=== PATIENT | female | born 1985 | race Caucasian/White ===

== ENCOUNTER 2017-08-26 23:55 | Emergency (ER) | payer MEDICAID, SELFPAY ==
[2017-08-26 23:55] VITALS: BP 129/65; PULSE 65; RESP 16; TEMP 36.8; O2SAT 98; BMI 32.5
--- NOTE | 2017-08-27 00:07 | ED.VISSUMM ---
- ER Visit Summary Date of Service: 08/27/17 Chief Complaint: [] Nausea vomiting and diarrhea History of Present Illness: The patient is a 31 F getting intermittent abdominal right upper quadrant pain for last several months. She had an attack this morning that lasted for a short period time and went away. Tonight at 8 PM she developed nausea vomiting diarrhea. No bad food exposures. No recent antibiotics. No significant abdominal pain currently. She tried Phenergan but can keep it down. Came in for further evaluation. Physical Examination: Vital signs reviewed General: Well-nourished well-developed Head: Normocephalic atraumatic Eyes: Pupils equal round and reactive to light extraocular movements intact ENT: TMs clear no hemotympanum no trauma Neck: Nontender full range of motion Cardiovascular: Regular rate rhythm no murmurs normal S1-S2 Respiratory: No distress clear to auscultation bilaterally chest nontender Abdomen: Soft nontender nondistended normal bowel sounds no masses Back: Nontender no CVA tenderness Extremities: Nontender active range of motion ?4 extremities no trauma Skin: Normal color no trauma Neuro alert oriented cranial nerves II through XII intact normal strength sensation reflexes Test Results: [] Emergency Department Course and Treatment: [] IV fluid bolus and Phenergan and Imodium. Lab work obtained. Mildly low potassium only. White count is 12.0 likely from the vomiting and diarrhea. Patient given IV fluids Phenergan Imodium and potassium. I do not feel she needs admitted. I think she likely has viral gastroenteritis. She will follow-up for an ultrasound for gallbladder. This can be done as an outpatient. Treatment Plan: [] Disposition: [] Impression: [] Abdominal pain resolved Nausea and emesis Diarrhea Hypokalemia This note was generated with Fastr dictation software. It may contain incorrect words, spelling, and punctuation that were not noted in review of the chart prior to signing ED Disposition - Plan for ED Patient: Chief Complaint: Nausea/Vomiting/Diarrhea Referrals: Fredrick Boland DO [Primary Care Provider] -
[2017-08-27] MEDS: 0.9% Normal Saline 1,000 ML 1000 ML IV (00:18)
[2017-08-27] MEDS: Loperamide 2 MG Capsule 4 MG PO (00:18)
[2017-08-27 00:28] LABS: Absolute Lymphocyte Count 0.52 X10^3/ul (0.83-4.51); Absolute Neutrophil Count 10.7 X10^3/uL (2.0-7.7); Basophil# 0.02 X10^3/uL; Basophil% 0.2 % (0-1); Eosinophil# 0.08 X10^3/uL; Eosinophils% 0.7 % (0-5); Hematocrit 44.8 % (37-47); Lymphocyte # 0.52 X10^3/ul (4.0); Lymphocyte % 4.3 % (19-41); Mean Corp Hgb Conc 33.5 g/gl (32-36); Mean Corpuscular Hgb 30.9 pg (27.0-32.0); Mean Corpuscular Volume 92.4 fL (81-99); Mean Platelet Vol. 9.2 fl (6.2-12.0); Monocyte# 0.62 X10^3/uL; Monocyte% 5.2 % (0-10); Neutrophil # 10.73 X10^3/uL (2.7-7.7); Neutrophil % 89.3 % (47-70); POSITIVE DIFFERENTIAL YES; Platelet Count 317 K/mm3 (150-450); RBC Distribution Width CV 12.4 % (11.6-14.6); RBC Distribution Width SD 41.8 fl (35.1-43.9); Red Blood Count 4.85 M/mm3 (4.2-5.4)
[2017-08-27 00:29] LABS: Differential Indicated SCAN CRITERIA MET; POSITIVE COUNT NO; POSITIVE MORPHOLOGY NO
[2017-08-27 00:53] LABS: AST(SGOT) 12 U/L (15-37); Alanine Aminotransfer ALT/SGPT 16 U/L (13-56); Albumin, Serum 3.6 g/dL (3.2-5.0); Alkaline Phosphatase 65 U/L (45-117); Anion Gap 9 (5-15); BUN 6 mg/dL (7-18); BUN/Creat Ratio 6.3 RATIO (10-20); Bilirubin, Direct 0.12 mg/dL (0.00-0.30); Calcium,Total 8.4 mg/dL (8.5-10.1); Chloride 106 mmol/L (98-107); Creatinine, Serum 0.95 mg/dL (0.55-1.02); EST Glomerular Filtration Rate 72 mL/min (>60); Est Glom Filt Rate - Afr Amer 87 mL/min (>60); Estimated Creatinine Clearance 84.97 ml/min; Globulin 3.8 g/dL (2.2-4.2); Glucose 142 mg/dL (74-106); Lipase 73 U/L (73-393); Pregnancy, Serum, hCG Quali. NEGATIVE Negative (0-9 Nonpreg); Protein, Total 7.4 g/dL (6.4-8.2); Sodium Level 143 mmol/L (136-145)
--- NOTE | 2017-08-27 01:06 | ED.DEP ---
ED Disposition - Plan for ED Patient: Disposition: Home or Assisted Living Chief Complaint: Nausea/Vomiting/Diarrhea Instructions: ED Diet Vomiting Diarrhea Prescriptions: Ondansetron [Zofran Odt] 4 mg PO Q8H PRN PRN #10 tab PRN Reason: Nausea Referrals: Fredrick Boland DO [Primary Care Provider] -
--- NOTE | 2017-08-27 01:46 | ED.RN ---
IV DC'ED, CATHETER INTACT, SMALL GAUZE DRESSING PLACED. DISCHARGE INSTRUCTIONS GIVEN TO AND REVIEWED WITH PATIENT, PATIENT DENIES QUESTIONS OR CONCERNS AND VOICES UNDERSTANDING OF DISCHARGE INSTRUCTIONS. PT AMBULATES OUT OF ROOM WITHOUT DIFFICULTY.
== END 2017-08-27 01:47 | disposition home or self-care (01) ==
PROVIDERS: Emergency Provider Emergency Medicine; Family Provider Student in an Organized Health Care Education/Training Program; PCP Student in an Organized Health Care Education/Training Program
DX: E87.6 Hypokalemia (principal); R11.2 Nausea with vomiting, unspecified; R19.7 Diarrhea, unspecified; R10.11 Right upper quadrant pain; Z72.0 Tobacco use
CPT/HCPCS: 80048; 80076; 83690; 84703; 85025; 96361; 96374; 96376; 99283; J7030

== ENCOUNTER 2017-10-10 08:30 | Outpatient (RCR) | payer MEDICAID, SELFPAY ==
--- NOTE | 2017-10-10 13:29 | BH.SGPN ---
Service Group Progress Note - Session Psychotherapy Session #2 Date Open:: 10/10/17 - 6 group members Time Started:: 10:18 Time Stopped:: 11:14 Targeted Problem #:: 1 Type of Group:: Illness Management Goal of Group:: To increase understanding of what stress is, identify current life stressors, and connect impact stressors have on mental health. Client Response/Progress/Benefit:: Client responded well to session, tearful throughout, but participating in discussion. Client shared stress can impact someone emotionally, physically, and mentally. Client shared stress impacts client's sleep, concentration, and appetite. Client identified her current stressors as fear, relationships, loneliness, anxiety, and anger. Client stated her stress jar is overflowing which leads to client having crying spells, suicidal thoughts, and self-harm. Client reported identifying and processing her stressors was challenging, but helped client gain awareness of just how much is going on. Client appeared to benefit from processing her stressors and receiving emotional support. Client to continue IOP to prevent decompensation. Eye Contact:: Good Motor Activity:: Restless Appearance:: Disheveled Speech:: Soft Mood:: Anxious, Dysthymic Affect:: Congruent - became tearful Thoughts:: Racing, No evidence of hallucinations/delusions noted Staff Interventions:: Therapist facilitated discussion about stress. Therapist facilitated an activity in which group members were asked to identify various stressors they have in their life currently. Therapist instructed group members to indicate if certain stressors were larger than others. Therapist led processing of each member?s stress jar and helped them connect impact the stress has on their mental health. Psychotherapy Session #3 Behaviors/Verbalizations/Mental Status:: Client was not in 3rd group long enough to bill. Error in session selection.
--- NOTE | 2017-10-10 13:30 | BH.COMM ---
Communication Note - Communication with Client Communication Note: Therapist met with client to complete intake paperwork, build rapport, and answer client's questions. Therapist also provided emotional support as client expressed feeling overwhelmed, hopeless, and having passive suicidal thoughts. Therapist told client a therapist would follow up with client after group.
--- NOTE | 2017-10-10 13:31 | BH.MDN_ITS ---
Multi-Disciplinary Note - Note 30-min Individual Time Started:: 12:00 Date: 10/10/17 Purpose of session/treatment goals addressed:: Met with pt to review current symptoms and complete a risk assessment. Eye Contact:: Good Motor Activity:: Appropriate Appearance:: Casual Speech:: Appropriate Mood:: Depressed Affect:: Flat Thoughts:: Linear, Logical, No evidence of hallucinations/delusions noted Staff Interventions:: Performed risk assessment on pt. Worked with pt to develop plan for this evening to manage emotions. Encouraged pt to reach out to crisis or go to the ER if SI returns. Client Response:: Pt reports I really liked the program. States that she got a great deal of education and support from staff and peers today. Verbalized to staff during 1st group suicidal thoughts over the weekend. Currently denies any active suicidal ideations, plan, or intent. Reports that she had a very difficult weekend and had actually packed a bag and almost went to the ER. Reports that she spoke with crisis over the phone as well. This weekend was challenging as her BF moved some of his belongings out of the house. She also continues to feel alone and isolated in the house. She reached out to support ( friend, mother) as well as crisis when overwhelmed which decreased her SI. Also used some distraction and coping skills to manage emotions and thoughts. Feeling more positive, optimistic, and future-oriented today. Protective factor is her son. Has a plan to spend tonight with her friend (to decrease lonliness) and watch movies. Was able to see some progress since last week which includes opening up communication with her mother and starting this program. Is meeting with her son tomorrow for a medical appointment which she is looking forward too. Smiling at times and made several jokes about her taste in movies. Risks/Concerns:: Does not present as imminent danger to self or others due to no active suicidal ideations, plan, or intent. Last suicidal thought was yesterday. Verbally contracts for safety. Has plan to spend the night with support to decrease lonliness, depression, and anxiety. Has crisis numbers and has shown willing to reach out when symptoms worsen. Future-oriented. Protective factor is her son. No criteria noted which would indicate involuntary admission. Progress Toward Goals/Plan:: Progress noted during first day in IOP. Pt reports increased support and education. Reports increase in future-oriented thoughts. Plan is too continue in IOP to maintain safety, increase coping skills, prevent further decompensation, improve functioning, and decrease depressive symptoms. Time Stopped:: 12:25
--- NOTE | 2017-10-12 09:29 | BH.COMM ---
Communication Note - Communication with Client Communication Note: Therapist called client as she missed her transportation and no called/no showed for her scheduled IOP session today. Therapist attempted to call client, but unable to leave a message due to a full mailbox. Therapist called client's emergency contact, but the emergency contact had not heard from client. Therapist was then able to reach client, client stated she overslept and missed her alarm. Client reports plan to attend group on Tuesday10/14/17.
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
--- NOTE | 2017-10-14 12:35 | BH.DR.ITP ---
Initial Treatment Plan - Patient Information Visit Information: ADMISSION DATE: EXPECTED LOS: 4-6 weeks Diagnoses:: Bipolar disorder F 31.9 - Problems/Symptoms Problem #1:: Mood instability/mixed mood symptoms Symptom:: Depression, crying, anhedonia, decreased energy, decreased concentration, irritability, anger, suicidal ideation, biologic disruption of sleep and appetite Problem #2:: Anxiety Symptom:: rumination, panic
--- NOTE | 2017-10-17 12:06 | BH.COMM ---
Communication Note - Communication with Client Communication Note: Client left a message, before hours, canceling her scheduled IOP and individual session today due to illness. Client reports plan to attend group 10/19/17.
--- NOTE | 2017-10-18 15:13 | BH.COMM ---
Communication Note - Communication with Client Communication Note: Client called and left a voicemail to cancel group last evening. Client stated not feeling like being around other people as primary reason for cancelling. Therapist attempted to call and follow up with CLient however was unable to reach her. A discrete message was left encouraging client to return this thrapist's call.
--- NOTE | 2017-10-18 15:23 | BH.COMM ---
Communication Note - Communication with Client Communication Note: Pt left voicemail today stating that she would not be attending IOP program. Reports that she is unsure if she will return as currently she doesn't want to be around people. Asked that we call her back to discuss this furhter. Called pt back and left message.
--- NOTE | 2017-10-19 16:49 | BH.COMM ---
Communication Note - Communication with Client Communication Note: Client called requesting to speak with this therapist. She indicated wanting to be alone the past few days which negatively impacted Client mental health. She went on to discuss that everything is gradually getting worse and indicates increased depressive sx. Client expressed wanting to re-engage in IOP however would like to meet individually with this therapist prior to doing so. Client believes this will ease anxiety related to attending group. Therapist scheduled to meet with CLient 10/20 at noon and client will attend regularly scheduled group on following date.
--- NOTE | 2017-10-20 14:27 | BH.COMM ---
Communication Note - Communication with Client Communication Note: Client called and left this therapist a voicemail indicating that she would be unable to attend individual appointment scheduled for noon on this date. CLient indicated that she had been granted visitation with her son and was planning to spend time with him but would be attending group scheduled the following date, 10/21/17. Therapist attempted to reurn Client message however unable to reach CLient and could not leave a message as voicemail is full. Will follow-up with client.
--- NOTE | 2017-10-21 14:37 | BH.COMM ---
Communication Note - Communication with Client Communication Note: Client scheduled for group and individual session on this date however did not attend appointment. Therapist attempted to reach client but unable to. Unable to leave message as mailbox was full. Contacted client emergency contact due to inability to reach client. CLient mother indicated speaking with her this morning and would check-in again to ensure safety. Will follow-up Tuesday.
--- NOTE | 2017-10-21 15:49 | BH.COMM ---
Communication Note - Communication with Client Communication Note: Discussed case with therapist and team. Pt has not been compliant with [facility] program rules for cancellations and attendance. Plan is to discharge from [facility] if pt does not reach out to staff on 10/24/17.
--- NOTE | 2017-10-21 15:52 | BH.COMM_ITS ---
Communication Note - Communication with Client Communication Note: Discussed case with therapist and team. Pt has not been compliant with [facility] program rules for cancellations and attendance. Plan is to discharge from [facility] if pt does not reach out to staff on 10/24/17.
--- NOTE | 2017-10-24 15:40 | BH.COMM ---
Communication Note - Communication with Client Communication Note: Client called and left a message indicating wanting to begin the IOP program again. Client discussed plans to attend following date, 10/25.
[2017-11-04 15:00] VITALS: BP 108/72; PULSE 70; RESP 14
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
--- NOTE | 2017-11-08 15:25 | BH.MTP_ITS ---
Master Treatment Plan - Patient Information Program Physician:: Daysi Cloud Primary Therapist:: CHANELL Brewer - Psychiatric Diagnoses Psychiatric Diagnoses:: Bipolar disorder unspecified F 31.9-current mixed mood symptoms. Anxiety unspecified. Borderline personality disorder. Cocaine use disorder in remission. Nicotine use disorder. Alcohol use disorder Diagnosis Code(s):: F 31.9 - Estimated LOS Estimated LOS (in weeks):: 6 Problem/Goal #1 - Problem/Goal #1 Stated Goal:: Client will increase mood stability and decrease depressive symptoms, anger/irritability, and suicidal ideation due to Bipolar I through Intensive Outpatient Program. Description of Barriers: Client reports several psychosocial barriers including increased symptoms of anxiety and depression, including chronic passive suicidal ideation and recent ingestion of multiple tylenol with intent unclear. CLient additionally reports temporary loss of custody of her son following CSB involvement, recent end of a 9 year relationship, increased financial stress, poor boundaries, impulsivity, anticipated loss of housing due to financial problems, previous alcohol and drug misuse, few healthy supports, and hx of isolative and avoidant behaviors Functional Impact: Client describes symptoms are impacting her daily life. Indicates I have lost everything and shared that this has directly impacted self-esteem, depression, and anxiety. Client went on to discuss significant difficulties with concentration and thinking clearly due to recent influx in rumination. She shared experiencing dx panic attacks and often spends much of the day in bed as she does not have the energy or motivation to do anything. Client shared has begun to impact her comfort levels when socializing and caused some increased isolation. Client indicates ongoing intrusive thoughts and rumination throughout the day, which has led her to struggle with functioning at baseline. Client discussed passive thoughts of though denies current SI, plan, or intent. Goal Relevant Strengths/Supports: Client is open to treatment and expresses high levels of motivation to improve mental health sx, she is a caring mother which motivates client to improve her mental health for her son. Client has a good sense of humor, is empathetic, and resilient. - Objectives Objective #1 Stated Objective: Client will identify and replace 2-3 negative thinking patterns that mediate feelings of hopelessness and helplessness. Interventions: Through groups and individual therapy, pt. will be provided with education on cognitive distortions, mistaken beliefs, and identifying and combating negative self-talk. Therapist will help pt. explore connection between thoughts, feelings, and actions. Discharge Criteria: Pt. will be able to identify 2-3 negative thinking patterns and be able to effectively stop, challenge, or cope with those negative thoughts. Target Date: 11/21/17 Review Date: 11/09/17 Objective #2 Stated Objective: Work with client to develop a ?crisis plan? which includes emergency telephone numbers, 3-4 coping strategies for SI, lists of supports, positive aspects of life, and motivations. Work with client to identify 3-4 sources or triggers to suicidal ideations to increase insight. Identify 3 effective thought-stopping skills to utilize. Interventions: Therapist will provide list of crisis phone numbers. Therapist will work with client to identify effective coping strategies and steps to take in time of mental health crisis. Discharge Criteria: Client will have achieved this goal once he completes his safety plan and is able to utilize coping and thought replacement strategies. Target Date: 11/21/17 Review Date: 11/09/17 Problem/Goal #2 - Problem/Goal #2 Stated Goal:: Client will increase mood stability and reduce ruminating thoughts which cause depression and anxiety due to Bipolar II through Intensive Outpatient Services. Description of Barriers: Client reports several psychosocial barriers including increased symptoms of anxiety and depression, including chronic passive suicidal ideation and recent ingestion of multiple tylenol with intent unclear. CLient additionally reports temporary loss of custody of her son following CSB involvement, recent end of a 9 year relationship, increased financial stress, poor boundaries, impulsivity, anticipated loss of housing due to financial problems, previous alcohol and drug misuse, few healthy supports, and hx of isolative and avoidant behaviors Functional Impact: Client describes symptoms are impacting her daily life. Indicates I have lost everything and shared that this has directly impacted self-esteem, depression, and anxiety. Client went on to discuss significant difficulties with concentration and thinking clearly due to recent influx in rumination. She shared experiencing dx panic attacks and often spends much of the day in bed as she does not have the energy or motivation to do anything. Client shared has begun to impact her comfort levels when socializing and caused some increased isolation. Client indicates ongoing intrusive thoughts and rumination throughout the day, which has led her to struggle with functioning at baseline. Client discussed passive thoughts of though denies current SI, plan, or intent. Goal Relevant Strengths/Supports: Client is open to treatment and expresses high levels of motivation to improve mental health sx, she is a caring mother which motivates client to improve her mental health for her son. Client has a good sense of humor, is empathetic, and resilient. - Objectives Objective #1 Stated Objective: Client will identify 2-3 anxiety producing thoughts that tends to ruminate on, and reduce this by increasing self-awareness and problem solving. Interventions: Therapist will help client identify internal struggles client faces, including anxiety around loss of relationship, lack of harmful means of self-soothing, loss of temporary custody of son, and other identified stressors. Discharge Criteria: Client will have achieved this objective when able to verbalize anxiety-producing thoughts and identify 2-3 ways to cope with them. Target Date: 11/21/17 Review Date: 11/09/17
== END 2017-10-24 23:59 ==
LOC: BHIOP 08:30
PROVIDERS: Family Provider Student in an Organized Health Care Education/Training Program; PCP Student in an Organized Health Care Education/Training Program; Visit Provider Psychiatry & Neurology Psychiatry
DX: F31.60 Bipolar disorder, current episode mixed, unspecified (principal); F41.9 Anxiety disorder, unspecified; F60.3 Borderline personality disorder; F11.20 Opioid dependence, uncomplicated; F17.210 Nicotine dependence, cigarettes, uncomplicated; F10.20 Alcohol dependence, uncomplicated; Z79.899 Other long term (current) drug therapy; D50.9 Iron deficiency anemia, unspecified; E55.9 Vitamin D deficiency, unspecified
CPT/HCPCS: 99204; H0035; H2012; H2020; T1002; 90832

== ENCOUNTER 2017-10-25 09:00 | Outpatient (RCR) | payer MEDICAID, SELFPAY ==
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
--- NOTE | 2017-10-26 13:41 | BH.SGPN ---
Service Group Progress Note - Session Psychotherapy Session #3 Date Open:: 10/26/17 - 6 group members Time Started:: 11:16 Time Stopped:: 12:15 Targeted Problem #:: 1 Type of Group:: Functional Skills Development Goal of Group:: To identify personal pitfalls and what keeps them stuck from moving forward. Client Response/Progress/Benefit:: Client responded well to session, active participant. Client identified personal pitfalls of hers to be self-sabotage, self-destructive behaviors, anger, self-harm, and relapse. Client reported her self-sabotaging behaviors have kept client stuck because I keep hitting rock bottom. Client stated she has increased awareness of her self-destructive behaviors and hopes to change them. Client helped the group identify strategies to overcome and prevent pitfalls such as focusing on positives, using coping skills daily, and challenging negative thoughts. Client appeared to benefit from increasing awareness of personal pitfalls and identifying strategies to overcome them. Progress noted in client's improved attendance consistency, but continue to benefit from emotional regulation. Eye Contact:: Good Motor Activity:: Appropriate Appearance:: Neat - hair clean and makeup done Speech:: Appropriate Mood:: Dysthymic Affect:: Congruent Thoughts:: Linear, No evidence of hallucinations/delusions noted Staff Interventions:: Therapist facilitated activity in which group members were given the task to identify personal pitfalls and what keeps them stuck from moving past the pitfall. Therapist provided group members with the homework assignment of identifying strategies that can help them overcome pitfalls.
--- NOTE | 2017-10-26 16:04 | BH.SGPN ---
Service Group Progress Note - Session Psychotherapy Session #1 Date Open:: 10/26/17 Time Started:: 09:06 Time Stopped:: 10:06 Targeted Problem #:: 1 Type of Group:: Process Goal of Group:: The goal of today's group was to check-in with client's mood, stressors, and positives, review homework and introduce topic for the day. Client Response/Progress/Benefit:: Client reported her ex-boyfriend visited her yesterday which led to a roller coaster of emotions. Client shared her visit with her ex-boyfriend was really nice because there wasn't any fighting or arguing. Client reported she thought the visit gave her closure to their relationship. Client shared she recognizes that she has been isolating the past 2 weeks which hasn't helped her situation and she needs to be around support. Client seemed to benefit from expressing thoughts and feelings. Client's progress has been hindered by inconsistent attendance. Eye Contact:: Fair Motor Activity:: Restless Appearance:: Casual Speech:: Appropriate Mood:: Anxious, Depressed Affect:: Congruent Thoughts:: Linear, No evidence of hallucinations/delusions noted Staff Interventions:: Therapist used open-ended questions to elicit information about client's current stressors and mood state. Therapist was supportive by using active listening and reflection.
--- NOTE | 2017-10-26 16:12 | BH.MDN_ITS ---
Multi-Disciplinary Note - Note 30-min Individual Time Started:: 10:19 Date: 10/26/17 Purpose of session/treatment goals addressed:: The purpose of this session was to follow-up with Client and assess current risk as she had expressed increased suicidal ideation without intent on previous date. Another purpose was to review safety plan and discuss the importance of setting and enforcing healthy boundaries as a part of crisis prevention planning. Eye Contact:: Good Motor Activity:: Appropriate Appearance:: Casual Speech:: Appropriate Mood:: Anxious, Dysthymic Affect:: Congruent Thoughts:: Linear, Logical, No evidence of hallucinations/delusions noted Staff Interventions:: Therapist used open-ended and furthering questions to ellicit additional information regarding current symptoms and ability to utilize safety plan previous night. Therapist completed an assessment to determine Client current risk level and reviewed healthy vs. unhealthy coping skills. Provided basic psychoeducation regarding Borderline Personality Disorder and discussed the role unhealthy supports may have on Clients ability to improve emotion regulation and crisis prevention skills. Client Response:: Client willing to meet with this therapist in order to follow- up as she had expressed increased suicidal ideation on previous date. Client discussed being able to successfully manage her emotions following group yesterday indicated that she had actually had a good evening. Client discussed that she spent some time talking to her neighbor which was helpful as she was able to process recent events and stressors. Client went on to share that spending time with her neighbor always puts her in a better mood as she feels as though someone actually gets it. She discussed feeling nervous that when she has to move out of her apartment she will have no one to talk to his client indicates having healthy social supports. Client went on to share that she had a surprisingly pleasant experience with her ex-boyfriend on the previous night as he had stopped by to picking belt operator some of his belongings. She discussed that he had brought a pizza and the two spent time talking for about an hour. She indicated being surprised they were able to remain civil with one another. Client disclosed being unsure as to whether or not this was a good or bad experience as it only made her miss the relationship even more. She appeared to connect well to conversation regarding characteristics of toxic relationships and indicated knowing that it would be unhealthy for her to continue to put herself in situations like the one she had last night as she is tempted to try to rekindle the relationship. Client shared wanting to remain amicable with her ex for the sake of her son, but fears that this would make her miss the relationship. She additionally shared fear of setting boundaries as she worries he will end up being a distant father and uninvolved in her son' s life. Client was willing to discuss guidelines for effective communication and strategies in order to advocate for her son as well as ensure that her boundaries are being respected. Client indicated that her mood is often dictated by the relationship and the last incident leading to the end in the relationship had led to her current emotional state. Client denies any current suicidal ideation, plan, or intent; however, went on to express ongoing concern with living alone as she continues to struggle with increased loneliness and negative thoughts. She shared having fears that one day she will not wake up and no one will miss me. Client struggled to challenge this thought however was able to identify that her mother and son would miss her she should ongoing motivation to improve overall sense of self-worth and be able to allow herself to dictate her happiness rather than feel as though others are in control of whether or not she is happy. Client did well to review with therapist current safety plan as well as receptive of updating this plan for homework. She expressed plans to take with her mother on the phone tonight and indicated planning to get up and do her hair and makeup again tomorrow as this had helped to improve her mood this morning. Risks/Concerns:: Client denies any active Suicidal Ideation, plan, or intent as of this date, 10/26/17. She reports ongoing chronic passive thoughts of and feelings; however, denies any access to lethal means or intent. Client reports disposing of any excess medications. Identifies wanting to improve her mental health as well as set a positive example for her son as major sources of motivation. Client future oriented AEB plans to go to spend time talking to her mother on the phone this evening. Client indicates an ability to maintain safety of self and others at this time and is aware of local crisis resources available. Progress Toward Goals/Plan:: Progress. Client is beginning to display progress regarding her ability to follow through with treatments goals and expectations. This is evidenced by Client increased ability to maintain scheduled appointments , adhere to Safety Plan, and begin to implement healthy self-care strategies. Client reports no Suicidal Ideation as of this date (10/26/17) and indicates using healthy distraction via talking to her neighbor as a means of coping with loneliness. Client able to remove all lethal means from her house. She indicates engaging in self care this morining by getting up in time to do her hair and make-up. However, Client continues to struggle with maintaining healthy boundaries, specifically with her ex boyfriend. She reports knowing positive mood on this day is due to seeing her ex on previous date. Current plan is to continue to work on healthy distress tolerance skills as well as challenging negative and distorted thinking patterns in order to improve self worth and maintain stability. Time Stopped:: 10:49
--- NOTE | 2017-10-26 16:29 | BH.MTP ---
Master Treatment Plan - Patient Information Program Physician:: Daysi Cloud Primary Therapist:: CHANELL Brewer - Psychiatric Diagnoses Psychiatric Diagnoses:: Bipolar disorder unspecified F 31.9-current mixed mood symptoms. Anxiety unspecified. Borderline personality disorder. Cocaine use disorder in remission. Nicotine use disorder. Alcohol use disorder Diagnosis Code(s):: F 31.9 - Estimated LOS Estimated LOS (in weeks):: 6 Problem/Goal #1 - Problem/Goal #1 Stated Goal:: Stabilize anxiety level while increasing ability to function and decreasing ruminative thoughts on a daily basis through Intensive Outpatient Program. Description of Barriers: Client has multiple psychosocial stressors including relationship tension, recent loss of
--- NOTE | 2017-11-01 12:21 | BH.COMM ---
Communication Note - Communication with Client Communication Note: Client called and left voicemails cancelling her appointments sheduled for yesterday and today due to being ill and having another appointment scheduled with her rehabilitation coordinator during time of group. Therapist contacted client to follow-up. She reports feeling physically ill but is doing pretty good mental health shaw. Therapist reviewed attendance policy with client who indicates understanding the policy and plans to attend group on and Tuesday of this week. Client additionally shared believing that the program has bee helping and is motivated to continue to make strides towards improving her metal health at this time.
--- NOTE | 2017-11-01 12:24 | BH.COMM_ITS ---
Communication Note - Communication with Client Communication Note: Client called and left voicemails cancelling her appointments sheduled for yesterday and today due to being ill and having another appointment scheduled with her defense attorney during time of group. Therapist contacted client to follow-up. She reports feeling physically ill but is doing pretty good mental health shaw. Therapist reviewed attendance policy with client who indicates understanding the policy and plans to attend group on and Tuesday of this week. Client additionally shared believing that the program has bee helping and is motivated to continue to make strides towards improving her metal health at this time.
--- NOTE | 2017-11-03 17:20 | BH.DS ---
Discharge Summary - Demographics Date of Admission:: 10/10/17 Discharge Date: 11/02/17 Presenting Problems at Admission:: Client is a 32-year-old female with history of bipolar disorder, anxiety, and depression. She was referred to [facility] program due to worsening symptoms of depression, including increase SI, and anxiety. Patient reports a long-standing history of depression and anxiety that is been worse over the past 2 years, with further escalation in the past 8 months associated with multiple stressors including the end of a volatile relationship with boyfriend of 9 years, temporary loss of custody of her son due to CSB intervention, family stress, and medication noncompliance. Client describes symptoms at time of admission include chronic suicidal ideation with recent gesture via medication ingestion occurring in the week prior to admission, currently denies plan or intent, depressed mood with crying, anhedonia, decreased energy, decreased concentration, increased appetite, ruminative anxiety, frequent panic attacks, poor coping skills, and increased emotion dysregulation. Discharge Diagnoses:: Bipolar disorder unspecified F 31.9-current mixed mood symptoms. Anxiety unspecified. Borderline personality disorder. Cocaine use disorder in remission. Nicotine use disorder. Alcohol use disorder Reason for Discharge:: Client was admitted to [facility] ICU for suicide attempt, via medication overdose interrupted by police and is in need of a higher level of care at this time for stabilization, mood stability and medication management. Due to the nature of client's discharge, client was unable to complete discharge handouts and aftercare planning. - Treatment Progress During Treatment & Response: Minimal progress able to be made due to inconsistency of CLient attendance. Client admitted to the IOP program for 4 weeks and attended 3 of the scheduled appointments during that time. CLient often no showed the preschedule transportation or would call and cancel making it difficult to beginning working on improving CLient ability to manage mental health symptoms. When in attendance, Client did well to participate in both the group and individual sessions. She was beginning to display increased levels of motivation to improve symptom management. Client was able to complete a crisis safety plan with this therapist and successfully disposed of several bottles of excess medication. She indicated feeling as though she benefitted from the days she was in the group environment; however, found it difficult to get the motivation to leave her house or challenge negative thinking in order to get here in the morning. Issues Still to be Addressed:: Due to recent hospitalization, Client unable to achieve her treatment goals and therefore could benefit from continued work in these areas. This includes additional focus on improving mood stability and decreasing frequency and intensity of depressive symptoms, specifically suicidal ideation, reduction of maladaptive coping behaviors, stress management, and challenging cognitive distortions. Client gained some awareness of unhealthy relationships and boundary setting as well as increased insight into use of maladaptive coping skills such as avoidance, isolation, and self harming behavior. Client can continue to benefit from increasing supports, identifying motivations to live, challenging negative self talk, and improving use of healthy distress tolerance skills to avoid impulsive and potentially lethal forms of coping. Client can continue to benefit from increasing levels of insight and communication with supports about her warning signs, triggers, and suicidal ideation. There is a concern post discharge that client will continue to resort to isolation and avoidance as a means of coping, placing client at risk of not improving ability to manage sx of depression and overwhelming anxiety/stress. Discharge Recommendations/Instructions:: Client is currently admitted inpatient for Psychiaty services following discharge form [facility] due to recent suicide attempt. Client was informed she can to return to [facility] or [facility] post inpatient discharge should it be an appropriate level of care. Discharge Handout: Complete Discharge Handout with client on aftercare options and continuity of care.
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
== END 2017-11-03 15:11 | disposition short-term general hospital (02) ==
LOC: BHIOP 09:00
PROVIDERS: Family Provider Student in an Organized Health Care Education/Training Program; PCP Student in an Organized Health Care Education/Training Program; Visit Provider Psychiatry & Neurology Psychiatry
DX: F31.60 Bipolar disorder, current episode mixed, unspecified (principal); F41.9 Anxiety disorder, unspecified; F60.3 Borderline personality disorder; F11.20 Opioid dependence, uncomplicated; F17.210 Nicotine dependence, cigarettes, uncomplicated; F10.20 Alcohol dependence, uncomplicated; Z79.899 Other long term (current) drug therapy; D50.9 Iron deficiency anemia, unspecified; E55.9 Vitamin D deficiency, unspecified
CPT/HCPCS: H0035; H2012; 90834

== ENCOUNTER 2017-11-02 19:46 | Inpatient (IN) | payer MEDICAID, SELFPAY ==
[2017-11-02] VITALS (12 sets, daily range): BP systolic 100–138; BP diastolic 64–104; PULSE 79–102; RESP 14–25; TEMP 35.5–36.3; O2SAT 94–100; BMI 30.4; BMI 30.7
[2017-11-02] MEDS: Etomidate 20 MG/10 ML Vial IV (20:20)
[2017-11-02 20:21] LABS: Bedside Glucose 133 mg/dL (70-110)
[2017-11-02] MEDS: Succinylcholine Chloride 200 MG/10 ML Vial 100 MG IV (20:21)
[2017-11-02 20:27] LABS: Absolute Lymphocyte Count 2.31 X10^3/ul (0.83-4.51); Absolute Neutrophil Count 6.3 X10^3/uL (2.0-7.7); Basophil# 0.04 X10^3/uL; Basophil% 0.4 % (0-1); Eosinophil# 0.05 X10^3/uL; Eosinophils% 0.5 % (0-5); Hematocrit 42.9 % (37-47); Hemoglobin 14.8 g/dl (12.0-15.0); Lymphocyte # 2.31 X10^3/ul (4.0); Lymphocyte % 24.4 % (19-41); Mean Corp Hgb Conc 34.5 g/gl (32-36); Mean Corpuscular Hgb 31.2 pg (27.0-32.0); Mean Corpuscular Volume 90.5 fL (81-99); Mean Platelet Vol. 9.3 fl (6.2-12.0); Monocyte% 8.4 % (0-10); Neutrophil # 6.26 X10^3/uL (2.7-7.7); Neutrophil % 66.1 % (47-70); Platelet Count 372 K/mm3 (150-450); RBC Distribution Width CV 12.7 % (11.6-14.6); RBC Distribution Width SD 42.2 fl (35.1-43.9); Red Blood Count 4.74 M/mm3 (4.2-5.4); White Blood Count 9.5 K/mm3 (4.4-11.0)
[2017-11-02 20:28] LABS: POSITIVE COUNT NO; POSITIVE DIFFERENTIAL NO; POSITIVE MORPHOLOGY NO
[2017-11-02] MEDS: Propofol 10MG/Ml 1,000 MG/100 ML Bottle 2.724 MG CONT INF ×2 (20:34→23:16)
[2017-11-02 20:38] LABS: Anion Gap 10 (5-15); BUN 11 mg/dL (7-18); BUN/Creat Ratio 10.1 RATIO (10-20); Calcium,Total 9.3 mg/dL (8.5-10.1); Chloride 103 mmol/L (98-107); Creatinine, Serum 1.09 mg/dL (0.55-1.02); EST Glomerular Filtration Rate 61 mL/min (>60); Est Glom Filt Rate - Afr Amer 74 mL/min (>60); Estimated Creatinine Clearance 73.36 ml/min; Glucose 150 mg/dL (74-106); Potassium 2.6 mmol/L (3.5-5.1); Sodium Level 138 mmol/L (136-145)
--- NOTE | 2017-11-02 20:40 | RAD_ITS ---
STUDY: X-RAY - ABDOMEN/PELVIS REASON FOR EXAM: Female, 32 years old. NG tube placement TECHNIQUE: Single AP view of the abdomen / pelvis. COMPARISON: None. FINDINGS: Normal visualized lung bases. There is an unremarkable bowel gas pattern. There is no demonstrated free abdominal air. NG tube tip in the stomach. The visualized liver, spleen and kidneys are grossly normal in size and morphology. Normal soft tissue structures. Normal visualized osseous structures. RAD/Abdomen Single View (Portable) IMPRESSION: NG tube tip in the stomach. Nonspecific bowel gas pattern. Electronically Signed: Pola Mendez DO at 21:10 EDT , Service support ,
--- NOTE | 2017-11-02 20:43 | RAD_ITS ---
STUDY: X-RAY CHEST REASON FOR EXAM: Female, 32 years old. ET tube placement TECHNIQUE: Single AP portable view of the chest. COMPARISON: None. FINDINGS: Endotracheal tube in place with the tip 3.3 cm above the marianela. NG tube tip in the stomach. The lungs are clear and expanded. There is no demonstrated pleural abnormality. Normal size heart. Normal mediastinum and robin. Normal visualized pulmonary arteries. Normal visualized aortic arch and descending thoracic aorta. Normal visualized thoracic spine. Normal visualized ribs, clavicles, and shoulders. There is no demonstrated abnormality of the visualized soft tissue structures of the upper abdomen. RAD/Chest 1 View (Portable) IMPRESSION: Endotracheal tube tip in good position 3.3 cm above the marianela. NG tube tip in the stomach. No infiltrate. Electronically Signed: Pola Mendez DO at 21:09 EDT , Service support ,
--- NOTE | 2017-11-02 21:14 | ED.DCSUM_ITS ---
- ER Visit Summary Date of Service: 11/02/17 Chief Complaint: Overdose for suicide attempt History of Present Illness: The patient is a 32 F of bipolar disorder. Called her mom today states she was more depressed and was going to overdose. Greta was called and brought her in the emergency department. Patient herself is obtunded and give me any history. She is minimally responsive at all and has no verbal communication with me. She is breathing and has stable vital signs. All the history is from the mother and the squad. She has had prior suicide attempts before. She does have a known history of self-inflicted wrist cutting. Physical Examination: Young female vital signs are stable. Pulse ox 94% room air no hypoxia. Eyes are closed. She is minimally responsive to noxious stimuli. Pupils are 2 mm bilaterally. No facial trauma. Neck nontender no lymphadenopathy. Lungs clear to auscultation bilaterally. Heart regular rhythm rate 80s no murmur. Abdomen soft nontender. No signs of trauma. Extremities have no deformities. There is old scars on her left palmar forearm from self-inflicted wounds. But there is no acute lacerations. Back is nontender. Neurologically she is obtunded and does not follow commands. Test Results: CBC normal. Chemistry panel is unremarkable with normal BUN and creatinine and gap she does have a low potassium at 2.6. EKG sinus rhythm rate 82 with no acute signs of NC or ischemia. test and tox screen are pending. Alcohol is normal. BG T was 133. Chest x-ray postintubation shows ET tube above the marianela in good position with bilateral lung was inflated with no acute abnormalities and normal cardiac silhouette. KUB 1 view taken after the OG was inserted. And the OG is in good position in the stomach. Emergency Department Course and Treatment: Due to the patient's mental status and polypharmacy overdose she was intubated. On the first attempt with a glide scope and a 7F ET tube. Bilateral breath sounds were heard. Postintubation her sats are 100%. She will be treated with charcoal. She will be given a liter fluid because her pressure is 94/60. She will also be given IV potassium. Treatment Plan: Admit to the ICU. I have a call out to the night hospitalist. Disposition: Admission Impression: Acute polypharmacy overdose for suicide attempt. Intubated by the ER. Critical care time 35 minutes. History of bipolar disorder Hypokalemia. This note was generated with [employer] dictation software. It may contain incorrect words, spelling, and punctuation that were not noted in review of the chart prior to signing ED Disposition - Plan for ED Patient: Chief Complaint: Overdose Referrals: Fredrick Boland DO [Primary Care Provider] -
[2017-11-02 21:19] LABS: Pregnancy, Serum, hCG Quali. NEGATIVE Negative (0-9 Nonpreg)
[2017-11-02 21:20] LABS: Amphetamine Urine VISTA POSITIVE (<1000 ng/mL); Barbiturate Urine VISTA NEGATIVE (< 200 ng/mL); Benzodiazepine Urine VISTA POSITIVE (< 200 ng/mL); Cocaine Urine VISTA NEGATIVE (< 300 ng/mL); Ecstacy Urine VISTA POSITIVE (< 500 ng/mL); Methadone Urine VISTA NEGATIVE (< 300 ng/mL); PCP Urine VISTA NEGATIVE (< 25 ng/mL); THC Urine VISTA NEGATIVE (< 50 ng/mL); Vista UDS pH Range 5
[2017-11-02] MEDS: Activated Charcoal 50 GM/240 ML BOT NG (21:28)
[2017-11-02] MEDS: LORazepam 2 MG/ML Syringe IV (21:31)
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
--- NOTE | 2017-11-02 21:49 | EKG12_ITS ---
Test Reason : OVERDOSE Blood Pressure : / mmHG Vent. Rate : 082 BPM Atrial Rate : 082 BPM P-R Int : 150 ms QRS Dur : 098 ms QT Int : 494 ms P-R-T Axes : 029 007 055 degrees QTc Int : 577 ms Normal sinus rhythm Prolonged QT Abnormal ECG Confirmed by AZEEM VO, JOE ([id number]), editorial project manager TERRA OLIVER ([id number] on 11/04/2017 2:12:25 PM Referred By: SEAN Confirmed By:JOE GANN MD
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
[2017-11-02] MEDS: Chlorhexidine 15 ML PO (23:16)
[2017-11-02 23:42] LABS: AST(SGOT) 10 U/L (15-37); Alanine Aminotransfer ALT/SGPT 12 U/L (13-56); Albumin, Serum 3.2 g/dL (3.2-5.0); Alkaline Phosphatase 71 U/L (45-117); Bilirubin, Direct 0.21 mg/dL (0.00-0.30); Globulin 3.6 g/dL (2.2-4.2); Magnesium 2.1 mg/dL (1.6-2.6); Phosphorus 2.7 mg/dL (2.5-4.9); Protein, Total 6.8 g/dL (6.4-8.2)
[2017-11-03] VITALS (41 sets, daily range): BP systolic 91–140; BP diastolic 58–103; PULSE 74–100; RESP 8–29; TEMP 35.6–37.2; O2SAT 94–100; BMI 31.0
[2017-11-03 00:01] LABS: Base Excess -4 mmol/L (-2 to +2); Blood Gas Specimen Type ART; FI02 45; Mode A-C; O2 Delivery Device Vent; PEEP 5; PO2 130 mmHG (75-100); RR 15; SITE L Radial; SO2 99 % (95-99); Time Given 5; Total Carbon Dioxide 22 mmol/L; Vt 500; pCO2 35.1 mmHg (35-45); pH 7.39 (7.35-7.45)
[2017-11-03] MEDS: 0.9% Normal Saline 1,000 ML 150 ML IV ×5 (00:05→23:23)
[2017-11-03 00:14] LABS: M R Staph aureus DNA By PCR Negative (Negative); Probe Check PASS; Specimen Processing Control PASS
--- NOTE | 2017-11-03 00:38 | NURSING ---
Patient hypothermic at 95.[address] cristina ordered maint. fluids to be warmed. Fluids warmer set up and patient receiving fluids. Celine Hutchinson RN
[2017-11-03 01:01] LABS: Bedside Glucose 122 mg/dL (70-110)
[2017-11-03] MEDS: Propofol 10MG/Ml 1,000 MG/100 ML Bottle 2.724 MG CONT INF (04:21)
[2017-11-03] MEDS: CHLORHEXIDINE GLUC 2% CLOTH 1 EACH TOWELETTE TOPICAL (04:23)
[2017-11-03 05:05] LABS: Anion Gap 8 (5-15); BUN 9 mg/dL (7-18); Calcium,Total 7.9 mg/dL (8.5-10.1); Chloride 111 mmol/L (98-107); Creatinine, Serum 0.82 mg/dL (0.55-1.02); EST Glomerular Filtration Rate 85 mL/min (>60); Est Glom Filt Rate - Afr Amer 103 mL/min (>60); Estimated Creatinine Clearance 97.52 ml/min; Glucose 97 mg/dL (74-106); Potassium 3.3 mmol/L (3.5-5.1); Sodium Level 142 mmol/L (136-145)
[2017-11-03 05:35] LABS: Bedside Glucose 99 mg/dL (70-110)
--- NOTE | 2017-11-03 05:55 | RAD_ITS ---
STUDY: X-RAY CHEST REASON FOR EXAM: Female, 32 years old. Intubated TECHNIQUE: Single AP portable view of the chest. COMPARISON: 11/02/2017 FINDINGS: Endotracheal tube tip 4 cm superior to the marianela. The enteric tube courses inferior to the left diaphragm, its tip is not included or visualized. There are superimposed monitor leads. The lungs are clear and expanded. There is no demonstrated pleural abnormality. Normal size heart. Normal mediastinum and robin. Normal visualized pulmonary arteries. Normal visualized aortic arch and descending thoracic aorta. Normal visualized thoracic spine. Normal visualized ribs, clavicles, and shoulders. There is no demonstrated abnormality of the visualized soft tissue structures of the upper abdomen. RAD/Chest 1 View (Portable) IMPRESSION: Endotracheal tube in good position. No pulmonary edema, congestive heart failure or confluent pneumonia. There is no significant interval change. Electronically Signed: Holly Silva MD at 7:27 EDT , Service support ,
--- NOTE | 2017-11-03 05:55 | EKG12_ITS ---
Test Reason : AM EKG Blood Pressure : / mmHG Vent. Rate : 076 BPM Atrial Rate : 076 BPM P-R Int : 140 ms QRS Dur : 098 ms QT Int : 460 ms P-R-T Axes : 004 019 002 degrees QTc Int : 517 ms Normal sinus rhythm Low voltage QRS Prolonged QT Abnormal ECG No previous ECGs available Confirmed by AZEEM VO, JOE ([id number]), city editor TERRA OLIVER ([id number] on 11/08/2017 2:08:40 PM Referred By: FREDI Confirmed By:JOE GANN MD
--- NOTE | 2017-11-03 07:04 | PCM.CON.CC ---
Reason for Consult Date of Consultation: 11/03/17 Reason for Consultation: Acute respiratory failure History of Present Illness: The patient is a 32-year-old female, with a history as outlined below, who presented to the emergency department on November 02 following an intentional medication overdose. History pertinent to the patient's hospitalization was obtained primarily via chart review, as the patient is currently intubated and there is no family available at the bedside. The patient reportedly called her mother yesterday and stated her intentions to commit suicide. Authorities were dispatched perform a welfare check. The patient was transported to the hospital by EMS in an obtunded state. The patient was reportedly despondent about a number of life stressors. On presentation to the emergency department, the patient was noted to be afebrile hemodynamically stable. She was immediately intubated for airway protection. The exact number of tablets and exact medications ingested is not known. Laboratory evaluation revealed no evidence of a leukocytosis. Arterial blood gas post intubation was within normal limits. Chemistry profile revealed a potassium of 2.6, creatinine 1.09 and glucose of 150. Serum test was negative. Toxicology screen was positive for amphetamines, methamphetamine and benzodiazepines. The patient had an alcohol level of 18 mg/dL. MRSA screen was negative. Plain film chest x-ray revealed life-support devices appropriately positioned without acute cardiopulmonary process. The patient is currently pink slipped. Past Medical History Past Medical History (Chronic Problems): Chronic Problems Bipolar disorder (Chronic) Obesity (Chronic) Borderline personality disorder (Chronic) Tobacco use (Chronic) Allergies acetaminophen [From Vicodin] Adverse Reaction (Verified 11/02/17 19:53) Other hydrocodone bitartrate [From Vicodin] Adverse Reaction (Verified 11/02/17 19:53) Other Home Medications: Ambulatory Orders Medication Instructions Recorded ALPRAZolam [Xanax] 2 mg PO BID 12/25/13 Fluoxetine [Prozac] 60 mg PO DAILY 12/25/13 Lamotrigine [Lamictal] 200 mg PO DAILY 12/25/13 Trazodone HCl 300 mg PO QHS 07/31/15 Omeprazole 40 mg PO DAILY 08/27/17 Surgical History: - - ?1 Psychiatric History: Anxiety, Bipolar, Depression [employer]CH[employer] History: No pertinent [employer] history Lives: - - Patient recently broke up with her boyfriend whom she had been living with and is currently moving out with unclear living status. Smoking Status: Current every day smoker - Mother notes prior was smoking cigarettes however secondary to financial status now rolling on cigarettes, unclear how many per day. Tobacco Use: Cigarettes Alcohol: Occasional Drugs: None - *Family History Maternal History Items: No pertinent history Paternal History Items: - - Father with a history of CABG, coronary artery disease, aortic aneurysm status post repair. Review of Systems Unable to obtain accurate/complete ROS d/t: Due to current intubation and mechanical ventilation status Patient Problems: Active and Suspected Problems Suicide attempt (Acute) Objective: The patient's most recent lab work, culture data and imaging studies have all been personally reviewed. - Physical Exam General: - - Intubated, sedated and mechanically ventilated. HEENT: Atraumatic, PERRLA, Normocephalic Oral: Dry Mucosa, - - Endotracheal and OG tubes in place Neck: Supple, No Nodes, Trachea Midline Lungs: - - Mechanical breath sounds. Otherwise clear across anterior lung cruz. Cardiovascular: Regular rate, Regular Rhythm, Normal S1, Normal S2, No murmurs Abdomen: Bowel Sounds Present, Soft, Non Tender, Obese Extremities: No clubbing, No cyanosis, No edema Skin: No breakdown Musculoskeletal: No Muscle Wasting Lymphatic: No Cervical, Supraclavicular, or Inguinal Adenopathy Neurological: - - No focal neurological deficits. Attempts to move extremities. Will open eyes and follow simple commands. Vital Signs Temp Pulse Resp BP Pulse Ox 97.1 F L 85 14 139/95 H 100 11/03/17 07:00 11/03/17 07:00 11/03/17 07:00 11/03/17 07:00 11/03/17 07:00 Oxygen Delivery Method Mechanical Ventilator Weight: 204 lb 5.896 oz Body Mass Index (BMI) 30.7 Intake and Output for Last 24 Hours 11/01/17 11/02/17 11/03/17 23:59 23:59 23:59 Intake Total 1114 / 1114 Output Total 726 / 726 Balance 388 / 388 Laboratory Tests Past 24 Hrs 11/02/17 11/02/17 11/02/17 22:55 23:15 23:15 Specimen Type Sample Site pH Bicarbonate Actual POC Total CO2 Base Excess O2 Saturation O2 % ABG pCO2 ABG pO2 Chapo Test Respiration Rate O2 Delivery Device Minute Volume Vent Mode Tidal Volume POC PEEP Blood Gas Notified Whom Blood Gas Notified Time Sodium Potassium Chloride Carbon Dioxide Anion Gap BUN Creatinine Estim Creat Clear Calc Est GFR (MDRD) Af Amer Est GFR (MDRD) Non-Af BUN/Creatinine Ratio Glucose Hemoglobin A1c 5.0 Calcium Phosphorus 2.7 Magnesium 2.1 Total Bilirubin 0.80 Direct Bilirubin 0.21 AST 10 L ALT 12 L Alkaline Phosphatase 71 Total Protein 6.8 Albumin 3.2 Globulin 3.6 MRSA (PCR) Negative 11/02/17 11/03/17 23:53 04:15 Specimen Type ART Sample Site L Radial pH 7.39 Bicarbonate Actual 21.0 L POC Total CO2 22 Base Excess -4 L O2 Saturation 99 O2 % 45 ABG pCO2 35.1 ABG pO2 130 H Chapo Test NA Respiration Rate 15 O2 Delivery Device Vent Minute Volume 7.00 Vent Mode A-C Tidal Volume 500 POC PEEP 5 Blood Gas Notified Whom [facility] Blood Gas Notified Time 5 Sodium 142 Potassium 3.3 L Chloride 111 H Carbon Dioxide 23.0 Anion Gap 8 BUN 9 Creatinine 0.82 Estim Creat Clear Calc 97.52 Est GFR (MDRD) Af Amer 103 Est GFR (MDRD) Non-Af 85 BUN/Creatinine Ratio 11.0 Glucose 97 Hemoglobin A1c Calcium 7.9 L Phosphorus Magnesium Total Bilirubin Direct Bilirubin AST ALT Alkaline Phosphatase Total Protein Albumin Globulin MRSA (PCR) POC Glucose 11/03/17 11/03/17 05:32 00:52 POC Glucose 99 122 H Clinical Impression(s) from Imaging Studies KUB X-Ray 11/02/17 20:40 IMPRESSION: NG tube tip in the stomach. Nonspecific bowel gas pattern. Electronically Signed: Pola Mendez DO at 21:10 EDT , Service support , Chest X-Ray 11/02/17 20:43 IMPRESSION: Endotracheal tube tip in good position 3.3 cm above the marianela. NG tube tip in the stomach. No infiltrate. Electronically Signed: Pola Mendez DO at 21:09 EDT , Service support , Assessment/Plan Active and Suspected Problems Suicide attempt (Acute) RECOMMENDATIONS: 1. Place propofol on hold. Once patient is more alert, she will be transitioned to spontaneous mode mechanical ventilation. 2. Continue supplemental IV fluids for now, pending extubation. 3. Potassium repletion 4. Wean FiO2 to maintain oxygen saturations at or above 90%. 5. Discontinue aerosol treatments. 6. Continue Lovenox and Pepcid for ICU prophylaxis 7. Crisis evaluation once medically stabilized. IMPRESSIONS: 1. Acute respiratory failure The patient was intubated in the emergency department due to obtundation and the need for airway protection. She does not have any findings on chest imaging to suggest an underlying pulmonary infectious process. We will continue to monitor her on the ventilator and to her mentation improves. Plan to decrease/hold the patient's propofol. Once awake, she can be transitioned to CPAP mode mechanical ventilation. If the patient's mentation improved significantly and she is able to pass a spontaneous breathing trial, consideration can be given to potential extubation later this morning. Continue gentle supplemental IV fluid hydration for now. Discontinue scheduled aerosol treatments. The patient will require crisis evaluation, once medically stabilized. She is currently pink slipped. 2. Encephalopathy secondary to intentional polypharmacy overdose/suicide attempt Improving. Although the patient is currently sedated, she is able to open her eyes and follow some simple commands. Propofol will be placed on hold for now. Pending improvement in her mentation, a spontaneous breathing trial can be completed. 3. Hypokalemia/acute kidney injury Likely prerenal in etiology. Creatinine has improved with volume expansion. Potassium repletion is underway. 4. Personal history of bipolar disorder/tobacco dependence/obesity/borderline personality disorder Complicates care, management, recovery and prognosis. Nicotine replacement therapy can be offered to the patient while admitted to the hospital. TIME: 40 minutes of critical care time, independent of procedures, was spent addressing the patient's acute respiratory failure, encephalopathy secondary to intentional overdose, hypokalemia, acute kidney injury, review of all data and collaboration with the care team. ([id number]) Code Visit 9xxxx: [id number] Critical care first hour
--- NOTE | 2017-11-03 07:12 | CON.PCM_ITS ---
Reason for Consult Date of Consultation: 11/03/17 Reason for Consultation: Acute respiratory failure History of Present Illness: The patient is a 32-year-old female, with a history as outlined below, who presented to the emergency department on November 02 following an intentional medication overdose. History pertinent to the patient's hospitalization was obtained primarily via chart review, as the patient is currently intubated and there is no family available at the bedside. The patient reportedly called her mother yesterday and stated her intentions to commit suicide. Authorities were dispatched perform a welfare check. The patient was transported to the hospital by EMS in an obtunded state. The patient was reportedly despondent about a number of life stressors. On presentation to the emergency department, the patient was noted to be afebrile hemodynamically stable. She was immediately intubated for airway protection. The exact number of tablets and exact medications ingested is not known. Laboratory evaluation revealed no evidence of a leukocytosis. Arterial blood gas post intubation was within normal limits. Chemistry profile revealed a potassium of 2.6, creatinine 1.09 and glucose of 150. Serum test was negative. Toxicology screen was positive for amphetamines, methamphetamine and benzodiazepines. The patient had an alcohol level of 18 mg/dL. MRSA screen was negative. Plain film chest x-ray revealed life-support devices appropriately positioned without acute cardiopulmonary process. The patient is currently pink slipped. Past Medical History Past Medical History (Chronic Problems): Chronic Problems Bipolar disorder (Chronic) Obesity (Chronic) Borderline personality disorder (Chronic) Tobacco use (Chronic) Allergies acetaminophen [From Vicodin] Adverse Reaction (Verified 11/02/17 19:53) Other hydrocodone bitartrate [From Vicodin] Adverse Reaction (Verified 11/02/17 19:53) Other Home Medications: Ambulatory Orders Medication Instructions Recorded ALPRAZolam [Xanax] 2 mg PO BID 12/25/13 Fluoxetine [Prozac] 60 mg PO DAILY 12/25/13 Lamotrigine [Lamictal] 200 mg PO DAILY 12/25/13 Trazodone HCl 300 mg PO QHS 07/31/15 Omeprazole 40 mg PO DAILY 08/27/17 Surgical History: - - ?1 Psychiatric History: Anxiety, Bipolar, Depression [employer]IVE [employer]ER History: No pertinent [employer] history Lives: - - Patient recently broke up with her boyfriend whom she had been living with and is currently moving out with unclear living status. Smoking Status: Current every day smoker - Mother notes prior was smoking cigarettes however secondary to financial status now rolling on cigarettes, unclear how many per day. Tobacco Use: Cigarettes Alcohol: Occasional Drugs: None - *Family History Maternal History Items: No pertinent history Paternal History Items: - - Father with a history of CABG, coronary artery disease, aortic aneurysm status post repair. Review of Systems Unable to obtain accurate/complete ROS d/t: Due to current intubation and mechanical ventilation status Patient Problems: Active and Suspected Problems Suicide attempt (Acute) Objective: The patient's most recent lab work, culture data and imaging studies have all been personally reviewed. - Physical Exam General: - - Intubated, sedated and mechanically ventilated. HEENT: Atraumatic, PERRLA, Normocephalic Oral: Dry Mucosa, - - Endotracheal and OG tubes in place Neck: Supple, No Nodes, Trachea Midline Lungs: - - Mechanical breath sounds. Otherwise clear across anterior lung cruz. Cardiovascular: Regular rate, Regular Rhythm, Normal S1, Normal S2, No murmurs Abdomen: Bowel Sounds Present, Soft, Non Tender, Obese Extremities: No clubbing, No cyanosis, No edema Skin: No breakdown Musculoskeletal: No Muscle Wasting Lymphatic: No Cervical, Supraclavicular, or Inguinal Adenopathy Neurological: - - No focal neurological deficits. Attempts to move extremities. Will open eyes and follow simple commands. Vital Signs Temp Pulse Resp BP Pulse Ox 97.1 F L 85 14 139/95 H 100 11/03/17 07:00 11/03/17 07:00 11/03/17 07:00 11/03/17 07:00 11/03/17 07:00 Oxygen Delivery Method Mechanical Ventilator Weight: 204 lb 5.896 oz Body Mass Index (BMI) 30.7 Intake and Output for Last 24 Hours 11/01/17 11/02/17 11/03/17 23:59 23:59 23:59 Intake Total 1114 / 1114 Output Total 726 / 726 Balance 388 / 388 Laboratory Tests Past 24 Hrs 11/02/17 11/02/17 11/02/17 22:55 23:15 23:15 Specimen Type Sample Site pH Bicarbonate Actual POC Total CO2 Base Excess O2 Saturation O2 % ABG pCO2 ABG pO2 Chapo Test Respiration Rate O2 Delivery Device Minute Volume Vent Mode Tidal Volume POC PEEP Blood Gas Notified Whom Blood Gas Notified Time Sodium Potassium Chloride Carbon Dioxide Anion Gap BUN Creatinine Estim Creat Clear Calc Est GFR (MDRD) Af Amer Est GFR (MDRD) Non-Af BUN/Creatinine Ratio Glucose Hemoglobin A1c 5.0 Calcium Phosphorus 2.7 Magnesium 2.1 Total Bilirubin 0.80 Direct Bilirubin 0.21 AST 10 L ALT 12 L Alkaline Phosphatase 71 Total Protein 6.8 Albumin 3.2 Globulin 3.6 MRSA (PCR) Negative 11/02/17 11/03/17 23:53 04:15 Specimen Type ART Sample Site L Radial pH 7.39 Bicarbonate Actual 21.0 L POC Total CO2 22 Base Excess -4 L O2 Saturation 99 O2 % 45 ABG pCO2 35.1 ABG pO2 130 H Chapo Test NA Respiration Rate 15 O2 Delivery Device Vent Minute Volume 7.00 Vent Mode A-C Tidal Volume 500 POC PEEP 5 Blood Gas Notified Whom [facility] Blood Gas Notified Time 5 Sodium 142 Potassium 3.3 L Chloride 111 H Carbon Dioxide 23.0 Anion Gap 8 BUN 9 Creatinine 0.82 Estim Creat Clear Calc 97.52 Est GFR (MDRD) Af Amer 103 Est GFR (MDRD) Non-Af 85 BUN/Creatinine Ratio 11.0 Glucose 97 Hemoglobin A1c Calcium 7.9 L Phosphorus Magnesium Total Bilirubin Direct Bilirubin AST ALT Alkaline Phosphatase Total Protein Albumin Globulin MRSA (PCR) POC Glucose 11/03/17 11/03/17 05:32 00:52 POC Glucose 99 122 H Clinical Impression(s) from Imaging Studies KUB X-Ray 11/02/17 20:40 IMPRESSION: NG tube tip in the stomach. Nonspecific bowel gas pattern. Electronically Signed: Pola Mendez DO at 21:10 EDT , Service support , Chest X-Ray 11/02/17 20:43 IMPRESSION: Endotracheal tube tip in good position 3.3 cm above the marianela. NG tube tip in the stomach. No infiltrate. Electronically Signed: Pola Mendez DO at 21:09 EDT , Service support , Assessment/Plan Active and Suspected Problems Suicide attempt (Acute) RECOMMENDATIONS: 1. Place propofol on hold. Once patient is more alert, she will be transitioned to spontaneous mode mechanical ventilation. 2. Continue supplemental IV fluids for now, pending extubation. 3. Potassium repletion 4. Wean FiO2 to maintain oxygen saturations at or above 90%. 5. Discontinue aerosol treatments. 6. Continue Lovenox and Pepcid for ICU prophylaxis 7. Crisis evaluation once medically stabilized. IMPRESSIONS: 1. Acute respiratory failure The patient was intubated in the emergency department due to obtundation and the need for airway protection. She does not have any findings on chest imaging to suggest an underlying pulmonary infectious process. We will continue to monitor her on the ventilator and to her mentation improves. Plan to decrease/hold the patient's propofol. Once awake, she can be transitioned to CPAP mode mechanical ventilation. If the patient's mentation improved significantly and she is able to pass a spontaneous breathing trial, consideration can be given to potential extubation later this morning. Continue gentle supplemental IV fluid hydration for now. Discontinue scheduled aerosol treatments. The patient will require crisis evaluation, once medically stabilized. She is currently pink slipped. 2. Encephalopathy secondary to intentional polypharmacy overdose/suicide attempt Improving. Although the patient is currently sedated, she is able to open her eyes and follow some simple commands. Propofol will be placed on hold for now. Pending improvement in her mentation, a spontaneous breathing trial can be completed. 3. Hypokalemia/acute kidney injury Likely prerenal in etiology. Creatinine has improved with volume expansion. Potassium repletion is underway. 4. Personal history of bipolar disorder/tobacco dependence/obesity/borderline personality disorder Complicates care, management, recovery and prognosis. Nicotine replacement therapy can be offered to the patient while admitted to the hospital. TIME: 40 minutes of critical care time, independent of procedures, was spent addressing the patient's acute respiratory failure, encephalopathy secondary to intentional overdose, hypokalemia, acute kidney injury, review of all data and collaboration with the care team. ([id number]) Code Visit 9xxxx: [id number] Critical care first hour
--- NOTE | 2017-11-03 07:43 | PCM.PN.HOSP ---
Patient Problems: Active and Suspected Problems Suicide attempt (Acute) Subjective: The patient was admitted last night with ingestion of multiple medications of unclear quantity and type after she had an severe depressive episode with suicidal intent and attempt. In ER, patient was found obtunded, lethargic and was immediately intubated mainly for airway protection. Patient also had charcoal gastric decontamination in ER. Currently, urine output is low. Urine output is about 176 mL. her temperature was low 96?F in the ER yesterday but now is 97.1 Fahrenheit and feels warm. Patient opens eyes and follow simple commands Vitals/I&O's: Vital Signs Temp Pulse Resp BP Pulse Ox 97.1 F L 85 14 139/95 H 100 11/03/17 07:00 11/03/17 07:00 11/03/17 07:00 11/03/17 07:00 11/03/17 07:00 Oxygen Delivery Method Mechanical Ventilator Weight: 204 lb 5.896 oz Body Mass Index (BMI) 30.7 Intake and Output for Last 24 Hours 11/01/17 11/02/17 11/03/17 23:59 23:59 23:59 Intake Total 1114 / 1114 Output Total 726 / 726 Balance 388 / 388 General: Confused, Disoriented, Lethargic HEENT: Atraumatic, PERRLA, EOMI, Normocephalic Neck: Supple, No JVD, Negative Carotid Bruits Lungs: Clear to auscultation, No rhonchi, No wheeze, Diminished, - - on 30% Fio2, AC mode Cardiovascular: Regular rate, Normal S1, Normal S2, No murmurs Abdomen: Bowel Sounds Present, Soft, Non Tender, Non-Distended, - - Aldana catheter dark urine Extremities: No edema, Capillary Refill Less than 3 Seconds Skin: No rashes, No breakdown Musculoskeletal: No Tenderness to Palpation of Joints or Extremities Laboratory Results 11/02/17 22:55: MRSA (PCR) Negative 11/02/17 23:15: Phosphorus 2.7, Magnesium 2.1, Total Bilirubin 0.80, Direct Bilirubin 0.21, AST 10 L, ALT 12 L, Alkaline Phosphatase 71, Total Protein 6.8, Albumin 3.2, Globulin 3.6 11/02/17 23:15: Hemoglobin A1c 5.0 11/02/17 23:53: Specimen Type ART, Sample Site L Radial, pH 7.39, Bicarbonate Actual 21.0 L, POC Total CO2 22, Base Excess -4 L, O2 Saturation 99, O2 % 45, ABG pCO2 35.1, ABG pO2 130 H, Chapo Test NA, Respiration Rate 15, O2 Delivery Device Vent, Minute Volume 7.00, Vent Mode A-C, Tidal Volume 500, POC PEEP 5, Blood Gas Notified Whom [facility], Blood Gas Notified Time 5 11/03/17 00:52: POC Glucose 122 H 11/03/17 04:15: Sodium 142, Potassium 3.3 L, Chloride 111 H, Carbon Dioxide 23.0, Anion Gap 8, BUN 9, Creatinine 0.82, Estim Creat Clear Calc 97.52, Est GFR (MDRD) Af Amer 103, Est GFR (MDRD) Non-Af 85, BUN/Creatinine Ratio 11.0, Glucose 97, Calcium 7.9 L 11/03/17 05:32: POC Glucose 99 Current Medications Al Hydroxide/Mg Hydroxide (Mylanta Ii) 30 ml PO Q6H PRN PRN PRN Reason: Gastric burning Albuterol Sulfate (Ventolin Aerosols) 2.5 mg INHALATION Q2H PRN PRN PRN Reason: dyspnea, wheezing Albuterol Sulfate (Ventolin Aerosols) 2.5 mg INHALATION Q4H.RT [facility] Chlorhexidine Gluconate () 15 ml PO BID [facility] Last Admin: 11/02/17 23:16 Dose: 15 ml Chlorhexidine Gluconate () 1 each TOPICAL DAILY [facility] Last Admin: 11/03/17 04:23 Dose: 1 each Docusate Sodium (Colace) 100 mg PO BID [facility] Last Admin: 11/02/17 23:17 Dose: Not Given Enoxaparin Sodium (Lovenox) 40 mg SC DAILY@1000 [facility] Famotidine (Pepcid) 20 mg GT BID [facility] Last Admin: 11/02/17 23:17 Dose: Not Given Propofol (Diprivan) 1,000 mg in 100 mls @ 2.724 mls/hr CONT INF .Q12H LIOR; 5 MCG/KG/MIN PRN Reason: Protocol Last Admin: 11/03/17 04:21 Dose: 2.724 mls/hr Sodium Chloride () 1,000 mls @ 150 mls/hr IV .Q6H40M [facility] Last Admin: 11/03/17 06:42 Dose: 150 mls/hr Fentanyl () 100 mls @ 2.5 mls/hr IV .Q40H [facility]OR PRN Reason: Protocol Magnesium Hydroxide (Milk Of Magnesia) 30 ml PO DAILY PRN PRN PRN Reason: Constipation Ondansetron HCl (Zofran) 4 mg IV Q8H PRN PRN PRN Reason: NAUSEA Promethazine HCl (Phenergan) 12.5 mg IV Q6H PRN PRN PRN Reason: NAUSEA/VOMITING Psyllium Hydrophilic Mucilloid (Metamucil) 1 packet PO DAILY PRN PRN PRN Reason: CONSTIPATION Senna/Docusate Sodium (Senokot-S, Bryanna-Colace) 2 tablet PO BID [facility] Last Admin: 11/02/17 23:17 Dose: Not Given Sodium Chloride () 5 - 30 ml IV UD PRN PRN Reason: SALINE FLUSH Medical Necessity - Tobacco Use Smoking Status: Current every day smoker - Mother notes prior was smoking cigarettes however secondary to financial status now rolling on cigarettes, unclear how many per day. Tobacco Use: Cigarettes Assessment/Plan Active and Suspected Problems Suicide attempt (Acute) This 32-year-old female with history of bipolar disorder, borderline personality disorder on multiple antidepressants/antipsychotic medications including Prozac, trazodone, Lamictal and Xanax was admitted on 11/02/2017 with ingestion of multiple medications of unknown quantity as a result of depression episode with suicidal attempt. 1. Acute severe depression episode with suicidal attempt with polysubstance medication overdose and history of borderline personality disorder:. Patient is still lethargic but opens her eyes. Not on sedation. Laundry Attendant for vent management and extubation when appropriate. IV fluid normal saline to maintain urine output of 0.5 mL to 1 mL/min. then patient is extubated and mentally coherent and communicative, consult mental health/crisis team for further evaluation and placement. 2. Electrolyte abnormality: Hypokalemia, monitor and replace accordingly. 3. Psychiatric disorders: Bipolar disorder, borderline personality disorder 4. Other chronic disorder nicotine dependence, obesity: Home medication reconciliation done. Patient had hyperglycemia, glucose 150 mg per A1c is 5.0 so probably related to medication/drug effect. Diabetes mellitus ruled out. Need further follow-up outpatient for chronic comorbidities 5 DVT Prophylaxis: SCDs, lovenox. Code Visit Inpatient E&M: 11677 Subs Hosp L3
--- NOTE | 2017-11-03 08:00 | PN_ITS ---
Patient Problems: Active and Suspected Problems Suicide attempt (Acute) Subjective: The patient was admitted last night with ingestion of multiple medications of unclear quantity and type after she had an severe depressive episode with suicidal intent and attempt. In ER, patient was found obtunded, lethargic and was immediately intubated mainly for airway protection. Patient also had charcoal gastric decontamination in ER. Currently, urine output is low. Urine output is about 176 mL. her temperature was low 96?F in the ER yesterday but now is 97.1 Fahrenheit and feels warm. Patient opens eyes and follow simple commands Vitals/I&O's: Vital Signs Temp Pulse Resp BP Pulse Ox 97.1 F L 85 14 139/95 H 100 11/03/17 07:00 11/03/17 07:00 11/03/17 07:00 11/03/17 07:00 11/03/17 07:00 Oxygen Delivery Method Mechanical Ventilator Weight: 204 lb 5.896 oz Body Mass Index (BMI) 30.7 Intake and Output for Last 24 Hours 11/01/17 11/02/17 11/03/17 23:59 23:59 23:59 Intake Total 1114 / 1114 Output Total 726 / 726 Balance 388 / 388 General: Confused, Disoriented, Lethargic HEENT: Atraumatic, PERRLA, EOMI, Normocephalic Neck: Supple, No JVD, Negative Carotid Bruits Lungs: Clear to auscultation, No rhonchi, No wheeze, Diminished, - - on 30% Fio2 , AC mode Cardiovascular: Regular rate, Normal S1, Normal S2, No murmurs Abdomen: Bowel Sounds Present, Soft, Non Tender, Non-Distended, - - Aldana catheter dark urine Extremities: No edema, Capillary Refill Less than 3 Seconds Skin: No rashes, No breakdown Musculoskeletal: No Tenderness to Palpation of Joints or Extremities Laboratory Results 11/02/17 22:55: MRSA (PCR) Negative 11/02/17 23:15: Phosphorus 2.7, Magnesium 2.1, Total Bilirubin 0.80, Direct Bilirubin 0.21, AST 10 L, ALT 12 L, Alkaline Phosphatase 71, Total Protein 6.8, Albumin 3.2, Globulin 3.6 11/02/17 23:15: Hemoglobin A1c 5.0 11/02/17 23:53: Specimen Type ART, Sample Site L Radial, pH 7.39, Bicarbonate Actual 21.0 L, POC Total CO2 22, Base Excess -4 L, O2 Saturation 99, O2 % 45, ABG pCO2 35.1, ABG pO2 130 H, Chapo Test NA, Respiration Rate 15, O2 Delivery Device Vent, Minute Volume 7.00, Vent Mode A-C, Tidal Volume 500, POC PEEP 5, Blood Gas Notified Whom LEBRON VO, Blood Gas Notified Time 5 11/03/17 00:52: POC Glucose 122 H 11/03/17 04:15: Sodium 142, Potassium 3.3 L, Chloride 111 H, Carbon Dioxide 23.0 , Anion Gap 8, BUN 9, Creatinine 0.82, Estim Creat Clear Calc 97.52, Est GFR ( MDRD) Af Amer 103, Est GFR (MDRD) Non-Af 85, BUN/Creatinine Ratio 11.0, Glucose 97, Calcium 7.9 L 11/03/17 05:32: POC Glucose 99 Current Medications Al Hydroxide/Mg Hydroxide (Mylanta Ii) 30 ml PO Q6H PRN PRN PRN Reason: Gastric burning Albuterol Sulfate (Ventolin Aerosols) 2.5 mg INHALATION Q2H PRN PRN PRN Reason: dyspnea, wheezing Albuterol Sulfate (Ventolin Aerosols) 2.5 mg INHALATION Q4H.RT [facility] Chlorhexidine Gluconate () 15 ml PO BID [facility] Last Admin: 11/02/17 23:16 Dose: 15 ml Chlorhexidine Gluconate () 1 each TOPICAL DAILY [facility] Last Admin: 11/03/17 04:23 Dose: 1 each Docusate Sodium (Colace) 100 mg PO BID [facility] Last Admin: 11/02/17 23:17 Dose: Not Given Enoxaparin Sodium (Lovenox) 40 mg SC DAILY@1000 [facility] Famotidine (Pepcid) 20 mg GT BID [facility] Last Admin: 11/02/17 23:17 Dose: Not Given Propofol (Diprivan) 1,000 mg in 100 mls @ 2.724 mls/hr CONT INF .Q12H [facility]; 5 MCG/KG/MIN PRN Reason: Protocol Last Admin: 11/03/17 04:21 Dose: 2.724 mls/hr Sodium Chloride () 1,000 mls @ 150 mls/hr IV .Q6H40M [facility] Last Admin: 11/03/17 06:42 Dose: 150 mls/hr Fentanyl () 100 mls @ 2.5 mls/hr IV .Q40H [facility] PRN Reason: Protocol Magnesium Hydroxide (Milk Of Magnesia) 30 ml PO DAILY PRN PRN PRN Reason: Constipation Ondansetron HCl (Zofran) 4 mg IV Q8H PRN PRN PRN Reason: NAUSEA Promethazine HCl (Phenergan) 12.5 mg IV Q6H PRN PRN PRN Reason: NAUSEA/VOMITING Psyllium Hydrophilic Mucilloid (Metamucil) 1 packet PO DAILY PRN PRN PRN Reason: CONSTIPATION Senna/Docusate Sodium (Senokot-S, Bryanna-Colace) 2 tablet PO BID [facility] Last Admin: 11/02/17 23:17 Dose: Not Given Sodium Chloride () 5 - 30 ml IV UD PRN PRN Reason: SALINE FLUSH Medical Necessity - Tobacco Use Smoking Status: Current every day smoker - Mother notes prior was smoking cigarettes however secondary to financial status now rolling on cigarettes, unclear how many per day. Tobacco Use: Cigarettes Assessment/Plan Active and Suspected Problems Suicide attempt (Acute) This 32-year-old female with history of bipolar disorder, borderline personality disorder on multiple antidepressants/antipsychotic medications including Prozac, trazodone, Lamictal and Xanax was admitted on 11/02/2017 with ingestion of multiple medications of unknown quantity as a result of depression episode with suicidal attempt. 1. Acute severe depression episode with suicidal attempt with polysubstance medication overdose and history of borderline personality disorder:. Patient is still lethargic but opens her eyes. Not on sedation. 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 IV fluid normal saline to maintain urine output of 0.5 mL to 1 mL/min. then patient is extubated and mentally coherent and communicative, consult mental health/crisis team for further evaluation and placement. 2. Electrolyte abnormality: Hypokalemia, monitor and replace accordingly. 3. Psychiatric disorders: Bipolar disorder, borderline personality disorder 4. Other chronic disorder nicotine dependence, obesity: Home medication reconciliation done. Patient had hyperglycemia, glucose 150 mg per A1c is 5.0 so probably related to medication/drug effect. Diabetes mellitus ruled out. Need further follow-up outpatient for chronic comorbidities 5 DVT Prophylaxis: SCDs, lovenox. Code Visit Inpatient E&M: 67437 Subs Hosp L3
[2017-11-03] MEDS: Senna/Docusate Sodium 1 Tablet 2 TABLET GT (09:35)
[2017-11-03] MEDS: Famotidine 20 MG Tablet GT (09:35)
[2017-11-03] MEDS: Enoxaparin 40 MG/0.4 ML Syringe SC (09:35)
[2017-11-03] MEDS: Chlorhexidine 15 ML PO (09:36)
--- NOTE | 2017-11-03 10:52 | CASEMGMT ---
SW participated in ICU rounds this morning, pt remains on a ventilator at this time. Crisis will be called when pt is medically stable. MONIKA Mcfadden, SALES ATTENDANT
--- NOTE | 2017-11-03 11:27 | CPS ---
pt still too lethargic at this time. apnea noted.
[2017-11-03] MEDS: Famotidine 20 MG Tablet PO (20:56)
[2017-11-03] MEDS: Senna/Docusate Sodium 1 Tablet 2 TABLET PO (20:56)
[2017-11-04] VITALS (13 sets, daily range): BP systolic 94–120; BP diastolic 58–87; PULSE 71–85; RESP 14–26; TEMP 36.6–37.2; O2SAT 94–98
[2017-11-04 04:32] LABS: Anion Gap 9 (5-15); BUN 4 mg/dL (7-18); BUN/Creat Ratio 6.2 RATIO (10-20); Calcium,Total 7.8 mg/dL (8.5-10.1); Chloride 116 mmol/L (98-107); Creatinine, Serum 0.64 mg/dL (0.55-1.02); EST Glomerular Filtration Rate 113 mL/min (>60); Est Glom Filt Rate - Afr Amer 137 mL/min (>60); Estimated Creatinine Clearance 124.94 ml/min; Glucose 89 mg/dL (74-106); Potassium 3.6 mmol/L (3.5-5.1); Sodium Level 146 mmol/L (136-145)
[2017-11-04] MEDS: 0.9% NaCl Peripheral Flush Adult/Peds IV (05:47)
--- NOTE | 2017-11-04 06:42 | PCM.PN.INT ---
Subjective: The patient was seen and examined at the bedside this morning. Events from the last 24 hours have been reviewed. The patient is currently afebrile, hemodynamically stable and maintaining appropriate oxygen saturations on room air. The patient has done well from a respiratory perspective, following extubation yesterday. The patient denies any shortness of breath or cough this morning. She does report the presence of a sore throat. She has been tolerant of p.o. intake, nonetheless. Objective: The patient's most recent lab work, culture data and imaging studies have all been personally reviewed. Sodium is up to 146 this morning with a chloride of 116. Potassium is increased to 3.6. General: Alert, Cooperative, No apparent distress HEENT: Atraumatic, PERRLA, Normocephalic Oral: Moist Mucosa, No Gingival or Mucosal Lesions/ Ulcerations Neck: Supple, No Nodes, Trachea Midline Lungs: Normal air movement, No rhonchi, No wheeze, No rales Cardiovascular: Regular rate, Regular Rhythm, Normal S1, Normal S2, No murmurs Abdomen: Bowel Sounds Present, Soft, Non Tender, Obese Extremities: No clubbing, No cyanosis, No edema Skin: No breakdown Musculoskeletal: No Tenderness to Palpation of Joints or Extremities Lymphatic: No Cervical, Supraclavicular, or Inguinal Adenopathy Neurological: Neuro grossly intact Psych/Mental Status: Flat Affect Vital Signs Temp Pulse Resp BP Pulse Ox 98.1 F 75 15 109/67 98 11/04/17 06:00 11/04/17 06:00 11/04/17 06:00 11/04/17 06:00 11/04/17 06:00 Oxygen Flow Rate (L/min) 2 Oxygen Delivery Method Room Air Weight: 209 lb 7.026 oz Body Mass Index (BMI) 30.7 Intake and Output for Last 24 Hours 11/02/17 11/03/17 11/04/17 23:59 23:59 23:59 Intake Total 4434 / 4434 715 / 715 Output Total 1501 / 1501 1600 / 1600 Balance 2933 / 2933 -885 / -885 Labs (Last 48 Hours) 11/02/17 11/02/17 11/02/17 22:55 23:15 23:15 Specimen Type Sample Site pH Bicarbonate Actual POC Total CO2 Base Excess O2 Saturation O2 % ABG pCO2 ABG pO2 Chapo Test Respiration Rate O2 Delivery Device Minute Volume Vent Mode Tidal Volume POC PEEP Blood Gas Notified Whom Blood Gas Notified Time Sodium Potassium Chloride Carbon Dioxide Anion Gap BUN Creatinine Estim Creat Clear Calc Est GFR (MDRD) Af Amer Est GFR (MDRD) Non-Af BUN/Creatinine Ratio Glucose Hemoglobin A1c 5.0 Calcium Phosphorus 2.7 Magnesium 2.1 Total Bilirubin 0.80 Direct Bilirubin 0.21 AST 10 L ALT 12 L Alkaline Phosphatase 71 Total Protein 6.8 Albumin 3.2 Globulin 3.6 MRSA (PCR) Negative POC Glucose 11/02/17 11/03/17 11/03/17 23:53 00:52 04:15 Specimen Type ART Sample Site L Radial pH 7.39 Bicarbonate Actual 21.0 L POC Total CO2 22 Base Excess -4 L O2 Saturation 99 O2 % 45 ABG pCO2 35.1 ABG pO2 130 H Chapo Test NA Respiration Rate 15 O2 Delivery Device Vent Minute Volume 7.00 Vent Mode A-C Tidal Volume 500 POC PEEP 5 Blood Gas Notified Whom [facility] Blood Gas Notified Time 5 Sodium 142 Potassium 3.3 L Chloride 111 H Carbon Dioxide 23.0 Anion Gap 8 BUN 9 Creatinine 0.82 Estim Creat Clear Calc 97.52 Est GFR (MDRD) Af Amer 103 Est GFR (MDRD) Non-Af 85 BUN/Creatinine Ratio 11.0 Glucose 97 Hemoglobin A1c Calcium 7.9 L Phosphorus Magnesium Total Bilirubin Direct Bilirubin AST ALT Alkaline Phosphatase Total Protein Albumin Globulin MRSA (PCR) POC Glucose 122 H 11/03/17 11/04/17 05:32 04:15 Specimen Type Sample Site pH Bicarbonate Actual POC Total CO2 Base Excess O2 Saturation O2 % ABG pCO2 ABG pO2 Chapo Test Respiration Rate O2 Delivery Device Minute Volume Vent Mode Tidal Volume POC PEEP Blood Gas Notified Whom Blood Gas Notified Time Sodium 146 H Potassium 3.6 Chloride 116 H Carbon Dioxide 21.0 Anion Gap 9 BUN 4 L Creatinine 0.64 Estim Creat Clear Calc 124.94 Est GFR (MDRD) Af Amer 137 Est GFR (MDRD) Non-Af 113 BUN/Creatinine Ratio 6.2 L Glucose 89 Hemoglobin A1c Calcium 7.8 L Phosphorus Magnesium Total Bilirubin Direct Bilirubin AST ALT Alkaline Phosphatase Total Protein Albumin Globulin MRSA (PCR) POC Glucose 99 Clinical Impression(s) from Imaging Studies KUB X-Ray 11/02/17 20:40 IMPRESSION: NG tube tip in the stomach. Nonspecific bowel gas pattern. Electronically Signed: Pola Mendez DO at 21:10 EDT , Service support , Chest X-Ray 11/02/17 20:43 IMPRESSION: Endotracheal tube tip in good position 3.3 cm above the marianela. NG tube tip in the stomach. No infiltrate. Electronically Signed: Pola Mendez DO at 21:09 EDT , Service support , Chest X-Ray 11/03/17 05:55 IMPRESSION: Endotracheal tube in good position. No pulmonary edema, congestive heart failure or confluent pneumonia. There is no significant interval change. Electronically Signed: Holly Silva MD at 7:27 EDT , Service support , Medical Necessity - Tobacco Use Smoking Status: Current every day smoker Tobacco Use: Cigarettes Assessment/Plan Active and Suspected Problems Suicide attempt (Acute) RECOMMENDATIONS: 1. Discontinue supplemental IV fluids 2. Crisis evaluation today 3. Discontinue aerosol treatments. 4. Continue Lovenox for DVT prophylaxis. Pepcid can be discontinued 5. Encourage incentive spirometer use while in bed and mobilize patient as tolerated. IMPRESSIONS: 1. Acute respiratory failure Resolved at this time. The patient was intubated in the emergency department due to obtundation and the need for airway protection. She did not have any findings on chest imaging to suggest an underlying pulmonary infectious process. She has done well from a respiratory perspective following extubation on November 03. Supplemental IV fluids can be discontinued. Aerosol treatments can be discontinued. Continue Lovenox for DVT prophylaxis. Discontinue Pepcid. The patient is medically stable for crisis evaluation today. She is currently pink slipped. 2. Encephalopathy secondary to intentional polypharmacy overdose/suicide attempt Resolved. Secondary to polypharmacy overdose. Crisis evaluation today. 3. Hypokalemia/acute kidney injury Resolved. Likely prerenal in etiology. Creatinine has improved with volume expansion. Potassium is now within normal limits. 4. Personal history of bipolar disorder/tobacco dependence/obesity/borderline personality disorder Complicates care, management, recovery and prognosis. Nicotine replacement therapy can be offered to the patient while admitted to the hospital. This note was generated with [employer], Part of [employer] dictation software. It may contain incorrect words, spelling, and punctuation that were not noted in checking the note before signing. DISPOSITION: The patient is medically stable for transfer out of the intensive care unit. Additionally, she is stable for crisis evaluation today. Given the lack of ongoing ICU needs, will sign off. Please call with any additional questions. Code Visit Inpatient E&M: 11950 Subs Hosp L3
--- NOTE | 2017-11-04 06:49 | PN_ITS ---
Subjective: The patient was seen and examined at the bedside this morning. Events from the last 24 hours have been reviewed. The patient is currently afebrile, hemodynamically stable and maintaining appropriate oxygen saturations on room air. The patient has done well from a respiratory perspective, following extubation yesterday. The patient denies any shortness of breath or cough this morning. She does report the presence of a sore throat. She has been tolerant of p.o. intake, nonetheless. Objective: The patient's most recent lab work, culture data and imaging studies have all been personally reviewed. Sodium is up to 146 this morning with a chloride of 116. Potassium is increased to 3.6. General: Alert, Cooperative, No apparent distress HEENT: Atraumatic, PERRLA, Normocephalic Oral: Moist Mucosa, No Gingival or Mucosal Lesions/ Ulcerations Neck: Supple, No Nodes, Trachea Midline Lungs: Normal air movement, No rhonchi, No wheeze, No rales Cardiovascular: Regular rate, Regular Rhythm, Normal S1, Normal S2, No murmurs Abdomen: Bowel Sounds Present, Soft, Non Tender, Obese Extremities: No clubbing, No cyanosis, No edema Skin: No breakdown Musculoskeletal: No Tenderness to Palpation of Joints or Extremities Lymphatic: No Cervical, Supraclavicular, or Inguinal Adenopathy Neurological: Neuro grossly intact Psych/Mental Status: Flat Affect Vital Signs Temp Pulse Resp BP Pulse Ox 98.1 F 75 15 109/67 98 11/04/17 06:00 11/04/17 06:00 11/04/17 06:00 11/04/17 06:00 11/04/17 06:00 Oxygen Flow Rate (L/min) 2 Oxygen Delivery Method Room Air Weight: 209 lb 7.026 oz Body Mass Index (BMI) 30.7 Intake and Output for Last 24 Hours 11/02/17 11/03/17 11/04/17 23:59 23:59 23:59 Intake Total 4434 / 4434 715 / 715 Output Total 1501 / 1501 1600 / 1600 Balance 2933 / 2933 -885 / -885 Labs (Last 48 Hours) 11/02/17 11/02/17 11/02/17 22:55 23:15 23:15 Specimen Type Sample Site pH Bicarbonate Actual POC Total CO2 Base Excess O2 Saturation O2 % ABG pCO2 ABG pO2 Chapo Test Respiration Rate O2 Delivery Device Minute Volume Vent Mode Tidal Volume POC PEEP Blood Gas Notified Whom Blood Gas Notified Time Sodium Potassium Chloride Carbon Dioxide Anion Gap BUN Creatinine Estim Creat Clear Calc Est GFR (MDRD) Af Amer Est GFR (MDRD) Non-Af BUN/Creatinine Ratio Glucose Hemoglobin A1c 5.0 Calcium Phosphorus 2.7 Magnesium 2.1 Total Bilirubin 0.80 Direct Bilirubin 0.21 AST 10 L ALT 12 L Alkaline Phosphatase 71 Total Protein 6.8 Albumin 3.2 Globulin 3.6 MRSA (PCR) Negative POC Glucose 11/02/17 11/03/17 11/03/17 23:53 00:52 04:15 Specimen Type ART Sample Site L Radial pH 7.39 Bicarbonate Actual 21.0 L POC Total CO2 22 Base Excess -4 L O2 Saturation 99 O2 % 45 ABG pCO2 35.1 ABG pO2 130 H Chapo Test NA Respiration Rate 15 O2 Delivery Device Vent Minute Volume 7.00 Vent Mode A-C Tidal Volume 500 POC PEEP 5 Blood Gas Notified Whom [facility] Blood Gas Notified Time 5 Sodium 142 Potassium 3.3 L Chloride 111 H Carbon Dioxide 23.0 Anion Gap 8 BUN 9 Creatinine 0.82 Estim Creat Clear Calc 97.52 Est GFR (MDRD) Af Amer 103 Est GFR (MDRD) Non-Af 85 BUN/Creatinine Ratio 11.0 Glucose 97 Hemoglobin A1c Calcium 7.9 L Phosphorus Magnesium Total Bilirubin Direct Bilirubin AST ALT Alkaline Phosphatase Total Protein Albumin Globulin MRSA (PCR) POC Glucose 122 H 11/03/17 11/04/17 05:32 04:15 Specimen Type Sample Site pH Bicarbonate Actual POC Total CO2 Base Excess O2 Saturation O2 % ABG pCO2 ABG pO2 Chapo Test Respiration Rate O2 Delivery Device Minute Volume Vent Mode Tidal Volume POC PEEP Blood Gas Notified Whom Blood Gas Notified Time Sodium 146 H Potassium 3.6 Chloride 116 H Carbon Dioxide 21.0 Anion Gap 9 BUN 4 L Creatinine 0.64 Estim Creat Clear Calc 124.94 Est GFR (MDRD) Af Amer 137 Est GFR (MDRD) Non-Af 113 BUN/Creatinine Ratio 6.2 L Glucose 89 Hemoglobin A1c Calcium 7.8 L Phosphorus Magnesium Total Bilirubin Direct Bilirubin AST ALT Alkaline Phosphatase Total Protein Albumin Globulin MRSA (PCR) POC Glucose 99 Clinical Impression(s) from Imaging Studies KUB X-Ray 11/02/17 20:40 IMPRESSION: NG tube tip in the stomach. Nonspecific bowel gas pattern. Electronically Signed: Pola Mendez DO at 21:10 EDT , Service support , Chest X-Ray 11/02/17 20:43 IMPRESSION: Endotracheal tube tip in good position 3.3 cm above the marianela. NG tube tip in the stomach. No infiltrate. Electronically Signed: Pola Mendez DO at 21:09 EDT , Service support , Chest X-Ray 11/03/17 05:55 IMPRESSION: Endotracheal tube in good position. No pulmonary edema, congestive heart failure or confluent pneumonia. There is no significant interval change. Electronically Signed: Holly Silva MD at 7:27 EDT , Service support , Medical Necessity - Tobacco Use Smoking Status: Current every day smoker Tobacco Use: Cigarettes Assessment/Plan Active and Suspected Problems Suicide attempt (Acute) RECOMMENDATIONS: 1. Discontinue supplemental IV fluids 2. Crisis evaluation today 3. Discontinue aerosol treatments. 4. Continue Lovenox for DVT prophylaxis. Pepcid can be discontinued 5. Encourage incentive spirometer use while in bed and mobilize patient as tolerated. IMPRESSIONS: 1. Acute respiratory failure Resolved at this time. The patient was intubated in the emergency department due to obtundation and the need for airway protection. She did not have any findings on chest imaging to suggest an underlying pulmonary infectious process. She has done well from a respiratory perspective following extubation on November 03. Supplemental IV fluids can be discontinued. Aerosol treatments can be discontinued. Continue Lovenox for DVT prophylaxis. Discontinue Pepcid. The patient is medically stable for crisis evaluation today. She is currently pink slipped. 2. Encephalopathy secondary to intentional polypharmacy overdose/suicide attempt Resolved. Secondary to polypharmacy overdose. Crisis evaluation today. 3. Hypokalemia/acute kidney injury Resolved. Likely prerenal in etiology. Creatinine has improved with volume expansion. Potassium is now within normal limits. 4. Personal history of bipolar disorder/tobacco dependence/obesity/borderline personality disorder Complicates care, management, recovery and prognosis. Nicotine replacement therapy can be offered to the patient while admitted to the hospital. This note was generated with [employer] dictation software. It may contain incorrect words, spelling, and punctuation that were not noted in checking the note before signing. DISPOSITION: The patient is medically stable for transfer out of the intensive care unit. Additionally, she is stable for crisis evaluation today. Given the lack of ongoing ICU needs, will sign off. Please call with any additional questions. Code Visit Inpatient E&M: [id number] [facility] Hosp L3
--- NOTE | 2017-11-04 08:41 | PCM.PN.HOSP ---
Patient Problems: Active and Suspected Problems Suicide attempt (Acute) Subjective: Seen and examined today. Patient was extubated yesterday and did fairly well last night. Complaint of mild sore throat. Patient still looks mildly depressed but denies any ongoing hallucination, delusion or suicidal ideations/thoughts. She has that she took multiple medications including trazodone, Lamictal, Xanax, Topamax and Prozac with suicidal intent Vitals/I&O's: Vital Signs Temp Pulse Resp BP Pulse Ox 98.2 F 85 14 108/87 H 97 11/04/17 08:00 11/04/17 08:00 11/04/17 08:00 11/04/17 08:00 11/04/17 08:00 Oxygen Flow Rate (L/min) 2 Oxygen Delivery Method Room Air Weight: 209 lb 7.026 oz Body Mass Index (BMI) 30.7 Intake and Output for Last 24 Hours 11/02/17 11/03/17 11/04/17 23:59 23:59 23:59 Intake Total 4434 / 4434 715 / 715 Output Total 1501 / 1501 1600 / 1600 Balance 2933 / 2933 -885 / -885 General: Alert, Oriented x3, Cooperative HEENT: Atraumatic, PERRLA, EOMI, Normocephalic Neck: Supple, No JVD, Negative Carotid Bruits Lungs: Clear to auscultation, Normal air movement Cardiovascular: Regular rate, Normal S1, Normal S2, No murmurs Abdomen: Bowel Sounds Present, Soft, Non Tender, Non-Distended Extremities: No edema, Capillary Refill Less than 3 Seconds Skin: No rashes, No breakdown Musculoskeletal: No Tenderness to Palpation of Joints or Extremities Neurological: Cranial nerves II-XII grossly intact Psych/Mental Status: Flat Affect, Depressed Laboratory Results 11/04/17 04:15: Sodium 146 H, Potassium 3.6, Chloride 116 H, Carbon Dioxide 21.0, Anion Gap 9, BUN 4 L, Creatinine 0.64, Estim Creat Clear Calc 124.94, Est GFR (MDRD) Af Amer 137, Est GFR (MDRD) Non-Af 113, BUN/Creatinine Ratio 6.2 L, Glucose 89, Calcium 7.8 L Current Medications Chlorhexidine Gluconate () 1 each TOPICAL DAILY LIOR Last Admin: 11/03/17 04:23 Dose: 1 each Enoxaparin Sodium (Lovenox) 40 mg SC DAILY@1000 LIOR Last Admin: 11/03/17 09:35 Dose: 40 mg Ondansetron HCl (Zofran) 4 mg IV Q8H PRN PRN PRN Reason: NAUSEA Senna/Docusate Sodium (Senokot-S, Bryanna-Colace) 2 tablet PO BID LIOR Last Admin: 11/03/17 20:56 Dose: 2 tablet Sodium Chloride () 5 - 30 ml IV UD PRN PRN Reason: SALINE FLUSH Last Admin: 11/04/17 05:47 Dose: 10 ml Medical Necessity - Tobacco Use Smoking Status: Current every day smoker Tobacco Use: Cigarettes Assessment/Plan Active and Suspected Problems Suicide attempt (Acute) This 32-year-old female with history of bipolar disorder, borderline personality disorder on multiple antidepressants/antipsychotic medications including Prozac, trazodone, Lamictal and Xanax was admitted on 11/02/2017 with ingestion of multiple medications of unknown quantity as a result of depression episode with suicidal attempt. 1. Acute severe depression episode with suicidal attempt with polysubstance medication overdose and history of borderline personality disorder:. The patient was extubated yesterday. The patient was intubated in the ER for airway protection. Peoplesoft Developer Dr. Pardo note reviewed and appreciated. Patient is medically stable to be seen by crisis team evaluation and placement. 2. Electrolyte abnormality: Hypokalemia, monitor and replace accordingly. Resolved 3. Psychiatric disorders: Bipolar disorder, borderline personality disorder 4. Other chronic disorder nicotine dependence, obesity: Home medication reconciliation done. Patient had hyperglycemia, glucose 150 mg per A1c is 5.0 so probably related to medication/drug effect. Diabetes mellitus ruled out. Need further follow-up outpatient for chronic comorbidities 5 DVT Prophylaxis: SCDs, lovenox. Laboratory Results 11/04/17 04:15: Sodium 146 H, Potassium 3.6, Chloride 116 H, Carbon Dioxide 21.0, Anion Gap 9, BUN 4 L, Creatinine 0.64, Estim Creat Clear Calc 124.94, Est GFR (MDRD) Af Amer 137, Est GFR (MDRD) Non-Af 113, BUN/Creatinine Ratio 6.2 L, Glucose 89, Calcium 7.8 L Clinical Impression(s) from Imaging Studies KUB X-Ray 11/02/17 20:40 IMPRESSION: NG tube tip in the stomach. Nonspecific bowel gas pattern. Electronically Signed: Pola Mendez DO at 21:10 EDT , Service support , Chest X-Ray 11/02/17 20:43 IMPRESSION: Endotracheal tube tip in good position 3.3 cm above the marianela. NG tube tip in the stomach. No infiltrate. Electronically Signed: Pola Mendez DO at 21:09 EDT , Service support , Chest X-Ray 11/03/17 05:55 IMPRESSION: Endotracheal tube in good position. No pulmonary edema, congestive heart failure or confluent pneumonia. There is no significant interval change. Code Visit Inpatient E&M: [id number] [facility] L3
--- NOTE | 2017-11-04 08:48 | PN_ITS ---
Patient Problems: Active and Suspected Problems Suicide attempt (Acute) Subjective: Seen and examined today. Patient was extubated yesterday and did fairly well last night. Complaint of mild sore throat. Patient still looks mildly depressed but denies any ongoing hallucination, delusion or suicidal ideations/thoughts. She has that she took multiple medications including trazodone, Lamictal, Xanax, Topamax and Prozac with suicidal intent Vitals/I&O's: Vital Signs Temp Pulse Resp BP Pulse Ox 98.2 F 85 14 108/87 H 97 11/04/17 08:00 11/04/17 08:00 11/04/17 08:00 11/04/17 08:00 11/04/17 08:00 Oxygen Flow Rate (L/min) 2 Oxygen Delivery Method Room Air Weight: 209 lb 7.026 oz Body Mass Index (BMI) 30.7 Intake and Output for Last 24 Hours 11/02/17 11/03/17 11/04/17 23:59 23:59 23:59 Intake Total 4434 / 4434 715 / 715 Output Total 1501 / 1501 1600 / 1600 Balance 2933 / 2933 -885 / -885 General: Alert, Oriented x3, Cooperative HEENT: Atraumatic, PERRLA, EOMI, Normocephalic Neck: Supple, No JVD, Negative Carotid Bruits Lungs: Clear to auscultation, Normal air movement Cardiovascular: Regular rate, Normal S1, Normal S2, No murmurs Abdomen: Bowel Sounds Present, Soft, Non Tender, Non-Distended Extremities: No edema, Capillary Refill Less than 3 Seconds Skin: No rashes, No breakdown Musculoskeletal: No Tenderness to Palpation of Joints or Extremities Neurological: Cranial nerves II-XII grossly intact Psych/Mental Status: Flat Affect, Depressed Laboratory Results 11/04/17 04:15: Sodium 146 H, Potassium 3.6, Chloride 116 H, Carbon Dioxide 21.0 , Anion Gap 9, BUN 4 L, Creatinine 0.64, Estim Creat Clear Calc 124.94, Est GFR (MDRD) Af Amer 137, Est GFR (MDRD) Non-Af 113, BUN/Creatinine Ratio 6.2 L, Glucose 89, Calcium 7.8 L Current Medications Chlorhexidine Gluconate () 1 each TOPICAL DAILY LIOR Last Admin: 11/03/17 04:23 Dose: 1 each Enoxaparin Sodium (Lovenox) 40 mg SC DAILY@1000 LIOR Last Admin: 11/03/17 09:35 Dose: 40 mg Ondansetron HCl (Zofran) 4 mg IV Q8H PRN PRN PRN Reason: NAUSEA Senna/Docusate Sodium (Senokot-S, Bryanna-Colace) 2 tablet PO BID LIOR Last Admin: 11/03/17 20:56 Dose: 2 tablet Sodium Chloride () 5 - 30 ml IV UD PRN PRN Reason: SALINE FLUSH Last Admin: 11/04/17 05:47 Dose: 10 ml Medical Necessity - Tobacco Use Smoking Status: Current every day smoker Tobacco Use: Cigarettes Assessment/Plan Active and Suspected Problems Suicide attempt (Acute) This 32-year-old female with history of bipolar disorder, borderline personality disorder on multiple antidepressants/antipsychotic medications including Prozac, trazodone, Lamictal and Xanax was admitted on 11/02/2017 with ingestion of multiple medications of unknown quantity as a result of depression episode with suicidal attempt. 1. Acute severe depression episode with suicidal attempt with polysubstance medication overdose and history of borderline personality disorder:. The patient was extubated yesterday. The patient was intubated in the ER for airway protection. Brokerage Branch Manager Dr. Pardo note reviewed and appreciated. Patient is medically stable to be seen by crisis team evaluation and placement. 2. Electrolyte abnormality: Hypokalemia, monitor and replace accordingly. Resolved 3. Psychiatric disorders: Bipolar disorder, borderline personality disorder 4. Other chronic disorder nicotine dependence, obesity: Home medication reconciliation done. Patient had hyperglycemia, glucose 150 mg per A1c is 5.0 so probably related to medication/drug effect. Diabetes mellitus ruled out. Need further follow-up outpatient for chronic comorbidities 5 DVT Prophylaxis: SCDs, lovenox. Laboratory Results 11/04/17 04:15: Sodium 146 H, Potassium 3.6, Chloride 116 H, Carbon Dioxide 21.0 , Anion Gap 9, BUN 4 L, Creatinine 0.64, Estim Creat Clear Calc 124.94, Est GFR (MDRD) Af Amer 137, Est GFR (MDRD) Non-Af 113, BUN/Creatinine Ratio 6.2 L, Glucose 89, Calcium 7.8 L Clinical Impression(s) from Imaging Studies KUB X-Ray 11/02/17 20:40 IMPRESSION: NG tube tip in the stomach. Nonspecific bowel gas pattern. Electronically Signed: Pola Mendez DO at 21:10 EDT , Service support , Chest X-Ray 11/02/17 20:43 IMPRESSION: Endotracheal tube tip in good position 3.3 cm above the marianela. NG tube tip in the stomach. No infiltrate. Electronically Signed: Pola Mendez DO at 21:09 EDT , Service support , Chest X-Ray 11/03/17 05:55 IMPRESSION: Endotracheal tube in good position. No pulmonary edema, congestive heart failure or confluent pneumonia. There is no significant interval change. Code Visit Inpatient E&M: [id number] [facility] Hosp L3
--- NOTE | 2017-11-04 09:11 | CASEMGMT ---
SW spoke w/RN, she states pt is medically stable and crisis was already called this morning. SW remains available for any assist or support. MONIKA Mcfadden, [employer]
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
[2017-11-04] MEDS: ALPRAZolam 0.5 MG Tablet 1 MG PO (16:44)
--- NOTE | 2017-11-05 07:41 | DS.PCM_ITS ---
Discharge Date and Diagnosis Date of Admission: 11/02/17 Date of Discharge: 11/04/17 - Primary Discharge Diagnosis Acute severe depression episode with suicidal attempt with polysubstance medication overdose and history of borderline personality disorder: 2. Acute hypokalemia, Resolved 3. Psychiatric disorders: Bipolar disorder, borderline personality disorder - Secondary Discharge Diagnosis Chronic Problems Bipolar disorder (Chronic) Obesity (Chronic) Borderline personality disorder (Chronic) Tobacco use (Chronic) Hospital Course and Treatment Summary of Care Provided: [] This 32-year-old female with history of bipolar disorder, borderline personality disorder on multiple antidepressants/antipsychotic medications including Prozac, trazodone, Lamictal and Xanax was admitted on 11/02/2017 with ingestion of multiple medications of unknown quantity as a result of depression episode with suicidal attempt. 1. Acute severe depression episode with suicidal attempt with polysubstance medication overdose and history of borderline personality disorder:. The patient was extubated yesterday. The patient was intubated in the ER for airway protection. Trouble Lineman Dr. Pardo note reviewed and appreciated. The patient was medically stable to be seen by crisis team evaluation and placement. Crisis team saw the patient and agreed that she needs inpatient psych facility for further treatment. Patient was discharged to acute inpatient psych facility. 2. Electrolyte abnormality: Hypokalemia, monitor and replace accordingly. Resolved 3. Psychiatric disorders: Bipolar disorder, borderline personality disorder 4. Other chronic disorder nicotine dependence, obesity: Home medication reconciliation done. Patient had hyperglycemia, glucose 150 mg per A1c is 5.0 so probably related to medication/drug effect. Diabetes mellitus ruled out. Need further follow-up outpatient for chronic comorbidities 5 DVT Prophylaxis: SCDs, lovenox. Home Medications: Medications to take at Discharge ALPRAZolam [Xanax] 1 mg PO BID PRN 12/25/13 Fluoxetine [Prozac] 40 mg PO DAILY 12/25/13 Lamotrigine [Lamictal] 400 mg PO DAILY 12/25/13 Trazodone HCl 300 mg PO QHS 07/31/15 Omeprazole 40 mg PO DAILY 08/27/17 Divalproex Sodium [Depakote] 500 mg PO QHS 11/04/17 Haloperidol [Haldol] 5 mg PO QHS PRN 11/04/17 Topiramate [Topamax] 25 mg PO QHS 11/04/17 Primary Care Physician: Fredrick Boland DO [Primary Care Provider] - Medical Necessity - Tobacco Use Smoking Status: Current every day smoker Tobacco Use: Cigarettes Meaningful Use Info Meaningful Use Diagnoses (Choose all that apply): None applicable Code Visit Inpatient E&M: 43567 Disch Hosp
== END 2017-11-04 20:30 | disposition designated cancer center or children's hospital (05) | DRG 449 ==
LOC: ED 20:55 → ICU 22:09
PROVIDERS: Internal Medicine Critical Care Medicine; Admitting Provider Family Medicine; Emergency Provider Emergency Medicine; Family Provider Student in an Organized Health Care Education/Training Program; PCP Student in an Organized Health Care Education/Training Program; Visit Provider Internal Medicine
DX: T50.902A Poisoning by unspecified drugs, medicaments and biological substances, intentional self-harm, initial encounter (principal); G92 Toxic encephalopathy; J96.00 Acute respiratory failure, unspecified whether with hypoxia or hypercapnia; E87.6 Hypokalemia; E66.9 Obesity, unspecified; Z68.30 Body mass index [BMI] 30.0-30.9, adult; F31.9 Bipolar disorder, unspecified; F60.3 Borderline personality disorder; F17.210 Nicotine dependence, cigarettes, uncomplicated; R73.9 Hyperglycemia, unspecified
CPT/HCPCS: 31500; 31720; 36600; 51702; 71045; 74018; 80048; 80076; 80307; 80320; 82803; 82962; 83036; 83735; 84100; 84703; 85025; 87641; 93005; 94002; 94003; 94660; 95831; 97802; 99251; 99285; J7030; A4216; G0463; G0480

== ENCOUNTER 2017-12-08 01:00 | Emergency (ER) | payer MEDICAID, SELFPAY ==
[2017-12-08] VITALS (9 sets, daily range): BP systolic 109; BP diastolic 79; PULSE 101; RESP 14–17; TEMP 37; O2SAT 99; BMI 30.7
--- NOTE | 2017-12-08 02:14 | ED.VISSUMM ---
- ER Visit Summary Date of Service: 12/08/17 Chief Complaint: Suicidal ideation History of Present Illness: The patient is a 32 F history of bipolar disorder, anxiety disorder and borderline personality disorder who presents for suicidal ideation. Patient states that she does not want to wake up. She has no specific plan. 1 month ago she did intentionally overdose on her medications, and she states it was a spur at the moment decision and not planned out. Her intention was to kill herself. She states she is felt suicidal for 18 years. She is on multiple medications and does not feel they are helping. She currently denies any chest pain, shortness of breath, abdominal pain, nausea or vomiting, URI symptoms, fever or any other concerns. She does state she has been drinking alcohol today. She is a smoker. She called the crisis line and spoke with the crisis counselor, who was very concerned for patient's suicidal condition and pink slip the patient. She advised her to come to the emergency department. Physical Examination: Vital signs: afebrile, hemodynamically stable, no hypoxia on room air General: well nourished, well developed, in no distress Skin: warm, dry, no rash, no pallor, well-healed old incisions on the left forearm HEENT: normocephalic and atraumatic; PERRL, EOMI, moist mucous membranes Cardiovascular: Mildly tachycardic rate and rhythm without murmurs, no peripheral edema, 2+ pulses all distal extremities Respiratory: No increased work of breathing, lungs are clear to auscultation bilaterally, no rales, rhonchi or wheezing Abdominal: Abdomen is soft, nontender with normoactive bowel sounds, no guarding or rebound, no masses MSK: Moves all extremities, no deformities, normal strength Neuro: Awake and alert, oriented ?4. No facial droop, sensation and motor function intact and symmetric Psych: Tearful, depressed affect, positive suicidal ideation Test Results: Abnormal Lab Results 12/08/17 12/08/17 12/08/17 02:05 02:05 02:05 WBC 7.9 RBC 4.60 Hgb 14.0 Hct 41.8 MCV 90.9 MCH 30.4 MCHC 33.5 RDW 13.1 RDW Differential 43.2 Plt Count 351 MPV 8.4 Immature Gran % (Auto) 0.100 Neut % (Auto) 52.4 Lymph % (Auto) 40.6 [place] % (Auto) 4.9 Eos % (Auto) 1.6 Baso % (Auto) 0.4 Absolute Neuts (auto) 4.2 Absolute Lymphs (auto) 3.22 Total Counted Not Reportable Sodium 142 Potassium 3.4 L Chloride 106 Carbon Dioxide 27.0 Anion Gap 9 BUN 7 Creatinine 0.94 Estim Creat Clear Calc 85.07 Est GFR (MDRD) Af Amer 87 Est GFR (MDRD) Non-Af 72 BUN/Creatinine Ratio 7.4 L Glucose 113 H Calcium 8.5 Serum , Qual Urine Opiates Screen Urine Methadone Screen Ur Barbiturates Screen Ur Phencyclidine Scrn Ur Amphetamines Screen U Methamphetamin-MDMA U Benzodiazepines Scrn Urine Cocaine Screen U Cannabinoids Screen Ur Drug Screen Comment Ethyl Alcohol 148.0 12/08/17 12/08/17 12/08/17 02:05 04:20 07:38 WBC RBC Hgb Hct MCV MCH MCHC RDW RDW Differential Plt Count MPV Immature Gran % (Auto) Neut % (Auto) Lymph % (Auto) [place] % (Auto) Eos % (Auto) Baso % (Auto) Absolute Neuts (auto) Absolute Lymphs (auto) Total Counted Sodium Potassium Chloride Carbon Dioxide Anion Gap BUN Creatinine Estim Creat Clear Calc Est GFR (MDRD) Af Amer Est GFR (MDRD) Non-Af BUN/Creatinine Ratio Glucose Calcium Serum , Qual NEGATIVE Urine Opiates Screen NEGATIVE Urine Methadone Screen NEGATIVE Ur Barbiturates Screen NEGATIVE Ur Phencyclidine Scrn NEGATIVE Ur Amphetamines Screen NEGATIVE U Methamphetamin-MDMA NEGATIVE U Benzodiazepines Scrn NEGATIVE Urine Cocaine Screen NEGATIVE U Cannabinoids Screen NEGATIVE Ur Drug Screen Comment Ethyl Alcohol 11.0 Emergency Department Course and Treatment: Medical screening exam was performed. It was remarkable only for elevated alcohol level of 143. Patient was clinically sober on initial evaluation. She was evaluated by the crisis counselor, who had initially taken the patient's phone call and had already written a pink slip for the patient. Patient will require admission to an inpatient facility for further evaluation and management of suicidal ideation. Patient was observed and an alcohol level was rechecked. Patient's final disposition is pending acceptance by the inpatient facility. Treatment Plan: [] Disposition: [] Impression: Suicidal ideation This note was generated with [employer] software. It may contain incorrect words, spelling, and punctuation that were not noted in review of the chart prior to signing ED Disposition - Plan for ED Patient: Chief Complaint: Suicidal Referrals: Fredrick Boland DO [Primary Care Provider] -
[2017-12-08 02:17] LABS: Absolute Lymphocyte Count 3.22 X10^3/ul (0.83-4.51); Absolute Neutrophil Count 4.2 X10^3/uL (2.0-7.7); Basophil# 0.03 X10^3/uL; Basophil% 0.4 % (0-1); Eosinophil# 0.13 X10^3/uL; Eosinophils% 1.6 % (0-5); Hematocrit 41.8 % (37-47); Lymphocyte # 3.22 X10^3/ul (4.0); Lymphocyte % 40.6 % (19-41); Mean Corp Hgb Conc 33.5 g/gl (32-36); Mean Corpuscular Hgb 30.4 pg (27.0-32.0); Mean Corpuscular Volume 90.9 fL (81-99); Mean Platelet Vol. 8.4 fl (6.2-12.0); Monocyte# 0.39 X10^3/uL; Monocyte% 4.9 % (0-10); Neutrophil # 4.15 X10^3/uL (2.7-7.7); Neutrophil % 52.4 % (47-70); Platelet Count 351 K/mm3 (150-450); RBC Distribution Width CV 13.1 % (11.6-14.6); RBC Distribution Width SD 43.2 fl (35.1-43.9); White Blood Count 7.9 K/mm3 (4.4-11.0)
[2017-12-08 02:24] LABS: POSITIVE COUNT NO; POSITIVE DIFFERENTIAL NO; POSITIVE MORPHOLOGY NO
[2017-12-08 02:34] LABS: Anion Gap 9 (5-15); BUN 7 mg/dL (7-18); BUN/Creat Ratio 7.4 RATIO (10-20); Calcium,Total 8.5 mg/dL (8.5-10.1); Chloride 106 mmol/L (98-107); Creatinine, Serum 0.94 mg/dL (0.55-1.02); EST Glomerular Filtration Rate 72 mL/min (>60); Est Glom Filt Rate - Afr Amer 87 mL/min (>60); Estimated Creatinine Clearance 85.07 ml/min; Glucose 113 mg/dL (74-106); Potassium 3.4 mmol/L (3.5-5.1); Sodium Level 142 mmol/L (136-145)
[2017-12-08 02:47] LABS: Pregnancy, Serum, hCG Quali. NEGATIVE Negative (0-9 Nonpreg)
[2017-12-08 05:04] LABS: Amphetamine Urine VISTA NEGATIVE (<1000 ng/mL); Barbiturate Urine VISTA NEGATIVE (< 200 ng/mL); Benzodiazepine Urine VISTA NEGATIVE (< 200 ng/mL); Cocaine Urine VISTA NEGATIVE (< 300 ng/mL); Ecstacy Urine VISTA NEGATIVE (< 500 ng/mL); Methadone Urine VISTA NEGATIVE (< 300 ng/mL); PCP Urine VISTA NEGATIVE (< 25 ng/mL); THC Urine VISTA NEGATIVE (< 50 ng/mL); Vista UDS pH Range 6
[2017-12-08] MEDS: LORazepam 1 MG Tablet PO ×2 (09:38→12:06)
--- NOTE | 2017-12-08 11:29 | ED.RN ---
This nurse spoke with tea tree farm worker and patient has been accepted to [facility]. Patient requesting to speak with pack mule worker and states that she was going to be able to speak with one again today. Usha from Crisis to come in and see her. Mother also notified that patient is in the er per the patient's request.
--- NOTE | 2017-12-08 12:28 | ED.RN ---
PT INFORMED OF TRANSFER TO [facility]. PT AGITATED AND TEARFUL ABOUT TRANSFER. PT REQUESTS TO GO OUTSIDE TO SMOKE, INFORMED THAT SMOKING IS AGAINST HOSPITAL POLICY AND OFFERED NICOTINE PATCH. PT REFUSED NICOTINE PATCH, ALSO REQUESTS ATIVAN. PHYSICIAN REQUESTED FOR ATIVAN AND MEDICATION GIVEN PER ORDER. TRANSFER REPORT CALLED TO [facility] TO NATHANAEL CORTEZ, CHARGE NURSE. WILL CONTINUE TO MONITOR PT, PT DENIES FURTHER NEEDS AT THIS TIME. AWAITING TRANSPORT FOR TRANSFER.
--- NOTE | 2017-12-08 12:46 | ED.RN ---
PT CONTINUES TO BE AGITATED. PT STATES THAT [facility] DID NOT COME TO ED FOR MENTAL HEALTH EVALUATION AND PT IS UPSET THAT PINK SLIP WAS ISSUED PRIOR TO BEING ABLE TO TALK TO CRISIS COUNSELOR. CRISIS COUNSELOR WAS CALLED IN TO SPEAK TO PT, AND PT BECAME FURTHER AGITATED THAT COUNSELOR WAS NOT THERE TO TALK TO HER BUT RATHER TO UPDATE PT TO STATUS OF TRANSFER. THIS NURSE FURTHER EXPLAINED TO PT THAT PINK SLIP WAS IN PLACE AND THAT PT WAS TO BE ADMITTED TO PSYCHIATRIC FACILITY FOR FURTHER EVALUATION. PT CONTINUES TO EXPRESS FRUSTRATION AND AGITATION, DOES THE FAMILY MEMBER AT THE BEDSIDE.
== END 2017-12-08 13:12 ==
PROVIDERS: Emergency Provider Emergency Medicine; Family Provider Student in an Organized Health Care Education/Training Program; PCP Student in an Organized Health Care Education/Training Program
DX: R45.851 Suicidal ideations (principal); F17.200 Nicotine dependence, unspecified, uncomplicated; F31.9 Bipolar disorder, unspecified; F41.9 Anxiety disorder, unspecified; F60.3 Borderline personality disorder; Z79.899 Other long term (current) drug therapy
CPT/HCPCS: 36415; 80048; 80307; 80320; 84703; 85025; 99285; G0480

== ENCOUNTER 2018-02-05 16:42 | Emergency (ER) | payer OTHER, MEDICAID, SELFPAY ==
[2018-02-05 16:46] VITALS: BP 141/86; PULSE 56; RESP 18; TEMP 36.6; O2SAT 98; BMI 30.4
[2018-02-05 16:57] VITALS: BP 155/85; PULSE 62; RESP 14; O2SAT 98
[2018-02-05] MEDS: Lidocaine/Epi/Tetracaine 50 ML 1 APPLIC TOPICAL (17:25)
[2018-02-05] MEDS: oxyCODONE 5 MG Tablet PO (17:25)
[2018-02-05] MEDS: Naproxen 500 MG Tablet PO (17:25)
[2018-02-05] MEDS: Ondansetron ODT 4 MG Tablet PO (17:25)
--- NOTE | 2018-02-05 17:33 | ED.VISSUMM ---
- ER Visit Summary Date of Service: 02/05/18 Chief Complaint: Left hand injury History of Present Illness: The patient is a 32 F who states that she got a crush injury to her left hand after getting it caught between 2 pieces of steel at work. She does have a small laceration on the back of her hand. Tetanus is up-to-date. She is right-hand dominant. Physical Examination: Vital signs unremarkable. Left upper extremity examination is significant for diffuse tenderness throughout the left hand. She can wiggle fingers. She has normal cap refill and sensation distally. There is a 4 mm laceration over the dorsal aspect of the left hand. Test Results: Left hand x-ray reveals no fracture or dislocation. There is probable soft tissue laceration with some swelling noted. Emergency Department Course and Treatment: She is given Naprosyn, Zofran, and 1 tab of oxycodone. At this time patient is refusing suture. Lidocaine jelly will be applied to the area. Wound is thoroughly cleansed. Steri-strip and Dermabond are applied. Patient is to follow-up with [facility]. Treatment Plan: [] Disposition: Discharge Impression: 1. Crush injury left hand 2. Left hand laceration status post Dermabond This note was generated with [employer] dictation software. It may contain incorrect words, spelling, and punctuation that were not noted in review of the chart prior to signing ED Disposition - Plan for ED Patient: Chief Complaint: Upper Extremity Injury Referrals: Fredrick Boland DO [Primary Care Provider] -
--- NOTE | 2018-02-05 17:37 | ED.DEP ---
ED Disposition - Plan for ED Patient: Disposition: Home or Assisted Living Chief Complaint: Upper Extremity Injury Instructions: ED Crush Injury Finger No Fx, ED Laceration Hand Prescriptions: Naproxen [Naprosyn] 500 mg PO BID PRN PRN #20 tablet PRN Reason: Pain [facility]errals: [facility]YSICIANS] - 3-5 Days
[2018-02-05 19:02] VITALS: BP 141/78; PULSE 60; RESP 14; O2SAT 99
== END 2018-02-05 19:03 | disposition home or self-care (01) ==
PROVIDERS: Emergency Provider Emergency Medicine; Family Provider Student in an Organized Health Care Education/Training Program; PCP Student in an Organized Health Care Education/Training Program
DX: S61.412A Laceration without foreign body of left hand, initial encounter (principal); W23.0XXA Caught, crushed, jammed, or pinched between moving objects, initial encounter; Y93.9 Activity, unspecified; Y92.9 Unspecified place or not applicable; Y99.0 Civilian activity done for income or pay; F31.9 Bipolar disorder, unspecified; F60.3 Borderline personality disorder; Z79.899 Other long term (current) drug therapy; Z72.0 Tobacco use
CPT/HCPCS: 12001; 73130; 99283

== ENCOUNTER 2018-02-06 17:28 | Emergency (ER) | payer OTHER, MEDICAID, SELFPAY ==
[2018-02-06 17:29] VITALS: BP 111/66; PULSE 76; RESP 16; TEMP 36.7; O2SAT 97; BMI 33.3
[2018-02-06] MEDS: Morphine 4 MG/ML Syringe IV (18:39)
[2018-02-06] MEDS: 0.9% Normal Saline 1,000 ML 150 ML IV (18:40)
[2018-02-06] MEDS: proMETHazine 25 MG/ML Syringe 12.5 MG IV (18:45)
[2018-02-06 18:51] VITALS: BP 122/61; PULSE 63; RESP 18; O2SAT 95
[2018-02-06 18:55] LABS: Absolute Lymphocyte Count 2.49 X10^3/ul (0.83-4.51); Absolute Neutrophil Count 3.9 X10^3/uL (2.0-7.7); Basophil# 0.01 X10^3/uL; Basophil% 0.1 % (0-1); Eosinophil# 0.12 X10^3/uL; Eosinophils% 1.7 % (0-5); Hematocrit 39.4 % (37-47); Hemoglobin 12.6 g/dl (12.0-15.0); Lymphocyte # 2.49 X10^3/ul (4.0); Lymphocyte % 34.5 % (19-41); Mean Corpuscular Hgb 30.1 pg (27.0-32.0); Mean Corpuscular Volume 94.3 fL (81-99); Mean Platelet Vol. 9.7 fl (6.2-12.0); Monocyte# 0.69 X10^3/uL; Monocyte% 9.6 % (0-10); Neutrophil # 3.89 X10^3/uL (2.7-7.7); Platelet Count 316 K/mm3 (150-450); RBC Distribution Width CV 13.7 % (11.6-14.6); RBC Distribution Width SD 46.9 fl (35.1-43.9); Red Blood Count 4.18 M/mm3 (4.2-5.4); White Blood Count 7.2 K/mm3 (4.4-11.0)
--- NOTE | 2018-02-06 18:57 | ED.VISSUMM ---
- ER Visit Summary Date of Service: 02/06/18 Chief Complaint: Left hand pain History of Present Illness: The patient is a 32 F increasing left hand pain and tingling over the past 3 hours. Seen yesterday for a crush injury at work with 2 steel beams. Skirt around 4 PM over 24 hours ago. X-rays yesterday negative for fracture. Patient states tingling in digits 2 through 4. No new injuries. Last meal was over 6 hours ago. No anticoagulation medications. Physical Examination: General: Alert and oriented ?3, mild distress HEENT: Normocephalic, atraumatic. Moist mucosa membranes Neck: supple, nontender. Cardiovascular: Regular rate and rhythm, no murmurs Respiratory: Normal breath sounds, symmetric, no distress Abdomen: Soft, nontender, nondistended Extremities: Left upper extremity: There is significant swelling dorsal and palmar aspect of the left hand. There is tense skin at the thenar aspect. There is ecchymosis to the region along with at the wrist. Cap refill to all the digits are less than 3 seconds. Subjective paresthesias to these 3 digits. Neuro: no focal neurological deficits. Test Results: Basic labs, coags were ordered. Pending Emergency Department Course and Treatment: Patient labs ordered, kept n.p.o. Normal saline started. I spoke with orthopedic surgeon liaison planner pending compartment pressure measuring. Spoke with Dr. Anderson, reports to transfer to [facility] for hand specialist. Standard compartments pressure obtained of the thenar aspect left hand noted maximum at 27 mmHg. Patient was given morphine, Phenergan IV for nausea symptoms. I spoke with transfer line along with Dr. Best marinelli, he accepts to the department for hand evaluation. Treatment Plan: [] Disposition: Transfer to [facility] Impression: 1. Left hand compartment syndrome 2. Crush injury left hand, subsequent visit This note was generated with [employer] dictation software. It may contain incorrect words, spelling, and punctuation that were not noted in review of the chart prior to signing ED Disposition - Plan for ED Patient: Disposition: [facility] Chief Complaint: Upper Extremity Injury Diagnosis: Compartment syndrome of left hand, Crushing injury of left hand Referrals: Fredrick Boland DO [Primary Care Provider] -
[2018-02-06 19:06] LABS: POSITIVE COUNT NO; POSITIVE DIFFERENTIAL NO; POSITIVE MORPHOLOGY NO
[2018-02-06 19:08] VITALS: BP 116/71; PULSE 61; RESP 15; O2SAT 97
[2018-02-06 19:09] LABS: Anion Gap 6 (5-15); BUN 9 mg/dL (7-18); BUN/Creat Ratio 11.8 RATIO (10-20); Calcium,Total 8.4 mg/dL (8.5-10.1); Chloride 109 mmol/L (98-107); Creatinine, Serum 0.76 mg/dL (0.55-1.02); EST Glomerular Filtration Rate 92 mL/min (>60); Est Glom Filt Rate - Afr Amer 111 mL/min (>60); Estimated Creatinine Clearance 105.22 ml/min; Glucose 82 mg/dL (74-106); Potassium 3.7 mmol/L (3.5-5.1); Sodium Level 141 mmol/L (136-145)
[2018-02-06 19:10] LABS: International Normalized Ratio 1.1; Prothrombin Time (Protime)PT. 13.9 SECONDS (11.7-14.9)
[2018-02-06 19:11] LABS: Partial Thromboplast Time 31.3 Seconds (24.1-36.2)
[2018-02-06] MEDS: HYDROmorphone 1 MG/ML Syringe IV (19:19)
[2018-02-06 19:20] VITALS: BP 111/66; PULSE 62; RESP 15; O2SAT 98
[2018-02-06 19:29] LABS: Pregnancy, Serum, hCG Quali. NEGATIVE Negative (0-9 Nonpreg)
== END 2018-02-06 19:21 | disposition short-term general hospital (02) ==
PROVIDERS: Emergency Provider Emergency Medicine; Family Provider Student in an Organized Health Care Education/Training Program; PCP Student in an Organized Health Care Education/Training Program
DX: T79.A12A Traumatic compartment syndrome of left upper extremity, initial encounter (principal); W23.0XXA Caught, crushed, jammed, or pinched between moving objects, initial encounter; K21.9 Gastro-esophageal reflux disease without esophagitis; G47.00 Insomnia, unspecified; F32.9 Major depressive disorder, single episode, unspecified; Z79.899 Other long term (current) drug therapy; Z72.0 Tobacco use
CPT/HCPCS: 80048; 84703; 85025; 85610; 85730; 96361; 96374; 96375; 99284; J7030; J7050; A4216

== ENCOUNTER 2018-06-16 10:56 | Emergency (ER) | payer MEDICAID, SELFPAY ==
[2018-06-16 10:57] VITALS: BP 112/72; PULSE 65; RESP 20; TEMP 36.6; O2SAT 98; BMI 30.4
--- NOTE | 2018-06-16 11:12 | ED.DCSUM_ITS ---
- ER Visit Summary Date of Service: 06/16/18 Chief Complaint: Abdominal pain History of Present Illness: The patient is a 32 F presenting with abdominal pain. Patient states that she has had gallbladder attacks in the past. Patient states she ate chicken tenders last night. She has abdominal pain, naus ea, vomiting. She denies fever. Denies diarrhea or constipation. Denies urinary complaints. Denies possibility of . She states she has been told in the past that she should follow-up with a surgeon and she did not follow up. Physical Examination: Vitals are stable. Patient is afebrile. Alert no acute distress. HEENT exam is unremarkable. Neck is supple. Lungs are clear and equal bilaterally. Heart is regular rate and rhythm. Abdomen is soft right upper quadrant tenderness with voluntary guarding, no rebound Extremities are unremarkable. Skin is warm and dry. Remainder of exam is unremarkable. Emergency Department Course and Treatment: Patient given morphine, Zofran IV. CBC, chemistries unremarkable. Liver lipase are normal. Urinalysis shows 0-5 white blood cells. HCG negative. Ultrasound gallbladder shows multiple tiny gallstones. Mild gallbladder wall thickening and trace amount of pe richolecystic fluid. On repeat evaluation, her pain has improved, she continues to have right upper quadrant tenderness but it is much improved, no guarding or rebound. Discussed with Dr. Vargas. Patient will follow-up in his office. She is given a prescription for [place]. She has a listed allergy to hydrocodone. She states this makes her nauseated. She is given a prescription for Zofran. She is advised to return to the ED for worsening complaints. Disposition: Discharge home Impression: Biliary colic This note was generated with [employer] dictation software. It may contain incorrect words, spelling, and punctuation that were not noted in review of the chart prior to signing ED Disposition - Plan for ED Patient: Chief Complaint: Abd Pain Instructions: What are Gallstones? Prescriptions: Hydrocodone Bitart/Apap 5-325 [[place] 5MG-325MG] 1 tablet PO Q6H PRN PRN 3 Days #10 tablet PRN Reason: Pain Ondansetron [Zofran Odt] 4 mg PO Q8H PRN PRN #10 tablet PRN Reason: Nausea Referrals: Fredrick Boland DO [Primary Care Provider] -
[2018-06-16] MEDS: Ondansetron 4 MG/2 ML Vial IV (11:27)
[2018-06-16] MEDS: Morphine 4 MG/ML Syringe IV (11:27)
[2018-06-16] MEDS: 0.9% Normal Saline 1,000 ML 1000 ML IV (11:29)
--- NOTE | 2018-06-16 11:35 | US_ITS ---
STUDY: ABDOMINAL ULTRASOUND - RIGHT UPPER QUADRANT REASON FOR VISIT: Female, 32 years old. Right upper quadrant pain. TECHNIQUE: Ultrasound evaluation of the right upper quadrant was performed with real-time and static [place]ol[place]-scale imaging. TECHNICAL QUALITY: Adequate. COMPARISON: None. FINDINGS: Liver: The liver measures 16.0 cm. There is normal echogenicity of the liver. The bile ducts are within normal limits. There is hepatic color flow. The direction of portal flow is hepatopetal. There is no demonstrated mass lesion. Gallbladder: Normal distended gallbladder. The gallbladder wall is slightly thickened and measures 3.9 mm. There is a positive sonographic Hinds's sign. There is trace of pericholecystic fluid. There are multiple echogenic structures within the gallbladder, consistent with multiple gallstones. Common Bile Duct (C.B.D.): The common bile duct measures 4.4 mm. Pancreas: Normal size of the head, body and tail of the pancreas. There is increased echogenicity of the pancreas. There is no demonstrated pancreatic mass or cyst. Right Kidney: Normal size of the right kidney. The right kidney measures cm. Normal renal cortex. The right cortex measures cm. There is no demonstrated renal mass or cyst. There is no right hydronephrosis. US/Gallbladder IMPRESSION: Multiple tiny gallstones. Mild gallbladder wall thickening and trace amount of pericholecystic fluid. Electronically Signed: Waldo Serrano MD at 13:06 EST Tel [phone], Service support ,
[2018-06-16 11:41] LABS: Red Blood Cells-Urine 0 SEEN /hpf (0-5)
[2018-06-16 11:42] LABS: Absolute Lymphocyte Count 1.77 X10^3/ul (0.83-4.51); Absolute Neutrophil Count 7.1 X10^3/uL (2.0-7.7); Basophil# 0.02 X10^3/uL; Basophil% 0.2 % (0-1); Eosinophil# 0.12 X10^3/uL; Eosinophils% 1.3 % (0-5); Hematocrit 45.3 % (37-47); Hemoglobin 15.1 g/dl (12.0-15.0); Lymphocyte # 1.77 X10^3/ul (4.0); Lymphocyte % 18.4 % (19-41); Mean Corp Hgb Conc 33.3 g/gl (32-36); Mean Corpuscular Hgb 31.4 pg (27.0-32.0); Mean Corpuscular Volume 94.2 fL (81-99); Mean Platelet Vol. 9.3 fl (6.2-12.0); Monocyte# 0.58 X10^3/uL; POSITIVE COUNT NO; POSITIVE DIFFERENTIAL NO; POSITIVE MORPHOLOGY NO; Platelet Count 420 K/mm3 (150-450); RBC Distribution Width CV 12.5 % (11.6-14.6); RBC Distribution Width SD 42.5 fl (35.1-43.9); Red Blood Count 4.81 M/mm3 (4.2-5.4); White Blood Count 9.6 K/mm3 (4.4-11.0)
[2018-06-16 11:43] LABS: Color, Urine Yellow (Yellow); Glucose, Dipstick Normal (Normal); Ketone-Dipstick Negative (Negative); Leukocyte Esterase-Dipstick 25 /ul (Negative); Nitrite-Dipstick Positive (Negative); Occult Blood-Urine Negative /ul (Negative); Protein-Dipstick Negative (Negative); Specific Gravity, Urine 1.025 (1.002-1.030); Urine Bilirubin Dipstick Negative (Negative); Urine Clarity Sl. Cloudy (Clear); Urine Urobilinogen Normal (Normal)
[2018-06-16 11:54] LABS: Bacteria 2+ /hpf (None Seen); Mucous, Urine 1+ /hpf (<or=2+); Squamous Epithelial Cells - UA 0-5 SEEN /hpf (5-10); White Blood Cells 0-5 SEEN /hpf (0-5)
[2018-06-16 11:59] LABS: AST(SGOT) 11 U/L (15-37); Alanine Aminotransfer ALT/SGPT 15 U/L (13-56); Albumin, Serum 3.8 g/dL (3.2-5.0); Alkaline Phosphatase 68 U/L (45-117); Anion Gap 6 (5-15); BUN 10 mg/dL (7-18); BUN/Creat Ratio 10.9 RATIO (10-20); Bilirubin, Direct 0.16 mg/dL (0.00-0.30); Calcium,Total 8.6 mg/dL (8.5-10.1); Chloride 106 mmol/L (98-107); Creatinine, Serum 0.92 mg/dL (0.55-1.02); EST Glomerular Filtration Rate 74 mL/min (>60); Est Glom Filt Rate - Afr Amer 90 mL/min (>60); Estimated Creatinine Clearance 86.92 ml/min; Globulin 3.5 g/dL (2.2-4.2); Glucose 103 mg/dL (74-106); Lipase 97 U/L (73-393); Potassium 3.8 mmol/L (3.5-5.1); Protein, Total 7.3 g/dL (6.4-8.2); Sodium Level 140 mmol/L (136-145)
[2018-06-16 12:18] LABS: Pregnancy, Serum, hCG Quali. NEGATIVE Negative (0-9 Nonpreg)
[2018-06-16 13:00] VITALS: BP 125/92; PULSE 81; RESP 18; O2SAT 98
--- NOTE | 2018-06-16 13:56 | DCINST.ED_ITS ---
ED Disposition - Plan for ED Patient: Chief Complaint: Abd Pain Instructions: What are Gallstones? Prescriptions: Hydrocodone Bitart/Apap 5-325 [[place] 5MG-325MG] 1 tablet PO Q6H PRN PRN 3 Days #10 tablet PRN Reason: Pain Ondansetron [Zofran Odt] 4 mg PO Q8H PRN PRN #10 tablet PRN Reason: Nausea Referrals: Fredrick Boland DO [Primary Care Provider] -
--- NOTE | 2018-06-16 13:59 | ED.DEP ---
ED Disposition - Plan for ED Patient: Chief Complaint: Abd Pain Instructions: What are Gallstones? Prescriptions: Hydrocodone Bitart/Apap 5-325 [[place] 5MG-325MG] 1 tablet PO Q6H PRN PRN 3 Days #10 tablet PRN Reason: Pain Ondansetron [Zofran Odt] 4 mg PO Q8H PRN PRN #10 tablet PRN Reason: Nausea Referrals: Fredrick Boland DO [Primary Care Provider] - Yovani Vargas MD [STAFF PHYSICIAN] -
[2018-06-16 14:10] VITALS: BP 131/78; PULSE 79; RESP 16; O2SAT 99
== END 2018-06-16 14:11 | disposition home or self-care (01) ==
PROVIDERS: Emergency Provider Emergency Medicine; Family Provider Student in an Organized Health Care Education/Training Program; PCP Student in an Organized Health Care Education/Training Program
DX: K80.70 Calculus of gallbladder and bile duct without cholecystitis without obstruction (principal); K21.9 Gastro-esophageal reflux disease without esophagitis; Z79.899 Other long term (current) drug therapy; Z72.0 Tobacco use
CPT/HCPCS: 76705; 80048; 80076; 81001; 83690; 84703; 85025; 96361; 96374; 96375; 99283; J7030; J2405

== ENCOUNTER 2018-06-29 14:08 | Observation (INO) | payer MEDICAID, SELFPAY ==
[2018-06-29] VITALS (8 sets, daily range): BP systolic 104–114; BP diastolic 64–77; PULSE 88–95; RESP 14–18; TEMP 36.9–39.5; O2SAT 96–100; BMI 30.4; BMI 31.6
[2018-06-29] MEDS: Morphine 4 MG/ML Syringe IV ×2 (14:34→16:26)
[2018-06-29] MEDS: 0.9% Normal Saline 1,000 ML 1000 ML IV (14:34)
[2018-06-29] MEDS: Ondansetron 4 MG/2 ML Vial IV (14:34)
[2018-06-29 14:55] LABS: Absolute Lymphocyte Count 1.19 X10^3/ul (0.83-4.51); Absolute Neutrophil Count 8.4 X10^3/uL (2.0-7.7); Basophil# 0.02 X10^3/uL; Basophil% 0.2 % (0-1); Eosinophil# 0.04 X10^3/uL; Eosinophils% 0.4 % (0-5); Hematocrit 43.3 % (37-47); Hemoglobin 14.4 g/dl (12.0-15.0); Lymphocyte # 1.19 X10^3/ul (4.0); Lymphocyte % 11.4 % (19-41); Mean Corp Hgb Conc 33.3 g/gl (32-36); Mean Corpuscular Hgb 31.1 pg (27.0-32.0); Mean Corpuscular Volume 93.5 fL (81-99); Mean Platelet Vol. 9.3 fl (6.2-12.0); Monocyte# 0.79 X10^3/uL; Monocyte% 7.6 % (0-10); Neutrophil # 8.39 X10^3/uL (2.7-7.7); Neutrophil % 80.1 % (47-70); POSITIVE COUNT NO; POSITIVE DIFFERENTIAL NO; POSITIVE MORPHOLOGY NO; Platelet Count 365 K/mm3 (150-450); RBC Distribution Width CV 12.4 % (11.6-14.6); RBC Distribution Width SD 41.9 fl (35.1-43.9); Red Blood Count 4.63 M/mm3 (4.2-5.4); White Blood Count 10.5 K/mm3 (4.4-11.0)
[2018-06-29 15:08] LABS: ALB/GLOB Ratio 0.8 RATIO (0.9-2.4); AST(SGOT) 8 U/L (15-37); Alanine Aminotransfer ALT/SGPT 16 U/L (13-56); Albumin, Serum 3.5 g/dL (3.2-5.0); Alkaline Phosphatase 81 U/L (45-117); Anion Gap 8 (5-15); BUN 6 mg/dL (7-18); BUN/Creat Ratio 6.5 RATIO (10-20); Calcium,Total 8.6 mg/dL (8.5-10.1); Chloride 103 mmol/L (98-107); Creatinine, Serum 0.92 mg/dL (0.55-1.02); EST Glomerular Filtration Rate 74 mL/min (>60); Est Glom Filt Rate - Afr Amer 90 mL/min (>60); Estimated Creatinine Clearance 86.92 ml/min; Globulin 4.3 g/dL (2.2-4.2); Glucose 85 mg/dL (74-106); Lipase 69 U/L (73-393); Potassium 3.4 mmol/L (3.5-5.1); Protein, Total 7.8 g/dL (6.4-8.2); Sodium Level 137 mmol/L (136-145)
--- NOTE | 2018-06-29 15:22 | ED.VISSUMM ---
- ER Visit Summary Date of Service: 06/29/18 Chief Complaint: Abdominal pain History of Present Illness: The patient is a 32 F with right upper quadrant abdominal pain. The patient has had this on and off for years, but it has been getting worse. She was seen here several weeks ago. She had gallstones with pericholecystic fluid and a thickened gallbladder. She was planning to follow-up with Dr. Vargas as an outpatient. She tells me that she had an appointment with him today but missed it because of transportation issues, so she presented here. She is having right upper quadrant pain with nausea. Denies vomiting or other GI symptoms. She does have chills and sweats. Nothing seems to make it better or worse. Physical Examination: Afebrile and vital signs unremarkable. Alert and oriented. No acute distress. Heart regular. Lungs clear. Right upper quadrant tender to palpation. No distention. Skin is normal in color without jaundice. Test Results: Labs unremarkable except for a potassium of 3.4, total bilirubin 1.2. Lipase normal. negative. Drug screen and urinalysis pending. Emergency Department Course and Treatment: Patient was discussed with Dr. Vargas on arrival. He advised checking labs and a tox screen, but did not advise repeat imaging at this time. Patient treated with fluids, morphine, and Zofran. She is requiring multiple doses of morphine. Drug screen and urinalysis pending. Will discuss with Dr. Vargas. Urine testing is still pending. The patient's is having continued pain. I do not believe she will be appropriate for outpatient management given her pain and history of biliary colic. Oncoming doctor will check the results of the urinalysis and urine tox and discussed with Dr. Vargas. Treatment Plan: As above Disposition: Pending results and consultation Impression: 1. Biliary colic This note was generated with [employer] software. It may contain incorrect words, spelling, and punctuation that were not noted in review of the chart prior to signing ED Disposition - Plan for ED Patient: Chief Complaint: Abd Pain Referrals: Fredrick Boland DO [Primary Care Provider] -
--- NOTE | 2018-06-29 15:25 | ED.DCSUM_ITS ---
- ER Visit Summary Date of Service: 06/29/18 Chief Complaint: Abdominal pain History of Present Illness: The patient is a 32 F with right upper quadrant abdominal pain. The patient has had this on and off for years, but it has been getting worse. She was seen here several weeks ago. She had gallstones with pericholecystic fluid and a thickened gallbladder. She was planning to follow- up with Dr. Vargas as an outpatient. She tells me that she had an appointment with him today but missed it because of transportation issues, so she presented here. She is having right upper quadrant pain with nausea. Denies vomiting or other GI symptoms. She does have chills and sweats. Nothing seems to make it better or worse. Physical Examination: Afebrile and vital signs unremarkable. Alert and oriented. No acute distress. Heart regular. Lungs clear. Right upper quadrant tender to palpation. No distention. Skin is normal in color without jaundice. Test Results: Labs unremarkable except for a potassium of 3.4, total bilirubin 1.2. Lipase normal. negative. Drug screen and urinalysis pending. Emergency Department Course and Treatment: Patient was discussed with Dr. Vargas on arrival. He advised checking labs and a tox screen, but did not advise repeat imaging at this time. Patient treated with fluids, morphine, and Zofran. She is requiring multiple doses of morphine. Drug screen and urinalysis pending. Will discuss with Dr. Vargas. Urine testing is still pending. The patient's is having continued pain. I do not believe she will be appropriate for outpatient management given her pain and history of biliary colic. Oncoming doctor will check the results of the urinalysis and urine tox and discussed with Dr. Vargas. Treatment Plan: As above Disposition: Pending results and consultation Impression: 1. Biliary colic This note was generated with [employer] software. It may contain incorrect words, spelling, and punctuation that were not noted in review of the chart prior to signing ED Disposition - Plan for ED Patient: Chief Complaint: Abd Pain Referrals: Fredrick Boland DO [Primary Care Provider] -
[2018-06-29 15:27] LABS: Color, Urine Yellow (Yellow); Glucose, Dipstick Normal (Normal); Ketone-Dipstick Negative (Negative); Leukocyte Esterase-Dipstick 500 /ul (Negative); Nitrite-Dipstick Positive (Negative); Occult Blood-Urine 50 /ul (Negative); Protein-Dipstick 100 mg/dl (Negative); Specific Gravity, Urine 1.015 (1.002-1.030); Urine Bilirubin Dipstick Negative (Negative); Urine Clarity Cloudy (Clear); Urine Urobilinogen 1 mg/dl (Normal)
[2018-06-29 15:31] LABS: Pregnancy, Serum, hCG Quali. NEGATIVE Negative (0-9 Nonpreg)
[2018-06-29 15:57] LABS: Amphetamine Urine VISTA NEGATIVE (<1000 ng/mL); Barbiturate Urine VISTA NEGATIVE (< 200 ng/mL); Benzodiazepine Urine VISTA NEGATIVE (< 200 ng/mL); Cocaine Urine VISTA NEGATIVE (< 300 ng/mL); Ecstacy Urine VISTA POSITIVE (< 500 ng/mL); Methadone Urine VISTA NEGATIVE (< 300 ng/mL); PCP Urine VISTA NEGATIVE (< 25 ng/mL); THC Urine VISTA NEGATIVE (< 50 ng/mL); Vista UDS pH Range 5
[2018-06-29 16:05] LABS: Mucous, Urine 1+ /hpf (<or=2+)
[2018-06-29 16:06] LABS: Red Blood Cells-Urine 0-5 SEEN /hpf (0-5); White Blood Cells >100 SEEN /hpf (0-5)
[2018-06-29 16:07] LABS: Squamous Epithelial Cells - UA 5-10 SEEN /hpf (5-10); Transitional Epithelial - Ur 0-5 SEEN /hpf (0-5)
[2018-06-29 16:08] LABS: Bacteria 1+ /hpf (None Seen)
--- NOTE | 2018-06-29 18:01 | PCM.HP.STD ---
Problem List (1) Suicide attempt Status: Resolved History of Present Illness Date of Admission: 06/29/18 Chief Complaint: right upper quadrant pain The patient is a 32 year old F presenthe patient notes that she smoked marijuana 2 weeks previously and with possible that this could've been laced in her marijuana.ts with a long-standing history of recurring right upper quadrant pain. She noted symptoms she feels for at least a few years. Her symptoms become more significant since the fall. In May she presented emergency apartment after one of her attacks of right upper quadrant pain following eating a meal. She underwent gallbladder ultrasound that point in time which since her multiple small stones and mild pericholecystic fluid. She was sent home from the emergency room at that time with instruction to follow-up in my office. The patient states she is pretty much had ongoing discomfort is more mild ever since. Last night she noted worsening pain after eating a bagel. The pain is in the right upper quadrant radiates through her back. She also felt like she was having a fever. She presented emerged per with these complaints. The patient was found to have normal white blood cell count mildly elevated bilirubin with otherwise normal transaminases. Urinalysis demonstrated what appeared to be urinary tract infection with leukocyte esterase and nitrate positive. The patient states she has a history of recurring urinary tract infections. She notes no burning when she urinates she denies any flank pain related to pyelonephritis area. The patient has a history of previous suicide attempts and previous drug use. In the past she noted cocaine use and marijuana. A toxicology screen was obtained due to previous positive toxicology screens. This was positive for opiates and MDMA.. the patient states she smokes some marijuana 2 weeks previously. Its possible that this could've been her marijuana that her friends gave her. she denies significant medical use. She smokes greater than 1 pack of cigarettes per day Previous surgical history of sections. She denies other abdominal procedures. Past Medical History Past Medical History (Chronic Problems): Chronic Problems Bipolar disorder (Chronic) Obesity (Chronic) Borderline personality disorder (Chronic) Tobacco use (Chronic) Allergies acetaminophen [From Vicodin] Adverse Reaction (Verified 06/29/18 14:11) Other hydrocodone bitartrate [From Vicodin] Adverse Reaction (Verified 06/29/18 14:11) Other weird reaction to medication oxycodone [From Percocet] Adverse Reaction (Verified 06/29/18 14:11) Other Home Medications: Ambulatory Orders Medication Instructions Recorded Lamotrigine [Lamictal] 200 mg PO DAILY 12/25/13 Ondansetron [Zofran Odt] 4 mg PO Q8H PRN PRN #10 tablet 06/16/18 Dayquill 2 capsule PO Q8H PRN PRN 06/29/18 Omeprazole 40 mg PO DAILY 06/29/18 Trazodone HCl 100 - 200 mg PO DAILY 06/29/18 Surgical History: - - ?1 Psychiatric History: Anxiety, Bipolar, Depression [facility] NURSE History: No pertinent [facility] NURSE history Smoking Status: Current every day smoker - *Family History Maternal History Items: No pertinent history Paternal History Items: - - Father with a history of CABG, coronary artery disease, aortic aneurysm status post repair. Review of Systems Constitutional: Reports: Fever. Denies: Chills, Weight Change HEENT: Denies: Head Aches, Sinus Congestion, Sinus Drainage Cardiovascular: Denies: Chest Pain, Palpitations Respiratory: Denies: Cough, Shortness of breath at rest, Sputum production Gastrointestinal: Reports: Abdominal Pain. Denies: Nausea, Vomiting Genitourinary: Denies: Dysuria Musculoskeletal: Denies: Joint Pain, Joint Tenderness Skin: Denies: Rash, Wounds Neurological: Denies: Numbness, Tingling, Focal weakness Psychiatric: Denies: Anxiety, Depression, Homicidal Ideations, Suicidal Ideations Hematologic/ Lymphatic: Denies: Easy Bruising, Easy Bleeding VTE Information - Inpt Only VTE Present on Admission: No VTE Mechan Device Prophylaxis: SCD's - Physical Exam General: Alert, Oriented x3, Cooperative HEENT: Atraumatic, PERRLA, EOMI, Normocephalic, - - eyes appear somewhat bloodshot Neck: Supple, No JVD, Negative Carotid Bruits Lungs: Clear to auscultation, Normal air movement, - - coarse breath sounds Cardiovascular: Regular rate, No murmurs Abdomen: Bowel Sounds Present, Soft, Tender - in the right upper quadrant Vital Signs Temp Pulse Resp BP Pulse Ox 101.3 F H 90 18 104/72 100 06/29/18 16:29 06/29/18 16:29 06/29/18 16:29 06/29/18 16:29 06/29/18 16:29 Oxygen Delivery Method Room Air Weight: 90.718 kg Body Mass Index (BMI) 30.4 Finger Stick Blood Glucose 133 Laboratory Tests Past 24 Hrs 06/29/18 06/29/18 06/29/18 14:45 14:45 14:45 WBC 10.5 RBC 4.63 Hgb 14.4 Hct 43.3 MCV 93.5 MCH 31.1 MCHC 33.3 RDW 12.4 RDW Differential 41.9 Plt Count 365 MPV 9.3 Immature Gran % (Auto) 0.300 Neut % (Auto) 80.1 H Lymph % (Auto) 11.4 L Kleberg % (Auto) 7.6 Eos % (Auto) 0.4 Baso % (Auto) 0.2 Absolute Neuts (auto) 8.4 H Absolute Lymphs (auto) 1.19 Total Counted Not Reportable Sodium 137 Potassium 3.4 L Chloride 103 Carbon Dioxide 26.0 Anion Gap 8 BUN 6 L Creatinine 0.92 Estim Creat Clear Calc 86.92 Est GFR (MDRD) Af Amer 90 Est GFR (MDRD) Non-Af 74 BUN/Creatinine Ratio 6.5 L Glucose 85 Calcium 8.6 Total Bilirubin 1.20 H AST 8 L ALT 16 Alkaline Phosphatase 81 Total Protein 7.8 Albumin 3.5 Globulin 4.3 H Albumin/Globulin Ratio 0.8 L Lipase 69 L Serum , Qual NEGATIVE Urine Color Urine Clarity Urine pH Ur Specific [place] Urine Protein Urine Glucose (UA) Urine Ketones Urine Occult Blood Urine Nitrite Urine Bilirubin Urine Urobilinogen Ur Leukocyte Esterase Urine RBC Urine WBC Ur Squamous Epith Cells Ur Transition Epith Cell Urine Bacteria Urine Mucus Urine Opiates Screen Urine Methadone Screen Ur Barbiturates Screen Ur Phencyclidine Scrn Ur Amphetamines Screen U Methamphetamin-MDMA U Benzodiazepines Scrn Urine Cocaine Screen U Cannabinoids Screen Ur Drug Screen Comment 06/29/18 06/29/18 15:20 15:20 WBC RBC Hgb Hct MCV MCH MCHC RDW RDW Differential Plt Count MPV Immature Gran % (Auto) Neut % (Auto) Lymph % (Auto) [place] % (Auto) Eos % (Auto) Baso % (Auto) Absolute Neuts (auto) Absolute Lymphs (auto) Total Counted Sodium Potassium Chloride Carbon Dioxide Anion Gap BUN Creatinine Estim Creat Clear Calc Est GFR (MDRD) Af Amer Est GFR (MDRD) Non-Af BUN/Creatinine Ratio Glucose Calcium Total Bilirubin AST ALT Alkaline Phosphatase Total Protein Albumin Globulin Albumin/Globulin Ratio Lipase Serum , Qual Urine Color Yellow Urine Clarity Cloudy Urine pH 6.0 Ur Specific [place] 1.015 Urine Protein 100 H Urine Glucose (UA) Normal Urine Ketones Negative Urine Occult Blood 50 H Urine Nitrite Positive H Urine Bilirubin Negative Urine Urobilinogen 1 H Ur Leukocyte Esterase 500 H Urine RBC 0-5 SEEN Urine WBC >100 SEEN Ur Squamous Epith Cells 5-10 SEEN Ur Transition Epith Cell 0-5 SEEN Urine Bacteria 1+ Urine Mucus 1+ Urine Opiates Screen POSITIVE H Urine Methadone Screen NEGATIVE Ur Barbiturates Screen NEGATIVE Ur Phencyclidine Scrn NEGATIVE Ur Amphetamines Screen NEGATIVE U Methamphetamin-MDMA POSITIVE H U Benzodiazepines Scrn NEGATIVE Urine Cocaine Screen NEGATIVE U Cannabinoids Screen NEGATIVE Ur Drug Screen Comment Assessment/Plan All Active Problems Suicide attempt (Resolved) right upper quadrant pain, biliary colic/cholecystitis, retract infection, tobacco use, substance use, psychiatric issues The patient will be admitted for IV antibiotics, pain control with plans for laparoscopically stuck within normal range gram performed tomorrow area did the patient stands the risks, benefits, possible complications, alternatives and consents to the planned surgical procedure. Sequential compression devices will be placed. urinary tract infection. Patient was started on Zosyn given her above history which should also cover her urinary tract infection. we'll obtain chest x-ray given tobacco and marijuana and other substance use. we'll continue patient's regular medications given her depression and psychiatric issues.
--- NOTE | 2018-06-29 18:02 | RAD_ITS ---
STUDY: X-RAY CHEST REASON FOR EXAM: Female, 32 years old. Chest pain and cough TECHNIQUE: PA and lateral views of the chest. COMPARISON: 11/03/2017 FINDINGS: The lungs are clear and expanded. There is no demonstrated pleural abnormality. Normal size heart. Normal mediastinum and robin. Normal visualized pulmonary arteries. Normal visualized aortic arch and descending thoracic aorta. Normal visualized thoracic spine. Normal visualized ribs, clavicles, and shoulders. There is no demonstrated abnormality of the visualized soft tissue structures of the upper abdomen. RAD/Chest PA and Lateral IMPRESSION: Normal x-ray examination of the chest. Electronically Signed: Matteo Dyer MD at 18:35 EST , Service support ,
[2018-06-29] MEDS: Morphine 2 MG/ML Syringe IV ×3 (19:50→23:38)
[2018-06-29] MEDS: Lactated Ringers 1,000 ML 75 ML IV (19:52)
[2018-06-29] MEDS: Acetaminophen 325 MG Tablet 650 MG PO (19:53)
[2018-06-29] MEDS: 0.9% NaCl Peripheral Flush Adult/Peds IV ×3 (19:53→23:39)
[2018-06-29] MEDS: lamoTRIgine 100 MG Tablet 200 MG PO (21:12)
[2018-06-30] VITALS (17 sets, daily range): BP systolic 97–118; BP diastolic 59–83; PULSE 73–102; RESP 14–18; TEMP 36.9–38.3; O2SAT 87–98; BMI 31.6
--- NOTE | 2018-06-30 | GALL_PTH ---
PATIENT: CHERYL ROSADO LOC: MS3 U#:[id number] AGE/SX: 32/F ROOM: MS323 RE06/29/[address]: Dr. Yovani Vargas MD : [id number] BED: 1 DIS: 07/02/2018 SPEC #: [id number] RECD: 06/30/18 14:57 STATUS: NIKOLAS REQ #: [id number] STACEY: 06/30/18 00:[address]: Yovani Vargas DEPT: SURGICAL PATHOLOGY RECD BY: Alok Stein ENTERED: 06/30/18 14:57 SP TYPE: DORON CORTEZ DR: Dr. Fredrick Boland DO Tissues: Gallbladder, NOS Procedures: Surgery Specimen Level III HEADER OPERATION: Laparoscopic cholecystectomy with IOC PRE-OP DIAGNOSIS: Biliary colic / cholecystitis TISSUE SUBMITTED: Gallbladder MICROSCOPIC DIAGNOSIS Gallbladder, cholecystectomy: Chronic cholecystitis and cholelithiasis. AM:fanny 07/03/18 MICROSCOPIC DESCRIPTION Slides are reviewed. GROSS DESCRIPTION Received is one container labeled with the patient's name and designated gallbladder. The specimen consists of a gallbladder measuring 11 x 3.5 x 3.5 cm. The external surface is smooth and glistening. Focally, it is granular, hemorrhagic and contains cautery artifact. The lumen of the gallbladder contains yellow-green mucoid bile and multiple stones, dark green to black, ranging in size from 1 to 1.3 cm. The mucosa is bile-stained and without any mass lesions. The gallbladder wall averages 0.2 cm in thickness and is free of mass lesions. Grade Foreman sections of the gallbladder and the cystic duct are submitted in one cassette. / AM:fanny 06/30/18 TC:3 CPT: 52371
[2018-06-30] MEDS: Morphine 4 MG/ML Syringe IV ×3 (00:57→18:15)
[2018-06-30] MEDS: proCHLORPERazine 10 MG/2 ML Vial 5 MG IV ×2 (02:20→20:37)
[2018-06-30] MEDS: 0.9% NaCl Peripheral Flush Adult/Peds IV ×3 (02:20→20:37)
[2018-06-30] MEDS: Piperacil/Tazobactam 3.375 GM/50 ML ML IV ×3 (05:59→22:06)
[2018-06-30] MEDS: Acetaminophen 325 MG Tablet 650 MG PO ×2 (06:00→16:23)
--- NOTE | 2018-06-30 06:00 | EKG12_ITS ---
Test Reason : PRE OP Blood Pressure : / mmHG Vent. Rate : 085 BPM Atrial Rate : 085 BPM P-R Int : 148 ms QRS Dur : 100 ms QT Int : 362 ms P-R-T Axes : 031 021 018 degrees QTc Int : 430 ms Normal sinus rhythm Normal ECG Confirmed by KAMLA VO, MARTÍN ([id number]), metropolitan editor TERRA OLIVER ([id number] on 07/06/2018 11:02:38 AM Referred By: Yovani Vargas Confirmed By:MARTÍN CASON MD
[2018-06-30 06:27] LABS: Internal QC Validated? YES +Cl - CLEAR BKGD; Pregnancy, Urine Negative Negative
[2018-06-30 06:35] LABS: Hematocrit 38.3 % (37-47); Hemoglobin 12.8 g/dl (12.0-15.0); Mean Corp Hgb Conc 33.4 g/gl (32-36); Mean Corpuscular Hgb 31.2 pg (27.0-32.0); Mean Corpuscular Volume 93.4 fL (81-99); Mean Platelet Vol. 9.3 fl (6.2-12.0); Platelet Count 312 K/mm3 (150-450); RBC Distribution Width CV 12.3 % (11.6-14.6); White Blood Count 8.8 K/mm3 (4.4-11.0)
[2018-06-30 06:38] LABS: Scan Indicated on CBC? Y/N NO
[2018-06-30 06:41] LABS: Amphetamine Urine VISTA NEGATIVE (<1000 ng/mL); Barbiturate Urine VISTA NEGATIVE (< 200 ng/mL); Benzodiazepine Urine VISTA NEGATIVE (< 200 ng/mL); Cocaine Urine VISTA NEGATIVE (< 300 ng/mL); Ecstacy Urine VISTA NEGATIVE (< 500 ng/mL); Methadone Urine VISTA NEGATIVE (< 300 ng/mL); PCP Urine VISTA NEGATIVE (< 25 ng/mL); THC Urine VISTA NEGATIVE (< 50 ng/mL); Vista UDS pH Range 6
[2018-06-30 06:52] LABS: ALB/GLOB Ratio 0.8 RATIO (0.9-2.4); AST(SGOT) 9 U/L (15-37); Alanine Aminotransfer ALT/SGPT 15 U/L (13-56); Albumin, Serum 3.1 g/dL (3.2-5.0); Alkaline Phosphatase 72 U/L (45-117); Anion Gap 10 (5-15); BUN 4 mg/dL (7-18); BUN/Creat Ratio 4.5 RATIO (10-20); Calcium,Total 8.3 mg/dL (8.5-10.1); Chloride 105 mmol/L (98-107); EST Glomerular Filtration Rate 76 mL/min (>60); Est Glom Filt Rate - Afr Amer 92 mL/min (>60); Estimated Creatinine Clearance 88.85 ml/min; Globulin 3.9 g/dL (2.2-4.2); Glucose 107 mg/dL (74-106); Potassium 3.5 mmol/L (3.5-5.1); Sodium Level 139 mmol/L (136-145)
[2018-06-30] MEDS: Morphine 2 MG/ML Syringe IV ×5 (07:20→20:37)
[2018-06-30] MEDS: Lactated Ringers 1,000 ML 75 ML IV ×2 (10:11→16:07)
--- NOTE | 2018-06-30 11:20 | CASEMGMT ---
Social Work Note Per H+P, pt has history of suicide attempts, MH and substance abuse. SW met with pt. SW introduced self and role at [facility]. Pt is alert and orientated and is getting ready for surgery. Pt states that she lives with her friend but her current boyfriend and her are looking at getting their own place. Pt states that she was previously independent with ADLs. Pt states that she has a history of MH including Bipolar, Depression, anxiety and Insomnia. Per H+P, pt also has a history of Borderline Personality Disorder. Pt states that she currently see's a counselor at [facility] but states that she is changing agencies next week due to her being done with her current counselor. Pt states that she was seeing her counselor once every month or once every three months. Pt states that she is dealing with a lot of stress right now. Pt states that her and her mother used to be best friends but had a falling out recently. Pt states her mom told her that she only tells people about her son and doesn't mention pt as she is embarrassed by her. Pt become emotional and started crying. SW offered support to pt and empathy. Pt also states that her dad has never liked her because she wasn't the straight A, cheerleader type that he wanted her to be. SW again offered support to pt. Pt states that last September her and her boyfriend of 19 years broke up and she overdosed. Pt states that at that time, her parents had decided to care for her five year old while she was getting back on her feet. Pt states that her and her child's father still have a good relationship and they are doing really well at co-parenting. Pt states that her and her father's child are trying to get their child out of pt's parents house and back to the child living with pt or child's father and continue co-parenting. SW offered support to pt. Pt denied any current Suicidal/homicidal thoughts/plans/ideations. Per H+P, pt had history of substance abuse including marijuana and tested positive for opiates and MDMA. This worker didn't have time to ask pt about substance abuse HX as pt was getting ready to go to surgery. SW informed pt that there will be a SW tomorrow at [facility] in the event she would like to talk to SW again. Pt states understanding. Jackelyn Powell SERVICE MEMBER, COMMISSION SALES ASSOCIATE
--- NOTE | 2018-06-30 12:00 | RAD_ITS ---
CLINICAL HISTORY: Female, 32 years old. Right upper quadrant pain. Acute cholecystitis. PROCEDURE: CHOLANGIOGRAM - intraoperative FLUOROSCOPY TIME (if supplied): (0:08) minutes/seconds TECHNIQUE: 49 procedural images were presented for interpretation. COMPARISON: Right upper quadrant ultrasound, June 16, 2018. FINDINGS: Images demonstrate cannulation of the cystic duct stump with injection of contrast. There is opacification of the intra and extrahepatic biliary system without stenosis filling defect or dilatation. There is free spillage of contrast into the duodenum. Please refer to the operative report for further details. RAD/Cholangiogram/ O R,Initial IMPRESSION: Intraoperative cholangiogram as above. Electronically Signed: Gustabo Sierra DO at 23:07 EST Tel [phone], Service support ,
[2018-06-30] MEDS: Bupivacaine Mpf 0.5% 30 ML VIAL (13:35)
--- NOTE | 2018-06-30 13:44 | OP.PCM_ITS ---
Report of Operation Date of Procedure: 06/30/18 Pre-Operative Diagnosis: acute cholecystitis Post-Operative Diagnosis: acute cholecystitis, normal IOC Surgery/Procedure Performed:: laparoscopic cholecystectomy with intraoperative cholangiogram general teller: None Type of Anesthesia:: General Anesthesiologist: Bimal Lynch - ASA2 Specimen's removed: gallbladder Drains: none Estimated Blood Loss (mL): minimal Fluids Replaced: 1050 Description of Procedure: The patient was brought to the operating suite. Sign in was performed verifying patient, site, position, patient was started on Zosyn due to fever with presumed acute cholecystitis and urinary tract infection and DVT prophylaxis with SCDs. Following induction of general anesthetic. The patient?s abdomen was prepped and draped in the usual fashion. Timeout was performed verifying patient, site, position. Local anesthetic was injected below the umbilicus. Incision made and dissection carried down to the umbilical root fascia. 2 stay sutures were placed. Incision made in the fascia, the peritoneum entered under direct visualization. A 10 mm Nguyen trocar was inserted and secured with the stay sutures. Pneumoperitoneum to 15 mmHg was insufflated. 3 right upper quadrant 5 ports were placed in the standard position. Visual inspection revealed an edematous gallbladder with adhesions to the duodenum and stomach. His adhesions were taken down bluntly and sharply. The gallbladder was grasped retracted upward and outward. Dissection was carried out in Calot?s triangle. When a critical view of the neck of the gallbladder funneling of the cystic duct with no signs of aberrant ductal structures were seen, a clip was placed on the neck of the gallbladder cystic duct junction. A partial ductotomy was made. A Cholangiocath was inserted into the duct and secured with a clip. Intraoperative cholangiogram was performed demonstrating filling of the cystic duct filling the common bile duct and emptying into the duodenum without signs of obstruction area and the clip and catheter were removed. 2 clips placed on the cystic duct and the cystic duct divided. Dissection was continued until the cystic artery was clearly dissected and identified. The artery was then doubly clipped proximally singly clipped distally and divided. The gallbladder was then dissected free from the gallbladder fossa using electrocautery. The gallbladder was placed in an Endobag and removed through the umbilical port site. An 0 PDS [id number] suture was placed around the umbilical port site defect. Pneumoperitoneum was reestablished. The gallbladder fossa was checked for hemostasis. With good hemostasis, the area was irrigated and aspirated to clear. 5mm ports were removed under direct visualization with no signs of bleeding. Pneumoperitoneum was released. The Nguyen trocar was removed. The umbilical fascial suture was secured area did skin was closed with interrupted 4-0 Monocryl subcuticular sutures. Steri-Strips and bandages were applied. The patient was brought to recovery room in stable condition. - Admit VTE Documentation VTE Present on Admission: No VTE Mechan Device Prophylaxis: SCD's
[2018-06-30] MEDS: oxyCODONE 5 MG Tablet PO (22:06)
[2018-06-30] MEDS: traZODone 100 MG Tablet PO (22:06)
[2018-07-01] VITALS (8 sets, daily range): BP systolic 99–119; BP diastolic 56–74; PULSE 69–100; RESP 14–18; TEMP 37.2–39.3; O2SAT 93–97
[2018-07-01] MEDS: Morphine 2 MG/ML Syringe IV ×2 (00:56→14:17)
[2018-07-01] MEDS: 0.9% NaCl Peripheral Flush Adult/Peds IV (00:56)
[2018-07-01] MEDS: Acetaminophen 325 MG Tablet 650 MG PO ×2 (03:19→21:04)
[2018-07-01] MEDS: oxyCODONE 5 MG Tablet PO ×3 (04:29→17:05)
[2018-07-01] MEDS: Lactated Ringers 1,000 ML 75 ML IV ×2 (05:18→17:15)
[2018-07-01] MEDS: Piperacil/Tazobactam 3.375 GM/50 ML ML IV ×3 (05:18→21:05)
[2018-07-01 07:18] LABS: Absolute Lymphocyte Count 1.48 X10^3/ul (0.83-4.51); Absolute Neutrophil Count 4.9 X10^3/uL (2.0-7.7); Basophil# 0.02 X10^3/uL; Basophil% 0.3 % (0-1); Eosinophil# 0.02 X10^3/uL; Eosinophils% 0.3 % (0-5); Hematocrit 38.7 % (37-47); Hemoglobin 12.7 g/dl (12.0-15.0); Lymphocyte # 1.48 X10^3/ul (4.0); Lymphocyte % 20.9 % (19-41); Mean Corp Hgb Conc 32.8 g/gl (32-36); Mean Corpuscular Hgb 30.8 pg (27.0-32.0); Mean Corpuscular Volume 93.9 fL (81-99); Mean Platelet Vol. 9.3 fl (6.2-12.0); Monocyte# 0.68 X10^3/uL; Monocyte% 9.6 % (0-10); Neutrophil # 4.85 X10^3/uL (2.7-7.7); Neutrophil % 68.6 % (47-70); Platelet Count 273 K/mm3 (150-450); RBC Distribution Width CV 12.5 % (11.6-14.6); RBC Distribution Width SD 42.6 fl (35.1-43.9); Red Blood Count 4.12 M/mm3 (4.2-5.4); White Blood Count 7.1 K/mm3 (4.4-11.0)
[2018-07-01 07:20] LABS: POSITIVE COUNT NO; POSITIVE DIFFERENTIAL NO; POSITIVE MORPHOLOGY NO
[2018-07-01 07:49] LABS: ALB/GLOB Ratio 0.7 RATIO (0.9-2.4); AST(SGOT) 35 U/L (15-37); Alanine Aminotransfer ALT/SGPT 28 U/L (13-56); Albumin, Serum 2.7 g/dL (3.2-5.0); Alkaline Phosphatase 66 U/L (45-117); Anion Gap 8 (5-15); BUN 3 mg/dL (7-18); BUN/Creat Ratio 3.4 RATIO (10-20); Calcium,Total 8.1 mg/dL (8.5-10.1); Chloride 105 mmol/L (98-107); Creatinine, Serum 0.88 mg/dL (0.55-1.02); EST Glomerular Filtration Rate 78 mL/min (>60); Est Glom Filt Rate - Afr Amer 95 mL/min (>60); Estimated Creatinine Clearance 90.87 ml/min; Globulin 3.9 g/dL (2.2-4.2); Glucose 81 mg/dL (74-106); Potassium 3.7 mmol/L (3.5-5.1); Protein, Total 6.6 g/dL (6.4-8.2); Sodium Level 137 mmol/L (136-145)
[2018-07-01] MEDS: Pantoprazole Sodium 40 MG Tablet PO (09:08)
[2018-07-01] MEDS: lamoTRIgine 100 MG Tablet 200 MG PO (09:08)
--- NOTE | 2018-07-01 09:18 | PN.SURG_ITS ---
- Physical Exam General: Alert, Oriented x3, Cooperative Lungs: Normal air movement, Rales Cardiovascular: Regular rate, Regular Rhythm Abdomen: Bowel Sounds Present, Soft, Tender - at incisions Vital Signs Temp Pulse Resp BP Pulse Ox 99 F 69 16 100/61 93 07/01/18 06:20 07/01/18 06:20 07/01/18 06:20 07/01/18 06:20 07/01/18 06:20 Oxygen Flow Rate (L/min) 1 Oxygen Delivery Method Room Air Weight: 94.2 kg Body Mass Index (BMI) 31.6 Finger Stick Blood Glucose 133 Intake and Output for Last 24 Hours 06/29/18 06/30/18 07/01/18 23:59 23:59 23:59 Intake Total 1311 / 1311 3746 / 3746 1767 / 1767 Output Total Balance 1311 / 1311 3745 / 3745 1767 / 1767 Laboratory Tests Past 24 Hrs 07/01/18 07/01/18 06:58 06:58 WBC 7.1 RBC 4.12 L Hgb 12.7 Hct 38.7 MCV 93.9 MCH 30.8 MCHC 32.8 RDW 12.5 RDW Differential 42.6 Plt Count 273 MPV 9.3 Immature Gran % (Auto) 0.300 Neut % (Auto) 68.6 Lymph % (Auto) 20.9 [place] % (Auto) 9.6 Eos % (Auto) 0.3 Baso % (Auto) 0.3 Absolute Neuts (auto) 4.9 Absolute Lymphs (auto) 1.48 Total Counted Not Reportable Sodium 137 Potassium 3.7 Chloride 105 Carbon Dioxide 24.0 Anion Gap 8 BUN 3 L Creatinine 0.88 Estim Creat Clear Calc 90.87 Est GFR (MDRD) Af Amer 95 Est GFR (MDRD) Non-Af 78 BUN/Creatinine Ratio 3.4 L Glucose 81 Calcium 8.1 L Total Bilirubin 0.80 AST 35 ALT 28 Alkaline Phosphatase 66 Total Protein 6.6 Albumin 2.7 L Globulin 3.9 Albumin/Globulin Ratio 0.7 L Medical Necessity - Tobacco Use Smoking Status: Current every day smoker Tobacco Use: Cigarettes, Vapor Assessment/Plan All Active Problems Suicide attempt (Resolved) right upper quadrant pain, biliary colic/cholecystitis, retract infection, tobacco use, substance use, psychiatric issues POD # 1 s/p laparoscopic cholecystectomy with intraoperative cholangiogram for acute cholecystitis. Gallbladder was inflamed and adherent to the stomach and duodenum. Patient was somewhat hypoactive bowel sounds. We will be careful with advancing diet. Sequential compression devices will be placed. urinary tract infection. patient with fever to 102 overnight. We will recheck urinalysis and urine culture. We will continue Zosyn. Chest x-ray was clear. we'll continue patient's regular medications given her depression and psychiatric issues.
[2018-07-01 09:43] LABS: Bacteria 0 SEEN /hpf (None Seen); Mucous, Urine 0 SEEN /hpf (<or=2+); Red Blood Cells-Urine 0 SEEN /hpf (0-5)
[2018-07-01 09:45] LABS: Color, Urine Yellow (Yellow); Glucose, Dipstick Normal (Normal); Ketone-Dipstick Negative (Negative); Leukocyte Esterase-Dipstick 100 /ul (Negative); Nitrite-Dipstick Negative (Negative); Occult Blood-Urine 10 /ul (Negative); Protein-Dipstick 15 mg/dl (Negative); Urine Bilirubin Dipstick Negative (Negative); Urine Clarity Clear (Clear); Urine Urobilinogen 4 mg/dl (Normal)
[2018-07-01 10:03] LABS: Squamous Epithelial Cells - UA 5-10 SEEN /hpf (5-10); White Blood Cells 25-50 SEEN /hpf (0-5)
[2018-07-01] MEDS: LORazepam 2 MG/ML Syringe 1 MG IV (21:04)
[2018-07-01] MEDS: traZODone 100 MG Tablet PO (23:13)
--- NOTE | 2018-07-02 02:12 | NURSING ---
Pts IV blew w/ 4 unssuccessful attempts to restart. Contacted Dr. Vargas to notify and he stated to 'DC the IV Fluid, will be sending home in AM'. Noted
[2018-07-02 02:37] VITALS: BP 97/57; PULSE 72; RESP 14; TEMP 36.7; O2SAT 95
[2018-07-02 05:16] LABS: Absolute Lymphocyte Count 1.48 X10^3/ul (0.83-4.51); Absolute Neutrophil Count 2.4 X10^3/uL (2.0-7.7); Basophil# 0.03 X10^3/uL; Basophil% 0.6 % (0-1); Eosinophil# 0.18 X10^3/uL; Eosinophils% 3.9 % (0-5); Hemoglobin 12.5 g/dl (12.0-15.0); Lymphocyte # 1.48 X10^3/ul (4.0); Lymphocyte % 31.8 % (19-41); Mean Corp Hgb Conc 32.9 g/gl (32-36); Mean Corpuscular Volume 94.3 fL (81-99); Mean Platelet Vol. 9.3 fl (6.2-12.0); Monocyte# 0.52 X10^3/uL; Monocyte% 11.2 % (0-10); Neutrophil # 2.44 X10^3/uL (2.7-7.7); Neutrophil % 52.5 % (47-70); Platelet Count 258 K/mm3 (150-450); RBC Distribution Width SD 40.4 fl (35.1-43.9); Red Blood Count 4.03 M/mm3 (4.2-5.4); White Blood Count 4.7 K/mm3 (4.4-11.0)
[2018-07-02 05:23] LABS: POSITIVE COUNT NO; POSITIVE DIFFERENTIAL NO; POSITIVE MORPHOLOGY NO
[2018-07-02 05:27] LABS: ALB/GLOB Ratio 0.7 RATIO (0.9-2.4); AST(SGOT) 24 U/L (15-37); Alanine Aminotransfer ALT/SGPT 29 U/L (13-56); Albumin, Serum 2.6 g/dL (3.2-5.0); Alkaline Phosphatase 60 U/L (45-117); Anion Gap 8 (5-15); BUN 3 mg/dL (7-18); BUN/Creat Ratio 4.7 RATIO (10-20); Calcium,Total 8.1 mg/dL (8.5-10.1); Chloride 109 mmol/L (98-107); Creatinine, Serum 0.64 mg/dL (0.55-1.02); EST Glomerular Filtration Rate 111 mL/min (>60); Est Glom Filt Rate - Afr Amer 135 mL/min (>60); Estimated Creatinine Clearance 124.94 ml/min; Globulin 3.6 g/dL (2.2-4.2); Glucose 106 mg/dL (74-106); Potassium 3.6 mmol/L (3.5-5.1); Protein, Total 6.2 g/dL (6.4-8.2); Sodium Level 143 mmol/L (136-145)
--- NOTE | 2018-07-02 08:55 | DCINST_ITS ---
Discharge Diet: Light diet - advance as tolerated Discharge Activity: May Not Drive - for 2-3 days or while taking narcotic pain medications., - - Do not drive, work heavy equipment or sign legal documents for 24 hours. May shower in (days): 1 - with the bandage in place. Additional Activity Instructions:: Pain medication may cause nausea. You should typically eat light foods as you take your pain medications. Pain medication may also cause constipation. If this is a problem for you, please discuss with your doctor. Call your doctor if your incision/area has: Continuous Slow Oozing, Sudden Increased Bleeding, Increased Pain/ Swelling, Increased Redness, Foul Smelling Discharge Call your doctor if you observe: Fever of 101 or Higher Suture Line Care: Avoid Pulling/Pushing, Avoid Pinching/Bending Additional Dressing/Incision Instructions:: Leave operative bandaids on for 2 days. When you remove dressing, leave Steri-Strips on until your follow-up appointment, or until the Steri-Strips fall off on their own. Allergies/Adverse Reactions: Allergies acetaminophen [From Vicodin] Adverse Reaction (Verified 06/29/18 14:11) Other hydrocodone bitartrate [From Vicodin] Adverse Reaction (Verified 06/29/18 14:11) Other weird reaction to medication oxycodone [From Percocet] Adverse Reaction (Verified 06/29/18 14:11) Other Medications to take at Discharge Lamotrigine [Lamictal] 200 mg PO DAILY 12/25/13 Ondansetron [Zofran Odt] 4 mg PO Q8H PRN PRN #10 tablet 06/16/18 Dayquill 2 capsule PO Q8H PRN PRN 06/29/18 Omeprazole 40 mg PO DAILY 06/29/18 Trazodone HCl 100 - 200 mg PO DAILY 06/29/18 Acetaminophen [Tylenol Tablet] 650 mg PO Q4H PRN PRN tablet 07/02/18 Amoxicillin/Potassium Clav [Augmentin 875-125 Tablet] 1 ea PO BID #10 tab 07/02/18 Oxycodone [Oxyir] 5 mg PO Q6H PRN PRN 7 Days #14 tab 07/02/18 The following prescriptions were given: Oxycodone [Oxyir] 5 mg PO Q6H PRN PRN 7 Days #14 tab PRN Reason: Severe Pain (-04/05) Amoxicillin/Potassium Clav [Augmentin 875-125 Tablet] 1 ea PO BID #10 tab Primary Care Physician: Fredrick Boland DO [Primary Care Provider] - Test Results: Test results from this visit will be discussed in further detail at your follow- up appointment, if applicable. Please Follow Up With: Yovani Vargas MD - Please call [phone] to schedule an appointment. When: 7 days after your surgery
[2018-07-02 09:15] VITALS: BP 100/64; PULSE 71; RESP 20; TEMP 37.7; O2SAT 96
--- NOTE | 2018-07-02 12:15 | DS.PCM_ITS ---
Discharge Date and Diagnosis Date of Admission: 06/29/18 Date of Discharge: 07/02/18 - Primary Discharge Diagnosis acute cholecystitis, urinary tract infection - Secondary Discharge Diagnosis Chronic Problems Bipolar disorder (Chronic) Obesity (Chronic) Borderline personality disorder (Chronic) Tobacco use (Chronic) Hospital Course and Treatment Operations: cholecystecomy Summary of Care Provided: The patient is a 32 year old F with a long-standing history of right upper quadrant and pain and recurring urinary tract infections who presents to [facility] emergency department with fever and leukocytosis and right upper quadrant pain. She was started on IV antibiotics. She went to the operating suite and underwent laparoscopic cholecystectomy with intraoperative cholangiogram for acute cholecystitis. Urinalysis also demonstrated a urinary tract infection. the patient remained febrile for the first 24 hours postoperatively but then had normalization of her white count and was maintained afebrile area did she was discharged home on oral antibiotics. - Physical Exam General: Alert, Oriented x3, Cooperative Lungs: Clear to auscultation, Normal air movement Cardiovascular: Regular rate, No murmurs Abdomen: Bowel Sounds Present, Soft, Non Tender Vital Signs Temp Pulse Resp BP Pulse Ox 99.8 F H 71 20 H 100/64 96 07/02/18 09:15 07/02/18 09:15 07/02/18 09:15 07/02/18 09:15 07/02/18 09:15 Oxygen Flow Rate (L/min) 1 Oxygen Delivery Method Room Air Weight: 94.2 kg Body Mass Index (BMI) 31.6 Finger Stick Blood Glucose 133 Intake and Output for Last 24 Hours 06/30/18 07/01/18 07/02/18 23:59 23:59 23:59 Intake Total 3746 / 3746 3429 / 3429 816 / 816 Output Total Balance 3745 / 3745 3429 / 3429 816 / 816 Microbiology Past 72 Hours 07/01/18 09:05 Urine Culture - Preliminary Urine, Clean Catch Culture exhibits no growth. Laboratory Tests Past 24 Hrs 07/02/18 07/02/18 04:52 04:52 WBC 4.7 RBC 4.03 L Hgb 12.5 Hct 38.0 MCV 94.3 MCH 31.0 MCHC 32.9 RDW 12.0 RDW Differential 40.4 Plt Count 258 MPV 9.3 Immature Gran % (Auto) 0.000 Neut % (Auto) 52.5 Lymph % (Auto) 31.8 [place] % (Auto) 11.2 H Eos % (Auto) 3.9 Baso % (Auto) 0.6 Absolute Neuts (auto) 2.4 Absolute Lymphs (auto) 1.48 Total Counted Not Reportable Sodium 143 Potassium 3.6 Chloride 109 H Carbon Dioxide 26.0 Anion Gap 8 BUN 3 L Creatinine 0.64 Estim Creat Clear Calc 124.94 Est GFR (MDRD) Af Amer 135 Est GFR (MDRD) Non-Af 111 BUN/Creatinine Ratio 4.7 L Glucose 106 Calcium 8.1 L Total Bilirubin 0.40 AST 24 ALT 29 Alkaline Phosphatase 60 Total Protein 6.2 L Albumin 2.6 L Globulin 3.6 Albumin/Globulin Ratio 0.7 L Discharge Diet: Light diet - advance as tolerated Discharge Activity: May Not Drive - for 2-3 days or while taking narcotic pain medications., - - Do not drive, work heavy equipment or sign legal documents for 24 hours. May shower in (days): 1 - with the bandage in place. Additional Activity Instructions:: Pain medication may cause nausea. You should typically eat light foods as you take your pain medications. Pain medication may also cause constipation. If this is a problem for you, please discuss with your doctor. Call your doctor if your incision/area has: Continuous Slow Oozing, Sudden Increased Bleeding, Increased Pain/ Swelling, Increased Redness, Foul Smelling Discharge Call your doctor if you observe: Fever of 101 or Higher Suture Line Care: Avoid Pulling/Pushing, Avoid Pinching/Bending Additional Dressing/Incision Instructions:: Leave operative bandaids on for 2 days. When you remove dressing, leave Steri-Strips on until your follow-up appointment, or until the Steri-Strips fall off on their own. Home Medications: Medications to take at Discharge Lamotrigine [Lamictal] 200 mg PO DAILY 12/25/13 Ondansetron [Zofran Odt] 4 mg PO Q8H PRN PRN #10 tablet 06/16/18 Dayquill 2 capsule PO Q8H PRN PRN 06/29/18 Omeprazole 40 mg PO DAILY 06/29/18 Trazodone HCl 100 - 200 mg PO DAILY 06/29/18 Acetaminophen [Tylenol Tablet] 650 mg PO Q4H PRN PRN tablet 07/02/18 Amoxicillin/Potassium Clav [Augmentin 875-125 Tablet] 1 ea PO BID #10 tab 07/02/18 Oxycodone [Oxyir] 5 mg PO Q6H PRN PRN 7 Days #14 tab 07/02/18 Following Prescrptions Were Given to Patient: Oxycodone [Oxyir] 5 mg PO Q6H PRN PRN 7 Days #14 tab PRN Reason: Severe Pain (-04/05) Amoxicillin/Potassium Clav [Augmentin 875-125 Tablet] 1 ea PO BID #10 tab Primary Care Physician: Fredrick Boland DO [Primary Care Provider] - Please Follow Up With: Yovani Vargas MD - Please call [phone] to schedule an appointment. When: 7 days after your surgery Medical Necessity - Tobacco Use Smoking Status: Current every day smoker Tobacco Use: Cigarettes, Vapor Meaningful Use Info Meaningful Use Diagnoses (Choose all that apply): None applicable
== END 2018-07-02 09:22 | disposition home or self-care (01) ==
LOC: ED 16:32 → MS3 17:58
PROVIDERS: Anesthesiology; Admitting Provider Surgery; Emergency Provider Emergency Medicine; Family Provider Student in an Organized Health Care Education/Training Program; PCP Student in an Organized Health Care Education/Training Program; Referring Provider Surgery; Visit Provider Surgery
PROC: (CPT 47610; principal; 2018-06-30 11:40)
DX: K80.12 Calculus of gallbladder with acute and chronic cholecystitis without obstruction (principal); F17.210 Nicotine dependence, cigarettes, uncomplicated; F60.3 Borderline personality disorder; E66.9 Obesity, unspecified; Z68.31 Body mass index [BMI] 31.0-31.9, adult; Z71.3 Dietary counseling and surveillance; Z79.899 Other long term (current) drug therapy; N39.0 Urinary tract infection, site not specified; F31.9 Bipolar disorder, unspecified
CPT/HCPCS: 47563; 36415; 71046; 74300; 76000; 80053; 80307; 81001; 81025; 83690; 84703; 85025; 85027; 87086; 88304; 93005; 96361; 96365; 96366; 96375; 96376; 99218; 99284; 99406; J7030; J7040; J7120; A4216; G0378; J2405

== ENCOUNTER 2019-11-28 12:24 | Emergency (ER) | payer MEDICAID, SELFPAY ==
[2019-05-03 08:06] VITALS: BMI 31.6
[2019-11-28 12:25] VITALS: BP 126/77; PULSE 75; RESP 18; TEMP 36.4; O2SAT 98; BMI 30.9
--- NOTE | 2019-11-28 12:45 | RAD_ITS ---
STUDY: X-RAY - RIGHT SHOULDER REASON FOR EXAM: Female, 34 years old. INCREASING RT SHOULDER PAIN X 2 MONTHS, NKI TECHNIQUE: 4 view(s) of the shoulder. COMPARISON: None. FINDINGS: No acute fracture, dislocation or osseous destruction. No significant joint space narrowing. No significant productive changes. No significant soft tissue swelling. RAD/Shoulder min 2 Views IMPRESSION: Right shoulder intact without significant degenerative features Electronically Signed: Joshua Robbins DO at 13:00 EDT Tel , Service support ,
--- NOTE | 2019-11-28 13:08 | ED.VIS.GEN ---
History of Present Illness Chief Complaint: Upper Extremity Injury Informant: Patient Onset: Weeks Current Severity: Mild Maximum Severity: Mild Narrative: Right shoulder pain for about a week Patient reports has had intermittent right shoulder pain for about a week the pain begins in the posterior scapular area right and then involves the shoulder diffusely, she has a job with repetitive activity involving the right shoulder that may be exacerbating the above, no direct trauma no numbness weakness or paresthesias no history of joint ailments or problems she is seen by Dr. Min Morrison for orthopedic issues involving her knee Past Medical History - Allergies and Home Meds Allergies/Adverse Reactions: Allergies acetaminophen [From Vicodin] Adverse Reaction (Verified 11/28/19 12:25) Other hydrocodone bitartrate [From Vicodin] Adverse Reaction (Verified 11/28/19 12:25) Other weird reaction to medication oxycodone [From Percocet] Adverse Reaction (Verified 11/28/19 12:25) Other Primary Care Physician: Fredrick Boland DO [Primary Care Provider] - Past Medical History: - - Otherwise unremarkable as above negative except for the knee Surgical History: - Smoking Status: Current every day smoker - Family History Maternal Family History: Reports: No pertinent history Paternal Family History: Reports: - - Father with a history of CABG, coronary artery disease, aortic aneurysm status post repair. Review of Systems General: Denies: Chills, Fever, Sweats Eyes: Denies: Visual changes - bilaterally, Diplopia ENT: Denies: Rhinorrhea, Sore throat Cardiovascular: Denies: Chest pain, Palpitations Respiratory: Denies: Dyspnea, Cough, Dyspnea on exertion Gastrointestinal: Denies: Abdominal pain, Nausea, Vomiting, Diarrhea, Melena, Hematochezia Genitourinary: Denies: Dysuria, Hematuria, Frequency Musculoskeletal: Reports: Extremity Pain. Denies: Back pain Skin: Denies: Rash, Wounds Neurological: Denies: Headache, Weakness, Numbness Physical Exam Vital Signs/Narrative: Vital Signs Temp Pulse Resp BP Pulse Ox 11/28/19 12:25 97.6 F L 75 18 126/77 H 98 General: Well nourished, Well developed, No Acute Distress Head: Normocephalic, Atraumatic Eyes: Perrl, EOMI ENT: Moist mucous membranes, No rhinorrhea Neck: Supple, Nontender Cardiovascular: Regular rate, Regular rhythm, No murmurs Respiratory: No distress, CTA bilaterally, Chest nontender Abdomen: Soft, Nontender, Nondistended, Normal bowel sounds Back: Nontender, Normal Inspection Extremities: Nontender, No edema, - - Right shoulder she has full range of motion to all modalities, including forward elevation, she complains of pain to the posterior scapular area this area is unremarkable no warmth no skin lesions the humeral area clavicle and the rest of the shoulder exam is unremarkable, arm elbow forearm wrist and hand unremarkable hand function normal normal pulses sensation cap refill Skin: Normal color, No rash Neurological: Alert, Oriented x3, Cranial nerves II-XII grossly intact, Normal Strength, Normal Sensation Psychological: Normal affect, Normal Mood Diagnostic/Tx/Re-eval - Medical Decision Making X-rays obtained that shows nothing acute I explained the differential to her recommended she be off work she declined that at this time explained there could be an occult process causing the above she is comfortable discharge home she is had this for about a week her physical exam is unremarkable she understands need to follow-up with her outpatient providers including orthopedics and return for change in symptoms, she will be started on Naprosyn 500 twice daily and a sling ice conservative measures Home stable Right shoulder pain etiology unclear ED Disposition - Plan for ED Patient: Instructions: ED Shoulder Pain Uncertain Cause Prescriptions: Naproxen [Naprosyn] 500 mg PO BID PRN #20 tab Prescription Printed Referrals: Fredrick Boland DO [Primary Care Provider] -
[2019-11-28] MEDS: Ketorolac 60 MG/2 ML Vial IM (13:31)
[2019-11-28 13:34] VITALS: PULSE 61; PULSE 64; RESP 14; RESP 15; O2SAT 100
== END 2019-11-28 13:43 | disposition home or self-care (01) ==
LOC: ED 13:24
PROVIDERS: Emergency Provider Emergency Medicine; PCP Student in an Organized Health Care Education/Training Program
DX: M25.511 Pain in right shoulder (principal); F17.200 Nicotine dependence, unspecified, uncomplicated
CPT/HCPCS: 73030; 96372; 99283

== ENCOUNTER 2019-12-07 07:22 | Emergency (ER) | payer MEDICAID, SELFPAY ==
[2019-12-07 07:23] VITALS: BP 109/71; PULSE 95; RESP 17; TEMP 36.2; O2SAT 97; BMI 30.8
--- NOTE | 2019-12-07 07:42 | ED.VIS.GEN ---
History of Present Illness Chief Complaint: Sore Throat Informant: Patient Onset: Days - 3 days Context: Gradual Onset Timing: Waxes and wanes Current Severity: Moderate Maximum Severity: Moderate Narrative: Patient presents with 3-day history of sore throat. She states this morning it feels like she is trying to swallow razor blades. She is had mild cough, but states is a smoker's cough at baseline. She denies fever or chills. Today she started developing bilateral ear pain as well. She denies ill contacts. - Past Medical History (1) Bipolar disorder Status: Chronic Past Medical History - Allergies and Home Meds Allergies/Adverse Reactions: Allergies acetaminophen [From Vicodin] Adverse Reaction (Verified 12/07/19 07:23) Other hydrocodone bitartrate [From Vicodin] Adverse Reaction (Verified 12/07/19 07:23) Other weird reaction to medication oxycodone [From Percocet] Adverse Reaction (Verified 12/07/19 07:23) Other Primary Care Physician: Fredrick Boland DO [Primary Care Provider] - Prior records reviewed: Yes Surgical History: - Lives: With Family Smoking Status: Current every day smoker - Family History Maternal Family History: Reports: No pertinent history Paternal Family History: Reports: - - Father with a history of CABG, coronary artery disease, aortic aneurysm status post repair. Review of Systems General: Denies: Chills, Fever Eyes: Denies: Visual changes - bilaterally ENT: Reports: Bilateral ear pain, Sore throat Cardiovascular: Denies: Chest pain Respiratory: Reports: Cough - Chronic smoker's cough Gastrointestinal: Denies: Abdominal pain, Nausea, Vomiting, Diarrhea Musculoskeletal: Denies: Swelling, Extremity Pain Skin: Denies: Rash Neurological: Denies: Headache Hematologic: Denies: Easy bruising, Easy bleeding Allergy: Denies: Uticaria Physical Exam Vital Signs/Narrative: Vital Signs Temp Pulse Resp BP Pulse Ox 12/07/19 07:23 97.2 F L 95 17 109/71 97 Inital Vital Signs reviewed: Yes General: Well nourished, Well developed Head: Normocephalic Eyes: Perrl, EOMI ENT: Moist mucous membranes, TM's clear, - - 2+ tonsils with mild exudate. Uvula midline. Erythema. Patient tolerating secretions well and has a strong voice. Neck: Supple, - - Mild bilateral anterior cervical lymphadenopathy. Cardiovascular: Regular rate, Regular rhythm Respiratory: No distress, CTA bilaterally Abdomen: Soft, Nontender Back: Nontender Extremities: Nontender Skin: Normal color, No rash Neurological: Alert, Oriented x3 Psychological: Normal affect Diagnostic/Tx/Re-eval - Medical Decision Making Patient be treated for presumed strep pharyngitis. She will be given amoxicillin. She will be given a single dose of Decadron here. Small prescription for Robitussin-AC to help with pain control will be given. ED Disposition - Plan for ED Patient: Disposition: Home or Assisted Living Diagnosis: Pharyngitis Instructions: ED Strep Pharyngitis Poss Prescriptions: Amoxicillin 500 mg PO BID #20 tab Transmission Status: Pending to [id number] Guaifenesin/Codeine [Robitussin AC] 5 ml PO Q6H PRN PRN #60 udc PRN Reason: Cough Transmission Status: Received by [id number] Referrals: Fredrick Boland DO [Primary Care Provider] - 1-2 Weeks
[2019-12-07] MEDS: dexAMETHasone 4 MG Tablet 10 MG PO (08:03)
[2019-12-07] MEDS: AMOXICILLIN 500 MG CAPSULE PO (08:03)
== END 2019-12-07 08:05 | disposition home or self-care (01) ==
LOC: ED 07:56
PROVIDERS: Emergency Provider Emergency Medicine; PCP Student in an Organized Health Care Education/Training Program
DX: J02.9 Acute pharyngitis, unspecified (principal); F31.9 Bipolar disorder, unspecified; F17.200 Nicotine dependence, unspecified, uncomplicated
CPT/HCPCS: 99283

== ENCOUNTER 2021-06-08 06:44 | Emergency (ER) | payer MEDICAID, SELFPAY ==
[2021-06-08 06:44] VITALS: PULSE 80; TEMP 36.6; O2SAT 98
[2021-06-08 06:48] VITALS: TEMP 36.8; BMI 28.8
--- NOTE | 2021-06-08 07:27 | ED.VIS.DENTA ---
HPI History of Present Illness Chief Complaint: Dental Informant: patient Onset/Context/Timing Onset: Days Context: Gradual Onset Timing: Continuous Quality: Throbbing Location: Right upper incisors Worsened by: Eating Relieved by: - (Nothing) Associated Symptoms Assocated Symptom - Dental: cold sensitivity and hot sensitivity; Negative for fever, jaw swelling or face swelling Narrative Narrative: Patient presents with right upper dental pain that has been getting worse over the past few days. Patient states today it is worse. Patient states it is throbbing. Patient states it is over the right upper incisors. Patient states it is worse with eating. Patient admits to hot and cold sensitivity. Patient states she has a history of multiple dental caries. Patient does not currently have a dentist. Patient states nothing seems to help with the pain. PFSH [facility] Medical History (Updated 06/08/21 @ 07:[address] Joshua Sepulveda DO) Bipolar disorder Borderline personality disorder Home Medications lamotrigine [Lamictal] 200 mg PO DAILY 12/25/13 [History Last Taken 11/27/19] omeprazole 40 mg PO DAILY 06/29/18 [History Last Taken 11/27/19] trazodone 300 mg PO QHS 06/29/18 [History Last Taken 11/27/19] acetaminophen [Tylenol] 650 mg PO Q4H PRN PRN tablet 07/02/18 [Rx Last Taken 11/27/19] meloxicam 15 mg PO DAILY 11/28/19 [History Last Taken 11/27/19] naproxen 500 mg PO BID PRN #20 tab 11/28/19 [Rx Last Taken Unknown] penicillin V potassium 500 mg PO 4X/DAY #40 tab 06/08/21 [Rx Last Taken Unknown] Allergy/AdvReac Type Severity Reaction Status Date / Time acetaminophen [From Vicodin] AdvReac Other Verified 06/08/21 06:46 hydrocodone bitartrate AdvReac Other Verified 06/08/21 06:46 [From Vicodin] oxycodone [From Percocet] AdvReac Other Verified 06/08/21 06:46 Surgical History (Updated 06/08/21 @ 07:[address] Joshua Sepulveda DO) H/O section History of carpal tunnel surgery Hx of cholecystectomy Social History Smoking Status: Current every day smoker tobacco type: cigarettes ROS ROS ED Constitutional Constitutional ED: Denies chills or fever(s) Eyes Eyes: Denies blurry vision or change in vision ENT ENT ED: Denies rhinorrhea or sore throat Cardiovascular Cardiovascular: Denies chest pain or palpitations Respiratory/Chest Respiratory/Chest: Reports cough; Denies dyspnea Gastrointestinal Gastrointestinal: Denies nausea or vomiting Genitourinary Genitourinary ED: Denies dysuria or hematuria Musculoskeletal Musculoskeletal: Denies back pain or neck pain Integumentary Denies abscess or rash Neurologic Neurologic: Denies headache(s) or weakness Allergic/Immunologic Allergic/Immunologic ED: Denies mouth swelling or urticaria EXAM Physical Exam Const Vital Signs: 06/08/21 06:44 06/08/21 06:48 Temperature 97.8 F 98.3 F Temperature Source Oral Oral Pulse Rate 80 Pulse Ox 98 Oxygen Delivery Method Room Air Positive well nourished, well developed and unkempt General Appearance ED: unkempt and well developed HEENT HEENT Narrative: There are multiple dental caries noted. There is tenderness over the right upper lateral incisor. There is some mild gingival edema. There is no evidence of any abscess. There is no fluctuance. There is no discharge or drainage. Oropharynx is clear. Airway is patent. There is no sublingual edema. There is no evidence of Chivo's angina. Mouth ED: Yes tongue normal Mouth: tongue normal Teeth and Gingiva: caries and poor dentition Throat: posterior oropharynx normal Neck supple and no JVD Neuro oriented x3, CN's II-XII intact bilaterally, moves all extremities, no focal motor deficits and no sensory deficits noted Sensorium / Orientation: alert Psych mental status grossly normal Appearance: unkempt MDM MDM MDM Narrative Medical decision making narrative: Patient was given a dose of Pen-Vee K here. Patient was given a prescription for Pen-Vee K. Patient was given a dental referral list. Patient was instructed to follow-up with a dentist in 5 to 7 days. Patient was instructed to continue taking ibuprofen as needed for pain. Patient understood and was agreeable with the plan. All questions were answered. Discharge Plan Triage Chief Complaint: Dental ED Provider: Joshua Sepulveda Dx/Rx/DC Orders Clinical Impression: Infected dental caries Instructions: ED Dental Pain, ED Dental Cavity Prescriptions: New penicillin V potassium 500 MG tablet 500 mg PO 4X/DAY Qty: 40 RF: 0 No Action lamotrigine [Lamictal] 200 MG tablet 200 mg PO DAILY RF: 0 omeprazole 40 MG capsule,delayed release(DR/EC) 40 mg PO DAILY RF: 0 trazodone 100 MG tablet 300 mg PO QHS RF: 0 acetaminophen [Tylenol] 325 MG tablet 650 mg PO Q4H PRN PRN (Reason: TEMP>101) RF: 0 meloxicam 15 MG tablet 15 mg PO DAILY RF: 0 naproxen 500 MG tablet 500 mg PO BID PRN Qty: 20 RF: 0 Primary Care Provider: Fredrick Boland Referrals: Fredrick Boland DO [Primary Care Provider] - 3-5 Days Disposition Disposition: Home, Self Care Discharge Date/Time: 06/08/21 07:52
[2021-06-08] MEDS: Penicillin Vk 250 MG Tablet 500 MG PO (07:52)
== END 2021-06-08 07:52 | disposition home or self-care (01) ==
PROVIDERS: Emergency Provider Emergency Medicine; PCP Student in an Organized Health Care Education/Training Program
DX: K02.9 Dental caries, unspecified (principal); K04.7 Periapical abscess without sinus; F31.9 Bipolar disorder, unspecified; F60.3 Borderline personality disorder; F17.210 Nicotine dependence, cigarettes, uncomplicated; Z79.899 Other long term (current) drug therapy
CPT/HCPCS: 99283

== ENCOUNTER 2021-08-19 16:03 | Emergency (ER) | payer MEDICAID, SELFPAY ==
[2021-08-19 16:04] VITALS: BP 120/61; PULSE 75; RESP 16; TEMP 36.7; O2SAT 100; BMI 32.1
[2021-08-19] MEDS: 0.9% Normal Saline 1,000 ML 1000 ML IV (16:33)
--- NOTE | 2021-08-19 16:54 | EX.ED.DYSGE1 ---
HPI History of Present Illness Chief Complaint: Weakness Informant: patient Onset/Context/Timing Onset: Weeks (2) Context: Gradual Onset Timing: Continuous Quality: Weakness, aching Location: Generalized Worsened by: Nothing Relieved by: Nothing Narrative Narrative: Patient presents with generalized weakness that has been getting worse over the past 2 weeks. Patient states it is constant. Patient states she feels weak all over. Patient states nothing makes it better nothing makes it worse. Patient states she has a history of anemia and was taking iron. Patient states she is not taking the iron currently because it upsets her stomach. Patient denies any melena or hematochezia. Patient denies any abdominal pain. Patient admits to some shortness of breath. Patient also admits to some generalized body aches. PFSH PFSH Medical History Bipolar disorder Borderline personality disorder Home Medications lamotrigine [Lamictal] 200 mg PO DAILY 12/25/13 [History Last Taken 11/27/19] omeprazole 40 mg PO DAILY 06/29/18 [History Last Taken 11/27/19] trazodone 300 mg PO QHS 06/29/18 [History Last Taken 11/27/19] acetaminophen [Tylenol] 650 mg PO Q4H PRN PRN tablet 07/02/18 [Rx Last Taken 11/27/19] meloxicam 15 mg PO DAILY 11/28/19 [History Last Taken 11/27/19] naproxen 500 mg PO BID PRN #20 tab 11/28/19 [Rx Last Taken Unknown] alprazolam 08/19/21 [History Last Taken Unknown] ferrous gluconate mg 08/19/21 [History Last Taken Unknown] Allergy/AdvReac Type Severity Reaction Status Date / Time No Known Allergies Allergy Verified 08/19/21 18:04 Surgical History H/O section History of carpal tunnel surgery Hx of cholecystectomy Social History Smoking Status: Current every day smoker tobacco type: cigarettes ROS ROS ED Constitutional Constitutional ED: Denies chills or fever(s) Eyes Eyes: Denies blurry vision or change in vision ENT ENT ED: Denies rhinorrhea or sore throat Cardiovascular Cardiovascular: Denies chest pain or palpitations Respiratory/Chest Respiratory/Chest: Reports dyspnea; Denies cough Gastrointestinal Gastrointestinal: Denies nausea or vomiting Genitourinary Genitourinary ED: Denies dysuria or hematuria Musculoskeletal Musculoskeletal: Reports myalgias; Denies back pain or neck pain Integumentary Denies abscess or rash Neurologic Neurologic: Denies headache(s) or weakness Allergic/Immunologic Allergic/Immunologic ED: Denies mouth swelling or urticaria EXAM Physical Exam Const Vital Signs: 08/19/21 16:04 08/19/21 16:10 Temperature 98.1 F Temperature Source Temporal Pulse Rate 75 Respiratory Rate 16 Respiratory Effort Normal Respiratory Pattern Normal Blood Pressure 120/61 Blood Pressure Mean 80 Pulse Ox 100 Oxygen Delivery Method Room Air Positive well nourished and well developed General Appearance ED: well developed HEENT Reports moist mucous membranes Neck supple and no JVD Resp normal respiratory effort and clear to auscultation bilaterally Cardio regular rate, regular rhythm and no murmurs GI normal to inspection, nondistended, normoactive bowel sounds and non-tender Palpation: soft Extremity normal to inspection General Extremety ED: Negative for edema or tenderness General Extremity: Negative for edema Neuro oriented x3, CN's II-XII intact bilaterally and no sensory deficits noted Sensorium / Orientation: alert Motor Exam: strength 5/5 throughout Psych mental status grossly normal Skin no rashes or lesions noted MDM MDM MDM Narrative Medical decision making narrative: Patient was given IV fluids. CBC was obtained and was within normal limits. Comprehensive metabolic profile showed a mild hypokalemia of 3.2. Patient was given a dose of potassium here. Urinalysis does not show any evidence of urinary tract infection. COVID-19 rapid antigen was obtained and was negative. Patient is feeling better on reevaluation. Patient was advised of her findings. Patient was instructed to follow-up with her primary care physician in 5 to 7 days for further evaluation. Patient understood and was agreeable with the plan. All questions were answered. Lab Data Labs: Laboratory Results - last 24 hr 08/19/21 08/19/21 08/19/21 16:32 16:32 16:55 WBC 10.0 RBC 4.16 L Hgb 13.0 Hct 38.3 MCV 92.1 MCH 31.3 MCHC 33.9 RDW Std Deviation 44.4 H RDW Coeff of Chris 13.0 Plt Count 388 MPV 9.3 Immature Gran % (Auto) 0.400 Neut % (Auto) 64.8 Lymph % (Auto) 28.0 [place] % (Auto) 5.8 Eos % (Auto) 0.6 Baso % (Auto) 0.4 Absolute Neuts (auto) 6.4 Absolute Lymphs (auto) 2.79 Nucleated RBC % 0 Sodium 137 Potassium 3.2 L Chloride 106 Carbon Dioxide 25.0 Anion Gap 6 BUN 10 Creatinine 0.94 Estim Creat Clear Calc 82.66 Est GFR (MDRD) Af Amer 86 Est GFR (MDRD) Non-Af 71 BUN/Creatinine Ratio 10.7 Glucose 97 Calcium 8.6 Total Bilirubin 0.40 AST 12 L ALT 18 Alkaline Phosphatase 51 Total Protein 7.0 Albumin 3.1 L Globulin 3.9 Albumin/Globulin Ratio 0.8 L Urine Color Yellow Urine Clarity Clear Urine pH 5.0 Ur Specific Rankin 1.025 Urine Protein 15 H Urine Glucose (UA) Normal Urine Ketones Negative Urine Occult Blood Negative Urine Nitrite Negative Urine Bilirubin Negative Urine Urobilinogen Normal Ur Leukocyte Esterase Negative Urine RBC 0 SEEN Urine WBC 0-5 SEEN Ur Squamous Epith Cells 0-5 SEEN Urine Bacteria 0 SEEN Urine Mucus 0 SEEN Discharge Plan Triage Chief Complaint: Weakness ED Provider: Joshua Sepulveda Dx/Rx/DC Orders Clinical Impression: Viral syndrome Instructions: ED Weakness (Uncertain Cause) Prescriptions: No Action lamotrigine [Lamictal] 200 MG tablet 200 mg PO DAILY RF: 0 omeprazole 40 MG capsule,delayed release(DR/EC) 40 mg PO DAILY RF: 0 trazodone 100 MG tablet 300 mg PO QHS RF: 0 acetaminophen [Tylenol] 325 MG tablet 650 mg PO Q4H PRN PRN (Reason: TEMP>101) RF: 0 meloxicam 15 MG tablet 15 mg PO DAILY RF: 0 naproxen 500 MG tablet 500 mg PO BID PRN Qty: 20 RF: 0 alprazolam 1 mg tablet RF: 0 ferrous gluconate 324 mg (38 mg iron) tablet RF: 0 Primary Care Provider: Fredrick Boland Referrals: Fredrick Boland DO [Primary Care Provider] - 5-7 Days Disposition Disposition: Home, Self Care
[2021-08-19 16:56] LABS: Absolute Lymphocyte Count 2.79 X10^3/uL (0.83-4.51); Absolute Neutrophil Count 6.4 X10^3/uL (2.0-7.7); Basophil# 0.04 X10^3/uL; Basophil% 0.4 % (0-1); Eosinophil# 0.06 X10^3/uL; Eosinophils% 0.6 % (0-5); Hematocrit 38.3 % (37-47); Lymphocyte # 2.79 X10^3/ul (0.83-4.51); Mean Corp Hgb Conc 33.9 g/dL (32-36); Mean Corpuscular Hgb 31.3 pg (27.0-32.0); Mean Corpuscular Volume 92.1 fL (81-99); Mean Platelet Vol. 9.3 fl (6.2-12.0); Monocyte# 0.58 X10^3/uL; Monocyte% 5.8 % (0-10); NRBC Flagged by Analyzer 0 % (0-5); Neutrophil # 6.44 X10^3/uL (2.7-7.7); Neutrophil % 64.8 % (47-70); Platelet Count 388 K/mm3 (150-450); RBC Distribution Width SD 44.4 fl (35.1-43.9); Red Blood Count 4.16 M/mm3 (4.2-5.4)
[2021-08-19 16:59] LABS: Bacteria 0 SEEN /hpf (None Seen); Mucous, Urine 0 SEEN /hpf (<or=2+); Red Blood Cells-Urine 0 SEEN /hpf (0-5)
[2021-08-19 17:05] LABS: Color, Urine Yellow (Yellow); Glucose, Dipstick Normal (Normal); Ketone-Dipstick Negative (Negative); Leukocyte Esterase-Dipstick Negative /ul (Negative); Nitrite-Dipstick Negative (Negative); Occult Blood-Urine Negative /ul (Negative); Protein-Dipstick 15 mg/dl (Negative); Specific Gravity, Urine 1.025 (1.002-1.030); Urine Bilirubin Dipstick Negative (Negative); Urine Clarity Clear (Clear); Urine Urobilinogen Normal (Normal)
[2021-08-19 17:17] LABS: ALB/GLOB Ratio 0.8 RATIO (0.9-2.4); AST(SGOT) 12 U/L (15-37); Alanine Aminotransfer ALT/SGPT 18 U/L (13-56); Albumin, Serum 3.1 g/dL (3.2-5.0); Alkaline Phosphatase 51 U/L (45-117); Anion Gap 6 (5-15); BUN 10 mg/dL (7-18); BUN/Creat Ratio 10.7 RATIO (10-20); Calcium,Total 8.6 mg/dL (8.5-10.1); Chloride 106 mmol/L (98-107); Creatinine, Serum 0.94 mg/dL (0.55-1.02); EST Glomerular Filtration Rate 71 mL/min (>60); Est Glom Filt Rate - Afr Amer 86 mL/min (>60); Estimated Creatinine Clearance 82.66 ml/min; Globulin 3.9 g/dL (2.2-4.2); Glucose 97 mg/dL (74-106); Potassium 3.2 mmol/L (3.5-5.1); Sodium Level 137 mmol/L (136-145)
[2021-08-19] MEDS: Potassium Chloride Oral Tablet 20 MEQ 40 MEQ PO (17:37)
[2021-08-19 17:47] LABS: Squamous Epithelial Cells - UA 0-5 SEEN /hpf (5-10); White Blood Cells 0-5 SEEN /hpf (0-5)
== END 2021-08-19 18:12 | disposition home or self-care (01) ==
PROVIDERS: Emergency Provider Emergency Medicine; PCP Student in an Organized Health Care Education/Training Program; Visit Provider Emergency Medicine
DX: B34.9 Viral infection, unspecified (principal); F31.9 Bipolar disorder, unspecified; F60.3 Borderline personality disorder; E87.6 Hypokalemia; F17.210 Nicotine dependence, cigarettes, uncomplicated; Z79.899 Other long term (current) drug therapy
CPT/HCPCS: 80053; 81001; 85025; 87426; 96360; 96361; 99283; J7030

== ENCOUNTER 2022-04-27 05:22 | Emergency (ER) | payer MEDICAID, SELFPAY ==
[2022-04-27 05:23] VITALS: BP 132/96; PULSE 77; RESP 18; TEMP 36.2; O2SAT 98; BMI 33.6
--- NOTE | 2022-04-27 05:42 | EDS_ITS ---
HPI History of Present Illness Chief Complaint: Anxiety Informant: patient Narrative Narrative: Is a very pleasant 36-year-old female presenting to the emergency room with an anxiety attack. The patient states that she has been on benzodiazepines for about 20 years. She has successfully weaned herself off and has been free of benzodiazepines for the past 30 days plus. She states that she is in the process of getting and moving to [place]. She states that she has a lot going on right now and that she is having a panic attack for the first time in a very long time. She is looking for a way to calm herself down and would prefer not to use benzodiazepines. [facility] Medical History Anxiety Bipolar disorder Borderline personality disorder Home Medications escitalopram oxalate 20 mg tablet 20 mg DAILY 04/27/22 [History Last Taken Unknown] hydroxyzine pamoate 25 mg capsule (Vistaril) 25 mg PO TID PRN anxiety #20 caps 04/27/22 [Rx Last Taken Unknown] trazodone 150 mg tablet 150 mg QHS 04/27/22 [History Last Taken Unknown] Allergy/AdvReac Type Severity Reaction Status Date / Time No Known Allergies Allergy Verified 04/27/22 05:27 Surgical History H/O section History of carpal tunnel surgery Hx of cholecystectomy Social History (Updated 04/27/22 @ 05:[address] Getachew Garnica DO) Smoking Status: Current every day smoker tobacco type: e-cigarettes substance use type: does not use ROS ROS ED Constitutional Constitutional ED: Denies chills or weight loss Eyes Eyes: Denies change in vision or diplopia ENT ENT ED: Denies ear pain, rhinorrhea or sore throat Cardiovascular Cardiovascular: Denies chest pain, orthopnea, palpitations or racing heartbeat Respiratory/Chest Respiratory/Chest: Denies cough, dyspnea or orthopnea Gastrointestinal Gastrointestinal: Denies abdominal pain, diarrhea, nausea or vomiting Genitourinary Genitourinary ED: Denies dysuria, hematuria or urinary frequency Musculoskeletal Musculoskeletal: Denies arthralgias or myalgias Integumentary Denies abscess or rash Neurologic Neurologic: Denies headache(s) or weakness Psychiatric Psychiatric: Reports anxiety; Denies depression, suicidal ideation or suicidal thoughts Endocrine Endocrinology: Denies polydipsia, polyphagia or polyuria Allergic/Immunologic Allergic/Immunologic ED: Denies mouth swelling, tongue swelling or urticaria EXAM Physical Exam Const Vital Signs: 04/27/22 05:23 Temperature 97.1 F L Temperature Source Temporal Pulse Rate 77 Respiratory Rate 18 Blood Pressure 132/96 H Blood Pressure Mean 108 Pulse Ox 98 Oxygen Delivery Method Room Air Positive well nourished and well developed General Appearance ED: well developed HEENT Reports normocephalic, head/scalp atraumatic and moist mucous membranes Eyes PERRL and EOMs intact bilaterally Neck no lymphadenopathy, supple and no JVD Resp normal respiratory effort and clear to auscultation bilaterally Cardio regular rate, regular rhythm and no murmurs GI normal to inspection, nondistended, normoactive bowel sounds and non-tender Palpation: soft Back/Spine no CVA tenderness and normal ROM Extremity normal to inspection General Extremety ED: Negative for edema General Extremity: Negative for edema Neuro oriented x3 and CN's II-XII intact bilaterally Sensorium / Orientation: alert Motor Exam: strength 5/5 throughout Psych mental status grossly normal Mood & Affect: anxious; Negative for depressed or tearful Skin no rashes or lesions noted and no wounds MDM MDM MDM Narrative Medical decision making narrative: Patient received a dose of IM Haldol. I can prescribe the patient some Vistaril. Would recommend follow-up with her doctors return if worsening or concerns Discharge Plan Triage Chief Complaint: Anxiety ED Provider: Getachew Garnica Dx/Rx/DC Orders Clinical Impression: Anxiety, Panic attack Instructions: ED Anxiety Reaction Prescriptions: New hydroxyzine pamoate [Vistaril] 25 mg capsule 25 mg PO TID PRN (Reason: anxiety) Qty: 20 0RF No Action trazodone 150 mg tablet 150 mg QHS Label Comments: TAKE 2 TABLETS BY MOUTH EVERY DAY AT BEDTIME escitalopram oxalate 20 mg tablet 20 mg DAILY Label Comments: TAKE 1 TABLET BY MOUTH EVERY DAY Primary Care Provider: Fredrick Boland Referrals: Fredrick Boland DO [Primary Care Provider] - Disposition Disposition: Home, Self Care
[2022-04-27] MEDS: Haloperidol Lactate 5 MG/ML Vial 10 MG IM (05:57)
[2022-04-27 06:34] VITALS: PULSE 75; RESP 16; O2SAT 99
== END 2022-04-27 06:35 | disposition home or self-care (01) ==
PROVIDERS: Emergency Provider Emergency Medicine; PCP Student in an Organized Health Care Education/Training Program; Visit Provider Emergency Medicine
DX: F41.0 Panic disorder [episodic paroxysmal anxiety] (principal); F17.290 Nicotine dependence, other tobacco product, uncomplicated
CPT/HCPCS: 96372; 99282

== ENCOUNTER 2023-06-20 12:06 | Emergency (ER) | payer MEDICAID, SELFPAY ==
[2023-06-20 12:06] VITALS: BP 116/82; PULSE 103; RESP 16; TEMP 36.2; O2SAT 97; BMI 37.5
--- NOTE | 2023-06-20 12:26 | EDS_ITS ---
HPI HPI - URI History of Present Illness Chief Complaint: Cough Informant: patient Narrative Narrative: 2 days of cough, subjective fevers and chills has not tried to take her temperature but feels like she has a fever and is sweating, runny nose, congestion, generalized malaise and myalgias/headache. 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 No history of pulmonary or cardiac issues. No dyspnea. ROS ROS ED Constitutional Constitutional ED: Reports body ache(s), chills, fever(s), headache(s), malaise and sweats Eyes Eyes: Denies blurry vision or change in vision ENT ENT ED: Reports ear pain bilateral (mild), nasal congestion and rhinorrhea; Denies sore throat Cardiovascular Cardiovascular: Denies chest pain or palpitations Respiratory/Chest Respiratory/Chest: Reports cough; Denies dyspnea or sputum Gastrointestinal Gastrointestinal: Denies abdominal pain, diarrhea, nausea or vomiting Genitourinary Genitourinary ED: Denies dysuria or hematuria Musculoskeletal Musculoskeletal: Reports myalgias; Denies neck pain Integumentary Denies abscess or rash Neurologic Neurologic: Reports headache(s); Denies paresthesias or weakness Psychiatric Psychiatric: Denies depression or suicidal thoughts Endocrine Endocrinology: Denies polydipsia or polyuria PFSH [facility] Medical History Anxiety Bipolar disorder Borderline personality disorder Home Medications escitalopram oxalate 20 mg tablet 20 mg PO DAILY 04/27/22 [History Last Taken 06/19/23] trazodone 150 mg tablet 150 mg PO QHS 04/27/22 [History Last Taken 06/19/23] lamotrigine 150 mg tablet 150 mg PO DAILY 06/20/23 [History Last Taken 06/19/23] norgestimate 0.25 mg-ethinyl estradiol 35 mcg tablet (Kaitlyn) 1 tab PO DAILY 06/20/23 [History Last Taken 06/19/23] olanzapine 20 mg tablet 20 mg PO QHS 06/20/23 [History Last Taken 06/19/23] omeprazole 40 mg capsule,delayed release 40 mg PO DAILY 06/20/23 [History Last Taken 06/19/23] Allergy/AdvReac Type Severity Reaction Status Date / Time No Known Allergies Allergy Verified 06/20/23 12:36 Surgical History H/O section History of carpal tunnel surgery Hx of cholecystectomy Social History Smoking Status: Current every day smoker tobacco type: e-cigarettes substance use type: does not use EXAM Physical Exam Const Vital Signs: 06/20/23 12:06 06/20/23 12:40 Temperature 97.2 F L Temperature Source Temporal Pulse Rate 103 H Respiratory Rate 16 Respiratory Effort Short of Breath Labored Respiratory Depth Normal Respiratory Pattern Tachypnea Blood Pressure 116/82 H Blood Pressure Mean 93 Pulse Ox 97 Oxygen Delivery Method Room Air Room Air Positive well nourished, well developed and obese General Appearance ED: well developed and NAD Nutritional Appearance: obese HEENT Reports external ears normal, EAC's normal, TM's normal bilaterally and moist mucous membranes normocephalic and atraumatic Face and Sinus: Negative for sinus tenderness Throat: Negative for posterior oropharynx abnormal Eyes PERRL and EOMs intact bilaterally Neck no lymphadenopathy, supple and no meningeal signs Resp normal respiratory effort and clear to auscultation bilaterally Cardio no murmurs Rate: regular rate; Negative for tachycardic Rhythm: regular rhythm Extremity normal to inspection and full ROM Neuro oriented x3, CN's II-XII intact bilaterally and no sensory deficits noted Sensorium / Orientation: alert Motor Exam: strength 5/5 throughout Psych mental status grossly normal Skin Skin Narrative: clammy, warm Lesions: no lesions Rashes: no rashes MDM MDM MDM Narrative Medical decision making narrative: Vital signs are noted, she is afebrile here, could be raising her temperature or it broke prior to getting here. She is not dyspnea, is 97% room air with clear lungs, no indication for chest x-ray at this time. Consistent with viral syndrome, there is been a high prevalence of COVID, influenza, RSV, and other viral etiologies in the region recently, we do have rapid test available for COVID, influenza, and RSV which were performed. She is positive for influenza A. Given appropriate discharge instructions for supportive care, she does not meet criteria for need of antiviral medications. She was given a dose of IM Toradol for her headache and myalgias here in the emergency department prior to discharge. Discharge Plan Triage Chief Complaint: Cough ED Provider: Lyndon Horvath Dx/Rx/DC Orders Clinical Impression: Influenza A Instructions: ED Influenza (Adult) Prescriptions: No Action trazodone 150 mg tablet 150 mg PO QHS Patient Comments: TAKE 2 TABLETS BY MOUTH EVERY DAY AT BEDTIME escitalopram oxalate 20 mg tablet 20 mg PO DAILY Patient Comments: TAKE 1 TABLET BY MOUTH EVERY DAY lamotrigine 150 mg tablet 150 mg PO DAILY Patient Comments: TAKE 1 TABLET BY MOUTH EVERY DAY norgestimate-ethinyl estradiol [Kaitlyn] 0.25-35 mg-mcg tablet 1 tab PO DAILY Patient Comments: TAKE 1 TABLET BY MOUTH ONCE DAILY. OKAY TO SKIP PLACEBO WEEK AND START ON NEXT PACKAGE olanzapine 20 mg tablet 20 mg PO QHS Patient Comments: TAKE 1 TABLET BY MOUTH EVERYDAY AT BEDTIME omeprazole 40 mg capsule,delayed release(DR/EC) 40 mg PO DAILY Patient Comments: TAKE 1 CAPSULE BY MOUTH ONCE DAILY Primary Care Provider: Fredrick Boland Referrals: Fredrick Boland DO [Primary Care Provider] - 1 Week if not improving Disposition Disposition: Home, Self Care
[2023-06-20] MEDS: Ketorolac 60 MG/2 ML Vial IM (12:32)
[2023-06-20 12:40] VITALS: O2SAT 95
[2023-06-20 13:46] VITALS: PULSE 86; RESP 18; O2SAT 93
== END 2023-06-20 13:48 | disposition home or self-care (01) ==
PROVIDERS: Emergency Provider Emergency Medicine; PCP Student in an Organized Health Care Education/Training Program; Visit Provider Emergency Medicine
DX: J10.1 Influenza due to other identified influenza virus with other respiratory manifestations (principal); F17.290 Nicotine dependence, other tobacco product, uncomplicated
CPT/HCPCS: 87428; 87807; 96372; 99282

== ENCOUNTER 2023-06-23 19:00 | Emergency (ER) | payer MEDICAID, SELFPAY ==
[2023-06-23 19:01] VITALS: BP 114/90; PULSE 96; RESP 22; TEMP 36; O2SAT 97; BMI 36.8
--- NOTE | 2023-06-23 20:05 | RAD_ITS ---
INDICATION: cough EXAMINATION/TECHNIQUE: X-RAY - XR Chest 1 View COMPARISON: 06/29/2018 FINDINGS: LIFE-SUPPORT AND LINES: 1. None HEART AND VESSELS: The cardiac silhouette, pulmonary vasculature have normal appearance. No evidence of congestive failure. LUNGS AND PLEURAL SPACES: Minimal atelectasis at the LEFT lung base. Remaining lung zones are clear. No pulmonary mass is noted. MEDIASTINUM AND HILAR REGIONS: No masses adenopathy noted. No areas of calcification. Visualized upper airway is normal in position. BONY ELEMENTS: No acute bony changes noted. RAD/Chest 1 View (Portable) IMPRESSION: 1. Minimal atelectasis at the LEFT lung base. Chronic interstitial and pleural thickening is an additional consideration. 2. Remaining lung zones are clear. 3. No congestive failure. Electronically Signed: Yovani Leal MD at 20:20 EST ,
--- OUTSIDE RECORDS SUMMARY | 2023-06-23 20:23 | XMS RPT_ITS | CCD ---
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 Name Role Phone Gloria Munroe Unavailable Unavailabl Gloria Mari Unavailable Unavailabl e ALEX NINO Unavailable Unavailable PROVIDER, UNKNOWN Unavailable Unavailable No, PCP Unavailable Unavailable Fredrick Phillips DO Primary Care Provider Fredrick Phillips DO Primary Care Provider Fredrick Phillips DO Primary Care Provider Fredrick Phillips DO Primary Care Provider Ariella Cortes RN Unavailable Unavailable DONALD VELÁSQUEZ P Attending Unavailable JACQUELINE FREDRICK Yosef Primary Care Unavailable PHILLIPS, FREDRICK L Primary Care Unavailable WILMER, DONALD P Referring Unavailable JACQUELINE FREDRICK Yosef Primary Care Unavailable DONNA GRANADOS J Attending Unavailable JACQUELINE FREDRICK Yosef Primary Care Unavailable DONNA GRANADOS Attending Unavailable DONNA GRANADOS Referring Unavailable JACQUELINE FREDRICK Yosef Primary Care Unavailable JACQUELINE, FREDRICK L Primary Care Unavailable DONNA GRANADOS J Attending Unavailable JACQUELINE FREDRICK Yosef Primary Care Unavailable DONNA GRANADOS J Attending Unavailable DONNA GRANADOS J Attending Unavailable JACQUELINE FREDRICK L Primary Care Unavailable DONNA GRANADOS J Attending Unavailable JACQUELINE, FREDRICK L Primary Care Unavailable ILA GRANADOSI J Attending Unavailable JACQUELINE FREDRICK Yosef Primary Care Unavailable JACQUELINE FREDRICK Yosef Primary Care Unavailable DONNA GRANADOS J Referring Unavailable JACQUELINE RFEDRICK Yosef Primary Care Unavailable DONNA GRANADOS J Attending Unavailable FREDRICK PHILLIPS Primary Care Unavailable DONNA GRANADOS Attending Unavailable FREDRICK PHILLIPS Primary Care Unavailable DONNA GRANADOS Referring Unavailable FREDRICK PHILLIPS Primary Care Unavailable DONNA GRANADOS Attending Unavailable Medications Current Medications Medication Drug Class(es) Dates Sig (Normalized) Sig (Original) escitalopram 20 mg oral tablet (20 sources) Serotonin Reuptake Inhibitor Start: 03-14-2023 End: 06-12-2023 take 2 tablets by mouth once daily escitalopram oxalate (LEXAPRO) 20 mg tablet Take 2 tablets by mouth once daily. 180 tablet 0 03/14/2023 06/12/2023 Active Completed/Discontinued Medications Medication Drug Class(es) Dates Sig (Normalized) Sig (Original) ALPRAZolam 1 mg oral tablet (17 sources) Benzodiazepine Start: 01-11-2022 End: 07-19-2022 take 1 tablet by mouth once daily as needed ALPRAZolam (XANAX) 1 mg tablet Indications: SERGIO (generalized anxiety disorder) Take 1 tablet by mouth once daily as needed for up to 30 days. 30 tablet 0 02/11/2022 07/19/2022 Discontinued (Other) Problems Active Problems Problem Classification Problem Date Documented Date Episodic/Chronic Adjustment disorders (20 sources) Adjustment disorder with depressed mood; Translations: [Adjustment disorder with depressed mood] Onset: 10-12-2006 06-22-2021 Chronic Alcohol-related disorders (1 source) Alcohol abuse; Translations: [Alcohol abuse, uncomplicated] Chronic Anxiety disorders (20 sources) Anxiety disorder, unspecified; Translations: [Anxiety state] Onset: 10-12-2006 06-22-2021 Chronic Deficiency and other anemia (1 source) Iron deficiency anemia; Translations: [Iron deficiency anemia, unspecified] Episodic Disorders usually diagnosed in infancy, childhood, or adolescence (4 sources) Attention deficit hyperactivity disorder, predominantly inattentive type; Translations: [Other specified behavioral and emotional disorders with onset usually occurring in childhood and adolescence] Chronic E Codes: Unspecified (1 source) Injury due to legal intervention; Translations: [Legal intervention, means unspecified, bystander injured, initial encounter] Episodic Esophageal disorders (1 source) Gastroesophageal reflux disease without esophagitis; Translations: [Gastro-esophageal reflux disease without esophagitis] Chronic Malaise and fatigue (1 source) Fatigue; Translations: [Other fatigue] Episodic Mood disorders (20 sources) Bipolar affective disorder, current episode mixed; Translations: [Bipolar disorder, current episode mixed, unspecified] Onset: 03-08-2022 Chronic Mood disorders (2 sources) Major depressive disorder, single episode, unspecified; Translations: [Major depressive disorder, single episode, unspecified] Onset: 02-07-2018 Nutritional deficiencies (20 sources) Vitamin D deficiency; Translations: [Vitamin D deficiency, unspecified] Onset: 10-29-2015 10-29-2015 Chronic Other aftercare (3 sources) Patient encounter status; Translations: [Other roasterman (current) drug therapy] Episodic Other connective tissue disease (2 sources) Pain of bilateral hands; Translations: [Pain in right hand] Episodic Other connective tissue disease (1 source) Pain in both feet; Translations: [Pain in right foot] Episodic Other connective tissue disease (1 source) Muscle pain; Translations: [Myalgia, unspecified site] Episodic Other nervous system disorders (2 sources) Carpal tunnel syndrome, left upper limb; Translations: [Carpal tunnel syndrome, left upper limb] Onset: 02-07-2018 Chronic Other nervous system disorders (20 sources) Carpal tunnel syndrome; Translations: [Carpal tunnel syndrome, unspecified upper limb] Onset: 10-12-2006 10-12-2006 Chronic Other non-traumatic joint disorders (1 source) Multiple joint pain; Translations: [Pain in unspecified joint] Episodic Other nutritional; endocrine; and metabolic disorders (20 sources) Body mass index 30+ - obesity; Translations: [Obesity, unspecified] Onset: 10-29-2015 10-29-2015 Chronic Other screening for suspected conditions (not mental disorders or infectious disease) (1 source) Elevated C-reactive protein; Translations: [Elevated C-reactive protein (CRP)] Episodic Spondylosis; intervertebral disc disorders; other back problems (2 sources) Spasm of back muscles; Translations: [Muscle spasm of back] Episodic Substance-related disorders (3 sources) Nicotine dependence, cigarettes, uncomplicated; Translations: [History of clinical finding in subject] Onset: 02-07-2018 Chronic Substance-related disorders (6 sources) Marijuana user; Translations: [Cannabis use, unspecified, uncomplicated] Onset: 09-27-2022 Episodic Unclassified (2 sources) NO SHOW Unclassified (1 source) History of marijuana use; Translations: [History of marijuana use] Onset: 03-24-2023 Past or Other Problems Problem Classification Problem Date Documented Da te Episodic/Chronic Allergic reactions (2 sources) Allergy status to narcotic agent status; Translations: [Allergy status to narcotic agent status] Onset: 02-07-2018 Episodic Nutritional deficiencies (20 sources) Iron deficiency; Translations: [Iron deficiency] Onset: 10-29-2015 10-29-2015 Episodic Other aftercare (1 source) Other roasterman (current) drug therapy; Translations: [Encounter for long-term (current) use of medications] Onset: 08-16-2022 Episodic Other connective tissue disease (2 sources) Pain in left hand; Translations: [Pain in left hand] Onset: 02-07-2018 Episodic Other injuries and conditions due to external causes (2 sources) Traumatic compartment syndrome of left upper extremity, initial encounter; Translations: [Traumatic compartment syndrome of left upper extremity, init] Onset: 02-07-2018 Episodic Residual codes; unclassified (20 sources) Disturbance in sleep behavior; Translations: [Sleep disturbances] Onset: 10-12-2006 10-12-2006 Episodic Results Test Name Value Interpretation Reference Range Facil ity Vital Signs Date Time Vital Sign Value Performing Clinician Pj mathew 03-29-2022 12:23-0400 Body temperature 97.5 [degF] Fredrick Phillips DO Work Phone: [facility] 03-29-2022 12:23-0400 Body weight 100.7 kg Fredrick Phillips DO Work Phone: [facility] 03-29-2022 12:23-0400 Diastolic blood pressure 60 mm[Hg] Fredrick Phillips DO Work Phone: [facility] 03-29-2022 12:23-0400 Heart rate 76 /min Fredrick Phillips DO Work Phone: [facility] 03-29-2022 12:23-0400 Respiratory rate 16 /min Fredrick Phillips DO Work Phone: [facility] 03-29-2022 12:23-0400 Systolic blood pressure 120 mm[Hg] Fredrick Phillips DO Work Phone: [facility] 02-02-2022 09:00-0400 Body temperature 97.5 [degF] Fredrick Phillips DO Work Phone: [facility] 02-02-2022 09:00-0400 Body weight 100.25 kg Fredrick Phillips DO Work Phone: [facility] 02-02-2022 09:00-0400 Diastolic blood pressure 70 mm[Hg] Fredrick Phillips DO Work Phone: [facility] 02-02-2022 09:00-0400 Heart rate 80 /min Fredrick Phillips DO Work Phone: [facility] 02-02-2022 09:00-0400 Respiratory rate 16 /min Fredrick Phillips DO Work Phone: [facility] 02-02-2022 09:00-0400 Systolic blood pressure 100 mm[Hg] Fredrick Phillips DO Work Phone: [facility] 10-23-2021 08:43-0400 Body weight 97.52 kg Raghav Danisha SECURITY OPERATIONS SPECIALIST.[employer] Work Phone: [facility] 10-23-2021 08:43-0400 Diastolic blood pressure 82 mm[Hg] Raghav Danisha SECURITY OPERATIONS SPECIALIST.[employer] Work Phone: [facility] 10-23-2021 08:43-0400 Heart rate 79 /min Raghav Danisha SECURITY OPERATIONS SPECIALIST.[employer] Work Phone: [facility] 10-23-2021 08:43-0400 Respiratory rate 16 /min Raghav Danisha SECURITY OPERATIONS SPECIALIST.[employer] Work Phone: [facility] 10-23-2021 08:43-0400 SaO2% (BldA) [Mass fraction] 99 % Raghav Danisha SECURITY OPERATIONS SPECIALIST.[employer] Work Phone: [facility] 10-23-2021 08:43-0400 Systolic blood pressure 122 mm[Hg] Raghav Danisha SECURITY OPERATIONS SPECIALIST.[employer] Work Phone: [facility] Encounters Encounter Date Encounter Type Care Provider Facility Start: 06-13-2023 End: 06-14-2023 ambulatory DONNA GRANADOS Facility:[facility] Start: 05-23-2023 ambulatory Donna roman SECURITY OPERATIONS SPECIALIST.JU[employer] Work Phone: Psychiatry Procedures Date Procedure Procedure Detail Performing Clinician Start: 08-16-2022 Follow-up visit Follow Up DONNA GRANADOS Start: 03-04-2022 Adult depression screening assessment Donna Granados SECURITY OPERATIONS SPECIALIST.[employer] Work Phone: Start: 01-27-2022 Adult depression screening assessment Donna Granados SECURITY OPERATIONS SPECIALIST.[employer] Work Phone: Start: 12-23-2021 Adult depression screening assessment Donna Granados SECURITY OPERATIONS SPECIALIST[employer] Work Phone: Start: 11-12-2021 Adult depression screening assessment Donna Granados SECURITY OPERATIONS SPECIALIST.[employer] Work Phone: Start: 10-26-2021 Adult depression screening assessment Raghav Raman SECURITY OPERATIONS SPECIALIST.[employer] Work Phone: Start: 08-27-2021 Adult depression screening assessment Room Emergency Plan of Treatment Date Care Activity Detail Author Start: 05-21-2029 Urine microalbumin profile [facility] Start: 09-08-2025 PAP TESTING PAP TESTING [facility] Start: 07-12-2023 HPV TESTING HPV TESTING [facility] Start: 07-12-2023 PAP TESTING PAP TESTING [facility] Start: 05-16-2023 End: 08-15-2023 Comprehensive metabolic 2000 panel - Serum or Plasma COMP METABOLIC PANEL Lab Routine Encounter for long-term (current) use of medications Expected: 05/16/2023, Expires: 08/15/2023 [facility] Work Phone: Immunizations Immunization Date Immunization Notes Care Provider Fa vane 05-21-2019 tetanus toxoid, redu leilani diphtheria toxoid, and acellular pertussis vaccine, adsorbed Room Emergency [facility] 07-12-2018 influenza virus vacc ine, unspecified formulation Donna Granados APRN.JUANY Work Phone: [facility] Payers Date Payer Category Payer Medicaid [employer] [employer] [employer] [id number] 2014-Present [phone] [address] [place] [address] Medicaid [id number] 2014 Medicaid [id number] 2014 Unknown [id number] 1985 Unknown [id number] Worker's Compensation Social History Date Type Detail Facility Start: 07-18-2019 End: 04-13-2015 Tobacco smoking status CAIS Smokes tobacco daily [facility] Work Phone: End: 04-13-2015 History of tobacco use Smoker [facility] Work Phone: Start: 07-18-2019 Tobacco use and exposure Smoke less tobacco non-user [facility] Work Phone: Start: 10-10-2021 End: 05-16-2023 Alcohol intake Current drinker of alcohol (finding) [facility] Start: 07-18-2021 History SDOH Alcohol Frequency 4 [facility] Start: 07-18-2021 End: 07-13-2022 History SDOH Alcohol Std Drinks 2 [facility] Start: 07-18-2021 End: 07-13-2022 History SDOH Social Connections Worship 1 [facility] Start: 07-18-2021 End: 07-13-2022 History SDOH Social Connections Living 7 [facility] Start: 07-18-2021 End: 07-13-2022 History SDOH Stress 5 [facility] Start: 11-07-2019 Education 21 [facility] Start: 1985 Sex Assigned At Not on file C [facility] Start: 09-30-2021 End: 10-10-2021 Exposure to SARS-CoV-2 (event) Yes [facility] Start: 10-13-2021 End: 03-29-2022 Exposure to SARS-CoV-2 (event) Not sure [facility] End: 04-13-2015 History of tobacco use Cigarette Smoker [facility] Work Phone: Start: 07-13-2022 History SDOH Alcohol Std Drinks 0 [facility] Start: 07-13-2022 History SDOH Physica l Activity MPS 3 [facility] Start: 07-12-2022 End: 04-18-2023 History of Social function [facility] Start: 07-12-2022 End: 04-18-2023 Social connection and isolation panel [facility] Do you belong to any clubs or organizations such as nondenominational groups, unions, fraternal or athletic groups, or school groups? No [facility] Are you now , , , , never or living with a partner? Never [facility] How often to you hav e a drink containing alcohol? Never [facility] How many standard dr inks containing alcohol do you have on a typical day? Patient does not drink [facility] How hard is it for y ou to pay for the very basics like food, housing, medical care, and heating Very hard [facility] Do you feel stress - tense, restless, nervous, or anxious, or unable to sleep at night because your mind is troubled all the time - these days [OSQ] Very much [facility] (I/We) worried wheth er (my/our) food would run out before (I/we) got money to buy more. Often true [facility] Clinical Notes 11-22-2017 to 06-13-2023 Donna Granados APRN.JUANY - 05/16/2023 4:03 PM Donna Newman APRN.CNP - 04/18/2023 1:04 PM EDTTelephone Encounter - Tasia Rand LPN - 03/15/2023 11:48 AM EDTPatient Instructions Note Date & Type Note Facility 06-13-2023 Note HNO ID: [id number] Author: Donna Granados APRN.JUANY Service: ? Author Type: Nurse Practitioner Type: Progress Notes Filed: 06/13/2023 4:31 PM Note Text: Patient did not log in for her virtual visit with the provider today. She did not answer her phone when she was contacted prior to the appointment time. [facility] 05-16-2023 Note HNO ID: [id number] Author: Donna Granados APRN.BEND UP Service: ? Author Type: Nurse Practitioner Type: Progress Notes Filed: 05/16/2023 5:16 PM Note Text: FOLLOW UP - PSYCHIATRIC PROGRESS NOTE Visit Type:Virtual Visit utilizing two-way audio and video for at least a portion of the visit. Consent for virtual visit obtained verbally. Confidentiality limitations with virtual visits reviewed with the patient and guardian, if present, who have accepted the risk verbally prior to proceeding with encounter. I have communicated my name and active licensure. The patient's identity and physical location were verified at the time of this visit. 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 Reason for Visit: Outpatient follow-up and safety monitoring of previously prescribed psychiatric medication, psychotherapy or other treatment CC: Follow up regarding sleep after trazodone dose increase. HPI: Treatment plan from last visit on 04/18/2023: 1. Increase Trazodone to 200 mg to help with difficulty falling asleep. Will notify if it is helping in 2 weeks by sending a [employer] message. 2. Continue the rest of the psychiatric medications at the same dose. 3. Patient said she will schedule and complete EKG for monitoring purposes in 1 week. 4. Discussed incorporating stretching and yoga prior to bedtime. 5. Patient would also like to incorporate walking in her routine 3 times a week. 6. Notify provider when her insurance has been updated so we can start the referral process for ECT. 7. Encouraged to also schedule an appointment with a therapist. Today Cheryl shares that things have been the same. Struggles with falling asleep. Staying with friends currently. Has a hard time with her brain not shutting off. Denies any side effects from the trazodone dose. She has not been able to get EKG done. Would like to get it done after thanksgiving. Looks forward to seeing son and her mother since they have reconciled 3 years. She is looking for a job. Has applied to [employer]. She is worried that the background check is taking too long. Has been following up daily. She has been able to walk around a little bit for exercise. Unable to do it as often due to the cold weather. She has tried stretching prior to bedtime. Notices her body relaxing more when she does this. Denies any change in her nicotine use. She changes her cartridge every other day. Denies any marijuana use currently and then states, that might change as it becomes legal on June 02 . Discuss the risks of marijuana use with her mood disorder diagnosis. She does not have an update on insurance change yet. Risks and benefits of the medication, including any black box warnings, were discussed with the patient. Interval Progress: Same PATIENT DATA: Generalized Anxiety Disorder Scale (SERGIO-7) SERGIO - 7 SCORES 03/12/2023 04/17/2023 05/16/2023 SERGIO-7 Score 17 17 18 (0-4) minimal anxiety, (5-9) mild anxiety, (10-14) moderate anxiety, (15-21) severe anxiety Patient Health Questionnaire (PHQ-9) PHQ-9 03/12/2023 04/17/2023 05/16/2023 Score 22 22 21 (0-4) minimal depression, (5-9) mild depression, (10-14) moderate depression, (15-19) moderately severe depression, (20-27) severe depression PROMIS Global Health PROMIS Global Health - (T-Scores - the mean of general population = 50. Five points is a clinically meaningful difference.) 01/05/2023 01/05/2023 04/17/2023 Physical T-Score 37.4 37.4 37.4 Mental T-Score 28.4 28.4 28.4 PAST MEDICAL HISTORY Diagnosis Date Attempted suicide (HCC) polysubstance Bipolar depression (HCC) [facility] Gestational diabetes mellitus in Impaired fasting blood sugar 06/2015 a1c 5.7% at diagnosis Iron deficiency anemia Vitamin D deficiency PAST SURGICAL HISTORY Procedure Laterality Date CARPAL TUNNEL bilateral DELIVERY ONLY 08/05/12 LAPAROSCOPY SURG CHOLECYSTECTOMY 07/01/2018 Cholecystectomy, lap Current Outpatient Medications Medication Sig Dispense Refill OLANZapine (ZYPREXA) 20 mg tablet Take 1 tablet by mouth daily at bedtime. 30 tablet 2 traZODone (DESYREL) 100 mg tablet Take 2 tablets by mouth daily at bedtime. 60 tablet 1 norgestimate 0.25 mg-ethinyl estradiol 35 mcg (SPRINTEC) 0.25-35 mg-mcg per tablet Take 1 tablet by mouth once daily. Okay to skip placebo week and start on next package 112 tablet 3 escitalopram oxalate (LEXAPRO) 20 mg tablet Take 2 tablets by mouth once daily. 180 tablet 0 lamoTRIgine (LAMICTAL) 150 mg tablet Take 1 tablet by mouth once daily. 90 tablet 0 omeprazole (PRILOSEC) 40 mg capsule Take 1 capsule by mouth once daily. 30 capsule 11 ibuprofen (MOTRIN) 800 mg tablet Take 1 tablet by mouth every 8 hours as needed for (more content not included)... [facility] 05-16-2023 History of Presen t illness Narrative FOLLOW UP - PSYCHIATRIC PROGRESS NOTE Visit Type:Virtual Visit utilizing two-way audio and video for at least a portion of the visit. Consent for virtual visit obtained verbally. Confidentiality limitations with virtual visits reviewed with the patient and guardian, if present, who have accepted the risk verbally prior to proceeding with encounter. I have communicated my name and active licensure. The patient's identity and physical location were verified at the time of this visit. 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 Reason for Visit: Outpatient follow-up and safety monitoring of previously prescribed psychiatric medication, psychotherapy or other treatment CC: Follow up regarding sleep after trazodone dose increase. HPI: Treatment plan from last visit on 04/18/2023: 1. Increase Trazodone to 200 mg to help with difficulty falling asleep. Will notify if it is helping in 2 weeks by sending a [employer] message. 2. Continue the rest of the psychiatric medications at the same dose. 3. Patient said she will schedule and complete EKG for monitoring purposes in 1 week. 4. Discussed incorporating stretching and yoga prior to bedtime. 5. Patient would also like to incorporate walking in her routine 3 times a week. 6. Notify provider when her insurance has been updated so we can start the referral process for ECT. 7. Encouraged to also schedule an appointment with a therapist. Today Cheryl shares that things have been the same. Struggles with falling asleep. Staying with friends currently. Has a hard time with her brain not shutting off. Denies any side effects from the trazodone dose. She has not been able to get EKG done. Would like to get it done after thanksgiving. Looks forward to seeing son and her mother since they have reconciled 3 years. She is looking for a job. Has applied to [employer]. She is worried that the background check is taking too long. Has been following up daily. She has been able to walk around a little bit for exercise. Unable to do it as often due to the cold weather. She has tried stretching prior to bedtime. Notices her body relaxing more when she does this. Denies any change in her nicotine use. She changes her cartridge every other day. Denies any marijuana use currently and then states, that might change as it becomes legal on June 02 . Discuss the risks of marijuana use with her mood disorder diagnosis. She does not have an update on insurance change yet. Risks and benefits of the medication, including any black box warnings, were discussed with the patient. Interval Progress: Same PATIENT DATA: Generalized Anxiety Disorder Scale (SERGIO-7) SERGIO - 7 SCORES 03/12/2023 04/17/2023 05/16/2023 SERGIO-7 Score 17 17 18 (0-4) minimal anxiety, (5-9) mild anxiety, (10-14) moderate anxiety, (15-21) severe anxiety Patient Health Questionnaire (PHQ-9) PHQ-9 03/12/2023 04/17/2023 05/16/2023 Score 22 22 21 (0-4) minimal depression, (5-9) mild depression, (10-14) moderate depression, (15-19) moderately severe depression, (20-27) severe depression PROMIS Global Health PROMIS Global Health - (T-Scores - the mean of general population = 50. Five points is a clinically meaningful difference.) 01/05/2023 01/05/2023 04/17/2023 Physical T-Score 37.4 37.4 37.4 Mental T-Score 28.4 28.4 28.4 PAST MEDICAL HISTORY Diagnosis Date Attempted suicide (HCC) polysubstance Bipolar depression (HCC) [facility] Gestational diabetes mellitus in Impaired fasting blood sugar 06/2015 a1c 5.7% at diagnosis Iron deficiency anemia Vitamin D deficiency PAST SURGICAL HISTORY Procedure Laterality Date CARPAL TUNNEL bilateral DELIVERY ONLY 08/05/12 LAPAROSCOPY SURG CHOLECYSTECTOMY 07/01/2018 Cholecystectomy, lap Current Outpatient Medications Medication Sig Dispense Refill OLANZapine (ZYPREXA) 20 mg tablet Take 1 tablet by mouth daily at bedtime. 30 tablet 2 traZODone (DESYREL) 100 mg tablet Take 2 tablets by mouth daily at bedtime. 60 tablet 1 norgestimate 0.25 mg-ethinyl estradiol 35 mcg (SPRINTEC) 0.25-35 mg-mcg per tablet Take 1 tablet by mouth once daily. Okay to skip placebo week and start on next package 112 tablet 3 escitalopram oxalate (LEXAPRO) 20 mg tablet Take 2 tablets by mouth once daily. 180 tablet 0 lamoTRIgine (LAMICTAL) 150 mg tablet Take 1 tablet by mouth once daily. 90 tablet 0 omeprazole (PRILOSEC) 40 mg capsule Take 1 capsule by mouth once daily. 30 capsule 11 ibuprofen (MOTRIN) 800 mg tablet Take 1 tablet by mouth every 8 hours as needed for pain. Take with food. 60 tablet 1 ferrous gluconate 324 mg (37.5 mg iron) tablet Take 1 tablet by mouth twice daily with meals. 60 tablet 11 Ascorbic Acid (VITAMIN C) 1,000 mg tablet Take 1 tablet by mouth once daily. 60 tablet 3 diclofenac (VOLTAREN ARTHRITIS PAIN) 1 % topical gel Apply 2 g to affected area twice daily as needed (joint pain hand or knee). 100 g 1 Cholecalciferol, Vitamin D3, (VITAMIN D-3) 50 mcg (2,000 unit) cap Take 1 capsule by mouth once daily. 30 capsule 11 No current facility-administered medications for this visit. ROS: GENERAL: Negative for malaise, significant weight loss and fever. HEENT: No changes in hearing or vision, no nose bleeds or other nasal problems. RESPIRATORY: Negative for cough, wheezing and shortness of breath. CARDIOVASCULAR: Negative for chest pain, leg swelling and palpitations. GI: Negative for abdominal discomfort, blood in stools or black stools. : Negative for dysuria, frequency and incontinence. MUSCULOSKELETAL: Negative for joint pain or swelling, back pain, and muscle pain. SKIN: Negative for lesions, rash, and itching. HEMATOLOGY/LYMPHOLOGY Negative for prolonged bleeding, bruising easily, and swollen nodes. ENDOCRINE: Negative for cold or heat intolerance, polyuria, polydipsia and goiter. NEURO: Negative for headaches, syncope, seizures and paralysis. PFSH: See HPI VITAL SIGNS: There were no vitals filed for this visit. MENTAL STATUS EXAM: CONSTITUTIONAL: Disheveled ORIENTATION: Person, Place, Time and Situation MEMORY: Recent intact, Remote intact, Immediate intact CONCENTRATION: Normal MOOD: sad AFFECT: Full and appropriate to topic SPEECH : Clear & distinct LANGUAGE : Normal ASSOCIATIONS: Intact THOUGHT PROCESS : Logical, Coherent, and Rational PROGRESSION : There was no evidence of disturbance in thought perception or progression. FUND OF KNOWLEDGE : Appropriate and Adequate SUICIDE: None HOMICIDE: None DATA REVIEWED: Psychiatric scales and Electronic medical record DIAGNOSIS: PRIMARY: Bipolar II disorder Secondary : Panic disorder without agoraphobia Other : Generalized Anxiety Disorder GAF: -60-51 Moderate symptoms or moderate difficulty in social, occupational or school functioning. TREATMENT PLAN: 1. Complete EKG and fasting monitoring lab work. 2. Consider increase in Trazodone after reviewing EKG and lab work. 3. Continue Zyprexa, Trazodone, Lexapro, and Lamictal at the same dose. 4. Schedule an appointment for individual psychotherapy. 5. Notify this provider when she is able to make insurance change so that we can try to get her treatment for ECT. MEDICATION CHANGES: Current medication regimen unchanged. - Reviewed Lamictal titration & risk of severe rash. Instructed to call [facility] if this occurs. Patient denies any involuntary movement related side effects. Follow Up: 4 weeks I spent a total of 35 minutes on the date of the service which included preparing to see the patient, [id number] patient care, completing clinical documentation, obtaining and/or reviewing separately obtained history, counseling and educating the patient/family/caregiver, ordering medications, tests, or procedures, communicating with other HCPs (not separately reported), independently interpreting results (not separately reported), and communicating results to the patient/family/caregiver. ADD ON PSYCHOTHERAPY CODE : No SIGNATURE: Donna Granados APRN.CNP PATIENT NAME: Cheryl Evans DATE: May 16, 2023 TIME: 4:03 PM documented in this encounter [facility] 04-18-2023 Note HNO ID: [id number] Author: Donna Granados APRN.[facility] Service: ? Author Type: Nurse Practitioner Type: Progress Notes Filed: 04/22/2023 12:51 PM Note Text: FOLLOW UP - PSYCHIATRIC PROGRESS NOTE Visit Type:Virtual Visit utilizing two-way audio and video for at least a portion of the visit. Consent for virtual visit obtained verbally. Confidentiality limitations with virtual visits reviewed with the patient and guardian, if present, who have accepted the risk verbally prior to proceeding with encounter. I have communicated my name and active licensure. The patient's identity and physical location were verified at the time of this visit. 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 Reason for Visit: Outpatient follow-up and safety monitoring of previously prescribed psychiatric medication, psychotherapy or other treatment CC: Follow up regarding mood, anxiety, and sleep difficulties. HPI: Plan from last visit: 03/14/2023 Increase Lexapro to address anxiety symptoms. Complete EKG for monitoring purposes. Patient will be contacted when appropriate for a spontaneous urine tox screen. Patient aware. Continue the rest of the psychiatric medications at the same dose. Follow up in 4 to 6 weeks. Today Cheryl shares that she has moved since the last appointment. She has been living at her friend's house. Has been struggling with falling asleep. Tossing and turning before she is able to sleep. Takes 2 to 3 hours to fall asleep. This happens every night. Takes Lexapro at night. Switched it to night but did not notice change in sleep. Has taken Trazodone at 300 mg in the past. It helped her sleep better but caused her to binge eating. She counts in her head prior to bed. It helps clear her head. Discussed amphetamine positive urine drug screen. Patient denies using meth or other amphetamine based medications. In the past, she has also had a positive result for this and had shared with the provider that she had take a friend's Adderall for a job interview. Planning to switch to care source so that she can get ECT covered which were getting denied constantly by her current insurance without good reason. She had gotten a job but it was rescinded after her background check due to previous aggressive history and legal history. She would like to walk during the day. She would go to the walk path near [facility]. Would like to do it 3 days a week. Has a car and will be able to start this. Risks and benefits of the medication, including any black box warnings, were discussed with the patient. Interval Progress: Same PATIENT DATA: Generalized Anxiety Disorder Scale (SERGIO-7) SERGIO - 7 SCORES 11/16/2022 03/12/2023 04/17/2023 SERGIO-7 Score 17 17 17 (0-4) minimal anxiety, (5-9) mild anxiety, (10-14) moderate anxiety, (15-21) severe anxiety Patient Health Questionnaire (PHQ-9) PHQ-9 11/16/2022 03/12/2023 04/17/2023 Score 24 22 22 (0-4) minimal depression, (5-9) mild depression, (10-14) moderate depression, (15-19) moderately severe depression, (20-27) severe depression PROMIS Global Health PROMIS Global Health - (T-Scores - the mean of general population = 50. Five points is a clinically meaningful difference.) 01/05/2023 01/05/2023 04/17/2023 Physical T-Score 37.4 37.4 37.4 Mental T-Score 28.4 28.4 28.4 PAST MEDICAL HISTORY Diagnosis Date Attempted suicide (HCC) polysubstance [facility]HCC[facility] Gestational diabetes mellitus in Impaired fasting blood sugar 06/2015 a1c 5.7% at diagnosis Iron deficiency anemia Vitamin D deficiency PAST SURGICAL HISTORY Procedure Laterality Date CARPAL TUNNEL bilateral DELIVERY ONLY 08/05/12 LAPAROSCOPY SURG CHOLECYSTECTOMY 07/01/2018 Cholecystectomy, lap Current Outpatient Medications Medication Sig Dispense Refill norgestimate 0.25 mg-ethinyl estradiol 35 mcg (SPRINTEC) 0.25-35 mg-mcg per tablet Take 1 tablet by mouth once daily. Okay to skip placebo week and start on next package 112 tablet 3 escitalopram oxalate (LEXAPRO) 20 mg tablet Take 2 tablets by mouth once daily. 180 tablet 0 lamoTRIgine (LAMICTAL) 150 mg tablet Take 1 tablet by mouth once daily. 90 tablet 0 OLANZapine (ZYPREXA) 20 mg tablet Take 1 tablet by mouth daily at bedtime. 30 tablet 2 traZODone (DESYREL) 150 mg tablet Take 1 tablet by mouth daily at bedtime. 30 tablet 1 omeprazole (PRILOSEC) 40 mg capsule Take 1 capsule by mouth once daily. 30 capsule 11 ibuprofen (MOTRIN) 800 mg tablet Take 1 tablet by mouth every 8 hours as needed for pain. Take with food. 60 tablet 1 ferrous gluconate 324 mg (37.5 mg iron) tablet Take 1 tablet by mouth twice daily with meals. 60 tablet 11 Ascorbic Acid (VITAMIN C) 1,000 (more content not included)... [facility] 04-18-2023 History of Presen t illness Narrative FOLLOW UP - PSYCHIATRIC PROGRESS NOTE Visit Type:Virtual Visit utilizing two-way audio and video for at least a portion of the visit. Consent for virtual visit obtained verbally. Confidentiality limitations with virtual visits reviewed with the patient and guardian, if present, who have accepted the risk verbally prior to proceeding with encounter. I have communicated my name and active licensure. The patient's identity and physical location were verified at the time of this visit. 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 Reason for Visit: Outpatient follow-up and safety monitoring of previously prescribed psychiatric medication, psychotherapy or other treatment CC: Follow up regarding mood, anxiety, and sleep difficulties. HPI: Plan from last visit: 03/14/2023 Increase Lexapro to address anxiety symptoms. Complete EKG for monitoring purposes. Patient will be contacted when appropriate for a spontaneous urine tox screen. Patient aware. Continue the rest of the psychiatric medications at the same dose. Follow up in 4 to 6 weeks. Today Cheryl shares that she has moved since the last appointment. She has been living at her friend's house. Has been struggling with falling asleep. Tossing and turning before she is able to sleep. Takes 2 to 3 hours to fall asleep. This happens every night. Takes Lexapro at night. Switched it to night but did not notice change in sleep. Has taken Trazodone at 300 mg in the past. It helped her sleep better but caused her to binge eating. She counts in her head prior to bed. It helps clear her head. Discussed amphetamine positive urine drug screen. Patient denies using meth or other amphetamine based medications. In the past, she has also had a positive result for this and had shared with the provider that she had take a friend's Adderall for a job interview. Planning to switch to care source so that she can get ECT covered which were getting denied constantly by her current insurance without good reason. She had gotten a job but it was rescinded after her background check due to previous aggressive history and legal history. She would like to walk during the day. She would go to the walk path [facility]. Would like to do it 3 days a week. Has a car and will be able to start this. Risks and benefits of the medication, including any black box warnings, were discussed with the patient. Interval Progress: Same PATIENT DATA: Generalized Anxiety Disorder Scale (SERGIO-7) SERGIO - 7 SCORES 11/16/2022 03/12/2023 04/17/2023 SERGIO-7 Score 17 17 17 (0-4) minimal anxiety, (5-9) mild anxiety, (10-14) moderate anxiety, (15-21) severe anxiety Patient Health Questionnaire (PHQ-9) PHQ-9 11/16/2022 03/12/2023 04/17/2023 Score 24 22 22 (0-4) minimal depression, (5-9) mild depression, (10-14) moderate depression, (15-19) moderately severe depression, (20-27) severe depression PROMIS Global Health PROMIS Global Health - (T-Scores - the mean of general population = 50. Five points is a clinically meaningful difference.) 01/05/2023 01/05/2023 04/17/2023 Physical T-Score 37.4 37.4 37.4 Mental T-Score 28.4 28.4 28.4 PAST MEDICAL HISTORY Diagnosis Date Attempted suicide (HCC) polysubstance Bipolar depression (HCC) [facility] Gestational diabetes mellitus in Impaired fasting blood sugar 06/2015 a1c 5.7% at diagnosis Iron deficiency anemia Vitamin D deficiency PAST SURGICAL HISTORY Procedure Laterality Date CARPAL TUNNEL bilateral DELIVERY ONLY 08/05/12 LAPAROSCOPY SURG CHOLECYSTECTOMY 07/01/2018 Cholecystectomy, lap Current Outpatient Medications Medication Sig Dispense Refill norgestimate 0.25 mg-ethinyl estradiol 35 mcg (SPRINTEC) 0.25-35 mg-mcg per tablet Take 1 tablet by mouth once daily. Okay to skip placebo week and start on next package 112 tablet 3 escitalopram oxalate (LEXAPRO) 20 mg tablet Take 2 tablets by mouth once daily. 180 tablet 0 lamoTRIgine (LAMICTAL) 150 mg tablet Take 1 tablet by mouth once daily. 90 tablet 0 OLANZapine (ZYPREXA) 20 mg tablet Take 1 tablet by mouth daily at bedtime. 30 tablet 2 traZODone (DESYREL) 150 mg tablet Take 1 tablet by mouth daily at bedtime. 30 tablet 1 omeprazole (PRILOSEC) 40 mg capsule Take 1 capsule by mouth once daily. 30 capsule 11 ibuprofen (MOTRIN) 800 mg tablet Take 1 tablet by mouth every 8 hours as needed for pain. Take with food. 60 tablet 1 ferrous gluconate 324 mg (37.5 mg iron) tablet Take 1 tablet by mouth twice daily with meals. 60 tablet 11 Ascorbic Acid (VITAMIN C) 1,000 mg tablet Take 1 tablet by mouth once daily. 60 tablet 3 diclofenac (VOLTAREN ARTHRITIS PAIN) 1 % topical gel Apply 2 g to affected area twice daily as needed (joint pain hand or knee). 100 g 1 Cholecalciferol, Vitamin D3, (VITAMIN D-3) 50 mcg (2,000 unit) cap Take 1 capsule by mouth once daily. 30 capsule 11 No current facility-administered medications for this visit. ROS: See HPI PFSH: See HPI VITAL SIGNS: There were no vitals filed for this visit. MENTAL STATUS EXAM: CONSTITUTIONAL: Casually dressed ORIENTATION: Person, Place, Time and Situation MEMORY: Recent intact, Remote intact, Immediate intact CONCENTRATION: Normal MOOD: sad AFFECT: Full and appropriate to topic SPEECH : Clear & distinct LANGUAGE : Normal ASSOCIATIONS: Intact THOUGHT PROCESS : Logical, Coherent, and Rational PROGRESSION : There was no evidence of disturbance in thought perception or progression. FUND OF KNOWLEDGE : Appropriate and Adequate SUICIDE: None HOMICIDE: None DATA REVIEWED: Psychiatric scales, Labs, and Electronic medical record DIAGNOSIS: PRIMARY: Generalized Anxiety Disorder , Panic attacks Secondary : Bipolar II disorder Other : Occasionally marijuana use, amphetamine use outside of prescription. GAF: -60-51 Moderate symptoms or moderate difficulty in social, occupational or school functioning. TREATMENT PLAN: 1. Increase Trazodone to 200 mg to help with difficulty falling asleep. Will notify if it is helping in 2 weeks by sending a [employer] message. 2. Continue the rest of the psychiatric medications at the same dose. 3. Patient said she will schedule and complete EKG for monitoring purposes in 1 week. 4. Discussed incorporating stretching and yoga prior to bedtime. 5. Patient would also like to incorporate walking in her routine 3 times a week. 6. Notify provider when her insurance has been updated so we can start the referral process for ECT. 7. Encouraged to also schedule an appointment with a therapist. MEDICATION CHANGES: Increase in trazodone dose. Follow Up: 4 to 6 weeks or sooner if needed I spent a total of 38 minutes on the date of the service which included preparing to see the patient, [id number] patient care, completing clinical documentation, obtaining and/or reviewing separately obtained history, counseling and educating the patient/family/caregiver, ordering medications, tests, or procedures, and independently interpreting results (not separately reported). ADD ON PSYCHOTHERAPY CODE : No SIGNATURE: Donna Granados APRN.CNP PATIENT NAME: Cheryl Evans DATE: April 18, 2023 TIME: 1:04 PM documented in this encounter [facility] 03-22-2023 Note HNO ID: [id number] Author: Donna Granados APRN.CNP Service: ? Author Type: Nurse Practitioner Type: Progress Notes Filed: 03/22/2023 8:06 AM Note Text: Urine tox screen ordered due to patient reporting abstinence from marijuana use and wanting to have some PRN benzodiazepines to manage panic symptoms. [facility] 03-15-2023 Miscellaneous Notes Patient has been identified by name and date of : Yes Patient phones for refill(s): Requested Prescriptions Pending Prescriptions Disp Refills norgestimate 0.25 mg-ethinyl estradiol 35 mcg (SPRINTEC) 0.25-35 mg-mcg per tablet 112 tablet 3 Sig: Take 1 tablet by mouth once daily. Okay to skip placebo week and start on next package Date of last office visit in primary care: 03/29/2022 Please advise. Thank you. Tasia Rand LPN documented in this encounter [facility] 03-14-2023 Note HNO ID: [id number] Author: Donna Granados APRN.B[facility] UP Service: ? Author Type: Nurse Practitioner Type: Progress Notes Filed: 03/14/2023 9:30 PM Note Text: PSYC FOLLOW UP - PSYCHIATRIC PROGRESS NOTE DIAGNOSIS: Bipolar Disorder Generalized Anxiety Disorder Panic attacks GAF: -60-51 Moderate symptoms or moderate difficulty in social, occupational or school functioning. TREATMENT PLAN: Increase Lexapro to address anxiety symptoms. Complete EKG for monitoring purposes. Patient will be contacted when appropriate for a spontaneous urine tox screen. Patient aware. Continue the rest of the psychiatric medications at the same dose. Follow up in 4 to 6 weeks. Medication Update: Lexapro 20 mg - take 2 tablets once daily. Continue the rest of the psychiatric medications at the same dose. The effects and side effects of all the medications were reviewed in detail with the patient. She denies any involuntary movement related side effect. Patient is in agreement with the treatment plan and aware to reach out with any questions, concerns, or worsening of symptoms prior to the next appointment. CC: Follow up for psychiatric medication management. With the patient consent, visit was performed virtually. I have communicated my name and active licensure. The patient's identity and physical location were verified at the time of this visit. 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 HPI: Cheryl A Lover is a 37 year old Female with a history of SERGIO and Bipolar Disorder presenting today for follow-up. Date of last visit: 11/18/2022 Plan from last visit: Increase Lexapro to address anxiety and panic symptoms. Have recommended scheduling an appointment for EKG. Continue Zyprexa, Trazodone, Lamictal, and Prazosin at the same dose. Would recommend only spontaneous and unplanned urine tox screen for the patient in the future. Would not recommend restarting benzodiazepines use at this time. Patient is waiting for ECT treatments to be approved by her insurance. Follow up in February. Today Cheryl shares that she is going to be moving out. Feels that it is a good thing as its a toxic environment currently for her. She is going to move in with a friend who has a spare room. She is going to start another job. Lost last job due to increase in anxiety. 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 I am anxious all the time and depressed all the time . She has been getting so anxious which makes it hard for her to go out anywhere. She has been taking the Lexapro at 30 mg dose. Feels that it helps with depression. Has been consistent in taking her medications and denies side effect. She has been struggling to fall asleep. Shares that anxiety is keeping her up. Interval Progress: Slightly improved Risks and benefits of the medication, including any black box warnings, were discussed with the patient. Social History: See HPI PATIENT DATA: Generalized Anxiety Disorder Scale (SERGIO-7) SERGIO - 7 SCORES 10/24/2022 11/16/2022 03/12/2023 SERGIO-7 Score 13 17 17 (0-4) minimal anxiety, (5-9) mild anxiety, (10-14) moderate anxiety, (15-21) severe anxiety Patient Health Questionnaire (PHQ-9) PHQ-9 10/24/2022 11/16/2022 03/12/2023 Score 23 24 22 (0-4) minimal depression, (5-9) mild depression, (10-14) moderate depression, (15-19) moderately severe depression, (20-27) severe depression ROS: General: Negative for fever, malaise, unintentional weight loss HEENT: Negative for recent changes in vision or hearing, no nasal drainage Respiratory: Negative for cough, wheezing or SOB Cardiovascular: Negative for chest pain GI: Negative for nausea, vomiting, change in bowel habits MUSCULOSKELETAL: Negative for acute back or joint pain SKIN: Negative for rash NEURO: Negative for headaches, seizures, focal neurological deficits All other systems negative. VITAL SIGNS: BP Temp Pulse Resp SpO2 MENTAL STATUS EXAMINATION: Appearance: Appropriately groomed, appears stated age Behavior: Appropriately engaged Psychomotor: No psychomotor agitation Cognition Level of Consciousness: Awake and alert. No fluctuation in wakefulness. Orientation: Grossly oriented Memory: Intact Attention/Concentration: Good Fund of Knowledge: Able to demonstrate an awareness of current events. Mood: Anxious, Sad Affect: Congruent to mood Speech/Language: Appropriate tone, prosody, oneal, phonetics, and syntax Thought Form: Goal-directed. No loosening of associations. Thought Content: No delusions noted or endorsed. Perceptual Disturbances: Did not appear to respond to auditory stimuli. Safety: Suicidal Ideations: No suicidal ideation, intent or plan. Homicidal Ideations: No homicidal ideation, intent or plan. Insigh (more content not included)... [facility] 03-14-2023 Instructions Donna Granados APRN.CNP - 03/14/2023 2:00 PM EDT Calixto Kauffman, It was good to talk with you today. Below is a summary of the plan that we discussed during your appointment for reference. Of course, if you have any questions or concerns do not hesitate to reach out to me via a message or call. Donna Riddle APRN.CNP PLAN AND FOLLOW UP: YOU SHOULD SEEK IMMEDIATE MEDICAL ATTENTION AT THE NEAREST EMERGENCY DEPARTMENT OR BY CALLING 911, IF ANY OF THE FOLLOWING OCCURS: - New or worsening thoughts of harming yourself (suicidal thoughts) or others (homicidal thoughts) - Not feeling safe at home or worrying about your ability to remain safe at home If you are having thoughts of harming yourself or others, then you can: - Call the National Suicide Hotline at 1-813-CCYPDXT ( ) or 0-216-030-TALK (8140) - Text 9AUZB to 116879 Medication Update: Lexapro 20 mg - take 2 tablets once daily. Continue the rest of the psychiatric medications at the same dose. Other: Make an appointment to get EKG done. Next appointment: --Schedule in 4 to 6 weeks or sooner if needed -- You may call the department appointment line at [phone] to schedule your appointment. -- Please call my nurse Cassy at [phone] or send me a message in [employer] with any questions or concerns between appointments. documented in this encounter [facility] 03-14-2023 History of Presen t illness Narrative Images from the original note were not included. PSYC FOLLOW UP - PSYCHIATRIC PROGRESS NOTE DIAGNOSIS: Bipolar Disorder Generalized Anxiety Disorder Panic attacks GAF: -60-51 Moderate symptoms or moderate difficulty in social, occupational or school functioning. TREATMENT PLAN: Increase Lexapro to address anxiety symptoms. Complete EKG for monitoring purposes. Patient will be contacted when appropriate for a spontaneous urine tox screen. Patient aware. Continue the rest of the psychiatric medications at the same dose. Follow up in 4 to 6 weeks. Medication Update: Lexapro 20 mg - take 2 tablets once daily. Continue the rest of the psychiatric medications at the same dose. The effects and side effects of all the medications were reviewed in detail with the patient. She denies any involuntary movement related side effect. Patient is in agreement with the treatment plan and aware to reach out with any questions, concerns, or worsening of symptoms prior to the next appointment. CC: Follow up for psychiatric medication management. With the patient consent, visit was performed virtually. I have communicated my name and active licensure. The patient's identity and physical location were verified at the time of this visit. 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 HPI: Cheryl A Lover is a 37 year old Female with a history of SERGIO and Bipolar Disorder presenting today for follow-up. Date of last visit: 11/18/2022 Plan from last visit: Increase Lexapro to address anxiety and panic symptoms. Have recommended scheduling an appointment for EKG. Continue Zyprexa, Trazodone, Lamictal, and Prazosin at the same dose. Would recommend only spontaneous and unplanned urine tox screen for the patient in the future. Would not recommend restarting benzodiazepines use at this time. Patient is waiting for ECT treatments to be approved by her insurance. Follow up in February. Today Cheryl shares that she is going to be moving out. Feels that it is a good thing as its a toxic environment currently for her. She is going to move in with a friend who has a spare room. She is going to start another job. Lost last job due to increase in anxiety. 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 I am anxious all the time and depressed all the time . She has been getting so anxious which makes it hard for her to go out anywhere. She has been taking the Lexapro at 30 mg dose. Feels that it helps with depression. Has been consistent in taking her medications and denies side effect. She has been struggling to fall asleep. Shares that anxiety is keeping her up. Interval Progress: Slightly improved Risks and benefits of the medication, including any black box warnings, were discussed with the patient. Social History: See HPI PATIENT DATA: Generalized Anxiety Disorder Scale (SERGIO-7) SERGIO - 7 SCORES 10/24/2022 11/16/2022 03/12/2023 SERGIO-7 Score 13 17 17 (0-4) minimal anxiety, (5-9) mild anxiety, (10-14) moderate anxiety, (15-21) severe anxiety Patient Health Questionnaire (PHQ-9) PHQ-9 10/24/2022 11/16/2022 03/12/2023 Score 23 24 22 (0-4) minimal depression, (5-9) mild depression, (10-14) moderate depression, (15-19) moderately severe depression, (20-27) severe depression ROS: General: Negative for fever, malaise, unintentional weight loss HEENT: Negative for recent changes in vision or hearing, no nasal drainage Respiratory: Negative for cough, wheezing or SOB Cardiovascular: Negative for chest pain GI: Negative for nausea, vomiting, change in bowel habits MUSCULOSKELETAL: Negative for acute back or joint pain SKIN: Negative for rash NEURO: Negative for headaches, seizures, focal neurological deficits All other systems negative. VITAL SIGNS: BP Temp Pulse Resp SpO2 MENTAL STATUS EXAMINATION: Appearance: Appropriately groomed, appears stated age Behavior: Appropriately engaged Psychomotor: No psychomotor agitation Cognition Level of Consciousness: Awake and alert. No fluctuation in wakefulness. Orientation: Grossly oriented Memory: Intact Attention/Concentration: Good Fund of Knowledge: Able to demonstrate an awareness of current events. Mood: Anxious, Sad Affect: Congruent to mood Speech/Language: Appropriate tone, prosody, oneal, phonetics, and syntax Thought Form: Goal-directed. No loosening of associations. Thought Content: No delusions noted or endorsed. Perceptual Disturbances: Did not appear to respond to auditory stimuli. Safety: Suicidal Ideations: No suicidal ideation, intent or plan. Homicidal Ideations: No homicidal ideation, intent or plan. Insight: Appropriate Judgment: Appropriate I spent a total of 35 minutes on the date of the service which included preparing to see the patient, [id number] patient care, completing clinical documentation, and counseling and educating the patient/family/caregiver, ordering medications/labs. Donna Granados APRN.CNP March 14, 2023 1:38 PM This note was partially generated using [employer] voice recognition system. Note was reviewed for accuracy. There may be minor misspellings or grammar miscues with Dragon voice recognition. documented in this encounter [facility] 01-05-2023 Miscellaneous Notes Refill sent. Mychart sent. documented in this encounter [facility] 11-18-2022 Note HNO ID: [id number] Author: Donna Granados APRN.JUANY Service: ? Author Type: Nurse Practitioner Type: Progress Notes Filed: 11/18/2022 11:23 AM Note Text: PSYC FOLLOW UP - PSYCHIATRIC PROGRESS NOTE DIAGNOSIS: History of marijuana use Bipolar II disorder Panic disorder without agoraphobia. Unprescribed Amphetamine noted in her urine tox screen. Cluster b traits GAF: -60-51 Moderate symptoms or moderate difficulty in social, occupational or school functioning. TREATMENT PLAN: Increase Lexapro to address anxiety and panic symptoms. Have recommended scheduling an appointment for EKG. Continue Zyprexa, Trazodone, Lamictal, and Prazosin at the same dose. Would recommend only spontaneous and unplanned urine tox screen for the patient in the future. Would not recommend restarting benzodiazepines use at this time. Patient is waiting for ECT treatments to be approved by her insurance. Follow up in February. Medication Update: Lexapro 20 mg - take 1 and half tablet once daily. Continue the rest of the psychiatric medications at the same dose. The effects and side effects of all the medications were reviewed in detail with the patient. She denies any involuntary movement related side effects. Patient is in agreement with the treatment plan and aware to reach out with any questions, concerns, or worsening of symptoms prior to the next appointment. CC: Follow up regarding psychiatric medication management. With the patient consent, visit was performed virtually. I have communicated my name and active licensure. The patient's identity and physical location were verified at the time of this visit. 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 HPI: Cheryl Estrella Lover is a 37 year old Female with a history of marijuana use, bipolar disorder, and panic disorder presenting today for follow-up. Date of last visit: 10/28/2022 Plan from last visit: Increase Zyprexa to address her sleep and anxiety concerns. Continue Lamictal, Lexapro, Trazodone, and Minipress at the same dose. Work on appealing for the ECT coverage. Complete urine tox screen as well as EKG for monitoring purposes. Follow up in 3 weeks. Today Cheryl shares that she feels crappy . Her mother was in the hospital last week for 6 days due to a fall. She stayed at her mother's house to help. She has been concerned about worsening anxiety of leaving the house. She is upset with her insurance company for not approving the ECT treatments. They have appealed the request. She denies any side effects from the Zyprexa. She notices that she is tossing and turning at night. She is no longer using nicotine. She takes her Zyprexa 8 to 9 pm and falls asleep after 1 hour or more of tossing and turning. She wakes up around 8 to 9 am. She does not have problem falling asleep if she wakes up at night. Feels groggy and tired in the morning. I have never done well with therapy . She has not been able to connect with anyone after her provider left from the counseling center. Does not wish to engage in therapy currently to manage anxiety. Has tried IOP at [place] and did not find it to be helpful and does not wish to engage in a group setting. We reviewed her urine lab work results. It showed positive for Amphetamines. She reports that she took 1 left over ADHD medication from 2021 as she was having difficulty focusing on job applications. We discussed that such urine tox results prevent this provider from prescribing any benzodiazepines which she has been actively requesting. Initially we had discontinued xanax due to patient's consistent marijuana use. Patient reports that she is no longer using marijuana or nicotine. Interval Progress: Same Risks and benefits of the medication, including any black box warnings, were discussed with the patient. Social History: See HPI PATIENT DATA: Generalized Anxiety Disorder Scale (SERGIO-7) SERGIO - 7 SCORES 09/30/2022 10/24/2022 11/16/2022 SERGIO-7 Score 17 13 17 (0-4) minimal anxiety, (5-9) mild anxiety, (10-14) moderate anxiety, (15-21) severe anxiety Patient Health Questionnaire (PHQ-9) PHQ-9 09/30/2022 10/24/2022 11/16/2022 Score 25 23 24 (0-4) minimal depression, (5-9) mild depression, (10-14) moderate depression, (15-19) moderately severe depression, (20-27) severe depression ROS: See HPI General: Negative for fever, malaise, unintentional weight loss HEENT: Negative for recent changes in vision or hearing, no nasal drainage Respiratory: Negative for cough, wheezing or SOB Cardiovascular: Negative for chest pain GI: Negative for nausea, vomiting, change in bowel habits MUSCULOSKELETAL: Negative for acute back or joint pain SKIN: Negative for rash NEURO: Negative for headaches, seizures, focal neurologica (more content not included)... [facility] 10-28-2022 Note HNO ID: [id number] Author: Donna Granados APRN.BEND UP Service: ? Author Type: Nurse Practitioner Type: Progress Notes Filed: 10/28/2022 10:14 PM Note Text: PSYC FOLLOW UP - PSYCHIATRIC PROGRESS NOTE DIAGNOSIS: Bipolar 2 disorder Panic disorder without agoraphobia History of marijuana use GAF: -60-51 Moderate symptoms or moderate difficulty in social, occupational or school functioning. TREATMENT PLAN: Increase Zyprexa to address her sleep and anxiety concerns. Continue Lamictal, Lexapro, Trazodone, and Minipress at the same dose. Work on appealing for the ECT coverage. Complete urine tox screen as well as EKG for monitoring purposes. Follow up in 3 weeks. Medication Update: Zyprexa 20 mg - take 1 tablet every night at bedtime. 2. Continue the rest of the psychiatric medications at the same dose. The effects and side effects of all the medications were reviewed in detail with the patient. She denies any involuntary movement related side effects. Patient is in agreement with the treatment plan and aware to reach out with any questions, concerns, or worsening of symptoms prior to the next appointment. CC: With the patient consent, visit was performed virtually. I have communicated my name and active licensure. The patient's identity and physical location were verified at the time of this visit. 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 HPI: Cheryl Estrella Lover is a 37 year old Female with a history of Bipolar disorder and panic disorder presenting today for follow-up. Date of last visit: 09/27/2022 Plan from last visit: Increase Zyprexa to address her sleep and mood concerns. Continue Lamictal, Lexapro, Trazodone, and Minipress at the same dose. Complete intake for ECT on . Complete urine tox screen as well as EKG. Follow up in 4 weeks. Today Cheryl shares that her insurance denied her coverage for ECT. They are trying to appeal it. This has impacted her mood a lot. She is concerned about her worsening depression due to this. Discussed calling her insurance to appeal and advocate for the coverage. She is still tossing and turning an hour or more before falling asleep. Once she falls asleep, she is able to stay asleep. She is getting about 6 to 7 hours of sleep. She is no longer experiencing nightmares due to the prazosin. Anxiety has been high especially trying to figure out the ECT. Requests restarting the use of her PRN xanax. Aware that it will not be prescribed while uses marijuana. Patient shares that she has been sober from marijuana and will complete urine tox screen. Interval Progress: Same Risks and benefits of the medication, including any black box warnings, were discussed with the patient. Social History: See HPI PATIENT DATA: Generalized Anxiety Disorder Scale (SERGIO-7) SERGIO - 7 SCORES 09/22/2022 09/30/2022 10/24/2022 SERGIO-7 Score 17 17 13 (0-4) minimal anxiety, (5-9) mild anxiety, (10-14) moderate anxiety, (15-21) severe anxiety Patient Health Questionnaire (PHQ-9) PHQ-9 09/22/2022 09/30/2022 10/24/2022 Score 26 25 23 (0-4) minimal depression, (5-9) mild depression, (10-14) moderate depression, (15-19) moderately severe depression, (20-27) severe depression ROS: General: Negative for fever, malaise, unintentional weight loss HEENT: Negative for recent changes in vision or hearing, no nasal drainage Respiratory: Negative for cough, wheezing or SOB Cardiovascular: Negative for chest pain GI: Negative for nausea, vomiting, change in bowel habits MUSCULOSKELETAL: Negative for acute back or joint pain SKIN: Negative for rash NEURO: Negative for headaches, seizures, focal neurological deficits All other systems negative. VITAL SIGNS: BP Temp Pulse Resp SpO2 MENTAL STATUS EXAMINATION: Appearance: Appropriately groomed, appears stated age Behavior: Appropriately engaged Psychomotor: No psychomotor agitation Cognition Level of Consciousness: Awake and alert. No fluctuation in wakefulness. Orientation: Grossly oriented Memory: Intact Attention/Concentration: Good Fund of Knowledge: Able to demonstrate an awareness of current events. Mood: Sad, anxious Affect: Congruent to mood Speech/Language: Appropriate tone, prosody, oneal, phonetics, and syntax Thought Form: Goal-directed. No loosening of associations. Thought Content: No delusions noted or endorsed. Perceptual Disturbances: Did not appear to respond to auditory stimuli. Safety: Suicidal Ideations: No suicidal ideation, intent or plan. Homicidal Ideations: No homicidal ideation, intent or plan. Insight: Appropriate Judgment: Appropriate I spent a total of 28 minutes on the date of the service which included preparing to see the patient, [id number] patient care, compl (more content not included)... [facility] 10-28-2022 History of Presen t illness Narrative Images from the original note were not included. PSYC FOLLOW UP - PSYCHIATRIC PROGRESS NOTE DIAGNOSIS: Bipolar 2 disorder Panic disorder without agoraphobia History of marijuana use GAF: -60-51 Moderate symptoms or moderate difficulty in social, occupational or school functioning. TREATMENT PLAN: Increase Zyprexa to address her sleep and anxiety concerns. Continue Lamictal, Lexapro, Trazodone, and Minipress at the same dose. Work on appealing for the ECT coverage. Complete urine tox screen as well as EKG for monitoring purposes. Follow up in 3 weeks. Medication Update: Zyprexa 20 mg - take 1 tablet every night at bedtime. 2. Continue the rest of the psychiatric medications at the same dose. The effects and side effects of all the medications were reviewed in detail with the patient. She denies any involuntary movement related side effects. Patient is in agreement with the treatment plan and aware to reach out with any questions, concerns, or worsening of symptoms prior to the next appointment. CC: With the patient consent, visit was performed virtually. I have communicated my name and active licensure. The patient's identity and physical location were verified at the time of this visit. 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 HPI: Cheryl Estrella Lover is a 37 year old Female with a history of Bipolar disorder and panic disorder presenting today for follow-up. Date of last visit: 09/27/2022 Plan from last visit: Increase Zyprexa to address her sleep and mood concerns. Continue Lamictal, Lexapro, Trazodone, and Minipress at the same dose. Complete intake for ECT on . Complete urine tox screen as well as EKG. Follow up in 4 weeks. Today Cheryl shares that her insurance denied her coverage for ECT. They are trying to appeal it. This has impacted her mood a lot. She is concerned about her worsening depression due to this. Discussed calling her insurance to appeal and advocate for the coverage. She is still tossing and turning an hour or more before falling asleep. Once she falls asleep, she is able to stay asleep. She is getting about 6 to 7 hours of sleep. She is no longer experiencing nightmares due to the prazosin. Anxiety has been high especially trying to figure out the ECT. Requests restarting the use of her PRN xanax. Aware that it will not be prescribed while uses marijuana. Patient shares that she has been sober from marijuana and will complete urine tox screen. Interval Progress: Same Risks and benefits of the medication, including any black box warnings, were discussed with the patient. Social History: See HPI PATIENT DATA: Generalized Anxiety Disorder Scale (SERGIO-7) SERGIO - 7 SCORES 09/22/2022 09/30/2022 10/24/2022 SERGIO-7 Score 17 17 13 (0-4) minimal anxiety, (5-9) mild anxiety, (10-14) moderate anxiety, (15-21) severe anxiety Patient Health Questionnaire (PHQ-9) PHQ-9 09/22/2022 09/30/2022 10/24/2022 Score 26 25 23 (0-4) minimal depression, (5-9) mild depression, (10-14) moderate depression, (15-19) moderately severe depression, (20-27) severe depression ROS: General: Negative for fever, malaise, unintentional weight loss HEENT: Negative for recent changes in vision or hearing, no nasal drainage Respiratory: Negative for cough, wheezing or SOB Cardiovascular: Negative for chest pain GI: Negative for nausea, vomiting, change in bowel habits MUSCULOSKELETAL: Negative for acute back or joint pain SKIN: Negative for rash NEURO: Negative for headaches, seizures, focal neurological deficits All other systems negative. VITAL SIGNS: BP Temp Pulse Resp SpO2 MENTAL STATUS EXAMINATION: Appearance: Appropriately groomed, appears stated age Behavior: Appropriately engaged Psychomotor: No psychomotor agitation Cognition Level of Consciousness: Awake and alert. No fluctuation in wakefulness. Orientation: Grossly oriented Memory: Intact Attention/Concentration: Good Fund of Knowledge: Able to demonstrate an awareness of current events. Mood: Sad, anxious Affect: Congruent to mood Speech/Language: Appropriate tone, prosody, oneal, phonetics, and syntax Thought Form: Goal-directed. No loosening of associations. Thought Content: No delusions noted or endorsed. Perceptual Disturbances: Did not appear to respond to auditory stimuli. Safety: Suicidal Ideations: No suicidal ideation, intent or plan. Homicidal Ideations: No homicidal ideation, intent or plan. Insight: Appropriate Judgment: Appropriate I spent a total of 28 minutes on the date of the service which included preparing to see the patient, [id number]-[id number] patient care, completing clinical documentation, and counseling and educating the patient/family/caregiver, ordering medications/labs. Donna Granados APRN.JUANY October 28, 2022 11:04 AM This note was partially generated using [employer] voice recognition system. Note was reviewed for accuracy. There may be minor misspellings or grammar miscues with [employer] voice recognition. documented in this encounter [facility] 10-01-2022 Miscellaneous Notes Summary: ECT PA Faxed PA and associated clinicals to [facility] at 1219. Awaiting response documented in this encounter [facility] 09-30-2022 Instructions Donald Velásquez APRN.CNP - 09/30/2022 11:52 AM EDT [place] Kauff[place], We recommend the following adjustments to your medication while getting ECT. Please DO NOT TAKE the following medications on days before an ECT treatment: Lamotrigine These medications have anticonvulsant properties. It will be easier to induce a good seizure when you do not take part of your usual medication dose. Lamotrigine [place] We recommended you do not take lithium for 24 hours before each ECT treatment to reduce the risk of having a long seizure or confusion. Please TAKE the following medications the morning of ECT with a small sip of water: Lexapro After returning home from ECT, take all of your medications as you usually do: Zyprexa, Trazodone, Prazosin Let us know if there are any changes to your medications before you start ECT or while you are getting ECT. If you have questions or concerns about your ECT upcoming treatments, then do not hesitate to reach out to the ECT Coordinator at . Donald Velásquez APRN.CNP & Arash Jean Baptiste MD Psychiatric Nurse Practitioner Director of the Electroconvulsive Therapy Service documented in this encounter [facility] 09-30-2022 History and physical note Summary: TRD Initial Evaluation Images from the original note were not included. PSYCHIATRY ELECTROCONVULSIVE THERAPY INITIAL EVALUATION Patient was seen in person for an initial evaluation. All information is from patient report except when noted. This evaluation is NOT intended for forensic, disability or child custody purposes. AGE: [age] year old RACE: White REFERRAL SOURCE: Psychiatrist - Donna Granados CNP (CC). Last visit 08/16/22 CHIEF COMPLAINT: Treatment resistant depression. HPI: Cheryl is a 37 year old female with a history of Bipolar depression (Bipolar II), SERGIO.Referred to clinic by psych provider for evaluation for ECT. Current medications are: Lamotrigine 150mg BID; Trazodone 200mg QHS; Zyprexa 10mg QHS; Lexapro 20mg, Prazosin 2mg QHS SOCIAL HISTORY: Patient is the youngest of 2 children. The patient was born and raised in [place]. The patient completed Some college. The patient described their childhood as 'ideal'. The patient lives with a roommate in an house (owned by roommate). Feels safe. No guns The patient has 1 child (10yrs). Shared custody with father. 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 No disability. Service: None Legal: 18 - 2 charges of drug trafficking. No shelter time. No DUI/TRAVON Trauma/Abuse: Denies Psychosocial Supports: Mom, father of son. === FAMILY PSYCHIATRIC HISTORY: The patient has the following family members with a history of mental illness: Brother - aspergers; Mother- Depression; Father-Bipolar The patient has the following family members with a history of addiction: Brother, father, grandfather The patient has the following family members with a history of completed suicide: None === SUBSTANCE USE HISTORY: Nicotine: Vape pen 'about every 5 minutes'. Quit cigs 1.5 years ago. 2 packs daily. Caffeine: Monica, 3x/day. Hx of caffeine withdrawal Alcohol: Positive for previous heavy use history. Has since mostly abstained. 3 drinks in last 1.5yrs. Benzodiazepines: Positive for previous use history (RX). Marijuana: Current usage is 0 / day. Quit 1 week ago. Wasn't helping for nerve pain or anxiety. Cocaine: Positive for previous use history. Last use 20yrs ago Opioids: No history of use or dependence Psychedelics: No history of use or dependence Esketamine/Ketamine: No history of use or dependence Past/Current treatments: N/A === PSYCHIATRIC HISTORY: Length of current depressive episode: 'It's been continuous for years' Age at first depressive episode: Unsure Lifetime # of depressive episodes: Multiple Last Hospitalization: 1) [facility] via OD on Rx psych meds in 2017 2) 2017 @ [facility] for SI (pink slipped from crisis line) 3) 2021 - [facility] for SI # of past suicide attempts and methods used:OD in 2017 Intensive outpatient program: 2018 at [place] - didn't think it was helpful Residential treatment: Denies Prior Diagnosis: Anxiety Disorder, Bipolar Affective Disorder, Borderline Personality Disorder, and Panic Disorder Prior Provider: Followed by PCP Frerdick Phillips. Referred to current psych provider. Therapist: Followed at [facility] (practice) by Evans. Monthly check-in Past psychotherapy experience: Extensive Current Revival Clerk: None Electroconvulsive therapy (ECT): Denies Transcranial magnetic stimulation (TMS): Denies Vagal Nerve Stimulator (VNS): Denies Ketamine: Denies Esketamine: Denies Has patient been offered an MAOI previously? Denies If patient has not been on MAOI and has been offered one, what is the reason or concern for not initiating? 'I've tried so many medications, I want to try something different.' === Current Outpatient Medications Medication Sig Dispense Refill lamoTRIgine (LAMICTAL) 150 mg tablet Take 1 tablet by mouth once daily. 90 tablet 0 OLANZapine (ZYPREXA) 15 mg tablet Take 1 tablet by mouth daily at bedtime. 30 tablet 1 escitalopram oxalate (LEXAPRO) 20 mg tablet Take 1 tablet by mouth once daily. 90 tablet 0 traZODone (DESYREL) 100 mg tablet Take 2 tablets by mouth daily at bedtime. 60 tablet 1 prazosin (MINIPRESS) 2 mg cap Take 1 capsule by mouth daily at bedtime. 30 capsule 2 norgestimate 0.25 mg-ethinyl estradiol 35 mcg (SPRINTEC) 0.25-35 mg-mcg per tablet Take 1 tablet by mouth once daily. Okay to skip placebo week and start on next package 112 tablet 3 omeprazole (PRILOSEC) 40 mg capsule Take 1 capsule by mouth once daily. 30 capsule 11 ibuprofen (MOTRIN) 800 mg tablet Take 1 tablet by mouth every 8 hours as needed for pain. Take with food. 60 tablet 1 ferrous gluconate 324 mg (37.5 mg iron) tablet Take 1 tablet by mouth twice daily with meals. 60 tablet 11 Ascorbic Acid (VITAMIN C) 1,000 mg tablet Take 1 tablet by mouth once daily. 60 tablet 3 diclofenac (VOLTAREN ARTHRITIS PAIN) 1 % topical gel Apply 2 g to affected area twice daily as needed (joint pain hand or knee). 100 g 1 Cholecalciferol, Vitamin D3, (VITAMIN D-3) 50 mcg (2,000 unit) cap Take 1 capsule by mouth once daily. 30 capsule 11 No current facility-administered medications for this visit. Medications reviewed Past medication trials: Seroquel 100MG qhs - 05/2022 Adderall 20mg BID 01/2022-06/2022 Xanax 1mg PRN 01/2022 - 06/2022 Clonazepam Propranolol 20mg BID -01/2022 Prozac 40mg 09/2021 max dose 80mg Zaleplon 2007 lexapro 2006 - current at 20mg Buspar 5mg BID 10/2017-09/[address] 500mg QHS -10/2017 Haldol 5mg PRN (agitation) -10/2017 Name Trial? Start date End date Maximum dose used Reason for discontinuation (Ineffective, specific side effect, change in insurance, etc) Alprazolam (Xanax) Amitriptyline (Elavil) Y-D/C Amoxapine (Asendin) Amphetamine mixed salts (Adderall) Y-D/C Aripiprazole (Abilify) Y-D/C 'It worked temporarily then lost efficacy' Asenapine (Saphris) Brexpiprazole (Rexulti) Bupropion (Wellbutrin) Y-D/C Buspirone (Buspar) Y-D/C Carbamazepine (Tegretol) N Cariprazine (Vraylar) N Citalopram (Celexa) Y-D/C Chlordiazepoxide Chlorpromazine (Thorazine) Clomipramine (Anafranil) N Clonazepam (Klonopin) Clonidine (Catapres) Clozapine Desipramine (Norpramin) N Desvenlafaxine (Pristiq) Dextromethorphan/bupropion (Auvelity) Diazepam (Valium) Doxepin (Sinequan) Duloxetine (Cymbalta) Escitalopram (Lexapro) Fluoxetine (Prozac) Fluphenazine (Prolixin) Fluvoxamine (Luvox) Haloperidol (Haldol) Guanfacine (Tenex) Iloperidone (Fanapt) Imipramine (Tofranil) Isocarboxazid (Marplan) Lamotrigine (Lamictal) Y-Current Levomilnacipran (Fetzima) [place] Y-D/C Lorazepam (Ativan) Loxapine (Loxitane) Lurasidone (Latuda) Y-D/C Adverse reaction - cant recall Maprotiline (Ludiomil) Methylfolate (Deplin) Methylphenidate (Ritalin) Mirtazapine (Remeron) Nefazodone Nortriptyline (Pamelor) Olanzapine (Zyprexa) Y-Current Oxcarbazepine (Trileptal) N Paliperidone (Invega) Paroxetine (Paxil) Perphenazine (Trilafon) Phenelzine (Nardil) Risperidone (Risperdal) Quetiapine (Seroquel) Selegiline (oral or EMSAM patch) N Sertraline (Zoloft) Y-D/C Temazepam Thyroid hormone [Triiodothyronine (T3)] Tranylcypromine (Parnate) Trazodone Y-Current Triazolam (Halcion) Trimipramine (Surmontil) Valproate (Depakote) Y-D/C Venlafaxine (Effexor) Y-D/C Vilazodone (Viibryd) Vortioxetine (Trintellix) Ziprasidone (Geodon) Other: Other: Other: Other: Other: Other: === PAST MEDICAL HISTORY Diagnosis Date Attempted suicide (HCC) polysubstance Bipolar depression (HCC) [facility] Camelia Whyte Gestational diabetes mellitus in Impaired fasting blood sugar 06/2015 a1c 5.7% at diagnosis Iron deficiency anemia Vitamin D deficiency Electroconvulsive Therapy Relative Contraindications Checklist Present Absent Anesthesiology History of malignant hyperthermia [] [x] Pseudocholinesterase deficiency [] [x] Cardiology Arrhythmias (e.g., atrial fibrillation) [] [x] Decompensating heart failure [] [x] History of heart transplant [] [x] Hypertension (severe) [] [x] Large vascular aneurysms (e.g., aortic aneurysm) [] [x] Recent myocardial infarction, particularly if sequelae are present [] [x] Significant valvular abnormality (e.g., aortic stenosis) [] [x] Unstable angina [] [x] Dermatology Scalp disease [] [x] Dentistry Poor dentition (e.g., loose or fragile teeth) [] [x] Endocrinology Insulin-dependent diabetes mellitus [] [x] Neurology/Neurosurgery Cranial defect [] [x] Epilepsy [] [x] History of head trauma [] [x] Intracerebral aneurysm [] [x] Intracranial lesion (tumor or infection) causing mass effect [] [x] Recent intracranial hemorrhage [] [x] Recent thromboembolic stroke [] [x] Unstable vertebral fracture [] [x] Obstetrics/Gynecology (on control - sprintec) [] [x] Ophthalmology Closed-angle glaucoma [] [x] Poorly controlled open-angle glaucoma [] [x] Retinal detachment [] [x] Orthopedics Fractures [] [x] Rheumatology Severe osteoporosis [] [x] === Transcranial Magnetic Stimulation (TMS) Contraindications Present Absent Absolute contraindications Active substance misuse (particularly alcohol d/t change in seizure threshold) [] [x] Epilepsy in first degree relative [] [x] History of seizures [] [x] History of serious head trauma [] [x] History stroke [] [x] Status post brain surgery [] [x] Other medical/neurologic conditions either associated with epilepsy or in whom a seizure would be particularly hazardous (e.g. increased intracranial pressure) [] [x] Relative contraindications Implantable medical pumps [] [x] Medications that significantly reduce seizure threshold [] [x] Metallic hardware near coil [] [x] Pacemakers [] [x] Ventriculo-peritoneal shunts [] [x] === PAST SURGICAL HISTORY Procedure Laterality Date CARPAL TUNNEL bilateral DELIVERY ONLY 08/05/12 LAPAROSCOPY SURG CHOLECYSTECTOMY 07/01/2018 Cholecystectomy, lap Medical and surgical history reviewed === ROS: All other systems negative. VITAL SIGNS: Not obtained === PSYCH REVIEW OF SYSTEMS Sleep: difficulty staying asleep, difficulty falling asleep. If I wake up on my own I'm OK, but if I have to get up to an alarm I feel very blah. Interest: severely diminished. Guilt/ruminations: a lot Energy: 'Its zero' Concentration: poor Appetite: weight gain 35 lbs. In last year. Binging episodes. 'I've never been this big. Im eating my feelings'. Hx bulimia 15yrs ago. Psychomotor Activity: psychomotor activity was WNL. Suicide: Passive wish to be . 'I have them when I wake up and when I go to bed. I try to think of my son'. Phobias: spiders Memory: Poor Generalized anxiety: severe and panic symptoms/attacks Panic Attacks/Panic Disorder/Agoraphobia: 2-3 severe episodes a year. Frequent less intense eps weekly Obsessions: and dying Compulsions: none [place]: Denies any recent symptoms of k[place]. Endorses episodes of k[place] in the past (decreased sleep, increased goal directed activity) Psychosis: Denies AH/VH. Denies delusions. PTSD: The patient denies being expose to or witnessing traumatic events. Self Mutilation: Cutting, last incident 1 yr ago Head trauma history: None Seizure history: None MENTAL STATUS EXAMINATION: Appearance: Casually dressed Behavior: Behaves appropriately during the encounter Social relatedness: Withdrawn and Melancholic Speech/Language: The patient demonstrates appropriate tone, prosody, oneal, phonetics, and syntax Mood: sad depressed Affect: Full and appropriate to topic Concentration/focus: Intact Orientation: Person, Place, Time and Situation Associations: Intact and linear Hallucinations: None Delusions: None Suicidal Ideation: Thoughts of suicide, no intent or plan. Homicidal Ideation: No homicidal ideation, intent or plan. Insight: Appropriate Judgment: Appropriate === PATIENT DATA: [facility] DETAIL REVIEW 09/30/2022 1.Have any of your closest relationships been trouble by a lot of arguments or repeated breakups? Yes 2.Have you deliberately hurt yourself physically (e.g. punched yourself, cut yourself, burned yourself)? How about made a suicide attempt? Yes 3.Have you had at least two other problems with impulsivity (e.g. eating binges and spending sprees, drinking too much and verbal outbursts)? Yes 4.Have you been extremely nazario? No 5.Have you felt very angry a lot of the time? How about often acted in an angry or sarcastic manner? Yes 6.Have you often been distrustful of other people? Yes 7.Have you frequently felt unreal or as if things around you were unreal? Yes 8.Have you chronically felt empty? Yes 9.Have you often felt that you had no idea of who you are or that you have no identity? Yes 10.Have you made desperate efforts to avoid feeling abandoned or being abandoned (e.g., repeatedly called someone to reassure yourself that he or she still cared, begged them not to leave you, clung to them physically)? Yes 11.Have you ever been diagnosed with Bipolar I (with kashmir), Schizoaffective disorder, or Schizophrenia? No 12.In the past month, have you used marijuana, alcohol, or other drugs excessively, to the point that it caused problems or you tried to stop (don't include nicotine)? No Ruminative Responses Scale Ratings: 1 (almost never), 2 (sometimes), 3 (often), 4 (almost always) Score 1. think about how alone you feel 4 2. think I won t be able to do my job if I don t snap out of this 3 3. think about your feelings of fatigue and achiness 4 4. think about how hard it is to concentrate 3 5. think What am I doing to deserve this? 4 6. think about how passive and unmotivated you feel. 4 7. analyze recent events to try to understand why you are depressed 3 8. think about how you don t seem to feel anything anymore 2 9. think Why can t I get going? 3 10. think Why do I always react this way? 2 11. go away by yourself and think about why you feel this way 2 12. write down what you are thinking about and analyze it 3 13. think about a recent situation, wishing it had gone better 3 14. think I won t be able to concentrate if I keep feeling this way. 4 15. think Why do I have problems other people don t have? 4 16. think Why can t I handle things better? 3 17. think about how sad you feel. 4 18. think about all your shortcomings, failings, faults, mistakes 4 19. think about how you don t feel up to doing anything 3 20. analyze your personality to try to understand why you are depressed 2 21. go someplace alone to think about your feelings 2 22. think about how angry you are with yourself 3 Total score: 69 Generalized Anxiety Disorder Scale (SERGIO-7) SERGIO - 7 SCORES SERGIO-7 Score 09/30/2022 17 09/22/2022 17 09/06/2022 18 08/09/2022 14 07/18/2022 17 05/29/2022 17 03/04/2022 13 01/27/2022 14 12/23/2021 15 11/12/2021 16 (0-4) minimal anxiety, (5-9) mild anxiety, (10-14) moderate anxiety, (15-21) severe anxiety Patient Health Questionnaire (PHQ-9) PHQ-9 Score 09/30/2022 25 09/22/2022 26 09/06/2022 23 08/09/2022 23 07/18/2022 22 07/12/2022 23 07/12/2022 23 07/12/2022 23 05/29/2022 19 03/04/2022 16 (0-4) minimal depression, (5-9) mild depression, (10-14) moderate depression, (15-19) moderately severe depression, (20-27) severe depression PROMIS Global Health PROMIS Global Health - (T-Scores - the mean of general population = 50. Five points is a clinically meaningful difference.) Physical T-Score Mental T-Score 09/06/2022 32.4 31.3 05/29/2022 37.4 21.2 03/29/2022 34.9 31.3 01/27/2022 37.4 36.3 11/11/2021 29.6 28.4 11/11/2021 29.6 28.4 10/26/2021 32.4 28.4 10/21/2021 37.4 21.2 10/21/2021 37.4 21.2 08/27/2021 34.9 31.3 PTSD Checklist for DSM-5 (PCL-5) PCL-5 PCL-5 Total Score 1. Repeated, disturbing, and unwanted memories of the stressful experience? 2. Repeated, disturbing dreams of the stressful experience? 09/30/2022 60 Moderately Quite a bit 33 = proposed cut-off score for PTSD symptoms warranting further investigation until further psychometric work is available <33 = subthreshold symptoms of PTSD >24 PTSD is a clinical concern, 33-36 probable PTSD, >37 significant PTSD Amari Cognitive Assessment (MoCA) Version 1 Total Score: 26/30 Visuospatial/Executive Alternating [place] Making: Patient successfully draws the pattern without drawing any lines that cross. (+1) Visuoconstructional Skills (Shape): Patient correctly executed drawing. (+1) Visuoconstructional Skills (Clock): Abnormal-Contour Visuospatial/Executive Score: 4/5 Naming The patient was able to name: Camel or Dromedary, Rhinoceros or Rhino, Lion Naming Score: 3/3 Memory Trials Memory Trial (1): The patient was able to correctly register: 4/5 Memory Trial (2): The patient was able to correctly register: 5/5 Attention Forward Digit Span: Correct (+1) Backward Digit Span: Correct (+1) Vigilance: Correct (+1) Attention - Serial 7's: (4 or 5) Correct subtractions (+3) Attention Score: 6/6 Language Sentence Repetition (1): Incorrect (0) Sentence Repetition (2): Correct (+1) Verbal Fluency: Patient produced 17 words. (+1) Language Score: 2/3 Abstraction Abstraction (1): Patient successfully related similarity. (+1) Abstraction (2): Patient successfully related similarity. (+1) Abstraction Score: 2/2 Delayed Recall Word 1: Required category cue- 'part of the body' (0) Word 2: Spontaneously recalled (+1) Word 3: Spontaneously recalled (+1) Word 4: Spontaneously recalled (+1) Word 5: Required category cue- 'a color' (0) Delayed Recall Score: 3/5 Orientation The patient was able to answer correctly: exact date, year, month, day of the week, exact place (name of hospital, clinic, office), city. Orientation Score: 11/30 Education less than or equal to 12th grade: +0 Semantic Fluency Patient produced 17 words. MoCA Past Scores MoCA 09/30/2022 MOCA TOTAL SCORE 26 out of 30 Visuospatial/ Executive 4 Naming 3 Attention 6 Language 2 Abstraction 2 Delayed Recall 3 Orientation 6 Education Level 0 IMPRESSION: Cheryl is a 37 year old female with a history of Bipolar depression (Bipolar II), SERGIO.Referred to clinic by psych provider for evaluation for ECT. On assessment pt was pleasant and engaged with diagnostic interview. Fair historian of her past psychiatric treatment. Pt describes multiple failed trials of various medications over the last 10+ years, all being discontinued due to lack of efficacy or intolerance of a side effect. Prior to this assessment pt was referred for Ketamine but was declined due to insurance. PT endorses debilitating anhedonia, amotivation and anxiety which have contributed to her current unemployment and present an obstacle to finding a new job. Based on findings of interview and chart review - there is suspicion of borderline PD (pt herself believes she has it) which would explain her poor response to prior treatments. Pt also scored high on PCL-5, despite pt denying having experienced a significant traumatic event. Ultimately given pt's severity of depression, the benefit of ECT appears to outweigh the risk. DIAGNOSIS: PRIMARY: Mood Disorder Bipolar II Disorder SECONDARY: Anxiety Disorder Panic Disorder - Without Agoraphobia and Generalized Anxiety Disorder Other : Borderline Personality Disorder GAF: 50-41 Serious symptoms or any serious impairment in social, occupational or school functioning. PLAN: We discussed potential benefits of ECT for mental health, as well as potential risks including headache, muscle, damage to teeth, seizures outside of ECT sessions, memory impairments, delirium, and anesthesia associated risk (allergies, anaphylaxis, and ). We also discussed potential alternatives to ECT (MAOIs, TMS). Patient expressed a desire to proceed with ECT. 1. Will order 12 sessions of electroconvulsive therapy. Our clinic compliance coordinator Ariella Cortes will reach out to patient once insurance coverage has been obtained to schedule Pre Anesthesia Testing (PAT). After successfully completing this, patient will be scheduled for ECT (typical time frame is ECT initiation within 2 weeks of the PAT visit). Patient has been instructed that they cannot drive during acute ECT series and for two weeks afterwards. They agreed a loved one will pick them up after treatments. 2. [facility] and been given the patient information sheet on ECT. DISPOSITION: Patient will be proceeding with ECT and will see me again at conclusion of acute series. I spent a total of 90 minutes on the date of the service which included preparing to see the patient, [id number] patient care, completing clinical documentation, counseling and educating the patient/family/caregiver, and ordering medications, tests, or procedures. SIGNATURE: JENA Carlos PATIENT NAME: Cheryl Evans DATE: 09/30/2022 TIME: 9:58 AM documented in this encounter [facility] 09-27-2022 Note HNO ID: [id number] Author: Donna Granados APRN.CNP Service: ? Author Type: Nurse Practitioner Type: Progress Notes Filed: 10/03/2022 9:25 PM Note Text: PSYC FOLLOW UP - PSYCHIATRIC PROGRESS NOTE DIAGNOSIS: Bipolar 2 disorder Panic disorder without agoraphobia Marijuana use GAF: -60-51 Moderate symptoms or moderate difficulty in social, occupational or school functioning. TREATMENT PLAN: Increase Zyprexa to address her sleep and mood concerns. Continue Lamictal, Lexapro, Trazodone, and Minipress at the same dose. Complete intake for ECT on . Complete urine tox screen as well as EKG. Follow up in 4 weeks. Medication Update: Zyprexa 15 mg - take 1 tablet at bedtime. 2. Continue the rest of the psychiatric medications at the same dose. The effects and side effects of all the medications were reviewed in detail with patient. She denies any involuntary movement related side effects. Patient is aware of the rash side effect associated with Lamictal. She is in agreement with the treatment plan and aware to reach out with any questions, concerns, or worsening of symptoms prior to the next appointment. CC: Follow up regarding mood and anxiety With the patient consent, visit was performed virtually. I have communicated my name and active licensure. The patient's identity and physical location were verified at the time of this visit. 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 HPI: Cheryl Estrella Lover is a 37 year old Female with a history of Bipolar disorder and Panic disorder presenting today for follow-up. Date of last visit: 08/16/2022 Plan from last visit: Increase Zyprexa to address her mood and sleep concerns. Complete referral for ECT to address patient's depressive symptoms. Complete urine tox screen. Okay to restart xanax at a low dose if no substances are found in her urine. Continue Trazodone, Lexapro, Lamictal and Minipress at the same dose. Complete EKG for monitoring purposes. Follow up in 4 weeks. Today Cheryl shares that she is looking forward to her intake for ECT this . She has been thinking about looking for another job. She is not able to sleep well at night. Has tolerated the increase in Zyprexa but struggles with falling asleep. Trazodone does help keep her asleep. She enquired about restarting her stimulant. We discussed the risk of seizures as well as her marijuana use history. Patient is willing to abstain from marijuana use. She was reminded to complete EKG and urine lab work. Interval Progress: Slightly improved Risks and benefits of the medication, including any black box warnings, were discussed with the patient. Social History: See HPI PATIENT DATA: Generalized Anxiety Disorder Scale (SERGIO-7) SERGIO - 7 SCORES 08/09/2022 09/06/2022 09/22/2022 SERGIO-7 Score 14 18 17 (0-4) minimal anxiety, (5-9) mild anxiety, (10-14) moderate anxiety, (15-21) severe anxiety Patient Health Questionnaire (PHQ-9) PHQ-9 08/09/2022 09/06/2022 09/22/2022 Score 23 23 26 (0-4) minimal depression, (5-9) mild depression, (10-14) moderate depression, (15-19) moderately severe depression, (20-27) severe depression ROS: General: Negative for fever, malaise, unintentional weight loss HEENT: Negative for recent changes in vision or hearing, no nasal drainage Respiratory: Negative for cough, wheezing or SOB Cardiovascular: Negative for chest pain GI: Negative for nausea, vomiting, change in bowel habits MUSCULOSKELETAL: Negative for acute back or joint pain SKIN: Negative for rash NEURO: Negative for headaches, seizures, focal neurological deficits All other systems negative. VITAL SIGNS: BP Temp Pulse Resp SpO2 MENTAL STATUS EXAMINATION: Appearance: Appropriately groomed, appears stated age Behavior: Appropriately engaged Psychomotor: No psychomotor agitation Cognition Level of Consciousness: Awake and alert. No fluctuation in wakefulness. Orientation: Grossly oriented Memory: Intact Attention/Concentration: Good Fund of Knowledge: Able to demonstrate an awareness of current events. Mood: Sad, anxious Affect: Congruent to mood Speech/Language: Appropriate tone, prosody, oneal, phonetics, and syntax Thought Form: Goal-directed. No loosening of associations. Thought Content: No delusions noted or endorsed. Perceptual Disturbances: Did not appear to respond to auditory stimuli. Safety: Suicidal Ideations: No suicidal ideation, intent or plan. Homicidal Ideations: No homicidal ideation, intent or plan. Insight: Appropriate Judgment: Appropriate I spent a total of 28 minutes on the date of the service which included preparing to see the patient, [id number] patient care, completing clinical documentation, and counseling and educating (more content not included)... [facility] 09-27-2022 Instructions Donna Granados APRN.CNP - 09/27/2022 3:51 PM EDT Calixto Kauffman, It was good to talk with you today. Below is a summary of the plan that we discussed during your appointment for reference. Of course, if you have any questions or concerns do not hesitate to reach out to me via a message or call. Venkatesh, Donna Granados APRN.JUANY PLAN AND FOLLOW UP: YOU SHOULD SEEK IMMEDIATE MEDICAL ATTENTION AT THE NEAREST EMERGENCY DEPARTMENT OR BY CALLING 911, IF ANY OF THE FOLLOWING OCCURS: - New or worsening thoughts of harming yourself (suicidal thoughts) or others (homicidal thoughts) - Not feeling safe at home or worrying about your ability to remain safe at home If you are having thoughts of harming yourself or others, then you can: - Call the National Suicide Hotline at 3-509-URTZZEH ( ) or 0-698-149-TALK (1297) - Text 4HOPE to 268546 Medication Update: Zyprexa 15 mg - take 1 tablet at bedtime. 2. Continue the rest of the psychiatric medications at the same dose. Next appointment: --Schedule in 4 weeks or sooner if needed -- You may call the department appointment line at [phone] to schedule your appointment. -- Please call my nurse Cassy at [phone] or send me a message in [employer] with any questions or concerns between appointments. documented in this encounter [facility] 09-27-2022 History of Presen t illness Narrative Images from the original note were not included. PSYC FOLLOW UP - PSYCHIATRIC PROGRESS NOTE DIAGNOSIS: Bipolar 2 disorder Panic disorder without agoraphobia Marijuana use GAF: -60-51 Moderate symptoms or moderate difficulty in social, occupational or school functioning. TREATMENT PLAN: Increase Zyprexa to address her sleep and mood concerns. Continue Lamictal, Lexapro, Trazodone, and Minipress at the same dose. Complete intake for ECT on . Complete urine tox screen as well as EKG. Follow up in 4 weeks. Medication Update: Zyprexa 15 mg - take 1 tablet at bedtime. 2. Continue the rest of the psychiatric medications at the same dose. The effects and side effects of all the medications were reviewed in detail with patient. She denies any involuntary movement related side effects. Patient is aware of the rash side effect associated with Lamictal. She is in agreement with the treatment plan and aware to reach out with any questions, concerns, or worsening of symptoms prior to the next appointment. CC: Follow up regarding mood and anxiety With the patient consent, visit was performed virtually. I have communicated my name and active licensure. The patient's identity and physical location were verified at the time of this visit. 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 HPI: Cheryl Estrella Lover is a 37 year old Female with a history of Bipolar disorder and Panic disorder presenting today for follow-up. Date of last visit: 08/16/2022 Plan from last visit: Increase Zyprexa to address her mood and sleep concerns. Complete referral for ECT to address patient's depressive symptoms. Complete urine tox screen. Okay to restart xanax at a low dose if no substances are found in her urine. Continue Trazodone, Lexapro, Lamictal and Minipress at the same dose. Complete EKG for monitoring purposes. Follow up in 4 weeks. Today Cheryl shares that she is looking forward to her intake for ECT this . She has been thinking about looking for another job. She is not able to sleep well at night. Has tolerated the increase in Zyprexa but struggles with falling asleep. Trazodone does help keep her asleep. She enquired about restarting her stimulant. We discussed the risk of seizures as well as her marijuana use history. Patient is willing to abstain from marijuana use. She was reminded to complete EKG and urine lab work. Interval Progress: Slightly improved Risks and benefits of the medication, including any black box warnings, were discussed with the patient. Social History: See HPI PATIENT DATA: Generalized Anxiety Disorder Scale (SERGIO-7) SERGIO - 7 SCORES 08/09/2022 09/06/2022 09/22/2022 SERGIO-7 Score 14 18 17 (0-4) minimal anxiety, (5-9) mild anxiety, (10-14) moderate anxiety, (15-21) severe anxiety Patient Health Questionnaire (PHQ-9) PHQ-9 08/09/2022 09/06/2022 09/22/2022 Score 23 23 26 (0-4) minimal depression, (5-9) mild depression, (10-14) moderate depression, (15-19) moderately severe depression, (20-27) severe depression ROS: General: Negative for fever, malaise, unintentional weight loss HEENT: Negative for recent changes in vision or hearing, no nasal drainage Respiratory: Negative for cough, wheezing or SOB Cardiovascular: Negative for chest pain GI: Negative for nausea, vomiting, change in bowel habits MUSCULOSKELETAL: Negative for acute back or joint pain SKIN: Negative for rash NEURO: Negative for headaches, seizures, focal neurological deficits All other systems negative. VITAL SIGNS: BP Temp Pulse Resp SpO2 MENTAL STATUS EXAMINATION: Appearance: Appropriately groomed, appears stated age Behavior: Appropriately engaged Psychomotor: No psychomotor agitation Cognition Level of Consciousness: Awake and alert. No fluctuation in wakefulness. Orientation: Grossly oriented Memory: Intact Attention/Concentration: Good Fund of Knowledge: Able to demonstrate an awareness of current events. Mood: Sad, anxious Affect: Congruent to mood Speech/Language: Appropriate tone, prosody, oneal, phonetics, and syntax Thought Form: Goal-directed. No loosening of associations. Thought Content: No delusions noted or endorsed. Perceptual Disturbances: Did not appear to respond to auditory stimuli. Safety: Suicidal Ideations: No suicidal ideation, intent or plan. Homicidal Ideations: No homicidal ideation, intent or plan. Insight: Appropriate Judgment: Appropriate I spent a total of 28 minutes on the date of the service which included preparing to see the patient, [id number] patient care, completing clinical documentation, and counseling and educating the patient/family/caregiver, ordering medications/labs. Donna Granados APRN.CNP September 27, 2022 3:26 PM This note was partially generated using [employer] voice recognition system. Note was reviewed for accuracy. There may be minor misspellings or grammar miscues with [employer] voice recognition. documented in this encounter [facility] 09-13-2022 Note HNO ID: [id number] Author: Donna Granados APRN.CNP Service: ? Author Type: Nurse Practitioner Type: Progress Notes Filed: 09/13/2022 2:42 PM Note Text: Patient did not log in for her virtual intake with the provider today. She did not answer her phone when she was contacted prior to the appointment time. [facility] 09-13-2022 History of Presen t illness Narrative Patient did not log in for her virtual intake with the provider today. She did not answer her phone when she was contacted prior to the appointment time. documented in this encounter [facility] 08-24-2022 Miscellaneous Notes Summary: ECT Referral INTERNAL ([facility]) ECT Referral Received: 08/18/22 - scanned into [employer] From: Donna Granados @ [facility] ECT Eval: TBD Left voicemail requesting callback in ECT office at [phone] to schedule ECT eval. Awaiting patient response. documented in this encounter [facility] 08-16-2022 Note HNO ID: [id number] Author: Donna Granados APRN.BEND UP Service: ? Author Type: Nurse Practitioner Type: Progress Notes Filed: 08/16/2022 4:03 PM Note Text: PSYC FOLLOW UP - PSYCHIATRIC PROGRESS NOTE DIAGNOSIS: Bipolar 2 disorder Panic disorder without agoraphobia Marijuana use - in remission per patient. GAF: -60-51 Moderate symptoms or moderate difficulty in social, occupational or school functioning. TREATMENT PLAN: Increase Zyprexa to address her mood and sleep concerns. Complete referral for ECT to address patient's depressive symptoms. Complete urine tox screen. Okay to restart xanax at a low dose if no substances are found in her urine. Continue Trazodone, Lexapro, Lamictal and Minipress at the same dose. Complete EKG for monitoring purposes. Follow up in 4 weeks. Medication Update: Zyprexa 10 mg - take 1 tablet at bedtime. Continue the rest of your psychiatric medications at the same dose. The effects and side effects of all the medications were reviewed in detail with the patient. She denies any involuntary movement related side effects. Patient is aware of the rash side effect associated with Lamictal. Patient is in agreement with the treatment plan and aware to reach out with any questions, concerns, or worsening of symptoms prior to the next appointment. PDMP report was reviewed and found to be appropriate without any signs of misuse or diversion. CC: Follow up regarding mood and anxiety With the patient consent, visit was performed virtually. HPI: Cheryl Estrella Lover is a 36 year old Female with a history of Bipolar disorder and Panic disorder presenting today for follow-up. Date of last visit: 07/19/2022 Plan from last visit: Start Zyprexa to help with her mood, anxiety, racing thoughts and difficulty sleeping. Continue Lamictal, Lexapro, Trazodone, and Prazosin at the same dose. Consider gradual increase in Zyprexa dose as tolerated. Complete EKG for monitoring purposes. Complete urine tox screen. Consider providing low PRN dose of a benzodiazapine to help with her panic symptoms if no substances found in her screen. Start Ketamine infusion treatments at [facility]. Follow up in 4 weeks. Today Cheryl shares that she has been doing okay. She is not able to get the Ketamine infusions as her insurance was not able to cover that. She is not able to pay out of pocket for it. She is not working right now and her unemployment has been denied. We discussed ECT as a treatment option instead to address her depressive concerns. She is happy to consider that. We reviewed her questions regarding ECT in detail. She has noticed that Zyprexa was initially helping with her sleep but she feels that she would benefit from an increase in the dose. She noticed it minimally helping with her mood and anxiety as she was sleeping better. She denies any side effects from Zyprexa currently. She enjoys spending time with her 4 cats. Things are going well in her relationship. Her boyfriend is going to have a hernia operation. She is unsure if this will warrant her to move her wedding in [facility]. She has good support in her son's father. She is sad to see him struggle with mental health issues currently. Interval Progress: Slightly improved Risks and benefits of the medication, including any black box warnings, were discussed with the patient. Social History: See HPI PATIENT DATA: Generalized Anxiety Disorder Scale (SERGIO-7) SERGIO - 7 SCORES 05/29/2022 07/18/2022 08/09/2022 SERGIO-7 Score 17 17 14 (0-4) minimal anxiety, (5-9) mild anxiety, (10-14) moderate anxiety, (15-21) severe anxiety Patient Health Questionnaire (PHQ-9) PHQ-9 07/12/2022 07/18/2022 08/09/2022 Score 23 22 23 (0-4) minimal depression, (5-9) mild depression, (10-14) moderate depression, (15-19) moderately severe depression, (20-27) severe depression ROS: General: Negative for fever, malaise, unintentional weight loss HEENT: Negative for recent changes in vision or hearing, no nasal drainage Respiratory: Negative for cough, wheezing or SOB Cardiovascular: Negative for chest pain GI: Negative for nausea, vomiting, change in bowel habits MUSCULOSKELETAL: Negative for acute back or joint pain SKIN: Negative for rash NEURO: Negative for headaches, seizures, focal neurological deficits All other systems negative. VITAL SIGNS: BP Temp Pulse Resp SpO2 MENTAL STATUS EXAMINATION: Appearance: Appropriately groomed, appears stated age Behavior: Appropriately engaged Psychomotor: No psychomotor agitation Cognition Level of Consciousness: Awake and alert. No fluctuation in wakefulness. Orientation: Grossly oriented Memory: Intact Attention/Concentration: Good Fund of Knowledge: Able to demonstrate an awareness of current events. Mood: Sad Affect: Congruent to mood Speech/Language: Appropriate tone, prosody, oneal, phonetics, and syntax Thought Form: Goal-directed. (more content not included)... [facility] 08-09-2022 Miscellaneous Notes [place]--03/29/22 Nov--nothing scheduled Last refill--06/2421 112 with 3 refills Last labs--02/05/22 documented in this encounter [facility] 07-19-2022 Note HNO ID: [id number] Author: Donna Granados APRN.BEND UP Service: ? Author Type: Nurse Practitioner Type: Progress Notes Filed: 07/25/2022 9:29 PM Note Text: PSYC FOLLOW UP - PSYCHIATRIC PROGRESS NOTE DIAGNOSIS: Panic disorder without agoraphobia Bipolar 2 disorder Marijuana use GAF: -60-51 Moderate symptoms or moderate difficulty in social, occupational or school functioning. TREATMENT PLAN: Start Zyprexa to help with her mood, anxiety, racing thoughts and difficulty sleeping. Continue Lamictal, Lexapro, Trazodone, and Prazosin at the same dose. Consider gradual increase in Zyprexa dose as tolerated. Complete EKG for monitoring purposes. Complete urine tox screen. Consider providing low PRN dose of a benzodiazapine to help with her panic symptoms if no substances found in her screen. Start Ketamine infusion treatments at [facility]. Follow up in 4 weeks. Medication Update: Zyprexa (Olanzapine) 5 mg - take 1 tablet every night at bedtime. 2. Continue the rest of your psychotropic medications at the same dose. The effects and side effects of all the medications were reviewed in detail with the patient. Patient is aware of the rash side effect associated with Lamictal. Patient is in agreement with the treatment plan and aware to reach out with any questions, concerns, or worsening of symptoms prior to the next appointment. CC: Follow up regarding mood and anxiety With the patient consent, visit was performed virtually. HPI: Cheryl Estrella Lover is a 36 year old Female with a history of panic disorder, bipolar 2 disorder, and marijuana use presenting today for follow-up. Date of last visit: 05/31/2022 Plan from last visit: Complete urine tox screen prior to restarting PRN xanax. Complete EKG prior to increasing Lexapro dose to address her social anxiety symptoms. Restart Minipress to help with her nightmares. Discontinue Seroquel due to side effects and restart Trazodone to help with sleep difficulties. Continue Lamictal at the current dose. Follow up in 6 to 8 weeks. Today Cheryl shares that she has been awful . She has been struggling with more anxiety. She is interested in doing ketamine infusions. She has talked to a clinic in [facility]. She is waiting to complete the process. She wanted to share that she tried the marijuana to help with her sleep and pain. Reports that she wanted to try it before getting medical marijuana. She would like to increase her trazodone dose back to 300 mg due to sleep difficulties. She is no longer binge eating. She is working on eating better. Cheryl shares that she lost her job. Could not do her job well due to joint pain. Shares that her anxiety was preventing her from going into work. Things are going well in her relationship but she is worried about moving to [place] away from her 10 year old son. Has good support in son's father. Interval Progress: Slightly worse Risks and benefits of the medication, including any black box warnings, were discussed with the patient. Social History: See HPI PATIENT DATA: Generalized Anxiety Disorder Scale (SERGIO-7) SERGIO - 7 SCORES 03/04/2022 05/29/2022 07/18/2022 SERGIO-7 Score 13 17 17 (0-4) minimal anxiety, (5-9) mild anxiety, (10-14) moderate anxiety, (15-21) severe anxiety Patient Health Questionnaire (PHQ-9) PHQ-9 07/12/2022 07/12/2022 07/18/2022 Score 23 23 22 (0-4) minimal depression, (5-9) mild depression, (10-14) moderate depression, (15-19) moderately severe depression, (20-27) severe depression ROS: General: Negative for fever, malaise, unintentional weight loss HEENT: Negative for recent changes in vision or hearing, no nasal drainage Respiratory: Negative for cough, wheezing or SOB Cardiovascular: Negative for chest pain GI: Negative for nausea, vomiting, change in bowel habits MUSCULOSKELETAL: Negative for acute back or joint pain SKIN: Negative for rash NEURO: Negative for headaches, seizures, focal neurological deficits All other systems negative. VITAL SIGNS: BP Temp Pulse Resp SpO2 MENTAL STATUS EXAMINATION: Appearance: Appropriately groomed, appears stated age Behavior: Appropriately engaged Psychomotor: No psychomotor agitation Cognition Level of Consciousness: Awake and alert. No fluctuation in wakefulness. Orientation: Grossly oriented Memory: Intact Attention/Concentration: Good Fund of Knowledge: Able to demonstrate an awareness of current events. Mood: Sad, Anxious Affect: Tearful at times Speech/Language: Appropriate tone, prosody, oneal, phonetics, and syntax Thought Form: Goal-directed. No loosening of associations. Thought Content: No delusions noted or endorsed. Perceptual Disturbances: Did not appear to respond to auditory stimuli. Safety: Suicidal Ideations: No suicidal ideation, intent or plan. Homicidal Ideations: No homicidal ideation, intent or plan. Insight: Appropriate Judgme (more content not included)... [facility] 07-19-2022 Instructions Donna Granados APRN.CNP - 07/19/2022 2:57 PM EST Calixto Kauffman, It was good to talk with you today. Below is a summary of the plan that we discussed during your appointment for reference. Of course, if you have any questions or concerns do not hesitate to reach out to me via a message or call. Donna Riddle APRN.CNP PLAN AND FOLLOW UP: YOU SHOULD SEEK IMMEDIATE MEDICAL ATTENTION AT THE NEAREST EMERGENCY DEPARTMENT OR BY CALLING 911, IF ANY OF THE FOLLOWING OCCURS: - New or worsening thoughts of harming yourself (suicidal thoughts) or others (homicidal thoughts) - Not feeling safe at home or worrying about your ability to remain safe at home If you are having thoughts of harming yourself or others, then you can: - Call the National Suicide Hotline at 6-598-NNAAGAP ( ) or 1-067-568-TALK (9656) - Text 2DUEL to 749194 Medication Update: Zyprexa (Olanzapine) 5 mg - take 1 tablet every night at bedtime. 2. Continue the rest of your psychotropic medications at the same dose. Lab work: Complete urine tox screen prior to the next appointment. Other: Schedule and complete EKG prior to the next appointment. Next appointment: --Schedule in 4 weeks or sooner if needed -- You may call the department appointment line at [phone] to schedule your appointment. -- Please call my nurse Cassy at [phone] or send me a message in [employer] with any questions or concerns between appointments. documented in this encounter [facility] 07-19-2022 History of Presen t illness Narrative Images from the original note were not included. PSYC FOLLOW UP - PSYCHIATRIC PROGRESS NOTE DIAGNOSIS: Panic disorder without agoraphobia Bipolar 2 disorder Marijuana use GAF: -60-51 Moderate symptoms or moderate difficulty in social, occupational or school functioning. TREATMENT PLAN: Start Zyprexa to help with her mood, anxiety, racing thoughts and difficulty sleeping. Continue Lamictal, Lexapro, Trazodone, and Prazosin at the same dose. Consider gradual increase in Zyprexa dose as tolerated. Complete EKG for monitoring purposes. Complete urine tox screen. Consider providing low PRN dose of a benzodiazapine to help with her panic symptoms if no substances found in her screen. Start Ketamine infusion treatments at [facility]. Follow up in 4 weeks. Medication Update: Zyprexa (Olanzapine) 5 mg - take 1 tablet every night at bedtime. 2. Continue the rest of your psychotropic medications at the same dose. The effects and side effects of all the medications were reviewed in detail with the patient. Patient is aware of the rash side effect associated with Lamictal. Patient is in agreement with the treatment plan and aware to reach out with any questions, concerns, or worsening of symptoms prior to the next appointment. CC: Follow up regarding mood and anxiety With the patient consent, visit was performed virtually. HPI: Cheryl Estrella Lover is a 36 year old Female with a history of panic disorder, bipolar 2 disorder, and marijuana use presenting today for follow-up. Date of last visit: 05/31/2022 Plan from last visit: Complete urine tox screen prior to restarting PRN xanax. Complete EKG prior to increasing Lexapro dose to address her social anxiety symptoms. Restart Minipress to help with her nightmares. Discontinue Seroquel due to side effects and restart Trazodone to help with sleep difficulties. Continue Lamictal at the current dose. Follow up in 6 to 8 weeks. Today Cheryl shares that she has been awful . She has been struggling with more anxiety. She is interested in doing ketamine infusions. She has talked to a clinic in [facility]. She is waiting to complete the process. She wanted to share that she tried the marijuana to help with her sleep and pain. Reports that she wanted to try it before getting medical marijuana. She would like to increase her trazodone dose back to 300 mg due to sleep difficulties. She is no longer binge eating. She is working on eating better. Cheryl shares that she lost her job. Could not do her job well due to joint pain. Shares that her anxiety was preventing her from going into work. Things are going well in her relationship but she is worried about moving to [place] away from her 10 year old son. Has good support in son's father. Interval Progress: Slightly worse Risks and benefits of the medication, including any black box warnings, were discussed with the patient. Social History: See HPI PATIENT DATA: Generalized Anxiety Disorder Scale (SERGIO-7) SERGIO - 7 SCORES 03/04/2022 05/29/2022 07/18/2022 SERGIO-7 Score 13 17 17 (0-4) minimal anxiety, (5-9) mild anxiety, (10-14) moderate anxiety, (15-21) severe anxiety Patient Health Questionnaire (PHQ-9) PHQ-9 07/12/2022 07/12/2022 07/18/2022 Score 23 23 22 (0-4) minimal depression, (5-9) mild depression, (10-14) moderate depression, (15-19) moderately severe depression, (20-27) severe depression ROS: General: Negative for fever, malaise, unintentional weight loss HEENT: Negative for recent changes in vision or hearing, no nasal drainage Respiratory: Negative for cough, wheezing or SOB Cardiovascular: Negative for chest pain GI: Negative for nausea, vomiting, change in bowel habits MUSCULOSKELETAL: Negative for acute back or joint pain SKIN: Negative for rash NEURO: Negative for headaches, seizures, focal neurological deficits All other systems negative. VITAL SIGNS: BP Temp Pulse Resp SpO2 MENTAL STATUS EXAMINATION: Appearance: Appropriately groomed, appears stated age Behavior: Appropriately engaged Psychomotor: No psychomotor agitation Cognition Level of Consciousness: Awake and alert. No fluctuation in wakefulness. Orientation: Grossly oriented Memory: Intact Attention/Concentration: Good Fund of Knowledge: Able to demonstrate an awareness of current events. Mood: Sad, Anxious Affect: Tearful at times Speech/Language: Appropriate tone, prosody, oneal, phonetics, and syntax Thought Form: Goal-directed. No loosening of associations. Thought Content: No delusions noted or endorsed. Perceptual Disturbances: Did not appear to respond to auditory stimuli. Safety: Suicidal Ideations: No suicidal ideation, intent or plan. Homicidal Ideations: No homicidal ideation, intent or plan. Insight: Appropriate Judgment: Appropriate I spent a total of 38 minutes on the date of the service which included preparing to see the patient, [id number] patient care, completing clinical documentation, and counseling and educating the patient/family/caregiver, ordering medications/labs. Donna Granados APRN.JUANY July 19, 2022 2:27 PM This note was partially generated using [employer] voice recognition system. Note was reviewed for accuracy. There may be minor misspellings or grammar miscues with [employer] voice recognition. documented in this encounter [facility] 07-05-2022 Miscellaneous Notes Patient notified, she is hesitant but states she would like you to put an order in and she will come in and have that done. Patient notified that verified with the pharmacy that trazodone is at the pharmacy. Patient is also checking into a refill on the xanax, states the last she used marijuana was a couple of weeks , states she wanted to try it for her fibromyalgia before going out to get a medical marijuana card. documented in this encounter [facility] 07-02-2022 Miscellaneous Notes Patient phones requesting refills as follows: Requested Prescriptions Pending Prescriptions Disp Refills omeprazole (PRILOSEC) 40 mg capsule 30 capsule 11 Sig: Take 1 capsule by mouth once daily. [place]-03/29/22 Labs-06/01/22 NOV-none med filled 10/24/20 Please review and advise. Usha Deshpande LPN documented in this encounter [facility] 05-31-2022 History of Presen t illness Narrative Images from the original note were not included. PSYC FOLLOW UP - PSYCHIATRIC PROGRESS NOTE DIAGNOSIS: Panic Disorder without agoraphobia Bipolar 2 disorder GAF: -60-51 Moderate symptoms or moderate difficulty in social, occupational or school functioning. TREATMENT PLAN: Complete urine tox screen prior to restarting PRN xanax. Complete EKG prior to increasing Lexapro dose to address her social anxiety symptoms. Restart Minipress to help with her nightmares. Discontinue Seroquel due to side effects and restart Trazodone to help with sleep difficulties. Continue Lamictal at the current dose. Follow up in 6 to 8 weeks. The effects and side effects of all the medications were reviewed in detail with the patient. Patient is aware of the rash side effect associated with Lamictal. She denies any involuntary movement related side effects. Patient is in agreement with the treatment plan and aware to reach out with any questions, concerns, or worsening of symptoms prior to the next appointment. PDMP report was reviewed and found to be appropriate without any signs of misuse or diversion. CC: Follow up regarding mood and anxiety With Patient's consent, patient was seen virtually for this visit. HPI: Cheryl Estrella Lover is a 36 year old Female with a history of Panic disorder and bipolar disorder presenting today for follow-up. Date of last visit: 03/04/2022 Plan from last visit: Complete Urine tox screen this week. Complete EKG this week as patient is on multiple medications that can impact her QTC interval. Increase Seroquel to help with sleep difficulty. Change Xanax to a lower dose and decrease monthly allocated amount. Refill after Urine tox screen is completed. Utilize propranolol at the low dose to manage the somatic symptoms of anxiety. Continue Lexapro and Lamictal at the same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 physical symptoms of anxiety. 5. Lexapro 20 mg - take 1 tablet once daily. 6. Xanax 1 mg - take 1/2 tablet twice daily as needed for increased feelings of anxiety. Next appointment: --Schedule in 4 weeks or sooner if needed -- You may call the department appointment line at [phone] to schedule your appointment. -- Please call my nurse Cassy at [phone] or send me a message in [employer] with any questions or concerns between appointments. documented in this encounter [facility] 01-27-2022 History of Presen t illness Narrative Images from the original note were not included. PSYC FOLLOW UP - PSYCHIATRIC PROGRESS NOTE DIAGNOSIS: Bipolar 2 Disorder Panic disorder without agoraphobia GAF: -60-51 Moderate symptoms or moderate difficulty in social, occupational or school functioning. TREATMENT PLAN: Discontinue Trazodone due to lack of efficacy and contributing to binge eating symptoms. Utilize Seroquel to help with anxiety and sleep difficulties. Lower the dose of Propranolol to see if is better tolerated. Increase Lamictal to address her mood related symptoms. Was taking 200 mg in the past. Continue Lexapro at the same dose. Consider increase after she completes the EKG. Complete urine tox screen. Utilize Xanax only has needed for increased episodes of anxiety. Encouraged patient to schedule an appointment for individual psychotherapy. Follow up in 4 weeks. Medication Update: Stop Trazodone Seroquel 50 mg - take 1/2 or 1 tablet at bedtime. Lamictal 150 mg - take 1 tablet once daily. Propranolol 10 mg - take 1 tablet twice daily to help with physical symptoms of anxiety. Lexapro 20 mg - take 1 tablet once daily. Xanax 1 mg - take 1/2 tablet twice daily as needed for increased feelings of anxiety. The effects and side effects of all the medications were reviewed in detail with the patient. She is aware of the rash side effect associated with Lamictal. Patient is in agreement with the treatment plan and aware to reach out with any questions, concerns, or worsening of symptoms prior to the next appointment. PDMP report was reviewed and found to be appropriate without any signs of misuse or diversion. CC: Follow up regarding mood and anxiety With the patient consent, visit was performed virtually. HPI: Cheryl Joaquinr is a 36 year old Female with a history of Bipolar disorder and panic disorder presenting today for follow-up. Date of last visit: 12/24/2021 Plan from last visit: Increase Lamictal to 100 mg to address her bipolar symptoms. I have asked the patient to take this in the evening time to see if the increased dose helps improve her sleep quality. Add propanolol to address her physical symptoms of anxiety during the day. Continue to work on reducing her reliance on Xanax. We discussed changing the dosage to 0.5 mg twice daily instead of 1 mg so that she is able to gradually tolerate a lower dose. Patient will complete her lab work prior to her Xanax being refilled. She is aware and in agreement. Continue Lexapro at the same dose. Obtain an EKG. Patient is aware to schedule an appointment for this. Continue trazodone at the lower dose as it is helping with her sleep and she does report a decrease in binge eating behavior from it. Continue Adderall and Minipress as prescribed by her PCP. Follow-up with this provider in 4 weeks. Today Cheryl shares that she is doing okay. Things have been better. Work has been slow. She had pre-trial last week, everything went as expected. They dropped a couple charges. She changed her plea to no contest. She has sentencing at the end of February. She is expecting probation. She would like a letter about her mental health treatment. She has been struggling more with anxiety. She has been relying more on xanax. Has been experiencing more panic related symptoms currently. Her mood has been leveled. I feel more content . Experiences racing thoughts. Denies severe irritability. She tried taking the propranolol with food. I just felt so weird, it would help with chest tightness, it made me think more and more . She could not relax. Reports that it made her feel strange. Discussed trying a lower dose of 10 mg. Most nights she is waking up constantly and it has been hard for her to fall asleep. Continues to struggle with episodes of binge eating. Discussed stopping trazodone due to binge eating and changing it to seroquel. Interval Progress: Slightly improved Risks and benefits of the medication, including any black box warnings, were discussed with the patient. Social History: See HPI PATIENT DATA: Generalized Anxiety Disorder Scale (SERGIO-7) SERGIO - 7 SCORES 11/12/2021 12/23/2021 01/27/2022 SERGIO-7 Score 16 15 14 (0-4) minimal anxiety, (5-9) mild anxiety, (10-14) moderate anxiety, (15-21) severe anxiety Patient Health Questionnaire (PHQ-9) PHQ-9 11/12/2021 12/23/2021 01/27/2022 Score 21 14 13 (0-4) minimal depression, (5-9) mild depression, (10-14) moderate depression, (15-19) moderately severe depression, (20-27) severe depression ROS: General: Negative for fever, malaise, unintentional weight loss HEENT: Negative for recent changes in vision or hearing, no nasal drainage Respiratory: Negative for cough, wheezing or SOB Cardiovascular: Negative for chest pain GI: Negative for nausea, vomiting, change in bowel habits MUSCULOSKELETAL: Negative for acute back or joint pain SKIN: Negative for rash NEURO: Negative for headaches, seizures, focal neurological deficits All other systems negative. VITAL SIGNS: BP Temp Pulse Resp SpO2 MENTAL STATUS EXAMINATION: Appearance: Appropriately groomed, appears stated age Behavior: Appropriately engaged Psychomotor: No psychomotor agitation Cognition Level of Consciousness: Awake and alert. No fluctuation in wakefulness. Orientation: Grossly oriented Memory: Intact Attention/Concentration: Good Fund of Knowledge: Able to demonstrate an awareness of current events. Mood: Anxious Affect: Congruent to mood Speech/Language: Appropriate tone, prosody, oneal, phonetics, and syntax Thought Form: Goal-directed. No loosening of associations. Thought Content: No delusions noted or endorsed. Perceptual Disturbances: Did not appear to respond to auditory stimuli. Safety: Suicidal Ideations: No suicidal ideation, intent or plan. Homicidal Ideations: No homicidal ideation, intent or plan. Insight: Appropriate Judgment: Appropriate I spent a total of 38 minutes on the date of the service which included preparing to see the patient, [id number] patient care, completing clinical documentation, and counseling and educating the patient/family/caregiver, ordering medications/labs. Donna Granados APRN.CNP January 27, 2022 3:32 PM This note was partially generated using [employer] voice recognition system. Note was reviewed for accuracy. There may be minor misspellings or grammar miscues with [employer] voice recognition. documented in this encounter [facility] 12-24-2021 Instructions Donna Granados APRN.CNP - 12/24/2021 10:37 AM EDT Calixto Kauffman, It was good to talk with you today. Below is a summary of the plan that we discussed during your appointment for reference. Of course, if you have any questions or concerns do not hesitate to reach out to me via a message or call. Vnekatesh, Donna Granados APRN.CNP PLAN AND FOLLOW UP: YOU SHOULD SEEK IMMEDIATE MEDICAL ATTENTION AT THE NEAREST EMERGENCY DEPARTMENT OR BY CALLING 911, IF ANY OF THE FOLLOWING OCCURS: - New or worsening thoughts of harming yourself (suicidal thoughts) or others (homicidal thoughts) - Not feeling safe at home or worrying about your ability to remain safe at home If you are having thoughts of harming yourself or others, then you can: - Call the National Suicide Hotline at 1-690-KKPHTUP ( ) or 3-235-030-TALK (3351) - Text 4HOPE to 178614 Medication Update: 1. Lamictal 100 mg take 1 tablet once every evening. 2. Propanolol 20 mg take 1 tablet twice daily during the day. 3. Continue Lexapro, trazodone, Minipress at the same dose. 4. Xanax 0.5 mg -take 1 tablet twice daily only if needed for increased feelings of panic. 5. Continue Adderall as prescribed by PCP. Next appointment: --Schedule in 4 weeks or sooner if needed -- You may call the department appointment line at [phone] to schedule your appointment. -- Please call my nurse Cassy at [phone] or send me a message in [employer] with any questions or concerns between appointments. documented in this encounter [facility] 12-24-2021 History of Presen t illness Narrative Images from the original note were not included. PSYC FOLLOW UP - PSYCHIATRIC PROGRESS NOTE DIAGNOSIS: 1. Bipolar 2 Disorder 2. Generalized Anxiety Disorder 3. Panic disorder without agoraphobia GAF: -60-51 Moderate symptoms or moderate difficulty in social, occupational or school functioning. TREATMENT PLAN: 1. Increase Lamictal to 100 mg to address her bipolar symptoms. I have asked the patient to take this in the evening time to see if the increased dose helps improve her sleep quality. 2. Add propanolol to address her physical symptoms of anxiety during the day. 3. Continue to work on reducing her reliance on Xanax. We discussed changing the dosage to 0.5 mg twice daily instead of 1 mg so that she is able to gradually tolerate a lower dose. 4. Patient will complete her lab work prior to her Xanax being refilled. She is aware and in agreement. 5. Continue Lexapro at the same dose. 6. Obtain an EKG. Patient is aware to schedule an appointment for this. 7. Continue trazodone at the lower dose as it is helping with her sleep and she does report a decrease in binge eating behavior from it. 8. Continue Adderall and Minipress as prescribed by her PCP. 9. Follow-up with this provider in 4 weeks. Medication Update: 1. Lamictal 100 mg take 1 tablet once every evening. 2. Propanolol 20 mg take 1 tablet twice daily during the day. 3. Continue Lexapro, trazodone, Minipress at the same dose. 4. Xanax 0.5 mg -take 1 tablet twice daily only if needed for increased feelings of panic. 5. Continue Adderall as prescribed by PCP. The effects and side effects of all the medications were reviewed in detail with the patient. She is aware of the rash side effect associated with the lamictal. PDMP report was reviewed and found to be appropriate without any signs of misuse or diversion. Patient is in agreement with the treatment plan. She is aware to reach out with any questions, concerns, or worsening of symptoms prior to the next appointment. CC: Follow up regarding her mood and anxiety With the patient consent, visit was performed virtually. HPI: Cheryl Estrella Lover is a 36 year old Female with a history of Bipolar disorder, SERGIO and Panic disorder presenting today for follow-up. Date of last visit: 11/12/2021 Plan from last visit: 1. Start Lamictal to help with her depressive symptoms. 2. Continue Lexapro at the same dose. 3. Decrease Trazodone to 75 mg to see if it helps her manage the side effect of night time eating. 4. Continue Adderall as prescribed by the PCP. Discussed the possible interference of Adderall in her sleep difficulties. 5. Encouraged to complete lab work this week. Aware that xanax will only be refilled after she completes the urine tox screen. 6. Consider adding propranolol if patient continues to struggle with somatic symptoms of anxiety. 7. Continue to abstain from alcohol use. 8. Revisit the topic of psychotherapy as patient is not interested in pursuing it currently. 9. Follow up in 4 weeks. It is important to note that patient reached out to this provider on 12/15/2021 to share that she was inpatient at [facility] and they had increased her Lexapro dose to 20 mg. Patient was supposed to drop off her discharge paperwork for his provider to review. No discharge paperwork has been received by this provider from either the patient or that hospital. Today Cheryl shares that she has been much better. The medication combination of Lamictal and Lexapro has been helping her anxiety and mood. Shares that she had a fallout with a friend. The friend cheated on her with patient's ex. This put me in a dark place . She also had to put one of her cat to sleep. She voluntary admitted herself at [facility]. It was a helpful experience for her. She had good support from the staff there. She has been trying to limit the xanax use. Able to use a lower dose of xanax at times. Is concerned about her anxiety related to the upcoming court proceedings. Requested a letter from this provider regarding her treatment initiation and progress. Continues to struggle with somatic symptoms of anxiety. Does report chest tightness, heart palpitations, and body aches. She tends to grind teeth due to high anxiety. Denies shaking. Reports struggling with physical symptoms of anxiety 1 to 2 times a day. Sometimes they persist all day. Takes Prazosin at night for nightmares. We discussed utilizing propranolol during the day for physical symptoms of anxiety. She has been waking up multiple times at night. Continue Trazodone at the 75 mg dose. Decreased binge eating episodes at the Discussed increasing Lamictal to address her depressive symptoms. Interval Progress: Improved Risks and benefits of the medication, including any black box warnings, were discussed with the patient. Social History: See HPI PATIENT DATA: Generalized Anxiety Disorder Scale (SERGIO-7) SERGIO - 7 SCORES 11/11/2021 11/12/2021 12/23/2021 SERGIO-7 Score 16 16 15 (0-4) minimal anxiety, (5-9) mild anxiety, (10-14) moderate anxiety, (15-21) severe anxiety Patient Health Questionnaire (PHQ-9) PHQ-9 11/11/2021 11/12/2021 12/23/2021 Score 21 21 14 (0-4) minimal depression, (5-9) mild depression, (10-14) moderate depression, (15-19) moderately severe depression, (20-27) severe depression ROS: General: Negative for fever, malaise, unintentional weight loss HEENT: Negative for recent changes in vision or hearing, no nasal drainage Respiratory: Negative for cough, wheezing or SOB Cardiovascular: Negative for chest pain GI: Negative for nausea, vomiting, change in bowel habits MUSCULOSKELETAL: Negative for acute back or joint pain SKIN: Negative for rash NEURO: Negative for headaches, seizures, focal neurological deficits All other systems negative. VITAL SIGNS: None obtained due to virtual visit BP Temp Pulse Resp SpO2 MENTAL STATUS EXAMINATION: Appearance: Appropriately groomed, appears stated age Behavior: Appropriately engaged Psychomotor: No psychomotor agitation Cognition Level of Consciousness: Awake and alert. No fluctuation in wakefulness. Orientation: Grossly oriented Memory: Intact Attention/Concentration: Good Fund of Knowledge: Able to demonstrate an awareness of current events. Mood: Anxious Affect: Congruent to mood Speech/Language: Appropriate tone, prosody, oneal, phonetics, and syntax Thought Form: Goal-directed. No loosening of associations. Thought Content: No delusions noted or endorsed. Perceptual Disturbances: Did not appear to respond to auditory stimuli. Safety: Suicidal Ideations: No suicidal ideation, intent or plan. Homicidal Ideations: No homicidal ideation, intent or plan. Insight: Appropriate Judgment: Appropriate I spent a total of 38 minutes on the date of the service which included preparing to see the patient, [id number] patient care, completing clinical documentation, and counseling and educating the patient/family/caregiver, ordering medications/labs. Donna Granados APRN.CNP December 24, 2021 9:56 AM documented in this encounter [facility] 12-23-2021 Miscellaneous Notes The following approved medication requests have been transmitted electronically. Signed Prescriptions Disp Refills dextroamphetamine-amphetamine (ADDERALL) 20 mg tablet 60 tablet 0 Sig: Take 1 tablet by mouth twice daily for 30 days. DINA Class: C-II ALIZA: No Authorizing Provider: RAGHAV RAMAN APRN.CNP PDMP website checked and validated. All prescriptions have been APPROPRIATELY filled. No suspicious activity was identified. 12/23/21 by Raghav Raman CNP. Last office visit: 10/23/21 F/u scheduled: none Last refilled on: adderall #60 on 11/04/21 Jennifer Hilliard Ma documented in this encounter [facility] 12-08-2021 Miscellaneous Notes Attempted to reach the patient multiple times via phone to discuss the concerns she shared in her last [employer] message. documented in this encounter [facility] 11-27-2021 Miscellaneous Notes Patient has been identified by name and date of : Yes Pending Prescriptions Disp Refills ALPRAZOLAM 1 MG TABLET 30 tablet 0 Sig: Take 1 tablet by mouth once daily as needed for up to 30 days. DINA Class: C-IV ALIZA: No ESCITALOPRAM 10 MG TABLET 30 tablet 0 Sig: Take 1 tablet by mouth once daily. ALIZA: No RX INSTRUCTIONS: Patient aware RX will be sent to pharmacy. No need to notify patient. Follow up 12/24/2021, Patient also wanted to make you aware that she has an intake appointment at [facility] for possible admission. Cassy Chicas LPN documented in this encounter [facility] 11-13-2021 Instructions Donna Granados APRN.CNP - 11/13/2021 11:54 AM EDT Calixto Kauffman, Below is a summary of the plan that we discussed during your appointment for reference. Of course, if you have any questions or concerns do not hesitate to reach out to me via a message or call. Venkatesh, Donna Granados APRN.JUANY PLAN AND FOLLOW UP: YOU SHOULD SEEK IMMEDIATE MEDICAL ATTENTION AT THE NEAREST EMERGENCY DEPARTMENT OR BY CALLING 911, IF ANY OF THE FOLLOWING OCCURS: - New or worsening thoughts of harming yourself (suicidal thoughts) or others (homicidal thoughts) - Not feeling safe at home or worrying about your ability to remain safe at home If you are having thoughts of harming yourself or others, then you can: - Call the National Suicide Hotline at 5-644-IYIDCFT ( ) or 3-975-920-TALK (9522) - Text 4HOPE to 068149 Medication Update: 1. Lamictal 25 mg - take 1 tablet once daily for 2 weeks, then take 2 tablets once daily after that. 2. Trazodone 150 mg - take 1/2 tablet at bedtime. 3. Continue Lexapro at the same dose. Lab work: Complete lab work prior to the next appointment. Next appointment: --Schedule in 4 weeks or sooner if needed -- You may call the department appointment line at [phone] to schedule your appointment. -- Please call my nurse Cassy at [phone] or send me a message in [employer] with any questions or concerns between appointments. documented in this encounter [facility] 11-12-2021 History of Presen t illness Narrative Images from the original note were not included. PSYC FOLLOW UP - PSYCHIATRIC PROGRESS NOTE DIAGNOSIS: 1. SERGIO 2. Bipolar 2 Disorder 3. History of ADHD 4. Possible cluster B traits GAF: -60-51 Moderate symptoms or moderate difficulty in social, occupational or school functioning. TREATMENT PLAN: 1. Start Lamictal to help with her depressive symptoms. 2. Continue Lexapro at the same dose. 3. Decrease Trazodone to 75 mg to see if it helps her manage the side effect of night time eating. 4. Continue Adderall as prescribed by the PCP. Discussed the possible interference of Adderall in her sleep difficulties. 5. Encouraged to complete lab work this week. Aware that xanax will only be refilled after she completes the urine tox screen. 6. Consider adding propranolol if patient continues to struggle with somatic symptoms of anxiety. 7. Continue to abstain from alcohol use. 8. Revisit the topic of psychotherapy as patient is not interested in pursuing it currently. 9. Follow up in 4 weeks. Medication Update: 1. Lamictal 25 mg - take 1 tablet once daily for 2 weeks, then take 2 tablets once daily after that. 2. Trazodone 150 mg - take 1/2 tablet at bedtime. 3. Continue Lexapro at the same dose. The effects and side effects of all the medications were reviewed in detail with the patient. She is aware of the rash side effect related to Lamictal. Patient is in agreement with the treatment plan and aware to reach out with any questions, concerns, or worsening of symptoms prior to the next appointment. CC: Follow up regarding mood and anxiety With the patient consent, visit was performed virtually. HPI: Cheryl Joaquinr is a 36 year old Female with a history of SERGIO, Bipolar 2 disorder, history of ADHD and cluster B traits presenting today for follow-up. Date of last visit: 10/27/2021 Plan from last visit: 1. Start Lexapro to help with her anxiety. 2. Utilize Xanax only as needed for increased episodes of anxiety or panic. 3. Continue Trazodone and Adderall as prescribed by PCP. 4. Completely abstain from alcohol use. 5. Consider propranolol for somatic symptoms of anxiety at the next appointment. 6. Also consider adding a mood stabilizer if she continues to struggle with depression after improvement in her anxiety. 7. Revisit the topic of psychotherapy. Patient is not interested in it currently. 8. Complete lab work to monitor potassium level as well as another urine tox screen. Today Cheryl shares that things have been better since last appointment. Feels that Lexapro is starting to help with anxiety. She went three days without taking any xanax. She continues to struggle with anxiety and over thinking at times. She has been struggling with more feelings of depression. She has been abstaining from alcohol since last appointment. Patient did not complete her urine tox lab work or her CMP to monitor her potassium level. Discussed the importance of completing her labwork. Patient reports anxiety related to needles but verbalizes that she will complete the lab work this week. She is concerned about Trazodone increasing her appetite at night. It does help her stay asleep. She is concerned about her weight gain due to it. She is also not as active as she was in the past. We discussed that the current dose of Trazodone might be contributing to an increase in appetite as it is an anti-depressant dose and not just a sleep dose. Patient is in agreement to reduce the Trazodone to 75 mg . We discussed the initial discomfort that she might experience due to her brain adjusting to a deficit in Serotonin. She was engaged in the discussion and verbalized understanding. Patient shares that she had tolerated Lamictal in the past and it was beneficial for her depressive symptoms. She is in agreement to restart Lamictal. She also enquired about ECT. We discussed the indications, risks, and benefits of this treatment. She would like to wait to consider this form of treatment yet. Interval Progress: Improved Risks and benefits of the medication, including any black box warnings, were discussed with the patient. Social History: No change PATIENT DATA: Generalized Anxiety Disorder Scale (SERGIO-7) SERGIO - 7 SCORES 11/11/2021 11/11/2021 11/12/2021 SERGIO-7 Score 16 16 16 (0-4) minimal anxiety, (5-9) mild anxiety, (10-14) moderate anxiety, (15-21) severe anxiety Patient Health Questionnaire (PHQ-9) PHQ-9 11/11/2021 11/11/2021 11/12/2021 Score 21 21 21 (0-4) minimal depression, (5-9) mild depression, (10-14) moderate depression, (15-19) moderately severe depression, (20-27) severe depression ROS: General: Negative for fever, malaise, unintentional weight loss HEENT: Negative for recent changes in vision or hearing, no nasal drainage Respiratory: Negative for cough, wheezing or SOB Cardiovascular: Negative for chest pain GI: Negative for nausea, vomiting, change in bowel habits MUSCULOSKELETAL: Negative for acute back or joint pain SKIN: Negative for rash NEURO: Negative for headaches, seizures, focal neurological deficits All other systems negative. VITAL SIGNS: None obtained due to virtual visit. BP Temp Pulse Resp SpO2 MENTAL STATUS EXAMINATION: Appearance: Appropriately groomed, appears stated age Behavior: Appropriately engaged Psychomotor: No psychomotor agitation Cognition Level of Consciousness: Awake and alert. No fluctuation in wakefulness. Orientation: Grossly oriented Memory: Intact Attention/Concentration: Good Fund of Knowledge: Able to demonstrate an awareness of current events. Mood: Euthymic Affect: Full and appropriate to topic. Speech/Language: Appropriate tone, prosody, oneal, phonetics, and syntax Thought Form: Goal-directed. No loosening of associations. Thought Content: No delusions noted or endorsed. Perceptual Disturbances: Did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 (Patient taking differently: Take 40 mg by mouth as needed. ) rizatriptan ([employer]INING SPECIALIST) 5 mg disintegrating tablet Take 1 tablet by mouth as needed. May repeat in 2 hours if needed lamoTRIgine (LAMICTAL) 200 mg tablet Take 1 tablet by mouth once daily. fluticasone (FLONASE) 50 mcg/actuation nasal spray Use 2 Sprays in each nostril once daily. Rinse mouth after use. No current facility-administered medications on file prior to visit. Social History Social History Tobacco Use Smoking status: Current Every Day Smoker Packs/day: 0.00 Last attempt to quit: 04/13/2015 Years since quittin.5 Smokeless tobacco: Never Used Tobacco comment: Pateint only uses the Vape She doesnt smoke nicotine Vaping Use Vaping Use: Some days Substance Use Topics Alcohol use: Yes Comment: occassional Drug use: No Review of Symptoms REVIEW OF SYSTEMS See HPI, otherwise negative EXAM: BP 122/82 (BP Site: Left Arm, BP Position: Sitting, BP Cuff Size: Regular Adult) Pulse 79 Resp 16 Wt 97.5 kg (215 lb) LMP 04/20/2021 (Approximate) SpO2 99% BMI 32.69 kg/m General Appearance: Disheveled, alert, in no acute distress, well-hydrated, well nourished. Psychiatric: very tearful, repetitive in statements, denies SI/HI today, anxious, paranoid, aggressive Health Maintenance List HEPATITIS C SCREENING Never done HIV SCREENING Never done ONE PNEUMOVAX PRIOR TO AGE 65 Never done COVID-19 VACCINE(1) due on 07/20/2022 INFLUENZA(Season Ended) due on 02/25/2022 DEPRESSION SCREENING due on 10/21/2022 PAP TESTING due on 07/12/2023 HPV TESTING due on 07/12/2023 DTAP,TDAP,TD(2 - Td or Tdap) due on 05/21/2029 MENINGOCOCCAL CONJUGATE Aged Out Data reviewed Previous records/office notes, ED records, [facility] report ASSESSMENT/PLAN: 1. Bipolar affective disorder, current episode mixed, current episode severity unspecified (HCC) - ICD9: 296.60, ICD10: F31.60 (primary diagnosis) Patient very tearful, paranoid. Denies SI/HI today. However, previous possible suicide attempt recently as well as in her past. Recent assault on a police communications operator, shelter, multiple charges. Aggressive in behavior at times during assessment. Refusal to fill Xanax and Adderall/controlled substances today due to current mental state as well as recent legal concerns and hx of suicide attempt. Concern for patient's wellbeing-patient continually stating don't pink slip me. After consultation with other providers, police officers were called. They are unable to take her to the hospital/pink slip her because she currently is denying SI/HI. Explained to patient that this provider is concerned for her wellbeing and recommend she go to the hospital and likely psychiatric facility. Patient refusing. Patient was escorted from the office today by police, with concern for staff safety due to patient intermittent aggressiveness. Will try to move up her psychiatric consultation appointment. 2. Alcohol abuse - ICD9: 305.00, ICD10: F10.10 Patient very tearful, paranoid. Denies SI/HI today. However, previous possible suicide attempt recently as well as in her past. Recent assault on a police communications operator, shelter, multiple charges. Aggressive in behavior at times during assessment. Refusal to fill Xanax and Adderall/controlled substances today due to current mental state as well as recent legal concerns and hx of suicide attempt. Concern for patient's wellbeing-patient continually stating don't pink slip me. After consultation with other providers, police officers were called. They are unable to take her to the hospital/pink slip her because she currently is denying SI/HI. Explained to patient that this provider is concerned for her wellbeing and recommend she go to the hospital and likely psychiatric facility. Patient refusing. Patient was escorted from the office today by police, with concern for staff safety due to patient intermittent aggressiveness. Will try to move up her psychiatric consultation appointment. 3. Depressive disorder - ICD9: 311, ICD10: F32.A Patient very tearful, paranoid. Denies SI/HI today. However, previous possible suicide attempt recently as well as in her past. Recent assault on a police communications operator, shelter, multiple charges. Aggressive in behavior at times during assessment. Refusal to fill Xanax and Adderall/controlled substances today due to current mental state as well as recent legal concerns and hx of suicide attempt. Concern for patient's wellbeing-patient continually stating don't pink slip me. After consultation with other providers, police officers were called. They are unable to take her to the hospital/pink slip her because she currently is denying SI/HI. Explained to patient that this provider is concerned for her wellbeing and recommend she go to the hospital and likely psychiatric facility. Patient refusing. Patient was escorted from the office today by police, with concern for staff safety due to patient intermittent aggressiveness. Will try to move up her psychiatric consultation appointment. 4. Panic attacks - ICD9: 300.01, ICD10: F41.0 Patient very tearful, paranoid. Denies SI/HI today. However, previous possible suicide attempt recently as well as in her past. Recent assault on a police communications operator, shelter, multiple charges. Aggressive in behavior at times during assessment. Refusal to fill Xanax and Adderall/controlled substances today due to current mental state as well as recent legal concerns and hx of suicide attempt. Concern for patient's wellbeing-patient continually stating don't pink slip me. After consultation with other providers, police officers were called. They are unable to take her to the hospital/pink slip her because she currently is denying SI/HI. Explained to patient that this provider is concerned for her wellbeing and recommend she go to the hospital and likely psychiatric facility. Patient refusing. Patient was escorted from the office today by police, with concern for staff safety due to patient intermittent aggressiveness. Will try to move up her psychiatric consultation appointment. 5. ADD (attention deficit disorder) without hyperactivity - ICD9: 314.00, ICD10: F98.8 Patient very tearful, paranoid. Denies SI/HI today. However, previous possible suicide attempt recently as well as in her past. Recent assault on a police communications operator, shelter, multiple charges. Aggressive in behavior at times during assessment. Refusal to fill Xanax and Adderall/controlled substances today due to current mental state as well as recent legal concerns and hx of suicide attempt. Concern for patient's wellbeing-patient continually stating don't pink slip me. After consultation with other providers, police officers were called. They are unable to take her to the hospital/pink slip her because she currently is denying SI/HI. Explained to patient that this provider is concerned for her wellbeing and recommend she go to the hospital and likely psychiatric facility. Patient refusing. Patient was escorted from the office today by police, with concern for staff safety due to patient intermittent aggressiveness. Will try to move up her psychiatric consultation appointment. 6. Legal intervention, bystander injured, initial encounter - ICD9: V62.5, E976, ICD10: Y35.92XA Patient very tearful, paranoid. Denies SI/HI today. However, previous possible suicide attempt recently as well as in her past. Recent assault on a police communications operator, shelter, multiple charges. Aggressive in behavior at times during assessment. Refusal to fill Xanax and Adderall/controlled substances today due to current mental state as well as recent legal concerns and hx of suicide attempt. Concern for patient's wellbeing-patient continually stating don't pink slip me. After consultation with other providers, police officers were called. They are unable to take her to the hospital/pink slip her because she currently is denying SI/HI. Explained to patient that this provider is concerned for her wellbeing and recommend she go to the hospital and likely psychiatric facility. Patient refusing. Patient was escorted from the office today by police, with concern for staff safety due to patient intermittent aggressiveness. Will try to move up her psychiatric consultation appointment. Raghav Raman APRN.CNP PDMP website checked and validated. All prescriptions have been APPROPRIATELY filled. No suspicious activity was identified. 10/23/2021 by Raghav Raman CNP. Greater than 50% of 75-minute visit spent face to face or in planning with patient in counseling and education. documented in this encounter [facility] 10-10-2021 Procedure note Radiology Service Progress Note PATIENT NAME: Cheryl Evans DATE OF SERVICE: October 10, 2021 TIME: 1:18 AM PATIENT IDENTITY VERIFICATION COMPLETED USING TWO (2) IDENTIFIERS: Name and Date of confirmed by identification band and Name and Date of obtained from a relative, guardian or prior caregiver.. FALL SCREENING: Has the patient had 2 falls in the last year or 1 fall with injury or currently using an Ambulatory Assistive Device (Walker, Cane, Wheelchair, Crutches, etc.)? Yes, Patient High Risk for Falls What interventions were put in place to prevent falls during this visit? Yellow Falls Risk Wristband Applied PATIENT GENDER DATA: Female. status: : No status: NO. 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 Overview: + urine tox on 11/04/2017 documented as of this encounter (statuses as of 10/26/2021) [facility]2018 History of Past illness Narrative* Problem Noted Date Resolved Date 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 Overview: + urine tox on 11/04/2017 documented as of this encounter (statuses as of 10/28/2021) [facility]2018 History of Past illness Narrative* Problem Noted Date Resolved Date 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 Overview: + urine tox on 11/04/2017 documented as of this encounter (statuses as of 10/30/2021) [place] [id number] History of Past illness Narrative* Problem Noted Date Resolved Date 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 Overview: + urine tox on 11/04/2017 documented as of this encounter (statuses as of 11/04/2021) [address] History of Past illness Narrative* Problem Noted Date Resolved Date 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 Overview: + urine tox on 11/04/2017 documented as of this encounter (statuses as of 11/04/2021) [address] History of Past illness Narrative* Problem Noted Date Resolved Date 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 Overview: + urine tox on 11/04/2017 documented as of this encounter (statuses as of 11/13/2021) [address] History of Past illness Narrative* Problem Noted Date Resolved Date 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 Overview: + urine tox on 11/04/2017 documented as of this encounter (statuses as of 11/27/2021) [facility] History of Past illness Narrative* Problem Noted Date Resolved Date 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 Overview: + urine tox on 11/04/2017 documented as of this encounter (statuses as of 12/08/2021) [address] History of Past illness Narrative* Problem Noted Date Resolved Date 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 Overview: + urine tox on 11/04/2017 documented as of this encounter (statuses as of 12/15/2021) [address] History of Past illness Narrative* Problem Noted Date Resolved Date 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 Overview: + urine tox on 11/04/2017 documented as of this encounter (statuses as of 12/23/2021) [place] [id number] History of Past illness Narrative* Problem Noted Date Resolved Date 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 Overview: + urine tox on 11/04/2017 documented as of this encounter (statuses as of 12/26/2021) [place] [id number] History of Past illness Narrative* Problem Noted Date Resolved Date 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 Overview: + urine tox on 11/04/2017 documented as of this encounter (statuses as of 01/11/2022) [address] History of Past illness Narrative* Problem Noted Date Resolved Date 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 Overview: + urine tox on 11/04/2017 documented as of this encounter (statuses as of 02/02/2022) [address] History of Past illness Narrative* Problem Noted Date Resolved Date 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 Overview: + urine tox on 11/04/2017 documented as of this encounter (statuses as of 02/02/2022) [facility] History of Past illness Narrative* Problem Noted Date Resolved Date 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 Overview: + urine tox on 11/04/2017 documented as of this encounter (statuses as of 02/12/2022) [place] [id number] History of Past illness Narrative* Problem Noted Date Resolved Date 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 Overview: + urine tox on 11/04/2017 documented as of this encounter (statuses as of 03/09/2022) [place] [id number] History of Past illness Narrative* Problem Noted Date Resolved Date 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 Overview: + urine tox on 11/04/2017 documented as of this encounter (statuses as of 03/29/2022) [place] [id number] History of Past illness Narrative* Problem Noted Date Resolved Date 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 Overview: + urine tox on 11/04/2017 documented as of this encounter (statuses as of 04/09/2022) [place] [address] History of Past illness Narrative* Problem Noted Date Resolved Date 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 Overview: + urine tox on 11/04/2017 documented as of this encounter (statuses as of 05/10/2022) [address] History of Past illness Narrative* Problem Noted Date Resolved Date 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 Overview: + urine tox on 11/04/2017 documented as of this encounter (statuses as of 05/10/2022) [place] [id number] History of Past illness Narrative* Problem Noted Date Resolved Date 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 Overview: + urine tox on 11/04/2017 documented as of this encounter (statuses as of 05/11/2022) [address] History of Past illness Narrative* Problem Noted Date Resolved Date 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 Overview: + urine tox on 11/04/2017 documented as of this encounter (statuses as of 05/24/2022) [place] [id number] History of Past illness Narrative* Problem Noted Date Resolved Date 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 Overview: + urine tox on 11/04/2017 documented as of this encounter (statuses as of 06/06/2022) [place] [address] History of Past illness Narrative* Problem Noted Date Resolved Date 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 Overview: + urine tox on 11/04/2017 documented as of this encounter (statuses as of 07/02/2022) [place] [address] History of Past illness Narrative* Problem Noted Date Resolved Date 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 Overview: + urine tox on 11/04/2017 documented as of this encounter (statuses as of 07/06/2022) [place] [address] History of Past illness Narrative* Problem Noted Date Resolved Date 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 Overview: + urine tox on 11/04/2017 documented as of this encounter (statuses as of 07/26/2022) [place] [address] History of Past illness Narrative* Problem Noted Date Resolved Date 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 Overview: + urine tox on 11/04/2017 documented as of this encounter (statuses as of 08/09/2022) [place] [address] History of Past illness Narrative* Problem Noted Date Resolved Date 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 Overview: + urine tox on 11/04/2017 documented as of this encounter (statuses as of 08/24/2022) [facility] History of Past illness Narrative* Problem Noted Date Resolved Date 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 Overview: + urine tox on 11/04/2017 documented as of this encounter (statuses as of 09/13/2022) [facility] History of Past illness Narrative* Problem Noted Date Resolved Date 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 Overview: + urine tox on 11/04/2017 documented as of this encounter (statuses as of 09/30/2022) [facility] History of Past illness Narrative* Problem Noted Date Resolved Date 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 Overview: + urine tox on 11/04/2017 documented as of this encounter (statuses as of 10/01/2022) [address] History of Past illness Narrative* Problem Noted Date Resolved Date 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 Overview: + urine tox on 11/04/2017 documented as of this encounter (statuses as of 10/04/2022) [address] History of Past illness Narrative* Problem Noted Date Resolved Date 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 Overview: + urine tox on 11/04/2017 documented as of this encounter (statuses as of 10/29/2022) [address] History of Past illness Narrative* Problem Noted Date Resolved Date 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 Overview: + urine tox on 11/04/2017 documented as of this encounter (statuses as of 12/24/2022) [address] History of Past illness Narrative* Problem Noted Date Diagnosed Date Resolved Date 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2018 Overview: + urine tox on 11/04/2017 documented as of this encounter (statuses as of 01/03/2023) [facility] History of Past illness Narrative* Problem Noted Date Diagnosed Date Resolved Date 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2018 Overview: + urine tox on 11/04/2017 documented as of this encounter (statuses as of 01/04/2023) [facility] History of Past illness Narrative* Problem Noted Date Diagnosed Date Resolved Date 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2018 Overview: + urine tox on 11/04/2017 documented as of this encounter (statuses as of 01/06/2023) [address] History of Past illness Narrative* Problem Noted Date Diagnosed Date Resolved Date 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2018 Overview: + urine tox on 11/04/2017 documented as of this encounter (statuses as of 02/25/2023) [address] History of Past illness Narrative* Problem Noted Date Diagnosed Date Resolved Date 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2018 Overview: + urine tox on 11/04/2017 documented as of this encounter (statuses as of 03/15/2023) [address] History of Past illness Narrative* Problem Noted Date Diagnosed Date Resolved Date 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2018 Overview: + urine tox on 11/04/2017 documented as of this encounter (statuses as of 03/15/2023) [address] History of Past illness Narrative* Problem Noted Date Diagnosed Date Resolved Date 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2018 Overview: + urine tox on 11/04/2017 documented as of this encounter (statuses as of 04/22/2023) [address] History of Past illness Narrative* Problem Noted Date Diagnosed Date Resolved Date 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2018 Overview: + urine tox on 11/04/2017 documented as of this encounter (statuses as of 05/17/2023) [facility]05-29-2018 History of Past illness Narrative* Problem Noted Date Diagnosed Date Resolved Date 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2018 Overview: + urine tox on 11/04/2017 documented as of this encounter (statuses as of 05/24/2023) [facility] Diagnosis Panic attacks Panic disorder without agoraphobia [facility] Diagnosis Bipolar affective disorder, current episode mixed, current episode severity unspecified (HCC)- Primary Alcohol abuse Alcohol abuse, unspecified Depressive disorder Depressive disorder, not elsewhere classified Panic attacks Panic disorder without agoraphobia ADD (attention deficit disorder) without hyperactivity Attention deficit disorder without mention of hyperactivity Legal intervention, bystander injured, initial encounter [facility] Diagnosis SERGIO (generalized anxiety disorder)- Primary Generalized anxiety disorder Bipolar 2 disorder (HCC) Other bipolar disorders [facility] Diagnosis ADD (attention deficit disorder) without hyperactivity Attention deficit disorder without mention of hyperactivity [facility] Diagnosis Iron deficiency anemia, unspecified iron deficiency anemia type documented [facility] Diagnosis SERGIO (generalized anxiety disorder)- Primary Generalized anxiety disorder Bipolar 2 disorder (HCC) Other bipolar disorders [facility] Diagnosis SERGIO (generalized anxiety disorder) Generalized anxiety disorder [facility] Diagnosis ADD (attention deficit disorder) without hyperactivity Attention deficit disorder without mention of hyperactivity [facility] Diagnosis SERGIO (generalized anxiety disorder)- Primary Generalized anxiety disorder Bipolar 2 disorder (HCC) Other bipolar disorders Panic disorder without agoraphobia [facility]* Diagnosis SERGIO (generalized anxiety disorder) Generalized anxiety disorder documented [facility]* Diagnosis Bipolar 2 disorder (HCC)- Primary Other bipolar disorders Panic disorder without agoraphobia documented [facility]* Diagnosis Bilateral hand pain- Primary Pain in limb Foot pain, bilateral Pain in limb Fatigue, unspecified type Myalgia Mylagia and myositis, unspecified Multiple joint pain Pain in joint, multiple sites Iron deficiency Iron deficiency anemia, unspecified [facility] Diagnosis SERGIO (generalized anxiety disorder) Generalized anxiety disorder [facility]* Diagnosis Panic disorder without agoraphobia- Primary Bipolar 2 disorder (HCC) Other bipolar disorders documented in this encounter [facility] note* Diagnosis Bilateral hand pain- Primary Pain in limb Elevated C-reactive protein (CRP) Bipolar affective disorder, current episode mixed, current episode severity unspecified (HCC) documented in this encounter [facility] note* Diagnosis NO SHOW- Primary [facility] Diagnosis Muscle spasm of back Other symptoms referable to back Acute bilateral thoracic back pain documented in this encounter [facility] note* Diagnosis Encounter for long-term (current) use of medications- Primary Encounter for long-term (current) use of other medications Panic disorder without agoraphobia Bipolar 2 disorder (HCC) Other bipolar disorders documented in this encounter [facility] note* Diagnosis GERD without esophagitis Esophageal reflux documented [facility] this [facility]* Diagnosis Marijuana use- Primary Cannabis abuse, unspecified documented in this encounter [facility] note* Diagnosis Panic disorder without agoraphobia- Primary Bipolar 2 disorder (HCC) Other bipolar disorders Marijuana use Cannabis abuse, unspecified [facility]* Diagnosis NO SHOW- Primary documented in this encounter [facility] note* Diagnosis Bipolar II disorder (HCC)- Primary Other bipolar disorders documented in this encounter [facility] note* Diagnosis Bipolar 2 disorder (HCC)- Primary Other bipolar disorders Panic disorder without agoraphobia Marijuana use Cannabis abuse, unspecified documented in this encounter [facility] note* Diagnosis History of marijuana use- Primary Bipolar II disorder (HCC) Other bipolar disorders Panic disorder without agoraphobia documented in this encounter [facility] note* Diagnosis Encounter for long-term (current) use of medications- Primary Encounter for long-term (current) use of other medications SERGIO (generalized anxiety disorder) Generalized anxiety disorder Panic attacks Panic disorder without agoraphobia Bipolar affective disorder, current episode mixed, current episode severity unspecified (HCC) documented in this encounter [facility] note* Diagnosis SERGIO (generalized anxiety disorder)- Primary Generalized anxiety disorder Panic attacks Panic disorder without agoraphobia Bipolar II disorder (HCC) Other bipolar disorders Occasional use of marijuana [facility]* Diagnosis Encounter for long-term (current) use of medications- Primary Encounter for long-term (current) use of other medications SERGIO (generalized anxiety disorder) Generalized anxiety disorder Bipolar II disorder (HCC) Other bipolar disorders Panic disorder without agoraphobia documented in this encounter [facility] for referral (narrative)* Outpatient Procedure (Routine) - Pending Review Specialty Diagnoses / Procedures Referred By Contac t Referred To [facility] Diagnoses SERGIO (generalized anxiety disorder) Procedures ECG COMPLETE ECG ROUTINE ECG W/LEAST 12 LDS W/I&R Donna Granados APRN.CNP [address] [place] [address] [facility] [place] [address] [place] [address] Referral ID Status Reason Start Date Expiration Date Visits Requested Visits Authorized [id number] Pending Review Auto-Generat ed Referral 12/24/2021 12/24/2022 1 1 [facility] for referral (narrative)* Diagnostic Procedure Only (Routine) - Pending Review Specialty Diagnoses / Procedures Referred By Contac t Referred To Contact XR IMAGING Diagnoses Foot pain, bilateral Procedures XR FOOT GENERAL 3V AP/LAT/OBL BILATERAL RADEX FOOT COMPLETE MINIMUM 3 VIEWS Fredrick Phillips DO [address] [place] [address] Xr Imaging Referral ID Status Reason Start Date Expiration Date Visits Requested Visits Authorized [id number] Pending Review Auto-Generat ed Referral 02/02/2022 03/04/2023 1 1 * Diagnostic Procedure Only (Routine) - Pending Review Specialty Diagnoses / Procedures Referred By Contac t Referred To Contact XR IMAGING Diagnoses Bilateral hand pain Procedures XR HAND GENERAL 3V PA/LAT/OBL BILATERAL RADEX HAND MINIMUM 3 VIEWS Fredrick Phillips, [address] [place] [address] Xr Imaging Referral ID Status Reason Start Date Expiration Date Visits Requested Visits Authorized [id number] Pending Review Auto-Generat ed Referral 02/02/2022 03/04/2023 1 1 [facility] Outpatient Procedure (Routine) - Pending Review Specialty Diagnoses / Procedures Referred By Matias vaughan Referred To Contact [facility] Diagnoses Encounter for long-term (current) use of medications Procedures ECG COMPLETE ECG ROUTINE ECG W/LEAST 12 LDS W/I&R Donna Granados, SECURITY OPERATIONS SPECIALIST.[employer] [address] [place] [address] [facility] [place] [address] [place] [address] Referral ID Status Reason Start Date Expiration Date Visits Requested Visits Authorized [id number] Pending Review Auto-Generat ed Referral 03/14/2023 03/13/2024 1 1 [facility] Summary Purpose Family History No Family History Records FoundNo Family History Records FoundNo Family History Records FoundNo Family History Records FoundNo Family History Records FoundNo Family History Records FoundNo Family History Records Found Advance Directives No Advanced Directives Records FoundDocuments on File Type Date Recorded 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 Advance Directive(s) 10/10/2021 1:22 AM Documents on File Type Date Recorded 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 Advance Directive(s) 10/10/2021 1:22 AM Additional Source Comments INFORMATION SOURCE (unrecogn ized section and content) DATE CREATED AUTHOR AUTHOR'S ORGANIZ ATION 06/13/2018 [facility] DATE CREATED AUTHOR AUTHOR'S ORGANIZ ATION 05/30/2021 [facility] DATE CREATED AUTHOR AUTHOR'S ORGANIZ ATION 10/07/2022 [facility] DATE CREATED AUTHOR AUTHOR'S ORGANIZ ATION 10/07/2022 [facility] DATE CREATED AUTHOR AUTHOR'S ORGANIZ ATION 12/08/2022 [facility] DATE CREATED AUTHOR AUTHOR'S RADHA PORTILLO 06/18/2023 [facility] Source Comments (unrecognize d section and content) In the event this informatio n is protected by the Federal Confidentiality of Alcohol and Drug Abuse Patient Records regulations: The Federal rules restrict any use of the information to criminally investigate or prosecute any alcohol or drug abuse patient.[facility] the event this information is protected by the Federal Confidentiality of Alcohol and Drug Abuse Patient Records regulations: The Federal rules restrict any use of the information to criminally investigate or prosecute any alcohol or drug abuse patient.[facility] the event this information is protected by the Federal Confidentiality of Alcohol and Drug Abuse Patient Records regulations: The Federal rules restrict any use of the information to criminally investigate or prosecute any alcohol or drug abuse patient.[facility] the event this information is protected by the Federal Confidentiality of Alcohol and Drug Abuse Patient Records regulations: The Federal rules restrict any use of the information to criminally investigate or prosecute any alcohol or drug abuse patient.[facility] the event this information is protected by the Federal Confidentiality of Alcohol and Drug Abuse Patient Records regulations: The Federal rules restrict any use of the information to criminally investigate or prosecute any alcohol or drug abuse patient.[facility] the event this information is protected by the Federal Confidentiality of Alcohol and Drug Abuse Patient Records regulations: The Federal rules restrict any use of the information to criminally investigate or prosecute any alcohol or drug abuse patient.[facility] the event this information is protected by the Federal Confidentiality of Alcohol and Drug Abuse Patient Records regulations: The Federal rules restrict any use of the information to criminally investigate or prosecute any alcohol or drug abuse patient.[facility] the event this information is protected by the Federal Confidentiality of Alcohol and Drug Abuse Patient Records regulations: The Federal rules restrict any use of the information to criminally investigate or prosecute any alcohol or drug abuse patient.[facility] the event this information is protected by the Federal Confidentiality of Alcohol and Drug Abuse Patient Records regulations: The Federal rules restrict any use of the information to criminally investigate or prosecute any alcohol or drug abuse patient.[facility] the event this information is protected by the Federal Confidentiality of Alcohol and Drug Abuse Patient Records regulations: The Federal rules restrict any use of the information to criminally investigate or prosecute any alcohol or drug abuse patient.[facility] the event this information is protected by the Federal Confidentiality of Alcohol and Drug Abuse Patient Records regulations: The Federal rules restrict any use of the information to criminally investigate or prosecute any alcohol or drug abuse patient.[facility] the event this information is protected by the Federal Confidentiality of Alcohol and Drug Abuse Patient Records regulations: The Federal rules restrict any use of the information to criminally investigate or prosecute any alcohol or drug abuse patient.[facility] the event this information is protected by the Federal Confidentiality of Alcohol and Drug Abuse Patient Records regulations: The Federal rules restrict any use of the information to criminally investigate or prosecute any alcohol or drug abuse patient.[facility] the event this information is protected by the Federal Confidentiality of Alcohol and Drug Abuse Patient Records regulations: The Federal rules restrict any use of the information to criminally investigate or prosecute any alcohol or drug abuse patient.[facility] the event this information is protected by the Federal Confidentiality of Alcohol and Drug Abuse Patient Records regulations: The Federal rules restrict any use of the information to criminally investigate or prosecute any alcohol or drug abuse patient.[facility] the event this information is protected by the Federal Confidentiality of Alcohol and Drug Abuse Patient Records regulations: The Federal rules restrict any use of the information to criminally investigate or prosecute any alcohol or drug abuse patient.[facility] the event this information is protected by the Federal Confidentiality of Alcohol and Drug Abuse Patient Records regulations: The Federal rules restrict any use of the information to criminally investigate or prosecute any alcohol or drug abuse patient.[facility] the event this information is protected by the Federal Confidentiality of Alcohol and Drug Abuse Patient Records regulations: The Federal rules restrict any use of the information to criminally investigate or prosecute any alcohol or drug abuse patient.[facility] the event this information is protected by the Federal Confidentiality of Alcohol and Drug Abuse Patient Records regulations: The Federal rules restrict any use of the information to criminally investigate or prosecute any alcohol or drug abuse patient.[facility] the event this information is protected by the Federal Confidentiality of Alcohol and Drug Abuse Patient Records regulations: The Federal rules restrict any use of the information to criminally investigate or prosecute any alcohol or drug abuse patient.[facility] the event this information is protected by the Federal Confidentiality of Alcohol and Drug Abuse Patient Records regulations: The Federal rules restrict any use of the information to criminally investigate or prosecute any alcohol or drug abuse patient.[facility] the event this information is protected by the Federal Confidentiality of Alcohol and Drug Abuse Patient Records regulations: The Federal rules restrict any use of the information to criminally investigate or prosecute any alcohol or drug abuse patient.[facility] the event this information is protected by the Federal Confidentiality of Alcohol and Drug Abuse Patient Records regulations: The Federal rules restrict any use of the information to criminally investigate or prosecute any alcohol or drug abuse patient.[facility] the event this information is protected by the Federal Confidentiality of Alcohol and Drug Abuse Patient Records regulations: The Federal rules restrict any use of the information to criminally investigate or prosecute any alcohol or drug abuse patient.[facility] the event this information is protected by the Federal Confidentiality of Alcohol and Drug Abuse Patient Records regulations: The Federal rules restrict any use of the information to criminally investigate or prosecute any alcohol or drug abuse patient.[facility] the event this information is protected by the Federal Confidentiality of Alcohol and Drug Abuse Patient Records regulations: The Federal rules restrict any use of the information to criminally investigate or prosecute any alcohol or drug abuse patient.[facility] the event this information is protected by the Federal Confidentiality of Alcohol and Drug Abuse Patient Records regulations: The Federal rules restrict any use of the information to criminally investigate or prosecute any alcohol or drug abuse patient.[facility] the event this information is protected by the Federal Confidentiality of Alcohol and Drug Abuse Patient Records regulations: The Federal rules restrict any use of the information to criminally investigate or prosecute any alcohol or drug abuse patient.[facility] the event this information is protected by the Federal Confidentiality of Alcohol and Drug Abuse Patient Records regulations: The Federal rules restrict any use of the information to criminally investigate or prosecute any alcohol or drug abuse patient.[facility] the event this information is protected by the Federal Confidentiality of Alcohol and Drug Abuse Patient Records regulations: The Federal rules restrict any use of the information to criminally investigate or prosecute any alcohol or drug abuse patient.[facility] the event this information is protected by the Federal Confidentiality of Alcohol and Drug Abuse Patient Records regulations: The Federal rules restrict any use of the information to criminally investigate or prosecute any alcohol or drug abuse patient.[facility] the event this information is protected by the Federal Confidentiality of Alcohol and Drug Abuse Patient Records regulations: The Federal rules restrict any use of the information to criminally investigate or prosecute any alcohol or drug abuse patient.[facility] the event this information is protected by the Federal Confidentiality of Alcohol and Drug Abuse Patient Records regulations: The Federal rules restrict any use of the information to criminally investigate or prosecute any alcohol or drug abuse patient.[facility] the event this information is protected by the Federal Confidentiality of Alcohol and Drug Abuse Patient Records regulations: The Federal rules restrict any use of the information to criminally investigate or prosecute any alcohol or drug abuse patient.[facility] the event this information is protected by the Federal Confidentiality of Alcohol and Drug Abuse Patient Records regulations: The Federal rules restrict any use of the information to criminally investigate or prosecute any alcohol or drug abuse patient.[facility] the event this information is protected by the Federal Confidentiality of Alcohol and Drug Abuse Patient Records regulations: The Federal rules restrict any use of the information to criminally investigate or prosecute any alcohol or drug abuse patient.[facility] the event this information is protected by the Federal Confidentiality of Alcohol and Drug Abuse Patient Records regulations: The Federal rules restrict any use of the information to criminally investigate or prosecute any alcohol or drug abuse patient.[facility] the event this information is protected by the Federal Confidentiality of Alcohol and Drug Abuse Patient Records regulations: The Federal rules restrict any use of the information to criminally investigate or prosecute any alcohol or drug abuse patient.[facility] the event this information is protected by the Federal Confidentiality of Alcohol and Drug Abuse Patient Records regulations: The Federal rules restrict any use of the information to criminally investigate or prosecute any alcohol or drug abuse patient.[facility] the event this information is protected by the Federal Confidentiality of Alcohol and Drug Abuse Patient Records regulations: The Federal rules restrict any use of the information to criminally investigate or prosecute any alcohol or drug abuse patient.[facility] the event this information is protected by the Federal Confidentiality of Alcohol and Drug Abuse Patient Records regulations: The Federal rules restrict any use of the information to criminally investigate or prosecute any alcohol or drug abuse patient.[facility] the event this information is protected by the Federal Confidentiality of Alcohol and Drug Abuse Patient Records regulations: The Federal rules restrict any use of the information to criminally investigate or prosecute any alcohol or drug abuse patient.[facility] the event this information is protected by the Federal Confidentiality of Alcohol and Drug Abuse Patient Records regulations: The Federal rules restrict any use of the information to criminally investigate or prosecute any alcohol or drug abuse patient.[facility] the event this information is protected by the Federal Confidentiality of Alcohol and Drug Abuse Patient Records regulations: The Federal rules restrict any use of the information to criminally investigate or prosecute any alcohol or drug abuse patient.[facility] the event this information is protected by the Federal Confidentiality of Alcohol and Drug Abuse Patient Records regulations: The Federal rules restrict any use of the information to criminally investigate or prosecute any alcohol or drug abuse patient.[facility] Reason for Visit (unrecogniz ed section and content) Reason Comments Results 10/10 Reason Comments New Patient Evaluation Specialty Diagnoses / Procedures Referred By Matias vaughan Referred To Contact Diagnoses Panic attacks Bipolar affective disorder, current episode mixed, current episode severity unspecified (HCC) Depressive disorder Procedures CONSULT TO PSYCHIATRY OFFICE/OUTPATIENT NEW HIGH MDM 60-74 MINUTES Fredrick Phillips, DO [address] [place] [address] Referral ID Status Reason Start Date Expiration Date Visits Requested Visits Authorized [id number] Pending Review PCP Requested Referral 07/20/2021 07/20/2022 1 1 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 Date Comments Refill Request 11/03/2021 Reason Comments Follow Up Depression Anxiety 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 Date Comments Refill Request 11/26/2021 Reason Comments Patient Question 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 Date Comments Refill Request 12/22/2021 Reason Comments Follow Up Anxiety Reason Comments Anxiety Bipolar Disorder Follow Up Reason Comments Arthritis 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 Date Comments Refill Request 02/11/2022 Reason Comments Follow Up Reason Comments Follow Up 2 months Reason Comments No Show 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 Date Comments Refill Request 05/10/2022 Reason Comments Refill Request 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 Date Comments Refill Request 07/01/2022 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 Date Comments Refill Request 07/05/2022 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 Date Comments Refill Request 08/08/2022 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 Date Comments ECT Referral 08/24/2022 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 Date Comments Steam Bone Press Tender - Other 10/01/2022 ECT Reason Comments Patient Update 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 Date Comments Refill Request 12/31/2022 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 Date Comments Refill Request 01/05/2023 Reason Comments Follow Up 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 Date Comments Refill Request 03/15/2023 Care Teams (unrecognized sec tion and content) Remot[employer]oted Vehicle Controller Relationship Specialty Start Date End Date Fredrick Phillips, DO [address] [place] [address] PCP - General Family Practice 10/29/15 Remotely [employer]oted Vehicle Controller Relationship Specialty Start Date End Date Fredrick Phillips, DO [address] [facility] [address] PCP - General Family Practice 10/29/15 Remotely Piloted Vehicle Controller Relationship Specialty Start Date End Date Fredrick Phillips, DO [address] [facility] [address] PCP - General Family Practice 10/29/15 Remotely Piloted Vehicle Controller Relationship Specialty Start Date End Date Fredrick Phillips, DO [address] [facility] [place] [address] PCP - General Family Practice 10/29/15 Remotely Piloted Vehicle Controller Relationship Specialty Start Date End Date Fredrick Phillips, DO [address] [place] [address] PCP - General Family Practice 10/29/15 Remotely Piloted Vehicle Controller Relationship Specialty Start Date End Date Fredrick Phillips, DO [address] [place] [address] PCP - General Family Practice 10/29/15 Remotely Piloted Vehicle Controller Relationship Specialty Start Date End Date Fredrick Phillips, DO [address] [place] [address] PCP - General Family Practice 10/29/15 Remotely Piloted Vehicle Controller Relationship Specialty Start Date End Date Fredrick Phillips, DO [address] [place] [address] PCP - General Family Practice 10/29/15 Remotely Piloted Vehicle Controller Relationship Specialty Start Date End Date Fredrick Phillips, DO [address] [place] [address] PCP - General Family Practice 10/29/15 Remotely Piloted Vehicle Controller Relationship Specialty Start Date End Date Fredrick Phillips, DO [address] [place] [address] PCP - General Family Practice 10/29/15 Remotely Piloted Vehicle Controller Relationship Specialty Start Date End Date Fredrick Phillips, DO [address] [place] [address] PCP - General Family Practice 10/29/15 Remotely Piloted Vehicle Controller Relationship Specialty Start Date End Date Fredrick Phillips, DO [address] [place] [address] PCP - General Family Practice 10/29/15 Remotely Piloted Vehicle Controller Relationship Specialty Start Date End Date Fredrick Phillips, DO [address] [place] [address] PCP - General Family Practice 10/29/15 Remotely Piloted Vehicle Controller Relationship Specialty Start Date End Date Fredrick Phillips, DO [address] [place] [address] PCP - General Family Medicine 10/29/15 Remotely Piloted Vehicle Controller Relationship Specialty Start Date End Date Fredrick Phillips, DO [address] [place] [address] PCP - General Family Medicine 10/29/15 Remotely Piloted Vehicle Controller Relationship Specialty Start Date End Date Fredrick Phillips, DO [address] [place] [address] PCP - General Family Medicine 10/29/15 Remotely Piloted Vehicle Controller Relationship Specialty Start Date End Date Fredrick Phillips, DO [address] [place] [address] PCP - General Family Medicine 10/29/15 Remotely Piloted Vehicle Controller Relationship Specialty Start Date End Date Fredrick Phillips, DO [address] [place] [address] PCP - General Family Medicine 10/29/15 Remotely Piloted Vehicle Controller Relationship Specialty Start Date End Date Fredrick Phillips, DO [address] [place] [address] PCP - General Family Medicine 10/29/15 Remotely Piloted Vehicle Controller Relationship Specialty Start Date End Date Fredrick Phillips, DO [address] [place] [address] PCP - General Family Medicine 10/29/15 Remotely Piloted Vehicle Controller Relationship Specialty Start Date End Date Fredrick Phillips, DO [address] [place] [address] PCP - General Family Medicine 10/29/15 Remotely Piloted Vehicle Controller Relationship Specialty Start Date End Date Fredrick Phillips, DO [address] [place] [address] PCP - General Family Medicine 10/29/15 Remotely Piloted Vehicle Controller Relationship Specialty Start Date End Date Fredrick Phillips, DO [address] [place] [address] PCP - General Family Medicine 10/29/15 Remotely [employer]oted Vehicle Controller Relationship Specialty Start Date End Date Fredrick Phillips, DO [address] [place] [address] PCP - General Family Medicine 10/29/15 Ariella Cortes, RN Registered Nurse Psychiatry 08/30/22 Remotely [employer] Vehicle Controller Relationship Specialty Start Date End Date Fredrick Phillips, DO [address] [place] [address] PCP - General Family Medicine 10/29/15 Ariella Cortes, RN Registered Nurse Psychiatry 08/30/22 Remotely Piloted Vehicle Controller Relationship Specialty Start Date End Date Fredrick Phillips, DO [address] [place] [address] PCP - General Family Medicine 10/29/15 Ariella Cortes, RN Registered Nurse Psychiatry 08/30/22 Remotely Piloted Vehicle Controller Relationship Specialty Start Date End Date Fredrick Phillips, DO [address] [place] [address] PCP - General Family Medicine 10/29/15 Ariella Cortes, RN Registered Nurse Psychiatry 08/30/22 Remotely Piloted Vehicle Controller Relationship Specialty Start Date End Date Fredrick Phillips, DO [address] [place] [address] PCP - General Family Medicine 10/29/15 Ariella Cortes, RN Registered Nurse Psychiatry 08/30/22 Remotely Piloted Vehicle Controller Relationship Specialty Start Date End Date Fredrick Phillips, DO [address] [place] [address] PCP - General Family Medicine 10/29/15 Ariella Cortes, RN Registered Nurse Psychiatry 08/30/22 Remotely Piloted Vehicle Controller Relationship Specialty Start Date End Date Fredrick Phillips DO [address] [facility] [place] [address] PCP - General Family Medicine 10/29/15 Ariella Cortes RN Registered Nurse Psychiatry 08/30/22 Remotely Piloted Vehicle Controller Relationship Specialty Start Date End Date Fredrick Phillips DO [address] [facility] [address] PCP - General Family Medicine 10/29/15 Ariella Cortes RN Registered Nurse Psychiatry 08/30/22 Remotely Piloted Vehicle Controller Relationship Specialty Start Date End Date Fredrick Phillips DO [address] [facility] [address] PCP - General Family Medicine 10/29/15 Ariella Cortes RN Registered Nurse Psychiatry 08/30/22 Remotely Piloted Vehicle Controller Relationship Specialty Start Date End Date Fredrick Phillips DO [address] [facility] [address] PCP - General Family Medicine 10/29/15 Ariella Cortes, RN Registered Nurse Psychiatry 08/30/22 Remotely Piloted Vehicle Controller Relationship Specialty Start Date End Date Fredrick Phillips DO [address] [facility] [place] [address] PCP - General Family Medicine 10/29/15 Ariella Cortes RN Registered Nurse Psychiatry 08/30/22 Remotely Piloted Vehicle Controller Relationship Specialty Start Date End Date Fredrick Phillips DO [address] [facility] [address] PCP - General Family Medicine 10/29/15 Ariella Cortes RN Registered Nurse Psychiatry 08/30/22 FOR RECORDS PERTAINING TO PATIENTS WHO ARE OR HAVE BEEN ENROLLED IN A CHEMICAL DEPENDENCY/SUBSTANCEABUSE PROGRAM, SOME INFORMATION MAY BE OMITTED. This clinical summary was aggregated from multiple sources. Caution should be exercised in using it in the provision of clinical care. This summary normalizes information from multiple sources, and as a consequence, information in this document may materially change the coding, format and clinical context of patient data. In addition, data may be omitted in some cases. CLINICAL DECISIONS SHOULD BE BASED ON THE PRIMARY CLINICAL RECORDS. [facility]. provides no warranty or guarantee of the accuracy or completeness of information in this document.
[2023-06-23 20:30] VITALS: PULSE 87; RESP 20
[2023-06-23] MEDS: Ipratropium/Albuterol Sulfate 3 ML AMPUL.NEB INHALATION (20:30)
[2023-06-23 20:55] VITALS: RESP 20; O2SAT 96
--- NOTE | 2023-06-23 20:57 | EDS_ITS ---
HPI History of Present Illness Chief Complaint: Cold Sx Informant: patient Narrative Narrative: Patient seen here 3 days ago diagnosed with influenza, and for the last couple days she has been having some chest tightness and shortness of breath due to wheezing. She is not an asthmatic that she knows of. She denies any other new symptoms other than just feeling malaise. [facility] Medical History Anxiety Bipolar disorder Borderline personality disorder Home Medications escitalopram oxalate 20 mg tablet 20 mg PO DAILY 04/27/22 [History Last Taken 06/19/23] trazodone 150 mg tablet 150 mg PO QHS 04/27/22 [History Last Taken 06/19/23] lamotrigine 150 mg tablet 150 mg PO DAILY 06/20/23 [History Last Taken 06/19/23] norgestimate 0.25 mg-ethinyl estradiol 35 mcg tablet (Kaitlyn) 1 tab PO DAILY 06/20/23 [History Last Taken 06/19/23] olanzapine 20 mg tablet 20 mg PO QHS 06/20/23 [History Last Taken 06/19/23] omeprazole 40 mg capsule,delayed release 40 mg PO DAILY 06/20/23 [History Last Taken 06/19/23] albuterol sulfate 90 mcg/actuation aerosol inhaler (Ventolin HFA) 1 - 2 puff inhalation Q4H PRN PRN Wheezing ##1 06/23/23 [Rx Last Taken Unknown] Allergy/AdvReac Type Severity Reaction Status Date / Time No Known Allergies Allergy Verified 06/23/23 19:01 Surgical History H/O section History of carpal tunnel surgery Hx of cholecystectomy Social History Smoking Status: Current every day smoker tobacco type: e-cigarettes substance use type: does not use ROS ROS ED Constitutional Constitutional ED: Denies chills or fever(s) ENT ENT ED: Reports nasal congestion, rhinorrhea and sore throat Cardiovascular Cardiovascular: Denies palpitations or radiating jaw, neck or arm pain Respiratory/Chest Respiratory/Chest: Reports chest tightness, cough, dyspnea and wheezing Gastrointestinal Gastrointestinal: Denies abdominal pain, diarrhea, nausea or vomiting Genitourinary Genitourinary ED: Denies dysuria or hematuria Musculoskeletal Musculoskeletal: Denies myalgias or neck pain Integumentary Denies abscess or rash Neurologic Neurologic: Denies headache(s), paresthesias or weakness Psychiatric Psychiatric: Denies depression or suicidal thoughts Endocrine Endocrinology: Denies polydipsia or polyuria EXAM Physical Exam Const Vital Signs: 06/23/23 19:01 06/23/23 20:55 06/23/23 20:55 Temperature 96.8 F L Temperature Source Temporal Pulse Rate 96 Respiratory Rate 22 H 20 H Respiratory Effort Short of Breath Respiratory Pattern Tachypnea Blood Pressure 114/90 H Blood Pressure Mean 98 Pulse Ox 97 96 Oxygen Delivery Method Room Air Room Air 06/23/23 20:30 Temperature Temperature Source Pulse Rate 87 Respiratory Rate 20 H Respiratory Effort Respiratory Pattern Normal Blood Pressure Blood Pressure Mean Pulse Ox Oxygen Delivery Method Positive well nourished, well developed and obese General Appearance ED: well developed and NAD Nutritional Appearance: obese HEENT Reports moist mucous membranes normocephalic and atraumatic Throat: Negative for posterior oropharynx abnormal Eyes PERRL and EOMs intact bilaterally Neck no lymphadenopathy, supple and no meningeal signs Resp normal respiratory effort Resp Narrative: Few biapical end expiratory wheezes otherwise clear. Conversive in full sentences no distress. Cardio no murmurs Rate: regular rate; Negative for tachycardic Rhythm: regular rhythm Neuro oriented x3, CN's II-XII intact bilaterally and no sensory deficits noted Sensorium / Orientation: alert Motor Exam: strength 5/5 throughout Skin Lesions: no lesions Rashes: no rashes MDM MDM MDM Narrative Medical decision making narrative: 2 view chest x-ray my interpretation shows no pneumonia associated with this influenza. Reassured, she was given a duo nebulizer treatment to help her wheezing, and prescribed albuterol MDI to use as needed. Otherwise supportive care continued and advised. Radiography Diagnostic Testing: Clinical Impression(s) from Imaging Studies Chest X-Ray 06/23/23 20:05 IMPRESSION: 1. Minimal atelectasis at the LEFT lung base. Chronic interstitial and pleural thickening is an additional consideration. 2. Remaining lung zones are clear. 3. No congestive failure. Electronically Signed: Yovani Leal MD at 20:20 EST , Discharge Plan Triage Chief Complaint: Cold Sx ED Provider: Lyndon Horvath Dx/Rx/DC Orders Clinical Impression: Influenzal bronchitis Instructions: ED Bronchitis, No Antibiotic (Adult) Prescriptions: New albuterol sulfate [Ventolin HFA] 90 mcg/actuation HFA aerosol inhaler 1 - 2 puff inhalation Q4H PRN PRN (Reason: Wheezing) Qty: 1 0RF No Action trazodone 150 mg tablet 150 mg PO QHS Patient Comments: TAKE 2 TABLETS BY MOUTH EVERY DAY AT BEDTIME escitalopram oxalate 20 mg tablet 20 mg PO DAILY Patient Comments: TAKE 1 TABLET BY MOUTH EVERY DAY lamotrigine 150 mg tablet 150 mg PO DAILY Patient Comments: TAKE 1 TABLET BY MOUTH EVERY DAY norgestimate-ethinyl estradiol [Kaitlyn] 0.25-35 mg-mcg tablet 1 tab PO DAILY Patient Comments: TAKE 1 TABLET BY MOUTH ONCE DAILY. OKAY TO SKIP PLACEBO WEEK AND START ON NEXT PACKAGE olanzapine 20 mg tablet 20 mg PO QHS Patient Comments: TAKE 1 TABLET BY MOUTH EVERYDAY AT BEDTIME omeprazole 40 mg capsule,delayed release(DR/EC) 40 mg PO DAILY Patient Comments: TAKE 1 CAPSULE BY MOUTH ONCE DAILY Primary Care Provider: Fredrick Boland Referrals: Fredrick Boland DO [Primary Care Provider] - 1 Week if not improving Disposition Disposition: Home, Self Care
[2023-06-23] MEDS: guaiFENesin Dm 10 ML UDC PO (21:09)
== END 2023-06-23 21:11 | disposition home or self-care (01) ==
PROVIDERS: Emergency Provider Emergency Medicine; PCP Student in an Organized Health Care Education/Training Program; Visit Provider Emergency Medicine
DX: J11.1 Influenza due to unidentified influenza virus with other respiratory manifestations (principal); J20.9 Acute bronchitis, unspecified; F17.290 Nicotine dependence, other tobacco product, uncomplicated; E66.9 Obesity, unspecified
CPT/HCPCS: 71045; 94640; 94760; 99282

== ENCOUNTER 2024-07-30 14:52 | Emergency (ER) | payer MEDICAID, SELFPAY ==
[2024-07-30] VITALS (8 sets, daily range): BP systolic 91–129; BP diastolic 75–110; PULSE 67–124; RESP 11–24; TEMP 35.8–36.6; O2SAT 97–100; BMI 32.9
--- NOTE | 2024-07-30 15:35 | EKG12_ITS ---
Test Reason : Blood Pressure : */* mmHG Vent. Rate : 99 BPM Atrial Rate : 99 BPM P-R Int : 170 ms QRS Dur : 104 ms QT Int : 392 ms P-R-T Axes : 31 32 15 degrees QTcB Int : 503 ms Normal sinus rhythm Incomplete right bundle branch block Prolonged QT Abnormal ECG Confirmed by AZEEM VO, JOE ([id number]), editor continuity and script APPLE LANDRY ([id number]) on 07/31/2024 8:52:28 AM Referred By: TL/TB Confirmed By: JOE GANN MD
--- NOTE | 2024-07-30 15:51 | RAD_ITS ---
PROCEDURE: CHEST 1 VIEW (PORTABLE) REASON FOR EXAM: Stroke. TECHNIQUE: Frontal view of the chest. COMPARISON: None. FINDINGS: The cardiac and mediastinal contours are normal. The lungs are clear. RAD/Chest 1 View (Portable) IMPRESSION: No acute cardiopulmonary abnormalities. Reading Location: [id number]
--- NOTE | 2024-07-30 16:30 | EX.ED.DYSGE1 ---
HPI History of Present Illness Chief Complaint: Dizziness Informant: patient Narrative Narrative: Presents here with mother increased frequency of lightheaded symptoms over the last 2 months worse over the last week. Symptoms worse with standing. No syncopal episodes. No prodromal chest pain shortness of breath or palpitations. No recent vomiting diarrhea. States he is drinking fluids. No urinary symptoms. Currently on her menstrual period. She states heavy periods last 2 to 4 days. History of anemia currently not on any supplements. Denies black or bloody stools. History of depression on medications. Appointment with her PCP office in 8 days. [facility] Medical History Anxiety Borderline personality disorder Bipolar disorder Home Medications ?Medication ?Instructions ?Recorded ?Last Taken ?Type escitalopram oxalate 20 mg tablet 20 mg PO DAILY 04/27/22 06/19/23 History trazodone 150 mg tablet 150 mg PO QHS 04/27/22 06/19/23 History lamotrigine 150 mg tablet 150 mg PO DAILY 06/20/23 06/19/23 History norgestimate 0.25 mg-ethinyl 1 tab PO DAILY 06/20/23 06/19/23 History estradiol 35 mcg tablet (Kaitlyn) olanzapine 20 mg tablet 20 mg PO QHS 06/20/23 06/19/23 History omeprazole 40 mg capsule,delayed 40 mg PO DAILY 06/20/23 06/19/23 History release albuterol sulfate 90 mcg/actuation 1 - 2 puff inhalation Q4H PRN PRN 06/23/23 Unknown Rx aerosol inhaler (Ventolin HFA) Wheezing ##1 ferrous sulfate 325 mg (65 mg 325 mg PO DAILY #30 tabs 07/30/24 Unknown Rx iron) tablet potassium chloride 20 mEq 40 meq (2 x 20 mEq) PO DAILY #14 07/30/24 Unknown Rx tablet,extended release tabs Allergy/AdvReac Type Severity Reaction Status Date / Time No Known Allergies Allergy Verified 07/30/24 14:53 Surgical History Hx of cholecystectomy H/O section History of carpal tunnel surgery Social History Smoking Status: Current every day smoker tobacco type: cigarettes and e-cigarettes substance use type: does not use ROS ROS ED Constitutional Constitutional ED: Denies chills, fever(s) or sweats ENT ENT ED: Denies sore throat Cardiovascular Cardiovascular: Reports other Details: Lightheaded ; Denies chest pain, leg edema, palpitations or racing heartbeat Respiratory/Chest Respiratory/Chest: Denies cough, dyspnea or dyspnea on exertion Gastrointestinal Gastrointestinal: Denies abdominal pain, diarrhea, nausea or vomiting Genitourinary Genitourinary ED: Denies dysuria, hematuria or urinary frequency Musculoskeletal Musculoskeletal: Denies back pain, extremity pain or neck pain Integumentary Denies rash or wounds Neurologic Neurologic: Denies headache(s), paresthesias or weakness EXAM Physical Exam Const Vital Signs: 07/30/24 14:52 07/30/24 16:42 07/30/24 16:52 Temperature 96.5 F L Temperature Source Temporal Pulse Rate 124 H 93 Respiratory Rate 16 11 L Blood Pressure 91/75 120/84 H Blood Pressure Mean 80 96 Pulse Ox 98 100 Oxygen Delivery Method Room Air Room Air Room Air 07/30/24 17:00 07/30/24 17:15 07/30/24 17:30 Temperature Temperature Source Pulse Rate 93 96 Respiratory Rate 15 16 Blood Pressure 116/83 H 120/84 H 123/84 H Blood Pressure Mean 94 94 96 Pulse Ox 98 99 97 Oxygen Delivery Method 07/30/24 17:45 07/30/24 18:00 07/30/24 18:52 Temperature 98 F Temperature Source Pulse Rate 95 93 67 Respiratory Rate 24 H 22 H 16 Blood Pressure 127/86 H 129/96 H 120/110 H Blood Pressure Mean 99 106 113 Pulse Ox 98 99 Oxygen Delivery Method Room Air Positive well nourished and well developed General Appearance ED: well developed and NAD HEENT HEENT Narrative: Mild dry mucosal membranes normocephalic and atraumatic Eyes General Eye ED: Yes normal appearance of both eyes and other Other Details: Mild pallor of conjunctiva Neck full ROM Chest Wall Chest: Negative for tenderness Resp normal respiratory effort and normal air movement Effort and Inspection: symmetric chest movement; Negative for respiratory distress Cardio regular rate, regular rhythm and no murmurs Peripheral Pulses: pulses 2+ throughout GI normal to inspection, nondistended, normoactive bowel sounds and non-tender Palpation: Negative for guarding or rebound tenderness present Extremity normal to inspection General Extremety ED: Negative for edema or tenderness General Extremity: Negative for edema Neuro oriented x3, CN's II-XII intact bilaterally and no sensory deficits noted Sensorium / Orientation: awake and alert Skin Skin Narrative: Eczema excoriations bilateral arms and hands ulnar aspect. No drainage no streaking. MDM MDM MDM Narrative Medical decision making narrative: Interventions / MDM: Differential diagnosis: Near syncope, prolonged QT, anemia, electrolyte abnormalities Diagnosis considered but do not suspect: N/A My EKG interpretation: Sinus rate of 99, no ST or T wave changes, interventricular delay. QTc 503. Imaging independently reviewed and interpreted by myself: N/A External documents reviewed: N/A Test considered but not ordered:N/A ED course: EKG prolonged QT T. She had no syncopal episodes. No chest pains or palpitations. Labs were ordered fluids were given. 1800: Hemoglobin 8.3 in the system 2 years ago was 13. Patient had MyChart from labs 2 months ago which was 9.8. She denies rectal bleeding offered further exam with Hemoccult however she declined stating she has a doctor's appointment 8 days. I did send for iron studies. Her potassium 2.7 it was 3.22 months ago she has not had any diarrhea she is not on a diuretic. I start oral potassium replacement. Discussed with her we will continue potassium place for a week we will start her on iron daily for right now. Further evaluation by her PCP. She is referred to cardiology for prolonged QT. All questions were answered. Re-evaluation: stable Disposition discussed with patient/family/significant other: Patient and mother Case discussed with consulting clinician: N/A This note was generated with [employer] dictation software. It may contain incorrect words, spelling, and punctuation that were not noted in checking the note before signing. Lab Data Attestation: I reviewed the patient's lab results. Labs: Laboratory Results - last 24 hr 07/30/24 16:35 WBC 10.0 RBC 4.24 Hgb 8.3 L Hct 29.3 L MCV 69.1 L MCH 19.6 L MCHC 28.3 L RDW Std Deviation 45.1 H RDW Coeff of Chris 18.5 H Plt Count 466 H MPV 8.9 Immature Gran % (Auto) 0.400 Neut % (Auto) 79.3 H Lymph % (Auto) 11.0 L Piute % (Auto) 7.1 Eos % (Auto) 1.6 Baso % (Auto) 0.6 Absolute Neuts (auto) 8.0 H Absolute Lymphs (auto) 1.10 Nucleated RBC % 0 PT 14.0 INR 1.1 APTT 28.8 Sodium 138 Potassium 2.7 L* Chloride 104 Carbon Dioxide 25.0 Anion Gap 8 BUN 6 L Creatinine 1.22 H Estim Creat Clear Calc 75.11 Est GFR (MDRD) Af Amer 63 Est GFR (MDRD) Non-Af 52 L BUN/Creatinine Ratio 4.9 L Glucose 107 H Calcium 8.6 Iron 12 L TIBC 480 H Iron Saturation 2.5 L Ferritin 11 Serum , Qual NEGATIVE Radiography Diagnostic Testing: Clinical Impression(s) from Imaging Studies Chest X-Ray 07/30/24 15:51 IMPRESSION: No acute cardiopulmonary abnormalities. Reading Location: [id number] Discharge Plan Triage Chief Complaint: Dizziness ED Provider: Heraclio Paez Dx/Rx/DC Orders Clinical Impression: Near syncope, Prolonged Q-T interval on ECG, Hypokalemia, Anemia Instructions: Anemia, Hypokalemia Dc, ED Near-Fainting, Uncertain Cause Prescriptions: New ferrous sulfate 325 mg (65 mg iron) tablet 325 mg PO DAILY Qty: 30 0RF potassium chloride 20 mEq tablet extended release 40 meq PO DAILY Qty: 14 0RF No Action trazodone 150 mg tablet 150 mg PO QHS Patient Comments: TAKE 2 TABLETS BY MOUTH EVERY DAY AT BEDTIME escitalopram oxalate 20 mg tablet 20 mg PO DAILY Patient Comments: TAKE 1 TABLET BY MOUTH EVERY DAY albuterol sulfate [Ventolin HFA] 90 mcg/actuation HFA aerosol inhaler 1 - 2 puff inhalation Q4H PRN PRN (Reason: Wheezing) Qty: 1 0RF lamotrigine 150 mg tablet 150 mg PO DAILY Patient Comments: TAKE 1 TABLET BY MOUTH EVERY DAY norgestimate-ethinyl estradiol [Kaitlyn] 0.25-35 mg-mcg tablet 1 tab PO DAILY Patient Comments: TAKE 1 TABLET BY MOUTH ONCE DAILY. OKAY TO SKIP PLACEBO WEEK AND START ON NEXT PACKAGE olanzapine 20 mg tablet 20 mg PO QHS Patient Comments: TAKE 1 TABLET BY MOUTH EVERYDAY AT BEDTIME omeprazole 40 mg capsule,delayed release(DR/EC) 40 mg PO DAILY Patient Comments: TAKE 1 CAPSULE BY MOUTH ONCE DAILY Primary Care Provider: Fredrick Boland Referrals: Nacho Chavez MD [Med Staff - Active Staff] - 1-2 Weeks Fredrick Boland DO [Primary Care Provider] - Activity Restrictions/Additional Instructions: EKG with prolonged QT. Follow-up with cardiology. Hemoglobin 8.3. Iron level of 12. Ferritin 11. TIBC 480. He declined rectal exam. He would need checked by your doctor on your upcoming visit. Potassium 2.7. You are given oral potassium. Continue oral potassium replacement as written for you. Continue oral fluids for hydration. Print Language: Swedish Disposition Disposition: Home, Self Care Discharge Date/Time: 07/30/24 18:52
[2024-07-30] MEDS: 0.9% Normal Saline (1000mL) 1,000 ML 999 ML IV (16:38)
[2024-07-30 16:43] LABS: Basophil# 0.06 X10^3/uL; Basophil% 0.6 % (0-1); Eosinophil# 0.16 X10^3/uL; Eosinophils% 1.6 % (0-5); Hematocrit 29.3 % (37-47); Hemoglobin 8.3 g/dL (12.0-15.0); Mean Corp Hgb Conc 28.3 g/dL (32-36); Mean Corpuscular Hgb 19.6 pg (27.0-32.0); Mean Corpuscular Volume 69.1 fL (81-99); Mean Platelet Vol. 8.9 fl (6.2-12.0); Monocyte# 0.71 X10^3/uL; Monocyte% 7.1 % (0-10); NRBC Flagged by Analyzer 0 % (0-5); Neutrophil # 7.95 X10^3/uL (2.7-7.7); Neutrophil % 79.3 % (47-70); Platelet Count 466 K/mm3 (150-450); RBC Distribution Width CV 18.5 % (11.6-14.6); RBC Distribution Width SD 45.1 fl (35.1-43.9); Red Blood Count 4.24 M/mm3 (4.2-5.4)
[2024-07-30 16:56] LABS: Internal QC Validated? YES +Cl - CLEAR BKGD; Pregnancy, Serum, hCG Quali. NEGATIVE Negative
[2024-07-30 17:04] LABS: Anion Gap 8 (5-15); BUN 6 mg/dL (7-18); BUN/Creat Ratio 4.9 RATIO (10-20); Calcium,Total 8.6 mg/dL (8.5-10.1); Chloride 104 mmol/L (98-107); Creatinine, Serum 1.22 mg/dL (0.55-1.02); EST Glomerular Filtration Rate 52 mL/min (>60); Est Glom Filt Rate - Afr Amer 63 mL/min (>60); Estimated Creatinine Clearance 75.11 ml/min; Glucose 107 mg/dL (74-106); Sodium Level 138 mmol/L (136-145)
[2024-07-30 17:06] LABS: Potassium 2.7 mmol/L (3.5-5.1)
[2024-07-30 17:07] LABS: International Normalized Ratio 1.1; Partial Thromboplast Time 28.8 Seconds (24.1-36.2)
[2024-07-30] MEDS: Potassium Chloride Oral Tablet 20 MEQ 40 MEQ PO (17:59)
[2024-07-30 18:16] LABS: Ferritin 11 ng/mL (8-252); Iron 12 ug/dL (50-170); Iron Binding Capacity,Total 480 ug/dL (250-450); PERCENT IRON SATURATION 2.5 % (15.0-55.0)
== END 2024-07-30 18:52 | disposition home or self-care (01) ==
PROVIDERS: Emergency Provider Emergency Medicine; PCP Student in an Organized Health Care Education/Training Program; Visit Provider Emergency Medicine
DX: R55 Syncope and collapse (principal); E87.6 Hypokalemia; R94.31 Abnormal electrocardiogram [ECG] [EKG]; D64.9 Anemia, unspecified; F17.210 Nicotine dependence, cigarettes, uncomplicated; F17.290 Nicotine dependence, other tobacco product, uncomplicated
CPT/HCPCS: 71045; 80048; 82728; 83540; 83550; 84703; 85025; 85610; 85730; 93005; 96360; 99284; A4216

== ENCOUNTER 2024-08-16 17:41 | Emergency (ER) | payer MEDICAID, SELFPAY ==
[2024-08-16 17:42] VITALS: BP 129/88; PULSE 102; RESP 16; TEMP 36.3; O2SAT 100; BMI 32.6
--- NOTE | 2024-08-16 17:45 | RAD_ITS ---
PROCEDURE: FOOT MIN 3 VIEWS REASON FOR EXAM: Injury TECHNIQUE: 3 view(s) of each foot COMPARISON: None. FINDINGS: RIGHT FOOT: No visible fracture. No suspicious bone lesion. Normal alignment. Dorsal calcaneal spur. Soft tissues are unremarkable. RAD/Foot min 3 Views IMPRESSION: Mild degenerative changes with no acute osseous abnormality in right foot. Reading Location: [facility]
--- NOTE | 2024-08-16 20:11 | ED.VIS.LOWEX ---
HPI History of Present Illness Chief Complaint: Lower Extremity Injury Narrative Narrative: 38-year-old female past medical history of eczema presents with a few days of right foot pain. She states that started feeling dull and achy over the last few days. She denies any fevers or chills, no other symptoms, no recent trauma. However, of note, she was recently seen by her primary care provider and diagnosed with eczema on her right foot and lower extremity. She was placed on 10 days of steroids and a taper form. She states that whenever she tries to stand or walk on her right foot, she has pain that escalates. [facility] Medical History Anxiety Borderline personality disorder Bipolar disorder Home Medications ?Medication ?Instructions ?Recorded ?Last Taken ?Type escitalopram oxalate 20 mg tablet 20 mg PO DAILY 04/27/22 06/19/23 History trazodone 150 mg tablet 150 mg PO QHS 04/27/22 06/19/23 History lamotrigine 150 mg tablet 150 mg PO DAILY 06/20/23 06/19/23 History norgestimate 0.25 mg-ethinyl 1 tab PO DAILY 06/20/23 06/19/23 History estradiol 35 mcg tablet (Kaitlyn) olanzapine 20 mg tablet 20 mg PO QHS 06/20/23 06/19/23 History omeprazole 40 mg capsule,delayed 40 mg PO DAILY 06/20/23 06/19/23 History release albuterol sulfate 90 mcg/actuation 1 - 2 puff inhalation Q4H PRN PRN 06/23/23 Unknown Rx aerosol inhaler (Ventolin HFA) Wheezing ##1 ferrous sulfate 325 mg (65 mg 325 mg PO DAILY #30 tabs 07/30/24 Unknown Rx iron) tablet potassium chloride 20 mEq 40 meq (2 x 20 mEq) PO DAILY #14 07/30/24 Unknown Rx tablet,extended release tabs Allergy/AdvReac Type Severity Reaction Status Date / Time No Known Allergies Allergy Verified 08/16/24 17:43 Surgical History Hx of cholecystectomy H/O section History of carpal tunnel surgery Social History Smoking Status: Current every day smoker tobacco type: cigarettes and e-cigarettes substance use type: does not use ROS ROS ED ROS Narrative Review of systems positive for right foot pain. Worse with weightbearing and walking. Described as dull and achy. Also diagnosed with eczema on skin of right foot. EXAM Physical Exam Narrative Exam Narrative: Afebrile. Vital signs noted. Nontoxic-appearing. Focused examination of the right lower extremity/foot does reveal eczematous rash on the dorsum of the foot extending up on the anterior tibial surface. No fluctuance. No diffuse erythema. No crepitance. Palpable dorsalis pedis pulse. EHL intact. Const Vital Signs: 08/16/24 17:42 Temperature 97.4 F L Temperature Source Temporal Pulse Rate 102 H Respiratory Rate 16 Blood Pressure 129/88 H Blood Pressure Mean 101 Pulse Ox 100 Oxygen Delivery Method Room Air MDM MDM MDM Narrative Medical decision making narrative: Differential diagnosis includes but not limited to foot sprain versus inflammation from eczema. I have very low suspicion for cellulitis or necrotizing fasciitis. Patient is to start steroids for the next 10 days and was also given a cream. She will be placed in an Long wrap and her right foot elevated when possible. Per protocol, x-rays were obtained of the right foot. On my independent interpretation of her x-rays, there is no gas in the tissue there is no evidence of fracture. I reviewed the radiology report which confirms my independent interpretation. They also comment on mild degenerative changes. She may be having arthritic pain of her right foot as well. She will take the steroids and use the cream and continue Long wrapping her right lower extremity. She was given the number to the property administrator on-call, Dr. Griffith, for follow-up in 1 week if not improving. I feel she can be discharged to follow-up with podiatry and/or her primary care provider. Return instructions were reviewed. I do not feel narcotic pain medication is indicated. Disposition is discharged home in stable condition. History & Record Review Discussion w/independent historian: Patient Radiography X-Ray: Read by ED Physician, Read by Radiologist and No Fracture Diagnostic Testing: Clinical Impression(s) from Imaging Studies Foot X-Ray 08/16/24 17:45 IMPRESSION: Mild degenerative changes with no acute osseous abnormality in right foot. Reading Location: [facility] Discharge Plan Triage Chief Complaint: Lower Extremity Injury ED Provider: Jag Thomas Dx/Rx/DC Orders Clinical Impression: Foot pain, right, Eczema Instructions: ED Pain, Acute, Uncertain Cause Prescriptions: No Action trazodone 150 mg tablet 150 mg PO QHS Patient Comments: TAKE 2 TABLETS BY MOUTH EVERY DAY AT BEDTIME escitalopram oxalate 20 mg tablet 20 mg PO DAILY Patient Comments: TAKE 1 TABLET BY MOUTH EVERY DAY albuterol sulfate [Ventolin HFA] 90 mcg/actuation HFA aerosol inhaler 1 - 2 puff inhalation Q4H PRN PRN (Reason: Wheezing) Qty: 1 0RF lamotrigine 150 mg tablet 150 mg PO DAILY Patient Comments: TAKE 1 TABLET BY MOUTH EVERY DAY norgestimate-ethinyl estradiol [Kaitlyn] 0.25-35 mg-mcg tablet 1 tab PO DAILY Patient Comments: TAKE 1 TABLET BY MOUTH ONCE DAILY. OKAY TO SKIP PLACEBO WEEK AND START ON NEXT PACKAGE olanzapine 20 mg tablet 20 mg PO QHS Patient Comments: TAKE 1 TABLET BY MOUTH EVERYDAY AT BEDTIME omeprazole 40 mg capsule,delayed release(DR/EC) 40 mg PO DAILY Patient Comments: TAKE 1 CAPSULE BY MOUTH ONCE DAILY ferrous sulfate 325 mg (65 mg iron) tablet 325 mg PO DAILY Qty: 30 0RF potassium chloride 20 mEq tablet extended release 40 meq PO DAILY Qty: 14 0RF Primary Care Provider: Fredrick Boland Referrals: Fredrick Boland DO [Primary Care Provider] - Rufino Griffith DPM [Med Staff - Active Staff] - 1 Week if not improving Activity Restrictions/Additional Instructions: Take the steroid burst/taper that you are given over the next 10 days. Elevate your right foot when possible. Follow-up with podiatry in 1 week if not improving. Print Language: American Disposition Disposition: Home, Self Care
[2024-08-16 20:28] VITALS: BP 133/81; PULSE 83; RESP 16; TEMP 36.6; O2SAT 99
== END 2024-08-16 20:29 | disposition home or self-care (01) ==
PROVIDERS: Emergency Provider Emergency Medicine; PCP Student in an Organized Health Care Education/Training Program; Visit Provider Emergency Medicine
DX: M79.671 Pain in right foot (principal); F31.9 Bipolar disorder, unspecified; L30.9 Dermatitis, unspecified; F17.210 Nicotine dependence, cigarettes, uncomplicated; F17.290 Nicotine dependence, other tobacco product, uncomplicated
CPT/HCPCS: 73630; 99282

== ENCOUNTER 2024-08-20 01:07 | Emergency (ER) | payer MEDICAID, SELFPAY ==
[2024-08-20 01:10] VITALS: BP 159/96; PULSE 65; RESP 18; TEMP 36.4; O2SAT 98; BMI 32.9
--- NOTE | 2024-08-20 01:57 | EKG12_ITS ---
Test Reason : DYSRHYTHMIA Blood Pressure : */* mmHG Vent. Rate : 64 BPM Atrial Rate : * BPM P-R Int : * ms QRS Dur : 90 ms QT Int : 448 ms P-R-T Axes : * 13 22 degrees QTcB Int : 462 ms Normal sinus rhythm Normal ECG Confirmed by Yoseph Jarquin ([id number]), news editor APPLE LANDRY ([id number]) on 08/22/2024 7:57:04 AM Referred By: Confirmed By: Yoseph Jarquin
--- NOTE | 2024-08-20 01:58 | CT_ITS ---
PROCEDURE: ABDOMEN/PELVIS W IV CONT ONLY REASON FOR EXAM: 38-year-old female, abdominal pain and vomiting x3 hours. TECHNIQUE: Abdomen and pelvis CT with intravenous contrast. No oral contrast. IV CONTRAST: Isovue-300 COMPARISON: None. FINDINGS: Lung bases: Small hiatal hernia. Bibasilar atelectasis. The heart is normal in size. Liver: The liver is normal in size without focal hepatic mass. The major portal veins are patent. No biliary ductal dilation. Gallbladder: Prior cholecystectomy. Spleen: Unremarkable. Pancreas: Unremarkable. Adrenals: Unremarkable. Kidneys: No hydronephrosis or nephrolithiasis. Bladder: Moderately distended and unremarkable. Reproductive Organs: Unremarkable. Bowel: Diffuse distention of the small and large bowel loops. No ascites or pneumoperitoneum. Normal appendix. Lymph nodes: No suspicious lymph node enlargement. Vasculature: Filling defect within the descending thoracic aorta of the 4 o'clock position. Abrupt incomplete opacification of the proximal SMA, best visualized on sagittal image 91. Bones: Unremarkable. CT/Abdomen/Pelvis W IV Cont ONLY IMPRESSION: 1. Diffuse bowel distention, which can be seen with enteritis. No bowel dilati on or obstruction. No ascites or pneumoperitoneum. 2. Abrupt incomplete opacification of the proximal SMA, likely secondary to mix ing artifact of contrast. If patient has signs of acute mesenteric ischemia, CTA abdomen could be obtained for further evaluation . 3. Mural aortic thrombus within the descending thoracic aorta. Cardiology cons ultation recommended. One or more dose reduction techniques were used (e.g., Automated exposure contr ol, adjustment of the mA and/or kV according to patient size, use of iterative reconstruction technique). Reading Location: [id number]
[2024-08-20] MEDS: 0.9% Normal Saline (1000mL) 1,000 ML 1000 ML IV (02:05)
[2024-08-20] MEDS: Metoclopramide 10 MG/2 ML Vial 5 MG IV (02:06)
[2024-08-20] MEDS: Morphine 4 MG/ML Syringe IV ×4 (02:06→07:13)
[2024-08-20 02:07] LABS: Absolute Lymphocyte Count 1.56 X10^3/uL (0.83-4.51); Absolute Neutrophil Count 21.9 X10^3/uL (2.0-7.7); Basophil# 0.09 X10^3/uL; Basophil% 0.4 % (0-1); Eosinophil# 0.03 X10^3/uL; Eosinophils% 0.1 % (0-5); Hematocrit 33.5 % (37-47); Hemoglobin 9.4 g/dL (12.0-15.0); Lymphocyte # 1.56 X10^3/ul (0.83-4.51); Lymphocyte % 6.2 % (19-41); Mean Corp Hgb Conc 28.1 g/dL (32-36); Mean Corpuscular Hgb 21.2 pg (27.0-32.0); Mean Corpuscular Volume 75.6 fL (81-99); Monocyte% 5.6 % (0-10); NRBC Flagged by Analyzer 0.1 % (0-5); Neutrophil # 21.87 X10^3/uL (2.7-7.7); Neutrophil % 86.7 % (47-70); POSITIVE DIFFERENTIAL YES; POSITIVE MORPHOLOGY YES; Platelet Count 381 K/mm3 (150-450); RBC Distribution Width CV 25.3 % (11.6-14.6); RBC Distribution Width SD 66.1 fl (35.1-43.9); Red Blood Count 4.43 M/mm3 (4.2-5.4); White Blood Count 25.2 K/mm3 (4.4-11.0)
[2024-08-20 02:14] LABS: Differential Indicated SCAN CRITERIA MET
[2024-08-20 02:25] LABS: Internal QC Validated? YES +Cl - CLEAR BKGD; Pregnancy, Serum, hCG Quali. NEGATIVE Negative
[2024-08-20 02:29] LABS: ALB/GLOB Ratio 0.5 RATIO (0.9-2.4); AST(SGOT) 20 U/L (15-37); Alanine Aminotransfer ALT/SGPT 15 U/L (13-56); Alkaline Phosphatase 98 U/L (45-117); Anion Gap 11 (5-15); BUN 14 mg/dL (7-18); BUN/Creat Ratio 10.9 RATIO (10-20); Calcium,Total 8.8 mg/dL (8.5-10.1); Chloride 106 mmol/L (98-107); Creatinine, Serum 1.29 mg/dL (0.55-1.02); EST Glomerular Filtration Rate 48 mL/min (>60); Est Glom Filt Rate - Afr Amer 59 mL/min (>60); Estimated Creatinine Clearance 71.07 ml/min; Globulin 5.6 g/dL (2.2-4.2); Glucose 187 mg/dL (74-106); Lipase 26 U/L (73-393); Potassium 3.6 mmol/L (3.5-5.1); Protein, Total 8.6 g/dL (6.4-8.2); Sodium Level 139 mmol/L (136-145)
[2024-08-20 02:51] LABS: Anisocytosis 2+; Microcytosis 1+; Ovalocyte RARE; Polychromasia 2+
[2024-08-20 02:52] LABS: Stomatocyte RARE
[2024-08-20 03:00] VITALS: BP 150/100; PULSE 61; RESP 18; O2SAT 97
--- NOTE | 2024-08-20 03:50 | ED.VIS.GI ---
HPI HPI - GI History of Present Illness Chief Complaint: Abd Pain Informant: patient Abdominal Pain/Flank Pain Onset: Today Narrative Narrative: Mid abdominal pain few hours ago with vomiting multiple times. States small amount of blood. Normal bowel movement 2 hours ago nonbloody. Denies any abdominal surgeries. No history of similar. Denies alcohol use. Denies recreational drug use including marijuana. No fever or chills. No urinary symptoms. Last menstrual period 2 weeks ago. Prior similar symptoms: No PFSH PFSH Medical History Anxiety Borderline personality disorder Bipolar disorder Home Medications ?Medication ?Instructions ?Recorded ?Last Taken ?Type escitalopram oxalate 20 mg tablet 20 mg PO DAILY 04/27/22 06/19/23 History trazodone 150 mg tablet 150 mg PO QHS 04/27/22 06/19/23 History norgestimate 0.25 mg-ethinyl 1 tab PO DAILY 06/20/23 06/19/23 History estradiol 35 mcg tablet (Kaitlyn) olanzapine 20 mg tablet 20 mg PO QHS 06/20/23 06/19/23 History omeprazole 40 mg capsule,delayed 40 mg PO DAILY 06/20/23 06/19/23 History release ferrous sulfate 325 mg (65 mg 325 mg PO DAILY #30 tabs 07/30/24 Unknown Rx iron) tablet potassium chloride 20 mEq 40 meq (2 x 20 mEq) PO DAILY #14 07/30/24 Unknown Rx tablet,extended release tabs Allergy/AdvReac Type Severity Reaction Status Date / Time No Known Allergies Allergy Verified 08/20/24 01:08 Surgical History Hx of cholecystectomy H/O section History of carpal tunnel surgery Social History Smoking Status: Current every day smoker tobacco type: cigarettes and e-cigarettes substance use type: does not use ROS ROS ED Constitutional Constitutional ED: Denies chills, fever(s) or sweats ENT ENT ED: Denies sore throat Cardiovascular Cardiovascular: Denies chest pain, leg edema, palpitations or racing heartbeat Respiratory/Chest Respiratory/Chest: Denies cough, dyspnea or dyspnea on exertion Gastrointestinal Gastrointestinal: Reports abdominal pain, nausea and vomiting; Denies diarrhea Genitourinary Genitourinary ED: Denies dysuria, hematuria or urinary frequency Musculoskeletal Musculoskeletal: Denies back pain, extremity pain or neck pain Integumentary Denies rash or wounds Neurologic Neurologic: Denies headache(s), paresthesias or weakness EXAM Physical Exam Const Vital Signs: 08/20/24 01:10 08/20/24 03:00 08/20/24 05:00 Temperature 97.6 F L Temperature Source Oral Pulse Rate 65 61 69 Respiratory Rate 18 18 18 Blood Pressure 159/96 H 150/100 H 171/107 H Blood Pressure Mean 117 116 128 Pulse Ox 98 97 97 Oxygen Delivery Method Room Air Room Air Room Air 08/20/24 07:00 08/20/24 08:11 Temperature 98.1 F Temperature Source Pulse Rate 76 78 Respiratory Rate 18 Blood Pressure 174/110 H 174/110 H Blood Pressure Mean 131 131 Pulse Ox 97 98 Oxygen Delivery Method Room Air Positive well nourished and well developed General Appearance ED: well developed and NAD HEENT Reports dry mucous membranes normocephalic and atraumatic Mouth ED: Yes dry mucous membranes Mouth: dry mucous membranes Eyes General Eye ED: Yes normal appearance of both eyes Neck full ROM Chest Wall Chest: Negative for tenderness Resp normal respiratory effort and normal air movement Effort and Inspection: symmetric chest movement; Negative for respiratory distress Cardio regular rate, regular rhythm and no murmurs Peripheral Pulses: pulses 2+ throughout GI normal to inspection, nondistended, normoactive bowel sounds GI Narrative: Tender mid abdomen. Negative Hinds's or McBurney's tenderness. Palpation: Negative for guarding or rebound tenderness present Extremity normal to inspection General Extremety ED: Negative for edema or tenderness General Extremity: Negative for edema Neuro oriented x3 and no sensory deficits noted Sensorium / Orientation: awake and alert Skin no rashes or lesions noted and no wounds MDM MDM MDM Narrative Medical decision making narrative: Interventions / MDM: Differential diagnosis: Gastritis. Aortic thrombus. SMA occlusion, Iliac thrombus Diagnosis considered but do not suspect: Pancreatitis however x-ray and labs negative. My EKG interpretation: Sinus rate of 64, no ST changes, QTc 462. Imaging independently reviewed and interpreted by myself: CT abdomen pelvis IV contrast: Per radiology incomplete mural thrombus descending thoracic aorta. Complete opacification of the proximal SMA. External documents reviewed: N/A Test considered but not ordered:N/A ED course: Patient had mid abdominal tenderness negative Hinds's or McBurney's tenderness. Dry mucosal membranes. IV established abdominal labs ordered, IV fluids. Of note seen by myself a few weeks ago had a prolonged QT therefore was given Reglan and morphine. EKG ordered. EKG with normal QTc. Electronically was reading junctional however noted P waves with sinus rhythm. 1530: Labs white count 25 normal lipase. Creatinine 1.29. Liver enzymes normal. hCG negative. Urine positive for opiates however she was given morphine. 0530: Patient require additional morphine in the interim. CT scan per radiology concerns for narrow aortic thrombus within the descending colon. Also possible incomplete opacification SMA artifact versus possible occlusion. Reevaluation patient clinically appears better after still reports pain. I added a lactic acid. Will obtain CT angiogram chest abdomen pelvis with report of initial CT for further evaluation. 0640: Received call from radiologist discussion for CT angiogram. Reports couple mural thrombus thoracic descending aorta, reports SMA thrombus 5 cm distal to the origin. Per radiology there is no bowel wall changes at this time. Reports of thrombus concerns left internal iliac. Ordered for heparin drip. Patient left lower extremity with the pulse is not cold. I will reach out to vascular surgery for discussion disposition plans. Her lactic acid returned at 2.2. Hemoglobin 9.4 last hemoglobin 8.33 weeks ago patient currently on iron supplements. With leukocytosis I did send for blood cultures. 0657: I spoke with my vascular surgeon Dr. Nazario, agrees with heparin drip. He feels she does need tertiary risk coronary center for more emergent evaluation. Recommends up in [place]. Will work on transfer. 0720: I spoke with J team with practitioner Jack. discussed the findings and concerns of patient on heparin drip. Agrees with plan at this time. Patient accepted to their team under Dr. Hernandez. They reviewed the imagings that were pushed up there. They will send their critical care team for transfer. Patient updated. Re-evaluation: stable Disposition discussed with patient/family/significant other: Patient Case discussed with consulting clinician: N/A This note was generated with [employer] dictation software. It may contain incorrect words, spelling, and punctuation that were not noted in checking the note before signing. Lab Data Attestation: I reviewed the patient's lab results. Labs: Laboratory Results - last 24 hr 08/20/24 08/20/24 08/20/24 01:15 04:20 05:34 WBC 25.2 H RBC 4.43 Hgb 9.4 L Hct 33.5 L MCV 75.6 L MCH 21.2 L MCHC 28.1 L RDW Std Deviation 66.1 H RDW Coeff of Chris 25.3 H Plt Count 381 MPV 9.0 Immature Gran % (Auto) 1.000 H Neut % (Auto) 86.7 H Lymph % (Auto) 6.2 L [place] % (Auto) 5.6 Eos % (Auto) 0.1 Baso % (Auto) 0.4 Absolute Neuts (auto) 21.9 H Absolute Lymphs (auto) 1.56 Nucleated RBC % 0.1 Polychromasia 2+ Anisocytosis 2+ Microcytosis 1+ Ovalocytes RARE Stomatocytes RARE PT INR APTT Sodium 139 Potassium 3.6 Chloride 106 Carbon Dioxide 22.0 Anion Gap 11 BUN 14 Creatinine 1.29 H Estim Creat Clear Calc 71.07 Est GFR (MDRD) Af Amer 59 L Est GFR (MDRD) Non-Af 48 L BUN/Creatinine Ratio 10.9 Glucose 187 H Lactic Acid 2.2 H* Calcium 8.8 Total Bilirubin 0.30 AST 20 ALT 15 Alkaline Phosphatase 98 Total Protein 8.6 H Albumin 3.0 L Globulin 5.6 H Albumin/Globulin Ratio 0.5 L Lipase 26 L Serum , Qual NEGATIVE Urine Color Yellow Urine Clarity Sl. Cloudy Urine pH 8.0 Ur Specific [place] 1.010 Urine Protein 30 H Urine Glucose (UA) Normal Urine Ketones Negative Urine Occult Blood 10 H Urine Nitrite Negative Urine Bilirubin Negative Urine Urobilinogen Normal Ur Leukocyte Esterase Negative Urine RBC 0-5 SEEN Urine WBC 0 SEEN Ur Squamous Epith Cells 0-5 SEEN Urine Bacteria 3+ Urine Mucus 0 SEEN Urine Opiates Screen POSITIVE H Urine Methadone Screen NEGATIVE Ur Barbiturates Screen NEGATIVE Ur Phencyclidine Scrn NEGATIVE Ur Amphetamines Screen NEGATIVE MDMA (Ecstasy) Screen NEGATIVE U Benzodiazepines Scrn NEGATIVE Urine Cocaine Screen NEGATIVE U Cannabinoids Screen NEGATIVE Ur Drug Screen Comment 08/20/24 06:46 WBC RBC Hgb Hct MCV MCH MCHC RDW Std Deviation RDW Coeff of Chris Plt Count MPV Immature Gran % (Auto) Neut % (Auto) Lymph % (Auto) [place] % (Auto) Eos % (Auto) Baso % (Auto) Absolute Neuts (auto) Absolute Lymphs (auto) Nucleated RBC % Polychromasia Anisocytosis Microcytosis Ovalocytes Stomatocytes PT 14.9 INR 1.2 APTT 20.9 L Sodium Potassium Chloride Carbon Dioxide Anion Gap BUN Creatinine Estim Creat Clear Calc Est GFR (MDRD) Af Amer Est GFR (MDRD) Non-Af BUN/Creatinine Ratio Glucose Lactic Acid Calcium Total Bilirubin AST ALT Alkaline Phosphatase Total Protein Albumin Globulin Albumin/Globulin Ratio Lipase Serum , Qual Urine Color Urine Clarity Urine pH Ur Specific [place] Urine Protein Urine Glucose (UA) Urine Ketones Urine Occult Blood Urine Nitrite Urine Bilirubin Urine Urobilinogen Ur Leukocyte Esterase Urine RBC Urine WBC Ur Squamous Epith Cells Urine Bacteria Urine Mucus Urine Opiates Screen Urine Methadone Screen Ur Barbiturates Screen Ur Phencyclidine Scrn Ur Amphetamines Screen MDMA (Ecstasy) Screen U Benzodiazepines Scrn Urine Cocaine Screen U Cannabinoids Screen Ur Drug Screen Comment Radiography Diagnostic Testing: Clinical Impression(s) from Imaging Studies Abdomen/Pelvis CT 08/20/24 01:58 IMPRESSION: 1. Diffuse bowel distention, which can be seen with enteritis. No bowel dilation or obstruction. No ascites or pneumoperitoneum. 2. Abrupt incomplete opacification of the proximal SMA, likely secondary to mixing artifact of contrast. If patient has signs of acute mesenteric ischemia, CTA abdomen could be obtained for further evaluation. 3. Mural aortic thrombus within the descending thoracic aorta. Cardiology consultation recommended. One or more dose reduction techniques were used (e.g., Automated exposure control, adjustment of the mA and/or kV according to patient size, use of iterative reconstruction technique). Reading Location: [facility] Chest/Abdomen/Pelvis CTA 08/20/24 05:26 IMPRESSION: Soft appearing mural thrombus is noted within the descending thoracic aorta as above. There is again persistent abrupt cut off of the SMA proximally 5 cm from its origin consistent with thrombus as above. Mildly prominent small bowel loops with scattered air-fluid levels suggesting ileus. Findings concerning for possible thrombus at the origin of the left internal iliac artery as above. Results of the study communicated with Dr. Paez at 3:35 a.m. 08/20/2024 One or more dose reduction techniques were used (e.g., Automated exposure control, adjustment of the mA and/or kV according to patient size, use of iterative reconstruction technique). Reading Location: [facility] Critical Care Time Critical Care Time: Yes Critical care time (excluding procedures): 30-74 minutes, Discussing w/Patient &/or Family/Healthcare Technician, Discussing w/Consultants, Arranging Admission or Transfer, Performing Direct Patient Care at Bedside and - (45 minutes) Discharge Plan Triage Chief Complaint: Abd Pain ED Provider: Heraclio Paez Dx/Rx/DC Orders Clinical Impression: Aortic mural thrombus, Occlusion of superior mesenteric artery, Iliac artery thrombosis, left, Abdominal pain, Vomiting, Anemia, Leukocytosis Prescriptions: No Action trazodone 150 mg tablet 150 mg PO QHS Patient Comments: TAKE 2 TABLETS BY MOUTH EVERY DAY AT BEDTIME escitalopram oxalate 20 mg tablet 20 mg PO DAILY Patient Comments: TAKE 1 TABLET BY MOUTH EVERY DAY norgestimate-ethinyl estradiol [Kaitlyn] 0.25-35 mg-mcg tablet 1 tab PO DAILY Patient Comments: TAKE 1 TABLET BY MOUTH ONCE DAILY. OKAY TO SKIP PLACEBO WEEK AND START ON NEXT PACKAGE olanzapine 20 mg tablet 20 mg PO QHS Patient Comments: TAKE 1 TABLET BY MOUTH EVERYDAY AT BEDTIME omeprazole 40 mg capsule,delayed release(DR/EC) 40 mg PO DAILY Patient Comments: TAKE 1 CAPSULE BY MOUTH ONCE DAILY ferrous sulfate 325 mg (65 mg iron) tablet 325 mg PO DAILY Qty: 30 0RF potassium chloride 20 mEq tablet extended release 40 meq PO DAILY Qty: 14 0RF Primary Care Provider: Fredrick Boland Referrals: Fredrick Boland DO [Primary Care Provider] - Print Language: German Disposition Disposition: DC/Tx to Another Type of HCF Discharge Date/Time: 08/20/24 08:24
[2024-08-20] MEDS: Famotidine 200 MG/20 ML MDV 20 MG in 0.9% Normal Saline (Pres. free 8 ML 300 MG IV (04:21)
[2024-08-20 04:45] LABS: Amphetamine Urine NEGATIVE (<1000 ng/mL); Barbiturate Urine VISTA NEGATIVE (< 200 ng/mL); Benzodiazepine Urine VISTA NEGATIVE (< 200 ng/mL); Cocaine Urine NEGATIVE (< 300 ng/mL); Ecstacy Urine VISTA NEGATIVE (< 500 ng/mL); Methadone Urine VISTA NEGATIVE (< 300 ng/mL); Opiates Urine POSITIVE (< 300 ng/mL); PCP Urine NEGATIVE (< 25 ng/mL); THC Urine VISTA NEGATIVE (< 50 ng/mL); Vista UDS pH Range 7
[2024-08-20 05:00] VITALS: BP 171/107; PULSE 69; RESP 18; O2SAT 97
--- NOTE | 2024-08-20 05:26 | CT_ITS ---
PROCEDURE: CTA CHST, ABD, PEL W AND/OR WO REASON FOR EXAM: Thoracic aortic thrombus, mural thrombus, question artery occlusion TECHNIQUE: CTA of the chest abdomen and pelvis with contrast with coronal and sagittal reformatted images 3D reconstructions. IV CONTRAST: COMPARISON: 08/20/2024 CT abdomen and pelvis FINDINGS: The central airways are patent. Minimal dependent basilar atelectasis. No focal consolidation. No pleural effusion. Standard three-vessel aortic arch which visualized great vessels appear within limits. Ascending thoracic aorta 3.5 cm. Descending thoracic aorta 2.5 cm. No dissection flap identified. Area of soft mural thrombus along the descending thoracic aorta for example axial 45 through 63 and sagittal 14. No pericardial or pleural effusion. No large central or hilar pulmonary embolism. Suggestion of possible small hiatal hernia. No abdominal aortic aneurysm or dissection. Contrast fills the celiac trunk and branches as expected. The DSETINY and renal arteries fill with contrast as expected. SMA origin and proximal artery fills with contrast as expected with abrupt caught off of the artery again noted consistent with thrombus and occlusion approximately 5 cm from its origin for example sagittal 15. Contrast is seen within the right internal iliac artery with the left internal iliac artery not containing contrast from its origin concerning for thrombus. There is again note of mildly prominent small bowel loops in the central abdomen with scattered fluid levels which may represent ileus. Definite appearance of small-bowel wall thickening is not identified at this time. No free air or free fluid. Hepatic steatosis. The kidneys, adrenal glands, pancreas and spleen appear within limits. Normal caliber appendix without secondary signs. CT/CTA Chst, Abd, Pel W and/or WO IMPRESSION: Soft appearing mural thrombus is noted within the descending thoracic aorta as above. There is again persistent abrupt cut off of the SMA proximally 5 cm from its or igin consistent with thrombus as above. Mildly prominent small bowel loops with scattered air-fluid levels suggesting i leus. Findings concerning for possible thrombus at the origin of the left internal il iac artery as above. Results of the study communicated with Dr. Paez at 3:35 a.m. 08/20/2024 One or more dose reduction techniques were used (e.g., Automated exposure contr ol, adjustment of the mA and/or kV according to patient size, use of iterative reconstruction technique). Reading Location: [facility]
[2024-08-20 05:44] LABS: Color, Urine Yellow (Yellow); Glucose, Dipstick Normal (Normal); Ketone-Dipstick Negative (Negative); Leukocyte Esterase-Dipstick Negative /ul (Negative); Mucous, Urine 0 SEEN /hpf (<or=2+); Nitrite-Dipstick Negative (Negative); Occult Blood-Urine 10 /ul (Negative); Protein-Dipstick 30 mg/dl (Negative); Urine Bilirubin Dipstick Negative (Negative); Urine Clarity Sl. Cloudy (Clear); Urine Urobilinogen Normal (Normal); White Blood Cells 0 SEEN /hpf (0-5)
[2024-08-20 05:51] LABS: Bacteria 3+ /hpf (None Seen); Red Blood Cells-Urine 0-5 SEEN /hpf (0-5); Squamous Epithelial Cells - UA 0-5 SEEN /hpf (5-10)
[2024-08-20 06:13] LABS: Lactic Acid 2.2 mmol/L (0.4-1.9)
[2024-08-20 07:00] VITALS: BP 174/110; PULSE 76; O2SAT 97
[2024-08-20 07:04] LABS: International Normalized Ratio 1.2; Prothrombin Time (Protime)PT. 14.9 SECONDS (11.7-14.9)
[2024-08-20] MEDS: Heparin Injection (Vial) 5,000 UNIT/ML VIAL 4000 UNIT IV (07:04)
[2024-08-20] MEDS: HEPARIN/D5w 25,000 UNITS 25,000 UNITS/250 ML IV.SOLN. 10 UNITS CONT INF (07:04)
[2024-08-20 08:11] VITALS: BP 174/110; PULSE 78; RESP 18; TEMP 36.7; O2SAT 98
[2024-08-20 08:17] LABS: Partial Thromboplast Time 20.9 Seconds (24.1-36.2)
[2024-08-20 09:42] LABS: Reflex Lactate? Y
== END 2024-08-20 08:24 | disposition other institution (70) ==
PROVIDERS: Emergency Provider Emergency Medicine; PCP Student in an Organized Health Care Education/Training Program; Visit Provider Emergency Medicine
DX: I74.11 Embolism and thrombosis of thoracic aorta (principal); F31.9 Bipolar disorder, unspecified; I82.422 Acute embolism and thrombosis of left iliac vein; D64.9 Anemia, unspecified; F17.210 Nicotine dependence, cigarettes, uncomplicated; F17.290 Nicotine dependence, other tobacco product, uncomplicated; F41.9 Anxiety disorder, unspecified; Z79.899 Other long term (current) drug therapy
CPT/HCPCS: 71275; 74174; 74177; 80053; 80307; 81001; 83605; 83690; 84703; 85025; 85610; 85730; 87040; 93005; 96361; 96365; 96375; 96376; 99284; Q9967; A4216

== ENCOUNTER 2024-10-28 16:06 | Inpatient (IN) | payer MEDICAID, SELFPAY ==
[2024-10-28 16:09] VITALS: PULSE 96; RESP 16; TEMP 36.6; O2SAT 99; BMI 29.2
[2024-10-28 16:29] VITALS: BP 104/93
--- NOTE | 2024-10-28 17:21 | EX.ED.DYSGE1 ---
HPI History of Present Illness Chief Complaint: Dizziness Informant: patient Onset/Context/Timing Onset: Weeks Timing: Intermittent Current Severity: Mild Maximum Severity: Mild Narrative Narrative: 39-year-old female history of bipolar, anxiety, prior leg DVTs where she had clot removal from her legs. In July had a bowel obstruction needed some partial bowel resection and an ostomy. Since that time she has had episodes of high output where she has developed dehydration and electrolyte abnormalities. She complained of the same. Complains some dizziness with standing. And cramps in her lower extremities. Recently she has been in a rehab facility. And states she was on TPN. She denies any fever. No dysuria. No fall or trauma. Prior similar symptoms: Yes Recent Illness/Hospitalization: Yes PFSH [facility] Medical History Anxiety Borderline personality disorder Bipolar disorder Home Medications ?Medication ?Instructions ?Recorded ?Last Taken ?Type escitalopram oxalate 20 mg tablet 20 mg PO DAILY 04/27/22 06/19/23 History trazodone 150 mg tablet 150 mg PO QHS 04/27/22 06/19/23 History norgestimate 0.25 mg-ethinyl 1 tab PO DAILY 06/20/23 06/19/23 History estradiol 35 mcg tablet (Kaitlyn) olanzapine 20 mg tablet 20 mg PO QHS 06/20/23 06/19/23 History omeprazole 40 mg capsule,delayed 40 mg PO DAILY 06/20/23 06/19/23 History release ferrous sulfate 325 mg (65 mg 325 mg PO DAILY #30 tabs 07/30/24 Unknown Rx iron) tablet potassium chloride 20 mEq 40 meq (2 x 20 mEq) PO DAILY #14 07/30/24 Unknown Rx tablet,extended release tabs Allergy/AdvReac Type Severity Reaction Status Date / Time No Known Allergies Allergy Verified 10/28/24 16:09 Surgical History Hx of cholecystectomy H/O section History of carpal tunnel surgery Social History Smoking Status: Former smoker substance use type: does not use ROS ROS ED ROS Narrative High output. Cramping. Lightheaded with standing. Constitutional Constitutional ED: Denies chills or fever(s) Eyes Eyes: Denies blurry vision ENT ENT ED: Denies ear pain Cardiovascular Cardiovascular: Denies chest pain or palpitations Respiratory/Chest Respiratory/Chest: Denies cough or dyspnea Gastrointestinal Gastrointestinal: Denies abdominal pain, constipation, nausea or vomiting Genitourinary Genitourinary ED: Denies dysuria or hematuria Musculoskeletal Musculoskeletal: Denies arthralgias Integumentary Denies abscess Neurologic Neurologic: Denies headache(s) Psychiatric Psychiatric: Denies anxiety Endocrine Endocrinology: Denies cold intolerance Hematologic/Lymphatic Hematologic/Lymphatic: Reports none Allergic/Immunologic Allergic/Immunologic ED: Denies mouth swelling, tongue swelling or urticaria EXAM Physical Exam Narrative Exam Narrative: 39-year-old female sitting upright in bed. Vital signs are stable she is tachycardic on monitor heart rate 110. She does not look septic toxic she is no distress. H EENT exam pupils round reactive light. Dry mucous membranes. Neck nontender no JVD. No lymphadenopathy. Lungs clear to auscultation. Heart rate 110 no murmur. Chest wall and ribs nontender. Abdomen soft nontender. She has a left lower quadrant ostomy bag with liquid stool no melena. Neurologically she is awake and alert. Moving all 4 extremities. Normal strength and sensation. Answering questions following commands. Calves are nontender without edema. Const Vital Signs: 10/28/24 16:09 10/28/24 16:29 10/28/24 18:11 Temperature 97.8 F Temperature Source Oral Pulse Rate 96 87 Respiratory Rate 16 15 Blood Pressure 104/93 H 115/85 H Blood Pressure Mean 96 95 Pulse Ox 99 100 Oxygen Delivery Method Room Air Room Air Positive well nourished and well developed; Negative for cachectic, contractures or unkempt General Appearance ED: well developed and NAD; Negative for unkempt, cachectic, contractures, cyanotic, diaphoretic or pallor Nutritional Appearance: Negative for cachectic HEENT Reports dry mucous membranes; Denies moist mucous membranes Mouth ED: Yes dry mucous membranes Mouth: dry mucous membranes Eyes PERRL and EOMs intact bilaterally Neck no lymphadenopathy, supple and no JVD Chest Wall inspection of chest normal and palpation of chest normal Resp normal respiratory effort and clear to auscultation bilaterally Effort and Inspection: Negative for retractions Auscultation: Negative for rales, rhonchi, wheezes or diminished lung sounds Cardio regular rhythm, S1 normal heart sound, S2 normal heart sound and no murmurs; Negative for regular rate Rate: tachycardic GI normal to inspection, nondistended, normoactive bowel sounds, non-tender, non-distended and no masses GI Narrative: Left-sided ostomy with liquid brown stool no blood. Auscultation: normoactive bowel sounds Palpation: soft; Negative for tender, guarding or rebound tenderness present Back/Spine no CVA tenderness General Back: Negative for CVA tenderness Extremity normal to inspection General Extremety ED: Negative for edema or tenderness General Extremity: Negative for edema Neuro oriented x3 and CN's II-XII intact bilaterally Sensorium / Orientation: alert; Negative for orientation impaired, lethargic or stuporous Motor Exam: strength 5/5 throughout; Negative for general weakness Psych mental status grossly normal Appearance: Negative for unkempt Attitude: No agitated Mood & Affect: Negative for depressed, anxious or tearful Skin no rashes or lesions noted and no wounds General Skin Exam: Negative for jaundice or pallor Lesions: No lesion noted Rashes: No rashes noted Trauma: Negative for abrasion Wounds: Negative for wounds noted MDM MDM MDM Narrative Medical decision making narrative: 39-year-old female had a bowel obstruction earlier this year as an ostomy with high output. Complaining of leg cramping and lightheadedness with standing. Suspect secondary dehydration possible electrolyte abnormalities. Screening labs will be obtained. She will be treated with 2 L normal saline. Repeat exam patient is doing well at 7 PM. Paged out to the hospitalist for admission for acute kidney injury and dehydration.Patient was treated with a second liter normal saline. History & Record Review Discussion w/independent historian: Patient Additional record(s) reviewed:: Prior inpatient record, Prior outpatient record, Prior ED visit and Prior labs Lab Data Attestation: I reviewed the patient's lab results. Lab results narrative: CBC shows white count 12.4. H&H 12 and 38. Platelets 675. Electrolytes show sodium 127. Gap of 26. BUN and creatinine of 35 and 3.36 previously her creatinines were around 1. Leukos 165. Magnesium was normal at 1.7. Potassium is normal at 4.5. Labs: Laboratory Results - last 24 hr 10/28/24 16:19 WBC 12.4 H RBC 5.01 Hgb 12.2 Hct 38.3 MCV 76.4 L MCH 24.4 L MCHC 31.9 L RDW Std Deviation 41.5 RDW Coeff of Chris 15.5 H Plt Count 675 H MPV 10.1 Immature Gran % (Auto) 0.500 Neut % (Auto) 74.2 H Lymph % (Auto) 17.1 L [place] % (Auto) 7.7 Eos % (Auto) 0.1 Baso % (Auto) 0.4 Absolute Neuts (auto) 9.2 H Absolute Lymphs (auto) 2.13 Nucleated RBC % 0 Sodium 127 L Potassium 4.5 Chloride 81 L Carbon Dioxide 20.9 L Anion Gap 26 H BUN 35 H Creatinine 3.36 H Estim Creat Clear Calc 24.64 L Est GFR (MDRD) Non-Af 17 L BUN/Creatinine Ratio 10.4 Glucose 165 H Calcium 10.5 Magnesium 1.7 Discharge Plan Dx/Rx/DC Orders Clinical Impression: Acute dehydration, Acute kidney injury, History of creation of ostomy, Diarrhea, Hx of blood clots Disposition Disposition: Acute Care [facility]
[2024-10-28] MEDS: 0.9% Normal Saline (1000mL) 1,000 ML 1000 ML IV ×2 (17:32→18:08)
[2024-10-28 17:35] LABS: Absolute Lymphocyte Count 2.13 X10^3/uL (0.83-4.51); Absolute Neutrophil Count 9.2 X10^3/uL (2.0-7.7); Basophil# 0.05 X10^3/uL; Basophil% 0.4 % (0-1); Eosinophil# 0.01 X10^3/uL; Eosinophils% 0.1 % (0-5); Hematocrit 38.3 % (37-47); Hemoglobin 12.2 g/dL (12.0-15.0); Lymphocyte # 2.13 X10^3/ul (0.83-4.51); Lymphocyte % 17.1 % (19-41); Mean Corp Hgb Conc 31.9 g/dL (32-36); Mean Corpuscular Hgb 24.4 pg (27.0-32.0); Mean Corpuscular Volume 76.4 fL (81-99); Mean Platelet Vol. 10.1 fl (6.2-12.0); Monocyte# 0.96 X10^3/uL; Monocyte% 7.7 % (0-10); NRBC Flagged by Analyzer 0 % (0-5); Neutrophil # 9.21 X10^3/uL (2.7-7.7); Neutrophil % 74.2 % (47-70); Platelet Count 675 K/mm3 (150-450); RBC Distribution Width CV 15.5 % (11.6-14.6); RBC Distribution Width SD 41.5 fl (35.1-43.9); Red Blood Count 5.01 M/mm3 (4.2-5.4); White Blood Count 12.4 K/mm3 (4.4-11.0)
[2024-10-28 17:50] LABS: Magnesium 1.7 mg/dL (1.5-2.2)
[2024-10-28 17:54] LABS: Anion Gap 26 (5-15); BUN 35 mg/dL (4-19); BUN/Creat Ratio 10.4 RATIO (10-20); Calcium,Total 10.5 mg/dL (7.6-11.0); Carbon Dioxide 20.9 mmol/L (21.0-32.0); Chloride 81 mmol/L (98-108); Creatinine, Serum 3.36 mg/dL (0.70-1.20); EST Glomerular Filtration Rate 17 (>60); Estimated Creatinine Clearance 24.64 ml/min (50-250); Glucose 165 mg/dL (70-99); Potassium 4.5 mmol/L (3.3-5.1); Sodium Level 127 mmol/L (133-145)
[2024-10-28 18:11] VITALS: BP 115/85; PULSE 87; RESP 15; O2SAT 100
--- NOTE | 2024-10-28 19:55 | CASEMGMT ---
Care Management Face to Face with patient for initial transition planning/care coordination assessment in the ED.? This appeals writer introduced self and role at [facility]. Patient alert and oriented. Patient willing to participate in assessment and is able to answer all questions appropriately.? Care providers, pharmacy, and demographics verified. Admitting Diagnosis: Acute hyponatremia Other diagnosis history: Including but not limited to: Anxiety, Depression, Borderline, Bi-polar, DVT, hx of bowel obstruction which required partial bowel resection and an ostomy (2024). PCP: Dr. Fredrick Boland Specialists: Vascular Surgeon? (patient unable to remember name), Operations General Agent: Dr. Ballesteros, and newly established ?wound care through [facility].? Patient hasn?t yet had her first appointment and does not know the frequency of services as of yet. Preferred Pharmacy: [facility]. Insurance: [employer]/Medicaid. Prescription Benefit: Yes Living Will/HPOA: ?No and not interested. LNOK: Patient?s mother, Mary Lover and patient?s father, Getachew Joaquinr. Patient also has a 12 year old son, Laith. Living Arrangements: Patient has an apartment with a roommate however has been temporarily staying with her parents for added medical care and support however plans on returning to her own apartment once less support is needed.? Patient?s son does not live with patient. Transportation: Patient drives and also is taken to most medical appointments by her father who assists with transportation. DME: Ostomy supplies HHC: Denied SNF/Rehab: Patient was recently at [facility] in [place] for 6 weeks and was just discharged this past Tuesday. Community Resources: [employer]; Medicaid. Behavioral Health History: Anxiety, Depression, Borderline and Bi-polar. Patient reported she is prescribed medication by her PCP and reported the medication works ?sometimes?. Patient goals: Patient wishes to discharge to the home of her parents when medically ready, and denied any needs for HHC at this time. ??Patient denies any further needs or concerns at this time. Disposition Plan: admission to acute; RN CM/SW to follow for discharge planning needs that may arise. Maria Elena Stover, TOWER DIRECTOR, RN BUILDING
[2024-10-28 20:04] VITALS: BP 113/69; PULSE 82; RESP 18; TEMP 36.6; O2SAT 97
--- NOTE | 2024-10-28 20:18 | PCM.HP.STD ---
HPI - General General Date of Admission: 10/28/24 HPI Narrative CHERYL ROSADO, is a 39 F who presents to the hospital with lightheadedness and dizziness. She has had extensive issues over the last 2 months that started at the end of July where she was found to have severe abdominal pain. 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 She was transferred to [facility] for further evaluation. It appears that she has had significant small bowel resection and currently has an ostomy. Over the last month she states that her ostomy output had started increasing and about a week and a half ago she was admitted to hospital in [place] for dehydration at that time they tested her stools and they were negative for an infectious etiology. She presents today because of dizziness and was found to have renal failure with a creatinine of over 3 with a baseline creatinine of around 1-1.2. This is related to her high ostomy output. Of note she is also having lower extremity numbness which is chronic since this event at the end of July, she is following with wound care in [place] for her gangrenous toes on her left and right foot, ambulation is challenging given the pain. [facility] Medical History Anxiety Borderline personality disorder Bipolar disorder Home Medications ?Medication ?Instructions ?Recorded ?Last Taken ?Type escitalopram oxalate 20 mg tablet 20 mg PO DAILY 04/27/22 06/19/23 History trazodone 150 mg tablet 150 mg PO QHS 04/27/22 06/19/23 History norgestimate 0.25 mg-ethinyl 1 tab PO DAILY 06/20/23 06/19/23 History estradiol 35 mcg tablet (Kaitlyn) olanzapine 20 mg tablet 20 mg PO QHS 06/20/23 06/19/23 History omeprazole 40 mg capsule,delayed 40 mg PO DAILY 06/20/23 06/19/23 History release ferrous sulfate 325 mg (65 mg 325 mg PO DAILY #30 tabs 07/30/24 Unknown Rx iron) tablet potassium chloride 20 mEq 40 meq (2 x 20 mEq) PO DAILY #14 07/30/24 Unknown Rx tablet,extended release tabs Allergy/AdvReac Type Severity Reaction Status Date / Time No Known Allergies Allergy Verified 10/28/24 16:09 Family History (Updated 10/28/24 @ 20:[address] Taras Sue MD) Other Heart disease Surgical History Hx of cholecystectomy H/O section History of carpal tunnel surgery Social History Smoking Status: Former smoker substance use type: does not use ROS Constitutional Constitutional: Reports weakness; Denies chills, fatigue, fever(s) or malaise Eyes Eyes: Denies blurry vision ENT HEENT: Denies headache(s) or nasal discharge Cardiovascular Cardiovascular: Reports lightheadedness; Denies chest pain, dyspnea on exertion or syncope Respiratory/Chest Respiratory/Chest: Denies cough, shortness of breath at rest or shortness of breath with exertion Gastrointestinal Gastrointestinal: Reports diarrhea; Denies constipation, nausea or vomiting Genitourinary Genitourinary: Denies dysuria Neurologic Neurologic: Denies focal weakness, numbness or tremor(s) Psychiatric Psychiatric: Denies anxiety or depression Vital Signs Vital Signs Vital Signs: 10/28/24 16:09 10/28/24 16:29 10/28/24 18:11 Temperature 97.8 F Temperature Source Oral Pulse Rate 96 87 Respiratory Rate 16 15 Blood Pressure 104/93 H 115/85 H Blood Pressure Mean 96 95 Pulse Ox 99 100 Oxygen Delivery Method Room Air Room Air 10/28/24 20:04 Temperature 97.8 F Temperature Source Pulse Rate 82 Respiratory Rate 18 Blood Pressure 113/69 Blood Pressure Mean 83 Pulse Ox 97 Oxygen Delivery Method Weight Weight: 186 lb 11.704 oz Body Mass Index (BMI) 29.2 Physical Exam Narrative General: Alert, Oriented x3, Cooperative, No apparent distress HEENT: Atraumatic, PERRLA, EOMI, Normocephalic Oral: Dry mucosa Neck: Supple, No JVD Lungs: Diminished, Normal air movement, No rhonchi, No wheeze, No rales Cardiovascular: Regular rate, Regular Rhythm, Normal S1, Normal S2, No murmurs Abdomen: Soft, Non Tender, Non-Distended, No Hepato-splenomegaly, ostomy Extremities: No edema, Capillary Refill Less than 3 Seconds Skin: Multiple toes on her left foot are gangrenous, she also has gangrene on the side of her second toe on the right foot Musculoskeletal: No Tenderness to Palpation of Joints or Extremities Neurological: No focal neurological deficits, Motor Exam 5/5 strength throughout, Sensory exam intact to light touch and pain Psych/Mental Status: Normal Affect, Appropriate Results Lab / Micro Data 10/28/24 16:19 10/28/24 16:19 Labs: Laboratory Results - last 24 hr 10/28/24 16:19: WBC 12.4 H, RBC 5.01, Hgb 12.2, Hct 38.3, MCV 76.4 L, MCH 24.4 L, MCHC 31.9 L, RDW Std Deviation 41.5, RDW Coeff of Chris 15.5 H, Plt Count 675 H, MPV 10.1, Immature Gran % (Auto) 0.500, Neut % (Auto) 74.2 H, Lymph % (Auto) 17.1 L, [place] % (Auto) 7.7, Eos % (Auto) 0.1, Baso % (Auto) 0.4, Absolute Neuts (auto) 9.2 H, Absolute Lymphs (auto) 2.13, Nucleated RBC % 0, Sodium 127 L, Potassium 4.5, Chloride 81 L, Carbon Dioxide 20.9 L, Anion Gap 26 H, BUN 35 H, Creatinine 3.36 H, Estim Creat Clear Calc 24.64 L, Est GFR (MDRD) Non-Af 17 L, BUN/Creatinine Ratio 10.4, Glucose 165 H, Calcium 10.5, Magnesium 1.7 Assessment & Plan Assessment/Plan (1) Acute hyponatremia: (2) Diarrhea: (3) Acute kidney injury: PLAN: Plan 1. Acute renal failure secondary to dehydration from high ostomy output as a result of an extensive small bowel resection due to SMA thrombosis/hyponatremia ? Will obtain stool specimens and if negative would recommend starting Imodium ? Continue with IV fluids at 150 cc/h ? Will recheck lab work in the morning including magnesium and phosphorus ? Sodium is 127 and she received a liter bolus in the ER ? She does have a slight leukocytosis 12.4, unclear as to the etiology as her toes while necrotic do not appear infected ? Will consult wound care ? All of her surgeries have occurred including [facility] and her wound care is in [place] ? Renal function on admission is 3.36 baseline creatinine is 1-1.2 2. Bilateral lower extremity gangrene ? Based on the findings of her previous CTA with thoracic aortic mural thrombus and occlusion of her left internal iliac artery, the findings of gangrene on her bilateral feet indicate shower emboli ? She will need to follow-up with surgery in [facility] as well as wound care in [place] for management. ? She denies any IV drug use in the past and does admit to cocaine use 3. Bipolar disorder ? Her home medications are still pending verification, however once verified can restart ? Stable DVT: Heparin 75 minutes was spent on direct patient care, including documentation as well as chart review and collaboration with colleagues Charges/Coding Visit Charges Inpatient E&M: 19312 Init Hosp L3
[2024-10-28 21:00] VITALS: BMI 30.5
[2024-10-28 21:12] VITALS: BP 116/77; PULSE 83; RESP 18; TEMP 36.8; O2SAT 99
[2024-10-28] MEDS: 0.9% Normal Saline (1000mL) 1,000 ML 150 ML IV (21:27)
[2024-10-28] MEDS: Heparin Injection (Vial) 5,000 UNIT/ML VIAL 5000 UNIT SC (22:20)
[2024-10-29 03:11] VITALS: BP 103/80; PULSE 86; RESP 16; TEMP 36.8; O2SAT 99
[2024-10-29] MEDS: 0.9% Normal Saline (1000mL) 1,000 ML 150 ML IV ×3 (04:09→17:53)
[2024-10-29] MEDS: Heparin Injection (Vial) 5,000 UNIT/ML VIAL 5000 UNIT SC ×3 (06:06→22:00)
--- NOTE | 2024-10-29 08:00 | WOUNDNOTE ---
wound photo: left foot
--- NOTE | 2024-10-29 08:01 | WOUNDNOTE ---
wound photo: left foot
--- NOTE | 2024-10-29 08:01 | WOUNDNOTE ---
wound photo: left heel
--- NOTE | 2024-10-29 08:02 | WOUNDNOTE ---
wound photo: right 2nd toe
--- NOTE | 2024-10-29 08:03 | WOUNDNOTE ---
wound photo: right heel
--- NOTE | 2024-10-29 08:19 | PN.HOSP_ITS ---
Reason for Visit Reason for Visit: Diagnoses Hypo-osmolality and hyponatremia (10/28/24) Acute kidney failure, unspecified (10/28/24) Diarrhea, unspecified (10/28/24) Objective Data Objective Data Vital Signs: Vital Signs Temp Pulse Resp BP Pulse Ox O2 Del Method 36.8 C 86 16 103/80 99 Room Air 10/29/24 03:11 10/29/24 03:11 10/29/24 03:11 10/29/24 03:11 10/29/24 03:11 10/29/24 03:11 Oxygen Delivery Method Room Air Weight: 88.5 kg Body Mass Index (BMI) 30.5 Intake & Output: Intake and Output for Last 24 Hours 10/27/24 10/28/24 10/29/24 23:59 23:59 23:59 Intake Total 1600 / 1600 1000 / 1000 Output Total 350 / 350 Balance 1600 / 1250 650 / 650 Lab / Micro Data 10/28/24 16:19 10/28/24 16:19 Labs: Laboratory Results - last 24 hr 10/28/24 16:19: WBC 12.4 H, RBC 5.01, Hgb 12.2, Hct 38.3, MCV 76.4 L, MCH 24.4 L , MCHC 31.9 L, RDW Std Deviation 41.5, RDW Coeff of Chris 15.5 H, Plt Count 675 H, MPV 10.1, Immature Gran % (Auto) 0.500, Neut % (Auto) 74.2 H, Lymph % (Auto) 17.1 L, [place] % (Auto) 7.7, Eos % (Auto) 0.1, Baso % (Auto) 0.4, Absolute Neuts (auto) 9.2 H, Absolute Lymphs (auto) 2.13, Nucleated RBC % 0, Sodium 127 L, Potassium 4.5, Chloride 81 L, Carbon Dioxide 20.9 L, Anion Gap 26 H, BUN 35 H, C reatinine 3.36 H, Estim Creat Clear Calc 24.64 L, Est GFR (MDRD) Non-Af 17 L, BUN/Creatinine Ratio 10.4, Glucose 165 H, Calcium 10.5, Magnesium 1.7 Micro: Microbiology 10/29/24 00:45 Stool Enteric Bacteriology - Final 10/29/24 00:45 Stool Clostridioides difficile (PCR) - Final Assessment & Plan Assessment/Plan (1) Acute kidney injury: PLAN: 2/2 high output colostomy C.diff and eteric panel negative. receiving IVF (2) Acute hyponatremia: PLAN: 2/2 dehydration monitor PLAN: Plan Chronic conditions: * necrotic toes. follows with wound care. * anemia: continue ferrous sulfate. VTE prophylaxis: SQ heparin.
--- NOTE | 2024-10-29 08:19 | PCM.PN.HOSP ---
Reason for Visit Reason for Visit: Diagnoses Hypo-osmolality and hyponatremia (10/28/24) Acute kidney failure, unspecified (10/28/24) Diarrhea, unspecified (10/28/24) Subjective Subjective Output improved, but worse than baseline. Objective Data Objective Data Vital Signs: Vital Signs Temp Pulse Resp BP Pulse Ox O2 Del Method 36.8 C 86 16 103/80 99 Room Air 10/29/24 03:11 10/29/24 03:11 10/29/24 03:11 10/29/24 03:11 10/29/24 03:11 10/29/24 03:11 Oxygen Delivery Method Room Air Weight: 88.5 kg Body Mass Index (BMI) 30.5 Intake & Output: Intake and Output for Last 24 Hours 10/27/24 10/28/24 10/29/24 23:59 23:59 23:59 Intake Total 1600 / 1600 1000 / 1000 Output Total 350 / 350 Balance 1600 / 1250 650 / 650 Lab / Micro Data 10/29/24 07:48 10/29/24 07:48 Labs: Laboratory Results - last 24 hr 10/28/24 16:19: WBC 12.4 H, RBC 5.01, Hgb 12.2, Hct 38.3, MCV 76.4 L, MCH 24.4 L, MCHC 31.9 L, RDW Std Deviation 41.5, RDW Coeff of Chris 15.5 H, Plt Count 675 H, MPV 10.1, Immature Gran % (Auto) 0.500, Neut % (Auto) 74.2 H, Lymph % (Auto) 17.1 L, [place] % (Auto) 7.7, Eos % (Auto) 0.1, Baso % (Auto) 0.4, Absolute Neuts (auto) 9.2 H, Absolute Lymphs (auto) 2.13, Nucleated RBC % 0, Sodium 127 L, Potassium 4.5, Chloride 81 L, Carbon Dioxide 20.9 L, Anion Gap 26 H, BUN 35 H, Creatinine 3.36 H, Estim Creat Clear Calc 24.64 L, Est GFR (MDRD) Non-Af 17 L, BUN/Creatinine Ratio 10.4, Glucose 165 H, Calcium 10.5, Magnesium 1.7 Micro: Microbiology 10/29/24 00:45 Stool Enteric Bacteriology - Final 10/29/24 00:45 Stool Clostridioides difficile (PCR) - Final Physical Exam Const alert and no apparent distress HEENT head/scalp atraumatic and moist oral mucous membranes Resp normal respiratory effort, no retractions, no use of accessory muscles and clear to auscultation bilaterally Cardio regular rate, regular rhythm, S1 normal heart sound and S2 normal heart sound GI normal to inspection, nondistended, normoactive bowel sounds, soft to palpation, non-tender and non-distended GI Narrative: ostomy in LLQ. Assessment & Plan Assessment/Plan (1) Acute kidney injury: PLAN: 2/2 high output colostomy C.diff and eteric panel negative. receiving IVF (2) Acute hyponatremia: PLAN: 2/2 dehydration monitor (3) High output ileostomy: PLAN: Had extensive bowel resection in July. Usually take loperamide, but that has been inneffective. add Lomotil PLAN: Plan Chronic conditions: necrotic toes. follows with wound care. anemia: continue ferrous sulfate. Hg down, but at her baseline. I suspect she was hemoconcentrated on admission. VTE prophylaxis: SQ heparin. Disposition: eventually to home. Hopefully in 1-2 days. Charges/Coding Visit Charges Inpatient E&M: 11791 Subs Hosp L2
[2024-10-29 08:22] LABS: Absolute Lymphocyte Count 1.54 X10^3/uL (0.83-4.51); Absolute Neutrophil Count 3.2 X10^3/uL (2.0-7.7); Basophil# 0.03 X10^3/uL; Basophil% 0.6 % (0-1); Eosinophil# 0.08 X10^3/uL; Eosinophils% 1.5 % (0-5); Hematocrit 27.2 % (37-47); Hemoglobin 8.8 g/dL (12.0-15.0); Lymphocyte # 1.54 X10^3/ul (0.83-4.51); Lymphocyte % 28.9 % (19-41); Mean Corp Hgb Conc 32.4 g/dL (32-36); Mean Corpuscular Hgb 24.4 pg (27.0-32.0); Mean Corpuscular Volume 75.3 fL (81-99); Mean Platelet Vol. 9.3 fl (6.2-12.0); Monocyte% 9.4 % (0-10); NRBC Flagged by Analyzer 0 % (0-5); Neutrophil # 3.16 X10^3/uL (2.7-7.7); Neutrophil % 59.2 % (47-70); Platelet Count 396 K/mm3 (150-450); RBC Distribution Width CV 15.2 % (11.6-14.6); RBC Distribution Width SD 41.3 fl (35.1-43.9); Red Blood Count 3.61 M/mm3 (4.2-5.4); White Blood Count 5.3 K/mm3 (4.4-11.0)
[2024-10-29] MEDS: Gabapentin 300 MG Capsule PO (08:40)
[2024-10-29] MEDS: Pantoprazole Sodium 40 MG Tablet PO (08:40)
[2024-10-29 09:06] LABS: Anion Gap 12 (5-15); BUN 30 mg/dL (4-19); BUN/Creat Ratio 15.4 RATIO (10-20); Calcium,Total 8.5 mg/dL (7.6-11.0); Carbon Dioxide 23.1 mmol/L (21.0-32.0); Chloride 95 mmol/L (98-108); Creatinine, Serum 1.93 mg/dL (0.70-1.20); EST Glomerular Filtration Rate 33 (>60); Estimated Creatinine Clearance 43.82 ml/min (50-250); Glucose 100 mg/dL (70-99); Magnesium 1.5 mg/dL (1.5-2.2); Potassium 3.5 mmol/L (3.3-5.1); Sodium Level 131 mmol/L (133-145)
[2024-10-29 09:10] VITALS: BP 106/73; PULSE 103; RESP 16; TEMP 36.5; O2SAT 95
[2024-10-29 11:18] VITALS: BP 105/67; PULSE 94; RESP 16; TEMP 36.6; O2SAT 97
[2024-10-29] MEDS: Ferrous Sulfate 325 MG Tablet PO (12:17)
[2024-10-29] MEDS: Loperamide 2 MG Capsule PO (12:43)
[2024-10-29] MEDS: Gabapentin 600 MG Tablet PO ×2 (13:51→22:00)
[2024-10-29 14:35] VITALS: BP 108/73; PULSE 82; RESP 16; TEMP 36.8; O2SAT 100
[2024-10-29] MEDS: Diphenoxylate/Atrop 1 Tablet PO (15:12)
[2024-10-29 21:54] VITALS: BP 108/74; PULSE 85; RESP 18; TEMP 36.4; O2SAT 98
[2024-10-29] MEDS: OLANZapine 10 MG Tablet 20 MG PO (22:00)
[2024-10-30] MEDS: 0.9% Normal Saline (1000mL) 1,000 ML 150 ML IV ×4 (00:47→20:35)
[2024-10-30 02:51] VITALS: BP 107/62; PULSE 85; RESP 16; TEMP 36.1; O2SAT 98
[2024-10-30] MEDS: Heparin Injection (Vial) 5,000 UNIT/ML VIAL 5000 UNIT SC ×3 (06:01→21:35)
[2024-10-30] MEDS: Gabapentin 600 MG Tablet PO ×3 (06:01→21:35)
[2024-10-30 06:13] LABS: Absolute Lymphocyte Count 2.28 X10^3/uL (0.83-4.51); Absolute Neutrophil Count 2.8 X10^3/uL (2.0-7.7); Basophil# 0.05 X10^3/uL; Basophil% 0.9 % (0-1); Eosinophil# 0.15 X10^3/uL; Eosinophils% 2.6 % (0-5); Hematocrit 28.3 % (37-47); Hemoglobin 9.1 g/dL (12.0-15.0); Lymphocyte # 2.28 X10^3/ul (0.83-4.51); Lymphocyte % 39.1 % (19-41); Mean Corp Hgb Conc 32.2 g/dL (32-36); Mean Corpuscular Hgb 24.7 pg (27.0-32.0); Mean Corpuscular Volume 76.9 fL (81-99); Monocyte# 0.52 X10^3/uL; Monocyte% 8.9 % (0-10); NRBC Flagged by Analyzer 0 % (0-5); Neutrophil # 2.82 X10^3/uL (2.7-7.7); Neutrophil % 48.3 % (47-70); Platelet Count 403 K/mm3 (150-450); RBC Distribution Width CV 15.1 % (11.6-14.6); RBC Distribution Width SD 41.8 fl (35.1-43.9); Red Blood Count 3.68 M/mm3 (4.2-5.4); White Blood Count 5.8 K/mm3 (4.4-11.0)
[2024-10-30 06:46] LABS: Anion Gap 14 (5-15); BUN 19 mg/dL (4-19); BUN/Creat Ratio 14.8 RATIO (10-20); Calcium,Total 8.6 mg/dL (7.6-11.0); Chloride 100 mmol/L (98-108); Creatinine, Serum 1.26 mg/dL (0.70-1.20); EST Glomerular Filtration Rate 55 (>60); Estimated Creatinine Clearance 67.12 ml/min (50-250); Glucose 96 mg/dL (70-99); Potassium 3.6 mmol/L (3.3-5.1); Sodium Level 135 mmol/L (133-145)
[2024-10-30] MEDS: Potassium Chloride Oral Tablet 20 MEQ 40 MEQ PO (07:49)
[2024-10-30] MEDS: Escitalopram Oxalate 20 MG Tablet PO (07:49)
[2024-10-30] MEDS: Pantoprazole Sodium 40 MG Tablet PO (07:49)
[2024-10-30 08:00] VITALS: BP 101/64; PULSE 65; RESP 18; TEMP 36.3; O2SAT 99
--- NOTE | 2024-10-30 10:35 | WOUNDNOTE ---
Pt states ostomy appliance has remained intact. states she did have to change the bag though d/t a small hole. pt still with loose stools, but states it appears to be slowly thickening. Will monitor. pt denies needs at this time. dressings to bilateral feet changed.n Pt tolerated well.
[2024-10-30] MEDS: Psyllium 1 PACKET PO ×3 (10:50→21:35)
[2024-10-30] MEDS: Loperamide 2 MG Capsule PO ×3 (11:08→20:35)
[2024-10-30] MEDS: Ferrous Sulfate 325 MG Tablet PO (11:14)
--- NOTE | 2024-10-30 13:26 | WOUNDNOTE ---
Pt had stated that she was supposed to be getting supplies from a company called [employer] [facility]. this nurse called this company and they have no record of supplies for her. pt only has the supplies she brought with her. called [employer] and got patient sent up with them for supplies. Ordered [employer] S[employer]ura [place] light convex 2 piece appliances with large volume pouches. #[id number] and #[id number]. ordered [employer] rings #[id number] and Mac barrier strips. pt still having a lot of loose stools. Imodium had not been given since yesterday. NATHANAEL Bello gave patient a dose today then. appliance changed again d/t leak. peristomal skin remains intact. will monitor. pt very appreciative of care.
--- NOTE | 2024-10-30 13:52 | PN.HOSP_ITS ---
Reason for Visit Reason for Visit: Diagnoses Hypo-osmolality and hyponatremia (10/28/24) Acute kidney failure, unspecified (10/28/24) Diarrhea, unspecified (10/28/24) Other specified symptoms and signs involving the digestive system and abdomen (10/28/24) Ileostomy status (10/28/24) Subjective Subjective Patient feeling increasingly better while she is on the IV fluids and is trying to drink by mouth but still reports her ostomy output is high and is still similar output to what caused her dehydration and hospitalization Objective Data Objective Data Vital Signs: Vital Signs Temp Pulse Resp BP Pulse Ox O2 Del Method 97.0 F L 85 16 107/62 98 Room Air 10/30/24 02:51 10/30/24 02:51 10/30/24 02:51 10/30/24 02:51 10/30/24 02:51 10/30/24 07:43 Oxygen Delivery Method Room Air Weight: 88.5 kg Body Mass Index (BMI) 30.5 Intake & Output: Intake and Output for Last 24 Hours 10/28/24 10/29/24 10/30/24 23:59 23:59 23:59 Intake Total 1600 / 1600 4070 / 4070 3090 / 3090 Output Total 350 / 350 500 / 500 Balance 1600 / 1250 3720 / 3720 2590 / 2590 Lab / Micro Data 10/30/24 05:57 10/30/24 05:57 Labs: Laboratory Results - last 24 hr 10/30/24 05:57: WBC 5.8, RBC 3.68 L, Hgb 9.1 L, Hct 28.3 L, MCV 76.9 L, MCH 24.7 L, MCHC 32.2, RDW Std Deviation 41.8, RDW Coeff of Chris 15.1 H, Plt Count 403, MPV 9.0, Immature Gran % (Auto) 0.200, Neut % (Auto) 48.3, Lymph % (Auto) 39.1, [place] % (Auto) 8.9, Eos % (Auto) 2.6, Baso % (Auto) 0.9, Absolute Neuts (auto) 2.8, Absolute Lymphs (auto) 2.28, Nucleated RBC % 0, Sodium 135, Potassium 3.6, Chloride 100, Carbon Dioxide 22.0, Anion Gap 14, BUN 19, Creatinine 1.26 H, Estim Creat Clear Calc 67.12, Est GFR (MDRD) Non-Af 55 L, BUN/Creatinine Ratio 14.8, Glucose 96, Calcium 8.6 Micro: Microbiology 10/29/24 00:45 Stool Enteric Bacteriology - Final 10/29/24 00:45 Stool Clostridioides difficile (PCR) - Final Physical Exam Narrative General: Alert, oriented, no apparent distress HEENT: Atraumatic, normocephalic Eyes: Anicteric, normal conjunctiva, extraocular movements grossly intact Neck: Supple Respiratory: Clear to auscultation bilaterally, normal respiratory effort Cardiovascular: Regular rate and rhythm GI: Soft, nontender, nondistended Extremities: No edema Musculoskeletal: Moving all extremities Neuro: No overt focal neurological deficits Skin: No rashes appreciated Psych: Cooperative Assessment & Plan Assessment/Plan (1) Acute kidney injury: PLAN: 2/2 high output colostomy C.diff and eteric panel negative. receiving IVF -10/30: Creatinine down to 1.26 but she has remained on IV fluids due to her high ostomy output (2) Acute hyponatremia: PLAN: 2/2 dehydration monitor -10/30: Hyponatremia has now resolved given improvement in hydration status (3) High output ileostomy: PLAN: Had extensive bowel resection in July. Usually take loperamide, but that has been inneffective. add Lomotil -10/30: Continues to have high output. Reports it is still about the same as it was before she came in when she became extremely dehydrated and had to be hospitalized, will add psyllium to attempt to help bulk up stool in addition to Lomotil, if patient continues to have high ostomy output even after these interventions may need to consider GI consult PLAN: Plan Chronic conditions: * necrotic toes. follows with wound care. * anemia: continue ferrous sulfate. Hg down, but at her baseline. I suspect she was hemoconcentrated on admission. -10/30: Hemoglobin 9.1 today, stable, no evidence of any acute or ongoing blood loss VTE prophylaxis: SQ heparin. Disposition: eventually to home. Hopefully in 1-2 days. Time spent in the patient's overall evaluation,decision-making process, review of diagnostic data, adjustment of management, discussion with other providers, nursing nursing and ancillary staff involved in patient's care documentation, 37 Minutes Charges/Coding Visit Charges Inpatient E&M: 28993 Subs Hosp L2
[2024-10-30 14:30] VITALS: BP 98/65; PULSE 80; RESP 18; TEMP 36.4; O2SAT 99
[2024-10-30 20:40] VITALS: BP 107/72; PULSE 94; RESP 16; TEMP 37.4; O2SAT 98
[2024-10-30] MEDS: OLANZapine 10 MG Tablet 20 MG PO (21:35)
[2024-10-31 02:22] VITALS: BP 114/73; PULSE 87; RESP 16; TEMP 30.5; O2SAT 18
[2024-10-31] MEDS: 0.9% Normal Saline (1000mL) 1,000 ML 150 ML IV ×3 (02:46→22:22)
[2024-10-31] MEDS: Gabapentin 600 MG Tablet PO ×3 (05:23→22:21)
[2024-10-31] MEDS: Heparin Injection (Vial) 5,000 UNIT/ML VIAL 5000 UNIT SC ×3 (05:25→22:22)
[2024-10-31] MEDS: Psyllium 1 PACKET PO ×3 (05:27→22:21)
[2024-10-31 06:43] LABS: Hematocrit 28.9 % (37-47); Hemoglobin 8.9 g/dL (12.0-15.0); Mean Corp Hgb Conc 30.8 g/dL (32-36); Mean Corpuscular Hgb 24.4 pg (27.0-32.0); Mean Corpuscular Volume 79.2 fL (81-99); Platelet Count 357 K/mm3 (150-450); RBC Distribution Width CV 15.1 % (11.6-14.6); RBC Distribution Width SD 43.3 fl (35.1-43.9); Red Blood Count 3.65 M/mm3 (4.2-5.4); White Blood Count 4.9 K/mm3 (4.4-11.0)
[2024-10-31 07:14] LABS: Anion Gap 13 (5-15); BUN 11 mg/dL (4-19); BUN/Creat Ratio 10.7 RATIO (10-20); Calcium,Total 8.6 mg/dL (7.6-11.0); Carbon Dioxide 21.6 mmol/L (21.0-32.0); Chloride 100 mmol/L (98-108); Creatinine, Serum 1.04 mg/dL (0.70-1.20); EST Glomerular Filtration Rate 69 (>60); Estimated Creatinine Clearance 81.32 ml/min (50-250); Glucose 91 mg/dL (70-99); Potassium 3.2 mmol/L (3.3-5.1); Sodium Level 135 mmol/L (133-145)
--- NOTE | 2024-10-31 07:49 | PCM.PN.HOSP ---
Reason for Visit Reason for Visit: Diagnoses Hypo-osmolality and hyponatremia (10/28/24) Acute kidney failure, unspecified (10/28/24) Diarrhea, unspecified (10/28/24) Other specified symptoms and signs involving the digestive system and abdomen (10/28/24) Ileostomy status (10/28/24) Subjective Subjective Tolerating PO intake. Still with copious fluid excretion in colostomy. Objective Data Objective Data Vital Signs: Vital Signs Temp Pulse Resp BP Pulse Ox O2 Del Method 30.5 C L 87 16 114/73 18 Room Air 10/31/24 02:22 10/31/24 02:22 10/31/24 02:22 10/31/24 02:22 10/31/24 02:22 10/31/24 02:22 Oxygen Delivery Method Room Air Weight: 88.5 kg Body Mass Index (BMI) 30.5 Intake & Output: Intake and Output for Last 24 Hours 10/29/24 10/30/24 10/31/24 23:59 23:59 23:59 Intake Total 4070 / 4070 5017.5 / 5017.5 927.5 / 927.5 Output Total 350 / 350 1000 / 1000 200 / 200 Balance 3720 / 3720 4017.5 / 4017.5 727.5 / 727.5 Lab / Micro Data 10/31/24 06:21 10/31/24 06:21 Labs: Laboratory Results - last 24 hr 10/31/24 06:21: WBC 4.9, RBC 3.65 L, Hgb 8.9 L, Hct 28.9 L, MCV 79.2 L, MCH 24.4 L, MCHC 30.8 L, RDW Std Deviation 43.3, RDW Coeff of Chris 15.1 H, Plt Count 357, MPV 9.0, Sodium 135, Potassium 3.2 L, Chloride 100, Carbon Dioxide 21.6, Anion Gap 13, BUN 11, Creatinine 1.04, Estim Creat Clear Calc 81.32, Est GFR (MDRD) Non-Af 69, BUN/Creatinine Ratio 10.7, Glucose 91, Calcium 8.6 Micro: Microbiology 10/29/24 00:45 Stool Enteric Bacteriology - Final 10/29/24 00:45 Stool Clostridioides difficile (PCR) - Final Physical Exam Const alert and no apparent distress HEENT head/scalp atraumatic and moist oral mucous membranes Resp normal respiratory effort, no retractions, no use of accessory muscles and clear to auscultation bilaterally Cardio regular rate, regular rhythm, S1 normal heart sound and S2 normal heart sound GI normal to inspection, nondistended, normoactive bowel sounds, soft to palpation, non-tender and non-distended GI Narrative: colostomy in place with light brown liquid stool. Neuro Sensorium / Orientation: awake Assessment & Plan Assessment/Plan (1) Acute kidney injury: PLAN: resolved 2/2 high output colostomy C.diff and eteric panel negative. receiving IVF (2) Acute hyponatremia: PLAN: resolved w IVF 2/2 dehydration monitor (3) High output ileostomy: PLAN: Ongoing. Had extensive bowel resection in July. Usually take loperamide, but that has been inneffective. Will schedule imodium and Lomotil, but stagger dosing. (4) Hypokalemia: PLAN: replace. monitor. PLAN: Plan Chronic conditions: necrotic toes. follows with wound care. anemia: continue ferrous sulfate. Hg down, but at her baseline. I suspect she was hemoconcentrated on admission. VTE prophylaxis: SQ heparin. Charges/Coding Visit Charges Inpatient E&M: 64395 Subs Hosp L2
[2024-10-31] MEDS: Potassium Chloride Oral Tablet 20 MEQ 40 MEQ PO (08:32)
[2024-10-31] MEDS: Diphenoxylate/Atrop 1 Tablet PO ×4 (08:32→22:21)
[2024-10-31] MEDS: Escitalopram Oxalate 20 MG Tablet PO (08:33)
[2024-10-31] MEDS: Pantoprazole Sodium 40 MG Tablet PO (08:33)
[2024-10-31 08:39] VITALS: BP 105/65; PULSE 90; RESP 18; TEMP 36.6; O2SAT 99
[2024-10-31] MEDS: Loperamide 2 MG Capsule PO ×2 (11:37→17:52)
[2024-10-31] MEDS: Ferrous Sulfate 325 MG Tablet PO (11:37)
[2024-10-31] MEDS: 0.9% Saline Lock 10 ML Syringe IV (13:31)
[2024-10-31 14:06] VITALS: BP 102/76; PULSE 75; RESP 18; TEMP 36.1; O2SAT 96
[2024-10-31 20:00] VITALS: RESP 15
[2024-10-31 20:46] VITALS: BP 97/59; PULSE 88; RESP 15; TEMP 36.8; O2SAT 97
[2024-10-31] MEDS: OLANZapine 10 MG Tablet 20 MG PO (22:21)
[2024-11-01] MEDS: Loperamide 2 MG Capsule PO ×4 (00:26→17:48)
[2024-11-01 04:00] VITALS: BP 89/55; PULSE 81; RESP 15; TEMP 36.8; O2SAT 98
[2024-11-01] MEDS: 0.9% Normal Saline (1000mL) 1,000 ML 150 ML IV ×3 (05:12→17:47)
[2024-11-01 06:09] VITALS: BP 95/61; PULSE 81; RESP 15; TEMP 36.7; O2SAT 98
[2024-11-01] MEDS: Heparin Injection (Vial) 5,000 UNIT/ML VIAL 5000 UNIT SC ×3 (06:12→22:00)
[2024-11-01] MEDS: Gabapentin 600 MG Tablet PO ×3 (06:12→21:14)
[2024-11-01] MEDS: Psyllium 1 PACKET PO (06:14)
--- NOTE | 2024-11-01 07:54 | PCM.PN.HOSP ---
Reason for Visit Reason for Visit: Diagnoses Hypo-osmolality and hyponatremia (10/28/24) Hypokalemia (10/28/24) Acute kidney failure, unspecified (10/28/24) Diarrhea, unspecified (10/28/24) Other specified symptoms and signs involving the digestive system and abdomen (10/28/24) Ileostomy status (10/28/24) Subjective Subjective Tolerating PO, still with copious liquid BM (had not been solid since her surgery). Feeling dizzy. BP was low earlier today. Objective Data Objective Data Vital Signs: Vital Signs Temp Pulse Resp BP Pulse Ox O2 Del Method 36.7 C 81 15 95/61 98 Room Air 11/01/24 06:09 11/01/24 06:09 11/01/24 06:09 11/01/24 06:09 11/01/24 06:09 11/01/24 06:09 Oxygen Delivery Method Room Air Weight: 88.5 kg Body Mass Index (BMI) 30.5 Intake & Output: Intake and Output for Last 24 Hours 10/30/24 10/31/24 11/01/24 23:59 23:59 23:59 Intake Total 5017.5 / 5017.5 2927.5 / 2927.5 1500 / 1500 Output Total 1000 / 1000 3050 / 3050 1000 / 1000 Balance 4017.5 / 4017.5 -122.5 / -122.5 500 / 500 Lab / Micro Data 10/31/24 06:21 11/01/24 08:07 Micro: Microbiology 10/29/24 00:45 Stool Enteric Bacteriology - Final 10/29/24 00:45 Stool Clostridioides difficile (PCR) - Final Physical Exam Const alert and no apparent distress HEENT head/scalp atraumatic and moist oral mucous membranes Resp normal respiratory effort, no retractions, no use of accessory muscles and clear to auscultation bilaterally Cardio regular rate, regular rhythm, S1 normal heart sound and S2 normal heart sound GI normal to inspection, nondistended, normoactive bowel sounds and soft to palpation GI Narrative: colostomy with liquid light brown stool. Extremity normal to inspection Neuro Sensorium / Orientation: awake and alert Assessment & Plan Assessment/Plan (1) Acute kidney injury: PLAN: resolved 2/2 high output colostomy C.diff and enteric panel negative. receiving IVF (2) Acute hyponatremia: PLAN: resolved w IVF 2/2 dehydration monitor (3) High output ileostomy: PLAN: Ongoing. Had extensive bowel resection in July. Usually take loperamide, but that has been ineffective. Will schedule imodium and Lomotil, but stagger dosing. Increase dosing of lomotil from 1 to 2 tabs. Add Fibercon TID. (4) Hypokalemia: PLAN: ongoing due to volume losses. continue to replace. monitor. PLAN: Plan Chronic conditions: necrotic toes. follows with wound care. anemia: continue ferrous sulfate. Hg down, but at her baseline. I suspect she was hemoconcentrated on admission. VTE prophylaxis: SQ heparin. Charges/Coding Visit Charges Inpatient E&M: 90595 Subs Hosp L2
[2024-11-01 08:59] LABS: Anion Gap 10 (5-15); BUN 9 mg/dL (4-19); BUN/Creat Ratio 8.6 RATIO (10-20); Calcium,Total 8.5 mg/dL (7.6-11.0); Chloride 102 mmol/L (98-108); Creatinine, Serum 1.01 mg/dL (0.70-1.20); EST Glomerular Filtration Rate 72 (>60); Estimated Creatinine Clearance 83.73 ml/min (50-250); Glucose 90 mg/dL (70-99); Potassium 3.2 mmol/L (3.3-5.1); Sodium Level 136 mmol/L (133-145)
[2024-11-01] MEDS: Diphenoxylate/Atrop 1 Tablet PO (09:11)
[2024-11-01] MEDS: Escitalopram Oxalate 20 MG Tablet PO (09:11)
[2024-11-01] MEDS: Potassium Chloride Oral Tablet 20 MEQ 40 MEQ PO (09:11)
[2024-11-01] MEDS: Pantoprazole Sodium 40 MG Tablet PO (09:11)
--- NOTE | 2024-11-01 09:49 | WOUNDNOTE ---
Pt states stool is slowly starting to thicken up. Pt did have to change the appliance one time through the night. Pt has felt very comfortable with appliance changes. appliance intact at this time. will monitor. pt denies ostomy needs at this time. changed dressings to bilateral feet. pt tolerated well.
[2024-11-01 09:59] VITALS: BP 92/62; PULSE 83; RESP 12; TEMP 36.6; O2SAT 98
[2024-11-01 10:00] VITALS: RESP 17; O2SAT 96
[2024-11-01] MEDS: Potassium Chloride Oral Tablet 20 MEQ 60 MEQ PO (11:52)
[2024-11-01] MEDS: Ferrous Sulfate 325 MG Tablet PO (12:40)
[2024-11-01] MEDS: Diphenoxylate/Atrop 1 Tablet 2 TABLET PO ×3 (14:01→21:14)
[2024-11-01 16:00] VITALS: BP 96/60; PULSE 80; RESP 14; TEMP 36.6; O2SAT 97
[2024-11-01 21:09] VITALS: BP 81/51; PULSE 80; RESP 15; TEMP 37.2; O2SAT 98
[2024-11-01] MEDS: OLANZapine 10 MG Tablet 20 MG PO (21:14)
[2024-11-01] MEDS: Albumin Human 25% (100 mL) 25 GM/100 ML BAG IV (22:40)
[2024-11-02] VITALS (10 sets, daily range): BP systolic 82–91; BP diastolic 51–66; PULSE 55–83; RESP 15–16; TEMP 36.4–36.9; O2SAT 97–99
[2024-11-02] MEDS: Gabapentin 600 MG Tablet PO ×3 (05:18→21:38)
[2024-11-02] MEDS: Loperamide 2 MG Capsule PO ×5 (05:18→23:23)
[2024-11-02] MEDS: Heparin Injection (Vial) 5,000 UNIT/ML VIAL 5000 UNIT SC ×3 (05:19→21:38)
[2024-11-02] MEDS: 0.9% Normal Saline (1000mL) 1,000 ML 150 ML IV ×3 (07:00→18:25)
--- NOTE | 2024-11-02 07:35 | PN.HOSP_ITS ---
Reason for Visit Reason for Visit: Diagnoses Hypo-osmolality and hyponatremia (10/28/24) Hypokalemia (10/28/24) Acute kidney failure, unspecified (10/28/24) Diarrhea, unspecified (10/28/24) Other specified symptoms and signs involving the digestive system and abdomen (10/28/24) Ileostomy status (10/28/24) Subjective Subjective Still with copious liquid volume from his colostomy. Tolerating PO. Objective Data Objective Data Vital Signs: Vital Signs Temp Pulse Resp BP Pulse Ox O2 Del Method 36.7 C 67 15 90/54 L 98 Room Air 11/02/24 05:13 11/02/24 05:13 11/02/24 05:13 11/02/24 05:39 11/02/24 05:13 11/02/24 05:13 Oxygen Delivery Method Room Air Weight: 88.5 kg Body Mass Index (BMI) 30.5 Intake & Output: Intake and Output for Last 24 Hours 10/31/24 11/01/24 11/02/24 23:59 23:59 23:59 Intake Total 2927.5 / 2927.5 5137.5 / 5137.5 1100 / 1100 Output Total 3050 / 3050 2300 / 2300 Balance -122.5 / -122.5 2837.5 / 2837.5 1100 / 1100 Lab / Micro Data 10/31/24 06:21 11/02/24 05:52 Labs: Laboratory Results - last 24 hr 11/01/24 08:07: Sodium 136, Potassium 3.2 L, Chloride 102, Carbon Dioxide 24.0, Anion Gap 10, BUN 9, Creatinine 1.01, Estim Creat Clear Calc 83.73, Est GFR (MDRD) Non-Af 72, BUN/Creatinine Ratio 8.6 L, Glucose 90, Calcium 8.5 Micro: Microbiology 10/29/24 00:45 Stool Enteric Bacteriology - Final 10/29/24 00:45 Stool Clostridioides difficile (PCR) - Final Physical Exam Const alert and no apparent distress HEENT head/scalp atraumatic and moist oral mucous membranes Resp normal respiratory effort, no retractions, no use of accessory muscles and clear to auscultation bilaterally Cardio regular rate, regular rhythm, S1 normal heart sound and S2 normal heart sound GI normal to inspection, nondistended, normoactive bowel sounds, soft to palpation, non-tender and non-distended GI Narrative: colostomy with light brown liquid stool. Assessment & Plan Assessment/Plan (1) Acute kidney injury: PLAN: resolved 2/2 high output colostomy C.diff and enteric panel negative. receiving IVF (2) Acute hyponatremia: PLAN: resolved w IVF 2/2 dehydration monitor (3) High output ileostomy: PLAN: Ongoing. Had extensive bowel resection in July. Usually take loperamide, but that has been ineffective. Scheduled loperamide and Lomotil and Fibercon. Add IV pantoprazole and octeotide gtt. (4) Hypokalemia: PLAN: ongoing due to volume losses. continue to replace. monitor. PLAN: Plan Chronic conditions: * necrotic toes. follows with wound care. * anemia: continue ferrous sulfate. Hg down, but at her baseline. I suspect she was hemoconcentrated on admission. VTE prophylaxis: SQ heparin. Charges/Coding Visit Charges Inpatient E&M: 23371 Subs Hosp L2
[2024-11-02 07:42] LABS: Anion Gap 11 (5-15); BUN 7 mg/dL (4-19); BUN/Creat Ratio 7.2 RATIO (10-20); Calcium,Total 8.2 mg/dL (7.6-11.0); Carbon Dioxide 22.3 mmol/L (21.0-32.0); Chloride 106 mmol/L (98-108); Creatinine, Serum 0.96 mg/dL (0.70-1.20); EST Glomerular Filtration Rate 76 (>60); Estimated Creatinine Clearance 88.09 ml/min (50-250); Glucose 79 mg/dL (70-99); Sodium Level 139 mmol/L (133-145)
[2024-11-02] MEDS: Pantoprazole Sodium 40 MG Tablet PO (08:59)
[2024-11-02] MEDS: Escitalopram Oxalate 20 MG Tablet PO (08:59)
[2024-11-02] MEDS: Diphenoxylate/Atrop 1 Tablet 2 TABLET PO ×4 (09:11→22:04)
[2024-11-02] MEDS: Potassium Chloride Oral Tablet 20 MEQ 40 MEQ PO ×2 (10:34→17:44)
[2024-11-02] MEDS: Octreotide 0.5 MG in Dextrose 5%-Water (250mL Bag) 250 ML 12.5 MG CONT INF (10:42)
[2024-11-02] MEDS: Ferrous Sulfate 325 MG Tablet PO (12:32)
--- NOTE | 2024-11-02 14:49 | CASEMGMT ---
NATHANAEL CM into pt room, pt getting wounds dresssed. Pt denies any homegoing needs. She still plans to dc to her parents. Pt states her family is able to perform dressing changes and she will follow with the wound center.
[2024-11-02] MEDS: OLANZapine 10 MG Tablet 20 MG PO (21:38)
[2024-11-02] MEDS: Pantoprazole Sodium 40 MG in 0.9% Normal Saline (100mL MB+) 100 ML 330 MG IV (21:39)
[2024-11-03] VITALS (8 sets, daily range): BP systolic 81–89; BP diastolic 51–61; PULSE 53–80; RESP 14–18; TEMP 36.6–37; O2SAT 97–100
[2024-11-03] MEDS: 0.9% Normal Saline (1000mL) 1,000 ML 150 ML IV ×4 (01:25→22:16)
[2024-11-03] MEDS: Gabapentin 600 MG Tablet PO ×3 (06:23→22:15)
[2024-11-03] MEDS: Loperamide 2 MG Capsule PO ×3 (06:23→18:02)
[2024-11-03] MEDS: Heparin Injection (Vial) 5,000 UNIT/ML VIAL 5000 UNIT SC ×3 (06:24→22:14)
--- NOTE | 2024-11-03 07:43 | PN.HOSP_ITS ---
Reason for Visit Reason for Visit: Diagnoses Hypo-osmolality and hyponatremia (10/28/24) Hypokalemia (10/28/24) Acute kidney failure, unspecified (10/28/24) Diarrhea, unspecified (10/28/24) Other specified symptoms and signs involving the digestive system and abdomen (10/28/24) Ileostomy status (10/28/24) Subjective Subjective Decrease output from ostomy. BP still low. Objective Data Objective Data Vital Signs: Vital Signs Temp Pulse Resp BP Pulse Ox O2 Del Method 36.8 C 67 16 88/51 L 98 Room Air 11/03/24 06:20 11/03/24 06:20 11/03/24 06:20 11/03/24 06:33 11/03/24 06:20 11/03/24 06:20 Oxygen Delivery Method Room Air Weight: 88.5 kg Body Mass Index (BMI) 30.5 Intake & Output: Intake and Output for Last 24 Hours 11/01/24 11/02/24 11/03/24 23:59 23:59 23:59 Intake Total 5137.5 / 5137.5 3059.17 / 3059.17 1999 Output Total 2300 / 2300 900 / 900 600 / 600 Balance 2837.5 / 2837.5 2159.17 / 2159.17 1400 / 1400 Medical Nutrition Assessment Dietitian: Malnutrition Criteria Met Start: 11/02/24 12:39 Freq: Status: Active Protocol: Document 11/02/24 12:39 SLA (Rec: 11/02/24 12:39 SLA [email or web address]) Nutrition Malnutrition Evidence of Yes Malnutrition Exists Malnutrition (severe Acute Illness/Injury ): Evidenced By Suboptimal Energy Intake (Severe),Weight Loss (Severe) Intake Problem Increased Nutrient Needs (specify) Etiology protein related to skin status Signs/Symptoms as evidenced by need for protein supplement to help w/ skin healing. Status Active Problem Clinical Problem Acute Disease or Injury Related Malnutrition Etiology related to GI dysfunction and inadequate energy intake Signs/Symptoms as evidenced by 11.5% unintended wt loss since 08/20/24 and po intake meeting < 75% of estimated nutrition needs x ~ 2 mo d/t SBP and ostomy. Status Active Problem Recommendation Dietitian Will add 1 scoop beneprotein tid w/ meals for increased Recommendations/ protein if consumed Changes Will continue liberal regular diet as ordered d/t signs and symptoms of malnutrition Will continue to follow and monitor for changes in pt nutritional status and make additional rec as indicated . Lab / Micro Data 10/31/24 06:21 11/03/24 08:30 Micro: Microbiology 10/29/24 00:45 Stool Enteric Bacteriology - Final 10/29/24 00:45 Stool Clostridioides difficile (PCR) - Final Physical Exam Const alert and no apparent distress HEENT head/scalp atraumatic and moist oral mucous membranes GI normal to inspection, nondistended, normoactive bowel sounds, soft to palpation, non-tender and non-distended GI Narrative: colostomy with liquid stool. Extremity normal to inspection Neuro Sensorium / Orientation: awake and alert Assessment & Plan Assessment/Plan (1) High output ileostomy: PLAN: Ongoing, improving. Had extensive bowel resection in July. Usually take loperamide, but that has been ineffective. Scheduled loperamide and Lomotil and Fibercon. Started on IV pantoprazole and octeotide gtt 11/02 (2) Acute kidney injury: PLAN: resolved 2/2 high output colostomy C.diff and enteric panel negative. receiving IVF (3) Acute hyponatremia: PLAN: resolved w IVF 2/2 dehydration monitor (4) Hypokalemia: PLAN: ongoing due to volume losses. continue to replace. monitor. (5) Hypotension: PLAN: add midodrine PLAN: Plan Chronic conditions: * necrotic toes. follows with wound care. * anemia: continue ferrous sulfate. Hg down, but at her baseline. I suspect she was hemoconcentrated on admission. VTE prophylaxis: SQ heparin. Charges/Coding Visit Charges Inpatient E&M: 99787 Subs Hosp L2
[2024-11-03] MEDS: Octreotide 0.5 MG in Dextrose 5%-Water (250mL Bag) 250 ML 12.5 MG CONT INF (07:53)
[2024-11-03] MEDS: Potassium Chloride Oral Tablet 20 MEQ 40 MEQ PO ×2 (08:18→16:20)
[2024-11-03 09:32] LABS: Anion Gap 9 (5-15); BUN 4 mg/dL (4-19); BUN/Creat Ratio 4.1 RATIO (10-20); Calcium,Total 8.3 mg/dL (7.6-11.0); Carbon Dioxide 20.6 mmol/L (21.0-32.0); Chloride 110 mmol/L (98-108); Creatinine, Serum 0.99 mg/dL (0.70-1.20); EST Glomerular Filtration Rate 74 (>60); Estimated Creatinine Clearance 85.43 ml/min (50-250); Glucose 100 mg/dL (70-99); Magnesium 1.3 mg/dL (1.5-2.2); Potassium 3.8 mmol/L (3.3-5.1); Sodium Level 140 mmol/L (133-145)
[2024-11-03] MEDS: Pantoprazole Sodium 40 MG in 0.9% Normal Saline (100mL MB+) 100 ML 330 MG IV ×2 (10:06→22:15)
[2024-11-03] MEDS: Escitalopram Oxalate 20 MG Tablet PO (10:07)
[2024-11-03] MEDS: Diphenoxylate/Atrop 1 Tablet 2 TABLET PO ×4 (10:17→22:14)
[2024-11-03] MEDS: Midodrine HCl 5 MG Tablet 10 MG PO ×2 (11:59→16:21)
[2024-11-03] MEDS: Ferrous Sulfate 325 MG Tablet PO (12:00)
[2024-11-03] MEDS: OLANZapine 10 MG Tablet 20 MG PO (22:16)
--- NOTE | 2024-11-03 22:25 | NURSING ---
All meds scanned in room at [facility]. Had to call [employer] . Adrienne HUFFMAN aware of meds not scanning.
[2024-11-04] VITALS (7 sets, daily range): BP systolic 84–100; BP diastolic 53–71; PULSE 58–80; RESP 16–18; TEMP 36.3–37.2; O2SAT 97–100
[2024-11-04] MEDS: Loperamide 2 MG Capsule PO ×5 (01:11→23:29)
[2024-11-04] MEDS: Octreotide 0.5 MG in Dextrose 5%-Water (250mL Bag) 250 ML 12.5 MG CONT INF (03:37)
[2024-11-04] MEDS: Heparin Injection (Vial) 5,000 UNIT/ML VIAL 5000 UNIT SC ×3 (05:08→21:20)
[2024-11-04] MEDS: 0.9% Normal Saline (1000mL) 1,000 ML 150 ML IV ×2 (05:09→11:34)
[2024-11-04] MEDS: Gabapentin 600 MG Tablet PO ×3 (05:09→21:20)
[2024-11-04 06:09] LABS: Anion Gap 9 (5-15); BUN 3 mg/dL (4-19); BUN/Creat Ratio 3.6 RATIO (10-20); Calcium,Total 7.8 mg/dL (7.6-11.0); Carbon Dioxide 17.3 mmol/L (21.0-32.0); Chloride 113 mmol/L (98-108); Creatinine, Serum 0.93 mg/dL (0.70-1.20); EST Glomerular Filtration Rate 79 (>60); Estimated Creatinine Clearance 90.94 ml/min (50-250); Glucose 96 mg/dL (70-99); Potassium 3.9 mmol/L (3.3-5.1); Sodium Level 140 mmol/L (133-145)
[2024-11-04] MEDS: Potassium Chloride Oral Tablet 20 MEQ 40 MEQ PO (08:22)
[2024-11-04] MEDS: Escitalopram Oxalate 20 MG Tablet PO (08:22)
[2024-11-04] MEDS: Midodrine HCl 5 MG Tablet 10 MG PO ×3 (08:22→16:36)
--- NOTE | 2024-11-04 08:35 | PN.HOSP_ITS ---
Reason for Visit Reason for Visit: Diagnoses Hypo-osmolality and hyponatremia (10/28/24) Hypokalemia (10/28/24) Hypotension, unspecified (10/28/24) Acute kidney failure, unspecified (10/28/24) Diarrhea, unspecified (10/28/24) Other specified symptoms and signs involving the digestive system and abdomen (10/28/24) Ileostomy status (10/28/24) Subjective Subjective Feeling well. Decreased output. Tolerating diet. Objective Data Objective Data Vital Signs: Vital Signs Temp Pulse Resp BP Pulse Ox O2 Del Method 36.3 C L 80 16 100/71 100 Room Air 11/04/24 08:17 11/04/24 08:24 11/04/24 08:17 11/04/24 08:17 11/04/24 08:17 11/04/24 08:17 Oxygen Delivery Method Room Air Weight: 88.5 kg Body Mass Index (BMI) 30.5 Intake & Output: Intake and Output for Last 24 Hours 11/02/24 11/03/24 11/04/24 23:59 23:59 23:59 Intake Total 3059.17 / 3059.17 5301.83 / 5701.83 1926.67 / 1926.67 Output Total 900 / 900 1750 / 2050 300 / 300 Balance 2159.17 / 2159.17 3551.83 / 3651.83 1626.67 / 1626.67 Medical Nutrition Assessment Dietitian: Malnutrition Criteria Met Start: 11/02/24 12:39 Freq: Status: Active Protocol: Document 11/02/24 12:39 SLA (Rec: 11/02/24 12:39 SLA [id number]) Nutrition Malnutrition Evidence of Yes Malnutrition Exists Malnutrition (severe Acute Illness/Injury ): Evidenced By Suboptimal Energy Intake (Severe),Weight Loss (Severe) Intake Problem Increased Nutrient Needs (specify) Etiology protein related to skin status Signs/Symptoms as evidenced by need for protein supplement to help w/ skin healing. Status Active Problem Clinical Problem Acute Disease or Injury Related Malnutrition Etiology related to GI dysfunction and inadequate energy intake Signs/Symptoms as evidenced by 11.5% unintended wt loss since 08/20/24 and po intake meeting < 75% of estimated nutrition needs x ~ 2 mo d/t SBP and ostomy. Status Active Problem Recommendation Dietitian Will add 1 scoop beneprotein tid w/ meals for increased Recommendations/ protein if consumed Changes Will continue liberal regular diet as ordered d/t signs and symptoms of malnutrition Will continue to follow and monitor for changes in pt nutritional status and make additional rec as indicated . Lab / Micro Data 10/31/24 06:21 11/04/24 05:22 Labs: Laboratory Results - last 24 hr 11/03/24 08:30: Sodium 140, Potassium 3.8, Chloride 110 H, Carbon Dioxide 20.6 L , Anion Gap 9, BUN 4, Creatinine 0.99, Estim Creat Clear Calc 85.43, Est GFR (MDRD) Non-Af 74, BUN/Creatinine Ratio 4.1 L, Glucose 100 H, Calcium 8.3, M agnesium 1.3 L 11/04/24 05:22: Sodium 140, Potassium 3.9, Chloride 113 H, Carbon Dioxide 17.3 L , Anion Gap 9, BUN 3 L, Creatinine 0.93, Estim Creat Clear Calc 90.94, Est GFR (MDRD) Non-Af 79, BUN/Creatinine Ratio 3.6 L, Glucose 96, Calcium 7.8 Micro: Microbiology 10/29/24 00:45 Stool Enteric Bacteriology - Final 10/29/24 00:45 Stool Clostridioides difficile (PCR) - Final Physical Exam Const alert and no apparent distress HEENT head/scalp atraumatic and moist oral mucous membranes Resp normal respiratory effort, no retractions, no use of accessory muscles and clear to auscultation bilaterally Cardio regular rate, regular rhythm, S1 normal heart sound and S2 normal heart sound GI normal to inspection, nondistended, normoactive bowel sounds, soft to palpation and non-tender GI Narrative: light brown liquid stool in colostomy bag. Neuro Sensorium / Orientation: awake Assessment & Plan Assessment/Plan (1) High output ileostomy: PLAN: Ongoing, improving. Had extensive bowel resection in July. Usually take loperamide, but that has been ineffective. Scheduled loperamide and Lomotil and Fibercon. Started on IV pantoprazole and octeotide gtt 11/02 11/04: improved overall. DC octreotide gtt and IVF. Monitor overnight, hopefully can discharge 11/05. (2) Acute kidney injury: PLAN: resolved 2/2 high output colostomy C.diff and enteric panel negative. HLIV (3) Acute hyponatremia: PLAN: resolved w IVF 2/2 dehydration monitor (4) Hypokalemia: PLAN: resolved. 2/2 ongoing due to volume losses from high-output. replace (5) Hypotension: PLAN: add midodrine PLAN: Plan Chronic conditions: * necrotic toes. follows with wound care. * anemia: continue ferrous sulfate. Hg down, but at her baseline. I suspect she was hemoconcentrated on admission. VTE prophylaxis: SQ heparin. Charges/Coding Visit Charges Inpatient E&M: 91004 Subs Hosp L2
[2024-11-04] MEDS: Pantoprazole Sodium 40 MG in 0.9% Normal Saline (100mL MB+) 100 ML 330 MG IV ×2 (09:31→21:18)
[2024-11-04] MEDS: 0.9% Saline Lock 10 ML Syringe IV ×2 (09:31→13:52)
[2024-11-04] MEDS: Diphenoxylate/Atrop 1 Tablet 2 TABLET PO ×4 (09:31→21:20)
[2024-11-04] MEDS: Magnesium Sulfate 4gm/100mL 4 GM/100 ML IV.SOLN. IV (10:43)
[2024-11-04] MEDS: Ferrous Sulfate 325 MG Tablet PO (11:34)
[2024-11-04] MEDS: OLANZapine 10 MG Tablet 20 MG PO (21:20)
[2024-11-04] MEDS: Albumin Human 25% (100 mL) 25 GM/100 ML BAG IV (23:28)
[2024-11-05 01:18] VITALS: BP 84/56; PULSE 74; RESP 18; TEMP 36.7; O2SAT 98
[2024-11-05 05:11] VITALS: BP 87/57; PULSE 65; RESP 18; TEMP 36.8; O2SAT 97
[2024-11-05] MEDS: Gabapentin 600 MG Tablet PO (05:18)
[2024-11-05] MEDS: Heparin Injection (Vial) 5,000 UNIT/ML VIAL 5000 UNIT SC (05:18)
[2024-11-05] MEDS: Loperamide 2 MG Capsule PO (05:18)
[2024-11-05 07:02] LABS: Anion Gap 10 (5-15); BUN 4 mg/dL (4-19); BUN/Creat Ratio 4.7 RATIO (10-20); Calcium,Total 8.6 mg/dL (7.6-11.0); Carbon Dioxide 19.7 mmol/L (21.0-32.0); Chloride 110 mmol/L (98-108); Creatinine, Serum 0.94 mg/dL (0.70-1.20); EST Glomerular Filtration Rate 78 (>60); Estimated Creatinine Clearance 89.97 ml/min (50-250); Glucose 85 mg/dL (70-99); Potassium 3.7 mmol/L (3.3-5.1); Sodium Level 139 mmol/L (133-145)
[2024-11-05 07:38] VITALS: BP 84/51; PULSE 60; RESP 16; TEMP 36.8; O2SAT 97
[2024-11-05] MEDS: Escitalopram Oxalate 20 MG Tablet PO (07:52)
[2024-11-05] MEDS: Midodrine HCl 5 MG Tablet 10 MG PO (07:54)
[2024-11-05] MEDS: Diphenoxylate/Atrop 1 Tablet 2 TABLET PO (08:01)
--- NOTE | 2024-11-05 09:08 | PCM.DC.SUM ---
Providers Date of Admission: 10/28/24 Primary Care Physician: Dr. Fredrick Boland, DO Consultations 10/28/24 21:00 Consult: Onc/Wound/nurses' association counselor Routine Comment: Reason for Consult:: Osotmy and toe gangrene bilaterally Reason For Visit: JONATAN WITH HIGH OSTOMY OUTPUT Diagnosis Discharge Diagnosis (1) High output ileostomy: Status: Acute Code(s): R19.8 - Other specified symptoms and signs involving the digestive system and abdomen; Z93.2 - Ileostomy status Plan: Ongoing, improving. Had extensive bowel resection in July. Usually take loperamide, but that has been ineffective. Scheduled loperamide and Lomotil and Fibercon. Started on IV pantoprazole and octeotide gtt 11/02 11/04: improved overall. DC octreotide gtt and IVF. Monitor overnight, hopefully can discharge 11/05. 11/05: feeling better. Will dc with scheduled Lomotil, Fibercon and PRN loperamide. Pt advised to seek attention if output worsens. (2) Acute kidney injury: Status: Acute Code(s): N17.9 - Acute kidney failure, unspecified Plan: resolved 2/2 high output colostomy C.diff and enteric panel negative. HLIV (3) Acute hyponatremia: Status: Acute Code(s): E87.1 - Hypo-osmolality and hyponatremia Plan: resolved w IVF 2/2 dehydration monitor (4) Hypokalemia: Status: Inactive Code(s): E87.6 - Hypokalemia Plan: resolved. 2/2 ongoing due to volume losses from high-output. replace (5) Hypotension: Status: Acute Code(s): I95.9 - Hypotension, unspecified Plan: asymptomatic. Has been up and does not feel dizzy. continue midodrine. Plan Chronic conditions: necrotic toes. follows with wound care. Follow up with Dr. Mccarthy at [facility]. anemia: continue ferrous sulfate. Hg down, but at her baseline. I suspect she was hemoconcentrated on admission. 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 Resume enoxaparin. Follow up with surgeons Drs. Smith and Nilson (Reviewed DC summary from [facility] on 10/26/24) VTE prophylaxis: SQ heparin. Medications at Discharge Home Medications escitalopram oxalate 20 mg tablet 20 mg PO DAILY ASK PCP 04/27/22 olanzapine 20 mg tablet 20 mg PO QHS ASK PCP 06/20/23 omeprazole 40 mg capsule,delayed release 40 mg PO DAILY ASK PCP 06/20/23 ferrous sulfate 325 mg (65 mg iron) tablet 325 mg PO DAILY ASK PCP #30 tabs 07/30/24 potassium chloride 20 mEq tablet,extended release 40 meq (2 x 20 mEq) PO DAILY ASK PCP #14 tabs 07/30/24 enoxaparin 100 mg/mL subcutaneous syringe mg subcut ASK PCP 10/28/24 gabapentin 600 mg tablet 600 mg PO TID ASK PCP 10/28/24 calcium polycarbophil 625 mg tablet (Fiber (calcium polycarbophil)) 1,250 mg (2 x 625 mg) PO TID #90 tabs 11/05/24 diphenoxylate-atropine 2.5 mg-0.025 mg tablet 2 tab PO 4X/DAY #120 tabs 11/05/24 loperamide 2 mg capsule 2 mg PO Q6 PRN Diarrhea #0 caps 11/05/24 midodrine 5 mg tablet 10 mg (2 x 5 mg) PO TIDCM #90 tabs 11/05/24 Hospital Course Operations None Procedures None Summary of Care Provided Minutes Spent on Discharge: 35 Hospital Course: This is a 39-year-old female presents with high output ileostomy and JONATAN as well as hyperkalemia. 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 Patient was just discharged on the second from [facility] to come back 2 days later to our institution. Patient was started on scheduled loperamide in addition to continue with IV fluids. Her JONATAN did improve. Loperamide did not stop her high output so that was scheduled as well stagger dosing of Imodium and that did not help as well as the patient need to be initiated on octreotide drip as well as IV pantoprazole. That seemed to have helped overall. Patient has been tolerating diet while she was here. Patient has had issues with low blood pressure but she has been asymptomatic. Patient has been started on midodrine and will continue that for now. Patient has had not necrotic toes due to ischemia that she had along with her mesenteric ischemia. Patient has been seeing a product safety compliance leader, Dr. Mccarthy, at [facility] and follow-up with him as outpatient. Physical Exam Const alert and no apparent distress Resp normal respiratory effort, no retractions, no use of accessory muscles and clear to auscultation bilaterally Cardio regular rate, regular rhythm, S1 normal heart sound and S2 normal heart sound GI normal to inspection, nondistended, normoactive bowel sounds, soft to palpation and non-tender Skin no rashes or lesions noted, no wounds and skin turgor normal Neuro oriented x3 and CN's II-XII intact bilaterally Sensorium / Orientation: awake and alert Medical Records Data Medical Nutrition Assessment Dietitian: Malnutrition Criteria Met Start: 11/02/24 12:39 Freq: Status: Active Protocol: Document 11/02/24 12:39 SLA (Rec: 11/02/24 12:39 SLA 10..25.7) Nutrition Malnutrition Evidence of Yes Malnutrition Exists Malnutrition (severe Acute Illness/Injury ): Evidenced By Suboptimal Energy Intake (Severe),Weight Loss (Severe) Intake Problem Increased Nutrient Needs (specify) Etiology protein related to skin status Signs/Symptoms as evidenced by need for protein supplement to help w/ skin healing. Status Active Problem Clinical Problem Acute Disease or Injury Related Malnutrition Etiology related to GI dysfunction and inadequate energy intake Signs/Symptoms as evidenced by 11.5% unintended wt loss since 08/20/24 and po intake meeting < 75% of estimated nutrition needs x ~ 2 mo d/t SBP and ostomy. Status Active Problem Recommendation Dietitian Will add 1 scoop beneprotein tid w/ meals for increased Recommendations/ protein if consumed Changes Will continue liberal regular diet as ordered d/t signs and symptoms of malnutrition Will continue to follow and monitor for changes in pt nutritional status and make additional rec as indicated . Weight / BMI Weight Weight: 88.5 kg Body Mass Index (BMI) 30.5 ABG / Lab / Microbiology Data 10/31/24 06:21 11/05/24 06:10 Laboratory: Laboratory Results - last 24 hr 11/05/24 06:10: Sodium 139, Potassium 3.7, Chloride 110 H, Carbon Dioxide 19.7 L, Anion Gap 10, BUN 4, Creatinine 0.94, Estim Creat Clear Calc 89.97, Est GFR (MDRD) Non-Af 78, BUN/Creatinine Ratio 4.7 L, Glucose 85, Calcium 8.6 Microbiology: Microbiology 10/29/24 00:45 Stool Enteric Bacteriology - Final 10/29/24 00:45 Stool Clostridioides difficile (PCR) - Final D/C Instructions Discharge Diet: No restrictions DC O2, CPAP, BIPAP Needs Home O2 Discharge instructions: No Meaningful Use Info Meaningful Use Meaningful Use Diagnoses (Choose all that apply): None applicable Ischemic Stroke Statin Dosing Therapy Reference: STATIN DOSE THERAPY REFERENCE: * Patients > 75 years receive moderate or high dose statin therapy. * Patients 75 years or YOUNGER should receive HIGH intensity statin dose unless contraindicated. You will be required to document reason for non-treatment if statin daily dose does not meet guidelines. HIGH DOSE STATIN THERAPY DAILY Atorvastatin > than or = to 40 mg Rosuvastatin > than or = to 20 mg Amlodipine + Atorvastatin > than or = to 2.5/40 mg Ezetimibe + Simvastatin 10/80 mg Simvastatin 80mg Discharge Plan Admission Admit Date/Time: 10/28/24 20:13 Primary Reason for Your Visit: high-output colostomy. Attending Provider: Joshua Hugo Primary Care Provider: Fredrick Boland Consulting Providers: Taras Sue; Joshua Hugo; Ashley Rosen Instructions Additional Instructions / Restrictions: Follow up with your surgeons, Drs. Smith and Nilson in 2 weeks. Follow up with podiatry, Dr. Mccarthy, in 2 weeks. You will be taking Lomotil and Fibercon 4 and 3 times per day, respectively. Take loperamide (Imodium) 4 times per day as needed. Follow up with your primary care physician in 1-2 weeks. You will need lab work to see how your labs are doing. Continue taking enoxaparin as previously instructed. Your physicians may eventually change you something by mouth. I am recommending stopping your control pill as these can increase your chances of further blood clots. Discharge Orders/Prescriptions Prescriptions: New calcium polycarbophil [Fiber (calcium polycarbophil)] 625 mg Tablet 1,250 mg PO TID Qty: 90 0RF loperamide 2 mg Capsule 2 mg PO Q6 PRN (Reason: Diarrhea) Qty: 0 0RF midodrine 5 mg Tablet 10 mg PO TIDCM Qty: 90 0RF diphenoxylate-atropine 2.5-0.025 mg Tablet 2 tab PO 4X/DAY Qty: 120 0RF Continued escitalopram oxalate 20 mg tablet 20 mg PO DAILY Patient Comments: TAKE 1 TABLET BY MOUTH EVERY DAY olanzapine 20 mg tablet 20 mg PO QHS Patient Comments: TAKE 1 TABLET BY MOUTH EVERYDAY AT BEDTIME omeprazole 40 mg capsule,delayed release(DR/EC) 40 mg PO DAILY Patient Comments: TAKE 1 CAPSULE BY MOUTH ONCE DAILY ferrous sulfate 325 mg (65 mg iron) tablet 325 mg PO DAILY Qty: 30 0RF potassium chloride 20 mEq tablet extended release 40 meq PO DAILY Qty: 14 0RF enoxaparin 100 mg/mL syringe subcut Patient Comments: PT STATES SHE HAS NOT HAD FOR SEVERAL DAYS, BELIEVES SHE IS SUPPOSED TO START A NEW BLOOD THINNER gabapentin 600 mg tablet 600 mg PO TID Discontinued norgestimate-ethinyl estradiol [Kaitlyn] 0.25-35 mg-mcg tablet 1 tab PO DAILY Patient Comments: TAKE 1 TABLET BY MOUTH ONCE DAILY. OKAY TO SKIP PLACEBO WEEK AND START ON NEXT PACKAGE Rx Instructions: HAS NOT HAD FOR TWO MONTHS loperamide 2 mg capsule PO Referrals / Follow Up: Fredrick Boland DO [Primary Care Provider] - Within 1 Week Disposition Disposition (needs filled in before D/C Order can be placed): Home, Self Care Charges/Coding Visit Charges Inpatient E&M: 61552 Disch Hosp >30min
== END 2024-11-05 11:30 | disposition home or self-care (01) | DRG 469 ==
LOC: ED 19:09 → MS3 20:19
PROVIDERS: Internal Medicine; Admitting Provider Family Medicine; Emergency Provider Emergency Medicine; PCP Student in an Organized Health Care Education/Training Program
DX: N17.9 Acute kidney failure, unspecified (principal); E43 Unspecified severe protein-calorie malnutrition; I96 Gangrene, not elsewhere classified; F31.9 Bipolar disorder, unspecified; D64.9 Anemia, unspecified; Z93.3 Colostomy status; E87.1 Hypo-osmolality and hyponatremia; E87.6 Hypokalemia; K90.822 Short bowel syndrome without colon in continuity; Z93.2 Ileostomy status; Z79.899 Other long term (current) drug therapy; Z68.29 Body mass index [BMI] 29.0-29.9, adult; Z87.891 Personal history of nicotine dependence; Z86.718 Personal history of other venous thrombosis and embolism
CPT/HCPCS: 36415; 80048; 83735; 84100; 85025; 85027; 87493; 87506; 99285; P9047; A4216

== ENCOUNTER 2024-11-13 12:42 | Inpatient (IN) | payer MEDICAID, SELFPAY ==
[2024-11-13] VITALS (17 sets, daily range): BP systolic 66–116; BP diastolic 43–89; PULSE 84–121; RESP 13–20; TEMP 35.9–37.3; O2SAT 95–100; BMI 28.7; BMI 29.4
[2024-11-13] MEDS: 0.9% Normal Saline (1000mL) 1,000 ML 999 ML IV ×3 (13:00→15:17)
--- NOTE | 2024-11-13 13:00 | EKG12_ITS ---
Test Reason : DIZZINESS Blood Pressure : */* mmHG Vent. Rate : 119 BPM Atrial Rate : 119 BPM P-R Int : 128 ms QRS Dur : 88 ms QT Int : 312 ms P-R-T Axes : 40 -27 48 degrees QTcB Int : 438 ms Sinus tachycardia Otherwise normal ECG Confirmed by AZEEM VO, JOE ([id number]), avid editor APPLE LANDRY ([id number]) on 11/14/2024 10:27:11 AM Referred By: MANDEEP/MEGHAN Confirmed By: JOE GANN MD
[2024-11-13 13:21] LABS: Absolute Lymphocyte Count 2.31 X10^3/uL (0.83-4.51); Absolute Neutrophil Count 7.9 X10^3/uL (2.0-7.7); Basophil# 0.08 X10^3/uL; Basophil% 0.7 % (0-1); Eosinophil# 0.06 X10^3/uL; Eosinophils% 0.5 % (0-5); Hematocrit 41.3 % (37-47); Hemoglobin 13.2 g/dL (12.0-15.0); Lymphocyte # 2.31 X10^3/ul (0.83-4.51); Lymphocyte % 20.3 % (19-41); Mean Corpuscular Hgb 24.4 pg (27.0-32.0); Mean Corpuscular Volume 76.3 fL (81-99); Mean Platelet Vol. 9.4 fl (6.2-12.0); Monocyte# 0.97 X10^3/uL; Monocyte% 8.5 % (0-10); NRBC Flagged by Analyzer 0 % (0-5); Neutrophil # 7.89 X10^3/uL (2.7-7.7); Neutrophil % 69.5 % (47-70); POSITIVE COUNT YES; Platelet Count 816 K/mm3 (150-450); RBC Distribution Width CV 16.2 % (11.6-14.6); RBC Distribution Width SD 43.6 fl (35.1-43.9); Red Blood Count 5.41 M/mm3 (4.2-5.4); White Blood Count 11.4 K/mm3 (4.4-11.0)
--- NOTE | 2024-11-13 13:23 | ED.VIS.DYS ---
HPI History of Present Illness Chief Complaint: Shortness of Breath Narrative Narrative: Chief complaint and HPI: Shortness of breath and lightheadedness. History taken by patient as well as medical record. Hospitalist discharge summary. 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 Patient states since her surgery she has had multiple admissions for dehydration due to ileostomy output. Patient states that she was recently admitted and discharged from the hospital for same complaint. She states since discharge she has continued to have lightheadedness and shortness of breath, worse on exertion. She states her ileostomy output has improved with the medications that were recently prescribed to her. She states that her toes are ischemic from her previous thrombosis. Patient states that she was placed on anticoagulation in July however is currently not on anticoagulation. When I asked her when she stopped her anticoagulation she states on discharge as she was not prescribed anything. On discharge summary from 11/05 patient was supposed to continue her home Lovenox. She was started on midodrine and medication to help with her ileostomy output. She was supposed to follow-up with her project coordinator at [facility] outpatient for her toes. Patient states that she did not know she was supposed to continue her home Lovenox. She states that she does not even have any on Lovenox at home to take. Review of systems: See HPI Medications: As listed on the chart Allergies: As listed on the chart PFSH: Per chart Vital signs: As listed on the chart. Reviewed. Physical exam: Gen: A&O x3, unwell appearing Head: Normocephalic, atraumatic Eyes: No sclera icterus, conjunctiva clear, PERRL, EOMI ENT: Very dry mucous membranes Neck: Trachea midline, No JVD CV: Tachycardic, regular rhythm, no murmurs, no peripheral edema Resp: Lungs CTA BL, no w/r/c GI: Abd soft, non-distended, non-tender, no r/r/g, + ileostomy with minimal output : No CVA tenderness Musc: Moves all extremities, no deformity, bilateral ischemic toes and heels-left second toe partially amputated on the dorsal aspect of the toe but still connected on the plantar aspect-moist, this was discovered with removing her socks. She states that her toe was not like this earlier today. Skin: Pale, very dry Neuro: Alert, oriented, grossly intact, sensation intact Psych: Cooperative [facility] Medical History (Updated 11/13/24 @ 16:[address] Ashley Rosen MD) Ischemic necrosis of toe Hx of blood clots Diarrhea Tobacco use Obesity Anxiety Borderline personality disorder Bipolar disorder Home Medications ?Medication ?Instructions ?Recorded ?Last Taken ?Type escitalopram oxalate 20 mg tablet 20 mg PO DAILY ASK PCP 04/27/22 06/19/23 History olanzapine 20 mg tablet 20 mg PO QHS ASK PCP 06/20/23 06/19/23 History omeprazole 40 mg capsule,delayed 40 mg PO DAILY ASK PCP 06/20/23 06/19/23 History release ferrous sulfate 325 mg (65 mg 325 mg PO DAILY ASK PCP #30 tabs 07/30/24 Unknown Rx iron) tablet potassium chloride 20 mEq 40 meq (2 x 20 mEq) PO DAILY ASK 07/30/24 Unknown Rx tablet,extended release PCP #14 tabs enoxaparin 100 mg/mL subcutaneous mg subcut ASK PCP 10/28/24 Unknown History syringe gabapentin 600 mg tablet 600 mg PO TID ASK PCP 10/28/24 Unknown History calcium polycarbophil 625 mg 1,250 mg (2 x 625 mg) PO TID #90 11/05/24 Unknown Rx tablet (Fiber (calcium tabs polycarbophil)) diphenoxylate-atropine 2.5 2 tab PO 4X/DAY #120 tabs 11/05/24 Unknown Rx mg-0.025 mg tablet loperamide 2 mg capsule 2 mg PO Q6 PRN Diarrhea #0 caps 11/05/24 Unknown Rx midodrine 5 mg tablet 10 mg (2 x 5 mg) PO TIDCM #90 tabs 11/05/24 Unknown Rx Allergy/AdvReac Type Severity Reaction Status Date / Time No Known Allergies Allergy Verified 10/28/24 16:09 Family History (Updated 10/28/24 @ 20:[address] Taras Sue MD) Other Heart disease Surgical History (Updated 11/13/24 @ 00:01 by Noe Chavira) History of creation of ostomy Hx of cholecystectomy H/O section History of carpal tunnel surgery Social History Smoking Status: Former smoker substance use type: does not use EXAM Physical Exam Const Vital Signs: 11/13/24 12:43 11/13/24 13:39 11/13/24 13:39 Temperature 96.6 F L 99.1 F Temperature Source Temporal Core Pulse Rate 121 H 96 94 Respiratory Rate 16 13 17 Respiratory Effort Respiratory Depth Respiratory Pattern Blood Pressure 66/43 L 105/73 105/73 Blood Pressure Mean 50 83 83 Pulse Ox 99 95 97 Oxygen Delivery Method Room Air 11/13/24 14:10 11/13/24 14:11 11/13/24 14:34 Temperature 98.5 F 98.5 F Temperature Source Core Core Pulse Rate 103 H 90 Respiratory Rate 20 H 13 Respiratory Effort Short of Breath Respiratory Depth Normal Respiratory Pattern Normal Blood Pressure 105/73 90/60 Blood Pressure Mean 83 70 Pulse Ox 98 100 Oxygen Delivery Method Room Air Room Air 11/13/24 15:00 11/13/24 15:57 Temperature 98.6 F 98.6 F Temperature Source Core Pulse Rate 86 89 Respiratory Rate 18 18 Respiratory Effort Respiratory Depth Respiratory Pattern Blood Pressure 100/62 95/62 Blood Pressure Mean 74 73 Pulse Ox 98 98 Oxygen Delivery Method Room Air MDM MDM MDM Narrative Medical decision making narrative: 39-year-old female with 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 Associated symptom is partially auto-amputated left second toe. Patient has been off of her Lovenox since 11/05. On presentation, patient is unwell appearing. She is pale, hypotensive with a blood pressure of 66/43, tachycardic with a heart rate of 121. Afebrile. Differential diagnosis includes but is not limited to sepsis secondary to toe gangrene, dehydration, electrolyte abnormality, PE, pneumonia. Patient was made a sepsis alert. 30 cc/kg bolus started. Patient given prophylactic vancomycin and Zosyn. Sepsis workup ordered including CTA chest to assess for PE. X-ray of the left foot obtained with CRP and ESR. EKG reviewed see below. CBC with a leukocytosis 11.4. No anemia. Patient has new thrombocytosis with a platelet count of 816. Coagulation panel unremarkable. CMP shows severe dehydration with JONATAN. Patient has moderate to almost severe hyponatremia at 126. Sodium was normal on 11/05. She has hypochloremia with a bicarb of 17. Anion gap is 23. BUN is 66 with a creatinine of 3.7. BUN and creatinine were normal on 11/05. Patient could not get CTA to assess for PE given kidney function. CTA canceled. Will get chest x-ray. Lactic acid 5.8. I do suspect that this is secondary to dehydration. Fluids running. Patient has transaminitis which I think is secondary to her hypotension. She is not having any abdominal pain and abdominal exam is unremarkable. AST 197, ALT 366, total bilirubin 1.93, Alkaline phosphatase 459. Troponin 30 and 20. Suspect this is type II from hypotension. Patient not endorsing any chest pain. BNP unremarkable. CRP 10.9. ESR 87. UA negative for UTI. Chest x-ray reviewed see below. x-ray of the foot was personally reviewed and interpreted by me. No obvious fracture or dislocation. Soft tissue swelling. Per radiology there is significant flexion at the second PIP which limits evaluation. This is in flexion secondary to the patient being partially amputated. Patient will warrant admission to the ICU. Patient updated of all the results and confirmed understanding of the plan. I spoke with the hospitalist service who accept admission to the ICU. She is agreement of starting heparin given patient has been off of her anticoagulation and unknown if she has PE. Agrees with holding off on bolus for now. I spoke with podiatry in consult, they will see the patient in the ICU. After patient was admitted to the hospital I did receive a call from a nurse from [facility]. She states that the patient is supposed to follow-up with Alyson finn who is a surgeon. They were updated of the patient's care here in the emergency department as they knew she was here. They know she is being admitted to the ICU. They left their phone number at [phone] in case patient will need to be transferred to their facility. I did make Dr. Rosen aware of this. Patient's tachycardia and blood pressure have improved with fluid resuscitation. Patient transferred to the ICU. EKG: Interpreted by me/EM physician: EKG shows sinus tachycardia without any acute ischemic changes. Heart rate 119 Diagnostic: Interpreted by me/EM physician: Chest x-ray without pneumonia, effusion, cardiomegaly, pneumothorax. Radiology in agreement. 60 minutes of critical care time utilized in managing the patient. This is due to high probability of and deterioration of the patient based on the patient's condition and excludes any separately billable procedures. Impression: 1. Hypotension-multifactorial due to severe dehydration as well as possible sepsis from ischemic left second toe 2. Possible sepsis from ischemic left second toe with autoamputation 3. Severe dehydration with JONATAN 4. Moderate to severe hyponatremia 5. Thrombocytosis 6. Hypochloremia 7. Metabolic anion gap acidosis with lactic acidosis -multifactorial secondary to above 8. Hyperbilirubinemia 9. Transaminitis 10. Elevated alkaline phosphatase 11. Elevated troponin likely secondary to hypotension and type II demand 12. Shortness of breath with possible PE 13. History of bowel ischemia with ileostomy 12. History of DVT not on anticoagulation Lab Data Labs: Laboratory Results - last 24 hr 11/13/24 11/13/24 11/13/24 12:48 13:34 14:35 WBC 11.4 H RBC 5.41 H Hgb 13.2 Hct 41.3 MCV 76.3 L MCH 24.4 L MCHC 32.0 RDW Std Deviation 43.6 RDW Coeff of Chris 16.2 H Plt Count 816 H* MPV 9.4 Immature Gran % (Auto) 0.500 Neut % (Auto) 69.5 Lymph % (Auto) 20.3 [place] % (Auto) 8.5 Eos % (Auto) 0.5 Baso % (Auto) 0.7 Absolute Neuts (auto) 7.9 H Absolute Lymphs (auto) 2.31 Nucleated RBC % 0 Diff Path Review May foll Platelet Estimate MKD INC PT 13.9 INR 1.1 APTT 29.6 Sodium 126 L Potassium 4.1 Chloride 86 L Carbon Dioxide 17.0 L Anion Gap 23 H BUN 66 H Creatinine 3.70 H Estim Creat Clear Calc 22.19 L Est GFR (MDRD) Non-Af 15 L BUN/Creatinine Ratio 17.9 Glucose 168 H Lactic Acid 5.8 H* Calcium 11.0 Total Bilirubin 1.93 H AST 197 H ALT 336 H Alkaline Phosphatase 459 H Troponin T High Sens 30 H 20 H D C-React Prot Ext Range 10.90 H NT pro BNP II 46 Total Protein 10.3 H Albumin 4.8 Globulin 5.5 H Albumin/Globulin Ratio 0.9 Urine Color Yellow Urine Clarity Clear Urine pH 5.0 Ur Specific [place] 1.025 Urine Protein 30 H Urine Glucose (UA) Normal Urine Ketones Negative Urine Occult Blood Negative Urine Nitrite Negative Urine Bilirubin Negative Urine Urobilinogen Normal Ur Leukocyte Esterase Negative Urine RBC 0 SEEN Urine WBC 0-5 SEEN Ur Squamous Epith Cells 0-5 SEEN Urine Bacteria 0 SEEN Hyaline Casts 10-25 SEEN Urine Mucus 0 SEEN Radiography Diagnostic Testing: Clinical Impression(s) from Imaging Studies Chest X-Ray 11/13/24 14:13 IMPRESSION: NO ACUTE FINDINGS. [facility] 11/13/24 15:30 IMPRESSION: 1. Soft tissue swelling without acute fracture. 2. Significant flexion at the 2nd PIP, which limit the evaluation. 3. If symptoms persist, further evaluation with CT is recommended. Reading Location: [facility] Discharge Plan Disposition Disposition: Acute Care Hospital [facility] Discharge Date/Time: 11/13/24 17:10
[2024-11-13 13:31] LABS: International Normalized Ratio 1.1; Prothrombin Time (Protime)PT. 13.9 SECONDS (11.7-14.9)
[2024-11-13 13:32] LABS: Partial Thromboplast Time 29.6 Seconds (24.1-36.2)
[2024-11-13 13:40] LABS: ALB/GLOB Ratio 0.9 RATIO (0.9-2.4); AST(SGOT) 197 U/L (<=31); Alanine Aminotransfer ALT/SGPT 336 U/L (<=34); Albumin, Serum 4.8 g/dL (3.5-5.0); Alkaline Phosphatase 459 U/L (35-104); Anion Gap 23 (5-15); BUN 66 mg/dL (4-19); BUN/Creat Ratio 17.9 RATIO (10-20); Chloride 86 mmol/L (98-108); EST Glomerular Filtration Rate 15 (>60); Estimated Creatinine Clearance 22.19 ml/min (50-250); Globulin 5.5 g/dL (2.2-4.2); Glucose 168 mg/dL (70-99); Potassium 4.1 mmol/L (3.3-5.1); Pro- Brain NATRIURETIC PEPTIDE 46 pg/mL (<=450); Protein, Total 10.3 g/dL (5.9-8.4); Sodium Level 126 mmol/L (133-145); Total Bilirubin 1.93 mg/dL (0.00-1.30); Troponin T High Sensitivity 30 ng/L (<=14)
[2024-11-13 13:40] LABS: Bacteria 0 SEEN /hpf (None Seen); Mucous, Urine 0 SEEN /hpf (<or=2+); Red Blood Cells-Urine 0 SEEN /hpf (0-5)
[2024-11-13 13:44] LABS: Lactic Acid 5.8 mmol/L (0.0-2.0)
[2024-11-13 13:46] LABS: Color, Urine Yellow (Yellow); Glucose, Dipstick Normal (Normal); Ketone-Dipstick Negative (Negative); Leukocyte Esterase-Dipstick Negative /ul (Negative); Nitrite-Dipstick Negative (Negative); Occult Blood-Urine Negative /ul (Negative); Protein-Dipstick 30 mg/dl (Negative); Specific Gravity, Urine 1.025 (1.002-1.030); Urine Bilirubin Dipstick Negative (Negative); Urine Clarity Clear (Clear); Urine Urobilinogen Normal (Normal)
[2024-11-13] MEDS: Piperacil/Tazobactam 4.5 GM in 0.9% Normal Saline (100mL MB+) 100 ML IV (13:53)
[2024-11-13 13:54] LABS: Hyaline Cast 10-25 SEEN /lpf (0-5); Squamous Epithelial Cells - UA 0-5 SEEN /hpf (5-10); White Blood Cells 0-5 SEEN /hpf (0-5)
[2024-11-13 14:03] LABS: Differential Indicated SCAN CRITERIA MET
[2024-11-13 14:08] LABS: Platelet Estimate MKD INC (ADEQ)
--- NOTE | 2024-11-13 14:13 | RAD_ITS ---
PROCEDURE: CHEST PA AND LATERAL 11/13/2024 REASON FOR EXAM: SHORTNESS OF BREATH TECHNIQUE: Frontal and lateral views of the chest. COMPARISON: Comparison is made with prior study dated July 30, 2024. FINDINGS: Hardware: EKG electrodes are seen. Heart: The heart is not enlarged. The lungs are clear. Mediastinum: The mediastinal contour is unremarkable. Lungs: The lungs are clear. Bones: The bones are unremarkable. RAD/Chest PA and Lateral IMPRESSION: NO ACUTE FINDINGS. Reading Location: [place] [id number]
[2024-11-13] MEDS: Vancomycin HCl 2,000 MG in 0.9% Normal Saline (500mL Bag) 500 ML 250 MG IV (14:33)
--- NOTE | 2024-11-13 14:53 | ED.RN ---
Per Dr. Levy, put some betadine on some 4x4 and gauze wrap her foot.
[2024-11-13 15:15] LABS: Troponin T High Sensitivity 20 ng/L (<=14)
--- NOTE | 2024-11-13 15:26 | NURSING ---
THIS RN NOTED REDNESS TO LEFT ARM BELOW IV SITE. PT WITH NO BURNING OR ITCHING. DR KAUFMAN AWARE. ORDERED TO STOP VANCOMYCIN AT THIS TIME
--- NOTE | 2024-11-13 15:30 | RAD_ITS ---
EXAM: XR Left Foot Complete, 3 or More Views CLINICAL INDICATION: TOE AUTOAMPUTATION TECHNIQUE: Frontal, lateral and oblique views of the left foot. COMPARISON: No relevant prior studies available. FINDINGS: BONES/JOINTS: Significant flexion at the 2nd PIP, which limit the evaluation. SOFT TISSUES: Soft tissue swelling without acute fracture. No radiopaque foreign body. RAD/Foot min 3 Views IMPRESSION: 1. Soft tissue swelling without acute fracture. 2. Significant flexion at the 2nd PIP, which limit the evaluation. 3. If symptoms persist, further evaluation with CT is recommended. Reading Location[facility]
[2024-11-13] MEDS: HEPARIN/D5w 25,000 UNITS 25,000 UNITS/250 ML IV.SOLN. 10 UNITS CONT INF (15:37)
[2024-11-13] MEDS: Heparin Injection (Vial) 5,000 UNIT/ML VIAL IV (15:39)
[2024-11-13] MEDS: fentaNYL 100 MCG/2 ML Ampul 25 MCG IV (15:51)
--- NOTE | 2024-11-13 16:22 | HP.PCM.HOS_ITS ---
HPI - General General Date of Admission: 11/13/24 HPI Narrative CHERYL ROSADO, is a 39 F who presents [facility] Medical History Anxiety Borderline personality disorder Bipolar disorder Home Medications ?Medication ?Instructions ?Recorded ?Last Taken ?Type escitalopram oxalate 20 mg tablet 20 mg PO DAILY ASK P CP 04/27/22 06/19/23 History olanzapine 20 mg tablet 20 mg PO QHS ASK PCP 06/20/ 3 06/19/23 History omeprazole 40 mg capsule,delayed 40 mg PO DAILY ASK PC P 06/20/23 06/19/23 History release ferrous sulfate 325 mg (65 mg 325 mg PO DAILY ASK PCP #30 tabs 07/30/24 Unknown Rx iron) tablet potassium chloride 20 mEq 40 meq (2 x 20 mEq) PO DAILY ASK 07/30/24 Unknown Rx tablet,extended release PCP #14 tabs enoxaparin 100 mg/mL subcutaneous mg subcut ASK PCP Unknown History syringe gabapentin 600 mg tablet 600 mg PO TID ASK PCP Unknown History calcium polycarbophil 625 mg 1,250 mg (2 x 625 mg) PO TID #90 11/05/24 Unknown Rx tablet (Fiber (calcium tabs polycarbophil)) diphenoxylate-atropine 2.5 2 tab PO 4X/DAY #120 tabs 0 11/05/24 Unknown Rx mg-0.025 mg tablet loperamide 2 mg capsule 2 mg PO Q6 PRN Diarrhea #0 c aps 11/05/24 Unknown Rx midodrine 5 mg tablet 10 mg (2 x 5 mg) PO TIDCM #9 0 tabs 11/05/24 Unknown Rx Allergy/AdvReac Type Severity Reaction Status Date / Time No Known Allergies Allergy Verified 10/28/24 16:09 Family History (Updated 10/28/24 @ 20:[address] Taras Sue MD) Other Heart disease Surgical History Hx of cholecystectomy H/O section History of carpal tunnel surgery Social History Smoking Status: Former smoker substance use type: does not use Vital Signs Vital Signs Vital Signs: 11/13/24 12:43 11/13/24 13:39 11/13/24 13:39 Temperature 96.6 F L 99.1 F Temperature Source Temporal Core Pulse Rate 121 H 96 94 Respiratory Rate 16 13 17 Respiratory Effort Respiratory Depth Respiratory Pattern Blood Pressure 66/43 L 105/73 105/73 Blood Pressure Mean 50 83 83 Pulse Ox 99 95 97 Oxygen Delivery Method Room Air 11/13/24 14:10 11/13/24 14:11 11/13/24 14:34 Temperature 98.5 F 98.5 F Temperature Source Core Core Pulse Rate 103 H 90 Respiratory Rate 20 H 13 Respiratory Effort Short of Breath Respiratory Depth Normal Respiratory Pattern Normal Blood Pressure 105/73 90/60 Blood Pressure Mean 83 70 Pulse Ox 98 100 Oxygen Delivery Method Room Air Room Air 11/13/24 15:00 11/13/24 15:57 Temperature 98.6 F 98.6 F Temperature Source Core Pulse Rate 86 89 Respiratory Rate 18 18 Respiratory Effort Respiratory Depth Respiratory Pattern Blood Pressure 100/62 95/62 Blood Pressure Mean 74 73 Pulse Ox 98 98 Oxygen Delivery Method Room Air Weight Weight: 83.2 kg Body Mass Index (BMI) 28.7 Results Lab / Micro Data 11/13/24 12:48 11/13/24 12:48 Labs: Laboratory Results - last 24 hr 11/13/24 12:48: WBC 11.4 H, RBC 5.41 H, Hgb 13.2, Hct 41.3, MCV 76.3 L, MCH 24.4 L, MCHC 32.0, RDW Std Deviation 43.6, RDW Coeff of Chris 16.2 H, Plt Count 816 H*, MPV 9.4, Immature Gran % (Auto) 0.500, Neut % (Auto) 69.5, Lymph % (Auto) 20.3, [place] % (Auto) 8.5, Eos % (Auto) 0.5, Baso % (Auto) 0.7, Absolute Neuts (auto) 7.9 H, Absolute Lymphs (auto) 2.31, Nucleated RBC % 0, Diff Path Review October, Platelet Estimate MKD INC, PT 13.9, INR 1.1, APTT 29.6, Sodium 126 L, Potassium 4.1, Chloride 86 L, Carbon Dioxide 17.0 L, Anion Gap 23 H, BUN 66 H, C reatinine 3.70 H, Estim Creat Clear Calc 22.19 L, Est GFR (MDRD) Non-Af 15 L, BUN/Creatinine Ratio 17.9, Glucose 168 H, Lactic Acid 5.8 H*, Calcium 11.0, T otal Bilirubin 1.93 H, AST 197 H, ALT 336 H, Alkaline Phosphatase 459 H, T roponin T High Sens 30 H, NT pro BNP II 46, Total Protein 10.3 H, Albumin 4.8, G lobulin 5.5 H, Albumin/Globulin Ratio 0.9 11/13/24 13:34: Urine Color Yellow, Urine Clarity Clear, Urine pH 5.0, Ur Specific [place] 1.025, Urine Protein 30 H, Urine Glucose (UA) Normal, Urine Ketones Negative, Urine Occult Blood Negative, Urine Nitrite Negative, Urine Bilirubin Negative, Urine Urobilinogen Normal, Ur Leukocyte Esterase Negative, Urine RBC 0 SEEN, Urine WBC 0-5 SEEN, Ur Squamous Epith Cells 0-5 SEEN, Urine Bacteria 0 SEEN, Hyaline Casts 10-25 SEEN, Urine Mucus 0 SEEN 11/13/24 14:35: Troponin T High Sens 20 H D, C-React Prot Ext Range 10.90 H Micro: Microbiology 11/13/24 13:36 Mucosa - Nose SARS-CoV-2, Influenza & RSV (PCR) - Final Imaging Radiology Impression Chest X-Ray 11/13/24 14:13 IMPRESSION: NO ACUTE FINDINGS. Reading Location: [facility] Foot X-Ray 11/13/24 15:30 IMPRESSION: 1. Soft tissue swelling without acute fracture. 2. Significant flexion at the 2nd PIP, which limit the evaluation. 3. If symptoms persist, further evaluation with CT is recommended. Reading Location[facility]
--- NOTE | 2024-11-13 16:22 | PCM.HP.STD ---
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 She reportedly has had multiple admissions for dehydration since her surgery and was recently admitted and discharged from the hospital for the same complaint however on discharge her ostomy output had improved. On arrival to the ED temperature 96.6, heart rate initially 121 with a blood pressure 66/43, respiratory rate 16 with a pulse ox of 99% on room air. Patient sodium 126, bicarb 17 with a gap of 23, BUN 66 with creatinine of 3.70. Patient also with abnormal liver enzymes with total bili of 1.93, AST 197, ALT 336, alk phos 459. Lactic acid 5.8. UA unremarkable. Chest x-ray unremarkable. CRP of 10, x-ray of left foot with soft tissue swelling. Patient does have history of recent ischemic toes secondary to her previous thrombosis and there was concern for gangrene in the ED so patient given broad-spectrum antibiotics and treated for sepsis and given sepsis fluids. ED physician contacted the answering service agent on-call who advised that he will see her in consultation. Also patient's surgeons office (Dr. Alyson Devine [phone]) did contact ED physician for updates, they were comfortable with patient being admitted to our institution for further workup and management of possible sepsis and patient will need to follow closely with them on discharge or if she ultimately would require transfer for ostomy she could be transferred but they did not recommend that at this time and patient would like to be admitted here which I confirmed with patient after giving her the option. Hospitalist contacted for admission. Patient evaluated at bedside and reports that on discharge from the hospital last time she did have improved ostomy output and went home and while she does still have decent output it did not return to how it was when she required multiple admissions. She presented today as she has been feeling lightheaded and shortness of breath specifically when she stands up and on exertion. Patient had been on Lovenox due to her thrombus and was supposed to resume this on discharge but she did not have any at home and did not realize she was supposed to resume this so she has not had any anticoagulation. Patient presently reports being cold (room is very cold) and feeling slowed down but well at rest not having any other specific complaint. Patient has no cough and no shortness of breath outside of exertion, no chest pain, occasionally will get some nausea but this is not a primary complaint, adamantly denies any abdominal pain or change in her ostomy, no changes in urination, reports toes on left foot look awful but they are numb so she does not have any pain in them. Does not note any fever or chills at home. PFSH Medical History Anxiety Bipolar disorder Borderline personality disorder Diarrhea Hx of blood clots Ischemic necrosis of toe Obesity Tobacco use Home Medications ?Medication ?Instructions ?Recorded ?Last Taken ?Type escitalopram oxalate 20 mg tablet 20 mg PO DAILY ASK PCP 04/27/22 06/19/23 History olanzapine 20 mg tablet 20 mg PO QHS ASK PCP 06/20/23 06/19/23 History omeprazole 40 mg capsule,delayed 40 mg PO DAILY ASK PCP 06/20/23 06/19/23 History release ferrous sulfate 325 mg (65 mg 325 mg PO DAILY ASK PCP #30 tabs 07/30/24 Unknown Rx iron) tablet potassium chloride 20 mEq 40 meq (2 x 20 mEq) PO DAILY ASK 07/30/24 Unknown Rx tablet,extended release PCP #14 tabs enoxaparin 100 mg/mL subcutaneous mg subcut ASK PCP 10/28/24 Unknown History syringe gabapentin 600 mg tablet 600 mg PO TID ASK PCP 10/28/24 Unknown History calcium polycarbophil 625 mg 1,250 mg (2 x 625 mg) PO TID #90 11/05/24 Unknown Rx tablet (Fiber (calcium tabs polycarbophil)) diphenoxylate-atropine 2.5 2 tab PO 4X/DAY #120 tabs 11/05/24 Unknown Rx mg-0.025 mg tablet loperamide 2 mg capsule 2 mg PO Q6 PRN Diarrhea #0 caps 11/05/24 Unknown Rx midodrine 5 mg tablet 10 mg (2 x 5 mg) PO TIDCM #90 tabs 11/05/24 Unknown Rx Allergy/AdvReac Type Severity Reaction Status Date / Time No Known Allergies Allergy Verified 10/28/24 16:09 Family History (Updated 10/28/24 @ 20:[address] Taras Sue MD) Other Heart disease Surgical History (Updated 11/13/24 @ 00:01 by Noe Chavira) H/O section History of carpal tunnel surgery History of creation of ostomy Hx of cholecystectomy Social History Smoking Status: Former smoker substance use type: does not use ROS ROS Narrative General: Denies fever/chills HENT: Denies headache, denies stuffy nose, denies sore throat EYES: Denies changes in vision Resp: Denies cough, has some shortness of breath specifically with exertion Cardiac: Denies chest pain GI: Denies abdominal pain, has continued to have ostomy output better than previous, occasionally some nausea : Denies changes in urination Extremity: Denies swelling MSK: Denies weakness but feels just kind of overall unwell Neuro: Has numbness in the left toes Heme: Denies any bleeding or bruising Skin: Denies rashes outside of her left toes Psychiatric: No complaints voiced Vital Signs Vital Signs Vital Signs: 11/13/24 12:43 11/13/24 13:39 11/13/24 13:39 Temperature 96.6 F L 99.1 F Temperature Source Temporal Core Pulse Rate 121 H 96 94 Respiratory Rate 16 13 17 Respiratory Effort Respiratory Depth Respiratory Pattern Blood Pressure 66/43 L 105/73 105/73 Blood Pressure Mean 50 83 83 Pulse Ox 99 95 97 Oxygen Delivery Method Room Air 11/13/24 14:10 11/13/24 14:11 11/13/24 14:34 Temperature 98.5 F 98.5 F Temperature Source Core Core Pulse Rate 103 H 90 Respiratory Rate 20 H 13 Respiratory Effort Short of Breath Respiratory Depth Normal Respiratory Pattern Normal Blood Pressure 105/73 90/60 Blood Pressure Mean 83 70 Pulse Ox 98 100 Oxygen Delivery Method Room Air Room Air 11/13/24 15:00 11/13/24 15:57 Temperature 98.6 F 98.6 F Temperature Source Core Pulse Rate 86 89 Respiratory Rate 18 18 Respiratory Effort Respiratory Depth Respiratory Pattern Blood Pressure 100/62 95/62 Blood Pressure Mean 74 73 Pulse Ox 98 98 Oxygen Delivery Method Room Air Weight Weight: 83.2 kg Body Mass Index (BMI) 28.7 Physical Exam Narrative General: Alert, oriented, does appear to overall feel unwell HEENT: Atraumatic, normocephalic, pale lips Eyes: Anicteric, normal conjunctiva, extraocular movements grossly intact Neck: Supple Respiratory: Clear to auscultation bilaterally, normal respiratory effort Cardiovascular: Regular rate and rhythm GI: Soft, nontender, nondistended Extremities: No pitting edema but does have some erythema on left saavedra and has necrotic left toes which are foul-smelling Musculoskeletal: Moving all extremities Neuro: No overt focal neurological deficits Skin: Left toes necrotic and foul-smelling with 1 digit partially autoamputated, appears to have some erythema on lower saavedra on that left side as well Psych: Cooperative Results Lab / Micro Data 11/13/24 12:48 11/13/24 12:48 Labs: Laboratory Results - last 24 hr 11/13/24 12:48: WBC 11.4 H, RBC 5.41 H, Hgb 13.2, Hct 41.3, MCV 76.3 L, MCH 24.4 L, MCHC 32.0, RDW Std Deviation 43.6, RDW Coeff of Chris 16.2 H, Plt Count 816 H*, MPV 9.4, Immature Gran % (Auto) 0.500, Neut % (Auto) 69.5, Lymph % (Auto) 20.3, [place] % (Auto) 8.5, Eos % (Auto) 0.5, Baso % (Auto) 0.7, Absolute Neuts (auto) 7.9 H, Absolute Lymphs (auto) 2.31, Nucleated RBC % 0, Diff Path Review October, Platelet Estimate MKD INC, PT 13.9, INR 1.1, APTT 29.6, Sodium 126 L, Potassium 4.1, Chloride 86 L, Carbon Dioxide 17.0 L, Anion Gap 23 H, BUN 66 H, Creatinine 3.70 H, Estim Creat Clear Calc 22.19 L, Est GFR (MDRD) Non-Af 15 L, BUN/Creatinine Ratio 17.9, Glucose 168 H, Lactic Acid 5.8 H*, Calcium 11.0, Total Bilirubin 1.93 H, AST 197 H, ALT 336 H, Alkaline Phosphatase 459 H, Troponin T High Sens 30 H, NT pro BNP II 46, Total Protein 10.3 H, Albumin 4.8, Globulin 5.5 H, Albumin/Globulin Ratio 0.9 11/13/24 13:34: Urine Color Yellow, Urine Clarity Clear, Urine pH 5.0, Ur Specific Emerson 1.025, Urine Protein 30 H, Urine Glucose (UA) Normal, Urine Ketones Negative, Urine Occult Blood Negative, Urine Nitrite Negative, Urine Bilirubin Negative, Urine Urobilinogen Normal, Ur Leukocyte Esterase Negative, Urine RBC 0 SEEN, Urine WBC 0-5 SEEN, Ur Squamous Epith Cells 0-5 SEEN, Urine Bacteria 0 SEEN, Hyaline Casts 10-25 SEEN, Urine Mucus 0 SEEN 11/13/24 14:35: Troponin T High Sens 20 H D, C-React Prot Ext Range 10.90 H Micro: Microbiology 11/13/24 13:36 Mucosa - Nose SARS-CoV-2, Influenza & RSV (PCR) - Final Imaging Radiology Impression Chest X-Ray 11/13/24 14:13 IMPRESSION: NO ACUTE FINDINGS. [facility] 11/13/24 15:30 IMPRESSION: 1. Soft tissue swelling without acute fracture. 2. Significant flexion at the 2nd PIP, which limit the evaluation. 3. If symptoms persist, further evaluation with CT is recommended. Reading Location: [facility] Assessment & Plan Assessment/Plan (1) Sepsis: (2) Ischemic necrosis of toe: (3) Acute kidney injury: PLAN: Plan # Sepsis suspect secondary to ?toe infection from ischemic toes - Monitor on telemetry in ICU -Patient with elevated white blood cell count, lactic acid of 5.8 with an JONATAN, elevated bilirubin, and hypotension on presentation - Bedrest for today given patient's hypotension and symptoms upon standing while she continues fluid resuscitation antibiotics -Patient given sepsis fluids in the ED of 2500 cc -CRP 10.9, minimal elevation -X-ray of left foot shows soft tissue swelling in flexion at second PIP (which is toe that is partially autoamputated) - Patient with no other focal or localizing complaints that would suggest other nidus of infection at this time - UA does not appear infected - Chest x-ray unremarkable -Patient pancultured -Continue broad-spectrum antibiotics -Patient did have a possible localized reaction to vancomycin so we will give Zosyn and linezolid -Given linezolid will hold lexapro temporarily -Podiatry consult -Continue IV fluid #Acute on chronic hypotension - Patient was discharged on midodrine given her chronic hypotension during her last admission, patient did come in lower than baseline with systolic in the 60s, at time of evaluation systolic 90s to 100s - Continue home midodrine fluid resuscitation in the ICU # JONATAN -Patient presented with BUN of 66 and creatinine of 3.70 up from a baseline of around 0.95. -Suspect secondary to dehydration and possible sepsis -IV fluids # History of high output ostomy -Patient likely with recurrent dehydration +/- sepsis - Patient but does report the previous medications discharge did improve ostomy output which ones more into the 3 of this may be mixed picture -IV fluids -Resume home medications -May need to consider GI consult # History of mesenteric ischemia from thrombus -Patient was out of her Lovenox at home so she did not continue this on discharge -Patient to be started on heparin drip, will need resumed on anticoagulation at discharge #Abnormal liver function tests - total bili of 1.93, AST 197, ALT 336, alk phos 459 -Possibly due to ischemia from hypovolemia and dehydration -No abdominal pain or evidence suggesting intra-abdominal pathology at this time #HAGMA suspect 2/2 Lactic acidosis -Likely secondary to the above -IVF -Correct underlying problem #Elevated troponin - Suspect secondary to patient's hypotension on arrival - Think this is demand and not the primary problem #Hx bipolar disorder -Given linezolid will hold lexapro temporarily -Otherwise continue #DVT ppx: Patient to be on heparin drip Ashley Rosen MD Time spent in the patient's overall evaluation, decision-making process, review of diagnostic data, adjustment of management, discussion with other providers, nursing and ancillary staff involved in patient's care documentation, 80 Minutes Sepsis Attestation Sepsis Alert: Yes Sepsis Attestation: Agree w/Sepsis Date exam was performed: 11/13/24 Time exam was performed: 15:20 Possible Source of Sepsis: Skin/soft tissue Sepsis Organ Dysfunction Criteria Present: SBP < 90 mmHg or MAP < 65 mmHg, Creatinine > 2.0 mg/dL, Lactic Acid > 2 mmol/L and Serum CO2 < 20 mmol/L (on BMP) Fluid Resuscitation Fluid resuscitation indicated?: Yes Fluid Resuscitation ordered: 30 ml/kg fluid bolus ordered Amount of fluid ordered: 2,500 Sepsis Note Date exam was performed: 11/13/24 Time exam was performed: 16:54 Sepsis Attestation: Sepsis re-evaluation was performed Response to fluids: Fluid responsive hypotension Charges/Coding Visit Charges Inpatient E&M: 58660 Init Hosp L3
[2024-11-13 17:07] LABS: Reflex Lactate? Y
[2024-11-13 17:30] LABS: Lactic Acid 1.6 mmol/L (0.0-2.0)
[2024-11-13 17:44] LABS: Erythrocyte Sedimentation Rate 87 mm/hr (0-30)
[2024-11-13] MEDS: 0.9% Normal Saline (1000mL) 1,000 ML 150 ML IV (18:34)
[2024-11-13] MEDS: Midodrine HCl 5 MG Tablet 10 MG PO (18:34)
[2024-11-13] MEDS: Diphenoxylate/Atrop 1 Tablet 2 TABLET PO ×2 (18:34→21:38)
[2024-11-13] MEDS: Linezolid 600 MG 600 MG/300 ML BAG 200 MG IV (21:25)
[2024-11-13] MEDS: OLANZapine 10 MG Tablet 20 MG PO (21:25)
[2024-11-13] MEDS: Piperacil/Tazobactam 3.375 GM in 0.9% Normal Saline (50mL MB+) 50 ML IV (21:38)
[2024-11-13] MEDS: Gabapentin 600 MG Tablet PO (21:38)
[2024-11-13 22:16] LABS: Partial Thromboplast Time 73.1 Seconds (24.1-36.2)
[2024-11-14] VITALS (17 sets, daily range): BP systolic 82–103; BP diastolic 51–79; PULSE 72–87; RESP 14–20; TEMP 36.2–36.8; O2SAT 96–100; BMI 29.9; BMI 29.8
[2024-11-14] MEDS: 0.9% Normal Saline (1000mL) 1,000 ML 150 ML IV ×4 (01:16→20:29)
[2024-11-14 04:57] LABS: Absolute Lymphocyte Count 1.95 X10^3/uL (0.83-4.51); Absolute Neutrophil Count 3.7 X10^3/uL (2.0-7.7); Basophil# 0.05 X10^3/uL; Basophil% 0.8 % (0-1); Eosinophil# 0.13 X10^3/uL; Eosinophils% 2.1 % (0-5); Hematocrit 28.9 % (37-47); Hemoglobin 9.3 g/dL (12.0-15.0); Lymphocyte # 1.95 X10^3/ul (0.83-4.51); Lymphocyte % 30.8 % (19-41); Mean Corp Hgb Conc 32.2 g/dL (32-36); Mean Corpuscular Hgb 24.7 pg (27.0-32.0); Mean Corpuscular Volume 76.9 fL (81-99); Mean Platelet Vol. 8.9 fl (6.2-12.0); Monocyte# 0.47 X10^3/uL; Monocyte% 7.4 % (0-10); NRBC Flagged by Analyzer 0 % (0-5); Neutrophil # 3.71 X10^3/uL (2.7-7.7); Neutrophil % 58.6 % (47-70); Platelet Count 393 K/mm3 (150-450); RBC Distribution Width CV 15.8 % (11.6-14.6); Red Blood Count 3.76 M/mm3 (4.2-5.4); White Blood Count 6.3 K/mm3 (4.4-11.0)
[2024-11-14 05:13] LABS: Partial Thromboplast Time 56.1 Seconds (24.1-36.2)
[2024-11-14] MEDS: Piperacil/Tazobactam 3.375 GM in 0.9% Normal Saline (50mL MB+) 50 ML IV ×3 (06:16→23:13)
[2024-11-14] MEDS: Gabapentin 600 MG Tablet PO ×3 (06:17→20:28)
[2024-11-14 06:22] LABS: AST(SGOT) 102 U/L (<=31); Alanine Aminotransfer ALT/SGPT 205 U/L (<=34); Albumin, Serum 3.4 g/dL (3.5-5.0); Alkaline Phosphatase 273 U/L (35-104); Anion Gap 14 (5-15); BUN 40 mg/dL (4-19); BUN/Creat Ratio 18.6 RATIO (10-20); Calcium,Total 8.8 mg/dL (7.6-11.0); Carbon Dioxide 17.5 mmol/L (21.0-32.0); Chloride 100 mmol/L (98-108); Creatinine, Serum 2.17 mg/dL (0.70-1.20); EST Glomerular Filtration Rate 29 (>60); Estimated Creatinine Clearance 38.54 ml/min (50-250); Globulin 3.6 g/dL (2.2-4.2); Glucose 146 mg/dL (70-99); Potassium 3.4 mmol/L (3.3-5.1); Sodium Level 131 mmol/L (133-145)
[2024-11-14] MEDS: Potassium Chloride Oral Tablet 20 MEQ 40 MEQ PO (08:04)
[2024-11-14] MEDS: Pantoprazole Sodium 40 MG Tablet PO (08:05)
[2024-11-14] MEDS: Midodrine HCl 5 MG Tablet 10 MG PO ×3 (08:05→17:07)
[2024-11-14] MEDS: Diphenoxylate/Atrop 1 Tablet 2 TABLET PO ×4 (08:08→20:28)
--- NOTE | 2024-11-14 09:39 | ART_ITS ---
Reason For Study Reason For Study: Ulcer Procedure A bilateral lower extremity continuous wave Doppler with analog waveform analysis,segmental pressures,and ankle brachial indexes without exercise. Left Segmental Pressures Left brachial= 100mmHg. Left dorsalis pedis artery = 107mmHg. The left dorsalis pedis waveforms are triphasic. Right Segmental Pressures Right posterior tibial artery = 108mmHg. Right dorsalis pedis artery = 107mmHg. Right digit = 66 mmHg. The right dorsalis pedis waveforms are triphasic. The right posterior tibial artery waveforms are triphasic. Indices The right ankle brachial index by the dorsalis pedis is 1.07. The right ankle brachial index by the posterior tibial artery is 1.08. The right digital-brachial index is 0.66. The left ankle brachial index by the dorsalis pedis is 1.07. VL/Lower Ext Art Exam w/o Exercis Interpretation Summary Right KASSIDY 1.08, normal. Doppler/PVR waveforms of the right leg normal at rest. TBI diminished, pedal/digit disease vs spasm. Left KASSIDY 1.07, normal. Doppler/PVR waveforms of the left leg normal at rest. TB I diminished, pedal/digit disease vs spasm. Ordering Physician: Ailyn Robert Referring Physician: Fredrick Boland Performed By: Jackelyn Garay RVT
--- NOTE | 2024-11-14 09:39 | CON.PCM.SX_ITS ---
Assessment & Plan Assessment/Plan (1) Ischemic necrosis of toe: (2) Aortic mural thrombus: PLAN: Plan She is s/p thromboembolectomy of bilateral tibial arteries with embolic source the thoracic aortic mural thrombus. Her current ischemic toe injuries are secondary to the initial ischemic insult and have continued to demarcate with time do not suspect any ongoing ischemia/significant atherosclerotic disease. Due to her JONATAN, did not obtain CTA. Did obtain LEAS which confirmed normal bilateral ABIs and triphasic waveforms throughout. She has sufficient inflow to expect to heal any podiatry interventions. OK to hold heparin as needed for podiatry intervention, restart postoperatively and recommend continued Lovenox at discharge. No plans for further intervention from vascular standpoint, encourage continued outpatient follow-up with vascular/general/hematology for ongoing management. HPI Consult Data Date of Consult: 11/14/24 HPI Narrative HPI Narrative: CHERYL ROSADO, is a 39 F who presented to the [facility] ER with lightheadedness and SOB, hypotensive and was admitted with concern for sepsis as well as dehydration/JONATAN. She has dry gangrene to bilateral toes for which we are consulted. She has significant recent medical history. I reviewed records from [facility] available in [facility]. She had presented to 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 She was transferred to [facility] where she had repeat CTA again showing SMA occlusion but now also L internal iliac artery occlusion and bilateral tibial artery occlusions. She was taken to the OR for joint emergent intervention with general surgery and vascular surgery 08/20/24 ; she had ex-lap revealing significant small bowel necrosis with only proximal 50cm viable and significant proximal colon necrosis requiring bowel resection and then abdominal incision left open; she then also had bilateral thromboembolectomy of the bilateral AT, PT, peroneal arteries, repair of popliteal and tibial arteriotomies, and 4 compartment fasciotomies which were left open bilaterally. No SMA intervention was performed as it was felt that she'd had irreversible damage and intervention would not offer any further improvement. 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 On 08/23/26, she had primary closure of her fasciotomy sites. During her admission, she did have a hypercoagulable workup which had several positive tests but noted could be acute phase reactants and plan was for repeat testing on an outpatient basis with hematology. She was discharged on Lovenox with plan for this to be continued. She has also had outpatient follow-up arranged with general surgery, vascular surgery, and podiatry/wound care at [facility] main though current hospitalization has caused her to miss these appointments. She reports that her current toe wounds have all been present since this initial hospitalization in July. She states that these areas have continued to worse, but no new wounds have developed. She reports she is borderline diabetic. No prior similar wounds by report. She denies any claudication, rest/nocturnal pain in her legs; she does have persistent numbness in her toes again stable from initial injury. She'd had other recent hospitalization here for dehydration/JONATAN from 10/28/24-11/05/24, she reports she ran out of lovenox after this so had not been taking it for the last two weeks or so. [facility] Medical History (Updated 11/13/24 @ 16:[address] Ashley Rosen MD) Ischemic necrosis of toe Hx of blood clots Diarrhea Tobacco use Obesity Anxiety Borderline personality disorder Bipolar disorder Home Medications ?Medication ?Instructions ?Recorded ?Last Taken ?Type escitalopram oxalate 20 mg tablet 20 mg PO DAILY ASK P CP 04/27/22 06/19/23 History olanzapine 20 mg tablet 20 mg PO QHS ASK PCP 06/20/ 3 06/19/23 History omeprazole 40 mg capsule,delayed 40 mg PO DAILY ASK PC P 06/20/23 06/19/23 History release ferrous sulfate 325 mg (65 mg 325 mg PO DAILY ASK PCP #30 tabs 07/30/24 Unknown Rx iron) tablet potassium chloride 20 mEq 40 meq (2 x 20 mEq) PO DAILY ASK 07/30/24 Unknown Rx tablet,extended release PCP #14 tabs enoxaparin 100 mg/mL subcutaneous mg subcut ASK PCP Unknown History syringe gabapentin 600 mg tablet 600 mg PO TID ASK PCP Unknown History calcium polycarbophil 625 mg 1,250 mg (2 x 625 mg) PO TID #90 11/05/24 Unknown Rx tablet (Fiber (calcium tabs polycarbophil)) diphenoxylate-atropine 2.5 2 tab PO 4X/DAY #120 tabs 0 11/05/24 Unknown Rx mg-0.025 mg tablet loperamide 2 mg capsule 2 mg PO Q6 PRN Diarrhea #0 c aps 11/05/24 Unknown Rx midodrine 5 mg tablet 10 mg (2 x 5 mg) PO TIDCM #9 0 tabs 11/05/24 Unknown Rx Allergy/AdvReac Type Severity Reaction Status Date / Time No Known Allergies Allergy Verified 10/28/24 16:09 Family History (Updated 10/28/24 @ 20:[address] Taras Sue MD) Other Heart disease Surgical History (Updated 11/13/24 @ 00:01 by Noe Chavira) History of creation of ostomy Hx of cholecystectomy H/O section History of carpal tunnel surgery Social History Smoking Status: Former smoker substance use type: does not use Physical Exam Const alert, oriented x3 and no apparent distress General Appearance: cooperative and comfortable HEENT normocephalic, head/scalp atraumatic, hearing grossly normal bilaterally, external ears normal and external nose normal Eyes EOMs intact bilaterally General Eye: normal appearance of both eyes Neck General: normal visual inspection Resp normal respiratory effort Effort and Inspection: able to speak in complete sentences; Negative for labored, grunting or stridor Cardio regular rate and regular rhythm Extremity Extremity Narrative: R 2nd toe lateral tip with dry gangrene. Wound dressings in place to the L foot, minimally disturbed for exam. L 1st-4th toes with dry gangrene. Associated foul odor. No significant erythema or drainage noted. By doppler, DP and PT doppler signals triphasic. R foot is appropriately warm and pink, visible portion of L foot is appropriately warm and pink other than toes as noted above. Bilateral calves with well-healed longitudinal incisions consistent with hx of fasciotomy/thromboembolectomy. No excess swelling/warmth/redness/tenderness. Neuro oriented x3, moves all extremities and no focal motor deficits Speech: speech normal Psych mental status grossly normal Appearance: grossly normal Attitude: calm and engaged Activity / Motor Behavior: appropriate eye contact Speech: normal speech Lab / Micro Data 11/14/24 04:45 11/14/24 04:45 Labs: Laboratory Results - last 24 hr 11/13/24 12:48: WBC 11.4 H, RBC 5.41 H, Hgb 13.2, Hct 41.3, MCV 76.3 L, MCH 24.4 L, MCHC 32.0, RDW Std Deviation 43.6, RDW Coeff of Chris 16.2 H, Plt Count 816 H*, MPV 9.4, Immature Gran % (Auto) 0.500, Neut % (Auto) 69.5, Lymph % (Auto) 20.3, [place] % (Auto) 8.5, Eos % (Auto) 0.5, Baso % (Auto) 0.7, Absolute Neuts (auto) 7.9 H, Absolute Lymphs (auto) 2.31, Nucleated RBC % 0, Diff Path Review October, Platelet Estimate MKD INC, ESR 87 H, PT 13.9, INR 1.1, APTT 29.6, Sodium 126 L, Potassium 4.1, Chloride 86 L, Carbon Dioxide 17.0 L, Anion Gap 23 H, BUN 66 H, Creatinine 3.70 H, Estim Creat Clear Calc 22.19 L, Est GFR (MDRD) Non-Af 15 L, BUN/Creatinine Ratio 17.9, Glucose 168 H, Lactic Acid 5.8 H*, Calcium 11.0, Total Bilirubin 1.93 H, AST 197 H, ALT 336 H, Alkaline Phosphatase 459 H, Troponin T High Sens 30 H, NT pro BNP II 46, Total Protein 10.3 H, Albumin 4.8, Globulin 5.5 H, Albumin/Globulin Ratio 0.9 11/13/24 13:34: Urine Color Yellow, Urine Clarity Clear, Urine pH 5.0, Ur Specific [place] 1.025, Urine Protein 30 H, Urine Glucose (UA) Normal, Urine Ketones Negative, Urine Occult Blood Negative, Urine Nitrite Negative, Urine Bilirubin Negative, Urine Urobilinogen Normal, Ur Leukocyte Esterase Negative, Urine RBC 0 SEEN, Urine WBC 0-5 SEEN, Ur Squamous Epith Cells 0-5 SEEN, Urine Bacteria 0 SEEN, Hyaline Casts 10-25 SEEN, Urine Mucus 0 SEEN 11/13/24 14:35: Troponin T High Sens 20 H D, C-React Prot Ext Range 10.90 H 11/13/24 16:52: Lactic Acid 1.6 11/13/24 21:29: APTT 73.1 H 11/14/24 04:45: WBC 6.3, RBC 3.76 L, Hgb 9.3 L, Hct 28.9 L, MCV 76.9 L, MCH 24.7 L, MCHC 32.2, RDW Std Deviation 43.0, RDW Coeff of Chris 15.8 H, Plt Count 393, MPV 8.9, Immature Gran % (Auto) 0.300, Neut % (Auto) 58.6, Lymph % (Auto) 30.8, [place] % (Auto) 7.4, Eos % (Auto) 2.1, Baso % (Auto) 0.8, Absolute Neuts (auto) 3.7, Absolute Lymphs (auto) 1.95, Nucleated RBC % 0, APTT 56.1 H, Sodium 131 L, Potassium 3.4, Chloride 100, Carbon Dioxide 17.5 L, Anion Gap 14, BUN 40 H, C reatinine 2.17 H, Estim Creat Clear Calc 38.54 L, Est GFR (MDRD) Non-Af 29 L, BUN/Creatinine Ratio 18.6, Glucose 146 H, Calcium 8.8, Total Bilirubin 1.20, AST 102 H, ALT 205 H, Alkaline Phosphatase 273 H, Total Protein 7.0, Albumin 3.4 L, Globulin 3.6, Albumin/Globulin Ratio 1.0 Micro: Microbiology 11/13/24 13:34 Urine Catheter - Catheter Urine Culture - Preliminary Culture exhibits no growth. 11/13/24 13:36 Mucosa - Nose SARS-CoV-2, Influenza & RSV (PCR) - Final Imaging Radiology Impression Chest X-Ray 11/13/24 14:13 IMPRESSION: NO ACUTE FINDINGS. Reading Location: [facility]1 Foot X-Ray 11/13/24 15:30 IMPRESSION: 1. Soft tissue swelling without acute fracture. 2. Significant flexion at the 2nd PIP, which limit the evaluation. 3. If symptoms persist, further evaluation with CT is recommended. Reading Location: [facility] Charges/Coding Visit Charges Inpatient E&M: 68257 Init Hosp L2
--- NOTE | 2024-11-14 10:28 | CASEMGMT ---
Readmission note: Index: 10/28/24-11/05/24. Dx: JONATAN with High Ostomy Output Current: 11/13/24. Dx: Sepsis and Dehydration. Gangrenous Toe wounds. Per chart review, the patient had a new ileostomy placed in July. Pt has toe wounds that require medical attention and dressing changes. From the index admission, the pt discharged to her parents' home for increased medical support. The pt also follows at the [facility]. The pt also follows with podiatry out of [facility]. NATHANAEL SHEIKH to pt room at this time. Pt is A&Ox4 and is resting comfortably in bed and is calm. Pt states that her parents were helping with her wound dressing changes at home. Pt states that she did not have time to follow up at the [facility] due to this current admission. Pt states that her f/u appt with her strap setter from [facility] was scheduled for today. Pt states that she did not have time to follow up with her PCP between admissions. Pt states that she was able to get her new prescriptions and take her medications as ordered. Pt reports that she was able to care for her ileostomy by herself with no issues and that she has enough supplies. Pt re-presents to [facility] with SOB and lightheadedness. Per ICU rounds, pt is on a heparin drip. Podiatry, as well as the vascular team, are consulted for potential intervention. PT/OT evaluations are ordered and to see once appropriate. At this time, the pt states that she plans to return to her parents home at the time of DC. Pt states that she plans to continue care through the [facility] and denies HH or OP therapy needs. Pt denies further questions, concerns, or needs at this time. CM to follow. Maria Elena OLIVER RN, CM
[2024-11-14] MEDS: Linezolid 600 MG 600 MG/300 ML BAG 200 MG IV ×2 (10:44→20:51)
--- NOTE | 2024-11-14 11:09 | CASEMGMT ---
This RN CM was notified that the pt's CM through [facility] was trying to reach out to this RN CM. TC to Sandra @ [phone].?Sandra updated with the pt's status and plan of care. Sandra states that the pt is not active with any services but will be following for DC planning as needed.
[2024-11-14] MEDS: Ferrous Sulfate 325 MG Tablet PO (11:26)
[2024-11-14 11:29] LABS: Partial Thromboplast Time 55.3 Seconds (24.1-36.2)
--- NOTE | 2024-11-14 12:27 | CON.PCM_ITS ---
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 Up to this point had been stable. Now she is septic but already improbing on IV abx. will need amputation of all digits left foot and debridement of heel ischemic wound. I discussed this with her at length and she fully understands. I'll contact surgery and see when we can do this. she is currently on Heparin and will need to be held day of surgery. the plan would then be to discharge her to home on lovenox and have her follow up in my office once we are sure she is stable. HPI Consult Data Date of Consult: 11/14/24 HPI Narrative Reason for Consultation: gangrene left foot HPI Narrative: CHERYL ROSADO, is a 39 F who presents [facility] Medical History (Updated 11/13/24 @ 16:[address] Ashley Rosen MD) Ischemic necrosis of toe Hx of blood clots Diarrhea Tobacco use Obesity Anxiety Borderline personality disorder Bipolar disorder Home Medications ?Medication ?Instructions ?Recorded ?Last Taken ?Type escitalopram oxalate 20 mg tablet 20 mg PO DAILY ASK P CP 04/27/22 06/19/23 History olanzapine 20 mg tablet 20 mg PO QHS ASK PCP 3 06/19/23 History omeprazole 40 mg capsule,delayed 40 mg PO DAILY ASK PC P 06/20/23 06/19/23 History release ferrous sulfate 325 mg (65 mg 325 mg PO DAILY ASK PCP #30 tabs 07/30/24 Unknown Rx iron) tablet potassium chloride 20 mEq 40 meq (2 x 20 mEq) PO DAILY ASK 07/30/24 Unknown Rx tablet,extended release PCP #14 tabs enoxaparin 100 mg/mL subcutaneous mg subcut ASK PCP Unknown History syringe gabapentin 600 mg tablet 600 mg PO TID ASK PCP Unknown History calcium polycarbophil 625 mg 1,250 mg (2 x 625 mg) PO TID #90 11/05/24 Unknown Rx tablet (Fiber (calcium tabs polycarbophil)) diphenoxylate-atropine 2.5 2 tab PO 4X/DAY #120 tabs 0 11/05/24 Unknown Rx mg-0.025 mg tablet loperamide 2 mg capsule 2 mg PO Q6 PRN Diarrhea #0 c aps 11/05/24 Unknown Rx midodrine 5 mg tablet 10 mg (2 x 5 mg) PO TIDCM #9 0 tabs 11/05/24 Unknown Rx Allergy/AdvReac Type Severity Reaction Status Date / Time No Known Allergies Allergy Verified 10/28/24 16:09 Family History (Updated 10/28/24 @ 20:[address] Taras Sue MD) Other Heart disease Surgical History (Updated 11/13/24 @ 00:01 by Noe Chavira) History of creation of ostomy Hx of cholecystectomy H/O section History of carpal tunnel surgery Social History Smoking Status: Former smoker substance use type: does not use Physical Exam Const oriented x3 Constitutional Narrative: pt had dizziness and sob that has resolved since hospitalization General Appearance: cooperative and well developed Skin Wounds: wounds noted Wound Narrative: plantar medial heel with ischemic area about 5cm oblong, no fluctuance but soft underneath, no surrounding redness or purulence. all toes except 5th toe have intermediate accountant ischemia and dry gangrene that has become softer and odorous. the skin around the area and entire foot is perfectly healthy, soft, pink, warm to palpate, with good color and turgor. Left foot. Lab / Micro Data 11/14/24 04:45 11/14/24 04:45 Labs: Laboratory Results - last 24 hr 11/13/24 12:48: WBC 11.4 H, RBC 5.41 H, Hgb 13.2, Hct 41.3, MCV 76.3 L, MCH 24.4 L, MCHC 32.0, RDW Std Deviation 43.6, RDW Coeff of Chris 16.2 H, Plt Count 816 H*, MPV 9.4, Immature Gran % (Auto) 0.500, Neut % (Auto) 69.5, Lymph % (Auto) 20.3, [place] % (Auto) 8.5, Eos % (Auto) 0.5, Baso % (Auto) 0.7, Absolute Neuts (auto) 7.9 H, Absolute Lymphs (auto) 2.31, Nucleated RBC % 0, Diff Path Review October, Platelet Estimate MKD INC, ESR 87 H, PT 13.9, INR 1.1, APTT 29.6, Sodium 126 L, Potassium 4.1, Chloride 86 L, Carbon Dioxide 17.0 L, Anion Gap 23 H, BUN 66 H, Creatinine 3.70 H, Estim Creat Clear Calc 22.19 L, Est GFR (MDRD) Non-Af 15 L, BUN/Creatinine Ratio 17.9, Glucose 168 H, Lactic Acid 5.8 H*, Calcium 11.0, Total Bilirubin 1.93 H, AST 197 H, ALT 336 H, Alkaline Phosphatase 459 H, Troponin T High Sens 30 H, NT pro BNP II 46, Total Protein 10.3 H, Albumin 4.8, Globulin 5.5 H, Albumin/Globulin Ratio 0.9 11/13/24 13:34: Urine Color Yellow, Urine Clarity Clear, Urine pH 5.0, Ur Specific [place] 1.025, Urine Protein 30 H, Urine Glucose (UA) Normal, Urine Ketones Negative, Urine Occult Blood Negative, Urine Nitrite Negative, Urine Bilirubin Negative, Urine Urobilinogen Normal, Ur Leukocyte Esterase Negative, Urine RBC 0 SEEN, Urine WBC 0-5 SEEN, Ur Squamous Epith Cells 0-5 SEEN, Urine Bacteria 0 SEEN, Hyaline Casts 10-25 SEEN, Urine Mucus 0 SEEN 11/13/24 14:35: Troponin T High Sens 20 H D, C-React Prot Ext Range 10.90 H 11/13/24 16:52: Lactic Acid 1.6 11/13/24 21:29: APTT 73.1 H 11/14/24 04:45: WBC 6.3, RBC 3.76 L, Hgb 9.3 L, Hct 28.9 L, MCV 76.9 L, MCH 24.7 L, MCHC 32.2, RDW Std Deviation 43.0, RDW Coeff of Chris 15.8 H, Plt Count 393, MPV 8.9, Immature Gran % (Auto) 0.300, Neut % (Auto) 58.6, Lymph % (Auto) 30.8, [place] % (Auto) 7.4, Eos % (Auto) 2.1, Baso % (Auto) 0.8, Absolute Neuts (auto) 3.7, Absolute Lymphs (auto) 1.95, Nucleated RBC % 0, APTT 56.1 H, Sodium 131 L, Potassium 3.4, Chloride 100, Carbon Dioxide 17.5 L, Anion Gap 14, BUN 40 H, C reatinine 2.17 H, Estim Creat Clear Calc 38.54 L, Est GFR (MDRD) Non-Af 29 L, BUN/Creatinine Ratio 18.6, Glucose 146 H, Calcium 8.8, Total Bilirubin 1.20, AST 102 H, ALT 205 H, Alkaline Phosphatase 273 H, Total Protein 7.0, Albumin 3.4 L, Globulin 3.6, Albumin/Globulin Ratio 1.0 11/14/24 11:10: APTT 55.3 H Micro: Microbiology 11/13/24 13:34 Urine Catheter - Catheter Urine Culture - Preliminary Culture exhibits no growth. 11/13/24 13:36 Mucosa - Nose SARS-CoV-2, Influenza & RSV (PCR) - Final Imaging Radiology Impression Chest X-Ray 11/13/24 14:13 IMPRESSION: NO ACUTE FINDINGS. Reading Location: [facility] Foot X-Ray 11/13/24 15:30 IMPRESSION: 1. Soft tissue swelling without acute fracture. 2. Significant flexion at the 2nd PIP, which limit the evaluation. 3. If symptoms persist, further evaluation with CT is recommended. Reading [facility]
--- NOTE | 2024-11-14 13:23 | PCM.PN.HOSP ---
Reason for Visit Reason for Visit: Diagnoses Sepsis, unspecified organism (11/13/24) Gangrene, not elsewhere classified (11/13/24) Acute kidney failure, unspecified (11/13/24) Subjective Subjective Patient seen and examined today, she was admitted yesterday for sepsis related to a left foot infection and gangrene. Patient is being seen by podiatry, I have also written a consult for vascular surgery to see the patient. 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 She spent some time in a prison facility but according the patient she was not discharged home on any antiplatelet medications or anticoagulation. She is following with wound care in [place] due to gangrene on the toes of her left foot and an additional area on her right foot which is not large. Podiatry saw the patient today and she is scheduled to undergo a left forefoot amputation tomorrow morning, patient's heparin will be stopped at 6 AM Objective Data Objective Data Vital Signs: Vital Signs Temp Pulse Resp BP Pulse Ox O2 Del Method 97.3 F L 78 14 101/71 100 Room Air 11/14/24 11:00 11/14/24 13:00 11/14/24 13:00 11/14/24 13:00 11/14/24 13:00 11/14/24 13:00 Oxygen Delivery Method Room Air Weight: 86.5 kg Body Mass Index (BMI) 29.9 Intake & Output: Intake and Output for Last 24 Hours 11/12/24 11/13/24 11/14/24 23:59 23:59 23:59 Intake Total 3662.5 / 3662.5 3180 / 3180 Output Total 2049 / 2049 5450 / 5450 Balance 1612.5 / 1612.5 -2270 / -2270 Lab / Micro Data 11/14/24 04:45 11/14/24 04:45 Labs: Laboratory Results - last 24 hr 11/13/24 12:48: WBC 11.4 H, RBC 5.41 H, Hgb 13.2, Hct 41.3, MCV 76.3 L, MCH 24.4 L, MCHC 32.0, RDW Std Deviation 43.6, RDW Coeff of Chris 16.2 H, Plt Count 816 H*, MPV 9.4, Immature Gran % (Auto) 0.500, Neut % (Auto) 69.5, Lymph % (Auto) 20.3, Hudspeth % (Auto) 8.5, Eos % (Auto) 0.5, Baso % (Auto) 0.7, Absolute Neuts (auto) 7.9 H, Absolute Lymphs (auto) 2.31, Nucleated RBC % 0, Diff Path Review October, Platelet Estimate MKD INC, ESR 87 H, PT 13.9, INR 1.1, APTT 29.6, Sodium 126 L, Potassium 4.1, Chloride 86 L, Carbon Dioxide 17.0 L, Anion Gap 23 H, BUN 66 H, Creatinine 3.70 H, Estim Creat Clear Calc 22.19 L, Est GFR (MDRD) Non-Af 15 L, BUN/Creatinine Ratio 17.9, Glucose 168 H, Lactic Acid 5.8 H*, Calcium 11.0, Total Bilirubin 1.93 H, AST 197 H, ALT 336 H, Alkaline Phosphatase 459 H, Troponin T High Sens 30 H, NT pro BNP II 46, Total Protein 10.3 H, Albumin 4.8, Globulin 5.5 H, Albumin/Globulin Ratio 0.9 11/13/24 13:34: Urine Color Yellow, Urine Clarity Clear, Urine pH 5.0, Ur Specific [place] 1.025, Urine Protein 30 H, Urine Glucose (UA) Normal, Urine Ketones Negative, Urine Occult Blood Negative, Urine Nitrite Negative, Urine Bilirubin Negative, Urine Urobilinogen Normal, Ur Leukocyte Esterase Negative, Urine RBC 0 SEEN, Urine WBC 0-5 SEEN, Ur Squamous Epith Cells 0-5 SEEN, Urine Bacteria 0 SEEN, Hyaline Casts 10-25 SEEN, Urine Mucus 0 SEEN 11/13/24 14:35: Troponin T High Sens 20 H D, C-React Prot Ext Range 10.90 H 11/13/24 16:52: Lactic Acid 1.6 11/13/24 21:29: APTT 73.1 H 11/14/24 04:45: WBC 6.3, RBC 3.76 L, Hgb 9.3 L, Hct 28.9 L, MCV 76.9 L, MCH 24.7 L, MCHC 32.2, RDW Std Deviation 43.0, RDW Coeff of Chris 15.8 H, Plt Count 393, MPV 8.9, Immature Gran % (Auto) 0.300, Neut % (Auto) 58.6, Lymph % (Auto) 30.8, Hud[place] % (Auto) 7.4, Eos % (Auto) 2.1, Baso % (Auto) 0.8, Absolute Neuts (auto) 3.7, Absolute Lymphs (auto) 1.95, Nucleated RBC % 0, APTT 56.1 H, Sodium 131 L, Potassium 3.4, Chloride 100, Carbon Dioxide 17.5 L, Anion Gap 14, BUN 40 H, Creatinine 2.17 H, Estim Creat Clear Calc 38.54 L, Est GFR (MDRD) Non-Af 29 L, BUN/Creatinine Ratio 18.6, Glucose 146 H, Calcium 8.8, Total Bilirubin 1.20, AST 102 H, ALT 205 H, Alkaline Phosphatase 273 H, Total Protein 7.0, Albumin 3.4 L, Globulin 3.6, Albumin/Globulin Ratio 1.0 11/14/24 11:10: APTT 55.3 H Micro: Microbiology 11/13/24 13:34 Urine Catheter - Catheter Urine Culture - Preliminary Culture exhibits no growth. 11/13/24 13:36 Mucosa - Nose SARS-CoV-2, Influenza & RSV (PCR) - Final Radiography Diagnostic Testing: Radiology Impression Chest X-Ray 11/13/24 14:13 IMPRESSION: NO ACUTE FINDINGS. Reading Location: [facility] Foot X-Ray 11/13/24 15:30 IMPRESSION: 1. Soft tissue swelling without acute fracture. 2. Significant flexion at the 2nd PIP, which limit the evaluation. 3. If symptoms persist, further evaluation with CT is recommended. Reading Location: [facility] Physical Exam Const alert, oriented x3, no apparent distress, average body habitus and healthy appearing General Appearance: cooperative, well kempt and well developed Orientation / Consciousness: awake, oriented to person, oriented to place and oriented to time HEENT normocephalic, head/scalp atraumatic and moist oral mucous membranes Eyes PERRL, EOMs intact bilaterally and conjunctivae normal Neck supple, no JVD, thyroid normal and no carotid bruits General: trachea midline Resp normal respiratory effort, no retractions, no use of accessory muscles and clear to auscultation bilaterally Auscultation: Negative for rales, rhonchi or wheezes Cardio regular rate, regular rhythm, S1 normal heart sound, S2 normal heart sound, no murmurs, no rub and no gallops GI normal to inspection, nondistended, normoactive bowel sounds, soft to palpation, non-tender and non-distended GI Narrative: Patient has an ileostomy Extremity no clubbing, cyanosis or edema Skin Skin Narrative: There is marked gangrene of the left foot noted involving all of the toes, there is a small area of eschar/dry gangrene on the right foot Neuro oriented x3, CN's II-XII intact bilaterally, no focal motor deficits and no sensory deficits noted Sensorium / Orientation: awake and alert Speech: speech normal Psych affect normal Assessment & Plan Assessment/Plan (1) Sepsis: PLAN: Plan 1 sepsis secondary to gangrene of the left foot-continue present antibiotic coverage, surgery is planned for the patient tomorrow by podiatry, vascular surgery will see the patient in consultation #2 acute kidney injury-patient's creatinine is improving, I will continue fluid administration #3 bipolar disorder-complicates care, management, recovery, and prognosis, patient remains on her present medications #4 hypotension-patient is on midodrine currently, blood pressure will be monitored Total clinical time spent by myself addressing the patient's medical issues, reviewing all of her data, and collaborating with the patient's care team: 35 minutes Charges/Coding Visit Charges Inpatient E&M: 75448 Subs Hosp L2
[2024-11-14 17:53] LABS: Partial Thromboplast Time 30.6 Seconds (24.1-36.2)
[2024-11-14] MEDS: Heparin Injection (Vial) 5,000 UNIT/ML VIAL IV (18:42)
[2024-11-14] MEDS: 0.9% Saline Lock 10 ML Syringe IV (18:42)
[2024-11-14] MEDS: HEPARIN/D5w 25,000 UNITS 25,000 UNITS/250 ML IV.SOLN. 11 UNITS CONT INF (20:07)
[2024-11-14] MEDS: OLANZapine 10 MG Tablet 20 MG PO (20:28)
[2024-11-15] VITALS (12 sets, daily range): BP systolic 94–109; BP diastolic 63–75; PULSE 75–89; RESP 16–18; TEMP 36.3–36.7; O2SAT 94–100; BMI 29.7
[2024-11-15 01:08] LABS: Partial Thromboplast Time 82.6 Seconds (24.1-36.2)
[2024-11-15] MEDS: 0.9% Normal Saline (1000mL) 1,000 ML 150 ML IV ×3 (03:10→14:27)
[2024-11-15 05:41] LABS: Absolute Lymphocyte Count 2.01 X10^3/uL (0.83-4.51); Absolute Neutrophil Count 3.1 X10^3/uL (2.0-7.7); Basophil# 0.06 X10^3/uL; Eosinophil# 0.11 X10^3/uL; Eosinophils% 1.9 % (0-5); Hematocrit 26.8 % (37-47); Hemoglobin 8.6 g/dL (12.0-15.0); Lymphocyte # 2.01 X10^3/ul (0.83-4.51); Lymphocyte % 34.9 % (19-41); Mean Corp Hgb Conc 32.1 g/dL (32-36); Mean Corpuscular Hgb 25.2 pg (27.0-32.0); Mean Corpuscular Volume 78.6 fL (81-99); Mean Platelet Vol. 9.1 fl (6.2-12.0); Monocyte# 0.46 X10^3/uL; NRBC Flagged by Analyzer 0 % (0-5); Neutrophil % 53.9 % (47-70); Platelet Count 394 K/mm3 (150-450); RBC Distribution Width SD 45.2 fl (35.1-43.9); Red Blood Count 3.41 M/mm3 (4.2-5.4); White Blood Count 5.8 K/mm3 (4.4-11.0)
[2024-11-15] MEDS: Gabapentin 600 MG Tablet PO ×3 (05:45→19:59)
[2024-11-15] MEDS: Piperacil/Tazobactam 3.375 GM in 0.9% Normal Saline (50mL MB+) 50 ML IV ×3 (05:45→20:00)
[2024-11-15 06:07] LABS: Internal QC Validated? YES +Cl - CLEAR BKGD; Pregnancy, Urine Negative Negative
[2024-11-15 06:16] LABS: International Normalized Ratio 1.1
[2024-11-15 06:17] LABS: Partial Thromboplast Time 59.2 Seconds (24.1-36.2)
[2024-11-15 06:20] LABS: Anion Gap 11 (5-15); BUN 19 mg/dL (4-19); BUN/Creat Ratio 13.5 RATIO (10-20); Calcium,Total 8.3 mg/dL (7.6-11.0); Chloride 105 mmol/L (98-108); Creatinine, Serum 1.38 mg/dL (0.70-1.20); EST Glomerular Filtration Rate 49 (>60); Estimated Creatinine Clearance 60.44 ml/min (50-250); Glucose 90 mg/dL (70-99); Potassium 3.2 mmol/L (3.3-5.1); Sodium Level 135 mmol/L (133-145)
[2024-11-15] MEDS: Midodrine HCl 5 MG Tablet 10 MG PO ×2 (08:42→17:28)
--- NOTE | 2024-11-15 09:36 | PN.HOSP_ITS ---
Reason for Visit Reason for Visit: Diagnoses Sepsis, unspecified organism (11/13/24) Gangrene, not elsewhere classified (11/13/24) Acute kidney failure, unspecified (11/13/24) Subjective Subjective Patient was seen and examined today, her white blood cell count is normal, she is due to go to surgery for partial amputation of her left foot today, I talked with vascular surgery yesterday briefly, they indicated that she would be a good candidate for the surgery and that there is good arterial blood flow to that area. Objective Data Objective Data Vital Signs: Vital Signs Temp Pulse Resp BP Pulse Ox O2 Del Method 97.8 F 78 16 94/64 94 Room Air 11/15/24 07:38 11/15/24 07:38 11/15/24 07:38 11/15/24 07:38 11/15/24 07:38 11/15/24 08:46 Oxygen Delivery Method Room Air Weight: 86.001 kg Body Mass Index (BMI) 29.7 Intake & Output: Intake and Output for Last 24 Hours 11/13/24 11/14/24 11/15/24 23:59 23:59 23:59 Intake Total 3662.5 / 3662.5 7622.5 / 7622.5 1147.75 / 1147.75 Output Total 2049 / 2049 9050 / 9050 1200 / 1200 Balance 1612.5 / 1612.5 -1427.5 / -1427.5 -52.25 / -52.25 Lab / Micro Data 11/15/24 04:50 11/15/24 04:50 Labs: Laboratory Results - last 24 hr 11/14/24 11:10: APTT 55.3 H 11/14/24 17:30: APTT 30.6 11/15/24 00:40: APTT 82.6 H 11/15/24 03:00: Urine Test Negative 11/15/24 04:50: WBC 5.8, RBC 3.41 L, Hgb 8.6 L, Hct 26.8 L, MCV 78.6 L, MCH 25.2 L, MCHC 32.1, RDW Std Deviation 45.2 H, RDW Coeff of Chris 16.0 H, Plt Count 394, MPV 9.1, Immature Gran % (Auto) 0.300, Neut % (Auto) 53.9, Lymph % (Auto) 34.9, Dickson % (Auto) 8.0, Eos % (Auto) 1.9, Baso % (Auto) 1.0, Absolute Neuts (auto) 3.1, Absolute Lymphs (auto) 2.01, Nucleated RBC % 0, PT 14.0, INR 1.1, APTT 59.2 H, Sodium 135, Potassium 3.2 L, Chloride 105, Carbon Dioxide 19.0 L, Anion Gap 11, BUN 19, Creatinine 1.38 H, Estim Creat Clear Calc 60.44, Est GFR (MDRD) Non- Af 49 L, BUN/Creatinine Ratio 13.5, Glucose 90, Calcium 8.3 Micro: Microbiology 11/13/24 13:34 Urine Catheter - Catheter Urine Culture - Final Culture exhibits no growth. 11/13/24 13:36 Mucosa - Nose SARS-CoV-2, Influenza & RSV (PCR) - Final Radiography Diagnostic Testing: Radiology Impression Extremity Arterial Study 11/14/24 09:39 Interpretation Summary Right KASSIDY 1.08, normal. Doppler/PVR waveforms of the right leg normal at rest. TBI diminished, pedal/digit disease vs spasm. Left KASSIDY 1.07, normal. Doppler/PVR waveforms of the left leg normal at rest. TBI diminished, pedal/digit disease vs spasm. Ordering Physician: Ailyn Robert Referring Physician: Fredrick Boland Performed By: Jackelyn Garay RVT Physical Exam Narrative alert, oriented x3, no apparent distress, average body habitus and healthy appearing General Appearance: cooperative, well kempt and well developed Orientation / Consciousness: awake, oriented to person, oriented to place and oriented to time HEENT normocephalic, head/scalp atraumatic and moist oral mucous membranes Eyes PERRL, EOMs intact bilaterally and conjunctivae normal Neck supple, no JVD, thyroid normal and no carotid bruits General: trachea midline Resp normal respiratory effort, no retractions, no use of accessory muscles and clear to auscultation bilaterally Auscultation: Negative for rales, rhonchi or wheezes Cardio regular rate, regular rhythm, S1 normal heart sound, S2 normal heart sound, no murmurs, no rub and no gallops GI normal to inspection, nondistended, normoactive bowel sounds, soft to palpation, non-tender and non-distended GI Narrative: Patient has an ileostomy Extremity no clubbing, cyanosis or edema Skin Skin Narrative: There is marked gangrene of the left foot noted involving all of the toes, there is a small area of eschar/dry gangrene on the right foot at the second toe Neuro oriented x3, CN's II-XII intact bilaterally, no focal motor deficits and no sensory deficits noted Sensorium / Orientation: awake and alert Speech: speech normal Psych affect normal Assessment & Plan Assessment/Plan (1) Ischemic necrosis of toe: (2) Sepsis: PLAN: Plan 1 sepsis secondary to gangrene of the left foot-continue present antibiotic coverage, surgery is planned for the patient tomorrow by podiatry, vascular surgery will see the patient in consultation #2 acute kidney injury-patient's creatinine is improving, I will continue fluid administration #3 bipolar disorder-complicates care, management, recovery, and prognosis, patient remains on her present medications #4 hypotension-patient is on midodrine currently, blood pressure will be monitored, systolic blood pressure remains in the 90s Total clinical time spent by myself addressing the patient's medical issues, reviewing all of her data, and collaborating with the patient's care team: 35 minutes Charges/Coding Visit Charges Inpatient E&M: 62303 Subs Hosp L2
[2024-11-15] MEDS: Linezolid 600 MG 600 MG/300 ML BAG 200 MG IV ×2 (09:53→20:00)
[2024-11-15] MEDS: Lactated Ringers 1,000 ML 15 ML IV (10:48)
--- NOTE | 2024-11-15 10:59 | PRE.ANES_ITS ---
ASA Classification* ASA Classification ASA Classification: 3 Assessment & Plan Anesthesia* Anesthesia Assessment Anesthesia Assessment: Discussed sedation and/or anesthesia options, risks, benefits, and alternatives with patient/parents/legal guardian/POA. Questions invited. The patient/parents/legal guardian/POA seems to understand and agrees to proceed with anesthesia plan. Reviewed the physical assessment, medical history, allergy history and patient home medications list prior to surgery/procedure/anesthetic and documented any changes. Performed airway and anesthesia risk assessments. Anesthesia Type Anesthesia Type: MAC ( General anesthesia backup.) Anesthesia Focused Assessment* Temperature: 97.8 F Pulse Rate: 78 Blood Pressure: 94/64 Respiratory Rate: 16 Pulse Ox: 94 Airway Assessment Mouth opens: >3 cm Mallampati Score: II Focused Labs Anesthesia Preop lab: CBC WBC 5.8 K/mm3 (4.4-11.0) 11/15/24 04:50 11/15/24 RBC 3.41 M/mm3 (4.2-5.4) L 11/15/24 04:50 11/15/24 Hgb 8.6 g/dL (12.0-15.0) L 11/15/24 04:50 11/15/24 Hct 26.8 % (37-47) L 11/15/24 04:50 11/15/24 Plt Count 394 K/mm3 (150-450) 11/15/24 04:50 11/15/24 CHEMISTRY Potassium 3.2 mmol/L (3.3-5.1) L 11/15/24 04:50 11/15/24 Sodium 135 mmol/L (133-145) 11/15/24 04:50 11/15/24 Magnesium 1.3 mg/dL (1.5-2.2) L 11/03/24 08:30 11/03/24 Phosphorus 4.0 mg/dL (2.7-4.5) 10/29/24 07:48 10/29/24 BUN 19 mg/dL (4-19) 11/15/24 04:50 11/15/24 Creatinine 1.38 mg/dL (0.70-1.20) H 11/15/24 04:50 Glucose 90 mg/dL (70-99) 11/15/24 04:50 11/15/24 POC Glucose 99 mg/dL (70-110) 11/03/17 05:32 11/03/17 TSH 3.65 uIU/mL (0.358-3.74) 02/16/13 15:29 3 COAG PT 14.0 SECONDS (11.7-14.9) 11/15/24 04:50 Urine Test Negative Negative 11/15/24 03:00 11/15/24 Pre-Assessment Diagnosis/Proposed Procedure Planned Operative Procedure(s): Partial amputation left foot. 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 When Was Last Pacemaker Check QUESTION #4 FULL TEXT: You/Your Family Experience fever (hyperthermia) with Anesthesia Last Oral Intake Last Oral intake: Last Oral Intake NPO since 00:00 11/15/24 08:43 Meds taken in AM with sips of Yes 11/15/24 08:43 water? 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 Female HX of Motion Sickness HX of N/V After Surgery Non-Smoker Duration of Surgery greater than 60 minutes Number of Risk Factors PONV Score Height & Weight Height & Weight: Anesthesia: Height & Weight Height 5 ft 7 in 11/15/24 08:43 Weight: 86.001 kg 11/15/24 08:43 Body Mass Index (BMI) 29.7 11/15/24 08:43 Respiratory Assessment Respiratory Assessment - fuel truck driver: Respiratory Tract Infection Hx - fuel truck driver Hx Respiratory Tract Infection No 11/14/24 20:10 STOP Sleep Apnea STOP Sleep Apnea - fuel truck driver: STOP Sleep Apnea - fuel truck driver Hx Hypertension No 11/14/24 14:00 Hx Sleep Apnea No 11/13/24 17:46 CPAP BIPAP Do you snore loudly (louder No 11/13/24 17:46 than talking or can be heard Do you often feel tired/ No 11/13/24 17:46 fatigued/ sleepy during daytime? Has anyone observed you stop No 11/13/24 17:46 breathing during sleep? STOP Results Negative 11/13/24 17:46 QUESTION #5 FULL TEXT : Do you snore loudly (louder than talking or can be heard through closed doors)? 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 Specify any problems Hx of Preganancy in last 3 No 11/13/24 17:46 Months Nurse Filling Out Transfusion [id number] 11/13/24 17:46 & Questions: Date: 11/13/24 11/13/24 17:46 Time: 18:11/13/24 17:46 Patient unable to answer at this time (ie. 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 INHALATION Q2H PRN PRN SOB &/OR WHEEZING Calcium Polycarbophil 1,250 mg 11/13/24 22:00 11/15/24 05:45 Calcium Polycarbophil 625 Mg Tablet PO 1,250 mg TID LIOR Administration Diphenoxylate HCl/Atropine 2 tablet 11/13/24 18:00 11/15/24 08:27 Diphenoxylate/Atrop 1 Tablet PO Not Given 4X/DAY LIOR Ferrous Sulfate 325 mg 11/14/24 12:00 11/14/24 11:26 Ferrous Sulfate 325 Mg Tablet PO 325 mg DAILY@1200 LIOR Administration Gabapentin 600 mg 11/13/24 22:00 11/15/24 05:45 Gabapentin 600 Mg Tablet PO 600 mg TID LIOR Administration Heparin Sodium (Porcine) 0 unit 11/13/24 15:25 11/14/24 18:42 Heparin Injection (Vial) 5,000 Unit/Ml Vial IV 1,000 unit UD PRN Administration dose adjustment Protocol Sodium Chloride 1,000 mls @ 150 mls/hr 11/13/24 17:16 11/15/24 09:36 IV 150 mls/hr .Q6H40M LIOR Administration Piperacillin Sod/Tazobactam 50 mls @ 12.5 mls/hr 11/13/24 22:00 11/15/24 09:53 Sod 3.375 gm/ Sodium Chloride IV Infused Q8 LIOR Infusion Linezolid 600 mg in 300 mls @ 200 mls/hr 11/13/24 22:00 11/15/24 09:53 Zyvox 600mg IV 200 mls/hr Q12 LIOR Administration Lactated Ringer's 1,000 mls @ 15 mls/hr 11/15/24 11:00 11/15/24 10:48 IV 15 mls/hr .Q48H LIOR Administration Loperamide HCl 2 mg 11/13/24 17:16 Loperamide 2 Mg Capsule PO Q6H PRN .Diarrhea Melatonin 10 mg 11/13/24 17:16 Melatonin 10 Mg Tablet PO QHS PRN PRN INSOMNIA Midodrine 10 mg 11/13/24 17:16 11/15/24 08:42 Midodrine Hcl 5 Mg Tablet PO 10 mg TIDCM LIOR Administration Olanzapine 20 mg 11/13/24 22:00 11/14/24 20:28 Olanzapine 10 Mg Tablet PO 20 mg QHS LIOR Administration Pantoprazole Sodium 40 mg 11/14/24 10:00 11/15/24 08:27 Pantoprazole Sodium 40 Mg Tablet PO Not Given DAILY LIOR Potassium Chloride 40 meq 11/14/24 08:00 11/15/24 08:27 Potassium Chloride Oral Tablet 20 Meq PO Not Given DAILYCM [facility] Sodium Chloride 10 - 40 ml 11/13/24 18:16 11/14/24 18:42 0.9% Saline Lock 10 Ml Syringe IV 10 ml UD PRN Administration SALINE FLUSH [facility] Medical History Ischemic necrosis of toe Hx of blood clots Diarrhea Tobacco use Obesity Anxiety Borderline personality disorder Bipolar disorder Home Medications ?Medication ?Instructions ?Recorded ?Last Taken ?Type escitalopram oxalate 20 mg tablet 20 mg PO DAILY ASK P CP 04/27/22 06/19/23 History olanzapine 20 mg tablet 20 mg PO QHS ASK PCP 06/20/ 3 06/19/23 History omeprazole 40 mg capsule,delayed 40 mg PO DAILY ASK PC P 06/20/23 06/19/23 History release ferrous sulfate 325 mg (65 mg 325 mg PO DAILY ASK PCP #30 tabs 07/30/24 Unknown Rx iron) tablet potassium chloride 20 mEq 40 meq (2 x 20 mEq) PO DAILY ASK 07/30/24 Unknown Rx tablet,extended release PCP #14 tabs enoxaparin 100 mg/mL subcutaneous mg subcut ASK PCP Unknown History syringe gabapentin 600 mg tablet 600 mg PO TID ASK PCP Unknown History calcium polycarbophil 625 mg 1,250 mg (2 x 625 mg) PO TID #90 11/05/24 Unknown Rx tablet (Fiber (calcium tabs polycarbophil)) diphenoxylate-atropine 2.5 2 tab PO 4X/DAY #120 tabs 0 11/05/24 Unknown Rx mg-0.025 mg tablet loperamide 2 mg capsule 2 mg PO Q6 PRN Diarrhea #0 c aps 11/05/24 Unknown Rx midodrine 5 mg tablet 10 mg (2 x 5 mg) PO TIDCM #9 0 tabs 11/05/24 Unknown Rx Allergy/AdvReac Type Severity Reaction Status Date / Time No Known Allergies Allergy Verified 10/28/24 16:09 Family History Other Heart disease Surgical History History of creation of ostomy Hx of cholecystectomy H/O section History of carpal tunnel surgery Social History Smoking Status: Former smoker substance use type: does not use Review of Systems (Anesthesia) ROS Narrative System reviewed and no additional complaints, except as documented.
--- NOTE | 2024-11-15 11:30 | AMP_PTH ---
PATIENT: CHERYL ROSADO LOC: MS3 U#:[id number] AGE/SX: 39/F ROOM: [facility] [place]13/[address]: Dr. Chester Cai DO : 1985 BED: 1 DIS: 11/16/2024 SPEC #: [id number] RECD: 11/15/24 13:42 STATUS: NIKOLAS REJey #: [id number] STACEY: 11/15/24 11:[address]: Alok Arreaga DEPT: SURGICAL PATHOLOGY RECD BY: Omar Murillo ENTERED: 11/15/24 13:59 SP TYPE: Amputation OTHR DR: DO Dr. Chester Garcia DO Dr. Paige Pierce, MD Tissues: A - Foot, NOS Procedures: Decalcification bone/plaque Surgery Specimen Level V HEADER OPERATION: Partial amputation left foot; debridement left heel ulcer PRE-OP DIAGNOSIS: Gangrene left foot TISSUE SUBMITTED: A- Left forefoot MICROSCOPIC DIAGNOSIS A. 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 GROSS DESCRIPTION A. Received in formalin in a container labeled with the patient's name, date of , and left forefoot is a left disarticulated forefoot amputation with 5 intact digits, measuring 10.4 x 6.2 x 3.3 cm overall. The disarticulated joint surfaces are smooth and firm. The soft tissue resection margin appears grossly viable. Each toe exhibits a yellow-carolina, thickened toenails The first 4 toes exhibit black-carolina, mummified wounds with skin sloughing ranging from 2.8 x 1.5 cm to 3.5 x 1.5 cm. The second toe exhibits a 1.2 x 0.8 cm previously disrupted area with exposed firm cunha-yellow bone. The mummified wounds come to within 0.7 cm of the closest soft tissue resection margin (inked black). The remaining skin is white-cunha with a scant amount of red-pink mottling. Sectioning of the wounds reveals firm underlying bone. Received in the same container are 5 transected MP joint fragments with a smooth and firm resection margin and opposing disarticulated surface. The bone fragments range from 1.3 x 1.2 x 0.7 cm to 2.4 x 2.2 x 1.5 cm. Sectioning reveals firm bone with focal carolina discolorations. Shift Superintendent sections:A1. Perpendicular sections of wound to closest soft tissue resection margin (larger piece from hallux, smaller piece from fourth toe)A2-3. Sampled mummified wounds from each toe, with area of mottling in A3A4. Cross-section of second toe with exposed bone, and bone from fourth toe underlying mummified wound (following decalcification) A5. Separate bone fragments following decalcification [facility] 11-15-2024 CPT:[id number]
[2024-11-15] MEDS: Lidocaine 1% (20 ml mdv) 20 ML Vial (11:55)
[2024-11-15] MEDS: Bupivacaine Mpf 0.5% 30 ML VIAL (11:55)
--- NOTE | 2024-11-15 12:47 | PCM.OPRPT ---
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 Special Skills Officer: Giovanni Merrill Tasks completed by advertising assistant: Retracting Type of Anesthesia: General/Supplemental RN Documented Start/Stop Times: Operation Date: 11/15/24 11:30 Case Time Into Pre-Op 11/15/24 10:27 Out of Pre-Op 11/15/24 11:39 Anesthesia Start 11/15/24 11:46 Into Room 11/15/24 11:46 Procedure Start 11/15/24 12:10 Procedure End 11/15/24 12:40 Procedure Start Time: 12:08 Procedure Stop Time: 12:37 Select all DRAINS/GRAFTS/IMPLANTS that apply: None Estimated Blood Loss: 10ml Specimen collected: Yes Description of specimen(s) removed: gangrenous forefoot Description of surgery: general with local injected. sterile prep and drape with betadine scrub. 2 semielliptical incisions made at base of toes carried straight to bone/MPJs. MPJ's disarticulated and forefoot sent to patho. Not enough skin to close so saw used to excise heads of metatarsal and sesmoids. all tissue was viable, bleeding, healthy at this level. 2.0 prolene sutures in horizontal mattress for retention then 3.0 nylon used in running interlocking to close. attention directed to heel ischemic wound, sharply debride to fat layer and cultured. no deep abcess or tracking, normal fat tissue underneath, no odor, no purulence. good bleeding tissue remained. sterile dressing applied after tourniquet deflated and good perfusion to all remaining skin. Surgical Findings: gangrene distal foot;healthy proximal well perfused tissue. Complications Complications: No Admit VTE Documentation VTE Present on Admission: Yes VTE Mechan Device Prophylaxis: SCD's (bilateral) VTE Pharm Prophylaxis ordered?: Yes
--- NOTE | 2024-11-15 12:57 | PCM.POST.ANE ---
Anesthesia: Postop Eval I Current Vital Signs Temperature: 98.1 F Pulse Rate: 84 Blood Pressure: 95/64 Respiratory Rate: 16 Pulse Ox: 98 Oxygen Delivery Method: Room Air Assessment Airway patent: Yes Spontaneous unlabored respirations: Yes Mental status: Awake and Calm nausea: No Vomiting: No Anesthesia Complication: No Fluid Hydration Crystalloid volume administer (ml): 500 Total IV fluid infused: 500 Progress Note Anesthesia document: Postop Eval 1 completed: Yes
--- NOTE | 2024-11-15 13:04 | POSTOPAN2_ITS ---
Anesthesia Postop Eval I Sum Postop Eval Completion status Anesthesia document: Postop Eval 1 completed: Yes Anesthesia Postop Eval I Summary Anesthesia Postop Eval I Summary: Anesthesia Postop Eval I: Assessment Summary Airway patent Yes 11/15/24 12:57 BOILER [email or web address] Spontaneous unlabored Yes 11/15/24 12:57 BOILER [email or web address] respirations Mental status Awake,Calm 11/15/24 12:57 BOILER [email or web address] nausea No 11/15/24 12:57 BOILER [email or web address] Vomiting No 11/15/24 12:57 BOILER [email or web address] Anesthesia Postop Eval I: Fluid Summary Crystalloid volume administer 500 11/15/24 12:57 BOILER [email or web address] (ml) Colloids volume administered ( ml) Blood Product volume administered (ml) Total IV fluid infused 500 11/15/24 12:57 BOILER [email or web address] Anesthesia Postop Eval I: Summary Notes Anesthesia Complication No 11/15/24 12:57 BOILER [email or web address] Anesthesia Complication Comment: Post-operative progress note Anesthesia: Postop Eval II Evaluation Mental status: Awake Pain Level: 0 nausea: No Vomiting: No
--- NOTE | 2024-11-15 13:04 | PCM.POSTANE2 ---
Anesthesia Postop Eval I Sum Postop Eval Completion status Anesthesia document: Postop Eval 1 completed: Yes Anesthesia Postop Eval I Summary Anesthesia Postop Eval I Summary: Anesthesia Postop Eval I: Assessment Summary Airway patent Yes 11/15/24 12:57 SHOE [email or web address] Spontaneous unlabored Yes 11/15/24 12:57 SHOE [email or web address] respirations Mental status Awake,Calm 11/15/24 12:57 SHOE [email or web address] nausea No 11/15/24 12:57 SHOE [email or web address] Vomiting No 11/15/24 12:57 SHOE [email or web address] Anesthesia Postop Eval I: Fluid Summary Crystalloid volume administer 500 11/15/24 12:57 SHOE [email or web address] (ml) Colloids volume administered ( ml) Blood Product volume administered (ml) Total IV fluid infused 500 11/15/24 12:57 SHOE [email or web address] Anesthesia Postop Eval I: Summary Notes Anesthesia Complication No 11/15/24 12:57 SHOE [email or web address] Anesthesia Complication Comment: Post-operative progress note Anesthesia: Postop Eval II Evaluation Mental status: Awake Pain Level: 0 nausea: No Vomiting: No
[2024-11-15] MEDS: 0.9% Saline Lock 10 ML Syringe IV ×2 (14:25→18:15)
[2024-11-15] MEDS: Diphenoxylate/Atrop 1 Tablet 2 TABLET PO ×3 (14:25→20:00)
[2024-11-15] MEDS: Acetaminophen 325 MG Tablet 650 MG PO (15:15)
[2024-11-15] MEDS: Enoxaparin 100 MG/ML Syringe 90 MG SC ×2 (16:25→19:59)
[2024-11-15] MEDS: oxyCODONE 5 MG Tablet PO ×2 (16:29→20:33)
[2024-11-15] MEDS: Morphine 4 MG/ML Syringe IV ×2 (18:15→22:23)
[2024-11-15] MEDS: OLANZapine 10 MG Tablet 20 MG PO (19:59)
[2024-11-16] MEDS: Acetaminophen 325 MG Tablet 650 MG PO (00:27)
[2024-11-16] MEDS: oxyCODONE 5 MG Tablet PO ×3 (00:27→10:19)
[2024-11-16 01:23] VITALS: BP 104/76; PULSE 90; RESP 16; TEMP 36.5; O2SAT 100
[2024-11-16] MEDS: Morphine 4 MG/ML Syringe IV ×2 (02:23→09:06)
[2024-11-16] MEDS: 0.9% Normal Saline (1000mL) 1,000 ML 150 ML IV (02:24)
[2024-11-16] MEDS: Piperacil/Tazobactam 3.375 GM in 0.9% Normal Saline (50mL MB+) 50 ML IV (06:00)
[2024-11-16] MEDS: Gabapentin 600 MG Tablet PO (06:02)
[2024-11-16 06:04] VITALS: BMI 29.9
[2024-11-16 06:05] VITALS: BP 111/74; PULSE 85; RESP 16; TEMP 36.6; O2SAT 100
[2024-11-16 08:59] VITALS: BP 101/68; PULSE 87; RESP 18; TEMP 36.6; O2SAT 100
[2024-11-16] MEDS: Potassium Chloride Oral Tablet 20 MEQ 40 MEQ PO (09:06)
[2024-11-16] MEDS: Enoxaparin 100 MG/ML Syringe 90 MG SC (09:06)
[2024-11-16] MEDS: Pantoprazole Sodium 40 MG Tablet PO (09:06)
[2024-11-16] MEDS: Midodrine HCl 5 MG Tablet 10 MG PO ×2 (09:06→11:51)
[2024-11-16] MEDS: Diphenoxylate/Atrop 1 Tablet 2 TABLET PO (09:17)
--- NOTE | 2024-11-16 10:13 | PCM.DC ---
Discharge Instructions Diet Discharge Diet: No restrictions DC O2, CPAP, BIPAP needs Home O2 Discharge instructions: No Dressing / Incision Weight Bearing Status: No weight bearing (Left foot, do not change bandage) Dressing / Incision Call your doctor if your incision/area has: Sudden Increased Bleeding, Increased Pain/ Swelling and Foul Smelling Discharge Follow Up Care Test Results: Test results from this visit will be discussed in further detail at your follow-up appointment, if applicable. Discharge Plan Admission Admit Date/Time: 11/13/24 16:22 Primary Reason for Your Visit: Gangrene left foot Attending Provider: Chester Cai Primary Care Provider: Fredrick Boland Consulting Providers: Ashley Rosen; Alko Arreaga Discharge Orders/Prescriptions Prescriptions: New potassium chloride 20 mEq Tablet,Er Particles/Crystals 40 meq PO DAILYCM Qty: 60 0RF enoxaparin 100 mg/mL Syringe 90 mg subcut BID Qty: 60 0RF hydromorphone [Dilaudid] 4 mg tablet 4 mg PO Q6H PRN (Reason: pain) 5 Days Qty: 20 0RF Rx Instructions: 1/2-1 Q6H prn pain-May take with Tylenol 650 mg Continued escitalopram oxalate 20 mg tablet 20 mg PO DAILY olanzapine 20 mg tablet 20 mg PO QHS omeprazole 40 mg capsule,delayed release(DR/EC) 40 mg PO DAILY ferrous sulfate 325 mg (65 mg iron) tablet 325 mg PO DAILY Qty: 30 0RF gabapentin 600 mg tablet 600 mg PO TID calcium polycarbophil [Fiber (calcium polycarbophil)] 625 mg Tablet 1,250 mg PO TID Qty: 90 0RF loperamide 2 mg Capsule 2 mg PO Q6 PRN (Reason: Diarrhea) Qty: 0 0RF midodrine 5 mg Tablet 10 mg PO TIDCM Qty: 90 0RF diphenoxylate-atropine 2.5-0.025 mg Tablet 2 tab PO 4X/DAY Qty: 120 0RF Discontinued potassium chloride 20 mEq tablet extended release 40 meq PO DAILY Qty: 14 0RF enoxaparin 100 mg/mL syringe subcut Patient Comments: PT STATES SHE HAS NOT HAD FOR SEVERAL DAYS, BELIEVES SHE IS SUPPOSED TO START A NEW BLOOD THINNER Referrals / Follow Up: Fredrick Boland, [Primary Care Provider] - Suppan,Alok, DPM [Med Staff - Courtesy Staff] - See Referral Note (11/20/2024-call today for an appointment) Disposition Disposition (needs filled in before D/C Order can be placed): Home, Self Care
[2024-11-16] MEDS: Linezolid 600 MG 600 MG/300 ML BAG 200 MG IV (10:15)
--- NOTE | 2024-11-16 10:27 | CASEMGMT ---
Addendum entered by Laura Shafer 11/16/24 11:13: Received tc from [facility] pharmacy who states they do not have enough lovenox in stock. He states there is no copay or PA. NATHANAEL SHEIKH into pt room, pt is aware that [facility] does not have enough stock. She requests the rx be sent to [facility] in [place]. Pharmacist to trf rx to [facility]. Pt is aware. Original Note: Per hospitalist, pt to leave dressing on until she sees Dr. Arreaga. NATHANAEL SHEIKH into pt room, pt lying in bed in no distress. Pt is aware to leave dressing in place. Pt is questioning a knee scooter. Pt states she has a FWW that she can use. Discussed if it is not covered by her insurance then she may look on [employer]. She states she has looked and it is $90. She states that she is able to afford this should it not be covered. No therapy recommended by PT. Pt is aware that she will be sent home with lovenox. Pt states she has done this before and denies any issues with it. Pt has ostomy supplies but states she will soon need more. She requests NATHANAEL SHEIKH look up the phone number for [facility]. She is aware this will be placed on her dc instructions. Pt denies further needs at this time. TC to [facility], per Adrienne she states that the insurance will only cover one form of mobility. Updated pt. TC to [facility] to check cost or need of PA of enoxaparin, vm left requesting returned call.
--- NOTE | 2024-11-16 10:32 | PCM.DC.SUM ---
Providers Date of Admission: 11/13/24 Date of Discharge: 11/16/24 Primary Care Physician: Dr. 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-continue present antibiotic coverage, surgery is planned for the patient tomorrow by podiatry, vascular surgery will see the patient in consultation #2 acute kidney injury-patient's creatinine is improving, I will continue fluid administration #3 bipolar disorder-complicates care, management, recovery, and prognosis, patient remains on her present medications #4 hypotension-patient is on midodrine currently, blood pressure will be monitored, systolic blood pressure remains in the 90s Total clinical time spent by myself addressing the patient's medical issues, reviewing all of her data, and collaborating with the patient's care team: 35 minutes Medications at Discharge Home Medications escitalopram oxalate 20 mg tablet 20 mg PO DAILY ASK PCP 04/27/22 olanzapine 20 mg tablet 20 mg PO QHS ASK PCP 06/20/23 omeprazole 40 mg capsule,delayed release 40 mg PO DAILY ASK PCP 06/20/23 ferrous sulfate 325 mg (65 mg iron) tablet 325 mg PO DAILY ASK PCP #30 tabs 07/30/24 gabapentin 600 mg tablet 600 mg PO TID ASK PCP 10/28/24 calcium polycarbophil 625 mg tablet (Fiber (calcium polycarbophil)) 1,250 mg (2 x 625 mg) PO TID #90 tabs 11/05/24 diphenoxylate-atropine 2.5 mg-0.025 mg tablet 2 tab PO 4X/DAY #120 tabs 11/05/24 loperamide 2 mg capsule 2 mg PO Q6 PRN Diarrhea #0 caps 11/05/24 midodrine 5 mg tablet 10 mg (2 x 5 mg) PO TIDCM #90 tabs 11/05/24 enoxaparin 100 mg/mL subcutaneous syringe 90 mg (0.9 mL) subcut BID #60 mL 11/16/24 hydromorphone 4 mg tablet (Dilaudid) 4 mg PO Q6H PRN pain 5 days #20 tabs 11/16/24 potassium chloride 20 mEq tablet,extended release(part/cryst) 40 meq (2 x 20 mEq) PO DAILYCM #60 tabs 11/16/24 Hospital Course Operations - (Transmetatarsal amputation of the left foot, debridement of left heel wound) Procedures None Summary of Care Provided Minutes Spent on Discharge: 31 Hospital Course: This 39 was seen in the emergency room it was the hospital with worsening gangrene to her left foot. This occurred due to an aortic thrombus several months ago. Patient had been seeking outpatient wound care but the area on her left foot was not healing. Patient was admitted to [place] [address], placed on IV antibiotics and seen in consultation by podiatry and vascular surgery, podiatry recommended a transmetatarsal amputation of the the left foot along with debridement of her left heel wound, this was carried out and there were no complications. On 11/16/2024, patient was seen and examined: On examination she appeared in good health and spirits, she does not appear to be in any distress. Vital signs as documented. Skin warm and dry and without overt rashes. Neck without JVD, thyroid appears normal, trachea is midline, neck is supple. Lungs clear, normal air movement was noted. Heart exam notable for regular rhythm, normal sounds and absence of murmurs, rubs or gallops. Abdomen unremarkable and without evidence of organomegaly, masses, or abdominal aortic enlargement, bowel sounds are present in all 4 quadrants, no abdominal tenderness was noted. Extremities nonedematous, no cyanosis was noted, no clubbing was noted. Neuro: Cranial nerves II through XII are grossly intact, no focal motor deficits were noted, sensation to light touch and pinprick is intact, motor exam 5/5 throughout. Psych: Patient is alert and oriented x3, she does not appear anxious or depressed, she does not appear agitated. Patient was discharged home in stable condition on 11/16/2024 Weight / BMI Weight Weight: 86.4 kg Body Mass Index (BMI) 29.9 ABG / Lab / Microbiology Data 11/15/24 04:50 11/15/24 04:50 Microbiology: Microbiology 11/15/24 Unknown Wound - Heel Gram Stain - Final 11/13/24 12:48 Blood Culture (Wb) - Anticubital Left Blood Culture - Preliminary No growth in 48 hours. 11/13/24 13:17 Blood Culture (Wb) - Anticubital Left Blood Culture - Preliminary No growth in 48 hours. 11/13/24 13:34 Urine Catheter - Catheter Urine Culture - Final Culture exhibits no growth. 11/13/24 13:36 Mucosa - Nose SARS-CoV-2, Influenza & RSV (PCR) - Final D/C Instructions Discharge Diet: No restrictions Weight Bearing Status: No weight bearing (Left foot, do not change bandage) Call your doctor if your incision/area has: Sudden Increased Bleeding, Increased Pain/ Swelling and Foul Smelling Discharge DC O2, CPAP, BIPAP Needs Home O2 Discharge instructions: No Meaningful Use Info Meaningful Use Meaningful Use Diagnoses (Choose all that apply): None applicable Ischemic Stroke Statin Dosing Therapy Reference: STATIN DOSE THERAPY REFERENCE: * Patients > 75 years receive moderate or high dose statin therapy. * Patients 75 years or YOUNGER should receive HIGH intensity statin dose unless contraindicated. You will be required to document reason for non-treatment if statin daily dose does not meet guidelines. HIGH DOSE STATIN THERAPY DAILY Atorvastatin > than or = to 40 mg Rosuvastatin > than or = to 20 mg Amlodipine + Atorvastatin > than or = to 2.5/40 mg Ezetimibe + Simvastatin 10/80 mg Simvastatin 80mg Discharge Plan Admission Admit Date/Time: 11/13/24 16:22 Primary Reason for Your Visit: Gangrene left foot Attending Provider: Chester aCi Primary Care Provider: Fredrick Boland Consulting Providers: Ashley Rosen; Alok Arreaga Discharge Orders/Prescriptions Prescriptions: New potassium chloride 20 mEq Tablet,Er Particles/Crystals 40 meq PO DAILYCM Qty: 60 0RF enoxaparin 100 mg/mL Syringe 90 mg subcut BID Qty: 60 0RF hydromorphone [Dilaudid] 4 mg tablet 4 mg PO Q6H PRN (Reason: pain) 5 Days Qty: 20 0RF Rx Instructions: 1/2-1 Q6H prn pain-May take with Tylenol 650 mg Continued escitalopram oxalate 20 mg tablet 20 mg PO DAILY olanzapine 20 mg tablet 20 mg PO QHS omeprazole 40 mg capsule,delayed release(DR/EC) 40 mg PO DAILY ferrous sulfate 325 mg (65 mg iron) tablet 325 mg PO DAILY Qty: 30 0RF gabapentin 600 mg tablet 600 mg PO TID calcium polycarbophil [Fiber (calcium polycarbophil)] 625 mg Tablet 1,250 mg PO TID Qty: 90 0RF loperamide 2 mg Capsule 2 mg PO Q6 PRN (Reason: Diarrhea) Qty: 0 0RF midodrine 5 mg Tablet 10 mg PO TIDCM Qty: 90 0RF diphenoxylate-atropine 2.5-0.025 mg Tablet 2 tab PO 4X/DAY Qty: 120 0RF Discontinued potassium chloride 20 mEq tablet extended release 40 meq PO DAILY Qty: 14 0RF enoxaparin 100 mg/mL syringe subcut Patient Comments: PT STATES SHE HAS NOT HAD FOR SEVERAL DAYS, BELIEVES SHE IS SUPPOSED TO START A NEW BLOOD THINNER Referrals / Follow Up: Fredrick Boland DO [Primary Care Provider] - Alok Arreaga DPM [Med Staff - Courtesy Staff] - See Referral Note (11/20/2024-call today for an appointment) Disposition Disposition (needs filled in before D/C Order can be placed): Home, Self Care Charges/Coding Visit Charges Inpatient E&M: 08795 Disch Hosp >30min
[2024-11-16] MEDS: Ferrous Sulfate 325 MG Tablet PO (11:51)
[2024-11-22 14:22] LABS: Pathologist Review Reviewed
== END 2024-11-16 13:16 | disposition home or self-care (01) | DRG 710 ==
LOC: ED 13:01 → ICU 16:27 → MS3 11-14 15:10
PROVIDERS: Anesthesiology; Podiatrist Foot & Ankle Surgery; Admitting Provider Internal Medicine; Emergency Provider Surgery; PCP Student in an Organized Health Care Education/Training Program; Visit Provider Internal Medicine
PROC: 0Y6N0Z9 Detachment at Left Foot, Partial 1st Ray, Open Approach (ICD-10-PCS; principal; 2024-11-15 11:15)
DX: A41.9 Sepsis, unspecified organism (principal); I96 Gangrene, not elsewhere classified; N17.9 Acute kidney failure, unspecified; F31.9 Bipolar disorder, unspecified; F60.3 Borderline personality disorder; Z93.2 Ileostomy status; I95.9 Hypotension, unspecified; E87.1 Hypo-osmolality and hyponatremia; Z79.899 Other long term (current) drug therapy; Z87.891 Personal history of nicotine dependence; Z86.718 Personal history of other venous thrombosis and embolism
CPT/HCPCS: 36415; 51702; 71046; 73630; 80048; 80053; 81001; 81025; 83605; 83880; 84484; 85025; 85610; 85652; 85730; 86140; 87040; 87070; 87075; 87077; 87086; 87186; 87205; 87631; 88307; 88311; 93005; 93923; 97162; 97166; 97530; 97535; 97802; 99285; J2020; A4216; J2405

== ENCOUNTER 2024-11-20 14:31 | Inpatient (IN) | payer MEDICAID, SELFPAY ==
[2024-11-20] VITALS (15 sets, daily range): BP systolic 77–121; BP diastolic 52–88; PULSE 72–142; RESP 10–101; TEMP 35.5–37.2; O2SAT 94–100; BMI 28.8
--- NOTE | 2024-11-20 14:43 | EKG12_ITS ---
Test Reason : DIZZY Blood Pressure : */* mmHG Vent. Rate : 113 BPM Atrial Rate : 113 BPM P-R Int : 126 ms QRS Dur : 90 ms QT Int : 306 ms P-R-T Axes : 74 28 61 degrees QTcB Int : 419 ms Sinus tachycardia Otherwise normal ECG Confirmed by Yoseph Jarquin ([id number]), make up editor LITO BRANDT ([id number]) on 11/26/2024 1:18:42 PM Referred By: Confirmed By: Yoseph Jarquin
[2024-11-20] MEDS: 0.9% Normal Saline (1000mL) 1,000 ML 999 ML IV ×2 (14:54→16:14)
--- NOTE | 2024-11-20 14:56 | EDS_ITS ---
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 States that she was recently here in the hospital and was discharged after amputation her left foot transmetatarsal amputation and debridement of the heel wound. Patient states that she does not believe that she is on any antibiotics currently. Patient denies any sick contacts. [facility] Medical History Ischemic necrosis of toe Hx of blood clots Diarrhea Tobacco use Obesity Anxiety Borderline personality disorder Bipolar disorder Home Medications ?Medication ?Instructions ?Recorded ?Last Taken ?Type escitalopram oxalate 20 mg tablet 20 mg PO DAILY ASK P CP 04/27/22 06/19/23 History olanzapine 20 mg tablet 20 mg PO QHS ASK PCP 06/20/ 3 06/19/23 History omeprazole 40 mg capsule,delayed 40 mg PO DAILY ASK PC P 06/20/23 06/19/23 History release ferrous sulfate 325 mg (65 mg 325 mg PO DAILY ASK PCP #30 tabs 07/30/24 Unknown Rx iron) tablet gabapentin 600 mg tablet 600 mg PO TID ASK PCP Unknown History calcium polycarbophil 625 mg 1,250 mg (2 x 625 mg) PO TID #90 11/05/24 Unknown Rx tablet (Fiber (calcium tabs polycarbophil)) diphenoxylate-atropine 2.5 2 tab PO 4X/DAY #120 tabs 0 11/05/24 Unknown Rx mg-0.025 mg tablet loperamide 2 mg capsule 2 mg PO Q6 PRN Diarrhea #0 c aps 11/05/24 Unknown Rx midodrine 5 mg tablet 10 mg (2 x 5 mg) PO TIDCM #9 0 tabs 11/05/24 Unknown Rx enoxaparin 100 mg/mL subcutaneous 90 mg (0.9 mL) subcu t BID #60 mL 11/16/24 Unknown Rx syringe hydromorphone 4 mg tablet 4 mg PO Q6H PRN pain 5 days #20 11/16/24 Unknown Rx (Dilaudid) tabs potassium chloride 20 mEq 40 meq (2 x 20 mEq) PO DAILY CM #60 11/16/24 Unknown Rx tablet,extended release(part/cryst) tabs Allergy/AdvReac Type Severity Reaction Status Date / Time No Known Allergies Allergy Verified 11/20/24 14:37 Family History Other Heart disease Surgical History History of creation of ostomy Hx of cholecystectomy H/O section History of carpal tunnel surgery Social History Smoking Status: Former smoker substance use type: does not use
--- NOTE | 2024-11-20 14:56 | EX.ED.DYSGE1 ---
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 States that she was recently here in the hospital and was discharged after amputation her left foot transmetatarsal amputation and debridement of the heel wound. Patient states that she does not believe that she is on any antibiotics currently. Patient denies any sick contacts. [facility] Medical History Ischemic necrosis of toe Hx of blood clots Diarrhea Tobacco use Obesity Anxiety Borderline personality disorder Bipolar disorder Home Medications ?Medication ?Instructions ?Recorded ?Last Taken ?Type escitalopram oxalate 20 mg tablet 20 mg PO DAILY ASK PCP 04/27/22 06/19/23 History olanzapine 20 mg tablet 20 mg PO QHS ASK PCP 06/20/23 06/19/23 History omeprazole 40 mg capsule,delayed 40 mg PO DAILY ASK PCP 06/20/23 06/19/23 History release ferrous sulfate 325 mg (65 mg 325 mg PO DAILY ASK PCP #30 tabs 07/30/24 Unknown Rx iron) tablet gabapentin 600 mg tablet 600 mg PO TID ASK PCP 10/28/24 Unknown History calcium polycarbophil 625 mg 1,250 mg (2 x 625 mg) PO TID #90 11/05/24 Unknown Rx tablet (Fiber (calcium tabs polycarbophil)) diphenoxylate-atropine 2.5 2 tab PO 4X/DAY #120 tabs 11/05/24 Unknown Rx mg-0.025 mg tablet loperamide 2 mg capsule 2 mg PO Q6 PRN Diarrhea #0 caps 11/05/24 Unknown Rx midodrine 5 mg tablet 10 mg (2 x 5 mg) PO TIDCM #90 tabs 11/05/24 Unknown Rx enoxaparin 100 mg/mL subcutaneous 90 mg (0.9 mL) subcut BID #60 mL 11/16/24 Unknown Rx syringe hydromorphone 4 mg tablet 4 mg PO Q6H PRN pain 5 days #20 11/16/24 Unknown Rx (Dilaudid) tabs potassium chloride 20 mEq 40 meq (2 x 20 mEq) PO DAILYCM #60 11/16/24 Unknown Rx tablet,extended release(part/cryst) tabs Allergy/AdvReac Type Severity Reaction Status Date / Time No Known Allergies Allergy Verified 11/20/24 14:37 Family History Other Heart disease Surgical History History of creation of ostomy Hx of cholecystectomy H/O section History of carpal tunnel surgery Social History Smoking Status: Former smoker substance use type: does not use ROS ROS ED ROS Narrative constitutional: Complains of lightheadedness as noted above and sweating she states that she feels hot denies any fevers though Eyes: Denies change in vision double vision blurry vision Cardiovascular: Denies chest pain or palpitations Respiratory: Denies coughing wheezing Abdomen: Denies abdominal pain nausea vomiting complains of increased ileostomy output as noted above : Denies any urinary symptoms Neurological: Denies any numbness, weakness, tingling Musculoskeletal: Denies back pain Skin: Denies any rashes or lesions EXAM Physical Exam Narrative Exam Narrative: General: Patient was lying in bed rest comfortably did not appear to be in acute distress Head: Patient diaphoretic atraumatic, normocephalic Eyes: PERRL bilaterally, EOMI bilateral, no conjunctival injection noted Neck: Soft, supple, trachea midline Cardiovascular: Patient tachycardic with regular rhythm Respiratory: Clear to auscultation bilaterally Abdomen: Soft, nondistended, nontender to palpation, patient did have liquid in her ostomy bag Extremities: Radial pulses +2/4 in the bilateral upper extremities, +5/5 strength in the bilateral upper extremities, patient has amputation to the left foot as noted above Neurological: Patient follow commands knew that she was at [facility] years 2024 Skin: Warm, dry, intact no rashes or lesions noted Const Vital Signs: 11/20/24 14:34 11/20/24 14:55 11/20/24 14:56 Temperature 96 F L Temperature Source Tympanic Pulse Rate 142 H Respiratory Rate 20 H Respiratory Effort Normal Non-Labored Respiratory Depth Normal Respiratory Pattern Normal Blood Pressure 77/52 L Blood Pressure Mean 60 Pulse Ox 100 Oxygen Delivery Method Room Air Room Air Room Air Oxygen Flow Rate (L/min) 11/20/24 15:34 11/20/24 16:00 11/20/24 16:07 Temperature 98.9 F 98.6 F Temperature Source Oral Oral Pulse Rate 89 102 H Respiratory Rate 18 101 H 22 H Respiratory Effort Respiratory Depth Respiratory Pattern Blood Pressure 120/87 H 120/78 120/76 Blood Pressure Mean 98 92 90 Pulse Ox 98 98 100 Oxygen Delivery Method Room Air Room Air Room Air Oxygen Flow Rate (L/min) 11/20/24 17:00 11/20/24 18:00 11/20/24 18:53 Temperature 98.2 F 97.9 F Temperature Source Oral Oral Pulse Rate 97 72 73 Respiratory Rate 18 10 L 12 Respiratory Effort Respiratory Depth Respiratory Pattern Blood Pressure 118/76 119/82 H 107/84 H Blood Pressure Mean 90 94 91 Pulse Ox 97 94 100 Oxygen Delivery Method Room Air Nasal Cannula Nasal Cannula Oxygen Flow Rate (L/min) 2 2 11/20/24 18:54 11/20/24 19:02 11/20/24 19:17 Temperature 98.7 F 98.7 F 98.6 F Temperature Source Oral Oral Oral Pulse Rate 88 78 76 Respiratory Rate 18 16 18 Respiratory Effort Respiratory Depth Respiratory Pattern Blood Pressure 105/78 108/78 118/81 H Blood Pressure Mean 87 88 93 Pulse Ox 98 98 100 Oxygen Delivery Method Room Air Room Air Room Air Oxygen Flow Rate (L/min) 11/20/24 19:32 11/20/24 20:02 11/20/24 21:00 Temperature 98.6 F Temperature Source Oral Pulse Rate 77 80 82 Respiratory Rate 18 14 18 Respiratory Effort Respiratory Depth Respiratory Pattern Blood Pressure 121/88 H 115/79 117/80 Blood Pressure Mean 99 91 92 Pulse Ox 100 99 98 Oxygen Delivery Method Room Air Room Air Room Air Oxygen Flow Rate (L/min) MDM MDM MDM Narrative Medical decision making narrative: Patient is a 39-year-old female who presented to the emergency department with a chief complaint of lightheadedness, increased ostomy output, lightheadedness not feeling well. On the differential diagnosis includes abdominal to viral gastroenteritis, obstruction, dehydration, electrolyte abnormality. Once workup is obtained reviewed she will be reevaluated. At 1611 there is no identifiable source of infection however will add on vancomycin and cefepime for antibiotic coverage. At 1715 reperfusion assessment was performed patient's blood pressure has normalized and is not hypotensive therefore no indication for vasopressors Patient CBC reviewed showed white blood cell count of 15,000, hemoglobin 12.5, platelet count of 764. Patient INR normal at 1.1, PT of 14.8, patient is hyponatremic with a sodium of 129, potassium normal at 4.4,, dioxide low at 15.2, anion gap of 25. Patient creatinine elevated to 4.32 indicating acute kidney injury, glucose elevated to 49. Patient lactic acid was 6.1. Patient's calcium was 10.8. Patient AST and ALT are 106 and at 127 respectively they are chronically elevated, total bilirubin normal at 0.82. Patient's troponin was noted to be 38 with a delta troponin noted to be 32. Patient's EKG was reviewed as well which showed sinus tachycardia with a rate of 113 beats per minutes. Patient's foot x-ray was reviewed by myself and by radiology which showed status post transmetatarsal amputation and haziness of the surgical margins a be normal postoperative changes due to recent surgery. Patient's CTA chest abdomen pelvis reviewed showed no PE identified no aortic dissection or aneurysm no contrast extravasation to suggest active bleed. Left lower abdominal quadrant colostomy constipation no bowel obstruction or pneumoperitoneum. 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 Hepatomegaly with fatty infiltration umbilical hernia containing fat. At this point in time do believe the patient would benefit from transfer to [facility] where her surgeon is that did her bowel resection with ostomy. Do believe she likely is dehydrated secondary to large output of her colostomy leading to her laboratory abnormalities. Do believe if we just admit the patient here she will likely come right back as this same instance just happened not long ago. She was just discharged 11/16/2024 for very similar story. Did discuss case with colorectal surgeon Dr. Linares who states that he believes the patient would probably be better suited to going to general surgery. Transfer line then reach out to general surgery. They called back and I spoke with Dr. Marti and he states that he accept the patient for transfer. I updated the patient and she is agreeable with this plan all question concerns answered. Patient was placed on LR at 100 cc an hour. Patient's foot was evaluated with dressing removal and appears to be healing well no concern for active infection. Lab Data Labs: Laboratory Results - last 24 hr 11/20/24 11/20/24 11/20/24 15:12 17:22 19:31 WBC 15.2 H RBC 5.05 Hgb 12.5 Hct 40.4 MCV 80.0 L MCH 24.8 L MCHC 30.9 L RDW Std Deviation 47.2 H RDW Coeff of Chris 16.7 H Plt Count 764 H* MPV 8.8 Immature Gran % (Auto) 0.800 Neut % (Auto) 79.9 H Lymph % (Auto) 15.3 L Hunt % (Auto) 3.3 Eos % (Auto) 0.3 Baso % (Auto) 0.4 Absolute Neuts (auto) 12.1 H Absolute Lymphs (auto) 2.32 Nucleated RBC % 0 Diff Path Review May foll Platelet Estimate MKD INC PT 14.8 INR 1.1 APTT 30.1 Sodium 129 L Potassium 4.4 Chloride 88 L Carbon Dioxide 15.2 L Anion Gap 25 H BUN 36 H Creatinine 4.32 H Estim Creat Clear Calc 19.01 L Est GFR (MDRD) Non-Af 13 L BUN/Creatinine Ratio 8.4 L Glucose 249 H Lactic Acid 6.1 H* 1.7 Calcium 10.8 Total Bilirubin 0.82 AST 106 H ALT 127 H Alkaline Phosphatase 337 H Troponin T High Sens 38 H D Troponin T Hi Sens 2 Hr 32 H Troponin T Hi Sens 4Hr 32 H Total Protein 10.1 H Albumin 4.7 Globulin 5.5 H Albumin/Globulin Ratio 0.9 Radiography Diagnostic Testing: Clinical Impression(s) from Imaging Studies Chest/Abdomen/Pelvis CTA 11/20/24 15:30 IMPRESSION: 1. No pulmonary embolism is identified. Some of the distal pulmonary arteries cannot be evaluated due to suboptimal opacification. 2. No aortic dissection or aneurysm. No contrast extravasation to suggest active bleed. 3. Left lower abdominal quadrant colostomy. Constipation. No bowel obstruction or pneumoperitoneum. 4. 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 5. Hepatomegaly with fatty infiltration. 6. Umbilical hernia containing fat. Reading Location: [facility] Foot X-Ray 11/20/24 16:10 IMPRESSION: Status post TMA. Haziness of the surgical margins may be normal postoperative changes due to recent surgery. Reading Location: [facility] Discharge Plan Triage Chief Complaint: Shortness of Breath Other Complaint: Dizziness ED Provider: John Capps Dx/Rx/DC Orders Clinical Impression: Acute kidney injury, Acidosis, lactic, Acute hyponatremia, Metabolic acidosis Prescriptions: No Action escitalopram oxalate 20 mg tablet 20 mg PO DAILY olanzapine 20 mg tablet 20 mg PO QHS omeprazole 40 mg capsule,delayed release(DR/EC) 40 mg PO DAILY ferrous sulfate 325 mg (65 mg iron) tablet 325 mg PO DAILY Qty: 30 0RF potassium chloride 20 mEq Tablet,Er Particles/Crystals 40 meq PO DAILYCM Qty: 60 0RF enoxaparin 100 mg/mL Syringe 90 mg subcut BID Qty: 60 0RF hydromorphone [Dilaudid] 4 mg tablet 4 mg PO Q6H PRN (Reason: pain) 5 Days Qty: 20 0RF Rx Instructions: 1/2-1 Q6H prn pain-May take with Tylenol 650 mg gabapentin 600 mg tablet 600 mg PO TID calcium polycarbophil [Fiber (calcium polycarbophil)] 625 mg Tablet 1,250 mg PO TID Qty: 90 0RF loperamide 2 mg Capsule 2 mg PO Q6 PRN (Reason: Diarrhea) Qty: 0 0RF midodrine 5 mg Tablet 10 mg PO TIDCM Qty: 90 0RF diphenoxylate-atropine 2.5-0.025 mg Tablet 2 tab PO 4X/DAY Qty: 120 0RF Primary Care Provider: Fredrick Boland Referrals: Fredrick Boland DO [Primary Care Provider] - Print Language: Telugu Disposition Disposition: DC/Tx to Another Type of HCF
[2024-11-20 15:27] LABS: Absolute Lymphocyte Count 2.32 X10^3/uL (0.83-4.51); Absolute Neutrophil Count 12.1 X10^3/uL (2.0-7.7); Basophil# 0.06 X10^3/uL; Basophil% 0.4 % (0-1); Eosinophil# 0.05 X10^3/uL; Eosinophils% 0.3 % (0-5); Hematocrit 40.4 % (37-47); Hemoglobin 12.5 g/dL (12.0-15.0); Lymphocyte # 2.32 X10^3/ul (0.83-4.51); Lymphocyte % 15.3 % (19-41); Mean Corp Hgb Conc 30.9 g/dL (32-36); Mean Corpuscular Hgb 24.8 pg (27.0-32.0); Mean Platelet Vol. 8.8 fl (6.2-12.0); Monocyte% 3.3 % (0-10); NRBC Flagged by Analyzer 0 % (0-5); Neutrophil # 12.13 X10^3/uL (2.7-7.7); Neutrophil % 79.9 % (47-70); POSITIVE COUNT YES; RBC Distribution Width CV 16.7 % (11.6-14.6); RBC Distribution Width SD 47.2 fl (35.1-43.9); Red Blood Count 5.05 M/mm3 (4.2-5.4); White Blood Count 15.2 K/mm3 (4.4-11.0)
--- NOTE | 2024-11-20 15:30 | CT_ITS ---
EXAM: CT Angiography Chest and CT Abdomen and Pelvis With Intravenous Contrast CLINICAL INDICATION: INCREASED OSTOMY OUTPUT TECHNIQUE: Axial computed tomographic angiography images of the chest and axial computed tomography images of the abdomen and pelvis with intravenous contrast. This CT exam was performed using one or more of the following dose reduction techniques: automated exposure control, adjustment of the mA and/or kV according to patient size, and/or use of iterative reconstruction technique. MIP reconstructed images were created and reviewed. COMPARISON: CTA Chest CT Abdomen Pelvis dated 08/20/2024 FINDINGS: LIMITATIONS: Suboptimal opacification of the pulmonary arteries. CHEST: AORTA: No acute findings. No aortic dissection or aneurysm. No contrast extravasation to suggest active bleed. PULMONARY ARTERIES: No pulmonary embolism is identified. Some of the distal pulmonary arteries cannot be evaluated due to suboptimal opacification. GREAT VESSELS OF AORTIC ARCH: No acute findings. No dissection. No arterial occlusion or significant stenosis. LUNGS AND PLEURAL SPACES: Mild lung emphysema/COPD. No mass. No consolidation. No significant effusion. No pneumothorax. HEART: Unremarkable. No cardiomegaly. No significant pericardial effusion. ABDOMEN: LIVER: Hepatomegaly with fatty infiltration. GALLBLADDER AND BILE DUCTS: Unremarkable. No calcified stones. No ductal dilation. PANCREAS: Unremarkable. No ductal dilation. No mass. SPLEEN: Unremarkable. No splenomegaly. ADRENALS: Unremarkable. No mass. KIDNEYS AND URETERS: Unremarkable. No hydronephrosis. No solid mass. STOMACH AND BOWEL: Left lower abdominal quadrant colostomy. Constipation. No bowel obstruction or pneumoperitoneum. No mucosal thickening. PELVIS: APPENDIX: No findings to suggest acute appendicitis. BLADDER: Unremarkable. No mass. REPRODUCTIVE: Unremarkable as visualized. CHEST, ABDOMEN and PELVIS: INTRAPERITONEAL SPACE: See above. BONES/JOINTS: No acute fracture. No dislocation. SOFT TISSUES: Umbilical hernia containing fat. VASCULATURE: Re-demonstration of abrupt cut off of the SMA approximately 5 cm fundus origin, likely secondary to thrombus. LYMPH NODES: Unremarkable. No enlarged lymph nodes. CT/CTA Chst, Abd, Pel W and/or WO IMPRESSION: 1. No pulmonary embolism is identified. Some of the distal pulmonary arteries cannot be evaluated due to suboptimal opacification. 2. No aortic dissection or aneurysm. No contrast extravasation to suggest act laura bleed. 3. Left lower abdominal quadrant colostomy. Constipation. No bowel obstructi on or pneumoperitoneum. 4. Re-demonstration of abrupt cut off of the SMA approximately 5 cm fundus cheryl gin, likely secondary to thrombus. 5. Hepatomegaly with fatty infiltration. 6. Umbilical hernia containing fat. [facility]
[2024-11-20 15:36] LABS: Platelet Count 764 K/mm3 (150-450)
[2024-11-20 15:37] LABS: Differential Indicated SCAN CRITERIA MET
--- NOTE | 2024-11-20 15:37 | ED.RN ---
REcieved call from lab. Pts platelets are [phone]. Dr Capps Notified
[2024-11-20 15:55] LABS: ALB/GLOB Ratio 0.9 RATIO (0.9-2.4); AST(SGOT) 106 U/L (<=31); Alanine Aminotransfer ALT/SGPT 127 U/L (<=34); Albumin, Serum 4.7 g/dL (3.5-5.0); Alkaline Phosphatase 337 U/L (35-104); Anion Gap 25 (5-15); BUN 36 mg/dL (4-19); BUN/Creat Ratio 8.4 RATIO (10-20); Calcium,Total 10.8 mg/dL (7.6-11.0); Carbon Dioxide 15.2 mmol/L (21.0-32.0); Chloride 88 mmol/L (98-108); Creatinine, Serum 4.32 mg/dL (0.70-1.20); EST Glomerular Filtration Rate 13 (>60); Estimated Creatinine Clearance 19.01 ml/min (50-250); Globulin 5.5 g/dL (2.2-4.2); Glucose 249 mg/dL (70-99); Potassium 4.4 mmol/L (3.3-5.1); Protein, Total 10.1 g/dL (5.9-8.4); Sodium Level 129 mmol/L (133-145); Total Bilirubin 0.82 mg/dL (0.00-1.30)
[2024-11-20 15:57] LABS: Lactic Acid 6.1 mmol/L (0.0-2.0)
--- NOTE | 2024-11-20 15:58 | ED.RN ---
Lab called with Lactic Acid result of 6.1. Dr Capps notified
[2024-11-20 16:10] LABS: International Normalized Ratio 1.1; Prothrombin Time (Protime)PT. 14.8 SECONDS (11.7-14.9)
--- NOTE | 2024-11-20 16:10 | RAD_ITS ---
EXAM: XR Left Foot Complete, 3 or More Views CLINICAL INDICATION: RECENT SURGERY TECHNIQUE: Frontal, lateral and oblique views of the left foot. COMPARISON: XR Foot dated 11/13/2024 FINDINGS: BONES/JOINTS: Unremarkable. No acute fracture. No dislocation. SOFT TISSUES: Soft tissue swelling. No radiopaque foreign body. OTHER FINDINGS: Status post TMA. Haziness of the surgical margins may be normal postoperative changes due to recent surgery. RAD/Foot min 3 Views IMPRESSION: Status post TMA. Haziness of the surgical margins may be normal postoperative changes due to recent surgery. Reading [facility]
[2024-11-20 16:11] LABS: Partial Thromboplast Time 30.1 Seconds (24.1-36.2)
[2024-11-20 17:06] LABS: Pathologist Review May foll
[2024-11-20 17:07] LABS: Platelet Estimate MKD INC (ADEQ)
[2024-11-20] MEDS: Cefepime HCl 2 GM in 0.9% Normal Saline (100mL MB+) 100 ML IV (17:16)
[2024-11-20] MEDS: Linezolid 600 MG 600 MG/300 ML BAG 200 MG IV (17:41)
[2024-11-20] MEDS: Morphine 4 MG/ML Syringe IV ×2 (17:44→20:48)
[2024-11-20] MEDS: Ondansetron 4 MG/2 ML Vial IV (17:44)
[2024-11-20 17:48] LABS: Troponin T High Sens 2 HR 32 ng/L (<=14)
[2024-11-20] MEDS: 0.9% Normal Saline (1000mL) 1,000 ML 500 ML IV (18:52)
[2024-11-20 19:20] LABS: Reflex Lactate? Y
--- NOTE | 2024-11-20 19:22 | ED.RN ---
patient accidently discharged off ED tracker, undo dispo completed by registration.
[2024-11-20] MEDS: Lactated Ringers 1,000 ML 100 ML IV (19:33)
[2024-11-20 20:10] LABS: Lactic Acid 1.7 mmol/L (0.0-2.0); Troponin T High Sens 4 HR 32 ng/L (<=14)
[2024-11-20 21:31] LABS: Troponin T High Sensitivity 38 ng/L (<=14)
[2024-11-21] VITALS (9 sets, daily range): BP systolic 98–124; BP diastolic 67–80; PULSE 79–89; RESP 16–18; TEMP 36.3–36.8; O2SAT 95–100; BMI 28.9
[2024-11-21] MEDS: Morphine 4 MG/ML Syringe IV (01:31)
--- NOTE | 2024-11-21 02:18 | HP.PCM.HOS_ITS ---
HPI - General General Date of Admission: 11/21/24 HPI Narrative CHERYL EVANS, is a 39 F who presents to the hospital with recurrent lightheadedness and dizziness secondary to dehydration from high ostomy output. She states that she started feeling bad today and presented to the hospital. 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 She did have treatment of her gangrenous toes on her left foot this month by podiatry, and her right toe is being watched. She does have a leukocytosis but is afebrile, no obvious signs of affection, her leukocytosis could be related to dehydration will monitor. [facility] Medical History Ischemic necrosis of toe Hx of blood clots Diarrhea Tobacco use Obesity Anxiety Borderline personality disorder Bipolar disorder Home Medications ?Medication ?Instructions ?Recorded ?Last Taken ?Type escitalopram oxalate 20 mg tablet 20 mg PO DAILY ASK P CP 04/27/22 06/19/23 History olanzapine 20 mg tablet 20 mg PO QHS ASK PCP 06/20/ 3 06/19/23 History omeprazole 40 mg capsule,delayed 40 mg PO DAILY ASK PC P 06/20/23 06/19/23 History release ferrous sulfate 325 mg (65 mg 325 mg PO DAILY ASK PCP #30 tabs 07/30/24 Unknown Rx iron) tablet gabapentin 600 mg tablet 600 mg PO TID ASK PCP Unknown History calcium polycarbophil 625 mg 1,250 mg (2 x 625 mg) PO TID #90 11/05/24 Unknown Rx tablet (Fiber (calcium tabs polycarbophil)) diphenoxylate-atropine 2.5 2 tab PO 4X/DAY #120 tabs 0 11/05/24 Unknown Rx mg-0.025 mg tablet loperamide 2 mg capsule 2 mg PO Q6 PRN Diarrhea #0 c aps 11/05/24 Unknown Rx midodrine 5 mg tablet 10 mg (2 x 5 mg) PO TIDCM #9 0 tabs 11/05/24 Unknown Rx enoxaparin 100 mg/mL subcutaneous 90 mg (0.9 mL) subcu t BID #60 mL 11/16/24 Unknown Rx syringe hydromorphone 4 mg tablet 4 mg PO Q6H PRN pain 5 days #20 11/16/24 Unknown Rx (Dilaudid) tabs potassium chloride 20 mEq 40 meq (2 x 20 mEq) PO DAILY CM #60 11/16/24 Unknown Rx tablet,extended release(part/cryst) tabs Allergy/AdvReac Type Severity Reaction Status Date / Time No Known Allergies Allergy Verified 11/20/24 14:37 Family History Other Heart disease Surgical History History of creation of ostomy Hx of cholecystectomy H/O section History of carpal tunnel surgery Social History Smoking Status: Former smoker substance use type: does not use ROS Constitutional Constitutional: Denies chills, fatigue, fever(s) or malaise Eyes Eyes: Denies blurry vision ENT HEENT: Denies headache(s) or nasal discharge Cardiovascular Cardiovascular: Reports lightheadedness; Denies chest pain, dyspnea on exertion or syncope Respiratory/Chest Respiratory/Chest: Denies cough, shortness of breath at rest or shortness of breath with exertion Gastrointestinal Gastrointestinal: Reports diarrhea; Denies constipation, nausea or vomiting Genitourinary Genitourinary: Denies dysuria Neurologic Neurologic: Denies focal weakness, numbness or tremor(s) Psychiatric Psychiatric: Denies anxiety or depression Vital Signs Vital Signs Vital Signs: 11/20/24 14:34 11/20/24 14:55 11/20/24 14:56 Temperature 96 F L Temperature Source Tympanic Pulse Rate 142 H Respiratory Rate 20 H Respiratory Effort Normal Non-Labored Respiratory Depth Normal Respiratory Pattern Normal Blood Pressure 77/52 L Blood Pressure Mean 60 Pulse Ox 100 Oxygen Delivery Method Room Air Room Air Room Air Oxygen Flow Rate (L/min) 11/20/24 15:34 11/20/24 16:00 11/20/24 16:07 Temperature 98.9 F 98.6 F Temperature Source Oral Oral Pulse Rate 89 102 H Respiratory Rate 18 101 H 22 H Respiratory Effort Respiratory Depth Respiratory Pattern Blood Pressure 120/87 H 120/78 120/76 Blood Pressure Mean 98 92 90 Pulse Ox 98 98 100 Oxygen Delivery Method Room Air Room Air Room Air Oxygen Flow Rate (L/min) 11/20/24 17:00 11/20/24 18:00 11/20/24 18:53 Temperature 98.2 F 97.9 F Temperature Source Oral Oral Pulse Rate 97 72 73 Respiratory Rate 18 10 L 12 Respiratory Effort Respiratory Depth Respiratory Pattern Blood Pressure 118/76 119/82 H 107/84 H Blood Pressure Mean 90 94 91 Pulse Ox 97 94 100 Oxygen Delivery Method Room Air Nasal Cannula Nasal Cannula Oxygen Flow Rate (L/min) 2 2 11/20/24 18:54 11/20/24 19:02 11/20/24 19:17 Temperature 98.7 F 98.7 F 98.6 F Temperature Source Oral Oral Oral Pulse Rate 88 78 76 Respiratory Rate 18 16 18 Respiratory Effort Respiratory Depth Respiratory Pattern Blood Pressure 105/78 108/78 118/81 H Blood Pressure Mean 87 88 93 Pulse Ox 98 98 100 Oxygen Delivery Method Room Air Room Air Room Air Oxygen Flow Rate (L/min) 11/20/24 19:32 11/20/24 20:02 11/20/24 21:00 Temperature 98.6 F Temperature Source Oral Pulse Rate 77 80 82 Respiratory Rate 18 14 18 Respiratory Effort Respiratory Depth Respiratory Pattern Blood Pressure 121/88 H 115/79 117/80 Blood Pressure Mean 99 91 92 Pulse Ox 100 99 98 Oxygen Delivery Method Room Air Room Air Room Air Oxygen Flow Rate (L/min) 11/20/24 22:00 11/20/24 23:00 11/21/24 00:00 Temperature Temperature Source Pulse Rate 88 89 86 Respiratory Rate 18 18 18 Respiratory Effort Respiratory Depth Respiratory Pattern Blood Pressure 102/81 H 97/73 100/72 Blood Pressure Mean 88 81 81 Pulse Ox 98 99 100 Oxygen Delivery Method Room Air Room Air Room Air Oxygen Flow Rate (L/min) 11/21/24 01:00 11/21/24 01:32 11/21/24 02:00 Temperature 98.2 F Temperature Source Pulse Rate 80 83 81 Respiratory Rate 16 18 18 Respiratory Effort Respiratory Depth Respiratory Pattern Blood Pressure 98/72 102/75 101/73 Blood Pressure Mean 80 84 82 Pulse Ox 98 98 98 Oxygen Delivery Method Room Air Room Air Oxygen Flow Rate (L/min) Weight Weight: 183 lb 10.321 oz Body Mass Index (BMI) 28.8 Physical Exam Narrative General: Alert, Oriented x3, Cooperative, No apparent distress HEENT: Atraumatic, PERRLA, EOMI, Normocephalic Oral: Dry mucosa Neck: Supple, No JVD Lungs: Clear to auscultation, Normal air movement, No rhonchi, No wheeze, No rales Cardiovascular: Regular rate, Regular Rhythm, Normal S1, Normal S2, No murmurs Abdomen: Soft, Non Tender, Non-Distended, No Hepato-splenomegaly, ostomy Extremities: No edema, Capillary Refill Less than 3 Seconds Skin: Left foot is dressed status post transmetatarsal amputation, second toe gangrene on the right Musculoskeletal: No Tenderness to Palpation of Joints or Extremities Neurological: No focal neurological deficits, Motor Exam 5/5 strength throughout, Sensory exam intact to light touch and pain Psych/Mental Status: Normal Affect, Appropriate Results Lab / Micro Data 11/20/24 15:12 11/20/24 15:12 Labs: Laboratory Results - last 24 hr 11/20/24 15:12: WBC 15.2 H, RBC 5.05, Hgb 12.5, Hct 40.4, MCV 80.0 L, MCH 24.8 L , MCHC 30.9 L, RDW Std Deviation 47.2 H, RDW Coeff of Chris 16.7 H, Plt Count 764 H*, MPV 8.8, Immature Gran % (Auto) 0.800, Neut % (Auto) 79.9 H, Lymph % (Auto) 15.3 L, [place] % (Auto) 3.3, Eos % (Auto) 0.3, Baso % (Auto) 0.4, Absolute Neuts (auto) 12.1 H, Absolute Lymphs (auto) 2.32, Nucleated RBC % 0, Diff Path Review May , Platelet Estimate MKD INC, PT 14.8, INR 1.1, APTT 30.1, Sodium 129 L, Potassium 4.4, Chloride 88 L, Carbon Dioxide 15.2 L, Anion Gap 25 H, BUN 36 H, C reatinine 4.32 H, Estim Creat Clear Calc 19.01 L, Est GFR (MDRD) Non-Af 13 L, B UN/Creatinine Ratio 8.4 L, Glucose 249 H, Lactic Acid 6.1 H*, Calcium 10.8, Total Bilirubin 0.82, AST 106 H, ALT 127 H, Alkaline Phosphatase 337 H, Troponin T High Sens 38 H D, Total Protein 10.1 H, Albumin 4.7, Globulin 5.5 H, Albumin/Globulin Ratio 0.9 11/20/24 17:22: Troponin T Hi Sens 2 Hr 32 H 11/20/24 19:31: Lactic Acid 1.7, Troponin T Hi Sens 4Hr 32 H Micro: Microbiology 11/20/24 15:19 Mucosa - Nose SARS-CoV-2, Influenza & RSV (PCR) - Final Imaging Radiology Impression Chest/Abdomen/Pelvis CTA 11/20/24 15:30 IMPRESSION: 1. No pulmonary embolism is identified. Some of the distal pulmonary arteries cannot be evaluated due to suboptimal opacification. 2. No aortic dissection or aneurysm. No contrast extravasation to suggest active bleed. 3. Left lower abdominal quadrant colostomy. Constipation. No bowel obstruction or pneumoperitoneum. 4. 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 5. Hepatomegaly with fatty infiltration. 6. Umbilical hernia containing fat. Reading Location: [facility] Foot X-Ray 11/20/24 16:10 IMPRESSION: Status post TMA. Haziness of the surgical margins may be normal postoperative changes due to recent surgery. [facility] Assessment & Plan Assessment/Plan (1) Acute kidney injury: (2) Acute hyponatremia: PLAN: Plan 1. Acute renal failure secondary to dehydration from high ostomy output as a result of an extensive small bowel resection due to SMA thrombosis/hyponatremia ?Continue with IV fluids ?Sodium is 129 ? She does have a metabolic acidosis with a bicarb of 15.2 and a gap of 25 ? Leukocytosis likely related to dehydration ? Will consult wound care ? All of her surgeries have occurred including [facility] where she is pending transfer ? Renal function on admission is 4.32 baseline creatinine is 1-1.2 ? Will resume her Imodium and other medications when verified 2. 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 She still has a gangrenous toe on her right foot that is being monitored as an outpatient 3. Bipolar disorder ? Her home medications are still pending verification, however once verified can restart ? Stable DVT: Heparin Cheryl evans was evaluated in the Emergency Department at [facility] on 11/21/2024. At the time of evaluation, transfer to a tertiary hospital was felt to be in the patient's best interest due to lack of resources. Attempts were made by the Emergency Department and/or the Hospitalist team to get Cheryl Evans to the appropriate level of care. Although the pt is accepted for transfer to [facility], there are no staffed beds currently available. Given the need for ongoing medical care, Cheryl evans will be admitted to [facility] on 11/21/2024, and care will be provided here until [facility] has an available staffed bed. Pt and/or family are aware of the transfer, the reasoning behind the need for transfer, and that until a staffed bed becomes available, we will provide evidence-based care to the best of our abilities, with the limitations of care here being fully addressed. Charges/Coding Visit Charges Inpatient E&M: 14809 Init Hosp L3
[2024-11-21] MEDS: 0.9% Normal Saline (1000mL) 1,000 ML 125 ML IV ×2 (03:56→10:25)
[2024-11-21 05:40] LABS: Mucous, Urine 0 SEEN /hpf (<or=2+); Red Blood Cells-Urine 0 SEEN /hpf (0-5)
[2024-11-21 05:42] LABS: Color, Urine Yellow (Yellow); Glucose, Dipstick Normal (Normal); Ketone-Dipstick Negative (Negative); Leukocyte Esterase-Dipstick 25 /ul (Negative); Nitrite-Dipstick Negative (Negative); Occult Blood-Urine Negative /ul (Negative); Protein-Dipstick 30 mg/dl (Negative); Specific Gravity, Urine 1.015 (1.002-1.030); Urine Bilirubin Dipstick Negative (Negative); Urine Clarity Clear (Clear); Urine Urobilinogen Normal (Normal)
[2024-11-21 05:57] LABS: Bacteria 2+ /hpf (None Seen); Squamous Epithelial Cells - UA 0-5 SEEN /hpf (5-10); White Blood Cells 10-25 SEEN /hpf (0-5); Yeast-Urine 1+ /hpf (None Seen)
[2024-11-21] MEDS: Heparin Injection (Vial) 5,000 UNIT/ML VIAL 5000 UNIT SC ×3 (06:34→21:50)
[2024-11-21 06:44] LABS: Absolute Lymphocyte Count 2.24 X10^3/uL (0.83-4.51); Absolute Neutrophil Count 5.3 X10^3/uL (2.0-7.7); Basophil# 0.05 X10^3/uL; Basophil% 0.6 % (0-1); Eosinophil# 0.16 X10^3/uL; Eosinophils% 1.9 % (0-5); Hematocrit 30.2 % (37-47); Hemoglobin 9.5 g/dL (12.0-15.0); Lymphocyte # 2.24 X10^3/ul (0.83-4.51); Lymphocyte % 26.5 % (19-41); Mean Corp Hgb Conc 31.5 g/dL (32-36); Mean Corpuscular Hgb 24.7 pg (27.0-32.0); Mean Corpuscular Volume 78.6 fL (81-99); Mean Platelet Vol. 8.8 fl (6.2-12.0); Monocyte# 0.72 X10^3/uL; Monocyte% 8.5 % (0-10); NRBC Flagged by Analyzer 0 % (0-5); Neutrophil # 5.25 X10^3/uL (2.7-7.7); Platelet Count 423 K/mm3 (150-450); RBC Distribution Width CV 16.3 % (11.6-14.6); RBC Distribution Width SD 46.2 fl (35.1-43.9); Red Blood Count 3.84 M/mm3 (4.2-5.4); White Blood Count 8.5 K/mm3 (4.4-11.0)
[2024-11-21 07:46] LABS: Anion Gap 17 (5-15); BUN 32 mg/dL (4-19); BUN/Creat Ratio 11.9 RATIO (10-20); Calcium,Total 9.1 mg/dL (7.6-11.0); Carbon Dioxide 15.6 mmol/L (21.0-32.0); Chloride 95 mmol/L (98-108); Creatinine, Serum 2.69 mg/dL (0.70-1.20); EST Glomerular Filtration Rate 22 (>60); Glucose 127 mg/dL (70-99); Potassium 3.6 mmol/L (3.3-5.1); Sodium Level 128 mmol/L (133-145)
--- NOTE | 2024-11-21 08:57 | WOUNDNOTE ---
wound photo: left foot
--- NOTE | 2024-11-21 08:58 | WOUNDNOTE ---
wound photo: left heel
--- NOTE | 2024-11-21 08:58 | WOUNDNOTE ---
wound photo: left foot
--- NOTE | 2024-11-21 08:59 | WOUNDNOTE ---
wound photo: right 2nd toe
--- NOTE | 2024-11-21 09:27 | CASEMGMT ---
Insurance review for hospitals In-network with [facility] insurance if transfer is recommended is as follows: [facility], [facility], [place], [facility], [facility], [facility], , [facility], [facility], and [place]. Dayan Brizuela, Discharge Planning Asst.
--- NOTE | 2024-11-21 09:42 | PCM.PN.BLA ---
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 Initial assessment including history and physical diagnostic data analytics analyst orders reviewed will follow
[2024-11-21] MEDS: Escitalopram Oxalate 20 MG Tablet PO (10:25)
[2024-11-21] MEDS: oxyCODONE 5 MG Tablet PO ×3 (10:25→22:48)
[2024-11-21] MEDS: Diphenoxylate/Atrop 1 Tablet 2 TABLET PO ×4 (10:25→21:59)
[2024-11-21] MEDS: Pantoprazole Sodium 40 MG Tablet PO (10:25)
--- NOTE | 2024-11-21 10:57 | WOUNDNOTE ---
Assisted patient in changing the ostomy appliance this am. Pt has been cutting the opening too large. there is some mild skin irritation. explained to patient that she needs to be cutting it more oval than round to protect the skin. Pt did state that she was able to get her supplies from [facility] and should be getting another shipment of supplies today. Pt has been doing well with changing the appliances. will continue to monitor as pt is in hospital.
[2024-11-21] MEDS: HYDROmorphone 1 MG/ML Syringe IV ×3 (12:41→20:50)
[2024-11-21] MEDS: Ferrous Sulfate 325 MG Tablet PO (12:41)
[2024-11-21] MEDS: Midodrine HCl 5 MG Tablet 10 MG PO ×2 (12:41→17:08)
--- NOTE | 2024-11-21 13:24 | CASEMGMT ---
NATHANAEL SHEIKH Readmission Note Previous Admission: 11/13/24-11/16/24 Diagnosis: sepsis and dehydration DC Disposition: Home Current Admission: Admitted 11/21/24 Current Diagnosis: dehydration and JONATAN Pt dc'd from previous admission to home to her parents with their assistance. Pt had been admitted d/t worsening gangrene d/t arotic thrombus several mos ago. Pt was seen by therapist asst who completed a transmetatarsal amputation to the L foot and debridement to the L heel without complications. Pt then returned to [facility] ER with increased outpt to ostomy and not feeling well. Physician felt best for pt to be trf'd to [facility] where her surgeon is that performed her bowel resection with ostomy as pt is dehydrated with abn labs. Pt is currently awaiting a bed. NATHANAEL SHEIKH into pt room, pt states she did not get her lovenox as [facility] did not have it. She states they gave her no estimated time frame in getting it in stock and she did not ask for it to be transferred. Pt was supposed to have seen Dr. Arreaga tomorrow in the office and she will call to cancel this appt. Pt had been using a FWW and did order ostomy supplies. The supplies are supposed to be delivered today. Pt denies any needs at this time. DC Plan: TRF to [facility]
[2024-11-21] MEDS: 0.9% Normal Saline (1000mL) 1,000 ML 250 ML IV ×2 (17:43→21:43)
[2024-11-21] MEDS: 0.9% Saline Lock 10 ML Syringe IV (20:50)
[2024-11-21] MEDS: OLANZapine 10 MG Tablet 20 MG PO (21:54)
[2024-11-22] MEDS: 0.9% Normal Saline (1000mL) 1,000 ML 250 ML IV ×6 (01:21→21:11)
[2024-11-22 05:10] VITALS: BP 105/72; PULSE 83; RESP 16; TEMP 36.8; O2SAT 99
[2024-11-22] MEDS: oxyCODONE 5 MG Tablet PO ×4 (05:14→21:11)
[2024-11-22] MEDS: Acetaminophen 325 MG Tablet 650 MG PO ×2 (05:14→15:53)
[2024-11-22] MEDS: Heparin Injection (Vial) 5,000 UNIT/ML VIAL 5000 UNIT SC ×3 (05:14→21:02)
[2024-11-22 06:12] LABS: Absolute Lymphocyte Count 1.71 X10^3/uL (0.83-4.51); Absolute Neutrophil Count 3.9 X10^3/uL (2.0-7.7); Basophil# 0.04 X10^3/uL; Basophil% 0.6 % (0-1); Eosinophil# 0.19 X10^3/uL; Hematocrit 27.7 % (37-47); Hemoglobin 8.7 g/dL (12.0-15.0); Lymphocyte # 1.71 X10^3/ul (0.83-4.51); Lymphocyte % 26.9 % (19-41); Mean Corp Hgb Conc 31.4 g/dL (32-36); Mean Corpuscular Hgb 25.1 pg (27.0-32.0); Mean Corpuscular Volume 79.8 fL (81-99); Mean Platelet Vol. 8.8 fl (6.2-12.0); Monocyte# 0.52 X10^3/uL; Monocyte% 8.2 % (0-10); NRBC Flagged by Analyzer 0 % (0-5); Neutrophil # 3.87 X10^3/uL (2.7-7.7); Platelet Count 351 K/mm3 (150-450); RBC Distribution Width CV 16.2 % (11.6-14.6); RBC Distribution Width SD 46.9 fl (35.1-43.9); Red Blood Count 3.47 M/mm3 (4.2-5.4); White Blood Count 6.4 K/mm3 (4.4-11.0)
[2024-11-22 06:48] LABS: Magnesium 1.3 mg/dL (1.5-2.2); Phosphorus 2.7 mg/dL (2.7-4.5)
[2024-11-22 06:49] LABS: Anion Gap 11 (5-15); BUN 18 mg/dL (4-19); BUN/Creat Ratio 14.4 RATIO (10-20); Calcium,Total 8.5 mg/dL (7.6-11.0); Carbon Dioxide 18.4 mmol/L (21.0-32.0); Chloride 107 mmol/L (98-108); Creatinine, Serum 1.24 mg/dL (0.70-1.20); EST Glomerular Filtration Rate 56 (>60); Estimated Creatinine Clearance 66.39 ml/min (50-250); Glucose 101 mg/dL (70-99); Potassium 3.4 mmol/L (3.3-5.1); Sodium Level 137 mmol/L (133-145)
[2024-11-22 07:39] VITALS: BP 98/61; PULSE 74; RESP 14; TEMP 36.3; O2SAT 100
--- NOTE | 2024-11-22 07:43 | PCM.PN.HOSP ---
Reason for Visit Reason for Visit: Diagnoses Hypo-osmolality and hyponatremia (11/21/24) Acute kidney failure, unspecified (11/21/24) Subjective Subjective Patient is a 76-year-old lady admitted with progressive generalized weakness with associated confusion and hallucination. Workup did reveal presence of acute cystitis admitted to regular nursing floor for further management Objective Data Objective Data Vital Signs: Vital Signs Temp Pulse Resp BP Pulse Ox O2 Del Method O2 Flow Rate 97.4 F L 74 14 98/61 100 Room Air 2 11/22/24 07:39 11/22/24 07:39 11/22/24 07:39 11/22/24 07:39 11/22/24 07:39 11/22/24 07:39 11/20/24 18:53 Oxygen Flow Rate (L/min) 2 Oxygen Delivery Method Room Air Weight: 83.7 kg Body Mass Index (BMI) 28.9 Intake & Output: Intake and Output for Last 24 Hours 11/20/24 11/21/24 11/22/24 23:59 23:59 23:59 Intake Total 2900 / 2900 4655.42 / 4655.42 2875.00 / 2875.00 Output Total 2600 / 2600 Balance 2900 / 2900 2055.42 / 2055.42 2875.00 / 2875.00 Lab / Micro Data 11/22/24 05:49 11/22/24 05:49 Labs: Laboratory Results - last 24 hr 11/21/24 05:48: Sodium 128 L, Potassium 3.6, Chloride 95 L, Carbon Dioxide 15.6 L, Anion Gap 17 H, BUN 32 H, Creatinine 2.69 H, Estim Creat Clear Calc 30.60 L, Est GFR (MDRD) Non-Af 22 L, BUN/Creatinine Ratio 11.9, Glucose 127 H, Calcium 9.1 11/22/24 05:49: WBC 6.4, RBC 3.47 L, Hgb 8.7 L, Hct 27.7 L, MCV 79.8 L, MCH 25.1 L, MCHC 31.4 L, RDW Std Deviation 46.9 H, RDW Coeff of Chris 16.2 H, Plt Count 351, MPV 8.8, Immature Gran % (Auto) 0.300, Neut % (Auto) 61.0, Lymph % (Auto) 26.9, [place] % (Auto) 8.2, Eos % (Auto) 3.0, Baso % (Auto) 0.6, Absolute Neuts (auto) 3.9, Absolute Lymphs (auto) 1.71, Nucleated RBC % 0, Sodium 137, Potassium 3.4, Chloride 107, Carbon Dioxide 18.4 L, Anion Gap 11, BUN 18, Creatinine 1.24 H, Estim Creat Clear Calc 66.39, Est GFR (MDRD) Non-Af 56 L, BUN/Creatinine Ratio 14.4, Glucose 101 H, Calcium 8.5, Phosphorus 2.7, Magnesium 1.3 L Micro: Microbiology 11/20/24 15:19 Mucosa - Nose SARS-CoV-2, Influenza & RSV (PCR) - Final Physical Exam Narrative Patient is a 76-year-old lady admitted with progressive generalized weakness with associated confusion and hallucination. Workup did reveal presence of acute cystitis admitted to regular nursing floor for further management Assessment & Plan Assessment/Plan (1) Acute kidney injury: (2) Acute hyponatremia: PLAN: Plan Patient is a 76-year-old lady admitted with progressive generalized weakness with associated confusion and hallucination. Workup did reveal presence of acute cystitis admitted to regular nursing floor for further management 1. Acute kidney injury ? Secondary to high output from patient osteotomy. Patient started on aggressive IV fluid resuscitation. Arrangements were made for patient to be transferred to the [facility] where patient underwent extensive bowel resection in July following her SMA thrombosis ? 11/22/2024 creatinine down to 1.2 from 2. Status post trans metatarsal amputation, left foot and debridement of heel wound -on 11/15/24 on account of gangrene left foot by Megan 3. Bipolar disorder ? Patient is on olanzapine plan is to continue with home meds 4. GERD ? Patient is on PPI 5. Anemia ? Secondary to chronic disorder monitoring H&H and transfuse if patient becomes symptomatic or hemoglobin falls below 7 6. History of SMA thrombosis ? Status post extensive bowel resection in July with resultant short-bowel syndrome 7. Anion gap metabolic acidosis ? Secondary to severe dehydration. Patient is on IV fluid with subsequent monitoring of electrolytes ordered 8. Hyponatremia Secondary to hypovolemic hyponatremia patient is on IV fluid ? 11/22/2024 sodium levels improved to 137 with aggressive IV fluid resuscitation 9. Elevated troponin ? Secondary to suspected demand ischemia from patient's severe dehydration 10.DVT prophylaxis ? Placed on subcu heparin 11. Hypokalemia -Corrected per protocol, repeat labs ordered in a.m. to evaluate response to therapy Charges/Coding Visit Charges Inpatient E&M: 67095 Subs Hosp L2
[2024-11-22] MEDS: Potassium Chloride Oral Tablet 20 MEQ 40 MEQ PO (07:45)
[2024-11-22] MEDS: Midodrine HCl 5 MG Tablet 10 MG PO ×3 (07:45→16:06)
[2024-11-22] MEDS: HYDROmorphone 1 MG/ML Syringe IV ×5 (07:46→23:32)
[2024-11-22] MEDS: Pantoprazole Sodium 40 MG Tablet PO (07:49)
[2024-11-22] MEDS: Escitalopram Oxalate 20 MG Tablet PO (07:49)
[2024-11-22] MEDS: Diphenoxylate/Atrop 1 Tablet 2 TABLET PO ×4 (09:15→21:10)
--- NOTE | 2024-11-22 11:22 | PN.HOSP_ITS ---
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 with recurrent lightheadedness and dizziness from high output osteotomy who is currently awaiting transfer to the [facility] Objective Data Objective Data Vital Signs: Vital Signs Temp Pulse Resp BP Pulse Ox O2 Del Method O2 Flow Rate 97.4 F L 74 14 98/61 100 Room Air 2 11/22/24 07:39 11/22/24 07:39 11/22/24 07:39 11/22/24 07:39 11/22/24 07:39 11/22/24 07:39 11/20/24 18:53 Oxygen Flow Rate (L/min) 2 Oxygen Delivery Method Room Air Weight: 83.7 kg Body Mass Index (BMI) 28.9 Intake & Output: Intake and Output for Last 24 Hours 11/20/24 11/21/24 11/22/24 23:59 23:59 23:59 Intake Total 2900 / 2900 4655.42 / 4655.42 3875.00 / 3875.00 Output Total 2600 / 2600 Balance 2900 / 2900 2055.42 / 2055.42 3875.00 / 3875.00 Lab / Micro Data 11/22/24 05:49 11/22/24 05:49 Labs: Laboratory Results - last 24 hr 11/22/24 05:49: WBC 6.4, RBC 3.47 L, Hgb 8.7 L, Hct 27.7 L, MCV 79.8 L, MCH 25.1 L, MCHC 31.4 L, RDW Std Deviation 46.9 H, RDW Coeff of Chris 16.2 H, Plt Count 351, MPV 8.8, Immature Gran % (Auto) 0.300, Neut % (Auto) 61.0, Lymph % (Auto) 26.9, [place] % (Auto) 8.2, Eos % (Auto) 3.0, Baso % (Auto) 0.6, Absolute Neuts (auto) 3.9, Absolute Lymphs (auto) 1.71, Nucleated RBC % 0, Sodium 137, Potassium 3.4, Chloride 107, Carbon Dioxide 18.4 L, Anion Gap 11, BUN 18, C reatinine 1.24 H, Estim Creat Clear Calc 66.39, Est GFR (MDRD) Non-Af 56 L, BUN/Creatinine Ratio 14.4, Glucose 101 H, Calcium 8.5, Phosphorus 2.7, Magnesium 1.3 L Micro: Microbiology 11/20/24 15:19 Mucosa - Nose SARS-CoV-2, Influenza & RSV (PCR) - Final Physical Exam Narrative GENERAL: cooperative HEENT: Atraumatic; normocephalic EYES; Anicteric, Normal Conjunctiva NECK; supple, normal thyroid, RESPIRATORY: Diminished to auscultation CARDIOVASCULAR: Regular S1 S2, GI: soft, normoactive bowel sounds, : No Renal angle tenderness; EXTREMITIES: Left foot in surgical dressing MUSCULOSKELETAL: no muscle wasting NEURO: Awake; no lateralizing signs. 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 Acute kidney injury ? Secondary to high output from patient osteotomy. Patient started on aggressive IV fluid resuscitation. Arrangements were made for patient to be transferred to the [facility] where patient underwent extensive bowel resection in July following her SMA thrombosis ? 11/22/2024 creatinine down to 1.2 from 2. Status post trans metatarsal amputation, left foot and debridement of heel wound -on 11/15/24 on account of gangrene left foot by Megan 3. Bipolar disorder ? Patient is on olanzapine plan is to continue with home meds 4. GERD ? Patient is on PPI 5. Anemia ? Secondary to chronic disorder monitoring H&H and transfuse if patient becomes symptomatic or hemoglobin falls below 7 6. History of SMA thrombosis ? Status post extensive bowel resection in July with resultant short-bowel syndrome 7. Anion gap metabolic acidosis ? Secondary to severe dehydration. Patient is on IV fluid with subsequent monitoring of electrolytes ordered 8. Hyponatremia Secondary to hypovolemic hyponatremia patient is on IV fluid ? 11/22/2024 sodium levels improved to 137 with aggressive IV fluid resuscitation 9. Elevated troponin ? Secondary to suspected demand ischemia from patient's severe dehydration 10.DVT prophylaxis ? Placed on subcu heparin 11. Hypokalemia -Corrected per protocol, repeat labs ordered in a.m. to evaluate response to therapy
[2024-11-22] MEDS: Ferrous Sulfate 325 MG Tablet PO (12:06)
[2024-11-22] MEDS: 0.9% Saline Lock 10 ML Syringe IV ×2 (13:20→17:01)
[2024-11-22 13:30] VITALS: BP 104/68; PULSE 84; RESP 14; TEMP 36.5; O2SAT 100
[2024-11-22 20:09] VITALS: BP 105/65; PULSE 69; RESP 16; TEMP 36.5; O2SAT 100
[2024-11-22] MEDS: OLANZapine 10 MG Tablet 20 MG PO (21:02)
[2024-11-22 23:29] VITALS: BP 104/69; PULSE 87; RESP 16; TEMP 36.6; O2SAT 99
[2024-11-23] MEDS: 0.9% Normal Saline (1000mL) 1,000 ML 250 ML IV ×2 (01:11→05:12)
[2024-11-23] MEDS: Acetaminophen 325 MG Tablet 650 MG PO (02:16)
[2024-11-23] MEDS: oxyCODONE 5 MG Tablet PO ×2 (02:17→06:29)
[2024-11-23 03:41] VITALS: BP 102/65; PULSE 79; RESP 16; TEMP 36.7; O2SAT 100
[2024-11-23] MEDS: HYDROmorphone 1 MG/ML Syringe IV (03:44)
[2024-11-23 06:05] LABS: Absolute Lymphocyte Count 2.05 X10^3/uL (0.83-4.51); Absolute Neutrophil Count 2.5 X10^3/uL (2.0-7.7); Basophil# 0.03 X10^3/uL; Basophil% 0.6 % (0-1); Eosinophils% 3.9 % (0-5); Hematocrit 24.4 % (37-47); Hemoglobin 7.5 g/dL (12.0-15.0); Lymphocyte # 2.05 X10^3/ul (0.83-4.51); Lymphocyte % 39.5 % (19-41); Mean Corp Hgb Conc 30.7 g/dL (32-36); Mean Corpuscular Volume 81.3 fL (81-99); Mean Platelet Vol. 8.8 fl (6.2-12.0); Monocyte# 0.44 X10^3/uL; Monocyte% 8.5 % (0-10); NRBC Flagged by Analyzer 0 % (0-5); Neutrophil # 2.45 X10^3/uL (2.7-7.7); Neutrophil % 47.1 % (47-70); POSITIVE MORPHOLOGY YES; Platelet Count 299 K/mm3 (150-450); RBC Distribution Width CV 16.8 % (11.6-14.6); RBC Distribution Width SD 48.7 fl (35.1-43.9); White Blood Count 5.2 K/mm3 (4.4-11.0)
[2024-11-23 06:07] LABS: Differential Indicated SCAN CRITERIA MET
[2024-11-23] MEDS: Heparin Injection (Vial) 5,000 UNIT/ML VIAL 5000 UNIT SC (06:30)
[2024-11-23 06:33] LABS: Anion Gap 9 (5-15); BUN 7 mg/dL (4-19); BUN/Creat Ratio 7.9 RATIO (10-20); Calcium,Total 7.5 mg/dL (7.6-11.0); Carbon Dioxide 18.5 mmol/L (21.0-32.0); Chloride 111 mmol/L (98-108); Creatinine, Serum 0.91 mg/dL (0.70-1.20); EST Glomerular Filtration Rate 81 (>60); Estimated Creatinine Clearance 90.47 ml/min (50-250); Glucose 111 mg/dL (70-99); Potassium 3.2 mmol/L (3.3-5.1); Sodium Level 139 mmol/L (133-145)
--- NOTE | 2024-11-23 07:41 | PCM.PN.HOSP ---
Reason for Visit Reason for Visit: Diagnoses Hypo-osmolality and hyponatremia (11/21/24) Acute kidney failure, unspecified (11/21/24) Subjective Subjective Patient kidney back to baseline. Patient will be assessed for discharge Objective Data Objective Data Vital Signs: Vital Signs Temp Pulse Resp BP Pulse Ox O2 Del Method O2 Flow Rate 98.1 F 79 16 102/65 100 Room Air 2 11/23/24 03:41 11/23/24 03:41 11/23/24 03:41 11/23/24 03:41 11/23/24 03:41 11/23/24 03:41 11/20/24 18:53 Oxygen Flow Rate (L/min) 2 Oxygen Delivery Method Room Air Weight: 83.7 kg Body Mass Index (BMI) 28.9 Intake & Output: Intake and Output for Last 24 Hours 11/21/24 11/22/24 11/23/24 23:59 23:59 23:59 Intake Total 4655.42 / 4655.42 8287.50 / 8287.50 2400 / 2400 Output Total 2600 / 2600 2900 / 2900 1000 / 1000 Balance 2055.42 / 2055.42 5387.50 / 5387.50 1400 / 1400 Lab / Micro Data 11/23/24 05:34 11/23/24 05:34 Labs: Laboratory Results - last 24 hr 11/23/24 05:34: WBC 5.2, RBC 3.00 L, Hgb 7.5 L, Hct 24.4 L, MCV 81.3, MCH 25.0 L, MCHC 30.7 L, RDW Std Deviation 48.7 H, RDW Coeff of Chris 16.8 H, Plt Count 299, MPV 8.8, Immature Gran % (Auto) 0.400, Neut % (Auto) 47.1, Lymph % (Auto) 39.5, [place] % (Auto) 8.5, Eos % (Auto) 3.9, Baso % (Auto) 0.6, Absolute Neuts (auto) 2.5, Absolute Lymphs (auto) 2.05, Nucleated RBC % 0, Sodium 139, Potassium 3.2 L, Chloride 111 H, Carbon Dioxide 18.5 L, Anion Gap 9, BUN 7, Creatinine 0.91, Estim Creat Clear Calc 90.47, Est GFR (MDRD) Non-Af 81, BUN/Creatinine Ratio 7.9 L, Glucose 111 H, Calcium 7.5 L Micro: Microbiology 11/20/24 15:19 Blood Culture (Wb) - Arm Left Blood Culture - Preliminary No growth in 48 hours. 11/20/24 15:12 Blood Culture (Wb) - Anticubital Right Blood Culture - Preliminary No growth in 48 hours. 11/20/24 15:19 Mucosa - Nose SARS-CoV-2, Influenza & RSV (PCR) - Final Physical Exam Narrative GENERAL: cooperative HEENT: Atraumatic; normocephalic EYES; Anicteric, Normal Conjunctiva NECK; supple, normal thyroid, RESPIRATORY: Diminished to auscultation CARDIOVASCULAR: Regular S1 S2, GI: soft, normoactive bowel sounds, : No Renal angle tenderness; EXTREMITIES: Left foot in surgical dressing MUSCULOSKELETAL: no muscle wasting NEURO: Awake; no lateralizing signs. 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 Acute kidney injury ? Secondary to high output from patient osteotomy. Patient started on aggressive IV fluid resuscitation. Arrangements were made for patient to be transferred to the [facility] where patient underwent extensive bowel resection in July following her SMA thrombosis ? 11/22/2024 creatinine down to 1.2 ? 11/23/2024; patient kidney back to baseline patient will be discharged home 2. Status post trans metatarsal amputation, left foot and debridement of heel wound -on 11/15/24 on account of gangrene left foot by Megan 3. Bipolar disorder ? Patient is on olanzapine plan is to continue with home meds 4. GERD ? Patient is on PPI 5. Anemia ? Secondary to chronic disorder monitoring H&H and transfuse if patient becomes symptomatic or hemoglobin falls below 7 6. History of SMA thrombosis ? Status post extensive bowel resection in July with resultant short-bowel syndrome ? 11/23/2024; patient has been instructed to call his surgeon at [facility] to schedule outpatient follow-up 7. Anion gap metabolic acidosis ? Secondary to severe dehydration. Patient is on IV fluid with subsequent monitoring of electrolytes ordered 8. Hyponatremia Secondary to hypovolemic hyponatremia patient is on IV fluid ? 11/22/2024 sodium levels improved to 137 with aggressive IV fluid resuscitation 9. Elevated troponin ? Secondary to suspected demand ischemia from patient's severe dehydration 10.DVT prophylaxis ? Placed on subcu heparin 11. Hypokalemia -Corrected per protocol, repeat labs ordered in a.m. to evaluate response to therapy ? 11/23/2024; additional potassium replacement given
[2024-11-23 09:04] VITALS: BP 95/63; PULSE 91; RESP 14; TEMP 36.7; O2SAT 99
[2024-11-23] MEDS: Escitalopram Oxalate 20 MG Tablet PO (09:06)
[2024-11-23] MEDS: Potassium Chloride Oral Tablet 20 MEQ 40 MEQ PO ×3 (09:06→11:46)
[2024-11-23] MEDS: Midodrine HCl 5 MG Tablet 10 MG PO ×2 (09:06→11:45)
[2024-11-23] MEDS: Pantoprazole Sodium 40 MG Tablet PO (09:14)
[2024-11-23] MEDS: Diphenoxylate/Atrop 1 Tablet 2 TABLET PO (09:14)
[2024-11-23 09:45] LABS: Atypical Lymphocyte 1+ %
[2024-11-23 09:46] LABS: Ovalocyte 1+; Platelet Estimate A (ADEQ)
--- NOTE | 2024-11-23 10:10 | CASEMGMT ---
Addendum entered by Laura Shafer 11/23/24 11:32: TC to [facility] [employer], spoke with Jay, he is aware pt would like meds delivered to the room. Original Note: Per hospitalist, pt will dc to home. TC to [facility] [employer] to see if they have enoxaparin. Received confirmation that they have enough for pt to get through the weekend and then they will have an order in on Tuesday. NATHANAEL CM into pt room, pt agreeable to getting lovenox here at [facility] and is aware she will need to come back on Tuesday for further doses. Pt would like meds delivered to room. Pt denies any further homegoing needs.
--- NOTE | 2024-11-23 11:22 | PCM.DC.SUM ---
Providers Date of Admission: 11/21/24 Date of Discharge: 11/23/24 Primary Care Physician: Dr. 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 Acute kidney injury ? Secondary to high output from patient osteotomy. Patient started on aggressive IV fluid resuscitation. Arrangements were made for patient to be transferred to the [facility] where patient underwent extensive bowel resection in July following her SMA thrombosis ? 11/22/2024 creatinine down to 1.2 ? 11/23/2024; patient kidney back to baseline patient will be discharged home. Did educate the patient on the need to keep hydrated to match up with significant losses from her high output ostomy 2. Status post trans metatarsal amputation, left foot and debridement of heel wound -on 11/15/24 on account of gangrene left foot by Megan 3. Bipolar disorder ? Patient is on olanzapine plan is to continue with home meds 4. GERD ? Patient is on PPI 5. Anemia ? Secondary to chronic disorder monitoring H&H and transfuse if patient becomes symptomatic or hemoglobin falls below 7 6. History of SMA thrombosis ? Status post extensive bowel resection in July with resultant short-bowel syndrome ? 11/23/2024; patient has been instructed to call his surgeon at [facility] to schedule outpatient follow-up 7. Anion gap metabolic acidosis ? Secondary to severe dehydration. Patient is on IV fluid with subsequent monitoring of electrolytes ordered 8. Hyponatremia Secondary to hypovolemic hyponatremia patient is on IV fluid ? 11/22/2024 sodium levels improved to 137 with aggressive IV fluid resuscitation 9. Elevated troponin ? Secondary to suspected demand ischemia from patient's severe dehydration 10.DVT prophylaxis ? Placed on subcu heparin 11. Hypokalemia -Corrected per protocol, repeat labs ordered in a.m. to evaluate response to therapy ? 11/23/2024; additional potassium replacement given Medications at Discharge Home Medications escitalopram oxalate 20 mg tablet 20 mg PO DAILY ASK PCP 04/27/22 olanzapine 20 mg tablet 20 mg PO QHS ASK PCP 06/20/23 omeprazole 40 mg capsule,delayed release 40 mg PO DAILY ASK PCP 06/20/23 ferrous sulfate 325 mg (65 mg iron) tablet 325 mg PO DAILY ASK PCP #30 tabs 07/30/24 calcium polycarbophil 625 mg tablet (Fiber (calcium polycarbophil)) 1,250 mg (2 x 625 mg) PO TID see dr #90 tabs 11/05/24 diphenoxylate-atropine 2.5 mg-0.025 mg tablet 2 tab PO 4X/DAY slow down bowels #120 tabs 11/05/24 loperamide 2 mg capsule 2 mg PO Q6 PRN Diarrhea #0 caps 11/05/24 midodrine 5 mg tablet 10 mg (2 x 5 mg) PO TIDCM bp #90 tabs 11/05/24 hydromorphone 4 mg tablet (Dilaudid) 4 mg PO Q6H PRN pain 5 days #20 tabs 11/16/24 potassium chloride 20 mEq tablet,extended release(part/cryst) 40 meq (2 x 20 mEq) PO DAILYCM k+ replace #60 tabs 11/16/24 enoxaparin 100 mg/mL subcutaneous syringe 90 mg (0.9 mL) subcut BID prevent blood clots 30 days #54 mL 11/23/24 potassium chloride 20 mEq tablet,extended release(part/cryst) 20 meq PO BIDCM #60 tabs 11/23/24 Hospital Course Summary of Care Provided Minutes Spent on Discharge: 35 Physical Exam Narrative GENERAL: cooperative HEENT: Atraumatic; normocephalic EYES; Anicteric, Normal Conjunctiva NECK; supple, normal thyroid, RESPIRATORY: Diminished to auscultation CARDIOVASCULAR: Regular S1 S2, GI: soft, normoactive bowel sounds, : No Renal angle tenderness; EXTREMITIES: Left foot in surgical dressing MUSCULOSKELETAL: no muscle wasting NEURO: Awake; no lateralizing signs. SKIN: No Rash PSYCH; Flat affect Weight / BMI Weight Weight: 83.7 kg Body Mass Index (BMI) 28.9 ABG / Lab / Microbiology Data 11/23/24 05:34 11/23/24 05:34 Laboratory: Laboratory Results - last 24 hr 11/23/24 05:34: WBC 5.2, RBC 3.00 L, Hgb 7.5 L, Hct 24.4 L, MCV 81.3, MCH 25.0 L, MCHC 30.7 L, RDW Std Deviation 48.7 H, RDW Coeff of Chris 16.8 H, Plt Count 299, MPV 8.8, Immature Gran % (Auto) 0.400, Neut % (Auto) 47.1, Lymph % (Auto) 39.5, [place] % (Auto) 8.5, Eos % (Auto) 3.9, Baso % (Auto) 0.6, Absolute Neuts (auto) 2.5, Absolute Lymphs (auto) 2.05, Nucleated RBC % 0, Atypical Lymphocytes 1+, Platelet Estimate A, Ovalocytes 1+, Sodium 139, Potassium 3.2 L, Chloride 111 H, Carbon Dioxide 18.5 L, Anion Gap 9, BUN 7, Creatinine 0.91, Estim Creat Clear Calc 90.47, Est GFR (MDRD) Non-Af 81, BUN/Creatinine Ratio 7.9 L, Glucose 111 H, Calcium 7.5 L Microbiology: Microbiology 11/20/24 05:27 Urine, Clean Catch Urine Culture - Preliminary Mixed Gram Positive Organisms 11/20/24 15:19 Blood Culture (Wb) - Arm Left Blood Culture - Preliminary No growth in 48 hours. 11/20/24 15:12 Blood Culture (Wb) - Anticubital Right Blood Culture - Preliminary No growth in 48 hours. 11/20/24 15:19 Mucosa - Nose SARS-CoV-2, Influenza & RSV (PCR) - Final D/C Instructions Discharge Diet: No restrictions Discharge Activity: Return to Normal Activity Call your doctor if you observe: Fever of 101 or Higher, Shortness of breath, Fainting spells and Chest pain DC O2, CPAP, BIPAP Needs Home O2 Discharge instructions: No Meaningful Use Info Meaningful Use Meaningful Use Diagnoses (Choose all that apply): None applicable Ischemic Stroke Statin Dosing Therapy Reference: STATIN DOSE THERAPY REFERENCE: * Patients > 75 years receive moderate or high dose statin therapy. * Patients 75 years or YOUNGER should receive HIGH intensity statin dose unless contraindicated. You will be required to document reason for non-treatment if statin daily dose does not meet guidelines. HIGH DOSE STATIN THERAPY DAILY Atorvastatin > than or = to 40 mg Rosuvastatin > than or = to 20 mg Amlodipine + Atorvastatin > than or = to 2.5/40 mg Ezetimibe + Simvastatin 10/80 mg Simvastatin 80mg Discharge Plan Admission Admit Date/Time: 11/21/24 02:05 Attending Provider: Nixon Nunez Primary Care Provider: Fredrick Boland Consulting Providers: Taras Sue Discharge Orders/Prescriptions Prescriptions: New potassium chloride 20 mEq Tablet,Er Particles/Crystals 20 meq PO BIDCM Qty: 60 0RF Continued escitalopram oxalate 20 mg tablet 20 mg PO DAILY olanzapine 20 mg tablet 20 mg PO QHS omeprazole 40 mg capsule,delayed release(DR/EC) 40 mg PO DAILY ferrous sulfate 325 mg (65 mg iron) tablet 325 mg PO DAILY Qty: 30 0RF potassium chloride 20 mEq Tablet,Er Particles/Crystals 40 meq PO DAILYCM Qty: 60 0RF hydromorphone [Dilaudid] 4 mg tablet 4 mg PO Q6H PRN (Reason: pain) 5 Days Qty: 20 0RF Rx Instructions: 1/2-1 Q6H prn pain-May take with Tylenol 650 mg enoxaparin 100 mg/mL Syringe 90 mg subcut BID 30 Days Qty: 54 0RF calcium polycarbophil [Fiber (calcium polycarbophil)] 625 mg Tablet 1,250 mg PO TID Qty: 90 0RF loperamide 2 mg Capsule 2 mg PO Q6 PRN (Reason: Diarrhea) Qty: 0 0RF midodrine 5 mg Tablet 10 mg PO TIDCM Qty: 90 0RF diphenoxylate-atropine 2.5-0.025 mg Tablet 2 tab PO 4X/DAY Qty: 120 0RF Referrals / Follow Up: Fredrick Boland DO [Primary Care Provider] - Within 1 Week Disposition Disposition (needs filled in before D/C Order can be placed): Home, Self Care Charges/Coding Visit Charges Inpatient E&M: 07322 Disch Hosp >30min
[2024-11-23] MEDS: Ferrous Sulfate 325 MG Tablet PO (11:45)
== END 2024-11-23 13:11 | disposition home or self-care (01) | DRG 469 ==
LOC: ED 21:46 → PCU 11-21 02:39 → MS3 11-21 07:18
PROVIDERS: Admitting Provider Family Medicine; Emergency Provider Emergency Medicine; PCP Student in an Organized Health Care Education/Training Program; Visit Provider Internal Medicine
DX: N17.9 Acute kidney failure, unspecified (principal); I24.89 Other forms of acute ischemic heart disease; E87.20 Acidosis, unspecified; D63.8 Anemia in other chronic diseases classified elsewhere; S91.302A Unspecified open wound, left foot, initial encounter; F31.9 Bipolar disorder, unspecified; Z89.432 Acquired absence of left foot; F60.3 Borderline personality disorder; E87.1 Hypo-osmolality and hyponatremia; K21.9 Gastro-esophageal reflux disease without esophagitis; E87.6 Hypokalemia; E86.0 Dehydration; R73.9 Hyperglycemia, unspecified; Z79.891 Long term (current) use of opiate analgesic; Z87.891 Personal history of nicotine dependence; A08.4 Viral intestinal infection, unspecified; Z79.01 Long term (current) use of anticoagulants; K91.2 Postsurgical malabsorption, not elsewhere classified; N30.00 Acute cystitis without hematuria; Z86.718 Personal history of other venous thrombosis and embolism; Z75.1 Person awaiting admission to adequate facility elsewhere; X58.XXXA Exposure to other specified factors, initial encounter
CPT/HCPCS: 36415; 71275; 73630; 74174; 80048; 80053; 81001; 83605; 83735; 84100; 84484; 85025; 85610; 85730; 87040; 87086; 87088; 87631; 93005; 97802; 99285; J2020; J2185; Q9967; A4216; J2405

== ENCOUNTER 2024-12-24 13:58 | Outpatient (CLI) | payer MEDICAID, SELFPAY ==
[2024-12-24 14:32] LABS: Absolute Lymphocyte Count 2.63 X10^3/uL (0.83-4.51); Absolute Neutrophil Count 7.8 X10^3/uL (2.0-7.7); Basophil# 0.05 X10^3/uL; Basophil% 0.4 % (0-1); Eosinophils% 2.6 % (0-5); Hematocrit 32.9 % (37-47); Hemoglobin 10.4 g/dL (12.0-15.0); Lymphocyte # 2.63 X10^3/ul (0.83-4.51); Lymphocyte % 22.8 % (19-41); Mean Corp Hgb Conc 31.6 g/dL (32-36); Mean Corpuscular Hgb 27.2 pg (27.0-32.0); Mean Corpuscular Volume 85.9 fL (81-99); Mean Platelet Vol. 9.2 fl (6.2-12.0); Monocyte# 0.66 X10^3/uL; Monocyte% 5.7 % (0-10); NRBC Flagged by Analyzer 0 % (0-5); Neutrophil # 7.83 X10^3/uL (2.7-7.7); Neutrophil % 67.9 % (47-70); Platelet Count 500 K/mm3 (150-450); RBC Distribution Width SD 59.3 fl (35.1-43.9); Red Blood Count 3.83 M/mm3 (4.2-5.4); White Blood Count 11.5 K/mm3 (4.4-11.0)
[2024-12-24 15:01] LABS: ALB/GLOB Ratio 0.9 RATIO (0.9-2.4); AST(SGOT) 42 U/L (<=31); Alanine Aminotransfer ALT/SGPT 77 U/L (<=34); Albumin, Serum 3.6 g/dL (3.5-5.0); Alkaline Phosphatase 192 U/L (35-104); Anion Gap 14 (5-15); BUN 23 mg/dL (4-19); Calcium,Total 9.1 mg/dL (7.6-11.0); Carbon Dioxide 20.1 mmol/L (21.0-32.0); Chloride 105 mmol/L (98-108); Creatinine, Serum 0.94 mg/dL (0.70-1.20); EST Glomerular Filtration Rate 79 (>60); Globulin 3.8 g/dL (2.2-4.2); Glucose 104 mg/dL (70-99); Magnesium 2.1 mg/dL (1.5-2.2); Phosphorus 3.7 mg/dL (2.7-4.5); Potassium 3.7 mmol/L (3.3-5.1); Protein, Total 7.3 g/dL (5.9-8.4); Sodium Level 139 mmol/L (133-145); Total Bilirubin 0.28 mg/dL (0.00-1.30)
[2024-12-24 22:28] LABS: Xtra Tube EP Lab EXTRA TUBE
== END 2024-12-24 23:59 | disposition home or self-care (01) ==
LOC: MEDOUTP 13:58
PROVIDERS: PCP Student in an Organized Health Care Education/Training Program
DX: K90.821 Short bowel syndrome with colon in continuity (principal)
CPT/HCPCS: 36592; 80053; 83735; 84100; 85025; A4216

== ENCOUNTER 2025-01-08 12:54 | Outpatient (CLI) | payer MEDICAID, SELFPAY ==
[2025-01-08 14:23] LABS: Hematocrit 35.9 % (37-47); Hemoglobin 11.9 g/dL (12.0-15.0); Mean Corp Hgb Conc 33.1 g/dL (32-36); Mean Corpuscular Volume 81.8 fL (81-99); Mean Platelet Vol. 9.7 fl (6.2-12.0); Platelet Count 257 K/mm3 (150-450); RBC Distribution Width CV 16.0 % (11.6-14.6); RBC Distribution Width SD 47.8 fl (35.1-43.9); Red Blood Count 4.39 M/mm3 (4.2-5.4); White Blood Count 6.3 K/mm3 (4.4-11.0)
[2025-01-08 15:28] LABS: CRP 16.50 mg/L (0.0-3.0); Magnesium 2.1 mg/dL (1.5-2.2); Triglycerides 90 mg/dL; Vitamin B12 381 pg/mL (180-914); Vitamin D,25 Hydroxy 8.9 ng/mL (30-100)
[2025-01-08 15:39] LABS: AST(SGOT) 18 U/L (<=31); Alanine Aminotransfer ALT/SGPT 16 U/L (<=34); Albumin, Serum 3.5 g/dL (3.5-5.0); Alkaline Phosphatase 141 U/L (35-104); Anion Gap 17 (5-15); BUN 17 mg/dL (4-19); BUN/Creat Ratio 17.3 RATIO (10-20); Calcium,Total 9.0 mg/dL (7.6-11.0); Carbon Dioxide 19.2 mmol/L (21.0-32.0); Chloride 101 mmol/L (98-108); Globulin 4.0 g/dL (2.2-4.2); Glucose 148 mg/dL (70-99); Potassium 2.6 mmol/L (3.3-5.1)
[2025-01-12 17:08] LABS: Copper, Serum or Plasma 131 ug/dL (80-158); VITAMIN B6 1.2 ug/L (3.4-65.2); Zinc, Plasma or Serum 71 ug/dL (44-115)
[2025-01-13 10:07] LABS: Methylmalonic Acid Bld 239 nmol/L (0-378)
== END 2025-01-08 23:59 | disposition home or self-care (01) ==
PROVIDERS: PCP Student in an Organized Health Care Education/Training Program
DX: K90.821 Short bowel syndrome with colon in continuity (principal)
CPT/HCPCS: 36592; 80053; 82306; 82525; 82607; 83735; 83921; 84100; 84207; 84478; 84630; 85027; 86140; A4216

== ENCOUNTER 2025-01-24 10:15 | Outpatient (RCR) | payer MEDICAID, SELFPAY ==
[2025-01-17 10:21] VITALS: BP 99/73; PULSE 117; RESP 16; TEMP 36.5; BMI 29.5
--- NOTE | 2025-01-17 13:31 | PCM.WC.HP ---
History of Present Illness Date of Service: 01/17/25 Chief Complaint: Left medial calcaneal ulceration History of Wound: Patient is a 39-year-old female who was referred to the wound care center for continued care of her plantar medial ulceration of the left heel. Patient reports feeling ill and october 2024 and reported to the ED at [facility] where she was admitted and underwent abdominal surgery however developed complications with clot thrown to the left foot which resulted in necrosis of the digits of the foot in addition to necrosis of the plantar medial calcaneus. She did undergo transmetatarsal amputation on 11/15/[address] Arreaga. The TMA site did heal well however she continued local wound care in his office for the last 8 weeks without improvement. There has been applications of Ernestina and bacitracin ointment to the site. She continues to ambulate in surgical shoe as her insurance will not cover knee scooter. Does admit to tenderness at times to the heel secondary to the ulceration site. Patient denies diabetes and states all of her issues of this foot have been caused by an embolic shower which resulted in her amputation. She denies N/V/F/chills. Denies further complaints. [facility] Medical History (Updated 01/17/25 @ 13:[address] Yoseph Fonseca, DPM) Depression Former smoker Ischemic necrosis of toe Sepsis Hx of blood clots Diarrhea Anxiety Tobacco use Borderline personality disorder Obesity Bipolar disorder Home Medications Medication Instructions Recorded Last Taken Type escitalopram oxalate 20 mg tablet 20 mg PO DAILY ASK PCP 04/27/22 06/19/23 History olanzapine 20 mg tablet 20 mg PO QHS ASK PCP 06/20/23 06/19/23 History omeprazole 40 mg capsule,delayed 40 mg PO DAILY ASK PCP 06/20/23 06/19/23 History release calcium polycarbophil 625 mg 1,250 mg (2 x 625 mg) PO TID see 11/05/24 Unknown Rx tablet (Fiber (calcium dr #90 tabs polycarbophil)) diphenoxylate-atropine 2.5 2 tab PO 4X/DAY slow down bowels 11/05/24 Unknown Rx mg-0.025 mg tablet #120 tabs potassium chloride 20 mEq 40 meq (2 x 20 mEq) PO DAILYCM k+ 11/16/24 Unknown Rx tablet,extended release(part/cryst) replace #60 tabs enoxaparin 100 mg/mL subcutaneous 90 mg (0.9 mL) subcut BID prevent 11/23/24 Unknown Rx syringe blood clots 30 days #54 mL potassium chloride 20 mEq 20 meq PO BIDCM #60 tabs 11/23/24 Unknown Rx tablet,extended release(part/cryst) warfarin 5 mg tablet 5 mg PO QODAY 01/17/25 Unknown History Allergy/AdvReac Type Severity Reaction Status Date / Time No Known Allergies Allergy Verified 01/17/25 10:39 Family History Other Heart disease Surgical History (Updated 01/17/25 @ 13:[address] Yoseph Fonseca DPM) History of creation of ostomy Hx of cholecystectomy H/O section History of carpal tunnel surgery Social History Smoking Status: Former smoker substance use type: does not use ROS Constitutional Constitutional: Denies anorexia, chills, fatigue or fever(s) Eyes Eyes: Denies blurry vision, change in vision or double vision ENT HEENT: Denies dysphagia, nasal congestion or nasal discharge Cardiovascular Cardiovascular: Denies chest pain, claudication or palpitations Respiratory/Chest Respiratory/Chest: Denies cough, shortness of breath at rest or wheezing Gastrointestinal Gastrointestinal: Denies abdominal pain, constipation, nausea or vomiting Genitourinary Genitourinary: Denies dysuria, hematuria or urinary frequency Musculoskeletal Musculoskeletal: Denies joint pain, joint stiffness or joint swelling Integumentary Integumentary: Denies jaundice, pruritus or rash Neurologic Neurologic: Denies dizziness, numbness or seizures Psychiatric Psychiatric: Denies anxiety or depression Endocrine Endocrinology: Denies cold intolerance or heat intolerance Hematologic/Lymphatic Hematologic/Lymphatic: Denies easy bleeding or easy bruising Vital Signs Vital Signs Vital Signs: 01/17/25 10:21 Temperature 97.7 F L Temperature Source Temporal Pulse Rate 117 H Respiratory Rate 16 Blood Pressure 99/73 Blood Pressure Mean 81 Blood Pressure Source Monitor Weight Weight: 85.488 kg Body Mass Index (BMI) 29.5 Physical Exam Const alert, oriented x3 and no apparent distress General Appearance: cooperative HEENT normocephalic Eyes General Eye: normal appearance of both eyes Neck General: normal visual inspection Resp normal respiratory effort Cardio regular rate and regular rhythm Extremity no calf tenderness Extremity Narrative: Left lower extremity: Vascular: DP and PT pulses palpable. CFT is less than 3 seconds to digits. Normal temperature gradient. Hair growth is present to digit. Neurologic: Epicritic sensation intact without focal deficit noted. Musculoskeletal: Muscle strength 5/5 and age-appropriate. Full range of motion of the ankle joint, STJ, MTJ, and first MTPJ appreciated. No pain to palpation of calf. Transmetatarsal amputation noted. There is some pain to palpation about the ulcerative site of the medial calcaneus. Dermatologic: Cicatrix appreciated at the transmetatarsal amputation stump. There is a full-thickness ulceration noted to the plantar medial aspect of the calcaneus with healthy granular layer and some hypergranulation tissue. There is some dried crusting at the wound margins secondary to continued serosanguineous drainage. No purulent drainage, no malodor noted. No signs of infection. Skin no rashes or lesions noted Neuro moves all extremities Debridement Note Debridement Note Wound debrided: Left medial heel Laterality: Left Wound Grade/Stage: Bhandari stage II Type of Debridement: Excisional debridement Anesthesia Used: 5% Lidocaine Gel and - (10 cc 1% lidocaine plain) Depth: Down to and including healthy tissue, in the subcutaneous layer and to muscle Percentage of wound debrided: 100 Instrument Used: 7mm curette Tissue Removed: Fibrous, devitalized subcutaneous, biofilm, slough Severity: Fat Layer Exposed Amount of bleeding with debridement: Mild Bleeding Controlled with: Compression and gauze Patient tolerated procedure: Patient tolerated procedure well Post-Debridement Measurements and Additional Note: Post-Debridement Measurements/Treatment - Nurse 1 - General Ulcer Assessment Start: 01/17/25 10:20 Freq: Status: Active Protocol: [email or web address] Activity Type Activity Date Activity User E-sign Co-sign Detail Recorded Client Recorded Date Recorded By Document 01/17/25 10:21 DL [id number] 01/17/25 10:35 DL 01/17/25 10:21 - Today's Visit Information Type of service Initial Visit Arrival Mode Ambulatory Transfer Assistance None Patient Identification Verified (Name & Yes ) Patient Requires Transmission-Based No Precautions Height and Weight Height 5 ft 7 in Weight 85.488 kg Weight in Pounds 188.5 lbs Weight Measurement Method Estimated by Patient Body Mass Index (BMI) 29.5 BMI Classification Overweight Vital Signs Temperature (97.8 F-99.1 F) 97.7 F L Temperature Source Temporal Pulse Rate (60-100) 117 H Pulse Location Monitor Respiratory Rate (12-18) 16 Respiratory rate source Observation Blood Pressure (90/60-120/80) 99/73 Blood Pressure Mean 81 Source Monitor Pain Scale: 0-10 Numeric Is Patient Pain Free? Yes Communication Assessment Preferred language [place] Able to Read Yes Able to Write No Right Hearing Abillity Normal Left Hearing Abillity Normal Visual Assistive Devices None Teaching Assessment Preferences Verbal,Written, Demonstration Smoking Status Former smoker Is Patient Diabetic Yes Culture/Yazdanism/Network Security Administrator Cultural/Yazdanism Needs that may affect No Treatment Plan Would you allow our hospital hydrodynamics teacher to No meet you for the purpose of spiritual/ emotional support? Network Security Administrator to contact place of religious No WC - Nurse 1 - General Ulcer Measurement Start: 01/17/25 10:20 Freq: Status: Active Protocol: Activity Type Activity Date Activity User E-sign Co-sign Detail Recorded Client Recorded Date Recorded By Document 01/17/25 10:21 DL [id number] 01/17/25 10:35 DL 01/17/25 10:21 Wound Center Nurse 1 #1 L Heel -Current Size (cm) - Length 3 -Current Size (cm) - Width 3.1 -Current Size (cm) - Depth 0.1 -Total Square Cm 9.3 -Photo Taken Yes -Classification - Thickness Full Thickness without Exposed Support Structure -Exudate Amt Medium -Exudate Type Serosanguineous -Wound Margin Distinct, Outline Attached -Granulation Amt Large (67-100%) -Granulation Quality Red -Necrosis Amt Small (1-33%) -Necrotic Tissue Type Adherent Slough -Structure Exposed N/A -Texture (Bryanna-wound Skin Appearance) Scarring -Moisture (Bryanna-wound Skin Appearance) Dry/Scaly -Color (Bryanna-wound Skin Appearance) No Abnormality -Temperature (Bryanna-wound Skin No Abnormality Appearance) (Pt Warm) -Ulcer Cleansing Soap and Water -Foul Odor after Cleansing No -Anesthetic Used 5% Lidocaine Gel WC - Nurse 2 - General Ulcer CM Notes Start: 01/17/25 10:20 Freq: Status: Active Protocol: Activity Type Activity Date Activity User E-sign Co-sign Detail Recorded Client Recorded Date Recorded By Document 01/17/25 11:04 [facility] [id number] 01/17/25 11:19 [facility] 01/17/25 11:04 Wound Center Nurse 2 -Time 11:04 -Correct Patient Yes -Correct Side, Site, Position Yes -Correct Procedure Yes -Procedure Performed Yes -Type of Procedure Debridement -Clinical Debridement Muscle / Fascia -Tissue Removed Muscle,Fascia -Post Debridement (cm) - Length 3 -Post Debridement (cm) - Width 3 -Post Debridement (cm) - Depth 0.3 -Total Square (Post) (cm) 9 -Area of Debridement (cm) - Length 3 -Area of Debridement (cm) - Width 3 -Total Square (Area) (cm) 9 -Tunneling No -Undermining/Tunneling No -Circular Undermining No -Wound/Ulcer Outcome Not Healed -Ulcer Cleansing Rinsed/ Irrigated with Saline -Foul Odor after Cleansing No -Bioengineered Tissue No -Injectable Lidocaine (%) 1 -Lidocaine (ml) 10 -Bleeding Controlled with Pressure -Treatment Response Procedure Tolerated Well -Debridement - Muscle / Fascia, 1st Yes 20sq cm Pain Scale: 0-10 Numeric Is Patient Pain Free? Yes - Nurse 3 - General Ulcer D/C NN Start: 01/17/25 10:20 Freq: Status: Active Protocol: Activity Type Activity Date Activity User E-sign Co-sign Detail Recorded Client Recorded Date Recorded By Document 01/17/25 11:32 [id number] 01/17/25 11:33 01/17/25 11:32 Wound Care Center Nurse 3 #1 L Heel -Ulcer Cleansing Rinsed/ Irrigated with Saline -Foul Odor after Cleansing No -Primary Dressing Applied AMD Dressing 4x4,C Hydrogel, Collagen Powder -Primary Dressing Covered/Secured with Dry Gauze & Roll Gauze, Secured with Tape -AMD Dressing 4x4 1 -Collagen Powder 1 -Hydrogel 1 Treatment Response Procedure Tolerated Well Pain Scale: 0-10 Numeric Is Patient Pain Free? 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 Collagen powder moistened with hydrogel and PHMB dressing applied to the ulcerative site and dressed with dry sterile dressing. She is to change dressing daily. Discussed nonweightbearing status of the left lower extremity. Insurance has denied knee scooter and she cannot afford to rent or pay [id number]. She does have a walker and I have suggested she return to use of the walker with her surgical shoe for the nonweightbearing status. Discussed continued adequate protein intake to aid in wound healing. Tacho supplementation was also recommended. Ulceration is secondary to acute ischemic event in relation to her previous abdominal surgery. Discussed signs and symptoms of infection. Discussed if she notices increasing redness around the ulcerative site that moves up the leg, purulent drainage from the wound site, increasing foul odor from the wound site, or if she experiences fever greater than 101 degree accompanied by nausea, vomiting, chills that these are signs of a progressing infection and she should report to the ED for IV antibiotics and further evaluation. She is understanding of this. The following work up and care recommendations were made: Dressing: Collagen powder, hydrogel, PHMB foam, dry sterile dressing. Change dressing daily. Wash: Soap and water Tissue growth optimization: Collagen powder and hydrogel and PHMB foam Offload: Remain nonweightbearing to the left lower extremity with assistance of walker Vascular: DP and PT pulses palpable. Adequate cap fill to digits. Vascular status is not impacting healing however ulceration is secondary to an acute thrombotic event and she is currently on anticoagulant therapy. Edema: None Infection: No signs of infection Pain: Continue extra strength Tylenol for discomfort as she is currently on anticoagulant therapy. Host factors: Acute ischemic event, otherwise no factors to impede healing. I answered all the patient's questions. To return to the wound healing center in 1 week or call sooner if the patient has any questions or concerns.
--- NOTE | 2025-01-17 15:22 | WC ---
PHOTO-LEFT HEEL 01/17/25
[2025-01-24 10:12] VITALS: BP 107/81; PULSE 110; RESP 18; TEMP 35.4; BMI 29.5
--- NOTE | 2025-01-24 11:55 | PCM.WC.PN ---
History of Present Illness Date of Service: 01/24/25 Chief Complaint: Left medial calcaneal ulceration History of Wound: Patient is a 39-year-old female who was referred to the wound care center for continued care of her plantar medial ulceration of the left heel. Patient reports feeling ill and october 2024 and reported to the ED at [facility] where she was admitted and underwent abdominal surgery however developed complications with clot thrown to the left foot which resulted in necrosis of the digits of the foot in addition to necrosis of the plantar medial calcaneus. She did undergo transmetatarsal amputation on 11/15/[address] Arreaga. The TMA site did heal well however she continued local wound care in his office for the last 8 weeks without improvement. There has been applications of Ernestina and bacitracin ointment to the site. She continues to ambulate in surgical shoe as her insurance will not cover knee scooter. Does admit to tenderness at times to the heel secondary to the ulceration site. Patient denies diabetes and states all of her issues of this foot have been caused by an embolic shower which resulted in her amputation. She denies N/V/F/chills. Denies further complaints. Subjective Subjective This is a 39-year-old female who returns to the wound care center today for continued follow-up of a plantar medial left heel ulceration secondary to acute thrombotic event. She continues applying the collagen powder, hydrogel, and PHMB dressings as instructed daily. She does believe the site is improving. Denies constitutional symptoms. Denies further complaints. Objective Data Objective Data Vital Signs: Vital Signs Temp Pulse Resp BP 95.8 F L 110 H 18 107/81 H 01/24/25 10:12 01/24/25 10:12 01/24/25 10:12 01/24/25 10:12 Weight: 85.488 kg Body Mass Index (BMI) 29.5 Physical Exam Const alert, oriented x3 and no apparent distress General Appearance: cooperative HEENT normocephalic Eyes General Eye: normal appearance of both eyes Neck General: normal visual inspection Resp normal respiratory effort Cardio regular rate and regular rhythm Extremity no calf tenderness Extremity Narrative: Left lower extremity: Vascular: DP and PT pulses palpable. CFT is less than 3 seconds to digits. Normal temperature gradient. Hair growth is present to digit. Neurologic: Epicritic sensation intact without focal deficit noted. Musculoskeletal: Muscle strength 5/5 and age-appropriate. Full range of motion of the ankle joint, STJ, MTJ, and first MTPJ appreciated. No pain to palpation of calf. Transmetatarsal amputation noted. There is some pain to palpation about the ulcerative site of the medial calcaneus. Dermatologic: Cicatrix appreciated at the transmetatarsal amputation stump. There is a full-thickness ulceration noted to the plantar medial aspect of the calcaneus with healthy granular layer and some hypergranulation tissue. There is some dried crusting at the wound margins secondary to continued serosanguineous drainage. No purulent drainage, no malodor noted. No signs of infection. Skin no rashes or lesions noted Neuro moves all extremities Debridement Note Debridement Note Wound debrided: Left plantar medial heel Laterality: Left Wound Grade/Stage: Bhandari stage I Type of Debridement: Excisional debridement Anesthesia Used: 5% Lidocaine Gel Depth: Down to and including healthy tissue and in the subcutaneous layer Percentage of wound debrided: 100 Instrument Used: 5mm curette Tissue Removed: Fibrous, devitalized subcutaneous, biofilm, slough Severity: Fat Layer Exposed Amount of bleeding with debridement: Mild Bleeding Controlled with: Compression and gauze Patient tolerated procedure: Patient tolerated procedure well Post-Debridement Measurements and Additional Note: Post-Debridement Measurements/Treatment - Nurse 1 - General Ulcer Assessment Start: 01/17/25 10:20 Freq: Status: Active Protocol: .LOWEXT Activity Type Activity Date Activity User E-sign Co-sign Detail Recorded Client Recorded Date Recorded By Document 01/17/25 10:21 [id number] 01/17/25 10:35 Document 01/24/25 10:12 [id number] 01/24/25 10:21 01/17/25 01/24/25 10:21 10:12 - Today's Visit Information Type of service Initial Visit Follow-up Visit (Physician/[employer] ) Arrival Mode Ambulatory Ambulatory Transfer Assistance None Patient Identification Verified (Name & Yes Yes ) Patient Requires Transmission-Based No No Precautions Height and Weight Height 5 ft 7 in Weight 85.488 kg Weight in Pounds 188.5 lbs Weight Measurement Method Estimated by Patient Body Mass Index (BMI) 29.5 29.5 BMI Classification Overweight Overweight Vital Signs Temperature (97.8 F-99.1 F) 97.7 F L 95.8 F L Temperature Source Temporal Temporal Pulse Rate (60-100) 117 H 110 H Pulse Location Monitor Monitor Respiratory Rate (12-18) 16 18 Respiratory rate source Observation Observation Blood Pressure (90/60-120/80) 99/73 107/81 H Blood Pressure Mean (mm Hg) 81 89 Source Monitor Monitor Position Semi-Fowlers Blood Pressure Location Left Arm History Since Last Visit- (Skip if this is Patient's initial visit) Have you changed medications since your Yes last visit? Any new allergies or adverse reactions No Had a fall/change in ADL's that may No increase risk of falls Signs or symptoms of abuse and/or No neglect since last visit Have you been in the hospital since your No last visit? Has dressing in place as prescribed Yes Has compression in place as prescribed Yes Has offloadiing in place as prescribed Yes Experienced any changes in pain level or No management Left Footwear Surgical Shoe with pressure relief insole Right Footwear Regular Shoe Pain Scale: 0-10 Numeric Is Patient Pain Free? Yes Yes Communication Assessment Preferred language [place] Able to Read Yes Able to Write No Right Hearing Abillity Normal Left Hearing Abillity Normal Visual Assistive Devices None Teaching Assessment Preferences Verbal,Written, Demonstration Smoking Status Former smoker Is Patient Diabetic Yes Culture/Taoist/[place] Cultural/Taoist Needs that may affect No Treatment Plan Would you allow our hospital glove maker to No meet you for the purpose of spiritual/ emotional support? Chain [place]er to contact place of scientologist No WC - Nurse 1 - General Ulcer Measurement Start: 01/17/25 10:20 Freq: Status: Active Protocol: Activity Type Activity Date Activity User E-sign Co-sign Detail Recorded Client Recorded Date Recorded By Document 01/17/25 10:21 DL [id number] 01/17/25 10:35 DL Document 01/24/25 10:12 JF [id number] 01/24/25 10:21 JF 01/17/25 01/24/25 10:21 10:12 Wound Center Nurse 1 #1 L Heel -Combined with other wound No -Current Size (cm) - Length 3 2.5 -Current Size (cm) - Width 3.1 2.5 -Current Size (cm) - Depth 0.1 0.2 -Total Square Cm 9.3 6.25 -Photo Taken Yes Yes -Epithelialization Small 1-33% -Tunneling No -Undermining/Tunneling No -Circular Undermining No -Classification - Thickness Full Thickness without Exposed Support Structure -Exudate Amt Medium Medium -Exudate Type Serosanguineous Serosanguineous -Wound Margin Distinct, Flat & Intact Outline Attached -Granulation Amt Large (67-100%) Large (67-100%) -Granulation Quality Red Red -Slough/Fibrin Yes -Necrosis Amt Small (1-33%) Small (1-33%) -Necrotic Tissue Type Adherent Slough Adherent Slough -Structure Exposed N/A N/A -Texture (Bryanna-wound Skin Appearance) Scarring Assessed -Moisture (Bryanna-wound Skin Appearance) Dry/Scaly Assessed,Dry/ Scaly -Color (Bryanna-wound Skin Appearance) No Abnormality Assessed -Temperature (Bryanna-wound Skin No Abnormality No Abnormality Appearance) (Pt Warm) (Pt Warm) -Tenderness on Palpation (Bryanna-wound No Skin Appearance) -Ulcer Cleansing Soap and Water Soap and Water -Foul Odor after Cleansing No No -Anesthetic Used 5% Lidocaine 5% Lidocaine Gel Gel Lower Limb Edema Present NA WC - Nurse 2 - General Ulcer CM Notes Start: 01/17/25 10:20 Freq: Status: Active Protocol: Activity Type Activity Date Activity User E-sign Co-sign Detail Recorded Client Recorded Date Recorded By Document 01/17/25 11:04 [facility] [id number] 01/17/25 11:19 [facility] Document 01/24/25 10:35 [facility] [id number] 01/24/25 10:43 [facility] 01/17/25 01/24/25 11:04 10:35 Wound Center Nurse 2 #1 L Heel -Time 11:04 10:36 -Correct Patient Yes Yes -Correct Side, Site, Position Yes Yes -Correct Procedure Yes Yes -Procedure Performed Yes Yes -Type of Procedure Debridement Debridement -Clinical Debridement Muscle / Fascia -Tissue Removed Muscle,Fascia -Post Debridement (cm) - Length 3 2.8 -Post Debridement (cm) - Width 3 2.7 -Post Debridement (cm) - Depth 0.3 0.1 -Total Square (Post) (cm) 9 7.56 -Area of Debridement (cm) - Length 3 2.8 -Area of Debridement (cm) - Width 3 2.7 -Total Square (Area) (cm) 9 7.56 -Tunneling No No -Undermining/Tunneling No No -Circular Undermining No No -Wound/Ulcer Outcome Not Healed Not Healed -Ulcer Cleansing Rinsed/ Rinsed/ Irrigated with Irrigated with Saline Saline -Foul Odor after Cleansing No No -Bioengineered Tissue No -Injectable Lidocaine (%) 1 -Lidocaine (ml) 10 -Injectable Lidocaine w/ Epi (%) 1 -Injectable Lidocaine w/ Epi (mls) 7 -Bleeding Controlled with Pressure Pressure -Treatment Response Procedure Procedure Tolerated Well Tolerated Well -Debridement - Muscle / Fascia, 1st Yes 20sq cm Pain Scale: 0-10 Numeric Is Patient Pain Free? Yes Yes - Nurse 3 - General Ulcer D/C NN Start: 01/17/25 10:20 Freq: Status: Active Protocol: Activity Type Activity Date Activity User E-sign Co-sign Detail Recorded Client Recorded Date Recorded By Document 01/17/25 11:32 DL [id number] 01/17/25 11:33 DL Document 01/24/25 10:51 MT [id number] 01/24/25 10:52 DE 01/17/25 01/24/25 11:32 10:51 Wound Care Center Nurse 3 #1 L Heel -Ulcer Cleansing Rinsed/ Irrigated with Saline -Foul Odor after Cleansing No -Primary Dressing Applied AMD Dressing AMD Dressing 4x4,C Hydrogel, 4x4,Collagen Collagen Powder Powder -Other Dressing abd, kerlix -Primary Dressing Covered/Secured with Dry Gauze & Dry Gauze & Roll Gauze, Roll Gauze, Secured with Secured with Tape Tape -AMD Dressing 4x4 1 1 -Collagen Powder 1 1 -Hydrogel 1 Treatment Response Procedure Tolerated Well Pain Scale: 0-10 Numeric Is Patient Pain Free? 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 Collagen powder moistened with hydrogel and PHMB dressing applied to the ulcerative site and dressed with dry sterile dressing. She is to change dressing daily. There is reduction in the length the width and the depth versus her previous visit. Ulceration is noted to be healing well with current treatment regiment. Discussed nonweightbearing status of the left lower extremity. Insurance has denied knee scooter and she cannot afford to rent or pay [id number]. She does have a walker and I have suggested she return to use of the walker with her surgical shoe for the nonweightbearing status. Discussed continued adequate protein intake to aid in wound healing. Tacho supplementation was also recommended. Ulceration is secondary to acute ischemic event in relation to her previous abdominal surgery. Discussed signs and symptoms of infection. Discussed if she notices increasing redness around the ulcerative site that moves up the leg, purulent drainage from the wound site, increasing foul odor from the wound site, or if she experiences fever greater than 101 degree accompanied by nausea, vomiting, chills that these are signs of a progressing infection and she should report to the ED for IV antibiotics and further evaluation. She is understanding of this. The following work up and care recommendations were made: Dressing: Collagen powder, hydrogel, PHMB foam, dry sterile dressing. Change dressing daily. Wash: Soap and water Tissue growth optimization: Collagen powder and hydrogel and PHMB foam Offload: Remain nonweightbearing to the left lower extremity with assistance of walker Vascular: DP and PT pulses palpable. Adequate cap fill to digits. Vascular status is not impacting healing however ulceration is secondary to an acute thrombotic event and she is currently on anticoagulant therapy. Edema: None Infection: No signs of infection Pain: Continue extra strength Tylenol for discomfort as she is currently on anticoagulant therapy. Host factors: Acute ischemic event, otherwise no factors to impede healing. I answered all the patient's questions. To return to the wound healing center in 1 week or call sooner if the patient has any questions or concerns.
--- NOTE | 2025-01-25 09:32 | WC ---
PHOTO-RIGHT HEEL 01/24/25
== END 2025-01-24 23:59 | disposition home or self-care (01) ==
LOC: WC 10:15
PROVIDERS: PCP Student in an Organized Health Care Education/Training Program; Referring Provider Podiatrist Foot & Ankle Surgery; Visit Provider Student in an Organized Health Care Education/Training Program
DX: L97.422 Non-pressure chronic ulcer of left heel and midfoot with fat layer exposed (principal); Z89.432 Acquired absence of left foot; M79.672 Pain in left foot; Z87.891 Personal history of nicotine dependence
CPT/HCPCS: 11042; 11043; 99214; G0463

== ENCOUNTER 2025-02-05 12:29 | Outpatient (CLI) | payer MEDICAID, SELFPAY | END 2025-02-05 23:59 | disposition home or self-care (01) | PROVIDERS: PCP Student in an Organized Health Care Education/Training Program | DX: Z45.2 Encounter for adjustment and management of vascular access device (principal) ==

== ENCOUNTER → 2025-02-05 | Outpatient (CLI) | payer MEDICAID, SELFPAY ==
--- OUTSIDE RECORDS SUMMARY | 2025-02-05 20:41 | XMS RPT_ITS | CCD ---
Author Organization [facility] Care Team Providers Care Human Resources Operations Director Name Role Phone Zakiya George Unavailable UnavailZakiya Alfaro Unavailable UnavailSANDRA Anand Unavailable Unavailable PROVIDER, UNKNOWN Unavailable Unavailable No, PCP Unavailable Unavailable Fredrick Boland DO Primary Care Provider Fredrick Boland DO Primary Care Provider Fredrick Boland DO Primary Care Provider Fredrick Boland DO Primary Care Provider Ariella Cortes RN Unavailable Unavailable ESA VELÁSQUEZ Attending Unavailable FREDRICK BOLAND Primary Care Unavailable Fredrick Boland DO Primary Care Provider Rangel ALARM SIGNALER.Yesenia HARRINGTON Unavailable [facility] ALARM SIGNALER.Xochilt HARRINGTON Unavailable Ariella Cortes RN Unavailable Unavailable Juan Carlos ALARM SIGNALER.Yesenia HARRINGTON Unavailable Maggie Putnam MD Unavailable Provider Larry VO Unavailable Unavailable MICHAEL ELLIS Admitting UnavailHERBERT Guerra III (HIST) Referring Unavailable WILLIS EMMANUEL Attending Unavailable YOHANA GARCIA III Consulting Unavailable FREDRICK BOLAND Primary Care Unavailable ROSA MARIA BULLOCK Admitting Unavailable DIANDRA MARTINEZ Attending Unavailable ALEXANDRIA BENITEZ Consulting Unavailable FREDRICK BOLAND Primary Care Unavailable FARZANEH AVILEZ Referring Unavailab MAGGIE Pratt MD Referring Unavailable MAGGIE PUTNAM MD Consulting Unavailable DONTE MEZA DO Admitting Unavailable DONTE MEZA DO Attending Unavailable DONTE MEZA DO Primary Care Unavailable PROVIDER, UNKNOWN Consulting Unavailable PROVIDER, UNKNOWN Consulting Unavailable MAGGIE PUTNAM MD Admitting Unavailable MAGGIE PUTNAM MD Attending Unavailable MAGGIE PUTNAM MD Consulting Unavailable MAGGIE PUTNAM MD Primary Care Unavailable PROVIDER, UNKNOWN Consulting Unavailable PROVIDER, UNKNOWN Consulting Unavailable MAGGIE PUTNAM MD Admitting Unavailable MAGGIE PUTNAM MD Attending Unavailable MAGGIE PUTNAM MD Primary Care Unavailable MAGGIE PUTNAM MD Referring Unavailable FARZANEH AVILEZ JR Admitting Unavailable MAGGIE PUTNAM MD Consulting Unavailable FARZANEH AVILEZ JR Attending Unavailable FARZANEH AVILEZ JR Primary Care Unavailable PROVIDER, UNKNOWN Consulting Unavailable PROVIDER, UNKNOWN Consulting Unavailable HERBERT FLORES Admitting Unavailable MAGGIE PUTNAM MD Referring Unavailable MAGGIE PUTNAM MD Consulting Unavailable HERBERT FLORES Attending Unavailable HERBERT FLORES Primary Care Unavailable PROVIDER, UNKNOWN Consulting Unavailable PROVIDER, UNKNOWN Consulting Unavailable Boland DO, Fredrick L Primary Care Provider Lee Lou MD Unavailable [place] ALARM SIGNALER.Ed HARRINGTON Unavailable [facility], Keesha Unavailable [facility], Mounika Unavailable Stephie Montoya MD Unavailable Stephie Montoya MD Unavailable Heraclio Palacio Attending Unavailable Boland, Fredrick Primary Care Unavailable Jag Thomas Attending Unavailable Boland, Fredrick Primary Care Unavailable SHIVERS, RI Attending Unavailable SHIVERS, RI Referring Unavailable Boland, Fredrick Primary Care Unavailable Taras Sue Admitting Unavailable Taras Sue Consulting Unavailable Donte Nunez Attending Unavailable Boland, Fredrick Primary Care Unavailable Alok Arreaga Referring Unavailable Yoseph Fonseca Attending Unavailable Boland, Fredrick Primary Care Unavailable Yoseph Fonseca Attending Unavailable Alok Arreaga Referring Unavailable Boland, Fredrick Primary Care Unavailable Odessa, Ed Sharp Referring Unavailable Odessa Ed J Attending Unavailable Boland, Fredrick Primary Care Unavailable Robert, Ailyn Referring Unavailable Boland, Fredrick Primary Care Unavailable Joshua Nazario Attending Unavailable KaiseroniVinicius quispeTaras F Consulting Unavailable Joshua Hugo Attending Unavailable Kotsonis, Taras F Admitting Unavailable Boland, Fredrick Primary Care Unavailable Joppemerson, Joshua Consulting Unavailable Silas, Ashley Consulting Unavailable Kotsonis, Taras F Attending Unavailable Silas Ashley Admitting Unavailable Ashley Rosen Attending Unavailable Boland, Fredrick Primary Care Unavailable Silas, Ashley Consulting Unavailable Suppan, Alko Consulting Unavailable TereletsRosa Maria son Attending Unavailable Tereletsadelaida, Rosa Maria Consulting Unavailable Kotsonis, Taras F Consulting Unavailable Kotsonis, Taras F Admitting Unavailable Kotsonibrittaney, Taras F Attending Unavailable Boland, Fredrick Primary Care Unavailable Raoul Robertison Attending Unavailable Trell Rosa Maria Referring Unavailable Boland, Fredrick Primary Care Unavailable SHIVERS, RI Referring Unavailable Boland, Fredrick Primary Care Unavailable SHIVERS, RI Attending Unavailable Kotsonis, Taras F Consulting Unavailable Kotsonis, Taras F Admitting Unavailable Joshua Hugo Attending Unavailable Boland, Fredrick Primary Care Unavailable Oanh Joshua Consulting Unavailable Silas, Ashley Consulting Unavailable Silas, Ashley Admitting Unavailable Silas Ashley Consulting Unavailable Rosa Maria Cai Attending Unavailable Suppan, Alok Consulting Unavailable SHIVERS, RI Referring Unavailable SHIVERS, RI Attending Unavailable Boland, Fredrick Primary Care Unavailable Kotsonis, Taras F Consulting Unavailable Kotsonis, Taras F Admitting Unavailable Donte Nunez Attending Unavailable Boland, Fredrick Primary Care Unavailable Donte Nunez Consulting Unavailable Ashley Rosen Attending Unavailable Heraclio Palacio Attending Unavailable Boland, Fredrick Primary Care Unavailable BOLAND, FREDRICK L Primary Care Unavailable ED THOMAS Attending Unavailable BOLAND, FREDRICK L Primary Care Unavailable CLAYTON GRANADOS Attending Unavailable XOCHILT GASTON Referring Unavailable BOLAND, FREDRICK L Primary Care Unavailable XOCHILT GASTON Attending Unavailable BOLAND, FREDRICK L Primary Care Unavailable BOLAND, FREDRICK L Primary Care Unavailable ED THOMAS Referring Unavailable BOLAND, FREDRICK L Primary Care Unavailable KIRIT DEVINE Attending Unavailable CLAYTON GRANADOS Attending Unavailable BOLAND, FREDRICK L Primary Care Unavailable BOLAND, FREDRICK L Primary Care Unavailable ED THOMAS Referring Unavailable BOLAND, FREDRICK L Primary Care Unavailable ALEJA GONCALVES Referring Unavailable BOLAND, FREDRICK L Primary Care Unavailable SANDRA RILEY Admitting Unavailable KIRIT DEVINE Attending Unavailable BOLAND, FREDRICK L Primary Care Unavailable HERACLIO PALACIO Referring Unavailable MEGAN OLIVER Attending Unavailable DELILAH CHAVES Admitting Unavailable BOLAND, FREDRICK L Primary Care Unavailable ROGE, ALEJA Referring Unavailable BOLAND, FREDRICK L Primary Care Unavailable ANGELA BLACKWOOD Attending Unavailable SELF Referring Unavailable BOLAND, FREDRICK L Primary Care Unavailable MARTÍN BALLESTEROS Attending Unavailable BOLAND, FREDRICK L Primary Care Unavailable BOLAND, FREDRICK L Primary Care Unavailable ED THOMAS Attending Unavailable BOLAND, FREDRICK L Primary Care Unavailable ED THOMAS Referring Unavailable ROBERTA CLAYTON J Referring Unavailable ILA GRANADOSI J Attending Unavailable BOLAND, FREDRICK L Primary Care Unavailable RAJGURU, CLAYTON J Referring Unavailable BOLAND, FREDRICK L Primary Care Unavailable XOCHILT GASTON Attending Unavailable BOLAND, FREDRICK L Primary Care Unavailable Allergies Allergy Classification Reported Allergen(s) Allergy Type Date of Onset Reaction(s) Facility (20 sources) Acetaminophen / HYDROcodone; Translations: [HYDROCODONE-ACETA MINOPHEN] Drug Allergy 02-06-2018 GI Upset [facility] (1 source) Acetaminophen / HYDROcodone Drug Allergy [facility] (1 source) HYDROcodone Drug Allergy [facility] Medications Current Medications Medication Drug Class(es) Dates Sig (Normalized) Sig (Original) acetaminophen 325 mg oral tablet (12 sources) Start: 09-03-2024 End: 10-03-2024 take 2 tablets by mouth every six hours acetaminophen (TYLENOL) 325 mg tablet Take 2 tablets by mouth every 6 hours. 09/03/2024 10/03/2024 Active escitalopram 10 mg oral tablet (20 sources) Serotonin Reuptake Inhibitor Start: 01-11-2025 End: 03-12-2025 take 1 tablet by mouth once daily escitalopram oxalate (LEXAPRO) 10 mg tablet Take 1 tablet by mouth once daily. Take with 20 mg dose. 30 tablet 1 01/11/2025 03/12/2025 Active Start: 11-15-2024 End: 03-12-2025 take 1 tablet by mouth once daily escitalopram oxalate (LEXAPRO) 20 mg tablet Take 1 tablet by mouth once daily. Take with 10 mg dose. 30 tablet 1 01/11/2025 03/12/2025 Active Start: 10-13-2024 End: 11-12-2024 take 1 tablet by mouth once daily escitalopram oxalate (LEXAPRO) 20 mg tablet Take 1 tablet by mouth once daily. 30 tablet 10/13/2024 Active Start: 06-21-2024 End: 10-12-2024 take 2 tablets by mouth once daily escitalopram oxalate (LEXAPRO) 20 mg tablet Take 2 tablets by mouth once daily. 60 tablet 08/07/2024 10/12/2024 Discontinued Start: 03-28-2024 End: 05-27-2024 take 2 tablets by mouth once daily escitalopram oxalate (LEXAPRO) 20 mg tablet Take 2 tablets by mouth once daily. 60 tablet 1 03/28/2024 05/27/2024 Active Start: 07-08-2023 End: 03-22-2024 take 2 tablets by mouth once daily escitalopram oxalate (LEXAPRO) 20 mg tablet Take 2 tablets by mouth once daily. 60 tablet 02/21/2024 03/22/2024 Active Start: 03-14-2023 End: 06-12-2023 take 2 tablets by mouth once daily escitalopram oxalate (LEXAPRO) 20 mg tablet Take 2 tablets by mouth once daily. 180 tablet 0 03/14/2023 06/12/2023 Active Start: 11-18-2022 End: 03-14-2023 take 1.5 tablets by mouth once daily escitalopram oxalate (LEXAPRO) 20 mg tablet Take 1.5 tablets by mouth once daily. 135 tablet 1 11/18/2022 03/14/2023 Discontinued Start: 12-15-2021 End: 12-26-2022 take 1 tablet by mouth once daily escitalopram oxalate (LEXAPRO) 20 mg tablet Take 1 tablet by mouth once daily. 90 tablet 0 03/04/2022 05/10/2022 Discontinued Start: 10-27-2021 End: 12-27-2021 take 1 tablet by mouth once daily escitalopram oxalate (LEXAPRO) 10 mg tablet Take 1 tablet by mouth once daily. 30 tablet 0 11/27/2021 12/15/2021 Discontinued Comment on above: Take 1 tablet by nathan th once daily. Take 1.5 tablets by mouth once daily. Take 2 tablets by mo [facility] once daily. gabapentin 300 mg oral capsule (20 sources) Anti-epileptic Agent Start: 12-20-2024 End: 12-31-2024 take 1 capsule by mouth every twelve hours gabapentin (NEURONTIN) 300 mg capsule Take 1 capsule by mouth every 12 hours for 10 days. 20 capsule 12/21/2024 11:01 AM EDT 12/20/2024 Active Start: 09-03-2024 End: 12-02-2024 take 1 tablet by mouth every eight hours gabapentin (NEURONTIN) 600 mg tablet Take 1 tablet by mouth every 8 hours for 90 days. 09/03/2024 Suspended glucose 0.45 mg/mg oral gel (20 sources) Start: 09-03-2024 dextrose (TRUE PLUS) 15 gram/32 mL oral gel Take 32 mL by mouth as needed (blood glucose is less than 70 mg/dL). 09/03/2024 Active HYDROmorphone hydrochloride 2 mg oral tablet (9 sources) Opioid Agonist Start: 12-21-2024 End: 12-26-2024 take 1 tablet by mouth every eight hours as needed for pain HYDROmorphone (DILAUDID) 2 mg tablet Indications: S/P exploratory laparotomy , Acute post-operative pain Take 1 tablet by mouth every 8 hours as needed for pain for up to 5 days. 15 tablet 12/21/2024 1:42 PM EDT 12/21/2024 12/26/2024 Active Start: 09-03-2024 End: 09-10-2024 take 2-4 mg by mouth every three hours as needed HYDROmorphone (DILAUDID) 2 mg tablet Take 1-2 tablets by mouth every 3 hours as needed for pain for up to 7 days. 0 09/03/2024 09/10/2024 Active Start: 09-03-2024 End: 09-10-2024 take 0.4 mg intravenously every six hours as needed HYDROmorphone (DILAUDID) 0.5 mg/0.5 mL injection Inject 0.4 mL intravenously every 6 hours as needed (breakthrough pain) for up to 7 days. 09/03/2024 09/10/2024 Active End: 12-21-2024 take 2-4 mg by mouth every six hours as needed HYDROmorphone (DILAUDID) 4 mg tablet Take 2-4 mg by mouth every 6 hours as needed for pain. 0 12/21/2024 Discontinued insulin lispro 100 unt/ml injectable solution (20 sources) Insulin Analog Start: 09-03-2024 insulin lispro 100 unit/mL injection Inject 0-10 Units subcutaneously once daily. Daily @ 3AM 09/03/2024 Active Start: 09-03-2024 End: 10-12-2024 insulin lispro 100 unit/mL i njection Inject 0-10 Units subcutaneously with meals and at bedtime. 09/03/2024 10/12/2024 Discontinued iv contrast (will be provided with radiology test) (1 source) Start: 10-11-2024 End: 10-12-2024 iv contrast (will be provided with radiology test) CT Chest W -Inject, intravenously, once for 1 dose.No IV access, insert saline lock prior to the beginning of sedation, infusion, injection of imaging exam. Discontinue saline lock post exam. If Pt. has a central line or IVAD, may access for administration according to line specific nursing protocol. Once exam is complete flush line and de-access according to line specific nursing protocol in the CT contrast administration guidelines link. 1 each 10/11/2024 10/12/2024 Active metroNIDAZOLE 500 mg oral tablet (7 sources) Nitroimidazole Antimicrobial Start: 12-31-2024 End: 01-07-2025 take 1 tablet by mouth three times daily metroNIDAZOLE (FLAGYL) 500 mg tablet Take 1 tablet by mouth three times a day for 7 days. 21 tablet 12/31/2024 01/07/2025 Active OLANZapine 20 mg oral tablet (20 sources) Atypical Antipsychotic Start: 11-15-2024 End: 03-12-2025 take 1 tablet by mouth once daily at bedtime OLANZapine (ZYPREXA) 20 mg tablet Take 1 tablet by mouth daily at bedtime. 30 tablet 1 01/11/2025 03/12/2025 Active Start: 06-21-2024 End: 10-02-2024 take 1 tablet by mouth once daily at bedtime OLANZapine (ZYPREXA) 20 mg tablet Take 1 tablet by mouth daily at bedtime. 30 tablet 08/07/2024 10/02/2024 Discontinued Start: 07-20-2023 End: 05-27-2024 take 1 tablet by mouth once daily at bedtime OLANZapine (ZYPREXA) 20 mg tablet Take 1 tablet by mouth daily at bedtime. 30 tablet 1 03/28/2024 05/27/2024 Active Start: 01-02-2023 End: 07-17-2023 take 1 tablet by mouth once daily at bedtime OLANZapine (ZYPREXA) 20 mg tablet Take 1 tablet by mouth daily at bedtime. 30 tablet 2 04/18/2023 07/17/2023 Active Start: 10-28-2022 End: 12-31-2022 take 1 tablet by mouth once daily at bedtime OLANZapine (ZYPREXA) 20 mg tablet Take 1 tablet by mouth daily at bedtime. 90 tablet 1 11/18/2022 12/31/2022 Discontinued Start: 09-27-2022 End: 10-28-2022 take 1 tablet by mouth once daily at bedtime OLANZapine (ZYPREXA) 15 mg tablet Take 1 tablet by mouth daily at bedtime. 30 tablet 1 09/27/2022 10/28/2022 Discontinued Start: 08-16-2022 End: 09-27-2022 take 1 tablet by mouth once daily at bedtime OLANZapine (ZYPREXA) 10 mg tablet Take 1 tablet by mouth daily at bedtime. 30 tablet 1 08/16/2022 09/27/2022 Discontinued Start: 07-19-2022 End: 08-18-2022 take 1 tablet by mouth once daily at bedtime OLANZapine (ZYPREXA) 5 mg tablet Take 1 tablet by mouth daily at bedtime. 30 tablet 1 07/19/2022 08/18/2022 Active Comment on above: Take 1 tablet by nathan th daily at bedtime. omeprazole 40 mg delayed release oral capsule (20 sources) Proton Pump Inhibitor Start: End: take 1 capsule by mouth once daily omeprazole (PRILOSEC) 40 mg capsule Indications: GERD without esophagitis Take 1 capsule by mouth once daily. 30 capsule 11 09/28/2023 Active Comment on above: [facility] OTC NUTRITIONAL SUPPLEMENT (13 sources) OTC NUTRITIONAL SUPPLEMENT Total Parenteral Nutrition: 90ml/hour for 1 hour, 182 ml/hr for 10 hours, 90ml/hr for 1 hour. Special Instructions: follow instructions on bag for missing additional solutions. flush with 10 cc NS before and after admin. Once a day Suspended OTC NUTRITIONAL SUPPLEMENT Total Parenteral Nutrition: 90ml/hour for 1 hour, 182 ml/hr for 10 hours, 90ml/hr for 1 hour. Special Instructions: follow instructions on bag for missing additional solutions. flush with 10 cc NS before and after admin. Once a day Active pantoprazole 40 mg delayed release oral tablet (20 sources) Proton Pump Inhibitor Start: 12-20-2024 End: 02-18-2025 take 1 tablet by mouth twice daily before mealtime, then take 4 tablets by mouth in the evening pantoprazole DR (PROTONIX) 40 mg tablet Take 1 tablet by mouth two times a day before meals at 6 am and 4 pm. 60 tablet 1 12/21/2024 11:01 AM EDT 12/20/2024 02/18/2025 Active Start: 10-12-2024 End: 11-11-2024 take 1 tablet by mouth twice daily pantoprazole DR (PROTONIX) 40 mg tablet Take 1 tablet by mouth two times a day. 60 tablet 10/12/2024 Active End: 10-12-2024 take 1 tablet by mouth once daily pantoprazole DR (PROTONIX) 40 mg tablet Take 40 mg by mouth once daily. 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 14 tablet 01/10/2025 01/17/2025 Active traZODone hydrochloride 100 mg oral tablet (20 sources) Serotonin Reuptake Inhibitor Start: 09-02-2023 End: 11-01-2023 take 2 tablets by mouth once daily at bedtime traZODone (DESYREL) 100 mg tablet Take 2 tablets by mouth daily at bedtime. 60 tablet 1 09/02/2023 11/01/2023 Active Start: 04-18-2023 End: 06-17-2023 take 2 tablets by mouth once daily at bedtime traZODone (DESYREL) 100 mg tablet Take 2 tablets by mouth daily at bedtime. 60 tablet 1 04/18/2023 06/17/2023 Active Start: 01-03-2023 End: 04-18-2023 take 1 tablet by mouth once daily at bedtime traZODone (DESYREL) 150 mg tablet Take 1 tablet by mouth daily at bedtime. 30 tablet 1 03/14/2023 04/18/2023 Discontinued Start: 09-27-2022 End: 10-27-2022 take 2 tablets by mouth once daily at bedtime traZODone (DESYREL) 100 mg tablet Take 2 tablets by mouth daily at bedtime. 60 tablet 1 09/27/2022 10/27/2022 Active Start: 07-19-2022 End: 09-15-2022 take 2 tablets by mouth once daily at bedtime traZODone (DESYREL) 100 mg tablet Take 2 tablets by mouth daily at bedtime. 60 tablet 1 08/16/2022 09/15/2022 Active Start: 05-31-2022 End: 06-30-2022 take 1 tablet by mouth once daily at bedtime traZODone (DESYREL) 150 mg tablet Take 1 tablet by mouth daily at bedtime. 30 tablet 2 05/31/2022 06/30/2022 Active Start: 11-12-2021 End: 01-27-2022 take 0.5 tablet by mouth once daily at bedtime traZODone (DESYREL) 150 mg tablet Take 0.5 tablets by mouth daily at bedtime. 60 tablet 5 11/12/2021 01/27/2022 Discontinued (Side Effects) Start: 01-27-2021 End: 11-12-2021 take 2 tablets by mouth once daily at bedtime traZODone (DESYREL) 150 mg tablet Take 2 tablets by mouth daily at bedtime. 60 tablet 5 09/21/2021 11/12/2021 Discontinued (Adjust Sig - Block E-Cancel) Comment on above: Take 2 tablets by mo uth daily at bedtime. Take 0.5 tablets by mouth daily at bedtime. Take 1 tablet by nathan th daily at bedtime. 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 TAKE DIRECTED PENDING LAB RESULTS 60 tablet 01/24/2025 03/25/2025 Active Start: 01-10-2025 End: 03-11-2025 take 1 tablet by mouth once daily warfarin (COUMADIN) 5 mg tablet Take 1 tablet by mouth once daily. TAKE DIRECTED PENDING LAB RESULTS 60 tablet 01/10/2025 01/24/2025 Discontinued Completed/Discontinued Medications Medication Drug Class(es) Dates Sig (Normalized) Sig (Original) ALPRAZolam 1 mg oral tablet (18 sources) Benzodiazepine Start: 01-11-2022 End: 07-19-2022 take 1 tablet by mouth once daily as needed ALPRAZolam (XANAX) 1 mg tablet Indications: ELIJAH (generalized anxiety disorder) Take 1 tablet by mouth once daily as needed for up to 30 days. 30 tablet 0 02/11/2022 07/19/2022 Discontinued (Other) Start: 10-27-2021 End: 12-27-2021 take 1 tablet by mouth once daily as needed ALPRAZolam (XANAX) 1 mg tablet Indications: ELIJAH (generalized anxiety disorder) Take 1 tablet by mouth once daily as needed for up to 30 days. 30 tablet 0 11/27/2021 12/27/2021 Active Start: 03-04-2021 End: 03-24-2021 take 0.5-1 tablets by mouth twice daily as needed ALPRAZolam (XANAX) 0.5 mg tablet Indications: Panic attacks Take 1/2-1 tablet by mouth twice daily as needed. 56 tablet 03/04/2021 03/24/2021 Comment on above: Take 1 tablet by nathan once daily as needed for up to 30 days. amphetamine aspartate 5 mg / amphetamine sulfate 5 mg / dextroamphetamine saccharate 5 mg / dextroamphetamine sulfate 5 mg oral tablet (20 sources) Central Nervous System Stimulant Start: 02-13-20 End: 07-19-19 take 1 tablet by mouth twice daily dextroamphetamine-amp hetamine (ADDERALL) 20 mg tablet Indications: ADD (attention deficit disorder) without hyperactivity Take 1 tablet by mouth twice daily for 30 days. 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 60 tablet 03/04/2021 04/09/2021 Discontinued Comment on above: Take 1 tablet by nathan twice daily for 30 days. ascorbic acid 1000 mg oral tablet (20 sources) Vitamin C Start: 2021 End: 2023 take 1 tablet by mouth once daily Ascorbic Acid (VITAMIN C) 1,000 mg tablet Indications: Iron deficiency Take 1 tablet by mouth once daily. 60 tablet 3 08/03/2021 05/18/2024 Discontinued (Discontinued by Patient) Comment on above: Take 1 tablet by nathan once daily. aspirin 81 mg chewable tablet (20 sources) Platelet Aggregation Inhibitor, Nonsteroidal Anti-inflammatory Drug Start: 2024 End: 2024 take 1 tablet by mouth once daily aspirin 81 mg chewable tablet Take 1 tablet by mouth once daily. 09/04/2024 11/28/2024 Discontinued atorvastatin 40 mg oral tablet (20 sources) HMG-CoA Reductase Inhibitor Start: 2024 End: 2024 take 1 tablet by mouth once daily at bedtime atorvastatin (LIPITOR) 40 mg tablet Take 1 tablet by mouth daily at bedtime. 90 tablet 09/03/2024 11/28/2024 Discontinued atropine sulfate 0.025 mg / diphenoxylate hydrochloride 2.5 mg oral tablet (1 source) Anticholinergic, Cholinergic Muscarinic Antagonist, Antidiarrheal take 2 tablets by mouth every six hours as needed diphenoxylate-atropi ne (LOMOTIL) 2.5-0.025 mg per tablet Take 2 tablets by mouth four times a day as needed (high ostomy output). Suspended calcium polycarbophil 625 mg oral tablet (8 sources) End: 2024 calcium polycarbophil (FIBER) 625 mg tablet Take 1,250 mg by mouth three times a day. 12/27/2024 Discontinued (Adjust Sig - Block E-Cancel) cholecalciferol 0.05 mg oral capsule (20 sources) Vitamin D Start: 2020 End: 2023 take 1 capsule by mouth once daily Cholecalciferol, Vitamin D3, (VITAMIN D-3) 50 mcg (2,000 unit) cap Indications: Vitamin D deficiency Take 1 capsule by mouth once daily. 30 capsule 12/12/2020 05/18/2024 Discontinued (Discontinued by Patient) Comment on above: [facility] codeine phosphate 2 mg/ml / guaiFENesin 20 mg/ml oral solution (3 sources) Opioid Agonist Start: 2024 End: 2024 take 5 mL by mouth four times daily as needed codeine-guaiFENesin (ROBITUSSIN AC) 10-100 mg/5 mL syrup Indications: Productive cough Take 5 mL by mouth four times a day as needed for up to 5 days. 100 mL 08/16/2024 08/21/2024 Suspended diclofenac sodium 0.01 mg/mg topical gel (20 sources) Nonsteroidal Anti-inflammatory Drug Start: 2021 apply 2 g topically every twelve hours as needed diclofenac (VOLTAREN ARTHRITIS PAIN) 1 % topical gel Apply 2 g to affected area twice daily as needed (joint pain hand or knee). 100 g 1 07/22/2021 Suspended Comment on above: Apply 2 g to affecte d area twice daily as needed (joint pain hand or knee). 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 Expel 0.4 mL from syringe then inject 60 mg subcutaneously twice daily 28 mL 01/10/2025 01/24/2025 Discontinued Start: 10-12-2024 End: 11-11-2024 inject 90 mg by subcutaneous injection every twelve hours enoxaparin (LOVENOX) 100 mg/mL syrg Inject 0.9 mL subcutaneously every 12 hours. 60 mL 10/12/2024 11/11/2024 Active Start: 09-03-2024 End: 10-12-2024 inject 95 mg by subcutaneous injection every twelve hours enoxaparin (LOVENOX) 100 mg/mL syrg Inject 0.95 mL subcutaneously every 12 hours. 09/03/2024 10/12/2024 Discontinued End: 12-21-2024 inject 0.1 mL by subcutaneous injection twice daily enoxaparin (LOVENOX) 100 mg/mL syrg Expel 0.1 mL from syringe then inject 90 mg subcutaneously twice daily 12/21/2024 Discontinued Ethinyl Estradiol / norgestimate (20 sources) Progestin, Estrogen Start: 08-07-2024 take 1 tablet by mouth once daily norgestimate 0.25 mg-ethinyl estradiol 35 mcg (SPRINTEC) 0.25-35 mg-mcg per tablet Take 1 tablet by mouth once daily. Okay to skip placebo week and start on next package 112 tablet 3 08/07/2024 Suspended Start: 08-07-2024 take 1 tablet by nathan once daily norgestimate 0.25 mg-ethinyl estradiol 35 mcg (SPRINTEC) 0.25-35 mg-mcg per tablet Take 1 tablet by mouth once daily. Okay to skip placebo week and start on next package 112 tablet 3 08/07/2024 Active Start: 12-15-2023 End: 08-07-2024 take 1 tablet by mouth once daily norgestimate 0.25 mg-ethinyl estradiol 35 mcg (SPRINTEC) 0.25-35 mg-mcg per tablet Take 1 tablet by mouth once daily. Okay to skip placebo week and start on next package 112 tablet 3 12/15/2023 08/07/2024 Discontinued Start: 12-15-2023 take 1 tablet by nathan th once daily norgestimate 0.25 mg-ethinyl estradiol 35 mcg (SPRINTEC) 0.25-35 mg-mcg per tablet Take 1 tablet by mouth once daily. Okay to skip placebo week and start on next package 112 tablet 3 12/15/2023 Active Start: 03-15-2023 End: 12-12-2023 take 1 tablet by mouth once daily norgestimate 0.25 mg-ethinyl estradiol 35 mcg (SPRINTEC) 0.25-35 mg-mcg per tablet Take 1 tablet by mouth once daily. Okay to skip placebo week and start on next package 112 tablet 3 03/15/2023 12/12/2023 Discontinued Start: 03-15-2023 take 1 tablet by nathan th once daily norgestimate 0.25 mg-ethinyl estradiol 35 mcg (SPRINTEC) 0.25-35 mg-mcg per tablet Take 1 tablet by mouth once daily. Okay to skip placebo week and start on next package 112 tablet 3 03/15/2023 Active Start: 08-09-2022 End: 03-15-2023 take 1 tablet by mouth once daily norgestimate 0.25 mg-ethinyl estradiol 35 mcg (SPRINTEC) 0.25-35 mg-mcg per tablet Take 1 tablet by mouth once daily. Okay to skip placebo week and start on next package 112 tablet 3 08/09/2022 03/15/2023 Discontinued Start: 08-09-2022 take 1 tablet by nathan th once daily norgestimate 0.25 mg-ethinyl estradiol 35 mcg (SPRINTEC) 0.25-35 mg-mcg per tablet Take 1 tablet by mouth once daily. Okay to skip placebo week and start on next package 112 tablet 3 08/09/2022 Active Start: 07-20-2021 End: 08-08-2022 take 1 tablet by mouth once daily norgestimate 0.25 mg-ethinyl estradiol 35 mcg (SPRINTEC) 0.25-35 mg-mcg per tablet Take 1 tablet by mouth once daily. Okay to skip placebo week and start on next package 112 tablet 3 07/20/2021 08/08/2022 Discontinued Start: 07-20-2021 take 1 tablet by nathan th once daily norgestimate 0.25 mg-ethinyl estradiol 35 mcg (SPRINTEC) 0.25-35 mg-mcg per tablet Take 1 tablet by mouth once daily. Okay to skip placebo week and start on next package 112 tablet 3 07/20/2021 Active Start: 10-24-2020 End: 07-20-2021 take 1 tablet by mouth once daily norgestimate 0.25 mg-ethinyl estradiol 35 mcg (SPRINTEC) 0.25-35 mg-mcg per tablet Indications: Well woman exam with routine gynecological exam Take 1 tablet by mouth once daily. Okay to skip placebo week and start on next package 4 Package 1 10/24/2020 07/20/2021 Discontinued Comment on above: Take 1 tablet by nathan once daily. Okay to skip placebo week and start on next package 1 ml fentaNYL 0.05 mg/ml injection (1 source) Opioid Agonist Start: 08-20-2024 End: 08-20-2024 50 mcg, INTRAVENOUS, ONCE, 1 dose, On Tue08/20/24 at 1100 Start: 08-20-2024 End: 08-20-2024 50 mcg, INTRAVENOUS, ONCE, 1 dose, On Tue08/20/24 at 1100 ferrous gluconate 324 mg oral tablet (20 sources) Start: 12-12-2020 End: 05-18-2024 take 1 tablet by mouth twice daily at mealtime ferrous gluconate 324 mg (37.5 mg iron) tablet Indications: Iron deficiency anemia, unspecified iron deficiency anemia type Take 1 tablet by mouth twice daily with meals. 60 tablet 11 11/04/2021 05/18/2024 Discontinued (Discontinued by Patient) Comment on above: Take 1 tablet by nathan th twice daily with meals. ferrous sulfate 325 mg oral tablet (6 sources) take 1 tablet by mouth once daily ferrous sulfate 325 mg (65 mg iron) tablet Take 1 tablet by mouth once daily. Suspended FLUoxetine 40 mg oral capsule (6 sources) Serotonin Reuptake Inhibitor Start: 08-12-2021 End: 10-23-2021 take 1 capsule by mouth once daily FLUoxetine HCl (PROZAC) 40 mg capsule Take 1 capsule by mouth once daily. 30 capsule 5 08/12/2021 10/23/2021 Discontinued Start: 12-12-2020 End: 10-23-2021 take 1 capsule by mouth once daily FLUoxetine (PROZAC) 20 mg capsule Indications: Anxiety with depression Take 1 capsule by mouth once daily. In addition to 40mg capsule for total of 60mg daily. 30 capsule 3 12/12/2020 10/23/2021 Discontinued Start: 06-17-2020 End: 03-12-2021 take 1 capsule by mouth once daily FLUoxetine HCl (PROZAC) 40 mg capsule Take 1 capsule by mouth once daily. 30 capsule 5 06/17/2020 03/12/2021 Discontinued Comment on above: [facility] In addition to 40mg capsule for total of 60mg daily. [facility] fluticasone propionate 0.05 mg/actuat metered dose nasal spray (3 sources) Corticosteroid Start: End: take 2 spray(s) by mouth once daily fluticasone (FLONASE) 50 mcg/actuation nasal spray Use 2 Sprays in each nostril once daily. Rinse mouth after use. 1 Bottle 1 01/02/2021 10/23/2021 Discontinued Comment on above: Use 2 Sprays in each nostril once daily. Rinse mouth after use. hydrocortisone 0.01 mg/mg topical ointment (4 sources) Corticosteroid Start: End: hydrocortisone (AQUAPHOR ITCH RELIEF) 1 % ointment Indications: Eczema, unspecified type Apply to affected area two times a day. 453.6 g 1 08/16/2024 Suspended ibuprofen 800 mg oral tablet (20 sources) Nonsteroidal Anti-inflammatory Drug Start: End: 11-14-2 022 take 1 tablet by mouth every eight hours as needed for pain ibuprofen (MOTRIN) 800 mg tablet Indications: Muscle spasm of back , Acute bilateral thoracic back pain Take 1 tablet by mouth every 8 hours as needed for pain. Take with food. 60 tablet 1 05/11/2022 Suspended Start: 03-04-2021 End: 04-09-2021 take 1 tablet by mouth every eight hours as needed for pain ibuprofen (MOTRIN) 800 mg tablet Indications: Muscle spasm of back , Acute bilateral thoracic back pain Take 1 tablet by mouth every 8 hours as needed for pain. Take with food. 60 tablet 1 03/04/2021 04/09/2021 Discontinued Comment on above: Take 1 tablet by nathan th every 8 hours as needed for pain. Take with food. 4 ml labetalol hydrochloride 5 mg/ml cartridge (11 sources) beta-Adrenergic Frandy Start: 09-04-19 End: 10-03-19 take 10 mg intravenously every four hours as needed labetalol (NORMODYNE) 20 mg/4 mL (5 mg/mL) syrg Inject 2 mL intravenously every 4 hours as needed (SBP >160). 09/03/2024 10/02/2024 Discontinued lamoTRIgine 150 mg oral tablet (20 sources) Mood Stabilizer, Anti-epileptic Agent Start: 07-08-19 End: 05-18-20 take 1 tablet by mouth once daily lamoTRIgine (LAMICTAL) 150 mg tablet Take 1 tablet by mouth once daily. 90 tablet 09/02/2023 05/18/2024 Discontinued (Discontinued by Patient) Start: 01-27-2022 End: 06-12-2023 take 1 tablet by mouth once daily lamoTRIgine (LAMICTAL) 150 mg tablet Take 1 tablet by mouth once daily. 90 tablet 0 03/14/2023 06/12/2023 Active Start: 12-24-2021 End: 01-27-2022 take 1 tablet by mouth once daily lamoTRIgine (LAMICTAL) 100 mg tablet Take 1 tablet by mouth once daily. 30 tablet 1 12/24/2021 01/27/2022 Discontinued Start: 11-12-2021 End: 12-26-2021 take 1 tablet by mouth once daily, then take 2 tablets by mouth once daily lamoTRIgine (LAMICTAL) 25 mg tablet Take 1 tablet by mouth once daily for 14 days, THEN 2 tablets once daily. 74 tablet 0 11/12/2021 12/24/2021 Discontinued (Course of therapy completed) Start: 04-16-2021 End: 10-23-2021 take 1 tablet by mouth once daily lamoTRIgine (LAMICTAL) 200 mg tablet Indications: Bipolar affective disorder, current episode mixed, current episode severity unspecified (HCC) Take 1 tablet by mouth once daily. 90 tablet 0 04/16/2021 10/23/2021 Discontinued Start: 12-12-2020 End: 04-09-2021 take 1 tablet by mouth once daily lamoTRIgine (LAMICTAL) 200 mg tablet Indications: Bipolar affective disorder, current episode mixed, current episode severity unspecified (HCC) Take 1 tablet by mouth once daily. 90 tablet 12/12/2020 04/09/2021 Discontinued Comment on above: Take 1 tablet by nathan th once daily. Take 1 tablet by nathan once daily for 14 days, THEN 2 tablets once daily. 10 ml lidocaine hydrochloride 10 mg/ml injection (1 source) Antiarrhythmic, Amide Local Anesthetic Start: 08-20-2024 End: 08-20-2024 2.5 mg (0.25 mL), INTRADERMAL, ONCE, 1 dose, On Tue08/20/24 at 1100 Start: 08-20-2024 End: 08-20-2024 2.5 mg (0.25 mL), INTRADERMA L, ONCE, 1 dose, On Tue08/20/24 at 1100 loperamide hydrochloride 2 mg oral capsule (20 sources) Opioid Agonist Start: 10-26-2024 End: 02-23-2025 take 2 capsules by mouth three times daily loperamide (IMODIUM) 2 mg cap(s) Take 2 capsules by mouth three times a day. 180 capsule 3 10/26/2024 02/23/2025 Suspended Start: 09-03-2024 take 1 capsule by mo [facility] at bedtime loperamide (IMODIUM) 2 mg cap(s) Take 1 capsule by mouth before meals and at bedtime. 09/03/2024 Active magnesium oxide 400 mg oral tablet (13 sources) End: 11-28-2024 take 1 tablet by mouth once daily magnesium oxide (MAG-OX) 400 mg (241.3 mg magnesium) tablet Take 400 mg by mouth once daily. 11/28/2024 Discontinued methylPREDNISolone (3 sources) Corticosteroid Start: 08-16-2024 End: 08-22-2024 methylPREDNISolone (MEDROL, JULIAN,) 4 mg Dose-Pack Indications: Productive cough Take as instructed per package. 21 tablet 08/16/2024 08/22/2024 Suspended Start: 08-16-2024 End: 08-22-2024 methylPREDNISolone (MEDROL, JULIAN,) 4 mg Dose-Pack Indications: Productive cough Take as instructed per package. 21 tablet 08/16/2024 08/22/2024 Active Start: 08-16-2024 End: 08-16-2024 methylPREDNISolone (MEDROL, JULIAN,) 4 mg Dose-Pack Indications: Productive cough Take as instructed per package. 21 tablet 08/16/2024 08/16/2024 Discontinued 5 ml metoprolol tartrate 1 mg/ml injection (4 sources) beta-Adrenergic Frandy Start: 08-20-2024 End: 08-20-2024 5 mg, INTRAVENOUS, ONCE, 1 dose, On Tue08/20/24 at 1100, Administer IV push over 2-5 minutes. Start: 08-20-2024 End: 08-20-2024 5 mg, INTRAVENOUS, ONCE, 1 d ose, On Tue08/20/24 at 1100, Administer IV push over 2-5 minutes. Start: 05-04-2021 End: 10-23-2021 take 1 tablet by mouth once daily metoprolol succinate ER (TOPROL XL) 25 mg 24 hr tablet Indications: Ocular migraine Take 1 tablet by mouth once daily. 30 tablet 3 05/04/2021 10/23/2021 Discontinued Comment on above: Take 1 tablet by nathan once daily. midodrine hydrochloride 5 mg oral tablet (1 source) alpha-Adrenergic Agonist midodrine (PROAMITIN E) 5 mg tablet Take 10 mg by mouth three times a day. Suspended naloxone hydrochloride 40 mg/ml nasal spray (18 sources) Opioid Antagonist Start: 12-20-2024 End: 12-27-2024 naloxone 4 mg/actuation nasal spray (NARCAN) Use 1 spray in one nostril as needed for overdose. May repeat every 2 to 3 minutes in alternating nostrils until medical assistance is available 2 each 12/21/2024 11:01 AM EDT 12/20/2024 12/27/2024 Discontinued (Adjust Sig - Block E-Cancel) Start: 09-03-2024 End: 10-02-2024 naloxone (NARCAN) 0.4 mg/mL soln Inject 0.25 mL intramuscularly as needed for known or suspected opioid overdose. 09/03/2024 10/02/2024 Discontinued Start: 09-03-2024 naloxone (NARC AN) 0.4 mg/mL soln Inject 0.25 mL intramuscularly as needed for known or suspected opioid overdose. 09/03/2024 Active Nitroprusside (1 source) Start: 08-20-2024 End: 08-20-2024 10-200 mcg/min (1.5-30 mL/hr), INTRAVENOUS, CONTINUOUS, Starting on Tue08/20/24 at 1100, Until Tue08/20/24 at 1100, Refrigerate - Protect From Light, Select One: Titrate, Choose target parameter: Systolic Blood Pressure (SBP), Titrate to a SBP (mmHg): Specify Range (mmHg), SBP lower limit (mmHg): 100, SBP upper limit (mmHg): 130, Starting Dose: 10-20 mcg/min or Continue at Current Infusion Rate, Titrate Amount/Interval: Titrate by 5-20 mcg/min every 5-10 minutes., Contact LIP: If dose adjusted by more than 120 mcg/min within 30 minutes., If this medication is paused for any duration of time and needs to be restarted: Restart at 10-20 mcg/min and titrate per order parameters. 2 ml ondansetron 2 mg/ml injection (14 sources) Serotonin-3 Receptor Antagonist Start: 08-20-2024 End: 08-20-2024 4 mg, INTRAVENOUS, ONCE, 1 dose, On Tue08/20/24 at 1100, Give IV push over 2 minutes take 1 tablet by nathan th every eight hours as needed ondansetron orally disintegrating (ZOFRA N ODT) 4 mg disintegrating tablet Take 4 mg by mouth every 8 hours as needed for nausea/vomiting. Active microencapsulated potassium chloride 20 meq extended release oral tablet (13 sources) Start: 10-26-2024 End: 02-23-2025 take 2 tablets by mouth once daily potassium chloride ER (KLOR-CON M20) 20 mEq tablet Take 2 tablets by mouth once daily. 60 tablet 3 10/26/2024 02/23/2025 Suspended Start: 08-10-2024 End: 11-08-2024 take 2 tablets by mouth once potassium chloride 20 mEq TbER Indications: Hypokalemia Take 2 tablets by mouth every afternoon. 60 tablet 2 08/10/2024 11/08/2024 Suspended Start: 07-30-2024 take 2 tablets by mouth once p otassium chloride 20 mEq TbER Take 2 tablets by mouth every afternoon. 07/30/2024 Active prazosin 2 mg oral capsule (20 sources) alpha-Adrenergic Frandy Start: 05-18-2024 End: 09-15-2024 take 1 capsule by mouth once daily at bedtime prazosin (MINIPRESS) 2 mg cap Take 1 capsule by mouth daily at bedtime. 30 capsule 3 05/18/2024 09/15/2024 Suspended Start: 09-02-2023 End: 12-31-2023 take 1 capsule by mouth once daily at bedtime prazosin (MINIPRESS) 2 mg cap Take 1 capsule by mouth daily at bedtime. 30 capsule 3 09/02/2023 12/31/2023 Active Start: 09-27-2022 End: 10-27-2022 take 1 capsule by mouth once daily at bedtime prazosin (MINIPRESS) 2 mg cap Take 1 capsule by mouth daily at bedtime. 30 capsule 2 09/27/2022 10/27/2022 Active Start: 07-19-2022 End: 08-18-2022 take 1 capsule by mouth once daily at bedtime prazosin (MINIPRESS) 2 mg cap Take 1 capsule by mouth daily at bedtime. 30 capsule 2 07/19/2022 08/18/2022 Active Start: 05-31-2022 End: 06-30-2022 take 1 capsule by mouth once daily at bedtime prazosin (MINIPRESS) 2 mg cap Take 1 capsule by mouth daily at bedtime. 30 capsule 2 05/31/2022 06/30/2022 Active Start: 12-24-2021 End: 01-23-2022 take 1 capsule by mouth once daily at bedtime prazosin (MINIPRESS) 2 mg cap Take 1 capsule by mouth daily at bedtime. 0 12/24/2021 01/23/2022 Active Start: 11-04-2021 End: 12-24-2021 take 1 capsule by mouth twice daily prazosin (MINIPRESS) 1 mg cap Take 1 capsule by mouth twice daily. 30 capsule 2 11/04/2021 12/24/2021 Discontinued (Adjust Sig - Block E-Cancel) Start: 03-06-2021 End: 11-03-2021 take 1 capsule by mouth once daily at bedtime prazosin (MINIPRESS) 1 mg cap TAKE 1 CAPSULE BY MOUTH EVERYDAY AT BEDTIME 30 capsule 2 03/06/2021 11/03/2021 Discontinued Comment on above: TAKE 1 CAPSULE BY MO UTH EVERYDAY AT BEDTIME Take 1 capsule by mo uth twice daily. Take 1 capsule by mo uth daily at bedtime. propranolol hydrochloride 10 mg oral tablet (16 sources) beta-Adrenergic Frandy Start: 2 End: 2 take 1 tablet by mouth twice daily propranolol (INDERAL) 10 mg tablet Take 1 tablet by mouth twice daily. 60 tablet 0 01/27/2022 05/31/2022 Discontinued (Side Effects) Start: 12-24-2021 End: 01-27-2022 take 1 tablet by mouth twice daily propranolol (INDERAL) 20 mg tablet Take 1 tablet by mouth twice daily. 60 tablet 1 12/24/2021 01/27/2022 Discontinued (Side Effects) Comment on above: Take 1 tablet by nathan th twice daily. QUEtiapine 100 mg oral tablet (14 sources) Atypical Antipsychotic Start: 2 End: 2 take 1 tablet by mouth once daily at bedtime QUEtiapine (SEROQUEL) 100 mg tablet Take 1 tablet by mouth daily at bedtime. 30 tablet 1 03/04/2022 05/31/2022 Discontinued (Side Effects) Start: 01-27-2022 End: 03-04-2022 take 1 tablet by mouth once daily at bedtime QUEtiapine (SEROQUEL) 50 mg tablet Take 1 tablet by mouth daily at bedtime. 30 tablet 1 01/27/2022 03/04/2022 Discontinued Comment on above: Take 1 tablet by nathan th daily at bedtime. rizatriptan 5 mg disintegrating oral tablet (2 sources) Serotonin-1b and Serotonin-1d Receptor Agonist Start: End: take 1 tablet by mouth every two hours as needed rizatriptan (MAXALT CRACK OFF PERSON) 5 mg disintegrating tablet Indications: Ocular migraine Take 1 tablet by mouth as needed. May repeat in 2 hours if needed 9 tablet 1 05/04/2021 10/23/2021 Discontinued Comment on above: Take 1 tablet by [facility] as needed. May repeat in 2 hours if needed sodium phosphate, dibasic 59.3 mg/ml / sodium phosphate, monobasic 161 mg/ml enema (1 source) Start: End: take 133 mL rectal route once sodium phosphate-sodium bisphosphate (FLEET ENEMA) enema 133 mL by RECTAL route one time only for 1 dose. The evening prior to EGD and colonoscopy. 133 mL 10/11/2024 10/12/2024 Discontinued triamcinolone acetonide 1 mg/ml topical cream (6 sources) Corticosteroid Start: End: triamcinolone acetonide (KENALOG) 0.1 % cream Indications: Productive cough , Eczema, unspecified type Apply to affected area two times a day. 453.6 g 1 08/16/2024 Suspended Start: 08-16-2024 End: 08-16-2024 triamcinolone acetonide 40 m g injection (KeNALog 40) Start: 08-16-2024 End: 08-16-2024 inject 1 dose by intramuscular injection once 40 mg, INTRAMUSCULAR, ONCE, 1 dose, On Debi 08/16/24 at 1030 300 ml vancomycin 5 mg/ml injection (6 sources) Glycopeptide Antibacterial Start: 09-28-2024 End: 10-12-2024 vancomycin/water for inj, PEG, (VANCOMYCIN-DILUENT COMBO NO.1) 1.5 gram/300 mL pgbk Inject 1,000 mg intravenously two times a day. 09/28/2024 10/12/2024 Discontinued Problems Active Problems Problem Classification Problem Date Documented Date Episodic/Chronic Acute and unspecified renal failure (4 sources) Acute kidney failure, unspecified; Translations: [Acute kidney failure, unspecified] Onset: Episodic Acute cerebrovascular disease (4 sources) Cerebral infarction; Translations: [Other cerebral infarction due to occlusion or stenosis of small artery] Onset: 5 09-11-2024 Chronic Adjustment disorders (20 sources) Adjustment disorder with depressed mood; Translations: [Adjustment disorder with depressed mood] Onset: 7 06-22-2021 Chronic Administrative/social admission (1 source) Stress; Translations: [Other specified problems related to psychosocial circumstances] 05-20-2024 Episodic Alcohol-related disorders (1 source) Alcohol abuse; Translations: [Alcohol abuse, uncomplicated] Chronic Allergic reactions (4 sources) Allergy status to narcotic agent status; Translations: [Eczema] Onset: 8 08-16-2024 Episodic Anxiety disorders (20 sources) Anxiety disorder, unspecified; Translations: [Anxiety state] Onset: 7 06-22-2021 Chronic Aortic and peripheral arterial embolism or thrombosis (20 sources) Thrombosis of aorta; Translations: [Embolism and thrombosis of unspecified parts of aorta] Onset: 5 08-21-2024 Chronic Bacterial infection; unspecified site (1 source) Bacteremia; Translations: [Bacteremia] Onset: Episodic Chronic ulcer of skin (20 sources) Non-pressure chronic ulcer of other part of left foot with unspecified severity; Translations: [Ulcer of other part of foot] Onset: 5 11-29-2024 Chronic Coagulation and hemorrhagic disorders (20 sources) Hypercoagulability state; Translations: [Other primary thrombophilia] Onset: 5 08-27-2024 Chronic Complications of surgical procedures or medical care (20 sources) Acquired short bowel syndrome; Translations: [Acquired short bowel syndrome] Onset: 5 08-27-2024 Chronic Crushing injury or internal injury (1 source) Unspecified injury of superior mesenteric artery, initial encounter; Translations: [Unspecified injury of superior mesenteric artery, initial encounter] Onset: Episodic Deficiency and other anemia (1 source) Iron deficiency anemia; Translations: [Iron deficiency anemia, unspecified] Episodic Deficiency and other anemia (20 sources) Hemoglobin low; Translations: [Anemia, unspecified] Onset: 5 08-07-2024 Episodic Deficiency and other anemia (3 sources) Anemia; Translations: [Anemia, unspecified] 08-07-2024 Episodic Deficiency and other anemia (1 source) Iron deficiency anemia, unspecified; Translations: [Iron deficiency anemia, unspecified] Onset: Episodic Deficiency and other anemia (2 sources) Anemia, unspecified; Translations: [Anemia, unspecified type] Onset: Episodic Diabetes mellitus with complications (20 sources) Hyperglycemia due to diabetes mellitus; Translations: [Type 2 diabetes mellitus with hyperglycemia] Onset: 5 08-27-2024 Chronic Diabetes mellitus without complication (1 source) Type 2 diabetes mellitus without complications; Translations: [Type 2 diabetes mellitus without complications] Onset: Chronic Disorders of lipid metabolism (4 sources) Hyperlipidemia, unspecified; Translations: [Hyperlipidemia, unspecified] Onset: Chronic Disorders usually diagnosed in infancy, childhood, or adolescence (4 sources) Attention deficit hyperactivity disorder, predominantly inattentive type; Translations: [Other specified behavioral and emotional disorders with onset usually occurring in childhood and adolescence] Chronic E Codes: Unspecified (1 source) Injury due to legal intervention; Translations: [Legal intervention, means unspecified, bystander injured, initial encounter] Episodic Esophageal disorders (3 sources) Gastroesophageal reflux disease without esophagitis; Translations: [Gastro-esophageal reflux disease without esophagitis] Onset: Chronic Fluid and electrolyte disorders (20 sources) Hypokalemia; Translations: [Hypokalemia] Onset: 5 08-07-2024 Episodic Gangrene (20 sources) Gangrene of toe; Translations: [Gangrene, not elsewhere classified] Onset: 5 11-29-2024 Episodic Gastrointestinal hemorrhage (1 source) Gastrointestinal hemorrhage, unspecified; Translations: [Gastrointestinal hemorrhage, unspecified] Onset: Episodic Genitourinary symptoms and ill-defined conditions (1 source) Other difficulties with micturition; Translations: [Other difficulties with micturition] Onset: Episodic Immunizations and screening for infectious disease (20 sources) Lupus anticoagulant disorder; Translations: [Raised antibody titer] Onset: 5 11-29-2024 Episodic Malaise and fatigue (1 source) Fatigue; Translations: [Other fatigue] Episodic Miscellaneous mental health disorders (2 sources) Insomnia disorder related to another mental disorder; Translations: [Insomnia due to other mental disorder] 05-20-2024 Chronic Miscellaneous mental health disorders (1 source) Anxiety about body function or health; Translations: [Other symptoms and signs involving emotional state] 01-11-2025 Episodic Mood disorders (20 sources) Bipolar affective disorder, current episode mixed; Translations: [Bipolar disorder, current episode mixed, unspecified] Onset: 2 Chronic Mood disorders (3 sources) Major depressive disorder, single episode, unspecified; Translations: [Mood disorders] Onset: 8 Nausea and vomiting (3 sources) Nausea with vomiting, unspecified; Translations: [Nausea with vomiting, unspecified] Onset: 5 Episodic Neoplasms of unspecified nature or uncertain behavior (20 sources) Monoclonal gammopathy (clinical); Translations: [Monoclonal gammopathy] Onset: 5 08-25-2024 Chronic Nutritional deficiencies (20 sources) Vitamin D deficiency; Translations: [Vitamin D deficiency, unspecified] Onset: 6 Resolved: 5 10-29-2015 Chronic Other aftercare (20 sources) Patient encounter status; Translations: [Other fdc (current) drug therapy] Onset: 5 Episodic Other aftercare (2 sources) Long-term current use of drug therapy; Translations: [Other fdc (current) drug therapy] 05-20-2024 Episodic Other aftercare (1 source) Wound ; Translations: [Encounter for other specified surgical aftercare] 09-19-2024 Episodic Other aftercare (2 sources) Surgical follow-up; Translations: [Encounter for removal of sutures] 09-19-2024 Episodic Other aftercare (1 source) Long-term current use of aspirin; Translations: [custodial (current) use of aspirin] 09-19-2024 Episodic Other aftercare (2 sources) Long-term current use of anticoagulant; Translations: [custodial (current) use of anticoagulants] 09-19-2024 Episodic Other aftercare (2 sources) 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; Translations: [Other fdc (current) drug therapy] Onset: 5 Episodic Other aftercare (1 source) informatica (current) use of aspirin; Translations: [custodial (current) use of aspirin] Onset: Episodic Other aftercare (3 sources) custodial (current) use of anticoagulants; Translations: [custodial (current) use of anticoagulants] Onset: Episodic Other aftercare (1 source) informatica (current) use of insulin; Translations: [informatica (current) use of insulin] Onset: Episodic Other aftercare (2 sources) Encounter for therapeutic drug level monitoring; Translations: [Encounter for therapeutic drug level monitoring] Onset: Episodic Other aftercare (1 source) Removal of sutures done; Translations: [Encounter for removal of sutures] 01-14-2025 Episodic Other aftercare (1 source) Peripherally inserted central venous catheter in situ; Translations: [Encounter for adjustment and management of vascular access device] 01-28-2025 Episodic Other bone disease and musculoskeletal deformities (2 sources) Acquired absence of left foot; Translations: [Acquired absence of left foot] Onset: Chronic Other circulatory disease (2 sources) Disorder of artery; Translations: [Disorder of arteries and arterioles, unspecified] 10-11-2024 Chronic Other circulatory disease (1 source) Presence of other vascular implants and grafts; Translations: [Presence of other vascular implants and grafts] Onset: Chronic Other circulatory disease (1 source) Hypotension, unspecified; Translations: [Hypotension, unspecified] Onset: Episodic Other connective tissue disease (2 sources) Pain of bilateral hands; Translations: [Pain in right hand] Episodic Other connective tissue disease (1 source) Pain in both feet; Translations: [Pain in right foot] Episodic Other connective tissue disease (1 source) Muscle pain; Translations: [Myalgia, unspecified site] Episodic Other connective tissue disease (2 sources) Pain in left foot; Translations: [Pain in left foot] Onset: Episodic Other gastrointestinal disorders (1 source) Gastrostomy status; Translations: [Gastrostomy status] Onset: Chronic Other gastrointestinal disorders (2 sources) Ileostomy status; Translations: [Ileostomy status] Onset: 5 Chronic Other gastrointestinal disorders (2 sources) Diarrhea, unspecified; Translations: [Intractable diarrhea] Onset: 5 Episodic Other gastrointestinal disorders (20 sources) High output ileostomy; Translations: [Other specified symptoms and signs involving the digestive system and abdomen] Onset: 5 12-01-2024 Episodic Other gastrointestinal disorders (2 sources) Other specified symptoms and signs involving the digestive system and abdomen; Translations: [Other specified symptoms and signs involving the digestive system and abdomen] Onset: 5 Episodic Other hematologic conditions (1 source) Protein electrophoresis abnormal; Translations: [Other specified abnormalities of plasma proteins] 10-02-2024 Episodic Other lower respiratory disease (1 source) Productive cough ; Translations: [Productive cough] 08-16-2024 Episodic Other nervous system disorders (2 sources) Carpal tunnel syndrome, left upper limb; Translations: [Carpal tunnel syndrome, left upper limb] Onset: 8 Chronic Other nervous system disorders (20 sources) Carpal tunnel syndrome; Translations: [Carpal tunnel syndrome, unspecified upper limb] Onset: 7 10-12-2006 Chronic Other nervous system disorders (1 source) Postoperative pain ; Translations: [Other acute postprocedural pain] 01-14-2025 Episodic Other nervous system disorders (1 source) Other acute postprocedural pain; Translations: [Acute post-operative pain] Onset: Episodic Other non-traumatic joint disorders (1 source) Multiple joint pain; Translations: [Pain in unspecified joint] Episodic Other non-traumatic joint disorders (1 source) Pain in left knee; Translations: [Pain in joint, lower leg] 03-12-2021 Episodic Other nutritional; endocrine; and metabolic disorders (20 sources) Obese class I; Translations: [Obesity, Class I, BMI 30-34.9] Onset: 5 08-21-2024 Chronic Other nutritional; endocrine; and metabolic disorders (20 sources) Hypomagnesemia; Translations: [Hypomagnesemia] Onset: 5 08-21-2024 Chronic Other nutritional; endocrine; and metabolic disorders (1 source) Hypomagnesemia; Translations: [Hypomagnesemia] Onset: 5 Chronic Other nutritional; endocrine; and metabolic disorders (20 sources) Feeding problem; Translations: [Feeding difficulties] Onset: 5 08-27-2024 Episodic Other screening for suspected conditions (not mental disorders or infectious disease) (2 sources) Elevated C-reactive protein; Translations: [Elevated C-reactive protein (CRP)] Episodic Peripheral and visceral atherosclerosis (20 sources) Occlusion of artery; Translations: [Unspecified atherosclerosis] Onset: 5 Resolved: 5 08-20-2024 Chronic Pulmonary heart disease (1 source) Personal history of pulmonary embolism; Translations: [Personal history of pulmonary embolism] Onset: Episodic Residual codes; unclassified (1 source) Acquired absence of other specified parts of digestive tract; Translations: [Acquired absence of other specified parts of digestive tract] Onset: Episodic Residual codes; unclassified (2 sources) Other specified postprocedural states; Translations: [Other specified postprocedural states] Onset: 5 Episodic Screening and history of mental health and substance abuse codes (2 sources) Personal history of nicotine dependence; Translations: [Encounter for screening for depression] Onset: 5 Episodic Septicemia (except in labor) (3 sources) Sepsis, unspecified organism; Translations: [Sepsis, unspecified organism] Onset: 5 Episodic Skin and subcutaneous tissue infections (20 sources) Soft tissue infection; Translations: [Local infection of the skin and subcutaneous tissue, unspecified] Onset: 5 12-04-2024 Episodic Spondylosis; intervertebral disc disorders; other back problems (2 sources) Spasm of back muscles; Translations: [Muscle spasm of back] Episodic Substance-related disorders (20 sources) Nicotine dependence, cigarettes, uncomplicated; Translations: [History of clinical finding in subject] Onset: 8 Resolved: 9 Chronic Syncope (1 source) Syncope and collapse; Translations: [Syncope and collapse] Onset: 5 Episodic Unclassified (4 sources) NO SHOW Unclassified (1 source) APPOINTMENT CANCELLED 12-30-2023 Unclassified (3 sources) Acute lower limb ischemia 09-19-2024 Unclassified (1 source) 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 Onset: 5 11-08-2024 Unclassified (1 source) Long-term current use of drug therapy 01-11-2025 Unclassified (1 source) 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; Translations: [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] Onset: 5 Unclassified (1 source) Short bowel syndrome, 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; Translations: [Short bowel syndrome, 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] Onset: Unclassified (1 source) Acquired short bowel syndrome; Translations: [Acquired short bowel syndrome] Onset: 5 Past or Other Problems Problem Classification Problem Date Documented Da te Episodic/Chronic Abdominal pain (2 sources) Generalized abdominal pain; Translations: [Unspecified abdominal pain] Onset: 08-29-2024 Episodic Complications of surgical procedures or medical care (20 sources) Open wound of abdomen; Translations: [Open abdominal incision with drainage] Onset: 08-21-2024 08-21-2024 Episodic Conditions associated with dizziness or vertigo (1 source) Dizziness and giddiness; Translations: [Dizziness and giddiness] Onset: 08-14-2024 Episodic Diabetes mellitus without complication (20 sources) High hemoglobin A1c level; Translations: [Other abnormal glucose] Onset: 08-07-2024 08-07-2024 Episodic Nutritional deficiencies (20 sources) Iron deficiency; Translations: [Iron deficiency] Onset: 10-29-2015 10-29-2015 Episodic Other aftercare (20 sources) Drug therapy finding; Translations: [informatica (current) use of anticoagulants] Onset: 08-20-2024 08-20-2024 Episodic Other aftercare (20 sources) Insulin dose changed; Translations: [informatica (current) use of insulin] Onset: 08-30-2024 08-31-2024 Episodic Other circulatory disease (20 sources) Limb ischemia; Translations: [Other disorder of circulatory system] Onset: 08-20-2024 08-20-2024 Episodic Other circulatory disease (20 sources) Other disorder of circulatory system; Translations: [Unspecified circulatory system disorder] Onset: 08-21-2024 08-21-2024 Episodic Other connective tissue disease (2 sources) Pain in left hand; Translations: [Pain in left hand] Onset: 02-07-2018 Episodic Other connective tissue disease (20 sources) Nontraumatic compartment syndrome of right lower extremity; Translations: [Nontraumatic compartment syndrome of lower extremity] Onset: 08-21-2024 08-21-2024 Episodic Other connective tissue disease (20 sources) Nontraumatic compartment syndrome of left lower extremity; Translations: [Nontraumatic compartment syndrome of lower extremity] Onset: 08-21-2024 08-21-2024 Episodic Other connective tissue disease (1 source) Pain in right foot; Translations: [Pain in right foot] Onset: 08-27-2024 Episodic Other gastrointestinal disorders (20 sources) Diarrheal disorder; Translations: [Diarrhea, unspecified] Onset: 10-19-2024 Resolved: 10-26-2024 10-26-2024 Episodic Other injuries and conditions due to external causes (2 sources) Traumatic compartment syndrome of left upper extremity, initial encounter; Translations: [Traumatic compartment syndrome of left upper extremity, init] Onset: 02-07-2018 Episodic Other nervous system disorders (20 sources) Acute postoperative pain; Translations: [Other acute postprocedural pain] Onset: 08-20-2024 08-20-2024 Episodic Other nutritional; endocrine; and metabolic disorders (20 sources) Body mass index 30+ - obesity; Translations: [Obesity, unspecified] Onset: 10-29-2015 Resolved: 08-21-2024 10-29-2015 Chronic Other nutritional; endocrine; and metabolic disorders (20 sources) Unable to eat; Translations: [Other symptoms and signs concerning food and fluid intake] Onset: 08-21-2024 Resolved: 08-30-2024 08-21-2024 Episodic Peripheral and visceral atherosclerosis (20 sources) Acute vascular insufficiency of intestine; Translations: [Acute (reversible) ischemia of intestine, part and extent unspecified] Onset: 08-21-2024 08-21-2024 Episodic Poisoning by other medications and drugs (20 sources) Poisoning by unspecified drugs, medicaments and biological substances, accidental (unintentional), initial encounter; Translations: [Poisoning by unspecified drug or medicinal substance] Onset: 10-09-2024 10-09-2024 Episodic Residual codes; unclassified (20 sources) Disturbance in sleep behavior; Translations: [Sleep disturbances] Onset: 10-12-2006 10-12-2006 Episodic Residual codes; unclassified (20 sources) Delirium; Translations: [Disorientation, unspecified] Onset: 08-24-2024 Resolved: 08-30-2024 08-24-2024 Episodic Respiratory failure; insufficiency; arrest (adult) (20 sources) Ventilator finding; Translations: [Dependence on respirator [ventilator] status] Onset: 08-20-2024 Resolved: 08-23-2024 08-23-2024 Chronic Substance-related disorders (20 sources) Marijuana user; Translations: [Cannabis use, unspecified, uncomplicated] Onset: 08-24-2024 Resolved: 08-30-2024 Episodic Unclassified (1 source) Patient encounter status 08-08-2024 Results Test Name Value Interpretation Reference Range Facility Wound Ctr History AND Physic dorothy 01-17-2025 Wound Ctr History & Physical Normal [facility] L3410.9994on 01-15-2025 [facility] Misc. 2 COMMENT Normal . [facility] Comment on above: Order Comment: [id number] 0SELENIUM - ROYAL BLUE - PLASMA Result Comment: Test Ordered: [id number] Selenium, Serum/PlasmaTest(s) 401532-Hslteceo, Serum/Plasmawas developed and its performance characteristicsdetermined by [facility]. It has not been cleared or approvedby the Food and Drug Administration.Selenium, Serum/Plasma 100 ug/L Reference Range: 93-198Performed at: [facility] [address] [id number] Director: Kim Mayorga MD, Phone: [phone] at: [address] [id number] Director: Christian Alfaro PhD, Phone: [phone] Performed By: #### L 501.6710, L506.1001, L501.5000, L3410.9992, L3300.0100, L3410.9994, L3410.9996, L501.5200, L3300.8200, L7400.3000, L501.2300, L100.0500, L3300.9900, L503.0106, L500.4050 ####[facility] [id number] [place], [address] L3410.9996on 01-13-2025 [facility] Misc. 3 COMMENT Normal . [facility] Comment on above: Order Comment: [id number] 9VITAMIN A E - SERUM Result Comment: Test Ordered: [id number] Vitamin A and ETest(s) 313539-Dpbvpon E(Alpha Tocopherol); 256201-Lsbfgpr E(Gamma Tocopherol)was developed and its performance characteristicsdetermined by [facility]. It has not been cleared or approvedby the Food and Drug Administration.Vitamin A 32.4 ug/dL Reference Range: 20.1-62.0Reference intervals for vitamin A determined from [facility]. Individuals with vitamin A less than 20ug/dL are considered vitamin A deficient and those withserum concentrations less than 10 ug/dL are consideredseverely deficient.This test was developed and its performance characteristicsdetermined by [facility]. It has not been cleared orapproved by the Food and Drug Administration.Vitamin E(Alpha Tocopherol) 7.8 mg/L Reference Range: 7.0-25.1Vitamin E(Gamma Tocopherol) 1.1 mg/L Reference Range: 0.5-5.5Reference intervals for alpha and gamma-tocopheroldetermined from National Health and Nutrition ExaminationSurvey, 8408-0856. Individuals with alpha-tocopherol levelsless than 5.0 mg/L are considered vitamin E deficient.Performed at: [address] [id number] Director: Kim Mayorga MD, Phone: [phone] at: [address] [id number] Director: Christian Alfaro PhD, Phone: [phone] Performed By: #### L 501.6710, L506.1001, L501.5000, L3410.9992, L3300.0100, L3410.9994, L3410.9996, L501.5200, L3300.8200, L7400.3000, L501.2300, L100.0500, L3300.9900, L503.0106, L500.4050 ####[facility] [address] [place], [place], [address] Methylmalonic Acid [place] METHYLMAL ACID 239 nmol/L Normal 0-378 [facility] Comment on above: Order Comment: Test( s) 874193-Hetqbeivftjhf Acid, Serumwas developed and its performance characteristicsdetermined by [facility]. It has not been cleared or approvedby the Food and Drug Administration. Result Comment: Perf ormed at: [address] [id number] Director: Kim Mayorga MD, Phone: [phone] Performed By: #### L 501.6710, L506.1001, L501.5000, L3410.9992, L3300.0100, L3410.9994, L3410.9996, L501.5200, L3300.8200, L7400.3000, L501.2300, L100.0500, L3300.9900, L503.0106, L500.4050 ####[facility] [address] [place], [place], [id number] Copper, Serum or Plasmaon COPPER, SERUM 131 ug/dL Normal 80-158 [facility] Comment on above: Order Comment: Test( s) 802071-Pwspkxe B6was developed and its performance characteristicsdetermined by [facility]. It has not been cleared or approvedby the Food and Drug Administration. Result Comment: Dete ction Limit = 5 Performed By: #### L 501.6710, L506.1001, L501.5000, L3410.9992, L3300.0100, L3410.9994, L3410.9996, L501.5200, L3300.8200, L7400.3000, L501.2300, L100.0500, L3300.9900, L503.0106, L500.4050 ####[facility] [address] [place], [place], [phone] L3300.8200on 07-19-2025 VITAMIN B6 1.2 ug/L Low 3.4-65.2 [facility] Comment on above: Order Comment: Test( s) 429272-Ufgbzlq B6was developed and its performance characteristicsdetermined by [facility]. It has not been cleared or approvedby the Food and Drug Administration. Result Comment: Defi ciency: <3.4 Marginal: 3.4 - 5.1 Adequate: >5.1 Performed By: #### L 501.6710, L506.1001, L501.5000, L3410.9992, L3300.0100, L3410.9994, L3410.9996, L501.5200, L3300.8200, L7400.3000, L501.2300, L100.0500, L3300.9900, L503.0106, L500.4050 ####[facility] [address] [place], [address] L3410.9992on 01-12-2025 [facility]. COMMENT Normal . [facility] Comment on above: Order Comment: [id number] 5WB MANGANESE - ROYAL BLUE - WB Result Comment: Test Ordered: [id number] Manganese, BloodTest(s) 202742-Zgydicaaq, Bloodwas developed and its performance characteristicsdetermined by [facility]. It has not been cleared or approvedby the Food and Drug Administration.Manganese, Blood 8.8 ug/L SPOCO Reference Range: 8.0-18.7Performed at: [facility] [place] [address], [place] [id number] Director: Wendy Fowler MD, Phone: [phone] at: [address] [id number] Director: Christian Alfaro PhD, Phone: [phone] Performed By: #### L 501.6710, L506.1001, L501.5000, L3410.9992, L3300.0100, L3410.9994, L3410.9996, L501.5200, L3300.8200, L7400.3000, L501.2300, L100.0500, L3300.9900, L503.0106, L500.4050 ####[facility] [address] [place], [place], [address] Zinc, Plasma or Serumon 12-25 ZINC,PLASMA/SER 71 ug/dL Normal 44-115 [facility] Comment on above: Order Comment: Test( s) 477816-Yotjxqh B6was developed and its performance characteristicsdetermined by [facility]. It has not been cleared or approvedby the Food and Drug Administration. Result Comment: Dete ction Limit = 5Performed at: [address] [id number] Director: Kim Mayorga MD, Phone: [phone] Performed By: #### L 501.6710, L506.1001, L501.5000, L3410.9992, L3300.0100, L3410.9994, L3410.9996, L501.5200, L3300.8200, L7400.3000, L501.2300, L100.0500, L3300.9900, L503.0106, L500.4050 ####[facility] [address] [place], [place], [address] Basic metabolic 2000 panelon 01-11-2025 Anion gap [Moles/Vol] 16 mmol/L High 8 - 15 mmol/L [facility] Calcium [Mass/Vol] 9.6 mg/dL 8.5 - 10. 2 mg/dL [facility] Chloride [Moles/Vol] 104 mmol/L 98 - 107 mmol/L [facility] CO2 [Moles/Vol] 21 mmol/L Low 22 - 30 mmol/L [facility] Creatinine [Mass/Vol] 0.91 mg/dL 0.58 - 0.96 mg/dL [facility] GFR/1.73 sq M.predicted among non-blacks MDRD (S/P/Bld) [Vol rate/Area] 81 mL/min/{1.73_m2} - PINF [facility] Comment on above: Estimated Glomerular Filtration Rate (eGFR) is calculated using the 2020 CKD-EPI creatinine equation. This equation utilizes serum creatinine, sex, and age as parameters. The creatinine assay has traceable calibration to isotope dilution-mass spectrometry. Refer to KDIGO guidelines for clinical interpretation. In patients with unstable renal function, e.g. those with acute kidney injury, the eGFR may not accurately reflect actual GFR. Glucose [Mass/Vol] 99 mg/dL 74 - 99 mg/dL [facility] Comment on above: The [place] [employer] (ADA) provides guidance for cutoff values for fasting glucose and random glucose. The ADA defines fasting as no caloric intake for at least 8 hours. Fasting plasma glucose results between 100 to 125 mg/dL indicate increased risk for diabetes (prediabetes). Fasting plasma glucose results greater than or equal to 126 mg/dL meet the criteria for diagnosis of diabetes. In the absence of unequivocal hyperglycemia, results should be confirmed by repeat testing. In a patient with classic symptoms of hyperglycemia or hyperglycemic crisis, random plasma glucose results greater than or equal to 200 mg/dL meet the criteria for diagnosis of diabetes. Reference: Standards of Medical Care in Diabetes 2016, [place] [employer]. Diabetes Care. 2016.39(Suppl 1). Interpretation and review of laboratory results Abnormal [facility] Potassium [Moles/Vol] 3.4 mmol/L Low 3.7 - 5.1 mmol/L [facility] Sodium [Moles/Vol] 141 mmol/L 136 - 144 mmol/L [facility] Urea nitrogen [Mass/Vol] 17 mg/dL 7 - 21 mg/dL [facility] CBC W Auto Differential pane l (Bld)on 01-10-2025 Basophils (Bld) [#/Vol] 0.04 10*3/uL [facility] Basophils/100 WBC (Bld) 0.5 % [facility] Differential cell count method Nom (Bld) Auto [facility] Eosinophils (Bld) [#/Vol] 0.16 10*3/uL [facility] Eosinophils/100 WBC (Bld) 2 % [facility] Erythrocyte distribution width (RBC) [Ratio] 16 % High 11.5 - 15.0 % [facility] Hematocrit (Bld) [Volume fraction] 37.7 % 36.0 - 46.0 % [facility] Hemoglobin (Bld) [Mass/Vol] 12.2 g/dL 11.5 - 15.5 g/dL [facility] Immature granulocytes (Bld) [#/Vol] 0.03 10*3/uL [facility] Immature granulocytes/100 WBC (Bld) 0.4 % [facility] Interpretation and review of laboratory results Abnormal [facility] Lymphocytes (Bld) [#/Vol] 2.59 10*3/uL [facility] Lymphocytes/100 WBC (Bld) 32.4 % [facility] MCH (RBC) [Entitic mass] 27 pg 26.0 - 34.0 pg [facility] MCHC (RBC) [Mass/Vol] 32.4 g/dL 30.5 - 36.0 g/dL [facility] MCV (RBC) [Entitic vol] 83.4 fL 80.0 - 100.0 fL [facility] Monocytes (Bld) [#/Vol] 0.63 10*3/uL [facility] Monocytes/100 WBC (Bld) 7.9 % [facility] Neutrophils (Bld) [#/Vol] 4.55 10*3/uL [facility] Neutrophils/100 WBC (Bld) 56.8 % [facility] Nucleated RBC (Bld) [#/Vol] [facility] Nucleated RBC/100 WBC (Bld) [Ratio] 0 % /100 WBC [facility] Platelet mean volume (Bld) [Entitic vol] 10.1 fL 9.0 - 12.7 fL [facility] Platelets (Bld) [#/Vol] 332 10*3/uL [facility] RBC (Bld) [#/Vol] 4.52 10*6/uL 3.90 - 5.2 0 m/uL [facility] WBC (Bld) [#/Vol] 8 10*3/uL [facility] PT panel Coag (PPP)on 2024 INR Coag (PPP) [Relative time] 1.1 {INR} 0.9 - 1.3 [facility] Comment on above: Vitamin K Antagonist (VKA) Therapeutic Range: INR 2 to 3 (Target INR of 2.5) Note: For patients treated with VKA drugs, such as warfarin, the [place] [employer] 2012 Guideline recommends a therapeutic INR range of 2 to 3 (target INR of 2.5). This recommendation includes high-risk patients with antiphospholipid syndrome with previous arterial or venous thromboembolism, current-generation mechanical or bioprosthetic aortic heart valve replacement. Note: Patients with mechanical aortic valve replacement and additional risk factors for thromboembolic events (atrial fibrillation, previous thromboembolism, LV dysfunction, hypercoagulable conditions) or an older generation mechanical AVR (i.e., ball in-Cage) or any mechanical MVR should have a INR therapeutic range of 2.5 to 3.5 (target INR of 3). Rufina GH, et al. Chest 2012, 141:7S-47S Markel RA, et al. [facility] 2017, 70: 252-289 Interpretation and review of laboratory results Normal [facility] PT Coag (PPP) [Time] 11.4 s [facility] CBC-Complete Blood Cnt No Di ffon 01-08-2025 Erythrocyte distribution width (RBC) [Ratio] 16.0 % High 11.6-14.6 [facility] Comment on above: Performed By: #### L 501.6710, L506.1001, L501.5000, L3410.9992, L3300.0100, L3410.9994, L3410.9996, L501.5200, L3300.8200, L7400.3000, L501.2300, L100.0500, L3300.9900, L503.0106, L500.4050 ####[facility] [address] [facility]. [place], [place], [phone] Hematocrit (Bld) [Volume fraction] 35.9 % Low 37-47 [facility] Comment on above: Performed By: #### L 501.6710, L506.1001, L501.5000, L3410.9992, L3300.0100, L3410.9994, L3410.9996, L501.5200, L3300.8200, L7400.3000, L501.2300, L100.0500, L3300.9900, L503.0106, L500.4050 ####[facility] [address] [facility] [place], [address] Hemoglobin (Bld) [Mass/Vol] 11.9 g/dL Low 12.0-15.0 [facility] Comment on above: Performed By: #### L 501.6710, L506.1001, L501.5000, L3410.9992, L3300.0100, L3410.9994, L3410.9996, L501.5200, L3300.8200, L7400.3000, L501.2300, L100.0500, L3300.9900, L503.0106, L500.4050 ####[facility] [address] [place], [address] MCH (RBC) [Entitic mass] 27.1 pg Normal 27.0-32.0 [facility] Comment on above: Performed By: #### L 501.6710, L506.1001, L501.5000, L3410.9992, L3300.0100, L3410.9994, L3410.9996, L501.5200, L3300.8200, L7400.3000, L501.2300, L100.0500, L3300.9900, L503.0106, L500.4050 ####[facility] [address] [facility] [place], [address] MCHC (RBC) [Mass/Vol] 33.1 g/dL Normal 32-36 [facility] Comment on above: Performed By: #### L 501.6710, L506.1001, L501.5000, L3410.9992, L3300.0100, L3410.9994, L3410.9996, L501.5200, L3300.8200, L7400.3000, L501.2300, L100.0500, L3300.9900, L503.0106, L500.4050 ####[facility] [address] [facility] [place], [address] MCV (RBC) [Entitic vol] 81.8 fL Normal 81-99 [facility] Comment on above: Performed By: #### L 501.6710, L506.1001, L501.5000, L3410.9992, L3300.0100, L3410.9994, L3410.9996, L501.5200, L3300.8200, L7400.3000, L501.2300, L100.0500, L3300.9900, L503.0106, L500.4050 ####[facility] [address] [place], [address] Platelet mean volume (Bld) [Entitic vol] 9.7 fL Normal 6.2-12.0 [facility] Comment on above: Performed By: #### L 501.6710, L506.1001, L501.5000, L3410.9992, L3300.0100, L3410.9994, L3410.9996, L501.5200, L3300.8200, L7400.3000, L501.2300, L100.0500, L3300.9900, L503.0106, L500.4050 ####[facility] [address] [place], [address] Platelets (Bld) [#/Vol] 257 10*3/uL Normal 150-450 [facility] Comment on above: Performed By: #### L 501.6710, L506.1001, L501.5000, L3410.9992, L3300.0100, L3410.9994, L3410.9996, L501.5200, L3300.8200, L7400.3000, L501.2300, L100.0500, L3300.9900, L503.0106, L500.4050 ####[facility] [address] [place], [address] RBC (Bld) [#/Vol] 4.39 10*6/uL Normal 4.2-5.[address] [facility] Comment on above: Performed By: #### L 501.6710, L506.1001, L501.5000, L3410.9992, L3300.0100, L3410.9994, L3410.9996, L501.5200, L3300.8200, L7400.3000, L501.2300, L100.0500, L3300.9900, L503.0106, L500.4050 ####[facility] [address] [place], [place], [id number] RDW SD 47.8 fl High 35.1-43.9 [facility] Comment on above: Performed By: #### L 501.6710, L506.1001, L501.5000, L3410.9992, L3300.0100, L3410.9994, L3410.9996, L501.5200, L3300.8200, L7400.3000, L501.2300, L100.0500, L3300.9900, L503.0106, L500.4050 ####[facility] [address] [facility] [address] [place], [place], [phone] WBC (Bld) [#/Vol] 6.3 10*3/uL Normal 4.4-11.0 [facility] Comment on above: Performed By: #### L 501.6710, L506.1001, L501.5000, L3410.9992, L3300.0100, L3410.9994, L3410.9996, L501.5200, L3300.8200, L7400.3000, L501.2300, L100.0500, L3300.9900, L503.0106, L500.4050 ####[facility] [address] [facility] [address] [address] [place], [place], [id number] CRPon 01-08-2025 C-REACTIVE PROT 16.50 mg/L High 0.0-3.0 [facility] Comment on above: Performed By: #### L 501.6710, L506.1001, L501.5000, L3410.9992, L3300.0100, L3410.9994, L3410.9996, L501.5200, L3300.8200, L7400.3000, L501.2300, L100.0500, L3300.9900, L503.0106, L500.4050 ####[facility] [address] [place], [place], [phone] Comprehensive Metabolic Prof wyon 01-08-2025 Albumin [Mass/Vol] 3.5 g/dL Normal 3.5-5.0 [facility] Comment on above: Performed By: #### L 501.6710, L506.1001, L501.5000, L3410.9992, L3300.0100, L3410.9994, L3410.9996, L501.5200, L3300.8200, L7400.3000, L501.2300, L100.0500, L3300.9900, L503.0106, L500.4050 ####[facility] [address] [place], [place], [phone] Albumin/Globulin [Mass ratio] 0.9 {ratio} Normal 0.9-2.4 [facility] Comment on above: Performed By: #### L 501.6710, L506.1001, L501.5000, L3410.9992, L3300.0100, L3410.9994, L3410.9996, L501.5200, L3300.8200, L7400.3000, L501.2300, L100.0500, L3300.9900, L503.0106, L500.4050 ####[facility] [address] [place], [place], [phone] ALK PHOS 141 U/L High 35-104 [facility] Comment on above: Performed By: #### L 501.6710, L506.1001, L501.5000, L3410.9992, L3300.0100, L3410.9994, L3410.9996, L501.5200, L3300.8200, L7400.3000, L501.2300, L100.0500, L3300.9900, L503.0106, L500.4050 ####[facility] [address] [place], [place], [phone] ALT [Catalytic activity/Vol] 16 U/L Normal <=34 [facility] Comment on above: Performed By: #### L 501.6710, L506.1001, L501.5000, L3410.9992, L3300.0100, L3410.9994, L3410.9996, L501.5200, L3300.8200, L7400.3000, L501.2300, L100.0500, L3300.9900, L503.0106, L500.4050 ####[facility] [address] [place], [place], [phone] AST [Catalytic activity/Vol] 18 U/L Normal <=31 [facility] Comment on above: Performed By: #### L 501.6710, L506.1001, L501.5000, L3410.9992, L3300.0100, L3410.9994, L3410.9996, L501.5200, L3300.8200, L7400.3000, L501.2300, L100.0500, L3300.9900, L503.0106, L500.4050 ####[facility] [address] [place], [address] Bilirubin [Mass/Vol] 0.44 mg/dL Normal 0.00-1.30 [facility] Comment on above: Performed By: #### L 501.6710, L506.1001, L501.5000, L3410.9992, L3300.0100, L3410.9994, L3410.9996, L501.5200, L3300.8200, L7400.3000, L501.2300, L100.0500, L3300.9900, L503.0106, L500.4050 ####[facility] [address] [place], [address] BUN/CRE 17.3 RATIO Normal 10-20 [facility] Comment on above: Performed By: #### L 501.6710, L506.1001, L501.5000, L3410.9992, L3300.0100, L3410.9994, L3410.9996, L501.5200, L3300.8200, L7400.3000, L501.2300, L100.0500, L3300.9900, L503.0106, L500.4050 ####[facility] [address] [place], [address] Calcium [Mass/Vol] 9.0 mg/dL Normal 7.6-11.0 [facility] Comment on above: Performed By: #### L 501.6710, L506.1001, L501.5000, L3410.9992, L3300.0100, L3410.9994, L3410.9996, L501.5200, L3300.8200, L7400.3000, L501.2300, L100.0500, L3300.9900, L503.0106, L500.4050 ####[facility] [address] [place], [address] Chloride [Moles/Vol] 101 mmol/L Normal 98-108 [facility] Comment on above: Performed By: #### L 501.6710, L506.1001, L501.5000, L3410.9992, L3300.0100, L3410.9994, L3410.9996, L501.5200, L3300.8200, L7400.3000, L501.2300, L100.0500, L3300.9900, L503.0106, L500.4050 ####[facility] [address] [place], [address] CO2 [Moles/Vol] 19.2 mmol/L Low 21.0-32.0 [facility] Comment on above: Performed By: #### L 501.6710, L506.1001, L501.5000, L3410.9992, L3300.0100, L3410.9994, L3410.9996, L501.5200, L3300.8200, L7400.3000, L501.2300, L100.0500, L3300.9900, L503.0106, L500.4050 ####[facility] [address] [place], [place], [phone] Creatinine [Mass/Vol] 0.99 mg/dL Normal 0.70-1.20 [facility] Comment on above: Performed By: #### L 501.6710, L506.1001, L501.5000, L3410.9992, L3300.0100, L3410.9994, L3410.9996, L501.5200, L3300.8200, L7400.3000, L501.2300, L100.0500, L3300.9900, L503.0106, L500.4050 ####[facility] [address] [place], [address] GAP 17 High 5-15 [facility] Comment on above: Performed By: #### L 501.6710, L506.1001, L501.5000, L3410.9992, L3300.0100, L3410.9994, L3410.9996, L501.5200, L3300.8200, L7400.3000, L501.2300, L100.0500, L3300.9900, L503.0106, L500.4050 ####[facility] [address] [place], [address] GFR/1.73 sq M.predicted among non-blacks MDRD (S/P/Bld) [Vol rate/Area] 73 mL/min/{1.73_m2} Normal >60 [facility] Comment on above: Result Comment: mL/m in/1.73m2 CKD-EPI Creatinine Equation (2020) Performed By: #### L 501.6710, L506.1001, L501.5000, L3410.9992, L3300.0100, L3410.9994, L3410.9996, L501.5200, L3300.8200, L7400.3000, L501.2300, L100.0500, L3300.9900, L503.0106, L500.4050 ####[facility] [address] [place], [address] Globulin (S) [Mass/Vol] 4.0 g/dL Normal 2.2-4.2 [facility] Comment on above: Performed By: #### L 501.6710, L506.1001, L501.5000, L3410.9992, L3300.0100, L3410.9994, L3410.9996, L501.5200, L3300.8200, L7400.3000, L501.2300, L100.0500, L3300.9900, L503.0106, L500.4050 ####[facility] [address] [place], [place], [phone] Glucose [Mass/Vol] 148 mg/dL High 70-99 [facility] Comment on above: Performed By: #### L 501.6710, L506.1001, L501.5000, L3410.9992, L3300.0100, L3410.9994, L3410.9996, L501.5200, L3300.8200, L7400.3000, L501.2300, L100.0500, L3300.9900, L503.0106, L500.4050 ####[facility] [address] [place], [place], [phone] Potassium [Moles/Vol] 2.6 mmol/L Invalid Interpretation Code 3.3-5.1 [facility] Comment on above: Result Comment: Crit ical Result(s) Called at: 1539 by:??CLAUDIA ALEXANDRE Results read back by same. Performed By: #### L 501.6710, L506.1001, L501.5000, L3410.9992, L3300.0100, L3410.9994, L3410.9996, L501.5200, L3300.8200, L7400.3000, L501.2300, L100.0500, L3300.9900, L503.0106, L500.4050 ####[facility] [address] [place], [place], [phone] Sodium [Moles/Vol] 137 mmol/L Normal 133-145 [facility] Comment on above: Performed By: #### L 501.6710, L506.1001, L501.5000, L3410.9992, L3300.0100, L3410.9994, L3410.9996, L501.5200, L3300.8200, L7400.3000, L501.2300, L100.0500, L3300.9900, L503.0106, L500.4050 ####[facility] [address] [place], [place], [phone] T PROT 7.4 g/dL Normal 5.9-8.4 [facility] Comment on above: Performed By: #### L 501.6710, L506.1001, L501.5000, L3410.9992, L3300.0100, L3410.9994, L3410.9996, L501.5200, L3300.8200, L7400.3000, L501.2300, L100.0500, L3300.9900, L503.0106, L500.4050 ####[facility] [address] [place], [place], [id number] Urea nitrogen [Mass/Vol] 17 mg/dL Normal 4-19 [facility] Comment on above: Performed By: #### L 501.6710, L506.1001, L501.5000, L3410.9992, L3300.0100, L3410.9994, L3410.9996, L501.5200, L3300.8200, L7400.3000, L501.2300, L100.0500, L3300.9900, L503.0106, L500.4050 ####[facility] [address] [place], [place], [address] Magnesiumon 01-08-2025 Magnesium [Mass/Vol] 2.1 mg/dL Normal 1.5-2.2 [facility] Comment on above: Performed By: #### L 501.6710, L506.1001, L501.5000, L3410.9992, L3300.0100, L3410.9994, L3410.9996, L501.5200, L3300.8200, L7400.3000, L501.2300, L100.0500, L3300.9900, L503.0106, L500.4050 ####[facility] [address] [place], [address] Phosphoruson 01-08-2025 Phosphate [Mass/Vol] 2.9 mg/dL Normal 2.7-4.5 [facility] Comment on above: Performed By: #### L 501.6710, L506.1001, L501.5000, L3410.9992, L3300.0100, L3410.9994, L3410.9996, L501.5200, L3300.8200, L7400.3000, L501.2300, L100.0500, L3300.9900, L503.0106, L500.4050 ####[facility] [address] [place], [place], [address] Triglycerideson 01-08-2025 Triglyceride [Mass/Vol] 90 mg/dL Normal [facility] Comment on above: Result Comment: The drugs N-Acetylcysteine and Metamizole may falselydepress this assay.Normal range: <150 mg/dLBorderline High: 150-199 mg/dLHigh: 200-499 mg/dLVery High: >500 mg/dL Performed By: #### L 501.6710, L506.1001, L501.5000, L3410.9992, L3300.0100, L3410.9994, L3410.9996, L501.5200, L3300.8200, L7400.3000, L501.2300, L100.0500, L3300.9900, L503.0106, L500.4050 ####[facility] [address] [place], [place], [address] Vitamin B12on 01-08-2025 Cobalamin (Vitamin B12) [Mass/Vol] 381 pg/mL Normal 180-914 [facility] Comment on above: Performed By: #### L 501.6710, L506.1001, L501.5000, L3410.9992, L3300.0100, L3410.9994, L3410.9996, L501.5200, L3300.8200, L7400.3000, L501.2300, L100.0500, L3300.9900, L503.0106, L500.4050 ####[facility] [address] [facility] [place], [place], [address] Vitamin D,25 Hydroxyon 01-08 Vitamin D 25-OH 8.9 ng/mL Low 30-100 [facility] Comment on above: Result Comment: Yamileth min D StatusDeficiency: <20 ng/mL (50nmol/L)Insufficiency: 20-30 ng/mL (50-75 nmol/L)Sufficiency: 30-100 ng/mL (75-250 nmol/L)Toxicity: >100 ng/mL (>250 nmol/L) Performed By: #### L 501.6710, L506.1001, L501.5000, L3410.9992, L3300.0100, L3410.9994, L3410.9996, L501.5200, L3300.8200, L7400.3000, L501.2300, L100.0500, L3300.9900, L503.0106, L500.4050 ####[facility] [address] [place], [address] CNPNon 01-04-2025 CNPN Normal [facility] CNPNon 01-03-2025 CNPN Normal [facility] CNPNon 01-02-2025 CNPN Normal [facility] CNPNon 01-01-2025 CNPN Normal [facility] CNOVon 12-31-2024 CNOV Normal [facility] CNPNon 12-25-2024 CNPN Normal [facility] CNPTOUTREACHon 12-25-2024 CNPTOUTREACH Normal [facility] CBC W/Diff, Automatedon 11-27 Absolute Lymph 2.63 X10 3/uL Normal 0.83-4.51 [facility] Comment on above: Performed By: #### L 501.2300, L501.5200, L500.4050, L100.0100 ####[facility] [address] [place], [address] Absolute Neut 7.8 X10 3/uL High 2.0-7.7 [facility] Comment on above: Performed By: #### L 501.2300, L501.5200, L500.4050, L100.0100 ####[facility] [address] [place], [address] Basophils/100 WBC (Bld) 0.4 % Normal 0-1 [facility] Comment on above: Performed By: #### L 501.2300, L501.5200, L500.4050, L100.0100 ####[facility] [address] [place], [address] Eosinophils/100 WBC (Bld) 2.6 % Normal 0-5 [facility] Comment on above: Performed By: #### L 501.2300, L501.5200, L500.4050, L100.0100 ####[facility] [address] [place], [address] Erythrocyte distribution width (RBC) [Ratio] 19.0 % High 11.6-14.6 [facility] Comment on above: Performed By: #### L 501.2300, L501.5200, L500.4050, L100.0100 ####[facility] [address] [place], [address] Hematocrit (Bld) [Volume fraction] 32.9 % Low 37-47 [facility] Comment on above: Performed By: #### L 501.2300, L501.5200, L500.4050, L100.0100 ####[facility] [address] [place], [address] Hemoglobin (Bld) [Mass/Vol] 10.4 g/dL Low 12.0-15.0 [facility] Comment on above: Performed By: #### L 501.2300, L501.5200, L500.4050, L100.0100 ####[facility] [address] [place], [address] IG% 0.600 Normal 0.0-0.9 [facility] Comment on above: Result Comment: IG% - Immature Granulocytes (promyelocytes, myelocytes andmetamyelocytes) > 1% indicates that a LEFT SHIFT is Present. Performed By: #### L 501.2300, L501.5200, L500.4050, L100.0100 ####[facility] [address] [place], [address] Lymphocytes/100 WBC (Bld) 22.8 % Normal 19-41 [facility] Comment on above: Performed By: #### L 501.2300, L501.5200, L500.4050, L100.0100 ####[facility] [address] [place], [address] MCH (RBC) [Entitic mass] 27.2 pg Normal 27.0-32.0 [facility] Comment on above: Performed By: #### L 501.2300, L501.5200, L500.4050, L100.0100 ####[facility] [address] [place], [address] MCHC (RBC) [Mass/Vol] 31.6 g/dL Low 32-36 [facility] Comment on above: Performed By: #### L 501.2300, L501.5200, L500.4050, L100.0100 ####[facility] [address] [place], [address] MCV (RBC) [Entitic vol] 85.9 fL Normal 81-99 [facility] Comment on above: Performed By: #### L 501.2300, L501.5200, L500.4050, L100.0100 ####[facility] [address] [place], [address] Monocytes/100 WBC (Bld) 5.7 % Normal 0-10 [facility] Comment on above: Performed By: #### L 501.2300, L501.5200, L500.4050, L100.0100 ####[facility] [address] [place], [address] Neutrophils/100 WBC (Bld) 67.9 % Normal 47-70 [facility] Comment on above: Performed By: #### L 501.2300, L501.5200, L500.4050, L100.0100 ####[facility] [address] [place], [address] Nucleated RBC (Bld) [#/Vol] 0 10*3/uL Normal 0-5 [facility] Comment on above: Performed By: #### L 501.2300, L501.5200, L500.4050, L100.0100 ####[facility] [address] [place], [address] Platelet mean volume (Bld) [Entitic vol] 9.2 fL Normal 6.2-12.0 [facility] Comment on above: Performed By: #### L 501.2300, L501.5200, L500.4050, L100.0100 ####[facility] [address] [place], [address] Platelets (Bld) [#/Vol] 500 10*3/uL High 150-450 [facility] Comment on above: Performed By: #### L 501.2300, L501.5200, L500.4050, L100.0100 ####[facility] [address] [place], [address] RBC (Bld) [#/Vol] 3.83 10*6/uL Low 4.2-5.[address] [facility] Comment on above: Performed By: #### L 501.2300, L501.5200, L500.4050, L100.0100 ####[facility] [address] [place], [address] RDW SD 59.3 fl High 35.1-43.9 [facility] Comment on above: Performed By: #### L 501.2300, L501.5200, L500.4050, L100.0100 ####[facility] [address] [place], [address] WBC (Bld) [#/Vol] 11.5 10*3/uL High 4.4-11.[address] [facility] Comment on above: Performed By: #### L 501.2300, L501.5200, L500.4050, L100.0100 ####[facility] [address] [place], [address] [facility] Albumin [Mass/Vol] 3.6 g/dL Normal 3.5-5.0 [facility] Comment on above: Performed By: #### L 501.2300, L501.5200, L500.4050, L100.0100 ####[facility] [address] [place], [address] Albumin/Globulin [Mass ratio] 0.9 {ratio} Normal 0.9-2.4 [facility] Comment on above: Performed By: #### L 501.2300, L501.5200, L500.4050, L100.0100 ####[facility] [address] [place], [address] ALK PHOS 192 U/L High 35-104 [facility] Comment on above: Performed By: #### L 501.2300, L501.5200, L500.4050, L100.0100 ####[facility] [address] [place], [address] ALT [Catalytic activity/Vol] 77 U/L High <=34 [facility] Comment on above: Performed By: #### L 501.2300, L501.5200, L500.4050, L100.0100 ####[facility] [address] [place], [address] AST [Catalytic activity/Vol] 42 U/L High <=31 [facility] Comment on above: Performed By: #### L 501.2300, L501.5200, L500.4050, L100.0100 ####[facility] [address] [place], [address] Bilirubin [Mass/Vol] 0.28 mg/dL Normal 0.00-1.30 [facility] Comment on above: Performed By: #### L 501.2300, L501.5200, L500.4050, L100.0100 ####[facility] [address] [place], [address] BUN/CRE 25.0 RATIO High 10-20 [facility] Comment on above: Performed By: #### L 501.2300, L501.5200, L500.4050, L100.0100 ####[facility] [address] [place], [address] Calcium [Mass/Vol] 9.1 mg/dL Normal 7.6-11.0 [facility] Comment on above: Performed By: #### L 501.2300, L501.5200, L500.4050, L100.0100 ####[facility] [address] [place], [address] Chloride [Moles/Vol] 105 mmol/L Normal 98-108 [facility] Comment on above: Performed By: #### L 501.2300, L501.5200, L500.4050, L100.0100 ####[facility] [address] [place], [address] CO2 [Moles/Vol] 20.1 mmol/L Low 21.0-32.0 [facility] Comment on above: Performed By: #### L 501.2300, L501.5200, L500.4050, L100.0100 ####[facility] [address] [place], [address] Creatinine [Mass/Vol] 0.94 mg/dL Normal 0.70-1.20 [facility] Comment on above: Performed By: #### L 501.2300, L501.5200, L500.4050, L100.0100 ####[facility] [address] [place], [address] GAP 14 Normal 5-15 [facility] Comment on above: Performed By: #### L 501.2300, L501.5200, L500.4050, L100.0100 ####[facility] [address] [place], [address] GFR/1.73 sq M.predicted among non-blacks MDRD (S/P/Bld) [Vol rate/Area] 79 mL/min/{1.73_m2} Normal >60 [facility] Comment on above: Result Comment: mL/m in/1.73m2 CKD-EPI Creatinine Equation (2020) Performed By: #### L 501.2300, L501.5200, L500.4050, L100.0100 ####[facility] [address] [place], [address] Globulin (S) [Mass/Vol] 3.8 g/dL Normal 2.2-4.2 [facility] Comment on above: Performed By: #### L 501.2300, L501.5200, L500.4050, L100.0100 ####[facility] [address] [place], [address] Glucose [Mass/Vol] 104 mg/dL High 70-99 [facility] Comment on above: Performed By: #### L 501.2300, L501.5200, L500.4050, L100.0100 ####[facility] [address] [place], [address] Potassium [Moles/Vol] 3.7 mmol/L Normal 3.3-5.1 [facility] Comment on above: Performed By: #### L 501.2300, L501.5200, L500.4050, L100.0100 ####[facility] [address] [place], [address] Sodium [Moles/Vol] 139 mmol/L Normal 133-145 [facility] Comment on above: Performed By: #### L 501.2300, L501.5200, L500.4050, L100.0100 ####[facility] [address] [place], [address] T PROT 7.3 g/dL Normal 5.9-8.4 [facility] Comment on above: Performed By: #### L 501.2300, L501.5200, L500.4050, L100.0100 ####[facility] [address] [place], [address] Urea nitrogen [Mass/Vol] 23 mg/dL High 4-19 [facility] Comment on above: Performed By: #### L 501.2300, L501.5200, L500.4050, L100.0100 ####[facility] [address] [place], [address] Magnesiumon 12-24-2024 Magnesium [Mass/Vol] 2.1 mg/dL Normal 1.5-2.2 [facility] Comment on above: Performed By: #### L 501.2300, L501.5200, L500.4050, L100.0100 ####[facility] [address] [place], [address] Phosphoruson 12-24-2024 Phosphate [Mass/Vol] 3.7 mg/dL Normal 2.7-4.5 [facility] Comment on above: Performed By: #### L 501.2300, L501.5200, L500.4050, L100.0100 ####[facility] [address] [place], [address] CASE MANAGEMon 12-21-2024 CASE MANAGEM Normal [facility] CBC W Auto Differential pane l (Bld)on 12-21-2024 Basophils (Bld) [#/Vol] 0.03 10*3/uL Normal <0.11 [facility] Comment on above: Order Comment: Speci men Type: BLOOD SPECIMENOrdering Facility: [facility] Address: [address] [place] [address] Performed By: #### 5 7021-8 ####[facility] LABCLIA [id number] [address] [address] [place] Basophils/100 WBC (Bld) 0.4 % Normal [facility] Comment on above: Order Comment: Speci men Type: BLOOD SPECIMENOrdering Facility: [facility] Address: [address] [place] [address] Performed By: #### 5 7021-8 ####[facility] LABCLIA [id number] [place] [address] [place] Differential cell count method Nom (Bld) Auto Normal [facility] Comment on above: Order Comment: Speci men Type: BLOOD SPECIMENOrdering Facility: [facility] Address: [address] [place] [address] Performed By: #### 5 7021-8 ####[facility] LABCLIA [id number] [place] [address] [place] Eosinophils (Bld) [#/Vol] 0.30 10*3/uL Normal <0.46 [facility] Comment on above: Order Comment: Speci men Type: BLOOD SPECIMENOrdering Facility: [facility] Address: [address] [place] [address] Performed By: #### 5 7021-8 ####[facility] LABCLIA [id number] [place] [address] [place] Eosinophils/100 WBC (Bld) 4.0 % Normal [facility] Comment on above: Order Comment: Speci men Type: BLOOD SPECIMENOrdering Facility: [facility] Address: [address] [place] [address] Performed By: #### 5 7021-8 ####[facility] LABCLIA [id number] [place] [address] [place] Erythrocyte distribution width (RBC) [Ratio] 19.8 % High 11.5-15.0 [facility] Comment on above: Order Comment: Speci men Type: BLOOD SPECIMENOrdering Facility: [facility] Address: [address] [place] [address] Performed By: #### 5 7021-8 ####[facility] LABCLIA [id number] [place] [address] [place] Hematocrit (Bld) [Volume fraction] 30.5 % Low 36.0-46.0 [facility] Comment on above: Order Comment: Speci men Type: BLOOD SPECIMENOrdering Facility: [facility] Address: [address] [place] [address] Performed By: #### 5 7021-8 ####[facility] LABIA [id number] [place] [address] [place] Hemoglobin (Bld) [Mass/Vol] 9.7 g/dL Low 11.5-15.5 [facility] Comment on above: Order Comment: Speci men Type: BLOOD SPECIMENOrdering Facility: [facility] Address: [address] [place] [address] Performed By: #### 5 7021-8 ####[facility] LABIA [id number] [place] [address] [place] Immature granulocytes (Bld) [#/Vol] 0.05 10*3/uL Normal <0.10 [facility] Comment on above: Order Comment: Speci men Type: BLOOD SPECIMENOrdering Facility: [facility] Address: [address] [place] [address] Performed By: #### 5 7021-8 ####[facility] LABIA [id number] [place] [address] [place] Immature granulocytes/100 WBC (Bld) 0.7 % Normal [facility] Comment on above: Order Comment: Speci men Type: BLOOD SPECIMENOrdering Facility: [facility] Address: [address] [place] [address] Performed By: #### 5 7021-8 ####[facility] LABIA [id number] [place] [address] [place] Lymphocytes (Bld) [#/Vol] 1.12 10*3/uL Normal 1.00-4.00 [facility] Comment on above: Order Comment: Speci men Type: BLOOD SPECIMENOrdering Facility: [facility] Address: [address] [place] [address] Performed By: #### 5 7021-8 ####[facility] LABIA [id number] [place] [address] [place] Lymphocytes/100 WBC (Bld) 14.9 % Normal [facility] Comment on above: Order Comment: Speci men Type: BLOOD SPECIMENOrdering Facility: [facility] Address: [address] [place] [address] Performed By: #### 5 7021-8 ####[facility] LABIA [id number] [place] [address] [place] MCH (RBC) [Entitic mass] 27.4 pg Normal 26.0-34.0 [facility] Comment on above: Order Comment: Speci men Type: BLOOD SPECIMENOrdering Facility: [facility] Address: [address] [place] [address] Performed By: #### 5 7021-8 ####[facility] LABIA [id number] [address] [place] MCHC (RBC) [Mass/Vol] 31.8 g/dL Normal 30.5-36.0 [facility] Comment on above: Order Comment: Speci men Type: BLOOD SPECIMENOrdering Facility: [facility] Address: [address] [place] [address] Performed By: #### 5 7021-8 ####[facility] LABIA [id number] [place] [address] [place] MCV (RBC) [Entitic vol] 86.2 fL Normal 80.0-100.0 [facility] Comment on above: Order Comment: Speci men Type: BLOOD SPECIMENOrdering Facility: [facility] Address: [address] [place] [address] Performed By: #### 5 7021-8 ####[facility] LABCLIA [id number] [address], [place] [address] [place] Monocytes (Bld) [#/Vol] 0.58 10*3/uL Normal <0.87 [facility] Comment on above: Order Comment: Speci men Type: BLOOD SPECIMENOrdering Facility: [facility] Address: [address] [place] [address] Performed By: #### 5 7021-8 ####[facility] LABCLIA [id number] [address], [place] [address] [place] Monocytes/100 WBC (Bld) 7.7 % Normal [facility] Comment on above: Order Comment: Speci men Type: BLOOD SPECIMENOrdering Facility: [facility] Address: [address] [place] [address] Performed By: #### 5 7021-8 ####[facility] LABCLIA [id number] [address], [facility]95 [place] Neutrophils (Bld) [#/Vol] 5.45 10*3/uL Normal 1.45-7.50 [facility] Comment on above: Order Comment: Speci men Type: BLOOD SPECIMENOrdering Facility: [facility] Address: [address] [place] [address] Performed By: #### 5 7021-8 ####[facility] LABCLIA [id number] [address], [facility]95 [place] Neutrophils/100 WBC (Bld) 72.3 % Normal [facility] Comment on above: Order Comment: Speci men Type: BLOOD SPECIMENOrdering Facility: [facility] Address: [address] [place] [address] Performed By: #### 5 7021-8 ####[facility] LABCLIA [id number] [address] [place] [address] [place] Nucleated RBC (Bld) [#/Vol] 10*3/uL Normal <0.01 [facility] Comment on above: Order Comment: Speci men Type: BLOOD SPECIMENOrdering Facility: [facility] Address: [address] [place] [address] Performed By: #### 5 7021-8 ####[facility] LABCLIA [id number] [place] [address] [place] Nucleated RBC/100 WBC (Bld) [Ratio] 0.0 /100 WBC Normal [facility] Comment on above: Order Comment: Speci men Type: BLOOD SPECIMENOrdering Facility: [facility] Address: [address] [place] [address] Performed By: #### 5 7021-8 ####[facility] LABCLIA [id number] [place] [address] [place] Platelet mean volume (Bld) [Entitic vol] 9.7 fL Normal 9.0-12.7 [facility] Comment on above: Order Comment: Speci men Type: BLOOD SPECIMENOrdering Facility: [facility] Address: [address] [place] [address] Performed By: #### 5 7021-8 ####[facility] LABIA [id number] [place] [address] [place] Platelets (Bld) [#/Vol] 428 10*3/uL High 150-400 [facility] Comment on above: Order Comment: Speci men Type: BLOOD SPECIMENOrdering Facility: [facility] Address: [address] [place] [address] Performed By: #### 5 7021-8 ####[facility] LABCLIA [id number] [place] [address] [place] RBC (Bld) [#/Vol] 3.54 10*6/uL Low 3.90-5.20 [facility] Comment on above: Order Comment: Speci men Type: BLOOD SPECIMENOrdering Facility: [facility] Address: [address] [place] [address] Performed By: #### 5 7021-8 ####[facility] LABCLIA [id number] [place] [address] [place] WBC (Bld) [#/Vol] 7.53 10*3/uL Normal 3.70-11.00 [facility] Comment on above: Order Comment: Speci men Type: BLOOD SPECIMENOrdering Facility: [facility] Address: [address] [place] [address] Performed By: #### 5 7021-8 ####[facility] LABCLIA [id number] [place] [address] [place] CNCNPATEDon 12-21-2024 CNCNPATED Normal [facility] CNDSon 12-21-2024 CNDS Normal [facility] CNPNon 12-21-2024 CNPN Normal [facility] CONSULT PROGon 12-21-2024 CONSULT PROG Normal [facility] CONSULT PROG Normal [facility] CRP SerPl-mCncon 12-21-2024 CRP [Mass/Vol] 2.9 mg/dL High <0.9 [facility] Comment on above: Order Comment: Speci men Type: BLOOD SPECIMENOrdering Facility: [facility] Address: [address] [place] [address] Performed By: #### 1 988-5 ####[facility] LABCLIA [id number] [place] [address] [place] Comprehensive metabolic 2000 panelon 12-21-2024 Albumin [Mass/Vol] 2.9 g/dL Low 3.9-4.9 [facility] Comment on above: Order Comment: Speci men Type: BLOOD SPECIMENOrdering Facility: [facility] Address: [address] [place] [address] Performed By: #### 2 4323-8, 88435-7, 2777-1 ####[facility] LABCLIA [id number] [address] [address] [place] ALP [Catalytic activity/Vol] 123 U/L Normal 34-123 [facility] Comment on above: Order Comment: Speci men Type: BLOOD SPECIMENOrdering Facility: [facility] Address: [address] [place] [address] Performed By: #### 2 4323-8, 77066-5, 2776-06 ####[facility] LABCLIA [id number] [place] [address] [place] ALT [Catalytic activity/Vol] 34 U/L Normal 7-38 [facility] Comment on above: Order Comment: Speci men Type: BLOOD SPECIMENOrdering Facility: [facility] Address: [address] [place] [address] Performed By: #### 2 4323-8, , 2776-06 ####[facility] LABCLIA [id number] [place] [address] [place] Anion gap [Moles/Vol] 9 mmol/L Normal 8-15 [facility] Comment on above: Order Comment: Speci men Type: BLOOD SPECIMENOrdering Facility: [facility] Address: [address] [place] [address] Performed By: #### 2 4323-8, , 2776-06 ####[facility] LABCLIA [id number] [place] [address] [place] AST [Catalytic activity/Vol] 26 U/L Normal 13-35 [facility] Comment on above: Order Comment: Speci men Type: BLOOD SPECIMENOrdering Facility: [facility] Address: [address] [place], [place] [address] Performed By: #### 2 4323-8, , 2776- ####[facility] LABCLIA [id number] [address] [address] [place] Bilirubin [Mass/Vol] 0.2 mg/dL Normal 0.2-1.3 [facility] Comment on above: Order Comment: Speci men Type: BLOOD SPECIMENOrdering Facility: [facility] Address: [address] [place], [place] [address] Performed By: #### 2 4323-8, , 2776-06 ####[facility] LABCLIA [id number] [facility] [address] [place] [address] [place] Calcium [Mass/Vol] 9.1 mg/dL Normal 8.5-10.2 [facility] Comment on above: Order Comment: Speci men Type: BLOOD SPECIMENOrdering Facility: [facility] Address: [address] [place] [address] Performed By: #### 2 4323-8, , 2776-06 ####[facility] LABCLIA [id number] [facility] [place] [id number] [place] Chloride [Moles/Vol] 105 mmol/L Normal 98-107 [facility] Comment on above: Order Comment: Speci men Type: BLOOD SPECIMENOrdering Facility: [facility] Address: [address] [place] [address] Performed By: #### 2 4323-8, , 2776-06 ####[facility] LABCLIA [id number] [facility] [address] [place] [address] [place] CO2 [Moles/Vol] 23 mmol/L Normal 22-30 [facility] Comment on above: Order Comment: Speci men Type: BLOOD SPECIMENOrdering Facility: [facility] Address: [address] [place] [address] Performed By: #### 2 4323-8, , 2776-06 ####[facility] LABCLIA [id number] [facility] [address] [place] [address] [place] Creatinine [Mass/Vol] 0.70 mg/dL Normal 0.58-0.96 [facility] Comment on above: Order Comment: Dora finch Type: BLOOD SPECIMENOrdering Facility: [facility] Address: [address] [place] [address] Performed By: #### 2 4323-8, 35219-7, 2776- ####[facility] LABIA [id number] [place] [id number] [place] Creatinine and Glomerular filtration rate.predicted panel (S/P/Bld) 112 mL/min/1.73m??? Normal >=60 [facility] Comment on above: Order Comment: Dora finch Type: BLOOD SPECIMENOrdering Facility: [facility] Address: [address] [place] [address] Result Comment: Zeny mated Glomerular Filtration Rate (eGFR) is calculated using the 2020 CKD-EPI creatinine equation. This equation utilizes serum creatinine, sex, and age as parameters. The creatinine assay has traceable calibration to isotope dilution-mass spectrometry. Refer to KDIGO guidelines for clinical interpretation. In patients with unstable renal function, e.g. those with acute kidney injury, the eGFR may not accurately reflect actual GFR. Performed By: #### 2 4323-8, 60598-3, 2776-06 ####[facility] LABIA [id number] [place] [id number] [place] Glucose [Mass/Vol] 125 mg/dL High 74-99 [facility] Comment on above: Order Comment: Dora finch Type: BLOOD SPECIMENOrdering Facility: [facility] Address: [address] [place] [address] Result Comment: The [place] [employer] (ADA) provides guidance for cutoff values for fasting glucose and random glucose. The ADA defines fasting as no caloric intake for at least 8 hours. Fasting plasma glucose results between 100 to 125 mg/dL indicate increased risk for diabetes (prediabetes).Fasting plasma glucose results greater than or equal to 126 mg/dL meet the criteria for diagnosis of diabetes. In the absence of unequivocal hyperglycemia, results should be confirmed by repeat testing. In a patient with classic symptoms of hyperglycemia or hyperglycemic crisis, random plasma glucose results greater than or equal to 200 mg/dL meet the criteria for diagnosis of diabetes.Reference: Standards of Medical Care in Diabetes 2016, [place] [employer]. Diabetes Care. 2016.39(Suppl 1). Performed By: #### 2 4323-8, , 2776-06 ####[facility] LABCLIA [id number] [address] [address] [place] Potassium [Moles/Vol] 4.1 mmol/L Normal 3.7-5.1 [facility] Comment on above: Order Comment: Speci men Type: BLOOD SPECIMENOrdering Facility: [facility] Address: [address] [place], [place] [address] Performed By: #### 2 4323-8, , 2776-06 ####[facility] LABCLIA [id number] [address] [address] [place] Protein [Mass/Vol] 6.2 g/dL Low 6.3-8.0 [facility] Comment on above: Order Comment: Speci men Type: BLOOD SPECIMENOrdering Facility: [facility] Address: [address] [place], [place] [address] Performed By: #### 2 432-8, , 2776-06 ####[facility] LABIA [id number] [address] [address] [place] Sodium [Moles/Vol] 137 mmol/L Normal 136-144 [facility] Comment on above: Order Comment: Speci men Type: BLOOD SPECIMENOrdering Facility: [facility] Address: [address] [place] [address] Performed By: #### 2 4323-8, , 2776-06 ####[facility] LABCLIA [id number] [address] [address] [place] Urea nitrogen [Mass/Vol] 15 mg/dL Normal 7-21 [facility] Comment on above: Order Comment: Speci men Type: BLOOD SPECIMENOrdering Facility: [facility] Address: [address] [place] [address] Performed By: #### 2 4323-8, 56886-5, 2776-06 ####[facility] LABCLIA [id number] [place] [id number] [place] Magnesium SerPl-mCncon 12-21 Magnesium [Mass/Vol] 2.1 mg/dL Normal 1.7-2.3 [facility] Comment on above: Order Comment: Speci men Type: BLOOD SPECIMENOrdering Facility: [facility] Address: [address] [place] [address] Performed By: #### 2 4323-8, 15444-9, 2776-06 ####[facility] LABCLIA [id number] [place] [id number] [place] PT EDon 12-21-2024 PT ED Normal [facility] PT ED Normal [facility] Phosphate SerPl-mCncon 12-21 Phosphate [Mass/Vol] 4.4 mg/dL Normal 2.7-4.8 [facility] Comment on above: Order Comment: Speci men Type: BLOOD SPECIMENOrdering Facility: [facility] Address: [address] [place] [address] Performed By: #### 2 4323-8, , 2776-06 ####[facility] LABCLIA [id number] [place] [id number] [place] CASE MANAGEMon 12-20-2024 CASE MANAGEM Normal [facility] CASE MANAGEM Normal [facility] CBC W Auto Differential pane l (Bld)on 12-20-2024 Basophils (Bld) [#/Vol] 0.04 10*3/uL Normal <0.11 [facility] Comment on above: Order Comment: Speci men Type: BLOOD SPECIMENOrdering Facility: [facility] Address: [address] [place] [address] Performed By: #### 5 7021-8 ####[facility] LABCLIA [id number] [place] [address] [place] Basophils/100 WBC (Bld) 0.5 % Normal [facility] Comment on above: Order Comment: Speci men Type: BLOOD SPECIMENOrdering Facility: [facility] Address: [address] [place] [address] Performed By: #### 5 7021-8 ####[facility] LABCLIA [id number] [place] [address] [place] Differential cell count method Nom (Bld) Auto Normal [facility] Comment on above: Order Comment: Speci men Type: BLOOD SPECIMENOrdering Facility: [facility] Address: [address] [place] [address] Performed By: #### 5 7021-8 ####[facility] LABIA [id number] [place] [address] [place] Eosinophils (Bld) [#/Vol] 0.25 10*3/uL Normal <0.46 [facility] Comment on above: Order Comment: Speci men Type: BLOOD SPECIMENOrdering Facility: [facility] Address: [address] [place] [address] Performed By: #### 5 7021-8 ####[facility] LABCLIA [id number] [place] [address] [place] Eosinophils/100 WBC (Bld) 3.4 % Normal [facility] Comment on above: Order Comment: Speci men Type: BLOOD SPECIMENOrdering Facility: [facility] Address: [address] [place] [address] Performed By: #### 5 7021-8 ####[facility] LABIA [id number] [place] [address] [place] Erythrocyte distribution width (RBC) [Ratio] 20.0 % High 11.5-15.0 [facility] Comment on above: Order Comment: Speci men Type: BLOOD SPECIMENOrdering Facility: [facility] Address: [address] [place] [address] Performed By: #### 5 7021-8 ####[facility] LABCLIA [id number] [place] [address] [place] Hematocrit (Bld) [Volume fraction] 26.9 % Low 36.0-46.0 [facility] Comment on above: Order Comment: Speci men Type: BLOOD SPECIMENOrdering Facility: [facility] Address: [address] [place] [address] Performed By: #### 5 7021-8 ####[facility] LABCLIA [id number] [place] [address] [place] Hemoglobin (Bld) [Mass/Vol] 8.6 g/dL Low 11.5-15.5 [facility] Comment on above: Order Comment: Speci men Type: BLOOD SPECIMENOrdering Facility: [facility] Address: [address] [place] [address] Performed By: #### 5 7021-8 ####[facility] LABIA [id number] [place] [address] [place] Immature granulocytes (Bld) [#/Vol] 0.05 10*3/uL Normal <0.10 [facility] Comment on above: Order Comment: Speci men Type: BLOOD SPECIMENOrdering Facility: [facility] Address: [address] [place] [address] Performed By: #### 5 7021-8 ####[facility] LABCLIA [id number] [place] [address] [place] Immature granulocytes/100 WBC (Bld) 0.7 % Normal [facility] Comment on above: Order Comment: Speci men Type: BLOOD SPECIMENOrdering Facility: [facility] Address: [address] [place] [address] Performed By: #### 5 7021-8 ####[facility] LABCLIA [id number] [place] [address] [place] Lymphocytes (Bld) [#/Vol] 1.26 10*3/uL Normal 1.00-4.00 [facility] Comment on above: Order Comment: Speci men Type: BLOOD SPECIMENOrdering Facility: [facility] Address: [address] [place] [address] Performed By: #### 5 7021-8 ####[facility] LABCLIA [id number] [address] [place] Lymphocytes/100 WBC (Bld) 17.0 % Normal [facility] Comment on above: Order Comment: Speci men Type: BLOOD SPECIMENOrdering Facility: [facility] Address: [address] [place] [address] Performed By: #### 5 7021-8 ####[facility] LABCLIA [id number] [place] [address] [place] MCH (RBC) [Entitic mass] 27.0 pg Normal 26.0-34.0 [facility] [facility] Comment on above: Order Comment: Speci men Type: BLOOD SPECIMENOrdering Facility: [facility] Address: [address] [place] [address] Performed By: #### 5 7021-8 ####[facility] LABCLIA [id number] [place] [address] [place] MCHC (RBC) [Mass/Vol] 32.0 g/dL Normal 30.5-36.0 [facility] Comment on above: Order Comment: Speci men Type: BLOOD SPECIMENOrdering Facility: [facility] Address: [address] [place] [address] Performed By: #### 5 7021-8 ####[facility] LABCLIA [id number] [place] [address] [place] MCV (RBC) [Entitic vol] 84.6 fL Normal 80.0-100.0 [facility] Comment on above: Order Comment: Speci men Type: BLOOD SPECIMENOrdering Facility: [facility] Address: [address] [place] [address] Performed By: #### 5 7021-8 ####[facility] LABCLIA [id number] [place] [address] [place] Monocytes (Bld) [#/Vol] 0.50 10*3/uL Normal <0.87 [facility] Comment on above: Order Comment: Speci men Type: BLOOD SPECIMENOrdering Facility: [facility] Address: [address] [place] [address] Performed By: #### 5 7021-8 ####[facility] LABCLIA [id number] [place] [address] [place] Monocytes/100 WBC (Bld) 6.7 % Normal [facility] Comment on above: Order Comment: Speci men Type: BLOOD SPECIMENOrdering Facility: [facility] Address: [address] [place] [address] Performed By: #### 5 7021-8 ####[facility] LABCLIA [id number] [place] [address] [place] Neutrophils (Bld) [#/Vol] 5.33 10*3/uL Normal 1.45-7.50 [facility] Comment on above: Order Comment: Speci men Type: BLOOD SPECIMENOrdering Facility: [facility] Address: [address] [place] [address] Performed By: #### 5 7021-8 ####[facility] LABCLIA [id number] [place] [id number] [place] Neutrophils/100 WBC (Bld) 71.7 % Normal [facility] Comment on above: Order Comment: Speci men Type: BLOOD SPECIMENOrdering Facility: [facility] Address: [address] [place] [address] Performed By: #### 5 7021-8 ####[facility] LABCLIA [id number] [place] [address] [place] Nucleated RBC (Bld) [#/Vol] 10*3/uL Normal <0.01 [facility] Comment on above: Order Comment: Speci men Type: BLOOD SPECIMENOrdering Facility: [facility] Address: [address] [place] [address] Performed By: #### 5 7021-8 ####[facility] LABIA [id number] [place] [address] [place] Nucleated RBC/100 WBC (Bld) [Ratio] 0.0 /100 WBC Normal [facility] Comment on above: Order Comment: Speci men Type: BLOOD SPECIMENOrdering Facility: [facility] Address: [address] [place] [address] Performed By: #### 5 7021-8 ####[facility] LABIA [id number] [place] [address] [place] Platelet mean volume (Bld) [Entitic vol] 9.2 fL Normal 9.0-12.7 [facility] Comment on above: Order Comment: Speci men Type: BLOOD SPECIMENOrdering Facility: [facility] Address: [address] [place] [address] Performed By: #### 5 7021-8 ####[facility] LABIA [id number] [place] [address] [place] Platelets (Bld) [#/Vol] 365 10*3/uL Normal 150-400 [facility] Comment on above: Order Comment: Speci men Type: BLOOD SPECIMENOrdering Facility: [facility] Address: [address] [place] [address] Performed By: #### 5 7021-8 ####[facility] LABCLIA [id number] [place] [id number] [place] RBC (Bld) [#/Vol] 3.18 10*6/uL Low 3.90-5.20 [facility] Comment on above: Order Comment: Speci men Type: BLOOD SPECIMENOrdering Facility: [facility] Address: [address] [place] [address] Performed By: #### 5 7021-8 ####[facility] LABCLIA [id number] [address] [address] [place] WBC (Bld) [#/Vol] 7.43 10*3/uL Normal 3.70-11.00 [facility] Comment on above: Order Comment: Speci men Type: BLOOD SPECIMENOrdering Facility: [facility] Address: [address] [place] [address] Performed By: #### 5 7021-8 ####[facility] LABCLIA [id number] [place] [id number] [place] CONSULTon 12-20-2024 CONSULT Normal [facility] CONSULT Normal [facility] CONSULT PROGon 12-20-2024 CONSULT PROG Normal [facility] Comprehensive metabolic 2000 panelon 12-20-2024 Albumin [Mass/Vol] 2.7 g/dL Low 3.9-4.9 [facility] Comment on above: Order Comment: Speci men Type: BLOOD SPECIMENOrdering Facility: [facility] Address: [address] [place] [address] Performed By: #### 1 9123-9, 06479-7, 2777-1 ####[facility] LABCLIA [id number] [address] [address] [place] ALP [Catalytic activity/Vol] 95 U/L Normal 34-123 [facility] Comment on above: Order Comment: Speci men Type: BLOOD SPECIMENOrdering Facility: [facility] Address: [address] [place] [address] Performed By: #### 1 9123-9, 29214-7, 2777-1 ####[facility] LABCLIA [id number] [address] [place] [address] [place] ALT [Catalytic activity/Vol] 23 U/L Normal 7-38 [facility] Comment on above: Order Comment: Speci men Type: BLOOD SPECIMENOrdering Facility: [facility] Address: [address] [place] [address] Performed By: #### 1 9123-9, 38379-6, 277-1 ####[facility] LABCLIA [id number] [facility] [address] [place] [address] [place] Anion gap [Moles/Vol] 11 mmol/L Normal 8-15 [facility] Comment on above: Order Comment: Speci men Type: BLOOD SPECIMENOrdering Facility: [facility] Address: [address] [place] [address] Performed By: #### 1 9123-9, 60586-2, 277- ####[facility] LABCLIA [id number] [place] [address] [place] AST [Catalytic activity/Vol] 20 U/L Normal 13-35 [facility] Comment on above: Order Comment: Speci men Type: BLOOD SPECIMENOrdering Facility: [facility] Address: [address] [place] [address] Performed By: #### 1 9123-9, 71498-8, 2776- ####[facility] LABCLIA [id number] [facility] [address], [facility]95 [place] Bilirubin [Mass/Vol] 0.2 mg/dL Normal 0.2-1.3 [facility] Comment on above: Order Comment: Speci men Type: BLOOD SPECIMENOrdering Facility: [facility] Address: [address] [place] [address] Performed By: #### 1 9123-9, 28638-7, 277-1 ####[facility] LABCLIA [id number] [facility] [address] [place] [address] [place] Calcium [Mass/Vol] 8.8 mg/dL Normal 8.5-10.2 [facility] Comment on above: Order Comment: Speci men Type: BLOOD SPECIMENOrdering Facility: [facility] Address: [address] [place] [address] Performed By: #### 1 9123-9, 05959-4, 2777- ####[facility] LABCLIA [id number] [facility] [address] [place] [address] [place] Chloride [Moles/Vol] 106 mmol/L Normal 98-107 [facility] Comment on above: Order Comment: Speci men Type: BLOOD SPECIMENOrdering Facility: [facility] Address: [address] [place] [address] Performed By: #### 1 9123-9, 59733-4, 27712-25 ####[facility] LABCLIA [id number] [address] [address] [place] CO2 [Moles/Vol] 22 mmol/L Normal 22-30 [facility] Comment on above: Order Comment: Speci men Type: BLOOD SPECIMENOrdering Facility: [facility] Address: [address] [place], [place] [address] Performed By: #### 1 9123-9, 68279-6, 27712-25 ####[facility] LABCLIA [id number] [address] [place] [address] [place] Creatinine [Mass/Vol] 0.68 mg/dL Normal 0.58-0.96 [facility] Comment on above: Order Comment: Speci men Type: BLOOD SPECIMENOrdering Facility: [facility] Address: [address] [place], [place] [address] Performed By: #### 1 9123-9, 27533-1, 2777- ####[facility] LABCLIA [id number] [facility] [address] [place] [address] [place] Creatinine and Glomerular filtration rate.predicted panel (S/P/Bld) 112 mL/min/1.73m??? Normal >=60 [facility] Comment on above: Order Comment: Speci men Type: BLOOD SPECIMENOrdering Facility: [facility] Address: [address] [place] [address] Result Comment: Zeny mated Glomerular Filtration Rate (eGFR) is calculated using the 2020 CKD-EPI creatinine equation. This equation utilizes serum creatinine, sex, and age as parameters. The creatinine assay has traceable calibration to isotope dilution-mass spectrometry. Refer to KDIGO guidelines for clinical interpretation. In patients with unstable renal function, e.g. those with acute kidney injury, the eGFR may not accurately reflect actual GFR. Performed By: #### 1 9123-9, 94516-1, 2776- ####[facility] LABIA [id number] [place] [address] [place] Glucose [Mass/Vol] 127 mg/dL High 74-99 [facility] Comment on above: Order Comment: Dora finch Type: BLOOD SPECIMENOrdering Facility: [facility] Address: [address] [place] [address] Result Comment: The [place] [employer] (ADA) provides guidance for cutoff values for fasting glucose and random glucose. The ADA defines fasting as no caloric intake for at least 8 hours. Fasting plasma glucose results between 100 to 125 mg/dL indicate increased risk for diabetes (prediabetes).Fasting plasma glucose results greater than or equal to 126 mg/dL meet the criteria for diagnosis of diabetes. In the absence of unequivocal hyperglycemia, results should be confirmed by repeat testing. In a patient with classic symptoms of hyperglycemia or hyperglycemic crisis, random plasma glucose results greater than or equal to 200 mg/dL meet the criteria for diagnosis of diabetes.Reference: Standards of Medical Care in Diabetes 2016, [place] [employer]. Diabetes Care. 2016.39(Suppl 1). Performed By: #### 1 9123-9, 59860-8, 2776-06 ####[facility] LABIA [id number] [place] [id number] [place] Potassium [Moles/Vol] 4.0 mmol/L Normal 3.7-5.1 [facility] Comment on above: Order Comment: Dora finch Type: BLOOD SPECIMENOrdering Facility: [facility] Address: [address] [place] [address] Performed By: #### 1 9123-9, 51302-3, 2777-1 ####[facility] LABIA [id number] [place] [address] [place] Protein [Mass/Vol] 5.9 g/dL Low 6.3-8.0 [facility] Comment on above: Order Comment: Speci men Type: BLOOD SPECIMENOrdering Facility: [facility] Address: [address] [place] [address] Performed By: #### 1 9123-9, 99480-8, 2777-1 ####[facility] LABIA [id number] [place] [address] [place] Sodium [Moles/Vol] 139 mmol/L Normal 136-144 [facility] Comment on above: Order Comment: Speci men Type: BLOOD SPECIMENOrdering Facility: [facility] Address: [address] [place] [address] Performed By: #### 1 9123-9, 30483-2, 2777- ####[facility] LABIA [id number] [place] [address] [place] Urea nitrogen [Mass/Vol] 10 mg/dL Normal 7-21 [facility] Comment on above: Order Comment: Speci men Type: BLOOD SPECIMENOrdering Facility: [facility] Address: [address] [place] [address] Performed By: #### 1 9123-9, 56225-8, 2777- ####[facility] LABIA [id number] [address] [address] [place] Magnesium SerPl-mCncon 12-20 Magnesium [Mass/Vol] 1.9 mg/dL Normal 1.7-2.3 [facility] Comment on above: Order Comment: Speci men Type: BLOOD SPECIMENOrdering Facility: [facility] Address: [address] [place], [place] [address] Performed By: #### 1 9123-9, 67623-5, 2777-1 ####[facility] LABCLIA [id number] [address] [place] [address] [place] NUTRITIONon 12-20-2024 NUTRITION Normal [facility] Phosphate SerPl-mCncon 12-20 Phosphate [Mass/Vol] 4.6 mg/dL Normal 2.7-4.8 [facility] Comment on above: Order Comment: Speci men Type: BLOOD SPECIMENOrdering Facility: [facility] Address: [address] [place] [address] Performed By: #### 1 9123-9, 63977-3, 2777-1 ####[facility] LABCLIA [id number] [address], [facility]95 [place] CASE MANAGEMon 12-19-2024 CASE MANAGEM Normal [facility] CBC W Auto Differential pane l (Bld)on 12-19-2024 Basophils (Bld) [#/Vol] 10*3/uL Normal <0.11 [facility] Comment on above: Order Comment: Speci men Type: BLOOD SPECIMENOrdering Facility: [facility] Address: [address] [place] [address] Performed By: #### 5 7021-8 ####[facility] LABCLIA [id number] [place] [address] [place] Basophils/100 WBC (Bld) 0.3 % Normal [facility] Comment on above: Order Comment: Speci men Type: BLOOD SPECIMENOrdering Facility: [facility] Address: [address] [place] [address] Performed By: #### 5 7021-8 ####[facility] LABCLIA [id number] [place] [id number] [place] Differential cell count method Nom (Bld) Auto Normal [facility] Comment on above: Order Comment: Speci men Type: BLOOD SPECIMENOrdering Facility: [facility] Address: [address] [place] [address] Performed By: #### 5 7021-8 ####[facility] LABCLIA [id number] [place] [address] [place] Eosinophils (Bld) [#/Vol] 0.24 10*3/uL Normal <0.46 [facility] Comment on above: Order Comment: Speci men Type: BLOOD SPECIMENOrdering Facility: [facility] Address: [address] [place] [address] Performed By: #### 5 7021-8 ####[facility] LABCLIA [id number] [place] [address] [place] Eosinophils/100 WBC (Bld) 3.0 % Normal [facility] Comment on above: Order Comment: Speci men Type: BLOOD SPECIMENOrdering Facility: [facility] Address: [address] [place] [address] Performed By: #### 5 7021-8 ####[facility] LABCLIA [id number] [place] [address] [place] Erythrocyte distribution width (RBC) [Ratio] 19.9 % High 11.5-15.0 [facility] Comment on above: Order Comment: Speci men Type: BLOOD SPECIMENOrdering Facility: [facility] Address: [address] [place] [address] Performed By: #### 5 7021-8 ####[facility] LABCLIA [id number] [place] [address] [place] Hematocrit (Bld) [Volume fraction] 26.4 % Low 36.0-46.0 [facility] Comment on above: Order Comment: Speci men Type: BLOOD SPECIMENOrdering Facility: [facility] Address: [address] [place] [address] Performed By: #### 5 7021-8 ####[facility] LABCLIA [id number] [place] [address] [place] Hemoglobin (Bld) [Mass/Vol] 8.5 g/dL Low 11.5-15.5 [facility] Comment on above: Order Comment: Speci men Type: BLOOD SPECIMENOrdering Facility: [facility] Address: [address] [place] [address] Performed By: #### 5 7021-8 ####[facility] LABCLIA [id number] [place] [address] [place] Immature granulocytes (Bld) [#/Vol] 0.05 10*3/uL Normal <0.10 [facility] Comment on above: Order Comment: Speci men Type: BLOOD SPECIMENOrdering Facility: [facility] Address: [address] [place] [address] Performed By: #### 5 7021-8 ####[facility] LABCLIA [id number] [place] [address] [place] Immature granulocytes/100 WBC (Bld) 0.6 % Normal [facility] Comment on above: Order Comment: Speci men Type: BLOOD SPECIMENOrdering Facility: [facility] Address: [address] [place] [address] Performed By: #### 5 7021-8 ####[facility] LABCLIA [id number] [place] [address] [place] Lymphocytes (Bld) [#/Vol] 1.35 10*3/uL Normal 1.00-4.00 [facility] Comment on above: Order Comment: Speci men Type: BLOOD SPECIMENOrdering Facility: [facility] Address: [address] [place] [address] Performed By: #### 5 7021-8 ####[facility] LABCLIA [id number] [place] [address] [place] Lymphocytes/100 WBC (Bld) 17.1 % Normal [facility] Comment on above: Order Comment: Speci men Type: BLOOD SPECIMENOrdering Facility: [facility] Address: [address] [place] [address] Performed By: #### 5 7021-8 ####[facility] [id number] [address] [place] [facility] MCH (RBC) [Entitic mass] 27.3 pg Normal 26.0-34.0 [facility] Comment on above: Order Comment: Speci men Type: BLOOD SPECIMENOrdering Facility: [facility] Address: [address] [place] [address] Performed By: #### 5 7021-8 ####[facility] [id number] [place] [address] [place] MCHC (RBC) [Mass/Vol] 32.2 g/dL Normal 30.5-36.0 [facility] Comment on above: Order Comment: Speci men Type: BLOOD SPECIMENOrdering Facility: [facility] Address: [address] [place] [address] Performed By: #### 5 7021-8 ####[facility] [id number] [place] [address] [place] MCV (RBC) [Entitic vol] 84.9 fL Normal 80.0-100.0 [facility] Comment on above: Order Comment: Speci men Type: BLOOD SPECIMENOrdering Facility: [facility] Address: [address] [place] [address] Performed By: #### 5 7021-8 ####[facility] [id number] [place] [address] [place] Monocytes (Bld) [#/Vol] 0.67 10*3/uL Normal <0.87 [facility] Comment on above: Order Comment: Speci men Type: BLOOD SPECIMENOrdering Facility: [facility] Address: [address] [place] [address] Performed By: #### 5 7021-8 ####[facility] LABCLIA [id number] [address] [address] [place] Monocytes/100 WBC (Bld) 8.5 % Normal [facility] Comment on above: Order Comment: Speci men Type: BLOOD SPECIMENOrdering Facility: [facility] Address: [address] [place] [address] Performed By: #### 5 7021-8 ####[facility] LABCLIA [id number] [place] [address] [place] Neutrophils (Bld) [#/Vol] 5.58 10*3/uL Normal 1.45-7.50 [facility] Comment on above: Order Comment: Speci men Type: BLOOD SPECIMENOrdering Facility: [facility] Address: [address] [place] [address] Performed By: #### 5 7021-8 ####[facility] LABCLIA [id number] [place] [address] [place] Neutrophils/100 WBC (Bld) 70.5 % Normal [facility] Comment on above: Order Comment: Speci men Type: BLOOD SPECIMENOrdering Facility: [facility] Address: [address] [place] [address] Performed By: #### 5 7021-8 ####[facility] LABCLIA [id number] [place] [address] [place] Nucleated RBC (Bld) [#/Vol] 10*3/uL Normal <0.01 [facility] Comment on above: Order Comment: Speci men Type: BLOOD SPECIMENOrdering Facility: [facility] Address: [address] [place] [address] Performed By: #### 5 7021-8 ####[facility] LABCLIA [id number] [place] [id number] [place] Nucleated RBC/100 WBC (Bld) [Ratio] 0.0 /100 WBC Normal [facility] Comment on above: Order Comment: Speci men Type: BLOOD SPECIMENOrdering Facility: [facility] Address: [address] [place] [address] Performed By: #### 5 7021-8 ####[facility] LABCLIA [id number] [address] [address] [place] Platelet mean volume (Bld) [Entitic vol] 9.7 fL Normal 9.0-12.7 [facility] Comment on above: Order Comment: Speci men Type: BLOOD SPECIMENOrdering Facility: [facility] Address: [address] [place] [address] Performed By: #### 5 7021-8 ####[facility] LABIA [id number] [address] [address] [place] Platelets (Bld) [#/Vol] 362 10*3/uL Normal 150-400 [facility] Comment on above: Order Comment: Speci men Type: BLOOD SPECIMENOrdering Facility: [facility] Address: [address] [place] [address] Performed By: #### 5 7021-8 ####[facility] LABIA [id number] [place] [address] [place] RBC (Bld) [#/Vol] 3.11 10*6/uL Low 3.90-5.20 [facility] Comment on above: Order Comment: Speci men Type: BLOOD SPECIMENOrdering Facility: [facility] Address: [address] [place] [address] Performed By: #### 5 7021-8 ####[facility] LABIA [id number] [address] [address] [place] WBC (Bld) [#/Vol] 7.91 10*3/uL Normal 3.70-11.00 [facility] Comment on above: Order Comment: Speci men Type: BLOOD SPECIMENOrdering Facility: [facility] Address: [address] [place], [place] [address] Performed By: #### 5 7021-8 ####[facility] LABCLIA [id number] [facility] [address] [place] [address] [place] CONSULT PROGon 12-19-2024 CONSULT PROG Normal [facility] CRP SerPl-mCncon 12-19-2024 CRP [Mass/Vol] 5.7 mg/dL High <0.9 [facility] Comment on above: Order Comment: Speci men Type: BLOOD SPECIMENOrdering Facility: [facility] Address: [address] [place], [place] [address] Performed By: #### 1 988-5, 23506-7, 2776-06, 79677-4 ####[facility] LABCLIA [id number] [facility] [address] [place] [address] [place] Comprehensive metabolic 2000 panelon 12-19-2024 Albumin [Mass/Vol] 2.8 g/dL Low 3.9-4.9 [facility] Comment on above: Order Comment: Speci men Type: BLOOD SPECIMENOrdering Facility: [facility] Address: [address] [place] [address] Performed By: #### 1 988-5, 12730-9, 2776-06, 15878-0 ####[facility] LABCLIA [id number] [address], [facility] [place] ALP [Catalytic activity/Vol] 85 U/L Normal 34-123 [facility] Comment on above: Order Comment: Speci men Type: BLOOD SPECIMENOrdering Facility: [facility] Address: [address] [id number] Performed By: #### 1 988-5, 04584-6, 2776-06, 02844-0 ####[facility] LABCLIA [id number] [facility] [id number], [place] [address] [place] ALT [Catalytic activity/Vol] 12 U/L Normal 7-38 [facility] Comment on above: Order Comment: Speci men Type: BLOOD SPECIMENOrdering Facility: [facility] Address: [address] [place], [place] [address] Performed By: #### 1 988-5, 35539-2, 2776-06, 84277-9 ####[facility] LABCLIA [id number] [address] [address] [place] Anion gap [Moles/Vol] 11 mmol/L Normal 8-15 [facility] Comment on above: Order Comment: Speci men Type: BLOOD SPECIMENOrdering Facility: [facility] Address: [address] [place] [address] Performed By: #### 1 988-5, 24773-5, 2776-06, 74214-4 ####[facility] LABCLIA [id number] [place] [id number] [place] AST [Catalytic activity/Vol] 12 U/L Low 13-35 [facility] Comment on above: Order Comment: Speci men Type: BLOOD SPECIMENOrdering Facility: [facility] Address: [address] [place], [place] [address] Performed By: #### 1 988-5, 73560-1, 2776-06, 70487-6 ####[facility] LABCLIA [id number] [address] [address] [place] Bilirubin [Mass/Vol] 0.3 mg/dL Normal 0.2-1.3 [facility] Comment on above: Order Comment: Speci men Type: BLOOD SPECIMENOrdering Facility: [facility] Address: [address] [place], [place] [address] Performed By: #### 1 988-5, 57782-1, 2776-06, 53367-8 ####[facility] LABCLIA [id number] [address] [address] [place] Calcium [Mass/Vol] 8.6 mg/dL Normal 8.5-10.2 [facility] Comment on above: Order Comment: Speci men Type: BLOOD SPECIMENOrdering Facility: [facility] Address: [address] [place], [place] [address] Performed By: #### 1 988-5, 61966-1, 2776-06, 60215-8 ####[facility] LABCLIA [id number] [address] [address] [place] Chloride [Moles/Vol] 104 mmol/L Normal 98-107 [facility] Comment on above: Order Comment: Speci men Type: BLOOD SPECIMENOrdering Facility: [facility] Address: [address] [place] [address] Performed By: #### 1 988-5, 25254-8, 2776-06, 96490-6 ####[facility] LABCLIA [id number] [address] [address] [place] CO2 [Moles/Vol] 22 mmol/L Normal 22-30 [facility] Comment on above: Order Comment: Speci men Type: BLOOD SPECIMENOrdering Facility: [facility] Address: [address] [place], [place] [address] Performed By: #### 1 988-5, , 2776-06, 54428-2 ####[facility] LABIA [id number] [address] [address] [place] Creatinine [Mass/Vol] 0.64 mg/dL Normal 0.58-0.96 [facility] Comment on above: Order Comment: Speci men Type: BLOOD SPECIMENOrdering Facility: [facility] Address: [address] [place], [place] [address] Performed By: #### 1 988-5, 30011-5, 2776-06, 10293-1 ####[facility] LABCLIA [id number] [address] [address] [place] Creatinine and Glomerular filtration rate.predicted panel (S/P/Bld) 114 mL/min/1.73m??? Normal >=60 [facility] Comment on above: Order Comment: Dora finch Type: BLOOD SPECIMENOrdering Facility: [facility] Address: [address] [place] [address] Result Comment: Zeny mated Glomerular Filtration Rate (eGFR) is calculated using the 2020 CKD-EPI creatinine equation. This equation utilizes serum creatinine, sex, and age as parameters. The creatinine assay has traceable calibration to isotope dilution-mass spectrometry. Refer to KDIGO guidelines for clinical interpretation. In patients with unstable renal function, e.g. those with acute kidney injury, the eGFR may not accurately reflect actual GFR. Performed By: #### 1 988-5, 65898-2, 2776-, 88424-2 ####[facility] LABIA [id number] [place] [id number] [place] Glucose [Mass/Vol] 103 mg/dL High 74-99 [facility] Comment on above: Order Comment: Dora finch Type: BLOOD SPECIMENOrdering Facility: [facility] Address: [address] [place] [address] Result Comment: The [place] [employer] (ADA) provides guidance for cutoff values for fasting glucose and random glucose. The ADA defines fasting as no caloric intake for at least 8 hours. Fasting plasma glucose results between 100 to 125 mg/dL indicate increased risk for diabetes (prediabetes).Fasting plasma glucose results greater than or equal to 126 mg/dL meet the criteria for diagnosis of diabetes. In the absence of unequivocal hyperglycemia, results should be confirmed by repeat testing. In a patient with classic symptoms of hyperglycemia or hyperglycemic crisis, random plasma glucose results greater than or equal to 200 mg/dL meet the criteria for diagnosis of diabetes.Reference: Standards of Medical Care in Diabetes 2016, [place] [employer]. Diabetes Care. 2016.39(Suppl 1). Performed By: #### 1 988-5, 14119-0, 277-, 16807-8 ####[facility] LABIA [id number] [address] [address] [place] Potassium [Moles/Vol] 3.6 mmol/L Low 3.7-5.1 [facility] Comment on above: Order Comment: Speci men Type: BLOOD SPECIMENOrdering Facility: [facility] Address: [address] [place] [address] Performed By: #### 1 988-5, 77108-4, 2776-06, 41674-6 ####[facility] LABCLIA [id number] [address] [place] [address] [place] Protein [Mass/Vol] 5.5 g/dL Low 6.3-8.0 [facility] Comment on above: Order Comment: Speci men Type: BLOOD SPECIMENOrdering Facility: [facility] Address: [address] [place], [place] [address] Performed By: #### 1 988-5, 64145-2, 2776-06, 67592-9 ####[facility] LABIA [id number] [address] [address] [place] Sodium [Moles/Vol] 137 mmol/L Normal 136-144 [facility] Comment on above: Order Comment: Speci men Type: BLOOD SPECIMENOrdering Facility: [facility] Address: [address] [place], [place] [address] Performed By: #### 1 988-5, 63289-6, 2776-06, 81098-3 ####[facility] LABIA [id number] [address] [address] [place] Urea nitrogen [Mass/Vol] 11 mg/dL Normal 7-21 [facility] Comment on above: Order Comment: Speci men Type: BLOOD SPECIMENOrdering Facility: [facility] Address: [address] [place] [address] Performed By: #### 1 988-5, 82668-9, 27712-25, 83631-9 ####[facility] LABIA [id number] [address] [address] [place] Magnesium SerPl-mCncon 12-19 Magnesium [Mass/Vol] 1.9 mg/dL Normal 1.7-2.3 [facility] Comment on above: Order Comment: Speci men Type: BLOOD SPECIMENOrdering Facility: [facility] Address: [address] [place] [address] Performed By: #### 1 988-5, 27564-6, 2776-06, 78569-2 ####[facility] LABCLIA [id number] [address] [place] [address] [place] NURSING PROGon 12-19-2024 NURSING PROG Normal [facility] Phosphate SerPl-mCncon 12-19 Phosphate [Mass/Vol] 4.2 mg/dL Normal 2.7-4.8 [facility] Comment on above: Order Comment: Speci men Type: BLOOD SPECIMENOrdering Facility: [facility] Address: [address] [place] [address] Performed By: #### 1 988-5, 24996-4, 2776-06, ####[facility] LABCLIA [id number] [address] [place] [address] [place] CBC W Auto Differential pane l (Bld)on 12-18-2024 Basophils (Bld) [#/Vol] 0.03 10*3/uL Normal <0.11 [facility] Comment on above: Order Comment: Speci men Type: BLOOD SPECIMENOrdering Facility: [facility] Address: [address] [place] [address] Performed By: #### 5 7021-8 ####[facility] LABCLIA [id number] [facility] [address] [place] [address] [place] Basophils/100 WBC (Bld) 0.4 % Normal [facility] Comment on above: Order Comment: Speci men Type: BLOOD SPECIMENOrdering Facility: [facility] Address: [address] [place] [address] Performed By: #### 5 7021-8 ####[facility] LABCLIA [id number] [address] [place] [address] [place] Differential cell count method Nom (Bld) Auto Normal [facility] Comment on above: Order Comment: Speci men Type: BLOOD SPECIMENOrdering Facility: [facility] Address: [facility] [place] [address] Performed By: #### 5 7021-8 ####[facility] LABCLIA [id number] [facility] [address], [place] [address] [place] Eosinophils (Bld) [#/Vol] 0.31 10*3/uL Normal <0.46 [facility] Comment on above: Order Comment: Speci men Type: BLOOD SPECIMENOrdering Facility: [facility] Address: [address] [place] [address] Performed By: #### 5 7021-8 ####[facility] LABCLIA [id number] [address], [place] [address] [place] Eosinophils/100 WBC (Bld) 4.4 % Normal [facility] Comment on above: Order Comment: Speci men Type: BLOOD SPECIMENOrdering Facility: [facility] Address: [address] [place] [address] Performed By: #### 5 7021-8 ####[facility] LABCLIA [id number] [place] [address] [place] Erythrocyte distribution width (RBC) [Ratio] 21.3 % High 11.5-15.0 [facility] Comment on above: Order Comment: Speci men Type: BLOOD SPECIMENOrdering Facility: [facility] Address: [address] [place] [address] Performed By: #### 5 7021-8 ####[facility] LABCLIA [id number] [place] [address] [place] Hematocrit (Bld) [Volume fraction] 21.9 % Low 36.0-46.0 [facility] Comment on above: Order Comment: Speci men Type: BLOOD SPECIMENOrdering Facility: [facility] Address: [address] [place] [address] Performed By: #### 5 7021-8 ####[facility] LABCLIA [id number] [address], [place] [address] [place] Hemoglobin (Bld) [Mass/Vol] 6.8 g/dL Low 11.5-15.5 [facility] Comment on above: Order Comment: Speci men Type: BLOOD SPECIMENOrdering Facility: [facility] Address: [address] [place] [address] Performed By: #### 5 7021-8 ####[facility] LABCLIA [id number] [address], [place] [address] [place] Immature granulocytes (Bld) [#/Vol] 0.05 10*3/uL Normal <0.10 [facility] Comment on above: Order Comment: Speci men Type: BLOOD SPECIMENOrdering Facility: [facility] Address: [address] [place] [address] Performed By: #### 5 7021-8 ####[facility] LABIA [id number] [place] [address] [place] Immature granulocytes/100 WBC (Bld) 0.7 % Normal [facility] Comment on above: Order Comment: Speci men Type: BLOOD SPECIMENOrdering Facility: [facility] Address: [address] [place] [address] Performed By: #### 5 7021-8 ####[facility] LABCLIA [id number] [place] [id number] [place] Lymphocytes (Bld) [#/Vol] 1.19 10*3/uL Normal 1.00-4.00 [facility] Comment on above: Order Comment: Speci men Type: BLOOD SPECIMENOrdering Facility: [facility] Address: [address] [place] [address] Performed By: #### 5 7021-8 ####[facility] LABCLIA [id number] [place] [id number] [place] Lymphocytes/100 WBC (Bld) 17.0 % Normal [facility] Comment on above: Order Comment: Speci men Type: BLOOD SPECIMENOrdering Facility: [facility] Address: [address] [place] [address] Performed By: #### 5 7021-8 ####[facility] LABIA [id number] [place] [address] [place] MCH (RBC) [Entitic mass] 26.7 pg Normal 26.0-34.0 [facility] Comment on above: Order Comment: Speci men Type: BLOOD SPECIMENOrdering Facility: [facility] Address: [address] [place] [address] Performed By: #### 5 7021-8 ####[facility] LABIA [id number] [place] [address] [place] MCHC (RBC) [Mass/Vol] 31.1 g/dL Normal 30.5-36.0 [facility] Comment on above: Order Comment: Speci men Type: BLOOD SPECIMENOrdering Facility: [facility] Address: [address] [place] [address] Performed By: #### 5 7021-8 ####[facility] LABIA [id number] [place] [address] [place] MCV (RBC) [Entitic vol] 85.9 fL Normal 80.0-100.0 [facility] Comment on above: Order Comment: Speci men Type: BLOOD SPECIMENOrdering Facility: [facility] Address: [address] [place] [address] Performed By: #### 5 7021-8 ####[facility] LABIA [id number] [place] [address] [place] Monocytes (Bld) [#/Vol] 0.48 10*3/uL Normal <0.87 [facility] Comment on above: Order Comment: Speci men Type: BLOOD SPECIMENOrdering Facility: [facility] Address: [address] [place] [address] Performed By: #### 5 7021-8 ####[facility] LABCLIA [id number] [place] [address] [place] Monocytes/100 WBC (Bld) 6.8 % Normal [facility] Comment on above: Order Comment: Speci men Type: BLOOD SPECIMENOrdering Facility: [facility] Address: [address] [place] [address] Performed By: #### 5 7021-8 ####[facility] LABCLIA [id number] [place] [address] [place] Neutrophils (Bld) [#/Vol] 4.96 10*3/uL Normal 1.45-7.50 [facility] Comment on above: Order Comment: Speci men Type: BLOOD SPECIMENOrdering Facility: [facility] Address: [address] [place] [address] Performed By: #### 5 7021-8 ####[facility] LABIA [id number] [place] [address] [place] Neutrophils/100 WBC (Bld) 70.7 % Normal [facility] Comment on above: Order Comment: Speci men Type: BLOOD SPECIMENOrdering Facility: [facility] Address: [address] [place] [address] Performed By: #### 5 7021-8 ####[facility] LABCLIA [id number] [place] [id number] [place] Nucleated RBC (Bld) [#/Vol] 10*3/uL Normal <0.01 [facility] Comment on above: Order Comment: Speci men Type: BLOOD SPECIMENOrdering Facility: [facility] Address: [address] [place] [address] Performed By: #### 5 7021-8 ####[facility] LABCLIA [id number] [place] [id number] [place] Nucleated RBC/100 WBC (Bld) [Ratio] 0.0 /100 WBC Normal [facility] Comment on above: Order Comment: Speci men Type: BLOOD SPECIMENOrdering Facility: [facility] Address: [address] [place] [address] Performed By: #### 5 7021-8 ####[facility] LABCLIA [id number] [place] [address] [place] Platelet mean volume (Bld) [Entitic vol] 9.7 fL Normal 9.0-12.7 [facility] Comment on above: Order Comment: Speci men Type: BLOOD SPECIMENOrdering Facility: [facility] Address: [address] [place] [address] Performed By: #### 5 7021-8 ####[facility] LABCLIA [id number] [place] [address] [place] Platelets (Bld) [#/Vol] 265 10*3/uL Normal 150-400 [facility] Comment on above: Order Comment: Speci men Type: BLOOD SPECIMENOrdering Facility: [facility] Address: [address] [place] [address] Performed By: #### 5 7021-8 ####[facility] LABCLIA [id number] [place] [address] [place] RBC (Bld) [#/Vol] 2.55 10*6/uL Low 3.90-5.20 [facility] Comment on above: Order Comment: Speci men Type: BLOOD SPECIMENOrdering Facility: [facility] Address: [address] [place] [address] Performed By: #### 5 7021-8 ####[facility] LABCLIA [id number] [place] [id number] [place] WBC (Bld) [#/Vol] 7.02 10*3/uL Normal 3.70-11.00 [facility] Comment on above: Order Comment: Speci men Type: BLOOD SPECIMENOrdering Facility: [facility] Address: [address] [place] [address] Performed By: #### 5 7021-8 ####[facility] LABIA [id number] [place] [id number] [place] CBC panel Auto (Bld)on 12-18 Erythrocyte distribution width (RBC) [Ratio] 20.3 % High 11.5-15.0 [facility] Comment on above: Order Comment: Speci men Type: BLOOD SPECIMENOrdering Facility: [facility] Address: [address] [place] [address] Performed By: #### 5 8410-2 ####[facility] LABIA [id number] [place] [address] [place] Hematocrit (Bld) [Volume fraction] 26.1 % Low 36.0-46.0 [facility] Comment on above: Order Comment: Speci men Type: BLOOD SPECIMENOrdering Facility: [facility] Address: [address] [place] [address] Performed By: #### 5 8410-2 ####[facility] LABIA [id number] [place] [address] [place] Hemoglobin (Bld) [Mass/Vol] 7.9 g/dL Low 11.5-15.5 [facility] Comment on above: Order Comment: Speci men Type: BLOOD SPECIMENOrdering Facility: [facility] Address: [address] [place] [address] Performed By: #### 5 8410-2 ####[facility] [id number] [place] [id number] [place] MCH (RBC) [Entitic mass] 27.0 pg Normal 26.0-34.0 [facility] Comment on above: Order Comment: Speci men Type: BLOOD SPECIMENOrdering Facility: [facility] Address: [address] [place], [place] [address] Performed By: #### 5 8410-2 ####[facility] LABIA [id number] [place] [address] [place] MCHC (RBC) [Mass/Vol] 30.3 g/dL Low 30.5-36.0 [facility] Comment on above: Order Comment: Speci men Type: BLOOD SPECIMENOrdering Facility: [facility] Address: [address] [place] [address] Performed By: #### 5 8410-2 ####[facility] LABIA [id number] [place] [address] [place] MCV (RBC) [Entitic vol] 89.1 fL Normal 80.0-100.0 [facility] Comment on above: Order Comment: Speci men Type: BLOOD SPECIMENOrdering Facility: [facility] Address: [address] [place] [address] Performed By: #### 5 8410-2 ####[facility] LABIA [id number] [place] [address] [place] Nucleated RBC (Bld) [#/Vol] 10*3/uL Normal <0.01 [facility] Comment on above: Order Comment: Speci men Type: BLOOD SPECIMENOrdering Facility: [facility] Address: [address] [place] [address] Performed By: #### 5 8410-2 ####[facility] LABIA [id number] [place] [address] [place] Platelet mean volume (Bld) [Entitic vol] 9.8 fL Normal 9.0-12.7 [facility] Comment on above: Order Comment: Speci men Type: BLOOD SPECIMENOrdering Facility: [facility] Address: [address] [place] [address] Performed By: #### 5 8410-2 ####[facility] LABIA [id number] [place] [address] [place] Platelets (Bld) [#/Vol] 287 10*3/uL Normal 150-400 [facility] Comment on above: Order Comment: Speci men Type: BLOOD SPECIMENOrdering Facility: [facility] Address: [address] [place] [address] Performed By: #### 5 8410-2 ####[facility] LABIA [id number] [place] [address] [place] RBC (Bld) [#/Vol] 2.93 10*6/uL Low 3.90-5.20 [facility] Comment on above: Order Comment: Speci men Type: BLOOD SPECIMENOrdering Facility: [facility] Address: [address] [place] [address] Performed By: #### 5 8410-2 ####[facility] LABCLIA [id number] [place] [address] [place] WBC (Bld) [#/Vol] 8.64 10*3/uL Normal 3.70-11.00 [facility] Comment on above: Order Comment: Speci men Type: BLOOD SPECIMENOrdering Facility: [facility] Address: [address] [place] [address] Performed By: #### 5 8410-2 ####[facility] LABIA [id number] [place] [address] [place] Erythrocyte distribution width (RBC) [Ratio] 21.2 % High 11.5-15.0 [facility] Comment on above: Order Comment: Speci men Type: BLOOD SPECIMENOrdering Facility: [facility] Address: [address] [place] [address] Performed By: #### 5 8410-2 ####[facility] LABCLIA [id number] [place] [id number] [place] Hematocrit (Bld) [Volume fraction] 22.2 % Low 36.0-46.0 [facility] Comment on above: Order Comment: Speci men Type: BLOOD SPECIMENOrdering Facility: [facility] Address: [address] [place] [address] Performed By: #### 5 8410-2 ####[facility] [id number] [place] [address] [place] Hemoglobin (Bld) [Mass/Vol] 6.9 g/dL Low 11.5-15.5 [facility] Comment on above: Order Comment: Speci men Type: BLOOD SPECIMENOrdering Facility: [facility] Address: [address] [place] [address] Performed By: #### 5 8410-2 ####[facility] [id number] [place] [address] [place] MCH (RBC) [Entitic mass] 27.0 pg Normal 26.0-34.0 [facility] Comment on above: Order Comment: Speci men Type: BLOOD SPECIMENOrdering Facility: [facility] Address: [address] [place] [address] Performed By: #### 5 8410-2 ####[facility] [id number] [address] [place] MCHC (RBC) [Mass/Vol] 31.1 g/dL Normal 30.5-36.0 [facility] Comment on above: Order Comment: Speci men Type: BLOOD SPECIMENOrdering Facility: [facility] Address: [address] [place] [address] Performed By: #### 5 8410-2 ####[facility] [id number] [place] [address] [place] MCV (RBC) [Entitic vol] 86.7 fL Normal 80.0-100.0 [facility] Comment on above: Order Comment: Speci men Type: BLOOD SPECIMENOrdering Facility: [facility] Address: [address] [place] [address] Performed By: #### 5 8410-2 ####[facility] LABCLIA [id number] [facility] [address] [place] [address] [place] Nucleated RBC (Bld) [#/Vol] 10*3/uL Normal <0.01 [facility] Comment on above: Order Comment: Speci men Type: BLOOD SPECIMENOrdering Facility: [facility] Address: [address] [place] [address] Performed By: #### 5 8410-2 ####[facility] LABCLIA [id number] [address] [place] [address] [place] Platelet mean volume (Bld) [Entitic vol] 9.5 fL Normal 9.0-12.7 [facility] Comment on above: Order Comment: Speci men Type: BLOOD SPECIMENOrdering Facility: [facility] Address: [address] [place] [address] Performed By: #### 5 8410-2 ####[facility] LABIA [id number] [address] [place] [address] [place] Platelets (Bld) [#/Vol] 284 10*3/uL Normal 150-400 [facility] Comment on above: Order Comment: Speci men Type: BLOOD SPECIMENOrdering Facility: [facility] Address: [address] [place] [address] Performed By: #### 5 8410-2 ####[facility] LABCLIA [id number] [address] [place] [address] [place] RBC (Bld) [#/Vol] 2.56 10*6/uL Low 3.90-5.20 [facility] Comment on above: Order Comment: Speci men Type: BLOOD SPECIMENOrdering Facility: [facility] Address: [address] [place] [address] Performed By: #### 5 8410-2 ####[facility] LABCLIA [id number] [address] [place] [address] [place] WBC (Bld) [#/Vol] 7.45 10*3/uL Normal 3.70-11.00 [facility] Comment on above: Order Comment: Speci men Type: BLOOD SPECIMENOrdering Facility: [facility] Address: [address] [place] [address] Performed By: #### 5 8410-2 ####[facility] LABCLIA [id number] [address] [address] [place] Comprehensive metabolic 2000 panelon 12-18-2024 Albumin [Mass/Vol] 2.3 g/dL Low 3.9-4.9 [facility] Comment on above: Order Comment: Speci men Type: BLOOD SPECIMENOrdering Facility: [facility] Address: [address] [place] [address] Performed By: #### 2 4323-8, 28778-1, 257-8, 2777-1 ####[facility] LABCLIA [id number] [place] [address] [place] ALP [Catalytic activity/Vol] 71 U/L Normal 34-123 [facility] Comment on above: Order Comment: Speci men Type: BLOOD SPECIMENOrdering Facility: [facility] Address: [address] [place] [address] Performed By: #### 2 4323-8, 82868-4, 257-8, 2777-1 ####[facility] LABCLIA [id number] [place] [id number] [place] ALT [Catalytic activity/Vol] 9 U/L Normal 7-38 [facility] Comment on above: Order Comment: Speci men Type: BLOOD SPECIMENOrdering Facility: [facility] Address: [address] [place] [address] Performed By: #### 2 4323-8, 23475-8, 2571-8, 2777-1 ####[facility] LABCLIA [id number] [place] [id number] [place] Anion gap [Moles/Vol] 10 mmol/L Normal 8-15 [facility] Comment on above: Order Comment: Speci men Type: BLOOD SPECIMENOrdering Facility: [facility] Address: [address] [place] [address] Performed By: #### 2 4323-8, 32742-0, 2571-8, 2777-1 ####[facility] LABCLIA [id number] [place] [address] [place] AST [Catalytic activity/Vol] 9 U/L Low 13-35 [facility] Comment on above: Order Comment: Speci men Type: BLOOD SPECIMENOrdering Facility: [facility] Address: [address] [place] [address] Performed By: #### 2 4323-8, 44901-7, 2571-8, 2777-1 ####[facility] LABCLIA [id number] [place] [address] [place] Bilirubin [Mass/Vol] 0.2 mg/dL Normal 0.2-1.3 [facility] Comment on above: Order Comment: Speci men Type: BLOOD SPECIMENOrdering Facility: [facility] Address: [address] [place] [address] Performed By: #### 2 4323-8, 10751-2, 2571-8, 2777-1 ####[facility] LABCLIA [id number] [place] [address] [place] Calcium [Mass/Vol] 8.0 mg/dL Low 8.5-10.2 [facility] Comment on above: Order Comment: Speci men Type: BLOOD SPECIMENOrdering Facility: [facility] Address: [address] [place] [address] Performed By: #### 2 4323-8, 70777-6, 2571-8, 2777-1 ####[facility] LABCLIA [id number] [place] [id number] [place] Chloride [Moles/Vol] 106 mmol/L Normal 98-107 [facility] Comment on above: Order Comment: Speci men Type: BLOOD SPECIMENOrdering Facility: [facility] Address: [address] [place] [address] Performed By: #### 2 4323-8, 99242-4, 2571-8, 2777-1 ####[facility] LABCLIA [id number] [place] [address] [place] CO2 [Moles/Vol] 22 mmol/L Normal 22-30 [facility] Comment on above: Order Comment: Speci men Type: BLOOD SPECIMENOrdering Facility: [facility] Address: [address] [place] [address] Performed By: #### 2 4323-8, 93585-0, 2571-8, 2777-1 ####[facility] LABIA [id number] [place] [address] [place] Creatinine [Mass/Vol] 0.53 mg/dL Low 0.58-0.96 [facility] Comment on above: Order Comment: Speci men Type: BLOOD SPECIMENOrdering Facility: [facility] Address: [address] [place] [address] Performed By: #### 2 4323-8, 32012-6, 2571-8, 2777-1 ####[facility] LABIA [id number] [place] [address] [place] Creatinine and Glomerular filtration rate.predicted panel (S/P/Bld) 119 mL/min/1.73m??? Normal >=60 [facility] Comment on above: Order Comment: Speci men Type: BLOOD SPECIMENOrdering Facility: [facility] Address: [address] [place] [address] Result Comment: Zeny mated Glomerular Filtration Rate (eGFR) is calculated using the 2020 CKD-EPI creatinine equation. This equation utilizes serum creatinine, sex, and age as parameters. The creatinine assay has traceable calibration to isotope dilution-mass spectrometry. Refer to KDIGO guidelines for clinical interpretation. In patients with unstable renal function, e.g. those with acute kidney injury, the eGFR may not accurately reflect actual GFR. Performed By: #### 2 3-8, 73956-5, 2571-01, 2776- ####[facility] LABCLIA [id number] [facility] [address] [address] [place] Glucose [Mass/Vol] 115 mg/dL High 74-99 [facility] Comment on above: Order Comment: Dora finch Type: BLOOD SPECIMENOrdering Facility: [facility] Address: [address] [place] [address] Result Comment: The [place] Diabetes [employer] (ADA) provides guidance for cutoff values for fasting glucose and random glucose. The ADA defines fasting as no caloric intake for at least 8 hours. Fasting plasma glucose results between 100 to 125 mg/dL indicate increased risk for diabetes (prediabetes).Fasting plasma glucose results greater than or equal to 126 mg/dL meet the criteria for diagnosis of diabetes. In the absence of unequivocal hyperglycemia, results should be confirmed by repeat testing. In a patient with classic symptoms of hyperglycemia or hyperglycemic crisis, random plasma glucose results greater than or equal to 200 mg/dL meet the criteria for diagnosis of diabetes.Reference: Standards of Medical Care in Diabetes 2016, [place] [employer]. Diabetes Care. 2016.39(Suppl 1). Performed By: #### 2 4323-8, 17049-4, 2571-01, 2776-06 ####[facility] LABCLIA [id number] [facility] [address] [address] [place] Potassium [Moles/Vol] 3.3 mmol/L Low 3.7-5.1 [facility] Comment on above: Order Comment: Dora finch Type: BLOOD SPECIMENOrdering Facility: [facility] Address: [address] [place] [id number] Performed By: #### 2 4323-8, 25964-9, 8, 2776- ####[facility] LABCLIA [id number] [facility] [id number] [place] Protein [Mass/Vol] 5.1 g/dL Low 6.3-8.0 [facility] Comment on above: Order Comment: Speci men Type: BLOOD SPECIMENOrdering Facility: [facility] Address: [address] [place] [address] Performed By: #### 2 4323-8, 51961-2, 2571-8, 2777-1 ####[facility] LABCLIA [id number] [place] [address] [place] Sodium [Moles/Vol] 138 mmol/L Normal 136-144 [facility] Comment on above: Order Comment: Speci men Type: BLOOD SPECIMENOrdering Facility: [facility] Address: [address] [place] [address] Performed By: #### 2 4323-8, 12107-6, 2570-8, 2777-1 ####[facility] LABCLIA [id number] [place] [address] [place] Urea nitrogen [Mass/Vol] 8 mg/dL Normal 7-21 [facility] Comment on above: Order Comment: Speci men Type: BLOOD SPECIMENOrdering Facility: [facility] Address: [address] [place] [address] Performed By: #### 2 4323-8, 16670-7, 2570-8, 2777-1 ####[facility] LABCLIA [id number] [place] [id number] [place] Magnesium SerPl-mCncon 12-18 Magnesium [Mass/Vol] 1.8 mg/dL Normal 1.7-2.3 [facility] Comment on above: Order Comment: Speci men Type: BLOOD SPECIMENOrdering Facility: [facility] Address: [address] [place] [address] Performed By: #### 2 4323-8, 53345-8, 257-8, 2777-1 ####[facility] LABCLIA [id number] [address] [address] [place] Phosphate SerPl-mCncon 12-18 Phosphate [Mass/Vol] 3.8 mg/dL Normal 2.7-4.8 [facility] Comment on above: Order Comment: Speci men Type: BLOOD SPECIMENOrdering Facility: [facility] Address: [address] [place] [address] Performed By: #### 2 4323-8, 05619-6, 2571-8, 2777-1 ####[facility] LABCLIA [id number] [place] [id number] [place] TYPE + SCREENon 12-18-2024 ABO O Normal [facility] Comment on above: Order Comment: Speci men Type: BLOOD SPECIMENOrdering Facility: [facility] Address: [address] [place] [address] Performed By: #### T SCR ####[facility] BANKCLIA [id number] [place] [address] [place] Rh Nom (Bld) Positive Normal [facility] Comment on above: Order Comment: Speci men Type: BLOOD SPECIMENOrdering Facility: [facility] Address: [address] [place] [address] Performed By: #### T SCR ####[facility] BLOOD BANKCLIA [id number] [place] [address] [place] TYPE AND SCREEN EXPIRATION 12/21/2024 23:59 Normal [facility] Comment on above: Order Comment: Speci men Type: BLOOD SPECIMENOrdering Facility: [facility] Address: [address] [place] [address] Performed By: #### T SCR ####[facility] BLOOD BANKCLIA [id number] [place] [id number] [place] Trigl SerPl-mCncon Triglyceride [Mass/Vol] 81 mg/dL Normal <150 [facility] Comment on above: Order Comment: Speci men Type: BLOOD SPECIMENOrdering Facility: [facility] Address: [address] [place] [address] Result Comment: <150 mg/dL, Normal 150-199 mg/dL, Borderline high 200-499 mg/dL, High>499 mg/dL, Very highReference:1. National Cholesterol Education Program ATP III Guideline At-A-Glance Quick Desk Reference: National Heart, Lung, and Blood [place]. National Institutes of Health. 2001: NIH Publication No. 01-3305. Performed By: #### 2 4323-8, 98486-8, 2571-8, 2777-1 ####[facility] LABCLIA [id number] [place] [id number] [place] Triglyceride [Mass/Vol]on FASTING TIME 12 hrs Normal [facility] Comment on above: Order Comment: Speci men Type: BLOOD SPECIMENOrdering Facility: [facility] Address: [address] [place] [address] Performed By: #### 2 4323-8, 52964-0, 2571-8, 2777-1 ####[facility] LABIA [id number] [place] [id number] [place] Basic metabolic 2000 panelon 12-17-2024 Anion gap [Moles/Vol] 9 mmol/L Normal 8-15 [facility] Comment on above: Order Comment: Speci men Type: BLOOD SPECIMENOrdering Facility: [facility] Address: [address] [place] [address] Performed By: #### 2 4321-2 ####[facility] LABIA [id number] [address] [address] [place] Calcium [Mass/Vol] 8.0 mg/dL Low 8.5-10.2 [facility] Comment on above: Order Comment: Speci men Type: BLOOD SPECIMENOrdering Facility: [facility] Address: [address] [place] [address] Performed By: #### 2 4321-2 ####[facility] LABCLIA [id number] [place] [id number] [place] Chloride [Moles/Vol] 104 mmol/L Normal 98-107 [facility] Comment on above: Order Comment: Speci men Type: BLOOD SPECIMENOrdering Facility: [facility] Address: [address] [place] [address] Performed By: #### 2 4321-2 ####[facility] LABCLIA [id number] [place] [id number] [place] CO2 [Moles/Vol] 23 mmol/L Normal 22-30 [facility] Comment on above: Order Comment: Speci men Type: BLOOD SPECIMENOrdering Facility: [facility] Address: [address] [place] [address] Performed By: #### 2 4321-2 ####[facility] LABCLIA [id number] [address] [place] Creatinine [Mass/Vol] 0.54 mg/dL Low 0.58-0.96 [facility] Comment on above: Order Comment: Speci men Type: BLOOD SPECIMENOrdering Facility: [facility] Address: [address] [place] [address] Performed By: #### 2 4321-2 ####[facility] LABIA [id number] [address] OF [facility] Creatinine and Glomerular filtration rate.predicted panel (S/P/Bld) 119 mL/min/1.73m??? Normal >=60 [facility] Comment on above: Order Comment: Speci men Type: BLOOD SPECIMENOrdering Facility: [facility] Address: [address] [place] [address] Result Comment: Zeny mated Glomerular Filtration Rate (eGFR) is calculated using the 2020 CKD-EPI creatinine equation. This equation utilizes serum creatinine, sex, and age as parameters. The creatinine assay has traceable calibration to isotope dilution-mass spectrometry. Refer to KDIGO guidelines for clinical interpretation. In patients with unstable renal function, e.g. those with acute kidney injury, the eGFR may not accurately reflect actual GFR. Performed By: #### 2 4321-2 ####[facility] [id number] [place] [address] [place] Glucose [Mass/Vol] 152 mg/dL High 74-99 [facility] Comment on above: Order Comment: Dora finch Type: BLOOD SPECIMENOrdering Facility: [facility] Address: [address] [place] [address] Result Comment: The [place] Diabetes Association (ADA) provides guidance for cutoff values for fasting glucose and random glucose. The ADA defines fasting as no caloric intake for at least 8 hours. Fasting plasma glucose results between 100 to 125 mg/dL indicate increased risk for diabetes (prediabetes).Fasting plasma glucose results greater than or equal to 126 mg/dL meet the criteria for diagnosis of diabetes. In the absence of unequivocal hyperglycemia, results should be confirmed by repeat testing. In a patient with classic symptoms of hyperglycemia or hyperglycemic crisis, random plasma glucose results greater than or equal to 200 mg/dL meet the criteria for diagnosis of diabetes.Reference: Standards of Medical Care in Diabetes 2016, [place] [employer]. Diabetes Care. 2016.39(Suppl 1). Performed By: #### 2 4321-2 ####[facility] LABIA [id number] [place] [address] [place] Potassium [Moles/Vol] 3.7 mmol/L Normal 3.7-5.1 [facility] Comment on above: Order Comment: Dora finch Type: BLOOD SPECIMENOrdering Facility: [facility] Address: [address] [place] [address] Performed By: #### 2 4321-2 ####[facility] [id number] [place] [address] [place] Sodium [Moles/Vol] 136 mmol/L Normal 136-144 [facility] Comment on above: Order Comment: Dora finch Type: BLOOD SPECIMENOrdering Facility: [facility] Address: [address] [place] [address] Performed By: #### 2 4321-2 ####[facility] LABCLIA [id number] [place] [address] [place] Urea nitrogen [Mass/Vol] 12 mg/dL Normal 7-21 [facility] Comment on above: Order Comment: Speci men Type: BLOOD SPECIMENOrdering Facility: [facility] Address: [address] [place] [address] Performed By: #### 2 4321-2 ####[facility] LABCLIA [id number] [place] [id number] [place] CASE MANAGEMon 12-17-2024 CASE MANAGEM Normal [facility] CBC W Auto Differential pane l (Bld)on 12-17-2024 Basophils (Bld) [#/Vol] 10*3/uL Normal <0.11 [facility] Comment on above: Order Comment: Speci men Type: BLOOD SPECIMENOrdering Facility: [facility] Address: [address] [place] [address] Performed By: #### 5 7021-8 ####[facility] LABCLIA [id number] [place] [address] [place] Basophils/100 WBC (Bld) 0.2 % Normal [facility] Comment on above: Order Comment: Speci men Type: BLOOD SPECIMENOrdering Facility: [facility] Address: [address] [place] [address] Performed By: #### 5 7021-8 ####[facility] LABCLIA [id number] [place] [id number] [place] Differential cell count method Nom (Bld) Auto Normal [facility] Comment on above: Order Comment: Speci men Type: BLOOD SPECIMENOrdering Facility: [facility] Address: [address] [place] [address] Performed By: #### 5 7021-8 ####[facility] LABCLIA [id number] [address], [facility]95 [place] Eosinophils (Bld) [#/Vol] 0.29 10*3/uL Normal <0.46 [facility] Comment on above: Order Comment: Speci men Type: BLOOD SPECIMENOrdering Facility: [facility] Address: [address] [place] [address] Performed By: #### 5 7021-8 ####[facility] LABCLIA [id number] [address], [place] [address] [place] Eosinophils/100 WBC (Bld) 3.3 % Normal [facility] Comment on above: Order Comment: Speci men Type: BLOOD SPECIMENOrdering Facility: [facility] Address: [address] [place] [address] Performed By: #### 5 7021-8 ####[facility] LABCLIA [id number] [address], [place] [address] [place] Erythrocyte distribution width (RBC) [Ratio] 21.2 % High 11.5-15.0 [facility] Comment on above: Order Comment: Speci men Type: BLOOD SPECIMENOrdering Facility: [facility] Address: [address] [place] [address] Performed By: #### 5 7021-8 ####[facility] LABCLIA [id number] [address], [place] [address] [place] Hematocrit (Bld) [Volume fraction] 24.6 % Low 36.0-46.0 [facility] Comment on above: Order Comment: Speci men Type: BLOOD SPECIMENOrdering Facility: [facility] Address: [address] [place] [address] Performed By: #### 5 7021-8 ####[facility] LABCLIA [id number] [address], [facility]95 [place] Hemoglobin (Bld) [Mass/Vol] 7.6 g/dL Low 11.5-15.5 [facility] Comment on above: Order Comment: Speci men Type: BLOOD SPECIMENOrdering Facility: [facility] Address: [address] [place] [address] Performed By: #### 5 7021-8 ####[facility] LABCLIA [id number] [place] [id number] [place] Immature granulocytes (Bld) [#/Vol] 0.04 10*3/uL Normal <0.10 [facility] Comment on above: Order Comment: Speci men Type: BLOOD SPECIMENOrdering Facility: [facility] Address: [address] [place] [address] Performed By: #### 5 7021-8 ####[facility] LABCLIA [id number] [place] [address] [place] Immature granulocytes/100 WBC (Bld) 0.5 % Normal [facility] Comment on above: Order Comment: Speci men Type: BLOOD SPECIMENOrdering Facility: [facility] Address: [address] [place] [address] Performed By: #### 5 7021-8 ####[facility] LABCLIA [id number] [place] [address] [place] Lymphocytes (Bld) [#/Vol] 1.04 10*3/uL Normal 1.00-4.00 [facility] Comment on above: Order Comment: Speci men Type: BLOOD SPECIMENOrdering Facility: [facility] Address: [address] [place] [address] Performed By: #### 5 7021-8 ####[facility] LABCLIA [id number] [place] [id number] [place] Lymphocytes/100 WBC (Bld) 11.7 % Normal [facility] Comment on above: Order Comment: Speci men Type: BLOOD SPECIMENOrdering Facility: [facility] Address: [address] [place] [address] Performed By: #### 5 7021-8 ####[facility] LABCLIA [id number] [place] [address] [place] MCH (RBC) [Entitic mass] 26.5 pg Normal 26.0-34.0 [facility] Comment on above: Order Comment: Speci men Type: BLOOD SPECIMENOrdering Facility: [facility] Address: [address] [place] [address] Performed By: #### 5 7021-8 ####[facility] LABIA [id number] [place] [address] [place] MCHC (RBC) [Mass/Vol] 30.9 g/dL Normal 30.5-36.0 [facility] Comment on above: Order Comment: Speci men Type: BLOOD SPECIMENOrdering Facility: [facility] Address: [address] [place] [address] Performed By: #### 5 7021-8 ####[facility] LABIA [id number] [place] [address] [place] MCV (RBC) [Entitic vol] 85.7 fL Normal 80.0-100.0 [facility] Comment on above: Order Comment: Speci men Type: BLOOD SPECIMENOrdering Facility: [facility] Address: [address] [place] [address] Performed By: #### 5 7021-8 ####[facility] LABIA [id number] [place] [address] [place] Monocytes (Bld) [#/Vol] 0.61 10*3/uL Normal <0.87 [facility] Comment on above: Order Comment: Speci men Type: BLOOD SPECIMENOrdering Facility: [facility] Address: [address] [place] [address] Performed By: #### 5 7021-8 ####[facility] LABCLIA [id number] [place] [address] [place] Monocytes/100 WBC (Bld) 6.9 % Normal [facility] Comment on above: Order Comment: Speci men Type: BLOOD SPECIMENOrdering Facility: [facility] Address: [address] [place] [address] Performed By: #### 5 7021-8 ####[facility] LABCLIA [id number] [place] [address] [place] Neutrophils (Bld) [#/Vol] 6.88 10*3/uL Normal 1.45-7.50 [facility] Comment on above: Order Comment: Speci men Type: BLOOD SPECIMENOrdering Facility: [facility] Address: [address] [place] [address] Performed By: #### 5 7021-8 ####[facility] LABCLIA [id number] [place] [address] [place] Neutrophils/100 WBC (Bld) 77.4 % Normal [facility] Comment on above: Order Comment: Speci men Type: BLOOD SPECIMENOrdering Facility: [facility] Address: [address] [place] [address] Performed By: #### 5 7021-8 ####[facility] LABCLIA [id number] [place] [address] [place] Nucleated RBC (Bld) [#/Vol] 10*3/uL Normal <0.01 [facility] Comment on above: Order Comment: Speci men Type: BLOOD SPECIMENOrdering Facility: [facility] Address: [address] [place] [address] Performed By: #### 5 7021-8 ####[facility] LABCLIA [id number] [place] [address] [place] Nucleated RBC/100 WBC (Bld) [Ratio] 0.0 /100 WBC Normal [facility] Comment on above: Order Comment: Speci men Type: BLOOD SPECIMENOrdering Facility: [facility] Address: [address] [place] [address] Performed By: #### 5 7021-8 ####[facility] LABCLIA [id number] [address] [place] [address] [place] Platelet mean volume (Bld) [Entitic vol] 9.5 fL Normal 9.0-12.7 [facility] Comment on above: Order Comment: Speci men Type: BLOOD SPECIMENOrdering Facility: [facility] Address: [address] [place] [address] Performed By: #### 5 7021-8 ####[facility] LABCLIA [id number] [address] [place] [address] [place] Platelets (Bld) [#/Vol] 245 10*3/uL Normal 150-400 [facility] Comment on above: Order Comment: Speci men Type: BLOOD SPECIMENOrdering Facility: [facility] Address: [address] [place] [address] Performed By: #### 5 7021-8 ####[facility] LABCLIA [id number] [address] [place] [address] [place] RBC (Bld) [#/Vol] 2.87 10*6/uL Low 3.90-5.20 [facility] Comment on above: Order Comment: Speci men Type: BLOOD SPECIMENOrdering Facility: [facility] Address: [address] [place] [address] Performed By: #### 5 7021-8 ####[facility] LABCLIA [id number] [address] [place] [address] [place] WBC (Bld) [#/Vol] 8.88 10*3/uL Normal 3.70-11.00 [facility] Comment on above: Order Comment: Speci men Type: BLOOD SPECIMENOrdering Facility: [facility] Address: [address] [place] [address] Performed By: #### 5 7021-8 ####[facility] LABCLIA [id number] [address] [place] [address] [place] CONSULT PROGon 12-17-2024 CONSULT PROG Normal [facility] CONSULT PROG Normal [facility] CRP SerPl-mCncon 12-17-2024 CRP [Mass/Vol] 10.3 mg/dL High <0.9 [facility] Comment on above: Order Comment: Speci men Type: BLOOD SPECIMENOrdering Facility: [facility] Address: [address] [place] [address] Performed By: #### 1 988-5 ####[facility] LABCLIA [id number] [place] [address] [place] Comprehensive metabolic 2000 panelon 12-17-2024 Albumin [Mass/Vol] 2.6 g/dL Low 3.9-4.9 [facility] Comment on above: Order Comment: Speci men Type: BLOOD SPECIMENOrdering Facility: [facility] Address: [address] [place] [address] Performed By: #### 2 4323-8, , 2776-06 ####[facility] LABCLIA [id number] [place] [address] [place] ALP [Catalytic activity/Vol] 80 U/L Normal 34-123 [facility] Comment on above: Order Comment: Speci men Type: BLOOD SPECIMENOrdering Facility: [facility] Address: [address] [place] [address] Performed By: #### 2 4323-8, , 2776-06 ####[facility] LABCLIA [id number] [address] [address] [place] ALT [Catalytic activity/Vol] 14 U/L Normal 7-38 [facility] Comment on above: Order Comment: Speci men Type: BLOOD SPECIMENOrdering Facility: [facility] Address: [address] [place], [place] [address] Performed By: #### 2 4323-8, 66531-5, 2776- ####[facility] LABCLIA [id number] [address] [place] [address] [place] Anion gap [Moles/Vol] 12 mmol/L Normal 8-15 [facility] Comment on above: Order Comment: Speci men Type: BLOOD SPECIMENOrdering Facility: [facility] Address: [address] [place] [address] Performed By: #### 2 4323-8, , 2776-06 ####[facility] LABCLIA [id number] [address], [facility]95 [place] AST [Catalytic activity/Vol] 7 U/L Low 13-35 [facility] Comment on above: Order Comment: Speci men Type: BLOOD SPECIMENOrdering Facility: [facility] Address: [address] [place] [address] Performed By: #### 2 4323-8, , 2776-06 ####[facility] LABCLIA [id number] [place] [address] [place] Bilirubin [Mass/Vol] 0.3 mg/dL Normal 0.2-1.3 [facility] Comment on above: Order Comment: Speci men Type: BLOOD SPECIMENOrdering Facility: [facility] Address: [address] [place] [address] Performed By: #### 2 4323-8, , 2776-06 ####[facility] LABCLIA [id number] [address], [facility]95 [place] Calcium [Mass/Vol] 8.5 mg/dL Normal 8.5-10.2 [facility] Comment on above: Order Comment: Speci men Type: BLOOD SPECIMENOrdering Facility: [facility] Address: [address] [place] [address] Performed By: #### 2 4323-8, , 2776-06 ####[facility] LABCLIA [id number] [address] [place] [address] [place] Chloride [Moles/Vol] 102 mmol/L Normal 98-107 [facility] Comment on above: Order Comment: Speci men Type: BLOOD SPECIMENOrdering Facility: [facility] Address: [address] [place], [place] [address] Performed By: #### 2 4323-8, 07681-5, 2776-06 ####[facility] LABCLIA [id number] [place] [address] [place] CO2 [Moles/Vol] 23 mmol/L Normal 22-30 [facility] Comment on above: Order Comment: Speci men Type: BLOOD SPECIMENOrdering Facility: [facility] Address: [address] [place] [address] Performed By: #### 2 4323-8, , 2776-06 ####[facility] LABIA [id number] [place] [address] [place] Creatinine [Mass/Vol] 0.58 mg/dL Normal 0.58-0.96 [facility] Comment on above: Order Comment: Speci men Type: BLOOD SPECIMENOrdering Facility: [facility] Address: [address] [place] [address] Performed By: #### 2 4323-8, 65964-2, 27712-25 ####[facility] LABIA [id number] [place] [address] [place] Creatinine and Glomerular filtration rate.predicted panel (S/P/Bld) 117 mL/min/1.73m??? Normal >=60 [facility] Comment on above: Order Comment: Speci men Type: BLOOD SPECIMENOrdering Facility: [facility] Address: [address] [place] [address] Result Comment: Zeny mated Glomerular Filtration Rate (eGFR) is calculated using the 2020 CKD-EPI creatinine equation. This equation utilizes serum creatinine, sex, and age as parameters. The creatinine assay has traceable calibration to isotope dilution-mass spectrometry. Refer to KDIGO guidelines for clinical interpretation. In patients with unstable renal function, e.g. those with acute kidney injury, the eGFR may not accurately reflect actual GFR. Performed By: #### 2 4323-8, , 2776-06 ####[facility] LABCLIA [id number] [facility] [address] [address] [place] Glucose [Mass/Vol] 131 mg/dL High 74-99 [facility] Comment on above: Order Comment: Dora finch Type: BLOOD SPECIMENOrdering Facility: [facility] Address: [address] [place] [address] Result Comment: The [place] [employer] (ADA) provides guidance for cutoff values for fasting glucose and random glucose. The ADA defines fasting as no caloric intake for at least 8 hours. Fasting plasma glucose results between 100 to 125 mg/dL indicate increased risk for diabetes (prediabetes).Fasting plasma glucose results greater than or equal to 126 mg/dL meet the criteria for diagnosis of diabetes. In the absence of unequivocal hyperglycemia, results should be confirmed by repeat testing. In a patient with classic symptoms of hyperglycemia or hyperglycemic crisis, random plasma glucose results greater than or equal to 200 mg/dL meet the criteria for diagnosis of diabetes.Reference: Standards of Medical Care in Diabetes 2016, [place] [employer]. Diabetes Care. 2016.39(Suppl 1). Performed By: #### 2 4323-8, , 2776-06 ####[facility] LABCLIA [id number] [facility] [address] [address] [place] Potassium [Moles/Vol] 2.9 mmol/L Low 3.7-5.1 [facility] Comment on above: Order Comment: Dora finch Type: BLOOD SPECIMENOrdering Facility: [facility] Address: [address] [place] [address] Performed By: #### 2 4323-8, , 2776-06 ####[facility] LABCLIA [id number] [facility] [address] [place] [address] [place] Protein [Mass/Vol] 5.5 g/dL Low 6.3-8.0 [facility] Comment on above: Order Comment: Speci men Type: BLOOD SPECIMENOrdering Facility: [facility] Address: [address] [place], [place] [address] Performed By: #### 2 4323-8, , 2776-06 ####[facility] LABCLIA [id number] [address] [address] [place] Sodium [Moles/Vol] 137 mmol/L Normal 136-144 [facility] Comment on above: Order Comment: Speci men Type: BLOOD SPECIMENOrdering Facility: [facility] Address: [address] [place], [place] [address] Performed By: #### 2 4323-8, , 2776-06 ####[facility] LABCLIA [id number] [place] [address] [place] Urea nitrogen [Mass/Vol] 11 mg/dL Normal 7-21 [facility] Comment on above: Order Comment: Speci men Type: BLOOD SPECIMENOrdering Facility: [facility] Address: [address] [place], [place] [address] Performed By: #### 2 4323-8, , 2776-06 ####[facility] LABIA [id number] [place] [address] [place] Magnesium SerPl-mCncon 12-17 Magnesium [Mass/Vol] 1.8 mg/dL Normal 1.7-2.3 [facility] Comment on above: Order Comment: Speci men Type: BLOOD SPECIMENOrdering Facility: [facility] Address: [address] [place], [place] [address] Performed By: #### 2 4323-8, , 2776-06 ####[facility] LABCLIA [id number] [address] [address] [place] Phosphate SerPl-mCncon 12-17 Phosphate [Mass/Vol] 3.1 mg/dL Normal 2.7-4.8 [facility] Comment on above: Order Comment: Speci men Type: BLOOD SPECIMENOrdering Facility: [facility] Address: [address] [place] [address] Performed By: #### 2 4323-8, 50110-2, 2777-1 ####[facility] LABCLIA [id number] [place] [address] [place] CBC W Auto Differential pane l (Bld)on 12-16-2024 Basophils (Bld) [#/Vol] 10*3/uL Normal <0.11 [facility] Comment on above: Order Comment: Speci men Type: BLOOD SPECIMENOrdering Facility: [facility] Address: [address] [place] [address] Performed By: #### 5 7021-8 ####[facility] LABCLIA [id number] [place] [address] [place] Basophils/100 WBC (Bld) 0.2 % Normal [facility] Comment on above: Order Comment: Speci men Type: BLOOD SPECIMENOrdering Facility: [facility] Address: [address] [place] [address] Performed By: #### 5 7021-8 ####[facility] LABCLIA [id number] [place] [address] [place] Differential cell count method Nom (Bld) Auto Normal [facility] Comment on above: Order Comment: Speci men Type: BLOOD SPECIMENOrdering Facility: [facility] Address: [address] [place] [address] Performed By: #### 5 7021-8 ####[facility] LABCLIA [id number] [place] [address] [place] Eosinophils (Bld) [#/Vol] 0.32 10*3/uL Normal <0.46 [facility] Comment on above: Order Comment: Speci men Type: BLOOD SPECIMENOrdering Facility: [facility] Address: [address] [place] [address] Performed By: #### 5 7021-8 ####[facility] LABCLIA [id number] [place] [address] [place] Eosinophils/100 WBC (Bld) 3.7 % Normal [facility] Comment on above: Order Comment: Speci men Type: BLOOD SPECIMENOrdering Facility: [facility] Address: [address] [place] [address] Performed By: #### 5 7021-8 ####[facility] LABCLIA [id number] [place] [address] [place] Erythrocyte distribution width (RBC) [Ratio] 21.1 % High 11.5-15.0 [facility] Comment on above: Order Comment: Speci men Type: BLOOD SPECIMENOrdering Facility: [facility] Address: [address] [place] [address] Performed By: #### 5 7021-8 ####[facility] LABIA [id number] [place] [address] [place] Hematocrit (Bld) [Volume fraction] 24.0 % Low 36.0-46.0 [facility] Comment on above: Order Comment: Speci men Type: BLOOD SPECIMENOrdering Facility: [facility] Address: [address] [place] [address] Performed By: #### 5 7021-8 ####[facility] LABCLIA [id number] [place] [address] [place] Hemoglobin (Bld) [Mass/Vol] 7.4 g/dL Low 11.5-15.5 [facility] Comment on above: Order Comment: Speci men Type: BLOOD SPECIMENOrdering Facility: [facility] Address: [address] [place] [address] Performed By: #### 5 7021-8 ####[facility] LABIA [id number] [place] [address] [place] Immature granulocytes (Bld) [#/Vol] 0.04 10*3/uL Normal <0.10 [facility] Comment on above: Order Comment: Speci men Type: BLOOD SPECIMENOrdering Facility: [facility] Address: [address] [place] [address] Performed By: #### 5 7021-8 ####[facility] LABCLIA [id number] [place] [address] [place] Immature granulocytes/100 WBC (Bld) 0.5 % Normal [facility] Comment on above: Order Comment: Speci men Type: BLOOD SPECIMENOrdering Facility: [facility] Address: [address] [place] [address] Performed By: #### 5 7021-8 ####[facility] LABCLIA [id number] [place] [address] [place] Lymphocytes (Bld) [#/Vol] 1.03 10*3/uL Normal 1.00-4.00 [facility] Comment on above: Order Comment: Speci men Type: BLOOD SPECIMENOrdering Facility: [facility] Address: [address] [place] [address] Performed By: #### 5 7021-8 ####[facility] LABCLIA [id number] [place] [address] [place] Lymphocytes/100 WBC (Bld) 11.9 % Normal [facility] Comment on above: Order Comment: Speci men Type: BLOOD SPECIMENOrdering Facility: [facility] Address: [address] [place] [address] Performed By: #### 5 7021-8 ####[facility] LABCLIA [id number] [place] [address] [place] MCH (RBC) [Entitic mass] 26.9 pg Normal 26.0-34.0 [facility] Comment on above: Order Comment: Speci men Type: BLOOD SPECIMENOrdering Facility: [facility] Address: [address] [place] [address] Performed By: #### 5 7021-8 ####[facility] LABCLIA [id number] [address], [place] [address] [place] MCHC (RBC) [Mass/Vol] 30.8 g/dL Normal 30.5-36.0 [facility] Comment on above: Order Comment: Speci men Type: BLOOD SPECIMENOrdering Facility: [facility] Address: [address] [place] [address] Performed By: #### 5 7021-8 ####[facility] LABIA [id number] [address], [place] [address] [place] MCV (RBC) [Entitic vol] 87.3 fL Normal 80.0-100.0 [facility] Comment on above: Order Comment: Speci men Type: BLOOD SPECIMENOrdering Facility: [facility] Address: [address] [place] [address] Performed By: #### 5 7021-8 ####[facility] LABIA [id number] [address], [place] [address] [place] Monocytes (Bld) [#/Vol] 0.59 10*3/uL Normal <0.87 [facility] Comment on above: Order Comment: Speci men Type: BLOOD SPECIMENOrdering Facility: [facility] Address: [address] [place] [address] Performed By: #### 5 7021-8 ####[facility] LABCLIA [id number] [address], [facility]95 [place] Monocytes/100 WBC (Bld) 6.8 % Normal [facility] Comment on above: Order Comment: Speci men Type: BLOOD SPECIMENOrdering Facility: [facility] Address: [address] [place] [address] Performed By: #### 5 7021-8 ####[facility] LABIA [id number] [address], [facility]95 [place] Neutrophils (Bld) [#/Vol] 6.65 10*3/uL Normal 1.45-7.50 [facility] Comment on above: Order Comment: Speci men Type: BLOOD SPECIMENOrdering Facility: [facility] Address: [address] [place] [address] Performed By: #### 5 7021-8 ####[facility] LABCLIA [id number] [place] [address] [place] Neutrophils/100 WBC (Bld) 76.9 % Normal [facility] Comment on above: Order Comment: Speci men Type: BLOOD SPECIMENOrdering Facility: [facility] Address: [address] [place] [address] Performed By: #### 5 7021-8 ####[facility] LABCLIA [id number] [place] [address] [place] Nucleated RBC (Bld) [#/Vol] 10*3/uL Normal <0.01 [facility] Comment on above: Order Comment: Speci men Type: BLOOD SPECIMENOrdering Facility: [facility] Address: [address] [place] [address] Performed By: #### 5 7021-8 ####[facility] LABCLIA [id number] [place] [address] [place] Nucleated RBC/100 WBC (Bld) [Ratio] 0.0 /100 WBC Normal [facility] Comment on above: Order Comment: Speci men Type: BLOOD SPECIMENOrdering Facility: [facility] Address: [address] [place] [address] Performed By: #### 5 7021-8 ####[facility] LABCLIA [id number] [place] [address] [place] Platelet mean volume (Bld) [Entitic vol] 10.0 fL Normal 9.0-12.7 [facility] Comment on above: Order Comment: Speci men Type: BLOOD SPECIMENOrdering Facility: [facility] Address: [address] [place] [address] Performed By: #### 5 7021-8 ####[facility] LABCLIA [id number] [place] [id number] [place] Platelets (Bld) [#/Vol] 225 10*3/uL Normal 150-400 [facility] Comment on above: Order Comment: Speci men Type: BLOOD SPECIMENOrdering Facility: [facility] Address: [address] [place] [address] Performed By: #### 5 7021-8 ####[facility] LABCLIA [id number] [place] [address] [place] RBC (Bld) [#/Vol] 2.75 10*6/uL Low 3.90-5.20 [facility] Comment on above: Order Comment: Speci men Type: BLOOD SPECIMENOrdering Facility: [facility] Address: [address] [place] [address] Performed By: #### 5 7021-8 ####[facility] LABIA [id number] [place] [address] [place] WBC (Bld) [#/Vol] 8.65 10*3/uL Normal 3.70-11.00 [facility] Comment on above: Order Comment: Speci men Type: BLOOD SPECIMENOrdering Facility: [facility] Address: [address] [place] [address] Performed By: #### 5 7021-8 ####[facility] LABIA [id number] [place] [id number] [place] Comprehensive metabolic 2000 panelon 12-16-2024 Albumin [Mass/Vol] 2.8 g/dL Low 3.9-4.9 [facility] Comment on above: Order Comment: Speci men Type: BLOOD SPECIMENOrdering Facility: [facility] Address: [address] [place] [address] Performed By: #### 2 4323-8, 72068-5, 2776-06 ####[facility] LABCLIA [id number] [address] [address] [place] ALP [Catalytic activity/Vol] 84 U/L Normal 34-123 [facility] Comment on above: Order Comment: Speci men Type: BLOOD SPECIMENOrdering Facility: [facility] Address: [address] [place] [address] Performed By: #### 2 4323-8, , 2776-06 ####[facility] LABCLIA [id number] [place] [address] [place] ALT [Catalytic activity/Vol] 16 U/L Normal 7-38 [facility] Comment on above: Order Comment: Speci men Type: BLOOD SPECIMENOrdering Facility: [facility] Address: [address] [place] [address] Performed By: #### 2 432-8, , 2776-06 ####[facility] LABCLIA [id number] [place] [id number] [place] Anion gap [Moles/Vol] 12 mmol/L Normal 8-15 [facility] Comment on above: Order Comment: Speci men Type: BLOOD SPECIMENOrdering Facility: [facility] Address: [address] [place] [address] Performed By: #### 2 4323-8, , 2776-06 ####[facility] LABCLIA [id number] [address] [address] [place] AST [Catalytic activity/Vol] 11 U/L Low 13-35 [facility] Comment on above: Order Comment: Speci men Type: BLOOD SPECIMENOrdering Facility: [facility] Address: [address] [place], [place] [address] Performed By: #### 2 4323-8, 76136-0, 2776- ####[facility] LABCLIA [id number] [address] [place] [address] [place] Bilirubin [Mass/Vol] 0.3 mg/dL Normal 0.2-1.3 [facility] Comment on above: Order Comment: Speci men Type: BLOOD SPECIMENOrdering Facility: [facility] Address: [address] [place], [place] [address] Performed By: #### 2 4323-8, , 2776-06 ####[facility] LABCLIA [id number] [address] [place] [address] [place] Calcium [Mass/Vol] 8.6 mg/dL Normal 8.5-10.2 [facility] Comment on above: Order Comment: Speci men Type: BLOOD SPECIMENOrdering Facility: [facility] Address: [address] [place] [address] Performed By: #### 2 432-8, , 2776-06 ####[facility] LABCLIA [id number] [address] [place] [address] [place] Chloride [Moles/Vol] 101 mmol/L Normal 98-107 [facility] Comment on above: Order Comment: Speci men Type: BLOOD SPECIMENOrdering Facility: [facility] Address: [address] [place], [place] [address] Performed By: #### 2 4323-8, , 2776-06 ####[facility] LABCLIA [id number] [address] [place] [address] [place] CO2 [Moles/Vol] 23 mmol/L Normal 22-30 [facility] Comment on above: Order Comment: Speci men Type: BLOOD SPECIMENOrdering Facility: [facility] Address: [address] [place], [place] [address] Performed By: #### 2 4323-8, , 2776-06 ####[facility] LABCLIA [id number] [address] [place] [address] [place] Creatinine [Mass/Vol] 0.64 mg/dL Normal 0.58-0.96 [facility] Comment on above: Order Comment: Dora finch Type: BLOOD SPECIMENOrdering Facility: [facility] Address: [address] [place] [address] Performed By: #### 2 4323-8, 52983-9, 2776-06 ####[facility] LABIA [id number] [address] Creatinine and Glomerular filtration rate.predicted panel (S/P/Bld) 114 mL/min/1.73m??? Normal >=60 [facility] Comment on above: Order Comment: Dora finch Type: BLOOD SPECIMENOrdering Facility: [facility] Address: [address] [place] [address] Result Comment: Zeny mated Glomerular Filtration Rate (eGFR) is calculated using the 2020 CKD-EPI creatinine equation. This equation utilizes serum creatinine, sex, and age as parameters. The creatinine assay has traceable calibration to isotope dilution-mass spectrometry. Refer to KDIGO guidelines for clinical interpretation. In patients with unstable renal function, e.g. those with acute kidney injury, the eGFR may not accurately reflect actual GFR. Performed By: #### 2 4323-8, , 2776-06 ####[facility] LABIA [id number] [place] [id number] [place] Glucose [Mass/Vol] 140 mg/dL High 74-99 [facility] Comment on above: Order Comment: Dora finch Type: BLOOD SPECIMENOrdering Facility: [facility] Address: [address] [place] [address] Result Comment: The [place] [employer] (ADA) provides guidance for cutoff values for fasting glucose and random glucose. The ADA defines fasting as no caloric intake for at least 8 hours. Fasting plasma glucose results between 100 to 125 mg/dL indicate increased risk for diabetes (prediabetes).Fasting plasma glucose results greater than or equal to 126 mg/dL meet the criteria for diagnosis of diabetes. In the absence of unequivocal hyperglycemia, results should be confirmed by repeat testing. In a patient with classic symptoms of hyperglycemia or hyperglycemic crisis, random plasma glucose results greater than or equal to 200 mg/dL meet the criteria for diagnosis of diabetes.Reference: Standards of Medical Care in Diabetes 2016, [place] [employer]. Diabetes Care. 2016.39(Suppl 1). Performed By: #### 2 4323-8, , 2776-06 ####[facility] LABCLIA [id number] [address] [address] [place] Potassium [Moles/Vol] 2.8 mmol/L Low 3.7-5.1 [facility] Comment on above: Order Comment: Speci men Type: BLOOD SPECIMENOrdering Facility: [facility] Address: [address] [place] [address] Performed By: #### 2 8, , 2776-06 ####[facility] LABCLIA [id number] [place] [id number] [place] Protein [Mass/Vol] 5.7 g/dL Low 6.3-8.0 [facility] Comment on above: Order Comment: Speci men Type: BLOOD SPECIMENOrdering Facility: [facility] Address: [address] [place] [address] Performed By: #### 2 8, , 2776-06 ####[facility] LABCLIA [id number] [address] [address] [place] Sodium [Moles/Vol] 136 mmol/L Normal 136-144 [facility] Comment on above: Order Comment: Speci men Type: BLOOD SPECIMENOrdering Facility: [facility] Address: [address] [place] [address] Performed By: #### 2 432-8, , 2776-06 ####[facility] LABCLIA [id number] [address] [address] [place] Urea nitrogen [Mass/Vol] 11 mg/dL Normal 7-21 [facility] Comment on above: Order Comment: Speci men Type: BLOOD SPECIMENOrdering Facility: [facility] Address: [address] [place], [place] [address] Performed By: #### 2 4323-8, , 2776-06 ####[facility] LABCLIA [id number] [place] [address] [place] Magnesium SerPl-mCncon 12-16 Magnesium [Mass/Vol] 1.9 mg/dL Normal 1.7-2.3 [facility] Comment on above: Order Comment: Speci men Type: BLOOD SPECIMENOrdering Facility: [facility] Address: [address] [place] [address] Performed By: #### 2 4323-8, , 2776-06 ####[facility] LABCLIA [id number] [place] [address] [place] Phosphate SerPl-mCncon 12-16 Phosphate [Mass/Vol] 2.4 mg/dL Low 2.7-4.8 [facility] Comment on above: Order Comment: Speci men Type: BLOOD SPECIMENOrdering Facility: [facility] Address: [address] [place] [address] Performed By: #### 2 4323-8, , 2776-06 ####[facility] LABCLIA [id number] [place] [address] [place] Vancomycin [place] SerPl-mCncon 12-16-2024 Vancomycin random [Mass/Vol] 11.6 ug/mL Normal 10.0-20.0 [facility] Comment on above: Order Comment: Speci men Type: BLOOD SPECIMENOrdering Facility: [facility] Address: [address] [place] [address] Result Comment: Refe rence ranges and high/low indicator flags are provided as general guidelines only. The treating physician must determine appropriate target levels/dosing based on the specific clinical situation. Performed By: #### 4 091-5 ####[facility] LABCLIA [id number] [facility] [address], [facility]95 [place] CBC W Auto Differential pane l (Bld)on 12-15-2024 Basophils (Bld) [#/Vol] 0.03 10*3/uL Normal <0.11 [facility] Comment on above: Order Comment: Speci men Type: BLOOD SPECIMENOrdering Facility: [facility] Address: [address] [place] [address] Performed By: #### 5 7021-8 ####[facility] LABCLIA [id number] [address], [facility]95 [place] Basophils/100 WBC (Bld) 0.3 % Normal [facility] Comment on above: Order Comment: Speci men Type: BLOOD SPECIMENOrdering Facility: [facility] Address: [address] [place] [address] Performed By: #### 5 7021-8 ####[facility] LABCLIA [id number] [address], [place] [address] [place] Differential cell count method Nom (Bld) Auto Normal [facility] Comment on above: Order Comment: Speci men Type: BLOOD SPECIMENOrdering Facility: [facility] Address: [address] [place] [address] Performed By: #### 5 7021-8 ####[facility] LABCLIA [id number] [address], [facility]95 [place] Eosinophils (Bld) [#/Vol] 0.38 10*3/uL Normal <0.46 [facility] Comment on above: Order Comment: Speci men Type: BLOOD SPECIMENOrdering Facility: [facility] Address: [address] [place] [address] Performed By: #### 5 7021-8 ####[facility] LABCLIA [id number] [address], [facility]95 [place] Eosinophils/100 WBC (Bld) 3.4 % Normal [facility] Comment on above: Order Comment: Speci men Type: BLOOD SPECIMENOrdering Facility: [facility] Address: [address] [place] [address] Performed By: #### 5 7021-8 ####[facility] LABIA [id number] [place] [address] [place] Erythrocyte distribution width (RBC) [Ratio] 21.5 % High 11.5-15.0 [facility] Comment on above: Order Comment: Speci men Type: BLOOD SPECIMENOrdering Facility: [facility] Address: [address] [place] [address] Performed By: #### 5 7021-8 ####[facility] LABIA [id number] [place] [address] [place] Hematocrit (Bld) [Volume fraction] 25.3 % Low 36.0-46.0 [facility] Comment on above: Order Comment: Speci men Type: BLOOD SPECIMENOrdering Facility: [facility] Address: [address] [place] [address] Performed By: #### 5 7021-8 ####[facility] LABIA [id number] [place] [address] [place] Hemoglobin (Bld) [Mass/Vol] 7.6 g/dL Low 11.5-15.5 [facility] Comment on above: Order Comment: Speci men Type: BLOOD SPECIMENOrdering Facility: [facility] Address: [address] [place] [address] Performed By: #### 5 7021-8 ####[facility] LABIA [id number] [place] [address] [place] Immature granulocytes (Bld) [#/Vol] 0.08 10*3/uL Normal <0.10 [facility] Comment on above: Order Comment: Speci men Type: BLOOD SPECIMENOrdering Facility: [facility] Address: [address] [place] [address] Performed By: #### 5 7021-8 ####[facility] LABIA [id number] [place] [address] [place] Immature granulocytes/100 WBC (Bld) 0.7 % Normal [facility] Comment on above: Order Comment: Speci men Type: BLOOD SPECIMENOrdering Facility: [facility] Address: [address] [place] [address] Performed By: #### 5 7021-8 ####[facility] LABIA [id number] [place] [address] [place] Lymphocytes (Bld) [#/Vol] 1.39 10*3/uL Normal 1.00-4.00 [facility] Comment on above: Order Comment: Speci men Type: BLOOD SPECIMENOrdering Facility: [facility] Address: [address] [place] [address] Performed By: #### 5 7021-8 ####[facility] LABIA [id number] [place] [address] [place] Lymphocytes/100 WBC (Bld) 12.5 % Normal [facility] Comment on above: Order Comment: Speci men Type: BLOOD SPECIMENOrdering Facility: [facility] Address: [address] [place] [address] Performed By: #### 5 7021-8 ####[facility] LABIA [id number] [place] [address] [place] MCH (RBC) [Entitic mass] 26.4 pg Normal 26.0-34.0 [facility] Comment on above: Order Comment: Speci men Type: BLOOD SPECIMENOrdering Facility: [facility] Address: [address] [place] [address] Performed By: #### 5 7021-8 ####[facility] LABIA [id number] [place] [address] [place] MCHC (RBC) [Mass/Vol] 30.0 g/dL Low 30.5-36.0 [facility] Comment on above: Order Comment: Speci men Type: BLOOD SPECIMENOrdering Facility: [facility] Address: [address] [place] [address] Performed By: #### 5 7021-8 ####[facility] LABCLIA [id number] [place] [address] [place] MCV (RBC) [Entitic vol] 87.8 fL Normal 80.0-100.0 [facility] Comment on above: Order Comment: Speci men Type: BLOOD SPECIMENOrdering Facility: [facility] Address: [address] [place] [address] Performed By: #### 5 7021-8 ####[facility] LABIA [id number] [place] [address] [place] Monocytes (Bld) [#/Vol] 0.82 10*3/uL Normal <0.87 [facility] Comment on above: Order Comment: Speci men Type: BLOOD SPECIMENOrdering Facility: [facility] Address: [address] [place] [address] Performed By: #### 5 7021-8 ####[facility] LABIA [id number] [place] [address] [place] Monocytes/100 WBC (Bld) 7.4 % Normal [facility] Comment on above: Order Comment: Speci men Type: BLOOD SPECIMENOrdering Facility: [facility] Address: [address] [place] [address] Performed By: #### 5 7021-8 ####[facility] LABIA [id number] [place] [address] [place] Neutrophils (Bld) [#/Vol] 8.45 10*3/uL High 1.45-7.50 [facility] Comment on above: Order Comment: Speci men Type: BLOOD SPECIMENOrdering Facility: [facility] Address: [address] [place] [address] Performed By: #### 5 7021-8 ####[facility] LABCLIA [id number] [place] [address] [place] Neutrophils/100 WBC (Bld) 75.7 % Normal [facility] Comment on above: Order Comment: Speci men Type: BLOOD SPECIMENOrdering Facility: [facility] Address: [address] [place] [address] Performed By: #### 5 7021-8 ####[facility] LABCLIA [id number] [place] [address] [place] Nucleated RBC (Bld) [#/Vol] 10*3/uL Normal <0.01 [facility] Comment on above: Order Comment: Speci men Type: BLOOD SPECIMENOrdering Facility: [facility] Address: [address] [place] [address] Performed By: #### 5 7021-8 ####[facility] LABIA [id number] [place] [address] [place] Nucleated RBC/100 WBC (Bld) [Ratio] 0.0 /100 WBC Normal [facility] Comment on above: Order Comment: Speci men Type: BLOOD SPECIMENOrdering Facility: [facility] Address: [address] [place] [address] Performed By: #### 5 7021-8 ####[facility] LABIA [id number] [place] [address] [place] Platelet mean volume (Bld) [Entitic vol] 10.1 fL Normal 9.0-12.7 [facility] Comment on above: Order Comment: Speci men Type: BLOOD SPECIMENOrdering Facility: [facility] Address: [address] [place] [address] Performed By: #### 5 7021-8 ####[facility] LABIA [id number] [place] [address] [place] Platelets (Bld) [#/Vol] 209 10*3/uL Normal 150-400 [facility] Comment on above: Order Comment: Speci men Type: BLOOD SPECIMENOrdering Facility: [facility] Address: [address] [place] [address] Performed By: #### 5 7021-8 ####[facility] LABCLIA [id number] [place] [address] [place] RBC (Bld) [#/Vol] 2.88 10*6/uL Low 3.90-5.20 [facility] Comment on above: Order Comment: Speci men Type: BLOOD SPECIMENOrdering Facility: [facility] Address: [address] [place] [address] Performed By: #### 5 7021-8 ####[facility] LABCLIA [id number] [place] [address] [place] WBC (Bld) [#/Vol] 11.15 10*3/uL High 3.70-11.00 [facility] Comment on above: Order Comment: Speci men Type: BLOOD SPECIMENOrdering Facility: [facility] Address: [address] [place] [address] Performed By: #### 5 7021-8 ####[facility] LABIA [id number] [place] [address] [place] CBC panel Auto (Bld)on 12-15 Erythrocyte distribution width (RBC) [Ratio] 21.4 % High 11.5-15.0 [facility] Comment on above: Order Comment: Speci men Type: BLOOD SPECIMENOrdering Facility: [facility] Address: [address] [place] [address] Performed By: #### 5 8410-2 ####[facility] LABCLIA [id number] [place] [address] [place] Hematocrit (Bld) [Volume fraction] 25.5 % Low 36.0-46.0 [facility] Comment on above: Order Comment: Speci men Type: BLOOD SPECIMENOrdering Facility: [facility] Address: [address] [place] [address] Performed By: #### 5 8410-2 ####[facility] LABIA [id number] [place] [address] [place] Hemoglobin (Bld) [Mass/Vol] 7.7 g/dL Low 11.5-15.5 [facility] Comment on above: Order Comment: Speci men Type: BLOOD SPECIMENOrdering Facility: [facility] Address: [address] [place] [address] Performed By: #### 5 8410-2 ####[facility] [id number] [place] [address] [place] MCH (RBC) [Entitic mass] 26.6 pg Normal 26.0-34.0 [facility] Comment on above: Order Comment: Speci men Type: BLOOD SPECIMENOrdering Facility: [facility] Address: [address] [place] [address] Performed By: #### 5 8410-2 ####[facility] [id number] [place] [address] [place] MCHC (RBC) [Mass/Vol] 30.2 g/dL Low 30.5-36.0 [facility] Comment on above: Order Comment: Speci men Type: BLOOD SPECIMENOrdering Facility: [facility] Address: [address] [place] [address] Performed By: #### 5 8410-2 ####[facility] [id number] [place] [address] [place] MCV (RBC) [Entitic vol] 87.9 fL Normal 80.0-100.0 [facility] Comment on above: Order Comment: Speci men Type: BLOOD SPECIMENOrdering Facility: [facility] Address: [address] [place] [address] Performed By: #### 5 8410-2 ####[facility] LABCLIA [id number] [facility] [address], [facility]95 [place] Nucleated RBC (Bld) [#/Vol] 10*3/uL Normal <0.01 [facility] Comment on above: Order Comment: Speci men Type: BLOOD SPECIMENOrdering Facility: [facility] Address: [address] [place] [address] Performed By: #### 5 8410-2 ####[facility] LABCLIA [id number] [address], [facility]95 [place] Platelet mean volume (Bld) [Entitic vol] 9.6 fL Normal 9.0-12.7 [facility] Comment on above: Order Comment: Speci men Type: BLOOD SPECIMENOrdering Facility: [facility] Address: [address] [place] [address] Performed By: #### 5 8410-2 ####[facility] LABIA [id number] [address], [place] [address] [place] Platelets (Bld) [#/Vol] 212 10*3/uL Normal 150-400 [facility] Comment on above: Order Comment: Speci men Type: BLOOD SPECIMENOrdering Facility: [facility] Address: [address] [place] [address] Performed By: #### 5 8410-2 ####[facility] LABCLIA [id number] [address], [facility]95 [place] RBC (Bld) [#/Vol] 2.90 10*6/uL Low 3.90-5.20 [facility] Comment on above: Order Comment: Speci men Type: BLOOD SPECIMENOrdering Facility: [facility] Address: [address] [place] [address] Performed By: #### 5 8410-2 ####[facility] LABIA [id number] [facility] [address] [place] WBC (Bld) [#/Vol] 11.25 10*3/uL High 3.70-11.00 [facility] Comment on above: Order Comment: Speci men Type: BLOOD SPECIMENOrdering Facility: [facility] Address: [address] [place] [address] Performed By: #### 5 8410-2 ####[facility] LABCLIA [id number] [place] [address] [place] CRP SerPl-ncon 12-15-2024 CRP [Mass/Vol] 26.8 mg/dL High <0.9 [facility] Comment on above: Order Comment: Speci men Type: BLOOD SPECIMENOrdering Facility: [facility] Address: [address] [place] [address] Performed By: #### 1 9123-9, 53899-8, 1987-10, 2776-06 ####[facility] LABCLIA [id number] [place] [address] [place] Comprehensive metabolic 2000 panelon 12-15-2024 Albumin [Mass/Vol] 2.9 g/dL Low 3.9-4.9 [facility] Comment on above: Order Comment: Speci men Type: BLOOD SPECIMENOrdering Facility: [facility] Address: [address] [place] [address] Performed By: #### 1 9123-9, , 1987-10, 2776-06 ####[facility] LABCLIA [id number] [place] [id number] [place] ALP [Catalytic activity/Vol] 95 U/L Normal 34-123 [facility] Comment on above: Order Comment: Speci men Type: BLOOD SPECIMENOrdering Facility: [facility] Address: [address] [place] [address] Performed By: #### 1 9123-9, 29105-9, 1987-10, 2776-06 ####[facility] LABCLIA [id number] [address] [address] [place] ALT [Catalytic activity/Vol] 19 U/L Normal 7-38 [facility] Comment on above: Order Comment: Speci men Type: BLOOD SPECIMENOrdering Facility: [facility] Address: [address] [place] [address] Performed By: #### 1 9123-9, , 1987-10, 2776-06 ####[facility] LABCLIA [id number] [address] [address] [place] Anion gap [Moles/Vol] 11 mmol/L Normal 8-15 [facility] Comment on above: Order Comment: Speci men Type: BLOOD SPECIMENOrdering Facility: [facility] Address: [address] [place] [address] Performed By: #### 1 9123-9, , 1987-10, 2776-06 ####[facility] LABIA [id number] [place] [address] [place] AST [Catalytic activity/Vol] 11 U/L Low 13-35 [facility] Comment on above: Order Comment: Speci men Type: BLOOD SPECIMENOrdering Facility: [facility] Address: [address] [place] [address] Performed By: #### 1 9123-9, , 1987-10, 2776-06 ####[facility] LABCLIA [id number] [place] [id number] [place] Bilirubin [Mass/Vol] 0.5 mg/dL Normal 0.2-1.3 [facility] Comment on above: Order Comment: Speci men Type: BLOOD SPECIMENOrdering Facility: [facility] Address: [address] [place] [address] Performed By: #### 1 9123-9, , 1987-10, 2776-06 ####[facility] LABCLIA [id number] [address] [address] [place] Calcium [Mass/Vol] 8.6 mg/dL Normal 8.5-10.2 [facility] Comment on above: Order Comment: Speci men Type: BLOOD SPECIMENOrdering Facility: [facility] Address: [address] [place] [address] Performed By: #### 1 9123-9, , 1987-10, 2776-06 ####[facility] LABCLIA [id number] [place] [address] [place] Chloride [Moles/Vol] 100 mmol/L Normal 98-107 [facility] Comment on above: Order Comment: Speci men Type: BLOOD SPECIMENOrdering Facility: [facility] Address: [address] [place] [address] Performed By: #### 1 91239, , 1987-10, 2776-06 ####[facility] LABCLIA [id number] [place] [id number] [place] CO2 [Moles/Vol] 23 mmol/L Normal 22-30 [facility] Comment on above: Order Comment: Speci men Type: BLOOD SPECIMENOrdering Facility: [facility] Address: [address] [place] [address] Performed By: #### 1 239, , 1987-10, 2776-06 ####[facility] LABCLIA [id number] [address] [address] [place] Creatinine [Mass/Vol] 0.75 mg/dL Normal 0.58-0.96 [facility] Comment on above: Order Comment: Speci men Type: BLOOD SPECIMENOrdering Facility: [facility] Address: [address] [place] [address] Performed By: #### 1 9123-9, , 1987-10, 2776-06 ####[facility] LABCLIA [id number] [place] [address] [place] Creatinine and Glomerular filtration rate.predicted panel (S/P/Bld) 103 mL/min/1.73m??? Normal >=60 [facility] Comment on above: Order Comment: Dora finch Type: BLOOD SPECIMENOrdering Facility: [facility] Address: [address] [place] [address] Result Comment: Zeny mated Glomerular Filtration Rate (eGFR) is calculated using the 2020 CKD-EPI creatinine equation. This equation utilizes serum creatinine, sex, and age as parameters. The creatinine assay has traceable calibration to isotope dilution-mass spectrometry. Refer to KDIGO guidelines for clinical interpretation. In patients with unstable renal function, e.g. those with acute kidney injury, the eGFR may not accurately reflect actual GFR. Performed By: #### 1 9123-9, 36881-9, 2776-06 ####[facility] LABCLIA [id number] [place] [address] [place] Glucose [Mass/Vol] 103 mg/dL High 74-99 [facility] Comment on above: Order Comment: Dora finch Type: BLOOD SPECIMENOrdering Facility: [facility] Address: [address] [place] [address] Result Comment: The [place] [employer] (ADA) provides guidance for cutoff values for fasting glucose and random glucose. The ADA defines fasting as no caloric intake for at least 8 hours. Fasting plasma glucose results between 100 to 125 mg/dL indicate increased risk for diabetes (prediabetes).Fasting plasma glucose results greater than or equal to 126 mg/dL meet the criteria for diagnosis of diabetes. In the absence of unequivocal hyperglycemia, results should be confirmed by repeat testing. In a patient with classic symptoms of hyperglycemia or hyperglycemic crisis, random plasma glucose results greater than or equal to 200 mg/dL meet the criteria for diagnosis of diabetes.Reference: Standards of Medical Care in Diabetes 2016, [place] [employer]. Diabetes Care. 2016.39(Suppl 1). Performed By: #### 1 9123-9, 87787-7, 2776-06 ####[facility] LABCLIA [id number] [address] [address] [place] Potassium [Moles/Vol] 3.0 mmol/L Low 3.7-5.1 [facility] Comment on above: Order Comment: Speci men Type: BLOOD SPECIMENOrdering Facility: [facility] Address: [address] [place] [address] Performed By: #### 1 9123-9, , 1987-10, 2776-06 ####[facility] LABCLIA [id number] [facility] [address] [place] [address] [place] Protein [Mass/Vol] 6.0 g/dL Low 6.3-8.0 [facility] Comment on above: Order Comment: Speci men Type: BLOOD SPECIMENOrdering Facility: [facility] Address: [address] [place] [address] Performed By: #### 1 91239, , 1987-10, 2776-06 ####[facility] LABCLIA [id number] [facility] [address], [facility]95 [place] Sodium [Moles/Vol] 134 mmol/L Low 136-144 [facility] Comment on above: Order Comment: Speci men Type: BLOOD SPECIMENOrdering Facility: [facility] Address: [address] [place] [address] Performed By: #### 1 91239, , 1987-10, 2776-06 ####[facility] LABCLIA [id number] [facility] [address] [place] [address] [place] Urea nitrogen [Mass/Vol] 11 mg/dL Normal 7-21 [facility] Comment on above: Order Comment: Speci men Type: BLOOD SPECIMENOrdering Facility: [facility] Address: [address] [place] [address] Performed By: #### 1 9123-9, , 1987-10, 2776-06 ####[facility] LABCLIA [id number] [facility] [address] [place] [address] [place] Magnesium SerPl-mCncon 12-15 Magnesium [Mass/Vol] 1.9 mg/dL Normal 1.7-2.3 [facility] Comment on above: Order Comment: Speci men Type: BLOOD SPECIMENOrdering Facility: [facility] Address: [address] [place] [address] Performed By: #### 1 9123-9, 39017-6, 1987-10, 2776-06 ####[facility] LABCLIA [id number] [place] [id number] [place] Phosphate SerPl-mCncon 12-15 Phosphate [Mass/Vol] 2.8 mg/dL Normal 2.7-4.8 [facility] Comment on above: Order Comment: Speci men Type: BLOOD SPECIMENOrdering Facility: [facility] Address: [address] [place] [address] Performed By: #### 1 9123-9, 85703-9, 1987-10, 2776-06 ####[facility] LABIA [id number] [place] [id number] [place] CASE MANAGEMon 12-14-2024 CASE MANAGEM Normal [facility] CBC W Auto Differential pane l (Bld)on 12-14-2024 Basophils (Bld) [#/Vol] 0.05 10*3/uL Normal <0.11 [facility] Comment on above: Order Comment: Speci men Type: BLOOD SPECIMENOrdering Facility: [facility] Address: [address] [place] [address] Performed By: #### 5 7021-8 ####[facility] LABIA [id number] [place] [address] [place] Basophils/100 WBC (Bld) 0.3 % Normal [facility] Comment on above: Order Comment: Speci men Type: BLOOD SPECIMENOrdering Facility: [facility] Address: [address] [place] [address] Performed By: #### 5 7021-8 ####[facility] LABCLIA [id number] [place] [address] [place] Differential cell count method Nom (Bld) Auto Normal [facility] Comment on above: Order Comment: Speci men Type: BLOOD SPECIMENOrdering Facility: [facility] Address: [address] [place] [address] Performed By: #### 5 7021-8 ####[facility] LABCLIA [id number] [place] [address] [place] Eosinophils (Bld) [#/Vol] 0.14 10*3/uL Normal <0.46 [facility] Comment on above: Order Comment: Speci men Type: BLOOD SPECIMENOrdering Facility: [facility] Address: [address] [place] [address] Performed By: #### 5 7021-8 ####[facility] LABCLIA [id number] [place] [address] [place] Eosinophils/100 WBC (Bld) 0.9 % Normal [facility] Comment on above: Order Comment: Speci men Type: BLOOD SPECIMENOrdering Facility: [facility] Address: [address] [place] [address] Performed By: #### 5 7021-8 ####[facility] LABCLIA [id number] [place] [address] [place] Erythrocyte distribution width (RBC) [Ratio] 22.0 % High 11.5-15.0 [facility] Comment on above: Order Comment: Speci men Type: BLOOD SPECIMENOrdering Facility: [facility] Address: [address] [place] [address] Performed By: #### 5 7021-8 ####[facility] LABCLIA [id number] [place] [id number] [place] Hematocrit (Bld) [Volume fraction] 28.7 % Low 36.0-46.0 [facility] Comment on above: Order Comment: Speci men Type: BLOOD SPECIMENOrdering Facility: [facility] Address: [address] [place] [address] Performed By: #### 5 7021-8 ####[facility] LABCLIA [id number] [place] [address] [place] Hemoglobin (Bld) [Mass/Vol] 8.6 g/dL Low 11.5-15.5 [facility] Comment on above: Order Comment: Speci men Type: BLOOD SPECIMENOrdering Facility: [facility] Address: [address] [place] [address] Performed By: #### 5 7021-8 ####[facility] LABCLIA [id number] [place] [address] [place] Immature granulocytes (Bld) [#/Vol] 0.12 10*3/uL High <0.10 [facility] Comment on above: Order Comment: Speci men Type: BLOOD SPECIMENOrdering Facility: [facility] Address: [address] [place] [address] Performed By: #### 5 7021-8 ####[facility] LABIA [id number] [place] [address] [place] Immature granulocytes/100 WBC (Bld) 0.7 % Normal [facility] Comment on above: Order Comment: Speci men Type: BLOOD SPECIMENOrdering Facility: [facility] Address: [address] [place] [address] Performed By: #### 5 7021-8 ####[facility] LABCLIA [id number] [place] [address] [place] Lymphocytes (Bld) [#/Vol] 1.56 10*3/uL Normal 1.00-4.00 [facility] Comment on above: Order Comment: Speci men Type: BLOOD SPECIMENOrdering Facility: [facility] Address: [address] [place] [address] Performed By: #### 5 7021-8 ####[facility] LABIA [id number] [place] [address] [place] Lymphocytes/100 WBC (Bld) 9.7 % Normal [facility] Comment on above: Order Comment: Speci men Type: BLOOD SPECIMENOrdering Facility: [facility] Address: [address] [place] [address] Performed By: #### 5 7021-8 ####[facility] LABIA [id number] [place] [address] [place] MCH (RBC) [Entitic mass] 26.5 pg Normal 26.0-34.0 [facility] Comment on above: Order Comment: Speci men Type: BLOOD SPECIMENOrdering Facility: [facility] Address: [address] [place] [address] Performed By: #### 5 7021-8 ####[facility] LABIA [id number] [place] [address] [place] MCHC (RBC) [Mass/Vol] 30.0 g/dL Low 30.5-36.0 [facility] Comment on above: Order Comment: Speci men Type: BLOOD SPECIMENOrdering Facility: [facility] Address: [address] [place] [address] Performed By: #### 5 7021-8 ####[facility] LABIA [id number] [place] [address] [place] MCV (RBC) [Entitic vol] 88.6 fL Normal 80.0-100.0 [facility] Comment on above: Order Comment: Speci men Type: BLOOD SPECIMENOrdering Facility: [facility] Address: [address] [place] [address] Performed By: #### 5 7021-8 ####[facility] LABIA [id number] [place] [address] [place] Monocytes (Bld) [#/Vol] 1.48 10*3/uL High <0.87 [facility] Comment on above: Order Comment: Speci men Type: BLOOD SPECIMENOrdering Facility: [facility] Address: [address] [place] [address] Performed By: #### 5 7021-8 ####[facility] LABCLIA [id number] [facility] AVENUELUCI[facility] [place] [address] [place] Monocytes/100 WBC (Bld) 9.2 % Normal [facility] Comment on above: Order Comment: Speci men Type: BLOOD SPECIMENOrdering Facility: [facility] Address: [address] [place] [address] Performed By: #### 5 7021-8 ####[facility] LABCLIA [id number] [facility] [address], [place] [address] [place] Neutrophils (Bld) [#/Vol] 12.66 10*3/uL High 1.45-7.50 [facility] Comment on above: Order Comment: Speci men Type: BLOOD SPECIMENOrdering Facility: [facility] Address: [address] [place] [address] Performed By: #### 5 7021-8 ####[facility] LABCLIA [id number] [facility] [place] [address] [place] Neutrophils/100 WBC (Bld) 79.2 % Normal [facility] Comment on above: Order Comment: Speci men Type: BLOOD SPECIMENOrdering Facility: [facility] Address: [address] [place] [address] Performed By: #### 5 7021-8 ####[facility] LABCLIA [id number] [place] [address] [place] Nucleated RBC (Bld) [#/Vol] 0.02 10*3/uL High <0.01 [facility] Comment on above: Order Comment: Speci men Type: BLOOD SPECIMENOrdering Facility: [facility] Address: [address] [place] [address] Performed By: #### 5 7021-8 ####[facility] LABCLIA [id number] [address] [place] [address] [place] Nucleated RBC/100 WBC (Bld) [Ratio] 0.1 /100 WBC Normal [facility] Comment on above: Order Comment: Speci men Type: BLOOD SPECIMENOrdering Facility: [facility] Address: [address] [place] [address] Performed By: #### 5 7021-8 ####[facility] LABCLIA [id number] [address] [place] [address] [place] Platelet mean volume (Bld) [Entitic vol] 9.7 fL Normal 9.0-12.7 [facility] Comment on above: Order Comment: Speci men Type: BLOOD SPECIMENOrdering Facility: [facility] Address: [address] [place] [address] Performed By: #### 5 7021-8 ####[facility] LABIA [id number] [address], [facility]95 [place] Platelets (Bld) [#/Vol] 236 10*3/uL Normal 150-400 [facility] Comment on above: Order Comment: Speci men Type: BLOOD SPECIMENOrdering Facility: [facility] Address: [address] [place] [address] Performed By: #### 5 7021-8 ####[facility] LABCLIA [id number] [address] [place] [address] [place] RBC (Bld) [#/Vol] 3.24 10*6/uL Low 3.90-5.20 [facility] Comment on above: Order Comment: Speci men Type: BLOOD SPECIMENOrdering Facility: [facility] Address: [address] [place] [address] Performed By: #### 5 7021-8 ####[facility] LABIA [id number] [address] [place] [address] [place] WBC (Bld) [#/Vol] 16.01 10*3/uL High 3.70-11.00 [facility] Comment on above: Order Comment: Speci men Type: BLOOD SPECIMENOrdering Facility: [facility] Address: [address] [place] [address] Performed By: #### 5 7021-8 ####[facility] LABCLIA [id number] [place] [address] [place] CONSULT PROGon 12-14-2024 CONSULT PROG Normal [facility] CONSULT PROG Normal [facility] Comprehensive metabolic 2000 panelon 12-14-2024 Albumin [Mass/Vol] 3.3 g/dL Low 3.9-4.9 [facility] Comment on above: Order Comment: Speci men Type: BLOOD SPECIMENOrdering Facility: [facility] Address: [address] [place] [address] Performed By: #### 2 777-1, 89866-4, ####[facility] LABCLIA [id number] [place] [address] [place] ALP [Catalytic activity/Vol] 103 U/L Normal 34-123 [facility] Comment on above: Order Comment: Speci men Type: BLOOD SPECIMENOrdering Facility: [facility] Address: [address] [place] [address] Performed By: #### 2 777-1, 31805-5, ####[facility] LABCLIA [id number] [address] [address] [place] ALT [Catalytic activity/Vol] 25 U/L Normal 7-38 [facility] Comment on above: Order Comment: Speci men Type: BLOOD SPECIMENOrdering Facility: [facility] Address: [address] [place] [address] Performed By: #### 2 777-1, 67447-8, ####[facility] LABCLIA [id number] [address] [place] [address] [place] Anion gap [Moles/Vol] 12 mmol/L Normal 8-15 [facility] Comment on above: Order Comment: Speci men Type: BLOOD SPECIMENOrdering Facility: [facility] Address: [address] [place] [address] Performed By: #### 2 777-1, 98999-0, ####[facility] LABCLIA [id number] [address] [place] [address] [place] AST [Catalytic activity/Vol] 19 U/L Normal 13-35 [facility] Comment on above: Order Comment: Speci men Type: BLOOD SPECIMENOrdering Facility: [facility] Address: [address] [place] [address] Performed By: #### 2 777-1, 60879-0, ####[facility] LABCLIA [id number] [address] [address] [place] Bilirubin [Mass/Vol] 0.9 mg/dL Normal 0.2-1.3 [facility] Comment on above: Order Comment: Speci men Type: BLOOD SPECIMENOrdering Facility: [facility] Address: [address] [place] [address] Performed By: #### 2 777-1, 43693-0, ####[facility] LABCLIA [id number] [address] [place] [address] [place] Calcium [Mass/Vol] 8.6 mg/dL Normal 8.5-10.2 [facility] Comment on above: Order Comment: Speci men Type: BLOOD SPECIMENOrdering Facility: [facility] Address: [address] [place] [address] Performed By: #### 2 777-1, 35399-4, ####[facility] LABCLIA [id number] [address] [place] [address] [place] Chloride [Moles/Vol] 100 mmol/L Normal 98-107 [facility] Comment on above: Order Comment: Speci men Type: BLOOD SPECIMENOrdering Facility: [facility] Address: [address] [place], [place] [address] Performed By: #### 2 777-1, 91555-8, ####[facility] LABCLIA [id number] [place] [id number] [place] CO2 [Moles/Vol] 21 mmol/L Low 22-30 [facility] Comment on above: Order Comment: Speci men Type: BLOOD SPECIMENOrdering Facility: [facility] Address: [address] [place], [place] [address] Performed By: #### 2 777-1, 80614-0, ####[facility] LABCLIA [id number] [place] [id number] [place] Creatinine [Mass/Vol] 0.91 mg/dL Normal 0.58-0.96 [facility] Comment on above: Order Comment: Speci men Type: BLOOD SPECIMENOrdering Facility: [facility] Address: [address] [place], [place] [address] Performed By: #### 2 777-1, 22920-9, ####[facility] LABIA [id number] [place] [id number] [place] Creatinine and Glomerular filtration rate.predicted panel (S/P/Bld) 81 mL/min/1.73m??? Normal >=60 [facility] Comment on above: Order Comment: Speci men Type: BLOOD SPECIMENOrdering Facility: [facility] Address: [address] [place], [place] [address] Result Comment: Zeny mated Glomerular Filtration Rate (eGFR) is calculated using the 2020 CKD-EPI creatinine equation. This equation utilizes serum creatinine, sex, and age as parameters. The creatinine assay has traceable calibration to isotope dilution-mass spectrometry. Refer to KDIGO guidelines for clinical interpretation. In patients with unstable renal function, e.g. those with acute kidney injury, the eGFR may not accurately reflect actual GFR. Performed By: #### 2 777-1, , ####[facility] LABCLIA [id number] [facility] [address] [address] [place] Glucose [Mass/Vol] 139 mg/dL High 74-99 [facility] Comment on above: Order Comment: Specsammie finch Type: BLOOD SPECIMENOrdering Facility: [facility] Address: [address] [place] [id number] Result Comment: The [place] [employer] (ADA) provides guidance for cutoff values for fasting glucose and random glucose. The ADA defines fasting as no caloric intake for at least 8 hours. Fasting plasma glucose results between 100 to 125 mg/dL indicate increased risk for diabetes (prediabetes).Fasting plasma glucose results greater than or equal to 126 mg/dL meet the criteria for diagnosis of diabetes. In the absence of unequivocal hyperglycemia, results should be confirmed by repeat testing. In a patient with classic symptoms of hyperglycemia or hyperglycemic crisis, random plasma glucose results greater than or equal to 200 mg/dL meet the criteria for diagnosis of diabetes.Reference: Standards of Medical Care in Diabetes 2016, [place] [employer]. Diabetes Care. 2016.39(Suppl 1). Performed By: #### 2 777-1, , ####[facility] LABCLIA [id number] [facility] Vamp CommunicationsLUCILE [facility] [address] [address] [place] Potassium [Moles/Vol] 3.8 mmol/L Normal 3.7-5.1 [facility] Comment on above: Order Comment: Dora finch Type: BLOOD SPECIMENOrdering Facility: [facility] Address: [address] [place] [address] Performed By: #### 2 777-1, , ####[facility] LABCLIA [id number] [facility] [address] [id number] [address] [place] Protein [Mass/Vol] 6.2 g/dL Low 6.3-8.0 [facility] Comment on above: Order Comment: Speci men Type: BLOOD SPECIMENOrdering Facility: [facility] Address: [address] [place] [address] Performed By: #### 2 777-1, , ####[facility] LABCLIA [id number] [address] [address] [place] Sodium [Moles/Vol] 133 mmol/L Low 136-144 [facility] Comment on above: Order Comment: Speci men Type: BLOOD SPECIMENOrdering Facility: [facility] Address: [address] [place], [place] [address] Performed By: #### 2 777-1, , ####[facility] LABIA [id number] [place] [id number] [place] Urea nitrogen [Mass/Vol] 11 mg/dL Normal 7-21 [facility] Comment on above: Order Comment: Speci men Type: BLOOD SPECIMENOrdering Facility: [facility] Address: [address] [place] [address] Performed By: #### 2 777-1, , ####[facility] LABIA [id number] [place] [id number] [place] Magnesium SerPl-mCncon 12-14 Magnesium [Mass/Vol] 1.9 mg/dL Normal 1.7-2.3 [facility] Comment on above: Order Comment: Speci men Type: BLOOD SPECIMENOrdering Facility: [facility] Address: [address] [place], [place] [address] Performed By: #### 2 777-1, , ####[facility] LABIA [id number] [address] [address] [place] Phosphate SerPl-mCncon 12-14 Phosphate [Mass/Vol] 2.3 mg/dL Low 2.7-4.8 [facility] Comment on above: Order Comment: Speci men Type: BLOOD SPECIMENOrdering Facility: [facility] Address: [address] [place] [address] Performed By: #### 2 777-1, 04420-3, 57268-9 ####[facility] LABCLIA [id number] [address] [place] [address] [place] XR ABDOMEN 1V SUPINEon 12-14 XR ABDOMEN 1V SUPINE Normal [facility] CBC W Auto Differential pane l (Bld)on 12-13-2024 Basophils (Bld) [#/Vol] 0.04 10*3/uL Normal <0.11 [facility] Comment on above: Order Comment: Speci men Type: BLOOD SPECIMENOrdering Facility: [facility] Address: [address] [place] [address] Performed By: #### 5 7021-8 ####[facility] LABCLIA [id number] [place] [address] [place] Basophils/100 WBC (Bld) 0.3 % Normal [facility] Comment on above: Order Comment: Speci men Type: BLOOD SPECIMENOrdering Facility: [facility] Address: [address] [place] [address] Performed By: #### 5 7021-8 ####[facility] LABCLIA [id number] [address], [place] [address] [place] Differential cell count method Nom (Bld) Auto Normal [facility] Comment on above: Order Comment: Speci men Type: BLOOD SPECIMENOrdering Facility: [facility] Address: [address] [place] [address] Performed By: #### 5 7021-8 ####[facility] LABCLIA [id number] [place] [id number] [place] Eosinophils (Bld) [#/Vol] 10*3/uL Normal <0.46 [facility] Comment on above: Order Comment: Speci men Type: BLOOD SPECIMENOrdering Facility: [facility] Address: [address] [place] [address] Performed By: #### 5 7021-8 ####[facility] LABCLIA [id number] [place] [address] [place] Eosinophils/100 WBC (Bld) 0.1 % Normal [facility] Comment on above: Order Comment: Speci men Type: BLOOD SPECIMENOrdering Facility: [facility] Address: [address] [place] [address] Performed By: #### 5 7021-8 ####[facility] LABCLIA [id number] [place] [address] [place] Erythrocyte distribution width (RBC) [Ratio] 23.1 % High 11.5-15.0 [facility] Comment on above: Order Comment: Speci men Type: BLOOD SPECIMENOrdering Facility: [facility] Address: [address] [place] [address] Performed By: #### 5 7021-8 ####[facility] LABIA [id number] [place] [address] [place] Hematocrit (Bld) [Volume fraction] 34.3 % Low 36.0-46.0 [facility] Comment on above: Order Comment: Speci men Type: BLOOD SPECIMENOrdering Facility: [facility] Address: [address] [place] [address] Performed By: #### 5 7021-8 ####[facility] LABCLIA [id number] [place] [id number] [place] Hemoglobin (Bld) [Mass/Vol] 10.3 g/dL Low 11.5-15.5 [facility] Comment on above: Order Comment: Speci men Type: BLOOD SPECIMENOrdering Facility: [facility] Address: [address] [place] [address] Performed By: #### 5 7021-8 ####[facility] LABCLIA [id number] [place] [address] [place] Immature granulocytes (Bld) [#/Vol] 0.12 10*3/uL High <0.10 [facility] Comment on above: Order Comment: Speci men Type: BLOOD SPECIMENOrdering Facility: [facility] Address: [address] [place] [address] Performed By: #### 5 7021-8 ####[facility] LABCLIA [id number] [place] [address] [place] Immature granulocytes/100 WBC (Bld) 0.8 % Normal [facility] Comment on above: Order Comment: Speci men Type: BLOOD SPECIMENOrdering Facility: [facility] Address: [address] [place] [address] Performed By: #### 5 7021-8 ####[facility] LABIA [id number] [place] [address] [place] Lymphocytes (Bld) [#/Vol] 1.27 10*3/uL Normal 1.00-4.00 [facility] Comment on above: Order Comment: Speci men Type: BLOOD SPECIMENOrdering Facility: [facility] Address: [address] [place] [address] Performed By: #### 5 7021-8 ####[facility] LABCLIA [id number] [place] [address] [place] Lymphocytes/100 WBC (Bld) 8.0 % Normal [facility] Comment on above: Order Comment: Speci men Type: BLOOD SPECIMENOrdering Facility: [facility] Address: [address] [place] [address] Performed By: #### 5 7021-8 ####[facility] LABIA [id number] [address], [facility] [place] MCH (RBC) [Entitic mass] 26.9 pg Normal 26.0-34.0 [facility] Comment on above: Order Comment: Speci men Type: BLOOD SPECIMENOrdering Facility: [facility] Address: [address] [place] [address] Performed By: #### 5 7021-8 ####[facility] LABCLIA [id number] [place] [address] [place] MCHC (RBC) [Mass/Vol] 30.0 g/dL Low 30.5-36.0 [facility] Comment on above: Order Comment: Speci men Type: BLOOD SPECIMENOrdering Facility: [facility] Address: [address] [place] [address] Performed By: #### 5 7021-8 ####[facility] LABCLIA [id number] [place] [address] [place] MCV (RBC) [Entitic vol] 89.6 fL Normal 80.0-100.0 [facility] Comment on above: Order Comment: Speci men Type: BLOOD SPECIMENOrdering Facility: [facility] Address: [address] [place] [address] Performed By: #### 5 7021-8 ####[facility] LABCLIA [id number] [place] [address] [place] Monocytes (Bld) [#/Vol] 1.51 10*3/uL High <0.87 [facility] Comment on above: Order Comment: Speci men Type: BLOOD SPECIMENOrdering Facility: [facility] Address: [address] [place] [address] Performed By: #### 5 7021-8 ####[facility] LABCLIA [id number] [place] [address] [place] Monocytes/100 WBC (Bld) 9.5 % Normal [facility] Comment on above: Order Comment: Speci men Type: BLOOD SPECIMENOrdering Facility: [facility] Address: [address] [place] [address] Performed By: #### 5 7021-8 ####[facility] LABCLIA [id number] [place] [address] [place] Neutrophils (Bld) [#/Vol] 12.87 10*3/uL High 1.45-7.50 [facility] Comment on above: Order Comment: Speci men Type: BLOOD SPECIMENOrdering Facility: [facility] Address: [address] [place] [address] Performed By: #### 5 7021-8 ####[facility] LABCLIA [id number] [place] [address] [place] Neutrophils/100 WBC (Bld) 81.3 % Normal [facility] Comment on above: Order Comment: Speci men Type: BLOOD SPECIMENOrdering Facility: [facility] Address: [address] [place] [address] Performed By: #### 5 7021-8 ####[facility] LABIA [id number] [place] [address] [place] Nucleated RBC (Bld) [#/Vol] 0.02 10*3/uL High <0.01 [facility] Comment on above: Order Comment: Speci men Type: BLOOD SPECIMENOrdering Facility: [facility] Address: [address] [place] [address] Performed By: #### 5 7021-8 ####[facility] LABIA [id number] [place] [address] [place] Nucleated RBC/100 WBC (Bld) [Ratio] 0.1 /100 WBC Normal [facility] Comment on above: Order Comment: Speci men Type: BLOOD SPECIMENOrdering Facility: [facility] Address: [address] [place] [address] Performed By: #### 5 7021-8 ####[facility] LABCLIA [id number] [place] [address] [place] Platelet mean volume (Bld) [Entitic vol] 9.7 fL Normal 9.0-12.7 [facility] Comment on above: Order Comment: Speci men Type: BLOOD SPECIMENOrdering Facility: [facility] Address: [address] [place] [address] Performed By: #### 5 7021-8 ####[facility] LABCLIA [id number] [address] [address] [place] Platelets (Bld) [#/Vol] 274 10*3/uL Normal 150-400 [facility] Comment on above: Order Comment: Speci men Type: BLOOD SPECIMENOrdering Facility: [facility] Address: [address] [place] [address] Performed By: #### 5 7021-8 ####[facility] LABCLIA [id number] [place] [address] [place] RBC (Bld) [#/Vol] 3.83 10*6/uL Low 3.90-5.20 [facility] Comment on above: Order Comment: Speci men Type: BLOOD SPECIMENOrdering Facility: [facility] Address: [address] [place] [address] Performed By: #### 5 7021-8 ####[facility] LABCLIA [id number] [address] [address] [place] WBC (Bld) [#/Vol] 15.82 10*3/uL High 3.70-11.00 [facility] Comment on above: Order Comment: Speci men Type: BLOOD SPECIMENOrdering Facility: [facility] Address: [address] [place] [address] Performed By: #### 5 7021-8 ####[facility] LABCLIA [id number] [place] [id number] [place] CNPNon 12-13-2024 CNPN Normal [facility] CONSULTon 12-13-2024 CONSULT Normal [facility] CONSULT PROGon 12-13-2024 CONSULT PROG Normal [facility] CONSULT PROG Normal [facility] CRP SerPl-mCncon 12-13-2024 CRP [Mass/Vol] 14.4 mg/dL High <0.9 [facility] Comment on above: Order Comment: Speci men Type: BLOOD SPECIMENOrdering Facility: [facility] Address: [address] [place] [address] Performed By: #### 1 988-5 ####[facility] LABCLIA [id number] [address] [place] [address] [place] [facility] Comprehensive metabolic 2000 panelon 12-13-2024 Albumin [Mass/Vol] 3.8 g/dL Low 3.9-4.9 [facility] Comment on above: Order Comment: Speci men Type: BLOOD SPECIMENOrdering Facility: [facility] Address: [address] [place] [address] Performed By: #### 2 4323-8, 27712-25, ####[facility] LABCLIA [id number] [address] [address] [place] ALP [Catalytic activity/Vol] 118 U/L Normal 34-123 [facility] Comment on above: Order Comment: Speci men Type: BLOOD SPECIMENOrdering Facility: [facility] Address: [address] [place] [address] Performed By: #### 2 4323-8, 2776-06, ####[facility] LABCLIA [id number] [address] [place] [address] [place] ALT [Catalytic activity/Vol] 40 U/L High 7-38 [facility] Comment on above: Order Comment: Speci men Type: BLOOD SPECIMENOrdering Facility: [facility] Address: [address] [place], [place] [address] Performed By: #### 2 4323-8, 27712-25, ####[facility] LABCLIA [id number] [address] [place] [address] [place] Anion gap [Moles/Vol] 14 mmol/L Normal 8-15 [facility] Comment on above: Order Comment: Speci men Type: BLOOD SPECIMENOrdering Facility: [facility] Address: [address] [place] [address] Performed By: #### 2 4323-8, 2776-06, ####[facility] LABCLIA [id number] [place] [address] [place] AST [Catalytic activity/Vol] 31 U/L Normal 13-35 [facility] Comment on above: Order Comment: Speci men Type: BLOOD SPECIMENOrdering Facility: [facility] Address: [address] [place] [address] Performed By: #### 2 4323-8, 2776-06, ####[facility] LABCLIA [id number] [place] [address] [place] Bilirubin [Mass/Vol] 1.1 mg/dL Normal 0.2-1.3 [facility] Comment on above: Order Comment: Speci men Type: BLOOD SPECIMENOrdering Facility: [facility] Address: [address] [place] [address] Performed By: #### 2 4323-8, 2776-06, ####[facility] LABCLIA [id number] [place] [address] [place] Calcium [Mass/Vol] 9.0 mg/dL Normal 8.5-10.2 [facility] Comment on above: Order Comment: Speci men Type: BLOOD SPECIMENOrdering Facility: [facility] Address: [address] [place] [address] Performed By: #### 2 4323-8, 2776-06, ####[facility] LABCLIA [id number] [facility] [address] [address] [place] Chloride [Moles/Vol] 102 mmol/L Normal 98-107 [facility] Comment on above: Order Comment: Speci men Type: BLOOD SPECIMENOrdering Facility: [facility] Address: [address] [place] [address] Performed By: #### 2 4323-8, 2776-06, ####[facility] LABCLIA [id number] [address] [address] [place] CO2 [Moles/Vol] 21 mmol/L Low 22-30 [facility] Comment on above: Order Comment: Speci men Type: BLOOD SPECIMENOrdering Facility: [facility] Address: [address] [place] [address] Performed By: #### 2 4323-8, 2776-06, ####[facility] LABCLIA [id number] [address] [address] [place] Creatinine [Mass/Vol] 0.74 mg/dL Normal 0.58-0.96 [facility] Comment on above: Order Comment: Speci men Type: BLOOD SPECIMENOrdering Facility: [facility] Address: [address] [place] [address] Performed By: #### 2 4323-8, 2776-06, ####[facility] LABCLIA [id number] [address] [address] [place] Creatinine and Glomerular filtration rate.predicted panel (S/P/Bld) 104 mL/min/1.73m??? Normal >=60 [facility] Comment on above: Order Comment: Speci men Type: BLOOD SPECIMENOrdering Facility: [facility] Address: [address] [place], [place] [address] Result Comment: Zeny mated Glomerular Filtration Rate (eGFR) is calculated using the 2020 CKD-EPI creatinine equation. This equation utilizes serum creatinine, sex, and age as parameters. The creatinine assay has traceable calibration to isotope dilution-mass spectrometry. Refer to KDIGO guidelines for clinical interpretation. In patients with unstable renal function, e.g. those with acute kidney injury, the eGFR may not accurately reflect actual GFR. Performed By: #### 2 4323-8, 2777, ####[facility] LABCLIA [id number] [address] [address] [place] Glucose [Mass/Vol] 124 mg/dL High 74-99 [facility] Comment on above: Order Comment: Speci men Type: BLOOD SPECIMENOrdering Facility: [facility] Address: [address] [place] [address] Result Comment: The [place] [employer] (ADA) provides guidance for cutoff values for fasting glucose and random glucose. The ADA defines fasting as no caloric intake for at least 8 hours. Fasting plasma glucose results between 100 to 125 mg/dL indicate increased risk for diabetes (prediabetes).Fasting plasma glucose results greater than or equal to 126 mg/dL meet the criteria for diagnosis of diabetes. In the absence of unequivocal hyperglycemia, results should be confirmed by repeat testing. In a patient with classic symptoms of hyperglycemia or hyperglycemic crisis, random plasma glucose results greater than or equal to 200 mg/dL meet the criteria for diagnosis of diabetes.Reference: Standards of Medical Care in Diabetes 2016, [place] [employer]. Diabetes Care. 2016.39(Suppl 1). Performed By: #### 2 4323-8, 2776-06, ####[facility] LABCLIA [id number] [address] [address] [place] Potassium [Moles/Vol] 4.5 mmol/L Normal 3.7-5.1 [facility] Comment on above: Order Comment: Speci men Type: BLOOD SPECIMENOrdering Facility: [facility] Address: [address] [place] [address] Performed By: #### 2 4323-8, 2777, ####[facility] LABIA [id number] [address] [address] [place] Protein [Mass/Vol] 6.5 g/dL Normal 6.3-8.0 [facility] Comment on above: Order Comment: Speci men Type: BLOOD SPECIMENOrdering Facility: [facility] Address: [address] [place] [address] Performed By: #### 2 4323-8, 2777-1, 68627-4 ####[facility] [id number] [place] [id number] [place] Sodium [Moles/Vol] 137 mmol/L Normal 136-144 [facility] Comment on above: Order Comment: Speci men Type: BLOOD SPECIMENOrdering Facility: [facility] Address: [address] [place] [address] Performed By: #### 2 4323-8, 27771, ####[facility] [id number] [place] [id number] [place] Urea nitrogen [Mass/Vol] 11 mg/dL Normal 7-21 [facility] Comment on above: Order Comment: Speci men Type: BLOOD SPECIMENOrdering Facility: [facility] Address: [address] [place] [address] Performed By: #### 2 4323-8, 2777-1, ####[facility] [id number] [place] [id number] [place] Magnesium SerPl-mCncon 12-13 Magnesium [Mass/Vol] 1.6 mg/dL Low 1.7-2.3 [facility] Comment on above: Order Comment: Speci men Type: BLOOD SPECIMENOrdering Facility: [facility] Address: [address] [place] [address] Performed By: #### 2 4323-8, 27771, ####[facility] [id number] [place] [id number] [place] Phosphate SerPl-mCncon 12-13 Phosphate [Mass/Vol] 3.8 mg/dL Normal 2.7-4.8 [facility] Comment on above: Order Comment: Speci men Type: BLOOD SPECIMENOrdering Facility: [facility] Address: [address] [place] [address] Performed By: #### 2 4323-8, 2777-1, 57095-9 ####[facility] LABCLIA [id number] [place] [address] [place] ANES POSTPROC EVALon 025 ANES POSTPROC EVAL Normal [facility] ANES PRE-OPon 12-12-2024 ANES PRE-OP Normal [facility] ARTERIAL BLOOD GASESon 12-12 Base deficit (BldA) [Moles/Vol] -6 mmol/L Low -2-0 [facility] Comment on above: Order Comment: Speci men Type: ARTERIAL BLOOD SPECIMENOrdering Facility: [facility] Address: [address] [place] [address] Performed By: #### A LLBG ####[facility] LABCLIA [id number] [place] [address] [place] Body temperature 97.34 [degF] Normal [facility] Comment on above: Order Comment: Speci men Type: ARTERIAL BLOOD SPECIMENOrdering Facility: [facility] Address: [address] [place] [address] Performed By: #### A LLBG ####[facility] LABCLIA [id number] [place] [address] [place] Calcium.ionized (Bld) [Mass/Vol] 1.19 mmol/L Normal 1.08-1.30 [facility] Comment on above: Order Comment: Speci men Type: ARTERIAL BLOOD SPECIMENOrdering Facility: [facility] Address: [address] [place] [address] Performed By: #### A LLBG ####[facility] LABCLIA [id number] [place] [address] [place] Calcium.ionized adjusted to pH 7.4 (BldA) [Moles/Vol] 1.15 mmol/L Normal 1.08-1.30 [facility] Comment on above: Order Comment: Speci men Type: ARTERIAL BLOOD SPECIMENOrdering Facility: [facility] Address: [address] [place] [address] Performed By: #### A LLBG ####[facility] LABCLIA [id number] [address] [address] [place] Carboxyhemoglobin (BldA) [Mass fraction] 1.6 % Normal 0.0-2.0 [facility] Comment on above: Order Comment: Speci men Type: ARTERIAL BLOOD SPECIMENOrdering Facility: [facility] Address: [address] [place] [address] Result Comment: Carb oxyhemoglobin Reference Range for Smokers: 2.0-8.0% Performed By: #### A LLBG ####[facility] LABCLIA [id number] [place] [id number] [place] CO2 (Bld) [Partial pressure] 38 mm Hg Normal 36-46 [facility] Comment on above: Order Comment: Speci men Type: ARTERIAL BLOOD SPECIMENOrdering Facility: [facility] Address: [address] [place] [address] Performed By: #### A LLBG ####[facility] LABCLIA [id number] [place] [address] [place] CO2 adjusted to patient's actual temperature (Bld) [Partial pressure] 36 mmHg Normal 36-46 [facility] Comment on above: Order Comment: Speci men Type: ARTERIAL BLOOD SPECIMENOrdering Facility: [facility] Address: [address] [place] [address] Performed By: #### A LLBG ####[facility] LABCLIA [id number] [place] [id number] [place] Glucose [Mass/Vol] 178 mg/dL High 60-105 [facility] Comment on above: Order Comment: Speci men Type: ARTERIAL BLOOD SPECIMENOrdering Facility: [facility] Address: [address] [place] [address] Performed By: #### A LLBG ####[facility] LABCLIA [id number] [place] [address] [place] HCO3 (Bld) [Moles/Vol] 19 mmol/L Low 22-26 [facility] Comment on above: Order Comment: Speci men Type: ARTERIAL BLOOD SPECIMENOrdering Facility: [facility] Address: [address] [place] [address] Performed By: #### A LLBG ####[facility] LABCLIA [id number] [place] [address] [place] Hematocrit (Bld) [Volume fraction] 27.9 % Low 36.0-46.0 [facility] Comment on above: Order Comment: Speci men Type: ARTERIAL BLOOD SPECIMENOrdering Facility: [facility] Address: [address] [place] [address] Performed By: #### A LLBG ####[facility] LABCLIA [id number] [place] [address] [place] Hemoglobin (Bld) [Mass/Vol] 9.0 g/dL Low 11.5-15.5 [facility] Comment on above: Order Comment: Speci men Type: ARTERIAL BLOOD SPECIMENOrdering Facility: [facility] Address: [address] [place] [address] Performed By: #### A LLBG ####[facility] LABCLIA [id number] [place] [address] [place] Lactate [Moles/Vol] 5.1 mmol/L High 0.5-2.2 [facility] Comment on above: Order Comment: Speci men Type: ARTERIAL BLOOD SPECIMENOrdering Facility: [facility] Address: [address] [place] [address] Performed By: #### A LLBG ####[facility] LABCLIA [id number] [address] [address] [place] LITERS 2 Liters/min Normal [facility] Comment on above: Order Comment: Speci men Type: ARTERIAL BLOOD SPECIMENOrdering Facility: [facility] Address: [address] [place] [id number] Performed By: #### A LLBG ####[facility] LABCLIA [id number] [address] [place] [address] [place] Methemoglobin (Bld) [Mass fraction] 1.0 % Normal 0.0-1.5 [facility] Comment on above: Order Comment: Speci men Type: ARTERIAL BLOOD SPECIMENOrdering Facility: [facility] Address: [address] [place] [address] Performed By: #### A LLBG ####[facility] LABCLIA [id number] [place] [id number] [place] O2 THERAPY [place] = Nasal Cannula Normal [facility] Comment on above: Order Comment: Speci men Type: ARTERIAL BLOOD SPECIMENOrdering Facility: [facility] Address: [address] [place], [place] [address] Performed By: #### A LLBG ####[facility] LABCLIA [id number] [address] [address] [place] Oxygen (Bld) [Partial pressure] 110 mm Hg High 85-95 [facility] Comment on above: Order Comment: Speci men Type: ARTERIAL BLOOD SPECIMENOrdering Facility: [facility] Address: [address] [place] [id number] Performed By: #### A LLBG ####[facility] LABCLIA [id number] [address] [address] [place] Oxygen adjusted to patient's actual temperature (Bld) [Partial pressure] 106 mmHg High 85-95 [facility] Comment on above: Order Comment: Speci men Type: ARTERIAL BLOOD SPECIMENOrdering Facility: [facility] Address: [address] [place] [id number] Performed By: #### A LLBG ####[facility] LABCLIA [id number] [address] [address] [place] Oxyhemoglobin (BldA) [Mass fraction] 96 % Normal 95-98 [facility] Comment on above: Order Comment: Speci men Type: ARTERIAL BLOOD SPECIMENOrdering Facility: [facility] Address: [address] [place] [address] Performed By: #### A LLBG ####[facility] LABCLIA [id number] [place] [address] [place] pH (Bld) 7.33 [pH] Low 7.35-7.45 [facility] Comment on above: Order Comment: Speci men Type: ARTERIAL BLOOD SPECIMENOrdering Facility: [facility] Address: [address] [place] [address] Performed By: #### A LLBG ####[facility] LABIA [id number] [place] [address] [place] pH adjusted to patient's actual temperature (Bld) 7.34 Low 7.35-7.45 [facility] Comment on above: Order Comment: Speci men Type: ARTERIAL BLOOD SPECIMENOrdering Facility: [facility] Address: [address] [place] [address] Performed By: #### A LLBG ####[facility] LABCLIA [id number] [place] [address] [place] Potassium [Moles/Vol] 4.3 mmol/L Normal 3.5-5.0 [facility] Comment on above: Order Comment: Speci men Type: ARTERIAL BLOOD SPECIMENOrdering Facility: [facility] Address: [address] [place] [address] Performed By: #### A LLBG ####[facility] LABCLIA [id number] [place] [id number] [place] Sodium [Moles/Vol] 139 mmol/L Normal 136-144 [facility] Comment on above: Order Comment: Speci men Type: ARTERIAL BLOOD SPECIMENOrdering Facility: [facility] Address: [address] [place] [address] Performed By: #### A LLBG ####[facility] LABCLIA [id number] [place] [address] [place] Base deficit (BldA) [Moles/Vol] -7 mmol/L Low -2-0 [facility] Comment on above: Order Comment: Speci men Type: ARTERIAL BLOOD SPECIMENOrdering Facility: [facility] Address: [address] [place] [address] Performed By: #### A LLBG ####[facility] LABIA [id number] [place] [address] [place] Body temperature 97.52 [degF] Normal [facility] Comment on above: Order Comment: Speci men Type: ARTERIAL BLOOD SPECIMENOrdering Facility: [facility] Address: [address] [place] [address] Performed By: #### A LLBG ####[facility] LABCLIA [id number] [place] [address] [place] Calcium.ionized (Bld) [Mass/Vol] 1.17 mmol/L Normal 1.08-1.30 [facility] Comment on above: Order Comment: Speci men Type: ARTERIAL BLOOD SPECIMENOrdering Facility: [facility] Address: [address] [place] [address] Performed By: #### A LLBG ####[facility] LABCLIA [id number] [place] [id number] [place] Calcium.ionized adjusted to pH 7.4 (BldA) [Moles/Vol] 1.13 mmol/L Normal 1.08-1.30 [facility] Comment on above: Order Comment: Speci men Type: ARTERIAL BLOOD SPECIMENOrdering Facility: [facility] Address: [address] [place] [address] Performed By: #### A LLBG ####[facility] LABCLIA [id number] [place] [address] [place] Carboxyhemoglobin (BldA) [Mass fraction] 1.6 % Normal 0.0-2.0 [facility] Comment on above: Order Comment: Speci men Type: ARTERIAL BLOOD SPECIMENOrdering Facility: [facility] Address: [address] [place] [address] Result Comment: Carb oxyhemoglobin Reference Range for Smokers: 2.0-8.0% Performed By: #### A LLBG ####[facility] LABCLIA [id number] [place] [address] [place] CO2 (Bld) [Partial pressure] 33 mm Hg Low 36-46 [facility] Comment on above: Order Comment: Speci men Type: ARTERIAL BLOOD SPECIMENOrdering Facility: [facility] Address: [address] [place] [address] Performed By: #### A LLBG ####[facility] LABCLIA [id number] [place] [address] [place] CO2 adjusted to patient's actual temperature (Bld) [Partial pressure] 32 mmHg Low 36-46 [facility] Comment on above: Order Comment: Speci men Type: ARTERIAL BLOOD SPECIMENOrdering Facility: [facility] Address: [address] [place] [address] Performed By: #### A LLBG ####[facility] LABCLIA [id number] [place] [id number] [place] Glucose [Mass/Vol] 206 mg/dL High 60-105 [facility] Comment on above: Order Comment: Speci men Type: ARTERIAL BLOOD SPECIMENOrdering Facility: [facility] Address: [address] [place] [address] Performed By: #### A LLBG ####[facility] LABCLIA [id number] [place] [id number] [place] HCO3 (Bld) [Moles/Vol] 17 mmol/L Low 22-26 [facility] Comment on above: Order Comment: Speci men Type: ARTERIAL BLOOD SPECIMENOrdering Facility: [facility] Address: [address] [place] [address] Performed By: #### A LLBG ####[facility] LABCLIA [id number] [place] [address] [place] Hematocrit (Bld) [Volume fraction] 27.6 % Low 36.0-46.0 [facility] Comment on above: Order Comment: Speci men Type: ARTERIAL BLOOD SPECIMENOrdering Facility: [facility] Address: [address] [place] [address] Performed By: #### A LLBG ####[facility] LABCLIA [id number] [place] [address] [place] Hemoglobin (Bld) [Mass/Vol] 8.9 g/dL Low 11.5-15.5 [facility] Comment on above: Order Comment: Speci men Type: ARTERIAL BLOOD SPECIMENOrdering Facility: [facility] Address: [address] [place] [address] Performed By: #### A LLBG ####[facility] LABCLIA [id number] [place] [address] [place] Lactate [Moles/Vol] 5.8 mmol/L High 0.5-2.2 [facility] Comment on above: Order Comment: Speci men Type: ARTERIAL BLOOD SPECIMENOrdering Facility: [facility] Address: [address] [place] [address] Performed By: #### A LLBG ####[facility] LABCLIA [id number] [place] [address] [place] LITERS 2 Liters/min Normal [facility] Comment on above: Order Comment: Speci men Type: ARTERIAL BLOOD SPECIMENOrdering Facility: [facility] Address: [address], [place] [address] Performed By: #### A LLBG ####[facility] LABCLIA [id number] [address] [address] [place] Methemoglobin (Bld) [Mass fraction] 0.7 % Normal 0.0-1.5 [facility] Comment on above: Order Comment: Speci men Type: ARTERIAL BLOOD SPECIMENOrdering Facility: [facility] Address: [address] [place], [place] [address] Performed By: #### A LLBG ####[facility] LABCLIA [id number] [address] [address] [place] O2 THERAPY NC = Nasal Cannula Normal [facility] Comment on above: Order Comment: Speci men Type: ARTERIAL BLOOD SPECIMENOrdering Facility: [facility] Address: [address] [place], [place] [address] Performed By: #### A LLBG ####[facility] LABCLIA [id number] [address] [address] [place] Oxygen (Bld) [Partial pressure] 127 mm Hg High 85-95 [facility] Comment on above: Order Comment: Speci men Type: ARTERIAL BLOOD SPECIMENOrdering Facility: [facility] Address: [address] [place], [place] [address] Performed By: #### A LLBG ####[facility] LABCLIA [id number] [address] [address] [place] Oxygen adjusted to patient's actual temperature (Bld) [Partial pressure] 124 mmHg High 85-95 [facility] Comment on above: Order Comment: Speci men Type: ARTERIAL BLOOD SPECIMENOrdering Facility: [facility] Address: [address] [place] [address] Performed By: #### A LLBG ####[facility] LABCLIA [id number] [address] [address] [place] Oxyhemoglobin (BldA) [Mass fraction] 97 % Normal 95-98 [facility] Comment on above: Order Comment: Speci men Type: ARTERIAL BLOOD SPECIMENOrdering Facility: [facility] Address: [address] [place] [address] Performed By: #### A LLBG ####[facility] LABCLIA [id number] [place] [address] [place] pH (Bld) 7.33 [pH] Low 7.35-7.45 [facility] Comment on above: Order Comment: Speci men Type: ARTERIAL BLOOD SPECIMENOrdering Facility: [facility] Address: [address] [place] [address] Performed By: #### A LLBG ####[facility] LABCLIA [id number] [place] [address] [place] pH adjusted to patient's actual temperature (Bld) 7.34 Low 7.35-7.45 [facility] Comment on above: Order Comment: Speci men Type: ARTERIAL BLOOD SPECIMENOrdering Facility: [facility] Address: [address] [place] [address] Performed By: #### A LLBG ####[facility] LABCLIA [id number] [place] [address] [place] Potassium [Moles/Vol] 4.1 mmol/L Normal 3.5-5.0 [facility] Comment on above: Order Comment: Speci men Type: ARTERIAL BLOOD SPECIMENOrdering Facility: [facility] Address: [address] [place] [address] Performed By: #### A LLBG ####[facility] LABCLIA [id number] [place] [address] [place] Sodium [Moles/Vol] 140 mmol/L Normal 136-144 [facility] Comment on above: Order Comment: Speci men Type: ARTERIAL BLOOD SPECIMENOrdering Facility: [facility] Address: [address] [place] [address] Performed By: #### A LLBG ####[facility] [id number] [place] [address] [place] ARTERIAL BLOOD GASES WITH IO NIZED MAGNESIUMon 12-12-2024 Base deficit (BldA) [Moles/Vol] -4 mmol/L Low -2-0 [facility] Comment on above: Order Comment: Speci men Type: ARTERIAL BLOOD SPECIMENOrdering Facility: [facility] Address: [address] [place] [address] Performed By: #### A LLMG ####[facility] [id number] [place] [address] [place] Calcium.ionized (Bld) [Mass/Vol] 1.14 mmol/L Normal 1.08-1.30 [facility] Comment on above: Order Comment: Speci men Type: ARTERIAL BLOOD SPECIMENOrdering Facility: [facility] Address: [address] [place] [address] Performed By: #### A LLMG ####[facility] [id number] [place] [address] [place] Calcium.ionized adjusted to pH 7.4 (BldA) [Moles/Vol] 1.12 mmol/L Normal 1.08-1.30 [facility] Comment on above: Order Comment: Speci men Type: ARTERIAL BLOOD SPECIMENOrdering Facility: [facility] Address: [address] [place] [address] Performed By: #### A LLMG ####[facility] [id number] [place] [address] [place] Carboxyhemoglobin (BldA) [Mass fraction] 2.0 % Normal 0.0-2.0 [facility] Comment on above: Order Comment: Speci men Type: ARTERIAL BLOOD SPECIMENOrdering Facility: [facility] Address: [address] [place] [address] Result Comment: Carb oxyhemoglobin Reference Range for Smokers: 2.0-8.0% Performed By: #### A LLMG ####[facility] LABCLIA [id number] [address] [place] [address] [place] CO2 (Bld) [Partial pressure] 37 mm Hg Normal 36-46 [facility] Comment on above: Order Comment: Speci men Type: ARTERIAL BLOOD SPECIMENOrdering Facility: [facility] Address: [address] [place] [address] Performed By: #### A LLMG ####[facility] LABCLIA [id number] [address] [address] [place] CO2 adjusted to patient's actual temperature (Bld) [Partial pressure] 37 mmHg Normal 36-46 [facility] Comment on above: Order Comment: Speci men Type: ARTERIAL BLOOD SPECIMENOrdering Facility: [facility] Address: [address] [place] [address] Performed By: #### A LLMG ####[facility] LABCLIA [id number] [place] [address] [place] Glucose [Mass/Vol] 148 mg/dL High 60-105 [facility] Comment on above: Order Comment: Speci men Type: ARTERIAL BLOOD SPECIMENOrdering Facility: [facility] Address: [address] [place] [address] Performed By: #### A LLMG ####[facility] LABCLIA [id number] [place] [id number] [place] HCO3 (Bld) [Moles/Vol] 20 mmol/L Low 22-26 [facility] Comment on above: Order Comment: Speci men Type: ARTERIAL BLOOD SPECIMENOrdering Facility: [facility] Address: [address] [place] [address] Performed By: #### A LLMG ####[facility] LABCLIA [id number] [address] [address] [place] Hematocrit (Bld) [Volume fraction] 24.9 % Low 36.0-46.0 [facility] Comment on above: Order Comment: Speci men Type: ARTERIAL BLOOD SPECIMENOrdering Facility: [facility] Address: [address] [place] [address] Performed By: #### A LLMG ####[facility] [id number] [place] [address] [place] Hemoglobin (Bld) [Mass/Vol] 8.0 g/dL Low 11.5-15.5 [facility] Comment on above: Order Comment: Speci men Type: ARTERIAL BLOOD SPECIMENOrdering Facility: [facility] Address: [address] [place] [address] Performed By: #### A LLMG ####[facility] [id number] [place] [address] [place] Lactate [Moles/Vol] 3.0 mmol/L High 0.5-2.2 [facility] Comment on above: Order Comment: Speci men Type: ARTERIAL BLOOD SPECIMENOrdering Facility: [facility] Address: [address] [place] [address] Performed By: #### A LLMG ####[facility] [id number] [place] [address] [place] Magnesium [Moles/Vol] 0.55 mmol/L Normal 0.45-0.60 [facility] Comment on above: Order Comment: Speci men Type: ARTERIAL BLOOD SPECIMENOrdering Facility: [facility] Address: [address] [place] [address] Performed By: #### A LLMG ####[facility] [id number] [place] [address] [place] Methemoglobin (Bld) [Mass fraction] 1.2 % Normal 0.0-1.5 [facility] Comment on above: Order Comment: Speci men Type: ARTERIAL BLOOD SPECIMENOrdering Facility: [facility] Address: [address] [place] [address] Performed By: #### A LLMG ####[facility] LABCLIA [id number] [address] [address] [place] Oxygen (Bld) [Partial pressure] 144 mm Hg High 85-95 [facility] Comment on above: Order Comment: Speci men Type: ARTERIAL BLOOD SPECIMENOrdering Facility: [facility] Address: [address] [place] [address] Performed By: #### A LLMG ####[facility] LABCLIA [id number] [address] [address] [place] Oxygen adjusted to patient's actual temperature (Bld) [Partial pressure] 144 mmHg High 85-95 [facility] Comment on above: Order Comment: Speci men Type: ARTERIAL BLOOD SPECIMENOrdering Facility: [facility] Address: [address] [place] [address] Performed By: #### A LLMG ####[facility] LABCLIA [id number] [place] [id number] [place] Oxyhemoglobin (BldA) [Mass fraction] 96 % Normal 95-98 [facility] Comment on above: Order Comment: Speci men Type: ARTERIAL BLOOD SPECIMENOrdering Facility: [facility] Address: [address] [place] [address] Performed By: #### A LLMG ####[facility] LABCLIA [id number] [place] [id number] [place] pH (Bld) 7.36 [pH] Normal 7.35-7.45 [facility] Comment on above: Order Comment: Speci men Type: ARTERIAL BLOOD SPECIMENOrdering Facility: [facility] Address: [address] [place] [address] Performed By: #### A LLMG ####[facility] LABCLIA [id number] [address] [address] [place] pH adjusted to patient's actual temperature (Bld) 7.36 Normal 7.35-7.45 [facility] Comment on above: Order Comment: Speci men Type: ARTERIAL BLOOD SPECIMENOrdering Facility: [facility] Address: [address] [place] [address] Performed By: #### A LLMG ####[facility] LABIA [id number] [place] [address] [place] Potassium [Moles/Vol] 4.3 mmol/L Normal 3.5-5.0 [facility] Comment on above: Order Comment: Speci men Type: ARTERIAL BLOOD SPECIMENOrdering Facility: [facility] Address: [address] [place] [address] Performed By: #### A LLMG ####[facility] LABIA [id number] [place] [address] [place] Sodium [Moles/Vol] 140 mmol/L Normal 136-144 [facility] Comment on above: Order Comment: Speci men Type: ARTERIAL BLOOD SPECIMENOrdering Facility: [facility] Address: [address] [place] [address] Performed By: #### A LLMG ####[facility] LABIA [id number] [place] [address] [place] Base deficit (BldA) [Moles/Vol] -4 mmol/L Low -2-0 [facility] Comment on above: Order Comment: Speci men Type: ARTERIAL BLOOD SPECIMENOrdering Facility: [facility] Address: [address] [place] [address] Performed By: #### A LLMG ####[facility] LABIA [id number] [place] [address] [place] Calcium.ionized (Bld) [Mass/Vol] 1.12 mmol/L Normal 1.08-1.30 [facility] Comment on above: Order Comment: Speci men Type: ARTERIAL BLOOD SPECIMENOrdering Facility: [facility] Address: [address] [place] [address] Performed By: #### A LLMG ####[facility] LABCLIA [id number] [place] [address] [place] Calcium.ionized adjusted to pH 7.4 (BldA) [Moles/Vol] 1.10 mmol/L Normal 1.08-1.30 [facility] Comment on above: Order Comment: Speci men Type: ARTERIAL BLOOD SPECIMENOrdering Facility: [facility] Address: [address] [place] [address] Performed By: #### A LLMG ####[facility] LABIA [id number] [place] [address] [place] Carboxyhemoglobin (BldA) [Mass fraction] 2.0 % Normal 0.0-2.0 [facility] Comment on above: Order Comment: Speci men Type: ARTERIAL BLOOD SPECIMENOrdering Facility: [facility] Address: [address] [place] [address] Result Comment: Carb oxyhemoglobin Reference Range for Smokers: 2.0-8.0% Performed By: #### A LLMG ####[facility] LABCLIA [id number] [place] [address] [place] CO2 (Bld) [Partial pressure] 37 mm Hg Normal 36-46 [facility] Comment on above: Order Comment: Speci men Type: ARTERIAL BLOOD SPECIMENOrdering Facility: [facility] Address: [address] [place] [address] Performed By: #### A LLMG ####[facility] LABCLIA [id number] [place] [id number] [place] CO2 adjusted to patient's actual temperature (Bld) [Partial pressure] 37 mmHg Normal 36-46 [facility] Comment on above: Order Comment: Speci men Type: ARTERIAL BLOOD SPECIMENOrdering Facility: [facility] Address: [address] [place] [address] Performed By: #### A LLMG ####[facility] LABCLIA [id number] [address] [address] [place] Glucose [Mass/Vol] 145 mg/dL High 60-105 [facility] Comment on above: Order Comment: Speci men Type: ARTERIAL BLOOD SPECIMENOrdering Facility: [facility] Address: [address] [place] [address] Performed By: #### A LLMG ####[facility] LABCLIA [id number] [place] [address] [place] HCO3 (Bld) [Moles/Vol] 21 mmol/L Low 22-26 [facility] Comment on above: Order Comment: Speci men Type: ARTERIAL BLOOD SPECIMENOrdering Facility: [facility] Address: [address] [place] [address] Performed By: #### A LLMG ####[facility] LABCLIA [id number] [place] [address] [place] Hematocrit (Bld) [Volume fraction] 24.5 % Low 36.0-46.0 [facility] Comment on above: Order Comment: Speci men Type: ARTERIAL BLOOD SPECIMENOrdering Facility: [facility] Address: [address] [place] [address] Performed By: #### A LLMG ####[facility] LABCLIA [id number] [place] [id number] [place] Hemoglobin (Bld) [Mass/Vol] 7.9 g/dL Low 11.5-15.5 [facility] Comment on above: Order Comment: Speci men Type: ARTERIAL BLOOD SPECIMENOrdering Facility: [facility] Address: [address] [place] [address] Performed By: #### A LLMG ####[facility] LABCLIA [id number] [place] [id number] [place] Lactate [Moles/Vol] 3.0 mmol/L High 0.5-2.2 [facility] Comment on above: Order Comment: Speci men Type: ARTERIAL BLOOD SPECIMENOrdering Facility: [facility] Address: [address] [place] [address] Performed By: #### A LLMG ####[facility] LABCLIA [id number] [place] [id number] [place] Magnesium [Moles/Vol] 0.55 mmol/L Normal 0.45-0.60 [facility] Comment on above: Order Comment: Speci men Type: ARTERIAL BLOOD SPECIMENOrdering Facility: [facility] Address: [address] [place] [address] Performed By: #### A LLMG ####[facility] LABCLIA [id number] [place] [id number] [place] Methemoglobin (Bld) [Mass fraction] 0.7 % Normal 0.0-1.5 [facility] Comment on above: Order Comment: Speci men Type: ARTERIAL BLOOD SPECIMENOrdering Facility: [facility] Address: [address] [place] [address] Performed By: #### A LLMG ####[facility] LABCLIA [id number] [place] [id number] [place] Oxygen (Bld) [Partial pressure] 183 mm Hg High 85-95 [facility] Comment on above: Order Comment: Speci men Type: ARTERIAL BLOOD SPECIMENOrdering Facility: [facility] Address: [address] [place] [address] Performed By: #### A LLMG ####[facility] LABCLIA [id number] [address] [address] [place] Oxygen adjusted to patient's actual temperature (Bld) [Partial pressure] 183 mmHg High 85-95 [facility] Comment on above: Order Comment: Speci men Type: ARTERIAL BLOOD SPECIMENOrdering Facility: [facility] Address: [address] [place], [place] [address] Performed By: #### A LLMG ####[facility] LABCLIA [id number] [address] [address] [place] Oxyhemoglobin (BldA) [Mass fraction] 97 % Normal 95-98 [facility] Comment on above: Order Comment: Speci men Type: ARTERIAL BLOOD SPECIMENOrdering Facility: [facility] Address: [address] [place] [address] Performed By: #### A LLMG ####[facility] LABCLIA [id number] [place] [address] [place] pH (Bld) 7.36 [pH] Normal 7.35-7.45 [facility] Comment on above: Order Comment: Speci men Type: ARTERIAL BLOOD SPECIMENOrdering Facility: [facility] Address: [address] [place] [address] Performed By: #### A LLMG ####[facility] LABCLIA [id number] [place] [address] [place] pH adjusted to patient's actual temperature (Bld) 7.36 Normal 7.35-7.45 [facility] Comment on above: Order Comment: Speci men Type: ARTERIAL BLOOD SPECIMENOrdering Facility: [facility] Address: [address] [place] [address] Performed By: #### A LLMG ####[facility] LABCLIA [id number] [place] [id number] [place] Potassium [Moles/Vol] 4.3 mmol/L Normal 3.5-5.0 [facility] Comment on above: Order Comment: Speci men Type: ARTERIAL BLOOD SPECIMENOrdering Facility: [facility] Address: [address] [place], [place] [address] Performed By: #### A LLMG ####[facility] LABCLIA [id number] [place] [id number] [place] Sodium [Moles/Vol] 139 mmol/L Normal 136-144 [facility] Comment on above: Order Comment: Speci men Type: ARTERIAL BLOOD SPECIMENOrdering Facility: [facility] Address: [address] [place] [address] Performed By: #### A LLMG ####[facility] LABIA [id number] [place] [address] [place] Base deficit (BldA) [Moles/Vol] -5 mmol/L Low -2-0 [facility] Comment on above: Order Comment: Speci men Type: ARTERIAL BLOOD SPECIMENOrdering Facility: [facility] Address: [address] [place] [address] Performed By: #### A LLMG ####[facility] [id number] [place] [address] [place] Calcium.ionized (Bld) [Mass/Vol] 1.20 mmol/L Normal 1.08-1.30 [facility] Comment on above: Order Comment: Speci men Type: ARTERIAL BLOOD SPECIMENOrdering Facility: [facility] Address: [address] [place] [address] Performed By: #### A LLMG ####[facility] [id number] [place] [address] [place] Calcium.ionized adjusted to pH 7.4 (BldA) [Moles/Vol] 1.17 mmol/L Normal 1.08-1.30 [facility] Comment on above: Order Comment: Speci men Type: ARTERIAL BLOOD SPECIMENOrdering Facility: [facility] Address: [address] [place] [address] Performed By: #### A LLMG ####[facility] [id number] [place] [address] [place] Carboxyhemoglobin (BldA) [Mass fraction] 2.1 % High 0.0-2.0 [facility] Comment on above: Order Comment: Speci men Type: ARTERIAL BLOOD SPECIMENOrdering Facility: [facility] Address: [address] [place] [address] Result Comment: Carb oxyhemoglobin Reference Range for Smokers: 2.0-8.0% Performed By: #### A LLMG ####[facility] LABCLIA [id number] [place] [address] [place] CO2 (Bld) [Partial pressure] 37 mm Hg Normal 36-46 [facility] Comment on above: Order Comment: Speci men Type: ARTERIAL BLOOD SPECIMENOrdering Facility: [facility] Address: [address] [place] [address] Performed By: #### A LLMG ####[facility] LABCLIA [id number] [place] [address] [place] CO2 adjusted to patient's actual temperature (Bld) [Partial pressure] 37 mmHg Normal 36-46 [facility] Comment on above: Order Comment: Speci men Type: ARTERIAL BLOOD SPECIMENOrdering Facility: [facility] Address: [address] [place] [address] Performed By: #### A LLMG ####[facility] LABCLIA [id number] [place] [address] [place] Glucose [Mass/Vol] 149 mg/dL High 60-105 [facility] Comment on above: Order Comment: Speci men Type: ARTERIAL BLOOD SPECIMENOrdering Facility: [facility] Address: [address] [place] [address] Performed By: #### A LLMG ####[facility] LABCLIA [id number] [place] [address] [place] HCO3 (Bld) [Moles/Vol] 19 mmol/L Low 22-26 [facility] Comment on above: Order Comment: Speci men Type: ARTERIAL BLOOD SPECIMENOrdering Facility: [facility] Address: [address] [place] [address] Performed By: #### A LLMG ####[facility] LABCLIA [id number] [place] [address] [place] Hematocrit (Bld) [Volume fraction] 27.8 % Low 36.0-46.0 [facility] Comment on above: Order Comment: Speci men Type: ARTERIAL BLOOD SPECIMENOrdering Facility: [facility] Address: [address] [place] [address] Performed By: #### A LLMG ####[facility] LABIA [id number] [place] [address] [place] Hemoglobin (Bld) [Mass/Vol] 9.0 g/dL Low 11.5-15.5 [facility] Comment on above: Order Comment: Speci men Type: ARTERIAL BLOOD SPECIMENOrdering Facility: [facility] Address: [address] [place] [address] Performed By: #### A LLMG ####[facility] LABIA [id number] [place] [address] [place] Lactate [Moles/Vol] 3.3 mmol/L High 0.5-2.2 [facility] Comment on above: Order Comment: Speci men Type: ARTERIAL BLOOD SPECIMENOrdering Facility: [facility] Address: [address] [place] [address] Performed By: #### A LLMG ####[facility] LABIA [id number] [place] [address] [place] Magnesium [Moles/Vol] 0.63 mmol/L High 0.45-0.60 [facility] Comment on above: Order Comment: Speci men Type: ARTERIAL BLOOD SPECIMENOrdering Facility: [facility] Address: [address] [place] [address] Performed By: #### A LLMG ####[facility] LABIA [id number] [place] [address] [place] Methemoglobin (Bld) [Mass fraction] 0.4 % Normal 0.0-1.5 [facility] Comment on above: Order Comment: Speci men Type: ARTERIAL BLOOD SPECIMENOrdering Facility: [facility] Address: [address] [place] [address] Performed By: #### A LLMG ####[facility] LABCLIA [id number] [address] [address] [place] Oxygen (Bld) [Partial pressure] 185 mm Hg High 85-95 [facility] Comment on above: Order Comment: Speci men Type: ARTERIAL BLOOD SPECIMENOrdering Facility: [facility] Address: [address] [place] [address] Performed By: #### A LLMG ####[facility] LABCLIA [id number] [address] [address] [place] Oxygen adjusted to patient's actual temperature (Bld) [Partial pressure] 185 mmHg High 85-95 [facility] Comment on above: Order Comment: Speci men Type: ARTERIAL BLOOD SPECIMENOrdering Facility: [facility] Address: [address] [place] [address] Performed By: #### A LLMG ####[facility] LABCLIA [id number] [place] [id number] [place] Oxyhemoglobin (BldA) [Mass fraction] 97 % Normal 95-98 [facility] Comment on above: Order Comment: Speci men Type: ARTERIAL BLOOD SPECIMENOrdering Facility: [facility] Address: [address] [place] [address] Performed By: #### A LLMG ####[facility] LABCLIA [id number] [place] [id number] [place] pH (Bld) 7.35 [pH] Normal 7.35-7.45 [facility] Comment on above: Order Comment: Speci men Type: ARTERIAL BLOOD SPECIMENOrdering Facility: [facility] Address: [address] [place] [address] Performed By: #### A LLMG ####[facility] LABCLIA [id number] [place] [id number] [place] pH adjusted to patient's actual temperature (Bld) 7.35 Normal 7.35-7.45 [facility] Comment on above: Order Comment: Speci men Type: ARTERIAL BLOOD SPECIMENOrdering Facility: [facility] Address: [address] [place] [address] Performed By: #### A LLMG ####[facility] LABIA [id number] [place] [address] [place] Potassium [Moles/Vol] 4.7 mmol/L Normal 3.5-5.0 [facility] Comment on above: Order Comment: Speci men Type: ARTERIAL BLOOD SPECIMENOrdering Facility: [facility] Address: [address] [place] [address] Performed By: #### A LLMG ####[facility] LABIA [id number] [place] [address] [place] Sodium [Moles/Vol] 138 mmol/L Normal 136-144 [facility] Comment on above: Order Comment: Speci men Type: ARTERIAL BLOOD SPECIMENOrdering Facility: [facility] Address: [address] [place] [address] Performed By: #### A LLMG ####[facility] LABIA [id number] [place] [address] [place] Base deficit (BldA) [Moles/Vol] -4 mmol/L Low -2-0 [facility] Comment on above: Order Comment: Speci men Type: ARTERIAL BLOOD SPECIMENOrdering Facility: [facility] Address: [address] [place] [address] Performed By: #### A LLMG ####[facility] LABIA [id number] [place] [address] [place] Calcium.ionized (Bld) [Mass/Vol] 1.23 mmol/L Normal 1.08-1.30 [facility] Comment on above: Order Comment: Speci men Type: ARTERIAL BLOOD SPECIMENOrdering Facility: [facility] Address: [address] [place] [address] Performed By: #### A LLMG ####[facility] LABIA [id number] [place] [address] [place] Calcium.ionized adjusted to pH 7.4 (BldA) [Moles/Vol] 1.20 mmol/L Normal 1.08-1.30 [facility] Comment on above: Order Comment: Speci men Type: ARTERIAL BLOOD SPECIMENOrdering Facility: [facility] Address: [address] [place] [address] Performed By: #### A LLMG ####[facility] [id number] [place] [address] [place] Carboxyhemoglobin (BldA) [Mass fraction] 2.1 % High 0.0-2.0 [facility] Comment on above: Order Comment: Speci men Type: ARTERIAL BLOOD SPECIMENOrdering Facility: [facility] Address: [address] [place] [address] Result Comment: Carb oxyhemoglobin Reference Range for Smokers: 2.0-8.0% Performed By: #### A LLMG ####[facility] LABIA [id number] [place] [address] [place] CO2 (Bld) [Partial pressure] 37 mm Hg Normal 36-46 [facility] Comment on above: Order Comment: Speci men Type: ARTERIAL BLOOD SPECIMENOrdering Facility: [facility] Address: [address] [place] [address] Performed By: #### A LLMG ####[facility] LABIA [id number] [place] [address] [place] CO2 adjusted to patient's actual temperature (Bld) [Partial pressure] 37 mmHg Normal 36-46 [facility] Comment on above: Order Comment: Speci men Type: ARTERIAL BLOOD SPECIMENOrdering Facility: [facility] Address: [address] [place] [address] Performed By: #### A LLMG ####[facility] LABCLIA [id number] [place] [id number] [place] Glucose [Mass/Vol] 154 mg/dL High 60-105 [facility] Comment on above: Order Comment: Speci men Type: ARTERIAL BLOOD SPECIMENOrdering Facility: [facility] Address: [address] [place] [address] Performed By: #### A LLMG ####[facility] LABCLIA [id number] [place] [address] [place] HCO3 (Bld) [Moles/Vol] 20 mmol/L Low 22-26 [facility] Comment on above: Order Comment: Speci men Type: ARTERIAL BLOOD SPECIMENOrdering Facility: [facility] Address: [address] [place] [address] Performed By: #### A LLMG ####[facility] LABCLIA [id number] [place] [address] [place] Hematocrit (Bld) [Volume fraction] 29.2 % Low 36.0-46.0 [facility] Comment on above: Order Comment: Speci men Type: ARTERIAL BLOOD SPECIMENOrdering Facility: [facility] Address: [address] [place] [address] Performed By: #### A LLMG ####[facility] LABCLIA [id number] [place] [address] [place] Hemoglobin (Bld) [Mass/Vol] 9.4 g/dL Low 11.5-15.5 [facility] Comment on above: Order Comment: Speci men Type: ARTERIAL BLOOD SPECIMENOrdering Facility: [facility] Address: [address] [place] [address] Performed By: #### A LLMG ####[facility] LABCLIA [id number] [place] [id number] [place] Lactate [Moles/Vol] 2.2 mmol/L Normal 0.5-2.2 [facility] Comment on above: Order Comment: Speci men Type: ARTERIAL BLOOD SPECIMENOrdering Facility: [facility] Address: [address] [place] [address] Performed By: #### A LLMG ####[facility] LABCLIA [id number] [address] [address] [place] Magnesium [Moles/Vol] 0.67 mmol/L High 0.45-0.60 [facility] Comment on above: Order Comment: Speci men Type: ARTERIAL BLOOD SPECIMENOrdering Facility: [facility] Address: [address] [place] [address] Performed By: #### A LLMG ####[facility] LABCLIA [id number] [place] [id number] [place] Methemoglobin (Bld) [Mass fraction] 0.4 % Normal 0.0-1.5 [facility] Comment on above: Order Comment: Speci men Type: ARTERIAL BLOOD SPECIMENOrdering Facility: [facility] Address: [address] [place], [place] [address] Performed By: #### A LLMG ####[facility] LABCLIA [id number] [address] [address] [place] Oxygen (Bld) [Partial pressure] 209 mm Hg High 85-95 [facility] Comment on above: Order Comment: Speci men Type: ARTERIAL BLOOD SPECIMENOrdering Facility: [facility] Address: [address] [place] [address] Performed By: #### A LLMG ####[facility] LABCLIA [id number] [address] [address] [place] Oxygen adjusted to patient's actual temperature (Bld) [Partial pressure] 209 mmHg High 85-95 [facility] Comment on above: Order Comment: Speci men Type: ARTERIAL BLOOD SPECIMENOrdering Facility: [facility] Address: [address] [place], [place] [address] Performed By: #### A LLMG ####[facility] LABCLIA [id number] [place] [id number] [place] Oxyhemoglobin (BldA) [Mass fraction] 98 % Normal 95-98 [facility] Comment on above: Order Comment: Speci men Type: ARTERIAL BLOOD SPECIMENOrdering Facility: [facility] Address: [address] [place] [address] Performed By: #### A LLMG ####[facility] LABCLIA [id number] [place] [address] [place] pH (Bld) 7.35 [pH] Normal 7.35-7.45 [facility] Comment on above: Order Comment: Speci men Type: ARTERIAL BLOOD SPECIMENOrdering Facility: [facility] Address: [address] [place] [address] Performed By: #### A LLMG ####[facility] LABIA [id number] [place] [address] [place] pH adjusted to patient's actual temperature (Bld) 7.35 Normal 7.35-7.45 [facility] Comment on above: Order Comment: Speci men Type: ARTERIAL BLOOD SPECIMENOrdering Facility: [facility] Address: [address] [place] [address] Performed By: #### A LLMG ####[facility] LABIA [id number] [place] [address] [place] Potassium [Moles/Vol] 4.7 mmol/L Normal 3.5-5.0 [facility] Comment on above: Order Comment: Speci men Type: ARTERIAL BLOOD SPECIMENOrdering Facility: [facility] Address: [address] [place] [address] Performed By: #### A LLMG ####[facility] LABIA [id number] [place] [id number] [place] Sodium [Moles/Vol] 136 mmol/L Normal 136-144 [facility] Comment on above: Order Comment: Speci men Type: ARTERIAL BLOOD SPECIMENOrdering Facility: [facility] Address: [address] [place] [address] Performed By: #### A LLMG ####[facility] LABIA [id number] [place] [address] [place] Base deficit (BldA) [Moles/Vol] -4 mmol/L Low -2-0 [facility] Comment on above: Order Comment: Speci men Type: ARTERIAL BLOOD SPECIMENOrdering Facility: [facility] Address: [address] [place] [address] Performed By: #### A LLMG ####[facility] [id number] [place] [address] [place] Calcium.ionized (Bld) [Mass/Vol] 1.28 mmol/L Normal 1.08-1.30 [facility] Comment on above: Order Comment: Speci men Type: ARTERIAL BLOOD SPECIMENOrdering Facility: [facility] Address: [address] [place] [address] Performed By: #### A LLMG ####[facility] [id number] [place] [address] [place] Calcium.ionized adjusted to pH 7.4 (BldA) [Moles/Vol] 1.22 mmol/L Normal 1.08-1.30 [facility] Comment on above: Order Comment: Speci men Type: ARTERIAL BLOOD SPECIMENOrdering Facility: [facility] Address: [address] [place] [address] Performed By: #### A LLMG ####[facility] [id number] [place] [id number] [place] Carboxyhemoglobin (BldA) [Mass fraction] 1.9 % Normal 0.0-2.0 [facility] Comment on above: Order Comment: Speci men Type: ARTERIAL BLOOD SPECIMENOrdering Facility: [facility] Address: [address] [place] [address] Result Comment: Carb oxyhemoglobin Reference Range for Smokers: 2.0-8.0% Performed By: #### A LLMG ####[facility] LABCLIA [id number] [place] [address] [place] CO2 (Bld) [Partial pressure] 43 mm Hg Normal 36-46 [facility] Comment on above: Order Comment: Speci men Type: ARTERIAL BLOOD SPECIMENOrdering Facility: [facility] Address: [address] [place] [address] Performed By: #### A LLMG ####[facility] LABCLIA [id number] [place] [address] [place] CO2 adjusted to patient's actual temperature (Bld) [Partial pressure] 43 mmHg Normal 36-46 [facility] Comment on above: Order Comment: Speci men Type: ARTERIAL BLOOD SPECIMENOrdering Facility: [facility] Address: [address] [place] [address] Performed By: #### A LLMG ####[facility] LABCLIA [id number] [place] [address] [place] Glucose [Mass/Vol] 109 mg/dL High 60-105 [facility] Comment on above: Order Comment: Speci men Type: ARTERIAL BLOOD SPECIMENOrdering Facility: [facility] Address: [address] [place] [address] Performed By: #### A LLMG ####[facility] LABCLIA [id number] [place] [id number] [place] HCO3 (Bld) [Moles/Vol] 22 mmol/L Normal 22-26 [facility] Comment on above: Order Comment: Speci men Type: ARTERIAL BLOOD SPECIMENOrdering Facility: [facility] Address: [address] [place] [address] Performed By: #### A LLMG ####[facility] LABCLIA [id number] [place] [address] [place] Hematocrit (Bld) [Volume fraction] 27.5 % Low 36.0-46.0 [facility] Comment on above: Order Comment: Speci men Type: ARTERIAL BLOOD SPECIMENOrdering Facility: [facility] Address: [address] [place] [address] Performed By: #### A LLMG ####[facility] LABIA [id number] [place] [address] [place] Hemoglobin (Bld) [Mass/Vol] 8.9 g/dL Low 11.5-15.5 [facility] Comment on above: Order Comment: Speci men Type: ARTERIAL BLOOD SPECIMENOrdering Facility: [facility] Address: [address] [place] [address] Performed By: #### A LLMG ####[facility] LABCLIA [id number] [place] [address] [place] Lactate [Moles/Vol] 1.5 mmol/L Normal 0.5-2.2 [facility] Comment on above: Order Comment: Speci men Type: ARTERIAL BLOOD SPECIMENOrdering Facility: [facility] Address: [address] [place] [address] Performed By: #### A LLMG ####[facility] LABIA [id number] [place] [address] [place] Magnesium [Moles/Vol] 0.67 mmol/L High 0.45-0.60 [facility] Comment on above: Order Comment: Speci men Type: ARTERIAL BLOOD SPECIMENOrdering Facility: [facility] Address: [address] [place] [address] Performed By: #### A LLMG ####[facility] LABCLIA [id number] [place] [id number] [place] Methemoglobin (Bld) [Mass fraction] 1.3 % Normal 0.0-1.5 [facility] Comment on above: Order Comment: Speci men Type: ARTERIAL BLOOD SPECIMENOrdering Facility: [facility] Address: [address] [place] [address] Performed By: #### A LLMG ####[facility] LABCLIA [id number] [address] [address] [place] Oxygen (Bld) [Partial pressure] 178 mm Hg High 85-95 [facility] Comment on above: Order Comment: Speci men Type: ARTERIAL BLOOD SPECIMENOrdering Facility: [facility] Address: [address] [place] [address] Performed By: #### A LLMG ####[facility] LABCLIA [id number] [place] [address] [place] Oxygen adjusted to patient's actual temperature (Bld) [Partial pressure] 178 mmHg High 85-95 [facility] Comment on above: Order Comment: Speci men Type: ARTERIAL BLOOD SPECIMENOrdering Facility: [facility] Address: [address] [place] [address] Performed By: #### A LLMG ####[facility] LABCLIA [id number] [place] [address] [place] Oxyhemoglobin (BldA) [Mass fraction] 96 % Normal 95-98 [facility] Comment on above: Order Comment: Speci men Type: ARTERIAL BLOOD SPECIMENOrdering Facility: [facility] Address: [address] [place] [address] Performed By: #### A LLMG ####[facility] LABCLIA [id number] [address] [address] [place] pH (Bld) 7.32 [pH] Low 7.35-7.45 [facility] Comment on above: Order Comment: Speci men Type: ARTERIAL BLOOD SPECIMENOrdering Facility: [facility] Address: [address] [place], [place] [address] Performed By: #### A LLMG ####[facility] LABCLIA [id number] [place] [id number] [place] pH adjusted to patient's actual temperature (Bld) 7.32 Low 7.35-7.45 [facility] Comment on above: Order Comment: Speci men Type: ARTERIAL BLOOD SPECIMENOrdering Facility: [facility] Address: [address] [place] [address] Performed By: #### A LLMG ####[facility] LABCLIA [id number] [place] [address] [place] Potassium [Moles/Vol] 4.2 mmol/L Normal 3.5-5.0 [facility] Comment on above: Order Comment: Speci men Type: ARTERIAL BLOOD SPECIMENOrdering Facility: [facility] Address: [address] [place] [address] Performed By: #### A LLMG ####[facility] LABCLIA [id number] [place] [address] [place] Sodium [Moles/Vol] 138 mmol/L Normal 136-144 [facility] Comment on above: Order Comment: Speci men Type: ARTERIAL BLOOD SPECIMENOrdering Facility: [facility] Address: [address] [place] [address] Performed By: #### A LLMG ####[facility] LABCLIA [id number] [place] [id number] [place] BRIEF OP NOTon 12-12-2024 BRIEF OP NOT Normal [facility] CASE MANAGEMon 12-12-2024 CASE MANAGEM Normal [facility] CBC panel Auto (Bld)on 12-12 Erythrocyte distribution width (RBC) [Ratio] 22.2 % High 11.5-15.0 [facility] Comment on above: Order Comment: Speci men Type: BLOOD SPECIMENOrdering Facility: [facility] Address: [address] [place] [address] Performed By: #### 5 8410-2 ####[facility] LABCLIA [id number] [place] [address] [place] Hematocrit (Bld) [Volume fraction] 28.3 % Low 36.0-46.0 [facility] Comment on above: Order Comment: Speci men Type: BLOOD SPECIMENOrdering Facility: [facility] Address: [address] [place] [address] Performed By: #### 5 8410-2 ####[facility] LABIA [id number] [place] [address] [place] Hemoglobin (Bld) [Mass/Vol] 8.6 g/dL Low 11.5-15.5 [facility] Comment on above: Order Comment: Speci men Type: BLOOD SPECIMENOrdering Facility: [facility] Address: [address] [place] [address] Performed By: #### 5 8410-2 ####[facility] LABCLIA [id number] [place] [address] [place] MCH (RBC) [Entitic mass] 26.4 pg Normal 26.0-34.0 [facility] Comment on above: Order Comment: Speci men Type: BLOOD SPECIMENOrdering Facility: [facility] Address: [address] [place] [address] Performed By: #### 5 8410-2 ####[facility] LABIA [id number] [place] [address] [place] MCHC (RBC) [Mass/Vol] 30.4 g/dL Low 30.5-36.0 [facility] Comment on above: Order Comment: Speci men Type: BLOOD SPECIMENOrdering Facility: [facility] Address: [address] [place] [address] Performed By: #### 5 8410-2 ####[facility] LABCLIA [id number] [place] [address] [place] MCV (RBC) [Entitic vol] 86.8 fL Normal 80.0-100.0 [facility] [facility] Comment on above: Order Comment: Speci men Type: BLOOD SPECIMENOrdering Facility: [facility] Address: [address] [place] [address] Performed By: #### 5 8410-2 ####[facility] LABIA [id number] [address] [address] [place] Nucleated RBC (Bld) [#/Vol] 0.02 10*3/uL High <0.01 [facility] Comment on above: Order Comment: Speci men Type: BLOOD SPECIMENOrdering Facility: [facility] Address: [address] [place] [address] Performed By: #### 5 8410-2 ####[facility] LABIA [id number] [place] [address] [place] Platelet mean volume (Bld) [Entitic vol] 9.3 fL Normal 9.0-12.7 [facility] Comment on above: Order Comment: Speci men Type: BLOOD SPECIMENOrdering Facility: [facility] Address: [address] [place] [address] Performed By: #### 5 8410-2 ####[facility] LABIA [id number] [place] [address] [place] Platelets (Bld) [#/Vol] 292 10*3/uL Normal 150-400 [facility] Comment on above: Order Comment: Speci men Type: BLOOD SPECIMENOrdering Facility: [facility] Address: [address] [place] [address] Performed By: #### 5 8410-2 ####[facility] LABIA [id number] [place] [id number] [place] RBC (Bld) [#/Vol] 3.26 10*6/uL Low 3.90-5.20 [facility] Comment on above: Order Comment: Speci men Type: BLOOD SPECIMENOrdering Facility: [facility] Address: [address] [place] [address] Performed By: #### 5 8410-2 ####[facility] LABIA [id number] [address] [address] [place] WBC (Bld) [#/Vol] 6.93 10*3/uL Normal 3.70-11.00 [facility] Comment on above: Order Comment: Speci men Type: BLOOD SPECIMENOrdering Facility: [facility] Address: [address] [place] [address] Performed By: #### 5 8410-2 ####[facility] LABIA [id number] [place] [address] [place] [facility] Comprehensive metabolic 2000 panelon 12-12-2024 Albumin [Mass/Vol] 3.2 g/dL Low 3.9-4.9 [facility] Comment on above: Order Comment: Speci men Type: BLOOD SPECIMENOrdering Facility: [facility] Address: [address] [place] [address] Performed By: #### 2 4323-8, , 2776- ####[facility] LABIA [id number] [place] [address] [place] ALP [Catalytic activity/Vol] 173 U/L High 34-123 [facility] Comment on above: Order Comment: Speci men Type: BLOOD SPECIMENOrdering Facility: [facility] Address: [address] [place] [address] Performed By: #### 2 4323-8, , 2776- ####[facility] LABIA [id number] [place] [id number] [place] ALT [Catalytic activity/Vol] 41 U/L High 7-38 [facility] Comment on above: Order Comment: Speci men Type: BLOOD SPECIMENOrdering Facility: [facility] Address: [address] [place] [address] Performed By: #### 2 4323-8, , 2776-06 ####[facility] LABCLIA [id number] [facility] [address] [address] [place] Anion gap [Moles/Vol] 12 mmol/L Normal 8-15 [facility] Comment on above: Order Comment: Speci men Type: BLOOD SPECIMENOrdering Facility: [facility] Address: [address] [place], [place] [address] Performed By: #### 2 4323-8, , 2776-06 ####[facility] LABCLIA [id number] [facility] [address] [address] [place] AST [Catalytic activity/Vol] 33 U/L Normal 13-35 [facility] Comment on above: Order Comment: Speci men Type: BLOOD SPECIMENOrdering Facility: [facility] Address: [address] [place] [address] Result Comment: Resu lts may be falsely increased due to interference from hemolysis. Suggest reorder as clinically indicated. Performed By: #### 2 4323-8, , 2776-06 ####[facility] LABCLIA [id number] [address] [address] [place] Bilirubin [Mass/Vol] 0.5 mg/dL Normal 0.2-1.3 [facility] Comment on above: Order Comment: Speci men Type: BLOOD SPECIMENOrdering Facility: [facility] Address: [address] [place] [address] Performed By: #### 2 4323-8, , 2776-06 ####[facility] LABIA [id number] [facility] [address] [address] [place] Calcium [Mass/Vol] 8.7 mg/dL Normal 8.5-10.2 [facility] Comment on above: Order Comment: Speci men Type: BLOOD SPECIMENOrdering Facility: [facility] Address: [address] [place], [place] [address] Performed By: #### 2 4323-8, , 2776-06 ####[facility] LABIA [id number] [address] [address] [place] Chloride [Moles/Vol] 105 mmol/L Normal 98-107 [facility] Comment on above: Order Comment: Speci men Type: BLOOD SPECIMENOrdering Facility: [facility] Address: [address] [place] [address] Performed By: #### 2 4323-8, , 2776-06 ####[facility] LABIA [id number] [address] [address] [place] CO2 [Moles/Vol] 20 mmol/L Low 22-30 [facility] Comment on above: Order Comment: Speci men Type: BLOOD SPECIMENOrdering Facility: [facility] Address: [address] [place] [address] Performed By: #### 2 4323-8, , 2776-06 ####[facility] LABIA [id number] [address] [address] [place] Creatinine [Mass/Vol] 0.82 mg/dL Normal 0.58-0.96 [facility] Comment on above: Order Comment: Speci men Type: BLOOD SPECIMENOrdering Facility: [facility] Address: [address] [place] [address] Performed By: #### 2 4323-8, , 2776-06 ####[facility] [id number] [address] [address] [place] Creatinine and Glomerular filtration rate.predicted panel (S/P/Bld) 92 mL/min/1.73m??? Normal >=60 [facility] Comment on above: Order Comment: Speci men Type: BLOOD SPECIMENOrdering Facility: [facility] Address: [address] [place] [address] Result Comment: Zeny mated Glomerular Filtration Rate (eGFR) is calculated using the 2020 CKD-EPI creatinine equation. This equation utilizes serum creatinine, sex, and age as parameters. The creatinine assay has traceable calibration to isotope dilution-mass spectrometry. Refer to KDIGO guidelines for clinical interpretation. In patients with unstable renal function, e.g. those with acute kidney injury, the eGFR may not accurately reflect actual GFR. Performed By: #### 2 4323-8, , 2776-06 ####[facility] LABCLIA [id number] [address] [address] [place] Glucose [Mass/Vol] 100 mg/dL High 74-99 [facility] Comment on above: Order Comment: Dora finch Type: BLOOD SPECIMENOrdering Facility: [facility] Address: [address] [place] [address] Result Comment: The [place] [employer] (ADA) provides guidance for cutoff values for fasting glucose and random glucose. The ADA defines fasting as no caloric intake for at least 8 hours. Fasting plasma glucose results between 100 to 125 mg/dL indicate increased risk for diabetes (prediabetes).Fasting plasma glucose results greater than or equal to 126 mg/dL meet the criteria for diagnosis of diabetes. In the absence of unequivocal hyperglycemia, results should be confirmed by repeat testing. In a patient with classic symptoms of hyperglycemia or hyperglycemic crisis, random plasma glucose results greater than or equal to 200 mg/dL meet the criteria for diagnosis of diabetes.Reference: Standards of Medical Care in Diabetes 2016, [place] [employer]. Diabetes Care. 2016.39(Suppl 1). Performed By: #### 2 4323-8, , 2776-06 ####[facility] LABCLIA [id number] [address] [address] [place] Potassium [Moles/Vol] 4.4 mmol/L Normal 3.7-5.1 [facility] Comment on above: Order Comment: Dora finch Type: BLOOD SPECIMENOrdering Facility: [facility] Address: [address] [place] [address] Performed By: #### 2 4323-8, , 2776-06 ####[facility] LABCLIA [id number] [address] [address] [place] Protein [Mass/Vol] 6.4 g/dL Normal 6.3-8.0 [facility] Comment on above: Order Comment: Speci men Type: BLOOD SPECIMENOrdering Facility: [facility] Address: [address] [place] [address] Performed By: #### 2 4323-8, 59186-3, 2777-1 ####[facility] LABCLIA [id number] [place] [address] [place] Sodium [Moles/Vol] 137 mmol/L Normal 136-144 [facility] Comment on above: Order Comment: Speci men Type: BLOOD SPECIMENOrdering Facility: [facility] Address: [address] [place] [address] Performed By: #### 2 4323-8, 00617-9, 277-1 ####[facility] LABIA [id number] [place] [address] [place] Urea nitrogen [Mass/Vol] 20 mg/dL Normal 7-21 [facility] Comment on above: Order Comment: Speci men Type: BLOOD SPECIMENOrdering Facility: [facility] Address: [address] [place] [address] Performed By: #### 2 4323-8, 43920-1, 2776-1 ####[facility] LABIA [id number] [place] [address] [place] Lactate (Bld) [Moles/Vol]on 12-12-2024 Lactate [Moles/Vol] 5.2 mmol/L High 0.5-2.2 [facility] Comment on above: Order Comment: Speci men Type: BLOOD SPECIMENOrdering Facility: [facility] Address: [address] [place] [address] Performed By: #### 3 2693-4 ####[facility] LABCLIA [id number] [place] [id number] [place] Magnesium SerPl-mCncon 12-12 Magnesium [Mass/Vol] 1.8 mg/dL Normal 1.7-2.3 [facility] Comment on above: Order Comment: Speci stef Type: BLOOD SPECIMENOrdering Facility: [facility] Address: [address] [place] [address] Performed By: #### 2 4323-8, 38837-7, 2777-1 ####[facility] LABIA [id number] [place] [address] [place] OPERATIVE NOon 12-12-2024 OPERATIVE NO Normal [facility] PTT, ANTICOAGULANT THERAPYon 12-12-2024 aPTT Coag (PPP) [Time] 22.2 s Low 23.0-32.4 [facility] Comment on above: Order Comment: Speci stef Type: BLOOD SPECIMENOrdering Facility: [facility] Address: [address] [place] [address] Performed By: #### P TTAC ####[facility] LABIA [id number] [place] [address] [place] Pathology biopsy report Stan (Tiss)on 12-12-2024 AP DISCLAIMER Normal [facility] Comment on above: Order Comment: Dora finch Type: TISSUE SPECIMENOrdering Facility: [facility] Address: [address] [place] [address] Result Comment: Billie Diaz Test (LDT) Disclaimer:Performance characteristics of immunohistochemical, immunofluorescent, and chromogenic in-situ hybridization tests have been determined by the performing laboratory within [facility] Pathology and Laboratory Medicine Department ([facility], [facility], [facility], [facility], [facility], [facility], or [facility]) in a manner consistent with CLIA requirements. One or more of these tests may not have been cleared or approved by the FDA. [facility] is regulated under CLIA as qualified to perform high-complexity testing. These tests are used for clinical purposes. These should not be regarded as investigational or for research. Positive and negative controls stain appropriately. Performed By: #### 6 6121-5 ####[facility] LABCLIA [id number] [address] CASE REPORT Normal [facility] Comment on above: Order Comment: Speci men Type: TISSUE SPECIMENOrdering Facility: [facility] Address: [address] [place] [address] Result Comment: Surg ical Pathology Report Case: [id number] Provider: Kirit Devine MD Collected: 12/12/2024 10:48 AMOrdering Location: Admitting Received: 12/12/2024 03:06 PMPathologist: Kae Manning MDSpecimens: A) - Omentum, Resection, omentum B) - Small Bowel, Ileostomy, Loop ileostomy C) - Soft Tissue (Not otherwise specified), Peristomal Fat Performed By: #### 6 6121-5 ####[facility] LABIA [id number] [address] CLINICAL HISTORY Normal [facility] Comment on above: Order Comment: Speci men Type: TISSUE SPECIMENOrdering Facility: [facility] Address: [address] [place] [address] Result Comment: Pre- op diagnosis:High output ileostomy (HCC) [R19.8, Z93.2] Performed By: #### 6 6121-5 ####[facility] LABIA [id number] [address] FINAL DIAGNOSIS Normal [facility] Comment on above: Order Comment: Speci men Type: TISSUE SPECIMENOrdering Facility: [facility] Address: [address] [place] [address] Result Comment: A. O mentum, omentectomy:- Benign mature adipose tissue.B. Ileum, ileostomy takedown:- Enterocutaneous tissue with histologic features consistent with an ileostomy site.C. Soft tissue, peristomal fat, excision:- Fibroadipose tissue with fat necrosis. at 1624 EDT Performed By: #### 6 6121-5 ####[facility] LABCLIA [id number] [place] [address] [place] FINAL PERFORMING LAB Normal [facility] Comment on above: Order Comment: Speci men Type: TISSUE SPECIMENOrdering Facility: [facility] Address: [address] [place] [address] Result Comment: Diag nostic interpretation performed at: [facility], [address] [place] [address] CLIA# [id number] Director: Jaison Lema MD Performed By: #### 6 6121-5 ####[facility] LABCLIA [id number] [address] [facility] GROSS DESCRIPTION Normal [facility] Comment on above: Order Comment: Speci men Type: TISSUE SPECIMENOrdering Facility: [facility] Address: [address] [place] [address] Result Comment: A. O mentum, ResectionReceived fresh labeled omentum is a 15.0 x 14.0 x 1.0 cm aggregate of cunha-yellow, lobulated soft tissue consistent with omentum. No nodules are areas of induration are seen. Sectioning reveals yellow, homogeneous cut surfaces. Computer Project Manager section submitted in A1.B. Small Bowel, IleostomyReceived fresh labeled loop ileostomy is a 7.5 x 7.0 x 2.0 cm loop ileostomy specimen. The serosal surfaces is cunha-pink and focally roughened with attached adipose tissue. There is a 4.5 x 3.5 cm ostomy site with a rim of cunha-pink, granular skin. Opening reveals cunha-pink velvety mucosa with the usual intestinal folds. No polyps or mass lesions are identified. A contact representative section of the ostomy site is submitted in B1.C. Soft Tissue (Not otherwise specified)Received fresh labeled peristomal fat is a 4.0 x 3.5 x 2.0 cm cunha-yellow lobulated soft tissue fragment. Sectioning reveals cunha-yellow homogenous cut surfaces. No nodules or areas of induration are grossly appreciated. Computer Project Manager section submitted in C1.Gross examination performed at [facility], [address] [place], [place] [address]MSL/ARIELA 12/12/24 3:23 PM Performed By: #### 6 6121-5 ####[facility] LABIA [id number] [place] [address] [place] Phosphate SerPl-mCncon 12-12 Phosphate [Mass/Vol] 3.7 mg/dL Normal 2.7-4.8 [facility] Comment on above: Order Comment: Speci men Type: BLOOD SPECIMENOrdering Facility: [facility] Address: [address] [place] [address] Performed By: #### 2 4323-8, 63118-7, 2777-1 ####[facility] LABIA [id number] [place] [address] [place] CBC panel Auto (Bld)on 12-11 Erythrocyte distribution width (RBC) [Ratio] 22.3 % High 11.5-15.0 [facility] Comment on above: Order Comment: Speci men Type: BLOOD SPECIMENOrdering Facility: [facility] Address: [address] [place] [address] Performed By: #### 5 8410-2 ####[facility] LABIA [id number] [place] [address] [place] Hematocrit (Bld) [Volume fraction] 26.7 % Low 36.0-46.0 [facility] Comment on above: Order Comment: Speci men Type: BLOOD SPECIMENOrdering Facility: [facility] Address: [address] [place] [address] Performed By: #### 5 8410-2 ####[facility] LABIA [id number] [place] [id number] [place] Hemoglobin (Bld) [Mass/Vol] 8.3 g/dL Low 11.5-15.5 [facility] Comment on above: Order Comment: Speci men Type: BLOOD SPECIMENOrdering Facility: [facility] Address: [address] [place] [address] Performed By: #### 5 8410-2 ####[facility] [id number] [place] [address] [place] [facility] MCH (RBC) [Entitic mass] 28.0 pg Normal 26.0-34.0 [facility] Comment on above: Order Comment: Speci men Type: BLOOD SPECIMENOrdering Facility: [facility] Address: [address] [place] [address] Performed By: #### 5 8410-2 ####[facility] [id number] [place] [address] [place] MCHC (RBC) [Mass/Vol] 31.1 g/dL Normal 30.5-36.0 [facility] Comment on above: Order Comment: Speci men Type: BLOOD SPECIMENOrdering Facility: [facility] Address: [address] [place] [address] Performed By: #### 5 8410-2 ####[facility] [id number] [place] [address] [place] MCV (RBC) [Entitic vol] 90.2 fL Normal 80.0-100.0 [facility] Comment on above: Order Comment: Speci men Type: BLOOD SPECIMENOrdering Facility: [facility] Address: [address] [place] [address] Performed By: #### 5 8410-2 ####[facility] [id number] [place] [address] [place] Nucleated RBC (Bld) [#/Vol] 0.02 10*3/uL High <0.01 [facility] Comment on above: Order Comment: Speci men Type: BLOOD SPECIMENOrdering Facility: [facility] Address: [address] [place] [address] Performed By: #### 5 8410-2 ####[facility] LABCLIA [id number] [address] [place] [address] [place] Platelet mean volume (Bld) [Entitic vol] 11.2 fL Normal 9.0-12.7 [facility] Comment on above: Order Comment: Speci men Type: BLOOD SPECIMENOrdering Facility: [facility] Address: [address] [place] [address] Performed By: #### 5 8410-2 ####[facility] LABCLIA [id number] [address] [place] [address] [place] Platelets (Bld) [#/Vol] 301 10*3/uL Normal 150-400 [facility] Comment on above: Order Comment: Speci men Type: BLOOD SPECIMENOrdering Facility: [facility] Address: [address] [place] [address] Performed By: #### 5 8410-2 ####[facility] LABCLIA [id number] [address] [place] [address] [place] RBC (Bld) [#/Vol] 2.96 10*6/uL Low 3.90-5.20 [facility] Comment on above: Order Comment: Speci men Type: BLOOD SPECIMENOrdering Facility: [facility] Address: [address] [place] [address] Performed By: #### 5 8410-2 ####[facility] LABCLIA [id number] [address] [place] [address] [place] WBC (Bld) [#/Vol] 6.78 10*3/uL Normal 3.70-11.00 [facility] Comment on above: Order Comment: Speci men Type: BLOOD SPECIMENOrdering Facility: [facility] Address: [address] [place] [address] Performed By: #### 5 8410-2 ####[facility] LABCLIA [id number] [address] [place] [address] [place] CONSULT PROGon 12-11-2024 CONSULT PROG Normal [facility] CONSULT PROG Normal [facility] CONSULT PROG Normal [facility] Comprehensive metabolic 2000 panelon 12-11-2024 Albumin [Mass/Vol] 3.5 g/dL Low 3.9-4.9 [facility] Comment on above: Order Comment: Speci men Type: BLOOD SPECIMENOrdering Facility: [facility] Address: [address] [place], [place] [address] Performed By: #### 1 9123-9, 257-8, 277-, 75958-7 ####[facility] LABIA [id number] [place] [id number] [place] ALP [Catalytic activity/Vol] 205 U/L High 34-123 [facility] Comment on above: Order Comment: Speci men Type: BLOOD SPECIMENOrdering Facility: [facility] Address: [address] [place] [address] Performed By: #### 1 9123-9, 257-8, 27712-25, 65210-3 ####[facility] LABIA [id number] [place] [id number] [place] ALT [Catalytic activity/Vol] 45 U/L High 7-38 [facility] Comment on above: Order Comment: Speci men Type: BLOOD SPECIMENOrdering Facility: [facility] Address: [address] [place], [place] [address] Performed By: #### 1 9123-9, 257-8, 27712-25, 58316-3 ####[facility] LABIA [id number] [address] [address] [place] Anion gap [Moles/Vol] 12 mmol/L Normal 8-15 [facility] Comment on above: Order Comment: Speci men Type: BLOOD SPECIMENOrdering Facility: [facility] Address: [address] [place], [place] [address] Performed By: #### 1 9123-9, 2571-8, 2776-06, ####[facility] LABCLIA [id number] [address] [address] [place] AST [Catalytic activity/Vol] 38 U/L High 13-35 [facility] Comment on above: Order Comment: Speci men Type: BLOOD SPECIMENOrdering Facility: [facility] Address: [address] [place] [address] Performed By: #### 1 9123-9, 2578, 2776-06, ####[facility] LABIA [id number] [place] [id number] [place] Bilirubin [Mass/Vol] 0.5 mg/dL Normal 0.2-1.3 [facility] Comment on above: Order Comment: Speci men Type: BLOOD SPECIMENOrdering Facility: [facility] Address: [address] [place] [address] Performed By: #### 1 9123-9, 2578, 2776-06, ####[facility] LABIA [id number] [place] [id number] [place] Calcium [Mass/Vol] 9.3 mg/dL Normal 8.5-10.2 [facility] Comment on above: Order Comment: Speci men Type: BLOOD SPECIMENOrdering Facility: [facility] Address: [address] [place], [place] [address] Performed By: #### 1 9123-9, 2578, 2776-06, ####[facility] LABIA [id number] [place] [id number] [place] Chloride [Moles/Vol] 102 mmol/L Normal 98-107 [facility] Comment on above: Order Comment: Speci men Type: BLOOD SPECIMENOrdering Facility: [facility] Address: [address] [place] [address] Performed By: #### 1 9123-9, 2578, 2776-06, ####[facility] LABIA [id number] [place] [id number] [place] CO2 [Moles/Vol] 24 mmol/L Normal 22-30 [facility] Comment on above: Order Comment: Speci men Type: BLOOD SPECIMENOrdering Facility: [facility] Address: [address] [place] [address] Performed By: #### 1 9123-9, 2578, 2776-06, ####[facility] [facility] [id number] [place] [address] [place] Creatinine [Mass/Vol] 0.77 mg/dL Normal 0.58-0.96 [facility] Comment on above: Order Comment: Speci men Type: BLOOD SPECIMENOrdering Facility: [facility] Address: [address] [place] [address] Performed By: #### 1 9123-9, 8, 2776-06, ####[facility] [id number] [place] [address] [place] Creatinine and Glomerular filtration rate.predicted panel (S/P/Bld) 100 mL/min/1.73m??? Normal >=60 [facility] Comment on above: Order Comment: Speci men Type: BLOOD SPECIMENOrdering Facility: [facility] Address: [address] [place] [address] Result Comment: Zeny mated Glomerular Filtration Rate (eGFR) is calculated using the 2020 CKD-EPI creatinine equation. This equation utilizes serum creatinine, sex, and age as parameters. The creatinine assay has traceable calibration to isotope dilution-mass spectrometry. Refer to KDIGO guidelines for clinical interpretation. In patients with unstable renal function, e.g. those with acute kidney injury, the eGFR may not accurately reflect actual GFR. Performed By: #### 1 9123-9, 2578, 27712-25, 77600-1 ####[facility] LABCLIA [id number] [place] [address] [place] Glucose [Mass/Vol] 118 mg/dL High 74-99 [facility] Comment on above: Order Comment: Speci men Type: BLOOD SPECIMENOrdering Facility: [facility] Address: [address] [place] [address] Result Comment: The [place] Diabetes Association (ADA) provides guidance for cutoff values for fasting glucose and random glucose. The ADA defines fasting as no caloric intake for at least 8 hours. Fasting plasma glucose results between 100 to 125 mg/dL indicate increased risk for diabetes (prediabetes).Fasting plasma glucose results greater than or equal to 126 mg/dL meet the criteria for diagnosis of diabetes. In the absence of unequivocal hyperglycemia, results should be confirmed by repeat testing. In a patient with classic symptoms of hyperglycemia or hyperglycemic crisis, random plasma glucose results greater than or equal to 200 mg/dL meet the criteria for diagnosis of diabetes.Reference: Standards of Medical Care in Diabetes 2016, [place] [employer]. Diabetes Care. 2016.39(Suppl 1). Performed By: #### 1 9123-9, 2571-8, 2777-1, 10355-1 ####[facility] LABCLIA [id number] [place] [address] [place] Potassium [Moles/Vol] 4.0 mmol/L Normal 3.7-5.1 [facility] Comment on above: Order Comment: Speci men Type: BLOOD SPECIMENOrdering Facility: [facility] Address: [address] [place] [address] Performed By: #### 1 9123-9, 2571-8, 2777-1, 18931-8 ####[facility] LABCLIA [id number] [place] [address] [place] Protein [Mass/Vol] 7.1 g/dL Normal 6.3-8.0 [facility] Comment on above: Order Comment: Speci men Type: BLOOD SPECIMENOrdering Facility: [facility] Address: [address] [place] [address] Performed By: #### 1 9123-9, 2570-8, 277-, 82748-0 ####[facility] LABCLIA [id number] [place] [id number] [place] Sodium [Moles/Vol] 138 mmol/L Normal 136-144 [facility] Comment on above: Order Comment: Speci men Type: BLOOD SPECIMENOrdering Facility: [facility] Address: [address] [place] [address] Performed By: #### 1 9123-9, 2570-8, 27712-25, 36457-4 ####[facility] LABIA [id number] [place] [address] [place] Urea nitrogen [Mass/Vol] 17 mg/dL Normal 7-21 [facility] Comment on above: Order Comment: Speci men Type: BLOOD SPECIMENOrdering Facility: [facility] Address: [address] [place] [address] Performed By: #### 1 9123-9, 8, 27712-25, 86331-6 ####[facility] LABIA [id number] [place] [id number] [place] ECG COMPLETEon 12-11-2024 ECG COMPLETE Normal [facility] Magnesium SerPl-mCncon 12-11 Magnesium [Mass/Vol] 1.9 mg/dL Normal 1.7-2.3 [facility] Comment on above: Order Comment: Speci men Type: BLOOD SPECIMENOrdering Facility: [facility] Address: [address] [place] [address] Performed By: #### 1 9123-9, 257-8, 2777, 95469-8 ####[facility] LABIA [id number] [place] [id number] [place] NUTRITIONon 12-11-2024 NUTRITION Normal [facility] PTT, ANTICOAGULANT THERAPYon 12-11-2024 aPTT Coag (PPP) [Time] 55.2 s High 23.0-32.4 [facility] Comment on above: Order Comment: Speci men Type: BLOOD SPECIMENOrdering Facility: [facility] Address: [address] [place] [address] Performed By: #### P TTAC ####[facility] [id number] [place] [id number] [place] aPTT Coag (PPP) [Time] 68.6 s High 23.0-32.4 [facility] Comment on above: Order Comment: Speci men Type: BLOOD SPECIMENOrdering Facility: [facility] Address: [address] [place] [address] Performed By: #### P TTAC ####[facility] [id number] [place] [id number] [place] Phosphate SerPl-mCncon 12-11 Phosphate [Mass/Vol] 3.1 mg/dL Normal 2.7-4.8 [facility] Comment on above: Order Comment: Speci men Type: BLOOD SPECIMENOrdering Facility: [facility] Address: [address] [place] [address] Performed By: #### 1 9123-9, 2571-8, 2777-1, 37316-0 ####[facility] [id number] [place] [address] [place] Trigl SerPl-mCncon Triglyceride [Mass/Vol] 107 mg/dL Normal <150 [facility] Comment on above: Order Comment: Speci men Type: BLOOD SPECIMENOrdering Facility: [facility] Address: [address] [place] [address] Result Comment: <150 mg/dL, Normal 150-199 mg/dL, Borderline high 200-499 mg/dL, High>499 mg/dL, Very highReference:1. National Cholesterol Education Program ATP III Guideline At-A-Glance Quick Desk Reference: National Heart, Lung, and Blood [place]. National Institutes of Health. 2001: NIH Publication No. 01-3305. Performed By: #### 1 9123-9, 2571-8, 2777-1, 11163-4 ####[facility] LABCLIA [id number] [place] [address] [place] Triglyceride [Mass/Vol]on FASTING TIME 0 hrs Normal [facility] Comment on above: Order Comment: Speci men Type: BLOOD SPECIMENOrdering Facility: [facility] Address: [address] [place] [address] Performed By: #### 1 9123-9, 2571-8, 2777-1, 58531-8 ####[facility] LABCLIA [id number] [place] [address] [place] Vancomycin [place] SerPl-mCncon 12-11-2024 Vancomycin random [Mass/Vol] 14.8 ug/mL Normal 10.0-20.0 [facility] Comment on above: Order Comment: Speci men Type: BLOOD SPECIMENOrdering Facility: [facility] Address: [address] [place] [address] Result Comment: Refe rence ranges and high/low indicator flags are provided as general guidelines only. The treating physician must determine appropriate target levels/dosing based on the specific clinical situation. Performed By: #### 4 091-5 ####[facility] LABCLIA [id number] [place] [address] [place] ANES POSTPROC EVALon 025 ANES POSTPROC EVAL Normal [facility] ANES PRE-OPon 12-10-2024 ANES PRE-OP Normal [facility] B-HCG SerPl-aCncon HCG.beta subunit Qn m[IU]/mL Normal <5.0 [facility] Comment on above: Order Comment: Speci men Type: BLOOD SPECIMENOrdering Facility: [facility] Address: [address] [place] [address] Result Comment: [facility] Performed By: #### 2 1198-7 ####[facility] LABIA [id number] [place] [id number] [place] CASE MANAGEMon 12-10-2024 CASE MANAGEM Normal [facility] CBC panel Auto (Bld)on 12-10 Erythrocyte distribution width (RBC) [Ratio] 21.9 % High 11.5-15.0 [facility] Comment on above: Order Comment: Speci men Type: BLOOD SPECIMENOrdering Facility: [facility] Address: [address] [place] [address] Performed By: #### 5 8410-2 ####[facility] LABIA [id number] [place] [address] [place] Hematocrit (Bld) [Volume fraction] 28.0 % Low 36.0-46.0 [facility] Comment on above: Order Comment: Speci men Type: BLOOD SPECIMENOrdering Facility: [facility] Address: [address] [place] [address] Performed By: #### 5 8410-2 ####[facility] LABIA [id number] [place] [address] [place] Hemoglobin (Bld) [Mass/Vol] 8.3 g/dL Low 11.5-15.5 [facility] Comment on above: Order Comment: Speci men Type: BLOOD SPECIMENOrdering Facility: [facility] Address: [address] [place] [address] Performed By: #### 5 8410-2 ####[facility] LABCLIA [id number] [place] [id number] [place] MCH (RBC) [Entitic mass] 27.9 pg Normal 26.0-34.0 [facility] Comment on above: Order Comment: Speci men Type: BLOOD SPECIMENOrdering Facility: [facility] Address: [address] [place] [address] Performed By: #### 5 8410-2 ####[facility] LABCLIA [id number] [place] [address] [place] MCHC (RBC) [Mass/Vol] 29.6 g/dL Low 30.5-36.0 [facility] Comment on above: Order Comment: Speci men Type: BLOOD SPECIMENOrdering Facility: [facility] Address: [address] [place] [address] Performed By: #### 5 8410-2 ####[facility] LABIA [id number] [place] [address] [place] MCV (RBC) [Entitic vol] 94.0 fL Normal 80.0-100.0 [facility] Comment on above: Order Comment: Speci men Type: BLOOD SPECIMENOrdering Facility: [facility] Address: [address] [place] [address] Result Comment: MCV is >= 10% variation from the most recent sample, clinical correlation suggested to exclude specimen misidentification. Performed By: #### 5 8410-2 ####[facility] LABIA [id number] [place] [address] [place] Nucleated RBC (Bld) [#/Vol] 0.02 10*3/uL High <0.01 [facility] Comment on above: Order Comment: Speci men Type: BLOOD SPECIMENOrdering Facility: [facility] Address: [address] [place] [address] Performed By: #### 5 8410-2 ####[facility] LABIA [id number] [place] [address] [place] Platelet mean volume (Bld) [Entitic vol] 11.7 fL Normal 9.0-12.7 [facility] Comment on above: Order Comment: Speci men Type: BLOOD SPECIMENOrdering Facility: [facility] Address: [address] [place] [address] Performed By: #### 5 8410-2 ####[facility] LABIA [id number] [address] [id number] [address] [place] Platelets (Bld) [#/Vol] 389 10*3/uL Normal 150-400 [facility] Comment on above: Order Comment: Speci men Type: BLOOD SPECIMENOrdering Facility: [facility] Address: [address] [place] [address] Performed By: #### 5 8410-2 ####[facility] LABCLIA [id number] [place] [address] [place] RBC (Bld) [#/Vol] 2.98 10*6/uL Low 3.90-5.20 [facility] Comment on above: Order Comment: Speci men Type: BLOOD SPECIMENOrdering Facility: [facility] Address: [address] [place] [address] Performed By: #### 5 8410-2 ####[facility] LABCLIA [id number] [place] [address] [place] WBC (Bld) [#/Vol] 6.68 10*3/uL Normal 3.70-11.00 [facility] Comment on above: Order Comment: Speci men Type: BLOOD SPECIMENOrdering Facility: [facility] Address: [address] [place] [address] Result Comment: No c lot detected. Performed By: #### 5 8410-2 ####[facility] LABIA [id number] [place] [address] [place] CONSULT PROGon 12-10-2024 CONSULT PROG Normal [facility] CONSULT PROG Normal [facility] CRP SerPl-mCncon 12-10-2024 CRP [Mass/Vol] Normal <0.9 [facility] Comment on above: Order Comment: Speci men Type: BLOOD SPECIMENOrdering Facility: [facility] Address: [address] [place] [address] Result Comment: Poss ible contamination.Corrected result: Previously reported as <0.3 mg/dL on 12/10/2024 at 8:05 AM EDT. Performed By: #### 1 988-5 ####[facility] LABCLIA [id number] [address] [address] [place] Comprehensive metabolic 2000 panelon 12-10-2024 Albumin [Mass/Vol] 3.7 g/dL Low 3.9-4.9 [facility] Comment on above: Order Comment: Speci men Type: BLOOD SPECIMENOrdering Facility: [facility] Address: [address] [place] [address] Performed By: #### 1 9123-9, 27712-25, 39461-7 ####[facility] LABCLIA [id number] [place] [id number] [place] ALP [Catalytic activity/Vol] 198 U/L High 34-123 [facility] Comment on above: Order Comment: Speci men Type: BLOOD SPECIMENOrdering Facility: [facility] Address: [address] [place] [address] Performed By: #### 1 9123-9, 2776-06, 13374-6 ####[facility] LABCLIA [id number] [address] [address] [place] ALT [Catalytic activity/Vol] 43 U/L High 7-38 [facility] Comment on above: Order Comment: Speci men Type: BLOOD SPECIMENOrdering Facility: [facility] Address: [address] [place], [place] [address] Performed By: #### 1 9123-9, 2776-06, 07778-7 ####[facility] LABCLIA [id number] [address] [address] [place] Anion gap [Moles/Vol] 11 mmol/L Normal 8-15 [facility] Comment on above: Order Comment: Speci men Type: BLOOD SPECIMENOrdering Facility: [facility] Address: [address] [place], [place] [address] Performed By: #### 1 9123-9, 2776-06, 26589-8 ####[facility] LABCLIA [id number] [address] [place] [address] [place] AST [Catalytic activity/Vol] 34 U/L Normal 13-35 [facility] Comment on above: Order Comment: Speci men Type: BLOOD SPECIMENOrdering Facility: [facility] Address: [address] [place], [place] [address] Performed By: #### 1 9123-9, 27712-25, 02804-1 ####[facility] LABCLIA [id number] [address] [place] [address] [place] Bilirubin [Mass/Vol] 0.6 mg/dL Normal 0.2-1.3 [facility] Comment on above: Order Comment: Speci men Type: BLOOD SPECIMENOrdering Facility: [facility] Address: [address] [place] [address] Performed By: #### 1 9123-9, 2776-06, ####[facility] LABIA [id number] [address] [place] [address] [place] Calcium [Mass/Vol] 9.6 mg/dL Normal 8.5-10.2 [facility] Comment on above: Order Comment: Speci men Type: BLOOD SPECIMENOrdering Facility: [facility] Address: [address] [place], [place] [address] Performed By: #### 1 9123-9, 27712-25, ####[facility] LABCLIA [id number] [address] [place] [address] [place] Chloride [Moles/Vol] 103 mmol/L Normal 98-107 [facility] Comment on above: Order Comment: Speci men Type: BLOOD SPECIMENOrdering Facility: [facility] Address: [address] [place], [place] [address] Performed By: #### 1 9123-9, 27712-25, 27365-3 ####[facility] LABCLIA [id number] [place] [id number] [place] CO2 [Moles/Vol] 23 mmol/L Normal 22-30 [facility] Comment on above: Order Comment: Speci men Type: BLOOD SPECIMENOrdering Facility: [facility] Address: [address] [place] [address] Performed By: #### 1 9123-9, 2777-, 32846-4 ####[facility] LABCLIA [id number] [place] [id number] [place] Creatinine [Mass/Vol] 0.85 mg/dL Normal 0.58-0.96 [facility] Comment on above: Order Comment: Speci men Type: BLOOD SPECIMENOrdering Facility: [facility] Address: [address] [place] [address] Performed By: #### 1 9123-9, 2776-06, ####[facility] LABIA [id number] [place] [address] [place] [facility] Creatinine and Glomerular filtration rate.predicted panel (S/P/Bld) 88 mL/min/1.73m??? Normal >=60 [facility] Comment on above: Order Comment: Dora finch Type: BLOOD SPECIMENOrdering Facility: [facility] Address: [address] [place] [address] Result Comment: Zeny mated Glomerular Filtration Rate (eGFR) is calculated using the 2020 CKD-EPI creatinine equation. This equation utilizes serum creatinine, sex, and age as parameters. The creatinine assay has traceable calibration to isotope dilution-mass spectrometry. Refer to KDIGO guidelines for clinical interpretation. In patients with unstable renal function, e.g. those with acute kidney injury, the eGFR may not accurately reflect actual GFR. Performed By: #### 1 9123-9, 277-, 84747-8 ####[facility] LABCLIA [id number] [place] [id number] [place] Glucose [Mass/Vol] 119 mg/dL High 74-99 [facility] Comment on above: Order Comment: Speci men Type: BLOOD SPECIMENOrdering Facility: [facility] Address: [address] [place], [place] [address] Result Comment: The [place] Diabetes [employer] (ADA) provides guidance for cutoff values for fasting glucose and random glucose. The ADA defines fasting as no caloric intake for at least 8 hours. Fasting plasma glucose results between 100 to 125 mg/dL indicate increased risk for diabetes (prediabetes).Fasting plasma glucose results greater than or equal to 126 mg/dL meet the criteria for diagnosis of diabetes. In the absence of unequivocal hyperglycemia, results should be confirmed by repeat testing. In a patient with classic symptoms of hyperglycemia or hyperglycemic crisis, random plasma glucose results greater than or equal to 200 mg/dL meet the criteria for diagnosis of diabetes.Reference: Standards of Medical Care in Diabetes 2016, [place] [employer]. Diabetes Care. 2016.39(Suppl 1). Performed By: #### 1 9123-9, 2777, ####[facility] LABCLIA [id number] [place] [address] [place] Potassium [Moles/Vol] 4.8 mmol/L Normal 3.7-5.1 [facility] Comment on above: Order Comment: Dora finch Type: BLOOD SPECIMENOrdering Facility: [facility] Address: [address] [place] [address] Performed By: #### 1 9123-9, 2776-06, ####[facility] LABCLIA [id number] [address] [address] [place] Protein [Mass/Vol] 7.4 g/dL Normal 6.3-8.0 [facility] Comment on above: Order Comment: Dora finch Type: BLOOD SPECIMENOrdering Facility: [facility] Address: [address] [place], [place] [address] Performed By: #### 1 9123-9, 2776-06, ####[facility] LABCLIA [id number] [facility] [address] [address] [place] Sodium [Moles/Vol] 137 mmol/L Normal 136-144 [facility] Comment on above: Order Comment: Speci men Type: BLOOD SPECIMENOrdering Facility: [facility] Address: [address] [place] [address] Performed By: #### 1 9123-9, 27712-25, 76810-4 ####[facility] LABCLIA [id number] [address] [address] [place] Urea nitrogen [Mass/Vol] 16 mg/dL Normal 7-21 [facility] Comment on above: Order Comment: Speci men Type: BLOOD SPECIMENOrdering Facility: [facility] Address: [address] [place] [address] Performed By: #### 1 9123-9, 27712-25, ####[facility] LABCLIA [id number] [address] [address] [place] Magnesium SerPl-mCncon 12-10 Magnesium [Mass/Vol] 2.2 mg/dL Normal 1.7-2.3 [facility] Comment on above: Order Comment: Speci men Type: BLOOD SPECIMENOrdering Facility: [facility] Address: [address] [place] [address] Performed By: #### 1 9123-9, 2776-06, ####[facility] LABIA [id number] [place] [id number] [place] NUTRITIONon 12-10-2024 NUTRITION Normal [facility] PTT, ANTICOAGULANT THERAPYon 12-10-2024 aPTT Coag (PPP) [Time] 50.4 s High 23.0-32.4 [facility] Comment on above: Order Comment: Speci men Type: BLOOD SPECIMENOrdering Facility: [facility] Address: [address] [place] [address] Performed By: #### P TTAC ####[facility] LABCLIA [id number] [place] [id number] [place] aPTT Coag (PPP) [Time] 29.2 s Normal 23.0-32.4 [facility] Comment on above: Order Comment: Speci men Type: BLOOD SPECIMENOrdering Facility: [facility] Address: [address] [place] [address] Result Comment: Inte rpret with caution. Sample centrifuged greater than 1 hour from collection time. According to Clinical and Laboratory Standards [place] guidelines, results could be falsely decreased due to heparin neutralization by in vitro release of platelet factor 4. Suggest correlation with clinical findings and redraw if indicated. Performed By: #### P TTAC ####[facility] LABCLIA [id number] [place] [address] [place] Phosphate SerPl-mCncon 12-10 Phosphate [Mass/Vol] 4.3 mg/dL Normal 2.7-4.8 [facility] Comment on above: Order Comment: Speci men Type: BLOOD SPECIMENOrdering Facility: [facility] Address: [address] [place] [address] Performed By: #### 1 9123-9, 2777-1, 96311-0 ####[facility] LABCLIA [id number] [address] [place] TYPE + SCREENon 12-10-2024 ABO O Normal [facility] Comment on above: Order Comment: Speci men Type: BLOOD SPECIMENOrdering Facility: [facility] Address: [address] [place] [address] Performed By: #### T SCR ####[facility]CL[facility] [id number] [place] [address] [place] Rh Nom (Bld) Positive Normal [facility] Comment on above: Order Comment: Speci men Type: BLOOD SPECIMENOrdering Facility: [facility] Address: [address] [place] [address] Performed By: #### T SCR ####[facility] BANKCLIA [id number] [place] [address] [place] TYPE AND SCREEN EXPIRATION 12/13/2024 23:59 Normal [facility] Comment on above: Order Comment: Speci men Type: BLOOD SPECIMENOrdering Facility: [facility] Address: [address] [place] [address] Performed By: #### T SCR ####[facility] B[facility] BANKCLIA [id number] [place] [address] [place] ALLIED HEALTHon 12-09-2024 ALLIED HEALTH Normal [facility] CBC panel Auto (Bld)on 12-09 Erythrocyte distribution width (RBC) [Ratio] 20.9 % High 11.5-15.0 [facility] Comment on above: Order Comment: Speci men Type: BLOOD SPECIMENOrdering Facility: [facility] Address: [address] [place] [address] Performed By: #### 5 8410-2 ####[facility] LABCLIA [id number] [address] [place] [facility] Hematocrit (Bld) [Volume fraction] 28.3 % Low 36.0-46.0 [facility] [facility] Comment on above: Order Comment: Speci men Type: BLOOD SPECIMENOrdering Facility: [facility] Address: [address] [place] [address] Performed By: #### 5 8410-2 ####[facility] LABCLIA [id number] [place] [address] [place] Hemoglobin (Bld) [Mass/Vol] 8.9 g/dL Low 11.5-15.5 [facility] Comment on above: Order Comment: Speci men Type: BLOOD SPECIMENOrdering Facility: [facility] Address: [address] [place] [address] Performed By: #### 5 8410-2 ####[facility] LABCLIA [id number] [place] [id number] [place] MCH (RBC) [Entitic mass] 26.5 pg Normal 26.0-34.0 [facility] Comment on above: Order Comment: Speci men Type: BLOOD SPECIMENOrdering Facility: [facility] Address: [address] [place] [address] Performed By: #### 5 8410-2 ####[facility] LABIA [id number] [place] [address] [place] MCHC (RBC) [Mass/Vol] 31.4 g/dL Normal 30.5-36.0 [facility] Comment on above: Order Comment: Speci men Type: BLOOD SPECIMENOrdering Facility: [facility] Address: [address] [place] [address] Performed By: #### 5 8410-2 ####[facility] [id number] [place] [address] [place] MCV (RBC) [Entitic vol] 84.2 fL Normal 80.0-100.0 [facility] Comment on above: Order Comment: Speci men Type: BLOOD SPECIMENOrdering Facility: [facility] Address: [address] [place] [address] Performed By: #### 5 8410-2 ####[facility] [id number] [place] [address] [place] Nucleated RBC (Bld) [#/Vol] 10*3/uL Normal <0.01 [facility] Comment on above: Order Comment: Speci men Type: BLOOD SPECIMENOrdering Facility: [facility] Address: [address] [place] [address] Performed By: #### 5 8410-2 ####[facility] [id number] [place] [address] [place] Platelet mean volume (Bld) [Entitic vol] 9.2 fL Normal 9.0-12.7 [facility] Comment on above: Order Comment: Speci men Type: BLOOD SPECIMENOrdering Facility: [facility] Address: [address] [place] [address] Performed By: #### 5 8410-2 ####[facility] LABCLIA [id number] [address] [place] [address] [place] Platelets (Bld) [#/Vol] 423 10*3/uL High 150-400 [facility] Comment on above: Order Comment: Speci men Type: BLOOD SPECIMENOrdering Facility: [facility] Address: [address] [place] [address] Performed By: #### 5 8410-2 ####[facility] LABCLIA [id number] [address] [place] [address] [place] RBC (Bld) [#/Vol] 3.36 10*6/uL Low 3.90-5.20 [facility] Comment on above: Order Comment: Speci men Type: BLOOD SPECIMENOrdering Facility: [facility] Address: [address] [place] [address] Performed By: #### 5 8410-2 ####[facility] LABIA [id number] [address] [address] [place] WBC (Bld) [#/Vol] 8.36 10*3/uL Normal 3.70-11.00 [facility] Comment on above: Order Comment: Speci men Type: BLOOD SPECIMENOrdering Facility: [facility] Address: [address] [place] [address] Performed By: #### 5 8410-2 ####[facility] LABCLIA [id number] [address] [address] [facility] [place] Comprehensive metabolic 2000 panelon 12-09-2024 Albumin [Mass/Vol] 3.2 g/dL Low 3.9-4.9 [facility] Comment on above: Order Comment: Speci men Type: BLOOD SPECIMENOrdering Facility: [facility] Address: [address] [place] [address] Performed By: #### 2 4323-8, 2777-1, 77754-6 ####[facility] LABCLIA [id number] [address] [place] [address] [place] ALP [Catalytic activity/Vol] 163 U/L High 34-123 [facility] Comment on above: Order Comment: Speci men Type: BLOOD SPECIMENOrdering Facility: [facility] Address: [address] [place] [address] Performed By: #### 2 4323-8, 27712-25, ####[facility] LABCLIA [id number] [place] [id number] [place] ALT [Catalytic activity/Vol] 37 U/L Normal 7-38 [facility] Comment on above: Order Comment: Speci men Type: BLOOD SPECIMENOrdering Facility: [facility] Address: [address] [place] [address] Performed By: #### 2 4323-8, 27712-25, ####[facility] LABCLIA [id number] [place] [id number] [place] Anion gap [Moles/Vol] 12 mmol/L Normal 8-15 [facility] Comment on above: Order Comment: Speci men Type: BLOOD SPECIMENOrdering Facility: [facility] Address: [address] [place] [address] Performed By: #### 2 4323-8, 2776-06, ####[facility] LABCLIA [id number] [place] [id number] [place] AST [Catalytic activity/Vol] 31 U/L Normal 13-35 [facility] Comment on above: Order Comment: Speci men Type: BLOOD SPECIMENOrdering Facility: [facility] Address: [address] [place], [place] [address] Performed By: #### 2 4323-8, 2771, ####[facility] LABCLIA [id number] [address] [address] [place] Bilirubin [Mass/Vol] 0.5 mg/dL Normal 0.2-1.3 [facility] Comment on above: Order Comment: Speci men Type: BLOOD SPECIMENOrdering Facility: [facility] Address: [address] [place], [place] [address] Performed By: #### 2 4323-8, 2776-06, ####[facility] LABCLIA [id number] [address] [place] [address] [place] Calcium [Mass/Vol] 9.2 mg/dL Normal 8.5-10.2 [facility] Comment on above: Order Comment: Speci men Type: BLOOD SPECIMENOrdering Facility: [facility] Address: [address] [place] [address] Performed By: #### 2 4323-8, 2776-06, ####[facility] LABCLIA [id number] [address] [address] [place] Chloride [Moles/Vol] 101 mmol/L Normal 98-107 [facility] Comment on above: Order Comment: Speci men Type: BLOOD SPECIMENOrdering Facility: [facility] Address: [address] [place], [place] [address] Performed By: #### 2 4323-8, 2776-06, ####[facility] LABCLIA [id number] [address] [place] [address] [place] CO2 [Moles/Vol] 24 mmol/L Normal 22-30 [facility] Comment on above: Order Comment: Speci men Type: BLOOD SPECIMENOrdering Facility: [facility] Address: [address] [place], [place] [address] Performed By: #### 2 4323-8, 2776-06, ####[facility] LABCLIA [id number] [facility] [address] [place] [address] [place] Creatinine [Mass/Vol] 0.89 mg/dL Normal 0.58-0.96 [facility] Comment on above: Order Comment: Dora finch Type: BLOOD SPECIMENOrdering Facility: [facility] Address: [address] [place] [id number] Performed By: #### 2 4323-8, 2777-, ####[facility] LABCLIA [id number] [place] [id number] [place] Creatinine and Glomerular filtration rate.predicted panel (S/P/Bld) 84 mL/min/1.73m??? Normal >=60 [facility] Comment on above: Order Comment: Dora finch Type: BLOOD SPECIMENOrdering Facility: [facility] Address: [address] [place] [address] Result Comment: Zeny mated Glomerular Filtration Rate (eGFR) is calculated using the 2020 CKD-EPI creatinine equation. This equation utilizes serum creatinine, sex, and age as parameters. The creatinine assay has traceable calibration to isotope dilution-mass spectrometry. Refer to KDIGO guidelines for clinical interpretation. In patients with unstable renal function, e.g. those with acute kidney injury, the eGFR may not accurately reflect actual GFR. Performed By: #### 2 4323-8, 2777-, ####[facility] LABIA [id number] [place] [id number] [place] Glucose [Mass/Vol] 105 mg/dL High 74-99 [facility] Comment on above: Order Comment: Dora finch Type: BLOOD SPECIMENOrdering Facility: [facility] Address: [address] [place] [address] Result Comment: The [place] [employer] (ADA) provides guidance for cutoff values for fasting glucose and random glucose. The ADA defines fasting as no caloric intake for at least 8 hours. Fasting plasma glucose results between 100 to 125 mg/dL indicate increased risk for diabetes (prediabetes).Fasting plasma glucose results greater than or equal to 126 mg/dL meet the criteria for diagnosis of diabetes. In the absence of unequivocal hyperglycemia, results should be confirmed by repeat testing. In a patient with classic symptoms of hyperglycemia or hyperglycemic crisis, random plasma glucose results greater than or equal to 200 mg/dL meet the criteria for diagnosis of diabetes.Reference: Standards of Medical Care in Diabetes 2016, [place] [employer]. Diabetes Care. 2016.39(Suppl 1). Performed By: #### 2 4323-8, 2776-06, ####[facility] LABCLIA [id number] [address] [address] [place] Potassium [Moles/Vol] 3.9 mmol/L Normal 3.7-5.1 [facility] Comment on above: Order Comment: Speci men Type: BLOOD SPECIMENOrdering Facility: [facility] Address: [address] [place] [address] Performed By: #### 2 4323-8, 2776-06, ####[facility] LABCLIA [id number] [address] [address] [place] Protein [Mass/Vol] 6.4 g/dL Normal 6.3-8.0 [facility] Comment on above: Order Comment: Speci men Type: BLOOD SPECIMENOrdering Facility: [facility] Address: [address] [place] [address] Performed By: #### 2 4323-8, 2776-06, ####[facility] LABIA [id number] [address] [address] [place] Sodium [Moles/Vol] 137 mmol/L Normal 136-144 [facility] Comment on above: Order Comment: Speci men Type: BLOOD SPECIMENOrdering Facility: [facility] Address: [address] [place] [address] Performed By: #### 2 4323-8, 2776-06, ####[facility] LABIA [id number] [address] [address] [place] Urea nitrogen [Mass/Vol] 17 mg/dL Normal 7-21 [facility] Comment on above: Order Comment: Speci men Type: BLOOD SPECIMENOrdering Facility: [facility] Address: [address] [place] [address] Performed By: #### 2 4323-8, 2777-1, 32495-1 ####[facility] LABCLIA [id number] [place] [id number] [facility] [place] Magnesium SerPl-mCncon 12-09 Magnesium [Mass/Vol] 1.9 mg/dL Normal 1.7-2.3 [facility] Comment on above: Order Comment: Speci men Type: BLOOD SPECIMENOrdering Facility: [facility] Address: [address] [place] [address] Performed By: #### 2 4323-8, 2777-1, ####[facility] LABCLIA [id number] [place] [address] [place] NURSING PROGon 12-09-2024 NURSING PROG Normal [facility] PTT, ANTICOAGULANT THERAPYon 12-09-2024 aPTT Coag (PPP) [Time] 64.5 s High 23.0-32.4 [facility] Comment on above: Order Comment: Speci men Type: BLOOD SPECIMENOrdering Facility: [facility] Address: [address] [place] [address] Performed By: #### P TTAC ####[facility] LABIA [id number] [place] [address] [place] aPTT Coag (PPP) [Time] 44.6 s High 23.0-32.4 [facility] Comment on above: Order Comment: Speci men Type: BLOOD SPECIMENOrdering Facility: [facility] Address: [address] [place] [address] Performed By: #### P TTAC ####[facility] LABIA [id number] [place] [id number] [place] aPTT Coag (PPP) [Time] 87.9 s High 23.0-32.4 [facility] Comment on above: Order Comment: Speci men Type: BLOOD SPECIMENOrdering Facility: [facility] Address: [address] [place] [address] Performed By: #### P TTAC ####[facility] LABIA [id number] [place] [address] [place] Phosphate SerPl-mCncon 12-09 Phosphate [Mass/Vol] 4.1 mg/dL Normal 2.7-4.8 [facility] Comment on above: Order Comment: Speci men Type: BLOOD SPECIMENOrdering Facility: [facility] Address: [address] [place] [address] Performed By: #### 2 4323-8, 2777-1, 40598-5 ####[facility] LABIA [id number] [place] [address] [place] BRIEF OP NOTon 12-08-2024 BRIEF OP NOT Normal [facility] CBC panel Auto (Bld)on 12-08 Erythrocyte distribution width (RBC) [Ratio] 20.5 % High 11.5-15.0 [facility] Comment on above: Order Comment: Speci men Type: BLOOD SPECIMENOrdering Facility: [facility] Address: [address] [place] [address] Performed By: #### 5 8410-2 ####[facility] LABIA [id number] [place] [address] [place] Hematocrit (Bld) [Volume fraction] 27.6 % Low 36.0-46.0 [facility] Comment on above: Order Comment: Speci men Type: BLOOD SPECIMENOrdering Facility: [facility] Address: [address] [place] [address] Performed By: #### 5 8410-2 ####[facility] LABIA [id number] [place] [address] [place] Hemoglobin (Bld) [Mass/Vol] 8.4 g/dL Low 11.5-15.5 [facility] Comment on above: Order Comment: Speci men Type: BLOOD SPECIMENOrdering Facility: [facility] Address: [address] [place] [address] Performed By: #### 5 8410-2 ####[facility] [id number] [place] [address] [place] MCH (RBC) [Entitic mass] 25.9 pg Low 26.0-34.0 [facility] Comment on above: Order Comment: Speci men Type: BLOOD SPECIMENOrdering Facility: [facility] Address: [address] [place] [address] Performed By: #### 5 8410-2 ####[facility] [id number] [place] [address] [place] MCHC (RBC) [Mass/Vol] 30.4 g/dL Low 30.5-36.0 [facility] Comment on above: Order Comment: Speci men Type: BLOOD SPECIMENOrdering Facility: [facility] Address: [address] [place] [address] Performed By: #### 5 8410-2 ####[facility] [id number] [place] [address] [place] MCV (RBC) [Entitic vol] 85.2 fL Normal 80.0-100.0 [facility] Comment on above: Order Comment: Speci men Type: BLOOD SPECIMENOrdering Facility: [facility] Address: [address] [place] [address] Performed By: #### 5 8410-2 ####[facility] [id number] [place] [address] [place] Nucleated RBC (Bld) [#/Vol] 0.02 10*3/uL High <0.01 [facility] Comment on above: Order Comment: Speci men Type: BLOOD SPECIMENOrdering Facility: [facility] Address: [address] [place] [address] Performed By: #### 5 8410-2 ####[facility] LABCLIA [id number] [address] [place] [address] [place] Platelet mean volume (Bld) [Entitic vol] 10.3 fL Normal 9.0-12.7 [facility] Comment on above: Order Comment: Speci men Type: BLOOD SPECIMENOrdering Facility: [facility] Address: [address] [place] [address] Performed By: #### 5 8410-2 ####[facility] LABCLIA [id number] [address] [place] [address] [place] Platelets (Bld) [#/Vol] 423 10*3/uL High 150-400 [facility] Comment on above: Order Comment: Speci men Type: BLOOD SPECIMENOrdering Facility: [facility] Address: [address] [place] [address] Performed By: #### 5 8410-2 ####[facility] LABIA [id number] [address], [place] [address] [place] RBC (Bld) [#/Vol] 3.24 10*6/uL Low 3.90-5.20 [facility] Comment on above: Order Comment: Speci men Type: BLOOD SPECIMENOrdering Facility: [facility] Address: [address] [place] [address] Performed By: #### 5 8410-2 ####[facility] LABCLIA [id number] [address] [address] [place] WBC (Bld) [#/Vol] 7.37 10*3/uL Normal 3.70-11.00 [facility] Comment on above: Order Comment: Speci men Type: BLOOD SPECIMENOrdering Facility: [facility] Address: [address] [place] [address] Performed By: #### 5 8410-2 ####[facility] LABIA [id number] [address] [address] [place] CONSULT PROGon 12-08-2024 CONSULT PROG Normal [facility] CONSULT PROG Normal [facility] Comprehensive metabolic 2000 panelon 12-08-2024 Albumin [Mass/Vol] 3.2 g/dL Low 3.9-4.9 [facility] Comment on above: Order Comment: Speci men Type: BLOOD SPECIMENOrdering Facility: [facility] Address: [address] [place] [address] Performed By: #### 2 4323-8, , 2776-06 ####[facility] LABCLIA [id number] [place] [address] [place] ALP [Catalytic activity/Vol] 163 U/L High 34-123 [facility] Comment on above: Order Comment: Speci men Type: BLOOD SPECIMENOrdering Facility: [facility] Address: [address] [place] [address] Performed By: #### 2 4323-8, , 2776-06 ####[facility] LABCLIA [id number] [place] [address] [place] ALT [Catalytic activity/Vol] 41 U/L High 7-38 [facility] Comment on above: Order Comment: Speci men Type: BLOOD SPECIMENOrdering Facility: [facility] Address: [address] [place], [place] [address] Performed By: #### 2 4323-8, , 2776-06 ####[facility] LABCLIA [id number] [place] [id number] [place] Anion gap [Moles/Vol] 14 mmol/L Normal 8-15 [facility] Comment on above: Order Comment: Speci men Type: BLOOD SPECIMENOrdering Facility: [facility] Address: [address] [place], [place] [address] Performed By: #### 2 4323-8, , 2776- ####[facility] LABCLIA [id number] [place] [id number] [place] AST [Catalytic activity/Vol] 30 U/L Normal 13-35 [facility] Comment on above: Order Comment: Speci men Type: BLOOD SPECIMENOrdering Facility: [facility] Address: [address] [place] [address] Performed By: #### 2 4323-8, , 2776-06 ####[facility] LABCLIA [id number] [place] [address] [place] Bilirubin [Mass/Vol] 0.4 mg/dL Normal 0.2-1.3 [facility] Comment on above: Order Comment: Speci men Type: BLOOD SPECIMENOrdering Facility: [facility] Address: [address] [place] [address] Performed By: #### 2 4323-8, , 2776-06 ####[facility] LABCLIA [id number] [place] [address] [place] Calcium [Mass/Vol] 9.3 mg/dL Normal 8.5-10.2 [facility] Comment on above: Order Comment: Speci men Type: BLOOD SPECIMENOrdering Facility: [facility] Address: [address] [place] [address] Performed By: #### 2 4323-8, , 2776-06 ####[facility] LABCLIA [id number] [place] [address] [place] Chloride [Moles/Vol] 101 mmol/L Normal 98-107 [facility] Comment on above: Order Comment: Speci men Type: BLOOD SPECIMENOrdering Facility: [facility] Address: [address] [place] [address] Performed By: #### 2 4323-8, , 2776-06 ####[facility] LABCLIA [id number] [place] [id number] [place] CO2 [Moles/Vol] 22 mmol/L Normal 22-30 [facility] Comment on above: Order Comment: Dora finch Type: BLOOD SPECIMENOrdering Facility: [facility] Address: [address] [place] [address] Performed By: #### 2 4323-8, , 2776-06 ####[facility] LABCLIA [id number] [place] [id number] [place] Creatinine [Mass/Vol] 0.91 mg/dL Normal 0.58-0.96 [facility] Comment on above: Order Comment: Dora finch Type: BLOOD SPECIMENOrdering Facility: [facility] Address: [address] [place] [address] Performed By: #### 2 4323-8, , 2776-06 ####[facility] LABCLIA [id number] [place] [address] [place] Creatinine and Glomerular filtration rate.predicted panel (S/P/Bld) 81 mL/min/1.73m??? Normal >=60 [facility] Comment on above: Order Comment: Dora finch Type: BLOOD SPECIMENOrdering Facility: [facility] Address: [address] [place] [address] Result Comment: Zeny mated Glomerular Filtration Rate (eGFR) is calculated using the 2020 CKD-EPI creatinine equation. This equation utilizes serum creatinine, sex, and age as parameters. The creatinine assay has traceable calibration to isotope dilution-mass spectrometry. Refer to KDIGO guidelines for clinical interpretation. In patients with unstable renal function, e.g. those with acute kidney injury, the eGFR may not accurately reflect actual GFR. Performed By: #### 2 4323-8, , 2776-06 ####[facility] LABCLIA [id number] [place] [id number] [place] Glucose [Mass/Vol] 112 mg/dL High 74-99 [facility] Comment on above: Order Comment: Dora finch Type: BLOOD SPECIMENOrdering Facility: [facility] Address: [address] [place] [id number] Result Comment: The [place] [employer] (ADA) provides guidance for cutoff values for fasting glucose and random glucose. The ADA defines fasting as no caloric intake for at least 8 hours. Fasting plasma glucose results between 100 to 125 mg/dL indicate increased risk for diabetes (prediabetes).Fasting plasma glucose results greater than or equal to 126 mg/dL meet the criteria for diagnosis of diabetes. In the absence of unequivocal hyperglycemia, results should be confirmed by repeat testing. In a patient with classic symptoms of hyperglycemia or hyperglycemic crisis, random plasma glucose results greater than or equal to 200 mg/dL meet the criteria for diagnosis of diabetes.Reference: Standards of Medical Care in Diabetes 2016, [place] [employer]. Diabetes Care. 2016.39(Suppl 1). Performed By: #### 2 4323-8, , 2776-06 ####[facility] LABCLIA [id number] [place] [address] [place] Potassium [Moles/Vol] 4.0 mmol/L Normal 3.7-5.1 [facility] Comment on above: Order Comment: Speci men Type: BLOOD SPECIMENOrdering Facility: [facility] Address: [address] [place] [address] Performed By: #### 2 4323-8, , 2776-06 ####[facility] LABCLIA [id number] [place] [id number] [place] Protein [Mass/Vol] 6.8 g/dL Normal 6.3-8.0 [facility] Comment on above: Order Comment: Speci men Type: BLOOD SPECIMENOrdering Facility: [facility] Address: [address] [place] [id number] Performed By: #### 2 4323-8, , 2776-06 ####[facility] LABCLIA [id number] [place] [id number] [place] Sodium [Moles/Vol] 137 mmol/L Normal 136-144 [facility] Comment on above: Order Comment: Speci men Type: BLOOD SPECIMENOrdering Facility: [facility] Address: [address] [place] [address] Performed By: #### 2 4323-8, 07713-5, 2777-1 ####[facility] LABCLIA [id number] [place] [address] [place] Urea nitrogen [Mass/Vol] 14 mg/dL Normal 7-21 [facility] Comment on above: Order Comment: Florii men Type: BLOOD SPECIMENOrdering Facility: [facility] Address: [address] [place] [address] Performed By: #### 2 4323-8, 32213-1, 2777-1 ####[facility] LABIA [id number] [place] [address] [place] Fact Xa PPP-aCncon 5 Coagulation factor X activated act Coag Qn (PPP) 0.76 IU/mL High <0.10 [facility] Comment on above: Order Comment: Dora stef Type: BLOOD SPECIMENOrdering Facility: [facility] Address: [address] [place] [address] Result Comment: The recommended therapeutic range for treatment of venous and arterial thrombosis with intravenous unfractionated heparin is an anti Xa activity level of 0.3 to 0.7 IU/mL. In patients with concomitant therapy with thrombolytic agents and/or platelet glycoprotein IIb/IIIa antagonists, the recommended therapeutic range is an anti Xa activity level of 0.2 to 0.5 IU/mL. Performed By: #### 3 217-7 ####[facility] LABIA [id number] [place] [address] [place] Coagulation factor X activated act Coag Qn (PPP) 0.55 IU/mL High <0.10 [facility] Comment on above: Order Comment: Florisammie finch Type: BLOOD SPECIMENOrdering Facility: [facility] Address: [address] [place] [address] Result Comment: The recommended therapeutic range for treatment of venous and arterial thrombosis with intravenous unfractionated heparin is an anti Xa activity level of 0.3 to 0.7 IU/mL. In patients with concomitant therapy with thrombolytic agents and/or platelet glycoprotein IIb/IIIa antagonists, the recommended therapeutic range is an anti Xa activity level of 0.2 to 0.5 IU/mL. Performed By: #### P TTAC, 3217-7 ####[facility] LABCLIA [id number] [place] [address] [place] IR PICC INSERT PHYSICIANon 0 12-08-2024 IR PICC INSERT PHYSICIAN Normal [facility] Magnesium SerPl-mCncon 12-08 Magnesium [Mass/Vol] 1.9 mg/dL Normal 1.7-2.3 [facility] Comment on above: Order Comment: Speci men Type: BLOOD SPECIMENOrdering Facility: [facility] Address: [address] [place] [address] Performed By: #### 2 4323-8, 64996-7, 2777-1 ####[facility] LABCLIA [id number] [place] [address] [place] PTT, ANTICOAGULANT THERAPYon 12-08-2024 aPTT Coag (PPP) [Time] 37.0 s High 23.0-32.4 [facility] Comment on above: Order Comment: Florii stef Type: BLOOD SPECIMENOrdering Facility: [facility] Address: [address] [place] [address] Performed By: #### P TTAC ####[facility] LABIA [id number] [place] [id number] [place] aPTT Coag (PPP) [Time] 94.6 s High 23.0-32.4 [facility] Comment on above: Order Comment: Florii men Type: BLOOD SPECIMENOrdering Facility: [facility] Address: [address] [place] [address] Performed By: #### P TTAC ####[facility] LABCLIA [id number] [place] [id number] [place] aPTT Coag (PPP) [Time] 88.0 s High 23.0-32.4 [facility] Comment on above: Order Comment: Speci men Type: BLOOD SPECIMENOrdering Facility: [facility] Address: [address] [place] [address] Performed By: #### P TTAC ####[facility] LABCLIA [id number] [place] [id number] [place] [facility] aPTT Coag (PPP) [Time] 56.3 s High 23.0-32.4 [facility] Comment on above: Order Comment: Speci men Type: BLOOD SPECIMENOrdering Facility: [facility] Address: [address] [place] [address] Performed By: #### P TTAC, 3217-7 ####[facility] LABCLIA [id number] [place] [address] [place] Phosphate SerPl-mCncon 12-08 Phosphate [Mass/Vol] 4.5 mg/dL Normal 2.7-4.8 [facility] Comment on above: Order Comment: Speci men Type: BLOOD SPECIMENOrdering Facility: [facility] Address: [address] [place] [address] Performed By: #### 2 4323-8, 19544-2, 2777-1 ####[facility] LABIA [id number] [place] [id number] [place] ALLIED HEALTHon 12-07-2024 ALLIED HEALTH Normal [facility] CBC panel Auto (Bld)on 12-07 Erythrocyte distribution width (RBC) [Ratio] 20.2 % High 11.5-15.0 [facility] Comment on above: Order Comment: Speci men Type: BLOOD SPECIMENOrdering Facility: [facility] Address: [address] [place] [address] Performed By: #### 5 8410-2 ####[facility] LABCLIA [id number] [place] [address] [place] Hematocrit (Bld) [Volume fraction] 28.3 % Low 36.0-46.0 [facility] Comment on above: Order Comment: Speci men Type: BLOOD SPECIMENOrdering Facility: [facility] Address: [address] [place] [address] Performed By: #### 5 8410-2 ####[facility] LABIA [id number] [place] [address] [place] Hemoglobin (Bld) [Mass/Vol] 9.0 g/dL Low 11.5-15.5 [facility] Comment on above: Order Comment: Speci men Type: BLOOD SPECIMENOrdering Facility: [facility] Address: [address] [place] [address] Performed By: #### 5 8410-2 ####[facility] LABCLIA [id number] [place] [address] [place] MCH (RBC) [Entitic mass] 26.5 pg Normal 26.0-34.0 [facility] Comment on above: Order Comment: Speci men Type: BLOOD SPECIMENOrdering Facility: [facility] Address: [address] [place] [address] Performed By: #### 5 8410-2 ####[facility] LABIA [id number] [place] [address] [place] MCHC (RBC) [Mass/Vol] 31.8 g/dL Normal 30.5-36.0 [facility] Comment on above: Order Comment: Speci men Type: BLOOD SPECIMENOrdering Facility: [facility] Address: [address] [place] [address] Performed By: #### 5 8410-2 ####[facility] LABCLIA [id number] [place] [address] [place] MCV (RBC) [Entitic vol] 83.2 fL Normal 80.0-100.0 [facility] Comment on above: Order Comment: Speci men Type: BLOOD SPECIMENOrdering Facility: [facility] Address: [address] [place] [address] Performed By: #### 5 8410-2 ####[facility] LABCLIA [id number] [place] [address] [place] Nucleated RBC (Bld) [#/Vol] 10*3/uL Normal <0.01 [facility] Comment on above: Order Comment: Speci men Type: BLOOD SPECIMENOrdering Facility: [facility] Address: [address] [place] [address] Performed By: #### 5 8410-2 ####[facility] LABIA [id number] [place] [address] [place] Platelet mean volume (Bld) [Entitic vol] 10.0 fL Normal 9.0-12.7 [facility] Comment on above: Order Comment: Speci men Type: BLOOD SPECIMENOrdering Facility: [facility] Address: [address] [place] [address] Performed By: #### 5 8410-2 ####[facility] LABIA [id number] [place] [address] [place] Platelets (Bld) [#/Vol] 414 10*3/uL High 150-400 [facility] Comment on above: Order Comment: Speci men Type: BLOOD SPECIMENOrdering Facility: [facility] Address: [address] [place] [address] Performed By: #### 5 8410-2 ####[facility] LABIA [id number] [place] [address] [place] RBC (Bld) [#/Vol] 3.40 10*6/uL Low 3.90-5.20 [facility] Comment on above: Order Comment: Speci men Type: BLOOD SPECIMENOrdering Facility: [facility] Address: [address] [place] [address] Performed By: #### 5 8410-2 ####[facility] LABCLIA [id number] [place] [id number] [place] WBC (Bld) [#/Vol] 7.16 10*3/uL Normal 3.70-11.00 [facility] Comment on above: Order Comment: Speci men Type: BLOOD SPECIMENOrdering Facility: [facility] Address: [address] [place] [address] Performed By: #### 5 8410-2 ####[facility] LABCLIA [id number] [place] [id number] [place] CONSULT PROGon 12-07-2024 CONSULT PROG Normal [facility] metabolic 2000 panelon 12-07-2024 Albumin [Mass/Vol] 3.3 g/dL Low 3.9-4.9 [facility] Comment on above: Order Comment: Speci men Type: BLOOD SPECIMENOrdering Facility: [facility] Address: [address] [place], [place] [address] Performed By: #### 2 777-1, , 99428-2 ####[facility] LABIA [id number] [place] [id number] [place] ALP [Catalytic activity/Vol] 185 U/L High 34-123 [facility] Comment on above: Order Comment: Speci men Type: BLOOD SPECIMENOrdering Facility: [facility] Address: [address] [place], [place] [address] Performed By: #### 2 777-1, , 57606-1 ####[facility] LABIA [id number] [place] [id number] [place] ALT [Catalytic activity/Vol] 53 U/L High 7-38 [facility] Comment on above: Order Comment: Speci men Type: BLOOD SPECIMENOrdering Facility: [facility] Address: [address] [place] [address] Performed By: #### 2 777-1, , ####[facility] LABCLIA [id number] [address] [address] [place] Anion gap [Moles/Vol] 16 mmol/L High 8-15 [facility] Comment on above: Order Comment: Speci men Type: BLOOD SPECIMENOrdering Facility: [facility] Address: [address] [place] [address] Performed By: #### 2 777-1, , ####[facility] LABCLIA [id number] [address] [address] [place] AST [Catalytic activity/Vol] 40 U/L High 13-35 [facility] Comment on above: Order Comment: Speci men Type: BLOOD SPECIMENOrdering Facility: [facility] Address: [address] [place] [address] Performed By: #### 2 777-1, , ####[facility] LABCLIA [id number] [address] [address] [place] Bilirubin [Mass/Vol] 0.6 mg/dL Normal 0.2-1.3 [facility] Comment on above: Order Comment: Speci men Type: BLOOD SPECIMENOrdering Facility: [facility] Address: [address] [place] [address] Performed By: #### 2 777-1, , ####[facility] LABCLIA [id number] [address] [address] [place] Calcium [Mass/Vol] 9.0 mg/dL Normal 8.5-10.2 [facility] Comment on above: Order Comment: Speci men Type: BLOOD SPECIMENOrdering Facility: [facility] Address: [address] [place], [place] [address] Performed By: #### 2 777-1, , ####[facility] LABIA [id number] [address] [address] [place] Chloride [Moles/Vol] 101 mmol/L Normal 98-107 [facility] Comment on above: Order Comment: Speci men Type: BLOOD SPECIMENOrdering Facility: [facility] Address: [address] [place] [address] Performed By: #### 2 777-1, , ####[facility] LABIA [id number] [place] [id number] [place] CO2 [Moles/Vol] 21 mmol/L Low 22-30 [facility] Comment on above: Order Comment: Speci men Type: BLOOD SPECIMENOrdering Facility: [facility] Address: [address] [place] [address] Performed By: #### 2 777-1, , ####[facility] LABIA [id number] [place] [id number] [place] Creatinine [Mass/Vol] 1.04 mg/dL High 0.58-0.96 [facility] Comment on above: Order Comment: Speci men Type: BLOOD SPECIMENOrdering Facility: [facility] Address: [address] [place] [address] Performed By: #### 2 777-1, , ####[facility] LABIA [id number] [place] [id number] [place] Creatinine and Glomerular filtration rate.predicted panel (S/P/Bld) 69 mL/min/1.73m??? Normal >=60 [facility] Comment on above: Order Comment: Speci men Type: BLOOD SPECIMENOrdering Facility: [facility] Address: [address] [place] [address] Result Comment: Zeny mated Glomerular Filtration Rate (eGFR) is calculated using the 2020 CKD-EPI creatinine equation. This equation utilizes serum creatinine, sex, and age as parameters. The creatinine assay has traceable calibration to isotope dilution-mass spectrometry. Refer to KDIGO guidelines for clinical interpretation. In patients with unstable renal function, e.g. those with acute kidney injury, the eGFR may not accurately reflect actual GFR. Performed By: #### 2 777-1, , ####[facility] LABCLIA [id number] [employer] [id number] [address] [place] Glucose [Mass/Vol] 178 mg/dL High 74-99 [facility] Comment on above: Order Comment: Dora finch Type: BLOOD SPECIMENOrdering Facility: [facility] Address: [address] [place] [address] Result Comment: The [place] Diabetes [employer] (ADA) provides guidance for cutoff values for fasting glucose and random glucose. The ADA defines fasting as no caloric intake for at least 8 hours. Fasting plasma glucose results between 100 to 125 mg/dL indicate increased risk for diabetes (prediabetes).Fasting plasma glucose results greater than or equal to 126 mg/dL meet the criteria for diagnosis of diabetes. In the absence of unequivocal hyperglycemia, results should be confirmed by repeat testing. In a patient with classic symptoms of hyperglycemia or hyperglycemic crisis, random plasma glucose results greater than or equal to 200 mg/dL meet the criteria for diagnosis of diabetes.Reference: Standards of Medical Care in Diabetes 2016, [place] [employer]. Diabetes Care. 2016.39(Suppl 1). Performed By: #### 2 777-1, , ####[facility] LABCLIA [id number] [id number], [place] [address] [place] Potassium [Moles/Vol] 3.3 mmol/L Low 3.7-5.1 [facility] Comment on above: Order Comment: Dora finch Type: BLOOD SPECIMENOrdering Facility: [facility] Address: [address] [place] [address] Performed By: #### 2 777-1, , ####[facility] LABCLIA [id number] [facility] HOSPITALWindar PhotonicsLUCILE SALTER [facility] [place]K [id number], [place] [address] [place] Protein [Mass/Vol] 7.0 g/dL Normal 6.3-8.0 [facility] Comment on above: Order Comment: Speci men Type: BLOOD SPECIMENOrdering Facility: [facility] Address: [address] [place] [address] Performed By: #### 2 777-1, 63804-2, 25314-4 ####[facility] LABCLIA [id number] [place] [address] [place] Sodium [Moles/Vol] 138 mmol/L Normal 136-144 [facility] Comment on above: Order Comment: Speci men Type: BLOOD SPECIMENOrdering Facility: [facility] Address: [address] [place] [address] Performed By: #### 2 777-1, , 23055-8 ####[facility] LABIA [id number] [place] [address] [place] Urea nitrogen [Mass/Vol] 11 mg/dL Normal 7-21 [facility] Comment on above: Order Comment: Speci men Type: BLOOD SPECIMENOrdering Facility: [facility] Address: [address] [place] [address] Performed By: #### 2 777-1, , ####[facility] LABIA [id number] [place] [address] [place] Fact Xa PPP-aCncon 5 Coagulation factor X activated act Coag Qn (PPP) 0.31 IU/mL High <0.10 [facility] Comment on above: Order Comment: Speci men Type: BLOOD SPECIMENOrdering Facility: [facility] Address: [address] [place] [address] Result Comment: The recommended therapeutic range for treatment of venous and arterial thrombosis with intravenous unfractionated heparin is an anti Xa activity level of 0.3 to 0.7 IU/mL. In patients with concomitant therapy with thrombolytic agents and/or platelet glycoprotein IIb/IIIa antagonists, the recommended therapeutic range is an anti Xa activity level of 0.2 to 0.5 IU/mL. Performed By: #### 3 217-7 ####[facility] LABIA [id number] [address] Magnesium SerPl-mCncon 12-07 Magnesium [Mass/Vol] 2.0 mg/dL Normal 1.7-2.3 [facility] Comment on above: Order Comment: Speci men Type: BLOOD SPECIMENOrdering Facility: [facility] Address: [address] [place] [address] Performed By: #### 2 777-1, 36240-6, 77686-1 ####[facility] [id number] [address] [place] NUTRITIONon 12-07-2024 NUTRITION Normal [facility] PTT, ANTICOAGULANT THERAPYon 12-07-2024 aPTT Coag (PPP) [Time] 47.4 s High 23.0-32.4 [facility] Comment on above: Order Comment: Speci men Type: BLOOD SPECIMENOrdering Facility: [facility] Address: [address] [place] [address] Performed By: #### P TTAC ####[facility] [id number] [address] aPTT Coag (PPP) [Time] 41.6 s High 23.0-32.4 [facility] Comment on above: Order Comment: Speci men Type: BLOOD SPECIMENOrdering Facility: [facility] Address: [address] [place] [address] Result Comment: Inte rpret with caution. Sample centrifuged greater than 1 hour from collection time. According to Clinical and Laboratory Standards [place] guidelines, results could be falsely decreased due to heparin neutralization by in vitro release of platelet factor 4. Suggest correlation with clinical findings and redraw if indicated. Performed By: #### P TTAC ####[facility] [id number] [place] [address] [place] Phosphate SerPl-mCncon 12-07 Phosphate [Mass/Vol] 4.5 mg/dL Normal 2.7-4.8 [facility] Comment on above: Order Comment: Speci men Type: BLOOD SPECIMENOrdering Facility: [facility] Address: [address] [place] [address] Performed By: #### 2 777-1, 71306-4, 52010-4 ####[facility] LABCLIA [id number] [place] [id number] [place] ALLIED HEALTHon 12-06-2024 ALLIED HEALTH Normal [facility] ALLIED HEALTH Normal [facility] ANES POSTPROC EVALon 025 ANES POSTPROC EVAL Normal [facility] ANES PRE-OPon 12-06-2024 ANES PRE-OP Normal [facility] CASE MANAGEMon 12-06-2024 CASE MANAGEM Normal [facility] CBC panel Auto (Bld)on 12-06 Erythrocyte distribution width (RBC) [Ratio] 19.8 % High 11.5-15.0 [facility] Comment on above: Order Comment: Speci men Type: BLOOD SPECIMENOrdering Facility: [facility] Address: [address] [place] [address] Performed By: #### 5 8410-2 ####[facility] LABCLIA [id number] [place] [id number] [place] Hematocrit (Bld) [Volume fraction] 19.8 % Low 36.0-46.0 [facility] Comment on above: Order Comment: Speci men Type: BLOOD SPECIMENOrdering Facility: [facility] Address: [address] [place] [address] Performed By: #### 5 8410-2 ####[facility] LABCLIA [id number] [address] [address] [place] Hemoglobin (Bld) [Mass/Vol] 6.3 g/dL Low 11.5-15.5 [facility] Comment on above: Order Comment: Speci men Type: BLOOD SPECIMENOrdering Facility: [facility] Address: [address] [place] [address] Performed By: #### 5 8410-2 ####[facility] LABIA [id number] [place] [address] [place] MCH (RBC) [Entitic mass] 26.1 pg Normal 26.0-34.0 [facility] Comment on above: Order Comment: Speci men Type: BLOOD SPECIMENOrdering Facility: [facility] Address: [address] [place] [address] Performed By: #### 5 8410-2 ####[facility] [id number] [place] [address] [place] MCHC (RBC) [Mass/Vol] 31.8 g/dL Normal 30.5-36.0 [facility] Comment on above: Order Comment: Speci men Type: BLOOD SPECIMENOrdering Facility: [facility] Address: [address] [place] [address] Performed By: #### 5 8410-2 ####[facility] [id number] [place] [address] [place] MCV (RBC) [Entitic vol] 82.2 fL Normal 80.0-100.0 [facility] Comment on above: Order Comment: Speci men Type: BLOOD SPECIMENOrdering Facility: [facility] Address: [address] [place] [address] Performed By: #### 5 8410-2 ####[facility] [id number] [place] [address] [place] Nucleated RBC (Bld) [#/Vol] 10*3/uL Normal <0.01 [facility] Comment on above: Order Comment: Speci men Type: BLOOD SPECIMENOrdering Facility: [facility] Address: [address] [place] [address] Performed By: #### 5 8410-2 ####[facility] LABCLIA [id number] [address] [place] [address] [place] Platelet mean volume (Bld) [Entitic vol] 8.9 fL Low 9.0-12.7 [facility] Comment on above: Order Comment: Speci men Type: BLOOD SPECIMENOrdering Facility: [facility] Address: [address] [place] [address] Performed By: #### 5 8410-2 ####[facility] LABCLIA [id number] [address] [place] [address] [place] Platelets (Bld) [#/Vol] 496 10*3/uL High 150-400 [facility] Comment on above: Order Comment: Speci men Type: BLOOD SPECIMENOrdering Facility: [facility] Address: [address] [place] [address] Performed By: #### 5 8410-2 ####[facility] LABIA [id number] [place] [id number] [place] RBC (Bld) [#/Vol] 2.41 10*6/uL Low 3.90-5.20 [facility] Comment on above: Order Comment: Speci men Type: BLOOD SPECIMENOrdering Facility: [facility] Address: [address] [place] [address] Performed By: #### 5 8410-2 ####[facility] LABIA [id number] [address] [place] [address] [place] WBC (Bld) [#/Vol] 8.40 10*3/uL Normal 3.70-11.00 [facility] Comment on above: Order Comment: Speci men Type: BLOOD SPECIMENOrdering Facility: [facility] Address: [address] [place] [address] Performed By: #### 5 8410-2 ####[facility] LABIA [id number] [place] [address] [place] Erythrocyte distribution width (RBC) [Ratio] 19.0 % High 11.5-15.0 [facility] Comment on above: Order Comment: Speci men Type: BLOOD SPECIMENOrdering Facility: [facility] Address: [address] [place] [address] Performed By: #### 5 8410-2 ####[facility] LABIA [id number] [place] [address] [place] Hematocrit (Bld) [Volume fraction] 29.1 % Low 36.0-46.0 [facility] Comment on above: Order Comment: Speci men Type: BLOOD SPECIMENOrdering Facility: [facility] Address: [address] [place] [address] Performed By: #### 5 8410-2 ####[facility] LABIA [id number] [place] [address] [place] Hemoglobin (Bld) [Mass/Vol] 9.1 g/dL Low 11.5-15.5 [facility] Comment on above: Order Comment: Speci men Type: BLOOD SPECIMENOrdering Facility[facility] Address: [address] [place] [address] Performed By: #### 5 8410-2 ####[facility] LABIA [id number] [place] [address] [place] MCH (RBC) [Entitic mass] 25.7 pg Low 26.0-34.0 [facility] Comment on above: Order Comment: Speci men Type: BLOOD SPECIMENOrdering Facility: [facility] Address: [address] [place] [address] Performed By: #### 5 8410-2 ####[facility] LABIA [id number] [place] [address] [place] MCHC (RBC) [Mass/Vol] 31.3 g/dL Normal 30.5-36.0 [facility] Comment on above: Order Comment: Speci men Type: BLOOD SPECIMENOrdering Facility: [facility] Address: [address] [place] [address] Performed By: #### 5 8410-2 ####[facility] LABIA [id number] [place] [id number] [place] MCV (RBC) [Entitic vol] 82.2 fL Normal 80.0-100.0 [facility] Comment on above: Order Comment: Speci men Type: BLOOD SPECIMENOrdering Facility: [facility] Address: [address] [place] [address] Performed By: #### 5 8410-2 ####[facility] LABIA [id number] [place] [address] [place] Nucleated RBC (Bld) [#/Vol] 10*3/uL Normal <0.01 [facility] Comment on above: Order Comment: Speci men Type: BLOOD SPECIMENOrdering Facility: [facility] Address: [address] [place] [address] Performed By: #### 5 8410-2 ####[facility] LABIA [id number] [place] [address] [place] Platelet mean volume (Bld) [Entitic vol] 9.3 fL Normal 9.0-12.7 [facility] Comment on above: Order Comment: Speci men Type: BLOOD SPECIMENOrdering Facility: [facility] Address: [address] [place] [address] Performed By: #### 5 8410-2 ####[facility] LABIA [id number] [place] [id number] [place] Platelets (Bld) [#/Vol] 474 10*3/uL High 150-400 [facility] Comment on above: Order Comment: Speci men Type: BLOOD SPECIMENOrdering Facility: [facility] Address: [address] [place] [address] Performed By: #### 5 8410-2 ####[facility] LABIA [id number] [address] [address] [place] RBC (Bld) [#/Vol] 3.54 10*6/uL Low 3.90-5.20 [facility] Comment on above: Order Comment: Speci men Type: BLOOD SPECIMENOrdering Facility: [facility] Address: [address] [place] [address] Performed By: #### 5 8410-2 ####[facility] LABIA [id number] [place] [id number] [place] WBC (Bld) [#/Vol] 8.80 10*3/uL Normal 3.70-11.00 [facility] Comment on above: Order Comment: Speci men Type: BLOOD SPECIMENOrdering Facility: [facility] Address: [address] [place] [address] Performed By: #### 5 8410-2 ####[facility] [id number] [place] [id number] [place] CK SerPl-cCncon 12-06-2024 CK [Catalytic activity/Vol] 9 U/L Low 42-196 [facility] Comment on above: Order Comment: Speci men Type: BLOOD SPECIMENOrdering Facility: [facility] Address: [address] [place] [address] Performed By: #### 2 157-6, 06564-1, 2777-1, 88014-5 ####[facility] [id number] [place] [id number] [place] CONSULT PROGon 12-06-2024 CONSULT PROG Normal [facility] Comprehensive metabolic 2000 panelon 12-06-2024 Albumin [Mass/Vol] 3.3 g/dL Low 3.9-4.9 [facility] Comment on above: Order Comment: Speci men Type: BLOOD SPECIMENOrdering Facility: [facility] Address: [address] [place] [address] Performed By: #### 2 157-6, 56288-4, 2777-1, 53538-7 ####[facility] LABIA [id number] [place] [id number] [place] ALP [Catalytic activity/Vol] 191 U/L High 34-123 [facility] Comment on above: Order Comment: Speci men Type: BLOOD SPECIMENOrdering Facility: [facility] Address: [address] [place] [address] Performed By: #### 2 157-6, 10126-6, 2777-1, 98084-5 ####[facility] LABIA [id number] [place] [address] [place] ALT [Catalytic activity/Vol] 44 U/L High 7-38 [facility] Comment on above: Order Comment: Speci men Type: BLOOD SPECIMENOrdering Facility: [facility] Address: [address] [place] [address] Performed By: #### 2 157-6, 47926-8, 2777-1, 37833-5 ####[facility] [id number] [place] [id number] [place] Anion gap [Moles/Vol] 12 mmol/L Normal 8-15 [facility] Comment on above: Order Comment: Speci men Type: BLOOD SPECIMENOrdering Facility: [facility] Address: [address] [place], [place] [address] Performed By: #### 2 157-6, 05856-7, 277-1, 84762-7 ####[facility] [id number] [place] [id number] [place] AST [Catalytic activity/Vol] 36 U/L High 13-35 [facility] Comment on above: Order Comment: Speci men Type: BLOOD SPECIMENOrdering Facility: [facility] Address: [address] [place] [address] Performed By: #### 2 157-6, 61913-9, 277-, ####[facility] LABCLIA [id number] [address] [address] [place] Bilirubin [Mass/Vol] 0.7 mg/dL Normal 0.2-1.3 [facility] Comment on above: Order Comment: Speci men Type: BLOOD SPECIMENOrdering Facility: [facility] Address: [address] [place], [place] [address] Performed By: #### 2 157-6, 01641-8, 27712-25, ####[facility] LABCLIA [id number] [address] [address] [place] Calcium [Mass/Vol] 8.8 mg/dL Normal 8.5-10.2 [facility] Comment on above: Order Comment: Speci men Type: BLOOD SPECIMENOrdering Facility: [facility] Address: [address] [place], [place] [address] Performed By: #### 2 157-6, 08116-9, 2776-06, ####[facility] LABCLIA [id number] [address] [address] [place] Chloride [Moles/Vol] 102 mmol/L Normal 98-107 [facility] Comment on above: Order Comment: Speci men Type: BLOOD SPECIMENOrdering Facility: [facility] Address: [address] [place], [place] [address] Performed By: #### 2 157-6, 70544-8, 2776-06, ####[facility] LABCLIA [id number] [address] [address] [place] CO2 [Moles/Vol] 22 mmol/L Normal 22-30 [facility] Comment on above: Order Comment: Speci men Type: BLOOD SPECIMENOrdering Facility: [facility] Address: [address] [place], [place] [address] Performed By: #### 2 157-6, 17470-4, 2776-06, ####[facility] LABIA [id number] [address] [address] [place] Creatinine [Mass/Vol] 0.95 mg/dL Normal 0.58-0.96 [facility] Comment on above: Order Comment: Speci men Type: BLOOD SPECIMENOrdering Facility: [facility] Address: [address] [place] [address] Performed By: #### 2 157-6, 81676-9, 2776-06, ####[facility] [id number] [place] [address] [place] Creatinine and Glomerular filtration rate.predicted panel (S/P/Bld) 77 mL/min/1.73m??? Normal >=60 [facility] Comment on above: Order Comment: Dora finch Type: BLOOD SPECIMENOrdering Facility: [facility] Address: [address] [place] [address] Result Comment: Zeny mated Glomerular Filtration Rate (eGFR) is calculated using the 2020 CKD-EPI creatinine equation. This equation utilizes serum creatinine, sex, and age as parameters. The creatinine assay has traceable calibration to isotope dilution-mass spectrometry. Refer to KDIGO guidelines for clinical interpretation. In patients with unstable renal function, e.g. those with acute kidney injury, the eGFR may not accurately reflect actual GFR. Performed By: #### 2 157-6, 79384-6, 2776-06, ####[facility] LABIA [id number] [address] [address] [place] Glucose [Mass/Vol] 136 mg/dL High 74-99 [facility] Comment on above: Order Comment: Florii stef Type: BLOOD SPECIMENOrdering Facility: [facility] Address: [address] [place] [address] Result Comment: The [place] [employer] (ADA) provides guidance for cutoff values for fasting glucose and random glucose. The ADA defines fasting as no caloric intake for at least 8 hours. Fasting plasma glucose results between 100 to 125 mg/dL indicate increased risk for diabetes (prediabetes).Fasting plasma glucose results greater than or equal to 126 mg/dL meet the criteria for diagnosis of diabetes. In the absence of unequivocal hyperglycemia, results should be confirmed by repeat testing. In a patient with classic symptoms of hyperglycemia or hyperglycemic crisis, random plasma glucose results greater than or equal to 200 mg/dL meet the criteria for diagnosis of diabetes.Reference: Standards of Medical Care in Diabetes 2016, [place] [employer]. Diabetes Care. 2016.39(Suppl 1). Performed By: #### 2 157-6, 46536-6, 2776-06, ####[facility] LABIA [id number] [place] [id number] [place] Potassium [Moles/Vol] 3.8 mmol/L Normal 3.7-5.1 [facility] Comment on above: Order Comment: Speci men Type: BLOOD SPECIMENOrdering Facility: [facility] Address: [address] [place] [address] Performed By: #### 2 157-6, 61164-5, 2776-06, ####[facility] LABIA [id number] [place] [id number] [place] Protein [Mass/Vol] 6.6 g/dL Normal 6.3-8.0 [facility] Comment on above: Order Comment: Speci men Type: BLOOD SPECIMENOrdering Facility: [facility] Address: [address] [place], [place] [address] Performed By: #### 2 157-6, 00082-7, 2776-06, ####[facility] LABIA [id number] [place] [id number] [place] Sodium [Moles/Vol] 136 mmol/L Normal 136-144 [facility] Comment on above: Order Comment: Speci men Type: BLOOD SPECIMENOrdering Facility: [facility] Address: [address] [place], [place] [address] Performed By: #### 2 157-6, 45641-6, 2776-06, ####[facility] [id number] [place] [address] [place] Urea nitrogen [Mass/Vol] 12 mg/dL Normal 7-21 [facility] Comment on above: Order Comment: Dora finch Type: BLOOD SPECIMENOrdering Facility: [facility] Address: [address] [place] [address] Performed By: #### 2 157-6, 43592-2, 2776-, ####[facility] [id number] [place] [address] [place] Fact Xa PPP-aCncon 5 Coagulation factor X activated act Coag Qn (PPP) 0.64 IU/mL High <0.10 [facility] Comment on above: Order Comment: Dora finch Type: BLOOD SPECIMENOrdering Facility: [facility] Address: [address] [place] [address] Result Comment: The recommended therapeutic range for treatment of venous and arterial thrombosis with intravenous unfractionated heparin is an anti Xa activity level of 0.3 to 0.7 IU/mL. In patients with concomitant therapy with thrombolytic agents and/or platelet glycoprotein IIb/IIIa antagonists, the recommended therapeutic range is an anti Xa activity level of 0.2 to 0.5 IU/mL. Performed By: #### 3 217-7 ####[facility] [id number] [place] [address] [place] Coagulation factor X activated act Coag Qn (PPP) 0.48 IU/mL High <0.10 [facility] Comment on above: Order Comment: Dora finch Type: BLOOD SPECIMENOrdering Facility: [facility] Address: [address] [place] [address] Result Comment: The recommended therapeutic range for treatment of venous and arterial thrombosis with intravenous unfractionated heparin is an anti Xa activity level of 0.3 to 0.7 IU/mL. In patients with concomitant therapy with thrombolytic agents and/or platelet glycoprotein IIb/IIIa antagonists, the recommended therapeutic range is an anti Xa activity level of 0.2 to 0.5 IU/mL. Performed By: #### 3 217-7 ####[facility] LABIA [id number] [address] [place] HISTORY PHYSICALon HISTORY PHYSICAL Normal [facility] Magnesium SerPl-mCncon 12-06 Magnesium [Mass/Vol] 1.5 mg/dL Low 1.7-2.3 [facility] Comment on above: Order Comment: Dora finch Type: BLOOD SPECIMENOrdering Facility: [facility] Address: [address] [place] [address] Performed By: #### 2 157-6, 00877-2, 2777-1, 82022-0 ####[facility] LABIA [id number] [place] [address] [place] NUTRITIONon 12-06-2024 NUTRITION Normal [facility] PT EDon 12-06-2024 PT ED Normal [facility] PT panel Coag (PPP)on 2024 INR Coag (PPP) [Relative time] 1.1 {INR} Normal 0.9-1.3 [facility] Comment on above: Order Comment: Dora finch Type: BLOOD SPECIMENOrdering Facility: [facility] Address: [address] [place] [address] Result Comment: Yamileth min K Antagonist (VKA) Therapeutic Range: INR 2 to 3 (Target INR of 2.5)Note: For patients treated with VKA drugs, such as warfarin, the [place] [employer] 2012 Guideline recommends a therapeutic INR range of 2 to 3 (target INR of 2.5). This recommendation includes high-risk patients with antiphospholipid syndrome with previous arterial or venous thromboembolism, current-generation mechanical or bioprosthetic aortic heart valve replacement.Note: Patients with mechanical aortic valve replacement and additional risk factors for thromboembolic events (atrial fibrillation, previous thromboembolism, LV dysfunction, hypercoagulable conditions) or an older generation mechanical AVR (i.e., ball in-Cage) or any mechanical MVR should have a INR therapeutic range of 2.5 to 3.5 (target INR of 3).Rufina GH, et al. Chest 2012, 141:7S-47SNishimura RA, et al. [facility] 2017, 70: 252-289 Performed By: #### 1 4979-9, 55856-6 ####[facility] LABCLIA [id number] [address] [address] [place] PT Coag (PPP) [Time] 11.9 s Normal 9.7-13.0 [facility] Comment on above: Order Comment: Speci men Type: BLOOD SPECIMENOrdering Facility: [facility] Address: [address] [place] [address] Performed By: #### 1 4979-9, 01684-4 ####[facility] LABCLIA [id number] [place] [id number] [place] PTT, ANTICOAGULANT THERAPYon 12-06-2024 aPTT Coag (PPP) [Time] 58.4 s High 23.0-32.4 [facility] Comment on above: Order Comment: Speci men Type: BLOOD SPECIMENOrdering Facility: [facility] Address: [address] [place] [address] Performed By: #### P TTAC ####[facility] LABIA [id number] [place] [id number] [place] Phosphate SerPl-mCncon 12-06 Phosphate [Mass/Vol] 2.8 mg/dL Normal 2.7-4.8 [facility] Comment on above: Order Comment: Speci men Type: BLOOD SPECIMENOrdering Facility: [facility] Address: [address] [place] [address] Performed By: #### 2 157-6, 93892-7, 2777-1, 80898-8 ####[facility] LABIA [id number] [place] [id number] [place] aPTT PPPon 12-06-2024 aPTT Coag (PPP) [Time] 53.0 s High 23.0-32.4 [facility] Comment on above: Order Comment: Speci men Type: BLOOD SPECIMENOrdering Facility: [facility] Address: [address] [place] [address] Performed By: #### 1 4979-9, 03706-3 ####[facility] LABCLIA [id number] [place] [address] [place] ALLIED HEALTHon 12-05-2024 ALLIED HEALTH Normal [facility] ANES POSTPROC EVALon 025 ANES POSTPROC EVAL Normal [facility] ANES PRE-OPon 12-05-2024 ANES PRE-OP Normal [facility] CASE MANAGEMon 12-05-2024 CASE MANAGEM Normal [facility] CBC panel Auto (Bld)on 12-05 RBC (Bld) [#/Vol] 3.55 10*6/uL Low 3.90-5.20 [facility] Comment on above: Order Comment: Speci men Type: BLOOD SPECIMENOrdering Facility: [facility] Address: [address] [place] [address] Performed By: #### 5 8410-2 ####[facility] LABCLIA [id number] [place] [address] [place] CONSULT PROGon 12-05-2024 CONSULT PROG Normal [facility] CONSULT PROG Normal [facility] CONSULT PROG Normal [facility] Comprehensive metabolic 2000 panelon 12-05-2024 Albumin [Mass/Vol] 3.4 g/dL Low 3.9-4.9 [facility] Comment on above: Order Comment: Speci men Type: BLOOD SPECIMENOrdering Facility: [facility] Address: [address] [place] [address] Performed By: #### 2 4323-8, 2777-1, 63885-1 ####[facility] LABCLIA [id number] [place] [address] [place] ALP [Catalytic activity/Vol] 189 U/L High 34-123 [facility] Comment on above: Order Comment: Speci men Type: BLOOD SPECIMENOrdering Facility: [facility] Address: [address] [place] [address] Performed By: #### 2 4323-8, 2776-06, ####[facility] LABCLIA [id number] [facility] [place] [address] [place] ALT [Catalytic activity/Vol] 41 U/L High 7-38 [facility] Comment on above: Order Comment: Speci men Type: BLOOD SPECIMENOrdering Facility: [facility] Address: [address] [place] [address] Performed By: #### 2 4323-8, 2776-06, ####[facility] LABCLIA [id number] [place] [address] [place] Anion gap [Moles/Vol] 12 mmol/L Normal 8-15 [facility] Comment on above: Order Comment: Speci men Type: BLOOD SPECIMENOrdering Facility: [facility] Address: [address] [place] [address] Performed By: #### 2 4323-8, 2776-06, ####[facility] LABCLIA [id number] [place] [address] [place] AST [Catalytic activity/Vol] 33 U/L Normal 13-35 [facility] Comment on above: Order Comment: Speci men Type: BLOOD SPECIMENOrdering Facility: [facility] Address: [address] [place], [place] [address] Performed By: #### 2 4323-8, 2776-06, ####[facility] LABCLIA [id number] [facility] [address] [address] [place] Bilirubin [Mass/Vol] 0.8 mg/dL Normal 0.2-1.3 [facility] Comment on above: Order Comment: Speci men Type: BLOOD SPECIMENOrdering Facility: [facility] Address: [address] [place] [address] Performed By: #### 2 4323-8, 2776-06, ####[facility] LABCLIA [id number] [facility] [address] [place] [address] [place] Calcium [Mass/Vol] 9.7 mg/dL Normal 8.5-10.2 [facility] Comment on above: Order Comment: Speci men Type: BLOOD SPECIMENOrdering Facility: [facility] Address: [address] [place], [place] [address] Performed By: #### 2 4323-8, 2776-06, ####[facility] LABCLIA [id number] [address] [address] [place] Chloride [Moles/Vol] 99 mmol/L Normal 98-107 [facility] Comment on above: Order Comment: Speci men Type: BLOOD SPECIMENOrdering Facility: [facility] Address: [address] [place], [place] [address] Performed By: #### 2 4323-8, 2776-06, ####[facility] LABCLIA [id number] [address] [address] [place] CO2 [Moles/Vol] 25 mmol/L Normal 22-30 [facility] Comment on above: Order Comment: Speci men Type: BLOOD SPECIMENOrdering Facility: [facility] Address: [address] [place] [address] Performed By: #### 2 4323-8, 2776-06, ####[facility] LABCLIA [id number] [facility] [address] [place] [address] [place] Creatinine [Mass/Vol] 0.93 mg/dL Normal 0.58-0.96 [facility] Comment on above: Order Comment: Speci men Type: BLOOD SPECIMENOrdering Facility: [facility] Address: [address] [place] [id number] Performed By: #### 2 4323-8, 2777-1, ####[facility] LABIA [id number] [place] [id number] [place] Creatinine and Glomerular filtration rate.predicted panel (S/P/Bld) 79 mL/min/1.73m??? Normal >=60 [facility] Comment on above: Order Comment: Dora finch Type: BLOOD SPECIMENOrdering Facility: [facility] Address: [address] [place] [address] Result Comment: Zeny mated Glomerular Filtration Rate (eGFR) is calculated using the 2020 CKD-EPI creatinine equation. This equation utilizes serum creatinine, sex, and age as parameters. The creatinine assay has traceable calibration to isotope dilution-mass spectrometry. Refer to KDIGO guidelines for clinical interpretation. In patients with unstable renal function, e.g. those with acute kidney injury, the eGFR may not accurately reflect actual GFR. Performed By: #### 2 4323-8, 2777-, ####[facility] LABIA [id number] [place] [id number] [place] Glucose [Mass/Vol] 91 mg/dL Normal 74-99 [facility] Comment on above: Order Comment: Dora finch Type: BLOOD SPECIMENOrdering Facility: [facility] Address: [address] [place] [address] Result Comment: The [place] [employer] (ADA) provides guidance for cutoff values for fasting glucose and random glucose. The ADA defines fasting as no caloric intake for at least 8 hours. Fasting plasma glucose results between 100 to 125 mg/dL indicate increased risk for diabetes (prediabetes).Fasting plasma glucose results greater than or equal to 126 mg/dL meet the criteria for diagnosis of diabetes. In the absence of unequivocal hyperglycemia, results should be confirmed by repeat testing. In a patient with classic symptoms of hyperglycemia or hyperglycemic crisis, random plasma glucose results greater than or equal to 200 mg/dL meet the criteria for diagnosis of diabetes.Reference: Standards of Medical Care in Diabetes 2016, [place] [employer]. Diabetes Care. 2016.39(Suppl 1). Performed By: #### 2 4323-8, 2776-06, ####[facility] LABCLIA [id number] [address] [address] [place] Potassium [Moles/Vol] 3.8 mmol/L Normal 3.7-5.1 [facility] Comment on above: Order Comment: Speci men Type: BLOOD SPECIMENOrdering Facility: [facility] Address: [address] [place], [place] [address] Performed By: #### 2 4323-8, 2776-06, ####[facility] LABIA [id number] [address] [address] [place] Protein [Mass/Vol] 6.9 g/dL Normal 6.3-8.0 [facility] Comment on above: Order Comment: Speci men Type: BLOOD SPECIMENOrdering Facility: [facility] Address: [address] [place], [place] [address] Performed By: #### 2 4323-8, 2776-06, ####[facility] LABIA [id number] [address] [address] [place] Sodium [Moles/Vol] 136 mmol/L Normal 136-144 [facility] Comment on above: Order Comment: Speci men Type: BLOOD SPECIMENOrdering Facility: [facility] Address: [address] [place] [address] Performed By: #### 2 4323-8, 2776-06, ####[facility] LABIA [id number] [address] [address] [place] Urea nitrogen [Mass/Vol] 9 mg/dL Normal 7-21 [facility] Comment on above: Order Comment: Speci men Type: BLOOD SPECIMENOrdering Facility: [facility] Address: [address] [place] [address] Performed By: #### 2 4323-8, 2776-06, ####[facility] LABCLIA [id number] [place] [address] [place] Fact Xa PPP-aCncon 5 Coagulation factor X activated act Coag Qn (PPP) <0.10 Normal <0.10 [facility] Comment on above: Order Comment: Dora finch Type: BLOOD SPECIMENOrdering Facility: [facility] Address: [address] [place] [address] Result Comment: The recommended therapeutic range for treatment of venous and arterial thrombosis with intravenous unfractionated heparin is an anti Xa activity level of 0.3 to 0.7 IU/mL. In patients with concomitant therapy with thrombolytic agents and/or platelet glycoprotein IIb/IIIa antagonists, the recommended therapeutic range is an anti Xa activity level of 0.2 to 0.5 IU/mL. Performed By: #### 3 4528-0, 78581-5, 3217-7 ####[facility] LABIA [id number] [address] [place] Coagulation factor X activated act Coag Qn (PPP) 0.91 IU/mL High <0.10 [facility] Comment on above: Order Comment: Dora finch Type: BLOOD SPECIMENOrdering Facility: [facility] Address: [address] [place] [address] Result Comment: The recommended therapeutic range for treatment of venous and arterial thrombosis with intravenous unfractionated heparin is an anti Xa activity level of 0.3 to 0.7 IU/mL. In patients with concomitant therapy with thrombolytic agents and/or platelet glycoprotein IIb/IIIa antagonists, the recommended therapeutic range is an anti Xa activity level of 0.2 to 0.5 IU/mL. Performed By: #### 3 217-7 ####[facility] LABCLIA [id number] [address] [place] Coagulation factor X activated act Coag Qn (PPP) >1.50 High <0.10 [facility] Comment on above: Order Comment: Dora finch Type: BLOOD SPECIMENOrdering Facility: [facility] Address: [address] [place] [address] Result Comment: Extr ruben high heparin anti-Xa value, please verify that the specimen was not drawn through a heparin-containing line or port, as this could influence the anti-Xa level. The value could also be influenced by direct Xa inhibitor drugs such as rivaroxaban, apixaban or edoxaban.Sample checked for clot.The recommended therapeutic range for treatment of venous and arterial thrombosis with intravenous unfractionated heparin is an anti Xa activity level of 0.3 to 0.7 IU/mL. In patients with concomitant therapy with thrombolytic agents and/or platelet glycoprotein IIb/IIIa antagonists, the recommended therapeutic range is an anti Xa activity level of 0.2 to 0.5 IU/mL. Performed By: #### 3 217-7, 58534-7 ####[facility] LABCLIA [id number] [place] [address] [place] HISTORY PHYSICALon HISTORY PHYSICAL Normal [facility] Magnesium SerPl-mCncon 12-05 Magnesium [Mass/Vol] 1.8 mg/dL Normal 1.7-2.3 [facility] Comment on above: Order Comment: Speci men Type: BLOOD SPECIMENOrdering Facility: [facility] Address: [address] [place] [address] Performed By: #### 2 4323-8, 2777-1, 91294-2 ####[facility] LABIA [id number] [place] [address] [place] NURSING PROGon 12-05-2024 NURSING PROG Normal [facility] NURSING PROG Normal [facility] NUTRITIONon 12-05-2024 NUTRITION Normal [facility] PT panel Coag (PPP)on 2024 INR Coag (PPP) [Relative time] 1.1 {INR} Normal 0.9-1.3 [facility] Comment on above: Order Comment: Speci men Type: BLOOD SPECIMENOrdering Facility: [facility] Address: [address] [place] [address] Result Comment: Yamileth min K Antagonist (VKA) Therapeutic Range: INR 2 to 3 (Target INR of 2.5)Note: For patients treated with VKA drugs, such as warfarin, the [employer] 2012 Guideline recommends a therapeutic INR range of 2 to 3 (target INR of 2.5). This recommendation includes high-risk patients with antiphospholipid syndrome with previous arterial or venous thromboembolism, current-generation mechanical or bioprosthetic aortic heart valve replacement.Note: Patients with mechanical aortic valve replacement and additional risk factors for thromboembolic events (atrial fibrillation, previous thromboembolism, LV dysfunction, hypercoagulable conditions) or an older generation mechanical AVR (i.e., ball in-Cage) or any mechanical MVR should have a INR therapeutic range of 2.5 to 3.5 (target INR of 3).Rufina GH, et al. Chest 2012, 141:7S-47SNishimura RA, et al. [facility] 2017, 70: 252-289 Performed By: #### 3 4528-0, 51580-7, 3217-7 ####[facility] [id number] [place] [address] [place] PT Coag (PPP) [Time] 11.5 s Normal 9.7-13.0 [facility] Comment on above: Order Comment: Dora finch Type: BLOOD SPECIMENOrdering Facility: [facility] Address: [address] [place] [address] Performed By: #### 3 4528-0, 04747-9, 3217-7 ####[facility] [id number] [address] [place] INR Coag (PPP) [Relative time] 1.2 {INR} Normal 0.9-1.3 [facility] Comment on above: Order Comment: Dora finch Type: BLOOD SPECIMENOrdering Facility: [facility] Address: [address] [place] [address] Result Comment: Yamileth min K Antagonist (VKA) Therapeutic Range: INR 2 to 3 (Target INR of 2.5)Note: For patients treated with VKA drugs, such as warfarin, the [employer] 2012 Guideline recommends a therapeutic INR range of 2 to 3 (target INR of 2.5). This recommendation includes high-risk patients with antiphospholipid syndrome with previous arterial or venous thromboembolism, current-generation mechanical or bioprosthetic aortic heart valve replacement.Note: Patients with mechanical aortic valve replacement and additional risk factors for thromboembolic events (atrial fibrillation, previous thromboembolism, LV dysfunction, hypercoagulable conditions) or an older generation mechanical AVR (i.e., ball in-Cage) or any mechanical MVR should have a INR therapeutic range of 2.5 to 3.5 (target INR of 3).Rufina POND, et al. Chest 2012, 141:7S-47SNishimcindy RA, et al. [facility] 2017, 70: 252-289 Performed By: #### 3 217-7, 93126-4 ####[facility] LABIA [id number] [place] [address] [place] PT Coag (PPP) [Time] 12.4 s Normal 9.7-13.0 [facility] Comment on above: Order Comment: Speci men Type: BLOOD SPECIMENOrdering Facility: [facility] Address: [address] [place] [address] Performed By: #### 3 217-7, 37387-9 ####[facility] [id number] [place] [id number] [place] Phosphate SerPl-mCncon 12-05 Phosphate [Mass/Vol] 3.9 mg/dL Normal 2.7-4.8 [facility] Comment on above: Order Comment: Speci men Type: BLOOD SPECIMENOrdering Facility: [facility] Address: [address] [place] [address] Performed By: #### 2 4323-8, 2777-1, 20843-0 ####[facility] [id number] [place] [id number] [place] aPTT PPPon 12-05-2024 aPTT Coag (PPP) [Time] 26.2 s Normal 23.0-32.4 [facility] Comment on above: Order Comment: Speci men Type: BLOOD SPECIMENOrdering Facility: [facility] Address: [address] [place] [address] Performed By: #### 3 4528-0, 69592-4, 3217-7 ####[facility] LABCLIA [id number] [place] [id number] [place] aPTT Coag (PPP) [Time] s High 23.0-32.4 [facility] Comment on above: Order Comment: Speci men Type: BLOOD SPECIMENOrdering Facility: [facility] Address: [address] [place] [address] Result Comment: Samp le checked for clot.Result rechecked. Performed By: #### 1 4979-9 ####[facility] LABCLIA [id number] [place] [address] [place] Culture, Blood (WB)on 2024 CUB Blood cultures x2, f rom two different sites No growth in 5 days. Normal [facility] Comment on above: Performed By: #### L 500.4050, M200.1000, L300.3900, L300.4310, L100.0100, L503.6005 ####[facility] [address] [place], [address] Urine Cultureon 11-25-2024 URC Normal [facility] Comment on above: Performed By: #### M 100.678, L400.0001, M100.2200 ####[facility] [address] [place], [address] Basic Metabolic Profile (BMP )on 11-24-2024 BUN Normal 4-19 [facility] Comment on above: Result Comment: Canc elled via OM: Order cancelled - Patient discharged Performed By: #### L 100.0100, L500.2500 ####[facility] [address] [place], [address] BUN/CRE Normal 10-20 [facility] Comment on above: Result Comment: Canc elled via OM: Order cancelled - Patient discharged Performed By: #### L 100.0100, L500.2500 ####[facility] [address] [place], [address] Calcium Normal 7.6-11.0 [facility] Comment on above: Result Comment: Canc elled via OM: Order cancelled - Patient discharged Performed By: #### L 100.0100, L500.2500 ####[facility] [address] [place], [address] CL Normal 98-108 [facility] Comment on above: Result Comment: Canc elled via OM: Order cancelled - Patient discharged Performed By: #### L 100.0100, L500.2500 ####[facility] [address] [place], [address] CO2 Normal 21.0-32.0 [facility] Comment on above: Result Comment: Canc elled via OM: Order cancelled - Patient discharged Performed By: #### L 100.0100, L500.2500 ####[facility] [address] [place], [address] CREAT,SERUM Normal 0.70-1.20 [facility] Comment on above: Result Comment: Canc elled via OM: Order cancelled - Patient discharged Performed By: #### L 100.0100, L500.2500 ####[facility] [address] [place], [address] eGFR Normal >60 [facility] Comment on above: Result Comment: Canc elled via OM: Order cancelled - Patient discharged Performed By: #### L 100.0100, L500.2500 ####[facility] [address] [place], [address] GAP Normal 5-15 [facility] Comment on above: Result Comment: Canc elled via OM: Order cancelled - Patient discharged Performed By: #### L 100.0100, L500.2500 ####[facility] [address] [place], [address] GLU Normal 70-99 [facility] Comment on above: Result Comment: Canc elled via OM: Order cancelled - Patient discharged Performed By: #### L 100.0100, L500.2500 ####[facility] [address] [place], [address] Potassium Normal 3.3-5.1 [facility] Comment on above: Result Comment: Canc elled via OM: Order cancelled - Patient discharged Performed By: #### L 100.0100, L500.2500 ####[facility] [address] [place], [address] Basic Metabolic Profile (BMP) Normal 133-145 [facility] Comment on above: Result Comment: Canc elled via OM: Order cancelled - Patient discharged Performed By: #### L 100.0100, L500.2500 ####[facility] [address] [place], [address] CBC W/Diff, Automatedon 05-3 Absolute Neut Normal 2.0-7.7 [facility] Comment on above: Result Comment: Canc elled via OM: Order cancelled - Patient discharged Performed By: #### L 100.0100, L500.2500 ####[facility] [address] [place], [address] HCT Normal 37-47 [facility] Comment on above: Result Comment: Canc elled via OM: Order cancelled - Patient discharged Performed By: #### L 100.0100, L500.2500 ####[facility] [address] [place], [address] HGB Normal 12.0-15.0 [facility] Comment on above: Result Comment: Canc elled via OM: Order cancelled - Patient discharged Performed By: #### L 100.0100, L500.2500 ####[facility] [address] [place], [address] MCH Normal 27.0-32.0 [facility] Comment on above: Result Comment: Canc elled via OM: Order cancelled - Patient discharged Performed By: #### L 100.0100, L500.2500 ####[facility] [address] [place], [address] MCHC Normal 32-36 [facility] Comment on above: Result Comment: Canc elled via OM: Order cancelled - Patient discharged Performed By: #### L 100.0100, L500.2500 ####[facility] [address] [place], [address] MCV Normal 81-99 [facility] Comment on above: Result Comment: Canc elled via OM: Order cancelled - Patient discharged Performed By: #### L 100.0100, L500.2500 ####[facility] [address] [place], [address] NEUT% Normal 47-70 [facility] Comment on above: Result Comment: Canc elled via OM: Order cancelled - Patient discharged Performed By: #### L 100.0100, L500.2500 ####[facility] [address] [place], [address] PLT Normal 150-450 [facility] Comment on above: Result Comment: Canc elled via OM: Order cancelled - Patient discharged Performed By: #### L 100.0100, L500.2500 ####[facility] [address] [place], [address] RBC Normal 4.2-5.4 [facility] Comment on above: Result Comment: Canc elled via OM: Order cancelled - Patient discharged Performed By: #### L 100.0100, L500.2500 ####[facility] [address] [place], [address] RDW CV Normal 11.6-14.6 [facility] Comment on above: Result Comment: Canc elled via OM: Order cancelled - Patient discharged Performed By: #### L 100.0100, L500.2500 ####[facility] [address] [place], [address] RDW SD Normal 35.1-43.9 [facility] Comment on above: Result Comment: Canc elled via OM: Order cancelled - Patient discharged Performed By: #### L 100.0100, L500.2500 ####[facility] [address] [place], [address] WBC Normal 4.4-11.0 [facility] Comment on above: Result Comment: Canc elled via OM: Order cancelled - Patient discharged Performed By: #### L 100.0100, L500.2500 ####[facility] [address] [place], [address] Basic Metabolic Profile (BMP )on 11-23-2024 BUN/CRE 7.9 RATIO Low 10-20 [facility] Comment on above: Performed By: #### L 100.0100, L500.2500 ####[facility] [address] [place], [address] Calcium [Mass/Vol] 7.5 mg/dL Low 7.6-11.0 [facility] Comment on above: Performed By: #### L 100.0100, L500.2500 ####[facility] [address] [place], [address] Chloride [Moles/Vol] 111 mmol/L High 98-108 [facility] Comment on above: Performed By: #### L 100.0100, L500.2500 ####[facility] [address] [place], [address] CO2 [Moles/Vol] 18.5 mmol/L Low 21.0-32.0 [facility] Comment on above: Performed By: #### L 100.0100, L500.2500 ####[facility] [address] [place], [address] Creatinine [Mass/Vol] 0.91 mg/dL Normal 0.70-1.20 [facility] Comment on above: Performed By: #### L 100.0100, L500.2500 ####[facility] [address] [place], [address] ECRCL 90.47 ml/min Normal 50-250 [facility] Comment on above: Performed By: #### L 100.0100, L500.2500 ####[facility] [address] [place], [address] GAP 9 Normal 5-15 [facility] Comment on above: Performed By: #### L 100.0100, L500.2500 ####[facility] [address] [place], [address] GFR/1.73 sq M.predicted among non-blacks MDRD (S/P/Bld) [Vol rate/Area] 81 mL/min/{1.73_m2} Normal >60 [facility] Comment on above: Result Comment: mL/m in/1.73m2 CKD-EPI Creatinine Equation (2020) Performed By: #### L 100.0100, L500.2500 ####[facility] [address] [place], [address] Glucose [Mass/Vol] 111 mg/dL High 70-99 [facility] Comment on above: Performed By: #### L 100.0100, L500.2500 ####[facility] [address] [place], [address] Potassium [Moles/Vol] 3.2 mmol/L Low 3.3-5.1 [facility] Comment on above: Performed By: #### L 100.0100, L500.2500 ####[facility] [address] [place], [address] Sodium [Moles/Vol] 139 mmol/L Normal 133-145 [facility] Comment on above: Performed By: #### L 100.0100, L500.2500 ####[facility] [address] [place], [address] Urea nitrogen [Mass/Vol] 7 mg/dL Normal 4-19 [facility] Comment on above: Performed By: #### L 100.0100, L500.2500 ####[facility] [address] [place], [address] CBC W/Diff, Automatedon 10-27 OVALOCYTE 1+ Normal [facility] Comment on above: Performed By: #### L 100.0100, L500.2500 ####[facility] [address] [place], [address] PLT EST A Normal ADEQ [facility] Comment on above: Performed By: #### L 100.0100, L500.2500 ####[facility] [address] [place], [address] ATYPICAL LYMPH 1+ Normal [facility] Comment on above: Performed By: #### L 100.0100, L500.2500 ####[facility] [address] [place], [address] Basic Metabolic Profile (BMP )on 11-22-2024 BUN/CRE 14.4 RATIO Normal 10-20 [facility] Comment on above: Performed By: #### L 501.5200, L501.2300, L100.0100, L500.2500 ####[facility] [address] [place], [address] Calcium [Mass/Vol] 8.5 mg/dL Normal 7.6-11.0 [facility] Comment on above: Performed By: #### L 501.5200, L501.2300, L100.0100, L500.2500 ####[facility] [address] [place], [address] Chloride [Moles/Vol] 107 mmol/L Normal 98-108 [facility] Comment on above: Performed By: #### L 501.5200, L501.2300, L100.0100, L500.2500 ####[facility] [address] [place], [address] CO2 [Moles/Vol] 18.4 mmol/L Low 21.0-32.0 [facility] Comment on above: Performed By: #### L 501.5200, L501.2300, L100.0100, L500.2500 ####[facility] [address] [place], [address] Creatinine [Mass/Vol] 1.24 mg/dL High 0.70-1.20 [facility] Comment on above: Performed By: #### L 501.5200, L501.2300, L100.0100, L500.2500 ####[facility] [address] [place], [address] ECRCL 66.39 ml/min Normal 50-250 [facility] Comment on above: Performed By: #### L 501.5200, L501.2300, L100.0100, L500.2500 ####[facility] [address] [place], [address] GAP 11 Normal 5-15 [facility] Comment on above: Performed By: #### L 501.5200, L501.2300, L100.0100, L500.2500 ####[facility] [address] [place], [address] GFR/1.73 sq M.predicted among non-blacks MDRD (S/P/Bld) [Vol rate/Area] 56 mL/min/{1.73_m2} Low >60 [facility] Comment on above: Result Comment: mL/m in/1.73m2 CKD-EPI Creatinine Equation (2020) Performed By: #### L 501.5200, L501.2300, L100.0100, L500.2500 ####[facility] [address] [place], [address] Glucose [Mass/Vol] 101 mg/dL High 70-99 [facility] Comment on above: Performed By: #### L 501.5200, L501.2300, L100.0100, L500.2500 ####[facility] [address] [place], [address] Potassium [Moles/Vol] 3.4 mmol/L Normal 3.3-5.1 [facility] Comment on above: Performed By: #### L 501.5200, L501.2300, L100.0100, L500.2500 ####[facility] [address] [place], [address] Sodium [Moles/Vol] 137 mmol/L Normal 133-145 [facility] Comment on above: Performed By: #### L 501.5200, L501.2300, L100.0100, L500.2500 ####[facility] [address] [place], [address] Urea nitrogen [Mass/Vol] 18 mg/dL Normal 4-19 [facility] Comment on above: Performed By: #### L 501.5200, L501.2300, L100.0100, L500.2500 ####[facility] [address] [place], [address] CBC W/Diff, Automatedon 05-2 PATH REV Reviewed Normal [facility] Comment on above: Result Comment: SEE REPORT IN PATIENT'S EMR AMENDED REPORT 11/22/24 1421 PATH REV previously reported as: October Performed By: #### L 100.0100, M200.1000, L501.4021, L503.7505, L500.4050, L300.4310, L300.3900, L503.6005 ####[facility] [address] [place], [address] Absolute Lymph 1.71 X10 3/uL Normal 0.83-4.51 [facility] Comment on above: Performed By: #### L 501.5200, L501.2300, L100.0100, L500.2500 ####[facility] [address] [place], [address] Absolute Neut 3.9 X10 3/uL Normal 2.0-7.7 [facility] Comment on above: Performed By: #### L 501.5200, L501.2300, L100.0100, L500.2500 ####[facility] [address] [place], [address] Basophils/100 WBC (Bld) 0.6 % Normal 0-1 [facility] Comment on above: Performed By: #### L 501.5200, L501.2300, L100.0100, L500.2500 ####[facility] [address] [place], [address] Eosinophils/100 WBC (Bld) 3.0 % Normal 0-5 [facility] Comment on above: Performed By: #### L 501.5200, L501.2300, L100.0100, L500.2500 ####[facility] [address] [place], [address] Erythrocyte distribution width (RBC) [Ratio] 16.2 % High 11.6-14.6 [facility] Comment on above: Performed By: #### L 501.5200, L501.2300, L100.0100, L500.2500 ####[facility] [address] [place], [address] Hematocrit (Bld) [Volume fraction] 27.7 % Low 37-47 [facility] Comment on above: Performed By: #### L 501.5200, L501.2300, L100.0100, L500.2500 ####[facility] [address] [place], [address] Hemoglobin (Bld) [Mass/Vol] 8.7 g/dL Low 12.0-15.0 [facility] Comment on above: Performed By: #### L 501.5200, L501.2300, L100.0100, L500.2500 ####[facility] [address] [place], [address] IG% 0.300 Normal 0.0-0.9 [facility] Comment on above: Result Comment: IG% - Immature Granulocytes (promyelocytes, myelocytes andmetamyelocytes) > 1% indicates that a LEFT SHIFT is Present. Performed By: #### L 501.5200, L501.2300, L100.0100, L500.2500 ####[facility] [address] [place], [address] Lymphocytes/100 WBC (Bld) 26.9 % Normal 19-41 [facility] Comment on above: Performed By: #### L 501.5200, L501.2300, L100.0100, L500.2500 ####[facility] [address] [place], [address] MCH (RBC) [Entitic mass] 25.1 pg Low 27.0-32.0 [facility] Comment on above: Performed By: #### L 501.5200, L501.2300, L100.0100, L500.2500 ####[facility] [address] [place], [address] MCHC (RBC) [Mass/Vol] 31.4 g/dL Low 32-36 [facility] Comment on above: Performed By: #### L 501.5200, L501.2300, L100.0100, L500.2500 ####[facility] [address] [place], [address] MCV (RBC) [Entitic vol] 79.8 fL Low 81-99 [facility] Comment on above: Performed By: #### L 501.5200, L501.2300, L100.0100, L500.2500 ####[facility] [address] [place], [address] Monocytes/100 WBC (Bld) 8.2 % Normal 0-10 [facility] Comment on above: Performed By: #### L 501.5200, L501.2300, L100.0100, L500.2500 ####[facility] [address] [place], [address] Neutrophils/100 WBC (Bld) 61.0 % Normal 47-70 [facility] Comment on above: Performed By: #### L 501.5200, L501.2300, L100.0100, L500.2500 ####[facility] [address] [place], [address] Nucleated RBC (Bld) [#/Vol] 0 10*3/uL Normal 0-5 [facility] Comment on above: Performed By: #### L 501.5200, L501.2300, L100.0100, L500.2500 ####[facility] [address] [place], [address] Platelet mean volume (Bld) [Entitic vol] 8.8 fL Normal 6.2-12.0 [facility] Comment on above: Performed By: #### L 501.5200, L501.2300, L100.0100, L500.2500 ####[facility] [address] [place], [address] Platelets (Bld) [#/Vol] 351 10*3/uL Normal 150-450 [facility] Comment on above: Performed By: #### L 501.5200, L501.2300, L100.0100, L500.2500 ####[facility] [address] [place], [address] RBC (Bld) [#/Vol] 3.47 10*6/uL Low 4.2-5.[address] [facility] Comment on above: Performed By: #### L 501.5200, L501.2300, L100.0100, L500.2500 ####[facility] [address] [place], [address] RDW SD 46.9 fl High 35.1-43.9 [facility] Comment on above: Performed By: #### L 501.5200, L501.2300, L100.0100, L500.2500 ####[facility] [address] [place], [address] WBC (Bld) [#/Vol] 6.4 10*3/uL Normal 4.4-11.0 [facility] Comment on above: Performed By: #### L 501.5200, L501.2300, L100.0100, L500.2500 ####[facility] [address] [place], [address] Magnesiumon 11-22-2024 Magnesium [Mass/Vol] 1.3 mg/dL Low 1.5-2.2 [facility] Comment on above: Performed By: #### L 501.5200, L501.2300, L100.0100, L500.2500 ####[facility] [address] [place], [address] Phosphoruson 11-22-2024 Phosphate [Mass/Vol] 2.7 mg/dL Normal 2.7-4.5 [facility] Comment on above: Performed By: #### L 501.5200, L501.2300, L100.0100, L500.2500 ####[facility] [address] [place], [address] Basic Metabolic Profile (BMP )on 11-21-2024 BUN/CRE 11.9 RATIO Normal 10-20 [facility] Comment on above: Performed By: #### L 100.0100, L500.2500 ####[facility] [address] [place], [address] Calcium [Mass/Vol] 9.1 mg/dL Normal 7.6-11.0 [facility] Comment on above: Performed By: #### L 100.0100, L500.2500 ####[facility] [address] [place], [address] Chloride [Moles/Vol] 95 mmol/L Low 98-108 [facility] Comment on above: Performed By: #### L 100.0100, L500.2500 ####[facility] [address] [place], [address] CO2 [Moles/Vol] 15.6 mmol/L Low 21.0-32.0 [facility] Comment on above: Performed By: #### L 100.0100, L500.2500 ####[facility] [address] [place], [address] Creatinine [Mass/Vol] 2.69 mg/dL High 0.70-1.20 [facility] Comment on above: Performed By: #### L 100.0100, L500.2500 ####[facility] [address] [place], [address] ECRCL 30.60 ml/min Low 50-250 [facility] Comment on above: Performed By: #### L 100.0100, L500.2500 ####[facility] [address] [place], [address] GAP 17 High 5-15 [facility] Comment on above: Performed By: #### L 100.0100, L500.2500 ####[facility] [address] [place], [address] GFR/1.73 sq M.predicted among non-blacks MDRD (S/P/Bld) [Vol rate/Area] 22 mL/min/{1.73_m2} Low >60 [facility] Comment on above: Result Comment: mL/m in/1.73m2 CKD-EPI Creatinine Equation (2020) Performed By: #### L 100.0100, L500.2500 ####[facility] [address] [place], [address] Glucose [Mass/Vol] 127 mg/dL High 70-99 [facility] Comment on above: Performed By: #### L 100.0100, L500.2500 ####[facility] [address] [place], [address] Potassium [Moles/Vol] 3.6 mmol/L Normal 3.3-5.1 [facility] Comment on above: Performed By: #### L 100.0100, L500.2500 ####[facility] [address] [place], [address] Sodium [Moles/Vol] 128 mmol/L Low 133-145 [facility] Comment on above: Performed By: #### L 100.0100, L500.2500 ####[facility] [address] [place], [address] Urea nitrogen [Mass/Vol] 32 mg/dL High 4-19 [facility] Comment on above: Performed By: #### L 100.0100, L500.2500 ####[facility] [address] [place], [address] CBC W/Diff, Automatedon 05-2 Absolute Lymph 2.24 X10 3/uL Normal 0.83-4.51 [facility] Comment on above: Performed By: #### L 100.0100, L500.2500 ####[facility] [address] [place], [address] Absolute Neut 5.3 X10 3/uL Normal 2.0-7.7 [facility] Comment on above: Performed By: #### L 100.0100, L500.2500 ####[facility] [address] [place], [address] Basophils/100 WBC (Bld) 0.6 % Normal 0-1 [facility] Comment on above: Performed By: #### L 100.0100, L500.2500 ####[facility] [address] [place], [address] Eosinophils/100 WBC (Bld) 1.9 % Normal 0-5 [facility] Comment on above: Performed By: #### L 100.0100, L500.2500 ####[facility] [address] [place], [address] Erythrocyte distribution width (RBC) [Ratio] 16.3 % High 11.6-14.6 [facility] Comment on above: Performed By: #### L 100.0100, L500.2500 ####[facility] [address] [place], [address] Hematocrit (Bld) [Volume fraction] 30.2 % Low 37-47 [facility] Comment on above: Performed By: #### L 100.0100, L500.2500 ####[facility] [address] [place], [address] Hemoglobin (Bld) [Mass/Vol] 9.5 g/dL Low 12.0-15.0 [facility] Comment on above: Performed By: #### L 100.0100, L500.2500 ####[facility] [address] [place], [address] IG% 0.500 Normal 0.0-0.9 [facility] Comment on above: Result Comment: IG% - Immature Granulocytes (promyelocytes, myelocytes andmetamyelocytes) > 1% indicates that a LEFT SHIFT is Present. Performed By: #### L 100.0100, L500.2500 ####[facility] [address] [place], [address] Lymphocytes/100 WBC (Bld) 26.5 % Normal 19-41 [facility] Comment on above: Performed By: #### L 100.0100, L500.2500 ####[facility] [address] [place], [address] MCH (RBC) [Entitic mass] 24.7 pg Low 27.0-32.0 [facility] Comment on above: Performed By: #### L 100.0100, L500.2500 ####[facility] [address] [place], [address] MCHC (RBC) [Mass/Vol] 31.5 g/dL Low 32-36 [facility] Comment on above: Performed By: #### L 100.0100, L500.2500 ####[facility] [address] [place], [address] MCV (RBC) [Entitic vol] 78.6 fL Low 81-99 [facility] Comment on above: Performed By: #### L 100.0100, L500.2500 ####[facility] [address] [place], [address] Monocytes/100 WBC (Bld) 8.5 % Normal 0-10 [facility] Comment on above: Performed By: #### L 100.0100, L500.2500 ####[facility] [address] [place], [address] Neutrophils/100 WBC (Bld) 62.0 % Normal 47-70 [facility] Comment on above: Performed By: #### L 100.0100, L500.2500 ####[facility] [address] [place], [address] Nucleated RBC (Bld) [#/Vol] 0 10*3/uL Normal 0-5 [facility] Comment on above: Performed By: #### L 100.0100, L500.2500 ####[facility] [address] [place], [address] Platelet mean volume (Bld) [Entitic vol] 8.8 fL Normal 6.2-12.0 [facility] Comment on above: Performed By: #### L 100.0100, L500.2500 ####[facility] [address] [place], [address] Platelets (Bld) [#/Vol] 423 10*3/uL Normal 150-450 [facility] Comment on above: Performed By: #### L 100.0100, L500.2500 ####[facility] [address] [place], [address] RBC (Bld) [#/Vol] 3.84 10*6/uL Low 4.2-5.[address] [facility] Comment on above: Performed By: #### L 100.0100, L500.2500 ####[facility] [address] [place], [address] RDW SD 46.2 fl High 35.1-43.9 [facility] Comment on above: Performed By: #### L 100.0100, L500.2500 ####[facility] [address] [place], [address] WBC (Bld) [#/Vol] 8.5 10*3/uL Normal 4.4-11.0 [facility] Comment on above: Performed By: #### L 100.0100, L500.2500 ####[facility] [address] [place], [address] H AND P Exam - Hospitaliston 11-21-2024 H&P Exam - Hospitalist Normal [facility] Urinalysis, Completeon 11-21 BACTERIA 2+ /hpf Normal None Seen [facility] Comment on above: Order Comment: LEO CTOR TO SPECIFY Performed By: #### M 100.678, L400.0001, M100.2200 ####[facility] [address] [place], [address] EPI,SQUAMOUS 0-5 SEEN Normal 5-10 [facility] Comment on above: Order Comment: LEO CTOR TO SPECIFY Performed By: #### M 100.678, L400.0001, M100.2200 ####[facility] [address] [place], [address] WBC 10-25 SEEN Normal 0-5 [facility] Comment on above: Order Comment: LEO CTOR TO SPECIFY Performed By: #### M 100.678, L400.0001, M100.2200 ####[facility] [address] [place], [address] YEAST 1+ /hpf Normal None Seen [facility] Comment on above: Order Comment: LEO CTOR TO SPECIFY Performed By: #### M 100.678, L400.0001, M100.2200 ####[facility] [address] [place], [address] BILIRUBIN URINE Negative Normal Negative [facility] Comment on above: Order Comment: LEO CTOR TO SPECIFY Performed By: #### M 100.678, L400.0001, M100.2200 ####[facility] [address] [place], [address] Clarity (U) Clear Normal Clear [facility] Comment on above: Order Comment: COLLE CTOR TO SPECIFY Performed By: #### M 100.678, L400.0001, M100.2200 ####[facility] [address] [place], [address] Color (U) Yellow Normal Yellow [facility] Comment on above: Order Comment: LEO CTOR TO SPECIFY Performed By: #### M 100.678, L400.0001, M100.2200 ####[facility] [address] [place], [address] GLUCOSE, UR Normal Normal Normal [facility] Comment on above: Order Comment: [facility] CTOR TO SPECIFY Performed By: #### M 100.678, L400.0001, M100.2200 ####[facility] [address] [place], [address] KETONE UR Negative Normal Negative [facility] Comment on above: Order Comment: [facility] CTOR TO SPECIFY Performed By: #### M 100.678, L400.0001, M100.2200 ####[facility] [address] [place], [address] LEUK ESTERASE 25 /ul Abnormal Negative [facility] Comment on above: Order Comment: LEO CTOR TO SPECIFY Performed By: #### M 100.678, L400.0001, M100.2200 ####[facility] [address] [place], [address] Nitrite Ql (U) Negative Normal Negative [facility] Comment on above: Order Comment: LEO CTOR TO SPECIFY Performed By: #### M 100.678, L400.0001, M100.2200 ####[facility] [address] [place], [address] OCCULT BLOOD-UR Negative Normal Negative [facility] Comment on above: Order Comment: COLLE CTOR TO SPECIFY Performed By: #### M 100.678, L400.0001, M100.2200 ####[facility] [address] [place], [address] pH UR 5.0 Normal 5.0 - 8.0 [facility] Comment on above: Order Comment: LEO CTOR TO SPECIFY Performed By: #### M 100.678, L400.0001, M100.2200 ####[facility] [address] [place], [address] PROT DIPSTX 30 mg/dl Abnormal Negative [facility] Comment on above: Order Comment: LEO CTOR TO SPECIFY Performed By: #### M 100.678, L400.0001, M100.2200 ####[facility] [address] [place], [address] SP.GR. DIPSTX 1.015 Normal 1.002-1.030 [facility] Comment on above: Order Comment: LEO CTOR TO SPECIFY Performed By: #### M 100.678, L400.0001, M100.0 ####[facility] [address] [place], [address] UROBILI Normal Normal Normal [facility] Comment on above: Order Comment: LEO CTOR TO SPECIFY Performed By: #### M 100.678, L400.0001, M100.2200 ####[facility] [address] [place], [address] Mucus Ql (Urine sed) 0 SEEN Normal [facility] Comment on above: Order Comment: LEO CTOR TO SPECIFY Performed By: #### M 100.678, L400.0001, M100.2200 ####[facility] [address] [place], [address] RBC 0 SEEN Normal 0-5 [facility] Comment on above: Order Comment: LEO CTOR TO SPECIFY Performed By: #### M 100.678, L400.0001, M100.2200 ####[facility] [address] [place], [address] 12 Lead EKGon 11-20-2024 12 Lead EKG Normal [facility] CBC W/Diff, Automatedon 05-2 PLT EST MKD INC Normal ADEQ [facility] Comment on above: Performed By: #### L 500.4050, M200.1000, L300.3900, L300.4310, L100.0100, L503.6005 ####[facility] [address] [place], [address] PATH REV May foll Normal [facility] Comment on above: Performed By: #### L 500.4050, M200.1000, L300.3900, L300.4310, L100.0100, L503.6005 ####[facility] [address] [place], [address] CTA Chst, Abd, Pel W and/or WOon 11-20-2024 CTA Chst, Abd, Pel W and/or WO Normal [facility] Comprehensive Metabolic Prof ilon 11-20-2024 Albumin [Mass/Vol] 4.7 g/dL Normal 3.5-5.0 [facility] Comment on above: Performed By: #### L 500.4050, M200.1000, L300.3900, L300.4310, L100.0100, L503.6005 ####[facility] [address] [place], [address] Albumin/Globulin [Mass ratio] 0.9 {ratio} Normal 0.9-2.4 [facility] Comment on above: Performed By: #### L 500.4050, M200.1000, L300.3900, L300.4310, L100.0100, L503.6005 ####[facility] [address] [place], [address] ALK PHOS 337 U/L High 35-104 [facility] Comment on above: Performed By: #### L 500.4050, M200.1000, L300.3900, L300.4310, L100.0100, L503.6005 ####[facility] [address] [place], [address] ALT [Catalytic activity/Vol] 127 U/L High <=34 [facility] Comment on above: Performed By: #### L 500.4050, M200.1000, L300.3900, L300.4310, L100.0100, L503.6005 ####[facility] [address] [place], [address] AST [Catalytic activity/Vol] 106 U/L High <=31 [facility] Comment on above: Performed By: #### L 500.4050, M200.1000, L300.3900, L300.4310, L100.0100, L503.6005 ####[facility] [address] [place], [address] Bilirubin [Mass/Vol] 0.82 mg/dL Normal 0.00-1.30 [facility] Comment on above: Performed By: #### L 500.4050, M200.1000, L300.3900, L300.4310, L100.0100, L503.6005 ####[facility] [address] [place], [address] BUN/CRE 8.4 RATIO Low 10-20 [facility] Comment on above: Performed By: #### L 500.4050, M200.1000, L300.3900, L300.4310, L100.0100, L503.6005 ####[facility] [address] [place], [address] Calcium [Mass/Vol] 10.8 mg/dL Normal 7.6-11.0 [facility] Comment on above: Performed By: #### L 500.4050, M200.1000, L300.3900, L300.4310, L100.0100, L503.6005 ####[facility] [address] [place], [address] Chloride [Moles/Vol] 88 mmol/L Low 98-108 [facility] Comment on above: Performed By: #### L 500.4050, M200.1000, L300.3900, L300.4310, L100.0100, L503.6005 ####[facility] [address] [place], [address] CO2 [Moles/Vol] 15.2 mmol/L Low 21.0-32.0 [facility] Comment on above: Performed By: #### L 500.4050, M200.1000, L300.3900, L300.4310, L100.0100, L503.6005 ####[facility] [address] [place], [address] Creatinine [Mass/Vol] 4.32 mg/dL High 0.70-1.20 [facility] Comment on above: Performed By: #### L 500.4050, M200.1000, L300.3900, L300.4310, L100.0100, L503.6005 ####[facility] [address] [place], [address] ECRCL 19.01 ml/min Low 50-250 [facility] Comment on above: Performed By: #### L 500.4050, M200.1000, L300.3900, L300.4310, L100.0100, L503.6005 ####[facility] [address] [place], [address] GAP 25 High 5-15 [facility] Comment on above: Performed By: #### L 500.4050, M200.1000, L300.3900, L300.4310, L100.0100, L503.6005 ####[facility] [address] [place], [address] GFR/1.73 sq M.predicted among non-blacks MDRD (S/P/Bld) [Vol rate/Area] 13 mL/min/{1.73_m2} Low >60 [facility] Comment on above: Result Comment: mL/m in/1.73m2 CKD-EPI Creatinine Equation (2020) Performed By: #### L 500.4050, M200.1000, L300.3900, L300.4310, L100.0100, L503.6005 ####[facility] [address] [place], [address] Globulin (S) [Mass/Vol] 5.5 g/dL High 2.2-4.2 [facility] Comment on above: Performed By: #### L 500.4050, M200.1000, L300.3900, L300.4310, L100.0100, L503.6005 ####[facility] [address] [place], [address] Glucose [Mass/Vol] 249 mg/dL High 70-99 [facility] Comment on above: Performed By: #### L 500.4050, M200.1000, L300.3900, L300.4310, L100.0100, L503.6005 ####[facility] [address] [place], [address] Potassium [Moles/Vol] 4.4 mmol/L Normal 3.3-5.1 [facility] Comment on above: Performed By: #### L 500.4050, M200.1000, L300.3900, L300.4310, L100.0100, L503.6005 ####[facility] [address] [place], [address] Sodium [Moles/Vol] 129 mmol/L Low 133-145 [facility] Comment on above: Performed By: #### L 500.4050, M200.1000, L300.3900, L300.4310, L100.0100, L503.6005 ####[facility] [address] [place], [address] T PROT 10.1 g/dL High 5.9-8.4 [facility] Comment on above: Performed By: #### L 500.4050, M200.1000, L300.3900, L300.4310, L100.0100, L503.6005 ####[facility] [address] [place], [address] Urea nitrogen [Mass/Vol] 36 mg/dL High 4-19 [facility] Comment on above: Performed By: #### L 500.4050, M200.1000, L300.3900, L300.4310, L100.0100, L503.6005 ####[facility] [address] [place], [address] Emergency Department Summary on 11-20-2024 Emergency Department Summary Normal [facility] Foot min 3 Viewson 5 Foot min 3 Views Normal [facility] L499.0042on 11-20-2024 Trop T High Sen 32 ng/L High <=14 [facility] Comment on above: Performed By: #### L 499.0042 ####[facility] [address] [place], [address] L499.0043on 11-20-2024 Trop T High Sen 32 ng/L High <=14 [facility] Comment on above: Performed By: #### L 499.0043 ####[facility] [address] [place], [address] L501.4021on 11-20-2024 Trop T High Sen 38 ng/L High <=14 [facility] Comment on above: Performed By: #### L 501.4021 ####[facility] [address] [place], [address] Lactic Acidon 11-20-2024 Lactate [Moles/Vol] 1.7 mmol/L Normal 0.0-2.[address] [facility] Comment on above: Performed By: #### L 503.6005 ####[facility] [address] [place], [address] Lactate [Moles/Vol] 6.1 mmol/L Invalid Interpretation Code 0.0-2.0 [facility] Comment on above: Order Comment: Y Result Comment: Crit ical Result(s) Called at: 1557 by: CLAUDIA G[facility]IERREZ [facility]Results read back by same. Performed By: #### L 500.4050, M200.1000, L300.3900, L300.4310, L100.0100, L503.6005 ####[facility] [address] [place], [address] M100.678on 11-20-2024 M100.678 Pending SARS-CoV-2 (COVID 19) Negative INFLUENZA A Negative INFLUENZA B Negative RSV PCR Negative Normal [facility] Comment on above: Performed By: #### M 100.678, L400.0001, M100.2200 ####[facility] [address] [place], [address] Partial Thromboplast Timeon 11-20-2024 aPTT Coag (Bld) [Time] 30.1 s Normal 24.1-36.2 [facility] Comment on above: Performed By: #### L 500.4050, M200.1000, L300.3900, L300.4310, L100.0100, L503.6005 ####[facility] [address] [place], [address] Prothrombin Time w/INRon INR Coag (PPP) [Relative time] 1.1 {INR} Normal [facility] Comment on above: Performed By: #### L 500.4050, M200.1000, L300.3900, L300.4310, L100.0100, L503.6005 ####[facility] [address] [place], [address] PT Coag (PPP) [Time] 14.8 s Normal 11.7-14.9 [facility] Comment on above: Performed By: #### L 500.4050, M200.1000, L300.3900, L300.4310, L100.0100, L503.6005 ####[facility] [address] [place], [address] Culture, Anaerobic Any Sourc patricia 11-19-2024 CUAN UNK UNK COLLECTED IN OR No anaerobic bacteria isolated. [facility] Comment on above: Performed By: #### M 100.2000, M100.4001, M100.3000 ####[facility] [address] [place], [address] Culture, Blood (WB)on 2024 CUB Blood cultures x2, f rom two different sites No growth in 5 days. [facility] Comment on above: Performed By: #### M 200.1000 ####[facility] [address] [place], [address] CUB Blood cultures x2, f rom two different sites No growth in 5 days. [facility] Comment on above: Performed By: #### L 100.0100, M200.1000, L501.4021, L503.7505, L500.4050, L300.4310, L300.3900, L503.6005 ####[facility] [address] [place], [address] Wound Cultureon 11-18-2024 WC [facility] Comment on above: Performed By: #### M 100.2000, M100.4001, M100.3000 ####[facility] [address] [place], [address] Discharge Instructionon 10-26 Discharge Instruction [facility] Basic Metabolic Profile (BMP )on 11-15-2024 BUN/CRE 13.5 RATIO Normal 10-20 [facility] Comment on above: Performed By: #### L 100.0100, L300.4310, L300.3900, L500.2500 ####[facility] [address] [place], [address] Calcium [Mass/Vol] 8.3 mg/dL Normal 7.6-11.0 [facility] Comment on above: Performed By: #### L 100.0100, L300.4310, L300.3900, L500.2500 ####[facility] [address] [place], [address] Chloride [Moles/Vol] 105 mmol/L Normal 98-108 [facility] Comment on above: Performed By: #### L 100.0100, L300.4310, L300.3900, L500.2500 ####[facility] [address] [place], [address] CO2 [Moles/Vol] 19.0 mmol/L Low 21.0-32.0 [facility] Comment on above: Performed By: #### L 100.0100, L300.4310, L300.3900, L500.2500 ####[facility] [address] [place], [address] Creatinine [Mass/Vol] 1.38 mg/dL High 0.70-1.20 [facility] Comment on above: Performed By: #### L 100.0100, L300.4310, L300.3900, L500.2500 ####[facility] [address] [place], [address] ECRCL 60.44 ml/min Normal 50-250 [facility] Comment on above: Performed By: #### L 100.0100, L300.4310, L300.3900, L500.2500 ####[facility] [address] [place], [address] GAP 11 Normal 5-15 [facility] Comment on above: Performed By: #### L 100.0100, L300.4310, L300.3900, L500.2500 ####[facility] [address] [place], [address] GFR/1.73 sq M.predicted among non-blacks MDRD (S/P/Bld) [Vol rate/Area] 49 mL/min/{1.73_m2} Low >60 [facility] Comment on above: Result Comment: mL/m in/1.73m2 CKD-EPI Creatinine Equation (2020) Performed By: #### L 100.0100, L300.4310, L300.3900, L500.2500 ####[facility] [address] [place], [address] Glucose [Mass/Vol] 90 mg/dL Normal 70-99 [facility] Comment on above: Performed By: #### L 100.0100, L300.4310, L300.3900, L500.2500 ####[facility] [address] [place], [address] Potassium [Moles/Vol] 3.2 mmol/L Low 3.3-5.1 [facility] Comment on above: Performed By: #### L 100.0100, L300.4310, L300.3900, L500.2500 ####[facility] [address] [place], [address] Sodium [Moles/Vol] 135 mmol/L Normal 133-145 [facility] Comment on above: Performed By: #### L 100.0100, L300.4310, L300.3900, L500.2500 ####[facility] [address] [place], [address] Urea nitrogen [Mass/Vol] 19 mg/dL Normal 4-19 [facility] Comment on above: Performed By: #### L 100.0100, L300.4310, L300.3900, L500.2500 ####[facility] [address] [place], [address] CBC W/Diff, Automatedon 05-2 Absolute Lymph 2.01 X10 3/uL Normal 0.83-4.51 [facility] Comment on above: Performed By: #### L 100.0100, L300.4310, L300.3900, L500.2500 ####[facility] [address] [place], [address] Absolute Neut 3.1 X10 3/uL Normal 2.0-7.7 [facility] Comment on above: Performed By: #### L 100.0100, L300.4310, L300.3900, L500.2500 ####[facility] [address] [place], [address] Basophils/100 WBC (Bld) 1.0 % Normal 0-1 [facility] Comment on above: Performed By: #### L 100.0100, L300.4310, L300.3900, L500.2500 ####[facility] [address] [place], [address] Eosinophils/100 WBC (Bld) 1.9 % Normal 0-5 [facility] Comment on above: Performed By: #### L 100.0100, L300.4310, L300.3900, L500.2500 ####[facility] [address] [place], [address] Erythrocyte distribution width (RBC) [Ratio] 16.0 % High 11.6-14.6 [facility] Comment on above: Performed By: #### L 100.0100, L300.4310, L300.3900, L500.2500 ####[facility] [address] [place], [address] Hematocrit (Bld) [Volume fraction] 26.8 % Low 37-47 [facility] Comment on above: Performed By: #### L 100.0100, L300.4310, L300.3900, L500.2500 ####[facility] [address] [place], [address] Hemoglobin (Bld) [Mass/Vol] 8.6 g/dL Low 12.0-15.0 [facility] Comment on above: Performed By: #### L 100.0100, L300.4310, L300.3900, L500.2500 ####[facility] [address] [place], [address] IG% 0.300 Normal 0.0-0.9 [facility] Comment on above: Result Comment: IG% - Immature Granulocytes (promyelocytes, myelocytes andmetamyelocytes) > 1% indicates that a LEFT SHIFT is Present. Performed By: #### L 100.0100, L300.4310, L300.3900, L500.2500 ####[facility] [address] [place], [address] Lymphocytes/100 WBC (Bld) 34.9 % Normal 19-41 [facility] Comment on above: Performed By: #### L 100.0100, L300.4310, L300.3900, L500.2500 ####[facility] [address] [place], [address] MCH (RBC) [Entitic mass] 25.2 pg Low 27.0-32.0 [facility] Comment on above: Performed By: #### L 100.0100, L300.4310, L300.3900, L500.2500 ####[facility] [address] [place], [address] MCHC (RBC) [Mass/Vol] 32.1 g/dL Normal 32-36 [facility] Comment on above: Performed By: #### L 100.0100, L300.4310, L300.3900, L500.2500 ####[facility] [address] [place], [address] MCV (RBC) [Entitic vol] 78.6 fL Low 81-99 [facility] Comment on above: Performed By: #### L 100.0100, L300.4310, L300.3900, L500.2500 ####[facility] [address] [place], [address] Monocytes/100 WBC (Bld) 8.0 % Normal 0-10 [facility] Comment on above: Performed By: #### L 100.0100, L300.4310, L300.3900, L500.2500 ####[facility] [address] [place], [address] Neutrophils/100 WBC (Bld) 53.9 % Normal 47-70 [facility] Comment on above: Performed By: #### L 100.0100, L300.4310, L300.3900, L500.2500 ####[facility] [address] [place], [address] Nucleated RBC (Bld) [#/Vol] 0 10*3/uL Normal 0-5 [facility] Comment on above: Performed By: #### L 100.0100, L300.4310, L300.3900, L500.2500 ####[facility] [address] [place], [address] Platelet mean volume (Bld) [Entitic vol] 9.1 fL Normal 6.2-12.0 [facility] Comment on above: Performed By: #### L 100.0100, L300.4310, L300.3900, L500.2500 ####[facility] [address] [place], [address] Platelets (Bld) [#/Vol] 394 10*3/uL Normal 150-450 [facility] Comment on above: Performed By: #### L 100.0100, L300.4310, L300.3900, L500.2500 ####[facility] [address] [place], [address] RBC (Bld) [#/Vol] 3.41 10*6/uL Low 4.2-5.[address] [facility] Comment on above: Performed By: #### L 100.0100, L300.4310, L300.3900, L500.2500 ####[facility] [address] [place], [address] RDW SD 45.2 fl High 35.1-43.9 [facility] Comment on above: Performed By: #### L 100.0100, L300.4310, L300.3900, L500.2500 ####[facility] [address] [place], [address] WBC (Bld) [#/Vol] 5.8 10*3/uL Normal 4.4-11.0 [facility] Comment on above: Performed By: #### L 100.0100, L300.4310, L300.3900, L500.2500 ####[facility] [address] [place], [address] Decalcification bone/plaqueo n 11-15-2024 Decalcification bone/plaque Normal [facility] Comment on above: Performed By: #### P DEC ####[facility] [address] [place], [address] Gram Stainon 11-15-2024 GS UNK UNK COLLECTED IN OR Gram Stain Rare Gram positive cocci Rare Gram positive rods Normal [facility] Comment on above: Performed By: #### M 100.2000, M100.4001, M100.3000 ####[facility] [address] [place], [address] MR/POSTOP.ANEon 11-15-2024 MR/POSTOP.ANE Normal [facility] MR/[id number] 11-15-2024 MR/POSTOPAN2 Normal [facility] Operative Reporton Operative Report Normal [facility] Partial Thromboplast Timeon 11-15-2024 aPTT Coag (Bld) [Time] 59.2 s High 24.1-36.2 [facility] Comment on above: Performed By: #### L 100.0100, L300.4310, L300.3900, L500.2500 ####[facility] [address] [place], [address] aPTT Coag (Bld) [Time] 82.6 s High 24.1-36.2 [facility] Comment on above: Performed By: #### L 300.4310 ####[facility] [address] [place], [address] ,Urineon 11-15-2024 Beta HCG ( test) Ql (U) Negative Normal [facility] Comment on above: Result Comment: Very dilute urine specimens, as indicated by a low specificgravity, may not contain contact representative levels of hCG.If is still suspected, a first morning urinespecimen should be collected 48 hours later and tested. Performed By: #### L 400.7600 ####[facility] [address] [place], [address] Prothrombin Time w/INRon INR Coag (PPP) [Relative time] 1.1 {INR} Normal [facility] Comment on above: Performed By: #### L 100.0100, L300.4310, L300.3900, L500.2500 ####[facility] [address] [place], [address] PT Coag (PPP) [Time] 14.0 s Normal 11.7-14.9 [facility] Comment on above: Performed By: #### L 100.0100, L300.4310, L300.3900, L500.2500 ####[facility] [address] [place], [address] CBC W/Diff, Automatedon 05-2 Absolute Lymph 1.95 X10 3/uL Normal 0.83-4.51 [facility] Comment on above: Performed By: #### L 500.4050, L100.0100 ####[facility] [address] [place], [address] Absolute Neut 3.7 X10 3/uL Normal 2.0-7.7 [facility] Comment on above: Performed By: #### L 500.4050, L100.0100 ####[facility] [address] [place], [address] Basophils/100 WBC (Bld) 0.8 % Normal 0-1 [facility] Comment on above: Performed By: #### L 500.4050, L100.0100 ####[facility] [address] [place], [address] Eosinophils/100 WBC (Bld) 2.1 % Normal 0-5 [facility] Comment on above: Performed By: #### L 500.4050, L100.0100 ####[facility] [address] [place], [address] Erythrocyte distribution width (RBC) [Ratio] 15.8 % High 11.6-14.6 [facility] Comment on above: Performed By: #### L 500.4050, L100.0100 ####[facility] [address] [place], [address] Hematocrit (Bld) [Volume fraction] 28.9 % Low 37-47 [facility] Comment on above: Performed By: #### L 500.4050, L100.0100 ####[facility] [address] [place], [address] Hemoglobin (Bld) [Mass/Vol] 9.3 g/dL Low 12.0-15.0 [facility] Comment on above: Performed By: #### L 500.4050, L100.0100 ####[facility] [address] [place], [address] IG% 0.300 Normal 0.0-0.9 [facility] Comment on above: Result Comment: IG% - Immature Granulocytes (promyelocytes, myelocytes andmetamyelocytes) > 1% indicates that a LEFT SHIFT is Present. Performed By: #### L 500.4050, L100.0100 ####[facility] [address] [place], [address] Lymphocytes/100 WBC (Bld) 30.8 % Normal 19-41 [facility] Comment on above: Performed By: #### L 500.4050, L100.0100 ####[facility] [address] [place], [address] MCH (RBC) [Entitic mass] 24.7 pg Low 27.0-32.0 [facility] Comment on above: Performed By: #### L 500.4050, L100.0100 ####[facility] [address] [place], [address] MCHC (RBC) [Mass/Vol] 32.2 g/dL Normal 32-36 [facility] Comment on above: Performed By: #### L 500.4050, L100.0100 ####[facility] [address] [place], [address] MCV (RBC) [Entitic vol] 76.9 fL Low 81-99 [facility] Comment on above: Performed By: #### L 500.4050, L100.0100 ####[facility] [address] [place], [address] Monocytes/100 WBC (Bld) 7.4 % Normal 0-10 [facility] Comment on above: Performed By: #### L 500.4050, L100.0100 ####[facility] [address] [place], [address] Neutrophils/100 WBC (Bld) 58.6 % Normal 47-70 [facility] Comment on above: Performed By: #### L 500.4050, L100.0100 ####[facility] [address] [place], [address] Nucleated RBC (Bld) [#/Vol] 0 10*3/uL Normal 0-5 [facility] Comment on above: Performed By: #### L 500.4050, L100.0100 ####[facility] [address] [place], [address] Platelet mean volume (Bld) [Entitic vol] 8.9 fL Normal 6.2-12.0 [facility] Comment on above: Performed By: #### L 500.4050, L100.0100 ####[facility] [address] [place], [address] Platelets (Bld) [#/Vol] 393 10*3/uL Normal 150-450 [facility] Comment on above: Performed By: #### L 500.4050, L100.0100 ####[facility] [address] [place], [address] RBC (Bld) [#/Vol] 3.76 10*6/uL Low 4.2-5.[address] [facility] Comment on above: Performed By: #### L 500.4050, L100.0100 ####[facility] [address] [place], [address] RDW SD 43.0 fl Normal 35.1-43.9 [facility] Comment on above: Performed By: #### L 500.4050, L100.0100 ####[facility] [address] [place], [address] WBC (Bld) [#/Vol] 6.3 10*3/uL Normal 4.4-11.0 [facility] Comment on above: Performed By: #### L 500.4050, L100.0100 ####[facility] [address] [place], [address] Comprehensive Metabolic Prof [facility] 11-14-2024 Albumin [Mass/Vol] 3.4 g/dL Low 3.5-5.0 [facility] Comment on above: Performed By: #### L 500.4050, L100.0100 ####[facility] [address] [place], [address] Albumin/Globulin [Mass ratio] 1.0 {ratio} Normal 0.9-2.4 [facility] Comment on above: Performed By: #### L 500.4050, L100.0100 ####[facility] [address] [place], [address] ALK PHOS 273 U/L High 35-104 [facility] Comment on above: Performed By: #### L 500.4050, L100.0100 ####[facility] [address] [place], [address] ALT [Catalytic activity/Vol] 205 U/L High <=34 [facility] Comment on above: Performed By: #### L 500.4050, L100.0100 ####[facility] [address] [place], [address] AST [Catalytic activity/Vol] 102 U/L High <=31 [facility] Comment on above: Performed By: #### L 500.4050, L100.0100 ####[facility] [address] [place], [address] Bilirubin [Mass/Vol] 1.20 mg/dL Normal 0.00-1.30 [facility] Comment on above: Performed By: #### L 500.4050, L100.0100 ####[facility] [address] [place], [address] BUN/CRE 18.6 RATIO Normal 10-20 [facility] Comment on above: Performed By: #### L 500.4050, L100.0100 ####[facility] [address] [place], [address] Calcium [Mass/Vol] 8.8 mg/dL Normal 7.6-11.0 [facility] Comment on above: Performed By: #### L 500.4050, L100.0100 ####[facility] [address] [place], [address] Chloride [Moles/Vol] 100 mmol/L Normal 98-108 [facility] Comment on above: Performed By: #### L 500.4050, L100.0100 ####[facility] [address] [place], [address] CO2 [Moles/Vol] 17.5 mmol/L Low 21.0-32.0 [facility] Comment on above: Performed By: #### L 500.4050, L100.0100 ####[facility] [address] [place], [address] Creatinine [Mass/Vol] 2.17 mg/dL High 0.70-1.20 [facility] Comment on above: Performed By: #### L 500.4050, L100.0100 ####[facility] [address] [place], [address] ECRCL 38.54 ml/min Low 50-250 [facility] Comment on above: Performed By: #### L 500.4050, L100.0100 ####[facility] [address] [place], [address] GAP 14 Normal 5-15 [facility] Comment on above: Performed By: #### L 500.4050, L100.0100 ####[facility] [address] [place], [address] GFR/1.73 sq M.predicted among non-blacks MDRD (S/P/Bld) [Vol rate/Area] 29 mL/min/{1.73_m2} Low >60 [facility] Comment on above: Result Comment: mL/m in/1.73m2 CKD-EPI Creatinine Equation (2020) Performed By: #### L 500.4050, L100.0100 ####[facility] [address] [place], [address] Globulin (S) [Mass/Vol] 3.6 g/dL Normal 2.2-4.2 [facility] Comment on above: Performed By: #### L 500.4050, L100.0100 ####[facility] [address] [place], [address] Glucose [Mass/Vol] 146 mg/dL High 70-99 [facility] Comment on above: Performed By: #### L 500.4050, L100.0100 ####[facility] [address] [place], [address] Potassium [Moles/Vol] 3.4 mmol/L Normal 3.3-5.1 [facility] Comment on above: Performed By: #### L 500.4050, L100.0100 ####[facility] [address] [place], [address] Sodium [Moles/Vol] 131 mmol/L Low 133-145 [facility] Comment on above: Performed By: #### L 500.4050, L100.0100 ####[facility] [address] [place], [address] T PROT 7.0 g/dL Normal 5.9-8.4 [facility] Comment on above: Performed By: #### L 500.4050, L100.0100 ####[facility] [address] [place], [address] Urea nitrogen [Mass/Vol] 40 mg/dL High 4-19 [facility] Comment on above: Performed By: #### L 500.4050, L100.0100 ####[facility] [address] [place], [address] Consultation - Surgicalon Consultation - Surgical Normal [facility] Lower Ext Art Exam w/o Exerc marly 11-14-2024 Lower Ext Art Exam w/o Exercis Normal [facility] Partial Thromboplast Timeon 11-14-2024 aPTT Coag (Bld) [Time] 30.6 s Normal 24.1-36.2 [facility] Comment on above: Performed By: #### L 300.4310 ####[facility] [address] [place], [address] aPTT Coag (Bld) [Time] 55.3 s High 24.1-36.2 [facility] Comment on above: Performed By: #### L 300.4310 ####[facility] [address] [place], [address] aPTT Coag (Bld) [Time] 56.1 s High 24.1-36.2 [facility] Comment on above: Performed By: #### L 300.4310 ####[facility] [address] [place], [address] Urine Cultureon 11-14-2024 URC Culture exhibits no growth. Normal [facility] Comment on above: Performed By: #### M 100.678, M100.2200, L400.0001 ####[facility] [address] [place], [address] 12 Lead EKGon 11-13-2024 12 Lead EKG Normal [facility] CRPon 11-13-2024 C-REACTIVE PROT 10.90 mg/L High 0.0-3.0 [facility] Comment on above: Performed By: #### L 501.6710, L101.9900 ####[facility] [address] [place], [address] Chest PA and Lateralon 11-13 Chest PA and Lateral Normal [facility] Comprehensive Metabolic Prof ilon 11-13-2024 Albumin [Mass/Vol] 4.8 g/dL Normal 3.5-5.0 [facility] Comment on above: Performed By: #### L 100.0100, M200.1000, L501.4021, L503.7505, L500.4050, L300.4310, L300.3900, L503.6005 ####[facility] [address] [place], [address] Albumin/Globulin [Mass ratio] 0.9 {ratio} Normal 0.9-2.4 [facility] Comment on above: Performed By: #### L 100.0100, M200.1000, L501.4021, L503.7505, L500.4050, L300.4310, L300.3900, L503.6005 ####[facility] [address] [place], [address] ALK PHOS 459 U/L High 35-104 [facility] Comment on above: Performed By: #### L 100.0100, M200.1000, L501.4021, L503.7505, L500.4050, L300.4310, L300.3900, L503.6005 ####[facility] [address] [place], [address] ALT [Catalytic activity/Vol] 336 U/L High <=34 [facility] Comment on above: Performed By: #### L 100.0100, M200.1000, L501.4021, L503.7505, L500.4050, L300.4310, L300.3900, L503.6005 ####[facility] [address] [place], [address] AST [Catalytic activity/Vol] 197 U/L High <=31 [facility] Comment on above: Performed By: #### L 100.0100, M200.1000, L501.4021, L503.7505, L500.4050, L300.4310, L300.3900, L503.6005 ####[facility] [address] [place], [address] Bilirubin [Mass/Vol] 1.93 mg/dL High 0.00-1.30 [facility] Comment on above: Performed By: #### L 100.0100, M200.1000, L501.4021, L503.7505, L500.4050, L300.4310, L300.3900, L503.6005 ####[facility] [address] [place], [address] BUN/CRE 17.9 RATIO Normal 10-20 [facility] Comment on above: Performed By: #### L 100.0100, M200.1000, L501.4021, L503.7505, L500.4050, L300.4310, L300.3900, L503.6005 ####[facility] [address] [place], [address] Calcium [Mass/Vol] 11.0 mg/dL Normal 7.6-11.0 [facility] Comment on above: Performed By: #### L 100.0100, M200.1000, L501.4021, L503.7505, L500.4050, L300.4310, L300.3900, L503.6005 ####[facility] [address] [place], [address] Chloride [Moles/Vol] 86 mmol/L Low 98-108 [facility] Comment on above: Performed By: #### L 100.0100, M200.1000, L501.4021, L503.7505, L500.4050, L300.4310, L300.3900, L503.6005 ####[facility] [address] [place], [address] CO2 [Moles/Vol] 17.0 mmol/L Low 21.0-32.0 [facility] Comment on above: Performed By: #### L 100.0100, M200.1000, L501.4021, L503.7505, L500.4050, L300.4310, L300.3900, L503.6005 ####[facility] [address] [place], [address] Creatinine [Mass/Vol] 3.70 mg/dL High 0.70-1.20 [facility] Comment on above: Performed By: #### L 100.0100, M200.1000, L501.4021, L503.7505, L500.4050, L300.4310, L300.3900, L503.6005 ####[facility] [address] [place], [address] ECRCL 22.19 ml/min Low 50-250 [facility] Comment on above: Performed By: #### L 100.0100, M200.1000, L501.4021, L503.7505, L500.4050, L300.4310, L300.3900, L503.6005 ####[facility] [address] [place], [address] GAP 23 High 5-15 [facility] Comment on above: Performed By: #### L 100.0100, M200.1000, L501.4021, L503.7505, L500.4050, L300.4310, L300.3900, L503.6005 ####[facility] [facility] [address] [place], [address] GFR/1.73 sq M.predicted among non-blacks MDRD (S/P/Bld) [Vol rate/Area] 15 mL/min/{1.73_m2} Low >60 [facility] Comment on above: Result Comment: mL/m in/1.73m2 CKD-EPI Creatinine Equation (2020) Performed By: #### L 100.0100, M200.1000, L501.4021, L503.7505, L500.4050, L300.4310, L300.3900, L503.6005 ####[facility] [address] [place], [address] Globulin (S) [Mass/Vol] 5.5 g/dL High 2.2-4.2 [facility] Comment on above: Performed By: #### L 100.0100, M200.1000, L501.4021, L503.7505, L500.4050, L300.4310, L300.3900, L503.6005 ####[facility] [address] [place], [address] Glucose [Mass/Vol] 168 mg/dL High 70-99 [facility] Comment on above: Performed By: #### L 100.0100, M200.1000, L501.4021, L503.7505, L500.4050, L300.4310, L300.3900, L503.6005 ####[facility] [address] [place], [address] Potassium [Moles/Vol] 4.1 mmol/L Normal 3.3-5.1 [facility] Comment on above: Performed By: #### L 100.0100, M200.1000, L501.4021, L503.7505, L500.4050, L300.4310, L300.3900, L503.6005 ####[facility] [address] [place], [address] Sodium [Moles/Vol] 126 mmol/L Low 133-145 [facility] Comment on above: Performed By: #### L 100.0100, M200.1000, L501.4021, L503.7505, L500.4050, L300.4310, L300.3900, L503.6005 ####[facility] [address] [place], [address] T PROT 10.3 g/dL High 5.9-8.4 [facility] Comment on above: Performed By: #### L 100.0100, M200.1000, L501.4021, L503.7505, L500.4050, L300.4310, L300.3900, L503.6005 ####[facility] [address] [place], [address] Urea nitrogen [Mass/Vol] 66 mg/dL High 4-19 [facility] Comment on above: Performed By: #### L 100.0100, M200.1000, L501.4021, L503.7505, L500.4050, L300.4310, L300.3900, L503.6005 ####[facility] [address] [place], [address] Emergency Department Summary on 11-13-2024 Emergency Department Summary Normal [facility] Erythrocyte Sed Rateon 11-13 SED RATE 87 mm/hr High 0-30 [facility] Comment on above: Performed By: #### L 501.6710, L101.9900 ####[facility] [address] [place], [address] Foot min 3 Viewson 5 Foot min 3 Views Normal [facility] H AND P Exam - Hospitaliston 11-13-2024 H&P Exam - Hospitalist Normal [facility] L501.4021on 11-13-2024 Trop T High Sen 20 ng/L High <=14 [facility] Comment on above: Performed By: #### L 501.4021 ####[facility] [address] [place], [address] Trop T High Sen 30 ng/L High <=14 [facility] Comment on above: Performed By: #### L 100.0100, M200.1000, L501.4021, L503.7505, L500.4050, L300.4310, L300.3900, L503.6005 ####[facility] [address] [place], [address] L503.7505on 11-13-2024 Natriuretic peptide B (Bld) [Mass/Vol] 46 pg/mL Normal <=450 [facility] Comment on above: Result Comment: Hear t Failure Unlikely: < 300 pg/mLHeart Failure Likely< 50 Years: > 450 pg/mL50-75 Years: > 900 pg/mL>75 Years: > 1800 pg/mL Performed By: #### L 100.0100, M200.1000, L501.4021, L503.7505, L500.4050, L300.4310, L300.3900, L503.6005 ####[facility] [address] [place], [address] Lactic Acidon 11-13-2024 Lactate [Moles/Vol] 1.6 mmol/L Normal 0.0-2.[address] [facility] Comment on above: Performed By: #### L 503.6005 ####[facility] [address] [place], [address] Lactate [Moles/Vol] 5.8 mmol/L Invalid Interpretation Code 0.0-2.0 [facility] Comment on above: Order Comment: Y Result Comment: Crit ical Result(s) Called at 1343: by: ROSSANA CARLSON. ??Results read back by same. Performed By: #### L 100.0100, M200.1000, L501.4021, L503.7505, L500.4050, L300.4310, L300.3900, L503.6005 ####[facility] [address] [place], [address] M100.678on 11-13-2024 M100.678 Pending SARS-CoV-2 (COVID 19) Negative INFLUENZA A Negative INFLUENZA B Negative RSV PCR Negative Normal [facility] Comment on above: Performed By: #### M 100.678, M100.2200, L400.0001 ####[facility] [address] [place], [address] Partial Thromboplast Timeon 11-13-2024 aPTT Coag (Bld) [Time] 73.1 s High 24.1-36.2 [facility] Comment on above: Performed By: #### L 300.4310 ####[facility] [address] [place], [address] aPTT Coag (Bld) [Time] 29.6 s Normal 24.1-36.2 [facility] Comment on above: Performed By: #### L 100.0100, M200.1000, L501.4021, L503.7505, L500.4050, L300.4310, L300.3900, L503.6005 ####[facility] [address] [place], [address] Prothrombin Time w/INRon INR Coag (PPP) [Relative time] 1.1 {INR} Normal [facility] Comment on above: Performed By: #### L 100.0100, M200.1000, L501.4021, L503.7505, L500.4050, L300.4310, L300.3900, L503.6005 ####[facility] [address] [place], [address] PT Coag (PPP) [Time] 13.9 s Normal 11.7-14.9 [facility] Comment on above: Performed By: #### L 100.0100, M200.1000, L501.4021, L503.7505, L500.4050, L300.4310, L300.3900, L503.6005 ####[facility] [address] [place], [address] Urinalysis, Completeon 11-13 CAST,HYALINE 10-25 SEEN Normal 0-5 [facility] Comment on above: Order Comment: LEO CTOR TO SPECIFY Performed By: #### M 100.678, M100.2200, L400.0001 ####[facility] [address] [place], [address] EPI,SQUAMOUS 0-5 SEEN Normal 5-10 [facility] Comment on above: Order Comment: COLLE CTOR TO SPECIFY Performed By: #### M 100.678, M100.2200, L400.0001 ####[facility] [address] [place], [address] WBC 0-5 SEEN Normal 0-5 [facility] Comment on above: Order Comment: LEO CTOR TO SPECIFY Performed By: #### M 100.678, M100.2200, L400.0001 ####[facility] [address] [place], [address] BACTERIA 0 SEEN Normal None Seen [facility] Comment on above: Order Comment: LEO CTOR TO SPECIFY Performed By: #### M 100.678, M100.2200, L400.0001 ####[facility] [address] [place], [address] Mucus Ql (Urine sed) 0 SEEN Normal [facility] Comment on above: Order Comment: COLLE CTOR TO SPECIFY Performed By: #### M 100.678, M100.2200, L400.0001 ####[facility] [address] [place], [address] RBC 0 SEEN Normal 0-5 [facility] Comment on above: Order Comment: COLLE CTOR TO SPECIFY Performed By: #### M 100.678, M100.2200, L400.0001 ####[facility] [address] [place], [address] Basic Metabolic Profile (BMP )on 11-05-2024 BUN/CRE 4.7 RATIO Low 10-20 [facility] Comment on above: Performed By: #### L 500.2500 ####[facility] [address] [place], [address] Calcium [Mass/Vol] 8.6 mg/dL Normal 7.6-11.0 [facility] Comment on above: Performed By: #### L 500.2500 ####[facility] [address] [place], [address] Chloride [Moles/Vol] 110 mmol/L High 98-108 [facility] Comment on above: Performed By: #### L 500.2500 ####[facility] [address] [place], [address] CO2 [Moles/Vol] 19.7 mmol/L Low 21.0-32.0 [facility] Comment on above: Performed By: #### L 500.2500 ####[facility] [address] [place], [address] Creatinine [Mass/Vol] 0.94 mg/dL Normal 0.70-1.20 [facility] Comment on above: Performed By: #### L 500.2500 ####[facility] [address] [place], [address] ECRCL 89.97 ml/min Normal 50-250 [facility] Comment on above: Performed By: #### L 500.2500 ####[facility] [address] [place], [address] GAP 10 Normal 5-15 [facility] Comment on above: Performed By: #### L 500.2500 ####[facility] [address] [place], [address] GFR/1.73 sq M.predicted among non-blacks MDRD (S/P/Bld) [Vol rate/Area] 78 mL/min/{1.73_m2} Normal >60 [facility] Comment on above: Result Comment: mL/m in/1.73m2 CKD-EPI Creatinine Equation (2020) Performed By: #### L 500.2500 ####[facility] [address] [place], [address] Glucose [Mass/Vol] 85 mg/dL Normal 70-99 [facility] Comment on above: Performed By: #### L 500.2500 ####[facility] [address] [place], [address] Potassium [Moles/Vol] 3.7 mmol/L Normal 3.3-5.1 [facility] Comment on above: Performed By: #### L 500.2500 ####[facility] [address] [place], [address] Sodium [Moles/Vol] 139 mmol/L Normal 133-145 [facility] Comment on above: Performed By: #### L 500.2500 ####[facility] [address] [place], [address] Urea nitrogen [Mass/Vol] 4 mg/dL Normal 4-19 [facility] Comment on above: Performed By: #### L 500.2500 ####[facility] [address] [place], [address] Basic Metabolic Profile (BMP )on 11-04-2024 BUN/CRE 3.6 RATIO Low 10-20 [facility] Comment on above: Performed By: #### L 500.2500 ####[facility] [address] [place], [address] Calcium [Mass/Vol] 7.8 mg/dL Normal 7.6-11.0 [facility] Comment on above: Performed By: #### L 500.2500 ####[facility] [address] [place], [address] Chloride [Moles/Vol] 113 mmol/L High 98-108 [facility] Comment on above: Performed By: #### L 500.2500 ####[facility] [address] [place], [address] CO2 [Moles/Vol] 17.3 mmol/L Low 21.0-32.0 [facility] Comment on above: Performed By: #### L 500.2500 ####[facility] [address] [place], [address] Creatinine [Mass/Vol] 0.93 mg/dL Normal 0.70-1.20 [facility] Comment on above: Performed By: #### L 500.2500 ####[facility] [address] [place], [address] ECRCL 90.94 ml/min Normal 50-250 [facility] Comment on above: Performed By: #### L 500.2500 ####[facility] [address] [place], [address] GAP 9 Normal 5-15 [facility] Comment on above: Performed By: #### L 500.2500 ####[facility] [address] [place], [address] GFR/1.73 sq M.predicted among non-blacks MDRD (S/P/Bld) [Vol rate/Area] 79 mL/min/{1.73_m2} Normal >60 [facility] Comment on above: Result Comment: mL/m in/1.73m2 CKD-EPI Creatinine Equation (2020) Performed By: #### L 500.2500 ####[facility] [address] [place], [address] Glucose [Mass/Vol] 96 mg/dL Normal 70-99 [facility] Comment on above: Performed By: #### L 500.2500 ####[facility] [address] [place], [address] Potassium [Moles/Vol] 3.9 mmol/L Normal 3.3-5.1 [facility] Comment on above: Performed By: #### L 500.2500 ####[facility] [address] [place], [address] Sodium [Moles/Vol] 140 mmol/L Normal 133-145 [facility] Comment on above: Performed By: #### L 500.2500 ####[facility] [address] [place], [address] Urea nitrogen [Mass/Vol] 3 mg/dL Low 4-19 [facility] Comment on above: Performed By: #### L 500.2500 ####[facility] [address] [place], [address] Basic Metabolic Profile (BMP )on 11-03-2024 BUN/CRE 4.1 RATIO Low 10-20 [facility] Comment on above: Performed By: #### L 501.5200, L500.2500 ####[facility] [address] [place], [address] Calcium [Mass/Vol] 8.3 mg/dL Normal 7.6-11.0 [facility] Comment on above: Performed By: #### L 501.5200, L500.2500 ####[facility] [address] [place], [address] Chloride [Moles/Vol] 110 mmol/L High 98-108 [facility] Comment on above: Performed By: #### L 501.5200, L500.2500 ####[facility] [address] [place], [address] CO2 [Moles/Vol] 20.6 mmol/L Low 21.0-32.0 [facility] Comment on above: Performed By: #### L 501.5200, L500.2500 ####[facility] [address] [place], [address] Creatinine [Mass/Vol] 0.99 mg/dL Normal 0.70-1.20 [facility] Comment on above: Performed By: #### L 501.5200, L500.2500 ####[facility] [address] [place], [address] ECRCL 85.43 ml/min Normal 50-250 [facility] Comment on above: Performed By: #### L 501.5200, L500.2500 ####[facility] [address] [place], [address] GAP 9 Normal 5-15 [facility] Comment on above: Performed By: #### L 501.5200, L500.2500 ####[facility] [address] [place], [address] GFR/1.73 sq M.predicted among non-blacks MDRD (S/P/Bld) [Vol rate/Area] 74 mL/min/{1.73_m2} Normal >60 [facility] Comment on above: Result Comment: mL/m in/1.73m2 CKD-EPI Creatinine Equation (2020) Performed By: #### L 501.5200, L500.2500 ####[facility] [address] [place], [address] Glucose [Mass/Vol] 100 mg/dL High 70-99 [facility] Comment on above: Performed By: #### L 501.5200, L500.2500 ####[facility] [address] [place], [address] Potassium [Moles/Vol] 3.8 mmol/L Normal 3.3-5.1 [facility] Comment on above: Performed By: #### L 501.5200, L500.2500 ####[facility] [address] [place], [address] Sodium [Moles/Vol] 140 mmol/L Normal 133-145 [facility] Comment on above: Performed By: #### L 501.5200, L500.2500 ####[facility] [address] [place], [address] Urea nitrogen [Mass/Vol] 4 mg/dL Normal 4-19 [facility] Comment on above: Performed By: #### L 501.5200, L500.2500 ####[facility] [address] [place], [address] Magnesiumon 11-03-2024 Magnesium [Mass/Vol] 1.3 mg/dL Low 1.5-2.2 [facility] Comment on above: Performed By: #### L 501.5200, L500.2500 ####[facility] [address] [place], [address] Basic Metabolic Profile (BMP )on 11-02-2024 BUN/CRE 7.2 RATIO Low 10-20 [facility] Comment on above: Performed By: #### L 500.2500 ####[facility] [address] [place], [address] Calcium [Mass/Vol] 8.2 mg/dL Normal 7.6-11.0 [facility] Comment on above: Performed By: #### L 500.2500 ####[facility] [address] [place], [address] Chloride [Moles/Vol] 106 mmol/L Normal 98-108 [facility] Comment on above: Performed By: #### L 500.2500 ####[facility] [address] [place], [address] CO2 [Moles/Vol] 22.3 mmol/L Normal 21.0-32.0 [facility] Comment on above: Performed By: #### L 500.2500 ####[facility] [address] [place], [address] Creatinine [Mass/Vol] 0.96 mg/dL Normal 0.70-1.20 [facility] Comment on above: Performed By: #### L 500.2500 ####[facility] [address] [place], [address] ECRCL 88.09 ml/min Normal 50-250 [facility] Comment on above: Performed By: #### L 500.2500 ####[facility] [address] [place], [address] GAP 11 Normal 5-15 [facility] Comment on above: Performed By: #### L 500.2500 ####[facility] [address] [place], [address] GFR/1.73 sq M.predicted among non-blacks MDRD (S/P/Bld) [Vol rate/Area] 76 mL/min/{1.73_m2} Normal >60 [facility] Comment on above: Result Comment: mL/m in/1.73m2 CKD-EPI Creatinine Equation (2020) Performed By: #### L 500.2500 ####[facility] [address] [place], [address] Glucose [Mass/Vol] 79 mg/dL Normal 70-99 [facility] Comment on above: Performed By: #### L 500.2500 ####[facility] [address] [place], [address] Potassium [Moles/Vol] 3.0 mmol/L Low 3.3-5.1 [facility] Comment on above: Performed By: #### L 500.2500 ####[facility] [address] [place], [address] Sodium [Moles/Vol] 139 mmol/L Normal 133-145 [facility] Comment on above: Performed By: #### L 500.2500 ####[facility] [address] [place], [address] Urea nitrogen [Mass/Vol] 7 mg/dL Normal 4-19 [facility] Comment on above: Performed By: #### L 500.2500 ####[facility] [address] [place], [address] Basic Metabolic Profile (BMP )on 11-01-2024 BUN/CRE 8.6 RATIO Low 10-20 [facility] Comment on above: Performed By: #### L 500.2500 ####[facility] [address] [place], [address] Calcium [Mass/Vol] 8.5 mg/dL Normal 7.6-11.0 [facility] Comment on above: Performed By: #### L 500.2500 ####[facility] [address] [place], [address] Chloride [Moles/Vol] 102 mmol/L Normal 98-108 [facility] Comment on above: Performed By: #### L 500.2500 ####[facility] [address] [place], [address] CO2 [Moles/Vol] 24.0 mmol/L Normal 21.0-32.0 [facility] Comment on above: Performed By: #### L 500.2500 ####[facility] [address] [place], [address] Creatinine [Mass/Vol] 1.01 mg/dL Normal 0.70-1.20 [facility] Comment on above: Performed By: #### L 500.2500 ####[facility] [address] [place], [address] ECRCL 83.73 ml/min Normal 50-250 [facility] Comment on above: Performed By: #### L 500.2500 ####[facility] [address] [place], [address] GAP 10 Normal 5-15 [facility] Comment on above: Performed By: #### L 500.2500 ####[facility] [address] [place], [address] GFR/1.73 sq M.predicted among non-blacks MDRD (S/P/Bld) [Vol rate/Area] 72 mL/min/{1.73_m2} Normal >60 [facility] Comment on above: Result Comment: mL/m in/1.73m2 CKD-EPI Creatinine Equation (2020) Performed By: #### L 500.2500 ####[facility] [address] [place], [address] Glucose [Mass/Vol] 90 mg/dL Normal 70-99 [facility] Comment on above: Performed By: #### L 500.2500 ####[facility] [address] [place], [address] Potassium [Moles/Vol] 3.2 mmol/L Low 3.3-5.1 [facility] Comment on above: Performed By: #### L 500.2500 ####[facility] [address] [place], [address] Sodium [Moles/Vol] 136 mmol/L Normal 133-145 [facility] Comment on above: Performed By: #### L 500.2500 ####[facility] [address] [place], [address] Urea nitrogen [Mass/Vol] 9 mg/dL Normal 4-19 [facility] Comment on above: Performed By: #### L 500.2500 ####[facility] [address] [place], [address] Basic Metabolic Profile (BMP )on 10-31-2024 BUN/CRE 10.7 RATIO Normal 10-20 [facility] Comment on above: Performed By: #### L 100.0500, L500.2500 ####[facility] [address] [place], [address] Calcium [Mass/Vol] 8.6 mg/dL Normal 7.6-11.0 [facility] Comment on above: Performed By: #### L 100.0500, L500.2500 ####[facility] [address] [place], [address] Chloride [Moles/Vol] 100 mmol/L Normal 98-108 [facility] Comment on above: Performed By: #### L 100.0500, L500.2500 ####[facility] [address] [place], [address] CO2 [Moles/Vol] 21.6 mmol/L Normal 21.0-32.0 [facility] Comment on above: Performed By: #### L 100.0500, L500.2500 ####[facility] [address] [place], [address] Creatinine [Mass/Vol] 1.04 mg/dL Normal 0.70-1.20 [facility] Comment on above: Performed By: #### L 100.0500, L500.2500 ####[facility] [address] [place], [address] ECRCL 81.32 ml/min Normal 50-250 [facility] Comment on above: Performed By: #### L 100.0500, L500.2500 ####[facility] [address] [place], [address] GAP 13 Normal 5-15 [facility] Comment on above: Performed By: #### L 100.0500, L500.2500 ####[facility] [address] [place], [address] GFR/1.73 sq M.predicted among non-blacks MDRD (S/P/Bld) [Vol rate/Area] 69 mL/min/{1.73_m2} Normal >60 [facility] Comment on above: Result Comment: mL/m in/1.73m2 CKD-EPI Creatinine Equation (2020) Performed By: #### L 100.0500, L500.2500 ####[facility] [address] [place], [address] Glucose [Mass/Vol] 91 mg/dL Normal 70-99 [facility] Comment on above: Performed By: #### L 100.0500, L500.2500 ####[facility] [address] [place], [address] Potassium [Moles/Vol] 3.2 mmol/L Low 3.3-5.1 [facility] Comment on above: Performed By: #### L 100.0500, L500.2500 ####[facility] [address] [place], [address] Sodium [Moles/Vol] 135 mmol/L Normal 133-145 [facility] Comment on above: Performed By: #### L 100.0500, L500.2500 ####[facility] [address] [place], [address] Urea nitrogen [Mass/Vol] 11 mg/dL Normal 4-19 [facility] Comment on above: Performed By: #### L 100.0500, L500.2500 ####[facility] [address] [place], [address] CBC-Complete Blood Cnt No Di ffon 10-31-2024 Erythrocyte distribution width (RBC) [Ratio] 15.1 % High 11.6-14.6 [facility] Comment on above: Performed By: #### L 100.0500, L500.2500 ####[facility] [address] [place], [address] Hematocrit (Bld) [Volume fraction] 28.9 % Low 37-47 [facility] Comment on above: Performed By: #### L 100.0500, L500.2500 ####[facility] [address] [place], [address] Hemoglobin (Bld) [Mass/Vol] 8.9 g/dL Low 12.0-15.0 [facility] Comment on above: Performed By: #### L 100.0500, L500.2500 ####[facility] [address] [place], [address] MCH (RBC) [Entitic mass] 24.4 pg Low 27.0-32.0 [facility] Comment on above: Performed By: #### L 100.0500, L500.2500 ####[facility] [address] [place], [address] MCHC (RBC) [Mass/Vol] 30.8 g/dL Low 32-36 [facility] Comment on above: Performed By: #### L 100.0500, L500.2500 ####[facility] [address] [place], [address] MCV (RBC) [Entitic vol] 79.2 fL Low 81-99 [facility] [facility] Comment on above: Performed By: #### L 100.0500, L500.2500 ####[facility] [address] [place], [address] Platelet mean volume (Bld) [Entitic vol] 9.0 fL Normal 6.2-12.0 [facility] Comment on above: Performed By: #### L 100.0500, L500.2500 ####[facility] [address] [place], [address] Platelets (Bld) [#/Vol] 357 10*3/uL Normal 150-450 [facility] Comment on above: Performed By: #### L 100.0500, L500.2500 ####[facility] [address] [place], [address] RBC (Bld) [#/Vol] 3.65 10*6/uL Low 4.2-5.[address] [facility] Comment on above: Performed By: #### L 100.0500, L500.2500 ####[facility] [address] [place], [address] RDW SD 43.3 fl Normal 35.1-43.9 [facility] Comment on above: Performed By: #### L 100.0500, L500.2500 ####[facility] [address] [place], [address] WBC (Bld) [#/Vol] 4.9 10*3/uL Normal 4.4-11.0 [facility] Comment on above: Performed By: #### L 100.0500, L500.2500 ####[facility] [address] [place], [address] Basic Metabolic Profile (BMP )on 10-30-2024 BUN/CRE 14.8 RATIO Normal 10-20 [facility] Comment on above: Performed By: #### L 100.0100, L500.2500 ####[facility] [address] [place], [address] Calcium [Mass/Vol] 8.6 mg/dL Normal 7.6-11.0 [facility] Comment on above: Performed By: #### L 100.0100, L500.2500 ####[facility] [address] [place], [address] Chloride [Moles/Vol] 100 mmol/L Normal 98-108 [facility] Comment on above: Performed By: #### L 100.0100, L500.2500 ####[facility] [address] [place], [address] CO2 [Moles/Vol] 22.0 mmol/L Normal 21.0-32.0 [facility] Comment on above: Performed By: #### L 100.0100, L500.2500 ####[facility] [address] [place], [address] Creatinine [Mass/Vol] 1.26 mg/dL High 0.70-1.20 [facility] Comment on above: Performed By: #### L 100.0100, L500.2500 ####[facility] [address] [place], [address] ECRCL 67.12 ml/min Normal 50-250 [facility] Comment on above: Performed By: #### L 100.0100, L500.2500 ####[facility] [address] [place], [address] GAP 14 Normal 5-15 [facility] Comment on above: Performed By: #### L 100.0100, L500.2500 ####[facility] [address] [place], [address] GFR/1.73 sq M.predicted among non-blacks MDRD (S/P/Bld) [Vol rate/Area] 55 mL/min/{1.73_m2} Low >60 [facility] Comment on above: Result Comment: mL/m in/1.73m2 CKD-EPI Creatinine Equation (2020) Performed By: #### L 100.0100, L500.2500 ####[facility] [address] [place], [address] Glucose [Mass/Vol] 96 mg/dL Normal 70-99 [facility] Comment on above: Performed By: #### L 100.0100, L500.2500 ####[facility] [address] [place], [address] Potassium [Moles/Vol] 3.6 mmol/L Normal 3.3-5.1 [facility] Comment on above: Performed By: #### L 100.0100, L500.2500 ####[facility] [address] [place], [address] Sodium [Moles/Vol] 135 mmol/L Normal 133-145 [facility] Comment on above: Performed By: #### L 100.0100, L500.2500 ####[facility] [address] [place], [address] Urea nitrogen [Mass/Vol] 19 mg/dL Normal 4-19 [facility] Comment on above: Performed By: #### L 100.0100, L500.2500 ####[facility] [address] [place], [address] CBC W/Diff, Automatedon 05-0 6-2025 Absolute Lymph 2.28 X10 3/uL Normal 0.83-4.51 [facility] Comment on above: Performed By: #### L 100.0100, L500.2500 ####[facility] [address] [place], [address] Absolute Neut 2.8 X10 3/uL Normal 2.0-7.7 [facility] Comment on above: Performed By: #### L 100.0100, L500.2500 ####[facility] [address] [place], [address] Basophils/100 WBC (Bld) 0.9 % Normal 0-1 [facility] Comment on above: Performed By: #### L 100.0100, L500.2500 ####[facility] [address] [place], [address] Eosinophils/100 WBC (Bld) 2.6 % Normal 0-5 [facility] Comment on above: Performed By: #### L 100.0100, L500.2500 ####[facility] [address] [place], [address] Erythrocyte distribution width (RBC) [Ratio] 15.1 % High 11.6-14.6 [facility] Comment on above: Performed By: #### L 100.0100, L500.2500 ####[facility] [address] [place], [address] Hematocrit (Bld) [Volume fraction] 28.3 % Low 37-47 [facility] Comment on above: Performed By: #### L 100.0100, L500.2500 ####[facility] [address] [place], [address] Hemoglobin (Bld) [Mass/Vol] 9.1 g/dL Low 12.0-15.0 [facility] Comment on above: Performed By: #### L 100.0100, L500.2500 ####[facility] [address] [place], [address] IG% 0.200 Normal 0.0-0.9 [facility] Comment on above: Result Comment: IG% - Immature Granulocytes (promyelocytes, myelocytes andmetamyelocytes) > 1% indicates that a LEFT SHIFT is Present. Performed By: #### L 100.0100, L500.2500 ####[facility] [address] [place], [address] Lymphocytes/100 WBC (Bld) 39.1 % Normal 19-41 [facility] Comment on above: Performed By: #### L 100.0100, L500.2500 ####[facility] [address] [place], [address] MCH (RBC) [Entitic mass] 24.7 pg Low 27.0-32.0 [facility] Comment on above: Performed By: #### L 100.0100, L500.2500 ####[facility] [address] [place], [address] MCHC (RBC) [Mass/Vol] 32.2 g/dL Normal 32-36 [facility] Comment on above: Performed By: #### L 100.0100, L500.2500 ####[facility] [address] [place], [address] MCV (RBC) [Entitic vol] 76.9 fL Low 81-99 [facility] Comment on above: Performed By: #### L 100.0100, L500.2500 ####[facility] [address] [place], [address] Monocytes/100 WBC (Bld) 8.9 % Normal 0-10 [facility] Comment on above: Performed By: #### L 100.0100, L500.2500 ####[facility] [address] [place], [address] Neutrophils/100 WBC (Bld) 48.3 % Normal 47-70 [facility] Comment on above: Performed By: #### L 100.0100, L500.2500 ####[facility] [address] [place], [address] Nucleated RBC (Bld) [#/Vol] 0 10*3/uL Normal 0-5 [facility] Comment on above: Performed By: #### L 100.0100, L500.2500 ####[facility] [address] [place], [address] Platelet mean volume (Bld) [Entitic vol] 9.0 fL Normal 6.2-12.0 [facility] Comment on above: Performed By: #### L 100.0100, L500.2500 ####[facility] [address] [place], [address] Platelets (Bld) [#/Vol] 403 10*3/uL Normal 150-450 [facility] Comment on above: Performed By: #### L 100.0100, L500.2500 ####[facility] [address] [place], [address] RBC (Bld) [#/Vol] 3.68 10*6/uL Low 4.2-5.[address] [facility] Comment on above: Performed By: #### L 100.0100, L500.2500 ####[facility] [address] [place], [address] RDW SD 41.8 fl Normal 35.1-43.9 [facility] Comment on above: Performed By: #### L 100.0100, L500.2500 ####[facility] [address] [place], [address] WBC (Bld) [#/Vol] 5.8 10*3/uL Normal 4.4-11.0 [facility] Comment on above: Performed By: #### L 100.0100, L500.2500 ####[facility] [address] [place], [address] Basic Metabolic Profile (BMP )on 10-29-2024 BUN/CRE 15.4 RATIO Normal 10-20 [facility] Comment on above: Performed By: #### L 501.2300, L100.0100, L501.5200, L500.2500 ####[facility] [address] [place], [address] Calcium [Mass/Vol] 8.5 mg/dL Normal 7.6-11.0 [facility] Comment on above: Performed By: #### L 501.2300, L100.0100, L501.5200, L500.2500 ####[facility] [address] [place], [address] Chloride [Moles/Vol] 95 mmol/L Low 98-108 [facility] Comment on above: Performed By: #### L 501.2300, L100.0100, L501.5200, L500.2500 ####[facility] [address] [place], [address] CO2 [Moles/Vol] 23.1 mmol/L Normal 21.0-32.0 [facility] Comment on above: Performed By: #### L 501.2300, L100.0100, L501.5200, L500.2500 ####[facility] [address] [place], [address] Creatinine [Mass/Vol] 1.93 mg/dL High 0.70-1.20 [facility] Comment on above: Performed By: #### L 501.2300, L100.0100, L501.5200, L500.2500 ####[facility] [address] [place], [address] ECRCL 43.82 ml/min Low 50-250 [facility] Comment on above: Performed By: #### L 501.2300, L100.0100, L501.5200, L500.2500 ####[facility] [address] [place], [address] GAP 12 Normal 5-15 [facility] Comment on above: Performed By: #### L 501.2300, L100.0100, L501.5200, L500.2500 ####[facility] [address] [place], [address] GFR/1.73 sq M.predicted among non-blacks MDRD (S/P/Bld) [Vol rate/Area] 33 mL/min/{1.73_m2} Low >60 [facility] Comment on above: Result Comment: mL/m in/1.73m2 CKD-EPI Creatinine Equation (2020) Performed By: #### L 501.2300, L100.0100, L501.5200, L500.2500 ####[facility] [address] [place], [address] Glucose [Mass/Vol] 100 mg/dL High 70-99 [facility] Comment on above: Performed By: #### L 501.2300, L100.0100, L501.5200, L500.2500 ####[facility] [address] [place], [address] Potassium [Moles/Vol] 3.5 mmol/L Normal 3.3-5.1 [facility] Comment on above: Performed By: #### L 501.2300, L100.0100, L501.5200, L500.2500 ####[facility] [address] [place], [address] Sodium [Moles/Vol] 131 mmol/L Low 133-145 [facility] Comment on above: Performed By: #### L 501.2300, L100.0100, L501.5200, L500.2500 ####[facility] [address] [place], [address] Urea nitrogen [Mass/Vol] 30 mg/dL High 4-19 [facility] Comment on above: Performed By: #### L 501.2300, L100.0100, L501.5200, L500.2500 ####[facility] [address] [place], [address] CBC W/Diff, Automatedon 05-0 5-5 Absolute Lymph 1.54 X10 3/uL Normal 0.83-4.51 [facility] Comment on above: Performed By: #### L 501.2300, L100.0100, L501.5200, L500.2500 ####[facility] [address] [place], [address] Absolute Neut 3.2 X10 3/uL Normal 2.0-7.7 [facility] Comment on above: Performed By: #### L 501.2300, L100.0100, L501.5200, L500.2500 ####[facility] [address] [place], [address] Basophils/100 WBC (Bld) 0.6 % Normal 0-1 [facility] Comment on above: Performed By: #### L 501.2300, L100.0100, L501.5200, L500.2500 ####[facility] [address] [place], [address] Eosinophils/100 WBC (Bld) 1.5 % Normal 0-5 [facility] Comment on above: Performed By: #### L 501.2300, L100.0100, L501.5200, L500.2500 ####[facility] [address] [place], [address] Erythrocyte distribution width (RBC) [Ratio] 15.2 % High 11.6-14.6 [facility] Comment on above: Performed By: #### L 501.2300, L100.0100, L501.5200, L500.2500 ####[facility] [address] [place], [address] Hematocrit (Bld) [Volume fraction] 27.2 % Low 37-47 [facility] Comment on above: Performed By: #### L 501.2300, L100.0100, L501.5200, L500.2500 ####[facility] [address] [place], [address] Hemoglobin (Bld) [Mass/Vol] 8.8 g/dL Low 12.0-15.0 [facility] Comment on above: Performed By: #### L 501.2300, L100.0100, L501.5200, L500.2500 ####[facility] [address] [place], [address] IG% 0.400 Normal 0.0-0.9 [facility] Comment on above: Result Comment: IG% - Immature Granulocytes (promyelocytes, myelocytes andmetamyelocytes) > 1% indicates that a LEFT SHIFT is Present. Performed By: #### L 501.2300, L100.0100, L501.5200, L500.2500 ####[facility] [address] [place], [address] Lymphocytes/100 WBC (Bld) 28.9 % Normal 19-41 [facility] Comment on above: Performed By: #### L 501.2300, L100.0100, L501.5200, L500.2500 ####[facility] [address] [place], [address] MCH (RBC) [Entitic mass] 24.4 pg Low 27.0-32.0 [facility] Comment on above: Performed By: #### L 501.2300, L100.0100, L501.5200, L500.2500 ####[facility] [address] [place], [address] MCHC (RBC) [Mass/Vol] 32.4 g/dL Normal 32-36 [facility] Comment on above: Performed By: #### L 501.2300, L100.0100, L501.5200, L500.2500 ####[facility] [address] [place], [address] MCV (RBC) [Entitic vol] 75.3 fL Low 81-99 [facility] Comment on above: Performed By: #### L 501.2300, L100.0100, L501.5200, L500.2500 ####[facility] [address] [place], [address] Monocytes/100 WBC (Bld) 9.4 % Normal 0-10 [facility] Comment on above: Performed By: #### L 501.2300, L100.0100, L501.5200, L500.2500 ####[facility] [address] [place], [address] Neutrophils/100 WBC (Bld) 59.2 % Normal 47-70 [facility] Comment on above: Performed By: #### L 501.2300, L100.0100, L501.5200, L500.2500 ####[facility] [address] [place], [address] Nucleated RBC (Bld) [#/Vol] 0 10*3/uL Normal 0-5 [facility] Comment on above: Performed By: #### L 501.2300, L100.0100, L501.5200, L500.2500 ####[facility] [address] [place], [address] Platelet mean volume (Bld) [Entitic vol] 9.3 fL Normal 6.2-12.0 [facility] Comment on above: Performed By: #### L 501.2300, L100.0100, L501.5200, L500.2500 ####[facility] [address] [place], [address] Platelets (Bld) [#/Vol] 396 10*3/uL Normal 150-450 [facility] Comment on above: Performed By: #### L 501.2300, L100.0100, L501.5200, L500.2500 ####[facility] [address] [place], [address] RBC (Bld) [#/Vol] 3.61 10*6/uL Low 4.2-5.[address] [facility] Comment on above: Performed By: #### L 501.2300, L100.0100, L501.5200, L500.2500 ####[facility] [address] [place], [address] RDW SD 41.3 fl Normal 35.1-43.9 [facility] Comment on above: Performed By: #### L 501.2300, L100.0100, L501.5200, L500.2500 ####[facility] [address] [place], [address] WBC (Bld) [#/Vol] 5.3 10*3/uL Normal 4.4-11.0 [facility] Comment on above: Performed By: #### L 501.2300, L100.0100, L501.5200, L500.2500 ####[facility] [address] [place], [address] CDIFF (PCR)on 10-29-2024 CDIFF Is the patient recei ving laxatives? N New/unexplained onset of 3 or more stools in past 24 hrs? Y Pending 027 027 NAP1-B1 Presumptive Negative *for epidemiolologic???use C. Diff PCR Negative- No toxigenic C. Diff Detected Normal [facility] Comment on above: Performed By: #### M 100.6796 ####[facility] [address] [place], [address] ENTERIC PATHOGEN PANEL STOOL on 10-29-2024 EP PANEL CAMPYLOBACTER Not Detected Norovirus Not Detected Rotavirus Not Detected Salmonella Not Detected Shiga Toxin Not Detected Shigella sp. Not Detected VIBRIO Not Detected Yersinia Not Detected Normal [facility] Comment on above: Performed By: #### M 100.637 ####[facility] [address] [place], [address] Magnesiumon 10-29-2024 Magnesium [Mass/Vol] 1.5 mg/dL Normal 1.5-2.2 [facility] Comment on above: Performed By: #### L 501.2300, L100.0100, L501.5200, L500.2500 ####[facility] [address] [place], [address] Phosphoruson 10-29-2024 Phosphate [Mass/Vol] 4.0 mg/dL Normal 2.7-4.5 [facility] Comment on above: Performed By: #### L 501.2300, L100.0100, L501.5200, L500.2500 ####[facility] [address] [place], [address] Basic Metabolic Profile (BMP )on 10-28-2024 BUN/CRE 10.4 RATIO Normal 10-20 [facility] Comment on above: Performed By: #### L 500.2500, L100.0100, L501.5200 ####[facility] [address] [place], [address] Calcium [Mass/Vol] 10.5 mg/dL Normal 7.6-11.0 [facility] Comment on above: Performed By: #### L 500.2500, L100.0100, L501.5200 ####[facility] [address] [place], [address] Chloride [Moles/Vol] 81 mmol/L Low 98-108 [facility] Comment on above: Performed By: #### L 500.2500, L100.0100, L501.5200 ####[facility] [address] [place], [address] CO2 [Moles/Vol] 20.9 mmol/L Low 21.0-32.0 [facility] Comment on above: Performed By: #### L 500.2500, L100.0100, L501.5200 ####[facility] [address] [place], [address] Creatinine [Mass/Vol] 3.36 mg/dL High 0.70-1.20 [facility] Comment on above: Performed By: #### L 500.2500, L100.0100, L501.5200 ####[facility] [address] [place], [address] ECRCL 24.64 ml/min Low 50-250 [facility] Comment on above: Performed By: #### L 500.2500, L100.0100, L501.5200 ####[facility] [address] [place], [address] GAP 26 High 5-15 [facility] Comment on above: Performed By: #### L 500.2500, L100.0100, L501.5200 ####[facility] [address] [place], [address] GFR/1.73 sq M.predicted among non-blacks MDRD (S/P/Bld) [Vol rate/Area] 17 mL/min/{1.73_m2} Low >60 [facility] Comment on above: Result Comment: mL/m in/1.73m2 CKD-EPI Creatinine Equation (2020) Performed By: #### L 500.2500, L100.0100, L501.5200 ####[facility] [address] [place], [address] Glucose [Mass/Vol] 165 mg/dL High 70-99 [facility] Comment on above: Performed By: #### L 500.2500, L100.0100, L501.5200 ####[facility] [address] [place], [address] Potassium [Moles/Vol] 4.5 mmol/L Normal 3.3-5.1 [facility] Comment on above: Result Comment: Hemo lysis present, Results??could be affected.?? Performed By: #### L 500.2500, L100.0100, L501.5200 ####[facility] [address] [place], [address] Sodium [Moles/Vol] 127 mmol/L Low 133-145 [facility] Comment on above: Performed By: #### L 500.2500, L100.0100, L501.5200 ####[facility] [address] [place], [address] Urea nitrogen [Mass/Vol] 35 mg/dL High 4-19 [facility] Comment on above: Performed By: #### L 500.2500, L100.0100, L501.5200 ####[facility] [address] [place], [address] CBC W/Diff, Automatedon 05-0 4-2025 Absolute Lymph 2.13 X10 3/uL Normal 0.83-4.51 [facility] Comment on above: Performed By: #### L 500.2500, L100.0100, L501.5200 ####[facility] [address] [place], [address] Absolute Neut 9.2 X10 3/uL High 2.0-7.7 [facility] Comment on above: Performed By: #### L 500.2500, L100.0100, L501.5200 ####[facility] [address] [place], [address] Basophils/100 WBC (Bld) 0.4 % Normal 0-1 [facility] Comment on above: Performed By: #### L 500.2500, L100.0100, L501.5200 ####[facility] [address] [place], [address] Eosinophils/100 WBC (Bld) 0.1 % Normal 0-5 [facility] Comment on above: Performed By: #### L 500.2500, L100.0100, L501.5200 ####[facility] [address] [place], [address] Erythrocyte distribution width (RBC) [Ratio] 15.5 % High 11.6-14.6 [facility] Comment on above: Performed By: #### L 500.2500, L100.0100, L501.5200 ####[facility] [address] [place], [address] Hematocrit (Bld) [Volume fraction] 38.3 % Normal 37-47 [facility] Comment on above: Performed By: #### L 500.2500, L100.0100, L501.5200 ####[facility] [address] [place], [address] Hemoglobin (Bld) [Mass/Vol] 12.2 g/dL Normal 12.0-15.0 [facility] Comment on above: Performed By: #### L 500.2500, L100.0100, L501.5200 ####[facility] [address] [place], [address] IG% 0.500 Normal 0.0-0.9 [facility] Comment on above: Result Comment: IG% - Immature Granulocytes (promyelocytes, myelocytes andmetamyelocytes) > 1% indicates that a LEFT SHIFT is Present. Performed By: #### L 500.2500, L100.0100, L501.5200 ####[facility] [address] [place], [address] Lymphocytes/100 WBC (Bld) 17.1 % Low 19-41 [facility] Comment on above: Performed By: #### L 500.2500, L100.0100, L501.5200 ####[facility] [address] [place], [address] MCH (RBC) [Entitic mass] 24.4 pg Low 27.0-32.0 [facility] Comment on above: Performed By: #### L 500.2500, L100.0100, L501.5200 ####[facility] [address] [place], [address] MCHC (RBC) [Mass/Vol] 31.9 g/dL Low 32-36 [facility] Comment on above: Performed By: #### L 500.2500, L100.0100, L501.5200 ####[facility] [address] [place], [address] MCV (RBC) [Entitic vol] 76.4 fL Low 81-99 [facility] Comment on above: Performed By: #### L 500.2500, L100.0100, L501.5200 ####[facility] [address] [place], [address] Monocytes/100 WBC (Bld) 7.7 % Normal 0-10 [facility] Comment on above: Performed By: #### L 500.2500, L100.0100, L501.5200 ####[facility] [address] [place], [address] Neutrophils/100 WBC (Bld) 74.2 % High 47-70 [facility] Comment on above: Performed By: #### L 500.2500, L100.0100, L501.5200 ####[facility] [address] [place], [address] Nucleated RBC (Bld) [#/Vol] 0 10*3/uL Normal 0-5 [facility] Comment on above: Performed By: #### L 500.2500, L100.0100, L501.5200 ####[facility] [address] [place], [address] Platelet mean volume (Bld) [Entitic vol] 10.1 fL Normal 6.2-12.0 [facility] Comment on above: Performed By: #### L 500.2500, L100.0100, L501.5200 ####[facility] [address] [place], [address] Platelets (Bld) [#/Vol] 675 10*3/uL High 150-450 [facility] Comment on above: Performed By: #### L 500.2500, L100.0100, L501.5200 ####[facility] [address] [place], [address] RBC (Bld) [#/Vol] 5.01 10*6/uL Normal 4.2-5.[address] [facility] Comment on above: Performed By: #### L 500.2500, L100.0100, L501.5200 ####[facility] [address] [place], [address] RDW SD 41.5 fl Normal 35.1-43.9 [facility] Comment on above: Performed By: #### L 500.2500, L100.0100, L501.5200 ####[facility] [address] [place], [address] WBC (Bld) [#/Vol] 12.4 10*3/uL High 4.4-11.[address] [facility] Comment on above: Performed By: #### L 500.2500, L100.0100, L501.5200 ####[facility] [address] [place], [address] Emergency Department Summary on 10-28-2024 Emergency Department Summary Normal [facility] H AND P Exam - Hospitaliston 10-28-2024 H&P Exam - Hospitalist Normal [facility] Magnesiumon 10-28-2024 Magnesium [Mass/Vol] 1.7 mg/dL Normal 1.5-2.2 [facility] Comment on above: Performed By: #### L 500.2500, L100.0100, L501.5200 ####[facility] [address] [place], [address] ALLIED HEALTHon 10-26-2024 ALLIED HEALTH HNO ID: [id number] Author: STEFANY CALVERT RN Service: Wound/Ostomy Author Type: Registered Nurse Type: Allied Health Filed: 10/26/2024 11:49 Note Text: Summary: Ostomy Nurse Visit Ostomy Nurse Consult Reason for Consult: Requested To See Patient Due Having Multiple Issues With Leaking High Output Ostomy Pt has high output colostomy. Patient agreed to education/pouch change today. Cleansed Around Stoma And Removed As Much Paste As Possible. Crusted x3 Layers With Stoma Powder/Skin Prep Applied Domeboro Soak For 10 Mins Applied Gentian Bridgett Around Denuded Skin Used a Large Ostomy Ring (Cut About 1/2 Off Edges) Filled In Crease At 3 O'Clock With Extra Piece Of Ostomy Barrier Ring Cut The Pouch Opening 1 1/2 x 1 1/4 Oval (Coloplast 2Pc Pouch #06322 Convex Wafer #[id number]) Placed Attached 2pc Pouch Over Over Stoma Used 2 Fingers To Press Firmly Around Stoma To Ensure A Good Seal Patient Placed Her Hand Over Completed Pouch For 2 Minutes Patient Refused Drainage Bag At This Time. Patient Educated On Need To Increased Fiber To Help Bulk Up Stools. Patient Advised To Decrease Or Reframe From Eating Salads At This Time - Until Stool Thickens Up. Assessment Stoma Type: Colostomy Size/Diameter: 1 1/2 x 1 1/4 Oval Location: LLQ Protrusion: Flush. Mucosal condition and color: Red Moist Mucocutaneous junction: Intact Peristomal Skin: Denuded Red Painful Location of Skin Impairment: 9 O'clock Character of output: Yellow Liquid With Small Particles Noted Emptying frequency per day: Patient Independent Recommended Supplies: Coloplast 2pc High Output #40856 Pouch attached to drainage bag Coloplast #01268 Convex Wafer Cut To 1 1/2 x 1 1/4 Oval [place] #[id number] Large Barrier Ring [place] Barrier Extenders # [id number] Please Advise Wound Care [phone] If You Have Difficulty Getting Supplies From Cart Room. Patient tolerated the change well. Supplies at bedside. If additional ostomy supplies are needed, please call [facility] ([phone]) for above mentioned supplies. If supplies are unavailable in [facility], please secure chat [facility] or call extension [phone] to request more supplies. Normal [facility] CBC panel Auto (Bld)on 10-26 Erythrocyte distribution width (RBC) [Ratio] 14.7 % Normal 11.5-15.0 [facility] Comment on above: Order Comment: Speci men Type: BLOOD SPECIMEN Ordering Facility: [facility] Address: [address] [place] [address] Performed By: #### 5 7021-8 #### [facility] CLIA [id number] [address] [place] [address] [place] Hematocrit (Bld) [Volume fraction] 29.9 % Low 36.0-46.0 [facility] Comment on above: Order Comment: Speci men Type: BLOOD SPECIMEN Ordering Facility: [facility] Address: [address] [place] [address] Performed By: #### 5 7021-8 #### [facility] CLIA [id number] [address] [place] [address] [place] Hemoglobin (Bld) [Mass/Vol] 9.2 g/dL Low 11.5-15.5 [facility] Comment on above: Order Comment: Speci men Type: BLOOD SPECIMEN Ordering Facility: [facility] Address: [address] [place] [address] Performed By: #### 5 7021-8 #### [facility] CLIA [id number] [address] [place] [address] [place] MCH (RBC) [Entitic mass] 24.1 pg Low 26.0-34.0 [facility] Comment on above: Order Comment: Speci men Type: BLOOD SPECIMEN Ordering Facility: [facility] Address: [address] [place] [address] Performed By: #### 5 7021-8 #### [facility] CLIA [id number] [address] [place] [address] [place] MCHC (RBC) [Mass/Vol] 30.8 g/dL Normal 30.5-36.0 [facility] Comment on above: Order Comment: Speci men Type: BLOOD SPECIMEN Ordering Facility: [facility] Address: [address] [place] [address] Performed By: #### 5 7021-8 #### [facility] CLIA [id number] [address] [place] [address] [place] MCV (RBC) [Entitic vol] 78.5 fL Low 80.0-100.0 [facility] Comment on above: Order Comment: Speci men Type: BLOOD SPECIMEN Ordering Facility: [facility] Address: [address] [place] [address] Performed By: #### 5 7021-8 #### [facility] CLIA [id number] [address] [place] [address] [place] Nucleated RBC (Bld) [#/Vol] 10*3/uL Normal <0.01 [facility] Comment on above: Order Comment: Speci men Type: BLOOD SPECIMEN Ordering Facility: [facility] Address: [address] [place] [address] Performed By: #### 5 7021-8 #### [facility] CLIA [id number] [address] [place] [address] [place] Platelet mean volume (Bld) [Entitic vol] 8.9 fL Low 9.0-12.7 [facility] Comment on above: Order Comment: Speci men Type: BLOOD SPECIMEN Ordering Facility: [facility] Address: [address] [place] [address] Performed By: #### 5 7021-8 #### [facility] CLIA [id number] [address] [place] [address] [place] Platelets (Bld) [#/Vol] 371 10*3/uL Normal 150-400 [facility] Comment on above: Order Comment: Speci men Type: BLOOD SPECIMEN Ordering Facility: [facility] Address: [address] [place] [address] Performed By: #### 5 7021-8 #### [facility] CLIA [id number] [address] [place], [place] [id number] [facility] [place] RBC (Bld) [#/Vol] 3.81 10*6/uL Low 3.90-5.20 [facility] Comment on above: Order Comment: Speci men Type: BLOOD SPECIMEN Ordering Facility: [facility] Address: [address] [place] [address] Performed By: #### 5 7021-8 #### [facility] CLIA [id number] [address] [place], [place] [id number] [facility] WBC (Bld) [#/Vol] 4.79 10*3/uL Normal 3.70-11.00 [facility] Comment on above: Order Comment: Speci men Type: BLOOD SPECIMEN Ordering Facility: [facility] Address: [address] [place] [address] Performed By: #### 5 7021-8 #### [facility] CLIA [id number] [address] [place], [place] [address] [facility] CNDSon 10-26-2024 CNDS HNO ID: [id number] Author: WILLIS EMMANUEL DO Service: Hospital Medicine Author Type: Physician Type: Discharge Summary Filed: 10/26/2024 15:42 Note Text: DISCHARGE SUMMARY PATIENT NAME: Daly Estrella Lover ADMISSION DATE: 10/19/2024 DISCHARGE DATE: 10/26/2024 ATTENDING PHYSICIAN: Willis Emmanuel DO Code Status: Full Code CONSULTING TEAMS DURING HOSPITALIZATION: Gastroenterology Podiatry REASON FOR HOSPITALIZATION: Diarrhea, acute kidney injury, hyponatremia, hypokalemia DIAGNOSIS: Diarrhea 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 ED due to high output ostomy She had evidence of renal failure as well as multiple electrolyte abnormalities (see below) Gastroenterology consulted C. diff negative Stool PCR negative Home Imodium dose was increased Ostomy care offered Output did lessen Patient will follow-up at [facility] with her surgeon Dr. Smith as well as transplant surgeon Dr. Devine [facility] Likely secondary to GI losses Patient given IV fluids Creatinine normalized by discharge Hyponatremia Sodium [address] [facility] ED Likely secondary to GI losses Patient given IV fluids Hypokalemia Potassium 3.[address] [facility] ED Likely secondary to GI losses Supplementation provided Rx for potassium chloride provided on discharge Left foot discoloration, ?gangrene Left toes are black, per patient this began while she was at [facility] Chart review indicates she had bilateral lower extremity tibial thromboemboli and underwent thromboembolectomy of the anterior tibial, posterior tibial, and peroneal arteries Podiatry consulted X-rays obtained showed no evidence of osteomyelitis I spoke with Dr. Garcia, he had no immediate plans for surgical intervention this admission Local wound care offered Patient will follow-up with Dr. Garcia in the outpatient setting Therapeutic Lovenox continued Chronic comorbidities Bipolar disorder Anxiety Hx of substance abuse Patient discharged home with home health care on 10/26. PHYSICAL EXAM: BP 95/62 Pulse 111 Temp (Src) 98.3 (Oral) Resp 18 Ht 5' 7 (1.70m) Wt 190 lb 7.6 oz (86.4kg) SpO2 100% LMP 08/29/2024 BMI 29.83 kg/(m2). O2 Therapy: Room Air General: alert and oriented x3, resting comfortably Neck: supple, no hepatojugular reflux or jugular venous distention, no carotid bruits Lungs: clear to auscultation bilaterally, no wheezing, rales, or rhonchi Cardiac: regular rate and rhythm, normal S1 and S2, no murmurs, gallops, or rubs Abdomen: ostomy in place and draining liquid contents, soft, nontender, nondistended, bowel sounds present Extremities: no edema, cyanosis, or clubbing Skin: no rashes or breakdown Lymphatic: no cervical or supraclavicular lymphadenopathy Neurologic: cranial nerves II-XII are grossly intact Psychiatry: normal affect, no hallucinations, no suicidal ideation DISCHARGE MEDICATION: Medication List START taking these medications potassium chloride ER 20 mEq tablet Commonly known as: KLOR-CON M20 Take 2 tablets by mouth once daily. CHANGE how you take these medications loperamide 2 mg cap(s) Commonly known as: IMODIUM Take 2 capsules by mouth three times a day. What changed: how much to take when to take this CONTINUE taking these medications aspirin 81 mg chewable tablet Take 1 tablet by mouth once daily. atorvastatin 40 mg tablet Commonly known as: LIPITOR Take 1 tablet by mouth daily at bedtime. dextrose 15 gram/32 mL oral gel Commonly known as: TRUEPLUS Take 32 mL by mouth as needed (blood glucose is less than 70 mg/dL). enoxaparin 100 mg/mL Syrg Commonly known as: LOVENOX Inject 0.9 mL subcutaneously every 12 hours. escitalopram oxalate 20 mg tablet Commonly known as: LEXAPRO Take 1 tablet by mouth once daily. gabapentin 600 mg tablet Commonly known as: NEURONTIN Take 1 tablet by mouth every 8 hours for 90 days. magnesium oxide 400 mg (241.3 mg magnesium) tablet Commonly known as: MAG-OX OLANZapine 20 mg tablet Commonly known as: ZYPREXA ondansetron orally disintegrating 4 mg disintegrating tablet Commonly known as: ZOFRAN ODT OTC NUTRITIONAL SUPPLEMENT pantoprazole DR 40 mg tablet Commonly known as: PROTONIX Take 1 tablet by mouth two times a day. STOP taking these medications insulin lispro 100 unit/mL injection Commonly known as: HumaLOG Where to Get Your Medications These medications were sent to [facility]- [id number] [place] [address] [address] (more content not included)... Normal [facility] Comprehensive metabolic 2000 panelon 10-26-2024 Albumin [Mass/Vol] 3.0 g/dL Low 3.2-5.0 [facility] Comment on above: Order Comment: Dora finch Type: BLOOD SPECIMEN Ordering Facility: [facility] Address: [address] [place] [address] Performed By: #### 5 7021-8 #### [facility] CLIA [id number] [address] [place] [address] [place] ALP [Catalytic activity/Vol] 125 U/L High 45-117 [facility] Comment on above: Order Comment: Dora finch Type: BLOOD SPECIMEN Ordering Facility: [facility] Address: [address] [place] [address] Performed By: #### 5 7021-8 #### [facility] CLIA [id number] [address] [place] [address] [place] ALT [Catalytic activity/Vol] 16 U/L Normal 13-61 [facility] Comment on above: Order Comment: Dora finch Type: BLOOD SPECIMEN Ordering Facility: [facility] Address: [address] [place] [address] Result Comment: Resu lts may be falsely depressed after the administration of Sulfasalazine and/or Sulfapyridine. Performed By: #### 5 7021-8 #### [facility] CLIA [id number] [address] [place] [address] [place] Anion gap [Moles/Vol] 9 mmol/L Normal 5-16 [facility] Comment on above: Order Comment: Dora finch Type: BLOOD SPECIMEN Ordering Facility: [facility] Address: [address] [place] [address] Performed By: #### 5 7021-8 #### [facility] CLIA [id number] [address] [place] [address] [place] AST [Catalytic activity/Vol] 24 U/L Normal 8-34 [facility] Comment on above: Order Comment: Dora finch Type: BLOOD SPECIMEN Ordering Facility: [facility] Address: [address] [place] [address] Result Comment: Resu lts may be falsely depressed after the administration of Sulfasalazine and/or Sulfapyridine. Performed By: #### 5 7021-8 #### [facility] CLIA [id number] [address] [place] [address] [place] Bilirubin [Mass/Vol] 1.2 mg/dL High 0.2-1.0 [facility] Comment on above: Order Comment: Dora finch Type: BLOOD SPECIMEN Ordering Facility: [facility] Address: [address] [place] [address] Performed By: #### 5 7021-8 #### [facility] CLIA [id number] [address] [place] [address] [place] Calcium [Mass/Vol] 9.5 mg/dL Normal 8.5-10.5 [facility] Comment on above: Order Comment: Speci men Type: BLOOD SPECIMEN Ordering Facility: [facility] Address: [address] [place] [address] Performed By: #### 5 7021-8 #### [facility] CLIA [id number] [address] [place] [address] [place] Chloride [Moles/Vol] 94 mmol/L Low 98-107 [facility] Comment on above: Order Comment: Speci men Type: BLOOD SPECIMEN Ordering Facility: [facility] Address: [address] [place] [address] Performed By: #### 5 7021-8 #### [facility] CLIA [id number] [address] [place] [address] [place] CO2 [Moles/Vol] 30 mmol/L Normal 21-32 [facility] Comment on above: Order Comment: Speci men Type: BLOOD SPECIMEN Ordering Facility: [facility] Address: [address] [place] [address] Performed By: #### 5 7021-8 #### [facility] CLIA [id number] [address] [place] [address] [place] Creatinine [Mass/Vol] 0.92 mg/dL Normal 0.51-0.95 [facility] Comment on above: Order Comment: Speci men Type: BLOOD SPECIMEN Ordering Facility: [facility] Address: [address] [place] [address] Result Comment: Marissa ents receiving either N-Acetylcysteine (NAC) or Metamizole prior to venipuncture, may have falsely depressed results. Performed By: #### 5 7021-8 #### [facility] CLIA [id number] [address] [place] [address] [place] Creatinine and Glomerular filtration rate.predicted panel (S/P/Bld) 80 mL/min/1.73m??? Normal >=60 [facility] Comment on above: Order Comment: Speci men Type: BLOOD SPECIMEN Ordering Facility: [facility] Address: [address] [place] [address] Result Comment: Zeny mated Glomerular Filtration Rate (eGFR) is calculated using the 2020 CKD-EPI creatinine equation. This equation utilizes serum creatinine, sex, and age as parameters. The creatinine assay has traceable calibration to isotope dilution-mass spectrometry. Refer to KDIGO guidelines for clinical interpretation. In patients with unstable renal function, e.g. those with acute kidney injury, the eGFR may not accurately reflect actual GFR. Performed By: #### 5 7021-8 #### [facility] CLIA [id number] [address] [place] [address] [place] Glucose [Mass/Vol] 100 mg/dL Normal 70-100 [facility] Comment on above: Order Comment: Dora finch Type: BLOOD SPECIMEN Ordering Facility: [facility] Address: [address] [place] [address] Result Comment: The [place] [employer] (ADA) provides guidance for cutoff values for fasting glucose and random glucose. The ADA defines fasting as no caloric intake for at least 8 hours. Fasting plasma glucose results between 100 to 125 mg/dL indicate increased risk for diabetes (prediabetes). Fasting plasma glucose results greater than or equal to 126 mg/dL meet the criteria for diagnosis of diabetes. In the absence of unequivocal hyperglycemia, results should be confirmed by repeat testing. In a patient with classic symptoms of hyperglycemia or hyperglycemic crisis, random plasma glucose results greater than or equal to 200 mg/dL meet the criteria for diagnosis of diabetes. Reference: Standards of Medical Care in Diabetes 2016, [place] [employer]. Diabetes Care. 2016.39(Suppl 1). Results may be falsely elevated after the administration of Sulfapyridine. Results may be falsely depressed after the administration of Sulfasalazine. Performed By: #### 5 7021-8 #### [facility] CLIA [id number] [address] [place] [address] [place] Potassium [Moles/Vol] 3.4 mmol/L Low 3.5-5.1 [facility] Comment on above: Order Comment: Dora finch Type: BLOOD SPECIMEN Ordering Facility: [facility] Address: [address] [place] [id number] Performed By: #### 5 7021-8 #### [facility] CLIA [id number] [address] [place] [address] [place] Protein [Mass/Vol] 7.3 g/dL Normal 6.0-8.5 [facility] Comment on above: Order Comment: Speci men Type: BLOOD SPECIMEN Ordering Facility: [facility] Address: [address] [place] [address] Performed By: #### 5 7021-8 #### [facility] CLIA [id number] [address] [place] [address] [place] Sodium [Moles/Vol] 133 mmol/L Low 136-145 [facility] Comment on above: Order Comment: Speci men Type: BLOOD SPECIMEN Ordering Facility: [facility] Address: [address] [place] [address] Performed By: #### 5 7021-8 #### [facility] CLIA [id number] [address] [place] [address] [place] Urea nitrogen [Mass/Vol] 8 mg/dL Normal 7-26 [facility] Comment on above: Order Comment: Speci men Type: BLOOD SPECIMEN Ordering Facility: [facility] Address: [address] [place] [address] Performed By: #### 5 7021-8 #### [facility] CLIA [id number] [address] [place] [address] [place] Magnesium SerPl-mCncon 10-26 Magnesium [Mass/Vol] 1.5 mg/dL Low 1.6-2.6 [facility] Comment on above: Order Comment: Speci men Type: BLOOD SPECIMEN Ordering Facility: [facility] Address: [address] [place] [address] Performed By: #### 2 4321-2 #### [facility] CLIA [id number] [address] [place] [address] [place] ALLIED HEALTHon 10-25-2024 ALLIED HEALTH HNO ID: [id number] Author: STEFANY CALVERT RN Service: Wound/Ostomy Author Type: Registered Nurse Type: Allied Health Filed: 10/26/2024 11:40 Note Text: Summary: Ostomy Nurse Visit Ostomy Nurse Consult Reason for Consult: Leaking High Output Ostomy Outcome: Pt has ileostomy / colostomy / urostomy. Patient agreed to education/pouch change today. Patient tolerated the change well. Supplies at bedside. Next Scheduled Visit: Assessment Stoma Type: Colostomy Size/Diameter: 1 1/2 x 1 1/4 Ocal Location: LLQ Protrusion: Flush Mucosal condition and color: Red Moist Mucocutaneous junction: Intact Peristomal Skin: Denuded Red Painful Location of Skin Impairment: 9 O'clock Character of output: Yellow Liquid With Small Particles Noted Emptying frequency per day: per floor nursing Recommended Supplies: Coloplast 2pc High Output #67506 Pouch attached to drainage bag Coloplast #55957 Convex Wafer Cut To 1 1/2 x 1 1/4 Oval [place] #4015 Small Barrier Ring [place] Barrier Extenders # [id number] Please Advise Wound Care [phone] If You Have Difficulty Getting Supplies From Cart Room. If additional ostomy supplies are needed, please call [facility] ([phone]) for above mentioned supplies. If supplies are unavailable in [facility], please secure chat [facility] or call extension [phone] to request more supplies. [facility] ALLIED HEALTH HNO ID: [id number] Author: STEFANY CALVERT RN Service: Wound/Ostomy Author Type: Registered Nurse Type: Allied Health Filed: 10/25/2024 09:06 Note Text: Summary: Ostomy Nurse Visit Ostomy Nurse Was Requested To See Patient For Additional Education And Supplies. Ostomy Nurse Spoke With Patient - Patient Stated She Was Good With Changing Her Ostomy Pouch And Would Have Nurses Assist If Needed, But That She Used The Last Pouch This AM. I Advised Covering RN Lyla That The Supplies Are Available Through Cart/Supply Room In [facility]. Recommended Supplies: Coloplast 2pc High Output #54863 Pouch attached to drainage bag Coloplast #49104 Flat Wafer [place] #8815 Small Barrier Ring [place] Barrier Extenders # [id number] Please Advise Wound Care [phone] If You Have Difficulty Getting Supplies From Cart Room. Normal [facility] CBC panel Auto (Bld)on 10-25 Erythrocyte distribution width (RBC) [Ratio] 14.8 % Normal 11.5-15.0 [facility] Comment on above: Order Comment: Dora finch Type: BLOOD SPECIMEN Ordering Facility: [facility] Address: [address] [place] [address] Performed By: #### 5 7021-8 #### [facility] CLIA [id number] [address] [place], [place] [address] [facility] Hematocrit (Bld) [Volume fraction] 33.3 % Low 36.0-46.0 [facility] Comment on above: Order Comment: Dora finch Type: BLOOD SPECIMEN Ordering Facility: [facility] Address: [address] [place] [address] Performed By: #### 5 7021-8 #### [facility] CLIA [id number] [address] [place], [place] [id number] [address] OF [place] Hemoglobin (Bld) [Mass/Vol] 10.3 g/dL Low 11.5-15.5 [facility] Comment on above: Order Comment: Speci men Type: BLOOD SPECIMEN Ordering Facility: [facility] Address: [address] [place] [address] Performed By: #### 5 7021-8 #### [facility] CLIA [id number] [address] [place] [address] [place] MCH (RBC) [Entitic mass] 24.0 pg Low 26.0-34.0 [facility] Comment on above: Order Comment: Speci men Type: BLOOD SPECIMEN Ordering Facility: [facility] Address: [address] [place] [address] Performed By: #### 5 7021-8 #### [facility] CLIA [id number] [address] [place] [address] [place] MCHC (RBC) [Mass/Vol] 30.9 g/dL Normal 30.5-36.0 [facility] Comment on above: Order Comment: Speci men Type: BLOOD SPECIMEN Ordering Facility: [facility] Address: [address] [place] [address] Performed By: #### 5 7021-8 #### [facility] CLIA [id number] [address] [place] [address] [place] MCV (RBC) [Entitic vol] 77.6 fL Low 80.0-100.0 [facility] Comment on above: Order Comment: Speci men Type: BLOOD SPECIMEN Ordering Facility: [facility] Address: [address] [place] [address] Performed By: #### 5 7021-8 #### [facility] CLIA [id number] [address] [place] [address] [place] Nucleated RBC (Bld) [#/Vol] 10*3/uL Normal <0.01 [facility] Comment on above: Order Comment: Speci men Type: BLOOD SPECIMEN Ordering Facility: [facility] Address: [address] [place] [address] Performed By: #### 5 7021-8 #### [facility] CLIA [id number] [address] [place], [place] [id number] [place] Platelet mean volume (Bld) [Entitic vol] 9.3 fL Normal 9.0-12.7 [facility] Comment on above: Order Comment: Speci men Type: BLOOD SPECIMEN Ordering Facility: [facility] Address: [address] [place], [place] [address] Performed By: #### 5 7021-8 #### [facility] CLIA [id number] [address] [place] [address] [place] Platelets (Bld) [#/Vol] 364 10*3/uL Normal 150-400 [facility] Comment on above: Order Comment: Speci men Type: BLOOD SPECIMEN Ordering Facility: [facility] Address: [address] [place] [address] Performed By: #### 5 7021-8 #### [facility] CLIA [id number] [address] [place] [address] [place] RBC (Bld) [#/Vol] 4.29 10*6/uL Normal 3.90-5.20 [facility] Comment on above: Order Comment: Speci men Type: BLOOD SPECIMEN Ordering Facility: [facility] Address: [address] [place], [place] [address] Performed By: #### 5 7021-8 #### [facility] CLIA [id number] [address] [place] [address] [place] WBC (Bld) [#/Vol] 6.18 10*3/uL Normal 3.70-11.00 [facility] Comment on above: Order Comment: Speci men Type: BLOOD SPECIMEN Ordering Facility: [facility] Address: [address] [place] [address] Performed By: #### 5 7021-8 #### [facility] CLIA [id number] [address] [place], [place] [address] [facility] [place] Comprehensive metabolic 2000 panelon 10-25-2024 Albumin [Mass/Vol] 3.0 g/dL Low 3.2-5.0 [facility] Comment on above: Order Comment: Speci men Type: BLOOD SPECIMEN Ordering Facility: [facility] Address: [address] [place] [address] Performed By: #### 5 7021-8 #### [facility] CLIA [id number] [address] [place] [address] [place] ALP [Catalytic activity/Vol] 137 U/L High 45-117 [facility] Comment on above: Order Comment: Speci men Type: BLOOD SPECIMEN Ordering Facility: [facility] Address: [address] [place] [address] Performed By: #### 5 7021-8 #### [facility] CLIA [id number] [address] [place] [address] [place] ALT [Catalytic activity/Vol] 14 U/L Normal 13-61 [facility] Comment on above: Order Comment: Speci men Type: BLOOD SPECIMEN Ordering Facility: [facility] Address: [address] [place] [address] Result Comment: Resu lts may be falsely depressed after the administration of Sulfasalazine and/or Sulfapyridine. Performed By: #### 5 7021-8 #### [facility] CLIA [id number] [address] [place] [address] [place] Anion gap [Moles/Vol] 9 mmol/L Normal 5-16 [facility] Comment on above: Order Comment: Speci men Type: BLOOD SPECIMEN Ordering Facility: [facility] Address: [address] [place] [address] Performed By: #### 5 7021-8 #### [facility] CLIA [id number] [address] [place] [address] [place] AST [Catalytic activity/Vol] 16 U/L Normal 8-34 [facility] Comment on above: Order Comment: Speci men Type: BLOOD SPECIMEN Ordering Facility: [facility] Address: [address] [place] [address] Result Comment: Resu lts may be falsely depressed after the administration of Sulfasalazine and/or Sulfapyridine. Performed By: #### 5 7021-8 #### [facility] CLIA [id number] [address] [place] [address] [place] Bilirubin [Mass/Vol] 1.3 mg/dL High 0.2-1.0 [facility] Comment on above: Order Comment: Speci men Type: BLOOD SPECIMEN Ordering Facility: [facility] Address: [address] [place] [address] Performed By: #### 5 7021-8 #### [facility] CLIA [id number] [address] [place] [address] [place] Calcium [Mass/Vol] 9.6 mg/dL Normal 8.5-10.5 [facility] Comment on above: Order Comment: Speci men Type: BLOOD SPECIMEN Ordering Facility: [facility] Address: [address] [place] [address] Performed By: #### 5 7021-8 #### [facility] CLIA [id number] [address] [place] [address] [place] Chloride [Moles/Vol] 93 mmol/L Low 98-107 [facility] Comment on above: Order Comment: Speci men Type: BLOOD SPECIMEN Ordering Facility: [facility] Address: [address] [place] [address] Performed By: #### 5 7021-8 #### [facility] CLIA [id number] [address] [place] [address] [place] CO2 [Moles/Vol] 33 mmol/L High 21-32 [facility] Comment on above: Order Comment: Speci men Type: BLOOD SPECIMEN Ordering Facility: [facility] Address: [address] [place] [address] Performed By: #### 5 7021-8 #### [facility] CLIA [id number] [address] [place] [address] [place] Creatinine [Mass/Vol] 1.00 mg/dL High 0.51-0.95 [facility] Comment on above: Order Comment: Dora finch Type: BLOOD SPECIMEN Ordering Facility: [facility] Address: [address] [place] [address] Result Comment: Marissa ents receiving either N-Acetylcysteine (NAC) or Metamizole prior to venipuncture, may have falsely depressed results. Performed By: #### 5 7021-8 #### [facility] CLIA [id number] [address] [place] [address] [facility] [place] Creatinine and Glomerular filtration rate.predicted panel (S/P/Bld) 73 mL/min/1.73m??? Normal >=60 [facility] Comment on above: Order Comment: Dora finch Type: BLOOD SPECIMEN Ordering Facility: [facility] Address: [address] [place] [address] Result Comment: Zeny mated Glomerular Filtration Rate (eGFR) is calculated using the 2020 CKD-EPI creatinine equation. This equation utilizes serum creatinine, sex, and age as parameters. The creatinine assay has traceable calibration to isotope dilution-mass spectrometry. Refer to KDIGO guidelines for clinical interpretation. In patients with unstable renal function, e.g. those with acute kidney injury, the eGFR may not accurately reflect actual GFR. Performed By: #### 5 7021-8 #### [facility] CLIA [id number] [address] [place] [address] [place] Glucose [Mass/Vol] 89 mg/dL Normal 70-100 [facility] Comment on above: Order Comment: Dora finch Type: BLOOD SPECIMEN Ordering Facility: [facility] Address: [address] [place] [address] Result Comment: The [place] [employer] (ADA) provides guidance for cutoff values for fasting glucose and random glucose. The ADA defines fasting as no caloric intake for at least 8 hours. Fasting plasma glucose results between 100 to 125 mg/dL indicate increased risk for diabetes (prediabetes). Fasting plasma glucose results greater than or equal to 126 mg/dL meet the criteria for diagnosis of diabetes. In the absence of unequivocal hyperglycemia, results should be confirmed by repeat testing. In a patient with classic symptoms of hyperglycemia or hyperglycemic crisis, random plasma glucose results greater than or equal to 200 mg/dL meet the criteria for diagnosis of diabetes. Reference: Standards of Medical Care in Diabetes 2016, [place] [employer]. Diabetes Care. 2016.39(Suppl 1). Results may be falsely elevated after the administration of Sulfapyridine. Results may be falsely depressed after the administration of Sulfasalazine. Performed By: #### 5 7021-8 #### [facility] CLIA [id number] [address] [place] [address] [place] Potassium [Moles/Vol] 3.4 mmol/L Low 3.5-5.1 [facility] Comment on above: Order Comment: Florii stef Type: BLOOD SPECIMEN Ordering Facility: [facility] Address: [address] [place] [address] Performed By: #### 5 7021-8 #### [facility] CLIA [id number] [address] [place] [address] [place] Protein [Mass/Vol] 7.7 g/dL Normal 6.0-8.5 [facility] Comment on above: Order Comment: Florii stef Type: BLOOD SPECIMEN Ordering Facility: [facility] Address: [address] [place] [address] Performed By: #### 5 7021-8 #### [facility] CLIA [id number] [address] [place] [address] [place] Sodium [Moles/Vol] 135 mmol/L Low 136-145 [facility] Comment on above: Order Comment: Dora finch Type: BLOOD SPECIMEN Ordering Facility: [facility] Address: [address] [place] [address] Performed By: #### 5 7021-8 #### [facility] CLIA [id number] [address] [place] [address] [place] Urea nitrogen [Mass/Vol] 11 mg/dL Normal 7-26 [facility] Comment on above: Order Comment: Dora finch Type: BLOOD SPECIMEN Ordering Facility: [facility] Address: [address] [place] [address] Performed By: #### 5 7021-8 #### [facility] CLIA [id number] [address] [place] [id number] [place] Magnesium SerPl-mCncon 10-25 Magnesium [Mass/Vol] 1.7 mg/dL Normal 1.6-2.6 [facility] Comment on above: Order Comment: Speci men Type: BLOOD SPECIMEN Ordering Facility: [facility] Address: [address] [place] [address] Performed By: #### 5 7021-8 #### [facility] CLIA [id number] [address] [place] [address] [place] CBC panel Auto (Bld)on 10-24 Erythrocyte distribution width (RBC) [Ratio] 14.8 % Normal 11.5-15.0 [facility] Comment on above: Order Comment: Speci men Type: BLOOD SPECIMENOrdering Facility: [facility] Address: [address] [place] [address] Performed By: #### 5 8410-2 ####[facility] [id number] [address] [place] Hematocrit (Bld) [Volume fraction] 32.6 % Low 36.0-46.0 [facility] Comment on above: Order Comment: Speci men Type: BLOOD SPECIMENOrdering Facility: [facility] Address: [address] [place] [address] Performed By: #### 5 8410-2 ####[facility] [id number] [place] [address] [place] Hemoglobin (Bld) [Mass/Vol] 10.3 g/dL Low 11.5-15.5 [facility] Comment on above: Order Comment: Speci men Type: BLOOD SPECIMENOrdering Facility: [facility] Address: [address] [place] [address] Performed By: #### 5 8410-2 ####[facility] [id number] [place] [id number] [place] MCH (RBC) [Entitic mass] 24.1 pg Low 26.0-34.0 [facility] Comment on above: Order Comment: Speci men Type: BLOOD SPECIMENOrdering Facility: [facility] Address: [address] [place] [address] Performed By: #### 5 8410-2 ####[facility] [id number] [address] [place] [facility] MCHC (RBC) [Mass/Vol] 31.6 g/dL Normal 30.5-36.0 [facility] Comment on above: Order Comment: Speci men Type: BLOOD SPECIMENOrdering Facility: [facility] Address: [address] [place] [address] Performed By: #### 5 8410-2 ####[facility] [id number] [place] [address] [place] MCV (RBC) [Entitic vol] 76.2 fL Low 80.0-100.0 [facility] Comment on above: Order Comment: Speci men Type: BLOOD SPECIMENOrdering Facility: [facility] Address: [address] [place] [address] Performed By: #### 5 8410-2 ####[facility] [id number] [address] [place] Nucleated RBC (Bld) [#/Vol] 10*3/uL Normal <0.01 [facility] Comment on above: Order Comment: Speci men Type: BLOOD SPECIMENOrdering Facility: [facility] Address: [address] [place] [address] Performed By: #### 5 8410-2 ####[facility] [id number] [address] [place] Platelet mean volume (Bld) [Entitic vol] 8.7 fL Low 9.0-12.7 [facility] Comment on above: Order Comment: Speci men Type: BLOOD SPECIMENOrdering Facility: [facility] Address: [address] [place] [address] Performed By: #### 5 8410-2 ####[facility] [id number] [place] [id number] [facility] [place] Platelets (Bld) [#/Vol] 408 10*3/uL High 150-400 [facility] Comment on above: Order Comment: Speci men Type: BLOOD SPECIMENOrdering Facility: [facility] Address: [address] [place] [address] Performed By: #### 5 8410-2 ####[facility] [id number] [place] [id number] [place] RBC (Bld) [#/Vol] 4.28 10*6/uL Normal 3.90-5.20 [facility] Comment on above: Order Comment: Speci men Type: BLOOD SPECIMENOrdering Facility: [facility] Address: [address] [place] [address] Performed By: #### 5 8410-2 ####[facility] [id number] [place] [id number] [facility] WBC (Bld) [#/Vol] 6.06 10*3/uL Normal 3.70-11.00 [facility] Comment on above: Order Comment: Speci men Type: BLOOD SPECIMENOrdering Facility: [facility] Address: [address] [place] [address] Performed By: #### 5 8410-2 ####[facility] [id number] [place] [id number] [facility] [place] Comprehensive metabolic 2000 panelon 10-24-2024 Albumin [Mass/Vol] 3.1 g/dL Low 3.2-5.0 [facility] Comment on above: Order Comment: Speci men Type: BLOOD SPECIMENOrdering Facility: [facility] Address: [address] [place] [address] Performed By: #### 1 9123-9, 99427-2 ####[facility] [id number] [place] [id number] [facility] [place] ALP [Catalytic activity/Vol] 131 U/L High 45-117 [facility] Comment on above: Order Comment: Speci men Type: BLOOD SPECIMENOrdering Facility: [facility] Address: [address] [place] [address] Performed By: #### 1 9123-9, 11082-5 ####[facility] [id number] [place] [address] [place] ALT [Catalytic activity/Vol] 15 U/L Normal 13-61 [facility] Comment on above: Order Comment: Speci men Type: BLOOD SPECIMENOrdering Facility: [facility] Address: [address] [place] [address] Result Comment: Resu lts may be falsely depressed after the administration of Sulfasalazine and/or Sulfapyridine. Performed By: #### 1 9123-9, 57185-6 ####[facility] [id number] [address] [place] Anion gap [Moles/Vol] 10 mmol/L Normal 5-16 [facility] Comment on above: Order Comment: Speci men Type: BLOOD SPECIMENOrdering Facility: [facility] Address: [address] [place] [address] Performed By: #### 1 9123-9, 21810-2 ####[facility] [id number] [place] [address] [place] AST [Catalytic activity/Vol] 12 U/L Normal 8-34 [facility] Comment on above: Order Comment: Speci men Type: BLOOD SPECIMENOrdering Facility: [facility] Address: [address] [place] [address] Result Comment: Resu lts may be falsely depressed after the administration of Sulfasalazine and/or Sulfapyridine. Performed By: #### 1 9123-9, 53693-8 ####[facility] [id number] [place] [address] [place] Bilirubin [Mass/Vol] 1.2 mg/dL High 0.2-1.0 [facility] Comment on above: Order Comment: Speci men Type: BLOOD SPECIMENOrdering Facility: [facility] Address: [address] [place] [address] Performed By: #### 1 9123-9, 14584-0 ####[facility]IA [id number] [place] [id number] [place] Calcium [Mass/Vol] 9.6 mg/dL Normal 8.5-10.5 [facility] Comment on above: Order Comment: Speci men Type: BLOOD SPECIMENOrdering Facility: [facility] Address: [address] [place] [address] Performed By: #### 1 9123-9, 70221-0 ####[facility]ORY[facility]IA [id number] [place] [address] [place] Chloride [Moles/Vol] 92 mmol/L Low 98-107 [facility] Comment on above: Order Comment: Speci men Type: BLOOD SPECIMENOrdering Facility: [facility] Address: [address] [place] [address] Performed By: #### 1 239, ####[facility]ORYCLIA [id number] [place] [address] [place] CO2 [Moles/Vol] 31 mmol/L Normal 21-32 [facility] Comment on above: Order Comment: Speci men Type: BLOOD SPECIMENOrdering Facility: [facility] Address: [address] [place] [address] Performed By: #### 1 9123-9, ####[facility]ORYCLIA [id number] [place] [address] [place] Creatinine [Mass/Vol] 1.04 mg/dL High 0.51-0.95 [facility] Comment on above: Order Comment: Speci men Type: BLOOD SPECIMENOrdering Facility: [facility] Address: [address] [place] [address] Result Comment: Marissa ents receiving either N-Acetylcysteine (NAC) or Metamizole prior to venipuncture, may have falsely depressed results. Performed By: #### 1 9123-9, ####[facility]ORYCLIA [id number] [place] [address] [place] Creatinine and Glomerular filtration rate.predicted panel (S/P/Bld) 69 mL/min/1.73m??? Normal >=60 [facility] Comment on above: Order Comment: Dora finch Type: BLOOD SPECIMENOrdering Facility: [facility] Address: [address] [place] [address] Result Comment: Zeny mated Glomerular Filtration Rate (eGFR) is calculated using the 2020 CKD-EPI creatinine equation. This equation utilizes serum creatinine, sex, and age as parameters. The creatinine assay has traceable calibration to isotope dilution-mass spectrometry. Refer to KDIGO guidelines for clinical interpretation. In patients with unstable renal function, e.g. those with acute kidney injury, the eGFR may not accurately reflect actual GFR. Performed By: #### 1 9123-9, 09334-7 ####[facility]ORY[facility]IA [id number] [place] [address] [place] Glucose [Mass/Vol] 101 mg/dL High 70-100 [facility] Comment on above: Order Comment: Dora finch Type: BLOOD SPECIMENOrdering Facility: [facility] Address: [address] [place] [address] Result Comment: The [place] [employer] (ADA) provides guidance for cutoff values for fasting glucose and random glucose. The ADA defines fasting as no caloric intake for at least 8 hours. Fasting plasma glucose results between 100 to 125 mg/dL indicate increased risk for diabetes (prediabetes). Fasting plasma glucose results greater than or equal to 126 mg/dL meet the criteria for diagnosis of diabetes. In the absence of unequivocal hyperglycemia, results should be confirmed by repeat testing. In a patient with classic symptoms of hyperglycemia or hyperglycemic crisis, random plasma glucose results greater than or equal to 200 mg/dL meet the criteria for diagnosis of diabetes. Reference: Standards of Medical Care in Diabetes 2016, [place] [employer]. Diabetes Care. 2016.39(Suppl 1). Results may be falsely elevated after the administration of Sulfapyridine. Results may be falsely depressed after the administration of Sulfasalazine. Performed By: #### 1 9123-9, 14169-5 ####[facility]ORY[facility]IA [id number] [place] [address] [place] Potassium [Moles/Vol] 3.4 mmol/L Low 3.5-5.1 [facility] Comment on above: Order Comment: Speci men Type: BLOOD SPECIMENOrdering Facility: [facility] Address: [address] [place] [address] Performed By: #### 1 9123-9, 39474-5 ####[facility]ORYCLIA [id number] [place] [id number] [place] Protein [Mass/Vol] 7.5 g/dL Normal 6.0-8.5 [facility] Comment on above: Order Comment: Speci men Type: BLOOD SPECIMENOrdering Facility: [facility] Address: [address] [place] [address] Performed By: #### 1 9123-9, 83342-6 ####[facility]ORYCLIA [id number] [place] [address] [place] Sodium [Moles/Vol] 133 mmol/L Low 136-145 [facility] Comment on above: Order Comment: Speci men Type: BLOOD SPECIMENOrdering Facility: [facility] Address: [address] [place] [address] Performed By: #### 1 9123-9, 14683-9 ####[facility]ORYCLIA [id number] [place] [address] [place] Urea nitrogen [Mass/Vol] 10 mg/dL Normal 7-26 [facility] Comment on above: Order Comment: Speci men Type: BLOOD SPECIMENOrdering Facility: [facility] Address: [address] [place], [place] [address] Performed By: #### 1 9123-9, 44666-3 ####[facility]ORYCLIA [id number] [place] [id number] [place] Magnesium SerPl-mCncon 10-24 Magnesium [Mass/Vol] 1.8 mg/dL Normal 1.6-2.6 [facility] Comment on above: Order Comment: Speci men Type: BLOOD SPECIMENOrdering Facility: [facility] Address: [address] [place] [address] Performed By: #### 1 9123-9, 89849-2 ####[facility]ORYCLIA [id number] [place] [address] [facility] [place] NUTRITIONon 10-24-2024 NUTRITION HNO ID: [id number] Author: LELIA MORALES RD Service: ? Author Type: Registered Dietitian Type: Nutrition Filed: 10/24/2024 14:01 Note Text: NUTRITION THERAPY PROGRESS NOTE SERVICE DATE: 10/24/2024 SERVICE TIME: Start Time: 1348 Nutrition Assessment: Recommended Malnutrition Diagnosis: Mild Protein-Calorie Malnutrition (10/20/24 1451 : Mounika Sarabia RD) Care Plan: Continue current diet Supplements: Powerade Zero Oral Rehydration Solution (BID) Monitor and Evaluation: Meet greater than 75% of estimated needs, Monitor fluid/electrolyte balance, Monitor labs, I/Os, vital signs, weight, Monitor bowel function Discharge Recommendations: Diet, Oral Supplements Diet: regular diet high in protein Oral Supplements: ORS of choice Interval History: Pt with continued good PO intakes, ~100% trays recorded. Reports drinking some of ordered Powerade. Pt reported to GI improving ostomy output, GI signed off. Flavor change and decrease to BID per Pt request. Encouraged ordering protein source at each mealtime to support healing of dry gangrene. - (+6.3L) since admit - hyponatremia, hypokalemia (recommend replacing), magnesium WNL GI Symptoms: None Ostomy Amount: Improved (decreasing output per GI 10/23 note) Intake History: Current Nutrition Intake: Greater than 75% estimated energy needs (Pt reports continued good PO intakes, ~100% trays recorded, drinking ordered Powerade 1-2x/d) Current Intake Over time: Greater than or equal to 5 days Dosing Weight: 87.3 kg (192 lb 7.4 oz) Dosing Weight Type: Admit weight Estimated kilocalorie needs: 1849 - 2049 Calorie Calculation Method: Cottle-St. Jeor (with activity factor) Estimated protein needs (grams): 120 - 130 Grams protein determined by: (>/= 2.0 g/kg IBW) Diet Orders (From admission, onward) Start Ordered 10/20/24 1530 DIET SUPPLEMENTS START NOW Question Answer Comment Supplement 1 POWERADE ORAL REHYDRATION SOLUTION MIXED HODGE Supplement 1 Frequency BREAKFAST Supplement 1 Frequency LUNCH Supplement 1 Frequency DINNER 10/20/24 1519 10/19/245 DIET REGULAR START NOW Question: Tray Precautions Answer: TRAY PRECAUTIONS NOT REQUIRED 10/19/242318 Anthropometrics: Height: 170.2 cm (5' 7) Weight: 86.4 kg (190 lb 7.6 oz) Body mass index is 29.83 kg/m?. Lines, Drains, and Airways Drain Duration Small Bowel Ostomy 08/22/24 LLQ 62 days MNT Billing: $ Routine Care : 1 unit Time Spent (mins): 4 SIGNATURE: Lelia Morales RD PATIENT NAME: Daly Evans DATE: October 24, 2024 TIME: 1:56 PM Normal [facility] CBC panel Auto (Bld)on 10-23 Erythrocyte distribution width (RBC) [Ratio] 14.8 % Normal 11.5-15.0 [facility] Comment on above: Order Comment: Speci men Type: BLOOD SPECIMENOrdering Facility: [facility] Address: [address] [place] [address] Performed By: #### 5 8410-2 ####[facility] LABORATORYCLIA [id number] [place] [address] [place] Hematocrit (Bld) [Volume fraction] 30.5 % Low 36.0-46.0 [facility] Comment on above: Order Comment: Speci men Type: BLOOD SPECIMENOrdering Facility: [facility] Address: [address] [id number] Performed By: #### 5 8410-2 ####[facility] LABORATORYCLIA [id number] [place] [address] [place] Hemoglobin (Bld) [Mass/Vol] 9.4 g/dL Low 11.5-15.5 [facility] Comment on above: Order Comment: Speci men Type: BLOOD SPECIMENOrdering Facility: [facility] Address: [address] [place] [address] Performed By: #### 5 8410-2 ####[facility]ORYCLIA [id number] [address] MCH (RBC) [Entitic mass] 24.0 pg Low 26.0-34.0 [facility] Comment on above: Order Comment: Speci men Type: BLOOD SPECIMENOrdering Facility: [facility] Address: [address] [place] [address] Performed By: #### 5 8410-2 ####[facility]ORYCLIA [id number] [address] MCHC (RBC) [Mass/Vol] 30.8 g/dL Normal 30.5-36.0 [facility] Comment on above: Order Comment: Speci men Type: BLOOD SPECIMENOrdering Facility: [facility] Address: [address] [place] [address] Performed By: #### 5 8410-2 ####[facility]ORYCLIA [id number] [address] MCV (RBC) [Entitic vol] 77.8 fL Low 80.0-100.0 [facility] Comment on above: Order Comment: Speci men Type: BLOOD SPECIMENOrdering Facility: [facility] Address: [address] [place] [address] Performed By: #### 5 8410-2 ####[facility]ORYCLIA [id number] [address] Nucleated RBC (Bld) [#/Vol] 10*3/uL Normal <0.01 [facility] Comment on above: Order Comment: Speci men Type: BLOOD SPECIMENOrdering Facility: [facility] Address: [address] [place] [address] Performed By: #### 5 8410-2 ####[facility]ORYCLIA [id number] [address] [place] Platelet mean volume (Bld) [Entitic vol] 8.6 fL Low 9.0-12.7 [facility] Comment on above: Order Comment: Speci men Type: BLOOD SPECIMENOrdering Facility: [facility] Address: [address] [place] [address] Performed By: #### 5 8410-2 ####[facility]ORYCLIA [id number] [place] [id number] [facility] Platelets (Bld) [#/Vol] 413 10*3/uL High 150-400 [facility] Comment on above: Order Comment: Speci men Type: BLOOD SPECIMENOrdering Facility: [facility] Address: [address] [place] [address] Performed By: #### 5 8410-2 ####[facility]ORYCLIA [id number] [place] [id number] [facility] RBC (Bld) [#/Vol] 3.92 10*6/uL Normal 3.90-5.20 [facility] Comment on above: Order Comment: Speci men Type: BLOOD SPECIMENOrdering Facility: [facility] Address: [address] [place] [address] Performed By: #### 5 8410-2 ####[facility]ORYCLIA [id number] [place] [id number] [facility] WBC (Bld) [#/Vol] 5.26 10*3/uL Normal 3.70-11.00 [facility] Comment on above: Order Comment: Speci men Type: BLOOD SPECIMENOrdering Facility: [facility] Address: [address] [place] [address] Performed By: #### 5 8410-2 ####[facility]ORYCLIA [id number] [place] [id number] [facility] CONSULTon 10-23-2024 CONSULT HNO ID: [id number] Author: YOHANA GARCIA III, DPM Service: Podiatry Author Type: Physician Type: Consults Filed: 10/23/2024 06:37 Note Text: PODIATRIC INITIAL CONSULT Patient Name: Daly Evans Account #: Data Unavailable Admission Date: 10/19/2024 Date of Evaluation: 10/23/2024 Time of Evaluation: 6:30 AM HISTORY OF PRESENT ILLNESS: This is a pleasant 39 year old female with past medical history significant for bipolar disorder generalized anxiety and panic disorder tobacco abuse and polysubstance abuse who originally presented to [facility] with severe abdominal pain and found to have ischemic bowel and limb ischemia. Patient required multiple bowel surgeries as well as bilateral below-knee popliteal artery cutdowns as well as thromboembolectomy of the anterior tibial artery posterior tibial artery and peroneal arteries bilateral. Subsequently had primary repair of right popliteal and tibial artery arteriotomies and 4 compartment fasciotomy bilateral. Patient relates gangrenous changes to bilateral feet since her vascular repair. She relates minimal pain as she states she has numbness to the feet. No x-rays have been done today. [employer]ocker [employer] Pol[employer] consult regarding management of bilateral foot gangrene. Originally presented to hospital with persistent stools. She had recent vascular follow-up at the end of August. PAST MEDICAL HISTORY Diagnosis Date Attempted suicide ([facility]) polysubstance Bipolar depression ([facility]) [facility] Camelia Whyte Gestational diabetes mellitus in ([facility]) Impaired fasting blood sugar 06/2015 a1c 5.7% at diagnosis Iron deficiency anemia Vitamin D deficiency PAST SURGICAL HISTORY Procedure Laterality Date CARPAL TUNNEL bilateral DELIVERY ONLY 08/05/2012 LAPAROSCOPY SURG CHOLECYSTECTOMY 07/01/2018 Cholecystectomy, lap PAST SURGICAL HISTORY OF 08/26/2024 INSERTION TUNNELED CV CATH PAST SURGICAL HISTORY OF 08/23/2024 REPAIR SIMPLE SUPERFICIAL WOUND ABDOMEN PAST SURGICAL HISTORY OF 08/22/2024 ENTETECTOMY RESECTION small intestine w/ enterostomy PAST SURGICAL HISTORY OF 08/20/2024 Embolectomy popliteal Current Facility-Administered Medications Medication Dose Route Frequency NaCl 0.9% iv flush bag 20 mL INTRAVENOUS PRN aluminum-magnesium hydroxide-simethicone 200-200-20 mg/5 mL 30 mL 30 mL ORAL DAILY PRN ondansetron 4 mg tab(s) (ZOFRAN) 4 mg ORAL q 6 H PRN Or ondansetron (PF) 4 mg injection (ZOFRAN) 4 mg INTRAVENOUS q 6 H PRN polyethylene glycol 3350 17 g packet 17 g ORAL DAILY PRN acetaminophen 650 mg tab(s) (TYLENOL) 650 mg ORAL q 6 H PRN melatonin 3 mg tab(s) 3 mg ORAL DAILY (8 PM) aspirin 81 mg chewable tab(s) 81 mg ORAL DAILY atorvastatin 40 mg tab(s) (LIPITOR) 40 mg ORAL DAILY gabapentin 600 mg cap(s) (NEURONTIN) 600 mg ORAL q 8 H magnesium oxide 400 mg tab(s) (MAG-OX) 400 mg ORAL DAILY OLANZapine 20 mg tab(s) (ZYPREXA) 20 mg ORAL AT BEDTIME enoxaparin 90 mg injection (LOVENOX) 90 mg SUBCUTANEOUS BID pantoprazole DR 40 mg tab(s) (PROTONIX) 40 mg ORAL BID AC (0600/1600) escitalopram oxalate 20 mg tab(s) (LEXAPRO) 20 mg ORAL DAILY loperamide 2 mg cap(s) (IMODIUM) 2 mg ORAL QID Allergies: ALLERGIES Allergen Reactions Hydrocodone-Acetami* GI Upset hyperactivity FAMILY HISTORY Problem Relation Age of Onset Lipids Mother Headache Mother migraine other (back pain) Mother Hypertension Father Heart Father atrial fib Thyroid Father other (aortic aneurysm) Father Psychiatry Brother Diabetes Maternal Grandmother Diabetes Maternal Uncle Diabetes Maternal Uncle Diabetes Maternal Uncle Diabetes Maternal Uncle Aneurysm No Family History Social History Tobacco Use Smoking status: Former Current packs/day: 0.00 Types: Cigarettes Quit date: 04/13/2015 Years since quittin.5 Smokeless tobacco: Never Tobacco comments: Pateint only uses the Vape She doesnt smoke nicotine Patient quit smoking 08/20/2024 Vaping Use Vaping status: Former Quit date: 09/17/2024 Substance Use Topics Alcohol use: Not Currently Comment: occassional Drug use: No REVIEW OF SYSTEMS: Denies fevers chills nausea vomiting chest pain shortness of breath calf or thigh pain. RADIOGRAPHS: X-rays ordered and pending OTHER STUDIES: None LABS: CBC: WBC 5.26 10/23/2024 Hemoglobin 9.4 10/23/2024 Hematocrit 30.5 10/23/2024 Platelet Count 413 10/23/2024 CMP: Sodium 137 10/23/2024 Potassium 3.4 10/23/2024 BUN 7 10/23/2024 Creatinine 0.90 10/23/2024 Glucose 98 10/23/2024 COAGS: APTT 69.5 08/23/2024 INR 1.1 08/29/2024 URINALYSIS: Ketones, Urine Negative 08/30/2024 Nitrites Negative 08/30/2024 Specific [place], Ur 1.016 08/30/2024 Protein, Urine 1+ 08/30/2024 Leukest Negative 08/30/2024 WBC, Urine 0-5 /HPF 08/30/2024 Bacteria Negative 08/30/2024 SED RATE/CRP: Sed Rate, Roberren 2 02/05/2022 CRP 10.4 09/03/2024 CRP 20.2 08/31/2024 CRP 18.1 (more content not included)... [facility] CONSULT PROGon 10-23-2024 CONSULT PROG HNO ID: [id number] Author: ALOK DONIS MD Service: Gastroenterology Author Type: Nurse Practitioner Type: Consult Progress Note Filed: 10/23/2024 14:03 Note Text: Attestation signed by Alok Donis MD at 10/23/2024 2:03 PM ATTENDING PHYSICIAN NOTE OF PERSONAL INVOLVEMENT IN CARE: I have personally performed a face to face assessment of the patient and have reviewed the ISHAAN note. I performed a substantive portion of the visit including all aspects of the following. My lagos findings include: Chart reviewed. Her symptoms are improving. Output is decreasing. No blood in the ostomy. Negative infectious workup noted. Tolerating diet very well. Use Imodium 4 mg 3 times daily. Follow-up with her regular GI as outpatient. Will sign off for now, please consult if needed Rest as outlined below by ALARM SIGNALER Other additions or changes: None Signature: Alok Donis MD Date: 10/23/2024 GASTROENTEROLOGY PROGRESS NOTES PATIENT NAME: Daly Evans SERVICE DATE: 10/23/2024 SERVICE TIME: 11:56 AM CONSULTING SERVICE: GI HPI interval summary No acute events reported overnight SUBJECTIVE Patient laying in bed, no acute distress. Denies any abdominal pain, nausea, or vomiting. States slight decrease in ostomy output. OBJECTIVE BP 96/59 Pulse 91 Temp (Src) 98.1 (Oral) Resp 17 Ht 5' 7 (1.70m) Wt 192 lb 7.4 oz (87.3kg) SpO2 98% LMP 08/29/2024 BMI 30.14 kg/(m2). O2 Therapy: Room Air IV infusion medications: Intake/Output Summary (Last 24 hours) at 10/23/2024 1156 Last data filed at 10/22/2024 2108 Gross per 24 hour Intake 1746.4 ml Output 900 ml Net 846.4 ml PHYSICAL EXAM: General: Awake and alert, NAD. Mouth: Mucous membranes moist. Neck: Supple, trachea midline. HEENT: Atraumatic, sclera nonicteric. Respiratory: Even, non-labored. Heart: Regular rate. Abdomen: Soft, non-tender, no distention, jejunostomy light brown liquid output Extremities: trace BLE Neurological: Grossly normal. Skin: Warm and dry. DATA: Diagnostic tests reviewed for today's visit: Recent Labs 10/23/2437 10/22/24 0523 10/21/24 0948 WBC 5.26 5.87 5.24 HB 9.4* 8.8* 9.3* HCT 30.5* 28.0* 31.0* PLT 413* 396 441* NA 137 136 135* K 3.4* 3.2* 2.8* CHLOR 98 98 100 CO2 29 30 26 BUN 7 9 9 CREAT 0.90 0.95 0.98* GLUC 98 83 140* CA 9.1 8.9 9.1 MG 1.9 1.3* 1.4* Recent Labs 10/23/24 0537 10/22/24 0523 10/21/24 0948 TPROT 6.9 6.4 6.7 ALB 2.8* 2.6* 2.8* ALT 15 15 19 AST 14 14 13 ALKPHOS 118* 110 117 TBILI 0.9 0.9 0.9 Patient Active Hospital Problem List: 1. Intractable diarrhea 2. Malnutrition of mild degree (HCC) POA: Yes ASSESSMENT/PLAN-in collaboration with Dr. Donis #High output jejunostomy #SBS -BP soft, afebrile, SpO2 stable on RA -No abdominal pain, nausea, or vomiting -Stool studies/C. Dif negative -Interval improvement with reduction in ostomy output over last 48 hours 2,000 cc --> 1,400 cc --> 1,300cc, goal remains 800 ccs -Imodium 4 times daily -Appreciate nutritional team recommendations -Avoid hyper and hypotonic fluids such as soda/coffee/or tea, consider drinking more oral rehydrating solutions such as Gatorade -Monitor electrolytes, kidney function closely given high rate of volume loss from jejunostomy -Continue supportive care per primary team -Outpatient GI follow-up, referral line [phone] -Please call with questions, nothing further to add from a GI standpoint at this time GI will sign off at this time. Please don't hesitate to call us back. Please contact on-call GI staff physician with any questions or concerns. SIGNATURE: Rakesh Davis APRN.MANAGER CLINICAL RESEARCH DATE: October 23, 2024 TIME: 11:56 AM (Some elements copied from my note, dated 10/22, which have been reviewed and updated where appropriate. All reflect current medical decision making from today, 10/23.) Normal [facility] Comprehensive metabolic 2000 panelon 10-23-2024 Albumin [Mass/Vol] 2.8 g/dL Low 3.2-5.0 [facility] Comment on above: Order Comment: Dora finch Type: BLOOD SPECIMENOrdering Facility: [facility] Address: [address] [place] [address] Performed By: #### 1 9123-9, 90991-6 ####[facility]ATORYCLIA [id number] [place] [address] [place] ALP [Catalytic activity/Vol] 118 U/L High 45-117 [facility] Comment on above: Order Comment: Dora finch Type: BLOOD SPECIMENOrdering Facility: [facility] Address: [address] [place] [address] Performed By: #### 1 6123-9, 37624-0 ####[facility]ATORYCLIA [id number] [place] [id number] [place] ALT [Catalytic activity/Vol] 15 U/L Normal 13-61 [facility] Comment on above: Order Comment: Speci men Type: BLOOD SPECIMENOrdering Facility: [facility] Address: [address] [place] [address] Result Comment: Resu lts may be falsely depressed after the administration of Sulfasalazine and/or Sulfapyridine. Performed By: #### 1 9123-9, 85693-3 ####[facility]ORYCLIA [id number] [place] [address] [place] Anion gap [Moles/Vol] 10 mmol/L Normal 5-16 [facility] Comment on above: Order Comment: Speci men Type: BLOOD SPECIMENOrdering Facility: [facility] Address: [address] [place] [address] Performed By: #### 1 91239, ####[facility]ORYCLIA [id number] [place] [address] [place] AST [Catalytic activity/Vol] 14 U/L Normal 8-34 [facility] Comment on above: Order Comment: Speci men Type: BLOOD SPECIMENOrdering Facility: [facility] Address: [address] [place] [address] Result Comment: Resu lts may be falsely depressed after the administration of Sulfasalazine and/or Sulfapyridine. Performed By: #### 1 9123-9, 60250-4 ####[facility]ORYCLIA [id number] [place] [id number] [place] Bilirubin [Mass/Vol] 0.9 mg/dL Normal 0.2-1.0 [facility] Comment on above: Order Comment: Speci men Type: BLOOD SPECIMENOrdering Facility: [facility] Address: [address] [place] [address] Performed By: #### 1 9123-9, 00513-3 ####[facility]ATORYCLIA [id number] [place] [address] [place] Calcium [Mass/Vol] 9.1 mg/dL Normal 8.5-10.5 [facility] Comment on above: Order Comment: Speci men Type: BLOOD SPECIMENOrdering Facility: [facility] Address: [address] [place] [address] Performed By: #### 1 9123-9, 47063-1 ####[facility]ORYCLIA [id number] [place] [address] [place] Chloride [Moles/Vol] 98 mmol/L Normal 98-107 [facility] Comment on above: Order Comment: Speci men Type: BLOOD SPECIMENOrdering Facility: [facility] Address: [address] [place] [address] Performed By: #### 1 9123-9, 07274-9 ####[facility]ORYCLIA [id number] [place] [address] [place] CO2 [Moles/Vol] 29 mmol/L Normal 21-32 [facility] Comment on above: Order Comment: Speci men Type: BLOOD SPECIMENOrdering Facility: [facility] Address: [address] [place] [address] Performed By: #### 1 9123-9, 63897-4 ####[facility]ORYCLIA [id number] [place] [address] [place] Creatinine [Mass/Vol] 0.90 mg/dL Normal 0.51-0.95 [facility] Comment on above: Order Comment: Speci men Type: BLOOD SPECIMENOrdering Facility: [facility] Address: [address] [place] [address] Result Comment: Marissa ents receiving either N-Acetylcysteine (NAC) or Metamizole prior to venipuncture, may have falsely depressed results. Performed By: #### 1 9123-9, 96888-3 ####[facility]ORYCLIA [id number] [place] [address] [place] Creatinine and Glomerular filtration rate.predicted panel (S/P/Bld) 83 mL/min/1.73m??? Normal >=60 [facility] Comment on above: Order Comment: Dora finch Type: BLOOD SPECIMENOrdering Facility: [facility] Address: [address] [place] [address] Result Comment: Zeny mated Glomerular Filtration Rate (eGFR) is calculated using the 2020 CKD-EPI creatinine equation. This equation utilizes serum creatinine, sex, and age as parameters. The creatinine assay has traceable calibration to isotope dilution-mass spectrometry. Refer to KDIGO guidelines for clinical interpretation. In patients with unstable renal function, e.g. those with acute kidney injury, the eGFR may not accurately reflect actual GFR. Performed By: #### 1 9123-9, 23466-2 ####[facility]ORYCLIA [id number] [place] [id number] [place] Glucose [Mass/Vol] 98 mg/dL Normal 70-100 [facility] Comment on above: Order Comment: Dora finch Type: BLOOD SPECIMENOrdering Facility: [facility] Address: [address] [place] [address] Result Comment: The [place] [employer] (ADA) provides guidance for cutoff values for fasting glucose and random glucose. The ADA defines fasting as no caloric intake for at least 8 hours. Fasting plasma glucose results between 100 to 125 mg/dL indicate increased risk for diabetes (prediabetes). Fasting plasma glucose results greater than or equal to 126 mg/dL meet the criteria for diagnosis of diabetes. In the absence of unequivocal hyperglycemia, results should be confirmed by repeat testing. In a patient with classic symptoms of hyperglycemia or hyperglycemic crisis, random plasma glucose results greater than or equal to 200 mg/dL meet the criteria for diagnosis of diabetes. Reference: Standards of Medical Care in Diabetes 2016, [place] [employer]. Diabetes Care. 2016.39(Suppl 1). Results may be falsely elevated after the administration of Sulfapyridine. Results may be falsely depressed after the administration of Sulfasalazine. Performed By: #### 1 9123-9, 81183-6 ####[facility]ORYCLIA [id number] [place] [id number] [place] Potassium [Moles/Vol] 3.4 mmol/L Low 3.5-5.1 [facility] Comment on above: Order Comment: Speci men Type: BLOOD SPECIMENOrdering Facility: [facility] Address: [address] [place], [place] [address] Performed By: #### 1 9123-9, ####[facility]ORYCLIA [id number] [place] [id number] [place] Protein [Mass/Vol] 6.9 g/dL Normal 6.0-8.5 [facility] Comment on above: Order Comment: Speci men Type: BLOOD SPECIMENOrdering Facility: [facility] Address: [address] [place] [address] Performed By: #### 1 9123-9, ####[facility]ORYCLIA [id number] [place] [address] [place] Sodium [Moles/Vol] 137 mmol/L Normal 136-145 [facility] Comment on above: Order Comment: Speci men Type: BLOOD SPECIMENOrdering Facility: [facility] Address: [address] [place] [address] Performed By: #### 1 9123-9, ####[facility]ORYCLIA [id number] [place] [address] [place] Urea nitrogen [Mass/Vol] 7 mg/dL Normal 7-26 [facility] Comment on above: Order Comment: Speci men Type: BLOOD SPECIMENOrdering Facility: [facility] Address: [address] [place] [address] Performed By: #### 1 9123-9, ####[facility]ORYCLIA [id number] [place] [id number] [place] Magnesium SerPl-mCncon 10-23 Magnesium [Mass/Vol] 1.9 mg/dL Normal 1.6-2.6 [facility] Comment on above: Order Comment: Speci men Type: BLOOD SPECIMENOrdering Facility: [facility] Address: [address] [place] [address] Performed By: #### 1 9123-9, 74191-2 ####[facility]ATORYCLIA [id number] [place] [address] [place] XR FOOT 3V AP/LAT/OBL BILon 10-23-2024 XR FOOT 3V AP/LAT/OBL RONY * * *Final Report* * * DATE OF EXAM: Oct 23 2024 9:06AM RHX [id number] - XR FOOT 3V AP/LAT/OBL RONY / PROCEDURE REASON: Other * * * * Physician Interpretation * * * * XR FOOT 3V AP/LAT/OBL RONY Ordering Physician: YOHANA GARCIA Clinical Statement: Gangrene FINDINGS: Right foot: No fracture or dislocation. Normal alignment. Soft tissue swelling. No soft tissue gas or evidence of osteomyelitis. Posterior calcaneal enthesopathy. Left foot: No fracture or dislocation. Normal alignment. Soft tissue swelling distally. No soft tissue gas or evidence of osteomyelitis. Posterior calcaneal enthesopathy. IMPRESSION: No imaging evidence of osteomyelitis. Mild distal soft tissue swelling. Ships Or Barges Loader: PSCB Transcribe Date/Time: Oct 23 2024 4:00P Dictated by : HOMA EDMONDSON MD This examination was interpreted and the report reviewed and electronically signed by: HOMA EDMONDSON MD on Oct 23 2024 4:03PM EST [id number] Normal [facility] ALLIED HEALTHon 10-22-2024 ALLIED HEALTH HNO ID: [id number] Author: STEFANY CALVERT RN Service: Wound/Ostomy Author Type: Registered Nurse Type: Allied Health Filed: 10/22/2024 10:41 Note Text: Summary: Ostomy Nurse Visit Ostomy Nurse Consult Reason for Consult: Leaking High Output Ostomy. Pt has established end-loop jejunostomy Ostomy Nurse Removed Leaking Pouch Cleansed With Plain Water And Dried. Stoma Measured 38mm - Cut Wafer To Within 1/8 Of Stoma Small Barrier Ring Applied Stoma Bag Applied And Attached To Drainage Bag Barrier [employer] Director Strips Applied To Edges Patient Educated On Need To Watch Drainage Tubing To Ensure Its Draining And Pouch Doesn't Get Too Full And Starts Leaking. Assessment Stoma Type: End-loop jejunostomy Size/Diameter: 38mm Location: LLQ Protrusion: Flush, Retracted, Etc. Mucosal condition and color: Basin Red Moist Mucocutaneous junction: Intact Character of output: Liquid Yellow Brown Emptying frequency per day: per floor nursing Current pouching system: Coloplast 2pc High Output #74363 Pouch attached to drainage bag Coloplast #49971 Flat Wafer [place] #8815 Small Barrier Ring Wear Time Goal: 3-4 days Coloplast 2pc Colostomy Pouch # 94437 Left In Room When Stool Thickens Too Much To Use High Output Bag. If additional ostomy supplies are needed, please call [facility] ([phone]) for above mentioned supplies. If supplies are unavailable in [facility] [employer], please secure chat [facility] or call extension [phone] to request more supplies. Normal [facility] CBC panel Auto (Bld)on 10-22 Erythrocyte distribution width (RBC) [Ratio] 14.6 % Normal 11.5-15.0 [facility] Comment on above: Order Comment: Dora finch Type: BLOOD SPECIMEN Ordering Facility: [facility] Address: [address] [place] [address] Performed By: #### 4 091-5 #### [facility] CLIA [id number] [address] [place] [address] [place] Hematocrit (Bld) [Volume fraction] 28.0 % Low 36.0-46.0 [facility] Comment on above: Order Comment: Dora finch Type: BLOOD SPECIMEN Ordering Facility: [facility] Address: [address] [place] [address] Performed By: #### 4 091-5 #### [facility] CLIA [id number] [address] [place] [address] [place] Hemoglobin (Bld) [Mass/Vol] 8.8 g/dL Low 11.5-15.5 [facility] Comment on above: Order Comment: Speci men Type: BLOOD SPECIMEN Ordering Facility: [facility] Address: [address] [place] [address] Performed By: #### 4 091-5 #### [facility] CLIA [id number] [address] [place] [address] [place] MCH (RBC) [Entitic mass] 24.6 pg Low 26.0-34.0 [facility] Comment on above: Order Comment: Speci men Type: BLOOD SPECIMEN Ordering Facility: [facility] Address: [address] [place] [address] Performed By: #### 4 091-5 #### [facility] CLIA [id number] [address] [place] [place] [address] [place] MCHC (RBC) [Mass/Vol] 31.4 g/dL Normal 30.5-36.0 [facility] Comment on above: Order Comment: Speci men Type: BLOOD SPECIMEN Ordering Facility: [facility] Address: [address] [place] [address] Performed By: #### 4 091-5 #### [facility] CLIA [id number] [address] [place] [address] [place] MCV (RBC) [Entitic vol] 78.4 fL Low 80.0-100.0 [facility] Comment on above: Order Comment: Speci men Type: BLOOD SPECIMEN Ordering Facility: [facility] Address: [address] [place] [address] Performed By: #### 4 091-5 #### [facility] CLIA [id number] [address] [place] [address] [place] Nucleated RBC (Bld) [#/Vol] 10*3/uL Normal <0.01 [facility] Comment on above: Order Comment: Speci men Type: BLOOD SPECIMEN Ordering Facility: [facility] Address: [facility] [place] [id number] Performed By: #### 4 091-5 #### [facility] CLIA [id number] [address] [place], [place] [id number] [place] Platelet mean volume (Bld) [Entitic vol] 8.7 fL Low 9.0-12.7 [facility] Comment on above: Order Comment: Speci men Type: BLOOD SPECIMEN Ordering Facility: [facility] Address: [address] [place] [address] Performed By: #### 4 091-5 #### [facility] CLIA [id number] [address] [place] [address] [place] Platelets (Bld) [#/Vol] 396 10*3/uL Normal 150-400 [facility] Comment on above: Order Comment: Speci men Type: BLOOD SPECIMEN Ordering Facility: [facility] Address: [address] [place] [address] Performed By: #### 4 091-5 #### [facility] CLIA [id number] [address] [place] [address] [place] RBC (Bld) [#/Vol] 3.57 10*6/uL Low 3.90-5.20 [facility] Comment on above: Order Comment: Speci men Type: BLOOD SPECIMEN Ordering Facility: [facility] Address: [address] [place] [address] Performed By: #### 4 091-5 #### [facility] CLIA [id number] [address] [place] [address] [place] WBC (Bld) [#/Vol] 5.87 10*3/uL Normal 3.70-11.00 [facility] Comment on above: Order Comment: Speci men Type: BLOOD SPECIMEN Ordering Facility: [facility] Address: [address] [place] [address] Performed By: #### 4 091-5 #### [facility] CLIA [id number] [facility] [place] [address] [place] CONSULT PROGon 10-22-2024 CONSULT PROG HNO ID: [id number] Author: TUNG JENNINGS MD Service: Gastroenterology Author Type: Nurse Practitioner Type: Consult Progress Note Filed: 10/22/2024 16:50 Note Text: Attestation signed by Tung Jennings MD at 10/22/2024 4:50 PM Attending Note I have personally performed a face to face assessment of the patient and have reviewed the ISHAAN note. I performed a substantive portion of the visit including all aspects of the following. My lagos findings include: Improved ostomy output on Imodium, over the last 24 hours was 1400. Plan to increase Imodium to 4 times a day Continue with oral hydration And diet per nutrition and diet per nutrition Inpatient GI will follow Other additions or changes: None Signature: Tung Jennings MD Date: 10/22/2024 Time: 4:49 PM GASTROENTEROLOGY PROGRESS NOTES PATIENT NAME: Daly Evans SERVICE DATE: 10/22/2024 SERVICE TIME: 12:32 PM CONSULTING SERVICE: GI HPI interval summary No acute events reported overnight SUBJECTIVE Patient laying in bed, no acute distress, feeling well, not having any abdominal pain, nausea or vomiting. States reduced stoma output overnight OBJECTIVE BP 97/59 Pulse 80 Temp (Src) 98.4 (Oral) Resp 18 Ht 5' 7 (1.70m) Wt 192 lb 7.4 oz (87.3kg) SpO2 98% LMP 08/29/2024 BMI 30.14 kg/(m2). O2 Therapy: Room Air IV infusion medications: lactated ringers: Last Rate: 150 mL/hr (10/21/24 1104) Intake/Output Summary (Last 24 hours) at 10/22/2024 1232 Last data filed at 10/22/2024 0952 Gross per 24 hour Intake 2803 ml Output 1200 ml Net 1603 ml PHYSICAL EXAM: General: Awake and alert, NAD. Mouth: Mucous membranes moist. Neck: Supple, trachea midline. HEENT: Atraumatic, sclera nonicteric. Respiratory: Even, non-labored. Heart: Regular rate. Abdomen: Soft, non-tender, no distention Extremities: trace BLE Neurological: Grossly normal. Skin: Warm and dry. DATA: Diagnostic tests reviewed for today's visit: Recent Labs 10/22/24 0510/21/24 0948 10/20/24 0633 WBC 5.87 5.24 8.42 HB 8.8* 9.3* 10.3* HCT 28.0* 31.0* 32.1* PLT 396 441* 485* NA 136 135* 131* K 3.2* 2.8* 3.3* CHLOR 98 100 100 CO2 30 26 21 BUN 9 9 13 CREAT 0.95 0.98* 1.17* GLUC 83 140* 118* CA 8.9 9.1 9.2 MG 1.3* 1.4* 1.7 Recent Labs 10/22/24 0523 10/21/24 0948 TPROT 6.4 6.7 ALB 2.6* 2.8* ALT 15 19 AST 14 13 ALKPHOS 110 117 TBILI 0.9 0.9 Patient Active Hospital Problem List: 1. Intractable diarrhea 2. Malnutrition of mild degree (HCC) POA: Yes ASSESSMENT/PLAN-in collaboration with Dr. Jennings #High output jejunostomy #SBS -BP soft, afebrile, SpO2 stable on RA -No abdominal pain, nausea, or vomiting -Stool studies/C. Dif negative -Interval improvement with reduction in ostomy output over last 24 hours approx ~1,400cc down from 2,000cc goal of 800 ccs -Increase imodium to 4 times daily -Appreciate nutritional team recommendations -Avoid hyper and hypotonic fluids such as soda/coffee/or tea, consider drinking more oral rehydrating solutions such as Gatorade -Monitor electrolytes, kidney function closely given high rate of volume loss from jejunostomy -Continue supportive care per primary team -GI will follow SIGNATURE: Rakesh Davis APRN.CNP DATE: October 22, 2024 TIME: 12:32 PM (Some elements copied from my colleague's note, dated 10/21, which have been reviewed and updated where appropriate. All reflect current medical decision making from today, 10/22.) Normal [facility] Comprehensive metabolic 2000 panelon 10-22-2024 Albumin [Mass/Vol] 2.6 g/dL Low 3.2-5.0 [facility] Comment on above: Order Comment: Dora finch Type: BLOOD SPECIMEN Ordering Facility: [facility] Address: [address] [place] [address] Performed By: #### 4 091-5 #### [facility] CLIA [id number] [address] [place] [address] [place] ALP [Catalytic activity/Vol] 110 U/L Normal 45-117 [facility] Comment on above: Order Comment: Dora finch Type: BLOOD SPECIMEN Ordering Facility: [facility] Address: [address] [place] [address] Performed By: #### 4 091-5 #### [facility] CLIA [id number] [address] [place] [address] [place] ALT [Catalytic activity/Vol] 15 U/L Normal 13-61 [facility] Comment on above: Order Comment: Dora finch Type: BLOOD SPECIMEN Ordering Facility: [facility] Address: [address] [place] [address] Result Comment: Resu lts may be falsely depressed after the administration of Sulfasalazine and/or Sulfapyridine. Performed By: #### 4 091-5 #### [facility] CLIA [id number] [address] [place] [address] [place] Anion gap [Moles/Vol] 8 mmol/L Normal 5-16 [facility] Comment on above: Order Comment: Speci men Type: BLOOD SPECIMEN Ordering Facility: [facility] Address: [address] [place] [address] Performed By: #### 4 091-5 #### [facility] CLIA [id number] [address] [place] [address] [place] AST [Catalytic activity/Vol] 14 U/L Normal 8-34 [facility] Comment on above: Order Comment: Speci men Type: BLOOD SPECIMEN Ordering Facility: [facility] Address: [address] [place] [address] Result Comment: Resu lts may be falsely depressed after the administration of Sulfasalazine and/or Sulfapyridine. Performed By: #### 4 091-5 #### [facility] CLIA [id number] [address] [place] [address] [place] Bilirubin [Mass/Vol] 0.9 mg/dL Normal 0.2-1.0 [facility] Comment on above: Order Comment: Speci men Type: BLOOD SPECIMEN Ordering Facility: [facility] Address: [address] [place] [address] Performed By: #### 4 091-5 #### [facility] CLIA [id number] [address] [place] [address] [place] Calcium [Mass/Vol] 8.9 mg/dL Normal 8.5-10.5 [facility] Comment on above: Order Comment: Speci men Type: BLOOD SPECIMEN Ordering Facility: [facility] Address: [address] [place] [address] Performed By: #### 4 091-5 #### [facility] CLIA [id number] [address] [place] [address] [place] Chloride [Moles/Vol] 98 mmol/L Normal 98-107 [facility] Comment on above: Order Comment: Speci men Type: BLOOD SPECIMEN Ordering Facility: [facility] Address: [address] [place] [address] Performed By: #### 4 091-5 #### [facility] CLIA [id number] [address] [place] [address] [place] CO2 [Moles/Vol] 30 mmol/L Normal 21-32 [facility] Comment on above: Order Comment: Dora finch Type: BLOOD SPECIMEN Ordering Facility: [facility] Address: [address] [place] [address] Performed By: #### 4 091-5 #### [facility] CLIA [id number] [address] [place] [address] [place] Creatinine [Mass/Vol] 0.95 mg/dL Normal 0.51-0.95 [facility] Comment on above: Order Comment: Dora finch Type: BLOOD SPECIMEN Ordering Facility: [facility] Address: [address] [place] [address] Result Comment: Marissa ents receiving either N-Acetylcysteine (NAC) or Metamizole prior to venipuncture, may have falsely depressed results. Performed By: #### 4 091-5 #### [facility] CLIA [id number] [address] [place] [address] Creatinine and Glomerular filtration rate.predicted panel (S/P/Bld) 77 mL/min/1.73m??? Normal >=60 [facility] Comment on above: Order Comment: Dora finch Type: BLOOD SPECIMEN Ordering Facility: [facility] Address: [address] [place] [address] Result Comment: Zeny mated Glomerular Filtration Rate (eGFR) is calculated using the 2020 CKD-EPI creatinine equation. This equation utilizes serum creatinine, sex, and age as parameters. The creatinine assay has traceable calibration to isotope dilution-mass spectrometry. Refer to KDIGO guidelines for clinical interpretation. In patients with unstable renal function, e.g. those with acute kidney injury, the eGFR may not accurately reflect actual GFR. Performed By: #### 4 091-5 #### [facility] CLIA [id number] [address] [place] [address] [place] Glucose [Mass/Vol] 83 mg/dL Normal 70-100 [facility] Comment on above: Order Comment: Dora finch Type: BLOOD SPECIMEN Ordering Facility: [facility] Address: [address] [place] [address] Result Comment: The [place] [employer] (ADA) provides guidance for cutoff values for fasting glucose and random glucose. The ADA defines fasting as no caloric intake for at least 8 hours. Fasting plasma glucose results between 100 to 125 mg/dL indicate increased risk for diabetes (prediabetes). Fasting plasma glucose results greater than or equal to 126 mg/dL meet the criteria for diagnosis of diabetes. In the absence of unequivocal hyperglycemia, results should be confirmed by repeat testing. In a patient with classic symptoms of hyperglycemia or hyperglycemic crisis, random plasma glucose results greater than or equal to 200 mg/dL meet the criteria for diagnosis of diabetes. Reference: Standards of Medical Care in Diabetes 2016, [place] [employer]. Diabetes Care. 2016.39(Suppl 1). Results may be falsely elevated after the administration of Sulfapyridine. Results may be falsely depressed after the administration of Sulfasalazine. Performed By: #### 4 091-5 #### [facility] CLIA [id number] [address] [place] [address] [place] Potassium [Moles/Vol] 3.2 mmol/L Low 3.5-5.1 [facility] Comment on above: Order Comment: Speci men Type: BLOOD SPECIMEN Ordering Facility: [facility] Address: [address] [place] [address] Performed By: #### 4 091-5 #### [facility] CLIA [id number] [address] [place] [address] [place] Protein [Mass/Vol] 6.4 g/dL Normal 6.0-8.5 [facility] Comment on above: Order Comment: Speci men Type: BLOOD SPECIMEN Ordering Facility: [facility] Address: [address] [place] [address] Performed By: #### 4 091-5 #### [facility] CLIA [id number] [address] [place] [address] [place] Sodium [Moles/Vol] 136 mmol/L Normal 136-145 [facility] Comment on above: Order Comment: Speci men Type: BLOOD SPECIMEN Ordering Facility: [facility] Address: [address] [place] [address] Performed By: #### 4 091-5 #### [facility] CLIA [id number] [address] [place] [address] [place] Urea nitrogen [Mass/Vol] 9 mg/dL Normal 01-19 [facility] Comment on above: Order Comment: Speci men Type: BLOOD SPECIMEN Ordering Facility: [facility] Address: [address] [place] [address] Performed By: #### 4 091-5 #### [facility] CLIA [id number] [address] [place] [address] [place] Gastrointestinal pathogens p bowen LAUREANO+probe (Stl)on 10-22-2024 ADENOVIRUS F 40/41 DNA Not detected Normal Not Detected [facility] Comment on above: Order Comment: Speci men Type: STOOL SPECIMENOrdering Facility: [facility] Address: [address] [place] [address] Performed By: #### 7 9381-0 ####[facility] [id number] [place] [address] [place] ASTROVIRUS RNA Not detected Normal Not Detected [facility] Comment on above: Order Comment: Speci men Type: STOOL SPECIMENOrdering Facility: [facility] Address: [address] [place] [address] Performed By: #### 7 9381-0 ####[facility] [id number] [place] [address] [place] C. cayetanensis DNA LAUREANO+probe Ql (Unsp spec) Not detected Normal Not Detected [facility] Comment on above: Order Comment: Speci men Type: STOOL SPECIMENOrdering Facility: [facility] Address: [address] [place] [address] Performed By: #### 7 9381-0 ####[facility] [id number] [place] [address] [place] Campylobacter sp DNA.diarrheagenic LAUREANO+probe Ql (Stl) Not detected Normal Not Detected [facility] Comment on above: Order Comment: Speci men Type: STOOL SPECIMENOrdering Facility: [facility] Address: [address] [place] [address] Performed By: #### 7 9381-0 ####[facility] [id number] [place] [address] [place] Cryptosporidium sp DNA LAUREANO+probe Ql (Unsp spec) Not detected Normal Not Detected [facility] Comment on above: Order Comment: Speci men Type: STOOL SPECIMENOrdering Facility: [facility] Address: [address] [place] [address] Performed By: #### 7 9381-0 ####[facility] [id number] [place] [address] [place] E. coli O157:H7 DNA LAUREANO+probe Ql (Unsp spec) Not applicable Normal Not detected [facility] Comment on above: Order Comment: Speci men Type: STOOL SPECIMENOrdering Facility: [facility] Address: [address] [place] [address] Performed By: #### 7 9381-0 ####[facility] [id number] [place] [address] [place] E. coli stx1+stx2 genes LAUREANO+probe Ql (Stl) Not detected Normal Not Detected [facility] Comment on above: Order Comment: Speci men Type: STOOL SPECIMENOrdering Facility: [facility] Address: [address] [place] [address] Performed By: #### 7 9381-0 ####[facility] [id number] [place] [address] [place] E. histolytica DNA LAUREANO+probe Ql (Unsp spec) Not detected Normal Not Detected [facility] Comment on above: Order Comment: Speci men Type: STOOL SPECIMENOrdering Facility: [facility] Address: [address] [place] [address] Performed By: #### 7 9381-0 ####[facility] [id number] [place] [address] [place] ENTEROAGGREGATIVE E. COLI (EAEC) DNA Not detected Normal Not Detected [facility] Comment on above: Order Comment: Speci men Type: STOOL SPECIMENOrdering Facility: [facility] Address: [address] [place] [address] Performed By: #### 7 9381-0 ####[facility] [id number] [place] [address] [place] ENTEROPATHOGENIC E. COLI (EPEC) DNA Not detected Normal Not detected [facility] Comment on above: Order Comment: Speci men Type: STOOL SPECIMENOrdering Facility: [facility] Address: [address] [place] [address] Performed By: #### 7 9381-0 ####[facility] [id number] [place] [address] [place] ENTEROTOXIGENIC E. COLI (ETEC) DNA Not detected Normal Not Detected [facility] Comment on above: Order Comment: Speci men Type: STOOL SPECIMENOrdering Facility: [facility] Address: [address] [place] [address] Performed By: #### 7 9381-0 ####[facility] [id number] [place] [address] [place] G. lamblia DNA LAUREANO+probe Ql (Unsp spec) Not detected Normal Not Detected [facility] Comment on above: Order Comment: Speci men Type: STOOL SPECIMENOrdering Facility: [facility] Address: [address] [place] [address] Performed By: #### 7 9381-0 ####[facility] [id number] [place] [address] [place] NOROVIRUS GI/GII RNA Not detected Normal Not Detected [facility] Comment on above: Order Comment: Speci men Type: STOOL SPECIMENOrdering Facility: [facility] Address: [address] [place] [address] Performed By: #### 7 9381-0 ####[facility] [id number] [address] [place] PLESIOMONAS SHIGELLOIDES DNA Not detected Normal Not Detected [facility] Comment on above: Order Comment: Speci men Type: STOOL SPECIMENOrdering Facility: [facility] Address: [address] [place] [address] Performed By: #### 7 9381-0 ####[facility] [id number] [place] [address] [place] ROTAVIRUS A RNA Not detected Normal Not Detected [facility] Comment on above: Order Comment: Speci men Type: STOOL SPECIMENOrdering Facility: [facility] Address: [address] [place] [address] Performed By: #### 7 9381-0 ####[facility] [id number] [place] [address] [place] Salmonella sp DNA LAUREANO+probe Ql (Unsp spec) Not detected Normal Not Detected [facility] Comment on above: Order Comment: Speci men Type: STOOL SPECIMENOrdering Facility: [facility] Address: [address] [place] [address] Performed By: #### 7 9381-0 ####[facility] [id number] [address] [place] SAPOVIRUS (GENOGROUPS I, II, IV, V) RNA Not detected Normal Not Detected [facility] Comment on above: Order Comment: Speci men Type: STOOL SPECIMENOrdering Facility: [facility] Address: [address] [place] [address] Performed By: #### 7 9381-0 ####[facility] [id number] [place] [address] [place] Shigella species+EIEC invasion plasmid antigen H ipaH gene LAUREANO+probe Ql (Stl) Not detected Normal Not Detected [facility] Comment on above: Order Comment: Speci men Type: STOOL SPECIMENOrdering Facility: [facility] Address: [address] [place] [address] Performed By: #### 7 9381-0 ####[facility] [id number] [place] [address] [place] V. cholerae DNA LAUREANO+probe Ql (Unsp spec) Not detected Normal Not Detected [facility] Comment on above: Order Comment: Speci men Type: STOOL SPECIMENOrdering Facility: [facility] Address: [address] [place] [address] Performed By: #### 7 9381-0 ####[facility] [id number] [place] [address] [place] Vibrio sp DNA LAUREANO+probe Nom (Unsp spec) Not detected Normal Not Detected [facility] Comment on above: Order Comment: Speci men Type: STOOL SPECIMENOrdering Facility: [facility] Address: [address] [place] [address] Performed By: #### 7 9381-0 ####[facility] [id number] [address] [place] Yersinia sp DNA LAUREANO+probe Nom (Unsp spec) Not detected Normal Not Detected [facility] Comment on above: Order Comment: Speci men Type: STOOL SPECIMENOrdering Facility: [facility] [facility] Address: [address] [place] [address] Performed By: #### 7 9381-0 ####[facility] [id number] [place] [address] [place] Magnesium SerPl-mCncon 10-22 Magnesium [Mass/Vol] 1.3 mg/dL Low 1.6-2.6 [facility] Comment on above: Order Comment: Speci men Type: BLOOD SPECIMEN Ordering Facility: [facility] Address: [address] [place] [address] Performed By: #### 4 091-5 #### [facility] CLIA [id number] [facility] [place] [address] [place] C diff Tox gens Stl Ql LAUREANO+p robeon 10-21-2024 C. difficile toxin genes LAUREANO+probe Ql (Stl) Negative Normal Negative for C. difficile toxin by PCR [facility] Comment on above: Order Comment: Speci men Type: BLOOD SPECIMEN Ordering Facility: [facility] Address: [address] [place] [address] Performed By: #### 4 091-5 #### [facility] CLIA [id number] [address] [place], [place] [address] [place] CBC panel Auto (Bld)on 10-21 Erythrocyte distribution width (RBC) [Ratio] 14.6 % Normal 11.5-15.0 [facility] Comment on above: Order Comment: Speci men Type: BLOOD SPECIMEN Ordering Facility: [facility] Address: [address] [place] [address] Performed By: #### 4 091-5 #### [facility] CLIA [id number] [address] [place] [place] [address] [place] Hematocrit (Bld) [Volume fraction] 31.0 % Low 36.0-46.0 [facility] Comment on above: Order Comment: Speci men Type: BLOOD SPECIMEN Ordering Facility: [facility] Address: [address] [place] [address] Performed By: #### 4 091-5 #### [facility] CLIA [id number] [address] [place] [address] [place] Hemoglobin (Bld) [Mass/Vol] 9.3 g/dL Low 11.5-15.5 [facility] Comment on above: Order Comment: Speci men Type: BLOOD SPECIMEN Ordering Facility: [facility] Address: [address] [place] [address] Performed By: #### 4 091-5 #### [facility] CLIA [id number] [address] [place] [address] [place] MCH (RBC) [Entitic mass] 24.1 pg Low 26.0-34.0 [facility] Comment on above: Order Comment: Speci men Type: BLOOD SPECIMEN Ordering Facility: [facility] Address: [address] [place] [address] Performed By: #### 4 091-5 #### [facility] CLIA [id number] [address] [place] [address] [place] MCHC (RBC) [Mass/Vol] 30.0 g/dL Low 30.5-36.0 [facility] Comment on above: Order Comment: Speci men Type: BLOOD SPECIMEN Ordering Facility: [facility] Address: [address] [place] [address] Performed By: #### 4 091-5 #### [facility] CLIA [id number] [address] [place] [address] [place] MCV (RBC) [Entitic vol] 80.3 fL Normal 80.0-100.0 [facility] Comment on above: Order Comment: Speci men Type: BLOOD SPECIMEN Ordering Facility: [facility] Address: [address] [place] [address] Performed By: #### 4 091-5 #### [facility] CLIA [id number] [address] [place] [address] [place] Nucleated RBC (Bld) [#/Vol] 10*3/uL Normal <0.01 [facility] Comment on above: Order Comment: Speci men Type: BLOOD SPECIMEN Ordering Facility: [facility] Address: [address] [place] [address] Performed By: #### 4 091-5 #### [facility] CLIA [id number] [address] [place] [address] [place] Platelet mean volume (Bld) [Entitic vol] 8.9 fL Low 9.0-12.7 [facility] Comment on above: Order Comment: Speci men Type: BLOOD SPECIMEN Ordering Facility: [facility] Address: [address] [place] [address] Performed By: #### 4 091-5 #### [facility] CLIA [id number] [address] [place] [address] [place] Platelets (Bld) [#/Vol] 441 10*3/uL High 150-400 [facility] Comment on above: Order Comment: Speci men Type: BLOOD SPECIMEN Ordering Facility: [facility] Address: [address] [place], [place] [address] Performed By: #### 4 091-5 #### [facility] CLIA [id number] [address] [place] [address] RBC (Bld) [#/Vol] 3.86 10*6/uL Low 3.90-5.20 [facility] Comment on above: Order Comment: Speci men Type: BLOOD SPECIMEN Ordering Facility: [facility] Address: [address] [place] [address] Performed By: #### 4 091-5 #### [facility] CLIA [id number] [address] [place] [address] WBC (Bld) [#/Vol] 5.24 10*3/uL Normal 3.70-11.00 [facility] Comment on above: Order Comment: Speci men Type: BLOOD SPECIMEN Ordering Facility[facility] Address: [address] [place] [address] Performed By: #### 4 091-5 #### [facility] CLIA [id number] [address] [place] [address] OF [facility] Comprehensive metabolic 2000 panelon 10-21-2024 Albumin [Mass/Vol] 2.8 g/dL Low 3.2-5.0 [facility] Comment on above: Order Comment: Speci men Type: BLOOD SPECIMEN Ordering [facility] Address: [address] [place] [address] Performed By: #### 4 091-5 #### [facility] CLIA [id number] [address] [place] [address] [place] ALP [Catalytic activity/Vol] 117 U/L Normal 45-117 [facility] Comment on above: Order Comment: Speci men Type: BLOOD SPECIMEN Ordering Facility: [facility] Address: [address] [place] [address] Performed By: #### 4 091-5 #### [facility] CLIA [id number] [address] [place] [address] [place] ALT [Catalytic activity/Vol] 19 U/L Normal 13-61 [facility] Comment on above: Order Comment: Dora finch Type: BLOOD SPECIMEN Ordering Facility: [facility] Address: [address] [place] [address] Result Comment: Resu lts may be falsely depressed after the administration of Sulfasalazine and/or Sulfapyridine. Performed By: #### 4 091-5 #### [facility] CLIA [id number] [address] [place] [address] [place] Anion gap [Moles/Vol] 9 mmol/L Normal 5-16 [facility] Comment on above: Order Comment: Dora finch Type: BLOOD SPECIMEN Ordering Facility: [facility] Address: [address] [place] [address] Performed By: #### 4 091-5 #### [facility] CLIA [id number] [address] [place] [address] [place] AST [Catalytic activity/Vol] 13 U/L Normal 8-34 [facility] Comment on above: Order Comment: Dora finch Type: BLOOD SPECIMEN Ordering [facility]: [facility] Address: [address] [place] [address] Result Comment: Resu lts may be falsely depressed after the administration of Sulfasalazine and/or Sulfapyridine. Performed By: #### 4 091-5 #### [facility] CLIA [id number] [address] [place] [address] [place] Bilirubin [Mass/Vol] 0.9 mg/dL Normal 0.2-1.0 [facility] Comment on above: Order Comment: Dora finch Type: BLOOD SPECIMEN Ordering [facility]: [facility] Address: [address] [place] [address] Performed By: #### 4 091-5 #### [facility] CLIA [id number] [address] [place] [address] [place] Calcium [Mass/Vol] 9.1 mg/dL Normal 8.5-10.5 [facility] Comment on above: Order Comment: Speci men Type: BLOOD SPECIMEN Ordering [facility]: [facility] Address: [address] [place] [address] Performed By: #### 4 091-5 #### [facility] CLIA [id number] [address] [place] [address] [place] Chloride [Moles/Vol] 100 mmol/L Normal 98-107 [facility] Comment on above: Order Comment: Speci men Type: BLOOD SPECIMEN Ordering Facility: [facility] Address: [address] [place] [address] Performed By: #### 4 091-5 #### [facility] CLIA [id number] [address] [place] [address] [place] CO2 [Moles/Vol] 26 mmol/L Normal 21-32 [facility] Comment on above: Order Comment: Speci men Type: BLOOD SPECIMEN Ordering [facility]: [facility] Address: [address] [place] [address] Performed By: #### 4 091-5 #### [facility] CLIA [id number] [address] [place] [address] [place] Creatinine [Mass/Vol] 0.98 mg/dL High 0.51-0.95 [facility] Comment on above: Order Comment: Speci men Type: BLOOD SPECIMEN Ordering Facility: [facility] Address: [address] [place] [address] Result Comment: Marissa ents receiving either N-Acetylcysteine (NAC) or Metamizole prior to venipuncture, may have falsely depressed results. Performed By: #### 4 091-5 #### [facility] CLIA [id number] [address] [place] [address] [place] Creatinine and Glomerular filtration rate.predicted panel (S/P/Bld) 75 mL/min/1.73m??? Normal >=60 [facility] Comment on above: Order Comment: Speci men Type: BLOOD SPECIMEN Ordering Facility: [facility] Address: [address] [place] [address] Result Comment: Zeny mated Glomerular Filtration Rate (eGFR) is calculated using the 2020 CKD-EPI creatinine equation. This equation utilizes serum creatinine, sex, and age as parameters. The creatinine assay has traceable calibration to isotope dilution-mass spectrometry. Refer to KDIGO guidelines for clinical interpretation. In patients with unstable renal function, e.g. those with acute kidney injury, the eGFR may not accurately reflect actual GFR. Performed By: #### 4 091-5 #### [facility] CLIA [id number] [address] [place] [address] [place] Glucose [Mass/Vol] 140 mg/dL High 70-100 [facility] Comment on above: Order Comment: Dora finch Type: BLOOD SPECIMEN Ordering Facility: [facility] Address: [address] [place] [address] Result Comment: The [place] [employer] (ADA) provides guidance for cutoff values for fasting glucose and random glucose. The ADA defines fasting as no caloric intake for at least 8 hours. Fasting plasma glucose results between 100 to 125 mg/dL indicate increased risk for diabetes (prediabetes). Fasting plasma glucose results greater than or equal to 126 mg/dL meet the criteria for diagnosis of diabetes. In the absence of unequivocal hyperglycemia, results should be confirmed by repeat testing. In a patient with classic symptoms of hyperglycemia or hyperglycemic crisis, random plasma glucose results greater than or equal to 200 mg/dL meet the criteria for diagnosis of diabetes. Reference: Standards of Medical Care in Diabetes 2016, [place] [employer]. Diabetes Care. 2016.39(Suppl 1). Results may be falsely elevated after the administration of Sulfapyridine. Results may be falsely depressed after the administration of Sulfasalazine. Performed By: #### 4 091-5 #### [facility] CLIA [id number] [address] [place] [address] [place] Potassium [Moles/Vol] 2.8 mmol/L Low 3.5-5.1 [facility] Comment on above: Order Comment: Dora finch Type: BLOOD SPECIMEN Ordering Facility: [facility] Address: [address] [place] [address] Performed By: #### 4 091-5 #### [facility] CLIA [id number] [address] [place] [address] [place] Protein [Mass/Vol] 6.7 g/dL Normal 6.0-8.5 [facility] Comment on above: Order Comment: Speci men Type: BLOOD SPECIMEN Ordering [facility]: [facility] Address: [address] [place] [address] Performed By: #### 4 091-5 #### [facility] CLIA [id number] [address] [place] [address] [place] Sodium [Moles/Vol] 135 mmol/L Low 136-145 [facility] Comment on above: Order Comment: Speci men Type: BLOOD SPECIMEN Ordering [facility]: [facility] Address: [address] [place] [address] Performed By: #### 4 091-5 #### [facility] CLIA [id number] [address] [place] [address] [place] Urea nitrogen [Mass/Vol] 9 mg/dL Normal 01-19 [facility] Comment on above: Order Comment: Speci men Type: BLOOD SPECIMEN [facility] Address: [address] [place] [address] Performed By: #### 4 091-5 #### [facility] CLIA [id number] [address] [place] [address] [place] Magnesium SerPl-mCncon 10-21 Magnesium [Mass/Vol] 1.4 mg/dL Low 1.6-2.6 [facility] Comment on above: Order Comment: Speci men Type: BLOOD SPECIMEN Ordering Facility: [facility] Address: [address] [place] [address] Performed By: #### 4 091-5 #### [facility] CLIA [id number] [address] [place] [address] [place] Basic metabolic 2000 panelon 10-20-2024 Anion gap [Moles/Vol] 10 mmol/L Normal 5-16 [facility] Comment on above: Order Comment: Speci men Type: BLOOD SPECIMEN Ordering Facility: [facility] Address: [address] [place], [place] [address] Performed By: #### 4 5066-8 #### [facility] CLIA [id number] [address] [place], [place] [address] [place] Calcium [Mass/Vol] 9.2 mg/dL Normal 8.5-10.5 [facility] Comment on above: Order Comment: Speci men Type: BLOOD SPECIMEN Ordering Facility: [facility] Address: [address] [place] [address] Performed By: #### 4 5066-8 #### [facility] CLIA [id number] [address] [place] [address] [place] Chloride [Moles/Vol] 100 mmol/L Normal 98-107 [facility] Comment on above: Order Comment: Speci men Type: BLOOD SPECIMEN Ordering Facility: [facility] Address: [address] [place] [address] Performed By: #### 4 5066-8 #### [facility] CLIA [id number] [address] [place] [address] [place] CO2 [Moles/Vol] 21 mmol/L Normal 21-32 [facility] Comment on above: Order Comment: Speci men Type: BLOOD SPECIMEN Ordering Facility: [facility] Address: [address] [place] [address] Performed By: #### 4 5066-8 #### [facility] CLIA [id number] [address] [place] [address] [place] Creatinine [Mass/Vol] 1.17 mg/dL High 0.51-0.95 [facility] Comment on above: Order Comment: Speci men Type: BLOOD SPECIMEN Ordering Facility: [facility] Address: [address] [place] [address] Result Comment: Marissa ents receiving either N-Acetylcysteine (NAC) or Metamizole prior to venipuncture, may have falsely depressed results. Performed By: #### 4 5066-8 #### [facility] CLIA [id number] [address] [place] [address] [place] Creatinine and Glomerular filtration rate.predicted panel (S/P/Bld) 60 mL/min/1.73m??? Normal >=60 [facility] Comment on above: Order Comment: Dora finch Type: BLOOD SPECIMEN Ordering Facility: [facility] Address: [address] [place] [address] Result Comment: Zeny mated Glomerular Filtration Rate (eGFR) is calculated using the 2020 CKD-EPI creatinine equation. This equation utilizes serum creatinine, sex, and age as parameters. The creatinine assay has traceable calibration to isotope dilution-mass spectrometry. Refer to KDIGO guidelines for clinical interpretation. In patients with unstable renal function, e.g. those with acute kidney injury, the eGFR may not accurately reflect actual GFR. Performed By: #### 4 5066-8 #### [facility] CLIA [id number] [address] [place] [address] [place] Glucose [Mass/Vol] 118 mg/dL High 70-100 [facility] Comment on above: Order Comment: Dora finch Type: BLOOD SPECIMEN Ordering Facility: [facility] Address: [address] [place] [address] Result Comment: The [place] [employer] (ADA) provides guidance for cutoff values for fasting glucose and random glucose. The ADA defines fasting as no caloric intake for at least 8 hours. Fasting plasma glucose results between 100 to 125 mg/dL indicate increased risk for diabetes (prediabetes). Fasting plasma glucose results greater than or equal to 126 mg/dL meet the criteria for diagnosis of diabetes. In the absence of unequivocal hyperglycemia, results should be confirmed by repeat testing. In a patient with classic symptoms of hyperglycemia or hyperglycemic crisis, random plasma glucose results greater than or equal to 200 mg/dL meet the criteria for diagnosis of diabetes. Reference: Standards of Medical Care in Diabetes 2016, [place] [employer]. Diabetes Care. 2016.39(Suppl 1). Results may be falsely elevated after the administration of Sulfapyridine. Results may be falsely depressed after the administration of Sulfasalazine. Performed By: #### 4 5066-8 #### [facility] CLIA [id number] [address] [place], [place] [address] [place] Potassium [Moles/Vol] 3.3 mmol/L Low 3.5-5.1 [facility] Comment on above: Order Comment: Speci men Type: BLOOD SPECIMEN Ordering Facility: [facility] Address: [address] [place] [address] Performed By: #### 4 5066-8 #### [facility] CLIA [id number] [address] [place] [place] [address] [place] Sodium [Moles/Vol] 131 mmol/L Low 136-145 [facility] Comment on above: Order Comment: Speci men Type: BLOOD SPECIMEN Ordering Facility: [facility] Address: [address] [place] [address] Performed By: #### 4 5066-8 #### [facility] CLIA [id number] [address] [place] [address] [place] Urea nitrogen [Mass/Vol] 13 mg/dL Normal 01-19 [facility] Comment on above: Order Comment: Speci men Type: BLOOD SPECIMEN Ordering Facility: [facility] Address: [address] [place] [address] Performed By: #### 4 5066-8 #### [facility] CLIA [id number] [address] [place] [address] [place] CBC panel Auto (Bld)on 10-20 Erythrocyte distribution width (RBC) [Ratio] 14.6 % Normal 11.5-15.0 [facility] Comment on above: Order Comment: Speci men Type: BLOOD SPECIMEN Ordering Facility: [facility] Address: [address] [place] [address] Performed By: #### 4 5066-8 #### [facility] CLIA [id number] [address] [place] [address] [place] Hematocrit (Bld) [Volume fraction] 32.1 % Low 36.0-46.0 [facility] Comment on above: Order Comment: Speci men Type: BLOOD SPECIMEN Ordering Facility: [facility] Address: [address] [place] [address] Performed By: #### 4 5066-8 #### [facility] CLIA [id number] [address] [place] [address] [place] Hemoglobin (Bld) [Mass/Vol] 10.3 g/dL Low 11.5-15.5 [facility] Comment on above: Order Comment: Speci men Type: BLOOD SPECIMEN Ordering Facility: [facility] Address: [address] [place] [address] Performed By: #### 4 5066-8 #### [facility] CLIA [id number] [address] [place] [address] [place] MCH (RBC) [Entitic mass] 24.5 pg Low 26.0-34.0 [facility] Comment on above: Order Comment: Speci men Type: BLOOD SPECIMEN Ordering Facility: [facility] Address: [address] [place] [address] Performed By: #### 4 5066-8 #### [facility] [place] [id number] [address] [place] [address] [place] MCHC (RBC) [Mass/Vol] 32.1 g/dL Normal 30.5-36.0 [facility] Comment on above: Order Comment: Speci men Type: BLOOD SPECIMEN Ordering Facility: [facility] Address: [address] [place] [address] Performed By: #### 4 5066-8 #### [facility] [place] [id number] [address] [place] [address] [place] MCV (RBC) [Entitic vol] 76.4 fL Low 80.0-100.0 [facility] Comment on above: Order Comment: Speci men Type: BLOOD SPECIMEN Ordering Facility: [facility] Address: [address] [place] [address] Performed By: #### 4 5066-8 #### [facility] CLIA [id number] [address] [place] [address] [place] Nucleated RBC (Bld) [#/Vol] 10*3/uL Normal <0.01 [facility] Comment on above: Order Comment: Speci men Type: BLOOD SPECIMEN Ordering Facility: [facility] Address: [address] [place] [id number] Performed By: #### 4 5066-8 #### [facility] CLIA [id number] [address] [place], [place] [address] [place] Platelet mean volume (Bld) [Entitic vol] 9.1 fL Normal 9.0-12.7 [facility] Comment on above: Order Comment: Speci men Type: BLOOD SPECIMEN Ordering Facility: [facility] Address: [address] [place] [address] Performed By: #### 4 5066-8 #### [facility] CLIA [id number] [address] [place] [address] [place] Platelets (Bld) [#/Vol] 485 10*3/uL High 150-400 [facility] Comment on above: Order Comment: Speci men Type: BLOOD SPECIMEN Ordering Facility: [facility] Address: [address] [place] [address] Performed By: #### 4 5066-8 #### [facility] CLIA [id number] [address] [place] [address] [place] RBC (Bld) [#/Vol] 4.20 10*6/uL Normal 3.90-5.20 [facility] Comment on above: Order Comment: Speci men Type: BLOOD SPECIMEN Ordering Facility: [facility] Address: [address] [place] [address] Performed By: #### 4 5066-8 #### [facility] CLIA [id number] [address] [place] [address] [place] WBC (Bld) [#/Vol] 8.42 10*3/uL Normal 3.70-11.00 [facility] Comment on above: Order Comment: Speci men Type: BLOOD SPECIMEN Ordering Facility: [facility] Address: [address] [place] [address] Performed By: #### 4 5066-8 #### [facility] CLIA [id number] [address] [place], [place] [address] [place] CONSULTon 04-26-2025 CONSULT HNO ID: [id number] Author: TUNG JENNINGS MD Service: Gastroenterology Author Type: Nurse Practitioner Type: Consults Filed: 10/20/2024 13:44 Note Text: Attestation signed by Tung Jennings MD at 10/20/2024 1:44 PM Attending Note I have personally performed a face to face assessment of the patient and have reviewed the ISHAAN note. I performed a substantive portion of the visit including all aspects of the following. 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 Patient was okay on TPN however she was meeting p.o. requirements so this was stopped and gradually her ostomy output has been becoming worse. The volume of the ostomy output has not been measured while in hospital but the patient states that the back needs to be changed every few hours Exam significant for nontender abdomen and ostomy output light brown mostly liquid content There is evidence of electrolyte abnormality and mild JONATAN on her laboratory work CBC needs on a baseline hemoglobin Assessment and plan Patient with worsening ostomy output in the settings of short gut syndrome Will rule out infectious etiology stool studies were ordered Once this is been done and negative we will consider starting scheduled Imodium Consider consulting nutrition for her diet She should be avoiding hyper and hypotonic fluids such as soda coffee or tea, but consider drinking more oral rehydration solution Inpatient GI will follow Other additions or changes: None Signature: Tung Jennings MD Date: 10/20/2024 Time: 1:31 PM INITIAL CONSULT GASTROENTEROLOGY SERVICE DATE: October 20, 2024 SERVICE TIME: 7:43 AM CONSULTING SERVICE: Gastroenterology REASON FOR CONSULT: Chronic diarrhea since ileostomy placement HPI: Patient is a 39-year-old female, past medical history significant for bipolar disorder, panic disorder, anxiety, obesity, DVT on Lovenox, polysubstance use, cholecystectomy 2018, mural thrombus distal descending thoracic aorta, 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 s/p exploratory laparotomy w/small bowel resection of mid-distal jejunum and ileum with ileocecectomy 08/20/2024 with second look laparotomy ending in loop-end jejunostomy 08/22/2024, 110cm to end jejunostomy, with long rectal stump, embolic occlusion of the left internal iliac artery, and embolic occlusion of the bilateral tibial arteries s/p bilateral below knee popliteal cutdowns and bilateral thromboembolectomies of AT/PT and peroneal arteries, primary repair oftibial arteriotomies, and BLLE 4 compartment fasciotomies 08/20/2024 s/p bilateral lower extremity lateral fasciotomy closures 08/23/2024, presented to [facility] on 10/19 from SNF for frequent recurring diarrhea. Noted recent hospitalization here at [facility] for accidental overdose at her facility with methadone. GI was consulted at the time for coffee-ground emesis and was treated with conservative management. Patient with noted recent extensive hospitalization for acute mesenteric ischemia as well as acute limb ischemia due to thromboembolism requiring extensive abdominal and vascular surgical intervention as noted above. Patient has required TPN for poor overall nutritional intake as well as nausea, has been rehabilitating at a SNF, has been off the TPN for the last two weeks. Patient has been worked up for antiphospholipid syndrome by hematology with continued workup pending with plans to indefinitely anticoagulate patient and transition to Coumadin once clinically stable and off TPN. ER lab work this admission showed a low sodium 131, low potassium 3.3, normal BUN with slightly elevated creatinine 1.17, slight hyperglycemia 118, LFTs were not performed, normal TSH, no leukocytosis, chronic anemia hemoglobin 10.3 above baseline of 8-9. No imaging has been completed at the time of this notes dictation during this admission. Patient is laying in bed no acute distress. Reports high output jejunostomy since she was taken off TPN approximately 2 weeks ago. Does report taking some Imodium at the rehab facility that really has not decreased the output of her ileostomy to the of her knowledge. Denies any overt GI bleeding no melena hematochezia or hematemesis. Denies any abdomin (more content not included)... Normal [facility] ED MED ADMINISTRATION DETAIL on 10-20-2024 ED MED ADMINISTRATION DETAIL Elocution Teacher Medication Administration Record [address] [place] [address] [id number] 10/19/2024 Patient: DALY EVANS Sex: Female : 1985 Age: 39y MEASUREMENTS: Wt: 86.2 kg, Ht/Jean-Paul: 67.0 in, BMI: 29.76 ALLERGIES: Pachuta Medication Ordered Medication Administration Date/Time IV NS 0.9 % 1000 14:54 10/19 IV NS 0.9 % 1000 mL started in bag#1 1000 mL at Started mL at 999 mL/hr 999 mL/hr via Site# 1. Allergies verified and confirmed 5 rights. IV 14:54 10/19/2024 (NOW x1) patency established. IV site checked: no pain, redness, or swelling. Maliha Rosen R.N. IV flushed thoroughly pre-medication administration. Information Stopped reviewed with patient. Verbalizes understanding. - 14:55 Maliha 19:01 10/19/2024 Shameka Rosen R.N. Scanned 19:10/19 Medication Discontinued: bag #1 infused. Total amount infused: 1000 mL. IV patency established. IV site checked: no pain, redness, or swelling. IV flushed thoroughly post-medication administration. - 19:20 John Velasco R.N. 1 of 2 Elocution Teacher Medication Ordered Medication Administration Date/Time IV NS 0.9 % 1000 18:10/19 IV NS 0.9 % 1000 mL started in bag#2 1000 mL at Started mL at 250 mL/hr 250 mL/hr via Site# 1. Allergies verified and confirmed 5 rights. IV 18:13 10/19/2024 (NOW x1) patency established. IV site checked: no pain, redness, or swelling. Maliha Rosen R.N. IV flushed thoroughly pre-medication administration. Information Stopped reviewed with patient. Verbalizes understanding. - 18:14 Maliha 20:17 10/19/2024 Shameka Rosen R.N. Scanned 20:17 10/19 Medication Discontinued: bag #2 infused upon transfer. Total amount infused: 1000 mL. IV patency established. IV site checked: no pain, redness, or swelling. IV flushed thoroughly post-medication administration. - 20:21 John Velasco R.N. 2 of 2 Normal [facility] ED NURSES CLINICAL NOTEon ED NURSES CLINICAL NOTE Nurse Narrative Nurse Clinical Narrative [facility] [address] [place] [address]. [place] [address] [id number] 10/19/2024 14:05:00 Patient: DALY EVANS Sex: Female : 1985 Age: 39y Disposition: Transfer to [facility] Disposition Decision Time: 19:03 10/19/2024 Departure Time: 20:10/19/2024 TRIAGE Arrived by EMS. Historian: (patient). Unaccompanied. Primary physician (Dr Boland). Triage time: 14:19 10/19/2024. Acuity: LEVEL 3. Chief Complaint: DIZZINESS and NEAR-SYNCOPE. Alert. No acute distress. This started 1 week. ( Patient reports she becomes dizzy when standing up and has fallen down to her knees multiple times over the last week. She denies any syncopal episodes.). SEPSIS SCREEN: NEGATIVE. SIRS criteria negative. No possible sources of infection. -- 14:28 10/19/24 EDT Prashanth Isidro R.N. 14:25 10/19/24. BP: 90/63 MAP: 72. HR: 111. RR: 16. O2 saturation: 99% Temperature: 98.1 F. Pain level now 0/10. -- 14:10/19/24 CHARLY Isirdo R.N. Measurements: 14:10/19/24 Wt: 86.2 kg, Ht/Jean-Paul: 67.0 in, BMI: 29.76 -- 14:10/19/24 CHARLY Isidro R.N. Medications: enoxaparin 100 mg/mL subcutaneous syringe: twice a day . (give per [place] MAR dose of 0.95ml) -- 14:10/19/24 CHARLY Isidro R.N. 1 of 6 Nurse Narrative atorvastatin 40 mg tablet: 1 tablet once a day . -- 14:10/19/24 CHARLY Isidro R.N. aspirin 81 mg chewable tablet: 1 tablet once a day . -- 14:10/19/24 CHARLY Isidro R.N. Kaitlyn 0.25 mg-0.035 mg tablet -- 14:10/19/24 CHARLY Isidro R.N. Glucose Gel 40 % oral gel: 32 . (take 32 ml by mouth as needed for blood glucose is less than 70mg/dl) -- 14:10/19/24 CHARLY Isidro R.N. ondansetron 4 mg disintegrating tablet: 1 tablet every six hours . -- 14:10/19/24 CHARLY Isidro R.N. acetaminophen 325 mg chewable tablet: 1 tablet every six hours . -- 14:10/19/24 CHARLY Isidro R.N. vancomycin 1.5 gram/300 mL in diluent combination IV piggyback: 1500 mg twice a day . -- 14:10/19/24 CHARLY Isidro R.N. pantoprazole 40 mg tablet,delayed release: 1 tablet once a day . -- 14:10/19/24 CHARLY Isidro R.N. olanzapine 20 mg tablet: 1 tablet once a day . -- 14:10/19/24 CHARLY Isidro R.N. magnesium 400 mg (as magnesium oxide) tablet: 1 tablet once a day . -- 14:10/19/24 CHARLY Isidro R.N. loperamide 2 mg capsule: 1 capsule four times a day . (before meals and at bedtime) -- 14:10/19/24 CHARLY Isidro R.N. Lantus Solostar U-100 Insulin 100 unit/mL (3 mL) subcutaneous pen: 10 unit once a day . -- 14:10/19/24 CHARLY Isidro R.N. gabapentin 600 mg tablet: 1 tablet three times a day . -- 14:10/19/24 CHARLY Isidro R.N. ferrous sulfate 325 mg (65 mg iron) tablet: 1 tablet once a day . -- 14:10/19/24 CHARLY Isidro R.N. escitalopram 20 mg tablet: 1 tablet once a day . -- 14:10/19/24 CHARLY Isidro R.N. LomotiL 2.5 mg-0.025 mg tablet: 2.5 mg three times a day for diarrhea. -- 14:10/19/24 CHARLY Isidro R.N. Allergies: Pachuta -- 14:10/19/24 [place] Prashanth Isidro R.N. Problems: superior mesenteric artery injury -- 14:10/19/24 CHARLY Isidro R.N. embolism and thrombosis of thoracic aorta -- 14:10/19/24 CHARLY Isidro R.N. 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 psychcoactive substance abuse -- 14:10/19/24 CHARLY Isidro R.N. history of suicide attempt -- 14:10/19/24 CHARLY Isidro R.N. Depression -- 14:10/19/24 [place] Prashanth Isidro R.N. Diabetes Mellitus -- 14:10/19/24 [place] Prashanth Isidro R.N. Monoclonal gammopathy (clinical) -- 14:10/19/24 CHARLY Isidro R.N. Thrombophilia -- 14:10/19/24 EDT Prashanth Isidro R.N. Hyperlipidemia -- 14:10/19/24 EDT Prashanth Isidro R.N. Iron deficiency anemia -- 14:10/19/24 EDT Prashanth Isidro R.N. Gastroesophageal Reflux Disease -- 14:10/19/24 EDT Prashanth Isidro R.N. 2 of 6 Nurse Narrative Vitamin D deficiency -- 14:10/19/24 EDT Prashanth Isidro R.N. Insomnia -- 14:10/19/24 EDT Prashanth Isidro R.N. Panic disorder -- 14:10/19/24 EDT Prashanth Isidro R.N. Bipolar Disorder -- 14:10/19/24 EDT Prashanth Isidro R.N. Colostomy (procedure) -- 14:10/19/24 EDT Prashanth Isidro R.N. ADDITIONAL SURGERIES: abd surgery with colostomy -- 14:10/19/24 EDT Prashanth Isidro R.N. compartmental syndrome bilat legs -- 14:10/19/24 EDT Prashanth Isidro R.N. Cholecystectomy -- 14:10/19/24 EDT Prashanth Isidro R.N. -- 14:10/19/24 EDT Prashanth Isidro R.N. Carpal Tunnel Surgery -- 14:10/19/24 EDT Prashanth Isidro R.N. History 14:10/19/24. SOCIAL HX: Never smoker. No alcohol use or drug use. The patient has not traveled outside the [place] Infectious disease exposure: No infectious disease exposure. ABUSE ASSESSMENT: Abuse denied. No suspicion of abuse (more content not included)... Normal [facility] ED ORDER SHEET (CPOE ONLY)on 10-20-2024 ED ORDER SHEET (CPOE ONLY) Order Sheet Order Sheet [address] [address] [id number] 10/19/2024 Patient: DALY EVANS Sex: Female : 1985 Age: 39y MEASUREMENTS: Wt: 86.2 kg, Ht/Jean-Paul: 67.0 in, BMI: 29.76 ALLERGIES: Pachuta MEDICATION/IV/DRIP/FLUID ORDERS Order Description Priority Entered Acknowledged Completed IV NS 0.9 %1000 mL at 999 14:51 10/19/2024 14:51 14:55 mL/hr (NOW x1) Herbert Flores, 10/19/2024 10/19/2024 Shameka Purcell R.N. IV NS 0.9 %1000 mL at 250 17:10 10/19/2024 17:11 18:14 mL/hr (NOW x1) Herbert Flores, 10/19/2024 10/19/2024 Shameka Purcell R.N. Reason for ordering with alerts: Benefits outweigh risks --17:10 10/19/2024 Herbert Flores D.O. LAB ORDERS Order Description Priority Entered Acknowledged Collected Completed CBC w Diff Stat Stat 14:51 10/19/2024 14:51 10/19/2024 19:26 10/19/2024 Maliha Alaniz R.N. Charles Wilbur, D.O. RPriscilaNPriscila 1 of 2 Order Sheet CMP Stat Stat 14:51 10/19/2024 14:51 10/19/2024 19:26 10/19/2024 Maliha Alaniz R.N. Charles Wilbur, D.OPriscila R.N. Troponin-I Stat Stat 14:51 10/19/2024 14:51 10/19/2024 19:26 10/19/2024 Maliha Alaniz R.N. Charles Wilbur, D.OPriscila R.NPriscila Urinalysis Stat Stat 14:51 10/19/2024 Cancelled: Patient Off Unit Herbert Flores, 20:20 EDT John Velasco R.N. D.O. EKG - ED Stat Stat 14:51 10/19/2024 14:51 10/19/2024 19:26 10/19/2024 Maliha Alaniz R.N. Charles Wilbur, D.O. RPriscilaN. Magnesium Stat Stat 18:28 10/19/2024 18:32 10/19/2024 19:27 10/19/2024 Jeny Alaniz R.N. Charles Wilbur, D.O. RIrene DIAGNOSTIC STUDY ORDERS Order Description Priority Entered Acknowledged Completed STAFF ORDERS Order Description Priority Entered Acknowledged Collected Completed IV Saline Lock 14:51 10/19/2024 14:51 10/19/2024 19:26 10/19/2024 Maliha Alaniz R.N. Charles Wilbur, D.O. R.N. [Electronically signed by Herbert Flores D.O. (10/20/2024 07:16 EDT)] 2 of 2 Normal [facility] ED PHYSICIAN CLINICAL REPORT on 10-20-2024 ED PHYSICIAN CLINICAL REPORT Narrative Physician Clinical Narrative [address] [address] [id number] 10/19/2024 14:05:00 Patient: DALY EVANS Sex: Female : 1985 Age: 39y Disposition: Transfer to [facility] Disposition Decision Time: 19:03 10/19/2024 Departure Time: 20:17 10/19/2024 Measurements Wt: 86.2 kg, Ht/Jean-Paul: 67.0 in, BMI: 29.76 Initial Vital Sign Measured Time BP MAP HR RR O2Sat ETCO2 Temp Pain GCS RTS 14:25 10/19/2024 90/63 72 111 16 99% 98.1 F 0 Time Seen: 14:43 10/19/2024. Arrived- By private vehicle. Historian- patient. HISTORY OF PRESENT ILLNESS Chief Complaint: NEAR-SYNCOPE. ( patient came in she is had abdominal surgery which has a ileostomy in place [facility]. And the last room 5 days she has been getting dehydrated she so she drank something or gets fluids it comes out her bag. And she has been feeling lightheaded she has been passing out and they may give her IV fluids it is a [facility] and it has not been working.). Described as feeling light-headed and faint. This started 7 days ago. REVIEW OF SYSTEMS THROAT: No sore throat. CONSTITUTIONAL: No fever or chills. CVS: No chest pain. NEUROLOGICAL: No headache. GI: No abdominal pain or diarrhea. 1 of 9 Narrative PAST HISTORY See nurses notes. 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 aspirin 81 mg chewable tablet: 1 tablet once a day . atorvastatin 40 mg tablet: 1 tablet once a day . enoxaparin 100 mg/mL subcutaneous syringe: twice a day . (give per [place] MAR dose of 0.95ml) escitalopram 20 mg tablet: 1 tablet once a day . ferrous sulfate 325 mg (65 mg iron) tablet: 1 tablet once a day . gabapentin 600 mg tablet: 1 tablet three times a day . Glucose Gel 40 % oral gel: 32 . (take 32 ml by mouth as needed for blood glucose is less than 70mg/dl) 2 of 9 Narrative Lantus Solostar U-100 Insulin 100 unit/mL (3 mL) subcutaneous pen: 10 unit once a day . LomotiL 2.5 mg-0.025 mg tablet: 2.5 mg three times a day for diarrhea. loperamide 2 mg capsule: 1 capsule four times a day . (before meals and at bedtime) magnesium 400 mg (as magnesium oxide) tablet: 1 tablet once a day . Kaitlyn 0.25 mg-0.035 mg tablet olanzapine 20 mg tablet: 1 tablet once a day . ondansetron 4 mg disintegrating tablet: 1 tablet every six hours . pantoprazole 40 mg tablet,delayed release: 1 tablet once a day . vancomycin 1.5 gram/300 mL in diluent combination IV piggyback: 1500 mg twice a day . Allergies: Pachuta SOCIAL HISTORY Never smoker. No alcohol use. ADDITIONAL NOTES The nursing notes have been reviewed. PHYSICAL EXAM Appearance: Alert. No acute distress. ENT: Normal ENT inspection. Moist mucous membranes. Neck: Normal inspection. Neck supple. CVS: Normal heart rate and rhythm. Heart sounds normal. Respiratory: No respiratory distress. Abdomen: Soft. Abnormal bowel sounds. (ileostomy). Back: Normal inspection. Skin: Skin warm and dry. Normal skin color. Normal skin turgor. Extremities: Extremities exhibit normal ROM. No lower extremity edema. Neuro: Alert. Oriented X 3. Cranial nerves normal (as tested). No motor deficit. LABS, X-RAYS, AND EKG 12-LEAD EKG: EKG time: 14:57 10/19/2024. Rate: 109. Tachycardia. Normal P waves. RBBB. Normal ST and T waves. Prior EKG unavailable. The study has been interpreted contemporaneously by me. Interpretation time: 14:59 10/19/2024. 3 of 9 Narrative Laboratory Tests: CBC + DIFF Final STACEY: 10/19/2024 14:30:00 EDT MsgRcvd: 10/19/2024 15:34 EDT Lab Test Result Reference Status Received Comments 10/19/2024 15:34 CBC-COMPLETE CBC + DIFF Final EDT BLOOD COUNT 12.0 x 10/UL 10/19/2024 15:34 WBC 4.5 - 10.8 Final Above high normal EDT 10/19/2024 15:34 RBC 5.12 x 10/UL 4.10 - 5.30 Final EDT 10/19/2024 15:34 HEMOGLOBIN 12.6 g/dl 12.0 - 16.0 Final EDT 10/19/2024 15:34 HEMATOCRIT 38.0 % 34.0 - 46.0 Final EDT 74 fl 10/19/2024 15:34 MCV 80 - 99 Final Below low normal EDT 25 pg 10/19/2024 15:34 MCH 27 - 33 Final Below low normal EDT 10/19/2024 15:34 MCHC 33 X10 3 32 - 36 Final EDT 16.3 % 10/19/2024 15:34 RDW/CV 12.0 - 15.6 Final Above high (more content not included)... Normal [facility] ED [facility] BILL 10-20-2024 ED [facility] [address] [place] [address] [id number] 10/19/2024 Patient: DALY EVANS Sex: Female : 1985 Age: 39y Facility Professional Category Item Description Code Code Quantity Fee Total Drugs Normal Saline 760697 2 $0.00 $0.00 1000cc (040535) Nurse/E/M EMERGENCY 259170 1 $0.00 $0.00 DEPT VISIT HIGH SEVERITYFUNCJ (21635-74) Nurse/IV/IM/Infusions Hydration 250482 4 $0.00 $0.00 additional hour (50238) Nurse/IV/IM/Infusions Hydration initial 024954 1 $0.00 $0.00 (56508) Grand $0.00 Total Providers Herbert Flores D.O. Chief Complaint 1 of 2 Superbill NEAR-SYNCOPE. ( patient came in she is had abdominal surgery which has a ileostomy in place [facility]. And the last room 5 days she has been getting dehydrated she so she drank something or gets fluids it comes out her bag. And she has been feeling lightheaded she has been passing out and they may give her IV fluids it is a [facility] and it has not been working.). Principal Diagnosis Dizziness. Syncope. Renal insufficiency. questioning dumping syndrome. ICD-10 Codes R55: Syncope and collapse R42: Dizziness and giddiness N28.9: Disorder of kidney and ureter, unspecified 2 of 2 Normal [facility] ED VISIT SUMMARYon ED VISIT SUMMARY Visit Overview Visit Overview [address] [address] [id number] 10/19/2024 Patient: DALY EVANS Sex: Female : 1985 Age: 39y 10/20/2024 07:16 AM EDT ED Arrival:14:05 10/19/2024 EDT Status: Recent Travel:no Language:eng Adv Directive: Isolation Status: Ethnicity:N Fall Risk:no risk Infectious Disease Exposure:no Measurements:5'7 / 170.2 Self-Harm Status:no risk Sepsis Screen:negative cm 190.0 lb / 86.2 kg Chief Complaint:DIZZINESS, NEAR-SYNCOPE, (1 week), (Dr Boland), and (Patient reports she becomes dizzy when standing up and has fallen down to her knees multiple times over the last week. She denies any syncopal episodes. ) ALLERGIES Pachuta HOME MEDICATIONS acetaminophen 325 mg chewable tablet: 1 tablet every six hours . 1 Visit Overview aspirin 81 mg chewable tablet: 1 tablet once a day . atorvastatin 40 mg tablet: 1 tablet once a day . enoxaparin 100 mg/mL subcutaneous syringe: twice a day . (give per [place] MAR dose of 0.95ml) escitalopram 20 mg tablet: 1 tablet once a day . ferrous sulfate 325 mg (65 mg iron) tablet: 1 tablet once a day . gabapentin 600 mg tablet: 1 tablet three times a day . Glucose Gel 40 % oral gel: 32 . (take 32 ml by mouth as needed for blood glucose is less than 70mg/dl) Lantus Solostar U-100 Insulin 100 unit/mL (3 mL) subcutaneous pen: 10 unit once a day . LomotiL 2.5 mg-0.025 mg tablet: 2.5 mg three times a day for diarrhea. loperamide 2 mg capsule: 1 capsule four times a day . (before meals and at bedtime) magnesium 400 mg (as magnesium oxide) tablet: 1 tablet once a day . Kaitlyn 0.25 mg-0.035 mg tablet olanzapine 20 mg tablet: 1 tablet once a day . ondansetron 4 mg disintegrating tablet: 1 tablet every six hours . pantoprazole 40 mg tablet,delayed release: 1 tablet once a day . vancomycin 1.5 gram/300 mL in diluent combination IV piggyback: 1500 mg twice a day . PAST MEDICAL HISTORY / PROBLEMS Bipolar Disorder Colostomy (procedure) Depression Diabetes Mellitus Gastroesophageal Reflux Disease Hyperlipidemia Insomnia Iron deficiency anemia Monoclonal gammopathy (clinical) Panic disorder See nurses notes superior mesenteric artery injury Thrombophilia Vitamin D deficiency PAST SURGICAL HISTORY abd surgery with colostomy 2 of 4 Visit Overview Carpal Tunnel Surgery Cholecystectomy SOCIAL HISTORY Nutritional assessment: No deficits Functional assessment: No impairments Learning needs: No barriers Smoking status: No Alcohol use: No Drug use: No ED COURSE MEDICATIONS GIVEN IN EMERGENCY DEPARTMENT 14:54 10/19/24 IV NS 0.9 % 1000 mL 999 mL/hr 18:13 10/19/24 IV NS 0.9 % 1000 mL 250 mL/hr IV SITE INFORMATION 14:54 10/19/24 Site #1 left upper arm PICC, 18g. INTAKE OUTPUT Total Other Fluids 300 mL TOTAL OUTPUT 300 mL REASSESMENT (most recent) 19:42 10/19/24. The patient is calm and resting quietly. ( pt taking po fluids, jello and spirit soda, w/o transport.). GENERAL / NEURO / PSYCH: Patient is calm and cooperative. Affect appears normal. Alert. Oriented X 4. RESPIRATORY: No respiratory distress. CVS: Normal sinus rhythm noted. Patient waiting for transportation. VITAL SIGNS First Vitals Last Vitals Temp 14:25 10/19/24 98.1 F Temp 20:17 10/19/24 BP 14:25 10/19/24 90/63 BP 20:17 10/19/24 114/70 HR 14:25 10/19/24 111 HR 20:17 10/19/24 89 3 of 4 Visit Overview First Vitals Last Vitals RR 14:25 10/19/24 16 RR 20:17 10/19/24 16 O2 Sat 14:25 10/19/24 99% O2 Sat 20:17 10/19/24 99% Pain 14:25 10/19/24 0 Pain 20:17 10/19/24 0 ETCO2 14:25 10/19/24 ETCO2 20:17 10/19/24 GCS 14:25 10/19/24 GCS 20:17 10/19/24 RTS 14:25 10/19/24 RTS 20:17 10/19/24 PROCEDURES NURSING INTERVENTIONS LABS / STUDIES LABS / STUDIES ORDERED CBC w Diff CMP EKG - ED Magnesium Troponin-I CLINICAL IMPRESSION DIZZINESS RENAL INSUFFICIENCY SYNCOPE 4 of 4 Normal [facility] ED VITALS FLOW SHEETon 10-20 ED VITALS FLOW SHEET Vitals Vital Sign Flow Sheet [address] [place] [address] [id number] 10/19/2024 Patient: DALY EVANS Sex: Female : 1985 Age: 39y Measurements Wt: 86.2 kg, Ht/Jean-Paul: 67.0 in, BMI: 29.76 Measured Time BP MAP HR RR O2Sat ETCO2 Temp Pain GCS RTS 20:17 10/19/2024 114/70 85 89 16 99% 0 18:23 10/19/2024 120/78 92 107 22 94% 15:08 10/19/2024 123/63 83 95 19 98% RA 14:25 10/19/2024 90/63 72 111 16 99% 98.1 F 0 1 of 1 Normal [facility] Magnesium SerPl-mCncon 10-20 Magnesium [Mass/Vol] 1.7 mg/dL Normal 1.6-2.6 [facility] Comment on above: Order Comment: Speci men Type: BLOOD SPECIMEN Ordering Facility: [facility] Address: [facility] [place] [address] Performed By: #### 4 [id number] #### [facility] CLIA [id number] NUTRITIONon 10-20-2024 NUTRITION HNO ID: [id number] Author: MOUNIKA SARABIA RD Service: ? Author Type: Registered Dietitian Type: Nutrition Filed: 10/20/2024 15:19 Note Text: NUTRITION THERAPY INITIAL ASSESSMENT SERVICE DATE: 10/20/2024 SERVICE TIME: Start Time: 1251 REASON: [facility] Nutrition Assessment: Recommended Malnutrition Diagnosis: Mild Protein-Calorie Malnutrition In the context of: Acute Illness or Injury Based on: Unintentional Weight Loss Nutrition Diagnosis: Problem: Suboptimal protein/energy intake Related to: Acute illness As evidenced by: Medical condition, Weight loss, Food/nutrition related history Care Plan: Continue current diet Supplements: Powerade Zero Oral Rehydration Solution Monitor and Evaluation: Meet greater than 75% of estimated needs, Monitor fluid/electrolyte balance, Monitor labs, I/Os, vital signs, weight, Monitor bowel function Discharge Recommendations: Diet, Oral Supplements Diet: Regular Oral Supplements: ORS of choice, prn HPI: Admitted for GI evaluation 2/2 chronic diarrhea since jejunostomy placement. PMH bipolar disorder, iron deficiency anemia, vitamin D deficiency, acute mesenteric ischemia, SMA occlusion, SBS s/p SBR, hx of TPN. -GI following -abnormal lytes noted Intake History: Nutrition Intake Prior to Admission: Greater than 75% estimated energy needs (pt reports good appetite since d/c 10/12, consuming at least 2-3 meals/day) greater than or equal to 5 days Current Nutrition Intake: Greater than 75% estimated energy needs (per I/O's: 75-100% x 2 meals recorded since admit) Current Intake Over time: (< 1 day LOS) Dosing Weight: 87.3 kg (192 lb 7.4 oz) Dosing Weight Type: Admit weight Estimated kilocalorie needs: 1849 - 2049 Calorie Calculation Method: Cottle-St. Jeor (with activity factor) Estimated protein needs (grams): 120 - 130 Grams protein determined by: (>/= 2.0 g/kg IBW) Diet Orders (From admission, onward) Start Ordered 10/19/242314 DIET REGULAR START NOW Question: Tray Precautions Answer: TRAY PRECAUTIONS NOT REQUIRED 10/19/242318 Anthropometrics: Height: 170.2 cm (5' 7) Weight: 87.3 kg (192 lb 7.4 oz) Usual Weight: 98.2 kg (216 lb 7.9 oz) 08/16/24 Usual Weight Obtained From: Chart Review Body mass index is 30.14 kg/m?. Weight change percentage over time: 11.1% wt loss x 2mths Weight Change: Clinically significant weight loss Physical Exam: Subcutaneous fat loss: No Subcutaneous Fat Loss Muscle loss: No Muscle Loss Potential micronutrient deficiency: Teeth Edema/Ascites: No edema GI Symptoms: Diarrhea Ostomy Amount: Elevated Functional Status: Unable to assess Potential Signs of Inflammation: Hyperglycemia Lines, Drains, and Airways Drain Duration Small Bowel Ostomy 08/22/24 LLQ 58 days MNT Billing: $ Routine Care : 1 unit Time Spent (mins): 5 SIGNATURE: Mounika Sarabia RD PATIENT NAME: Daly Evans DATE: October 20, 2024 TIME: 2:59 PM Normal [facility] TSH SerPl-aCncon 10-20-2024 TSH Qn 2.798 m[IU]/L Normal 0.358-3.740 [facility] Comment on above: Order Comment: Speci men Type: BLOOD SPECIMEN Ordering Facility: [facility] Address: [address] [place] [address] Result Comment: 3rd generation ultra sensitive TSH. Performed By: #### 4 5066-8 #### [facility] CLIA [id number] [address] [place] [address] [place] BMP with eGFRon 10-19-2024 AGE 39 years Normal [facility] Comment on above: Performed By: #### 2 32086 #### [facility],[address] [place] [address] 41958 Anion gap [Moles/Vol] 17 mmol/L Normal 10 - 20 [facility] Comment on above: Performed By: #### 2 73966 #### [facility],[address] [place] [address] 40461 BMP with eGFR Normal [facility] Comment on above: Result Comment: BASI C METABOLIC PANEL Performed By: #### 2 39149 #### [facility],[address] [place] [address] Calcium [Mass/Vol] 9.8 mg/dL Normal 8.5 - 10.1 [facility] Comment on above: Result Comment: CALC IUM REPEATED Performed By: #### 2 23074 #### [facility],[address] [place] [address] Chloride [Moles/Vol] 97 mmol/L Low 98 - 107 [facility] Comment on above: Performed By: #### 2 90754 #### [facility],[address] [place] [address] CO2 [Moles/Vol] 23.4 mmol/L Normal 21.0 - 32.0 [facility] Comment on above: Performed By: #### 2 79197 #### [facility],[address] [place], [place] [id number] Creatinine [Mass/Vol] 1.44 mg/dL High 0.55 - 1.02 [facility] Comment on above: Performed By: #### 2 72529 #### [facility],[address] [place], [place] [id number] eGFR 40 ML/MINUTE Low 60 - 999 [facility] Comment on above: Performed By: #### 2 11918 #### [facility],[address] [place] [address] 82507 eGFR(AA) 49 ML/MINUTE Low 60 - 999 [facility] Comment on above: Result Comment: ACCO RDING TO THE NATIONAL KIDNEY DISEASE EDUCATION PROGRAM(NKDE), A NORMAL eGFR IS A VALUE GREATER THAN OR EQUAL TO 60 ML/MIN/1.73 SQ METERS. CHRONIC KIDNEY DISEASE: <60mL/MIN/1.73 SQ METERS KIDNEY FAILURE: <15mL/MIN/1.73 SQ METERS THIS TEST SHOULD ONLY BE USED FOR PATIENTS 18 YEARS OF AGE AND OLDER. Performed By: #### 2 68655 #### [facility],[address] [place] [address] 29908 Glucose [Mass/Vol] 108 mg/dL High 74 - 106 [facility] Comment on above: Performed By: #### 2 64605 #### [facility],[address] [place] [address] 48677 Potassium [Moles/Vol] 3.0 mmol/L Low 3.5 - 5.1 [facility] Comment on above: Performed By: #### 2 70239 #### [facility],[address] [place] [address] 58088 Sodium [Moles/Vol] 134 mmol/L Low 136 - 145 [facility] Comment on above: Performed By: #### 2 54821 #### [facility],[address] [place] [address] 45182 Urea nitrogen [Mass/Vol] 19 mg/dL High 7 - 18 [facility] Comment on above: Performed By: #### 2 86754 #### [facility],[address] [place] [address] 43171 CBC + DIFFon 10-19-2024 Baso # 0.07 x10EE3/UL Normal 0.00 - 0.10 [facility] Comment on above: Performed By: #### 2 06689 ####[facility],[address] [place] [address] 62278 Basophils/100 WBC (Bld) 0.6 % Normal 0.0 - 2.0 [facility] Comment on above: Performed By: #### 2 08211 ####[facility],[address] [place], [place] [id number] CBC + DIFF Normal [facility] Comment on above: Result Comment: CBC- COMPLETE BLOOD COUNT Performed By: #### 2 13610 ####[facility],[address] [place] [address] 96676 EO # 0.06 x10EE3/UL Normal 0.00 - 0.50 [facility] Comment on above: Performed By: #### 2 32185 ####[facility],[address] [place], [place] [address] Eosinophils/100 WBC (Bld) 0.5 % Normal 0.0 - 7.0 [facility] Comment on above: Performed By: #### 2 09894 ####[facility],[address] [place] [address] Erythrocyte distribution width (RBC) [Ratio] 16.3 % High 12.0 - 15.6 [facility] Comment on above: Performed By: #### 2 97830 ####[facility],[address] [place] [address] Hematocrit (Bld) [Volume fraction] 38.0 % Normal 34.0 - 46.0 [facility] Comment on above: Performed By: #### 2 27896 ####[facility],[address] [place], [place] [id number] Hemoglobin (Bld) [Mass/Vol] 12.6 g/dL Normal 12.0 - 16.0 [facility] Comment on above: Performed By: #### 2 70662 ####[facility],[address] [place] [address] 05783 Lymph # 2.40 x10EE3/UL Normal 0.80 - 2.80 [facility] Comment on above: Performed By: #### 2 63929 ####[facility],[address],[place] [address] Lymphocytes/100 WBC (Bld) 20.0 % Normal 20.0 - 45.0 [facility] Comment on above: Performed By: #### 2 80590 ####[facility],[address] [place] [address] MANUAL DIFF N/A Normal [facility] Comment on above: Performed By: #### 2 77763 ####[facility],[address] [place] [address] MCH (RBC) [Entitic mass] 25 pg Low 27 - 33 [facility] Comment on above: Performed By: #### 2 11891 ####[facility],[address] [place] [address] MCHC 33 X10 3 Normal 32 - 36 [facility] Comment on above: Performed By: #### 2 43583 ####[place] [address] MCV (RBC) [Entitic vol] 74 fL Low 80 - 99 [facility] Comment on above: Performed By: #### 2 93871 ####[facility],[address] [place] [address] Foster # 0.86 x10EE3/UL Normal 0.20 - 1.00 [facility] Comment on above: Performed By: #### 2 35738 ####[facility],[address] [place] [address] MONOS % 7.2 % Normal 0.0 - 10.0 [facility] Comment on above: Performed By: #### 2 15092 ####[place] [id number] Morphology Stan (Bld) [Interp] SEE BELOW Normal [facility] Comment on above: Performed By: #### 2 91753 ####[facility],[address] [place] [address] Neut # 8.62 x10EE3/UL High 1.50 - 7.10 [facility] Comment on above: Performed By: #### 2 76520 ####[facility],[address] [place] [address] 60149 Neutrophils/100 WBC (Bld) 71.8 % Normal 46.0 - 76.0 [facility] Comment on above: Performed By: #### 2 68226 ####[facility],[address] [place] [address] 22225 PLATELET 804 x10EE3/UL High 150 - 450 [facility] Comment on above: Performed By: #### 2 69936 ####[facility],[address] [place] [address] 64546 Platelet mean volume (Bld) [Entitic vol] 7.9 fL Normal 6.6 - 10.5 [facility] Comment on above: Result Comment: AUTO MATED DIFFERENTIAL Performed By: #### 2 66594 ####[facility],[address] [place] [address] 01936 PLT EST INCREASED Normal [facility] Comment on above: Performed By: #### 2 00976 ####[facility],[address] [place] [address] 82212 RBC 5.12 x 10EE6/UL Normal 4.10 - 5.30 [facility] Comment on above: Performed By: #### 2 84682 ####[facility],[address] [place] [address] 41842 WBC 12.0 x 10EE3/UL High 4.5 - 10.8 [facility] Comment on above: Performed By: #### 2 98791 ####[facility],[address] [place] [address] 48606 CMP with eGFRon 10-19-2024 AGE 39 years Normal [facility] Comment on above: Performed By: #### 2 85665 ####[facility],[address] [place] [address] 17437 Albumin [Mass/Vol] 3.5 g/dL Normal 3.4 - 5.0 [facility] Comment on above: Performed By: #### 2 57114 ####[facility],[address] [place] [address] 17395 Albumin/Globulin [Mass ratio] 0.6 {ratio} Low 0.9 - 1.6 [facility] Comment on above: Performed By: #### 2 24218 ####[facility],[address] [place] [address] 84291 ALK PHOS 170 U/L High 46 - 116 [facility] Comment on above: Performed By: #### 2 91692 ####[facility],[address] [place] [address] 44831 ALT [Catalytic activity/Vol] 37 U/L Normal 16 - 63 [facility] Comment on above: Performed By: #### 2 13478 ####[facility],[address] [place] [address] 67809 Anion gap [Moles/Vol] 17 mmol/L Normal 10 - 20 [facility] Comment on above: Performed By: #### 2 78440 ####[facility],[address] [place] [address] 16218 AST [Catalytic activity/Vol] 30 U/L Normal 13 - 39 [facility] Comment on above: Performed By: #### 2 52690 ####[facility],[address] [place] [address] 44534 B/C RATIO 10 ratio Normal 0 - 30 [facility] Comment on above: Performed By: #### 2 46197 ####[facility],[address] [place] [address] 71500 Bilirubin [Mass/Vol] 1.1 mg/dL High 0.2 - 1.0 [facility] Comment on above: Performed By: #### 2 14907 ####[facility],[address] [place] [address] 24164 Calcium [Mass/Vol] 9.7 mg/dL Normal 8.5 - 10.1 [facility] Comment on above: Performed By: #### 2 85581 ####[facility],[address] [place], [place] [phone] Chloride [Moles/Vol] 92 mmol/L Low 98 - 107 [facility] Comment on above: Performed By: #### 2 73042 ####[facility],[address] [place] [address] CMP with eGFR Normal [facility] Comment on above: Result Comment: COMP REHENSIVE METABOLIC PANEL Performed By: #### 2 82558 ####[place] [address] CO2 [Moles/Vol] 24.6 mmol/L Normal 21.0 - 32.0 [facility] Comment on above: Performed By: #### 2 53953 ####[facility],[address] [place], [place] [address] Creatinine [Mass/Vol] 2.18 mg/dL High 0.55 - 1.02 [facility] Comment on above: Performed By: #### 2 45195 ####[facility],[address] [place], [place] [phone] eGFR 25 ML/MINUTE Low 60 - 999 [facility] Comment on above: Performed By: #### 2 82249 ####[facility],[address] [place], [place] [phone] eGFR(AA) 30 ML/MINUTE Low 60 - 999 [facility] Comment on above: Result Comment: ACCO RDING TO THE NATIONAL KIDNEY DISEASE EDUCATION PROGRAM(NKDE), A NORMAL eGFR IS A VALUE GREATER THAN OR EQUAL TO 60 ML/MIN/1.73 SQ METERS. CHRONIC KIDNEY DISEASE: <60mL/MIN/1.73 SQ METERS KIDNEY FAILURE: <15mL/MIN/1.73 SQ METERS THIS TEST SHOULD ONLY BE USED FOR PATIENTS 18 YEARS OF AGE AND OLDER. Performed By: #### 2 93163 ####[facility],[address] [place] [address] 07411 Globulin (S) [Mass/Vol] 6.0 g/dL High 1.5 - 3.8 [facility] Comment on above: Performed By: #### 2 98617 ####[facility],[address] [place] [address] 33206 Glucose [Mass/Vol] 146 mg/dL High 74 - 106 [facility] Comment on above: Performed By: #### 2 33150 ####[facility],[address] [place] [address] 09477 Potassium [Moles/Vol] 3.3 mmol/L Low 3.5 - 5.1 [facility] Comment on above: Performed By: #### 2 22036 ####[facility],[address] [place] [address] 26806 Protein [Mass/Vol] 9.5 g/dL High 6.4 - 8.2 [facility] Comment on above: Performed By: #### 2 87061 ####[facility],[address] [place] [address] 78582 Sodium [Moles/Vol] 130 mmol/L Low 136 - 145 [facility] Comment on above: Performed By: #### 2 70179 ####[facility],[address] [place] [address] 30004 Urea nitrogen [Mass/Vol] 21 mg/dL High 7 - 18 [facility] Comment on above: Performed By: #### 2 25935 ####[facility],[address] [place] [address] 15327 HISTORY PHYSICALon HISTORY PHYSICAL HNO ID: [id number] Author: MICHAEL ELLIS MD Service: Hospital Medicine Author Type: Physician Type: H&P Filed: 10/19/2024 23:29 Note Text: HISTORY AND PHYSICAL EXAMINATION PATIENT NAME: Daly Evans SERVICE DATE AND TIME: 10/19/2024 11:22 PM PRIMARY CARE PHYSICIAN: Fredrick Boland DO CHIEF COMPLAINT: Persistent stools since having ileostomy placed at [facility] HPI: The patient is a 39-year-old female with a past medical history of bipolar disorder, generalized anxiety/panic disorder, iron deficiency anemia, vitamin D deficiency, tobacco abuse, polysubstance abuse with a history of suicide attempt and presented to [facility] 08/20/2024 with severe abdominal pain and was found to have 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 She was on TPN through a PICC line until 2 weeks ago. Due to her persistent diarrhea she was sent to the outside ER. The outside ER contacted her surgeon at the [facility] who felt patient could safely be admitted to our hospital for evaluation and treatment by GI services that she has sent to our hospital. ASSESSMENT/PLAN: PRINCIPLE PROBLEM: 1. Chronic diarrhea - Check stool cultures including for C. difficile - Regular diet - Imodium as needed - Consult GI -IV fluids ADDITIONAL PROBLEMS: 2. Hyponatremia/hypokalemia -Check magnesium level - Corrected IV fluids and p.o. potassium - Recheck a BMP in a.m. 3. Anemia -Hemoglobin 12.6 at outside hospital -Improved from 10.110 days ago. - Mild and stable - No signs or symptoms of active bleeding 4. JONATAN - Creatinine 2.18 which is increased from 1.4 earlier the same day. Creatinine available to nm 10 days ago as was 0.83 - Hydration - Monitor urine output - Avoid nephrotoxins - Recheck BMP in a.m. 5. Bipolar disorder - Continue home meds as before admission 6. History of DVT lower extremities - Continue anticoagulation with Lovenox 80 mg SQ twice daily for 7. DVT ASSESSMENT -:Encourage early and ongoing ambulation/mobility as appropriate and tolerated by patient Already adequately anti-coagulated with home medication Lovenox FLUIDS/ELECTROLYTES/DIET: Regular diet NS @150cc/hr DEVICES PRESENT ON ADMISSION: Peripheral IV Ostomy BMI: Body mass index is 29.83 kg/m?. 25-29.9 (Overweight- E66.3) ISOLATION OR OTHER SPECIAL CONSIDERATIONS: Does not need Isolation. ACTIVITY AT HOME: Independent Lives in a SNF ACTIVITY ON ADMISSION: Up as tolerated WOUNDS/PRESSURE INJURIES POA: None DISPOSITION AT DISCHARGE: SNF CODE STATUS: Code status not discussed during this exam and evaluation. Please Note: Additional external medical records were reviewed from the EMR and/or those that accompanied the patient, including labs, imaging and test results. I have also reviewed the patients prescription fill history for the past six months. PAST MEDICAL HISTORY Diagnosis Date Attempted suicide (HCC) polysubstance Bipolar depression (HCC) [facility] Gestational diabetes mellitus in ([facility]) Impaired fasting blood sugar 06/2015 a1c 5.7% at diagnosis Iron deficiency anemia Vitamin D deficiency PAST SURGICAL HISTORY Procedure Laterality Date CARPAL TUNNEL bilateral DELIVERY ONLY 08/05/2012 LAPAROSCOPY SURG CHOLECYSTECTOMY 07/01/2018 Cholecystectomy, lap PAST SURGICAL HISTORY OF 08/26/2024 INSERTION TUNNELED CV CATH PAST SURGICAL HISTORY OF 08/23/2024 REPAIR SIMPLE SUPERFICIAL WOUND ABDOMEN PAST SURGICAL HISTORY OF 08/22/2024 ENTETECTOMY RESECTION small intestine w/ enterostomy PAST SURGICAL HISTORY OF 08/20/2024 Embolectomy popliteal FAMILY HISTORY Problem Relation Age of Onset Lipids Mother Headache Mother migraine other (back pain) Mother Hypertension Father Heart Father atrial fib Thyroid Father other (aortic aneurysm) Father Psychiatry Brother Diabetes Maternal Grandmother Diabetes Maternal Uncle Diabetes Maternal Uncle Diabetes Maternal Uncle Diabetes Maternal Uncle Aneurysm No Family History Social History Tobacco Use Smoking status: Former Current packs/day: 0.00 Types: Cigarettes Quit date: 04/13/2015 Years since quittin.5 Smokeless tobacco: Never Tobacco comments: Pateint only uses the Vape She doesnt smoke nicotine Patient quit (more content not included)... Normal [facility] MAGNESIUMon 10-19-2024 Magnesium [Mass/Vol] 1.9 mg/dL Normal 1.8 - 2.4 [facility] Comment on above: Performed By: #### 2 58748 #### [facility],[address] [place] [address] TROPONINon 10-19-2024 HS TROPONIN 4.1 pg/mL Normal 0.0 - 51.4 [facility] Comment on above: Performed By: #### 2 11219 #### [facility],[address] [place] [address] 62748 BMP with eGFRon 10-16-2024 AGE 39 years Normal [facility] Comment on above: Performed By: #### 2 98813 #### [facility],[address] [place] [address] 79814 Anion gap [Moles/Vol] 14 mmol/L Normal 10 - 20 [facility] Comment on above: Performed By: #### 2 28213 #### [facility],[address] [place] [address] 05115 BMP with eGFR Normal [facility] Comment on above: Result Comment: BASI C METABOLIC PANEL Performed By: #### 2 47633 #### [facility],[address] [place] [address] 97812 Calcium [Mass/Vol] 8.7 mg/dL Normal 8.5 - 10.1 [facility] Comment on above: Performed By: #### 2 11152 #### [facility],[address] [place] [address] 42338 Chloride [Moles/Vol] 99 mmol/L Normal 98 - 107 [facility] Comment on above: Performed By: #### 2 67315 #### [facility],[address] [place] [address] 39610 CO2 [Moles/Vol] 24.5 mmol/L Normal 21.0 - 32.0 [facility] Comment on above: Performed By: #### 2 90756 #### [facility],[address] [place] [address] 09095 Creatinine [Mass/Vol] 1.16 mg/dL High 0.55 - 1.02 [facility] Comment on above: Performed By: #### 2 37156 #### [facility],[address] [place] [address] 35181 eGFR 51 ML/MINUTE Low 60 - 999 [facility] Comment on above: Performed By: #### 2 59213 #### [facility],[address] [place] [address] 64080 GFR/1.73 sq M.predicted among non-blacks MDRD (S/P/Bld) [Vol rate/Area] mL/min/{1.73_m2} Normal 60 - 999 [facility] Comment on above: Result Comment: ACCO RDING TO THE NATIONAL KIDNEY DISEASE EDUCATION PROGRAM(NKDE), A NORMAL eGFR IS A VALUE GREATER THAN OR EQUAL TO 60 ML/MIN/1.73 SQ METERS. CHRONIC KIDNEY DISEASE: <60mL/MIN/1.73 SQ METERS KIDNEY FAILURE: <15mL/MIN/1.73 SQ METERS THIS TEST SHOULD ONLY BE USED FOR PATIENTS 18 YEARS OF AGE AND OLDER. Performed By: #### 2 06713 #### [facility],[address] [place] [address] 11984 Glucose [Mass/Vol] 97 mg/dL Normal 74 - 106 [facility] Comment on above: Performed By: #### 2 55772 #### [address] [address] Potassium [Moles/Vol] 3.2 mmol/L Low 3.5 - 5.1 [facility] Comment on above: Performed By: #### 2 48262 #### [facility],[address] [place] [address] 55145 Sodium [Moles/Vol] 134 mmol/L Low 136 - 145 [facility] Comment on above: Performed By: #### 2 08092 #### [address] [address] Urea nitrogen [Mass/Vol] 22 mg/dL High 7 - 18 [facility] Comment on above: Performed By: #### 2 33850 #### [facility],[address] [place] [address] 80815 CBC + DIFFon 10-16-2024 Baso # 0.02 x10EE3/UL Normal 0.00 - 0.10 [facility] Comment on above: Performed By: #### 2 21585 #### [facility],[address] [place] [address] 84540 Basophils/100 WBC (Bld) 0.4 % Normal 0.0 - 2.0 [facility] Comment on above: Performed By: #### 2 66318 #### [facility],[address] [place] [address] CBC + DIFF Normal [facility] Comment on above: Result Comment: CBC- COMPLETE BLOOD COUNT Performed By: #### 2 46623 #### [facility],[address] [place] [address] EO # 0.15 x10EE3/UL Normal 0.00 - 0.50 [facility] Comment on above: Performed By: #### 2 71649 #### [facility],[address] [place] [address] Eosinophils/100 WBC (Bld) 2.3 % Normal 0.0 - 7.0 [facility] Comment on above: Performed By: #### 2 04324 #### [facility],[address] [place] [address] Erythrocyte distribution width (RBC) [Ratio] 16.1 % High 12.0 - 15.6 [facility] Comment on above: Performed By: #### 2 66955 #### [facility],[address] [place] [address] Hematocrit (Bld) [Volume fraction] 31.0 % Low 34.0 - 46.0 [facility] Comment on above: Performed By: #### 2 01693 #### [facility],[address] [place] [address] Hemoglobin (Bld) [Mass/Vol] 10.3 g/dL Low 12.0 - 16.0 [facility] Comment on above: Performed By: #### 2 69437 #### [facility],[address] [place] [address] 87729 Lymph # 2.20 x10EE3/UL Normal 0.80 - 2.80 [facility] Comment on above: Performed By: #### 2 51609 #### [facility],[address] [place] [address] 55898 Lymphocytes/100 WBC (Bld) 33.9 % Normal 20.0 - 45.0 [facility] Comment on above: Performed By: #### 2 25811 #### [facility],[address] [place] [address] 76237 MANUAL DIFF N/A Normal [facility] Comment on above: Performed By: #### 2 70119 #### [facility],[address] [place] [address] 96932 MCH (RBC) [Entitic mass] 24 pg Low 27 - 33 [facility] Comment on above: Performed By: #### 2 80881 #### [facility],[address] [place] [address] 75225 MCHC 33 X10 3 Normal 32 - 36 [facility] Comment on above: Performed By: #### 2 68686 #### [facility],[address] [place] [address] 26189 MCV (RBC) [Entitic vol] 73 fL Low 80 - 99 [facility] Comment on above: Performed By: #### 2 37627 #### [facility],[address] [place] [address] 85942 Foster # 0.66 x10EE3/UL Normal 0.20 - 1.00 [facility] Comment on above: Performed By: #### 2 12204 #### [facility],[address] [place] [address] 58810 MONOS % 10.2 % High 0.0 - 10.0 [facility] Comment on above: Performed By: #### 2 89237 #### [facility],[address] [place] [address] 32489 Morphology Stan (Bld) [Interp] N/A Normal [facility] Comment on above: Performed By: #### 2 12189 #### [facility],[address] [place] [address] 06608 Neut # 3.46 x10EE3/UL Normal 1.50 - 7.10 [facility] Comment on above: Performed By: #### 2 35146 #### [facility],[address] [place] [address] 74943 Neutrophils/100 WBC (Bld) 53.3 % Normal 46.0 - 76.0 [facility] Comment on above: Performed By: #### 2 31359 #### [facility],[address] [place] [address] 19841 PLATELET 516 x10EE3/UL High 150 - 450 [facility] Comment on above: Performed By: #### 2 46671 #### [facility],[address] [place] [address] 57527 Platelet mean volume (Bld) [Entitic vol] 7.2 fL Normal 6.6 - 10.5 [facility] Comment on above: Result Comment: AUTO MATED DIFFERENTIAL Performed By: #### 2 29886 #### [facility],[address] [place] [address] 69763 RBC 4.23 x 10EE6/UL Normal 4.10 - 5.30 [facility] Comment on above: Performed By: #### 2 15374 #### [facility],[address] [place] [address] 73541 WBC 6.5 x 10EE3/UL Normal 4.5 - 10.8 [facility] Comment on above: Performed By: #### 2 13582 #### [facility],[address] [place] [address] 57593 CBC + DIFFon 10-15-2024 Baso # 0.04 x10EE3/UL Normal 0.00 - 0.10 [facility] Comment on above: Performed By: #### 2 28783 #### [facility],[address] [place], [place] [address] Basophils/100 WBC (Bld) 0.5 % Normal 0.0 - 2.0 [facility] Comment on above: Performed By: #### 2 32996 #### [facility],[address] [place] [address] CBC + DIFF Normal [facility] Comment on above: Result Comment: CBC- COMPLETE BLOOD COUNT Performed By: #### 2 03973 #### [facility],[address] [place] [address] EO # 0.15 x10EE3/UL Normal 0.00 - 0.50 [facility] Comment on above: Performed By: #### 2 46264 #### [facility],[address] [place] [address] Eosinophils/100 WBC (Bld) 1.9 % Normal 0.0 - 7.0 [facility] Comment on above: Performed By: #### 2 69312 #### [facility],[address] [place] [address] Erythrocyte distribution width (RBC) [Ratio] 16.6 % High 12.0 - 15.6 [facility] Comment on above: Performed By: #### 2 89210 #### [facility],[address] [place] [address] Hematocrit (Bld) [Volume fraction] 36.9 % Normal 34.0 - 46.0 [facility] Comment on above: Performed By: #### 2 00832 #### [facility],[address] [place] [address] Hemoglobin (Bld) [Mass/Vol] 12.3 g/dL Normal 12.0 - 16.0 [facility] Comment on above: Result Comment: TEST REPEATED Performed By: #### 2 36936 #### [facility],[address] [place] [address] 16818 Lymph # 2.93 x10EE3/UL High 0.80 - 2.80 [facility] Comment on above: Performed By: #### 2 04887 #### [facility],[address] [place] [address] 29704 Lymphocytes/100 WBC (Bld) 37.1 % Normal 20.0 - 45.0 [facility] Comment on above: Performed By: #### 2 42433 #### [facility],[address] [place] [address] 45595 MANUAL DIFF N/A Normal [facility] Comment on above: Performed By: #### 2 70719 #### [facility],[address] [place] [address] 61178 MCH (RBC) [Entitic mass] 25 pg Low 27 - 33 [facility] Comment on above: Performed By: #### 2 06972 #### [facility],[address] [place] [address] 76224 MCHC 33 X10 3 Normal 32 - 36 [facility] Comment on above: Performed By: #### 2 99190 #### [facility],[address] [place] [address] 35327 MCV (RBC) [Entitic vol] 75 fL Low 80 - 99 [facility] Comment on above: Performed By: #### 2 29568 #### [facility],[address] [place] [address] 01531 Foster # 0.58 x10EE3/UL Normal 0.20 - 1.00 [facility] Comment on above: Performed By: #### 2 73043 #### [facility],[address] [place] [address] 87455 MONOS % 7.3 % Normal 0.0 - 10.0 [facility] Comment on above: Performed By: #### 2 81039 #### [facility],[address] [place] [address] 85800 Morphology Stan (Bld) [Interp] N/A Normal [facility] Comment on above: Performed By: #### 2 29167 #### [facility],[address] [place] [address] 75788 Neut # 4.21 x10EE3/UL Normal 1.50 - 7.10 [facility] Comment on above: Performed By: #### 2 45980 #### [facility],[address] [place] [address] 87119 Neutrophils/100 WBC (Bld) 53.3 % Normal 46.0 - 76.0 [facility] Comment on above: Performed By: #### 2 83708 #### [facility],[address] [place] [address] 78071 PLATELET 562 x10EE3/UL High 150 - 450 [facility] Comment on above: Performed By: #### 2 51542 #### [facility],[address] [place] [address] 58796 Platelet mean volume (Bld) [Entitic vol] 8.2 fL Normal 6.6 - 10.5 [facility] Comment on above: Result Comment: AUTO MATED DIFFERENTIAL Performed By: #### 2 95445 #### [facility],[address] [place] [address] 94913 RBC 4.92 x 10EE6/UL Normal 4.10 - 5.30 [facility] Comment on above: Performed By: #### 2 18148 #### [facility],[address] [place] [address] 27742 WBC 7.9 x 10EE3/UL Normal 4.5 - 10.8 [facility] Comment on above: Performed By: #### 2 46142 #### [facility],[address] [place] [address] 15765 CMP with eGFRon 10-15-2024 AGE 39 years Normal [facility] Comment on above: Performed By: #### 2 76797 #### [facility],[address] [place] [address] 77064 Albumin [Mass/Vol] 2.9 g/dL Low 3.4 - 5.0 [facility] Comment on above: Performed By: #### 2 25398 #### [facility],[address] [place] [address] 45348 Albumin/Globulin [Mass ratio] 0.5 {ratio} Low 0.9 - 1.6 [facility] Comment on above: Performed By: #### 2 42746 #### [facility],[address] [place] [address] 44414 ALK PHOS 151 U/L High 46 - 116 [facility] Comment on above: Performed By: #### 2 85701 #### [facility],[address] [place] [address] 12727 ALT [Catalytic activity/Vol] 45 U/L Normal 16 - 63 [facility] Comment on above: Performed By: #### 2 09210 #### [facility],[address] [place] [address] 74005 Anion gap [Moles/Vol] 21 mmol/L High 10 - 20 [facility] Comment on above: Performed By: #### 2 24120 #### [facility],[address] [place] [address] 39574 AST [Catalytic activity/Vol] 30 U/L Normal 13 - 39 [facility] Comment on above: Performed By: #### 2 07151 #### [facility],[address] [place] [address] 06922 B/C RATIO 19 ratio Normal 0 - 30 [facility] Comment on above: Performed By: #### 2 54905 #### [facility],[address] [place] [address] 29801 Bilirubin [Mass/Vol] 0.9 mg/dL Normal 0.2 - 1.0 [facility] Comment on above: Performed By: #### 2 20996 #### [facility],[address] [place] [address] 86011 Calcium [Mass/Vol] 9.4 mg/dL Normal 8.5 - 10.1 [facility] Comment on above: Result Comment: RESU LTS REPEATED AND VERIFIED Performed By: #### 2 35810 #### [facility],[address] [place] [address] 17922 Chloride [Moles/Vol] 94 mmol/L Low 98 - 107 [facility] Comment on above: Performed By: #### 2 38671 #### [facility],[address] [place] [address] 12562 CMP with eGFR Normal [facility] Comment on above: Result Comment: COMP REHENSIVE METABOLIC PANEL Performed By: #### 2 30350 #### [facility],[address] [place] [address] 28865 CO2 [Moles/Vol] 20.9 mmol/L Low 21.0 - 32.0 [facility] Comment on above: Result Comment: RESU LTS REPEATED AND VERIFIED Performed By: #### 2 87594 #### [facility],[address] [place] [address] 47560 Creatinine [Mass/Vol] 1.49 mg/dL High 0.55 - 1.02 [facility] Comment on above: Result Comment: RESU LTS REPEATED AND VERIFIED Performed By: #### 2 44754 #### [facility],[address] [place] [address] 20636 eGFR 39 ML/MINUTE Low 60 - 999 [facility] Comment on above: Performed By: #### 2 22935 #### [facility],[address] [place] [address] 65641 eGFR(AA) 47 ML/MINUTE Low 60 - 999 [facility] Comment on above: Result Comment: ACCO RDING TO THE NATIONAL KIDNEY DISEASE EDUCATION PROGRAM(NKDE), A NORMAL eGFR IS A VALUE GREATER THAN OR EQUAL TO 60 ML/MIN/1.73 SQ METERS. CHRONIC KIDNEY DISEASE: <60mL/MIN/1.73 SQ METERS KIDNEY FAILURE: <15mL/MIN/1.73 SQ METERS THIS TEST SHOULD ONLY BE USED FOR PATIENTS 18 YEARS OF AGE AND OLDER. Performed By: #### 2 12210 #### [facility],[address] [place] [address] 28743 Globulin (S) [Mass/Vol] 5.8 g/dL High 1.5 - 3.8 [facility] Comment on above: Performed By: #### 2 03546 #### [address] [address] Glucose [Mass/Vol] 101 mg/dL Normal 74 - 106 [facility] Comment on above: Performed By: #### 2 42524 #### [address] [address]805 Potassium [Moles/Vol] 3.4 mmol/L Low 3.5 - 5.1 [facility] Comment on above: Performed By: #### 2 94814 #### [address] 76994 Protein [Mass/Vol] 8.7 g/dL High 6.4 - 8.2 [facility] Comment on above: Performed By: #### 2 46300 #### [facility],[address] [place] [address] 91779 Sodium [Moles/Vol] 132 mmol/L Low 136 - 145 [facility] Comment on above: Performed By: #### 2 98132 #### [address] 83539 Urea nitrogen [Mass/Vol] 29 mg/dL High 7 - 18 [facility] Comment on above: Performed By: #### 2 85589 #### [address] 96553 HEMOGLOBIN A1C (POM)on 10-15 Glucose [Mass/Vol] 131.2 mg/dL High 0.0 - 0.0 [facility] Comment on above: Result Comment: BLDo HEMOGLOBIN A1C REFERENCE RANGESBLDo Suggested Diagnosis HbA1c(%) HbA1C (mmol/mol Diabetic >/=6.5 >/=48 Prediabetes 5.7 - 6.4 39 - 47 Normal <5.7 <39 Performed By: #### 2 20179 #### [facility],[address] [place], [place] [address] HbA1c (Bld) [Mass fraction] 6.2 % Normal 0.0 - 6.5 [facility] Comment on above: Performed By: #### 2 10683 #### [facility],[address] [place] [address] 27819 LIPID PROFILEon 10-15-2024 Cholesterol [Mass/Vol] 88 mg/dL Normal 0 - 240 [facility] Comment on above: Performed By: #### 2 85254 #### [facility],[address] [place] [address] 31094 Cholesterol in HDL [Mass/Vol] 66 mg/dL High 40 - 60 [facility] Comment on above: Performed By: #### 2 30792 #### [facility],[address] [place] [address] 05782 Cholesterol in LDL [Mass/Vol] 8 mg/dL Normal 0 - 129 [facility] Comment on above: Performed By: #### 2 38464 #### [facility],[address] [place] [address] 73349 Cholesterol.total/C holesterol in HDL [Mass ratio] 1.3 {ratio} Normal 0.0 - 5.0 [facility] Comment on above: Performed By: #### 2 13942 #### [facility],[address] [place] [address] 18722 Lipid 1996 panel Normal [facility] Comment on above: Result Comment: LIPI D PROFILE Performed By: #### 2 60812 #### [facility],[address] [place] [address] 20448 Triglyceride [Mass/Vol] 72 mg/dL Normal 0 - 150 [facility] Comment on above: Performed By: #### 2 57465 #### [facility],[address] [place] [address] 78825 HALOPERIDOL [CCL]on 10-14-19 Haloperidol <0.6 Low 5.0-20.0 [facility] Comment on above: Result Comment: INTE RPRETIVE INFORMATION: Haloperidol Level Therapeutic Range: 5.0-20.0 ng/mL Toxic: Greater than 50 ng/mL The therapeutic range is based on serum pre-dose (trough) draw at steady-state concentration. Adverse effects may include drowsiness, blurred vision, tardive dyskinesia, tachycardia, hypotension and muscular rigidity. This test was developed and its performance characteristics determined by [facility]. It has not been cleared or approved by the [place] Food and Drug Administration. This test was performed in a CLIA certified laboratory and is intended for clinical purposes. Performed By: [facility] [address] [place] [address] 09466 Billing Services Manager: Willis Christine MD, PhD CLIA Number: [id number] [place] [address] Jaison Lema III, M.D. [id number] Performed By: #### 2 32039 #### [facility],[address] [place] [address] 98319 Basic metabolic 2000 panelon 10-12-2024 Anion gap [Moles/Vol] 7 mmol/L Normal 5-16 [facility] Comment on above: Order Comment: Speci men Type: BLOOD SPECIMEN Ordering Facility: [facility] Address: [address] [place] [address] 50928 Performed By: #### 4 5066-8 #### [facility] CLIA [id number] [address] [place] [address] [place] Calcium [Mass/Vol] 9.4 mg/dL Normal 8.5-10.5 [facility] Comment on above: Order Comment: Speci men Type: BLOOD SPECIMEN Ordering Facility: [facility] Address: [address] [place] [address] Performed By: #### 4 5066-8 #### [facility] CLIA [id number] [address] [place], [place] [address] [place] Chloride [Moles/Vol] 103 mmol/L Normal 98-107 [facility] Comment on above: Order Comment: Speci men Type: BLOOD SPECIMEN Ordering Facility: [facility] Address: [address] [place] [address] Performed By: #### 4 5066-8 #### [facility] CLIA [id number] [address] [place] [address] [place] CO2 [Moles/Vol] 24 mmol/L Normal 21-32 [facility] Comment on above: Order Comment: Speci men Type: BLOOD SPECIMEN Ordering Facility: [facility] Address: [address] [place] [address] Performed By: #### 4 5066-8 #### [facility] CLIA [id number] [address] [place] [address] [place] Creatinine [Mass/Vol] 0.83 mg/dL Normal 0.51-0.95 [facility] Comment on above: Order Comment: Speci men Type: BLOOD SPECIMEN Ordering Facility: [facility] Address: [address] [place] [address] Result Comment: Marissa ents receiving either N-Acetylcysteine (NAC) or Metamizole prior to venipuncture, may have falsely depressed results. Performed By: #### 4 5066-8 #### [facility] CLIA [id number] [address] [place] [address] [place] Creatinine and Glomerular filtration rate.predicted panel (S/P/Bld) 91 mL/min/1.73m??? Normal >=60 [facility] Comment on above: Order Comment: Speci men Type: BLOOD SPECIMEN Ordering Facility: [facility] Address: [address] [place] [address] Result Comment: Zeny mated Glomerular Filtration Rate (eGFR) is calculated using the 2020 CKD-EPI creatinine equation. This equation utilizes serum creatinine, sex, and age as parameters. The creatinine assay has traceable calibration to isotope dilution-mass spectrometry. Refer to KDIGO guidelines for clinical interpretation. In patients with unstable renal function, e.g. those with acute kidney injury, the eGFR may not accurately reflect actual GFR. Performed By: #### 4 5066-8 #### [facility] CLIA [id number] [address] [place] [address] [place] Glucose [Mass/Vol] 99 mg/dL Normal 70-100 [facility] Comment on above: Order Comment: Specsammie men Type: BLOOD SPECIMEN Ordering Facility: [facility] Address: [address] [place] [address] Result Comment: The [place] [employer] (ADA) provides guidance for cutoff values for fasting glucose and random glucose. The ADA defines fasting as no caloric intake for at least 8 hours. Fasting plasma glucose results between 100 to 125 mg/dL indicate increased risk for diabetes (prediabetes). Fasting plasma glucose results greater than or equal to 126 mg/dL meet the criteria for diagnosis of diabetes. In the absence of unequivocal hyperglycemia, results should be confirmed by repeat testing. In a patient with classic symptoms of hyperglycemia or hyperglycemic crisis, random plasma glucose results greater than or equal to 200 mg/dL meet the criteria for diagnosis of diabetes. Reference: Standards of Medical Care in Diabetes 2016, [place] [employer]. Diabetes Care. 2016.39(Suppl 1). Results may be falsely elevated after the administration of Sulfapyridine. Results may be falsely depressed after the administration of Sulfasalazine. Performed By: #### 4 5066-8 #### [facility] CLIA [id number] [address] [place] [address] [place] Potassium [Moles/Vol] 3.6 mmol/L Normal 3.5-5.1 [facility] Comment on above: Order Comment: Dora finch Type: BLOOD SPECIMEN Ordering Facility: [facility] Address: [address] [place] [address] Performed By: #### 4 5066-8 #### [facility] CLIA [id number] [address] [place] [address] [place] Sodium [Moles/Vol] 134 mmol/L Low 136-145 [facility] Comment on above: Order Comment: Speci men Type: BLOOD SPECIMEN Ordering Facility: [facility] Address: [address] [place] [address] Performed By: #### 4 5066-8 #### [facility] CLIA [id number] [address] [place] [address] [place] Urea nitrogen [Mass/Vol] 7 mg/dL Normal 01-19 [facility] Comment on above: Order Comment: Speci men Type: BLOOD SPECIMEN Ordering Facility: [facility] Address: [address] [place] [address] Performed By: #### 4 5066-8 #### [facility] CLIA [id number] [address] [place] [address] [place] CBC W Auto Differential pane l (Bld)on 10-12-2024 Basophils (Bld) [#/Vol] 0.05 10*3/uL Normal <0.11 [facility] Comment on above: Order Comment: Speci men Type: BLOOD SPECIMEN Ordering Facility: [facility] Address: [address] [place] [address] Performed By: #### 4 5066-8 #### [facility] CLIA [id number] [address] [place] [address] [place] Basophils/100 WBC (Bld) 0.7 % Normal [facility] Comment on above: Order Comment: Speci men Type: BLOOD SPECIMEN Ordering Facility: [facility] Address: [address] [place] [address] Performed By: #### 4 5066-8 #### [facility] CLIA [id number] [address] [place] [address] [place] Differential cell count method Nom (Bld) Auto Normal [facility] Comment on above: Order Comment: Speci men Type: BLOOD SPECIMEN Ordering Facility: [facility] Address: [address] [place] [address] Performed By: #### 4 5066-8 #### [facility] CLIA [id number] [address] [place] [address] [place] Eosinophils (Bld) [#/Vol] 0.14 10*3/uL Normal <0.46 [facility] Comment on above: Order Comment: Speci men Type: BLOOD SPECIMEN Ordering Facility: [facility] Address: [address] [place] [address] Performed By: #### 4 5066-8 #### [facility] CLIA [id number] [address] [place] [address] [place] Eosinophils/100 WBC (Bld) 1.9 % Normal [facility] Comment on above: Order Comment: Speci men Type: BLOOD SPECIMEN Ordering Facility: [facility] Address: [address] [place] [address] Performed By: #### 4 5066-8 #### [facility] CLIA [id number] [address] [place] [address] [place] Erythrocyte distribution width (RBC) [Ratio] 14.6 % Normal 11.5-15.0 [facility] Comment on above: Order Comment: Speci men Type: BLOOD SPECIMEN Ordering Facility: [facility] Address: [address] [place] [address] Performed By: #### 4 5066-8 #### [facility] CLIA [id number] [address] [place] [address] [place] Hematocrit (Bld) [Volume fraction] 33.2 % Low 36.0-46.0 [facility] Comment on above: Order Comment: Speci men Type: BLOOD SPECIMEN Ordering Facility: [facility] Address: [address] [place] [address] Performed By: #### 4 5066-8 #### [facility] CLIA [id number] [address] [place] [address] [place] Hemoglobin (Bld) [Mass/Vol] 10.1 g/dL Low 11.5-15.5 [facility] Comment on above: Order Comment: Speci men Type: BLOOD SPECIMEN Ordering Facility: [facility] Address: [address] [place] [address] Performed By: #### 4 5066-8 #### [facility] CLIA [id number] [address] [place] [address] [place] Immature granulocytes (Bld) [#/Vol] 0.04 10*3/uL Normal <0.10 [facility] Comment on above: Order Comment: Speci men Type: BLOOD SPECIMEN Ordering Facility: [facility] Address: [address] [place] [address] Performed By: #### 4 5066-8 #### [facility] CLIA [id number] [address] [place] [address] [place] Immature granulocytes/100 WBC (Bld) 0.5 % Normal [facility] Comment on above: Order Comment: Speci men Type: BLOOD SPECIMEN Ordering Facility: [facility] Address: [address] [place] [address] Performed By: #### 4 5066-8 #### [facility] CLIA [id number] [address] [place] [address] [place] Lymphocytes (Bld) [#/Vol] 2.84 10*3/uL Normal 1.00-4.00 [facility] Comment on above: Order Comment: Speci men Type: BLOOD SPECIMEN Ordering Facility: [facility] Address: [address] [place] [address] Performed By: #### 4 5066-8 #### [facility] CLIA [id number] [address] [place] [address] [place] Lymphocytes/100 WBC (Bld) 38.4 % Normal [facility] Comment on above: Order Comment: Speci men Type: BLOOD SPECIMEN Ordering Facility: [facility] Address: [address] [place] [address] Performed By: #### 4 5066-8 #### [facility] CLIA [id number] [address] [place] [address] [place] MCH (RBC) [Entitic mass] 24.1 pg Low 26.0-34.0 [facility] Comment on above: Order Comment: Speci men Type: BLOOD SPECIMEN Ordering Facility: [facility] Address: [address] [place] [address] Performed By: #### 4 5066-8 #### [facility] CLIA [id number] [address] [place] [address] [place] MCHC (RBC) [Mass/Vol] 30.4 g/dL Low 30.5-36.0 [facility] Comment on above: Order Comment: Speci men Type: BLOOD SPECIMEN Ordering Facility: [facility] Address: [address] [place] [address] Performed By: #### 4 5066-8 #### [facility] CLIA [id number] [address] [place] [address] [place] MCV (RBC) [Entitic vol] 79.2 fL Low 80.0-100.0 [facility] Comment on above: Order Comment: Speci men Type: BLOOD SPECIMEN Ordering Facility: [facility] Address: [address] [place] [address] Performed By: #### 4 5066-8 #### [facility] CLIA [id number] [address] [place] [address] [place] Monocytes (Bld) [#/Vol] 0.68 10*3/uL Normal <0.87 [facility] Comment on above: Order Comment: Speci men Type: BLOOD SPECIMEN Ordering Facility: [facility] Address: [address] [place] [address] Performed By: #### 4 5066-8 #### [facility] CLIA [id number] [address] [place] [address] [place] Monocytes/100 WBC (Bld) 9.2 % Normal [facility] Comment on above: Order Comment: Speci men Type: BLOOD SPECIMEN Ordering Facility: [facility] Address: [address] [place] [address] Performed By: #### 4 5066-8 #### [facility] CLIA [id number] [address] [place] [address] [place] Neutrophils (Bld) [#/Vol] 3.65 10*3/uL Normal 1.45-7.50 [facility] Comment on above: Order Comment: Speci men Type: BLOOD SPECIMEN Ordering Facility: [facility] Address: [address] [place] [address] Performed By: #### 4 5066-8 #### [facility] CLIA [id number] [address] [place] [address] [place] Neutrophils/100 WBC (Bld) 49.3 % Normal [facility] Comment on above: Order Comment: Speci men Type: BLOOD SPECIMEN Ordering Facility: [facility] Address: [address] [place] [address] Performed By: #### 4 5066-8 #### [facility] CLIA [id number] [address] [place] [address] [place] Nucleated RBC (Bld) [#/Vol] 10*3/uL Normal <0.01 [facility] Comment on above: Order Comment: Speci men Type: BLOOD SPECIMEN Ordering Facility: [facility] Address: [address] [place] [address] Performed By: #### 4 5066-8 #### [facility] CLIA [id number] [address] [place] [address] [place] Nucleated RBC/100 WBC (Bld) [Ratio] 0.0 /100 WBC Normal [facility] Comment on above: Order Comment: Speci men Type: BLOOD SPECIMEN Ordering Facility: [facility] Address: [address] [place] [address] Performed By: #### 4 5066-8 #### [facility] CLIA [id number] [address] [place] [address] [place] Platelet mean volume (Bld) [Entitic vol] 8.9 fL Low 9.0-12.7 [facility] Comment on above: Order Comment: Speci men Type: BLOOD SPECIMEN Ordering Facility: [facility] Address: [address] [place] [address] Performed By: #### 4 5066-8 #### [facility] CLIA [id number] [address] [place], [place] [address] [facility] [place] Platelets (Bld) [#/Vol] 344 10*3/uL Normal 150-400 [facility] Comment on above: Order Comment: Speci men Type: BLOOD SPECIMEN Ordering Facility: [facility] Address: [address] [place], [place] [address] Performed By: #### 4 5066-8 #### [facility] CLIA [id number] [address] [place], [place] [address] [place] RBC (Bld) [#/Vol] 4.19 10*6/uL Normal 3.90-5.20 [facility] Comment on above: Order Comment: Speci men Type: BLOOD SPECIMEN Ordering Facility: [facility] Address: [address] [place], [place] [address] Performed By: #### 4 5066-8 #### [facility] CLIA [id number] [address] [place], [place] [address] [place] WBC (Bld) [#/Vol] 7.40 10*3/uL Normal 3.70-11.00 [facility] Comment on above: Order Comment: Speci men Type: BLOOD SPECIMEN Ordering Facility: [facility] Address: [address] [place], [place] [address] Performed By: #### 4 5066-8 #### [facility] CLIA [id number] [address] [place], [place] [address] [facility] [place] CNDSon 10-12-2024 CNDS HNO ID: [id number] Author: DIANDRA MARTINEZ MD Service: General Internal Medicine Author Type: Physician Type: Discharge Summary Filed: 10/12/2024 09:43 Note Text: DISCHARGE SUMMARY PATIENT NAME: Daly Evans ADMISSION DATE: 10/09/2024 Date or Evaluation: 10/12/2024 DISCHARGE DATE: 10/12/2024 ATTENDING PHYSICIAN: Diandra Martinez MD Code Status: Full Code Highest Readmission Risk Score: 17 The 30 day readmissions risk score is derived from an internally validated risk model which evaluates patient level characteristics, utilization history, medication orders and lab results up until the day of discharge. Patients with a score of 39 or above are considered highest risk for readmission. Specific patient level drivers will be listed at the bottom of the summary. CONSULTING TEAMS DURING HOSPITALIZATION: Treatment Team: Attending Provider: Diandra Martinez MD Attending: MR IBIS LUA REASON FOR HOSPITALIZATION: Accidental overdose of methadone, Coffee-ground emesis DIAGNOSIS: Accidental overdose of methadone, Coffee-ground emesis HOSPITAL COURSE: 39 year old female with past medical history of bipolar 2, panic disorder, ELIJAH, obesity, DVT on Lovenox, status post colostomy who presented to [facility] ED for accidental overdose. Patient resides in a nursing facility, approximately 1 month ago was taken to [facility] for colostomy after developing bowel obstruction. During the hospitalization developed DVT and was placed on Lovenox. Earlier this morning patient was accidentally given 115 mg of methadone at her facility. Initially asymptomatic however she developed diaphoresis/nausea and received Narcan x 2. She then had several episodes of coffee-ground emesis concerning for GI bleed as she is on anticoagulation Accidental overdose of methadone Patient presented after accidental overdose on methadone Initially diaphoretic and somnolent, received Narcan x 2 Continued to monitor although patient now appears alert and oriented x 3 Reportedly had several episodes of coffee-ground emesis during ER course Hemoglobin stable at this time GI consulted, Hb and HDS stable did not recommend EGD Clear liquid diet, advance to regular diet Start IV Protonix twice daily x 6 weeks Hypercoagulable state on Lovenox Hx acute mesenteric ischemia + acute limb ischemia 2/2 Restarted full dose Lovenox, no signes of bleeding were noted after starting AC, Hb was stable Diabetes Insulin regimen ordered Was on Hypoglycemia protocol Chronic conditions: Bipolar 2 disorder Panic disorder ELIJAH Obesity Patient discharged in hemodynamically stable condition to the SNF. She was advised to follow-up with PCP and her surgery team upon discharge. Patient understands agrees discharge planning and follow-up. OPERATIONS DURING HOSPITALIZATION: None PATIENT CONDITION AT DISCHARGE: Stable DISCHARGE DISPOSITION: [facility] Physical Exam: General: Not in acute distress CVS: S1-S2 normal, no murmur, No JVD RS: Clear to auscultation bilaterally Abdomen: Soft, nontender, no organomegaly Musculoskeletal: No LE edema Neuro: AO x3, No focal deficits Psy: Cooperative, No anxiety/depression WOUND/SURGICAL SITE CARE: None DIET: Resume pre-hospital diet ACTIVITY: Resume pre-hospital activity ALLERGIES Allergen Reactions Hydrocodone-Acetami* GI Upset hyperactivity DISCHARGE MEDICATION: Medication List START taking these medications iv contrast (will be provided with radiology test) CT Chest W -Inject, intravenously, once for 1 dose.No IV access, insert saline lock prior to the beginning of sedation, infusion, injection of imaging exam. Discontinue saline lock post exam. If Pt. has a central line or IVAD, may access for administration according to line specific nursing protocol. Once exam is complete flush line and de-access according to line specific nursing protocol in the CT contrast administration guidelines link. CHANGE how you take these medications enoxaparin 100 mg/mL Syrg Commonly known as: LOVENOX Inject 0.9 mL subcutaneously every 12 hours. What changed: how much to take insulin lispro 100 unit/mL injection Commonly known as: HumaLOG Inject 0-10 Units subcutaneously once daily. Daily @ 3AM What changed: Another medication with the same name was removed. Continue taking this medication, and follow the directions you see here. pantoprazole DR 40 mg tablet Commonly known as: PROTONIX Take 1 tablet by mouth two times a day. What changed: when to take this CONTINUE taking these medications aspirin 81 mg chewable tablet Take 1 tablet by mouth once daily. atorvastatin 40 mg tablet Commonly known as: LIPITOR Take 1 tablet by mouth daily at bedtime. dextrose 15 gram/32 mL oral gel Commonly known as: TRUEPLUS Take 32 mL by mouth as needed (blood glucose is less than 70 mg/dL). escitalopram oxa (more content not included)... Normal [facility] Basic metabolic 2000 panelon 10-11-2024 Anion gap [Moles/Vol] 10 mmol/L Normal - [facility] Comment on above: Order Comment: Speci men Type: BLOOD SPECIMENOrdering Facility: [facility] Address: [address] [place] [address] Performed By: #### 2 4321-2 ####[facility] [id number] [place] [address] [place] Calcium [Mass/Vol] 9.2 mg/dL Normal 8.5-10.5 [facility] Comment on above: Order Comment: Speci men Type: BLOOD SPECIMENOrdering Facility: [facility] Address: [address] [place] [address] Performed By: #### 2 4321-2 ####[facility] [id number] [place] [address] [place] Chloride [Moles/Vol] 101 mmol/L Normal 98-107 [facility] Comment on above: Order Comment: Speci men Type: BLOOD SPECIMENOrdering Facility: [facility] Address: [address] [place] [address] Performed By: #### 2 4321-2 ####[facility] [id number] [place] [address] [place] CO2 [Moles/Vol] 25 mmol/L Normal 21-32 [facility] Comment on above: Order Comment: Speci men Type: BLOOD SPECIMENOrdering Facility: [facility] Address: [address] [place] [address] Performed By: #### 2 4321-2 ####[facility] [id number] [place] [address] [place] Creatinine [Mass/Vol] 0.76 mg/dL Normal 0.51-0.95 [facility] Comment on above: Order Comment: Speci men Type: BLOOD SPECIMENOrdering Facility: [facility] Address: [address] [place] [address] Result Comment: Marissa ents receiving either N-Acetylcysteine (NAC) or Metamizole prior to venipuncture, may have falsely depressed results. Performed By: #### 2 4321-2 ####[facility] [id number] [place] [address] [place] Creatinine and Glomerular filtration rate.predicted panel (S/P/Bld) 101 mL/min/1.73m??? Normal >=60 [facility] Comment on above: Order Comment: Speci men Type: BLOOD SPECIMENOrdering Facility: [facility] Address: [address] [place] [address] Result Comment: Zeny mated Glomerular Filtration Rate (eGFR) is calculated using the 2020 CKD-EPI creatinine equation. This equation utilizes serum creatinine, sex, and age as parameters. The creatinine assay has traceable calibration to isotope dilution-mass spectrometry. Refer to KDIGO guidelines for clinical interpretation. In patients with unstable renal function, e.g. those with acute kidney injury, the eGFR may not accurately reflect actual GFR. Performed By: #### 2 4321-2 ####[facility] [id number] [place] [address] [place] Glucose [Mass/Vol] 102 mg/dL High 70-100 [facility] Comment on above: Order Comment: Dora finch Type: BLOOD SPECIMENOrdering Facility: [facility] Address: [address] [place] [address] Result Comment: The [place] Diabetes [employer] (ADA) provides guidance for cutoff values for fasting glucose and random glucose. The ADA defines fasting as no caloric intake for at least 8 hours. Fasting plasma glucose results between 100 to 125 mg/dL indicate increased risk for diabetes (prediabetes). Fasting plasma glucose results greater than or equal to 126 mg/dL meet the criteria for diagnosis of diabetes. In the absence of unequivocal hyperglycemia, results should be confirmed by repeat testing. In a patient with classic symptoms of hyperglycemia or hyperglycemic crisis, random plasma glucose results greater than or equal to 200 mg/dL meet the criteria for diagnosis of diabetes. Reference: Standards of Medical Care in Diabetes 2016, [place] [employer]. Diabetes Care. 2016.39(Suppl 1). Results may be falsely elevated after the administration of Sulfapyridine. Results may be falsely depressed after the administration of Sulfasalazine. Performed By: #### 2 4321-2 ####[facility] [id number] [place] [id number] [place] Potassium [Moles/Vol] 3.0 mmol/L Low 3.5-5.1 [facility] Comment on above: Order Comment: Dora finch Type: BLOOD SPECIMENOrdering Facility: [facility] Address: [address] [place] [id number] Performed By: #### 2 4321-2 ####[facility] [id number] [place] [id number] [place] [facility] Sodium [Moles/Vol] 136 mmol/L Normal 136-145 [facility] Comment on above: Order Comment: Speci men Type: BLOOD SPECIMENOrdering Facility: [facility] Address: [address] [place] [address] Performed By: #### 2 4321-2 ####[facility] [id number] [place] [address] [place] Urea nitrogen [Mass/Vol] 6 mg/dL Low 01-19 [facility] Comment on above: Order Comment: Speci men Type: BLOOD SPECIMENOrdering Facility: [facility] Address: [address] [place] [address] Performed By: #### 2 4321-2 ####[facility] [id number] [address] [place] CBC W Auto Differential pane l (Bld)on 10-11-2024 Basophils (Bld) [#/Vol] 0.03 10*3/uL Normal <0.11 [facility] Comment on above: Order Comment: Speci men Type: BLOOD SPECIMENOrdering Facility: [facility] Address: [address] [place] [address] Performed By: #### 5 7021-8 ####[facility] [id number] [address] [place] Basophils/100 WBC (Bld) 0.5 % Normal [facility] Comment on above: Order Comment: Speci men Type: BLOOD SPECIMENOrdering Facility: [facility] Address: [address] [place] [address] Performed By: #### 5 7021-8 ####[facility] [id number] [address] [place] [facility] Differential cell count method Nom (Bld) Auto Normal [facility] Comment on above: Order Comment: Speci men Type: BLOOD SPECIMENOrdering Facility: [facility] Address: [address] [place] [address] Performed By: #### 5 7021-8 ####[facility]IA [id number] [address] [place] Eosinophils (Bld) [#/Vol] 0.09 10*3/uL Normal <0.46 [facility] Comment on above: Order Comment: Speci men Type: BLOOD SPECIMENOrdering Facility: [facility] Address: [address] [place] [address] Performed By: #### 5 7021-8 ####[facility] [id number] [address] OF [place] Eosinophils/100 WBC (Bld) 1.5 % Normal [facility] Comment on above: Order Comment: Speci men Type: BLOOD SPECIMENOrdering Facility: [facility] Address: [address] [place] [address] Performed By: #### 5 7021-8 ####[facility]IA [id number] [address] [place] Erythrocyte distribution width (RBC) [Ratio] 14.8 % Normal 11.5-15.0 [facility] Comment on above: Order Comment: Speci men Type: BLOOD SPECIMENOrdering Facility: [facility] Address: [address] [place] [address] Performed By: #### 5 7021-8 ####[facility]CLIA [id number] [address] [place] Hematocrit (Bld) [Volume fraction] 29.6 % Low 36.0-46.0 [facility] Comment on above: Order Comment: Speci men Type: BLOOD SPECIMENOrdering Facility: [facility] Address: [address] [place] [address] Performed By: #### 5 7021-8 ####[facility]CLIA [id number] [address] [place] Hemoglobin (Bld) [Mass/Vol] 9.2 g/dL Low 11.5-15.5 [facility] Comment on above: Order Comment: Speci men Type: BLOOD SPECIMENOrdering Facility: [facility] Address: [address] [place] [address] Performed By: #### 5 7021-8 ####[facility]ORYCLIA [id number] [place] [address] [place] Immature granulocytes (Bld) [#/Vol] 0.03 10*3/uL Normal <0.10 [facility] Comment on above: Order Comment: Speci men Type: BLOOD SPECIMENOrdering Facility: [facility] Address: [address] [place] [address] Performed By: #### 5 7021-8 ####[facility]ORYCLIA [id number] [place] [address] [place] Immature granulocytes/100 WBC (Bld) 0.5 % Normal [facility] Comment on above: Order Comment: Speci men Type: BLOOD SPECIMENOrdering Facility: [facility] Address: [address] [place] [address] Performed By: #### 5 7021-8 ####[facility]ORYCLIA [id number] [place] [address] [place] Lymphocytes (Bld) [#/Vol] 1.59 10*3/uL Normal 1.00-4.00 [facility] Comment on above: Order Comment: Speci men Type: BLOOD SPECIMENOrdering Facility: [facility] Address: [address] [place] [address] Performed By: #### 5 7021-8 ####[facility]ORYCLIA [id number] [place] [address] [place] Lymphocytes/100 WBC (Bld) 27.2 % Normal [facility] Comment on above: Order Comment: Speci men Type: BLOOD SPECIMENOrdering Facility: [facility] Address: [address] [place] [address] Performed By: #### 5 7021-8 ####[facility]ORYCLIA [id number] [address] [place] MCH (RBC) [Entitic mass] 24.2 pg Low 26.0-34.0 [facility] Comment on above: Order Comment: Speci men Type: BLOOD SPECIMENOrdering Facility: [facility] Address: [address] [place] [address] Performed By: #### 5 7021-8 ####[facility]ORYCLIA [id number] [place] [address] [place] MCHC (RBC) [Mass/Vol] 31.1 g/dL Normal 30.5-36.0 [facility] Comment on above: Order Comment: Speci men Type: BLOOD SPECIMENOrdering Facility: [facility] Address: [address] [place] [address] Performed By: #### 5 7021-8 ####[facility]ORYCLIA [id number] [address] [place] MCV (RBC) [Entitic vol] 77.9 fL Low 80.0-100.0 [facility] Comment on above: Order Comment: Speci men Type: BLOOD SPECIMENOrdering Facility: [facility] Address: [address] [place] [address] Performed By: #### 5 7021-8 ####[facility]ORYCLIA [id number] [address] [place] Monocytes (Bld) [#/Vol] 0.62 10*3/uL Normal <0.87 [facility] Comment on above: Order Comment: Speci men Type: BLOOD SPECIMENOrdering Facility: [facility] Address: [address] [place], [place] [address] Performed By: #### 5 7021-8 ####[facility]ORYIA [id number] [address] Monocytes/100 WBC (Bld) 10.6 % Normal [facility] Comment on above: Order Comment: Speci men Type: BLOOD SPECIMENOrdering Facility: [facility] Address: [address] [place] [address] Performed By: #### 5 7021-8 ####[facility]ORYCLIA [id number] [place] [address] [place] Neutrophils (Bld) [#/Vol] 3.48 10*3/uL Normal 1.45-7.50 [facility] Comment on above: Order Comment: Speci men Type: BLOOD SPECIMENOrdering Facility: [facility] Address: [address] [place] [address] Performed By: #### 5 7021-8 ####[facility]ORYCLIA [id number] [place] [id number] [place] Neutrophils/100 WBC (Bld) 59.7 % Normal [facility] Comment on above: Order Comment: Speci men Type: BLOOD SPECIMENOrdering Facility: [facility] Address: [address] [place] [address] Performed By: #### 5 7021-8 ####[facility]ORYCLIA [id number] [place] [address] [place] Nucleated RBC (Bld) [#/Vol] 10*3/uL Normal <0.01 [facility] Comment on above: Order Comment: Speci men Type: BLOOD SPECIMENOrdering Facility: [facility] Address: [address] [place] [address] Performed By: #### 5 7021-8 ####[facility]ORYCLIA [id number] [place] [address] [place] Nucleated RBC/100 WBC (Bld) [Ratio] 0.0 /100 WBC Normal [facility] Comment on above: Order Comment: Speci men Type: BLOOD SPECIMENOrdering Facility: [facility] Address: [address] [place] [address] Performed By: #### 5 7021-8 ####[facility]ORYCLIA [id number] [place] [id number] [place] Platelet mean volume (Bld) [Entitic vol] 9.3 fL Normal 9.0-12.7 [facility] Comment on above: Order Comment: Speci men Type: BLOOD SPECIMENOrdering Facility: [facility] Address: [address] [place] [address] Performed By: #### 5 7021-8 ####[facility]ORYCLIA [id number] [place] [id number] [facility] Platelets (Bld) [#/Vol] 362 10*3/uL Normal 150-400 [facility] Comment on above: Order Comment: Speci men Type: BLOOD SPECIMENOrdering Facility: [facility] Address: [address] [place] [address] Performed By: #### 5 7021-8 ####[facility]ORYCLIA [id number] [address] RBC (Bld) [#/Vol] 3.80 10*6/uL Low 3.90-5.20 [facility] Comment on above: Order Comment: Speci men Type: BLOOD SPECIMENOrdering Facility: [facility] Address: [address] [place] [address] Performed By: #### 5 7021-8 ####[facility]ORYCLIA [id number] [address] WBC (Bld) [#/Vol] 5.84 10*3/uL Normal 3.70-11.00 [facility] Comment on above: Order Comment: Speci men Type: BLOOD SPECIMENOrdering Facility: [facility] Address: [address] [place] [address] Performed By: #### 5 7021-8 ####[facility]ORYCLIA [id number] [place] [id number] [facility] ALLIED HEALTHon 10-10-2024 ALLIED HEALTH HNO ID: [id number] Author: SANG CASE, NATHANAEL Service: Wound/Ostomy Author Type: Registered Nurse Type: Allied Health Filed: 10/10/2024 12:07 Note Text: Summary: Wound Care Consult Wound Care Nurse Consult Patient: Daly Evans : 1985 Admit Date: 10/09/2024 REASON FOR CONSULT: bilateral toe wounds ASSESSMENT: Wound 10/09/241810 Toe D5, fifth Anterior;Left (Active) Properties Placement Date 10/09/24 Placement Time 1810 Location Toe D5, fifth Wound Location Orientation Anterior;Left Assessments 10/10/2024 7:30 AM Wound Image Site Assessment Black;Dry;Purple;Necrotic;E schar Bryanna-Wound Assessment Intact Shape eschar noted to left toes Drainage Amount None Odor None Treatments Open to Air State of Healing Eschar Active Orders Date Order Priority Status Authorizing Provider 10/09/241925 Wound Care Consult Routine Active Rosa Maria Bullock MD - Wound present on admission to the hospital:: Yes - Location of Wound:: Heel - Laterality:: Bilateral - Wound being followed by a Clinician/LIP:: No - Clinician/LIP need Wound Care Team to recommend treatment - Pressure Injury color:: Black Wound 10/09/241812 Heel Left (Active) Properties Placement Date 10/09/24 Placement Time 1812 Location Heel Wound Location Orientation Left Assessments 10/10/2024 7:30 AM Wound Image Site Assessment Black;Dry;Necrotic;Red Bryanna-Wound Assessment Dry Treatments Open to Air State of Healing Eschar Active Orders Date Order Priority Status Authorizing Provider 10/09/241925 Wound Care Consult Routine Active Rosa Maria Bullock MD - Wound present on admission to the hospital:: Yes - Location of Wound:: Heel - Laterality:: Bilateral - Wound being followed by a Clinician/LIP:: No - Clinician/LIP need Wound Care Team to recommend treatment - Pressure Injury color:: Black Wound 10/09/241812 Heel Right (Active) Properties Placement Date 10/09/24 Placement Time 1813 Location Heel Wound Location Orientation Right Assessments 10/10/2024 7:30 AM Treatments Open to Air Active Orders Date Order Priority Status Authorizing Provider 10/09/241925 Wound Care Consult Routine Active Rosa Maria Bullock MD - Wound present on admission to the hospital:: Yes - Location of Wound:: Heel - Laterality:: Bilateral - Wound being followed by a Clinician/LIP:: No - Clinician/LIP need Wound Care Team to recommend treatment - Pressure Injury color:: Black Wound 10/09/241813 Toe D2, second Anterior;Right (Active) Properties Placement Date 10/09/24 Placement Time 1813 Location Toe D2, second Wound Location Orientation Anterior;Right Assessments 10/10/2024 7:30 AM Wound Image Site Assessment Black;Necrotic;Dry;Eschar Bryanna-Wound Assessment Dry Treatments Open to Air Active Orders Date Order Priority Status Authorizing Provider 10/09/241925 Wound Care Consult Routine Active Rosa Maria Bullock MD - Wound present on admission to the hospital:: Yes - Location of Wound:: Heel - Laterality:: Bilateral - Wound being followed by a Clinician/LIP:: No - Clinician/LIP need Wound Care Team to recommend treatment - Pressure Injury color:: Black Pt states she sees vascular at [facility] and will go there on the for another follow up. States she is using betadine for the toes/heel. RECOMMENDATIONS: rn stars Communication Order; Dressing recommendations require a provider's order, please obtain and place as a Dressing Care order. Right and left toe and Left Heel eschar. [place] with betadine daily. If you notice drainage anywhere, apply silver alginate and gauze-change daily. Maintain pressure prevention interventions-offload heels with pillows or Truevue boots.. Re-consult Wound Care if skin or wounds deteriorate further or if new problems arise. [facility] ALLIED HEALTH HNO ID: [id number] Author: SANG CASE, NATHANAEL Service: Wound/Ostomy Author Type: Registered Nurse Type: Allied Health Filed: 10/10/2024 13:46 Note Text: Summary: Ostomy Nurse Visit Ostomy Nurse Consult Outcome: Pt has established jejunostomy. States the pouch she has on has been on for 2 days which is good for her. Has a high output Sensura cory with a spout and a belt on currently. States that her output has been liquid enough to come through. Assessment Stoma Type: Jejunostomy Size/Diameter: unable to visualize Location: Q Character of output: liquid per pt Emptying frequency per day: per floor nursing Current pouching system: currently wear high output Sensura cory Current wearing time: 2 days currently Recommendations: Remove old pouch gently-push/pull. Cleanse peristomal skin with warm washcloth-no soap. If there is any area of skin breakdown, apply stomahesive powder #7906 lightly dusted onto the areas, wiping off excess. Seal in with no sting skin prep pad. Apply Augustine paste #57590 into any creases at 3 and 9 o'clock. Apply Augustine #8815 adapt ring around the stoma. Apply pouching system: Pouching System: There are 2 pouches for the patient to try 1) #30032 Sensura [place] 2 piece Flex High Output ostomy pouch with soft outlet-included a clip in case the drainage is too thick for the outlet. In this case, just cut off the spout and use a clip to secure/empty. #57198 Convex light ostomy 2 piece flex with belt tabs 2) can also try #52498 JERONIMO Ultramax cut to fit large deep convex pouch Wear Time Goal: 3-4 days If additional ostomy supplies are needed, please call [facility] ([phone]) for above mentioned supplies. If supplies are unavailable in [facility] [employer], please secure chat [facility] or call extension [phone] to request more supplies. Normal [facility] Basic metabolic 2000 panelon 10-10-2024 Anion gap [Moles/Vol] 9 mmol/L Normal 5-16 [facility] Comment on above: Order Comment: Speci men Type: BLOOD SPECIMEN Ordering Facility: [facility] Address: [address] [place] [address] Performed By: #### 2 4321-2 #### [facility] CLIA [id number] [address] [place] [address] [place] Calcium [Mass/Vol] 9.2 mg/dL Normal 8.5-10.5 [facility] Comment on above: Order Comment: Speci men Type: BLOOD SPECIMEN Ordering Facility: [facility] Address: [address] [place] [address] Performed By: #### 2 4321-2 #### [facility] CLIA [id number] [address] [place] [address] [place] Chloride [Moles/Vol] 99 mmol/L Normal 98-107 [facility] Comment on above: Order Comment: Speci men Type: BLOOD SPECIMEN Ordering Facility: [facility] Address: [address] [place] [address] Performed By: #### 2 4321-2 #### [facility] CLIA [id number] [address] [place] [address] [place] CO2 [Moles/Vol] 22 mmol/L Normal 21-32 [facility] Comment on above: Order Comment: Speci men Type: BLOOD SPECIMEN Ordering Facility: [facility] Address: [address] [place] [address] Performed By: #### 2 4321-2 #### [facility] CLIA [id number] [address] [place] [address] [place] Creatinine [Mass/Vol] 0.76 mg/dL Normal 0.51-0.95 [facility] Comment on above: Order Comment: Speci men Type: BLOOD SPECIMEN Ordering Facility: [facility] Address: [address] [place] [address] Result Comment: Marissa ents receiving either N-Acetylcysteine (NAC) or Metamizole prior to venipuncture, may have falsely depressed results. Performed By: #### 2 4321-2 #### [facility] CLIA [id number] [address] [place] [address] [place] Creatinine and Glomerular filtration rate.predicted panel (S/P/Bld) 101 mL/min/1.73m??? Normal >=60 [facility] Comment on above: Order Comment: Dora finch Type: BLOOD SPECIMEN Ordering Facility: [facility] Address: [address] [place] [address] Result Comment: Zeny mated Glomerular Filtration Rate (eGFR) is calculated using the 2020 CKD-EPI creatinine equation. This equation utilizes serum creatinine, sex, and age as parameters. The creatinine assay has traceable calibration to isotope dilution-mass spectrometry. Refer to KDIGO guidelines for clinical interpretation. In patients with unstable renal function, e.g. those with acute kidney injury, the eGFR may not accurately reflect actual GFR. Performed By: #### 2 4321-2 #### [facility] CLIA [id number] [address] [place] [address] [place] Glucose [Mass/Vol] 88 mg/dL Normal 70-100 [facility] Comment on above: Order Comment: Dora finch Type: BLOOD SPECIMEN Ordering Facility: [facility] Address: [address] [place] [address] Result Comment: The [place] Diabetes [employer] (ADA) provides guidance for cutoff values for fasting glucose and random glucose. The ADA defines fasting as no caloric intake for at least 8 hours. Fasting plasma glucose results between 100 to 125 mg/dL indicate increased risk for diabetes (prediabetes). Fasting plasma glucose results greater than or equal to 126 mg/dL meet the criteria for diagnosis of diabetes. In the absence of unequivocal hyperglycemia, results should be confirmed by repeat testing. In a patient with classic symptoms of hyperglycemia or hyperglycemic crisis, random plasma glucose results greater than or equal to 200 mg/dL meet the criteria for diagnosis of diabetes. Reference: Standards of Medical Care in Diabetes 2016, [place] [employer]. Diabetes Care. 2016.39(Suppl 1). Results may be falsely elevated after the administration of Sulfapyridine. Results may be falsely depressed after the administration of Sulfasalazine. Performed By: #### 2 4321-2 #### [facility] CLIA [id number] [address] [place] [address] [place] Potassium [Moles/Vol] 3.4 mmol/L Low 3.5-5.1 [facility] Comment on above: Order Comment: Speci men Type: BLOOD SPECIMEN Ordering Facility: [facility] Address: [address] [place] [address] Performed By: #### 2 4321-2 #### [facility] CLIA [id number] [address] [place] [address] [place] Sodium [Moles/Vol] 130 mmol/L Low 136-145 [facility] Comment on above: Order Comment: Speci men Type: BLOOD SPECIMEN Ordering Facility: [facility] Address: [address] [place] [address] Performed By: #### 2 4321-2 #### [facility] CLIA [id number] [address] [place] [address] [place] Urea nitrogen [Mass/Vol] 9 mg/dL Normal 7-26 [facility] Comment on above: Order Comment: Speci men Type: BLOOD SPECIMEN Ordering Facility: [facility] Address: [address] [place] [address] Performed By: #### 2 4321-2 #### [facility] CLIA [id number] [address] [place] [address] [place] CBC W Auto Differential pane l (Bld)on 10-10-2024 Basophils (Bld) [#/Vol] 0.05 10*3/uL Normal <0.11 [facility] Comment on above: Order Comment: Speci men Type: BLOOD SPECIMEN Ordering Facility: [facility] Address: [address] [place] [address] Performed By: #### 5 7021-8 #### [facility] CLIA [id number] [address] [place] [address] [place] Basophils/100 WBC (Bld) 0.7 % Normal [facility] Comment on above: Order Comment: Speci men Type: BLOOD SPECIMEN Ordering Facility: [facility] Address: [facility] [place] [address] Performed By: #### 5 7021-8 #### [facility] CLIA [id number] [address] [place] [address] [place] Differential cell count method Nom (Bld) Auto Normal [facility] Comment on above: Order Comment: Speci men Type: BLOOD SPECIMEN Ordering Facility: [facility] Address: [address] [place] [address] Performed By: #### 5 7021-8 #### [facility] CLIA [id number] [address] [place] [address] [place] Eosinophils (Bld) [#/Vol] 0.07 10*3/uL Normal <0.46 [facility] Comment on above: Order Comment: Speci men Type: BLOOD SPECIMEN Ordering Facility: [facility] Address: [address] [place] [address] Performed By: #### 5 7021-8 #### [facility] CLIA [id number] [address] [place] [address] [place] Eosinophils/100 WBC (Bld) 1.0 % Normal [facility] Comment on above: Order Comment: Speci men Type: BLOOD SPECIMEN Ordering Facility: [facility] Address: [address] [place] [address] Performed By: #### 5 7021-8 #### [facility] CLIA [id number] [address] [place] [address] [place] Erythrocyte distribution width (RBC) [Ratio] 14.9 % Normal 11.5-15.0 [facility] Comment on above: Order Comment: Speci men Type: BLOOD SPECIMEN Ordering Facility: [facility] Address: [address] [place] [address] Performed By: #### 5 7021-8 #### [facility] CLIA [id number] [address] [place] [address] [place] Hematocrit (Bld) [Volume fraction] 33.3 % Low 36.0-46.0 [facility] Comment on above: Order Comment: Speci men Type: BLOOD SPECIMEN Ordering Facility: [facility] Address: [address] [place] [address] Performed By: #### 5 7021-8 #### [facility] CLIA [id number] [address] [place] [address] [place] Hemoglobin (Bld) [Mass/Vol] 10.4 g/dL Low 11.5-15.5 [facility] Comment on above: Order Comment: Speci men Type: BLOOD SPECIMEN Ordering Facility: [facility] Address: [address] [place] [address] Performed By: #### 5 7021-8 #### [facility] CLIA [id number] [address] [place] [address] [place] Immature granulocytes (Bld) [#/Vol] 10*3/uL Normal <0.10 [facility] Comment on above: Order Comment: Speci men Type: BLOOD SPECIMEN Ordering Facility: [facility] Address: [address] [place] [address] Performed By: #### 5 7021-8 #### [facility] CLIA [id number] [address] [place] [address] [place] Immature granulocytes/100 WBC (Bld) 0.3 % Normal [facility] Comment on above: Order Comment: Speci men Type: BLOOD SPECIMEN Ordering Facility: [facility] Address: [address] [place] [address] Performed By: #### 5 7021-8 #### [facility] CLIA [id number] [address] [place] [address] [place] Lymphocytes (Bld) [#/Vol] 2.17 10*3/uL Normal 1.00-4.00 [facility] Comment on above: Order Comment: Speci men Type: BLOOD SPECIMEN Ordering Facility: [facility] Address: [address] [place] [address] Performed By: #### 5 7021-8 #### [facility] CLIA [id number] [address] [place] [address] [place] Lymphocytes/100 WBC (Bld) 30.6 % Normal [facility] Comment on above: Order Comment: Speci men Type: BLOOD SPECIMEN Ordering Facility: [facility] Address: [address] [place] [address] Performed By: #### 5 7021-8 #### [facility] CLIA [id number] [address] [place] [address] [place] MCH (RBC) [Entitic mass] 24.3 pg Low 26.0-34.0 [facility] Comment on above: Order Comment: Speci men Type: BLOOD SPECIMEN Ordering Facility: [facility] Address: [address] [place] [address] Performed By: #### 5 7021-8 #### [facility] CLIA [id number] [address] [place] [address] [place] MCHC (RBC) [Mass/Vol] 31.2 g/dL Normal 30.5-36.0 [facility] Comment on above: Order Comment: Speci men Type: BLOOD SPECIMEN Ordering Facility: [facility] Address: [address] [place] [address] Performed By: #### 5 7021-8 #### [facility] CLIA [id number] [address] [place] [address] [place] MCV (RBC) [Entitic vol] 77.8 fL Low 80.0-100.0 [facility] Comment on above: Order Comment: Speci men Type: BLOOD SPECIMEN Ordering Facility: [facility] Address: [address] [place] [address] Performed By: #### 5 7021-8 #### [facility] CLIA [id number] [address] [place] [address] [place] Monocytes (Bld) [#/Vol] 0.77 10*3/uL Normal <0.87 [facility] Comment on above: Order Comment: Speci men Type: BLOOD SPECIMEN Ordering Facility: [facility] Address: [address] [place] [address] Performed By: #### 5 7021-8 #### [facility] CLIA [id number] [address] [place] [address] [place] Monocytes/100 WBC (Bld) 10.9 % Normal [facility] Comment on above: Order Comment: Speci men Type: BLOOD SPECIMEN Ordering Facility: [facility] Address: [address] [place] [address] Performed By: #### 5 7021-8 #### [facility] CLIA [id number] [address] [place] [address] [place] Neutrophils (Bld) [#/Vol] 4.01 10*3/uL Normal 1.45-7.50 [facility] Comment on above: Order Comment: Speci men Type: BLOOD SPECIMEN Ordering Facility: [facility] Address: [address] [place] [address] Performed By: #### 5 7021-8 #### [facility] CLIA [id number] [address] [place] [address] [place] Neutrophils/100 WBC (Bld) 56.5 % Normal [facility] Comment on above: Order Comment: Speci men Type: BLOOD SPECIMEN Ordering Facility: [facility] Address: [address] [place] [address] Performed By: #### 5 7021-8 #### [facility] CLIA [id number] [address] [place] [address] [place] Nucleated RBC (Bld) [#/Vol] 10*3/uL Normal <0.01 [facility] Comment on above: Order Comment: Speci men Type: BLOOD SPECIMEN Ordering Facility: [facility] Address: [address] [place] [address] Performed By: #### 5 7021-8 #### [facility] CLIA [id number] [address] [place], [place] [id number] [place] Nucleated RBC/100 WBC (Bld) [Ratio] 0.0 /100 WBC Normal [facility] Comment on above: Order Comment: Speci men Type: BLOOD SPECIMEN Ordering Facility: [facility] Address: [address] [facility] [address] Performed By: #### 5 7021-8 #### [facility] CLIA [id number] [address] [place], [place] [address] [place] Platelet mean volume (Bld) [Entitic vol] 8.8 fL Low 9.0-12.7 [facility] Comment on above: Order Comment: Speci men Type: BLOOD SPECIMEN Ordering Facility: [facility] Address: [address] [place] [address] Performed By: #### 5 7021-8 #### [facility] CLIA [id number] [address] [place] [address] [place] Platelets (Bld) [#/Vol] 380 10*3/uL Normal 150-400 [facility] Comment on above: Order Comment: Speci men Type: BLOOD SPECIMEN Ordering Facility: [facility] Address: [address] [place], [place] [address] Performed By: #### 5 7021-8 #### [facility] CLIA [id number] [address] [place] [address] [place] RBC (Bld) [#/Vol] 4.28 10*6/uL Normal 3.90-5.20 [facility] Comment on above: Order Comment: Speci men Type: BLOOD SPECIMEN Ordering Facility: [facility] Address: [address] [place] [address] Performed By: #### 5 7021-8 #### [facility] CLIA [id number] [address] [place] [address] [place] WBC (Bld) [#/Vol] 7.09 10*3/uL Normal 3.70-11.00 [facility] Comment on above: Order Comment: Speci men Type: BLOOD SPECIMEN Ordering Facility: [facility] Address: [address] [place] [address] Performed By: #### 5 7021-8 #### [facility] CLIA [id number] [address] [place] [address] [place] CONSULTon 10-10-2024 CONSULT HNO ID: [id number] Author: RAKESH DAVIS APRN.CNP Service: Gastroenterology Author Type: Nurse Practitioner Type: Consults Filed: 10/10/2024 12:51 Note Text: Attestation signed by Alexandria Benitez DO at 10/10/2024 4:57 PM Attending Note I have personally performed a face to face assessment of the patient and have reviewed the ISHAAN note. I performed a substantive portion of the visit including all aspects of the following. My lagos findings include: Patient is a 39-year-old female who presents secondary to accidental overdose of methadone. She was noted to have a few episodes of coffee-ground emesis while in the emergency room at the outside hospital. She has a past medical history of hypercoagulable state, history of acute mesenteric ischemia with acute limb ischemia secondary to thromboembolism status post surgical intervention as stated in my ISHAAN's note. She is currently on therapeutic Lovenox therapy. Her hemoglobin is stable at 10.4 which is actually higher than her baseline hemoglobin over the last few months. She has had no further episodes of coffee-ground emesis. Recommend conservative management at this time given her recent surgical interventions and need for anticoagulation. Continue with pantoprazole 40 mg twice daily for possible ulcerative disease in her upper GI tract. She should continue this for 6 weeks then decrease to once daily until seen by division chief as an outpatient. Once her anticoagulation can be safely held, recommend upper endoscopy for further evaluation if needed. Patient's diet may be resumed. If she has any further issues of coffee-ground emesis or other signs of GI bleeding, please not hesitate to contact us. For now GI will sign off. 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 s/p exploratory laparotomy w/small bowel resection of mid-distal jejunum and ileum with ileocecectomy 08/20/2024 with second look laparotomy ending in loop-end jejunostomy 08/22/2024, 110cm to end jejunostomy, with long rectal stump, embolic occlusion of the left internal iliac artery, and embolic occlusion of the bilateral tibial arteries s/p bilateral below knee popliteal cutdowns and bilateral thromboembolectomies of AT/PT and peroneal arteries, primary repair oftibial arteriotomies, and BLLE 4 compartment fasciotomies 08/20/2024 s/p bilateral lower extremity lateral fasciotomy closures 08/23/2024, presented to [facility] 10/09 as a transfer from [facility] for accidental overdose. Patient with noted recent extensive hospitalization for acute mesenteric ischemia as well as acute limb ischemia due to thromboembolism requiring extensive abdominal and vascular surgical intervention as noted above. Patient has required TPN for poor overall nutritional intake as well as nausea, has been rehabilitating at a SNF. Patient has been worked up for antiphospholipid syndrome by hematology with continued workup pending with plans to indefinitely anticoagulate patient and transition to Coumadin once clinically stable and off TPN. While at the SNF patient was accidentally given a large dose of methadone at her facility, followed by diaphoresis, nausea with several episodes of reported coffee-ground emesis. Patient was given Narcan x2 doses. Patient was taken to [facility] ED and transferred to [facility] for GI evaluation. The patient is sitting up in bed in no acute distress. She denies any further nausea or vomiting, not having any abdominal pain, states good output from her ostomy. Denies any NSAID use, denies any illicit or recreational drug use, denies any alcohol use, denies any family history of GI malignancies. States that she does not take methadone and was wrongfully given this medication at her facility, states that she is overall feeling well today, has not had any further nausea or vomiting. Did report a few episodes of coffee-ground emesis at the facility after receiving Narcan. States that she is currently following with hematology regarding her hypercoagulable state. Impression: Patient is a 39-year-old female, GI consulted for concern for GI bleeding on Lovenox Recommendations: #Coffee-ground emesis #Accidental overdose #Chronic microcytic anemia with iron deficiency #Hypercoagulable state on Loven (more content not included)... [facility] CONSULT PROGon 10-10-2024 CONSULT PROG HNO ID: [id number] Author: FREDRICK PERALTA elroy Service: Pharmacy Author Type: Pharmacist Type: Consult Progress Note Filed: 10/10/2024 11:22 Note Text: PHARMACY VANCOMYCIN DOSING NOTE Patient Name: Daly Evans Admission Date: 10/09/2024 Date of Consult: 10/10/2024 Time of Consult: 11:22 AM RECOMMENDATIONS/PLAN: Pharmacy consulted for vancomycin dosing for Daly Evans, a 39 year old female. Vancomycin therapy has been discontinued. Vancomycin level(s) have been discontinued: Yes. The pharmacy vancomycin dosing service will sign off. Thank you for allowing us to participate in this patient's care. Please contact pharmacy if there are questions. Fredrick Peralta RPh [facility] NUTRITIONon 10-10-2024 NUTRITION HNO ID: [id number] Author: KENYA SANTAMARIA RD Service: Nutrition Therapy Author Type: Registered Dietitian Type: Nutrition Filed: 10/10/2024 14:27 Note Text: NUTRITION THERAPY INITIAL ASSESSMENT SERVICE DATE: 10/10/2024 SERVICE TIME: 1225 REASON FOR VISIT: MST 2 / Nutrition Consult Nutrition Assessment: Recommended Malnutrition Diagnosis: Mild Protein-Calorie Malnutrition In the context of: Chronic Illness or Injury Based on: Unintentional Weight Loss Nutrition Diagnosis: Problem: Suboptimal protein/energy intake Related to: Altered GI function As evidenced by: Medical condition Care Plan: Follow for diet advancement to goal Pt reports she has been off TPN x 1 week. No plans to resume TPN per MD Pt declined offers for nutrition supplements at this time Monitor and Evaluation: Meet greater than 75% of estimated needs, Monitor bowel function, Monitor fluid/electrolyte balance, Monitor labs, I/Os, vital signs, weight Discharge Recommendations: Diet Diet: CHO Controlled HPI: Pt admitted for accidental overdose and GI bleed. GI evaluated and signed off. Had been on TPN s/p ex lap with small bowel resection 08/21/24. Intake History: Nutrition Intake Prior to Admission: Greater than 75% estimated energy needs greater than 7 days (Pt on TPN until last week during previous admission. Reports her TPN was discontinued over a week ago and she is tolerating a regular diet well) Current Nutrition Intake: NPO Current Intake Over time: (1 day LOS. Advanced to Clear Liquids. Reports she is tolerating well) Dosing Weight: 86.6 kg (191 lb) Dosing Weight Type: Current weight Estimated kilocalorie needs: 2383-5997 Calorie Calculation Method: 20-25 kcals/kg Estimated protein needs (grams): 103-129 Grams protein determined by: 1.2 - 1.5 g/kg Diet Orders (From admission, onward) Start Ordered 10/10/24 1130 DIET LIQUID START NOW Question Answer Comment Liquid Diet CLEAR LIQUID Tray Precautions TRAY PRECAUTIONS NOT REQUIRED 10/10/24 1122 Anthropometrics: Height: 170.2 cm (5' 7) Weight: 86.8 kg (191 lb 5.8 oz) Usual Weight: 98 kg (216 lb) 08/16/24 Usual Weight Obtained From: Chart Review Body mass index is 29.97 kg/m?. Weight change percentage over time: 11.6% loss x 2 months Weight Change: Clinically significant weight loss Last Wt 10/09/24 : 86.8 kg (191 lb 5.8 oz) 10/02/24 : 92.5 kg (204 lb) 09/03/24 : 91.5 kg (201 lb 11.5 oz) 08/16/24 : 98.2 kg (216 lb 9.6 oz) -11.6% x 2 months 08/07/24 : 98 kg (216 lb) Physical Exam: Subcutaneous fat loss: No Subcutaneous Fat Loss Muscle loss: No Muscle Loss Potential micronutrient deficiency: Skin (necrotizing foot wounds) Edema/Ascites: No edema GI Symptoms: None Functional Status: Not related to malnutrition status Potential Signs of Inflammation: Chronic condition, Tachycardia Lines, Drains, and Airways Drain Duration Small Bowel Ostomy 08/22/24 LLQ 48 days MNT Billing: $ Initial Assessment: 1-15 minutes SIGNATURE: Kenya Santamaria RD PATIENT NAME: Daly Evans DATE: October 10, 2024 TIME: 2:23 PM Normal [facility] APTTon 10-09-2024 aPTT Coag (Bld) [Time] 30.8 s Normal 25.4 - 38.4 [facility] Comment on above: Performed By: #### 2 86188 #### [facility],[address] [place] [address] CBC + DIFFon 10-09-2024 Baso # 0.06 x10EE3/UL Normal 0.00 - 0.10 [facility] Comment on above: Performed By: #### 2 36991 #### [facility],[address] [place] [address] Basophils/100 WBC (Bld) 0.4 % Normal 0.0 - 2.0 [facility] Comment on above: Performed By: #### 2 12622 #### [facility],[address] [place] [address] CBC + DIFF Normal [facility] Comment on above: Result Comment: CBC- COMPLETE BLOOD COUNT Performed By: #### 2 75744 #### [facility],[address] [place] [address] EO # 0.11 x10EE3/UL Normal 0.00 - 0.50 [facility] Comment on above: Performed By: #### 2 06472 #### [facility],[address] [place] [address]1131 Eosinophils/100 WBC (Bld) 0.6 % Normal 0.0 - 7.0 [facility] Comment on above: Performed By: #### 2 29432 #### [facility],[address] [place] [address] Erythrocyte distribution width (RBC) [Ratio] 16.5 % High 12.0 - 15.6 [facility] Comment on above: Performed By: #### 2 10060 #### [facility],[address] [place] [address] Hematocrit (Bld) [Volume fraction] 37.0 % Normal 34.0 - 46.0 [facility] Comment on above: Performed By: #### 2 57008 #### [facility],[address] [place] [address] Hemoglobin (Bld) [Mass/Vol] 12.3 g/dL Normal 12.0 - 16.0 [facility] Comment on above: Performed By: #### 2 00174 #### [facility],[address] [place] [address] Lymph # 3.19 x10EE3/UL High 0.80 - 2.80 [facility] Comment on above: Performed By: #### 2 95513 #### [facility],[address] [place] [address] Lymphocytes/100 WBC (Bld) 18.0 % Low 20.0 - 45.0 [facility] Comment on above: Performed By: #### 2 13212 #### [facility],[address] [place] [address] MANUAL DIFF N/A Normal [facility] Comment on above: Performed By: #### 2 45750 #### [facility],[address] [place] [address] MCH (RBC) [Entitic mass] 25 pg Low 27 - 33 [facility] Comment on above: Performed By: #### 2 07587 #### [facility],[address] [place] [address] MCHC 33 X10 3 Normal 32 - 36 [facility] Comment on above: Performed By: #### 2 49970 #### [facility],[address] [place] [address] MCV (RBC) [Entitic vol] 76 fL Low 80 - 99 [facility] Comment on above: Performed By: #### 2 21658 #### [facility],[address] [place] [address] Foster # 1.03 x10EE3/UL High 0.20 - 1.00 [facility] Comment on above: Performed By: #### 2 10220 #### [facility],[address] [place] [address] MONOS % 5.8 % Normal 0.0 - 10.0 [facility] Comment on above: Performed By: #### 2 24309 #### [facility],[address] [place] [address] Morphology Stan (Bld) [Interp] N/A Normal [facility] Comment on above: Performed By: #### 2 88212 #### [facility],[address] [place] [address] Neut # 13.36 x10EE3/UL High 1.50 - 7.10 [facility] Comment on above: Performed By: #### 2 11673 #### [facility],[address] [place] [address] Neutrophils/100 WBC (Bld) 75.2 % Normal 46.0 - 76.0 [facility] Comment on above: Performed By: #### 2 15890 #### [facility],[address] [place] [address] PLATELET 657 x10EE3/UL High 150 - 450 [facility] Comment on above: Performed By: #### 2 19125 #### [facility],[address] [place] [address] 87431 Platelet mean volume (Bld) [Entitic vol] 7.7 fL Normal 6.6 - 10.5 [facility] Comment on above: Result Comment: AUTO MATED DIFFERENTIAL Performed By: #### 2 38177 #### [facility],[address] [place] [address] 91850 RBC 4.85 x 10EE6/UL Normal 4.10 - 5.30 [facility] Comment on above: Performed By: #### 2 52637 #### [facility],[address] [place] [address] 11484 WBC 17.8 x 10EE3/UL High 4.5 - 10.8 [facility] Comment on above: Performed By: #### 2 51250 #### [facility],[address] [place] [address]20 CMP with eGFRon 10-09-2024 AGE 39 years Normal [facility] Comment on above: Performed By: #### 2 04763 #### [facility],[address] [place] [address] 95918 Albumin [Mass/Vol] 3.1 g/dL Low 3.4 - 5.0 [facility] Comment on above: Performed By: #### 2 18804 #### [facility],[address] [place] [address] 67790 Albumin/Globulin [Mass ratio] 0.5 {ratio} Low 0.9 - 1.6 [facility] Comment on above: Performed By: #### 2 75140 #### [facility],[address] [place] [address] 54946 ALK PHOS 175 U/L High 46 - 116 [facility] Comment on above: Performed By: #### 2 03119 #### [facility],[address] [place] [address] 01279 ALT [Catalytic activity/Vol] 65 U/L High 16 - 63 [facility] Comment on above: Performed By: #### 2 28313 #### [facility],[address] [place] [address] 76191 Anion gap [Moles/Vol] 18 mmol/L Normal 10 - 20 [facility] Comment on above: Performed By: #### 2 89145 #### [facility],[address] [place] [address] 03703 AST [Catalytic activity/Vol] 23 U/L Normal 13 - 39 [facility] Comment on above: Performed By: #### 2 89877 #### [facility],[address] [place] [address] 58301 B/C RATIO 12 ratio Normal 0 - 30 [facility] Comment on above: Performed By: #### 2 97042 #### [facility],[address] [place] [address] 58443 Bilirubin [Mass/Vol] 0.7 mg/dL Normal 0.2 - 1.0 [facility] Comment on above: Performed By: #### 2 16297 #### [facility],[address] [place] [address] 86466 Calcium [Mass/Vol] 9.7 mg/dL Normal 8.5 - 10.1 [facility] Comment on above: Performed By: #### 2 48792 #### [facility],[address] [place] [address] 40883 Chloride [Moles/Vol] 94 mmol/L Low 98 - 107 [facility] Comment on above: Performed By: #### 2 95544 #### [facility],[address] [place] [address] 22956 CMP with eGFR Normal [facility] Comment on above: Result Comment: COMP REHENSIVE METABOLIC PANEL Performed By: #### 2 93752 #### [facility],[address] [place] [address] 39418 CO2 [Moles/Vol] 25.4 mmol/L Normal 21.0 - 32.0 [facility] Comment on above: Performed By: #### 2 46112 #### [address] [address] Creatinine [Mass/Vol] 1.72 mg/dL High 0.55 - 1.02 [facility] Comment on above: Performed By: #### 2 42484 #### [address] [address] eGFR 33 ML/MINUTE Low 60 - 999 [facility] Comment on above: Performed By: #### 2 36927 #### [address] [address] eGFR(AA) 40 ML/MINUTE Low 60 - 999 [facility] Comment on above: Result Comment: ACCO RDING TO THE NATIONAL KIDNEY DISEASE EDUCATION PROGRAM(NKDE), A NORMAL eGFR IS A VALUE GREATER THAN OR EQUAL TO 60 ML/MIN/1.73 SQ METERS. CHRONIC KIDNEY DISEASE: <60mL/MIN/1.73 SQ METERS KIDNEY FAILURE: <15mL/MIN/1.73 SQ METERS THIS TEST SHOULD ONLY BE USED FOR PATIENTS 18 YEARS OF AGE AND OLDER. Performed By: #### 2 31610 #### [address] [address] Globulin (S) [Mass/Vol] 6.6 g/dL High 1.5 - 3.8 [facility] Comment on above: Performed By: #### 2 04885 #### [address] [address] Glucose [Mass/Vol] 245 mg/dL High 74 - 106 [facility] Comment on above: Performed By: #### 2 80541 #### [address] [address] Potassium [Moles/Vol] 2.3 mmol/L Critically low 3.5 - 5.1 [facility] Comment on above: Result Comment: { CA LLED TO NATHANAEL REDMOND BY [facility] @ 0937 { READ BACK BY NATHANAEL REDMOND RA 0937 Performed By: #### 2 15898 #### [facility],[address] [place] [address] 7[address]60 Protein [Mass/Vol] 9.7 g/dL High 6.4 - 8.2 [facility] Comment on above: Performed By: #### 2 86472 #### [facility],[address] [place] [address] 47273 Sodium [Moles/Vol] 135 mmol/L Low 136 - 145 [facility] Comment on above: Performed By: #### 2 86959 #### [facility],[address] [place] [address] 26043 Urea nitrogen [Mass/Vol] 21 mg/dL High 7 - 18 [facility] Comment on above: Performed By: #### 2 73235 #### [address] [address] CONSULT PROGon 10-09-2024 CONSULT PROG HNO ID: [id number] Author: MORENA HAWKINS RPh Service: Pharmacy Author Type: Pharmacist Type: Consult Progress Note Filed: 10/09/2024 21:48 Note Text: PHARMACY VANCOMYCIN DOSING NOTE Patient Name: Daly Evans Admission Date: 10/09/2024 Date of Consult: 10/09/2024 Time of Consult: 9:38 PM Indication: Source unknown; empiric Goal Range: 15-20 mcg/mL RECOMMENDATIONS/PLAN: Pharmacy consulted for vancomycin dosing for Daly Evans, a 39 year old female. 1. Patient is currently ordered Vancomycin 1.5 g IV q12h. Today is day 1 of therapy. 2. The most recent vancomycin level was 11.1 mcg/mL drawn at 2040 on 10/09/24. This is a 25 hour level on the 1 day of therapy. 3. Will increase vancomycin to 2 g with a dosing interval of q12h. 4. The next vancomycin level will be ordered for 10/11/24 2100 unless clinically indicated sooner. (Pharmacy will order) We will follow patient renal function, vancomycin levels and doses with you during the course of therapy. Additional recommendations will appear in follow up notes. If you have any questions, please contact pharmacy at [phone]. Age: [age] year old Allergies: ALLERGIES Allergen Reactions Hydrocodone-Acetami* GI Upset hyperactivity Last 3 Encounter Wt Readings: Date: Wt: 10/09/2024 86.8 kg (191 lb 5.8 oz) 10/02/2024 92.5 kg (204 lb) 08/20/2024 91.5 kg (201 lb 11.5 oz) Last 1 Encounter Ht Readings: Date: Ht: 10/09/2024 170.2 cm (5' 7) CrCl: 84.6 mL/min Temp (24hrs), Av.9 ?C (98.4 ?F), Min:36.9 ?C (98.4 ?F), Max:36.9 ?C (98.4 ?F) - Current Temp: 36.9 ?C (98.4 ?F) Labs BUN (mg/dL) Date Value 09/03/2024 18 09/02/2024 17 09/01/2024 20 Creatinine (mg/dL) Date Value 10/09/2024 0.99 (H) 09/03/2024 0.71 09/02/2024 0.78 WBC (k/uL) Date Value 10/02/2024 7.44 09/03/2024 14.17 (H) 09/02/2024 17.75 (H) Vancomycin Levels: Vancomycin (ug/mL) Date/Time Value 10/09/2024 2040 11.1 08/22/20242024 12.7 Morena Hawkins RPh [facility] CT ABDOMEN/PELVIS WO 10-09 CT ABDOMEN/PELVIS [place] [address] Patient: DALY EVANS Phone#: : [phone] Age: 39 Gender: F Pt. Type: ER Account: [id number] Location: 2 Ordering: FARZANEH AVILEZ Exam Date: 10/09/2024/10:19 Family Phys: MAGGIE PUTNAM Charge Code: 225590 Physician: Teller Order #: [id number] Dose#: 13.40 mGy PROCEDURE: CT ABDOMEN/PELVIS WITHOUT CONTRAST COMPARISON: [facility], CT, ABDOMEN/PELVIS W CON, 09/17/2024, 5:25. INDICATIONS: Abdominal pain. TECHNIQUE: CT images were created without intravenous contrast. All CT scans at this facility use dose modulation, iterative reconstruction, and/or weight based dosing when appropriate to reduce radiation dose to as low as reasonably achievable. IV CONTRAST: No IV contrast used,0.0ml TOTAL DOSE: 13.40 CTDIvol(mGy) FINDINGS: Evaluation of the solid organs and soft tissues is limited in the absence of intravenous contrast. LIVER: Unremarkable in contour BILIARY: Gallbladder is absent. PANCREAS: Unremarkable in contour SPLEEN: Unremarkable in contour KIDNEYS: No nephrolithiasis or hydronephrosis. ADRENALS: Normal. No mass or enlargement. AORTA/VASCULAR: No aortic aneurysm. RETROPERITONEUM: Normal. No mass or adenopathy. BOWEL/MESENTERY: Small hiatal hernia. No bowel obstruction or dilatation. No significant stool burden. There is a left mid abdomen ileostomy. Surgical changes at the cecum with surgical suture material. ABDOMINAL WALL: Left mid abdomen ileostomy. URINARY BLADDER: Normal. No visible focal wall thickening, lesion, or calculus. PELVIC NODES: Normal. No adenopathy. PELVIC ORGANS: Uterus is present. No adnexal mass. BONES: Normal. No bony lesion or fracture. LUNG BASES: Normal. No visible pulmonary or pleural disease. OTHER: Negative. CONCLUSION: 1. No nephrolithiasis or hydronephrosis. Continued Report - Page 2 of 2 Patient: DALY EVANS Phone#: : [phone] Age: 39 Gender: F Pt. Type: ER Account: [id number] Location: 052 Ordering: FARZANEH AVILEZ Exam Date: 10/09/2024/10:19 Family Phys: MAGGIE MATASammie Charge Code: 605572 Physician: Teller Order #: [id number] Dose#: 13.40 mGy 2. No appreciable acute intra-abdominal or pelvic abnormality within the limits of a noncontrast exam. Dictated by: Alicia Maya MD on 10/09/2024 at 10:49 Approved by: Alicia Maya MD on 10/09/2024 at 10:57 Normal [facility] Creatinine + eGFR Pnl SerPlB ldon 10-09-2024 Creatinine and Glomerular filtration rate.predicted panel (S/P/Bld) 74 mL/min/1.73m??? Normal >=60 [facility] Comment on above: Order Comment: Dora finch Type: BLOOD SPECIMEN Ordering Facility: [facility] Address: [address] [place] [address] Result Comment: Zeny mated Glomerular Filtration Rate (eGFR) is calculated using the 2020 CKD-EPI creatinine equation. This equation utilizes serum creatinine, sex, and age as parameters. The creatinine assay has traceable calibration to isotope dilution-mass spectrometry. Refer to KDIGO guidelines for clinical interpretation. In patients with unstable renal function, e.g. those with acute kidney injury, the eGFR may not accurately reflect actual GFR. Performed By: #### 4 5066-8 #### [facility] CLIA [id number] [address] [place] [address] Creatinine and Glomerular fi ltration rate.predicted panel (S/P/Bld)on 10-09-2024 Creatinine [Mass/Vol] 0.99 mg/dL High 0.51-0.95 [facility] Comment on above: Order Comment: Dora finch Type: BLOOD SPECIMEN Ordering Facility: [facility] Address: [address] [place] [address] Result Comment: Marissa ents receiving either N-Acetylcysteine (NAC) or Metamizole prior to venipuncture, may have falsely depressed results. Performed By: #### 4 5066-8 #### [facility] CLIA [id number] [address] [place] [address] [place] ED MED ADMINISTRATION DETAIL on 10-09-2024 ED MED ADMINISTRATION DETAIL [employer] Medication Administration Record [address] [address] [id number] 10/09/2024 Patient: DALY EVANS Sex: Female : 1985 Age: 39y MEASUREMENTS: Wt: 90.7 kg, Ht/Jean-Paul: 67.0 in, BMI: 31.32 ALLERGIES: [place] Medication Ordered Medication Administration Date/Time Zofran IVP 4 mg 08:53 10/09 Zofran IVP 4 mg given via Site# 1. Allergies verified Given (NOW x1) and confirmed 5 rights. IV patency established. IV site checked: no 08:53 10/09/2024 pain, redness, or swelling. IV flushed thoroughly pre-medication Ariella Santamaria R.N. administration. IVP given by nurse. Information reviewed with Scanned patient including reason for taking this medication. - 08:55 Ariella Santamaria R.N. IV NS 0.9 % 1000 08:57 10/09 IV NS 0.9 % 1000 mL started in bag#1 1000 mL at Started mL at 999 mL/hr 999 mL/hr via Site# 1. Allergies verified and confirmed 5 rights. Via 08:57 10/09/2024 (NOW x1) IV pump. IV patency established. IV site checked: no pain, redness, Ariella Santamaria R.N. or swelling. IV flushed thoroughly pre-medication administration. Stopped Information reviewed with patient including reason for taking this 10:21 10/09/2024 medication. - 08:59 Shameka Sheehan R.N. Scanned 10:10/09 Medication Discontinued: bag #1 infused. Total amount infused: 1000 mL. IV patency established. IV site checked: no pain, redness, or swelling. IV flushed thoroughly post-medication administration. - 10:31 Ariella Santamaria R.N. 1 of 4 [employer] Medication Ordered Medication Administration Date/Time Reglan IVP 10 mg 09:49 10/09 Reglan IVP 10 mg given via Site# 1. Allergies verified Given (NOW x1) and confirmed 5 rights. IV patency established. IV site checked: no 09:49 10/09/2024 pain, redness, or swelling. IV flushed thoroughly pre-medication Ariella Santamaria R.N. administration. IVP given by nurse. Information reviewed with Scanned patient including reason for taking this medication. - 09:50 Ariella Santamaria R.N. Pantoprazole 12:24 10/09 Pantoprazole (Protonix) 80 mg LOAD IVPB 80 mg Started (Protonix) 80 mg started at 200 mL/hr diluted in sodium chloride IVPB 0.9 % 100 mL 12:24 10/09/2024 LOAD IVPB 80 mg via Site# 2. Allergies verified and confirmed 5 rights. Via IV pump. Ariella Santamaria R.N. diluted in sodium IV patency established. IV site checked: no pain, redness, or Stopped chloride IVPB 0.9 % swelling. IV flushed thoroughly pre-medication administration. 13:10/09/2024 100 mL (NOW x1) Information reviewed with patient including reason for taking this Ariella Santamaria R.N. medication. - 12:24 Ariella Santamaria R.N. Not Scanned 13:10/09 Medication Discontinued: IV infused. Total amount infused: 100 mL. IV patency established. IV site checked: no pain, redness, or swelling. IV flushed thoroughly post-medication administration. - 13:35 Ariella Santamaria R.N. IV NS 0.9 % 1000 12:10/09 IV NS 0.9 % 1000 mL started in bag#2 1000 mL at Started mL at 999 mL/hr 999 mL/hr via Site# 2. Allergies verified and confirmed 5 rights. Via 12:10/09/2024 (NOW x1) IV pump. IV patency established. IV site checked: no pain, redness, Ariella Santamaria R.N. or swelling. IV flushed thoroughly pre-medication administration. Stopped Information reviewed with patient including reason for taking this 13:35 10/09/2024 medication. - 12:23 Harvey SheehanN. Ariella Santamaria R.N. Scanned 13:10/09 Medication Discontinued: bag #2 infused. Total amount infused: 1000 mL. IV patency established. IV site checked: no pain, redness, or swelling. IV flushed thoroughly post-medication administration. - 13:35 Ariella Santamaria R.N. 2 of 4 [employer] Medication Ordered Medication Administration Date/Time Haloperidol IVP 2 12:10/09 Haloperidol IVP 2 mg given via Site# 2. Allergies Given mg (NOW x1) verified and confirmed 5 rights. IV patency established. IV site 12:10/09/2024 checked: no pain, redness, or swelling. IV flushed thoroughly Ariella Santamaria R.N. pre-medication administration. IVP given by nurse. Information Scanned reviewed with patient including reason for taking this medication. Medication Wastage: 3 mg wasted. - 12:21 Ariella Santamaria R.N. Magnesium Sulfate 13:25 10/09 Magnesium Sulfate 4gm/50mL Premix IVPB 2 g Started 4gm/50mL Premix started at 25 mL/hr via Site# 2. Allergies verified and confirmed 5 13:25 10/09/2024 IVPB 2 g at 25 rights. Via IV pump. IV patency established. IV site checked: no Ariella Santamaria R.N. mL/hr (NOW x1, pain, redness, or swelling. IV flushed thoroughly pre-medication Stopped HIGH ALERT administration. Information reviewed with patient including reason 14:40 10/09/2024 MEDICATION) for taking this medication. Medication Wastage: 2 g wasted. - 13:29 Shameka Sheehan R.N. Scanned 13:10/09 Medication Co-sign: Verified dosage. - 13:29 Johnathan (more content not included)... Normal [facility] ED NURSES CLINICAL NOTEon ED NURSES CLINICAL NOTE Nurse Narrative Nurse Clinical [address] [address] [phone] 10/09/2024 08:13:00 Patient: DALY EVANS Sex: Female : 1985 Age: 39y Disposition: Transfer to [facility] Disposition Decision Time: 12:52 10/09/2024 Departure Time: 15:44 10/09/2024 TRIAGE Arrived by EMS. Historian: ([facility] records and patient). Primary physician (Krystian). Triage time: 08:21 10/09/2024. Acuity: LEVEL 2. Chief Complaint: ACCIDENTAL INGESTION (Pt received 115mg of methadone from a nurse at the [facility] that was not prescribed to her.). This occurred today. ( n/v; dizziness). SEPSIS SCREEN: NEGATIVE. SIRS criteria negative: heart rate greater than 90. No possible sources of infection. -- 08:35 10/09/24 CHARLY Vidales R.N. 08:34 10/09/24. BP: 111/81 MAP: 91. HR: 114. RR: 10. O2 saturation: 96% Temperature: 98.8 F (oral). Pain level now 0/10. -- 08:10/09/24 CHARLY Vidales R.N. Measurements: 08:33 10/09/24 Wt: 90.7 kg, Ht/Jean-Paul: 67.0 in, BMI: 31.32 -- 08:10/09/24 CHARLY Vidales R.N. Medications: enoxaparin 100 mg/mL subcutaneous syringe: twice a day. (give per [place] MAR dose of 0.95ml) -- 09:10/09/24 CHARLY Vidales R.N. atorvastatin 40 mg tablet: 1 tablet once a day. -- 09:10/09/24 CHARLY Vidales R.N. 1 of 8 Nurse Narrative aspirin 81 mg chewable tablet: 1 tablet once a day. -- 09:10/09/24 CHARLY Vidales R.N. Kaitlyn 0.25 mg-0.035 mg tablet -- 09:10/09/24 CHARLY Vidales R.N. vancomycin 1.5 gram/300 mL in diluent combination IV piggyback -- 09:10/09/24 CHARLY Vidales R.N.Updated through eRx -- 09:10/09/24 CHARLY Vidales R.N. pantoprazole 40 mg tablet,delayed release -- 09:10/09/24 CHARLY Vidales R.N.Updated through eRx -- :10/09/24 CHARLY Vidales R.N. olanzapine 20 mg tablet -- 09:10/09/24 CHARLY Vidales R.N.Updated through eRx -- :10/09/24 CHARLY Vidales R.N. loperamide 2 mg capsule -- 09:10/09/24 HCARLY Vidales R.N.Updated through eRx -- 09:10/09/24 CHARLY Vidales R.N. Lantus Solostar U-100 Insulin 100 unit/mL (3 mL) subcutaneous pen -- 09:10/09/24 CHARLY Vidales R.N.Updated through eRx -- :10/09/24 CHARLY Vidales R.N. gabapentin 600 mg tablet -- 09:10/09/24 CHARLY Vidales R.N.Updated through eRx -- 09:10/09/24 CHARLY Vidales R.N. ferrous sulfate 325 mg (65 mg iron) tablet -- 09:10/09/24 CHARLY Vidales R.N.Updated through eRx -- 09:10/09/24 CHARLY Vidales R.N. escitalopram 20 mg tablet -- 09:10/09/24 CHARLY Vidales R.N.Updated through eRx -- :10/09/24 CHARLY Vidales R.N. Glucose Gel 40 % oral gel: 32 as needed. (take 32 ml by mouth as needed for blood glucose is less than 70mg/dl) -- 09:10/09/24 CHARLY Vidales R.N. ondansetron 4 mg disintegrating tablet: 1 tablet every six hours as needed. -- 09:10/09/24 CHARLY Vidales R.N. acetaminophen 325 mg chewable tablet: 1 tablet every six hours as needed. -- 09:10/09/24 CHARLY Vidales R.N. vancomycin 1.5 gram/300 mL in diluent combination IV piggyback: 1500 mg twice a day. -- 09:10/09/24 CHARLY Vidales R.N. pantoprazole 40 mg tablet,delayed release: 1 tablet once a day. -- 09:10/09/24 CHARLY Vidales R.N. olanzapine 20 mg tablet: 1 tablet once a day. -- :10/09/24 CHARLY Vidales R.N. magnesium 400 mg (as magnesium oxide) tablet: 1 tablet once a day. -- 09:10/09/24 CHARLY Vidales R.N. loperamide 2 mg capsule: 1 capsule four times a day. (before meals and at bedtime) -- 09:10/09/24 CHARLY Vidales R.N. Jose Davidclementus Orozcoostar U-100 Insulin 100 unit/mL (3 mL) subcutaneous pen: 10 unit once a day. -- 09:30 10/09/24 CHARLY Vidales R.N. gabapentin 600 mg tablet: 1 tablet three times a day. -- 09:10/09/24 CHARLY Vidales R.N. ferrous sulfate 325 mg (65 mg iron) tablet: 1 tablet once a day. -- 09:10/09/24 CHARLY Vidales R.N. escitalopram 20 mg tablet: 1 tablet once a day. -- 09:10/09/24 CHARLY Vidales R.N. 2 of 8 Nurse Narrative Allergies: Pachuta -- 08:31 10/09/24 CHARLY Vidales R.N. Home Medications/Allergy Information Source: patient, [facility] record -- 08:28 10/09/24 CHARLY Vidales R.N. Problems: Depression -- 08:31 10/09/24 CHARLY Vidales R.N. Diabetes Mellitus -- 08:31 10/09/24 CHARLY Vidales R.N. 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 Monoclonal gammopathy (clinical) -- 08:51 10/09/24 CHARLY Vidales R.N. Thrombophilia -- 08:59 10/09/24 CHARLY Vidales R.N. Hyperlipidemia -- 08:59 10/09/24 CHARLY Vidales R.N. embolism and thrombosis of thoracic aorta -- 09:00 10/09/24 CHARLY Vidales R.N. 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 Iron deficiency anemia -- 09:02 (more content not included)... Normal [facility] ED ORDER SHEET (CPOE ONLY)on 10-09-2024 ED ORDER SHEET (CPOE ONLY) Order Sheet Order Sheet [address] [place] [address] [id number] 10/09/2024 [id number] Sex: Female : 1985 Age: 39y MEASUREMENTS: Wt: 90.7 kg, Ht/Jean-Paul: 67.0 in, BMI: 31.32 ALLERGIES: Pachuta MEDICATION/IV/DRIP/FLUID ORDERS Order Description Priority Entered Acknowledged Completed Zofran IVP4 mg (NOW x1) 08:23 10/09/2024 08:40 08:55 Farzaneh Avilez D.O. 10/09/2024 10/09/2024 Ariella Sheehan, R.N. R.N. IV NS 0.9 %1000 mL at 999 08:32 10/09/2024 08:40 08:59 mL/hr (NOW x1) Farzaneh Avilez D.O. 10/09/2024 10/09/2024 Ariella Sheehan R.N. R.N. Reglan IVP10 mg (NOW x1) 09:45 10/09/2024 09:46 09:50 Farzaneh Avilez D.O. 10/09/2024 10/09/2024 Ariella Sheehan, R.N. R.N. Reason for ordering with alerts: Benefits outweigh risks --09:45 10/09/2024 Farznaeh Avilez D.O. Pantoprazole (Protonix) 80 mg 10:12 10/09/2024 10:30 12:24 LOAD IVPB80 mg diluted in Farzaneh Avilez D.O. 10/09/2024 10/09/2024 sodium chloride IVPB 0.9 % 100 Ariella Sheehan, 1 of 5 Order Sheet mL (NOW x1) R.N. R.N. Pantoprazole (Protonix) 80 mg 12:10 10/09/2024 12:24 LOAD IVPB80 mg diluted in Ariella Santamaria, R.N. 10/09/2024 sodium chloride IVPB 0.9 % 100 Ariella Reddyder, mL (NOW x1) R.N. IV NS 0.9 %1000 mL at 999 10:28 10/09/2024 10:30 12:23 mL/hr (NOW x1) Farzaneh Avilez D.O. 10/09/2024 10/09/2024 Ariella Sheehan R.N. RPriscilaNPriscila Reason for ordering with alerts: Clinical consideration given --10:28 10/09/2024 Farzaneh Avilez D.O. Haloperidol IVP2 mg (NOW x1) 10:29 10/09/2024 10:30 12:21 Farzaneh Avilez D.O. 10/09/2024 10/09/2024 Ariella Sheehan R.N. RPriscilaNPriscila Reason for ordering with alerts: Clinical consideration given --10:29 10/09/2024 Farzaneh Avilez D.O. Haloperidol IVP2 mg (NOW x1) 12:08 10/09/2024 12:24 Ariella Santamaria R.N. 10/09/2024 Ariella Santamaria R.N. Reason for ordering with alerts: Clinical consideration given --10:29 10/09/2024 Farzaneh Avilez D.O. MORPHine IVP2 mg (NOW x1, 12:03 10/09/2024 Cancelled: Other HIGH ALERT MEDICATION) Farzaneh Avilez D.O. 12:10 EDT Farzaneh Avilez D.O. Reason for ordering with alerts: Benefits outweigh risks --12:03 10/09/2024 Farzaneh Avilez D.O. MORPHine IVP2 mg (NOW x1, 12:06 10/09/2024 Cancelled: Other HIGH ALERT MEDICATION) Farzaneh Avilez D.O. 12:10 EDT Farzaneh Avilez D.O. Reason for ordering with alerts: Benefits outweigh risks --12:03 10/09/2024 Farzaneh Avilez, 2 of 5 Order Sheet Renae Haloperidol IVP2 mg 12:19 10/09/2024 12:24 Farzaneh Avilez D.O. 10/09/2024 Ariella Santamaria R.N. Reason for ordering with alerts: Benefits outweigh risks --12:19 10/09/2024 Farzaneh Avilez D.O. Magnesium Sulfate 4gm/50mL 12:29 10/09/2024 12:30 13:29 Premix IVPB2 g at 25 mL/hr Farzaneh Avilez D.O. 10/09/2024 10/09/2024 (NOW x1, HIGH ALERT Ariella Sheehan, MEDICATION) R.N. R.N. potassium 14:42 10/09/2024 14:49 15:19 chloride(K-Philip)20mEq/100m l Farzaneh Avilez D.O. 10/09/2024 10/09/2024 IVPB [id number] mEq at 50 mL/hr Ariella Sheehan, (NOW x1, HIGH ALERT R.N. R.N. MEDICATION) potassium 14:42 10/09/2024 Cancelled: Patient Off Unit chloride(K-Philip)20mEq/100m l Farzaneh Avilez D.O. 16:22 EDT Ariella Santamaria R.N. IVPB [id number] mEq at 50 mL/hr (NOW x1, HIGH ALERT MEDICATION) Reason for ordering with alerts: Clinical consideration given --14:42 10/09/2024 Farzaneh Avilez D.O. LAB ORDERS Order Description Priority Entered Acknowledged Collected Completed EKG - ED Stat Stat 08:22 10/09/2024 08:40 10/09/2024 09:12 10/09/2024 Ariella Harrington Natalie Yoder, D.O. R.N. R.NPriscila CBC w Diff Stat Stat 08:22 10/09/2024 08:40 10/09/2024 08:59 10/09/2024 Ariella Harrington Natalie Yoder, D.O. R.N. R.N. Troponin-I Stat Stat 08:22 10/09/2024 08:40 10/09/2024 08:59 10/09/2024 3 of 5 Order Sheet Ariella Harrington Natalie Yoder, D.O. R.N. R.N. CMP Stat Stat 08:22 10/09/2024 08:40 10/09/2024 08:59 10/09/2024 Ariella Harrington Natalie Yoder, D.O. R.N. R.N. Magnesium Stat Stat 09:42 10/09/2024 09:44 10/09/2024 12:24 10/09/2024 Ariella Harrington Natalie Yoder, D.O. R.N. RPriscilaNPriscila Occult Blood, Gastric Stat 09:43 10/09/2024 09:44 10/09/2024 12:24 10/09/2024 Stat Ariella Harrington Natalie Yoder, D.O. R.N. RIrene PT with INR Stat Stat 10:13 10/09/2024 10:30 10/09/2024 12:24 10/09/2024 Ariella Harrington Natalie Yoder, D.O. R.N. RPriscilaN. PTT Stat Stat 10:14 10/09/2024 10:30 10/09/2024 12:24 10/09/2024 Ariella Harrington Natalie Yoder, D.O. R.N. RIrene Haloperidol [CCL] Stat Stat 12:18 10/09/2024 12:24 10/09/2024 12:24 10/09/2024 Ariella Harrington, Na (more content not included)... Normal [facility] ED PHYSICIAN CLINICAL REPORT on 10-09-2024 ED PHYSICIAN CLINICAL REPORT Narrative Physician Clinical Narrative [address] [address] [id number] 10/09/2024 08:13:00 Patient: DALY EVANS Sex: Female : 1985 Age: 39y Disposition: Transfer to [facility] Disposition Decision Time: 12:52 10/09/2024 Measurements Wt: 90.7 kg, Ht/Jean-Paul: 67.0 in, BMI: 31.32 Initial Vital Sign Measured Time BP MAP HR RR O2Sat ETCO2 Temp Pain GCS RTS 08:31 10/09/2024 111 96% Time Seen: 08:24 10/09/2024. Arrived- By ambulance. Historian- patient. HISTORY OF PRESENT ILLNESS Chief Complaint: DRUG OVERDOSE. This occurred 3 1/2 hours ago ago. Single drug taken. Substance (#1)- Methadone 115 mg. No situational problems, alcohol recently or recent drug use. The symptoms are described as severe. The patient has been upset and confused. Similar symptoms previously. Recent medical care: Not recently seen/assessed. REVIEW OF SYSTEMS NEUROLOGICAL: The patient has had a headache and dizziness. GI: The patient has had vomiting. CONSTITUTIONAL: No fever. THROAT: No sore throat. RESPIRATORY: No cough or difficulty breathing. 1 of 15 Narrative Status: Not . PAST HISTORY See nurses notes. 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 aspirin 81 mg chewable tablet: 1 tablet once a day. atorvastatin 40 mg tablet: 1 tablet once a day. enoxaparin 100 mg/mL subcutaneous syringe: twice a day. (give per [place] MAR dose of 0.95ml) escitalopram 20 mg tablet: 1 tablet once a day. ferrous sulfate 325 mg (65 mg iron) tablet: 1 tablet once a day. gabapentin 600 mg tablet: 1 tablet three times a day. 2 of 15 Narrative Glucose Gel 40 % oral gel: 32 as needed. (take 32 ml by mouth as needed for blood glucose is less than 70mg/dl) Lantus Solostar U-100 Insulin 100 unit/mL (3 mL) subcutaneous pen: 10 unit once a day. loperamide 2 mg capsule: 1 capsule four times a day. (before meals and at bedtime) magnesium 400 mg (as magnesium oxide) tablet: 1 tablet once a day. Kaitlyn 0.25 mg-0.035 mg tablet olanzapine 20 mg tablet: 1 tablet once a day. ondansetron 4 mg disintegrating tablet: 1 tablet every six hours as needed. pantoprazole 40 mg tablet,delayed release: 1 tablet once a day. vancomycin 1.5 gram/300 mL in diluent combination IV piggyback: 1500 mg twice a day. Allergies: Pachuta Home Medications/Allergy Information Source: patient, [facility] record - Jessica Vidales R.N., 10/09/2024 08:28 EDT SOCIAL HISTORY No alcohol use or drug use. FAMILY HISTORY Negative. ADDITIONAL NOTES The nursing notes have been reviewed. PHYSICAL EXAM Vital Signs: Have been reviewed. Appearance: Alert. Oriented X3. Patient in moderate distress. Eyes: No nystagmus. ENT: Normal ENT inspection. Neck: Normal inspection. CVS: Tachycardia. No cardiac murmur. 3 of 15 Narrative Respiratory: No respiratory distress. Breath sounds normal. Abdomen: Soft. Back: Normal inspection. Skin: Diaphoresis. Neuro: Alert. Oriented X 3. Cranial nerves normal (as tested). No motor deficit. Reflexes normal. LABS, X-RAYS, AND EKG Laboratory Tests: APTT Final STACEY: 10/09/2024 12:05:00 EDT MsgRcvd: 10/09/2024 12:43 EDT Lab Test Result Reference Status Received Comments 10/09/2024 12:43 PTT 30.8 sec 25.4 - 38.4 Final EDT CBC + DIFF Final STACEY: 10/09/2024 08:34:00 EDT MsgRcvd: 10/09/2024 09:22 EDT Lab Test Result Reference Status Received Comments 10/09/2024 09:22 CBC-COMPLETE CBC + DIFF Final EDT BLOOD COUNT 17.8 x 10/UL 10/09/2024 09:22 WBC 4.5 - 10.8 Final Above high normal EDT 10/09/2024 09:22 RBC 4.85 x 10/UL 4.10 - 5.30 Final EDT 10/09/2024 09:22 HEMOGLOBIN 12.3 g/dl 12.0 - 16.0 Final EDT 10/09/2024 09:22 HEMATOCRIT 37.0 % 34.0 - 46.0 Final EDT 4 of 15 Narrative Lab Test Result Reference Status Received Comments 76 fl 10/09/2024 09:22 MCV 80 - 99 Final Below low normal EDT 25 pg 10/09/2024 09:22 MCH 27 - 33 Final Below low normal EDT 10/09/2024 09:22 MCHC 33 X10 3 32 - 36 Final EDT 16.5 % 10/09/2024 09:22 RDW/CV 12.0 - 15.6 Final Above high normal EDT 657 x10/UL 10/09/2024 09:22 PLATELET 150 - 450 Fi (more content not included)... Normal [facility] ED [facility] 10-09-2024 ED SUPER BILL [address] [place] [address] [phone] 10/09/2024 Patient: DLAY EVANS Sex: Female : 1985 Age: 39y Facility Professional Category Item Description Code Code Quantity Fee Total Nurse/E/M EMERGENCY 921822 1 $0.00 $0.00 DEPT VISIT HIGH SEVERITYFUNCJ (41986-63) Nurse/IV/IM/Infusions Drip/IVPB initial 323156 1 $0.00 $0.00 (75937) Nurse/IV/IM/Infusions Drip/IVPB seq 400184 2 $0.00 $0.00 (12407) Nurse/IV/IM/Infusions Hydration 319346 1 $0.00 $0.00 additional hour (21138) Nurse/IV/IM/Infusions IVP additional 195908 2 $0.00 $0.00 push (54085) Nurse/IV/IM/Infusions IVP initial (67933) 063560 1 $0.00 $0.00 Grand $0.00 Total Providers Farzaneh Avilez D.O. 1 of 2 [place] Chief Complaint DRUG OVERDOSE. Principal Diagnosis Accidental overdose with methadone. Occult and minor GI bleed. Moderate acute renal failure. Hyperglycemia. Hypokalemia. Hypomagnesemia. ICD-10 Codes T40.3X1A: Poisoning by methadone, accidental (unintentional), initial encounter N19: Unspecified kidney failure N17.9: Acute kidney failure, unspecified E83.42: Hypomagnesemia E87.6: Hypokalemia K52.9: Noninfective gastroenteritis and colitis, unspecified R73.9: Hyperglycemia, unspecified K92.2: Gastrointestinal hemorrhage, unspecified 2 of 2 Normal [facility] ED VISIT SUMMARYon ED VISIT SUMMARY Visit Overview Visit Overview [address] [address] [id number] 10/09/2024 Patient: DALY EVANS Sex: Female : 1985 Age: 39y 10/09/2024 04:30 PM EDT ED Arrival:08:13 10/09/2024 EDT Status:not Recent Travel:no Language:eng Adv Directive: Isolation Status: Ethnicity:N Fall Risk:risk Infectious Disease Exposure:no Measurements:5'7 / 170.2 Self-Harm Status:risk Sepsis Screen:negative cm 200.0 lb / 90.7 kg Chief Complaint:ACCIDENTAL INGESTION, ([place]), (n/v; dizziness), and (Pt received 115mg of [facility]adone [facility] at the [facility] that was not prescribed to her. ) ALLERGIES Pachuta HOME MEDICATIONS acetaminophen 325 mg chewable tablet: 1 tablet every six hours as needed. aspirin 81 mg chewable tablet: 1 tablet once a day. atorvastatin 40 mg tablet: 1 tablet once a day. Visit Overview enoxaparin 100 mg/mL subcutaneous syringe: twice a day. (give per [place] MAR dose of 0.95ml) escitalopram 20 mg tablet: 1 tablet once a day. ferrous sulfate 325 mg (65 mg iron) tablet: 1 tablet once a day. gabapentin 600 mg tablet: 1 tablet three times a day. Glucose Gel 40 % oral gel: 32 as needed. (take 32 ml by mouth as needed for blood glucose is less than 70mg/dl) Lantus Solostar U-100 Insulin 100 unit/mL (3 mL) subcutaneous pen: 10 unit once a day. loperamide 2 mg capsule: 1 capsule four times a day. (before meals and at bedtime) magnesium 400 mg (as magnesium oxide) tablet: 1 tablet once a day. Kaitlyn 0.25 mg-0.035 mg tablet olanzapine 20 mg tablet: 1 tablet once a day. ondansetron 4 mg disintegrating tablet: 1 tablet every six hours as needed. pantoprazole 40 mg tablet,delayed release: 1 tablet once a day. vancomycin 1.5 gram/300 mL in diluent combination IV piggyback: 1500 mg twice a day. PAST MEDICAL HISTORY / PROBLEMS Bipolar Disorder Colostomy (procedure) Depression Diabetes Mellitus Gastroesophageal Reflux Disease Hyperlipidemia Immunizations: up-to-date Insomnia Iron deficiency anemia Monoclonal gammopathy (clinical) Panic disorder See nurses notes superior mesenteric artery injury Thrombophilia Vitamin D deficiency PAST SURGICAL HISTORY abd surgery with colostomy Carpal Tunnel Surgery Visit Overview Cholecystectomy SOCIAL HISTORY Smoking status: No Alcohol use: No Drug use: No ED COURSE MEDICATIONS GIVEN IN EMERGENCY DEPARTMENT 08:53 10/09/24 Zofran IVP 4 mg 08:57 10/09/24 IV NS 0.9 % 1000 mL 999 mL/hr 09:49 10/09/24 Reglan IVP 10 mg 12:20 10/09/24 Haloperidol IVP 2 mg 12:22 10/09/24 IV NS 0.9 % 1000 mL 999 mL/hr Pantoprazole (Protonix) 80 mg LOAD IVPB 80 mg diluted in sodium chloride IVPB 0.9 12:24 10/09/24 % 100 mL 200 mL/hr 13:25 10/09/24 Magnesium Sulfate 4gm/50mL Premix IVPB 2 g 25 mL/hr 15:15 10/09/24 potassium chloride(K-Philip)20mEq/100m l IVPB Premix 20 mEq 50 mL/hr IV SITE INFORMATION 08:49 10/09/24 Site #1 left AC PICC, 20g. Saline lock. 11:59 10/09/24 Site #2 right AC, 20g. Saline lock. INTAKE OUTPUT REASSESMENT (most recent) 13:15 10/09/24. Overall patient status is improved- the patient states feels better (Pt ambulates to bathroom and voids urine, and empties a small amount from her colostomy bag). VITAL SIGNS First Vitals Last Vitals Temp 08:31 10/09/24 Temp 15:28 10/09/24 BP 08:31 10/09/24 BP 15:28 10/09/24 99/80 HR 08:10/09/24 111 HR 15:28 10/09/24 94 3 of 4 Visit Overview First Vitals Last Vitals RR 08:31 10/09/24 RR 15:28 10/09/24 O2 Sat 08:31 10/09/24 96% O2 Sat 15:28 10/09/24 Pain 08:31 10/09/24 Pain 15:28 10/09/24 ETCO2 08:10/09/24 ETCO2 15:28 10/09/24 GCS 08:31 10/09/24 GCS 15:28 10/09/24 RTS 08:31 10/09/24 RTS 15:28 10/09/24 PROCEDURES NURSING INTERVENTIONS LABS / STUDIES LABS / STUDIES ORDERED CBC w Diff CMP CT ABD/PEL wo Cont EKG - ED Haloperidol [CCL] Magnesium Occult Blood, Gastric PT with INR PTT Troponin-I LABS - ABNORMAL RESULTS CMP with eGFR POTASSIUM 2.3 mmol/L (LL) CLINICAL IMPRESSION ACCIDENTAL OVERDOSE WITH METHADONE HYPERGLYCEMIA HYPOKALEMIA HYPOMAGNESEMIA MODERATE ACUTE RENAL FAILURE OCCULT AND MINOR GI BLEED 4 of 4 Normal [facility] ED VITALS FLOW SHEETon 10-09 ED VITALS FLOW SHEET Vitals Vital Sign Flow Sheet [facility] [address] [place] [address] [phone] 10/09/2024 Patient: DALY EVANS Sex: Female : 1985 Age: 39y Measurements Wt: 90.7 kg, Ht/Jean-Paul: 67.0 in, BMI: 31.32 Measured Time BP MAP HR RR O2Sat ETCO2 Temp Pain GCS RTS 15:28 10/09/2024 99/80 83 94 15:16 10/09/2024 95 100% 15:07 10/09/2024 124/86 92 77 15:06 10/09/2024 86 98% 14:56 10/09/2024 80 96% 14:51 10/09/2024 79 93% 14:47 10/09/2024 121/76 92 80 14:46 10/09/2024 83 97% 14:41 10/09/2024 81 95% 14:36 10/09/2024 79 94% 14:31 10/09/2024 77 92% 14:27 10/09/2024 112/76 87 77 14:21 10/09/2024 78 93% 14:16 10/09/2024 82 92% 14:11 10/09/2024 82 94% 1 of 4 Vitals Measured Time BP MAP HR RR O2Sat ETCO2 Temp Pain GCS RTS 14:08 10/09/2024 117/76 86 80 14:06 10/09/2024 80 93% 14:01 10/09/2024 83 95% 13:56 10/09/2024 80 93% 13:51 10/09/2024 81 92% 13:47 10/09/2024 111/79 87 80 13:46 10/09/2024 81 92% 13:41 10/09/2024 80 94% 13:36 10/09/2024 81 94% 13:28 10/09/2024 112/83 88 84 13:06 10/09/2024 82 94% 13:01 10/09/2024 81 94% 12:56 10/09/2024 92 95% 12:51 10/09/2024 92 93% 12:47 10/09/2024 114/81 89 84 12:46 10/09/2024 84 94% 12:41 10/09/2024 85 94% 12:36 10/09/2024 95 97% 12:31 10/09/2024 85 94% 12:28 10/09/2024 111/79 89 87 11:51 10/09/2024 101/76 83 91 11:31 10/09/2024 103 97% 11:26 10/09/2024 88 96% 11:21 10/09/2024 97 98% 11:21 10/09/2024 99/71 78 95 2 of 4 Vitals Measured Time BP MAP HR RR O2Sat ETCO2 Temp Pain GCS RTS 11:16 10/09/2024 94 98% 11:11 10/09/2024 92 96% 11:06 10/09/2024 89 97% 11:06 10/09/2024 104/70 78 90 11:01 10/09/2024 96 98% 10:56 10/09/2024 93 95% 10:51 10/09/2024 95 96% 10:51 10/09/2024 106/75 81 93 10:46 10/09/2024 94 98% 10:41 10/09/2024 96 96% 10:36 10/09/2024 100/73 80 94 10:36 10/09/2024 93 96% 10:31 10/09/2024 97 97% 10:22 10/09/2024 108 98% 10:21 10/09/2024 91/63 72 89 10:17 10/09/2024 94 94% 10:11 10/09/2024 95 95% 10:06 10/09/2024 89 95% 10:06 10/09/2024 107/73 81 88 10:01 10/09/2024 90 95% 09:56 10/09/2024 96 97% 09:51 10/09/2024 107/76 86 100 09:36 10/09/2024 98 96% 09:36 10/09/2024 104/79 85 95 09:31 10/09/2024 96 96% 3 of 4 Vitals Measured Time BP MAP HR RR O2Sat ETCO2 Temp Pain GCS RTS 09:26 10/09/2024 95 96% 09:21 10/09/2024 100 95% 09:21 10/09/2024 107/81 88 102 09:16 10/09/2024 107 95% 09:11 10/09/2024 106 93% 09:06 10/09/2024 106 96% 09:06 10/09/2024 106/79 86 103 09:01 10/09/2024 106 96% 08:56 10/09/2024 114 97% 08:51 10/09/2024 113 97% 08:51 10/09/2024 108/81 88 113 08:46 10/09/2024 109 96% 08:41 10/09/2024 112 98% 08:36 10/09/2024 111 96% 08:36 10/09/2024 115/87 95 109 08:34 10/09/2024 111/81 91 114 10 96% 98.8 F 0 08:31 10/09/2024 111 96% 4 of 4 Normal [facility] HISTORY PHYSICALon HISTORY PHYSICAL HNO ID: [id number] Author: ROSA MARIA BULLOCK MD Service: General Internal Medicine Author Type: Physician Type: H&P Filed: 10/09/2024 17:16 Note Text: DEPARTMENT OF HOSPITAL MEDICINE HISTORY AND PHYSICAL EXAM SERVICE DATE: 10/09/2024 SERVICE TIME: 5:06 PM Primary Care Physician: Fredrick Boland DO Subjective CHIEF COMPLAINT: Accidental overdose HPI: This is a 39 year old female with past medical history of bipolar 2, panic disorder, ELIJAH, obesity, DVT on Lovenox, status post colostomy who presented to [facility] ED for accidental overdose. Patient resides in a nursing facility, approximately 1 month ago was taken to main campus for colostomy after developing bowel obstruction. During the hospitalization developed DVT and was placed on Lovenox. Earlier this morning patient was accidentally given 115 mg of methadone at her facility. Initially asymptomatic however she developed diaphoresis/nausea and received Narcan x 2. She then had several episodes of coffee-ground emesis concerning for GI bleed as she is on anticoagulation. Labs pertinent for WBC 17, hemoglobin 12.3 which is up from prior hemoglobin of around 8 and likely indication of hemoconcentration. Creatinine 1.72, potassium 2.3 magnesium 1.5 all likely secondary to acute GI losses. Patient had midline placed and is receiving IV fluids. She is reportedly hemodynamically stable and more alert/oriented at this time. Transfer being requested for further monitoring of accidental overdose and evaluation by GI for possible scope. Patient evaluated bedside following transfer. Alert and oriented x 3, no acute distress. Has no acute complaints noted at this time, no further episodes of emesis reported discussed plan of care including evaluation by GI due to concern for GI bleed, JONATAN workup and overnight monitoring. She verbalized understanding of the plan as outlined above and was agreeable. All questions answered at this time. PAST MEDICAL HISTORY Diagnosis Date Attempted suicide ([facility]) polysubstance Bipolar depression ([facility]) [facility] Camelia Whyte Gestational diabetes mellitus in ([facility]) Impaired fasting blood sugar 06/2015 a1c 5.7% at diagnosis Iron deficiency anemia Vitamin D deficiency PAST SURGICAL HISTORY Procedure Laterality Date CARPAL TUNNEL bilateral DELIVERY ONLY 08/05/2012 LAPAROSCOPY SURG CHOLECYSTECTOMY 07/01/2018 Cholecystectomy, lap PAST SURGICAL HISTORY OF 08/26/2024 INSERTION TUNNELED CV CATH PAST SURGICAL HISTORY OF 08/23/2024 REPAIR SIMPLE SUPERFICIAL WOUND ABDOMEN PAST SURGICAL HISTORY OF 08/22/2024 ENTETECTOMY RESECTION small intestine w/ enterostomy PAST SURGICAL HISTORY OF 08/20/2024 Embolectomy popliteal FAMILY HISTORY Problem Relation Age of Onset Lipids Mother Headache Mother migraine other (back pain) Mother Hypertension Father Heart Father atrial fib Thyroid Father other (aortic aneurysm) Father Psychiatry Brother Diabetes Maternal Grandmother Diabetes Maternal Uncle Diabetes Maternal Uncle Diabetes Maternal Uncle Diabetes Maternal Uncle Aneurysm No Family History Social History Tobacco Use Smoking status: Former Current packs/day: 0.00 Types: Cigarettes Quit date: 04/13/2015 Years since quittin.4 Smokeless tobacco: Never Tobacco comments: Pateint only uses the Vape She doesnt smoke nicotine Patient quit smoking 08/20/2024 Vaping Use Vaping status: Former Quit date: 09/17/2024 Substance Use Topics Alcohol use: Not Currently Comment: occassional Drug use: No MEDICATIONS: Reviewed Prior to Admission Medications Prescriptions Last Dose Informant Patient Reported? Taking? OLANZapine (ZYPREXA) 20 mg tablet Yes No Sig: Take 20 mg by mouth daily at bedtime. OTC NUTRITIONAL SUPPLEMENT Yes No Sig: Total Parenteral Nutrition: 90ml/hour for 1 hour, 182 ml/hr for 10 hours, 90ml/hr for 1 hour. Special Instructions: follow instructions on bag for missing additional solutions. flush with 10 cc NS before and after admin. Once a day aspirin 81 mg chewable tablet No No Sig: Take 1 tablet by mouth once daily. atorvastatin (LIPITOR) 40 mg tablet No No Sig: Take 1 tablet by mouth daily at bedtime. dextrose (TRUEPLUS) 15 gram/32 mL oral gel No No Sig: Take 32 mL by mouth as needed (blood glucose is less than 70 mg/dL). enoxaparin (LOVENOX) 100 mg/mL syrg No No Sig: Inject 0.95 mL subcutaneously every 12 hours. escitalopram oxalate (LEXAPRO) 20 mg tablet No No Sig: Take 2 tablets by mouth once daily. Patient taking differently: Take 20 mg by mouth once daily. gabapentin (NEURONTIN) 600 mg tablet No No Sig: Take 1 tablet by mouth every 8 hours for 90 days. insulin lispro 100 unit/mL injection No No Sig: Inject 0-10 Units subcutaneously with meals and at bedtime. insulin lispro 100 unit/mL injection No No Sig: Inject 0-10 Units subcutaneously once daily. Daily @ 3AM Patient ta (more content not included)... Normal [facility] MAGNESIUMon 10-09-2024 Magnesium [Mass/Vol] 1.5 mg/dL Low 1.8 - 2.4 [facility] Comment on above: Performed By: #### 2 02562 #### [place] [address] OCCULT BLOOD GASTRICon 10-09 OCCULT BLOOD GASTRIC Normal [facility] Comment on above: Result Comment: { OC CULT BLOOD POSITIVE (NEGATIVE ) { SPECIMEN GASTRIC ASPIRATE Performed By: #### 2 86074 #### [facility],[address] [place] [address] pH (Bld) 4 [pH] Normal [facility] Comment on above: Performed By: #### 2 73021 #### [facility],[address] [place], [place] [address] PROTHROMBIN TIME AND INRon 0 10-09-2024 INR Coag (PPP) [Relative time] 1.3 {INR} High 0.8 - 1.2 [facility] Comment on above: Result Comment: T HE HEMOSIL THROMBOPLASTIN REAGENT USED IN THE PROTHROMBIN TIME TEST INTERACTS WITH THE DRUG CUBICIN (DAPTOMYCIN) AND WILL RESULT IN FALSELY ELEVATED PT / INR RESULTS INR INTERPRETATION INR INDICATION PREVENTION AND TREATMENT OF THROMBOEMBOLISM ASSOCIATED WITH: 2.0 - 3.0 ATRIAL FIBRILLATION, BIOPROSTHETIC HEART VALVES, PULMONARY EMBOLISM, VENOUS THROMBOSIS, SYSTEMIC EMBOLISM POST MYOCARDIAL INFARCTION 2.5 - 3.5 MECHANICAL HEART VALVES Performed By: #### 2 14529 #### [facility],[address] [place] [address] PROTHROMBIN TIME AND INR Normal [facility] Comment on above: Result Comment: PROT HROMBIN TIME AND INR Performed By: #### 2 33312 #### [facility],[address] [place] [address] PT-COUMADIN 14.2 sec High 9.3 - 14.1 [facility] Comment on above: Performed By: #### 2 93050 #### [facility],[address] [place], [place] [id number] TROPONINon 10-09-2024 HS TROPONIN 6.2 pg/mL Normal 0.0 - 51.4 [facility] Comment on above: Performed By: #### 2 03442 #### [facility],[address] [place], [place] [id number] US KIDNEY/BLADDERon 10-10-19 25 US KIDNEY/BLADDER * * *Final Report* * * DATE OF EXAM: Oct 09 2024 7:04PM [facility] 1055 - US KIDNEY/BLADDER / PROCEDURE REASON: Kidney failure, acute * * * * Physician Interpretation * * * * EXAMINATION: RENAL ULTRASOUND CLINICAL HISTORY: Kidney failure, acute TECHNIQUE: Sonography of the kidneys and urinary bladder was performed. Images were obtained and stored in a permanent archive. MQ: [id number] COMPARISON: 09/02/2024 RESULT: Right Kidney: -Renal length: 11.6 cm -Parenchyma: Normal parenchymal echogenicity. Normal parenchymal thickness. -Collecting system: No hydronephrosis. -Calculus: No echogenic, shadowing calculus. -Lesion: None. Left Kidney: -Renal length: 11.3 cm -Parenchyma: Normal parenchymal echogenicity. Normal parenchymal thickness. -Collecting system: No hydronephrosis. -Calculus: No echogenic, shadowing calculus. -Lesion: None. Bladder: The prevoid volume is estimated to be 510 cc. There appears to be a small amount of layering debris in the dependent portion of the bladder lumen. IMPRESSION: 1. No hydronephrosis or nephrolithiasis demonstrated. 2. Suggestion of small amount of debris in the bladder lumen; please correlate with urinalysis. [employer] Loader: NANCY Transcribe Date/Time: Oct 10 2024 4:59A Dictated by : CHRISTIAN LEE MD This examination was interpreted and the report reviewed and electronically signed by: CHRISTIAN LEE MD on Oct 10 2024 5:02AM EST [id number] Normal [facility] Vancomycin [place] SerPl-mCncon 10-09-2024 Vancomycin random [Mass/Vol] 11.1 ug/mL Normal 10.0-25.0 [facility] Comment on above: Order Comment: Speci men Type: BLOOD SPECIMEN Ordering Facility: [facility] Address: [address] [place] [address] [place] [address] Result Comment: Refe rence ranges and high/low indicator flags are provided as general guidelines only. The treating physician must determine appropriate target levels/dosing based on the specific clinical situation. Performed By: #### 4 091-5 #### [facility] CLIA [id number] [facility] [place] [address] [place] CBC + DIFFon 10-04-2024 Baso # 0.02 x10EE3/UL Normal 0.00 - 0.10 [facility] Comment on above: Performed By: #### 2 67265 #### [facility],[address] [place] [address] Basophils/100 WBC (Bld) 0.3 % Normal 0.0 - 2.0 [facility] Comment on above: Performed By: #### 2 45548 #### [facility],[address] [place] [address] CBC + DIFF Normal [facility] Comment on above: Result Comment: CBC- COMPLETE BLOOD COUNT Performed By: #### 2 28618 #### [facility],[address] [place] [address] EO # 0.16 x10EE3/UL Normal 0.00 - 0.50 [facility] Comment on above: Performed By: #### 2 19890 #### [facility],[address] [place] [address] Eosinophils/100 WBC (Bld) 2.7 % Normal 0.0 - 7.0 [facility] Comment on above: Performed By: #### 2 22107 #### [facility],[address] [place] [address] Erythrocyte distribution width (RBC) [Ratio] 15.9 % High 12.0 - 15.6 [facility] Comment on above: Performed By: #### 2 84996 #### [facility],[address] [place], [place] [id number] Hematocrit (Bld) [Volume fraction] 29.2 % Low 34.0 - 46.0 [facility] Comment on above: Performed By: #### 2 01711 #### [facility],[address] [place] [address]90 Hemoglobin (Bld) [Mass/Vol] 9.7 g/dL Low 12.0 - 16.0 [facility] Comment on above: Performed By: #### 2 44631 #### [facility],[address] [place] [address] Lymph # 2.40 x10EE3/UL Normal 0.80 - 2.80 [facility] Comment on above: Performed By: #### 2 49099 #### [place] [address] Lymphocytes/100 WBC (Bld) 39.2 % Normal 20.0 - 45.0 [facility] Comment on above: Performed By: #### 2 15252 #### [facility],[address] [place] [address] MANUAL DIFF N/A Normal [facility] Comment on above: Performed By: #### 2 59985 #### [place] [address] MCH (RBC) [Entitic mass] 26 pg Low 27 - 33 [facility] Comment on above: Performed By: #### 2 85366 #### [place] [address] MCHC 33 X10 3 Normal 32 - 36 [facility] Comment on above: Performed By: #### 2 60923 #### [place] [address] MCV (RBC) [Entitic vol] 77 fL Low 80 - 99 [facility] Comment on above: Performed By: #### 2 77695 #### [place] [address] Foster # 0.56 x10EE3/UL Normal 0.20 - 1.00 [facility] Comment on above: Performed By: #### 2 40085 #### [place] [address] MONOS % 9.2 % Normal 0.0 - 10.0 [facility] Comment on above: Performed By: #### 2 17055 #### [place] [address] Morphology Stan (Bld) [Interp] N/A Normal [facility] Comment on above: Performed By: #### 2 42254 #### [facility],[address] [place] [address]309 Neut # 2.99 x10EE3/UL Normal 1.50 - 7.10 [facility] Comment on above: Performed By: #### 2 64529 #### [place] [address] Neutrophils/100 WBC (Bld) 48.7 % Normal 46.0 - 76.0 [facility] Comment on above: Performed By: #### 2 84231 #### [place] [id number] PLATELET 504 x10EE3/UL High 150 - 450 [facility] Comment on above: Performed By: #### 2 90418 #### [place] [address] Platelet mean volume (Bld) [Entitic vol] 7.8 fL Normal 6.6 - 10.5 [facility] Comment on above: Result Comment: AUTO MATED DIFFERENTIAL Performed By: #### 2 31193 #### [address] [address] RBC 3.79 x 10EE6/UL Low 4.10 - 5.30 [facility] Comment on above: Performed By: #### 2 60795 #### [place] [id number] WBC 6.1 x 10EE3/UL Normal 4.5 - 10.8 [facility] Comment on above: Performed By: #### 2 20990 #### [place] [id number] VANCOMYCIN TROUGHon 10-04-19 25 VANCOMYCIN,TROUGH 11.5 ug/mL High 5.0 - 10.0 [facility] Comment on above: Performed By: #### 2 93475 ####[facility],[address] [place] [address] CBC W Ordered Manual Differe ntial panel (Bld)on 10-02-2024 Basophils (Bld) [#/Vol] 0.04 10*3/uL [facility] Basophils/100 WBC (Bld) 0.5 % [facility] Differential cell count method Nom (Bld) Auto [facility] Eosinophils (Bld) [#/Vol] 0.14 10*3/uL [facility] Eosinophils/100 WBC (Bld) 1.9 % [facility] Erythrocyte distribution width (RBC) [Ratio] 15.7 % High 11.5 - 15.0 % [facility] Hematocrit (Bld) [Volume fraction] 30.2 % Low 36.0 - 46.0 % [facility] Hemoglobin (Bld) [Mass/Vol] 9.2 g/dL Low 11.5 - 15.5 g/dL [facility] Immature granulocytes (Bld) [#/Vol] [facility] Immature granulocytes/100 WBC (Bld) 0.3 % [facility] Interpretation and review of laboratory results Abnormal [facility] Lymphocytes (Bld) [#/Vol] 2.27 10*3/uL [facility] Lymphocytes/100 WBC (Bld) 30.5 % [facility] MCH (RBC) [Entitic mass] 24.2 pg Low 26.0 - 34.0 pg [facility] MCHC (RBC) [Mass/Vol] 30.5 g/dL 30.5 - 36.0 g/dL [facility] MCV (RBC) [Entitic vol] 79.5 fL Low 80.0 - 100.0 fL [facility] Monocytes (Bld) [#/Vol] 0.53 10*3/uL [facility] Monocytes/100 WBC (Bld) 7.1 % [facility] Neutrophils (Bld) [#/Vol] 4.44 10*3/uL [facility] Neutrophils/100 WBC (Bld) 59.7 % [facility] Nucleated RBC (Bld) [#/Vol] [facility] Nucleated RBC/100 WBC (Bld) [Ratio] 0 % /100 WBC [facility] Platelet mean volume (Bld) [Entitic vol] 9 fL 9.0 - 12.7 fL [facility] Platelets (Bld) [#/Vol] 443 10*3/uL High [facility] RBC (Bld) [#/Vol] 3.8 10*6/uL Low 3.90 - 5.2 0 m/uL [facility] WBC (Bld) [#/Vol] 7.44 10*3/uL [facility] This is an appended report. These results have been appended to a previously verified report. [facility] IMMUNOGLOBULINS,IGG,IGA,IGMo n 10-02-2024 IgA [Mass/Vol] 324 mg/dL 70 - 400 mg/dL [facility] IgG [Mass/Vol] 2708 mg/dL High 700 - 1600 mg/dL [facility] IgM [Mass/Vol] 99 mg/dL 40 - 230 mg/dL [facility] Interpretation and review of laboratory results Abnormal [facility] LMW ANTI XA ASSAYOrdered By: Yoseph Urban on 10-02-2024 LMW Heparin Qn (PPP) 0.49 High [facility] Comment on above: Therapeutic Range: 0 .5 to 1.1 IU/mL ([facility] 1998: 122:799 to 807). LMW Heparin Qn (PPP)Ordered By: Yoseph Urban on 10-02-2024 Interpretation and review of laboratory results Abnormal [facility] Frozen Plasma Aliquo t [facility] PATHOLOGIST INTERPRETATION C BC/DIFFOrdered By: Jaden Sr on 10-02-2024 Technical Instructor Course Developer review Stan (Unsp spec) [Interp] No review performed. [facility] Pathologist Interpretation, CBCDIF The Pathologist Interpretation on this sample was cancelled because the hematology analyzer did not flag any parameters as requiring manual review. If there is a specific clinical concern for which you would like a pathologist to review the blood smear, please call Lab Client Services within 28 days. Account Credited [facility] CMP with eGFRon 10-01-2024 AGE 39 years Normal [facility] Comment on above: Performed By: #### 2 45017 ####[facility],[address] [place] [address] Albumin [Mass/Vol] 1.8 g/dL Low 3.4 - 5.0 [facility] Comment on above: Performed By: #### 2 34154 ####[facility],[address] [place] [address] Albumin/Globulin [Mass ratio] 0.4 {ratio} Low 0.9 - 1.6 [facility] Comment on above: Performed By: #### 2 80504 ####[facility],[address] [place] [address] 12713 ALK PHOS 114 U/L Normal 46 - 116 [facility] Comment on above: Performed By: #### 2 01853 ####[facility],[address] [place] [address] 78482 ALT [Catalytic activity/Vol] 79 U/L High 16 - 63 [facility] Comment on above: Performed By: #### 2 14786 ####[facility],[address] [place] [address]244 Anion gap [Moles/Vol] 10 mmol/L Normal 10 - 20 [facility] Comment on above: Performed By: #### 2 66213 ####[facility],[address] [place] [address] 99807 AST [Catalytic activity/Vol] 34 U/L Normal 13 - 39 [facility] Comment on above: Performed By: #### 2 71424 ####[facility],[address] [place] [address] 24764 B/C RATIO 21 ratio Normal 0 - 30 [facility] Comment on above: Performed By: #### 2 86784 ####[facility],[address] [place] [address] 65873 Bilirubin [Mass/Vol] 0.5 mg/dL Normal 0.2 - 1.0 [facility] Comment on above: Performed By: #### 2 17259 ####[facility],[address] [place] [address] 62925 Calcium [Mass/Vol] 7.8 mg/dL Low 8.5 - 10.1 [facility] Comment on above: Performed By: #### 2 36298 ####[facility],[address] [place] [address] 24495 Chloride [Moles/Vol] 105 mmol/L Normal 98 - 107 [facility] Comment on above: Performed By: #### 2 33949 ####[facility],[address] [place] [address]602 CMP with eGFR Normal [facility] Comment on above: Result Comment: COMP REHENSIVE METABOLIC PANEL Performed By: #### 2 44506 ####[facility],[address] [place] [address] 98094 CO2 [Moles/Vol] 27.9 mmol/L Normal 21.0 - 32.0 [facility] Comment on above: Performed By: #### 2 70155 ####[facility],[address] [place] [address] 07086 Creatinine [Mass/Vol] 0.71 mg/dL Normal 0.55 - 1.02 [facility] Comment on above: Performed By: #### 2 89350 ####[facility],[address] [place] [address] 50150 GFR/1.73 sq M.predicted among non-blacks MDRD (S/P/Bld) [Vol rate/Area] mL/min/{1.73_m2} Normal 60 - 999 [facility] Comment on above: Performed By: #### 2 67936 ####[facility],[address] [place] [address] 05971 Result Comment: ACCO RDING TO THE NATIONAL KIDNEY DISEASE EDUCATION PROGRAM(NKDE), A NORMAL eGFR IS A VALUE GREATER THAN OR EQUAL TO 60 ML/MIN/1.73 SQ METERS. CHRONIC KIDNEY DISEASE: <60mL/MIN/1.73 SQ METERS KIDNEY FAILURE: <15mL/MIN/1.73 SQ METERS THIS TEST SHOULD ONLY BE USED FOR PATIENTS 18 YEARS OF AGE AND OLDER. Globulin (S) [Mass/Vol] 5.1 g/dL High 1.5 - 3.8 [facility] Comment on above: Performed By: #### 2 02143 ####[facility],[address] [place] [address] 50712 Glucose [Mass/Vol] 170 mg/dL High 74 - 106 [facility] Comment on above: Performed By: #### 2 03561 ####[facility],[address] [place] [address] 71043 Potassium [Moles/Vol] 3.7 mmol/L Normal 3.5 - 5.1 [facility] Comment on above: Performed By: #### 2 37769 ####[facility],[address] [place] [address] 48387 Protein [Mass/Vol] 6.9 g/dL Normal 6.4 - 8.2 [facility] Comment on above: Performed By: #### 2 10192 ####[facility],[address] [place] [address] 60285 Sodium [Moles/Vol] 139 mmol/L Normal 136 - 145 [facility] Comment on above: Performed By: #### 2 68012 ####[facility],[address] [place] [address] 93534 Urea nitrogen [Mass/Vol] 15 mg/dL Normal 7 - 18 [facility] Comment on above: Performed By: #### 2 40800 ####[facility],[address] [place] [address] 02598 MAGNESIUMon 10-01-2024 Magnesium [Mass/Vol] 1.8 mg/dL Normal 1.8 - 2.4 [facility] Comment on above: Performed By: #### 2 54526 #### [facility],[address] [place] [address] 89724 PHOSPHORUSon 10-01-2024 Phosphate [Mass/Vol] 3.6 mg/dL Normal 2.6 - 4.7 [facility] Comment on above: Performed By: #### 2 91536 ####[facility],[address] [place], [place] [id number] VANCOMYCIN TROUGHon 10-02-19 25 VANCOMYCIN,TROUGH 10.8 ug/mL High 5.0 - 10.0 [facility] Comment on above: Performed By: #### 2 94128 ####[facility],[address] [place], [place] [id number] VANCOMYCIN TROUGHon 09-29-19 25 VANCOMYCIN,TROUGH 9.6 ug/mL Normal 5.0 - 10.0 [facility] Comment on above: Performed By: #### 2 49518 #### [facility],[address] [place] [address] CBC + DIFFon 09-27-2024 Baso # 0.03 x10EE3/UL Normal 0.00 - 0.10 [facility] Comment on above: Performed By: #### 2 44828 ####[facility],[address] [place] [address] Basophils/100 WBC (Bld) 0.5 % Normal 0.0 - 2.0 [facility] Comment on above: Performed By: #### 2 98704 ####[facility],[address] [place] [address] CBC + DIFF Normal [facility] Comment on above: Result Comment: CBC- COMPLETE BLOOD COUNT Performed By: #### 2 23539 ####[facility],[address] [place] [address] EO # 0.16 x10EE3/UL Normal 0.00 - 0.50 [facility] Comment on above: Performed By: #### 2 95737 ####[facility],[address] [place] [address] 88637 Eosinophils/100 WBC (Bld) 2.4 % Normal 0.0 - 7.0 [facility] Comment on above: Performed By: #### 2 47380 ####[facility],[address] [place] [address] Erythrocyte distribution width (RBC) [Ratio] 16.7 % High 12.0 - 15.6 [facility] Comment on above: Performed By: #### 2 35806 ####[place] [address] Hematocrit (Bld) [Volume fraction] 27.6 % Low 34.0 - 46.0 [facility] Comment on above: Performed By: #### 2 91863 ####[facility],[address] [place] [address] Hemoglobin (Bld) [Mass/Vol] 8.8 g/dL Low 12.0 - 16.0 [facility] Comment on above: Performed By: #### 2 55647 ####[facility],[address] [place] [address] Lymph # 1.44 x10EE3/UL Normal 0.80 - 2.80 [facility] Comment on above: Performed By: #### 2 51115 ####[facility],[address] [place] [address] Lymphocytes/100 WBC (Bld) 21.3 % Normal 20.0 - 45.0 [facility] Comment on above: Performed By: #### 2 87458 ####[facility],[address] [place] [address] MANUAL DIFF N/A Normal [facility] Comment on above: Performed By: #### 2 21151 ####[facility],[address] [place] [address] MCH (RBC) [Entitic mass] 25 pg Low 27 - 33 [facility] Comment on above: Performed By: #### 2 45553 ####[place] [address] MCHC 32 X10 3 Normal 32 - 36 [facility] Comment on above: Performed By: #### 2 57826 ####[facility],[address],[place] [address] MCV (RBC) [Entitic vol] 79 fL Low 80 - 99 [facility] Comment on above: Performed By: #### 2 72555 ####[facility],[address] [place] [address] Foster # 0.61 x10EE3/UL Normal 0.20 - 1.00 [facility] Comment on above: Performed By: #### 2 24867 ####[facility],[address] [place] [address] MONOS % 9.1 % Normal 0.0 - 10.0 [facility] Comment on above: Performed By: #### 2 01181 ####[place] [address] Morphology Stan (Bld) [Interp] N/A Normal [facility] Comment on above: Performed By: #### 2 80707 ####[place] [address] Neut # 4.51 x10EE3/UL Normal 1.50 - 7.10 [facility] Comment on above: Performed By: #### 2 90080 ####[place] [address] Neutrophils/100 WBC (Bld) 66.8 % Normal 46.0 - 76.0 [facility] Comment on above: Performed By: #### 2 46623 ####[place] [address] PLATELET 543 x10EE3/UL High 150 - 450 [facility] Comment on above: Performed By: #### 2 11201 ####[place] [address] Platelet mean volume (Bld) [Entitic vol] 7.9 fL Normal 6.6 - 10.5 [facility] Comment on above: Result Comment: AUTO MATED DIFFERENTIAL Performed By: #### 2 91288 ####[address] [address] RBC 3.51 x 10EE6/UL Low 4.10 - 5.30 [facility] Comment on above: Performed By: #### 2 33881 ####[facility],[address] [place] [address] 28967 WBC 6.8 x 10EE3/UL Normal 4.5 - 10.8 [facility] Comment on above: Performed By: #### 2 23079 ####[facility],[address] [place] [address] 94724 CMP with eGFRon 09-27-2024 AGE 39 years Normal [facility] Comment on above: Performed By: #### 2 32981 ####[facility],[address] [place] [address] 35328 Albumin [Mass/Vol] 1.8 g/dL Low 3.4 - 5.0 [facility] Comment on above: Performed By: #### 2 82864 ####[facility],[address] [place] [address] 99808 Albumin/Globulin [Mass ratio] 0.3 {ratio} Low 0.9 - 1.6 [facility] Comment on above: Performed By: #### 2 77673 ####[facility],[address] [place] [address] 97349 ALK PHOS 131 U/L High 46 - 116 [facility] Comment on above: Performed By: #### 2 89971 ####[facility],[address] [place] [address] 16622 ALT [Catalytic activity/Vol] 90 U/L High 16 - 63 [facility] Comment on above: Performed By: #### 2 88997 ####[facility],[address] [place] [address] 68340 Anion gap [Moles/Vol] 10 mmol/L Normal 10 - 20 [facility] Comment on above: Performed By: #### 2 20603 ####[facility],[address] [place] [address] 23767 AST [Catalytic activity/Vol] 40 U/L High 13 - 39 [facility] Comment on above: Performed By: #### 2 30248 ####[facility],[address] [place] [address] 37034 B/C RATIO 20 ratio Normal 0 - 30 [facility] Comment on above: Performed By: #### 2 32777 ####[facility],[address] [place] [address] 31923 Bilirubin [Mass/Vol] 0.5 mg/dL Normal 0.2 - 1.0 [facility] Comment on above: Performed By: #### 2 24726 ####[facility],[address] [place] [address] 01924 Calcium [Mass/Vol] 8.1 mg/dL Low 8.5 - 10.1 [facility] Comment on above: Performed By: #### 2 81971 ####[facility] [facility] [place] [address] 19736 Chloride [Moles/Vol] 102 mmol/L Normal 98 - 107 [facility] Comment on above: Performed By: #### 2 64472 ####[facility],[address] [place] [address] 78043 CMP with eGFR Normal [facility] Comment on above: Result Comment: COMP REHENSIVE METABOLIC PANEL Performed By: #### 2 96691 ####[facility],[address] [place] [address] 53917 CO2 [Moles/Vol] 26.0 mmol/L Normal 21.0 - 32.0 [facility] Comment on above: Performed By: #### 2 79868 ####[facility],[address] [place] [address] 98307 Creatinine [Mass/Vol] 0.71 mg/dL Normal 0.55 - 1.02 [facility] Comment on above: Performed By: #### 2 36239 ####[facility],[address] [place] [address] 65245 GFR/1.73 sq M.predicted among non-blacks MDRD (S/P/Bld) [Vol rate/Area] mL/min/{1.73_m2} Normal 60 - 999 [facility] Comment on above: Performed By: #### 2 30339 ####[facility],[address] [place] [address] 98202 Result Comment: ACCO RDING TO THE NATIONAL KIDNEY DISEASE EDUCATION PROGRAM(NKDE), A NORMAL eGFR IS A VALUE GREATER THAN OR EQUAL TO 60 ML/MIN/1.73 SQ METERS. CHRONIC KIDNEY DISEASE: <60mL/MIN/1.73 SQ METERS KIDNEY FAILURE: <15mL/MIN/1.73 SQ METERS THIS TEST SHOULD ONLY BE USED FOR PATIENTS 18 YEARS OF AGE AND OLDER. Globulin (S) [Mass/Vol] 5.3 g/dL High 1.5 - 3.8 [facility] Comment on above: Performed By: #### 2 06971 ####[facility],[address] [place] [address] 67895 Glucose [Mass/Vol] 82 mg/dL Normal 74 - 106 [facility] Comment on above: Performed By: #### 2 24038 ####[facility],[address] [place] [address] 86472 Potassium [Moles/Vol] 3.6 mmol/L Normal 3.5 - 5.1 [facility] Comment on above: Performed By: #### 2 08726 ####[facility],[address] [place] [address] 16378 Protein [Mass/Vol] 7.1 g/dL Normal 6.4 - 8.2 [facility] Comment on above: Performed By: #### 2 28386 ####[facility],[address] [place] [address] 16022 Sodium [Moles/Vol] 134 mmol/L Low 136 - 145 [facility] Comment on above: Performed By: #### 2 43437 ####[facility],[address] [place] [address] 42309 Urea nitrogen [Mass/Vol] 14 mg/dL Normal 7 - 18 [facility] Comment on above: Performed By: #### 2 75698 ####[facility],[address] [place] [address] 51383 MAGNESIUMon 09-27-2024 Magnesium [Mass/Vol] 1.9 mg/dL Normal 1.8 - 2.4 [facility] Comment on above: Performed By: #### 2 90814 #### [facility],[address] [place] [address] 77044 BMP with eGFRon 09-25-2024 AGE 39 years Normal [facility] Comment on above: Performed By: #### 2 18820 ####[facility],[address] [place] [address] 16630 Anion gap [Moles/Vol] 14 mmol/L Normal 10 - 20 [facility] Comment on above: Performed By: #### 2 52715 ####[facility],[address] [place] [address] 49116 BMP with eGFR Normal [facility] Comment on above: Result Comment: BASI C METABOLIC PANEL Performed By: #### 2 06599 ####[facility],[address] [place] [address] 51966 Calcium [Mass/Vol] 8.5 mg/dL Normal 8.5 - 10.1 [facility] Comment on above: Performed By: #### 2 59538 ####[facility],[address] [place] [address] 96666 Chloride [Moles/Vol] 101 mmol/L Normal 98 - 107 [facility] Comment on above: Performed By: #### 2 12213 ####[facility],[address] [place] [address] 20526 CO2 [Moles/Vol] 23.2 mmol/L Normal 21.0 - 32.0 [facility] Comment on above: Performed By: #### 2 21395 ####[facility],[address] [place] [address] 06072 Creatinine [Mass/Vol] 0.87 mg/dL Normal 0.55 - 1.02 [facility] Comment on above: Performed By: #### 2 44522 ####[facility],[address] [place] [address] 99925 GFR/1.73 sq M.predicted among non-blacks MDRD (S/P/Bld) [Vol rate/Area] mL/min/{1.73_m2} Normal 60 - 999 [facility] Comment on above: Performed By: #### 2 91868 ####[facility],[address] [place] [address] 75270 Result Comment: ACCO RDING TO THE NATIONAL KIDNEY DISEASE EDUCATION PROGRAM(NKDE), A NORMAL eGFR IS A VALUE GREATER THAN OR EQUAL TO 60 ML/MIN/1.73 SQ METERS. CHRONIC KIDNEY DISEASE: <60mL/MIN/1.73 SQ METERS KIDNEY FAILURE: <15mL/MIN/1.73 SQ METERS THIS TEST SHOULD ONLY BE USED FOR PATIENTS 18 YEARS OF AGE AND OLDER. Glucose [Mass/Vol] 89 mg/dL Normal 74 - 106 [facility] Comment on above: Performed By: #### 2 80306 ####[facility],[address] [place] [address] 73044 Potassium [Moles/Vol] 4.6 mmol/L Normal 3.5 - 5.1 [facility] Comment on above: Performed By: #### 2 88415 ####[facility],[address] [place] [address] 61154 Sodium [Moles/Vol] 134 mmol/L Low 136 - 145 [facility] Comment on above: Performed By: #### 2 04185 ####[facility],[address] [place] [address] 57645 Urea nitrogen [Mass/Vol] 11 mg/dL Normal 7 - 18 [facility] Comment on above: Performed By: #### 2 50188 ####[facility],[address] [place] [address] VANCOMYCIN TROUGHon 09-26-19 25 VANCOMYCIN,TROUGH 4.9 ug/mL Low 5.0 - 10.0 [facility] Comment on above: Performed By: #### 2 33970 #### [facility],[address] [place], [place] [address] VANCOMYCIN,TROUGH 5.0 ug/mL Normal 5.0 - 10.0 [facility] Comment on above: Performed By: #### 2 92229 #### [facility],[address] [place] [address] CBC + DIFFon 09-24-2024 Baso # 0.07 x10EE3/UL Normal 0.00 - 0.10 [facility] Comment on above: Performed By: #### 2 96453 ####[facility],[address] [place] [address] Basophils/100 WBC (Bld) 0.6 % Normal 0.0 - 2.0 [facility] Comment on above: Performed By: #### 2 82154 ####[facility],[address] [place] [address] CBC + DIFF Normal [facility] Comment on above: Result Comment: CBC- COMPLETE BLOOD COUNT Performed By: #### 2 58526 ####[facility],[address] [place] [address] EO # 0.24 x10EE3/UL Normal 0.00 - 0.50 [facility] Comment on above: Performed By: #### 2 68141 ####[place] [id number] Eosinophils/100 WBC (Bld) 1.9 % Normal 0.0 - 7.0 [facility] Comment on above: Performed By: #### 2 00264 ####[facility],[address] [place] [address] Erythrocyte distribution width (RBC) [Ratio] 17.1 % High 12.0 - 15.6 [facility] Comment on above: Performed By: #### 2 57269 ####[facility],[address] [place], [place] [address] Hematocrit (Bld) [Volume fraction] 26.8 % Low 34.0 - 46.0 [facility] Comment on above: Performed By: #### 2 89840 ####[facility],[address] [place] [address] Hemoglobin (Bld) [Mass/Vol] 8.6 g/dL Low 12.0 - 16.0 [facility] Comment on above: Performed By: #### 2 41240 ####[facility],[address] [place] [address] Lymph # 2.14 x10EE3/UL Normal 0.80 - 2.80 [facility] Comment on above: Performed By: #### 2 51323 ####[facility],[address] [place], [place] [address] Lymphocytes/100 WBC (Bld) 17.2 % Low 20.0 - 45.0 [facility] Comment on above: Performed By: #### 2 51110 ####[facility],[address] [place] [address] 74963 MANUAL DIFF N/A Normal [facility] Comment on above: Performed By: #### 2 06684 ####[facility],[address] [place], [place] [phone] MCH (RBC) [Entitic mass] 25 pg Low 27 - 33 [facility] Comment on above: Performed By: #### 2 86862 ####[facility],[address] [place], [place] [phone] MCHC 32 X10 3 Normal 32 - 36 [facility] Comment on above: Performed By: #### 2 81827 ####[facility],[address] [place] [address] 84005 MCV (RBC) [Entitic vol] 79 fL Low 80 - 99 [facility] Comment on above: Performed By: #### 2 56872 ####[facility],[address] [place] [address] 87680 Foster # 1.36 x10EE3/UL High 0.20 - 1.00 [facility] Comment on above: Performed By: #### 2 65671 ####[facility],[address] [place] [address] 83711 MONOS % 10.9 % High 0.0 - 10.0 [facility] Comment on above: Performed By: #### 2 08829 ####[facility],[address] [place] [address] 63245 Morphology Stan (Bld) [Interp] N/A Normal [facility] Comment on above: Performed By: #### 2 50910 ####[facility],[address] [place] [address] Neut # 8.65 x10EE3/UL High 1.50 - 7.10 [facility] Comment on above: Performed By: #### 2 61628 ####[facility],[address] [place] [address] 96641 Neutrophils/100 WBC (Bld) 69.4 % Normal 46.0 - 76.0 [facility] Comment on above: Performed By: #### 2 84660 ####[facility],[address] [place] [address] 92011 PLATELET 538 x10EE3/UL High 150 - 450 [facility] Comment on above: Performed By: #### 2 16490 ####[facility],[address] [place] [address] 41989 Platelet mean volume (Bld) [Entitic vol] 8.1 fL Normal 6.6 - 10.5 [facility] Comment on above: Result Comment: AUTO MATED DIFFERENTIAL Performed By: #### 2 38761 ####[facility],[address] [place] [address] 09188 RBC 3.39 x 10EE6/UL Low 4.10 - 5.30 [facility] Comment on above: Performed By: #### 2 88398 ####[facility],[address] [place] [address] 21181 WBC 12.5 x 10EE3/UL High 4.5 - 10.8 [facility] Comment on above: Performed By: #### 2 94959 ####[facility],[address] [place] [address] 35342 CMP with eGFRon 09-24-2024 AGE 39 years Normal [facility] Comment on above: Performed By: #### 2 50523 #### [facility],[address] [place] [address] 15327 Albumin [Mass/Vol] 1.7 g/dL Low 3.4 - 5.0 [facility] Comment on above: Performed By: #### 2 14552 #### [facility],[address] [place] [address] 52099 Albumin/Globulin [Mass ratio] 0.3 {ratio} Low 0.9 - 1.6 [facility] Comment on above: Performed By: #### 2 60533 #### [facility],[address] [place] [address] 95963 ALK PHOS 144 U/L High 46 - 116 [facility] Comment on above: Performed By: #### 2 78672 #### [facility],[address] [place] [address] 99993 ALT [Catalytic activity/Vol] 90 U/L High 16 - 63 [facility] Comment on above: Performed By: #### 2 94362 #### [facility],[address] [place] [address] 52603 Anion gap [Moles/Vol] 13 mmol/L Normal 10 - 20 [facility] Comment on above: Performed By: #### 2 33247 #### [facility],[address] [place] [address] 03485 AST [Catalytic activity/Vol] 40 U/L High 13 - 39 [facility] Comment on above: Performed By: #### 2 11846 #### [facility],[address] [place] [address] 88476 B/C RATIO 22 ratio Normal 0 - 30 [facility] Comment on above: Performed By: #### 2 82907 #### [facility],[address] [place] [address] 61596 Bilirubin [Mass/Vol] 0.5 mg/dL Normal 0.2 - 1.0 [facility] Comment on above: Performed By: #### 2 37149 #### [facility],[address] [place] [address] 89540 Calcium [Mass/Vol] 8.1 mg/dL Low 8.5 - 10.1 [facility] Comment on above: Performed By: #### 2 36103 #### [facility],[address] [place] [address] 44510 Chloride [Moles/Vol] 101 mmol/L Normal 98 - 107 [facility] Comment on above: Performed By: #### 2 26156 #### [facility],[address] [place] [address] 55977 CMP with eGFR Normal [facility] Comment on above: Result Comment: COMP REHENSIVE METABOLIC PANEL Performed By: #### 2 40056 #### [facility],[address] [place] [address] 08112 CO2 [Moles/Vol] 25.9 mmol/L Normal 21.0 - 32.0 [facility] Comment on above: Performed By: #### 2 98094 #### [facility],[address] [place] [address] 30375 Creatinine [Mass/Vol] 0.76 mg/dL Normal 0.55 - 1.02 [facility] Comment on above: Performed By: #### 2 02755 #### [facility],[address] [place] [address] 31376 GFR/1.73 sq M.predicted among non-blacks MDRD (S/P/Bld) [Vol rate/Area] mL/min/{1.73_m2} Normal 60 - 999 [facility] Comment on above: Performed By: #### 2 69265 #### [facility],[address] [place] [address] 31343 Result Comment: ACCO RDING TO THE NATIONAL KIDNEY DISEASE EDUCATION PROGRAM(NKDE), A NORMAL eGFR IS A VALUE GREATER THAN OR EQUAL TO 60 ML/MIN/1.73 SQ METERS. CHRONIC KIDNEY DISEASE: <60mL/MIN/1.73 SQ METERS KIDNEY FAILURE: <15mL/MIN/1.73 SQ METERS THIS TEST SHOULD ONLY BE USED FOR PATIENTS 18 YEARS OF AGE AND OLDER. Globulin (S) [Mass/Vol] 5.4 g/dL High 1.5 - 3.8 [facility] Comment on above: Performed By: #### 2 89658 #### [address] [address] Glucose [Mass/Vol] 88 mg/dL Normal 74 - 106 [facility] Comment on above: Performed By: #### 2 25150 #### [address] [address]64 Potassium [Moles/Vol] 3.7 mmol/L Normal 3.5 - 5.1 [facility] Comment on above: Performed By: #### 2 26941 #### [address] [address]203 Protein [Mass/Vol] 7.1 g/dL Normal 6.4 - 8.2 [facility] Comment on above: Performed By: #### 2 58144 #### [address] [address]288 Sodium [Moles/Vol] 136 mmol/L Normal 136 - 145 [facility] Comment on above: Performed By: #### 2 46042 #### [facility],[address] [place] [address] Urea nitrogen [Mass/Vol] 17 mg/dL Normal 7 - 18 [facility] Comment on above: Performed By: #### 2 45305 #### [facility],[address] [place] [address] MAGNESIUMon 09-24-2024 Magnesium [Mass/Vol] 1.9 mg/dL Normal 1.8 - 2.4 [facility] Comment on above: Performed By: #### 2 63890 #### [facility],[address] [place] [address] 43456 BCIDon 09-23-2024 Acinetobacter michael-baumanii complex Not detected Normal Not Detected [facility] Comment on above: Performed By: #### B ANITHA #### [place] [address] Bacteroides fragilis Not detected Normal Not Detected [facility] Comment on above: Performed By: #### B ANITHA #### [place] [address] BCID Comment See Comment Normal [facility] Comment on above: Result Comment: Anti microbial resistance can occur via multiple mechanisms. A Not Detected result for antimicrobial resistance gene(s) does not indicate antimicrobial susceptibility. Culture identification and susceptibility results to follow. If BCID panel was negative (Not Detected) for all targets, this does not exclude a blood stream infection. Our blood culture system detected growth. Culture identification and susceptibility testing (if appropriate) to follow. Performed By: #### B ANITHA #### [place] [address] Mary Ann albicans Not detected Normal Not Detected [facility] Comment on above: Performed By: #### B ANITHA #### [place] [address] Mary Ann auris Not detected Normal Not Detected [facility] Comment on above: Performed By: #### B ANITHA #### [place] [address] Mary Ann glabrata Not detected Normal Not Detected [facility] Comment on above: Performed By: #### B ANITHA #### [facility] [address] [place] [address] Mary Ann krusei Not detected Normal Not Detected [facility] Comment on above: Performed By: #### B ANITHA #### [facility] [address] [place] [address] Mary Ann parapsilosis Not detected Normal Not Detected [facility] Comment on above: Performed By: #### B ANITHA #### [facility] [address] [place] [address] Mary Ann tropicalis Not detected Normal Not Detected [facility] Comment on above: Performed By: #### B ANITHA #### [facility] [address] [place] [address] Cryptococcus neoformans-gattii Not detected Normal Not Detected [facility] Comment on above: Performed By: #### B ANITHA #### [facility] [address] [place] [address] CTX-M (ESBL) Not Applicable Normal Not Detected [facility] Comment on above: Performed By: #### B ANITHA #### [facility] [address] [place] [address] E. Coli Not detected Normal Not Detected [facility] Comment on above: Performed By: #### B ANITHA #### [facility] [address] [place] [address] Enterobacter cloacae Complex Not detected Normal Not Detected [facility] Comment on above: Performed By: #### B ANITHA #### [facility] [address] [place] [address] Enterobacterales Not detected Normal Not Detected [facility] Comment on above: Performed By: #### B ANITHA #### [facility] [address] [place] [address] Enterococcus faecalis Not detected Normal Not Detected [facility] Comment on above: Performed By: #### B ANITHA #### [facility] [address] [place] [address] Enterococcus faecium Not detected Normal Not Detected [facility] Comment on above: Performed By: #### B ANITHA #### [facility] [address] [place], [place] [address] Haemophilus influenzae Not detected Normal Not Detected [facility] Comment on above: Performed By: #### B ANITHA #### [facility] [address] [place] [address] 04395 IMP (Carbapenemase) Not Applicable Normal Not Detected [facility] Comment on above: Performed By: #### B ANITHA #### [facility] [address] [place] [address] 34360 Klebsiella aerogenes Not detected Normal Not Detected [facility] Comment on above: Performed By: #### B ANITHA #### [facility] [address] [place] [address] Klebsiella oxytoca Not detected Normal Not Detected [facility] Comment on above: Performed By: #### B ANITHA #### [place] [phone] Klebsiella pneumoniae group Not detected Normal Not Detected [facility] Comment on above: Performed By: #### B ANITHA #### [place] [address] KPC (Carbapenemase) Not Applicable Normal Not Detected [facility] Comment on above: Performed By: #### B ANTIHA #### [place] [address] Listeria monocytogenes Not detected Normal Not Detected [facility] Comment on above: Performed By: #### B ANITHA #### [place] [phone] MCR-1 (Colistin Resistance) Not Applicable Normal Not Detected [facility] Comment on above: Performed By: #### B ANITHA #### [place] [phone] Mec A/C Detected Abnormal Not Detected [facility] Comment on above: Performed By: #### B ANITHA #### [place] [phone] Mec A/C-MREJ (MRSA) Not Applicable Normal Not Detected [facility] Comment on above: Performed By: #### B ANITHA #### [address] [address] NDM (Carbapenemase) Not Applicable Normal Not Detected [facility] Comment on above: Performed By: #### B ANITHA #### [place] [address] Neisseria meningitidis (Encapsalated) Not detected Normal Not Detected [facility] Comment on above: Performed By: #### B ANITHA #### [place] [address] OXA-48 like (Carbapenemase) Not Applicable Normal Not Detected [facility] Comment on above: Performed By: #### B ANITHA #### [place] [address] Proteus Not detected Normal Not Detected [facility] Comment on above: Performed By: #### B ANITHA #### [place] [phone] Pseudomonas aeruginosa Not detected Normal Not Detected [facility] Comment on above: Performed By: #### B ANITHA #### [place] [address] S. agalactiae Org specific cx Ql (Vag fld) Not detected Normal Not Detected [facility] Comment on above: Performed By: #### B ANITHA #### [place] [address] Salmonella species Not detected Normal Not Detected [facility] Comment on above: Performed By: #### B ANITHA #### [place] [address] Serratia marcescens Not detected Normal Not Detected [facility] Comment on above: Performed By: #### B ANITHA #### [place] [address] Staphylococcus Detected Abnormal Not Detected [facility] Comment on above: Performed By: #### B ANITHA #### [place] [phone] Staphylococcus aureus Not detected Normal Not Detected [facility] Comment on above: Result Comment: If S taphylococcus aureus is Detected, an Infectious Disease physician consult is required on identification. Performed By: #### B ANITAH #### [place] [address] Staphylococcus epidermidis Detected Abnormal Not Detected [facility] Comment on above: Performed By: #### B ANITHA #### [place] [address] Staphylococcus lugdunensis Not detected Normal Not Detected [facility] Comment on above: Performed By: #### B ANITHA #### [place] [address] Stenotrophomonas maltophilia Not detected Normal Not Detected [facility] Comment on above: Performed By: #### B ANITHA #### [facility] [address] [place] [address] Streptococcus Not detected Normal Not Detected [facility] Comment on above: Performed By: #### B ANITHA #### [facility] [address] [place] [address] Streptococcus pneumoniae Not detected Normal Not Detected [facility] Comment on above: Performed By: #### B ANITHA #### [place] [address] Streptococcus pyogenes Not detected Normal Not Detected [facility] Comment on above: Performed By: #### B ANITHA #### [place] [address] Van A/B Not Applicable Normal Not Detected [facility] Comment on above: Performed By: #### B ANITHA #### [place] [address] VIM (Carbapenemase) Not Applicable Normal Not Detected [facility] Comment on above: Performed By: #### B ANITHA #### [place] [address] CULTURE CATHETER TIP [AULTMA N]on 09-23-2024 CULTURE CATHETER TIP [IRASEMA] CULTURE CATHETER TIP [IRASEMA] _CATHETER TIP CULTURE_ GO TO [facility] REPORTS AND ATTACHMENTS FOR SCANNED REPORT 09/28/24.1302.DNP.COMPLETE Normal [facility] Comment on above: Performed By: #### 2 91762 #### [facility],[address] [place] [address] CULTURE BLOOD [IRASEMA]on Microscopic examination of blood, culture CULTURE BLOOD [IRASEMA] _BLOOD CULTURE_ GO TO [facility] REPORTS AND ATTACHMENTS FOR SCANNED REPORT 09/28/24.1302.DNP.COMPLETE Normal [facility] Comment on above: Performed By: #### 2 84813 #### [facility],[address] [place], [place] [address] Microscopic examination of blood, culture CULTURE BLOOD [IRASEMA] _BLOOD CULTURE_ [facility] REPORT 09/28/24.1301.DNP.COMPLETE Normal [facility] Comment on above: Performed By: #### 2 48137 #### [facility],[address] [place] [address] 14972 URINALYSISon 09-21-2024 Bilirubin Ql (U) Negative Normal NORMAL: NEGATIVE [facility] Comment on above: Performed By: #### 2 67572 #### [facility],[address] [place], [place] [id number] Clarity (U) clear Normal NORMAL: CLEAR [facility] Comment on above: Performed By: #### 2 06911 #### [facility],[address] [place] [address] 68433 Color (U) yellow Normal NORMAL: YELLOW [facility] Comment on above: Performed By: #### 2 70048 #### [facility],[address] [place] [address] 47994 Glucose Ql (U) NORM Normal NORMAL: NORMAL [facility] Comment on above: Performed By: #### 2 24054 #### [facility],[address] [place] [address] 23963 Hemoglobin Ql (U) Negative Normal NORMAL: NEGATIVE [facility] Comment on above: Performed By: #### 2 13623 #### [facility],[address] [place] [address] 63139 Ketone Negative Normal NORMAL: NEGATIVE [facility] Comment on above: Performed By: #### 2 67006 #### [facility],[address] [place] [address] 57489 Leukocytes Negative Normal NORMAL: NEGATIVE [facility] Comment on above: Performed By: #### 2 87601 #### [facility],[address] [place] [address] Nitrite Ql (U) Negative Normal NORMAL: NEGATIVE [facility] Comment on above: Performed By: #### 2 95527 #### [facility],[address] [place] [address] pH (U) 6.5 [pH] Normal NORMAL: 5.0-8.0 [facility] Comment on above: Performed By: #### 2 68001 #### [facility],[address] [place] [address] Protein Ql (U) 15 Abnormal NORMAL: NEGATIVE [facility] Comment on above: Performed By: #### 2 38574 #### [facility],[address] [place] [address] Sp [place] 1.020 Normal NORMAL: 1.010-1.030 [facility] Comment on above: Performed By: #### 2 30649 #### [facility],[address] [place] [address] Specimen Type Clean catch Normal [facility] Comment on above: Performed By: #### 2 50396 #### [facility],[address] [place] [address] Urinalysis dipstick W Reflex Microscopic panel (U) NOT INDICATED Normal [facility] Comment on above: Performed By: #### 2 68509 #### [facility],[address] [place] [address] Urobilinog NORM Normal NORMAL: NORMAL [facility] Comment on above: Performed By: #### 2 54937 #### [facility],[address] [place] [address] URINE CULTURE [CCL]on 2024 Bacteria identified Cx Nom (U) URCUL See Results Below See Below CULTURE, URINE MIXED MICROBIOTA 10,000 -<50,000 CFU/ml Mixed microbiota No further workup. Mixed microbiota can be due to???urine???contamination with s SOURCE: Urine (Nonspecific) [facility] [address] [place] [address] Jaison Lema III, M.D. [id number] Normal [facility] Comment on above: Performed By: #### 2 76142 #### [facility],[address] [place], [place] [id number] CBC + DIFFon 09-20-2024 Baso # 0.06 x10EE3/UL Normal 0.00 - 0.10 [facility] Comment on above: Performed By: #### 2 16634 ####[facility],[address] [place] [address] 98527 Basophils/100 WBC (Bld) 0.4 % Normal 0.0 - 2.0 [facility] Comment on above: Performed By: #### 2 50334 ####[facility],[address] [place], [place] [phone] Basophils/100 WBC (Bld) 1.0 % Normal 0.0 - 2.0 [facility] Comment on above: Performed By: #### 2 46598 ####[facility],[address] [place], [place] [id number] CBC + DIFF Normal [facility] Comment on above: Result Comment: CBC- COMPLETE BLOOD COUNT Performed By: #### 2 15087 ####[address] [address] CELL COUNT 100 Normal [facility] Comment on above: Performed By: #### 2 56233 ####[facility],[address] [place] [address] 03436 EO 1.0 % Normal 0.0 - 7.0 [facility] Comment on above: Performed By: #### 2 20462 ####[facility],[address] [place] [address] 86395 EO # 0.22 x10EE3/UL Normal 0.00 - 0.50 [facility] Comment on above: Performed By: #### 2 99659 ####[facility],[address] [place] [address] 70087 Eosinophils/100 WBC (Bld) 1.4 % Normal 0.0 - 7.0 [facility] Comment on above: Performed By: #### 2 37125 ####[facility],[address] [place] [address] Erythrocyte distribution width (RBC) [Ratio] 18.0 % High 12.0 - 15.6 [facility] Comment on above: Performed By: #### 2 28779 ####[facility],[address] [place] [address] Hematocrit (Bld) [Volume fraction] 28.2 % Low 34.0 - 46.0 [facility] Comment on above: Performed By: #### 2 76680 ####[place] [address] Hemoglobin (Bld) [Mass/Vol] 9.1 g/dL Low 12.0 - 16.0 [facility] Comment on above: Performed By: #### 2 99647 ####[facility],[address] [place] [address] Lymph # 2.04 x10EE3/UL Normal 0.80 - 2.80 [facility] Comment on above: Performed By: #### 2 77056 ####[facility],[address] [place], [place] [phone] Lymphocytes/100 WBC (Bld) 12.6 % Low 20.0 - 45.0 [facility] Comment on above: Performed By: #### 2 01989 ####[facility],[address] [place] [address] 70770 Lymphocytes/100 WBC (Bld) 13 % Low 20 - 45 [facility] Comment on above: Performed By: #### 2 19428 ####[place] [id number] MANUAL DIFF SEE BELOW Normal [facility] Comment on above: Performed By: #### 2 44041 ####[facility],[address] [place] [address] MCH (RBC) [Entitic mass] 26 pg Low 27 - 33 [facility] Comment on above: Performed By: #### 2 54452 ####[facility],[address] [place] [address] MCHC 32 X10 3 Normal 32 - 36 [facility] Comment on above: Performed By: #### 2 02390 ####[facility],[address] [place] [address] MCV (RBC) [Entitic vol] 80 fL Normal 80 - 99 [facility] Comment on above: Performed By: #### 2 17860 ####[facility],[address] [place] [address] Foster # 1.34 x10EE3/UL High 0.20 - 1.00 [facility] Comment on above: Performed By: #### 2 10660 ####[facility],[address] [place] [address] MONOS 4 % Normal 0 - 10 [facility] Comment on above: Performed By: #### 2 13674 ####[facility],[address] [place] [address] MONOS % 8.3 % Normal 0.0 - 10.0 [facility] Comment on above: Performed By: #### 2 33605 ####[facility],[address] [place] [address] Morphology Stan (Bld) [Interp] REVIEWED Normal [facility] Comment on above: Performed By: #### 2 96376 ####[facility],[address] [place] [address] Neut # 12.46 x10EE3/UL High 1.50 - 7.10 [facility] Comment on above: Performed By: #### 2 26014 ####[facility],[address] [place] [address] 99706 Neutrophils/100 WBC (Bld) 77.3 % High 46.0 - 76.0 [facility] Comment on above: Performed By: #### 2 45198 ####[facility],[address] [place] [address] 82788 NRBC 1 /100 Normal [facility] Comment on above: Performed By: #### 2 25899 ####[facility],[address] [place] [address] 51021 PLATELET 422 x10EE3/UL Normal 150 - 450 [facility] Comment on above: Performed By: #### 2 30797 ####[facility],[address] [place] [address] 27061 Platelet mean volume (Bld) [Entitic vol] 8.8 fL Normal 6.6 - 10.5 [facility] Comment on above: Result Comment: AUTO MATED DIFFERENTIAL Performed By: #### 2 27733 ####[facility],[address] [place] [address] 65094 RBC 3.52 x 10EE6/UL Low 4.10 - 5.30 [facility] Comment on above: Performed By: #### 2 62018 ####[facility],[address] [place] [address] 42215 SEGS 81 % High 46 - 76 [facility] Comment on above: Performed By: #### 2 73497 ####[facility],[address] [place] [address] 55674 WBC 16.1 x 10EE3/UL High 4.5 - 10.8 [facility] Comment on above: Performed By: #### 2 05291 ####[facility],[address] [place] [address] 99827 CMP with eGFRon 09-20-2024 AGE 39 years Normal [facility] Comment on above: Performed By: #### 2 13040 #### [facility],[address] [place] [address] 69208 Albumin [Mass/Vol] 1.6 g/dL Low 3.4 - 5.0 [facility] Comment on above: Performed By: #### 2 90613 #### [facility],[address] [place] [address] 58701 Albumin/Globulin [Mass ratio] 0.3 {ratio} Low 0.9 - 1.6 [facility] Comment on above: Performed By: #### 2 65135 #### [facility],[address] [place] [address] 47331 ALK PHOS 136 U/L High 46 - 116 [facility] Comment on above: Performed By: #### 2 07522 #### [facility],[address] [place] [address] 05364 ALT [Catalytic activity/Vol] 80 U/L High 16 - 63 [facility] Comment on above: Performed By: #### 2 64457 #### [facility],[address] [place] [address] 81408 Anion gap [Moles/Vol] 10 mmol/L Normal 10 - 20 [facility] Comment on above: Performed By: #### 2 84152 #### [facility],[address] [place] [address] 86970 AST [Catalytic activity/Vol] 34 U/L Normal 13 - 39 [facility] Comment on above: Performed By: #### 2 90955 #### [facility],[address] [place] [address] 69074 B/C RATIO 15 ratio Normal 0 - 30 [facility] Comment on above: Performed By: #### 2 77452 #### [facility],[address] [place] [address] 22851 Bilirubin [Mass/Vol] 0.6 mg/dL Normal 0.2 - 1.0 [facility] Comment on above: Performed By: #### 2 55966 #### [facility],[address] [place] [address] 35994 Calcium [Mass/Vol] 8.1 mg/dL Low 8.5 - 10.1 [facility] Comment on above: Performed By: #### 2 11598 #### [facility],[address] [place] [address] 56036 Chloride [Moles/Vol] 101 mmol/L Normal 98 - 107 [facility] Comment on above: Performed By: #### 2 03914 #### [facility],[address] [place] [address] 03836 CMP with eGFR Normal [facility] Comment on above: Result Comment: COMP REHENSIVE METABOLIC PANEL Performed By: #### 2 88356 #### [facility],[address] [place] [address] 25823 CO2 [Moles/Vol] 29.0 mmol/L Normal 21.0 - 32.0 [facility] Comment on above: Performed By: #### 2 79069 #### [facility],[address] [place] [address] 16955 Creatinine [Mass/Vol] 0.80 mg/dL Normal 0.55 - 1.02 [facility] Comment on above: Performed By: #### 2 13665 #### [facility],[address] [place] [address] 86355 GFR/1.73 sq M.predicted among non-blacks MDRD (S/P/Bld) [Vol rate/Area] mL/min/{1.73_m2} Normal 60 - 999 [facility] Comment on above: Performed By: #### 2 32486 #### [facility],[address] [place] [address] 78209 Result Comment: ACCO RDING TO THE NATIONAL KIDNEY DISEASE EDUCATION PROGRAM(NKDE), A NORMAL eGFR IS A VALUE GREATER THAN OR EQUAL TO 60 ML/MIN/1.73 SQ METERS. CHRONIC KIDNEY DISEASE: <60mL/MIN/1.73 SQ METERS KIDNEY FAILURE: <15mL/MIN/1.73 SQ METERS THIS TEST SHOULD ONLY BE USED FOR PATIENTS 18 YEARS OF AGE AND OLDER. Globulin (S) [Mass/Vol] 5.3 g/dL High 1.5 - 3.8 [facility] Comment on above: Performed By: #### 2 20077 #### [facility],[address] [place] [address] 42216 Glucose [Mass/Vol] 98 mg/dL Normal 74 - 106 [facility] Comment on above: Performed By: #### 2 89071 #### [facility],[address] [place] [address] 12942 Potassium [Moles/Vol] 4.2 mmol/L Normal 3.5 - 5.1 [facility] Comment on above: Performed By: #### 2 69278 #### [facility],[address] [place] [address] 79653 Protein [Mass/Vol] 6.9 g/dL Normal 6.4 - 8.2 [facility] Comment on above: Performed By: #### 2 52614 #### [facility],[address] [place] [address] 25785 Sodium [Moles/Vol] 136 mmol/L Normal 136 - 145 [facility] Comment on above: Performed By: #### 2 00407 #### [facility],[address] [place] [address] 92310 Urea nitrogen [Mass/Vol] 12 mg/dL Normal 7 - 18 [facility] Comment on above: Performed By: #### 2 86273 #### [facility],[address] [place] [address] 19022 MAGNESIUMon 09-20-2024 Magnesium [Mass/Vol] 1.7 mg/dL Low 1.8 - 2.4 [facility] Comment on above: Performed By: #### 2 89960 ####[facility],[address] [place] [address] 86613 BCIDon 09-18-2024 Acinetobacter michael-baumanii complex Not detected Normal Not Detected [facility] Comment on above: Order Comment: aer Performed By: #### B ANITHA #### [place] [address] Bacteroides fragilis Not detected Normal Not Detected [facility] Comment on above: Order Comment: aer Performed By: #### B ANITHA #### [place] [address] BCID Comment See Comment Normal [facility] Comment on above: Order Comment: aer Result Comment: Anti microbial resistance can occur via multiple mechanisms. A Not Detected result for antimicrobial resistance gene(s) does not indicate antimicrobial susceptibility. Culture identification and susceptibility results to follow. If BCID panel was negative (Not Detected) for all targets, this does not exclude a blood stream infection. Our blood culture system detected growth. Culture identification and susceptibility testing (if appropriate) to follow. Performed By: #### B ANITHA #### [place] [address] Mary Ann albicans Not detected Normal Not Detected [facility] Comment on above: Order Comment: aer Performed By: #### B ANITHA #### [place] [address] [place] auris Not detected Normal Not Detected [facility] Comment on above: Order Comment: aer Performed By: #### B ANITHA #### [place] [address] [place] glabrata Not detected Normal Not Detected [facility] Comment on above: Order Comment: aer Performed By: #### B ANITHA #### [place] [address] [place] krusei Not detected Normal Not Detected [facility] Comment on above: Order Comment: aer Performed By: #### B ANITHA #### [place] [address] [place] parapsilosis Not detected Normal Not Detected [facility] Comment on above: Order Comment: aer Performed By: #### B ANITHA #### [facility] [address] [place] [address] Mary [place] tropicalis Not detected Normal Not Detected [facility] Comment on above: Order Comment: aer Performed By: #### B ANITHA #### [facility] [address] [place] [address] Cryptococcus neoformans-gattii Not detected Normal Not Detected [facility] Comment on above: Order Comment: aer Performed By: #### B ANITHA #### [place] [address] CTX-M (ESBL) Not Applicable Normal Not Detected [facility] Comment on above: Order Comment: aer Performed By: #### B ANITHA #### [place] [address] E. Coli Not detected Normal Not Detected [facility] Comment on above: Order Comment: aer Performed By: #### B ANITHA #### [place] [address] Enterobacter cloacae Complex Not detected Normal Not Detected [facility] Comment on above: Order Comment: aer Performed By: #### B ANITHA #### [place] [address] Enterobacterales Not detected Normal Not Detected [facility] Comment on above: Order Comment: aer Performed By: #### B ANITHA #### [facility] [address] [place] [address] Enterococcus faecalis Not detected Normal Not Detected [facility] Comment on above: Order Comment: aer Performed By: #### B ANITHA #### [place] [address] Enterococcus faecium Not detected Normal Not Detected [facility] Comment on above: Order Comment: aer Performed By: #### B ANITHA #### [address] [address] Haemophilus influenzae Not detected Normal Not Detected [facility] Comment on above: Order Comment: aer Performed By: #### B ANITHA #### [place] [address] IMP (Carbapenemase) Not Applicable Normal Not Detected [facility] Comment on above: Order Comment: aer Performed By: #### B ANITHA #### [place] [address] Klebsiella aerogenes Not detected Normal Not Detected [facility] Comment on above: Order Comment: aer Performed By: #### B ANITHA #### [place] [address] Klebsiella oxytoca Not detected Normal Not Detected [facility] Comment on above: Order Comment: aer Performed By: #### B ANITHA #### [place] [address] Klebsiella pneumoniae group Not detected Normal Not Detected [facility] Comment on above: Order Comment: aer Performed By: #### B ANITHA #### [place] [address] KPC (Carbapenemase) Not Applicable Normal Not Detected [facility] Comment on above: Order Comment: aer Performed By: #### B ANITHA #### [place] [address] Listeria monocytogenes Not detected Normal Not Detected [facility] Comment on above: Order Comment: aer Performed By: #### B ANITHA #### [place] [address] MCR-1 (Colistin Resistance) Not Applicable Normal Not Detected [facility] Comment on above: Order Comment: aer Performed By: #### B ANITHA #### [place] [address] Mec A/C Detected Abnormal Not Detected [facility] Comment on above: Order Comment: aer Performed By: #### B ANITHA #### [place] [address] Mec A/C-MREJ (MRSA) Not Applicable Normal Not Detected [facility] Comment on above: Order Comment: aer Performed By: #### B ANITHA #### [place] [address] NDM (Carbapenemase) Not Applicable Normal Not Detected [facility] Comment on above: Order Comment: aer Performed By: #### B ANITHA #### [place] [address] Neisseria meningitidis (Encapsalated) Not detected Normal Not Detected [facility] Comment on above: Order Comment: aer Performed By: #### B ANITHA #### [place] [address] OXA-48 like (Carbapenemase) Not Applicable Normal Not Detected [facility] Comment on above: Order Comment: aer Performed By: #### B ANITHA #### [place] [address] Proteus Not detected Normal Not Detected [facility] Comment on above: Order Comment: aer Performed By: #### B ANITHA #### [place] [address] Pseudomonas aeruginosa Not detected Normal Not Detected [facility] Comment on above: Order Comment: aer Performed By: #### B ANITHA #### [place] [address] S. agalactiae Org specific cx Ql (Vag fld) Not detected Normal Not Detected [facility] Comment on above: Order Comment: aer Performed By: #### B ANITHA #### [place] [address] Salmonella species Not detected Normal Not Detected [facility] Comment on above: Order Comment: aer Performed By: #### B ANITHA #### [place] [address] [place] [address] 39319 Serratia marcescens Not detected Normal Not Detected [facility] Comment on above: Order Comment: aer Performed By: #### B ANITHA #### [facility] [address] [place] [address] 57151 Staphylococcus Detected Abnormal Not Detected [facility] Comment on above: Order Comment: aer Performed By: #### B ANITHA #### [facility] [address] [place] [address] 76257 Staphylococcus aureus Not detected Normal Not Detected [facility] Comment on above: Order Comment: aer Result Comment: If S taphylococcus aureus is Detected, an Infectious Disease physician consult is required on identification. Performed By: #### B ANITHA #### [place] [address] Staphylococcus epidermidis Detected Abnormal Not Detected [facility] Comment on above: Order Comment: aer Performed By: #### B ANITHA #### [address] [address] Staphylococcus lugdunensis Not detected Normal Not Detected [facility] Comment on above: Order Comment: aer Performed By: #### B ANITHA #### [address] [address] Stenotrophomonas maltophilia Not detected Normal Not Detected [facility] Comment on above: Order Comment: aer Performed By: #### B ANITHA #### [facility] [address] [place] [address] 84579 Streptococcus Not detected Normal Not Detected [facility] Comment on above: Order Comment: aer Performed By: #### B ANITHA #### [address] [address] Streptococcus pneumoniae Not detected Normal Not Detected [facility] Comment on above: Order Comment: aer Performed By: #### B ANITHA #### [place] [id number] Streptococcus pyogenes Not detected Normal Not Detected [facility] Comment on above: Order Comment: aer Performed By: #### B ANITHA #### [place] [address] Van A/B Not Applicable Normal Not Detected [facility] Comment on above: Order Comment: aer Performed By: #### B ANITHA #### [place] [address] VIM (Carbapenemase) Not Applicable Normal Not Detected [facility] Comment on above: Order Comment: aer Performed By: #### B ANITHA #### [place] [address] C-REACTIVE PROTEINon 025 CRP 6.50 mg/dl High 0.00 - 0.90 [facility] Comment on above: Performed By: #### 2 38466 #### [facility],[address] [place] [address] CBC + DIFFon 09-17-2024 Baso # 0.02 x10EE3/UL Normal 0.00 - 0.10 [facility] Comment on above: Performed By: #### 2 97981 ####[facility],[address] [place] [address] Basophils/100 WBC (Bld) 0.2 % Normal 0.0 - 2.0 [facility] Comment on above: Performed By: #### 2 73187 ####[facility],[address] [place] [address] CBC + DIFF Normal [facility] Comment on above: Result Comment: CBC- COMPLETE BLOOD COUNT Performed By: #### 2 82068 ####[place] [address] EO # 0.05 x10EE3/UL Normal 0.00 - 0.50 [facility] Comment on above: Performed By: #### 2 21544 ####[facility],[address] [place] [address] Eosinophils/100 WBC (Bld) 0.5 % Normal 0.0 - 7.0 [facility] Comment on above: Performed By: #### 2 11799 ####[facility],[address] [place] [address] Erythrocyte distribution width (RBC) [Ratio] 17.2 % High 12.0 - 15.6 [facility] Comment on above: Performed By: #### 2 30974 ####[facility],[address] [place] [address] Hematocrit (Bld) [Volume fraction] 27.0 % Low 34.0 - 46.0 [facility] Comment on above: Performed By: #### 2 77382 ####[facility],[address] [place] [address] Hemoglobin (Bld) [Mass/Vol] 9.1 g/dL Low 12.0 - 16.0 [facility] Comment on above: Performed By: #### 2 96618 ####[facility],[address] [place] [address] Lymph # 1.13 x10EE3/UL Normal 0.80 - 2.80 [facility] Comment on above: Performed By: #### 2 58377 ####[facility],[address] [place], [place] [address] Lymphocytes/100 WBC (Bld) 10.8 % Low 20.0 - 45.0 [facility] Comment on above: Performed By: #### 2 32439 ####[facility],[address] [place], [place] [id number] MANUAL DIFF N/A Normal [facility] Comment on above: Performed By: #### 2 64395 ####[facility],[address] [place], [place] [id number] MCH (RBC) [Entitic mass] 27 pg Normal 27 - 33 [facility] Comment on above: Performed By: #### 2 94791 ####[facility],[address] [place] [address] MCHC 34 X10 3 Normal 32 - 36 [facility] Comment on above: Performed By: #### 2 71953 ####[facility],[address] [place], [place] [id number] MCV (RBC) [Entitic vol] 80 fL Normal 80 - 99 [facility] Comment on above: Performed By: #### 2 67349 ####[facility],[address] [place] [address] Foster # 0.95 x10EE3/UL Normal 0.20 - 1.00 [facility] Comment on above: Performed By: #### 2 35071 ####[facility],[address] [place] [address] MONOS % 9.1 % Normal 0.0 - 10.0 [facility] Comment on above: Performed By: #### 2 19448 ####[facility],[address] [place], [place] [id number] Morphology Stan (Bld) [Interp] N/A Normal [facility] Comment on above: Performed By: #### 2 23879 ####[facility],[address] [place] [address] Neut # 8.26 x10EE3/UL High 1.50 - 7.10 [facility] Comment on above: Performed By: #### 2 78865 ####[facility],[address] [place] [address] Neutrophils/100 WBC (Bld) 79.4 % High 46.0 - 76.0 [facility] Comment on above: Performed By: #### 2 51358 ####[facility],[address] [place] [address] PLATELET 225 x10EE3/UL Normal 150 - 450 [facility] Comment on above: Performed By: #### 2 81891 ####[facility],[address] [place] [address]29 Platelet mean volume (Bld) [Entitic vol] 9.1 fL Normal 6.6 - 10.5 [facility] Comment on above: Result Comment: AUTO MATED DIFFERENTIAL Performed By: #### 2 16211 ####[facility],[address] [place] [address] 61895 RBC 3.39 x 10EE6/UL Low 4.10 - 5.30 [facility] Comment on above: Performed By: #### 2 55453 ####[facility],[address] [place] [address] 61706 WBC 10.4 x 10EE3/UL Normal 4.5 - 10.8 [facility] Comment on above: Performed By: #### 2 76041 ####[facility],[address] [place] [address] CHEST 1 VIEWon 09-17-2024 CHEST 1 VIEW [place] [address] Patient: DALY EVANS Phone#: : 1985 Age: 39 Gender: F Pt. Type: ER Account: [id number] Location: [facility] Ordering: DONTE MEZA Exam Date: 09/17/2024/6:23 Family Phys: MAGGIE PUTNAM Charge Code: 034648 Physician: Teller Order #: [id number] Dose#: PROCEDURE: X-RAY CHEST 1 VIEW COMPARISON: None. INDICATIONS: Shortness of breath. FINDINGS: LUNGS: Normal. No significant pulmonary parenchymal abnormalities. VASCULATURE: Normal. Unremarkable pulmonary vasculature. CARDIAC: Normal. No cardiac silhouette abnormality or cardiomegaly. MEDIASTINUM: Normal. No visible mass or adenopathy. PLEURA: Normal. No effusion or pleural thickening. BONES: Normal. No fracture or visible bony lesion. OTHER: Negative. CONCLUSION: No acute disease. Dictated by: Seda Berry MD on 09/17/2024 at 10:53 Approved by: Seda Berry MD on 09/17/2024 at 10:53 Normal [facility] CMP with eGFRon 09-17-2024 AGE 39 years Normal [facility] Comment on above: Performed By: #### 2 86665 #### [facility],[address] [place] [address]58 Albumin [Mass/Vol] 1.9 g/dL Low 3.4 - 5.0 [facility] Comment on above: Performed By: #### 2 22942 #### [facility],[address] [place] [address]85 Albumin/Globulin [Mass ratio] 0.4 {ratio} Low 0.9 - 1.6 [facility] Comment on above: Performed By: #### 2 48059 #### [facility],[address] [place] [address] 97245 ALK PHOS 82 U/L Normal 46 - 116 [facility] Comment on above: Performed By: #### 2 75162 #### [facility],[address] [place] [address] 46501 ALT [Catalytic activity/Vol] 68 U/L High 16 - 63 [facility] Comment on above: Performed By: #### 2 82418 #### [facility],[address] [place] [address] 16958 Anion gap [Moles/Vol] 11 mmol/L Normal 10 - 20 [facility] Comment on above: Performed By: #### 2 70437 #### [facility],[address] [place] [address] 84630 AST [Catalytic activity/Vol] 48 U/L High 13 - 39 [facility] Comment on above: Performed By: #### 2 63789 #### [facility],[address] [place] [address] 63261 B/C RATIO 22 ratio Normal 0 - 30 [facility] Comment on above: Performed By: #### 2 17086 #### [facility],[address] [place] [address] 70045 Bilirubin [Mass/Vol] 0.4 mg/dL Normal 0.2 - 1.0 [facility] Comment on above: Performed By: #### 2 01598 #### [facility],[address] [place] [address] 34946 Calcium [Mass/Vol] 8.1 mg/dL Low 8.5 - 10.1 [facility] Comment on above: Performed By: #### 2 02833 #### [facility],[address] [place], [place] [id number] Chloride [Moles/Vol] 101 mmol/L Normal 98 - 107 [facility] Comment on above: Performed By: #### 2 52467 #### [facility],[address] [place] [address] CMP with eGFR Normal [facility] Comment on above: Result Comment: COMP REHENSIVE METABOLIC PANEL Performed By: #### 2 19729 #### [facility],[address] [place] [address] 76143 CO2 [Moles/Vol] 27.6 mmol/L Normal 21.0 - 32.0 [facility] Comment on above: Performed By: #### 2 21220 #### [facility],[address] [place] [address] 25291 Creatinine [Mass/Vol] 0.90 mg/dL Normal 0.55 - 1.02 [facility] Comment on above: Performed By: #### 2 22643 #### [facility],[address] [place] [address] 58976 GFR/1.73 sq M.predicted among non-blacks MDRD (S/P/Bld) [Vol rate/Area] mL/min/{1.73_m2} Normal 60 - 999 [facility] Comment on above: Performed By: #### 2 20156 #### [facility],[address],[place] [address] Result Comment: ACCO RDING TO THE NATIONAL KIDNEY DISEASE EDUCATION PROGRAM(NKDE), A NORMAL eGFR IS A VALUE GREATER THAN OR EQUAL TO 60 ML/MIN/1.73 SQ METERS. CHRONIC KIDNEY DISEASE: <60mL/MIN/1.73 SQ METERS KIDNEY FAILURE: <15mL/MIN/1.73 SQ METERS THIS TEST SHOULD ONLY BE USED FOR PATIENTS 18 YEARS OF AGE AND OLDER. Globulin (S) [Mass/Vol] 5.2 g/dL High 1.5 - 3.8 [facility] Comment on above: Performed By: #### 2 72216 #### [facility],[address] [place] [address] 12072 Glucose [Mass/Vol] 139 mg/dL High 74 - 106 [facility] Comment on above: Performed By: #### 2 54032 #### [facility],[address] [place] [address] 15132 Potassium [Moles/Vol] 3.2 mmol/L Low 3.5 - 5.1 [facility] Comment on above: Performed By: #### 2 11081 #### [facility],[address] [place] [address] 00195 Protein [Mass/Vol] 7.1 g/dL Normal 6.4 - 8.2 [facility] Comment on above: Performed By: #### 2 97008 #### [facility],[address] [place] [address] 40594 Sodium [Moles/Vol] 136 mmol/L Normal 136 - 145 [facility] Comment on above: Performed By: #### 2 16551 #### [facility],[address] [place] [address] 22839 Urea nitrogen [Mass/Vol] 20 mg/dL High 7 - 18 [facility] Comment on above: Performed By: #### 2 20103 #### [facility],[address] [place] [address] 52909 CORONAVIRUS (SARS) ANTIGEN T ESTon 09-17-2024 EXTERNAL QC DONE? YES Normal [facility] Comment on above: Performed By: #### 2 02368 #### [facility],[address] [place] [address] 31002 INTERNAL CONTROL PASS Normal [facility] Comment on above: Performed By: #### 2 49207 #### [facility],[address] [facility] [address] SARS ANTIGEN Negative Normal NORMAL: NEGATIVE [facility] Comment on above: Performed By: #### 2 60666 #### [facility],[address] [place] [address],[facility] [address] SEND TO IC? NO Normal [facility] Comment on above: Result Comment: SARS -CoV-2 THIS TEST IS BEING USED UNDER THE FDA EUA PROCEDURE. THIS ASSAY HAS BEEN VALIDATED AT [facility] FOR USE WITH NASAL AND NASOPHARYNGEAL SWAB SPECIMENS. INTERPRETIVE DATA TEST RESULTS SHOULD ALWAYS BE CONSIDERED IN THE CONTEXT OF CLINICAL OBSERVATIONS AND EPIDEMIOLOGICAL DATA IN MAKING FINAL DIAGNOSIS AND PATIENT MANAGEMENT DECISIONS. PATIENT MANAGEMENT SHOULD FOLLOW CURRENT CDC GUIDELINES. THE VINNY SARS ANTIGEN BARON DOES NOT DIFFERENTIATE BETWEEN SARS-CoV & SARS-CoV-2. A POSITIVE TEST RESULT INDICATES THE PRESENCE OF SARS-CoV-2 NUCLEOCAPSID PROTEIN ANTIGEN, AND THE PATIENT IS INFECTED WITH THE VIRUS AND PRESUMED TO BE CONTAGIOUS. A NEGATIVE TEST RESULT FOR THIS TEST MEANS THAT SARS-CoV-2 NUCLEOCAPSID PROTEIN ANTIGEN WAS NOT PRESENT IN THE SPECIMEN ABOVE THE LIMIT OF DETECTION. HOWEVER, A NEGATIVE RESULT DOES NOT RULE OUT COVID-19 AND SHOULD NOT BE USED THE SOLE BASIS FOR TREATMENT OR PATIENT MANAGEMENT DECISIONS. A NEGATIVE RESULT DOES NOT EXCLUDE THE POSSIBILITY OF COVID-19. NEGATIVE RESULTS, FROM PATIENTS WITH SYMPTOM ONSET BEYOND FIVE DAYS, SHOULD BE TREATED PRESUMPTIVE AND CONFIRMATION WITH A MOLECULAR ASSAY, IF NECESSARY, FOR PATIENT MANAGEMENT, MAY BE PERFORMED. WHEN DIAGNOSTIC TESTING IS NEGATIVE, THE POSSIBLILTY OF A FALSE NEGATIVE RESULT SHOULD BE CONSIDERED IN THE CONTEXT OF A PATIENT'S RECENT EXPOSURES AND THE PRESENCE OF CLINICAL SIGNS AND SYMPTOMS CONSISTENT WITH COVID-19. THE POSSIBILITY OF A FALSE NEGATIVE RESULT SHOULD ESPECIALLY BE CONSIDERED IF THE PATIENT'S RECENT EXPOSURES OR CLINICAL PRESENTATION INDICATE THAT COVID-19 IS LIKELY, AND DIAGNOSTIC TESTS FOR OTHER CAUSES OF ILLNESS (e.g., OTHER RESPIRATORY ILLNESS) ARE NEGATIVE. IF COVID-19 IS STILL SUSPECTED BASED ON EXPOSURE HISTORY TOGETHER WITH OTHER CLINICAL FINDINGS, RE-TESTING SHOULD BE CONSIDERED BY HEALTHCARE PROVIDERS IN CONSULTATION WITH PUBLIC HEALTH AUTHORITIES. Performed By: #### 2 06581 #### [facility],[address] [place], [place] [id number] CT ABDOMEN/PELVIS Won 2024 CT ABDOMEN/PELVIS [address] [address] Patient: DALY EVANS Phone#: : 1985 Age: 39 Gender: F Pt. Type: ER Account: [id number] Location: 052 Ordering: DONTE MEZA Exam Date: 09/17/2024/5:25 Family Phys: MAGGIE PUTNAM Charge Code: 624120 Physician: Teller Order #: [id number] Dose#: 28.4 PROCEDURE: CT ABDOMEN/PELVIS WITH CONTRAST COMPARISON: None. INDICATIONS: Abdominal apin. TECHNIQUE: After obtaining the patient's consent, CT images were created with non-ionic intravenous contrast material. All CT scans at this facility use dose modulation, iterative reconstruction, and/or weight based dosing when appropriate to reduce radiation dose to as low as reasonably achievable. IV CONTRAST: Omnipaque 350,80ml TOTAL DOSE: 28.4 CTDIvol(mGy) FINDINGS: LIVER: Normal. No enlargement, atrophy, abnormal density, or significant focal lesion. BILIARY: Gallbladder is not visualized. PANCREAS: Normal. No lesion, fluid collection, ductal dilatation, or atrophy. SPLEEN: Normal. No enlargement or focal lesion. KIDNEYS: Normal. No mass, obstruction, or calcification. ADRENALS: Normal. No mass or enlargement. AORTA/VASCULAR: Normal. No aneurysm or dissection. RETROPERITONEUM: Normal. No mass or adenopathy. BOWEL/MESENTERY: There is diffuse mucosal thickening and pericolonic fat stranding consistent with colitis. Small amount of free fluid is present in the pelvis. ABDOMINAL WALL: Left-sided ostomy is present. URINARY BLADDER: Normal. No visible focal wall thickening, lesion, or calculus. PELVIC NODES: Normal. No adenopathy. PELVIC ORGANS: Normal. No visible mass. Pelvic organs appropriate for patient age. BONES: Normal. No bony lesion or fracture. LUNG BASES: Normal. No visible pulmonary or pleural disease. OTHER: Negative. Continued Report - Page 2 of 2 Patient: DALY EVANS Phone#: : 1985 Age: 39 Gender: F Pt. Type: ER Account: [id number] Location: 052 Ordering: DONTE MEZA Exam Date: 09/17/2024/5:25 Family Phys: MAGGIE PUTNAM Charge Code: [id number] Physician: Teller Order #: [id number] Dose#: 28.4 CONCLUSION: 1. Findings consistent with colitis. 2. Left-sided ostomy is present. Dictated by: Seda Berry MD on 09/17/2024 at 9:27 Approved by: Seda Berry MD on 09/17/2024 at 9:33 Normal [facility] CULTURE BLOOD [[place]]on Microscopic examination of blood, culture CULTURE BLOOD [[place]] _BLO[facility] CULTURE_ [facility] AND ATT[facility] FOR SCANNED REPORT 09/24/24.1016.DNP.COMPLETE Normal [facility] Comment on above: Performed By: #### 2 75046 #### [facility],[address] [place] [address] Microscopic examination of blood, culture CULTURE BLOOD [[place]] _BLOOD CULTURE_ GO TO [facility] REPORTS AND ATTACHMENTS FOR SCANNED REPORT 09/21/24.1002.DNP.COMPLETE Normal [facility] Comment on above: Performed By: #### 2 32739 ####[facility],[address] [place] [address] CVFLURVon 09-17-2024 FLU A PCR Negative Normal Negative [facility] Comment on above: Result Comment: Note s 10173 Performed By: #### C VFLURV #### [facility] [address] [place] [address] FLU B PCR Negative Normal Negative [facility] Comment on above: Result Comment: Note s [address]09 Performed By: #### C VFLURV #### [facility] [address] [place] [address] 36346 RSV PCR Negative Normal Negative [facility] Comment on above: Result Comment: [place] s [id number] Performed By: #### C VFLURV #### [place] [address] [address] [place] [address] SARS-CoV-2 (COVID-19) RNA LAUREANO+probe Ql (Unsp spec) Negative Normal Negative [facility] Comment on above: Result Comment: Note s [address] This test has been authorized by FDA under an EUA for use by authorized laboratories and has not been FDA cleared or approved. Results from the Xpert Xpress SARS-CoV-2/Flu/RSV or Xpert Xpress SARS-CoV-2 only test should be correlated with the clinical history, epidemiological data, and other data available to the clinician evaluating the patient. Performance of the Xpert Xpress SARS-CoV-2/Flu/RSV or Xpert Xpress SARS-CoV-2 only test has only been established in nasopharyngeal swab specimens. Erroneous test results might occur from improper specimen collection; failure to follow the recommended sample collection, handling, and storage procedures; technical error; or sample mix-up.False negative results may occur if virus is present at levels below the analytical limit of detection. Viral nucleic acid may persist in vivo, independent of virus viability. Detection of analyte target(s) does not imply that the corresponding virus(es) are infectious or are the causative agents for clinical symptoms.Recent patient exposure to FluMist or other live attenuated influenza vaccines may cause inaccurate positive results. 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 Allergies verified and confirmed 5 rights. IV 05:08 09/17/2024 (NOW x1) patency established. IV site checked: no pain, redness, or swelling. Tasha Schafer R.N. IV flushed thoroughly pre-medication administration. Information Stopped reviewed with patient including reason for taking this medication, 07:38 09/17/2024 signs of allergic reaction and precautions. Verbalizes Tasha Schafer R.N. understanding. - 05:08 Tasha Schafer R.N. Scanned 07:38 09/17 Medication Discontinued: bag #1 completed. Total amount infused: 1000 mL. IV patency established. IV site checked: no pain, redness, or swelling. IV flushed thoroughly post-medication administration. - 07:38 Tasha Schafer R.N. MORPHine IVP 4 04:58 09/17 MORPHine IVP 4 mg given via Site# 1. Allergies Given mg (NOW x1, HIGH verified and confirmed 5 rights. IV patency established. IV site 04:58 09/17/2024 ALERT checked: no pain, redness, or swelling. IV flushed thoroughly Tasha Schafer R.N. MEDICATION) pre-medication administration. Information reviewed with patient Scanned including reason for taking this medication, signs of allergic reaction, precautions and sedative warning. Verbalizes understanding. (abdominal pain 8/10). - 05:04 Tasha Schafer R.N. 1 of 2 [employer] Medication Ordered Medication Administration Date/Time Ondansetron IVP 4 05:05 09/17 Ondansetron IVP 4 mg given via Site# 1. Allergies Given mg (NOW x1) verified and confirmed 5 rights. IV patency established. IV site 05:05 09/17/2024 checked: no pain, redness, or swelling. IV flushed thoroughly Tasha Schafer R.N. pre-medication administration. Information reviewed with patient Scanned including reason for taking this medication, signs of allergic reaction and precautions. Verbalizes understanding. - 05:05 Tasha Schafer R.N. Prochlorperazine 05:51 09/17 Prochlorperazine (Compazine) IVP 5 mg given via Given (Compazine) IVP 5 Site# 1. Allergies verified and confirmed 5 rights. IV patency 05:51 09/17/2024 mg (NOW x1) established. IV site checked: no pain, redness, or swelling. IV Tasha Schafer R.N. flushed thoroughly pre-medication administration. Information Scanned reviewed with patient including reason for taking this medication, signs of allergic reaction and precautions. Verbalizes understanding. Medication Wastage: 5 mg wasted. - 06:02 Tasha Schafer R.N. HYDROmorphone 06:29 09/17 HYDROmorphone (Dilaudid) IVP 1 mg given via Site# Given (Dilaudid) IVP 1 mg 1. Allergies verified and confirmed 5 rights. IV patency established. 06:29 09/17/2024 (NOW x1, HIGH IV site checked: no pain, redness, or swelling. IV flushed thoroughly Tasha Schafer R.N. ALERT pre-medication administration. Information reviewed with patient Scanned MEDICATION) including reason for taking this medication, signs of allergic reaction, precautions and sedative warning. Verbalizes understanding. (abdominal pain 01/03). - 06:32 Tasha Schafer R.N. 2 of 2 Normal [facility] ED NURSES CLINICAL NOTEon ED NURSES CLINICAL NOTE Nurse Narrative Nurse Clinical Narrative [address] [address] [id number] 09/17/2024 Patient: DALY EVANS Sex: Female : 1985 Age: 39y Primary Insurance: [employer] Policy Number: [id number] Subscriber: Other Disposition: Discharge to Senior Living Disposition Decision Time: 07:40 09/17/2024 Departure Time: 08:02 09/17/2024 TRIAGE Triage time: 04:35 09/17/2024. -- 04:52 09/17/24 EDT Vikki Harris R.N. 04:44 09/17/24. BP: 139/87 (regular cuff) taken on left arm, while lying. MAP: 104. HR: 101. Regular and tachycardic. RR: 11. Regular and unlabored. O2 saturation: 98% on room air. Temperature: 98 F (oral). Pain level now 8/10. Describes the pain as sharp. Constant. -- 04:45 09/17/24 EDT Vikki Harris R.N. Historian: (patient). Accompanied by family. Primary physician (krystian). Acuity: LEVEL 2. Chief Complaint: ABDOMINAL PAIN and ACHES (pain to abd upper quadrants radiating to lower quadrants). 04:47 09/17/24. ( onset on 09/14/24). The patient has had nausea and abdominal pain. The patient has had vomiting (yellow fluid multiple times). The patient has had fever (102 2 days ago). ( Pt is on TPN with her PICC Line). 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 SEPSIS SCREEN: POSITIVE. SIRS criteria negative: heart rate greater than 90. Possible sources of infection: acute abdomen. 1 of 6 Nurse Narrative SEVERE SEPSIS SCREEN NEGATIVE. No signs of organ dysfunction present. -- 04:47 09/17/24 EDT Vikki Harris R.N. Measurements: 04:44 09/17/24 Wt: 97.5 kg, Ht/Jean-Paul: 67.0 in, BMI: 33.67 -- 04:44 09/17/24 EDT Vikki Harris R.N. Medications: acetaminophen 325 mg chewable tablet: 650 mg every 6 hours for pain. -- 04:41 09/17/24 EDT Aranza Winn R.N. gabapentin 600 mg tablet: 600 mg every 8 hours . -- 04:50 09/17/24 EDT Aranza Winn R.N. loperamide 2 mg capsule: four times a day before meals. (and at bedtime) -- 04:55 09/17/24 EDT Aranza Winn R.N. OLANZapine 20 mg tablet: 20 mg once a day every PM. -- 05:00 09/17/24 EDT Aranza Winn R.N. escitalopram 20 mg tablet: once a day every PM. -- 05:00 09/17/24 EDT Aranza Winn R.N. magnesium 400 mg (as magnesium oxide) tablet: 400 mg once a day every AM. -- 05:00 09/17/24 EDT Aranza Winn R.N. aspirin 81 mg chewable tablet: 81 mg once a day every AM. -- 05:01 09/17/24 EDT Aranza Winn R.N. atorvastatin 40 mg tablet: 40 mg once a day every PM. -- 05:09/17/24 EDT Aranza Winn R.N. pantoprazole 40 mg tablet,delayed release: once a day every AM. -- 05:01 09/17/24 EDT Aranza Winn R.N. NovoLIN R Regular U-100 Insulin 100 unit/mL injection solution: 30 units once a day every AM. (into TPN bag prior to infusion.) -- 05:01 09/17/24 EDT Aranza Winn R.N. Lantus U-100 Insulin 100 unit/mL subcutaneous solution: 10 units once a day every AM. -- 05:02 09/17/24 EDT Aranza Winn R.N. enoxaparin 100 mg/mL subcutaneous syringe: 95 mg every 12 hours . -- 05:03 09/17/24 EDT Aranza Winn R.N. dextrose 15 gram/32 mL oral gel packet: 15 grams as needed. (for blood glucose is less then 70mg/dl) -- 05:09 09/17/24 EDT Aranza Winn R.N. ondansetron 4 mg disintegrating tablet: 4 mg every 6 hours as needed. -- 05:11 09/17/24 EDT Aranza Winn R.N. TPN: (90ML/HR FOR 1 HOUR, 182ML/HR FOR 10 HOURS, 90ML/HR FOR 1 HOUR.) -- 05:15 09/17/24 EDT Aranza Winn R.N. Allergies: no known drug allergies -- 04:39 09/17/24 EDT Vikki Harris R.N. 2 of 6 Nurse Narrative ADDITIONAL SURGERIES: abd surgery with colostomy -- 04:40 09/17/24 EDT Vikki Harris R.N. Cholecystectomy -- 04:40 09/17/24 EDT Vikki Harris R.N. -- 04:41 09/17/24 EDT Vikki Steven, R.N. Carpal Tunnel Surgery -- 04:41 09/17/24 EDT Vikki Harris R.N. compartmental syndrome bilat legs -- 04:41 09/17/24 EDT Vikki Harris R.N. History 04:47 09/17/24. PAST MEDICAL HX: LNMP: Last normal menstrual period was 3 weeks ago- 3 weeks. Denies current . SOCIAL HX: Former smoker, end date 06/2024. Alcohol use. (0). Drug use. (0). The patient has not traveled outside the [place] Infectious disease exposure: No infectious disease exposure. The patient was exposed to influenza. The patient was not exposed to C-diff or Coronavirus. ABUSE ASSESSMENT: The patient answered yes to the question(s) Do you feel safe in your home? and no to the question(s) Are you afraid to go home?. SELF HARM ASSESSMENT: Self harm assessment was performed. The patient answered no to the question(s) Have you recently felt down, depressed, or hopeless? and Do you have thoughts of harming or killing yourself?. FALL RISK ASSESSMENT: Fall risk assessment completed. No risk factors identif (more content not included)... Normal [facility] ED ORDER SHEET (CPOE ONLY)on 09-17-2024 ED ORDER SHEET (CPOE ONLY) Order Sheet Order Sheet [address] [address] [id number] 09/17/2024 Patient: DALY EVANS Sex: Female : 1985 Age: 39y MEASUREMENTS: Wt: 97.5 kg, Ht/Jean-Paul: 67.0 in, BMI: 33.67 ALLERGIES: No known drug allergies MEDICATION/IV/DRIP/FLUID ORDERS Order Description Priority Entered Acknowledged Completed IV NS 0.9 %1000 mL at 999 04:48 09/17/2024 04:49 05:08 mL/hr (NOW x1) Dotne Meza D.O. 09/17/2024 09/17/2024 Tasha Sanchez R.N. R.N. MORPHine IVP4 mg (NOW x1, 04:53 09/17/2024 05:04 HIGH ALERT MEDICATION) Donte Meza D.O. 09/17/2024 Tasha Schafer R.N. Ondansetron IVP4 mg (NOW x1) 04:53 09/17/2024 05:05 Donte Meza D.O. 09/17/2024 Tasha Schafer R.N. Prochlorperazine (Compazine) 05:45 09/17/2024 05:48 06:02 IVP5 mg (NOW x1) Donte Meza D.O. 09/17/2024 09/17/2024 Tasha Hinson R.N. R.N. 1 of 4 Order Sheet Reason for ordering with alerts: Clinical consideration given --05:45 09/17/2024 Donte Meza D.O. HYDROmorphone (Dilaudid) 06:13 09/17/2024 06:32 IVP1 mg (NOW x1, HIGH ALERT Donte Meza D.O. 09/17/2024 MEDICATION) Tasha Schafer R.N. Reason for ordering with alerts: Clinical consideration given --06:13 09/17/2024 Donte Meza D.O. IV NS 0.9 %1000 mL at 999 07:05 09/17/2024 Cancelled: Wrong Patient mL/hr (NOW x1) Dnote Meza D.O. 07:07 EDT Donte Meza D.O. Reason for ordering with alerts: Clinical consideration given --07:05 09/17/2024 Donte Meza D.O. LAB ORDERS Order Description Priority Entered Acknowledged Collected Completed CBC w Diff Stat Stat 04:48 09/17/2024 04:49 09/17/2024 05:08 09/17/2024 Renae Riggs Crystal Brenner, R.N. R.N. CMP Stat Stat 04:48 09/17/2024 04:49 09/17/2024 05:08 09/17/2024 Renae Riggs Crystal Brenner, R.N. RIrene Blood Culture Stat 04:48 09/17/2024 04:49 09/17/2024 05:08 09/17/2024 [Irasema] # 1 Stat Renae Riggs Crystal Brenner, R.N. R.N. Blood Culture Stat 04:48 09/17/2024 04:49 09/17/2024 06:06 09/17/2024 [Irasema] # 2 Stat Renae Riggs Crystal Brenner, R.N. R.N. RSV Stat Stat 04:48 09/17/2024 04:49 09/17/2024 06:06 09/17/2024 Renae Riggs Crystal Brenner, R.N. R.N. Troponin-I Stat Stat 04:48 09/17/2024 04:49 09/17/2024 05:09 09/17/2024 2 of 4 Order Sheet Renae Riggs Crystal Brenner, R.N. R.N. EKG - ED Stat Stat 04:48 09/17/2024 04:49 09/17/2024 06:06 09/17/2024 Renae Riggs Crystal Brenner, R.N. R.N. Lactate, Serum Stat Stat 04:48 09/17/2024 04:49 09/17/2024 05:08 09/17/2024 Renae Riggs Crystal Brenner, R.N. R.N. Urinalysis Stat Stat 04:48 09/17/2024 04:49 09/17/2024 Renae Riggs R.N. Flu Swab (Influenzae Stat 04:49 09/17/2024 04:51 09/17/2024 06:07 09/17/2024 AAg) Stat Renae Riggs Crystal Brenner, R.N. R.N. Rapid COVID (SARS) Stat 04:49 09/17/2024 04:51 09/17/2024 06:07 09/17/2024 ANTIGEN TEST Stat Renae Riggs Crystal Brenner, R.N. R.N. HCG, Qual Serum Stat Stat 04:54 09/17/2024 05:10 09/17/2024 06:07 09/17/2024 Renae Riggs Crystal Brenner, R.N. R.N. CRP Stat Stat 04:54 09/17/2024 05:10 09/17/2024 06:07 09/17/2024 Renae Riggs Crystal Brenner, R.N. RIrene Lipase Stat Stat 04:55 09/17/2024 05:10 09/17/2024 06:07 09/17/2024 Renae Riggs Crystal Brenner, R.N. RIrene DIAGNOSTIC STUDY ORDERS Order Description Priority Entered Acknowledged Completed Chest 1V Stat Stat 04:48 09/17/2024 04:49 05:09 3 of 4 Order Sheet Donte Meza D.O. 09/17/2024 09/17/2024 Tasha Sanchez R.N. R.Brigid Reason for Study: Pneumonia CT ABD/PEL w Cont Stat Stat 04:48 09/17/2024 04:49 06:06 Donte Meza D.O. 09/17/2024 09/17/2024 Tasha Sanchez R.N. R.Brigid Reason for Study: Abdominal Pain STAFF ORDERS Order Description Priority Entered Acknowledged Collected Completed Vital Signs every 30 04:48 09/17/2024 04:49 09/17/2024 05:09 09/17/2024 minutes Renae Riggs Crystal Brenner, R.NPriscila R.Brigid [employer] Director 04:48 09/17/2024 04:49 09/17/2024 05:09 09/17/2024 Renae Riggs Crystal Brenner, R.N. RIrene Oxygen titrate to 92% 04:48 09/17/2024 04:49 09/17/2024 05:09 09/17/2024 Renae Riggs Crystal Brenner, R.N. RIrene [Electronically signed by Donte Meza D.O. (09/17/2024 08:24 EDT)] 4 of 4 Normal [facility] ED PHYSICIAN CLINICAL REPORT on 09-17-2024 ED PHYSICIAN CLINICAL REPORT Narrative Physician Clinical Narrative [facility] [address] [place] [address] [phone] 09/17/2024 Patient: DALY EVANS Sex: Female : 1985 Age: 39y Primary Insurance: [employer] Policy Number: [id number] Subscriber: Other Disposition: Discharge to Senior Living Disposition Decision Time: 07:40 09/17/2024 Departure Time: 08:02 09/17/2024 Measurements Wt: 97.5 kg, Ht/Jean-Paul: 67.0 in, BMI: 33.67 Initial Vital Sign Measured Time BP MAP HR RR O2Sat ETCO2 Temp Pain GCS RTS 04:35 09/17/2024 139/87 94 107 Time Seen: 04:32 09/17/2024. Arrived- By ambulance. Historian- patient. 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 HISTORY OF PRESENT ILLNESS Chief Complaint: ABDOMINAL PAIN. It is described as sharp. No radiation. It is described as located in the lower abdomen. This started 3 days ago on tuesday and is still present. At its maximum, severity described as severe. When seen in the E.D., severity described as moderate. The patient has had nausea and vomiting. No diarrhea. Similar symptoms previously. None. Recent medical care: Not recently seen/assessed. REVIEW OF SYSTEMS 1 of 16 Narrative EYES: No blurred vision. CONSTITUTIONAL: The patient has had fever and chills but not had weight loss. : No difficulty with urination, pain with urination or urinary frequency. GI: No constipation, black stools or hematemesis. CVS: No chest pain. RESPIRATORY: No difficulty breathing. MUSCULOSKELETAL: No joint pain or back pain. SKIN: No skin rash. THROAT: No sore throat. NEUROLOGICAL: No headache. PAST HISTORY See nurses notes. Surgeries: abd surgery with colostomy Carpal Tunnel Surgery Cholecystectomy compartmental syndrome bilat legs Medications: acetaminophen 325 mg chewable tablet: 650 mg every 6 hours for pain. aspirin 81 mg chewable tablet: 81 mg once a day every AM. atorvastatin 40 mg tablet: 40 mg once a day every PM. dextrose 15 gram/32 mL oral gel packet: 15 grams as needed. (for blood glucose is less then 70mg/dl) enoxaparin 100 mg/mL subcutaneous syringe: 95 mg every 12 hours . escitalopram 20 mg tablet: once a day every PM. gabapentin 600 mg tablet: 600 mg every 8 hours . Lantus U-100 Insulin 100 unit/mL subcutaneous solution: 10 units once a day every AM. loperamide 2 mg capsule: four times a day before meals. (and at bedtime) magnesium 400 mg (as magnesium oxide) tablet: 400 mg once a day every AM. NovoLIN R Regular U-100 Insulin 100 unit/mL injection solution: 30 units once a day every AM. (into TPN bag prior to infusion.) OLANZapine 20 mg tablet: 20 mg once a day every PM. ondansetron 4 mg disintegrating tablet: 4 mg every 6 hours as needed. pantoprazole 40 mg tablet,delayed release: once a day every AM. TPN: (90ML/HR FOR 1 HOUR, 182ML/HR FOR 10 HOURS, 90ML/HR FOR 1 HOUR.) Allergies: no known drug allergies SOCIAL HISTORY 2 of 16 Narrative Former smoker. No alcohol use or drug use. ADDITIONAL NOTES The nursing notes have been reviewed. PHYSICAL EXAM Appearance: Alert. Oriented X3. Appears to be in pain. Patient in mild distress. Eyes: Pupils equal, round and reactive to light. ENT: Nose normal. Dry mucous membranes present. Pharynx normal. Neck: Normal inspection. Neck supple. CVS: Normal heart rate and rhythm. Heart sounds normal. Pulses normal. Respiratory: No respiratory distress. Breath sounds normal. Chest nontender. Abdomen: Soft. Moderate tenderness in the periumbilical area with guarding present. No rebound tenderness. Abnormal bowel sounds: diminished. No organomegaly. No mass. No distention. (Large midline abdominal scar with gilberto. No dehiscence or erythema about the wound noted. Colostomy bag noted.). Skin: Skin warm and dry. Pallor. No rash. Extremities: Extremities exhibit normal ROM. No lower extremity edema. Neuro: Oriented X 3. No motor deficit. LABS, X-RAYS, AND EKG CT Abdomen - Pelvis: Left-sided ostomy. Extensive bowel wall thickening throughout the colon with adjacent fat stranding consistent with colitis. fatty infiltration of the liver. Trace fluid in the pelvis. Post cholecystectomy. Post appendectomy. No free air in the abdomen or pelvis. No evidence of bowel obstruction. No evidence of hydronephrosis. or nephrolithiasis. The study was interpreted by the radiologist. Interpretation time: 07:12 09/17/2024. Laboratory Tests: CBC + DIFF Final STACEY: 09/17/2024 04:40:00 EDT MsgRcvd: 09/17/2024 05:53 EDT Lab Test Result Reference Status Received Comments 09/17/2024 05:53 CBC-COMPLETE CBC + DIFF Final EDT BLOOD COUNT 3 of 16 Narrative Lab Test Result Reference Status Received Comments 09/17/2024 05:53 WBC 10.4 x 10/UL 4.5 - 10.8 Final EDT 3.39 x 10/UL 09/17/2024 05:53 RBC 4.10 - 5.30 Final Below low normal EDT (more content not included)... Normal [facility] ED [facility] 09-17-2024 ED [place] [address] [place] [address] [phone] 09/17/2024 Patient: DALY EVANS Sex: Female : 1985 Age: 39y Facility Professional Category Item Description Code Code Quantity Fee Total Drugs Normal Saline 080738 1 $0.00 $0.00 1000cc (234924) Nurse/E/M EMERGENCY 462449 1 $0.00 $0.00 DEPT VISIT HIGH SEVERITYFUNCJ (70528-56) Nurse/IV/IM/Infusions Hydration 090990 3 $0.00 $0.00 additional hour (11499) Nurse/IV/IM/Infusions IVP additional 846591 3 $0.00 $0.00 push (07246) Nurse/IV/IM/Infusions IVP initial (49605) 808318 1 $0.00 $0.00 Nurse/Supplies Central Line 155895 1 $0.00 $0.00 Dressing (199060) Grand $0.00 Total Providers 1 of 2 [place] Donte Meza D.O. Chief Complaint ABDOMINAL PAIN. Principal Diagnosis Generalized abdominal pain. (Postoperative abdominal pain). Vomiting with nausea. status post abdominal surgery with left-sided ostomy. ICD-10 Codes R10.84: Generalized abdominal pain R11.2: Nausea with vomiting, unspecified 2 of 2 Normal [facility] ED VISIT SUMMARYon ED VISIT SUMMARY Visit Overview Visit Overview [facility] [address] [place] [address] [phone] 09/17/2024 Patient: DALY EVANS Sex: Female : 1985 Age: 39y 09/17/2024 08:24 AM EDT ED Arrival:04:30 09/17/2024 EDT Status:not Recent Travel:no Language:eng Adv Directive:No Isolation Status: Ethnicity:N Fall Risk:no risk Infectious Disease Exposure:yes Measurements:5'7 / 170.2 Self-Harm Status:risk Sepsis Screen:positive cm 215.0 lb / 97.5 kg Chief Complaint:ABDOMINAL PAIN, ACHES, (102 2 days ago), (boland ), (onset on 09/14/24 ), (pain to abd upper quadrants radiating to lower quadrants), (Pt is on TPN with her PICC Line), (yellow fluid multiple times), and (Zofran and Gabapentin) ALLERGIES No Known Drug Allergies HOME MEDICATIONS acetaminophen 325 mg chewable tablet: 650 mg every 6 hours for pain. 1 of 4 Visit Overview aspirin 81 mg chewable tablet: 81 mg once a day every AM. atorvastatin 40 mg tablet: 40 mg once a day every PM. dextrose 15 gram/32 mL oral gel packet: 15 grams as needed. (for blood glucose is less then 70mg/dl) enoxaparin 100 mg/mL subcutaneous syringe: 95 mg every 12 hours . escitalopram 20 mg tablet: once a day every PM. gabapentin 600 mg tablet: 600 mg every 8 hours . Lantus U-100 Insulin 100 unit/mL subcutaneous solution: 10 units once a day every AM. loperamide 2 mg capsule: four times a day before meals. (and at bedtime) magnesium 400 mg (as magnesium oxide) tablet: 400 mg once a day every AM. NovoLIN R Regular U-100 Insulin 100 unit/mL injection solution: 30 units once a day every AM. (into TPN bag prior to infusion.) OLANZapine 20 mg tablet: 20 mg once a day every PM. ondansetron 4 mg disintegrating tablet: 4 mg every 6 hours as needed. pantoprazole 40 mg tablet,delayed release: once a day every AM. TPN: (90ML/HR FOR 1 HOUR, 182ML/HR FOR 10 HOURS, 90ML/HR FOR 1 HOUR.) PAST MEDICAL HISTORY / PROBLEMS LNMP: Last normal menstrual period was 3 weeks ago- 3 weeks See nurses notes PAST SURGICAL HISTORY abd surgery with colostomy Carpal Tunnel Surgery Cholecystectomy SOCIAL HISTORY Smoking status: No Alcohol use: Yes Drug use: Yes ED COURSE MEDICATIONS GIVEN IN EMERGENCY DEPARTMENT 04:58 09/17/24 MORPHine IVP 4 mg 2 of 4 Visit Overview 05:05 09/17/24 Ondansetron IVP 4 mg 05:08 09/17/24 IV NS 0.9 % 1000 mL 999 mL/hr 05:51 09/17/24 Prochlorperazine (Compazine) IVP 5 mg 06:29 09/17/24 HYDROmorphone (Dilaudid) IVP 1 mg IV SITE INFORMATION 04:59 09/17/24 Site #1 indwelling PICC right upper arm, 18g. INTAKE OUTPUT REASSESMENT (most recent) 05:10 09/17/24. To room via stretcher. Patient gowned. ( Patient reports abdominal pain since Tuesday with nausea and vomiting. Recent ileostomy placement at [facility]). GENERAL / NEURO / PSYCH: Alert. Oriented X 4. Appears in pain. RESPIRATORY: Respirations not labored. Breath sounds within normal limits. CVS: Normal sinus rhythm noted. Cardiac rhythm: sinus tachycardia. Capillary refill less than 2 seconds. GI / : The patient has had nausea. Emesis noted. Abdominal tenderness. SKIN: ( Midline abdominal incision with gilberto. Incision with gilberto on lateral and medial lower extremities from fasciotomy). VITAL SIGNS First Vitals Last Vitals Temp 04:35 09/17/24 Temp 08:00 09/17/24 BP 04:35 09/17/24 139/87 BP 08:00 09/17/24 HR 04:35 09/17/24 107 HR 08:00 09/17/24 RR 04:35 09/17/24 RR 08:00 09/17/24 16 O2 Sat 04:35 09/17/24 O2 Sat 08:00 09/17/24 Pain 04:35 09/17/24 Pain 08:00 09/17/24 5 ETCO2 04:35 09/17/24 ETCO2 08:00 09/17/24 GCS 04:35 09/17/24 GCS 08:00 09/17/24 RTS 04:35 09/17/24 RTS 08:00 09/17/24 PROCEDURES NURSING INTERVENTIONS LABS / STUDIES LABS / STUDIES ORDERED 3 of 4 Visit Overview Blood Culture [Irasema] # 1 Blood Culture [Irasema] # 2 CBC w Diff Chest 1V CMP CRP CT ABD/PEL w Cont EKG - ED Flu Swab (Influenzae AAg) HCG, Qual Serum Lactate, Serum Lipase Rapid COVID (SARS) ANTIGEN TEST RSV Troponin-I Urinalysis CLINICAL IMPRESSION GENERALIZED ABDOMINAL PAIN. (POSTOPERATIVE ABDOMINAL PAIN) VOMITING WITH NAUSEA 4 of 4 Normal [facility] ED VITALS FLOW SHEETon 09-17 ED VITALS FLOW SHEET Vitals Vital Sign Flow Sheet [address] [address] [phone] 09/17/2024 Patient: DALY EVANS Sex: Female : 1985 Age: 39y Measurements Wt: 97.5 kg, Ht/Jean-Paul: 67.0 in, BMI: 33.67 Measured Time BP MAP HR RR O2Sat ETCO2 Temp Pain GCS RTS 08:00 09/17/2024 16 5 07:50 09/17/2024 163/107 121 103 07:45 09/17/2024 112 96% 07:40 09/17/2024 107 98% 07:35 09/17/2024 107 96% 07:35 09/17/2024 155/109 122 103 07:30 09/17/2024 109 98% 07:25 09/17/2024 110 97% 07:20 09/17/2024 108 97% 07:20 09/17/2024 163/110 127 110 07:15 09/17/2024 118 99% 07:10 09/17/2024 110 96% 07:05 09/17/2024 108 96% 07:05 09/17/2024 150/99 115 101 07:00 09/17/2024 103 97% 1 of 3 Vitals Measured Time BP MAP HR RR O2Sat ETCO2 Temp Pain GCS RTS 06:55 09/17/2024 103 96% 06:50 09/17/2024 104 96% 06:50 09/17/2024 155/103 116 100 06:45 09/17/2024 100 98% 06:40 09/17/2024 101 96% 06:35 09/17/2024 102 97% 06:35 09/17/2024 145/99 119 100 06:30 09/17/2024 102 98% 06:20 09/17/2024 148/94 111 98 06:05 09/17/2024 145/93 110 106 06:04 09/17/2024 107 95% 05:59 09/17/2024 107 99% 05:54 09/17/2024 104 98% 05:50 09/17/2024 136/94 104 113 05:49 09/17/2024 103 98% 05:44 09/17/2024 108 98% 05:39 09/17/2024 107 98% 05:32 09/17/2024 102 98% 05:27 09/17/2024 101 99% 05:22 09/17/2024 89 99% 05:17 09/17/2024 98 98% 05:12 09/17/2024 93 99% 05:07 09/17/2024 96 98% 05:04 09/17/2024 128/91 101 99 05:02 09/17/2024 98 99% 2 of 3 Vitals Measured Time BP MAP HR RR O2Sat ETCO2 Temp Pain GCS RTS 04:57 09/17/2024 104 99% 04:52 09/17/2024 100 98% 04:49 09/17/2024 128/104 109 103 04:47 09/17/2024 100 98% 04:44 09/17/2024 139/87 104 101 11 98% RA 98.0 F 8 04:42 09/17/2024 103 99% 04:37 09/17/2024 96 98% 04:35 09/17/2024 139/87 94 107 3 of 3 Normal [facility] INFLUENZA VIRUS RAPID A/Bon 09-17-2024 INFLUENZA VIRUS RAPID A/B INFLUENZA A NEGATIVE INFLUENZA B NEGATIVE INTERNAL NEG QC PASS INTERNAL POS QC PASS EXTERNAL QC DONE? YES SEND TO IC? NO A NEGATIVE TEST RESULT DOES NOT EXCLUDE INFECTION WITH INFLUENZA A OR B. THEREFORE, THE RESULTS OBTAINED FROM THIS FLU TEST SHOULD BE USED IN CONJUCTION WITH CLINICAL FINDINGS TO MAKE AN ACCURATE DIAGNOSIS. A POSITIVE RESULT DOES NOT RULE OUT CO-INFECTIONS WITH OTHER PATHOGENS OR IDENTIFY ANY SPECIFIC INFLUENZA A VIRUS SUBTYPE.CO-INFECTION WITH INFLUENZA A AND B IS RARE. IT IS RECOMMENDED THAT DUAL POSITIVE RESULTS BE CONFIRMED BY VIRAL CULTURE OR AN FDA-CLEARED INFLUENZA A AND B MOLECULAR ASSAY. INDIVIDUALS WHO HAVE RECEIVED NASALLY ADMINISTERED INFLUENZA A VACCINE MAY TEST POSITIVE IN COMMERCIALLY AVAILABLE INFLUENZA RAPID DIAGNOSTIC TESTS FOR UP TO THREE DAYS. RESULT CRITICAL? NO Normal [facility] Comment on above: Performed By: #### 2 [id number] #### [place] [address] LACTATEon 09-17-2024 Lactate [Moles/Vol] 1.4 mmol/L Normal 0.4 - 2.0 [facility] Comment on above: Performed By: #### 2 77688 #### [place] [address] LIPASEon 09-17-2024 Lipase [Catalytic activity/Vol] 38.0 U/L Normal 15.0 - 78.0 [facility] Comment on above: Result Comment: *PLE ASE NOTE THAT RANGES FOR LIPASE HAVE CHANGED OF 06/24/23 DUE TO AN ASSAY UPDATE BY THE ACCOUNTANT PROPERTY.THE NEW ASSAY RANGE IS 6-250 U/L, WITH A REFERENCE RANGE OF 16-77 U/L. Performed By: #### 2 11851 #### [facility],[address] [place] [address] SERUM QUALon 09-17 EXTERNAL QC DONE? YES Normal [facility] Comment on above: Performed By: #### 2 53451 ####[facility],[address] [place] [address] INTERNAL QC PASS Normal [facility] Comment on above: Performed By: #### 2 34761 ####[facility],[address] [place] [address] SER Negative Normal NEGATIVE [facility] Comment on above: Performed By: #### 2 10232 ####[facility],[address] [place] [address] RSVon 09-17-2024 RSV RSV NEGATIVE INTERNAL NEG QC PASS INTERNAL POS QC PASS EXTERNAL QC DONE? YES THIS TESTS IS INTENDED FOR IN VITRO DIAGNOSTIC USE TO AID IN THE DIAGNOSIS OF RESPIRATORY SYNCTYIAL VIRUS INFECTIONS IN AND PEDIATRIC PATIENTS UNDER THE AGE OF 5. IT IS RECOMMENDED THAT NEGATIVE TEST RESULTS BE CONFIRMED BY CELL CULTURE. Normal [facility] Comment on above: Performed By: #### 2 49923 #### [facility],[address] [place] [address] TROPONINon 09-17-2024 HS TROPONIN 7.5 pg/mL Normal 0.0 - 51.4 [facility] Comment on above: Performed By: #### 2 75326 #### [facility],[address] [place] [address] CBC + DIFFon 09-15-2024 Baso # 0.00 x10EE3/UL Normal 0.00 - 0.10 [facility] Comment on above: Performed By: #### 2 30632 #### [facility],[address] [place] [address] Basophils/100 WBC (Bld) 0.1 % Normal 0.0 - 2.0 [facility] Comment on above: Performed By: #### 2 96059 #### [facility],[address] [place] [address]11 CBC + DIFF Normal [facility] Comment on above: Result Comment: CBC- COMPLETE BLOOD COUNT Performed By: #### 2 10584 #### [facility],[address] [place] [address]19 EO # 0.01 x10EE3/UL Normal 0.00 - 0.50 [facility] Comment on above: Performed By: #### 2 57466 #### [place] [id number] Eosinophils/100 WBC (Bld) 0.3 % Normal 0.0 - 7.0 [facility] Comment on above: Performed By: #### 2 92524 #### [place] [address] Erythrocyte distribution width (RBC) [Ratio] 17.5 % High 12.0 - 15.6 [facility] Comment on above: Performed By: #### 2 13405 #### [place] [address] Hematocrit (Bld) [Volume fraction] 27.5 % Low 34.0 - 46.0 [facility] Comment on above: Performed By: #### 2 56094 #### [place] [address] Hemoglobin (Bld) [Mass/Vol] 8.7 g/dL Low 12.0 - 16.0 [facility] Comment on above: Performed By: #### 2 49828 #### [place] [address] Lymph # 0.62 x10EE3/UL Low 0.80 - 2.80 [facility] Comment on above: Performed By: #### 2 74318 #### [place] [address] Lymphocytes/100 WBC (Bld) 13.7 % Low 20.0 - 45.0 [facility] Comment on above: Performed By: #### 2 97563 #### [place] [id number] MANUAL DIFF N/A Normal [facility] Comment on above: Performed By: #### 2 85023 #### [place] [address] MCH (RBC) [Entitic mass] 25 pg Low 27 - 33 [facility] Comment on above: Performed By: #### 2 28164 #### [facility],[address] [place] [address]26[address] MCHC 32 X10 3 Normal 32 - 36 [facility] Comment on above: Performed By: #### 2 02256 #### [facility],[address] [place] [address] MCV (RBC) [Entitic vol] 80 fL Normal 80 - 99 [facility] Comment on above: Performed By: #### 2 06017 #### [facility],[address] [place] [address] Foster # 0.17 x10EE3/UL Low 0.20 - 1.00 [facility] Comment on above: Performed By: #### 2 70315 #### [facility],[address] [place] [address] MONOS % 3.8 % Normal 0.0 - 10.0 [facility] Comment on above: Performed By: #### 2 41725 #### [facility],[address] [place], [place] [phone] Morphology Stan (Bld) [Interp] N/A Normal [facility] Comment on above: Performed By: #### 2 85543 #### [facility],[address] [place] [address]804 Neut # 3.70 x10EE3/UL Normal 1.50 - 7.10 [facility] Comment on above: Performed By: #### 2 68838 #### [facility],[address] [place] [address] 12621 Neutrophils/100 WBC (Bld) 82.2 % High 46.0 - 76.0 [facility] Comment on above: Performed By: #### 2 85096 #### [facility],[address] [place], [place] [phone] PLATELET 272 x10EE3/UL Normal 150 - 450 [facility] Comment on above: Performed By: #### 2 94274 #### [facility],[address] [place] [address] 95909 Platelet mean volume (Bld) [Entitic vol] 8.2 fL Normal 6.6 - 10.5 [facility] Comment on above: Result Comment: AUTO MATED DIFFERENTIAL Performed By: #### 2 84757 #### [facility],[address] [place] [address] RBC 3.43 x 10EE6/UL Low 4.10 - 5.30 [facility] Comment on above: Performed By: #### 2 06061 #### [facility],[address] [place] [address] 97702 WBC 4.5 x 10EE3/UL Normal 4.5 - 10.8 [facility] Comment on above: Performed By: #### 2 22306 #### [facility],[address] [place], [place] [phone] CMP with eGFRon 09-15-2024 AGE 39 years Normal [facility] Comment on above: Performed By: #### 2 84238 #### [facility],[address] [place] [address] 66991 Albumin [Mass/Vol] 1.9 g/dL Low 3.4 - 5.0 [facility] Comment on above: Performed By: #### 2 55847 #### [facility],[address] [place] [address] 30522 Albumin/Globulin [Mass ratio] 0.3 {ratio} Low 0.9 - 1.6 [facility] Comment on above: Performed By: #### 2 64554 #### [facility],[address] [place] [address] 85076 ALK PHOS 82 U/L Normal 46 - 116 [facility] Comment on above: Performed By: #### 2 86837 #### [facility],[address] [place] [address] 59620 ALT [Catalytic activity/Vol] 27 U/L Normal 16 - 63 [facility] Comment on above: Performed By: #### 2 10947 #### [facility],[address] [place] [address] 48274 Anion gap [Moles/Vol] 13 mmol/L Normal 10 - 20 [facility] Comment on above: Performed By: #### 2 04413 #### [facility],[address] [place] [address] 06432 AST [Catalytic activity/Vol] 31 U/L Normal 13 - 39 [facility] Comment on above: Performed By: #### 2 09968 #### [facility],[address] [place] [address] 66114 B/C RATIO 14 ratio Normal 0 - 30 [facility] Comment on above: Performed By: #### 2 60821 #### [facility],[address] [place] [address] 26346 Bilirubin [Mass/Vol] 0.5 mg/dL Normal 0.2 - 1.0 [facility] Comment on above: Performed By: #### 2 37995 #### [facility],[address] [place] [address] 85864 Calcium [Mass/Vol] 8.0 mg/dL Low 8.5 - 10.1 [facility] Comment on above: Performed By: #### 2 30868 #### [facility],[address] [place] [address] 36813 Chloride [Moles/Vol] 100 mmol/L Normal 98 - 107 [facility] Comment on above: Performed By: #### 2 27968 #### [facility],[address] [place] [address] 49317 CMP with eGFR Normal [facility] Comment on above: Result Comment: COMP REHENSIVE METABOLIC PANEL Performed By: #### 2 62809 #### [facility],[address] [place] [address] 11249 CO2 [Moles/Vol] 24.6 mmol/L Normal 21.0 - 32.0 [facility] Comment on above: Performed By: #### 2 42738 #### [facility],[address] [place], [place] [phone] Creatinine [Mass/Vol] 1.06 mg/dL High 0.55 - 1.02 [facility] Comment on above: Performed By: #### 2 53133 #### [facility],[address] [place] [address] eGFR 57 ML/MINUTE Low 60 - 999 [facility] Comment on above: Performed By: #### 2 74721 #### [facility],[address] [place] [address] 30611 GFR/1.73 sq M.predicted among non-blacks MDRD (S/P/Bld) [Vol rate/Area] mL/min/{1.73_m2} Normal 60 - 999 [facility] Comment on above: Result Comment: ACCO RDING TO THE NATIONAL KIDNEY DISEASE EDUCATION PROGRAM(NKDE), A NORMAL eGFR IS A VALUE GREATER THAN OR EQUAL TO 60 ML/MIN/1.73 SQ METERS. CHRONIC KIDNEY DISEASE: <60mL/MIN/1.73 SQ METERS KIDNEY FAILURE: <15mL/MIN/1.73 SQ METERS THIS TEST SHOULD ONLY BE USED FOR PATIENTS 18 YEARS OF AGE AND OLDER. Performed By: #### 2 36982 #### [facility],[address] [place] [address] 55456 Globulin (S) [Mass/Vol] 5.5 g/dL High 1.5 - 3.8 [facility] Comment on above: Performed By: #### 2 49236 #### [facility],[address] [place], [place] [id number] Glucose [Mass/Vol] 105 mg/dL Normal 74 - 106 [facility] Comment on above: Performed By: #### 2 65121 #### [facility],[address] [place] [address] 17275 Potassium [Moles/Vol] 3.7 mmol/L Normal 3.5 - 5.1 [facility] Comment on above: Performed By: #### 2 32472 #### [facility],[address] [place] [address] 94202 Protein [Mass/Vol] 7.4 g/dL Normal 6.4 - 8.2 [facility] Comment on above: Performed By: #### 2 47775 #### [facility],[address] [place] [address] 32345 Sodium [Moles/Vol] 134 mmol/L Low 136 - 145 [facility] Comment on above: Performed By: #### 2 05601 #### [facility],[address] [place] [address] 00790 Urea nitrogen [Mass/Vol] 15 mg/dL Normal 7 - 18 [facility] Comment on above: Performed By: #### 2 57019 #### [facility],[address] [place] [address] 64953 CBC + DIFFon 09-13-2024 Baso # 0.02 x10EE3/UL Normal 0.00 - 0.10 [facility] Comment on above: Performed By: #### 2 41416 #### [facility],[address] [place] [address] 36459 Basophils/100 WBC (Bld) 0.3 % Normal 0.0 - 2.0 [facility] Comment on above: Performed By: #### 2 99731 #### [facility],[address] [place] [address] 29941 CBC + DIFF Normal [facility] Comment on above: Result Comment: CBC- COMPLETE BLOOD COUNT Performed By: #### 2 08289 #### [facility],[address] [place] [address] 16026 EO # 0.26 x10EE3/UL Normal 0.00 - 0.50 [facility] Comment on above: Performed By: #### 2 04090 #### [facility],[address] [place] [address] Eosinophils/100 WBC (Bld) 3.9 % Normal 0.0 - 7.0 [facility] Comment on above: Performed By: #### 2 20455 #### [place] [address] Erythrocyte distribution width (RBC) [Ratio] 17.0 % High 12.0 - 15.6 [facility] Comment on above: Performed By: #### 2 78599 #### [place] [address] Hematocrit (Bld) [Volume fraction] 29.3 % Low 34.0 - 46.0 [facility] Comment on above: Performed By: #### 2 51332 #### [place] [address] Hemoglobin (Bld) [Mass/Vol] 9.5 g/dL Low 12.0 - 16.0 [facility] Comment on above: Performed By: #### 2 74574 #### [place] [address] Lymph # 1.51 x10EE3/UL Normal 0.80 - 2.80 [facility] Comment on above: Performed By: #### 2 97274 #### [facility],[address] [place], [place] [id number] Lymphocytes/100 WBC (Bld) 22.6 % Normal 20.0 - 45.0 [facility] Comment on above: Performed By: #### 2 71935 #### [place] [id number] MANUAL DIFF N/A Normal [facility] Comment on above: Performed By: #### 2 34262 #### [place] [address] MCH (RBC) [Entitic mass] 26 pg Low 27 - 33 [facility] Comment on above: Performed By: #### 2 26406 #### [place] [address] MCHC 33 X10 3 Normal 32 - 36 [facility] Comment on above: Performed By: #### 2 72425 #### [facility],[address] [place] [address] MCV (RBC) [Entitic vol] 81 fL Normal 80 - 99 [facility] Comment on above: Performed By: #### 2 80666 #### [facility],[address] [place] [address] Foster # 0.38 x10EE3/UL Normal 0.20 - 1.00 [facility] Comment on above: Performed By: #### 2 66350 #### [place] [address] MONOS % 5.6 % Normal 0.0 - 10.0 [facility] Comment on above: Performed By: #### 2 45000 #### [place] [address] Morphology Stan (Bld) [Interp] N/A Normal [facility] Comment on above: Performed By: #### 2 33303 #### [facility],[address] [place] [address] Neut # 4.54 x10EE3/UL Normal 1.50 - 7.10 [facility] Comment on above: Performed By: #### 2 28937 #### [place] [address] Neutrophils/100 WBC (Bld) 67.6 % Normal 46.0 - 76.0 [facility] Comment on above: Performed By: #### 2 21513 #### [place] [address] PLATELET 455 x10EE3/UL High 150 - 450 [facility] Comment on above: Performed By: #### 2 04928 #### [facility],[address] [place] [address] 15580 Platelet mean volume (Bld) [Entitic vol] 7.9 fL Normal 6.6 - 10.5 [facility] Comment on above: Result Comment: AUTO MATED DIFFERENTIAL Performed By: #### 2 77199 #### [facility],[address] [place] [address] 73957 RBC 3.63 x 10EE6/UL Low 4.10 - 5.30 [facility] Comment on above: Performed By: #### 2 18623 #### [facility],[address] [place] [address] 53786 WBC 6.7 x 10EE3/UL Normal 4.5 - 10.8 [facility] Comment on above: Performed By: #### 2 74767 #### [facility],[address] [place] [address] 84787 CMP with eGFRon 09-13-2024 AGE 39 years Normal [facility] Comment on above: Performed By: #### 2 76481 #### [facility],[address] [place] [address] 46387 Albumin [Mass/Vol] 2.1 g/dL Low 3.4 - 5.0 [facility] Comment on above: Performed By: #### 2 28241 #### [facility],[address] [place] [address] 43169 Albumin/Globulin [Mass ratio] 0.4 {ratio} Low 0.9 - 1.6 [facility] Comment on above: Performed By: #### 2 07099 #### [facility],[address] [place] [address] 63145 ALK PHOS 95 U/L Normal 46 - 116 [facility] Comment on above: Performed By: #### 2 67471 #### [facility],[address] [place] [address] 58715 ALT [Catalytic activity/Vol] 25 U/L Normal 16 - 63 [facility] Comment on above: Performed By: #### 2 35455 #### [facility],[address] [place] [address] 25052 Anion gap [Moles/Vol] 12 mmol/L Normal 10 - 20 [facility] Comment on above: Performed By: #### 2 42630 #### [facility],[address] [place], [place] [phone] AST [Catalytic activity/Vol] 20 U/L Normal 13 - 39 [facility] Comment on above: Performed By: #### 2 39206 #### [facility],[address] [place], [place] [phone] B/C RATIO 24 ratio Normal 0 - 30 [facility] Comment on above: Performed By: #### 2 75237 #### [facility],[address] [place] [address] 00273 Bilirubin [Mass/Vol] 0.4 mg/dL Normal 0.2 - 1.0 [facility] Comment on above: Performed By: #### 2 85847 #### [facility],[address] [place] [address] 79875 Calcium [Mass/Vol] 8.7 mg/dL Normal 8.5 - 10.1 [facility] Comment on above: Performed By: #### 2 65263 #### [facility],[address] [place] [address] 50384 Chloride [Moles/Vol] 102 mmol/L Normal 98 - 107 [facility] Comment on above: Performed By: #### 2 85695 #### [facility],[address] [place] [address] 44752 CMP with eGFR Normal [facility] Comment on above: Result Comment: COMP REHENSIVE METABOLIC PANEL Performed By: #### 2 23977 #### [facility],[address] [place] [address] 78518 CO2 [Moles/Vol] 27.5 mmol/L Normal 21.0 - 32.0 [facility] Comment on above: Performed By: #### 2 97461 #### [facility],[address] [place] [address] 27028 Creatinine [Mass/Vol] 0.87 mg/dL Normal 0.55 - 1.02 [facility] Comment on above: Performed By: #### 2 11594 #### [facility],[address] [place] [address] GFR/1.73 sq M.predicted among non-blacks MDRD (S/P/Bld) [Vol rate/Area] mL/min/{1.73_m2} Normal 60 - 999 [facility] Comment on above: Performed By: #### 2 10012 #### [facility],[address] [place] [address] Result Comment: ACCO RDING TO THE NATIONAL KIDNEY DISEASE EDUCATION PROGRAM(NKDE), A NORMAL eGFR IS A VALUE GREATER THAN OR EQUAL TO 60 ML/MIN/1.73 SQ METERS. CHRONIC KIDNEY DISEASE: <60mL/MIN/1.73 SQ METERS KIDNEY FAILURE: <15mL/MIN/1.73 SQ METERS THIS TEST SHOULD ONLY BE USED FOR PATIENTS 18 YEARS OF AGE AND OLDER. Globulin (S) [Mass/Vol] 5.8 g/dL High 1.5 - 3.8 [facility] Comment on above: Performed By: #### 2 04265 #### [facility],[address] [place] [address] 14264 Glucose [Mass/Vol] 74 mg/dL Normal 74 - 106 [facility] Comment on above: Performed By: #### 2 04469 #### [facility],[address] [place] [address] 11234 Potassium [Moles/Vol] 3.7 mmol/L Normal 3.5 - 5.1 [facility] Comment on above: Performed By: #### 2 77654 #### [facility],[address] [place] [address] 58057 Protein [Mass/Vol] 7.9 g/dL Normal 6.4 - 8.2 [facility] Comment on above: Performed By: #### 2 08079 #### [facility],[address] [place] [address] 26051 Sodium [Moles/Vol] 138 mmol/L Normal 136 - 145 [facility] Comment on above: Performed By: #### 2 61839 #### [facility],[address] [place] [address] 00472 Urea nitrogen [Mass/Vol] 21 mg/dL High 7 - 18 [facility] Comment on above: Performed By: #### 2 55648 #### [facility],[address] [place] [address] 48974 MAGNESIUMon 09-13-2024 Magnesium [Mass/Vol] 1.8 mg/dL Normal 1.8 - 2.4 [facility] Comment on above: Performed By: #### 2 78576 #### [facility],[address] [place] [address] 86006 CMP with eGFRon 09-10-2024 AGE 39 years Normal [facility] Comment on above: Performed By: #### 2 97412 ####[facility],[address] [place] [address] 18426 Albumin [Mass/Vol] 2.0 g/dL Low 3.4 - 5.0 [facility] Comment on above: Performed By: #### 2 26011 ####[facility],[address] [place] [address] 31369 Albumin/Globulin [Mass ratio] 0.4 {ratio} Low 0.9 - 1.6 [facility] Comment on above: Performed By: #### 2 02705 ####[facility],[address] [place] [address] 73007 ALK PHOS 93 U/L Normal 46 - 116 [facility] Comment on above: Performed By: #### 2 72832 ####[facility],[address] [place] [address] 91981 ALT [Catalytic activity/Vol] 26 U/L Normal 16 - 63 [facility] Comment on above: Performed By: #### 2 96525 ####[facility],[address] [place] [address] 76138 Anion gap [Moles/Vol] 7 mmol/L Low 10 - 20 [facility] Comment on above: Performed By: #### 2 66660 ####[facility],[address] [place] [address] 13072 AST [Catalytic activity/Vol] 22 U/L Normal 13 - 39 [facility] Comment on above: Performed By: #### 2 36740 ####[facility],[address] [place] [address] 94801 B/C RATIO 19 ratio Normal 0 - 30 [facility] Comment on above: Performed By: #### 2 17220 ####[facility],[address] [place] [address] 31472 Bilirubin [Mass/Vol] 0.3 mg/dL Normal 0.2 - 1.0 [facility] Comment on above: Performed By: #### 2 86284 ####[facility],[address] [place] [address] 74268 Calcium [Mass/Vol] 8.3 mg/dL Low 8.5 - 10.1 [facility] Comment on above: Performed By: #### 2 10898 ####[facility],[address] [place] [address] 17588 Chloride [Moles/Vol] 103 mmol/L Normal 98 - 107 [facility] Comment on above: Performed By: #### 2 32709 ####[facility],[address] [place] [address] 07332 CMP with eGFR Normal [facility] Comment on above: Result Comment: COMP REHENSIVE METABOLIC PANEL Performed By: #### 2 82034 ####[facility],[address] [place] [address] 73654 CO2 [Moles/Vol] 30.7 mmol/L Normal 21.0 - 32.0 [facility] Comment on above: Performed By: #### 2 32292 ####[facility],[address] [place] [address] 16088 Creatinine [Mass/Vol] 0.90 mg/dL Normal 0.55 - 1.02 [facility] Comment on above: Performed By: #### 2 41835 ####[facility],[address] [place] [address] 64114 GFR/1.73 sq M.predicted among non-blacks MDRD (S/P/Bld) [Vol rate/Area] mL/min/{1.73_m2} Normal 60 - 999 [facility] Comment on above: Performed By: #### 2 00505 ####[facility],[address] [place], [place] [id number] Result Comment: ACCO RDING TO THE NATIONAL KIDNEY DISEASE EDUCATION PROGRAM(NKDE), A NORMAL eGFR IS A VALUE GREATER THAN OR EQUAL TO 60 ML/MIN/1.73 SQ METERS. CHRONIC KIDNEY DISEASE: <60mL/MIN/1.73 SQ METERS KIDNEY FAILURE: <15mL/MIN/1.73 SQ METERS THIS TEST SHOULD ONLY BE USED FOR PATIENTS 18 YEARS OF AGE AND OLDER. Globulin (S) [Mass/Vol] 5.7 g/dL High 1.5 - 3.8 [facility] Comment on above: Performed By: #### 2 83358 ####[facility],[address] [place] [address] 62460 Glucose [Mass/Vol] 94 mg/dL Normal 74 - 106 [facility] Comment on above: Performed By: #### 2 73479 ####[facility],[address] [place] [address] 42425 Potassium [Moles/Vol] 3.5 mmol/L Normal 3.5 - 5.1 [facility] Comment on above: Performed By: #### 2 79837 ####[facility],[address] [place] [address] 08057 Protein [Mass/Vol] 7.7 g/dL Normal 6.4 - 8.2 [facility] Comment on above: Performed By: #### 2 75538 ####[facility],[address] [place] [address] Sodium [Moles/Vol] 137 mmol/L Normal 136 - 145 [facility] Comment on above: Performed By: #### 2 87651 ####[facility],[address] [place] [address] Urea nitrogen [Mass/Vol] 17 mg/dL Normal 7 - 18 [facility] Comment on above: Performed By: #### 2 95133 ####[facility],[address] [place] [address] MAGNESIUMon 09-10-2024 Magnesium [Mass/Vol] 1.7 mg/dL Low 1.8 - 2.4 [facility] Comment on above: Performed By: #### 2 60893 #### [facility],[address] [place] [address] 70339 CBC + DIFFon 09-06-2024 Baso # 0.04 x10EE3/UL Normal 0.00 - 0.10 [facility] Comment on above: Performed By: #### 2 08250 #### [facility],[address] [place] [address] 49733 Basophils/100 WBC (Bld) 0.4 % Normal 0.0 - 2.0 [facility] Comment on above: Performed By: #### 2 72907 #### [facility],[address] [place] [address] 94148 CBC + DIFF Normal [facility] Comment on above: Result Comment: CBC- COMPLETE BLOOD COUNT Performed By: #### 2 70786 #### [facility],[address] [place] [address] 57228 EO # 0.14 x10EE3/UL Normal 0.00 - 0.50 [facility] Comment on above: Performed By: #### 2 06522 #### [facility],[address] [place] [address] 80653 Eosinophils/100 WBC (Bld) 1.3 % Normal 0.0 - 7.0 [facility] Comment on above: Performed By: #### 2 48862 #### [facility],[address] [place] [address] Erythrocyte distribution width (RBC) [Ratio] 18.0 % High 12.0 - 15.6 [facility] Comment on above: Performed By: #### 2 83929 #### [facility],[address] [place] [address] Hematocrit (Bld) [Volume fraction] 27.9 % Low 34.0 - 46.0 [facility] Comment on above: Performed By: #### 2 30142 #### [facility],[address] [place] [address] Hemoglobin (Bld) [Mass/Vol] 9.1 g/dL Low 12.0 - 16.0 [facility] Comment on above: Performed By: #### 2 83014 #### [facility],[address] [place] [address] 14167 Lymph # 1.68 x10EE3/UL Normal 0.80 - 2.80 [facility] Comment on above: Performed By: #### 2 86565 #### [facility],[address] [place] [address] 46391 Lymphocytes/100 WBC (Bld) 16.1 % Low 20.0 - 45.0 [facility] Comment on above: Performed By: #### 2 82763 #### [facility],[address] [place], [place] [phone] MANUAL DIFF N/A Normal [facility] Comment on above: Performed By: #### 2 69826 #### [facility],[address] [place] [address] 58600 MCH (RBC) [Entitic mass] 27 pg Normal 27 - 33 [facility] Comment on above: Performed By: #### 2 00502 #### [facility],[address] [place] [address] 15763 MCHC 33 X10 3 Normal 32 - 36 [facility] Comment on above: Performed By: #### 2 12289 #### [facility],[address] [place] [address] 89163 MCV (RBC) [Entitic vol] 83 fL Normal 80 - 99 [facility] Comment on above: Performed By: #### 2 11143 #### [facility],[address] [place] [address] Foster # 0.87 x10EE3/UL Normal 0.20 - 1.00 [facility] Comment on above: Performed By: #### 2 69178 #### [facility],[address] [place] [address] 41471 MONOS % 8.4 % Normal 0.0 - 10.0 [facility] Comment on above: Performed By: #### 2 90247 #### [facility],[address] [place] [address] 75635 Morphology Stan (Bld) [Interp] N/A Normal [facility] Comment on above: Performed By: #### 2 01836 #### [facility],[address] [place] [address] 45041 Neut # 7.69 x10EE3/UL High 1.50 - 7.10 [facility] Comment on above: Performed By: #### 2 66393 #### [facility],[address] [place], [place] [phone] Neutrophils/100 WBC (Bld) 73.8 % Normal 46.0 - 76.0 [facility] Comment on above: Performed By: #### 2 22367 #### [facility],[address] [place] [address] 17519 PLATELET 722 x10EE3/UL High 150 - 450 [facility] Comment on above: Performed By: #### 2 25112 #### [facility],[address] [place] [address] 59007 Platelet mean volume (Bld) [Entitic vol] 7.5 fL Normal 6.6 - 10.5 [facility] Comment on above: Result Comment: AUTO MATED DIFFERENTIAL Performed By: #### 2 98022 #### [facility],[address] [place] [address] 12554 RBC 3.37 x 10EE6/UL Low 4.10 - 5.30 [facility] Comment on above: Performed By: #### 2 30643 #### [facility],[address] [place] [address] 24526 WBC 10.4 x 10EE3/UL Normal 4.5 - 10.8 [facility] Comment on above: Performed By: #### 2 45708 #### [facility],[address] [place] [address] 61766 CMP with eGFRon 09-06-2024 AGE 38 years Normal [facility] Comment on above: Performed By: #### 2 25753 ####[facility],[address] [place] [address] 92451 Albumin [Mass/Vol] 1.9 g/dL Low 3.4 - 5.0 [facility] Comment on above: Performed By: #### 2 54388 ####[facility],[address] [place] [address] 19552 Albumin/Globulin [Mass ratio] 0.3 {ratio} Low 0.9 - 1.6 [facility] Comment on above: Performed By: #### 2 57430 ####[facility],[address] [place] [address] 84096 ALK PHOS 97 U/L Normal 46 - 116 [facility] Comment on above: Performed By: #### 2 48252 ####[facility],[address] [place] [address] 27562 ALT [Catalytic activity/Vol] 29 U/L Normal 16 - 63 [facility] Comment on above: Performed By: #### 2 40912 ####[facility],[address] [place] [address] Anion gap [Moles/Vol] 9 mmol/L Low 10 - 20 [facility] Comment on above: Performed By: #### 2 11359 ####[facility],[address] [place] [address] AST [Catalytic activity/Vol] 28 U/L Normal 13 - 39 [facility] Comment on above: Performed By: #### 2 09964 ####[facility],[address] [place] [address] B/C RATIO 21 ratio Normal 0 - 30 [facility] Comment on above: Performed By: #### 2 27363 ####[facility],[address] [place] [address] 47684 Bilirubin [Mass/Vol] 0.3 mg/dL Normal 0.2 - 1.0 [facility] Comment on above: Performed By: #### 2 92210 ####[facility],[address] [place] [address] 21882 Calcium [Mass/Vol] 8.3 mg/dL Low 8.5 - 10.1 [facility] Comment on above: Performed By: #### 2 34510 ####[facility],[address] [place] [address] 13259 Chloride [Moles/Vol] 102 mmol/L Normal 98 - 107 [facility] Comment on above: Performed By: #### 2 60834 ####[facility],[address] [place] [address] 54263 CMP with eGFR Normal [facility] Comment on above: Result Comment: COMP REHENSIVE METABOLIC PANEL Performed By: #### 2 87171 ####[facility],[address] [place] [address] 60314 CO2 [Moles/Vol] 29.5 mmol/L Normal 21.0 - 32.0 [facility] Comment on above: Performed By: #### 2 62342 ####[facility],[address] [place] [address] 98051 Creatinine [Mass/Vol] 0.84 mg/dL Normal 0.55 - 1.02 [facility] Comment on above: Performed By: #### 2 57277 ####[facility],[address] [place], [place] [id number] GFR/1.73 sq M.predicted among non-blacks MDRD (S/P/Bld) [Vol rate/Area] mL/min/{1.73_m2} Normal 60 - 999 [facility] Comment on above: Performed By: #### 2 24998 ####[facility],[address] [place], [place] [id number] Result Comment: ACCO RDING TO THE NATIONAL KIDNEY DISEASE EDUCATION PROGRAM(NKDE), A NORMAL eGFR IS A VALUE GREATER THAN OR EQUAL TO 60 ML/MIN/1.73 SQ METERS. CHRONIC KIDNEY DISEASE: <60mL/MIN/1.73 SQ METERS KIDNEY FAILURE: <15mL/MIN/1.73 SQ METERS THIS TEST SHOULD ONLY BE USED FOR PATIENTS 18 YEARS OF AGE AND OLDER. Globulin (S) [Mass/Vol] 6.3 g/dL High 1.5 - 3.8 [facility] Comment on above: Performed By: #### 2 83627 ####[facility],[address] [place] [address] 93781 Glucose [Mass/Vol] 137 mg/dL High 74 - 106 [facility] Comment on above: Performed By: #### 2 49615 ####[facility],[address] [place] [address] 58463 Potassium [Moles/Vol] 3.8 mmol/L Normal 3.5 - 5.1 [facility] Comment on above: Performed By: #### 2 91223 ####[facility],[address] [place] [address] 63211 Protein [Mass/Vol] 8.2 g/dL Normal 6.4 - 8.2 [facility] Comment on above: Performed By: #### 2 36726 ####[facility],[address] [place] [address] 57610 Sodium [Moles/Vol] 137 mmol/L Normal 136 - 145 [facility] Comment on above: Performed By: #### 2 80232 ####[facility],[address] [place] [address] 88967 Urea nitrogen [Mass/Vol] 18 mg/dL Normal 7 - 18 [facility] Comment on above: Performed By: #### 2 59418 ####[facility],[address] [place] [address] 64180 MAGNESIUMon 09-06-2024 Magnesium [Mass/Vol] 2.0 mg/dL Normal 1.8 - 2.4 [facility] Comment on above: Performed By: #### 2 92650 ####[facility],[address] [place] [address] 91112 PHOSPHORUSon 09-06-2024 Phosphate [Mass/Vol] 3.6 mg/dL Normal 2.6 - 4.7 [facility] Comment on above: Performed By: #### 2 [id number] #### [facility],[address] [place] [id number] Culture, Blood (WB)on 2024 CUB Blood cultures x2, f rom two different sites No growth in 5 days. Normal [facility] Comment on above: Performed By: #### M 200.1000 ####[facility] [address] [place], [place], [id number] 12 Lead EKGon 08-20-2024 12 Lead EKG Normal [facility] Abdomen/Pelvis W IV Cont ONL Yon 08-20-2024 Abdomen/Pelvis W IV Cont ONLY Normal [facility] CBC W/Diff, Automatedon 07-29 STOMATOCYTE RARE Normal [facility] Comment on above: Performed By: #### L 500.4050, L700.6800, L100.0100, L501.2450, L505.5000 ####[facility] [address] [place], [address] Anisocytosis Ql (Bld) 2+ Normal [facility] Comment on above: Performed By: #### L 500.4050, L700.6800, L100.0100, L501.2450, L505.5000 ####[facility] [address] [place], [address] MICROCYTIC 1+ Normal [facility] Comment on above: Performed By: #### L 500.4050, L700.6800, L100.0100, L501.2450, L505.5000 ####[facility] [address] [place], [address] OVALOCYTE RARE Normal [facility] Comment on above: Performed By: #### L 500.4050, L700.6800, L100.0100, L501.2450, L505.5000 ####[facility] [address] [place], [address] POLYCHROMASIA 2+ Normal [facility] Comment on above: Performed By: #### L 500.4050, L700.6800, L100.0100, L501.2450, L505.5000 ####[facility] [address] [place], [address] CTA Chst, Abd, Pel W and/or WOon 08-20-2024 CTA Chst, Abd, Pel W and/or WO Normal [facility] Comprehensive Metabolic Prof ilon 08-20-2024 Albumin [Mass/Vol] 3.0 g/dL Low 3.2-5.0 [facility] Comment on above: Performed By: #### L 500.4050, L700.6800, L100.0100, L501.2450, L505.5000 ####[facility] [address] [place], [address] Albumin/Globulin [Mass ratio] 0.5 {ratio} Low 0.9-2.4 [facility] Comment on above: Performed By: #### L 500.4050, L700.6800, L100.0100, L501.2450, L505.5000 ####[facility] [address] [place], [address] ALK P 98 U/L Normal 45-117 [facility] Comment on above: Performed By: #### L 500.4050, L700.6800, L100.0100, L501.2450, L505.5000 ####[facility] [address] [place], [address] ALT [Catalytic activity/Vol] 15 U/L Normal 13-56 [facility] Comment on above: Performed By: #### L 500.4050, L700.6800, L100.0100, L501.2450, L505.5000 ####[facility] [address] [place], [address] AST [Catalytic activity/Vol] 20 U/L Normal 15-37 [facility] Comment on above: Performed By: #### L 500.4050, L700.6800, L100.0100, L501.2450, L505.5000 ####[facility] [address] [place], [address] Bilirubin [Mass/Vol] 0.30 mg/dL Normal 0.20-1.00 [facility] Comment on above: Result Comment: For patients on eltrombopag therapy, use of Dimension [place] TBIL is not recommended. Performed By: #### L 500.4050, L700.6800, L100.0100, L501.2450, L505.5000 ####[facility] [address] [place], [address] BUN/CRE 10.9 RATIO Normal 10-20 [facility] Comment on above: Performed By: #### L 500.4050, L700.6800, L100.0100, L501.2450, L505.5000 ####[facility] [address] [place], [address] CA,Total 8.8 mg/dL Normal 8.5-10.1 [facility] Comment on above: Performed By: #### L 500.4050, L700.6800, L100.0100, L501.2450, L505.5000 ####[facility] [address] [place], [address] Chloride [Moles/Vol] 106 mmol/L Normal 98-107 [facility] Comment on above: Performed By: #### L 500.4050, L700.6800, L100.0100, L501.2450, L505.5000 ####[facility] [address] [place], [address] CO2 [Moles/Vol] 22.0 mmol/L Normal 21.0-32.0 [facility] Comment on above: Performed By: #### L 500.4050, L700.6800, L100.0100, L501.2450, L505.5000 ####[facility] [address] [place], [address] Creatinine [Mass/Vol] 1.29 mg/dL High 0.55-1.02 [facility] Comment on above: Result Comment: The validity of the calculated GFR GFRAA in patients over70 years has not been determined. Clinical correlation isessential. Performed By: #### L 500.4050, L700.6800, L100.0100, L501.2450, L505.5000 ####[facility] [address] [place], [address] ECRCL 71.07 ml/min Normal [facility] Comment on above: Performed By: #### L 500.4050, L700.6800, L100.0100, L501.2450, L505.5000 ####[facility] [address] [place], [address] EST GFR - AA 59 mL/min Low >60 [facility] Comment on above: Result Comment: Afri can [place] GFR Calc Performed By: #### L 500.4050, L700.6800, L100.0100, L501.2450, L505.5000 ####[facility] [address] [place], [address] GAP 11 Normal 5-15 [facility] Comment on above: Performed By: #### L 500.4050, L700.6800, L100.0100, L501.2450, L505.5000 ####[facility] [address] [place], [address] GFR/1.73 sq M.predicted among non-blacks MDRD (S/P/Bld) [Vol rate/Area] 48 mL/min/{1.73_m2} Low >60 [facility] Comment on above: Result Comment: Non- GFR Calc Performed By: #### L 500.4050, L700.6800, L100.0100, L501.2450, L505.5000 ####[facility] [address] [place], [address] Globulin (S) [Mass/Vol] 5.6 g/dL High 2.2-4.2 [facility] Comment on above: Performed By: #### L 500.4050, L700.6800, L100.0100, L501.2450, L505.5000 ####[facility] [address] [place], [address] Glucose [Mass/Vol] 187 mg/dL High 74-106 [facility] Comment on above: Result Comment: Fast ing Glucose result greater than or equal to 126 mg/dLsuggests DIABETES MELLITUS per A.D.A. criteria. Performed By: #### L 500.4050, L700.6800, L100.0100, L501.2450, L505.5000 ####[facility] [address] [place], [address] Potassium [Moles/Vol] 3.6 mmol/L Normal 3.5-5.1 [facility] Comment on above: Performed By: #### L 500.4050, L700.6800, L100.0100, L501.2450, L505.5000 ####[facility] [address] [place], [address] Sodium [Moles/Vol] 139 mmol/L Normal 136-145 [facility] Comment on above: Performed By: #### L 500.4050, L700.6800, L100.0100, L501.2450, L505.5000 ####[facility] [address] [place], [address] T PROT 8.6 g/dL High 6.4-8.2 [facility] Comment on above: Performed By: #### L 500.4050, L700.6800, L100.0100, L501.2450, L505.5000 ####[facility] [address] [place], [address] Urea nitrogen [Mass/Vol] 14 mg/dL Normal 7-18 [facility] Comment on above: Performed By: #### L 500.4050, L700.6800, L100.0100, L501.2450, L505.5000 ####[facility] [address] [place], [address] Emergency Department Summary on 08-20-2024 Emergency Department Summary Normal [facility] Lactic Acidon 08-20-2024 Lactate [Moles/Vol] 2.2 mmol/L Invalid Interpretation Code 0.4-1.9 [facility] Comment on above: Order Comment: Y Result Comment: Crit ical Result(s) Called at: 06:12:44 08/20/2024 by:Rossana Kiser to Nina. Results read back by same. Performed By: #### L 503.6005 ####[facility] [address] [place], [address] Lipaseon 08-20-2024 Lipase [Catalytic activity/Vol] 26 U/L Low 73-393 [facility] Comment on above: Performed By: #### L 500.4050, L700.6800, L100.0100, L501.2450, L505.5000 ####[facility] [address] [place], [address] Partial Thromboplast Timeon 08-20-2024 aPTT Coag (Bld) [Time] 20.9 s Low 24.1-36.2 [facility] Comment on above: Performed By: #### L 300.3900, L300.4310 ####[facility] [address] [place], [address] ,Serum,hCG Quali.on 08-20-2024 HCG, SERUM QUAL Negative Normal [facility] Comment on above: Performed By: #### L 500.4050, L700.6800, L100.0100, L501.2450, L505.5000 ####[facility] [address] [place], [address] Prothrombin Time w/INRon INR Coag (PPP) [Relative time] 1.2 {INR} Normal [facility] Comment on above: Performed By: #### L 300.3900, L300.4310 ####[facility] [address] [place], [address] PT Coag (PPP) [Time] 14.9 s Normal 11.7-14.9 [facility] Comment on above: Performed By: #### L 300.3900, L300.4310 ####[facility] [address] [place], [address] Urinalysis, Completeon 08-20 BACTERIA 3+ /hpf Normal None Seen [facility] Comment on above: Order Comment: CLEAN CATCH Performed By: #### L 400.0001 ####[facility] [address] [place], [address] EPI,SQUAMOUS 0-5 SEEN Normal 5-10 [facility] Comment on above: Order Comment: CLEAN CATCH Performed By: #### L 400.0001 ####[facility] [address] [place], [address] RBC 0-5 SEEN Normal 0-5 [facility] Comment on above: Order Comment: CLEAN CATCH Performed By: #### L 400.0001 ####[facility] [address] [place], [address] Mucus Ql (Urine sed) 0 SEEN Normal [facility] Comment on above: Order Comment: CLEAN CATCH Performed By: #### L 400.0001 ####[facility] [address] [place], [address] WBC 0 SEEN Normal 0-5 [facility] Comment on above: Order Comment: CLEAN CATCH Performed By: #### L 400.0001 ####[facility] [address] [place], [address] Urine Drug Screen (VISTA)on 08-20-2024 AMPHETAMINES Negative Normal <1000 ng/mL [facility] Comment on above: Performed By: #### L 500.4050, L700.6800, L100.0100, L501.2450, L505.5000 ####[facility] [address] [place], [address] BARBITIURATES Negative Normal < 200 ng/mL [facility] Comment on above: Performed By: #### L 500.4050, L700.6800, L100.0100, L501.2450, L505.5000 ####[facility] [address] [place], [phone] BENZODIAZIPINE Negative Normal < 200 ng/mL [facility] Comment on above: Performed By: #### L 500.4050, L700.6800, L100.0100, L501.2450, L505.5000 ####[facility] [address] [place], [phone] COCAINE Negative Normal < 300 ng/mL [facility] Comment on above: Performed By: #### L 500.4050, L700.6800, L100.0100, L501.2450, L505.5000 ####[facility] [address] [place], [address] ECSTACY Negative Normal < 500 ng/mL [facility] Comment on above: Performed By: #### L 500.4050, L700.6800, L100.0100, L501.2450, L505.5000 ####[facility] [address] [place], [address] METHADONE Negative Normal < 300 ng/mL [facility] Comment on above: Performed By: #### L 500.4050, L700.6800, L100.0100, L501.2450, L505.5000 ####[facility] [address] [place], [address] OPIATES Positive Abnormal < 300 ng/mL [facility] Comment on above: Performed By: #### L 500.4050, L700.6800, L100.0100, L501.2450, L505.5000 ####[facility] [address] [place], [address] PCP Negative Normal < 25 ng/mL [facility] Comment on above: Performed By: #### L 500.4050, L700.6800, L100.0100, L501.2450, L505.5000 ####[facility] [address] [place], [address] THC Negative Normal < 50 ng/mL [facility] Comment on above: Performed By: #### L 500.4050, L700.6800, L100.0100, L501.2450, L505.5000 ####[facility] [address] [place], [place], [address] VISTA UDS PH 7 Normal [facility] Comment on above: Performed By: #### L 500.4050, L700.6800, L100.0100, L501.2450, L505.5000 ####[facility] [address] [place], [place], [address] Emergency Department Summary on 08-16-2024 Emergency Department Summary Normal [facility] Foot min 3 Viewson 5 Foot min 3 Views Normal [facility] Comprehensive metabolic 2000 panelon 08-08-2024 Albumin [Mass/Vol] 3.8 g/dL Low 3.9 - 4.9 g/dL [facility] ALP [Catalytic activity/Vol] 109 U/L 34 - 123 U/L [facility] ALT [Catalytic activity/Vol] 13 U/L 7 - 38 U/L [facility] Anion gap [Moles/Vol] 12 mmol/L 8 - 15 mmol/L [facility] AST [Catalytic activity/Vol] 16 U/L 13 - 35 U/L [facility] Bilirubin [Mass/Vol] 0.3 mg/dL 0.2 - 1.3 mg/dL [facility] Calcium [Mass/Vol] 9.3 mg/dL 8.5 - 10. 2 mg/dL [facility] Chloride [Moles/Vol] 104 mmol/L 98 - 107 mmol/L [facility] CO2 [Moles/Vol] 23 mmol/L 22 - 30 mmol/L [facility] Creatinine [Mass/Vol] 1.01 mg/dL High 0.58 - 0.96 mg/dL [facility] GFR/1.73 sq M.predicted among non-blacks MDRD (S/P/Bld) [Vol rate/Area] 72 mL/min/{1.73_m2} - PINF [facility] Comment on above: Estimated Glomerular Filtration Rate (eGFR) is calculated using the 2020 CKD-EPI creatinine equation. This equation utilizes serum creatinine, sex, and age as parameters. The creatinine assay has traceable calibration to isotope dilution-mass spectrometry. Refer to KDIGO guidelines for clinical interpretation. In patients with unstable renal function, e.g. those with acute kidney injury, the eGFR may not accurately reflect actual GFR. Glucose [Mass/Vol] 85 mg/dL 74 - 99 mg/dL [facility] Comment on above: The [place] Diabete s Association (ADA) provides guidance for cutoff values for fasting glucose and random glucose. The ADA defines fasting as no caloric intake for at least 8 hours. Fasting plasma glucose results between 100 to 125 mg/dL indicate increased risk for diabetes (prediabetes). Fasting plasma glucose results greater than or equal to 126 mg/dL meet the criteria for diagnosis of diabetes. In the absence of unequivocal hyperglycemia, results should be confirmed by repeat testing. In a patient with classic symptoms of hyperglycemia or hyperglycemic crisis, random plasma glucose results greater than or equal to 200 mg/dL meet the criteria for diagnosis of diabetes. Reference: Standards of Medical Care in Diabetes 2016, [place] [employer]. Diabetes Care. 2016.39(Suppl 1). Potassium [Moles/Vol] 4 mmol/L 3.7 - 5.1 mmol/L [facility] Protein [Mass/Vol] 8.1 g/dL High 6.3 - 8.0 g/dL [facility] Sodium [Moles/Vol] 139 mmol/L 136 - 144 mmol/L [facility] Urea nitrogen [Mass/Vol] 6 mg/dL Low 7 - 21 mg/dL [facility] Iron and Iron binding capaci ty panelon 08-08-2024 Iron [Mass/Vol] 19 ug/dL Low 41 - 186 ug/dL [facility] Iron binding capacity [Mass/Vol] 483 ug/dL High 232 - 386 ug/dL [facility] Iron/TIBC [Molar ratio] 3.9 % Low 15.0 - 57.0 % [facility] No Panel Informationon 08-08 Interpretation and review of laboratory results Abnormal [facility] CBC W Auto Differential pane l (Bld)on 08-07-2024 Basophils (Bld) [#/Vol] 0.06 10*3/uL [facility] Basophils/100 WBC (Bld) 1 % [facility] Differential cell count method Nom (Bld) Auto [facility] Eosinophils (Bld) [#/Vol] 0.19 10*3/uL [facility] Eosinophils/100 WBC (Bld) 3.3 % [facility] Erythrocyte distribution width (RBC) [Ratio] 19.2 % High 11.5 - 15.0 % [facility] Hematocrit (Bld) [Volume fraction] 31.5 % Low 36.0 - 46.0 % [facility] Hemoglobin (Bld) [Mass/Vol] 8.5 g/dL Low 11.5 - 15.5 g/dL [facility] Immature granulocytes (Bld) [#/Vol] 0.03 10*3/uL [facility] Immature granulocytes/100 WBC (Bld) 0.5 % [facility] Interpretation and review of laboratory results Abnormal [facility] Lymphocytes (Bld) [#/Vol] 1.04 10*3/uL [facility] Lymphocytes/100 WBC (Bld) 17.8 % [facility] MCH (RBC) [Entitic mass] 19.3 pg Low 26.0 - 34.0 pg [facility] MCHC (RBC) [Mass/Vol] 27 g/dL Low 30.5 - 36.0 g/dL [facility] MCV (RBC) [Entitic vol] 71.4 fL Low 80.0 - 100.0 fL [facility] Monocytes (Bld) [#/Vol] 0.4 10*3/uL [facility] Monocytes/100 WBC (Bld) 6.9 % [facility] Neutrophils (Bld) [#/Vol] 4.11 10*3/uL [facility] Neutrophils/100 WBC (Bld) 70.5 % [facility] Nucleated RBC (Bld) [#/Vol] NINF [facility] Nucleated RBC/100 WBC (Bld) [Ratio] 0 % /100 WBC [facility] Platelet mean volume (Bld) [Entitic vol] 9 fL 9.0 - 12.7 fL [facility] Platelets (Bld) [#/Vol] 602 10*3/uL High [facility] RBC (Bld) [#/Vol] 4.41 10*6/uL 3.90 - 5.2 0 m/uL [facility] WBC (Bld) [#/Vol] 5.83 10*3/uL [facility] HbA1c (Bld)on 08-07-2024 Average glucose Estimated from glycated hemoglobin (Bld) [Mass/Vol] 123 mg/dL [facility] Comment on above: eAG: (Estimated aver age glucose) is a calculated value from HgbA1c and is contact representative of the average blood glucose level in the last 2-3 month period. HbA1c (Bld) [Mass fraction] 5.9 % High 4.3 - 5.6 % [facility] Comment on above: [place] Diabetes As sociation guidelines indicate that patients with HgbA1c in the range 5.7-6.4% are at increased risk for development of diabetes, and intervention by lifestyle modification may be beneficial. HgbA1c greater or equal to 6.5% is considered diagnostic of diabetes. Interpretation and review of laboratory results Abnormal [facility] 12 Lead EKGon 07-30-2024 12 Lead EKG Normal [facility] Basic Metabolic Profile (BMP )on 07-30-2024 Potassium [Moles/Vol] 2.7 mmol/L Invalid Interpretation Code 3.5-5.1 [facility] Comment on above: Result Comment: RESU LTS CALLED TO NONI 07/30/241705 Jackelyn Draper.REPORT READ BACK BY . SAME AMENDED REPORT 07/30/241705 K previously reported as: 2.7 *L mmol/L Performed By: #### L 700.6800, L100.0100, L500.2500, L300.4310, L300.3900 ####[facility] [address] [place], [address] CBC W/Diff, Automatedon 02-0 3-2024 Absolute Lymph 1.10 X10 3/uL Normal 0.83-4.51 [facility] Comment on above: Performed By: #### L 700.6800, L100.0100, L500.2500, L300.4310, L300.3900 ####[facility] [address] [place], [address] Absolute Neut 8.0 X10 3/uL High 2.0-7.7 [facility] Comment on above: Performed By: #### L 700.6800, L100.0100, L500.2500, L300.4310, L300.3900 ####[facility] [address] [place], [address] Basophils/100 WBC (Bld) 0.6 % Normal 0-1 [facility] Comment on above: Performed By: #### L 700.6800, L100.0100, L500.2500, L300.4310, L300.3900 ####[facility] [address] [place], [address] Eosinophils/100 WBC (Bld) 1.6 % Normal 0-5 [facility] Comment on above: Performed By: #### L 700.6800, L100.0100, L500.2500, L300.4310, L300.3900 ####[facility] [address] [place], [address] Erythrocyte distribution width (RBC) [Ratio] 18.5 % High 11.6-14.6 [facility] Comment on above: Performed By: #### L 700.6800, L100.0100, L500.2500, L300.4310, L300.3900 ####[facility] [address] [place], [address] Hematocrit (Bld) [Volume fraction] 29.3 % Low 37-47 [facility] Comment on above: Performed By: #### L 700.6800, L100.0100, L500.2500, L300.4310, L300.3900 ####[facility] [address] [place], [address] Hemoglobin (Bld) [Mass/Vol] 8.3 g/dL Low 12.0-15.0 [facility] Comment on above: Performed By: #### L 700.6800, L100.0100, L500.2500, L300.4310, L300.3900 ####[facility] [address] [place], [address] IG% 0.400 Normal 0.0-0.9 [facility] Comment on above: Result Comment: IG% - Immature Granulocytes (promyelocytes, myelocytes andmetamyelocytes) > 1% indicates that a LEFT SHIFT is Present. Performed By: #### L 700.6800, L100.0100, L500.2500, L300.4310, L300.3900 ####[facility] [address] [place], [address] Lymphocytes/100 WBC (Bld) 11.0 % Low 19-41 [facility] Comment on above: Performed By: #### L 700.6800, L100.0100, L500.2500, L300.4310, L300.3900 ####[facility] [address] [place], [address] MCH (RBC) [Entitic mass] 19.6 pg Low 27.0-32.0 [facility] Comment on above: Performed By: #### L 700.6800, L100.0100, L500.2500, L300.4310, L300.3900 ####[facility] [address] [place], [address] MCHC (RBC) [Mass/Vol] 28.3 g/dL Low 32-36 [facility] Comment on above: Performed By: #### L 700.6800, L100.0100, L500.2500, L300.4310, L300.3900 ####[facility] [address] [place], [address] MCV (RBC) [Entitic vol] 69.1 fL Low 81-99 [facility] Comment on above: Performed By: #### L 700.6800, L100.0100, L500.2500, L300.4310, L300.3900 ####[facility] [address] [place], [address] Monocytes/100 WBC (Bld) 7.1 % Normal 0-10 [facility] Comment on above: Performed By: #### L 700.6800, L100.0100, L500.2500, L300.4310, L300.3900 ####[facility] [address] [place], [address] Neutrophils/100 WBC (Bld) 79.3 % High 47-70 [facility] Comment on above: Performed By: #### L 700.6800, L100.0100, L500.2500, L300.4310, L300.3900 ####[facility] [address] [place], [address] Nucleated RBC (Bld) [#/Vol] 0 10*3/uL Normal 0-5 [facility] Comment on above: Performed By: #### L 700.6800, L100.0100, L500.2500, L300.4310, L300.3900 ####[facility] [address] [place], [address] Platelet mean volume (Bld) [Entitic vol] 8.9 fL Normal 6.2-12.0 [facility] Comment on above: Performed By: #### L 700.6800, L100.0100, L500.2500, L300.4310, L300.3900 ####[facility] [address] [place], [address] Platelets (Bld) [#/Vol] 466 10*3/uL High 150-450 [facility] Comment on above: Performed By: #### L 700.6800, L100.0100, L500.2500, L300.4310, L300.3900 ####[facility] [address] [place], [address] RBC (Bld) [#/Vol] 4.24 10*6/uL Normal 4.2-5.[address] [facility] Comment on above: Performed By: #### L 700.6800, L100.0100, L500.2500, L300.4310, L300.3900 ####[facility] [address] [place], [address] RDW SD 45.1 fl High 35.1-43.9 [facility] Comment on above: Performed By: #### L 700.6800, L100.0100, L500.2500, L300.4310, L300.3900 ####[facility] [address] [place], [address] WBC (Bld) [#/Vol] 10.0 10*3/uL Normal 4.4-11.[address] [facility] Comment on above: Performed By: #### L 700.6800, L100.0100, L500.2500, L300.4310, L300.3900 ####[facility] [address] [place], [address] Chest 1 View (Portable)on Chest 1 View (Portable) Normal [facility] Emergency Department Summary on 07-30-2024 Emergency Department Summary Normal [facility] Ferritinon 07-30-2024 Ferritin [Mass/Vol] 11 ng/mL Normal 8-[address] [facility] Comment on above: Performed By: #### L 503.6030, L503.6550 ####[facility] [address] [place], [place], [id number] Iron+Iron Binding Capacityon 07-30-2024 Iron [Mass/Vol] 12 ug/dL Low 50-170 [facility] Comment on above: Performed By: #### L 503.6030, L503.6550 ####[facility] [address] [place], [address] IRON SATURATION 2.5 Low 15.0-55.0 [facility] Comment on above: Performed By: #### L 503.6030, L503.6550 ####[facility] [address] [place], [address] TIBC 480 ug/dL High 250-450 [facility] Comment on above: Performed By: #### L 503.6030, L503.6550 ####[facility] [address] [place], [address] Partial Thromboplast Timeon 07-30-2024 aPTT Coag (Bld) [Time] 28.8 s Normal 24.1-36.2 [facility] Comment on above: Performed By: #### L 700.6800, L100.0100, L500.2500, L300.4310, L300.3900 ####[facility] [address] [place], [place], [id number] ,Serum,hCG Quali.on 07-30-2024 HCG, SERUM QUAL Negative Normal [facility] Comment on above: Performed By: #### L 700.6800, L100.0100, L500.2500, L300.4310, L300.3900 ####[facility] [address] [place], [address] Prothrombin Time w/INRon INR Coag (PPP) [Relative time] 1.1 {INR} Normal [facility] Comment on above: Performed By: #### L 700.6800, L100.0100, L500.2500, L300.4310, L300.3900 ####[facility] [address] [place], [place], [id number] PT Coag (PPP) [Time] 14.0 s Normal 11.7-14.9 [facility] Comment on above: Performed By: #### L 700.6800, L100.0100, L500.2500, L300.4310, L300.3900 ####[facility] [address] 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 - OLANZapine (ZYPREXA) 15 mg tablet Take 1 tablet by mouth daily at bedtime. - escitalopram oxalate (LEXAPRO) 20 mg tablet Take 1 tablet by mouth once daily. - traZODone (DESYREL) 100 mg tablet Take 2 tablets by mouth daily at bedtime. - prazosin (MINIPRESS) 2 mg cap Take 1 capsule by mouth daily at bedtime. - norgestimate 0.25 mg-ethinyl estradiol 35 mcg (SPRINTEC) 0.25-35 mg-mcg per tablet Take 1 tablet by mouth once daily. Okay to skip placebo week and start on next package - omeprazole (PRILOSEC) 40 mg capsule Take 1 capsule by mouth once daily. - ibuprofen (MOTRIN) 800 mg tablet Take 1 tablet by mouth every 8 hours as needed for pain. Take with food. - ferrous gluconate 324 mg (37.5 mg iron) tablet Take 1 tablet by mouth twice daily with meals. - Ascorbic Acid (VITAMIN C) 1,000 mg tablet Take 1 tablet by mouth once daily. - diclofenac (VOLTAREN ARTHRITIS PAIN) 1 % topical gel Apply 2 g to affected area twice daily as needed (joint pain hand or knee). - Cholecalciferol, Vitamin D3, (VITAMIN D-3) 50 mcg (2,000 unit) cap Take 1 capsule by mouth once daily. Problem List As Of Date 10/18/2022 Noted Resolved SLEEP DISTURBANCES [780.5] 10/12/2006 Adjustment disorder with depressed mood [F43.21]10/12/2006 Anxiety state [F41.1] 10/12/2006 CARPAL TUNNEL SYNDROME [G56.00] 10/12/2006 Obesity (BMI 30-39.9) [E66.9] 10/29/2015 Vitamin D deficiency [E55.9] 10/29/2015 Iron deficiency [E61.1] 10/29/2015 Methamphetamine abuse (HCC) [F15.10] 11/22/2017 03/20/2019 Panic disorder without agoraphobia [F41.0] 03/08/2022 Bipolar 2 disorder (HCC) [F31.81] 03/08/2022 Encounter Status:Closed by SHANDRA OKEEFE on 10/18/22 [facility] 10-01-2022 JUANYN Telephone (MMPRPO) DALY EVANS ( ) 1985 F T Date Time Provider Department 10/01/22 SHANDRA OKEEFE MMPRPO During your visit today, we recorded the following information about you: Shandra Okeefe RN 10/01/2022 12:20 PM Signed Faxed PA and associated clinicals to [facility] today at 1214. 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 - OLANZapine (ZYPREXA) 15 mg tablet Take 1 tablet by mouth daily at bedtime. - escitalopram oxalate (LEXAPRO) 20 mg tablet Take 1 tablet by mouth once daily. - traZODone (DESYREL) 100 mg tablet Take 2 tablets by mouth daily at bedtime. - prazosin (MINIPRESS) 2 mg cap Take 1 capsule by mouth daily at bedtime. - norgestimate 0.25 mg-ethinyl estradiol 35 mcg (SPRINTEC) 0.25-35 mg-mcg per tablet Take 1 tablet by mouth once daily. Okay to skip placebo week and start on next package - omeprazole (PRILOSEC) 40 mg capsule Take 1 capsule by mouth once daily. - ibuprofen (MOTRIN) 800 mg tablet Take 1 tablet by mouth every 8 hours as needed for pain. Take with food. - ferrous gluconate 324 mg (37.5 mg iron) tablet Take 1 tablet by mouth twice daily with meals. - Ascorbic Acid (VITAMIN C) 1,000 mg tablet Take 1 tablet by mouth once daily. - diclofenac (VOLTAREN ARTHRITIS PAIN) 1 % topical gel Apply 2 g to affected area twice daily as needed (joint pain hand or knee). - Cholecalciferol, Vitamin D3, (VITAMIN D-3) 50 mcg (2,000 unit) cap Take 1 capsule by mouth once daily. Problem List As Of Date 10/01/2022 Noted Resolved SLEEP DISTURBANCES [780.5] 10/12/2006 Adjustment disorder with depressed mood [F43.21]10/12/2006 Anxiety state [F41.1] 10/12/2006 CARPAL TUNNEL SYNDROME [G56.00] 10/12/2006 Obesity (BMI 30-39.9) [E66.9] 10/29/2015 Vitamin D deficiency [E55.9] 10/29/2015 Iron deficiency [E61.1] 10/29/2015 Methamphetamine abuse (HCC) [F15.10] 11/22/2017 03/20/2019 Panic disorder without agoraphobia [F41.0] 03/08/2022 Bipolar 2 disorder (HCC) [F31.81] 03/08/2022 Encounter Status:Closed by SHANDRA OKEEFE on 10/01/22 [facility] CNPN Telephone (MMPRPO) MAYANKRDALY ([id number]) 1985 F T Date Time Provider Department 10/01/22 SHANDRA OKEEFE MMPRPO During your visit today, we recorded the following information about you: Shandra Okeefe RN 10/22/2022 9:51 AM Addendum Faxed TRACEE and associated clinicals to [facility] today at 1219. 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 - traZODone (DESYREL) 100 mg tablet Take 2 tablets by mouth daily at bedtime. - prazosin (MINIPRESS) 2 mg cap Take 1 capsule by mouth daily at bedtime. - lamoTRIgine (LAMICTAL) 150 mg tablet Take 1 tablet by mouth once daily. - OLANZapine (ZYPREXA) 20 mg tablet Take 1 tablet by mouth daily at bedtime. - norgestimate 0.25 mg-ethinyl estradiol 35 mcg (SPRINTEC) 0.25-35 mg-mcg per tablet Take 1 tablet by mouth once daily. Okay to skip placebo week and start on next package - omeprazole (PRILOSEC) 40 mg capsule Take 1 capsule by mouth once daily. - ibuprofen (MOTRIN) 800 mg tablet Take 1 tablet by mouth every 8 hours as needed for pain. Take with food. - ferrous gluconate 324 mg (37.5 mg iron) tablet Take 1 tablet by mouth twice daily with meals. - Ascorbic Acid (VITAMIN C) 1,000 mg tablet Take 1 tablet by mouth once daily. - diclofenac (VOLTAREN ARTHRITIS PAIN) 1 % topical gel Apply 2 g to affected area twice daily as needed (joint pain hand or knee). - Cholecalciferol, Vitamin D3, (VITAMIN D-3) 50 mcg (2,000 unit) cap Take 1 capsule by mouth once daily. Problem List As Of Date 10/01/2022 Noted Resolved SLEEP DISTURBANCES [780.5] 10/12/2006 Adjustment disorder with depressed mood [F43.21]10/12/2006 Anxiety state [F41.1] 10/12/2006 CARPAL TUNNEL SYNDROME [G56.00] 10/12/2006 Obesity (BMI 30-39.9) [E66.9] 10/29/2015 Vitamin D deficiency [E55.9] 10/29/2015 Iron deficiency [E61.1] 10/29/2015 Methamphetamine abuse (HCC) [F15.10] 11/22/2017 03/20/2019 Panic disorder without agoraphobia [F41.0] 03/08/2022 Bipolar 2 disorder (HCC) [F31.81] 03/08/2022 Encounter Status:Closed by SHANDRA OKEEFE on 10/01/22 [facility] Office Visit (PSYRL) LOVER,DALY Estrella ([id number]) 1985 F T Date Time Provider Department 09/30/22 10:00 AM ESA VELÁSQUEZ During your visit today, we recorded the following information about you: ESA VELÁSQUEZ APRN.MANAGER CLINICAL RESEARCH 09/30/2022 11:54 AM Signed PSYCHIATRY ELECTROCONVULSIVE THERAPY INITIAL EVALUATION Patient was seen in person for an initial evaluation. All information is from patient report except when noted. This evaluation is NOT intended for forensic, disability or child custody purposes. AGE: [age] year old RACE: White REFERRAL SOURCE: Psychiatrist - Clayton Granados CNP ([facility]). Last visit 08/16/22 CHIEF COMPLAINT: Treatment resistant depression. HPI: Daly is a 37 year old female with a history of Bipolar depression (Bipolar II), ELIJAH.Referred to clinic by psych provider for evaluation for ECT. Current medications are: Lamotrigine 150mg BID; Trazodone 200mg QHS; Zyprexa 10mg QHS; Lexapro 20mg, Prazosin 2mg QHS SOCIAL HISTORY: Patient is the youngest of 2 children. The patient was born and raised in [place]. The patient completed Some college. The patient described their childhood as 'ideal'. The patient lives with a roommate in an house (owned by roommate). Feels safe. No guns The patient has 1 child (10yrs). Shared custody with father. 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 No disability. Service: None Legal: 18 - 2 charges of drug trafficking. No halfway time. No DUI/TRAVON Trauma/Abuse: Denies Psychosocial Supports: Mom, father of son. FAMILY PSYCHIATRIC HISTORY: The patient has the following family members with a history of mental illness: Brother - aspergers; Mother- Depression; Father-Bipolar The patient has the following family members with a history of addiction: Brother, father, grandfather The patient has the following family members with a history of completed suicide: None SUBSTANCE USE HISTORY: Nicotine: Vape pen 'about [...] of use or dependence Past/Current treatments: N/A PSYCHIATRIC HISTORY: Length of current depressive episode: 'It's been continuous for years' Age at first depressive episode: Unsure Lifetime # of depressive episodes: Multiple Last Hospitalization: 1) SA via OD on Rx psych meds in 2017 2) 2017 @ [facility] for SI (pink slipped from crisis line) 3) 2021 - [place] for SI # of past suicide attempts and methods used:OD in 2017 Intensive outpatient program: 2018 at [facility] - didn't think it was helpful Residential treatment: Denies Prior Diagnosis: Anxiety Disorder, Bipolar Affective Disorder, Borderline Personality Disorder, and Panic Disorder Prior Provider: Followed by PCP Fredrick Boland. Referred to current psych provider. Therapist: Followed at [facility] (practice) by Evans. Monthly check-in Past psychotherapy experience: Extensive Current Dynamic Etching Processor: None Electroconvulsive therapy (ECT): Denies Transcranial magnetic stimulation (TMS): Denies Vagal Nerve Stimulator (VNS): Denies Ketamine: Denies Esketamine: Denies Has patient been offered an MAOI previously? Denies If patient has not been on MAOI and has been offered one, what is the reason or concern for not initiating? 'I've tried so many medications, I want to try something different.' Current Outpatient Medications Medication Sig Dispense Refill [...] skip placebo week and start on next (more content not included)... [facility] HISTORY PHYSICALon 3 HISTORY PHYSICAL HNO ID: [id number] Author: Esa Velásquez APRN.MANAGER CLINICAL RESEARCH Service: ? Author Type: Nurse Practitioner Type: HANDP Filed: 09/30/2022 11:54 AM Note Text: Summary: TRD Initial Evaluation PSYCHIATRY ELECTROCONVULSIVE THERAPY INITIAL EVALUATION Patient was seen in person for an initial evaluation. All information is from patient report except when noted. This evaluation is NOT intended for forensic, disability or child custody purposes. AGE: [age] year old RACE: White REFERRAL SOURCE: Psychiatrist - Clayton Granados CNP ([facility]). Last visit 08/16/22 CHIEF COMPLAINT: Treatment resistant depression. HPI: Daly is a 37 year old female with a history of Bipolar depression (Bipolar II), ELIJAH.Referred to clinic by psych provider for evaluation for ECT. Current medications are: Lamotrigine 150mg BID; Trazodone 200mg QHS; Zyprexa 10mg QHS; Lexapro 20mg, Prazosin 2mg QHS SOCIAL HISTORY: Patient is the youngest of 2 children. The patient was born and raised in [place]. The patient completed Some college. The patient described their childhood as 'ideal'. The patient lives with a roommate in an house (owned by roommate). Feels safe. No guns The patient has 1 child (10yrs). Shared custody with father. 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 No disability. Service: None Legal: 18 - 2 charges of drug trafficking. No halfway time. No DUI/TRAVON Trauma/Abuse: Denies Psychosocial Supports: Mom, father of son. FAMILY PSYCHIATRIC HISTORY: The patient has the following family members with a history of mental illness: Brother - aspergers; Mother- Depression; Father-Bipolar The patient has the following family members with a history of addiction: Brother, father, grandfather The patient has the following family members with a history of completed suicide: None SUBSTANCE USE HISTORY: Nicotine: Vape pen 'about [...] of use or dependence Past/Current treatments: N/A PSYCHIATRIC HISTORY: Length of current depressive episode: 'It's been continuous for years' Age at first depressive episode: Unsure Lifetime # of depressive episodes: Multiple Last Hospitalization: 1) [place] via OD on Rx psych meds in 2017 2) 2017 @ [facility] for SI (pink slipped from crisis line) 3) 2021 - [facility] for SI # of past suicide attempts and methods used:OD in 2017 Intensive outpatient program: 2018 at [facility] - didn't think it was helpful Residential treatment: Denies Prior Diagnosis: Anxiety Disorder, Bipolar Affective Disorder, Borderline Personality Disorder, and Panic Disorder Prior Provider: Followed by PCP Fredrick Boland. Referred to current psych provider. Therapist: Followed at [facility] (practice) by Evans. Monthly check-in Past psychotherapy experience: Extensive Current Dynamic Etching Processor: None Electroconvulsive therapy (ECT): Denies Transcranial magnetic stimulation (TMS): Denies Vagal Nerve Stimulator (VNS): Denies Ketamine: Denies Esketamine: Denies Has patient been offered an MAOI previously? Denies If patient has not been on MAOI and has been offered one, what is the reason or concern for not initiating? 'I've tried so many medications, I want to try something different.' Current Outpatient Medications Medication Sig Dispense Refill [...] daily. Okay to skip placebo week and st (more content not included)... [facility] Telephone (PSYRL) DALY EVANS ([id number]) [address] [facility] Date Time Provider Department 08/24/22 ARIELLA CORTES PSDAPHNEY During your visit today, we recorded the following information about you: Ariella Cortes RN 08/24/2022 1:42 PM Signed INTERNAL ([facility]) ECT Referral Received: 08/18/22 - scanned into [email or web address] From: Clayton Granados @ [facility] ECT Eval: TBD Left voicemail requesting callback in ECT office at [phone] to schedule ECT eval. Awaiting patient response. Ariella Cortes RN 08/30/2022 12:24 PM Addendum Scheduled ECT Eval scheduled on 09/30/22 @ 10am with Esa Velásquez Patient encouraged to contact RN Chief Drafter at [phone] should any questions or concerns arise between now and then. Ariella Cortes RN 09/30/2022 3:22 PM Signed Patient to receive ECT and related care @ [facility]. MM ECT RN notified AND aware. INTERNAL ([facility]) ECT Referral Received: 08/18/22 - scanned into [facility] From: Clayton Granados @ [facility] ECT Eval: 09/30/22 with Esa Velásquez ECT Recommendations: Acute series of ECT x 12. ECT Consent Completed: Yes: Date: 09/30/22 Labs Completed: Yes - BMP, UTOX, HCG, ETG Per Dr. Jean Baptiste - start patient with RUL-ub series. Allergies As of Date: 08/24/2022 (No Known Allergies) Date Reviewed: 08/16/2022 Reviewed by: Cassy Chicas LPN - Fully Assessed Reason for Visit: ECT Referral [4169] Prescriptions as of 10/01/2022 - lamoTRIgine (LAMICTAL) 150 mg tablet Take 1 tablet by mouth once daily. - OLANZapine (ZYPREXA) 15 mg tablet Take 1 tablet by mouth daily at bedtime. - escitalopram oxalate (LEXAPRO) 20 mg tablet Take 1 tablet by mouth once daily. - traZODone (DESYREL) 100 mg tablet Take 2 tablets by mouth daily at bedtime. - prazosin (MINIPRESS) 2 mg cap Take 1 capsule by mouth daily at bedtime. - norgestimate 0.25 mg-ethinyl estradiol 35 mcg (SPRINTEC) 0.25-35 mg-mcg per tablet Take 1 tablet by mouth once daily. Okay to skip placebo week and start on next package - omeprazole (PRILOSEC) 40 mg capsule Take 1 capsule by mouth once daily. - ibuprofen (MOTRIN) 800 mg tablet Take 1 tablet by mouth every 8 hours as needed for pain. Take with food. - ferrous gluconate 324 mg (37.5 mg iron) tablet Take 1 tablet by mouth twice daily with meals. - Ascorbic Acid (VITAMIN C) 1,000 mg tablet Take 1 tablet by mouth once daily. - diclofenac (VOLTAREN ARTHRITIS PAIN) 1 % topical gel Apply 2 g to affected area twice daily as needed (joint pain hand or knee). - Cholecalciferol, Vitamin D3, (VITAMIN D-3) 50 mcg (2,000 unit) cap Take 1 capsule by mouth once daily. Problem List As Of Date 08/24/2022 Noted Resolved SLEEP DISTURBANCES [780.5] 10/12/2006 Adjustment disorder with depressed mood [F43.21]10/12/2006 Anxiety state [F41.1] 10/12/2006 CARPAL TUNNEL SYNDROME [G56.00] 10/12/2006 Obesity (BMI 30-39.9) [E66.9] 10/29/2015 Vitamin D deficiency [E55.9] 10/29/2015 Iron deficiency [E61.1] 10/29/2015 Methamphetamine abuse (HCC) [F15.10] 11/22/2017 03/20/2019 Panic disorder without agoraphobia [F41.0] 03/08/2022 Bipolar 2 disorder (HCC) [F31.81] 03/08/2022 Encounter Status:Closed by ARIELLA CORTES on 08/24/22 [facility] TOX SCREEN ROUT URon 022 Amphetamines Confirm (U) [Mass/Vol] Negative Negative [facility] Barbiturates Urine Negative Negative [facility] Benzodiazepines Urine Negative Negative [facility] Cannabinoids, Urine Positive Abnormal Negative Julien [facility] Cocaine Ql (U) Negative Negative [facility] Ethanol (U) [Mass/Vol] <11 mg/dL [facility] Opiates Screen Ql (U) Negative Negative [facility] oxyCODONE cutoff Screen (U) [Mass/Vol] Negative Negative [facility] Phencyclidine Ql (U) Negative Negative [facility] HEP B SURFACE ANTIGENon 04-28 HEP B SURFACE ANTIGEN Non-Reactive [facility] Comment on above: Result Comment: NONR EACTIVE - NEGATIVE FOR HEPATITIS B SURFACE ANTIGEN Performed By: #### H BSAG, HCVAB, HIV #### [address] [address] HEPATITIS C ABon 05-25-2021 HEPATITIS C AB Non-Reactive Normal [facility] Comment on above: Result Comment: NONR EACTIVE - <0.80 INDEX IS CONSIDERED NEGATIVE FOR IGG ANTIBODIES TO HCV. Performed By: #### M N, ALC #### [address] [address] HIV AG/AB COMBOon 05-25-2021 HIV AG/AB COMBO Non-Reactive Normal [facility] Comment on above: Result Comment: NONR EACTIVE - NEGATIVE FOR ANTIBODIES TO HIV-1 AND HIV-2 AND p24 ANTIGEN. Performed By: #### M N, ALC #### [address] [address] ALCOHOLon 05-21-2021 Ethanol [Mass/Vol] 169.0 mg/dL Normal [facility] Comment on above: Result Comment: < 3 mg/dl NONE DETECTED 50-100 mg/dl MAY SHOW SIGNS OF INTOXICATION 300-500 mg/dl COMATOSE LEVEL Performed By: #### M N, ALC #### [address] [address] CBC with AUTO DIFFon 021 BAS0 % 0.30 % Normal 0-2 [facility] Comment on above: Performed By: #### C BC, DIFF (MANUAL) #### [address] [address] Basophils (Bld) [#/Vol] 0.0 10*3/uL Normal 0-0.1 [facility] Comment on above: Performed By: #### C BC, DIFF (MANUAL) #### [address] [address] Eosinophils (Bld) [#/Vol] 0.0 10*3/uL Normal 0.0-1.80 [facility] Comment on above: Performed By: #### C BC, DIFF (MANUAL) #### [address] [address] Eosinophils/100 WBC (Bld) 0.1 % Normal 0-8 [facility] Comment on above: Performed By: #### C BC, DIFF (MANUAL) #### [address] [address] GRAN # 11.7 K/uL High 2.2-9.1 [facility] Comment on above: Performed By: #### C BC, DIFF (MANUAL) #### [facility] [address] [place] [address] GRAN % 79.6 % Normal 42-80 [facility] Comment on above: Performed By: #### C BC, DIFF (MANUAL) #### [address] [place] [address] Hematocrit (Bld) [Volume fraction] 42.0 % Normal 37.0-47.0 [facility] Comment on above: Performed By: #### C BC, DIFF (MANUAL) #### [address] [place] [address] Hemoglobin (Bld) [Mass/Vol] 14.3 g/dL Normal 12.0-16.0 [facility] Comment on above: Performed By: #### C BC, DIFF (MANUAL) #### [address] [place] [address] Lymphocytes (Bld) [#/Vol] 2.2 10*3/uL Normal 1.0-4.0 [facility] Comment on above: Performed By: #### C BC, DIFF (MANUAL) #### [address] [place] [address] Lymphocytes/100 WBC (Bld) 15.1 % Low 16-48 [facility] Comment on above: Performed By: #### C BC, DIFF (MANUAL) #### [address] [place] [address] MCV (RBC) [Entitic vol] 93.2 fL Normal 80-97 [facility] Comment on above: Performed By: #### C BC, DIFF (MANUAL) #### [address] [place] [address] MEAN CORPUSCULAR HGB 31.8 pg Normal 26.0-32.0 [facility] Comment on above: Performed By: #### C BC, DIFF (MANUAL) #### [facility] [address] [place] [address] MEAN CORPUSCULAR HGB CONC 34.1 g/dL Normal 31.0-36.0 [facility] Comment on above: Performed By: #### C BC, DIFF (MANUAL) #### [address] [place] [address] Monocytes (Bld) [#/Vol] 0.7 10*3/uL Normal 0.1-1.7 [facility] Comment on above: Performed By: #### C BC, DIFF (MANUAL) #### [facility] [address] [place] [address] Monocytes/100 WBC (Bld) 4.9 % Normal 3-9 [facility] Comment on above: Performed By: #### C BC, DIFF (MANUAL) #### [facility] [address] [place] [address] Platelet mean volume (Bld) [Entitic vol] 6.9 fL Normal 6.6-10.5 [facility] Comment on above: Performed By: #### C BC, DIFF (MANUAL) #### [address] [place] [address] Platelets (Bld) [#/Vol] 418 10*3/uL Normal 140-450 [facility] Comment on above: Performed By: #### C BC, DIFF (MANUAL) #### [address] [place] [address] RBC (Bld) [#/Vol] 4.51 10*6/uL Normal 4.20-5.50 [facility] Comment on above: Performed By: #### C BC, DIFF (MANUAL) #### [address] [place] [address] RED CELL DISTRI WIDTH 13.0 % Normal 11.0-15.5 [facility] Comment on above: Performed By: #### C BC, DIFF (MANUAL) #### [address] [place] [address] WBC (Bld) [#/Vol] 14.7 10*3/uL High 4.0-11.0 [facility] Comment on above: Performed By: #### C BC, DIFF (MANUAL) #### [facility] [address] [place] [address] COMPREHENSIVE METABOLIC PANE Derick 05-21-2021 Albumin [Mass/Vol] 3.5 g/dL Normal 3.4-5.0 [facility] Comment on above: Performed By: #### M N, ALC #### [address] [place] [address] Albumin/Globulin [Mass ratio] 0.9 {ratio} Low 1.1-1.8 [facility] Comment on above: Performed By: #### M N, ALC #### [facility] [address] [place] [address] ALP [Catalytic activity/Vol] 64 U/L Normal 45-117 [facility] Comment on above: Performed By: #### M N, ALC #### [facility] [address] [place] [address] ALT [Catalytic activity/Vol] 29 U/L Normal 12-78 [facility] Comment on above: Performed By: #### M N, ALC #### [facility] [address] [place] [address] Anion gap [Moles/Vol] 9.0 mmol/L Low 11-23 [facility] Comment on above: Performed By: #### M N, ALC #### [facility] [address] [place] [address] AST [Catalytic activity/Vol] 20 U/L Normal 15-37 [facility] Comment on above: Performed By: #### M N, ALC #### [facility] [address] [place] [address] Bilirubin [Mass/Vol] 0.3 mg/dL Normal 0.2-1.0 [facility] Comment on above: Performed By: #### M N, ALC #### [facility] [address] [place] [address] Calcium [Mass/Vol] 8.5 mg/dL Normal 8.5-10.1 [facility] Comment on above: Performed By: #### M N, ALC #### [facility] [address] [place] [address] Chloride [Moles/Vol] 107 mmol/L Normal 98-107 [facility] Comment on above: Performed By: #### M N, ALC #### [facility] [address] [place] [address] CO2 [Moles/Vol] 27.0 mmol/L Normal 21-32 [facility] Comment on above: Performed By: #### M N, ALC #### [facility] [address] [place] [address] Creatinine [Mass/Vol] 0.80 mg/dL Normal 0.55-1.02 [facility] Comment on above: Performed By: #### M N, ALC #### [facility] [address] [place] [address] GFR > 60.0 Normal [facility] Comment on above: Performed By: #### M N, ALC #### [facility] [address] [place] [address] GFR AM > 60.0 Normal [facility] Comment on above: Result Comment: THE NORMAL LEVEL OF GFR VARIES ACCORDING TO AGE, SEX, AND BODY SIZE. A GFR LEVEL OF LESS THAN 60 ML/MIN REPRESENTS LOSS OF THE ADULT LEVEL OF NORMAL KIDNEY FUNCTION. Performed By: #### M N, ALC #### [facility] [address] [place] [address] Globulin (S) [Mass/Vol] 4.2 g/dL Normal 2.5-4.6 [facility] Comment on above: Performed By: #### M N, ALC #### [address] [address] Glucose [Mass/Vol] 114 mg/dL High 70-100 [facility] Comment on above: Performed By: #### M N, ALC #### [address] [address] Potassium [Moles/Vol] 3.3 mmol/L Low 3.5-5.1 [facility] Comment on above: Performed By: #### M N, ALC #### [address] [place] [address] Protein [Mass/Vol] 7.7 g/dL Normal 6.0-8.3 [facility] Comment on above: Performed By: #### M N, ALC #### [address] [place] [address] Sodium [Moles/Vol] 140 mmol/L Normal 136-145 [facility] Comment on above: Performed By: #### M N, ALC #### [address] [place] [address] Urea nitrogen [Mass/Vol] 6.0 mg/dL Low 7-18 [facility] Comment on above: Performed By: #### M N, ALC #### [facility] [address] [place] [address] CPKon 05-21-2021 CPK 359 U/L High 26-192 [facility] Comment on above: Performed By: #### C PK #### [facility] [address] [place] [address] DIFFERENTIALon 05-21-2021 IMMATURE GRANS NONE SEEN Normal [facility] Comment on above: Performed By: #### C BC, DIFF (MANUAL) #### [facility] [address] [place] [address] PLATELET ESTIMATE NORMAL Normal [facility] Comment on above: Performed By: #### C BC, DIFF (MANUAL) #### [facility] [address] [place] [address] RBC morphology finding Nom (Bld) ESSENTIALLY NORMAL Normal [facility] Comment on above: Performed By: #### C BC, DIFF (MANUAL) #### [facility] [address] [place] [address] Band form neutrophils/100 WBC (Bld) 6 % Normal 0-10 [facility] Comment on above: Performed By: #### C BC, DIFF (MANUAL) #### [facility] [address] [place] [address] Eosinophils/100 WBC (Bld) 1 % Normal 0-8 [facility] Comment on above: Performed By: #### C BC, DIFF (MANUAL) #### [address] [place] [address] Lymphocytes/100 WBC (Bld) 11 % Low 16-48 [facility] Comment on above: Performed By: #### C BC, DIFF (MANUAL) #### [address] [place] [address] Monocytes/100 WBC (Bld) 6 % Normal 3-9 [facility] Comment on above: Performed By: #### C BC, DIFF (MANUAL) #### [address] [place] [address] Neutrophils/100 WBC (Bld) 76 % Normal 42-80 [facility] Comment on above: Performed By: #### C BC, DIFF (MANUAL) #### [address] [place] [address] TOTAL CELLS COUNTED 100 #CELLS Normal [facility] Comment on above: Performed By: #### C BC, DIFF (MANUAL) #### [address] [place] [address] ED.PDOCon 05-21-2021 ED.PDOC DALY EVANS [id number] Attending provider: [facility] [id number] Bebeto Tafoya 1985 35 DOS: 05/21/21 Hx/Exam - History of Present Illness Location: Last p.m. Episode Frequency: 1 episode Symptoms Worse with: Patient found intoxicated boyfriend's house, Arrested by [employer] Sxs/Pertinent Hx: Patient became aggressive banging head on car door Patient/Family Denies: No LOC but bleeding from wound physically aggressive,Questionable suicidal - Review of Systems All Other Systems: Pertinent Positives in HPI, All Other Systems Negative Unable to obtain ROS due to: Altered Mental Status, Intoxication, Poor Historian Respiratory: Denies: Shortness of Breath Cardiovascular: Denies: Chest Pain Gastrointestinal: Denies: Abdominal Pain Psychiatric: Other - Physical Exam General Appearance: awake, alert Eyes: conjunctivae clear Head, Ears, Nose, and Throat: mucous membranes moist Neck: no bony tenderness, full ROM Respiratory: no respiratory distress, no accessory muscle use Cardiovascular: regular rate, rhythm Abdomen/GI: non tender, soft Back: normal ROM Extremity: normal range of motion Neurologic: slurred speech Psychiatric: clinically intoxicated Skin Exam: warm/dry, other (3 cm laceration of forehead) - Source of History Source of History: Nursing Notes/Vital Signs/Triage Reviewed and Agree - Past Medical History ED PMH: Yes Depression - Social History Smoking Status: Current every day smoker Hx Alcohol Use: Yes - History of Present Illness Chief Complaint: SUICIDAL IDEATION Note(s) - Physician Notes Additional Notes, See Orders for Details: 05/21/21 06:57 Patient was apparently intoxicated or under the influence when police were called and she was found outside boyfriend's house without a shirt. She confronted police officers and became aggressive and was detained and arrested. While in the police vehicle she slammed her head against the post causing a laceration to her forehead and proclaim suicidal ideation. She arrived here combative and in handcuffs. We are able to remove the handcuffs but did have to give her Ativan to help her calm down. Were able to repair the laceration on her forehead with Dermabond. She has been resting quietly since and will reevaluate in the morning . Her alcohol level is normal however amphetamines are positive. I will endorse the case to the a.m. doctor for reevaluation which patient awakes and is eaten. To determine if she is homicidal or suicidal 05/21/21 06:56 (Bebeto Tafoya) 05/21/21 09:51 DALY EVANS Female [id number] Ordering physician: Yohana Bennett LOC:ER [id number] Attending physician: 1985 35 DO S: 05/21/21 Acc#: [id number] Exam/Proc: HEAD W/O CONTRAST Dept: COMPUTED TOMOGRAPHY EXAMINATION: CT OF THE HEAD WITHOUT AFCIIQCQ17/25/2021 8:[address] HEAD/BRAIN WITHOUT CONTRAST COMPARISON: No direct comparison available HISTORY: ORDERING SYSTEM PROVIDED HISTORY: TECHNOLOGIST PROVIDED HISTORY: Reason for Exam: head injury TECHNIQUE: Non-contrast CT head performed according to protocol. Multiplanar reconstructions performed. This exam was performed according to our departmental dose optimization program, and includes the following measures where applicable: automated exposure control, adjustment of the mAs and/or kVp according to patient size and/or exam, and an iterative reconstruction algorithm. FINDINGS: Motion artifact limits evaluation at level of skull base. X2 subcutaneous small to moderate-sized regions of soft tissue swelling with possible tiny hematoma and overlying laceration. No evidence for radiopaque foreign body at level of injury. There is no gross intracranial hemorrhage, midline shift, or mass effect . No evidence for major vessel acute ischemic change. No acute osseous abnormality. Included portions of the globes, retrobulbar soft tissue, paranasal sinuses, mastoid air cells, and middle ears are normal in appearance. IMPRESSION: Subcutaneous frontal soft tissue injury. No acute intracranial process demonstrated. CT head exam limited for evaluation for subtle acute ischemic process. Electronically signed By Sam Walton DO 05/21/2021 8:33:15 AM EST Workstation ID : [id number] REPORT SIGNATURE ON FILE Electronically Signed Date/Time: 05/21/21832 Dictated Date/time: 05/21/2182905/21/21 16:39 Patient has been sitting bed comfortable.She is being screened by crisis.At this time awaiting recommendations. Will sign patient out to p.m. physician (Yohana Bennett) 05/21/21 17:36 Patient assessed by crisis. They have asked for a pink slip on the patient based on presentation. I read through police report and notes to this point. [place] slip written based on patient self-harm, statement of wanti (more content not included)... Normal [facility] HCG URINEon 05-21-2021 Beta HCG ( test) Ql (U) Negative [facility] Comment on above: Order Comment: What Is Urine Source? Clean [place] Performed By: #### H CGUR #### [address] [address] HEAD W/O CONTRASTon 05-21-20 21 HEAD W/O CONTRAST DALY EVANS [id number] Ordering physician: Yohana Bennett LOC:ER [id number] Attending physician: [id number] 35 DO S: 05/21/21 Acc#: [id number] Exam/Proc: HEAD W/O CONTRAST Dept: COMPUTED TOMOGRAPHY EXAMINATION: CT OF THE HEAD WITHOUT JNSZWWDX86/25/2021 8:[address] HEAD/BRAIN WITHOUT CONTRAST COMPARISON: No direct comparison available HISTORY: ORDERING SYSTEM PROVIDED HISTORY: TECHNOLOGIST PROVIDED HISTORY: Reason for Exam: head injury TECHNIQUE: Non-contrast CT head performed according to protocol. Multiplanar reconstructions performed. This exam was performed according to our departmental dose optimization program, and includes the following measures where applicable: automated exposure control, adjustment of the mAs and/or kVp according to patient size and/or exam, and an iterative reconstruction algorithm. FINDINGS: Motion artifact limits evaluation at level of skull base. X2 subcutaneous small to moderate-sized regions of soft tissue swelling with possible tiny hematoma and overlying laceration. No evidence for radiopaque foreign body at level of injury. There is no gross intracranial hemorrhage, midline shift, or mass effect . No evidence for major vessel acute ischemic change. No acute osseous abnormality. Included portions of the globes, retrobulbar soft tissue, paranasal sinuses, mastoid air cells, and middle ears are normal in appearance. IMPRESSION: Subcutaneous frontal soft tissue injury. No acute intracranial process demonstrated. CT head exam limited for evaluation for subtle acute ischemic process. Electronically signed By Sam Walton DO 05/21/2021 8:33:15 AM EST Workstation ID : [id number] REPORT SIGNATURE ON FILE Electronically Signed Date/Time: 05/21/21832 Dictated Date/time: 05/21/21829 CC: Normal [facility] URINE DRUG SCREENon 05-21-20 21 AMPHETAMINES Positive Abnormal [facility] Comment on above: Order Comment: What Is Urine Source? Random Performed By: #### U DRGS #### [address] [address] Other Comment: URINE DRUG SCREENS ARE FOR MEDICAL PURPOSES ONLY. THIS TEST PROVIDES ONLY A PRELIMINARY TEST RESULT. A MORE SPECIFIC ALTERNATE CHEMICAL METHOD MUST BE USED IN ORDER TO OBTAIN A CONFIRMED ANALYTICAL RESULT. CONFIRMATION PERFORMED UPON REQUEST Cannabinoids ........................... 50 Opiates ................................ 300 Cocaine ................................ 150 Amphetamine ............................ 500 Phencyclidine .......................... 25 Barbiturates ........................... 200 Methadone .............................. 300 Benzodiazepines ........................ 200 INTERPRETIVE INFOMRATION: This is a screening test only. False positive and false negative results can occur. The absence of expected drug(s) and/or drug metabolite(s) may indicate non-compliance, inappropriate timing of specimen absorption, diluted/adulterated urine, or limitations of testing. The concentration at which the screening test can detect a drug or metabolite varies within a drug class. The concentration value must be greater than or equal to the cutoff to be reported as positive. The following opiods are not detected in this test: fentanyl,buprenorphine, meperidine, tramadol, and tapentadol. Individual opioid testing is available and can be ordered separately. BARBITURATES Negative [facility] Comment on above: Order Comment: What Is Urine Source? Random Performed By: #### U DRGS #### [facility] [address] [place] [address] Other Comment: URINE DRUG SCREENS ARE FOR MEDICAL PURPOSES ONLY. THIS TEST PROVIDES ONLY A PRELIMINARY TEST RESULT. A MORE SPECIFIC ALTERNATE CHEMICAL METHOD MUST BE USED IN ORDER TO OBTAIN A CONFIRMED ANALYTICAL RESULT. CONFIRMATION PERFORMED UPON REQUEST Cannabinoids ........................... 50 Opiates ................................ 300 Cocaine ................................ 150 Amphetamine ............................ 500 Phencyclidine .......................... 25 Barbiturates ........................... 200 Methadone .............................. 300 Benzodiazepines ........................ 200 INTERPRETIVE INFOMRATION: This is a screening test only. False positive and false negative results can occur. The absence of expected drug(s) and/or drug metabolite(s) may indicate non-compliance, inappropriate timing of specimen absorption, diluted/adulterated urine, or limitations of testing. The concentration at which the screening test can detect a drug or metabolite varies within a drug class. The concentration value must be greater than or equal to the cutoff to be reported as positive. The following opiods are not detected in this test: fentanyl,buprenorphine, meperidine, tramadol, and tapentadol. Individual opioid testing is available and can be ordered separately. BENZODIAZEPINES Negative Normal [facility] Comment on above: Order Comment: What Is Urine Source? Random Performed By: #### U DRGS #### [facility] [address] [place] [address] Other Comment: URINE DRUG SCREENS ARE FOR MEDICAL PURPOSES ONLY. THIS TEST PROVIDES ONLY A PRELIMINARY TEST RESULT. A MORE SPECIFIC ALTERNATE CHEMICAL METHOD MUST BE USED IN ORDER TO OBTAIN A CONFIRMED ANALYTICAL RESULT. CONFIRMATION PERFORMED UPON REQUEST Cannabinoids ........................... 50 Opiates ................................ 300 Cocaine ................................ 150 Amphetamine ............................ 500 Phencyclidine .......................... 25 Barbiturates ........................... 200 Methadone .............................. 300 Benzodiazepines ........................ 200 INTERPRETIVE INFOMRATION: This is a screening test only. False positive and false negative results can occur. The absence of expected drug(s) and/or drug metabolite(s) may indicate non-compliance, inappropriate timing of specimen absorption, diluted/adulterated urine, or limitations of testing. The concentration at which the screening test can detect a drug or metabolite varies within a drug class. The concentration value must be greater than or equal to the cutoff to be reported as positive. The following opiods are not detected in this test: fentanyl,buprenorphine, meperidine, tramadol, and tapentadol. Individual opioid testing is available and can be ordered separately. COCAINE Negative [facility] Comment on above: Order Comment: What Is Urine Source? Random Performed By: #### U DRGS #### [facility] [address] [place] [address] Other Comment: URINE DRUG SCREENS ARE FOR MEDICAL PURPOSES ONLY. THIS TEST PROVIDES ONLY A PRELIMINARY TEST RESULT. A MORE SPECIFIC ALTERNATE CHEMICAL METHOD MUST BE USED IN ORDER TO OBTAIN A CONFIRMED ANALYTICAL RESULT. CONFIRMATION PERFORMED UPON REQUEST Cannabinoids ........................... 50 Opiates ................................ 300 Cocaine ................................ 150 Amphetamine ............................ 500 Phencyclidine .......................... 25 Barbiturates ........................... 200 Methadone .............................. 300 Benzodiazepines ........................ 200 INTERPRETIVE INFOMRATION: This is a screening test only. False positive and false negative results can occur. The absence of expected drug(s) and/or drug metabolite(s) may indicate non-compliance, inappropriate timing of specimen absorption, diluted/adulterated urine, or limitations of testing. The concentration at which the screening test can detect a drug or metabolite varies within a drug class. The concentration value must be greater than or equal to the cutoff to be reported as positive. The following opiods are not detected in this test: fentanyl,buprenorphine, meperidine, tramadol, and tapentadol. Individual opioid testing is available and can be ordered separately. METHADONE Negative [facility] Comment on above: Order Comment: What Is Urine Source? Random Performed By: #### U DRGS #### [address] [address] Other Comment: URINE DRUG SCREENS ARE FOR MEDICAL PURPOSES ONLY. THIS TEST PROVIDES ONLY A PRELIMINARY TEST RESULT. A MORE SPECIFIC ALTERNATE CHEMICAL METHOD MUST BE USED IN ORDER TO OBTAIN A CONFIRMED ANALYTICAL RESULT. CONFIRMATION PERFORMED UPON REQUEST Cannabinoids ........................... 50 Opiates ................................ 300 Cocaine ................................ 150 Amphetamine ............................ 500 Phencyclidine .......................... 25 Barbiturates ........................... 200 Methadone .............................. 300 Benzodiazepines ........................ 200 INTERPRETIVE INFOMRATION: This is a screening test only. False positive and false negative results can occur. The absence of expected drug(s) and/or drug metabolite(s) may indicate non-compliance, inappropriate timing of specimen absorption, diluted/adulterated urine, or limitations of testing. The concentration at which the screening test can detect a drug or metabolite varies within a drug class. The concentration value must be greater than or equal to the cutoff to be reported as positive. The following opiods are not detected in this test: fentanyl,buprenorphine, meperidine, tramadol, and tapentadol. Individual opioid testing is available and can be ordered separately. OPIATES Negative [facility] Comment on above: Order Comment: What Is Urine Source? Random Performed By: #### U DRGS #### [address] [address] Other Comment: URINE DRUG SCREENS ARE FOR MEDICAL PURPOSES ONLY. THIS TEST PROVIDES ONLY A PRELIMINARY TEST RESULT. A MORE SPECIFIC ALTERNATE CHEMICAL METHOD MUST BE USED IN ORDER TO OBTAIN A CONFIRMED ANALYTICAL RESULT. CONFIRMATION PERFORMED UPON REQUEST Cannabinoids ........................... 50 Opiates ................................ 300 Cocaine ................................ 150 Amphetamine ............................ 500 Phencyclidine .......................... 25 Barbiturates ........................... 200 Methadone .............................. 300 Benzodiazepines ........................ 200 INTERPRETIVE INFOMRATION: This is a screening test only. False positive and false negative results can occur. The absence of expected drug(s) and/or drug metabolite(s) may indicate non-compliance, inappropriate timing of specimen absorption, diluted/adulterated urine, or limitations of testing. The concentration at which the screening test can detect a drug or metabolite varies within a drug class. The concentration value must be greater than or equal to the cutoff to be reported as positive. The following opiods are not detected in this test: fentanyl,buprenorphine, meperidine, tramadol, and tapentadol. Individual opioid testing is available and can be ordered separately. PHENCYCLIDINE Negative [facility] Comment on above: Order Comment: What Is Urine Source? Random Performed By: #### U DRGS #### [facility] [address] [place] [address] Other Comment: URINE DRUG SCREENS ARE FOR MEDICAL PURPOSES ONLY. THIS TEST PROVIDES ONLY A PRELIMINARY TEST RESULT. A MORE SPECIFIC ALTERNATE CHEMICAL METHOD MUST BE USED IN ORDER TO OBTAIN A CONFIRMED ANALYTICAL RESULT. CONFIRMATION PERFORMED UPON REQUEST Cannabinoids ........................... 50 Opiates ................................ 300 Cocaine ................................ 150 Amphetamine ............................ 500 Phencyclidine .......................... 25 Barbiturates ........................... 200 Methadone .............................. 300 Benzodiazepines ........................ 200 INTERPRETIVE INFOMRATION: This is a screening test only. False positive and false negative results can occur. The absence of expected drug(s) and/or drug metabolite(s) may indicate non-compliance, inappropriate timing of specimen absorption, diluted/adulterated urine, or limitations of testing. The concentration at which the screening test can detect a drug or metabolite varies within a drug class. The concentration value must be greater than or equal to the cutoff to be reported as positive. The following opiods are not detected in this test: fentanyl,buprenorphine, meperidine, tramadol, and tapentadol. Individual opioid testing is available and can be ordered separately. THC Negative [facility] Comment on above: Order Comment: What Is Urine Source? Random Performed By: #### U DRGS #### [facility] [address] [place] [address] Other Comment: URINE DRUG SCREENS ARE FOR MEDICAL PURPOSES ONLY. THIS TEST PROVIDES ONLY A PRELIMINARY TEST RESULT. A MORE SPECIFIC ALTERNATE CHEMICAL METHOD MUST BE USED IN ORDER TO OBTAIN A CONFIRMED ANALYTICAL RESULT. CONFIRMATION PERFORMED UPON REQUEST Cannabinoids ........................... 50 Opiates ................................ 300 Cocaine ................................ 150 Amphetamine ............................ 500 Phencyclidine .......................... 25 Barbiturates ........................... 200 Methadone .............................. 300 Benzodiazepines ........................ 200 INTERPRETIVE INFOMRATION: This is a screening test only. False positive and false negative results can occur. The absence of expected drug(s) and/or drug metabolite(s) may indicate non-compliance, inappropriate timing of specimen absorption, diluted/adulterated urine, or limitations of testing. The concentration at which the screening test can detect a drug or metabolite varies within a drug class. The concentration value must be greater than or equal to the cutoff to be reported as positive. The following opiods are not detected in this test: fentanyl,buprenorphine, meperidine, tramadol, and tapentadol. Individual opioid testing is available and can be ordered separately. DRG SCREEN CUT OFF SEE BELOW Normal [facility] Comment on above: Order Comment: What Is Urine Source? Random Performed By: #### U DRGS #### [facility] [address] [place] [address] Other Comment: URINE DRUG SCREENS ARE FOR MEDICAL PURPOSES ONLY. THIS TEST PROVIDES ONLY A PRELIMINARY TEST RESULT. A MORE SPECIFIC ALTERNATE CHEMICAL METHOD MUST BE USED IN ORDER TO OBTAIN A CONFIRMED ANALYTICAL RESULT. CONFIRMATION PERFORMED UPON REQUEST Cannabinoids ........................... 50 Opiates ................................ 300 Cocaine ................................ 150 Amphetamine ............................ 500 Phencyclidine .......................... 25 Barbiturates ........................... 200 Methadone .............................. 300 Benzodiazepines ........................ 200 INTERPRETIVE INFOMRATION: This is a screening test only. False positive and false negative results can occur. The absence of expected drug(s) and/or drug metabolite(s) may indicate non-compliance, inappropriate timing of specimen absorption, diluted/adulterated urine, or limitations of testing. The concentration at which the screening test can detect a drug or metabolite varies within a drug class. The concentration value must be greater than or equal to the cutoff to be reported as positive. The following opiods are not detected in this test: fentanyl,buprenorphine, meperidine, tramadol, and tapentadol. Individual opioid testing is available and can be ordered separately. WRIST-LEFT CMPL MIN 3 VIEWSo n 05-21-2021 WRIST-LEFT CMPL MIN 3 VIEWS DALY EVANS Female [id number] Ordering physician: Yohana Bennett LOC:ER [id number] Attending physician: [id number] DO S: 05/21/21 Acc#: [id number] Exam/Proc: WRIST-LEFT CMPL MIN 3 VIEWS Dept: RADIOLOGY EXAMINATION: THREE OR MORE XRAY VIEWS OF THE LEFT WRIST05/21/2021 8:41 am WRIST 3+ VIEWS LEFT COMPARISON: No direct comparison available HISTORY: ORDERING SYSTEM PROVIDED HISTORY: TECHNOLOGIST PROVIDED HISTORY: Reason for Exam: PAIN FINDINGS: 4 mm enthesophyte medial margin base of 3rd metacarpal, abuts base of 4th metacarpal. No evidence for acute fracture, dislocation or destructive osseous process. Mild dorsal soft tissue swelling at wrist. IMPRESSION: Soft tissue swelling. No acute osseous process demonstrated. Electronically signed By Sam Walton DO 05/21/2021 8:50:09 AM EST Workstation ID : [id number] REPORT SIGNATURE ON FILE Electronically Signed Date/Time: 05/21/21 0850 Dictated Date/time: 05/21/21 0843 CC: [facility] XR Knee - left 4 Viewson IMPRESSION: Findings are suggestive of mild degenerative changes in the left knee. Ships Or Barges Loader: NANCY Transcribe Date/Time: Mar 12 2021 11:00A Dictated by : MATTY CASTELLON MD This examination was interpreted and the report reviewed and electronically signed by: MATTY CASTELLON MD on Mar 12 2021 11:01AM [facility] DIVISION OF RADIOLOGY * * *Final Report* * * DATE OF EXAM: Mar 12 2021 9:58AM WOX 5202 - XR KNEE 4V AP/PA BOTH+LAT/NOEL LT / PROCEDURE REASON: Acute pain of left knee * * * * Physician Interpretation * * * * EXAM TITLE: XR KNEE 4V AP/PA BOTH+LAT/NOEL LT EXAM DATE/TIME: 03/12/2021 9:58 AM COMPARISON: None. CLINICAL INDICATION/HISTORY: Left knee pain TECHNIQUE: AP/PA, lateral and sunrise views of the left knee are presented. FINDINGS: No acute fractures or subluxations are noted. Mild osteophyte formation along the posterior aspect of the patella. The joint spaces are well preserved. There is no evidence of joint effusion. The mineralization of the bones is normal. There is no significant soft tissue swelling. DIVISION OF RADIOLOGY Provider, Jam Ackerman - 03/12/2021 * * *Final Report* * * DATE OF EXAM: Mar 12 2021 9:58AM WOX 5202 - XR KNEE 4V AP/PA BOTH+LAT/NOEL LT / PROCEDURE REASON: Acute pain of left knee * * * * Physician Interpretation * * * * EXAM TITLE: XR KNEE 4V AP/PA BOTH+LAT/NOEL LT EXAM DATE/TIME: 03/12/2021 9:58 AM COMPARISON: None. CLINICAL INDICATION/HISTORY: Left knee pain TECHNIQUE: AP/PA, lateral and sunrise views of the left knee are presented. FINDINGS: No acute fractures or subluxations are noted. Mild osteophyte formation along the posterior aspect of the patella. The joint spaces are well preserved. There is no evidence of joint effusion. The mineralization of the bones is normal. There is no significant soft tissue swelling. IMPRESSION IMPRESSION: Findings are suggestive of mild degenerative changes in the left knee. Ships Or Barges Loader: PSCB Transcribe Date/Time: Mar 12 2021 11:00A Dictated by : MATTY CASTELLON MD This examination was interpreted and the report reviewed and electronically signed by: MATTY CASTELLON MD on Mar 12 2021 11:01AM EST [facility] Radiology Study observation (narrative) [facility] XR Knee - left 4 ViewsOrdere d By: [facility] Provider on 03-12-2021 [facility] TS GELon 02-07-2018 TS GEL ABO Group: O Rh, Gel: POS Antibody Screen Gel: NEG Normal [facility] Comment on above: Performed By: #### T SGL ####[id number] [place] [address] Basic Metabolic Panelon 01-25 Anion gap 3 molar conc 8 Normal [facility] Comment on above: Performed By: #### H EMDF, ESR, PT/AP, LACT3, QWNT, CRP2, BMP3 ####[id number] [place], [place] Calcium mass conc 8.8 mg/dL Normal 8.4-10.4 [facility] Comment on above: Performed By: #### H EMDF, ESR, PT/AP, LACT3, QWNT, CRP2, BMP3 ####[address] [place], [place] CO2 molar conc 24 mmol/L Normal 22-30 [facility] Comment on above: Performed By: #### H EMDF, ESR, PT/AP, LACT3, QWNT, CRP2, BMP3 ####[address] Glucose mass conc 89 mg/dL Normal 70-100 [facility] Comment on above: Performed By: #### H EMDF, ESR, PT/AP, LACT3, QWNT, CRP2, BMP3 ####[address] Urea nitrogen mass conc 10 mg/dL Normal 7-20 [facility] Comment on above: Performed By: #### H EMDF, ESR, PT/AP, LACT3, QWNT, CRP2, BMP3 ####[address] Creatinine mass conc 0.67 mg/dL Normal 0.52-1.25 [facility] Comment on above: Performed By: #### H EMDF, ESR, PT/AP, LACT3, QWNT, CRP2, BMP3 ####[address] [place], [place] GFR/1.73 sq M predicted among blacks MDRD vol rate/area (S/P/Bld) mL/min/{1.73_m2} Normal >60 [facility] Comment on above: Performed By: #### H EMDF, ESR, PT/AP, LACT3, QWNT, CRP2, BMP3 ####[address] [place], [place] GFR/1.73 sq M predicted among non-blacks MDRD vol rate/area (S/P/Bld) mL/min/{1.73_m2} Normal >60 [facility] Comment on above: Result Comment: Sour ce- MDRD equation with creatinine calibration to IDMS(NKDEP) eGFR not recommended for drug dose adjustment Performed By: #### H EMDF, ESR, PT/AP, LACT3, QWNT, CRP2, BMP3 ####[id number] [employer] [place] Chloride molar conc 108 mmol/L High 98-107 [facility] Comment on above: Performed By: #### H EMDF, ESR, PT/AP, LACT3, QWNT, CRP2, BMP3 ####[address] [employer] [place] Potassium molar conc 3.7 mmol/L Normal 3.5-5.1 [facility] Comment on above: Performed By: #### H EMDF, ESR, PT/AP, LACT3, QWNT, CRP2, BMP3 ####[id number] [place], [place] Sodium molar conc 140 mmol/L Normal 137-145 [facility] Comment on above: Performed By: #### H EMDF, ESR, PT/AP, LACT3, QWNT, CRP2, BMP3 ####[address] [place], [place] C-Reactive Proteinon 018 CRP mass conc 9.4 mg/L High 0.0-6.0 [facility] Comment on above: Result Comment: . Performed By: #### H EMDF, ESR, PT/AP, LACT3, QWNT, CRP2, BMP3 ####[id number] [place], [place] Hemogram w/ Autodiffon 02-06 Abs Baso Cnt 0.0 10*3/uL Normal 0.0-0.2 [facility] Comment on above: Performed By: #### H EMDF, ESR, PT/AP, LACT3, QWNT, CRP2, BMP3 ####[address] Abs Neutrophile Cnt 4.8 10*3/uL Normal 1.8-7.0 [facility] Comment on above: Performed By: #### H EMDF, ESR, PT/AP, LACT3, QWNT, CRP2, BMP3 ####[address] Basophils/100 WBC Auto (Bld) 0.3 % Normal 0.0-2.0 [facility] Comment on above: Performed By: #### H EMDF, ESR, PT/AP, LACT3, QWNT, CRP2, BMP3 ####[address] Eosinophils Auto #/vol (Bld) 0.1 10*3/uL Normal 0.0-0.5 [facility] Comment on above: Performed By: #### H EMDF, ESR, PT/AP, LACT3, QWNT, CRP2, BMP3 ####[address] Eosinophils/100 WBC Auto (Bld) 1.7 % Normal 1.0-6.0 [facility] Comment on above: Performed By: #### H EMDF, ESR, PT/AP, LACT3, QWNT, CRP2, BMP3 ####[address] Erythrocyte distribution width Auto Ratio (RBC) 14.5 % Normal 11.5-14.5 [facility] Comment on above: Performed By: #### H EMDF, ESR, PT/AP, LACT3, QWNT, CRP2, BMP3 ####[address] Granulocytes/100 WBC (Bld) 62.0 % Normal 40.0-80.0 [facility] Comment on above: Performed By: #### H EMDF, ESR, PT/AP, LACT3, QWNT, CRP2, BMP3 ####[address] Hematocrit Auto Volume Fraction (Bld) 40.4 % Normal 35.0-47.0 [facility] Comment on above: Performed By: #### H EMDF, ESR, PT/AP, LACT3, QWNT, CRP2, BMP3 ####[address] [place], [place] Hemoglobin mass conc (Bld) 13.7 g/dL Normal 11.7-16.0 [facility] Comment on above: Performed By: #### H EMDF, ESR, PT/AP, LACT3, QWNT, CRP2, BMP3 ####[address] Lymphocytes Auto #/vol (Bld) 2.3 10*3/uL Normal 1.0-4.3 [facility] Comment on above: Performed By: #### H EMDF, ESR, PT/AP, LACT3, QWNT, CRP2, BMP3 ####[address] Lymphocytes/100 WBC Auto (Bld) 29.4 % Normal 20.0-40.0 [facility] Comment on above: Performed By: #### H EMDF, ESR, PT/AP, LACT3, QWNT, CRP2, BMP3 ####[address] MCH Auto Entitic mass (RBC) 31.2 pg Normal 26.0-34.0 [facility] Comment on above: Performed By: #### H EMDF, ESR, PT/AP, LACT3, QWNT, CRP2, BMP3 ####[address] [place], [place] MCHC Auto mass conc (RBC) 33.9 % Normal 32.0-36.0 [facility] Comment on above: Performed By: #### H EMDF, ESR, PT/AP, LACT3, QWNT, CRP2, BMP3 ####[address] MCV Auto Entitic volume (RBC) 92.2 fL Normal 79.0-98.0 [facility] Comment on above: Performed By: #### H EMDF, ESR, PT/AP, LACT3, QWNT, CRP2, BMP3 ####[address] [place], [place] Monocytes Auto #/vol (Bld) 0.5 10*3/uL Normal 0.0-0.8 [facility] Comment on above: Performed By: #### H EMDF, ESR, PT/AP, LACT3, QWNT, CRP2, BMP3 ####[address] [place], [place] Monocytes/100 WBC Auto (Bld) 6.6 % Normal 2.0-10.0 [facility] Comment on above: Performed By: #### H EMDF, ESR, PT/AP, LACT3, QWNT, CRP2, BMP3 ####[address] Platelet mean volume Auto Entitic volume (Bld) 7.8 fL Normal 7.4-10.4 [facility] Comment on above: Performed By: #### H EMDF, ESR, PT/AP, LACT3, QWNT, CRP2, BMP3 ####[address] [place], [place] Platelets Auto #/vol (Bld) 282 10*3/uL Normal 140-440 [facility] Comment on above: Performed By: #### H EMDF, ESR, PT/AP, LACT3, QWNT, CRP2, BMP3 ####[address] [place], [place] RBC Auto #/vol (Bld) 4.38 10*6/uL Normal 3.80-5.20 [facility] Comment on above: Performed By: #### H EMDF, ESR, PT/AP, LACT3, QWNT, CRP2, BMP3 ####[address] [place], [place] WBC Auto #/vol (Bld) 7.8 10*3/uL Normal 3.6-10.7 [facility] Comment on above: Performed By: #### H EMDF, ESR, PT/AP, LACT3, QWNT, CRP2, BMP3 ####[id number] [place], [place] Lactic Acidon 02-06-2018 Lactate molar conc 0.6 mmol/L Low 0.7-2.0 [facility] Comment on above: Performed By: #### H EMDF, ESR, PT/AP, LACT3, QWNT, CRP2, BMP3 ####[facility] [id number] [place], [place] Protime AND APTTon 8 INR Coag RelTime (PPP) 1.0 Normal 0.9-1.1 [facility] Comment on above: Result Comment: Soy mmended Anticoagulant Therapy: SEE BELOW----- INR of 2.0 - 3.0 : - Prophylaxis of Venous Thrombosis (high-risk surgery) - Treatment of Venous Thrombosis - Treatment of Pulmonary Embolism (Includes tissue heart valves, Acute Myocardial Infarction to prevent systemic embolism, Valvular Heart Disease, and Atrial Fibrillation)----- INR of 2.5 - 3.5 : - Mechanical Prosthetic Valves (high risk) - If oral anticoagulant therapy is used to prevent Myocardial Infarction Performed By: #### H EMDF, ESR, PT/AP, LACT3, QWNT, CRP2, BMP3 ####[facility] [id number] [place], [place] Prothrombin time (PT) Coag time (PPP) 10.4 s Normal 9.0-12.0 [facility] Comment on above: Result Comment: . Performed By: #### H EMDF, ESR, PT/AP, LACT3, QWNT, CRP2, BMP3 ####[id number] [place], [place] aPTT Coag time (Bld) 24.1 s Normal 20.0-30.5 [facility] Comment on above: Result Comment: NOTE : The therapeutic time for Heparin anticoagulation,based on Xa activity inhibition, is an APTT of 46-80seconds. Performed By: #### H EMDF, ESR, PT/AP, LACT3, QWNT, CRP2, BMP3 ####[facility] [id number] [place] [address] Sed Rateon 02-06-2018 Sed Rate 13 mm/h Normal 0-20 [facility] Comment on above: Performed By: #### H EMDF, ESR, PT/AP, LACT3, QWNT, CRP2, BMP3 ####[facility] [place] [address] hCG Quantitativeon 8 hCG Quantitative < 2 Normal < 3 [facility] Comment on above: Performed By: #### H EMDF, ESR, PT/AP, LACT3, QWNT, CRP2, BMP3 ####[address] [place] [address] History And Physical-Dictate don 01-03-2018 Discharge Summary [facility], [place] [address]OUCCDALY BRADY [facility] [id number] 1985ADMIT 12/08/2017DISCH 12/13/2017DISCHARGE SUMMARYREASON FOR ADMISSIONDaly Evans is a 32 years young, single female who was admitted asan emergency from [facility] on 12/08/2017 with history of increasingdepression and suicidal ideations. She reported multiple psychosocial issuesincluding recent break-up with a boyfriend, loss of adequate housing andunemployment since May,. She is also a single mother of a 5-year-old son. She was contemplating to take an overdose when she call [facility]'s crisis hotline, and following evaluation at [facility] emergency room, she was admitted for further evaluation and management.LABORATORY DATAGeneral chemistry revealed normal lipid profiles. Urinalysis on12/08/2017 was unremarkable.HOSPITAL COURSEDuring her brief hospital stay, she made slow but steady improvement withabatement of suicidal ideations, alleviation of depressed mood, brighteraffect, and improvement in personal hygiene, dressing, grooming, sleep, andappetite.During individual counseling sessions, she was counseled about her multiplepsychosocial issues, improving communications skills, social skills, andvocational skills. By the time of discharge, she was verbalizing appropriateinsight and need to continue with after care.SUBSTANCE USE1. During the hospital stay, she was counseled about risk of cigarettes andoffered smoking cessation program to no avail.2. She was also counseled about risk of alcohol and illicit drug use andcombining medication with alcohol and illicit drug use and its risks.MEDICATIONSAt the time of admissions she was counseled and, with her verbal consent, shewas prescribed Topamax 25 mg at bedtime, Seroquel 300 mg at bedtime, Wazqjmfc83 mg at bedtime and trazodone 100 mg at bedtime. She complied with medicine,did not experience any significant side effects and responded positively asdescribed above.During the hospital stay she also received Protonix 40 mg a day.DISCHARGE DIAGNOSESMajor depressive disorder, single episode, severe, without psychotic features.DISCHARGE RECOMMENDATIONS1. She was counseled about importance of compliance with medication.2. She was counseled and offered nicotine cessation program to no avail.3. [facility] was counseled and [facility] [place] [place].CONDITION AT TIME OF DISCHARGEImproved.LEOBARDO GEORGE, ONEAL 01/03/2018 11:07 [id number] 01/03/2018 11:21 CPP/MODLElectronically Signed By Zakiya George M.D. on 07 Jan 2018 17:56:48 GMT Normal [facility] History And Physical-Dictated [facility], [place] [address]TZWT DALY EVANS [facility] [id number] 1985ADMIT 12/08/2017HISTORY AND PHYSICALIDENTIFICATION DATAJecharly Evans is a 75-cdglr-ctidr single, female who was admitted asan emergency from [facility] on 12/08/2017.CHIEF COMPLAINTI was [facility] about my depression and suicidal ideations. Next thing Iknow, they sent police after me.PRESENT PSYCHIATRIC HISTORYJessrory reported that she has been experiencing difficulties with live-inboyfriend of past 10 years. Daly reported that recently boyfriend walkedout on the relationship, leaving her by herself in an apartment thatfinancially she is not able to maintain. As a result, she is worried abouthaving to move out of the apartment by end of the month, needing to findanother placement for her and her 5-year-old son, and having no employmentsince May 2017. She reported that this made her depressed. She startedcontemplating suicide by taking an overdose, she called [facility] crisis hotline, and [facility]. She reported that prior to thisadmission she was taking a number of medications as prescribed by nursepractitioner at [facility]. She was unable to identify all themedication and the strength.FAMILY HISTORYShe denied any knowledge of psychiatric illness in the family. However, shedid report that her only sibling, a brother, has Asperger syndrome andcurrently he lives at home with his parents.PAST PSYCHIATRIC HISTORYShe reported that she has been receiving outpatient treatment at [facility] off and on since the age of 13.She reported that she was admitted to [facility] October 2017[facility] following an overdose of trazodone, Prozac, and Lamictal.PERSONAL HISTORYShreema is a 39-dtumb-yjp young single, female, and mother of a 5-year-old son who is currently living with his maternal grandparents. She has ahigh school diploma. She remains unemployed since June 2016.MEDICAL HISTORYShe denied current medical illness. She reported she has bilateral carpaltunnel syndrome. She is status post section and denied any allergy.HISTORY OF SUBSTANCE USEShe reported smoking up to a pack of cigarettes a day since the age of 15.She reported history of alcohol use starting at the age of 16 and deniedhistory of alcohol abuse.She reported a history of marijuana use in high school, but denied anymarijuana use over the past 10 to 12 years.MENTAL STATUS EXAMINATIONShe was alert and oriented to time, place, and person. Her personal hygiene,dressing, and grooming were unkept. She had extensive tattoos on both upperextremities and chest. Her eye contact was good. Her speech and thoughtprocesses were slow, delayed, monotonous, but coherent and relevant, andthought content was nondelusional. Her mood was depressed, affect was moodcongruent. She reported recurrent intrusive negative thoughts, includingthoughts of suicide and wanting to take an overdose of medication. Herattention span was poor. Her memory for the recent and immediate events wasfair. Her IQ was average. Her reasoning was abstract. She reported lack ofenergy, lack of motivation, feeling overwhelmed with multiple psychosocialstressors, and difficulties falling and staying asleep and poor appetitewithout any significant weight loss. Her insight and judgment remain poor.She denied any history of abuse.She denied any signs or symptoms suggestive of emilie or hypomania or OCD.She reported that over the years she has been treated with Prozac, Zoloft,Paxil, Effexor, Celexa, Lexapro, Wellbutrin, Risperdal, Seroquel, Zyprexa,lithium, Depakote, Topamax, and Lamictal, and Lamictal was most effective inreducing her depression.REVIEW OF SYSTEMSTen systems were reviewed and findings are as described above.PHYSICAL EXAMINATIONConstitutional: She is 172.72 cm tall, weighs 94.801 kg with a body massindex of 31.78.Vital signs: Temperature 97.8 degrees Fahrenheit, pulse 80, BP 111/78,respirations 18.Neurological: Cranial nerves 2-12 grossly intact. Motor strength and tonegood. Gait steady. No tremors.LABORATORY DATAUrinalysis on 12/08/2017 was unremarkable.Chemistry on 12/09/2017 was unremarkable.DIAGNOSTIC IMPRESSION1. Mood disorder not otherwise specified.2. Rule out major depression, recurrent, severe.TREATMENT PLAN1. Provide safe environment.2. She was counseled about her diagnoses and treatment options.3. She was counseled and, with her verbal consent, she was resumed ontrazodone 100 mg at bedtime, Seroquel 300 mg at bedtime, Lamictal 50 mgat bedtime, Topamax 25 mg at bedtime, and Protonix 40 mg a day.ESTIMATED LENGTH OF STAY5 to 7 days.ZAKIYA GEORGE, MDD 12/09/2017 11:05 [id number] 12/09/2017 11:34 CPP/MODLElectronically Signed By Zakiya George M.D. on 11 Dec 2017 17:30:48 GMT Normal [facility], [place] [address]UJBO DALY EVANS [facility] [id number] 1985DATE 12/12/2017PROGRESS Tyrel was seen individually and the case was discussed with nursing staff intreatment team meeting and her records were reviewed on 12/12/2017.Nursing staff reported that Daly remains socially and emotionallywithdrawn, spends a lot of time by herself, usually sleeping but appropriatewhen approached.Daly reported that she was still feeling tired and depressed and did nothave much motivation.MENTAL STATUS EXAMINATIONShe was alert and oriented to time, place, and person. Her personal hygiene,dressing, and grooming were disheveled. Her eye contact was good. Her speechand thought processes were slow, delayed, monotonous but coherent andrelevant, and thought content was nondelusional. Her mood was depressed.Affect was mood congruent. She denied current paranoia or hallucinations orsuicidal or homicidal ideations or plans. She verbalized good insight intoher illness and need for treatment. Her insight and judgment remain poor.VITAL SIGNSTemperature 98.3 degrees Fahrenheit, pulse 73, BP 98/64, respirations 16.TREATMENT PLANS1. She was counseled and encouraged to participate in therapeuticactivities.2. She was counseled about sleep hygiene and encouraged to avoid daytimesleep.3. She was counseled and encouraged to continue with current treatmentplans.ZAKIYA GEORGE, ONEAL 12/12/2017 11:18 [id number] 12/12/2017 17:11 CPP/MODLElectronically Signed By Zakiya George M.D. on 14 Dec 2017 21:36:28 GMT Normal [facility] Lipid Panelon 12-09-2017 Cholesterol 168 mg/dL Normal 100-199 [facility] Comment on above: Performed By: #### T SH, LIPID ####Unless otherwise noted, all testing performed by [address] [phone]: [id number] Director: Willis Paulino M.D. Cholesterol in VLDL mass conc 21 mg/dL Normal 5-40 [facility] Comment on above: Performed By: #### T SH, LIPID ####Unless otherwise noted, all testing performed by [address] [phone]: [id number] Director: Willis Paulino M.D. Cholesterol to HDL Ratio 2.7 {ratio} Low 3.2-5.0 [facility] Comment on above: Result Comment: Jaqui le Coronary Heart Disease Risk Factor (CHDRF):Average risk= 4.41/2 Average risk= 3.32 times Average risk= 7.1 Performed By: #### T SH, LIPID ####Unless otherwise noted, all testing performed by [address] [id number]: [id number] Director: Willis Paulino M.D. HDL Cholesterol 62 mg/dL High 40-59 [facility] Comment on above: Performed By: #### T SH, LIPID ####Unless otherwise noted, all testing performed by [address] [id number]: [id number] Director: Willis Paulino M.D. LDL Cholesterol 86 mg/dL Normal 10-150 [facility] Comment on above: Performed By: #### T SH, LIPID ####Unless otherwise noted, all testing performed by [address], [place] [phone]: [id number] Director: Willis Paulino M.D. Triglyceride 105 mg/dL Normal 25-120 [facility] Comment on above: Performed By: #### T SH, LIPID ####Unless otherwise noted, all testing performed by [address] [id number]: [id number] Director: Willis Paulino M.D. TSHon 12-09-2017 Thyroid stimulating hormone (TSH) 1.70 uIU/mL Normal 0.320-5.000 [facility] Comment on above: Result Comment: Samp les from patients routinely receiving high dose biotin therapy(100-300 mg/day) may show falsely decreased results. Please correlateclinically. Performed By: #### T SH, LIPID ####Unless otherwise noted, all testing performed by [address] [phone]: [id number] Director: Willis Paulino M.D. Urinalysis, Routineon 2017 Bilirubin,Urine Negative Normal NEG;NEGATIV E [facility] Comment on above: Performed By: #### U A ####Unless otherwise noted, all testing performed by [address] [id number]: [id number] Director: Willis Paulino M.D. Blood,Urine Negative Normal NEG;NEGATIV E [facility] Comment on above: Performed By: #### U A ####Unless otherwise noted, all testing performed by [address] [id number]: [id number] Director: Willis Paulino M.D. Character Clear Normal [facility] Comment on above: Performed By: #### U A ####Unless otherwise noted, all testing performed by [address] [phone]: [id number] Director: Willis Paulino M.D. Ketone,Urine Negative Normal NEG;NEGATIV E [facility] Comment on above: Performed By: #### U A ####Unless otherwise noted, all testing performed by [place] [phone]: [id number] Director: Willis Paulino M.D. Leuk.Esterase,Urine Negative Normal Negative [facility] Comment on above: Performed By: #### U A ####Unless otherwise noted, all testing performed by [address] [phone]: [id number] Director: Willis Paulino M.D. Nitrite,Urine Negative Normal NEG;NEGATIV E [facility] Comment on above: Performed By: #### U A ####Unless otherwise noted, all testing performed by [address] [id number]: [id number] Director: Willis Paulino M.D. Protein,Urine Negative Normal NEG;NEGATIV E [facility] Comment on above: Performed By: #### U A ####Unless otherwise noted, all testing performed by [address] [id number]: [id number] Director: Willis Paulino M.D. Specific [place],Urine 1.006 Normal 1.003-1.029 [facility] Comment on above: Performed By: #### U A ####Unless otherwise noted, all testing performed by [address] [id number]: [id number] Director: Willis Paulino M.D. Squamous Epithelial 2 /HPF Normal 0-40 [facility] Comment on above: Performed By: #### U A ####Unless otherwise noted, all testing performed by [address] [id number]: [id number] Director: Willis Paulino M.D. Urine, color Yellow Normal [facility] Comment on above: Performed By: #### U A ####Unless otherwise noted, all testing performed by [address] [phone]: [id number] Director: Willis Paulino M.D. Urine, glucose presence Negative Normal NEG;NEGATIV E [facility] Comment on above: Performed By: #### U A ####Unless otherwise noted, all testing performed by [address] [phone]: [id number] Director: Willis Paulino M.D. Urine, leukocytes in sedmiment /[HPF] Normal 0-5 [facility] Comment on above: Performed By: #### U A ####Unless otherwise noted, all testing performed by [address] [id number]: [id number] Director: Willis Paulino M.D. Urine, pH 7.0 [pH] Normal 4.5-8.0 [facility] Comment on above: Performed By: #### U A ####Unless otherwise noted, all testing performed by [address] [id number]: [id number] Director: Willis Paulino M.D. Urobilinogen,Urine < 2.0 Normal <2 [facility] Comment on above: Performed By: #### U A ####Unless otherwise noted, all testing performed by [address] [id number]: [id number] Director: Willis Paulino M.D. Vital Signs Date Time Vital Sign Value Performing Clinician Facility 01-28-2025 14:18-0400 Body mass index (BMI) [Ratio] 27.06 kg/m2 Ed Thomas APRN.MANAGER CLINICAL RESEARCH Work Phone: [facility] 01-28-2025 14:18-0400 Body weight 78.38 kg Ed Thomas APRN.MANAGER CLINICAL RESEARCH Work Phone: [facility] 01-28-2025 14:18-0400 Diastolic blood pressure 64 mm[Hg] Ed Thomas APRN.MANAGER CLINICAL RESEARCH Work Phone: [facility] 01-28-2025 14:18-0400 Heart rate 112 /min Ed Thomas APRN.MANAGER CLINICAL RESEARCH Work Phone: [facility] 01-28-2025 14:18-0400 Respiratory rate 14 /min Ed Thomas APRN.MANAGER CLINICAL RESEARCH Work Phone: [facility] 01-28-2025 14:18-0400 SaO2% (BldA) [Mass fraction] 98 % Ed Thomas APRN.MANAGER CLINICAL RESEARCH Work Phone: [facility] 01-28-2025 14:18-0400 Systolic blood pressure 112 mm[Hg] Ed Doessa ALARM SIGNALER.MANAGER CLINICAL RESEARCH Work Phone: [facility] 01-10-2025 13:57-0400 Body mass index (BMI) [Ratio] 29.09 kg/m2 Ed Odessa ALARM SIGNALER.MANAGER CLINICAL RESEARCH Work Phone: [facility] 01-10-2025 13:57-0400 Body weight 84.28 kg Ed Odessa ALARM SIGNALER.MANAGER CLINICAL RESEARCH Work Phone: [facility] 01-10-2025 13:57-0400 Diastolic blood pressure 60 mm[Hg] Ed Odessa ALARM SIGNALER.MANAGER CLINICAL RESEARCH Work Phone: [facility] 01-10-2025 13:57-0400 Heart rate 84 /min Ed Odessa ALARM SIGNALER.MANAGER CLINICAL RESEARCH Work Phone: [facility] 01-10-2025 13:57-0400 SaO2% (BldA) [Mass fraction] 99 % Ed Odessa ALARM SIGNALER.MANAGER CLINICAL RESEARCH Work Phone: [facility] 01-10-2025 13:57-0400 Systolic blood pressure 90 mm[Hg] Ed Odessa ALARM SIGNALER.MANAGER CLINICAL RESEARCH Work Phone: [facility] 01-09-2025 11:00-0400 Body mass index (BMI) [Ratio] 29.59 kg/m2 Research Coordinator [facility] 01-09-2025 11:00-0400 Body weight 85.73 kg Research Coordinator [facility] Comment on above: per patient report using home weight payton palacio 12-31-2024 09:50-0400 Body height 170.2 cm Kirit Devine MD Work Phone: [facility] 12-31-2024 09:50-0400 Body mass index (BMI) [Ratio] 29.62 kg/m2 Kirit Devine MD Work Phone: [facility] 12-31-2024 09:50-0400 Body temperature 97.39 [degF] Kirit Devine MD Work Phone: [facility] 12-31-2024 09:50-0400 Body weight 85.8 kg Kirit Devine MD Work Phone: [facility] 12-31-2024 09:50-0400 Diastolic blood pressure 77 mm[Hg] Kirit Devine MD Work Phone: [facility] 12-31-2024 09:50-0400 Heart rate 111 /min Kirit Devine MD Work Phone: [facility] 12-31-2024 09:50-0400 Respiratory rate 18 /min Kirit Devine MD Work Phone: [facility] 12-31-2024 09:50-0400 SaO2% (BldA) [Mass fraction] 98 % Kirit Devine MD Work Phone: [facility] 12-31-2024 09:50-0400 Systolic blood pressure 106 mm[Hg] Kirit Caldwell Work Phone: [facility] 12-12-2024 19:56-0400 SaO2% (BldA) [Mass fraction] 98 % FREDRICK [facility] Comment on above: Order Comment: Specimen Type: ARTERIAL B LOOD SPECIMENOrdering Facility: [facility] Address: [address] [place] [address] Performed By: #### A LLBG ####[facility] [id number] [address] 12-12-2024 18:09-0400 SaO2% (BldA) [Mass fraction] 99 % FREDRICK B[facility] Comment on above: Order Comment: Specimen Type: ARTERIAL B LOOD SPECIMENOrdering Facility: [facility] Address: [address] [place] [address] Performed By: #### A LLBG ####[facility] [id number] [place] [id number] [facility] 12-12-2024 14:39-0400 SaO2% (BldA) [Mass fraction] 100 % FREDRICK BOLAND [facility] Comment on above: Order Comment: Specimen Type: ARTERIAL B LOOD SPECIMENOrdering Facility: [facility] Address: [address] [place] [address] Performed By: #### A LLMG ####[facility] LABCLIA [id number] [place] [id number] [facility] 12-12-2024 14:06-0400 SaO2% (BldA) [Mass fraction] 100 % FREDRICK BOLAND [facility] Comment on above: Order Comment: Specimen Type: ARTERIAL B LOOD SPECIMENOrdering Facility: [facility] Address: [address] [place] [address] Performed By: #### A LLMG ####[facility] LABIA [id number] [place] [id number] [facility] 12-12-2024 13:31-0400 SaO2% (BldA) [Mass fraction] 100 % FREDRICK BOLAND [facility] Comment on above: Order Comment: Specimen Type: ARTERIAL B LOOD SPECIMENOrdering Facility: [facility] Address: [address] [place] [address] Performed By: #### A LLMG ####[facility] LABIA [id number] [place] [id number] [facility] [place] 12-12-2024 11:41-0400 SaO2% (BldA) [Mass fraction] 100 % FREDRICK BOLAND [facility] Comment on above: Order Comment: Specimen Type: ARTERIAL B LOOD SPECIMENOrdering Facility: [facility] Address: [address] [place], [place] [id number] Performed By: #### A LLMG ####[facility] LABIA [id number] [place] [id number] [place] 12-12-2024 10:00-0400 SaO2% (BldA) [Mass fraction] 99 % FREDRICK BOLAND [facility] Comment on above: Order Comment: Specimen Type: ARTERIAL B LOOD SPECIMENOrdering Facility: [facility] Address: [address] [place] [address] Performed By: #### A LLMG ####[facility] LABCLIA [id number] [place] [address] [place] 10-02-2024 15:02-0400 Body height 169.5 cm Martín Masci DO Work Phone: [facility] 10-02-2024 15:02-0400 Body mass index (BMI) [Ratio] 32.21 kg/m2 Martín Masci DO Work Phone: [facility] 10-02-2024 15:02-0400 Body temperature 97.81 [degF] Martín Masci DO Work Phone: [facility] 10-02-2024 15:02-0400 Body weight 92.53 kg Martín Masci DO Work Phone: [facility] 10-02-2024 15:02-0400 Diastolic blood pressure 72 mm[Hg] Martín Masci DO Work Phone: [facility] 10-02-2024 15:02-0400 Heart rate 114 /min Martín Masci DO Work Phone: [facility] 10-02-2024 15:02-0400 SaO2% (BldA) [Mass fraction] 99 % Martín Masci DO Work Phone: [facility] 10-02-2024 15:02-0400 Systolic blood pressure 101 mm[Hg] Martín Masci DO Work Phone: [facility] 09-19-2024 12:21-0400 Diastolic blood pressure 92 mm[Hg] Angela Blackwood APRN.MANAGER CLINICAL RESEARCH Work Phone: [facility] 09-19-2024 12:21-0400 Heart rate 114 /min Angela Blackwood APRN.MANAGER CLINICAL RESEARCH Work Phone: [facility] 09-19-2024 12:21-0400 SaO2% (BldA) [Mass fraction] 96 % Angela Blackwood APRN.MANAGER CLINICAL RESEARCH Work Phone: [facility] 09-19-2024 12:21-0400 Systolic blood pressure 132 mm[Hg] Angela Jaison ALARM SIGNALER.MANAGER CLINICAL RESEARCH Work Phone: [facility] 08-16-2024 09:09-0500 Body mass index (BMI) [Ratio] 33.21 kg/m2 Xochilt Danisha ALARM SIGNALER.MANAGER CLINICAL RESEARCH Work Phone: [facility] 08-16-2024 09:09-0500 Body temperature 97.5 [degF] Xochilt Danisha ALARM SIGNALER.MANAGER CLINICAL RESEARCH Work Phone: [facility] 08-16-2024 09:09-0500 Body weight 98.25 kg Xochilt Danisha ALARM SIGNALER.MANAGER CLINICAL RESEARCH Work Phone: [facility] 08-16-2024 09:09-0500 Diastolic blood pressure 64 mm[Hg] Xochilt Stdanettema n ALARM SIGNALER.MANAGER CLINICAL RESEARCH Work Phone: [facility] 08-16-2024 09:09-0500 Heart rate 104 /min Xochilt Danisha ALARM SIGNALER.MANAGER CLINICAL RESEARCH Work Phone: [facility] 08-16-2024 09:09-0500 SaO2% (BldA) [Mass fraction] 98 % Xochilt Danisha ALARM SIGNALER.MANAGER CLINICAL RESEARCH Work Phone: [facility] 08-16-2024 09:09-0500 Systolic blood pressure 106 mm[Hg] Xochilt Danisha ALARM SIGNALER.MANAGER CLINICAL RESEARCH Work Phone: [facility] 08-07-2024 09:40-0500 Body height 172 cm Xochilt Danisha ALARM SIGNALER.MANAGER CLINICAL RESEARCH Work Phone: [facility] 08-07-2024 09:40-0500 Body mass index (BMI) [Ratio] 33.12 kg/m2 Xochilt Danisha ALARM SIGNALER.MANAGER CLINICAL RESEARCH Work Phone: [facility] 08-07-2024 09:40-0500 Body weight 97.98 kg Xochilt Danisha ALARM SIGNALER.MANAGER CLINICAL RESEARCH Work Phone: [facility] 08-07-2024 09:40-0500 Diastolic blood pressure 72 mm[Hg] Xochilt Stdanettema n ALARM SIGNALER.MANAGER CLINICAL RESEARCH Work Phone: [facility] 08-07-2024 09:40-0500 Heart rate 106 /min Xochilt Danisha ALARM SIGNALER.MANAGER CLINICAL RESEARCH Work Phone: [facility] 08-07-2024 09:40-0500 SaO2% (BldA) [Mass fraction] 96 % Xochiltyajaira Cohnman ALARM SIGNALER.MANAGER CLINICAL RESEARCH Work Phone: [facility] 08-07-2024 09:40-0500 Systolic blood pressure 108 mm[Hg] Xochilt Danisha ALARM SIGNALER.MANAGER CLINICAL RESEARCH Work Phone: [facility] 03-29-2022 12:23-0400 Body temperature 97.5 [degF] Fredrick Boland DO Work Phone: [facility] 03-29-2022 12:23-0400 Body weight 100.7 kg Fredrick Boland DO Work Phone: [facility] 03-29-2022 12:23-0400 Diastolic blood pressure 60 mm[Hg] Fredrick Boland DO Work Phone: [facility] 03-29-2022 12:23-0400 Heart rate 76 /min Fredrick Boland DO Work Phone: [facility] 03-29-2022 12:23-0400 Respiratory rate 16 /min Fredrick Boland DO Work Phone: [facility] 03-29-2022 12:23-0400 Systolic blood pressure 120 mm[Hg] Fredrick Boland DO Work Phone: [facility] 02-02-2022 09:00-0400 Body temperature 97.5 [degF] Fredrick Boland DO Work Phone: [facility] 02-02-2022 09:00-0400 Body weight 100.25 kg Fredrick Boland DO Work Phone: [facility] 02-02-2022 09:00-0400 Diastolic blood pressure 70 mm[Hg] Fredrick Boland DO Work Phone: [facility] 02-02-2022 09:00-0400 Heart rate 80 /min Fredrick Boland DO Work Phone: [facility] 02-02-2022 09:00-0400 Respiratory rate 16 /min Fredrick Boland DO Work Phone: [facility] 02-02-2022 09:00-0400 Systolic blood pressure 100 mm[Hg] Fredrick Boland DO Work Phone: [facility] 10-23-2021 08:43-0400 Body weight 97.52 kg Xochilt Danisha ALARM SIGNALER.MANAGER CLINICAL RESEARCH Work Phone: [facility] 10-23-2021 08:43-0400 Diastolic blood pressure 82 mm[Hg] Xochilt Stutzma n ALARM SIGNALER.MANAGER CLINICAL RESEARCH Work Phone: [facility] 10-23-2021 08:43-0400 Heart rate 79 /min Xochilt Danisha ALARM SIGNALER.MANAGER CLINICAL RESEARCH Work Phone: [facility] 10-23-2021 08:43-0400 Respiratory rate 16 /min Xochilt Danisha ALARM SIGNALER.MANAGER CLINICAL RESEARCH Work Phone: [facility] 10-23-2021 08:43-0400 SaO2% (BldA) [Mass fraction] 99 % Xochilt Danisha ALARM SIGNALER.MANAGER CLINICAL RESEARCH Work Phone: [facility] 10-23-2021 08:43-0400 Systolic blood pressure 122 mm[Hg] Xochilt Danisha ALARM SIGNALER.MANAGER CLINICAL RESEARCH Work Phone: [facility] Encounters Encounter Date Encounter Type Care Provider Facility Start: 02-05-2025 ambulatory Ed Thomas Facilit y:[facility] Start: 01-31-2025 ambulatory Alok Arreaga Facility: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; Malnutrition of moderate degree (HCC); Hypokalemia; Anemia, unspecified type; PICC (peripherally inserted central catheter) in place Start: 01-28-2025 End: 01-28-2025 ambulatory [facility] Facility:[facility] Start: 01-28-2025 End: 01-28-2025 Telephone encounter Jigna HowellRn) [facility] Comment on above: Research (JOSEPH JONATAN / [id number]) Start: 01-24-2025 End: 01-24-2025 Telephone encounter Hpn Music Composer Work Phone: Gastroenterology Start: 01-24-2025 End: 01-24-2025 ambulatory Yoseph Neeses Facility:[facility] Start: 01-23-2025 End: 01-23-2025 Telephone encounter Hpn Music Composer Work Phone: Gastroenterology Start: 01-22-2025 End: 01-22-2025 ambulatory Hpn Music Composer Work Phone: Gastroenterology Start: 01-21-2025 End: 01-21-2025 ambulatory [facility] Facility:[facility] Start: 01-17-2025 End: 01-17-2025 Telephone encounter Hpn Music Composer Work Phone: Gastroenterology Start: 01-15-2025 End: 01-24-2025 Follow-up encounter Ed Thomas APRN.MANAGER CLINICAL RESEARCH Work Phone: [facility] Comment on above: Results Start: 01-14-2025 End: 01-14-2025 Telephone encounter Ed Thomas APRN.MANAGER CLINICAL RESEARCH Work Phone: [facility] Start: 01-11-2025 End: 01-11-2025 ambulatory [facility] Facility:[facility] Start: 01-11-2025 End: 01-11-2025 [facility] Clayton Granados APRN.MANAGER CLINICAL RESEARCH Work Phone: Psychiatry Comment on above: ELIJAH (generalized anx iety disorder) (Primary Dx); Anxiety about health; Bipolar II disorder (HCC); Encounter for long-term (current) use of medications; Insomnia due to other mental disorder Start: 01-10-2025 End: 01-10-2025 ambulatory FREDRICK BOLAND Facility:[facility] Start: 01-10-2025 End: 01-10-2025 Office outpatient visit 40 minutes Ed Thomas APRN.MANAGER CLINICAL RESEARCH Work Phone: [facility] Comment on above: 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 Juan Manuel Byrd) Start: 01-08-2025 End: 01-10-2025 Telephone encounter Hpn Music Composer Work Phone: Gastroenterology Comment on above: Critical Lab Start: 01-08-2025 End: 01-08-2025 [facility] Start: 01-07-2025 End: 01-07-2025 Telephone encounter Larry Provider [facility] Comment on above: Fabric Transition of Care Start: 01-04-2025 End: 01-04-2025 Telephone encounter Dayan Krueger [facility] Hematology/Oncology Start: 01-03-2025 End: 01-03-2025 Telephone encounter Dayan Krueger [facility] Hematology/Oncology Start: 01-02-2025 End: 01-02-2025 Telephone encounter Jigna HowellRn) [facility] Comment on above: Transition Of Care Start: 01-01-2025 End: 01-01-2025 Telephone encounter Fredrick Boland DO Work Phone: NOC Comment on above: Transition Of Care Start: 01-01-2025 [facility] Facility:[facility] Start: 12-31-2024 End: 12-31-2024 Patient encounter procedure Kirit Devine MD Work Phone: [facility] Comment on above: S/P exploratory lapa rotomy Start: 12-31-2024 End: 12-31-2024 ambulatory FREDRICK BOLAND Facility:[facility] Start: 12-25-2024 End: 12-27-2024 ambulatory Jigna Matson (Rn) [facility] Comment on above: Research (JOSEPH CHEUNG / [id number]) Research (PHILIP manuel/IRB: [id number]- Pharmacist Contact ) Start: 12-25-2024 End: 12-25-2024 Telephone encounter Intestinal Trans Coord Main Work Phone: [facility] Comment on above: Hospital F/U Transition Of Care ( RC f/u discharge LVM /) Start: 12-24-2024 End: 12-24-2024 ambulatory [place] CHRISTOPHERPADDY Facility:[facility] Start: 12-21-2024 End: 12-30-2024 Orders Only Cgrt Dietitian Work Phone: Gastroenterology Comment on above: On total parenteral nutrition (TPN) (Primary Dx) IV Medication Admini stration CMN (Please see the document linked in the form filler section of this encounter and click the link to review. The document needs to be electronically signed at the bottom with both a wet signature (bottom left) and electronic signature (bottom right). The completed documentation/encounter can be routed back to Yuri Salcedo./ /If you have any questions, please feel call Yuri Salcedo at [phone]/) Start: 12-13-2024 End: 12-13-2024 Telephone encounter Intestinal Trans Coord Main Work Phone: [facility] Comment on above: Return Call Request Start: 11-28-2024 End: 11-28-2024 Telephone encounter Intestinal Trans Coord Main Work Phone: [facility] Comment on above: Return Call Request Start: 11-28-2024 End: 12-21-2024 Evaluation and management of inpatient FREDRICK BOLAND Facility:[facility] Start: 11-27-2024 End: 11-27-2024 Telephone encounter Kirit Devine MD Work Phone: [facility] Start: 11-21-2024 End: 11-23-2024 Evaluation and management of inpatient Taras Sue Facility:[facility] Start: 11-21-2024 ambulatory Taras Sue Fac ility:[facility] Start: 11-14-2024 ambulatory Ailyn Robert Facility:[facility] Start: 11-13-2024 End: 11-16-2024 ambulatory Ailyn Robert Facility:[facility] Start: 11-13-2024 End: 11-16-2024 Evaluation and management of inpatient Ashley Rosen Facility:[facility] Start: 11-12-2024 End: 11-12-2024 Telephone encounter [facility] Start: 11-06-2024 End: 11-06-2024 Telephone encounter Fredrick Boland DO Work Phone: [address] [place] [address] Comment on above: Transition Of Care ( Left V/m ) Start: 11-05-2024 End: 11-05-2024 Telephone encounter [facility] Start: 10-30-2024 End: 10-30-2024 Telephone encounter Larry Betancourt MD [facility] Department Comment on above: Fabric Transition of Care Start: 10-28-2024 ambulatory Taras Sue Fac ility:[facility] Start: 10-28-2024 End: 11-05-2024 Evaluation and management of inpatient Taras Sue Facility:[facility] Start: 10-26-2024 End: 10-26-2024 Patient encounter procedure Stephie Montoya MD Work Phone: Gastroenterology Comment on above: On total parenteral nutrition (TPN) (Primary Dx) Start: 10-19-2024 End: 10-26-2024 Evaluation and management of inpatient MICHAEL ELLIS Facility:[id number] Start: 10-19-2024 ambulatory MAGGIE PUTNAM [facility] Start: 10-19-2024 End: 10-19-2024 Emergency department patient visit HERBERT FLORES [facility] Start: 10-09-2024 End: 10-12-2024 ambulatory ROSA MARIA BULLOCK Facility:[id number] Start: 10-09-2024 End: 10-10-2024 Telephone encounter Martín Ballesteros DO Work Phone: Hematology/Oncology Comment on above: Results; Follow Up Start: 10-09-2024 End: 10-09-2024 Emergency department patient visit MAGGIE VO [facility] Start: 10-08-2024 End: 10-12-2024 Telephone encounter Nico Bashir [facility] Comment on above: Virtual Education Vi sit Start: 10-03-2024 End: 10-03-2024 Telephone encounter Martín Ballesteros DO Work Phone: Hematology/Oncology Comment on above: Electronic Communica tion Start: 10-02-2024 End: 10-02-2024 Patient encounter procedure Martín Ballesteros DO Work Phone: Hematology/Oncology Start: 10-02-2024 End: 10-03-2024 ambulatory Lab/Port Ernesto [facility] Work Phone: Hematology/Oncology Comment on above: Aortic thrombus (HCC ) (Primary Dx) Abnormal serum prote in electrophoresis (Primary Dx); Antiphospholipid antibody syndrome (HCC); Superior mesenteric artery thrombosis (HCC) Start: 09-19-2024 End: 09-19-2024 Patient encounter procedure Angela Blackwood APRN.MANAGER CLINICAL RESEARCH Work Phone: Vascular Surg Dept Comment on above: Encounter for post s urgical wound check (Primary Dx); Encounter for staple removal; Arterial occlusion; Acute lower limb ischemia; informatica (current) use of aspirin; custodial current use of anticoagulant Start: 09-19-2024 End: 09-19-2024 ambulatory FREDRICK BOLAND Facility:[facility] Start: 09-17-2024 End: 09-17-2024 Emergency department patient visit MAGGIE VO [facility] Start: 09-12-2024 End: 09-14-2024 Telephone encounter Martín Ballesteros DO Work Phone: Hematology/Oncology Comment on above: New Patient Gut Rehab/ Intestine Txp Referral Start: 09-11-2024 End: 09-14-2024 Orders Only Aleja Goncalves MD Work Phone: Vascular Surg Dept Comment on above: 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) Start: 09-10-2024 End: 09-25-2024 Telephone encounter Intestinal Trans Coord Main Work Phone: Transplant Center Comment on above: Gut Rehab/ Intestine Txp Referral Start: 09-06-2024 End: 09-25-2024 Telephone encounter Intestinal Trans Coord Main Work Phone: Transplant Center Comment on above: Gut Rehab/ Intestine Txp Referral Start: 09-05-2024 End: 09-05-2024 Telephone encounter Fredrick Boland DO Work Phone: NOC Comment on above: Appointment Start: 09-03-2024 End: 09-14-2024 Telephone encounter Intestinal Trans Coord Main Work Phone: Transplant Center Comment on above: Gut Rehab/ Intestina l Txp Referral Start: 09-03-2024 End: 10-26-2024 ambulatory MAGGIE VO [facility] Start: 08-28-2024 End: 08-28-2024 Telephone encounter Akua Grigsby MD Work Phone: Vascular Medicine Start: 08-20-2024 End: 08-20-2024 ambulatory Katelyn Villagran ALARM SIGNALER.MANAGER CLINICAL RESEARCH Work Phone: Critical Care Start: 08-20-2024 End: 09-03-2024 Evaluation and management of inpatient FREDRICK BOLAND Facility:[facility] Start: 08-20-2024 End: 08-20-2024 Emergency department patient visit Heraclio Palacio Facility:[facility] Start: 08-16-2024 End: 08-16-2024 Emergency department patient visit Jag Thomas Facility:[facility] Start: 08-16-2024 End: 08-16-2024 ambulatory XOCHILT GASTON Facility:[facility] Start: 08-16-2024 End: 08-16-2024 Office outpatient visit 25 minutes Xochiltyajaira Gaston APRN.MANAGER CLINICAL RESEARCH Work Phone: [facility] Comment on above: Productive cough (Pr imary Dx); Eczema, unspecified type Start: 08-08-2024 End: 08-29-2024 Follow-up encounter Xochilt Gaston APRN.CNP Work Phone: [facility] Comment on above: Anemia, unspecified type (Primary Dx) Start: 08-07-2024 End: 08-07-2024 Telephone encounter Xochilt Gaston APRN.CNP Work Phone: [facility] Comment on above: Results; EKG Start: 08-07-2024 End: 08-07-2024 ambulatory XOCHILT GASTON Facility:[facility] Start: 08-07-2024 End: 08-07-2024 Office outpatient visit 25 minutes Xochilt Gaston APRN.MANAGER CLINICAL RESEARCH Work Phone: [facility] Comment on above: Medication managemen t (Primary Dx); Hypokalemia; Low hemoglobin; Anemia, unspecified type; Elevated hemoglobin A1c Start: 07-30-2024 End: 07-30-2024 Emergency department patient visit Heraclio Palacio Facility:[facility] Start: 06-19-2024 End: 06-21-2024 ambulatory Clayton Granados APRN.MANAGER CLINICAL RESEARCH Work Phone: Psychiatry Comment on above: EKG Start: 05-21-2024 End: 05-21-2024 ambulatory CLAYTON GRANADOS Facility:[facility] Start: 05-18-2024 End: 05-18-2024 ambulatory CLAYTON GRANADOS Facility:[facility] Start: 05-18-2024 End: 05-18-2024 [facility] Clayton Granados APRN.MANAGER CLINICAL RESEARCH Work Phone: Psychiatry Comment on above: ELIJAH (generalized anx iety disorder) (Primary Dx); Panic attacks; Insomnia due to other mental disorder; Bipolar II disorder (HCC); Encounter for long-term (current) use of medications; History of marijuana use; Psychosocial stressors Start: 04-24-2024 End: 04-26-2024 ambulatory Clayton J Rajguru ALARM SIGNALER.MANAGER CLINICAL RESEARCH Work Phone: Psychiatry Comment on above: UA Start: 03-27-2024 End: 03-28-2024 ambulatory Clayton J Rajguru ALARM SIGNALER.MANAGER CLINICAL RESEARCH Work Phone: Psychiatry Comment on above: Lexapro and zyprexa Start: 03-21-2024 End: 03-21-2024 ambulatory Clayton J Rajguru ALARM SIGNALER.MANAGER CLINICAL RESEARCH Work Phone: Psychiatry Start: 03-21-2024 End: 03-21-2024 Patient encounter procedure Clayton Lila Nationru ALARM SIGNALER.MANAGER CLINICAL RESEARCH Work Phone: Psychiatry Comment on above: Appointment Start: 03-03-2024 End: 03-03-2024 ambulatory Clayton Lila Rajdelfinoru ALARM SIGNALER.MANAGER CLINICAL RESEARCH Work Phone: Psychiatry Comment on above: NO SHOW (Primary Dx) Start: 03-03-2024 End: 03-03-2024 Telemedicine consultation with patient Clayton Granados ALARM SIGNALER.MANAGER CLINICAL RESEARCH Work Phone: Psychiatry Start: 02-21-2024 End: 02-21-2024 ambulatory Clayton J Rajguru ALARM SIGNALER.MANAGER CLINICAL RESEARCH Work Phone: Psychiatry Comment on above: Lexapro Start: 01-26-2024 ambulatory Clayton J Chapisr u ALARM SIGNALER.MANAGER CLINICAL RESEARCH Work Phone: Psychiatry Comment on above: Appt Start: 01-19-2024 End: 01-19-2024 ambulatory Clayton Lila Nationru ALARM SIGNALER.MANAGER CLINICAL RESEARCH Work Phone: Psychiatry Comment on above: NO SHOW (Primary Dx) Start: 01-19-2024 End: 01-19-2024 Telemedicine consultation with patient Clayton Nationru ALARM SIGNALER.MANAGER CLINICAL RESEARCH Work Phone: Psychiatry Start: 12-30-2023 ambulatory Clayton J Chapisr u ALARM SIGNALER.MANAGER CLINICAL RESEARCH Work Phone: Psychiatry Start: 12-30-2023 End: 12-30-2023 Patient encounter procedure Clayton Lila Omerguru ALARM SIGNALER.MANAGER CLINICAL RESEARCH Work Phone: Psychiatry Comment on above: Appointment APPOINTMENT CANCELLE D (Primary Dx) Start: 12-30-2023 End: 12-30-2023 Telemedicine consultation with patient Clayton Lila Granados APRN.MANAGER CLINICAL RESEARCH Work Phone: Psychiatry Start: 12-12-2023 Refill Fredrick goodwin DO Work Phone: [facility] [place] Comment on above: Refill Request Start: 12-10-2023 MC Get Medical Advice Fredrick Boland DO Work Phone: Family Medicine [place] Comment on above: Refill Start: 11-12-2023 ambulatory Clayton Sharp Lakshmi roman ALARM SIGNALER.MANAGER CLINICAL RESEARCH Work Phone: Psychiatry Comment on above: Zyprexa Start: 10-19-2023 ambulatory Fredrick goodwin DO Work Phone: Internal Medicine Main [facility] Start: 09-27-2023 Refill Yesenia Rangel ALARM SIGNALER.MANAGER CLINICAL RESEARCH Work Phone: [facility] [place] Comment on above: Refill Request Start: 09-02-2023 End: 09-02-2023 [facility] Clayton Granados ALARM SIGNALER.MANAGER CLINICAL RESEARCH Work Phone: Psychiatry Comment on above: Bipolar II disorder (HCC) (Primary Dx); Encounter for long-term (current) use of medications; Panic disorder without agoraphobia; History of marijuana use; ELIJAH (generalized anxiety disorder) Start: 05-23-2023 ambulatory Clayton roman ALARM SIGNALER.MANAGER CLINICAL RESEARCH Work Phone: Psychiatry Comment on above: Zyprexa Start: 05-16-2023 End: 05-16-2023 Distance [facility] Clayton Granados ALARM SIGNALER.MANAGER CLINICAL RESEARCH Work Phone: Psychiatry Comment on above: Encounter for long-t erm (current) use of medications (Primary Dx); ELIJAH (generalized anxiety disorder); Bipolar II disorder (HCC); Panic disorder without agoraphobia Start: 04-18-2023 End: 04-18-2023 Distance [facility] Clayton Granados ALARM SIGNALER.MANAGER CLINICAL RESEARCH Work Phone: Psychiatry Comment on above: ELIJAH (generalized anx iety disorder) (Primary Dx); Panic attacks; Bipolar II disorder (HCC); Occasional use of marijuana Start: 03-15-2023 Refill Yesenia Juan Carlos ALARM SIGNALER.MANAGER CLINICAL RESEARCH Work Phone: [facility] Comment on above: Refill Request Start: 03-14-2023 End: 03-14-2023 [facility] Clayton Granados ALARM SIGNALER.MANAGER CLINICAL RESEARCH Work Phone: Psychiatry Comment on above: Encounter for long-t erm (current) use of medications (Primary Dx); ELIJAH (generalized anxiety disorder); Panic attacks; Bipolar affective disorder, current episode mixed, current episode severity unspecified (HCC) Start: 02-25-2023 ambulatory Clayton Nationr jessie ALARM SIGNALER.MANAGER CLINICAL RESEARCH Work Phone: [facility] [place] Start: 02-25-2023 Patient encounter procedure Clayton Granados ALARM SIGNALER.MANAGER CLINICAL RESEARCH Work Phone: Psychiatry Comment on above: Appointment Start: 01-05-2023 Refill Clayton Nationr u ALARM SIGNALER.MANAGER CLINICAL RESEARCH Work Phone: Psychiatry Comment on above: Refill Request Start: 01-03-2023 Refill Clayton Nationr u ALARM SIGNALER.MANAGER CLINICAL RESEARCH Work Phone: Psychiatry Comment on above: Refill Request Start: 12-31-2022 Refill Clayton Omergur u ALARM SIGNALER.MANAGER CLINICAL RESEARCH Work Phone: Psychiatry Comment on above: Refill Request Start: 10-28-2022 End: 10-28-2022 [facility] Clayton Granados ALARM SIGNALER.MANAGER CLINICAL RESEARCH Work Phone: Psychiatry Comment on above: History of marijuana use (Primary Dx); Bipolar II disorder (HCC); Panic disorder without agoraphobia Start: 10-01-2022 [facility] Comment on above: Piece Dye Worker - O ther (ECT) Start: 09-30-2022 End: 09-30-2022 ambulatory ESA VELÁSQUEZ Facility:[facility] Start: 09-30-2022 End: 09-30-2022 Patient encounter procedure Esa Velásquez ALARM SIGNALER.MANAGER CLINICAL RESEARCH Work Phone: Psychiatry Comment on above: Bipolar II disorder (HCC) (Primary Dx) Start: 09-27-2022 End: 09-27-2022 [facility] Claytonsammie Granados ALARM SIGNALER.[facility] Work Phone: Psychiatry Comment on above: Bipolar 2 disorder ( HCC) (Primary Dx); Panic disorder without agoraphobia; Marijuana use Start: 09-13-2022 End: 09-13-2022 ambulatory Clayton Granados ALARM SIGNALER.MANAGER CLINICAL RESEARCH Work Phone: Psychiatry Comment on above: NO SHOW (Primary Dx) Start: 09-13-2022 End: 09-13-2022 Telemedicine consultation with patient Clayton Lila Granados APRN.[facility] Work Phone: [facility] [place] Start: 08-24-2022 Telephone encounter Ariella Cortes RN Psychiatry Comment on above: ECT Referral Start: 08-08-2022 Refill Fredrick goodwin DO Work Phone: Family [facility] Comment on above: Refill Request Start: 07-19-2022 End: 07-19-2022 [facility] Clayton Granados ALARM SIGNALER.[facility] Work Phone: Psychiatry Comment on above: Panic disorder witho ut agoraphobia (Primary Dx); Bipolar 2 disorder (HCC); Marijuana use Start: 07-05-2022 Refill Clayton roman ALARM SIGNALER.MANAGER CLINICAL RESEARCH Work Phone: Psychiatry Comment on above: Refill Request Start: 07-01-2022 Refill Fredrick Hsu son DO Work Phone: [facility] [place] Comment on above: Refill Request Start: 05-31-2022 End: 05-31-2022 [facility] Clayton Granados ALARM SIGNALER.[facility] Work Phone: Psychiatry Comment on above: Encounter for long-t erm (current) use of medications (Primary Dx); Panic disorder without agoraphobia; Bipolar 2 disorder (HCC) Start: 05-24-2022 Refill Clayton Martins u ALARM SIGNALER.MANAGER CLINICAL RESEARCH Work Phone: Psychiatry Comment on above: Refill Request Start: 05-10-2022 Refill Clayton Omerdelfinor u ALARM SIGNALER.MANAGER CLINICAL RESEARCH Work Phone: Psychiatry Comment on above: Refill Request Lexapro Start: 04-09-2022 End: 04-09-2022 ambulatory Clayton Sharp Roberta ALARM SIGNALER.MANAGER CLINICAL RESEARCH Work Phone: Psychiatry Comment on above: NO SHOW (Primary Dx) Start: 04-09-2022 End: 04-09-2022 Telemedicine consultation with patient Clayton Omer ALARM SIGNALER.MANAGER CLINICAL RESEARCH Work Phone: [facility] [place] Start: 03-29-2022 End: 03-29-2022 Patient encounter procedure Fredrick Boland DO Work Phone: [facility] [place] Comment on above: Bilateral hand pain (Primary Dx); Elevated C-reactive protein (CRP); Bipolar affective disorder, current episode mixed, current episode severity unspecified (HCC) Start: 03-10-2022 Telephone encounter Fredrick walsh DO Work Phone: [facility] [place] Comment on above: Patient Update Start: 03-04-2022 End: 03-04-2022 [facility] Clayton Lila Granados ALARM SIGNALER.MANAGER CLINICAL RESEARCH Work Phone: Psychiatry Comment on above: Panic disorder witho ut agoraphobia (Primary Dx); Bipolar 2 disorder (HCC) Start: 02-11-2022 Refill Clayton Sharp Chapisr u ALARM SIGNALER.MANAGER CLINICAL RESEARCH Work Phone: Psychiatry Comment on above: Refill Request Start: 02-02-2022 End: 02-02-2022 Patient encounter procedure Fredrick Boland DO Work Phone: Family [facility] [place] Comment on above: Bilateral hand pain (Primary Dx); Foot pain, bilateral; Fatigue, unspecified type; Myalgia; Multiple joint pain; Iron deficiency Start: 01-27-2022 End: 01-27-2022 Distance [facility] Claytonsammie Granados ALARM SIGNALER.MANAGER CLINICAL RESEARCH Work Phone: Psychiatry Comment on above: Bipolar 2 disorder ( HCC) (Primary Dx); Panic disorder without agoraphobia Start: 01-11-2022 ambulatory Clayton roman ALARM SIGNALER.MANAGER CLINICAL RESEARCH Work Phone: Psychiatry Comment on above: Lab work Start: 12-24-2021 End: 12-24-2021 [facility] Clayton Granados ALARM SIGNALER.MANAGER CLINICAL RESEARCH Work Phone: Psychiatry Comment on above: ELIJAH (generalized anx iety disorder) (Primary Dx); Bipolar 2 disorder (HCC); Panic disorder without agoraphobia Start: 12-22-2021 Refill Yesenia Zurawic k ALARM SIGNALER.MANAGER CLINICAL RESEARCH Work Phone: Family Medicine [place] Comment on above: Refill Request Start: 12-15-2021 ambulatory Clayton roman ALARM SIGNALER.MANAGER CLINICAL RESEARCH Work Phone: Psychiatry Comment on above: Lexapro Start: 12-08-2021 Telephone encounter Clayton bro ALARM SIGNALER.MANAGER CLINICAL RESEARCH Work Phone: Psychiatry Comment on above: Patient Question Start: 11-26-2021 Refill Clayton roman ALARM SIGNALER.MANAGER CLINICAL RESEARCH Work Phone: Psychiatry Comment on above: Refill Request Start: 11-12-2021 End: 11-12-2021 Distance [facility] Clayton Granados ALARM SIGNALER.MANAGER CLINICAL RESEARCH Work Phone: Psychiatry Comment on above: ELIJAH (generalized anx iety disorder) (Primary Dx); Bipolar 2 disorder (HCC) Start: 11-03-2021 Refill Yesenia Zurawic k ALARM SIGNALER.MANAGER CLINICAL RESEARCH Work Phone: [facility] [place] Comment on above: Refill Request Start: 10-27-2021 End: 10-27-2021 Distance [facility] Claytonsammie Granados ALARM SIGNALER.MANAGER CLINICAL RESEARCH Work Phone: Psychiatry Comment on above: ELIJAH (generalized anx iety disorder) (Primary Dx); Bipolar 2 disorder (HCC) Start: 10-23-2021 ambulatory Xochilt holland ALARM SIGNALER.MANAGER CLINICAL RESEARCH Work Phone: [facility] [place] Start: 10-23-2021 End: 10-23-2021 Patient encounter procedure Xochilt Gaston ALARM SIGNALER.MANAGER CLINICAL RESEARCH Work Phone: Family [facility] [place] Comment on above: Appointment Bipolar affective di sorder, current episode mixed, current episode severity unspecified (HCC) (Primary Dx); Alcohol abuse; Depressive disorder; Panic attacks; ADD (attention deficit disorder) without hyperactivity; Legal intervention, bystander injured, initial encounter Start: 10-10-2021 ambulatory Room Emergency Radiolog y Comment on above: Radiology CT Start: 10-10-2021 Patient encounter procedure Room Emergency [facility] Start: 03-12-2021 End: 03-12-2021 Subsequent hospital visit by physician Xr [facility] [place] Work Phone: Radiology Comment on above: Acute pain of left k nee [M25.562] Start: 02-07-2018 Patient encounter procedure SANDRA Estrella [facility] Start: 12-08-2017 End: 12-13-2017 Evaluation and management of inpatient Zakiya Sade George Facility:[facility] Date Procedure Procedure Detail Performing Clinician Start: 01-10-2025 Adult depression scr eening assessment Hpn Music Composer Work Phone: Start: 12-18-2024 Antibody screen FREDRICK BOLAND Comment on above: Order Comment: Speci men Type: BLOOD SPECIMENOrdering Facility: [facility] Address: [address] [place] [address] Performed By: #### T SCR ####CC MAIN BLOOD BANKCLIA [id number] [address] [place] Start: 12-10-2024 Colonoscopy FREDRICK GAR RISON Start: 12-10-2024 Antibody screen FREDRICK BOLAND Comment on above: Order Comment: Speci men Type: BLOOD SPECIMENOrdering Facility: [facility] Address: [address] [place] [address] Performed By: #### T SCR ####CC MAIN BLOOD BANKCLIA [id number] [address] [place] Start: 12-06-2024 Colonoscopy FREDRICK GAR RISON Start: 12-05-2024 Colonoscopy FREDRICK GAR RISON Start: 10-02-2024 Heparin assay Martín parisi DO Work Phone: Start: 10-02-2024 PATHOLOGIST INTERPRE TATION CBC/DIFF Martín A Keylai DO Work Phone: Start: 09-21-2024 Urinalysis MAGGIE HAMILTON Comment on above: Result Comment: URIN ALYSIS Performed By: #### 2 [id number] #### [facility],[address] [place] [address] Start: 08-21-2024 H/O: surgery History of fasciotomy D danni Grigsby MD Work Phone: Start: 03-04-2022 Adult depression scr eening assessment Clayton Granados ALARM SIGNALER.MANAGER CLINICAL RESEARCH Work Phone: Start: 01-27-2022 Adult depression scr eening assessment Clayton Granados ALARM SIGNALER.MANAGER CLINICAL RESEARCH Work Phone: Start: 12-23-2021 Adult depression scr eening assessment Clayton Granados ALARM SIGNALER.MANAGER CLINICAL RESEARCH Work Phone: Start: 11-12-2021 Adult depression scr eening assessment Clayton Granados ALARM SIGNALER.MANAGER CLINICAL RESEARCH Work Phone: Start: 10-26-2021 Adult depression scr eening assessment Xochilt Gaston ALARM SIGNALER.MANAGER CLINICAL RESEARCH Work Phone: Start: 08-27-2021 Adult depression scr eening assessment Room Emergency Start: 03-12-2021 Radiologic exam knee complete 4/more views Herbert Izquierdo MD Work Phone: H/O: surgery S/P exploratory laparotomy Intestinal Trans Coord Main Work Phone: H/O: surgery S/P exploratory laparotomy Kirit Devine MD Work Phone: Plan of Treatment Date Care Activity Detail Author Start: 05-21-2029 Urine microalbumin profile [facility] Start: 01-28-2026 Annual PCP Team Chronic Disease Visit Annual PCP Team Chronic Disease Visit [facility] Start: 01-10-2026 Annual PCP Team Chronic Disease Visit Annual PCP Team Chronic Disease Visit [facility] Start: 01-10-2026 Depression Screening Depression Screening [facility] Start: 11-29-2025 Hepatitis B screening Urine Albumin:Creatinine Ratio [facility] Start: 09-08-2025 PAP TESTING PAP TESTING [facility] Start: 08-27-2025 Diabetic foot examination Diabetic Foot Exam [facility] Start: 08-20-2025 Hepatitis B surface antibody level LDL Cholesterol [facility] Start: 08-16-2025 Annual PCP Team Chronic Disease Visit Annual PCP Team Chronic Disease Visit [facility] Start: 08-07-2025 Hepatitis B Vaccine (1 of 3 - 19+ 3-dose series) Hepatitis B Vaccine (1 of 3 - 19+ 3-dose series) [facility] Comment on above: Postponed from 09/08/2002 (Declined at t his time) Start: 08-07-2025 HIV screening HIV Screening [facility] Comment on above: Postponed from 09/08/2001 (Declined at t his time) Start: 08-07-2025 Pneumococcal vaccination Pneumococcal Vaccine (1 of 2 - PCV) [facility] Comment on above: Postponed from 09/08/2002 (Declined at t his time) Start: 08-07-2025 Screening for malignant neoplasm of breast Mammogram Screening [facility] Comment on above: Postponed from 2023 (Declined at t his time) Start: 03-26-2025 End: 03-26-2025 Patient encounter procedure 03/26/2025 2:30 PM EDT Office Visit Vascular Surg Dept [address] [place] [address] Aleja Goncalves MD [address] [facility] [address] [place] [address] Arterial occlusion Vascular Surg Dept Comment on above: Arterial occlusion Start: 03-26-2025 End: 03-26-2025 Patient encounter procedure Vascular Surgery Comment on above: Arterial occlusion Start: 03-04-2025 End: 03-04-2025 ambulatory 03/04/2025 2:00 PM EDT [facility] Psychiatry [address] [place] [address] Clayton Granados, ALARM SIGNALER.MANAGER CLINICAL RESEARCH [address] [place] [address] Psychiatry Start: 02-28-2025 End: 02-28-2025 Patient encounter procedure 02/28/2025 1:00 PM EDT Office Visit Family [facility] [address] [place], [place] [phone] Ed Thomas, ALARM SIGNALER.MANAGER CLINICAL RESEARCH [address] [place], [place] [phone] 1 month f/up [facility] Comment on above: 1 month f/up Start: 02-27-2025 End: 02-27-2025 Patient encounter procedure 02/27/2025 11:15 AM EDT Office Visit Vascular Medicine [address] [place] [address] Akua Grigsby MD [address] [place] [address] SMA thrombosis Vascular Medicine Comment on above: SMA thrombosis Start: 02-15-2025 End: 02-15-2025 Follow-up encounter 02/15/2025 11:30 AM EDT [facility] Psychiatry [address] [place] [phone] Clayton Granados ALARM SIGNALER.MANAGER CLINICAL RESEARCH [address] [place] [id number] Follow up appointment Psychiatry Comment on above: Follow up appointment Start: 02-04-2025 Hemoglobin A1c measurement HbA1C [facility] Start: 01-28-2025 End: 01-28-2025 Patient encounter procedure 01/28/2025 2:20 PM EDT Office Visit [facility] [address] [place], [place] [phone] Ed Thomas, ALARM SIGNALER.MANAGER CLINICAL RESEARCH [address] [place], [place] [phone] Blood thinner [facility] Comment on above: Blood thinner Start: 01-28-2025 End: 04-29-2025 CBC panel - Blood by Automated count [facility] Comment on above: Expected: 01/28/2025, Expires: Start: 01-28-2025 End: 04-29-2025 Comprehensive metabolic 2000 panel - Serum or Plasma [facility] Work Phone: Comment on above: Expected: 01/28/2025, Expires: Start: 01-28-2025 End: 04-29-2025 PT panel - Platelet poor plasma by Coagulation assay PROTHROMBIN TIME Lab Routine 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) Expected: 01/28/2025, Expires: 04/29/2025 [facility] Work Phone: Comment on above: Expected: 01/28/2025, Expires: Start: 01-22-2025 End: 01-22-2025 Patient encounter procedure [facility] [place] Comment on above: 1 week f/up Start: 01-14-2025 End: 04-15-2025 Basic metabolic 2000 panel - Serum or Plasma BASIC METABOLIC PANEL Lab Routine Hypokalemia Expected: 01/14/2025, Expires: 04/15/2025 [facility] Comment on above: Expected: 01/14/2025, Expires: Start: 01-14-2025 End: 04-15-2025 PT panel - Platelet poor plasma by Coagulation assay PROTHROMBIN TIME Lab Routine Blood thinned due to long-term anticoagulant use Expected: 01/14/2025, Expires: 04/15/2025 [facility] Work Phone: Comment on above: Expected: 01/14/2025, Expires: Start: 01-11-2025 End: 01-11-2025 Follow-up encounter 01/11/2025 3:00 PM EDT [facility] [address] [place] [address] Clayton Granaods, ALARM SIGNALER.MANAGER CLINICAL RESEARCH [address] [place] [address] Follow up appointment Psychiatry Comment on above: Follow up appointment Start: 01-10-2025 End: 01-10-2025 Patient encounter procedure 01/10/2025 2:00 PM EDT Office Visit Family Medicine [place] [address] [place], [place] [phone] Ed Thomas, ALARM SIGNALER.MANAGER CLINICAL RESEARCH [address] [place] [address] [phone] check up/pain (MyChart Request) [facility] [place] Comment on above: check up/pain (MyChart Request) Start: 01-08-2025 End: 01-08-2025 Patient encounter procedure Gastroenterology Comment on above: hpn page [id number] Start: 01-07-2025 End: 01-07-2025 Follow-up encounter 01/07/2025 2:00 PM EDT [facility] Psychiatry [address] [place] [phone] Clayton Granados, ALARM SIGNALER.MANAGER CLINICAL RESEARCH [address] [place] [phone] Follow up appointment Psychiatry Comment on above: Follow up appointment Start: 01-03-2025 End: 01-03-2025 Patient encounter procedure 01/03/2025 10:40 AM EDT Office Visit [facility] [address] [place], [place] [phone] Ed Thomas, ALARM SIGNALER.MANAGER CLINICAL RESEARCH [address] [place] [address] [phone] check up/pain (MyChart Request) [facility] [place] Comment on above: check up/pain (MyChart Request) Start: 01-01-2025 End: 01-01-2025 Patient encounter procedure 01/01/2025 9:00 AM EDT Office Visit Podiatry [address] [address] Suzanne Duval PA-C [address] [place] [address] DOS 12/03/2024 Podiatry Comment on above: DOS 12/03/2024 Start: 12-31-2024 End: 12-31-2024 Patient encounter procedure [facility] Medicine [place] Comment on above: med check follow up S/P exploratory lapa rotomy [Z98.890] Start: 11-22-2024 End: 11-22-2024 Patient encounter procedure Gastroenterology Comment on above: Please schedule with MAC sedation in Q3. SMA thrombosis with loss of bowel. Anatomy: Intact stomach and duodenum, 50cm jejunum to LLQ loop end jejunostomy, no ICV, long Sarai's pouch from ascending colon through rectum. Study is needed to determine anatomy and whether there are any abnormalities so a plan can be made for gut reconstruction. 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] Radiology Comment on above: Short bowel syndrome without colon in co ntinuity [K90.822] Start: 11-13-2024 End: 11-13-2024 Patient encounter procedure 11/13/2024 1:40 PM EDT Office Visit [facility] [address] [place], [place] [phone] Fredrick Boland DO [address] [place] [address] Follow up [facility] [place] Comment on above: Follow up Start: 11-08-2024 End: 11-08-2024 Patient encounter procedure 11/08/2024 9:40 AM EDT Appointment Radiology [address] [place] [address] 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] Radiology Comment on above: Short bowel syndrome without colon in co ntinuity [K90.822] Start: 11-05-2024 End: 11-05-2024 Patient encounter procedure 11/05/2024 7:30 AM EDT Appointment Radiology [address] [address] 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 Expected: 10/22/2024 (Approximate), Expires: 01/21/2025 [facility] Comment on above: Expected: 10/22/2024 (Approximate), Expi res: 01/21/2025 Start: 10-22-2024 End: 01-21-2025 Alpha tocopherol [Mass/volume] in Serum or Plasma VITAMIN E/TOCOPHEROL Lab STAT 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 Expected: 10/22/2024 (Approximate), Expires: 01/21/2025 [facility] Comment on above: Expected: 10/22/2024 (Approximate), Expi res: 01/21/2025 Start: 10-22-2024 End: 01-21-2025 AMINO ACIDS, PLASMA W/ CONSULTATION AMINO ACIDS, PLASMA W/ CONSULTATION Lab STAT 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 Expected: 10/22/2024 (Approximate), Expires: 01/21/2025 [facility] Comment on above: Expected: 10/22/2024 (Approximate), Expi res: 01/21/2025 Start: 10-22-2024 End: 01-21-2025 APC RESISTANCE APC RESISTANCE Lab STAT 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 Expected: 10/22/2024 (Approximate), Expires: 01/21/2025 [facility] Comment on above: Expected: 10/22/2024 (Approximate), Expi res: 01/21/2025 Start: 10-22-2024 End: 01-21-2025 aPTT in Platelet poor plasma by Coagulation assay ACTIVATED PARTIAL THROMBOPLASTIN TIME Lab STAT 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 Expected: 10/22/2024 (Approximate), Expires: 01/21/2025 [facility] Comment on above: Expected: 10/22/2024 (Approximate), Expi res: 01/21/2025 Start: 10-22-2024 End: 01-21-2025 Ascorbate [Mass/volume] in Serum or Plasma VITAMIN C Lab STAT 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 Expected: 10/22/2024 (Approximate), Expires: 01/21/2025 [facility] Comment on above: Expected: 10/22/2024 (Approximate), Expi res: 01/21/2025 Start: 10-22-2024 End: 01-21-2025 CBC W Auto Differential panel - Blood COMPLETE BLOOD COUNT AND DIFFERENTIAL Lab STAT 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 Expected: 10/22/2024 (Approximate), Expires: 01/21/2025 [facility] Comment on above: Expected: 10/22/2024 (Approximate), Expi res: 01/21/2025 Start: 10-22-2024 End: 01-21-2025 Cobalamin (Vitamin B12) [Mass/volume] in Serum or Plasma VITAMIN B12 Lab STAT 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 Expected: 10/22/2024 (Approximate), Expires: 01/21/2025 [facility] Comment on above: Expected: 10/22/2024 (Approximate), Expi res: 01/21/2025 Start: 10-22-2024 End: 01-21-2025 Comprehensive metabolic 2000 panel - Serum or Plasma COMPREHENSIVE METABOLIC PANEL Lab STAT 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 Expected: 10/22/2024 (Approximate), Expires: 01/21/2025 [facility] Comment on above: Expected: 10/22/2024 (Approximate), Expi res: 01/21/2025 Start: 10-22-2024 End: 01-21-2025 Ferritin [Mass/volume] in Serum or Plasma FERRITIN Lab STAT 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 Expected: 10/22/2024 (Approximate), Expires: 01/21/2025 [facility] Comment on above: Expected: 10/22/2024 (Approximate), Expi res: 01/21/2025 Start: 10-22-2024 End: 01-21-2025 Folate [Mass/volume] in Serum or Plasma FOLATE, SERUM Lab STAT 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 Expected: 10/22/2024 (Approximate), Expires: 01/21/2025 [facility] Comment on above: Expected: 10/22/2024 (Approximate), Expi res: 01/21/2025 Start: 10-22-2024 End: 01-21-2025 HYPERCOAG DIAG PNL HYPERCOAG DIAG PNL Lab STAT 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 Expected: 10/22/2024 (Approximate), Expires: 01/21/2025 [facility] Comment on above: Expected: 10/22/2024 (Approximate), Expi res: 01/21/2025 Start: 10-22-2024 End: 01-21-2025 Iron and Iron binding capacity panel - Serum or Plasma IRON AND TIBC Lab STAT 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 Expected: 10/22/2024 (Approximate), Expires: 01/21/2025 [facility] Comment on above: Expected: 10/22/2024 (Approximate), Expi res: 01/21/2025 Start: 10-22-2024 End: 01-21-2025 Magnesium [Mass/volume] in Serum or Plasma MAGNESIUM Lab STAT 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 Expected: 10/22/2024 (Approximate), Expires: 01/21/2025 [facility] Comment on above: Expected: 10/22/2024 (Approximate), Expi res: 01/21/2025 Start: 10-22-2024 End: 01-21-2025 Methylmalonate [Moles/volume] in Serum or Plasma METHYLMALONIC ACID Lab STAT 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 Expected: 10/22/2024 (Approximate), Expires: 01/21/2025 [facility] Comment on above: Expected: 10/22/2024 (Approximate), Expi res: 01/21/2025 Start: 10-22-2024 End: 01-21-2025 Niacin [Mass/volume] in Serum or Plasma VITAMIN B3/NIACIN Lab STAT 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 Expected: 10/22/2024 (Approximate), Expires: 01/21/2025 [facility] Comment on above: Expected: 10/22/2024 (Approximate), Expi res: 01/21/2025 Start: 10-22-2024 End: 01-21-2025 Parathyrin.intact [Mass/volume] in Serum or Plasma PTH INTACT Lab STAT 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 Expected: 10/22/2024 (Approximate), Expires: 01/21/2025 [facility] Comment on above: Expected: 10/22/2024 (Approximate), Expi res: 01/21/2025 Start: 10-22-2024 End: 01-21-2025 Phosphate [Mass/volume] in Serum or Plasma PHOSPHORUS INORGANIC Lab STAT 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 Expected: 10/22/2024 (Approximate), Expires: 01/21/2025 [facility] Comment on above: Expected: 10/22/2024 (Approximate), Expi res: 01/21/2025 Start: 10-22-2024 End: 01-21-2025 Prealbumin [Mass/volume] in Serum or Plasma PREALBUMIN Lab STAT 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 Expected: 10/22/2024 (Approximate), Expires: 01/21/2025 [facility] Comment on above: Expected: 10/22/2024 (Approximate), Expi res: 01/21/2025 Start: 10-22-2024 End: 01-21-2025 PT panel - Platelet poor plasma by Coagulation assay PROTHROMBIN TIME Lab STAT 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 Expected: 10/22/2024 (Approximate), Expires: 01/21/2025 [facility] Comment on above: Expected: 10/22/2024 (Approximate), Expi res: 01/21/2025 Start: 10-22-2024 End: 01-21-2025 Pyridoxine [Mass/volume] in Serum or Plasma VITAMIN B6/PYRIDOXIN Lab STAT 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 Expected: 10/22/2024 (Approximate), Expires: 01/21/2025 [facility] Comment on above: Expected: 10/22/2024 (Approximate), Expi res: 01/21/2025 Start: 10-22-2024 End: 01-21-2025 Retinol [Mass/volume] in Serum or Plasma VITAMIN A/RETINOL Lab STAT 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 Expected: 10/22/2024 (Approximate), Expires: 01/21/2025 [facility] Comment on above: Expected: 10/22/2024 (Approximate), Expi res: 01/21/2025 Start: 10-22-2024 End: 01-21-2025 Thyrotropin [Units/volume] in Serum or Plasma THYROID STIMULATING HORMONE Lab STAT 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 Expected: 10/22/2024 (Approximate), Expires: 01/21/2025 [facility] Comment on above: Expected: 10/22/2024 (Approximate), Expi res: 01/21/2025 Start: 10-22-2024 End: 01-21-2025 TOXICOLOGY PANEL BLD TOXICOLOGY PANEL BLD Lab STAT 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 Expected: 10/22/2024 (Approximate), Expires: 01/21/2025 [facility] Comment on above: Expected: 10/22/2024 (Approximate), Expi res: 01/21/2025 Start: 10-22-2024 End: 01-21-2025 TRACE ELEMENTS/TPN TRACE ELEMENTS/TPN Lab STAT 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 Expected: 10/22/2024 (Approximate), Expires: 01/21/2025 [facility] Comment on above: Expected: 10/22/2024 (Approximate), Expi res: 01/21/2025 Start: 10-22-2024 End: 01-21-2025 TYPE + SCREEN TYPE + SCREEN Blood Bank STAT 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 Expected: 10/22/2024 (Approximate), Expires: 01/21/2025 [facility] Work Phone: Comment on above: Expected: 10/22/2024 (Approximate), Expi res: 01/21/2025 Start: 10-22-2024 End: 10-22-2024 Patient encounter procedure 10/22/2024 11:00 AM EDT Office Visit Vascular Medicine [address] [place] [address] Akua Grigsby MD [address] [place] [address] 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 Comment on above: DX: SMA and leg arterial thrombosis Start: 10-17-2024 End: 10-17-2024 Patient encounter procedure General Surgery Comment on above: post op [facility] Start: 10-11-2024 End: 01-10-2025 TOXICOLOGY SCREEN, ROUTINE URINE TOXICOLOGY SCREEN, ROUTINE URINE Lab Routine 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 Expected: 10/11/2024, Expires: 01/10/2025 [facility] Comment on above: Expected: 10/11/2024, Expires: Start: 10-10-2024 End: 10-10-2024 Patient encounter procedure 10/10/2024 12:15 PM EDT Office Visit General Surgery [address] [address] Peter Smith MD [address] [place] [address] post op ACS General Surgery Comment on above: post op ACS Start: 10-06-2024 End: 01-05-2025 CBC W Auto Differential panel - Blood COMPLETE BLOOD COUNT AND DIFFERENTIAL Lab Routine Anemia, unspecified type Expected: 10/06/2024, Expires: 01/05/2025 [facility] Comment on above: Expected: 10/06/2024, Expires: Start: 10-06-2024 End: 01-05-2025 Iron and Iron binding capacity panel - Serum or Plasma IRON AND TIBC Lab Routine Anemia, unspecified type Expected: 10/06/2024, Expires: 01/05/2025 [facility] Work Phone: Comment on above: Expected: 10/06/2024, Expires: Start: 10-02-2024 End: 10-02-2024 ambulatory 10/02/2024 3:00 PM EDT Visit (SP) Office Hematology/Oncology [address] [place] [address] Martín Ballesteros DO [address] [place], [place] [id number] 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 Comment on above: 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: Start: 10-02-2024 End: 01-01-2025 B 2 GPI IGG & IGM [facility] Comment on above: Expected: 10/02/2024, Expires: Start: 10-02-2024 End: 01-01-2025 Cardiolipin IgG and IgM panel - Serum [facility] Comment on above: Expected: 10/02/2024, Expires: Start: 10-02-2024 End: 01-01-2025 Ferritin [Mass/volume] in Serum or Plasma [facility] Comment on above: Expected: 10/02/2024, Expires: Start: 10-02-2024 End: 01-01-2025 Iron and Iron binding capacity panel - Serum or Plasma [facility] Comment on above: Expected: 10/02/2024, Expires: Start: 10-02-2024 End: 01-01-2025 MONOCLONAL PROTEIN, SERUM (BLOOD) [facility] Work Phone: Comment on above: Expected: 10/02/2024, Expires: Start: 10-02-2024 End: 01-01-2025 PROTEIN C FUNCT [facility] Comment on above: Expected: 10/02/2024, Expires: Start: 10-02-2024 End: 01-01-2025 PROTEIN ELECTROPHORESIS SERUM W/INTERP [facility] Comment on above: Expected: 10/02/2024, Expires: Start: 10-02-2024 End: 01-01-2025 PROTEIN S CLOTTABLE [facility] Comment on above: Expected: 10/02/2024 (Approximate), Expi res: 01/01/2025 Start: 10-02-2024 End: 01-01-2025 PROTEIN S IMMUNO [facility] Comment on above: Expected: 10/02/2024, Expires: Start: 10-02-2024 End: 01-01-2025 Transferrin receptor.soluble [Mass/volume] in Serum or Plasma [facility] Comment on above: Expected: 10/02/2024, Expires: Start: 10-01-2024 End: 10-01-2024 Patient encounter procedure 10/01/2024 11:00 AM EDT Office Visit Vascular Medicine [address] [place] [address] Akua Grigsby MD [address] [place] [address] 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 Comment on above: DX: SMA and leg arterial thrombosis Start: 09-19-2024 End: 09-19-2024 Patient encounter procedure Vascular Surgery Comment on above: Hospital FU DX:SMA occlusion Start: 09-10-2024 End: 09-10-2024 Follow-up encounter 09/10/2024 2:00 PM EDT [facility] Psych[facility]ry [address] [place] [address] Clayton Granados, ALARM SIGNALER.MANAGER CLINICAL RESEARCH [address] [place] [address] Follow up Psychiatry Comment on above: Follow up Start: 08-20-2024 End: 08-20-2024 Laps abd prtm&omentum dx w/wo spec br/wa spx LAPAROSCOPY DIAGNOSTIC Aortic mural thrombus (HCC) 08/20/2024 12:41 PM EST [facility] Start: 08-20-2024 End: 08-20-2024 Slctv cathj 2nd order abdl pel/lxtr art brnch ANGIOGRAM MESENTERIC Aortic mural thrombus (HCC) 08/20/2024 12:41 PM EST [facility] Start: 06-25-2024 End: 06-25-2024 Patient encounter procedure 06/25/2024 11:00 AM EST Office Visit Family [facility] [address] [place], [place] [phone] Yesenia Rangel, ALARM SIGNALER.MANAGER CLINICAL RESEARCH [address] [place], [place] [id number] physical Family Medicine [place] Comment on above: physical Start: 05-18-2024 End: 05-18-2024 ambulatory 05/18/2024 2:00 PM EST [facility] [address] [place] [phone] Clayton Granados, ALARM SIGNALER.MANAGER CLINICAL RESEARCH [address] [place] [phone] med check Psychiatry Comment on above: med check Start: 05-18-2024 End: 08-17-2024 BENZO CONFIRM, URINE BENZO CONFIRM, URINE Lab Routine Encounter for long-term (current) use of medications Expected: 05/18/2024, Expires: 08/17/2024 [facility] Comment on above: Expected: 05/18/2024, Expires: Start: 05-18-2024 End: 08-17-2024 CBC W Auto Differential panel - Blood COMPLETE BLOOD COUNT AND DIFFERENTIAL Lab Routine Encounter for long-term (current) use of medications Expected: 05/18/2024, Expires: 08/17/2024 [facility] Comment on above: Expected: 05/18/2024, Expires: Start: 05-18-2024 End: 08-17-2024 Comprehensive metabolic 2000 panel - Serum or Plasma COMPREHENSIVE METABOLIC PANEL Lab Routine Encounter for long-term (current) use of medications Expected: 05/18/2024, Expires: 08/17/2024 [facility] Work Phone: Comment on above: Expected: 05/18/2024, Expires: Start: 05-18-2024 End: 08-17-2024 Hemoglobin A1c in Blood HEMOGLOBIN A1C Lab Routine Encounter for long-term (current) use of medications Expected: 05/18/2024, Expires: 08/17/2024 [facility] Comment on above: Expected: 05/18/2024, Expires: Start: 05-18-2024 End: 08-17-2024 Lipid 1996 panel - Serum or Plasma LIPID PANEL BASIC Lab Routine Encounter for long-term (current) use of medications Expected: 05/18/2024, Expires: 08/17/2024 [facility] Comment on above: Expected: 05/18/2024, Expires: Start: 05-18-2024 End: 08-17-2024 PHOSPHATIDYLETHANOL (PETH) PHOSPHATIDYLETHANOL (PETH) Lab Routine Encounter for long-term (current) use of medications Expected: 05/18/2024, Expires: 08/17/2024 [facility] Comment on above: Expected: 05/18/2024, Expires: Start: 05-18-2024 End: 08-17-2024 Thyrotropin [Units/volume] in Serum or Plasma THYROID STIMULATING HORMONE Lab Routine Encounter for long-term (current) use of medications Expected: 05/18/2024, Expires: 08/17/2024 [facility] Comment on above: Expected: 05/18/2024, Expires: Start: 05-18-2024 End: 08-17-2024 TOXICOLOGY SCREEN, ROUTINE URINE TOXICOLOGY SCREEN, ROUTINE URINE Lab Routine Encounter for long-term (current) use of medications Expected: 05/18/2024, Expires: 08/17/2024 [facility] Comment on above: Expected: 05/18/2024, Expires: Start: 03-03-2024 End: 03-03-2024 Follow-up encounter 03/03/2024 1:00 PM EDT Distance Health Psychiatry [address] [facility] [place] [phone] Clayton Granados, ALARM SIGNALER.MANAGER CLINICAL RESEARCH [address] [place] [phone] Follow up Psychiatry Comment on above: Follow up Start: 02-26-2024 Covid-19 Vaccine ( season) Covid-19 Vaccine () [facility] Start: 02-26-2024 Covid-19 Vaccine () Covid-19 Vaccine () [facility] Start: 02-26-2024 Influenza vaccination [facility] Start: 01-19-2024 End: 01-19-2024 Follow-up encounter 01/19/2024 9:00 AM EDT Distance Health Psychiatry [address] [facility] [place] [phone] Clayton Granados, ALARM SIGNALER.MANAGER CLINICAL RESEARCH [address] [facility] [place] [address] Follow up Psychiatry Comment on above: Follow up Start: 12-30-2023 End: 12-30-2023 Follow-up encounter 12/30/2023 2:00 PM EDT Distance Health Psychiatry [address] [facility] [place] [address] Clayton Granados, ALARM SIGNALER.MANAGER CLINICAL RESEARCH [address] [facility] [place] [phone] FOLLOW UP Psychiatry Comment on above: FOLLOW UP Start: 10-28-2023 End: 10-28-2023 Patient encounter procedure 10/28/2023 8:20 AM EDT Office Visit [facility] Medicine [place] [address] [facility] [place] [phone] Fredrick Boland, [address] [facility] [place] [address] missing periods Family Medicine [place] Comment on above: missing periods Start: 2023 Screening for malignant neoplasm of breast Mammogram Screening [facility] Start: 09-08-2023 End: 12-08-2023 TOX SCREEN ROUT UR TOX SCREEN ROUT UR Lab Routine Encounter for long-term (current) use of medications History of marijuana use Expected: 09/08/2023, Expires: 12/08/2023 [facility] Work Phone: Comment on above: Expected: 09/08/2023, Expires: 4 Start: 09-02-2023 End: 12-02-2023 Comprehensive metabolic 2000 panel - Serum or Plasma COMP METABOLIC PANEL Lab Routine Encounter for long-term (current) use of medications Expected: 09/02/2023, Expires: 12/02/2023 [facility] Work Phone: Comment on above: Expected: 09/02/2023, Expires: 4 Start: 09-02-2023 End: 12-02-2023 Hemoglobin A1c in Blood HGB A1C Lab Routine Encounter for long-term (current) use of medications Expected: 09/02/2023, Expires: 12/02/2023 [facility] Work Phone: Comment on above: Expected: 09/02/2023, Expires: Start: 09-02-2023 End: 12-02-2023 Lipid 1996 panel - Serum or Plasma LIPID PANEL BASIC Lab Routine Encounter for long-term (current) use of medications Expected: 09/02/2023, Expires: 12/02/2023 [facility] Work Phone: Comment on above: Expected: 09/02/2023, Expires: Start: 07-12-2023 HPV TESTING HPV TESTING [facility] Start: 07-12-2023 PAP TESTING PAP TESTING [facility] Start: 07-12-2023 Screening for malignant neoplasm of cervix [facility] Start: 06-27-2023 Depression Assessment Depression Assessment [facility] Start: 05-16-2023 End: 08-15-2023 Comprehensive metabolic 2000 panel - Serum or Plasma COMP METABOLIC PANEL Lab Routine Encounter for long-term (current) use of medications Expected: 05/16/2023, Expires: 08/15/2023 [facility] Work Phone: Comment on above: Expected: 05/16/2023, Expires: 4 Start: 05-16-2023 End: 08-15-2023 Hemoglobin A1c in Blood HGB A1C Lab Routine Encounter for long-term (current) use of medications Expected: 05/16/2023, Expires: 08/15/2023 [facility] Work Phone: Comment on above: Expected: 05/16/2023, Expires: 4 Start: 05-16-2023 End: 08-15-2023 Lipid 1996 panel - Serum or Plasma LIPID PANEL BASIC Lab Routine Encounter for long-term (current) use of medications Expected: 05/16/2023, Expires: 08/15/2023 [facility] Work Phone: Comment on above: Expected: 05/16/2023, Expires: 4 Start: 03-04-2023 Adult depression screening assessment DEPRESSION SCREENING [facility] Start: 02-25-2023 Covid-19 Vaccine ( season) Covid-19 Vaccine ( season) [facility] Start: 02-25-2023 Influenza vaccination [facility] Start: 01-27-2023 Adult depression screening assessment DEPRESSION SCREENING [facility] Start: 12-24-2022 Influenza vaccination INFLUENZA (#1) [facility] Comment on above: Postponed from 02/25/2022 (Declined at t his time) Start: 12-23-2022 Adult depression screening assessment DEPRESSION SCREENING [facility] Start: 11-12-2022 Adult depression screening assessment DEPRESSION SCREENING [facility] Start: 10-28-2022 End: 12-28-2022 TOX SCREEN ROUT UR TOX SCREEN ROUT UR Lab Routine History of marijuana use Expected: 10/28/2022, Expires: 12/28/2022 [facility] Work Phone: Comment on above: Expected: 10/28/2022, Expires: 3 Start: 10-26-2022 Adult depression screening assessment DEPRESSION SCREENING [facility] Start: 09-30-2022 End: 11-30-2022 Basic metabolic 2000 panel - Serum or Plasma [facility] Work Phone: Comment on above: Expected: 09/30/2022, Expires: 3 Start: 09-30-2022 End: 11-30-2022 Choriogonadotropin ( test) [Presence] in Urine [facility] Work Phone: Comment on above: Expected: 09/30/2022, Expires: 3 Start: 09-30-2022 End: 11-30-2022 ETHYL GLUCURONIDE UR SCR [facility] Work Phone: Comment on above: Expected: 09/30/2022, Expires: 3 Start: 09-30-2022 End: 11-30-2022 TOX SCREEN ROUT UR [facility] Work Phone: Comment on above: Expected: 09/30/2022, Expires: 3 Start: 08-27-2022 Adult depression screening assessment DEPRESSION SCREENING [facility] Start: 07-20-2022 COVID-19 VACCINE (#1) COVID-19 VACCINE (#1) [facility] Comment on above: Postponed from 09/08/1988 (Declined at t his time) Postponed from 03/11 (Declined at this time) Start: 07-20-2022 COVID-19 VACCINE (1) COVID-19 VACCINE (1) [facility] Comment on above: Postponed from 09/08/1988 (Declined at t his time) Start: 07-05-2022 End: 09-04-2022 TOX SCREEN ROUT UR TOX SCREEN ROUT UR Lab Routine Marijuana use Expected: 07/05/2022, Expires: 09/04/2022 [facility] Work Phone: Comment on above: Expected: 07/05/2022, Expires: 3 Start: 06-27-2022 DEPRESSION ASSESSMENT DEPRESSION ASSESSMENT [facility] Start: 09-01-2022 Influenza vaccination [facility] Start: 02-02-2022 End: 04-04-2022 25-hydroxyvitamin D3 [Mass/volume] in Serum or Plasma VITAMIN D 25 HYDROXY Lab Routine Fatigue, unspecified type Myalgia Expected: 02/02/2022, Expires: 04/04/2022 [facility] Work Phone: Comment on above: Expected: 02/02/2022, Expires: 2 Start: 02-02-2022 End: 04-04-2022 C reactive protein [Mass/volume] in Serum or Plasma C-REACTIVE PROTEIN (CRP) Lab Routine Bilateral hand pain Foot pain, bilateral Expected: 02/02/2022, Expires: 04/04/2022 [facility] Work Phone: Comment on above: Expected: 02/02/2022, Expires: 2 Start: 02-02-2022 End: 04-04-2022 CBC W Auto Differential panel - Blood CBC + DIFF Lab Routine Fatigue, unspecified type Myalgia Expected: 02/02/2022, Expires: 04/04/2022 [facility] Work Phone: Comment on above: Expected: 02/02/2022, Expires: 2 Start: 02-02-2022 End: 04-04-2022 Cobalamin (Vitamin B12) [Mass/volume] in Serum or Plasma VITAMIN B12 BLOOD Lab Routine Fatigue, unspecified type Myalgia Expected: 02/02/2022, Expires: 04/04/2022 [facility] Work Phone: Comment on above: Expected: 02/02/2022, Expires: 2 Start: 02-02-2022 End: 04-04-2022 Comprehensive metabolic 2000 panel - Serum or Plasma COMP METABOLIC PANEL Lab Routine Fatigue, unspecified type Myalgia Expected: 02/02/2022, Expires: 04/04/2022 [facility] Work Phone: Comment on above: Expected: 02/02/2022, Expires: 2 Start: 02-02-2022 End: 04-04-2022 Cyclic citrullinated peptide IgG Ab [Units/volume] in Serum or Plasma CCP ANTIBODY IGG Lab Routine Bilateral hand pain Foot pain, bilateral Expected: 02/02/2022, Expires: 04/04/2022 [facility] Work Phone: Comment on above: Expected: 02/02/2022, Expires: 2 Start: 02-02-2022 End: 04-04-2022 Erythrocyte sedimentation rate SED RATE WESTERGREN Lab Routine Bilateral hand pain Foot pain, bilateral Expected: 02/02/2022, Expires: 04/04/2022 [facility] Work Phone: Comment on above: Expected: 02/02/2022, Expires: 2 Start: 02-02-2022 End: 04-04-2022 Extractable nuclear Ab panel - Serum ANTI ABIGAIL ID Lab Routine Bilateral hand pain Foot pain, bilateral Expected: 02/02/2022, Expires: 04/04/2022 [facility] Work Phone: Comment on above: Expected: 02/02/2022, Expires: 2 Start: 02-02-2022 End: 04-04-2022 Ferritin [Mass/volume] in Serum or Plasma FERRITIN BLD Lab Routine Myalgia Iron deficiency Expected: 02/02/2022, Expires: 04/04/2022 [facility] Work Phone: Comment on above: Expected: 02/02/2022, Expires: 2 Start: 02-02-2022 End: 04-04-2022 Iron and Iron binding capacity panel - Serum or Plasma IRON + TIBC Lab Routine Myalgia Iron deficiency Expected: 02/02/2022, Expires: 04/04/2022 [facility] Work Phone: Comment on above: Expected: 02/02/2022, Expires: 2 Start: 02-02-2022 End: 04-04-2022 Magnesium [Mass/volume] in Serum or Plasma MAGNESIUM BLD Lab Routine Bilateral hand pain Foot pain, bilateral Expected: 02/02/2022, Expires: 04/04/2022 [facility] Work Phone: Comment on above: Expected: 02/02/2022, Expires: 2 Start: 02-02-2022 End: 04-04-2022 Nuclear Ab [Presence] in Serum by Immunoassay ROBERTA BLOOD Lab Routine Bilateral hand pain Foot pain, bilateral Expected: 02/02/2022, Expires: 04/04/2022 [facility] Work Phone: Comment on above: Expected: 02/02/2022, Expires: 2 Start: 02-02-2022 End: 04-04-2022 Rheumatoid factor [Units/volume] in Serum or Plasma RHEUMATOID FACTOR BL Lab Routine Bilateral hand pain Foot pain, bilateral Expected: 02/02/2022, Expires: 04/04/2022 [facility] Work Phone: Comment on above: Expected: 02/02/2022, Expires: 2 Start: 01-11-2022 End: 03-13-2022 TOX SCREEN ROUT UR TOX SCREEN ROUT UR Lab Routine ELIJAH (generalized anxiety disorder) Expected: 01/11/2022, Expires: 03/13/2022 [facility] Work Phone: Comment on above: Expected: 01/11/2022, Expires: 2 Start: 10-27-2021 End: 12-27-2021 Comprehensive metabolic 2000 panel - Serum or Plasma COMP METABOLIC PANEL Lab Routine ELIJAH (generalized anxiety disorder) Bipolar 2 disorder (HCC) Expected: 10/27/2021, Expires: 12/27/2021 [facility] Work Phone: Comment on above: Expected: 10/27/2021, Expires: 2 Start: 10-27-2021 End: 12-27-2021 TOX SCREEN ROUT UR TOX SCREEN ROUT UR Lab Routine ELIJAH (generalized anxiety disorder) Bipolar 2 disorder (HCC) Expected: 10/27/2021, Expires: 12/27/2021 [facility] Work Phone: Comment on above: Expected: 10/27/2021, Expires: 2 Start: 09-08-2002 Hepatitis B Vaccine (1 of 3 - 19+ 3-dose series) Hepatitis B Vaccine (1 of 3 - 19+ 3-dose series) [facility] Start: 09-08-2002 ONE PNEUMOVAX PRIOR TO AGE 65 ONE PNEUMOVAX PRIOR TO AGE 65 [facility] Start: 09-08-2002 Pneumococcal vaccination Pneumococcal Vaccine (1 of 2 - PCV) [facility] Start: 09-08-2001 Depression Screening Depression Screening [facility] Start: 09-08-2001 HEPATITIS C SCREENING HEPATITIS C SCREENING [facility] Start: 09-08-2001 Hepatitis C screening Hepatitis C Screening [facility] Start: 09-08-2001 HIV SCREENING HIV SCREENING [facility] Start: 09-08-2001 HIV screening HIV Screening [facility] Start: 09-08-1993 Glaucoma screening Dilated Retinal Exam [facility] Start: 09-08-1993 Hepatitis B screening Urine Albumin:Creatinine Ratio [facility] Start: 09-08-1989 PNEUMOCOCCAL (1 - PCV) PNEUMOCOCCAL (1 - PCV) [facility] Start: 09-08-1989 [facility] Start: 03-11-1984 COVID-19 VACCINE (#1) COVID-19 VACCINE (#1) [facility] Start: 1985 HEPATITIS B (1 of 3 - 3-dose series) HEPATITIS B (1 of 3 - 3-dose series) [facility] Start: 1985 Hepatitis B Vaccine (1 of 3 - 3-dose series) Hepatitis B Vaccine (1 of 3 - 3-dose series) [facility] BETA 2 GLYCOPROTEIN, IGG BETA 2 GLYCOPROTEIN, IGG Lab Routine Antiphospholipid antibody syndrome (HCC) Superior mesenteric artery thrombosis (HCC) 10/02/2024 3:47 PM EDT [facility] BETA 2 GLYCOPROTEIN, IGM BETA 2 GLYCOPROTEIN, IGM Lab Routine Antiphospholipid antibody syndrome (HCC) Superior mesenteric artery thrombosis (HCC) 10/02/2024 3:47 PM EDT [facility] Cardiolipin IgA Ab [Units/volume] in Serum by Immunoassay CARDIOLIPIN IGA ABS Lab Routine Antiphospholipid antibody syndrome (HCC) Superior mesenteric artery thrombosis (HCC) 10/02/2024 3:47 PM EDT [facility] CARDIOLIPIN IGG ABS CARDIOLIPIN IGG ABS Lab Routine Antiphospholipid antibody syndrome (HCC) Superior mesenteric artery thrombosis (HCC) 10/02/2024 3:47 PM EDT [facility] CARDIOLIPIN IGM ABS CARDIOLIPIN IGM ABS Lab Routine Antiphospholipid antibody syndrome (HCC) Superior mesenteric artery thrombosis (HCC) 10/02/2024 3:47 PM EDT [facility] End: 11-10-2025 CT Chest W contrast IV CT CHEST W IVCON Radiology Routine Disorder of artery or arteriole 1 Occurrences starting 10/11/2024 until 11/10/2025 [facility] Comment on above: 1 Occurrences starting 10/11/2024 until 11/10/2025 End: 12-24-2022 ECG COMPLETE ECG COMPLETE ECG Routine ELIJAH (generalized anxiety disorder) 1 Occurrences starting 12/24/2021 until 12/24/2022 [facility] Work Phone: Comment on above: 1 Occurrences starting 12/24/2021 until 12/24/2022 End: 03-14-2024 ECG COMPLETE ECG COMPLETE ECG Routine Encounter for long-term (current) use of medications 1 Occurrences starting 03/14/2023 until 03/14/2024 [facility] Work Phone: Comment on above: 1 Occurrences starting 03/14/2023 until 03/14/2024 End: 05-18-2025 ECG COMPLETE ECG COMPLETE ECG Routine Encounter for long-term (current) use of medications 1 Occurrences starting 05/18/2024 until 05/18/2025 [facility] Comment on above: 1 Occurrences starting 05/18/2024 until 05/18/2025 ECG COMPLETE ECG COMPLETE ECG Routine Medication management Ordered: 08/07/2024 [facility] Work Phone: Comment on above: Ordered: 08/07/2024 End: 10-11-2025 EGD DIAGNOSTIC EGD DIAGNOSTIC Endoscopy Routine 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 1 Occurrences starting 10/11/2024 until 10/11/2025 [facility] Comment on above: 1 Occurrences starting 10/11/2024 until 10/11/2025 End: 10-11-2025 Flexible sigmoidoscopy study COLONOSCOPY DIAGNOSTIC Endoscopy Routine 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 1 Occurrences starting 10/11/2024 until 10/11/2025 [facility] Comment on above: 1 Occurrences starting 10/11/2024 until 10/11/2025 IMMUNOFIXATION SCREE N, SERUM IMMUNOFIXATION SCREEN, SERUM Lab Routine Antiphospholipid antibody syndrome (HCC) Superior mesenteric artery thrombosis (HCC) 10/02/2024 3:47 PM EDT [facility] KAPPA/JULIAN,FREE,SER KAPPA/JULIAN,F REE,SER Lab Routine Antiphospholipid antibody syndrome (HCC) Superior mesenteric artery thrombosis (HCC) 10/02/2024 3:47 PM EDT [facility] End: 11-17-2024 MG Breast Screening MILO SCREENING Radiology Routine Encounter for screening mammogram for breast cancer 1 Occurrences starting 10/19/2023 until 11/17/2024 [facility] Work Phone: Comment on above: 1 Occurrences starting 10/19/2023 until 11/17/2024 Protein [Mass/volume ] in Serum or Plasma PROTEIN, TOTAL Lab Routine Antiphospholipid antibody syndrome (HCC) Superior mesenteric artery thrombosis (HCC) 10/02/2024 3:47 PM EDT [facility] PROTEIN ELECTROPHORE SIS SERUM (P) PROTEIN ELECTROPHORESIS SERUM (P) Lab Routine Antiphospholipid antibody syndrome (HCC) Superior mesenteric artery thrombosis (HCC) 10/02/2024 3:47 PM EDT [facility] End: 11-10-2025 RF Colon Views W barium contrast WI XR COLON SINGLE CONTRAST Radiology Routine 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 1 Occurrences starting 10/11/2024 until 11/10/2025 [facility] Comment on above: 1 Occurrences starting 10/11/2024 until 11/10/2025 End: 11-10-2025 RF Gastrointestinal tract upper Views W barium contrast PO XR UPPER GI SINGLE CONTRAST Radiology Routine 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 1 Occurrences starting 10/11/2024 until 11/10/2025 [facility] Comment on above: 1 Occurrences starting 10/11/2024 until 11/10/2025 End: 09-11-2025 US Lower extremity artery - bilateral [facility] Work Phone: Comment on above: 1 Occurrences starting 09/11/2024 until 09/11/2025 End: 09-19-2025 Lower extremity artery - bilateral [facility] Work Phone: Comment on above: 1 Occurrences starting 09/19/2024 until 09/19/2025 End: 03-04-2023 XR FOOT GENERAL 3V AP/LAT/OBL BILATERAL XR FOOT GENERAL 3V AP/LAT/OBL BILATERAL Radiology Routine Foot pain, bilateral 1 Occurrences starting 02/02/2022 until 03/04/2023 [facility] Work Phone: Comment on above: 1 Occurrences starting 02/02/2022 until 03/04/2023 End: 11-10-2025 XR GI SMALL BOWEL FOLLOW-THRU XR GI SMALL BOWEL FOLLOW-THRU Radiology Routine 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 1 Occurrences starting 10/11/2024 until 11/10/2025 [facility] Comment on above: 1 Occurrences starting 10/11/2024 until 11/10/2025 End: 03-04-2023 XR HAND GENERAL 3V PA/LAT/OBL BILATERAL XR HAND GENERAL 3V PA/LAT/OBL BILATERAL Radiology Routine Bilateral hand pain 1 Occurrences starting 02/02/2022 until 03/04/2023 [facility] Work Phone: Comment on above: 1 Occurrences starting 02/02/2022 until 03/04/2023 [facility] Immunizations Immunization Date Immunization Notes Care Provider [facility] 05-21-2019 tetanus toxoid, redu leilani diphtheria toxoid, and acellular pertussis vaccine, adsorbed Room Emergency [facility] 07-12-2018 influenza virus vacc ine, unspecified formulation 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 2014 Medicaid [id number]. [id number] 1983 Unknown [id number] 2.16.840.1.789633.3.579.2.66 8 1983 Unknown [id number] 2.16.840.1.578688.3.579.2.65 1 1983 Unknown [id number] 2.16.840.1.170913.3.579.2.65 1 1983 Unknown [id number] 2.16.840.1.288528.3.579.2.65 1 1983 Unknown [id number] 2.16.840.1.761404.3.579.2.65 1 1983 Unknown [id number] 2.16.840.1.622163.3.579.2.65 1 Unknown [id number] 2.16.840.1.483246.3.579.2.46 2 Unknown [id number] 2.16.840.1.818161.3.579.2.46 2 Unknown [id number] 2.16.840.1.094624.3.579.2.46 2 Unknown [id number] 2.16.840.1.299969.3.579.2.46 2 Unknown [id number] 2.16.840.1.342931.3.579.2.46 2 Unknown [id number] 2.16.840.1.521991.3.579.2.46 2 Unknown [id number] 2.16.840.1.244621.3.579.2.46 2 Unknown [id number] 2.16.840.1.633302.3.579.2.46 2 Unknown [id number] 2.16.840.1.976936.3.579.2.46 2 Unknown [id number] 2.16.840.1.210257.3.579.2.46 2 Unknown [id number] 2.16.840.1.617958.3.579.2.46 2 Unknown [id number] 2.16.840.1.220985.3.579.2.46 2 Unknown [id number] 2.16.840.1.607195.3.579.2.46 2 Unknown [id number] 2.16.840.1.839574.3.579.2.46 2 Unknown [id number] 2.16.840.1.902509.3.579.2.46 2 Unknown [id number] 2.16.840.1.054196.3.579.2.46 2 Unknown [id number] 2.16.840.1.745772.3.579.2.46 2 Unknown [id number] 2.16.840.1.582247.3.579.2.46 2 Unknown [id number] 2.16.840.1.602750.3.579.2.46 2 Unknown [id number] 2.16.840.1.130478.3.579.2.46 2 Unknown [id number] 2.16.840.1.805816.3.579.2.46 2 Unknown [id number] 2.16.840.1.538654.3.579.2.46 2 Unknown [id number] 2.16.840.1.863119.3.579.2.46 2 Unknown [id number] 2.16.840.1.683276.3.579.2.46 2 Unknown [id number] 2.16.840.1.671124.3.579.2.46 2 Unknown [id number] 2.16.840.1.071808.3.579.2.46 2 Unknown [id number] 2.16.840.1.476706.3.579.2.46 2 Unknown [id number] 2.16.840.1.732482.3.579.2.46 2 Unknown [id number] 2.16.840.1.384021.3.579.2.46 2 Unknown [id number] 2.16.840.1.523522.3.579.2.46 2 Worker's Compensation Social History Date Type Detail Facility Start: 07-18-2019 End: 09-19-2024 Tobacco smoking status NHIS Smokes tobacco daily [facility] Work Phone: End: 04-13-2015 History of tobacco use Smoker [facility] Work Phone: Start: 07-18-2019 End: 10-02-2024 Tobacco use and exposure Smokeless tobacco non-user [facility] Work Phone: Start: 10-10-2021 End: 08-20-2024 Alcohol intake Current drinker of alcohol (finding) [facility] Start: 07-18-2021 History SDOH Alcohol Frequency 4 [facility] Start: 07-18-2021 End: 07-13-2022 History SDOH Alcohol Std Drinks 2 [facility] Start: 07-18-2021 End: 07-13-2022 History SDOH Social Connections Faith 1 [facility] Start: 07-18-2021 End: 07-13-2022 History SDOH Social Connections Living 7 [facility] Start: 07-18-2021 End: 07-13-2022 History SDOH Stress 5 [facility] Start: 11-07-2019 Education 21 [facility] Start: 1985 Sex Assigned At Not on file [facility] Start: 09-30-2021 End: 10-10-2021 Exposure to SARS-CoV-2 (event) Yes [facility] Start: 02-10-2021 End: 03-29-2022 Exposure to SARS-CoV-2 (event) Not sure [facility] End: 04-13-2015 History of tobacco use Cigarette Smoker [facility] Work Phone: Start: 07-13-2022 History SDOH Alcohol Std Drinks 0 [facility] Start: 07-13-2022 History SDOH Physica l Activity MPS 3 [facility] Start: 07-12-2022 End: 01-28-2025 History of Social function [facility] rachael Start: 07-12-2022 End: 01-28-2025 Social connection and isolation panel [facility] Do you belong to any clubs or organizations such as christianity groups, unions, fraternal or athletic groups, or school groups? No [facility] Are you now , , , , never or living with a partner? Never [facility] How often to you hav e a drink containing alcohol? Never [facility] How many standard dr inks containing alcohol do you have on a typical day? Patient does not drink [facility] How hard is it for y ou to pay for the very basics like food, housing, medical care, and heating Very hard [facility] Do you feel stress - tense, restless, nervous, or anxious, or unable to sleep at night because your mind is troubled all the time - these days [OSQ] Very much [facility] (I/We) worried wheth er (my/our) food would run out before (I/we) got money to buy more. Often true [facility] Are you now , , , , never or living with a partner? Living with partner [facility] How often to you hav e a drink containing alcohol? 2-4 times a month [facility] How many standard dr inks containing alcohol do you have on a typical day? 3 or 4 [facility] How often do you hav e 6 or more drinks on 1 occasion? Less than monthly [facility] How hard is it for y ou to pay for the very basics like food, housing, medical care, and heating Somewhat hard [facility] (I/We) worried wheth er (my/our) food would run out before (I/we) got money to buy more. Never true [facility] (I/We) worried wheth er (my/our) food would run out before (I/we) got money to buy more. Sometimes true [facility] Start: 09-19-2024 Tobacco Comment Pateint only u ses the Vape She doesnt smoke nicotine [facility] Start: 10-02-2024 Tobacco smoking stat us NHIS Ex-smoker [facility] Start: 10-02-2024 End: 01-28-2025 Alcoholic beverage intake Ex-drinker (finding) [facility] Start: 10-02-2024 Tobacco Comment Pateint only u ses the Vape She doesnt smoke nicotine Patient quit smoking 08/20/2024 [facility] Medical Equipment Procedure Code Equipment Code Equipment Origin al Text Equipment Identifier Dates Catheter Sampson Surecuff 9.6fr 3.2mm 1.6mm 2 Branch 90cm Central Venous 1 - [id number] Start: 08-26-2024 Tray Powerpicc 5 fr .018in Nitinol 70cm Catheter 2 Lumen Guidewire - [id number] Start: 12-08-2024 Goals Date Patient Goal Desired Activity /State Personal health goal Personal health goal Functional Status Date Assessment Result Facility 12-21-2024 Are you deaf, or do you have serious difficulty hearing No 12/21/2024 2:10 PM Morena Leggett, NATHANAEL No [facility] 12-21-2024 Are you blind, or do you have serious difficulty seeing, even when wearing glasses No 12/21/2024 2:10 PM Morena Leggett RN No [facility] 12-21-2024 Do you have serious difficulty walking or climbing stairs No 12/21/2024 2:10 PM Morena Leggett, NATHANAEL No [facility] 12-21-2024 Do you have difficul ty dressing or bathing No 12/21/2024 2:10 PM [place] Morena Toth, NATHANAEL No [facility] 12-21-2024 Because of a physica l, mental, or emotional condition, do you have difficulty doing errands alone such as visiting a physician's office or shopping No 12/21/2024 2:10 PM Morena Leggett RN No [facility] 10-26-2024 Are you deaf, or do you have serious difficulty hearing No 10/26/2024 4:40 PM Lyla Irvin, NATHANAEL No [facility] 10-26-2024 Are you blind, or do you have serious difficulty seeing, even when wearing glasses No 10/26/2024 4:40 PM Lyla Irvin, RN No [facility] 10-26-2024 Do you have serious difficulty walking or climbing stairs No 10/26/2024 4:40 PM EDT Lyla Sullivan, RN No [facility] 10-26-2024 Do you have difficul ty dressing or bathing No 10/26/2024 4:40 PM [place] Lyla Sullivan, RN No [facility] 10-26-2024 Because of a physica l, mental, or emotional condition, do you have difficulty doing errands alone such as visiting a physician's office or shopping No 10/26/2024 4:40 PM EDT Lyla Sullivan, RN No [facility] 09-03-2024 Are you deaf, or do you have serious difficulty hearing No 09/03/2024 8:13 PM Annabella Ramachandran, NATHANAEL No [facility] 09-03-2024 Are you blind, or do you have serious difficulty seeing, even when wearing glasses No 09/03/2024 8:13 PM Annabella Ramachandran, NATHANAEL No [facility] 09-03-2024 Do you have serious difficulty walking or climbing stairs No 09/03/2024 8:13 PM Annabella Ramachandran, NATHANAEL No [facility] 09-03-2024 Do you have difficul ty dressing or bathing No 09/03/2024 8:13 PM Annabella Ramachandran, NATHANAEL No [facility] 09-03-2024 Because of a physica l, mental, or emotional condition, do you have difficulty doing errands alone such as visiting a physician's office or shopping Yes 09/03/2024 8:13 PM Annabella Ramachandran, RN Yes [facility] 01-28-2015 Are you deaf, or do you have serious difficulty hearing No 01/28/2015 11:33 AM Jennifer Davis MA No [facility] 01-28-2015 Are you blind, or do you have serious difficulty seeing, even when wearing glasses No 01/28/2015 11:33 AM Jennifer Davis MA No [facility] 01-28-2015 Do you have serious difficulty walking or climbing stairs No 01/28/2015 11:33 AM Jennifer Davis MA No [facility] 01-28-2015 Do you have difficul ty dressing or bathing No 01/28/2015 11:33 AM Jennifer Davis MA No [facility] 01-28-2015 Because of a physica l, mental, or emotional condition, do you have difficulty doing errands alone such as visiting a physician's office or shopping No 01/28/2015 11:33 AM EDT Jennifer Hilliard MA No [facility] Mental Status Date Assessment Result Facility 12-21-2024 Because of a physica l, mental, or emotional condition, do you have serious difficulty concentrating, remembering, or making decisions No 12/21/2024 2:10 PM EDT Moerna Toth RN No [facility] 10-26-2024 Because of a physica l, mental, or emotional condition, do you have serious difficulty concentrating, remembering, or making decisions No 10/26/2024 4:40 PM EDT Lyla Sullivan RN No [facility] 09-03-2024 Because of a physica l, mental, or emotional condition, do you have serious difficulty concentrating, remembering, or making decisions No 09/03/2024 8:13 PM EDT Annabella Jarquin RN No [facility] 01-28-2015 Because of a physica l, mental, or emotional condition, do you have serious difficulty concentrating, remembering, or making decisions Yes 01/28/2015 11:33 AM EDT Jennifer Hilliard MA Yes [facility] Clinical Notes 11-22-2017 to 01-28-2025 Patient InstructionsEd Thomas APRN.CNP - 01/28/2025 2:26 PM EDTTelephone Encounter - Jigna Montalvo - 01/28/2025 12:18 PM EDTPatient InstructionsPatient InstructionsPatient Instructions Note Date & Type Note Facility 01-28-2025 Instructions Ed Thomas APRN.CNP - 01/28/2025 2:35 PM EDT Get your labs on your way out today documented in this encounter [facility] 01-28-2025 History of Present illness Narrative This is a 39 year old female who presents today with: Daly A Lover is a 39-year-old female with a history of short bowel syndrome, seen today for follow-up. HISTORY OF PRESENT ILLNESS: Anticoagulation: - remains on coumadin, decreased Short Bowel Syndrome: - Discontinued TPN approximately 1.5 weeks ago. - Surgeon advised weaning off TPN; Daly self-weaned due to feeling full with it to eat real food as well as a burden to her dad as he would have to carry it downstairs for her to the refrigerator - claims good appetite, consuming 2-3 meals/day, including rice, chicken, and salads. - But does have GI upset, loose stools, related to her short bowel syndrome - Inquires about probiotic use - Denies checking blood sugars at home. Wound Care: - Undergoing treatment at a wound center; recent lidocaine injection for debridement caused significant pain. - Reports excessive bleeding during debridement; currently on Coumadin. - PICC line not flushed in several days per patient and dressing hasn't been changed since 01/08. Told rooming nurse that if we wont remove it she will pull it herself Hypokalemia: - Taking 20 mEq 2 tablets potassium tablets BID; reports poor absorption noting it in stool - Attempted to split tablets for better absorption. Most Recent 01/30/22 - 01/28/25 12/20/24 12/31/24 09:50 01/09/25 11:00 01/10/25 13:57 01/28/25 14:18 Weight 172 lb 12.8 oz (78.4 kg) 01/28/25 14:18 202 lb 9.6 oz (91.9 kg) 189 lb 2.5 oz (85.8 kg) 189 lb (85.7 kg) [1] 185 lb 12.8 oz (84.3 kg) 172 lb 12.8 oz (78.4 kg) Down 13# since taking herself off TPN PAST MEDICAL HISTORY: PAST MEDICAL HISTORY Diagnosis Date Attempted suicide (HCC) polysubstance Bipolar depression (HCC) [facility] Gestational diabetes mellitus in (HCC) Impaired fasting blood sugar 06/2015 a1c 5.7% at diagnosis Iron deficiency anemia Vitamin D deficiency PAST SURGICAL HISTORY Procedure Laterality Date ACCUCATH 20G 2.25IN POWER INJECTIBLE 12/02/2024 CARPAL TUNNEL bilateral DELIVERY ONLY 08/05/2012 LAPAROSCOPY SURG CHOLECYSTECTOMY 07/01/2018 Cholecystectomy, lap PAST SURGICAL HISTORY OF 08/26/2024 INSERTION TUNNELED CV CATH PAST SURGICAL HISTORY OF 08/23/2024 REPAIR SIMPLE SUPERFICIAL WOUND ABDOMEN PAST SURGICAL HISTORY OF 08/22/2024 ENTETECTOMY RESECTION small intestine w/ enterostomy PAST SURGICAL HISTORY OF 08/20/2024 Embolectomy popliteal PICC CATHETER INSERTION PROCEDURE (W NOTE) 12/06/2024 ALLERGIES Hydrocodone-Acetaminophen MEDICATIONS Current Outpatient Medications Medication Sig warfarin (COUMADIN) 5 mg tablet Take half a tablets by mouth once daily. TAKE DIRECTED PENDING LAB RESULTS escitalopram oxalate (LEXAPRO) 10 mg tablet Take 1 tablet by mouth once daily. Take with 20 mg dose. escitalopram oxalate (LEXAPRO) 20 mg tablet Take 1 tablet by mouth once daily. Take with 10 mg dose. OLANZapine (ZYPREXA) 20 mg tablet Take 1 tablet by mouth daily at bedtime. pantoprazole DR (PROTONIX) 40 mg tablet Take 1 tablet by mouth two times a day before meals at 6 am and 4 pm. Potassium Bicarb-Citric Acid (KLOR-CON/EF) 25 mEq disintegrating tablet Take 1 tablet by mouth two times a day. No current facility-administered medications for this visit. FAMILY HISTORY Problem Relation Age of Onset Lipids Mother Headache Mother migraine other (back pain) Mother Hypertension Father Heart Father atrial fib Thyroid Father other (aortic aneurysm) Father Psychiatry Brother Diabetes Maternal Grandmother Diabetes Maternal Uncle Diabetes Maternal Uncle Diabetes Maternal Uncle Diabetes Maternal Uncle Aneurysm No Family History Social History Tobacco Use Smoking status: Former Current packs/day: 0.00 Types: Cigarettes Quit date: 04/13/2015 Years since quittin.8 Smokeless tobacco: Never Tobacco comments: Pateint only uses the Vape She doesnt smoke nicotine Patient quit smoking 08/20/2024 Vaping Use Vaping status: Former Quit date: 09/17/2024 Substance Use Topics Alcohol use: Not Currently Comment: occassional Drug use: No REVIEW OF SYSTEMS Constitutional: (-) decreased appetite Gastrointestinal: (+) undigested pill fragments in stool Skin: (+) wound bleeding See HPI EXAM: BP 112/64 (BP Site: Left Arm, BP Position: Sitting, BP Cuff Size: Large Adult) Pulse 112 Resp 14 Wt 78.4 kg (172 lb 12.8 oz) LMP 08/29/2024 SpO2 98% BMI 27.06 kg/m PHYSICAL EXAM: General Appearance: disheveled, poor hygiene and grooming, clothing dirty. Poor dentition Lungs: Lungs clear to auscultation. No wheezing, rhonchi, rales.. Heart: tachycardic, regular ASSESSMENT/PLAN: 1. 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 Anticoagulation management encounter - ICD9: V58.83, V58.61, ICD10: Z51.81, Z79.01 - COMPLETE BLOOD COUNT 3. 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 Malnutrition of moderate degree (HCC) - ICD9: 263.0, ICD10: E44.0 - COMPREHENSIVE METABOLIC PANEL - POTASSIUM BICARBONATE-CITRIC ACID 25 MEQ EFFERVESCENT TABLET - discussed her weight loss, importance of protein for wound healing and overall healing from everything she's been through. Educated on foods to avoid with coumadin and effects of it on labs and risk of bleeding. 5. Hypokalemia - ICD9: 276.8, ICD10: E87.6 - COMPREHENSIVE METABOLIC PANEL - POTASSIUM BICARBONATE-CITRIC ACID 25 MEQ EFFERVESCENT TABLET 6. Anemia, unspecified type - ICD9: 285.9, ICD10: D64.9 - COMPLETE BLOOD COUNT 7. PICC line in place - patient wants this removed, she has weaned herself off of TPN despite education and encouragement to follow and allow nutritional department to manage. - No one is managing this at home, the dressing is 2-3 weeks old, placing her at risk for infection along with poor hygiene and inadequate grooming. - PICC line needs removed as well as patient has stated she will remove herself if we dont. Much education provided regarding coumadin and risk for bleeding and need for professional setting for removal with pressure and pressure dressing to prevent blood loss INR needs done today on way out, will review options for PICC line removal, she does follow with the wound center and reported that someone called her from about needing to have her picc line removed. [employer] calling wound center to see if they are comfortable doing so. Labs being drawn today. Discussed treatment plan and patient voices understanding. Patient's questions answered appropriately. Medications and potential side effects were discussed and patient voices understanding. Return to the office as scheduled or as needed for worsening/no improvement. Ed Thomas APRN.MANAGER CLINICAL RESEARCH Recording using [employer] software for draft documentation of the visit was discussed with the patient/authorized contact representative; all questions welcomed and answered. Patient/authorized contact representative agreed to proceed documented in this encounter [facility] 01-28-2025 Telephone encounter Note Study Title: IRB: [id number] Caring for OutPatiEnts after Acute Kidney Injury (COPE-JONATAN) trial PI: Dr. Juan Manuel Byrd Date: 01/28/2025 Patient# : [id number] Visit #: Week 5 post-index hospitalization Message left 01/28/25 for patient to return call to . The patient verbally consents to continue in the research: Reconfirm patients understanding of the study in general: Data collected per protocol, including patient reported symptoms: []Shortness of breath []Edema/Swelling []Chest pain []Level of physical activity []Appetite and nutritional intake []Voiding symptoms []Pain []Anxiety/mood [] Comments Access patients data on [employer] dashboard: Review and confirm proper use of [employer] Devices Discussed care recommendations: Potential Problems/Barriers to Care identified: [] Disease Management [] Health Insurance/Financial Concerns [] Transportation To and From Clinic [] Physical Needs [] Communication/Cultural Needs [] Comments Reminder re: Other Provider Follow-up appointments: [] COPE Study Pharmacist [] PCP [] Other provider Next Nurse Navigator phone follow-up call due in 2 weeks. Jigna Montalvo January 28, 2025 12:18 PM [facility] 01-28-2025 Miscellaneous Notes Study Title: IRB: [id number] Caring for OutPatiEnts after Acute Kidney Injury (COPE-JONATAN) trial PI: Dr. Juan Manuel Byrd Date: 01/28/2025 Patient# : [id number] Visit #: Week 5 post-index hospitalization Message left 01/28/25 for patient to return call to . The patient verbally consents to continue in the research: Reconfirm patients understanding of the study in general: Data collected per protocol, including patient reported symptoms: []Shortness of breath []Edema/Swelling []Chest pain []Level of physical activity []Appetite and nutritional intake []Voiding symptoms []Pain []Anxiety/mood [] Comments Access patients data on [employer] dashboard: Review and confirm proper use of [employer] Devices Discussed care recommendations: Potential Problems/Barriers to Care identified: [] Disease Management [] Health Insurance/Financial Concerns [] Transportation To and From Clinic [] Physical Needs [] Communication/Cultural Needs [] Comments Reminder re: Other Provider Follow-up appointments: [] COPE Study Pharmacist [] PCP [] Other provider Next Nurse Navigator phone follow-up call due in 2 weeks. Jigna Montalvo January 28, 2025 12:18 PM documented in this encounter [facility] 01-24-2025 Telephone encounter Note Home Nutrition Support Service Dr. Elaine responded and said he agrees we should not manage patient again in the future if she were to require PN again. Routed letter to Dr. Montoya and Tabatha Jalloh for review and signature, to then be mailed via certified and regular mail alerting patient to this. [place] [facility] [place] them of situation. Signoff orders and PICC removal orders already sent yesterday. Called infusion center to see if RN there can remove PICC line. Infusion center confirmed they can remove patient's PICC line there and that they will call her to schedule PICC removal once orders received. Faxed PICC removal order to infusion center. [facility] episode closed. Reccs: - Letter to be mailed via certified and regular mail letting patient know we will not be able to manage HPN for her in the future if she were to require it again given severe non-compliance - Email sent to angel as FYI on situation - PICC removal order faxed to infusion center. Infusion center will call patient to schedule removal - H[facility] episode closed Bisi Seo RD, LD, CNSC [facility] Work Phone: 01-24-2025 Miscellaneous Notes Home Nutrition Support Service Dr. Elaine responded and said he agrees we should not manage patient again in the future if she were to require PN again. Routed letter to Dr. Montoya and Tabatha Jalloh for review and signature, to then be mailed via certified and regular mail alerting patient to this. Email angel alerting them of situation. Signoff orders and PICC removal orders already sent yesterday. Called infusion center to see if RN there can remove PICC line. Infusion center confirmed they can remove patient's PICC line there and that they will call her to schedule PICC removal once orders received. Faxed PICC removal order to infusion center. [facility] episode closed. Reccs: - Letter to be mailed via certified and regular mail letting patient know we will not be able to manage HPN for her in the future if she were to require it again given severe non-compliance - Email sent to angel as FYI on situation - PICC removal order faxed to infusion center. Infusion center will call patient to schedule removal - H[facility] episode closed Bisi Seo RD, LD, CNSC documented in this encounter [facility] 01-24-2025 Telephone encounter Note Called spoke with pt gave information provided. Pt voices understanding. [facility] 01-24-2025 Miscellaneous Notes Called spoke with pt gave information provided. Pt voices understanding. Images from the original note were not included. Ed Thomas APRN.MANAGER CLINICAL RESEARCH to [facility] 01/24/25 8:59 AM Result Note Call placed to Daly and left voicemail about importance of calling back. She needs to change her coumadin dose to 2.5mg (1/2 tablet) daily and get her INR rechecked on Tuesday. Her kidney function has decreased, she needs to make sure she's drinking enough water. She shouldn't be taking any ibuprofen or other NSAIDS (motrin, aleve) as this can increase risk of bleeding with the coumadin as well as decrease kidney function. Tylenol only for pain. Patient returned call and went over results, notes from Ed Thomas NP with understanding. documented in this encounter [facility] 01-24-2025 Telephone encounter Note Images from the original note were not included. Ed Thomas APRN.MANAGER CLINICAL RESEARCH to [facility] 01/24/25 8:59 AM Result Note Call placed to Daly and left voicemail about importance of calling back. She needs to change her coumadin dose to 2.5mg (1/2 tablet) daily and get her INR rechecked on Tuesday. Her kidney function has decreased, she needs to make sure she's drinking enough water. She shouldn't be taking any ibuprofen or other NSAIDS (motrin, aleve) as this can increase risk of bleeding with the coumadin as well as decrease kidney function. Tylenol only for pain. Patient returned call and went over results, notes from Ed Thomas NP with understanding. [facility] 01-23-2025 Telephone encounter Note Agree that we should not manage in the future. Very sad for her. Farzaneh Elaine MD January 23, 2025 [facility] Work Phone: 01-23-2025 Miscellaneous Notes Agree that we should not manage in the future. Very sad for her. Farzaneh Elaine MD January 23, 2025 Home Nutrition Support Service Received email from [facility] that patient is refusing delivery/all future PN deliveries and told them she has weaned herself off the PN entirely. Note patient admitted to self-weaning to every other day last week when I spoke with her, and I explained why it is not safe for us to not know what she is doing and explained we really needed her to go get labs drawn last week as ordered given her K+ was 2.6 the week prior. Patient verbalized understanding but did not go get labs drawn. Patient did have non-PN labs ordered by another provider drawn earlier this week on 01/21 and Na, K+, and CO2 all low. sCr newly elevated. Lab abnormalities likely due to patient self-weaning PN suddenly, however, at this point H[facility] will sign off as patient self-weaned her PN and is refusing all PN deliveries. Patient has made it clear she does not want PN/our services. Encounter routed to Dr. Montoya (managing provider) and Dr. Elaine (director) to confirm we will not manage in future if patient were ever to need PN again given severe non-compliance. In addition to patient self-weaning her PN in the setting of severe hypokalemia and not getting labs drawn when ordered/instructed, she also cancelled her discharge clinic appointment upon hospital discharge and never re-scheduled. Will send non-compliance letter to patient and email to [facility] once confirmed with Dr. Montoya and Dr. Elaine that HNS would not manage in future if patient were to need PN given severe non-compliance and complete self-weaning of PN. Reccs: - Sign off orders sent to [facility] as patient self-weaned her PN completely and is refusing all PN deliveries - Order for PICC removal pended in Epic and routed to Dr. Montoya for signature - Encounter routed to Dr. Montoya and Dr. Elaine to confirm that H[facility] would not manage in the future should patient need PN again given severe non-compliance and complete self-weaning of PN. Also routed to Transplant as an FYI/update on PN Bisi Seo RD, LD, CNSC documented in this encounter [facility] 01-23-2025 Telephone encounter Note Home Nutrition Support Service Received email from [facility] that patient is refusing delivery/all future PN deliveries and told them she has weaned herself off the PN entirely. Note patient admitted to self-weaning to every other day last week when I spoke with her, and I explained why it is not safe for us to not know what she is doing and explained we really needed her to go get labs drawn last week as ordered given her K+ was 2.6 the week prior. Patient verbalized understanding but did not go get labs drawn. Patient did have non-PN labs ordered by another provider drawn earlier this week on 01/21 and Na, K+, and CO2 all low. sCr newly elevated. Lab abnormalities likely due to patient self-weaning PN suddenly, however, at this point [facility] will sign off as patient self-weaned her PN and is refusing all PN deliveries. Patient has made it clear she does not want PN/our services. Encounter routed to Dr. Montoya (managing provider) and Dr. Elaine (director) to confirm we will not manage in future if patient were ever to need PN again given severe non-compliance. In addition to patient self-weaning her PN in the setting of severe hypokalemia and not getting labs drawn when ordered/instructed, she also cancelled her discharge clinic appointment upon hospital discharge and never re-scheduled. Will send non-compliance letter to patient and email to [facility] once confirmed with Dr. Montoya and Dr. Elaine that H[facility] would not manage in future if patient were to need PN given severe non-compliance and complete self-weaning of PN. Reccs: - Sign off orders sent to [facility] as patient self-weaned her PN completely and is refusing all PN deliveries - Order for PICC removal pended in [facility] and routed to Dr. Montoya for signature - Encounter routed to Dr. Montoya and Dr. Elaine to confirm that H[facility] would not manage in the future should patient need PN again given severe non-compliance and complete self-weaning of PN. Also routed to Transplant as an FYI/update on PN Bisi Seo RD, LD, CNSC [facility] Work Phone: 01-17-2025 Telephone encounter Note Home Nutrition Support Service Patient called office and stated she needs to stop TPN because she no longer has room in her refrigerator, and because Dr. Devine said she needs to stop. Reviewed Epic encounters. Last encounter with Dr. Devine was an office visit on 01/03 -- patient confirms this was the last time she spoke with him. Dr. Devine's note from that time says to wean TPN as patient tolerates more by mouth. Note this is the plan, however, that does not mean stopping PN immediately. Pointed out to patient that Dr. Devine did specify PN weaning should be pending PO tolerance, and that is what we assess for. Note patient had a K+ of 2.6 on last week's labs. When we called patient about her critically low K+ last week, we were told she was not eating very well as she gets bloated and full very quickly. Today, patient claiming she is eating and drinking well but does not elaborate further or provide much detail -- answers were kept short. Patient reports her weight is 188 lbs, down 1 lb from last week though remains 3 lbs above goal weight. She states she has already began self-weaning PN because she claims Dr. Devine told her to. She said she has been infusing every other day recently even though PN is ordered 7 days per week. She also states she has been taking her 40 mEq K+ oral supplements daily. I explained that it is not safe to self-wean or suddenly stop PN and that we are providing her significant amounts of electrolytes, including K+, in PN. Therefore, we need to know what she is doing to make safe adjustments. Note patient is ordered labs for this week but has not gone. I asked if she plans to go get labs drawn and she said she will try to today. I stressed importance of her going, and explained if her labs are well-controlled we can consider decreasing PN to 3 days per week since patient states she already self-weaned to every other day so would be infusing ~3.5 days per week on average. Reccs: - Await this week's labs (instructed patient she needs to go today). Note patient needs PN delivery tomorrow. Pharmacy aware that patient was instructed to go get labs drawn today and that we are trying to wait on labs before mixing. Pharmacy will wait until tomorrow morning (Thursday 01/18) and check with [facility] for orders before mixing - Note patient has began self-weaning PN to every other day (ordered for daily) as she believes she needs to stop TPN due to limited space in her refrigerator, and claims that Dr. Devine told her she needs to stop PN. Note Dr. Devine's most recent note says to wean PN as able pending tolerance to PO intake and labs. Will plan to decrease to 3 days per week if labs well-controlled this week, however, hesitant that this will be the case given K+ was 2.[address], LD, CNSC [facility] Work Phone: 01-17-2025 Miscellaneous Notes Home Nutrition Support Service Patient called office and stated she needs to stop TPN because she no longer has room in her refrigerator, and because Dr. Devine said she needs to stop. Reviewed Epic encounters. Last encounter with Dr. Devine was an office visit on 01/03 -- patient confirms this was the last time she spoke with him. Dr. Devine's note from that time says to wean TPN as patient tolerates more by mouth. Note this is the plan, however, that does not mean stopping PN immediately. Pointed out to patient that Dr. Devine did specify PN weaning should be pending PO tolerance, and that is what we assess for. Note patient had a K+ of 2.6 on last week's labs. When we called patient about her critically low K+ last week, we were told she was not eating very well as she gets bloated and full very quickly. Today, patient claiming she is eating and drinking well but does not elaborate further or provide much detail -- answers were kept short. Patient reports her weight is 188 lbs, down 1 lb from last week though remains 3 lbs above goal weight. She states she has already began self-weaning PN because she claims Dr. Devine told her to. She said she has been infusing every other day recently even though PN is ordered 7 days per week. She also states she has been taking her 40 mEq K+ oral supplements daily. I explained that it is not safe to self-wean or suddenly stop PN and that we are providing her significant amounts of electrolytes, including K+, in PN. Therefore, we need to know what she is doing to make safe adjustments. Note patient is ordered labs for this week but has not gone. I asked if she plans to go get labs drawn and she said she will try to today. I stressed importance of her going, and explained if her labs are well-controlled we can consider decreasing PN to 3 days per week since patient states she already self-weaned to every other day so would be infusing ~3.5 days per week on average. Reccs: - Await this week's labs (instructed patient she needs to go today). Note patient needs PN delivery tomorrow. Pharmacy aware that patient was instructed to go get labs drawn today and that we are trying to wait on labs before mixing. Pharmacy will wait until tomorrow morning (Thursday 01/18) and check with [facility] for orders before mixing - Note patient has began self-weaning PN to every other day (ordered for daily) as she believes she needs to stop TPN due to limited space in her refrigerator, and claims that Dr. Devine told her she needs to stop PN. Note Dr. Devine's most recent note says to wean PN as able pending tolerance to PO intake and labs. Will plan to decrease to 3 days per week if labs well-controlled this week, however, hesitant that this will be the case given K+ was 2.[address], LD, CNSC Pt called to discuss weaning TPN. Has been told by Dr. Devine that she needs to discontinue. [phone] documented in this encounter [facility] 01-17-2025 Telephone encounter Note Pt called to discuss weaning TPN. Has been told by Dr. Devine that she needs to discontinue. [phone] [facility] 01-14-2025 Telephone encounter Note Call placed to Daly about her lab work and inquiring if she picked up the lovenox and warfarin and if anyone followed up with her on the labs. She stated no, she did pick up and delivery driver the warfarin and started that on Tuesday. She said all the pharmacies were out of lovenox injections. Ordered an INR and told her to get it drawn tomorrow. Ed Thomas APRN.CNP [facility] 01-14-2025 Miscellaneous Notes Call placed to Daly about her lab work and inquiring if she picked up the lovenox and warfarin and if anyone followed up with her on the labs. She stated no, she did pick up and delivery driver the warfarin and started that on Tuesday. She said all the pharmacies were out of lovenox injections. Ordered an INR and told her to get it drawn tomorrow. Ed Thomas APRN.CNP documented in this encounter [facility] 01-11-2025 Instructions Clayton Granados APRN.JUANY - 01/11/2025 4:32 PM EDT We discussed your anxiety and mental health: - You are experiencing intrusive thoughts, primarily about your health and the future, as well as some panic attacks. - To help manage your anxiety, we will gradually increase your Lexapro dose: - Start taking 30 mg daily (20 mg + 10 mg). This prescription has been sent to your [facility] pharmacy in [place]. - If you experience any gastrointestinal side effects (e.g., stomach discomfort, nausea, or diarrhea), reduce the dose back to 20 mg for 5 days, then try increasing again. - Notify the provider managing your Coumadin, as increasing your Lexapro dose may require adjustments to your Coumadin dosage. - Continue taking Zyprexa 20 mg as prescribed. A refill has been sent to your pharmacy. Follow-up: - Your next appointment is scheduled for March 04, at 2:00 PM. Please let me know if you experience any issues with the Lexapro dose increase or have any other concerns before then. Take care, and I look forward to seeing you at your next visit. For those experiencing a suicidal crisis: --call the National Suicide Prevention Lifeline at 98 (361-226-7855) --text the Crisis Text Line (text HOME to 258559) --call 911 and let them know you are having a mental health crisis or go to your nearest Emergency Room for stabilization. --You can also call Mobile Crisis at [phone]. -- You may call the department appointment line at [phone] to schedule your appointment. -- Please call my nurse at [phone] or send me a message in [employer] with any questions or concerns between appointments. documented in this encounter [facility] 01-11-2025 History of Present illness Narrative Images from the original note were not included. FOLLOW UP - PSYCHIATRIC PROGRESS NOTE Visit [...] visit. Either the patient or their legal contact representative has been informed of the risks and benefits of -- and alternatives to -- treatment through a remote evaluation and consents to proceed with the evaluation remotely. Recording using [employer] software for draft documentation of the visit was discussed with the patient/authorized contact representative; all questions welcomed and answered. Patient/authorized contact representative agreed to proceed CC: Outpatient follow-up and safety monitoring of previously prescribed psychiatric medication, psychotherapy or other treatment HPI: Patient is a 39-year-old female with a history of anxiety and bipolar disorder, presenting for follow-up after multiple recent hospitalizations and surgeries. The patient has been hospitalized multiple times since July, initially for a bowel obstruction, followed by blood clots in both legs, which necessitated surgical intervention. She subsequently required an ostomy bag, which was reversed a few weeks ago. 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 She reports that her family has been supportive throughout these medical challenges. She has been taking Lexapro 20 mg and Zyprexa 20 mg consistently. Gabapentin was added for nerve pain, which she reports provides minimal relief. She is also on long-term Coumadin therapy, which she tolerates well. She notes that her Lexapro dosage was reduced from 40 mg to 20 mg during her hospital stay at [facility], reportedly due to concerns about gut absorption related to her bowel obstruction. She denies any side effects from the 40 mg dosage and requests to return to it, citing increased anxiety. Her anxiety manifests primarily as intrusive thoughts, particularly about her health and future, which occur continuously throughout the day and night. These thoughts often begin with what if scenarios and are more intrusive than the racing thoughts she associates with her bipolar disorder. Despite these symptoms, she denies that her anxiety is debilitating or prevents her from leaving her house. She reports that her sleep has improved, attributing this to the Zyprexa. Her appetite is reportedly good, and she is able to eat without difficulty following her bowel surgery. She denies current nicotine use. Risks and benefits of the medication, including any black box warnings, were discussed with the patient. Interval Progress: Slightly worse PATIENT DATA: Generalized Anxiety Disorder Scale (ELIJAH-7) 12/27/2024 01/03/2025 01/11/2025 ELIJAH - 7 SCORES Score 13 11 11 11 11 11 (0-4) minimal anxiety, (5-9) mild anxiety, (10-14) moderate anxiety, (15-21) severe anxiety Patient Health Questionnaire (PHQ-9) 01/03/2025 01/10/2025 01/11/2025 PHQ-9 Score 14 14 14 14 14 (0-4) minimal depression, (5-9) mild depression, (10-14) moderate depression, (15-19) moderately severe depression, (20-27) severe depression PROMIS Global Health 05/11/2024 07/31/2024 11/09/2024 PROMIS Global Health - (T-Scores - the mean of general population = 50. Five points is a clinically meaningful difference.) Physical T-Score 37.4 37.4 32.4 Mental T-Score 28.4 28.4 33.8 PAST MEDICAL HISTORY Diagnosis Date Attempted suicide (HCC) polysubstance [facility] Gestational diabetes mellitus in (HCC) Impaired fasting blood sugar 06/2015 a1c 5.7% at diagnosis Iron deficiency anemia Vitamin D deficiency PAST SURGICAL HISTORY Procedure Laterality Date ACCUCATH 20G 2.25IN POWER INJECTIBLE 12/02/2024 CARPAL TUNNEL bilateral DELIVERY ONLY 08/05/2012 LAPAROSCOPY SURG CHOLECYSTECTOMY 07/01/2018 Cholecystectomy, lap PAST SURGICAL HISTORY OF 08/26/2024 INSERTION TUNNELED CV CATH PAST SURGICAL HISTORY OF 08/23/2024 REPAIR SIMPLE SUPERFICIAL WOUND ABDOMEN PAST SURGICAL HISTORY OF 08/22/2024 ENTETECTOMY RESECTION small intestine w/ enterostomy PAST SURGICAL HISTORY OF 08/20/2024 Embolectomy popliteal PICC CATHETER INSERTION PROCEDURE (W NOTE) 12/06/2024 Current Outpatient Medications Medication Sig Dispense Refill escitalopram oxalate (LEXAPRO) 10 mg tablet Take 1 tablet by mouth once daily. Take with 20 mg dose. 30 tablet 1 escitalopram oxalate (LEXAPRO) 20 mg tablet Take 1 tablet by mouth once daily. Take with 10 mg dose. 30 tablet 1 OLANZapine (ZYPREXA) 20 mg tablet Take 1 tablet by mouth daily at bedtime. 30 tablet 1 traMADol (ULTRAM) 50 mg tablet Take 1 tablet by mouth two times a day as needed for pain for up to 7 days. 14 tablet 0 enoxaparin (LOVENOX) 100 mg/mL syrg Inject 0.6 mL subcutaneously every 12 hours for 14 days. Expel 0.4 mL from syringe then inject 60 mg subcutaneously twice daily 28 mL 0 warfarin (COUMADIN) 5 mg tablet Take 1 tablet by mouth once daily. TAKE DIRECTED PENDING LAB RESULTS 60 tablet 0 gabapentin (NEURONTIN) 300 mg capsule Take 1 capsule by mouth every 12 hours for 10 days. [address] (PROTONIX) 40 mg tablet Take 1 tablet by mouth two times a day before meals at 6 am and 4 pm. 60 tablet 1 No current facility-administered medications for this visit. ROS: See HPI PFSH: See HPI VITAL SIGNS: There were no vitals filed for this visit. MENTAL STATUS EXAM: Mental Status Exam General/Sensorium: Alert Orientation: AAOx3 Appearance: Casually dressed Eye contact: Appropriate Demeanor: Appropriately interactive Motor activity: Calm Speech: Articulate with appropriate rhythm and volume Mood: Anxious Affect: Congruent with mood Thought process: Within normal limits and linear, logical, and goal-directed Associations: Normal Thought content: Discussing stressors and focused on history, symptoms, and management Suicidal ideation: none Homicidal ideation: none Perceptions: She does not appear internally stimulated. Attention: Intact Memory: Short-term: Intact Long-term: Intact Language: Intact Fund of knowledge: Appropriate Insight: Improving Judgment: Improving DATA REVIEWED: Psychiatric scales, Labs, and Electronic medical record ASSESSMENT & PLAN: 1. 1. ELIJAH (generalized anxiety disorder) (F41.1) Anxiety about health (R45.89) Experiencing increased anxiety and intrusive thoughts about health and future, leading to request for Lexapro dosage increase. Previously on Lexapro 40 mg, reduced to 20 mg during hospitalization due to concerns about gut absorption related to bowel issues. - Gradually increase Lexapro to 30 mg daily; monitor for GI side effects such as stomach discomfort, nausea, or diarrhea. - If side effects occur, reduce back to 20 mg and allow bowel to heal for 5 days before resuming 30 mg. - Educated patient on the importance of informing Coumadin management team about Lexapro dosage increase due to potential interactions. - Scheduled follow-up appointment in 6 weeks on March 04 at 2:00 PM. 2. Bipolar II disorder (HCC) (F31.81) Currently managed with Zyprexa 20 mg. - Continue Zyprexa 20 mg daily. - Refilled Zyprexa prescription. 3. Encounter for long-term (current) use of medications (Z79.899) On long-term medications including Lexapro, Zyprexa, Gabapentin, and Coumadin. Gabapentin added for nerve pain with minimal relief. Coumadin for long-term anticoagulation therapy. - Continue current medication regimen. - Monitor for any interactions or side effects. 4. Insomnia due to other mental disorder (F51.05) Insomnia improved with current Zyprexa regimen. Continue current Zyprexa regimen. Prescriptions given Patient denies any involuntary movement related side effects. Medical Decision Making: Problems: Moderate: 1+ chronic illnesses with change Risk: Moderate: Moderate risk from testing/treatment and Drug management Medical Decision Making Level: 4 - Moderate ADD ON PSYCHOTHERAPY CODE : No SIGNATURE: Clayton Granados APRN.CNP PATIENT NAME: Daly Evans DATE: January 11, 2025 TIME: 3:12 PM documented in this encounter [facility] 01-10-2025 Ed Romano APRN.CNP - 01/10/2025 2:51 PM EDT Do the lovenox injections twice daily until told otherwise (take tonight) Coumadin was called in so that you have it, but someone will reach out to you tomorrow on lab results and give you further direction Get labs done today on way out Take tramadol twice daily x 7 days for pain Do not take nsaids (ibuprofen, motrin, aleve) due to the blood thinners Monitor your incision throughout the day to make sure it's remaining intact and without signs of infection (redness, warmth, increased pain, drainage, fevers) Monitor your blood sugars and bring log in with you when you come in next week documented in this encounter [facility] 01-10-2025 History of Present illness Narrative This is a 39 year old female who presents today with: Check up/pain From 12/31 follow up with surgeon PLAN: -recommended ORS to reduce sugar that may be inducing more diarrhea -Recommend PCP removes gilberto in 10 days. -Recommend weaning off TPN as she tolerates diet (and then line removal) -Recommended over the counter Tylenol for incisional pain. Recommending 1000 mg every 4-6 hours, do not exceed 4000 mg per day. -Recommended follow up with PCP about Warfarin bridge or referral to Vascular Medicine -Flagyl 500 mg PO TID x 7 days for SIBO HISTORY OF PRESENT ILLNESS Daly has been in and out of the hospital since July. 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 She had testing done that excluded Factor V leiden and JAK2 mutation. She had an emergency bowel resection with intestinal transplant, then a minor small bowel resection and jejunostomy. She was started, and continues, on TPN end of Jul. She also had bilateral thomboemboectomy and fasciotomies. After all this she was discharged to SNF around 09/03/24. Then 10/09 she had an accidental overdose of methadone at SNF, started having high output from her stoma and dehydration and was readmitted in October for that. Then readmitted again later that month for JONATAN and possible PE after stopping her blood thinners. It was noted then she had necrotic toes and had to have amputation for gangrenous toes LLE secondary to thrombus. 11/28-12/21 in hospital for continued high output and dehydration with short bowel syndrome. Surgery 12/12 for exploratory laparatomy, lysis of lesions, end jejunostomy takedown and creation of anastomosis, and partial omentectom. She now has most of her entire colon through rectum and anus. She required blood transfusions as well during stay in November Staple Removal: - Gilberto and sutures in place from recent abdominal surgery. - surgery last on 12/12 Left Foot Pain: - Throbbing pain in left foot following amputation of all toes and partial heel debridement due to gangrene from a blood clot. - Pain exacerbated after running out of Dilaudid yesterday. - Gabapentin taken BID for 10 days with no relief per patient - surgeon follow up encouraged tylenol 1000mg every 4-6 hours not exceeding 4000mg - parents are helping with dressing changes Anticoagulation Therapy: - Previously on Lovenox 60 mg BID; ran out of medication approximately one week ago. - Advised to transition to Coumadin - was told she would likely need to be on blood thinners her whole life Depression: - Ongoing depression, exacerbated by recent medical issues - Currently under the care of Clayton, with an appointment scheduled for tomorrow. - history of polysubstance abuse - currently living with parents who are supportive and helping her during this time Nutrition: - Currently on TPN at home, per surgeon she should be weaned off. That is being managed by another GI and nutrition department, they order labs as well - hypokalemia which per Daly has been ongoing and she has prescription at home which she took two of yesterday when they called her and told her she was critically low but did not seek medical attention Orthostatic Dizziness: - Reports dizziness upon standing. - Blood pressure has been low throughout recent medical issues, with readings in the 80s, leading to falls. Last 14 BP Last 14 Encounter BP Readings: Date: BP: 01/10/2025 90/60 12/31/2024 106/77 12/12/2024 143/87 12/10/2024 123/76 12/06/2024 89/58 12/05/2024 93/61 12/03/2024 92/55 11/28/2024 100/65 10/19/2024 95/62 10/09/2024 103/69 10/02/2024 101/72 09/19/2024 132/92 08/20/2024 124/86 08/20/2024 111/64 PAST MEDICAL HISTORY: PAST MEDICAL HISTORY Diagnosis Date Attempted suicide (HCC) polysubstance Bipolar depression (HCC) [facility] Gestational diabetes mellitus in (HCC) Impaired fasting blood sugar 06/2015 a1c 5.7% at diagnosis Iron deficiency anemia Vitamin D deficiency PAST SURGICAL HISTORY Procedure Laterality Date ACCUCATH 20G 2.25IN POWER INJECTIBLE 12/02/2024 CARPAL TUNNEL bilateral DELIVERY ONLY 08/05/2012 LAPAROSCOPY SURG CHOLECYSTECTOMY 07/01/2018 Cholecystectomy, lap PAST SURGICAL HISTORY OF 08/26/2024 INSERTION TUNNELED CV CATH PAST SURGICAL HISTORY OF 08/23/2024 REPAIR SIMPLE SUPERFICIAL WOUND ABDOMEN PAST SURGICAL HISTORY OF 08/22/2024 ENTETECTOMY RESECTION small intestine w/ enterostomy PAST SURGICAL HISTORY OF 08/20/2024 Embolectomy popliteal PICC CATHETER INSERTION PROCEDURE (W NOTE) 12/06/2024 ALLERGIES Hydrocodone-Acetaminophen MEDICATIONS Current Outpatient Medications Medication Sig pantoprazole DR (PROTONIX) 40 mg tablet Take 1 tablet by mouth two times a day before meals at 6 am and 4 pm. escitalopram oxalate (LEXAPRO) 10 mg tablet Take 1 tablet by mouth once daily. Take with 20 mg dose. escitalopram oxalate (LEXAPRO) 20 mg tablet Take 1 tablet by mouth once daily. Take with 10 mg dose. OLANZapine (ZYPREXA) 20 mg tablet Take 1 tablet by mouth daily at bedtime. traMADol (ULTRAM) 50 mg tablet Take 1 tablet by mouth two times a day as needed for pain for up to 7 days. enoxaparin (LOVENOX) 100 mg/mL syrg Inject 0.6 mL subcutaneously every 12 hours for 14 days. Expel 0.4 mL from syringe then inject 60 mg subcutaneously twice daily warfarin (COUMADIN) 5 mg tablet Take 1 tablet by mouth once daily. TAKE DIRECTED PENDING LAB RESULTS gabapentin (NEURONTIN) 300 mg capsule Take 1 capsule by mouth every 12 hours for 10 days. No current facility-administered medications for this visit. FAMILY HISTORY Problem Relation Age of Onset Lipids Mother Headache Mother migraine other (back pain) Mother Hypertension Father Heart Father atrial fib Thyroid Father other (aortic aneurysm) Father Psychiatry Brother Diabetes Maternal Grandmother Diabetes Maternal Uncle Diabetes Maternal Uncle Diabetes Maternal Uncle Diabetes Maternal Uncle Aneurysm No Family History Social History Tobacco Use Smoking status: Former Current packs/day: 0.00 Types: Cigarettes Quit date: 04/13/2015 Years since quittin.7 Smokeless tobacco: Never Tobacco comments: Pateint only uses the Vape She doesnt smoke nicotine Patient quit smoking 08/20/2024 Vaping Use Vaping status: Former Quit date: 09/17/2024 Substance Use Topics Alcohol use: Not Currently Comment: occassional Drug use: No REVIEW OF SYSTEMS Constitutional: (+) decreased energy Cardiovascular: (-) chest pain, (-) palpitations Respiratory: (-) shortness of breath Musculoskeletal: (+) left foot throbbing pain Neurological: (+) dizziness Psychiatric: (+) depressed mood See HPI EXAM: BP 90/60 (BP Site: Left Arm, BP Position: Sitting, BP Cuff Size: Regular Adult) Pulse 84 Wt 84.3 kg (185 lb 12.8 oz) LMP 08/29/2024 SpO2 99% BMI 29.09 kg/m PHYSICAL EXAM: General Appearance: disheveled and poor hygiene in appearance, clothing dirty. She is pleasant. Poor dental condition. She is pale in color. Wearing two surgical shoes. Skin: Skin color pale; picc line right upper extremity Lungs: Lungs clear to auscultation. No wheezing, rhonchi, rales.. Heart: RRR without murmur, gallop, or rubs. No ectopy. Abdomen: Abdomen soft, tender in areas. Bowel sounds present. Incisional care: extensive midline incision with several gilberto present and a horizontal incision with plastic sutures in mid to upper left quadrant. Besides scant dry crusty skin, there are no signs of infection and the incisions are well approximated. Removed all gilberto and sutures without difficulty, cleaned with antibacterial soap and water, pat dry, applied providine, and steristrips for reinforcement. Tolerated well. There is an area at the distal midline incision that is likely scar tissue, but remained intact. No drainage during removal. ASSESSMENT/PLAN 1. 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 Blood thinned due to long-term anticoagulant use (Z79.01) - Recent history of arterial embolism leading to gangrene and subsequent amputation of toes and debridement of heel. - Discontinued Lovenox 60 mg BID approximately one week ago due to running out of medication. Education provided on the importance of her to follow orders given and medication compliance - Discussed bridging to Coumadin; patient understands risks associated with anticoagulation therapy, including dietary restrictions and potential interactions, labs that will be necessary for safely managing. - Ordered lab work including INR to determine appropriate Coumadin dosing. - Patient to avoid foods high in vitamin K and NSAIDs. 3. Pain associated with surgical procedure (G89.18) - Recent amputation and debridement resulting in significant throbbing pain. - Gabapentin taken BID for 10 days with no relief. - Prescribed tramadol BID for 7 days; patient signed consent for controlled substance use. - Advised to monitor pain levels and report any changes, explained that tramadol was a temporary order to help control her pain in feet. - take tylenol prn for mild pain 4. Removal of gilberto (Z48.02) 5. Visit for suture removal (Z48.02) - Abdominal incision healing well; gilberto and sutures removed. - Advised to keep incision clean, avoid heavy lifting, and monitor for signs of infection or dehiscence. - Provided Steri-Strips for additional protection. - Advised against soaking in baths still until fully healed 6. Screening for depression (Z13.31) - Ongoing depression, exacerbated by recent medical events and prolonged hospitalization. - Follow-up with counselor Clayton scheduled for tomorrow. - Encouraged continuation of mental health support. 7. Hypokalemia (E87.6) - Recent labs showed significantly low potassium levels. - Patient took 40 mEq of potassium supplementation. - Ordered electrolyte panel to reassess potassium levels. - Advised to maintain regular TPN infusions to prevent electrolyte imbalances I spent a total of 55 minutes on the date of the service which included preparing to see the patient, [id number] patient care, obtaining and/or reviewing separately obtained history, performing a medically appropriate examination, suture removal, staple removal, counseling and educating the patient/family/caregiver, ordering medications, tests, or procedures, communicating with other HCPs (not separately reported), and care coordination (not separately reported). Discussed treatment plan and patient voices understanding. Patient's questions answered appropriately. Medications and potential side effects were discussed and patient voices understanding. Return to the office in one week as scheduled or as needed for worsening/no improvement. Ed Thomas APRN.MANAGER CLINICAL RESEARCH Recording using [employer] software for draft documentation of the visit was discussed with the patient/authorized contact representative; all questions welcomed and answered. Patient/authorized contact representative agreed to proceed documented in this encounter [facility] 01-10-2025 Telephone encounter Note Home Nutrition Support Service Attempted call to patient again (attempt x 2). No answer, left VM. Call to patient's father, Ernst - patient answered the phone and said her phone had been charging. Patient reports she took a couple of her potassium 40 mEq potassium supplements x 2 yesterday instead of going to the ED and she feels fine. She infused TPN as normal last night and feels her level dropped as a result of skipping the bag the night before her lab draw. Patient reports not eating very well as she gets bloated and full very quickly. She has been eating foods like salad, pizza and chicken. She is trying to drink less pop as it fills her up. She is drinking flavored water and 2 8 oz packets of drip drop per day. She is not using additonal PRN fluids. Reports she ate more food by mouth the day she skipped PN, as the TPN makes her feel full. She is having 4-5 bowel movements per day and not taking any anti diarrheals. Relation to food/ fluid: 2 hours. Patient's weight is 189 lbs - decreased from 202 lbs however pt was +edema in the hospital. Of note her Vit D was 8.9 however her CRP is significantly elevated. Will need to re-check CRP next week to monitor ability to re-draw vitamins/ minerals. Denies fevers/ chills and infusions are going well. Recs: - Discussed to eat lower fiber/ lower fat meals - foods like mashed potatoes, rice, chicken - Discussed to start low sugar/ high protein supplement - INCREASE ORS / drip drop - aim for 1 liter per day - Update to Dr. Montoya. Pt cancelled her discharge clinic appt via my chart and needs to be rescheduled - Will decrease PN calories per patient preference (from 1620 to 1330 kcal). If still doing well next week can start to cut days - Labs next week to include CRP Mayra Alexandre RD [facility] 01-10-2025 Miscellaneous Notes Home Nutrition Support Service Attempted call to patient again (attempt x 2). No answer, left VM. Call to patient's father, Ernst - patient answered the phone and said her phone had been charging. Patient reports she took a couple of her potassium 40 mEq potassium supplements x 2 yesterday instead of going to the ED and she feels fine. She infused TPN as normal last night and feels her level dropped as a result of skipping the bag the night before her lab draw. Patient reports not eating very well as she gets bloated and full very quickly. She has been eating foods like salad, pizza and chicken. She is trying to drink less pop as it fills her up. She is drinking flavored water and 2 8 oz packets of drip drop per day. She is not using additonal PRN fluids. Reports she ate more food by mouth the day she skipped PN, as the TPN makes her feel full. She is having 4-5 bowel movements per day and not taking any anti diarrheals. Relation to food/ fluid: 2 hours. Patient's weight is 189 lbs - decreased from 202 lbs however pt was +edema in the hospital. Of note her Vit D was 8.9 however her CRP is significantly elevated. Will need to re-check CRP next week to monitor ability to re-draw vitamins/ minerals. Denies fevers/ chills and infusions are going well. Recs: - Discussed to eat lower fiber/ lower fat meals - foods like mashed potatoes, rice, chicken - Discussed to start low sugar/ high protein supplement - INCREASE ORS / drip drop - aim for 1 liter per day - Update to Dr. Montoya. Pt cancelled her discharge clinic appt via my chart and needs to be rescheduled - Will decrease PN calories per patient preference (from 1620 to 1330 kcal). If still doing well next week can start to cut days - Labs next week to include CRP Mayra Alexandre RD Home Nutrition Support Service Call to pt to follow up. ED visit not seen in [facility] though may have gone to local ED not viewable in [facility]/Care everywhere. No answer, LVM. Rec: await return call Satish Haider RD, LD, CNSC Home Nutrition Support Service Lab called this afternoon w/ a critical level. Pt had a potassium level of 2.6 today. Call to pateinclement, who reports she feels lightheaded and dizzy. She missed a bag of TPN this last week and thinks it was before the lab was drawn. Given these symptoms patient agreeable to go to the ED for repletion. Noted that [facility] has not been able to get ahold of patient since discharge, and these labs are overdue from 12/31. Discussed this w/ patient and she agreed to call [facility] back tomorrow so we can discuss overall plan/ New Patient Week 1. Recs: - Await ED outcome Mayra Alexandre RD documented in this encounter [facility] 01-10-2025 Telephone encounter Note Home Nutrition Support Service Call to pt to follow up. ED visit not seen in Epic though may have gone to local ED not viewable in Epic/Care everywhere. No answer, LVM. Rec: await return call Satish Haider RD, LD, CNSC [facility] Work Phone: 01-09-2025 Telephone encounter Note Study Title: IRB: [id number] Caring for OutPatiEnts after Acute Kidney Injury (COPE-JONATAN) trial PI: Dr. Juan Manuel Byrd Date: 01/09/2025 Visit #: Week 3 post Index hospitalization I called the patient to follow up on her participation in the COPE-JONATAN study. Phone conversation and chart review completed for the following: Access patients data on [employer] dashboard: N/A -[employer] devices not in use. Patient reports home weight scale use for Weight 189.0 lbs Blood pressure not recorded Update Medical/Surgical History - reviewed and updated PCP visit on 01/01/2025; lab work on 01/08/2025 Assess for AE's - reviewed and updated - no new reportable events since hospital discharge on 12/21/2024 Concomitant Medications: reviewed and updated for medication dispense record Escitalopram, olanzapine dispensed 12/23/2024, metronidazole dispensed 12/31/2024 The patient verbally consents to continue in the research: yes Reconfirm patients understanding of the study in general: yes Data collected per protocol, including patient reported symptoms: []Shortness of breath []Edema/Swelling []Chest pain []Level of physical activity [x]Appetite and nutritional intake - reports as OK []Voiding symptoms []Pain []Anxiety/mood [x] Comments - denies significant physical concerns Education provided at this visit: Assess for changes in physical, and/or environmental well-being yes Provide education about JONATAN review lab results from 01/08/2025 - sCr 0.99 mg/dL discussed monitoring intake of water, salt and sugars in maintaining kidney health Discussed care recommendations: Potential Problems/Barriers to Care identified: [] Disease Management [] Health Insurance/Financial Concerns [] Transportation To and From Clinic [] Physical Needs [] Communication/Cultural Needs [x] Comments no concerns identified Reminder re: Other Provider Follow-up appointments: [x] COPE Study Team, [facility] follow-up due between 01/13 - 01/27/2025 [] PCP [] Other provider Next Nurse Navigator phone follow-up call due at 5-weeks post-hospital discharge, on or before 01/25/2025. Patient verbalized understanding. Amy Rasmussen January 09, 2025 11:16 AM [facility] 01-09-2025 Miscellaneous Notes Study Title: IRB: [id number] Caring for OutPatiEnts after Acute Kidney Injury (COPE-JONATAN) trial PI: Dr. Juan Manuel Byrd Date: 01/09/2025 Visit #: Week 3 post Index hospitalization I called the patient to follow up on her participation in the COPE-JONATAN study. Phone conversation and chart review completed for the following: Access patients data on [employer] dashboard: N/A -[employer] devices not in use. Patient reports home weight scale use for Weight 189.0 lbs Blood pressure not recorded Update Medical/Surgical History - reviewed and updated PCP visit on 01/01/2025; lab work on 01/08/2025 Assess for AE's - reviewed and updated - no new reportable events since hospital discharge on 12/21/2024 Concomitant Medications: reviewed and updated for medication dispense record Escitalopram, olanzapine dispensed 12/23/2024, metronidazole dispensed 12/31/2024 The patient verbally consents to continue in the research: yes Reconfirm patients understanding of the study in general: yes Data collected per protocol, including patient reported symptoms: []Shortness of breath []Edema/Swelling []Chest pain []Level of physical activity [x]Appetite and nutritional intake - reports as OK []Voiding symptoms []Pain []Anxiety/mood [x] Comments - denies significant physical concerns Education provided at this visit: Assess for changes in physical, and/or environmental well-being yes Provide education about JONATAN review lab results from 01/08/2025 - sCr 0.99 mg/dL discussed monitoring intake of water, salt and sugars in maintaining kidney health Discussed care recommendations: Potential Problems/Barriers to Care identified: [] Disease Management [] Health Insurance/Financial Concerns [] Transportation To and From Clinic [] Physical Needs [] Communication/Cultural Needs [x] Comments no concerns identified Reminder re: Other Provider Follow-up appointments: [x] JOSEPH Study Team, [facility] follow-up due between 01/13 - 01/27/2025 [] PCP [] Other provider Next Nurse Navigator phone follow-up call due at 5-weeks post-hospital discharge, on or before 01/25/2025. Patient verbalized understanding. [facility] January 09, 2025 11:16 AM documented in this encounter [facility] 01-08-2025 Telephone encounter Note Home Nutrition Support Service Lab called this afternoon w/ a critical level. Pt had a potassium level of 2.6 today. Call to pateinclement, who reports she feels lightheaded and dizzy. She missed a bag of TPN this last week and thinks it was before the lab was drawn. Given these symptoms patient agreeable to go to the ED for repletion. Noted that [facility] has not been able to get ahold of patient since discharge, and these labs are overdue from 12/31. Discussed this w/ patient and she agreed to call [facility] back tomorrow so we can discuss overall plan/ New Patient Week 1. Recs: - Await ED outcome Mayra Alexandre RD [facility] 01-07-2025 Telephone encounter Note Record ID: [id number] Patient name: Daly Evans Date: January 07, 2025: Administered by: LARRY Protocol: -> Great! Now we are in a secure chat environment. Protecting your health information is important to us. Ok, let's get started. Please verify your name and date of . Please click on the button with your first name. -> Daly Got it. On to the next question... Select the button with your last name. -> Cristina Got it, thank you. Please enter your date of in MM/DD/YYYY format:(e.g., 07/15/1971 for Jul 15, 1971) -> 1985 Thank you for verifying your information. I'd like to ask you a few questions about how your recovery is going. Have there been any new or worsening symptoms since your last response? -> No I'm glad to hear that. Thank you for your time and for allowing us to care for you. Please be sure to reach out to your provider for any further symptoms or needs. Please rate your satisfaction with the care and support you have received from us since you have been home: (scale 1-5; 1 worst and 5 best) -> 4 Please tell me what you liked best about your experience: -> the staff was amazing Please tell me what you liked least about your experience: -> i was moved to different rooms five times [facility] 01-07-2025 Miscellaneous Notes Record ID: [id number] Patient name: Daly Evans Date: January 07, 2025: Administered by: LARRY Protocol: -> Great! Now we are in a secure chat environment. Protecting your health information is important to us. Ok, let's get started. Please verify your name and date of . Please click on the button with your first name. -> Daly Got it. On to the next question... Select the button with your last name. -> Lover Got it, thank you. Please enter your date of in MM/DD/YYYY format:(e.g., 07/15/1971 for Jul 15, 1971) -> 1985 Thank you for verifying your information. I'd like to ask you a few questions about how your recovery is going. Have there been any new or worsening symptoms since your last response? -> No I'm glad to hear that. Thank you for your time and for allowing us to care for you. Please be sure to reach out to your provider for any further symptoms or needs. Please rate your satisfaction with the care and support you have received from us since you have been home: (scale 1-5; 1 worst and 5 best) -> 4 Please tell me what you liked best about your experience: -> the staff was amazing Please tell me what you liked least about your experience: -> i was moved to different rooms five times documented in this encounter [facility] 01-04-2025 Telephone encounter Note Unable To Reach Patient Patient's name appears on the [employer] report for a PHQ-9 score of 14 and +9. Second attempt:SW called Patient to follow up and left a requesting a call back. MONIKA Dhillon [facility] 01-04-2025 Miscellaneous Notes Unable To Reach Patient Patient's name appears on the [employer] report for a PHQ-9 score of 14 and +9. Second attempt:SW called Patient to follow up and left a VM requesting a call back. MONIKA Dhillon documented in this encounter [facility] 01-03-2025 Telephone encounter Note Unable To Reach Patient Patient's name appears on the [employer] report for a PHQ-9 score of 14 and +9. SW called Patient to follow up and left a VM requesting a call back. [employer] SEVERITY RATING SCALE Unable to reach Patient to assess. MONIKA Dhillon [facility] 01-03-2025 Miscellaneous Notes Unable To Reach Patient Patient's name appears on the [employer] report for a PHQ-9 score of 14 and +9. SW called Patient to follow up and left a VM requesting a call back. [place] SEVERITY RATING SCALE Unable to reach Patient to assess. MONIKA Dhillon documented in this encounter [facility] 01-02-2025 Telephone encounter Note Transitional Care Management (TCM) [facility] Monitoring Program Provider Action / FYI: N/a SUMMARY: Outreach type: INITIAL OUTREACH Discharge Network Status: In-Network Discharge Source of Patient: [facility] TCM Discharge Report Patient discharged from [facility] on 12/21/2024. Admitted for Lactic acidosis. Contact made with patient: No, for Follow-up - end outreach and close encounter. Polly Blanton January 02, 2025 2:24 PM [facility] 01-02-2025 Miscellaneous Notes Transitional Care Management (TCM) [facility] Monitoring [facility] Provider Action / FYI: N/a SUMMARY: Outreach type: INITIAL OUTREACH Discharge Network Status: In-Network Discharge Source of Patient: [facility] TCM Discharge Report Patient discharged from [facility] on 12/21/2024. Admitted for Lactic acidosis. Contact made with patient: No, for Follow-up - end outreach and close encounter. Polly Blanton January 02, 2025 2:24 PM documented in this encounter [facility] 01-02-2025 Telephone encounter Note Study Title: IRB: [id number] Caring for OutPatiEnts after Acute Kidney Injury (COPE-JONATAN) trial PI: Dr. Juan Manuel Byrd Date: 01/02/25 Visit #: 7-10 day post-index hospitalization VM Message with call back number left for pt to please call NN on 01/02/25. The patient verbally consents to continue in the research: Reconfirm patients understanding of the study in general: Data collected per protocol, including patient reported symptoms: []Shortness of breath []Edema/Swelling []Chest pain []Level of physical activity []Appetite and nutritional intake []Voiding symptoms []Pain []Anxiety/mood [] Comments Access patients data on [employer] dashboard: Review and confirm proper use of [employer] Devices Discussed care recommendations: Potential Problems/Barriers to Care identified: [] Disease Management [] Health Insurance/Financial Concerns [] Transportation To and From Clinic [] Physical Needs [] Communication/Cultural Needs [] Comments Reminder re: Other Provider Follow-up appointments: [] COPE Study Pharmacist [] PCP [] Other provider Next Nurse Navigator phone follow-up call due Jigna Montalvo January 02, 2025 11:04 AM [facility] 01-02-2025 Miscellaneous Notes Study Title: IRB: [id number] Caring for OutPatiEnts after Acute Kidney Injury (COPE-JONATAN) trial PI: Dr. Juan Manuel Byrd Date: 01/02/25 Visit #: 7-10 day post-index hospitalization VM Message with call back number left for pt to please call NN on 01/02/25. The patient verbally consents to continue in the research: Reconfirm patients understanding of the study in general: Data collected per protocol, including patient reported symptoms: []Shortness of breath []Edema/Swelling []Chest pain []Level of physical activity []Appetite and nutritional intake []Voiding symptoms []Pain []Anxiety/mood [] Comments Access patients data on [employer] dashboard: Review and confirm proper use of [employer] Devices Discussed care recommendations: Potential Problems/Barriers to Care identified: [] Disease Management [] Health Insurance/Financial Concerns [] Transportation To and From Clinic [] Physical Needs [] Communication/Cultural Needs [] Comments Reminder re: Other Provider Follow-up appointments: [] COPE Study Pharmacist [] PCP [] Other provider Next Nurse Navigator phone follow-up call due Jigna Montalvo January 02, 2025 11:04 AM documented in this encounter [facility] 01-01-2025 Telephone encounter Note Transitional Care Management (TCM) [facility] Provider Action / FYI: na SUMMARY: Outreach type: INITIAL OUTREACH Discharge Network Status: In-Network Discharge Source of Patient: [facility] TCM Discharge Report Patient discharged from [facility] on 12.21.24. Admitted for Lactic acidosis. . Contact made with patient: No - 2nd unsuccessful attempt - end outreach and close encounter. Sean De La Fuente January 01, 2025 10:37 AM [facility] 01-01-2025 Miscellaneous Notes Transitional Care Management (TCM) [facility] Monitoring [facility] Provider Action / FYI: na SUMMARY: Outreach type: INITIAL OUTREACH Discharge Network Status: In-Network Discharge Source of Patient: [facility] TCM Discharge Report Patient discharged from [facility] on 12.21.24. Admitted for Lactic acidosis. . Contact made with patient: No - 2nd unsuccessful attempt - end outreach and close encounter. Sean De La Fuente January 01, 2025 10:37 AM documented in this encounter [facility] 12-31-2024 History of Present illness Narrative Images from the original note were not included. [facility] Follow Up Visit REASON FOR VISIT: Post- operative care ESTABLISHED DIAGNOSIS: Short Bowel S SURGERY: yes DATE OF SURGERY: 12/12/24 TYPE OF SURGERY: 1. Exploratory Laparotomy 2. Lysis of Adhesions 3. End Jejunostomy Takedown 4. Creation of Side to Side Jejunocolonic Anastomosis 5. Partial Omentectomy 6- Fascia Closure CURRENT COMPLAINT(S): Surgical Follow Up HISTORY: Daly Estrella Lover is a 39 year old single female from [place], [place] ([address], supportive father) with a history of bipolar disorder, severe panic attacks, polysubstance abuse (EtOH, marijuana - sober since at least Apr 2024), violent behavior under influence of EtOH (September 2021), smoking (quit Jul 2024), (2012), preDM, and lap maryellen (2018). 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 The patient emergently underwent bowel resection from mid jejunum through cecum upon consultation with the intestinal transplant service (08/20/24). She had further minor SBR and formation of an end loop jejunostomy (08/22/24) and was started on TPN. The patient also underwent bilateral LE tibial thromboembolectomy and 4 compartment fasciotomies (08/20/24) with bilateral LE fasciotomy closure by vascular surgery (08/23/24). She was DC to SNF 09/03/24 and referred to [facility] Medical and Surgical Teams for STEP + Gattex. 10/09/24 OSH Admission for accidental overdose of Methadone at SNF. 10/19/24 OSH Admission for high output stoma. Cdiff negative. Stool for GI panel in process. Remains off TPN. Electrolyte repletion underway. Initial JONATAN Cr >2 has resolved. High stoma output, but it is not measured at the [facility]. 11/18-11/05/24 OSH Admission for high output stoma and dehydration. Pt was put on fluids and fiber and a couple of other medications to slow output. Pt had IVF replenished while inpatient. Pt is drinking water and no sugar powerade. I instructed the patient on drinking solely ORS to include drip drop, liquid IV, no sugar powerade and no sugar G2 or G0. Not on TPN 11/13/24 OSH admission for JONATAN possible PE. Creatinine 3.7, Pt stopped taking her blood thinners and may have PE. SBP 60s and liver enzymes elevated. Necrotic toes. 11/28/24-12/21/24 Hospital admission high output stoma and dehydration Presented to the [facility] emergency room with concerns for dehydration and increased liquid output from her ostomy in the setting of short bowel syndrome. Of note, she had surgery 2 weeks prior to amputate gangrenous toes from LLE 07/29 thrombus. She was admitted to General Internal Medicine. Hematology was consulted for concern for Catastrophic Antiphospholipid Syndrome. Podiatry was consulted for evaluation and management of the left foot jain-digital amputation surgical site as well as full-thickness ulceration to the left heel and ischemic lesion to the second toe on the right foot. Vascular surgery was consulted for BLE blood flow given non-healing medial left foot ulceration and dry-gangrenous right second toe. Wound care was consulted for concern of POA wounds on the feet. She underwent Excisional debridement down to deep fascia measuring 4.5 cm by 4.0 cm left foot 2. 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 Infectious Disease was consulted for bacterial growth on soft tissue sample. Cardiology was consulted for preoperative evaluation, considering her hypercoagulable state. Intestinal Transplant/Gut Rehab took over as primary on 12/12 when she went to OR and underwent Underwent Exploratory Laparotomy, Lysis of Adhesions, End Jejunostomy Takedown, Creation of Side to Side Jejunocolonic Anastomosis and Partial Omentectom. She was transferred back to [facility]: on [facility], with NG tube, with pathak, on continued antibiotics. On 12/13 her pathak was discontinued and TPN was continued. On 12/14 her NG tube fell out overnight, it was replaced and position was confirmed on KUB. She was started on SubQ Heparin and IV Toradol for pain management. 12/15 PO dilaudid started for pain management. On 12/17 her NG tube was removed and she was started on clear liquid diet. On 12/18 she received one unit of blood for a low hemoglobin and started on GI soft diet. On 12/19 she was seen on GI rounds and assessed by Dr. Montoya for TPN, and vascular medicine was consulted to assist in bridging her to warfarin from Lovenox. Anatomy: Intact stomach, duodenum, 85 cm of small bowel, (jejunal colonic anastomosis to the right colon), no ileocecal valve, mostly entire colon through rectum and anus. Current Outpatient Medications Medication Sig Dispense Refill enoxaparin (LOVENOX) 100 mg/mL syrg Inject 0.6 mL subcutaneously every 12 hours. Expel 0.4 mL from syringe then inject 60 mg subcutaneously twice daily HYDROmorphone (DILAUDID) 2 mg tablet Take 1 tablet by mouth every 8 hours as needed for pain for up to 5 days. 15 tablet 0 gabapentin (NEURONTIN) 300 mg capsule Take 1 capsule by mouth every 12 hours for 10 days. [address] (PROTONIX) 40 mg tablet Take 1 tablet by mouth two times a day before meals at 6 am and 4 pm. 60 tablet 1 naloxone 4 mg/actuation nasal spray (NARCAN) Use 1 spray in one nostril as needed for overdose. May repeat every 2 to 3 minutes in alternating nostrils until medical assistance is available 2 each 0 calcium polycarbophil (FIBER) 625 mg tablet Take 1,250 mg by mouth three times a day. escitalopram oxalate (LEXAPRO) 20 mg tablet Take 1 tablet by mouth once daily. 30 tablet 1 OLANZapine (ZYPREXA) 20 mg tablet Take 1 tablet by mouth daily at bedtime. 30 tablet 1 No current facility-administered medications for this visit. ALLERGIES Allergen Reactions Hydrocodone-Acetami* GI Upset hyperactivity LABS: Scheduled for labwork on 01/01/25 12/24/24 labs: Testing: CMP: Glucose 125 12/21/2024 BUN 15 12/21/2024 Creatinine 0.70 12/21/2024 Sodium 137 12/21/2024 Potassium 4.1 12/21/2024 Chloride 105 12/21/2024 CO2 23 12/21/2024 Protein, Total 6.2 12/21/2024 Albumin 2.9 12/21/2024 Calcium 9.1 12/21/2024 Alkaline Phosphatase 123 12/21/2024 Bilirubin, Total 0.2 12/21/2024 AST 26 12/21/2024 ALT 34 12/21/2024 Hemoglobin (g/dL) Date Value 12/21/2024 9.7 07/28/2021 13.2 Hematocrit (%) Date Value 12/21/2024 30.5 07/28/2021 40.3 WBC (k/uL) Date Value 12/21/2024 7.53 07/28/2021 9.20 Platelet Count (k/uL) Date Value 12/21/2024 428 07/28/2021 451 Magnesium (mg/dL) Date Value 12/21/2024 2.1 Phosphorus Date Value Ref Range Status 12/21/2024 4.4 2.7 - 4.8 mg/dL Final No components found for: [id number] No results found for: PHOS No components found for: BLOODCULTURE ROS: Eyes: Denies any problems with Eyes Ears, Mouth, nose, throat:No problems Cardiovascular: No Problems Respiratory: Negative for cough, wheezing and shortness of breath Gastrointestinal : Denies Nausea, vomiting, abdominal pain, + bloating, +gas, having 3 (sometimes 4) liquid bowel movements per day G-Tube no J-Tube: no Stoma:no Fistula:no Genitourinary: Negative Musuloskeletal: Normal, cast on left foot after amputation Integumentary: no rashes, lesions, or jaundice Psychiatric: Cooperative and agreeable Allergic/ Immunologic: Negative Wound: Reports incisional pain. All others negative NUTRITION ASSESSMENT: TPN: yes managed by Dr. Montoya 1800 mL over 12 hrs with Smoflipid 7 days per week. Site of Catheter: R arm Type of Catheter: DL PICC Infection:No signs of infection Duration of TPN: Started for the second time 11/2024 Tube Feeds: no Osteoporosis: not documented Nutritional Deficiencies: no CURRENT IMAGES: N/A This patient was seen and examined with Dr. Kirit Devine MD [facility] STAFF PHYSICIAN NOTE OF PERSONAL INVOLVEMENT IN CARE I have reviewed the consult note obtained and documented by the clinician and I personally participated in the lagos components. Outside records, labs, and x-rays obtained and reviewed. Risks and Benefits of each therapy were discussed with the patient and family in full details. I spent 30 minutes in this visit, with more than 50% of the time devoted to patient counseling.The following comments revise or confirm relevant lagos components of the note. PHYSICAL EXAM: [facility] 08/29/2024 General appearance: well appearing, alert, in no acute distress, and well-hydrated, well nourished Skin: Skin color, texture, turgor normal, no visible rashes or lesions. Tattoos bilateral upper extremities. HEENT: Head is normocephalic, atraumatic. Respiratory: No increased work of breathing, on room air. Abdomen: soft, non-tender, non-distended, without organomegaly or palpable masses, no tenderness to palpation, well healing midline incisional scar that is healing in middle, held together with surgical gilberto, clean, dry and intact. Masses:no G-Tube no J-Tube: no Stoma:no Fistula:no Abdominal Wall Contraction:no Abdominal Wall Mesh:no Extremities: Extremities normal. No deformities, edema, or skin discoloration visible (significant tattoos) Neuro: Gait with mild limp from amputation/cast on foot. Psychiatric: Cooperative and agreeable ASSESSMENT: Daly Evans was seen in clinic for follow up surgical appointment. She reports feeling a lot of bloating and a lot of gas. Review of her labs showed mildly elevated LFTs. She reports having bowel movements- watery. 3x per day. She denies Nausea or Vomiting. She denies abdominal pain but reports some incisional pain that she described as a stabbing . She has not been taking anything for it. She is on TPN, she reports eating and drinking well (a lot of powerade and water). She has been eating [employer] yesterday and [employer]'s sausage, egg and cheese for breakfast. She has a well healing midline incisional scar. No Erythema. Clean, dry and intact. Surgical gilberto in place. She is still taking the Lovenox. Has an appointment with Vascular Medicine scheduled for February. PLAN: -recommended ORS to reduce sugar that may be inducing more diarrhea -Recommend PCP removes gilberto in 10 days. -Recommend weaning off TPN as she tolerates diet (and then line removal) -Recommended over the counter Tylenol for incisional pain. Recommending 1000 mg every 4-6 hours, do not exceed 4000 mg per day. -Recommended follow up with PCP about Warfarin bridge or referral to Vascular Medicine -Flagyl 500 mg PO TID x 7 days for ASA Castle PA-C 12/26/2024 documented in this encounter [facility] 12-31-2024 Note [facility] 12-25-2024 Telephone encounter Note Study Title: Caring for OutPatiEnts after Acute Kidney Injury (COPE-JONATAN) Trial. IRB: [id number] PI: Dr. Byrd Date:12/25/2024 Visit: (2-3) days post hospital discharge -Contact 2 Call made on 12/25/24 with no answer. Will try calling patient again tomorrow. The patient verbally consents to continue in the research: Access patients data on [employer] dashboard: SBP: DBP: WT: Review and confirm proper use of [employer] Devices Scale: BP: Confirm patients understanding of Nurse Navigator Role: Confirm contact information of medical care team: Confirm patients preferred method of communication: video call: phone call: Review prior education about JONATAN: Confirm patients plan for follow-up visits with care providers as directed by the study physicians triage assessment at the time of hospital discharge: Patient reported symptoms completed: B-41 []Shortness of breath []Edema/Swelling []Chest pain []Level of physical activity []Appetite and nutritional intake []Voiding symptoms []Pain []Anxiety/mood []Other Confirm list of home medications: Confirm patient has obtained discharge medications: Confirm medication adherence: Reinforce the importance of upcoming pharmacy call (5-7 days post discharge): Inform patients to have medications available for pharmacy call. Discussed care recommendations: Next appointment scheduled: [facility] 12-25-2024 Miscellaneous Notes Study Title: Caring for OutPatiEnts after Acute Kidney Injury (COPE-JONATAN) Trial. IRB: [id number] PI: Dr. Byrd Date:12/25/2024 Visit: (2-3) days post hospital discharge -Contact 2 Call made on 12/25/24 with no answer. Will try calling patient again tomorrow. The patient verbally consents to continue in the research: Access patients data on [employer] dashboard: SBP: DBP: WT: Review and confirm proper use of [employer] Devices Scale: BP: Confirm patients understanding of Nurse Navigator Role: Confirm contact information of medical care team: Confirm patients preferred method of communication: video call: phone call: Review prior education about JONATAN: Confirm patients plan for follow-up visits with care providers as directed by the study physicians triage assessment at the time of hospital discharge: Patient reported symptoms completed: B-41 []Shortness of breath []Edema/Swelling []Chest pain []Level of physical activity []Appetite and nutritional intake []Voiding symptoms []Pain []Anxiety/mood []Other Confirm list of home medications: Confirm patient has obtained discharge medications: Confirm medication adherence: Reinforce the importance of upcoming pharmacy call (5-7 days post discharge): Inform patients to have medications available for pharmacy call. Discussed care recommendations: Next appointment scheduled: documented in this encounter [facility] 12-25-2024 Telephone encounter Note Transitional Care Management (TCM) [facility] Provider Action / FYI: N/A SUMMARY: Outreach type: INITIAL OUTREACH Discharge Network Status: In-Network Discharge Source of Patient: [facility] TCM Discharge Report Patient discharged from [facility] on 12/21/24. Admitted for Lactic acidosis. Contact made with patient: No - next outreach attempt will be on next business day. Suman Guevara RN December 25, 2024 2:27 PM [facility] 12-25-2024 Miscellaneous Notes Transitional Care Management (TCM) [facility] Provider Action / FYI: N/A SUMMARY: Outreach type: INITIAL OUTREACH Discharge Network Status: In-Network Discharge Source of Patient: [facility] TCM Discharge Report Patient discharged from [facility] on 12/21/24. Admitted for Lactic acidosis. Contact made with patient: No - next outreach attempt will be on next business day. Suman Guevara RN December 25, 2024 2:27 PM documented in this encounter [facility] 12-25-2024 Telephone encounter Note Pt was discharged 12/21 and is to have weekly labs, with consults for vascular medicine , coumadin clinic, and podiatry. She is on TPN without home care. She will go to infusion center for labs and dressing changes weekly. She is on Lovenox 60 bid with plan to increase to therapeutic dose once she bridges to Coumadin. Postop anatomy: jejunocolonic anastomosis Labs from 12/24/2024 I called the patient to see how she is feeling but she didn't answer and her mailbox was full. I called her father, Ernst, and she handed the phone over to her. Denies N, abd pain, and bloating. Pt has gilberto on main incision and sutures at jejunostomy take down. Pt is having 3 liquid stools per day Pt is eating and drinking without difficulty. Her weight is stable. Denies fevers. Pt agreed to in person visit with Dr. Devine on Sunday 12/31. Dr. Devine was updated. [facility] 12-25-2024 Miscellaneous Notes Pt was discharged 12/21 and is to have weekly labs, with consults for vascular medicine , coumadin clinic, and podiatry. She is on TPN without home care. She will go to infusion center for labs and dressing changes weekly. She is on Lovenox 60 bid with plan to increase to therapeutic dose once she bridges to Coumadin. Postop anatomy: jejunocolonic anastomosis Labs from 12/24/2024 I called the patient to see how she is feeling but she didn't answer and her mailbox was full. I called her father, Ernst, and she handed the phone over to her. Denies N, abd pain, and bloating. Pt has gilberto on main incision and sutures at jejunostomy take down. Pt is having 3 liquid stools per day Pt is eating and drinking without difficulty. Her weight is stable. Denies fevers. Pt agreed to in person visit with Dr. Devine on Sunday 12/31. Dr. Devine was updated. documented in this encounter [facility] 12-25-2024 History of Present illness Narrative COPE-JONATAN STUDY PATIENT PHARMACIST CONTACT Study Title: Caring for OutPatiEnts aftr Acute Kidney Injury (COPE-JONATAN) Trial IRB:[id number] PI: Dr. Byrd Visit Type: Initial Provider Action/FYI SBAR Communication with Provider Situation Pharmacist visit encounter completed as part of patient's participation in the Caring for OutPatiEnts after Acute Kidney Injury (COPE-JONATAN) randomized trial. 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 She had a complex medical history involving multiple serious conditions such as acute mesenteric and limb ischemia, arterial thrombosis, lupus anticoagulant positivity, and a hypercoagulable state. During her stay, she underwent two major surgeries: one for foot debridement and toe amputation due to gangrene, and another for abdominal reconstruction involving jejunocolonic anastomosis. Multiple specialties, including hematology, podiatry, vascular surgery, infectious disease, cardiology, and intestinal transplant teams, were involved in her care. She was stabilized postoperatively with nutritional support, anticoagulation management, and pain control, and was discharged in stable condition, tolerating a soft diet and with all necessary education provided. Assessment Spoke patient to review medications. She reports taking lexapro 40mg daily despite recent prescriptions and dispenses being for 20mg tablets. Recommendation Please review lexapro dose with patient to make sure she is taking the correct dose. Pharmacist advised patient to double check dosage on label and administration instructions and to follow up with her doctor as most recent dose appears to be 20mg once daily. Review and discussion of medications with patient as outlined in medication table below. Source of medication information obtained from Medication list. Dispense records from pharmacy also utilized to obtain additional medication fill history. No additional reported medication questions or concerns at this time. PHARMACIST ASSESSMENT/CHECKLIST: -Discharge date: 12/21/24 -Date of [facility] assessment/communication: 12/25/24 -Disposition of the patient at time of assessment? Home -Review study yeast culture developer (B-38) and nurse navigator (B-41) documentation if available. -Review discharge summary and relevant inpatient documentation. -Review medication list for potential nephrotoxins and medications requiring renal dose adjustment. -Question patient regarding OTC/herbal medications and counseled patient on avoidance of NSAIDs if applicable. -Address any disease and medication management concerns (BP, BG, electrolytes, infection, edema) and escalate if necessary. -Complete Pharmacist Form B37 electronically on COPE JONATAN study website. -Pharmacist SBAR added to COPE JONATAN Provider letter if applicable. -Relevant labs/calculations: Estimated Creatinine Clearance: 123.1 mL/min (based on SCr of 0.7 mg/dL). Estimated Glomerular Filtration Rate (mL/min/1.73m ) Date Value 12/21/2024 112 eGFR- (no units) Date Value 07/28/2021 >60 Estimated body surface area is 2.08 meters squared as calculated from the following: Height as of 12/10/24: 170.2 cm (5' 7.01). Weight as of 12/20/24: 91.9 kg (202 lb 9.6 oz). 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 Operations Performed While in the Hospital: On 12/03 you underwent excisional debridement down to deep fascia measuring 4.5 cm by 4.0 cm left foot 2. 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 with Podiatry On 12/12 you underwent Exploratory Laparotomy, Lysis of Adhesions, End Jejunostomy Takedown, Creation of Side to Side Jejunocolonic Anastomosis and partial omentectomy with Intestinal Transplant + Gut Rehab Team Important Tests/Procedures: Chest X Ray CT Chest with IV Contrast CT Chest without IV Contrast CT Abdomen and Pelvis without IV Contrast PVR Ankle/Hester/Toe Bilateral Vascular Lab MRI Foot/Toes without/with contrast Ultrasound of leg vein DVT bilateral vascular lab CTA Chest Foot X Ray IR Physician inserted PICC line Abdominal X Ray Colonoscopy EKG Echo Summary of What Happened When in the Hospital: Presented to the [facility] emergency room with concerns for dehydration and increased liquid output from her ostomy in the setting of short bowel syndrome. Of note, she had surgery 2 weeks prior to amputate gangrenous toes from LLE 2/ thrombus. She was admitted to General Internal Medicine. Hematology was consulted for concern for Catastrophic Antiphospholipid Syndrome. Podiatry was consulted for evaluation and management of the left foot jain-digital amputation surgical site as well as full-thickness ulceration to the left heel and ischemic lesion to the second toe on the right foot. Vascular surgery was consulted for BLE blood flow given non-healing medial left foot ulceration and dry-gangrenous right second toe. Wound care was consulted for concern of POA wounds on the feet. She underwent Excisional debridement down to deep fascia measuring 4.5 cm by 4.0 cm left foot 2. 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 Infectious Disease was consulted for bacterial growth on soft tissue sample. Cardiology was consulted for preoperative evaluation, considering her hypercoagulable state. Intestinal Transplant/Gut Rehab took over as primary on 12/12 when she went to OR and underwent Underwent Exploratory Laparotomy, Lysis of Adhesions, End Jejunostomy Takedown, Creation of Side to Side Jejunocolonic Anastomosis and Partial Omentectom. She was transferred back to [facility]: on [facility], with NG tube, with pathak, on continued antibiotics. On 12/13 her pathak was discontinued and TPN was continued. On 12/14 her NG tube fell out overnight, it was replaced and position was confirmed on KUB. She was started on SubQ Heparin and IV Toradol for pain management. 12/15 PO dilaudid started for pain management. On 12/17 her NG tube was removed and she was started on clear liquid diet. On 12/18 she received one unit of blood for a low hemoglobin and started on GI soft diet. On 12/19 she was seen on GI rounds and assessed by Dr. Montoya for TPN, and vascular medicine was consulted to assist in bridging her to warfarin from Lovenox. She is tolerating diet. Labs and vital signs are stable. She received all necessary teaching and has been deemed stable for discharge. Legend: Stopped, New, Changed, Added to list Medication List Medication Directions Comments Action/Plan calcium polycarbophil (FIBER) 625 mg tablet Take 1,250 mg by mouth three times a day. on pharmacy dispense records with recent fill hx Not taking removed Discontinued: 12/20/2024 4:03 PM Discontinued: 12/21/2024 12:45 PM enoxaparin (LOVENOX) 100 mg/mL syrg Inject 0.6 mL subcutaneously every 12 hours. Expel 0.4 mL from syringe then inject 60 mg subcutaneously twice daily on pharmacy dispense records with recent fill hx PER VASKyler recs team not yet ready for therapeutic lovenox, ok to uptitrate to lovenox 60 mg every 12 hrs dc planned for today recommend dc on lovenox 60 mg every 12 hr and then when pt sees PCP on 12/31 could uptitrate to therapeutic lovenox 90 mg every 12 hrs and begin bridging to warfarin [facility] has coumadin clinic but only takes referral from [facility] staff. escitalopram oxalate (LEXAPRO) 20 mg tablet Take 1 tablet by mouth once daily. on pharmacy dispense records with recent fill hx Was getting 20mg once daily in hospital Patient reports taking 40mg daily, but recent prescriptions have been for 20mg 30 tablets/30 days and last prescription was for 20mg once daily. Asked patient if dose was recently increased and she insists she has always been on 40mg Advised patient to double check dosage and directions on bottle and follow up with her doctor. gabapentin (NEURONTIN) 300 mg capsule Take 1 capsule by mouth every 12 hours for 10 days. Pt filled via [facility] bedside delivery pharmacy team prior to discharge. Discontinued: 12/20/2024 4:03 PM on pharmacy dispense records with recent fill hx HYDROmorphone (DILAUDID) 2 mg tablet Take 1 tablet by mouth every 8 hours as needed for pain for up to 5 days. Pt filled via [facility] bedside delivery pharmacy team prior to discharge. Patient has completed Discontinued: 12/21/2024 12:45 PM Discontinued: 12/20/2024 4:03 PM Discontinued: 12/19/2024 3:12 PM on pharmacy dispense records with recent fill hx naloxone 4 mg/actuation nasal spray (NARCAN) Use 1 spray in one nostril as needed for overdose. May repeat every 2 to 3 minutes in alternating nostrils until medical assistance is available Pt filled via [facility] bedside delivery pharmacy team prior to discharge. No longer on diualid, states she does not need Removed from med list OLANZapine (ZYPREXA) 20 mg tablet Take 1 tablet by mouth daily at bedtime. on pharmacy dispense records with recent fill hx Discontinued: 12/19/2024 3:27 PM Changed to pantoprazole pantoprazole DR (PROTONIX) 40 mg tablet Take 1 tablet by mouth two times a day before meals at 6 am and 4 pm. Pt filled via [facility] bedside delivery pharmacy team prior to discharge. Reviewed with patient and she is unsure of this medication Discontinued: 12/19/2024 3:12 PM on pharmacy dispense records with recent fill hx Potassium Date Value Ref Range Status 12/21/2024 4.1 3.7 - 5.1 mmol/L Final 12/20/2024 4.0 3.7 - 5.1 mmol/L Final 12/19/2024 3.6 (L) 3.7 - 5.1 mmol/L Final Time spent on patient: 45-60 minutes Mounika Trent RPh December 25, 2024 9:10 AM documented in this encounter [facility] 12-25-2024 Note [facility] 12-21-2024 Note [facility] 12-21-2024 Note [facility] 12-21-2024 Note [facility] 12-21-2024 History of Present illness Narrative Sapphire Ambulatory pump Patient education Checklist. Patient Name: Daly Evans MR# [id number] Date: December 21, 2024 10:17 am Performance Criteria: Patient has received Sapphire pump training materials needed for bedside teach Yes Identify or describes port locations for AC adapter and bolus cord.: Yes Identify percent battery remaining on pump and demonstrates proper method of charging pump with AC adapter: Yes Demonstrates how to identify the filter size on the Sapphire cassette tubing and when to use each. Yes Demonstrates loading of the Sapphire administration cassette: Yes Demonstrates ability to turn pump on and off: Yes Demonstrates ability to review the infusion program and enter correct Patient code: Yes Demonstrates or explains how to prime the set using the pump priming function: Yes Demonstrates how to start, pause, stop, and repeat infusion: Yes 10. Describes the display LED status lights and their meaning: Yes 11. Describes each keyboard function: Yes 12. Demonstrates ability to identify and troubleshoot common alarm alerts and messages on pump: Yes 13. Demonstrates ability to resume infusion after alarms resolved: Yes 14. Demonstrates proper method to assemble infusion bag and pump in backpack or carry case: No 15. Demonstrates proper method for hanging infusion bag on IV pole and attachment of pump to Pole cradle: No, but did describe this process and how to properly hand TPN on pole with the bag being 20 inches between bottom of the TPN bag and top of the pump Final Results: Patient seems to be capable of operating the Sapphire pump, but states she feels overwhelmed that she will not be able to remember all this and is requesting home care now to assist. Informed her that the Sapphire Pump Guide that was given to her has all the Step by Step instructions that was demonstrated to her and will be a good reference. Patient voiced that she could probably do it on her own after some guidance in the home or would like her father to learn also, but father not available at this time for teach. Will be present later this afternoon for HPN teach at 12:30. Told patient this RN will revisit with her and father around 1:30 pm for further teaching and is agreeable to that. Spent 40 min discussing and demonstrating the functions of the Sapphire pump for TPN infusion which also included pt teaching back instructions taught. Todd Salomon RN Home Infusion Pharmacy Nurse documented in this encounter [facility] 12-21-2024 Note [facility] 12-20-2024 Note [facility] 12-20-2024 Note [facility] 12-20-2024 Note [facility] 12-20-2024 History of Present illness Narrative Study Title: Caring for OutPatiEnts aftr Acute Kidney Injury (COPE-JONATAN) Trial IRB:[id number] PI: Dr. Byrd Date: 12/20/2024 Visit: Pre Hospital Discharge Has study yeast culture developer completed their assessment/guidance for post management: Pending B-38 Nurse navigator reviewed the plan of management with the study yeast culture developer to determine: *Follow-up with clinical yeast culture developer: pending *Follow-up with PCP: Yes-scheduled *What are the targets for BP and volume (weight) management: -BP: 130/80 -Weight: Baseline -Specific management issues study yeast culture developer is concerned about: Pending B-38 Informed the patient of Nurse Navigator Role and Provided NN contact information: Yes Collection of medical care team contacts: PCP: DO Kriss Pruitt study Physician: podiatry - Linda Duval DO and DDSI - Albina Mejia Pharmacy: Study pharmacist Preferred method of communication: Video call NoPhone call: Yes Educational written materials provided: Yes [employer] downloaded & equipment supplied: Yes Patient received training on equipment: Yes Device serial number scale: [id number] Device serial number BP device: [id number] C-24 Labs Collected: blood: No urine: No Contact PCP: pending Next appointment scheduled: 2-3 day visit. Jigna Montalvo December 25, 2024 11:13 AM documented in this encounter [facility] 12-19-2024 Note [facility] 12-19-2024 Note [facility] 12-18-2024 Note [facility] 12-18-2024 Note [facility] 12-17-2024 Note [facility] 12-17-2024 Note [facility] 12-16-2024 Note [facility] 12-16-2024 Note [facility] 12-15-2024 Note [facility] 12-15-2024 Note [facility] 12-14-2024 Note [facility] 12-14-2024 Note [facility] 12-13-2024 Note [facility] 12-13-2024 Telephone encounter Note Message given to Sandra Castle PA-c, inpatient team. [facility] 12-13-2024 Miscellaneous Notes Message given to Sandra Castle PA-c, inpatient team. Ernst called concerning the status of the pt's surgery. Requesting a return call from the in service coordinator. Please call Ernst at [phone]. Twila Vargas documented in this encounter [facility] 12-13-2024 Telephone encounter Note Ernst called concerning the status of the pt's surgery. Requesting a return call from the in service coordinator. Please call Ernst at [phone]. Twila Vargas [facility] 12-13-2024 Note [facility] 12-12-2024 Note [facility] 12-12-2024 Note [facility] 12-12-2024 Note [facility] 12-12-2024 Note [facility] 12-11-2024 Note [facility] 12-10-2024 Note [facility] 12-09-2024 Note [facility] 12-09-2024 Note [facility] 12-08-2024 Note [facility] 12-07-2024 Note [facility] 12-07-2024 Note [facility] 12-07-2024 Note [facility] 12-06-2024 Note [facility] 12-06-2024 Note [facility] 12-05-2024 Note [facility] 11-28-2024 Telephone encounter Note I called Ernst back but got his voicemail. I explained that I was glad she is here in the ED, but she is not yet a patient of Dr. Roy because we have not been able to complete the surgical evaluation or determine whether surgery is appropriate. She'll be evaluated in the ED and if she needs to be admitted, she will be admitted to the medicine service to optimize her fluid and electrolyte status, control her stoma output and optimize her nutrition. I said that if they need assistance from the ED nurse to reach out to the ED staff. I will update Dr. Devine that she did come to the ED as we discussed yesterday. [facility] 11-28-2024 Miscellaneous Notes I called Ernst back but got his voicemail. I explained that I was glad she is here in the ED, but she is not yet a patient of Dr. Devine's because we have not been able to complete the surgical evaluation or determine whether surgery is appropriate. She'll be evaluated in the ED and if she needs to be admitted, she will be admitted to the medicine service to optimize her fluid and electrolyte status, control her stoma output and optimize her nutrition. I said that if they need assistance from the ED nurse to reach out to the ED staff. I will update Dr. Devine that she did come to the ED as we discussed yesterday. Ernst (father) called in requesting that Libia calls him back at [phone]. Ernst says that Daly is in the emergency room because she is having issues with her ostomy bag. Ernst says that Daly is sweating, dizzy, and in pain. documented in this encounter [facility] 11-28-2024 Telephone encounter Note Ernst (father) called in requesting that Libia calls him back at [phone]. Ernst says that Daly is in the emergency room because she is having issues with her ostomy bag. Ernst says that Daly is sweating, dizzy, and in pain. [facility] Work Phone: 11-27-2024 Telephone encounter Note I returned Daly's call. She was hospitalized again a few days ago. She was given IVF and electrolytes, and then discharged. She has had multiple local hospital admissions for dehydration, high stoma output, and electrolyte imbalance. She has not yet been evaluated by our team, and has decided to come to [facility] ED tomorrow for evaluation and possible admission to the medicine service for stabilization. I told her that I will inform Dr. Devine. I did reach out to Dr. Devine and shared the above. [facility] 11-27-2024 Miscellaneous Notes I returned Daly's call. She was hospitalized again a few days ago. She was given IVF and electrolytes, and then discharged. She has had multiple local hospital admissions for dehydration, high stoma output, and electrolyte imbalance. She has not yet been evaluated by our team, and has decided to come to [facility] ED tomorrow for evaluation and possible admission to the medicine service for stabilization. I told her that I will inform Dr. Devine. I did reach out to Dr. Devine and shared the above. The patient requests a call from Libia.Priscila Navarrete documented in this encounter [facility] 11-27-2024 Telephone encounter Note The patient requests a call from Libia.Priscila Navarrete [facility] 11-23-2024 [facility] Note [facility] 11-14-2024 Note [facility] 11-12-2024 Telephone encounter Note I called patient and left a voicemail for her and her father and explained that she should come to the [facility] ED if she is having N, V, high output, or dehydration so that we can evaluate her here and determine what is needed for optimization for surgery. I also explained that the physicians and the hospital she is evaluated at can request transfer to [facility]. [facility] 11-12-2024 Miscellaneous Notes I called patient and left a voicemail for her and her father and explained that she should come to the [facility] ED if she is having N, V, high output, or dehydration so that we can evaluate her here and determine what is needed for optimization for surgery. I also explained that the physicians and the hospital she is evaluated at can request transfer to [facility]. Patient called in to cancel today's appointment because she going to the Emergency room now and she will call back to reschedule documented in this encounter [facility] 11-12-2024 Telephone encounter Note Patient called in to cancel today's appointment because she going to the Emergency room now and she will call back to reschedule [facility] 11-06-2024 Telephone encounter Note Transitional Care Management (TCM) [facility] Monitoring [facility] Provider Action / FYI: na SUMMARY: Outreach type: INITIAL OUTREACH Discharge Network Status: In-Network Discharge Source of Patient: [facility] TCM Discharge Report Patient discharged from [facility] on 10.26.24. Admitted for Intractable diarrhea . Contact made with patient: No - next outreach attempt will be on next business day. Rico Minor November 06, 2024 4:23 PM [facility] 11-06-2024 Miscellaneous Notes [facility] Provider Action / FYI: na SUMMARY: Outreach type: INITIAL OUTREACH Discharge Network Status: In-Network Discharge Source of Patient: [facility] TCM Discharge Report Patient discharged from [facility] on 10.26.24. Admitted for Intractable diarrhea . Contact made with patient: No - next outreach attempt will be on next . Rico Minor November 06, 2024 4:23 PM documented in this encounter [facility] 11-05-2024 Telephone encounter Note I called Daly and she was disharged from [facility] last week 10/30 to 11/05/24 for dehydration. Pt was put on fluids and fiber and a couple of other medications to slow output. Pt had IVF replenished while inpatient. Pt is drinking water and no sugar powerade. I instructed the patient on drinking solely ORS to include drip drop, liquid IV, no sugar powerade and no sugar G2 or G0. Pt agreed. Pt agreed to labs and in person visit with Dr. Devine on TuesdayNovember 12. Request sent to schedulers. Pt is not on TPN. Patient needs the following rescheduled: UGI SBFT Follow-up with Dr. Montoya for TPN management CT chest w IV con [facility] 11-05-2024 Miscellaneous Notes I called Daly and she was disharged from [facility] last week 10/30 to 11/05/24 for dehydration. Pt was put on fluids and fiber and a couple of other medications to slow output. Pt had IVF replenished while inpatient. Pt is drinking water and no sugar powerade. I instructed the patient on drinking solely ORS to include drip drop, liquid IV, no sugar powerade and no sugar G2 or G0. Pt agreed. Pt agreed to labs and in person visit with Dr. Devine on TuesdayNovember 12. Request sent to schedulers. Pt is not on TPN. Patient needs the following rescheduled: UGI SBFT Follow-up with Dr. Montoya for TPN management CT chest w IV con Patient called in requesting an appointment with Dr. Nilson العراقي an order be put in for this request documented in this encounter [facility] 11-05-2024 Telephone encounter Note Patient called in requesting an appointment with Dr. Devine can an order be put in for this request [facility] 11-05-2024 Note [facility] 10-30-2024 Telephone encounter Note Record ID: [id number] Patient name: Daly Evans Date: October 30, 2024 - 10:36 Administered by: LARRY Protocol: -> Great! Now we are in a secure chat environment. Protecting your health information is important to us. Ok, let's get started. Please verify your name and date of . Please click on the button with your first name. -> Daly Got it. On to the next question... Select the button with your last name. -> Lover Got it, thank you. Please enter your date of in MM/DD/YYYY format:(e.g., 07/15/1971 for Jul 15, 1971) -> 1985 Thank you for verifying your information. I'd like to ask you a few questions about how your recovery is going. Since leaving the hospital, do you have any new or worsening symptoms? -> Yes And how have these symptoms changed since you first noticed them? -> Same [facility] 10-30-2024 Miscellaneous Notes Record ID: [id number] Patient name: Daly Evans Date: October 30, 2024 - 10:36 Administered by: LARRY Protocol: -> Great! Now we are in a secure chat environment. Protecting your health information is important to us. Ok, let's get started. Please verify your name and date of . Please click on the button with your first name. -> Daly Got it. On to the next question... Select the button with your last name. -> Cristina Got it, thank you. Please enter your date of in MM/DD/YYYY format:(e.g., 07/15/1971 for Jul 15, 1971) -> 1985 Thank you for verifying your information. I'd like to ask you a few questions about how your recovery is going. Since leaving the hospital, do you have any new or worsening symptoms? -> Yes And how have these symptoms changed since you first noticed them? -> Same documented in this encounter [facility] 10-26-2024 History of Present illness Narrative Daly Evans is a 39 year old female with history of prediabetes, iron deficiency anemia, vitamin D deficiency, bipolar disorder and substance use disorder. 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 08-21-2024 s/p SBR, ileocecectomy (left in discontinuity) --> 08/22/24 laparotomy, end-loop jejunosotomy. Ascending colon thru rectum/anus remains, but out of continuity. Course further complicated by tibial thrombi s/p tibila arteriotomies and compartment fasciotomies. She was started on TPN for SBS post -op. She was scheduled for TPN follow up in our multidisciplinary clinic, but was unable to attend because she is currently admitted to [facility] for diarrhea exacerbation associated with JONATAN, hyponatremia, and hypokalemia. She will be rescheduled. Daly Evans 10/26/2024 documented in this encounter [facility] 10-26-2024 Note HNO ID: [id number] Author: MORENA PALACIOS LSW Service: Care Management Author Type: Staff Technologist Type: Care Mgt Progress Note Filed: 10/26/2024 12:47 Note Text: CARE MANAGEMENT PROGRESS NOTE SERVICE DATE: 10/26/2024 SERVICE TIME: 12:41 PM LOS: 7 days Chart reviewed. Pt admitted from [facility] for intractable diarrhea. She has an ostomy. Pt is ready for dc today. Insurance states that pt doesn't have a skilled need to return to SNF; she was at SNF and she had IV abx and TPN (now off of both of those). SW met with pt at bedside and explained this. She is agreeable to go home, she is able to do the wound care to her feet herself. She is able to manage her own ostomy but just needs supplies. SW sent referral to [facility]; they confirmed they will set pt up with supplies; Bedside RN will send home extra supplies. Phone number for [facility] placed on dc summary. Pt will discharge to her parents home at: [address] [place], [place]. CHRISTY let Cornelius know this. SIGNATURE: CHANELL Stewart PATIENT NAME: Daly Evans DATE: October 26, 2024 TIME: 12:41 PM [facility] 10-25-2024 Note HNO ID: [id number] Author: WILLIS EMMANUEL DO Service: Hospital Medicine Author Type: Physician Type: Progress Notes Filed: 10/25/2024 11:39 Note Text: PROGRESS NOTE SERVICE DATE: 10/25/2024 SERVICE TIME: 11:38 AM PRIMARY SERVICE: Internal Medicine CHIEF COMPLAINT: Diarrhea INTERVAL HPI: Patient seen and examined, discussed with house staff and RN. No significant overnight issues. BP 98/64 Pulse 98 Temp (Src) 98.3 (Oral) Resp 18 Ht 5' 7 (1.70m) Wt 190 lb 7.6 oz (86.4kg) SpO2 99% LMP 08/29/2024 BMI 29.83 kg/(m2). O2 Therapy: Room Air PHYSICAL EXAM: General: alert and oriented x3, resting comfortably Neck: supple, no hepatojugular reflux or jugular venous distention, no carotid bruits Lungs: clear to auscultation bilaterally, no wheezing, rales, or rhonchi Cardiac: regular rate and rhythm, normal S1 and S2, no murmurs, gallops, or rubs Abdomen: ostomy in place and draining liquid contents, soft, nontender, nondistended, bowel sounds present Extremities: no edema, cyanosis, or clubbing Skin: no rashes or breakdown Lymphatic: no cervical or supraclavicular lymphadenopathy Neurologic: cranial nerves II-XII are grossly intact Psychiatry: normal affect, no hallucinations, no suicidal ideation Current Facility-Administered Medications Medication Dose Route Frequency NaCl 0.9% iv flush bag 20 mL INTRAVENOUS PRN aluminum-magnesium hydroxide-simethicone 200-200-20 mg/5 mL 30 mL 30 mL ORAL DAILY PRN ondansetron 4 mg tab(s) (ZOFRAN) 4 mg ORAL q 6 H PRN Or ondansetron (PF) 4 mg injection (ZOFRAN) 4 mg INTRAVENOUS q 6 H PRN polyethylene glycol 3350 17 g packet 17 g ORAL DAILY PRN acetaminophen 650 mg tab(s) (TYLENOL) 650 mg ORAL q 6 H PRN melatonin 3 mg tab(s) 3 mg ORAL DAILY (8 PM) aspirin 81 mg chewable tab(s) 81 mg ORAL DAILY atorvastatin 40 mg tab(s) (LIPITOR) 40 mg ORAL DAILY gabapentin 600 mg cap(s) (NEURONTIN) 600 mg ORAL q 8 H magnesium oxide 400 mg tab(s) (MAG-OX) 400 mg ORAL DAILY OLANZapine 20 mg tab(s) (ZYPREXA) 20 mg ORAL AT BEDTIME enoxaparin 90 mg injection (LOVENOX) 90 mg SUBCUTANEOUS BID pantoprazole DR 40 mg tab(s) (PROTONIX) 40 mg ORAL BID AC (0600/1600) escitalopram oxalate 20 mg tab(s) (LEXAPRO) 20 mg ORAL DAILY loperamide 4 mg cap(s) (IMODIUM) 4 mg ORAL TID NaCl 0.9% iv infusion 75 mL/hr INTRAVENOUS CONTINUOUS metoprolol 5 mg injection (LOPRESSOR) 5 mg INTRAVENOUS q 4 H PRN DATA: WBC (k/uL) Date Value 10/25/2024 6.18 RBC (m/uL) Date Value 10/25/2024 4.29 Hemoglobin (g/dL) Date Value 10/25/2024 10.3 (L) Hematocrit (%) Date Value 10/25/2024 33.3 (L) MCV (fL) Date Value 10/25/2024 77.6 (L) MCH (pg) Date Value 10/25/2024 24.0 (L) MCHC (g/dL) Date Value 10/25/2024 30.9 RDW-CV (%) Date Value 10/25/2024 14.8 Platelet Count (k/uL) Date Value 10/25/2024 364 MPV (fL) Date Value 10/25/2024 9.3 Glucose (mg/dL) Date Value 10/25/2024 89 BUN (mg/dL) Date Value 10/25/2024 11 Creatinine (mg/dL) Date Value 10/25/2024 1.00 (H) Sodium (mmol/L) Date Value 10/25/2024 135 (L) Potassium (mmol/L) Date Value 10/25/2024 3.4 (L) Chloride (mmol/L) Date Value 10/25/2024 93 (L) CO2 (mmol/L) Date Value 10/25/2024 33 (H) Protein, Total (g/dL) Date Value 10/25/2024 7.7 Albumin (g/dL) Date Value 10/25/2024 3.0 (L) Calcium, Total (mg/dL) Date Value 10/25/2024 9.6 Alkaline Phosphatase (U/L) Date Value 10/25/2024 137 (H) Bilirubin, Total (mg/dL) Date Value 10/25/2024 1.3 (H) AST (U/L) Date Value 10/25/2024 16 ALT (U/L) Date Value 10/25/2024 14 SSA Antibody IgG (AI) Date Value 02/05/2022 <0.2 SSB Antibody (AI) Date Value 02/05/2022 <0.2 Rheumatoid Factor (IU/mL) Date Value 02/05/2022 <10 ASSESSMENT AND PLAN: Diarrhea 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 ED due to high output ostomy She had evidence of renal failure as well as multiple electrolyte abnormalities (see below) Gastroenterology is following C. diff negative Stool PCR negative Continue scheduled Imodium 4 mg TID Acute kidney injury Creatinine 2.[address] [facility] ED Likely secondary to GI losses Creatinine now normalized Hyponatremia Sodium [address] [facility] ED Likely secondary to GI losses Sodium now 135 today Hypokalemia Potassium 3.[address] [facility] ED Likely secondary to GI losses Still 3.4 today Will again supplement Left foot discoloration, ?gangrene Left toes are black, per patient this began while she was at [facility] Chart review indicates she had bilateral lower extremity tibial thromboemboli and underwent thromboembolectomy of the anterior tibial, posterior tibial, and peroneal arteries Podiatry following X-rays obtained on 10/23 showed no evidence of osteomyelitis I spoke with Dr. Garcia yesterday, he has no immediate plans for surgical intervention th (more content not included)... [facility] 10-24-2024 Note HNO ID: [id number] Author: WILLIS EMMANUEL DO Service: Hospital Medicine Author Type: Physician Type: Progress Notes Filed: 10/24/2024 16:53 Note Text: PROGRESS NOTE SERVICE DATE: 10/24/2024 SERVICE TIME: 4:50 PM PRIMARY SERVICE: Internal Medicine CHIEF COMPLAINT: Diarrhea INTERVAL HPI: Patient seen and examined, discussed with house staff and RN. Bedside nurse patient has been tachycardic when ambulating. BP 103/62 Pulse 112 Temp (Src) 98.7 (Oral) Resp 18 Ht 5' 7 (1.70m) Wt 190 lb 7.6 oz (86.4kg) SpO2 100% LMP 08/29/2024 BMI 29.83 kg/(m2). O2 Therapy: Room Air PHYSICAL EXAM: General: alert and oriented x3, resting comfortably Neck: supple, no hepatojugular reflux or jugular venous distention, no carotid bruits Lungs: clear to auscultation bilaterally, no wheezing, rales, or rhonchi Cardiac: regular rate and rhythm, normal S1 and S2, no murmurs, gallops, or rubs Abdomen: ostomy in place and draining liquid contents, soft, nontender, nondistended, bowel sounds present Extremities: no edema, cyanosis, or clubbing Skin: no rashes or breakdown Lymphatic: no cervical or supraclavicular lymphadenopathy Neurologic: cranial nerves II-XII are grossly intact Psychiatry: normal affect, no hallucinations, no suicidal ideation Current Facility-Administered Medications Medication Dose Route Frequency NaCl 0.9% iv flush bag 20 mL INTRAVENOUS PRN aluminum-magnesium hydroxide-simethicone 200-200-20 mg/5 mL 30 mL 30 mL ORAL DAILY PRN ondansetron 4 mg tab(s) (ZOFRAN) 4 mg ORAL q 6 H PRN Or ondansetron (PF) 4 mg injection (ZOFRAN) 4 mg INTRAVENOUS q 6 H PRN polyethylene glycol 3350 17 g packet 17 g ORAL DAILY PRN acetaminophen 650 mg tab(s) (TYLENOL) 650 mg ORAL q 6 H PRN melatonin 3 mg tab(s) 3 mg ORAL DAILY (8 PM) aspirin 81 mg chewable tab(s) 81 mg ORAL DAILY atorvastatin 40 mg tab(s) (LIPITOR) 40 mg ORAL DAILY gabapentin 600 mg cap(s) (NEURONTIN) 600 mg ORAL q 8 H magnesium oxide 400 mg tab(s) (MAG-OX) 400 mg ORAL DAILY OLANZapine 20 mg tab(s) (ZYPREXA) 20 mg ORAL AT BEDTIME enoxaparin 90 mg injection (LOVENOX) 90 mg SUBCUTANEOUS BID pantoprazole DR 40 mg tab(s) (PROTONIX) 40 mg ORAL BID AC (0600/1600) escitalopram oxalate 20 mg tab(s) (LEXAPRO) 20 mg ORAL DAILY loperamide 4 mg cap(s) (IMODIUM) 4 mg ORAL TID NaCl 0.9% iv infusion 75 mL/hr INTRAVENOUS CONTINUOUS metoprolol 5 mg injection (LOPRESSOR) 5 mg INTRAVENOUS q 4 H PRN DATA: WBC (k/uL) Date Value 10/24/2024 6.06 RBC (m/uL) Date Value 10/24/2024 4.28 Hemoglobin (g/dL) Date Value 10/24/2024 10.3 (L) Hematocrit (%) Date Value 10/24/2024 32.6 (L) MCV (fL) Date Value 10/24/2024 76.2 (L) MCH (pg) Date Value 10/24/2024 24.1 (L) MCHC (g/dL) Date Value 10/24/2024 31.6 RDW-CV (%) Date Value 10/24/2024 14.8 Platelet Count (k/uL) Date Value 10/24/2024 408 (H) MPV (fL) Date Value 10/24/2024 8.7 (L) Glucose (mg/dL) Date Value 10/24/2024 101 (H) BUN (mg/dL) Date Value 10/24/2024 10 Creatinine (mg/dL) Date Value 10/24/2024 1.04 (H) Sodium (mmol/L) Date Value 10/24/2024 133 (L) Potassium (mmol/L) Date Value 10/24/2024 3.4 (L) Chloride (mmol/L) Date Value 10/24/2024 92 (L) CO2 (mmol/L) Date Value 10/24/2024 31 Protein, Total (g/dL) Date Value 10/24/2024 7.5 Albumin (g/dL) Date Value 10/24/2024 3.1 (L) Calcium, Total (mg/dL) Date Value 10/24/2024 9.6 Alkaline Phosphatase (U/L) Date Value 10/24/2024 131 (H) Bilirubin, Total (mg/dL) Date Value 10/24/2024 1.2 (H) AST (U/L) Date Value 10/24/2024 12 ALT (U/L) Date Value 10/24/2024 15 SSA Antibody IgG (AI) Date Value 02/05/2022 <0.2 SSB Antibody (AI) Date Value 02/05/2022 <0.2 Rheumatoid Factor (IU/mL) Date Value 02/05/2022 <10 ASSESSMENT AND PLAN: Diarrhea 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 ED due to high output ostomy She had evidence of renal failure as well as multiple electrolyte abnormalities (see below) Gastroenterology is following C. diff negative Stool PCR negative Continue scheduled Imodium 4 mg TID Acute kidney injury Creatinine 2.[address] [facility] ED Likely secondary to GI losses Creatinine now normalized Hyponatremia Sodium [address] [facility] ED Likely secondary to GI losses Sodium now 133 today Hypokalemia Potassium 3.[address] [facility] ED Likely secondary to GI losses Still 3.4 today Will again supplement Left foot discoloration, ?gangrene Left toes are black, per patient this began while she was at [facility] Chart review indicates she had bilateral lower extremity tibial thromboemboli and underwent thromboembolectomy of the anterior tibial, posterior tibial, and peroneal arteries Podiatry following X-rays obtained yesterday showed no evidence of osteomyelitis I spoke with Dr. Garcia today, he has no immediate (more content not included)... [facility] 10-24-2024 Note HNO ID: [id number] Author: MORENA PALACIOS LSW Service: Care Management Author Type: Staff Technologist Type: Care Mgt Progress Note Filed: 10/24/2024 12:21 Note Text: CARE MANAGEMENT PROGRESS NOTE SERVICE DATE: 10/24/2024 SERVICE TIME: 9:36 AM LOS: 5 days Chart reviewed. Pt admitted from [facility] for intractable diarrhea; she has an ostomy. GI consulted for high ostomy output, they signed off yesterday 10/23. Podiatry consulted for left foot discoloration/gangrene. DC plan is to return to [facility] for wound care; precert started today. Post acute checklist on chart, will need wheelchair transport. SIGNATURE: CHANELL Stewart PATIENT NAME: Daly Evans DATE: October 24, 2024 TIME: 9:36 AM [facility] 10-23-2024 Note HNO ID: [id number] Author: WILLIS EMMANUEL DO Service: Hospital Medicine Author Type: Physician Type: Progress Notes Filed: 10/24/2024 07:12 Note Text: PROGRESS NOTE SERVICE DATE: 10/23/2024 SERVICE TIME: 11:54 PM PRIMARY SERVICE: Internal Medicine CHIEF COMPLAINT: Diarrhea INTERVAL HPI: Patient seen and examined, discussed with house staff and RN. Per bedside nurse patient continues to have high output out of her ostomy. BP 107/60 Pulse 104 Temp (Src) 98.2 (Oral) Resp 16 Ht 5' 7 (1.70m) Wt 190 lb 7.6 oz (86.4kg) SpO2 98% LMP 08/29/2024 BMI 29.83 kg/(m2). O2 Therapy: Room Air PHYSICAL EXAM: General: alert and oriented x3, resting comfortably Neck: supple, no hepatojugular reflux or jugular venous distention, no carotid bruits Lungs: clear to auscultation bilaterally, no wheezing, rales, or rhonchi Cardiac: regular rate and rhythm, normal S1 and S2, no murmurs, gallops, or rubs Abdomen: ostomy in place and draining liquid contents, soft, nontender, nondistended, bowel sounds present Extremities: no edema, cyanosis, or clubbing Skin: no rashes or breakdown Lymphatic: no cervical or supraclavicular lymphadenopathy Neurologic: cranial nerves II-XII are grossly intact Psychiatry: normal affect, no hallucinations, no suicidal ideation Current Facility-Administered Medications Medication Dose Route Frequency NaCl 0.9% iv flush bag 20 mL INTRAVENOUS PRN aluminum-magnesium hydroxide-simethicone 200-200-20 mg/5 mL 30 mL 30 mL ORAL DAILY PRN ondansetron 4 mg tab(s) (ZOFRAN) 4 mg ORAL q 6 H PRN Or ondansetron (PF) 4 mg injection (ZOFRAN) 4 mg INTRAVENOUS q 6 H PRN polyethylene glycol 3350 17 g packet 17 g ORAL DAILY PRN acetaminophen 650 mg tab(s) (TYLENOL) 650 mg ORAL q 6 H PRN melatonin 3 mg tab(s) 3 mg ORAL DAILY (8 PM) aspirin 81 mg chewable tab(s) 81 mg ORAL DAILY atorvastatin 40 mg tab(s) (LIPITOR) 40 mg ORAL DAILY gabapentin 600 mg cap(s) (NEURONTIN) 600 mg ORAL q 8 H magnesium oxide 400 mg tab(s) (MAG-OX) 400 mg ORAL DAILY OLANZapine 20 mg tab(s) (ZYPREXA) 20 mg ORAL AT BEDTIME enoxaparin 90 mg injection (LOVENOX) 90 mg SUBCUTANEOUS BID pantoprazole DR 40 mg tab(s) (PROTONIX) 40 mg ORAL BID AC (0600/1600) escitalopram oxalate 20 mg tab(s) (LEXAPRO) 20 mg ORAL DAILY loperamide 4 mg cap(s) (IMODIUM) 4 mg ORAL TID DATA: WBC (k/uL) Date Value 10/23/2024 5.26 RBC (m/uL) Date Value 10/23/2024 3.92 Hemoglobin (g/dL) Date Value 10/23/2024 9.4 (L) Hematocrit (%) Date Value 10/23/2024 30.5 (L) MCV (fL) Date Value 10/23/2024 77.8 (L) MCH (pg) Date Value 10/23/2024 24.0 (L) MCHC (g/dL) Date Value 10/23/2024 30.8 RDW-CV (%) Date Value 10/23/2024 14.8 Platelet Count (k/uL) Date Value 10/23/2024 413 (H) MPV (fL) Date Value 10/23/2024 8.6 (L) Glucose (mg/dL) Date Value 10/23/2024 98 BUN (mg/dL) Date Value 10/23/2024 7 Creatinine (mg/dL) Date Value 10/23/2024 0.90 Sodium (mmol/L) Date Value 10/23/2024 137 Potassium (mmol/L) Date Value 10/23/2024 3.4 (L) Chloride (mmol/L) Date Value 10/23/2024 98 CO2 (mmol/L) Date Value 10/23/2024 29 Protein, Total (g/dL) Date Value 10/23/2024 6.9 Albumin (g/dL) Date Value 10/23/2024 2.8 (L) Calcium, Total (mg/dL) Date Value 10/23/2024 9.1 Alkaline Phosphatase (U/L) Date Value 10/23/2024 118 (H) Bilirubin, Total (mg/dL) Date Value 10/23/2024 0.9 AST (U/L) Date Value 10/23/2024 14 ALT (U/L) Date Value 10/23/2024 15 SSA Antibody IgG (AI) Date Value 02/05/2022 <0.2 SSB Antibody (AI) Date Value 02/05/2022 <0.2 Rheumatoid Factor (IU/mL) Date Value 02/05/2022 <10 ASSESSMENT AND PLAN: Diarrhea 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 ED due to high output ostomy She had evidence of renal failure as well as multiple electrolyte abnormalities (see below) Gastroenterology is following C. diff negative Stool PCR negative Continue scheduled Imodium, increase today to 4 mg TID Acute kidney injury Creatinine 2.[address] [facility] ED Likely secondary to GI losses Creatinine now normalized Hyponatremia Sodium [address] [facility] ED Likely secondary to GI losses Sodium now 133 today Hypokalemia Potassium 3.[address] [facility] ED Likely secondary to GI losses Still 3.4 today Will again supplement Left foot discoloration, ?gangrene Left toes are black, per patient this began while she was at [facility] Chart review indicates she had bilateral lower extremity tibial thromboemboli and underwent thromboembolectomy of the anterior tibial, posterior tibial, and peroneal arteries Continue therapeutic Lovenox Podiatry now following X-rays obtained today showed no evidence of osteomyelitis Continue local wound care Chronic comorbidities Bipolar disorder Anxiety Hx of substance abuse SIGNATURE: Willis Emmanuel, (more content not included)... [facility] 10-23-2024 Note HNO ID: [id number] Author: YOHANA GARCIA III, DPM Service: Podiatry Author Type: Physician Type: Progress Notes Filed: 10/23/2024 17:49 Note Text: Podiatry Progress Note: X-rays reviewed. No signs of fracture or osteomyelitis or soft tissue gas. Gangrene is dry and stable. Continue wound care. Will follow as outpatient. Yohana Garcia III, DPM FACFAS 5:48 PM [facility] 10-22-2024 Note HNO ID: [id number] Author: WILLIS EMMANUEL DO Service: Hospital Medicine Author Type: Physician Type: Progress Notes Filed: 10/22/2024 15:35 Note Text: PROGRESS NOTE SERVICE DATE: 10/22/2024 SERVICE TIME: 3:28 PM PRIMARY SERVICE: Internal Medicine CHIEF COMPLAINT: Diarrhea INTERVAL HPI: Patient seen and examined, discussed with house staff and RN. Per bedside nurse patient continues to have high output out of her ostomy. BP 97/59 Pulse 80 Temp (Src) 98.4 (Oral) Resp 18 Ht 5' 7 (1.70m) Wt 192 lb 7.4 oz (87.3kg) SpO2 98% LMP 08/29/2024 BMI 30.14 kg/(m2). O2 Therapy: Room Air PHYSICAL EXAM: General: alert and oriented x3, resting comfortably Neck: supple, no hepatojugular reflux or jugular venous distention, no carotid bruits Lungs: clear to auscultation bilaterally, no wheezing, rales, or rhonchi Cardiac: regular rate and rhythm, normal S1 and S2, no murmurs, gallops, or rubs Abdomen: ostomy in place and draining liquid contents, soft, nontender, nondistended, bowel sounds present Extremities: no edema, cyanosis, or clubbing Skin: no rashes or breakdown Lymphatic: no cervical or supraclavicular lymphadenopathy Neurologic: cranial nerves II-XII are grossly intact Psychiatry: normal affect, no hallucinations, no suicidal ideation Current Facility-Administered Medications Medication Dose Route Frequency NaCl 0.9% iv flush bag 20 mL INTRAVENOUS PRN aluminum-magnesium hydroxide-simethicone 200-200-20 mg/5 mL 30 mL 30 mL ORAL DAILY PRN ondansetron 4 mg tab(s) (ZOFRAN) 4 mg ORAL q 6 H PRN Or ondansetron (PF) 4 mg injection (ZOFRAN) 4 mg INTRAVENOUS q 6 H PRN polyethylene glycol 3350 17 g packet 17 g ORAL DAILY PRN acetaminophen 650 mg tab(s) (TYLENOL) 650 mg ORAL q 6 H PRN melatonin 3 mg tab(s) 3 mg ORAL DAILY (8 PM) lactated ringers iv infusion 150 mL/hr INTRAVENOUS CONTINUOUS aspirin 81 mg chewable tab(s) 81 mg ORAL DAILY atorvastatin 40 mg tab(s) (LIPITOR) 40 mg ORAL DAILY gabapentin 600 mg cap(s) (NEURONTIN) 600 mg ORAL q 8 H magnesium oxide 400 mg tab(s) (MAG-OX) 400 mg ORAL DAILY OLANZapine 20 mg tab(s) (ZYPREXA) 20 mg ORAL AT BEDTIME enoxaparin 90 mg injection (LOVENOX) 90 mg SUBCUTANEOUS BID pantoprazole DR 40 mg tab(s) (PROTONIX) 40 mg ORAL BID AC (0600/1600) escitalopram oxalate 20 mg tab(s) (LEXAPRO) 20 mg ORAL DAILY loperamide 2 mg cap(s) (IMODIUM) 2 mg ORAL QID potassium chloride ER 40 mEq tab(s) (KLOR-CON) 40 mEq ORAL ONCE magnesium sulfate iv piggyback in sterile water 2 g 50 mL 2 g INTRAVENOUS ONCE DATA: WBC (k/uL) Date Value 10/22/2024 5.87 RBC (m/uL) Date Value 10/22/2024 3.57 (L) Hemoglobin (g/dL) Date Value 10/22/2024 8.8 (L) Hematocrit (%) Date Value 10/22/2024 28.0 (L) MCV (fL) Date Value 10/22/2024 78.4 (L) MCH (pg) Date Value 10/22/2024 24.6 (L) MCHC (g/dL) Date Value 10/22/2024 31.4 RDW-CV (%) Date Value 10/22/2024 14.6 Platelet Count (k/uL) Date Value 10/22/2024 396 MPV (fL) Date Value 10/22/2024 8.7 (L) Glucose (mg/dL) Date Value 10/22/2024 83 BUN (mg/dL) Date Value 10/22/2024 9 Creatinine (mg/dL) Date Value 10/22/2024 0.95 Sodium (mmol/L) Date Value 10/22/2024 136 Potassium (mmol/L) Date Value 10/22/2024 3.2 (L) Chloride (mmol/L) Date Value 10/22/2024 98 CO2 (mmol/L) Date Value 10/22/2024 30 Protein, Total (g/dL) Date Value 10/22/2024 6.4 Albumin (g/dL) Date Value 10/22/2024 2.6 (L) Calcium, Total (mg/dL) Date Value 10/22/2024 8.9 Alkaline Phosphatase (U/L) Date Value 10/22/2024 110 Bilirubin, Total (mg/dL) Date Value 10/22/2024 0.9 AST (U/L) Date Value 10/22/2024 14 ALT (U/L) Date Value 10/22/2024 15 SSA Antibody IgG (AI) Date Value 02/05/2022 <0.2 SSB Antibody (AI) Date Value 02/05/2022 <0.2 Rheumatoid Factor (IU/mL) Date Value 02/05/2022 <10 ASSESSMENT AND PLAN: Diarrhea 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 ED due to high output ostomy She had evidence of renal failure as well as multiple electrolyte abnormalities (see below) Gastroenterology is following C. diff negative Stool PCR negative Scheduled Imodium started today (2 mg QID) Acute kidney injury Creatinine 2.[address] [facility] ED Likely secondary to GI losses Creatinine now normalized Will stop IV fluids Hyponatremia Sodium [address] [facility] ED Likely secondary to GI losses Sodium now 136 today Stopping IV fluids Hypokalemia Potassium 3.[address] [facility] ED Likely secondary to GI losses Still 3.2 today Will again supplement Left foot discoloration, ?gangrene Left toes are black, per patient this began [facility] at [facility] Chart review indicates she had bilateral lower extremity tibial thromboemboli and underwent thromboembolectomy of the anterior tibial, posterior tibial, and peroneal arteries Continue ther (more content not included)... [facility] 10-22-2024 Note HNO ID: [id number] Author: WILLIS EMMANUEL DO Service: Hospital Medicine Author Type: Physician Type: Progress Notes Filed: 10/22/2024 15:27 Note Text: Documentation Query Please clarify the diagnosis associated with the clinical indicators for this patient Provider Response: Hypokalemia supported by: Oral Supplement of Potassium chloride and IV Infusion of Potassium chloride This document will become part of the patient's medical record. [facility] 10-22-2024 Note HNO ID: [id number] Author: MORENA PALACIOS LSW Service: Care Management Author Type: Staff Technologist Type: Care Mgt Initial Assessment Filed: 10/22/2024 12:51 Note Text: CARE MANAGEMENT: ASSESSMENT AND DISCHARGE PLAN SERVICE DATE: October 22, 2024 SERVICE TIME: 12:43 PM PCP: Fredrick Boland DO Primary Contact: Extended Emergency Contact Information Primary Emergency Contact: Ernst Evans Mobile Relation: Father Secondary Emergency Contact: Mary Evans [facility] Relation: Mother Admission Status: Inpatient Insurance Provider: CARLA MU[employer]OZ MEDICAID Discharge Planning requested by: Potential Transition Plans Advance Directives Current Living Arrangements and Support Lives with: Type of Residence: Support: Current Services/Equipment Discharge Planning Patient Goal(s): [place] of Choice Explained: Are you interested in bedside delivery of your medications? No Discharge Planning Participant(s): Patient/Family Comments: Caregiver Assessment: Transport at Discharge: Needs Prior to Discharge: Intimate Partner Violence We have begun to talk to patients about safe and healthy relationships because it can have a large impact on your health. Do you feel safe around your partner or ex-partner?: Yes Food Insecurity Within the past 12 months, you worried that your food would run out before you got the money to buy more.: Never true Within the past 12 months, the food you bought just didn't last and you didn't have money to get more.: Never true Transportation Needs In the past 12 months, has lack of transportation kept you from medical appointments or from getting medications?: No In the past 12 months, has lack of transportation kept you from meetings, work, or from getting things needed for daily living?: No Housing Stability In the last 12 months, was there a time when you were not able to pay the mortgage or rent on time?: No In the past 12 months, how many times have you moved where you were living?: 1 At any time in the past 12 months, were you homeless or living in a skilled nursing (including now)?: No Utilities In the past 12 months has the [employer], gas, oil, or water [employer] threatened to shut off services in your home?: No Post-Acute Discharge Plan: Chart reviewed. Pt admitted from [facility] for intractable diarrhea. She has an extensive medical history: [facility]: 08/20/2024: Small bowel resection, Ileocecectomy with general surgery. 08/20/24: Bilateral below-knee popliteal cutdown, Thromboembolectomy of AT, PT and peroneal arteries. Primary repair of tibial arteriotomies. Bilateral lower extremity 4 compartment fasciotomies with vascular surgery. 08/22/2024: Second look laparotomy, loop-end jejunosotomy. 08/23/2024: BLE fasciotomy closure. She is currently having high ostomy output. GI consulted. Pt will return to [facility] at discharge. Will need auth to return; she was skilled for wound care. Will need transportation. SIGNATURE: CHANELL Stewart PATIENT NAME: Daly Evans DATE: October 22, 2024 TIME: 12:43 PM [facility] 10-21-2024 Note HNO ID: [id number] Author: WILLIS EMMANUEL DO Service: Hospital Medicine Author Type: Physician Type: Progress Notes Filed: 10/22/2024 09:06 Note Text: PROGRESS NOTE SERVICE DATE: 10/21/2024 SERVICE TIME: 11:49 PM PRIMARY SERVICE: Internal Medicine CHIEF COMPLAINT: Diarrhea INTERVAL HPI: Patient seen and examined, discussed with house staff and RN. Per bedside nurse patient is having high output out of her ostomy. BP 94/69 Pulse 95 Temp (Src) 98.6 (Oral) Resp 16 Ht 5' 7 (1.70m) Wt 192 lb 7.4 oz (87.3kg) SpO2 99% LMP 08/29/2024 BMI 30.14 kg/(m2). O2 Therapy: Room Air PHYSICAL EXAM: General: alert and oriented x3, resting comfortably Neck: supple, no hepatojugular reflux or jugular venous distention, no carotid bruits Lungs: clear to auscultation bilaterally, no wheezing, rales, or rhonchi Cardiac: regular rate and rhythm, normal S1 and S2, no murmurs, gallops, or rubs Abdomen: ostomy in place and draining liquid contents, soft, nontender, nondistended, bowel sounds present Extremities: no edema, cyanosis, or clubbing Skin: no rashes or breakdown Lymphatic: no cervical or supraclavicular lymphadenopathy Neurologic: cranial nerves II-XII are grossly intact Psychiatry: normal affect, no hallucinations, no suicidal ideation Current Facility-Administered Medications Medication Dose Route Frequency NaCl 0.9% iv flush bag 20 mL INTRAVENOUS PRN aluminum-magnesium hydroxide-simethicone 200-200-20 mg/5 mL 30 mL 30 mL ORAL DAILY PRN ondansetron 4 mg tab(s) (ZOFRAN) 4 mg ORAL q 6 H PRN Or ondansetron (PF) 4 mg injection (ZOFRAN) 4 mg INTRAVENOUS q 6 H PRN polyethylene glycol 3350 17 g packet 17 g ORAL DAILY PRN acetaminophen 650 mg tab(s) (TYLENOL) 650 mg ORAL q 6 H PRN melatonin 3 mg tab(s) 3 mg ORAL DAILY (8 PM) lactated ringers iv infusion 150 mL/hr INTRAVENOUS CONTINUOUS aspirin 81 mg chewable tab(s) 81 mg ORAL DAILY atorvastatin 40 mg tab(s) (LIPITOR) 40 mg ORAL DAILY gabapentin 600 mg cap(s) (NEURONTIN) 600 mg ORAL q 8 H magnesium oxide 400 mg tab(s) (MAG-OX) 400 mg ORAL DAILY OLANZapine 20 mg tab(s) (ZYPREXA) 20 mg ORAL AT BEDTIME enoxaparin 90 mg injection (LOVENOX) 90 mg SUBCUTANEOUS BID pantoprazole DR 40 mg tab(s) (PROTONIX) 40 mg ORAL BID AC (0600/1600) escitalopram oxalate 20 mg tab(s) (LEXAPRO) 20 mg ORAL DAILY loperamide 2 mg cap(s) (IMODIUM) 2 mg ORAL TID DATA: WBC (k/uL) Date Value 10/21/2024 5.24 RBC (m/uL) Date Value 10/21/2024 3.86 (L) Hemoglobin (g/dL) Date Value 10/21/2024 9.3 (L) Hematocrit (%) Date Value 10/21/2024 31.0 (L) MCV (fL) Date Value 10/21/2024 80.3 MCH (pg) Date Value 10/21/2024 24.1 (L) MCHC (g/dL) Date Value 10/21/2024 30.0 (L) RDW-CV (%) Date Value 10/21/2024 14.6 Platelet Count (k/uL) Date Value 10/21/2024 441 (H) MPV (fL) Date Value 10/21/2024 8.9 (L) Glucose (mg/dL) Date Value 10/21/2024 140 (H) BUN (mg/dL) Date Value 10/21/2024 9 Creatinine (mg/dL) Date Value 10/21/2024 0.98 (H) Sodium (mmol/L) Date Value 10/21/2024 135 (L) Potassium (mmol/L) Date Value 10/21/2024 2.8 (L) Chloride (mmol/L) Date Value 10/21/2024 100 CO2 (mmol/L) Date Value 10/21/2024 26 Protein, Total (g/dL) Date Value 10/21/2024 6.7 Albumin (g/dL) Date Value 10/21/2024 2.8 (L) Calcium, Total (mg/dL) Date Value 10/21/2024 9.1 Alkaline Phosphatase (U/L) Date Value 10/21/2024 117 Bilirubin, Total (mg/dL) Date Value 10/21/2024 0.9 AST (U/L) Date Value 10/21/2024 13 ALT (U/L) Date Value 10/21/2024 19 SSA Antibody IgG (AI) Date Value 02/05/2022 <0.2 SSB Antibody (AI) Date Value 02/05/2022 <0.2 Rheumatoid Factor (IU/mL) Date Value 02/05/2022 <10 ASSESSMENT AND PLAN: Diarrhea 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 ED due to high output ostomy She had evidence of renal failure as well as multiple electrolyte abnormalities (see below) Gastroenterology is following C. diff negative Stool PCR collected, results pending Antimotility agent being deferred for now until infectious etiology is ruled out Acute kidney injury Creatinine 2.[address] [facility] ED Likely secondary to GI losses Continue IV fluids via lactated Ringer's at 150 cc/hour Creatinine now normalized Hyponatremia Sodium [address] [facility] ED Likely secondary to GI losses Continue IV fluids as outlined above Sodium now 135 today Hypokalemia Potassium 3.[address] [facility] ED Likely secondary to GI losses Still 2.8 today Will supplement Chronic comorbidities Hx of DVT Bipolar disorder Anxiety Hx of substance abuse SIGNATURE: Willis Emmanuel DO PATIENT NAME: Daly Evans DATE: October 21, 2024 TIME: 11:49 PM [facility] 10-21-2024 Note HNO ID: [id number] Author: TUNG JENNINGS MD Service: Gastroenterology Author Type: Physician Type: Progress Notes Filed: 10/21/2024 12:14 Note Text: GASTROENTEROLOGY SERVICE CONSULT PROGRESS NOTE SERVICE DATE: 10/21/2024 SERVICE TIME: 12:09 PM Subjective INTERVAL HPI: Patient had a 2 L ostomy output over the last 24 hours Current Facility-Administered Medications Medication Dose Route Frequency NaCl 0.9% iv flush bag 20 mL INTRAVENOUS PRN aluminum-magnesium hydroxide-simethicone 200-200-20 mg/5 mL 30 mL 30 mL ORAL DAILY PRN ondansetron 4 mg tab(s) (ZOFRAN) 4 mg ORAL q 6 H PRN Or ondansetron (PF) 4 mg injection (ZOFRAN) 4 mg INTRAVENOUS q 6 H PRN polyethylene glycol 3350 17 g packet 17 g ORAL DAILY PRN acetaminophen 650 mg tab(s) (TYLENOL) 650 mg ORAL q 6 H PRN melatonin 3 mg tab(s) 3 mg ORAL DAILY (8 PM) lactated ringers iv infusion 150 mL/hr INTRAVENOUS CONTINUOUS aspirin 81 mg chewable tab(s) 81 mg ORAL DAILY atorvastatin 40 mg tab(s) (LIPITOR) 40 mg ORAL DAILY gabapentin 600 mg cap(s) (NEURONTIN) 600 mg ORAL q 8 H magnesium oxide 400 mg tab(s) (MAG-OX) 400 mg ORAL DAILY OLANZapine 20 mg tab(s) (ZYPREXA) 20 mg ORAL AT BEDTIME enoxaparin 90 mg injection (LOVENOX) 90 mg SUBCUTANEOUS BID pantoprazole DR 40 mg tab(s) (PROTONIX) 40 mg ORAL BID AC (0600/1600) escitalopram oxalate 20 mg tab(s) (LEXAPRO) 20 mg ORAL DAILY loperamide 2 mg cap(s) (IMODIUM) 2 mg ORAL TID PRN potassium chloride iv piggyback 20 mEq/100 mL 20 mEq INTRAVENOUS q 1 H Objective PHYSICAL EXAM: BP 94/63 Pulse 98 Temp (Src) 98.4 (Oral) Resp 16 Ht 5' 7 (1.70m) Wt 192 lb 7.4 oz (87.3kg) SpO2 99% LMP 08/29/2024 BMI 30.14 kg/(m2). O2 Therapy: Room Air PHYSICAL EXAM Constitutional: No acute distress HEENT: clear sclera Resp: Respiratory effort: normal Cardiovascular: RRR GI: Soft, Non-tender, Bowel sounds present, and Non-distended, negative for ascites ostomy output light brown mostly liquid content Integumentary: Warm and Dry Musculoskeletal: No deformities Neurological/Psychiatric: Oriented to time, place AND person negative for asterixis DATA: Diagnostic tests reviewed for today's visit: Most recent labs and imaging results. Impression/Recommendations Patient with worsening ostomy output in the settings of short gut syndrome - Will rule out infectious etiology stool studies were ordered, collected this morning pending results - Will schedule Imodium at this time 3 times a day due to large ostomy output - Appreciated nutrition diet and supplementation recommendation - She should be avoiding hyper and hypotonic fluids such as soda coffee or tea, but consider drinking more oral rehydration solution - Appreciated detail ostomy output charting we will follow this closely goal of ostomy output less than 800 Inpatient GI will follow SIGNATURE: Tung Jennings MD PATIENT NAME: Daly Evans DATE: October 21, 2024 TIME: 12:09 PM PAGER: [facility] 10-20-2024 Note HNO ID: [id number] Author: WILLIS EMMANUEL DO Service: Hospital Medicine Author Type: Physician Type: Progress Notes Filed: 10/22/2024 09:03 Note Text: PROGRESS NOTE SERVICE DATE: 10/20/2024 SERVICE TIME: 4:15 PM PRIMARY SERVICE: Internal Medicine CHIEF COMPLAINT: Diarrhea INTERVAL HPI: Patient seen and examined, discussed with house staff and RN. Per bedside nurse patient is having high output out of her ostomy. BP 98/67 Pulse 90 Temp (Src) 97.9 (Oral) Resp 18 Ht 5' 7 (1.70m) Wt 192 lb 7.4 oz (87.3kg) SpO2 100% LMP 08/29/2024 BMI 30.14 kg/(m2). O2 Therapy: Room Air PHYSICAL EXAM: General: alert and oriented x3, resting comfortably Neck: supple, no hepatojugular reflux or jugular venous distention, no carotid bruits Lungs: clear to auscultation bilaterally, no wheezing, rales, or rhonchi Cardiac: regular rate and rhythm, normal S1 and S2, no murmurs, gallops, or rubs Abdomen: ostomy in place and draining liquid contents, soft, nontender, nondistended, bowel sounds present Extremities: no edema, cyanosis, or clubbing Skin: no rashes or breakdown Lymphatic: no cervical or supraclavicular lymphadenopathy Neurologic: cranial nerves II-XII are grossly intact Psychiatry: normal affect, no hallucinations, no suicidal ideation Current Facility-Administered Medications Medication Dose Route Frequency NaCl 0.9% iv flush bag 20 mL INTRAVENOUS PRN aluminum-magnesium hydroxide-simethicone 200-200-20 mg/5 mL 30 mL 30 mL ORAL DAILY PRN ondansetron 4 mg tab(s) (ZOFRAN) 4 mg ORAL q 6 H PRN Or ondansetron (PF) 4 mg injection (ZOFRAN) 4 mg INTRAVENOUS q 6 H PRN polyethylene glycol 3350 17 g packet 17 g ORAL DAILY PRN acetaminophen 650 mg tab(s) (TYLENOL) 650 mg ORAL q 6 H PRN melatonin 3 mg tab(s) 3 mg ORAL DAILY (8 PM) lactated ringers iv infusion 150 mL/hr INTRAVENOUS CONTINUOUS aspirin 81 mg chewable tab(s) 81 mg ORAL DAILY atorvastatin 40 mg tab(s) (LIPITOR) 40 mg ORAL DAILY gabapentin 600 mg cap(s) (NEURONTIN) 600 mg ORAL q 8 H loperamide 2 mg cap(s) (IMODIUM) 2 mg ORAL QID PRN magnesium oxide 400 mg tab(s) (MAG-OX) 400 mg ORAL DAILY OLANZapine 20 mg tab(s) (ZYPREXA) 20 mg ORAL AT BEDTIME enoxaparin 90 mg injection (LOVENOX) 90 mg SUBCUTANEOUS BID pantoprazole DR 40 mg tab(s) (PROTONIX) 40 mg ORAL BID AC (0600/1600) escitalopram oxalate 20 mg tab(s) (LEXAPRO) 20 mg ORAL DAILY DATA: WBC (k/uL) Date Value 10/20/2024 8.42 RBC (m/uL) Date Value 10/20/2024 4.20 Hemoglobin (g/dL) Date Value 10/20/2024 10.3 (L) Hematocrit (%) Date Value 10/20/2024 32.1 (L) MCV (fL) Date Value 10/20/2024 76.4 (L) MCH (pg) Date Value 10/20/2024 24.5 (L) MCHC (g/dL) Date Value 10/20/2024 32.1 RDW-CV (%) Date Value 10/20/2024 14.6 Platelet Count (k/uL) Date Value 10/20/2024 485 (H) MPV (fL) Date Value 10/20/2024 9.1 Glucose (mg/dL) Date Value 10/20/2024 118 (H) BUN (mg/dL) Date Value 10/20/2024 13 Creatinine (mg/dL) Date Value 10/20/2024 1.17 (H) Sodium (mmol/L) Date Value 10/20/2024 131 (L) Potassium (mmol/L) Date Value 10/20/2024 3.3 (L) Chloride (mmol/L) Date Value 10/20/2024 100 CO2 (mmol/L) Date Value 10/20/2024 21 Protein, Total (g/dL) Date Value 10/02/2024 7.9 Albumin (g/dL) Date Value 09/03/2024 2.2 (L) Calcium, Total (mg/dL) Date Value 10/20/2024 9.2 Alkaline Phosphatase (U/L) Date Value 09/03/2024 88 Bilirubin, Total (mg/dL) Date Value 09/03/2024 0.3 AST (U/L) Date Value 09/03/2024 14 ALT (U/L) Date Value 09/03/2024 21 SSA Antibody IgG (AI) Date Value 02/05/2022 <0.2 SSB Antibody (AI) Date Value 02/05/2022 <0.2 Rheumatoid Factor (IU/mL) Date Value 02/05/2022 <10 ASSESSMENT AND PLAN: Diarrhea 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 ED Likely secondary to GI losses Continue IV fluids via lactated Ringer's at 150 cc/hour Hyponatremia Sodium [address] [facility] ED Likely secondary to GI losses Continue IV fluids as outlined above Hypokalemia Potassium 3.[address] [facility] ED Likely secondary to GI losses Will supplement Chronic comorbidities Hx of DVT Bipolar disorder Anxiety Hx of substance abuse SIGNATURE: Willis Emmanuel DO PATIENT NAME: Daly Evans DATE: October 20, 2024 TIME: 4:15 PM [facility] 10-12-2024 Note HNO ID: [id number] Author: JAKE MORALES RN Service: Care Management Author Type: Registered Nurse Type: Care Mgt Progress Note Filed: 10/12/2024 12:02 Note Text: CARE MANAGEMENT DISCHARGE NOTE SERVICE DATE: October 12, 2024 SERVICE TIME: 11:57 AM Admission Date: 10/09/2024 LOS: 0 days Discharge Arrangement Pt to discharge to [facility] this date at 1200, father to transport pt. Services Arranged [facility]. Provider Name: Dr. Fredrick Boland Caregiver Assessment SNF staff. Transportation Arrangements This RN cancelled transportation setup as pt's father can now transport pt. Handoff Communication: Summary of care sent to PCP and GI. Additional Information: Pt to discharge to [facility] this date at 1200, father to transport pt. No precert or HENS form needed. Discharge packet completed and on chart. Shanta HUFFMAN called report and placed AVS in discharge packet. This RN sent updates via Careport. Pt, attending, RN, broker in charge, and Niki from [facility] notified of and agreeable to discharge plan. LOC SNF. Case closed. Discharge Information Row Name Admission (Current) from 10/09/2024 in MR [id number] MED/SURG [facility] Agency [facility] -- Phone# -- SIGNATURE: Jake Morales RN PATIENT NAME: Daly Evans DATE: October 12, 2024 TIME: 11:57 AM [facility] 10-12-2024 Note HNO ID: [id number] Author: SHANTA MIMS RN Service: Nursing Author Type: Registered Nurse Type: Nursing Progress Note Filed: 10/12/2024 10:30 Note Text: Report called to Raisa at [facility]. [facility] 10-11-2024 Note HNO ID: [id number] Author: JAKE MORALES RN Service: Care Management Author Type: Registered Nurse Type: Care Mgt Progress Note Filed: 10/11/2024 14:29 Note Text: CARE MANAGEMENT PROGRESS NOTE SERVICE DATE: 10/11/2024 SERVICE TIME: 2:19 PM LOS: 0 days Chart reviewed and interdisciplinary rounds attended. Pt admitted to observation for accidental methadone overdose, pt stated that she does not take that medication and was given the medication mistakenly. GI consulted for coffee ground emesis. Wound care consulted for bilateral toes and left heel wounds. PICC placed for IV access. 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 Pt stated that discharge plan is to return to [facility], SNF can accept pt back without precert. Pt denies use of DME. Pt + for PCP, Rx, and insurance. Pt needs transportation on discharge, pt aware of possible OOP costs and agreeable. Pt denies using DME. Per attending, pt will not discharge today due to restarting Lovenox and monitoring for any further episodes of hematemesis before discharging. Current discharge plan [facility]. CM will follow for and assist with transitional discharge needs. Discharge packet on chart. PACF and transportation form completed. Pt will need transportation setup for discharge. Of note, pt admitted at [facility] main 08/20/24 until 09/03/24 for the followin08/20/2024: Small bowel resection, Ileocecectomy with general surgery. 08/20/24: Bilateral below-knee popliteal cutdown, Thromboembolectomy of AT, PT and peroneal arteries. Primary repair of tibial arteriotomies. Bilateral lower extremity 4 compartment fasciotomies with vascular surgery. 08/22/2024: Second look laparotomy, loop-end jejunosotomy. 08/23/2024: BLE fasciotomy closure. SIGNATURE: Jake Morales RN PATIENT NAME: Daly Evans DATE: October 11, 2024 TIME: 2:19 PM [facility] 10-11-2024 Note HNO ID: [id number] Author: DIANDRA MARTINEZ MD Service: General Internal Medicine Author Type: Physician Type: Progress Notes Filed: 10/11/2024 13:46 Note Text: INPATIENT PROGRESS NOTE SERVICE DATE: 10/11/2024 SERVICE TIME: 1:45 PM PRIMARY SERVICE: Hospital Medicine Subjective Denies any further episodes of nausea vomiting or hematemesis Will restart Lovenox and monitor for hematemesis Current Facility-Administered Medications Medication Dose Route Frequency pantoprazole 40 mg injection (PROTONIX) 40 mg INTRAVENOUS BID AC (0600/1600) NaCl 0.9% iv flush bag 20 mL INTRAVENOUS PRN ondansetron 4 mg tab(s) (ZOFRAN) 4 mg ORAL q 6 H PRN Or ondansetron (PF) 4 mg injection (ZOFRAN) 4 mg INTRAVENOUS q 6 H PRN aluminum-magnesium hydroxide-simethicone 200-200-20 mg/5 mL 30 mL 30 mL ORAL DAILY PRN acetaminophen 650 mg tab(s) (TYLENOL) 650 mg ORAL q 6 H PRN atorvastatin 40 mg tab(s) (LIPITOR) 40 mg ORAL AT BEDTIME gabapentin 600 mg cap(s) (NEURONTIN) 600 mg ORAL q 8 H magnesium oxide 400 mg tab(s) (MAG-OX) 400 mg ORAL DAILY OLANZapine 20 mg tab(s) (ZYPREXA) 20 mg ORAL AT BEDTIME escitalopram oxalate 20 mg tab(s) (LEXAPRO) 20 mg ORAL DAILY dextrose 40 % 15 g 15 g ORAL PRN Or glucagon 1 mg injection 1 mg INTRAMUSCULAR PRN Or dextrose 10% iv bolus 12.5 g INTRAVENOUS PRN insulin lispro injection (rapid acting) (ADMElog) SUBCUTANEOUS w MEALS AND HS potassium chloride ER 40 mEq tab(s) (KLOR-CON) 40 mEq ORAL BID enoxaparin 95.2 mg injection (LOVENOX) 1 mg/kg/dose SUBCUTANEOUS q 12 HR Objective PHYSICAL EXAM: BP 107/76 Pulse 88 Temp (Src) 97.4 (Oral) Resp 18 Ht 5' 7 (1.70m) Wt 191 lb 5.8 oz (86.8kg) SpO2 94% LMP 08/29/2024 BMI 29.96 kg/(m2). O2 Therapy: Room Air General: Not in acute distress CVS: S1-S2 normal, no murmur, No JVD RS: Clear to auscultation bilaterally Abdomen: Soft, nontender, no organomegaly Musculoskeletal: No LE edema Neuro: AO x3, No focal deficits Psy: Cooperative, No anxiety/depression DATA: Recent Labs 10/11/24 1130 10/11/24 0624 10/10/24 2013 10/10/24 1803 10/10/24 1106 PCGLUCOSE 105* 159* 85 180* 145* LABORATORY TESTS: CBC: Recent Labs 10/11/24 0629 10/10/24 05 WBC 5.84 7.09 HB 9.2* 10.4* PLT 362 380 MCV 77.9* 77.8* NEUTP 59.7 56.5 ABSNEUT 3.48 4.01 LYMPHP 27.2 30.6 EODINP 1.5 1.0 CHEM: Recent Labs 10/11/24 0451 10/10/24 0527 10/09/24 1945 NA 136 130* -- K 3.0* 3.4* -- CA 9.2 9.2 -- ANION 10 9 -- CHLOR 101 99 -- CO2 25 22 -- GLUC 102* 88 -- BUN 6* 9 -- CREAT 0.76 0.76 0.99* HEPATIC: No results for input(s): ALT, AST, TBILI, ALKPHOS, ALB, TPROT, LIPASE in the last 168 hours. URINALYSIS:No results for input(s): SPGR, UBACTERIA, LEUKEST, SSA, UWBC, URBC, UHB, UPROT, UGLUC, UKET in the last 168 hours. Invalid input(s): NITR COAG: No results for input(s): APTT, INR in the last 168 hours. CARDIAC: No results for input(s): CKMB, CKMBP, TROPT, PBNP in the last 168 hours. DATA: Diagnostic tests reviewed for today's visit: Most recent labs and imaging results. Most recent EKG Urine Culture: Positive Micro-30 Days Procedure Component Value Units Date/Time BACTERIAL CULTURE, URINE [[id number]] (Abnormal) Collected: 09/21/24914 Order Status: Completed Specimen: Urine (Nonspecific) Updated: 09/22/241814 Culture, Urine 10,000 -<50,000 CFU/ml Mixed microbiota Comment: No further workup. Mixed microbiota can be due to urine contamination with skin bacteria at time of collection or presence of a long-term urinary catheter. If a new culture is needed, please consider re-education of the patient on proper midstream collection technique or straight catheterization for urine collection. Blood Culture: Positive Micro-30 Days Procedure Component Value Units Date/Time BACTERIAL CULTURE, URINE [[id number]] (Abnormal) Collected: 09/21/24914 Order Status: Completed Specimen: Urine (Nonspecific) Updated: 09/22/241814 Culture, Urine 10,000 -<50,000 CFU/ml Mixed microbiota Comment: No further workup. Mixed microbiota can be due to urine contamination with skin bacteria at time of collection or presence of a long-term urinary catheter. If a new culture is needed, please consider re-education of the patient on proper midstream collection technique or straight catheterization for urine collection. Assesment: Accidental overdose Patient presented after accidental overdose on methadone Initially diaphoretic and somnolent, received Narcan x 2 Continue to monitor although patient now appears alert and oriented x 3 Currently stable Coffee-ground emesis Reportedly had several episodes of coffee-ground emesis during ER course Hemoglobin stable at this time GI consulted no plans for EGD Clear liquid diet, advance to regular diet Start IV Protonix twice daily x 6 weeks Hypercoagulable state on Lovenox Hx acute (more content not included)... [facility] 10-10-2024 Note HNO ID: [id number] Author: DIANDRA MARTINEZ MD Service: General Internal Medicine Author Type: Physician Type: Progress Notes Filed: 10/10/2024 15:00 Note Text: INPATIENT PROGRESS NOTE SERVICE DATE: 10/10/2024 SERVICE TIME: 2:49 PM PRIMARY SERVICE: Hospital Medicine Subjective Denies any further episodes of nausea vomiting or hematemesis Started on clear liquids, will advance as able Current Facility-Administered Medications Medication Dose Route Frequency pantoprazole 40 mg injection (PROTONIX) 40 mg INTRAVENOUS BID AC (06/1599) NaCl 0.9% iv flush bag 20 mL INTRAVENOUS PRN lactated ringers iv infusion 125 mL/hr INTRAVENOUS CONTINUOUS ondansetron 4 mg tab(s) (ZOFRAN) 4 mg ORAL q 6 H PRN Or ondansetron (PF) 4 mg injection (ZOFRAN) 4 mg INTRAVENOUS q 6 H PRN aluminum-magnesium hydroxide-simethicone 200-200-20 mg/5 mL 30 mL 30 mL ORAL DAILY PRN acetaminophen 650 mg tab(s) (TYLENOL) 650 mg ORAL q 6 H PRN atorvastatin 40 mg tab(s) (LIPITOR) 40 mg ORAL AT BEDTIME gabapentin 600 mg cap(s) (NEURONTIN) 600 mg ORAL q 8 H magnesium oxide 400 mg tab(s) (MAG-OX) 400 mg ORAL DAILY OLANZapine 20 mg tab(s) (ZYPREXA) 20 mg ORAL AT BEDTIME escitalopram oxalate 20 mg tab(s) (LEXAPRO) 20 mg ORAL DAILY dextrose 40 % 15 g 15 g ORAL PRN Or glucagon 1 mg injection 1 mg INTRAMUSCULAR PRN Or dextrose 10% iv bolus 12.5 g INTRAVENOUS PRN insulin lispro injection (rapid acting) (ADMElog) SUBCUTANEOUS q 6 H Objective PHYSICAL EXAM: BP 113/71 Pulse 85 Temp (Src) 97.5 (Axillary) Resp 25 Ht 5' 7 (1.70m) Wt 191 lb 5.8 oz (86.8kg) SpO2 82% LMP 08/29/2024 BMI 29.96 kg/(m2). O2 Therapy: Room Air General: Not in acute distress CVS: S1-S2 normal, no murmur, No JVD RS: Clear to auscultation bilaterally Abdomen: Soft, nontender, no organomegaly Musculoskeletal: No LE edema Neuro: AO x3, No focal deficits Psy: Cooperative, No anxiety/depression DATA: Recent Labs 10/10/24 1106 10/10/24 0518 10/09/24 2233 10/09/24 1937 10/09/24 1754 PCGLUCOSE 145* 103* 154* 158* 136* LABORATORY TESTS: CBC: Recent Labs 10/10/24526 WBC 7.09 HB 10.4* PLT 380 MCV 77.8* NEUTP 56.5 ABSNEUT 4.01 LYMPHP 30.6 EODINP 1.0 CHEM: Recent Labs 10/10/2452610/09/241944 NA 130* -- K 3.4* -- CA 9.2 -- ANION 9 -- CHLOR 99 -- CO2 22 -- GLUC 88 -- BUN 9 -- CREAT 0.76 0.99* HEPATIC: No results for input(s): ALT, AST, TBILI, ALKPHOS, ALB, TPROT, LIPASE in the last 168 hours. URINALYSIS:No results for input(s): SPGR, UBACTERIA, LEUKEST, SSA, UWBC, URBC, UHB, UPROT, UGLUC, UKET in the last 168 hours. Invalid input(s): NITR COAG: No results for input(s): APTT, INR in the last 168 hours. CARDIAC: No results for input(s): CKMB, CKMBP, TROPT, PBNP in the last 168 hours. DATA: Diagnostic tests reviewed for today's visit: Most recent labs and imaging results. Most recent EKG Urine Culture: Positive Micro-30 Days Procedure Component Value Units Date/Time BACTERIAL CULTURE, URINE [[id number]] (Abnormal) Collected: 09/21/24914 Order Status: Completed Specimen: Urine (Nonspecific) Updated: 09/22/24 1815 Culture, Urine 10,000 -<50,000 CFU/ml Mixed microbiota Comment: No further workup. Mixed microbiota can be due to urine contamination with skin bacteria at time of collection or presence of a long-term urinary catheter. If a new culture is needed, please consider re-education of the patient on proper midstream collection technique or straight catheterization for urine collection. Blood Culture: Positive Micro-30 Days Procedure Component Value Units Date/Time BACTERIAL CULTURE, URINE [[id number]] (Abnormal) Collected: 09/21/2415 Order Status: Completed Specimen: Urine (Nonspecific) Updated: 09/22/241814 Culture, Urine 10,000 -<50,000 CFU/ml Mixed microbiota Comment: No further workup. Mixed microbiota can be due to urine contamination with skin bacteria at time of collection or presence of a long-term urinary catheter. If a new culture is needed, please consider re-education of the patient on proper midstream collection technique or straight catheterization for urine collection. Assesment: Accidental overdose Patient presented after accidental overdose on methadone Initially diaphoretic and somnolent, received Narcan x 2 Continue to monitor although patient now appears alert and oriented x 3 Coffee-ground emesis Reportedly had several episodes of coffee-ground emesis during ER course Hemoglobin stable at this time GI consulted no plans for EGD Clear liquid diet Start IV Protonix twice daily Hypercoagulable state on Lovenox Hx acute mesenteric ischemia + acute limb ischemia 2/2 JONATAN-resolved Hypokalemia Hypomagnesemia Creatinine 1.72 on admission Start maintenance IV fluid Follow-up with a.m. labs Diabetes Insulin regimen ordered Hypoglycemia protocol (more content not included)... [facility] 10-10-2024 Note HNO ID: [id number] Author: JAKE MORALES RN Service: Care Management Author Type: Registered Nurse Type: Care Mgt Initial Assessment Filed: 10/10/2024 14:33 Note Text: CARE MANAGEMENT: ASSESSMENT AND DISCHARGE PLAN SERVICE DATE: October 10, 2024 SERVICE TIME: 2:17 PM PCP: Fredrick Boland DO Primary Contact: Extended Emergency Contact Information Primary Emergency Contact: Ernst Evans Mobile Relation: Father Secondary Emergency Contact: Mary Evans [facility] Relation: Mother Admission Status: Observation Insurance Provider: CARLA MUÑOZ MEDICAID Discharge Planning requested by: Per Department Practice Potential Transition Plans To Be Determined Advance Directives Current Advance Directive: None Current Living Arrangements and Support Lives with: (At [facility].) Type of Residence: [facility] Does the patient have to climb stairs at home?: No Care Facility Name: [facility]. Support: Parent, Family members How do you manage to accomplish the following: Independent: Ambulation, Bathe/Shower, Dress, Going to the bathroom Dependent: Meals/Meal Prep, Medication Management, Transportation to appointments/community Current Services/Equipment Current Post-Acute Service(s): None Discharge Planning Patient Goal(s): General wellness [place] of Choice Explained: Are you interested in bedside delivery of your medications? 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 Pt stated that discharge plan is to return to SNF, this RN requested that [facility] send return referral. Pt denies use of DME. Pt + for PCP, Rx, and insurance. Pt will need transportation setup on discharge, pt aware of possible OOP costs and agreeable. CM will follow for and assist with transitional discharge needs. Pt admitted to observation for accidental methadone overdose, pt stated that she does not take that medication and was given the medication mistakenly. GI consulted for coffee ground emesis. Pt has JONATAN, renal US ordered. Wound care consulted for bilateral toes and left heel wounds. PICC placed today for IV access. Pt will need accepting SNF for discharge. Pt will need all Careport and discharge paperwork completed and transportation setup. Of note, pt admitted at [facility] main 08/20/24 until 09/03/24 for the followin08/20/2024: Small bowel resection, Ileocecectomy with general surgery. 08/20/24: Bilateral below-knee popliteal cutdown, Thromboembolectomy of AT, PT and peroneal arteries. Primary repair of tibial arteriotomies. Bilateral lower extremity 4 compartment fasciotomies with vascular surgery. 08/22/2024: Second look laparotomy, loop-end jejunosotomy. 08/23/2024: BLE fasciotomy closure. Intimate Partner Violence We have begun to talk to patients about safe and healthy relationships because it can have a large impact on your health. Do you feel safe around your partner or ex-partner?: Yes Food Insecurity Within the past 12 months, you worried that your food would run out before you got the money to buy more.: Never true Within the past 12 months, the food you bought just didn't last and you didn't have money to get more.: Never true Transportation Needs In the past 12 months, has lack of transportation kept you from medical appointments or from getting medications?: No In the past 12 months, has lack of transportation kept you from meetings, work, or from getting things needed for daily living?: No Housing Stability In the last 12 months, was there a time when you were not able to pay the mortgage or rent on time?: No At any time in the past 12 months, were you homeless or living in a skilled nursing (including now)?: No Utilities In the past 12 months has the [employer] gas, oil, or water [employer] threatened to shut off services in your home?: No Social Information Financial Resources: Unemployed SIGNATURE: Jake Morales RN PATIENT NAME: Daly Evans DATE: October 10, 2024 TIME: 2:17 PM [facility] 10-10-2024 Note HNO ID: [id number] Author: CHARLEE ROGERS RN Service: PICC Team Author Type: Registered Nurse Type: Procedures Filed: 10/10/2024 08:37 Note Text: MIDLINE INSERTION PROCEDURE NOTE - PICC TEAM NURSES DATE OF PROCEDURE: 10/10/2024 TIME OF PROCEDURE: 0800 ORDERING PHYSICIAN: Alycia aRwls CNP Indications for line placement: Intravenous access Condition of line placement: Sterile Primary Proceduralist: Shawn Vasquez RN Sports Cartoonist: Charlee Rogers RN Pre-procedure Review: ALLERGIES Allergen Reactions Hydrocodone-Acetami* GI Upset hyperactivity Known history of Upper Venous Thrombosis: No Known history of Permanent Pacemaker or Automated Implanted Cardiac Device: No Previous breast surgery of lymph node dissection: No Estimated Glomerular Filtration Rate Date Value Ref Range Status 10/10/2024 101 >=60 mL/min/1.73m? Final Comment: Estimated Glomerular Filtration Rate (eGFR) is calculated using the 2020 CKD-EPI creatinine equation. This equation utilizes serum creatinine, sex, and age as parameters. The creatinine assay has traceable calibration to isotope dilution-mass spectrometry. Refer to KDIGO guidelines for clinical interpretation. In patients with unstable renal function, e.g. those with acute kidney injury, the eGFR may not accurately reflect actual GFR. eGFR- Date Value Ref Range Status 07/28/2021 >60 Final History of Renal Disease: No Ultrasound assessment complete: Yes Procedure Narrative Safe Practice: Hand hygiene per hospital policy: Yes Skin preparation used: Chloraprep (CHG + alcohol), allowed to dry Barriers used by Proceduralist and all assisting personnel: Yes UNIVERSAL PROTOCOL / SAFETY CHECKLIST Procedure to be Performed: Midline insertion Sign In: A Moment of CARE was completed. Appropriate PPE (Personal Protective Equipment) worn by all providers involved with the procedure. Special equipment utilized Site [facility]. Patient/Surrogate Stated/Verified: Patient name, Date of , Relevant allergies, and The intended procedure Time Out: Relevant labs, photos, and/or imaging studies have been reviewed. Intended patient and procedure match the source document(s) (e.g. consent, HANDP, associated studies [imaging, pathology]) match the intended patient and procedure. Consent obtained and matches the intended procedure.N/A Correct side/site is not applicable. Medications required for this procedure are verified. Fire risk assessed and is not applicable. Implants: are not applicable. Sign Out: Specimens not collected. All instruments, equipment, possible retained foreign bodies are accounted for. N/A The post-procedure plan of care has been communicated to patient's multidisciplinary team (including bedside nurse for hospitalized patients). Midline Catheter Placement: Brand: [employer] Lot: [id number] Number of lumens: 1 Type of Midline: Power Injectable Midline Lumen size: 3 Slovak Placement Technique: Lidocaine: Yes, Lidocaine 1% Volume 2 mL Subcutaneous Modified Seldinger Technique use to place line via the: Left Basilic Ultrasound Guidance: Yes Number of attempts at insertion: 1 Ensured control of guidewire during all aspects of the procedure: Yes Accounted for entire guidewire upon removal: Yes Internal length: 13 cm External length: 0 cm Trim length:13 cm Mid-Arm circumference: 30 centimeters Post insertion pain level related to procedure: 0 Action taken to address pain: None needed Verified placement: Positive blood return Line was flushed with 10 mL normal saline Line secured with: Securement device Sterile dressing applied and dated: Yes Sterile caps on all ports prior to leaving procedure area: Yes, Disinfection caps applied Specimens: None Complications: None Patient education materials: Placed in chart Questions or problems: Call Vascular Access Nurse on [facility] SIGNATURE: Charlee Rogers RN PATIENT NAME: Daly Evans DATE: October 10, 2024 TIME: 8:34 AM PAGER: Call [facility] 10-10-2024 Telephone encounter Note Scheduled. Message left for patient to confirm. Hospital will print at discharge. [facility] Work Phone: 10-10-2024 Miscellaneous Notes Scheduled. Message left for patient to confirm. Hospital will print at discharge. I see she is currently admitted to the hospital for accidental overdose. Please schedule her for follow-up with me after discharge to discuss recent lab work she had done at her initial consultation here. Martín Ballesteros DO documented in this encounter [facility] 10-09-2024 Note HNO ID: [id number] Author: LETTY ARAUZ RDMS Service: Radiology Author Type: Technologist Type: Progress Notes Filed: 10/09/2024 19:05 Note Text: Radiology Service Progress Note PATIENT NAME: Daly Evans DATE OF SERVICE: October 09, 2024 TIME: 7:05 PM PATIENT IDENTITY VERIFICATION COMPLETED USING TWO (2) IDENTIFIERS: Name and Date of confirmed by patient verbally and Name and Date of confirmed by identification band. FALL SCREENING: Has the patient had 2 falls in the last year or 1 fall with injury or currently using an Ambulatory Assistive Device (Walker, Cane, Wheelchair, Crutches, etc.)? Inpatient: Screened on floor PATIENT GENDER DATA: Assigned female at . status: Unknown status: N/A PATIENT RELEVANT IMPLANT DATA REVIEWED: Not Applicable PATIENT PRESENTS WITH AN IMPLANTABLE OR ATTACHED INTERNATIONAL PROJECT MANAGER: No RADIOLOGY DEPARTMENT: Ultrasound PERIPHERAL IV DATA: Not applicable SIGNED BY: Letty Arauz RDMS October 09, 2024 7:05 PM [facility] 10-09-2024 Telephone encounter Note I see she is currently admitted to the hospital for accidental overdose. Please schedule her for follow-up with me after discharge to discuss recent lab work she had done at her initial consultation here. Martín Ballesteros DO [facility] Work Phone: 10-08-2024 Telephone encounter Note We were able to complete the virtual education visit as scheduled. [facility] 10-08-2024 Miscellaneous Notes We were able to complete the virtual education visit as scheduled. I returned her father's call and got voicemail at the number he asked me to call and left a message. I then tried to call his cell and got voicemail as well and left another message. Patient father called in stated he would like a call back this morning concerning the phone visit scheduled at 10am this morning his call back number is [phone] documented in this encounter [facility] 10-08-2024 Telephone encounter Note I returned her father's call and got voicemail at the number he asked me to call and left a message. I then tried to call his cell and got voicemail as well and left another message. [facility] 10-08-2024 Telephone encounter Note Patient father called in stated he would like a call back this morning concerning the phone visit scheduled at 10am this morning his call back number is [phone] [facility] 10-08-2024 Telephone encounter Note Images from the original note were not included. [facility] REFERRAL: Referring Physician: Dr. Peter Smith ([facility]) Reason for Referral: Surgical rehabilitation Referring Diagnosis: SMA occlusion, disconnected SBS, on TPN HISTORY: Daly Estrella Lover is a 39 year old single female from [place], [place] ([address], supportive father) with a history of bipolar disorder, severe panic attacks, polysubstance abuse (EtOH, marijuana - sober since at least Apr 2024), violent behavior under influence of EtOH (September 2021), smoking (quit Jul 2024), (2012), preDM, and lap maryellen (2018). 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 The patient emergently underwent bowel resection from mid jejunum through cecum upon consultation with the intestinal transplant service (08/20/24). She had further minor SBR and formation of an end loop jejunostomy (08/22/24) and was started on TPN. The patient also underwent bilateral LE tibial thromboembolectomy and 4 compartment fasciotomies (08/20/24) with bilateral LE fasciotomy closure by vascular surgery (08/23/24). She was DC to SNF 09/03/24 and referred to [facility] for STEP + Gattex. Anatomy: Intact stomach and duodenum, 50cm jejunum to LLQ loop end jejunostomy, no ICV, long Sarai's pouch from ascending colon through rectum. Current GI Symptoms: Poor oral intake due to ongoing nausea, abdominal pain. 500-1000mL stoma output daily. Vascular assessment (09/19/24): Bilateral foot wounds, continued mottling/duskiness of bilateral toes; areas of necrosis noted right 2nd toe and left toes 1-4. Testing: CT A/P (09/02/24): Subtotal small bowel resection with LLQ end loop jejunostomy. Unremarkable colon. No organized abdominal pelvic collections. CT C/A/P (08/29/24): No traumatic injury in the chest. Mild decrease in size of mural thrombus in the mid descending thoracic aorta. Subtotal enterectomy with left lower quadrant end loop jejunostomy. The entire colon remains as a stump. SMA remains occluded approximately 5-6 cm distal to the origin. Echo (08/22/24): Left ventricular systolic function is hyperdynamic. EF = 75 5% (visual est.). Agitated saline study negative for intracardiac shunting. CTA A/P (08/20/24): Eccentric mural thrombus distal descending thoracic aorta, likely the source of distal emboli. Embolic occlusion SMA approximately 5 to 6 cm from its origin without reconstitution. DESTINY is providing some collateral. Embolic occlusion of the left internal iliac artery. Embolic occlusions of bilateral tibial arteries in the mid to distal portions. There is reconstitution bilateral distal peroneal arteries providing some collateral supply to the foot, better on the left side. Nutrition: TPN: yes Duration of TPN: since 08/22/24 stopped approx 10/01/24 at [facility]. Tube Feeds: no Height: 172 cm (5' 7.72) Weight: 91.5 kg (201 lb 11.5 oz) on 09/03/24 - BMI 30.9 [facility] Attending Physician manages her TPN. Dr. Devine reviewed patient's history and testing. The patient and her parents were on the virtual education call. Patient's last surgery was July 2024 and she needs a few months to heal before he can consider surgery. Patient needs the following testing: UGI SBFT GGE Follow-up with Dr. Montoya for TPN management Upper and lower scopes CT chest w IV con Upcoming appointments: 10/17/24 Dr. Smith, 10/22/24 Vascular Medicine Pt accepted in person appointment with Dr. Devine on Tuesday10/22/24, with labs in A30 at noon. [facility] 10-08-2024 Miscellaneous Notes Images from the original note were not included. [facility] REFERRAL: Referring Physician: Dr. Peter Smith ([facility]) Reason for Referral: Surgical rehabilitation Referring Diagnosis: SMA occlusion, disconnected SBS, on TPN HISTORY: Daly Estrella Lover is a 39 year old single female from [place], [place] ([address], supportive father) with a history of bipolar disorder, severe panic attacks, polysubstance abuse (EtOH, marijuana - sober since at least Apr 2024), violent behavior under influence of EtOH (September 2021), smoking (quit Jul 2024), (2012), preDM, and lap maryellen (2018). 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 The patient emergently underwent bowel resection from mid jejunum through cecum upon consultation with the intestinal transplant service (08/20/24). She had further minor SBR and formation of an end loop jejunostomy (08/22/24) and was started on TPN. The patient also underwent bilateral LE tibial thromboembolectomy and 4 compartment fasciotomies (08/20/24) with bilateral LE fasciotomy closure by vascular surgery (08/23/24). She was DC to SNF 09/03/24 and referred to [facility] for STEP + Gattex. Anatomy: Intact stomach and duodenum, 50cm jejunum to LLQ loop end jejunostomy, no ICV, long Sarai's pouch from ascending colon through rectum. Current GI Symptoms: Poor oral intake due to ongoing nausea, abdominal pain. 500-1000mL stoma output daily. Vascular assessment (09/19/24): Bilateral foot wounds, continued mottling/duskiness of bilateral toes; areas of necrosis noted right 2nd toe and left toes 1-4. Testing: CT A/P (09/02/24): Subtotal small bowel resection with LLQ end loop jejunostomy. Unremarkable colon. No organized abdominal pelvic collections. CT C/A/P (08/29/24): No traumatic injury in the chest. Mild decrease in size of mural thrombus in the mid descending thoracic aorta. Subtotal enterectomy with left lower quadrant end loop jejunostomy. The entire colon remains as a stump. SMA remains occluded approximately 5-6 cm distal to the origin. Echo (08/22/24): Left ventricular systolic function is hyperdynamic. EF = 75 5% (visual est.). Agitated saline study negative for intracardiac shunting. CTA A/P (08/20/24): Eccentric mural thrombus distal descending thoracic aorta, likely the source of distal emboli. Embolic occlusion SMA approximately 5 to 6 cm from its origin without reconstitution. DESTINY is providing some collateral. Embolic occlusion of the left internal iliac artery. Embolic occlusions of bilateral tibial arteries in the mid to distal portions. There is reconstitution bilateral distal peroneal arteries providing some collateral supply to the foot, better on the left side. Nutrition: TPN: yes Duration of TPN: since 08/22/24 stopped approx 10/01/24 at [facility]. Tube Feeds: no Height: 172 cm (5' 7.72) Weight: 91.5 kg (201 lb 11.5 oz) on 09/03/24 - BMI 30.9 [facility] Attending Phys[facility] manages her TPN. Dr. Devine reviewed patient's history and testing. The patient and her parents were on the virtual education call. Patient's last surgery was July 2024 and she needs a few months to heal before he can consider surgery. Patient needs the following testing: UGI SBFT GGE Follow-up with Dr. Montoya for TPN management Upper and lower scopes CT chest w IV con Upcoming appointments: 10/17/24 Dr. Smith, 10/22/24 Vascular Medicine Pt accepted in person appointment with Dr. Devine on Tuesday10/22/24, with labs in A30 at noon. documented in this encounter [facility] 10-03-2024 Telephone encounter Note Faxed. Irma Avila RN [facility] 10-03-2024 Miscellaneous Notes Faxed. Irma Avila RN [facility] called requesting office visit notes from yesterday be faxed to them at [phone] documented in this encounter [facility] 10-03-2024 Telephone encounter Note [facility] called requesting office visit notes from yesterday be faxed to them at [phone] [facility] Work Phone: 10-02-2024 History of Present illness Narrative Patient referred by Dr. 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 HPI: The patient is a 39-year-old female with past medical history as outlined below. Presented to the ED at [facility]. 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 Sent to [facility]. Surgical notes reviewed. Heterozygous factor V Leiden. Positive for lupus anticoagulant. JAK2 mutation negative PNH negative. Protein electrophoresis revealed a monoclonal spike quantitated at 0.21 g/dL. No monoclonal protein identified by immunofixation. Both kappa and lambda light chains elevated with an increased ratio of kappa to lambda. Immunoglobulins normal. Beta-2 microglobulin 3.0. Feeling better. At [facility]. On TPN 12 hours via left arm PICC. Has somewhat of an appetite. Has been eating small amounts. Walking. Still has gilberto in abdominal incision. Tolerating Lovenox injections well. No unusual bleeding or unexplained bruising. PAST MEDICAL HISTORY Diagnosis Date Attempted suicide (HCC) polysubstance Bipolar depression (HCC) [facility] Gestational diabetes mellitus in (HCC) Impaired fasting blood sugar 06/2015 a1c 5.7% at diagnosis Iron deficiency anemia Vitamin D deficiency PAST SURGICAL HISTORY Procedure Laterality Date CARPAL TUNNEL bilateral DELIVERY ONLY 2/9/13 LAPAROSCOPY SURG CHOLECYSTECTOMY 07/01/2018 Cholecystectomy, lap acetaminophen (TYLENOL) 325 mg tablet Take 2 tablets by mouth every 6 hours. aspirin 81 mg chewable tablet Take 1 tablet by mouth once daily. atorvastatin (LIPITOR) 40 mg tablet Take 1 tablet by mouth daily at bedtime. dextrose (TRUEPLUS) 15 gram/32 mL oral gel Take 32 mL by mouth as needed (blood glucose is less than 70 mg/dL). enoxaparin (LOVENOX) 100 mg/mL syrg Inject 0.95 mL subcutaneously every 12 hours. gabapentin (NEURONTIN) 600 mg tablet Take 1 tablet by mouth every 8 hours for 90 days. insulin lispro 100 unit/mL injection Inject 0-10 Units subcutaneously with meals and at bedtime. insulin lispro 100 unit/mL injection Inject 0-10 Units subcutaneously once daily. Daily @ 3AM labetalol (NORMODYNE) 20 mg/4 mL (5 mg/mL) syrg Inject 2 mL intravenously every 4 hours as needed (SBP >160). loperamide (IMODIUM) 2 mg cap(s) Take 1 capsule by mouth before meals and at bedtime. naloxone (NARCAN) 0.4 mg/mL soln Inject 0.25 mL intramuscularly as needed for known or suspected opioid overdose. escitalopram oxalate (LEXAPRO) 20 mg tablet Take 2 tablets by mouth once daily. OLANZapine (ZYPREXA) 20 mg tablet Take 1 tablet by mouth daily at bedtime. (Patient not taking: Reported on 09/19/2024) omeprazole (PRILOSEC) 40 mg capsule Take 1 capsule by mouth once daily. ALLERGIES Allergen Reactions Hydrocodone-Acetami* GI Upset hyperactivity Social History Tobacco Use Smoking status: Former Current packs/day: 0.00 Types: Cigarettes Quit date: 04/13/2015 Years since quittin.4 Smokeless tobacco: Never Tobacco comments: Pateint only uses the Vape She doesnt smoke nicotine Patient quit smoking 08/20/2024 Vaping Use Vaping status: Former Quit date: 09/17/2024 Substance Use Topics Alcohol use: Not Currently Comment: occassional Drug use: No REVIEW OF SYSTEMS: Constitutional: No episodes of fever and night sweats. Neuro: No TAVAREZ, vertigo, dizziness and imbalance. HEENT: No recent change in voice, vision or hearing. Resp: No cough, wheeze and hemoptysis. No shortness of breath at rest. CVS: No exertional chest pain, PND, orthopnea. GI: No reflux or nausea. : No dysuria or gross hematuria. Endo: No hot flashes. Musculoskeletal: No bone, back, joint and muscular pain. Derm: No current rash. Heme: See above. Psych: Normal mood. PHYSICAL EXAM: Vitals: Blood pressure 101/72, pulse 114, temperature 36.6 C (97.8 F), temperature source Temporal, height 169.5 cm (5' 6.73), weight 92.5 kg (204 lb), last menstrual period 08/29/2024, SpO2 99%. Pale-appearing and in no acute distress. EYES: Sclerae are anicteric bilaterally. LYMPHATIC: There is no palpable cervical or supraclavicular adenopathy. CARDIOVASCULAR: Rhythm is regular. ABDOMEN: The abdomen is nondistended. Midline incision healing well. Gilberto in place. Left lower ostomy. Extremities: PICC left arm. SKIN: No jaundice. Multiple tattoos. Well-healing incisions on the legs. ASSESSMENT/PLAN: (R77.8) Abnormal serum protein electrophoresis (primary encounter diagnosis) Assessment: - Patient was found to have a small monoclonal protein on electrophoresis when in the hospital. Immunofixation of the serum negative. Light chains both elevated with mild increased ratio of kappa over lambda. - Most likely this may be a transient increase in light chains secondary to massive inflammation due to ischemic bowel and extensive thrombosis at time of diagnosis. Plan: - Recheck serum electrophoresis and immunofixation. If abnormal then 24-hour urine collection for same analysis. (D68.61) Antiphospholipid antibody syndrome (HCC) Assessment: - She was found to have heterozygous factor V Leiden by PCR testing. - Lupus anticoagulant positive. Antibeta-2 glycoprotein antibodies negative but I cannot find record of anticardiolipin antibodies. - Protein C and S likely decreased during acute clot process. - Discussed with patient that she will have to remain on indefinite anticoagulation. Best to rotate to Coumadin once she is more clinically stable, i.e. eating, back home and no longer requiring TPN. Plan: - She has follow-up scheduled with vascular medicine at [facility]. - Recheck protein C&S today. - Her weight is 90 kg. Check low molecular weight heparin assay. - Check anticardiolipin and antibeta 2 glycoprotein antibodies today. -Plan on rotating to Coumadin once more stable as outlined above. I spent a total of 60 minutes on the date of the service which included preparing to see the patient, [id number] patient care, completing clinical documentation, obtaining and/or reviewing separately obtained history, performing a medically appropriate examination, counseling and educating the patient/family/caregiver, ordering medications, tests, or procedures, communicating with other HCPs (not separately reported), and communicating results to the patient/family/caregiver. Martín Ballesteros DO documented in this encounter [facility] 09-27-2024 Note . MICRO - Microbiology PROCEDURE: Blood Culture (bacterial) [*1] SOURCE: Blood BODY SITE: COLLECTED DATE/TIME: 09/21/2024 16:15 EDT RECEIVED DATE/TIME: 09/22/2024 17:06 EDT START DATE/TIME: 09/22/2024 17:11 EDT FREE TEXT SOURCE: FINAL REPORTS Final Report [] Verified Date/Time/Personnel: 09/27/2024 17:59 EDT Blood Culture: No Growth at 5 days. PRELIMINARY REPORTS Preliminary Report [] Verified Date/Time/Personnel: 09/22/2024 17:59 EDT Culture has been received in lab and is no growth to date. Routine cultures are held for 5 days. Performing Locations *1: This test was performed at: [facility], [address] [place] [address], [facility] , [facility] 09-27-2024 Note . MICRO - Microbiology PROCEDURE: Catheter Tip Culture [*1] SOURCE: Catheter Tip BODY SITE: COLLECTED DATE/TIME: 09/23/2024 15:00 EDT RECEIVED DATE/TIME: 09/24/2024 14:17 EDT START DATE/TIME: 09/24/2024 14:17 EDT FREE TEXT SOURCE: picc FINAL REPORTS Final Report [] Verified Date/Time/Personnel: 09/27/2024 10:23 EDT Heavy Staphylococcus aureus PRELIMINARY REPORTS Preliminary Report [] Verified Date/Time/Personnel: 09/26/2024 09:43 EDT Heavy Staphylococcus aureus AUDRA to follow Preliminary Report [] Verified Date/Time/Personnel: 09/25/2024 10:05 EDT Culture results pending. SUSCEPTIBILITY RESULTS Staphylococcus aureus Antibiotic AUDRA Dilut AUDRA Inter Ampicillin >8 Beta Lactamase Positive Ampicillin/ <=8/4 Susceptible Sulbactam Azithromycin <=2 Susceptible Ceftriaxone <=4 Susceptible Ciprofloxacin <=1 Susceptible Clindamycin <=0.25 Susceptible Erythromycin <=0.25 Susceptible ID Panel Not Not Applicable Applicable Levofloxacin <=1 Susceptible Oxacillin <=0.25 Susceptible Penicillin >2 Beta Lactamase Positive Tetracycline <=4 Susceptible Trimethoprim/ <=0.5/9.5 Susceptible Sulfa Vancomycin 0.5 Susceptible Performing Locations *1: This test was performed at: [facility], [address] [place] [address], [facility] , [facility] 09-27-2024 Note . MICRO - Microbiology PROCEDURE: Blood Culture (bacterial) [*1] SOURCE: Blood BODY SITE: COLLECTED DATE/TIME: 09/21/2024 15:59 EDT RECEIVED DATE/TIME: 09/22/2024 17:05 EDT START DATE/TIME: 09/22/2024 17:11 EDT FREE TEXT SOURCE: AMENDED REPORTS Amended Report [] Verified Date/Time/Personnel: 09/27/2024 09:49 EDT Staphylococcus epidermidis Isolated from aerobe and anaerobe bottles. Amended Report [] Verified Date/Time/Personnel: 09/26/2024 09:58 EDT Staphylococcus epidermidis Isolated from aerobe and anaerobe bottles. AUDRA to follow FINAL REPORTS Final Report [] Verified Date/Time/Personnel: 09/24/2024 09:15 EDT Staphylococcus coagulase negative Isolated from aerobe and anaerobe bottles. 1 out of 2 sets positive Organism is a potential contaminant. Clinical Significance undetermined. Please contact Microbiology if further work-up is required. PRELIMINARY REPORTS Preliminary Report [] Verified Date/Time/Personnel: 09/22/2024 17:59 EDT Culture has been received in lab and is no growth to date. Routine cultures are held for 5 days. STAINS GSANA [] Verified Date/Time/Personnel: 09/23/2024 11:36 EDT Gram Positive Cocci in clusters GSAER [] Verified Date/Time/Personnel: 09/23/2024 07:18 EDT Gram Positive Cocci in clusters SUSCEPTIBILITY RESULTS Staphylococcus epidermidis Antibiotic AUDRA Dilut AUDRA Inter Ampicillin/ <=8/4 Resistant Sulbactam Azithromycin >4 Resistant Cefepime >16 Resistant Ceftriaxone >32 Resistant Ciprofloxacin >2 Resistant Clindamycin >4 Resistant Erythromycin >4 Resistant ID Panel Not Not Applicable Applicable Imipenem <=4 Resistant Levofloxacin >4 Resistant Meropenem >8 Resistant Oxacillin >2 Resistant Penicillin >2 Resistant Rifampin <=1 Susceptible Tetracycline <=4 Susceptible Trimethoprim/ >2/38 Resistant Sulfa MICRO - Microbiology SUSCEPTIBILITY RESULTS Staphylococcus epidermidis Antibiotic AUDRA Dilut AUDRA Inter Vancomycin 1 Susceptible Performing Locations *1: This test was performed at: [address], [facility] , [facility] 09-22-2024 Note . MICRO - Microbiology PROCEDURE: Blood Culture (bacterial) [*1] SOURCE: Blood BODY SITE: COLLECTED DATE/TIME: 09/17/2024 05:20 EDT RECEIVED DATE/TIME: 09/17/2024 13:45 EDT START DATE/TIME: 09/17/2024 13:45 EDT FREE TEXT SOURCE: rt ac FINAL REPORTS Final Report [] Verified Date/Time/Personnel: 09/22/2024 13:59 EDT Blood Culture: No Growth at 5 days. PRELIMINARY REPORTS Preliminary Report [] Verified Date/Time/Personnel: 09/17/2024 15:00 EDT Culture has been received in lab and is no growth to date. Routine cultures are held for 5 days. Performing Locations *1: This test was performed at: [address], [facility] , [facility] 09-20-2024 Note . MICRO - Microbiology PROCEDURE: Blood Culture (bacterial) [*1] SOURCE: Blood BODY SITE: COLLECTED DATE/TIME: 09/17/2024 04:40 EDT RECEIVED DATE/TIME: 09/17/2024 13:45 EDT START DATE/TIME: 09/17/2024 13:45 EDT FREE TEXT SOURCE: rt upper arm FINAL REPORTS Final Report [] Verified Date/Time/Personnel: 09/20/2024 09:30 EDT Staphylococcus coagulase negative Isolated from aerobe and anaerobe bottles. Staphylococcus coagulase negative #2 Isolated from aerobe bottle only. Organism is a potential contaminant. Clinical Significance undetermined. Please contact Microbiology if further work-up is required. 1 out of 2 sets positive PRELIMINARY REPORTS Preliminary Report [] Verified Date/Time/Personnel: 09/19/2024 09:51 EDT Staphylococcus coagulase negative Isolated from anaerobe bottle only. Organism is a potential contaminant. Clinical Significance undetermined. Please contact Microbiology if further work-up is required. 1 out of 2 sets positive Preliminary Report [] Verified Date/Time/Personnel: 09/17/2024 15:00 EDT Culture has been received in lab and is no growth to date. Routine cultures are held for 5 days. STAINS GSANA [] Verified Date/Time/Personnel: 09/18/2024 08:53 EDT Gram Positive Cocci in clusters GSAER [] Verified Date/Time/Personnel: 09/18/2024 01:36 EDT Gram Positive Cocci in clusters Performing Locations *1: This test was performed at: [facility], [address] [place] [address], [id number] , [facility] 09-19-2024 History of Present illness Narrative Images from the original note were not included. [facility] [place] DEPARTMENT OF VASCULAR SURGERY OUTPATIENT VISIT DATE September 19, 2024 OUTPATIENT VISIT TYPE ESTABLISHED SERVICE DATE: 09/19/2024 SERVICE TIME: 1330 PRIMARY CARE PHYSICIAN: Fredrick Boland DO HISTORY OF PRESENT ILLNESS: Ms. Evans is a 39 year old female followed by vascular surgery for: - acute mesenteric ischemia due to distal SMA thromboembolism and bilateral lower extremity acute limb ischemia Pt is s/p: 08/20/2024 w/ Dr Goncalves Bilateral exploratory laparotomy with resection of small bowel and colon -see general surgery operative note for details; Placement of ABThera wound VAC device-see general surgery operative note for details; Bilateral below-knee popliteal artery cutdown; Thromboembolectomy of anterior tibial artery, posterior tibial artery, and peroneal arteries bilaterally with #3 Romana balloon; Primary repair of popliteal and tibial arteriotomies; Bilateral lower extremity 4 compartment fasciotomies 08/20/2024 w/General Surgery - Dr Smith Small bowel resection and Iliocecectomy 08/23/2024 w/General Surgery - Dr Smith 1. Reopening of recent laparotomy. 2. Small bowel resection 3. End-loop jejunostomy. 4. Closure of open abdomen. 08/23/2024 w/ Dr Palomares Bilateral lower extremity lateral fasciotomy closures Pt discharged to SNF 09/03/2024. Reason for presentation today: Hospital follow up Today: - Denies recent fever/chills/purulent drainage - Pt reports ongoing nausea and abdominal pain. She has been taking zofran prn. She is on TPN and reports poor oral intake due to nausea - Denies claudication/rest pain. She reports some numbness/tingling along fasciotomy sites - Pt's SNF wound care team has been managing bilateral foot wounds Vascular health status: Smoking status (including 2nd hand exposure): former smoker Anti-platelet/anticoagulation (& indication): aspirin/lovenox Statin or PCSK9i - lipitor PAST MEDICAL HISTORY Diagnosis Date Attempted suicide (HCC) polysubstance Bipolar depression (HCC) [facility] Gestational diabetes mellitus in Impaired fasting blood sugar 06/2015 a1c 5.7% at diagnosis Iron deficiency anemia Vitamin D deficiency PAST SURGICAL HISTORY Procedure Laterality Date CARPAL TUNNEL bilateral DELIVERY ONLY 08/05/12 LAPAROSCOPY SURG CHOLECYSTECTOMY 07/01/2018 Cholecystectomy, lap SOCIAL HISTORY Social History Tobacco Use Smoking status: Every Day Current packs/day: 0.00 Types: Cigarettes Last attempt to quit: 04/13/2015 Years since quittin.4 Smokeless tobacco: Never Tobacco comments: Pateint only uses the Vape She doesnt smoke nicotine Vaping Use Vaping status: Some Days Substance Use Topics Alcohol use: Yes Comment: occassional Drug use: No MEDICATIONS: acetaminophen (TYLENOL) 325 mg tablet Take 2 tablets by mouth every 6 hours. aspirin 81 mg chewable tablet Take 1 tablet by mouth once daily. atorvastatin (LIPITOR) 40 mg tablet Take 1 tablet by mouth daily at bedtime. dextrose (TRUEPLUS) 15 gram/32 mL oral gel Take 32 mL by mouth as needed (blood glucose is less than 70 mg/dL). enoxaparin (LOVENOX) 100 mg/mL syrg Inject 0.95 mL subcutaneously every 12 hours. gabapentin (NEURONTIN) 600 mg tablet Take 1 tablet by mouth every 8 hours for 90 days. insulin lispro 100 unit/mL injection Inject 0-10 Units subcutaneously with meals and at bedtime. insulin lispro 100 unit/mL injection Inject 0-10 Units subcutaneously once daily. Daily @ 3AM labetalol (NORMODYNE) 20 mg/4 mL (5 mg/mL) syrg Inject 2 mL intravenously every 4 hours as needed (SBP >160). loperamide (IMODIUM) 2 mg cap(s) Take 1 capsule by mouth before meals and at bedtime. naloxone (NARCAN) 0.4 mg/mL soln Inject 0.25 mL intramuscularly as needed for known or suspected opioid overdose. escitalopram oxalate (LEXAPRO) 20 mg tablet Take 2 tablets by mouth once daily. omeprazole (PRILOSEC) 40 mg capsule Take 1 capsule by mouth once daily. OLANZapine (ZYPREXA) 20 mg tablet Take 1 tablet by mouth daily at bedtime. (Patient not taking: Reported on 09/19/2024) ALLERGIES: ALLERGIES Allergen Reactions Hydrocodone-Acetami* GI Upset hyperactivity PHYSICAL EXAM: BP 132/92 (BP Site: Left Arm, BP Position: Sitting) Pulse 114 LMP 08/29/2024 SpO2 96% General: Alert and oriented HEENT: EOM intact Cardiovascular: Normal S1 & S2, Pulse tachycardic Lungs: Normal breath sounds, no wheezes or crackles. Abdomen: Soft, mild tenderness on palpation. Midline incision c/d/I with gilberto present. LLQ ostomy site c/d/I. Extremities: No deformity, no edema or tenderness, no joint swelling or clubbing. Neurological: Normal cognition and motor skills. Vascular: Bilateral LE fasciotomy sites c/d/I with gilberto present. No drainage, erythema or edema noted. R AT/PT doppler signals present; L AT doppler signal present. Continued mottling/duskiness of bilateral toes; areas of necrosis noted right 2nd toe and left toes 1-4 Diagnostic tests reviewed for today's visit: Most recent imaging BLE arterial duplex IMPRESSION RIGHT SIDE External iliac artery distal: patent . Common femoral artery mid: patent . Profunda femoral artery proximal: patent . Superficial femoral artery : patent . Popliteal artery : patent . Posterior tibial artery distal: occluded . Posterior tibial artery distal: reconstituted . Collateral flow noted. Peroneal artery : patent . Anterior tibial artery : patent . LEFT SIDE External iliac artery distal: patent . Common femoral artery mid: patent . Profunda femoral artery proximal: patent . Superficial femoral artery : patent . Popliteal artery : patent . Posterior tibial artery : patent . Peroneal artery : patent . Anterior tibial artery : patent . PVR IMPRESSION: Ms. Evans is a 39 year old female s/p ex-lap w/ small and thromboembolectomy of anterior tibial artery, posterior tibial artery, and peroneal arteries bilaterally and bilateral LE fasciotomies on 08/20/2024. Pt stable post-operatively. Denies claudication/rest pain. Foot wounds unchanged. BLE fasciotomy sites healed. No s/s of infection. [place] removed and pt tolerated. Imaging today shows KASSIDY R 0.80 and L 0.90 and BLE arterial duplex shows LLE patent and RLE with known occlusion at posterior tibial artery that is reconstituted at distal. PLAN and RECOMMENDATIONS: - Keep BLE incisions clean, wash daily with antimicrobial soap and water then pat dry - Continue wound care for feet with facility wound care team - Continue optimal medical management - Continue aspirin/lovenox - Continue cardiovascular risk factor modification with blood pressure control and statin therapy as tolerated - Follow up with General Surgery and Vascular Medicine as scheduled - Follow up in 6 months with PVR/arterial duplex with Dr Goncalves - Return sooner if clinically indicated SIGNATURE: Angela Blackwood APRN.CNP PATIENT NAME: Daly Evans DATE: September 19, 2024 TIME: 1434 documented in this encounter [facility] 09-17-2024 Note Discharge Instructio ns Discharge Summary [address] [address] [id number] 09/17/2024 Patient: DALY EVANS Sex: Female : 1985 Age: 39y Thank you for visiting [facility]. You have been evaluated today by Donte Meza D.O. for the following condition(s): Principal Diagnosis Generalized abdominal pain. (Postoperative abdominal pain). Vomiting with nausea. status post abdominal surgery with left-sided ostomy. INSTRUCTIONS (CT scan of the abdomen pelvis showed no acute surgical problem. Case discussed with Dr. Putnam.). Warnings: GENERAL WARNINGS: Return or contact your physician immediately if your condition worsens or changes unexpectedly, if not improving as expected, or if other problems arise. Understanding of the discharge instructions verbalized by patient. Follow-up with: Maggie Putnam MD, [facility], Internal Medicine, Phone: [phone], [address] [place] [id number]. Follow up in two days. Reason for referral: evaluation and treatment. Summary of care provided to follow-up provider and patient. Patient Signature 1 of 2 Discharge Instructions Facility Computer Project Manager Date/Time General Instructions with ExitWriter [address] [place] [address] [phone] 09/17/2024 Patient: DALY EVANS Sex: Female : 1985 Age: 39y Thank you for visiting [facility]. You have been evaluated today by Donte Meza D.O. for the following condition(s): Principal Diagnosis Generalized abdominal pain. (Postoperative abdominal pain). Vomiting with nausea. status post abdominal surgery with left-sided ostomy. INSTRUCTIONS (CT scan of the abdomen pelvis showed no acute surgical problem. Case discussed with Dr. Putnam.). Warnings: GENERAL WARNINGS: Return or contact your physician immediately if your condition worsens or changes unexpectedly, if not improving as expected, or if other problems arise. Understanding of the discharge instructions verbalized by patient. Follow-up with: Maggie Putnam MD, [facility], Internal Medicine, Phone: [phone], [address] [place] [id number]. Follow up in two days. Reason for referral: evaluation and treatment. Summary of care provided to follow-up provider and patient. 2 of 2 [facility] 09-12-2024 Telephone encounter Note Called placed to Stefany at the pt's [facility] facility. Spoke to Stefany and she gave me the patient's room phone number. Tried calling the [phone] (pt's room phone number) but the pt did not answer and I was unable to leave a message. Will try again tomorrow. [facility] 09-12-2024 Miscellaneous Notes Called placed to Stefany at the pt's [facility] facility. Spoke to Stefany and she gave me the patient's room phone number. Tried calling the [phone] (pt's room phone number) but the pt did not answer and I was unable to leave a message. Will try again tomorrow. documented in this encounter [facility] 09-12-2024 Telephone encounter Note Scheduled with Stefany. [facility] Work Phone: 09-12-2024 Miscellaneous Notes Scheduled with Stefany. 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 Okay to schedule with either physician. Donna Hill LPN Received call from Stefany bazan [facility] stating Dr. Putnam would like patient to be seen by hematology, discharge papers showing blood clots. Patient had been seen at [facility] in vascular. Please advise Stefany at [phone] documented in this encounter [facility] 09-12-2024 Telephone encounter Note DX: Acute phase response (low PC/PS/ATIII, elevated Factor VII, CRP); looks like lupus anticoagulant will be positive (+mix, platelet neutralization, hex phase), aCL and B2GP abs normal PHN, ANDREW-2, UPEP normal SPEP with +M protein Had embolectomy in July. Okay to schedule with either physician. Donna Hill LPN [facility] 09-12-2024 Telephone encounter Note Received call from Stefany bazan [facility] stating Dr. Putnam would like patient to be seen by hematology, discharge papers showing blood clots. Patient had been seen at [facility] in vascular. Please advise Stefany at [phone] [facility] 09-11-2024 Telephone encounter Note Jose Cutler, Looks like this patient was discharged to a facility. Maybe Stefany knows of a way to reach the patient directly? ThanksShi [facility] 09-11-2024 Miscellaneous Notes Jose Cutler, Looks like this patient was discharged to a facility. Maybe Stefany knows of a way to reach the patient directly? ThanksShi Stefany from the patients [facility] is calling in stating that the patients discharge instructions state to consult with the center for gut rehab regarding patients short bowel syndrome. Stefany is asking for a call back at [phone]. documented in this encounter [facility] 09-11-2024 Telephone encounter Note Stefany from the [facility] is calling in stating that the patients discharge instructions state to consult with the center for gut rehab regarding patients short bowel syndrome. Stefany is asking for a call back at [phone]. [facility] 09-10-2024 Telephone encounter Note 2nd call placed, left a vm. Letter sent as well. Will close referral on 09/17 if I do not hear back. [facility] 09-10-2024 Miscellaneous Notes 2nd call placed, left a vm. Letter sent as well. Will close referral on 09/17 if I do not hear back. documented in this encounter [facility] 09-06-2024 Telephone encounter Note Called pt but was unable to leave vm due to vm box full. Tried calling her father Ernst and left him a vm to give our office a call back to begin referral for short bowel. [facility] 09-06-2024 Miscellaneous Notes Called pt but was unable to leave vm due to vm box full. Tried calling her father Ernst and left him a vm to give our office a call back to begin referral for short bowel. documented in this encounter [facility] 09-05-2024 Telephone encounter Note Triage please? Stefany from [facility] called for appt for patient with Dr Goncalves.Patient had surgery with Dr Palomares in Jul 2024 please advise? Thanks, [facility] 09-05-2024 Miscellaneous Notes Triage please? Stefany from [facility] called for appt for patient with Dr Goncalves.Patient had surgery with Dr Palomares in Jul 2024 please advise? Thanks, Reason for call: Stefany would like to schedule an appointment with Dr Goncalves for f/up Home and cell number [phone] Diagnosis-f/up Best regardsKev documented in this encounter [facility] 09-05-2024 Telephone encounter Note Reason for call: Stefany would like to schedule an appointment with Dr Goncalves for f/up Home and cell number [phone] Diagnosis-f/up Best regardsKev [facility] 09-03-2024 Telephone encounter Note Received referral from referral triage for short bowel. Will call the pt for intake once discharged. [facility] 09-03-2024 Miscellaneous Notes Received referral from referral triage for short bowel. Will call the pt for intake once discharged. documented in this encounter [facility] 08-29-2024 Telephone encounter Note Left multiple messages by phone sent my chart message. [facility] 08-29-2024 Telephone encounter Note ----- Message from Xochilt Gaston APRN.MANAGER CLINICAL RESEARCH sent at 08/08/2024 4:07 PM EST ----- Routing information can be restored upon returning to the encounter [facility] 08-29-2024 Miscellaneous Notes Left multiple messages by phone sent my chart message. ----- Message from Xochilt Gaston APRN.JUANY sent at 08/08/2024 4:07 PM EST ----- Routing information can be restored upon returning to the encounter Line busy will need to try back. ----- Message from Xochilt Gaston APRN.MANAGER CLINICAL RESEARCH sent at 08/08/2024 4:07 PM EST ----- Routing information can be restored upon returning to the encounter Called and left message on patients voicemail to return call to the office and ask to speak with a FM triage nurse. Lauren Hull MA ----- Message from Xochilt Gaston APRN.MANAGER CLINICAL RESEARCH sent at 08/08/2024 4:07 PM EST ----- Routing information can be restored upon returning to the encounter Left message to return call Akiko Pettit MA Please let her know that I received her lab results. Her iron is definitely low as well as her hemoglobin. I would like her to increase her ferrous sulfate 325mg to twice daily from once daily, with food. Does she need a refill for this? I'd also like to repeat her labs again in 2 months. Her potassium level is in a good range. Has she been taking the potassium supplement, 40 meq daily,regularly? Her A1C diabetes level remains on the lower end of the diabetes range. No other concerns. Xochilt Gaston APRN.MANAGER CLINICAL RESEARCH documented in this encounter [facility] 08-29-2024 Telephone encounter Note Line busy will need to try back. [facility] 08-29-2024 Telephone encounter Note ----- Message from Xochilt Gaston APRN.MANAGER CLINICAL RESEARCH sent at 08/08/2024 4:07 PM EST ----- Routing information can be restored upon returning to the encounter [facility] 08-20-2024 History of Present illness Narrative Images from the original note were not included. Critical Care Transport Note Patient Name: Daly Joaquinr Service Date: 08/20/24 Referring Physician: Jeannine Referring Facility: [facility] Accepting Physician: David Accepting Facility: [facility] SUBJECTIVE/CHIEF COMPLAINT: abdominal pain, nausea REASON FOR TRANSPORT: Specialized tertiary and quaternary care for the patient's acute cardiovascular condition not available at the referring facility. History of Present Illness: The following history is what was known to CCT team at time of given care and summarized through review of available medical records, patient/family interview and from referring physician and nursing report. Daly Estrella Lover is a 38 year old female with a past medical history significant for bipolar disorder, borderline personality disorder, anemia, smoking/vaping and vit D deficiency. She presented to [facility] early this AM for evaluation of acute abdominal pain and N/V. Per report she had N/V for a few hours prior to admission, small amount of blood in emesis with associated abdominal pain across the top of her abdomen. In the ED she was hypertensive, remained nauseated. CT/CTA abd/pelvis showed mural thrombus in descending thoracic aorta with abrupt cut off of SMA 5 cm proximal to it's origin consistent with thrombus, thrombus at the origin of the L internal iliac artery, bowel distension suggestive of enteritis, no pneumoperitoneum, +ileus. She was started on Heparin infusion and given morphine intermittently for pain. WBC 25, BUN/Creat 14/1.29 (unknown baseline renal function). At this time, the physician managing the patient requested transfer to the [facility] for tertiary and/or quaternary services unavailable at the referring facility. The physician managing the patient requested the [facility] Critical Care Transport Team transport and treat the patient for the purpose of tertiary care, evaluation, and management of her acute aortic mural thrombus with SMA occlusion condition(s). Air medical transport was requested to reduce the [id number] time, 19 minutes by air vs. approximately 75 minutes by ground, with the potential for increased ground transport time secondary to: distance between facilities and the patient's condition requiring an emergent procedure or evaluation not available at the referring facility and distance between facilities and ground round transport time would be excessive and detrimental to patient given current clinical status ROS: RESPIRATORY: Negative for cough, hemoptysis, wheezing, COPD, dyspnea or shortness of breath CARDIOVASCULAR: +bilateral leg pain overnight that has resolved. Negative for chest pain, leg swelling, hypertension, CHF or palpitations GI: +nausea, vomiting overnight MUSCULOSKELETAL:See cardiovascular. Negative for joint pain or swelling, back pain or muscle pain HEMATOLOGY/LYMPHOLOGY: Negative for prolonged bleeding, bruising easily or swollen nodes. NEURO: No peripheral numbness or tingling. No history of headaches, syncope, paralysis, seizures or tremors The remainder of the review of systems is negative. PAST MEDICAL HISTORY: PAST MEDICAL HISTORY Diagnosis Date Attempted suicide (HCC) polysubstance Bipolar depression (HCC) [facility] Gestational diabetes mellitus in Impaired fasting blood sugar 06/2015 a1c 5.7% at diagnosis Iron deficiency anemia Vitamin D deficiency PAST SURGICAL HISTORY: PAST SURGICAL HISTORY Procedure Laterality Date CARPAL TUNNEL bilateral DELIVERY ONLY 08/05/12 LAPAROSCOPY SURG CHOLECYSTECTOMY 07/01/2018 Cholecystectomy, lap ALLERGIES: Hydrocodone-Acetaminophen SOCIAL HISTORY: Social History Tobacco Use Smoking status: Every Day Current packs/day: 0.00 Types: Cigarettes Last attempt to quit: 04/13/2015 Years since quittin.3 Smokeless tobacco: Never Tobacco comments: Pateint only uses the Vape She doesnt smoke nicotine Vaping Use Vaping status: Some Days Substance Use Topics Alcohol use: Yes Comment: occassional Drug use: No HOME MEDICATIONS: codeine-guaiFENesin (ROBITUSSIN AC) 10-100 mg/5 mL syrup^Take 5 mL by mouth four times a day as needed for up to 5 days.^Disp: 100 mL^Rfl: 0 methylPREDNISolone (MEDROL, JULIAN,) 4 mg Dose-Pack^Take as instructed per package.^Disp: 21 tablet^Rfl: 0 hydrocortisone (AQUAPHOR ITCH RELIEF) 1 % ointment^Apply to affected area two times a day.^Disp: 453.6 g^Rfl: 1 triamcinolone acetonide (KENALOG) 0.1 % cream^Apply to affected area two times a day.^Disp: 453.6 g^Rfl: 1 potassium chloride 20 mEq TbER^Take 2 tablets by mouth every afternoon.^Disp: 60 tablet^Rfl: 2 ferrous sulfate 325 mg (65 mg iron) tablet^Take 1 tablet by mouth once daily.^Disp: ^Rfl: norgestimate 0.25 mg-ethinyl estradiol 35 mcg (SPRINTEC) 0.25-35 mg-mcg per tablet^Take 1 tablet by mouth once daily. Okay to skip placebo week and start on next package^Disp: 112 tablet^Rfl: 3 escitalopram oxalate (LEXAPRO) 20 mg tablet^Take 2 tablets by mouth once daily.^Disp: 60 tablet^Rfl: 0 OLANZapine (ZYPREXA) 20 mg tablet^Take 1 tablet by mouth daily at bedtime.^Disp: 30 tablet^Rfl: 0 prazosin (MINIPRESS) 2 mg cap^Take 1 capsule by mouth daily at bedtime.^Disp: 30 capsule^Rfl: 3 omeprazole (PRILOSEC) 40 mg capsule^Take 1 capsule by mouth once daily.^Disp: 30 capsule^Rfl: 11 ibuprofen (MOTRIN) 800 mg tablet^Take 1 tablet by mouth every 8 hours as needed for pain. Take with food.^Disp: 60 tablet^Rfl: 1 diclofenac (VOLTAREN ARTHRITIS PAIN) 1 % topical gel^Apply 2 g to affected area twice daily as needed (joint pain hand or knee).^Disp: 100 g^Rfl: 1 Medications Administered by Referring Facility: Heparin 4,000 units Heparin 1,000 units/hr Morphine 4 mg IV x 2 OBJECTIVE: Recent Labs, Diagnostics & Procedure Reports reviewed as available. Referring Facility Labs CBC: WBC 25.2k Hgb 9.4 Hct 33.5 Plt 381K CHEMISTRY: Na 139 K 3.6 Cl 106 CO2 22 BUN 14 SCr 1.29 Glu 187 Ca 8.8 AG 11 Liver enzymes AST 25 ALT 15 AP 98 Tbili 0.3 TP 8.6 Alb 3.0 Lipase: 26 Diagnostics & Procedure Reports EC-lead not available for review, per notes, NSR, rate 64, no ST changes, QTc 462 CT Scan abd/pelvis: (per OSH radiology report) Diffuse bowel distention, which can be seen with entereitis. No bowel dilation or obstruction. No ascites or pneumoperitoneum Abrupt incomplete opacification of the proximal SMA, likely secondary to mixing artifact of contrast. Mural aortic thrombus within the descending thoracic aorta. CTA abd/pelvis: (per OSH radiology report) Soft appearing mural thrombus is noted within the descending thoracic aorta as above There is again persistent abrupt cut off of the SMA proximally 5 cm from it's origin consistent with thrombus as above Mildly prominent small bowel loops with scattered air-fluid levels suggesting ileus Findings concerning for possible thrombus at the origin of the left internal iliac artery as above Procedure/Operative Report(s): None Invasive Lines/Devices/Tubes Placed by Referring Facility: PIV x 2 PHYSICAL EXAM: Upon CCT Arrival at Referring Facility Vital Signs: HR 74bpm, BP 169/107mmHg, RR 20, SpO2 93% Oxygen/Ventilator Settings: RA General appearance: alert. HEENT: normocephalic, EOMI, PERRL 2 mm, briskly reactive. Oropharynx clear, no plaques or exudates, Posterior Oropharynx symmetric, Mucous membranes moist, Nasal mucosa non-edematous, and No rhinorrhea Respiratory: clear to auscultation bilaterally, no respiratory distress, no rales, no rhonchi, no wheezing, no retractions, no cyanosis. Cardiovascular: no murmurs, no rubs, no gallops, regular rate and rhythm, peripheral pulses palpable and symmetric, 1+. No peripheral edema noted. Extremities warm, cap refill < 3 sec Gastrointestinal: soft, nontender, nondistended, no organomegaly, normal bowel sounds, and no masses. Genitourinary: Exam deferred Musculoskeletal: No clubbing, cyanosis or edema, no joint swelling, no bony tenderness, and no deformities Skin: Multiple small puncture like scabs noted to bilateral feet/ankles. Otherwise, normal, no abrasions or open wounds, no rashes noted Heme/Lymph: No petechiae. No abnormal bruising or bleeding noted Neurologic: Awake, alert and oriented x 3, normal speech, No involuntary motions, Normal sensation GCS Eyes: 4. Spontaneous Verbal: 5: Oriented Motor: 6: Obeys Motor commands Total: 15 CRITICAL CARE COURSE Upon bedside arrival at referring facility the patient was assessed and detailed physical exam performed. Initial exam findings as described above. The patient was placed on the transport monitor and all transport equipment transitioned in standard fashion. Pt awake, oriented, c/o abdominal pain and nausea, pulses palpable in all extremities. She was given zofran 4 mg and fentanyl 50 mcg IV. The patient was transferred to the transport cot and transported to the Aircraft and loaded without incident. En-route she was given metoprolol 5 mg IV x 2 and started on nipride infusion for hypertension. She was also placed on O2 via NC for mild hypoxia. The patient was medically managed, monitored, and reassessed during transport. Medications Managed & Administered by CCT: Heparin 1,000 units/hr Nitroprusside - started and titrated Metoprolol 5 mg IV x 2 Zofran 4 mg Fentanyl 50 mcg Procedures Performed by CCT: Arterial line placement ASSESSMENT/PLAN: Daly Evans is a 38 year old female was admitted to OSH with acute onset abdominal pain, N/V. CT/CTA noted mural thrombus of descending aorta with SMA occlusion. Acute descending aortic mural thrombus Hypertensive emergency Abdominal pain Nausea Hypoxia - Initial exam as noted above, pt awake, oriented, following commands - Acute abdominal pain with N/V started in evening yesterday - CT/CTA showed mural thrombus descending aorta to left internal iliac with SMA occlusion - Heparin 4,000 bolus given and Heparin infusion at 1,000 started in ED - Pain control with PRN fentanyl - Zofran for continued nausea - Arterial line for continuous BP monitoring - Metoprolol as needed - Start nitroprusside for additional BP management - O2 via NC as needed to maintain SaO2 >/= 93% - Expedite transport to [facility] for further workup and care The transport was completed without significant incident or change in the patient's status. The patient was transported to the the [facility] by Rotor (Helicopter) for tertiary and/or quaternary evaluation and management of her Emergent Surgical condition(s). Upon arrival to the receiving facility, a [id number] report was given to bedside nursing staff in [facility] and bedside medical team . Patient care was transferred. The patient condition was Critical and Acutely Ill at the time of transfer. Vital Signs at time care transferred to the receiving facility unit: HR 70bpm, Rhythm NSR, BP 156/84 mmHg, RR 20, SpO2 94% on 2 L O2 via NC SPECIAL EQUIPMENT: None MODE OF TRANSPORT: Rotor (Helicopter) CRITICAL CARE TIME:I personally performed 30 minutes of critical care time exclusive of separately billable procedures, ambulance charges and treating other patients. This was necessary to treat or prevent further deterioration of the following condition(s): Acute aortic mural thrombus, SMA occlusion, N/V, abdominal pain and the Cardiovascular impairment, Respiratory impairment, TOY CONSULTANT impairment, Shock, Cardiac Arrest, and Severe metabolic abnormality which the patient had and/or had a high probability of suddenly developing. SIGNATURE: Katelyn Villagran APRN.CNP Acute Care Nurse Practitioner [facility] Critical Care Transport Team documented in this encounter [facility] 08-20-2024 Procedure note Procedure(s): ARTERIAL LINE PLACEMENT Images from the original note were not included. Arterial Line PROCEDURE NOTE Patient: Daly Evans Date: August 20, 2024 Procedure Time: 834 INFORMED CONSENT: Informed consent was not obtained due to clinical factors necessitating an emergent procedure. SAFE PRACTICE Sign in Communication: Emergent N/A. Time Out: The procedural team confirmed the Correct Patient, the Correct Procedure, the Correct Site and the Correct Position (if applicable) during the audible time out: Emergent N/A. Sign Out Communication: Emergent N/A. INDICATION FOR LINE PLACEMENT: Continuous blood pressure monitoring CONDITION OF LINE PLACEMENT: Sterile PRIMARY PROCEDURALIST: LES Gray PROCEDURE NARRATIVE Site Marked: Yes Chapo s Test yes Skin Preparation: Chlorhexidine Gluconate Barriers Used by Proceduralist and All Assisting Personnel: Yes Barriers Used: Sterile Gloves CATHETER PLACEMENT/PLACEMENT TECHNIQUE Anesthesia was obtained with Lidocaine 1%. The right radial artery was cannulated with a 20 g arterial catheter. Number of attempts at insertion: 1 Bright red pulsatile blood exited catheter:Yes Appropriate wave form was noted: Yes Line Secured with: sterile transparent dressing and tape Sterile dressing applied and dated: Yes Estimated Blood Loss: < 3 ml Procedure was performed while vehicle in motion: yes COMPLICATIONS: None. The patient tolerated the procedure well Successful Placement: yes SIGNATURE: Katelyn Villagran APRN.CNP PATIENT NAME: Daly Evans DATE: 08/20/24 [facility] 08-20-2024 Procedure note Procedure(s): ARTERIAL LINE PLACEMENT Images from the original note were not included. Arterial Line PROCEDURE NOTE Patient: Daly Evans Date: August 20, 2024 Procedure Time: 834 INFORMED CONSENT: Informed consent was not obtained due to clinical factors necessitating an emergent procedure. SAFE PRACTICE Sign in Communication: Emergent N/A. Time Out: The procedural team confirmed the Correct Patient, the Correct Procedure, the Correct Site and the Correct Position (if applicable) during the audible time out: Emergent N/A. Sign Out Communication: Emergent N/A. INDICATION FOR LINE PLACEMENT: Continuous blood pressure monitoring CONDITION OF LINE PLACEMENT: Sterile PRIMARY PROCEDURALIST: LES Gray PROCEDURE NARRATIVE Site Marked: Yes Chapo s Test yes Skin Preparation: Chlorhexidine Gluconate Barriers Used by Proceduralist and All Assisting Personnel: Yes Barriers Used: Sterile Gloves CATHETER PLACEMENT/PLACEMENT TECHNIQUE Anesthesia was obtained with Lidocaine 1%. The right radial artery was cannulated with a 20 g arterial catheter. Number of attempts at insertion: 1 Bright red pulsatile blood exited catheter:Yes Appropriate wave form was noted: Yes Line Secured with: sterile transparent dressing and tape Sterile dressing applied and dated: Yes Estimated Blood Loss: < 3 ml Procedure was performed while vehicle in motion: yes COMPLICATIONS: None. The patient tolerated the procedure well Successful Placement: yes SIGNATURE: Katelyn Villagran APRN.CNP PATIENT NAME: Daly Evans DATE: 08/20/24 documented in this encounter [facility] 08-16-2024 History of Present illness Narrative Chief Complaint Patient presents with: Acute Visit: Cough, chest congestion & discomfort x 1 week HPI Daly Evans is a 38 year old female who presents here today for Above Complaints.. Cough- One week ago cough started, and then chest congestion. Cough is productive with thick clear mucus. States it has gotten progressively worse. Has tried robitussin, theraflu with minimal relief. States laying down makes symptoms worse and it is difficult to sleep d/t cough. Denies SOB, fever, chills, body aches. Dry skin- For one week has had dry, itchy skin over her hands, arms and legs. States she has be applying lotion with no relief. Pt reports she is constantly itching with no relief. Past medical history, appointments, medications, allergies reviewed. Previous Medical History PAST MEDICAL HISTORY Diagnosis Date Attempted suicide (HCC) polysubstance Bipolar depression (HCC) [facility] Gestational diabetes mellitus in Impaired fasting blood [...] on File Prior to Visit Medication Sig potassium chloride 20 mEq TbER Take 2 tablets by mouth every afternoon. ferrous sulfate 325 mg (65 mg iron) tablet Take 1 tablet by mouth once daily. norgestimate 0.25 mg-ethinyl estradiol 35 mcg (SPRINTEC) 0.25-35 mg-mcg per tablet Take 1 tablet by mouth once daily. Okay to skip placebo week and start on next package escitalopram oxalate (LEXAPRO) 20 mg tablet Take 2 tablets by mouth once daily. OLANZapine (ZYPREXA) 20 mg tablet Take 1 tablet by mouth daily at bedtime. prazosin (MINIPRESS) 2 mg cap Take 1 capsule by mouth daily at bedtime. omeprazole (PRILOSEC) 40 mg capsule Take 1 capsule by mouth once daily. ibuprofen (MOTRIN) 800 mg tablet Take 1 tablet by mouth every 8 hours as needed for pain. Take with food. diclofenac (VOLTAREN ARTHRITIS PAIN) 1 % topical gel Apply 2 g to affected area twice daily as needed (joint pain hand or knee). No current facility-administered medications on file prior to visit. Social History Social History Tobacco Use Smoking status: Every Day Current packs/day: 0.00 Types: Cigarettes Last attempt to quit: 04/13/2015 Years since quittin.3 Smokeless tobacco: Never Tobacco comments: Pateint only uses the Vape She doesnt smoke nicotine Vaping Use Vaping status: Some Days Substance Use Topics Alcohol use: Yes Comment: occassional Drug use: No Review of Symptoms REVIEW OF SYSTEMS See HPI, otherwise negative EXAM: BP 106/64 (BP Site: Left Arm, BP Position: Sitting, BP Cuff Size: Regular Adult) Pulse 104 Temp 36.4 C (97.5 F) (Temporal) Wt 98.2 kg (216 lb 9.6 oz) LMP 04/20/2021 (Approximate) SpO2 98% BMI 33.21 kg/m General Appearance: Well appearing, alert, in no acute distress, well-hydrated, well nourished.. Skin: Positives: Erythema, Excoriation, Dry, Flaking skin of bilateral hands, forearms, and lower legs. Lungs: Lungs clear to auscultation. No wheezing, rhonchi, rales.. Heart: RRR without murmur, gallop, or rubs. No ectopy. Psychiatric: pleasant, cooperative Health Maintenance List Depression Screening Never done Hepatitis C Screening Never done Cervical Cancer Screening due on 07/12/2023 Mammogram Screening due on 08/07/2025 Hepatitis B Vaccine(1 of 3 - 19+ 3-dose series) due on 08/07/2025 HIV Screening due on 08/07/2025 Pneumococcal Vaccine(1 of 2 - PCV) due on 08/07/2025 DTaP,Tdap,Td Vaccine(2 - Td or Tdap) due on 05/21/2029 Influenza Vaccine Discontinued Covid-19 Vaccine Discontinued Data reviewed ASSESSMENT/PLAN: 1. Productive cough - ICD9: 786.2, ICD10: R05.8 (primary diagnosis) - Instructed patient to increase rest and fluids - CODEINE 10 MG-GUAIFENESIN 100 MG/5 ML ORAL LIQUID - METHYLPREDNISOLONE 4 MG TABLETS IN A DOSE PACK - TRIAMCINOLONE ACETONIDE 0.1 % TOPICAL CREAM - CODEINE 10 MG-GUAIFENESIN 100 MG/5 ML ORAL LIQUID - METHYLPREDNISOLONE 4 MG TABLETS IN A DOSE PACK - TRIAMCINOLONE ACETONIDE 0.1 % TOPICAL CREAM 2. Eczema, unspecified type - ICD9: 692.9, ICD10: L30.9 - discussed skin care of rash: pat dry after shower then apply topical triamcinolone cream. Apply Aquaphor to hands and don knit gloves for relief of dryness - follow up if symptoms persist or worsen. - TRIAMCINOLONE ACETONIDE 0.1 % TOPICAL CREAM - TRIAMCINOLONE ACETONIDE 40 MG/ML SUSPENSION FOR INJECTION - HYDROCORTISONE 1 % TOPICAL OINTMENT - HYDROCORTISONE 1 % TOPICAL OINTMENT - TRIAMCINOLONE ACETONIDE 0.1 % TOPICAL CREAM Sandra Baldwin Previous records, office notes, PDMP report PDMP website checked and validated. All prescriptions have been APPROPRIATELY filled. No suspicious activity was identified. 08/16/2024 by Xochilt Gaston CNP. Attending Note I have personally performed a face to face assessment of the patient and have reviewed the ISHAAN note and agree. Other additions or changes: As edited Signature: Xochilt Gaston Date: 08/16/2024 Time: 3:37 PM documented in this encounter [facility] 08-10-2024 Telephone encounter Note Called and left message on patients voicemail to return call to the office and ask to speak with a triage nurse. Lauren Hull MA [facility] 08-08-2024 Telephone encounter Note ----- Message from Xochilt Gaston APRN.CNP sent at 08/08/2024 4:07 PM EST ----- Routing information can be restored upon returning to the encounter [facility] 08-08-2024 Telephone encounter Note Left message to return call Akiko Pettit MA [facility] 08-08-2024 Telephone encounter Note Please let her know that I received her lab results. Her iron is definitely low as well as her hemoglobin. I would like her to increase her ferrous sulfate 325mg to twice daily from once daily, with food. Does she need a refill for this? I'd also like to repeat her labs again in 2 months. Her potassium level is in a good range. Has she been taking the potassium supplement, 40 meq daily,regularly? Her A1C diabetes level remains on the lower end of the diabetes range. No other concerns. Xochilt Gaston APRN.CNP [facility] 08-07-2024 Telephone encounter Note Lexapro and Zyprexa prescription was sent to the patient's pharmacy. [facility] 08-07-2024 Miscellaneous Notes Lexapro and Zyprexa prescription was sent to the patient's pharmacy. Appreciate the update. Glad her EKG was normal and she was able to come in to see you. Will send in her refills. Jose Tipton, We did Daly's EKG today and it looks great, completely normal. She asked me to let you know because you needed it for medication management. Thanks! documented in this encounter [facility] 08-07-2024 Telephone encounter Note Appreciate the update. Glad her EKG was normal and she was able to come in to see you. Will send in her refills. [facility] 08-07-2024 Telephone encounter Note Jose Tipton We did Daly's EKG today and it looks great, completely normal. She asked me to let you know because you needed it for medication management. Thanks! [facility] 08-07-2024 History of Present illness Narrative Chief Complaint Patient presents with: Yearly Exam: Was in ER 2/ for dizziness, low potassium and anemia, needs EKG per clayton PAIZ Daly Estrella Lover is a 38 year old female who presents here today for Above Complaints. ER f/u-was in ER on 07/31 for dizziness, low potassium, anemia. Was started on ferrous sulfate 325mg daily and she has started taking this Was also found to have low potassium, she was sent home with rx for Kcl 40meq daily. Psychiatry requesting EKG-for medication management. Stating she is feeling very down and needs to get back on her psychiatric meds. Denies SI/HI. Past medical history, appointments, medications, allergies reviewed. [...] on File Prior to Visit Medication Sig ferrous sulfate 325 mg (65 mg iron) tablet Take 1 tablet by mouth once daily. potassium chloride 20 mEq TbER Take 2 tablets by mouth every afternoon. OLANZapine (ZYPREXA) 20 mg tablet Take 1 tablet by mouth daily at bedtime. escitalopram oxalate (LEXAPRO) 20 mg tablet Take 2 tablets by mouth once daily. prazosin (MINIPRESS) 2 mg cap Take 1 capsule by mouth daily at bedtime. norgestimate 0.25 mg-ethinyl estradiol 35 mcg (SPRINTEC) 0.25-35 mg-mcg per tablet Take 1 tablet by mouth once daily. Okay to skip placebo week and start on next package omeprazole (PRILOSEC) 40 mg capsule Take 1 capsule by mouth once daily. ibuprofen (MOTRIN) 800 mg tablet Take 1 tablet by mouth every 8 hours as needed for pain. Take with food. diclofenac (VOLTAREN ARTHRITIS PAIN) 1 % topical gel Apply 2 g to affected area twice daily as needed (joint pain hand or knee). No current facility-administered medications on file prior to visit. Social History Social History Tobacco Use Smoking status: Every Day Current packs/day: 0.00 Types: Cigarettes Last attempt to quit: 04/13/2015 Years since quittin.3 Smokeless tobacco: Never Tobacco comments: Pateint only uses the Vape She doesnt smoke nicotine Vaping Use Vaping status: Some Days Substance Use Topics Alcohol use: Yes Comment: occassional Drug use: No Review of Symptoms REVIEW OF SYSTEMS See HPI, otherwise negative EXAM: BP 108/72 (BP Site: Left Arm, BP Position: Sitting, BP Cuff Size: Regular Adult) Pulse 106 Ht 172 cm (5' 7.72) Wt 98 kg (216 lb) LMP 04/20/2021 (Approximate) SpO2 96% BMI 33.12 kg/m General Appearance: Well appearing, alert, in no acute distress, well-hydrated, well nourished.. Lungs: Lungs clear to auscultation. No wheezing, rhonchi, rales.. Heart: RRR without murmur, gallop, or rubs. No ectopy. Psychiatric: cooperative, depressed, flat affect, denies SI/HI. Health Maintenance List Depression Screening Never done Hepatitis C Screening Never done HIV Screening Never done Hepatitis B Vaccine(1 of 3 - 19+ 3-dose series) Never done Pneumococcal Vaccine(1 of 2 - PCV) Never done Cervical Cancer Screening due on 07/12/2023 Mammogram Screening Never done Influenza Vaccine(1) due on 02/26/2024 Covid-19 Vaccine( - season) Never done DTaP,Tdap,Td Vaccine(2 - Td or Tdap) due on 05/21/2029 Data reviewed Previous records, office notes ASSESSMENT/PLAN: 1. Medication management - ICD9: V58.69, ICD10: Z79.899 (primary diagnosis) NSR, will notify psychiatry. - ECG COMPLETE 2. Hypokalemia - ICD9: 276.8, ICD10: E87.6 Recheck CBC & potassium, iron and A1C as well. - COMPLETE BLOOD COUNT AND DIFFERENTIAL - IRON AND TIBC - HEMOGLOBIN A1C - COMPREHENSIVE METABOLIC PANEL 3. Low hemoglobin - ICD9: 285.9, ICD10: D64.9 Recheck CBC & potassium, iron and A1C as well. - COMPLETE BLOOD COUNT AND DIFFERENTIAL - IRON AND TIBC - HEMOGLOBIN A1C - COMPREHENSIVE METABOLIC PANEL 4. Anemia, unspecified type - ICD9: 285.9, ICD10: D64.9 Recheck CBC & potassium, iron and A1C as well. - COMPLETE BLOOD COUNT AND DIFFERENTIAL - IRON AND TIBC - HEMOGLOBIN A1C - COMPREHENSIVE METABOLIC PANEL 5. Elevated hemoglobin A1c - ICD9: 790.29, ICD10: R73.09 Recheck CBC & potassium, iron and A1C as well. - COMPLETE BLOOD COUNT AND DIFFERENTIAL - HEMOGLOBIN A1C - COMPREHENSIVE METABOLIC PANEL Xochilt Gaston APRN.MANAGER CLINICAL RESEARCH documented in this encounter [facility] 05-20-2024 Instructions Clayton Granados APRN.MANAGER CLINICAL RESEARCH - 05/20/2024 9:38 PM EST TREATMENT PLAN: Discontinue Lamictal and Trazodone and patient stopped taking them due to reporting lack of efficacy. Complete monitoring lab work and EKG due to the risk of side effects due to fdc use of the combination of medication prescribed for the patient. Continue Zyprexa at the same dose of 20 mg to address mood disorder symptoms. Continue Lexapro at the same dose of 40 mg to help with anxiety symptoms. Continue Prazosin at the same dose of 2 mg at bedtime to help with nightmares. Follow up appointment to be scheduled after reviewing lab and EKG results due to risk of increasing side effects if medications were adjusted without ensuring safety of the current medication combination. For those experiencing a suicidal crisis: --call the National Suicide Prevention Lifeline at 987 (111-191-4409) --text the Crisis Text Line (text HOME to 687491) --call 674 and let them know you are having a mental health crisis or go to your nearest Emergency Room for stabilization. --You can also call Mobile Crisis at [phone]. -- You may call the department appointment line at [phone] to schedule your appointment. -- Please call my nurse at [phone] or send me a message in [employer] with any questions or concerns between appointments. documented in this encounter [facility] 05-18-2024 History of Present illness Narrative Images from the original note were not included. FOLLOW UP - PSYCHIATRIC PROGRESS NOTE PATIENT: Daly Estrella Lover DATE: May 18, 2024 Visit Type: Virtual Visit utilizing two-way audio and video for [...] visit. Either the patient or their legal contact representative has been informed of the risks and benefits of -- and alternatives to -- treatment through a remote evaluation and consents to proceed with the evaluation remotely. All information is from Patient report except when noted. This evaluation is NOT intended for forensic, disability or child custody purposes. CC: Presenting today for follow up regarding psychiatric medication management. HPI: Treatment Plan from Last Visit on 09/02/2023: TREATMENT PLAN: 1. Encouraged patient to complete fasting monitoring lab work and EKG for monitoring purposes. Discussed the importance of completing this at her earliest availability due to leather shaver side effect profile of her current medications. 2. Continue her psychiatric medications at the same dose. 3. Inquired about completing a scheduled urine tox screen due to desire to restart xanax. Discussed that she may be contacted for a random urine tox screen due to history of multiple concerning urine lab work. Last urine lab work was positive for non prescription amphetamine. Today Daly shares that she is still staying with a friend. Tried one job but she was experiencing panic attacks and could not continue the job. She cannot identify particular trigger to the panic attacks. Experienced panic attacks at home and when she is out side the home. Experiences them a couple times a week. Right now notices these when she has to go to the store. They will last a couple hours at a time. Reports worsening of panic symptoms 2 months ago. Has not been taking the Lamictal. [place] that she forgot to take it and didn't notice a difference. Has not taken it for 2 months. Patient verbalizes being unsure if the increase in panic symptoms are related to the patient abruptly stopping the Lamictal 2 months ago. Stopped taking the Trazodone a month ago as she felt that it was not helping her. Takes the minipress at night to help with the nightmares. Has been struggling to fall asleep. Tries to sleep but unable to fall asleep until 5 am. Wakes up around 2 pm in the afternoon. Even if she wakes up earlier, she has a hard time falling asleep at night. I just toss and turn and I can't shut my brain off. Struggles with racing thoughts and intrusive thoughts. Takes Lexapro at 8 pm along with the Zyprexa and Prazosin at night. Feels groggy in the morning when she wakes up. Denies using any substances currently, especially Marijuana. Requested wanted to complete a urine tox screen as previous urine tox screen have shown the presence of marijuana use. Wanting to treat sleep issues with Ambien or a benzo. Discussed the risks of reliance on these substance for sleep as well as due to patient's history of excessive alcohol use and marijuana use. Fasting lab work was ordered multiple times in the past due to patient taking a high dose of Zyprexa. Patient did not complete that lab work. The importance of monitoring labs as well as EKG on the combination of medications the patient is taking was discussed with her in detail. Interval Progress: Worse PATIENT DATA: Generalized Anxiety Disorder Scale (ELIJAH-7) 01/17/2024 03/03/2024 05/11/2024 ELIJAH - 7 SCORES Score 14 14 16 (0-4) minimal anxiety, (5-9) mild anxiety, (10-14) moderate anxiety, (15-21) severe anxiety Patient Health Questionnaire (PHQ-9) 01/17/2024 03/03/2024 05/11/2024 PHQ-9 Score 18 18 19 (0-4) minimal depression, (5-9) mild depression, (10-14) moderate depression, (15-19) moderately severe depression, (20-27) severe depression PAST MEDICAL HISTORY Diagnosis Date Attempted suicide (HCC) polysubstance Bipolar depression (HCC) [facility] Gestational diabetes mellitus in Impaired fasting blood sugar 06/2015 a1c 5.7% at diagnosis Iron deficiency anemia Vitamin D deficiency PAST SURGICAL HISTORY Procedure Laterality Date CARPAL TUNNEL bilateral DELIVERY ONLY 08/05/12 LAPAROSCOPY SURG CHOLECYSTECTOMY 07/01/2018 Cholecystectomy, lap ALLERGIES No Known Allergies Current Outpatient Medications on File Prior to Visit Medication Sig escitalopram oxalate (LEXAPRO) 20 mg tablet Take 2 tablets by mouth once daily. OLANZapine (ZYPREXA) 20 mg tablet Take 1 tablet by mouth daily at bedtime. norgestimate 0.25 mg-ethinyl estradiol 35 mcg (SPRINTEC) 0.25-35 mg-mcg per tablet Take 1 tablet by mouth once daily. Okay to skip placebo week and start on next package omeprazole (PRILOSEC) 40 mg capsule Take 1 capsule by mouth once daily. lamoTRIgine (LAMICTAL) 150 mg tablet Take 1 tablet by mouth once daily. ibuprofen (MOTRIN) 800 mg tablet Take 1 tablet by mouth every 8 hours as needed for pain. Take with food. ferrous gluconate 324 mg (37.5 mg iron) tablet Take 1 tablet by mouth twice daily with meals. Ascorbic Acid (VITAMIN C) 1,000 mg tablet Take 1 tablet by mouth once daily. diclofenac (VOLTAREN ARTHRITIS PAIN) 1 % topical gel Apply 2 g to affected area twice daily as needed (joint pain hand or knee). Cholecalciferol, Vitamin D3, (VITAMIN D-3) 50 mcg (2,000 unit) cap Take 1 capsule by mouth once daily. No current facility-administered medications on file prior to visit. ROS: See HPI PFSH: See HPI VITAL SIGNS: There were no vitals filed for this visit. Last 3 Encounter BP Readings: Date: BP: 03/29/2022 120/60 02/02/2022 100/70 10/23/2021 122/82 MENTAL STATUS EXAMINATION: Appearance: Casually dressed and groomed Behavior: Behaves irritable and blunted Social relatedness: anxious and irritable. Speech/Language: The patient demonstrates appropriate tone, prosody, oneal, phonetics, and syntax Mood: anxious Affect: Flat and blunted Orientation: Person, Place, Time and Situation Associations: Intact and linear Hallucinations: None Delusions: None Suicidal Ideation: No suicidal ideation, intent or plan. Homicidal Ideation: No homicidal ideation, intent or plan. Insight: Appropriate Judgment: Appropriate DATA REVIEWED: Psychiatric scales, Electronic medical record, Labs, The PDMP report was reviewed and found to be appropriate without any signs of misuse or diversion. DIAGNOSIS: Elijah (generalized anxiety disorder) (primary encounter diagnosis) Panic attacks Insomnia due to other mental disorder Bipolar ii disorder (hcc) Encounter for long-term (current) use of medications History of marijuana use Psychosocial stressors GAF: -50-41 Serious symptoms or any serious impairment in social, occupational or school functioning. TREATMENT PLAN: Discontinue Lamictal and Trazodone and patient stopped taking them due to reporting lack of efficacy. Complete monitoring lab work and EKG due to the risk of side effects due to leather shaver use of the combination of medication prescribed for the patient. Continue Zyprexa at the same dose of 20 mg to address mood disorder symptoms. Continue Lexapro at the same dose of 40 mg to help with anxiety symptoms. Continue Prazosin at the same dose of 2 mg at bedtime to help with nightmares. Follow up appointment to be scheduled after reviewing lab and EKG results due to risk of increasing side effects if medications were adjusted without ensuring safety of the current medication combination. MEDICATION CHANGES: See above Risks and benefits of the medication, including any black box warnings, were discussed with the patient. Patient is aware to reach out with any questions, concerns, or worsening of symptoms prior to the next appointment. Patient educated on risks of substance use in combination with medications and advised that any substance use along with medications may alter their effectiveness. Follow Up: See Treatment Plan I spent a total of 50 minutes on the date of the service which included preparing to see the patient, [id number] patient care, completing clinical documentation, and counseling and educating the patient/family/caregiver, ordering medications/labs. ADD ON PSYCHOTHERAPY CODE : No SIGNATURE: Clayton Granados APRN.CNP PATIENT NAME: Daly Evans DATE: May 18, 2024 TIME: 2:07 PM documented in this encounter [facility] 03-03-2024 History of Present illness Narrative Patient did not log in for their follow up visit with the provider today. documented in this encounter [facility] 01-30-2024 Telephone encounter Note Tried calling patient no answer or vm available, sent mychart message [facility] 01-30-2024 Miscellaneous Notes Tried calling patient no answer or vm available, sent mychart message documented in this encounter [facility] 01-19-2024 History of Present illness Narrative Patient did not attend her follow up appointment with the provider today. She did not answer her phone when she was contacted prior to the appointment time. It appeared that she had confirmed her appointment today. documented in this encounter [facility] 12-30-2023 History of Present illness Narrative Patient sent a mychart requesting to reschedule the appointment right before the visit. Patient has been assisted in rescheduling this visit. documented in this encounter [facility] 12-12-2023 Telephone encounter Note Prescription Refill Information The patient has been identified by name and date of : Yes Caregiver verified no other encounters exist for this prescription request: Yes Caregiver confirmed with patient/requestor that no other refills are due, in the near future, with this provider at this time: Yes The last office visit in the department: 06/30/23 Does the patient have a future office visit with this provider/department: NO Requested Prescriptions Pending Prescriptions Disp Refills norgestimate 0.25 mg-ethinyl estradiol 35 mcg (SPRINTEC) 0.25-35 mg-mcg per tablet 112 tablet 3 Sig: Take 1 tablet by mouth once daily. Okay to skip placebo week and start on next package Raegan Caba MA December 12, 2023 8:34 AM [facility] 12-12-2023 Telephone encounter Note See refill encounter [facility] 12-12-2023 Miscellaneous Notes See refill encounter documented in this encounter [facility] 12-12-2023 Miscellaneous Notes Prescription Refill Information The patient has been identified by name and date of : Yes Caregiver verified no other encounters exist for this prescription request: Yes Caregiver confirmed with patient/requestor that no other refills are due, in the near future, with this provider at this time: Yes The last office visit in the department: 06/30/23 Does the patient have a future office visit with this provider/department: NO Requested Prescriptions Pending Prescriptions Disp Refills norgestimate 0.25 mg-ethinyl estradiol 35 mcg (SPRINTEC) 0.25-35 mg-mcg per tablet 112 tablet 3 Sig: Take 1 tablet by mouth once daily. Okay to skip placebo week and start on next package Raegan Caba MA December 12, 2023 8:34 AM documented in this encounter [facility] 09-27-2023 Miscellaneous Notes Patient has been identified by name and date of : Yes Patient phones for refill(s): Requested Prescriptions Pending Prescriptions Disp Refills omeprazole (PRILOSEC) 40 mg capsule 30 capsule 11 Sig: Take 1 capsule by mouth once daily. Date of last office visit in primary care: 03/29/2022 ( in person); 06/30/23 (virtual) Date of next office visit in primary care: 10/28/2023 Please advise. Thank you. Satish Baez LPN. documented in this encounter [facility] 09-02-2023 History of Present illness Narrative FOLLOW UP - PSYCHIATRIC PROGRESS [...] visit. Either the patient or their legal contact representative has been informed of the risks and benefits of -- and alternatives to -- treatment through a remote evaluation and consents to proceed with the evaluation remotely. Reason for Visit: Outpatient follow-up and safety monitoring of previously prescribed psychiatric medication, psychotherapy or other treatment CC: Follow up regarding psychiatric medication management HPI: Treatment plan from last visit on 07/08/2023: 1. Complete EKG and fasting monitoring lab work. 2. Consider increase in Trazodone after reviewing EKG and lab work. 3. Continue Zyprexa, Trazodone, Lexapro, and Lamictal at the same dose. 4. Schedule an appointment for individual psychotherapy. Today Daly shares that I am a mess. She has been trying to find a new job. She got sick with Flu and had to take 3 weeks off her job at [employer]. She is not having any luck in finding a job. The background check tends to be a barrier. She had tried to reach out to some [employer] agency. 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 She continues to stay with a friend. Patient has not completed her monitoring lab work as ordered. Patient has not completed the EKG yet. Shares that she will complete it next week. Aware lab work is fasting. Has been struggling with more anxiety. She says that she is not using marijuana currently. Requested another urine tox screen. Since last one tested positive for unprescribed amphetamines, we discussed the next one being a random urine. She struggles with her mind racing at night with worrying thoughts. Takes the Zyprexa at night. Has been able to stay asleep. Gets about 8 hours of sleep. Struggles with initiating sleep. Takes 1 to 3 hours to sleep. Has been drinking about 1 liter of pepsi a day. Last pepsi is around 7 pm, Discussed an earlier cut off time for Caffeine. She continues to use nicotine in vape form. Has not increased use with increased stress. Describes that appetite is normal. Denies binge eating episodes. Denies concerns with physical health. Minipress continues to help with patient's nightmares. Denies side effects from current medications. Denies involuntary movement related side effects. Risks and benefits of the medication, including any black box warnings, were discussed with the patient. Interval Progress: Same PATIENT DATA: Generalized Anxiety Disorder Scale (ELIJAH-7) ELIJAH - 7 SCORES 05/16/2023 07/07/2023 09/01/2023 ELIJAH-7 Score 18 17 14 (0-4) minimal anxiety, (5-9) mild anxiety, (10-14) moderate anxiety, (15-21) severe anxiety Patient Health Questionnaire (PHQ-9) PHQ-9 05/16/2023 07/07/2023 09/01/2023 Score 21 21 23 (0-4) minimal depression, (5-9) mild depression, (10-14) moderate depression, (15-19) moderately severe depression, (20-27) severe depression PROMIS Global Health PROMIS Global Health - (T-Scores - the mean of general population = 50. Five points is a clinically meaningful difference.) 01/05/2023 04/17/2023 06/30/2023 Physical T-Score 37.4 37.4 37.4 Mental T-Score [...] mouth daily at bedtime. 30 tablet 2 escitalopram oxalate (LEXAPRO) 20 mg tablet Take 2 tablets by mouth once daily. 180 tablet 0 lamoTRIgine (LAMICTAL) 150 mg tablet Take 1 tablet by mouth once daily. 90 tablet 0 norgestimate 0.25 mg-ethinyl estradiol 35 mcg (SPRINTEC) [...] intact, Immediate intact CONCENTRATION: Normal MOOD: sad depressed AFFECT: Full and appropriate to topic SPEECH : Clear & distinct LANGUAGE : Normal ASSOCIATIONS: Intact THOUGHT PROCESS : Logical, Coherent, and Rational PROGRESSION : There was no evidence of disturbance in thought perception or progression. FUND OF KNOWLEDGE : Appropriate and Adequate SUICIDE: None HOMICIDE: None DATA REVIEWED: Psychiatric scales and Electronic medical record DIAGNOSIS: Bipolar 2 disorder Panic disorder without agoraphobia History of Marijuana use Generalized Anxiety Disorder GAF: -60-51 Moderate symptoms or moderate difficulty in social, occupational or school functioning. TREATMENT PLAN: 1. Encouraged patient to complete fasting monitoring lab work and EKG for monitoring purposes. Discussed the importance of completing this at her earliest availability due to leather shaver side effect profile of her current medications. 2. Continue her psychiatric medications at the same dose. 3. Inquired about completing a scheduled urine tox screen due to desire to restart xanax. Discussed that she may be contacted for a random urine tox screen due to history of multiple concerning urine lab work. Last urine lab work was positive for non prescription amphetamine. MEDICATION CHANGES: Current medication regimen unchanged. - Reviewed Lamictal titration & risk of severe rash. Instructed to call SILVESTRE if this occurs. - Patient denies any involuntary movement related side effects. Follow Up: After completing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 tox on 11/04/2017 documented as of this encounter (statuses as of 02/02/2022) [facility] of Past illness Narrative* Problem Noted Date Resolved Date 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 Overview: + urine tox on 11/04/2017 documented as of this encounter (statuses as of 02/12/2022) [address]2018 History of Past illness Narrative* Problem Noted Date Resolved Date 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 Overview: + urine tox on 11/04/2017 documented as of this encounter (statuses as of 03/09/2022) [facility] of Past [facility] Narrative* Problem Noted Date Resolved Date 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 Overview: + urine tox on 11/04/2017 documented as of this encounter (statuses as of 03/29/2022) [facility] History of Past illness Narrative* Problem Noted Date Resolved Date 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 Overview: + urine tox on 11/04/2017 documented as of this encounter (statuses as of 04/09/2022) [address]2018 History of Past illness Narrative* Problem Noted Date Resolved Date 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 Overview: + urine tox on 11/04/2017 documented as of this encounter (statuses as of 05/10/2022) [address]2018 History of Past illness Narrative* Problem Noted Date Resolved Date 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 Overview: + urine tox on 11/04/2017 documented as of this encounter (statuses as of 05/10/2022) [address]2018 History of Past illness Narrative* Problem Noted Date Resolved Date 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 Overview: + urine tox on 11/04/2017 documented as of this encounter (statuses as of 05/11/2022) [facility] Past [facility] Narrative* Problem Noted Date Resolved Date 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 Overview: + urine tox on 11/04/2017 documented as of this encounter (statuses as of 05/24/2022) [address]2018 History of Past illness Narrative* Problem Noted Date Resolved Date 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 Overview: + urine tox on 11/04/2017 documented as of this encounter (statuses as of 06/06/2022) [facility] Narrative* Problem Noted Date Resolved Date 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 Overview: + urine tox on 11/04/2017 documented as of this encounter (statuses as of 07/02/2022) [address]2018 History of Past illness Narrative* Problem Noted Date Resolved Date 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 Overview: + urine tox on 11/04/2017 documented as of this encounter (statuses as of 07/06/2022) [address]2018 History of Past illness Narrative* Problem Noted Date Resolved Date 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 Overview: + urine tox on 11/04/2017 documented as of this encounter (statuses as of 07/26/2022) [address]2018 History of Past illness Narrative* Problem Noted Date Resolved Date 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 Overview: + urine tox on 11/04/2017 documented as of this encounter (statuses as of 08/09/2022) [facility] Past [facility] Narrative* Problem Noted Date Resolved Date 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 Overview: + urine tox on 11/04/2017 documented as of this encounter (statuses as of 08/24/2022) [facility] Past [facility] Narrative* Problem Noted Date Resolved Date 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 Overview: + urine tox on 11/04/2017 documented as of this encounter (statuses as of 09/13/2022) [facility] Narrative* Problem Noted Date Resolved Date 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 Overview: + urine tox on 11/04/2017 documented as of this encounter (statuses as of 09/30/2022) [facility] of Past [facility] Narrative* Problem Noted Date Resolved Date 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 Overview: + urine tox on 11/04/2017 documented as of this encounter (statuses as of 10/01/2022) [facility] Past [facility] Narrative* Problem Noted Date Resolved Date 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 Overview: + urine tox on 11/04/2017 documented as of this encounter (statuses as of 10/04/2022) [facility] Narrative* Problem Noted Date Resolved Date 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 Overview: + urine tox on 11/04/2017 documented as of this encounter (statuses as of 10/29/2022) [facility] of Past illness Narrative* Problem Noted Date Resolved Date 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 Overview: + urine tox on 11/04/2017 documented as of this encounter (statuses as of 12/24/2022) [facility] of [facility] Narrative* Problem Noted Date Diagnosed Date Resolved Date 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2018 Overview: + urine tox on 11/04/2017 documented as of this encounter (statuses as of 01/03/2023) [facility] Narrative* Problem Noted Date Diagnosed Date Resolved Date 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2018 Overview: + urine tox on 11/04/2017 documented as of this encounter (statuses as of 01/04/2023) [facility] Narrative* Problem Noted Date Diagnosed Date Resolved Date 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2018 Overview: + urine tox on 11/04/2017 documented as of this encounter (statuses as of 01/06/2023) [facility] Narrative* Problem Noted Date Diagnosed Date Resolved Date 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2018 Overview: + urine tox on 11/04/2017 documented as of this encounter (statuses as of 02/25/2023) [facility] Narrative* Problem Noted Date Diagnosed Date Resolved Date 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2018 Overview: + urine tox on 11/04/2017 documented as of this encounter (statuses as of 03/15/2023) [facility] of Past illness Narrative* Problem Noted Date Diagnosed Date Resolved Date 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2018 Overview: + urine tox on 11/04/2017 documented as of this encounter (statuses as of 03/15/2023) [address] History of Past illness Narrative* Problem Noted Date Diagnosed Date Resolved Date 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2018 Overview: + urine tox on 11/04/2017 documented as of this encounter (statuses as of 04/22/2023) [address]2018 History of Past illness Narrative* Problem Noted Date Diagnosed Date Resolved Date 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2018 Overview: + urine tox on 11/04/2017 documented as of this encounter (statuses as of 05/17/2023) [facility] of Past illness Narrative* Problem Noted Date Diagnosed Date Resolved Date 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2018 Overview: + urine tox on 11/04/2017 documented as of this encounter (statuses as of 05/24/2023) [address]2018 History of Past illness Narrative* Problem Noted Date Diagnosed Date Resolved Date 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2018 Overview: + urine tox on 11/04/2017 documented as of this encounter (statuses as of 2023) [address]2018 History of Past illness Narrative* Problem Noted Date Diagnosed Date Resolved Date 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2018 Overview: + urine tox on 11/04/2017 documented as of this encounter (statuses as of 09/28/2023) [facility] Diagnosis Panic attacks Panic disorder without agoraphobia [facility] Diagnosis Bipolar affective disorder, current episode mixed, current episode severity unspecified (HCC)- Primary Alcohol abuse Alcohol abuse, unspecified Depressive disorder Depressive disorder, not elsewhere classified Panic attacks Panic disorder without agoraphobia ADD (attention deficit disorder) without hyperactivity Attention deficit disorder without mention of hyperactivity Legal intervention, bystander injured, initial encounter [facility] Diagnosis ELIJAH (generalized anxiety disorder)- Primary Generalized anxiety disorder Bipolar 2 disorder (HCC) Other bipolar disorders documented in this encounter [facility] note* Diagnosis ADD (attention deficit disorder) without hyperactivity Attention deficit disorder without mention of hyperactivity [facility] Diagnosis Iron deficiency anemia, unspecified iron deficiency anemia type [facility] Diagnosis ELIJAH (generalized anxiety disorder)- Primary Generalized anxiety disorder Bipolar 2 disorder (HCC) Other bipolar disorders [facility] Diagnosis ELIJAH (generalized anxiety disorder) Generalized anxiety disorder [facility] Diagnosis ADD (attention deficit disorder) without hyperactivity Attention deficit disorder without mention of hyperactivity [facility] Diagnosis ELIJAH (generalized anxiety disorder)- Primary Generalized anxiety disorder Bipolar 2 disorder (HCC) Other bipolar disorders Panic disorder without agoraphobia [facility] Diagnosis ELIJAH (generalized anxiety disorder) Generalized anxiety disorder [facility] Diagnosis Bipolar 2 disorder (HCC)- Primary Other bipolar disorders Panic disorder without agoraphobia [facility] Diagnosis Bilateral hand pain- Primary Pain in limb Foot pain, bilateral Pain in limb Fatigue, unspecified type Myalgia Mylagia and myositis, unspecified Multiple joint pain Pain in joint, multiple sites Iron deficiency Iron deficiency anemia, unspecified [facility] Diagnosis ELIJAH (generalized anxiety disorder) Generalized anxiety disorder [facility] Diagnosis Panic disorder without agoraphobia- Primary Bipolar 2 disorder (HCC) Other bipolar disorders documented in this encounter [facility] note* Diagnosis Bilateral hand pain- Primary Pain in limb Elevated C-reactive protein (CRP) Bipolar affective disorder, current episode mixed, current episode severity unspecified (HCC) documented in this encounter [facility] note* Diagnosis NO SHOW- Primary documented in this encounter [facility] note* Diagnosis Muscle spasm of back Other symptoms referable to back Acute bilateral thoracic back pain [facility] Diagnosis Encounter for long-term (current) use of medications- Primary Encounter for long-term (current) use of other medications Panic disorder without agoraphobia Bipolar 2 disorder (HCC) Other bipolar disorders documented in this encounter [facility] note* Diagnosis GERD without esophagitis Esophageal reflux documented in this encounter [facility] note* Diagnosis Marijuana use- Primary Cannabis abuse, unspecified documented in this encounter [facility] note* Diagnosis Panic disorder without agoraphobia- Primary Bipolar 2 disorder (HCC) Other bipolar disorders Marijuana use Cannabis abuse, unspecified documented in this encounter [facility] note* Diagnosis NO SHOW- Primary documented in this encounter [facility] note* Diagnosis Bipolar II disorder (HCC)- Primary Other bipolar disorders documented in this encounter [facility] note* Diagnosis Bipolar 2 disorder (HCC)- Primary Other bipolar disorders Panic disorder without agoraphobia Marijuana use Cannabis abuse, unspecified documented in this encounter [facility] note* Diagnosis History of marijuana use- Primary Bipolar II disorder (HCC) Other bipolar disorders Panic disorder without agoraphobia documented in this encounter [facility] note* Diagnosis Encounter for long-term (current) use of medications- Primary Encounter for long-term (current) use of other medications ELIJAH (generalized anxiety disorder) Generalized anxiety disorder Panic attacks Panic disorder without agoraphobia Bipolar affective disorder, current episode mixed, current episode severity unspecified (HCC) documented in this encounter [facility] note* Diagnosis ELIJAH (generalized anxiety disorder)- Primary Generalized anxiety disorder Panic attacks Panic disorder without agoraphobia Bipolar II disorder (HCC) Other bipolar disorders Occasional use of marijuana documented in this encounter [facility] note* Diagnosis Encounter for long-term (current) use of medications- Primary Encounter for long-term (current) use of other medications ELIJAH (generalized anxiety disorder) Generalized anxiety disorder Bipolar II disorder (HCC) Other bipolar disorders Panic disorder without agoraphobia documented in this encounter [facility] note* Diagnosis Bipolar II disorder (HCC)- Primary Other bipolar disorders Encounter for long-term (current) use of medications Encounter for long-term (current) use of other medications Panic disorder without agoraphobia History of marijuana use ELIJAH (generalized anxiety disorder) Generalized anxiety disorder documented in this encounter [facility] note* Diagnosis GERD without esophagitis Esophageal reflux documented in this encounter [facility] note* Diagnosis Encounter for screening mammogram for breast cancer documented in this encounter [facility] note* Diagnosis APPOINTMENT CANCELLED- Primary documented in this encounter [facility] note* Diagnosis NO SHOW- Primary documented in this encounter [facility] note* Diagnosis Acute pain of left [facility] Diagnosis ELIJAH (generalized anxiety disorder)- Primary Generalized anxiety disorder Marijuana use Cannabis abuse, unspecified Panic attacks Panic disorder without agoraphobia [facility] Diagnosis ELIJAH (generalized anxiety disorder)- Primary Generalized anxiety disorder Panic attacks Panic disorder without agoraphobia Insomnia due to other mental disorder Bipolar II disorder (HCC) Other bipolar disorders Encounter for long-term (current) use of medications Encounter for long-term (current) use of other medications History of marijuana use Psychosocial stressors Other psychological or physical stress, not elsewhere classified [facility] Diagnosis Medication management- Primary Encounter for long-term (current) use of other medications Hypokalemia Hypopotassemia Low hemoglobin Anemia, unspecified Anemia, unspecified type Elevated hemoglobin A1c Other abnormal blood chemistry documented in this encounter 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 [facility]* Diagnosis Encounter for post surgical wound check- Primary Encounter for staple removal Encounter for removal of sutures Arterial occlusion Embolism and thrombosis of unspecified artery Acute lower limb ischemia custodial (current) use of aspirin informatica current use of anticoagulant Long-term (current) use of anticoagulants [facility] Diagnosis Aortic thrombus (HCC)- Primary Embolism and thrombosis of thoracic aorta [facility] Diagnosis Abnormal serum protein electrophoresis- Primary Other nonspecific findings on examination of blood Antiphospholipid antibody syndrome (HCC) Primary hypercoagulable state Superior mesenteric artery thrombosis (HCC) Acute vascular insufficiency of intestine [facility] Diagnosis 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 Disorder of artery or arteriole Unspecified disorders of arteries and arterioles [facility] Diagnosis On total parenteral nutrition (TPN)- Primary Other specified conditions influencing health status [facility] Diagnosis 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 [facility] Diagnosis High output ileostomy (HCC)- Primary Other symptoms involving digestive system Sepsis (HCC) JONATAN (acute kidney injury) Acute kidney failure, unspecified Toe gangrene (HCC) Gangrene Soft tissue infection of foot Unspecified local infection of skin and subcutaneous tissue S/P exploratory laparotomy Other postprocedural status Accidental overdose, initial encounter Acute post-operative pain 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 Acute lower limb ischemia Acute mesenteric ischemia (HCC) Acute vascular insufficiency of intestine Anticoagulation management encounter Encounter for therapeutic drug monitoring 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 Arterial occlusion Embolism and thrombosis of unspecified artery Bipolar disorder (HCC) Bipolar disorder, unspecified Electrolyte abnormality Electrolyte and fluid disorders not elsewhere classified Feeding difficulties Feeding difficulties and mismanagement S/P exploratory laparotomy Other postprocedural status Hypercoagulable state (HCC) Primary hypercoagulable state Superior mesenteric artery thrombosis (HCC) Acute vascular insufficiency of intestine Lupus anticoagulant positive Other and unspecified nonspecific immunological findings Foot ulcer, left (HCC) Ulcer of other part of foot Toe gangrene (HCC) Gangrene Jejunostomy malfunction (HCC) Mechanical complication of colostomy and enterostomy Soft tissue infection of foot Unspecified local infection of skin and subcutaneous tissue On total parenteral nutrition (TPN) Other specified conditions influencing health status Low hemoglobin Anemia, unspecified On total parenteral nutrition (TPN)- Primary Other specified conditions influencing health status documented in this encounter 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 Acute lower limb ischemia Acute mesenteric ischemia (HCC) Acute vascular insufficiency of intestine Anticoagulation management encounter Encounter for therapeutic drug monitoring 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 Arterial occlusion Embolism and thrombosis of unspecified artery Bipolar disorder (HCC) Bipolar disorder, unspecified Electrolyte abnormality Electrolyte and fluid disorders not elsewhere classified Feeding difficulties Feeding difficulties and mismanagement S/P exploratory laparotomy Other postprocedural status Hypercoagulable state (HCC) Primary hypercoagulable state Superior mesenteric artery thrombosis (HCC) Acute vascular insufficiency of intestine Lupus anticoagulant positive Other and unspecified nonspecific immunological findings Foot ulcer, left (HCC) Ulcer of other part of foot Toe gangrene (HCC) Gangrene Jejunostomy malfunction (HCC) Mechanical complication of colostomy and enterostomy Soft tissue infection of foot Unspecified local infection of skin and subcutaneous tissue On total parenteral nutrition (TPN) Other specified conditions influencing health status Low hemoglobin Anemia, unspecified S/P exploratory laparotomy- Primary Other postprocedural status [facility] Diagnosis High output ileostomy (HCC)- Primary Other symptoms involving digestive system Sepsis (HCC) JONATAN (acute kidney injury) Acute kidney failure, unspecified Toe gangrene (HCC) Gangrene Soft tissue infection of foot Unspecified local infection of skin and subcutaneous tissue S/P exploratory laparotomy Other postprocedural status Accidental overdose, initial encounter Acute post-operative pain 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 Acute lower limb ischemia Acute mesenteric ischemia (HCC) Acute vascular insufficiency of intestine Anticoagulation management encounter Encounter for therapeutic drug monitoring 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 Arterial occlusion Embolism and thrombosis of unspecified artery Bipolar disorder (HCC) Bipolar disorder, unspecified Electrolyte abnormality Electrolyte and fluid disorders not elsewhere classified Feeding difficulties Feeding difficulties and mismanagement S/P exploratory laparotomy Other postprocedural status Hypercoagulable state (HCC) Primary hypercoagulable state Superior mesenteric artery thrombosis (HCC) Acute vascular insufficiency of intestine Lupus anticoagulant positive Other and unspecified nonspecific immunological findings Foot ulcer, left (HCC) Ulcer of other part of foot Toe gangrene (HCC) Gangrene Jejunostomy malfunction (HCC) Mechanical complication of colostomy and enterostomy Soft tissue infection of foot Unspecified local infection of skin and subcutaneous tissue On total parenteral nutrition (TPN) Other specified conditions influencing health status Low hemoglobin Anemia, unspecified S/P exploratory laparotomy Other postprocedural status [facility] Diagnosis High output ileostomy (HCC)- Primary Other symptoms involving digestive system Sepsis (HCC) JONATAN (acute kidney injury) Acute kidney failure, unspecified Toe gangrene (HCC) Gangrene Soft tissue infection of foot Unspecified local infection of skin and subcutaneous tissue S/P exploratory laparotomy Other postprocedural status Accidental overdose, initial encounter Acute post-operative pain 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 Acute lower limb ischemia Acute mesenteric ischemia (HCC) Acute vascular insufficiency of intestine Anticoagulation management encounter Encounter for therapeutic drug monitoring 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 Arterial occlusion Embolism and thrombosis of unspecified artery Bipolar disorder (HCC) Bipolar disorder, unspecified Electrolyte abnormality Electrolyte and fluid disorders not elsewhere classified Feeding difficulties Feeding difficulties and mismanagement Status post exploratory laparotomy Other postprocedural status Hypercoagulable state (HCC) Primary hypercoagulable state Superior mesenteric artery thrombosis (HCC) Acute vascular insufficiency of intestine Lupus anticoagulant positive Other and unspecified nonspecific immunological findings Foot ulcer, left (HCC) Ulcer of other part of foot Toe gangrene (HCC) Gangrene Jejunostomy malfunction (HCC) Mechanical complication of colostomy and enterostomy Soft tissue infection of foot Unspecified local infection of skin and subcutaneous tissue On total parenteral nutrition (TPN) Other specified conditions influencing health status Low hemoglobin Anemia, unspecified ELIJAH (generalized anxiety disorder)- Primary Generalized anxiety disorder Anxiety about health Bipolar II disorder (HCC) Other bipolar disorders Encounter for long-term (current) use of medications Encounter for long-term (current) use of other medications Insomnia due to other mental disorder [facility] Diagnosis High output ileostomy (HCC)- Primary Other symptoms involving digestive system Sepsis (HCC) JONATAN (acute kidney injury) Acute kidney failure, unspecified Toe gangrene (HCC) Gangrene Soft tissue infection of foot Unspecified local infection of skin and subcutaneous tissue S/P exploratory laparotomy Other postprocedural status Accidental overdose, initial encounter Acute post-operative pain 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 Acute lower limb ischemia Acute mesenteric ischemia (HCC) Acute vascular insufficiency of intestine Anticoagulation management encounter Encounter for therapeutic drug monitoring 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 Arterial occlusion Embolism and thrombosis of unspecified artery Bipolar disorder (HCC) Bipolar disorder, unspecified Electrolyte abnormality Electrolyte and fluid disorders not elsewhere classified Feeding difficulties Feeding difficulties and mismanagement Status post exploratory laparotomy Other postprocedural status Hypercoagulable state (HCC) Primary hypercoagulable state Superior mesenteric artery thrombosis (HCC) Acute vascular insufficiency of intestine Lupus anticoagulant positive Other and unspecified nonspecific immunological findings Foot ulcer, left (HCC) Ulcer of other part of foot Toe gangrene (HCC) Gangrene Jejunostomy malfunction (HCC) Mechanical complication of colostomy and enterostomy Soft tissue infection of foot Unspecified local infection of skin and subcutaneous tissue On total parenteral nutrition (TPN) Other specified conditions influencing health status Low hemoglobin Anemia, unspecified 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 and thrombosis of arteries of lower extremity Pain associated with surgical procedure Removal of gilberto Encounter for removal of sutures Visit for suture removal Encounter for removal of sutures Screening for depression Hypokalemia Hypopotassemia Blood thinned due to long-term anticoagulant use Long-term (current) use of anticoagulants [facility] Diagnosis High output ileostomy (HCC)- Primary Other symptoms involving digestive system Sepsis (HCC) JONATAN (acute kidney injury) Acute kidney failure, unspecified Toe gangrene (HCC) Gangrene Soft tissue infection of foot Unspecified local infection of skin and subcutaneous tissue S/P exploratory laparotomy Other postprocedural status Accidental overdose, initial encounter Acute post-operative pain 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 Acute lower limb ischemia Acute mesenteric ischemia (HCC) Acute vascular insufficiency of intestine Anticoagulation management encounter Encounter for therapeutic drug monitoring 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 Arterial occlusion Embolism and thrombosis of unspecified artery Bipolar disorder (HCC) Bipolar disorder, unspecified Electrolyte abnormality Electrolyte and fluid disorders not elsewhere classified Feeding difficulties Feeding difficulties and mismanagement Status post exploratory laparotomy Other postprocedural status Hypercoagulable state (HCC) Primary hypercoagulable state Superior mesenteric artery thrombosis (HCC) Acute vascular insufficiency of intestine Lupus anticoagulant positive Other and unspecified nonspecific immunological findings Foot ulcer, left (HCC) Ulcer of other part of foot Toe gangrene (HCC) Gangrene Jejunostomy malfunction (HCC) Mechanical complication of colostomy and enterostomy Soft tissue infection of foot Unspecified local infection of skin and subcutaneous tissue On total parenteral nutrition (TPN) Other specified conditions influencing health status Low hemoglobin Anemia, unspecified 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 and thrombosis of arteries of lower extremity [facility] Diagnosis High output ileostomy (HCC)- Primary Other symptoms involving digestive system Sepsis (HCC) JONATAN (acute kidney injury) Acute kidney failure, unspecified Toe gangrene (HCC) Gangrene Soft tissue infection of foot Unspecified local infection of skin and subcutaneous tissue S/P exploratory laparotomy Other postprocedural status Accidental overdose, initial encounter Acute post-operative pain 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 Acute lower limb ischemia Acute mesenteric ischemia (HCC) Acute vascular insufficiency of intestine Anticoagulation management encounter Encounter for therapeutic drug monitoring 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 Arterial occlusion Embolism and thrombosis of unspecified artery Bipolar disorder (HCC) Bipolar disorder, unspecified Electrolyte abnormality Electrolyte and fluid disorders not elsewhere classified Feeding difficulties Feeding difficulties and mismanagement Status post exploratory laparotomy Other postprocedural status Hypercoagulable state (HCC) Primary hypercoagulable state Superior mesenteric artery thrombosis (HCC) Acute vascular insufficiency of intestine Lupus anticoagulant positive Other and unspecified nonspecific immunological findings Foot ulcer, left (HCC) Ulcer of other part of foot Toe gangrene (HCC) Gangrene Jejunostomy malfunction (HCC) Mechanical complication of colostomy and enterostomy Soft tissue infection of foot Unspecified local infection of skin and subcutaneous tissue On total parenteral nutrition (TPN) Other specified conditions influencing health status Low hemoglobin Anemia, unspecified 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 and thrombosis of arteries of lower extremity Anticoagulation management encounter Encounter for therapeutic drug monitoring Short bowel syndrome, 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 Malnutrition of moderate degree (HCC) Malnutrition of moderate degree Hypokalemia Hypopotassemia Anemia, unspecified type PICC (peripherally inserted central catheter) in place Fitting and adjustment of vascular catheter documented in this encounter [facility] for referral (narrative)* Outpatient Procedure (Routine) - Pending Review Specialty Diagnoses / Procedures Referred By Matias t Referred To [facility] Diagnoses ELIJAH (generalized anxiety disorder) Procedures ECG COMPLETE ECG ROUTINE ECG W/LEAST 12 LDS W/I&R Clayton Granados APRN.MANAGER CLINICAL RESEARCH [address] [place] [address] [facility] [address] [place] [id number] Referral ID Status Reason Start Date Expiration Date Visits Requested Visits Authorized [id number] Pending Review Auto-Generat ed Referral 12/24/2021 12/24/2022 1 1 [facility] for referral (narrative)* Diagnostic Procedure Only (Routine) - Pending Review Specialty Diagnoses / Procedures Referred By Contac t Referred To Contact XR IMAGING Diagnoses Foot pain, bilateral Procedures XR FOOT GENERAL 3V AP/LAT/OBL BILATERAL RADEX FOOT COMPLETE MINIMUM 3 VIEWS Fredrick Boland DO [address] [place] [address] [facility] Referral ID Status Reason Start Date Expiration Date Visits Requested Visits Authorized [id number] Pending Review Auto-Generat ed Referral 02/02/2022 03/04/2023 1 1 * Diagnostic Procedure Only (Routine) - Pending Review Specialty Diagnoses / Procedures Referred By Contac t Referred To Contact [facility]R IMAG[facility] Diagnoses Bilateral hand pain Procedures XR HAND GENERAL 3V PA/LAT/OBL BILATERAL RADEX HAND MINIMUM 3 VIEWS Fredrick Boland DO [address] [place] [address] [facility] Referral ID Status Reason Start Date Expiration Date Visits Requested Visits Authorized [id number] Pending Review Auto-Generat ed Referral 02/02/2022 03/04/2023 1 1 [facility] for referral (narrative)* Outpatient Procedure (Routine) - Pending Review Specialty Diagnoses / Procedures Referred By Contac t Referred To [facility] Diagnoses Encounter for long-term (current) use of medications Procedures ECG COMPLETE ECG ROUTINE ECG W/LEAST 12 LDS W/I&R Clayton Granados, ALARM SIGNALER.MANAGER CLINICAL RESEARCH [address] [place] [address] [facility] [address] [place] [address] Referral ID Status Reason Start Date Expiration Date Visits Requested Visits Authorized [id number] Pending Review Auto-Generat ed Referral 03/14/2023 03/13/2024 1 1 [facility] for referral (narrative)* Diagnostic Procedure Only (Routine) - Pending Review Specialty Diagnoses / Procedures Referred By Matias t Referred To Contact [facility] Diagnoses Encounter for screening mammogram for breast cancer Procedures MILO SCREENING SCREENING MAMMOGRAPHY BI 2-VIEW BREAST INC CAD Fredrick Boland DO [address] [place] [address] [facility] [address] [place] [address] Referral ID Status Reason Start Date Expiration Date Visits Requested Visits Authorized [id number] Pending Review Auto-Generat ed Referral 10/19/2023 11/17/2024 1 1 [facility] for referral (narrative)* Diagnostic Procedure Only (Routine) - Closed Specialty Diagnoses / Procedures Referred By Matias vaughan Referred To Contact XR IMAGING Diagnoses Acute pain of left knee Procedures XR KNEE GENERAL 4V AP BOTH/PA BOTH/LAT/MERC LT KNEE AP-WGT/LAT/MERCHANT Herbert Izquierdo MD [address] [place] [address] [place] [id number] Referral ID Status Reason Start Date Expiration Date V isits Requested Visits Authorized [id number] Closed Auto-Generate d Referral 03/12/2021 04/11/2022 1 1 [facility] for referral (narrative)* Outpatient Procedure (Routine) - New Request Specialty Diagnoses / Procedures Referred By Matias vaughan Referred To [facility] Diagnoses Encounter for long-term (current) use of medications Procedures ECG COMPLETE ECG ROUTINE ECG W/LEAST 12 LDS W/I&R Clayton Granados ALARM SIGNALER.MANAGER CLINICAL RESEARCH [address] [place] [address] [facility] [address] [place] [id number] Referral ID Status Reason Start Date Expiration Date Visits Requested Visits Authorized [id number] New Request Auto-Generat ed Referral 05/18/2025 1 1 [facility] for visit Narrative* Diagnostic Procedure Only (Routine) - Closed Specialty Diagnoses / Procedures Referred By Matias vaughan Referred To Contact XR IMAGING Diagnoses Acute pain of left knee Procedures XR KNEE GENERAL 4V AP BOTH/PA BOTH/LAT/MERC LT KNEE AP-WGT/LAT/MERCHANT Herbert Izquierdo MD [address] [facility] [place] [address] [place] [id number] Referral ID Status Reason Start Date Expiration Date V isits Requested Visits Authorized Closed Auto-Generate d Referral 03/12/2021 04/11/2022 1 1 [facility] Summary Purpose Family History No Family History Records FoundNo Family History Records FoundNo Family History Records FoundNo Family History Records FoundNo Family History Records FoundNo Family History Records FoundNo Family History Records FoundNo Family History Records FoundNo Family History Records FoundNo Family History Records FoundNo Family History Records Found Advance Directives No Advanced Directives Records Found Date Activated Date Inactivated Comments 11/28/2024 9:15 PM 12/21/2024 6:22 PM Question Answer Comments Full Code Order Discussed With: Patient Date Activated Date Inactivated Comments 10/19/2024 11:19 PM 10/26/2024 8:35 PM Question Answer Comments Full Code Order Discussed With: Patient Date Activated Date Inactivated Comments 10/09/2024 5:01 PM 10/12/2024 4:47 PM Question Answer Comments Full Code Order Discussed With: Patient Date Activated Date Inactivated Comments 08/20/2024 9:20 AM 09/03/2024 11:44 PM Question Answer Comments Full Code Order Discussed With: Patient Date Activated Date Inactivated Comments 11/28/2024 9:15 PM Date Activated Date Inactivated Comments 10/19/2024 11:19 PM 10/26/2024 8:35 PM Date Activated Date Inactivated Comments 10/09/2024 5:01 PM 10/12/2024 4:47 PM Date Activated Date Inactivated Comments 08/20/2024 9:20 AM 09/03/2024 11:44 PM Date Activated Date Inactivated Comments 10/09/2024 5:01 PM Date Activated Date Inactivated Comments 08/20/2024 9:20 AM 09/03/2024 11:44 PM Date Activated Date Inactivated Comments 08/20/2024 9:20 AM 09/03/2024 11:44 PM Documents on File Type Date Recorded Patient Computer Project Manager Expl anation Advance Directive(s) 10/10/2021 1:22 AM Documents on File Type Date Recorded Patient Computer Project Manager Expl anation Advance Directive(s) 10/10/2021 1:22 AM Date Activated Date Inactivated Comments 08/20/2024 9:20 AM Date Activated Date Inactivated Comments 08/20/2024 9:20 AM 09/03/2024 11:44 PM Question Answer Comments Full Code Order Discussed With: Patient Date Activated Date Inactivated Comments 10/09/2024 5:01 PM Date Activated Date Inactivated Comments 08/20/2024 9:20 AM 09/03/2024 11:44 PM Question Answer Comments Full Code Order Discussed With: Patient Date Activated Date Inactivated Comments 11/28/2024 9:15 PM 12/21/2024 6:22 PM Date Activated Date Inactivated Comments 10/19/2024 11:19 PM 10/26/2024 8:35 PM Date Activated Date Inactivated Comments 10/09/2024 5:01 PM 10/12/2024 4:47 PM Question Answer Comments Full Code Order Discussed With: Patient Date Activated Date Inactivated Comments 08/20/2024 9:20 AM 09/03/2024 11:44 PM Question Answer Comments Full Code Order Discussed With: Patient Additional Source Comments INFORMATION SOURCE (unrecogn ized section and content) DATE CREATED AUTHOR 01/07/2018 [facility] DATE CREATED AUTHOR AUTHOR'S ORGANIZ ATION 06/13/2018 [facility] DATE CREATED AUTHOR AUTHOR'S ORGANIZ ATION 05/30/2021 [facility] DATE CREATED AUTHOR AUTHOR'S ORGANIZ ATION 10/07/2022 [facility] DATE CREATED AUTHOR AUTHOR'S ORGANIZ ATION 10/07/2022 [facility] DATE CREATED AUTHOR AUTHOR'S ORGANIZ ATION 12/08/2022 [facility] DATE CREATED AUTHOR AUTHOR'S ORGANIZ ATION 09/30/2024 [facility] DATE CREATED AUTHOR AUTHOR'S ORGANIZ ATION 10/30/2024 [facility] DATE CREATED AUTHOR AUTHOR'S ORGANIZ ATION 11/04/2024 [facility] DATE CREATED AUTHOR AUTHOR'S ORGANIZ ATION 02/02/2025 [facility] DATE CREATED AUTHOR AUTHOR'S ORGANIZ ATION 02/04/2025 [facility] Source Comments (unrecognize d section and content) In the event this informatio n is protected by the Federal Confidentiality of Alcohol and Drug Abuse Patient Records regulations: The Federal rules restrict any use of the information to criminally investigate or prosecute any alcohol or drug abuse patient.[facility] the event this information is protected by the Federal Confidentiality of Alcohol and Drug Abuse Patient Records regulations: The Federal rules restrict any use of the information to criminally investigate or prosecute any alcohol or drug abuse patient.[facility] HospitalIn the event this information is protected by the Federal Confidentiality of Alcohol and Drug Abuse Patient Records regulations: The Federal rules restrict any use of the information to criminally investigate or prosecute any alcohol or drug abuse patient.[facility] HospitalIn the event this information is protected by the Federal Confidentiality of Alcohol and Drug Abuse Patient Records regulations: The Federal rules restrict any use of the information to criminally investigate or prosecute any alcohol or drug abuse patient.[facility] HospitalIn the event this information is protected by the Federal Confidentiality of Alcohol and Drug Abuse Patient Records regulations: The Federal rules restrict any use of the information to criminally investigate or prosecute any alcohol or drug abuse patient.[facility] HospitalIn the event this information is protected by the Federal Confidentiality of Alcohol and Drug Abuse Patient Records regulations: The Federal rules restrict any use of the information to criminally investigate or prosecute any alcohol or drug abuse patient.[facility] HospitalIn the event this information is protected by the Federal Confidentiality of Alcohol and Drug Abuse Patient Records regulations: The Federal rules restrict any use of the information to criminally investigate or prosecute any alcohol or drug abuse patient.[facility] HospitalIn the event this information is protected by the Federal Confidentiality of Alcohol and Drug Abuse Patient Records regulations: The Federal rules restrict any use of the information to criminally investigate or prosecute any alcohol or drug abuse patient.[facility] HospitalIn the event this information is protected by the Federal Confidentiality of Alcohol and Drug Abuse Patient Records regulations: The Federal rules restrict any use of the information to criminally investigate or prosecute any alcohol or drug abuse patient.[facility] HospitalIn the event this information is protected by the Federal Confidentiality of Alcohol and Drug Abuse Patient Records regulations: The Federal rules restrict any use of the information to criminally investigate or prosecute any alcohol or drug abuse patient.[facility] HospitalIn the event this information is protected by the Federal Confidentiality of Alcohol and Drug Abuse Patient Records regulations: The Federal rules restrict any use of the information to criminally investigate or prosecute any alcohol or drug abuse patient.[facility] HospitalIn the event this information is protected by the Federal Confidentiality of Alcohol and Drug Abuse Patient Records regulations: The Federal rules restrict any use of the information to criminally investigate or prosecute any alcohol or drug abuse patient.[facility] HospitalIn the event this information is protected by the Federal Confidentiality of Alcohol and Drug Abuse Patient Records regulations: The Federal rules restrict any use of the information to criminally investigate or prosecute any alcohol or drug abuse patient.[facility] HospitalIn the event this information is protected by the Federal Confidentiality of Alcohol and Drug Abuse Patient Records regulations: The Federal rules restrict any use of the information to criminally investigate or prosecute any alcohol or drug abuse patient.[facility] HospitalIn the event this information is protected by the Federal Confidentiality of Alcohol and Drug Abuse Patient Records regulations: The Federal rules restrict any use of the information to criminally investigate or prosecute any alcohol or drug abuse patient.[facility] HospitalIn the event this information is protected by the Federal Confidentiality of Alcohol and Drug Abuse Patient Records regulations: The Federal rules restrict any use of the information to criminally investigate or prosecute any alcohol or drug abuse patient.[facility] HospitalIn the event this information is protected by the Federal Confidentiality of Alcohol and Drug Abuse Patient Records regulations: The Federal rules restrict any use of the information to criminally investigate or prosecute any alcohol or drug abuse patient.[facility] HospitalIn the event this information is protected by the Federal Confidentiality of Alcohol and Drug Abuse Patient Records regulations: The Federal rules restrict any use of the information to criminally investigate or prosecute any alcohol or drug abuse patient.[facility] HospitalIn the event this information is protected by the Federal Confidentiality of Alcohol and Drug Abuse Patient Records regulations: The Federal rules restrict any use of the information to criminally investigate or prosecute any alcohol or drug abuse patient.[facility] HospitalIn the event this information is protected by the Federal Confidentiality of Alcohol and Drug Abuse Patient Records regulations: The Federal rules restrict any use of the information to criminally investigate or prosecute any alcohol or drug abuse patient.[facility] HospitalIn the event this information is protected by the Federal Confidentiality of Alcohol and Drug Abuse Patient Records regulations: The Federal rules restrict any use of the information to criminally investigate or prosecute any alcohol or drug abuse patient.[facility] HospitalIn the event this information is protected by the Federal Confidentiality of Alcohol and Drug Abuse Patient Records regulations: The Federal rules restrict any use of the information to criminally investigate or prosecute any alcohol or drug abuse patient.[facility] HospitalIn the event this information is protected by the Federal Confidentiality of Alcohol and Drug Abuse Patient Records regulations: The Federal rules restrict any use of the information to criminally investigate or prosecute any alcohol or drug abuse patient.[facility] HospitalIn the event this information is protected by the Federal Confidentiality of Alcohol and Drug Abuse Patient Records regulations: The Federal rules restrict any use of the information to criminally investigate or prosecute any alcohol or drug abuse patient.[facility] HospitalIn the event this information is protected by the Federal Confidentiality of Alcohol and Drug Abuse Patient Records regulations: The Federal rules restrict any use of the information to criminally investigate or prosecute any alcohol or drug abuse patient.[facility] HospitalIn the event this information is protected by the Federal Confidentiality of Alcohol and Drug Abuse Patient Records regulations: The Federal rules restrict any use of the information to criminally investigate or prosecute any alcohol or drug abuse patient.[facility] HospitalIn the event this information is protected by the Federal Confidentiality of Alcohol and Drug Abuse Patient Records regulations: The Federal rules restrict any use of the information to criminally investigate or prosecute any alcohol or drug abuse patient.[facility] HospitalIn the event this information is protected by the Federal Confidentiality of Alcohol and Drug Abuse Patient Records regulations: The Federal rules restrict any use of the information to criminally investigate or prosecute any alcohol or drug abuse patient.[facility] HospitalIn the event this information is protected by the Federal Confidentiality of Alcohol and Drug Abuse Patient Records regulations: The Federal rules restrict any use of the information to criminally investigate or prosecute any alcohol or drug abuse patient.[facility] HospitalIn the event this information is protected by the Federal Confidentiality of Alcohol and Drug Abuse Patient Records regulations: The Federal rules restrict any use of the information to criminally investigate or prosecute any alcohol or drug abuse patient.[facility] HospitalIn the event this information is protected by the Federal Confidentiality of Alcohol and Drug Abuse Patient Records regulations: The Federal rules restrict any use of the information to criminally investigate or prosecute any alcohol or drug abuse patient.[facility] HospitalIn the event this information is protected by the Federal Confidentiality of Alcohol and Drug Abuse Patient Records regulations: The Federal rules restrict any use of the information to criminally investigate or prosecute any alcohol or drug abuse patient.[facility] HospitalIn the event this information is protected by the Federal Confidentiality of Alcohol and Drug Abuse Patient Records regulations: The Federal rules restrict any use of the information to criminally investigate or prosecute any alcohol or drug abuse patient.[facility] HospitalIn the event this information is protected by the Federal Confidentiality of Alcohol and Drug Abuse Patient Records regulations: The Federal rules restrict any use of the information to criminally investigate or prosecute any alcohol or drug abuse patient.[facility] HospitalIn the event this information is protected by the Federal Confidentiality of Alcohol and Drug Abuse Patient Records regulations: The Federal rules restrict any use of the information to criminally investigate or prosecute any alcohol or drug abuse patient.[facility] HospitalIn the event this information is protected by the Federal Confidentiality of Alcohol and Drug Abuse Patient Records regulations: The Federal rules restrict any use of the information to criminally investigate or prosecute any alcohol or drug abuse patient.[facility] HospitalIn the event this information is protected by the Federal Confidentiality of Alcohol and Drug Abuse Patient Records regulations: The Federal rules restrict any use of the information to criminally investigate or prosecute any alcohol or drug abuse patient.[facility] HospitalIn the event this information is protected by the Federal Confidentiality of Alcohol and Drug Abuse Patient Records regulations: The Federal rules restrict any use of the information to criminally investigate or prosecute any alcohol or drug abuse patient.[facility] HospitalIn the event this information is protected by the Federal Confidentiality of Alcohol and Drug Abuse Patient Records regulations: The Federal rules restrict any use of the information to criminally investigate or prosecute any alcohol or drug abuse patient.[facility] HospitalIn the event this information is protected by the Federal Confidentiality of Alcohol and Drug Abuse Patient Records regulations: The Federal rules restrict any use of the information to criminally investigate or prosecute any alcohol or drug abuse patient.[facility] HospitalIn the event this information is protected by the Federal Confidentiality of Alcohol and Drug Abuse Patient Records regulations: The Federal rules restrict any use of the information to criminally investigate or prosecute any alcohol or drug abuse patient.[facility] HospitalIn the event this information is protected by the Federal Confidentiality of Alcohol and Drug Abuse Patient Records regulations: The Federal rules restrict any use of the information to criminally investigate or prosecute any alcohol or drug abuse patient.[facility] HospitalIn the event this information is protected by the Federal Confidentiality of Alcohol and Drug Abuse Patient Records regulations: The Federal rules restrict any use of the information to criminally investigate or prosecute any alcohol or drug abuse patient.[facility] HospitalIn the event this information is protected by the Federal Confidentiality of Alcohol and Drug Abuse Patient Records regulations: The Federal rules restrict any use of the information to criminally investigate or prosecute any alcohol or drug abuse patient.[facility] HospitalIn the event this information is protected by the Federal Confidentiality of Alcohol and Drug Abuse Patient Records regulations: The Federal rules restrict any use of the information to criminally investigate or prosecute any alcohol or drug abuse patient.[facility] HospitalIn the event this information is protected by the Federal Confidentiality of Alcohol and Drug Abuse Patient Records regulations: The Federal rules restrict any use of the information to criminally investigate or prosecute any alcohol or drug abuse patient.[facility] HospitalIn the event this information is protected by the Federal Confidentiality of Alcohol and Drug Abuse Patient Records regulations: The Federal rules restrict any use of the information to criminally investigate or prosecute any alcohol or drug abuse patient.[facility] HospitalIn the event this information is protected by the Federal Confidentiality of Alcohol and Drug Abuse Patient Records regulations: The Federal rules restrict any use of the information to criminally investigate or prosecute any alcohol or drug abuse patient.[facility] HospitalIn the event this information is protected by the Federal Confidentiality of Alcohol and Drug Abuse Patient Records regulations: The Federal rules restrict any use of the information to criminally investigate or prosecute any alcohol or drug abuse patient.[facility] HospitalIn the event this information is protected by the Federal Confidentiality of Alcohol and Drug Abuse Patient Records regulations: The Federal rules restrict any use of the information to criminally investigate or prosecute any alcohol or drug abuse patient.[facility] HospitalIn the event this information is protected by the Federal Confidentiality of Alcohol and Drug Abuse Patient Records regulations: The Federal rules restrict any use of the information to criminally investigate or prosecute any alcohol or drug abuse patient.[facility] HospitalIn the event this information is protected by the Federal Confidentiality of Alcohol and Drug Abuse Patient Records regulations: The Federal rules restrict any use of the information to criminally investigate or prosecute any alcohol or drug abuse patient.[facility] HospitalIn the event this information is protected by the Federal Confidentiality of Alcohol and Drug Abuse Patient Records regulations: The Federal rules restrict any use of the information to criminally investigate or prosecute any alcohol or drug abuse patient.[facility] HospitalIn the event this information is protected by the Federal Confidentiality of Alcohol and Drug Abuse Patient Records regulations: The Federal rules restrict any use of the information to criminally investigate or prosecute any alcohol or drug abuse patient.[facility] HospitalIn the event this information is protected by the Federal Confidentiality of Alcohol and Drug Abuse Patient Records regulations: The Federal rules restrict any use of the information to criminally investigate or prosecute any alcohol or drug abuse patient.[facility] HospitalIn the event this information is protected by the Federal Confidentiality of Alcohol and Drug Abuse Patient Records regulations: The Federal rules restrict any use of the information to criminally investigate or prosecute any alcohol or drug abuse patient.[facility] HospitalIn the event this information is protected by the Federal Confidentiality of Alcohol and Drug Abuse Patient Records regulations: The Federal rules restrict any use of the information to criminally investigate or prosecute any alcohol or drug abuse patient.[facility] HospitalIn the event this information is protected by the Federal Confidentiality of Alcohol and Drug Abuse Patient Records regulations: The Federal rules restrict any use of the information to criminally investigate or prosecute any alcohol or drug abuse patient.[facility] HospitalIn the event this information is protected by the Federal Confidentiality of Alcohol and Drug Abuse Patient Records regulations: The Federal rules restrict any use of the information to criminally investigate or prosecute any alcohol or drug abuse patient.[facility] HospitalIn the event this information is protected by the Federal Confidentiality of Alcohol and Drug Abuse Patient Records regulations: The Federal rules restrict any use of the information to criminally investigate or prosecute any alcohol or drug abuse patient.[facility] HospitalIn the event this information is protected by the Federal Confidentiality of Alcohol and Drug Abuse Patient Records regulations: The Federal rules restrict any use of the information to criminally investigate or prosecute any alcohol or drug abuse patient.[facility] HospitalIn the event this information is protected by the Federal Confidentiality of Alcohol and Drug Abuse Patient Records regulations: The Federal rules restrict any use of the information to criminally investigate or prosecute any alcohol or drug abuse patient.[facility] HospitalIn the event this information is protected by the Federal Confidentiality of Alcohol and Drug Abuse Patient Records regulations: The Federal rules restrict any use of the information to criminally investigate or prosecute any alcohol or drug abuse patient.[facility] HospitalIn the event this information is protected by the Federal Confidentiality of Alcohol and Drug Abuse Patient Records regulations: The Federal rules restrict any use of the information to criminally investigate or prosecute any alcohol or drug abuse patient.[facility] HospitalIn the event this information is protected by the Federal Confidentiality of Alcohol and Drug Abuse Patient Records regulations: The Federal rules restrict any use of the information to criminally investigate or prosecute any alcohol or drug abuse patient.[facility] HospitalIn the event this information is protected by the Federal Confidentiality of Alcohol and Drug Abuse Patient Records regulations: The Federal rules restrict any use of the information to criminally investigate or prosecute any alcohol or drug abuse patient.[facility] HospitalIn the event this information is protected by the Federal Confidentiality of Alcohol and Drug Abuse Patient Records regulations: The Federal rules restrict any use of the information to criminally investigate or prosecute any alcohol or drug abuse patient.[facility] HospitalIn the event this information is protected by the Federal Confidentiality of Alcohol and Drug Abuse Patient Records regulations: The Federal rules restrict any use of the information to criminally investigate or prosecute any alcohol or drug abuse patient.[facility] HospitalIn the event this information is protected by the Federal Confidentiality of Alcohol and Drug Abuse Patient Records regulations: The Federal rules restrict any use of the information to criminally investigate or prosecute any alcohol or drug abuse patient.[facility] HospitalIn the event this information is protected by the Federal Confidentiality of Alcohol and Drug Abuse Patient Records regulations: The Federal rules restrict any use of the information to criminally investigate or prosecute any alcohol or drug abuse patient.[facility] HospitalIn the event this information is protected by the Federal Confidentiality of Alcohol and Drug Abuse Patient Records regulations: The Federal rules restrict any use of the information to criminally investigate or prosecute any alcohol or drug abuse patient.[facility] HospitalIn the event this information is protected by the Federal Confidentiality of Alcohol and Drug Abuse Patient Records regulations: The Federal rules restrict any use of the information to criminally investigate or prosecute any alcohol or drug abuse patient.[facility] HospitalIn the event this information is protected by the Federal Confidentiality of Alcohol and Drug Abuse Patient Records regulations: The Federal rules restrict any use of the information to criminally investigate or prosecute any alcohol or drug abuse patient.[facility] HospitalIn the event this information is protected by the Federal Confidentiality of Alcohol and Drug Abuse Patient Records regulations: The Federal rules restrict any use of the information to criminally investigate or prosecute any alcohol or drug abuse patient.[facility] HospitalIn the event this information is protected by the Federal Confidentiality of Alcohol and Drug Abuse Patient Records regulations: The Federal rules restrict any use of the information to criminally investigate or prosecute any alcohol or drug abuse patient.[facility] HospitalIn the event this information is protected by the Federal Confidentiality of Alcohol and Drug Abuse Patient Records regulations: The Federal rules restrict any use of the information to criminally investigate or prosecute any alcohol or drug abuse patient.[facility] HospitalIn the event this information is protected by the Federal Confidentiality of Alcohol and Drug Abuse Patient Records regulations: The Federal rules restrict any use of the information to criminally investigate or prosecute any alcohol or drug abuse patient.[facility] HospitalIn the event this information is protected by the Federal Confidentiality of Alcohol and Drug Abuse Patient Records regulations: The Federal rules restrict any use of the information to criminally investigate or prosecute any alcohol or drug abuse patient.[facility] HospitalIn the event this information is protected by the Federal Confidentiality of Alcohol and Drug Abuse Patient Records regulations: The Federal rules restrict any use of the information to criminally investigate or prosecute any alcohol or drug abuse patient.[facility] HospitalIn the event this information is protected by the Federal Confidentiality of Alcohol and Drug Abuse Patient Records regulations: The Federal rules restrict any use of the information to criminally investigate or prosecute any alcohol or drug abuse patient.[facility] HospitalIn the event this information is protected by the Federal Confidentiality of Alcohol and Drug Abuse Patient Records regulations: The Federal rules restrict any use of the information to criminally investigate or prosecute any alcohol or drug abuse patient.[facility] HospitalIn the event this information is protected by the Federal Confidentiality of Alcohol and Drug Abuse Patient Records regulations: The Federal rules restrict any use of the information to criminally investigate or prosecute any alcohol or drug abuse patient.[facility] HospitalIn the event this information is protected by the Federal Confidentiality of Alcohol and Drug Abuse Patient Records regulations: The Federal rules restrict any use of the information to criminally investigate or prosecute any alcohol or drug abuse patient.[facility] HospitalIn the event this information is protected by the Federal Confidentiality of Alcohol and Drug Abuse Patient Records regulations: The Federal rules restrict any use of the information to criminally investigate or prosecute any alcohol or drug abuse patient.[facility] HospitalIn the event this information is protected by the Federal Confidentiality of Alcohol and Drug Abuse Patient Records regulations: The Federal rules restrict any use of the information to criminally investigate or prosecute any alcohol or drug abuse patient.[facility] HospitalIn the event this information is protected by the Federal Confidentiality of Alcohol and Drug Abuse Patient Records regulations: The Federal rules restrict any use of the information to criminally investigate or prosecute any alcohol or drug abuse patient.[facility] HospitalIn the event this information is protected by the Federal Confidentiality of Alcohol and Drug Abuse Patient Records regulations: The Federal rules restrict any use of the information to criminally investigate or prosecute any alcohol or drug abuse patient.[facility] HospitalIn the event this information is protected by the Federal Confidentiality of Alcohol and Drug Abuse Patient Records regulations: The Federal rules restrict any use of the information to criminally investigate or prosecute any alcohol or drug abuse patient.[facility] HospitalIn the event this information is protected by the Federal Confidentiality of Alcohol and Drug Abuse Patient Records regulations: The Federal rules restrict any use of the information to criminally investigate or prosecute any alcohol or drug abuse patient.[facility] HospitalIn the event this information is protected by the Federal Confidentiality of Alcohol and Drug Abuse Patient Records regulations: The Federal rules restrict any use of the information to criminally investigate or prosecute any alcohol or drug abuse patient.[facility] HospitalIn the event this information is protected by the Federal Confidentiality of Alcohol and Drug Abuse Patient Records regulations: The Federal rules restrict any use of the information to criminally investigate or prosecute any alcohol or drug abuse patient.[facility] HospitalIn the event this information is protected by the Federal Confidentiality of Alcohol and Drug Abuse Patient Records regulations: The Federal rules restrict any use of the information to criminally investigate or prosecute any alcohol or drug abuse patient.[facility] HospitalIn the event this information is protected by the Federal Confidentiality of Alcohol and Drug Abuse Patient Records regulations: The Federal rules restrict any use of the information to criminally investigate or prosecute any alcohol or drug abuse patient.[facility] HospitalIn the event this information is protected by the Federal Confidentiality of Alcohol and Drug Abuse Patient Records regulations: The Federal rules restrict any use of the information to criminally investigate or prosecute any alcohol or drug abuse patient.[facility] HospitalIn the event this information is protected by the Federal Confidentiality of Alcohol and Drug Abuse Patient Records regulations: The Federal rules restrict any use of the information to criminally investigate or prosecute any alcohol or drug abuse patient.[facility] HospitalIn the event this information is protected by the Federal Confidentiality of Alcohol and Drug Abuse Patient Records regulations: The Federal rules restrict any use of the information to criminally investigate or prosecute any alcohol or drug abuse patient.[facility] HospitalIn the event this information is protected by the Federal Confidentiality of Alcohol and Drug Abuse Patient Records regulations: The Federal rules restrict any use of the information to criminally investigate or prosecute any alcohol or drug abuse patient.[facility] HospitalIn the event this information is protected by the Federal Confidentiality of Alcohol and Drug Abuse Patient Records regulations: The Federal rules restrict any use of the information to criminally investigate or prosecute any alcohol or drug abuse patient.[facility] HospitalIn the event this information is protected by the Federal Confidentiality of Alcohol and Drug Abuse Patient Records regulations: The Federal rules restrict any use of the information to criminally investigate or prosecute any alcohol or drug abuse patient.[facility] HospitalIn the event this information is protected by the Federal Confidentiality of Alcohol and Drug Abuse Patient Records regulations: The Federal rules restrict any use of the information to criminally investigate or prosecute any alcohol or drug abuse patient.[facility] HospitalIn the event this information is protected by the Federal Confidentiality of Alcohol and Drug Abuse Patient Records regulations: The Federal rules restrict any use of the information to criminally investigate or prosecute any alcohol or drug abuse patient.[facility] HospitalIn the event this information is protected by the Federal Confidentiality of Alcohol and Drug Abuse Patient Records regulations: The Federal rules restrict any use of the information to criminally investigate or prosecute any alcohol or drug abuse patient.[facility] HospitalIn the event this information is protected by the Federal Confidentiality of Alcohol and Drug Abuse Patient Records regulations: The Federal rules restrict any use of the information to criminally investigate or prosecute any alcohol or drug abuse patient.[facility] HospitalIn the event this information is protected by the Federal Confidentiality of Alcohol and Drug Abuse Patient Records regulations: The Federal rules restrict any use of the information to criminally investigate or prosecute any alcohol or drug abuse patient.[facility] HospitalIn the event this information is protected by the Federal Confidentiality of Alcohol and Drug Abuse Patient Records regulations: The Federal rules restrict any use of the information to criminally investigate or prosecute any alcohol or drug abuse patient.[facility] HospitalIn the event this information is protected by the Federal Confidentiality of Alcohol and Drug Abuse Patient Records regulations: The Federal rules restrict any use of the information to criminally investigate or prosecute any alcohol or drug abuse patient.[facility] HospitalIn the event this information is protected by the Federal Confidentiality of Alcohol and Drug Abuse Patient Records regulations: The Federal rules restrict any use of the information to criminally investigate or prosecute any alcohol or drug abuse patient.[facility] HospitalIn the event this information is protected by the Federal Confidentiality of Alcohol and Drug Abuse Patient Records regulations: The Federal rules restrict any use of the information to criminally investigate or prosecute any alcohol or drug abuse patient.[facility] HospitalIn the event this information is protected by the Federal Confidentiality of Alcohol and Drug Abuse Patient Records regulations: The Federal rules restrict any use of the information to criminally investigate or prosecute any alcohol or drug abuse patient.[facility] HospitalIn the event this information is protected by the Federal Confidentiality of Alcohol and Drug Abuse Patient Records regulations: The Federal rules restrict any use of the information to criminally investigate or prosecute any alcohol or drug abuse patient.[facility] HospitalIn the event this information is protected by the Federal Confidentiality of Alcohol and Drug Abuse Patient Records regulations: The Federal rules restrict any use of the information to criminally investigate or prosecute any alcohol or drug abuse patient.[facility] HospitalIn the event this information is protected by the Federal Confidentiality of Alcohol and Drug Abuse Patient Records regulations: The Federal rules restrict any use of the information to criminally investigate or prosecute any alcohol or drug abuse patient.[facility] HospitalIn the event this information is protected by the Federal Confidentiality of Alcohol and Drug Abuse Patient Records regulations: The Federal rules restrict any use of the information to criminally investigate or prosecute any alcohol or drug abuse patient.[facility] HospitalIn the event this information is protected by the Federal Confidentiality of Alcohol and Drug Abuse Patient Records regulations: The Federal rules restrict any use of the information to criminally investigate or prosecute any alcohol or drug abuse patient.[facility] HospitalIn the event this information is protected by the Federal Confidentiality of Alcohol and Drug Abuse Patient Records regulations: The Federal rules restrict any use of the information to criminally investigate or prosecute any alcohol or drug abuse patient.[facility] HospitalIn the event this information is protected by the Federal Confidentiality of Alcohol and Drug Abuse Patient Records regulations: The Federal rules restrict any use of the information to criminally investigate or prosecute any alcohol or drug abuse patient.[facility] HospitalIn the event this information is protected by the Federal Confidentiality of Alcohol and Drug Abuse Patient Records regulations: The Federal rules restrict any use of the information to criminally investigate or prosecute any alcohol or drug abuse patient.[facility] HospitalIn the event this information is protected by the Federal Confidentiality of Alcohol and Drug Abuse Patient Records regulations: The Federal rules restrict any use of the information to criminally investigate or prosecute any alcohol or drug abuse patient.[facility] HospitalIn the event this information is protected by the Federal Confidentiality of Alcohol and Drug Abuse Patient Records regulations: The Federal rules restrict any use of the information to criminally investigate or prosecute any alcohol or drug abuse patient.[facility] Reason for Visit (unrecogniz ed section and content) Reason Comments Follow Up Specialty Diagnoses / Procedures Referred By Contac t Referred To Contact Psychiatry / ADULT PSYCHIATRY Diagnoses med check Procedures VIDEO PSYC/PSYL EST Clayton Granados, ALARM SIGNALER.MANAGER CLINICAL RESEARCH [address] [place] [address] Clayton Granados, ALARM SIGNALER.MANAGER CLINICAL RESEARCH [address] [place] [address] Referral ID Status Reason Start Date Expiration Date V isits Requested Visits Authorized [id number] New Request 05/18/2024 08/16/20[address] Reason Comments Results 10/10 Reason Comments New Patient Evaluation Specialty Diagnoses / Procedures Referred By Matias t Referred To Contact Diagnoses Panic attacks Bipolar affective disorder, current episode mixed, current episode severity unspecified (HCC) Depressive disorder Procedures CONSULT TO PSYCHIATRY OFFICE/OUTPATIENT NEW HIGH MDM 60-74 MINUTES Fredrick Boland, [address] [place] [address] Referral ID Status Reason Start Date Expiration Date Visits Requested Visits Authorized [id number] Pending Review PCP Requested Referral 07/20/2021 07/20/2022 [...] ECT Referral 08/24/2022 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 Date Comments 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 Worker - Other 10/01/2022 ECT Reason Comments Patient Update 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 Date Comments Refill Request 12/31/2022 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 Date Comments Refill Request 01/05/2023 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 Date Comments Refill Request 03/15/2023 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 Date Comments Refill Request 09/27/2023 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 Date Comments Refill Request 12/12/2023 Reason Comments Appointment Rescheduled Reason Comments Results EKG Reason Comments Yearly Exam Was in ER 2/4 for di zziness, low potassium and anemia, needs EKG per clayton Reason Comments Acute Visit Cough, chest congest ion & discomfort x 1 week 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 Date Comments Results 08/08/2024 Reason Comments Appointment Reason Comments New Patient Reason Comments Gut Rehab/ Intestine Txp Referral Reason Comments Gut Rehab/ Intestinal Txp Referral Reason Comments Established Patient Reason Comments Gut Rehab/ Intestine Txp Referral Reason Comments Blood Draw (CVAD) Reason Comments Electronic Communication Reason Comments Results Follow Up Reason Comments Virtual Education Visit Reason Comments TPN Assessment Reason Comments Transition Of Care Left V/m Reason Comments Return Call Request Reason Comments IV Medication Administration Reason Comments Research [facility] / 738 Reason Comments Hospital F/U Reason Comments Transition Of Care RC f/u discharge LVM 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 Date Comments Research 12/25/2024 COPE-JONATAN Study/I RB: [id number]- Pharmacist Contact Reason Comments CMN Please see the docum ent linked in the form filler section of this encounter and click the link to review. The document needs to be electronically signed at the bottom with both a wet signature (bottom left) and electronic signature (bottom right). The completed documentation/encounter can be routed back to Yuri Salcedo. If you have any questions, please feel call Yuri Salcedo at [phone] Reason Comments Transition Of Care Reason Comments Research IRB: [id number] Caring f or OutPatiEnts after Acute Kidney Injury (COPE-JONATAN) trial PI: Dr. Juan Manuel Byrd Reason Comments Critical Lab Reason Comments Needs sutures in abdominal , needs on a blood thinner, talk 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 Date Comments Results 01/15/2025 Care Teams (unrecognized sec tion and content) Human Resources Operations Director Relationship Specialty Start Date End Date Fredrick Boland, DO [address] [place] [address] PCP - General Family Practice 10/29/15 Human Resources Operations Director Relationship Specialty Start Date End Date Fredrick Boland, DO [address] [place] [address] PCP - General Family Practice 10/29/15 Human Resources Operations Director Relationship Specialty Start Date End Date Fredrick Boland, DO [address] [place] [address] PCP - General Family Practice 10/29/15 Human Resources Operations Director Relationship Specialty Start Date End Date Fredrick Boland, DO [address] [place] [address] PCP - General Family Practice 10/29/15 Human Resources Operations Director Relationship Specialty Start Date End Date Fredrick Boland, DO [address] [place] [address] PCP - General Family Practice 10/29/15 Human Resources Operations Director Relationship Specialty Start Date End Date Fredrick Boland, DO [address] [place] [address] PCP - General Family Practice 10/29/15 Human Resources Operations Director Relationship Specialty Start Date End Date Fredrick Boland, DO [address] [place] [address] PCP - General Family Practice 10/29/15 Human Resources Operations Director Relationship Specialty Start Date End Date Fredrick Boland, DO [address] [place] [address] PCP - General Family Practice 10/29/15 Human Resources Operations Director Relationship Specialty Start Date End Date Fredrick Boland, DO [address] [place] [address] PCP - General Family Practice 10/29/15 Human Resources Operations Director Relationship Specialty Start Date End Date Fredrick Boland, DO [address] [place] [address] PCP - General Family Practice 10/29/15 Human Resources Operations Director Relationship Specialty Start Date End Date Fredrick Boland, DO [address] [place] [address] PCP - General Family Practice 10/29/15 Human Resources Operations Director Relationship Specialty Start Date End Date Fredrick Boland, DO [address] [place] [address] PCP - General Family Practice 10/29/15 Human Resources Operations Director Relationship Specialty Start Date End Date Fredrick Boland, DO [address] [place] [address] PCP - General Family Practice 10/29/15 Human Resources Operations Director Relationship Specialty Start Date End Date Fredrick Boland, DO [address] [place] [address] PCP - General Family Practice 10/29/15 Human Resources Operations Director Relationship Specialty Start Date End Date Fredrick Boland, DO [address] [place] [address] PCP - General Family Medicine 10/29/15 Human Resources Operations Director Relationship Specialty Start Date End Date Fredrick Boland, DO [address] [place] [address] PCP - General Family Medicine 10/29/15 Human Resources Operations Director Relationship Specialty Start Date End Date Fredrick Boland, DO [address] [place] [address] PCP - General Family Medicine 10/29/15 Human Resources Operations Director Relationship Specialty Start Date End Date Fredrick Boland, DO [address] [place] [address] PCP - General Family Medicine 10/29/15 Human Resources Operations Director Relationship Specialty Start Date End Date Fredrick Boland, DO [address] [place] [address] PCP - General Family Medicine 10/29/15 Human Resources Operations Director Relationship Specialty Start Date End Date Fredrick Boland, DO [address] [facility] [place] [address] PCP - General Family Medicine 10/29/15 Human Resources Operations Director Relationship Specialty Start Date End Date Fredrick Boland, DO [address] [facility] [place] [address] PCP - General Family Medicine 10/29/15 Human Resources Operations Director Relationship Specialty Start Date End Date Fredrick Boland, DO [address] [facility] [place] [address] PCP - General Family Medicine 10/29/15 Human Resources Operations Director Relationship Specialty Start Date End Date Fredrick Boland, DO [address] [facility] [place] [address] PCP - General Family Medicine 10/29/15 Human Resources Operations Director Relationship Specialty Start Date End Date Fredrick Boland, DO [address] [facility] [place] [address] PCP - General Family Medicine 10/29/15 Human Resources Operations Director Relationship Specialty Start Date End Date Fredrick Boland, DO [address] [facility] [place] [address] PCP - General Family Medicine 10/29/15 Ariella Cortes, RN Registered Nurse Psychiatry 08/30/22 Human Resources Operations Director Relationship Specialty Start Date End Date Fredrick Boland, DO [address] [facility] [place] [address] PCP - General Family Medicine 10/29/15 Ariella Cortes, RN Registered Nurse Psychiatry 08/30/22 Human Resources Operations Director Relationship Specialty Start Date End Date Fredrick Boland, DO [address] [facility] [place] [address] PCP - General Family Medicine 10/29/15 Ariella Cortes, RN Registered Nurse Psychiatry 08/30/22 Human Resources Operations Director Relationship Specialty Start Date End Date Fredrick Boland, DO [address] [facility] [place] [address] PCP - General Family Medicine 10/29/15 Ariella Cortes, RN Registered Nurse Psychiatry 08/30/22 Human Resources Operations Director Relationship Specialty Start Date End Date Fredrick Boland, DO [address] [facility] [place] [address] PCP - General Family Medicine 10/29/15 Ariella Cortes, RN Registered Nurse Psychiatry 08/30/22 Human Resources Operations Director Relationship Specialty Start Date End Date Fredrick Boland DO [address] [facility] [place] [address] PCP - General Family Medicine 10/29/15 Ariella Cortes, RN Registered Nurse Psychiatry 08/30/22 Human Resources Operations Director Relationship Specialty Start Date End Date Fredrick Boland DO [address] [facility] [place] [address] PCP - General Family Medicine 10/29/15 Ariella Cortes, RN Registered Nurse Psychiatry 08/30/22 Human Resources Operations Director Relationship Specialty Start Date End Date Fredrick Boland DO [address] [facility] [place] [address] PCP - General Family Medicine 10/29/15 Ariella Cortes, RN Registered Nurse Psychiatry 08/30/22 Human Resources Operations Director Relationship Specialty Start Date End Date Fredrick Boland DO [address] [facility] [place] [address] PCP - General Family Medicine 10/29/15 Ariella Cortes, RN Registered Nurse Psychiatry 08/30/22 Human Resources Operations Director Relationship Specialty Start Date End Date Fredrick Boland DO [address] [place] [address] PCP - General Family Medicine 10/29/15 Ariella Cortes, RN Registered Nurse Psychiatry 08/30/22 Human Resources Operations Director Relationship Specialty Start Date End Date Fredrick Boland DO [address] [place] [address] PCP - General Family Medicine 10/29/15 Ariella Cortes, RN Registered Nurse Psychiatry 08/30/22 Human Resources Operations Director Relationship Specialty Start Date End Date Fredrick Boland DO [address] [facility] [place] [address] PCP - General Family Medicine 10/29/15 Ariella Cortes, RN Registered Nurse Psychiatry 08/30/22 Human Resources Operations Director Relationship Specialty Start Date End Date Fredrick Boland DO [address] [facility] [place] [address] PCP - General Family Medicine 10/29/15 Ariella Cortes, RN Registered Nurse Psychiatry 08/30/22 Human Resources Operations Director Relationship Specialty Start Date End Date Fredrick Boland DO [address] [facility] [place] [address] PCP - General Family Medicine 10/29/15 Ariella Cortes, RN Registered Nurse Psychiatry 08/30/22 Human Resources Operations Director Relationship Specialty Start Date End Date Fredrick Boland DO [address] [facility] [place] [address] PCP - General Family Medicine 10/29/15 Ariella Cortes, RN Registered Nurse Psychiatry 08/30/22 Human Resources Operations Director Relationship Specialty Start Date End Date Fredrick Boland DO [address] [facility] [place] [address] PCP - General Family Medicine 10/29/15 Ariella Cortes, RN Registered Nurse Psychiatry 08/30/22 Human Resources Operations Director Relationship Specialty Start Date End Date Fredrick Boland DO [address] [facility] [place] [address] PCP - General Family Medicine 10/29/15 Ariella Cortes, RN Registered Nurse Psychiatry 08/30/22 Human Resources Operations Director Relationship Specialty Start Date End Date Fredrick Boland DO [address] [facility] [place] [address] PCP - General Family Medicine 10/29/15 Ariella Cortes, RN Registered Nurse Psychiatry 08/30/22 Human Resources Operations Director Relationship Specialty Start Date End Date Fredrick Boland DO [address] [facility] [place] [address] PCP - General Family Medicine 10/29/15 Ariella Cortes, RN Registered Nurse Psychiatry 08/30/22 Human Resources Operations Director Relationship Specialty Start Date End Date Fredrick Boland DO [address] [facility] [place] [address] PCP - General Family Medicine 10/29/15 Ariella Cortes, RN Registered Nurse Psychiatry 08/30/22 Human Resources Operations Director Relationship Specialty Start Date End Date Fredrick Boland DO [address] [facility] [place] [address] PCP - General Family Medicine 10/29/15 Human Resources Operations Director Relationship Specialty Start Date End Date Fredrick Boland DO [address] [facility] [place] [address] PCP - General Family Medicine 10/29/15 Ariella Cortes, RN Registered Nurse Psychiatry 08/30/22 Human Resources Operations Director Relationship Specialty Start Date End Date Fredrick Boland DO [address] [place] [address] PCP - General Family Medicine 10/29/15 Ariella Cortes, RN Registered Nurse Psychiatry 08/30/22 Yesenia Rangel, ALARM SIGNALER.MANAGER CLINICAL RESEARCH [address] [place] [address] [employer] [facility] 06/03/24 [facility], ALARM SIGNALER.MANAGER CLINICAL RESEARCH [address] [place] [address] [facility]24 Human Resources Operations Director Relationship Specialty Start Date End Date Fredrick Boland DO [address] [place] [address] PCP - General Family Medicine 10/29/15 Ariella Cortes, RN Registered Nurse Psychiatry 08/30/22 Yesenia Rangel, ALARM SIGNALER.MANAGER CLINICAL RESEARCH [address] [facility] [place] [address] [facility] 06/03/24 DanishaXochilt, ALARM SIGNALER.MANAGER CLINICAL RESEARCH [address] [place] [address] [facility] 06/03/24 Human Resources Operations Director Relationship Specialty Start Date End Date Fredrick Boland DO [address] [place] [address] PCP - General Family Medicine 10/29/15 Ariella Cortes, RN Registered Nurse Psychiatry 08/30/22 08/07/24 Yesenia Rangel, ALARM SIGNALER.MANAGER CLINICAL RESEARCH [address] [facility] [place] [address] [facility] 06/03/24 [facility] Xochilt, ALARM SIGNALER.MANAGER CLINICAL RESEARCH [address] [place] [address] [facility] 06/03/24 Human Resources Operations Director Relationship Specialty Start Date End Date Fredrick Boland DO [address] [place] [address] PCP - General Family Medicine 10/29/15 Yesenia Rangel, ALARM SIGNALER.MANAGER CLINICAL RESEARCH [address] [facility] [place] [address] [facility] 06/03/24 [facility] Xochilt, ALARM SIGNALER.MANAGER CLINICAL RESEARCH [address] [facility] [place] [address] [facility] 06/03/24 Human Resources Operations Director Relationship Specialty Start Date End Date Fredrick Boland DO [address] [facility] [place] [address] PCP - General Family Medicine 10/29/15 Yesenia Rangel, ALARM SIGNALER.MANAGER CLINICAL RESEARCH [address] [place] [address] [facility] 06/03/24 [facility], ALARM SIGNALER.MANAGER CLINICAL RESEARCH [address] [facility] [place] [address] [facility] 06/03/24 Human Resources Operations Director Relationship Specialty Start Date End Date Fredrick Boland DO [address] [facility] [place] [address] PCP - General Family Medicine 10/29/15 Yesenia Rangel, ALARM SIGNALER.MANAGER CLINICAL RESEARCH [address] [facility] [place] [address] [facility] 06/03/24 Xochilt Gaston, ALARM SIGNALER.MANAGER CLINICAL RESEARCH [address] [place] [address] [facility] 06/03/24 Human Resources Operations Director Relationship Specialty Start Date End Date Fredrick Boland DO [address] [facility] [place] [address] PCP - General Family Medicine 10/29/15 Yesenia Rangel, ALARM SIGNALER.MANAGER CLINICAL RESEARCH [address] [facility] [place] [address] [facility] 06/03/24 Xochilt Gaston, ALARM SIGNALER.MANAGER CLINICAL RESEARCH [address] [facility] [place] [address] [facility] 06/03/24 Human Resources Operations Director Relationship Specialty Start Date End Date Fredrick Boland DO [address] [place] [address] PCP - General Family Medicine 10/29/15 Yesenia Rangel, ALARM SIGNALER.MANAGER CLINICAL RESEARCH [address] [facility] [place] [address] [facility] 06/03/24 Xochilt Gaston, ALARM SIGNALER.MANAGER CLINICAL RESEARCH [address] [facility] [place] [address] [facility] 06/03/24 Human Resources Operations Director Relationship Specialty Start Date End Date Fredrick Boland DO [address] [facility] [place] [address] PCP - General Family Medicine 10/29/15 Yesenia Rangel, ALARM SIGNALER.MANAGER CLINICAL RESEARCH [address] [place] [address] [facility] 06/03/24 Xochilt Gaston, ALARM SIGNALER.MANAGER CLINICAL RESEARCH [address] [place] [address] [facility] 06/03/24 Human Resources Operations Director Relationship Specialty Start Date End Date Fredrick Boland DO [address] [place] [address] PCP - General Family Medicine 10/29/15 Yesenia Rangel, ALARM SIGNALER.MANAGER CLINICAL RESEARCH [address] [place] [address] [facility] 06/03/24 Xochilt Gaston, ALARM SIGNALER.MANAGER CLINICAL RESEARCH [address] [place] [address] [facility] 06/03/24 Human Resources Operations Director Relationship Specialty Start Date End Date Fredrick Boland DO [address] [place] [address] PCP - General Family Medicine 10/29/15 Yesenia Rangel, ALARM SIGNALER.MANAGER CLINICAL RESEARCH [address] [place] [address] [facility] 06/03/24 Xochilt Gaston, ALARM SIGNALER.MANAGER CLINICAL RESEARCH [address] [place] [address] [facility] 06/03/24 Human Resources Operations Director Relationship Specialty Start Date End Date Fredrick Boland DO [address] [place] [address] PCP - General Family Medicine 10/29/15 Yesenia Rangel, ALARM SIGNALER.MANAGER CLINICAL RESEARCH [address] [facility] [place] [address] [facility] 06/03/24 Xochilt Gaston, ALARM SIGNALER.MANAGER CLINICAL RESEARCH [address] [facility] [place] [address] [facility] 06/03/24 Human Resources Operations Director Relationship Specialty Start Date End Date Fredrick Boland DO [address] [facility] [place] [address] PCP - General Family Medicine 10/29/15 Yesenia Rangel, ALARM SIGNALER.MANAGER CLINICAL RESEARCH [address] [facility] [place] [address] [facility] 06/03/24 Xochilt Gaston, ALARM SIGNALER.MANAGER CLINICAL RESEARCH [address] [facility] [place] [address] [facility] 06/03/24 Human Resources Operations Director Relationship Specialty Start Date End Date Fredrick Boland DO [address] [facility] [place] [address] PCP - General Family Medicine 10/29/15 Xochilt Gaston, ALARM SIGNALER.MANAGER CLINICAL RESEARCH [address] [facility] [place] [address] [facility] 06/03/24 Human Resources Operations Director Relationship Specialty Start Date End Date Fredrick Boland DO [address] [place], [place] 644504 [phone] PCP - General Family Medicine 10/29/15 Yesenia Rangel, ALARM SIGNALER.MANAGER CLINICAL RESEARCH [address] [place] [address] [facility] 06/03/24 09/14/24 Xochilt Gaston, ALARM SIGNALER.MANAGER CLINICAL RESEARCH [address] [place] [address] [facility] 06/03/24 Human Resources Operations Director Relationship Specialty Start Date End Date Fredrick Boland DO [address] [place] [address] PCP - General Family Medicine 10/29/15 Yesenia Rangel, ALARM SIGNALER.MANAGER CLINICAL RESEARCH [address] [place] [address] [facility] 06/03/24 09/14/24 Xochilt Gaston, ALARM SIGNALER.MANAGER CLINICAL RESEARCH [address] [place] [address] [facility] 06/03/24 Human Resources Operations Director Relationship Specialty Start Date End Date Fredrick Boland DO [address] [place] [address] PCP - General Family Medicine 10/29/15 Xochilt Gaston, ALARM SIGNALER.MANAGER CLINICAL RESEARCH [address] [place] [address] [facility] 06/03/24 Maggie Putnam MD [address] [place] [address] Internal Medicine 10/02/24 Human Resources Operations Director Relationship Specialty Start Date End Date Fredrick Boland DO [address] [facility] [place] [address] PCP - General Family Medicine 10/29/15 Xochilt Gaston, ALARM SIGNALER.MANAGER CLINICAL RESEARCH [address] [facility] [place] [address] [facility] 06/03/24 Maggie Putnam MD [address] [place] [address] Internal Medicine 10/02/24 Human Resources Operations Director Relationship Specialty Start Date End Date Fredrick Boland DO [address] [facility] [place] [address] PCP - General Family Medicine 10/29/15 Xochilt Gaston, ALARM SIGNALER.MANAGER CLINICAL RESEARCH [address] [facility] [place] [address] [facility] 06/03/24 Maggie Putnam MD [address] [place] [address] Internal Medicine 10/02/24 Human Resources Operations Director Relationship Specialty Start Date End Date Fredrick Boland DO [address] [facility] [place] [address] PCP - General Family Medicine 10/29/15 Xochilt Gaston, ALARM SIGNALER.MANAGER CLINICAL RESEARCH [address] [place] [address] [facility] 06/03/24 Maggie Putnam MD [address] [place] [address] Internal Medicine 10/02/24 Human Resources Operations Director Relationship Specialty Start Date End Date Fredrick Boland DO [address] [place] [address] PCP - General Family Medicine 10/29/15 Xochilt Gaston, ALARM SIGNALER.MANAGER CLINICAL RESEARCH [address] [place] [address] [facility] 06/03/24 Maggie Putnam MD [address] [place] [address] Internal Medicine 10/02/24 Human Resources Operations Director Relationship Specialty Start Date End Date Fredrick Boland DO [address] [place] [address] PCP - General Family Medicine 10/29/15 Xochilt Gaston, ALARM SIGNALER.MANAGER CLINICAL RESEARCH [address] [place] [address] [facility] 06/03/24 Maggie Putnam MD [address] [place] [address] Internal Medicine 10/02/24 Larry Betancourt MD [facility] 10/12/24 10/26/24 Human Resources Operations Director Relationship Specialty Start Date End Date Fredrick Boland DO [address] [place] [address] PCP - General Family Medicine 10/29/15 Xochilt Gaston APRN.MANAGER CLINICAL RESEARCH [address] [place] [address] [facility] 06/03/24 Maggie Putnam MD [address] [place] [address] Internal Medicine 10/02/24 Human Resources Operations Director Relationship Specialty Start Date End Date Fredrick Boland DO [address] [place] [address] PCP - General Family Medicine 11/28/24 Xochilt Gaston APRN.MANAGER CLINICAL RESEARCH [address] [place] [address] [facility] 06/03/24 Maggie Putnam MD [address] [place] [address] Internal Medicine 10/02/24 Lee Lou MD [address] [place] [address] Night Coverage Internal Medicine 11/28/24 11/28/24 Human Resources Operations Director Relationship Specialty Start Date End Date Xochilt Gaston ALARM SIGNALER.MANAGER CLINICAL RESEARCH [address] [place] [address] [facility] 06/03/24 Maggie Putnam MD [address] [place] [address] Internal Medicine 10/02/24 Human Resources Operations Director Relationship Specialty Start Date End Date Fredrick Boland DO [address] [place] [address] PCP - General Family Medicine 11/28/24 [facility] RehabilitationF[facility], ALARM SIGNALER.MANAGER CLINICAL RESEARCH [address] [place] [address] [facility] 06/03/24 Maggie Putnam MD [address] [place] [address] Internal Medicine 10/02/24 Ed Thomas, ALARM SIGNALER.MANAGER CLINICAL RESEARCH [address] [place] [address] [facility] 12/10/24 Human Resources Operations Director Relationship Specialty Start Date End Date Fredrick Boland DO [address] [place] [address] PCP - General Family Medicine 11/28/24 [facility] Rehabilitation[facility], ALARM SIGNALER.MANAGER CLINICAL RESEARCH [address] [place] [address] [facility] 06/03/24 Maggie Putnam MD [address] [place] [address] Internal Medicine 10/02/24 Ed Thomas, ALARM SIGNALER.MANAGER CLINICAL RESEARCH [address] [place] [address] [facility] 12/10/24 [facility] [address] [place], [place] [address] Transitional Care Pharmacist Pharmacy 12/20/24 03/21/25 Human Resources Operations Director Relationship Specialty Start Date End Date Fredrick Boland DO [address] [place] [address] PCP - General Family Medicine 11/28/24 Xochilt Gaston, ALARM SIGNALER.MANAGER CLINICAL RESEARCH [address] [place] [address] [facility] 06/03/24 Maggie Putnam MD [address] [place] [address] Internal Medicine 10/02/24 Ed Thomas, ALARM SIGNALER.MANAGER CLINICAL RESEARCH [address] [place] [address] [facility] 12/10/24 [facility] [address] [place] [address] Transitional Care Pharmacist Pharmacy 12/21/24 03/21/25 Human Resources Operations Director Relationship Specialty Start Date End Date Fredrick Boland DO [address] [place] [address] PCP - General Family Medicine 11/28/24 Xochilt Gaston, ALARM SIGNALER.MANAGER CLINICAL RESEARCH [address] [place] [address] [facility] 06/03/24 Maggie Putnam MD [address] [place] [address] [place] [address] Internal Medicine 10/02/24 Ed Thomas, ALARM SIGNALER.MANAGER CLINICAL RESEARCH [address] [place] [address] [facility] 12/10/24 [place] [phone] Transitional Care Pharmacist Pharmacy 12/21/24 03/21/25 Human Resources Operations Director Relationship Specialty Start Date End Date Fredrick Boland DO [address] [place] [address] PCP - General Family Medicine 11/28/24 Xochilt Gaston, ALARM SIGNALER.MANAGER CLINICAL RESEARCH [facility] [place] [address] [facility] 06/03/24 Maggie Putnam MD [address] [place] [address] Internal Medicine 10/02/24 Ed Thomas, ALARM SIGNALER.MANAGER CLINICAL RESEARCH [facility] [place] [address] [facility] 12/10/24 [facility] [address] [place] [address] Transitional Care Pharmacist Pharmacy 12/21/24 03/21/25 Human Resources Operations Director Relationship Specialty Start Date End Date Fredrick Boland DO [address] [place], [place] 470106 [phone] PCP - General Family Medicine 11/28/24 Xochilt Gaston, ALARM SIGNALER.MANAGER CLINICAL RESEARCH [address] [place], [place] 101291 [facility] 06/03/24 Maggie Putnam MD [address] [place] [address] Internal Medicine 10/02/24 Ed Thomas, ALARM SIGNALER.MANAGER CLINICAL RESEARCH [address] [place] [address] [facility] 12/10/24 [place] [phone] Transitional Care Pharmacist Pharmacy 12/21/24 03/21/25 Human Resources Operations Director Relationship Specialty Start Date End Date Fredrick Boland DO [address] [place] [address] PCP - General Family Medicine 11/28/24 Xochilt Gaston, ALARM SIGNALER.MANAGER CLINICAL RESEARCH [address] [place] [address] [facility] 06/03/24 Maggie Putnam MD [address] [place] [address] Internal Medicine 10/02/24 Ed Thomas, ALARM SIGNALER.MANAGER CLINICAL RESEARCH [address] [place] [address] [facility] 12/10/24 Mounika Trent, RPh [address] [place], [place] [phone] Transitional Care Pharmacist Pharmacy 12/21/24 03/21/25 Human Resources Operations Director Relationship Specialty Start Date End Date Fredrick Boland DO [address] [place] [address] PCP - General Family Medicine 11/28/24 Xochilt Gaston, ALARM SIGNALER.MANAGER CLINICAL RESEARCH [address] [place] [address] [facility] 06/03/24 Maggie Putnam MD [address] [place] [address] Internal Medicine 10/02/24 Ed Thomas, ALARM SIGNALER.MANAGER CLINICAL RESEARCH [address] [place] [address] [facility] 12/10/24 Mounika Trent, [facility] [address] [place] [phone] Transitional Care Pharmacist Pharmacy 12/21/24 03/21/25 Human Resources Operations Director Relationship Specialty Start Date End Date Fredrick Boland DO [address] [place] [address] PCP - General Family Medicine 11/28/24 Xochilt Gaston, ALARM SIGNALER.MANAGER CLINICAL RESEARCH [address] [place] [address] [facility] 06/03/24 Maggie Putnam MD [address] [place] [address] Internal Medicine 10/02/24 Ed Thomas, ALARM SIGNALER.MANAGER CLINICAL RESEARCH [facility] [place], [place] 645621 [facility] 12/10/24 [facility] [address] [place] [address] Transitional Care Pharmacist Pharmacy 12/21/24 03/21/25 Human Resources Operations Director Relationship Specialty Start Date End Date Fredrick Boland DO [address] [place] [address] PCP - General Family Medicine 11/28/24 Xochilt Gaston, ALARM SIGNALER.MANAGER CLINICAL RESEARCH [address] [place] [address] [facility] 06/03/24 Maggie Putnam MD [address] [place] [address] Internal Medicine 10/02/24 Ed Thomas, ALARM SIGNALER.MANAGER CLINICAL RESEARCH [address] [place] [address] [facility] 12/10/24 Mounika Trent, [facility] [address] [place], [place] [phone] Transitional Care Pharmacist Pharmacy 12/21/24 03/21/25 Human Resources Operations Director Relationship Specialty Start Date End Date Fredrick Boland DO [address] [place] [address] PCP - General Family Medicine 11/28/24 Xochilt Gaston, ALARM SIGNALER.MANAGER CLINICAL RESEARCH [address] [place] [address] [facility] 06/03/24 Maggie Putnam MD [address] [place] [address] Internal Medicine 10/02/24 Ed Thomas, ALARM SIGNALER.MANAGER CLINICAL RESEARCH [address] [place] [address] [facility] 12/10/24 [place] [address] Transitional Care Pharmacist Pharmacy 12/21/24 03/21/25 Human Resources Operations Director Relationship Specialty Start Date End Date Fredrick Boland DO [address] [place] [address] PCP - General Family Medicine 11/28/24 Xochilt Gaston, ALARM SIGNALER.MANAGER CLINICAL RESEARCH [address] [place] [address] [facility] 06/03/24 Maggie Putnam MD [address] [place] [address] Internal Medicine 10/02/24 Ed Thomas, ALARM SIGNALER.MANAGER CLINICAL RESEARCH [facility] [place] [address] [facility] 12/10/[address] [address] Transitional Care Pharmacist Pharmacy 12/21/24 03/21/25 Human Resources Operations Director Relationship Specialty Start Date End Date Fredrick Boland DO [address] [place] [address] PCP - General Family Medicine 11/28/24 Xochilt Gaston, ALARM SIGNALER.MANAGER CLINICAL RESEARCH [address] [place] [address] [facility] 06/03/24 Maggie Putnam MD [address] [place], [place] [id number] Internal Medicine 10/02/24 Ed Thomas, ALARM SIGNALER.MANAGER CLINICAL RESEARCH [address] [place], [place] 604181 [facility] 12/10/24 Mounika Trent, [facility] [address] [place] [phone] Transitional Care Pharmacist Pharmacy 12/21/24 03/21/25 Human Resources Operations Director Relationship Specialty Start Date End Date Fredrick Boland DO [address] [place] [address] PCP - General Family Medicine 11/28/24 Xochilt Gaston, ALARM SIGNALER.MANAGER CLINICAL RESEARCH [address] [place] [address] [facility] 06/03/24 Maggie Putnam MD [address] [place] [address] Internal Medicine 10/02/24 Ed Thomas, ALARM SIGNALER.MANAGER CLINICAL RESEARCH [address] [place], [place] 538351 [facility] 12/10/24 [facility] [address] [place] [address] Transitional Care Pharmacist Pharmacy 12/21/24 03/21/25 Human Resources Operations Director Relationship Specialty Start Date End Date Fredrick Boland DO [address] [place] [address] [id number] PCP - General Family Medicine 11/28/24 Xochilt Gaston, ALARM SIGNALER.MANAGER CLINICAL RESEARCH [address] [place] [address] [facility] 06/03/24 Maggie Putnam MD [address] [place] [address] Internal Medicine 10/02/24 Ed Thomas, ALARM SIGNALER.MANAGER CLINICAL RESEARCH [address] [place] [address] [facility] 12/10/24 [facility] [address] [place] [address] Transitional Care Pharmacist Pharmacy 12/21/24 03/21/25 Stephie Montoya MD [address] [place], [place] [phone] [facility] Provider Gastroenterology 01/22/25 Stephie Montoya MD [address] [place] [address] Home Parenteral Nutrition Provider Gastroenterology 01/22/25 Human Resources Operations Director Relationship Specialty Start Date End Date Fredrick Boland DO [address] [place] [address] PCP - General Family Medicine 11/28/24 Xochilt Gaston, ALARM SIGNALER.MANAGER CLINICAL RESEARCH [address] [place], [place] 987781 [facility] 06/03/24 Maggie Putnam MD [address] [place], [place] 660284 Internal Medicine 10/02/24 Ed Thomas, ALARM SIGNALER.MANAGER CLINICAL RESEARCH [address] [place] [address] [facility] 12/10/24 [facility] [address] [place] [address] Transitional Care Pharmacist Pharmacy 12/21/24 03/21/25 [place] [address] [place], [place] [phone] [facility] Gastroenterology 01/22/25 Stephie Montoya MD [address] [place] [address] Home Parenteral Nutrition Provider Gastroenterology 01/22/25 Human Resources Operations Director Relationship Specialty Start Date End Date Fredrick Boland DO [address] [place] [address] PCP - General Family Medicine 11/28/24 Xochilt Gaston, KAIN.MANAGER CLINICAL RESEARCH [address] [place] [address] [facility] 06/03/24 Maggie Putnam MD [address] [place] [address] Internal Medicine 10/02/24 Ed Thomas APRN.MANAGER CLINICAL RESEARCH [address] [place] [address] [facility] 12/10/24 [facility] [address] [place] [address] Transitional Care Pharmacist Pharmacy 12/21/24 03/21/25 Stephie Montoya MD [address] [place] [address] [facility] Gastroenterology 01/22/25 Stephie Montoya MD [address] [place] [address] Home Parenteral Nutrition Provider Gastroenterology 01/22/25 Human Resources Operations Director Relationship Specialty Start Date End Date Fredrick Boland DO [address] [place], [place] 955421 PCP - General Family Medicine 11/28/24 Xochilt Gaston, ALARM SIGNALER.MANAGER CLINICAL RESEARCH [address] [place], [place] 229961 [facility] 06/03/24 Maggie Putnam MD [address] [place] [address] Internal Medicine 10/02/24 Ed Thomas, ALARM SIGNALER.MANAGER CLINICAL RESEARCH [address] [place], [place] 993371 [facility] 12/10/24 [facility] [address] [place], [place] [phone] Transitional Care Pharmacist Pharmacy 12/21/24 03/21/25 Stephie Montoya MD [address] [place], [place] [phone] [facility] Gastroenterology 01/22/25 Stephie Montoya MD [address] [place] [address] Home Parenteral Nutrition Provider Gastroenterology 01/22/25 Human Resources Operations Director Relationship Specialty Start Date End Date Fredrick Boland DO [address] [place], [place] 984891 PCP - General Family Medicine 11/28/24 Xochilt Gaston ALARM SIGNALER.MANAGER CLINICAL RESEARCH [address] [place], [place] 845341 [facility] 06/03/24 Maggie Putnam MD [address] [place] [address] Internal Medicine 10/02/24 Ed Thomas, ALARM SIGNALER.MANAGER CLINICAL RESEARCH [address] [place] [address] [facility] 12/10/24 Mounika Trent, [facility] [address] [place] [address] Transitional Care Pharmacist Pharmacy 12/21/24 03/21/25 [place] [address] [place], [place] [phone] [facility] Gastroenterology 01/22/25 Stephie Montoya MD [address] [place], [place] [phone] Home Parenteral Nutrition Provider Gastroenterology 01/22/25 Human Resources Operations Director Relationship Specialty Start Date End Date Fredrick Boland DO [address] [place] [address] PCP - General Family Medicine 11/28/24 Xochilt Gaston APRN.MANAGER CLINICAL RESEARCH [address] [place] [address] [facility] 06/03/24 Maggie Putnam MD [address] [place] [address] Internal Medicine 10/02/24 Ed Thomas, ALARM SIGNALER.MANAGER CLINICAL RESEARCH [address] [place] [address] [facility] 12/10/24 Mounika Trent, [facility] [address] [place], [place] [phone] Transitional Care Pharmacist Pharmacy 12/21/24 03/21/25 Stephie Montoya MD [address] [place] [address] [place] [facility] Provider Gastroenterology 01/22/25 Stephie Montoya MD [address] [place] [address] Home Parenteral Nutrition Provider Gastroenterology 01/22/25 FOR RECORDS PERTAINING TO PATIENTS WHO ARE [...] BE BASED ON THE PRIMARY CLINICAL RECORDS. [facility]. provides no warranty or guarantee of the accuracy or completeness of information in this document.
== END | disposition home or self-care (01) ==
LOC: RAD 12:23
PROVIDERS: PCP Student in an Organized Health Care Education/Training Program; Referring Provider Nurse Practitioner Primary Care; Visit Provider Nurse Practitioner Primary Care
DX: E44.0 Moderate protein-calorie malnutrition (principal)

== ENCOUNTER 2025-02-14 10:00 | Outpatient (RCR) | payer MEDICAID, SELFPAY ==
[2025-01-31 10:04] VITALS: BP 99/78; PULSE 106; RESP 16; TEMP 36
--- NOTE | 2025-01-31 13:01 | PCM.WC.PN ---
History of Present Illness Date of Service: 01/31/25 Chief Complaint: Left medial calcaneal ulceration History of Wound: Patient is a 39-year-old female who was referred to the wound care center for continued care of her plantar medial ulceration of the left heel. Patient reports feeling ill and october 2024 and reported to the ED at [facility] where she was admitted and underwent abdominal surgery however developed complications with clot thrown to the left foot which resulted in necrosis of the digits of the foot in addition to necrosis of the plantar medial calcaneus. She did undergo transmetatarsal amputation on 11/15/[address] Arreaga. The TMA site did heal well however she continued local wound care in his office for the last 8 weeks without improvement. There has been applications of Ernestina and bacitracin ointment to the site. She continues to ambulate in surgical shoe as her insurance will not cover knee scooter. Does admit to tenderness at times to the heel secondary to the ulceration site. Patient denies diabetes and states all of her issues of this foot have been caused by an embolic shower which resulted in her amputation. She denies N/V/F/chills. Denies further complaints. Subjective Subjective This is a 39-year-old female who returns to the wound care center today for continued follow-up of a plantar medial left heel ulceration secondary to acute thrombotic event. She continues applying the collagen powder, hydrogel, and PHMB dressings as instructed daily. She states continued improvement with decreasing wound size. Denies constitutional symptoms. Denies further complaints. Objective Data Objective Data Vital Signs: Vital Signs Temp Pulse Resp BP 96.8 F L 106 H 16 99/78 01/31/25 10:04 01/31/25 10:04 01/31/25 10:01/31/25 10:04 Physical Exam Const alert, oriented x3 and no apparent distress General Appearance: cooperative HEENT normocephalic Eyes General Eye: normal appearance of both eyes Neck General: normal visual inspection Lymph Lymphatic: no lymphadenopathy noted and no lymphedema noted Resp normal respiratory effort Cardio regular rate and regular rhythm Extremity no calf tenderness Extremity Narrative: Left lower extremity: Vascular: DP and PT pulses palpable. CFT is less than 3 seconds to digits. Normal temperature gradient. Hair growth is present to digit. Neurologic: Epicritic sensation intact without focal deficit noted. Musculoskeletal: Muscle strength 5/5 and age-appropriate. Full range of motion of the ankle joint, STJ, MTJ, and first MTPJ appreciated. No pain to palpation of calf. Transmetatarsal amputation noted. There is some pain to palpation about the ulcerative site of the medial calcaneus. Dermatologic: Cicatrix appreciated at the transmetatarsal amputation stump. There is a full-thickness ulceration noted to the plantar medial aspect of the calcaneus with healthy granular layer. There is some dried crusting at the wound margins secondary to continued serosanguineous drainage. No purulent drainage, no malodor noted. No signs of infection. Skin no rashes or lesions noted Neuro moves all extremities Debridement Note Debridement Note Wound debrided: Left medial calcaneus Laterality: Left Wound Grade/Stage: Bhandari stage I Type of Debridement: Excisional debridement Anesthesia Used: 5% Lidocaine Gel and - (8 cc 1% lidocaine with epinephrine) Depth: Down to and including healthy tissue and in the subcutaneous layer Percentage of wound debrided: 100 Instrument Used: 5mm curette Tissue Removed: Fibrous, devitalized subcutaneous, biofilm, slough Severity: Fat Layer Exposed Amount of bleeding with debridement: Mild Bleeding Controlled with: Compression and gauze Patient tolerated procedure: Patient tolerated procedure well Post-Debridement Measurements and Additional Note: Post-Debridement Measurements/Treatment - Nurse 1 - General Ulcer Assessment Start: 01/31/25 10:01 Freq: Status: Active Protocol: [email or web address] Activity Type Activity Date Activity User E-sign Co-sign Detail Recorded Client Recorded Date Recorded By Document 01/31/25 10:04 EZ [id number] 01/31/25 10:08 DL 01/31/25 10:04 - Today's Visit Information Type of service 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 Any new allergies or adverse reactions No Had a fall/change in ADL's that may No increase risk of falls Signs or symptoms of abuse and/or No neglect since last visit Have you been in the hospital since your No last visit? Has dressing in place as prescribed Yes Has compression in place as prescribed Yes Has offloadiing in place as prescribed Yes Experienced any changes in pain level or No management Left Footwear Surgical Shoe with pressure relief insole Pain Scale: 0-10 Numeric Is Patient Pain Free? Yes WC - Nurse 1 - General Ulcer Measurement Start: 01/31/25 10:01 Freq: Status: Active Protocol: Activity Type Activity Date Activity User E-sign Co-sign Detail Recorded Client Recorded Date Recorded By Document 01/31/25 10:04 DL [id number] 01/31/25 10:08 DL 01/31/25 10:04 Wound Center Nurse 1 #1 L Heel -Current Size (cm) - Length 2.5 -Current Size (cm) - Width 1.6 -Current Size (cm) - Depth 0.1 -Total Square Cm 4.00 -Photo Taken Yes -Exudate Amt Medium -Exudate Type Serosanguineous -Wound Margin Distinct, Outline Attached -Granulation Amt Large (67-100%) -Granulation Quality Red -Necrosis Amt Small (1-33%) -Necrotic Tissue Type Adherent Slough -Structure Exposed N/A -Texture (Bryanna-wound Skin Appearance) Scarring -Moisture (Bryanna-wound Skin Appearance) Dry/Scaly -Color (Bryanna-wound Skin Appearance) No Abnormality -Temperature (Bryanna-wound Skin No Abnormality Appearance) (Pt Warm) -Ulcer Cleansing Soap and Water -Foul Odor after Cleansing No -Anesthetic Used 5% Lidocaine Gel WC - Nurse 2 - General Ulcer CM Notes Start: 01/31/25 10:01 Freq: Status: Active Protocol: Activity Type Activity Date Activity User E-sign Co-sign Detail Recorded Client Recorded Date Recorded By Document 01/31/25 11:24 DS [id number] 01/31/25 11:24 DS 01/31/25 11:24 Wound Center Nurse 2 -Time 11:24 -Correct Patient Yes -Correct Side, Site, Position Yes -Correct Procedure Yes -Procedure Performed Yes -Type of Procedure Debridement -Clinical Debridement Subcutaneous -Tissue Removed Subcutaneous -Post Debridement (cm) - Length 1.9 -Post Debridement (cm) - Width 2.2 -Post Debridement (cm) - Depth 0.1 -Total Square (Post) (cm) 4.18 -Area of Debridement (cm) - Length 1.9 -Area of Debridement (cm) - Width 2.2 -Total Square (Area) (cm) 4.18 -Tunneling No -Undermining/Tunneling No -Circular Undermining No -Wound/Ulcer Outcome Not Healed -Ulcer Cleansing Rinsed/ Irrigated with Saline -Foul Odor after Cleansing No -Bioengineered Tissue No -Injectable Lidocaine w/ Epi (%) 1 -Injectable Lidocaine w/ Epi (mls) 10 -Bleeding Controlled with Pressure -Debridement - Subq, 1st 20sq cm Yes Pain Scale: 0-10 Numeric Is Patient Pain Free? Yes - Nurse 3 - General Ulcer D/C NN Start: 01/31/25 10:01 Freq: Status: Active Protocol: Activity Type Activity Date Activity User E-sign Co-sign Detail Recorded Client Recorded Date Recorded By Document 01/31/25 11:39 DL [id number] 01/31/25 11:40 DL 01/31/25 11:39 Wound Care Center Nurse 3 #1 L Heel -Ulcer Cleansing Rinsed/ Irrigated with Saline -Foul Odor after Cleansing No -Primary Dressing Applied AMD Dressing 4x4,Collagen Powder -Other Dressing Hydrogel -Primary Dressing Covered/Secured with Dry Gauze & Roll Gauze, Secured with Tape -Other Covering Nurse hat/ [place] -AMD Dressing 4x4 1 -Collagen Powder 1 Treatment Response Procedure Tolerated Well Pain Scale: 0-10 Numeric Is Patient Pain Free? 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 Collagen powder moistened with hydrogel and PHMB dressing applied to the ulcerative site and dressed with dry sterile dressing. She is to change dressing daily. There is continued reduction in the length the width versus her previous visit. Ulceration is noted to be healing well with current treatment regiment. Discussed nonweightbearing status of the left lower extremity. Insurance has denied knee scooter and she cannot afford to rent or pay [id number]. She does have a walker and I have suggested she return to use of the walker with her surgical shoe for the nonweightbearing status. Discussed continued adequate protein intake to aid in wound healing. Tacho supplementation was also recommended. Ulceration is secondary to acute ischemic event in relation to her previous abdominal surgery. Discussed signs and symptoms of infection. Discussed if she notices increasing redness around the ulcerative site that moves up the leg, purulent drainage from the wound site, increasing foul odor from the wound site, or if she experiences fever greater than 101 degree accompanied by nausea, vomiting, chills that these are signs of a progressing infection and she should report to the ED for IV antibiotics and further evaluation. She is understanding of this. The following work up and care recommendations were made: Dressing: Collagen powder, hydrogel, PHMB foam, dry sterile dressing. Change dressing daily. Wash: Soap and water Tissue growth optimization: Collagen powder and hydrogel and PHMB foam Offload: Remain nonweightbearing to the left lower extremity with assistance of walker Vascular: DP and PT pulses palpable. Adequate cap fill to digits. Vascular status is not impacting healing however ulceration is secondary to an acute thrombotic event and she is currently on anticoagulant therapy. Edema: None Infection: No signs of infection Pain: Continue extra strength Tylenol for discomfort as she is currently on anticoagulant therapy. Host factors: Acute ischemic event, otherwise no factors to impede healing. I answered all the patient's questions. To return to the wound healing center in 1 week or call sooner if the patient has any questions or concerns.
[2025-02-07 10:10] VITALS: BP 106/77; PULSE 111; RESP 16; TEMP 36.2
--- NOTE | 2025-02-07 12:58 | PN.PCM_ITS ---
History of Present Illness Date of Service: 02/07/25 Chief Complaint: Left medial calcaneal ulceration History of Wound: Patient is a 39-year-old female who was referred to the wound care center for continued care of her plantar medial ulceration of the left heel. Patient reports feeling ill and october 2024 and reported to the ED at [facility] where she was admitted and underwent abdominal surgery however developed complications with clot thrown to the left foot which resulted in necrosis of the digits of the foot in addition to necrosis of the plantar medial calcaneus. She did undergo transmetatarsal amputation on 11/15/[address] Arreaga. The TMA site did heal well however she continued local wound care in his office for the last 8 weeks without improvement. There has been applications of Ernestina and bacitracin ointment to the site. She continues to ambulate in surgical shoe as her insurance will not cover knee scooter. Does admit to tenderness at times to the heel secondary to the ulceration site. Patient denies diabetes and states all of her issues of this foot have been caused by an embolic shower which resulted in her amputation. She denies N/V/F/chills. Denies further complaints. Subjective Subjective This is a 39-year-old female who returns to the wound care center today for continued follow-up of a plantar medial left heel ulceration secondary to acute thrombotic event. She continues applying the collagen powder, hydrogel, and PHMB dressings as instructed daily. She states continued improvement with decreasing wound size. States site continues to look good. Denies constitutional symptoms. Denies further complaints. Objective Data Objective Data Vital Signs: Vital Signs Temp Pulse Resp BP 97.2 F L 111 H 16 106/77 02/07/25 10:10 02/07/25 10:10 02/07/25 10:10 02/07/25 10:10 Physical Exam Const alert, oriented x3 and no apparent distress General Appearance: cooperative HEENT normocephalic Eyes General Eye: normal appearance of both eyes Neck General: normal visual inspection Lymph Lymphatic: no lymphadenopathy noted and no lymphedema noted Resp normal respiratory effort Cardio regular rate and regular rhythm Extremity no calf tenderness Extremity Narrative: Left lower extremity: Vascular: DP and PT pulses palpable. CFT is less than 3 seconds to digits. Normal temperature gradient. Hair growth is present to digit. Neurologic: Epicritic sensation intact without focal deficit noted. Musculoskeletal: Muscle strength 5/5 and age-appropriate. Full range of motion of the ankle joint, STJ, MTJ, and first MTPJ appreciated. No pain to palpation of calf. Transmetatarsal amputation noted. There is some pain to palpation about the ulcerative site of the medial calcaneus. Dermatologic: Cicatrix appreciated at the transmetatarsal amputation stump. There is a full-thickness ulceration noted to the plantar medial aspect of the calcaneus with healthy granular layer. There is some dried crusting at the wound margins secondary to continued serosanguineous drainage. No purulent drainage, no malodor noted. No signs of infection. Skin no rashes or lesions noted Neuro moves all extremities Debridement Note Debridement Note Wound debrided: Left plantar medial calcaneus Laterality: Left Wound Grade/Stage: Bhandari stage I Type of Debridement: Excisional debridement Anesthesia Used: 5% Lidocaine Gel and - (6 cc 1% lidocaine with epinephrine) Depth: Down to and including healthy tissue, in the subcutaneous layer and to muscle Percentage of wound debrided: 100 Instrument Used: 5mm curette Tissue Removed: Fibrous, devitalized subcutaneous, biofilm, slough Severity: Fat Layer Exposed Amount of bleeding with debridement: Mild Bleeding Controlled with: Compression and gauze Patient tolerated procedure: Patient tolerated procedure well Post-Debridement Measurements and Additional Note: Post-Debridement Measurements/Treatment - Nurse 1 - General Ulcer Assessment Start: 01/31/25 10:01 Freq: Status: Active Protocol: [email or web address] Activity Type Activity Date Activity User E-sign Co-sign Detail Recorded Client Recorded Date Recorded By Document 01/31/25 10:04 DL [id number] 01/31/25 10:08 DL Document 02/07/25 10:10 DL [id number] 02/07/25 10:16 DL 01/31/25 02/07/25 10:04 10:10 - Today's Visit Information Type of service Follow-up Visit Follow-up Visit (Physician/AIRCRAFT LIFE SUPPORT FITTER (Physician/AIRCRAFT LIFE SUPPORT FITTER ) ) Arrival Mode Ambulatory, Ambulatory Wheelchair Transfer Assistance None None Patient Identification Verified (Name & Yes Yes ) Patient Requires Transmission-Based No No Precautions Vital Signs Temperature (97.8 F-99.1 F) 96.8 F L 97.2 F L Temperature Source Temporal Temporal Pulse Rate (60-100) 106 H 111 H Pulse Location Monitor Monitor Respiratory Rate (12-18) 16 16 Respiratory rate source Observation Observation Blood Pressure (90/60-120/80) 99/78 106/77 Blood Pressure Mean (mm Hg) 85 86 Source Monitor Monitor History Since Last Visit- (Skip if this is Patient's initial visit) Have you changed medications since your No No last visit? Any new allergies or adverse reactions No No Had a fall/change in ADL's that may No No increase risk of falls Signs or symptoms of abuse and/or No No neglect since last visit Have you been in the hospital since your No No last visit? Has dressing in place as prescribed Yes Yes Has compression in place as prescribed Yes Yes Has offloadiing in place as prescribed Yes No Experienced any changes in pain level or No management Left Footwear Surgical Shoe with pressure relief insole Right Footwear Surgical Shoe with pressure relief insole Pain Scale: 0-10 Numeric Is Patient Pain Free? Yes Yes WC - Nurse 1 - General Ulcer Measurement Start: 01/31/25 10:01 Freq: Status: Active Protocol: Activity Type Activity Date Activity User E-sign Co-sign Detail Recorded Client Recorded Date Recorded By Document 01/31/25 10:04 DL [id number] 01/31/25 10:08 DL Document 02/07/25 10:10 DL [id number] 02/07/25 10:16 DL 01/31/25 02/07/25 10:04 10:10 Wound Center Nurse 1 #1 L Heel -Current Size (cm) - Length 2.5 2.4 -Current Size (cm) - Width 1.6 1.4 -Current Size (cm) - Depth 0.1 0.2 -Total Square Cm 4.00 3.36 -Photo Taken Yes Yes -Exudate Amt Medium Small -Exudate Type Serosanguineous Serosanguineous -Wound Margin Distinct, Thickened Outline Attached -Granulation Amt Large (67-100%) Medium (34-66%) -Granulation Quality Red [place] -Necrosis Amt Small (1-33%) Medium (34-66%) -Necrotic Tissue Type Adherent Slough Adherent Slough -Structure Exposed N/A N/A -Texture (Bryanna-wound Skin Appearance) Scarring Callus,Scarring -Moisture (Bryanna-wound Skin Appearance) Dry/Scaly Dry/Scaly -Color (Bryanna-wound Skin Appearance) No Abnormality No Abnormality -Temperature (Bryanna-wound Skin No Abnormality No Abnormality Appearance) (Pt Warm) (Pt Warm) -Tenderness on Palpation (Bryanna-wound No Skin Appearance) -Ulcer Cleansing Soap and Water Soap and Water -Foul Odor after Cleansing No No -Anesthetic Used 5% Lidocaine 5% Lidocaine Gel Gel TARAH - Nurse 2 - General Ulcer CM Notes Start: 01/31/25 10:01 Freq: Status: Active Protocol: Activity Type Activity Date Activity User E-sign Co-sign Detail Recorded Client Recorded Date Recorded By Document 01/31/25 11:24 DS [id number] 01/31/25 11:24 DS Document 02/07/25 11:08 [facility] [id number] 02/07/25 11:16 BM 01/31/25 02/07/25 11:24 11:08 Wound Center Nurse 2 #1 L Heel -Time 11:24 11:08 -Correct Patient Yes Yes -Correct Side, Site, Position Yes Yes -Correct Procedure Yes Yes -Procedure Performed Yes Yes -Type of Procedure Debridement Debridement -Clinical Debridement Subcutaneous Muscle / Fascia -Tissue Removed Subcutaneous Muscle,Fascia -Post Debridement (cm) - Length 1.9 1.6 -Post Debridement (cm) - Width 2.2 2 -Post Debridement (cm) - Depth 0.1 0.1 -Total Square (Post) (cm) 4.18 3.2 -Area of Debridement (cm) - Length 1.9 1.6 -Area of Debridement (cm) - Width 2.2 2 -Total Square (Area) (cm) 4.18 3.2 -Tunneling No No -Undermining/Tunneling No No -Circular Undermining No No -Wound/Ulcer Outcome Not Healed Not Healed -Ulcer Cleansing Rinsed/ Rinsed/ Irrigated with Irrigated with Saline Saline -Foul Odor after Cleansing No No -Bioengineered Tissue No No -Injectable Lidocaine w/ Epi (%) 1 1 -Injectable Lidocaine w/ Epi (mls) 10 4 -Bleeding Controlled with Pressure Pressure -Treatment Response Procedure Tolerated Well -Debridement - Subq, 1st 20sq cm Yes -Debridement - Muscle / Fascia, 1st Yes 20sq cm Pain Scale: 0-10 Numeric Is Patient Pain Free? Yes Yes WC - Nurse 3 - General Ulcer D/C NN Start: 01/31/25 10:01 Freq: Status: Active Protocol: Activity Type Activity Date Activity User E-sign Co-sign Detail Recorded Client Recorded Date Recorded By Document 01/31/25 11:39 DL [id number] 01/31/25 11:40 DL Document 02/07/25 11:33 [place] [id number] 02/07/25 11:35 MT 01/31/25 02/07/25 11:39 11:33 Wound Care Center Nurse 3 #1 L Heel -Ulcer Cleansing Rinsed/ Irrigated with Saline -Foul Odor after Cleansing No No -Negative Pressure Wound Therapy N/A -Primary Dressing Applied AMD Dressing AMD Dressing 4x4,Collagen 4x8,Collagen Powder Powder -Other Dressing Hydrogel -Primary Dressing Covered/Secured with Dry Gauze & Dry Gauze & Roll Gauze, Roll Gauze, Secured with Secured with Tape Tape -Other Covering Nurse hat/ [place] -AMD Dressing 4x4 1 -AMD Dressing 4x8 1 -Collagen Powder 1 1 -Wound Comment(s) collagen powder , hydrogel, AMD pad, abd, kerlix Treatment Response Procedure Tolerated Well Pain Scale: 0-10 Numeric Is Patient Pain Free? 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 Collagen powder moistened with hydrogel and PHMB dressing applied to the ulcerative site and dressed with dry sterile dressing. She is to change dressing daily. There is continued reduction in the length the width versus her previous visit. Ulceration is noted to be healing well with current treatment regiment. Discussed nonweightbearing status of the left lower extremity. Insurance has denied knee scooter and she cannot afford to rent or pay [id number]. She d oes have a walker and I have suggested she return to use of the walker with her surgical shoe for the nonweightbearing status. Discussed continued adequate protein intake to aid in wound healing. Tacho supplementation was also recommended. Ulceration is secondary to acute ischemic event in relation to her previous abdominal surgery. Discussed signs and symptoms of infection. Discussed if she notices increasing redness around the ulcerative site that moves up the leg, purulent drainage from the wound site, increasing foul odor from the wound site, or if she experiences fever greater than 101 degree accompanied by nausea, vomiting, chills that these are signs of a progressing infection and she should report to the ED for IV antibiotics and further evaluation. She is understanding of this. The following work up and care recommendations were made: Dressing: Collagen powder, hydrogel, PHMB foam, dry sterile dressing. Change dressing daily. Wash: Soap and water Tissue growth optimization: Collagen powder and hydrogel and PHMB foam Offload: Remain nonweightbearing to the left lower extremity with assistance of walker Vascular: DP and PT pulses palpable. Adequate cap fill to digits. Vascular status is not impacting healing however ulceration is secondary to an acute thrombotic event and she is currently on anticoagulant therapy. Edema: None Infection: No signs of infection Pain: Continue extra strength Tylenol for discomfort as she is currently on anticoagulant therapy. Host factors: Acute ischemic event, otherwise no factors to impede healing. I answered all the patient's questions. To return to the wound healing center in 1 week or call sooner if the patient has any questions or concerns.
--- NOTE | 2025-02-08 09:25 | WC ---
PHOTO-LEFT HEEL 02/07/25
[2025-02-14 09:59] VITALS: BP 95/71; PULSE 101; RESP 18; TEMP 36.2
--- NOTE | 2025-02-14 12:06 | PN.PCM_ITS ---
History of Present Illness Date of Service: 02/14/25 Chief Complaint: Left medial calcaneal ulceration History of Wound: Patient is a 39-year-old female who was referred to the wound care center for continued care of her plantar medial ulceration of the left heel. Patient reports feeling ill and october 2024 and reported to the ED at [facility] where she was admitted and underwent abdominal surgery however developed complications with clot thrown to the left foot which resulted in necrosis of the digits of the foot in addition to necrosis of the plantar medial calcaneus. She did undergo transmetatarsal amputation on 11/15/[address] Arreaga. The TMA site did heal well however she continued local wound care in his office for the last 8 weeks without improvement. There has been applications of Ernestina and bacitracin ointment to the site. She continues to ambulate in surgical shoe as her insurance will not cover knee scooter. Does admit to tenderness at times to the heel secondary to the ulceration site. Patient denies diabetes and states all of her issues of this foot have been caused by an embolic shower which resulted in her amputation. She denies N/V/F/chills. Denies further complaints. Subjective Subjective This is a 39-year-old female who returns to the wound care center today for continued follow-up of a plantar medial left heel ulceration secondary to acute thrombotic event. She continues applying the collagen powder, hydrogel, and PHMB dressings as instructed daily. She states continued improvement with decreasing wound size. States site continues to look good. She admits she has been walking on the site more than she should. Denies constitutional symptoms. Denies further complaints. Objective Data Objective Data Vital Signs: Vital Signs Temp Pulse Resp BP 97.1 F L 101 H 18 95/71 02/14/25 09:59 02/14/25 09:59 02/14/25 09:59 02/14/25 09:59 Physical Exam Const alert, oriented x3 and no apparent distress General Appearance: cooperative HEENT normocephalic Eyes General Eye: normal appearance of both eyes Neck General: normal visual inspection Lymph Lymphatic: no lymphadenopathy noted and no lymphedema noted Resp normal respiratory effort Cardio regular rate and regular rhythm Extremity no calf tenderness Extremity Narrative: Left lower extremity: Vascular: DP and PT pulses palpable. CFT is less than 3 seconds to digits. Normal temperature gradient. Hair growth is present to digit. Neurologic: Epicritic sensation intact without focal deficit noted. Musculoskeletal: Muscle strength 5/5 and age-appropriate. Full range of motion of the ankle joint, STJ, MTJ, and first MTPJ appreciated. No pain to palpation of calf. Transmetatarsal amputation noted. There is some pain to palpation about the ulcerative site of the medial calcaneus. Dermatologic: Cicatrix appreciated at the transmetatarsal amputation stump. There is a full-thickness ulceration noted to the plantar medial aspect of the calcaneus with healthy granular layer. There is some dried crusting at the wound margins secondary to continued serosanguineous drainage. No purulent drainage, no malodor noted. No signs of infection. Skin no rashes or lesions noted Neuro moves all extremities Debridement Note Debridement Note Wound debrided: Left plantar medial calcaneus Laterality: Left Wound Grade/Stage: Bhandari stage I Type of Debridement: Excisional debridement Anesthesia Used: 5% Lidocaine Gel Depth: Down to and including healthy tissue and in the subcutaneous layer Percentage of wound debrided: 100 Instrument Used: 5mm curette Tissue Removed: Fibrous, devitalized subcutaneous, biofilm, slough Severity: Fat Layer Exposed Amount of bleeding with debridement: Mild Bleeding Controlled with: Compression and gauze Patient tolerated procedure: Patient tolerated procedure well Post-Debridement Measurements and Additional Note: Post-Debridement Measurements/Treatment - Nurse 1 - General Ulcer Assessment Start: 01/31/25 10:01 Freq: Status: Active Protocol: TARAH.LOWEXT Activity Type Activity Date Activity User E-sign Co-sign Detail Recorded Client Recorded Date Recorded By Document 01/31/25 10:04 DL [id number] 01/31/25 10:08 DL Document 02/07/25 10:10 DL [id number] 02/07/25 10:16 DL Document 02/14/25 09:59 DL [id number] 02/14/25 10:06 DL 01/31/25 02/07/25 02/14/25 10:04 10:10 09:59 - Today's Visit Information Type of service Follow-up Visit Follow-up Visit Follow-up Visit (Physician/SALES ORDER ADMINISTRATOR (Physician/SALES ORDER ADMINISTRATOR (Physician/SALES ORDER ADMINISTRATOR ) ) ) Arrival Mode Ambulatory, Ambulatory Ambulatory Wheelchair Transfer Assistance None None None Patient Identification Verified (Name & Yes Yes Yes ) Patient Requires Transmission-Based No No No Precautions Vital Signs Temperature (97.8 F-99.1 F) 96.8 F L 97.2 F L 97.1 F L Temperature Source Temporal Temporal Temporal Pulse Rate (60-100) 106 H 111 H 101 H Pulse Location Monitor Monitor Respiratory Rate (12-18) 16 16 18 Respiratory rate source Observation Observation Observation Blood Pressure (90/60-120/80) 99/78 106/77 95/71 Blood Pressure Mean (mm Hg) 85 86 79 Source Monitor Monitor History Since Last Visit- (Skip if this is Patient's initial visit) Have you changed medications since your No No No last visit? Any new allergies or adverse reactions No No No Had a fall/change in ADL's that may No No No increase risk of falls Signs or symptoms of abuse and/or No No No neglect since last visit Have you been in the hospital since your No No No last visit? Has dressing in place as prescribed Yes Yes Yes Has compression in place as prescribed Yes Yes Yes Has offloadiing in place as prescribed Yes No Yes Experienced any changes in pain level or No No management Left Footwear Surgical Shoe with pressure relief insole Right Footwear Surgical Shoe with pressure relief insole Pain Scale: 0-10 Numeric Is Patient Pain Free? Yes Yes Yes WC - Nurse 1 - General Ulcer Measurement Start: 01/31/25 10:01 Freq: Status: Active Protocol: Activity Type Activity Date Activity User E-sign Co-sign Detail Recorded Client Recorded Date Recorded By Document 01/31/25 10:04 DL [id number] 01/31/25 10:08 DL Document 02/07/25 10:10 DL [id number] 02/07/25 10:16 DL Document 02/14/25 09:59 DL [id number] 02/14/25 10:06 DL 01/31/25 02/07/25 02/14/25 10:04 10:10 09:59 Wound Center Nurse 1 #1 L Heel -Current Size (cm) - Length 2.5 2.4 2.2 -Current Size (cm) - Width 1.6 1.4 1 -Current Size (cm) - Depth 0.1 0.2 0.1 -Total Square Cm 4.00 3.36 2.2 -Photo Taken Yes Yes Yes -Exudate Amt Medium Small Medium -Exudate Type Serosanguineous Serosanguineous Serous -Wound Margin Distinct, Thickened Thickened Outline Attached -Granulation Amt Large (67-100%) Medium (34-66%) Large (67-100%) -Granulation Quality Red [place] -Necrosis Amt Small (1-33%) Medium (34-66%) None Present (0 %) -Necrotic Tissue Type Adherent Slough Adherent Slough -Structure Exposed N/A N/A N/A -Texture (Bryanna-wound Skin Appearance) Scarring Callus,Scarring Scarring -Moisture (Bryanna-wound Skin Appearance) Dry/Scaly Dry/Scaly Dry/Scaly -Color (Bryanna-wound Skin Appearance) No Abnormality No Abnormality No Abnormality -Temperature (Bryanna-wound Skin No Abnormality No Abnormality No Abnormality Appearance) (Pt Warm) (Pt Warm) (Pt Warm) -Tenderness on Palpation (Bryanna-wound No No Skin Appearance) -Ulcer Cleansing Soap and Water Soap and Water Soap and Water -Foul Odor after Cleansing No No No -Anesthetic Used 5% Lidocaine 5% Lidocaine 5% Lidocaine Gel Gel Gel WC - Nurse 2 - General Ulcer CM Notes Start: 01/31/25 10:01 Freq: Status: Active Protocol: Activity Type Activity Date Activity User E-sign Co-sign Detail Recorded Client Recorded Date Recorded By Document 01/31/25 11:24 [id number] 01/31/25 11:24 Document 02/07/25 11:08 [facility] [id number] 02/07/25 11:16 [facility] Document 02/14/25 10:34 [facility] [id number] 02/14/25 10:45 [facility] 01/31/25 02/07/25 02/14/25 11:24 11:08 10:34 Wound Center Nurse 2 #1 L Heel -Time 11:24 11:08 10:34 -Correct Patient Yes Yes Yes -Correct Side, Site, Position Yes Yes Yes -Correct Procedure Yes Yes Yes -Procedure Performed Yes Yes Yes -Type of Procedure Debridement Debridement Debridement -Clinical Debridement Subcutaneous Muscle / Fascia Subcutaneous -Tissue Removed Subcutaneous Muscle,Fascia Subcutaneous -Post Debridement (cm) - Length 1.9 1.6 2 -Post Debridement (cm) - Width 2.2 2 1.5 -Post Debridement (cm) - Depth 0.1 0.1 0.1 -Total Square (Post) (cm) 4.18 3.2 3.0 -Area of Debridement (cm) - Length 1.9 1.6 2 -Area of Debridement (cm) - Width 2.2 2 1.5 -Total Square (Area) (cm) 4.18 3.2 3.0 -Tunneling No No No -Undermining/Tunneling No No No -Circular Undermining No No No -Wound/Ulcer Outcome Not Healed Not Healed Not Healed -Ulcer Cleansing Rinsed/ Rinsed/ Rinsed/ Irrigated with Irrigated with Irrigated with Saline Saline Saline -Foul Odor after Cleansing No No No -Bioengineered Tissue No No No -Injectable Lidocaine w/ Epi (%) 1 1 -Injectable Lidocaine w/ Epi (mls) 10 4 -Bleeding Controlled with Pressure Pressure Pressure -Treatment Response Procedure Procedure Tolerated Well Tolerated Well -Debridement - Subq, 1st 20sq cm Yes Yes -Debridement - Muscle / Fascia, 1st Yes 20sq cm Pain Scale: 0-10 Numeric Is Patient Pain Free? Yes Yes Yes WC - Nurse 3 - General Ulcer D/C NN Start: 01/31/25 10:01 Freq: Status: Active Protocol: Activity Type Activity Date Activity User E-sign Co-sign Detail Recorded Client Recorded Date Recorded By Document 01/31/25 11:39 DL [id number] 01/31/25 11:40 DL Document 02/07/25 11:33 MT [id number] 02/07/25 11:35 MT Document 02/14/25 11:33 [facility] [id number] 02/14/25 11:35 BM 01/31/25 02/07/25 02/14/25 11:39 11:33 11:33 Wound Care Center Nurse 3 #1 L Heel -Ulcer Cleansing Rinsed/ Rinsed/ Irrigated with Irrigated with Saline Saline -Foul Odor after Cleansing No No No -Negative Pressure Wound Therapy N/A -Primary Dressing Applied AMD Dressing AMD Dressing C Hydrogel 4x4,Collagen 4x8,Collagen Powder Powder -Other Dressing Hydrogel collagen powder , amd foam -Primary Dressing Covered/Secured with Dry Gauze & Dry Gauze & Secured with Roll Gauze, Roll Gauze, Tape Secured with Secured with Tape Tape -Other Covering Nurse hat/ ELMIRA kerlix; offload felt pad per dr leung -AMD Dressing 4x4 1 -AMD Dressing 4x8 1 -Collagen Powder 1 1 -Hydrogel 1 -Wound Comment(s) collagen powder , hydrogel, AMD pad, abd, kerlix Treatment Response Procedure Procedure Tolerated Well Tolerated Well Pain Scale: 0-10 Numeric Is Patient Pain Free? Yes Yes Yes WC - Visit Discharge Discharge Condition Stable Stable Ambulatory Status Ambulatory Ambulatory Transportation Private Auto Private Auto Assessment/Plan Assessment/Plan (1) Ischemic ulcer of left heel with fat layer exposed: CODE(S): L97.422 - Non-pressure chronic ulcer of left heel and midfoot with fat layer exposed (2) Pain in left foot: CODE(S): M79.672 - Pain in left foot (3) History of transmetatarsal amputation of left foot: CODE(S): Z89.432 - Acquired absence of left foot PLAN: Plan Patient seen and evaluated Predebridement measurement: 1.4 cm x 1.9 cm x 0.1 cm Postdebridement measurement: 1.5 cm x 2.0 cm x 0.1 cm Ulceration underwent debridement as noted in the clinical panel above. Collagen powder moistened with hydrogel and PHMB dressing applied to the ulcerative site and dressed with dry sterile dressing. She is to change dressing daily. There is continued reduction in the length and the width versus her previous visit. Ulceration is noted to be healing well with current treatment regiment. Discussed nonweightbearing status of the left lower extremity. Insurance has denied knee scooter and she cannot afford to rent or pay [id number]. She does have a walker and I have suggested she return to use of the walker with her surgical shoe for the nonweightbearing status. However due to her currently ambulating with surgical shoe additional felt offloading padding was placed about the heel over top of the PHMB foam dressing to allow the ulcerative site to float inside of the dressing. Discussed continued adequate protein intake to aid in wound healing. Tacho supplementation was also recommended. Ulceration is secondary to acute ischemic event in relation to her previous abdominal surgery. Discussed signs and symptoms of infection. Discussed if she notices increasing redness around the ulcerative site that moves up the leg, purulent drainage from the wound site, increasing foul odor from the wound site, or if she experiences fever greater than 101 degree accompanied by nausea, vomiting, chills that these are signs of a progressing infection and she should report to the ED for IV antibiotics and further evaluation. She is understanding of this. The following work up and care recommendations were made: Dressing: Collagen powder, hydrogel, PHMB foam, felt offloading padding and dry sterile dressing. Change dressing daily. Wash: Soap and water Tissue growth optimization: Collagen powder and hydrogel and PHMB foam Offload: Remain nonweightbearing to the left lower extremity with assistance of walker Vascular: DP and PT pulses palpable. Adequate cap fill to digits. Vascular status is not impacting healing however ulceration is secondary to an acute thrombotic event and she is currently on anticoagulant therapy. Edema: None Infection: No signs of infection Pain: Continue extra strength Tylenol for discomfort as she is currently on anticoagulant therapy. Host factors: Acute ischemic event, otherwise no factors to impede healing. I answered all the patient's questions. To return to the wound healing center in 1 week or call sooner if the patient has any questions or concerns.
--- NOTE | 2025-02-15 08:28 | WC ---
PHOTO-LEFT HEEL 02/14/25
== END 2025-02-24 23:59 | disposition home or self-care (01) ==
LOC: WC 10:00
PROVIDERS: PCP Student in an Organized Health Care Education/Training Program; Referring Provider Podiatrist Foot & Ankle Surgery; Visit Provider Student in an Organized Health Care Education/Training Program
DX: L97.422 Non-pressure chronic ulcer of left heel and midfoot with fat layer exposed (principal); Z89.432 Acquired absence of left foot; M79.672 Pain in left foot
CPT/HCPCS: 11042; 11043

== ENCOUNTER 2025-02-19 16:00 | Inpatient (IN) | payer MEDICAID, SELFPAY ==
[2025-02-19 16:01] VITALS: BP 105/77; PULSE 98; RESP 16; TEMP 36.8; O2SAT 99
[2025-02-19 16:40] VITALS: BMI 28.2
--- NOTE | 2025-02-19 17:48 | EX.ED.DYSGE1 ---
HPI History of Present Illness Chief Complaint: Weakness Narrative Narrative: Patient is a 39-year-old female with past medical history of bipolar disorder, borderline personality disorder, anxiety, depression, bowel obstruction who she states was life flighted for emergent surgery recently had reanastomose surgery of her intestines. States that 2 days later after surgery for her bowel obstruction originally she developed blood clots and developed compartment syndrome went to the OR for emergent surgery of her legs. States that from there she developed gangrene of her toes in the left side therefore they amputated these and notes that she has a wound healing from that standpoint. She states that yesterday she started having some lower extremity weakness and today she states that she had extreme weakness in her lower extremities and cannot walk. She states that she is having severe pain in her thighs as well. Patient denies any known sick contacts or any other injuries. Patient states that she has been urinating normally for self and having normal bowel movements. Patient states that she has a history of IV drug use about 20 years ago but states that she has not used IV drugs since then [facility] Medical History Depression Former smoker Ischemic necrosis of toe Sepsis Hx of blood clots Diarrhea Anxiety Tobacco use Borderline personality disorder Obesity Bipolar disorder Home Medications ?Medication ?Instructions ?Recorded ?Last Taken ?Type escitalopram oxalate 20 mg tablet 30 mg PO DAILY ASK PCP 04/27/22 06/19/23 History olanzapine 20 mg tablet 20 mg PO QHS ASK PCP 06/20/23 06/19/23 History omeprazole 40 mg capsule,delayed 40 mg PO DAILY PRN reflux 06/20/23 06/19/23 History release potassium chloride 20 mEq 40 meq (2 x 20 mEq) PO DAILYCM k+ 11/16/24 Unknown Rx tablet,extended release(part/cryst) replace #60 tabs warfarin 5 mg tablet 2.5 mg PO QHS 01/17/25 Unknown History Allergy/AdvReac Type Severity Reaction Status Date / Time acetaminophen (From Percocet) AdvReac Abd Verified 02/19/25 16:05 cramps/diarrhea hydrocodone (From Vicodin) AdvReac Abd Verified 02/19/25 16:05 cramps/diarrhea oxycodone (From Percocet) AdvReac Abd Verified 02/19/25 16:05 cramps/diarrhea Family History Other Heart disease Surgical History History of creation of ostomy Hx of cholecystectomy H/O section History of carpal tunnel surgery Social History Smoking Status: Former smoker substance use type: does not use ROS ROS ED ROS Narrative Constitutional: Denies any fevers, chills, headaches Eyes: Denies double vision Cardiovascular: Denies chest pain Respiratory: Denies shortness of breath Abdomen: Denies abdominal pain nausea vomit diarrhea : Denies any urinary symptoms Neurological: Complains of generalized weakness of the lower extremities as noted above denies any numbness Musculoskeletal: Complains of bilateral hip pain denies back pain Skin: Denies any rashes or lesions EXAM Physical Exam Narrative Exam Narrative: General: Patient was lying in bed rest comfortably did not appear to be acute distress Head: Atraumatic, normocephalic Eyes: PERRL bilaterally, EOMI bilaterally, no conjunctival injection noted Neck: Soft, supple, trachea midline Cardiovascular: Regular rate and rhythm no murmurs gallops or rubs noted Respiratory: Clear to auscultation bilaterally Abdomen: Soft, nondistended, nontender to palpation Musculoskeletal: +4/5 strength noted in the bilateral upper extremities, +3/5 strength noted in the lower extremity, patellar reflexes were normal Extremities: DP pulses were not able to be dopplered here in the emergency department however her PT pulses were dopplered bilaterally Neurological: Patient financing that she was at [facility] year is 2024 patient has sensation decreased in her feet, shins anteriorly bilaterally however she states that her knee up the sensation is normal Skin: Warm, dry, patient has chronic wound on the left heel that appears to be healing well no concern for infection at this point time Const Vital Signs: 02/19/25 16:01 02/19/25 16:40 02/19/25 18:08 Temperature 98.3 F Temperature Source Oral Pulse Rate 98 76 Respiratory Rate 16 16 Respiratory Effort Normal Non-Labored Respiratory Pattern Normal Blood Pressure 105/77 114/87 H Blood Pressure Mean 86 96 Pulse Ox 99 100 Oxygen Delivery Method Room Air Room Air 02/19/25 20:00 02/19/25 21:00 Temperature 97.6 F L 97.8 F Temperature Source Oral Oral Pulse Rate 76 76 Respiratory Rate 12 14 Respiratory Effort Respiratory Pattern Blood Pressure 108/81 H 119/80 Blood Pressure Mean 90 93 Pulse Ox 100 100 Oxygen Delivery Method Room Air Room Air MDM MDM MDM Narrative Medical decision making narrative: Patient is a 39-year-old female who presents to the emergency department chief complaint of lower extremity weakness inability ambulate with muscle pain in her legs. On the differential diagnosis includes but limited to acute arterial occlusion, myositis, electrolyte abnormality, UTI, generalized weakness. Once the workup is obtained reviewed she will be reevaluated. Patient be given IV fluids Zofran and a gram of Tylenol as she is requesting something for pain Patient CBC reviewed showed no evidence leukocytosis white was count normal at 9.5, hemoglobin stable 13, plate count was 365. Patient INR was noted be 1.4 this is subtherapeutic as she is on warfarin, sodium is 142, potassium is low indicating hypokalemia at 2.1, creatinine was normal at 1. Magnesium level was added on. Patient lactic acid elevated 2.3, calcium level at 7.2 she also be given calcium supplementation here in the emergency department. Patient magnesium level was low at 0.8 she will be given 4 g of supplementation. Patient AST and ALT were 119 and 66 respectively creatinine kinase was elevated to 700. She was given 2 L of IV fluids. Patient lipase is 12, test negative, urinalysis reviewed showed no evidence of infection. Patient's drug screen was negative. Patient CTA abdomen/pelvis with runoff was reviewed and showed patent abdominal aorta and major visceral branches as well as the iliac and visualized lower extremity arterial runoff vessels no evidence of vascular occlusion or aneurysm. Hypodense liver suspicious for hepatic steatosis. Status postcholecystectomy and prior colon resection. Dilated small bowel loops which may represent ileus versus obstruction clinically clinically she does not have any abdominal pain therefore do not believe that this is obstruction. Small fat-containing umbilical hernia midline abdominal wall surgical scar and mild soft tissue fat stranding likely postsurgical. Given the patient's electrolyte abnormalities she was given potassium supplementation 40 orally, 40 intravenously, magnesium supplementation as well as calcium. Given that she is too weak to get up and ambulate also with an elevated CK level do believe she will require admission we will discuss case with hospitalist. Discussed case with hospitalist Dr. Bazan who accept the patient for admission. Notified the patient she is agreeable with this plan all question concerns answered at bedside. Lab Data Labs: Laboratory Results - last 24 hr 02/19/25 02/19/25 02/19/25 18:00 18:03 20:00 WBC 9.5 RBC 4.76 Hgb 13.0 Hct 38.8 MCV 81.5 MCH 27.3 MCHC 33.5 RDW Std Deviation 42.4 RDW Coeff of Chris 14.3 Plt Count 365 MPV 9.1 Immature Gran % (Auto) 0.300 Neut % (Auto) 64.0 Lymph % (Auto) 26.5 [place] % (Auto) 7.3 Eos % (Auto) 1.4 Baso % (Auto) 0.5 Absolute Neuts (auto) 6.1 Absolute Lymphs (auto) 2.51 Nucleated RBC % 0 PT 17.9 H INR 1.4 APTT 30.6 Sodium 142 Potassium 2.1 L* Chloride 102 Carbon Dioxide 24.7 Anion Gap 15 BUN 4 Creatinine 1.00 Estim Creat Clear Calc 81.37 Est GFR (MDRD) Non-Af 73 BUN/Creatinine Ratio 3.9 L Glucose 106 H Lactic Acid 2.3 H* Calcium 7.2 L Magnesium 0.8 L* Total Bilirubin 0.70 AST 119 H ALT 66 H Alkaline Phosphatase 160 H Total Creatine Kinase 700 H Total Protein 6.7 Albumin 3.3 L Globulin 3.4 Albumin/Globulin Ratio 1.0 Lipase 12 L Serum , Qual NEGATIVE Urine Color Yellow Urine Clarity Clear Urine pH 7.0 Ur Specific [place] 1.005 Urine Protein 30 H Urine Glucose (UA) Normal Urine Ketones Negative Urine Occult Blood Negative Urine Nitrite Negative Urine Bilirubin Negative Urine Urobilinogen Normal Ur Leukocyte Esterase Negative Urine RBC 0 SEEN Urine WBC 0-5 SEEN Ur Squamous Epith Cells 0-5 SEEN Urine Bacteria 0 SEEN Urine Mucus 0 SEEN Urine Opiates Screen NEGATIVE U Buprenorphine Qual NEGATIVE Ur Oxycodone Screen NEGATIVE Urine Methadone Screen NEGATIVE Urine Fentanyl Screen NEGATIVE Ur Barbiturates Screen NEGATIVE Ur Phencyclidine Scrn NEGATIVE Ur Amphetamines Screen NEGATIVE U Benzodiazepines Scrn PRESUMPTIVE POSITIVE Urine Cocaine Screen NEGATIVE U Cannabinoids Screen NEGATIVE Radiography Diagnostic Testing: Clinical Impression(s) from Imaging Studies Abdomen/Pelvis CTA 02/19/25 18:20 IMPRESSION: *Patent abdominal aorta and major visceral branches, as well as iliac and visualized lower extremity arterial runoff vessels. No evidence of vascular occlusion or aneurysm. *Hypodense liver, suspicious for hepatic steatosis. *Status post cholecystectomy and prior colon resection. *Dilated small bowel loops which may represent ileus versus obstruction; correlate clinically. *Small fat-containing umbilical hernia. *Midline abdominal wall surgical scar with mild soft tissue fat stranding, likely postsurgical change. Reading Location: [facility] Discharge Plan Triage Chief Complaint: Weakness ED Provider: John Capps Dx/Rx/DC Orders Clinical Impression: Dehydration, History of transmetatarsal amputation of left foot, Generalized weakness, Hypokalemia, Hypomagnesemia Prescriptions: No Action escitalopram oxalate 20 mg tablet 30 mg PO DAILY olanzapine 20 mg tablet 20 mg PO QHS omeprazole 40 mg capsule,delayed release(DR/EC) 40 mg PO DAILY PRN (Reason: reflux) potassium chloride 20 mEq Tablet,Er Particles/Crystals 40 meq PO DAILYCM Qty: 60 0RF warfarin 5 mg tablet 2.5 mg PO QHS Primary Care Provider: Fredrick Boland Referrals: Fredrick Boland DO [Primary Care Provider] - Print Language: [place] Disposition Disposition: Acute Care Hospital [facility]
[2025-02-19] MEDS: 0.9% Normal Saline (1000mL) 1,000 ML 999 ML IV ×2 (18:03→19:46)
[2025-02-19 18:08] VITALS: BP 114/87; PULSE 76; RESP 16; O2SAT 100
[2025-02-19 18:12] LABS: Hematocrit 38.8 % (37-47); Hemoglobin 13.0 g/dL (12.0-15.0); Immature Granulocytes Count 0.030 X10^3/uL (0.0-0.0); Mean Corp Hgb Conc 33.5 g/dL (32-36); Mean Corpuscular Volume 81.5 fL (81-99); Mean Platelet Vol. 9.1 fl (6.2-12.0); NRBC Flagged by Analyzer 0 % (0-5); Platelet Count 365 K/mm3 (150-450); RBC Distribution Width CV 14.3 % (11.6-14.6); RBC Distribution Width SD 42.4 fl (35.1-43.9); Red Blood Count 4.76 M/mm3 (4.2-5.4); White Blood Count 9.5 K/mm3 (4.4-11.0)
--- NOTE | 2025-02-19 18:20 | CT_ITS ---
PROCEDURE: CTA ABD W/RUNOFF W/WO CONTRAST 02/19/2025 REASON FOR EXAM: LOWER EXTREMITY WEAKNESS INABILITY AMBULATE, TECHNIQUE: CTA ABD W/RUNOFF W/WO CONTRAST Multiplanar Sagittal and Coronal images were obtained. CONTRAST: Isovue 370 VOLUME: 90 mL One or more dose reduction techniques were used (e.g., Automated exposure control, adjustment of the mA and/or kV according to patient size, use of iterative reconstruction technique). RADIATION DOSE SUMMARY: CTDlvol: 14 mGy DLP: 1260 mGycm FINDINGS: *Soft Tissues: Midline surgical incision with mild fat stranding, which may represent scar. *Aorta/Arterial Vasculature: *Abdominal aorta normal in caliber. *Celiac trunk: Patent. *Superior mesenteric artery (SMA): Patent. *Inferior mesenteric artery (DESTINY): Patent. *Renal arteries (bilateral): Patent. *Common iliac arteries (bilateral): Patent. *External iliac arteries (bilateral): Patent. *Internal iliac arteries (bilateral): Patent. *Common femoral arteries (bilateral): Patent. *Superficial femoral arteries (bilateral): Patent. *Profunda femoris arteries (bilateral): Patent. *Popliteal arteries (bilateral): Patent. *Tibial arteries (anterior tibial, posterior tibial, peroneal, bilaterally): Patent to the extent visualized. *Liver: Hypodense appearance, suspicious for hepatic steatosis. *Gallbladder: Surgically absent. *Pancreas/Spleen/Adrenals: Unremarkable. *Kidneys/Ureters: Symmetric renal enhancement. No hydronephrosis. *Bowel: *Prior colon resection. *Dilated loops of small bowel which may represent ileus versus obstruction. *No free air or free fluid. *Hernias: Small fat-containing umbilical hernia. CT/CTA Abd w/Runoff W/WO Contrast IMPRESSION: *Patent abdominal aorta and major visceral branches, as well as iliac and visua lized lower extremity arterial runoff vessels. No evidence of vascular occlusion or aneurysm. *Hypodense liver, suspicious for hepatic steatosis. *Status post cholecystectomy and prior colon resection. *Dilated small bowel loops which may represent ileus versus obstruction; correl ate clinically. *Small fat-containing umbilical hernia. *Midline abdominal wall surgical scar with mild soft tissue fat stranding, like ly postsurgical change. Reading Location: [facility]
[2025-02-19 18:59] LABS: Prothrombin Time (Protime)PT. 17.9 SECONDS (11.7-14.9)
[2025-02-19 19:00] LABS: Partial Thromboplast Time 30.6 Seconds (24.1-36.2)
[2025-02-19 19:04] LABS: Internal QC Validated? YES +Cl - CLEAR BKGD
[2025-02-19 19:05] LABS: Pregnancy, Serum, hCG Quali. NEGATIVE Negative; Record Kit Lot#, Serum Preg. 0000962302
[2025-02-19 19:26] LABS: CPK Total, Creatine Kinase 700 U/L (24-195); Lipase 12 U/L (13-75)
[2025-02-19 19:36] LABS: AST(SGOT) 119 U/L (<=31); Alanine Aminotransfer ALT/SGPT 66 U/L (<=34); Albumin, Serum 3.3 g/dL (3.5-5.0); Alkaline Phosphatase 160 U/L (35-104); Anion Gap 15 (5-15); BUN 4 mg/dL (4-19); BUN/Creat Ratio 3.9 RATIO (10-20); Calcium,Total 7.2 mg/dL (7.6-11.0); Carbon Dioxide 24.7 mmol/L (21.0-32.0); Chloride 102 mmol/L (98-108); Estimated Creatinine Clearance 81.37 ml/min (50-250); Globulin 3.4 g/dL (2.2-4.2); Glucose 106 mg/dL (70-99)
[2025-02-19 19:54] LABS: Potassium 2.1 mmol/L (3.3-5.1)
[2025-02-19 20:00] VITALS: BP 108/81; PULSE 76; RESP 12; TEMP 36.4; O2SAT 100
[2025-02-19 20:04] LABS: Mucous, Urine 0 SEEN /hpf (<or=2+); Red Blood Cells-Urine 0 SEEN /hpf (0-5)
[2025-02-19 20:08] LABS: Color, Urine Yellow (Yellow); Glucose, Dipstick Normal (Normal); Ketone-Dipstick Negative (Negative); Leukocyte Esterase-Dipstick Negative /ul (Negative); Nitrite-Dipstick Negative (Negative); Occult Blood-Urine Negative /ul (Negative); Protein-Dipstick 30 mg/dl (Negative); Specific Gravity, Urine 1.005 (1.002-1.030); Urine Bilirubin Dipstick Negative (Negative)
[2025-02-19] MEDS: Potassium Chloride 10mEq/100mL 10 MEQ/100 ML IV.SOLN. 100 MEQ IV BOLUS ×3 (20:21→22:39)
[2025-02-19 20:24] LABS: Squamous Epithelial Cells - UA 0-5 SEEN /hpf (5-10)
[2025-02-19] MEDS: Potassium Chloride Oral Tablet 20 MEQ 40 MEQ PO (20:42)
[2025-02-19 21:00] VITALS: BP 119/80; PULSE 76; RESP 14; TEMP 36.6; O2SAT 100
[2025-02-19 21:01] LABS: Barbiturate Urine NEGATIVE (< 200 ng/mL); Benzodiazepine Urine PRESUMPTIVE POSITIVE (< 200 ng/mL); PCP Urine NEGATIVE (< 25 ng/mL); THC Urine NEGATIVE (< 50 ng/mL)
[2025-02-19 21:18] LABS: Magnesium 0.8 mg/dL (1.5-2.2)
--- NOTE | 2025-02-19 21:59 | PCM.HP.STD ---
[facility] - General General Date of Admission: 02/19/25 Date of Service: 02/19/25 Chief Complaint: Weakness, Diarrhea and Dehydration. [facility] Narrative CHERYL EVANS, is a 39 F with a past medical history of being overweight; with BMI of 28.2 this admission, history of provoked bilateral LE DVT's after abdominal surgery; on warfarin, history of transmetatarsal amputation of the Left foot November 15, 2024 due to compartment syndrome with gangrene of toes with surgery done by Dr. Arreaga of podiatry with subsequent plantar medial ulceration of the Left heel followed [facility] by Dr. 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 Ms. Evans reports her symptoms began approximately one day prior to admission with increasing lower extremity weakness that caused her to be unable to walk. She also admits to severe pain in her hips/thighs as well with persistent nonbloody diarrhea after recent reanastomosis of her bowels and recent antibiotic treatment for SIBO . She denies associated fever, chills, nausea, vomiting, constipation, abdominal pain, chest pain, palpitations, heart racing, lower extremity edema, dysuria, hematuria, headache or rash. In the ER she was noted to have Severe Hypokalemia of 2.1 mmol/L and Severe Hypomagnesemia of 0.8 mg/dL both present on admission complicated by Lactic Acidosis of 2.3 mmol/L present on admission likely due to persistent Diarrhea with further laboratory evidence of Myotoxicity; with elevate total creatinine kinase of 700 U/L and mild Transaminitis; with AST 119 U/L, ALT 66 U/L and Alkaline Phosphatase of 160 U/L all present on admission along with a UDS positive for benzodiazepines with corresponding clinical evidence of Generalized Weakness with Ambulatory Dysfunction and she was then admitted to the PCU for ongoing care for a stay that is expected to extend beyond 2 midnights. [facility] Medical History Depression Former smoker Ischemic necrosis of toe Sepsis Hx of blood clots Diarrhea Anxiety Tobacco use Borderline personality disorder Obesity Bipolar disorder Home Medications ?Medication ?Instructions ?Recorded ?Last Taken ?Type escitalopram oxalate 20 mg tablet 30 mg PO DAILY ASK PCP 04/27/22 06/19/23 History olanzapine 20 mg tablet 20 mg PO QHS ASK PCP 06/20/23 06/19/23 History omeprazole 40 mg capsule,delayed 40 mg PO DAILY PRN reflux 06/20/23 06/19/23 History release potassium chloride 20 mEq 40 meq (2 x 20 mEq) PO DAILYCM k+ 11/16/24 Unknown Rx tablet,extended release(part/cryst) replace #60 tabs warfarin 5 mg tablet 2.5 mg PO QHS 01/17/25 Unknown History Allergy/AdvReac Type Severity Reaction Status Date / Time acetaminophen (From Percocet) AdvReac Abd Verified 02/19/25 16:05 cramps/diarrhea hydrocodone (From Vicodin) AdvReac Abd Verified 02/19/25 16:05 cramps/diarrhea oxycodone (From Percocet) AdvReac Abd Verified 02/19/25 16:05 cramps/diarrhea Family History Other Heart disease Surgical History History of creation of ostomy Hx of cholecystectomy H/O section History of carpal tunnel surgery Social History Smoking Status: Former smoker substance use type: does not use ROS ROS Narrative Review of Systems: Constitutional: Patient denies fever or chills. Eyes: Patient denies changes in vision or discharge from eyes. ENT: Patient denies runny nose, sore throat or ear pain. Resp: Patient denies SOB or cough. CV: Patient denies chest pain, palpitations, heart racing or LE edema. GI: Patient denies abdominal pain, nausea, vomiting, diarrhea or constipation. : Patient denies dysuria or hematuria. MSK: Patient admits to LE weakness with ambulatory dysfunction and pain in hips/thighs as per HPI. Skin: Patient denies rash. Psych: Patient admits to depression but she denies SI or HI. Neuro: Patient admits to LE weakness with difficult ambulation as per HPI but she denies paresthesias or headache. Allergy: Patient denies lip swelling, tongue swelling or urticaria. Hematology: Patient denies easy bleeding or east bruisability. Endocrinology: Patient denies polyuria, polydipsia, polyphagia or heat/cold intolerance. 14 point ROS otherwise negative except for positives noted above in HPI. Vital Signs Vital Signs Vital Signs: 02/19/25 16:01 02/19/25 16:40 02/19/25 18:08 Temperature 98.3 F Temperature Source Oral Pulse Rate 98 76 Respiratory Rate 16 16 Respiratory Effort Normal Non-Labored Respiratory Pattern Normal Blood Pressure 105/77 114/87 H Blood Pressure Mean 86 96 Pulse Ox 99 100 Oxygen Delivery Method Room Air Room Air 02/19/25 20:00 02/19/25 21:00 Temperature 97.6 F L 97.8 F Temperature Source Oral Oral Pulse Rate 76 76 Respiratory Rate 12 14 Respiratory Effort Respiratory Pattern Blood Pressure 108/81 H 119/80 Blood Pressure Mean 90 93 Pulse Ox 100 100 Oxygen Delivery Method Room Air Room Air Weight Weight: 180 lb Body Mass Index (BMI) 28.2 Physical Exam Const alert, oriented x3 and no apparent distress General Appearance: cooperative HEENT normocephalic, head/scalp atraumatic and hearing grossly normal bilaterally HEENT Narrative: Mucous membranes dry. Eyes PERRL, EOMs intact bilaterally and conjunctivae normal Neck no lymphadenopathy, supple and no JVD Resp normal respiratory effort, no retractions and no use of accessory muscles Cardio regular rate and regular rhythm GI normal to inspection, nondistended, normoactive bowel sounds, soft to palpation, non-tender and non-distended Extremity Extremity Narrative: +4/5 strength in UE's. +3/5 strength in LE's. Reflexes normal. Skin Skin Narrative: Patient has no evidence of rash. Neuro oriented x3, CN's II-XII intact bilaterally and moves all extremities Neuro Narrative: Patient has +3/5 weakness in UE's with inability to ambulate at this time. Sensorium / Orientation: awake, alert, oriented to person, oriented to place and oriented to time Speech: speech normal Psych affect normal Results Medical Records Data Attestation: I reviewed the patient's medical records Lab / Micro Data Attestation: I reviewed the patient's lab results. 02/19/25 18:00 02/19/25 18:00 Labs: Laboratory Results - last 24 hr 02/19/25 18:00: WBC 9.5, RBC 4.76, Hgb 13.0, Hct 38.8, MCV 81.5, MCH 27.3, MCHC 33.5, RDW Std Deviation 42.4, RDW Coeff of Chris 14.3, Plt Count 365, MPV 9.1, Immature Gran % (Auto) 0.300, Neut % (Auto) 64.0, Lymph % (Auto) 26.5, Emmons % (Auto) 7.3, Eos % (Auto) 1.4, Baso % (Auto) 0.5, Absolute Neuts (auto) 6.1, Absolute Lymphs (auto) 2.51, Nucleated RBC % 0, Sodium 142, Potassium 2.1 L*, Chloride 102, Carbon Dioxide 24.7, Anion Gap 15, BUN 4, Creatinine 1.00, Estim Creat Clear Calc 81.37, Est GFR (MDRD) Non-Af 73, BUN/Creatinine Ratio 3.9 L, Glucose 106 H, Lactic Acid 2.3 H*, Calcium 7.2 L, Magnesium 0.8 L*, Total Bilirubin 0.70, AST 119 H, ALT 66 H, Alkaline Phosphatase 160 H, Total Creatine Kinase 700 H, Total Protein 6.7, Albumin 3.3 L, Globulin 3.4, Albumin/Globulin Ratio 1.0, Lipase 12 L, Serum , Qual NEGATIVE 02/19/25 18:03: PT 17.9 H, INR 1.4, APTT 30.6 02/19/25 20:00: Urine Color Yellow, Urine Clarity Clear, Urine pH 7.0, Ur Specific [place] 1.005, Urine Protein 30 H, Urine Glucose (UA) Normal, Urine Ketones Negative, Urine Occult Blood Negative, Urine Nitrite Negative, Urine Bilirubin Negative, Urine Urobilinogen Normal, Ur Leukocyte Esterase Negative, Urine RBC 0 SEEN, Urine WBC 0-5 SEEN, Ur Squamous Epith Cells 0-5 SEEN, Urine Bacteria 0 SEEN, Urine Mucus 0 SEEN, Urine Opiates Screen NEGATIVE, U Buprenorphine Qual NEGATIVE, Ur Oxycodone Screen NEGATIVE, Urine Methadone Screen NEGATIVE, Urine Fentanyl Screen NEGATIVE, Ur Barbiturates Screen NEGATIVE, Ur Phencyclidine Scrn NEGATIVE, Ur Amphetamines Screen NEGATIVE, U Benzodiazepines Scrn PRESUMPTIVE POSITIVE, Urine Cocaine Screen NEGATIVE, U Cannabinoids Screen NEGATIVE Imaging Radiology Impression Abdomen/Pelvis CTA 02/19/25 18:20 IMPRESSION: *Patent abdominal aorta and major visceral branches, as well as iliac and visualized lower extremity arterial runoff vessels. No evidence of vascular occlusion or aneurysm. *Hypodense liver, suspicious for hepatic steatosis. *Status post cholecystectomy and prior colon resection. *Dilated small bowel loops which may represent ileus versus obstruction; correlate clinically. *Small fat-containing umbilical hernia. *Midline abdominal wall surgical scar with mild soft tissue fat stranding, likely postsurgical change. Reading Location: [facility] Assessment & Plan Assessment/Plan (1) Hypokalemia: (2) Hypomagnesemia: (3) Acidosis, lactic: (4) Diarrhea: QUALIFIERS: Diarrhea type: presumed infectious Qualified Code(s): R19.7 - Diarrhea, unspecified (5) Elevated creatine kinase: (6) Generalized weakness: (7) Ambulatory dysfunction: (8) Transaminitis: (9) History of DVT (deep vein thrombosis): (10) Chronic anticoagulation: (11) History of transmetatarsal amputation of left foot: PLAN: Plan 1. Severe Hypokalemia of 2.1 mmol/L present on admission in the setting of previously known Hypokalemia of KCl supplementation with patient not taking KCl supplement due to poor absorption and with loose stools after recent antibiotics presumably used to treat SIBO - Give IV and oral KCl supplementation and then recheck level in AM to confirm repletion. Check stool studies and place on enteric precautions. 2. Severe Hypomagnesemia of 0.8 mg/dL present on admission complicating #1 - Continue IV magnesium sulfate begun in ER and recheck level in AM to follow trend for improvement. 3. Lactic Acidosis of 2.3 mmol/L present on admission compounding #1 & #2 - Gently volume resuscitate and then recheck level to follow trend. 4. Myotoxicity; with elevate total creatinine kinase of 700 U/L with Generalized Weakness and Ambulatory Dysfunction adding to the medical complexity of #1 - #3 - Gently volume resuscitate and recheck total CPK in AM. Finally, we will consult PT/OT and Case Management to see this patient on-rounds in the AM for further recommendations with help appreciated in advance. 5. Transaminitis; with AST 119 U/L, ALT 66 U/L and Alkaline Phosphatase of 160 U/L adding to the burden of disease outlined from #1 - #4 - Check viral hepatitis panel and serialize CMP daily. 6. History of provoked bilateral LE DVT's after abdominal surgery; on warfarin - Noted. Restart warfarin and bridge with LMWH with subtherapeutic INR of 1.4 present on admission. 7. History of transmetatarsal amputation of the Left foot November 15, 2024 due to compartment syndrome with gangrene of toes with surgery done by Dr. Arreaga of podiatry with subsequent plantar medial ulceration of the Left heel followed in Wound Clinic by Dr. Fonseca of podiatry - Stable. 8. 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 9. Overweight; with BMI of 28.2 this admission - Weight loss will be recommended. Check TSH. 10. History of hypovolemic hyponatremia (11/22/2024) - Noted with normal serum sodium of 142 mmol/L present on admission. 11. History of sepsis - Noted. 12. Chronic anemia - Apparently stable with hemoglobin of 13 g/dL and MCV of 81.5 fL this admission. 13. History of cholecystectomy - Noted for the sake of completeness. 14. GERD; on omeprazole - Maintain PPI. 15. Bipolar disorder and borderline-personality disorder; on escitalopram plus olanzapine - Current therapy to continue as before with UDS positive for benzodiazepines. 16. Former tobacco abuse - Noted. 17. Remote history of IVDA (quit ~20 years ago) - Noted with UDS listed above. 18. DVT prophylaxis - Patient on warfarin with subtherapeutic INR of 1.4 present on admission so we will continue warfarin and bridge with LMWH until INR > 2. Total time: Approximately (but not less than) 75 minutes.
[2025-02-19 22:00] VITALS: BP 104/91; PULSE 75; RESP 14; TEMP 36.6; O2SAT 100
[2025-02-19 22:06] LABS: Reflex Lactate? Y
[2025-02-19 22:22] VITALS: BP 104/91; PULSE 86; RESP 16; TEMP 36.6; O2SAT 100
--- OUTSIDE RECORDS SUMMARY | 2025-02-19 23:10 | XMS RPT_ITS | CCD ---
Author Organization [facility] Inform ion [facility] Care Team Providers Care Ops Analyst Name Role Phone Zakiya George Unavailable UnavailZakiya [...] Fredrick Boland DO Primary Care Provider Rangel CHANGE MANAGEMENT SPECIALIST.Yesenia HARRINGTON Unavailable [facility] CHANGE MANAGEMENT SPECIALIST.Xochilt HARRINGTON Unavailable Ariella Cortes RN Unavailable Unavailable Juan Carlos CHANGE MANAGEMENT SPECIALIST.Yesenia HARRINGTON Unavailable Maggie Putnam MD Unavailable Provider [...] Boland DO, Fredrick L Primary Care Provider Carmine VO, Lee Unavailable Odessa CHANGE MANAGEMENT SPECIALIST.Ed HARRINGTON Unavailable Leujuanen [facility], Keesha Unavailable Kevinnonaomy [facility], Mounika Unavailable Stephie Montoya MD Unavailable Stephie Montoya MD Unavailable ED THOMAS Attending Unavailable BOLAND, FREDRICK Primary Care Unavailable CLAYTON ANGELES Attending Unavailable BOLAND, FREDRICK Primary Care Unavailable MARILINXOCHILT Referring Unavailable BOLAND, FREDRICK Primary Care Unavailable MARILIN, XOCHILT Attending Unavailable BOLAND, FREDRICK Primary Care Unavailable ED THOMAS Referring Unavailable BOLAND, FREDRICK Primary Care Unavailable KIRIT DEVINE Attending Unavailable BOLAND, FREDRICK Primary Care Unavailable BOLAND, FREDRICK Primary Care Unavailable CLAYTON ANGELES Attending Unavailable ED THOMAS Referring Unavailable BOLAND, FREDRICK Primary Care Unavailable QUATROMONI, ALEJA Referring Unavailable BOLAND, FREDRICK Primary Care Unavailable KIRIT DEVINE Attending Unavailable SANDRA RILEY Admitting Unavailable BOLAND, FREDRICK Primary Care Unavailable DELILAH CHAVES Admitting Unavailable MEGAN OLIVER Attending Unavailable HERACLIO PALACIO Referring Unavailable BOLAND, FREDRICK Primary Care Unavailable QUATROMONI, ALEJA Referring Unavailable BOLAND, FREDRICK Primary Care Unavailable SELF Referring Unavailable ANGELA BLACKWOOD Attending Unavailable BOLAND, FREDRICK Primary Care Unavailable MARTÍN BALLESTEROS Attending Unavailable BOLAND, FREDRICK Primary Care Unavailable BOLAND, FREDRICK Primary Care Unavailable ODESSA ED JOAN Attending Unavailable BOLAND, FREDRICK Primary Care Unavailable ODESSA, ED JOAN Referring Unavailable BOLAND, FREDRICK Primary Care Unavailable BOLAND, FREDRICK Primary Care Unavailable CLAYTON ANGELES Attending Unavailable RAJGURU CLAYTON J Referring Unavailable BOLAND, FREDRICK Primary Care Unavailable RAJGURU CLAYTON J Referring Unavailable XOCHILT GASTON Attending [facility] Unavailable Boland, Fredrick Primary Care Unavailable BO MITCHELL Attending Unavailable PAULA, BO Referring Unavailable Ed Thomas Attending Unavailable Odessa Ed J Referring Unavailable Boland, Fredrick Primary Care Unavailable Yoseph Fonseca Attending Unavailable Boland, Fredrick Primary Care Unavailable Whitley, Alok Referring Unavailable Joshua Nazario Attending Unavailable Ailyn Robert Referring Unavailable Boland, Fredrick Primary Care Unavailable Boland, Fredrick Primary Care Unavailable Rosa Maria Cai Attending Unavailable Ashley Rosen Admitting Unavailable Ashley Rosen Consulting Unavailable Mitul Arreagason Consulting Unavailable Rosa Maria Cai Consulting Unavailable Ashley Rosen Attending Unavailable Joshua Hugo Attending Unavailable Taras Sue Consulting Unavailable Taras Sue Admitting Unavailable Boland, Fredrick Primary Care Unavailable Joshua Hugo Consulting Unavailable Ashley Rosen Consulting Unavailable Boland, Fredrick Primary Care Unavailable BO MITCHELL Attending Unavailable YARIELINE, BO Referring Unavailable Boland, Fredrick Primary Care Unavailable BO MITCHELL Attending Unavailable YARIELINE, BO Referring Unavailable Boland, Fredrick Primary Care Unavailable Rosa Maria Cai Referring Unavailable Ailyn Robert Attending Unavailable Taras Sue Attending Unavailable Taras Sue Admitting Unavailable Taras Sue F Consulting Unavailable Boland, Fredrick Primary Care Unavailable Vinicius Sueolas F Admitting Unavailable Lida Sues F Consulting Unavailable Donte Nunez Attending Unavailable Boland, Fredrick Primary Care Unavailable Donte Nunez Consulting Unavailable Yoseph Fonseca Attending Unavailable Boland, Fredrick Primary Care Unavailable Alok Arreaga Referring Unavailable Heraclio Palacio Attending Unavailable Boland, Fredrick Primary Care Unavailable Boland, Fredrick Primary Care Unavailable BO MITCHELL Attending Unavailable BO MITCHELL Referring Unavailable Jag Thomas Attending Unavailable Boland, Fredrick Primary Care Unavailable Heraclio Palacio Attending Unavailable Boland, Fredrick Primary Care Unavailable Ashley Rosen Attending Unavailable Taras Sue Attending Unavailable Rosa Maria Cai Attending Unavailable Ashley Rosen Consulting Unavailable Ashley Rosen Admitting Unavailable Alok Arreaga Consulting Unavailable Joshua Hugo Attending Unavailable Vinicius Sueolas F Admitting Unavailable Vinicius Sueolas F Consulting Unavailable Boland, Fredrick Primary Care Unavailable Joshua Hugo Consulting Unavailable Ashley Rosen Consulting Unavailable Vinicius Sueolas F Admitting Unavailable Vinicius Sueolas F Consulting Unavailable Donte Nunez Attending Unavailable Boland, Fredrick Primary Care Unavailable Allergies Allergy Classification Reported Allergen(s) Allergy Type Date of Onset Reaction(s) Facility (20 sources) Acetaminophen / HYDROcodone; Translations: [HYDROCODONE-ACETA MINOPHEN] Drug Allergy 02-06-2018 GI Upset [facility] (1 source) Acetaminophen / HYDROcodone Drug Allergy [facility] (1 source) HYDROcodone Drug Allergy [facility] Medications Current Medications Medication Drug [...] once daily. Take 2 tablets by mo mdh once daily. gabapentin 300 mg oral capsule [...] 10/12/2024 Active metroNIDAZOLE 500 mg oral tablet (11 sources) Nitroimidazole Antimicrobial Start: 02-07-2025 End: 02-14-2025 take 1 tablet by mouth three times daily metroNIDAZOLE (FLAGYL) 500 mg tablet Take 1 tablet by mouth three times a day for 7 days. 21 tablet 02/07/2025 02/14/2025 Active Start: 12-31-2024 End: 01-07-2025 take 1 tablet [...] Comment on above: [facility] omeprazole 40 mg delayed release oral capsule (20 sources) Proton Pump Inhibitor Start: End: take 1 capsule by mouth once daily omeprazole (PRILOSEC) 40 mg capsule Indications: GERD without esophagitis Take 1 capsule by mouth once daily. 30 capsule 11 09/28/2023 Active Comment on above: Take 1 capsule by mo [facility] once daily. OTC NUTRITIONAL SUPPLEMENT (13 [...] potassium bicarbonate 25 meq effervescent oral tablet (7 sources) Start: 01-28-2025 End: 04-28-2025 take 1 [...] BEDTIME warfarin sodium 5 mg oral tablet (16 sources) Vitamin K Antagonist Start: 01-24-2025 End: [...] Take 1 tablet by nathan th once daily as needed for up to [...] 1 tablet by nathan th twice daily for 30 days. ascorbic acid 1000 mg oral tablet (20 sources) Vitamin C Start: 2021 End: 2023 take 1 tablet by mouth once daily Ascorbic Acid (VITAMIN C) 1,000 mg tablet Indications: Iron deficiency Take 1 tablet by mouth once daily. 60 tablet 3 08/03/2021 05/18/2024 Discontinued (Discontinued by Patient) Comment on above: Take 1 tablet by [facility] once daily. aspirin 81 mg chewable tablet [...] Comment on above: Take 1 capsule by mo [facility] once daily. codeine phosphate 2 mg/ml [...] Start: 08-07-2024 take 1 tablet by nathan th once [...] Start: 07-20-2021 take 1 tablet by nathan once daily [...] Comment on above: Take 1 tablet by [facility] twice daily with meals. ferrous sulfate 325 [...] Comment on above: Take 1 capsule by [facility] once daily. In addition to 40mg capsule for total of 60mg daily. Take 1 capsule by [facility] once daily. fluticasone propionate 0.05 mg/actuat metered dose nasal spray (3 sources) Corticosteroid Start: 021 End: 022 take 2 spray(s) by mouth once daily fluticasone (FLONASE) 50 mcg/actuation nasal spray Use 2 Sprays in each nostril once daily. Rinse mouth after use. 1 Bottle 1 01/02/2021 10/23/2021 Discontinued Comment on above: Use 2 Sprays in each nostril once daily. Rinse mouth after use. hydrocortisone 0.01 mg/mg topical ointment (4 sources) Corticosteroid Start: 025 End: hydrocortisone (AQUAPHOR ITCH RELIEF) 1 % ointment Indications: Eczema, unspecified type Apply to affected area two times a day. 453.6 g 1 08/16/2024 Suspended ibuprofen 800 mg oral tablet (20 sources) Nonsteroidal Anti-inflammatory Drug Start: End: take 1 tablet by mouth every eight [...] on above: Take 1 tablet by nathan every 8 hours as needed for pain. [...] sources) Mood Stabilizer, Anti-epileptic Agent Start: 07-08-19 24 End: 05-18-20 24 take 1 tablet by mouth once daily [...] once daily. Take 1 tablet by nathan th once daily for 14 days, THEN 2 [...] Start: 09-03-2024 take 1 capsule by mo [facility] at bedtime loperamide (IMODIUM) 2 mg cap(s) [...] Comment on above: Take 1 tablet by [facility] once daily. midodrine hydrochloride 5 mg oral [...] 2 minutes take 1 tablet by nathan every eight hours as needed ondansetron orally [...] on above: TAKE 1 CAPSULE BY MO UT EVERYDAY AT BEDTIME Take 1 capsule by mo [facility] twice daily. Take 1 capsule by mo ut daily at bedtime. propranolol hydrochloride 10 mg [...] above: Take 1 tablet by nathan twice daily. QUEtiapine 100 mg oral tablet [...] every two hours as needed rizatriptan (MAXALT STRATEGIC ACCOUNT MANAGER) 5 mg disintegrating tablet Indications: Ocular migraine Take 1 tablet by mouth as needed. May repeat in 2 hours if needed 9 tablet 1 05/04/2021 10/23/2021 Discontinued Comment on above: Take 1 tablet by nathan th as needed. May repeat in 2 hours [...] unspecified; Translations: [Acute kidney failure, unspecified] Onset: 5 Episodic Acute cerebrovascular disease (4 sources) Cerebral [...] micturition; Translations: [Other difficulties with micturition] Onset: 5 Episodic Immunizations and screening for infectious disease [...] (20 sources) Patient encounter status; Translations: [Other termination clerk (current) drug therapy] Onset: 5 Episodic Other aftercare (2 sources) Long-term current use of drug therapy; Translations: [Other group home (current) drug therapy] 05-20-2024 Episodic Other aftercare (1 source) Wound ; Translations: [Encounter for other specified surgical aftercare] 09-19-2024 Episodic Other aftercare (2 sources) Surgical follow-up; Translations: [Encounter for removal of sutures] 09-19-2024 Episodic Other aftercare (1 source) Long-term current use of aspirin; Translations: [intermodal dispatcher (current) use of aspirin] 09-19-2024 Episodic Other aftercare (2 sources) Long-term current use of anticoagulant; Translations: [M[facility] (current) use of anticoagulants] 09-19-2024 Episodic Other aftercare (2 sources) Other termination clerk (current) drug therapy; Translations: [Other group home (current) drug therapy] Onset: Episodic Other aftercare (1 source) intermodal dispatcher (current) use of aspirin; Translations: [intermodal dispatcher (current) use of aspirin] Onset: Episodic Other aftercare (3 sources) intermodal dispatcher (current) use of anticoagulants; Translations: [intermodal dispatcher (current) use of anticoagulants] Onset: Episodic Other aftercare (1 source) intermodal dispatcher (current) use of insulin; Translations: [M[facility] (current) use of insulin] Onset: Episodic Other [...] of vascular access device] 01-28-2025 Episodic Other aftercare (1 source) Encounter for adjustment and management of vascular access device; Translations: [Encounter for adjustment and management of vascular access device] Onset: Episodic Other bone disease and musculoskeletal deformities (2 sources) Acquired absence of left foot; Translations: [Acquired absence of left foot] Onset: Chronic Other circulatory disease (2 sources) Disorder of artery; Translations: [Disorder of arteries and arterioles, unspecified] 10-11-2024 Chronic Other circulatory disease (1 source) Presence of other vascular implants and grafts; Translations: [Presence of other vascular implants and grafts] Onset: Chronic Other connective tissue disease (2 sources) Pain of bilateral hands; Translations: [Pain in right hand] Episodic Other connective tissue disease (1 source) Pain in both feet; Translations: [Pain in right foot] Episodic Other connective tissue disease (1 source) Muscle pain; Translations: [Myalgia, unspecified site] Episodic Other connective tissue disease (2 sources) Pain in left foot; Translations: [Pain in left foot] Onset: 5 Episodic Other gastrointestinal disorders (1 source) Gastrostomy status; Translations: [Gastrostomy status] Onset: 5 Chronic Other gastrointestinal disorders (2 sources) Ileostomy status; Translations: [High output ileostomy (HCC)] Onset: 5 Chronic Other gastrointestinal disorders (20 sources) High output ileostomy; Translations: [Other specified symptoms and signs involving the digestive system and abdomen] Onset: 5 12-01-2024 Episodic Other hematologic conditions (1 source) Protein [...] postprocedural pain; Translations: [Acute post-operative pain] Onset: 5 Episodic Other non-traumatic joint disorders (1 source) [...] states; Translations: [Other specified postprocedural states] Onset: Episodic Screening and history of mental health and substance abuse codes (2 sources) Personal history of nicotine dependence; Translations: [Encounter for screening for depression] Onset: Episodic Septicemia (except in labor) (3 sources) Sepsis, unspecified organism; Translations: [Sepsis (HCC)] Onset: Episodic Skin and subcutaneous tissue infections (20 [...] and collapse; Translations: [Syncope and collapse] Onset: Episodic Unclassified (4 sources) NO SHOW Unclassified (1 source) APPOINTMENT CANCELLED 12-30-2023 Unclassified (3 sources) Acute lower limb ischemia 09-19-2024 Unclassified (1 source) Colonoscopy Assembler Show Motor Onset: 11-08-2024 Unclassified (1 source) Long-term current use of drug therapy 01-11-2025 Unclassified (1 source) Short bowel syndrome, 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; Translations: [Short bowel syndrome, 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] Onset: Unclassified (1 source) Acquired short bowel syndrome; Translations: [Acquired short bowel syndrome] Onset: Unclassified (1 source) 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; Translations: [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] Onset: 5 Past or Other Problems Problem [...] aftercare (20 sources) Drug therapy finding; Translations: [intermodal dispatcher (current) use of anticoagulants] Onset: 08-20-2024 08-20-2024 Episodic Other aftercare (20 sources) Insulin dose changed; Translations: [MCC (current) use of insulin] Onset: 08-30-2024 08-31-2024 Episodic Other circulatory disease (20 sources) Limb ischemia; Translations: [Other disorder of circulatory system] Onset: 08-20-2024 08-20-2024 Episodic Other circulatory disease (20 sources) Other disorder of circulatory system; Translations: [Unspecified circulatory system disorder] Onset: 08-21-2024 08-21-2024 Episodic Other circulatory disease (1 source) Hypotension, unspecified; Translations: [Hypotension, unspecified] Onset: 11-05-2024 Episodic Other connective tissue disease (2 sources) [...] Onset: 10-19-2024 Resolved: 10-26-2024 10-26-2024 Episodic Other gastrointestinal disorders (2 sources) Diarrhea, unspecified; Translations: [Intractable diarrhea] Onset: 10-19-2024 Episodic Other gastrointestinal disorders (2 sources) Other specified symptoms and signs involving the digestive system and abdomen; Translations: [High output ileostomy (HCC)] Onset: 11-05-2024 Episodic Other injuries and conditions due to [...] uncomplicated] Onset: 08-24-2024 Resolved: 08-30-2024 Episodic Unclassified (2 sources) Patient encounter status 08-08-2024 Results Test Name Value Interpretation Reference Range Facility Wound Ctr History AND Physic dorothy 01-17-2025 Wound Ctr History & Physical Normal [facility] L3410.9994on 01-15-2025 [facility] Misc. 2 COMMENT Normal . [facility] Comment on above: Order Comment: [id number] 0SELENIUM - ROYAL BLUE - PLASMA Result Comment: Test Ordered: [id number] Selenium, Serum/PlasmaTest(s) 301865-Rwfpgwcm, Serum/Plasmawas developed and its performance characteristicsdetermined by [facility]. It has not been cleared or approvedby the Food and Drug Administration.Selenium, Serum/Plasma 100 ug/L Reference Range: 93-198Performed at: - [facility] [id number] Director: Kim Mayorga MD, Phone: [phone] at: [facility] [id number] Director: Christian Alfaro PhD, Phone: [phone] Performed By: #### L 501.6710, L506.1001, L501.5000, L3410.9992, L3300.0100, L3410.9994, L3410.9996, L501.5200, L3300.8200, L7400.3000, L501.2300, L100.0500, L3300.9900, L503.0106, L500.4050 ####[facility] [address] [place], [address] L3410.9996on 01-13-2025 [facility] Misc. 3 COMMENT Normal . [facility] Comment on above: Order Comment: [id number] 9VITAMIN A E - SERUM Result Comment: Test Ordered: [id number] Vitamin A and ETest(s) 258571-Tfliqrg E(Alpha Tocopherol); 299859-Dqdcgpu E(Gamma Tocopherol)was developed and its performance characteristicsdetermined by [facility]. [...] was developed and its performance characteristicsdetermined by [employer]. It has not been cleared orapproved by the Food and Drug Administration.Vitamin E(Alpha Tocopherol) 7.8 mg/L Reference Range: 7.0-25.1Vitamin E(Gamma Tocopherol) 1.1 mg/L BN Reference Range: 0.5-5.5Reference intervals for alpha and gamma-tocopheroldetermined from National Health and Nutrition ExaminationSurvey, 6691-4272. Individuals with alpha-tocopherol levelsless than 5.0 mg/L are considered vitamin E deficient.Performed at: [address] [id number] Director: Kim Mayorga MD, Phone: [phone] at: [address] [id number] Director: Christian Alfaro PhD, Phone: [phone] Performed By: #### L 501.6710, L506.1001, L501.5000, L3410.9992, L3300.0100, L3410.9994, L3410.9996, L501.5200, L3300.8200, L7400.3000, L501.2300, L100.0500, L3300.9900, L503.0106, L500.4050 ####[facility] [address] [place], [address] Methylmalonic Acid Bldon METHYLMAL ACID 239 nmol/L Normal 0-378 [facility] Comment on above: Order Comment: Test( s) 161834-Kwireqjpfoygh Acid, Serumwas developed and its performance characteristicsdetermined by [employer]. It has not been cleared or approvedby the Food and Drug Administration. Result Comment: Perf ormed at: - [facility] [id number] Director: Kim Mayorga MD, Phone: [phone] Performed By: #### L 501.6710, L506.1001, L501.5000, L3410.9992, L3300.0100, L3410.9994, L3410.9996, L501.5200, L3300.8200, L7400.3000, L501.2300, L100.0500, L3300.9900, L503.0106, L500.4050 ####[facility] [address] [place], [address] Copper, Serum or Plasmaon COPPER, SERUM 131 ug/dL Normal 80-158 [facility] Comment on above: Order Comment: Test( s) 956629-Xeiyapp B6was developed and its performance characteristicsdetermined by [employer]. It has not been cleared or approvedby the Food and Drug Administration. Result Comment: Dete ction Limit = 5 Performed By: #### L 501.6710, L506.1001, L501.5000, L3410.9992, L3300.0100, L3410.9994, L3410.9996, L501.5200, L3300.8200, L7400.3000, L501.2300, L100.0500, L3300.9900, L503.0106, L500.4050 ####[facility] [address] [place], [place], [address] L3300.8200on 01-12-2025 VITAMIN B6 1.2 ug/L Low 3.4-65.2 [facility] Comment on above: Order Comment: Test( s) 204670-Objqqnz B6was developed and its performance characteristicsdetermined by [facility]. It has not been cleared or approvedby the Food and Drug Administration. Result Comment: Defi ciency: <3.4 Marginal: 3.4 - 5.1 Adequate: >5.1 Performed By: #### L 501.6710, L506.1001, L501.5000, L3410.9992, L3300.0100, L3410.9994, L3410.9996, L501.5200, L3300.8200, L7400.3000, L501.2300, L100.0500, L3300.9900, L503.0106, L500.4050 ####[facility] [address] [place], [address] L3410.9992on 01-12-2025 [facility] Misc. COMMENT Normal . [facility] Comment on above: Order Comment: [id number] 5WB MANGANESE - ROYAL BLUE - WB Result Comment: Test Ordered: [id number] Manganese, BloodTest(s) 871970-Efepgtyrs, Bloodwas developed and its performance characteristicsdetermined by [facility]. It has not been cleared or approvedby the Food and Drug Administration.Manganese, Blood 8.8 ug/L [facility] Reference Range: 8.0-18.7Performed at: [facility] [address], [place], [place] [id number] Director: Wendy Fowler MD, Phone: [phone] at: [facility] [employer] | [facility]izScoreNewton Medical CenterYsyrwy[address] [place], [place] [id number] Director: Christian Alfaro PhD, Phone: [phone] Performed By: #### L 501.6710, L506.1001, L501.5000, L3410.9992, L3300.0100, L3410.9994, L3410.9996, L501.5200, L3300.8200, L7400.3000, L501.2300, L100.0500, L3300.9900, L503.0106, L500.4050 ####[facility] [address] [place], [address] Zinc, Plasma or Serumon 12-25 ZINC,PLASMA/SER 71 ug/dL Normal 44-115 [facility] Comment on above: Order Comment: Test( s) 899386-Tmwtrrb B6was developed and its performance characteristicsdetermined by [employer]. It has not been cleared or approvedby the Food and Drug Administration. Result Comment: Dete ction Limit = 5Performed at: [facility] [employer] | [employer] [id number] Director: Kim Mayorga MD, Phone: [phone] Performed By: #### L 501.6710, L506.1001, L501.5000, L3410.9992, L3300.0100, L3410.9994, L3410.9996, L501.5200, L3300.8200, L7400.3000, L501.2300, L100.0500, L3300.9900, L503.0106, L500.4050 ####[facility] [address] [place], [address] Basic metabolic 2000 panelon 01-11-2025 Anion gap [Moles/Vol] 16 mmol/L High 8 - 15 mmol/L [facility] Calcium [Mass/Vol] 9.6 mg/dL 8.5 - 10. 2 mg/dL [facility] Chloride [Moles/Vol] 104 mmol/L 98 - 107 mmol/L [facility] CO2 [Moles/Vol] 21 mmol/L Low 22 - 30 mmol/L [facility] Creatinine [Mass/Vol] 0.91 mg/dL 0.58 - 0.96 mg/dL [facility] GFR/1.73 sq M.predicted among non-blacks MDRD (S/P/Bld) [Vol rate/Area] 81 mL/min/{1.73_m2} - PINF [facility] Comment on above: Estimated Glomerular Filtration [...] [Mass/Vol] 99 mg/dL 74 - 99 mg/dL [facility] Comment on above: The [place] Diabete s Association (ADA) provides guidance for [...] Standards of Medical Care in Diabetes 2016, [place] Diabetes Association. Diabetes Care. 2016.39(Suppl 1). Interpretation and review of laboratory results Abnormal [facility] Potassium [Moles/Vol] 3.4 mmol/L Low 3.7 - 5.1 mmol/L [facility] Sodium [Moles/Vol] 141 mmol/L 136 - 144 mmol/L [facility] Urea nitrogen [Mass/Vol] 17 mg/dL 7 - 21 mg/dL [facility] CBC W Auto Differential pane l (Bld)on 01-10-2025 Basophils (Bld) [#/Vol] 0.04 10*3/uL NINF [facility] Basophils/100 WBC (Bld) 0.5 % [facility] Differential cell count method Nom (Bld) Auto [facility] Eosinophils (Bld) [#/Vol] 0.16 10*3/uL [facility] Eosinophils/100 WBC (Bld) 2 % [facility] Erythrocyte distribution width (RBC) [Ratio] 16 % High 11.5 - 15.0 % [facility] Hematocrit (Bld) [Volume fraction] 37.7 % 36.0 - 46.0 % [facility] Hemoglobin (Bld) [Mass/Vol] 12.2 g/dL 11.5 - 15.5 g/dL [facility] Immature granulocytes (Bld) [#/Vol] 0.03 10*3/uL [facility] Immature granulocytes/100 WBC (Bld) 0.4 % [facility] Interpretation and review of laboratory results Abnormal [facility] Lymphocytes (Bld) [#/Vol] 2.59 10*3/uL [facility] Lymphocytes/100 WBC (Bld) 32.4 % [facility] MCH (RBC) [Entitic mass] 27 pg 26.0 - 34.0 pg [facility] MCHC (RBC) [Mass/Vol] 32.4 g/dL 30.5 - 36.0 g/dL [facility] MCV (RBC) [Entitic vol] 83.4 fL 80.0 - 100.0 fL [facility] Monocytes (Bld) [#/Vol] 0.63 10*3/uL [facility] Monocytes/100 WBC (Bld) 7.9 % [facility] Neutrophils (Bld) [#/Vol] 4.55 10*3/uL [facility] Neutrophils/100 WBC (Bld) 56.8 % [facility] Nucleated RBC (Bld) [#/Vol] [facility] Nucleated RBC/100 WBC (Bld) [Ratio] 0 % /100 WBC [facility] Platelet mean volume (Bld) [Entitic vol] 10.1 fL 9.0 - 12.7 fL [facility] Platelets (Bld) [#/Vol] 332 10*3/uL [facility] RBC (Bld) [#/Vol] 4.52 10*6/uL 3.90 - 5.2 0 m/uL [facility] WBC (Bld) [#/Vol] 8 10*3/uL [facility] PT panel Coag (PPP)on 2024 INR Coag (PPP) [Relative time] 1.1 {INR} 0.9 - 1.3 [facility] Comment on above: Vitamin K Antagonist (VKA) Therapeutic Range: INR 2 to 3 (Target INR of 2.5) Note: For patients treated with VKA drugs, such as warfarin, the [employer] 2012 Guideline recommends [...] Chest 2012, 141:7S-47S Markel RA, et al. [facility] 2017, 70: 252-289 Interpretation and review of laboratory results Normal [facility] PT Coag (PPP) [Time] 11.[address] [facility] CBC-Complete Blood Cnt No Di ffon 01-08-2025 Erythrocyte distribution width (RBC) [Ratio] 16.0 % High 11.6-14.6 [facility] Comment on above: Performed By: #### L 501.6710, L506.1001, L501.5000, L3410.9992, L3300.0100, L3410.9994, L3410.9996, L501.5200, L3300.8200, L7400.3000, L501.2300, L100.0500, L3300.9900, L503.0106, L500.4050 ####[facility] [address] [place], [place], [phone] Hematocrit (Bld) [Volume fraction] 35.9 % Low 37-47 [facility] Comment on above: Performed By: #### L 501.6710, L506.1001, L501.5000, L3410.9992, L3300.0100, L3410.9994, L3410.9996, L501.5200, L3300.8200, L7400.3000, L501.2300, L100.0500, L3300.9900, L503.0106, L500.4050 ####[facility] [address] [facility] [place], [address] Hemoglobin (Bld) [Mass/Vol] 11.9 g/dL Low 12.0-15.0 [facility] Comment on above: Performed By: #### L 501.6710, L506.1001, L501.5000, L3410.9992, L3300.0100, L3410.9994, L3410.9996, L501.5200, L3300.8200, L7400.3000, L501.2300, L100.0500, L3300.9900, L503.0106, L500.4050 ####[facility] [address] [place], [address] MCH (RBC) [Entitic mass] 27.1 pg Normal 27.0-32.0 [facility] Comment on above: Performed By: #### L 501.6710, L506.1001, L501.5000, L3410.9992, L3300.0100, L3410.9994, L3410.9996, L501.5200, L3300.8200, L7400.3000, L501.2300, L100.0500, L3300.9900, L503.0106, L500.4050 ####[facility] [address] [facility] [place], [address] MCHC (RBC) [Mass/Vol] 33.1 g/dL Normal 32-36 [facility] Comment on above: Performed By: #### L 501.6710, L506.1001, L501.5000, L3410.9992, L3300.0100, L3410.9994, L3410.9996, L501.5200, L3300.8200, L7400.3000, L501.2300, L100.0500, L3300.9900, L503.0106, L500.4050 ####[facility] [address] [place], [address] MCV (RBC) [Entitic vol] 81.8 fL Normal 81-99 [facility] Comment on above: Performed By: #### L 501.6710, L506.1001, L501.5000, L3410.9992, L3300.0100, L3410.9994, L3410.9996, L501.5200, L3300.8200, L7400.3000, L501.2300, L100.0500, L3300.9900, L503.0106, L500.4050 ####[facility] [address] [facility] [place], [address] Platelet mean volume (Bld) [Entitic vol] 9.7 fL Normal 6.2-12.0 [facility] Comment on above: Performed By: #### L 501.6710, L506.1001, L501.5000, L3410.9992, L3300.0100, L3410.9994, L3410.9996, L501.5200, L3300.8200, L7400.3000, L501.2300, L100.0500, L3300.9900, L503.0106, L500.4050 ####[facility] [address] [facility] [place], [address] Platelets (Bld) [#/Vol] 257 10*3/uL Normal 150-450 [facility] Comment on above: Performed By: #### L 501.6710, L506.1001, L501.5000, L3410.9992, L3300.0100, L3410.9994, L3410.9996, L501.5200, L3300.8200, L7400.3000, L501.2300, L100.0500, L3300.9900, L503.0106, L500.4050 ####[facility] [address] [place], [place], [id number] RBC (Bld) [#/Vol] 4.39 10*6/uL Normal 4.2-5.4 [facility] Comment on above: Performed By: #### L 501.6710, L506.1001, L501.5000, L3410.9992, L3300.0100, L3410.9994, L3410.9996, L501.5200, L3300.8200, L7400.3000, L501.2300, L100.0500, L3300.9900, L503.0106, L500.4050 ####[facility] [address] [place], [place], [phone] RDW SD 47.8 fl High 35.1-43.9 [facility] Comment on above: Performed By: #### L 501.6710, L506.1001, L501.5000, L3410.9992, L3300.0100, L3410.9994, L3410.9996, L501.5200, L3300.8200, L7400.3000, L501.2300, L100.0500, L3300.9900, L503.0106, L500.4050 ####[facility] [address] [place], [place], [phone] WBC (Bld) [#/Vol] 6.3 10*3/uL Normal 4.4-11.0 [facility] Comment on above: Performed By: #### L 501.6710, L506.1001, L501.5000, L3410.9992, L3300.0100, L3410.9994, L3410.9996, L501.5200, L3300.8200, L7400.3000, L501.2300, L100.0500, L3300.9900, L503.0106, L500.4050 ####[facility] [address] [place], [address] CRPon 01-08-2025 C-REACTIVE PROT 16.50 mg/L High 0.0-3.0 [facility] Comment on above: Performed By: #### L 501.6710, L506.1001, L501.5000, L3410.9992, L3300.0100, L3410.9994, L3410.9996, L501.5200, L3300.8200, L7400.3000, L501.2300, L100.0500, L3300.9900, L503.0106, L500.4050 ####[facility] [address] [place], [place], [phone] Comprehensive Metabolic Prof ilon 01-08-2025 Albumin [Mass/Vol] 3.5 g/dL Normal 3.5-5.0 [facility] Comment on above: Performed By: #### L 501.6710, L506.1001, L501.5000, L3410.9992, L3300.0100, L3410.9994, L3410.9996, L501.5200, L3300.8200, L7400.3000, L501.2300, L100.0500, L3300.9900, L503.0106, L500.4050 ####[facility] [address] [place], [place], [phone] Albumin/Globulin [Mass ratio] 0.9 {ratio} Normal 0.9-2.4 [facility] Comment on above: Performed By: #### L 501.6710, L506.1001, L501.5000, L3410.9992, L3300.0100, L3410.9994, L3410.9996, L501.5200, L3300.8200, L7400.3000, L501.2300, L100.0500, L3300.9900, L503.0106, L500.4050 ####[facility] [address] [place], [place], [phone] ALK PHOS 141 U/L High 35-104 [facility] Comment on above: Performed By: #### L 501.6710, L506.1001, L501.5000, L3410.9992, L3300.0100, L3410.9994, L3410.9996, L501.5200, L3300.8200, L7400.3000, L501.2300, L100.0500, L3300.9900, L503.0106, L500.4050 ####[facility] [address] [place], [address] ALT [Catalytic activity/Vol] 16 U/L Normal <=34 [facility] Comment on above: Performed By: #### L 501.6710, L506.1001, L501.5000, L3410.9992, L3300.0100, L3410.9994, L3410.9996, L501.5200, L3300.8200, L7400.3000, L501.2300, L100.0500, L3300.9900, L503.0106, L500.4050 ####[facility] [address] [place], [place], [phone] AST [Catalytic activity/Vol] 18 U/L Normal <=31 [facility] Comment on above: Performed By: #### L 501.6710, L506.1001, L501.5000, L3410.9992, L3300.0100, L3410.9994, L3410.9996, L501.5200, L3300.8200, L7400.3000, L501.2300, L100.0500, L3300.9900, L503.0106, L500.4050 ####[facility] [address] [place], [place], [phone] Bilirubin [Mass/Vol] 0.44 mg/dL Normal 0.00-1.30 [facility] Comment on above: Performed By: #### L 501.6710, L506.1001, L501.5000, L3410.9992, L3300.0100, L3410.9994, L3410.9996, L501.5200, L3300.8200, L7400.3000, L501.2300, L100.0500, L3300.9900, L503.0106, L500.4050 ####[facility] [address] [place], [address] BUN/CRE 17.3 RATIO Normal 10-20 [facility] Comment on above: Performed By: #### L 501.6710, L506.1001, L501.5000, L3410.9992, L3300.0100, L3410.9994, L3410.9996, L501.5200, L3300.8200, L7400.3000, L501.2300, L100.0500, L3300.9900, L503.0106, L500.4050 ####[facility] [address] [place], [place], [phone] Calcium [Mass/Vol] 9.0 mg/dL Normal 7.6-11.0 [facility] Comment on above: Performed By: #### L 501.6710, L506.1001, L501.5000, L3410.9992, L3300.0100, L3410.9994, L3410.9996, L501.5200, L3300.8200, L7400.3000, L501.2300, L100.0500, L3300.9900, L503.0106, L500.4050 ####[facility] [address] [place], [place], [phone] Chloride [Moles/Vol] 101 mmol/L Normal 98-108 [facility] Comment on above: Performed By: #### L 501.6710, L506.1001, L501.5000, L3410.9992, L3300.0100, L3410.9994, L3410.9996, L501.5200, L3300.8200, L7400.3000, L501.2300, L100.0500, L3300.9900, L503.0106, L500.4050 ####[facility] [address] [place], [place], [phone] CO2 [Moles/Vol] 19.2 mmol/L Low 21.0-32.0 [facility] Comment on above: Performed By: #### L 501.6710, L506.1001, L501.5000, L3410.9992, L3300.0100, L3410.9994, L3410.9996, L501.5200, L3300.8200, L7400.3000, L501.2300, L100.0500, L3300.9900, L503.0106, L500.4050 ####[facility] [address] [facility] [address] [place], [place], [phone] Creatinine [Mass/Vol] 0.99 mg/dL Normal 0.70-1.20 [facility] Comment on above: Performed By: #### L 501.6710, L506.1001, L501.5000, L3410.9992, L3300.0100, L3410.9994, L3410.9996, L501.5200, L3300.8200, L7400.3000, L501.2300, L100.0500, L3300.9900, L503.0106, L500.4050 ####[facility] [address] [place], [place], [phone] GAP 17 High 5-15 [facility] Comment on above: Performed By: #### L 501.6710, L506.1001, L501.5000, L3410.9992, L3300.0100, L3410.9994, L3410.9996, L501.5200, L3300.8200, L7400.3000, L501.2300, L100.0500, L3300.9900, L503.0106, L500.4050 ####[facility] [address] [facility] [place], [place], [phone] GFR/1.73 sq M.predicted among non-blacks MDRD (S/P/Bld) [Vol rate/Area] 73 mL/min/{1.73_m2} Normal >60 [facility] Comment on above: Result Comment: mL/m in/1.73m2 CKD-EPI Creatinine Equation (2020) Performed By: #### L 501.6710, L506.1001, L501.5000, L3410.9992, L3300.0100, L3410.9994, L3410.9996, L501.5200, L3300.8200, L7400.3000, L501.2300, L100.0500, L3300.9900, L503.0106, L500.4050 ####[facility] [address] [facility] [place], [place], [phone] Globulin (S) [Mass/Vol] 4.0 g/dL Normal 2.2-4.2 [facility] Comment on above: Performed By: #### L 501.6710, L506.1001, L501.5000, L3410.9992, L3300.0100, L3410.9994, L3410.9996, L501.5200, L3300.8200, L7400.3000, L501.2300, L100.0500, L3300.9900, L503.0106, L500.4050 ####[facility] [address] [place], [place], [phone] Glucose [Mass/Vol] 148 mg/dL High 70-99 [facility] Comment on above: Performed By: #### L 501.6710, L506.1001, L501.5000, L3410.9992, L3300.0100, L3410.9994, L3410.9996, L501.5200, L3300.8200, L7400.3000, L501.2300, L100.0500, L3300.9900, L503.0106, L500.4050 ####[facility] [address] [place], [place], [phone] Potassium [Moles/Vol] 2.6 mmol/L Invalid Interpretation Code 3.3-5.1 [facility] Comment on above: Result Comment: Crit ical Result(s) Called at: 1539 by:??CLAUDIA ALEXANDRE Results read back by same. Performed By: #### L 501.6710, L506.1001, L501.5000, L3410.9992, L3300.0100, L3410.9994, L3410.9996, L501.5200, L3300.8200, L7400.3000, L501.2300, L100.0500, L3300.9900, L503.0106, L500.4050 ####[facility] [address] [place], [place], [phone] Sodium [Moles/Vol] 137 mmol/L Normal 133-145 [facility] Comment on above: Performed By: #### L 501.6710, L506.1001, L501.5000, L3410.9992, L3300.0100, L3410.9994, L3410.9996, L501.5200, L3300.8200, L7400.3000, L501.2300, L100.0500, L3300.9900, L503.0106, L500.4050 ####[facility] [address] [place], [place], [id number] T PROT 7.4 g/dL Normal 5.9-8.4 [facility] Comment on above: Performed By: #### L 501.6710, L506.1001, L501.5000, L3410.9992, L3300.0100, L3410.9994, L3410.9996, L501.5200, L3300.8200, L7400.3000, L501.2300, L100.0500, L3300.9900, L503.0106, L500.4050 ####[facility] [address] [place], [place], [address] Urea nitrogen [Mass/Vol] 17 mg/dL Normal 4-19 [facility] Comment on above: Performed By: #### L 501.6710, L506.1001, L501.5000, L3410.9992, L3300.0100, L3410.9994, L3410.9996, L501.5200, L3300.8200, L7400.3000, L501.2300, L100.0500, L3300.9900, L503.0106, L500.4050 ####[facility] [address] [place], [place], [phone] Magnesiumon 01-08-2025 Magnesium [Mass/Vol] 2.1 mg/dL Normal 1.5-2.2 [facility] Comment on above: Performed By: #### L 501.6710, L506.1001, L501.5000, L3410.9992, L3300.0100, L3410.9994, L3410.9996, L501.5200, L3300.8200, L7400.3000, L501.2300, L100.0500, L3300.9900, L503.0106, L500.4050 ####[facility] [address] [facility] [place], [address] Phosphoruson 01-08-2025 Phosphate [Mass/Vol] 2.9 mg/dL Normal 2.7-4.5 [facility] Comment on above: Performed By: #### L 501.6710, L506.1001, L501.5000, L3410.9992, L3300.0100, L3410.9994, L3410.9996, L501.5200, L3300.8200, L7400.3000, L501.2300, L100.0500, L3300.9900, L503.0106, L500.4050 ####[facility] [address] [place], [address] Triglycerideson 01-08-2025 Triglyceride [Mass/Vol] 90 mg/dL Normal [facility] Comment on above: Result Comment: The drugs N-Acetylcysteine and Metamizole may falselydepress this assay.Normal range: <150 mg/dLBorderline High: 150-199 mg/dLHigh: 200-499 mg/dLVery High: >500 mg/dL Performed By: #### L 501.6710, L506.1001, L501.5000, L3410.9992, L3300.0100, L3410.9994, L3410.9996, L501.5200, L3300.8200, L7400.3000, L501.2300, L100.0500, L3300.9900, L503.0106, L500.4050 ####[facility] [address] [place], [place], [address] Vitamin B12on 01-08-2025 Cobalamin (Vitamin B12) [Mass/Vol] 381 pg/mL Normal 180-914 [facility] Comment on above: Performed By: #### L 501.6710, L506.1001, L501.5000, L3410.9992, L3300.0100, L3410.9994, L3410.9996, L501.5200, L3300.8200, L7400.3000, L501.2300, L100.0500, L3300.9900, L503.0106, L500.4050 ####[facility] [address] [place], [place], [id number] Vitamin D,25 Hydroxyon 01-08 Vitamin D 25-OH 8.9 ng/mL Low 30-100 [facility] Comment on above: Result Comment: Yamileth min D StatusDeficiency: <20 ng/mL (50nmol/L)Insufficiency: 20-30 ng/mL (50-75 nmol/L)Sufficiency: 30-100 ng/mL (75-250 nmol/L)Toxicity: >100 ng/mL (>250 nmol/L) Performed By: #### L 501.6710, L506.1001, L501.5000, L3410.9992, L3300.0100, L3410.9994, L3410.9996, L501.5200, L3300.8200, L7400.3000, L501.2300, L100.0500, L3300.9900, L503.0106, L500.4050 ####[facility] [address] [place], [address] CNPNon 01-04-2025 CNPN Normal [facility] CNPNon 01-03-2025 CNPN Normal [facility] CNPNon 01-02-2025 CNPN Normal [facility] CNPNon 01-01-2025 CNPN Normal [facility] CNOVon 12-31-2024 CNOV Normal [facility] CNPNon 12-25-2024 CNPN Normal [facility] CNPTOUTREACHon 12-25-2024 CNPTOUTREACH Normal [facility] CBC W/Diff, Automatedon 06- 0-2024 Absolute Lymph 2.63 X10 3/uL Normal 0.83-4.51 [facility] Comment on above: Performed By: #### L 501.2300, L501.5200, L500.4050, L100.0100 ####[facility] [address] [place], [address] Absolute Neut 7.8 X10 3/uL High 2.0-7.7 [facility] Comment on above: Performed By: #### L 501.2300, L501.5200, L500.4050, L100.0100 ####[facility] [address] [place], [address] Basophils/100 WBC (Bld) 0.4 % Normal 0-1 [facility] Comment on above: Performed By: #### L 501.2300, L501.5200, L500.4050, L100.0100 ####[facility] [address] [place], [address] Eosinophils/100 WBC (Bld) 2.6 % Normal 0-5 [facility] Comment on above: Performed By: #### L 501.2300, L501.5200, L500.4050, L100.0100 ####[facility] [address] [place], [address] Erythrocyte distribution width (RBC) [Ratio] 19.0 % High 11.6-14.6 [facility] Comment on above: Performed By: #### L 501.2300, L501.5200, L500.4050, L100.0100 ####[facility] [address] [place], [address] Hematocrit (Bld) [Volume fraction] 32.9 % Low 37-47 [facility] Comment on above: Performed By: #### L 501.2300, L501.5200, L500.4050, L100.0100 ####[facility] [address] [place], [address] Hemoglobin (Bld) [Mass/Vol] 10.4 g/dL Low 12.0-15.0 [facility] Comment on above: Performed By: #### L 501.2300, L501.5200, L500.4050, L100.0100 ####[facility] [address] [place], [address] IG% 0.600 Normal 0.0-0.9 [facility] Comment on above: Result Comment: IG% - Immature Granulocytes (promyelocytes, myelocytes andmetamyelocytes) > 1% indicates that a LEFT SHIFT is Present. Performed By: #### L 501.2300, L501.5200, L500.4050, L100.0100 ####[facility] [address] [place], [address] Lymphocytes/100 WBC (Bld) 22.8 % Normal 19-41 [facility] Comment on above: Performed By: #### L 501.2300, L501.5200, L500.4050, L100.0100 ####[facility] [address] [place], [address] MCH (RBC) [Entitic mass] 27.2 pg Normal 27.0-32.0 [facility] Comment on above: Performed By: #### L 501.2300, L501.5200, L500.4050, L100.0100 ####[facility] [address] [place], [address] MCHC (RBC) [Mass/Vol] 31.6 g/dL Low 32-36 [facility] Comment on above: Performed By: #### L 501.2300, L501.5200, L500.4050, L100.0100 ####[facility] [address] [place], [address] MCV (RBC) [Entitic vol] 85.9 fL Normal 81-99 [facility] Comment on above: Performed By: #### L 501.2300, L501.5200, L500.4050, L100.0100 ####[facility] [address] [place], [address] Monocytes/100 WBC (Bld) 5.7 % Normal 0-10 [facility] Comment on above: Performed By: #### L 501.2300, L501.5200, L500.4050, L100.0100 ####[facility] [address] [place], [address] Neutrophils/100 WBC (Bld) 67.9 % Normal 47-70 [facility] Comment on above: Performed By: #### L 501.2300, L501.5200, L500.4050, L100.0100 ####[facility] [address] [place], [address] Nucleated RBC (Bld) [#/Vol] 0 10*3/uL Normal 0-5 [facility] Comment on above: Performed By: #### L 501.2300, L501.5200, L500.4050, L100.0100 ####[facility] [address] [place], [address] Platelet mean volume (Bld) [Entitic vol] 9.2 fL Normal 6.2-12.0 [facility] Comment on above: Performed By: #### L 501.2300, L501.5200, L500.4050, L100.0100 ####[facility] [address] [place], [address] Platelets (Bld) [#/Vol] 500 10*3/uL High 150-450 [facility] Comment on above: Performed By: #### L 501.2300, L501.5200, L500.4050, L100.0100 ####[facility] [address] [place], [address] RBC (Bld) [#/Vol] 3.83 10*6/uL Low 4.2-5.4 [facility] Comment on above: Performed By: #### L 501.2300, L501.5200, L500.4050, L100.0100 ####[facility] [address] [place], [address] RDW SD 59.3 fl High 35.1-43.9 [facility] Comment on above: Performed By: #### L 501.2300, L501.5200, L500.4050, L100.0100 ####[facility] [address] [place], [address] WBC (Bld) [#/Vol] 11.5 10*3/uL High 4.4-11.0 [facility] Comment on above: Performed By: #### L 501.2300, L501.5200, L500.4050, L100.0100 ####[facility] [address] [place], [address] Comprehensive Metabolic Prof ilon 12-24-2024 Albumin [Mass/Vol] 3.6 g/dL Normal 3.5-5.0 [facility] Comment on above: Performed By: #### L 501.2300, L501.5200, L500.4050, L100.0100 ####[facility] [address] [place], [address] Albumin/Globulin [Mass ratio] 0.9 {ratio} Normal 0.9-2.4 [facility] Comment on above: Performed By: #### L 501.2300, L501.5200, L500.4050, L100.0100 ####[facility] [address] [place], [address] ALK PHOS 192 U/L High 35-104 [facility] Comment on above: Performed By: #### L 501.2300, L501.5200, L500.4050, L100.0100 ####[facility] [address] [place], [address] ALT [Catalytic activity/Vol] 77 U/L High <=34 [facility] Comment on above: Performed By: #### L 501.2300, L501.5200, L500.4050, L100.0100 ####[facility] [address] [place], [address] AST [Catalytic activity/Vol] 42 U/L High <=31 [facility] Comment on above: Performed By: #### L 501.2300, L501.5200, L500.4050, L100.0100 ####[facility] [address] [place], [address] Bilirubin [Mass/Vol] 0.28 mg/dL Normal 0.00-1.30 [facility] Comment on above: Performed By: #### L 501.2300, L501.5200, L500.4050, L100.0100 ####[facility] [address] [place], [address] BUN/CRE 25.0 RATIO High 10-20 [facility] Comment on above: Performed By: #### L 501.2300, L501.5200, L500.4050, L100.0100 ####[facility] [address] [place], [address] Calcium [Mass/Vol] 9.1 mg/dL Normal 7.6-11.0 [facility] Comment on above: Performed By: #### L 501.2300, L501.5200, L500.4050, L100.0100 ####[facility] [address] [place], [address] Chloride [Moles/Vol] 105 mmol/L Normal 98-108 [facility] Comment on above: Performed By: #### L 501.2300, L501.5200, L500.4050, L100.0100 ####[facility] [address] [place], [address] CO2 [Moles/Vol] 20.1 mmol/L Low 21.0-32.0 [facility] Comment on above: Performed By: #### L 501.2300, L501.5200, L500.4050, L100.0100 ####[facility] [address] [place], [address] Creatinine [Mass/Vol] 0.94 mg/dL Normal 0.70-1.20 [facility] Comment on above: Performed By: #### L 501.2300, L501.5200, L500.4050, L100.0100 ####[facility] [address] [place], [address] GAP 14 Normal 5-15 [facility] Comment on above: Performed By: #### L 501.2300, L501.5200, L500.4050, L100.0100 ####[facility] [address] [place], [address] GFR/1.73 sq M.predicted among non-blacks MDRD (S/P/Bld) [Vol rate/Area] 79 mL/min/{1.73_m2} Normal >60 [facility] Comment on above: Result Comment: mL/m in/1.73m2 CKD-EPI Creatinine Equation (2020) Performed By: #### L 501.2300, L501.5200, L500.4050, L100.0100 ####[facility] [address] [place], [address] Globulin (S) [Mass/Vol] 3.8 g/dL Normal 2.2-4.2 [facility] Comment on above: Performed By: #### L 501.2300, L501.5200, L500.4050, L100.0100 ####[facility] [address] [place], [address] Glucose [Mass/Vol] 104 mg/dL High 70-99 [facility] Comment on above: Performed By: #### L 501.2300, L501.5200, L500.4050, L100.0100 ####[facility] [address] [place], [address] Potassium [Moles/Vol] 3.7 mmol/L Normal 3.3-5.1 [facility] Comment on above: Performed By: #### L 501.2300, L501.5200, L500.4050, L100.0100 ####[facility] [address] [place], [address] Sodium [Moles/Vol] 139 mmol/L Normal 133-145 [facility] Comment on above: Performed By: #### L 501.2300, L501.5200, L500.4050, L100.0100 ####[facility] [address] [place], [address] T PROT 7.3 g/dL Normal 5.9-8.4 [facility] Comment on above: Performed By: #### L 501.2300, L501.5200, L500.4050, L100.0100 ####[facility] [address] [place], [address] Urea nitrogen [Mass/Vol] 23 mg/dL High 4-19 [facility] Comment on above: Performed By: #### L 501.2300, L501.5200, L500.4050, L100.0100 ####[facility] [address] [place], [address] Magnesiumon 12-24-2024 Magnesium [Mass/Vol] 2.1 mg/dL Normal 1.5-2.2 [facility] Comment on above: Performed By: #### L 501.2300, L501.5200, L500.4050, L100.0100 ####[facility] [address] [place], [address] Phosphoruson 12-24-2024 Phosphate [Mass/Vol] 3.7 mg/dL Normal 2.7-4.5 [facility] Comment on above: Performed By: #### L 501.2300, L501.5200, L500.4050, L100.0100 ####[facility] [address] [place], [address] CASE MANAGEMon 12-21-2024 CASE MANAGEM Normal [facility] CBC W Auto Differential pane l (Bld)on 12-21-2024 Basophils (Bld) [#/Vol] 0.03 10*3/uL Normal <0.11 [facility] Comment on above: Order Comment: Speci men Type: BLOOD SPECIMENOrdering Facility: [facility] Address: [address] [place] [address] Performed By: #### 5 7021-8 ####[facility] LABCLIA [id number] [facility] [address], [facility]95 [place] Basophils/100 WBC (Bld) 0.4 % Normal [facility] Comment on above: Order Comment: Speci men Type: BLOOD SPECIMENOrdering Facility: [facility] Address: [address] [place] [address] Performed By: #### 5 7021-8 ####[facility] LABCLIA [id number] [address], [place] [address] [place] Differential cell count method Nom (Bld) Auto Normal [facility] Comment on above: Order Comment: Speci men Type: BLOOD SPECIMENOrdering Facility: [facility] Address: [address] [place] [address] Performed By: #### 5 7021-8 ####[facility] LABCLIA [id number] [address], [facility]95 [place] Eosinophils (Bld) [#/Vol] 0.30 10*3/uL Normal <0.46 [facility] Comment on above: Order Comment: Speci men Type: BLOOD SPECIMENOrdering Facility: [facility] Address: [address] [place] [address] Performed By: #### 5 7021-8 ####[facility] LABCLIA [id number] [facility] [place] [id number] [place] Eosinophils/100 WBC (Bld) 4.0 % Normal [facility] Comment on above: Order Comment: Speci men Type: BLOOD SPECIMENOrdering Facility: [facility] Address: [address] [place] [address] Performed By: #### 5 7021-8 ####[facility] LABCLIA [id number] [place] [address] [place] Erythrocyte distribution width (RBC) [Ratio] 19.8 % High 11.5-15.0 [facility] Comment on above: Order Comment: Speci men Type: BLOOD SPECIMENOrdering Facility: [facility] Address: [address] [place] [address] Performed By: #### 5 7021-8 ####[facility] LABIA [id number] [place] [address] [place] Hematocrit (Bld) [Volume fraction] 30.5 % Low 36.0-46.0 [facility] Comment on above: Order Comment: Speci men Type: BLOOD SPECIMENOrdering Facility: [facility] Address: [address] [place] [address] Performed By: #### 5 7021-8 ####[facility] LABIA [id number] [place] [address] [place] Hemoglobin (Bld) [Mass/Vol] 9.7 g/dL Low 11.5-15.5 [facility] Comment on above: Order Comment: Speci men Type: BLOOD SPECIMENOrdering Facility: [facility] Address: [address] [place] [address] Performed By: #### 5 7021-8 ####[facility] LABIA [id number] [place] [address] [place] Immature granulocytes (Bld) [#/Vol] 0.05 10*3/uL Normal <0.10 [facility] Comment on above: Order Comment: Speci men Type: BLOOD SPECIMENOrdering Facility: [facility] Address: [address] [place] [address] Performed By: #### 5 7021-8 ####[facility] LABIA [id number] [place] [address] [place] Immature granulocytes/100 WBC (Bld) 0.7 % Normal [facility] Comment on above: Order Comment: Speci men Type: BLOOD SPECIMENOrdering Facility: [facility] Address: [address] [place] [address] Performed By: #### 5 7021-8 ####[facility] LABCLIA [id number] [place] [address] [place] Lymphocytes (Bld) [#/Vol] 1.12 10*3/uL Normal 1.00-4.00 [facility] Comment on above: Order Comment: Speci men Type: BLOOD SPECIMENOrdering Facility: [facility] Address: [address] [place] [address] Performed By: #### 5 7021-8 ####[facility] LABCLIA [id number] [address] [place] Lymphocytes/100 WBC (Bld) 14.9 % Normal [facility] Comment on above: Order Comment: Speci men Type: BLOOD SPECIMENOrdering Facility: [facility] Address: [address] [place] [address] Performed By: #### 5 7021-8 ####[facility] LABCLIA [id number] [place] [address] [place] MCH (RBC) [Entitic mass] 27.4 pg Normal 26.0-34.0 [facility] Comment on above: Order Comment: Speci men Type: BLOOD SPECIMENOrdering Facility: [facility] Address: [address] [place] [address] Performed By: #### 5 7021-8 ####[facility] LABCLIA [id number] [place] [address] [place] MCHC (RBC) [Mass/Vol] 31.8 g/dL Normal 30.5-36.0 [facility] Comment on above: Order Comment: Speci men Type: BLOOD SPECIMENOrdering Facility: [facility] Address: [address] [place] [address] Performed By: #### 5 7021-8 ####[facility] LABCLIA [id number] [place] [address] [place] MCV (RBC) [Entitic vol] 86.2 fL Normal 80.0-100.0 [facility] Comment on above: Order Comment: Speci men Type: BLOOD SPECIMENOrdering Facility: [facility] Address: [address] [place] [address] Performed By: #### 5 7021-8 ####[facility] LABCLIA [id number] [place] [address] [place] Monocytes (Bld) [#/Vol] 0.58 10*3/uL Normal <0.87 [facility] Comment on above: Order Comment: Speci men Type: BLOOD SPECIMENOrdering Facility: [facility] Address: [address] [place] [address] Performed By: #### 5 7021-8 ####[facility] LABIA [id number] [place] [address] [place] Monocytes/100 WBC (Bld) 7.7 % Normal [facility] Comment on above: Order Comment: Speci men Type: BLOOD SPECIMENOrdering Facility: [facility] Address: [address] [place] [address] Performed By: #### 5 7021-8 ####[facility] LABCLIA [id number] [address], [facility]95 [place] Neutrophils (Bld) [#/Vol] 5.45 10*3/uL Normal 1.45-7.50 [facility] Comment on above: Order Comment: Speci men Type: BLOOD SPECIMENOrdering Facility: [facility] Address: [address] [place] [address] Performed By: #### 5 7021-8 ####[facility] LABCLIA [id number] [place] [address] [place] Neutrophils/100 WBC (Bld) 72.3 % Normal [facility] Comment on above: Order Comment: Speci men Type: BLOOD SPECIMENOrdering Facility: [facility] Address: [address] [place] [address] Performed By: #### 5 7021-8 ####[facility] LABCLIA [id number] [place] [address] [place] Nucleated RBC (Bld) [#/Vol] 10*3/uL Normal <0.01 [facility] Comment on above: Order Comment: Speci men Type: BLOOD SPECIMENOrdering Facility: [facility] Address: [address] [place] [address] Performed By: #### 5 7021-8 ####[facility] LABCLIA [id number] [place] [address] [place] Nucleated RBC/100 WBC (Bld) [Ratio] 0.0 /100 WBC Normal [facility] Comment on above: Order Comment: Speci men Type: BLOOD SPECIMENOrdering Facility: [facility] Address: [address] [place] [address] Performed By: #### 5 7021-8 ####[facility] LABCLIA [id number] [place] [address] [place] Platelet mean volume (Bld) [Entitic vol] 9.7 fL Normal 9.0-12.7 [facility] Comment on above: Order Comment: Speci men Type: BLOOD SPECIMENOrdering Facility: [facility] Address: [address] [place] [address] Performed By: #### 5 7021-8 ####[facility] LABCLIA [id number] [place] [address] [place] Platelets (Bld) [#/Vol] 428 10*3/uL High 150-400 [facility] Comment on above: Order Comment: Speci men Type: BLOOD SPECIMENOrdering Facility: [facility] Address: [address] [place] [address] Performed By: #### 5 7021-8 ####[facility] LABCLIA [id number] [place] [address] [place] RBC (Bld) [#/Vol] 3.54 10*6/uL Low 3.90-5.20 [facility] Comment on above: Order Comment: Speci men Type: BLOOD SPECIMENOrdering Facility: [facility] Address: [address] [place] [address] Performed By: #### 5 7021-8 ####[facility] LABIA [id number] [place] [address] [place] WBC (Bld) [#/Vol] 7.53 10*3/uL Normal 3.70-11.00 [facility] Comment on above: Order Comment: Speci men Type: BLOOD SPECIMENOrdering Facility: [facility] Address: [address] [place] [address] Performed By: #### 5 7021-8 ####[facility] LABIA [id number] [place] [address] [place] CNCNPATEDon 12-21-2024 CNCNPATED Normal [facility] CNDSon 12-21-2024 CNDS Normal [facility] CNPNon 12-21-2024 CNPN Normal [facility] CONSULT PROGon 12-21-2024 CONSULT PROG Normal [facility] CONSULT PROG Normal [facility] CRP SerPl-mCncon 12-21-2024 CRP [Mass/Vol] 2.9 mg/dL High <0.9 [facility] Comment on above: Order Comment: Speci men Type: BLOOD SPECIMENOrdering Facility: [facility] Address: [address] [place] [address] Performed By: #### 1 988-5 ####[facility] LABCLIA [id number] [place] [address] [place] Comprehensive metabolic 2000 panelon 12-21-2024 Albumin [Mass/Vol] 2.9 g/dL Low 3.9-4.9 [facility] Comment on above: Order Comment: Speci men Type: BLOOD SPECIMENOrdering Facility: [facility] Address: [address] [place] [address] Performed By: #### 2 4323-8, 03653-5, 2776- ####[facility] LABCLIA [id number] [place] [address] [place] ALP [Catalytic activity/Vol] 123 U/L Normal 34-123 [facility] Comment on above: Order Comment: Speci men Type: BLOOD SPECIMENOrdering Facility: [facility] Address: [address] [place] [address] Performed By: #### 2 4323-8, , 2776- ####[facility] LABCLIA [id number] [place] [address] [place] ALT [Catalytic activity/Vol] 34 U/L Normal 7-38 [facility] Comment on above: Order Comment: Speci men Type: BLOOD SPECIMENOrdering Facility: [facility] Address: [address] [place] [address] Performed By: #### 2 4323-8, , 2776-06 ####[facility] LABCLIA [id number] [place] [address] [place] Anion gap [Moles/Vol] 9 mmol/L Normal 8-15 [facility] Comment on above: Order Comment: Speci men Type: BLOOD SPECIMENOrdering Facility: [facility] Address: [address] [place], [place] [address] Performed By: #### 2 4323-8, 34776-1, 2776- ####[facility] LABCLIA [id number] [address] [address] [place] AST [Catalytic activity/Vol] 26 U/L Normal 13-35 [facility] Comment on above: Order Comment: Speci men Type: BLOOD SPECIMENOrdering Facility: [facility] Address: [address] [place] [address] Performed By: #### 2 4323-8, , 2776-06 ####[facility] LABCLIA [id number] [place] [address] [place] Bilirubin [Mass/Vol] 0.2 mg/dL Normal 0.2-1.3 [facility] Comment on above: Order Comment: Speci men Type: BLOOD SPECIMENOrdering Facility: [facility] Address: [address] [place] [address] Performed By: #### 2 4323-8, , 2776-06 ####[facility] LABCLIA [id number] [place] [address] [place] Calcium [Mass/Vol] 9.1 mg/dL Normal 8.5-10.2 [facility] Comment on above: Order Comment: Speci men Type: BLOOD SPECIMENOrdering Facility: [facility] Address: [address] [place] [address] Performed By: #### 2 4323-8, , 2776-06 ####[facility] LABCLIA [id number] [place] [address] [place] Chloride [Moles/Vol] 105 mmol/L Normal 98-107 [facility] Comment on above: Order Comment: Speci men Type: BLOOD SPECIMENOrdering Facility: [facility] Address: [address] [place] [address] Performed By: #### 2 4323-8, , 2776-06 ####[facility] LABCLIA [id number] [address] [address] [place] CO2 [Moles/Vol] 23 mmol/L Normal 22-30 [facility] Comment on above: Order Comment: Speci men Type: BLOOD SPECIMENOrdering Facility: [facility] Address: [address] [place] [id number] Performed By: #### 2 4323-8, , 2776-06 ####[facility] LABCLIA [id number] [address] [address] [place] Creatinine [Mass/Vol] 0.70 mg/dL Normal 0.58-0.96 [facility] Comment on above: Order Comment: Speci men Type: BLOOD SPECIMENOrdering Facility: [facility] Address: [address] [place], [place] [address] Performed By: #### 2 4323-8, , 2776-06 ####[facility] LABIA [id number] [address] [address] [place] Creatinine and Glomerular filtration rate.predicted panel (S/P/Bld) 112 mL/min/1.73m??? Normal >=60 [facility] Comment on above: Order Comment: Speci men Type: BLOOD SPECIMENOrdering Facility: [facility] Address: [address] [place] [address] Result Comment: Zeny mated Glomerular Filtration Rate [...] Performed By: #### 2 4323-8, , 2776-06 ####[facility] LABIA [id number] [address] [address] [place] Glucose [Mass/Vol] 125 mg/dL High 74-99 [facility] Comment on above: Order Comment: Speci men Type: BLOOD SPECIMENOrdering Facility: [facility] Address: [address] [place] [id number] Result Comment: The [place] Diabetes Association (ADA) provides guidance for cutoff [...] Standards of Medical Care in Diabetes 2016, [place] [employer]. Diabetes Care. 2016.39(Suppl 1). Performed By: #### 2 4323-8, , 2776-06 ####[facility] LABIA [id number] [place] [address] [place] Potassium [Moles/Vol] 4.1 mmol/L Normal 3.7-5.1 [facility] Comment on above: Order Comment: Speci men Type: BLOOD SPECIMENOrdering Facility: [facility] Address: [address] [place] [address] Performed By: #### 2 4323-8, , 2776-06 ####[facility] LABIA [id number] [place] [address] [place] Protein [Mass/Vol] 6.2 g/dL Low 6.3-8.0 [facility] Comment on above: Order Comment: Speci men Type: BLOOD SPECIMENOrdering Facility: [facility] Address: [address] [place] [id number] Performed By: #### 2 4323-8, , 2776-06 ####[facility] LABIA [id number] [place] [address] [place] Sodium [Moles/Vol] 137 mmol/L Normal 136-144 [facility] Comment on above: Order Comment: Speci men Type: BLOOD SPECIMENOrdering Facility: [facility] Address: [address] [place] [address] Performed By: #### 2 4323-8, 61258-5, 2776- ####[facility] LABCLIA [id number] [address] [address] [place] Urea nitrogen [Mass/Vol] 15 mg/dL Normal 7-21 [facility] Comment on above: Order Comment: Speci men Type: BLOOD SPECIMENOrdering Facility: [facility] Address: [address] [place] [address] [place] [address] Performed By: #### 2 4323-8, 75076-4, 2776-06 ####[facility] LABCLIA [id number] [place] [address] [place] Magnesium SerPl-mCncon 12-21 Magnesium [Mass/Vol] 2.1 mg/dL Normal 1.7-2.3 [facility] Comment on above: Order Comment: Speci men Type: BLOOD SPECIMENOrdering Facility: [facility] Address: [address] [place], [place] [address] [address] Performed By: #### 2 4323-8, , 2776-06 ####[facility] LABCLIA [id number] [place] [address] [place] PT EDon 12-21-2024 PT ED Normal [facility] PT ED Normal [facility] Phosphate SerPl-mCncon 12-21 Phosphate [Mass/Vol] 4.4 mg/dL Normal 2.7-4.8 [facility] Comment on above: Order Comment: Speci men Type: BLOOD SPECIMENOrdering Facility: [facility] Address: [address] [place] [address] Performed By: #### 2 4323-8, 64869-8, 2776-06 ####[facility] LABCLIA [id number] [address] [address] [place] CASE MANAGEMon 12-20-2024 CASE MANAGEM Normal [facility] CASE MANAGEM Normal [facility] CBC W Auto Differential pane l (Bld)on 12-20-2024 Basophils (Bld) [#/Vol] 0.04 10*3/uL Normal <0.11 [facility] Comment on above: Order Comment: Speci men Type: BLOOD SPECIMENOrdering Facility: [facility] Address: [address] [place] [address] Performed By: #### 5 7021-8 ####[facility] LABCLIA [id number] [facility] [address], [place] [address] [place] Basophils/100 WBC (Bld) 0.5 % Normal [facility] Comment on above: Order Comment: Speci men Type: BLOOD SPECIMENOrdering Facility: [facility] Address: [address] [place] [address] Performed By: #### 5 7021-8 ####[facility] LABCLIA [id number] [place] [address] [place] Differential cell count method Nom (Bld) Auto Normal [facility] Comment on above: Order Comment: Speci men Type: BLOOD SPECIMENOrdering Facility: [facility] Address: [address] [place] [address] Performed By: #### 5 7021-8 ####[facility] LABCLIA [id number] [place] [address] [place] Eosinophils (Bld) [#/Vol] 0.25 10*3/uL Normal <0.46 [facility] Comment on above: Order Comment: Speci men Type: BLOOD SPECIMENOrdering Facility: [facility] Address: [address] [place] [address] Performed By: #### 5 7021-8 ####[facility] LABCLIA [id number] [facility] [place] [id number] [place] Eosinophils/100 WBC (Bld) 3.4 % Normal [facility] Comment on above: Order Comment: Speci men Type: BLOOD SPECIMENOrdering Facility: [facility] Address: [address] [place] [address] Performed By: #### 5 7021-8 ####[facility] LABIA [id number] [place] [address] [place] Erythrocyte distribution width (RBC) [Ratio] 20.0 % High 11.5-15.0 [facility] Comment on above: Order Comment: Speci men Type: BLOOD SPECIMENOrdering Facility: [facility] Address: [address] [place] [address] Performed By: #### 5 7021-8 ####[facility] LABIA [id number] [place] [address] [place] Hematocrit (Bld) [Volume fraction] 26.9 % Low 36.0-46.0 [facility] Comment on above: Order Comment: Speci men Type: BLOOD SPECIMENOrdering Facility: [facility] Address: [address] [place] [address] Performed By: #### 5 7021-8 ####[facility] LABIA [id number] [place] [address] [place] Hemoglobin (Bld) [Mass/Vol] 8.6 g/dL Low 11.5-15.5 [facility] Comment on above: Order Comment: Speci men Type: BLOOD SPECIMENOrdering Facility: [facility] [facility] Address: [address] [place] [address] Performed By: #### 5 7021-8 ####[facility] LABCLIA [id number] [place] [address] [place] Immature granulocytes (Bld) [#/Vol] 0.05 10*3/uL Normal <0.10 [facility] Comment on above: Order Comment: Speci men Type: BLOOD SPECIMENOrdering Facility: [facility] Address: [address] [place] [address] Performed By: #### 5 7021-8 ####[facility] LABIA [id number] [place] [address] [place] Immature granulocytes/100 WBC (Bld) 0.7 % Normal [facility] Comment on above: Order Comment: Speci men Type: BLOOD SPECIMENOrdering Facility: [facility] Address: [address] [place] [address] Performed By: #### 5 7021-8 ####[facility] LABIA [id number] [place] [address] [place] Lymphocytes (Bld) [#/Vol] 1.26 10*3/uL Normal 1.00-4.00 [facility] Comment on above: Order Comment: Speci men Type: BLOOD SPECIMENOrdering Facility: [facility] Address: [address] [place] [address] Performed By: #### 5 7021-8 ####[facility] LABIA [id number] [address] [place] Lymphocytes/100 WBC (Bld) 17.0 % Normal [facility] Comment on above: Order Comment: Speci men Type: BLOOD SPECIMENOrdering Facility: [facility] Address: [address] [place] [address] Performed By: #### 5 7021-8 ####[facility] LABIA [id number] [place] [address] [place] MCH (RBC) [Entitic mass] 27.0 pg Normal 26.0-34.0 [facility] Comment on above: Order Comment: Speci men Type: BLOOD SPECIMENOrdering Facility: [facility] Address: [address] [place] [address] Performed By: #### 5 7021-8 ####[facility] LABIA [id number] [place] [address] [place] MCHC (RBC) [Mass/Vol] 32.0 g/dL Normal 30.5-36.0 [facility] Comment on above: Order Comment: Speci men Type: BLOOD SPECIMENOrdering Facility: [facility] Address: [address] [place] [address] Performed By: #### 5 7021-8 ####[facility] LABIA [id number] [place] [address] [place] MCV (RBC) [Entitic vol] 84.6 fL Normal 80.0-100.0 [facility] Comment on above: Order Comment: Speci men Type: BLOOD SPECIMENOrdering Facility: [facility] Address: [address] [place] [address] Performed By: #### 5 7021-8 ####[facility] LABIA [id number] [place] [address] [place] Monocytes (Bld) [#/Vol] 0.50 10*3/uL Normal <0.87 [facility] Comment on above: Order Comment: Speci men Type: BLOOD SPECIMENOrdering Facility: [facility] Address: [address] [place] [address] Performed By: #### 5 7021-8 ####[facility] LABIA [id number] [place] [address] [place] Monocytes/100 WBC (Bld) 6.7 % Normal [facility] Comment on above: Order Comment: Speci men Type: BLOOD SPECIMENOrdering Facility: [facility] Address: [address] [place] [address] Performed By: #### 5 7021-8 ####[facility] LABIA [id number] [place] [address] [place] Neutrophils (Bld) [#/Vol] 5.33 10*3/uL Normal 1.45-7.50 [facility] Comment on above: Order Comment: Speci men Type: BLOOD SPECIMENOrdering Facility: [facility] Address: [address] [place] [address] Performed By: #### 5 7021-8 ####[facility] LABCLIA [id number] [place] [address] [place] Neutrophils/100 WBC (Bld) 71.7 % Normal [facility] Comment on above: Order Comment: Speci men Type: BLOOD SPECIMENOrdering Facility: [facility] Address: [address] [place] [address] Performed By: #### 5 7021-8 ####[facility] LABCLIA [id number] [place] [address] [place] Nucleated RBC (Bld) [#/Vol] 10*3/uL Normal <0.01 [facility] Comment on above: Order Comment: Speci men Type: BLOOD SPECIMENOrdering Facility: [facility] Address: [address] [place] [address] Performed By: #### 5 7021-8 ####[facility] LABCLIA [id number] [place] [address] [place] Nucleated RBC/100 WBC (Bld) [Ratio] 0.0 /100 WBC Normal [facility] Comment on above: Order Comment: Speci men Type: BLOOD SPECIMENOrdering Facility: [facility] Address: [address] [place] [address] Performed By: #### 5 7021-8 ####[facility] LABCLIA [id number] [place] [address] [place] Platelet mean volume (Bld) [Entitic vol] 9.2 fL Normal 9.0-12.7 [facility] Comment on above: Order Comment: Speci men Type: BLOOD SPECIMENOrdering Facility: [facility] Address: [address] [place] [address] Performed By: #### 5 7021-8 ####[facility] LABCLIA [id number] [place] [address] [place] Platelets (Bld) [#/Vol] 365 10*3/uL Normal 150-400 [facility] Comment on above: Order Comment: Speci men Type: BLOOD SPECIMENOrdering Facility: [facility] Address: [address] [place] [address] Performed By: #### 5 7021-8 ####[facility] LABCLIA [id number] [address] [address] [place] RBC (Bld) [#/Vol] 3.18 10*6/uL Low 3.90-5.20 [facility] Comment on above: Order Comment: Speci men Type: BLOOD SPECIMENOrdering Facility: [facility] Address: [address] [place] [address] Performed By: #### 5 7021-8 ####[facility] LABCLIA [id number] [place] [address] [place] WBC (Bld) [#/Vol] 7.43 10*3/uL Normal 3.70-11.00 [facility] Comment on above: Order Comment: Speci men Type: BLOOD SPECIMENOrdering Facility: [facility] Address: [address] [place] [address] Performed By: #### 5 7021-8 ####[facility] LABCLIA [id number] [address] [address] [place] CONSULTon 12-20-2024 CONSULT Normal [facility] CONSULT Normal [facility] CONSULT PROGon 12-20-2024 CONSULT PROG Normal [facility] Comprehensive metabolic 2000 panelon 12-20-2024 Albumin [Mass/Vol] 2.7 g/dL Low 3.9-4.9 [facility] Comment on above: Order Comment: Speci men Type: BLOOD SPECIMENOrdering Facility: [facility] Address: [address] [place] [address] Performed By: #### 2 4323-8, 34506-2, 2777-1 ####[facility] LABCLIA [id number] [place] [address] [place] ALP [Catalytic activity/Vol] 95 U/L Normal 34-123 [facility] Comment on above: Order Comment: Speci men Type: BLOOD SPECIMENOrdering Facility: [facility] Address: [address] [place] [address] Performed By: #### 2 4323-8, 13483-5, 2776-06 ####[facility] LABCLIA [id number] [place] [address] [place] ALT [Catalytic activity/Vol] 23 U/L Normal 7-38 [facility] Comment on above: Order Comment: Speci men Type: BLOOD SPECIMENOrdering Facility: [facility] Address: [address] [place] [address] Performed By: #### 2 4323-8, , 2776-06 ####[facility] LABCLIA [id number] [place] [address] [place] Anion gap [Moles/Vol] 11 mmol/L Normal 8-15 [facility] Comment on above: Order Comment: Speci men Type: BLOOD SPECIMENOrdering Facility: [facility] Address: [address] [place] [address] Performed By: #### 2 4323-8, , 2776-06 ####[facility] LABIA [id number] [address] [place] AST [Catalytic activity/Vol] 20 U/L Normal 13-35 [facility] Comment on above: Order Comment: Speci men Type: BLOOD SPECIMENOrdering Facility: [facility] Address: [address] [place], [place] [address] Performed By: #### 2 4323-8, , 2776-06 ####[facility] LABCLIA [id number] [address] [address] [place] Bilirubin [Mass/Vol] 0.2 mg/dL Normal 0.2-1.3 [facility] Comment on above: Order Comment: Speci men Type: BLOOD SPECIMENOrdering Facility: [facility] Address: [address] [place] [address] Performed By: #### 2 4323-8, , 2776-06 ####[facility] LABCLIA [id number] [facility] [address] [address] [place] Calcium [Mass/Vol] 8.8 mg/dL Normal 8.5-10.2 [facility] Comment on above: Order Comment: Speci men Type: BLOOD SPECIMENOrdering Facility: [facility] Address: [address] [place], [place] [address] Performed By: #### 2 4323-8, , 2776-06 ####[facility] LABCLIA [id number] [address] [address] [place] Chloride [Moles/Vol] 106 mmol/L Normal 98-107 [facility] Comment on above: Order Comment: Speci men Type: BLOOD SPECIMENOrdering Facility: [facility] Address: [address] [place], [place] [address] Performed By: #### 2 4323-8, , 2776-06 ####[facility] LABCLIA [id number] [address] [address] [place] CO2 [Moles/Vol] 22 mmol/L Normal 22-30 [facility] Comment on above: Order Comment: Speci men Type: BLOOD SPECIMENOrdering Facility: [facility] Address: [address] [place] [address] Performed By: #### 2 4323-8, , 2776-06 ####[facility] LABCLIA [id number] [address] [address] [place] Creatinine [Mass/Vol] 0.68 mg/dL Normal 0.58-0.96 [facility] Comment on above: Order Comment: Speci men Type: BLOOD SPECIMENOrdering Facility: [facility] Address: [address] [place] [address] Performed By: #### 2 4323-8, 03035-9, 2777-1 ####[facility] LABIA [id number] [place] [address] [place] Creatinine and Glomerular filtration rate.predicted panel (S/P/Bld) 112 mL/min/1.73m??? Normal >=60 [facility] Comment on above: Order Comment: Dora finch Type: BLOOD SPECIMENOrdering Facility: [facility] Address: [address] [place] [address] Result Comment: Zeny mated Glomerular Filtration Rate [...] actual GFR. Performed By: #### 2 4323-8, 14433-7, 277- ####[facility] LABIA [id number] [place] [address] [place] Glucose [Mass/Vol] 127 mg/dL High 74-99 [facility] Comment on above: Order Comment: Dora finch Type: BLOOD SPECIMENOrdering Facility: [facility] Address: [address] [place] [address] Result Comment: The [place] Diabetes [employer] (ADA) provides guidance for cutoff [...] Standards of Medical Care in Diabetes 2016, [place] [employer]. Diabetes Care. 2016.39(Suppl 1). Performed By: #### 2 4323-8, , 2776-06 ####[facility] LABCLIA [id number] [address] [address] [place] Potassium [Moles/Vol] 4.0 mmol/L Normal 3.7-5.1 [facility] Comment on above: Order Comment: Speci men Type: BLOOD SPECIMENOrdering Facility: [facility] Address: [address] [place] [address] Performed By: #### 2 4323-8, , 2776-06 ####[facility] LABIA [id number] [address] [address] [place] Protein [Mass/Vol] 5.9 g/dL Low 6.3-8.0 [facility] Comment on above: Order Comment: Speci men Type: BLOOD SPECIMENOrdering Facility: [facility] Address: [address] [place] [address] Performed By: #### 2 4323-8, , 2776-06 ####[facility] LABIA [id number] [address] [address] [place] Sodium [Moles/Vol] 139 mmol/L Normal 136-144 [facility] Comment on above: Order Comment: Speci men Type: BLOOD SPECIMENOrdering Facility: [facility] Address: [address] [place], [place] [address] Performed By: #### 2 4323-8, , 2776-06 ####[facility] LABIA [id number] [address] [address] [place] Urea nitrogen [Mass/Vol] 10 mg/dL Normal 7-21 [facility] Comment on above: Order Comment: Speci men Type: BLOOD SPECIMENOrdering Facility: [facility] Address: [address] [place], [place] [address] Performed By: #### 2 4323-8, , 2776-06 ####[facility] LABCLIA [id number] [address] [place] [address] [place] Magnesium [facility] Magnesium [Mass/Vol] 1.9 mg/dL Normal 1.7-2.3 [facility] Comment on above: Order Comment: Speci men Type: BLOOD SPECIMENOrdering Facility: [facility] Address: [address] [place] [address] Performed By: #### 2 4323-8, , 2776-06 ####[facility] LABCLIA [id number] [place] [address] [place] NUTRITIONon 12-20-2024 NUTRITION Normal [facility] Phosphate SerPl-ncon 12-20 Phosphate [Mass/Vol] 4.6 mg/dL Normal 2.7-4.8 [facility] Comment on above: Order Comment: Speci men Type: BLOOD SPECIMENOrdering Facility: [facility] Address: [address] [place] [address] Performed By: #### 2 4323-8, , 2776-06 ####[facility] LABCLIA [id number] [place] [address] [place] CASE MANAGEMon 12-19-2024 CASE MANAGEM Normal [facility] CBC W Auto Differential pane l (Bld)on 12-19-2024 Basophils (Bld) [#/Vol] 10*3/uL Normal <0.11 [facility] Comment on above: Order Comment: Speci men Type: BLOOD SPECIMENOrdering Facility: [facility] Address: [address] [place] [address] Performed By: #### 5 7021-8 ####[facility] LABCLIA [id number] [address], [facility]95 [place] Basophils/100 WBC (Bld) 0.3 % Normal [facility] Comment on above: Order Comment: Speci men Type: BLOOD SPECIMENOrdering Facility: [facility] Address: [address] [place] [address] Performed By: #### 5 7021-8 ####[facility] LABCLIA [id number] [place] [address] [place] Differential cell count method Nom (Bld) Auto Normal [facility] Comment on above: Order Comment: Speci men Type: BLOOD SPECIMENOrdering Facility: [facility] Address: [address] [place] [address] Performed By: #### 5 7021-8 ####[facility] LABCLIA [id number] [place] [address] [place] Eosinophils (Bld) [#/Vol] 0.24 10*3/uL Normal <0.46 [facility] Comment on above: Order Comment: Speci men Type: BLOOD SPECIMENOrdering Facility: [facility] Address: [address] [place] [address] Performed By: #### 5 7021-8 ####[facility] LABCLIA [id number] [place] [address] [place] Eosinophils/100 WBC (Bld) 3.0 % Normal [facility] Comment on above: Order Comment: Speci men Type: BLOOD SPECIMENOrdering Facility: [facility] Address: [address] [place] [address] Performed By: #### 5 7021-8 ####[facility] LABCLIA [id number] [place] [address] [place] Erythrocyte distribution width (RBC) [Ratio] 19.9 % High 11.5-15.0 [facility] Comment on above: Order Comment: Speci men Type: BLOOD SPECIMENOrdering Facility: [facility] Address: [address] [place] [address] Performed By: #### 5 7021-8 ####[facility] LABCLIA [id number] [place] [address] [place] Hematocrit (Bld) [Volume fraction] 26.4 % Low 36.0-46.0 [facility] Comment on above: Order Comment: Speci men Type: BLOOD SPECIMENOrdering Facility: [facility] Address: [address] [place] [address] Performed By: #### 5 7021-8 ####[facility] LABCLIA [id number] [place] [address] [place] Hemoglobin (Bld) [Mass/Vol] 8.5 g/dL Low 11.5-15.5 [facility] Comment on above: Order Comment: Speci men Type: BLOOD SPECIMENOrdering Facility: [facility] Address: [address] [place] [address] Performed By: #### 5 7021-8 ####[facility] LABCLIA [id number] [place] [address] [place] Immature granulocytes (Bld) [#/Vol] 0.05 10*3/uL Normal <0.10 [facility] Comment on above: Order Comment: Speci men Type: BLOOD SPECIMENOrdering Facility: [facility] Address: [address] [place] [address] Performed By: #### 5 7021-8 ####[facility] LABCLIA [id number] [place] [address] [place] Immature granulocytes/100 WBC (Bld) 0.6 % Normal [facility] Comment on above: Order Comment: Speci men Type: BLOOD SPECIMENOrdering Facility: [facility] Address: [address] [place] [address] Performed By: #### 5 7021-8 ####[facility] LABCLIA [id number] [place] [address] [place] Lymphocytes (Bld) [#/Vol] 1.35 10*3/uL Normal 1.00-4.00 [facility] Comment on above: Order Comment: Speci men Type: BLOOD SPECIMENOrdering Facility: [facility] Address: [address] [place] [address] Performed By: #### 5 7021-8 ####[facility] LABIA [id number] [place] [address] [place] Lymphocytes/100 WBC (Bld) 17.1 % Normal [facility] Comment on above: Order Comment: Speci men Type: BLOOD SPECIMENOrdering Facility: [facility] Address: [address] [place] [address] Performed By: #### 5 7021-8 ####[facility] [id number] [place] [address] [place] MCH (RBC) [Entitic mass] 27.3 pg Normal 26.0-34.0 [facility] Comment on above: Order Comment: Speci men Type: BLOOD SPECIMENOrdering Facility: [facility] Address: [address] [place] [address] Performed By: #### 5 7021-8 ####[facility] [id number] [place] [address] [place] MCHC (RBC) [Mass/Vol] 32.2 g/dL Normal 30.5-36.0 [facility] Comment on above: Order Comment: Speci men Type: BLOOD SPECIMENOrdering Facility: [facility] Address: [address] [place] [address] Performed By: #### 5 7021-8 ####[facility] [id number] [place] [address] [place] MCV (RBC) [Entitic vol] 84.9 fL Normal 80.0-100.0 [facility] Comment on above: Order Comment: Speci men Type: BLOOD SPECIMENOrdering Facility: [facility] Address: [address] [place] [address] Performed By: #### 5 7021-8 ####[facility] LABCLIA [id number] [facility] [address] [place] [address] [place] Monocytes (Bld) [#/Vol] 0.67 10*3/uL Normal <0.87 [facility] Comment on above: Order Comment: Speci men Type: BLOOD SPECIMENOrdering Facility: [facility] Address: [address] [place] [address] Performed By: #### 5 7021-8 ####[facility] LABCLIA [id number] [facility] [address], [facility]95 [place] Monocytes/100 WBC (Bld) 8.5 % Normal [facility] Comment on above: Order Comment: Speci men Type: BLOOD SPECIMENOrdering Facility: [facility] Address: [address] [place] [address] Performed By: #### 5 7021-8 ####[facility] LABCLIA [id number] [facility] [address], [place] [address] [place] Neutrophils (Bld) [#/Vol] 5.58 10*3/uL Normal 1.45-7.50 [facility] Comment on above: Order Comment: Speci men Type: BLOOD SPECIMENOrdering Facility: [facility] Address: [address] [place] [address] Performed By: #### 5 7021-8 ####[facility] LABCLIA [id number] [facility] [address], [facility]95 [place] Neutrophils/100 WBC (Bld) 70.5 % Normal [facility] Comment on above: Order Comment: Speci men Type: BLOOD SPECIMENOrdering Facility: [facility] Address: [address] [place] [address] Performed By: #### 5 7021-8 ####[facility] LABCLIA [id number] [facility] [address] [place] [address] [place] Nucleated RBC (Bld) [#/Vol] 10*3/uL Normal <0.01 [facility] Comment on above: Order Comment: Speci men Type: BLOOD SPECIMENOrdering Facility: [facility] Address: [address] [place] [address] Performed By: #### 5 7021-8 ####[facility] LABIA [id number] [place] [address] [place] Nucleated RBC/100 WBC (Bld) [Ratio] 0.0 /100 WBC Normal [facility] Comment on above: Order Comment: Speci men Type: BLOOD SPECIMENOrdering Facility: [facility] Address: [address] [place] [address] Performed By: #### 5 7021-8 ####[facility] LABIA [id number] [place] [address] [place] Platelet mean volume (Bld) [Entitic vol] 9.7 fL Normal 9.0-12.7 [facility] Comment on above: Order Comment: Speci men Type: BLOOD SPECIMENOrdering Facility: [facility] Address: [address] [place] [address] Performed By: #### 5 7021-8 ####[facility] [id number] [place] [address] [place] Platelets (Bld) [#/Vol] 362 10*3/uL Normal 150-400 [facility] Comment on above: Order Comment: Speci men Type: BLOOD SPECIMENOrdering Facility: [facility] Address: [address] [place] [address] Performed By: #### 5 7021-8 ####[facility] [id number] [place] [address] [place] RBC (Bld) [#/Vol] 3.11 10*6/uL Low 3.90-5.20 [facility] Comment on above: Order Comment: Speci men Type: BLOOD SPECIMENOrdering Facility: [facility] Address: [address] [place] [address] Performed By: #### 5 7021-8 ####[facility] LABCLIA [id number] [address] [address] [place] WBC (Bld) [#/Vol] 7.91 10*3/uL Normal 3.70-11.00 [facility] Comment on above: Order Comment: Speci men Type: BLOOD SPECIMENOrdering Facility: [facility] Address: [address] [place], [place] [id number] Performed By: #### 5 7021-8 ####[facility] [facility] [id number] [place] [id number] [place] CONSULT PROGon 12-19-2024 CONSULT PROG Normal [facility] CRP SerPl-mCncon 12-19-2024 CRP [Mass/Vol] 5.7 mg/dL High <0.9 [facility] Comment on above: Order Comment: Speci men Type: BLOOD SPECIMENOrdering Facility: [facility] Address: [address] [place], [place] [address] Performed By: #### 1 9123-9, 27712-25, 1987-10, ####[facility] [id number] [place] [id number] [place] Comprehensive metabolic 2000 panelon 12-19-2024 Albumin [Mass/Vol] 2.8 g/dL Low 3.9-4.9 [facility] Comment on above: Order Comment: Speci men Type: BLOOD SPECIMENOrdering Facility: [facility] Address: [address] [place], [place] [address] Performed By: #### 1 9123-9, 27712-25, 1987-10, ####[facility] [id number] [place] [address] [place] ALP [Catalytic activity/Vol] 85 U/L Normal 34-123 [facility] Comment on above: Order Comment: Speci men Type: BLOOD SPECIMENOrdering Facility: [facility] Address: [address] [place] [address] Performed By: #### 1 9123-9, 2776-06, 1987-10, ####[facility]IA [id number] [address] [address] [place] ALT [Catalytic activity/Vol] 12 U/L Normal 7-38 [facility] Comment on above: Order Comment: Speci men Type: BLOOD SPECIMENOrdering Facility: [facility] Address: [address] [place], [place] [address] Performed By: #### 1 9123-9, 27712-25, 1987-10, ####[facility] [id number] [place] [address] [place] Anion gap [Moles/Vol] 11 mmol/L Normal 8-15 [facility] Comment on above: Order Comment: Speci men Type: BLOOD SPECIMENOrdering Facility: [facility] Address: [address] [place] [address] Performed By: #### 1 9123-9, 2776-06, 1987-10, ####[facility]IA [id number] [place] [address] [place] AST [Catalytic activity/Vol] 12 U/L Low 13-35 [facility] Comment on above: Order Comment: Speci men Type: BLOOD SPECIMENOrdering Facility: [facility] Address: [address] [place], [place] [address] Performed By: #### 1 9123-9, 2776-06, 1987-10, ####[facility] [id number] [address] [address] [place] Bilirubin [Mass/Vol] 0.3 mg/dL Normal 0.2-1.3 [facility] Comment on above: Order Comment: Speci men Type: BLOOD SPECIMENOrdering Facility: [facility] Address: [address] [place] [address], [place] [address] Performed By: #### 1 9123-9, 27712-25, 1987-10, ####[facility] [id number] [address] [address] [place] Calcium [Mass/Vol] 8.6 mg/dL Normal 8.5-10.2 [facility] Comment on above: Order Comment: Speci men Type: BLOOD SPECIMENOrdering Facility: [facility] Address: [address] [place], [place] [address] Performed By: #### 1 9123-9, 27712-25, 1987-10, ####[facility] [id number] [address] [address] [place] Chloride [Moles/Vol] 104 mmol/L Normal 98-107 [facility] Comment on above: Order Comment: Speci men Type: BLOOD SPECIMENOrdering Facility: [facility] Address: [address] [place], [place] [address] Performed By: #### 1 9123-9, 2776-06, 1987-10, ####[facility] [id number] [address] [address] [place] CO2 [Moles/Vol] 22 mmol/L Normal 22-30 [facility] Comment on above: Order Comment: Speci men Type: BLOOD SPECIMENOrdering Facility: [facility] Address: [address] [place] [address] Performed By: #### 1 9123-9, 27712-25, 1987-10, ####[facility]IA [id number] [address] [address] [place] Creatinine [Mass/Vol] 0.64 mg/dL Normal 0.58-0.96 [facility] Comment on above: Order Comment: Speci men Type: BLOOD SPECIMENOrdering Facility: [facility] Address: [address] [place] [address] Performed By: #### 1 9123-9, 27712-25, 1987-10, ####[facility] [id number] [place] [address] [place] Creatinine and Glomerular filtration rate.predicted panel (S/P/Bld) 114 mL/min/1.73m??? Normal >=60 [facility] Comment on above: Order Comment: Dora finch Type: BLOOD SPECIMENOrdering Facility: [facility] Address: [address] [place] [address] Result Comment: Zeny mated Glomerular Filtration Rate [...] actual GFR. Performed By: #### 1 9123-9, 2776-06, ####[facility] [id number] [place] [address] [place] Glucose [Mass/Vol] 103 mg/dL High 74-99 [facility] Comment on above: Order Comment: Dora finch Type: BLOOD SPECIMENOrdering Facility: [facility] Address: [address] [place] [address] Result Comment: The [place] [employer] (ADA) provides guidance for cutoff [...] Standards of Medical Care in Diabetes 2016, [place] [employer]. Diabetes Care. 2016.39(Suppl 1). Performed By: #### 1 9123-9, 27712-25, 1987-10, ####[facility]IA [id number] [address] [address] [place] Potassium [Moles/Vol] 3.6 mmol/L Low 3.7-5.1 [facility] Comment on above: Order Comment: Speci men Type: BLOOD SPECIMENOrdering Facility: [facility] Address: [address] [place] [address] Performed By: #### 1 9123-9, 27712-25, 1987-10, ####[facility] [id number] [address] [address] [place] Protein [Mass/Vol] 5.5 g/dL Low 6.3-8.0 [facility] Comment on above: Order Comment: Speci men Type: BLOOD SPECIMENOrdering Facility: [facility] Address: [address] [place], [place] [address] Performed By: #### 1 9123-9, 2776-06, 1987-10, ####[facility] [id number] [address] [address] [place] Sodium [Moles/Vol] 137 mmol/L Normal 136-144 [facility] Comment on above: Order Comment: Speci men Type: BLOOD SPECIMENOrdering Facility: [facility] Address: [address] [place], [place] [address] Performed By: #### 1 9123-9, 27712-25, 1987-10, ####[facility] [id number] [address] [address] [place] Urea nitrogen [Mass/Vol] 11 mg/dL Normal 7-21 [facility] Comment on above: Order Comment: Speci men Type: BLOOD SPECIMENOrdering Facility: [facility] Address: [address] [place] [address] Performed By: #### 1 9123-9, 27712-25, 1987-10, ####[facility] [id number] [place] [address] [place] Magnesium SerPl-mCncon 12-19 Magnesium [Mass/Vol] 1.9 mg/dL Normal 1.7-2.3 [facility] Comment on above: Order Comment: Speci men Type: BLOOD SPECIMENOrdering Facility: [facility] Address: [address] [place] [address] Performed By: #### 1 9123-9, 27712-25, 1987-10, ####[facility] [id number] [place] [address] [place] NURSING PROGon 12-19-2024 NURSING PROG Normal [facility] Phosphate [Mass/Vol] 4.2 mg/dL Normal 2.7-4.8 [facility] Comment on above: Order Comment: Speci men Type: BLOOD SPECIMENOrdering Facility: [facility] Address: [address] [place] [address] Performed By: #### 1 9123-9, 2776-06, 1987-10, ####[facility] [id number] [place] [address] [place] CBC W Auto Differential pane l (Bld)on 12-18-2024 Basophils (Bld) [#/Vol] 0.03 10*3/uL Normal <0.11 [facility] Comment on above: Order Comment: Speci men Type: BLOOD SPECIMENOrdering Facility: [facility] Address: [address] [place] [address] Performed By: #### 5 7021-8 ####[facility] [id number] [place] [address] [place] Basophils/100 WBC (Bld) 0.4 % Normal [facility] Comment on above: Order Comment: Speci men Type: BLOOD SPECIMENOrdering Facility: [facility] Address: [address] [place] [address] Performed By: #### 5 7021-8 ####[facility] [id number] [place] [address] [place] Differential cell count method Nom (Bld) Auto Normal [facility] Comment on above: Order Comment: Speci men Type: BLOOD SPECIMENOrdering Facility: [facility] Address: [address] [place] [address] Performed By: #### 5 7021-8 ####[facility] [id number] [place] [address] [place] Eosinophils (Bld) [#/Vol] 0.31 10*3/uL Normal <0.46 [facility] Comment on above: Order Comment: Speci men Type: BLOOD SPECIMENOrdering Facility: [facility] Address: [address] [place] [address] Performed By: #### 5 7021-8 ####[facility] [id number] [place] [address] [place] Eosinophils/100 WBC (Bld) 4.4 % Normal [facility] Comment on above: Order Comment: Speci men Type: BLOOD SPECIMENOrdering Facility: [facility] Address: [address] [place] [address] Performed By: #### 5 7021-8 ####[facility] [id number] [place] [address] [place] Erythrocyte distribution width (RBC) [Ratio] 21.3 % High 11.5-15.0 [facility] Comment on above: Order Comment: Speci men Type: BLOOD SPECIMENOrdering Facility: [facility] Address: [address] [place] [address] Performed By: #### 5 7021-8 ####[facility] [id number] [place] [address] [place] Hematocrit (Bld) [Volume fraction] 21.9 % Low 36.0-46.0 [facility] Comment on above: Order Comment: Speci men Type: BLOOD SPECIMENOrdering Facility: [facility] Address: [address] [place] [address] Performed By: #### 5 7021-8 ####[facility] [id number] [place] [address] [place] Hemoglobin (Bld) [Mass/Vol] 6.8 g/dL Low 11.5-15.5 [facility] Comment on above: Order Comment: Speci men Type: BLOOD SPECIMENOrdering Facility: [facility] Address: [address] [place] [address] Performed By: #### 5 7021-8 ####[facility] [id number] [place] [address] [place] Immature granulocytes (Bld) [#/Vol] 0.05 10*3/uL Normal <0.10 [facility] Comment on above: Order Comment: Speci men Type: BLOOD SPECIMENOrdering Facility: [facility] Address: [address] [place] [address] Performed By: #### 5 7021-8 ####[facility] [id number] [place] [address] [place] Immature granulocytes/100 WBC (Bld) 0.7 % Normal [facility] Comment on above: Order Comment: Speci men Type: BLOOD SPECIMENOrdering Facility: [facility] Address: [address] [place] [address] Performed By: #### 5 7021-8 ####[facility] [id number] [place] [address] [place] Lymphocytes (Bld) [#/Vol] 1.19 10*3/uL Normal 1.00-4.00 [facility] Comment on above: Order Comment: Speci men Type: BLOOD SPECIMENOrdering Facility: [facility] Address: [address] [place] [address] Performed By: #### 5 7021-8 ####[facility] [id number] [place] [address] [place] Lymphocytes/100 WBC (Bld) 17.0 % Normal [facility] Comment on above: Order Comment: Speci men Type: BLOOD SPECIMENOrdering Facility: [facility] Address: [address] [place] [address] Performed By: #### 5 7021-8 ####[facility] [id number] [place] [address] [place] MCH (RBC) [Entitic mass] 26.7 pg Normal 26.0-34.0 [facility] Comment on above: Order Comment: Speci men Type: BLOOD SPECIMENOrdering Facility: [facility] Address: [address] [place] [address] Performed By: #### 5 7021-8 ####[facility] [id number] [place] [address] [place] MCHC (RBC) [Mass/Vol] 31.1 g/dL Normal 30.5-36.0 [facility] Comment on above: Order Comment: Speci men Type: BLOOD SPECIMENOrdering Facility: [facility] Address: [address] [place] [address] Performed By: #### 5 7021-8 ####[facility] [id number] [place] [address] [place] MCV (RBC) [Entitic vol] 85.9 fL Normal 80.0-100.0 [facility] Comment on above: Order Comment: Speci men Type: BLOOD SPECIMENOrdering Facility: [facility] Address: [address] [place] [address] Performed By: #### 5 7021-8 ####[facility]CLIA [id number] [address], [place] [address] [place] Monocytes (Bld) [#/Vol] 0.48 10*3/uL Normal <0.87 [facility] Comment on above: Order Comment: Speci men Type: BLOOD SPECIMENOrdering Facility: [facility] Address: [address] [place] [address] Performed By: #### 5 7021-8 ####[facility] [id number] [place] [address] [place] Monocytes/100 WBC (Bld) 6.8 % Normal [facility] Comment on above: Order Comment: Speci men Type: BLOOD SPECIMENOrdering Facility: [facility] Address: [address] [place] [address] Performed By: #### 5 7021-8 ####[facility] [id number] [place] [address] [place] Neutrophils (Bld) [#/Vol] 4.96 10*3/uL Normal 1.45-7.50 [facility] Comment on above: Order Comment: Speci men Type: BLOOD SPECIMENOrdering Facility: [facility] Address: [address] [place] [address] Performed By: #### 5 7021-8 ####[facility] [id number] [place] [address] [place] Neutrophils/100 WBC (Bld) 70.7 % Normal [facility] Comment on above: Order Comment: Speci men Type: BLOOD SPECIMENOrdering Facility: [facility] Address: [address] [place] [address] Performed By: #### 5 7021-8 ####[facility] [id number] [place] [address] [place] Nucleated RBC (Bld) [#/Vol] 10*3/uL Normal <0.01 [facility] Comment on above: Order Comment: Speci men Type: BLOOD SPECIMENOrdering Facility: [facility] Address: [address] [place] [address] Performed By: #### 5 7021-8 ####[facility] [id number] [place] [address] [place] Nucleated RBC/100 WBC (Bld) [Ratio] 0.0 /100 WBC Normal [facility] Comment on above: Order Comment: Speci men Type: BLOOD SPECIMENOrdering Facility: [facility] Address: [address] [place] [address] Performed By: #### 5 7021-8 ####[facility] [id number] [place] [address] [place] Platelet mean volume (Bld) [Entitic vol] 9.7 fL Normal 9.0-12.7 [facility] Comment on above: Order Comment: Speci men Type: BLOOD SPECIMENOrdering Facility: [facility] Address: [address] [place] [address] Performed By: #### 5 7021-8 ####[facility] [id number] [place] [address] [place] Platelets (Bld) [#/Vol] 265 10*3/uL Normal 150-400 [facility] Comment on above: Order Comment: Speci men Type: BLOOD SPECIMENOrdering Facility: [facility] Address: [address] [place] [address] Performed By: #### 5 7021-8 ####[facility] [id number] [place] [address] [place] RBC (Bld) [#/Vol] 2.55 10*6/uL Low 3.90-5.20 [facility] Comment on above: Order Comment: Speci men Type: BLOOD SPECIMENOrdering Facility: [facility] Address: [address] [place] [address] Performed By: #### 5 7021-8 ####[facility] [id number] [place] [address] [place] WBC (Bld) [#/Vol] 7.02 10*3/uL Normal 3.70-11.00 [facility] Comment on above: Order Comment: Speci men Type: BLOOD SPECIMENOrdering Facility: [facility] Address: [address] [place] [address] Performed By: #### 5 7021-8 ####[facility] [id number] [place] [address] [place] CBC panel Auto (Bld)on 12-18 Erythrocyte distribution width (RBC) [Ratio] 20.3 % High 11.5-15.0 [facility] Comment on above: Order Comment: Speci men Type: BLOOD SPECIMENOrdering Facility: [facility] Address: [address] [place] [address] Performed By: #### 5 8410-2 ####[facility] [id number] [place] [address] [place] Hematocrit (Bld) [Volume fraction] 26.1 % Low 36.0-46.0 [facility] Comment on above: Order Comment: Speci men Type: BLOOD SPECIMENOrdering Facility: [facility] Address: [address] [place] [address] Performed By: #### 5 8410-2 ####[facility] [id number] [place] [id number] [place] Hemoglobin (Bld) [Mass/Vol] 7.9 g/dL Low 11.5-15.5 [facility] Comment on above: Order Comment: Speci men Type: BLOOD SPECIMENOrdering Facility: [facility] Address: [address] [place] [address] Performed By: #### 5 8410-2 ####[facility] [id number] [place] [address] [place] MCH (RBC) [Entitic mass] 27.0 pg Normal 26.0-34.0 [facility] Comment on above: Order Comment: Speci men Type: BLOOD SPECIMENOrdering Facility: [facility] Address: [address] [place] [address] Performed By: #### 5 8410-2 ####[facility] [id number] [place] [address] [place] MCHC (RBC) [Mass/Vol] 30.3 g/dL Low 30.5-36.0 [facility] Comment on above: Order Comment: Speci men Type: BLOOD SPECIMENOrdering Facility: [facility] Address: [address] [place] [address] Performed By: #### 5 8410-2 ####[facility] [id number] [place] [address] [place] MCV (RBC) [Entitic vol] 89.1 fL Normal 80.0-100.0 [facility] Comment on above: Order Comment: Speci men Type: BLOOD SPECIMENOrdering Facility: [facility] Address: [address] [place] [address] Performed By: #### 5 8410-2 ####[facility] [id number] [place] [address] [place] Nucleated RBC (Bld) [#/Vol] 10*3/uL Normal <0.01 [facility] Comment on above: Order Comment: Speci men Type: BLOOD SPECIMENOrdering Facility: [facility] Address: [address] [place] [address] Performed By: #### 5 8410-2 ####[facility] [id number] [place] [address] [place] Platelet mean volume (Bld) [Entitic vol] 9.8 fL Normal 9.0-12.7 [facility] Comment on above: Order Comment: Speci men Type: BLOOD SPECIMENOrdering Facility: [facility] Address: [address] [place] [address] Performed By: #### 5 8410-2 ####[facility] [id number] [place] [address] [place] Platelets (Bld) [#/Vol] 287 10*3/uL Normal 150-400 [facility] Comment on above: Order Comment: Speci men Type: BLOOD SPECIMENOrdering Facility: [facility] Address: [address] [place] [address] Performed By: #### 5 8410-2 ####[facility] [id number] [place] [address] [place] RBC (Bld) [#/Vol] 2.93 10*6/uL Low 3.90-5.20 [facility] Comment on above: Order Comment: Speci men Type: BLOOD SPECIMENOrdering Facility: [facility] Address: [address] [place] [address] Performed By: #### 5 8410-2 ####[facility] [id number] [place] [address] [place] WBC (Bld) [#/Vol] 8.64 10*3/uL Normal 3.70-11.00 [facility] Comment on above: Order Comment: Speci men Type: BLOOD SPECIMENOrdering Facility: [facility] Address: [address] [place] [address] Performed By: #### 5 8410-2 ####[facility] [id number] [place] [id number] [place] Erythrocyte distribution width (RBC) [Ratio] 21.2 % High 11.5-15.0 [facility] Comment on above: Order Comment: Speci men Type: BLOOD SPECIMENOrdering Facility: [facility] Address: [address] [place] [address] Performed By: #### 5 8410-2 ####[facility] [id number] [place] [address] [place] Hematocrit (Bld) [Volume fraction] 22.2 % Low 36.0-46.0 [facility] Comment on above: Order Comment: Speci men Type: BLOOD SPECIMENOrdering Facility: [facility] Address: [address] [place] [address] Performed By: #### 5 8410-2 ####[facility] [id number] [place] [address] [place] Hemoglobin (Bld) [Mass/Vol] 6.9 g/dL Low 11.5-15.5 [facility] Comment on above: Order Comment: Speci men Type: BLOOD SPECIMENOrdering Facility: [facility] Address: [address] [place] [address] Performed By: #### 5 8410-2 ####[facility] LABCLIA [id number] [place] [address] [place] MCH (RBC) [Entitic mass] 27.0 pg Normal 26.0-34.0 [facility] Comment on above: Order Comment: Speci men Type: BLOOD SPECIMENOrdering Facility: [facility] Address: [address] [place] [address] Performed By: #### 5 8410-2 ####[facility] LABCLIA [id number] [place] [id number] [place] MCHC (RBC) [Mass/Vol] 31.1 g/dL Normal 30.5-36.0 [facility] Comment on above: Order Comment: Speci men Type: BLOOD SPECIMENOrdering Facility: [facility] Address: [address] [place] [address] Performed By: #### 5 8410-2 ####[facility] LABCLIA [id number] [place] [address] [place] MCV (RBC) [Entitic vol] 86.7 fL Normal 80.0-100.0 [facility] Comment on above: Order Comment: Speci men Type: BLOOD SPECIMENOrdering Facility: [facility] Address: [address] [place] [address] Performed By: #### 5 8410-2 ####[facility] LABIA [id number] [place] [address] [place] Nucleated RBC (Bld) [#/Vol] 10*3/uL Normal <0.01 [facility] Comment on above: Order Comment: Speci men Type: BLOOD SPECIMENOrdering Facility: [facility] Address: [address] [place] [address] Performed By: #### 5 8410-2 ####[facility]IA [id number] [place] [address] [place] Platelet mean volume (Bld) [Entitic vol] 9.5 fL Normal 9.0-12.7 [facility] Comment on above: Order Comment: Speci men Type: BLOOD SPECIMENOrdering Facility: [facility] Address: [address] [place] [address] Performed By: #### 5 8410-2 ####[facility]IA [id number] [place] [address] [place] Platelets (Bld) [#/Vol] 284 10*3/uL Normal 150-400 [facility] Comment on above: Order Comment: Speci men Type: BLOOD SPECIMENOrdering Facility: [facility] Address: [address] [place] [address] Performed By: #### 5 8410-2 ####[facility] LABCLIA [id number] [place] [address] [place] RBC (Bld) [#/Vol] 2.56 10*6/uL Low 3.90-5.20 [facility] Comment on above: Order Comment: Speci men Type: BLOOD SPECIMENOrdering Facility: [facility] Address: [address] [place] [address] Performed By: #### 5 8410-2 ####[facility] LABCLIA [id number] [address] [address] [place] WBC (Bld) [#/Vol] 7.45 10*3/uL Normal 3.70-11.00 [facility] Comment on above: Order Comment: Speci men Type: BLOOD SPECIMENOrdering Facility: [facility] Address: [address] [place] [address] Performed By: #### 5 8410-2 ####[facility] LABCLIA [id number] [address] [address] [place] Comprehensive metabolic 2000 panelon 12-18-2024 Albumin [Mass/Vol] 2.3 g/dL Low 3.9-4.9 [facility] Comment on above: Order Comment: Speci men Type: BLOOD SPECIMENOrdering Facility: [facility] Address: [address] [place] [address] Performed By: #### 1 9123-9, 2777-1, 2571-8, 88719-6 ####[facility] [id number] [address] [address] [place] ALP [Catalytic activity/Vol] 71 U/L Normal 34-123 [facility] Comment on above: Order Comment: Speci men Type: BLOOD SPECIMENOrdering Facility: [facility] Address: [address] [place] [address] Performed By: #### 1 9123-9, 2777-1, 2571-8, 65313-2 ####[facility] LABCLIA [id number] [address] [place] [address] [place] ALT [Catalytic activity/Vol] 9 U/L Normal 7-38 [facility] Comment on above: Order Comment: Speci men Type: BLOOD SPECIMENOrdering Facility: [facility] Address: [address] [place] [address] Performed By: #### 1 9123-9, 2777-1, 8, 47705-0 ####[facility] LABCLIA [id number] [place] [address] [place] Anion gap [Moles/Vol] 10 mmol/L Normal 8-15 [facility] Comment on above: Order Comment: Speci men Type: BLOOD SPECIMENOrdering Facility: [facility] Address: [address] [place] [address] Performed By: #### 1 9123-9, 2777-1, 8, 57024-6 ####[facility] [id number] [place] [address] [place] AST [Catalytic activity/Vol] 9 U/L Low 13-35 [facility] Comment on above: Order Comment: Speci men Type: BLOOD SPECIMENOrdering Facility: [facility] Address: [address] [place] [address] Performed By: #### 1 9123-9, 2777-1, 8, 44835-6 ####[facility]IA [id number] [place] [address] [place] Bilirubin [Mass/Vol] 0.2 mg/dL Normal 0.2-1.3 [facility] Comment on above: Order Comment: Speci men Type: BLOOD SPECIMENOrdering Facility: [facility] Address: [address] [place], [place] [address] Performed By: #### 1 9123-9, 2777-1, 8, 92007-6 ####[facility] LABCLIA [id number] [address] [address] [place] Calcium [Mass/Vol] 8.0 mg/dL Low 8.5-10.2 [facility] Comment on above: Order Comment: Speci men Type: BLOOD SPECIMENOrdering Facility: [facility] Address: [address] [place], [place] [address] Performed By: #### 1 9123-9, 2777-1, 8, 22475-7 ####[facility] LABCLIA [id number] [address] [address] [place] Chloride [Moles/Vol] 106 mmol/L Normal 98-107 [facility] Comment on above: Order Comment: Speci men Type: BLOOD SPECIMENOrdering Facility: [facility] Address: [address] [place] [address] Performed By: #### 1 9123-9, 2777-1, 8, ####[facility] LABCLIA [id number] [place] [address] [place] CO2 [Moles/Vol] 22 mmol/L Normal 22-30 [facility] Comment on above: Order Comment: Speci men Type: BLOOD SPECIMENOrdering Facility: [facility] Address: [address] [place] [address] Performed By: #### 1 9123-9, 2777-, 8, 43303-0 ####[facility] LABCLIA [id number] [address] [address] [place] Creatinine [Mass/Vol] 0.53 mg/dL Low 0.58-0.96 [facility] Comment on above: Order Comment: Speci men Type: BLOOD SPECIMENOrdering Facility: [facility] Address: [address] [place] [address] Performed By: #### 1 9123-9, 2777-, 8, ####[facility] LABCLIA [id number] [address] [address] [place] Creatinine and Glomerular filtration rate.predicted panel (S/P/Bld) 119 mL/min/1.73m??? Normal >=60 [facility] Comment on above: Order Comment: Dora finch Type: BLOOD SPECIMENOrdering Facility: [facility] Address: [address] [place] [address] Result Comment: Zeny mated Glomerular Filtration Rate [...] actual GFR. Performed By: #### 1 9123-9, 2777-1, 2570-8, ####[facility] [id number] [place] [address] [place] Glucose [Mass/Vol] 115 mg/dL High 74-99 [facility] Comment on above: Order Comment: Dora finch Type: BLOOD SPECIMENOrdering Facility: [facility] Address: [address] [place] [address] Result Comment: The [place] Diabetes Association (ADA) provides guidance for cutoff [...] Standards of Medical Care in Diabetes 2016, [place] [employer]. Diabetes Care. 2016.39(Suppl 1). Performed By: #### 1 9123-9, 2777-, 8, ####[facility]IA [id number] [address] [address] [place] Potassium [Moles/Vol] 3.3 mmol/L Low 3.7-5.1 [facility] Comment on above: Order Comment: Speci men Type: BLOOD SPECIMENOrdering Facility: [facility] Address: [address] [place] [address] Performed By: #### 1 9123-9, 2777-1, 8, 35231-9 ####[facility] LABCLIA [id number] [address] [address] [place] Protein [Mass/Vol] 5.1 g/dL Low 6.3-8.0 [facility] Comment on above: Order Comment: Speci men Type: BLOOD SPECIMENOrdering Facility: [facility] Address: [address] [place] [address] Performed By: #### 1 9123-9, 2777-, 8, 01719-5 ####[facility]IA [id number] [place] [address] [place] Sodium [Moles/Vol] 138 mmol/L Normal 136-144 [facility] Comment on above: Order Comment: Speci men Type: BLOOD SPECIMENOrdering Facility: [facility] Address: [address] [place] [address] Performed By: #### 1 9123-9, 2777-, 2571-01, 54712-2 ####[facility]IA [id number] [place] [address] [place] Urea nitrogen [Mass/Vol] 8 mg/dL Normal 7-21 [facility] Comment on above: Order Comment: Speci men Type: BLOOD SPECIMENOrdering Facility: [facility] Address: [address] [place] [address] Performed By: #### 1 9123-9, 2777-, 8, 96643-4 ####[facility]IA [id number] [address] [place] [address] [place] Magnesium SerPl-mCncon 12-18 Magnesium [Mass/Vol] 1.8 mg/dL Normal 1.7-2.3 [facility] Comment on above: Order Comment: Speci men Type: BLOOD SPECIMENOrdering Facility: [facility] Address: [address] [place] [address] Performed By: #### 1 9123-9, 2777-1, 2571-8, 34329-2 ####[facility] LABCLIA [id number] [place] [address] [place] Phosphate SerPl-mCncon 12-18 Phosphate [Mass/Vol] 3.8 mg/dL Normal 2.7-4.8 [facility] Comment on above: Order Comment: Speci men Type: BLOOD SPECIMENOrdering Facility: [facility] Address: [address] [place] [address] Performed By: #### 1 9123-9, 2777-1, 2571-8, 12622-4 ####[facility] LABCLIA [id number] [place] [address] [place] TYPE + SCREENon 12-18-2024 ABO O Normal [facility] Comment on above: Order Comment: Speci men Type: BLOOD SPECIMENOrdering Facility: [facility] Address: [address] [place] [address] Performed By: #### T SCR ####[facility] BLOOD BANKCLIA [id number] [place] [address] [place] Rh Nom (Bld) Positive Normal [facility] Comment on above: Order Comment: Speci men Type: BLOOD SPECIMENOrdering Facility: [facility] Address: [address] [place] [address] Performed By: #### T SCR ####[facility] BLOOD BANKCLIA [id number] [place] [address] [place] TYPE AND SCREEN EXPIRATION 12/21/2024 23:59 Normal [facility] Comment on above: Order Comment: Speci men Type: BLOOD SPECIMENOrdering Facility: [facility] Address: [address] [place] [address] Performed By: #### T SCR ####[facility] BANKIA [id number] [place] [address] [place] Trigl SerPl-mCncon Triglyceride [Mass/Vol] 81 mg/dL Normal <150 [facility] Comment on above: Order Comment: Speci men Type: BLOOD SPECIMENOrdering Facility: [facility] Address: [address] [place] [address] Result Comment: <150 mg/dL, Normal 150-199 mg/dL, Borderline high 200-499 mg/dL, High>499 mg/dL, Very highReference:1. National Cholesterol Education Program ATP III Guideline At-A-Glance Quick Desk Reference: National Heart, Lung, and Blood [place]. National Institutes of Health. 2001: NIH Publication No. 01-3305. Performed By: #### 1 9123-9, 2777-1, 2571-8, 01354-0 ####[facility] LABCLIA [id number] [place] [address] [place] Triglyceride [Mass/Vol]on FASTING TIME 12 hrs Normal [facility] Comment on above: Order Comment: Speci men Type: BLOOD SPECIMENOrdering Facility: [facility] Address: [address] [place] [address] Performed By: #### 1 9123-9, 2777-1, 2571-8, 43429-6 ####[facility] LABCLIA [id number] [place] [address] [place] Basic metabolic 2000 panelon 12-17-2024 Anion gap [Moles/Vol] 9 mmol/L Normal 8-15 [facility] Comment on above: Order Comment: Speci men Type: BLOOD SPECIMENOrdering Facility: [facility] Address: [address] [place] [address] Performed By: #### 2 4321-2 ####[facility] LABCLIA [id number] [place] [address] [place] Calcium [Mass/Vol] 8.0 mg/dL Low 8.5-10.2 [facility] Comment on above: Order Comment: Speci men Type: BLOOD SPECIMENOrdering Facility: [facility] Address: [address] [place] [address] Performed By: #### 2 4321-2 ####[facility] LABCLIA [id number] [place] [address] [place] Chloride [Moles/Vol] 104 mmol/L Normal 98-107 [facility] Comment on above: Order Comment: Speci men Type: BLOOD SPECIMENOrdering Facility: [facility] Address: [address] [place] [address] Performed By: #### 2 4321-2 ####[facility] LABCLIA [id number] [place] [address] [place] CO2 [Moles/Vol] 23 mmol/L Normal 22-30 [facility] Comment on above: Order Comment: Speci men Type: BLOOD SPECIMENOrdering Facility: [facility] Address: [address] [place] [address] Performed By: #### 2 4321-2 ####[facility] LABIA [id number] [place] [address] [place] Creatinine [Mass/Vol] 0.54 mg/dL Low 0.58-0.96 [facility] Comment on above: Order Comment: Speci men Type: BLOOD SPECIMENOrdering Facility: [facility] Address: [address] [place], [place] [address] Performed By: #### 2 4321-2 ####[facility] LABCLIA [id number] [place] [address] [place] Creatinine and Glomerular filtration rate.predicted panel (S/P/Bld) 119 mL/min/1.73m??? Normal >=60 [facility] Comment on above: Order Comment: Dora finch Type: BLOOD SPECIMENOrdering Facility: [facility] Address: [address] [place] [address] Result Comment: Zeny mated Glomerular Filtration Rate [...] actual GFR. Performed By: #### 2 4321-2 ####[facility] LABIA [id number] [place] [address] [place] Glucose [Mass/Vol] 152 mg/dL High 74-99 [facility] Comment on above: Order Comment: Dora finch Type: BLOOD SPECIMENOrdering Facility: [facility] Address: [address] [place] [address] Result Comment: The [place] Diabetes Association (ADA) provides guidance for cutoff [...] Standards of Medical Care in Diabetes 2016, [place] Diabetes [employer]. Diabetes Care. 2016.39(Suppl 1). Performed By: #### 2 4321-2 ####[facility] LABIA [id number] [place] [address] [place] Potassium [Moles/Vol] 3.7 mmol/L Normal 3.7-5.1 [facility] Comment on above: Order Comment: Dora finch Type: BLOOD SPECIMENOrdering Facility: [facility] Address: [address] [place] [address] Performed By: #### 2 4321-2 ####[facility] LABCLIA [id number] [place] [address] [place] Sodium [Moles/Vol] 136 mmol/L Normal 136-144 [facility] Comment on above: Order Comment: Speci men Type: BLOOD SPECIMENOrdering Facility: [facility] Address: [address] [place] [address] Performed By: #### 2 4321-2 ####[facility] LABCLIA [id number] [place] [address] [place] Urea nitrogen [Mass/Vol] 12 mg/dL Normal 7-21 [facility] Comment on above: Order Comment: Speci men Type: BLOOD SPECIMENOrdering Facility: [facility] Address: [address] [place] [address] Performed By: #### 2 4321-2 ####[facility]IA [id number] [place] [address] [place] CASE MANAGEMon 12-17-2024 CASE MANAGEM Normal [facility] CBC W Auto Differential pane l (Bld)on 12-17-2024 Basophils (Bld) [#/Vol] 10*3/uL Normal <0.11 [facility] Comment on above: Order Comment: Speci men Type: BLOOD SPECIMENOrdering Facility: [facility] Address: [address] [place] [address] Performed By: #### 5 7021-8 ####[facility] LABCLIA [id number] [place] [address] [place] Basophils/100 WBC (Bld) 0.2 % Normal [facility] Comment on above: Order Comment: Speci men Type: BLOOD SPECIMENOrdering Facility: [facility] Address: [address] [place] [address] Performed By: #### 5 7021-8 ####[facility] LABCLIA [id number] [place] [address] [place] Differential cell count method Nom (Bld) Auto Normal [facility] Comment on above: Order Comment: Speci men Type: BLOOD SPECIMENOrdering Facility: [facility] Address: [address] [place] [address] Performed By: #### 5 7021-8 ####[facility] LABCLIA [id number] [place] [address] [place] Eosinophils (Bld) [#/Vol] 0.29 10*3/uL Normal <0.46 [facility] Comment on above: Order Comment: Speci men Type: BLOOD SPECIMENOrdering Facility: [facility] Address: [address] [place] [address] Performed By: #### 5 7021-8 ####[facility] LABCLIA [id number] [place] [address] [place] Eosinophils/100 WBC (Bld) 3.3 % Normal [facility] Comment on above: Order Comment: Speci men Type: BLOOD SPECIMENOrdering Facility: [facility] Address: [address] [place] [address] Performed By: #### 5 7021-8 ####[facility] LABCLIA [id number] [place] [address] [place] Erythrocyte distribution width (RBC) [Ratio] 21.2 % High 11.5-15.0 [facility] Comment on above: Order Comment: Speci men Type: BLOOD SPECIMENOrdering Facility: [facility] Address: [address] [place] [address] Performed By: #### 5 7021-8 ####[facility] LABCLIA [id number] [place] [address] [place] Hematocrit (Bld) [Volume fraction] 24.6 % Low 36.0-46.0 [facility] Comment on above: Order Comment: Speci men Type: BLOOD SPECIMENOrdering Facility: [facility] Address: [address] [place] [address] Performed By: #### 5 7021-8 ####[facility] LABCLIA [id number] [place] [address] [place] Hemoglobin (Bld) [Mass/Vol] 7.6 g/dL Low 11.5-15.5 [facility] Comment on above: Order Comment: Speci men Type: BLOOD SPECIMENOrdering Facility: [facility] Address: [address] [place] [address] Performed By: #### 5 7021-8 ####[facility]IA [id number] [place] [address] [place] Immature granulocytes (Bld) [#/Vol] 0.04 10*3/uL Normal <0.10 [facility] Comment on above: Order Comment: Speci men Type: BLOOD SPECIMENOrdering Facility: [facility] Address: [address] [place] [address] Performed By: #### 5 7021-8 ####[facility]IA [id number] [place] [address] [place] Immature granulocytes/100 WBC (Bld) 0.5 % Normal [facility] Comment on above: Order Comment: Speci men Type: BLOOD SPECIMENOrdering Facility: [facility] Address: [address] [place] [address] Performed By: #### 5 7021-8 ####[facility] LABCLIA [id number] [place] [address] [place] Lymphocytes (Bld) [#/Vol] 1.04 10*3/uL Normal 1.00-4.00 [facility] Comment on above: Order Comment: Speci men Type: BLOOD SPECIMENOrdering Facility: [facility] Address: [address] [place] [address] Performed By: #### 5 7021-8 ####[facility] LABCLIA [id number] [place] [address] [place] Lymphocytes/100 WBC (Bld) 11.7 % Normal [facility] Comment on above: Order Comment: Speci men Type: BLOOD SPECIMENOrdering Facility: [facility] Address: [address] [place] [address] Performed By: #### 5 7021-8 ####[facility] LABCLIA [id number] [place] [address] [place] MCH (RBC) [Entitic mass] 26.5 pg Normal 26.0-34.0 [facility] Comment on above: Order Comment: Speci men Type: BLOOD SPECIMENOrdering Facility: [facility] Address: [address] [place] [address] Performed By: #### 5 7021-8 ####[facility] LABIA [id number] [address] [place] MCHC (RBC) [Mass/Vol] 30.9 g/dL Normal 30.5-36.0 [facility] Comment on above: Order Comment: Speci men Type: BLOOD SPECIMENOrdering Facility: [facility] Address: [address] [place] [address] Performed By: #### 5 7021-8 ####[facility] LABIA [id number] [place] [address] [place] MCV (RBC) [Entitic vol] 85.7 fL Normal 80.0-100.0 [facility] Comment on above: Order Comment: Speci men Type: BLOOD SPECIMENOrdering Facility: [facility] Address: [address] [place] [address] Performed By: #### 5 7021-8 ####[facility] LABCLIA [id number] [place] [address] [place] Monocytes (Bld) [#/Vol] 0.61 10*3/uL Normal <0.87 [facility] Comment on above: Order Comment: Speci men Type: BLOOD SPECIMENOrdering Facility: [facility] Address: [address] [place] [address] Performed By: #### 5 7021-8 ####[facility] LABCLIA [id number] [address] [address] [place] Monocytes/100 WBC (Bld) 6.9 % Normal [facility] Comment on above: Order Comment: Speci men Type: BLOOD SPECIMENOrdering Facility: [facility] Address: [address] [place] [address] Performed By: #### 5 7021-8 ####[facility] LABCLIA [id number] [place] [id number] [place] Neutrophils (Bld) [#/Vol] 6.88 10*3/uL Normal 1.45-7.50 [facility] Comment on above: Order Comment: Speci men Type: BLOOD SPECIMENOrdering Facility: [facility] Address: [address] [place] [address] Performed By: #### 5 7021-8 ####[facility] LABCLIA [id number] [place] [id number] [place] Neutrophils/100 WBC (Bld) 77.4 % Normal [facility] Comment on above: Order Comment: Speci men Type: BLOOD SPECIMENOrdering Facility: [facility] Address: [address] [place] [address] Performed By: #### 5 7021-8 ####[facility] LABCLIA [id number] [address] [address] [place] Nucleated RBC (Bld) [#/Vol] 10*3/uL Normal <0.01 [facility] Comment on above: Order Comment: Speci men Type: BLOOD SPECIMENOrdering Facility: [facility] Address: [address] [place] [address] Performed By: #### 5 7021-8 ####[facility] LABCLIA [id number] [place] [address] [place] Nucleated RBC/100 WBC (Bld) [Ratio] 0.0 /100 WBC Normal [facility] Comment on above: Order Comment: Speci men Type: BLOOD SPECIMENOrdering Facility: [facility] Address: [address] [place] [address] Performed By: #### 5 7021-8 ####[facility] LABIA [id number] [address], [place] [address] [place] Platelet mean volume (Bld) [Entitic vol] 9.5 fL Normal 9.0-12.7 [facility] Comment on above: Order Comment: Speci men Type: BLOOD SPECIMENOrdering Facility: [facility] Address: [address] [place] [address] Performed By: #### 5 7021-8 ####[facility] LABIA [id number] [place] [address] [place] Platelets (Bld) [#/Vol] 245 10*3/uL Normal 150-400 [facility] Comment on above: Order Comment: Speci men Type: BLOOD SPECIMENOrdering Facility: [facility] Address: [address] [place] [address] Performed By: #### 5 7021-8 ####[facility] LABIA [id number] [place] [address] [place] RBC (Bld) [#/Vol] 2.87 10*6/uL Low 3.90-5.20 [facility] Comment on above: Order Comment: Speci men Type: BLOOD SPECIMENOrdering Facility: [facility] Address: [address] [place] [address] Performed By: #### 5 7021-8 ####[facility] LABCLIA [id number] [address], [facility]95 [place] WBC (Bld) [#/Vol] 8.88 10*3/uL Normal 3.70-11.00 [facility] Comment on above: Order Comment: Speci men Type: BLOOD SPECIMENOrdering Facility: [facility] Address: [address] [place] [address] Performed By: #### 5 7021-8 ####[facility] LABCLIA [id number] [address] [place] [address] [place] CONSULT PROGon 12-17-2024 CONSULT PROG Normal [facility] CONSULT PROG Normal [facility] CRP SerPl-mCncon 12-17-2024 CRP [Mass/Vol] 10.3 mg/dL High <0.9 [facility] Comment on above: Order Comment: Speci men Type: BLOOD SPECIMENOrdering Facility: [facility] Address: [address] [place] [address] Performed By: #### 1 988-5 ####[facility] LABCLIA [id number] [address], [facility]95 [place] Comprehensive metabolic 2000 panelon 12-17-2024 Albumin [Mass/Vol] 2.6 g/dL Low 3.9-4.9 [facility] Comment on above: Order Comment: Speci men Type: BLOOD SPECIMENOrdering Facility: [facility] Address: [address] [place] [address] Performed By: #### 2 4323-8, , 2776-06 ####[facility] LABCLIA [id number] [address], [facility]95 [place] ALP [Catalytic activity/Vol] 80 U/L Normal 34-123 [facility] Comment on above: Order Comment: Speci men Type: BLOOD SPECIMENOrdering Facility: [facility] Address: [address] [place] [address] Performed By: #### 2 4323-8, , 2776- ####[facility] LABCLIA [id number] [address], [facility]95 [place] ALT [Catalytic activity/Vol] 14 U/L Normal 7-38 [facility] Comment on above: Order Comment: Speci men Type: BLOOD SPECIMENOrdering Facility: [facility] Address: [address] [place] [address] Performed By: #### 2 4323-8, , 2776-06 ####[facility] LABCLIA [id number] [facility] [address] [address] [place] Anion gap [Moles/Vol] 12 mmol/L Normal 8-15 [facility] Comment on above: Order Comment: Speci men Type: BLOOD SPECIMENOrdering Facility: [facility] Address: [address] [place] [address] Performed By: #### 2 4323-8, , 2776-06 ####[facility] LABCLIA [id number] [place] [address] [place] AST [Catalytic activity/Vol] 7 U/L Low 13-35 [facility] Comment on above: Order Comment: Speci men Type: BLOOD SPECIMENOrdering Facility: [facility] Address: [address] [place] [address] Performed By: #### 2 4323-8, , 2776-06 ####[facility] LABCLIA [id number] [facility] [address] [address] [place] Bilirubin [Mass/Vol] 0.3 mg/dL Normal 0.2-1.3 [facility] Comment on above: Order Comment: Speci men Type: BLOOD SPECIMENOrdering Facility: [facility] Address: [address] [place], [place] [address] Performed By: #### 2 4323-8, , 2776-06 ####[facility] LABCLIA [id number] [facility] [address] [address] [place] Calcium [Mass/Vol] 8.5 mg/dL Normal 8.5-10.2 [facility] Comment on above: Order Comment: Speci men Type: BLOOD SPECIMENOrdering Facility: [facility] Address: [address] [place] [address] Performed By: #### 2 4323-8, , 2776-06 ####[facility] LABCLIA [id number] [address] [address] [place] Chloride [Moles/Vol] 102 mmol/L Normal 98-107 [facility] Comment on above: Order Comment: Speci men Type: BLOOD SPECIMENOrdering Facility: [facility] Address: [address] [place] [address] Performed By: #### 2 4323-8, , 2776-06 ####[facility] LABCLIA [id number] [place] [address] [place] CO2 [Moles/Vol] 23 mmol/L Normal 22-30 [facility] Comment on above: Order Comment: Speci men Type: BLOOD SPECIMENOrdering Facility: [facility] Address: [address] [place], [place] [address] Performed By: #### 2 4323-8, , 2776-06 ####[facility] LABCLIA [id number] [place] [address] [place] Creatinine [Mass/Vol] 0.58 mg/dL Normal 0.58-0.96 [facility] Comment on above: Order Comment: Speci men Type: BLOOD SPECIMENOrdering Facility: [facility] Address: [address] [place], [place] [address] Performed By: #### 2 4323-8, , 2776-06 ####[facility] LABCLIA [id number] [place] [address] [place] Creatinine and Glomerular filtration rate.predicted panel (S/P/Bld) 117 mL/min/1.73m??? Normal >=60 [facility] Comment on above: Order Comment: Speci men Type: BLOOD SPECIMENOrdering Facility: [facility] Address: [address] [id number] Result Comment: Zeny mated Glomerular Filtration Rate [...] Performed By: #### 2 4323-8, , 2776-06 ####[facility] LABIA [id number] [place] [address] [place] Glucose [Mass/Vol] 131 mg/dL High 74-99 [facility] Comment on above: Order Comment: Dora finch Type: BLOOD SPECIMENOrdering Facility: [facility] Address: [address] [place] [address] Result Comment: The [place] Diabetes Association (ADA) provides guidance for cutoff [...] Standards of Medical Care in Diabetes 2016, [place] [employer]. Diabetes Care. 2016.39(Suppl 1). Performed By: #### 2 4323-8, , 2776-06 ####[facility] LABIA [id number] [place] [address] [place] Potassium [Moles/Vol] 2.9 mmol/L Low 3.7-5.1 [facility] Comment on above: Order Comment: Dora finch Type: BLOOD SPECIMENOrdering Facility: [facility] Address: [address] [place] [address] Performed By: #### 2 4323-8, 39998-2, 2776-1 ####[facility] LABIA [id number] [address] [address] [place] Protein [Mass/Vol] 5.5 g/dL Low 6.3-8.0 [facility] Comment on above: Order Comment: Speci men Type: BLOOD SPECIMENOrdering Facility: [facility] Address: [address] [place] [address] Performed By: #### 2 4323-8, 41738-2, 2776-06 ####[facility] LABIA [id number] [place] [address] [place] Sodium [Moles/Vol] 137 mmol/L Normal 136-144 [facility] Comment on above: Order Comment: Speci men Type: BLOOD SPECIMENOrdering Facility: [facility] Address: [address] [place] [address] Performed By: #### 2 4323-8, 81245-7, 2776-06 ####[facility] LABIA [id number] [place] [address] [place] Urea nitrogen [Mass/Vol] 11 mg/dL Normal 7-21 [facility] Comment on above: Order Comment: Speci men Type: BLOOD SPECIMENOrdering Facility: [facility] Address: [address] [place] [address] Performed By: #### 2 4323-8, 40765-8, 2776-06 ####[facility] [id number] [address] [address] [place] Magnesium SerPl-mCncon 12-17 Magnesium [Mass/Vol] 1.8 mg/dL Normal 1.7-2.3 [facility] Comment on above: Order Comment: Speci men Type: BLOOD SPECIMENOrdering Facility: [facility] Address: [address] [place] [address] Performed By: #### 2 4323-8, 06816-5, 2777-1 ####[facility] LABCLIA [id number] [place] [address] [place] Phosphate SerPl-mCncon 12-17 Phosphate [Mass/Vol] 3.1 mg/dL Normal 2.7-4.8 [facility] Comment on above: Order Comment: Speci men Type: BLOOD SPECIMENOrdering Facility: [facility] Address: [address] [place] [address] Performed By: #### 2 4323-8, 14466-0, 2777-1 ####[facility] LABCLIA [id number] [place] [address] [place] CBC W Auto Differential pane l (Bld)on 12-16-2024 Basophils (Bld) [#/Vol] 10*3/uL Normal <0.11 [facility] Comment on above: Order Comment: Speci men Type: BLOOD SPECIMENOrdering Facility: [facility] Address: [address] [place] [address] Performed By: #### 5 7021-8 ####[facility] LABCLIA [id number] [place] [address] [place] Basophils/100 WBC (Bld) 0.2 % Normal [facility] Comment on above: Order Comment: Speci men Type: BLOOD SPECIMENOrdering Facility: [facility] Address: [address] [place] [address] Performed By: #### 5 7021-8 ####[facility] LABCLIA [id number] [place] [address] [place] Differential cell count method Nom (Bld) Auto Normal [facility] Comment on above: Order Comment: Speci men Type: BLOOD SPECIMENOrdering Facility: [facility] Address: [address] [place] [address] Performed By: #### 5 7021-8 ####[facility] LABCLIA [id number] [address], [place] [address] [place] Eosinophils (Bld) [#/Vol] 0.32 10*3/uL Normal <0.46 [facility] Comment on above: Order Comment: Speci men Type: BLOOD SPECIMENOrdering Facility: [facility] Address: [address] [place] [address] Performed By: #### 5 7021-8 ####[facility] LABCLIA [id number] [address], [place] [address] [place] Eosinophils/100 WBC (Bld) 3.7 % Normal [facility] Comment on above: Order Comment: Speci men Type: BLOOD SPECIMENOrdering Facility: [facility] Address: [address] [place] [address] Performed By: #### 5 7021-8 ####[facility] LABIA [id number] [address], [place] [address] [place] Erythrocyte distribution width (RBC) [Ratio] 21.1 % High 11.5-15.0 [facility] Comment on above: Order Comment: Speci men Type: BLOOD SPECIMENOrdering Facility: [facility] Address: [address] [place] [address] Performed By: #### 5 7021-8 ####[facility] LABCLIA [id number] [place] [address] [place] Hematocrit (Bld) [Volume fraction] 24.0 % Low 36.0-46.0 [facility] Comment on above: Order Comment: Speci men Type: BLOOD SPECIMENOrdering Facility: [facility] Address: [address] [place] [address] Performed By: #### 5 7021-8 ####[facility] LABCLIA [id number] [address], [facility]95 [place] Hemoglobin (Bld) [Mass/Vol] 7.4 g/dL Low 11.5-15.5 [facility] Comment on above: Order Comment: Speci men Type: BLOOD SPECIMENOrdering Facility: [facility] Address: [address] [place] [address] Performed By: #### 5 7021-8 ####[facility] LABCLIA [id number] [place] [address] [place] Immature granulocytes (Bld) [#/Vol] 0.04 10*3/uL Normal <0.10 [facility] Comment on above: Order Comment: Speci men Type: BLOOD SPECIMENOrdering Facility: [facility] Address: [address] [place] [address] Performed By: #### 5 7021-8 ####[facility] LABCLIA [id number] [place] [address] [place] Immature granulocytes/100 WBC (Bld) 0.5 % Normal [facility] Comment on above: Order Comment: Speci men Type: BLOOD SPECIMENOrdering Facility: [facility] Address: [address] [place] [address] Performed By: #### 5 7021-8 ####[facility] LABCLIA [id number] [place] [address] [place] Lymphocytes (Bld) [#/Vol] 1.03 10*3/uL Normal 1.00-4.00 [facility] Comment on above: Order Comment: Speci men Type: BLOOD SPECIMENOrdering Facility: [facility] Address: [address] [place] [address] Performed By: #### 5 7021-8 ####[facility] LABCLIA [id number] [place] [address] [place] Lymphocytes/100 WBC (Bld) 11.9 % Normal [facility] Comment on above: Order Comment: Speci men Type: BLOOD SPECIMENOrdering Facility: [facility] Address: [address] [place] [address] Performed By: #### 5 7021-8 ####[facility] LABIA [id number] [place] [address] [place] MCH (RBC) [Entitic mass] 26.9 pg Normal 26.0-34.0 [facility] Comment on above: Order Comment: Speci men Type: BLOOD SPECIMENOrdering Facility: [facility] Address: [address] [place] [address] Performed By: #### 5 7021-8 ####[facility] LABIA [id number] [place] [address] [place] MCHC (RBC) [Mass/Vol] 30.8 g/dL Normal 30.5-36.0 [facility] Comment on above: Order Comment: Speci men Type: BLOOD SPECIMENOrdering Facility: [facility] Address: [address] [place] [address] Performed By: #### 5 7021-8 ####[facility] [id number] [place] [address] [place] MCV (RBC) [Entitic vol] 87.3 fL Normal 80.0-100.0 [facility] Comment on above: Order Comment: Speci men Type: BLOOD SPECIMENOrdering Facility: [facility] Address: [address] [place] [address] Performed By: #### 5 7021-8 ####[facility] [id number] [place] [address] [place] Monocytes (Bld) [#/Vol] 0.59 10*3/uL Normal <0.87 [facility] Comment on above: Order Comment: Speci men Type: BLOOD SPECIMENOrdering Facility: [facility] Address: [address] [place] [address] Performed By: #### 5 7021-8 ####[facility] [id number] [address] [place] Monocytes/100 WBC (Bld) 6.8 % Normal [facility] Comment on above: Order Comment: Speci men Type: BLOOD SPECIMENOrdering Facility: [facility] Address: [address] [place] [address] Performed By: #### 5 7021-8 ####[facility] LABCLIA [id number] [facility] [id number] [place] [address] [place] Neutrophils (Bld) [#/Vol] 6.65 10*3/uL Normal 1.45-7.50 [facility] Comment on above: Order Comment: Speci men Type: BLOOD SPECIMENOrdering Facility: [facility] Address: [address] [place] [address] Performed By: #### 5 7021-8 ####[facility] LABCLIA [id number] [place] [address] [place] Neutrophils/100 WBC (Bld) 76.9 % Normal [facility] Comment on above: Order Comment: Speci men Type: BLOOD SPECIMENOrdering Facility: [facility] Address: [address] [place] [address] Performed By: #### 5 7021-8 ####[facility] LABCLIA [id number] [place] [address] [place] Nucleated RBC (Bld) [#/Vol] 10*3/uL Normal <0.01 [facility] Comment on above: Order Comment: Speci men Type: BLOOD SPECIMENOrdering Facility: [facility] Address: [address] [place] [address] Performed By: #### 5 7021-8 ####[facility] LABCLIA [id number] [place] [address] [place] Nucleated RBC/100 WBC (Bld) [Ratio] 0.0 /100 WBC Normal [facility] Comment on above: Order Comment: Speci men Type: BLOOD SPECIMENOrdering Facility: [facility] Address: [address] [place] [address] Performed By: #### 5 7021-8 ####[facility] LABCLIA [id number] [facility] [address] [place] [address] [place] Platelet mean volume (Bld) [Entitic vol] 10.0 fL Normal 9.0-12.7 [facility] Comment on above: Order Comment: Speci men Type: BLOOD SPECIMENOrdering Facility: [facility] Address: [address] [place] [address] Performed By: #### 5 7021-8 ####[facility] LABCLIA [id number] [facility] [address] [place] [address] [place] Platelets (Bld) [#/Vol] 225 10*3/uL Normal 150-400 [facility] Comment on above: Order Comment: Speci men Type: BLOOD SPECIMENOrdering Facility: [facility] Address: [address] [place] [address] Performed By: #### 5 7021-8 ####[facility] LABIA [id number] [address] [place] [address] [place] RBC (Bld) [#/Vol] 2.75 10*6/uL Low 3.90-5.20 [facility] Comment on above: Order Comment: Speci men Type: BLOOD SPECIMENOrdering Facility: [facility] Address: [address] [place] [address] Performed By: #### 5 7021-8 ####[facility] LABCLIA [id number] [facility] [address] [place] [address] [place] WBC (Bld) [#/Vol] 8.65 10*3/uL Normal 3.70-11.00 [facility] Comment on above: Order Comment: Speci men Type: BLOOD SPECIMENOrdering Facility: [facility] Address: [address] [place] [address] Performed By: #### 5 7021-8 ####[facility] LABCLIA [id number] [address] [address] [place] Comprehensive metabolic 2000 panelon 12-16-2024 Albumin [Mass/Vol] 2.8 g/dL Low 3.9-4.9 [facility] Comment on above: Order Comment: Speci men Type: BLOOD SPECIMENOrdering Facility: [facility] Address: [address] [place] [address] Performed By: #### 2 777-1, 99539-7, ####[facility] LABCLIA [id number] [address] [address] [place] ALP [Catalytic activity/Vol] 84 U/L Normal 34-123 [facility] Comment on above: Order Comment: Speci men Type: BLOOD SPECIMENOrdering Facility: [facility] Address: [address] [place] [address] Performed By: #### 2 777-1, 51035-4, ####[facility] LABCLIA [id number] [address] [address] [place] ALT [Catalytic activity/Vol] 16 U/L Normal 7-38 [facility] Comment on above: Order Comment: Speci men Type: BLOOD SPECIMENOrdering Facility: [facility] Address: [address] [place] [address] Performed By: #### 2 777-1, 04643-0, ####[facility] LABCLIA [id number] [address] [address] [place] Anion gap [Moles/Vol] 12 mmol/L Normal 8-15 [facility] Comment on above: Order Comment: Speci men Type: BLOOD SPECIMENOrdering Facility: [facility] Address: [address] [place], [place] [address] Performed By: #### 2 777-1, 05699-9, ####[facility] LABCLIA [id number] [address] [place] [address] [place] AST [Catalytic activity/Vol] 11 U/L Low 13-35 [facility] Comment on above: Order Comment: Speci men Type: BLOOD SPECIMENOrdering Facility: [facility] Address: [address] [place], [place] [address] Performed By: #### 2 777-1, , ####[facility] LABCLIA [id number] [address] [address] [place] Bilirubin [Mass/Vol] 0.3 mg/dL Normal 0.2-1.3 [facility] Comment on above: Order Comment: Speci men Type: BLOOD SPECIMENOrdering Facility: [facility] Address: [address] [place] [address] Performed By: #### 2 777-1, , ####[facility] LABCLIA [id number] [place] [address] [place] Calcium [Mass/Vol] 8.6 mg/dL Normal 8.5-10.2 [facility] Comment on above: Order Comment: Speci men Type: BLOOD SPECIMENOrdering Facility: [facility] Address: [address] [place] [address] Performed By: #### 2 777-1, , ####[facility] LABCLIA [id number] [address] [address] [place] Chloride [Moles/Vol] 101 mmol/L Normal 98-107 [facility] Comment on above: Order Comment: Speci men Type: BLOOD SPECIMENOrdering Facility: [facility] Address: [address] [place] [address] Performed By: #### 2 777-1, , ####[facility] LABCLIA [id number] [address] [address] [place] CO2 [Moles/Vol] 23 mmol/L Normal 22-30 [facility] Comment on above: Order Comment: Speci men Type: BLOOD SPECIMENOrdering Facility: [facility] Address: [address] [place] [address] Performed By: #### 2 777-1, , ####[facility]CLIA [id number] [address] [address] [place] Creatinine [Mass/Vol] 0.64 mg/dL Normal 0.58-0.96 [facility] Comment on above: Order Comment: Speci men Type: BLOOD SPECIMENOrdering Facility: [facility] Address: [address] [place], [place] [id number] Performed By: #### 2 777-1, , ####[facility] LABIA [id number] [address] [address] [place] Creatinine and Glomerular filtration rate.predicted panel (S/P/Bld) 114 mL/min/1.73m??? Normal >=60 [facility] Comment on above: Order Comment: Speci men Type: BLOOD SPECIMENOrdering Facility: [facility] Address: [address] [place] [address] Result Comment: Zeny mated Glomerular Filtration Rate [...] GFR. Performed By: #### 2 777-1, , ####[facility]CLIA [id number] [address] [address] [place] Glucose [Mass/Vol] 140 mg/dL High 74-99 [facility] Comment on above: Order Comment: Speci men Type: BLOOD SPECIMENOrdering Facility: [facility] Address: [address] [id number] Result Comment: [employer] ([employer]) provides guidance for cutoff [...] Standards of Medical Care in Diabetes 2016, [place] [employer]. Diabetes Care. 2016.39(Suppl 1). Performed By: #### 2 777-1, , ####[facility] [id number] [place] [address] [place] Potassium [Moles/Vol] 2.8 mmol/L Low 3.7-5.1 [facility] Comment on above: Order Comment: Speci men Type: BLOOD SPECIMENOrdering Facility: [facility] Address: [address] [place] [address] Performed By: #### 2 777-1, , ####[facility] [id number] [place] [address] [place] Protein [Mass/Vol] 5.7 g/dL Low 6.3-8.0 [facility] Comment on above: Order Comment: Speci men Type: BLOOD SPECIMENOrdering Facility: [facility] Address: [address] [place] [address] Performed By: #### 2 777-1, , ####[facility] [id number] [address] [address] [place] Sodium [Moles/Vol] 136 mmol/L Normal 136-144 [facility] Comment on above: Order Comment: Speci men Type: BLOOD SPECIMENOrdering Facility: [facility] Address: [address] [place] [address] Performed By: #### 2 777-1, 38641-0, ####[facility] LABCLIA [id number] [place] [address] [place] Urea nitrogen [Mass/Vol] 11 mg/dL Normal 7-21 [facility] Comment on above: Order Comment: Speci men Type: BLOOD SPECIMENOrdering Facility: [facility] Address: [address] [place] [address] Performed By: #### 2 777-1, 94009-8, ####[facility] [id number] [place] [address] [place] Magnesium SerPl-mCncon 12-16 Magnesium [Mass/Vol] 1.9 mg/dL Normal 1.7-2.3 [facility] Comment on above: Order Comment: Speci men Type: BLOOD SPECIMENOrdering Facility: [facility] Address: [address] [place] [address] Performed By: #### 2 777-1, , ####[facility] [id number] [place] [address] [place] Phosphate SerPl-mCncon 12-16 Phosphate [Mass/Vol] 2.4 mg/dL Low 2.7-4.8 [facility] Comment on above: Order Comment: Speci men Type: BLOOD SPECIMENOrdering Facility: [facility] Address: [address] [place], [place] [address] Performed By: #### 2 777-1, 58507-5, ####[facility] [id number] [place] [address] [place] Vancomycin [place] SerPl-mCncon 12-16-2024 Vancomycin random [Mass/Vol] 11.6 ug/mL Normal 10.0-20.0 [facility] Comment on above: Order Comment: Speci men Type: BLOOD SPECIMENOrdering Facility: [facility] Address: [address] [place] [address] Result Comment: Refe rence ranges and high/low indicator flags are provided as general guidelines only. The treating physician must determine appropriate target levels/dosing based on the specific clinical situation. Performed By: #### 4 091-5 ####[facility] LABCLIA [id number] [place] [address] [place] CBC W Auto Differential pane l (Bld)on 12-15-2024 Basophils (Bld) [#/Vol] 0.03 10*3/uL Normal <0.11 [facility] Comment on above: Order Comment: Speci men Type: BLOOD SPECIMENOrdering Facility: [facility] Address: [address] [place] [address] Performed By: #### 5 7021-8 ####[facility] LABCLIA [id number] [place] [address] [place] Basophils/100 WBC (Bld) 0.3 % Normal [facility] Comment on above: Order Comment: Speci men Type: BLOOD SPECIMENOrdering Facility: [facility] Address: [address] [place] [address] Performed By: #### 5 7021-8 ####[facility]CL[facility] [id number] [place] [address] [place] Differential cell count method Nom (Bld) Auto Normal [facility] Comment on above: Order Comment: Speci men Type: BLOOD SPECIMENOrdering Facility: [facility] Address: [address] [place] [address] Performed By: #### 5 7021-8 ####[facility]CLIA [id number] [place] [address] [place] Eosinophils (Bld) [#/Vol] 0.38 10*3/uL Normal <0.46 [facility] Comment on above: Order Comment: Speci men Type: BLOOD SPECIMENOrdering Facility: [facility] Address: [address] [place] [address] Performed By: #### 5 7021-8 ####[facility]CLIA [id number] [address] [address] [place] Eosinophils/100 WBC (Bld) 3.4 % Normal [facility] Comment on above: Order Comment: Speci men Type: BLOOD SPECIMENOrdering Facility: [facility] Address: [address] [place] [address] Performed By: #### 5 7021-8 ####[facility]CLIA [id number] [place] [address] [place] Erythrocyte distribution width (RBC) [Ratio] 21.5 % High 11.5-15.0 [facility] Comment on above: Order Comment: Speci men Type: BLOOD SPECIMENOrdering Facility: [facility] Address: [address] [place] [address] Performed By: #### 5 7021-8 ####[facility] LABCLIA [id number] [place] [address] [place] Hematocrit (Bld) [Volume fraction] 25.3 % Low 36.0-46.0 [facility] Comment on above: Order Comment: Speci men Type: BLOOD SPECIMENOrdering Facility: [facility] Address: [address] [place] [address] Performed By: #### 5 7021-8 ####[facility]CLIA [id number] [address] [address] [place] Hemoglobin (Bld) [Mass/Vol] 7.6 g/dL Low 11.5-15.5 [facility] Comment on above: Order Comment: Speci men Type: BLOOD SPECIMENOrdering Facility: [facility] Address: [address] [place] [address] Performed By: #### 5 7021-8 ####[facility]CLIA [id number] [place] [address] [place] Immature granulocytes (Bld) [#/Vol] 0.08 10*3/uL Normal <0.10 [facility] Comment on above: Order Comment: Speci men Type: BLOOD SPECIMENOrdering Facility: [facility] Address: [address] [place] [address] Performed By: #### 5 7021-8 ####[facility]CLIA [id number] [place] [address] [place] Immature granulocytes/100 WBC (Bld) 0.7 % Normal [facility] Comment on above: Order Comment: Speci men Type: BLOOD SPECIMENOrdering Facility: [facility] Address: [address] [place] [address] Performed By: #### 5 7021-8 ####[facility]CLIA [id number] [place] [address] [place] Lymphocytes (Bld) [#/Vol] 1.39 10*3/uL Normal 1.00-4.00 [facility] Comment on above: Order Comment: Speci men Type: BLOOD SPECIMENOrdering Facility: [facility] Address: [address] [place] [address] Performed By: #### 5 7021-8 ####[facility]CLIA [id number] [place] [address] [place] Lymphocytes/100 WBC (Bld) 12.5 % Normal [facility] Comment on above: Order Comment: Speci men Type: BLOOD SPECIMENOrdering Facility: [facility] Address: [address] [place] [address] Performed By: #### 5 7021-8 ####[facility] LABCLIA [id number] [place] [address] [place] MCH (RBC) [Entitic mass] 26.4 pg Normal 26.0-34.0 [facility] Comment on above: Order Comment: Speci men Type: BLOOD SPECIMENOrdering Facility: [facility] Address: [address] [place] [address] Performed By: #### 5 7021-8 ####[facility] [id number] [place] [address] [place] MCHC (RBC) [Mass/Vol] 30.0 g/dL Low 30.5-36.0 [facility] Comment on above: Order Comment: Speci men Type: BLOOD SPECIMENOrdering Facility: [facility] Address: [address] [place] [address] Performed By: #### 5 7021-8 ####[facility] [id number] [place] [address] [place] MCV (RBC) [Entitic vol] 87.8 fL Normal 80.0-100.0 [facility] Comment on above: Order Comment: Speci men Type: BLOOD SPECIMENOrdering Facility: [facility] Address: [address] [place] [address] Performed By: #### 5 7021-8 ####[facility] [id number] [place] [address] [place] Monocytes (Bld) [#/Vol] 0.82 10*3/uL Normal <0.87 [facility] Comment on above: Order Comment: Speci men Type: BLOOD SPECIMENOrdering Facility: [facility] Address: [address] [place] [address] Performed By: #### 5 7021-8 ####[facility] [id number] [address] [place] Monocytes/100 WBC (Bld) 7.4 % Normal [facility] Comment on above: Order Comment: Speci men Type: BLOOD SPECIMENOrdering Facility: [facility] Address: [address] [place] [address] Performed By: #### 5 7021-8 ####[facility] LABCLIA [id number] [place] [address] [place] Neutrophils (Bld) [#/Vol] 8.45 10*3/uL High 1.45-7.50 [facility] Comment on above: Order Comment: Speci men Type: BLOOD SPECIMENOrdering Facility: [facility] Address: [address] [place] [address] Performed By: #### 5 7021-8 ####[facility]CLIA [id number] [address], [place] [address] [place] Neutrophils/100 WBC (Bld) 75.7 % Normal [facility] Comment on above: Order Comment: Speci men Type: BLOOD SPECIMENOrdering Facility: [facility] Address: [address] [place] [address] Performed By: #### 5 7021-8 ####[facility]CLIA [id number] [place] [address] [place] Nucleated RBC (Bld) [#/Vol] 10*3/uL Normal <0.01 [facility] Comment on above: Order Comment: Speci men Type: BLOOD SPECIMENOrdering Facility: [facility] Address: [address] [place] [address] Performed By: #### 5 7021-8 ####[facility]CLIA [id number] [place] [address] [place] Nucleated RBC/100 WBC (Bld) [Ratio] 0.0 /100 WBC Normal [facility] Comment on above: Order Comment: Speci men Type: BLOOD SPECIMENOrdering Facility: [facility] Address: [address] [place] [address] Performed By: #### 5 7021-8 ####[facility]CLIA [id number] [address], [place] [address] [place] Platelet mean volume (Bld) [Entitic vol] 10.1 fL Normal 9.0-12.7 [facility] Comment on above: Order Comment: Speci men Type: BLOOD SPECIMENOrdering Facility: [facility] Address: [address] [place] [address] Performed By: #### 5 7021-8 ####[facility]CLIA [id number] [place] [address] [place] Platelets (Bld) [#/Vol] 209 10*3/uL Normal 150-400 [facility] Comment on above: Order Comment: Speci men Type: BLOOD SPECIMENOrdering Facility: [facility] Address: [address] [place] [address] Performed By: #### 5 7021-8 ####[facility] [id number] [place] [address] [place] RBC (Bld) [#/Vol] 2.88 10*6/uL Low 3.90-5.20 [facility] Comment on above: Order Comment: Speci men Type: BLOOD SPECIMENOrdering Facility: [facility] Address: [address] [place] [address] Performed By: #### 5 7021-8 ####[facility] [id number] [place] [address] [place] WBC (Bld) [#/Vol] 11.15 10*3/uL High 3.70-11.00 [facility] Comment on above: Order Comment: Speci men Type: BLOOD SPECIMENOrdering Facility: [facility] Address: [address] [place] [address] Performed By: #### 5 7021-8 ####[facility] [id number] [place] [address] [place] CBC panel Auto (Bld)on 12-15 Erythrocyte distribution width (RBC) [Ratio] 21.4 % High 11.5-15.0 [facility] Comment on above: Order Comment: Speci men Type: BLOOD SPECIMENOrdering Facility: [facility] Address: [address] [place] [address] Performed By: #### 5 8410-2 ####[facility] [id number] [place] [address] [place] Hematocrit (Bld) [Volume fraction] 25.5 % Low 36.0-46.0 [facility] Comment on above: Order Comment: Speci men Type: BLOOD SPECIMENOrdering Facility: [facility] Address: [address] [place] [address] Performed By: #### 5 8410-2 ####[facility] [id number] [place] [address] [place] Hemoglobin (Bld) [Mass/Vol] 7.7 g/dL Low 11.5-15.5 [facility] Comment on above: Order Comment: Speci men Type: BLOOD SPECIMENOrdering Facility: [facility] Address: [address] [place] [address] Performed By: #### 5 8410-2 ####[facility] [id number] [place] [address] [place] MCH (RBC) [Entitic mass] 26.6 pg Normal 26.0-34.0 [facility] Comment on above: Order Comment: Speci men Type: BLOOD SPECIMENOrdering Facility: [facility] Address: [address] [place] [address] Performed By: #### 5 8410-2 ####[facility] [id number] [place] [address] [place] MCHC (RBC) [Mass/Vol] 30.2 g/dL Low 30.5-36.0 [facility] Comment on above: Order Comment: Speci men Type: BLOOD SPECIMENOrdering Facility: [facility] Address: [address] [place] [address] Performed By: #### 5 8410-2 ####[facility] [id number] [address] [place] [address] [place] MCV (RBC) [Entitic vol] 87.9 fL Normal 80.0-100.0 [facility] Comment on above: Order Comment: Speci men Type: BLOOD SPECIMENOrdering Facility: [facility] Address: [address] [place] [address] Performed By: #### 5 8410-2 ####[facility] [id number] [address], [place] [address] [place] Nucleated RBC (Bld) [#/Vol] 10*3/uL Normal <0.01 [facility] Comment on above: Order Comment: Speci men Type: BLOOD SPECIMENOrdering Facility: [facility] Address: [address] [place] [address] Performed By: #### 5 8410-2 ####[facility] [id number] [place] [address] [place] Platelet mean volume (Bld) [Entitic vol] 9.6 fL Normal 9.0-12.7 [facility] Comment on above: Order Comment: Speci men Type: BLOOD SPECIMENOrdering Facility: [facility] Address: [address] [place] [address] Performed By: #### 5 8410-2 ####[facility] [id number] [place] [address] [place] Platelets (Bld) [#/Vol] 212 10*3/uL Normal 150-400 [facility] Comment on above: Order Comment: Speci men Type: BLOOD SPECIMENOrdering Facility: [facility] Address: [address] [place] [address] Performed By: #### 5 8410-2 ####[facility] [id number] [place] [id number] [place] RBC (Bld) [#/Vol] 2.90 10*6/uL Low 3.90-5.20 [facility] Comment on above: Order Comment: Speci men Type: BLOOD SPECIMENOrdering Facility: [facility] Address: [address] [place] [address] Performed By: #### 5 8410-2 ####[facility] LABCLIA [id number] [address] [address] [place] WBC (Bld) [#/Vol] 11.25 10*3/uL High 3.70-11.00 [facility] Comment on above: Order Comment: Speci men Type: BLOOD SPECIMENOrdering Facility: [facility] Address: [address] [place] [address] Performed By: #### 5 8410-2 ####[facility] LABCLIA [id number] [place] [address] [place] CRP SerPl-ncon 12-15-2024 CRP [Mass/Vol] 26.8 mg/dL High <0.9 [facility] Comment on above: Order Comment: Speci men Type: BLOOD SPECIMENOrdering Facility: [facility] Address: [address] [place] [address] Performed By: #### 2 4323-8, , 1987-10, 2776-06 ####[facility] LABCLIA [id number] [place] [address] [place] Comprehensive metabolic 2000 panelon 12-15-2024 Albumin [Mass/Vol] 2.9 g/dL Low 3.9-4.9 [facility] Comment on above: Order Comment: Speci men Type: BLOOD SPECIMENOrdering Facility: [facility] Address: [address] [place] [address] Performed By: #### 2 4323-8, , 1987-10, 2776-06 ####[facility]CLIA [id number] [place] [address] [place] ALP [Catalytic activity/Vol] 95 U/L Normal 34-123 [facility] Comment on above: Order Comment: Speci men Type: BLOOD SPECIMENOrdering Facility: [facility] Address: [address] [place], [place] [address] Performed By: #### 2 432-8, , 1987-10, 2776-06 ####[facility] LABCLIA [id number] [place] [address] [place] ALT [Catalytic activity/Vol] 19 U/L Normal 7-38 [facility] Comment on above: Order Comment: Speci men Type: BLOOD SPECIMENOrdering Facility: [facility] Address: [address] [place], [place] [address] Performed By: #### 2 432-8, , 1987-10, 2776-06 ####[facility]CLIA [id number] [place] [address] [place] Anion gap [Moles/Vol] 11 mmol/L Normal 8-15 [facility] Comment on above: Order Comment: Speci men Type: BLOOD SPECIMENOrdering Facility: [facility] Address: [address] [place], [place] [address] Performed By: #### 2 432-8, , 2776-06 ####[facility]CLIA [id number] [place] [address] [place] AST [Catalytic activity/Vol] 11 U/L Low 13-35 [facility] Comment on above: Order Comment: Speci men Type: BLOOD SPECIMENOrdering Facility: [facility] Address: [address] [place] [address] Performed By: #### 2 4323-8, , 1987-10, 2776-06 ####[facility] LABCLIA [id number] [facility] [address] [place] [address] [place] Bilirubin [Mass/Vol] 0.5 mg/dL Normal 0.2-1.3 [facility] Comment on above: Order Comment: Speci men Type: BLOOD SPECIMENOrdering Facility: [facility] Address: [address] [place] [address] Performed By: #### 2 4323-01, , 2776-06 ####[facility] LABCLIA [id number] [address] [address] [place] Calcium [Mass/Vol] 8.6 mg/dL Normal 8.5-10.2 [facility] Comment on above: Order Comment: Speci men Type: BLOOD SPECIMENOrdering Facility: [facility] Address: [address] [place] [address] Performed By: #### 2 4323-01, , 2776-06 ####[facility]CLIA [id number] [address] [address] [place] Chloride [Moles/Vol] 100 mmol/L Normal 98-107 [facility] Comment on above: Order Comment: Speci men Type: BLOOD SPECIMENOrdering Facility: [facility] Address: [address] [place] [address] Performed By: #### 2 4323-01, , 2776-06 ####[facility]CLIA [id number] [address] [address] [place] CO2 [Moles/Vol] 23 mmol/L Normal 22-30 [facility] Comment on above: Order Comment: Speci men Type: BLOOD SPECIMENOrdering Facility: [facility] Address: [address] [place] [address] Performed By: #### 2 4323-01, , 2776-06 ####[facility]CLIA [id number] [address] [place] [address] [place] Creatinine [Mass/Vol] 0.75 mg/dL Normal 0.58-0.96 [facility] Comment on above: Order Comment: Dora finch Type: BLOOD SPECIMENOrdering Facility: [facility] Address: [address] [place] [address] Performed By: #### 2 4323-8, , 1987-10, 2776-06 ####[facility] LABCLIA [id number] [place] [address] [place] Creatinine and Glomerular filtration rate.predicted panel (S/P/Bld) 103 mL/min/1.73m??? Normal >=60 [facility] Comment on above: Order Comment: Dora finch Type: BLOOD SPECIMENOrdering Facility: [facility] Address: [address] [place] [address] Result Comment: Zeny mated Glomerular Filtration Rate [...] Performed By: #### 2 4323-8, , 2776-06 ####[facility]CLIA [id number] [address] [address] [place] Glucose [Mass/Vol] 103 mg/dL High 74-99 [facility] Comment on above: Order Comment: Dora finch Type: BLOOD SPECIMENOrdering Facility: [facility] Address: [address] [place] [id number] Result Comment: The [place] [employer] (ADA) provides guidance for cutoff [...] Standards of Medical Care in Diabetes 2016, [place] [employer]. Diabetes Care. 2016.39(Suppl 1). Performed By: #### 2 4323-01, , 1987-10, 2776-06 ####[facility] LABCLIA [id number] [facility] [address] [address] [place] Potassium [Moles/Vol] 3.0 mmol/L Low 3.7-5.1 [facility] Comment on above: Order Comment: Speci men Type: BLOOD SPECIMENOrdering Facility: [facility] Address: [address] [place] [address] Performed By: #### 2 4323-01, , 1987-10, 2776-06 ####[facility] [id number] [address] [address] [place] Protein [Mass/Vol] 6.0 g/dL Low 6.3-8.0 [facility] Comment on above: Order Comment: Speci men Type: BLOOD SPECIMENOrdering Facility: [facility] Address: [address] [place], [place] [id number] Performed By: #### 2 4323-01, , 2776-06 ####[facility] [id number] [address] [address] [place] Sodium [Moles/Vol] 134 mmol/L Low 136-144 [facility] Comment on above: Order Comment: Speci men Type: BLOOD SPECIMENOrdering Facility: [facility] Address: [address] [place] [id number] Performed By: #### 2 4323-01, , 2776-06 ####[facility]CL[facility] [id number] [address] [address] [place] Urea nitrogen [Mass/Vol] 11 mg/dL Normal 7-21 [facility] Comment on above: Order Comment: Speci men Type: BLOOD SPECIMENOrdering Facility: [facility] Address: [address] [place] [address] Performed By: #### 2 4323-8, , 1987-10, 2776-06 ####[facility] LABCLIA [id number] [place] [address] [place] Magnesium SerPl-ncon 12-15 Magnesium [Mass/Vol] 1.9 mg/dL Normal 1.7-2.3 [facility] Comment on above: Order Comment: Speci men Type: BLOOD SPECIMENOrdering Facility: [facility] Address: [address] [place] [address] Performed By: #### 2 432-8, , 1987-10, 2776-06 ####[facility] LABCLIA [id number] [place] [address] [place] Phosphate SerPl-mCncon 12-15 Phosphate [Mass/Vol] 2.8 mg/dL Normal 2.7-4.8 [facility] Comment on above: Order Comment: Speci men Type: BLOOD SPECIMENOrdering Facility: [facility] Address: [address] [place] [address] Performed By: #### 2 4323-8, , 1987-10, 2776-06 ####[facility] LABCLIA [id number] [place] [address] [place] CASE MANAGEMon 12-14-2024 CASE MANAGEM Normal [facility] CBC W Auto Differential pane l (Bld)on 12-14-2024 Basophils (Bld) [#/Vol] 0.05 10*3/uL Normal <0.11 [facility] Comment on above: Order Comment: Speci men Type: BLOOD SPECIMENOrdering Facility: [facility] Address: [address] [place] [address] Performed By: #### 5 7021-8 ####[facility] LABCLIA [id number] [address], [place] [address] [place] Basophils/100 WBC (Bld) 0.3 % Normal [facility] Comment on above: Order Comment: Speci men Type: BLOOD SPECIMENOrdering Facility: [facility] Address: [address] [place] [address] Performed By: #### 5 7021-8 ####[facility] LABCLIA [id number] [address], [place] [address] [place] Differential cell count method Nom (Bld) Auto Normal [facility] Comment on above: Order Comment: Speci men Type: BLOOD SPECIMENOrdering Facility: [facility] Address: [address] [place] [address] Performed By: #### 5 7021-8 ####[facility] LABCLIA [id number] [place] [address] [place] Eosinophils (Bld) [#/Vol] 0.14 10*3/uL Normal <0.46 [facility] Comment on above: Order Comment: Speci men Type: BLOOD SPECIMENOrdering Facility: [facility] Address: [address] [place] [address] Performed By: #### 5 7021-8 ####[facility] LABCLIA [id number] [address], [place] [address] [place] Eosinophils/100 WBC (Bld) 0.9 % Normal [facility] Comment on above: Order Comment: Speci men Type: BLOOD SPECIMENOrdering Facility: [facility] Address: [address] [place] [address] Performed By: #### 5 7021-8 ####[facility] LABCLIA [id number] [place] [address] [place] Erythrocyte distribution width (RBC) [Ratio] 22.0 % High 11.5-15.0 [facility] Comment on above: Order Comment: Speci men Type: BLOOD SPECIMENOrdering Facility: [facility] Address: [address] [place] [address] Performed By: #### 5 7021-8 ####[facility] LABCLIA [id number] [place] [address] [place] Hematocrit (Bld) [Volume fraction] 28.7 % Low 36.0-46.0 [facility] Comment on above: Order Comment: Speci men Type: BLOOD SPECIMENOrdering Facility: [facility] Address: [address] [place] [address] Performed By: #### 5 7021-8 ####[facility] LABCLIA [id number] [place] [address] [place] Hemoglobin (Bld) [Mass/Vol] 8.6 g/dL Low 11.5-15.5 [facility] Comment on above: Order Comment: Speci men Type: BLOOD SPECIMENOrdering Facility: [facility] Address: [address] [place] [address] Performed By: #### 5 7021-8 ####[facility] LABCLIA [id number] [place] [address] [place] Immature granulocytes (Bld) [#/Vol] 0.12 10*3/uL High <0.10 [facility] Comment on above: Order Comment: Speci men Type: BLOOD SPECIMENOrdering Facility: [facility] Address: [address] [place] [address] Performed By: #### 5 7021-8 ####[facility] LABCLIA [id number] [place] [address] [place] Immature granulocytes/100 WBC (Bld) 0.7 % Normal [facility] Comment on above: Order Comment: Speci men Type: BLOOD SPECIMENOrdering Facility: [facility] Address: [address] [place] [address] Performed By: #### 5 7021-8 ####[facility] LABCLIA [id number] [place] [address] [place] Lymphocytes (Bld) [#/Vol] 1.56 10*3/uL Normal 1.00-4.00 [facility] Comment on above: Order Comment: Speci men Type: BLOOD SPECIMENOrdering Facility: [facility] Address: [address] [place] [address] Performed By: #### 5 7021-8 ####[facility] LABCLIA [id number] [place] [address] [place] Lymphocytes/100 WBC (Bld) 9.7 % Normal [facility] Comment on above: Order Comment: Speci men Type: BLOOD SPECIMENOrdering Facility: [facility] Address: [address] [place] [address] Performed By: #### 5 7021-8 ####[facility] LABCLIA [id number] [place] [address] [place] MCH (RBC) [Entitic mass] 26.5 pg Normal 26.0-34.0 [facility] Comment on above: Order Comment: Speci men Type: BLOOD SPECIMENOrdering Facility: [facility] Address: [address] [place] [address] Performed By: #### 5 7021-8 ####[facility] LABCLIA [id number] [place] [address] [place] MCHC (RBC) [Mass/Vol] 30.0 g/dL Low 30.5-36.0 [facility] Comment on above: Order Comment: Speci men Type: BLOOD SPECIMENOrdering Facility: [facility] Address: [address] [place] [address] Performed By: #### 5 7021-8 ####[facility] LABCLIA [id number] [place] [address] [place] MCV (RBC) [Entitic vol] 88.6 fL Normal 80.0-100.0 [facility] Comment on above: Order Comment: Speci men Type: BLOOD SPECIMENOrdering Facility: [facility] Address: [address] [place] [address] Performed By: #### 5 7021-8 ####[facility] LABCLIA [id number] [address] [place] [address] [place] Monocytes (Bld) [#/Vol] 1.48 10*3/uL High <0.87 [facility] Comment on above: Order Comment: Speci men Type: BLOOD SPECIMENOrdering Facility: [facility] Address: [address] [place] [address] Performed By: #### 5 7021-8 ####[facility] LABCLIA [id number] [address], [facility]95 [place] Monocytes/100 WBC (Bld) 9.2 % Normal [facility] Comment on above: Order Comment: Speci men Type: BLOOD SPECIMENOrdering Facility: [facility] Address: [address] [place] [address] Performed By: #### 5 7021-8 ####[facility] LABCLIA [id number] [address] [place] [address] [place] Neutrophils (Bld) [#/Vol] 12.66 10*3/uL High 1.45-7.50 [facility] Comment on above: Order Comment: Speci men Type: BLOOD SPECIMENOrdering Facility: [facility] Address: [address] [place] [address] Performed By: #### 5 7021-8 ####[facility] LABCLIA [id number] [address] [place] [address] [place] Neutrophils/100 WBC (Bld) 79.2 % Normal [facility] Comment on above: Order Comment: Speci men Type: BLOOD SPECIMENOrdering Facility: [facility] Address: [address] [place] [address] Performed By: #### 5 7021-8 ####[facility] LABCLIA [id number] [address] [address] [place] Nucleated RBC (Bld) [#/Vol] 0.02 10*3/uL High <0.01 [facility] Comment on above: Order Comment: Speci men Type: BLOOD SPECIMENOrdering Facility: [facility] Address: [address] [place] [address] Performed By: #### 5 7021-8 ####[facility] LABCLIA [id number] [address], [place] [address] [place] Nucleated RBC/100 WBC (Bld) [Ratio] 0.1 /100 WBC Normal [facility] Comment on above: Order Comment: Speci men Type: BLOOD SPECIMENOrdering Facility: [facility] Address: [address] [place] [address] Performed By: #### 5 7021-8 ####[facility] LABIA [id number] [place] [address] [place] Platelet mean volume (Bld) [Entitic vol] 9.7 fL Normal 9.0-12.7 [facility] Comment on above: Order Comment: Speci men Type: BLOOD SPECIMENOrdering Facility: [facility] Address: [address] [place] [address] Performed By: #### 5 7021-8 ####[facility] LABIA [id number] [place] [address] [place] Platelets (Bld) [#/Vol] 236 10*3/uL Normal 150-400 [facility] Comment on above: Order Comment: Speci men Type: BLOOD SPECIMENOrdering Facility: [facility] Address: [address] [place] [address] Performed By: #### 5 7021-8 ####[facility] LABCLIA [id number] [place] [address] [place] RBC (Bld) [#/Vol] 3.24 10*6/uL Low 3.90-5.20 [facility] Comment on above: Order Comment: Speci men Type: BLOOD SPECIMENOrdering Facility: [facility] Address: [address] [place] [address] Performed By: #### 5 7021-8 ####[facility] LABCLIA [id number] [address] [address] [place] WBC (Bld) [#/Vol] 16.01 10*3/uL High 3.70-11.00 [facility] Comment on above: Order Comment: Speci men Type: BLOOD SPECIMENOrdering Facility: [facility] Address: [address] [place] [address] Performed By: #### 5 7021-8 ####[facility] LABCLIA [id number] [place] [address] [place] CONSULT PROGon 12-14-2024 CONSULT PROG Normal [facility] CONSULT PROG Normal [facility] Comprehensive metabolic 2000 panelon 12-14-2024 Albumin [Mass/Vol] 3.3 g/dL Low 3.9-4.9 [facility] Comment on above: Order Comment: Speci men Type: BLOOD SPECIMENOrdering Facility: [facility] Address: [address] [place] [address] Performed By: #### 2 4323-8, 2777-, 33873-5 ####[facility] LABCLIA [id number] [address] [address] [place] ALP [Catalytic activity/Vol] 103 U/L Normal 34-123 [facility] Comment on above: Order Comment: Speci men Type: BLOOD SPECIMENOrdering Facility: [facility] Address: [address] [place] [address] Performed By: #### 2 4323-8, 2777-1, ####[facility] LABCLIA [id number] [address] [address] [place] ALT [Catalytic activity/Vol] 25 U/L Normal 7-38 [facility] Comment on above: Order Comment: Speci men Type: BLOOD SPECIMENOrdering Facility: [facility] Address: [address] [place], [place] [address] Performed By: #### 2 4323-8, 27712-25, ####[facility] LABCLIA [id number] [address] [address] [place] Anion gap [Moles/Vol] 12 mmol/L Normal 8-15 [facility] Comment on above: Order Comment: Speci men Type: BLOOD SPECIMENOrdering Facility: [facility] Address: [address] [place] [address] Performed By: #### 2 4323-8, 2776-06, ####[facility] LABCLIA [id number] [address] [place] AST [Catalytic activity/Vol] 19 U/L Normal 13-35 [facility] Comment on above: Order Comment: Speci men Type: BLOOD SPECIMENOrdering Facility: [facility] Address: [address] [place] [address] Performed By: #### 2 4323-8, 2776-06, ####[facility] LABIA [id number] [place] [address] [place] Bilirubin [Mass/Vol] 0.9 mg/dL Normal 0.2-1.3 [facility] Comment on above: Order Comment: Speci men Type: BLOOD SPECIMENOrdering Facility: [facility] Address: [address] [place] [address] Performed By: #### 2 4323-8, 2776-06, ####[facility] LABCLIA [id number] [facility] [address] [address] [place] Calcium [Mass/Vol] 8.6 mg/dL Normal 8.5-10.2 [facility] Comment on above: Order Comment: Speci men Type: BLOOD SPECIMENOrdering Facility: [facility] Address: [address] [place] [address] Performed By: #### 2 4323-8, 2776-06, ####[facility] LABCLIA [id number] [facility] [place] [address] [place] Chloride [Moles/Vol] 100 mmol/L Normal 98-107 [facility] Comment on above: Order Comment: Speci men Type: BLOOD SPECIMENOrdering Facility: [facility] Address: [address] [place], [place] [address] Performed By: #### 2 4323-8, 2776-06, ####[facility] LABCLIA [id number] [address] [address] [place] CO2 [Moles/Vol] 21 mmol/L Low 22-30 [facility] Comment on above: Order Comment: Speci men Type: BLOOD SPECIMENOrdering Facility: [facility] Address: [address] [place], [place] [address] Performed By: #### 2 4323-8, 2776-06, ####[facility] LABCLIA [id number] [facility] [address] [place] [address] [place] Creatinine [Mass/Vol] 0.91 mg/dL Normal 0.58-0.96 [facility] Comment on above: Order Comment: Speci men Type: BLOOD SPECIMENOrdering Facility: [facility] Address: [address] [place], [place] [address] Performed By: #### 2 4323-8, 2776-06, ####[facility] LABCLIA [id number] [facility] [address] [address] [place] Creatinine and Glomerular filtration rate.predicted panel (S/P/Bld) 81 mL/min/1.73m??? Normal >=60 [facility] Comment on above: Order Comment: Speci men Type: BLOOD SPECIMENOrdering Facility: [facility] Address: [address] [place] [address] Result Comment: Zeny mated Glomerular Filtration Rate [...] actual GFR. Performed By: #### 2 4323-8, 277-, ####[facility] LABIA [id number] [place] [address] [place] Glucose [Mass/Vol] 139 mg/dL High 74-99 [facility] Comment on above: Order Comment: Dora finch Type: BLOOD SPECIMENOrdering Facility: [facility] Address: [address] [place] [address] Result Comment: The [place] [employer] (ADA) provides guidance for cutoff [...] Standards of Medical Care in Diabetes 2016, [place] [employer]. Diabetes Care. 2016.39(Suppl 1). Performed By: #### 2 4323-8, 277-, ####[facility] LABIA [id number] [place] [address] [place] Potassium [Moles/Vol] 3.8 mmol/L Normal 3.7-5.1 [facility] Comment on above: Order Comment: Dora finch Type: BLOOD SPECIMENOrdering Facility: [facility] Address: [address] [place] [address] Performed By: #### 2 4323-8, 2777-1, ####[facility] LABIA [id number] [place] [address] [place] Protein [Mass/Vol] 6.2 g/dL Low 6.3-8.0 [facility] Comment on above: Order Comment: Speci men Type: BLOOD SPECIMENOrdering Facility: [facility] Address: [address] [place] [address] Performed By: #### 2 4323-8, 2777, ####[facility] LABIA [id number] [place] [address] [place] Sodium [Moles/Vol] 133 mmol/L Low 136-144 [facility] Comment on above: Order Comment: Speci men Type: BLOOD SPECIMENOrdering Facility: [facility] Address: [address] [place] [address] Performed By: #### 2 4323-8, 27712-25, ####[facility] LABIA [id number] [place] [address] [place] Urea nitrogen [Mass/Vol] 11 mg/dL Normal 7-21 [facility] Comment on above: Order Comment: Speci men Type: BLOOD SPECIMENOrdering Facility: [facility] Address: [address] [place] [address] Performed By: #### 2 4323-8, 2777, ####[facility] LABIA [id number] [address] [address] [place] Magnesium SerPl-mCncon 12-14 Magnesium [Mass/Vol] 1.9 mg/dL Normal 1.7-2.3 [facility] Comment on above: Order Comment: Speci men Type: BLOOD SPECIMENOrdering Facility: [facility] Address: [address] [place], [place] [address] Performed By: #### 2 4323-8, 2777-1, 04561-4 ####[facility] LABCLIA [id number] [address], [facility]95 [place] Phosphate SerPl-mCncon 12-14 Phosphate [Mass/Vol] 2.3 mg/dL Low 2.7-4.8 [facility] Comment on above: Order Comment: Speci men Type: BLOOD SPECIMENOrdering Facility: [facility] Address: [address] [place] [address] Performed By: #### 2 4323-8, 2777-1, ####[facility] LABIA [id number] [address], [place] [address] [place] XR ABDOMEN 1V SUPINEon 12-14 XR ABDOMEN 1V SUPINE Normal [facility] CBC W Auto Differential pane l (Bld)on 12-13-2024 Basophils (Bld) [#/Vol] 0.04 10*3/uL Normal <0.11 [facility] Comment on above: Order Comment: Speci men Type: BLOOD SPECIMENOrdering Facility: [facility] Address: [address] [place] [address] Performed By: #### 5 7021-8 ####[facility] LABIA [id number] [address] [place] Basophils/100 WBC (Bld) 0.3 % Normal [facility] Comment on above: Order Comment: Speci men Type: BLOOD SPECIMENOrdering Facility: [facility] Address: [address] [place] [address] Performed By: #### 5 7021-8 ####[facility] LABIA [id number] [address] [place] Differential cell count method Nom (Bld) Auto Normal [facility] Comment on above: Order Comment: Speci men Type: BLOOD SPECIMENOrdering Facility: [facility] Address: [address] [place] [address] Performed By: #### 5 7021-8 ####[facility] LABCLIA [id number] [address], [place] [address] [place] Eosinophils (Bld) [#/Vol] 10*3/uL Normal <0.46 [facility] Comment on above: Order Comment: Speci men Type: BLOOD SPECIMENOrdering Facility: [facility] Address: [address] [place] [address] Performed By: #### 5 7021-8 ####[facility] LABCLIA [id number] [address], [place] [address] [place] Eosinophils/100 WBC (Bld) 0.1 % Normal [facility] Comment on above: Order Comment: Speci men Type: BLOOD SPECIMENOrdering Facility: [facility] Address: [address] [place] [address] Performed By: #### 5 7021-8 ####[facility] LABCLIA [id number] [address], [place] [address] [place] Erythrocyte distribution width (RBC) [Ratio] 23.1 % High 11.5-15.0 [facility] Comment on above: Order Comment: Speci men Type: BLOOD SPECIMENOrdering Facility: [facility] Address: [address] [place] [address] Performed By: #### 5 7021-8 ####[facility] LABCLIA [id number] [address], [facility]95 [place] Hematocrit (Bld) [Volume fraction] 34.3 % Low 36.0-46.0 [facility] Comment on above: Order Comment: Speci men Type: BLOOD SPECIMENOrdering Facility: [facility] Address: [address] [place] [address] Performed By: #### 5 7021-8 ####[facility] LABCLIA [id number] [address], [facility]95 [place] Hemoglobin (Bld) [Mass/Vol] 10.3 g/dL Low 11.5-15.5 [facility] Comment on above: Order Comment: Speci men Type: BLOOD SPECIMENOrdering Facility: [facility] Address: [address] [place] [address] Performed By: #### 5 7021-8 ####[facility] LABCLIA [id number] [place] [address] [place] Immature granulocytes (Bld) [#/Vol] 0.12 10*3/uL High <0.10 [facility] Comment on above: Order Comment: Speci men Type: BLOOD SPECIMENOrdering Facility: [facility] Address: [address] [place] [address] Performed By: #### 5 7021-8 ####[facility] LABCLIA [id number] [address] [place] Immature granulocytes/100 WBC (Bld) 0.8 % Normal [facility] Comment on above: Order Comment: Speci men Type: BLOOD SPECIMENOrdering Facility: [facility] Address: [address] [place] [address] Performed By: #### 5 7021-8 ####[facility] LABCLIA [id number] [place] [address] [place] Lymphocytes (Bld) [#/Vol] 1.27 10*3/uL Normal 1.00-4.00 [facility] Comment on above: Order Comment: Speci men Type: BLOOD SPECIMENOrdering Facility: [facility] Address: [address] [place] [address] Performed By: #### 5 7021-8 ####[facility] LABCLIA [id number] [place] [address] [place] Lymphocytes/100 WBC (Bld) 8.0 % Normal [facility] Comment on above: Order Comment: Speci men Type: BLOOD SPECIMENOrdering Facility: [facility] Address: [address] [place] [address] Performed By: #### 5 7021-8 ####[facility] LABIA [id number] [place] [address] [place] MCH (RBC) [Entitic mass] 26.9 pg Normal 26.0-34.0 [facility] Comment on above: Order Comment: Speci men Type: BLOOD SPECIMENOrdering Facility: [facility] Address: [address] [place] [address] Performed By: #### 5 7021-8 ####[facility] LABIA [id number] [place] [address] [place] MCHC (RBC) [Mass/Vol] 30.0 g/dL Low 30.5-36.0 [facility] Comment on above: Order Comment: Speci men Type: BLOOD SPECIMENOrdering Facility: [facility] Address: [address] [place] [address] Performed By: #### 5 7021-8 ####[facility] LABIA [id number] [place] [address] [place] MCV (RBC) [Entitic vol] 89.6 fL Normal 80.0-100.0 [facility] Comment on above: Order Comment: Speci men Type: BLOOD SPECIMENOrdering Facility: [facility] Address: [address] [place] [address] Performed By: #### 5 7021-8 ####[facility] LABIA [id number] [place] [address] [place] Monocytes (Bld) [#/Vol] 1.51 10*3/uL High <0.87 [facility] Comment on above: Order Comment: Speci men Type: BLOOD SPECIMENOrdering Facility: [facility] Address: [address] [place] [address] Performed By: #### 5 7021-8 ####[facility] LABCLIA [id number] [address], [facility]95 [place] Monocytes/100 WBC (Bld) 9.5 % Normal [facility] Comment on above: Order Comment: Speci men Type: BLOOD SPECIMENOrdering Facility: [facility] Address: [address] [place] [address] Performed By: #### 5 7021-8 ####[facility] LABCLIA [id number] [address], [place] [address] [place] Neutrophils (Bld) [#/Vol] 12.87 10*3/uL High 1.45-7.50 [facility] Comment on above: Order Comment: Speci men Type: BLOOD SPECIMENOrdering Facility: [facility] Address: [address] [place] [address] Performed By: #### 5 7021-8 ####[facility] LABCLIA [id number] [place] [address] [place] Neutrophils/100 WBC (Bld) 81.3 % Normal [facility] Comment on above: Order Comment: Speci men Type: BLOOD SPECIMENOrdering Facility: [facility] Address: [address] [place] [address] Performed By: #### 5 7021-8 ####[facility] LABCLIA [id number] [place] [address] [place] Nucleated RBC (Bld) [#/Vol] 0.02 10*3/uL High <0.01 [facility] Comment on above: Order Comment: Speci men Type: BLOOD SPECIMENOrdering Facility: [facility] Address: [address] [place] [address] Performed By: #### 5 7021-8 ####[facility] LABCLIA [id number] [place] [address] [place] Nucleated RBC/100 WBC (Bld) [Ratio] 0.1 /100 WBC Normal [facility] Comment on above: Order Comment: Speci men Type: BLOOD SPECIMENOrdering Facility: [facility] Address: [address] [place] [address] Performed By: #### 5 7021-8 ####[facility] LABIA [id number] [place] [address] [place] Platelet mean volume (Bld) [Entitic vol] 9.7 fL Normal 9.0-12.7 [facility] Comment on above: Order Comment: Speci men Type: BLOOD SPECIMENOrdering Facility: [facility] Address: [address] [place] [address] Performed By: #### 5 7021-8 ####[facility] LABIA [id number] [place] [address] [place] Platelets (Bld) [#/Vol] 274 10*3/uL Normal 150-400 [facility] Comment on above: Order Comment: Speci men Type: BLOOD SPECIMENOrdering Facility: [facility] Address: [address] [place] [address] Performed By: #### 5 7021-8 ####[facility] LABIA [id number] [place] [address] [place] RBC (Bld) [#/Vol] 3.83 10*6/uL Low 3.90-5.20 [facility] Comment on above: Order Comment: Speci men Type: BLOOD SPECIMENOrdering Facility: [facility] Address: [address] [place] [address] Performed By: #### 5 7021-8 ####[facility] LABIA [id number] [place] [address] [place] WBC (Bld) [#/Vol] 15.82 10*3/uL High 3.70-11.00 [facility] Comment on above: Order Comment: Speci men Type: BLOOD SPECIMENOrdering Facility: [facility] Address: [address] [place] [address] Performed By: #### 5 7021-8 ####[facility] LABCLIA [id number] [place] [address] [place] CNPNon 12-13-2024 CNPN Normal [facility] CONSULTon 12-13-2024 CONSULT Normal [facility] CONSULT PROGon 12-13-2024 CONSULT PROG Normal [facility] CONSULT PROG Normal [facility] CRP SerPl-mCncon 12-13-2024 CRP [Mass/Vol] 14.4 mg/dL High <0.9 [facility] Comment on above: Order Comment: Speci men Type: BLOOD SPECIMENOrdering Facility: [facility] Address: [address] [place] [address] Performed By: #### 1 988-5 ####[facility] LABCLIA [id number] [place] [address] [place] Comprehensive metabolic 2000 panelon 12-13-2024 Albumin [Mass/Vol] 3.8 g/dL Low 3.9-4.9 [facility] Comment on above: Order Comment: Speci men Type: BLOOD SPECIMENOrdering Facility: [facility] Address: [address] [place] [address] Performed By: #### 1 9123-9, 43546-7, 2777- ####[facility] LABCLIA [id number] [place] [address] [place] ALP [Catalytic activity/Vol] 118 U/L Normal 34-123 [facility] Comment on above: Order Comment: Speci men Type: BLOOD SPECIMENOrdering Facility: [facility] Address: [address] [place] [address] Performed By: #### 1 9123-9, 77287-2, 2777- ####[facility] LABCLIA [id number] [address] [address] [place] ALT [Catalytic activity/Vol] 40 U/L High 7-38 [facility] Comment on above: Order Comment: Speci men Type: BLOOD SPECIMENOrdering Facility: [facility] Address: [address] [place] [address] Performed By: #### 1 9123-9, 40931-8, 27712-25 ####[facility] LABCLIA [id number] [address] [address] [place] Anion gap [Moles/Vol] 14 mmol/L Normal 8-15 [facility] Comment on above: Order Comment: Speci men Type: BLOOD SPECIMENOrdering Facility: [facility] Address: [address] [place], [place] [address] Performed By: #### 1 9123-9, 74845-5, 27712-25 ####[facility] LABCLIA [id number] [place] [address] [place] AST [Catalytic activity/Vol] 31 U/L Normal 13-35 [facility] Comment on above: Order Comment: Speci men Type: BLOOD SPECIMENOrdering Facility: [facility] Address: [address] [place] [address] Performed By: #### 1 9123-9, 27794-3, 27712-25 ####[facility] LABCLIA [id number] [place] [address] [place] Bilirubin [Mass/Vol] 1.1 mg/dL Normal 0.2-1.3 [facility] Comment on above: Order Comment: Speci men Type: BLOOD SPECIMENOrdering Facility: [facility] Address: [address] [place], [place] [address] Performed By: #### 1 9123-9, 43477-9, 27712-25 ####[facility] LABCLIA [id number] [place] [address] [place] Calcium [Mass/Vol] 9.0 mg/dL Normal 8.5-10.2 [facility] Comment on above: Order Comment: Speci men Type: BLOOD SPECIMENOrdering Facility: [facility] Address: [address] [place] [address] Performed By: #### 1 9123-9, 53999-5, 2777-1 ####[facility] LABIA [id number] [place] [address] [place] Chloride [Moles/Vol] 102 mmol/L Normal 98-107 [facility] Comment on above: Order Comment: Speci men Type: BLOOD SPECIMENOrdering Facility: [facility] Address: [address] [place] [address] Performed By: #### 1 9123-9, 05584-4, 2777- ####[facility] LABIA [id number] [place] [address] [place] CO2 [Moles/Vol] 21 mmol/L Low 22-30 [facility] Comment on above: Order Comment: Speci men Type: BLOOD SPECIMENOrdering Facility: [facility] Address: [address] [place] [address] Performed By: #### 1 9123-9, 10250-3, 2777- ####[facility] LABIA [id number] [place] [address] [place] Creatinine [Mass/Vol] 0.74 mg/dL Normal 0.58-0.96 [facility] Comment on above: Order Comment: Speci men Type: BLOOD SPECIMENOrdering Facility: [facility] Address: [address] [place] [address] Performed By: #### 1 9123-9, 72999-5, 2777- ####[facility] LABIA [id number] [place] [address] [place] Creatinine and Glomerular filtration rate.predicted panel (S/P/Bld) 104 mL/min/1.73m??? Normal >=60 [facility] Comment on above: Order Comment: Speci men Type: BLOOD SPECIMENOrdering Facility: [facility] Address: [address] [place] [address] Result Comment: Zeny mated Glomerular Filtration Rate [...] actual GFR. Performed By: #### 1 9123-9, 52990-8, 2776-06 ####[facility] LABIA [id number] [address] [address] [place] Glucose [Mass/Vol] 124 mg/dL High 74-99 [facility] Comment on above: Order Comment: Dora finch Type: BLOOD SPECIMENOrdering Facility: [facility] Address: [address] [place] [address] Result Comment: The [place] [employer] (ADA) provides guidance for cutoff [...] Standards of Medical Care in Diabetes 2016, [place] [employer]. Diabetes Care. 2016.39(Suppl 1). Performed By: #### 1 9123-9, 05072-8, 2776-06 ####[facility] LABIA [id number] [address] [address] [place] Potassium [Moles/Vol] 4.5 mmol/L Normal 3.7-5.1 [facility] Comment on above: Order Comment: Dora finch Type: BLOOD SPECIMENOrdering Facility: [facility] Address: [address] [place] [address] Performed By: #### 1 9123-9, 69893-7, 27712-25 ####[facility] LABIA [id number] [address] [address] [place] Protein [Mass/Vol] 6.5 g/dL Normal 6.3-8.0 [facility] Comment on above: Order Comment: Speci men Type: BLOOD SPECIMENOrdering Facility: [facility] Address: [address] [place] [address] Performed By: #### 1 9123-9, 41492-8, 27712-25 ####[facility] LABIA [id number] [place] [address] [place] Sodium [Moles/Vol] 137 mmol/L Normal 136-144 [facility] Comment on above: Order Comment: Speci men Type: BLOOD SPECIMENOrdering Facility: [facility] Address: [address] [place] [address] Performed By: #### 1 9123-9, 97853-4, 27712-25 ####[facility] LABIA [id number] [place] [address] [place] Urea nitrogen [Mass/Vol] 11 mg/dL Normal 7-21 [facility] Comment on above: Order Comment: Speci men Type: BLOOD SPECIMENOrdering Facility: [facility] Address: [address] [place] [address] Performed By: #### 1 9123-9, 58350-2, 27712-25 ####[facility] LABIA [id number] [address] [address] [place] Magnesium SerPl-mCncon 12-13 Magnesium [Mass/Vol] 1.6 mg/dL Low 1.7-2.3 [facility] Comment on above: Order Comment: Speci men Type: BLOOD SPECIMENOrdering Facility: [facility] Address: [address] [place] [address] Performed By: #### 1 9123-9, 15543-0, 277- ####[facility] LABCLIA [id number] [place] [address] [place] Phosphate SerPl-mCncon 12-13 Phosphate [Mass/Vol] 3.8 mg/dL Normal 2.7-4.8 [facility] Comment on above: Order Comment: Speci men Type: BLOOD SPECIMENOrdering Facility: [facility] Address: [address] [place] [address] Performed By: #### 1 9123-9, 02925-1, 2777-1 ####[facility] LABCLIA [id number] [place] [address] [place] ANES POSTPROC EVALon 025 ANES POSTPROC EVAL Normal [facility] ANES PRE-OPon 12-12-2024 ANES PRE-OP Normal [facility] ARTERIAL BLOOD GASESon 12-12 Base deficit (BldA) [Moles/Vol] -6 mmol/L Low -2-0 [facility] Comment on above: Order Comment: Speci men Type: ARTERIAL BLOOD SPECIMENOrdering Facility: [facility] Address: [address] [place] [address] Performed By: #### A LLBG ####[facility] [id number] [place] [id number] [place] Body temperature 97.34 [degF] Normal [facility] Comment on above: Order Comment: Speci men Type: ARTERIAL BLOOD SPECIMENOrdering Facility: [facility] Address: [address] [place] [address] Performed By: #### A LLBG ####[facility] LABIA [id number] [place] [address] [place] Calcium.ionized (Bld) [Mass/Vol] 1.19 mmol/L Normal 1.08-1.30 [facility] Comment on above: Order Comment: Speci men Type: ARTERIAL BLOOD SPECIMENOrdering Facility: [facility] Address: [address] [place] [address] Performed By: #### A LLBG ####[facility] LABIA [id number] [place] [address] [place] Calcium.ionized adjusted to pH 7.4 (BldA) [Moles/Vol] 1.15 mmol/L Normal 1.08-1.30 [facility] Comment on above: Order Comment: Speci men Type: ARTERIAL BLOOD SPECIMENOrdering Facility: [facility] Address: [address] [place] [address] Performed By: #### A LLBG ####[facility] [id number] [place] [address] [place] Carboxyhemoglobin (BldA) [Mass fraction] 1.6 % Normal 0.0-2.0 [facility] Comment on above: Order Comment: Speci men Type: ARTERIAL BLOOD SPECIMENOrdering Facility: [facility] Address: [address] [place] [address] Result Comment: Carb oxyhemoglobin Reference Range for Smokers: 2.0-8.0% Performed By: #### A LLBG ####[facility] LABIA [id number] [place] [address] [place] CO2 (Bld) [Partial pressure] 38 mm Hg Normal 36-46 [facility] Comment on above: Order Comment: Speci men Type: ARTERIAL BLOOD SPECIMENOrdering Facility: [facility] Address: [address] [place] [address] Performed By: #### A LLBG ####[facility] LABIA [id number] [place] [address] [place] CO2 adjusted to patient's actual temperature (Bld) [Partial pressure] 36 mmHg Normal 36-46 [facility] Comment on above: Order Comment: Speci men Type: ARTERIAL BLOOD SPECIMENOrdering Facility: [facility] Address: [address] [place] [address] Performed By: #### A LLBG ####[facility] LABCLIA [id number] [place] [address] [place] Glucose [Mass/Vol] 178 mg/dL High 60-105 [facility] Comment on above: Order Comment: Speci men Type: ARTERIAL BLOOD SPECIMENOrdering Facility: [facility] Address: [address] [place] [address] Performed By: #### A LLBG ####[facility] LABCLIA [id number] [place] [address] [place] HCO3 (Bld) [Moles/Vol] 19 mmol/L Low 22-26 [facility] Comment on above: Order Comment: Speci men Type: ARTERIAL BLOOD SPECIMENOrdering Facility: [facility] Address: [address] [place] [address] Performed By: #### A LLBG ####[facility] LABCLIA [id number] [place] [address] [place] Hematocrit (Bld) [Volume fraction] 27.9 % Low 36.0-46.0 [facility] Comment on above: Order Comment: Speci men Type: ARTERIAL BLOOD SPECIMENOrdering Facility: [facility] Address: [address] [place] [address] Performed By: #### A LLBG ####[facility] LABCLIA [id number] [place] [address] [place] Hemoglobin (Bld) [Mass/Vol] 9.0 g/dL Low 11.5-15.5 [facility] Comment on above: Order Comment: Speci men Type: ARTERIAL BLOOD SPECIMENOrdering Facility: [facility] Address: [address] [place] [address] Performed By: #### A LLBG ####[facility] LABCLIA [id number] [place] [id number] [place] Lactate [Moles/Vol] 5.1 mmol/L High 0.5-2.2 [facility] Comment on above: Order Comment: Speci men Type: ARTERIAL BLOOD SPECIMENOrdering Facility: [facility] Address: [address] [place] [address] Performed By: #### A LLBG ####[facility] LABCLIA [id number] [address] [address] [place] LITERS 2 Liters/min Normal [facility] Comment on above: Order Comment: Speci men Type: ARTERIAL BLOOD SPECIMENOrdering Facility: [facility] Address: [address] [place] [address] Performed By: #### A LLBG ####[facility] LABCLIA [id number] [place] [address] [place] Methemoglobin (Bld) [Mass fraction] 1.0 % Normal 0.0-1.5 [facility] Comment on above: Order Comment: Speci men Type: ARTERIAL BLOOD SPECIMENOrdering Facility: [facility] Address: [address] [place] [address] Performed By: #### A LLBG ####[facility] LABCLIA [id number] [place] [id number] [place] O2 THERAPY NC = Nasal Cannula Normal [facility] Comment on above: Order Comment: Speci men Type: ARTERIAL BLOOD SPECIMENOrdering Facility: [facility] Address: [address] [place] [address] Performed By: #### A LLBG ####[facility] LABCLIA [id number] [address] [address] [place] Oxygen (Bld) [Partial pressure] 110 mm Hg High 85-95 [facility] Comment on above: Order Comment: Speci men Type: ARTERIAL BLOOD SPECIMENOrdering Facility: [facility] Address: [address] [place], [place] [address] Performed By: #### A LLBG ####[facility] LABCLIA [id number] [address] [place] [address] [place] Oxygen adjusted to patient's actual temperature (Bld) [Partial pressure] 106 mmHg High 85-95 [facility] Comment on above: Order Comment: Speci men Type: ARTERIAL BLOOD SPECIMENOrdering Facility: [facility] Address: [address] [place] [address] Performed By: #### A LLBG ####[facility] LABCLIA [id number] [place] [id number] [place] Oxyhemoglobin (BldA) [Mass fraction] 96 % Normal 95-98 [facility] Comment on above: Order Comment: Speci men Type: ARTERIAL BLOOD SPECIMENOrdering Facility: [facility] Address: [address] [place] [address] Performed By: #### A LLBG ####[facility] LABCLIA [id number] [place] [id number] [place] pH (Bld) 7.33 [pH] Low 7.35-7.45 [facility] Comment on above: Order Comment: Speci men Type: ARTERIAL BLOOD SPECIMENOrdering Facility: [facility] Address: [address] [place] [address] Performed By: #### A LLBG ####[facility] LABCLIA [id number] [place] [id number] [place] pH adjusted to patient's actual temperature (Bld) 7.34 Low 7.35-7.45 [facility] Comment on above: Order Comment: Speci men Type: ARTERIAL BLOOD SPECIMENOrdering Facility: [facility] Address: [address] [place] [address] Performed By: #### A LLBG ####[facility] LABCLIA [id number] [address] [address] [place] Potassium [Moles/Vol] 4.3 mmol/L Normal 3.5-5.0 [facility] Comment on above: Order Comment: Speci men Type: ARTERIAL BLOOD SPECIMENOrdering Facility: [facility] Address: [address] [place] [address] Performed By: #### A LLBG ####[facility] LABCLIA [id number] [place] [address] [place] Sodium [Moles/Vol] 139 mmol/L Normal 136-144 [facility] Comment on above: Order Comment: Speci men Type: ARTERIAL BLOOD SPECIMENOrdering Facility: [facility] Address: [address] [place] [address] Performed By: #### A LLBG ####[facility] LABCLIA [id number] [place] [address] [place] Base deficit (BldA) [Moles/Vol] -7 mmol/L Low -2-0 [facility] Comment on above: Order Comment: Speci men Type: ARTERIAL BLOOD SPECIMENOrdering Facility: [facility] Address: [address] [place] [address] Performed By: #### A LLBG ####[facility] LABIA [id number] [place] [address] [place] Body temperature 97.52 [degF] Normal [facility] Comment on above: Order Comment: Speci men Type: ARTERIAL BLOOD SPECIMENOrdering Facility: [facility] Address: [address] [place] [address] Performed By: #### A LLBG ####[facility] LABCLIA [id number] [place] [address] [place] Calcium.ionized (Bld) [Mass/Vol] 1.17 mmol/L Normal 1.08-1.30 [facility] Comment on above: Order Comment: Speci men Type: ARTERIAL BLOOD SPECIMENOrdering Facility: [facility] Address: [address] [place] [address] Performed By: #### A LLBG ####[facility] LABCLIA [id number] [place] [address] [place] Calcium.ionized adjusted to pH 7.4 (BldA) [Moles/Vol] 1.13 mmol/L Normal 1.08-1.30 [facility] Comment on above: Order Comment: Speci men Type: ARTERIAL BLOOD SPECIMENOrdering Facility: [facility] Address: [address] [place] [address] Performed By: #### A LLBG ####[facility] LABCLIA [id number] [place] [address] [place] Carboxyhemoglobin (BldA) [Mass fraction] 1.6 % Normal 0.0-2.0 [facility] Comment on above: Order Comment: Speci men Type: ARTERIAL BLOOD SPECIMENOrdering Facility: [facility] Address: [address] [place] [address] Result Comment: Carb oxyhemoglobin Reference Range for Smokers: 2.0-8.0% Performed By: #### A LLBG ####[facility] LABCLIA [id number] [place] [address] [place] CO2 (Bld) [Partial pressure] 33 mm Hg Low 36-46 [facility] Comment on above: Order Comment: Speci men Type: ARTERIAL BLOOD SPECIMENOrdering Facility: [facility] Address: [address] [place] [address] Performed By: #### A LLBG ####[facility] LABCLIA [id number] [place] [address] [place] CO2 adjusted to patient's actual temperature (Bld) [Partial pressure] 32 mmHg Low 36-46 [facility] Comment on above: Order Comment: Speci men Type: ARTERIAL BLOOD SPECIMENOrdering Facility: [facility] Address: [address] [place] [address] Performed By: #### A LLBG ####[facility] LABCLIA [id number] [place] [address] [place] Glucose [Mass/Vol] 206 mg/dL High 60-105 [facility] Comment on above: Order Comment: Speci men Type: ARTERIAL BLOOD SPECIMENOrdering Facility: [facility] Address: [address] [place] [address] Performed By: #### A LLBG ####[facility] LABCLIA [id number] [address] [address] [place] HCO3 (Bld) [Moles/Vol] 17 mmol/L Low 22-26 [facility] Comment on above: Order Comment: Speci men Type: ARTERIAL BLOOD SPECIMENOrdering Facility: [facility] Address: [address] [place] [address] Performed By: #### A LLBG ####[facility] LABCLIA [id number] [place] [address] [place] Hematocrit (Bld) [Volume fraction] 27.6 % Low 36.0-46.0 [facility] Comment on above: Order Comment: Speci men Type: ARTERIAL BLOOD SPECIMENOrdering Facility: [facility] Address: [address] [place] [address] Performed By: #### A LLBG ####[facility] LABCLIA [id number] [place] [address] [place] Hemoglobin (Bld) [Mass/Vol] 8.9 g/dL Low 11.5-15.5 [facility] Comment on above: Order Comment: Speci men Type: ARTERIAL BLOOD SPECIMENOrdering Facility: [facility] Address: [address] [place] [address] Performed By: #### A LLBG ####[facility] LABCLIA [id number] [place] [address] [place] Lactate [Moles/Vol] 5.8 mmol/L High 0.5-2.2 [facility] Comment on above: Order Comment: Speci men Type: ARTERIAL BLOOD SPECIMENOrdering Facility: [facility] Address: [address], [place] [address] Performed By: #### A LLBG ####[facility] LABCLIA [id number] [address] [place] [address] [place] LITERS 2 Liters/min Normal [facility] Comment on above: Order Comment: Speci men Type: ARTERIAL BLOOD SPECIMENOrdering Facility: [facility] Address: [address] [place] [address] Performed By: #### A LLBG ####[facility] LABCLIA [id number] [address] [place] [address] [place] Methemoglobin (Bld) [Mass fraction] 0.7 % Normal 0.0-1.5 [facility] Comment on above: Order Comment: Speci men Type: ARTERIAL BLOOD SPECIMENOrdering Facility: [facility] Address: [address] [place], [place] [address] Performed By: #### A LLBG ####[facility] LABCLIA [id number] [address] [address] [place] O2 THERAPY NC = Nasal Cannula Normal [facility] Comment on above: Order Comment: Speci men Type: ARTERIAL BLOOD SPECIMENOrdering Facility: [facility] Address: [address] [place], [place] [address] Performed By: #### A LLBG ####[facility] LABCLIA [id number] [address] [place] [address] [place] Oxygen (Bld) [Partial pressure] 127 mm Hg High 85-95 [facility] Comment on above: Order Comment: Speci men Type: ARTERIAL BLOOD SPECIMENOrdering Facility: [facility] Address: [address] [place] [address] Performed By: #### A LLBG ####[facility] LABCLIA [id number] [address] [place] [address] [place] Oxygen adjusted to patient's actual temperature (Bld) [Partial pressure] 124 mmHg High 85-95 [facility] Comment on above: Order Comment: Speci men Type: ARTERIAL BLOOD SPECIMENOrdering Facility: [facility] Address: [address] [place] [address] Performed By: #### A LLBG ####[facility] LABCLIA [id number] [place] [address] [place] Oxyhemoglobin (BldA) [Mass fraction] 97 % Normal 95-98 [facility] Comment on above: Order Comment: Speci men Type: ARTERIAL BLOOD SPECIMENOrdering Facility: [facility] Address: [address] [place] [address] Performed By: #### A LLBG ####[facility] LABCLIA [id number] [place] [address] [place] pH (Bld) 7.33 [pH] Low 7.35-7.45 [facility] Comment on above: Order Comment: Speci men Type: ARTERIAL BLOOD SPECIMENOrdering Facility: [facility] Address: [address] [place] [address] Performed By: #### A LLBG ####[facility] LABCLIA [id number] [place] [address] [place] pH adjusted to patient's actual temperature (Bld) 7.34 Low 7.35-7.45 [facility] Comment on above: Order Comment: Speci men Type: ARTERIAL BLOOD SPECIMENOrdering Facility: [facility] Address: [address] [place] [address] Performed By: #### A LLBG ####[facility] LABCLIA [id number] [place] [address] [place] Potassium [Moles/Vol] 4.1 mmol/L Normal 3.5-5.0 [facility] Comment on above: Order Comment: Speci men Type: ARTERIAL BLOOD SPECIMENOrdering Facility: [facility] Address: [address] [place] [address] Performed By: #### A LLBG ####[facility] LABCLIA [id number] [place] [address] [place] Sodium [Moles/Vol] 140 mmol/L Normal 136-144 [facility] Comment on above: Order Comment: Speci men Type: ARTERIAL BLOOD SPECIMENOrdering Facility: [facility] Address: [address] [place] [address] Performed By: #### A LLBG ####[facility] LABIA [id number] [place] [address] [place] ARTERIAL BLOOD GASES WITH IO NIZED MAGNESIUMon 12-12-2024 Base deficit (BldA) [Moles/Vol] -4 mmol/L Low -2-0 [facility] Comment on above: Order Comment: Speci men Type: ARTERIAL BLOOD SPECIMENOrdering Facility: [facility] Address: [address] [place] [address] Performed By: #### A LLMG ####[facility] [id number] [place] [address] [place] Calcium.ionized (Bld) [Mass/Vol] 1.14 mmol/L Normal 1.08-1.30 [facility] Comment on above: Order Comment: Speci men Type: ARTERIAL BLOOD SPECIMENOrdering Facility: [facility] Address: [address] [place] [address] Performed By: #### A LLMG ####[facility] LABIA [id number] [place] [address] [place] Calcium.ionized adjusted to pH 7.4 (BldA) [Moles/Vol] 1.12 mmol/L Normal 1.08-1.30 [facility] Comment on above: Order Comment: Speci men Type: ARTERIAL BLOOD SPECIMENOrdering Facility: [facility] Address: [address] [place] [address] Performed By: #### A LLMG ####[facility] LABIA [id number] [place] [address] [place] Carboxyhemoglobin (BldA) [Mass fraction] 2.0 % Normal 0.0-2.0 [facility] Comment on above: Order Comment: Speci men Type: ARTERIAL BLOOD SPECIMENOrdering Facility: [facility] Address: [address] [place] [address] Result Comment: Carb oxyhemoglobin Reference Range for Smokers: 2.0-8.0% Performed By: #### A LLMG ####[facility] LABCLIA [id number] [place] [address] [place] CO2 (Bld) [Partial pressure] 37 mm Hg Normal 36-46 [facility] Comment on above: Order Comment: Speci men Type: ARTERIAL BLOOD SPECIMENOrdering Facility: [facility] Address: [address] [place] [address] Performed By: #### A LLMG ####[facility] LABCLIA [id number] [place] [address] [place] CO2 adjusted to patient's actual temperature (Bld) [Partial pressure] 37 mmHg Normal 36-46 [facility] Comment on above: Order Comment: Speci men Type: ARTERIAL BLOOD SPECIMENOrdering Facility: [facility] Address: [address] [place] [address] Performed By: #### A LLMG ####[facility] LABCLIA [id number] [place] [address] [place] Glucose [Mass/Vol] 148 mg/dL High 60-105 [facility] Comment on above: Order Comment: Speci men Type: ARTERIAL BLOOD SPECIMENOrdering Facility: [facility] Address: [address] [place] [address] Performed By: #### A LLMG ####[facility] LABCLIA [id number] [place] [address] [place] HCO3 (Bld) [Moles/Vol] 20 mmol/L Low 22-26 [facility] Comment on above: Order Comment: Speci men Type: ARTERIAL BLOOD SPECIMENOrdering Facility: [facility] Address: [address] [place] [address] Performed By: #### A LLMG ####[facility] LABIA [id number] [place] [address] [place] Hematocrit (Bld) [Volume fraction] 24.9 % Low 36.0-46.0 [facility] Comment on above: Order Comment: Speci men Type: ARTERIAL BLOOD SPECIMENOrdering Facility: [facility] Address: [address] [place] [address] Performed By: #### A LLMG ####[facility] LABIA [id number] [place] [address] [place] Hemoglobin (Bld) [Mass/Vol] 8.0 g/dL Low 11.5-15.5 [facility] Comment on above: Order Comment: Speci men Type: ARTERIAL BLOOD SPECIMENOrdering Facility: [facility] Address: [address] [place] [address] Performed By: #### A LLMG ####[facility] LABIA [id number] [place] [address] [place] Lactate [Moles/Vol] 3.0 mmol/L High 0.5-2.2 [facility] Comment on above: Order Comment: Speci men Type: ARTERIAL BLOOD SPECIMENOrdering Facility: [facility] Address: [address] [place] [address] Performed By: #### A LLMG ####[facility] LABCLIA [id number] [place] [address] [place] Magnesium [Moles/Vol] 0.55 mmol/L Normal 0.45-0.60 [facility] Comment on above: Order Comment: Speci men Type: ARTERIAL BLOOD SPECIMENOrdering Facility: [facility] Address: [address] [place] [address] Performed By: #### A LLMG ####[facility] LABCLIA [id number] [address] [place] [address] [place] Methemoglobin (Bld) [Mass fraction] 1.2 % Normal 0.0-1.5 [facility] Comment on above: Order Comment: Speci men Type: ARTERIAL BLOOD SPECIMENOrdering Facility: [facility] Address: [address] [place] [address] Performed By: #### A LLMG ####[facility] LABCLIA [id number] [address] [place] [address] [place] Oxygen (Bld) [Partial pressure] 144 mm Hg High 85-95 [facility] Comment on above: Order Comment: Speci men Type: ARTERIAL BLOOD SPECIMENOrdering Facility: [facility] Address: [address] [place] [address] Performed By: #### A LLMG ####[facility] LABCLIA [id number] [place] [id number] [place] Oxygen adjusted to patient's actual temperature (Bld) [Partial pressure] 144 mmHg High 85-95 [facility] Comment on above: Order Comment: Speci men Type: ARTERIAL BLOOD SPECIMENOrdering Facility: [facility] Address: [address] [place] [address] Performed By: #### A LLMG ####[facility] LABCLIA [id number] [place] [id number] [place] Oxyhemoglobin (BldA) [Mass fraction] 96 % Normal 95-98 [facility] Comment on above: Order Comment: Speci men Type: ARTERIAL BLOOD SPECIMENOrdering Facility: [facility] Address: [address] [place] [address] Performed By: #### A LLMG ####[facility] LABCLIA [id number] [address] [address] [place] pH (Bld) 7.36 [pH] Normal 7.35-7.45 [facility] Comment on above: Order Comment: Speci men Type: ARTERIAL BLOOD SPECIMENOrdering Facility: [facility] Address: [address] [place] [address] Performed By: #### A LLMG ####[facility] LABCLIA [id number] [place] [address] [place] pH adjusted to patient's actual temperature (Bld) 7.36 Normal 7.35-7.45 [facility] Comment on above: Order Comment: Speci men Type: ARTERIAL BLOOD SPECIMENOrdering Facility: [facility] Address: [address] [place] [address] Performed By: #### A LLMG ####[facility] LABCLIA [id number] [place] [address] [place] Potassium [Moles/Vol] 4.3 mmol/L Normal 3.5-5.0 [facility] Comment on above: Order Comment: Speci men Type: ARTERIAL BLOOD SPECIMENOrdering Facility: [facility] Address: [address] [place] [address] Performed By: #### A LLMG ####[facility] LABCLIA [id number] [place] [address] [place] Sodium [Moles/Vol] 140 mmol/L Normal 136-144 [facility] Comment on above: Order Comment: Speci men Type: ARTERIAL BLOOD SPECIMENOrdering Facility: [facility] Address: [address] [place] [address] Performed By: #### A LLMG ####[facility] LABCLIA [id number] [place] [address] [place] Base deficit (BldA) [Moles/Vol] -4 mmol/L Low -2-0 [facility] Comment on above: Order Comment: Speci men Type: ARTERIAL BLOOD SPECIMENOrdering Facility: [facility] Address: [address] [place] [address] Performed By: #### A LLMG ####[facility] LABCLIA [id number] [place] [address] [place] Calcium.ionized (Bld) [Mass/Vol] 1.12 mmol/L Normal 1.08-1.30 [facility] Comment on above: Order Comment: Speci men Type: ARTERIAL BLOOD SPECIMENOrdering Facility: [facility] Address: [address] [place] [address] Performed By: #### A LLMG ####[facility] LABCLIA [id number] [place] [address] [place] Calcium.ionized adjusted to pH 7.4 (BldA) [Moles/Vol] 1.10 mmol/L Normal 1.08-1.30 [facility] Comment on above: Order Comment: Speci men Type: ARTERIAL BLOOD SPECIMENOrdering Facility: [facility] Address: [address] [place] [address] Performed By: #### A LLMG ####[facility] LABCLIA [id number] [place] [address] [place] Carboxyhemoglobin (BldA) [Mass fraction] 2.0 % Normal 0.0-2.0 [facility] Comment on above: Order Comment: Speci men Type: ARTERIAL BLOOD SPECIMENOrdering Facility: [facility] Address: [address] [place] [address] Result Comment: Carb oxyhemoglobin Reference Range for Smokers: 2.0-8.0% Performed By: #### A LLMG ####[facility] LABCLIA [id number] [place] [address] [place] CO2 (Bld) [Partial pressure] 37 mm Hg Normal 36-46 [facility] Comment on above: Order Comment: Speci men Type: ARTERIAL BLOOD SPECIMENOrdering Facility: [facility] Address: [address] [place] [address] Performed By: #### A LLMG ####[facility] LABCLIA [id number] [place] [address] [place] CO2 adjusted to patient's actual temperature (Bld) [Partial pressure] 37 mmHg Normal 36-46 [facility] Comment on above: Order Comment: Speci men Type: ARTERIAL BLOOD SPECIMENOrdering Facility: [facility] Address: [address] [place] [address] Performed By: #### A LLMG ####[facility] LABCLIA [id number] [place] [id number] [place] Glucose [Mass/Vol] 145 mg/dL High 60-105 [facility] Comment on above: Order Comment: Speci men Type: ARTERIAL BLOOD SPECIMENOrdering Facility: [facility] Address: [address] [place] [address] Performed By: #### A LLMG ####[facility] LABCLIA [id number] [place] [id number] [place] HCO3 (Bld) [Moles/Vol] 21 mmol/L Low 22-26 [facility] Comment on above: Order Comment: Speci men Type: ARTERIAL BLOOD SPECIMENOrdering Facility: [facility] Address: [address] [place] [address] Performed By: #### A LLMG ####[facility] LABCLIA [id number] [place] [id number] [place] Hematocrit (Bld) [Volume fraction] 24.5 % Low 36.0-46.0 [facility] Comment on above: Order Comment: Speci men Type: ARTERIAL BLOOD SPECIMENOrdering Facility: [facility] Address: [address] [place] [address] Performed By: #### A LLMG ####[facility] LABCLIA [id number] [place] [id number] [place] Hemoglobin (Bld) [Mass/Vol] 7.9 g/dL Low 11.5-15.5 [facility] Comment on above: Order Comment: Speci men Type: ARTERIAL BLOOD SPECIMENOrdering Facility: [facility] Address: [address] [place] [address] Performed By: #### A LLMG ####[facility] LABCLIA [id number] [place] [address] [place] Lactate [Moles/Vol] 3.0 mmol/L High 0.5-2.2 [facility] Comment on above: Order Comment: Speci men Type: ARTERIAL BLOOD SPECIMENOrdering Facility: [facility] Address: [address] [place] [address] Performed By: #### A LLMG ####[facility] LABIA [id number] [place] [address] [place] Magnesium [Moles/Vol] 0.55 mmol/L Normal 0.45-0.60 [facility] Comment on above: Order Comment: Speci men Type: ARTERIAL BLOOD SPECIMENOrdering Facility: [facility] Address: [address] [place] [address] Performed By: #### A LLMG ####[facility] LABIA [id number] [place] [address] [place] Methemoglobin (Bld) [Mass fraction] 0.7 % Normal 0.0-1.5 [facility] Comment on above: Order Comment: Speci men Type: ARTERIAL BLOOD SPECIMENOrdering Facility: [facility] Address: [address] [place] [address] Performed By: #### A LLMG ####[facility] LABIA [id number] [place] [id number] [place] Oxygen (Bld) [Partial pressure] 183 mm Hg High 85-95 [facility] Comment on above: Order Comment: Speci men Type: ARTERIAL BLOOD SPECIMENOrdering Facility: [facility] Address: [address] [place] [address] Performed By: #### A LLMG ####[facility] LABIA [id number] [place] [id number] [place] Oxygen adjusted to patient's actual temperature (Bld) [Partial pressure] 183 mmHg High 85-95 [facility] Comment on above: Order Comment: Speci men Type: ARTERIAL BLOOD SPECIMENOrdering Facility: [facility] Address: [address] [place] [address] Performed By: #### A LLMG ####[facility] LABCLIA [id number] [place] [address] [place] Oxyhemoglobin (BldA) [Mass fraction] 97 % Normal 95-98 [facility] Comment on above: Order Comment: Speci men Type: ARTERIAL BLOOD SPECIMENOrdering Facility: [facility] Address: [address] [place] [address] Performed By: #### A LLMG ####[facility] LABCLIA [id number] [place] [id number] [place] pH (Bld) 7.36 [pH] Normal 7.35-7.45 [facility] Comment on above: Order Comment: Speci men Type: ARTERIAL BLOOD SPECIMENOrdering Facility: [facility] Address: [address] [place] [address] Performed By: #### A LLMG ####[facility] LABCLIA [id number] [address] [place] pH adjusted to patient's actual temperature (Bld) 7.36 Normal 7.35-7.45 [facility] Comment on above: Order Comment: Speci men Type: ARTERIAL BLOOD SPECIMENOrdering Facility: [facility] Address: [address] [place] [address] Performed By: #### A LLMG ####[facility] LABCLIA [id number] [place] [id number] [place] Potassium [Moles/Vol] 4.3 mmol/L Normal 3.5-5.0 [facility] Comment on above: Order Comment: Speci men Type: ARTERIAL BLOOD SPECIMENOrdering Facility: [facility] Address: [address] [place] [address] Performed By: #### A LLMG ####[facility] LABIA [id number] [place] [address] [place] Sodium [Moles/Vol] 139 mmol/L Normal 136-144 [facility] Comment on above: Order Comment: Speci men Type: ARTERIAL BLOOD SPECIMENOrdering Facility: [facility] Address: [address] [place] [address] Performed By: #### A LLMG ####[facility] LABIA [id number] [place] [address] [place] Base deficit (BldA) [Moles/Vol] -5 mmol/L Low -2-0 [facility] Comment on above: Order Comment: Speci men Type: ARTERIAL BLOOD SPECIMENOrdering Facility: [facility] Address: [address] [place] [address] Performed By: #### A LLMG ####[facility] [id number] [place] [address] [place] Calcium.ionized (Bld) [Mass/Vol] 1.20 mmol/L Normal 1.08-1.30 [facility] Comment on above: Order Comment: Speci men Type: ARTERIAL BLOOD SPECIMENOrdering Facility: [facility] Address: [address] [place] [address] Performed By: #### A LLMG ####[facility] LABIA [id number] [place] [address] [place] Calcium.ionized adjusted to pH 7.4 (BldA) [Moles/Vol] 1.17 mmol/L Normal 1.08-1.30 [facility] Comment on above: Order Comment: Speci men Type: ARTERIAL BLOOD SPECIMENOrdering Facility: [facility] Address: [address] [place] [address] Performed By: #### A LLMG ####[facility] LABIA [id number] [address] [address] [place] Carboxyhemoglobin (BldA) [Mass fraction] 2.1 % High 0.0-2.0 [facility] Comment on above: Order Comment: Speci men Type: ARTERIAL BLOOD SPECIMENOrdering Facility: [facility] Address: [address] [place] [address] Result Comment: Carb oxyhemoglobin Reference Range for Smokers: 2.0-8.0% Performed By: #### A LLMG ####[facility] LABCLIA [id number] [place] [address] [place] CO2 (Bld) [Partial pressure] 37 mm Hg Normal 36-46 [facility] Comment on above: Order Comment: Speci men Type: ARTERIAL BLOOD SPECIMENOrdering Facility: [facility] Address: [address] [place] [address] Performed By: #### A LLMG ####[facility] LABCLIA [id number] [address] [place] CO2 adjusted to patient's actual temperature (Bld) [Partial pressure] 37 mmHg Normal 36-46 [facility] Comment on above: Order Comment: Speci men Type: ARTERIAL BLOOD SPECIMENOrdering Facility: [facility] Address: [address] [place] [address] Performed By: #### A LLMG ####[facility] LABIA [id number] [place] [id number] [place] Glucose [Mass/Vol] 149 mg/dL High 60-105 [facility] [facility] Comment on above: Order Comment: Speci men Type: ARTERIAL BLOOD SPECIMENOrdering Facility: [facility] Address: [address] [place] [address] Performed By: #### A LLMG ####[facility] LABCLIA [id number] [place] [id number] [place] HCO3 (Bld) [Moles/Vol] 19 mmol/L Low 22-26 [facility] Comment on above: Order Comment: Speci men Type: ARTERIAL BLOOD SPECIMENOrdering Facility: [facility] Address: [address] [place] [address] Performed By: #### A LLMG ####[facility] LABIA [id number] [place] [address] [place] Hematocrit (Bld) [Volume fraction] 27.8 % Low 36.0-46.0 [facility] Comment on above: Order Comment: Speci men Type: ARTERIAL BLOOD SPECIMENOrdering Facility: [facility] Address: [address] [place] [address] Performed By: #### A LLMG ####[facility] [id number] [place] [address] [place] Hemoglobin (Bld) [Mass/Vol] 9.0 g/dL Low 11.5-15.5 [facility] Comment on above: Order Comment: Speci men Type: ARTERIAL BLOOD SPECIMENOrdering Facility: [facility] Address: [address] [place] [address] Performed By: #### A LLMG ####[facility] LABIA [id number] [place] [address] [place] Lactate [Moles/Vol] 3.3 mmol/L High 0.5-2.2 [facility] Comment on above: Order Comment: Speci men Type: ARTERIAL BLOOD SPECIMENOrdering Facility: [facility] Address: [address] [place] [address] Performed By: #### A LLMG ####[facility] LABIA [id number] [place] [address] [place] Magnesium [Moles/Vol] 0.63 mmol/L High 0.45-0.60 [facility] Comment on above: Order Comment: Speci men Type: ARTERIAL BLOOD SPECIMENOrdering Facility: [facility] Address: [address] [place] [address] Performed By: #### A LLMG ####[facility] LABCLIA [id number] [address] [address] [place] Methemoglobin (Bld) [Mass fraction] 0.4 % Normal 0.0-1.5 [facility] Comment on above: Order Comment: Speci men Type: ARTERIAL BLOOD SPECIMENOrdering Facility: [facility] Address: [address] [place] [address] Performed By: #### A LLMG ####[facility] LABCLIA [id number] [address] [address] [place] Oxygen (Bld) [Partial pressure] 185 mm Hg High 85-95 [facility] Comment on above: Order Comment: Speci men Type: ARTERIAL BLOOD SPECIMENOrdering Facility: [facility] Address: [address] [place] [address] Performed By: #### A LLMG ####[facility] LABCLIA [id number] [place] [id number] [place] Oxygen adjusted to patient's actual temperature (Bld) [Partial pressure] 185 mmHg High 85-95 [facility] Comment on above: Order Comment: Speci men Type: ARTERIAL BLOOD SPECIMENOrdering Facility: [facility] Address: [address] [place] [address] Performed By: #### A LLMG ####[facility] LABIA [id number] [place] [address] [place] Oxyhemoglobin (BldA) [Mass fraction] 97 % Normal 95-98 [facility] Comment on above: Order Comment: Speci men Type: ARTERIAL BLOOD SPECIMENOrdering Facility: [facility] Address: [address] [place] [address] Performed By: #### A LLMG ####[facility] LABCLIA [id number] [address] [address] [place] pH (Bld) 7.35 [pH] Normal 7.35-7.45 [facility] Comment on above: Order Comment: Speci men Type: ARTERIAL BLOOD SPECIMENOrdering Facility: [facility] Address: [address] [place] [address] Performed By: #### A LLMG ####[facility] LABCLIA [id number] [place] [address] [place] pH adjusted to patient's actual temperature (Bld) 7.35 Normal 7.35-7.45 [facility] Comment on above: Order Comment: Speci men Type: ARTERIAL BLOOD SPECIMENOrdering Facility: [facility] Address: [address] [place] [address] Performed By: #### A LLMG ####[facility] LABIA [id number] [place] [address] [place] Potassium [Moles/Vol] 4.7 mmol/L Normal 3.5-5.0 [facility] Comment on above: Order Comment: Speci men Type: ARTERIAL BLOOD SPECIMENOrdering Facility: [facility] Address: [address] [place] [address] Performed By: #### A LLMG ####[facility] LABIA [id number] [place] [address] [place] Sodium [Moles/Vol] 138 mmol/L Normal 136-144 [facility] Comment on above: Order Comment: Speci men Type: ARTERIAL BLOOD SPECIMENOrdering Facility: [facility] Address: [address] [place] [address] Performed By: #### A LLMG ####[facility] LABCLIA [id number] [place] [address] [place] Base deficit (BldA) [Moles/Vol] -4 mmol/L Low -2-0 [facility] Comment on above: Order Comment: Speci men Type: ARTERIAL BLOOD SPECIMENOrdering Facility: [facility] Address: [address] [place] [address] Performed By: #### A LLMG ####[facility] LABCLIA [id number] [place] [address] [place] Calcium.ionized (Bld) [Mass/Vol] 1.23 mmol/L Normal 1.08-1.30 [facility] Comment on above: Order Comment: Speci men Type: ARTERIAL BLOOD SPECIMENOrdering Facility: [facility] Address: [address] [place] [address] Performed By: #### A LLMG ####[facility] LABIA [id number] [place] [address] [place] Calcium.ionized adjusted to pH 7.4 (BldA) [Moles/Vol] 1.20 mmol/L Normal 1.08-1.30 [facility] Comment on above: Order Comment: Speci men Type: ARTERIAL BLOOD SPECIMENOrdering Facility: [facility] Address: [address] [place] [address] Performed By: #### A LLMG ####[facility] LABIA [id number] [place] [address] [place] Carboxyhemoglobin (BldA) [Mass fraction] 2.1 % High 0.0-2.0 [facility] Comment on above: Order Comment: Speci men Type: ARTERIAL BLOOD SPECIMENOrdering Facility: [facility] Address: [address] [place] [address] Result Comment: Carb oxyhemoglobin Reference Range for Smokers: 2.0-8.0% Performed By: #### A LLMG ####[facility] LABIA [id number] [place] [address] [place] CO2 (Bld) [Partial pressure] 37 mm Hg Normal 36-46 [facility] Comment on above: Order Comment: Speci men Type: ARTERIAL BLOOD SPECIMENOrdering Facility: [facility] Address: [address] [place] [address] Performed By: #### A LLMG ####[facility] LABIA [id number] [address] [place] [address] [place] CO2 adjusted to patient's actual temperature (Bld) [Partial pressure] 37 mmHg Normal 36-46 [facility] Comment on above: Order Comment: Speci men Type: ARTERIAL BLOOD SPECIMENOrdering Facility: [facility] Address: [address] [place] [address] Performed By: #### A LLMG ####[facility] LABCLIA [id number] [address] [place] [address] [place] Glucose [Mass/Vol] 154 mg/dL High 60-105 [facility] Comment on above: Order Comment: Speci men Type: ARTERIAL BLOOD SPECIMENOrdering Facility: [facility] Address: [address] [place] [address] Performed By: #### A LLMG ####[facility] LABCLIA [id number] [place] [id number] [place] HCO3 (Bld) [Moles/Vol] 20 mmol/L Low 22-26 [facility] Comment on above: Order Comment: Speci men Type: ARTERIAL BLOOD SPECIMENOrdering Facility: [facility] Address: [address] [place] [address] Performed By: #### A LLMG ####[facility] LABCLIA [id number] [address], [facility]95 [place] Hematocrit (Bld) [Volume fraction] 29.2 % Low 36.0-46.0 [facility] Comment on above: Order Comment: Speci men Type: ARTERIAL BLOOD SPECIMENOrdering Facility: [facility] Address: [address] [place] [address] Performed By: #### A LLMG ####[facility] LABCLIA [id number] [address] [place] [address] [place] Hemoglobin (Bld) [Mass/Vol] 9.4 g/dL Low 11.5-15.5 [facility] Comment on above: Order Comment: Speci men Type: ARTERIAL BLOOD SPECIMENOrdering Facility: [facility] Address: [address] [place] [address] Performed By: #### A LLMG ####[facility] LABCLIA [id number] [place] [address] [place] Lactate [Moles/Vol] 2.2 mmol/L Normal 0.5-2.2 [facility] Comment on above: Order Comment: Speci men Type: ARTERIAL BLOOD SPECIMENOrdering Facility: [facility] Address: [address] [place] [address] Performed By: #### A LLMG ####[facility] LABIA [id number] [place] [address] [place] Magnesium [Moles/Vol] 0.67 mmol/L High 0.45-0.60 [facility] Comment on above: Order Comment: Speci men Type: ARTERIAL BLOOD SPECIMENOrdering Facility: [facility] Address: [address] [place] [address] Performed By: #### A LLMG ####[facility] LABIA [id number] [place] [address] [place] Methemoglobin (Bld) [Mass fraction] 0.4 % Normal 0.0-1.5 [facility] Comment on above: Order Comment: Speci men Type: ARTERIAL BLOOD SPECIMENOrdering Facility: [facility] Address: [address] [place] [address] Performed By: #### A LLMG ####[facility] LABIA [id number] [place] [id number] [place] Oxygen (Bld) [Partial pressure] 209 mm Hg High 85-95 [facility] Comment on above: Order Comment: Speci men Type: ARTERIAL BLOOD SPECIMENOrdering Facility: [facility] Address: [address] [place] [address] Performed By: #### A LLMG ####[facility] LABCLIA [id number] [place] [id number] [place] Oxygen adjusted to patient's actual temperature (Bld) [Partial pressure] 209 mmHg High 85-95 [facility] Comment on above: Order Comment: Speci men Type: ARTERIAL BLOOD SPECIMENOrdering Facility: [facility] Address: [address] [place] [address] Performed By: #### A LLMG ####[facility] LABCLIA [id number] [place] [address] [place] Oxyhemoglobin (BldA) [Mass fraction] 98 % Normal 95-98 [facility] Comment on above: Order Comment: Speci men Type: ARTERIAL BLOOD SPECIMENOrdering Facility: [facility] Address: [address] [place] [address] Performed By: #### A LLMG ####[facility] LABCLIA [id number] [place] [address] [place] pH (Bld) 7.35 [pH] Normal 7.35-7.45 [facility] Comment on above: Order Comment: Speci men Type: ARTERIAL BLOOD SPECIMENOrdering Facility: [facility] Address: [address] [place] [address] Performed By: #### A LLMG ####[facility] LABCLIA [id number] [place] [address] [place] pH adjusted to patient's actual temperature (Bld) 7.35 Normal 7.35-7.45 [facility] Comment on above: Order Comment: Speci men Type: ARTERIAL BLOOD SPECIMENOrdering Facility: [facility] Address: [address] [place] [address] Performed By: #### A LLMG ####[facility] LABCLIA [id number] [place] [id number] [place] Potassium [Moles/Vol] 4.7 mmol/L Normal 3.5-5.0 [facility] Comment on above: Order Comment: Speci men Type: ARTERIAL BLOOD SPECIMENOrdering Facility: [facility] Address: [address] [place] [address] Performed By: #### A LLMG ####[facility] LABIA [id number] [place] [address] [place] Sodium [Moles/Vol] 136 mmol/L Normal 136-144 [facility] Comment on above: Order Comment: Speci men Type: ARTERIAL BLOOD SPECIMENOrdering Facility: [facility] Address: [address] [place] [address] Performed By: #### A LLMG ####[facility] LABIA [id number] [place] [address] [place] Base deficit (BldA) [Moles/Vol] -4 mmol/L Low -2-0 [facility] Comment on above: Order Comment: Speci men Type: ARTERIAL BLOOD SPECIMENOrdering Facility: [facility] Address: [address] [place] [address] Performed By: #### A LLMG ####[facility] LABIA [id number] [place] [address] [place] Calcium.ionized (Bld) [Mass/Vol] 1.28 mmol/L Normal 1.08-1.30 [facility] Comment on above: Order Comment: Speci men Type: ARTERIAL BLOOD SPECIMENOrdering Facility: [facility] Address: [address] [place] [address] Performed By: #### A LLMG ####[facility] LABIA [id number] [place] [address] [place] Calcium.ionized adjusted to pH 7.4 (BldA) [Moles/Vol] 1.22 mmol/L Normal 1.08-1.30 [facility] Comment on above: Order Comment: Speci men Type: ARTERIAL BLOOD SPECIMENOrdering Facility: [facility] Address: [address] [place] [address] Performed By: #### A LLMG ####[facility] LABCLIA [id number] [address] [address] [place] Carboxyhemoglobin (BldA) [Mass fraction] 1.9 % Normal 0.0-2.0 [facility] Comment on above: Order Comment: Speci men Type: ARTERIAL BLOOD SPECIMENOrdering Facility: [facility] Address: [address] [place] [address] Result Comment: Carb oxyhemoglobin Reference Range for Smokers: 2.0-8.0% Performed By: #### A LLMG ####[facility] LABCLIA [id number] [address] [place] CO2 (Bld) [Partial pressure] 43 mm Hg Normal 36-46 [facility] Comment on above: Order Comment: Speci men Type: ARTERIAL BLOOD SPECIMENOrdering Facility: [facility] Address: [address] [place] [address] Performed By: #### A LLMG ####[facility] LABCLIA [id number] [address] [place] CO2 adjusted to patient's actual temperature (Bld) [Partial pressure] 43 mmHg Normal 36-46 [facility] Comment on above: Order Comment: Speci men Type: ARTERIAL BLOOD SPECIMENOrdering Facility: [facility] Address: [address] [place] [address] Performed By: #### A LLMG ####[facility] LABCLIA [id number] [address] [address] [place] Glucose [Mass/Vol] 109 mg/dL High 60-105 [facility] Comment on above: Order Comment: Speci men Type: ARTERIAL BLOOD SPECIMENOrdering Facility: [facility] Address: [address] [place] [address] Performed By: #### A LLMG ####[facility] LABCLIA [id number] [place] [id number] [place] HCO3 (Bld) [Moles/Vol] 22 mmol/L Normal 22-26 [facility] Comment on above: Order Comment: Speci men Type: ARTERIAL BLOOD SPECIMENOrdering Facility: [facility] Address: [address] [place] [address] Performed By: #### A LLMG ####[facility] LABIA [id number] [place] [address] [place] Hematocrit (Bld) [Volume fraction] 27.5 % Low 36.0-46.0 [facility] Comment on above: Order Comment: Speci men Type: ARTERIAL BLOOD SPECIMENOrdering Facility: [facility] Address: [address] [place] [address] Performed By: #### A LLMG ####[facility] LABIA [id number] [place] [address] [place] Hemoglobin (Bld) [Mass/Vol] 8.9 g/dL Low 11.5-15.5 [facility] Comment on above: Order Comment: Speci men Type: ARTERIAL BLOOD SPECIMENOrdering Facility: [facility] Address: [address] [place] [address] Performed By: #### A LLMG ####[facility] LABIA [id number] [place] [address] [place] Lactate [Moles/Vol] 1.5 mmol/L Normal 0.5-2.2 [facility] Comment on above: Order Comment: Speci men Type: ARTERIAL BLOOD SPECIMENOrdering Facility: [facility] Address: [address] [place] [address] Performed By: #### A LLMG ####[facility] LABIA [id number] [place] [address] [place] Magnesium [Moles/Vol] 0.67 mmol/L High 0.45-0.60 [facility] Comment on above: Order Comment: Speci men Type: ARTERIAL BLOOD SPECIMENOrdering Facility: [facility] Address: [address] [id number] Performed By: #### A LLMG ####[facility] LABCLIA [id number] [address] [place] [address] [place] Methemoglobin (Bld) [Mass fraction] 1.3 % Normal 0.0-1.5 [facility] Comment on above: Order Comment: Speci men Type: ARTERIAL BLOOD SPECIMENOrdering Facility: [facility] Address: [address] [place] [address] Performed By: #### A LLMG ####[facility] LABCLIA [id number] [address] [place] [address] [place] Oxygen (Bld) [Partial pressure] 178 mm Hg High 85-95 [facility] Comment on above: Order Comment: Speci men Type: ARTERIAL BLOOD SPECIMENOrdering Facility: [facility] Address: [address] [place] [address] Performed By: #### A LLMG ####[facility] LABCLIA [id number] [address] [place] [address] [place] Oxygen adjusted to patient's actual temperature (Bld) [Partial pressure] 178 mmHg High 85-95 [facility] Comment on above: Order Comment: Speci men Type: ARTERIAL BLOOD SPECIMENOrdering Facility: [facility] Address: [address] [place], [place] [address] Performed By: #### A LLMG ####[facility] LABCLIA [id number] [address] [place] [address] [place] Oxyhemoglobin (BldA) [Mass fraction] 96 % Normal 95-98 [facility] Comment on above: Order Comment: Speci men Type: ARTERIAL BLOOD SPECIMENOrdering Facility: [facility] Address: [address] [place], [place] [address] Performed By: #### A LLMG ####[facility] LABCLIA [id number] [address] [place] [address] [place] pH (Bld) 7.32 [pH] Low 7.35-7.45 [facility] Comment on above: Order Comment: Speci men Type: ARTERIAL BLOOD SPECIMENOrdering Facility: [facility] Address: [address] [place] [address] Performed By: #### A LLMG ####[facility] LABCLIA [id number] [place] [address] [place] pH adjusted to patient's actual temperature (Bld) 7.32 Low 7.35-7.45 [facility] Comment on above: Order Comment: Speci men Type: ARTERIAL BLOOD SPECIMENOrdering Facility: [facility] Address: [address] [place] [address] Performed By: #### A LLMG ####[facility] LABCLIA [id number] [place] [address] [place] Potassium [Moles/Vol] 4.2 mmol/L Normal 3.5-5.0 [facility] Comment on above: Order Comment: Speci men Type: ARTERIAL BLOOD SPECIMENOrdering Facility: [facility] Address: [address] [place] [address] Performed By: #### A LLMG ####[facility] LABCLIA [id number] [place] [address] [place] Sodium [Moles/Vol] 138 mmol/L Normal 136-144 [facility] Comment on above: Order Comment: Speci men Type: ARTERIAL BLOOD SPECIMENOrdering Facility: [facility] Address: [address] [place] [address] Performed By: #### A LLMG ####[facility] LABCLIA [id number] [place] [id number] [place] BRIEF OP NOTon 12-12-2024 BRIEF OP NOT Normal [facility] CASE MANAGEMon 12-12-2024 CASE MANAGEM Normal [facility] CBC panel Auto (Bld)on 12-12 Erythrocyte distribution width (RBC) [Ratio] 22.2 % High 11.5-15.0 [facility] Comment on above: Order Comment: Speci men Type: BLOOD SPECIMENOrdering Facility: [facility] Address: [address] [place] [address] Performed By: #### 5 8410-2 ####[facility] LABIA [id number] [place] [address] [place] Hematocrit (Bld) [Volume fraction] 28.3 % Low 36.0-46.0 [facility] Comment on above: Order Comment: Speci men Type: BLOOD SPECIMENOrdering Facility: [facility] Address: [address] [place] [address] Performed By: #### 5 8410-2 ####[facility] LABIA [id number] [place] [address] [place] Hemoglobin (Bld) [Mass/Vol] 8.6 g/dL Low 11.5-15.5 [facility] Comment on above: Order Comment: Speci men Type: BLOOD SPECIMENOrdering Facility: [facility] Address: [address] [place] [address] Performed By: #### 5 8410-2 ####[facility] LABIA [id number] [place] [address] [place] MCH (RBC) [Entitic mass] 26.4 pg Normal 26.0-34.0 [facility] Comment on above: Order Comment: Speci men Type: BLOOD SPECIMENOrdering Facility: [facility] Address: [address] [place] [address] Performed By: #### 5 8410-2 ####[facility] LABIA [id number] [place] [address] [place] MCHC (RBC) [Mass/Vol] 30.4 g/dL Low 30.5-36.0 [facility] Comment on above: Order Comment: Speci men Type: BLOOD SPECIMENOrdering Facility: [facility] Address: [address] [place] [address] Performed By: #### 5 8410-2 ####[facility] LABCLIA [id number] [place] [address] [place] MCV (RBC) [Entitic vol] 86.8 fL Normal 80.0-100.0 [facility] Comment on above: Order Comment: Speci men Type: BLOOD SPECIMENOrdering Facility: [facility] Address: [address] [place] [address] Performed By: #### 5 8410-2 ####[facility] LABIA [id number] [place] [address] [place] Nucleated RBC (Bld) [#/Vol] 0.02 10*3/uL High <0.01 [facility] Comment on above: Order Comment: Speci men Type: BLOOD SPECIMENOrdering Facility: [facility] Address: [address] [place] [address] Performed By: #### 5 8410-2 ####[facility] LABIA [id number] [place] [address] [place] Platelet mean volume (Bld) [Entitic vol] 9.3 fL Normal 9.0-12.7 [facility] Comment on above: Order Comment: Speci men Type: BLOOD SPECIMENOrdering Facility: [facility] Address: [address] [place] [address] Performed By: #### 5 8410-2 ####[facility] LABCLIA [id number] [place] [address] [place] Platelets (Bld) [#/Vol] 292 10*3/uL Normal 150-400 [facility] Comment on above: Order Comment: Speci men Type: BLOOD SPECIMENOrdering Facility: [facility] Address: [address] [place] [address] Performed By: #### 5 8410-2 ####[facility] LABCLIA [id number] [address] [address] [place] RBC (Bld) [#/Vol] 3.26 10*6/uL Low 3.90-5.20 [facility] Comment on above: Order Comment: Speci men Type: BLOOD SPECIMENOrdering Facility: [facility] Address: [address] [place] [address] Performed By: #### 5 8410-2 ####[facility] LABCLIA [id number] [place] [address] [place] WBC (Bld) [#/Vol] 6.93 10*3/uL Normal 3.70-11.00 [facility] Comment on above: Order Comment: Speci men Type: BLOOD SPECIMENOrdering Facility: [facility] Address: [address] [place] [address] Performed By: #### 5 8410-2 ####[facility] LABIA [id number] [place] [address] [place] Comprehensive metabolic 2000 panelon 12-12-2024 Albumin [Mass/Vol] 3.2 g/dL Low 3.9-4.9 [facility] Comment on above: Order Comment: Speci men Type: BLOOD SPECIMENOrdering Facility: [facility] Address: [address] [place] [address] Performed By: #### 2 777-1, 63742-7, 34889-9 ####[facility] LABIA [id number] [place] [address] [place] ALP [Catalytic activity/Vol] 173 U/L High 34-123 [facility] Comment on above: Order Comment: Speci men Type: BLOOD SPECIMENOrdering Facility: [facility] Address: [address] [place] [address] Performed By: #### 2 777-1, 70815-6, 23508-7 ####[facility] LABCLIA [id number] [place] [address] [place] ALT [Catalytic activity/Vol] 41 U/L High 7-38 [facility] Comment on above: Order Comment: Speci men Type: BLOOD SPECIMENOrdering Facility: [facility] Address: [address] [place] [address] Performed By: #### 2 777-1, 43799-4, 56189-3 ####[facility] LABCLIA [id number] [place] [address] [place] Anion gap [Moles/Vol] 12 mmol/L Normal 8-15 [facility] Comment on above: Order Comment: Speci men Type: BLOOD SPECIMENOrdering Facility: [facility] Address: [address] [place] [address] Performed By: #### 2 777-1, 84698-1, ####[facility] LABIA [id number] [place] [address] [place] AST [Catalytic activity/Vol] 33 U/L Normal 13-35 [facility] Comment on above: Order Comment: Speci men Type: BLOOD SPECIMENOrdering Facility: [facility] Address: [address] [place] [address] Result Comment: Resu lts may be falsely increased due to interference from hemolysis. Suggest reorder as clinically indicated. Performed By: #### 2 777-1, 26143-4, ####[facility] LABCLIA [id number] [place] [address] [place] Bilirubin [Mass/Vol] 0.5 mg/dL Normal 0.2-1.3 [facility] Comment on above: Order Comment: Speci men Type: BLOOD SPECIMENOrdering Facility: [facility] Address: [address] [place] [address] Performed By: #### 2 777-1, 08229-8, ####[facility] LABCLIA [id number] [address] [place] [address] [place] Calcium [Mass/Vol] 8.7 mg/dL Normal 8.5-10.2 [facility] Comment on above: Order Comment: Speci men Type: BLOOD SPECIMENOrdering Facility: [facility] Address: [address] [place] [address] Performed By: #### 2 777-1, 61215-5, ####[facility] LABCLIA [id number] [place] [address] [place] Chloride [Moles/Vol] 105 mmol/L Normal 98-107 [facility] Comment on above: Order Comment: Speci men Type: BLOOD SPECIMENOrdering Facility: [facility] Address: [address] [place] [address] Performed By: #### 2 777-1, , ####[facility] LABCLIA [id number] [address], [place] [address] [place] CO2 [Moles/Vol] 20 mmol/L Low 22-30 [facility] Comment on above: Order Comment: Speci men Type: BLOOD SPECIMENOrdering Facility: [facility] Address: [address] [place] [address] Performed By: #### 2 777-1, , ####[facility] LABCLIA [id number] [place] [address] [place] Creatinine [Mass/Vol] 0.82 mg/dL Normal 0.58-0.96 [facility] Comment on above: Order Comment: Speci men Type: BLOOD SPECIMENOrdering Facility: [facility] Address: [address] [place] [address] Performed By: #### 2 777-1, , ####[facility] LABCLIA [id number] [address], [facility]95 [place] Creatinine and Glomerular filtration rate.predicted panel (S/P/Bld) 92 mL/min/1.73m??? Normal >=60 [facility] Comment on above: Order Comment: Dora finch Type: BLOOD SPECIMENOrdering Facility: [facility] Address: [address] [place] [address] Result Comment: Zeny mated Glomerular Filtration Rate [...] GFR. Performed By: #### 2 777-1, , ####[facility] LABIA [id number] [address] [address] [place] Glucose [Mass/Vol] 100 mg/dL High 74-99 [facility] Comment on above: Order Comment: Dora finch Type: BLOOD SPECIMENOrdering Facility: [facility] Address: [address] [place] [address] Result Comment: The [place] Diabetes Association (ADA) provides guidance for cutoff [...] Standards of Medical Care in Diabetes 2016, [place] [employer]. Diabetes Care. 2016.39(Suppl 1). Performed By: #### 2 777-1, 53979-3, ####[facility] LABIA [id number] [address] [address] [place] Potassium [Moles/Vol] 4.4 mmol/L Normal 3.7-5.1 [facility] Comment on above: Order Comment: Speci men Type: BLOOD SPECIMENOrdering Facility: [facility] Address: [address] [place] [address] Performed By: #### 2 777-1, , ####[facility] LABCLIA [id number] [facility] [address] [place] [address] [place] Protein [Mass/Vol] 6.4 g/dL Normal 6.3-8.0 [facility] Comment on above: Order Comment: Speci men Type: BLOOD SPECIMENOrdering Facility: [facility] Address: [address] [place] [address] Performed By: #### 2 777-1, , ####[facility] LABCLIA [id number] [address] [address] [place] Sodium [Moles/Vol] 137 mmol/L Normal 136-144 [facility] Comment on above: Order Comment: Speci men Type: BLOOD SPECIMENOrdering Facility: [facility] Address: [address] [place] [address] Performed By: #### 2 777-1, , ####[facility] LABCLIA [id number] [address] [place] [address] [place] Urea nitrogen [Mass/Vol] 20 mg/dL Normal 7-21 [facility] Comment on above: Order Comment: Speci men Type: BLOOD SPECIMENOrdering Facility: [facility] Address: [address] [place] [address] Performed By: #### 2 777-1, , ####[facility] LABCLIA [id number] [facility] [address] [place] [address] [place] Lactate (Bld) [Moles/Vol]on 12-12-2024 Lactate [Moles/Vol] 5.2 mmol/L High 0.5-2.2 [facility] Comment on above: Order Comment: Speci men Type: BLOOD SPECIMENOrdering Facility: [facility] Address: [address] [place] [address] Performed By: #### 3 2693-4 ####[facility] LABCLIA [id number] [place] [address] [place] Magnesium SerPl-mCncon 12-12 Magnesium [Mass/Vol] 1.8 mg/dL Normal 1.7-2.3 [facility] Comment on above: Order Comment: Speci men Type: BLOOD SPECIMENOrdering Facility: [facility] Address: [address] [place] [address] Performed By: #### 2 777-1, 36511-0, 38194-2 ####[facility] LABIA [id number] [place] [address] [place] OPERATIVE NOon 12-12-2024 OPERATIVE NO Normal [facility] PTT, ANTICOAGULANT THERAPYon 12-12-2024 aPTT Coag (PPP) [Time] 22.2 s Low 23.0-32.4 [facility] Comment on above: Order Comment: Speci men Type: BLOOD SPECIMENOrdering Facility: [facility] Address: [address] [place] [address] Performed By: #### P TTAC ####[facility] LABIA [id number] [place] [address] [place] Pathology biopsy report Stan (Tiss)on 12-12-2024 AP DISCLAIMER Normal [facility] Comment on above: Order Comment: Speci men Type: TISSUE SPECIMENOrdering Facility: [facility] Address: [address] [place] [address] Result Comment: Billie cardenas Developed Test (LDT) Disclaimer:Performance characteristics of immunohistochemical, immunofluorescent, and chromogenic in-situ hybridization tests have been determined by the performing laboratory within [facility]'s Barry Morales Pathology and Laboratory Medicine Department ([facility], [facility], [facility], [facility], [facility], [facility], or [facility]) in a manner consistent with CLIA requirements. One or more of these tests may not have been cleared or approved by the FDA. [facility] is regulated under CLIA as qualified to perform high-complexity testing. These tests are used for clinical purposes. These should not be regarded as investigational or for research. Positive and negative controls stain appropriately. Performed By: #### 6 6121-5 ####[facility] LABIA [id number] [address] CASE REPORT Normal [facility] Comment on above: Order Comment: Speci men Type: TISSUE SPECIMENOrdering Facility: [facility] Address: [address] [place] [address] Result Comment: Surg [facility] Pathology Report Case: [id number] Provider: Kirit Devine MD Collected: 12/12/2024 10:48 AMOrdering Location: Admitting Received: 12/12/2024 03:06 PMPathologist: Kae Manning MDSpecimens: A) - Omentum, Resection, omentum B) - Small Bowel, Ileostomy, Loop ileostomy C) - Soft Tissue (Not otherwise specified), Peristomal Fat Performed By: #### 6 6121-5 ####[facility] LABIA [id number] [address] [address] [facility] CLINICAL HISTORY Normal [facility] Comment on above: Order Comment: Speci men Type: TISSUE SPECIMENOrdering Facility: [facility] Address: [address] [place] [address] Result Comment: Pre- op diagnosis:High output ileostomy (HCC) [R19.8, Z93.2] Performed By: #### 6 6121-5 ####[facility] LABIA [id number] [address] [place] [address] [facility] FINAL DIAGNOSIS Normal [facility] Comment on above: Order Comment: Speci men Type: TISSUE SPECIMENOrdering Facility: [facility] Address: [address] [place] [address] Result Comment: A. O mentum, omentectomy:- Benign mature adipose tissue.B. Ileum, ileostomy takedown:- Enterocutaneous tissue with histologic features consistent with an ileostomy site.C. Soft tissue, peristomal fat, excision:- Fibroadipose tissue with fat necrosis. at 1624 EDT Performed By: #### 6 6121-5 ####[facility] LABCLIA [id number] [place] [address] [place] FINAL PERFORMING LAB Normal [facility] Comment on above: Order Comment: Speci men Type: TISSUE SPECIMENOrdering Facility: [facility] Address: [address] [place] [address] Result Comment: Diag nostic interpretation performed at: [facility], [address] [place] [address] CLIA# [id number] Director: Jaison Lema MD Performed By: #### 6 6121-5 ####[facility] LABCLIA [id number] [address] STATES OF [facility] GROSS DESCRIPTION Normal [facility] Comment on above: Order Comment: Speci men Type: TISSUE SPECIMENOrdering Facility: [facility] Address: [address] [place] [address] Result Comment: A. O mentum, ResectionReceived fresh labeled omentum is a 15.0 x 14.0 x 1.0 cm aggregate of cunha-yellow, lobulated soft tissue consistent with omentum. No nodules are areas of induration are seen. Sectioning reveals yellow, homogeneous cut surfaces. Brain Surgeon section submitted in A1.B. Small Bowel, IleostomyReceived [...] polyps or mass lesions are identified. A risk control field representative section of the ostomy site is submitted in B1.C. Soft Tissue (Not otherwise specified)Received fresh labeled peristomal fat is a 4.0 x 3.5 x 2.0 cm cunha-yellow lobulated soft tissue fragment. Sectioning reveals cunha-yellow homogenous cut surfaces. No nodules or areas of induration are grossly appreciated. Brain Surgeon section submitted in C1.Gross examination performed at [facility], [address] [place], [place] [address]MSL/ARIELA 12/12/24 3:23 PM Performed By: #### 6 6121-5 ####[facility] [id number] [place] [address] [place] Phosphate SerPl-mCncon 12-12 Phosphate [Mass/Vol] 3.7 mg/dL Normal 2.7-4.8 [facility] Comment on above: Order Comment: Speci men Type: BLOOD SPECIMENOrdering Facility: [facility] Address: [address] [place] [address] Performed By: #### 2 777-1, 54698-4, 27028-0 ####[facility] [id number] [place] [address] [place] CBC panel Auto (Bld)on 12-11 Erythrocyte distribution width (RBC) [Ratio] 22.3 % High 11.5-15.0 [facility] Comment on above: Order Comment: Speci men Type: BLOOD SPECIMENOrdering Facility: [facility] Address: [address] [place] [address] Performed By: #### 5 8410-2 ####[facility] [id number] [place] [address] [place] Hematocrit (Bld) [Volume fraction] 26.7 % Low 36.0-46.0 [facility] Comment on above: Order Comment: Speci men Type: BLOOD SPECIMENOrdering Facility: [facility] Address: [address] [place] [address] Performed By: #### 5 8410-2 ####[facility] LABCLIA [id number] [place] [address] [place] Hemoglobin (Bld) [Mass/Vol] 8.3 g/dL Low 11.5-15.5 [facility] Comment on above: Order Comment: Speci men Type: BLOOD SPECIMENOrdering Facility: [facility] Address: [address] [place] [address] Performed By: #### 5 8410-2 ####[facility] LABIA [id number] [place] [address] [place] MCH (RBC) [Entitic mass] 28.0 pg Normal 26.0-34.0 [facility] Comment on above: Order Comment: Speci men Type: BLOOD SPECIMENOrdering Facility: [facility] Address: [address] [place] [address] Performed By: #### 5 8410-2 ####[facility] LABIA [id number] [place] [address] [place] MCHC (RBC) [Mass/Vol] 31.1 g/dL Normal 30.5-36.0 [facility] Comment on above: Order Comment: Speci men Type: BLOOD SPECIMENOrdering Facility: [facility] Address: [address] [place] [address] Performed By: #### 5 8410-2 ####[facility] LABIA [id number] [place] [address] [place] MCV (RBC) [Entitic vol] 90.2 fL Normal 80.0-100.0 [facility] Comment on above: Order Comment: Speci men Type: BLOOD SPECIMENOrdering Facility: [facility] Address: [address] [place] [address] Performed By: #### 5 8410-2 ####[facility] LABIA [id number] [address] [address] [place] Nucleated RBC (Bld) [#/Vol] 0.02 10*3/uL High <0.01 [facility] Comment on above: Order Comment: Speci men Type: BLOOD SPECIMENOrdering Facility: [facility] Address: [address] [place] [address] Performed By: #### 5 8410-2 ####[facility] LABCLIA [id number] [place] [address] [place] Platelet mean volume (Bld) [Entitic vol] 11.2 fL Normal 9.0-12.7 [facility] Comment on above: Order Comment: Speci men Type: BLOOD SPECIMENOrdering Facility: [facility] Address: [address] [place] [address] Performed By: #### 5 8410-2 ####[facility] LABIA [id number] [place] [address] [place] Platelets (Bld) [#/Vol] 301 10*3/uL Normal 150-400 [facility] Comment on above: Order Comment: Speci men Type: BLOOD SPECIMENOrdering Facility: [facility] Address: [address] [place] [address] Performed By: #### 5 8410-2 ####[facility] LABIA [id number] [place] [address] [place] RBC (Bld) [#/Vol] 2.96 10*6/uL Low 3.90-5.20 [facility] Comment on above: Order Comment: Speci men Type: BLOOD SPECIMENOrdering Facility: [facility] Address: [address] [place] [address] Performed By: #### 5 8410-2 ####[facility] LABCLIA [id number] [place] [address] [place] WBC (Bld) [#/Vol] 6.78 10*3/uL Normal 3.70-11.00 [facility] Comment on above: Order Comment: Speci men Type: BLOOD SPECIMENOrdering Facility: [facility] Address: [address] [place] [address] Performed By: #### 5 8410-2 ####[facility] LABCLIA [id number] [place] [address] [place] CONSULT PROGon 12-11-2024 CONSULT PROG Normal [facility] CONSULT PROG Normal [facility] CONSULT PROG Normal [facility] Comprehensive metabolic 2000 panelon 12-11-2024 Albumin [Mass/Vol] 3.5 g/dL Low 3.9-4.9 [facility] Comment on above: Order Comment: Speci men Type: BLOOD SPECIMENOrdering Facility: [facility] Address: [address] [place] [address] Performed By: #### 2 571-8, 30122-7, 46357-2, 2777-1 ####[facility] LABCLIA [id number] [place] [address] [place] ALP [Catalytic activity/Vol] 205 U/L High 34-123 [facility] Comment on above: Order Comment: Speci men Type: BLOOD SPECIMENOrdering Facility: [facility] Address: [address] [place] [address] Performed By: #### 2 571-8, 36027-8, 88044-7, 2777-1 ####[facility] LABCLIA [id number] [place] [id number] [place] ALT [Catalytic activity/Vol] 45 U/L High 7-38 [facility] Comment on above: Order Comment: Speci men Type: BLOOD SPECIMENOrdering Facility: [facility] Address: [address] [place] [address] Performed By: #### 2 571-8, 53882-2, 39552-0, 2777-1 ####[facility] LABCLIA [id number] [place] [address] [place] Anion gap [Moles/Vol] 12 mmol/L Normal 8-15 [facility] Comment on above: Order Comment: Speci men Type: BLOOD SPECIMENOrdering Facility: [facility] Address: [address] [place] [address] Performed By: #### 2 571-8, 30290-8, 00491-5, 2777-1 ####[facility] LABCLIA [id number] [place] [address] [place] AST [Catalytic activity/Vol] 38 U/L High 13-35 [facility] Comment on above: Order Comment: Speci men Type: BLOOD SPECIMENOrdering Facility: [facility] Address: [address] [place] [address] Performed By: #### 2 571-8, 63797-2, 08735-6, 2777-1 ####[facility] LABCLIA [id number] [place] [address] [place] Bilirubin [Mass/Vol] 0.5 mg/dL Normal 0.2-1.3 [facility] Comment on above: Order Comment: Speci men Type: BLOOD SPECIMENOrdering Facility: [facility] Address: [address] [place] [address] Performed By: #### 2 571-8, 47302-9, 44700-0, 2777-1 ####[facility] LABCLIA [id number] [place] [address] [place] Calcium [Mass/Vol] 9.3 mg/dL Normal 8.5-10.2 [facility] Comment on above: Order Comment: Speci men Type: BLOOD SPECIMENOrdering Facility: [facility] Address: [address] [place] [address] Performed By: #### 2 571-8, 26661-3, 82804-8, 2777-1 ####[facility] LABCLIA [id number] [place] [address] [place] Chloride [Moles/Vol] 102 mmol/L Normal 98-107 [facility] Comment on above: Order Comment: Speci men Type: BLOOD SPECIMENOrdering Facility: [facility] Address: [address] [place] [address] Performed By: #### 2 571-8, 30604-2, 82708-1, 2777-1 ####[facility] LABCLIA [id number] [place] [address] [place] CO2 [Moles/Vol] 24 mmol/L Normal 22-30 [facility] Comment on above: Order Comment: Speci men Type: BLOOD SPECIMENOrdering Facility: [facility] Address: [address] [place] [address] Performed By: #### 2 571-8, 26463-1, 98306-7, 2777-1 ####[facility] LABIA [id number] [place] [address] [place] Creatinine [Mass/Vol] 0.77 mg/dL Normal 0.58-0.96 [facility] Comment on above: Order Comment: Speci men Type: BLOOD SPECIMENOrdering Facility: [facility] Address: [address] [place] [address] Performed By: #### 2 571-8, 22179-1, 64658-1, 2777-1 ####[facility] LABIA [id number] [place] [id number] [place] Creatinine and Glomerular filtration rate.predicted panel (S/P/Bld) 100 mL/min/1.73m??? Normal >=60 [facility] Comment on above: Order Comment: Speci men Type: BLOOD SPECIMENOrdering Facility: [facility] Address: [address] [place] [address] Result Comment: Zeny mated Glomerular Filtration Rate [...] reflect actual GFR. Performed By: #### 2 571-8, 80349-9, , 2776- ####[facility] LABCLIA [id number] [address] [address] [place] Glucose [Mass/Vol] 118 mg/dL High 74-99 [facility] Comment on above: Order Comment: Dora finch Type: BLOOD SPECIMENOrdering Facility: [facility] Address: [address] [place] [address] Result Comment: The [place] Diabetes Association (ADA) provides guidance for cutoff [...] Standards of Medical Care in Diabetes 2016, [place] Diabetes Association. Diabetes Care. 2016.39(Suppl 1). Performed By: #### 2 571-8, 55255-0, , 2776-06 ####[facility] LABCLIA [id number] [address] [address] [place] Potassium [Moles/Vol] 4.0 mmol/L Normal 3.7-5.1 [facility] Comment on above: Order Comment: Dora finch Type: BLOOD SPECIMENOrdering Facility: [facility] Address: [address] [place] [address] Performed By: #### 2 571-8, 42899-9, 66055-3, 2776- ####[facility] LABCLIA [id number] [address] [address] [place] Protein [Mass/Vol] 7.1 g/dL Normal 6.3-8.0 [facility] Comment on above: Order Comment: Speci men Type: BLOOD SPECIMENOrdering Facility: [facility] Address: [address] [place], [place] [address] Performed By: #### 2 571-8, 65393-2, 67018-0, 2777-1 ####[facility] LABIA [id number] [address] [address] [place] Sodium [Moles/Vol] 138 mmol/L Normal 136-144 [facility] Comment on above: Order Comment: Speci men Type: BLOOD SPECIMENOrdering Facility: [facility] Address: [address] [place] [address] Performed By: #### 2 571-8, 04629-1, 21254-6, 2777- ####[facility] LABIA [id number] [place] [address] [place] Urea nitrogen [Mass/Vol] 17 mg/dL Normal 7-21 [facility] Comment on above: Order Comment: Speci men Type: BLOOD SPECIMENOrdering Facility: [facility] Address: [address] [place], [place] [address] Performed By: #### 2 571-8, 32188-2, 65394-4, 2777-1 ####[facility] LABIA [id number] [address] [address] [place] ECG COMPLETEon 12-11-2024 ECG COMPLETE Normal [facility] Magnesium SerPl-mCncon 12-11 Magnesium [Mass/Vol] 1.9 mg/dL Normal 1.7-2.3 [facility] Comment on above: Order Comment: Speci men Type: BLOOD SPECIMENOrdering Facility: [facility] Address: [address] [place] [address] Performed By: #### 2 571-8, 52475-6, 29701-0, 2776-1 ####[facility] [id number] [place] [address] [place] NUTRITIONon 12-11-2024 NUTRITION Normal [facility] PTT, ANTICOAGULANT THERAPYon 12-11-2024 aPTT Coag (PPP) [Time] 55.2 s High 23.0-32.4 [facility] Comment on above: Order Comment: Speci men Type: BLOOD SPECIMENOrdering Facility: [facility] Address: [address] [place] [address] Performed By: #### P TTAC ####[facility] [id number] [place] [address] [place] [facility] aPTT Coag (PPP) [Time] 68.6 s High 23.0-32.4 [facility] Comment on above: Order Comment: Speci men Type: BLOOD SPECIMENOrdering Facility: [facility] Address: [address] [place] [address] Performed By: #### P TTAC ####[facility] [id number] [place] [address] [place] Phosphate SerPl-mCncon 12-11 Phosphate [Mass/Vol] 3.1 mg/dL Normal 2.7-4.8 [facility] Comment on above: Order Comment: Speci men Type: BLOOD SPECIMENOrdering Facility: [facility] Address: [address] [place] [address] Performed By: #### 2 571-8, 79379-0, 17471-8, 2777- ####[facility] [id number] [place] [address] [place] Trigl SerPl-mCncon Triglyceride [Mass/Vol] 107 mg/dL Normal <150 [facility] Comment on above: Order Comment: Speci men Type: BLOOD SPECIMENOrdering Facility: [facility] Address: [address] [place] [id number] Result Comment: <150 mg/dL, Normal 150-199 mg/dL, Borderline high 200-499 mg/dL, High>499 mg/dL, Very highReference:1. National Cholesterol Education Program ATP III Guideline At-A-Glance Quick Desk Reference: National Heart, Lung, and Blood [place]. National Institutes of Health. 2001: NIH Publication No. 01-3305. Performed By: #### 2 571-8, 72664-2, 35777-8, 2777-1 ####[facility] LABCLIA [id number] [address] [address] [place] Triglyceride [Mass/Vol]on FASTING TIME 0 hrs Normal [facility] Comment on above: Order Comment: Speci men Type: BLOOD SPECIMENOrdering Facility: [facility] Address: [address] [place] [address] Performed By: #### 2 571-8, 99897-9, 38819-2, 2777-1 ####[facility] LABCLIA [id number] [place] [address] [place] Vancomycin [place] SerPl-mCncon 12-11-2024 Vancomycin random [Mass/Vol] 14.8 ug/mL Normal 10.0-20.0 [facility] Comment on above: Order Comment: Speci men Type: BLOOD SPECIMENOrdering Facility: [facility] Address: [address] [place] [address] Result Comment: Refe rence ranges and high/low indicator flags are provided as general guidelines only. The treating physician must determine appropriate target levels/dosing based on the specific clinical situation. Performed By: #### 4 091-5 ####[facility] LABCLIA [id number] [place] [address] [place] ANES POSTPROC EVALon 025 ANES POSTPROC EVAL Normal [facility] ANES PRE-OPon 12-10-2024 ANES PRE-OP Normal [facility] B-HCG SerPl-aCncon HCG.beta subunit Qn m[IU]/mL Normal <5.0 [facility] Comment on above: Order Comment: Speci men Type: BLOOD SPECIMENOrdering Facility: [facility] Address: [address] [place] [address] Result Comment: [facility] Performed By: #### 2 1198-7 ####[facility] LABIA [id number] [place] [address] [place] CASE MANAGEMon 12-10-2024 CASE MANAGEM Normal [facility] CBC panel Auto (Bld)on 12-10 Erythrocyte distribution width (RBC) [Ratio] 21.9 % High 11.5-15.0 [facility] Comment on above: Order Comment: Speci men Type: BLOOD SPECIMENOrdering Facility: [facility] Address: [address] [place] [address] Performed By: #### 5 8410-2 ####[facility] LABIA [id number] [place] [address] [place] Hematocrit (Bld) [Volume fraction] 28.0 % Low 36.0-46.0 [facility] Comment on above: Order Comment: Speci men Type: BLOOD SPECIMENOrdering Facility: [facility] Address: [address] [place] [address] Performed By: #### 5 8410-2 ####[facility] LABIA [id number] [place] [address] [place] Hemoglobin (Bld) [Mass/Vol] 8.3 g/dL Low 11.5-15.5 [facility] Comment on above: Order Comment: Speci men Type: BLOOD SPECIMENOrdering Facility: [facility] Address: [address] [place] [address] Performed By: #### 5 8410-2 ####[facility] LABIA [id number] [place] [address] [place] MCH (RBC) [Entitic mass] 27.9 pg Normal 26.0-34.0 [facility] Comment on above: Order Comment: Speci men Type: BLOOD SPECIMENOrdering Facility: [facility] Address: [address] [place] [address] Performed By: #### 5 8410-2 ####[facility] LABIA [id number] [address] [place] MCHC (RBC) [Mass/Vol] 29.6 g/dL Low 30.5-36.0 [facility] Comment on above: Order Comment: Speci men Type: BLOOD SPECIMENOrdering Facility: [facility] Address: [address] [place] [address] Performed By: #### 5 8410-2 ####[facility] [id number] [address] [place] MCV (RBC) [Entitic vol] 94.0 fL Normal 80.0-100.0 [facility] Comment on above: Order Comment: Speci men Type: BLOOD SPECIMENOrdering Facility: [facility] Address: [address] [place] [address] Result Comment: MCV is >= 10% variation from the most recent sample, clinical correlation suggested to exclude specimen misidentification. Performed By: #### 5 8410-2 ####[facility] LABIA [id number] [place] [address] [place] Nucleated RBC (Bld) [#/Vol] 0.02 10*3/uL High <0.01 [facility] Comment on above: Order Comment: Speci men Type: BLOOD SPECIMENOrdering Facility: [facility] Address: [address] [place] [address] Performed By: #### 5 8410-2 ####[facility] LABIA [id number] [place] [address] [place] Platelet mean volume (Bld) [Entitic vol] 11.7 fL Normal 9.0-12.7 [facility] Comment on above: Order Comment: Speci men Type: BLOOD SPECIMENOrdering Facility: [facility] Address: [address] [place] [address] Performed By: #### 5 8410-2 ####[facility] LABCLIA [id number] [place] [address] [place] Platelets (Bld) [#/Vol] 389 10*3/uL Normal 150-400 [facility] Comment on above: Order Comment: Speci men Type: BLOOD SPECIMENOrdering Facility: [facility] Address: [address] [place] [address] Performed By: #### 5 8410-2 ####[facility] LABIA [id number] [place] [address] [place] RBC (Bld) [#/Vol] 2.98 10*6/uL Low 3.90-5.20 [facility] Comment on above: Order Comment: Speci men Type: BLOOD SPECIMENOrdering Facility: [facility] Address: [address] [place] [address] Performed By: #### 5 8410-2 ####[facility] LABIA [id number] [place] [address] [place] WBC (Bld) [#/Vol] 6.68 10*3/uL Normal 3.70-11.00 [facility] Comment on above: Order Comment: Speci men Type: BLOOD SPECIMENOrdering Facility: [facility] Address: [address] [place] [address] Result Comment: No c lot detected. Performed By: #### 5 8410-2 ####[facility] LABCLIA [id number] [place] [address] [place] CONSULT PROGon 12-10-2024 CONSULT PROG Normal [facility] CONSULT PROG Normal [facility] CRP SerPl-mCncon 12-10-2024 CRP [Mass/Vol] Normal <0.9 [facility] Comment on above: Order Comment: Speci men Type: BLOOD SPECIMENOrdering Facility: [facility] Address: [address] [place] [address] Result Comment: Poss ible contamination.Corrected result: Previously reported as <0.3 mg/dL on 12/10/2024 at 8:05 AM EDT. Performed By: #### 1 988-5 ####[facility] LABCLIA [id number] [address] [place] [address] [place] Comprehensive metabolic 2000 panelon 12-10-2024 Albumin [Mass/Vol] 3.7 g/dL Low 3.9-4.9 [facility] Comment on above: Order Comment: Speci men Type: BLOOD SPECIMENOrdering Facility: [facility] Address: [address] [place] [address] Performed By: #### 1 9123-9, 78288-4, 2777-1 ####[facility] LABCLIA [id number] [address] [place] [address] [place] ALP [Catalytic activity/Vol] 198 U/L High 34-123 [facility] Comment on above: Order Comment: Speci men Type: BLOOD SPECIMENOrdering Facility: [facility] Address: [address] [place] [address] Performed By: #### 1 9123-9, 35184-6, 2777-1 ####[facility] LABCLIA [id number] [facility] [address] [address] [place] ALT [Catalytic activity/Vol] 43 U/L High 7-38 [facility] Comment on above: Order Comment: Speci men Type: BLOOD SPECIMENOrdering Facility: [facility] Address: [address] [place] [address] Performed By: #### 1 9123-9, 48870-9, 2777-1 ####[facility] LABCLIA [id number] [address] [address] [place] Anion gap [Moles/Vol] 11 mmol/L Normal 8-15 [facility] Comment on above: Order Comment: Speci men Type: BLOOD SPECIMENOrdering Facility: [facility] Address: [address] [place] [address] Performed By: #### 1 9123-9, 95977-7, 277-1 ####[facility] LABCLIA [id number] [place] [address] [place] AST [Catalytic activity/Vol] 34 U/L Normal 13-35 [facility] Comment on above: Order Comment: Speci men Type: BLOOD SPECIMENOrdering Facility: [facility] Address: [address] [place] [address] Performed By: #### 1 9123-9, 30897-1, 277-1 ####[facility] LABCLIA [id number] [place] [address] [place] Bilirubin [Mass/Vol] 0.6 mg/dL Normal 0.2-1.3 [facility] Comment on above: Order Comment: Speci men Type: BLOOD SPECIMENOrdering Facility: [facility] Address: [address] [place] [address] Performed By: #### 1 9123-9, 11542-9, 2776- ####[facility] LABCLIA [id number] [address], [facility] [place] Calcium [Mass/Vol] 9.6 mg/dL Normal 8.5-10.2 [facility] Comment on above: Order Comment: Speci men Type: BLOOD SPECIMENOrdering Facility: [facility] Address: [address] [place] [address] Performed By: #### 1 9123-9, 50807-1, 2777-1 ####[facility] LABCLIA [id number] [facility] [address] [place] [address] [place] Chloride [Moles/Vol] 103 mmol/L Normal 98-107 [facility] Comment on above: Order Comment: Speci men Type: BLOOD SPECIMENOrdering Facility: [facility] Address: [address] [place] [address] Performed By: #### 1 9123-9, 13952-1, 2777- ####[facility] LABCLIA [id number] [place] [address] [place] CO2 [Moles/Vol] 23 mmol/L Normal 22-30 [facility] Comment on above: Order Comment: Speci men Type: BLOOD SPECIMENOrdering Facility: [facility] Address: [address] [place] [address] Performed By: #### 1 9123-9, 13102-3, 277- ####[facility] LABIA [id number] [place] [address] [place] Creatinine [Mass/Vol] 0.85 mg/dL Normal 0.58-0.96 [facility] Comment on above: Order Comment: Speci men Type: BLOOD SPECIMENOrdering Facility: [facility] Address: [address] [place] [address] Performed By: #### 1 9123-9, 22852-3, 2777 ####[facility] LABIA [id number] [place] [address] [place] Creatinine and Glomerular filtration rate.predicted panel (S/P/Bld) 88 mL/min/1.73m??? Normal >=60 [facility] Comment on above: Order Comment: Speci men Type: BLOOD SPECIMENOrdering Facility: [facility] Address: [address] [place] [address] Result Comment: Zeny mated Glomerular Filtration Rate [...] actual GFR. Performed By: #### 1 9123-9, , 2776-06 ####[facility] LABCLIA [id number] [address] [address] [place] Glucose [Mass/Vol] 119 mg/dL High 74-99 [facility] Comment on above: Order Comment: Speci men Type: BLOOD SPECIMENOrdering Facility: [facility] Address: [address] [place] [address] Result Comment: The [place] Diabetes Association (ADA) provides guidance for cutoff [...] Standards of Medical Care in Diabetes 2016, [place] [employer]. Diabetes Care. 2016.39(Suppl 1). Performed By: #### 1 9123-9, , 2776-06 ####[facility] LABIA [id number] [address] [address] [place] Potassium [Moles/Vol] 4.8 mmol/L Normal 3.7-5.1 [facility] Comment on above: Order Comment: Speci men Type: BLOOD SPECIMENOrdering Facility: [facility] Address: [address] [place] [address] Performed By: #### 1 9123-9, , 2776-06 ####[facility] LABIA [id number] [address] [address] [place] Protein [Mass/Vol] 7.4 g/dL Normal 6.3-8.0 [facility] Comment on above: Order Comment: Speci men Type: BLOOD SPECIMENOrdering Facility: [facility] Address: [address] [place], [place] [address] Performed By: #### 1 9123-9, 63856-4, 2777-1 ####[facility] LABIA [id number] [place] [address] [place] Sodium [Moles/Vol] 137 mmol/L Normal 136-144 [facility] Comment on above: Order Comment: Speci men Type: BLOOD SPECIMENOrdering Facility: [facility] Address: [address] [place] [address] Performed By: #### 1 9123-9, 71743-9, 2777-1 ####[facility] LABIA [id number] [place] [address] [place] Urea nitrogen [Mass/Vol] 16 mg/dL Normal 7-21 [facility] Comment on above: Order Comment: Speci men Type: BLOOD SPECIMENOrdering Facility: [facility] Address: [address] [place] [address] Performed By: #### 1 9123-9, 57857-4, 2777-1 ####[facility] [id number] [place] [address] [place] Magnesium SerPl-mCncon 12-10 Magnesium [Mass/Vol] 2.2 mg/dL Normal 1.7-2.3 [facility] Comment on above: Order Comment: Speci men Type: BLOOD SPECIMENOrdering Facility: [facility] Address: [address] [place], [place] [address] Performed By: #### 1 9123-9, 99786-0, 2777-1 ####[facility] LABIA [id number] [place] [address] [place] NUTRITIONon 12-10-2024 NUTRITION Normal [facility] PTT, ANTICOAGULANT THERAPYon 12-10-2024 aPTT Coag (PPP) [Time] 50.4 s High 23.0-32.4 [facility] Comment on above: Order Comment: Speci men Type: BLOOD SPECIMENOrdering Facility: [facility] Address: [address] [place] [address] Performed By: #### P TTAC ####[facility] LABCLIA [id number] [place] [address] [place] aPTT Coag (PPP) [Time] 29.2 s Normal 23.0-32.4 [facility] Comment on above: Order Comment: Speci men Type: BLOOD SPECIMENOrdering Facility: [facility] Address: [address] [place] [address] Result Comment: Inte rpret with caution. Sample centrifuged greater than 1 hour from collection time. According to Clinical and Laboratory Standards [place] guidelines, results could be falsely decreased due to heparin neutralization by in vitro release of platelet factor 4. Suggest correlation with clinical findings and redraw if indicated. Performed By: #### P TTAC ####[facility] LABCLIA [id number] [place] [address] [place] Phosphate SerPl-mCncon 12-10 Phosphate [Mass/Vol] 4.3 mg/dL Normal 2.7-4.8 [facility] Comment on above: Order Comment: Speci men Type: BLOOD SPECIMENOrdering Facility: [facility] Address: [address] [place] [address] Performed By: #### 1 9123-9, 26869-7, 2777-1 ####[facility] LABCLIA [id number] [place] [address] [place] TYPE + SCREENon 12-10-2024 ABO O Normal [facility] Comment on above: Order Comment: Speci men Type: BLOOD SPECIMENOrdering Facility: [facility] Address: [address] [place] [address] Performed By: #### T SCR ####[facility]ANK[facility] [id number] [place] [address] [place] Rh Nom (Bld) Positive Normal [facility] Comment on above: Order Comment: Speci men Type: BLOOD SPECIMENOrdering Facility: [facility] Address: [address] [place] [address] Performed By: #### T SCR ####[facility]CL[facility] [id number] [address] [address] [place] TYPE AND SCREEN EXPIRATION 12/13/2024 23:59 Normal [facility] Comment on above: Order Comment: Speci men Type: BLOOD SPECIMENOrdering Facility: [facility] Address: [address] [place] [address] Performed By: #### T SCR ####[facility] BANKCLIA [id number] [address] [address] [place] ALLIED HEALTHon 12-09-2024 ALLIED HEALTH Normal [facility] CBC panel Auto (Bld)on 12-09 Erythrocyte distribution width (RBC) [Ratio] 20.9 % High 11.5-15.0 [facility] Comment on above: Order Comment: Speci men Type: BLOOD SPECIMENOrdering Facility: [facility] Address: [address] [place] [address] Performed By: #### 5 8410-2 ####[facility] LABCLIA [id number] [place] [address] [place] Hematocrit (Bld) [Volume fraction] 28.3 % Low 36.0-46.0 [facility] Comment on above: Order Comment: Speci men Type: BLOOD SPECIMENOrdering Facility: [facility] Address: [address] [place] [address] Performed By: #### 5 8410-2 ####[facility] LABCLIA [id number] [address] [address] [place] Hemoglobin (Bld) [Mass/Vol] 8.9 g/dL Low 11.5-15.5 [facility] Comment on above: Order Comment: Speci men Type: BLOOD SPECIMENOrdering Facility: [facility] Address: [address] [place] [address] Performed By: #### 5 8410-2 ####[facility] LABCLIA [id number] [place] [address] [place] MCH (RBC) [Entitic mass] 26.5 pg Normal 26.0-34.0 [facility] Comment on above: Order Comment: Speci men Type: BLOOD SPECIMENOrdering Facility: [facility] Address: [address] [place] [address] Performed By: #### 5 8410-2 ####[facility] LABIA [id number] [place] [address] [place] MCHC (RBC) [Mass/Vol] 31.4 g/dL Normal 30.5-36.0 [facility] Comment on above: Order Comment: Speci men Type: BLOOD SPECIMENOrdering Facility: [facility] Address: [address] [place] [address] Performed By: #### 5 8410-2 ####[facility] LABIA [id number] [place] [address] [place] MCV (RBC) [Entitic vol] 84.2 fL Normal 80.0-100.0 [facility] Comment on above: Order Comment: Speci men Type: BLOOD SPECIMENOrdering Facility: [facility] Address: [address] [place] [address] Performed By: #### 5 8410-2 ####[facility] LABCLIA [id number] [place] [address] [place] Nucleated RBC (Bld) [#/Vol] 10*3/uL Normal <0.01 [facility] Comment on above: Order Comment: Speci men Type: BLOOD SPECIMENOrdering Facility: [facility] Address: [address] [place] [address] Performed By: #### 5 8410-2 ####[facility] LABCLIA [id number] [address] [address] [place] Platelet mean volume (Bld) [Entitic vol] 9.2 fL Normal 9.0-12.7 [facility] Comment on above: Order Comment: Speci men Type: BLOOD SPECIMENOrdering Facility: [facility] Address: [address] [place] [address] Performed By: #### 5 8410-2 ####[facility] [id number] [address], [place] [address] [place] Platelets (Bld) [#/Vol] 423 10*3/uL High 150-400 [facility] Comment on above: Order Comment: Speci men Type: BLOOD SPECIMENOrdering Facility: [facility] Address: [address] [place] [address] Performed By: #### 5 8410-2 ####[facility] [id number] [place] [address] [place] RBC (Bld) [#/Vol] 3.36 10*6/uL Low 3.90-5.20 [facility] Comment on above: Order Comment: Speci men Type: BLOOD SPECIMENOrdering Facility: [facility] Address: [address] [place] [address] Performed By: #### 5 8410-2 ####[facility] [id number] [place] [address] [place] WBC (Bld) [#/Vol] 8.36 10*3/uL Normal 3.70-11.00 [facility] Comment on above: Order Comment: Speci men Type: BLOOD SPECIMENOrdering Facility: [facility] Address: [address] [place] [address] Performed By: #### 5 8410-2 ####[facility] [id number] [place] [address] [place] Comprehensive metabolic 2000 panelon 12-09-2024 Albumin [Mass/Vol] 3.2 g/dL Low 3.9-4.9 [facility] Comment on above: Order Comment: Speci men Type: BLOOD SPECIMENOrdering Facility: [facility] Address: [address] [place] [address] Performed By: #### 2 4323-8, 277-1, ####[facility] LABCLIA [id number] [address] [address] [place] ALP [Catalytic activity/Vol] 163 U/L High 34-123 [facility] Comment on above: Order Comment: Speci men Type: BLOOD SPECIMENOrdering Facility: [facility] Address: [address] [place] [address] Performed By: #### 2 4323-8, 27712-25, ####[facility] LABCLIA [id number] [address] [address] [place] ALT [Catalytic activity/Vol] 37 U/L Normal 7-38 [facility] Comment on above: Order Comment: Speci men Type: BLOOD SPECIMENOrdering Facility: [facility] Address: [address] [place] [address] Performed By: #### 2 4323-8, 2776-06, ####[facility] LABCLIA [id number] [address] [address] [place] Anion gap [Moles/Vol] 12 mmol/L Normal 8-15 [facility] Comment on above: Order Comment: Speci men Type: BLOOD SPECIMENOrdering Facility: [facility] Address: [address] [place] [address] Performed By: #### 2 4323-8, 2776-06, ####[facility] LABCLIA [id number] [facility] [address] [place] [address] [place] AST [Catalytic activity/Vol] 31 U/L Normal 13-35 [facility] Comment on above: Order Comment: Speci men Type: BLOOD SPECIMENOrdering Facility: [facility] Address: [address] [place] [address] Performed By: #### 2 4323-8, 2776-06, ####[facility]CLIA [id number] [address] [address] [place] Bilirubin [Mass/Vol] 0.5 mg/dL Normal 0.2-1.3 [facility] Comment on above: Order Comment: Speci men Type: BLOOD SPECIMENOrdering Facility: [facility] Address: [address] [place], [place] [address] Performed By: #### 2 4323-8, 2776-06, ####[facility]CLIA [id number] [address] [address] [place] Calcium [Mass/Vol] 9.2 mg/dL Normal 8.5-10.2 [facility] Comment on above: Order Comment: Speci men Type: BLOOD SPECIMENOrdering Facility: [facility] Address: [address] [place] [address] Performed By: #### 2 4323-8, 2776-06, ####[facility]CLIA [id number] [address] [address] [place] Chloride [Moles/Vol] 101 mmol/L Normal 98-107 [facility] Comment on above: Order Comment: Speci men Type: BLOOD SPECIMENOrdering Facility: [facility] Address: [address] [place] [address] Performed By: #### 2 4323-8, 2776-06, ####[facility]CLIA [id number] [address] [address] [place] CO2 [Moles/Vol] 24 mmol/L Normal 22-30 [facility] Comment on above: Order Comment: Speci men Type: BLOOD SPECIMENOrdering Facility: [facility] Address: [address] [place] [address] Performed By: #### 2 4323-8, 2777, ####[facility] [id number] [address] [address] [place] Creatinine [Mass/Vol] 0.89 mg/dL Normal 0.58-0.96 [facility] Comment on above: Order Comment: Dora men Type: BLOOD SPECIMENOrdering Facility: [facility] Address: [address] [place] [address] Performed By: #### 2 4323-8, 27712-25, ####[facility] [id number] [place] [address] [place] Creatinine and Glomerular filtration rate.predicted panel (S/P/Bld) 84 mL/min/1.73m??? Normal >=60 [facility] Comment on above: Order Comment: Dora finch Type: BLOOD SPECIMENOrdering Facility: [facility] Address: [address] [place] [address] Result Comment: Zeny mated Glomerular Filtration Rate [...] actual GFR. Performed By: #### 2 4323-8, 2776-06, ####[facility] [id number] [address] [address] [place] Glucose [Mass/Vol] 105 mg/dL High 74-99 [facility] Comment on above: Order Comment: Dora finch Type: BLOOD SPECIMENOrdering Facility: [facility] Address: [address] [place] [id number] Result Comment: The [place] Diabetes Association (ADA) provides guidance for cutoff [...] Standards of Medical Care in Diabetes 2016, [place] [employer]. Diabetes Care. 2016.39(Suppl 1). Performed By: #### 2 4323-8, 2776-06, ####[facility] [id number] [place] [address] [place] Potassium [Moles/Vol] 3.9 mmol/L Normal 3.7-5.1 [facility] Comment on above: Order Comment: Speci men Type: BLOOD SPECIMENOrdering Facility: [facility] Address: [address] [place] [address] Performed By: #### 2 4323-8, 2776-06, ####[facility] [id number] [place] [address] [place] Protein [Mass/Vol] 6.4 g/dL Normal 6.3-8.0 [facility] Comment on above: Order Comment: Speci men Type: BLOOD SPECIMENOrdering Facility: [facility] Address: [address] [place] [address] Performed By: #### 2 4323-8, 27712-25, ####[facility] [id number] [place] [address] [place] Sodium [Moles/Vol] 137 mmol/L Normal 136-144 [facility] Comment on above: Order Comment: Speci men Type: BLOOD SPECIMENOrdering Facility: [facility] Address: [address] [place], [place] [address] Performed By: #### 2 4323-8, 7-1, ####[facility] [id number] [address] [address] [place] Urea nitrogen [Mass/Vol] 17 mg/dL Normal 7-21 [facility] Comment on above: Order Comment: Speci men Type: BLOOD SPECIMENOrdering Facility: [facility] Address: [address] [place] [address] Performed By: #### 2 4323-8, 2777-1, ####[facility] [id number] [place] [address] [place] Magnesium SerPl-mCncon 12-09 Magnesium [Mass/Vol] 1.9 mg/dL Normal 1.7-2.3 [facility] Comment on above: Order Comment: Speci men Type: BLOOD SPECIMENOrdering Facility: [facility] Address: [address] [place] [address] Performed By: #### 2 4323-8, 27771, ####[facility] [id number] [place] [address] [place] NURSING PROGon 12-09-2024 NURSING PROG Normal [facility] PTT, ANTICOAGULANT THERAPYon 12-09-2024 aPTT Coag (PPP) [Time] 64.5 s High 23.0-32.4 [facility] Comment on above: Order Comment: Speci men Type: BLOOD SPECIMENOrdering Facility: [facility] Address: [address] [place] [address] Performed By: #### P TTAC ####[facility] [id number] [place] [address] [place] aPTT Coag (PPP) [Time] 44.6 s High 23.0-32.4 [facility] Comment on above: Order Comment: Speci men Type: BLOOD SPECIMENOrdering Facility: [facility] Address: [address] [place] [address] Performed By: #### P TTAC ####[facility] [id number] [place] [address] [place] aPTT Coag (PPP) [Time] 87.9 s High 23.0-32.4 [facility] Comment on above: Order Comment: Speci men Type: BLOOD SPECIMENOrdering Facility: [facility] Address: [address] [place] [address] Performed By: #### P TTAC ####[facility] [id number] [place] [address] [place] Phosphate SerPl-mCncon 12-09 Phosphate [Mass/Vol] 4.1 mg/dL Normal 2.7-4.8 [facility] Comment on above: Order Comment: Speci men Type: BLOOD SPECIMENOrdering Facility: [facility] Address: [address] [place] [address] Performed By: #### 2 4323-8, 2777-1, 02459-5 ####[facility] [id number] [place] [address] [place] BRIEF OP NOTon 12-08-2024 BRIEF OP NOT Normal [facility] CBC panel Auto (Bld)on 12-08 Erythrocyte distribution width (RBC) [Ratio] 20.5 % High 11.5-15.0 [facility] Comment on above: Order Comment: Speci men Type: BLOOD SPECIMENOrdering Facility: [facility] Address: [address] [place] [address] Performed By: #### 5 8410-2 ####[facility] [id number] [place] [address] [place] Hematocrit (Bld) [Volume fraction] 27.6 % Low 36.0-46.0 [facility] Comment on above: Order Comment: Speci men Type: BLOOD SPECIMENOrdering Facility: [facility] Address: [address] [place] [address] Performed By: #### 5 8410-2 ####[facility] LABCLIA [id number] [place] [address] [place] Hemoglobin (Bld) [Mass/Vol] 8.4 g/dL Low 11.5-15.5 [facility] Comment on above: Order Comment: Speci men Type: BLOOD SPECIMENOrdering Facility: [facility] Address: [address] [place] [address] Performed By: #### 5 8410-2 ####[facility] [id number] [place] [address] [place] MCH (RBC) [Entitic mass] 25.9 pg Low 26.0-34.0 [facility] Comment on above: Order Comment: Speci men Type: BLOOD SPECIMENOrdering Facility: [facility] Address: [address] [place] [address] Performed By: #### 5 8410-2 ####[facility] [id number] [place] [address] [place] MCHC (RBC) [Mass/Vol] 30.4 g/dL Low 30.5-36.0 [facility] Comment on above: Order Comment: Speci men Type: BLOOD SPECIMENOrdering Facility: [facility] Address: [address] [place] [address] Performed By: #### 5 8410-2 ####[facility]CLIA [id number] [place] [address] [place] MCV (RBC) [Entitic vol] 85.2 fL Normal 80.0-100.0 [facility] Comment on above: Order Comment: Speci men Type: BLOOD SPECIMENOrdering Facility: [facility] Address: [address] [place] [address] Performed By: #### 5 8410-2 ####[facility]CLIA [id number] [place] [address] [place] Nucleated RBC (Bld) [#/Vol] 0.02 10*3/uL High <0.01 [facility] Comment on above: Order Comment: Speci men Type: BLOOD SPECIMENOrdering Facility: [facility] Address: [address] [place] [address] Performed By: #### 5 8410-2 ####[facility]CLIA [id number] [place] [address] [place] Platelet mean volume (Bld) [Entitic vol] 10.3 fL Normal 9.0-12.7 [facility] Comment on above: Order Comment: Speci men Type: BLOOD SPECIMENOrdering Facility: [facility] Address: [address] [place] [address] Performed By: #### 5 8410-2 ####[facility] [id number] [place] [address] [place] Platelets (Bld) [#/Vol] 423 10*3/uL High 150-400 [facility] Comment on above: Order Comment: Speci men Type: BLOOD SPECIMENOrdering Facility: [facility] Address: [address] [place] [address] Performed By: #### 5 8410-2 ####[facility] [id number] [place] [address] [place] RBC (Bld) [#/Vol] 3.24 10*6/uL Low 3.90-5.20 [facility] Comment on above: Order Comment: Speci men Type: BLOOD SPECIMENOrdering Facility: [facility] Address: [address] [place] [address] Performed By: #### 5 8410-2 ####[facility]CLIA [id number] [place] [address] [place] WBC (Bld) [#/Vol] 7.37 10*3/uL Normal 3.70-11.00 [facility] Comment on above: Order Comment: Speci men Type: BLOOD SPECIMENOrdering Facility: [facility] Address: [address] [place] [address] Performed By: #### 5 8410-2 ####[facility]CLIA [id number] [place] [id number] [place] CONSULT PROGon 12-08-2024 CONSULT PROG Normal [facility] CONSULT PROG Normal [facility] Comprehensive metabolic 2000 panelon 12-08-2024 Albumin [Mass/Vol] 3.2 g/dL Low 3.9-4.9 [facility] Comment on above: Order Comment: Speci men Type: BLOOD SPECIMENOrdering Facility: [facility] Address: [address] [place] [address] Performed By: #### 2 4323-8, , 2776- ####[facility] LABCLIA [id number] [place] [id number] [place] ALP [Catalytic activity/Vol] 163 U/L High 34-123 [facility] Comment on above: Order Comment: Speci men Type: BLOOD SPECIMENOrdering Facility: [facility] Address: [address] [place] [address] Performed By: #### 2 4323-8, , 2776-06 ####[facility]CLIA [id number] [place] [address] [place] ALT [Catalytic activity/Vol] 41 U/L High 7-38 [facility] Comment on above: Order Comment: Speci men Type: BLOOD SPECIMENOrdering Facility: [facility] Address: [address] [place] [address] Performed By: #### 2 4323-8, , 2776- ####[facility]CLIA [id number] [place] [address] [place] Anion gap [Moles/Vol] 14 mmol/L Normal 8-15 [facility] Comment on above: Order Comment: Speci men Type: BLOOD SPECIMENOrdering Facility: [facility] Address: [address] [place] [address] Performed By: #### 2 4323-8, , 2776-06 ####[facility]CLIA [id number] [place] [address] [place] AST [Catalytic activity/Vol] 30 U/L Normal 13-35 [facility] Comment on above: Order Comment: Speci men Type: BLOOD SPECIMENOrdering Facility: [facility] Address: [address] [place] [address] Performed By: #### 2 4323-8, , 2776-06 ####[facility] LABCLIA [id number] [place] [address] [place] Bilirubin [Mass/Vol] 0.4 mg/dL Normal 0.2-1.3 [facility] Comment on above: Order Comment: Speci men Type: BLOOD SPECIMENOrdering Facility: [facility] Address: [address] [place] [address] Performed By: #### 2 4323-8, , 2776-06 ####[facility]CLIA [id number] [place] [address] [place] Calcium [Mass/Vol] 9.3 mg/dL Normal 8.5-10.2 [facility] Comment on above: Order Comment: Speci men Type: BLOOD SPECIMENOrdering Facility: [facility] Address: [address] [place], [place] [address] Performed By: #### 2 4323-8, , 2776-06 ####[facility]CLIA [id number] [facility] [address] [address] [place] Chloride [Moles/Vol] 101 mmol/L Normal 98-107 [facility] Comment on above: Order Comment: Speci men Type: BLOOD SPECIMENOrdering Facility: [facility] Address: [address] [place], [place] [address] Performed By: #### 2 4323-8, , 2776-06 ####[facility]CLIA [id number] [address] [address] [place] CO2 [Moles/Vol] 22 mmol/L Normal 22-30 [facility] Comment on above: Order Comment: Speci men Type: BLOOD SPECIMENOrdering Facility: [facility] Address: [address] [place] [address] Performed By: #### 2 4323-8, , 2776-06 ####[facility]CLIA [id number] [address] [address] [place] Creatinine [Mass/Vol] 0.91 mg/dL Normal 0.58-0.96 [facility] Comment on above: Order Comment: Speci men Type: BLOOD SPECIMENOrdering Facility: [facility] Address: [address] [place] [address] Performed By: #### 2 4323-8, , 2776-06 ####[facility]CLIA [id number] [address] [address] [place] Creatinine and Glomerular filtration rate.predicted panel (S/P/Bld) 81 mL/min/1.73m??? Normal >=60 [facility] Comment on above: Order Comment: Speci men Type: BLOOD SPECIMENOrdering Facility: [facility] Address: [address] [place], [place] [address] Result Comment: Zeny mated Glomerular Filtration Rate [...] Performed By: #### 2 4323-8, , 2776-06 ####[facility]CLIA [id number] [address] [address] [place] Glucose [Mass/Vol] 112 mg/dL High 74-99 [facility] Comment on above: Order Comment: Speci men Type: BLOOD SPECIMENOrdering Facility: [facility] Address: [address] [place] [address] Result Comment: The [place] Diabetes Association (ADA) provides guidance for cutoff [...] Standards of Medical Care in Diabetes 2016, [place] [employer]. Diabetes Care. 2016.39(Suppl 1). Performed By: #### 2 4323-8, , 2776-06 ####[facility]CLIA [id number] [address] [address] [place] Potassium [Moles/Vol] 4.0 mmol/L Normal 3.7-5.1 [facility] Comment on above: Order Comment: Speci men Type: BLOOD SPECIMENOrdering Facility: [facility] Address: [address] [address] Performed By: #### 2 4323-8, , 2776-06 ####[facility] [id number] [address] [address] [place] Protein [Mass/Vol] 6.8 g/dL Normal 6.3-8.0 [facility] Comment on above: Order Comment: Speci men Type: BLOOD SPECIMENOrdering Facility: [facility] Address: [address] [place] [address] Performed By: #### 2 4323-8, 35635-0, 2777-1 ####[facility] [id number] [place] [address] [place] Sodium [Moles/Vol] 137 mmol/L Normal 136-144 [facility] Comment on above: Order Comment: Speci men Type: BLOOD SPECIMENOrdering Facility: [facility] Address: [address] [place] [address] Performed By: #### 2 4323-8, 19616-6, 2777-1 ####[facility] [id number] [place] [address] [place] Urea nitrogen [Mass/Vol] 14 mg/dL Normal 7-21 [facility] Comment on above: Order Comment: Speci men Type: BLOOD SPECIMENOrdering Facility: [facility] Address: [address] [place] [address] Performed By: #### 2 4323-8, 94577-1, 2777-1 ####[facility] [id number] [place] [address] [place] Fact Xa PPP-aCncon 5 Coagulation factor X activated act Coag Qn (PPP) 0.76 IU/mL High <0.10 [facility] Comment on above: Order Comment: Speci men Type: BLOOD SPECIMENOrdering Facility: [facility] Address: [address] [place] [address] Result Comment: The recommended therapeutic range for treatment of venous and arterial thrombosis with intravenous unfractionated heparin is an anti Xa activity level of 0.3 to 0.7 IU/mL. In patients with concomitant therapy with thrombolytic agents and/or platelet glycoprotein IIb/IIIa antagonists, the recommended therapeutic range is an anti Xa activity level of 0.2 to 0.5 IU/mL. Performed By: #### 3 217-7 ####[facility] [id number] [place] [address] [place] Coagulation factor X activated act Coag Qn (PPP) 0.55 IU/mL High <0.10 [facility] Comment on above: Order Comment: Dora finch Type: BLOOD SPECIMENOrdering Facility: [facility] Address: [address] [place] [address] Result Comment: The recommended therapeutic range for treatment of venous and arterial thrombosis with intravenous unfractionated heparin is an anti Xa activity level of 0.3 to 0.7 IU/mL. In patients with concomitant therapy with thrombolytic agents and/or platelet glycoprotein IIb/IIIa antagonists, the recommended therapeutic range is an anti Xa activity level of 0.2 to 0.5 IU/mL. Performed By: #### 3 217-7, PTTAC ####[facility] [id number] [place] [address] [place] IR PICC INSERT PHYSICIANon 0 12-08-2024 IR PICC INSERT PHYSICIAN Normal [facility] Magnesium SerPl-mCncon 12-08 Magnesium [Mass/Vol] 1.9 mg/dL Normal 1.7-2.3 [facility] Comment on above: Order Comment: Dora finch Type: BLOOD SPECIMENOrdering Facility: [facility] Address: [address] [place] [address] Performed By: #### 2 4323-8, 85320-9, 2777-1 ####[facility] LABCLIA [id number] [place] [address] [place] PTT, ANTICOAGULANT THERAPYon 12-08-2024 aPTT Coag (PPP) [Time] 37.0 s High 23.0-32.4 [facility] Comment on above: Order Comment: Dora finch Type: BLOOD SPECIMENOrdering Facility: [facility] Address: [address] [place] [address] Performed By: #### P TTAC ####[facility] LABCLIA [id number] [address] [place] aPTT Coag (PPP) [Time] 94.6 s High 23.0-32.4 [facility] Comment on above: Order Comment: Speci men Type: BLOOD SPECIMENOrdering Facility: [facility] Address: [address] [place], [place] [address] Performed By: #### P TTAC ####[facility] LABCLIA [id number] [place] [id number] [place] aPTT Coag (PPP) [Time] 88.0 s High 23.0-32.4 [facility] Comment on above: Order Comment: Speci men Type: BLOOD SPECIMENOrdering Facility: [facility] Address: [address] [place] [address] Performed By: #### P TTAC ####[facility] LABIA [id number] [address] [place] aPTT Coag (PPP) [Time] 56.3 s High 23.0-32.4 [facility] Comment on above: Order Comment: Speci men Type: BLOOD SPECIMENOrdering Facility: [facility] Address: [address] [place] [address] Performed By: #### 3 217-7, PTTAC ####[facility] LABIA [id number] [place] [id number] [place] Phosphate SerPl-mCncon 12-08 Phosphate [Mass/Vol] 4.5 mg/dL Normal 2.7-4.8 [facility] Comment on above: Order Comment: Speci men Type: BLOOD SPECIMENOrdering Facility: [facility] Address: [address] [place] [address] Performed By: #### 2 4323-8, 05854-3, 2777-1 ####[facility] LABIA [id number] [place] [id number] [place] ALLIED HEALTHon 12-07-2024 ALLIED HEALTH Normal [facility] CBC panel Auto (Bld)on 06-13 -2025 Erythrocyte distribution width (RBC) [Ratio] 20.2 % High 11.5-15.0 [facility] Comment on above: Order Comment: Speci men Type: BLOOD SPECIMENOrdering Facility: [facility] Address: [address] [place] [address] Performed By: #### 5 8410-2 ####[facility] LABIA [id number] [place] [address] [place] Hematocrit (Bld) [Volume fraction] 28.3 % Low 36.0-46.0 [facility] Comment on above: Order Comment: Speci men Type: BLOOD SPECIMENOrdering Facility: [facility] Address: [address] [place] [address] Performed By: #### 5 8410-2 ####[facility] LABIA [id number] [place] [address] [place] Hemoglobin (Bld) [Mass/Vol] 9.0 g/dL Low 11.5-15.5 [facility] Comment on above: Order Comment: Speci men Type: BLOOD SPECIMENOrdering Facility: [facility] Address: [address] [place] [address] Performed By: #### 5 8410-2 ####[facility] LABIA [id number] [place] [address] [place] MCH (RBC) [Entitic mass] 26.5 pg Normal 26.0-34.0 [facility] Comment on above: Order Comment: Speci men Type: BLOOD SPECIMENOrdering Facility: [facility] Address: [address] [place] [address] Performed By: #### 5 8410-2 ####[facility] LABIA [id number] [place] [address] [place] MCHC (RBC) [Mass/Vol] 31.8 g/dL Normal 30.5-36.0 [facility] Comment on above: Order Comment: Speci men Type: BLOOD SPECIMENOrdering Facility: [facility] Address: [address] [place] [address] Performed By: #### 5 8410-2 ####[facility] LABIA [id number] [place] [address] [place] MCV (RBC) [Entitic vol] 83.2 fL Normal 80.0-100.0 [facility] Comment on above: Order Comment: Speci men Type: BLOOD SPECIMENOrdering Facility: [facility] Address: [address] [place] [address] Performed By: #### 5 8410-2 ####[facility] LABIA [id number] [place] [address] [place] Nucleated RBC (Bld) [#/Vol] 10*3/uL Normal <0.01 [facility] Comment on above: Order Comment: Speci men Type: BLOOD SPECIMENOrdering Facility: [facility] Address: [address] [place] [address] Performed By: #### 5 8410-2 ####[facility] LABIA [id number] [place] [address] [place] Platelet mean volume (Bld) [Entitic vol] 10.0 fL Normal 9.0-12.7 [facility] Comment on above: Order Comment: Speci men Type: BLOOD SPECIMENOrdering Facility: [facility] Address: [address] [place] [address] Performed By: #### 5 8410-2 ####[facility] LABCLIA [id number] [place] [address] [place] Platelets (Bld) [#/Vol] 414 10*3/uL High 150-400 [facility] Comment on above: Order Comment: Speci men Type: BLOOD SPECIMENOrdering Facility: [facility] Address: [address] [place] [address] Performed By: #### 5 8410-2 ####[facility] LABCLIA [id number] [address] [address] [place] RBC (Bld) [#/Vol] 3.40 10*6/uL Low 3.90-5.20 [facility] Comment on above: Order Comment: Speci men Type: BLOOD SPECIMENOrdering Facility: [facility] Address: [address] [place] [address] Performed By: #### 5 8410-2 ####[facility] LABCLIA [id number] [place] [address] [place] WBC (Bld) [#/Vol] 7.16 10*3/uL Normal 3.70-11.00 [facility] Comment on above: Order Comment: Speci men Type: BLOOD SPECIMENOrdering Facility: [facility] Address: [address] [place] [address] Performed By: #### 5 8410-2 ####[facility] LABCLIA [id number] [place] [address] [place] CONSULT PROGon 12-07-2024 CONSULT PROG Normal [facility] Comprehensive metabolic 2000 panelon 12-07-2024 Albumin [Mass/Vol] 3.3 g/dL Low 3.9-4.9 [facility] Comment on above: Order Comment: Speci men Type: BLOOD SPECIMENOrdering Facility: [facility] Address: [address] [place] [address] Performed By: #### 2 777-1, , 75967-6 ####[facility] LABCLIA [id number] [address] [address] [place] ALP [Catalytic activity/Vol] 185 U/L High 34-123 [facility] Comment on above: Order Comment: Speci men Type: BLOOD SPECIMENOrdering Facility: [facility] Address: [address] [place] [address] Performed By: #### 2 777-1, , 05194-4 ####[facility] LABCLIA [id number] [address] [place] [address] [place] ALT [Catalytic activity/Vol] 53 U/L High 7-38 [facility] Comment on above: Order Comment: Speci men Type: BLOOD SPECIMENOrdering Facility: [facility] Address: [address] [place] [address] Performed By: #### 2 777-1, , ####[facility] LABCLIA [id number] [address] [place] [address] [place] Anion gap [Moles/Vol] 16 mmol/L High 8-15 [facility] Comment on above: Order Comment: Speci men Type: BLOOD SPECIMENOrdering Facility: [facility] Address: [address] [place] [address] Performed By: #### 2 777-1, , ####[facility] LABCLIA [id number] [address] [place] [address] [place] AST [Catalytic activity/Vol] 40 U/L High 13-35 [facility] Comment on above: Order Comment: Speci men Type: BLOOD SPECIMENOrdering Facility: [facility] Address: [address] [place] [address] Performed By: #### 2 777-1, , ####[facility] LABCLIA [id number] [address] [place] [address] [place] Bilirubin [Mass/Vol] 0.6 mg/dL Normal 0.2-1.3 [facility] Comment on above: Order Comment: Speci men Type: BLOOD SPECIMENOrdering Facility: [facility] Address: [address] [place] [address] Performed By: #### 2 777-1, , ####[facility] LABCLIA [id number] [address] [place] [address] [place] Calcium [Mass/Vol] 9.0 mg/dL Normal 8.5-10.2 [facility] Comment on above: Order Comment: Speci men Type: BLOOD SPECIMENOrdering Facility: [facility] Address: [address] [place] [address] Performed By: #### 2 777-1, , ####[facility] LABCLIA [id number] [facility] [address] [place] [address] [place] Chloride [Moles/Vol] 101 mmol/L Normal 98-107 [facility] Comment on above: Order Comment: Speci men Type: BLOOD SPECIMENOrdering Facility: [facility] Address: [address] [place] [address] Performed By: #### 2 777-1, , ####[facility] LABCLIA [id number] [facility] [place] [id number] [place] CO2 [Moles/Vol] 21 mmol/L Low 22-30 [facility] Comment on above: Order Comment: Speci men Type: BLOOD SPECIMENOrdering Facility: [facility] Address: [address] [place] [address] Performed By: #### 2 777-1, , ####[facility] LABCLIA [id number] [facility] [address] [place] [address] [place] Creatinine [Mass/Vol] 1.04 mg/dL High 0.58-0.96 [facility] Comment on above: Order Comment: Speci men Type: BLOOD SPECIMENOrdering Facility: [facility] Address: [address] [place] [address] Performed By: #### 2 777-1, , ####[facility] LABCLIA [id number] [facility] [address] [place] [address] [place] Creatinine and Glomerular filtration rate.predicted panel (S/P/Bld) 69 mL/min/1.73m??? Normal >=60 [facility] Comment on above: Order Comment: Dora finch Type: BLOOD SPECIMENOrdering Facility: [facility] Address: [address] [place] [address] Result Comment: Zeny mated Glomerular Filtration Rate [...] GFR. Performed By: #### 2 777-1, , ####[facility] [id number] [address] [address] [place] Glucose [Mass/Vol] 178 mg/dL High 74-99 [facility] Comment on above: Order Comment: Dora finch Type: BLOOD SPECIMENOrdering Facility: [facility] Address: [address] [place] [address] Result Comment: The [place] [employer] (ADA) provides guidance for cutoff [...] Standards of Medical Care in Diabetes 2016, [place] [employer]. Diabetes Care. 2016.39(Suppl 1). Performed By: #### 2 777-1, , ####[facility] LABIA [id number] [address] [address] [place] Potassium [Moles/Vol] 3.3 mmol/L Low 3.7-5.1 [facility] Comment on above: Order Comment: Speci men Type: BLOOD SPECIMENOrdering Facility: [facility] Address: [address] [place], [place] [address] Performed By: #### 2 777-1, , ####[facility] LABCLIA [id number] [address] [address] [place] Protein [Mass/Vol] 7.0 g/dL Normal 6.3-8.0 [facility] Comment on above: Order Comment: Speci men Type: BLOOD SPECIMENOrdering Facility: [facility] Address: [address] [place] [address] Performed By: #### 2 777-1, , ####[facility] LABCLIA [id number] [address] [address] [place] Sodium [Moles/Vol] 138 mmol/L Normal 136-144 [facility] Comment on above: Order Comment: Speci men Type: BLOOD SPECIMENOrdering Facility: [facility] Address: [address] [place], [place] [address] Performed By: #### 2 777-1, , ####[facility] LABIA [id number] [address] [address] [place] Urea nitrogen [Mass/Vol] 11 mg/dL Normal 7-21 [facility] Comment on above: Order Comment: Speci men Type: BLOOD SPECIMENOrdering Facility: [facility] Address: [address] [place], [place] [address] Performed By: #### 2 777-1, , ####[facility] LABIA [id number] [address] [address] [place] Fact Xa PPP-aCncon 5 Coagulation factor X activated act Coag Qn (PPP) 0.31 IU/mL High <0.10 [facility] Comment on above: Order Comment: Speci men Type: BLOOD SPECIMENOrdering Facility: [facility] Address: [address] [place] [address] Result Comment: The recommended therapeutic range for treatment of venous and arterial thrombosis with intravenous unfractionated heparin is an anti Xa activity level of 0.3 to 0.7 IU/mL. In patients with concomitant therapy with thrombolytic agents and/or platelet glycoprotein IIb/IIIa antagonists, the recommended therapeutic range is an anti Xa activity level of 0.2 to 0.5 IU/mL. Performed By: #### 3 217-7 ####[facility] [id number] [place] [address] [place] Magnesium SerPl-mCncon 12-07 Magnesium [Mass/Vol] 2.0 mg/dL Normal 1.7-2.3 [facility] Comment on above: Order Comment: Speci men Type: BLOOD SPECIMENOrdering Facility: [facility] Address: [address] [place] [address] Performed By: #### 2 777-1, 86153-0, 58617-8 ####[facility] [id number] [place] [address] [place] NUTRITIONon 12-07-2024 NUTRITION Normal [facility] PTT, ANTICOAGULANT THERAPYon 12-07-2024 aPTT Coag (PPP) [Time] 47.4 s High 23.0-32.4 [facility] Comment on above: Order Comment: Speci men Type: BLOOD SPECIMENOrdering Facility: [facility] Address: [address] [place] [address] Performed By: #### P TTAC ####[facility] [id number] [place] [address] [place] aPTT Coag (PPP) [Time] 41.6 s High 23.0-32.4 [facility] Comment on above: Order Comment: Speci men Type: BLOOD SPECIMENOrdering Facility: [facility] Address: [address] [place] [address] Result Comment: Inte rpret with caution. Sample centrifuged greater than 1 hour from collection time. According to Clinical and Laboratory Standards [place] guidelines, results could be falsely decreased due to heparin neutralization by in vitro release of platelet factor 4. Suggest correlation with clinical findings and redraw if indicated. Performed By: #### P TTAC ####[facility] LABCLIA [id number] [address] [address] [place] Phosphate SerPl-mCncon 12-07 Phosphate [Mass/Vol] 4.5 mg/dL Normal 2.7-4.8 [facility] Comment on above: Order Comment: Speci men Type: BLOOD SPECIMENOrdering Facility: [facility] Address: [address] [place] [address] Performed By: #### 2 777-1, 53201-3, 56720-1 ####[facility] LABCLIA [id number] [place] [address] [place] ALLIED HEALTHon 12-06-2024 ALLIED HEALTH Normal [facility] ALLIED HEALTH Normal [facility] ANES POSTPROC EVALon 025 ANES POSTPROC EVAL Normal [facility] ANES PRE-OPon 12-06-2024 ANES PRE-OP Normal [facility] CASE MANAGEMon 12-06-2024 CASE MANAGEM Normal [facility] CBC panel Auto (Bld)on 12-06 Erythrocyte distribution width (RBC) [Ratio] 19.8 % High 11.5-15.0 [facility] Comment on above: Order Comment: Speci men Type: BLOOD SPECIMENOrdering Facility: [facility] Address: [address] [place] [address] Performed By: #### 5 8410-2 ####[facility] LABCLIA [id number] [address] [address] [place] [facility] Hematocrit (Bld) [Volume fraction] 19.8 % Low 36.0-46.0 [facility] Comment on above: Order Comment: Speci men Type: BLOOD SPECIMENOrdering Facility: [facility] Address: [address] [place] [address] Performed By: #### 5 8410-2 ####[facility] LABCLIA [id number] [place] [address] [place] Hemoglobin (Bld) [Mass/Vol] 6.3 g/dL Low 11.5-15.5 [facility] Comment on above: Order Comment: Speci men Type: BLOOD SPECIMENOrdering Facility: [facility] Address: [address] [place] [address] Performed By: #### 5 8410-2 ####[facility] LABCLIA [id number] [place] [address] [place] MCH (RBC) [Entitic mass] 26.1 pg Normal 26.0-34.0 [facility] Comment on above: Order Comment: Speci men Type: BLOOD SPECIMENOrdering Facility: [facility] Address: [address] [place] [address] Performed By: #### 5 8410-2 ####[facility] LABCLIA [id number] [place] [address] [place] MCHC (RBC) [Mass/Vol] 31.8 g/dL Normal 30.5-36.0 [facility] Comment on above: Order Comment: Speci men Type: BLOOD SPECIMENOrdering Facility: [facility] Address: [address] [place] [address] Performed By: #### 5 8410-2 ####[facility] LABCLIA [id number] [place] [address] [place] MCV (RBC) [Entitic vol] 82.2 fL Normal 80.0-100.0 [facility] Comment on above: Order Comment: Speci men Type: BLOOD SPECIMENOrdering Facility: [facility] Address: [address] [place] [address] Performed By: #### 5 8410-2 ####[facility]CLIA [id number] [place] [address] [place] Nucleated RBC (Bld) [#/Vol] 10*3/uL Normal <0.01 [facility] Comment on above: Order Comment: Speci men Type: BLOOD SPECIMENOrdering Facility: [facility] Address: [address] [place] [address] Performed By: #### 5 8410-2 ####[facility] LABIA [id number] [place] [address] [place] Platelet mean volume (Bld) [Entitic vol] 8.9 fL Low 9.0-12.7 [facility] Comment on above: Order Comment: Speci men Type: BLOOD SPECIMENOrdering Facility: [facility] Address: [address] [place] [address] Performed By: #### 5 8410-2 ####[facility] LABIA [id number] [place] [address] [place] Platelets (Bld) [#/Vol] 496 10*3/uL High 150-400 [facility] Comment on above: Order Comment: Speci men Type: BLOOD SPECIMENOrdering Facility: [facility] Address: [address] [place] [address] Performed By: #### 5 8410-2 ####[facility]IA [id number] [place] [address] [place] RBC (Bld) [#/Vol] 2.41 10*6/uL Low 3.90-5.20 [facility] Comment on above: Order Comment: Speci men Type: BLOOD SPECIMENOrdering Facility: [facility] Address: [address] [place] [address] Performed By: #### 5 8410-2 ####[facility]IA [id number] [place] [address] [place] WBC (Bld) [#/Vol] 8.40 10*3/uL Normal 3.70-11.00 [facility] Comment on above: Order Comment: Speci men Type: BLOOD SPECIMENOrdering Facility: [facility] Address: [address] [place] [address] Performed By: #### 5 8410-2 ####[facility]IA [id number] [place] [address] [place] Erythrocyte distribution width (RBC) [Ratio] 19.0 % High 11.5-15.0 [facility] Comment on above: Order Comment: Speci men Type: BLOOD SPECIMENOrdering Facility: [facility] Address: [address] [place] [address] Performed By: #### 5 8410-2 ####[facility]IA [id number] [place] [address] [place] Hematocrit (Bld) [Volume fraction] 29.1 % Low 36.0-46.0 [facility] Comment on above: Order Comment: Speci men Type: BLOOD SPECIMENOrdering Facility: [facility] Address: [address] [place] [address] Performed By: #### 5 8410-2 ####[facility]IA [id number] [place] [address] [place] Hemoglobin (Bld) [Mass/Vol] 9.1 g/dL Low 11.5-15.5 [facility] Comment on above: Order Comment: Speci men Type: BLOOD SPECIMENOrdering Facility: [facility] Address: [address] [place] [address] Performed By: #### 5 8410-2 ####[facility] [id number] [place] [address] [place] MCH (RBC) [Entitic mass] 25.7 pg Low 26.0-34.0 [facility] Comment on above: Order Comment: Speci men Type: BLOOD SPECIMENOrdering Facility: [facility] Address: [address] [place] [address] Performed By: #### 5 8410-2 ####[facility]IA [id number] [place] [address] [place] MCHC (RBC) [Mass/Vol] 31.3 g/dL Normal 30.5-36.0 [facility] Comment on above: Order Comment: Speci men Type: BLOOD SPECIMENOrdering Facility: [facility] Address: [address] [place] [address] Performed By: #### 5 8410-2 ####[facility] [id number] [place] [address] [place] MCV (RBC) [Entitic vol] 82.2 fL Normal 80.0-100.0 [facility] Comment on above: Order Comment: Speci men Type: BLOOD SPECIMENOrdering Facility: [facility] Address: [address] [place] [address] Performed By: #### 5 8410-2 ####[facility] [id number] [place] [address] [place] Nucleated RBC (Bld) [#/Vol] 10*3/uL Normal <0.01 [facility] Comment on above: Order Comment: Speci men Type: BLOOD SPECIMENOrdering Facility: [facility] Address: [address] [place] [address] Performed By: #### 5 8410-2 ####[facility] [id number] [place] [address] [place] Platelet mean volume (Bld) [Entitic vol] 9.3 fL Normal 9.0-12.7 [facility] Comment on above: Order Comment: Speci men Type: BLOOD SPECIMENOrdering Facility: [facility] Address: [address] [place] [address] Performed By: #### 5 8410-2 ####[facility] [id number] [address] [address] [place] Platelets (Bld) [#/Vol] 474 10*3/uL High 150-400 [facility] Comment on above: Order Comment: Speci men Type: BLOOD SPECIMENOrdering Facility: [facility] Address: [address] [place] [address] Performed By: #### 5 8410-2 ####[facility] [id number] [address], [place] [address] [place] RBC (Bld) [#/Vol] 3.54 10*6/uL Low 3.90-5.20 [facility] Comment on above: Order Comment: Speci men Type: BLOOD SPECIMENOrdering Facility: [facility] Address: [address] [place] [address] Performed By: #### 5 8410-2 ####[facility] [id number] [place] [address] [place] WBC (Bld) [#/Vol] 8.80 10*3/uL Normal 3.70-11.00 [facility] Comment on above: Order Comment: Speci men Type: BLOOD SPECIMENOrdering Facility: [facility] Address: [address] [place] [address] Performed By: #### 5 8410-2 ####[facility] [id number] [place] [id number] [place] CK SerPl-cCncon 12-06-2024 CK [Catalytic activity/Vol] 9 U/L Low 42-196 [facility] Comment on above: Order Comment: Speci men Type: BLOOD SPECIMENOrdering Facility: [facility] [facility] Address: [address] [place] [address] Performed By: #### 2 157-6, 46369-0, 2777-1, 26970-9 ####[facility] LABCLIA [id number] [place] [address] [place] CONSULT PROGon 12-06-2024 CONSULT PROG Normal [facility] Comprehensive metabolic 2000 panelon 12-06-2024 Albumin [Mass/Vol] 3.3 g/dL Low 3.9-4.9 [facility] Comment on above: Order Comment: Speci men Type: BLOOD SPECIMENOrdering Facility: [facility] Address: [address] [place], [place] [address] Performed By: #### 2 157-6, 95855-5, 277-, 45035-0 ####[facility] LABCLIA [id number] [address] [address] [place] ALP [Catalytic activity/Vol] 191 U/L High 34-123 [facility] Comment on above: Order Comment: Speci men Type: BLOOD SPECIMENOrdering Facility: [facility] Address: [address] [place] [address] Performed By: #### 2 157-6, 90251-8, 277-, 38033-5 ####[facility] LABCLIA [id number] [address] [address] [place] ALT [Catalytic activity/Vol] 44 U/L High 7-38 [facility] Comment on above: Order Comment: Speci men Type: BLOOD SPECIMENOrdering Facility: [facility] Address: [address] [place], [place] [address] Performed By: #### 2 157-6, 49706-2, 277-1, 07082-5 ####[facility] LABCLIA [id number] [address] [address] [place] Anion gap [Moles/Vol] 12 mmol/L Normal 8-15 [facility] Comment on above: Order Comment: Speci men Type: BLOOD SPECIMENOrdering Facility: [facility] Address: [address] [place], [place] [address] Performed By: #### 2 157-6, 00910-2, 277-1, 43666-6 ####[facility] LABCLIA [id number] [place] [address] [place] AST [Catalytic activity/Vol] 36 U/L High 13-35 [facility] Comment on above: Order Comment: Speci men Type: BLOOD SPECIMENOrdering Facility: [facility] Address: [address] [place] [address] Performed By: #### 2 157-6, 61023-0, 2777-1, 05528-4 ####[facility] LABCLIA [id number] [place] [address] [place] Bilirubin [Mass/Vol] 0.7 mg/dL Normal 0.2-1.3 [facility] Comment on above: Order Comment: Speci men Type: BLOOD SPECIMENOrdering Facility: [facility] Address: [address] [place] [address] Performed By: #### 2 157-6, 10033-0, 277-, 92316-5 ####[facility] LABCLIA [id number] [place] [address] [place] Calcium [Mass/Vol] 8.8 mg/dL Normal 8.5-10.2 [facility] Comment on above: Order Comment: Speci men Type: BLOOD SPECIMENOrdering Facility: [facility] Address: [address] [place] [address] Performed By: #### 2 157-6, 33593-3, 277-, 87181-6 ####[facility] LABCLIA [id number] [place] [address] [place] Chloride [Moles/Vol] 102 mmol/L Normal 98-107 [facility] Comment on above: Order Comment: Speci men Type: BLOOD SPECIMENOrdering Facility: [facility] Address: [address] [place] [address] Performed By: #### 2 157-6, 13216-1, 2777-1, 12863-1 ####[facility] LABCLIA [id number] [place] [address] [place] CO2 [Moles/Vol] 22 mmol/L Normal 22-30 [facility] Comment on above: Order Comment: Specsammie finch Type: BLOOD SPECIMENOrdering Facility: [facility] Address: [address] [place], [place] [address] Performed By: #### 2 157-6, 85846-9, 2777-, 64604-1 ####[facility] LABCLIA [id number] [place] [address] [place] Creatinine [Mass/Vol] 0.95 mg/dL Normal 0.58-0.96 [facility] Comment on above: Order Comment: Florii men Type: BLOOD SPECIMENOrdering Facility: [facility] Address: [address] [place] [address] Performed By: #### 2 157-6, 90702-4, 2776-06, ####[facility] [id number] [place] [address] [place] Creatinine and Glomerular filtration rate.predicted panel (S/P/Bld) 77 mL/min/1.73m??? Normal >=60 [facility] Comment on above: Order Comment: Dora finch Type: BLOOD SPECIMENOrdering Facility: [facility] Address: [address] [place] [address] Result Comment: Zeny mated Glomerular Filtration Rate [...] actual GFR. Performed By: #### 2 157-6, 81967-9, 2777-1, 38984-8 ####[facility] LABCLIA [id number] [address] [address] [place] Glucose [Mass/Vol] 136 mg/dL High 74-99 [facility] Comment on above: Order Comment: Speci men Type: BLOOD SPECIMENOrdering Facility: [facility] Address: [address] [place] [address] Result Comment: The [place] [employer] (ADA) provides guidance for cutoff [...] Standards of Medical Care in Diabetes 2016, [place] [employer]. Diabetes Care. 2016.39(Suppl 1). Performed By: #### 2 157-6, 56840-9, 2777-, 62041-0 ####[facility] LABCLIA [id number] [place] [address] [place] Potassium [Moles/Vol] 3.8 mmol/L Normal 3.7-5.1 [facility] Comment on above: Order Comment: Dora finch Type: BLOOD SPECIMENOrdering Facility: [facility] Address: [address] [place] [address] Performed By: #### 2 157-6, 07390-4, 2777-, 54347-8 ####[facility] LABCLIA [id number] [place] [address] [place] Protein [Mass/Vol] 6.6 g/dL Normal 6.3-8.0 [facility] Comment on above: Order Comment: Speci men Type: BLOOD SPECIMENOrdering Facility: [facility] Address: [address] [place] [address] Performed By: #### 2 157-6, 02465-4, 2777-1, 73580-9 ####[facility] LABCLIA [id number] [place] [address] [place] Sodium [Moles/Vol] 136 mmol/L Normal 136-144 [facility] Comment on above: Order Comment: Florii stef Type: BLOOD SPECIMENOrdering Facility: [facility] Address: [address] [place] [address] Performed By: #### 2 157-6, 51251-1, 2777-1, 27162-6 ####[facility] LABCLIA [id number] [place] [address] [place] Urea nitrogen [Mass/Vol] 12 mg/dL Normal 7-21 [facility] Comment on above: Order Comment: Speci men Type: BLOOD SPECIMENOrdering Facility: [facility] Address: [address] [place] [address] Performed By: #### 2 157-6, 35492-6, 2777-1, 58811-0 ####[facility] LABIA [id number] [place] [address] [place] Fact Xa PPP-aCncon 5 Coagulation factor X activated act Coag Qn (PPP) 0.64 IU/mL High <0.10 [facility] Comment on above: Order Comment: Dora finch Type: BLOOD SPECIMENOrdering Facility: [facility] Address: [address] [place] [address] Result Comment: The recommended therapeutic range for treatment of venous and arterial thrombosis with intravenous unfractionated heparin is an anti Xa activity level of 0.3 to 0.7 IU/mL. In patients with concomitant therapy with thrombolytic agents and/or platelet glycoprotein IIb/IIIa antagonists, the recommended therapeutic range is an anti Xa activity level of 0.2 to 0.5 IU/mL. Performed By: #### 3 217-7 ####[facility] LABCLIA [id number] [place] [address] [place] Coagulation factor X activated act Coag Qn (PPP) 0.48 IU/mL High <0.10 [facility] Comment on above: Order Comment: Speci men Type: BLOOD SPECIMENOrdering Facility: [facility] Address: [address] [place] [address] Result Comment: The recommended therapeutic range for treatment of venous and arterial thrombosis with intravenous unfractionated heparin is an anti Xa activity level of 0.3 to 0.7 IU/mL. In patients with concomitant therapy with thrombolytic agents and/or platelet glycoprotein IIb/IIIa antagonists, the recommended therapeutic range is an anti Xa activity level of 0.2 to 0.5 IU/mL. Performed By: #### 3 217-7 ####[facility] LABCLIA [id number] [place] [address] [place] HISTORY PHYSICALon HISTORY PHYSICAL Normal [facility] Magnesium SerPl-mCncon 12-06 Magnesium [Mass/Vol] 1.5 mg/dL Low 1.7-2.3 [facility] Comment on above: Order Comment: Dora finch Type: BLOOD SPECIMENOrdering Facility: [facility] Address: [address] [place] [address] Performed By: #### 2 157-6, 97347-4, 2777-1, 67698-9 ####[facility] LABIA [id number] [place] [address] [place] NUTRITIONon 12-06-2024 NUTRITION Normal [facility] PT EDon 12-06-2024 PT ED Normal [facility] PT panel Coag (PPP)on 2024 INR Coag (PPP) [Relative time] 1.1 {INR} Normal 0.9-1.3 [facility] Comment on above: Order Comment: Dora finch Type: BLOOD SPECIMENOrdering Facility: [facility] Address: [address] [place] [address] Result Comment: Yamileth min K Antagonist (VKA) Therapeutic Range: INR 2 to 3 (Target INR of 2.5)Note: For patients treated with VKA drugs, such as warfarin, the [employer] 2012 Guideline recommends [...] al. Chest 2012, 141:7S-47SNishimura RA, et al. [facility] 2017, 70: 252-289 Performed By: #### 1 4979-9, 21365-6 ####[facility] [id number] [place] [address] [place] PT Coag (PPP) [Time] 11.9 s Normal 9.7-13.0 [facility] Comment on above: Order Comment: Dora finch Type: BLOOD SPECIMENOrdering Facility: [facility] Address: [address] [place] [address] Performed By: #### 1 4979-9, 15731-5 ####[facility] [id number] [place] [address] [place] PTT, ANTICOAGULANT THERAPYon 12-06-2024 aPTT Coag (PPP) [Time] 58.4 s High 23.0-32.4 [facility] Comment on above: Order Comment: Dora finch Type: BLOOD SPECIMENOrdering Facility: [facility] Address: [address] [place] [address] Performed By: #### P TTAC ####[facility] [id number] [place] [address] [place] Phosphate SerPl-mCncon 12-06 Phosphate [Mass/Vol] 2.8 mg/dL Normal 2.7-4.8 [facility] Comment on above: Order Comment: Dora finch Type: BLOOD SPECIMENOrdering Facility: [facility] Address: [address] [place] [address] Performed By: #### 2 157-6, 28414-3, 2777-1, 99139-2 ####[facility] LABIA [id number] [place] [address] [place] aPTT PPPon 12-06-2024 aPTT Coag (PPP) [Time] 53.0 s High 23.0-32.4 [facility] Comment on above: Order Comment: Speci men Type: BLOOD SPECIMENOrdering Facility: [facility] Address: [address] [place] [address] Performed By: #### 1 4979-9, 27200-4 ####[facility] LABIA [id number] [place] [address] [place] ALLIED HEALTHon 12-05-2024 ALLIED HEALTH Normal [facility] ANES POSTPROC EVALon 025 ANES POSTPROC EVAL Normal [facility] ANES PRE-OPon 12-05-2024 ANES PRE-OP Normal [facility] CASE MANAGEMon 12-05-2024 CASE MANAGEM Normal [facility] CBC panel Auto (Bld)on 12-05 RBC (Bld) [#/Vol] 3.55 10*6/uL Low 3.90-5.20 [facility] Comment on above: Order Comment: Speci men Type: BLOOD SPECIMENOrdering Facility: [facility] Address: [address] [place] [address] Performed By: #### 5 8410-2 ####[facility] LABIA [id number] [place] [address] [place] CONSULT PROGon 12-05-2024 CONSULT PROG Normal [facility] CONSULT PROG Normal [facility] CONSULT PROG Normal [facility] Comprehensive metabolic 2000 panelon 12-05-2024 Albumin [Mass/Vol] 3.4 g/dL Low 3.9-4.9 [facility] Comment on above: Order Comment: Speci men Type: BLOOD SPECIMENOrdering Facility: [facility] Address: [address] [place], [place] [address] Performed By: #### 2 4323-8, 2776-06, ####[facility] LABCLIA [id number] [address] [place] [address] [place] ALP [Catalytic activity/Vol] 189 U/L High 34-123 [facility] Comment on above: Order Comment: Speci men Type: BLOOD SPECIMENOrdering Facility: [facility] Address: [address] [place], [place] [address] Performed By: #### 2 4323-8, 2776-06, ####[facility] LABCLIA [id number] [place] [address] [place] ALT [Catalytic activity/Vol] 41 U/L High 7-38 [facility] Comment on above: Order Comment: Speci men Type: BLOOD SPECIMENOrdering Facility: [facility] Address: [address] [place], [place] [address] Performed By: #### 2 4323-8, 2776-06, ####[facility] LABIA [id number] [address] [address] [place] Anion gap [Moles/Vol] 12 mmol/L Normal 8-15 [facility] Comment on above: Order Comment: Speci men Type: BLOOD SPECIMENOrdering Facility: [facility] Address: [address] [place] [address] Performed By: #### 2 4323-8, 2776-06, ####[facility] LABIA [id number] [address] [address] [place] AST [Catalytic activity/Vol] 33 U/L Normal 13-35 [facility] Comment on above: Order Comment: Speci men Type: BLOOD SPECIMENOrdering Facility: [facility] Address: [address] [place] [address] Performed By: #### 2 4323-8, 2776-06, ####[facility] LABCLIA [id number] [address] [address] [place] Bilirubin [Mass/Vol] 0.8 mg/dL Normal 0.2-1.3 [facility] Comment on above: Order Comment: Speci men Type: BLOOD SPECIMENOrdering Facility: [facility] Address: [address] [place], [place] [address] Performed By: #### 2 4323-8, 2776-06, ####[facility] LABCLIA [id number] [place] [address] [place] Calcium [Mass/Vol] 9.7 mg/dL Normal 8.5-10.2 [facility] Comment on above: Order Comment: Speci men Type: BLOOD SPECIMENOrdering Facility: [facility] Address: [address] [place], [place] [address] Performed By: #### 2 4323-8, 2776-06, ####[facility] LABCLIA [id number] [place] [address] [place] Chloride [Moles/Vol] 99 mmol/L Normal 98-107 [facility] Comment on above: Order Comment: Speci men Type: BLOOD SPECIMENOrdering Facility: [facility] Address: [address] [place], [place] [address] Performed By: #### 2 4323-8, 2776-06, ####[facility] LABIA [id number] [address] [address] [place] CO2 [Moles/Vol] 25 mmol/L Normal 22-30 [facility] Comment on above: Order Comment: Speci men Type: BLOOD SPECIMENOrdering Facility: [facility] Address: [address] [place], [place] [address] Performed By: #### 2 4323-8, 2776-06, ####[facility] LABIA [id number] [address] [address] [place] Creatinine [Mass/Vol] 0.93 mg/dL Normal 0.58-0.96 [facility] Comment on above: Order Comment: Dora finch Type: BLOOD SPECIMENOrdering Facility: [facility] Address: [address] [place] [address] Performed By: #### 2 4323-8, 2776-06, ####[facility] LABIA [id number] [address] [address] [place] Creatinine and Glomerular filtration rate.predicted panel (S/P/Bld) 79 mL/min/1.73m??? Normal >=60 [facility] Comment on above: Order Comment: Dora finch Type: BLOOD SPECIMENOrdering Facility: [facility] Address: [address] [place] [address] Result Comment: Zeny mated Glomerular Filtration Rate [...] actual GFR. Performed By: #### 2 4323-8, 2776-06, ####[facility] LABIA [id number] [address] [address] [place] Glucose [Mass/Vol] 91 mg/dL Normal 74-99 [facility] Comment on above: Order Comment: Dora finch Type: BLOOD SPECIMENOrdering Facility: [facility] Address: [address] [place] [id number] Result Comment: The [place] [employer] (ADA) provides guidance for cutoff [...] Standards of Medical Care in Diabetes 2016, [place] [employer]. Diabetes Care. 2016.39(Suppl 1). Performed By: #### 2 4323-8, 2776-06, ####[facility] LABCLIA [id number] [place] [address] [place] Potassium [Moles/Vol] 3.8 mmol/L Normal 3.7-5.1 [facility] Comment on above: Order Comment: Speci men Type: BLOOD SPECIMENOrdering Facility: [facility] Address: [address] [place] [address] Performed By: #### 2 4323-8, 2776-06, ####[facility] LABIA [id number] [place] [address] [place] Protein [Mass/Vol] 6.9 g/dL Normal 6.3-8.0 [facility] Comment on above: Order Comment: Speci men Type: BLOOD SPECIMENOrdering Facility: [facility] Address: [address] [place] [address] Performed By: #### 2 4323-8, 2776-06, ####[facility] LABIA [id number] [place] [address] [place] Sodium [Moles/Vol] 136 mmol/L Normal 136-144 [facility] Comment on above: Order Comment: Speci men Type: BLOOD SPECIMENOrdering Facility: [facility] Address: [address] [place] [address] Performed By: #### 2 4323-8, 2776-06, ####[facility] LABCLIA [id number] [place] [address] [place] Urea nitrogen [Mass/Vol] 9 mg/dL Normal 7-21 [facility] Comment on above: Order Comment: Dora finch Type: BLOOD SPECIMENOrdering Facility: [facility] Address: [address] [place] [address] Performed By: #### 2 4323-8, 2777-1, 96776-8 ####[facility] LABIA [id number] [place] [address] [place] Fact Xa PPP-aCncon 5 Coagulation factor X activated act Coag Qn (PPP) <0.10 Normal <0.10 [facility] Comment on above: Order Comment: Dora finch Type: BLOOD SPECIMENOrdering Facility: [facility] Address: [address] [place] [address] Result Comment: The recommended therapeutic range for treatment of venous and arterial thrombosis with intravenous unfractionated heparin is an anti Xa activity level of 0.3 to 0.7 IU/mL. In patients with concomitant therapy with thrombolytic agents and/or platelet glycoprotein IIb/IIIa antagonists, the recommended therapeutic range is an anti Xa activity level of 0.2 to 0.5 IU/mL. Performed By: #### 3 4528-0, 50943-4, 3217-7 ####[facility] LABIA [id number] [place] [address] [place] Coagulation factor X activated act Coag Qn (PPP) 0.91 IU/mL High <0.10 [facility] Comment on above: Order Comment: Dora finch Type: BLOOD SPECIMENOrdering Facility: [facility] Address: [address] [place] [address] Result Comment: The recommended therapeutic range for treatment of venous and arterial thrombosis with intravenous unfractionated heparin is an anti Xa activity level of 0.3 to 0.7 IU/mL. In patients with concomitant therapy with thrombolytic agents and/or platelet glycoprotein IIb/IIIa antagonists, the recommended therapeutic range is an anti Xa activity level of 0.2 to 0.5 IU/mL. Performed By: #### 3 217-7 ####[facility] [id number] [place] [address] [place] Coagulation factor X activated act Coag Qn (PPP) >1.50 High <0.10 [facility] Comment on above: Order Comment: Speci men Type: BLOOD SPECIMENOrdering Facility: [facility] Address: [address] [place] [address] Result Comment: Extr ruben high heparin anti-Xa [...] 0.5 IU/mL. Performed By: #### 3 217-7, 17058-7 ####[facility] [id number] [place] [address] [place] HISTORY PHYSICALon HISTORY PHYSICAL Normal [facility] Magnesium SerPl-mCncon 12-05 Magnesium [Mass/Vol] 1.8 mg/dL Normal 1.7-2.3 [facility] Comment on above: Order Comment: Speci men Type: BLOOD SPECIMENOrdering Facility: [facility] Address: [address] [place] [address] Performed By: #### 2 4323-8, 2777-1, 21861-7 ####[facility] [id number] [place] [id number] [place] NURSING PROGon 12-05-2024 NURSING PROG Normal [facility] NURSING PROG Normal [facility] NUTRITIONon 12-05-2024 NUTRITION Normal [facility] PT panel Coag (PPP)on 2024 INR Coag (PPP) [Relative time] 1.1 {INR} Normal 0.9-1.3 [facility] Comment on above: Order Comment: Dora finch Type: BLOOD SPECIMENOrdering Facility: [facility] Address: [address] [place] [address] Result Comment: Yamileth min K Antagonist (VKA) Therapeutic Range: INR 2 to 3 (Target INR of 2.5)Note: For patients treated with VKA drugs, such as warfarin, the [employer] 2012 Guideline recommends [...] al. Chest 2012, 141:7S-47SNishimura RA, et al. [facility] 2017, 70: 252-289 Performed By: #### 3 4528-0, 74471-1, 3217-7 ####[facility] [id number] [place] [address] [place] PT Coag (PPP) [Time] 11.5 s Normal 9.7-13.0 [facility] Comment on above: Order Comment: Dora finch Type: BLOOD SPECIMENOrdering Facility: [facility] Address: [address] [place] [id number] Performed By: #### 3 4528-0, 38826-8, 3217-7 ####[facility] LABIA [id number] [place] [id number] [place] INR Coag (PPP) [Relative time] 1.2 {INR} Normal 0.9-1.3 [facility] Comment on above: Order Comment: Dora finch Type: BLOOD SPECIMENOrdering Facility: [facility] Address: [address] [place] [address] Result Comment: Yamileth min K Antagonist (VKA) Therapeutic Range: INR 2 to 3 (Target INR of 2.5)Note: For patients treated with VKA drugs, such as warfarin, the [employer] 2012 Guideline recommends [...] al. Chest 2012, 141:7S-47SNishimura RA, et al. [facility] 2017, 70: 252-289 Performed By: #### 3 217-7, 09688-0 ####[facility] [id number] [place] [address] [place] PT Coag (PPP) [Time] 12.4 s Normal 9.7-13.0 [facility] Comment on above: Order Comment: Dora finch Type: BLOOD SPECIMENOrdering Facility: [facility] Address: [address] [place] [address] Performed By: #### 3 217-7, 62195-4 ####[facility] [facility] [id number] [place] [id number] [place] Phosphate SerPl-mCncon 12-05 Phosphate [Mass/Vol] 3.9 mg/dL Normal 2.7-4.8 [facility] Comment on above: Order Comment: Dora finch Type: BLOOD SPECIMENOrdering Facility: [facility] Address: [address] [place] [address] Performed By: #### 2 4323-8, 2777-1, 15505-2 ####[facility] [id number] [place] [id number] [place] aPTT PPPon 12-05-2024 aPTT Coag (PPP) [Time] 26.2 s Normal 23.0-32.4 [facility] Comment on above: Order Comment: Speci men Type: BLOOD SPECIMENOrdering Facility: [facility] Address: [address] [place] [address] Performed By: #### 3 4528-0, 51645-1, 3217-7 ####[facility] [id number] [address] aPTT Coag (PPP) [Time] s High 23.0-32.4 [facility] Comment on above: Order Comment: Speci men Type: BLOOD SPECIMENOrdering Facility: [facility] Address: [address] [place] [address] Result Comment: Samp le checked for clot.Result rechecked. Performed By: #### 1 4979-9 ####[facility] [id number] [place] [address] [place] Culture, Blood (WB)on 2024 CUB Blood cultures x2, f rom two different sites No growth in 5 days. Normal [facility] Comment on above: Performed By: #### L 500.4050, M200.1000, L300.3900, L300.4310, L100.0100, L503.6005 ####[facility] [address] [place], [place], [id number] Urine Cultureon 11-25-2024 URC Normal [facility] Comment on above: Performed By: #### M 100.678, L400.0001, M100.2200 ####[facility] [address] [place], [address] Basic Metabolic Profile (BMP )on 11-24-2024 BUN Normal 4-19 [facility] Comment on above: Result Comment: Canc elled via OM: Order cancelled - Patient discharged Performed By: #### L 100.0100, L500.2500 ####[facility] [address] [place], [address] BUN/CRE Normal 10-20 [facility] Comment on above: Result Comment: Canc elled via OM: Order cancelled - Patient discharged Performed By: #### L 100.0100, L500.2500 ####[facility] [address] [place], [address] Calcium Normal 7.6-11.0 [facility] Comment on above: Result Comment: Canc elled via OM: Order cancelled - Patient discharged Performed By: #### L 100.0100, L500.2500 ####[facility] [address] [place], [address] CL Normal 98-108 [facility] Comment on above: Result Comment: Canc elled via OM: Order cancelled - Patient discharged Performed By: #### L 100.0100, L500.2500 ####[facility] [address] [place], [address] CO2 Normal 21.0-32.0 [facility] Comment on above: Result Comment: Canc elled via OM: Order cancelled - Patient discharged Performed By: #### L 100.0100, L500.2500 ####[facility] [address] [place], [address] CREAT,SERUM Normal 0.70-1.20 [facility] Comment on above: Result Comment: Canc elled via OM: Order cancelled - Patient discharged Performed By: #### L 100.0100, L500.2500 ####[facility] [address] [place], [address] eGFR Normal >60 [facility] Comment on above: Result Comment: Canc elled via OM: Order cancelled - Patient discharged Performed By: #### L 100.0100, L500.2500 ####[facility] [address] [place], [address] GAP Normal 5-15 [facility] Comment on above: Result Comment: Canc elled via OM: Order cancelled - Patient discharged Performed By: #### L 100.0100, L500.2500 ####[facility] [address] [place], [address] GLU Normal 70-99 [facility] Comment on above: Result Comment: Canc elled via OM: Order cancelled - Patient discharged Performed By: #### L 100.0100, L500.2500 ####[facility] [address] [place], [address] Potassium Normal 3.3-5.1 [facility] Comment on above: Result Comment: Canc elled via OM: Order cancelled - Patient discharged Performed By: #### L 100.0100, L500.2500 ####[facility] [address] [place], [address] Basic Metabolic Profile (BMP) Normal 133-145 [facility] Comment on above: Result Comment: Canc elled via OM: Order cancelled - Patient discharged Performed By: #### L 100.0100, L500.2500 ####[facility] [address] [place], [address] CBC W/Diff, Automatedon 05-3 Absolute Neut Normal 2.0-7.7 [facility] Comment on above: Result Comment: Canc elled via OM: Order cancelled - Patient discharged Performed By: #### L 100.0100, L500.2500 ####[facility] [address] [place], [address] HCT Normal 37-47 [facility] Comment on above: Result Comment: Canc elled via OM: Order cancelled - Patient discharged Performed By: #### L 100.0100, L500.2500 ####[facility] [address] [place], [address] HGB Normal 12.0-15.0 [facility] Comment on above: Result Comment: Canc elled via OM: Order cancelled - Patient discharged Performed By: #### L 100.0100, L500.2500 ####[facility] [address] [place], [address] MCH Normal 27.0-32.0 [facility] Comment on above: Result Comment: Canc elled via OM: Order cancelled - Patient discharged Performed By: #### L 100.0100, L500.2500 ####[facility] [address] [place], [address] MCHC Normal 32-36 [facility] Comment on above: Result Comment: Canc elled via OM: Order cancelled - Patient discharged Performed By: #### L 100.0100, L500.2500 ####[facility] [address] [place], [address] MCV Normal 81-99 [facility] Comment on above: Result Comment: Canc elled via OM: Order cancelled - Patient discharged Performed By: #### L 100.0100, L500.2500 ####[facility] [address] [place], [address] NEUT% Normal 47-70 [facility] Comment on above: Result Comment: Canc elled via OM: Order cancelled - Patient discharged Performed By: #### L 100.0100, L500.2500 ####[facility] [address] [place], [address] PLT Normal 150-450 [facility] Comment on above: Result Comment: Canc elled via OM: Order cancelled - Patient discharged Performed By: #### L 100.0100, L500.2500 ####[facility] [address] [place], [address] RBC Normal 4.2-5.4 [facility] Comment on above: Result Comment: Canc elled via OM: Order cancelled - Patient discharged Performed By: #### L 100.0100, L500.2500 ####[facility] [address] [place], [address] RDW CV Normal 11.6-14.6 [facility] Comment on above: Result Comment: Canc elled via OM: Order cancelled - Patient discharged Performed By: #### L 100.0100, L500.2500 ####[facility] [address] [place], [address] RDW SD Normal 35.1-43.9 [facility] Comment on above: Result Comment: Canc elled via OM: Order cancelled - Patient discharged Performed By: #### L 100.0100, L500.2500 ####[facility] [address] [place], [address] WBC Normal 4.4-11.0 [facility] Comment on above: Result Comment: Canc elled via OM: Order cancelled - Patient discharged Performed By: #### L 100.0100, L500.2500 ####[facility] [address] [place], [address] Basic Metabolic Profile (BMP )on 11-23-2024 BUN/CRE 7.9 RATIO Low 10-20 [facility] Comment on above: Performed By: #### L 100.0100, L500.2500 ####[facility] [address] [place], [address] Calcium [Mass/Vol] 7.5 mg/dL Low 7.6-11.0 [facility] Comment on above: Performed By: #### L 100.0100, L500.2500 ####[facility] [address] [place], [address] Chloride [Moles/Vol] 111 mmol/L High 98-108 [facility] Comment on above: Performed By: #### L 100.0100, L500.2500 ####[facility] [address] [place], [address] CO2 [Moles/Vol] 18.5 mmol/L Low 21.0-32.0 [facility] Comment on above: Performed By: #### L 100.0100, L500.2500 ####[facility] [address] [place], [address] Creatinine [Mass/Vol] 0.91 mg/dL Normal 0.70-1.20 [facility] Comment on above: Performed By: #### L 100.0100, L500.2500 ####[facility] [address] [place], [address] ECRCL 90.47 ml/min Normal 50-250 [facility] Comment on above: Performed By: #### L 100.0100, L500.2500 ####[facility] [address] [place], [address] GAP 9 Normal 5-15 [facility] Comment on above: Performed By: #### L 100.0100, L500.2500 ####[facility] [address] [place], [address] GFR/1.73 sq M.predicted among non-blacks MDRD (S/P/Bld) [Vol rate/Area] 81 mL/min/{1.73_m2} Normal >60 [facility] Comment on above: Result Comment: mL/m in/1.73m2 CKD-EPI Creatinine Equation (2020) Performed By: #### L 100.0100, L500.2500 ####[facility] [address] [place], [address] Glucose [Mass/Vol] 111 mg/dL High 70-99 [facility] Comment on above: Performed By: #### L 100.0100, L500.2500 ####[facility] [address] [place], [address] Potassium [Moles/Vol] 3.2 mmol/L Low 3.3-5.1 [facility] Comment on above: Performed By: #### L 100.0100, L500.2500 ####[facility] [address] [place], [address] Sodium [Moles/Vol] 139 mmol/L Normal 133-145 [facility] Comment on above: Performed By: #### L 100.0100, L500.2500 ####[facility] [address] [place], [address] Urea nitrogen [Mass/Vol] 7 mg/dL Normal 4-19 [facility] Comment on above: Performed By: #### L 100.0100, L500.2500 ####[facility] [address] [place], [address] CBC W/Diff, Automatedon 10-27 OVALOCYTE 1+ Normal [facility] Comment on above: Performed By: #### L 100.0100, L500.2500 ####[facility] [address] [place], [address] PLT EST A Normal ADEQ [facility] Comment on above: Performed By: #### L 100.0100, L500.2500 ####[facility] [address] [place], [address] ATYPICAL LYMPH 1+ Normal [facility] Comment on above: Performed By: #### L 100.0100, L500.2500 ####[facility] [address] [place], [address] Basic Metabolic Profile (BMP )on 11-22-2024 BUN/CRE 14.4 RATIO Normal 10-20 [facility] Comment on above: Performed By: #### L 501.5200, L501.2300, L100.0100, L500.2500 ####[facility] [address] [place], [address] Calcium [Mass/Vol] 8.5 mg/dL Normal 7.6-11.0 [facility] Comment on above: Performed By: #### L 501.5200, L501.2300, L100.0100, L500.2500 ####[facility] [address] [place], [address] Chloride [Moles/Vol] 107 mmol/L Normal 98-108 [facility] Comment on above: Performed By: #### L 501.5200, L501.2300, L100.0100, L500.2500 ####[facility] [address] [place], [address] CO2 [Moles/Vol] 18.4 mmol/L Low 21.0-32.0 [facility] Comment on above: Performed By: #### L 501.5200, L501.2300, L100.0100, L500.2500 ####[facility] [address] [place], [address] Creatinine [Mass/Vol] 1.24 mg/dL High 0.70-1.20 [facility] Comment on above: Performed By: #### L 501.5200, L501.2300, L100.0100, L500.2500 ####[facility] [address] [place], [address] ECRCL 66.39 ml/min Normal 50-250 [facility] Comment on above: Performed By: #### L 501.5200, L501.2300, L100.0100, L500.2500 ####[facility] [address] [place], [address] GAP 11 Normal 5-15 [facility] Comment on above: Performed By: #### L 501.5200, L501.2300, L100.0100, L500.2500 ####[facility] [address] [place], [address] GFR/1.73 sq M.predicted among non-blacks MDRD (S/P/Bld) [Vol rate/Area] 56 mL/min/{1.73_m2} Low >60 [facility] Comment on above: Result Comment: mL/m in/1.73m2 CKD-EPI Creatinine Equation (2020) Performed By: #### L 501.5200, L501.2300, L100.0100, L500.2500 ####[facility] [address] [place], [address] Glucose [Mass/Vol] 101 mg/dL High 70-99 [facility] Comment on above: Performed By: #### L 501.5200, L501.2300, L100.0100, L500.2500 ####[facility] [address] [place], [address] Potassium [Moles/Vol] 3.4 mmol/L Normal 3.3-5.1 [facility] Comment on above: Performed By: #### L 501.5200, L501.2300, L100.0100, L500.2500 ####[facility] [address] [place], [address] Sodium [Moles/Vol] 137 mmol/L Normal 133-145 [facility] Comment on above: Performed By: #### L 501.5200, L501.2300, L100.0100, L500.2500 ####[facility] [address] [place], [address] Urea nitrogen [Mass/Vol] 18 mg/dL Normal 4-19 [facility] Comment on above: Performed By: #### L 501.5200, L501.2300, L100.0100, L500.2500 ####[facility] [address] [place], [address] CBC W/Diff, Automatedon 05-2 PATH REV Reviewed Normal [facility] Comment on above: Result Comment: SEE REPORT IN PATIENT'S EMR AMENDED REPORT 11/22/24 1421 PATH REV previously reported as: October Performed By: #### L 100.0100, M200.1000, L501.4021, L503.7505, L500.4050, L300.4310, L300.3900, L503.6005 ####[facility] [address] [place], [address] Absolute Lymph 1.71 X10 3/uL Normal 0.83-4.51 [facility] Comment on above: Performed By: #### L 501.5200, L501.2300, L100.0100, L500.2500 ####[facility] [address] [place], [address] Absolute Neut 3.9 X10 3/uL Normal 2.0-7.7 [facility] Comment on above: Performed By: #### L 501.5200, L501.2300, L100.0100, L500.2500 ####[facility] [address] [place], [address] Basophils/100 WBC (Bld) 0.6 % Normal 0-1 [facility] Comment on above: Performed By: #### L 501.5200, L501.2300, L100.0100, L500.2500 ####[facility] [address] [place], [address] Eosinophils/100 WBC (Bld) 3.0 % Normal 0-5 [facility] Comment on above: Performed By: #### L 501.5200, L501.2300, L100.0100, L500.2500 ####[facility] [address] [place], [address] Erythrocyte distribution width (RBC) [Ratio] 16.2 % High 11.6-14.6 [facility] Comment on above: Performed By: #### L 501.5200, L501.2300, L100.0100, L500.2500 ####[facility] [address] [place], [address] Hematocrit (Bld) [Volume fraction] 27.7 % Low 37-47 [facility] Comment on above: Performed By: #### L 501.5200, L501.2300, L100.0100, L500.2500 ####[facility] [address] [place], [address] Hemoglobin (Bld) [Mass/Vol] 8.7 g/dL Low 12.0-15.0 [facility] Comment on above: Performed By: #### L 501.5200, L501.2300, L100.0100, L500.2500 ####[facility] [address] [place], [address] IG% 0.300 Normal 0.0-0.9 [facility] Comment on above: Result Comment: IG% - Immature Granulocytes (promyelocytes, myelocytes andmetamyelocytes) > 1% indicates that a LEFT SHIFT is Present. Performed By: #### L 501.5200, L501.2300, L100.0100, L500.2500 ####[facility] [address] [place], [address] Lymphocytes/100 WBC (Bld) 26.9 % Normal 19-41 [facility] Comment on above: Performed By: #### L 501.5200, L501.2300, L100.0100, L500.2500 ####[facility] [address] [place], [address] MCH (RBC) [Entitic mass] 25.1 pg Low 27.0-32.0 [facility] Comment on above: Performed By: #### L 501.5200, L501.2300, L100.0100, L500.2500 ####[facility] [address] [place], [address] MCHC (RBC) [Mass/Vol] 31.4 g/dL Low 32-36 [facility] Comment on above: Performed By: #### L 501.5200, L501.2300, L100.0100, L500.2500 ####[facility] [address] [place], [address] MCV (RBC) [Entitic vol] 79.8 fL Low 81-99 [facility] Comment on above: Performed By: #### L 501.5200, L501.2300, L100.0100, L500.2500 ####[facility] [address] [place], [address] Monocytes/100 WBC (Bld) 8.2 % Normal 0-10 [facility] Comment on above: Performed By: #### L 501.5200, L501.2300, L100.0100, L500.2500 ####[facility] [address] [place], [address] Neutrophils/100 WBC (Bld) 61.0 % Normal 47-70 [facility] Comment on above: Performed By: #### L 501.5200, L501.2300, L100.0100, L500.2500 ####[facility] [address] [place], [address] Nucleated RBC (Bld) [#/Vol] 0 10*3/uL Normal 0-5 [facility] Comment on above: Performed By: #### L 501.5200, L501.2300, L100.0100, L500.2500 ####[facility] [address] [place], [address] Platelet mean volume (Bld) [Entitic vol] 8.8 fL Normal 6.2-12.0 [facility] Comment on above: Performed By: #### L 501.5200, L501.2300, L100.0100, L500.2500 ####[facility] [address] [place], [address] Platelets (Bld) [#/Vol] 351 10*3/uL Normal 150-450 [facility] Comment on above: Performed By: #### L 501.5200, L501.2300, L100.0100, L500.2500 ####[facility] [address] [place], [address] RBC (Bld) [#/Vol] 3.47 10*6/uL Low 4.2-5.4 [facility] Comment on above: Performed By: #### L 501.5200, L501.2300, L100.0100, L500.2500 ####[facility] [address] [place], [address] RDW SD 46.9 fl High 35.1-43.9 [facility] Comment on above: Performed By: #### L 501.5200, L501.2300, L100.0100, L500.2500 ####[facility] [address] [place], [address] WBC (Bld) [#/Vol] 6.4 10*3/uL Normal 4.4-11.0 [facility] Comment on above: Performed By: #### L 501.5200, L501.2300, L100.0100, L500.2500 ####[facility] [address] [place], [address] Magnesiumon 11-22-2024 Magnesium [Mass/Vol] 1.3 mg/dL Low 1.5-2.2 [facility] Comment on above: Performed By: #### L 501.5200, L501.2300, L100.0100, L500.2500 ####[facility] [address] [place], [address] Phosphoruson 11-22-2024 Phosphate [Mass/Vol] 2.7 mg/dL Normal 2.7-4.5 [facility] Comment on above: Performed By: #### L 501.5200, L501.2300, L100.0100, L500.2500 ####[facility] [address] [place], [address] Basic Metabolic Profile (BMP )on 11-21-2024 BUN/CRE 11.9 RATIO Normal 10-20 [facility] Comment on above: Performed By: #### L 100.0100, L500.2500 ####[facility] [address] [place], [address] Calcium [Mass/Vol] 9.1 mg/dL Normal 7.6-11.0 [facility] Comment on above: Performed By: #### L 100.0100, L500.2500 ####[facility] [address] [place], [address] Chloride [Moles/Vol] 95 mmol/L Low 98-108 [facility] Comment on above: Performed By: #### L 100.0100, L500.2500 ####[facility] [address] [place], [address] CO2 [Moles/Vol] 15.6 mmol/L Low 21.0-32.0 [facility] Comment on above: Performed By: #### L 100.0100, L500.2500 ####[facility] [address] [place], [address] Creatinine [Mass/Vol] 2.69 mg/dL High 0.70-1.20 [facility] Comment on above: Performed By: #### L 100.0100, L500.2500 ####[facility] [address] [place], [address] ECRCL 30.60 ml/min Low 50-250 [facility] Comment on above: Performed By: #### L 100.0100, L500.2500 ####[facility] [address] [place], [address] GAP 17 High 5-15 [facility] Comment on above: Performed By: #### L 100.0100, L500.2500 ####[facility] [address] [place], [address] GFR/1.73 sq M.predicted among non-blacks MDRD (S/P/Bld) [Vol rate/Area] 22 mL/min/{1.73_m2} Low >60 [facility] Comment on above: Result Comment: mL/m in/1.73m2 CKD-EPI Creatinine Equation (2020) Performed By: #### L 100.0100, L500.2500 ####[facility] [address] [place], [address] Glucose [Mass/Vol] 127 mg/dL High 70-99 [facility] Comment on above: Performed By: #### L 100.0100, L500.2500 ####[facility] [address] [place], [address] Potassium [Moles/Vol] 3.6 mmol/L Normal 3.3-5.1 [facility] Comment on above: Performed By: #### L 100.0100, L500.2500 ####[facility] [address] [place], [address] Sodium [Moles/Vol] 128 mmol/L Low 133-145 [facility] Comment on above: Performed By: #### L 100.0100, L500.2500 ####[facility] [address] [place], [address] Urea nitrogen [Mass/Vol] 32 mg/dL High 4-19 [facility] Comment on above: Performed By: #### L 100.0100, L500.2500 ####[facility] [address] [place], [address] CBC W/Diff, Automatedon 05-2 Absolute Lymph 2.24 X10 3/uL Normal 0.83-4.51 [facility] Comment on above: Performed By: #### L 100.0100, L500.2500 ####[facility] [address] [place], [address] Absolute Neut 5.3 X10 3/uL Normal 2.0-7.7 [facility] Comment on above: Performed By: #### L 100.0100, L500.2500 ####[facility] [address] [place], [address] Basophils/100 WBC (Bld) 0.6 % Normal 0-1 [facility] Comment on above: Performed By: #### L 100.0100, L500.2500 ####[facility] [address] [place], [address] Eosinophils/100 WBC (Bld) 1.9 % Normal 0-5 [facility] Comment on above: Performed By: #### L 100.0100, L500.2500 ####[facility] [address] [place], [address] Erythrocyte distribution width (RBC) [Ratio] 16.3 % High 11.6-14.6 [facility] Comment on above: Performed By: #### L 100.0100, L500.2500 ####[facility] [address] [place], [address] Hematocrit (Bld) [Volume fraction] 30.2 % Low 37-47 [facility] Comment on above: Performed By: #### L 100.0100, L500.2500 ####[facility] [address] [place], [address] Hemoglobin (Bld) [Mass/Vol] 9.5 g/dL Low 12.0-15.0 [facility] Comment on above: Performed By: #### L 100.0100, L500.2500 ####[facility] [address] [place], [address] IG% 0.500 Normal 0.0-0.9 [facility] Comment on above: Result Comment: IG% - Immature Granulocytes (promyelocytes, myelocytes andmetamyelocytes) > 1% indicates that a LEFT SHIFT is Present. Performed By: #### L 100.0100, L500.2500 ####[facility] [address] [place], [address] Lymphocytes/100 WBC (Bld) 26.5 % Normal 19-41 [facility] Comment on above: Performed By: #### L 100.0100, L500.2500 ####[facility] [address] [place], [address] MCH (RBC) [Entitic mass] 24.7 pg Low 27.0-32.0 [facility] Comment on above: Performed By: #### L 100.0100, L500.2500 ####[facility] [address] [place], [address] MCHC (RBC) [Mass/Vol] 31.5 g/dL Low 32-36 [facility] Comment on above: Performed By: #### L 100.0100, L500.2500 ####[facility] [address] [place], [address] MCV (RBC) [Entitic vol] 78.6 fL Low 81-99 [facility] Comment on above: Performed By: #### L 100.0100, L500.2500 ####[facility] [address] [place], [address] Monocytes/100 WBC (Bld) 8.5 % Normal 0-10 [facility] Comment on above: Performed By: #### L 100.0100, L500.2500 ####[facility] [address] [place], [address] Neutrophils/100 WBC (Bld) 62.0 % Normal 47-70 [facility] Comment on above: Performed By: #### L 100.0100, L500.2500 ####[facility] [address] [place], [address] Nucleated RBC (Bld) [#/Vol] 0 10*3/uL Normal 0-5 [facility] Comment on above: Performed By: #### L 100.0100, L500.2500 ####[facility] [address] [place], [address] Platelet mean volume (Bld) [Entitic vol] 8.8 fL Normal 6.2-12.0 [facility] Comment on above: Performed By: #### L 100.0100, L500.2500 ####[facility] [address] [place], [address] Platelets (Bld) [#/Vol] 423 10*3/uL Normal 150-450 [facility] Comment on above: Performed By: #### L 100.0100, L500.2500 ####[facility] [address] [place], [address] RBC (Bld) [#/Vol] 3.84 10*6/uL Low 4.2-5.4 [facility] Comment on above: Performed By: #### L 100.0100, L500.2500 ####[facility] [address] [place], [address] RDW SD 46.2 fl High 35.1-43.9 [facility] Comment on above: Performed By: #### L 100.0100, L500.2500 ####[facility] [address] [place], [address] WBC (Bld) [#/Vol] 8.5 10*3/uL Normal 4.4-11.0 [facility] Comment on above: Performed By: #### L 100.0100, L500.2500 ####[facility] [address] [place], [address] H AND P Exam - Hospitaliston 11-21-2024 H&P Exam - Hospitalist Normal [facility] Urinalysis, Completeon 11-21 BACTERIA 2+ /hpf Normal None Seen [facility] Comment on above: Order Comment: LEO CTOR TO SPECIFY Performed By: #### M 100.678, L400.0001, M100.2200 ####[facility] [address] [place], [address] EPI,SQUAMOUS 0-5 SEEN Normal 5-10 [facility] Comment on above: Order Comment: LEO CTOR TO SPECIFY Performed By: #### M 100.678, L400.0001, M100.2200 ####[facility] [address] [place], [address] WBC 10-25 SEEN Normal 0-5 [facility] Comment on above: Order Comment: LEO CTOR TO SPECIFY Performed By: #### M 100.678, L400.0001, M100.2200 ####[facility] [address] [place], [address] YEAST 1+ /hpf Normal None Seen [facility] Comment on above: Order Comment: LEO CTOR TO SPECIFY Performed By: #### M 100.678, L400.0001, M100.2200 ####[facility] [address] [place], [address] BILIRUBIN URINE Negative Normal Negative [facility] Comment on above: Order Comment: COLLE CTOR TO SPECIFY Performed By: #### M 100.678, L400.0001, M100.2200 ####[facility] [address] [place], [address] Clarity (U) Clear Normal Clear [facility] Comment on above: Order Comment: [facility] CTOR TO SPECIFY Performed By: #### M 100.678, L400.0001, M100.2200 ####[facility] [address] [place], [address] Color (U) Yellow Normal Yellow [facility] Comment on above: Order Comment: [facility] CTOR TO SPECIFY Performed By: #### M 100.678, L400.0001, M100.2200 ####[facility] [address] [place], [address] GLUCOSE, UR Normal Normal Normal [facility] Comment on above: Order Comment: [facility] CTOR TO SPECIFY Performed By: #### M 100.678, L400.0001, M100.2200 ####[facility] [address] [place], [address] KETONE UR Negative Normal Negative [facility] Comment on above: Order Comment: [facility] CTOR TO SPECIFY Performed By: #### M 100.678, L400.0001, M100.2200 ####[facility] [address] [place], [address] LEUK ESTERASE 25 /ul Abnormal Negative [facility] Comment on above: Order Comment: [facility] CTOR TO SPECIFY Performed By: #### M 100.678, L400.0001, M100.2200 ####[facility] [address] [place], [address] Nitrite Ql (U) Negative Normal Negative [facility] Comment on above: Order Comment: [facility] CTOR TO SPECIFY Performed By: #### M 100.678, L400.0001, M100.2200 ####[facility] [address] [place], [address] OCCULT BLOOD-UR Negative Normal Negative [facility] Comment on above: Order Comment: LEO CTOR TO SPECIFY Performed By: #### M 100.678, L400.0001, M100.2200 ####[facility] [address] [place], [address] pH UR 5.0 Normal 5.0 - 8.0 [facility] Comment on above: Order Comment: LEO CTOR TO SPECIFY Performed By: #### M 100.678, L400.0001, M100.2200 ####[facility] [address] [place], [address] PROT DIPSTX 30 mg/dl Abnormal Negative [facility] Comment on above: Order Comment: LEO CTOR TO SPECIFY Performed By: #### M 100.678, L400.0001, M100.2200 ####[facility] [address] [place], [address] SP.GR. DIPSTX 1.015 Normal 1.002-1.030 [facility] Comment on above: Order Comment: LEO CTOR TO SPECIFY Performed By: #### M 100.678, L400.0001, M100.2200 ####[facility] [address] [place], [address] UROBILI Normal Normal Normal [facility] Comment on above: Order Comment: LEO CTOR TO SPECIFY Performed By: #### M 100.678, L400.0001, M100.2200 ####[facility] [address] [place], [address] Mucus Ql (Urine sed) 0 SEEN Normal [facility] Comment on above: Order Comment: LEO CTOR TO SPECIFY Performed By: #### M 100.678, L400.0001, M100.2200 ####[facility] [address] [place], [address] RBC 0 SEEN Normal 0-5 [facility] Comment on above: Order Comment: COLLE CTOR TO SPECIFY Performed By: #### M 100.678, L400.0001, M100.2200 ####[facility] [address] [place], [place], [id number] 12 Lead EKGon 11-20-2024 12 Lead EKG Normal [facility] CBC W/Diff, Automatedon 10-26 PLT EST MKD INC Normal ADEQ [facility] Comment on above: Performed By: #### L 500.4050, M200.1000, L300.3900, L300.4310, L100.0100, L503.6005 ####[facility] [address] [place], [place], [id number] PATH REV May foll Normal [facility] Comment on above: Performed By: #### L 500.4050, M200.1000, L300.3900, L300.4310, L100.0100, L503.6005 ####[facility] [address] [place], [place], [id number] CTA Chst, Abd, Pel W and/or WOon 11-20-2024 CTA Chst, Abd, Pel W and/or WO Normal [facility] Comprehensive Metabolic Prof ilon 11-20-2024 Albumin [Mass/Vol] 4.7 g/dL Normal 3.5-5.0 [facility] Comment on above: Performed By: #### L 500.4050, M200.1000, L300.3900, L300.4310, L100.0100, L503.6005 ####[facility] [address] [place], [address] Albumin/Globulin [Mass ratio] 0.9 {ratio} Normal 0.9-2.4 [facility] Comment on above: Performed By: #### L 500.4050, M200.1000, L300.3900, L300.4310, L100.0100, L503.6005 ####[facility] [address] [place], [address] ALK PHOS 337 U/L High 35-104 [facility] Comment on above: Performed By: #### L 500.4050, M200.1000, L300.3900, L300.4310, L100.0100, L503.6005 ####[facility] [address] [place], [address] ALT [Catalytic activity/Vol] 127 U/L High <=34 [facility] Comment on above: Performed By: #### L 500.4050, M200.1000, L300.3900, L300.4310, L100.0100, L503.6005 ####[facility] [address] [place], [address] AST [Catalytic activity/Vol] 106 U/L High <=31 [facility] Comment on above: Performed By: #### L 500.4050, M200.1000, L300.3900, L300.4310, L100.0100, L503.6005 ####[facility] [address] [place], [address] Bilirubin [Mass/Vol] 0.82 mg/dL Normal 0.00-1.30 [facility] Comment on above: Performed By: #### L 500.4050, M200.1000, L300.3900, L300.4310, L100.0100, L503.6005 ####[facility] [address] [place], [address] BUN/CRE 8.4 RATIO Low 10-20 [facility] Comment on above: Performed By: #### L 500.4050, M200.1000, L300.3900, L300.4310, L100.0100, L503.6005 ####[facility] [address] [place], [address] Calcium [Mass/Vol] 10.8 mg/dL Normal 7.6-11.0 [facility] Comment on above: Performed By: #### L 500.4050, M200.1000, L300.3900, L300.4310, L100.0100, L503.6005 ####[facility] [address] [place], [address] Chloride [Moles/Vol] 88 mmol/L Low 98-108 [facility] Comment on above: Performed By: #### L 500.4050, M200.1000, L300.3900, L300.4310, L100.0100, L503.6005 ####[facility] [address] [place], [address] CO2 [Moles/Vol] 15.2 mmol/L Low 21.0-32.0 [facility] Comment on above: Performed By: #### L 500.4050, M200.1000, L300.3900, L300.4310, L100.0100, L503.6005 ####[facility] [address] [place], [address] Creatinine [Mass/Vol] 4.32 mg/dL High 0.70-1.20 [facility] Comment on above: Performed By: #### L 500.4050, M200.1000, L300.3900, L300.4310, L100.0100, L503.6005 ####[facility] [address] [place], [address] ECRCL 19.01 ml/min Low 50-250 [facility] Comment on above: Performed By: #### L 500.4050, M200.1000, L300.3900, L300.4310, L100.0100, L503.6005 ####[facility] [address] [place], [address] GAP 25 High 5-15 [facility] Comment on above: Performed By: #### L 500.4050, M200.1000, L300.3900, L300.4310, L100.0100, L503.6005 ####[facility] [address] [place], [address] GFR/1.73 sq M.predicted among non-blacks MDRD (S/P/Bld) [Vol rate/Area] 13 mL/min/{1.73_m2} Low >60 [facility] Comment on above: Result Comment: mL/m in/1.73m2 CKD-EPI Creatinine Equation (2020) Performed By: #### L 500.4050, M200.1000, L300.3900, L300.4310, L100.0100, L503.6005 ####[facility] [address] [place], [address] Globulin (S) [Mass/Vol] 5.5 g/dL High 2.2-4.2 [facility] Comment on above: Performed By: #### L 500.4050, M200.1000, L300.3900, L300.4310, L100.0100, L503.6005 ####[facility] [address] [place], [address] Glucose [Mass/Vol] 249 mg/dL High 70-99 [facility] Comment on above: Performed By: #### L 500.4050, M200.1000, L300.3900, L300.4310, L100.0100, L503.6005 ####[facility] [address] [place], [address] Potassium [Moles/Vol] 4.4 mmol/L Normal 3.3-5.1 [facility] Comment on above: Performed By: #### L 500.4050, M200.1000, L300.3900, L300.4310, L100.0100, L503.6005 ####[facility] [address] [place], [address] Sodium [Moles/Vol] 129 mmol/L Low 133-145 [facility] Comment on above: Performed By: #### L 500.4050, M200.1000, L300.3900, L300.4310, L100.0100, L503.6005 ####[facility] [address] [place], [address] T PROT 10.1 g/dL High 5.9-8.4 [facility] Comment on above: Performed By: #### L 500.4050, M200.1000, L300.3900, L300.4310, L100.0100, L503.6005 ####[facility] [address] [place], [address] Urea nitrogen [Mass/Vol] 36 mg/dL High 4-19 [facility] Comment on above: Performed By: #### L 500.4050, M200.1000, L300.3900, L300.4310, L100.0100, L503.6005 ####[facility] [address] [place], [address] Emergency Department Summary on 11-20-2024 Emergency Department Summary Normal [facility] Foot min 3 Viewson 5 Foot min 3 Views Normal [facility] L499.0042on 11-20-2024 Trop T High Sen 32 ng/L High <=14 [facility] Comment on above: Performed By: #### L 499.0042 ####[facility] [address] [place], [address] L499.0043on 11-20-2024 Trop T High Sen 32 ng/L High <=14 [facility] Comment on above: Performed By: #### L 499.0043 ####[facility] [address] [place], [address] L501.4021on 11-20-2024 Trop T High Sen 38 ng/L High <=14 [facility] Comment on above: Performed By: #### L 501.4021 ####[facility] [address] [place], [address] Lactic Acidon 11-20-2024 Lactate [Moles/Vol] 1.7 mmol/L Normal 0.0-2.0 [facility] Comment on above: Performed By: #### L 503.6005 ####[facility] [address] [place], [address] Lactate [Moles/Vol] 6.1 mmol/L Invalid Interpretation Code 0.0-2.0 [facility] Comment on above: Order Comment: Y Result Comment: Crit ical Result(s) Called at: 1557 by: CLAUDIA GUTIERREZ TO [facility]??Results read back by same. Performed By: #### L 500.4050, M200.1000, L300.3900, L300.4310, L100.0100, L503.6005 ####[facility] [address] [place], [address] M100.678on 11-20-2024 M100.678 Pending SARS-CoV-2 (COVID 19) Negative INFLUENZA A Negative INFLUENZA B Negative RSV PCR Negative Normal [facility] Comment on above: Performed By: #### M 100.678, L400.0001, M100.2200 ####[facility] [address] [place], [address] Partial Thromboplast Timeon 11-20-2024 aPTT Coag (Bld) [Time] 30.1 s Normal 24.1-36.2 [facility] Comment on above: Performed By: #### L 500.4050, M200.1000, L300.3900, L300.4310, L100.0100, L503.6005 ####[facility] [address] [place], [address] Prothrombin Time w/INRon INR Coag (PPP) [Relative time] 1.1 {INR} Normal [facility] Comment on above: Performed By: #### L 500.4050, M200.1000, L300.3900, L300.4310, L100.0100, L503.6005 ####[facility] [address] [place], [address] PT Coag (PPP) [Time] 14.8 s Normal 11.7-14.9 [facility] Comment on above: Performed By: #### L 500.4050, M200.1000, L300.3900, L300.4310, L100.0100, L503.6005 ####[facility] [address] [place], [address] Culture, Anaerobic Any Sourc patricia 11-19-2024 CUAN UNK UNK COLLECTED IN OR No anaerobic bacteria isolated. [facility] Comment on above: Performed By: #### M 100.2000, M100.4001, M100.3000 ####[facility] [address] [place], [address] Culture, Blood (WB)on 2024 CUB Blood cultures x2, f rom two different sites No growth in 5 days. Normal [facility] Comment on above: Performed By: #### M 200.1000 ####[facility] [address] [place], [address] CUB Blood cultures x2, f rom two different sites No growth in 5 days. [facility] Comment on above: Performed By: #### L 100.0100, M200.1000, L501.4021, L503.7505, L500.4050, L300.4310, L300.3900, L503.6005 ####[facility] [address] [place], [address] Wound Cultureon 11-18-2024 WC Normal [facility] Comment on above: Performed By: #### M 100.2000, M100.4001, M100.3000 ####[facility] [address] [place], [address] Discharge Instructionon 10-26 Discharge Instruction Normal [facility] Basic Metabolic Profile (BMP )on 11-15-2024 BUN/CRE 13.5 RATIO Normal 10-20 [facility] Comment on above: Performed By: #### L 100.0100, L300.4310, L300.3900, L500.2500 ####[facility] [address] [place], [address] Calcium [Mass/Vol] 8.3 mg/dL Normal 7.6-11.0 [facility] Comment on above: Performed By: #### L 100.0100, L300.4310, L300.3900, L500.2500 ####[facility] [address] [place], [address] Chloride [Moles/Vol] 105 mmol/L Normal 98-108 [facility] Comment on above: Performed By: #### L 100.0100, L300.4310, L300.3900, L500.2500 ####[facility] [address] [place], [address] CO2 [Moles/Vol] 19.0 mmol/L Low 21.0-32.0 [facility] Comment on above: Performed By: #### L 100.0100, L300.4310, L300.3900, L500.2500 ####[facility] [address] [place], [address] Creatinine [Mass/Vol] 1.38 mg/dL High 0.70-1.20 [facility] Comment on above: Performed By: #### L 100.0100, L300.4310, L300.3900, L500.2500 ####[facility] [address] [place], [address] ECRCL 60.44 ml/min Normal 50-250 [facility] Comment on above: Performed By: #### L 100.0100, L300.4310, L300.3900, L500.2500 ####[facility] [address] [place], [address] GAP 11 Normal 5-15 [facility] Comment on above: Performed By: #### L 100.0100, L300.4310, L300.3900, L500.2500 ####[facility] [address] [place], [address] GFR/1.73 sq M.predicted among non-blacks MDRD (S/P/Bld) [Vol rate/Area] 49 mL/min/{1.73_m2} Low >60 [facility] Comment on above: Result Comment: mL/m in/1.73m2 CKD-EPI Creatinine Equation (2020) Performed By: #### L 100.0100, L300.4310, L300.3900, L500.2500 ####[facility] [address] [place], [address] Glucose [Mass/Vol] 90 mg/dL Normal 70-99 [facility] Comment on above: Performed By: #### L 100.0100, L300.4310, L300.3900, L500.2500 ####[facility] [address] [place], [address] Potassium [Moles/Vol] 3.2 mmol/L Low 3.3-5.1 [facility] Comment on above: Performed By: #### L 100.0100, L300.4310, L300.3900, L500.2500 ####[facility] [address] [place], [address] Sodium [Moles/Vol] 135 mmol/L Normal 133-145 [facility] Comment on above: Performed By: #### L 100.0100, L300.4310, L300.3900, L500.2500 ####[facility] [address] [place], [address] Urea nitrogen [Mass/Vol] 19 mg/dL Normal 4-19 [facility] Comment on above: Performed By: #### L 100.0100, L300.4310, L300.3900, L500.2500 ####[facility] [address] [place], [address] CBC W/Diff, Automatedon 05 Absolute Lymph 2.01 X10 3/uL Normal 0.83-4.51 [facility] Comment on above: Performed By: #### L 100.0100, L300.4310, L300.3900, L500.2500 ####[facility] [address] [place], [address] Absolute Neut 3.1 X10 3/uL Normal 2.0-7.7 [facility] Comment on above: Performed By: #### L 100.0100, L300.4310, L300.3900, L500.2500 ####[facility] [address] [place], [address] Basophils/100 WBC (Bld) 1.0 % Normal 0-1 [facility] Comment on above: Performed By: #### L 100.0100, L300.4310, L300.3900, L500.2500 ####[facility] [address] [place], [address] Eosinophils/100 WBC (Bld) 1.9 % Normal 0-5 [facility] Comment on above: Performed By: #### L 100.0100, L300.4310, L300.3900, L500.2500 ####[facility] [address] [place], [address] Erythrocyte distribution width (RBC) [Ratio] 16.0 % High 11.6-14.6 [facility] Comment on above: Performed By: #### L 100.0100, L300.4310, L300.3900, L500.2500 ####[facility] [address] [place], [address] Hematocrit (Bld) [Volume fraction] 26.8 % Low 37-47 [facility] Comment on above: Performed By: #### L 100.0100, L300.4310, L300.3900, L500.2500 ####[facility] [address] [place], [address] Hemoglobin (Bld) [Mass/Vol] 8.6 g/dL Low 12.0-15.0 [facility] Comment on above: Performed By: #### L 100.0100, L300.4310, L300.3900, L500.2500 ####[facility] [address] [place], [address] IG% 0.300 Normal 0.0-0.9 [facility] Comment on above: Result Comment: IG% - Immature Granulocytes (promyelocytes, myelocytes andmetamyelocytes) > 1% indicates that a LEFT SHIFT is Present. Performed By: #### L 100.0100, L300.4310, L300.3900, L500.2500 ####[facility] [address] [place], [address] Lymphocytes/100 WBC (Bld) 34.9 % Normal 19-41 [facility] Comment on above: Performed By: #### L 100.0100, L300.4310, L300.3900, L500.2500 ####[facility] [address] [place], [address] MCH (RBC) [Entitic mass] 25.2 pg Low 27.0-32.0 [facility] Comment on above: Performed By: #### L 100.0100, L300.4310, L300.3900, L500.2500 ####[facility] [address] [place], [address] MCHC (RBC) [Mass/Vol] 32.1 g/dL Normal 32-36 [facility] Comment on above: Performed By: #### L 100.0100, L300.4310, L300.3900, L500.2500 ####[facility] [address] [place], [address] MCV (RBC) [Entitic vol] 78.6 fL Low 81-99 [facility] Comment on above: Performed By: #### L 100.0100, L300.4310, L300.3900, L500.2500 ####[facility] [address] [place], [address] Monocytes/100 WBC (Bld) 8.0 % Normal 0-10 [facility] Comment on above: Performed By: #### L 100.0100, L300.4310, L300.3900, L500.2500 ####[facility] [address] [place], [address] Neutrophils/100 WBC (Bld) 53.9 % Normal 47-70 [facility] Comment on above: Performed By: #### L 100.0100, L300.4310, L300.3900, L500.2500 ####[facility] [address] [place], [address] Nucleated RBC (Bld) [#/Vol] 0 10*3/uL Normal 0-5 [facility] Comment on above: Performed By: #### L 100.0100, L300.4310, L300.3900, L500.2500 ####[facility] [address] [place], [address] Platelet mean volume (Bld) [Entitic vol] 9.1 fL Normal 6.2-12.0 [facility] Comment on above: Performed By: #### L 100.0100, L300.4310, L300.3900, L500.2500 ####[facility] [address] [place], [address] Platelets (Bld) [#/Vol] 394 10*3/uL Normal 150-450 [facility] Comment on above: Performed By: #### L 100.0100, L300.4310, L300.3900, L500.2500 ####[facility] [address] [place], [address] RBC (Bld) [#/Vol] 3.41 10*6/uL Low 4.2-5.4 [facility] Comment on above: Performed By: #### L 100.0100, L300.4310, L300.3900, L500.2500 ####[facility] [address] [place], [address] RDW SD 45.2 fl High 35.1-43.9 [facility] Comment on above: Performed By: #### L 100.0100, L300.4310, L300.3900, L500.2500 ####[facility] [address] [place], [address] WBC (Bld) [#/Vol] 5.8 10*3/uL Normal 4.4-11.0 [facility] Comment on above: Performed By: #### L 100.0100, L300.4310, L300.3900, L500.2500 ####[facility] [address] [place], [address] Decalcification bone/plaqueo n 11-15-2024 Decalcification bone/plaque Normal [facility] Comment on above: Performed By: #### P DEC ####[facility] [address] [place], [address] Gram Stainon 11-15-2024 GS UNK UNK COLLECTED IN OR Gram Stain Rare Gram positive cocci Rare Gram positive rods Normal [facility] Comment on above: Performed By: #### M 100.2000, M100.4001, M100.3000 ####[facility] [address] [place], [address] MR/POSTOP.ANEon 11-15-2024 MR/POSTOP.ANE Normal [facility] MR/VUJJSQLW3qx 11-15-2024 MR/POSTOPAN2 Normal [facility] Operative Reporton Operative Report Normal [facility] Partial Thromboplast Timeon 11-15-2024 aPTT Coag (Bld) [Time] 59.2 s High 24.1-36.2 [facility] Comment on above: Performed By: #### L 100.0100, L300.4310, L300.3900, L500.2500 ####[facility] [address] [place], [address] aPTT Coag (Bld) [Time] 82.6 s High 24.1-36.2 [facility] Comment on above: Performed By: #### L 300.4310 ####[facility] [address] [place], [address] ,Urineon 11-15-2024 Beta HCG ( test) Ql (U) Negative Normal [facility] Comment on above: Result Comment: Very dilute urine specimens, as indicated by a low specificgravity, may not contain risk control field representative levels of hCG.If is still suspected, a first morning urinespecimen should be collected 48 hours later and tested. Performed By: #### L 400.7600 ####[facility] [address] [place], [address] Prothrombin Time w/INRon INR Coag (PPP) [Relative time] 1.1 {INR} Normal [facility] Comment on above: Performed By: #### L 100.0100, L300.4310, L300.3900, L500.2500 ####[facility] [address] [place], [address] PT Coag (PPP) [Time] 14.0 s Normal 11.7-14.9 [facility] Comment on above: Performed By: #### L 100.0100, L300.4310, L300.3900, L500.2500 ####[facility] [address] [place], [address] CBC W/Diff, Automatedon 05-2 Absolute Lymph 1.95 X10 3/uL Normal 0.83-4.51 [facility] Comment on above: Performed By: #### L 500.4050, L100.0100 ####[facility] [address] [place], [address] Absolute Neut 3.7 X10 3/uL Normal 2.0-7.7 [facility] Comment on above: Performed By: #### L 500.4050, L100.0100 ####[facility] [address] [place], [address] Basophils/100 WBC (Bld) 0.8 % Normal 0-1 [facility] Comment on above: Performed By: #### L 500.4050, L100.0100 ####[facility] [address] [place], [address] Eosinophils/100 WBC (Bld) 2.1 % Normal 0-5 [facility] Comment on above: Performed By: #### L 500.4050, L100.0100 ####[facility] [address] [place], [address] Erythrocyte distribution width (RBC) [Ratio] 15.8 % High 11.6-14.6 [facility] Comment on above: Performed By: #### L 500.4050, L100.0100 ####[facility] [address] [place], [address] Hematocrit (Bld) [Volume fraction] 28.9 % Low 37-47 [facility] Comment on above: Performed By: #### L 500.4050, L100.0100 ####[facility] [address] [place], [address] Hemoglobin (Bld) [Mass/Vol] 9.3 g/dL Low 12.0-15.0 [facility] Comment on above: Performed By: #### L 500.4050, L100.0100 ####[facility] [address] [place], [address] IG% 0.300 Normal 0.0-0.9 [facility] Comment on above: Result Comment: IG% - Immature Granulocytes (promyelocytes, myelocytes andmetamyelocytes) > 1% indicates that a LEFT SHIFT is Present. Performed By: #### L 500.4050, L100.0100 ####[facility] [address] [place], [address] Lymphocytes/100 WBC (Bld) 30.8 % Normal 19-41 [facility] Comment on above: Performed By: #### L 500.4050, L100.0100 ####[facility] [address] [place], [address] MCH (RBC) [Entitic mass] 24.7 pg Low 27.0-32.0 [facility] Comment on above: Performed By: #### L 500.4050, L100.0100 ####[facility] [address] [place], [address] MCHC (RBC) [Mass/Vol] 32.2 g/dL Normal 32-36 [facility] Comment on above: Performed By: #### L 500.4050, L100.0100 ####[facility] [address] [place], [address] MCV (RBC) [Entitic vol] 76.9 fL Low 81-99 [facility] Comment on above: Performed By: #### L 500.4050, L100.0100 ####[facility] [address] [place], [address] Monocytes/100 WBC (Bld) 7.4 % Normal 0-10 [facility] Comment on above: Performed By: #### L 500.4050, L100.0100 ####[facility] [address] [place], [address] Neutrophils/100 WBC (Bld) 58.6 % Normal 47-70 [facility] Comment on above: Performed By: #### L 500.4050, L100.0100 ####[facility] [address] [place], [address] Nucleated RBC (Bld) [#/Vol] 0 10*3/uL Normal 0-5 [facility] Comment on above: Performed By: #### L 500.4050, L100.0100 ####[facility] [address] [place], [address] Platelet mean volume (Bld) [Entitic vol] 8.9 fL Normal 6.2-12.0 [facility] Comment on above: Performed By: #### L 500.4050, L100.0100 ####[facility] [address] [place], [address] Platelets (Bld) [#/Vol] 393 10*3/uL Normal 150-450 [facility] Comment on above: Performed By: #### L 500.4050, L100.0100 ####[facility] [address] [place], [address] RBC (Bld) [#/Vol] 3.76 10*6/uL Low 4.2-5.4 [facility] Comment on above: Performed By: #### L 500.4050, L100.0100 ####[facility] [address] [place], [address] RDW SD 43.0 fl Normal 35.1-43.9 [facility] Comment on above: Performed By: #### L 500.4050, L100.0100 ####[facility] [address] [place], [address] WBC (Bld) [#/Vol] 6.3 10*3/uL Normal 4.4-11.0 [facility] Comment on above: Performed By: #### L 500.4050, L100.0100 ####[facility] [address] [place], [address] Comprehensive Metabolic Prof [facility] 11-14-2024 Albumin [Mass/Vol] 3.4 g/dL Low 3.5-5.0 [facility] Comment on above: Performed By: #### L 500.4050, L100.0100 ####[facility] [address] [place], [address] Albumin/Globulin [Mass ratio] 1.0 {ratio} Normal 0.9-2.4 [facility] Comment on above: Performed By: #### L 500.4050, L100.0100 ####[facility] [address] [place], [address] ALK PHOS 273 U/L High 35-104 [facility] Comment on above: Performed By: #### L 500.4050, L100.0100 ####[facility] [address] [place], [address] ALT [Catalytic activity/Vol] 205 U/L High <=34 [facility] Comment on above: Performed By: #### L 500.4050, L100.0100 ####[facility] [address] [place], [address] AST [Catalytic activity/Vol] 102 U/L High <=31 [facility] Comment on above: Performed By: #### L 500.4050, L100.0100 ####[facility] [address] [place], [address] Bilirubin [Mass/Vol] 1.20 mg/dL Normal 0.00-1.30 [facility] Comment on above: Performed By: #### L 500.4050, L100.0100 ####[facility] [address] [place], [address] BUN/CRE 18.6 RATIO Normal 10-20 [facility] Comment on above: Performed By: #### L 500.4050, L100.0100 ####[facility] [address] [place], [address] Calcium [Mass/Vol] 8.8 mg/dL Normal 7.6-11.0 [facility] Comment on above: Performed By: #### L 500.4050, L100.0100 ####[facility] [address] [place], [address] Chloride [Moles/Vol] 100 mmol/L Normal 98-108 [facility] Comment on above: Performed By: #### L 500.4050, L100.0100 ####[facility] [address] [place], [address] CO2 [Moles/Vol] 17.5 mmol/L Low 21.0-32.0 [facility] Comment on above: Performed By: #### L 500.4050, L100.0100 ####[facility] [address] [place], [address] Creatinine [Mass/Vol] 2.17 mg/dL High 0.70-1.20 [facility] Comment on above: Performed By: #### L 500.4050, L100.0100 ####[facility] [address] [place], [address] ECRCL 38.54 ml/min Low 50-250 [facility] Comment on above: Performed By: #### L 500.4050, L100.0100 ####[facility] [address] [place], [address] GAP 14 Normal 5-15 [facility] Comment on above: Performed By: #### L 500.4050, L100.0100 ####[facility] [address] [place], [address] GFR/1.73 sq M.predicted among non-blacks MDRD (S/P/Bld) [Vol rate/Area] 29 mL/min/{1.73_m2} Low >60 [facility] Comment on above: Result Comment: mL/m in/1.73m2 CKD-EPI Creatinine Equation (2020) Performed By: #### L 500.4050, L100.0100 ####[facility] [address] [place], [address] Globulin (S) [Mass/Vol] 3.6 g/dL Normal 2.2-4.2 [facility] Comment on above: Performed By: #### L 500.4050, L100.0100 ####[facility] [address] [place], [address] Glucose [Mass/Vol] 146 mg/dL High 70-99 [facility] Comment on above: Performed By: #### L 500.4050, L100.0100 ####[facility] [address] [place], [address] Potassium [Moles/Vol] 3.4 mmol/L Normal 3.3-5.1 [facility] Comment on above: Performed By: #### L 500.4050, L100.0100 ####[facility] [address] [place], [address] Sodium [Moles/Vol] 131 mmol/L Low 133-145 [facility] Comment on above: Performed By: #### L 500.4050, L100.0100 ####[facility] [address] [place], [address] T PROT 7.0 g/dL Normal 5.9-8.4 [facility] Comment on above: Performed By: #### L 500.4050, L100.0100 ####[facility] [address] [place], [address] Urea nitrogen [Mass/Vol] 40 mg/dL High 4-19 [facility] Comment on above: Performed By: #### L 500.4050, L100.0100 ####[facility] [address] [place], [address] Consultation - Surgicalon Consultation - Surgical Normal [facility] Lower Ext Art Exam w/o Exerc marly 11-14-2024 Lower Ext Art Exam w/o Exercis Normal [facility] Partial Thromboplast Timeon 11-14-2024 aPTT Coag (Bld) [Time] 30.6 s Normal 24.1-36.2 [facility] Comment on above: Performed By: #### L 300.4310 ####[facility] [address] [place], [address] aPTT Coag (Bld) [Time] 55.3 s High 24.1-36.2 [facility] Comment on above: Performed By: #### L 300.4310 ####[facility] [address] [place], [address] aPTT Coag (Bld) [Time] 56.1 s High 24.1-36.2 [facility] Comment on above: Performed By: #### L 300.4310 ####[facility] [address] [place], [address] Urine Cultureon 11-14-2024 URC Culture exhibits no growth. Normal [facility] Comment on above: Performed By: #### M 100.678, M100.2200, L400.0001 ####[facility] [address] [place], [address] 12 Lead EKGon 11-13-2024 12 Lead EKG Normal [facility] CRPon 11-13-2024 C-REACTIVE PROT 10.90 mg/L High 0.0-3.0 [facility] Comment on above: Performed By: #### L 501.6710, L101.9900 ####[facility] [address] [place], [address] Chest PA and Lateralon 11-13 Chest PA and Lateral Normal [facility] Comprehensive Metabolic Prof ilon 11-13-2024 Albumin [Mass/Vol] 4.8 g/dL Normal 3.5-5.0 [facility] Comment on above: Performed By: #### L 100.0100, M200.1000, L501.4021, L503.7505, L500.4050, L300.4310, L300.3900, L503.6005 ####[facility] [address] [place], [address] Albumin/Globulin [Mass ratio] 0.9 {ratio} Normal 0.9-2.4 [facility] Comment on above: Performed By: #### L 100.0100, M200.1000, L501.4021, L503.7505, L500.4050, L300.4310, L300.3900, L503.6005 ####[facility] [address] [place], [address] ALK PHOS 459 U/L High 35-104 [facility] Comment on above: Performed By: #### L 100.0100, M200.1000, L501.4021, L503.7505, L500.4050, L300.4310, L300.3900, L503.6005 ####[facility] [address] [place], [address] ALT [Catalytic activity/Vol] 336 U/L High <=34 [facility] Comment on above: Performed By: #### L 100.0100, M200.1000, L501.4021, L503.7505, L500.4050, L300.4310, L300.3900, L503.6005 ####[facility] [address] [place], [address] AST [Catalytic activity/Vol] 197 U/L High <=31 [facility] Comment on above: Performed By: #### L 100.0100, M200.1000, L501.4021, L503.7505, L500.4050, L300.4310, L300.3900, L503.6005 ####[facility] [address] [place], [address] Bilirubin [Mass/Vol] 1.93 mg/dL High 0.00-1.30 [facility] Comment on above: Performed By: #### L 100.0100, M200.1000, L501.4021, L503.7505, L500.4050, L300.4310, L300.3900, L503.6005 ####[facility] [address] [place], [address] BUN/CRE 17.9 RATIO Normal 10-20 [facility] Comment on above: Performed By: #### L 100.0100, M200.1000, L501.4021, L503.7505, L500.4050, L300.4310, L300.3900, L503.6005 ####[facility] [address] [place], [address] Calcium [Mass/Vol] 11.0 mg/dL Normal 7.6-11.0 [facility] Comment on above: Performed By: #### L 100.0100, M200.1000, L501.4021, L503.7505, L500.4050, L300.4310, L300.3900, L503.6005 ####[facility] [address] [place], [address] Chloride [Moles/Vol] 86 mmol/L Low 98-108 [facility] Comment on above: Performed By: #### L 100.0100, M200.1000, L501.4021, L503.7505, L500.4050, L300.4310, L300.3900, L503.6005 ####[facility] [address] [place], [address] CO2 [Moles/Vol] 17.0 mmol/L Low 21.0-32.0 [facility] Comment on above: Performed By: #### L 100.0100, M200.1000, L501.4021, L503.7505, L500.4050, L300.4310, L300.3900, L503.6005 ####[facility] [address] [place], [address] Creatinine [Mass/Vol] 3.70 mg/dL High 0.70-1.20 [facility] Comment on above: Performed By: #### L 100.0100, M200.1000, L501.4021, L503.7505, L500.4050, L300.4310, L300.3900, L503.6005 ####[facility] [address] [place], [address] ECRCL 22.19 ml/min Low 50-250 [facility] Comment on above: Performed By: #### L 100.0100, M200.1000, L501.4021, L503.7505, L500.4050, L300.4310, L300.3900, L503.6005 ####[facility] [address] [place], [place], [phone]) GAP 23 High 5-15 [facility] Comment on above: Performed By: #### L 100.0100, M200.1000, L501.4021, L503.7505, L500.4050, L300.4310, L300.3900, L503.6005 ####[facility] [address] [place], [place], [phone]) GFR/1.73 sq M.predicted among non-blacks MDRD (S/P/Bld) [Vol rate/Area] 15 mL/min/{1.73_m2} Low >60 [facility] Comment on above: Result Comment: mL/m in/1.73m2 CKD-EPI Creatinine Equation (2020) Performed By: #### L 100.0100, M200.1000, L501.4021, L503.7505, L500.4050, L300.4310, L300.3900, L503.6005 ####[facility] [address] [place], [place], [phone] Globulin (S) [Mass/Vol] 5.5 g/dL High 2.2-4.2 [facility] Comment on above: Performed By: #### L 100.0100, M200.1000, L501.4021, L503.7505, L500.4050, L300.4310, L300.3900, L503.6005 ####[facility] [address] [place], [place], [phone] Glucose [Mass/Vol] 168 mg/dL High 70-99 [facility] Comment on above: Performed By: #### L 100.0100, M200.1000, L501.4021, L503.7505, L500.4050, L300.4310, L300.3900, L503.6005 ####[facility] [address] [place], [address] Potassium [Moles/Vol] 4.1 mmol/L Normal 3.3-5.1 [facility] Comment on above: Performed By: #### L 100.0100, M200.1000, L501.4021, L503.7505, L500.4050, L300.4310, L300.3900, L503.6005 ####[facility] [address] [place], [address] Sodium [Moles/Vol] 126 mmol/L Low 133-145 [facility] Comment on above: Performed By: #### L 100.0100, M200.1000, L501.4021, L503.7505, L500.4050, L300.4310, L300.3900, L503.6005 ####[facility] [address] [place], [address] T PROT 10.3 g/dL High 5.9-8.4 [facility] Comment on above: Performed By: #### L 100.0100, M200.1000, L501.4021, L503.7505, L500.4050, L300.4310, L300.3900, L503.6005 ####[facility] [address] [place], [address] Urea nitrogen [Mass/Vol] 66 mg/dL High 4-19 [facility] Comment on above: Performed By: #### L 100.0100, M200.1000, L501.4021, L503.7505, L500.4050, L300.4310, L300.3900, L503.6005 ####[facility] [address] [place], [address] Emergency Department Summary on 11-13-2024 Emergency Department Summary Normal [facility] Erythrocyte Sed Rateon 11-13 SED RATE 87 mm/hr High 0-30 [facility] Comment on above: Performed By: #### L 501.6710, L101.9900 ####[facility] [address] [place], [address] Foot min 3 Viewson 5 Foot min 3 Views Normal [facility] H AND P Exam - Hospitaliston 11-13-2024 H&P Exam - Hospitalist Normal [facility] L501.4021on 11-13-2024 Trop T High Sen 20 ng/L High <=14 [facility] Comment on above: Performed By: #### L 501.4021 ####[facility] [address] [place], [place], [id number] Trop T High Sen 30 ng/L High <=14 [facility] Comment on above: Performed By: #### L 100.0100, M200.1000, L501.4021, L503.7505, L500.4050, L300.4310, L300.3900, L503.6005 ####[facility] [address] [place], [place], [address] L503.7505on 11-13-2024 Natriuretic peptide B (Bld) [Mass/Vol] 46 pg/mL Normal <=450 [facility] Comment on above: Result Comment: Hear t Failure Unlikely: < 300 pg/mLHeart Failure Likely< 50 Years: > 450 pg/mL50-75 Years: > 900 pg/mL>75 Years: > 1800 pg/mL Performed By: #### L 100.0100, M200.1000, L501.4021, L503.7505, L500.4050, L300.4310, L300.3900, L503.6005 ####[facility] [address] [place], [place], [id number] Lactic Acidon 11-13-2024 Lactate [Moles/Vol] 1.6 mmol/L Normal 0.0-2.0 [facility] Comment on above: Performed By: #### L 503.6005 ####[facility] [address] [place], [address] Lactate [Moles/Vol] 5.8 mmol/L Invalid Interpretation Code 0.0-2.0 [facility] Comment on above: Order Comment: Y Result Comment: Crit ical Result(s) Called at 1343: by: ROSSANA CARLSON. ??Results read back by same. Performed By: #### L 100.0100, M200.1000, L501.4021, L503.7505, L500.4050, L300.4310, L300.3900, L503.6005 ####[facility] [address] [place], [address] M100.678on 11-13-2024 M100.678 Pending SARS-CoV-2 (COVID 19) Negative INFLUENZA A Negative INFLUENZA B Negative RSV PCR Negative Normal [facility] Comment on above: Performed By: #### M 100.678, M100.2200, L400.0001 ####[facility] [address] [place], [address] Partial Thromboplast Timeon 11-13-2024 aPTT Coag (Bld) [Time] 73.1 s High 24.1-36.2 [facility] Comment on above: Performed By: #### L 300.4310 ####[facility] [address] [place], [address] aPTT Coag (Bld) [Time] 29.6 s Normal 24.1-36.2 [facility] Comment on above: Performed By: #### L 100.0100, M200.1000, L501.4021, L503.7505, L500.4050, L300.4310, L300.3900, L503.6005 ####[facility] [address] [place], [address] Prothrombin Time w/INRon INR Coag (PPP) [Relative time] 1.1 {INR} Normal [facility] Comment on above: Performed By: #### L 100.0100, M200.1000, L501.4021, L503.7505, L500.4050, L300.4310, L300.3900, L503.6005 ####[facility] [address] [place], [address] PT Coag (PPP) [Time] 13.9 s Normal 11.7-14.9 [facility] Comment on above: Performed By: #### L 100.0100, M200.1000, L501.4021, L503.7505, L500.4050, L300.4310, L300.3900, L503.6005 ####[facility] [address] [place], [address] Urinalysis, Completeon 11-13 CAST,HYALINE 10-25 SEEN Normal 0-5 [facility] Comment on above: Order Comment: COLLE CTOR TO SPECIFY Performed By: #### M 100.678, M100.2200, L400.0001 ####[facility] [address] [place], [address] EPI,SQUAMOUS 0-5 SEEN Normal 5-10 [facility] Comment on above: Order Comment: COLLE CTOR TO SPECIFY Performed By: #### M 100.678, M100.2200, L400.0001 ####[facility] [address] [place], [address] WBC 0-5 SEEN Normal 0-5 [facility] Comment on above: Order Comment: COLLE CTOR TO SPECIFY Performed By: #### M 100.678, M100.2200, L400.0001 ####[facility] [address] [place], [address] BACTERIA 0 SEEN Normal None Seen [facility] Comment on above: Order Comment: COLLE CTOR TO SPECIFY Performed By: #### M 100.678, M100.2200, L400.0001 ####[facility] [address] [place], [address] Mucus Ql (Urine sed) 0 SEEN Normal [facility] Comment on above: Order Comment: COLLE CTOR TO SPECIFY Performed By: #### M 100.678, M100.2200, L400.0001 ####[facility] [address] [place], [address] RBC 0 SEEN Normal 0-5 [facility] Comment on above: Order Comment: COLLE CTOR TO SPECIFY Performed By: #### M 100.678, M100.2200, L400.0001 ####[facility] [address] [place], [address] Basic Metabolic Profile (BMP )on 11-05-2024 BUN/CRE 4.7 RATIO Low 10-20 [facility] Comment on above: Performed By: #### L 500.2500 ####[facility] [address] [place], [address] Calcium [Mass/Vol] 8.6 mg/dL Normal 7.6-11.0 [facility] Comment on above: Performed By: #### L 500.2500 ####[facility] [address] [place], [address] Chloride [Moles/Vol] 110 mmol/L High 98-108 [facility] Comment on above: Performed By: #### L 500.2500 ####[facility] [address] [place], [address] CO2 [Moles/Vol] 19.7 mmol/L Low 21.0-32.0 [facility] Comment on above: Performed By: #### L 500.2500 ####[facility] [address] [place], [address] Creatinine [Mass/Vol] 0.94 mg/dL Normal 0.70-1.20 [facility] Comment on above: Performed By: #### L 500.2500 ####[facility] [address] [place], [address] ECRCL 89.97 ml/min Normal 50-250 [facility] Comment on above: Performed By: #### L 500.2500 ####[facility] [address] [place], [address] GAP 10 Normal 5-15 [facility] Comment on above: Performed By: #### L 500.2500 ####[facility] [address] [place], [address] GFR/1.73 sq M.predicted among non-blacks MDRD (S/P/Bld) [Vol rate/Area] 78 mL/min/{1.73_m2} Normal >60 [facility] Comment on above: Result Comment: mL/m in/1.73m2 CKD-EPI Creatinine Equation (2020) Performed By: #### L 500.2500 ####[facility] [address] [place], [address] Glucose [Mass/Vol] 85 mg/dL Normal 70-99 [facility] Comment on above: Performed By: #### L 500.2500 ####[facility] [address] [place], [address] Potassium [Moles/Vol] 3.7 mmol/L Normal 3.3-5.1 [facility] Comment on above: Performed By: #### L 500.2500 ####[facility] [address] [place], [address] Sodium [Moles/Vol] 139 mmol/L Normal 133-145 [facility] Comment on above: Performed By: #### L 500.2500 ####[facility] [address] [place], [address] Urea nitrogen [Mass/Vol] 4 mg/dL Normal 4-19 [facility] Comment on above: Performed By: #### L 500.2500 ####[facility] [address] [place], [address] Basic Metabolic Profile (BMP )on 11-04-2024 BUN/CRE 3.6 RATIO Low 10-20 [facility] Comment on above: Performed By: #### L 500.2500 ####[facility] [address] [place], [address] Calcium [Mass/Vol] 7.8 mg/dL Normal 7.6-11.0 [facility] Comment on above: Performed By: #### L 500.2500 ####[facility] [address] [place], [address] Chloride [Moles/Vol] 113 mmol/L High 98-108 [facility] Comment on above: Performed By: #### L 500.2500 ####[facility] [address] [place], [address] CO2 [Moles/Vol] 17.3 mmol/L Low 21.0-32.0 [facility] Comment on above: Performed By: #### L 500.2500 ####[facility] [address] [place], [address] Creatinine [Mass/Vol] 0.93 mg/dL Normal 0.70-1.20 [facility] Comment on above: Performed By: #### L 500.2500 ####[facility] [address] [place], [address] ECRCL 90.94 ml/min Normal 50-250 [facility] Comment on above: Performed By: #### L 500.2500 ####[facility] [address] [place], [address] GAP 9 Normal 5-15 [facility] Comment on above: Performed By: #### L 500.2500 ####[facility] [address] [place], [address] GFR/1.73 sq M.predicted among non-blacks MDRD (S/P/Bld) [Vol rate/Area] 79 mL/min/{1.73_m2} Normal >60 [facility] Comment on above: Result Comment: mL/m in/1.73m2 CKD-EPI Creatinine Equation (2020) Performed By: #### L 500.2500 ####[facility] [address] [place], [address] Glucose [Mass/Vol] 96 mg/dL Normal 70-99 [facility] Comment on above: Performed By: #### L 500.2500 ####[facility] [address] [place], [address] Potassium [Moles/Vol] 3.9 mmol/L Normal 3.3-5.1 [facility] Comment on above: Performed By: #### L 500.2500 ####[facility] [address] [place], [address] Sodium [Moles/Vol] 140 mmol/L Normal 133-145 [facility] Comment on above: Performed By: #### L 500.2500 ####[facility] [address] [place], [address] Urea nitrogen [Mass/Vol] 3 mg/dL Low 4-19 [facility] Comment on above: Performed By: #### L 500.2500 ####[facility] [address] [place], [address] Basic Metabolic Profile (BMP )on 11-03-2024 BUN/CRE 4.1 RATIO Low 10-20 [facility] Comment on above: Performed By: #### L 501.5200, L500.2500 ####[facility] [address] [place], [address] Calcium [Mass/Vol] 8.3 mg/dL Normal 7.6-11.0 [facility] Comment on above: Performed By: #### L 501.5200, L500.2500 ####[facility] [address] [place], [address] Chloride [Moles/Vol] 110 mmol/L High 98-108 [facility] Comment on above: Performed By: #### L 501.5200, L500.2500 ####[facility] [address] [place], [address] CO2 [Moles/Vol] 20.6 mmol/L Low 21.0-32.0 [facility] Comment on above: Performed By: #### L 501.5200, L500.2500 ####[facility] [address] [place], [address] Creatinine [Mass/Vol] 0.99 mg/dL Normal 0.70-1.20 [facility] Comment on above: Performed By: #### L 501.5200, L500.2500 ####[facility] [address] [place], [address] ECRCL 85.43 ml/min Normal 50-250 [facility] Comment on above: Performed By: #### L 501.5200, L500.2500 ####[facility] [address] [place], [address] GAP 9 Normal 5-15 [facility] Comment on above: Performed By: #### L 501.5200, L500.2500 ####[facility] [address] [place], [address] GFR/1.73 sq M.predicted among non-blacks MDRD (S/P/Bld) [Vol rate/Area] 74 mL/min/{1.73_m2} Normal >60 [facility] Comment on above: Result Comment: mL/m in/1.73m2 CKD-EPI Creatinine Equation (2020) Performed By: #### L 501.5200, L500.2500 ####[facility] [address] [place], [address] Glucose [Mass/Vol] 100 mg/dL High 70-99 [facility] Comment on above: Performed By: #### L 501.5200, L500.2500 ####[facility] [address] [place], [address] Potassium [Moles/Vol] 3.8 mmol/L Normal 3.3-5.1 [facility] Comment on above: Performed By: #### L 501.5200, L500.2500 ####[facility] [address] [place], [address] Sodium [Moles/Vol] 140 mmol/L Normal 133-145 [facility] Comment on above: Performed By: #### L 501.5200, L500.2500 ####[facility] [address] [place], [address] Urea nitrogen [Mass/Vol] 4 mg/dL Normal 4-19 [facility] Comment on above: Performed By: #### L 501.5200, L500.2500 ####[facility] [address] [place], [address] Magnesiumon 11-03-2024 Magnesium [Mass/Vol] 1.3 mg/dL Low 1.5-2.2 [facility] Comment on above: Performed By: #### L 501.5200, L500.2500 ####[facility] [address] [place], [address] Basic Metabolic Profile (BMP )on 11-02-2024 BUN/CRE 7.2 RATIO Low 10-20 [facility] Comment on above: Performed By: #### L 500.2500 ####[facility] [address] [place], [address] Calcium [Mass/Vol] 8.2 mg/dL Normal 7.6-11.0 [facility] Comment on above: Performed By: #### L 500.2500 ####[facility] [address] [place], [address] Chloride [Moles/Vol] 106 mmol/L Normal 98-108 [facility] Comment on above: Performed By: #### L 500.2500 ####[facility] [address] [place], [address] CO2 [Moles/Vol] 22.3 mmol/L Normal 21.0-32.0 [facility] Comment on above: Performed By: #### L 500.2500 ####[facility] [address] [place], [address] Creatinine [Mass/Vol] 0.96 mg/dL Normal 0.70-1.20 [facility] Comment on above: Performed By: #### L 500.2500 ####[facility] [address] [place], [address] ECRCL 88.09 ml/min Normal 50-250 [facility] Comment on above: Performed By: #### L 500.2500 ####[facility] [address] [place], [address] GAP 11 Normal 5-15 [facility] Comment on above: Performed By: #### L 500.2500 ####[facility] [address] [place], [address] GFR/1.73 sq M.predicted among non-blacks MDRD (S/P/Bld) [Vol rate/Area] 76 mL/min/{1.73_m2} Normal >60 [facility] Comment on above: Result Comment: mL/m in/1.73m2 CKD-EPI Creatinine Equation (2020) Performed By: #### L 500.2500 ####[facility] [address] [place], [address] Glucose [Mass/Vol] 79 mg/dL Normal 70-99 [facility] Comment on above: Performed By: #### L 500.2500 ####[facility] [address] [place], [address] Potassium [Moles/Vol] 3.0 mmol/L Low 3.3-5.1 [facility] Comment on above: Performed By: #### L 500.2500 ####[facility] [address] [place], [address] Sodium [Moles/Vol] 139 mmol/L Normal 133-145 [facility] Comment on above: Performed By: #### L 500.2500 ####[facility] [address] [place], [address] Urea nitrogen [Mass/Vol] 7 mg/dL Normal 4-19 [facility] Comment on above: Performed By: #### L 500.2500 ####[facility] [address] [place], [address] Basic Metabolic Profile (BMP )on 11-01-2024 BUN/CRE 8.6 RATIO Low 10-20 [facility] Comment on above: Performed By: #### L 500.2500 ####[facility] [address] [place], [address] Calcium [Mass/Vol] 8.5 mg/dL Normal 7.6-11.0 [facility] Comment on above: Performed By: #### L 500.2500 ####[facility] [address] [place], [address] Chloride [Moles/Vol] 102 mmol/L Normal 98-108 [facility] Comment on above: Performed By: #### L 500.2500 ####[facility] [address] [place], [address] CO2 [Moles/Vol] 24.0 mmol/L Normal 21.0-32.0 [facility] Comment on above: Performed By: #### L 500.2500 ####[facility] [address] [place], [address] Creatinine [Mass/Vol] 1.01 mg/dL Normal 0.70-1.20 [facility] Comment on above: Performed By: #### L 500.2500 ####[facility] [address] [place], [address] ECRCL 83.73 ml/min Normal 50-250 [facility] Comment on above: Performed By: #### L 500.2500 ####[facility] [address] [place], [address] GAP 10 Normal 5-15 [facility] Comment on above: Performed By: #### L 500.2500 ####[facility] [address] [place], [address] GFR/1.73 sq M.predicted among non-blacks MDRD (S/P/Bld) [Vol rate/Area] 72 mL/min/{1.73_m2} Normal >60 [facility] Comment on above: Result Comment: mL/m in/1.73m2 CKD-EPI Creatinine Equation (2020) Performed By: #### L 500.2500 ####[facility] [address] [place], [address] Glucose [Mass/Vol] 90 mg/dL Normal 70-99 [facility] Comment on above: Performed By: #### L 500.2500 ####[facility] [address] [place], [address] Potassium [Moles/Vol] 3.2 mmol/L Low 3.3-5.1 [facility] Comment on above: Performed By: #### L 500.2500 ####[facility] [address] [place], [address] Sodium [Moles/Vol] 136 mmol/L Normal 133-145 [facility] Comment on above: Performed By: #### L 500.2500 ####[facility] [address] [place], [address] Urea nitrogen [Mass/Vol] 9 mg/dL Normal 4-19 [facility] Comment on above: Performed By: #### L 500.2500 ####[facility] [address] [place], [address] Basic Metabolic Profile (BMP )on 10-31-2024 BUN/CRE 10.7 RATIO Normal 10-20 [facility] Comment on above: Performed By: #### L 100.0500, L500.2500 ####[facility] [address] [place], [address] Calcium [Mass/Vol] 8.6 mg/dL Normal 7.6-11.0 [facility] Comment on above: Performed By: #### L 100.0500, L500.2500 ####[facility] [address] [place], [address] Chloride [Moles/Vol] 100 mmol/L Normal 98-108 [facility] Comment on above: Performed By: #### L 100.0500, L500.2500 ####[facility] [address] [place], [address] CO2 [Moles/Vol] 21.6 mmol/L Normal 21.0-32.0 [facility] Comment on above: Performed By: #### L 100.0500, L500.2500 ####[facility] [address] [place], [address] Creatinine [Mass/Vol] 1.04 mg/dL Normal 0.70-1.20 [facility] Comment on above: Performed By: #### L 100.0500, L500.2500 ####[facility] [address] [place], [address] ECRCL 81.32 ml/min Normal 50-250 [facility] Comment on above: Performed By: #### L 100.0500, L500.2500 ####[facility] [address] [place], [address] GAP 13 Normal 5-15 [facility] Comment on above: Performed By: #### L 100.0500, L500.2500 ####[facility] [address] [place], [address] GFR/1.73 sq M.predicted among non-blacks MDRD (S/P/Bld) [Vol rate/Area] 69 mL/min/{1.73_m2} Normal >60 [facility] Comment on above: Result Comment: mL/m in/1.73m2 CKD-EPI Creatinine Equation (2020) Performed By: #### L 100.0500, L500.2500 ####[facility] [address] [place], [address] Glucose [Mass/Vol] 91 mg/dL Normal 70-99 [facility] Comment on above: Performed By: #### L 100.0500, L500.2500 ####[facility] [address] [place], [address] Potassium [Moles/Vol] 3.2 mmol/L Low 3.3-5.1 [facility] Comment on above: Performed By: #### L 100.0500, L500.2500 ####[facility] [address] [place], [address] Sodium [Moles/Vol] 135 mmol/L Normal 133-145 [facility] Comment on above: Performed By: #### L 100.0500, L500.2500 ####[facility] [address] [place], [address] Urea nitrogen [Mass/Vol] 11 mg/dL Normal 4-19 [facility] Comment on above: Performed By: #### L 100.0500, L500.2500 ####[facility] [address] [place], [address] CBC-Complete Blood Cnt No Di ffon 10-31-2024 Erythrocyte distribution width (RBC) [Ratio] 15.1 % High 11.6-14.6 [facility] Comment on above: Performed By: #### L 100.0500, L500.2500 ####[facility] [address] [place], [address] Hematocrit (Bld) [Volume fraction] 28.9 % Low 37-47 [facility] Comment on above: Performed By: #### L 100.0500, L500.2500 ####[facility] [address] [place], [address] Hemoglobin (Bld) [Mass/Vol] 8.9 g/dL Low 12.0-15.0 [facility] Comment on above: Performed By: #### L 100.0500, L500.2500 ####[facility] [address] [place], [address] MCH (RBC) [Entitic mass] 24.4 pg Low 27.0-32.0 [facility] Comment on above: Performed By: #### L 100.0500, L500.2500 ####[facility] [address] [place], [address] MCHC (RBC) [Mass/Vol] 30.8 g/dL Low 32-36 [facility] Comment on above: Performed By: #### L 100.0500, L500.2500 ####[facility] [address] [place], [address] MCV (RBC) [Entitic vol] 79.2 fL Low 81-99 [facility] Comment on above: Performed By: #### L 100.0500, L500.2500 ####[facility] [address] [place], [address] Platelet mean volume (Bld) [Entitic vol] 9.0 fL Normal 6.2-12.0 [facility] Comment on above: Performed By: #### L 100.0500, L500.2500 ####[facility] [address] [place], [address] Platelets (Bld) [#/Vol] 357 10*3/uL Normal 150-450 [facility] Comment on above: Performed By: #### L 100.0500, L500.2500 ####[facility] [address] [place], [address] RBC (Bld) [#/Vol] 3.65 10*6/uL Low 4.2-5.4 [facility] Comment on above: Performed By: #### L 100.0500, L500.2500 ####[facility] [address] [place], [address] RDW SD 43.3 fl Normal 35.1-43.9 [facility] Comment on above: Performed By: #### L 100.0500, L500.2500 ####[facility] [address] [place], [address] WBC (Bld) [#/Vol] 4.9 10*3/uL Normal 4.4-11.0 [facility] Comment on above: Performed By: #### L 100.0500, L500.2500 ####[facility] [address] [place], [address] Basic Metabolic Profile (BMP )on 10-30-2024 BUN/CRE 14.8 RATIO Normal 10-20 [facility] Comment on above: Performed By: #### L 100.0100, L500.2500 ####[facility] [address] [place], [address] Calcium [Mass/Vol] 8.6 mg/dL Normal 7.6-11.0 [facility] Comment on above: Performed By: #### L 100.0100, L500.2500 ####[facility] [address] [place], [address] Chloride [Moles/Vol] 100 mmol/L Normal 98-108 [facility] Comment on above: Performed By: #### L 100.0100, L500.2500 ####[facility] [address] [place], [address] CO2 [Moles/Vol] 22.0 mmol/L Normal 21.0-32.0 [facility] Comment on above: Performed By: #### L 100.0100, L500.2500 ####[facility] [address] [place], [address] Creatinine [Mass/Vol] 1.26 mg/dL High 0.70-1.20 [facility] Comment on above: Performed By: #### L 100.0100, L500.2500 ####[facility] [address] [place], [address] ECRCL 67.12 ml/min Normal 50-250 [facility] Comment on above: Performed By: #### L 100.0100, L500.2500 ####[facility] [address] [place], [address] GAP 14 Normal 5-15 [facility] Comment on above: Performed By: #### L 100.0100, L500.2500 ####[facility] [address] [place], [address] GFR/1.73 sq M.predicted among non-blacks MDRD (S/P/Bld) [Vol rate/Area] 55 mL/min/{1.73_m2} Low >60 [facility] Comment on above: Result Comment: mL/m in/1.73m2 CKD-EPI Creatinine Equation (2021) Performed By: #### L 100.0100, L500.2500 ####[facility] [address] [place], [address] Glucose [Mass/Vol] 96 mg/dL Normal 70-99 [facility] Comment on above: Performed By: #### L 100.0100, L500.2500 ####[facility] [address] [place], [address] Potassium [Moles/Vol] 3.6 mmol/L Normal 3.3-5.1 [facility] Comment on above: Performed By: #### L 100.0100, L500.2500 ####[facility] [address] [place], [address] Sodium [Moles/Vol] 135 mmol/L Normal 133-145 [facility] Comment on above: Performed By: #### L 100.0100, L500.2500 ####[facility] [address] [place], [address] Urea nitrogen [Mass/Vol] 19 mg/dL Normal 4-19 [facility] Comment on above: Performed By: #### L 100.0100, L500.2500 ####[facility] [address] [place], [address] CBC W/Diff, Automatedon 05-0 6-2025 Absolute Lymph 2.28 X10 3/uL Normal 0.83-4.51 [facility] Comment on above: Performed By: #### L 100.0100, L500.2500 ####[facility] [address] [place], [address] Absolute Neut 2.8 X10 3/uL Normal 2.0-7.7 [facility] Comment on above: Performed By: #### L 100.0100, L500.2500 ####[facility] [address] [place], [address] Basophils/100 WBC (Bld) 0.9 % Normal 0-1 [facility] Comment on above: Performed By: #### L 100.0100, L500.2500 ####[facility] [address] [place], [address] Eosinophils/100 WBC (Bld) 2.6 % Normal 0-5 [facility] Comment on above: Performed By: #### L 100.0100, L500.2500 ####[facility] [address] [place], [address] Erythrocyte distribution width (RBC) [Ratio] 15.1 % High 11.6-14.6 [facility] Comment on above: Performed By: #### L 100.0100, L500.2500 ####[facility] [address] [place], [address] Hematocrit (Bld) [Volume fraction] 28.3 % Low 37-47 [facility] Comment on above: Performed By: #### L 100.0100, L500.2500 ####[facility] [address] [place], [address] Hemoglobin (Bld) [Mass/Vol] 9.1 g/dL Low 12.0-15.0 [facility] Comment on above: Performed By: #### L 100.0100, L500.2500 ####[facility] [address] [place], [address] IG% 0.200 Normal 0.0-0.9 [facility] Comment on above: Result Comment: IG% - Immature Granulocytes (promyelocytes, myelocytes andmetamyelocytes) > 1% indicates that a LEFT SHIFT is Present. Performed By: #### L 100.0100, L500.2500 ####[facility] [address] [place], [address] Lymphocytes/100 WBC (Bld) 39.1 % Normal 19-41 [facility] Comment on above: Performed By: #### L 100.0100, L500.2500 ####[facility] [address] [place], [address] MCH (RBC) [Entitic mass] 24.7 pg Low 27.0-32.0 [facility] Comment on above: Performed By: #### L 100.0100, L500.2500 ####[facility] [address] [place], [address] MCHC (RBC) [Mass/Vol] 32.2 g/dL Normal 32-36 [facility] Comment on above: Performed By: #### L 100.0100, L500.2500 ####[facility] [address] [place], [address] MCV (RBC) [Entitic vol] 76.9 fL Low 81-99 [facility] Comment on above: Performed By: #### L 100.0100, L500.2500 ####[facility] [address] [place], [address] Monocytes/100 WBC (Bld) 8.9 % Normal 0-10 [facility] Comment on above: Performed By: #### L 100.0100, L500.2500 ####[facility] [address] [place], [address] Neutrophils/100 WBC (Bld) 48.3 % Normal 47-70 [facility] Comment on above: Performed By: #### L 100.0100, L500.2500 ####[facility] [address] [place], [address] Nucleated RBC (Bld) [#/Vol] 0 10*3/uL Normal 0-5 [facility] Comment on above: Performed By: #### L 100.0100, L500.2500 ####[facility] [address] [place], [address] Platelet mean volume (Bld) [Entitic vol] 9.0 fL Normal 6.2-12.0 [facility] Comment on above: Performed By: #### L 100.0100, L500.2500 ####[facility] [address] [place], [address] Platelets (Bld) [#/Vol] 403 10*3/uL Normal 150-450 [facility] Comment on above: Performed By: #### L 100.0100, L500.2500 ####[facility] [address] [place], [address] RBC (Bld) [#/Vol] 3.68 10*6/uL Low 4.2-5.4 [facility] Comment on above: Performed By: #### L 100.0100, L500.2500 ####[facility] [address] [place], [address] RDW SD 41.8 fl Normal 35.1-43.9 [facility] Comment on above: Performed By: #### L 100.0100, L500.2500 ####[facility] [address] [place], [address] WBC (Bld) [#/Vol] 5.8 10*3/uL Normal 4.4-11.0 [facility] Comment on above: Performed By: #### L 100.0100, L500.2500 ####[facility] [address] [place], [address] Basic Metabolic Profile (BMP )on 10-29-2024 BUN/CRE 15.4 RATIO Normal 10-20 [facility] Comment on above: Performed By: #### L 501.2300, L100.0100, L501.5200, L500.2500 ####[facility] [address] [place], [address] Calcium [Mass/Vol] 8.5 mg/dL Normal 7.6-11.0 [facility] Comment on above: Performed By: #### L 501.2300, L100.0100, L501.5200, L500.2500 ####[facility] [address] [place], [address] Chloride [Moles/Vol] 95 mmol/L Low 98-108 [facility] Comment on above: Performed By: #### L 501.2300, L100.0100, L501.5200, L500.2500 ####[facility] [address] [place], [address] CO2 [Moles/Vol] 23.1 mmol/L Normal 21.0-32.0 [facility] Comment on above: Performed By: #### L 501.2300, L100.0100, L501.5200, L500.2500 ####[facility] [address] [place], [address] Creatinine [Mass/Vol] 1.93 mg/dL High 0.70-1.20 [facility] Comment on above: Performed By: #### L 501.2300, L100.0100, L501.5200, L500.2500 ####[facility] [address] [place], [address] ECRCL 43.82 ml/min Low 50-250 [facility] Comment on above: Performed By: #### L 501.2300, L100.0100, L501.5200, L500.2500 ####[facility] [address] [place], [address] GAP 12 Normal 5-15 [facility] Comment on above: Performed By: #### L 501.2300, L100.0100, L501.5200, L500.2500 ####[facility] [address] [place], [address] GFR/1.73 sq M.predicted among non-blacks MDRD (S/P/Bld) [Vol rate/Area] 33 mL/min/{1.73_m2} Low >60 [facility] Comment on above: Result Comment: mL/m in/1.73m2 CKD-EPI Creatinine Equation (2020) Performed By: #### L 501.2300, L100.0100, L501.5200, L500.2500 ####[facility] [address] [place], [address] Glucose [Mass/Vol] 100 mg/dL High 70-99 [facility] Comment on above: Performed By: #### L 501.2300, L100.0100, L501.5200, L500.2500 ####[facility] [address] [place], [address] Potassium [Moles/Vol] 3.5 mmol/L Normal 3.3-5.1 [facility] Comment on above: Performed By: #### L 501.2300, L100.0100, L501.5200, L500.2500 ####[facility] [address] [place], [address] Sodium [Moles/Vol] 131 mmol/L Low 133-145 [facility] Comment on above: Performed By: #### L 501.2300, L100.0100, L501.5200, L500.2500 ####[facility] [address] [place], [address] Urea nitrogen [Mass/Vol] 30 mg/dL High 4-19 [facility] Comment on above: Performed By: #### L 501.2300, L100.0100, L501.5200, L500.2500 ####[facility] [address] [place], [address] CBC W/Diff, Automatedon 05-0 5-2024 Absolute Lymph 1.54 X10 3/uL Normal 0.83-4.51 [facility] Comment on above: Performed By: #### L 501.2300, L100.0100, L501.5200, L500.2500 ####[facility] [address] [place], [address] Absolute Neut 3.2 X10 3/uL Normal 2.0-7.7 [facility] Comment on above: Performed By: #### L 501.2300, L100.0100, L501.5200, L500.2500 ####[facility] [address] [place], [address] Basophils/100 WBC (Bld) 0.6 % Normal 0-1 [facility] Comment on above: Performed By: #### L 501.2300, L100.0100, L501.5200, L500.2500 ####[facility] [address] [place], [address] Eosinophils/100 WBC (Bld) 1.5 % Normal 0-5 [facility] Comment on above: Performed By: #### L 501.2300, L100.0100, L501.5200, L500.2500 ####[facility] [address] [place], [address] Erythrocyte distribution width (RBC) [Ratio] 15.2 % High 11.6-14.6 [facility] Comment on above: Performed By: #### L 501.2300, L100.0100, L501.5200, L500.2500 ####[facility] [address] [place], [address] Hematocrit (Bld) [Volume fraction] 27.2 % Low 37-47 [facility] Comment on above: Performed By: #### L 501.2300, L100.0100, L501.5200, L500.2500 ####[facility] [address] [place], [address] Hemoglobin (Bld) [Mass/Vol] 8.8 g/dL Low 12.0-15.0 [facility] Comment on above: Performed By: #### L 501.2300, L100.0100, L501.5200, L500.2500 ####[facility] [address] [place], [address] IG% 0.400 Normal 0.0-0.9 [facility] Comment on above: Result Comment: IG% - Immature Granulocytes (promyelocytes, myelocytes andmetamyelocytes) > 1% indicates that a LEFT SHIFT is Present. Performed By: #### L 501.2300, L100.0100, L501.5200, L500.2500 ####[facility] [address] [place], [address] Lymphocytes/100 WBC (Bld) 28.9 % Normal 19-41 [facility] Comment on above: Performed By: #### L 501.2300, L100.0100, L501.5200, L500.2500 ####[facility] [address] [place], [address] MCH (RBC) [Entitic mass] 24.4 pg Low 27.0-32.0 [facility] Comment on above: Performed By: #### L 501.2300, L100.0100, L501.5200, L500.2500 ####[facility] [address] [place], [address] MCHC (RBC) [Mass/Vol] 32.4 g/dL Normal 32-36 [facility] Comment on above: Performed By: #### L 501.2300, L100.0100, L501.5200, L500.2500 ####[facility] [address] [place], [address] MCV (RBC) [Entitic vol] 75.3 fL Low 81-99 [facility] Comment on above: Performed By: #### L 501.2300, L100.0100, L501.5200, L500.2500 ####[facility] [address] [place], [address] Monocytes/100 WBC (Bld) 9.4 % Normal 0-10 [facility] Comment on above: Performed By: #### L 501.2300, L100.0100, L501.5200, L500.2500 ####[facility] [address] [place], [address] Neutrophils/100 WBC (Bld) 59.2 % Normal 47-70 [facility] Comment on above: Performed By: #### L 501.2300, L100.0100, L501.5200, L500.2500 ####[facility] [address] [place], [address] Nucleated RBC (Bld) [#/Vol] 0 10*3/uL Normal 0-5 [facility] Comment on above: Performed By: #### L 501.2300, L100.0100, L501.5200, L500.2500 ####[facility] [address] [place], [address] Platelet mean volume (Bld) [Entitic vol] 9.3 fL Normal 6.2-12.0 [facility] Comment on above: Performed By: #### L 501.2300, L100.0100, L501.5200, L500.2500 ####[facility] [address] [place], [address] Platelets (Bld) [#/Vol] 396 10*3/uL Normal 150-450 [facility] Comment on above: Performed By: #### L 501.2300, L100.0100, L501.5200, L500.2500 ####[facility] [address] [place], [address] RBC (Bld) [#/Vol] 3.61 10*6/uL Low 4.2-5.4 [facility] Comment on above: Performed By: #### L 501.2300, L100.0100, L501.5200, L500.2500 ####[facility] [address] [place], [address] RDW SD 41.3 fl Normal 35.1-43.9 [facility] Comment on above: Performed By: #### L 501.2300, L100.0100, L501.5200, L500.2500 ####[facility] [address] [place], [address] WBC (Bld) [#/Vol] 5.3 10*3/uL Normal 4.4-11.0 [facility] Comment on above: Performed By: #### L 501.2300, L100.0100, L501.5200, L500.2500 ####[facility] [address] [facility] [place], [address] CDIFF (PCR)on 10-29-2024 CDIFF Is the patient recei ving laxatives? N New/unexplained onset of 3 or more stools in past 24 hrs? Y Pending 027 027 NAP1-B1 Presumptive Negative *for epidemiolologic???use C. Diff PCR Negative- No toxigenic C. Diff Detected Normal [facility] Comment on above: Performed By: #### M 100.6796 ####[facility] [address] [facility] [place], [address] ENTERIC PATHOGEN PANEL STOOL on 10-29-2024 EP PANEL CAMPYLOBACTER Not Detected Norovirus Not Detected Rotavirus Not Detected Salmonella Not Detected Shiga Toxin Not Detected Shigella sp. Not Detected VIBRIO Not Detected Yersinia Not Detected Normal [facility] Comment on above: Performed By: #### M 100.637 ####[facility] [address] [facility] [place], [address] Magnesiumon 10-29-2024 Magnesium [Mass/Vol] 1.5 mg/dL Normal 1.5-2.2 [facility] Comment on above: Performed By: #### L 501.2300, L100.0100, L501.5200, L500.2500 ####[facility] [address] [place], [address] Phosphoruson 10-29-2024 Phosphate [Mass/Vol] 4.0 mg/dL Normal 2.7-4.5 [facility] Comment on above: Performed By: #### L 501.2300, L100.0100, L501.5200, L500.2500 ####[facility] [address] [place], [address] Basic Metabolic Profile (BMP )on 10-28-2024 BUN/CRE 10.4 RATIO Normal 10-20 [facility] Comment on above: Performed By: #### L 500.2500, L100.0100, L501.5200 ####[facility] [address] [place], [address] Calcium [Mass/Vol] 10.5 mg/dL Normal 7.6-11.0 [facility] Comment on above: Performed By: #### L 500.2500, L100.0100, L501.5200 ####[facility] [address] [place], [address] Chloride [Moles/Vol] 81 mmol/L Low 98-108 [facility] Comment on above: Performed By: #### L 500.2500, L100.0100, L501.5200 ####[facility] [address] [place], [address] CO2 [Moles/Vol] 20.9 mmol/L Low 21.0-32.0 [facility] Comment on above: Performed By: #### L 500.2500, L100.0100, L501.5200 ####[facility] [address] [place], [address] Creatinine [Mass/Vol] 3.36 mg/dL High 0.70-1.20 [facility] Comment on above: Performed By: #### L 500.2500, L100.0100, L501.5200 ####[facility] [address] [place], [address] ECRCL 24.64 ml/min Low 50-250 [facility] Comment on above: Performed By: #### L 500.2500, L100.0100, L501.5200 ####[facility] [address] [place], [address] GAP 26 High 5-15 [facility] Comment on above: Performed By: #### L 500.2500, L100.0100, L501.5200 ####[facility] [address] [place], [address] GFR/1.73 sq M.predicted among non-blacks MDRD (S/P/Bld) [Vol rate/Area] 17 mL/min/{1.73_m2} Low >60 [facility] Comment on above: Result Comment: mL/m in/1.73m2 CKD-EPI Creatinine Equation (2020) Performed By: #### L 500.2500, L100.0100, L501.5200 ####[facility] [address] [place], [address] Glucose [Mass/Vol] 165 mg/dL High 70-99 [facility] Comment on above: Performed By: #### L 500.2500, L100.0100, L501.5200 ####[facility] [address] [place], [address] Potassium [Moles/Vol] 4.5 mmol/L Normal 3.3-5.1 [facility] Comment on above: Result Comment: Hemo lysis present, Results??could be affected.?? Performed By: #### L 500.2500, L100.0100, L501.5200 ####[facility] [address] [place], [address] Sodium [Moles/Vol] 127 mmol/L Low 133-145 [facility] Comment on above: Performed By: #### L 500.2500, L100.0100, L501.5200 ####[facility] [address] [place], [address] Urea nitrogen [Mass/Vol] 35 mg/dL High 4-19 [facility] Comment on above: Performed By: #### L 500.2500, L100.0100, L501.5200 ####[facility] [address] [place], [address] CBC W/Diff, Automatedon 05-0 -2024 Absolute Lymph 2.13 X10 3/uL Normal 0.83-4.51 [facility] Comment on above: Performed By: #### L 500.2500, L100.0100, L501.5200 ####[facility] [address] [place], [address] Absolute Neut 9.2 X10 3/uL High 2.0-7.7 [facility] Comment on above: Performed By: #### L 500.2500, L100.0100, L501.5200 ####[facility] [address] [place], [address] Basophils/100 WBC (Bld) 0.4 % Normal 0-1 [facility] Comment on above: Performed By: #### L 500.2500, L100.0100, L501.5200 ####[facility] [address] [place], [address] Eosinophils/100 WBC (Bld) 0.1 % Normal 0-5 [facility] Comment on above: Performed By: #### L 500.2500, L100.0100, L501.5200 ####[facility] [address] [place], [address] Erythrocyte distribution width (RBC) [Ratio] 15.5 % High 11.6-14.6 [facility] Comment on above: Performed By: #### L 500.2500, L100.0100, L501.5200 ####[facility] [address] [place], [address] Hematocrit (Bld) [Volume fraction] 38.3 % Normal 37-47 [facility] Comment on above: Performed By: #### L 500.2500, L100.0100, L501.5200 ####[facility] [address] [place], [address] Hemoglobin (Bld) [Mass/Vol] 12.2 g/dL Normal 12.0-15.0 [facility] Comment on above: Performed By: #### L 500.2500, L100.0100, L501.5200 ####[facility] [address] [place], [address] IG% 0.500 Normal 0.0-0.9 [facility] Comment on above: Result Comment: IG% - Immature Granulocytes (promyelocytes, myelocytes andmetamyelocytes) > 1% indicates that a LEFT SHIFT is Present. Performed By: #### L 500.2500, L100.0100, L501.5200 ####[facility] [address] [place], [address] Lymphocytes/100 WBC (Bld) 17.1 % Low 19-41 [facility] Comment on above: Performed By: #### L 500.2500, L100.0100, L501.5200 ####[facility] [address] [place], [address] MCH (RBC) [Entitic mass] 24.4 pg Low 27.0-32.0 [facility] Comment on above: Performed By: #### L 500.2500, L100.0100, L501.5200 ####[facility] [address] [place], [address] MCHC (RBC) [Mass/Vol] 31.9 g/dL Low 32-36 [facility] Comment on above: Performed By: #### L 500.2500, L100.0100, L501.5200 ####[facility] [address] [place], [address] MCV (RBC) [Entitic vol] 76.4 fL Low 81-99 [facility] Comment on above: Performed By: #### L 500.2500, L100.0100, L501.5200 ####[facility] [address] [place], [address] Monocytes/100 WBC (Bld) 7.7 % Normal 0-10 [facility] Comment on above: Performed By: #### L 500.2500, L100.0100, L501.5200 ####[facility] [address] [place], [address] Neutrophils/100 WBC (Bld) 74.2 % High 47-70 [facility] Comment on above: Performed By: #### L 500.2500, L100.0100, L501.5200 ####[facility] [address] [place], [address] Nucleated RBC (Bld) [#/Vol] 0 10*3/uL Normal 0-5 [facility] Comment on above: Performed By: #### L 500.2500, L100.0100, L501.5200 ####[facility] [address] [place], [address] Platelet mean volume (Bld) [Entitic vol] 10.1 fL Normal 6.2-12.0 [facility] Comment on above: Performed By: #### L 500.2500, L100.0100, L501.5200 ####[facility] [address] [place], [address] Platelets (Bld) [#/Vol] 675 10*3/uL High 150-450 [facility] Comment on above: Performed By: #### L 500.2500, L100.0100, L501.5200 ####[facility] [address] [place], [address] RBC (Bld) [#/Vol] 5.01 10*6/uL Normal 4.2-5.4 [facility] Comment on above: Performed By: #### L 500.2500, L100.0100, L501.5200 ####[facility] [address] [place], [address] RDW SD 41.5 fl Normal 35.1-43.9 [facility] Comment on above: Performed By: #### L 500.2500, L100.0100, L501.5200 ####[facility] [address] [place], [address] WBC (Bld) [#/Vol] 12.4 10*3/uL High 4.4-11.0 [facility] Comment on above: Performed By: #### L 500.2500, L100.0100, L501.5200 ####[facility] [address] [place], [address] Emergency Department Summary on 10-28-2024 Emergency Department Summary Normal [facility] H AND P Exam - Hospitaliston 10-28-2024 H&P Exam - Hospitalist Normal [facility] Magnesiumon 10-28-2024 Magnesium [Mass/Vol] 1.7 mg/dL Normal 1.5-2.2 [facility] Comment on above: Performed By: #### L 500.2500, L100.0100, L501.5200 ####[facility] [address] [place], [address] ALLIED HEALTHon 10-26-2024 ALLIED HEALTH HNO ID: [id number] Author: STEFANY CALVERT RN Service: Wound/Ostomy Author [...] x 1 1/4 Oval (Coloplast 2Pc Pouch #[id number] Convex Wafer #[id number]) Placed Attached 2pc Pouch Over Over Stoma [...] Independent Recommended Supplies: Coloplast 2pc High Output #35869 Pouch attached to drainage bag Coloplast #[id number] Convex Wafer Cut To 1 1/2 x 1 1/4 Oval [place] #[id number] Large Barrier Ring [place] Barrier Extenders # [id number] Please Advise Wound Care [phone] If You Have Difficulty Getting Supplies From Cart Room. Patient tolerated the change well. Supplies at bedside. If additional ostomy supplies are needed, please call [facility] ([phone]) for above mentioned supplies. If supplies are unavailable in [facility] [employer], please secure chat [facility] Nurses or call extension [phone] to request more supplies. Normal [facility] CBC panel Auto (Bld)on 10-26 Erythrocyte distribution width (RBC) [Ratio] 14.7 % Normal 11.5-15.0 [facility] Comment on above: Order Comment: Speci men Type: BLOOD SPECIMEN Ordering Facility: [facility] Address: [address] [place] [address] Performed By: #### 5 7021-8 #### [facility] CLIA [id number] [address] [place] [address] [place] Hematocrit (Bld) [Volume fraction] 29.9 % Low 36.0-46.0 [facility] Comment on above: Order Comment: Speci men Type: BLOOD SPECIMEN Ordering Facility: [facility] Address: [address] [place] [address] Performed By: #### 5 7021-8 #### [facility] CLIA [id number] [address] [place] [address] [place] Hemoglobin (Bld) [Mass/Vol] 9.2 g/dL Low 11.5-15.5 [facility] Comment on above: Order Comment: Speci men Type: BLOOD SPECIMEN Ordering Facility: [facility] Address: [address] [place] [address] Performed By: #### 5 7021-8 #### [facility] CLIA [id number] [address] [place] [address] [place] MCH (RBC) [Entitic mass] 24.1 pg Low 26.0-34.0 [facility] Comment on above: Order Comment: Speci men Type: BLOOD SPECIMEN [facility] [facility] Address: [address] [place] [address] Performed By: #### 5 7021-8 #### [facility] CLIA [id number] [address] [place] [address] MCHC (RBC) [Mass/Vol] 30.8 g/dL Normal 30.5-36.0 [facility] Comment on above: Order Comment: Speci men Type: BLOOD SPECIMEN Ordering Facility: [facility] Address: [address] [place] [address] Performed By: #### 5 7021-8 #### [facility] CLIA [id number] [address] [place] [address] [place] MCV (RBC) [Entitic vol] 78.5 fL Low 80.0-100.0 [facility] Comment on above: Order Comment: Speci men Type: BLOOD SPECIMEN Ordering Facility: [facility] Address: [address] [place] [address] Performed By: #### 5 7021-8 #### [facility] CLIA [id number] [address] [place] [address] [place] Nucleated RBC (Bld) [#/Vol] 10*3/uL Normal <0.01 [facility] Comment on above: Order Comment: Speci men Type: BLOOD SPECIMEN Ordering Facility: [facility] Address: [address] [place] [address] Performed By: #### 5 7021-8 #### [facility] CLIA [id number] [address] [place] [address] [place] Platelet mean volume (Bld) [Entitic vol] 8.9 fL Low 9.0-12.7 [facility] Comment on above: Order Comment: Speci men Type: BLOOD SPECIMEN Ordering Facility: [facility] Address: [address] [place] [address] Performed By: #### 5 7021-8 #### [facility] CLIA [id number] [address] [place] [address] [place] Platelets (Bld) [#/Vol] 371 10*3/uL Normal 150-400 [facility] Comment on above: Order Comment: Speci men Type: BLOOD SPECIMEN Ordering Facility: [facility] Address: [address] [place], [place] [address] Performed By: #### 5 7021-8 #### [facility] CLIA [id number] [address] [place] [address] [place] RBC (Bld) [#/Vol] 3.81 10*6/uL Low 3.90-5.20 [facility] Comment on above: Order Comment: Speci men Type: BLOOD SPECIMEN Ordering Facility: [facility] Address: [address] [place], [place] [address] Performed By: #### 5 7021-8 #### [facility] CLIA [id number] [address] [place], [place] [address] [facility] WBC (Bld) [#/Vol] 4.79 10*3/uL Normal 3.70-11.00 [facility] Comment on above: Order Comment: Speci men Type: BLOOD SPECIMEN Ordering Facility: [facility] Address: [address] [place], [place] [address] Performed By: #### 5 7021-8 #### [facility] CLIA [id number] [address] [place], [place] [address] [facility] CNDSon 10-26-2024 [facility] HNO ID: [id number] Author: WILLIS EMMANUEL DO Service: Hospital Medicine Author Type: Physician Type: Discharge Summary Filed: 10/26/2024 15:42 Note Text: DISCHARGE SUMMARY PATIENT NAME: Daly Evans ADMISSION DATE: 10/19/2024 DISCHARGE DATE: 10/26/2024 ATTENDING [...] resection with ostomy Patient sent to an [facility] ED due to high output ostomy She had evidence of renal failure as well as multiple electrolyte abnormalities (see below) Gastroenterology consulted C. diff negative Stool PCR negative Home Imodium dose was increased Ostomy care offered Output did lessen Patient will follow-up at [facility] with her surgeon Dr. Smith as well as transplant surgeon Dr. Devine Acute kidney injury Creatinine 2.8 in [facility] ED Likely secondary to GI losses Patient given IV fluids Creatinine normalized by discharge Hyponatremia Sodium 130 in [facility] ED Likely secondary to GI losses Patient given IV fluids Hypokalemia Potassium 3.3 in [facility] ED Likely secondary to GI losses Supplementation provided Rx for potassium chloride provided on discharge Left foot discoloration, ?gangrene Left toes are black, per patient this began while she was at [facility] Chart review indicates she had bilateral lower [...] These medications were sent to e- [id number] [place] [address] [facility] [address] [facility] (more content not included)... Normal [facility] Comprehensive metabolic 2000 panelon 10-26-2024 Albumin [Mass/Vol] 3.0 g/dL Low 3.2-5.0 [facility] Comment on above: Order Comment: Speci men Type: BLOOD SPECIMEN Ordering Facility: [facility] Address: [address] [place] [address] Performed By: #### 5 7021-8 #### [facility] CLIA [id number] [address] [place] [address] [place] ALP [Catalytic activity/Vol] 125 U/L High 45-117 [facility] Comment on above: Order Comment: Speci men Type: BLOOD SPECIMEN Ordering Facility: [facility] Address: [address] [place] [address] Performed By: #### 5 7021-8 #### [facility] CLIA [id number] [address] [place] [address] [place] ALT [Catalytic activity/Vol] 16 U/L Normal 13-61 [facility] Comment on above: Order Comment: Speci men Type: BLOOD SPECIMEN Ordering Facility: [facility] Address: [address] [place] [address] Result Comment: Resu lts may be falsely depressed after the administration of Sulfasalazine and/or Sulfapyridine. Performed By: #### 5 7021-8 #### [facility] CLIA [id number] [address] [place] [address] [place] Anion gap [Moles/Vol] 9 mmol/L Normal 5-16 [facility] Comment on above: Order Comment: Speci men Type: BLOOD SPECIMEN Ordering Facility: [facility] Address: [address] [place] [address] Performed By: #### 5 7021-8 #### [facility] CLIA [id number] [address] [place] [address] [place] AST [Catalytic activity/Vol] 24 U/L Normal 8-34 [facility] Comment on above: Order Comment: Speci men Type: BLOOD SPECIMEN Ordering Facility: [facility] Address: [address] [place] [address] Result Comment: Resu lts may be falsely depressed after the administration of Sulfasalazine and/or Sulfapyridine. Performed By: #### 5 7021-8 #### [facility] CLIA [id number] [address] [place] [address] [place] Bilirubin [Mass/Vol] 1.2 mg/dL High 0.2-1.0 [facility] Comment on above: Order Comment: Speci men Type: BLOOD SPECIMEN Ordering Facility: [facility] Address: [address] [place] [address] Performed By: #### 5 7021-8 #### [facility] CLIA [id number] [address] [place], [place] [address] [place] Calcium [Mass/Vol] 9.5 mg/dL Normal 8.5-10.5 [facility] Comment on above: Order Comment: Speci men Type: BLOOD SPECIMEN Ordering Facility: [facility] Address: [address] [place] [address] Performed By: #### 5 7021-8 #### [facility] CLIA [id number] [address] [place] [address] [place] Chloride [Moles/Vol] 94 mmol/L Low 98-107 [facility] Comment on above: Order Comment: Speci men Type: BLOOD SPECIMEN Ordering Facility: [facility] Address: [address] [place] [address] Performed By: #### 5 7021-8 #### [facility] CLIA [id number] [address] [place], [place] [address] [place] CO2 [Moles/Vol] 30 mmol/L Normal 21-32 [facility] Comment on above: Order Comment: Speci men Type: BLOOD SPECIMEN Ordering Facility: [facility] Address: [address] [place] [address] Performed By: #### 5 7021-8 #### [facility] CLIA [id number] [address] [place], [place] [address] [place] Creatinine [Mass/Vol] 0.92 mg/dL Normal 0.51-0.95 [facility] Comment on above: Order Comment: Speci men Type: BLOOD SPECIMEN Ordering Facility: [facility] Address: [address] [place] [address] Result Comment: Marissa ents receiving either N-Acetylcysteine (NAC) or Metamizole prior to venipuncture, may have falsely depressed results. Performed By: #### 5 7021-8 #### [facility] CLIA [id number] [address] [place] [address] [place] Creatinine and Glomerular filtration rate.predicted panel (S/P/Bld) 80 mL/min/1.73m??? Normal >=60 [facility] Comment on above: Order Comment: Dora finch Type: BLOOD SPECIMEN Ordering Facility: [facility] Address: [address] [place] [address] Result Comment: Zeny mated Glomerular Filtration Rate [...] GFR. Performed By: #### 5 7021-8 #### [facility] CLIA [id number] [address] [place] [address] [place] Glucose [Mass/Vol] 100 mg/dL Normal 70-100 [facility] Comment on above: Order Comment: Dora finch Type: BLOOD SPECIMEN Ordering Facility: [facility] Address: [address] [place] [address] Result Comment: The [place] Diabetes Association (ADA) provides guidance for cutoff [...] Standards of Medical Care in Diabetes 2016, [place] [employer]. Diabetes Care. 2016.39(Suppl 1). Results may be falsely elevated after the administration of Sulfapyridine. Results may be falsely depressed after the administration of Sulfasalazine. Performed By: #### 5 7021-8 #### [facility] CLIA [id number] [address] [place] [address] [place] Potassium [Moles/Vol] 3.4 mmol/L Low 3.5-5.1 [facility] Comment on above: Order Comment: Speci men Type: BLOOD SPECIMEN Ordering Facility: [facility] Address: [address] [place] [address] Performed By: #### 5 7021-8 #### [facility] CLIA [id number] [address] [place] [address] [place] Protein [Mass/Vol] 7.3 g/dL Normal 6.0-8.5 [facility] Comment on above: Order Comment: Speci men Type: BLOOD SPECIMEN Ordering Facility: [facility] Address: [address] [place] [address] Performed By: #### 5 7021-8 #### [facility] CLIA [id number] [address] [place] [address] [place] Sodium [Moles/Vol] 133 mmol/L Low 136-145 [facility] Comment on above: Order Comment: Speci men Type: BLOOD SPECIMEN Ordering Facility: [facility] Address: [address] [place] [address] Performed By: #### 5 7021-8 #### [facility] CLIA [id number] [address] [place] [address] [place] Urea nitrogen [Mass/Vol] 8 mg/dL Normal 7-26 [facility] Comment on above: Order Comment: Speci men Type: BLOOD SPECIMEN Ordering Facility: [facility] Address: [address] [place], [place] [address] Performed By: #### 5 7021-8 #### [facility] CLIA [id number] [address] [place] [address] [place] Magnesium SerPl-mCncon 10-26 Magnesium [Mass/Vol] 1.5 mg/dL Low 1.6-2.6 [facility] Comment on above: Order Comment: Speci men Type: BLOOD SPECIMEN Ordering Facility: [facility] Address: [address] [place] [address] Performed By: #### 2 4321-2 #### [facility] CLIA [id number] [address] [place] [address] [place] [facility] ALLIED HEALTHon 10-25-2024 ALLIED HEALTH HNO ID: [id number] Author: STEFANY CALVERT RN Service: Wound/Ostomy Author [...] nursing Recommended Supplies: Coloplast 2pc High Output #42582 Pouch attached to drainage bag Coloplast #88016 Convex Wafer Cut To 1 1/2 x 1 1/4 Oval Augustine #6715 Small Barrier Ring Augustine Barrier Extenders # [id number] Please Advise Wound Care [phone] If You Have Difficulty Getting Supplies From Cart Room. If additional ostomy supplies are needed, please call [facility] ([phone]) for above mentioned supplies. If supplies are unavailable in [facility], please secure chat [facility] Wound Care Nurses or call extension [phone] to request more supplies. [facility] ALLIED HEALTH HNO ID: [id number] Author: STEFANY CALVERT RN Service: Wound/Ostomy Author [...] Last Pouch This AM. I Advised Covering NATHANAEL Arita That The Supplies Are Available Through Cart/Supply Room In Basement. Recommended Supplies: Coloplast 2pc High Output #66686 Pouch attached to drainage bag Coloplast #66542 Flat Wafer [place] #8815 Small Barrier Ring [place] Barrier Extenders # [id number] Please Advise Wound Care [phone] If You Have Difficulty Getting Supplies From Cart Room. [facility] CBC panel Auto (Bld)on 10-25 Erythrocyte distribution width (RBC) [Ratio] 14.8 % Normal 11.5-15.0 [facility] Comment on above: Order Comment: Speci men Type: BLOOD SPECIMEN Ordering Facility: [facility] Address: [address] [place] [address] Performed By: #### 5 7021-8 #### [facility] CLIA [id number] [address] [place] [address] [place] Hematocrit (Bld) [Volume fraction] 33.3 % Low 36.0-46.0 [facility] Comment on above: Order Comment: Speci men Type: BLOOD SPECIMEN Ordering Facility: [facility] Address: [address] [place] [address] Performed By: #### 5 7021-8 #### [facility] CLIA [id number] [address] [place] [address] [place] Hemoglobin (Bld) [Mass/Vol] 10.3 g/dL Low 11.5-15.5 [facility] Comment on above: Order Comment: Speci men Type: BLOOD SPECIMEN Ordering Facility: [facility] Address: [address] [place] [address] Performed By: #### 5 7021-8 #### [facility] CLIA [id number] [address] [place] [address] [place] MCH (RBC) [Entitic mass] 24.0 pg Low 26.0-34.0 [facility] Comment on above: Order Comment: Speci men Type: BLOOD SPECIMEN Ordering Facility: [facility] Address: [address] [place] [address] Performed By: #### 5 7021-8 #### [facility] CLIA [id number] [address] [place] [address] [place] MCHC (RBC) [Mass/Vol] 30.9 g/dL Normal 30.5-36.0 [facility] Comment on above: Order Comment: Speci men Type: BLOOD SPECIMEN Ordering Facility: [facility] Address: [address] [place] [address] Performed By: #### 5 7021-8 #### [facility] CLIA [id number] [address] [place] [address] [place] MCV (RBC) [Entitic vol] 77.6 fL Low 80.0-100.0 [facility] Comment on above: Order Comment: Speci men Type: BLOOD SPECIMEN Ordering Facility: [facility] Address: [address] [place] [address] Performed By: #### 5 7021-8 #### [facility] CLIA [id number] [address] [place] [address] [place] Nucleated RBC (Bld) [#/Vol] 10*3/uL Normal <0.01 [facility] Comment on above: Order Comment: Speci men Type: BLOOD SPECIMEN Ordering Facility: [facility] Address: [address] [place] [address] Performed By: #### 5 7021-8 #### [facility] CLIA [id number] [address] [place] [address] [place] Platelet mean volume (Bld) [Entitic vol] 9.3 fL Normal 9.0-12.7 [facility] Comment on above: Order Comment: Speci men Type: BLOOD SPECIMEN Ordering Facility: [facility] Address: [address] [place] [address] Performed By: #### 5 7021-8 #### [facility] CLIA [id number] [address] [place] [address] [place] Platelets (Bld) [#/Vol] 364 10*3/uL Normal 150-400 [facility] Comment on above: Order Comment: Speci men Type: BLOOD SPECIMEN Ordering Facility: [facility] Address: [address] [place] [address] Performed By: #### 5 7021-8 #### [facility] CLIA [id number] [address] [place] [address] [place] RBC (Bld) [#/Vol] 4.29 10*6/uL Normal 3.90-5.20 [facility] Comment on above: Order Comment: Speci men Type: BLOOD SPECIMEN Ordering Facility: [facility] Address: [address] [place] [address] Performed By: #### 5 7021-8 #### [facility] CLIA [id number] [address] [place] [address] [place] WBC (Bld) [#/Vol] 6.18 10*3/uL Normal 3.70-11.00 [facility] Comment on above: Order Comment: Speci men Type: BLOOD SPECIMEN Ordering Facility: [facility] Address: [address] [place] [address] Performed By: #### 5 7021-8 #### [facility] CLIA [id number] [address] [place], [place] [address] [facility] Comprehensive metabolic 2000 panelon 10-25-2024 Albumin [Mass/Vol] 3.0 g/dL Low 3.2-5.0 [facility] Comment on above: Order Comment: Speci men Type: BLOOD SPECIMEN Ordering Facility: [facility] Address: [address] [place] [address] Performed By: #### 5 7021-8 #### [facility] CLIA [id number] [address] [place] [address] [place] ALP [Catalytic activity/Vol] 137 U/L High 45-117 [facility] Comment on above: Order Comment: Speci men Type: BLOOD SPECIMEN Ordering Facility: [facility] Address: [address] [place] [address] Performed By: #### 5 7021-8 #### [facility] CLIA [id number] [address] [place] [address] [place] ALT [Catalytic activity/Vol] 14 U/L Normal 13-61 [facility] Comment on above: Order Comment: Speci men Type: BLOOD SPECIMEN Ordering Facility: [facility] Address: [address] [place] [address] Result Comment: Resu lts may be falsely depressed after the administration of Sulfasalazine and/or Sulfapyridine. Performed By: #### 5 7021-8 #### [facility] CLIA [id number] [address] [place] [address] [place] Anion gap [Moles/Vol] 9 mmol/L Normal 5-16 [facility] Comment on above: Order Comment: Speci men Type: BLOOD SPECIMEN Ordering Facility: [facility] Address: [address] [place] [address] Performed By: #### 5 7021-8 #### [facility] CLIA [id number] [address] [place] [address] [place] AST [Catalytic activity/Vol] 16 U/L Normal 8-34 [facility] Comment on above: Order Comment: Speci men Type: BLOOD SPECIMEN Ordering Facility: [facility] Address: [address] [place] [address] Result Comment: Resu lts may be falsely depressed after the administration of Sulfasalazine and/or Sulfapyridine. Performed By: #### 5 7021-8 #### [facility] CLIA [id number] [address] [place] [address] [place] Bilirubin [Mass/Vol] 1.3 mg/dL High 0.2-1.0 [facility] Comment on above: Order Comment: Speci men Type: BLOOD SPECIMEN Ordering Facility: [facility] Address: [address] [place] [address] Performed By: #### 5 7021-8 #### [facility] CLIA [id number] [address] [place] [address] [place] Calcium [Mass/Vol] 9.6 mg/dL Normal 8.5-10.5 [facility] Comment on above: Order Comment: Speci men Type: BLOOD SPECIMEN Ordering Facility: [facility] Address: [address] [place] [address] Performed By: #### 5 7021-8 #### [facility] CLIA [id number] [address] [place] [address] [place] Chloride [Moles/Vol] 93 mmol/L Low 98-107 [facility] Comment on above: Order Comment: Speci men Type: BLOOD SPECIMEN Ordering Facility: [facility] Address: [address] [place] [address] Performed By: #### 5 7021-8 #### [facility] CLIA [id number] [address] [place] [address] [place] CO2 [Moles/Vol] 33 mmol/L High 21-32 [facility] Comment on above: Order Comment: Speci men Type: BLOOD SPECIMEN Ordering Facility: [facility] Address: [address] [place] [address] Performed By: #### 5 7021-8 #### [facility] CLIA [id number] [address] [place], [place] [address] [place] Creatinine [Mass/Vol] 1.00 mg/dL High 0.51-0.95 [facility] Comment on above: Order Comment: Dora men Type: BLOOD SPECIMEN Ordering Facility: [facility] Address: [address] [place] [address] Result Comment: Marissa ents receiving either N-Acetylcysteine (NAC) or Metamizole prior to venipuncture, may have falsely depressed results. Performed By: #### 5 7021-8 #### [facility] CLIA [id number] [address] [place] [address] [place] Creatinine and Glomerular filtration rate.predicted panel (S/P/Bld) 73 mL/min/1.73m??? Normal >=60 [facility] Comment on above: Order Comment: Dora finch Type: BLOOD SPECIMEN Ordering Facility: [facility] Address: [address] [place] [address] Result Comment: Zeny mated Glomerular Filtration Rate [...] GFR. Performed By: #### 5 7021-8 #### [facility] CLIA [id number] [address] [place] [address] [place] Glucose [Mass/Vol] 89 mg/dL Normal 70-100 [facility] Comment on above: Order Comment: Dora stef Type: BLOOD SPECIMEN Ordering Facility: [facility] Address: [address] [place] [address] Result Comment: The [place] Diabetes Association (ADA) provides guidance for cutoff [...] Standards of Medical Care in Diabetes 2016, [place] [employer]. Diabetes Care. 2016.39(Suppl 1). Results may be falsely elevated after the administration of Sulfapyridine. Results may be falsely depressed after the administration of Sulfasalazine. Performed By: #### 5 7021-8 #### [facility] CLIA [id number] [address] [place] [address] [place] Potassium [Moles/Vol] 3.4 mmol/L Low 3.5-5.1 [facility] Comment on above: Order Comment: Dora finch Type: BLOOD SPECIMEN Ordering Facility: [facility] Address: [address] [place] [address] Performed By: #### 5 7021-8 #### [facility] CLIA [id number] [address] [place] [address] [place] Protein [Mass/Vol] 7.7 g/dL Normal 6.0-8.5 [facility] Comment on above: Order Comment: Florii stef Type: BLOOD SPECIMEN Ordering Facility: [facility] Address: [address] [place] [address] Performed By: #### 5 7021-8 #### [facility] CLIA [id number] [address] [place] [address] [place] Sodium [Moles/Vol] 135 mmol/L Low 136-145 [facility] Comment on above: Order Comment: Dora finch Type: BLOOD SPECIMEN Ordering Facility: [facility] Address: [address] [place] [address] Performed By: #### 5 7021-8 #### [facility] CLIA [id number] [address] [place] [id number] [place] Urea nitrogen [Mass/Vol] 11 mg/dL Normal 7- [facility] Comment on above: Order Comment: Speci men Type: BLOOD SPECIMEN Ordering Facility: [facility] Address: [address] [place] [address] Performed By: #### 5 7021-8 #### [facility] CLIA [id number] [address] [place] [address] [place], [place] [address] [place] Magnesium SerPl-mCncon 10-25 Magnesium [Mass/Vol] 1.7 mg/dL Normal 1.6-2.6 [facility] Comment on above: Order Comment: Speci men Type: BLOOD SPECIMEN Ordering Facility: [facility] Address: [address] [place] [address] Performed By: #### 5 7021-8 #### [facility] CLIA [id number] [address] [place] [address] [place] CBC panel Auto (Bld)on 10-24 Erythrocyte distribution width (RBC) [Ratio] 14.8 % Normal 11.5-15.0 [facility] Comment on above: Order Comment: Speci men Type: BLOOD SPECIMENOrdering Facility: [facility] Address: [address] [place] [address] Performed By: #### 5 8410-2 ####[facility]IA [id number] [place] [id number] [place] Hematocrit (Bld) [Volume fraction] 32.6 % Low 36.0-46.0 [facility] Comment on above: Order Comment: Speci men Type: BLOOD SPECIMENOrdering Facility: [facility] Address: [address] [place] [address] Performed By: #### 5 8410-2 ####[facility]ORY[facility]IA [id number] [place] [id number] [place] Hemoglobin (Bld) [Mass/Vol] 10.3 g/dL Low 11.5-15.5 [facility] Comment on above: Order Comment: Speci men Type: BLOOD SPECIMENOrdering Facility: [facility] Address: [address] [place] [address] Performed By: #### 5 8410-2 ####[facility]ORYCLIA [id number] [address] MCH (RBC) [Entitic mass] 24.1 pg Low 26.0-34.0 [facility] Comment on above: Order Comment: Speci men Type: BLOOD SPECIMENOrdering Facility: [facility] Address: [address] [place] [address] Performed By: #### 5 8410-2 ####[facility]ORYCLIA [id number] [address] MCHC (RBC) [Mass/Vol] 31.6 g/dL Normal 30.5-36.0 [facility] Comment on above: Order Comment: Speci men Type: BLOOD SPECIMENOrdering Facility: [facility] Address: [address] [place] [address] Performed By: #### 5 8410-2 ####[facility]ORY[facility]IA [id number] [address] MCV (RBC) [Entitic vol] 76.2 fL Low 80.0-100.0 [facility] Comment on above: Order Comment: Speci men Type: BLOOD SPECIMENOrdering Facility: [facility] Address: [address] [place] [address] Performed By: #### 5 8410-2 ####[facility]ORYCLIA [id number] [address] Nucleated RBC (Bld) [#/Vol] 10*3/uL Normal <0.01 [facility] Comment on above: Order Comment: Speci men Type: BLOOD SPECIMENOrdering Facility: [facility] Address: [address] [place] [address] Performed By: #### 5 8410-2 ####[facility]ORYCLIA [id number] [place] [address] [place] Platelet mean volume (Bld) [Entitic vol] 8.7 fL Low 9.0-12.7 [facility] Comment on above: Order Comment: Speci men Type: BLOOD SPECIMENOrdering Facility: [facility] Address: [address] [place] [address] Performed By: #### 5 8410-2 ####[facility]ORYCLIA [id number] [place] [id number] [place] Platelets (Bld) [#/Vol] 408 10*3/uL High 150-400 [facility] Comment on above: Order Comment: Speci men Type: BLOOD SPECIMENOrdering Facility: [facility] Address: [address] [place] [address] Performed By: #### 5 8410-2 ####[facility]ORYCLIA [id number] [place] [id number] [place] RBC (Bld) [#/Vol] 4.28 10*6/uL Normal 3.90-5.20 [facility] Comment on above: Order Comment: Speci men Type: BLOOD SPECIMENOrdering Facility: [facility] Address: [address] [place] [address] Performed By: #### 5 8410-2 ####[facility]ORYCLIA [id number] [place] [id number] [place] WBC (Bld) [#/Vol] 6.06 10*3/uL Normal 3.70-11.00 [facility] Comment on above: Order Comment: Speci men Type: BLOOD SPECIMENOrdering Facility: [facility] Address: [address] [place] [address] Performed By: #### 5 8410-2 ####[facility]ORYCLIA [id number] [place] [id number] [facility] [place] Comprehensive metabolic 2000 panelon 10-24-2024 Albumin [Mass/Vol] 3.1 g/dL Low 3.2-5.0 [facility] Comment on above: Order Comment: Speci men Type: BLOOD SPECIMENOrdering Facility: [facility] Address: [address] [place] [address] Performed By: #### 1 9123-9, 37429-6 ####[facility]ORYCLIA [id number] [place] [address] [place] ALP [Catalytic activity/Vol] 131 U/L High 45-117 [facility] Comment on above: Order Comment: Speci men Type: BLOOD SPECIMENOrdering Facility: [facility] Address: [address] [place] [address] Performed By: #### 1 9123-9, 48468-7 ####[facility]ORYCLIA [id number] [place] [address] [place] ALT [Catalytic activity/Vol] 15 U/L Normal 13-61 [facility] Comment on above: Order Comment: Speci men Type: BLOOD SPECIMENOrdering Facility: [facility] Address: [address] [place] [address] Result Comment: Resu lts may be falsely depressed after the administration of Sulfasalazine and/or Sulfapyridine. Performed By: #### 1 9123-9, 76392-1 ####[facility]ORYCLIA [id number] [place] [address] [place] Anion gap [Moles/Vol] 10 mmol/L Normal 5-16 [facility] Comment on above: Order Comment: Speci men Type: BLOOD SPECIMENOrdering Facility: [facility] Address: [address] [place] [address] Performed By: #### 1 9123-9, 57061-6 ####[facility]ORYCLIA [id number] [place] [address] [place] AST [Catalytic activity/Vol] 12 U/L Normal 8-34 [facility] Comment on above: Order Comment: Speci men Type: BLOOD SPECIMENOrdering Facility: [facility] Address: [address] [place] [address] Result Comment: Resu lts may be falsely depressed after the administration of Sulfasalazine and/or Sulfapyridine. Performed By: #### 1 23-9, ####[facility]ORYCLIA [id number] [place] [id number] [place] Bilirubin [Mass/Vol] 1.2 mg/dL High 0.2-1.0 [facility] Comment on above: Order Comment: Speci men Type: BLOOD SPECIMENOrdering Facility: [facility] Address: [address] [place] [address] Performed By: #### 1 239, ####[facility]ORYCLIA [id number] [place] [address] [place] Calcium [Mass/Vol] 9.6 mg/dL Normal 8.5-10.5 [facility] Comment on above: Order Comment: Speci men Type: BLOOD SPECIMENOrdering Facility: [facility] Address: [address] [place] [address] Performed By: #### 1 9123-02, ####[facility]ORYCLIA [id number] [place] [address] [place] Chloride [Moles/Vol] 92 mmol/L Low 98-107 [facility] Comment on above: Order Comment: Speci men Type: BLOOD SPECIMENOrdering Facility: [facility] Address: [address] [place] [address] Performed By: #### 1 239, ####[facility]ORYCLIA [id number] [place] [address] [place] CO2 [Moles/Vol] 31 mmol/L Normal 21-32 [facility] Comment on above: Order Comment: Speci men Type: BLOOD SPECIMENOrdering Facility: [facility] Address: [address] [place] [address] Performed By: #### 1 23, ####[facility]ORYCLIA [id number] [place] [id number] [place] Creatinine [Mass/Vol] 1.04 mg/dL High 0.51-0.95 [facility] Comment on above: Order Comment: Dora finch Type: BLOOD SPECIMENOrdering Facility: [facility] Address: [address] [place] [address] Result Comment: Marissa ents receiving either N-Acetylcysteine (NAC) or Metamizole prior to venipuncture, may have falsely depressed results. Performed By: #### 1 9123-9, 89893-6 ####[facility]ORYCLIA [id number] [place] [id number] [place] Creatinine and Glomerular filtration rate.predicted panel (S/P/Bld) 69 mL/min/1.73m??? Normal >=60 [facility] Comment on above: Order Comment: Dora finch Type: BLOOD SPECIMENOrdering Facility: [facility] Address: [address] [place] [address] Result Comment: Zeny mated Glomerular Filtration Rate [...] actual GFR. Performed By: #### 1 9123-9, 23635-5 ####[facility]ORYCLIA [id number] [place] [address] [place] Glucose [Mass/Vol] 101 mg/dL High 70-100 [facility] Comment on above: Order Comment: Dora finch Type: BLOOD SPECIMENOrdering Facility: [facility] Address: [address] [place] [address] Result Comment: The [place] Diabetes Association (ADA) provides guidance for cutoff [...] Standards of Medical Care in Diabetes 2016, [place] [employer]. Diabetes Care. 2016.39(Suppl 1). Results may be falsely elevated after the administration of Sulfapyridine. Results may be falsely depressed after the administration of Sulfasalazine. Performed By: #### 1 9123-9, 52456-2 ####[facility]ORYCLIA [id number] [place] [address] [place] Potassium [Moles/Vol] 3.4 mmol/L Low 3.5-5.1 [facility] Comment on above: Order Comment: Speci men Type: BLOOD SPECIMENOrdering Facility: [facility] Address: [address] [place] [address] Performed By: #### 1 9123-9, 73320-0 ####[facility]ORYCLIA [id number] [place] [id number] [place] Protein [Mass/Vol] 7.5 g/dL Normal 6.0-8.5 [facility] Comment on above: Order Comment: Speci men Type: BLOOD SPECIMENOrdering Facility: [facility] Address: [address] [place] [address] Performed By: #### 1 239, 64821-3 ####[facility]ORYCLIA [id number] [place] [id number] [place] Sodium [Moles/Vol] 133 mmol/L Low 136-145 [facility] Comment on above: Order Comment: Speci men Type: BLOOD SPECIMENOrdering Facility: [facility] Address: [address] [place] [address] Performed By: #### 1 9123-9, 20241-4 ####[facility]ORYCLIA [id number] [place] [address] [place] Urea nitrogen [Mass/Vol] 10 mg/dL Normal 7-26 [facility] Comment on above: Order Comment: Speci men Type: BLOOD SPECIMENOrdering Facility: [facility] Address: [address] [place] [address] Performed By: #### 1 9123-9, 64342-1 ####[facility]ORYCLIA [id number] [place] [address] [place] Magnesium SerPl-mCncon 10-24 Magnesium [Mass/Vol] 1.8 mg/dL Normal 1.6-2.6 [facility] Comment on above: Order Comment: Speci men Type: BLOOD SPECIMENOrdering Facility: [facility] Address: [place] [address] Performed By: #### 1 9123-9, 20644-8 ####[facility]ORYCLIA [id number] [place] [address] [place] NUTRITIONon 10-24-2024 NUTRITION HNO ID: [id number] Author: LELIA MORALES RD Service: ? Author Type: Registered Dietitian Type: Nutrition Filed: 10/24/2024 14:01 Note Text: NUTRITION THERAPY PROGRESS NOTE SERVICE DATE: 10/24/2024 SERVICE TIME: Start Time: 1347 Nutrition Assessment: Recommended Malnutrition Diagnosis: Mild Protein-Calorie Malnutrition (10/20/24 1451 : Mounika Sarabia, SANJAY) Care Plan: Continue current diet Supplements: Powerade [...] needs: 1849 - 2049 Calorie Calculation Method: Yael Calabrese (with activity factor) Estimated protein needs (grams): 120 - 130 Grams protein determined by: (>/= 2.0 g/kg IBW) Diet Orders (From admission, onward) Start Ordered 10/20/24 1530 DIET SUPPLEMENTS START NOW Question Answer Comment Supplement 1 POWERADE ORAL REHYDRATION SOLUTION MIXED HODGE Supplement 1 Frequency BREAKFAST Supplement 1 Frequency LUNCH Supplement 1 Frequency DINNER 10/20/24 1519 10/19/24 231 DIET REGULAR START NOW Question: Tray Precautions [...] October 24, 2024 TIME: 1:56 PM Normal [facility] CBC panel Auto (Bld)on 10-23 Erythrocyte distribution width (RBC) [Ratio] 14.8 % Normal 11.5-15.0 [facility] Comment on above: Order Comment: Speci men Type: BLOOD SPECIMENOrdering Facility: [facility] Address: [address] [place] [address] Performed By: #### 5 8410-2 ####[facility]ORYCLIA [id number] [place] [address] [place] Hematocrit (Bld) [Volume fraction] 30.5 % Low 36.0-46.0 [facility] Comment on above: Order Comment: Dora men Type: BLOOD SPECIMENOrdering Facility: [facility] Address: [address] [place] [address] Performed By: #### 5 8410-2 ####[facility]ORYCLIA [id number] [place] [address] [place] Hemoglobin (Bld) [Mass/Vol] 9.4 g/dL Low 11.5-15.5 [facility] Comment on above: Order Comment: Speci men Type: BLOOD SPECIMENOrdering Facility: [facility] Address: [address] [place] [address] Performed By: #### 5 8410-2 ####[facility]ORYCLIA [id number] [address] [place] MCH (RBC) [Entitic mass] 24.0 pg Low 26.0-34.0 [facility] Comment on above: Order Comment: Speci men Type: BLOOD SPECIMENOrdering Facility: [facility] Address: [address] [place] [address] Performed By: #### 5 8410-2 ####[facility]ORYCLIA [id number] [address] [place] MCHC (RBC) [Mass/Vol] 30.8 g/dL Normal 30.5-36.0 [facility] Comment on above: Order Comment: Speci men Type: BLOOD SPECIMENOrdering Facility: [facility] Address: [address] [place] [address] Performed By: #### 5 8410-2 ####[facility]ORYCLIA [id number] [address] [place] MCV (RBC) [Entitic vol] 77.8 fL Low 80.0-100.0 [facility] Comment on above: Order Comment: Speci men Type: BLOOD SPECIMENOrdering Facility: [facility] Address: [address] [place] [address] Performed By: #### 5 8410-2 ####[facility]ORYCLIA [id number] [address] [place] Nucleated RBC (Bld) [#/Vol] 10*3/uL Normal <0.01 [facility] Comment on above: Order Comment: Speci men Type: BLOOD SPECIMENOrdering Facility: [facility] Address: [address] [place] [address] Performed By: #### 5 8410-2 ####[facility]ORYCLIA [id number] [place] [id number] [place] Platelet mean volume (Bld) [Entitic vol] 8.6 fL Low 9.0-12.7 [facility] Comment on above: Order Comment: Speci men Type: BLOOD SPECIMENOrdering Facility: [facility] Address: [address] [place] [address] Performed By: #### 5 8410-2 ####[facility]ORYCLIA [id number] [place] [id number] [place] Platelets (Bld) [#/Vol] 413 10*3/uL High 150-400 [facility] Comment on above: Order Comment: Speci men Type: BLOOD SPECIMENOrdering Facility: [facility] Address: [address] [place] [address] Performed By: #### 5 8410-2 ####[facility]ORYCLIA [id number] [place] [address] [place] RBC (Bld) [#/Vol] 3.92 10*6/uL Normal 3.90-5.20 [facility] Comment on above: Order Comment: Speci men Type: BLOOD SPECIMENOrdering Facility: [facility] Address: [address] [place] [address] Performed By: #### 5 8410-2 ####[facility]ORYCLIA [id number] [place] [id number] [place] WBC (Bld) [#/Vol] 5.26 10*3/uL Normal 3.70-11.00 [facility] Comment on above: Order Comment: Speci men Type: BLOOD SPECIMENOrdering Facility: [facility] Address: [address] [place] [address] Performed By: #### 5 8410-2 ####[facility]ORYCLIA [id number] [place] CONSULTon 10-23-2024 CONSULT HNO ID: [id number] Author: YOHANA GARCIA III, DPM Service: Podiatry [...] and polysubstance abuse who originally presented to [facility] with severe abdominal pain and found to [...] feet. No x-rays have been done today. [facility] consult regarding management of bilateral foot gangrene. Originally presented to hospital with persistent stools. She had recent vascular follow-up at the end of August. PAST MEDICAL HISTORY Diagnosis Date Attempted suicide (HCC) polysubstance Bipolar depression (HCC) [facility] Gestational diabetes mellitus in ([facility]) Impaired fasting blood sugar 06/2015 a1c 5.7% [...] Urine Negative 08/30/2024 Nitrites Negative 08/30/2024 Specific Balfour, Ur 1.016 08/30/2024 Protein, Urine 1+ 08/30/2024 Leukest Negative 08/30/2024 WBC, Urine 0-5 /HPF 08/30/2024 Bacteria Negative 08/30/2024 SED RATE/CRP: Sed Rate, Westergren 2 02/05/2022 CRP 10.4 09/03/2024 CRP 20.2 08/31/2024 CRP 18.1 (more content not included)... [facility] CONSULT PROGon 10-23-2024 CONSULT PROG HNO ID: [id number] Author: ALOK DONIS MD Service: Gastroenterology Author [...] if needed Rest as outlined below by CHANGE MANAGEMENT SPECIALIST Other additions or changes: None Signature: Alok [...] tests reviewed for today's visit: Recent Labs 10/23/24 0537 10/22/24 0523 10/21/24 0948 WBC 5.26 5.87 [...] primary team -Outpatient GI follow-up, referral line [phone] -Please call with questions, nothing further to add from a GI standpoint at this time GI will sign off at this time. Please don't hesitate to call us back. Please contact on-call GI staff physician with any questions or concerns. SIGNATURE: Rakesh Davis APRN.TOW MATE DATE: October 23, 2024 TIME: 11:56 AM (Some elements copied from my note, dated 10/22, which have been reviewed and updated where appropriate. All reflect current medical decision making from today, 10/23.) Normal [facility] Comprehensive metabolic 2000 panelon 10-23-2024 Albumin [Mass/Vol] 2.8 g/dL Low 3.2-5.0 [facility] Comment on above: Order Comment: Speci men Type: BLOOD SPECIMENOrdering Facility: [facility] Address: [address] [place] [address] Performed By: #### 1 9123-9, 98276-6 ####[facility]ORYCLIA [id number] [place] [address] [place] ALP [Catalytic activity/Vol] 118 U/L High 45-117 [facility] Comment on above: Order Comment: Speci men Type: BLOOD SPECIMENOrdering Facility: [facility] Address: [address] [place] [address] Performed By: #### 1 9123-9, 92732-7 ####[facility]ORYCLIA [id number] [place] [address] [place] ALT [Catalytic activity/Vol] 15 U/L Normal 13-61 [facility] Comment on above: Order Comment: Speci men Type: BLOOD SPECIMENOrdering Facility: [facility] Address: [address] [place] [address] Result Comment: Resu lts may be falsely depressed after the administration of Sulfasalazine and/or Sulfapyridine. Performed By: #### 1 9123-9, 37590-6 ####[facility]ORYCLIA [id number] [address] Anion gap [Moles/Vol] 10 mmol/L Normal 5-16 [facility] Comment on above: Order Comment: Speci men Type: BLOOD SPECIMENOrdering Facility: [facility] Address: [address] [place] [address] Performed By: #### 1 9123-9, 32923-9 ####[facility]ORYCLIA [id number] [address] [place] AST [Catalytic activity/Vol] 14 U/L Normal 8-34 [facility] Comment on above: Order Comment: Speci men Type: BLOOD SPECIMENOrdering Facility: [facility] Address: [address] [place] [address] Result Comment: Resu lts may be falsely depressed after the administration of Sulfasalazine and/or Sulfapyridine. Performed By: #### 1 9123-9, 31130-8 ####[facility]ATORYCLIA [id number] [place] [address] [place] Bilirubin [Mass/Vol] 0.9 mg/dL Normal 0.2-1.0 [facility] Comment on above: Order Comment: Speci men Type: BLOOD SPECIMENOrdering Facility: [facility] Address: [address] [place] [address] Performed By: #### 1 9123-9, 64736-9 ####[facility]ORYCLIA [id number] [place] [address] [place] Calcium [Mass/Vol] 9.1 mg/dL Normal 8.5-10.5 [facility] Comment on above: Order Comment: Speci men Type: BLOOD SPECIMENOrdering Facility: [facility] Address: [address] [place] [address] Performed By: #### 1 9123-9, 78720-6 ####[facility]ORYCLIA [id number] [place] [address] [place] Chloride [Moles/Vol] 98 mmol/L Normal 98-107 [facility] Comment on above: Order Comment: Speci men Type: BLOOD SPECIMENOrdering Facility: [facility] Address: [address] [place] [address] Performed By: #### 1 9123-9, 80978-7 ####[facility]ORYCLIA [id number] [place] [address] [place] CO2 [Moles/Vol] 29 mmol/L Normal 21-32 [facility] Comment on above: Order Comment: Speci men Type: BLOOD SPECIMENOrdering Facility: [facility] Address: [address] [place] [address] Performed By: #### 1 9123-9, 08170-3 ####[facility]ATORYCLIA [id number] [place] [address] [place] Creatinine [Mass/Vol] 0.90 mg/dL Normal 0.51-0.95 [facility] Comment on above: Order Comment: Speci men Type: BLOOD SPECIMENOrdering Facility: [facility] Address: [address] [place] [address] Result Comment: Marissa ents receiving either N-Acetylcysteine (NAC) or Metamizole prior to venipuncture, may have falsely depressed results. Performed By: #### 1 9123-9, 11406-1 ####[facility]ATORYCLIA [id number] [place] [address] [place] Creatinine and Glomerular filtration rate.predicted panel (S/P/Bld) 83 mL/min/1.73m??? Normal >=60 [facility] Comment on above: Order Comment: Specsammie men Type: BLOOD SPECIMENOrdering Facility: [facility] Address: [address] [place] [address] Result Comment: Zeny mated Glomerular Filtration Rate [...] actual GFR. Performed By: #### 1 9123-9, 17550-0 ####[facility]ATORYCLIA [id number] [place] [address] [place] Glucose [Mass/Vol] 98 mg/dL Normal 70-100 [facility] Comment on above: Order Comment: Dora finch Type: BLOOD SPECIMENOrdering Facility: [facility] Address: [address] [place] [address] Result Comment: The [place] Diabetes [employer] (ADA) provides guidance for cutoff [...] Standards of Medical Care in Diabetes 2016, [place] [employer]. Diabetes Care. 2016.39(Suppl 1). Results may be falsely elevated after the administration of Sulfapyridine. Results may be falsely depressed after the administration of Sulfasalazine. Performed By: #### 1 9123-9, 32757-1 ####[facility]ATORYCLIA [id number] [place] [id number] [place] Potassium [Moles/Vol] 3.4 mmol/L Low 3.5-5.1 [facility] Comment on above: Order Comment: Speci men Type: BLOOD SPECIMENOrdering Facility: [facility] [facility] Address: [address] [place] [address] Performed By: #### 1 9123-9, ####[facility]ORYCLIA [id number] [place] [address] [place] Protein [Mass/Vol] 6.9 g/dL Normal 6.0-8.5 [facility] Comment on above: Order Comment: Speci men Type: BLOOD SPECIMENOrdering Facility: [facility] Address: [address] [place] [address] Performed By: #### 1 9123-9, ####[facility]ORYCLIA [id number] [place] [address] [place] Sodium [Moles/Vol] 137 mmol/L Normal 136-145 [facility] Comment on above: Order Comment: Speci men Type: BLOOD SPECIMENOrdering Facility: [facility] Address: [address] [place] [address] Performed By: #### 1 9123-9, ####[facility]ORYCLIA [id number] [place] [id number] [place] Urea nitrogen [Mass/Vol] 7 mg/dL Normal 7-26 [facility] Comment on above: Order Comment: Speci men Type: BLOOD SPECIMENOrdering Facility: [facility] Address: [address] [place] [address] Performed By: #### 1 9123-9, 46827-1 ####[facility]ORYCLIA [id number] [place] [id number] [place] Magnesium SerPl-ncon 10-23 Magnesium [Mass/Vol] 1.9 mg/dL Normal 1.6-2.6 [facility] Comment on above: Order Comment: Speci men Type: BLOOD SPECIMENOrdering Facility: [facility] Address: [address] [place] [address] Performed By: #### 1 9123-9, 87147-8 ####[facility]ATORYCLIA [id number] [place] [address] [place] XR FOOT 3V [...] of osteomyelitis. Mild distal soft tissue swelling. [facility] Transcribe Date/Time: Oct 23 2024 4:00P Dictated by : HOMA EDMONDSON MD This examination was interpreted and the report reviewed and electronically signed by: HOMA EDMONDSON MD on Oct 23 2024 4:03PM EST [id number] Normal [facility] ALLIED HEALTHon 10-22-2024 ALLIED HEALTH HNO ID: [id number] Author: STEFANY CALVERT RN Service: Wound/Ostomy Author [...] Applied And Attached To Drainage Bag Barrier Management Supervisor Strips Applied To Edges Patient Educated On Need To Watch Drainage Tubing To Ensure Its Draining And Pouch Doesn't Get Too Full And Starts Leaking. Assessment Stoma Type: End-loop jejunostomy Size/Diameter: 38mm Location: LLQ Protrusion: Flush, Retracted, Etc. Mucosal condition and color: [place]ickox Red Moist Mucocutaneous junction: Intact Character of output: Liquid Yellow Brown Emptying frequency per day: per floor nursing Current pouching system: Coloplast 2pc High Output #62326 Pouch attached to drainage bag Coloplast #92683 Flat Wafer Augustine #8815 Small Barrier Ring Wear Time Goal: 3-4 days Coloplast 2pc Colostomy Pouch # 44848 Left In Room When Stool Thickens Too Much To Use High Output Bag. If additional ostomy supplies are needed, please call [facility] ([phone]) for above mentioned supplies. If supplies are unavailable in [facility] [employer], please secure chat [facility] Nurses or call extension [phone] to request more supplies. Normal [facility] CBC panel Auto (Bld)on 10-22 Erythrocyte distribution width (RBC) [Ratio] 14.6 % Normal 11.5-15.0 [facility] Comment on above: Order Comment: Speci men Type: BLOOD SPECIMEN Order[facility]: [facility] Address: [address] [place] [address] Performed By: #### 4 096-5 #### [facility] CLIA [id number] [address] [place] [address] [place] Hematocrit (Bld) [Volume fraction] 28.0 % Low 36.0-46.0 [facility] Comment on above: Order Comment: Speci men Type: BLOOD SPECIMEN Ordering Facility: [facility] Address: [address] [place] [address] Performed By: #### 4 091-5 #### [facility] CLIA [id number] [address] [place] [address] [place] Hemoglobin (Bld) [Mass/Vol] 8.8 g/dL Low 11.5-15.5 [facility] Comment on above: Order Comment: Speci men Type: BLOOD SPECIMEN [facility]ing [facility]: [facility] Address: [address] [place] [address] Performed By: #### 4 091-5 #### [facility] CLIA [id number] [address] [place] [address] [place] MCH (RBC) [Entitic mass] 24.6 pg Low 26.0-34.0 [facility] Comment on above: Order Comment: Speci men Type: BLOOD SPECIMEN Ordering [facility]: [facility] Address: [address] [place] [address] Performed By: #### 4 091-5 #### [facility] CLIA [id number] [address] [place] [address] [place] MCHC (RBC) [Mass/Vol] 31.4 g/dL Normal 30.5-36.0 [facility] Comment on above: Order Comment: Speci men Type: BLOOD SPECIMEN Ordering Facility: [facility] Address: [address] [place] [address] Performed By: #### 4 091-5 #### [facility] CLIA [id number] [address] [place] [address] [place] MCV (RBC) [Entitic vol] 78.4 fL Low 80.0-100.0 [facility] Comment on above: Order Comment: Speci men Type: BLOOD SPECIMEN Ordering Facility: [facility] Address: [address] [place] [address] Performed By: #### 4 091-5 #### [facility] CLIA [id number] [address] [place] [address] [place] Nucleated RBC (Bld) [#/Vol] 10*3/uL Normal <0.01 [facility] Comment on above: Order Comment: Speci men Type: BLOOD SPECIMEN Ordering Facility: [facility] Address: [address] [place] [address] Performed By: #### 4 091-5 #### [facility] CLIA [id number] [address] [place] [address] [place] Platelet mean volume (Bld) [Entitic vol] 8.7 fL Low 9.0-12.7 [facility] Comment on above: Order Comment: Speci men Type: BLOOD SPECIMEN Ordering Facility: [facility] Address: [address] [place] [address] Performed By: #### 4 091-5 #### [facility] CLIA [id number] [address] [place] [address] [place] Platelets (Bld) [#/Vol] 396 10*3/uL Normal 150-400 [facility] Comment on above: Order Comment: Speci men Type: BLOOD SPECIMEN Ordering Facility: [facility] Address: [address] [place] [address] Performed By: #### 4 091-5 #### [facility] CLIA [id number] [address] [place] [address] [place] RBC (Bld) [#/Vol] 3.57 10*6/uL Low 3.90-5.20 [facility] Comment on above: Order Comment: Speci men Type: BLOOD SPECIMEN Ordering Facility: [facility] Address: [address] [place] [address] Performed By: #### 4 091-5 #### [facility] CLIA [id number] [address] [place], [place] [address] [facility] WBC (Bld) [#/Vol] 5.87 10*3/uL Normal 3.70-11.00 [facility] Comment on above: Order Comment: Dora finch Type: BLOOD SPECIMEN Ordering Facility: [facility] Address: [address] [place] [address] Performed By: #### 4 091-5 #### [facility] CLIA [id number] [address] [place], [place] [address] [facility] CONSULT PROGon 10-22-2024 CONSULT PROG HNO ID: [id number] Author: TUNG JENNINGS MD Service: Gastroenterology Author [...] reviewed for today's visit: Recent Labs 10/22/24 0523 10/21/24 0948 10/20/24 0633 WBC 5.87 5.24 8.42 [...] team -GI will follow SIGNATURE: Rakesh Davis APRN.TOW MATE DATE: October 22, 2024 TIME: 12:32 PM (Some elements copied from my colleague's note, dated 10/21, which have been reviewed and updated where appropriate. All reflect current medical decision making from today, 10/22.) Normal [facility] Comprehensive metabolic 2000 panelon 10-22-2024 Albumin [Mass/Vol] 2.6 g/dL Low 3.2-5.0 [facility] Comment on above: Order Comment: Speci men Type: BLOOD SPECIMEN Ordering Facility: [facility] Address: [address] [place] [address] Performed By: #### 4 091-5 #### [facility] CLIA [id number] [address] [place] [address] [place] ALP [Catalytic activity/Vol] 110 U/L Normal 45-117 [facility] Comment on above: Order Comment: Speci men Type: BLOOD SPECIMEN Ordering Facility: [facility] Address: [address] [place] [address] Performed By: #### 4 091-5 #### [facility] CLIA [id number] [address] [place] [address] [place] ALT [Catalytic activity/Vol] 15 U/L Normal 13-61 [facility] Comment on above: Order Comment: Speci men Type: BLOOD SPECIMEN Ordering Facility: [facility] Address: [address] [place] [address] Result Comment: Resu lts may be falsely depressed after the administration of Sulfasalazine and/or Sulfapyridine. Performed By: #### 4 091-5 #### [facility] CLIA [id number] [address] [place] [address] [place] Anion gap [Moles/Vol] 8 mmol/L Normal 5-16 [facility] Comment on above: Order Comment: Florii stef Type: BLOOD SPECIMEN Ordering Facility: [facility] Address: [address] [place] [address] Performed By: #### 4 091-5 #### [facility] CLIA [id number] [address] [place] [address] [place] AST [Catalytic activity/Vol] 14 U/L Normal 8-34 [facility] Comment on above: Order Comment: Florii stef Type: BLOOD SPECIMEN Ordering Facility: [facility] Address: [address] [place] [address] Result Comment: Resu lts may be falsely depressed after the administration of Sulfasalazine and/or Sulfapyridine. Performed By: #### 4 091-5 #### [facility] CLIA [id number] [address] [place] [address] [place] Bilirubin [Mass/Vol] 0.9 mg/dL Normal 0.2-1.0 [facility] Comment on above: Order Comment: Dora finch Type: BLOOD SPECIMEN Ordering Facility: [facility] Address: [address] [place] [address] Performed By: #### 4 091-5 #### [facility] CLIA [id number] [address] [place] [address] [place] Calcium [Mass/Vol] 8.9 mg/dL Normal 8.5-10.5 [facility] Comment on above: Order Comment: Floiri stef Type: BLOOD SPECIMEN Ordering Facility: [facility] Address: [address] [place] [address] Performed By: #### 4 091-5 #### [facility] CLIA [id number] [address] [place] [address] [place] Chloride [Moles/Vol] 98 mmol/L Normal 98-107 [facility] Comment on above: Order Comment: Dora finch Type: BLOOD SPECIMEN Ordering Facility: [facility] Address: [address] [place] [address] Performed By: #### 4 091-5 #### [facility] CLIA [id number] [address] [place] [address] [place] CO2 [Moles/Vol] 30 mmol/L Normal 21-32 [facility] Comment on above: Order Comment: Speci men Type: BLOOD SPECIMEN Ordering Facility: [facility] Address: [address] [place] [address] Performed By: #### 4 091-5 #### [facility] CLIA [id number] [address] [place] [address] [place] Creatinine [Mass/Vol] 0.95 mg/dL Normal 0.51-0.95 [facility] Comment on above: Order Comment: Florii men Type: BLOOD SPECIMEN Ordering Facility: [facility] Address: [address] [place] [address] Result Comment: Marissa ents receiving either N-Acetylcysteine (NAC) or Metamizole prior to venipuncture, may have falsely depressed results. Performed By: #### 4 091-5 #### [facility] CLIA [id number] [address] [place] [address] [place] Creatinine and Glomerular filtration rate.predicted panel (S/P/Bld) 77 mL/min/1.73m??? Normal >=60 [facility] Comment on above: Order Comment: Florii stef Type: BLOOD SPECIMEN Ordering Facility: [facility] Address: [address] [place] [address] Result Comment: Zeny mated Glomerular Filtration Rate [...] GFR. Performed By: #### 4 091-5 #### [facility] CLIA [id number] [address] [place] [address] [place] Glucose [Mass/Vol] 83 mg/dL Normal 70-100 [facility] Comment on above: Order Comment: Dora finch Type: BLOOD SPECIMEN Ordering Facility: [facility] Address: [address] [place] [address] Result Comment: The [place] Diabetes Association (ADA) provides guidance for cutoff [...] Standards of Medical Care in Diabetes 2016, [place] [employer]. Diabetes Care. 2016.39(Suppl 1). Results may be falsely elevated after the administration of Sulfapyridine. Results may be falsely depressed after the administration of Sulfasalazine. Performed By: #### 4 091-5 #### [facility] CLIA [id number] [address] [place] [address] [place] Potassium [Moles/Vol] 3.2 mmol/L Low 3.5-5.1 [facility] Comment on above: Order Comment: Dora finch Type: BLOOD SPECIMEN Ordering Facility: [facility] Address: [address] [place] [address] Performed By: #### 4 091-5 #### [facility] CLIA [id number] [address] [place] [address] [place] Protein [Mass/Vol] 6.4 g/dL Normal 6.0-8.5 [facility] Comment on above: Order Comment: Dora finch Type: BLOOD SPECIMEN Ordering Facility: [facility] Address: [address] [place], [place] [address] Performed By: #### 4 091-5 #### [facility] CLIA [id number] [address] [place] [address] [place] Sodium [Moles/Vol] 136 mmol/L Normal 136-145 [facility] Comment on above: Order Comment: Speci men Type: BLOOD SPECIMEN Ordering Facility: [facility] Address: [address] [place] [address] Performed By: #### 4 091-5 #### [facility] CLIA [id number] [address] [place] [address] [place] Urea nitrogen [Mass/Vol] 9 mg/dL Normal 7-26 [facility] Comment on above: Order Comment: Speci men Type: BLOOD SPECIMEN Ordering Facility: [facility] Address: [address] [place] [address] Performed By: #### 4 091-5 #### [facility] CLIA [id number] [address] [place] [address] [place] Gastrointestinal pathogens p bowen LAUREANO+probe (Stl)on 10-22-2024 ADENOVIRUS F 40/41 DNA Not detected Normal Not Detected [facility] Comment on above: Order Comment: Speci men Type: STOOL SPECIMENOrdering Facility: [facility] Address: [address] [place] [address] Performed By: #### 7 9381-0 ####[facility]ORYCLIA [id number] [place] [address] [place] ASTROVIRUS RNA Not detected Normal Not Detected [facility] Comment on above: Order Comment: Speci men Type: STOOL SPECIMENOrdering Facility: [facility] Address: [address] [place] [address] Performed By: #### 7 9381-0 ####[facility]ORYCLIA [id number] [place] [address] [place] C. cayetanensis DNA LAUREANO+probe Ql (Unsp spec) Not detected Normal Not Detected [facility] Comment on above: Order Comment: Speci men Type: STOOL SPECIMENOrdering Facility: [facility] Address: [address] [place] [address] Performed By: #### 7 9381-0 ####[facility]ORYCLIA [id number] [place] [address] [place] [facility] Campylobacter sp DNA.diarrheagenic LAUREANO+probe Ql (Stl) Not detected Normal Not Detected [facility] Comment on above: Order Comment: Speci men Type: STOOL SPECIMENOrdering Facility: [facility] Address: [address] [place] [address] Performed By: #### 7 9381-0 ####[facility]ORYCLIA [id number] [address] [place] Cryptosporidium sp DNA LAUREANO+probe Ql (Unsp spec) Not detected Normal Not Detected [facility] Comment on above: Order Comment: Speci men Type: STOOL SPECIMENOrdering Facility: [facility] Address: [address] [place] [address] Performed By: #### 7 9381-0 ####[facility]ORYCLIA [id number] [address] [place] E. coli O157:H7 DNA LAUREANO+probe Ql (Unsp spec) Not applicable Normal Not detected [facility] Comment on above: Order Comment: Speci men Type: STOOL SPECIMENOrdering Facility: [facility] Address: [address] [place] [address] Performed By: #### 7 9381-0 ####[facility]ORYCLIA [id number] [address] [place] E. coli stx1+stx2 genes LAUREANO+probe Ql (Stl) Not detected Normal Not Detected [facility] Comment on above: Order Comment: Speci men Type: STOOL SPECIMENOrdering Facility: [facility] Address: [address] [place] [address] Performed By: #### 7 9381-0 ####[facility]ORYCLIA [id number] [address] [place] E. histolytica DNA LAUREANO+probe Ql (Unsp spec) Not detected Normal Not Detected [facility] Comment on above: Order Comment: Speci men Type: STOOL SPECIMENOrdering Facility: [facility] Address: [facility] [place] [address] Performed By: #### 7 9381-0 ####[facility]ORYCLIA [id number] [address] [place] ENTEROAGGREGATIVE E. COLI (EAEC) DNA Not detected Normal Not Detected [facility] Comment on above: Order Comment: Speci men Type: STOOL SPECIMENOrdering Facility: [facility] Address: [address] [place] [address] Performed By: #### 7 9381-0 ####[facility]ORYCLIA [id number] [address] [place] ENTEROPATHOGENIC E. COLI (EPEC) DNA Not detected Normal Not detected [facility] Comment on above: Order Comment: Speci men Type: STOOL SPECIMENOrdering Facility: [facility] Address: [address] [place] [address] Performed By: #### 7 9381-0 ####[facility]ORYCLIA [id number] [address] [place] ENTEROTOXIGENIC E. COLI (ETEC) DNA Not detected Normal Not Detected [facility] Comment on above: Order Comment: Speci men Type: STOOL SPECIMENOrdering Facility: [facility] Address: [address] [place] [address] Performed By: #### 7 9381-0 ####[facility]ORYCLIA [id number] [address] [place] G. lamblia DNA LAUREANO+probe Ql (Unsp spec) Not detected Normal Not Detected [facility] Comment on above: Order Comment: Speci men Type: STOOL SPECIMENOrdering Facility: [facility] Address: [address] [place] [address] Performed By: #### 7 9381-0 ####[facility]ORYCLIA [id number] [address] [place] NOROVIRUS GI/GII RNA Not detected Normal Not Detected [facility] Comment on above: Order Comment: Speci men Type: STOOL SPECIMENOrdering Facility: [facility] Address: [address] [place] [address] Performed By: #### 7 9381-0 ####[facility]ORYCLIA [id number] [address] STATES [place] PLESIOMONAS SHIGELLOIDES DNA Not detected Normal Not Detected [facility] Comment on above: Order Comment: Speci men Type: STOOL SPECIMENOrdering Facility: [facility] Address: [address] [place] [address] Performed By: #### 7 9381-0 ####[facility]ORYCLIA [id number] [place] [address] [place] ROTAVIRUS A RNA Not detected Normal Not Detected [facility] Comment on above: Order Comment: Speci men Type: STOOL SPECIMENOrdering Facility: [facility] Address: [address] [place] [address] Performed By: #### 7 9381-0 ####[facility]ORYCLIA [id number] [address] STATES [place] Salmonella sp DNA LAUREANO+probe Ql (Unsp spec) Not detected Normal Not Detected [facility] Comment on above: Order Comment: Speci men Type: STOOL SPECIMENOrdering Facility: [facility] Address: [address] [place] [address] Performed By: #### 7 9381-0 ####[facility]ORYCLIA [id number] [address] [place] SAPOVIRUS (GENOGROUPS I, II, IV, V) RNA Not detected Normal Not Detected [facility] Comment on above: Order Comment: Speci men Type: STOOL SPECIMENOrdering Facility: [facility] Address: [address] [place] [address] Performed By: #### 7 9381-0 ####[facility]ORYCLIA [id number] [place] [address] [place] Shigella species+EIEC invasion plasmid antigen H ipaH gene LAUREANO+probe Ql (Stl) Not detected Normal Not Detected [facility] Comment on above: Order Comment: Speci men Type: STOOL SPECIMENOrdering Facility: [facility] Address: [address] [place] [address] Performed By: #### 7 9381-0 ####[facility]ORYCLIA [id number] [place] [address] [place] V. cholerae DNA LAUREANO+probe Ql (Unsp spec) Not detected Normal Not Detected [facility] Comment on above: Order Comment: Speci men Type: STOOL SPECIMENOrdering Facility: [facility] Address: [address] [place] [address] Performed By: #### 7 9381-0 ####[facility]ORYCLIA [id number] [place] [address] [place] Vibrio sp DNA LAUREANO+probe Nom (Unsp spec) Not detected Normal Not Detected [facility] Comment on above: Order Comment: Speci men Type: STOOL SPECIMENOrdering Facility: [facility] Address: [address] [place] [address] Performed By: #### 7 9381-0 ####[facility]ORYCLIA [id number] [place] [address] [place] Yersinia sp DNA LAUREANO+probe Nom (Unsp spec) Not detected Normal Not Detected [facility] Comment on above: Order Comment: Speci men Type: STOOL SPECIMENOrdering Facility: [facility] Address: [address] [place] [address] Performed By: #### 7 9381-0 ####[facility]ORYCLIA [id number] [place] [address] [place] Magnesium SerPl-mCncon 10-22 Magnesium [Mass/Vol] 1.3 mg/dL Low 1.6-2.6 [facility] Comment on above: Order Comment: Speci men Type: BLOOD SPECIMEN Ordering Facility: [facility] Address: [address] [place] [address] Performed By: #### 4 091-5 #### [facility] CLIA [id number] [address] [place] [address] OF [place] C diff Tox gens Stl Ql LAUREANO+p robeon 10-21-2024 C. difficile toxin genes LAUREANO+probe Ql (Stl) Negative Normal Negative for C. difficile toxin by PCR [facility] Comment on above: Order Comment: Speci men Type: BLOOD SPECIMEN Ordering Facility: [facility] Address: [address] [place] [address] Performed By: #### [id number] #### [facility] CLIA [id number] [address] [place] [address] OF AARON CBC panel Auto (Bld)on 10-21 Erythrocyte distribution width (RBC) [Ratio] 14.6 % Normal 11.5-15.0 [facility] Comment on above: Order Comment: Speci men Type: BLOOD SPECIMEN [facility] [facility] Address: [address] [place] [address] Performed By: #### 4 091-5 #### [facility] CLIA [id number] [address] [place] [address] [place] Hematocrit (Bld) [Volume fraction] 31.0 % Low 36.0-46.0 [facility] Comment on above: Order Comment: Florii men Type: BLOOD SPECIMEN Ordering Facility: [facility] Address: [address] [place] [address] Performed By: #### 4 091-5 #### [facility] CLIA [id number] [address] [place] [address] [place] Hemoglobin (Bld) [Mass/Vol] 9.3 g/dL Low 11.5-15.5 [facility] Comment on above: Order Comment: Florii men Type: BLOOD SPECIMEN Ordering Facility: [facility] Address: [address] [place] [address] Performed By: #### 4 091-5 #### [facility] CLIA [id number] [address] [place] [address] [place] MCH (RBC) [Entitic mass] 24.1 pg Low 26.0-34.0 [facility] Comment on above: Order Comment: Speci men Type: BLOOD SPECIMEN Ordering Facility: [facility] Address: [address] [place] [address] Performed By: #### 4 091-5 #### [facility] CLIA [id number] [address] [place] [address] [place] MCHC (RBC) [Mass/Vol] 30.0 g/dL Low 30.5-36.0 [facility] Comment on above: Order Comment: Speci men Type: BLOOD SPECIMEN Ordering Facility: [facility] Address: [address] [place] [address] Performed By: #### 4 091-5 #### [facility] CLIA [id number] [address] [place] [address] [place] MCV (RBC) [Entitic vol] 80.3 fL Normal 80.0-100.0 [facility] Comment on above: Order Comment: Speci men Type: BLOOD SPECIMEN Ordering Facility: [facility] Address: [address] [place] [address] Performed By: #### 4 091-5 #### [facility] CLIA [id number] [address] [place] [address] [place] Nucleated RBC (Bld) [#/Vol] 10*3/uL Normal <0.01 [facility] Comment on above: Order Comment: Speci men Type: BLOOD SPECIMEN Ordering Facility: [facility] Address: [address] [place] [address] Performed By: #### 4 091-5 #### [facility] CLIA [id number] [address] [place] [address] [place] Platelet mean volume (Bld) [Entitic vol] 8.9 fL Low 9.0-12.7 [facility] Comment on above: Order Comment: Speci men Type: BLOOD SPECIMEN Ordering Facility: [facility] Address: [address] [place] [address] [place] [address] Performed By: #### 4 091-5 #### [facility] CLIA [id number] [address] [place] [address] [place] Platelets (Bld) [#/Vol] 441 10*3/uL High 150-400 [facility] Comment on above: Order Comment: Speci men Type: BLOOD SPECIMEN Ordering Facility: [facility] Address: [address] [place], [place] [address] Performed By: #### 4 091-5 #### [facility] CLIA [id number] [address] [place] [address] [place] RBC (Bld) [#/Vol] 3.86 10*6/uL Low 3.90-5.20 [facility] Comment on above: Order Comment: Speci men Type: BLOOD SPECIMEN Ordering Facility: [facility] Address: [address] [place] [address] Performed By: #### 4 091-5 #### [facility] CLIA [id number] [address] [place] [address] [place] WBC (Bld) [#/Vol] 5.24 10*3/uL Normal 3.70-11.00 [facility] Comment on above: Order Comment: Speci men Type: BLOOD SPECIMEN Ordering Facility: [facility] Address: [address] [place], [place] [address] Performed By: #### 4 091-5 #### [facility] CLIA [id number] [address] [place] [address] [place] Comprehensive metabolic 2000 panelon 10-21-2024 Albumin [Mass/Vol] 2.8 g/dL Low 3.2-5.0 [facility] Comment on above: Order Comment: Speci men Type: BLOOD SPECIMEN Ordering Facility: [facility] Address: [address] [place] [address] Performed By: #### 4 091-5 #### [facility] CLIA [id number] [address] [place] [address] [place] ALP [Catalytic activity/Vol] 117 U/L Normal 45-117 [facility] Comment on above: Order Comment: Speci stef Type: BLOOD SPECIMEN Ordering Facility: [facility] Address: [address] [place] [address] Performed By: #### 4 091-5 #### [facility] CLIA [id number] [address] [place] [address] [place] ALT [Catalytic activity/Vol] 19 U/L Normal 13-61 [facility] Comment on above: Order Comment: Speci men Type: BLOOD SPECIMEN Ordering Facility: [facility] Address: [address] [place] [address] Result Comment: Resu lts may be falsely depressed after the administration of Sulfasalazine and/or Sulfapyridine. Performed By: #### 4 091-5 #### [facility] CLIA [id number] [address] [place] [address] [place] Anion gap [Moles/Vol] 9 mmol/L Normal 5-16 [facility] Comment on above: Order Comment: Speci stef Type: BLOOD SPECIMEN Ordering Facility: [facility] Address: [address] [place] [address] Performed By: #### 4 091-5 #### [facility] CLIA [id number] [address] [place] [address] [place] [facility] AST [Catalytic activity/Vol] 13 U/L Normal 8-34 [facility] Comment on above: Order Comment: Speci men Type: BLOOD SPECIMEN Ordering Facility: [facility] Address: [address] [place] [address] Result Comment: Resu lts may be falsely depressed after the administration of Sulfasalazine and/or Sulfapyridine. Performed By: #### 4 091-5 #### [facility] CLIA [id number] [address] [place] [address] [place] Bilirubin [Mass/Vol] 0.9 mg/dL Normal 0.2-1.0 [facility] Comment on above: Order Comment: Speci men Type: BLOOD SPECIMEN Ordering Facility: [facility] Address: [address] [place] [id number] Performed By: #### 4 091-5 #### [facility] CLIA [id number] [address] [place] [address] [place] Calcium [Mass/Vol] 9.1 mg/dL Normal 8.5-10.5 [facility] Comment on above: Order Comment: Speci men Type: BLOOD SPECIMEN Ordering Facility: [facility] Address: [address] [place] [address] Performed By: #### 4 091-5 #### [facility] CLIA [id number] [address] [place] [address] [place] Chloride [Moles/Vol] 100 mmol/L Normal 98-107 [facility] Comment on above: Order Comment: Speci men Type: BLOOD SPECIMEN Ordering Facility: [facility] Address: [address] [place] [address] Performed By: #### 4 091-5 #### [facility] CLIA [id number] [address] [place] [address] [place] CO2 [Moles/Vol] 26 mmol/L Normal 21-32 [facility] Comment on above: Order Comment: Speci men Type: BLOOD SPECIMEN Ordering Facility: [facility] Address: [address] [place] [address] Performed By: #### 4 091-5 #### [facility] CLIA [id number] [address] [place] [address] [place] Creatinine [Mass/Vol] 0.98 mg/dL High 0.51-0.95 [facility] Comment on above: Order Comment: Speci men Type: BLOOD SPECIMEN Ordering Facility: [facility] Address: [address] [place] [address] Result Comment: Marissa ents receiving either N-Acetylcysteine (NAC) or Metamizole prior to venipuncture, may have falsely depressed results. Performed By: #### 4 091-5 #### [facility] CLIA [id number] [address] [place] [address] [place] Creatinine and Glomerular filtration rate.predicted panel (S/P/Bld) 75 mL/min/1.73m??? Normal >=60 [facility] Comment on above: Order Comment: Dora finch Type: BLOOD SPECIMEN Ordering Facility: [facility] Address: [address] [place] [address] Result Comment: Zeny mated Glomerular Filtration Rate [...] GFR. Performed By: #### 4 091-5 #### [facility] CLIA [id number] [address] [place] [address] [place] Glucose [Mass/Vol] 140 mg/dL High 70-100 [facility] Comment on above: Order Comment: Dora finch Type: BLOOD SPECIMEN Ordering Facility: [facility] Address: [address] [place] [address] Result Comment: The [place] Diabetes Association (ADA) provides guidance for cutoff [...] Standards of Medical Care in Diabetes 2016, [place] [employer]. Diabetes Care. 2016.39(Suppl 1). Results may be falsely elevated after the administration of Sulfapyridine. Results may be falsely depressed after the administration of Sulfasalazine. Performed By: #### 4 091-5 #### [facility] CLIA [id number] [address] [place], [place] [id number] [place] Potassium [Moles/Vol] 2.8 mmol/L Low 3.5-5.1 [facility] Comment on above: Order Comment: Speci men Type: BLOOD SPECIMEN Ordering Facility: [facility] Address: [address] [place] [address] Performed By: #### 4 091-5 #### [facility] CLIA [id number] [address] [place] [address] [place] Protein [Mass/Vol] 6.7 g/dL Normal 6.0-8.5 [facility] Comment on above: Order Comment: Speci men Type: BLOOD SPECIMEN Ordering Facility: [facility] Address: [address] [place] [address] Performed By: #### 4 091-5 #### [facility] CLIA [id number] [address] [place] [address] [place] Sodium [Moles/Vol] 135 mmol/L Low 136-145 [facility] Comment on above: Order Comment: Speci men Type: BLOOD SPECIMEN Ordering Facility: [facility] Address: [address] [place] [address] Performed By: #### 4 091-5 #### [facility] CLIA [id number] [address] [place] [address] [place] Urea nitrogen [Mass/Vol] 9 mg/dL Normal 7-26 [facility] Comment on above: Order Comment: Speci men Type: BLOOD SPECIMEN Ordering Facility: [facility] Address: [address] [place] [address] Performed By: #### 4 091-5 #### [facility] CLIA [id number] [address] [place] [address] [place] Magnesium SerPl-mCncon 10-21 Magnesium [Mass/Vol] 1.4 mg/dL Low 1.6-2.6 [facility] Comment on above: Order Comment: Speci men Type: BLOOD SPECIMEN Ordering Facility: [facility] Address: [address] [place] [address] Performed By: #### 4 091-5 #### [facility] CLIA [id number] [address] [place] [address] [place] Basic metabolic 2000 panelon 10-20-2024 Anion gap [Moles/Vol] 10 mmol/L Normal 5-16 [facility] Comment on above: Order Comment: Speci men Type: BLOOD SPECIMEN Ordering Facility: [facility] Address: [address] [place] [address] Performed By: #### 4 5066-8 #### [facility] CLIA [id number] [address] [place] [address] [place] Calcium [Mass/Vol] 9.2 mg/dL Normal 8.5-10.5 [facility] Comment on above: Order Comment: Speci men Type: BLOOD SPECIMEN Ordering Facility: [facility] Address: [address] [place] [address] Performed By: #### 4 5066-8 #### [facility] CLIA [id number] [address] [place] [address] [place] Chloride [Moles/Vol] 100 mmol/L Normal 98-107 [facility] Comment on above: Order Comment: Speci men Type: BLOOD SPECIMEN Ordering Facility: [facility] Address: [address] [place] [address] Performed By: #### 4 5066-8 #### [facility] CLIA [id number] [address] [place] [address] [place] CO2 [Moles/Vol] 21 mmol/L Normal 21-32 [facility] Comment on above: Order Comment: Speci men Type: BLOOD SPECIMEN Ordering Facility: [facility] Address: [address] [place] [address] Performed By: #### 4 5066-8 #### [facility] CLIA [id number] [address] [place] [address] [place] Creatinine [Mass/Vol] 1.17 mg/dL High 0.51-0.95 [facility] Comment on above: Order Comment: Speci men Type: BLOOD SPECIMEN Ordering Facility: [facility] Address: [address] [id number] Result Comment: Marissa ents receiving either N-Acetylcysteine (NAC) or Metamizole prior to venipuncture, may have falsely depressed results. Performed By: #### 4 5066-8 #### [facility] CLIA [id number] [address] [place] [address] [place] Creatinine and Glomerular filtration rate.predicted panel (S/P/Bld) 60 mL/min/1.73m??? Normal >=60 [facility] Comment on above: Order Comment: Dora finch Type: BLOOD SPECIMEN Ordering Facility: [facility] Address: [address] [place] [address] Result Comment: Zeny mated Glomerular Filtration Rate [...] GFR. Performed By: #### 4 5066-8 #### [facility] CLIA [id number] [address] [place] [address] [place] Glucose [Mass/Vol] 118 mg/dL High 70-100 [facility] Comment on above: Order Comment: Dora finch Type: BLOOD SPECIMEN Ordering Facility: [facility] Address: [address] [place] [address] Result Comment: The [place] Diabetes Association (ADA) provides guidance for cutoff [...] Standards of Medical Care in Diabetes 2016, [place] Diabetes [employer]. Diabetes Care. 2016.39(Suppl 1). Results may be falsely elevated after the administration of Sulfapyridine. Results may be falsely depressed after the administration of Sulfasalazine. Performed By: #### 4 5066-8 #### [facility] CLIA [id number] [address] [place] [address] [place] Potassium [Moles/Vol] 3.3 mmol/L Low 3.5-5.1 [facility] Comment on above: Order Comment: Speci men Type: BLOOD SPECIMEN Ordering Facility: [facility] Address: [address] [place] [address] Performed By: #### 4 5066-8 #### [facility] CLIA [id number] [address] [place] [address] [place] [facility] Sodium [Moles/Vol] 131 mmol/L Low 136-145 [facility] Comment on above: Order Comment: Speci men Type: BLOOD SPECIMEN Ordering Facility: [facility] Address: [address] [place] [address] Performed By: #### 4 5066-8 #### [facility] CLIA [id number] [address] [place] [address] [place] Urea nitrogen [Mass/Vol] 13 mg/dL Normal 01-19 [facility] Comment on above: Order Comment: Speci men Type: BLOOD SPECIMEN Ordering Facility: [facility] Address: [address] [place] [address] Performed By: #### 4 5066-8 #### [facility] CLIA [id number] [address] [place] [address] [place] CBC panel Auto (Bld)on 10-20 Erythrocyte distribution width (RBC) [Ratio] 14.6 % Normal 11.5-15.0 [facility] Comment on above: Order Comment: Speci men Type: BLOOD SPECIMEN Ordering Facility: [facility] Address: [address] [place] [address] Performed By: #### 4 5066-8 #### [facility] CLIA [id number] [address] [place] [address] [place] Hematocrit (Bld) [Volume fraction] 32.1 % Low 36.0-46.0 [facility] Comment on above: Order Comment: Speci men Type: BLOOD SPECIMEN Ordering Facility: [facility] Address: [address] [place] [address] Performed By: #### 4 5066-8 #### [facility] CLIA [id number] [address] [place] [address] [place] Hemoglobin (Bld) [Mass/Vol] 10.3 g/dL Low 11.5-15.5 [facility] Comment on above: Order Comment: Speci men Type: BLOOD SPECIMEN Ordering Facility: [facility] Address: [address] [place] [address] Performed By: #### 4 5066-8 #### [facility] CLIA [id number] [address] [place] [address] [place] MCH (RBC) [Entitic mass] 24.5 pg Low 26.0-34.0 [facility] Comment on above: Order Comment: Speci men Type: BLOOD SPECIMEN Ordering Facility: [facility] Address: [address] [place] [address] Performed By: #### 4 5066-8 #### [facility] CLIA [id number] [address] [place] [address] [place] MCHC (RBC) [Mass/Vol] 32.1 g/dL Normal 30.5-36.0 [facility] Comment on above: Order Comment: Speci men Type: BLOOD SPECIMEN Ordering Facility: [facility] Address: [address] [place] [address] Performed By: #### 4 5066-8 #### [facility] CLIA [id number] [address] [place] [address] [place] MCV (RBC) [Entitic vol] 76.4 fL Low 80.0-100.0 [facility] Comment on above: Order Comment: Speci men Type: BLOOD SPECIMEN Ordering Facility: [facility] Address: [address] [place] [address] Performed By: #### 4 5066-8 #### [facility] CLIA [id number] [address] [place] [address] [place] Nucleated RBC (Bld) [#/Vol] 10*3/uL Normal <0.01 [facility] Comment on above: Order Comment: Speci men Type: BLOOD SPECIMEN Ordering Facility: [facility] Address: [address] [place] [address] Performed By: #### 4 5066-8 #### [facility] CLIA [id number] [address] [place] [address] [place] Platelet mean volume (Bld) [Entitic vol] 9.1 fL Normal 9.0-12.7 [facility] Comment on above: Order Comment: Speci men Type: BLOOD SPECIMEN Ordering Facility: [facility] Address: [address] [place] [address] Performed By: #### 4 5066-8 #### [facility] CLIA [id number] [address] [place] [address] [place] Platelets (Bld) [#/Vol] 485 10*3/uL High 150-400 [facility] Comment on above: Order Comment: Speci men Type: BLOOD SPECIMEN Ordering Facility: [facility] Address: [address] [place] [address] Performed By: #### 4 5066-8 #### [facility] CLIA [id number] [address] [place] [address] [place] RBC (Bld) [#/Vol] 4.20 10*6/uL Normal 3.90-5.20 [facility] Comment on above: Order Comment: Speci men Type: BLOOD SPECIMEN Ordering Facility: [facility] Address: [address] [place] [address] Performed By: #### 4 5066-8 #### [facility] CLIA [id number] [address] [place], [place] [id number] [place] WBC (Bld) [#/Vol] 8.42 10*3/uL Normal 3.70-11.00 [facility] Comment on above: Order Comment: Speci men Type: BLOOD SPECIMEN Ordering Facility: [facility] Address: [address], [place] [address] Performed By: #### 4 5066-8 #### [facility] CLIA [id number] [address] [place] [address] [place] CONSULTon 10-20-2024 CONSULT HNO ID: [id number] Author: TUNG JENNINGS MD Service: Gastroenterology Author [...] extremity lateral fasciotomy closures 08/23/2024, presented to [facility] on 10/19 from [facility] for frequent recurring diarrhea. Noted recent hospitalization here at [facility] for accidental overdose at her facility with [...] any abdomin (more content not included)... Normal [facility] ED MED ADMINISTRATION DETAIL on 10-20-2024 ED MED ADMINISTRATION DETAIL [employer] Medication Administration Record [address] [place] [address] [id number] 10/19/2024 Patient: DALY EVANS Sex: Female : 1985 Age: 39y MEASUREMENTS: Wt: 86.2 kg, Ht/Jean-Paul: 67.0 in, BMI: 29.76 ALLERGIES: [place] Medication Ordered Medication Administration Date/Time IV NS [...] with patient. Verbalizes understanding. - 14:55 Maliha 19:10/19/2024 Shameka Rosen R.N. Scanned 19:10/19 Medication Discontinued: bag #1 infused. Total amount infused: 1000 mL. IV patency established. IV site checked: no pain, redness, or swelling. IV flushed thoroughly post-medication administration. - 19:20 John Velasco R.N. 1 of 2 [employer] Medication Ordered Medication Administration Date/Time IV NS [...] Maliha 20:17 10/19/2024 Shameka Rosen R.N. Scanned 20:10/19 Medication Discontinued: bag #2 infused upon transfer. Total amount infused: 1000 mL. IV patency established. IV site checked: no pain, redness, or swelling. IV flushed thoroughly post-medication administration. - 20:21 John Velasco R.N. 2 of 2 Normal [facility] ED NURSES CLINICAL NOTEon ED NURSES CLINICAL NOTE Nurse Narrative Nurse Clinical Narrative [address] [address] [id number] 10/19/2024 14:05:00 Patient: DALY EVANS Sex: Female : 1985 Age: 39y Disposition: Transfer to [facility] Disposition Decision Time: 19:10/19/2024 Departure Time: 20:10/19/2024 TRIAGE Arrived by EMS. [...] negative. No possible sources of infection. -- 14:10/19/24 CHARLY Isidro R.N. 14:10/19/24. BP: 90/63 MAP: 72. HR: 111. RR: 16. O2 saturation: 99% Temperature: 98.1 F. Pain level now 0/10. -- 14:10/19/24 CHARLY Isidro R.N. Measurements: 14:10/19/24 Wt: 86.2 kg, Ht/Jean-Paul: [...] diarrhea. -- 14:10/19/24 CHARLY Isidro R.N. Allergies: [place] -- 14:10/19/24 CHARLY Isidro R.N. Problems: superior mesenteric artery injury -- 14:10/19/24 CHARLY Isidro R.N. embolism and thrombosis of thoracic aorta -- 14:10/19/24 CHARLY Isidro R.N. 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 psychcoactive substance abuse -- 14:10/19/24 CHARLY Isidro R.N. history of suicide attempt -- 14:10/19/24 EDT Prashanth Isidro R.N. Depression -- 14:10/19/24 [place] Prashanth Isidro R.N. Diabetes Mellitus -- 14:10/19/24 [place] Prashanth Isidro R.N. Monoclonal gammopathy (clinical) -- 14:10/19/24 EDT Prashanth Isidro R.N. Thrombophilia -- 14:10/19/24 [place] Prashanth Isidro R.N. Hyperlipidemia -- 14:10/19/24 EDT Prashanth Isidro R.N. Iron deficiency anemia -- 14:10/19/24 [place] Prashanth Isidro R.N. Gastroesophageal Reflux Disease -- 14:10/19/24 [place] Prashanth Isidro R.N. 2 of 6 Nurse Narrative Vitamin D deficiency -- 14:10/19/24 [place] Prashanth Isidro R.N. Insomnia -- 14:10/19/24 [place] Prashanth Isidro R.N. Panic disorder -- 14:10/19/24 [place] Prashanth Iisdro R.N. Bipolar Disorder -- 14:10/19/24 [place] Prashanth Isidro R.N. Colostomy (procedure) -- 14:10/19/24 [place] Prashanth Isidro R.N. ADDITIONAL SURGERIES: abd surgery with colostomy -- 14:10/19/24 CHARLY Isidro R.N. compartmental syndrome bilat legs -- 14:10/19/24 [place] Prashanth Isidro R.N. Cholecystectomy -- 14:10/19/24 [facility] Prashanth Isidro R.N. -- 14:10/19/24 [facility] Prashanth Isidro R.N. Carpal Tunnel Surgery -- 14:10/19/24 [place] Prashanth Isidro R.N. History 14:10/19/24. SOCIAL HX: Never smoker. No alcohol use or drug use. The patient has not traveled outside the [place] Infectious disease exposure: No infectious disease exposure. ABUSE ASSESSMENT: Abuse denied. No suspicion of abuse (more content not included)... Normal [facility] ED ORDER SHEET ([facility] ONLY)on 10-20-2024 ED ORDER SHEET ([facility] ONLY) Order Sheet Order Sheet [place] [id number] [facility] [place] [address] [phone] 10/19/2024 Patient: DALY EVANS Sex: Female : 1985 Age: 39y MEASUREMENTS: Wt: 86.2 kg, Ht/Jean-Paul: 67.0 in, BMI: 29.76 ALLERGIES: [place] MEDICATION/IV/DRIP/FLUID ORDERS Order Description Priority Entered Acknowledged Completed IV NS 0.9 %1000 mL at 999 14:51 10/19/2024 14:51 14:55 mL/hr (NOW x1) Herbert Flores, 10/19/2024 10/19/2024 Shameka Purcell RPriscilaN. IV NS 0.9 %1000 mL at 250 17:10 10/19/2024 17:11 18:14 mL/hr (NOW x1) Herbert Flores, 10/19/2024 10/19/2024 Shameka Purcell R.N. Reason for ordering with alerts: Benefits outweigh risks --17:10 10/19/2024 Herbert Flores D.O. LAB ORDERS Order Description Priority Entered Acknowledged Collected Completed CBC w Diff Stat Stat 14:51 10/19/2024 14:51 10/19/2024 19:26 10/19/2024 Maliha Alaniz R.N. Charles Wilbur, D.O. R.N. 1 of 2 Order Sheet CMP Stat Stat 14:51 10/19/2024 14:51 10/19/2024 19:26 10/19/2024 Maliha Alaniz R.N. Charles Wilbur, D.O. R.N. Troponin-I Stat Stat 14:51 10/19/2024 14:51 10/19/2024 19:26 10/19/2024 Maliha Alaniz R.N. Charles Wilbur, D.O. R.N. Urinalysis Stat Stat 14:51 10/19/2024 Cancelled: Patient Off Unit Herbert Flores, 20:20 EDT John Velasco R.N. D.O. EKG - ED Stat Stat 14:51 10/19/2024 14:51 10/19/2024 19:26 10/19/2024 Maliha Alaniz R.N. Charles Wilbur, D.O. R.N. Magnesium Stat Stat 18:28 10/19/2024 18:32 10/19/2024 19:27 10/19/2024 Jeny Alaniz R.N. Charles Wilbur, D.O. R.N. DIAGNOSTIC STUDY ORDERS Order Description Priority Entered Acknowledged Completed STAFF ORDERS Order Description Priority Entered Acknowledged Collected Completed IV Saline Lock 14:51 10/19/2024 14:51 10/19/2024 19:26 10/19/2024 Maliha Alaniz R.N. Charles Wilbur, D.O. R.N. [Electronically signed by Herbert Flores D.O. (10/20/2024 07:16 EDT)] 2 of 2 Normal [facility] ED PHYSICIAN CLINICAL REPORT on 10-20-2024 ED PHYSICIAN CLINICAL REPORT Narrative Physician Clinical Narrative [address] [address] [id number] 10/19/2024 14:05:00 Patient: DALY EVANS Sex: Female : 1985 Age: 39y Disposition: Transfer to [facility] Disposition Decision Time: 19:03 10/19/2024 Departure Time: [...] ileostomy in place she is at the snf recuperating getting TPN. And the last room 5 days she has been getting dehydrated she so she drank something or gets fluids it comes out her bag. And she has been feeling lightheaded she has been passing out and they may give her IV fluids it is a snf and it has not been working.). Described [...] syringe: twice a day . (give per IN MAR dose of 0.95ml) escitalopram 20 mg [...] less than 70mg/dl) 2 of 9 Narrative Olga Soldonnaar U-100 Insulin 100 unit/mL (3 mL) subcutaneous [...] 1500 mg twice a day . Allergies: [place] SOCIAL HISTORY Never smoker. No alcohol use. [...] Above high (more content not included)... Normal [facility] ED SUPER BILLon 10-20-2024 ED SUPER BILL [facility] [address] [place] [address] [phone] 10/19/2024 Patient: DALY EVANS Sex: Female : 1985 Age: 39y Facility Professional Category Item Description Code Code Quantity Fee Total Drugs Normal Saline 979982 2 $0.00 $0.00 1000cc (298232) Nurse/E/M EMERGENCY 042633 1 $0.00 $0.00 DEPT VISIT HIGH SEVERITYFUNCJ (08336-49) Nurse/IV/IM/Infusions Hydration 604234 4 $0.00 $0.00 additional hour (89961) Nurse/IV/IM/Infusions Hydration initial 945392 1 $0.00 $0.00 (84299) Grand $0.00 Total Providers Herbert Flores D.O. Chief Complaint 1 of 2 [facility] NEAR-SYNCOPE. ( patient came in she is had abdominal surgery which has a ileostomy in place she is at the snf recuperating getting TPN. And the last room 5 days she has been getting dehydrated she so she drank something or gets fluids it comes out her bag. And she has been feeling lightheaded she has been passing out and they may give her IV fluids it is a snf and it has not been working.). Principal Diagnosis Dizziness. Syncope. Renal insufficiency. questioning dumping syndrome. ICD-10 Codes R55: Syncope and collapse R42: Dizziness and giddiness N28.9: Disorder of kidney and ureter, unspecified 2 of 2 Normal [facility] ED VISIT SUMMARYon ED VISIT SUMMARY Visit Overview Visit Overview [facility] [address] [place] [address] [phone] 10/19/2024 Patient: DALY EVANS Sex: Female : [...] She denies any syncopal episodes. ) ALLERGIES [place] HOME MEDICATIONS acetaminophen 325 mg chewable tablet: 1 tablet every six hours . Visit Overview aspirin 81 mg chewable tablet: 1 tablet once a day . atorvastatin 40 mg tablet: 1 tablet once a day . enoxaparin 100 mg/mL subcutaneous syringe: twice a day . (give per IN MAR dose of 0.95ml) escitalopram 20 mg [...] PAST SURGICAL HISTORY abd surgery with colostomy Visit Overview Carpal Tunnel Surgery Cholecystectomy SOCIAL [...] RENAL INSUFFICIENCY SYNCOPE 4 of 4 Normal [facility] ED VITALS FLOW SHEETon 10-20 ED VITALS FLOW SHEET Vitals Vital Sign Flow Sheet [address] [place] [address] [phone] 10/19/2024 Patient: DALY EVANS Sex: Female : [...] 98.1 F 0 1 of 1 Normal [facility] Magnesium SerPl-mCncon 10-20 Magnesium [Mass/Vol] 1.7 mg/dL Normal 1.6-2.6 [facility] Comment on above: Order Comment: Speci men Type: BLOOD SPECIMEN Ordering Facility: [facility] Address: [address] [place] [address] Performed By: #### 4 5066-8 #### [facility] CLIA [id number] [address] [place] [address] OF [facility] NUTRITIONon 10-20-2024 NUTRITION HNO ID: [id number] Author: MOUNIKA SARABIA RD Service: ? Author Type: Registered Dietitian Type: Nutrition Filed: 10/20/2024 15:19 Note Text: NUTRITION THERAPY INITIAL ASSESSMENT SERVICE DATE: 10/20/2024 SERVICE TIME: Start Time: 1251 REASON: [facility] Nutrition Assessment: Recommended Malnutrition Diagnosis: Mild [...] needs: 1849 - 2049 Calorie Calculation Method: [place] (with activity factor) Estimated protein needs (grams): [...] October 20, 2024 TIME: 2:59 PM Normal [facility] TSH SerPl-aCncon 10-20-2024 TSH Qn 2.798 m[IU]/L Normal 0.358-3.740 [facility] Comment on above: Order Comment: Speci men Type: BLOOD SPECIMEN Ordering Facility: [facility] Address: [facility] [place] [address] Result Comment: 3rd generation ultra sensitive TSH. Performed By: #### 4 5066-8 #### [facility] CLIA [id number] [facility] [place] [address] [place] BMP with eGFRon 10-19-2024 AGE 39 years Normal [facility] Comment on above: Performed By: #### 2 42526 #### [facility],[address] [place] [address] 14767 Anion gap [Moles/Vol] 17 mmol/L Normal 10 - 20 [facility] Comment on above: Performed By: #### 2 93013 #### [facility],[address] [place] [address] 33472 BMP with eGFR Normal [facility] Comment on above: Result Comment: BASI C METABOLIC PANEL Performed By: #### 2 08195 #### [facility],[address] [place] [address] 37172 Calcium [Mass/Vol] 9.8 mg/dL Normal 8.5 - 10.1 [facility] Comment on above: Result Comment: CALC IUM REPEATED Performed By: #### 2 29571 #### [facility],[address] [place] [address] 91975 Chloride [Moles/Vol] 97 mmol/L Low 98 - 107 [facility] Comment on above: Performed By: #### 2 69275 #### [facility],[address] [place] [address] 72439 CO2 [Moles/Vol] 23.4 mmol/L Normal 21.0 - 32.0 [facility] Comment on above: Performed By: #### 2 91440 #### [facility],[address] [place] [address] 75648 Creatinine [Mass/Vol] 1.44 mg/dL High 0.55 - 1.02 [facility] Comment on above: Performed By: #### 2 54443 #### [facility],[address] [place] [address] 83817 eGFR 40 ML/MINUTE Low 60 - 999 [facility] Comment on above: Performed By: #### 2 83578 #### [facility],[address] [place] [address] 72369 eGFR(AA) 49 ML/MINUTE Low 60 - 999 [facility] Comment on above: Result Comment: ACCO RDING TO THE NATIONAL KIDNEY DISEASE EDUCATION PROGRAM(NKDE), A NORMAL eGFR IS A VALUE GREATER THAN OR EQUAL TO 60 ML/MIN/1.73 SQ METERS. CHRONIC KIDNEY DISEASE: <60mL/MIN/1.73 SQ METERS KIDNEY FAILURE: <15mL/MIN/1.73 SQ METERS THIS TEST SHOULD ONLY BE USED FOR PATIENTS 18 YEARS OF AGE AND OLDER. Performed By: #### 2 75853 #### [facility],[address] [place] [address] 88678 Glucose [Mass/Vol] 108 mg/dL High 74 - 106 [facility] Comment on above: Performed By: #### 2 86596 #### [facility],[address] [place] [address] 85597 Potassium [Moles/Vol] 3.0 mmol/L Low 3.5 - 5.1 [facility] Comment on above: Performed By: #### 2 65395 #### [facility],[address] [place] [address] 92611 Sodium [Moles/Vol] 134 mmol/L Low 136 - 145 [facility] Comment on above: Performed By: #### 2 49287 #### [facility],[address] [place] [address] 61943 Urea nitrogen [Mass/Vol] 19 mg/dL High 7 - 18 [facility] Comment on above: Performed By: #### 2 63330 #### [facility],[address] [place] [address] 98285 CBC + DIFFon 10-19-2024 Baso # 0.07 x10EE3/UL Normal 0.00 - 0.10 [facility] Comment on above: Performed By: #### 2 66623 ####[facility],[address] [place], [place] [address] Basophils/100 WBC (Bld) 0.6 % Normal 0.0 - 2.0 [facility] Comment on above: Performed By: #### 2 40637 ####[facility],[address] [place] [address] CBC + DIFF Normal [facility] Comment on above: Result Comment: CBC- COMPLETE BLOOD COUNT Performed By: #### 2 97902 ####[facility],[address] [place] [address] EO # 0.06 x10EE3/UL Normal 0.00 - 0.50 [facility] Comment on above: Performed By: #### 2 42816 ####[facility],[address] [place] [address] Eosinophils/100 WBC (Bld) 0.5 % Normal 0.0 - 7.0 [facility] Comment on above: Performed By: #### 2 15248 ####[facility],[address] [place] [address] Erythrocyte distribution width (RBC) [Ratio] 16.3 % High 12.0 - 15.6 [facility] Comment on above: Performed By: #### 2 34071 ####[facility],[address] [place] [address] Hematocrit (Bld) [Volume fraction] 38.0 % Normal 34.0 - 46.0 [facility] Comment on above: Performed By: #### 2 68322 ####[facility],[address] [place], [place] [address] Hemoglobin (Bld) [Mass/Vol] 12.6 g/dL Normal 12.0 - 16.0 [facility] Comment on above: Performed By: #### 2 71415 ####[facility],[address] [place] [address] Lymph # 2.40 x10EE3/UL Normal 0.80 - 2.80 [facility] Comment on above: Performed By: #### 2 94872 ####[facility],[address] [place] [address] Lymphocytes/100 WBC (Bld) 20.0 % Normal 20.0 - 45.0 [facility] Comment on above: Performed By: #### 2 70285 ####[facility],[address] [place] [address] MANUAL DIFF N/A Normal [facility] Comment on above: Performed By: #### 2 00651 ####[facility],[address] [place] [address] MCH (RBC) [Entitic mass] 25 pg Low 27 - 33 [facility] Comment on above: Performed By: #### 2 35461 ####[facility],[address] [place] [address] MCHC 33 X10 3 Normal 32 - 36 [facility] Comment on above: Performed By: #### 2 72825 ####[facility],[address] [place], [place] [address] MCV (RBC) [Entitic vol] 74 fL Low 80 - 99 [facility] Comment on above: Performed By: #### 2 23302 ####[facility],[address] [place] [address] 62160 Iron # 0.86 x10EE3/UL Normal 0.20 - 1.00 [facility] Comment on above: Performed By: #### 2 01153 ####[facility],[address] [place] [address] 80389 MONOS % 7.2 % Normal 0.0 - 10.0 [facility] Comment on above: Performed By: #### 2 13819 ####[facility],[address] [place] [address] 33503 Morphology Stan (Bld) [Interp] SEE BELOW Normal [facility] Comment on above: Performed By: #### 2 24211 ####[facility],[address] [place] [address] 69943 Neut # 8.62 x10EE3/UL High 1.50 - 7.10 [facility] Comment on above: Performed By: #### 2 04953 ####[facility],[address] [place] [address] 84757 Neutrophils/100 WBC (Bld) 71.8 % Normal 46.0 - 76.0 [facility] Comment on above: Performed By: #### 2 88997 ####[facility],[address] [place] [address] 18405 PLATELET 804 x10EE3/UL High 150 - 450 [facility] Comment on above: Performed By: #### 2 68916 ####[facility],[address] [place] [address] 32573 Platelet mean volume (Bld) [Entitic vol] 7.9 fL Normal 6.6 - 10.5 [facility] Comment on above: Result Comment: AUTO MATED DIFFERENTIAL Performed By: #### 2 04587 ####[facility],[address] [place] [address] 44694 PLT EST INCREASED Normal [facility] Comment on above: Performed By: #### 2 50996 ####[facility],[address] [place] [address] 50598 RBC 5.12 x 10EE6/UL Normal 4.10 - 5.30 [facility] Comment on above: Performed By: #### 2 05149 ####[facility],[address] [place] [address] 57946 WBC 12.0 x 10EE3/UL High 4.5 - 10.8 [facility] Comment on above: Performed By: #### 2 21115 ####[facility],[address] [place], [place] [id number] CMP with eGFRon 10-19-2024 AGE 39 years Normal [facility] Comment on above: Performed By: #### 2 89420 ####[facility],[address] [place] [address] 84504 Albumin [Mass/Vol] 3.5 g/dL Normal 3.4 - 5.0 [facility] Comment on above: Performed By: #### 2 51467 ####[facility],[address] [place], [place] [address] Albumin/Globulin [Mass ratio] 0.6 {ratio} Low 0.9 - 1.6 [facility] Comment on above: Performed By: #### 2 44036 ####[facility],[address] [place] [address] 00344 ALK PHOS 170 U/L High 46 - 116 [facility] Comment on above: Performed By: #### 2 03165 ####[facility],[address] [place] [address] 83187 ALT [Catalytic activity/Vol] 37 U/L Normal 16 - 63 [facility] Comment on above: Performed By: #### 2 43932 ####[facility],[address] [place] [address] 69069 Anion gap [Moles/Vol] 17 mmol/L Normal 10 - 20 [facility] Comment on above: Performed By: #### 2 04747 ####[facility],[address] [place] [address] 18701 AST [Catalytic activity/Vol] 30 U/L Normal 13 - 39 [facility] Comment on above: Performed By: #### 2 32911 ####[facility],[address] [place] [address] 94727 B/C RATIO 10 ratio Normal 0 - 30 [facility] Comment on above: Performed By: #### 2 94693 ####[facility],[address] [place] [address] 41388 Bilirubin [Mass/Vol] 1.1 mg/dL High 0.2 - 1.0 [facility] Comment on above: Performed By: #### 2 35286 ####[facility],[address] [place] [address] 75681 Calcium [Mass/Vol] 9.7 mg/dL Normal 8.5 - 10.1 [facility] Comment on above: Performed By: #### 2 73626 ####[facility],[address] [place] [address] 70847 Chloride [Moles/Vol] 92 mmol/L Low 98 - 107 [facility] Comment on above: Performed By: #### 2 15004 ####[facility],[address] [place] [address] 42937 CMP with eGFR Normal [facility] Comment on above: Result Comment: COMP REHENSIVE METABOLIC PANEL Performed By: #### 2 04706 ####[facility],[address] [place] [address] 37427 CO2 [Moles/Vol] 24.6 mmol/L Normal 21.0 - 32.0 [facility] Comment on above: Performed By: #### 2 44593 ####[facility],[address] [place] [address] 18049 Creatinine [Mass/Vol] 2.18 mg/dL High 0.55 - 1.02 [facility] Comment on above: Performed By: #### 2 62651 ####[facility],[address] [place] [address] 55316 eGFR 25 ML/MINUTE Low 60 - 999 [facility] Comment on above: Performed By: #### 2 17591 ####[facility],[address] [place] [address] 59838 eGFR(AA) 30 ML/MINUTE Low 60 - 999 [facility] Comment on above: Result Comment: ACCO RDING TO THE NATIONAL KIDNEY DISEASE EDUCATION PROGRAM(NKDE), A NORMAL eGFR IS A VALUE GREATER THAN OR EQUAL TO 60 ML/MIN/1.73 SQ METERS. CHRONIC KIDNEY DISEASE: <60mL/MIN/1.73 SQ METERS KIDNEY FAILURE: <15mL/MIN/1.73 SQ METERS THIS TEST SHOULD ONLY BE USED FOR PATIENTS 18 YEARS OF AGE AND OLDER. Performed By: #### 2 06378 ####[facility],[address] [place] [address] 19963 Globulin (S) [Mass/Vol] 6.0 g/dL High 1.5 - 3.8 [facility] Comment on above: Performed By: #### 2 09155 ####[facility],[address] [place] [address] 16728 Glucose [Mass/Vol] 146 mg/dL High 74 - 106 [facility] Comment on above: Performed By: #### 2 37669 ####[facility],[address] [place] [address] 81841 Potassium [Moles/Vol] 3.3 mmol/L Low 3.5 - 5.1 [facility] Comment on above: Performed By: #### 2 67586 ####[facility],[address] [place] [address] 93727 Protein [Mass/Vol] 9.5 g/dL High 6.4 - 8.2 [facility] Comment on above: Performed By: #### 2 27300 ####[facility],[address] [place] [address] 64540 Sodium [Moles/Vol] 130 mmol/L Low 136 - 145 [facility] Comment on above: Performed By: #### 2 73718 ####[facility],[address] [place] [address] 55866 Urea nitrogen [Mass/Vol] 21 mg/dL High 7 - 18 [facility] Comment on above: Performed By: #### 2 21214 ####[facility],[address] [place] [address] 23711 HISTORY PHYSICALon 04-25-202 5 HISTORY PHYSICAL HNO ID: [id number] Author: MICHAEL ELLIS MD Service: Hospital Medicine Author Type: Physician Type: H&P Filed: 10/19/2024 23:29 Note Text: HISTORY AND PHYSICAL EXAMINATION PATIENT NAME: Daly Evans SERVICE DATE AND TIME: 10/19/2024 11:22 PM PRIMARY CARE PHYSICIAN: Fredrick Boland DO CHIEF COMPLAINT: Persistent stools since having ileostomy placed at [facility] HPI: The patient is a 39-year-old female with a past medical history of bipolar disorder, generalized anxiety/panic disorder, iron deficiency anemia, vitamin D deficiency, tobacco abuse, polysubstance abuse with a history of suicide attempt and presented to [facility] 08/20/2024 with severe abdominal pain and was [...] jejunostomy and closure open abdomen 08/22/2024 at [facility] during that stay developed a DVT and was placed on Lovenox, presently in a [facility] facility who continues to have frequent recurring diarrhea. She was on TPN through a PICC line until 2 weeks ago. Due to her persistent diarrhea she was sent to the outside ER. The outside ER contacted her surgeon at the [facility] who felt patient could safely be [...] earlier the same day. Creatinine available to me 10 days ago as was 0.83 - [...] suicide (HCC) polysubstance Bipolar depression (HCC) [facility] Whyte Gestational diabetes mellitus in (HCC) [...] nicotine Patient quit (more content not included)... [facility] 10-19-2024 Magnesium [Mass/Vol] 1.9 mg/dL Normal 1.8 - 2.4 [facility] Comment on above: Performed By: #### 2 79086 #### [facility],[address] [place] [address] 27823 TROPONINon 10-19-2024 HS TROPONIN 4.1 pg/mL Normal 0.0 - 51.4 [facility] Comment on above: Performed By: #### 2 42392 #### [facility],[address] [place] [address] 50991 BMP with eGFRon 10-16-2024 AGE 39 years Normal [facility] Comment on above: Performed By: #### 2 84458 #### [facility],[address] [place] [address] 82812 Anion gap [Moles/Vol] 14 mmol/L Normal 10 - 20 [facility] Comment on above: Performed By: #### 2 59620 #### [facility],[address] [place] [address] 09550 BMP with eGFR Normal [facility] Comment on above: Result Comment: BASI C METABOLIC PANEL Performed By: #### 2 46500 #### [facility],[address] [place] [address] 93357 Calcium [Mass/Vol] 8.7 mg/dL Normal 8.5 - 10.1 [facility] Comment on above: Performed By: #### 2 70872 #### [facility],[address] [place] [address] 21558 Chloride [Moles/Vol] 99 mmol/L Normal 98 - 107 [facility] Comment on above: Performed By: #### 2 53964 #### [facility],[address] [place] [address] 38484 CO2 [Moles/Vol] 24.5 mmol/L Normal 21.0 - 32.0 [facility] Comment on above: Performed By: #### 2 43910 #### [facility],[address] [place] [address] 21180 Creatinine [Mass/Vol] 1.16 mg/dL High 0.55 - 1.02 [facility] Comment on above: Performed By: #### 2 37192 #### [facility],[address] [place] [address] 35092 eGFR 51 ML/MINUTE Low 60 - 999 [facility] Comment on above: Performed By: #### 2 02815 #### [facility],[address] [place] [address] 49539 GFR/1.73 sq M.predicted among non-blacks MDRD (S/P/Bld) [Vol rate/Area] mL/min/{1.73_m2} Normal 60 - 999 [facility] Comment on above: Result Comment: ACCO RDING TO THE NATIONAL KIDNEY DISEASE EDUCATION PROGRAM(NKDE), A NORMAL eGFR IS A VALUE GREATER THAN OR EQUAL TO 60 ML/MIN/1.73 SQ METERS. CHRONIC KIDNEY DISEASE: <60mL/MIN/1.73 SQ METERS KIDNEY FAILURE: <15mL/MIN/1.73 SQ METERS THIS TEST SHOULD ONLY BE USED FOR PATIENTS 18 YEARS OF AGE AND OLDER. Performed By: #### 2 85175 #### [facility],[address] [place] [address] 96206 Glucose [Mass/Vol] 97 mg/dL Normal 74 - 106 [facility] Comment on above: Performed By: #### 2 82704 #### [facility],[address] [place] [address] 92791 Potassium [Moles/Vol] 3.2 mmol/L Low 3.5 - 5.1 [facility] Comment on above: Performed By: #### 2 08590 #### [facility],[address] [place] [address] 39217 Sodium [Moles/Vol] 134 mmol/L Low 136 - 145 [facility] Comment on above: Performed By: #### 2 44432 #### [facility],[address] [place] [address] 90008 Urea nitrogen [Mass/Vol] 22 mg/dL High 7 - 18 [facility] Comment on above: Performed By: #### 2 69232 #### [facility],[address] [place] [address] 77005 CBC + DIFFon 10-16-2024 Baso # 0.02 x10EE3/UL Normal 0.00 - 0.10 [facility] Comment on above: Performed By: #### 2 97009 #### [facility],[address] [place] [address] 35563 Basophils/100 WBC (Bld) 0.4 % Normal 0.0 - 2.0 [facility] Comment on above: Performed By: #### 2 47805 #### [facility],[address] [place] [address] 19312 CBC + DIFF Normal [facility] Comment on above: Result Comment: CBC- COMPLETE BLOOD COUNT Performed By: #### 2 42625 #### [facility],[address] [place] [address] 29745 EO # 0.15 x10EE3/UL Normal 0.00 - 0.50 [facility] Comment on above: Performed By: #### 2 93781 #### [facility],[address] [place] [address] 55308 Eosinophils/100 WBC (Bld) 2.3 % Normal 0.0 - 7.0 [facility] Comment on above: Performed By: #### 2 43398 #### [facility],[address] [place] [address] 55087 Erythrocyte distribution width (RBC) [Ratio] 16.1 % High 12.0 - 15.6 [facility] Comment on above: Performed By: #### 2 75231 #### [facility],[address] [place] [id number] Hematocrit (Bld) [Volume fraction] 31.0 % Low 34.0 - 46.0 [facility] Comment on above: Performed By: #### 2 12207 #### [facility],[address] [place] [address] Hemoglobin (Bld) [Mass/Vol] 10.3 g/dL Low 12.0 - 16.0 [facility] Comment on above: Performed By: #### 2 04536 #### [facility],[address] [place] [address] Lymph # 2.20 x10EE3/UL Normal 0.80 - 2.80 [facility] Comment on above: Performed By: #### 2 59129 #### [facility],[address] [place] [address] Lymphocytes/100 WBC (Bld) 33.9 % Normal 20.0 - 45.0 [facility] Comment on above: Performed By: #### 2 66755 #### [facility],[address] [place] [address] MANUAL DIFF N/A Normal [facility] Comment on above: Performed By: #### 2 23796 #### [facility],[address] [place] [address] MCH (RBC) [Entitic mass] 24 pg Low 27 - 33 [facility] Comment on above: Performed By: #### 2 67664 #### [facility],[address] [place] [address] MCHC 33 X10 3 Normal 32 - 36 [facility] Comment on above: Performed By: #### 2 98689 #### [facility],[address] [place], [place] [address] MCV (RBC) [Entitic vol] 73 fL Low 80 - 99 [facility] Comment on above: Performed By: #### 2 42591 #### [facility],[address] [place] [address] Iron # 0.66 x10EE3/UL Normal 0.20 - 1.00 [facility] Comment on above: Performed By: #### 2 40993 #### [address] [address] MONOS % 10.2 % High 0.0 - 10.0 [facility] Comment on above: Performed By: #### 2 47338 #### [facility],[address] [place] [address] Morphology Stan (Bld) [Interp] N/A Normal [facility] Comment on above: Performed By: #### 2 21653 #### [facility],[address] [place] [address] Neut # 3.46 x10EE3/UL Normal 1.50 - 7.10 [facility] Comment on above: Performed By: #### 2 42752 #### [place] [address] Neutrophils/100 WBC (Bld) 53.3 % Normal 46.0 - 76.0 [facility] Comment on above: Performed By: #### 2 67280 #### [place] [address] PLATELET 516 x10EE3/UL High 150 - 450 [facility] Comment on above: Performed By: #### 2 78341 #### [place] [address] Platelet mean volume (Bld) [Entitic vol] 7.2 fL Normal 6.6 - 10.5 [facility] Comment on above: Result Comment: AUTO MATED DIFFERENTIAL Performed By: #### 2 81138 #### [place] [address] RBC 4.23 x 10EE6/UL Normal 4.10 - 5.30 [facility] Comment on above: Performed By: #### 2 15561 #### [address],[place] [address] WBC 6.5 x 10EE3/UL Normal 4.5 - 10.8 [facility] Comment on above: Performed By: #### 2 71474 #### [facility],[address] [place] [address]36 CBC + DIFFon 10-15-2024 Baso # 0.04 x10EE3/UL Normal 0.00 - 0.10 [facility] Comment on above: Performed By: #### 2 30293 #### [facility],[address] [place] [address] Basophils/100 WBC (Bld) 0.5 % Normal 0.0 - 2.0 [facility] Comment on above: Performed By: #### 2 36827 #### [facility],[address] [place] [address] CBC + DIFF Normal [facility] Comment on above: Result Comment: CBC- COMPLETE BLOOD COUNT Performed By: #### 2 28157 #### [facility],[address] [place] [address] EO # 0.15 x10EE3/UL Normal 0.00 - 0.50 [facility] Comment on above: Performed By: #### 2 61957 #### [facility],[address] [place] [address] Eosinophils/100 WBC (Bld) 1.9 % Normal 0.0 - 7.0 [facility] Comment on above: Performed By: #### 2 02008 #### [facility],[address] [place] [address] Erythrocyte distribution width (RBC) [Ratio] 16.6 % High 12.0 - 15.6 [facility] Comment on above: Performed By: #### 2 98070 #### [facility],[address] [place] [address]280 Hematocrit (Bld) [Volume fraction] 36.9 % Normal 34.0 - 46.0 [facility] Comment on above: Performed By: #### 2 03429 #### [facility],[address] [place] [address] Hemoglobin (Bld) [Mass/Vol] 12.3 g/dL Normal 12.0 - 16.0 [facility] Comment on above: Result Comment: TEST REPEATED Performed By: #### 2 51843 #### [facility],[address] [place] [address] Lymph # 2.93 x10EE3/UL High 0.80 - 2.80 [facility] Comment on above: Performed By: #### 2 05613 #### [facility],[address] [place] [address] Lymphocytes/100 WBC (Bld) 37.1 % Normal 20.0 - 45.0 [facility] Comment on above: Performed By: #### 2 01191 #### [facility],[address] [place] [address] MANUAL DIFF N/A Normal [facility] Comment on above: Performed By: #### 2 53763 #### [facility],[address] [place] [address] MCH (RBC) [Entitic mass] 25 pg Low 27 - 33 [facility] Comment on above: Performed By: #### 2 78568 #### [facility],[address] [place] [address] MCHC 33 X10 3 Normal 32 - 36 [facility] Comment on above: Performed By: #### 2 24374 #### [facility],[address] [place], [place] [address] MCV (RBC) [Entitic vol] 75 fL Low 80 - 99 [facility] Comment on above: Performed By: #### 2 08806 #### [facility],[address] [place] [address] Iron # 0.58 x10EE3/UL Normal 0.20 - 1.00 [facility] Comment on above: Performed By: #### 2 42659 #### [address] [address] MONOS % 7.3 % Normal 0.0 - 10.0 [facility] Comment on above: Performed By: #### 2 71826 #### [facility],[address] [place] [address] Morphology Stan (Bld) [Interp] N/A Normal [facility] Comment on above: Performed By: #### 2 89741 #### [facility],[address] [place] [address] Neut # 4.21 x10EE3/UL Normal 1.50 - 7.10 [facility] Comment on above: Performed By: #### 2 64830 #### [place] [address] Neutrophils/100 WBC (Bld) 53.3 % Normal 46.0 - 76.0 [facility] Comment on above: Performed By: #### 2 87893 #### [place] [address] PLATELET 562 x10EE3/UL High 150 - 450 [facility] Comment on above: Performed By: #### 2 87779 #### [place] [address] Platelet mean volume (Bld) [Entitic vol] 8.2 fL Normal 6.6 - 10.5 [facility] Comment on above: Result Comment: AUTO MATED DIFFERENTIAL Performed By: #### 2 84938 #### [place] [address] RBC 4.92 x 10EE6/UL Normal 4.10 - 5.30 [facility] Comment on above: Performed By: #### 2 55361 #### [place] [address],[place] [address] WBC 7.9 x 10EE3/UL Normal 4.5 - 10.8 [facility] Comment on above: Performed By: #### 2 74294 #### [facility],[address] [place] [address] CMP with eGFRon 10-15-2024 AGE 39 years Normal [facility] Comment on above: Performed By: #### 2 16851 #### [facility],[address] [place] [address] Albumin [Mass/Vol] 2.9 g/dL Low 3.4 - 5.0 [facility] Comment on above: Performed By: #### 2 26738 #### [facility],[address] [place] [address]603 Albumin/Globulin [Mass ratio] 0.5 {ratio} Low 0.9 - 1.6 [facility] Comment on above: Performed By: #### 2 13556 #### [facility],[address] [place] [address] 16080 ALK PHOS 151 U/L High 46 - 116 [facility] Comment on above: Performed By: #### 2 59695 #### [facility],[address] [place] [address]9437 ALT [Catalytic activity/Vol] 45 U/L Normal 16 - 63 [facility] Comment on above: Performed By: #### 2 22291 #### [facility],[address] [place] [address] Anion gap [Moles/Vol] 21 mmol/L High 10 - 20 [facility] Comment on above: Performed By: #### 2 22197 #### [facility],[address] [place] [address] 81602 AST [Catalytic activity/Vol] 30 U/L Normal 13 - 39 [facility] Comment on above: Performed By: #### 2 33223 #### [facility],[address] [place] [address]38 B/C RATIO 19 ratio Normal 0 - 30 [facility] Comment on above: Performed By: #### 2 12137 #### [facility],[address] [place] [address] Bilirubin [Mass/Vol] 0.9 mg/dL Normal 0.2 - 1.0 [facility] Comment on above: Performed By: #### 2 27370 #### [facility],[address] [place] [address]94 Calcium [Mass/Vol] 9.4 mg/dL Normal 8.5 - 10.1 [facility] Comment on above: Result Comment: RESU LTS REPEATED AND VERIFIED Performed By: #### 2 86701 #### [facility],[address] [place] [address] Chloride [Moles/Vol] 94 mmol/L Low 98 - 107 [facility] Comment on above: Performed By: #### 2 99869 #### [facility],[address] [place] [address] 85294 CMP with eGFR Normal [facility] Comment on above: Result Comment: COMP REHENSIVE METABOLIC PANEL Performed By: #### 2 22531 #### [facility],[address] [place] [address]991 CO2 [Moles/Vol] 20.9 mmol/L Low 21.0 - 32.0 [facility] Comment on above: Result Comment: RESU LTS REPEATED AND VERIFIED Performed By: #### 2 07611 #### [facility],[address] [place] [address]268 Creatinine [Mass/Vol] 1.49 mg/dL High 0.55 - 1.02 [facility] Comment on above: Result Comment: RESU LTS REPEATED AND VERIFIED Performed By: #### 2 14030 #### [facility],[address],[place] [address] eGFR 39 ML/MINUTE Low 60 - 999 [facility] Comment on above: Performed By: #### 2 21012 #### [facility],[address] [place] [address]678 eGFR(AA) 47 ML/MINUTE Low 60 - 999 [facility] Comment on above: Result Comment: ACCO RDING TO THE NATIONAL KIDNEY DISEASE EDUCATION PROGRAM(NKDE), A NORMAL eGFR IS A VALUE GREATER THAN OR EQUAL TO 60 ML/MIN/1.73 SQ METERS. CHRONIC KIDNEY DISEASE: <60mL/MIN/1.73 SQ METERS KIDNEY FAILURE: <15mL/MIN/1.73 SQ METERS THIS TEST SHOULD ONLY BE USED FOR PATIENTS 18 YEARS OF AGE AND OLDER. Performed By: #### 2 25757 #### [facility],[address] [place] [address] Globulin (S) [Mass/Vol] 5.8 g/dL High 1.5 - 3.8 [facility] Comment on above: Performed By: #### 2 73335 #### [facility],[address] [place] [address] Glucose [Mass/Vol] 101 mg/dL Normal 74 - 106 [facility] Comment on above: Performed By: #### 2 52652 #### [facility],[address] [place] [address] Potassium [Moles/Vol] 3.4 mmol/L Low 3.5 - 5.1 [facility] Comment on above: Performed By: #### 2 37542 #### [facility],[address] [place] [address]373 Protein [Mass/Vol] 8.7 g/dL High 6.4 - 8.2 [facility] Comment on above: Performed By: #### 2 27908 #### [facility],[address] [place] [address] Sodium [Moles/Vol] 132 mmol/L Low 136 - 145 [facility] Comment on above: Performed By: #### 2 79704 #### [facility],[address] [place] [address] 18663 Urea nitrogen [Mass/Vol] 29 mg/dL High 7 - 18 [facility] Comment on above: Performed By: #### 2 47351 #### [facility],[address] [place] [address] HEMOGLOBIN A1C (POM)on 10-15 Glucose [Mass/Vol] 131.2 mg/dL High 0.0 - 0.0 [facility] Comment on above: Result Comment: BLDo HEMOGLOBIN A1C REFERENCE RANGESBLDo Suggested Diagnosis HbA1c(%) HbA1C (mmol/mol Diabetic >/=6.5 >/=48 Prediabetes 5.7 - 6.4 39 - 47 Normal <5.7 <39 Performed By: #### 2 59580 #### [facility],[address] [place] [address] HbA1c (Bld) [Mass fraction] 6.2 % Normal 0.0 - 6.5 [facility] Comment on above: Performed By: #### 2 77285 #### [facility],[address] [place] [address]101 LIPID PROFILEon 10-15-2024 Cholesterol [Mass/Vol] 88 mg/dL Normal 0 - 240 [facility] Comment on above: Performed By: #### 2 20786 #### [facility],[address] [place] [address]83 Cholesterol in HDL [Mass/Vol] 66 mg/dL High 40 - 60 [facility] Comment on above: Performed By: #### 2 16465 #### [facility],[address] [place] [address]64 Cholesterol in LDL [Mass/Vol] 8 mg/dL Normal 0 - 129 [facility] Comment on above: Performed By: #### 2 70255 #### [facility],[address] [place] [address]1386 Cholesterol.total/C holesterol in HDL [Mass ratio] 1.3 {ratio} Normal 0.0 - 5.0 [facility] Comment on above: Performed By: #### 2 33670 #### [address] [address] Lipid 1996 panel Normal [facility] Comment on above: Result Comment: LIPI D PROFILE Performed By: #### 2 07164 #### [place] [address] Triglyceride [Mass/Vol] 72 mg/dL Normal 0 - 150 [facility] Comment on above: Performed By: #### 2 07972 #### [address] [address] HALOPERIDOL [CCL]on 10-14-19 Haloperidol <0.6 Low 5.0-20.0 [facility] Comment on above: Result Comment: INTE RPRETIVE INFORMATION: Haloperidol Level Therapeutic Range: 5.0-20.0 ng/mL Toxic: Greater than 50 ng/mL The therapeutic range is based on serum pre-dose (trough) draw at steady-state concentration. Adverse effects may include drowsiness, blurred vision, tardive dyskinesia, tachycardia, hypotension and muscular rigidity. This test was developed and its performance characteristics determined by [facility]. It has not been cleared or approved by the [place] Food and Drug Administration. This test was performed in a CLIA certified laboratory and is intended for clinical purposes. Performed By: [facility] [address] [place] [address] Ship Runner: Willis Christine MD, PhD CLIA Number: [id number] [facility] [address] [place] [address] Jaison Lema III, M.D. [id number] Performed By: #### 2 71907 #### [facility],[address] [place] [address] 23332 Basic metabolic 2000 panelon 10-12-2024 Anion gap [Moles/Vol] 7 mmol/L Normal 5-16 [facility] Comment on above: Order Comment: Speci men Type: BLOOD SPECIMEN Ordering Facility: [facility] Address: [address] [place] [address] Performed By: #### 4 5066-8 #### [facility] CLIA [id number] [address] [place] [address] [place] Calcium [Mass/Vol] 9.4 mg/dL Normal 8.5-10.5 [facility] Comment on above: Order Comment: Speci men Type: BLOOD SPECIMEN Ordering Facility: [facility] Address: [address] [place] [address] Performed By: #### 4 5066-8 #### [facility] CLIA [id number] [address] [place] [address] [place] Chloride [Moles/Vol] 103 mmol/L Normal 98-107 [facility] Comment on above: Order Comment: Speci men Type: BLOOD SPECIMEN Ordering Facility: [facility] Address: [address] [place] [address] Performed By: #### 4 5066-8 #### [facility] CLIA [id number] [address] [place] [address] [place] CO2 [Moles/Vol] 24 mmol/L Normal 21-32 [facility] Comment on above: Order Comment: Speci men Type: BLOOD SPECIMEN Ordering Facility: [facility] Address: [address] [place] [address] Performed By: #### 4 5066-8 #### [facility] CLIA [id number] [address] [place] [address] [place] Creatinine [Mass/Vol] 0.83 mg/dL Normal 0.51-0.95 [facility] Comment on above: Order Comment: Speci men Type: BLOOD SPECIMEN Ordering Facility: [facility] Address: [address] [place] [address] Result Comment: Marissa ents receiving either N-Acetylcysteine (NAC) or Metamizole prior to venipuncture, may have falsely depressed results. Performed By: #### 4 5066-8 #### [facility] CLIA [id number] [address] [place] [address] [place] Creatinine and Glomerular filtration rate.predicted panel (S/P/Bld) 91 mL/min/1.73m??? Normal >=60 [facility] Comment on above: Order Comment: Dora finch Type: BLOOD SPECIMEN Ordering Facility: [facility] Address: [address] [place] [address] Result Comment: Zeny mated Glomerular Filtration Rate [...] GFR. Performed By: #### 4 5066-8 #### [facility] CLIA [id number] [address] [place] [address] [place] Glucose [Mass/Vol] 99 mg/dL Normal 70-100 [facility] Comment on above: Order Comment: Dora finch Type: BLOOD SPECIMEN Ordering Facility: [facility] Address: [address] [place] [address] Result Comment: The [place] Diabetes Association (ADA) provides guidance for cutoff [...] Standards of Medical Care in Diabetes 2016, [place] [employer]. Diabetes Care. 2016.39(Suppl 1). Results may be falsely elevated after the administration of Sulfapyridine. Results may be falsely depressed after the administration of Sulfasalazine. Performed By: #### 4 5066-8 #### [facility] CLIA [id number] [address] [place] [address] [place] Potassium [Moles/Vol] 3.6 mmol/L Normal 3.5-5.1 [facility] Comment on above: Order Comment: Speci men Type: BLOOD SPECIMEN Ordering Facility: [facility] Address: [address] [place] [address] Performed By: #### 4 5066-8 #### [facility] CLIA [id number] [address] [place] [address] [place] Sodium [Moles/Vol] 134 mmol/L Low 136-145 [facility] Comment on above: Order Comment: Speci men Type: BLOOD SPECIMEN Ordering Facility: [facility] Address: [address] [place] [address] Performed By: #### 4 5066-8 #### [facility] CLIA [id number] [address] [place] [address] [place] Urea nitrogen [Mass/Vol] 7 mg/dL Normal 7-26 [facility] Comment on above: Order Comment: Speci men Type: BLOOD SPECIMEN Ordering Facility: [facility] Address: [address] [place] [address] Performed By: #### 4 5066-8 #### [facility] CLIA [id number] [address] [place] [address] [place] CBC W Auto Differential pane l (Bld)on 10-12-2024 Basophils (Bld) [#/Vol] 0.05 10*3/uL Normal <0.11 [facility] Comment on above: Order Comment: Speci men Type: BLOOD SPECIMEN Ordering Facility: [facility] Address: [address] [place] [address] Performed By: #### 4 5066-8 #### [facility] CLIA [id number] [address] [place] [address] [place] Basophils/100 WBC (Bld) 0.7 % Normal [facility] Comment on above: Order Comment: Speci men Type: BLOOD SPECIMEN Ordering Facility: [facility] Address: [address] [place] [address] Performed By: #### 4 5066-8 #### [facility] CLIA [id number] [address] [place] [address] [place] Differential cell count method Nom (Bld) Auto Normal [facility] Comment on above: Order Comment: Speci men Type: BLOOD SPECIMEN Ordering Facility: [facility] Address: [address] [place] [address] Performed By: #### 4 5066-8 #### [facility] CLIA [id number] [address] [place] [address] [place] Eosinophils (Bld) [#/Vol] 0.14 10*3/uL Normal <0.46 [facility] Comment on above: Order Comment: Speci men Type: BLOOD SPECIMEN Ordering Facility: [facility] Address: [address] [place] [address] Performed By: #### 4 5066-8 #### [facility] CLIA [id number] [address] [place] [address] [place] Eosinophils/100 WBC (Bld) 1.9 % Normal [facility] Comment on above: Order Comment: Speci men Type: BLOOD SPECIMEN Ordering Facility: [facility] Address: [address] [place] [address] Performed By: #### 4 5066-8 #### [facility] CLIA [id number] [address] [place] [address] [place] Erythrocyte distribution width (RBC) [Ratio] 14.6 % Normal 11.5-15.0 [facility] Comment on above: Order Comment: Speci men Type: BLOOD SPECIMEN Ordering Facility: [facility] Address: [address] [place] [address] Performed By: #### 4 5066-8 #### [facility] CLIA [id number] [address] [place] [address] [place] Hematocrit (Bld) [Volume fraction] 33.2 % Low 36.0-46.0 [facility] Comment on above: Order Comment: Speci men Type: BLOOD SPECIMEN Ordering Facility: [facility] Address: [address] [place] [address] Performed By: #### 4 5066-8 #### [facility] CLIA [id number] [address] [place] [address] [place] Hemoglobin (Bld) [Mass/Vol] 10.1 g/dL Low 11.5-15.5 [facility] Comment on above: Order Comment: Speci men Type: BLOOD SPECIMEN Ordering Facility: [facility] Address: [address] [place] [address] Performed By: #### 4 5066-8 #### [facility] CLIA [id number] [address] [place] [address] [place] Immature granulocytes (Bld) [#/Vol] 0.04 10*3/uL Normal <0.10 [facility] Comment on above: Order Comment: Speci men Type: BLOOD SPECIMEN Ordering Facility: [facility] Address: [address] [place] [address] Performed By: #### 4 5066-8 #### [facility] CLIA [id number] [address] [place] [address] [place] Immature granulocytes/100 WBC (Bld) 0.5 % Normal [facility] Comment on above: Order Comment: Speci men Type: BLOOD SPECIMEN Ordering Facility: [facility] Address: [facility] [place] [address] Performed By: #### 4 5066-8 #### [facility] CLIA [id number] [address] [place] [address] [place] Lymphocytes (Bld) [#/Vol] 2.84 10*3/uL Normal 1.00-4.00 [facility] Comment on above: Order Comment: Speci men Type: BLOOD SPECIMEN Ordering Facility: [facility] Address: [facility] [place] [address] Performed By: #### 4 5066-8 #### [facility] CLIA [id number] [address] [place] [address] [place] Lymphocytes/100 WBC (Bld) 38.4 % Normal [facility] Comment on above: Order Comment: Speci men Type: BLOOD SPECIMEN Ordering Facility: [facility] Address: [address] [place] [address] Performed By: #### 4 5066-8 #### [facility] CLIA [id number] [address] [place] [address] OF [facility] MCH (RBC) [Entitic mass] 24.1 pg Low 26.0-34.0 [facility] Comment on above: Order Comment: Speci men Type: BLOOD SPECIMEN Ordering Facility: [facility] Address: [address] [place] [address] Performed By: #### 4 5066-8 #### [facility] CLIA [id number] [address] [place] [address] [place] MCHC (RBC) [Mass/Vol] 30.4 g/dL Low 30.5-36.0 [facility] Comment on above: Order Comment: Speci men Type: BLOOD SPECIMEN Ordering Facility: [facility] Address: [address] [place] [address] Performed By: #### 4 5066-8 #### [facility] CLIA [id number] [address] [place] [address] [place] MCV (RBC) [Entitic vol] 79.2 fL Low 80.0-100.0 [facility] Comment on above: Order Comment: Speci men Type: BLOOD SPECIMEN Ordering Facility: [facility] Address: [address] [place] [address] Performed By: #### 4 5066-8 #### [facility] CLIA [id number] [address] [place] [address] [place] Monocytes (Bld) [#/Vol] 0.68 10*3/uL Normal <0.87 [facility] Comment on above: Order Comment: Speci men Type: BLOOD SPECIMEN Ordering Facility: [facility] Address: [address] [place] [address] Performed By: #### 4 5066-8 #### [facility] CLIA [id number] [address] [place] [address] [place] Monocytes/100 WBC (Bld) 9.2 % Normal [facility] Comment on above: Order Comment: Speci men Type: BLOOD SPECIMEN Ordering Facility: [facility] Address: [address] [place] [address] Performed By: #### 4 5066-8 #### [facility] CLIA [id number] [address] [place] [address] [place] Neutrophils (Bld) [#/Vol] 3.65 10*3/uL Normal 1.45-7.50 [facility] Comment on above: Order Comment: Speci men Type: BLOOD SPECIMEN Ordering Facility: [facility] Address: [address] [place] [address] Performed By: #### 4 5066-8 #### [facility] CLIA [id number] [address] [place] [address] [place] Neutrophils/100 WBC (Bld) 49.3 % Normal [facility] Comment on above: Order Comment: Speci men Type: BLOOD SPECIMEN Ordering Facility: [facility] Address: [address] [place] [address] Performed By: #### 4 5066-8 #### [facility] CLIA [id number] [address] [place] [address] [place] Nucleated RBC (Bld) [#/Vol] 10*3/uL Normal <0.01 [facility] Comment on above: Order Comment: Speci men Type: BLOOD SPECIMEN Ordering Facility: [facility] Address: [address] [place] [address] Performed By: #### 4 5066-8 #### [facility] CLIA [id number] [address] [place] [address] [place] Nucleated RBC/100 WBC (Bld) [Ratio] 0.0 /100 WBC Normal [facility] Comment on above: Order Comment: Speci men Type: BLOOD SPECIMEN Ordering Facility: [facility] Address: [address] [place] [address] Performed By: #### 4 5066-8 #### [facility] CLIA [id number] [address] [place] [address] [place] Platelet mean volume (Bld) [Entitic vol] 8.9 fL Low 9.0-12.7 [facility] Comment on above: Order Comment: Speci men Type: BLOOD SPECIMEN Ordering Facility: [facility] Address: [address] [place] [address] Performed By: #### 4 5066-8 #### [facility] CLIA [id number] [address] [place] [address] [place] Platelets (Bld) [#/Vol] 344 10*3/uL Normal 150-400 [facility] Comment on above: Order Comment: Speci men Type: BLOOD SPECIMEN Ordering Facility: [facility] Address: [address] [place] [address] Performed By: #### 4 5066-8 #### [facility] CLIA [id number] [address] [place] [address] [place] RBC (Bld) [#/Vol] 4.19 10*6/uL Normal 3.90-5.20 [facility] Comment on above: Order Comment: Speci men Type: BLOOD SPECIMEN Ordering Facility: [facility] Address: [address] [place] [address] Performed By: #### 4 5066-8 #### [facility] CLIA [id number] [address] [place] [address] [place] WBC (Bld) [#/Vol] 7.40 10*3/uL Normal 3.70-11.00 [facility] Comment on above: Order Comment: Speci men Type: BLOOD SPECIMEN Ordering Facility: [facility] Address: [address] [place] [address] Performed By: #### 4 5066-8 #### [facility] CLIA [id number] [address] [place], [place] [address] [facility] [place] CNDSon 10-12-2024 CNDS HNO ID: [id number] Author: DIANDRA MARTINEZ MD Service: General Internal [...] Lovenox, status post colostomy who presented to [facility] ED for accidental overdose. Patient resides in a nursing facility, approximately 1 month ago was [facility]ostomy after developing bowel obstruction. During [...] PATIENT CONDITION AT DISCHARGE: Stable DISCHARGE DISPOSITION: [facility] Facility Physical Exam: General: Not in acute [...] escitalopram oxa (more content not included)... Normal [facility] Basic metabolic 2000 panelon 10-11-2024 Anion gap [Moles/Vol] 10 mmol/L Normal 5-16 [facility] Comment on above: Order Comment: Speci men Type: BLOOD SPECIMENOrdering Facility: [facility] Address: [address] [place] [address] Performed By: #### 2 4321-2 ####[facility] [id number] [place] [id number] [place] Calcium [Mass/Vol] 9.2 mg/dL Normal 8.5-10.5 [facility] Comment on above: Order Comment: Speci men Type: BLOOD SPECIMENOrdering Facility: [facility] Address: [address] [place] [address] Performed By: #### 2 4321-2 ####[facility] [id number] [place] [address] [place] Chloride [Moles/Vol] 101 mmol/L Normal 98-107 [facility] Comment on above: Order Comment: Speci men Type: BLOOD SPECIMENOrdering Facility: [facility] Address: [address] [place] [address] Performed By: #### 2 4321-2 ####[facility] [id number] [place] [address] [place] CO2 [Moles/Vol] 25 mmol/L Normal 21-32 [facility] Comment on above: Order Comment: Speci men Type: BLOOD SPECIMENOrdering Facility: [facility] Address: [address] [place] [address] Performed By: #### 2 4321-2 ####[facility] [id number] [place] [address] [place] Creatinine [Mass/Vol] 0.76 mg/dL Normal 0.51-0.95 [facility] Comment on above: Order Comment: Speci men Type: BLOOD SPECIMENOrdering Facility: [facility] Address: [address] [place] [address] Result Comment: Marissa ents receiving either N-Acetylcysteine (NAC) or Metamizole prior to venipuncture, may have falsely depressed results. Performed By: #### 2 4321-2 ####[facility] [id number] [address] [place] Creatinine and Glomerular filtration rate.predicted panel (S/P/Bld) 101 mL/min/1.73m??? Normal >=60 [facility] Comment on above: Order Comment: Dora finch Type: BLOOD SPECIMENOrdering Facility: [facility] Address: [address] [place] [address] Result Comment: Zeny mated Glomerular Filtration Rate [...] actual GFR. Performed By: #### 2 4321-2 ####[facility] [id number] [place] [address] [place] Glucose [Mass/Vol] 102 mg/dL High 70-100 [facility] Comment on above: Order Comment: Dora finch Type: BLOOD SPECIMENOrdering Facility: [facility] Address: [address] [place] [address] Result Comment: The [place] Diabetes Association (ADA) provides guidance for cutoff [...] Standards of Medical Care in Diabetes 2016, [place] Diabetes Association. Diabetes Care. 2016.39(Suppl 1). Results may be falsely elevated after the administration of Sulfapyridine. Results may be falsely depressed after the administration of Sulfasalazine. Performed By: #### 2 4321-2 ####[facility] [id number] [place] [address] [place] Potassium [Moles/Vol] 3.0 mmol/L Low 3.5-5.1 [facility] Comment on above: Order Comment: Speci men Type: BLOOD SPECIMENOrdering Facility: [facility] Address: [address] [place] [address] Performed By: #### 2 4321-2 ####[facility]IA [id number] [place] [address] [place] Sodium [Moles/Vol] 136 mmol/L Normal 136-145 [facility] Comment on above: Order Comment: Speci men Type: BLOOD SPECIMENOrdering Facility: [facility] Address: [address] [place] [address] Performed By: #### 2 4321-2 ####[facility]IA [id number] [place] [address] [place] Urea nitrogen [Mass/Vol] 6 mg/dL Low 7-26 [facility] Comment on above: Order Comment: Speci men Type: BLOOD SPECIMENOrdering Facility: [facility] Address: [address] [place] [address] Performed By: #### 2 4321-2 ####[facility] [id number] [place] [address] [place] CBC W Auto Differential pane l (Bld)on 10-11-2024 Basophils (Bld) [#/Vol] 0.03 10*3/uL Normal <0.11 [facility] Comment on above: Order Comment: Speci men Type: BLOOD SPECIMENOrdering Facility: [facility] Address: [address] [place] [address] Performed By: #### 5 7021-8 ####[facility]IA [id number] [address] [place] Basophils/100 WBC (Bld) 0.5 % Normal [facility] Comment on above: Order Comment: Speci men Type: BLOOD SPECIMENOrdering Facility: [facility] Address: [address] [place] [address] Performed By: #### 5 7021-8 ####[facility]IA [id number] [place] [id number] [place] Differential cell count method Nom (Bld) Auto Normal [facility] Comment on above: Order Comment: Speci men Type: BLOOD SPECIMENOrdering Facility: [facility] Address: [address] [place] [address] Performed By: #### 5 7021-8 ####[facility]IA [id number] [place] [address] [place] Eosinophils (Bld) [#/Vol] 0.09 10*3/uL Normal <0.46 [facility] Comment on above: Order Comment: Speci men Type: BLOOD SPECIMENOrdering Facility: [facility] Address: [address] [place] [address] Performed By: #### 5 7021-8 ####[facility]ORY[facility]IA [id number] [place] [address] [place] Eosinophils/100 WBC (Bld) 1.5 % Normal [facility] Comment on above: Order Comment: Speci men Type: BLOOD SPECIMENOrdering Facility: [facility] Address: [address] [place] [address] Performed By: #### 5 7021-8 ####[facility]ORY[facility]IA [id number] [place] [address] [place] Erythrocyte distribution width (RBC) [Ratio] 14.8 % Normal 11.5-15.0 [facility] Comment on above: Order Comment: Speci men Type: BLOOD SPECIMENOrdering Facility: [facility] Address: [address] [place] [address] Performed By: #### 5 7021-8 ####[facility]ORY[facility]IA [id number] [place] [address] [place] Hematocrit (Bld) [Volume fraction] 29.6 % Low 36.0-46.0 [facility] Comment on above: Order Comment: Speci men Type: BLOOD SPECIMENOrdering Facility: [facility] Address: [address] [place] [address] Performed By: #### 5 7021-8 ####[facility] [id number] [place] [id number] [place] Hemoglobin (Bld) [Mass/Vol] 9.2 g/dL Low 11.5-15.5 [facility] Comment on above: Order Comment: Speci men Type: BLOOD SPECIMENOrdering Facility: [facility] Address: [address] [place] [address] Performed By: #### 5 7021-8 ####[facility]IA [id number] [place] [address] [place] Immature granulocytes (Bld) [#/Vol] 0.03 10*3/uL Normal <0.10 [facility] Comment on above: Order Comment: Speci men Type: BLOOD SPECIMENOrdering Facility: [facility] Address: [address] [place] [address] Performed By: #### 5 7021-8 ####[facility]IA [id number] [place] [address] [place] Immature granulocytes/100 WBC (Bld) 0.5 % Normal [facility] Comment on above: Order Comment: Speci men Type: BLOOD SPECIMENOrdering Facility: [facility] Address: [address] [place] [address] Performed By: #### 5 7021-8 ####[facility]ORY[facility]IA [id number] [place] [address] [place] Lymphocytes (Bld) [#/Vol] 1.59 10*3/uL Normal 1.00-4.00 [facility] Comment on above: Order Comment: Speci men Type: BLOOD SPECIMENOrdering Facility: [facility] Address: [address] [place] [address] Performed By: #### 5 7021-8 ####[facility] [id number] [address] [place] Lymphocytes/100 WBC (Bld) 27.2 % Normal [facility] Comment on above: Order Comment: Speci men Type: BLOOD SPECIMENOrdering Facility: [facility] Address: [address] [place] [address] Performed By: #### 5 7021-8 ####[facility]IA [id number] [place] [address] [place] MCH (RBC) [Entitic mass] 24.2 pg Low 26.0-34.0 [facility] Comment on above: Order Comment: Speci men Type: BLOOD SPECIMENOrdering Facility: [facility] Address: [address] [place] [address] Performed By: #### 5 7021-8 ####[facility]ORY[facility]IA [id number] [place] [address] [place] MCHC (RBC) [Mass/Vol] 31.1 g/dL Normal 30.5-36.0 [facility] Comment on above: Order Comment: Speci men Type: BLOOD SPECIMENOrdering Facility: [facility] Address: [address] [place] [address] Performed By: #### 5 7021-8 ####[facility]ORYCLIA [id number] [address] [place] MCV (RBC) [Entitic vol] 77.9 fL Low 80.0-100.0 [facility] Comment on above: Order Comment: Speci men Type: BLOOD SPECIMENOrdering Facility: [facility] Address: [address] [place] [address] Performed By: #### 5 7021-8 ####[facility]ORYCLIA [id number] [address] [place] Monocytes (Bld) [#/Vol] 0.62 10*3/uL Normal <0.87 [facility] Comment on above: Order Comment: Speci men Type: BLOOD SPECIMENOrdering Facility: [facility] Address: [address] [place] [address] Performed By: #### 5 7021-8 ####[facility]ORY[facility]IA [id number] [place] [id number] [place] Monocytes/100 WBC (Bld) 10.6 % Normal [facility] Comment on above: Order Comment: Speci men Type: BLOOD SPECIMENOrdering Facility: [facility] Address: [address] [place] [address] Performed By: #### 5 7021-8 ####[facility]ORY[facility]IA [id number] [place] [address] [place] Neutrophils (Bld) [#/Vol] 3.48 10*3/uL Normal 1.45-7.50 [facility] Comment on above: Order Comment: Speci men Type: BLOOD SPECIMENOrdering Facility: [facility] Address: [address] [place] [address] Performed By: #### 5 7021-8 ####[facility]ORY[facility]IA [id number] [place] [address] [place] Neutrophils/100 WBC (Bld) 59.7 % Normal [facility] Comment on above: Order Comment: Speci men Type: BLOOD SPECIMENOrdering Facility: [facility] Address: [address] [place] [address] Performed By: #### 5 7021-8 ####[facility]ORY[facility]IA [id number] [place] [address] [place] Nucleated RBC (Bld) [#/Vol] 10*3/uL Normal <0.01 [facility] Comment on above: Order Comment: Speci men Type: BLOOD SPECIMENOrdering Facility: [facility] Address: [address] [place] [address] Performed By: #### 5 7021-8 ####[facility]ORY[facility]IA [id number] [place] [address] [place] Nucleated RBC/100 WBC (Bld) [Ratio] 0.0 /100 WBC Normal [facility] Comment on above: Order Comment: Speci men Type: BLOOD SPECIMENOrdering Facility: [facility] Address: [address] [place] [id number] Performed By: #### 5 7021-8 ####[facility]ORY[facility]IA [id number] [place] [id number] [place] Platelet mean volume (Bld) [Entitic vol] 9.3 fL Normal 9.0-12.7 [facility] Comment on above: Order Comment: Speci men Type: BLOOD SPECIMENOrdering Facility: [facility] Address: [address] [place] [id number] Performed By: #### 5 7021-8 ####[facility]ORYCLIA [id number] [place] [id number] [place] Platelets (Bld) [#/Vol] 362 10*3/uL Normal 150-400 [facility] Comment on above: Order Comment: Speci men Type: BLOOD SPECIMENOrdering Facility: [facility] Address: [address] [place] [address] Performed By: #### 5 7021-8 ####[facility]ORY[facility]IA [id number] [place] [id number] [place] RBC (Bld) [#/Vol] 3.80 10*6/uL Low 3.90-5.20 [facility] Comment on above: Order Comment: Speci men Type: BLOOD SPECIMENOrdering Facility: [facility] Address: [address] [place] [address] Performed By: #### 5 7021-8 ####[facility]ORYCLIA [id number] [place] [id number] [place] WBC (Bld) [#/Vol] 5.84 10*3/uL Normal 3.70-11.00 [facility] Comment on above: Order Comment: Speci men Type: BLOOD SPECIMENOrdering Facility: [facility] Address: [address] [place] [address] Performed By: #### 5 7021-8 ####[facility]ORYCLIA [id number] [place] [address] [facility] ALLIED HEALTHon 10-10-2024 ALLIED HEALTH HNO ID: [id number] Author: SANG CASE RN Service: Wound/Ostomy Author Type: Registered Nurse [...] treatment - Pressure Injury color:: Black Wound 10/09/24 181 Heel Right (Active) Properties Placement Date 10/09/24 [...] treatment - Pressure Injury color:: Black Wound 10/09/244 Toe D2, second Anterior;Right (Active) Properties Placement Date 10/09/24 Placement Time 1814 Location Toe D2, second Wound Location Orientation [...] Black Pt states she sees vascular at [facility] and will go there on the for another follow up. States she is using betadine for the toes/heel. 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 Right and left toe and Left Heel eschar. [place] with betadine daily. If you notice drainage anywhere, apply silver alginate and gauze-change daily. Maintain pressure prevention interventions-offload heels with pillows or Truevue boots.. Re-consult Wound Care if skin or wounds deteriorate further or if new problems arise. [facility] ALLIED HEALTH HNO ID: [id number] Author: SANG CASE RN Service: Wound/Ostomy Author Type: Registered Nurse [...] Type: Jejunostomy Size/Diameter: unable to visualize Location: LLQ Character of output: liquid per pt Emptying [...] with no sting skin prep pad. Apply Longview paste #95770 into any creases at 3 and 9 o'clock. Apply Longview #8815 adapt ring around the stoma. Apply pouching system: Pouching System: There are 2 pouches for the patient to try 1) #32602 Sensura Cory 2 piece Flex High Output ostomy pouch with soft outlet-included a clip in case the drainage is too thick for the outlet. In this case, just cut off the spout and use a clip to secure/empty. #37713 Convex light ostomy 2 piece flex with belt tabs 2) can also try #48695 JERONIMO Ultramax cut to fit large deep convex pouch Wear Time Goal: 3-4 days If additional ostomy supplies are needed, please call [employer] ([phone]) for above mentioned supplies. If supplies are unavailable in [employer], please secure chat [facility] Nurses or call extension [phone] to request more supplies. Normal [facility] Basic metabolic 2000 panelon 10-10-2024 Anion gap [Moles/Vol] 9 mmol/L Normal -16 [facility] Comment on above: Order Comment: Speci men Type: BLOOD SPECIMEN Ordering Facility: [facility] Address: [address] [place] [address] Performed By: #### 2 4321-2 #### [facility] CLIA [id number] [address] [place] [address] [place] Calcium [Mass/Vol] 9.2 mg/dL Normal 8.5-10.5 [facility] Comment on above: Order Comment: Speci men Type: BLOOD SPECIMEN Ordering Facility: [facility] Address: [address] [place] [address] Performed By: #### 2 4321-2 #### [facility] CLIA [id number] [address] [place] [address] [place] Chloride [Moles/Vol] 99 mmol/L Normal 98-107 [facility] Comment on above: Order Comment: Speci men Type: BLOOD SPECIMEN Ordering Facility: [facility] Address: [address] [place] [address] Performed By: #### 2 4321-2 #### [facility] CLIA [id number] [address] [place] [address] [place] CO2 [Moles/Vol] 22 mmol/L Normal 21-32 [facility] Comment on above: Order Comment: Speci men Type: BLOOD SPECIMEN Ordering Facility: [facility] Address: [address] [place] [address] Performed By: #### 2 4321-2 #### [facility] CLIA [id number] [address] [place] [address] [place] Creatinine [Mass/Vol] 0.76 mg/dL Normal 0.51-0.95 [facility] Comment on above: Order Comment: Dora finch Type: BLOOD SPECIMEN Ordering Facility: [facility] Address: [address] [place] [address] Result Comment: Marissa ents receiving either N-Acetylcysteine (NAC) or Metamizole prior to venipuncture, may have falsely depressed results. Performed By: #### 2 4321-2 #### [facility] CLIA [id number] [address] [place] [address] [place] Creatinine and Glomerular filtration rate.predicted panel (S/P/Bld) 101 mL/min/1.73m??? Normal >=60 [facility] Comment on above: Order Comment: Dora finch Type: BLOOD SPECIMEN Ordering Facility: [facility] Address: [address] [place] [address] Result Comment: Zeny mated Glomerular Filtration Rate [...] GFR. Performed By: #### 2 4321-2 #### [facility] CLIA [id number] [address] [place] [address] [place] Glucose [Mass/Vol] 88 mg/dL Normal 70-100 [facility] Comment on above: Order Comment: Dora finch Type: BLOOD SPECIMEN Ordering Facility: [facility] Address: [address] [place] [address] Result Comment: The [place] Diabetes Association (ADA) provides guidance for cutoff [...] Standards of Medical Care in Diabetes 2016, [place] [employer]. Diabetes Care. 2016.39(Suppl 1). Results may be falsely elevated after the administration of Sulfapyridine. Results may be falsely depressed after the administration of Sulfasalazine. Performed By: #### 2 4321-2 #### [facility] CLIA [id number] [address] [place] [address] [place] Potassium [Moles/Vol] 3.4 mmol/L Low 3.5-5.1 [facility] Comment on above: Order Comment: Dora finch Type: BLOOD SPECIMEN Ordering Facility: [facility] Address: [address] [place] [address] Performed By: #### 2 4321-2 #### [facility] CLIA [id number] [address] [place] [address] [place] Sodium [Moles/Vol] 130 mmol/L Low 136-145 [facility] Comment on above: Order Comment: Dora finch Type: BLOOD SPECIMEN [facility] [facility] Address: [address] [place] [address] Performed By: #### 2 4321-2 #### [facility] CLIA [id number] [address] [place] [address] [place] Urea nitrogen [Mass/Vol] 9 mg/dL Normal 7-26 [facility] Comment on above: Order Comment: Dora finch Type: BLOOD SPECIMEN Ordering Facility: [facility] Address: [address] [place] [address] Performed By: #### 2 4321-2 #### [facility] CLIA [id number] [address] [place] [address] [place] CBC W Auto Differential pane l (Bld)on 10-10-2024 Basophils (Bld) [#/Vol] 0.05 10*3/uL Normal <0.11 [facility] Comment on above: Order Comment: Speci men Type: BLOOD SPECIMEN Ordering Facility: [facility] Address: [facility] [place] [address] Performed By: #### 5 7021-8 #### [facility] CLIA [id number] [address] [place] [address] [place] Basophils/100 WBC (Bld) 0.7 % Normal [facility] Comment on above: Order Comment: Speci men Type: BLOOD SPECIMEN Ordering Facility: [facility] Address: [address] [place] [address] Performed By: #### 5 7021-8 #### [facility] CLIA [id number] [address] [place] [address] [place] Differential cell count method Nom (Bld) Auto Normal [facility] Comment on above: Order Comment: Speci men Type: BLOOD SPECIMEN Ordering Facility: [facility] Address: [address] [place] [address] Performed By: #### 5 7021-8 #### [facility] CLIA [id number] [address] [place] [address] [place] Eosinophils (Bld) [#/Vol] 0.07 10*3/uL Normal <0.46 [facility] Comment on above: Order Comment: Speci men Type: BLOOD SPECIMEN Ordering Facility: [facility] Address: [address] [place] [address] Performed By: #### 5 7021-8 #### [facility] CLIA [id number] [address] [place] [address] [place] Eosinophils/100 WBC (Bld) 1.0 % Normal [facility] Comment on above: Order Comment: Speci men Type: BLOOD SPECIMEN Ordering Facility: [facility] Address: [address] [place] [address] Performed By: #### 5 7021-8 #### [facility] CLIA [id number] [address] [place] [address] [place] Erythrocyte distribution width (RBC) [Ratio] 14.9 % Normal 11.5-15.0 [facility] Comment on above: Order Comment: Speci men Type: BLOOD SPECIMEN Ordering Facility: [facility] Address: [address] [place] [address] Performed By: #### 5 7021-8 #### [facility] CLIA [id number] [address] [place] [address] [place] Hematocrit (Bld) [Volume fraction] 33.3 % Low 36.0-46.0 [facility] Comment on above: Order Comment: Speci men Type: BLOOD SPECIMEN Ordering Facility: [facility] Address: [address] [place] [address] Performed By: #### 5 7021-8 #### [facility] CLIA [id number] [address] [place] [address] [place] Hemoglobin (Bld) [Mass/Vol] 10.4 g/dL Low 11.5-15.5 [facility] Comment on above: Order Comment: Speci men Type: BLOOD SPECIMEN Ordering Facility: [facility] Address: [address] [place] [address] Performed By: #### 5 7021-8 #### [facility] CLIA [id number] [address] [place] [address] [place] Immature granulocytes (Bld) [#/Vol] 10*3/uL Normal <0.10 [facility] Comment on above: Order Comment: Speci men Type: BLOOD SPECIMEN Ordering Facility: [facility] Address: [address] [place] [address] Performed By: #### 5 7021-8 #### [facility] CLIA [id number] [address] [place] [address] [place] Immature granulocytes/100 WBC (Bld) 0.3 % Normal [facility] Comment on above: Order Comment: Speci men Type: BLOOD SPECIMEN Ordering Facility: [facility] Address: [address] [place] [address] Performed By: #### 5 7021-8 #### [facility] CLIA [id number] [address] [place] [address] [place] Lymphocytes (Bld) [#/Vol] 2.17 10*3/uL Normal 1.00-4.00 [facility] Comment on above: Order Comment: Speci men Type: BLOOD SPECIMEN Ordering Facility: [facility] Address: [address] [place] [address] Performed By: #### 5 7021-8 #### [facility] CLIA [id number] [address] [place] [address] [place] Lymphocytes/100 WBC (Bld) 30.6 % Normal [facility] Comment on above: Order Comment: Speci men Type: BLOOD SPECIMEN Ordering Facility: [facility] Address: [address] [place] [address] Performed By: #### 5 7021-8 #### [facility] CLIA [id number] [address] [place] [address] [place] MCH (RBC) [Entitic mass] 24.3 pg Low 26.0-34.0 [facility] Comment on above: Order Comment: Speci men Type: BLOOD SPECIMEN Ordering Facility: [facility] Address: [address] [place] [address] Performed By: #### 5 7021-8 #### [facility] CLIA [id number] [address] [place] [address] [place] MCHC (RBC) [Mass/Vol] 31.2 g/dL Normal 30.5-36.0 [facility] Comment on above: Order Comment: Speci men Type: BLOOD SPECIMEN Ordering Facility: [facility] Address: [address] [place] [address] Performed By: #### 5 7021-8 #### [facility] CLIA [id number] [address] [place] [address] [place] MCV (RBC) [Entitic vol] 77.8 fL Low 80.0-100.0 [facility] Comment on above: Order Comment: Speci men Type: BLOOD SPECIMEN Ordering Facility: [facility] Address: [address] [place] [address] Performed By: #### 5 7021-8 #### [facility] CLIA [id number] [address] [place] [address] [place] Monocytes (Bld) [#/Vol] 0.77 10*3/uL Normal <0.87 [facility] Comment on above: Order Comment: Speci men Type: BLOOD SPECIMEN Ordering Facility: [facility] Address: [address] [place] [address] Performed By: #### 5 7021-8 #### [facility] CLIA [id number] [address] [place] [address] [place] Monocytes/100 WBC (Bld) 10.9 % Normal [facility] Comment on above: Order Comment: Speci men Type: BLOOD SPECIMEN Ordering Facility: [facility] Address: [address] [place] [address] Performed By: #### 5 7021-8 #### [facility] CLIA [id number] [address] [place] [address] [place] Neutrophils (Bld) [#/Vol] 4.01 10*3/uL Normal 1.45-7.50 [facility] Comment on above: Order Comment: Speci men Type: BLOOD SPECIMEN Ordering Facility: [facility] Address: [address] [place] [address] Performed By: #### 5 7021-8 #### [facility] CLIA [id number] [address] [place] [address] [place] Neutrophils/100 WBC (Bld) 56.5 % Normal [facility] Comment on above: Order Comment: Speci men Type: BLOOD SPECIMEN Ordering Facility: [facility] Address: [address] [place] [address] Performed By: #### 5 7021-8 #### [facility] CLIA [id number] [address] [place], [place] [id number] [place] Nucleated RBC (Bld) [#/Vol] 10*3/uL Normal <0.01 [facility] Comment on above: Order Comment: Speci men Type: BLOOD SPECIMEN Ordering Facility: [facility] Address: [address] [place] [id number] Performed By: #### 5 7021-8 #### [facility] CLIA [id number] [address] [place] [address] [place] Nucleated RBC/100 WBC (Bld) [Ratio] 0.0 /100 WBC Normal [facility] Comment on above: Order Comment: Speci men Type: BLOOD SPECIMEN Ordering Facility: [facility] Address: [address] [place] [address] Performed By: #### 5 7021-8 #### [facility] CLIA [id number] [address] [place] [address] [place] Platelet mean volume (Bld) [Entitic vol] 8.8 fL Low 9.0-12.7 [facility] Comment on above: Order Comment: Speci men Type: BLOOD SPECIMEN Ordering Facility: [facility] Address: [address] [place], [place] [address] Performed By: #### 5 7021-8 #### [facility] CLIA [id number] [address] [place] [address] [place] Platelets (Bld) [#/Vol] 380 10*3/uL Normal 150-400 [facility] Comment on above: Order Comment: Speci men Type: BLOOD SPECIMEN Ordering Facility: [facility] Address: [address] [place] [address] Performed By: #### 5 7021-8 #### [facility] CLIA [id number] [address] [place] [address] [place] RBC (Bld) [#/Vol] 4.28 10*6/uL Normal 3.90-5.20 [facility] Comment on above: Order Comment: Speci men Type: BLOOD SPECIMEN Ordering Facility: [facility] Address: [address] [place] [address] Performed By: #### 5 7021-8 #### [facility] CLIA [id number] [address] [place], [place] [address] [facility] [place] WBC (Bld) [#/Vol] 7.09 10*3/uL Normal 3.70-11.00 [facility] Comment on above: Order Comment: Dora finch Type: BLOOD SPECIMEN Ordering Facility: [facility] Address: [address] [place] [address] [place] [address] Performed By: #### 5 7021-8 #### [facility] CLIA [id number] [address] [place] [address] [facility] CONSULTon 10-10-2024 CONSULT HNO ID: [id number] Author: RAKESH DAVIS APRN.CNP Service: Gastroenterology Author [...] decrease to once daily until seen by felt cementer as an outpatient. Once her anticoagulation can be safely held, recommend upper endoscopy for further evaluation if needed. Patient's diet may be resumed. If she has any further issues of coffee-ground emesis or other signs of GI bleeding, please not hesitate to contact us. For now GI will sign off. Signature: Alexandria Benitez, Date: 10/10/2024 Time: 4:48 PM INITIAL CONSULT [...] extremity lateral fasciotomy closures 08/23/2024, presented to [facility] 10/09 as a transfer from [facility] for accidental overdose. Patient with noted recent [...] Narcan x2 doses. Patient was taken to [facility] ED and transferred to [facility] for GI evaluation. The patient is sitting [...] state on Loven (more content not included)... [facility] CONSULT PROGon 10-10-2024 CONSULT PROG HNO ID: [id number] Author: FREDRICK PERALTA RPh Service: Pharmacy Author Type: Pharmacist Type: [...] if there are questions. Fredrick Peralta RPh [facility] NUTRITIONon 10-10-2024 NUTRITION HNO ID: [id number] Author: KENYA SANTAMARIA RD Service: Nutrition Therapy [...] Weight Type: Current weight Estimated kilocalorie needs: [id number] Calorie Calculation Method: 20-25 kcals/kg Estimated protein [...] October 10, 2024 TIME: 2:23 PM Normal [facility] APTTon 10-09-2024 aPTT Coag (Bld) [Time] 30.8 s Normal 25.4 - 38.4 [facility] Comment on above: Performed By: #### 2 05743 #### [facility],[address] [place] [address] CBC + DIFFon 10-09-2024 Baso # 0.06 x10EE3/UL Normal 0.00 - 0.10 [facility] Comment on above: Performed By: #### 2 81093 #### [facility],[address] [place] [address] Basophils/100 WBC (Bld) 0.4 % Normal 0.0 - 2.0 [facility] Comment on above: Performed By: #### 2 40175 #### [facility],[address] [place], [place] [id number] CBC + DIFF Normal [facility] Comment on above: Result Comment: CBC- COMPLETE BLOOD COUNT Performed By: #### 2 17442 #### [place] [address],[place] [address] EO # 0.11 x10EE3/UL Normal 0.00 - 0.50 [facility] Comment on above: Performed By: #### 2 37757 #### [facility],[address] [place] [address] Eosinophils/100 WBC (Bld) 0.6 % Normal 0.0 - 7.0 [facility] Comment on above: Performed By: #### 2 16298 #### [facility],[address] [place], [place] [address] Erythrocyte distribution width (RBC) [Ratio] 16.5 % High 12.0 - 15.6 [facility] Comment on above: Performed By: #### 2 47408 #### [facility],[address] [place] [address] Hematocrit (Bld) [Volume fraction] 37.0 % Normal 34.0 - 46.0 [facility] Comment on above: Performed By: #### 2 37286 #### [facility],[address] [place], [place] [address] Hemoglobin (Bld) [Mass/Vol] 12.3 g/dL Normal 12.0 - 16.0 [facility] Comment on above: Performed By: #### 2 51799 #### [facility],[address] [place] [address] Lymph # 3.19 x10EE3/UL High 0.80 - 2.80 [facility] Comment on above: Performed By: #### 2 99932 #### [facility],[address] [place] [address] Lymphocytes/100 WBC (Bld) 18.0 % Low 20.0 - 45.0 [facility] Comment on above: Performed By: #### 2 40970 #### [place] [id number] MANUAL DIFF N/A Normal [facility] Comment on above: Performed By: #### 2 21052 #### [facility],[address] [place] [address] MCH (RBC) [Entitic mass] 25 pg Low 27 - 33 [facility] Comment on above: Performed By: #### 2 73997 #### [facility],[address] [place] [address] MCHC 33 X10 3 Normal 32 - 36 [facility] Comment on above: Performed By: #### 2 91849 #### [facility],[address] [place] [address] MCV (RBC) [Entitic vol] 76 fL Low 80 - 99 [facility] Comment on above: Performed By: #### 2 02896 #### [facility],[address] [place], [place] [id number] Iron # 1.03 x10EE3/UL High 0.20 - 1.00 [facility] Comment on above: Performed By: #### 2 34741 #### [facility],[address] [place] [address] MONOS % 5.8 % Normal 0.0 - 10.0 [facility] Comment on above: Performed By: #### 2 19333 #### [facility],[address] [place] [address] Morphology Stan (Bld) [Interp] N/A Normal [facility] Comment on above: Performed By: #### 2 88167 #### [facility],[address] [place] [address]188 Neut # 13.36 x10EE3/UL High 1.50 - 7.10 [facility] Comment on above: Performed By: #### 2 75913 #### [facility],[address] [place] [address] Neutrophils/100 WBC (Bld) 75.2 % Normal 46.0 - 76.0 [facility] Comment on above: Performed By: #### 2 77747 #### [facility],[address] [place] [address] PLATELET 657 x10EE3/UL High 150 - 450 [facility] Comment on above: Performed By: #### 2 46539 #### [facility],[address] [place] [address] Platelet mean volume (Bld) [Entitic vol] 7.7 fL Normal 6.6 - 10.5 [facility] Comment on above: Result Comment: AUTO MATED DIFFERENTIAL Performed By: #### 2 75673 #### [facility],[address] [place] [address] RBC 4.85 x 10EE6/UL Normal 4.10 - 5.30 [facility] Comment on above: Performed By: #### 2 87936 #### [facility],[address] [place] [address] WBC 17.8 x 10EE3/UL High 4.5 - 10.8 [facility] Comment on above: Performed By: #### 2 46878 #### [facility],[address] [place] [address] CMP with eGFRon 10-09-2024 AGE 39 years Normal [facility] Comment on above: Performed By: #### 2 50544 #### [facility],[address] [place] [address] Albumin [Mass/Vol] 3.1 g/dL Low 3.4 - 5.0 [facility] Comment on above: Performed By: #### 2 86095 #### [facility],[address] [place], [place] [id number] Albumin/Globulin [Mass ratio] 0.5 {ratio} Low 0.9 - 1.6 [facility] Comment on above: Performed By: #### 2 05196 #### [facility],[address] [place] [address] ALK PHOS 175 U/L High 46 - 116 [facility] Comment on above: Performed By: #### 2 36331 #### [facility],[address] [place], [place] [address] ALT [Catalytic activity/Vol] 65 U/L High 16 - 63 [facility] Comment on above: Performed By: #### 2 75890 #### [facility],[address] [place] [address] Anion gap [Moles/Vol] 18 mmol/L Normal 10 - 20 [facility] Comment on above: Performed By: #### 2 44753 #### [facility],[address] [place] [address] AST [Catalytic activity/Vol] 23 U/L Normal 13 - 39 [facility] Comment on above: Performed By: #### 2 65614 #### [facility],[address] [place] [address] B/C RATIO 12 ratio Normal 0 - 30 [facility] Comment on above: Performed By: #### 2 86882 #### [facility],[address] [place] [address] Bilirubin [Mass/Vol] 0.7 mg/dL Normal 0.2 - 1.0 [facility] Comment on above: Performed By: #### 2 00006 #### [facility],[address] [place], [place] [id number] Calcium [Mass/Vol] 9.7 mg/dL Normal 8.5 - 10.1 [facility] Comment on above: Performed By: #### 2 48175 #### [facility],[address] [place], [place] [address] Chloride [Moles/Vol] 94 mmol/L Low 98 - 107 [facility] Comment on above: Performed By: #### 2 33334 #### [facility],[address] [place], [place] [id number] CMP with eGFR Normal [facility] Comment on above: Result Comment: COMP REHENSIVE METABOLIC PANEL Performed By: #### 2 39351 #### [facility],[address] [place], [place] [address] CO2 [Moles/Vol] 25.4 mmol/L Normal 21.0 - 32.0 [facility] Comment on above: Performed By: #### 2 47751 #### [facility],[address] [place] [address] Creatinine [Mass/Vol] 1.72 mg/dL High 0.55 - 1.02 [facility] Comment on above: Performed By: #### 2 16401 #### [facility],[address] [place] [address] eGFR 33 ML/MINUTE Low 60 - 999 [facility] Comment on above: Performed By: #### 2 90174 #### [facility],[address] [place], [place] [address] eGFR(AA) 40 ML/MINUTE Low 60 - 999 [facility] Comment on above: Result Comment: ACCO RDING TO THE NATIONAL KIDNEY DISEASE EDUCATION PROGRAM(NKDE), A NORMAL eGFR IS A VALUE GREATER THAN OR EQUAL TO 60 ML/MIN/1.73 SQ METERS. CHRONIC KIDNEY DISEASE: <60mL/MIN/1.73 SQ METERS KIDNEY FAILURE: <15mL/MIN/1.73 SQ METERS THIS TEST SHOULD ONLY BE USED FOR PATIENTS 18 YEARS OF AGE AND OLDER. Performed By: #### 2 95350 #### [facility],[address] [place] [address] Globulin (S) [Mass/Vol] 6.6 g/dL High 1.5 - 3.8 [facility] Comment on above: Performed By: #### 2 16304 #### [facility],[address] [place], [place] [address] Glucose [Mass/Vol] 245 mg/dL High 74 - 106 [facility] Comment on above: Performed By: #### 2 16282 #### [facility],[address] [place] [address]64 Potassium [Moles/Vol] 2.3 mmol/L Critically low 3.5 - 5.1 [facility] Comment on above: Result Comment: { CA LLED TO NATHANAEL REDMOND BY LMM @ 0937 { READ BACK BY NATHANAEL REDMOND RA 0937 Performed By: #### 2 88924 #### [facility],[address] [place], [place] [address] Protein [Mass/Vol] 9.7 g/dL High 6.4 - 8.2 [facility] Comment on above: Performed By: #### 2 63912 #### [facility],[address] [place] [address] Sodium [Moles/Vol] 135 mmol/L Low 136 - 145 [facility] Comment on above: Performed By: #### 2 17371 #### [facility],[address] [place], [place] [address] Urea nitrogen [Mass/Vol] 21 mg/dL High 7 - 18 [facility] Comment on above: Performed By: #### 2 35007 #### [facility],[address] [place] [address] CONSULT PROGon 10-09-2024 CONSULT PROG HNO ID: [id number] Author: MORENA HAWKINS RPh Service: Pharmacy Author [...] (H) Vancomycin Levels: Vancomycin (ug/mL) Date/Time Value 10/09/20242039 11.1 08/22/20242024 12.7 Morena Hawkins RPh [facility] CT ABDOMEN/PELVIS WO 10-09 CT ABDOMEN/PELVIS [place] [address] Patient: DALY EVANS Phone#: : 1985 Age: 39 Gender: F Pt. Type: ER Account: [id number] Location: 052 Ordering: FARZANEH AVILEZ Exam Date: 10/09/2024/10:19 Family Phys: MAGGIE PUTNAM Charge Code: [id number] Physician: Lagrange Order #: [id number] Dose#: 13.40 mGy PROCEDURE: CT ABDOMEN/PELVIS WITHOUT CONTRAST COMPARISON: [facility], CT, ABDOMEN/PELVIS W CON, 09/17/2024, 5:25. INDICATIONS: [...] 39 Gender: F Pt. Type: ER Account: [id number] Location: 052 Ordering: FARZANEH AVILEZ Exam Date: 10/09/2024/10:19 Family Phys: MAGGIE PUTNAM Charge Code: 438666 Physician: Lagrange Order #: [id number] Dose#: 13.40 mGy 2. No appreciable acute intra-abdominal or pelvic abnormality within the limits of a noncontrast exam. Dictated by: Alicia Maya MD on 10/09/2024 at 10:49 Approved by: Alicia Maya MD on 10/09/2024 at 10:57 Normal [facility] Creatinine + eGFR Pnl SerPlB ldon 10-09-2024 Creatinine and Glomerular filtration rate.predicted panel (S/P/Bld) 74 mL/min/1.73m??? Normal >=60 [facility] Comment on above: Order Comment: Dora finch Type: BLOOD SPECIMEN Ordering Facility: [facility] Address: [address] [place] [address] Result Comment: Zeny mated Glomerular Filtration Rate [...] GFR. Performed By: #### 4 5066-8 #### [facility] CLIA [id number] [address] [place] [address] Creatinine and Glomerular fi ltration rate.predicted panel (S/P/Bld)on 10-09-2024 Creatinine [Mass/Vol] 0.99 mg/dL High 0.51-0.95 [facility] Comment on above: Order Comment: Dora finch Type: BLOOD SPECIMEN Ordering Facility: [facility] Address: [address] [place] [address] Result Comment: Marissa ents receiving either N-Acetylcysteine (NAC) or Metamizole prior to venipuncture, may have falsely depressed results. Performed By: #### 4 5066-8 #### [facility] CLIA [id number] [address] [place] [address] [place] ED MED ADMINISTRATION DETAIL on 10-09-2024 ED MED ADMINISTRATION DETAIL [employer] Medication Administration Record [address] [place] [address] [id number] 10/09/2024 Patient: DALY EVANS Sex: Female : 1985 Age: 39y MEASUREMENTS: Wt: 90.7 kg, Ht/Jean-Paul: 67.0 in, BMI: 31.32 ALLERGIES: [place] Medication Ordered Medication Administration Date/Time Zofran IVP [...] IV site checked: no pain, redness, Ariella Santamaria, R.N. or swelling. IV flushed thoroughly pre-medication administration. Stopped Information reviewed with patient including reason for taking this 10:21 10/09/2024 medication. - 08:59 Ariella Santamaria R.N. Ariella Santamaria R.N. Scanned 10:10/09 Medication Discontinued: bag #1 infused. Total amount infused: 1000 mL. IV patency established. IV site checked: no pain, redness, or swelling. IV flushed thoroughly post-medication administration. - 10:31 Ariella Santamaria R.N. 1 of 4 [employer] Medication Ordered Medication Administration Date/Time Reglan IVP [...] % swelling. IV flushed thoroughly pre-medication administration. 13:20 10/09/2024 100 mL (NOW x1) Information reviewed with [...] IV site checked: no pain, redness, Ariella Santamaria, R.N. or swelling. IV flushed thoroughly pre-medication administration. Stopped Information reviewed with patient including reason for taking this 13:35 10/09/2024 medication. - 12:23 Ariella Santamaria R.N. Ariella Santamaria, R.N. Scanned 13:10/09 Medication Discontinued: bag #2 infused. Total amount infused: 1000 mL. IV patency established. IV site checked: no pain, redness, or swelling. IV flushed thoroughly post-medication administration. - 13:35 Ariella Santamaria R.N. 2 of 4 [employer] Medication Ordered Medication Administration Date/Time Haloperidol IVP 2 12:20 10/09 Haloperidol IVP 2 mg given via Site# 2. Allergies Given mg (NOW x1) verified and confirmed 5 rights. IV patency established. IV site 12:20 10/09/2024 checked: no pain, redness, or swelling. IV [...] wasted. - 13:29 Shameka Sheehan R.N. Scanned 13:25 10/09 Medication Co-sign: Verified dosage. - 13:29 Johnathan (more content not included)... Normal [facility] ED NURSES CLINICAL NOTEon ED NURSES CLINICAL NOTE Nurse Narrative Nurse Clinical Narrative [address] [address] [id number] 10/09/2024 08:13:00 Patient: DALY EVANS Sex: Female : 1985 Age: 39y Disposition: Transfer to [facility] Disposition Decision Time: 12:52 10/09/2024 Departure Time: 15:44 10/09/2024 TRIAGE Arrived by EMS. Historian: (snf records and patient). Primary physician (Boland). Triage time: 08:21 10/09/2024. Acuity: LEVEL 2. Chief Complaint: ACCIDENTAL INGESTION (Pt received 115mg of methadone from a nurse at the snf that was not prescribed to her.). This [...] subcutaneous syringe: twice a day. (give per IN MAR dose of 0.95ml) -- 09:10/09/24 CHARLY [...] through eRx -- 09:10/09/24 CHARLY Vidales R.N. olanzapine 20 mg tablet -- 09:10/09/24 CHARLY Vidales R.N.Updated through eRx -- 09:10/09/24 CHARLY Vidales R.N. loperamide 2 mg capsule -- 09:10/09/24 CHARLY Vidales R.N.Updated through eRx -- 09:10/09/24 CHARLY Vidales R.N. Lantus Solostar U-100 Insulin 100 unit/mL (3 mL) subcutaneous pen -- 09:10/09/24 CHARLY Vidales R.N.Updated through eRx -- 09:10/09/24 CHARLY Vidales R.N. gabapentin 600 mg tablet -- 09:10/09/24 CHARLY Vidales R.N.Updated through eRx -- 09:10/09/24 CHARLY Vidales R.N. ferrous sulfate 325 mg (65 mg iron) tablet -- 09:10/09/24 CHARLY Vidales R.N.Updated through eRx -- 09:10/09/24 CHARLY Vidales R.N. escitalopram 20 mg tablet -- 09:10/09/24 CHARLY Vidales R.N.Updated through eRx -- 09:10/09/24 CHARLY Vidales R.N. Glucose Gel 40 % [...] 1 tablet once a day. -- 09:10/09/24 EDT Jessica Vidales, R.N. olanzapine 20 mg tablet: 1 tablet once a day. -- 09:30 10/09/24 CHARLY Vidales R.N. magnesium 400 mg (as magnesium oxide) tablet: 1 tablet once a day. -- 09:10/09/24 CHARLY Vidales R.N. loperamide 2 mg capsule: 1 capsule four times a day. (before meals and at bedtime) -- 09:30 10/09/24 CHARLY Vidales R.N. Lantus Solostar U-100 Insulin [...] tablet: 1 tablet once a day. -- 09:30 10/09/24 CHARLY Vidales R.N. 2 of 8 Nurse Narrative Allergies: [place] -- 08:31 10/09/24 CHARLY Vidales R.N. Home Medications/Allergy Information Source: patient, snf record -- 08:28 10/09/24 CHARLY Vidales R.N. [...] of the lower ext -- 09:01 10/09/24 EDT Jessica Vidales R.N. Iron deficiency anemia -- 09:02 (more content not included)... Normal [facility] ED ORDER SHEET (CPOE ONLY)on 10-09-2024 ED ORDER SHEET (CPOE ONLY) Order Sheet Order Sheet [id number] [place] [address] [phone] 10/09/2024 Patient: DALY EVANS Sex: Female : 1985 Age: 39y MEASUREMENTS: Wt: 90.7 kg, Ht/Jean-Paul: 67.0 in, BMI: 31.32 ALLERGIES: [place] MEDICATION/IV/DRIP/FLUID ORDERS Order Description Priority Entered Acknowledged Completed Zofran IVP4 mg (NOW x1) 08:23 10/09/2024 08:40 08:55 Farzaneh Avilez D.O. 10/09/2024 10/09/2024 Ariella Sheehan, HarveyN. R.N. IV NS 0.9 %1000 mL at 999 08:32 10/09/2024 08:40 08:59 mL/hr (NOW x1) Farzaneh Avilez D.O. 10/09/2024 10/09/2024 Ariella Sheehan R.N. R.NPriscila Reglan IVP10 mg (NOW x1) 09:45 10/09/2024 09:46 09:50 Farzaneh Avilez D.O. 10/09/2024 10/09/2024 Ariella Sheehan R.N. R.N. Reason for ordering with alerts: Benefits outweigh risks --09:45 10/09/2024 Farzaneh Avilez D.O. Pantoprazole (Protonix) 80 mg 10:12 10/09/2024 10:30 12:24 LOAD IVPB80 mg diluted in Farzaneh Avilez D.O. 10/09/2024 10/09/2024 sodium chloride IVPB 0.9 % 100 Ariella Sheehan, 1 of 5 Order Sheet mL (NOW x1) R.N. R.N. Pantoprazole (Protonix) 80 mg 12:10 10/09/2024 12:24 LOAD IVPB80 mg diluted in Ariella Santamaria, R.N. 10/09/2024 sodium chloride IVPB 0.9 % 100 Ariella Santamaria, mL (NOW x1) R.N. IV NS 0.9 %1000 mL at 999 10:28 10/09/2024 10:30 12:23 mL/hr (NOW x1) Farzaneh Avilez D.O. 10/09/2024 10/09/2024 Ariella Sheehan, HarveyN. R.N. Reason for ordering with alerts: Clinical consideration given --10:28 10/09/2024 Farzaneh Avilez D.O. Haloperidol IVP2 mg (NOW x1) 10:29 10/09/2024 10:30 12:21 Farzaneh Avilez D.O. 10/09/2024 10/09/2024 Ariella Sheehan R.N. R.N. Reason for ordering with alerts: Clinical consideration given --10:10/09/2024 Farzaneh Avilez D.O. Haloperidol IVP2 mg (NOW x1) 12:08 10/09/2024 12:24 Ariella Santamaria R.N. 10/09/2024 Ariella Santamaria R.NPriscila Reason for ordering with alerts: Clinical consideration given --10:10/09/2024 Farzaneh Avilez D.O. MORPHine IVP2 mg (NOW [...] x1, HIGH ALERT Ariella Sheehan, MEDICATION) R.N. R.NPriscila potassium 14:42 10/09/2024 14:49 15:19 chloride(K-Philip)20mEq/100m l Farzaneh Avilez D.O. 10/09/2024 10/09/2024 IVPB [id number] mEq at 50 mL/hr Ariella Sheehan, (NOW x1, HIGH ALERT R.N. R.N. MEDICATION) potassium 14:42 10/09/2024 Cancelled: Patient Off Unit chloride(K-Philip)20mEq/100m l Farzaneh Avilez D.O. 16:22 EDT Ariella Santamaria R.N. IVPB [id number] mEq at 50 mL/hr (NOW x1, HIGH ALERT MEDICATION) Reason for ordering with alerts: Clinical consideration given --14:42 10/09/2024 Farzaneh Avilez D.O. LAB ORDERS Order Description Priority Entered Acknowledged Collected Completed EKG - ED Stat Stat 08:22 10/09/2024 08:40 10/09/2024 09:12 10/09/2024 Ariella Harrington Natalie Yoder, D.O. R.NPriscila RPriscilaNPriscila CBC w Diff Stat Stat 08:22 10/09/2024 08:40 10/09/2024 08:59 10/09/2024 Ariella Harrington Natalie Yoder, D.O. R.N. R.NPriscila Troponin-I Stat Stat 08:22 10/09/2024 08:40 10/09/2024 08:59 10/09/2024 3 of 5 Order Sheet Ariella Harrington Natalie Yoder, D.O. R.N. R.N. CMP Stat Stat 08:22 10/09/2024 08:40 10/09/2024 08:59 10/09/2024 Ariella Harrington Natalie Yoder, D.O. R.NPrisclia R.N. Magnesium Stat Stat 09:42 10/09/2024 09:44 10/09/2024 12:24 10/09/2024 Ariella Harrington Natalie Yoder, D.O. R.N. R.N. Occult Blood, Gastric Stat 09:43 10/09/2024 09:44 10/09/2024 12:24 10/09/2024 Stat Ariella Harrington Natalie Yoder, D.O. R.N. RPriscilaNPriscila PT with INR Stat Stat 10:13 10/09/2024 10:30 10/09/2024 12:24 10/09/2024 Ariella Harrington Natalie Yoder, D.O. R.N. R.N. PTT Stat Stat 10:14 10/09/2024 10:30 10/09/2024 12:24 10/09/2024 Ariella Harrington Natalie Yoder, D.O. R.NPriscila RPriscilaNPriscila Haloperidol [CCL] Stat Stat 12:18 10/09/2024 12:24 10/09/2024 12:24 10/09/2024 Ariella Harrington, Na (more content not included)... Normal [facility] ED PHYSICIAN CLINICAL REPORT on 10-09-2024 ED PHYSICIAN CLINICAL REPORT Narrative Physician Clinical Narrative [address] [address] [phone] 10/09/2024 08:13:00 Patient: DALY EVANS Sex: Female : 1985 Age: 39y Disposition: Transfer to [facility] Disposition Decision Time: 12:52 10/09/2024 Measurements Wt: [...] subcutaneous syringe: twice a day. (give per IN MAR dose of 0.95ml) escitalopram 20 mg [...] piggyback: 1500 mg twice a day. Allergies: [place] Home Medications/Allergy Information Source: patient, snf record - Jessica Vidales R.N., 10/09/2024 08:28 [...] 450 Fi (more content not included)... Normal [facility] ED SUPER BILLon 10-09-2024 ED SUPER BILL [facility] [address] [place] [address] [phone] 10/09/2024 Patient: DALY EVANS Sex: Female : 1985 Age: 39y Facility Professional Category Item Description Code Code Quantity Fee Total Nurse/E/M EMERGENCY 708653 1 $0.00 $0.00 DEPT VISIT HIGH SEVERITYFUNCJ (37189-86) Nurse/IV/IM/Infusions Drip/IVPB initial 940756 1 $0.00 $0.00 (63288) Nurse/IV/IM/Infusions Drip/IVPB seq 232446 2 $0.00 $0.00 (24993) Nurse/IV/IM/Infusions Hydration 411736 1 $0.00 $0.00 additional hour (22887) Nurse/IV/IM/Infusions IVP additional 772475 2 $0.00 $0.00 push (15027) Nurse/IV/IM/Infusions IVP initial (62980) 719140 1 $0.00 $0.00 Grand $0.00 Total Providers Farzaneh Avilez D.O. 1 of 2 [facility] Chief Complaint DRUG OVERDOSE. Principal Diagnosis Accidental overdose with methadone. Occult and minor GI bleed. Moderate acute renal failure. Hyperglycemia. Hypokalemia. Hypomagnesemia. ICD-10 Codes T40.3X1A: Poisoning by methadone, accidental (unintentional), initial encounter N19: Unspecified kidney failure N17.9: Acute kidney failure, unspecified E83.42: Hypomagnesemia E87.6: Hypokalemia K52.9: Noninfective gastroenteritis and colitis, unspecified R73.9: Hyperglycemia, unspecified K92.2: Gastrointestinal hemorrhage, unspecified 2 of 2 Normal [facility] ED VISIT SUMMARYon ED VISIT SUMMARY Visit Overview Visit Overview [facility] [address] [place] [address] [phone] 10/09/2024 Patient: DALY EVANS Sex: Female : 1985 Age: 39y 10/09/2024 04:30 PM EDT ED Arrival:08:13 10/09/2024 EDT Status:not Recent Travel:no Language:eng Adv Directive: Isolation Status: Ethnicity:N Fall Risk:risk Infectious Disease Exposure:no Measurements:5'7 / 170.2 Self-Harm Status:risk Sepsis Screen:negative cm 200.0 lb / 90.7 kg Chief Complaint:ACCIDENTAL INGESTION, (Boland), (n/v; dizziness), and (Pt received 115mg of methadone from a nurse at the snf that was not prescribed to her. ) ALLERGIES [place] HOME MEDICATIONS acetaminophen 325 mg chewable tablet: 1 tablet every six hours as needed. aspirin 81 mg chewable tablet: 1 tablet once a day. atorvastatin 40 mg tablet: 1 tablet once a day. 1 of 4 Visit Overview enoxaparin 100 mg/mL subcutaneous syringe: twice a day. (give per IN MAR dose of 0.95ml) escitalopram 20 mg [...] abd surgery with colostomy Carpal Tunnel Surgery 2 of 4 Visit Overview Cholecystectomy SOCIAL HISTORY Smoking status: [...] Temp 08:31 10/09/24 Temp 15:28 10/09/24 BP 08:10/09/24 BP 15:10/09/24 99/80 HR 08:10/09/24 111 HR 15:10/09/24 94 3 of 4 Visit Overview First Vitals Last Vitals RR 08:10/09/24 RR 15:28 10/09/24 O2 Sat 08:10/09/24 96% O2 Sat 15:10/09/24 Pain 08:31 10/09/24 Pain 15:28 10/09/24 ETCO2 08:31 10/09/24 ETCO2 15:28 10/09/24 GCS 08:31 10/09/24 GCS [...] MINOR GI BLEED 4 of 4 Normal [facility] ED VITALS FLOW SHEETon 10-09 ED VITALS FLOW SHEET Vitals Vital Sign Flow Sheet [facility] [address] [place] [address] [phone] 10/09/2024 Patient: DALY EVANS Sex: Female : [...] 10/09/2024 111 96% 4 of 4 Normal [facility] HISTORY PHYSICALon HISTORY PHYSICAL HNO ID: [id number] Author: ROSA MARIA BULLOCK MD Service: General Internal Medicine Author Type: Physician Type: H&P Filed: 10/09/2024 17:16 Note Text: DEPARTMENT OF HOSPITAL MEDICINE HISTORY AND PHYSICAL EXAM SERVICE DATE: 10/09/2024 SERVICE TIME: 5:06 PM Primary Care Physician: Fredrick L Boland, DO Subjective CHIEF COMPLAINT: Accidental overdose HPI: This is a 39 year old female with past medical history of bipolar 2, panic disorder, ELIJAH, obesity, DVT on Lovenox, status post colostomy who presented to [facility] ED for accidental overdose. Patient resides in a nursing facility, approximately 1 month ago was [facility] after developing bowel obstruction. During [...] Date Attempted suicide (HCC) polysubstance Bipolar depression ([facility]) [facility] Gestational diabetes mellitus in ([facility]) Impaired fasting blood sugar 06/2015 a1c 5.7% [...] Patient ta (more content not included)... Normal [facility] MAGNESIUMon 10-09-2024 Magnesium [Mass/Vol] 1.5 mg/dL Low 1.8 - 2.4 [facility] Comment on above: Performed By: #### 2 56339 #### [facility],[address] [place] [address] 32879 OCCULT BLOOD GASTRICon 10-09 OCCULT BLOOD GASTRIC Normal [facility] Comment on above: Result Comment: { OC CULT BLOOD POSITIVE (NEGATIVE ) { SPECIMEN GASTRIC ASPIRATE Performed By: #### 2 54491 #### [facility],[address] [place] [address] 32583 pH (Bld) 4 [pH] Normal [facility] Comment on above: Performed By: #### 2 01400 #### [facility],[address] [place] [address]696 PROTHROMBIN TIME AND INRon 0 10-09-2024 INR Coag (PPP) [Relative time] 1.3 {INR} High 0.8 - 1.2 [facility] Comment on above: Result Comment: T [...] MECHANICAL HEART VALVES Performed By: #### 2 04710 #### [facility],[address] [place] [address] 960[address] PROTHROMBIN TIME AND INR Normal [facility] Comment on above: Result Comment: PROT HROMBIN TIME AND INR Performed By: #### 2 01675 #### [facility],[address] [place] [address]40 PT-COUMADIN 14.2 sec High 9.3 - 14.1 [facility] Comment on above: Performed By: #### 2 49281 #### [facility],[address] [place] [address] 30717 TROPONINon 10-09-2024 HS TROPONIN 6.2 pg/mL Normal 0.0 - 51.4 [facility] Comment on above: Performed By: #### 2 29633 #### [facility],[address] [facility] [address] US KIDNEY/BLADDERon 10-10-19 25 US KIDNEY/BLADDER * * *Final Report* * * DATE OF EXAM: Oct 09 2024 7:04PM [facility] 1055 - US KIDNEY/BLADDER / PROCEDURE REASON: [...] the bladder lumen; please correlate with urinalysis. [facility]: NANCY Transcribe Date/Time: Oct 10 2024 4:59A Dictated by : CHRISTIAN LEE MD This examination was interpreted and the report reviewed and electronically signed by: CHRISTIAN LEE MD on Oct 10 2024 5:02AM EST [id number] Normal [facility] Vancomycin [place] SerPl-mCncon 10-09-2024 Vancomycin random [Mass/Vol] 11.1 ug/mL Normal 10.0-25.0 [facility] Comment on above: Order Comment: Speci men Type: BLOOD SPECIMEN Ordering Facility: [facility] Address: [facility] [place] [address] Result Comment: Refe rence ranges and high/low indicator flags are provided as general guidelines only. The treating physician must determine appropriate target levels/dosing based on the specific clinical situation. Performed By: #### 4 091-5 #### [facility] CLIA [id number] [facility] [place] [address] [place] CBC + DIFFon 10-04-2024 Baso # 0.02 x10EE3/UL Normal 0.00 - 0.10 [facility] Comment on above: Performed By: #### 2 92984 #### [facility],[address] [place] [address] Basophils/100 WBC (Bld) 0.3 % Normal 0.0 - 2.0 [facility] Comment on above: Performed By: #### 2 08385 #### [facility],[address] [place] [address] 15156 CBC + DIFF Normal [facility] Comment on above: Result Comment: CBC- COMPLETE BLOOD COUNT Performed By: #### 2 11406 #### [facility],[address] [place] [address] EO # 0.16 x10EE3/UL Normal 0.00 - 0.50 [facility] Comment on above: Performed By: #### 2 92023 #### [facility],[address] [place] [address] 47985 Eosinophils/100 WBC (Bld) 2.7 % Normal 0.0 - 7.0 [facility] Comment on above: Performed By: #### 2 17708 #### [facility],[address] [place] [address]96[address] Erythrocyte distribution width (RBC) [Ratio] 15.9 % High 12.0 - 15.6 [facility] Comment on above: Performed By: #### 2 18398 #### [facility],[address] [place] [address]72[address] Hematocrit (Bld) [Volume fraction] 29.2 % Low 34.0 - 46.0 [facility] Comment on above: Performed By: #### 2 82035 #### [facility],[address] [place] [address]36 Hemoglobin (Bld) [Mass/Vol] 9.7 g/dL Low 12.0 - 16.0 [facility] Comment on above: Performed By: #### 2 53104 #### [facility],[address] [place] [address]012 Lymph # 2.40 x10EE3/UL Normal 0.80 - 2.80 [facility] Comment on above: Performed By: #### 2 03832 #### [facility],[address] [place] [address]3047 Lymphocytes/100 WBC (Bld) 39.2 % Normal 20.0 - 45.0 [facility] Comment on above: Performed By: #### 2 15789 #### [facility],[address] [place] [address] 05306 MANUAL DIFF N/A Normal [facility] Comment on above: Performed By: #### 2 48021 #### [facility],[address] [place] [address] 09781 MCH (RBC) [Entitic mass] 26 pg Low 27 - 33 [facility] Comment on above: Performed By: #### 2 27941 #### [facility],[address] [place] [address] 94128 MCHC 33 X10 3 Normal 32 - 36 [facility] Comment on above: Performed By: #### 2 00084 #### [facility],[address] [place] [address] 60597 MCV (RBC) [Entitic vol] 77 fL Low 80 - 99 [facility] Comment on above: Performed By: #### 2 54247 #### [facility],[address] [place] [address] 70323 Iron # 0.56 x10EE3/UL Normal 0.20 - 1.00 [facility] Comment on above: Performed By: #### 2 43994 #### [facility],[address] [place] [address] 59472 MONOS % 9.2 % Normal 0.0 - 10.0 [facility] Comment on above: Performed By: #### 2 80637 #### [facility],[address] [place] [address] 29509 Morphology Stan (Bld) [Interp] N/A Normal [facility] Comment on above: Performed By: #### 2 18741 #### [facility],[address] [place] [address] 00843 Neut # 2.99 x10EE3/UL Normal 1.50 - 7.10 [facility] Comment on above: Performed By: #### 2 60250 #### [facility],[address] [place] [address] 17368 Neutrophils/100 WBC (Bld) 48.7 % Normal 46.0 - 76.0 [facility] Comment on above: Performed By: #### 2 92279 #### [facility],[address] [place] [address] 54154 PLATELET 504 x10EE3/UL High 150 - 450 [facility] Comment on above: Performed By: #### 2 62941 #### [facility],[address] [place] [address] 22712 Platelet mean volume (Bld) [Entitic vol] 7.8 fL Normal 6.6 - 10.5 [facility] Comment on above: Result Comment: AUTO MATED DIFFERENTIAL Performed By: #### 2 20595 #### [facility],[address] [place] [address] 09329 RBC 3.79 x 10EE6/UL Low 4.10 - 5.30 [facility] Comment on above: Performed By: #### 2 39463 #### [facility],[address] [place] [address] 53177 WBC 6.1 x 10EE3/UL Normal 4.5 - 10.8 [facility] Comment on above: Performed By: #### 2 03603 #### [facility],[address] [place] [address] 02073 VANCOMYCIN TROUGHon 10-04-19 25 VANCOMYCIN,TROUGH 11.5 ug/mL High 5.0 - 10.0 [facility] Comment on above: Performed By: #### 2 10855 ####[facility],[address] [place], [place] [address] CBC W Ordered Manual Differe ntial panel (Bld)on 10-02-2024 Basophils (Bld) [#/Vol] 0.04 10*3/uL [facility] Basophils/100 WBC (Bld) 0.5 % [facility] Differential cell count method Nom (Bld) Auto [facility] Eosinophils (Bld) [#/Vol] 0.14 10*3/uL [facility] Eosinophils/100 WBC (Bld) 1.9 % [facility] Erythrocyte distribution width (RBC) [Ratio] 15.7 % High 11.5 - 15.0 % [facility] Hematocrit (Bld) [Volume fraction] 30.2 % Low 36.0 - 46.0 % [facility] Hemoglobin (Bld) [Mass/Vol] 9.2 g/dL Low 11.5 - 15.5 g/dL [facility] Immature granulocytes (Bld) [#/Vol] [facility] Immature granulocytes/100 WBC (Bld) 0.3 % [facility] Interpretation and review of laboratory results Abnormal [facility] Lymphocytes (Bld) [#/Vol] 2.27 10*3/uL [facility] Lymphocytes/100 WBC (Bld) 30.5 % [facility] MCH (RBC) [Entitic mass] 24.2 pg Low 26.0 - 34.0 pg [facility] MCHC (RBC) [Mass/Vol] 30.5 g/dL 30.5 - 36.0 g/dL [facility] MCV (RBC) [Entitic vol] 79.5 fL Low 80.0 - 100.0 fL [facility] Monocytes (Bld) [#/Vol] 0.53 10*3/uL [facility] Monocytes/100 WBC (Bld) 7.1 % [facility] Neutrophils (Bld) [#/Vol] 4.44 10*3/uL [facility] Neutrophils/100 WBC (Bld) 59.7 % [facility] Nucleated RBC (Bld) [#/Vol] NINF [facility] Nucleated RBC/100 WBC (Bld) [Ratio] 0 % /100 WBC [facility] Platelet mean volume (Bld) [Entitic vol] 9 fL 9.0 - 12.7 fL [facility] Platelets (Bld) [#/Vol] 443 10*3/uL High [facility] RBC (Bld) [#/Vol] 3.8 10*6/uL Low 3.90 - 5.2 0 m/uL [facility] WBC (Bld) [#/Vol] 7.44 10*3/uL [facility] This is an appended report. These results have been appended to a previously verified report. [facility] IMMUNOGLOBULINS,IGG,IGA,IGMo n 10-02-2024 IgA [Mass/Vol] 324 mg/dL 70 - 400 mg/dL [facility] IgG [Mass/Vol] 2708 mg/dL High 700 - 1600 mg/dL [facility] IgM [Mass/Vol] 99 mg/dL 40 - 230 mg/dL [facility] Interpretation and review of laboratory results Abnormal [facility] LMW ANTI XA ASSAYOrdered By: Yoseph Urban on 10-02-2024 LMW Heparin Qn (PPP) 0.49 High [facility] Comment on above: Therapeutic Range: 0 .5 to 1.1 IU/mL ([facility] Med 1998: 122:799 to 807). LMW Heparin Qn (PPP)Ordered By: Yoseph Urban on 10-02-2024 Interpretation and review of laboratory results Abnormal [facility] Frozen Plasma Aliquo t [facility] PATHOLOGIST INTERPRETATION C BC/DIFFOrdered By: Jaden Sr on 10-02-2024 [employer] review Stan (Unsp spec) [Interp] No review performed. [facility] Pathologist Interpretation, CBCDIF The Pathologist Interpretation on this sample was cancelled because the hematology analyzer did not flag any parameters as requiring manual review. If there is a specific clinical concern for which you would like a pathologist to review the blood smear, please call Lab Client Services within [address] [facility] CMP with eGFRon 10-01-2024 AGE 39 years Normal [facility] Comment on above: Performed By: #### 2 61878 ####[facility],[address] [place] [address] 74963 Albumin [Mass/Vol] 1.8 g/dL Low 3.4 - 5.0 [facility] Comment on above: Performed By: #### 2 28799 ####[facility],[address] [place] [address] 62597 Albumin/Globulin [Mass ratio] 0.4 {ratio} Low 0.9 - 1.6 [facility] Comment on above: Performed By: #### 2 87032 ####[facility],[address] [place] [address] 78901 ALK PHOS 114 U/L Normal 46 - 116 [facility] Comment on above: Performed By: #### 2 30585 ####[facility],[address] [place] [address] 60363 ALT [Catalytic activity/Vol] 79 U/L High 16 - 63 [facility] Comment on above: Performed By: #### 2 38069 ####[facility],[address] [place] [address] 96072 Anion gap [Moles/Vol] 10 mmol/L Normal 10 - 20 [facility] Comment on above: Performed By: #### 2 13102 ####[facility],[address] [place] [address] 82881 AST [Catalytic activity/Vol] 34 U/L Normal 13 - 39 [facility] Comment on above: Performed By: #### 2 28903 ####[facility],[address] [place] [address] 84314 B/C RATIO 21 ratio Normal 0 - 30 [facility] Comment on above: Performed By: #### 2 16157 ####[facility],[address] [place] [address] 77596 Bilirubin [Mass/Vol] 0.5 mg/dL Normal 0.2 - 1.0 [facility] Comment on above: Performed By: #### 2 05753 ####[facility],[address] [place] [address] 44685 Calcium [Mass/Vol] 7.8 mg/dL Low 8.5 - 10.1 [facility] Comment on above: Performed By: #### 2 69718 ####[facility],[address] [place], [place] [id number] Chloride [Moles/Vol] 105 mmol/L Normal 98 - 107 [facility] Comment on above: Performed By: #### 2 61417 ####[facility],[address] [place] [address] CMP with eGFR Normal [facility] Comment on above: Result Comment: COMP REHENSIVE METABOLIC PANEL Performed By: #### 2 76918 ####[facility],[address] [place] [address] 32730 CO2 [Moles/Vol] 27.9 mmol/L Normal 21.0 - 32.0 [facility] Comment on above: Performed By: #### 2 75585 ####[facility],[address] [place] [address] 76412 Creatinine [Mass/Vol] 0.71 mg/dL Normal 0.55 - 1.02 [facility] Comment on above: Performed By: #### 2 98177 ####[facility],[address] [place] [address] 48490 GFR/1.73 sq M.predicted among non-blacks MDRD (S/P/Bld) [Vol rate/Area] mL/min/{1.73_m2} Normal 60 - 999 [facility] Comment on above: Performed By: #### 2 22991 ####[facility],[address] [place], [place] [id number] Result Comment: ACCO RDING TO THE NATIONAL KIDNEY DISEASE EDUCATION PROGRAM(NKDE), A NORMAL eGFR IS A VALUE GREATER THAN OR EQUAL TO 60 ML/MIN/1.73 SQ METERS. CHRONIC KIDNEY DISEASE: <60mL/MIN/1.73 SQ METERS KIDNEY FAILURE: <15mL/MIN/1.73 SQ METERS THIS TEST SHOULD ONLY BE USED FOR PATIENTS 18 YEARS OF AGE AND OLDER. Globulin (S) [Mass/Vol] 5.1 g/dL High 1.5 - 3.8 [facility] Comment on above: Performed By: #### 2 32803 ####[facility],[address] [place] [address] 56763 Glucose [Mass/Vol] 170 mg/dL High 74 - 106 [facility] Comment on above: Performed By: #### 2 67388 ####[facility],[address] [place] [address] 05947 Potassium [Moles/Vol] 3.7 mmol/L Normal 3.5 - 5.1 [facility] Comment on above: Performed By: #### 2 72859 ####[facility],[address] [place] [address] 46886 Protein [Mass/Vol] 6.9 g/dL Normal 6.4 - 8.2 [facility] Comment on above: Performed By: #### 2 66381 ####[facility],[address] [place] [address] 26557 Sodium [Moles/Vol] 139 mmol/L Normal 136 - 145 [facility] Comment on above: Performed By: #### 2 27999 ####[facility],[address] [place] [address] 17992 Urea nitrogen [Mass/Vol] 15 mg/dL Normal 7 - 18 [facility] Comment on above: Performed By: #### 2 82127 ####[facility],[address] [place] [address] 06809 MAGNESIUMon 10-01-2024 Magnesium [Mass/Vol] 1.8 mg/dL Normal 1.8 - 2.4 [facility] Comment on above: Performed By: #### 2 22299 #### [facility],[address] [place] [address] 93276 PHOSPHORUSon 10-01-2024 Phosphate [Mass/Vol] 3.6 mg/dL Normal 2.6 - 4.7 [facility] Comment on above: Performed By: #### 2 91124 ####[facility],[address] [place] [address] VANCOMYCIN TROUGHon 10-02-19 25 VANCOMYCIN,TROUGH 10.8 ug/mL High 5.0 - 10.0 [facility] Comment on above: Performed By: #### 2 48158 ####[facility],[address] [place] [address] VANCOMYCIN TROUGHon 09-29-19 25 VANCOMYCIN,TROUGH 9.6 ug/mL Normal 5.0 - 10.0 [facility] Comment on above: Performed By: #### 2 21781 #### [facility],[address] [place] [address] CBC + DIFFon 09-27-2024 Baso # 0.03 x10EE3/UL Normal 0.00 - 0.10 [facility] Comment on above: Performed By: #### 2 88467 ####[facility],[address] [place] [address] 32322 Basophils/100 WBC (Bld) 0.5 % Normal 0.0 - 2.0 [facility] Comment on above: Performed By: #### 2 83108 ####[facility],[address] [place] [address] CBC + DIFF Normal [facility] Comment on above: Result Comment: CBC- COMPLETE BLOOD COUNT Performed By: #### 2 89081 ####[facility],[address] [place] [address] 23653 EO # 0.16 x10EE3/UL Normal 0.00 - 0.50 [facility] Comment on above: Performed By: #### 2 58395 ####[facility],[address] [place] [address] 47014 Eosinophils/100 WBC (Bld) 2.4 % Normal 0.0 - 7.0 [facility] Comment on above: Performed By: #### 2 35261 ####[facility],[address] [place] [address] Erythrocyte distribution width (RBC) [Ratio] 16.7 % High 12.0 - 15.6 [facility] Comment on above: Performed By: #### 2 79084 ####[facility],[address] [place] [address] Hematocrit (Bld) [Volume fraction] 27.6 % Low 34.0 - 46.0 [facility] Comment on above: Performed By: #### 2 72814 ####[facility],[address] [place] [address] Hemoglobin (Bld) [Mass/Vol] 8.8 g/dL Low 12.0 - 16.0 [facility] Comment on above: Performed By: #### 2 48586 ####[facility],[address] [place] [address] 42574 Lymph # 1.44 x10EE3/UL Normal 0.80 - 2.80 [facility] Comment on above: Performed By: #### 2 55020 ####[facility],[address] [place] [address] 10111 Lymphocytes/100 WBC (Bld) 21.3 % Normal 20.0 - 45.0 [facility] Comment on above: Performed By: #### 2 81334 ####[facility],[address] [place] [address] 15440 MANUAL DIFF N/A Normal [facility] Comment on above: Performed By: #### 2 82872 ####[facility],[address] [place] [address] 24213 MCH (RBC) [Entitic mass] 25 pg Low 27 - 33 [facility] Comment on above: Performed By: #### 2 94735 ####[facility],[address] [place] [address] 57139 MCHC 32 X10 3 Normal 32 - 36 [facility] Comment on above: Performed By: #### 2 50531 ####[facility],[address] [place] [address] 48999 MCV (RBC) [Entitic vol] 79 fL Low 80 - 99 [facility] Comment on above: Performed By: #### 2 56239 ####[facility],[address] [place] [address] 68177 Iron # 0.61 x10EE3/UL Normal 0.20 - 1.00 [facility] Comment on above: Performed By: #### 2 68571 ####[facility],[address] [place] [address] 50175 MONOS % 9.1 % Normal 0.0 - 10.0 [facility] Comment on above: Performed By: #### 2 98638 ####[facility],[address] [place] [address] 28386 Morphology Stan (Bld) [Interp] N/A Normal [facility] Comment on above: Performed By: #### 2 92193 ####[facility],[address] [place] [address] 98574 Neut # 4.51 x10EE3/UL Normal 1.50 - 7.10 [facility] Comment on above: Performed By: #### 2 24935 ####[facility],[address] [place] [address] 22772 Neutrophils/100 WBC (Bld) 66.8 % Normal 46.0 - 76.0 [facility] Comment on above: Performed By: #### 2 48299 ####[facility],[address] [place] [address] 96336 PLATELET 543 x10EE3/UL High 150 - 450 [facility] Comment on above: Performed By: #### 2 17540 ####[facility],[address] [place] [address] 81852 Platelet mean volume (Bld) [Entitic vol] 7.9 fL Normal 6.6 - 10.5 [facility] Comment on above: Result Comment: AUTO MATED DIFFERENTIAL Performed By: #### 2 77936 ####[facility],[address] [place] [address] 73200 RBC 3.51 x 10EE6/UL Low 4.10 - 5.30 [facility] Comment on above: Performed By: #### 2 86915 ####[facility],[address] [place] [address] 04274 WBC 6.8 x 10EE3/UL Normal 4.5 - 10.8 [facility] Comment on above: Performed By: #### 2 57292 ####[facility],[address] [place] [address] 48035 CMP with eGFRon 09-27-2024 AGE 39 years Normal [facility] Comment on above: Performed By: #### 2 52203 ####[facility],[address] [place] [address] 72149 Albumin [Mass/Vol] 1.8 g/dL Low 3.4 - 5.0 [facility] Comment on above: Performed By: #### 2 34600 ####[facility],[address] [place] [address] 17459 Albumin/Globulin [Mass ratio] 0.3 {ratio} Low 0.9 - 1.6 [facility] Comment on above: Performed By: #### 2 73198 ####[facility],[address] [place] [address] 04525 ALK PHOS 131 U/L High 46 - 116 [facility] Comment on above: Performed By: #### 2 40880 ####[facility],[address] [place] [address] 95923 ALT [Catalytic activity/Vol] 90 U/L High 16 - 63 [facility] Comment on above: Performed By: #### 2 48942 ####[facility],[address] [place] [address] 62735 Anion gap [Moles/Vol] 10 mmol/L Normal 10 - 20 [facility] Comment on above: Performed By: #### 2 45924 ####[facility],[address] [place] [address] 54676 AST [Catalytic activity/Vol] 40 U/L High 13 - 39 [facility] Comment on above: Performed By: #### 2 94831 ####[facility],[address] [place] [address] 04634 B/C RATIO 20 ratio Normal 0 - 30 [facility] Comment on above: Performed By: #### 2 80481 ####[facility],[address] [place] [address] 69025 Bilirubin [Mass/Vol] 0.5 mg/dL Normal 0.2 - 1.0 [facility] Comment on above: Performed By: #### 2 20009 ####[facility],[address] [place] [address] 96840 Calcium [Mass/Vol] 8.1 mg/dL Low 8.5 - 10.1 [facility] Comment on above: Performed By: #### 2 83688 ####[facility],[address] [place] [address] 38424 Chloride [Moles/Vol] 102 mmol/L Normal 98 - 107 [facility] Comment on above: Performed By: #### 2 20974 ####[facility],[address] [place] [address] 10505 CMP with eGFR Normal [facility] Comment on above: Result Comment: COMP REHENSIVE METABOLIC PANEL Performed By: #### 2 51077 ####[facility],[address] [place] [address] 68005 CO2 [Moles/Vol] 26.0 mmol/L Normal 21.0 - 32.0 [facility] Comment on above: Performed By: #### 2 29244 ####[facility],[address] [place] [address] 17310 Creatinine [Mass/Vol] 0.71 mg/dL Normal 0.55 - 1.02 [facility] Comment on above: Performed By: #### 2 16772 ####[facility],[address] [place] [address] 60292 GFR/1.73 sq M.predicted among non-blacks MDRD (S/P/Bld) [Vol rate/Area] mL/min/{1.73_m2} Normal 60 - 999 [facility] Comment on above: Performed By: #### 2 64246 ####[facility],[address] [place], [place] [id number] Result Comment: ACCO RDING TO THE NATIONAL KIDNEY DISEASE EDUCATION PROGRAM(NKDE), A NORMAL eGFR IS A VALUE GREATER THAN OR EQUAL TO 60 ML/MIN/1.73 SQ METERS. CHRONIC KIDNEY DISEASE: <60mL/MIN/1.73 SQ METERS KIDNEY FAILURE: <15mL/MIN/1.73 SQ METERS THIS TEST SHOULD ONLY BE USED FOR PATIENTS 18 YEARS OF AGE AND OLDER. Globulin (S) [Mass/Vol] 5.3 g/dL High 1.5 - 3.8 [facility] Comment on above: Performed By: #### 2 05121 ####[facility],[address] [place] [address] 47034 Glucose [Mass/Vol] 82 mg/dL Normal 74 - 106 [facility] Comment on above: Performed By: #### 2 84456 ####[address] [address] Potassium [Moles/Vol] 3.6 mmol/L Normal 3.5 - 5.1 [facility] Comment on above: Performed By: #### 2 85005 ####[address] [address]27 Protein [Mass/Vol] 7.1 g/dL Normal 6.4 - 8.2 [facility] Comment on above: Performed By: #### 2 01788 ####[facility],[address] [place] [address] 33807 Sodium [Moles/Vol] 134 mmol/L Low 136 - 145 [facility] Comment on above: Performed By: #### 2 36909 ####[facility],[address] [place] [address] 73200 Urea nitrogen [Mass/Vol] 14 mg/dL Normal 7 - 18 [facility] Comment on above: Performed By: #### 2 10394 ####[facility],[address] [place] [address] MAGNESIUMon 09-27-2024 Magnesium [Mass/Vol] 1.9 mg/dL Normal 1.8 - 2.4 [facility] Comment on above: Performed By: #### 2 63168 #### [facility],[address] [place], [place] [id number] BMP with eGFRon 09-25-2024 AGE 39 years Normal [facility] Comment on above: Performed By: #### 2 80222 ####[facility],[address] [place] [address] Anion gap [Moles/Vol] 14 mmol/L Normal 10 - 20 [facility] Comment on above: Performed By: #### 2 05288 ####[facility],[address] [place], [place] [id number] BMP with eGFR Normal [facility] Comment on above: Result Comment: BASI C METABOLIC PANEL Performed By: #### 2 58669 ####[facility],[address] [place] [address] 82897 Calcium [Mass/Vol] 8.5 mg/dL Normal 8.5 - 10.1 [facility] Comment on above: Performed By: #### 2 54648 ####[facility],[address] [place], [place] [id number] Chloride [Moles/Vol] 101 mmol/L Normal 98 - 107 [facility] Comment on above: Performed By: #### 2 06990 ####[facility],[address] [place] [address] CO2 [Moles/Vol] 23.2 mmol/L Normal 21.0 - 32.0 [facility] Comment on above: Performed By: #### 2 61235 ####[facility],[address] [place] [address] Creatinine [Mass/Vol] 0.87 mg/dL Normal 0.55 - 1.02 [facility] Comment on above: Performed By: #### 2 44535 ####[facility],[address] [place] [address] GFR/1.73 sq M.predicted among non-blacks MDRD (S/P/Bld) [Vol rate/Area] mL/min/{1.73_m2} Normal 60 - 999 [facility] Comment on above: Performed By: #### 2 47723 ####[facility],[address] [place] [address] Result Comment: ACCO RDING TO THE NATIONAL KIDNEY DISEASE EDUCATION PROGRAM(NKDE), A NORMAL eGFR IS A VALUE GREATER THAN OR EQUAL TO 60 ML/MIN/1.73 SQ METERS. CHRONIC KIDNEY DISEASE: <60mL/MIN/1.73 SQ METERS KIDNEY FAILURE: <15mL/MIN/1.73 SQ METERS THIS TEST SHOULD ONLY BE USED FOR PATIENTS 18 YEARS OF AGE AND OLDER. Glucose [Mass/Vol] 89 mg/dL Normal 74 - 106 [facility] Comment on above: Performed By: #### 2 84508 ####[facility],[address] [place], [place] [phone] Potassium [Moles/Vol] 4.6 mmol/L Normal 3.5 - 5.1 [facility] Comment on above: Performed By: #### 2 83498 ####[facility],[address] [place] [address] Sodium [Moles/Vol] 134 mmol/L Low 136 - 145 [facility] Comment on above: Performed By: #### 2 80429 ####[facility],[address] [place] [address] Urea nitrogen [Mass/Vol] 11 mg/dL Normal 7 - 18 [facility] Comment on above: Performed By: #### 2 50188 ####[facility],[address] [place] [address] VANCOMYCIN TROUGHon 09-26-19 25 VANCOMYCIN,TROUGH 4.9 ug/mL Low 5.0 - 10.0 [facility] Comment on above: Performed By: #### 2 00908 #### [facility],[address] [place] [address] VANCOMYCIN,TROUGH 5.0 ug/mL Normal 5.0 - 10.0 [facility] Comment on above: Performed By: #### 2 16648 #### [facility],[address] [place] [address] CBC + DIFFon 09-24-2024 Baso # 0.07 x10EE3/UL Normal 0.00 - 0.10 [facility] Comment on above: Performed By: #### 2 18074 ####[facility],[address] [place] [address] Basophils/100 WBC (Bld) 0.6 % Normal 0.0 - 2.0 [facility] Comment on above: Performed By: #### 2 43847 ####[facility],[address] [place] [address] CBC + DIFF Normal [facility] Comment on above: Result Comment: CBC- COMPLETE BLOOD COUNT Performed By: #### 2 41907 ####[facility],[address] [place] [address] EO # 0.24 x10EE3/UL Normal 0.00 - 0.50 [facility] Comment on above: Performed By: #### 2 08838 ####[place] [id number] Eosinophils/100 WBC (Bld) 1.9 % Normal 0.0 - 7.0 [facility] Comment on above: Performed By: #### 2 98465 ####[place] [address] Erythrocyte distribution width (RBC) [Ratio] 17.1 % High 12.0 - 15.6 [facility] Comment on above: Performed By: #### 2 78546 ####[place] [address] Hematocrit (Bld) [Volume fraction] 26.8 % Low 34.0 - 46.0 [facility] Comment on above: Performed By: #### 2 22690 ####[place] [address] Hemoglobin (Bld) [Mass/Vol] 8.6 g/dL Low 12.0 - 16.0 [facility] Comment on above: Performed By: #### 2 33275 ####[place] [address] Lymph # 2.14 x10EE3/UL Normal 0.80 - 2.80 [facility] Comment on above: Performed By: #### 2 07517 ####[place] [address] Lymphocytes/100 WBC (Bld) 17.2 % Low 20.0 - 45.0 [facility] Comment on above: Performed By: #### 2 83824 ####[place] [address] MANUAL DIFF N/A Normal [facility] Comment on above: Performed By: #### 2 68732 ####[place] [address] MCH (RBC) [Entitic mass] 25 pg Low 27 - 33 [facility] Comment on above: Performed By: #### 2 73100 ####[facility],[address] [place] [address] 89129 MCHC 32 X10 3 Normal 32 - 36 [facility] Comment on above: Performed By: #### 2 81532 ####[facility],[address] [place] [address] 08351 MCV (RBC) [Entitic vol] 79 fL Low 80 - 99 [facility] Comment on above: Performed By: #### 2 79665 ####[facility],[address] [place] [address] 07752 Iron # 1.36 x10EE3/UL High 0.20 - 1.00 [facility] Comment on above: Performed By: #### 2 70646 ####[facility],[address] [place] [address] 34145 MONOS % 10.9 % High 0.0 - 10.0 [facility] Comment on above: Performed By: #### 2 95795 ####[facility],[address] [place] [address] 75616 Morphology Stan (Bld) [Interp] N/A Normal [facility] Comment on above: Performed By: #### 2 54593 ####[facility],[address] [place] [address] 23151 Neut # 8.65 x10EE3/UL High 1.50 - 7.10 [facility] Comment on above: Performed By: #### 2 58148 ####[facility],[address] [place] [address] 93455 Neutrophils/100 WBC (Bld) 69.4 % Normal 46.0 - 76.0 [facility] Comment on above: Performed By: #### 2 17849 ####[facility],[address] [place] [address] 98272 PLATELET 538 x10EE3/UL High 150 - 450 [facility] Comment on above: Performed By: #### 2 93984 ####[facility],[address] [place] [address] Platelet mean volume (Bld) [Entitic vol] 8.1 fL Normal 6.6 - 10.5 [facility] Comment on above: Result Comment: AUTO MATED DIFFERENTIAL Performed By: #### 2 97898 ####[facility],[address] [place] [address] RBC 3.39 x 10EE6/UL Low 4.10 - 5.30 [facility] Comment on above: Performed By: #### 2 33079 ####[facility],[address] [place] [address] WBC 12.5 x 10EE3/UL High 4.5 - 10.8 [facility] Comment on above: Performed By: #### 2 49250 ####[facility],[address] [place] [address] CMP with eGFRon 09-24-2024 AGE 39 years Normal [facility] Comment on above: Performed By: #### 2 14832 #### [facility],[address] [place] [address] Albumin [Mass/Vol] 1.7 g/dL Low 3.4 - 5.0 [facility] Comment on above: Performed By: #### 2 83599 #### [facility],[address] [place] [address] Albumin/Globulin [Mass ratio] 0.3 {ratio} Low 0.9 - 1.6 [facility] Comment on above: Performed By: #### 2 22858 #### [place] [address] ALK PHOS 144 U/L High 46 - 116 [facility] Comment on above: Performed By: #### 2 10201 #### [facility],[address],[place] [address] ALT [Catalytic activity/Vol] 90 U/L High 16 - 63 [facility] Comment on above: Performed By: #### 2 50366 #### [facility],[address] [place] [address] 40400 Anion gap [Moles/Vol] 13 mmol/L Normal 10 - 20 [facility] Comment on above: Performed By: #### 2 26383 #### [facility],[address] [place] [address] 70577 AST [Catalytic activity/Vol] 40 U/L High 13 - 39 [facility] Comment on above: Performed By: #### 2 62620 #### [facility],[address] [place] [address] 69278 B/C RATIO 22 ratio Normal 0 - 30 [facility] Comment on above: Performed By: #### 2 37664 #### [facility],[address] [place] [address] 72667 Bilirubin [Mass/Vol] 0.5 mg/dL Normal 0.2 - 1.0 [facility] Comment on above: Performed By: #### 2 56262 #### [facility],[address] [place] [address] 75544 Calcium [Mass/Vol] 8.1 mg/dL Low 8.5 - 10.1 [facility] Comment on above: Performed By: #### 2 78902 #### [facility],[address] [place] [address] 87218 Chloride [Moles/Vol] 101 mmol/L Normal 98 - 107 [facility] Comment on above: Performed By: #### 2 37934 #### [facility],[address] [place] [address] 42279 CMP with eGFR Normal [facility] Comment on above: Result Comment: COMP REHENSIVE METABOLIC PANEL Performed By: #### 2 93503 #### [facility],[address] [place] [address] 81435 CO2 [Moles/Vol] 25.9 mmol/L Normal 21.0 - 32.0 [facility] Comment on above: Performed By: #### 2 01082 #### [address] [address] Creatinine [Mass/Vol] 0.76 mg/dL Normal 0.55 - 1.02 [facility] Comment on above: Performed By: #### 2 19513 #### [facility],[address] [place] [address] GFR/1.73 sq M.predicted among non-blacks MDRD (S/P/Bld) [Vol rate/Area] mL/min/{1.73_m2} Normal 60 - 999 [facility] Comment on above: Performed By: #### 2 58363 #### [place] [id number] Result Comment: ACCO RDING TO THE NATIONAL KIDNEY DISEASE EDUCATION PROGRAM(NKDE), A NORMAL eGFR IS A VALUE GREATER THAN OR EQUAL TO 60 ML/MIN/1.73 SQ METERS. CHRONIC KIDNEY DISEASE: <60mL/MIN/1.73 SQ METERS KIDNEY FAILURE: <15mL/MIN/1.73 SQ METERS THIS TEST SHOULD ONLY BE USED FOR PATIENTS 18 YEARS OF AGE AND OLDER. Globulin (S) [Mass/Vol] 5.4 g/dL High 1.5 - 3.8 [facility] Comment on above: Performed By: #### 2 17886 #### [address] [address] Glucose [Mass/Vol] 88 mg/dL Normal 74 - 106 [facility] Comment on above: Performed By: #### 2 64269 #### [address] [address] Potassium [Moles/Vol] 3.7 mmol/L Normal 3.5 - 5.1 [facility] Comment on above: Performed By: #### 2 91894 #### [facility],[address] [place] [address] Protein [Mass/Vol] 7.1 g/dL Normal 6.4 - 8.2 [facility] Comment on above: Performed By: #### 2 24266 #### [facility],[address] [place] [address] Sodium [Moles/Vol] 136 mmol/L Normal 136 - 145 [facility] Comment on above: Performed By: #### 2 28556 #### [facility],[address] [place] [address] Urea nitrogen [Mass/Vol] 17 mg/dL Normal 7 - 18 [facility] Comment on above: Performed By: #### 2 56919 #### [facility],[address] [place] [address] MAGNESIUMon 09-24-2024 Magnesium [Mass/Vol] 1.9 mg/dL Normal 1.8 - 2.4 [facility] Comment on above: Performed By: #### 2 48831 #### [facility],[address] [place] [address] BCIDon 09-23-2024 Acinetobacter michael-baumanii complex Not detected Normal Not Detected [facility] Comment on above: Performed By: #### B ANITHA #### [place] [address] Bacteroides fragilis Not detected Normal Not Detected [facility] Comment on above: Performed By: #### B ANITHA #### [place] [address] BCID Comment See Comment Normal [facility] Comment on above: Result Comment: [...] follow. Performed By: #### B ANITHA #### [place] [address] Mary Ann albicans Not detected Normal Not Detected [facility] Comment on above: Performed By: #### B ANITHA #### [facility] [address] [place] [address] Mary Ann auris Not detected Normal Not Detected [facility] Comment on above: Performed By: #### B ANITHA #### [facility] [address] [place] [address] Mary Ann glabrata Not detected Normal Not Detected [facility] Comment on above: Performed By: #### B ANITHA #### [facility] [address] [place] [address] [place] krusei Not detected Normal Not Detected [facility] Comment on above: Performed By: #### B ANITHA #### [facility] [address] [place] [address] Mary Ann parapsilosis Not detected Normal Not Detected [facility] Comment on above: Performed By: #### B ANITHA #### [facility] [address] [place] [address] Amry Ann tropicalis Not detected Normal Not Detected [facility] Comment on above: Performed By: #### B ANITHA #### [facility] [address] [place] [address] Cryptococcus neoformans-gattii Not detected Normal Not Detected [facility] Comment on above: Performed By: #### B ANITHA #### [facility] [address] [place] [address] CTX-M (ESBL) Not Applicable Normal Not Detected [facility] Comment on above: Performed By: #### B ANITHA #### [facility] [address] [place] [address] E. Coli Not detected Normal Not Detected [facility] Comment on above: Performed By: #### B ANITHA #### [facility] [address] [place] [address] Enterobacter cloacae Complex Not detected Normal Not Detected [facility] Comment on above: Performed By: #### B ANITHA #### [facility] [address] [place] [address] Enterobacterales Not detected Normal Not Detected [facility] Comment on above: Performed By: #### B ANITHA #### [facility] [address] [place] [address] Enterococcus faecalis Not detected Normal Not Detected [facility] Comment on above: Performed By: #### B ANITHA #### [facility] [address] [place] [address] Enterococcus faecium Not detected Normal Not Detected [facility] Comment on above: Performed By: #### B AINTHA #### [facility] [address] [place], [place] [id number] Haemophilus influenzae Not detected Normal Not Detected [facility] Comment on above: Performed By: #### B ANITHA #### [facility] [address] [place] [address] IMP (Carbapenemase) Not Applicable Normal Not Detected [facility] Comment on above: Performed By: #### B ANITHA #### [facility] [address] [place] [address] Klebsiella aerogenes Not detected Normal Not Detected [facility] Comment on above: Performed By: #### B ANITHA #### [place] [address] Klebsiella oxytoca Not detected Normal Not Detected [facility] Comment on above: Performed By: #### B ANITHA #### [place] [address] Klebsiella pneumoniae group Not detected Normal Not Detected [facility] Comment on above: Performed By: #### B ANITHA #### [place] [address] KPC (Carbapenemase) Not Applicable Normal Not Detected [facility] Comment on above: Performed By: #### B ANITHA #### [facility] [address] [place] [address] Listeria monocytogenes Not detected Normal Not Detected [facility] Comment on above: Performed By: #### B ANITHA #### [facility] [address] [place] [address] MCR-1 (Colistin Resistance) Not Applicable Normal Not Detected [facility] Comment on above: Performed By: #### B ANITHA #### [facility] [address] [place], [place] [id number] Mec A/C Detected Abnormal Not Detected [facility] Comment on above: Performed By: #### B ANITHA #### [facility] [address] [place] [address] Mec A/C-MREJ (MRSA) Not Applicable Normal Not Detected [facility] Comment on above: Performed By: #### B ANITHA #### [place] [address] NDM (Carbapenemase) Not Applicable Normal Not Detected [facility] Comment on above: Performed By: #### B ANITHA #### [place] [address] Neisseria meningitidis (Encapsalated) Not detected Normal Not Detected [facility] Comment on above: Performed By: #### B ANITHA #### [place] [address] OXA-48 like (Carbapenemase) Not Applicable Normal Not Detected [facility] Comment on above: Performed By: #### B ANITHA #### [place] [address] Proteus Not detected Normal Not Detected [facility] Comment on above: Performed By: #### B ANITHA #### [place] [address] Pseudomonas aeruginosa Not detected Normal Not Detected [facility] Comment on above: Performed By: #### B ANITHA #### [place] [address] S. agalactiae Org specific cx Ql (Vag fld) Not detected Normal Not Detected [facility] Comment on above: Performed By: #### B ANITHA #### [place] [address] Salmonella species Not detected Normal Not Detected [facility] Comment on above: Performed By: #### B ANITHA #### [place] [address] Serratia marcescens Not detected Normal Not Detected [facility] Comment on above: Performed By: #### B ANITHA #### [place] [address] Staphylococcus Detected Abnormal Not Detected [facility] Comment on above: Performed By: #### B ANITHA #### [place] [address] Staphylococcus aureus Not detected Normal Not Detected [facility] Comment on above: Result Comment: If S taphylococcus aureus is Detected, an Infectious Disease physician consult is required on identification. Performed By: #### B ANITHA #### [place] [address] Staphylococcus epidermidis Detected Abnormal Not Detected [facility] Comment on above: Performed By: #### B ANITHA #### [place] [address] Staphylococcus lugdunensis Not detected Normal Not Detected [facility] Comment on above: Performed By: #### B ANITHA #### [place] [address] Stenotrophomonas maltophilia Not detected Normal Not Detected [facility] Comment on above: Performed By: #### B ANITHA #### [place] [address] Streptococcus Not detected Normal Not Detected [facility] Comment on above: Performed By: #### B ANITHA #### [place] [address] Streptococcus pneumoniae Not detected Normal Not Detected [facility] Comment on above: Performed By: #### B ANITHA #### [place] [address] Streptococcus pyogenes Not detected Normal Not Detected [facility] Comment on above: Performed By: #### B ANITHA #### [place] [address] Van A/B Not Applicable Normal Not Detected [facility] Comment on above: Performed By: #### B ANITHA #### [place] [address] VIM (Carbapenemase) Not Applicable Normal Not Detected [facility] Comment on above: Performed By: #### B ANITHA #### [place] [address] CULTURE CATHETER TIP [AULTMA N]on 09-23-2024 CULTURE CATHETER TIP [IRASEMA] CULTURE CATHETER TIP [IRASEMA] _CATHETER TIP CULTURE_ GO TO [employer] REPORTS AND ATTACHMENTS FOR SCANNED REPORT 09/28/24.1302.DNP.COMPLETE Normal [facility] Comment on above: Performed By: #### 2 48649 #### [facility],[address] [place] [address] CULTURE BLOOD [IRASEMA]on Microscopic examination of blood, culture CULTURE BLOOD [IRASEMA] _BLOOD CULTURE_ GO TO [employer] REPORTS AND ATTACHMENTS FOR SCANNED REPORT 09/28/24.1302.DNP.COMPLETE Normal [facility] Comment on above: Performed By: #### 2 69093 #### [facility],[address] [place] [address]6566 Microscopic examination of blood, culture CULTURE BLOOD [IRASEMA] _BLOOD CULTURE_ GO TO [employer] REPORTS AND ATTACHMENTS FOR SCANNED REPORT 09/28/24.1301.DNP.COMPLETE Normal [facility] Comment on above: Performed By: #### 2 03740 #### [facility],[address] [place] [address]30 URINALYSISon 09-21-2024 Bilirubin Ql (U) Negative Normal NORMAL: NEGATIVE [facility] Comment on above: Performed By: #### 2 14154 #### [facility],[address] [place] [address]001 Clarity (U) clear Normal NORMAL: CLEAR [facility] Comment on above: Performed By: #### 2 74687 #### [facility],[address] [place] [address] 72583 Color (U) yellow Normal NORMAL: YELLOW [facility] Comment on above: Performed By: #### 2 86385 #### [facility],[address] [place] [address] 30743 Glucose Ql (U) NORM Normal NORMAL: NORMAL [facility] Comment on above: Performed By: #### 2 02686 #### [facility],[address] [place] [address] 97694 Hemoglobin Ql (U) Negative Normal NORMAL: NEGATIVE [facility] Comment on above: Performed By: #### 2 49648 #### [facility],[address] [place] [address] Ketone Negative Normal NORMAL: NEGATIVE [facility] Comment on above: Performed By: #### 2 93172 #### [facility],[address] [place] [address] Leukocytes Negative Normal NORMAL: NEGATIVE [facility] Comment on above: Performed By: #### 2 23239 #### [facility],[address] [place] [address] Nitrite Ql (U) Negative Normal NORMAL: NEGATIVE [facility] Comment on above: Performed By: #### 2 87389 #### [facility],[address] [place] [address] pH (U) 6.5 [pH] Normal NORMAL: 5.0-8.0 [facility] Comment on above: Performed By: #### 2 50332 #### [facility],[address] [place] [address] Protein Ql (U) 15 Abnormal NORMAL: NEGATIVE [facility] Comment on above: Performed By: #### 2 01187 #### [facility],[address] [place] [address] Sp Balfour 1.020 Normal NORMAL: 1.010-1.030 [facility] Comment on above: Performed By: #### 2 37728 #### [facility],[address] [place] [address] Specimen Type Clean catch Normal [facility] Comment on above: Performed By: #### 2 14823 #### [facility],[address] [place] [address] Urinalysis dipstick W Reflex Microscopic panel (U) NOT INDICATED Normal [facility] Comment on above: Performed By: #### 2 87326 #### [facility],[address] [place] [address] Urobilinog NORM Normal NORMAL: NORMAL [facility] Comment on above: Performed By: #### 2 89128 #### [facility],[address] [place] [address] 27690 URINE CULTURE [CCL]on 2024 Bacteria identified Cx Nom (U) URCUL See Results Below See Below CULTURE, URINE MIXED MICROBIOTA 10,000 -<50,000 CFU/ml Mixed microbiota No further workup. Mixed microbiota can be due to???urine???contamination with s SOURCE: Urine (Nonspecific) [facility] [address] [place] [address] Jaison Lema III, M.D. [id number] Normal [facility] Comment on above: Performed By: #### 2 49616 #### [facility],[address] [place] [address] 80325 CBC + DIFFon 09-20-2024 Baso # 0.06 x10EE3/UL Normal 0.00 - 0.10 [facility] Comment on above: Performed By: #### 2 31197 ####[facility],[address] [place] [address] 89746 Basophils/100 WBC (Bld) 0.4 % Normal 0.0 - 2.0 [facility] Comment on above: Performed By: #### 2 41932 ####[facility],[address] [place] [address] 93659 Basophils/100 WBC (Bld) 1.0 % Normal 0.0 - 2.0 [facility] Comment on above: Performed By: #### 2 28577 ####[facility],[address] [place] [address] 43663 CBC + DIFF Normal [facility] Comment on above: Result Comment: CBC- COMPLETE BLOOD COUNT Performed By: #### 2 57416 ####[facility],[address] [place] [address] 63726 CELL COUNT 100 Normal [facility] Comment on above: Performed By: #### 2 86327 ####[facility],[address] [place] [address] 70247 EO 1.0 % Normal 0.0 - 7.0 [facility] Comment on above: Performed By: #### 2 55190 ####[facility],[address] [place] [address] 49413 EO # 0.22 x10EE3/UL Normal 0.00 - 0.50 [facility] Comment on above: Performed By: #### 2 90286 ####[facility],[address] [place] [address] 92558 Eosinophils/100 WBC (Bld) 1.4 % Normal 0.0 - 7.0 [facility] Comment on above: Performed By: #### 2 73624 ####[facility],[address] [place] [address] 73599 Erythrocyte distribution width (RBC) [Ratio] 18.0 % High 12.0 - 15.6 [facility] Comment on above: Performed By: #### 2 70669 ####[facility],[address] [place] [address] 26843 Hematocrit (Bld) [Volume fraction] 28.2 % Low 34.0 - 46.0 [facility] Comment on above: Performed By: #### 2 58133 ####[facility],[address] [place] [address] 39380 Hemoglobin (Bld) [Mass/Vol] 9.1 g/dL Low 12.0 - 16.0 [facility] Comment on above: Performed By: #### 2 50391 ####[facility],[address] [place] [address] 67126 Lymph # 2.04 x10EE3/UL Normal 0.80 - 2.80 [facility] Comment on above: Performed By: #### 2 28556 ####[facility],[address] [place] [address] 12667 Lymphocytes/100 WBC (Bld) 12.6 % Low 20.0 - 45.0 [facility] Comment on above: Performed By: #### 2 17859 ####[facility],[address] [place] [address] Lymphocytes/100 WBC (Bld) 13 % Low 20 - 45 [facility] Comment on above: Performed By: #### 2 03393 ####[facility],[address] [place] [address] MANUAL DIFF SEE BELOW Normal [facility] Comment on above: Performed By: #### 2 92452 ####[facility],[address] [place] [address] MCH (RBC) [Entitic mass] 26 pg Low 27 - 33 [facility] Comment on above: Performed By: #### 2 48554 ####[facility],[address] [place] [address] MCHC 32 X10 3 Normal 32 - 36 [facility] Comment on above: Performed By: #### 2 39550 ####[facility],[address] [place] [address] MCV (RBC) [Entitic vol] 80 fL Normal 80 - 99 [facility] Comment on above: Performed By: #### 2 48888 ####[facility],[address] [place] [address] Iron # 1.34 x10EE3/UL High 0.20 - 1.00 [facility] Comment on above: Performed By: #### 2 56176 ####[facility],[address] [place] [address] MONOS 4 % Normal 0 - 10 [facility] Comment on above: Performed By: #### 2 25317 ####[facility],[address] [place] [address] MONOS % 8.3 % Normal 0.0 - 10.0 [facility] Comment on above: Performed By: #### 2 84013 ####[facility],[address] [place] [address] Morphology Stan (Bld) [Interp] REVIEWED Normal [facility] Comment on above: Performed By: #### 2 77826 ####[facility],[address] [place] [address] Neut # 12.46 x10EE3/UL High 1.50 - 7.10 [facility] Comment on above: Performed By: #### 2 70878 ####[facility],[address] [place] [address] Neutrophils/100 WBC (Bld) 77.3 % High 46.0 - 76.0 [facility] Comment on above: Performed By: #### 2 44248 ####[facility],[address] [place] [address] NRBC 1 /100 Normal [facility] Comment on above: Performed By: #### 2 77202 ####[facility],[address] [place] [address] PLATELET 422 x10EE3/UL Normal 150 - 450 [facility] Comment on above: Performed By: #### 2 36417 ####[facility],[address] [place] [address] Platelet mean volume (Bld) [Entitic vol] 8.8 fL Normal 6.6 - 10.5 [facility] Comment on above: Result Comment: AUTO MATED DIFFERENTIAL Performed By: #### 2 24656 ####[facility],[address] [place] [address] RBC 3.52 x 10EE6/UL Low 4.10 - 5.30 [facility] Comment on above: Performed By: #### 2 96249 ####[facility],[address] [place] [address] SEGS 81 % High 46 - 76 [facility] Comment on above: Performed By: #### 2 98067 ####[facility],[address],[place] [address] WBC 16.1 x 10EE3/UL High 4.5 - 10.8 [facility] Comment on above: Performed By: #### 2 43021 ####[facility],[address] [place], [place] [id number] CMP with eGFRon 09-20-2024 AGE 39 years Normal [facility] Comment on above: Performed By: #### 2 95807 #### [facility],[address] [place] [address] Albumin [Mass/Vol] 1.6 g/dL Low 3.4 - 5.0 [facility] Comment on above: Performed By: #### 2 99645 #### [facility],[address] [place] [address] Albumin/Globulin [Mass ratio] 0.3 {ratio} Low 0.9 - 1.6 [facility] Comment on above: Performed By: #### 2 96563 #### [facility],[address] [place], [place] [id number] ALK PHOS 136 U/L High 46 - 116 [facility] Comment on above: Performed By: #### 2 71604 #### [facility],[address] [place], [place] [id number] ALT [Catalytic activity/Vol] 80 U/L High 16 - 63 [facility] Comment on above: Performed By: #### 2 79306 #### [facility],[address] [place], [place] [id number] Anion gap [Moles/Vol] 10 mmol/L Normal 10 - 20 [facility] Comment on above: Performed By: #### 2 33067 #### [facility],[address] [place] [address] 06265 AST [Catalytic activity/Vol] 34 U/L Normal 13 - 39 [facility] Comment on above: Performed By: #### 2 08070 #### [facility],[address] [place], [place] [id number] B/C RATIO 15 ratio Normal 0 - 30 [facility] Comment on above: Performed By: #### 2 44108 #### [facility],[address] [place], [place] [id number] Bilirubin [Mass/Vol] 0.6 mg/dL Normal 0.2 - 1.0 [facility] Comment on above: Performed By: #### 2 92440 #### [facility],[address] [place] [address] Calcium [Mass/Vol] 8.1 mg/dL Low 8.5 - 10.1 [facility] Comment on above: Performed By: #### 2 27894 #### [facility],[address] [place] [address] Chloride [Moles/Vol] 101 mmol/L Normal 98 - 107 [facility] Comment on above: Performed By: #### 2 61590 #### [facility],[address] [place] [address] CMP with eGFR Normal [facility] Comment on above: Result Comment: COMP REHENSIVE METABOLIC PANEL Performed By: #### 2 89215 #### [facility],[address] [place] [address] CO2 [Moles/Vol] 29.0 mmol/L Normal 21.0 - 32.0 [facility] Comment on above: Performed By: #### 2 91072 #### [facility],[address] [place], [place] [id number] Creatinine [Mass/Vol] 0.80 mg/dL Normal 0.55 - 1.02 [facility] Comment on above: Performed By: #### 2 72146 #### [facility],[address] [place], [place] [address] GFR/1.73 sq M.predicted among non-blacks MDRD (S/P/Bld) [Vol rate/Area] mL/min/{1.73_m2} Normal 60 - 999 [facility] Comment on above: Performed By: #### 2 70891 #### [facility],[address] [place] [address] Result Comment: ACCO RDING TO THE NATIONAL KIDNEY DISEASE EDUCATION PROGRAM(NKDE), A NORMAL eGFR IS A VALUE GREATER THAN OR EQUAL TO 60 ML/MIN/1.73 SQ METERS. CHRONIC KIDNEY DISEASE: <60mL/MIN/1.73 SQ METERS KIDNEY FAILURE: <15mL/MIN/1.73 SQ METERS THIS TEST SHOULD ONLY BE USED FOR PATIENTS 18 YEARS OF AGE AND OLDER. Globulin (S) [Mass/Vol] 5.3 g/dL High 1.5 - 3.8 [facility] Comment on above: Performed By: #### 2 81947 #### [facility],[address] [place] [address] 05571 Glucose [Mass/Vol] 98 mg/dL Normal 74 - 106 [facility] Comment on above: Performed By: #### 2 34905 #### [facility],[address] [place] [address] 33544 Potassium [Moles/Vol] 4.2 mmol/L Normal 3.5 - 5.1 [facility] Comment on above: Performed By: #### 2 43602 #### [facility],[address] [place] [address] 50975 Protein [Mass/Vol] 6.9 g/dL Normal 6.4 - 8.2 [facility] Comment on above: Performed By: #### 2 07349 #### [facility],[address] [place] [address] 13573 Sodium [Moles/Vol] 136 mmol/L Normal 136 - 145 [facility] Comment on above: Performed By: #### 2 93396 #### [facility],[address] [place] [address] 31871 Urea nitrogen [Mass/Vol] 12 mg/dL Normal 7 - 18 [facility] Comment on above: Performed By: #### 2 62468 #### [facility],[address] [place], [place] [id number] MAGNESIUMon 09-20-2024 Magnesium [Mass/Vol] 1.7 mg/dL Low 1.8 - 2.4 [facility] Comment on above: Performed By: #### 2 91997 ####[facility],[address] [place] [address] 19784 BCIDon 09-18-2024 Acinetobacter michael-baumanii complex Not detected Normal Not Detected [facility] Comment on above: Order Comment: aer Performed By: #### B ANITHA #### [place] [address] Bacteroides fragilis Not detected Normal Not Detected [facility] Comment on above: Order Comment: aer Performed By: #### B ANITHA #### [place] [address] BCID Comment See Comment Normal [facility] Comment on above: Order Comment: [...] follow. Performed By: #### B ANITHA #### [place] [address] Mary [place] albicans Not detected Normal Not Detected [facility] Comment on above: Order Comment: aer Performed By: #### B ANITHA #### [place] [address] [place] auris Not detected Normal Not Detected [facility] Comment on above: Order Comment: aer Performed By: #### B ANITHA #### [place] [address] [place] glabrata Not detected Normal Not Detected [facility] Comment on above: Order Comment: aer Performed By: #### B ANITHA #### [facility] [address] [place] [address] [place] krusei Not detected Normal Not Detected [facility] Comment on above: Order Comment: aer Performed By: #### B ANITHA #### [place] [address] [place] parapsilosis Not detected Normal Not Detected [facility] Comment on above: Order Comment: aer Performed By: #### B ANITHA #### [place] [address] Mayr Ann tropicalis Not detected Normal Not Detected [facility] Comment on above: Order Comment: aer Performed By: #### B ANITHA #### [place] [address] Cryptococcus neoformans-gattii Not detected Normal Not Detected [facility] Comment on above: Order Comment: aer Performed By: #### B ANITHA #### [place] [address] CTX-M (ESBL) Not Applicable Normal Not Detected [facility] Comment on above: Order Comment: aer Performed By: #### B ANITHA #### [place] [address] E. Coli Not detected Normal Not Detected [facility] Comment on above: Order Comment: aer Performed By: #### B ANITHA #### [place] [address] Enterobacter cloacae Complex Not detected Normal Not Detected [facility] Comment on above: Order Comment: aer Performed By: #### B ANITHA #### [place] [address] Enterobacterales Not detected Normal Not Detected [facility] Comment on above: Order Comment: aer Performed By: #### B ANITHA #### [place] [address] Enterococcus faecalis Not detected Normal Not Detected [facility] Comment on above: Order Comment: aer Performed By: #### B ANITHA #### [facility] [address] [place] [address] Enterococcus faecium Not detected Normal Not Detected [facility] Comment on above: Order Comment: aer Performed By: #### B ANITHA #### [facility] [address] [place] [address] Haemophilus influenzae Not detected Normal Not Detected [facility] Comment on above: Order Comment: aer Performed By: #### B ANITHA #### [place] [address] IMP (Carbapenemase) Not Applicable Normal Not Detected [facility] Comment on above: Order Comment: aer Performed By: #### B ANITHA #### [place] [address] Klebsiella aerogenes Not detected Normal Not Detected [facility] Comment on above: Order Comment: aer Performed By: #### B ANITHA #### [place] [address] Klebsiella oxytoca Not detected Normal Not Detected [facility] Comment on above: Order Comment: aer Performed By: #### B ANITHA #### [place] [address] Klebsiella pneumoniae group Not detected Normal Not Detected [facility] Comment on above: Order Comment: aer Performed By: #### B ANITHA #### [place] [address] KPC (Carbapenemase) Not Applicable Normal Not Detected [facility] Comment on above: Order Comment: aer Performed By: #### B ANITHA #### [place] [address] Listeria monocytogenes Not detected Normal Not Detected [facility] Comment on above: Order Comment: aer Performed By: #### B ANITHA #### [place] [address] MCR-1 (Colistin Resistance) Not Applicable Normal Not Detected [facility] Comment on above: Order Comment: aer Performed By: #### B ANITHA #### [place] [address] Mec A/C Detected Abnormal Not Detected [facility] Comment on above: Order Comment: aer Performed By: #### B ANITHA #### [place] [address] Mec A/C-MREJ (MRSA) Not Applicable Normal Not Detected [facility] Comment on above: Order Comment: aer Performed By: #### B ANITHA #### [place] [address] NDM (Carbapenemase) Not Applicable Normal Not Detected [facility] Comment on above: Order Comment: aer Performed By: #### B ANITHA #### [place] [address] Neisseria meningitidis (Encapsalated) Not detected Normal Not Detected [facility] Comment on above: Order Comment: aer Performed By: #### B ANITHA #### [place] [address] OXA-48 like (Carbapenemase) Not Applicable Normal Not Detected [facility] Comment on above: Order Comment: aer Performed By: #### B ANITHA #### [place] [address] Proteus Not detected Normal Not Detected [facility] Comment on above: Order Comment: aer Performed By: #### B ANITHA #### [place] [address] Pseudomonas aeruginosa Not detected Normal Not Detected [facility] Comment on above: Order Comment: aer Performed By: #### B ANITHA #### [place] [address] S. agalactiae Org specific cx Ql (Vag fld) Not detected Normal Not Detected [facility] Comment on above: Order Comment: aer Performed By: #### B ANITHA #### [address] [address] Salmonella species Not detected Normal Not Detected [facility] Comment on above: Order Comment: aer Performed By: #### B ANITHA #### [place] [id number] Serratia marcescens Not detected Normal Not Detected [facility] Comment on above: Order Comment: aer Performed By: #### B ANITHA #### [place] [id number] Staphylococcus Detected Abnormal Not Detected [facility] Comment on above: Order Comment: aer Performed By: #### B ANITHA #### [place] [id number] Staphylococcus aureus Not detected Normal Not Detected [facility] Comment on above: Order Comment: aer Result Comment: If S taphylococcus aureus is Detected, an Infectious Disease physician consult is required on identification. Performed By: #### B ANITHA #### [place] [address] Staphylococcus epidermidis Detected Abnormal Not Detected [facility] Comment on above: Order Comment: aer Performed By: #### B ANITHA #### [place] [id number] Staphylococcus lugdunensis Not detected Normal Not Detected [facility] Comment on above: Order Comment: aer Performed By: #### B ANITHA #### [place] [id number] Stenotrophomonas maltophilia Not detected Normal Not Detected [facility] Comment on above: Order Comment: aer Performed By: #### B ANITHA #### [place] [id number] Streptococcus Not detected Normal Not Detected [facility] Comment on above: Order Comment: aer Performed By: #### B ANITHA #### [facility] [address] [place] [address] Streptococcus pneumoniae Not detected Normal Not Detected [facility] Comment on above: Order Comment: aer Performed By: #### B ANITHA #### [facility] [address] [place] [address] Streptococcus pyogenes Not detected Normal Not Detected [facility] Comment on above: Order Comment: aer Performed By: #### B ANITHA #### [facility] [address] [place] [address] Van A/B Not Applicable Normal Not Detected [facility] Comment on above: Order Comment: aer Performed By: #### B ANITHA #### [place] [address] VIM (Carbapenemase) Not Applicable Normal Not Detected [facility] Comment on above: Order Comment: aer Performed By: #### B ANITHA #### [place] [address] C-REACTIVE PROTEINon 025 CRP 6.50 mg/dl High 0.00 - 0.90 [facility] Comment on above: Performed By: #### 2 84005 #### [facility],[address] [place] [address] CBC + DIFFon 09-17-2024 Baso # 0.02 x10EE3/UL Normal 0.00 - 0.10 [facility] Comment on above: Performed By: #### 2 39681 ####[facility],[address] [place] [address] 97488 Basophils/100 WBC (Bld) 0.2 % Normal 0.0 - 2.0 [facility] Comment on above: Performed By: #### 2 20485 ####[facility],[address] [place] [address] 67571 CBC + DIFF Normal [facility] Comment on above: Result Comment: CBC- COMPLETE BLOOD COUNT Performed By: #### 2 08428 ####[facility],[address] [place] [address] 27911 EO # 0.05 x10EE3/UL Normal 0.00 - 0.50 [facility] Comment on above: Performed By: #### 2 59613 ####[facility],[address] [place] [address] Eosinophils/100 WBC (Bld) 0.5 % Normal 0.0 - 7.0 [facility] Comment on above: Performed By: #### 2 72666 ####[place] [address] Erythrocyte distribution width (RBC) [Ratio] 17.2 % High 12.0 - 15.6 [facility] Comment on above: Performed By: #### 2 64194 ####[place] [address] Hematocrit (Bld) [Volume fraction] 27.0 % Low 34.0 - 46.0 [facility] Comment on above: Performed By: #### 2 79246 ####[place] [address] Hemoglobin (Bld) [Mass/Vol] 9.1 g/dL Low 12.0 - 16.0 [facility] Comment on above: Performed By: #### 2 45692 ####[place] [id number] Lymph # 1.13 x10EE3/UL Normal 0.80 - 2.80 [facility] Comment on above: Performed By: #### 2 43107 ####[place] [id number] Lymphocytes/100 WBC (Bld) 10.8 % Low 20.0 - 45.0 [facility] Comment on above: Performed By: #### 2 18765 ####[place] [address] MANUAL DIFF N/A Normal [facility] Comment on above: Performed By: #### 2 80712 ####[facility],[address] [place] [address]279 MCH (RBC) [Entitic mass] 27 pg Normal 27 - 33 [facility] Comment on above: Performed By: #### 2 92167 ####[facility],[address] [place] [address] MCHC 34 X10 3 Normal 32 - 36 [facility] Comment on above: Performed By: #### 2 97623 ####[facility],[address] [place], [place] [address] MCV (RBC) [Entitic vol] 80 fL Normal 80 - 99 [facility] Comment on above: Performed By: #### 2 24787 ####[facility],[address] [place] [address] Iron # 0.95 x10EE3/UL Normal 0.20 - 1.00 [facility] Comment on above: Performed By: #### 2 57869 ####[facility],[address] [place] [address] 09567 MONOS % 9.1 % Normal 0.0 - 10.0 [facility] Comment on above: Performed By: #### 2 30461 ####[facility],[address] [place], [place] [phone] Morphology Stan (Bld) [Interp] N/A Normal [facility] Comment on above: Performed By: #### 2 30131 ####[facility],[address] [place] [address]78 Neut # 8.26 x10EE3/UL High 1.50 - 7.10 [facility] Comment on above: Performed By: #### 2 74450 ####[facility],[address] [place], [place] [phone] Neutrophils/100 WBC (Bld) 79.4 % High 46.0 - 76.0 [facility] Comment on above: Performed By: #### 2 75837 ####[facility],[address] [place] [address]15 PLATELET 225 x10EE3/UL Normal 150 - 450 [facility] Comment on above: Performed By: #### 2 29947 ####[facility],[address] [place] [address] 97859 Platelet mean volume (Bld) [Entitic vol] 9.1 fL Normal 6.6 - 10.5 [facility] Comment on above: Result Comment: AUTO MATED DIFFERENTIAL Performed By: #### 2 69821 ####[facility],[address] [place] [address] 11212 RBC 3.39 x 10EE6/UL Low 4.10 - 5.30 [facility] Comment on above: Performed By: #### 2 64440 ####[facility],[address] [place] [address] 49368 WBC 10.4 x 10EE3/UL Normal 4.5 - 10.8 [facility] Comment on above: Performed By: #### 2 43514 ####[facility],[address] [place] [address] 95653 CHEST 1 VIEWon 09-17-2024 CHEST 1 VIEW [place] [address] Patient: DALY EVANS Phone#: : 1985 Age: 39 Gender: F Pt. Type: ER Account: [id number] Location: [facility] Ordering: DONTE MEZA Exam Date: 09/17/2024/6:23 Family Phys: MAGGIE PUTNAM Charge Code: 423784 Physician: Lagrange Order #: [id number] Dose#: PROCEDURE: X-RAY CHEST 1 VIEW COMPARISON: [...] Berry MD on 09/17/2024 at 10:53 Normal [facility] CMP with eGFRon 09-17-2024 AGE 39 years Normal [facility] Comment on above: Performed By: #### 2 91655 #### [facility],[address] [place] [address] 97692 Albumin [Mass/Vol] 1.9 g/dL Low 3.4 - 5.0 [facility] Comment on above: Performed By: #### 2 57243 #### [facility],[address] [place] [address] 38340 Albumin/Globulin [Mass ratio] 0.4 {ratio} Low 0.9 - 1.6 [facility] Comment on above: Performed By: #### 2 38832 #### [address] [address] ALK PHOS 82 U/L Normal 46 - 116 [facility] Comment on above: Performed By: #### 2 08775 #### [facility],[address] [place] [address] 86450 ALT [Catalytic activity/Vol] 68 U/L High 16 - 63 [facility] Comment on above: Performed By: #### 2 60609 #### [facility],[address] [place] [address] Anion gap [Moles/Vol] 11 mmol/L Normal 10 - 20 [facility] Comment on above: Performed By: #### 2 93179 #### [address] [address] AST [Catalytic activity/Vol] 48 U/L High 13 - 39 [facility] Comment on above: Performed By: #### 2 15041 #### [facility],[address] [place] [address] 76581 B/C RATIO 22 ratio Normal 0 - 30 [facility] Comment on above: Performed By: #### 2 30621 #### [facility],[address] [place] [address] 56888 Bilirubin [Mass/Vol] 0.4 mg/dL Normal 0.2 - 1.0 [facility] Comment on above: Performed By: #### 2 76157 #### [facility],[address] [place] [address] 51070 Calcium [Mass/Vol] 8.1 mg/dL Low 8.5 - 10.1 [facility] Comment on above: Performed By: #### 2 05870 #### [facility],[address] [place] [address] 97972 Chloride [Moles/Vol] 101 mmol/L Normal 98 - 107 [facility] Comment on above: Performed By: #### 2 18138 #### [facility],[address] [place], [place] [address] CMP with eGFR Normal [facility] Comment on above: Result Comment: COMP REHENSIVE METABOLIC PANEL Performed By: #### 2 41436 #### [facility],[address] [place] [address] 17251 CO2 [Moles/Vol] 27.6 mmol/L Normal 21.0 - 32.0 [facility] Comment on above: Performed By: #### 2 45424 #### [facility],[address] [place] [address] 82101 Creatinine [Mass/Vol] 0.90 mg/dL Normal 0.55 - 1.02 [facility] Comment on above: Performed By: #### 2 45695 #### [facility],[address] [place] [address]4973 GFR/1.73 sq M.predicted among non-blacks MDRD (S/P/Bld) [Vol rate/Area] mL/min/{1.73_m2} Normal 60 - 999 [facility] Comment on above: Performed By: #### 2 41352 #### [facility],[address] [place] [address] Result Comment: ACCO RDING TO THE NATIONAL KIDNEY DISEASE EDUCATION PROGRAM(NKDE), A NORMAL eGFR IS A VALUE GREATER THAN OR EQUAL TO 60 ML/MIN/1.73 SQ METERS. CHRONIC KIDNEY DISEASE: <60mL/MIN/1.73 SQ METERS KIDNEY FAILURE: <15mL/MIN/1.73 SQ METERS THIS TEST SHOULD ONLY BE USED FOR PATIENTS 18 YEARS OF AGE AND OLDER. Globulin (S) [Mass/Vol] 5.2 g/dL High 1.5 - 3.8 [facility] Comment on above: Performed By: #### 2 70090 #### [address] [address] Glucose [Mass/Vol] 139 mg/dL High 74 - 106 [facility] Comment on above: Performed By: #### 2 37417 #### [address] [address] Potassium [Moles/Vol] 3.2 mmol/L Low 3.5 - 5.1 [facility] Comment on above: Performed By: #### 2 24655 #### [address] [address] Protein [Mass/Vol] 7.1 g/dL Normal 6.4 - 8.2 [facility] Comment on above: Performed By: #### 2 60990 #### [address] [address] Sodium [Moles/Vol] 136 mmol/L Normal 136 - 145 [facility] Comment on above: Performed By: #### 2 88741 #### [address] [address] Urea nitrogen [Mass/Vol] 20 mg/dL High 7 - 18 [facility] Comment on above: Performed By: #### 2 34995 #### [place] [address] CORONAVIRUS (SARS) ANTIGEN T ESTon 09-17-2024 EXTERNAL QC DONE? YES Normal [facility] Comment on above: Performed By: #### 2 65796 #### [facility],[address] [place] [address] INTERNAL CONTROL PASS Normal [facility] Comment on above: Performed By: #### 2 89578 #### [place] [address] SARS ANTIGEN Negative Normal NORMAL: NEGATIVE [facility] Comment on above: Performed By: #### 2 32760 #### [place] [address] SEND TO ? NO Normal [facility] Comment on above: Result Comment: SARS -CoV-2 THIS TEST IS BEING USED UNDER THE FDA EUA PROCEDURE. THIS ASSAY HAS BEEN VALIDATED AT [facility] FOR USE WITH NASAL AND NASOPHARYNGEAL [...] PUBLIC HEALTH AUTHORITIES. Performed By: #### 2 28307 #### [place] [address] CT ABDOMEN/PELVIS [facility] 2024 CT ABDOMEN/PELVIS [place] [address] Patient: DALY EVANS Phone#: : 1985 Age: 39 Gender: F Pt. Type: ER Account: [id number] Location: [facility] Ordering: DONTE MEZA Exam Date: 09/17/2024/5:25 Family Phys: MAGGIE PUTNAM Charge Code: 327922 Physician: Lagrange Order #: [id number] Dose#: 28.4 PROCEDURE: CT ABDOMEN/PELVIS WITH CONTRAST [...] 39 Gender: F Pt. Type: ER Account: [id number] Location: [facility] Ordering: DONTE MZEA Exam Date: 09/17/2024/5:25 Family Phys: MAGGIE KENNEDYANGELA Charge Code: 601309 Physician: Lagrange Order #: [id number] Dose#: 28.4 CONCLUSION: 1. Findings consistent with colitis. 2. Left-sided ostomy is present. Dictated by: Seda Berry MD on 09/17/2024 at 9:27 Approved by: Seda Berry MD on 09/17/2024 at 9:33 Normal [facility] CULTURE BLOOD [IRASEMA]on Microscopic examination of blood, culture CULTURE BLOOD [IRASEMA] [facility] FOR SCANNED REPORT 09/24/24.1016.DNP.COMPLETE Normal [facility] Comment on above: Performed By: #### 2 62491 #### [facility],[address] [place] [address] Microscopic examination of blood, culture CULTURE BLOOD [IRASEMA] _BLOOD CULTURE_ [facility]ACH[facility] FOR SCANNED REPORT 09/21/24.1002.DNP.COMPLETE Normal [facility] Comment on above: Performed By: #### 2 04965 ####[facility],[address] [place] [address] CVFLURVon 09-17-2024 FLU A PCR Negative Normal Negative [facility] Comment on above: Result Comment: [place] [id number] Performed By: #### C VFLURV #### [facility] [address] [place] [address] FLU B PCR Negative Normal Negative [facility] Comment on above: Result Comment: [place] [address] Performed By: #### C VFLURV #### [facility] [address] [place], [place] [address] RSV PCR Negative Normal Negative [facility] Comment on above: Result Comment: [place] s [address] Performed By: #### C VFLURV #### [place] [address] [address] [place] [address] SARS-CoV-2 (COVID-19) RNA LAUREANO+probe Ql (Unsp spec) Negative Normal Negative [facility] Comment on above: Result Comment: [place] [address] This test has been authorized by FDA [...] results. Performed By: #### C VFLURV #### [place] [address] ED MED ADMINISTRATION DETAIL on 09-17-2024 ED MED ADMINISTRATION DETAIL [employer] Medication Administration Record [address] [place] [address] [phone] 09/17/2024 Patient: DALY EVANS Sex: Female : [...] and sedative warning. Verbalizes understanding. (abdominal pain 02/03). - 05:04 Tasha Schafer R.N. 1 of 2 [employer] Medication Ordered Medication Administration Date/Time Ondansetron IVP [...] and sedative warning. Verbalizes understanding. (abdominal pain 10). - 06:32 Tasha Schafer R.N. 2 of 2 Normal [facility] ED NURSES CLINICAL NOTEon ED NURSES CLINICAL NOTE Nurse Narrative Nurse Clinical Narrative [address] [address] [phone] 09/17/2024 Patient: DALY EVANS Sex: Female : 1985 Age: 39y Primary Insurance: [place] [employer]PAT[employer] Policy Number: [id number] Subscriber: Other Disposition: Discharge to Prison Disposition Decision Time: 07:40 09/17/2024 Departure Time: [...] Historian: (patient). Accompanied by family. Primary physician (augustine). Acuity: LEVEL 2. Chief Complaint: ABDOMINAL PAIN and ACHES (pain to abd upper quadrants radiating to lower quadrants). 04:47 09/17/24. ( onset on 09/14/24). The patient has had nausea and abdominal pain. The patient has had vomiting (yellow fluid multiple times). The patient has had fever (102 2 days ago). ( Pt is on TPN with her PICC Line). 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 SEPSIS SCREEN: POSITIVE. SIRS [...] a day every PM. -- 05:00 09/17/24 CAMERONT Aranza Winn R.N. escitalopram 20 mg tablet: once a day every PM. -- 05:09/17/24 CAMERONT Aranza Winn R.N. magnesium 400 mg (as magnesium oxide) tablet: 400 mg once a day every AM. -- 05:00 09/17/24 [place] Aranza Winn R.N. aspirin 81 mg chewable tablet: 81 mg once a day every AM. -- 05:09/17/24 CAMER[place] Aranza Winn R.N. atorvastatin 40 mg tablet: 40 mg once a day every PM. -- 05:09/17/24 CAM[place]ONT Aranza Winn R.N. pantoprazole 40 mg tablet,delayed release: once a day every AM. -- 05:09/17/24 CAMERONT Aranza Winn R.N. NovoLIN R Regular U-100 Insulin 100 unit/mL injection solution: 30 units once a day every AM. (into TPN bag prior to infusion.) -- 05:09/17/24 CAMERONT Aranza Winn R.N. Lantus U-100 Insulin 100 unit/mL subcutaneous solution: 10 units once a day every AM. -- 05:02 09/17/24 CAMERONT Aranza Winn R.N. enoxaparin 100 mg/mL subcutaneous syringe: 95 mg every 12 hours . -- 05:03 09/17/24 CAMERONT Aranza Winn R.N. dextrose 15 gram/32 mL oral gel packet: 15 grams as needed. (for blood glucose is less then 70mg/dl) -- 05:09 09/17/24 CAMERONT Aranza Winn R.N. ondansetron 4 mg disintegrating tablet: 4 mg every 6 hours as needed. -- 05:11 09/17/24 CAMERONT Aranza Winn R.N. TPN: (90ML/HR FOR 1 HOUR, 182ML/HR FOR 10 HOURS, 90ML/HR FOR 1 HOUR.) -- 05:15 09/17/24 CAMERONT Aranza Winn R.N. Allergies: no known drug allergies -- 04:39 09/17/24 EDT Vikki Harris R.N. 2 of 6 Nurse Narrative ADDITIONAL SURGERIES: abd surgery with colostomy -- 04:40 09/17/24 EDT Vikki Harris R.N. Cholecystectomy -- 04:40 09/17/24 EDT Vikki Harris R.N. -- 04:41 09/17/24 EDT Vikki Harris R.N. Carpal Tunnel Surgery -- 04:41 09/17/24 [...] factors identif (more content not included)... Normal [facility] ED ORDER SHEET (CPOE ONLY)on 09-17-2024 ED ORDER SHEET (CPOE ONLY) Order Sheet Order Sheet [address] [place] [address] [id number] 09/17/2024 Patient: DALY EVANS Sex: Female : 1985 Age: 39y MEASUREMENTS: Wt: 97.5 kg, Ht/Jean-Paul: 67.0 in, BMI: 33.67 ALLERGIES: No known drug allergies MEDICATION/IV/DRIP/FLUID ORDERS Order Description Priority Entered Acknowledged Completed IV NS 0.9 %1000 mL at 999 04:48 09/17/2024 04:49 05:08 mL/hr (NOW x1) Donte Meza D.O. 09/17/2024 09/17/2024 Tasha Sanchez [...] 09/17/2024 Cancelled: Wrong Patient mL/hr (NOW x1) Donte Meza D.O. 07:07 EDT Donte Meza D.O. Reason for ordering with alerts: Clinical consideration given --07:05 09/17/2024 Donte Meza D.O. LAB ORDERS Order Description Priority Entered Acknowledged Collected Completed CBC w Diff Stat Stat 04:48 09/17/2024 04:49 09/17/2024 05:08 09/17/2024 Renae Riggs Crystal Brenner, R.N. R.N. CMP Stat Stat 04:48 09/17/2024 04:49 09/17/2024 05:08 09/17/2024 Renae Riggs Crystal Brenner, R.N. R.N. Blood [...] AAg) Stat Renae Riggs Crystal Brenner, R.N. RIrene Rapid COVID (SARS) Stat 04:49 09/17/2024 04:51 09/17/2024 06:07 09/17/2024 ANTIGEN TEST Stat Renae Riggs Crystal Brenner, R.N. RIrene HCG, Qual Serum Stat Stat 04:54 09/17/2024 05:10 09/17/2024 06:07 09/17/2024 Renae Riggs Crystal Brenner, R.N. RIrene CRP Stat Stat 04:54 09/17/2024 05:10 09/17/2024 06:07 09/17/2024 Renae Riggs Crystal Brenner, R.N. RIrene Lipase Stat Stat 04:55 09/17/2024 05:10 09/17/2024 06:07 09/17/2024 Renae Riggs Crystal Brenner, R.N. RIrene DIAGNOSTIC STUDY ORDERS Order Description Priority Entered Acknowledged Completed Chest 1V Stat Stat 04:48 09/17/2024 04:49 05:09 3 of 4 Order Sheet Donte Meza D.O. 09/17/2024 09/17/2024 Tasha Sanchez R.N. R.NPriscila Reason for Study: Pneumonia CT ABD/PEL w Cont Stat Stat 04:48 09/17/2024 04:49 06:06 Donte Meza D.O. 09/17/2024 09/17/2024 Tasha Sanchez R.N. R.NPriscila Reason for Study: Abdominal Pain STAFF ORDERS Order Description Priority Entered Acknowledged Collected Completed Vital Signs every 30 04:48 09/17/2024 04:49 09/17/2024 05:09 09/17/2024 minutes Renae Riggs Crystal Brenner, R.N. RIrene Ring Maker 04:48 09/17/2024 04:49 09/17/2024 05:09 09/17/2024 Renae Riggs Crystal Brenner, R.N. R.N. Oxygen titrate to 92% 04:48 09/17/2024 04:49 09/17/2024 05:09 09/17/2024 Renae Riggs Crystal Brenner, R.N. R.N. [Electronically signed by Donte Meza D.O. (09/17/2024 08:24 EDT)] 4 of 4 Normal [facility] ED PHYSICIAN CLINICAL REPORT on 09-17-2024 ED PHYSICIAN CLINICAL REPORT Narrative Physician Clinical Narrative [facility] [address] [facility] [place] [address] [phone] 09/17/2024 Patient: DALY EVANS Sex: Female : 1985 Age: 39y Primary Insurance: [place] [employer] OUTPATIENT Policy Number: [id number] Subscriber: Other Disposition: Discharge to Prison Disposition Decision Time: 07:40 09/17/2024 Departure Time: [...] normal EDT (more content not included)... Normal [facility] ED [facility] BILLon 09-17-2024 ED [place] [address] [place] [address] [phone] 09/17/2024 Patient: DALY EVANS Sex: Female : 1985 Age: 39y Facility Professional Category Item Description Code Code Quantity Fee Total Drugs Normal Saline 081755 1 $0.00 $0.00 1000cc (779092) Nurse/E/M EMERGENCY 379277 1 $0.00 $0.00 DEPT VISIT HIGH SEVERITYFUNCJ (33278-27) Nurse/IV/IM/Infusions Hydration 011969 3 $0.00 $0.00 additional hour (49357) Nurse/IV/IM/Infusions IVP additional 125006 3 $0.00 $0.00 push (54319) Nurse/IV/IM/Infusions IVP initial (68954) 350160 1 $0.00 $0.00 Nurse/Supplies Central Line 818989 1 $0.00 $0.00 Dressing (747405) Grand $0.00 Total Providers 1 of 2 [facility] Donte Meza D.O. Chief Complaint ABDOMINAL PAIN. Principal Diagnosis Generalized abdominal pain. (Postoperative abdominal pain). Vomiting with nausea. status post abdominal surgery with left-sided ostomy. ICD-10 Codes R10.84: Generalized abdominal pain R11.2: Nausea with vomiting, unspecified 2 of 2 Normal [facility] ED VISIT SUMMARYon ED VISIT SUMMARY Visit Overview Visit Overview [address] [place] [address] [id number] 09/17/2024 Patient: DALY EVANS Sex: Female : [...] mg every 6 hours for pain. 1 4 Visit Overview aspirin 81 mg chewable [...] nausea and vomiting. Recent ileostomy placement at [facility]). GENERAL / NEURO / PSYCH: Alert. Oriented [...] VOMITING WITH NAUSEA 4 of 4 Normal [facility] ED VITALS FLOW SHEETon 09-17 ED VITALS FLOW SHEET Vitals Vital Sign Flow Sheet [address] [address] [id number] 09/17/2024 Patient: DALY EVANS Sex: Female : [...] 139/87 94 [phone] 3 of 3 Normal [facility] INFLUENZA VIRUS RAPID A/Bon 09-17-2024 INFLUENZA [...] TO THREE DAYS. RESULT CRITICAL? NO Normal [facility] Comment on above: Performed By: #### 2 75107 #### [place] [address] LACTATEon 09-17-2024 Lactate [Moles/Vol] 1.4 mmol/L Normal 0.4 - 2.0 [facility] Comment on above: Performed By: #### 2 70106 #### [place] [address] LIPASEon 09-17-2024 Lipase [Catalytic activity/Vol] 38.0 U/L Normal 15.0 - 78.0 [facility] Comment on above: Result Comment: *PLE ASE NOTE THAT RANGES FOR LIPASE HAVE CHANGED OF 06/24/23 DUE TO AN ASSAY UPDATE BY THE MANAGER OF RECRUITING.THE NEW ASSAY RANGE IS 6-250 U/L, WITH A REFERENCE RANGE OF 16-77 U/L. Performed By: #### 2 80194 #### [place] [address] SERUM QUALon 09-17 EXTERNAL QC DONE? YES Normal [facility] Comment on above: Performed By: #### 2 89069 ####[facility],[address] [place] [address] INTERNAL QC PASS Normal [facility] Comment on above: Performed By: #### 2 44329 ####[facility],[address] [place] [address] SER Negative Normal NEGATIVE [facility] Comment on above: Performed By: #### 2 33878 ####[facility],[address] [place] [address] RSVon 09-17-2024 RSV RSV NEGATIVE INTERNAL NEG QC PASS INTERNAL POS QC PASS EXTERNAL QC DONE? YES THIS TESTS IS INTENDED FOR IN VITRO DIAGNOSTIC USE TO AID IN THE DIAGNOSIS OF RESPIRATORY SYNCTYIAL VIRUS INFECTIONS IN AND PEDIATRIC PATIENTS UNDER THE AGE OF 5. IT IS RECOMMENDED THAT NEGATIVE TEST RESULTS BE CONFIRMED BY CELL CULTURE. Normal [facility] Comment on above: Performed By: #### 2 48951 #### [facility],[address] [place] [address] TROPONINon 09-17-2024 HS TROPONIN 7.5 pg/mL Normal 0.0 - 51.4 [facility] Comment on above: Performed By: #### 2 14520 #### [facility],[address] [place] [address] CBC + DIFFon 09-15-2024 Baso # 0.00 x10EE3/UL Normal 0.00 - 0.10 [facility] Comment on above: Performed By: #### 2 36594 #### [facility],[address] [place], [place] [address] Basophils/100 WBC (Bld) 0.1 % Normal 0.0 - 2.0 [facility] Comment on above: Performed By: #### 2 07611 #### [facility],[address] [place] [address] CBC + DIFF Normal [facility] Comment on above: Result Comment: CBC- COMPLETE BLOOD COUNT Performed By: #### 2 70655 #### [facility],[address] [place] [address] 90647 EO # 0.01 x10EE3/UL Normal 0.00 - 0.50 [facility] Comment on above: Performed By: #### 2 36085 #### [facility],[address] [place] [address] Eosinophils/100 WBC (Bld) 0.3 % Normal 0.0 - 7.0 [facility] Comment on above: Performed By: #### 2 03380 #### [facility],[address] [place] [address] Erythrocyte distribution width (RBC) [Ratio] 17.5 % High 12.0 - 15.6 [facility] Comment on above: Performed By: #### 2 51211 #### [facility],[address] [place], [place] [id number] Hematocrit (Bld) [Volume fraction] 27.5 % Low 34.0 - 46.0 [facility] Comment on above: Performed By: #### 2 70629 #### [facility],[address] [place], [place] [id number] Hemoglobin (Bld) [Mass/Vol] 8.7 g/dL Low 12.0 - 16.0 [facility] Comment on above: Performed By: #### 2 05351 #### [facility],[address] [place] [address] 34007 Lymph # 0.62 x10EE3/UL Low 0.80 - 2.80 [facility] Comment on above: Performed By: #### 2 19402 #### [facility],[address] [place], [place] [id number] Lymphocytes/100 WBC (Bld) 13.7 % Low 20.0 - 45.0 [facility] Comment on above: Performed By: #### 2 21100 #### [facility],[address] [place] [address] MANUAL DIFF N/A Normal [facility] Comment on above: Performed By: #### 2 47244 #### [facility],[address] [place] [address] MCH (RBC) [Entitic mass] 25 pg Low 27 - 33 [facility] Comment on above: Performed By: #### 2 30877 #### [facility],[address] [place] [address] MCHC 32 X10 3 Normal 32 - 36 [facility] Comment on above: Performed By: #### 2 16407 #### [facility],[address] [place] [address] MCV (RBC) [Entitic vol] 80 fL Normal 80 - 99 [facility] Comment on above: Performed By: #### 2 63737 #### [facility],[address] [place] [address] Iron # 0.17 x10EE3/UL Low 0.20 - 1.00 [facility] Comment on above: Performed By: #### 2 33812 #### [facility],[address] [place] [address] MONOS % 3.8 % Normal 0.0 - 10.0 [facility] Comment on above: Performed By: #### 2 50701 #### [facility],[address] [place] [address] Morphology Stan (Bld) [Interp] N/A Normal [facility] Comment on above: Performed By: #### 2 65701 #### [facility],[address] [place] [address] Neut # 3.70 x10EE3/UL Normal 1.50 - 7.10 [facility] Comment on above: Performed By: #### 2 97930 #### [facility],[address] [place] [address] 55872 Neutrophils/100 WBC (Bld) 82.2 % High 46.0 - 76.0 [facility] Comment on above: Performed By: #### 2 20660 #### [facility],[address] [place] [address] 55161 PLATELET 272 x10EE3/UL Normal 150 - 450 [facility] Comment on above: Performed By: #### 2 07784 #### [facility],[address] [place] [address] 31630 Platelet mean volume (Bld) [Entitic vol] 8.2 fL Normal 6.6 - 10.5 [facility] Comment on above: Result Comment: AUTO MATED DIFFERENTIAL Performed By: #### 2 94362 #### [facility],[address] [place] [address] 78838 RBC 3.43 x 10EE6/UL Low 4.10 - 5.30 [facility] Comment on above: Performed By: #### 2 92067 #### [facility],[address] [place] [address] 65299 WBC 4.5 x 10EE3/UL Normal 4.5 - 10.8 [facility] Comment on above: Performed By: #### 2 85549 #### [facility],[address] [place] [address] 96226 CMP with eGFRon 09-15-2024 AGE 39 years Normal [facility] Comment on above: Performed By: #### 2 87720 #### [facility],[address] [place] [address] 95754 Albumin [Mass/Vol] 1.9 g/dL Low 3.4 - 5.0 [facility] Comment on above: Performed By: #### 2 04055 #### [facility],[address] [place] [address] 76377 Albumin/Globulin [Mass ratio] 0.3 {ratio} Low 0.9 - 1.6 [facility] Comment on above: Performed By: #### 2 63039 #### [facility],[address] [place] [address] 30585 ALK PHOS 82 U/L Normal 46 - 116 [facility] Comment on above: Performed By: #### 2 71904 #### [facility],[address] [place] [address] 72299 ALT [Catalytic activity/Vol] 27 U/L Normal 16 - 63 [facility] Comment on above: Performed By: #### 2 85465 #### [facility],[address] [place] [address] 63597 Anion gap [Moles/Vol] 13 mmol/L Normal 10 - 20 [facility] Comment on above: Performed By: #### 2 05577 #### [facility],[address] [place] [address] 91684 AST [Catalytic activity/Vol] 31 U/L Normal 13 - 39 [facility] Comment on above: Performed By: #### 2 24477 #### [facility],[address] [place] [address] 19876 B/C RATIO 14 ratio Normal 0 - 30 [facility] Comment on above: Performed By: #### 2 83532 #### [facility],[address] [place] [address] 62629 Bilirubin [Mass/Vol] 0.5 mg/dL Normal 0.2 - 1.0 [facility] Comment on above: Performed By: #### 2 68590 #### [facility],[address] [place] [address] 14750 Calcium [Mass/Vol] 8.0 mg/dL Low 8.5 - 10.1 [facility] Comment on above: Performed By: #### 2 52052 #### [facility],[address] [place] [address] 89447 Chloride [Moles/Vol] 100 mmol/L Normal 98 - 107 [facility] Comment on above: Performed By: #### 2 13630 #### [facility],[address] [place] [address] 37588 CMP with eGFR Normal [facility] Comment on above: Result Comment: COMP REHENSIVE METABOLIC PANEL Performed By: #### 2 88461 #### [facility],[address] [place] [address] 38539 CO2 [Moles/Vol] 24.6 mmol/L Normal 21.0 - 32.0 [facility] Comment on above: Performed By: #### 2 63063 #### [facility],[address] [place] [address] 49644 Creatinine [Mass/Vol] 1.06 mg/dL High 0.55 - 1.02 [facility] Comment on above: Performed By: #### 2 34511 #### [facility],[address] [place] [address] 91227 eGFR 57 ML/MINUTE Low 60 - 999 [facility] Comment on above: Performed By: #### 2 60947 #### [facility],[address] [place] [address] 32272 GFR/1.73 sq M.predicted among non-blacks MDRD (S/P/Bld) [Vol rate/Area] mL/min/{1.73_m2} Normal 60 - 999 [facility] Comment on above: Result Comment: ACCO RDING TO THE NATIONAL KIDNEY DISEASE EDUCATION PROGRAM(NKDE), A NORMAL eGFR IS A VALUE GREATER THAN OR EQUAL TO 60 ML/MIN/1.73 SQ METERS. CHRONIC KIDNEY DISEASE: <60mL/MIN/1.73 SQ METERS KIDNEY FAILURE: <15mL/MIN/1.73 SQ METERS THIS TEST SHOULD ONLY BE USED FOR PATIENTS 18 YEARS OF AGE AND OLDER. Performed By: #### 2 41210 #### [facility],[address] [place] [address] 90201 Globulin (S) [Mass/Vol] 5.5 g/dL High 1.5 - 3.8 [facility] Comment on above: Performed By: #### 2 29237 #### [facility],[address] [place] [address] Glucose [Mass/Vol] 105 mg/dL Normal 74 - 106 [facility] Comment on above: Performed By: #### 2 98386 #### [facility],[address] [place] [address] Potassium [Moles/Vol] 3.7 mmol/L Normal 3.5 - 5.1 [facility] Comment on above: Performed By: #### 2 83138 #### [facility],[address] [place] [address] Protein [Mass/Vol] 7.4 g/dL Normal 6.4 - 8.2 [facility] Comment on above: Performed By: #### 2 99633 #### [place] [address] Sodium [Moles/Vol] 134 mmol/L Low 136 - 145 [facility] Comment on above: Performed By: #### 2 48905 #### [place] [address] Urea nitrogen [Mass/Vol] 15 mg/dL Normal 7 - 18 [facility] Comment on above: Performed By: #### 2 83950 #### [place] [address] CBC + DIFFon 09-13-2024 Baso # 0.02 x10EE3/UL Normal 0.00 - 0.10 [facility] Comment on above: Performed By: #### 2 16298 #### [place] [address] Basophils/100 WBC (Bld) 0.3 % Normal 0.0 - 2.0 [facility] Comment on above: Performed By: #### 2 84570 #### [facility],[address] [place], [place] [id number] CBC + DIFF Normal [facility] Comment on above: Result Comment: CBC- COMPLETE BLOOD COUNT Performed By: #### 2 58211 #### [facility],[address] [place] [address] 21459 EO # 0.26 x10EE3/UL Normal 0.00 - 0.50 [facility] Comment on above: Performed By: #### 2 18132 #### [facility],[address] [place] [address] Eosinophils/100 WBC (Bld) 3.9 % Normal 0.0 - 7.0 [facility] Comment on above: Performed By: #### 2 38311 #### [facility],[address] [place], [place] [phone] Erythrocyte distribution width (RBC) [Ratio] 17.0 % High 12.0 - 15.6 [facility] Comment on above: Performed By: #### 2 89574 #### [facility],[address] [place] [address] 58227 Hematocrit (Bld) [Volume fraction] 29.3 % Low 34.0 - 46.0 [facility] Comment on above: Performed By: #### 2 60479 #### [facility],[address] [place] [address] 88920 Hemoglobin (Bld) [Mass/Vol] 9.5 g/dL Low 12.0 - 16.0 [facility] Comment on above: Performed By: #### 2 39456 #### [facility],[address] [place] [address] 52164 Lymph # 1.51 x10EE3/UL Normal 0.80 - 2.80 [facility] Comment on above: Performed By: #### 2 33689 #### [facility],[address] [place] [address] 96758 Lymphocytes/100 WBC (Bld) 22.6 % Normal 20.0 - 45.0 [facility] Comment on above: Performed By: #### 2 53020 #### [facility],[address] [place] [address] MANUAL DIFF N/A Normal [facility] Comment on above: Performed By: #### 2 73142 #### [facility],[address] [place] [address] MCH (RBC) [Entitic mass] 26 pg Low 27 - 33 [facility] Comment on above: Performed By: #### 2 75424 #### [facility],[address] [place] [address] MCHC 33 X10 3 Normal 32 - 36 [facility] Comment on above: Performed By: #### 2 15594 #### [facility],[address] [place] [address] MCV (RBC) [Entitic vol] 81 fL Normal 80 - 99 [facility] Comment on above: Performed By: #### 2 76914 #### [facility],[address] [place] [address] Iron # 0.38 x10EE3/UL Normal 0.20 - 1.00 [facility] Comment on above: Performed By: #### 2 81312 #### [facility],[address] [place] [address] MONOS % 5.6 % Normal 0.0 - 10.0 [facility] Comment on above: Performed By: #### 2 25827 #### [facility],[address] [place] [address] Morphology Stan (Bld) [Interp] N/A Normal [facility] Comment on above: Performed By: #### 2 34586 #### [facility],[address] [place] [address] Neut # 4.54 x10EE3/UL Normal 1.50 - 7.10 [facility] Comment on above: Performed By: #### 2 50269 #### [facility],[address] [place] [address] 28297 Neutrophils/100 WBC (Bld) 67.6 % Normal 46.0 - 76.0 [facility] Comment on above: Performed By: #### 2 11762 #### [facility],[address] [place] [address] 09317 PLATELET 455 x10EE3/UL High 150 - 450 [facility] Comment on above: Performed By: #### 2 39192 #### [facility],[address] [place] [address] 37208 Platelet mean volume (Bld) [Entitic vol] 7.9 fL Normal 6.6 - 10.5 [facility] Comment on above: Result Comment: AUTO MATED DIFFERENTIAL Performed By: #### 2 17036 #### [facility],[address] [place] [address] 77653 RBC 3.63 x 10EE6/UL Low 4.10 - 5.30 [facility] Comment on above: Performed By: #### 2 50799 #### [facility],[address] [place] [address] 73036 WBC 6.7 x 10EE3/UL Normal 4.5 - 10.8 [facility] Comment on above: Performed By: #### 2 53660 #### [facility],[address] [place] [address] 87784 CMP with eGFRon 09-13-2024 AGE 39 years Normal [facility] Comment on above: Performed By: #### 2 55370 #### [facility],[address] [place] [address] 82117 Albumin [Mass/Vol] 2.1 g/dL Low 3.4 - 5.0 [facility] Comment on above: Performed By: #### 2 34501 #### [facility],[address] [place] [address] 18430 Albumin/Globulin [Mass ratio] 0.4 {ratio} Low 0.9 - 1.6 [facility] Comment on above: Performed By: #### 2 79084 #### [facility],[address] [place] [address] 17753 ALK PHOS 95 U/L Normal 46 - 116 [facility] Comment on above: Performed By: #### 2 60491 #### [facility],[address] [place] [address] 55431 ALT [Catalytic activity/Vol] 25 U/L Normal 16 - 63 [facility] Comment on above: Performed By: #### 2 32902 #### [facility],[address] [place] [address] 56593 Anion gap [Moles/Vol] 12 mmol/L Normal 10 - 20 [facility] Comment on above: Performed By: #### 2 92230 #### [facility],[address] [place] [address] 83059 AST [Catalytic activity/Vol] 20 U/L Normal 13 - 39 [facility] Comment on above: Performed By: #### 2 55955 #### [facility],[address] [place] [address] 04136 B/C RATIO 24 ratio Normal 0 - 30 [facility] Comment on above: Performed By: #### 2 18270 #### [facility],[address] [place] [address] 29286 Bilirubin [Mass/Vol] 0.4 mg/dL Normal 0.2 - 1.0 [facility] Comment on above: Performed By: #### 2 19233 #### [facility],[address] [place] [address] 04907 Calcium [Mass/Vol] 8.7 mg/dL Normal 8.5 - 10.1 [facility] Comment on above: Performed By: #### 2 23424 #### [facility],[address] [place] [address] 44478 Chloride [Moles/Vol] 102 mmol/L Normal 98 - 107 [facility] Comment on above: Performed By: #### 2 86492 #### [facility],[address] [place], [place] [phone] CMP with eGFR Normal [facility] Comment on above: Result Comment: COMP REHENSIVE METABOLIC PANEL Performed By: #### 2 44615 #### [facility],[address] [place] [address] CO2 [Moles/Vol] 27.5 mmol/L Normal 21.0 - 32.0 [facility] Comment on above: Performed By: #### 2 16362 #### [facility],[address] [place] [address] Creatinine [Mass/Vol] 0.87 mg/dL Normal 0.55 - 1.02 [facility] Comment on above: Performed By: #### 2 54231 #### [place] [address] GFR/1.73 sq M.predicted among non-blacks MDRD (S/P/Bld) [Vol rate/Area] mL/min/{1.73_m2} Normal 60 - 999 [facility] Comment on above: Performed By: #### 2 70705 #### [place] [address] Result Comment: ACCO RDING TO THE NATIONAL KIDNEY DISEASE EDUCATION PROGRAM(NKDE), A NORMAL eGFR IS A VALUE GREATER THAN OR EQUAL TO 60 ML/MIN/1.73 SQ METERS. CHRONIC KIDNEY DISEASE: <60mL/MIN/1.73 SQ METERS KIDNEY FAILURE: <15mL/MIN/1.73 SQ METERS THIS TEST SHOULD ONLY BE USED FOR PATIENTS 18 YEARS OF AGE AND OLDER. Globulin (S) [Mass/Vol] 5.8 g/dL High 1.5 - 3.8 [facility] Comment on above: Performed By: #### 2 71592 #### [place] [address] Glucose [Mass/Vol] 74 mg/dL Normal 74 - 106 [facility] Comment on above: Performed By: #### 2 82278 #### [facility],[address] [place] [address] 40763 Potassium [Moles/Vol] 3.7 mmol/L Normal 3.5 - 5.1 [facility] Comment on above: Performed By: #### 2 42310 #### [facility],[address] [place] [address] 86692 Protein [Mass/Vol] 7.9 g/dL Normal 6.4 - 8.2 [facility] Comment on above: Performed By: #### 2 77566 #### [facility],[address] [place] [address] 72737 Sodium [Moles/Vol] 138 mmol/L Normal 136 - 145 [facility] Comment on above: Performed By: #### 2 69414 #### [facility],[address] [place], [place] [id number] Urea nitrogen [Mass/Vol] 21 mg/dL High 7 - 18 [facility] Comment on above: Performed By: #### 2 90965 #### [facility],[address] [place] [address] 66635 MAGNESIUMon 09-13-2024 Magnesium [Mass/Vol] 1.8 mg/dL Normal 1.8 - 2.4 [facility] Comment on above: Performed By: #### 2 82083 #### [facility],[address] [place] [address] 08795 CMP with eGFRon 09-10-2024 AGE 39 years Normal [facility] Comment on above: Performed By: #### 2 95607 ####[facility],[address] [place] [address] 18577 Albumin [Mass/Vol] 2.0 g/dL Low 3.4 - 5.0 [facility] Comment on above: Performed By: #### 2 11533 ####[place] [address],[place] [address] Albumin/Globulin [Mass ratio] 0.4 {ratio} Low 0.9 - 1.6 [facility] Comment on above: Performed By: #### 2 22390 ####[facility],[address] [place] [address] 12812 ALK PHOS 93 U/L Normal 46 - 116 [facility] Comment on above: Performed By: #### 2 43223 ####[facility],[address] [place] [address] 64914 ALT [Catalytic activity/Vol] 26 U/L Normal 16 - 63 [facility] Comment on above: Performed By: #### 2 84039 ####[facility],[address] [place] [address] 31080 Anion gap [Moles/Vol] 7 mmol/L Low 10 - 20 [facility] Comment on above: Performed By: #### 2 94384 ####[facility],[address] [place] [address] 76285 AST [Catalytic activity/Vol] 22 U/L Normal 13 - 39 [facility] Comment on above: Performed By: #### 2 57702 ####[facility],[address] [place] [address] 91042 B/C RATIO 19 ratio Normal 0 - 30 [facility] Comment on above: Performed By: #### 2 32169 ####[facility],[address] [place] [address] 33430 Bilirubin [Mass/Vol] 0.3 mg/dL Normal 0.2 - 1.0 [facility] Comment on above: Performed By: #### 2 44857 ####[facility],[address] [place] [address] 30552 Calcium [Mass/Vol] 8.3 mg/dL Low 8.5 - 10.1 [facility] Comment on above: Performed By: #### 2 66332 ####[facility],[address] [place] [address] 44311 Chloride [Moles/Vol] 103 mmol/L Normal 98 - 107 [facility] Comment on above: Performed By: #### 2 60706 ####[facility],[address] [place] [address] 66271 CMP with eGFR Normal [facility] Comment on above: Result Comment: COMP REHENSIVE METABOLIC PANEL Performed By: #### 2 48979 ####[facility],[address] [place] [address] 88908 CO2 [Moles/Vol] 30.7 mmol/L Normal 21.0 - 32.0 [facility] Comment on above: Performed By: #### 2 28181 ####[facility],[address] [place] [address] 34231 Creatinine [Mass/Vol] 0.90 mg/dL Normal 0.55 - 1.02 [facility] Comment on above: Performed By: #### 2 02707 ####[facility],[address] [place] [address] 86094 GFR/1.73 sq M.predicted among non-blacks MDRD (S/P/Bld) [Vol rate/Area] mL/min/{1.73_m2} Normal 60 - 999 [facility] Comment on above: Performed By: #### 2 00568 ####[facility],[address] [place], [place] [id number] Result Comment: ACCO RDING TO THE NATIONAL KIDNEY DISEASE EDUCATION PROGRAM(NKDE), A NORMAL eGFR IS A VALUE GREATER THAN OR EQUAL TO 60 ML/MIN/1.73 SQ METERS. CHRONIC KIDNEY DISEASE: <60mL/MIN/1.73 SQ METERS KIDNEY FAILURE: <15mL/MIN/1.73 SQ METERS THIS TEST SHOULD ONLY BE USED FOR PATIENTS 18 YEARS OF AGE AND OLDER. Globulin (S) [Mass/Vol] 5.7 g/dL High 1.5 - 3.8 [facility] Comment on above: Performed By: #### 2 79718 ####[facility],[address] [place] [address] 95119 Glucose [Mass/Vol] 94 mg/dL Normal 74 - 106 [facility] Comment on above: Performed By: #### 2 32003 ####[facility],[address] [place] [address] 15065 Potassium [Moles/Vol] 3.5 mmol/L Normal 3.5 - 5.1 [facility] Comment on above: Performed By: #### 2 82371 ####[facility],[address] [place] [address] 68354 Protein [Mass/Vol] 7.7 g/dL Normal 6.4 - 8.2 [facility] Comment on above: Performed By: #### 2 72704 ####[facility],[address] [place] [address] 05047 Sodium [Moles/Vol] 137 mmol/L Normal 136 - 145 [facility] Comment on above: Performed By: #### 2 67679 ####[facility],[address] [place] [address] 48018 Urea nitrogen [Mass/Vol] 17 mg/dL Normal 7 - 18 [facility] Comment on above: Performed By: #### 2 75262 ####[facility],[address] [place] [address] [address] MAGNESIUMon 09-10-2024 Magnesium [Mass/Vol] 1.7 mg/dL Low 1.8 - 2.4 [facility] Comment on above: Performed By: #### 2 50916 #### [facility],[address] [place] [address] 37711 CBC + DIFFon 09-06-2024 Baso # 0.04 x10EE3/UL Normal 0.00 - 0.10 [facility] Comment on above: Performed By: #### 2 02375 #### [facility],[address] [place] [address] 42117 Basophils/100 WBC (Bld) 0.4 % Normal 0.0 - 2.0 [facility] Comment on above: Performed By: #### 2 21851 #### [place] [address] CBC + DIFF Normal [facility] Comment on above: Result Comment: CBC- COMPLETE BLOOD COUNT Performed By: #### 2 47811 #### [facility],[address] [place] [address] EO # 0.14 x10EE3/UL Normal 0.00 - 0.50 [facility] Comment on above: Performed By: #### 2 48478 #### [place] [address] Eosinophils/100 WBC (Bld) 1.3 % Normal 0.0 - 7.0 [facility] Comment on above: Performed By: #### 2 32572 #### [place] [address] Erythrocyte distribution width (RBC) [Ratio] 18.0 % High 12.0 - 15.6 [facility] Comment on above: Performed By: #### 2 93724 #### [place] [address] Hematocrit (Bld) [Volume fraction] 27.9 % Low 34.0 - 46.0 [facility] Comment on above: Performed By: #### 2 13133 #### [facility],[address] [place] [address] Hemoglobin (Bld) [Mass/Vol] 9.1 g/dL Low 12.0 - 16.0 [facility] Comment on above: Performed By: #### 2 37906 #### [facility],[address] [place] [address] Lymph # 1.68 x10EE3/UL Normal 0.80 - 2.80 [facility] Comment on above: Performed By: #### 2 39645 #### [facility] [place] [address] Lymphocytes/100 WBC (Bld) 16.1 % Low 20.0 - 45.0 [facility] Comment on above: Performed By: #### 2 46129 #### [facility],[address] [place] [address] MANUAL DIFF N/A Normal [facility] Comment on above: Performed By: #### 2 44604 #### [facility],[address] [place] [address] MCH (RBC) [Entitic mass] 27 pg Normal 27 - 33 [facility] Comment on above: Performed By: #### 2 30621 #### [facility],[address] [place] [address] MCHC 33 X10 3 Normal 32 - 36 [facility] Comment on above: Performed By: #### 2 35164 #### [facility],[address] [place] [address] MCV (RBC) [Entitic vol] 83 fL Normal 80 - 99 [facility] Comment on above: Performed By: #### 2 45787 #### [facility],[address] [place] [address] Iron # 0.87 x10EE3/UL Normal 0.20 - 1.00 [facility] Comment on above: Performed By: #### 2 85871 #### [facility],[address] [place] [address] MONOS % 8.4 % Normal 0.0 - 10.0 [facility] Comment on above: Performed By: #### 2 58745 #### [place] [address] Morphology Stan (Bld) [Interp] N/A Normal [facility] Comment on above: Performed By: #### 2 26246 #### [facility],[address],[place] [address] Neut # 7.69 x10EE3/UL High 1.50 - 7.10 [facility] Comment on above: Performed By: #### 2 80249 #### [facility],[address] [place] [address] 25947 Neutrophils/100 WBC (Bld) 73.8 % Normal 46.0 - 76.0 [facility] Comment on above: Performed By: #### 2 23537 #### [facility],[address] [place] [address] 26730 PLATELET 722 x10EE3/UL High 150 - 450 [facility] Comment on above: Performed By: #### 2 64483 #### [facility],[address] [place] [address] 27584 Platelet mean volume (Bld) [Entitic vol] 7.5 fL Normal 6.6 - 10.5 [facility] Comment on above: Result Comment: AUTO MATED DIFFERENTIAL Performed By: #### 2 51331 #### [facility],[address] [place] [address] 53591 RBC 3.37 x 10EE6/UL Low 4.10 - 5.30 [facility] Comment on above: Performed By: #### 2 89907 #### [facility],[address] [place] [address] 98160 WBC 10.4 x 10EE3/UL Normal 4.5 - 10.8 [facility] Comment on above: Performed By: #### 2 09052 #### [facility],[address] [place] [address] 96919 CMP with eGFRon 09-06-2024 AGE 38 years Normal [facility] Comment on above: Performed By: #### 2 86946 ####[facility],[address] [place] [address] 62694 Albumin [Mass/Vol] 1.9 g/dL Low 3.4 - 5.0 [facility] Comment on above: Performed By: #### 2 14924 ####[facility],[address] [place] [address] 56035 Albumin/Globulin [Mass ratio] 0.3 {ratio} Low 0.9 - 1.6 [facility] Comment on above: Performed By: #### 2 74238 ####[facility],[address] [place] [address] 08320 ALK PHOS 97 U/L Normal 46 - 116 [facility] Comment on above: Performed By: #### 2 02122 ####[facility],[address] [place] [address] 16999 ALT [Catalytic activity/Vol] 29 U/L Normal 16 - 63 [facility] Comment on above: Performed By: #### 2 02162 ####[facility],[address] [place] [address] 42123 Anion gap [Moles/Vol] 9 mmol/L Low 10 - 20 [facility] Comment on above: Performed By: #### 2 60211 ####[facility],[address] [place] [address] 83829 AST [Catalytic activity/Vol] 28 U/L Normal 13 - 39 [facility] Comment on above: Performed By: #### 2 70327 ####[facility],[address] [place] [address] 31057 B/C RATIO 21 ratio Normal 0 - 30 [facility] Comment on above: Performed By: #### 2 87305 ####[facility],[address] [place] [address] 79021 Bilirubin [Mass/Vol] 0.3 mg/dL Normal 0.2 - 1.0 [facility] Comment on above: Performed By: #### 2 77745 ####[facility],[address] [place] [address] 71131 Calcium [Mass/Vol] 8.3 mg/dL Low 8.5 - 10.1 [facility] Comment on above: Performed By: #### 2 25771 ####[facility],[address] [place] [address] 35941 Chloride [Moles/Vol] 102 mmol/L Normal 98 - 107 [facility] Comment on above: Performed By: #### 2 51524 ####[facility],[address] [place] [address] 91189 CMP with eGFR Normal [facility] Comment on above: Result Comment: COMP REHENSIVE METABOLIC PANEL Performed By: #### 2 98899 ####[facility],[address] [place] [address] 97571 CO2 [Moles/Vol] 29.5 mmol/L Normal 21.0 - 32.0 [facility] Comment on above: Performed By: #### 2 28087 ####[facility],[address] [place] [address] 32298 Creatinine [Mass/Vol] 0.84 mg/dL Normal 0.55 - 1.02 [facility] Comment on above: Performed By: #### 2 74014 ####[facility],[address] [place] [address] 44506 GFR/1.73 sq M.predicted among non-blacks MDRD (S/P/Bld) [Vol rate/Area] mL/min/{1.73_m2} Normal 60 - 999 [facility] Comment on above: Performed By: #### 2 21295 ####[facility],[address] [place], [place] [address] Result Comment: ACCO RDING TO THE NATIONAL KIDNEY DISEASE EDUCATION PROGRAM(NKDE), A NORMAL eGFR IS A VALUE GREATER THAN OR EQUAL TO 60 ML/MIN/1.73 SQ METERS. CHRONIC KIDNEY DISEASE: <60mL/MIN/1.73 SQ METERS KIDNEY FAILURE: <15mL/MIN/1.73 SQ METERS THIS TEST SHOULD ONLY BE USED FOR PATIENTS 18 YEARS OF AGE AND OLDER. Globulin (S) [Mass/Vol] 6.3 g/dL High 1.5 - 3.8 [facility] Comment on above: Performed By: #### 2 34899 ####[facility],[address] [place] [address] 49068 Glucose [Mass/Vol] 137 mg/dL High 74 - 106 [facility] Comment on above: Performed By: #### 2 54105 ####[facility],[address] [place] [address] 26885 Potassium [Moles/Vol] 3.8 mmol/L Normal 3.5 - 5.1 [facility] Comment on above: Performed By: #### 2 39769 ####[facility],[address] [place] [address] 18609 Protein [Mass/Vol] 8.2 g/dL Normal 6.4 - 8.2 [facility] Comment on above: Performed By: #### 2 10339 ####[facility],[address] [place] [address] 36219 Sodium [Moles/Vol] 137 mmol/L Normal 136 - 145 [facility] Comment on above: Performed By: #### 2 76482 ####[facility],[address] [place] [address] 95577 Urea nitrogen [Mass/Vol] 18 mg/dL Normal 7 - 18 [facility] Comment on above: Performed By: #### 2 70675 ####[facility],[address] [place] [address] 77699 MAGNESIUMon 09-06-2024 Magnesium [Mass/Vol] 2.0 mg/dL Normal 1.8 - 2.4 [facility] Comment on above: Performed By: #### 2 18935 ####[facility],[address] [place] [address] 29980 PHOSPHORUSon 09-06-2024 Phosphate [Mass/Vol] 3.6 mg/dL Normal 2.6 - 4.7 [facility] Comment on above: Performed By: #### 2 77347 #### [facility],[address] [place] [address] 13639 Culture, Blood (WB)on 2024 CUB Blood cultures x2, f rom two different sites No growth in 5 days. Normal [facility] Comment on above: Performed By: #### M 200.1000 ####[facility] [address] [place], [address] 12 Lead EKGon 08-20-2024 12 Lead EKG Normal [facility] Abdomen/Pelvis W IV Cont ONL Yon 08-20-2024 Abdomen/Pelvis W IV Cont ONLY Normal [facility] CBC W/Diff, Automatedon 07-29 STOMATOCYTE RARE Normal [facility] Comment on above: Performed By: #### L 500.4050, L700.6800, L100.0100, L501.2450, L505.5000 ####[facility] [address] [place], [address] Anisocytosis Ql (Bld) 2+ Normal [facility] Comment on above: Performed By: #### L 500.4050, L700.6800, L100.0100, L501.2450, L505.5000 ####[facility] [address] [place], [address] MICROCYTIC 1+ Normal [facility] Comment on above: Performed By: #### L 500.4050, L700.6800, L100.0100, L501.2450, L505.5000 ####[facility] [address] [place], [address] OVALOCYTE RARE Normal [facility] Comment on above: Performed By: #### L 500.4050, L700.6800, L100.0100, L501.2450, L505.5000 ####[facility] [address] [place], [address] POLYCHROMASIA 2+ Normal [facility] Comment on above: Performed By: #### L 500.4050, L700.6800, L100.0100, L501.2450, L505.5000 ####[facility] [address] [place], [address] CTA Chst, Abd, Pel W and/or WOon 08-20-2024 CTA Chst, Abd, Pel W and/or WO Normal [facility] Comprehensive Metabolic Prof ilon 08-20-2024 Albumin [Mass/Vol] 3.0 g/dL Low 3.2-5.0 [facility] Comment on above: Performed By: #### L 500.4050, L700.6800, L100.0100, L501.2450, L505.5000 ####[facility] [address] [place], [address] Albumin/Globulin [Mass ratio] 0.5 {ratio} Low 0.9-2.4 [facility] Comment on above: Performed By: #### L 500.4050, L700.6800, L100.0100, L501.2450, L505.5000 ####[facility] [address] [place], [address] ALK P 98 U/L Normal 45-117 [facility] Comment on above: Performed By: #### L 500.4050, L700.6800, L100.0100, L501.2450, L505.5000 ####[facility] [address] [place], [address] ALT [Catalytic activity/Vol] 15 U/L Normal 13-56 [facility] Comment on above: Performed By: #### L 500.4050, L700.6800, L100.0100, L501.2450, L505.5000 ####[facility] [address] [place], [address] AST [Catalytic activity/Vol] 20 U/L Normal 15-37 [facility] Comment on above: Performed By: #### L 500.4050, L700.6800, L100.0100, L501.2450, L505.5000 ####[facility] [address] [place], [address] Bilirubin [Mass/Vol] 0.30 mg/dL Normal 0.20-1.00 [facility] Comment on above: Result Comment: For patients on eltrombopag therapy, use of Dimension Holiday TBIL is not recommended. Performed By: #### L 500.4050, L700.6800, L100.0100, L501.2450, L505.5000 ####[facility] [address] [place], [address] BUN/CRE 10.9 RATIO Normal 10-20 [facility] Comment on above: Performed By: #### L 500.4050, L700.6800, L100.0100, L501.2450, L505.5000 ####[facility] [address] [place], [address] CA,Total 8.8 mg/dL Normal 8.5-10.1 [facility] Comment on above: Performed By: #### L 500.4050, L700.6800, L100.0100, L501.2450, L505.5000 ####[facility] [address] [place], [address] Chloride [Moles/Vol] 106 mmol/L Normal 98-107 [facility] Comment on above: Performed By: #### L 500.4050, L700.6800, L100.0100, L501.2450, L505.5000 ####[facility] [address] [place], [address] CO2 [Moles/Vol] 22.0 mmol/L Normal 21.0-32.0 [facility] Comment on above: Performed By: #### L 500.4050, L700.6800, L100.0100, L501.2450, L505.5000 ####[facility] [address] [place], [address] Creatinine [Mass/Vol] 1.29 mg/dL High 0.55-1.02 [facility] Comment on above: Result Comment: The validity of the calculated GFR GFRAA in patients over70 years has not been determined. Clinical correlation isessential. Performed By: #### L 500.4050, L700.6800, L100.0100, L501.2450, L505.5000 ####[facility] [address] [place], [address] ECRCL 71.07 ml/min Normal [facility] Comment on above: Performed By: #### L 500.4050, L700.6800, L100.0100, L501.2450, L505.5000 ####[facility] [address] [place], [address] EST GFR - AA 59 mL/min Low >60 [facility] Comment on above: Result Comment: Afri can Thai GFR Calc Performed By: #### L 500.4050, L700.6800, L100.0100, L501.2450, L505.5000 ####[facility] [address] [place], [address] GAP 11 Normal 5-15 [facility] Comment on above: Performed By: #### L 500.4050, L700.6800, L100.0100, L501.2450, L505.5000 ####[facility] [address] [place], [address] GFR/1.73 sq M.predicted among non-blacks MDRD (S/P/Bld) [Vol rate/Area] 48 mL/min/{1.73_m2} Low >60 [facility] Comment on above: Result Comment: Non- GFR Calc Performed By: #### L 500.4050, L700.6800, L100.0100, L501.2450, L505.5000 ####[facility] [address] [place], [address] Globulin (S) [Mass/Vol] 5.6 g/dL High 2.2-4.2 [facility] Comment on above: Performed By: #### L 500.4050, L700.6800, L100.0100, L501.2450, L505.5000 ####[facility] [address] [place], [address] Glucose [Mass/Vol] 187 mg/dL High 74-106 [facility] Comment on above: Result Comment: Fast ing Glucose result greater than or equal to 126 mg/dLsuggests DIABETES MELLITUS per A.D.A. criteria. Performed By: #### L 500.4050, L700.6800, L100.0100, L501.2450, L505.5000 ####[facility] [address] [place], [address] Potassium [Moles/Vol] 3.6 mmol/L Normal 3.5-5.1 [facility] Comment on above: Performed By: #### L 500.4050, L700.6800, L100.0100, L501.2450, L505.5000 ####[facility] [address] [place], [address] Sodium [Moles/Vol] 139 mmol/L Normal 136-145 [facility] Comment on above: Performed By: #### L 500.4050, L700.6800, L100.0100, L501.2450, L505.5000 ####[facility] [address] [place], [address] T PROT 8.6 g/dL High 6.4-8.2 [facility] Comment on above: Performed By: #### L 500.4050, L700.6800, L100.0100, L501.2450, L505.5000 ####[facility] [address] [place], [address] Urea nitrogen [Mass/Vol] 14 mg/dL Normal 7-18 [facility] Comment on above: Performed By: #### L 500.4050, L700.6800, L100.0100, L501.2450, L505.5000 ####[facility] [address] [place], [address] Emergency Department Summary on 08-20-2024 Emergency Department Summary Normal [facility] Lactic Acidon 08-20-2024 Lactate [Moles/Vol] 2.2 mmol/L Invalid Interpretation Code 0.4-1.9 [facility] Comment on above: Order Comment: Y Result Comment: Crit ical Result(s) Called at: 06:12:44 08/20/2024 by:Rossana Wood. Results read back by same. Performed By: #### L 503.6005 ####[facility] [address] [place], [address] Lipaseon 08-20-2024 Lipase [Catalytic activity/Vol] 26 U/L Low 73-393 [facility] Comment on above: Performed By: #### L 500.4050, L700.6800, L100.0100, L501.2450, L505.5000 ####[facility] [address] [place], [address] Partial Thromboplast Timeon 08-20-2024 aPTT Coag (Bld) [Time] 20.9 s Low 24.1-36.2 [facility] Comment on above: Performed By: #### L 300.3900, L300.4310 ####[facility] [address] [place], [address] ,Serum,hCG Quali.on 08-20-2024 HCG, SERUM QUAL Negative Normal [facility] Comment on above: Performed By: #### L 500.4050, L700.6800, L100.0100, L501.2450, L505.5000 ####[facility] [address] [place], [address] Prothrombin Time w/INRon INR Coag (PPP) [Relative time] 1.2 {INR} Normal [facility] Comment on above: Performed By: #### L 300.3900, L300.4310 ####[facility] [address] [place], [address] PT Coag (PPP) [Time] 14.9 s Normal 11.7-14.9 [facility] Comment on above: Performed By: #### L 300.3900, L300.4310 ####[facility] [address] [place], [address] Urinalysis, Completeon 08-20 BACTERIA 3+ /hpf Normal None Seen [facility] Comment on above: Order Comment: CLEAN CATCH Performed By: #### L 400.0001 ####[facility] [address] [place], [address] EPI,SQUAMOUS 0-5 SEEN Normal 5-10 [facility] Comment on above: Order Comment: CLEAN CATCH Performed By: #### L 400.0001 ####[facility] [address] [place], [address] RBC 0-5 SEEN Normal 0-5 [facility] Comment on above: Order Comment: CLEAN CATCH Performed By: #### L 400.0001 ####[facility] [address] [place], [address] Mucus Ql (Urine sed) 0 SEEN Normal [facility] Comment on above: Order Comment: CLEAN CATCH Performed By: #### L 400.0001 ####[facility] [address] [place], [address] WBC 0 SEEN Normal 0-5 [facility] Comment on above: Order Comment: CLEAN CATCH Performed By: #### L 400.0001 ####[facility] [address] [place], [address] Urine Drug Screen (VISTA)on 08-20-2024 AMPHETAMINES Negative Normal <1000 ng/mL [facility] Comment on above: Performed By: #### L 500.4050, L700.6800, L100.0100, L501.2450, L505.5000 ####[facility] [address] [place], [address] BARBITIURATES Negative Normal < 200 ng/mL [facility] Comment on above: Performed By: #### L 500.4050, L700.6800, L100.0100, L501.2450, L505.5000 ####[facility] [address] [place], [place], [phone] BENZODIAZIPINE Negative Normal < 200 ng/mL [facility] Comment on above: Performed By: #### L 500.4050, L700.6800, L100.0100, L501.2450, L505.5000 ####[facility] [address] [place], [address] COCAINE Negative Normal < 300 ng/mL [facility] Comment on above: Performed By: #### L 500.4050, L700.6800, L100.0100, L501.2450, L505.5000 ####[facility] [address] [place], [address] ECSTACY Negative Normal < 500 ng/mL [facility] Comment on above: Performed By: #### L 500.4050, L700.6800, L100.0100, L501.2450, L505.5000 ####[facility] [address] [place], [address] METHADONE Negative Normal < 300 ng/mL [facility] Comment on above: Performed By: #### L 500.4050, L700.6800, L100.0100, L501.2450, L505.5000 ####[facility] [address] [place], [address] OPIATES Positive Abnormal < 300 ng/mL [facility] Comment on above: Performed By: #### L 500.4050, L700.6800, L100.0100, L501.2450, L505.5000 ####[facility] [address] [place], [address] PCP Negative Normal < 25 ng/mL [facility] Comment on above: Performed By: #### L 500.4050, L700.6800, L100.0100, L501.2450, L505.5000 ####[facility] [address] [place], [address] THC Negative Normal < 50 ng/mL [facility] Comment on above: Performed By: #### L 500.4050, L700.6800, L100.0100, L501.2450, L505.5000 ####[facility] [address] [place], [address] VISTA UDS PH 7 Normal [facility] Comment on above: Performed By: #### L 500.4050, L700.6800, L100.0100, L501.2450, L505.5000 ####[facility] [address] [place], [address] Emergency Department Summary on 08-16-2024 Emergency Department Summary Normal [facility] Foot min 3 Viewson 5 Foot min 3 Views Normal [facility] Comprehensive metabolic 2000 panelon 08-08-2024 Albumin [Mass/Vol] 3.8 g/dL Low 3.9 - 4.9 g/dL [facility] ALP [Catalytic activity/Vol] 109 U/L 34 - 123 U/L [facility] ALT [Catalytic activity/Vol] 13 U/L 7 - 38 U/L [facility] Anion gap [Moles/Vol] 12 mmol/L 8 - 15 mmol/L [facility] AST [Catalytic activity/Vol] 16 U/L 13 - 35 U/L [facility] Bilirubin [Mass/Vol] 0.3 mg/dL 0.2 - 1.3 mg/dL [facility] Calcium [Mass/Vol] 9.3 mg/dL 8.5 - 10. 2 mg/dL [facility] Chloride [Moles/Vol] 104 mmol/L 98 - 107 mmol/L [facility] CO2 [Moles/Vol] 23 mmol/L 22 - 30 mmol/L [facility] Creatinine [Mass/Vol] 1.01 mg/dL High 0.58 - 0.96 mg/dL [facility] GFR/1.73 sq M.predicted among non-blacks MDRD (S/P/Bld) [Vol rate/Area] 72 mL/min/{1.73_m2} - PINF [facility] Comment on above: Estimated Glomerular Filtration [...] [Mass/Vol] 85 mg/dL 74 - 99 mg/dL [facility] Comment on above: The [place] Di[employer] s Association (ADA) provides guidance for [...] Standards of Medical Care in Diabetes 2016, [place] [employer]. Diabetes Care. 2016.39(Suppl 1). Potassium [Moles/Vol] 4 mmol/L 3.7 - 5.1 mmol/L [facility] Protein [Mass/Vol] 8.1 g/dL High 6.3 - 8.0 g/dL [facility] Sodium [Moles/Vol] 139 mmol/L 136 - 144 mmol/L [facility] Urea nitrogen [Mass/Vol] 6 mg/dL Low 7 - 21 mg/dL [facility] Iron and Iron binding capaci ty panelon 08-08-2024 Iron [Mass/Vol] 19 ug/dL Low 41 - 186 ug/dL [facility] Iron binding capacity [Mass/Vol] 483 ug/dL High 232 - 386 ug/dL [facility] Iron/TIBC [Molar ratio] 3.9 % Low 15.0 - 57.0 % [facility] No Panel Informationon 08-08 Interpretation and review of laboratory results Abnormal [facility] CBC W Auto Differential pane l (Bld)on 08-07-2024 Basophils (Bld) [#/Vol] 0.06 10*3/uL [facility] Basophils/100 WBC (Bld) 1 % [facility] Differential cell count method Nom (Bld) Auto [facility] Eosinophils (Bld) [#/Vol] 0.19 10*3/uL [facility] Eosinophils/100 WBC (Bld) 3.3 % [facility] Erythrocyte distribution width (RBC) [Ratio] 19.2 % High 11.5 - 15.0 % [facility] Hematocrit (Bld) [Volume fraction] 31.5 % Low 36.0 - 46.0 % [facility] Hemoglobin (Bld) [Mass/Vol] 8.5 g/dL Low 11.5 - 15.5 g/dL [facility] Immature granulocytes (Bld) [#/Vol] 0.03 10*3/uL [facility] Immature granulocytes/100 WBC (Bld) 0.5 % [facility] Interpretation and review of laboratory results Abnormal [facility] Lymphocytes (Bld) [#/Vol] 1.04 10*3/uL [facility] Lymphocytes/100 WBC (Bld) 17.8 % [facility] MCH (RBC) [Entitic mass] 19.3 pg Low 26.0 - 34.0 pg [facility] MCHC (RBC) [Mass/Vol] 27 g/dL Low 30.5 - 36.0 g/dL [facility] MCV (RBC) [Entitic vol] 71.4 fL Low 80.0 - 100.0 fL [facility] Monocytes (Bld) [#/Vol] 0.4 10*3/uL [facility] Monocytes/100 WBC (Bld) 6.9 % [facility] Neutrophils (Bld) [#/Vol] 4.11 10*3/uL [facility] Neutrophils/100 WBC (Bld) 70.5 % [facility] Nucleated RBC (Bld) [#/Vol] [facility] Nucleated RBC/100 WBC (Bld) [Ratio] 0 % /100 WBC [facility] Platelet mean volume (Bld) [Entitic vol] 9 fL 9.0 - 12.7 fL [facility] Platelets (Bld) [#/Vol] 602 10*3/uL High [facility] RBC (Bld) [#/Vol] 4.41 10*6/uL 3.90 - 5.2 0 m/uL [facility] WBC (Bld) [#/Vol] 5.83 10*3/uL [facility] HbA1c (Bld)on 08-07-2024 Average glucose Estimated from glycated hemoglobin (Bld) [Mass/Vol] 123 mg/dL [facility] Comment on above: eAG: (Estimated aver age glucose) is a calculated value from HgbA1c and is risk control field representative of the average blood glucose level in the last 2-3 month period. HbA1c (Bld) [Mass fraction] 5.9 % High 4.3 - 5.6 % [facility] Comment on above: [place] Diabetes As sociation guidelines indicate that patients with HgbA1c in the range 5.7-6.4% are at increased risk for development of diabetes, and intervention by lifestyle modification may be beneficial. HgbA1c greater or equal to 6.5% is considered diagnostic of diabetes. Interpretation and review of laboratory results Abnormal [facility] 12 Lead EKGon 07-30-2024 12 Lead EKG Normal [facility] Basic Metabolic Profile (BMP )on 07-30-2024 Potassium [Moles/Vol] 2.7 mmol/L Invalid Interpretation Code 3.5-5.1 [facility] Comment on above: Result Comment: RESU LTS CALLED TO NONI 07/30/24 1706 Jackelyn Draper.REPORT READ BACK BY . SAME AMENDED REPORT 07/30/241705 K previously reported as: 2.7 *L mmol/L Performed By: #### L 700.6800, L100.0100, L500.2500, L300.4310, L300.3900 ####[facility] [address] [place], [address] CBC W/Diff, Automatedon -2024 Absolute Lymph 1.10 X10 3/uL Normal 0.83-4.51 [facility] Comment on above: Performed By: #### L 700.6800, L100.0100, L500.2500, L300.4310, L300.3900 ####[facility] [address] [place], [address] Absolute Neut 8.0 X10 3/uL High 2.0-7.7 [facility] Comment on above: Performed By: #### L 700.6800, L100.0100, L500.2500, L300.4310, L300.3900 ####[facility] [address] [place], [address] Basophils/100 WBC (Bld) 0.6 % Normal 0-1 [facility] Comment on above: Performed By: #### L 700.6800, L100.0100, L500.2500, L300.4310, L300.3900 ####[facility] [address] [place], [address] Eosinophils/100 WBC (Bld) 1.6 % Normal 0-5 [facility] Comment on above: Performed By: #### L 700.6800, L100.0100, L500.2500, L300.4310, L300.3900 ####[facility] [address] [place], [address] Erythrocyte distribution width (RBC) [Ratio] 18.5 % High 11.6-14.6 [facility] Comment on above: Performed By: #### L 700.6800, L100.0100, L500.2500, L300.4310, L300.3900 ####[facility] [address] [place], [address] Hematocrit (Bld) [Volume fraction] 29.3 % Low 37-47 [facility] Comment on above: Performed By: #### L 700.6800, L100.0100, L500.2500, L300.4310, L300.3900 ####[facility] [address] [place], [address] Hemoglobin (Bld) [Mass/Vol] 8.3 g/dL Low 12.0-15.0 [facility] Comment on above: Performed By: #### L 700.6800, L100.0100, L500.2500, L300.4310, L300.3900 ####[facility] [address] [place], [address] IG% 0.400 Normal 0.0-0.9 [facility] Comment on above: Result Comment: IG% - Immature Granulocytes (promyelocytes, myelocytes andmetamyelocytes) > 1% indicates that a LEFT SHIFT is Present. Performed By: #### L 700.6800, L100.0100, L500.2500, L300.4310, L300.3900 ####[facility] [address] [place], [address] Lymphocytes/100 WBC (Bld) 11.0 % Low 19-41 [facility] Comment on above: Performed By: #### L 700.6800, L100.0100, L500.2500, L300.4310, L300.3900 ####[facility] [address] [place], [address] MCH (RBC) [Entitic mass] 19.6 pg Low 27.0-32.0 [facility] Comment on above: Performed By: #### L 700.6800, L100.0100, L500.2500, L300.4310, L300.3900 ####[facility] [address] [place], [address] MCHC (RBC) [Mass/Vol] 28.3 g/dL Low 32-36 [facility] Comment on above: Performed By: #### L 700.6800, L100.0100, L500.2500, L300.4310, L300.3900 ####[facility] [address] [place], [address] MCV (RBC) [Entitic vol] 69.1 fL Low 81-99 [facility] Comment on above: Performed By: #### L 700.6800, L100.0100, L500.2500, L300.4310, L300.3900 ####[facility] [address] [place], [address] Monocytes/100 WBC (Bld) 7.1 % Normal 0-10 [facility] Comment on above: Performed By: #### L 700.6800, L100.0100, L500.2500, L300.4310, L300.3900 ####[facility] [address] [place], [address] Neutrophils/100 WBC (Bld) 79.3 % High 47-70 [facility] Comment on above: Performed By: #### L 700.6800, L100.0100, L500.2500, L300.4310, L300.3900 ####[facility] [address] [place], [address] Nucleated RBC (Bld) [#/Vol] 0 10*3/uL Normal 0-5 [facility] Comment on above: Performed By: #### L 700.6800, L100.0100, L500.2500, L300.4310, L300.3900 ####[facility] [address] [place], [address] Platelet mean volume (Bld) [Entitic vol] 8.9 fL Normal 6.2-12.0 [facility] Comment on above: Performed By: #### L 700.6800, L100.0100, L500.2500, L300.4310, L300.3900 ####[facility] [address] [place], [address] Platelets (Bld) [#/Vol] 466 10*3/uL High 150-450 [facility] Comment on above: Performed By: #### L 700.6800, L100.0100, L500.2500, L300.4310, L300.3900 ####[facility] [address] [place], [address] RBC (Bld) [#/Vol] 4.24 10*6/uL Normal 4.2-5.4 [facility] Comment on above: Performed By: #### L 700.6800, L100.0100, L500.2500, L300.4310, L300.3900 ####[facility] [address] [place], [address] RDW SD 45.1 fl High 35.1-43.9 [facility] Comment on above: Performed By: #### L 700.6800, L100.0100, L500.2500, L300.4310, L300.3900 ####[facility] [address] [place], [address] WBC (Bld) [#/Vol] 10.0 10*3/uL Normal 4.4-11.0 [facility] Comment on above: Performed By: #### L 700.6800, L100.0100, L500.2500, L300.4310, L300.3900 ####[facility] [address] [place], [place], [id number] Chest 1 View (Portable)on Chest 1 View (Portable) Normal [facility] Emergency Department Summary on 07-30-2024 Emergency Department Summary Normal [facility] Ferritinon 07-30-2024 Ferritin [Mass/Vol] 11 ng/mL Normal 8-252 [facility] Comment on above: Performed By: #### L 503.6030, L503.6550 ####[facility] [address] [place], [place], [id number] Iron+Iron Binding Capacityon 07-30-2024 Iron [Mass/Vol] 12 ug/dL Low 50-170 [facility] Comment on above: Performed By: #### L 503.6030, L503.6550 ####[facility] [address] [place], [place], [address] IRON SATURATION 2.5 Low 15.0-55.0 [facility] Comment on above: Performed By: #### L 503.6030, L503.6550 ####[facility] [address] [place], [address] TIBC 480 ug/dL High 250-450 [facility] Comment on above: Performed By: #### L 503.6030, L503.6550 ####[facility] [address] [place], [address] Partial Thromboplast Timeon 07-30-2024 aPTT Coag (Bld) [Time] 28.8 s Normal 24.1-36.2 [facility] Comment on above: Performed By: #### L 700.6800, L100.0100, L500.2500, L300.4310, L300.3900 ####[facility] [address] [place], [address] ,Serum,hCG Quali.on 07-30-2024 HCG, SERUM QUAL Negative Normal [facility] Comment on above: Performed By: #### L 700.6800, L100.0100, L500.2500, L300.4310, L300.3900 ####[facility] [address] [place], [place], [id number] Prothrombin Time w/INRon INR Coag (PPP) [Relative time] 1.1 {INR} Normal [facility] Comment on above: Performed By: #### L 700.6800, L100.0100, L500.2500, L300.4310, L300.3900 ####[facility] [address] [place], [place], [id number] PT Coag (PPP) [Time] 14.0 s Normal 11.7-14.9 [facility] Comment on above: Performed By: #### L 700.6800, L100.0100, L500.2500, L300.4310, L300.3900 ####[facility] [address] 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 Date Time Provider Department 10/01/22 SHANDRA OKEEFE MMPRPO During your visit today, we recorded the following information about you: Shandra Okeefe RN 10/22/2022 9:51 AM Addendum Faxed PA and associated clinicals to [facility] today at [phone]. 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 All information is from patient report except when noted. This evaluation is NOT intended for forensic, disability or child custody purposes. AGE: [age] year old RACE: White REFERRAL SOURCE: Psychiatrist - Clayton Angeles CNP ([facility]). Last visit 08/16/22 CHIEF COMPLAINT: Treatment resistant [...] The patient was born and raised in [place]. The patient completed Some college. The patient described their childhood as 'ideal'. The patient lives with a roommate in an house (owned by roommate). Feels safe. No guns The patient has 1 child (10yrs). Shared custody with father. 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 No disability. Service: None Legal: 18 - 2 charges of drug trafficking. No nursing home time. No DUI/TRAVON Trauma/Abuse: Denies Psychosocial Supports: [...] psych meds in 2017 2) 2017 @ [place] for SI (pink slipped from crisis line) 3) 2021 - [place] for SI # of past suicide attempts and methods used:OD in 2017 Intensive outpatient program: 2018 at [place] - didn't think it was helpful Residential treatment: Denies Prior Diagnosis: Anxiety Disorder, Bipolar Affective Disorder, Borderline Personality Disorder, and Panic Disorder Prior Provider: Followed by PCP Fredrick Boland. Referred to current psych provider. Therapist: Followed at [facility] ([facility]) by [facility]. Monthly check-in Past psychotherapy experience: Extensive Current Fueler: None Electroconvulsive therapy (ECT): Denies Transcranial magnetic [...] start on next (more content not included)... [facility] HISTORY PHYSICALon 3 HISTORY PHYSICAL HNO ID: [id number] Author: Esa Velásquez APRN.TOW MATE Service: ? Author Type: Nurse Practitioner Type: [...] RACE: White REFERRAL SOURCE: Psychiatrist - Clayton Angeles CNP ([facility]). Last visit 08/16/22 CHIEF COMPLAINT: Treatment resistant [...] The patient was born and raised in [place]. The patient completed Some college. The patient described their childhood as 'ideal'. The patient lives with a roommate in an house (owned by roommate). Feels safe. No guns The patient has 1 child (10yrs). Shared custody with father. 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 No disability. Service: None Legal: 18 - 2 charges of drug trafficking. No nursing home time. No DUI/TRAVON Trauma/Abuse: Denies Psychosocial Supports: [...] psych meds in 2017 2) 2017 @ [place] for SI (pink slipped from crisis line) 3) 2021 - [place] for SI # of past suicide attempts and methods used:OD in 2017 Intensive outpatient program: 2018 at [place] - didn't think it was helpful Residential treatment: Denies Prior Diagnosis: Anxiety Disorder, Bipolar Affective Disorder, Borderline Personality Disorder, and Panic Disorder Prior Provider: Followed by PCP Fredrick Boland. Referred to current psych provider. Therapist: Followed at [facility] (practice) by [facility]. Monthly check-in Past psychotherapy experience: Extensive Current Fueler: None Electroconvulsive therapy (ECT): Denies Transcranial magnetic [...] week and st (more content not included)... [facility] Lili 08-24-2022 [facility] Telephone (PSYRL) MAYANKDALY Matson ([id number]) 1985 F T Date Time Provider Department 08/24/22 ARIELLA CORTES During your visit today, we recorded the following information about you: Ariella Cortes RN 08/24/2022 1:42 PM Signed INTERNAL ([facility]) ECT Referral Received: 08/18/22 [facility] From: Clayton Angeles @ [facility] ECT Eval: TBD Left voicemail requesting callback in ECT office at [phone] to schedule ECT eval. Awaiting patient response. Ariella Cortes RN 08/30/2022 12:24 PM Addendum Scheduled ECT Eval scheduled on 09/30/22 @ 10am with Esa Didier Patient encouraged to contact RN Hotel Reservationist at [phone] should any questions or concerns arise between now and then. Ariella Cortes RN 09/30/2022 3:22 PM Signed Patient to receive ECT and related care @ [facility]. MM ECT RN notified AND aware. INTERNAL ([facility]) ECT Referral Received: 08/18/22 - [facility] From: Clayton Angeles @ [facility] ECT Eval: 09/30/22 with Esa Velásquez ECT [...] Encounter Status:Closed by ARIELLA CORTES on 08/24/[address] [facility] TOX SCREEN ROUT URon 022 Amphetamines Confirm (U) [Mass/Vol] Negative Negative [facility] Barbiturates Urine Negative Negative [facility] Benzodiazepines Urine Negative Negative [facility] Cannabinoids, Urine Positive Abnormal Negative [facility] Cocaine Ql (U) Negative Negative [facility] Ethanol (U) [Mass/Vol] <11 mg/dL [facility] Opiates Screen Ql (U) Negative Negative [facility] oxyCODONE cutoff Screen (U) [Mass/Vol] Negative Negative [facility] Phencyclidine Ql (U) Negative Negative [facility] HEP B SURFACE ANTIGENon 04-28 HEP B SURFACE ANTIGEN Non-Reactive Normal [facility] Comment on above: Result Comment: NONR EACTIVE - NEGATIVE FOR HEPATITIS B SURFACE ANTIGEN Performed By: #### H BSAG, HCVAB, HIV #### [address] [address] HEPATITIS C ABon 05-25-2021 HEPATITIS C AB Non-Reactive Normal [facility] Comment on above: Result Comment: NONR EACTIVE - <0.80 INDEX IS CONSIDERED NEGATIVE FOR IGG ANTIBODIES TO HCV. Performed By: #### M N, ALC #### [address] [address] HIV AG/AB COMBOon 05-25-2021 HIV AG/AB COMBO Non-Reactive Normal [facility] Comment on above: Result Comment: NONR EACTIVE - NEGATIVE FOR ANTIBODIES TO HIV-1 AND HIV-2 AND p24 ANTIGEN. Performed By: #### M N, ALC #### [address] [address] ALCOHOLon 05-21-2021 Ethanol [Mass/Vol] 169.0 mg/dL Normal [facility] Comment on above: Result Comment: < 3 mg/dl NONE DETECTED 50-100 mg/dl MAY SHOW SIGNS OF INTOXICATION 300-500 mg/dl COMATOSE LEVEL Performed By: #### M N, ALC #### [address] [address] CBC with AUTO DIFFon 021 BAS0 % 0.30 % Normal 0-2 [facility] Comment on above: Performed By: #### C BC, DIFF (MANUAL) #### [address] [address] Basophils (Bld) [#/Vol] 0.0 10*3/uL Normal 0-0.1 [facility] Comment on above: Performed By: #### C BC, DIFF (MANUAL) #### [address] [address] Eosinophils (Bld) [#/Vol] 0.0 10*3/uL Normal 0.0-1.80 [facility] Comment on above: Performed By: #### C BC, DIFF (MANUAL) #### [address] [place] [address] Eosinophils/100 WBC (Bld) 0.1 % Normal 0-8 [facility] Comment on above: Performed By: #### C BC, DIFF (MANUAL) #### [address] [address] GRAN # 11.7 K/uL High 2.2-9.1 [facility] Comment on above: Performed By: #### C BC, DIFF (MANUAL) #### [address] [place] [address] GRAN % 79.6 % Normal 42-80 [facility] Comment on above: Performed By: #### C BC, DIFF (MANUAL) #### [address] [address] Hematocrit (Bld) [Volume fraction] 42.0 % Normal 37.0-47.0 [facility] Comment on above: Performed By: #### C BC, DIFF (MANUAL) #### [address] [address] Hemoglobin (Bld) [Mass/Vol] 14.3 g/dL Normal 12.0-16.0 [facility] Comment on above: Performed By: #### C BC, DIFF (MANUAL) #### [address] [address] Lymphocytes (Bld) [#/Vol] 2.2 10*3/uL Normal 1.0-4.0 [facility] Comment on above: Performed By: #### C BC, DIFF (MANUAL) #### [address] [address] Lymphocytes/100 WBC (Bld) 15.1 % Low 16-48 [facility] Comment on above: Performed By: #### C BC, DIFF (MANUAL) #### [address] [address] MCV (RBC) [Entitic vol] 93.2 fL Normal 80-97 [facility] Comment on above: Performed By: #### C BC, DIFF (MANUAL) #### [address] [address] MEAN CORPUSCULAR HGB 31.8 pg Normal 26.0-32.0 [facility] Comment on above: Performed By: #### C BC, DIFF (MANUAL) #### [address] [place] [address] MEAN CORPUSCULAR HGB CONC 34.1 g/dL Normal 31.0-36.0 [facility] Comment on above: Performed By: #### C BC, DIFF (MANUAL) #### [address] [address] Monocytes (Bld) [#/Vol] 0.7 10*3/uL Normal 0.1-1.7 [facility] Comment on above: Performed By: #### C BC, DIFF (MANUAL) #### [address] [place] [address] Monocytes/100 WBC (Bld) 4.9 % Normal 3-9 [facility] Comment on above: Performed By: #### C BC, DIFF (MANUAL) #### [address] [address] Platelet mean volume (Bld) [Entitic vol] 6.9 fL Normal 6.6-10.5 [facility] Comment on above: Performed By: #### C BC, DIFF (MANUAL) #### [address] [place] [address] Platelets (Bld) [#/Vol] 418 10*3/uL Normal 140-450 [facility] Comment on above: Performed By: #### C BC, DIFF (MANUAL) #### [address] [address] RBC (Bld) [#/Vol] 4.51 10*6/uL Normal 4.20-5.50 [facility] Comment on above: Performed By: #### C BC, DIFF (MANUAL) #### [address] [address] RED CELL DISTRI WIDTH 13.0 % Normal 11.0-15.5 [facility] Comment on above: Performed By: #### C BC, DIFF (MANUAL) #### [address] [place] [address] WBC (Bld) [#/Vol] 14.7 10*3/uL High 4.0-11.0 [facility] Comment on above: Performed By: #### C BC, DIFF (MANUAL) #### [address] [place] [address] COMPREHENSIVE METABOLIC PANE Derick 11-25-2021 Albumin [Mass/Vol] 3.5 g/dL Normal 3.4-5.0 [facility] Comment on above: Performed By: #### M N, ALC #### [facility] [address] [place] [address] Albumin/Globulin [Mass ratio] 0.9 {ratio} Low 1.1-1.8 [facility] Comment on above: Performed By: #### M N, ALC #### [facility] [address] [place] [address] ALP [Catalytic activity/Vol] 64 U/L Normal 45-117 [facility] Comment on above: Performed By: #### M N, ALC #### [facility] [address] [place] [address] ALT [Catalytic activity/Vol] 29 U/L Normal 12-78 [facility] Comment on above: Performed By: #### M N, ALC #### [facility] [address] [place] [address] Anion gap [Moles/Vol] 9.0 mmol/L Low 11-23 [facility] Comment on above: Performed By: #### M N, ALC #### [facility] [address] [place] [address] AST [Catalytic activity/Vol] 20 U/L Normal 15-37 [facility] Comment on above: Performed By: #### M N, ALC #### [facility] [address] [place] [address] Bilirubin [Mass/Vol] 0.3 mg/dL Normal 0.2-1.0 [facility] Comment on above: Performed By: #### M N, ALC #### [facility] [address] [place] [address] Calcium [Mass/Vol] 8.5 mg/dL Normal 8.5-10.1 [facility] [facility] Comment on above: Performed By: #### M N, ALC #### [facility] [address] [place] [address] Chloride [Moles/Vol] 107 mmol/L Normal 98-107 [facility] Comment on above: Performed By: #### M N, ALC #### [facility] [address] [place] [address] CO2 [Moles/Vol] 27.0 mmol/L Normal 21-32 [facility] Comment on above: Performed By: #### M N, ALC #### [address] [place] [address] Creatinine [Mass/Vol] 0.80 mg/dL Normal 0.55-1.02 [facility] Comment on above: Performed By: #### M N, ALC #### [facility] [address] [place] [address] GFR > 60.0 [facility] Comment on above: Performed By: #### M N, ALC #### [address] [place] [address] GFR AM > 60.0 [facility] Comment on above: Result Comment: THE NORMAL LEVEL OF GFR VARIES ACCORDING TO AGE, SEX, AND BODY SIZE. A GFR LEVEL OF LESS THAN 60 ML/MIN REPRESENTS LOSS OF THE ADULT LEVEL OF NORMAL KIDNEY FUNCTION. Performed By: #### M N, ALC #### [address] [place] [address] Globulin (S) [Mass/Vol] 4.2 g/dL Normal 2.5-4.6 [facility] Comment on above: Performed By: #### M N, ALC #### [address] [place] [address] Glucose [Mass/Vol] 114 mg/dL High 70-100 [facility] Comment on above: Performed By: #### M N, ALC #### [address] [place] [address] Potassium [Moles/Vol] 3.3 mmol/L Low 3.5-5.1 [facility] Comment on above: Performed By: #### M N, ALC #### [address] [place] [address] Protein [Mass/Vol] 7.7 g/dL Normal 6.0-8.3 [facility] Comment on above: Performed By: #### M N, ALC #### [address] [place] [address] Sodium [Moles/Vol] 140 mmol/L Normal 136-145 [facility] Comment on above: Performed By: #### M N, ALC #### [address] [place] [address] Urea nitrogen [Mass/Vol] 6.0 mg/dL Low 7-18 [facility] Comment on above: Performed By: #### M N, ALC #### [address] [place] [address] CPKon 05-21-2021 CPK 359 U/L High 26-192 [facility] Comment on above: Performed By: #### C PK #### [facility] [address] [place] [address] DIFFERENTIALon 05-21-2021 IMMATURE GRANS NONE SEEN Normal [facility] Comment on above: Performed By: #### C BC, DIFF (MANUAL) #### [address] [place] [address] PLATELET ESTIMATE NORMAL Normal [facility] Comment on above: Performed By: #### C BC, DIFF (MANUAL) #### [address] [place] [address] RBC morphology finding Nom (Bld) ESSENTIALLY NORMAL Normal [facility] Comment on above: Performed By: #### C BC, DIFF (MANUAL) #### [address] [place] [address] Band form neutrophils/100 WBC (Bld) 6 % Normal 0-10 [facility] Comment on above: Performed By: #### C BC, DIFF (MANUAL) #### [address] [place] [address] Eosinophils/100 WBC (Bld) 1 % Normal 0-8 [facility] Comment on above: Performed By: #### C BC, DIFF (MANUAL) #### [address] [place] [address] Lymphocytes/100 WBC (Bld) 11 % Low 16-48 [facility] Comment on above: Performed By: #### C BC, DIFF (MANUAL) #### [address] [place] [address] Monocytes/100 WBC (Bld) 6 % Normal 3-9 [facility] Comment on above: Performed By: #### C BC, DIFF (MANUAL) #### [address] [place] [address] Neutrophils/100 WBC (Bld) 76 % Normal 42-80 [facility] Comment on above: Performed By: #### C BC, DIFF (MANUAL) #### [address] [place] [address] TOTAL CELLS COUNTED 100 #CELLS Normal [facility] Comment on above: Performed By: #### C BC, DIFF (MANUAL) #### [place] [address] [address] ED.PDOCon 05-21-2021 ED.PDOC DALY VEANS [id number] Attending provider: HELLEN ER [id number] Bebeto Tafoya 1985 35 DOS: 05/21/21 Hx/Exam [...] suicidal 05/21/21 06:56 (Bebeto Tafoya) 05/21/21 09:51 [place]OVER[place] Female [id number] Ordering physician: Yohana Bennett LOC:ER [id number] Attending physician: 1985 35 DO S: 05/21/21 Acc#: [id number] Exam/Proc: HEAD W/O CONTRAST Dept: COMPUTED TOMOGRAPHY EXAMINATION: CT OF THE HEAD WITHOUT URKEANPE33/25/2021 8:[address] HEAD/BRAIN WITHOUT CONTRAST COMPARISON: [...] 05/21/2021 8:33:15 AM EST Workstation ID : [id number] REPORT SIGNATURE ON FILE Electronically Signed Date/Time: [...] police report and notes to this point. [place] slip written based on patient self-harm, statement of wanti (more content not included)... [facility] HCG URINEon 05-21-2021 Beta HCG ( test) Ql (U) Negative [facility] Comment on above: Order Comment: What Is Urine Source? Clean Catch [place] Performed By: #### H CGUR #### [address] [address] HEAD W/O CONTRASTon 05-21-20 21 HEAD W/O CONTRAST DALY EVANS [id number] Ordering physician: Yohana Bennett LOC:ER [id number] Attending physician: 1985 35 DO S: 05/21/21 Acc#: [id number] Exam/Proc: HEAD W/O CONTRAST Dept: COMPUTED TOMOGRAPHY EXAMINATION: CT OF THE HEAD WITHOUT WRMNAEAG07/25/2021 8:[address] HEAD/BRAIN WITHOUT CONTRAST COMPARISON: [...] 05/21/2021 8:33:15 AM EST Workstation ID : [id number] REPORT SIGNATURE ON FILE Electronically Signed Date/Time: 05/21/21832 Dictated Date/time: 05/21/21829 CC: Normal [facility] URINE DRUG SCREENon 05-21-20 21 AMPHETAMINES Positive Abnormal [facility] Comment on above: Order Comment: What Is Urine Source? Random Performed By: #### U DRGS #### [facility] [address] [place] [address] Other Comment: URINE DRUG SCREENS ARE FOR [...] and can be ordered separately. BARBITURATES Negative [facility] Comment on above: Order Comment: What Is Urine Source? Random Performed By: #### U DRGS #### [address] [address] Other Comment: URINE DRUG SCREENS ARE FOR [...] and can be ordered separately. BENZODIAZEPINES Negative [facility] Comment on above: Order Comment: What Is Urine Source? Random Performed By: #### U DRGS #### [place] [address] Other Comment: URINE DRUG SCREENS ARE FOR [...] and can be ordered separately. COCAINE Negative [facility] Comment on above: Order Comment: What Is Urine Source? Random Performed By: #### U DRGS #### [address] [address] Other Comment: URINE DRUG SCREENS ARE FOR [...] and can be ordered separately. METHADONE Negative [facility] Comment on above: Order Comment: What Is Urine Source? Random Performed By: #### U DRGS #### [address] [address] Other Comment: URINE DRUG SCREENS ARE FOR [...] and can be ordered separately. OPIATES Negative [facility] Comment on above: Order Comment: What Is Urine Source? Random Performed By: #### U DRGS #### [facility] [address] [place] [address] Other Comment: URINE DRUG SCREENS ARE FOR [...] and can be ordered separately. PHENCYCLIDINE Negative Normal [facility] Comment on above: Order Comment: What Is Urine Source? Random Performed By: #### U DRGS #### [address] [address] Other Comment: URINE DRUG SCREENS ARE FOR [...] and can be ordered separately. THC Negative [facility] Comment on above: Order Comment: What Is Urine Source? Random Performed By: #### U DRGS #### [address] [address] Other Comment: URINE DRUG SCREENS ARE FOR [...] DRG SCREEN CUT OFF SEE BELOW Normal [facility] Comment on above: Order Comment: What Is Urine Source? Random Performed By: #### U DRGS #### [address] [address] Other Comment: URINE DRUG SCREENS ARE FOR [...] WRIST-LEFT CMPL MIN 3 VIEWS DALY EVANS A Female [id number] Ordering physician: Yohana Bennett LOC:ER [id number] Attending physician: 1985 35 DO S: 05/21/21 Acc#: [id number] Exam/Proc: WRIST-LEFT CMPL MIN 3 VIEWS Dept: [...] 05/21/2021 8:50:09 AM EST Workstation ID : [id number] REPORT SIGNATURE ON FILE Electronically Signed Date/Time: 05/21/21 0850 Dictated Date/time: 05/21/21 0843 CC: [facility] XR Knee - left 4 Viewson IMPRESSION: Findings are suggestive of mild degenerative changes in the left knee. [facility]: [facility] Transcribe Date/Time: Mar 12 2021 11:00A Dictated by : MATTY CASTELLON MD This examination was interpreted and the report reviewed and electronically signed by: MATTY CASTELLON MD on Mar 12 2021 11:01AM [facility] DIVISION OF RADIOLOGY * * *Final Report* [...] soft tissue swelling. DIVISION OF RADIOLOGY Provider, [facility] - 03/12/2021 * * *Final Report* * [...] mild degenerative changes in the left knee. [facility]: NANCY Transcribe Date/Time: Mar 12 2021 11:00A Dictated by : MATTY CASTELLON MD This examination was interpreted and the report reviewed and electronically signed by: MATTY CASTELLON MD on Mar 12 2021 11:01AM EST [facility] Radiology Study observation (narrative) [facility] XR Knee - left 4 ViewsOrdere d By: Ccf Provider on 03-12-2021 [facility] TS GELon 02-07-2018 TS GEL ABO Group: O Rh, Gel: POS Antibody Screen Gel: NEG Normal [facility] Comment on above: Performed By: #### T SGL ####[address] [place] [address] Basic Metabolic Panelon 01-25 Anion gap 3 molar conc 8 Normal [facility] Comment on above: Performed By: #### H EMDF, ESR, PT/AP, LACT3, QWNT, CRP2, BMP3 ####[address] [place] [address] Calcium mass conc 8.8 mg/dL Normal 8.4-10.4 [facility] Comment on above: Performed By: #### H EMDF, ESR, PT/AP, LACT3, QWNT, CRP2, BMP3 ####[address] [place] [address] CO2 molar conc 24 mmol/L Normal 22-30 [facility] Comment on above: Performed By: #### H EMDF, ESR, PT/AP, LACT3, QWNT, CRP2, BMP3 ####[address] [address] Glucose mass conc 89 mg/dL Normal 70-100 [facility] Comment on above: Performed By: #### H EMDF, ESR, PT/AP, LACT3, QWNT, CRP2, BMP3 ####[address] [place] [address] Urea nitrogen mass conc 10 mg/dL Normal 7-20 [facility] Comment on above: Performed By: #### H EMDF, ESR, PT/AP, LACT3, QWNT, CRP2, BMP3 ####[address] [place] [address] Creatinine mass conc 0.67 mg/dL Normal 0.52-1.25 [facility] Comment on above: Performed By: #### H EMDF, ESR, PT/AP, LACT3, QWNT, CRP2, BMP3 ####[address] [place] [address] GFR/1.73 sq M predicted among blacks MDRD vol rate/area (S/P/Bld) mL/min/{1.73_m2} Normal >60 [facility] Comment on above: Performed By: #### H EMDF, ESR, PT/AP, LACT3, QWNT, CRP2, BMP3 ####[email or web address] [place] [address] GFR/1.73 sq M predicted among non-blacks MDRD vol rate/area (S/P/Bld) mL/min/{1.73_m2} Normal >60 [facility] Comment on above: Result Comment: Sour ce- MDRD equation with creatinine calibration to IDMS(NKDEP) eGFR not recommended for drug dose adjustment Performed By: #### H EMDF, ESR, PT/AP, LACT3, QWNT, CRP2, BMP3 ####[email or web address] [place] [address] Chloride molar conc 108 mmol/L High 98-107 [facility] Comment on above: Performed By: #### H EMDF, ESR, PT/AP, LACT3, QWNT, CRP2, BMP3 ####[email or web address] [address] Potassium molar conc 3.7 mmol/L Normal 3.5-5.1 [facility] Comment on above: Performed By: #### H EMDF, ESR, PT/AP, LACT3, QWNT, CRP2, BMP3 ####[email or web address] [address] Sodium molar conc 140 mmol/L Normal 137-145 [facility] Comment on above: Performed By: #### H EMDF, ESR, PT/AP, LACT3, QWNT, CRP2, BMP3 ####[email or web address] [address] C-Reactive Proteinon 018 CRP mass conc 9.4 mg/L High 0.0-6.0 [facility] Comment on above: Result Comment: . Performed By: #### H EMDF, ESR, PT/AP, LACT3, QWNT, CRP2, BMP3 ####[address] Hemogram w/ Autodiffon 02-06 Abs Baso Cnt 0.0 10*3/uL Normal 0.0-0.2 [facility] Comment on above: Performed By: #### H EMDF, ESR, PT/AP, LACT3, QWNT, CRP2, BMP3 ####[address] Abs Neutrophile Cnt 4.8 10*3/uL Normal 1.8-7.0 [facility] Comment on above: Performed By: #### H EMDF, ESR, PT/AP, LACT3, QWNT, CRP2, BMP3 ####[address] Basophils/100 WBC Auto (Bld) 0.3 % Normal 0.0-2.0 [facility] Comment on above: Performed By: #### H EMDF, ESR, PT/AP, LACT3, QWNT, CRP2, BMP3 ####[address] Eosinophils Auto #/vol (Bld) 0.1 10*3/uL Normal 0.0-0.5 [facility] Comment on above: Performed By: #### H EMDF, ESR, PT/AP, LACT3, QWNT, CRP2, BMP3 ####[address] Eosinophils/100 WBC Auto (Bld) 1.7 % Normal 1.0-6.0 [facility] Comment on above: Performed By: #### H EMDF, ESR, PT/AP, LACT3, QWNT, CRP2, BMP3 ####[address] Erythrocyte distribution width Auto Ratio (RBC) 14.5 % Normal 11.5-14.5 [facility] Comment on above: Performed By: #### H EMDF, ESR, PT/AP, LACT3, QWNT, CRP2, BMP3 ####[address] Granulocytes/100 WBC (Bld) 62.0 % Normal 40.0-80.0 [facility] Comment on above: Performed By: #### H EMDF, ESR, PT/AP, LACT3, QWNT, CRP2, BMP3 ####[address] [place], [place] Hematocrit Auto Volume Fraction (Bld) 40.4 % Normal 35.0-47.0 [facility] Comment on above: Performed By: #### H EMDF, ESR, PT/AP, LACT3, QWNT, CRP2, BMP3 ####[address] Hemoglobin mass conc (Bld) 13.7 g/dL Normal 11.7-16.0 [facility] Comment on above: Performed By: #### H EMDF, ESR, PT/AP, LACT3, QWNT, CRP2, BMP3 ####[address] Lymphocytes Auto #/vol (Bld) 2.3 10*3/uL Normal 1.0-4.3 [facility] Comment on above: Performed By: #### H EMDF, ESR, PT/AP, LACT3, QWNT, CRP2, BMP3 ####[address] Lymphocytes/100 WBC Auto (Bld) 29.4 % Normal 20.0-40.0 [facility] Comment on above: Performed By: #### H EMDF, ESR, PT/AP, LACT3, QWNT, CRP2, BMP3 ####[address] MCH Auto Entitic mass (RBC) 31.2 pg Normal 26.0-34.0 [facility] Comment on above: Performed By: #### H EMDF, ESR, PT/AP, LACT3, QWNT, CRP2, BMP3 ####[address] MCHC Auto mass conc (RBC) 33.9 % Normal 32.0-36.0 [facility] Comment on above: Performed By: #### H EMDF, ESR, PT/AP, LACT3, QWNT, CRP2, BMP3 ####[address] [place], [place] MCV Auto Entitic volume (RBC) 92.2 fL Normal 79.0-98.0 [facility] Comment on above: Performed By: #### H EMDF, ESR, PT/AP, LACT3, QWNT, CRP2, BMP3 ####[address] [place], [place] Monocytes Auto #/vol (Bld) 0.5 10*3/uL Normal 0.0-0.8 [facility] Comment on above: Performed By: #### H EMDF, ESR, PT/AP, LACT3, QWNT, CRP2, BMP3 ####[address] [place], [place] Monocytes/100 WBC Auto (Bld) 6.6 % Normal 2.0-10.0 [facility] Comment on above: Performed By: #### H EMDF, ESR, PT/AP, LACT3, QWNT, CRP2, BMP3 ####[address] [place], [place] Platelet mean volume Auto Entitic volume (Bld) 7.8 fL Normal 7.4-10.4 [facility] Comment on above: Performed By: #### H EMDF, ESR, PT/AP, LACT3, QWNT, CRP2, BMP3 ####[address] [place], [place] Platelets Auto #/vol (Bld) 282 10*3/uL Normal 140-440 [facility] Comment on above: Performed By: #### H EMDF, ESR, PT/AP, LACT3, QWNT, CRP2, BMP3 ####[address] [place], [place] RBC Auto #/vol (Bld) 4.38 10*6/uL Normal 3.80-5.20 [facility] Comment on above: Performed By: #### H EMDF, ESR, PT/AP, LACT3, QWNT, CRP2, BMP3 ####[address] [place], [place] WBC Auto #/vol (Bld) 7.8 10*3/uL Normal 3.6-10.7 [facility] Comment on above: Performed By: #### H EMDF, ESR, PT/AP, LACT3, QWNT, CRP2, BMP3 ####[address] [place], [place] Lactic Acidon 02-06-2018 Lactate molar conc 0.6 mmol/L Low 0.7-2.0 [facility] Comment on above: Performed By: #### H EMDF, ESR, PT/AP, LACT3, QWNT, CRP2, BMP3 ####[address] Protime AND APTTon 8 INR Coag RelTime (PPP) 1.0 Normal 0.9-1.1 [facility] Comment on above: Result Comment: Soy [...] EMDF, ESR, PT/AP, LACT3, QWNT, CRP2, BMP3 ####[address] Prothrombin time (PT) Coag time (PPP) 10.4 s Normal 9.0-12.0 [facility] Comment on above: Result Comment: . Performed By: #### H EMDF, ESR, PT/AP, LACT3, QWNT, CRP2, BMP3 ####[facility] [address] [place] [address] aPTT Coag time (Bld) 24.1 s Normal 20.0-30.5 [facility] Comment on above: Result Comment: NOTE : The therapeutic time for Heparin anticoagulation,based on Xa activity inhibition, is an APTT of 46-80seconds. Performed By: #### H EMDF, ESR, PT/AP, LACT3, QWNT, CRP2, BMP3 ####[facility] [id number] [place] Sed Rateon 02-06-2018 Sed Rate 13 mm/h Normal 0-20 [facility] Comment on above: Performed By: #### H EMDF, ESR, PT/AP, LACT3, QWNT, CRP2, BMP3 ####[facility] [address] [place] [address] hCG Quantitativeon 8 hCG Quantitative < 2 Normal < 3 [facility] Comment on above: Performed By: #### H EMDF, ESR, PT/AP, LACT3, QWNT, CRP2, BMP3 ####[facility] [address] [place] [address] History And Physical-Dictate don 01-03-2018 Discharge Summary [facility], [place] [address]BBAJDALY BRADY [facility] [id number] [id number] 1985ADMIT 12/08/2017DISCH 12/13/2017DISCHARGE SUMMARYREASON FOR ADMISSIONDaly Evans is a 32 years young, single female who was admitted asan emergency from [facility] on 12/08/2017 with history of increasingdepression and suicidal ideations. She reported multiple psychosocial issuesincluding recent break-up with a boyfriend, loss of adequate housing andunemployment since May,. She is also a single mother of a 5-year-old son. She was contemplating to take an overdose when she call [facility]'s crisis hotline, and following evaluation at [facility] emergency room, she was admitted for further [...] at bedtime, Seroquel 300 mg at bedtime, Rftrekpv76 mg at bedtime and trazodone 100 mg [...] [facility] [place] [place].CONDITION AT TIME OF DISCHARGEImproved.ONEAL ROMERO 01/03/2018 11:07 [id number] 01/03/2018 11:21 CPP/MODLElectronically Signed By Zakiya George M.D. on 07 Jan 2018 17:56:48 GMT Normal [facility] History And Physical-Dictated [facility], [place] [address]SFQD DALY EVANS [facility] [id number] 1985ADMIT 12/08/2017HISTORY AND PHYSICALIDENTIFICATION DATADaly Evans is a 89-tdsra[age]urlqx single, female who was admitted asan emergency from [facility] on 12/08/2017.CHIEF COMPLAINTI [facility] and suicidal ideations. Next thing Iknow, they sent police after me.PRESENT PSYCHIATRIC HISTORYDaly reported that she has been experiencing difficulties [...] suicide by taking an overdose, she called [facility] crisis hot[facility], [facility]. She reported that prior to thisadmission she was taking a number of medications as prescribed by nursepractitioner at [facility]. She was unable to identify all themedication and the strength.FAMILY HISTORYShe denied any knowledge of psychiatric illness in the family. However, shedid report that her only sibling, a brother, has Asperger syndrome andcurrently he lives at home with his parents.PAST PSYCHIATRIC HISTORYShe reported that she has been receiving outpatient treatment at [facility] off and on since the age of 13.She reported that she was admitted to [facility] in October 2017for 7 days following an overdose of trazodone, Prozac, and Lamictal.PERSONAL HISTORYShe is a 68-oehto[age]sas young single, female, and mother of a [...] LENGTH OF STAY5 to 7 days.ZAKIYA GEORGE, ONEAL 12/09/2017 11:05 [id number] 12/09/2017 11:34 CPP/MODLElectronically Signed By Zakiya George M.D. on 11 Dec 2017 17:30:48 GMT Normal [facility] Protein [facility], [place] [address]CMHQ DALY EVANS [facility] [id number] 1985DATE 12/12/2017PROGRESS NOTEDaly was seen individually and the case was [...] with current treatmentplans.ZAKIYA GEORGE, ONEAL 12/12/2017 11:18 [id number] 12/12/2017 17:11 CPP/MODLElectronically Signed By Zakiya George M.D. on 14 Dec 2017 21:36:28 GMT Normal [facility] Lipid Panelon 12-09-2017 Cholesterol 168 mg/dL Normal 100-199 [facility] Comment on above: Performed By: #### T SH, LIPID ####Unless otherwise noted, all testing performed by [address] [id number]: [id number] Director: Willis Paulino M.D. Cholesterol in VLDL mass conc 21 mg/dL Normal 5-40 [facility] Comment on above: Performed By: #### T SH, LIPID ####Unless otherwise noted, all testing performed by [address] [phone]: [id number] Director: Willis Paulino M.D. Cholesterol to HDL Ratio 2.7 {ratio} Low 3.2-5.0 [facility] Comment on above: Result Comment: Fema le Coronary Heart Disease Risk Factor (CHDRF):Average risk= 4.41/2 Average risk= 3.32 times Average risk= 7.1 Performed By: #### T SH, LIPID ####Unless otherwise noted, all testing performed by [address] [phone]: [id number] Director: Willis Paulino M.D. HDL Cholesterol 62 mg/dL High 40-59 [facility] Comment on above: Performed By: #### T SH, LIPID ####Unless otherwise noted, all testing performed by [address] [phone]: [id number] Director: Willis Paulino M.D. LDL Cholesterol 86 mg/dL Normal 10-150 [facility] Comment on above: Performed By: #### T SH, LIPID ####Unless otherwise noted, all testing performed by [address] [phone]: [id number] Director: Willis Paulino M.D. Triglyceride 105 mg/dL Normal 25-120 [facility] Comment on above: Performed By: #### T SH, LIPID ####Unless otherwise noted, all testing performed by [address] [phone]: [id number] Director: Willis Paulino M.D. TSHon 12-09-2017 Thyroid stimulating hormone (TSH) 1.70 uIU/mL Normal 0.320-5.000 [facility] Comment on above: Result Comment: Samp les from patients routinely receiving high dose biotin therapy(100-300 mg/day) may show falsely decreased results. Please correlateclinically. Performed By: #### T SH, LIPID ####Unless otherwise noted, all testing performed by [address] [phone]: [id number] Director: Willis Paulino M.D. Urinalysis, Routineon 2017 Bilirubin,Urine Negative Normal NEG;NEGATIV E [facility] Comment on above: Performed By: #### U A ####Unless otherwise noted, all testing performed by [address] [phone]: [id number] Director: Willis Paulino M.D. Blood,Urine Negative Normal NEG;NEGATIV E [facility] Comment on above: Performed By: #### U A ####Unless otherwise noted, all testing performed by [address] [phone]: [id number] Director: Willis Paulino M.D. Character Clear Normal [facility] Comment on above: Performed By: #### U A ####Unless otherwise noted, all testing performed by [address]CLIA: [id number] Director: Willis Paulino M.D. Ketone,Urine Negative Normal NEG;NEGATIV E [facility] [facility] Comment on above: Performed By: #### U A ####Unless otherwise noted, all testing performed by [address] [id number]: [id number] Director: Willis Paulino M.D. Leuk.Esterase,Urine Negative Normal Negative [facility] Comment on above: Performed By: #### U A ####Unless otherwise noted, all testing performed by [address] [id number]: [id number] Director: Willis Paulino M.D. Nitrite,Urine Negative Normal NEG;NEGATIV E [facility] Comment on above: Performed By: #### U A ####Unless otherwise noted, all testing performed by [address] [id number]: [id number] Director: Willis Paulino M.D. Protein,Urine Negative Normal NEG;NEGATIV E [facility] Comment on above: Performed By: #### U A ####Unless otherwise noted, all testing performed by [address] [id number]: [id number] Director: Willis Paulino M.D. Specific [place],Urine 1.006 Normal 1.003-1.029 [facility] Comment on above: Performed By: #### U A ####Unless otherwise noted, all testing performed by [place] [id number]: [id number] Director: Willis Paulino M.D. Squamous Epithelial 2 /HPF Normal 0-40 [facility] Comment on above: Performed By: #### U A ####Unless otherwise noted, all testing performed by [address] [id number]: [id number] Director: Willis Paulino M.D. Urine, color Yellow Normal [facility] Comment on above: Performed By: #### U A ####Unless otherwise noted, all testing performed by [address] [id number]: [id number] Director: Willis Paulino M.D. Urine, glucose presence Negative Normal NEG;NEGATIV E [facility] Comment on above: Performed By: #### U A ####Unless otherwise noted, all testing performed by [address] [id number]: [id number] Director: Willis Paulino M.D. Urine, leukocytes in sedmiment /[HPF] Normal 0-5 [facility] Comment on above: Performed By: #### U A ####Unless otherwise noted, all testing performed by [address] [id number]: [id number] Director: Willis Paulino M.D. Urine, pH 7.0 [pH] Normal 4.5-8.0 [facility] Comment on above: Performed By: #### U A ####Unless otherwise noted, all testing performed by [address] [id number]: [id number] Director: Willis Paulino M.D. Urobilinogen,Urine < 2.0 Normal <2 [facility] Comment on above: Performed By: #### U A ####Unless otherwise noted, all testing performed by [address] [id number]: [id number] Director: Willis Paulino M.D. Vital Signs Date Time Vital Sign Value Performing Clinician Facility 01-28-2025 14:18-0400 Body mass index (BMI) [Ratio] 27.06 kg/m2 Ed Thomas APRN.TOW MATE Work Phone: [facility] 01-28-2025 14:18-040 Body weight 78.38 kg Ed Thomas APRN.CNP Work Phone: [facility] 01-28-2025 14:18-0400 Diastolic blood pressure 64 mm[Hg] Ed Thomas APRN.CNP Work Phone: [facility] 01-28-2025 14:18-0400 Heart rate 112 /min Ed Thomas APRN.CNP Work Phone: [facility] 01-28-2025 14:18-0400 Respiratory rate 14 /min Ed Odessa CHANGE MANAGEMENT SPECIALIST.TOW MATE Work Phone: [facility] 01-28-2025 14:18-0400 SaO2% (BldA) [Mass fraction] 98 % Ed Odessa CHANGE MANAGEMENT SPECIALIST.TOW MATE Work Phone: [facility] 01-28-2025 14:18-0400 Systolic blood pressure 112 mm[Hg] Ed Odessa CHANGE MANAGEMENT SPECIALIST.TOW MATE Work Phone: [facility] 01-10-2025 13:57-0400 Body mass index (BMI) [Ratio] 29.09 kg/m2 Ed Odessa CHANGE MANAGEMENT SPECIALIST.TOW MATE Work Phone: [facility] 01-10-2025 13:57-0400 Body weight 84.28 kg Ed Odessa CHANGE MANAGEMENT SPECIALIST.TOW MATE Work Phone: [facility] 01-10-2025 13:57-0400 Diastolic blood pressure 60 mm[Hg] Ed Odessa CHANGE MANAGEMENT SPECIALIST.TOW MATE Work Phone: [facility] 01-10-2025 13:57-0400 Heart rate 84 /min Ed Odessa CHANGE MANAGEMENT SPECIALIST.TOW MATE Work Phone: [facility] 01-10-2025 13:57-0400 SaO2% (BldA) [Mass fraction] 99 % Ed Odessa CHANGE MANAGEMENT SPECIALIST.TOW MATE Work Phone: [facility] 01-10-2025 13:57-0400 Systolic blood pressure 90 mm[Hg] Ed Odessa CHANGE MANAGEMENT SPECIALIST.TOW MATE Work Phone: [facility] 01-09-2025 11:00-0400 Body mass index (BMI) [Ratio] 29.59 kg/m2 Research Coordinator [facility] 01-09-2025 11:00-0400 Body weight 85.73 kg Research Coordinator [facility] Comment on above: per patient report using home weight payton palacio 12-31-2024 09:50-0400 Body height 170.2 cm Kirit Devine MD Work Phone: [facility] 12-31-2024 09:50-0400 Body mass index (BMI) [Ratio] 29.62 kg/m2 Kirit Devine MD Work Phone: [facility] 12-31-2024 09:50-0400 Body temperature 97.39 [degF] Kirit Devine MD Work Phone: [facility] 12-31-2024 09:50-0400 Body weight 85.8 kg Kirit Devine MD Work Phone: [facility] 12-31-2024 09:50-0400 Diastolic blood pressure 77 mm[Hg] Kirit Devine MD Work Phone: [facility] 12-31-2024 09:50-0400 Heart rate 111 /min Kirit Devine MD Work Phone: [facility] 12-31-2024 09:50-0400 Respiratory rate 18 /min Kirit Devine MD Work Phone: [facility] 12-31-2024 09:50-0400 SaO2% (BldA) [Mass fraction] 98 % Kirit Devine MD Work Phone: [facility] 12-31-2024 09:50-0400 Systolic blood pressure 106 mm[Hg] Kirit Caldwell Work Phone: [facility] 12-12-2024 19:56-0400 SaO2% (BldA) [Mass fraction] 98 % ED THOMAS [facility] Comment on above: Order Comment: Specimen Type: ARTERIAL B LOOD SPECIMENOrdering Facility: [facility] Address: [address] [place] [address] Performed By: #### A LLBG ####[facility] LABCLIA [id number] [address] [place] 12-12-2024 18:09-0400 SaO2% (BldA) [Mass fraction] 99 % ED THOMAS [facility] Comment on above: Order Comment: Specimen Type: ARTERIAL B LOOD SPECIMENOrdering Facility: [facility] Address: [address] [place], [place] [address] Performed By: #### A LLBG ####[facility] [id number] [place] [id number] [facility] 12-12-2024 14:39-0400 SaO2% (BldA) [Mass fraction] 100 % ED ODESSA [facility] Comment on above: Order Comment: Specimen Type: ARTERIAL B LOOD SPECIMENOrdering Facility: [facility] Address: [address] [place], [place] [id number] Performed By: #### A LLMG ####[facility] [id number] [place] [id number] [facility] 12-12-2024 14:06-0400 SaO2% (BldA) [Mass fraction] 100 % ED ODESSA [facility] Comment on above: Order Comment: Specimen Type: ARTERIAL B LOOD SPECIMENOrdering Facility: [facility] Address: [address] [place], [place] [address] Performed By: #### A LLMG ####[facility] [id number] [place] [id number] [facility] [place] 12-12-2024 13:31-0400 SaO2% (BldA) [Mass fraction] 100 % ED ODESSA [facility] Comment on above: Order Comment: Specimen Type: ARTERIAL B LOOD SPECIMENOrdering Facility: [facility] Address: [address] [place], [place] [phone] Performed By: #### A LLMG ####[facility] [id number] [place] [id number] [facility] [place] 12-12-2024 11:41-0400 SaO2% (BldA) [Mass fraction] 100 % ED ODESSA [facility] Comment on above: Order Comment: Specimen Type: ARTERIAL B LOOD SPECIMENOrdering Facility: [facility] Address: [address] [place] [address] Performed By: #### A LLMG ####[facility] LABIA [id number] [address] [address] [facility] 12-12-2024 10:00-0400 SaO2% (BldA) [Mass fraction] 99 % ED THOMAS [facility] Comment on above: Order Comment: Specimen Type: ARTERIAL B LOOD SPECIMENOrdering Facility: [facility] Address: [address] [place], [place] [address] Performed By: #### A LLMG ####[facility] LABCLIA [id number] [address] [address] [facility] 10-02-2024 15:02-0400 Body height 169.5 cm Martín Keylai DO Work Phone: [facility] 10-02-2024 15:02-0400 Body mass index (BMI) [Ratio] 32.21 kg/m2 Martín Keylai DO Work Phone: [facility] 10-02-2024 15:02-0400 Body temperature 97.81 [degF] Martín Masci DO Work Phone: [facility] 10-02-2024 15:02-0400 Body weight 92.53 kg Martín Ramiresi DO Work Phone: [facility] 10-02-2024 15:02-0400 Diastolic blood pressure 72 mm[Hg] Martín Ballesteros DO Work Phone: [facility] 10-02-2024 15:02-0400 Heart rate 114 /min Martín Masci DO Work Phone: [facility] 10-02-2024 15:02-0400 SaO2% (BldA) [Mass fraction] 99 % Martín Ramiresi DO Work Phone: [facility] 10-02-2024 15:02-0400 Systolic blood pressure 101 mm[Hg] Martín Ballesteros DO Work Phone: [facility] 09-19-2024 12:21-0400 Diastolic blood pressure 92 mm[Hg] Angela Jaison CHANGE MANAGEMENT SPECIALIST.TOW MATE Work Phone: [facility] 09-19-2024 12:21-0400 Heart rate 114 /min Angela Blackwood CHANGE MANAGEMENT SPECIALIST.TOW MATE Work Phone: [facility] 09-19-2024 12:21-0400 SaO2% (BldA) [Mass fraction] 96 % Angela Blackwood CHANGE MANAGEMENT SPECIALIST.TOW MATE Work Phone: [facility] 09-19-2024 12:21-0400 Systolic blood pressure 132 mm[Hg] Angela Blackwood CHANGE MANAGEMENT SPECIALIST.TOW MATE Work Phone: [facility] 08-16-2024 09:09-0500 Body mass index (BMI) [Ratio] 33.21 kg/m2 Xochilt Marilin CHANGE MANAGEMENT SPECIALIST.TOW MATE Work Phone: [facility] 08-16-2024 09:09-0500 Body temperature 97.5 [degF] Xochilt Marilin CHANGE MANAGEMENT SPECIALIST.TOW MATE Work Phone: [facility] 08-16-2024 09:09-0500 Body weight 98.25 kg Xochilt Gaston CHANGE MANAGEMENT SPECIALIST.TOW MATE Work Phone: [facility] 08-16-2024 09:09-0500 Diastolic blood pressure 64 mm[Hg] Xochilt luis CHANGE MANAGEMENT SPECIALIST.TOW MATE Work Phone: [facility] 08-16-2024 09:09-0500 Heart rate 104 /min Xochilt Gaston CHANGE MANAGEMENT SPECIALIST.TOW MATE Work Phone: [facility] 08-16-2024 09:09-0500 SaO2% (BldA) [Mass fraction] 98 % Xochilt Marilin CHANGE MANAGEMENT SPECIALIST.TOW MATE Work Phone: [facility] 08-16-2024 09:09-0500 Systolic blood pressure 106 mm[Hg] Xochilt Marilin CHANGE MANAGEMENT SPECIALIST.TOW MATE Work Phone: [facility] 08-07-2024 09:40-0500 Body height 172 cm Xochilt Marilin CHANGE MANAGEMENT SPECIALIST.TOW MATE Work Phone: [facility] 08-07-2024 09:40-0500 Body mass index (BMI) [Ratio] 33.12 kg/m2 Xochilt Marilin CHANGE MANAGEMENT SPECIALIST.TOW MATE Work Phone: [facility] 08-07-2024 09:40-0500 Body weight 97.98 kg Xochilt Campoverdeutzman CHANGE MANAGEMENT SPECIALIST.TOW MATE Work Phone: [facility] 08-07-2024 09:40-0500 Diastolic blood pressure 72 mm[Hg] Xochiltcarlos Collins n CHANGE MANAGEMENT SPECIALIST.TOW MATE Work Phone: [facility] 08-07-2024 09:40-0500 Heart rate 106 /min Xochilt Marilin CHANGE MANAGEMENT SPECIALIST.TOW MATE Work Phone: [facility] 08-07-2024 09:40-0500 SaO2% (BldA) [Mass fraction] 96 % Xochilt Marilin CHANGE MANAGEMENT SPECIALIST.TOW MATE Work Phone: [facility] 08-07-2024 09:40-0500 Systolic blood pressure 108 mm[Hg] Xochilt Marilin CHANGE MANAGEMENT SPECIALIST.TOW MATE Work Phone: [facility] 03-29-2022 12:23-0400 Body temperature 97.5 [degF] Fredrick Boland DO Work Phone: [facility] 03-29-2022 12:23-0400 Body weight 100.7 kg Fredrick Boland DO Work Phone: [facility] 03-29-2022 12:23-0400 Diastolic blood pressure 60 mm[Hg] Fredrick Boland DO Work Phone: [facility] 03-29-2022 12:23-0400 Heart rate 76 /min Fredrick Boland DO Work Phone: [facility] 03-29-2022 12:23-0400 Respiratory rate 16 /min Fredrick Boland DO Work Phone: [facility] 03-29-2022 12:23-0400 Systolic blood pressure 120 mm[Hg] Fredrick Boland DO Work Phone: [facility] 02-02-2022 09:00-0400 Body temperature 97.5 [degF] Fredrick Boland DO Work Phone: [facility] 02-02-2022 09:00-0400 Body weight 100.25 kg Fredrick Boland DO Work Phone: [facility] 02-02-2022 09:00-0400 Diastolic blood pressure 70 mm[Hg] Fredrick Boland DO Work Phone: [facility] 02-02-2022 09:00-0400 Heart rate 80 /min Fredrick Boland DO Work Phone: [facility] 02-02-2022 09:00-0400 Respiratory rate 16 /min Fredrick Boland DO Work Phone: [facility] 02-02-2022 09:00-0400 Systolic blood pressure 100 mm[Hg] Fredrick Boland DO Work Phone: [facility] 10-23-2021 08:43-0400 Body weight 97.52 kg Xochilt Marilin CHANGE MANAGEMENT SPECIALIST.TOW MATE Work Phone: [facility] 10-23-2021 08:43-0400 Diastolic blood pressure 82 mm[Hg] Xochilt Stutzma n CHANGE MANAGEMENT SPECIALIST.TOW MATE Work Phone: [facility] 10-23-2021 08:43-0400 Heart rate 79 /min Xochilt Marilin CHANGE MANAGEMENT SPECIALIST.TOW MATE Work Phone: [facility] 10-23-2021 08:43-0400 Respiratory rate 16 /min Xochilt Marilin CHANGE MANAGEMENT SPECIALIST.TOW MATE Work Phone: [facility] 10-23-2021 08:43-0400 SaO2% (BldA) [Mass fraction] 99 % Xochilt Marilin CHANGE MANAGEMENT SPECIALIST.TOW MATE Work Phone: [facility] 10-23-2021 08:43-0400 Systolic blood pressure 122 mm[Hg] Xochilt Marilin CHANGE MANAGEMENT SPECIALIST.TOW MATE Work Phone: [facility] Encounters Encounter Date Encounter Type Care Provider Facility Start: 02-14-2025 ambulatory Yoseph Mendiola ty:[facility] Start: 02-11-2025 End: 02-11-2025 ambulatory Fredrick Boland DO Work Phone: [facility] Start: 02-11-2025 End: 02-11-2025 Patient encounter procedure Fredrick Boland DO Work Phone: [facility] Comment on above: Referral Start: 02-11-2025 End: 02-12-2025 Telephone encounter Fredrick Boland DO Work Phone: [facility] Comment on above: Consult Start: 02-08-2025 End: 02-08-2025 Telephone encounter Research Coordinator Clinical Research Comment on above: Research (IRB: [id number] Caring for OutPatiEnts after Acute Kidney Injury (COPE-JONATAN) trial PI: Dr. Juan Manuel Byrd ) Start: 02-07-2025 End: 02-07-2025 ambulatory [facility] Comment on above: Flagyl for bacterial overgrowth Start: 02-07-2025 End: 02-07-2025 E-mail encounter from caregiver [facility] Start: 02-06-2025 End: 02-07-2025 ambulatory Kirit Devine MD Work Phone: [facility] Comment on above: [place] Start: 02-05-2025 End: 02-05-2025 ambulatory Fredrick Boland Facility:[facility] Start: 01-28-2025 End: 01-28-2025 Office outpatient visit 25 minutes Ed Thomas APRN.CNP Work Phone: [facility] Comment on above: 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); Anticoagulation management encounter; Short bowel syndrome, 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; Malnutrition of moderate degree (HCC); Hypokalemia; Anemia, unspecified type; PICC (peripherally inserted central catheter) in place Start: 01-28-2025 End: 01-28-2025 ambulatory ED THOMAS Facility:[facility] Start: 01-28-2025 End: 01-28-2025 Telephone encounter Jigna RiveraKita Akhtarnick [facility] Comment on above: Research (JOSEPH JONATAN / [id number]) Start: 01-24-2025 End: 01-24-2025 Telephone encounter Hpn Transmitter Tester Work Phone: Gastroenterology Start: 01-24-2025 End: 01-24-2025 ambulatory Yoseph Fonseca Facility:[facility] Start: 01-23-2025 End: 01-23-2025 Telephone encounter Hpn Transmitter Tester Work Phone: Gastroenterology Start: 01-22-2025 End: 01-22-2025 ambulatory Hpn Transmitter Tester Work Phone: Gastroenterology Start: 01-21-2025 End: 01-21-2025 ambulatory EDFRANCISCA THOMAS Facility:[facility] Start: 01-17-2025 End: 01-17-2025 Telephone encounter Hpn Transmitter Tester Work Phone: Gastroenterology Start: 01-15-2025 End: 01-24-2025 Follow-up encounter Ed Thomas APRN.TOW MATE Work Phone: [facility] Comment on above: Results Start: 01-14-2025 End: 01-14-2025 Telephone encounter Ed Thomas APRN.TOW MATE Work Phone: [facility] Start: 01-11-2025 End: 01-11-2025 ambulatory CLAYTON Lila ANGELES Facility:[facility] Start: 01-11-2025 End: 01-11-2025 [facility] Bridgette CHANGE MANAGEMENT SPECIALIST.TOW MATE Work Phone: Psychiatry Comment on above: ELIJAH (generalized anx iety disorder) (Primary Dx); Anxiety about health; Bipolar II disorder (HCC); Encounter for long-term (current) use of medications; Insomnia due to other mental disorder Start: 01-10-2025 End: 01-10-2025 ambulatory ED THOMAS Facility:[facility] Start: 01-10-2025 End: 01-10-2025 Office outpatient visit 40 minutes Ed Thomas APRN.TOW MATE Work Phone: [facility] Comment on above: 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 Juan Manuel Byrd) Start: 01-08-2025 End: 01-10-2025 Telephone encounter Hpn Transmitter Tester Work Phone: Gastroenterology Comment on above: Critical Lab Start: 01-08-2025 End: 01-08-2025 ambulatory Fredrick Boland Facility:[facility] Start: 01-07-2025 End: 01-07-2025 Telephone encounter Larry Betancourt MD [facility] Department Comment on above: Fabric Transition of Care Start: 01-04-2025 End: 01-04-2025 Telephone encounter Dayan LUA Hematology/Oncology Start: 01-03-2025 End: 01-03-2025 Telephone encounter Dayan LUA Hematology/Oncology Start: 01-02-2025 End: 01-02-2025 Telephone encounter Jigna Rivera) [facility] Comment on above: Transition Of Care Start: 01-01-2025 End: 01-01-2025 Telephone encounter Fredrick Boland DO Work Phone: NOC Comment on above: Transition Of Care Start: 01-01-2025 ambulatory Fredrick Boland Facilit y:[facility] Start: 12-31-2024 End: 12-31-2024 Patient encounter procedure Kirit Devine MD Work Phone: [facility] Comment on above: S/P exploratory lapa rotomy Start: 12-31-2024 End: 12-31-2024 ambulatory KIRIT DEVINE Facility:[facility] Start: 12-25-2024 End: 12-27-2024 ambulatory Jigna Rivera) [facility] Comment on above: Research (JOSEPH CHEUNG / [id number]) Research (JOSEPH-JONATAN Maday manuel/IRB: [id number]- Pharmacist Contact ) Start: 12-25-2024 End: 12-25-2024 Telephone encounter Intestinal Trans Coord Main Work Phone: Transplant Center Comment on above: Hospital F/U Transition Of Care ( RC f/u discharge LVM /) Start: 12-24-2024 End: 12-24-2024 ambulatory Fredrick Boland Facility:[facility] Start: 12-21-2024 End: 12-30-2024 Orders Only Cgrt [...] questions, please feel call Yuri Salcedo at [phone]/) Start: 12-13-2024 End: 12-13-2024 Telephone encounter Intestinal Trans Coord Main Work Phone: Transplant Center Comment on above: Return Call Request Start: 11-28-2024 End: 11-28-2024 Telephone encounter Intestinal Trans Coord Main Work Phone: Transplant Center Comment on above: Return Call Request Start: 11-28-2024 End: 12-21-2024 Evaluation and management of inpatient KIRTI DEVINE Facility:[facility] Start: 11-27-2024 End: 11-27-2024 Telephone encounter Kirit Devine MD Work Phone: [facility] Start: 11-21-2024 End: 11-23-2024 Evaluation and management of inpatient Taras Sue Facility:[facility] Start: 11-21-2024 ambulatory Taras Sue Fac ility:[facility] Start: 11-14-2024 ambulatory Joshua Nazario Facility:[facility] Start: 11-13-2024 End: 11-16-2024 ambulatory Fredrick Boland Facility:[facility] Start: 11-13-2024 End: 11-16-2024 Evaluation and management of inpatient Rosa Maria Cai Facility:[facility] Start: 11-12-2024 End: 11-12-2024 Telephone encounter Danialdestiny Bashir [facility] Trans[facility] Start: 11-06-2024 End: 11-06-2024 Telephone encounter Fredrick Boland DO Work Phone: [address] [place] [address] Comment on above: Transition Of Care ( Left V/m ) Start: 11-05-2024 End: 11-05-2024 Telephone encounter Danialdestiny Bashri [facility] Trans[facility] Start: 10-30-2024 End: 10-30-2024 Telephone encounter Larry Betancourt MD [facility] Department Comment on above: Fabric Transition of Care Start: 10-28-2024 ambulatory Joshua Rothclifemerson Facility:[facility] Start: 10-28-2024 End: 11-05-2024 Evaluation and management of inpatient Joshua Iracliferi Facility:[facility] Start: 10-26-2024 End: 10-26-2024 Patient encounter procedure Stephie Montoya MD Work Phone: Gastroenterology Comment on above: On total parenteral nutrition (TPN) (Primary Dx) Start: 10-19-2024 End: 10-26-2024 Evaluation and management of inpatient MICHAEL ELLIS Facility:[id number] Start: 10-19-2024 ambulatory MAGGIE PUTNAM [facility] Start: 10-19-2024 End: 10-19-2024 Emergency department patient visit HERBERT FLORES [facility] Start: 10-09-2024 End: 10-12-2024 ambulatory ROSA AMRIA BULLOCK Facility:[id number] Start: 10-09-2024 End: 10-10-2024 Telephone encounter Martín Ballesteros DO Work Phone: Hematology/Oncology Comment on above: Results; Follow Up Start: 10-09-2024 End: 10-09-2024 Emergency department [facility] Start: 10-08-2024 End: 10-12-2024 Telephone encounter Nico Bashir [facility] Transplant [facility] Comment on above: Virtual Education Vi sit Start: 10-03-2024 End: 10-03-2024 Telephone encounter Martín Estrella Favian DO Work Phone: Hematology/Oncology Comment on above: Electronic Communica tion Start: 10-02-2024 End: 10-02-2024 Patient encounter procedure Martín Ballesteros DO Work Phone: Hematology/Oncology Start: 10-02-2024 End: 10-03-2024 ambulatory Lab/Port Ernesto [facility] Work Phone: Hematology/Oncology Comment on above: Aortic thrombus (HCC ) (Primary Dx) Abnormal serum prote in electrophoresis (Primary Dx); Antiphospholipid antibody syndrome (HCC); Superior mesenteric artery thrombosis (HCC) Start: 09-19-2024 End: 09-19-2024 Patient encounter procedure Angela Blackwood APRN.TOW MATE Work Phone: Vascular Surg Dept Comment on above: Encounter for post s urgical wound check (Primary Dx); Encounter for staple removal; Arterial occlusion; Acute lower limb ischemia; intermodal dispatcher (current) use of aspirin; intermodal dispatcher current use of anticoagulant Start: 09-19-2024 End: 09-19-2024 ambulatory SELF Facility:[facility] Start: 09-17-2024 End: 09-17-2024 Emergency department patient visit [facility] Start: 09-12-2024 End: 09-14-2024 Telephone encounter Martín Estrella Favian DO Work Phone: Hematology/Oncology Comment on above: [...] Start: 09-03-2024 End: 10-26-2024 ambulatory MAGGIE VO [facility] Start: 08-28-2024 End: 08-28-2024 Telephone encounter Akua Grigsby MD Work Phone: Vascular Medicine Start: 08-20-2024 End: 08-20-2024 ambulatory Katelyn Villagran APRN.TOW MATE Work Phone: Critical Care Start: 08-20-2024 End: 09-03-2024 Evaluation and management of inpatient DELILAH CHAVES Facility:[facility] Start: 08-20-2024 End: 08-20-2024 Emergency department patient visit Heraclio Palacio Facility:[facility] Start: 08-16-2024 End: 08-16-2024 Emergency department patient visit Jag Johannyreinachay Facility:[facility] Start: 08-16-2024 End: 08-16-2024 ambulatory XOCHILT GASTON Facility:[facility] Start: 08-16-2024 End: 08-16-2024 Office outpatient visit 25 minutes Xochilt Gaston APRN.TOW MATE Work Phone: Family Medicine [place] Comment on above: Productive cough (Pr imary Dx); Eczema, unspecified type Start: 08-08-2024 End: 08-29-2024 Follow-up encounter Xochilt Gaston APRN.TOW MATE Work Phone: Family Medicine [place] Comment on above: Anemia, unspecified type (Primary Dx) Start: 08-07-2024 End: 08-07-2024 Telephone encounter Xochilt Gaston APRN.TOW MATE Work Phone: [facility] Comment on above: Results; EKG Start: 08-07-2024 End: 08-07-2024 ambulatory XOCHILT MARILIN Facility:[facility] Start: 08-07-2024 End: 08-07-2024 Office outpatient visit 25 minutes Xochilt Gaston APRN.TOW MATE Work Phone: [facility] Comment on above: Medication managemen t (Primary Dx); Hypokalemia; Low hemoglobin; Anemia, unspecified type; Elevated hemoglobin A1c Start: 07-30-2024 End: 07-30-2024 Emergency department patient visit Heraclio Jeannine Facility:[facility] Start: 06-19-2024 End: 06-21-2024 ambulatory Clayton Angeles APRN.TOW MATE Work Phone: Psychiatry Comment on above: EKG Start: 05-21-2024 End: 05-21-2024 ambulatory [facility] Facility:[facility] Start: 05-18-2024 End: 05-18-2024 [facility] Facility:[facility] Start: 05-18-2024 End: 05-18-2024 [facility] Clayton Angeles APRN.TOW MATE Work Phone: Psychiatry Comment on above: ELIJAH (generalized anx iety disorder) (Primary Dx); Panic attacks; Insomnia due to other mental disorder; Bipolar II disorder (HCC); Encounter for long-term (current) use of medications; History of marijuana use; Psychosocial stressors Start: 04-24-2024 End: 04-26-2024 ambulatory Clayton Angeles APRN.TOW MATE Work Phone: Psychiatry Comment on above: UA Start: 03-27-2024 End: 03-28-2024 ambulatory Clayton Angeles APRN.TOW MATE Work Phone: Psychiatry Comment on above: Lexapro and zyprexa Start: 03-21-2024 End: 03-21-2024 ambulatory Clayton Angeles APRN.TOW MATE Work Phone: Psychiatry Start: 03-21-2024 End: 03-21-2024 Patient encounter procedure Clayton Angeles CHANGE MANAGEMENT SPECIALIST.TOW MATE Work Phone: Psychiatry Comment on above: Appointment Start: 03-03-2024 End: 03-03-2024 ambulatory Clayton Angeles CHANGE MANAGEMENT SPECIALIST.TOW MATE Work Phone: Psychiatry Comment on above: NO SHOW (Primary Dx) Start: 03-03-2024 End: 03-03-2024 Telemedicine consultation with patient Clayton Angeles CHANGE MANAGEMENT SPECIALIST.TOW MATE Work Phone: Psychiatry Start: 02-21-2024 End: 02-21-2024 ambulatory Clayton Angeles CHANGE MANAGEMENT SPECIALIST.TOW MATE Work Phone: Psychiatry Comment on above: Lexapro Start: 01-26-2024 ambulatory Clayton [place]ins u CHANGE MANAGEMENT SPECIALIST.TOW MATE Work Phone: Psychiatry Comment on above: Appt Start: 01-19-2024 End: 01-19-2024 ambulatory Clayton Angeles CHANGE MANAGEMENT SPECIALIST.TOW MATE Work Phone: Psychiatry Comment on above: NO SHOW (Primary Dx) Start: 01-19-2024 End: 01-19-2024 Telemedicine consultation with patient Clayton Angeles APRN.TOW MATE Work Phone: Psychiatry Start: 12-30-2023 ambulatory Clayton [place] u CHANGE MANAGEMENT SPECIALIST.TOW MATE Work Phone: Psychiatry Start: 12-30-2023 End: 12-30-2023 Patient encounter procedure Clayton Angeles CHANGE MANAGEMENT SPECIALIST.TOW MATE Work Phone: Psychiatry Comment on above: Appointment APPOINTMENT CANCELLE D (Primary Dx) Start: 12-30-2023 End: 12-30-2023 Telemedicine consultation with patient Clayton Angeles APRN.TOW MATE Work Phone: Psychiatry Start: 12-12-2023 Refill Fredrick goodwin DO Work Phone: Family [facility] [place] Comment on above: Refill Request Start: 12-10-2023 [facility] Get Medical Advice Fredrick Boland DO Work Phone: Family Medicine [place] Comment on above: Refill Start: 11-12-2023 ambulatory Clayton Sharp Lakshmi u CHANGE MANAGEMENT SPECIALIST.TOW MATE Work Phone: Psychiatry Comment on above: Zyprexa Start: 10-19-2023 ambulatory Fredrick Hsu son DO Work Phone: Internal Medicine [facility] [place] Start: 09-27-2023 Refill Yesenia Rangel CHANGE MANAGEMENT SPECIALIST.TOW MATE Work Phone: [facility] [place] Comment on above: Refill Request Start: 09-02-2023 End: 09-02-2023 Distance [facility] Clayton Sharp Bridgette CHANGE MANAGEMENT SPECIALIST.TOW MATE Work Phone: Psychiatry Comment on above: Bipolar II disorder (HCC) (Primary Dx); Encounter for long-term (current) use of medications; Panic disorder without agoraphobia; History of marijuana use; ELIJAH (generalized anxiety disorder) Start: 05-23-2023 ambulatory Clayton Lila roman CHANGE MANAGEMENT SPECIALIST.TOW MATE Work Phone: Psychiatry Comment on above: Zyprexa Start: 05-16-2023 End: 05-16-2023 Distance [facility] Clayton Sharp Bridgette CHANGE MANAGEMENT SPECIALIST.TOW MATE Work Phone: Psychiatry Comment on above: Encounter for long-t erm (current) use of medications (Primary Dx); ELIJAH (generalized anxiety disorder); Bipolar II disorder (HCC); Panic disorder without agoraphobia Start: 04-18-2023 End: 04-18-2023 [facility] [place] Sharp Bridgette CHANGE MANAGEMENT SPECIALIST.TOW MATE Work Phone: Psychiatry Comment on above: ELIJAH (generalized anx iety disorder) (Primary Dx); Panic attacks; Bipolar II disorder (HCC); Occasional use of marijuana Start: 03-15-2023 Refill Yesenia Rangel CHANGE MANAGEMENT SPECIALIST.TOW MATE Work Phone: [facility] Comment on above: Refill Request Start: 03-14-2023 End: 03-14-2023 Distance [facility] Clayton Sharp Bridgette CHANGE MANAGEMENT SPECIALIST.TOW MATE Work Phone: Psychiatry Comment on above: Encounter for long-t erm (current) use of medications (Primary Dx); ELIJAH (generalized anxiety disorder); Panic attacks; Bipolar affective disorder, current episode mixed, current episode severity unspecified (HCC) Start: 02-25-2023 ambulatory Clayton roman CHANGE MANAGEMENT SPECIALIST.TOW MATE Work Phone: [facility] [place] Start: 02-25-2023 Patient encounter procedure Clayton Angeles CHANGE MANAGEMENT SPECIALIST.TOW MATE Work Phone: Psychiatry Comment on above: Appointment Start: 01-05-2023 Refill Clayton Nationr u CHANGE MANAGEMENT SPECIALIST.TOW MATE Work Phone: Psychiatry Comment on above: Refill Request Start: 01-03-2023 Refill Clayton [place]ins u CHANGE MANAGEMENT SPECIALIST.TOW MATE Work Phone: Psychiatry Comment on above: Refill Request Start: 12-31-2022 Refill Clayton Nationr u CHANGE MANAGEMENT SPECIALIST.TOW MATE Work Phone: Psychiatry Comment on above: Refill Request Start: 10-28-2022 End: 10-28-2022 [facility] Clayton Angeles CHANGE MANAGEMENT SPECIALIST.TOW MATE Work Phone: Psychiatry Comment on above: History of marijuana use (Primary Dx); Bipolar II disorder (HCC); Panic disorder without agoraphobia Start: 10-01-2022 Telephone [address] [facility] Surgery Comment on above: Centrifugal Wax Molder - O ther (ECT) Start: 09-30-2022 End: 09-30-2022 ambulatory [facility] Facility:[facility] Start: 09-30-2022 End: 09-30-2022 Patient encounter procedure [facility] CHANGE MANAGEMENT SPECIALIST.TOW MATE Work Phone: Psychiatry Comment on above: Bipolar II disorder (HCC) (Primary Dx) Start: 09-27-2022 End: 09-27-2022 [facility] Clayton Angeles CHANGE MANAGEMENT SPECIALIST.TOW MATE Work Phone: Psychiatry Comment on above: Bipolar 2 disorder ( HCC) (Primary Dx); Panic disorder without agoraphobia; Marijuana use Start: 09-13-2022 End: 09-13-2022 ambulatory Clayton Angeles CHANGE MANAGEMENT SPECIALIST.TOW MATE Work Phone: Psychiatry Comment on above: NO SHOW (Primary Dx) Start: 09-13-2022 End: 09-13-2022 Telemedicine consultation with patient Clayton Lila Angeles APRN.TOW MATE Work Phone: [facility] [place] Start: 08-24-2022 Telephone encounter Ariella Cortes RN Psychiatry Comment on above: ECT Referral Start: 08-08-2022 Refill Fredrick goodwin DO Work Phone: [facility] [place] Comment on above: Refill Request Start: 07-19-2022 End: 07-19-2022 [facility] Clayton Angeles CHANGE MANAGEMENT SPECIALIST.TOW MATE Work Phone: Psychiatry Comment on above: Panic disorder witho ut agoraphobia (Primary Dx); Bipolar 2 disorder (HCC); Marijuana use Start: 07-05-2022 Refill Clayton Nationr u CHANGE MANAGEMENT SPECIALIST.TOW MATE Work Phone: Psychiatry Comment on above: Refill Request Start: 07-01-2022 Refill Fredrick goodwin DO Work Phone: [facility] [place] Comment on above: Refill Request Start: 05-31-2022 End: 05-31-2022 [facility] Clayton Angeles CHANGE MANAGEMENT SPECIALIST.TOW MATE Work Phone: Psychiatry Comment on above: Encounter for long-t erm (current) use of medications (Primary Dx); Panic disorder without agoraphobia; Bipolar 2 disorder (HCC) Start: 05-24-2022 Refill Clayton Nationr u CHANGE MANAGEMENT SPECIALIST.TOW MATE Work Phone: Psychiatry Comment on above: Refill Request Start: 05-10-2022 Refill Clayton Omergur u CHANGE MANAGEMENT SPECIALIST.TOW MATE Work Phone: Psychiatry Comment on above: Refill Request Lexapro Start: 04-09-2022 End: 04-09-2022 ambulatory Clayton Angeles CHANGE MANAGEMENT SPECIALIST.TOW MATE Work Phone: Psychiatry Comment on above: NO SHOW (Primary Dx) Start: 04-09-2022 End: 04-09-2022 Telemedicine consultation with patient Clayton J Rajguru CHANGE MANAGEMENT SPECIALIST.TOW MATE Work Phone: [facility] [place] Start: 03-29-2022 End: 03-29-2022 Patient encounter procedure Fredrick Boland DO Work Phone: [facility] Comment on above: Bilateral hand pain (Primary Dx); Elevated C-reactive protein (CRP); Bipolar affective disorder, current episode mixed, current episode severity unspecified (HCC) Start: 03-10-2022 Telephone encounter Fredrick Yosef walsh DO Work Phone: [facility] Comment on above: Patient Update Start: 03-04-2022 End: 03-04-2022 [facility] Clayton Angeles CHANGE MANAGEMENT SPECIALIST.TOW MATE Work Phone: Psychiatry Comment on above: Panic disorder witho ut agoraphobia (Primary Dx); Bipolar 2 disorder (HCC) Start: 02-11-2022 Refill Clayton roman CHANGE MANAGEMENT SPECIALIST.TOW MATE Work Phone: Psychiatry Comment on above: Refill Request Start: 02-02-2022 End: 02-02-2022 Patient encounter procedure Fredrick Boland DO Work Phone: [facility] Comment on above: Bilateral hand pain (Primary Dx); Foot pain, bilateral; Fatigue, unspecified type; Myalgia; Multiple joint pain; Iron deficiency Start: 01-27-2022 End: 01-27-2022 Distance [facility] Clayton Angeles CHANGE MANAGEMENT SPECIALIST.TOW MATE Work Phone: Psychiatry Comment on above: Bipolar 2 disorder ( HCC) (Primary Dx); Panic disorder without agoraphobia Start: 01-11-2022 ambulatory Clayton Lila Nationr u CHANGE MANAGEMENT SPECIALIST.TOW MATE Work Phone: Psychiatry Comment on above: Lab work Start: 12-24-2021 End: 12-24-2021 Distance [facility] Clayton Angeles CHANGE MANAGEMENT SPECIALIST.TOW MATE Work Phone: Psychiatry Comment on above: ELIJAH (generalized anx iety disorder) (Primary Dx); Bipolar 2 disorder (HCC); Panic disorder without agoraphobia Start: 12-22-2021 Refill Yesenia lange CHANGE MANAGEMENT SPECIALIST.TOW MATE Work Phone: Family Medicine [place] Comment on above: Refill Request Start: 12-15-2021 ambulatory Clayton roman CHANGE MANAGEMENT SPECIALIST.TOW MATE Work Phone: Psychiatry Comment on above: Lexapro Start: 12-08-2021 Telephone encounter Clayton bro CHANGE MANAGEMENT SPECIALIST.TOW MATE Work Phone: Psychiatry Comment on above: Patient Question Start: 11-26-2021 Refill Clayton roman CHANGE MANAGEMENT SPECIALIST.TOW MATE Work Phone: Psychiatry Comment on above: Refill Request Start: 11-12-2021 End: 11-12-2021 [facility] Clayton Angeles CHANGE MANAGEMENT SPECIALIST.TOW MATE Work Phone: Psychiatry Comment on above: ELIJAH (generalized anx iety disorder) (Primary Dx); Bipolar 2 disorder (HCC) Start: 11-03-2021 Refill Yesenia Isabel k CHANGE MANAGEMENT SPECIALIST.TOW MATE Work Phone: Family Medicine [place] Comment on above: Refill Request Start: 10-27-2021 End: 10-27-2021 [facility] Clayton Angeles CHANGE MANAGEMENT SPECIALIST.TOW MATE Work Phone: Psychiatry Comment on above: ELIJAH (generalized anx iety disorder) (Primary Dx); Bipolar 2 disorder (HCC) Start: 10-23-2021 ambulatory Xochilt holland CHANGE MANAGEMENT SPECIALIST.TOW MATE Work Phone: [facility] [place] Start: 10-23-2021 End: 10-23-2021 Patient encounter procedure Xochilt Gaston CHANGE MANAGEMENT SPECIALIST.TOW MATE Work Phone: [facility] [place] Comment on above: Appointment Bipolar affective di sorder, current episode mixed, current episode severity unspecified (HCC) (Primary Dx); Alcohol abuse; Depressive disorder; Panic attacks; ADD (attention deficit disorder) without hyperactivity; Legal intervention, bystander injured, initial encounter Start: 10-10-2021 ambulatory Room Emergency Radiolog y Comment on above: Radiology CT Start: 10-10-2021 Patient encounter procedure Room Emergency [facility] Start: 03-12-2021 End: 03-12-2021 Subsequent hospital visit by physician [facility] Work Phone: Radiology Comment on above: Acute pain of left k nee [M25.562] Start: 02-07-2018 Patient encounter procedure SANDRA NINO [facility] Start: 12-08-2017 End: 12-13-2017 Evaluation and management of inpatient Zakiya George Facility:[facility] Date Procedure Procedure Detail Performing Clinician Start: 01-10-2025 Adult depression scr eening assessment Hpn Transmitter Tester Work Phone: Start: 12-18-2024 Antibody screen ED [place] Comment on above: Order Comment: Speci men Type: BLOOD SPECIMENOrdering Facility: [facility] Address: [address] [place] [address] Performed By: #### T SCR ####CC MAIN BLOOD BANKCLIA [id number] [address] Start: 12-10-2024 Colonoscopy ED [place] [facility] Start: 12-10-2024 Antibody screen ED [place] Comment on above: Order Comment: Speci men Type: BLOOD SPECIMENOrdering Facility: [facility] Address: [address] [place] [address] Performed By: #### T SCR ####CC MAIN BLOOD BANKCLIA [id number] [address] [place] Start: 12-06-2024 Colonoscopy ED [place] [facility] Start: 12-05-2024 Colonoscopy ED [place] [facility] Start: 10-02-2024 Heparin assay Martín Estrella Ma sci DO Work Phone: Start: 10-02-2024 PATHOLOGIST INTERPRE TATION CBC/DIFF Martín Ballesteros DO Work Phone: Start: 09-21-2024 Urinalysis MAGGIE HAMILTON Comment on above: Result Comment: URIN ALYSIS Performed By: #### [id number] #### [facility],[address] [place], [place] [id number] Start: 08-21-2024 H/O: surgery History of fasciotomy D danni Grigsby MD Work Phone: Start: 03-04-2022 Adult depression scr eening assessment Claytonsammie Angeles CHANGE MANAGEMENT SPECIALIST.TOW MATE Work Phone: Start: 01-27-2022 Adult depression scr eening assessment Clayton Rajdelfinorose CHANGE MANAGEMENT SPECIALIST.TOW MATE Work Phone: Start: 12-23-2021 Adult depression scr eening assessment Clayton Angeles CHANGE MANAGEMENT SPECIALIST.TOW MATE Work Phone: Start: 11-12-2021 Adult depression scr eening assessment Clayton Rajdelfinorose CHANGE MANAGEMENT SPECIALIST.TOW MATE Work Phone: Start: 10-26-2021 Adult depression scr eening assessment Xochilt Campoverdeutzman CHANGE MANAGEMENT SPECIALIST.TOW MATE Work Phone: Start: 08-27-2021 Adult depression scr eening assessment Room Emergency Start: 03-12-2021 Radiologic exam knee complete 4/more views Herbert Izquierdo MD Work Phone: H/O: surgery S/P exploratory laparotomy Intestinal Trans Coord Main Work Phone: H/O: surgery S/P exploratory laparotomy Kirit Devine MD Work Phone: Plan of Treatment Date Care Activity Detail Author Start: 05-21-2029 Urine microalbumin profile [facility] Start: 01-28-2026 Annual PCP Team Chronic Disease Visit Annual PCP Team Chronic Disease Visit [facility] Start: 01-10-2026 Annual PCP Team Chronic Disease Visit Annual PCP Team Chronic Disease Visit [facility] Start: 01-10-2026 Depression Screening Depression Screening [facility] Start: 11-29-2025 Hepatitis B screening Urine Albumin:Creatinine Ratio [facility] Start: 09-08-2025 PAP TESTING PAP TESTING [facility] Start: 08-27-2025 Diabetic foot examination Diabetic Foot Exam [facility] Start: 08-20-2025 Hepatitis B surface antibody level LDL Cholesterol [facility] Start: 08-16-2025 Annual PCP Team Chronic Disease Visit Annual PCP Team Chronic Disease Visit [facility] Start: 08-07-2025 Hepatitis B Vaccine (1 of 3 - 19+ 3-dose series) Hepatitis B Vaccine (1 of 3 - 19+ 3-dose series) [facility] Comment on above: Postponed from 09/08/2002 (Declined at t his time) Start: 08-07-2025 HIV screening HIV Screening [facility] Comment on above: Postponed from 09/08/2001 (Declined at t his time) Start: 08-07-2025 Pneumococcal vaccination Pneumococcal Vaccine (1 of 2 - PCV) [facility] Comment on above: Postponed from 09/08/2002 (Declined at t his time) Start: 08-07-2025 Screening for malignant neoplasm of breast Mammogram Screening [facility] Comment on above: Postponed from 2023 (Declined at t his time) Start: 03-26-2025 End: 03-26-2025 Patient encounter procedure 03/26/2025 2:30 PM EDT Office Visit Vascular Surg Dept [address] [place] [address] Aleja [facility]oncalves [facility] [address] [facility] [address] [place] [address] Arterial occlusion Vascular Surg Dept Comment on above: Arterial occlusion Start: 03-26-2025 End: 03-26-2025 Patient encounter procedure Vascular Surgery Comment on above: Arterial occlusion Start: 03-04-2025 End: 03-04-2025 ambulatory 03/04/2025 2:00 PM EDT [facility] Psychiatry [address] [place] [phone] Clayton Angeles, CHANGE MANAGEMENT SPECIALIST.TOW MATE [address] [place] [phone] Psychiatry Start: 02-28-2025 End: 02-28-2025 Patient encounter procedure 02/28/2025 1:00 PM EDT Office Visit [facility] [place] [address] [place], [place] [phone] Ed Thomas, CHANGE MANAGEMENT SPECIALIST.TOW MATE [address] [place], [place] [phone] 1 month f/up [facility] [place] Comment on above: 1 month f/up Start: 02-27-2025 End: 02-27-2025 Patient encounter procedure 02/27/2025 11:15 AM EDT Office Visit Vascular Medicine [address] [place] [address] Akua Grigsby MD [address] [place] [address] SMA thrombosis Vascular Medicine Comment on above: SMA thrombosis Start: 02-15-2025 End: 02-15-2025 Follow-up encounter 02/15/2025 11:30 AM EDT [facility] Psychiatry [address] [place] [address] Clayton Angeles, CHANGE MANAGEMENT SPECIALIST.TOW MATE [address] [place] [address] Follow up appointment Psychiatry Comment on above: Follow up appointment Start: 02-04-2025 Hemoglobin A1c measurement HbA1C [facility] Start: 01-28-2025 End: 01-28-2025 Patient encounter procedure 01/28/2025 2:20 PM EDT Office Visit Family [facility] [address] [place], [place] [phone] Ed Thomas, CHANGE MANAGEMENT SPECIALIST.TOW MATE [address] [place], [place] [phone] Blood thinner [facility] Comment on above: Blood thinner Start: 01-28-2025 End: 04-29-2025 CBC panel - Blood by Automated count [facility] Comment on above: Expected: 01/28/2025, Expires: Start: 01-28-2025 End: 04-29-2025 Comprehensive metabolic 2000 panel - Serum or Plasma [facility] Work Phone: Comment on above: Expected: 01/28/2025, Expires: Start: 01-28-2025 End: 04-29-2025 PT panel - Platelet poor plasma by Coagulation assay PROTHROMBIN TIME Lab Routine 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) Expected: 01/28/2025, Expires: 04/29/2025 [facility] Work Phone: Comment on above: Expected: 01/28/2025, Expires: Start: 01-22-2025 End: 01-22-2025 Patient encounter procedure [facility] [place] Comment on above: 1 week f/up Start: 01-14-2025 End: 04-15-2025 Basic metabolic 2000 panel - Serum or Plasma BASIC METABOLIC PANEL Lab Routine Hypokalemia Expected: 01/14/2025, Expires: 04/15/2025 [facility] Comment on above: Expected: 01/14/2025, Expires: Start: 01-14-2025 End: 04-15-2025 PT panel - Platelet poor plasma by Coagulation assay PROTHROMBIN TIME Lab Routine Blood thinned due to long-term anticoagulant use Expected: 01/14/2025, Expires: 04/15/2025 [facility] Work Phone: Comment on above: Expected: 01/14/2025, Expires: Start: 01-11-2025 End: 01-11-2025 Follow-up encounter 01/11/2025 3:00 PM EDT [facility] Psychiatry [address] [place] [phone] Clayton Angeles, CHANGE MANAGEMENT SPECIALIST.TOW MATE [address] [place] [phone] Follow up appointment Psychiatry Comment on above: Follow up appointment Start: 01-10-2025 End: 01-10-2025 Patient encounter procedure 01/10/2025 2:00 PM EDT Office Visit [facility] [address] [place], [place] [phone] Ed Thomas, CHANGE MANAGEMENT SPECIALIST.TOW MATE [address] [place], [place] [phone] check up/pain (MyChart Request) [facility] [place] Comment on above: check up/pain (MyChart Request) Start: 01-08-2025 End: 01-08-2025 Patient encounter procedure Gastroenterology Comment on above: hpn page [id number] Start: 01-07-2025 End: 01-07-2025 Follow-up encounter 01/07/2025 2:00 PM EDT [facility] Psychiatry [address] [place] [phone] Clayton Angeles, CHANGE MANAGEMENT SPECIALIST.TOW MATE [address] [place] [address] Follow up appointment Psychiatry Comment on above: Follow up appointment Start: 01-03-2025 End: 01-03-2025 Patient encounter procedure 01/03/2025 10:40 AM EDT Office Visit Family [facility] [address] [place], [place] [phone] Ed Thomas, KAIN.TOW MATE [address] [place], [place] [phone] check up/pain (MyChart Request) [facility] [place] Comment on above: check up/pain (MyChart Request) Start: 01-01-2025 End: 01-01-2025 Patient encounter procedure 01/01/2025 9:00 AM EDT Office Visit Podiatry [address] [address] Suzanne Duval PA-C [address] [place] [address] DOS 12/03/2024 Podiatry Comment on above: DOS 12/03/2024 Start: 12-31-2024 End: 12-31-2024 Patient encounter procedure [facility] [place] Comment on above: med check follow up [...] 11/15/2024 8:40 AM EDT Appointment Radiology [address] [place] [address] 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 [address] [place] [address] Fredrick Boland DO [address] [place] [address] Follow up Family 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] Start: 10-31-2024 End: 10-31-2024 Follow-up encounter 10/31/2024 10:30 AM EDT Visit (SP) Office Hematology/Oncology [address] [place] [address] Martín Ballesteros DO [address] [place] [address] FOLLOW UP-DISCUSS LABS* Hematology/Oncology Comment on above: FOLLOW UP-DISCUSS LABS* Start: 10-29-2024 End: 10-29-2024 Nursing evaluation of patient and report 10/29/2024 1:00 PM EDT Nurse Visit [facility] [address] [facility] [place] [address] Ostomy Issues [facility] Comment on above: Ostomy Issues Start: 10-25-2024 End: 10-25-2024 Follow-up encounter 10/25/2024 9:30 AM EDT Visit (SP) Office Hematology/Oncology [address] [place], [place] [id number] Martín Ballesteros DO [address] [place], [place] [id number] FOLLOW UP-DISCUSS LABS* Hematology/Oncology Comment on above: FOLLOW UP-DISCUSS LABS* Start: 10-22-2024 End: 01-21-2025 25-hydroxyvitamin D3 [Mass/volume] in Serum or Plasma VITAMIN D 25 HYDROXY Lab STAT 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 Expected: 10/22/2024 (Approximate), Expires: 01/21/2025 [facility] Comment on above: Expected: 10/22/2024 (Approximate), Expi res: 01/21/2025 Start: 10-22-2024 End: 01-21-2025 Alpha tocopherol [Mass/volume] in Serum or Plasma VITAMIN E/TOCOPHEROL Lab STAT 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 Expected: 10/22/2024 (Approximate), Expires: 01/21/2025 [facility] Comment on above: Expected: 10/22/2024 (Approximate), Expi res: 01/21/2025 Start: 10-22-2024 End: 01-21-2025 AMINO ACIDS, PLASMA W/ CONSULTATION AMINO ACIDS, PLASMA W/ CONSULTATION Lab STAT 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 Expected: 10/22/2024 (Approximate), Expires: 01/21/2025 [facility] Comment on above: Expected: 10/22/2024 (Approximate), Expi res: 01/21/2025 Start: 10-22-2024 End: 01-21-2025 APC RESISTANCE APC RESISTANCE Lab STAT 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 Expected: 10/22/2024 (Approximate), Expires: 01/21/2025 [facility] Comment on above: Expected: 10/22/2024 (Approximate), Expi res: 01/21/2025 Start: 10-22-2024 End: 01-21-2025 aPTT in Platelet poor plasma by Coagulation assay ACTIVATED PARTIAL THROMBOPLASTIN TIME Lab STAT 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 Expected: 10/22/2024 (Approximate), Expires: 01/21/2025 [facility] Comment on above: Expected: 10/22/2024 (Approximate), Expi res: 01/21/2025 Start: 10-22-2024 End: 01-21-2025 Ascorbate [Mass/volume] in Serum or Plasma VITAMIN C Lab STAT 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 Expected: 10/22/2024 (Approximate), Expires: 01/21/2025 [facility] Comment on above: Expected: 10/22/2024 (Approximate), Expi res: 01/21/2025 Start: 10-22-2024 End: 01-21-2025 CBC W Auto Differential panel - Blood COMPLETE BLOOD COUNT AND DIFFERENTIAL Lab STAT 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 Expected: 10/22/2024 (Approximate), Expires: 01/21/2025 [facility] Comment on above: Expected: 10/22/2024 (Approximate), Expi res: 01/21/2025 Start: 10-22-2024 End: 01-21-2025 Cobalamin (Vitamin B12) [Mass/volume] in Serum or Plasma VITAMIN B12 Lab STAT 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 Expected: 10/22/2024 (Approximate), Expires: 01/21/2025 [facility] Comment on above: Expected: 10/22/2024 (Approximate), Expi res: 01/21/2025 Start: 10-22-2024 End: 01-21-2025 Comprehensive metabolic 2000 panel - Serum or Plasma COMPREHENSIVE METABOLIC PANEL Lab STAT 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 Expected: 10/22/2024 (Approximate), Expires: 01/21/2025 [facility] Comment on above: Expected: 10/22/2024 (Approximate), Expi res: 01/21/2025 Start: 10-22-2024 End: 01-21-2025 Ferritin [Mass/volume] in Serum or Plasma FERRITIN Lab STAT 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 Expected: 10/22/2024 (Approximate), Expires: 01/21/2025 [facility] Comment on above: Expected: 10/22/2024 (Approximate), Expi res: 01/21/2025 Start: 10-22-2024 End: 01-21-2025 Folate [Mass/volume] in Serum or Plasma FOLATE, SERUM Lab STAT 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 Expected: 10/22/2024 (Approximate), Expires: 01/21/2025 [facility] Comment on above: Expected: 10/22/2024 (Approximate), Expi res: 01/21/2025 Start: 10-22-2024 End: 01-21-2025 HYPERCOAG DIAG PNL HYPERCOAG DIAG PNL Lab STAT 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 Expected: 10/22/2024 (Approximate), Expires: 01/21/2025 [facility] Comment on above: Expected: 10/22/2024 (Approximate), Expi res: 01/21/2025 Start: 10-22-2024 End: 01-21-2025 Iron and Iron binding capacity panel - Serum or Plasma IRON AND TIBC Lab STAT 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 Expected: 10/22/2024 (Approximate), Expires: 01/21/2025 [facility] Comment on above: Expected: 10/22/2024 (Approximate), Expi res: 01/21/2025 Start: 10-22-2024 End: 01-21-2025 Magnesium [Mass/volume] in Serum or Plasma MAGNESIUM Lab STAT 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 Expected: 10/22/2024 (Approximate), Expires: 01/21/2025 [facility] Comment on above: Expected: 10/22/2024 (Approximate), Expi res: 01/21/2025 Start: 10-22-2024 End: 01-21-2025 Methylmalonate [Moles/volume] in Serum or Plasma METHYLMALONIC ACID Lab STAT 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 Expected: 10/22/2024 (Approximate), Expires: 01/21/2025 [facility] Comment on above: Expected: 10/22/2024 (Approximate), Expi res: 01/21/2025 Start: 10-22-2024 End: 01-21-2025 Niacin [Mass/volume] in Serum or Plasma VITAMIN B3/NIACIN Lab STAT 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 Expected: 10/22/2024 (Approximate), Expires: 01/21/2025 [facility] Comment on above: Expected: 10/22/2024 (Approximate), Expi res: 01/21/2025 Start: 10-22-2024 End: 01-21-2025 Parathyrin.intact [Mass/volume] in Serum or Plasma PTH INTACT Lab STAT 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 Expected: 10/22/2024 (Approximate), Expires: 01/21/2025 [facility] Comment on above: Expected: 10/22/2024 (Approximate), Expi res: 01/21/2025 Start: 10-22-2024 End: 01-21-2025 Phosphate [Mass/volume] in Serum or Plasma PHOSPHORUS INORGANIC Lab STAT 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 Expected: 10/22/2024 (Approximate), Expires: 01/21/2025 [facility] Comment on above: Expected: 10/22/2024 (Approximate), Expi res: 01/21/2025 Start: 10-22-2024 End: 01-21-2025 Prealbumin [Mass/volume] in Serum or Plasma PREALBUMIN Lab STAT 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 Expected: 10/22/2024 (Approximate), Expires: 01/21/2025 [facility] Comment on above: Expected: 10/22/2024 (Approximate), Expi res: 01/21/2025 Start: 10-22-2024 End: 01-21-2025 PT panel - Platelet poor plasma by Coagulation assay PROTHROMBIN TIME Lab STAT 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 Expected: 10/22/2024 (Approximate), Expires: 01/21/2025 [facility] Comment on above: Expected: 10/22/2024 (Approximate), Expi res: 01/21/2025 Start: 10-22-2024 End: 01-21-2025 Pyridoxine [Mass/volume] in Serum or Plasma VITAMIN B6/PYRIDOXIN Lab STAT 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 Expected: 10/22/2024 (Approximate), Expires: 01/21/2025 [facility] Comment on above: Expected: 10/22/2024 (Approximate), Expi res: 01/21/2025 Start: 10-22-2024 End: 01-21-2025 Retinol [Mass/volume] in Serum or Plasma VITAMIN A/RETINOL Lab STAT 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 Expected: 10/22/2024 (Approximate), Expires: 01/21/2025 [facility] Comment on above: Expected: 10/22/2024 (Approximate), Expi res: 01/21/2025 Start: 10-22-2024 End: 01-21-2025 Thyrotropin [Units/volume] in Serum or Plasma THYROID STIMULATING HORMONE Lab STAT 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 Expected: 10/22/2024 (Approximate), Expires: 01/21/2025 [facility] Comment on above: Expected: 10/22/2024 (Approximate), Expi res: 01/21/2025 Start: 10-22-2024 End: 01-21-2025 TOXICOLOGY PANEL BLD TOXICOLOGY PANEL BLD Lab STAT 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 Expected: 10/22/2024 (Approximate), Expires: 01/21/2025 [facility] Comment on above: Expected: 10/22/2024 (Approximate), Expi res: 01/21/2025 Start: 10-22-2024 End: 01-21-2025 TRACE ELEMENTS/TPN TRACE ELEMENTS/TPN Lab STAT 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 Expected: 10/22/2024 (Approximate), Expires: 01/21/2025 [facility] Comment on above: Expected: 10/22/2024 (Approximate), Expi res: 01/21/2025 Start: 10-22-2024 End: 01-21-2025 TYPE + SCREEN TYPE + SCREEN Blood Bank STAT 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 Expected: 10/22/2024 (Approximate), Expires: 01/21/2025 [facility] Work Phone: Comment on above: Expected: 10/22/2024 (Approximate), Expi res: 01/21/2025 Start: 10-22-2024 End: 10-22-2024 Patient encounter procedure 10/22/2024 11:00 AM EDT Office Visit Vascular Medicine [address] [place] [address] Akua Grigsby MD [address] [place] [address] 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 Comment on above: DX: SMA and leg arterial thrombosis Start: 10-17-2024 End: 10-17-2024 Patient encounter procedure General Surgery Comment on above: post op [facility] Start: 10-11-2024 End: 01-10-2025 TOXICOLOGY SCREEN, ROUTINE URINE TOXICOLOGY SCREEN, ROUTINE URINE Lab Routine 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 Expected: 10/11/2024, Expires: 01/10/2025 [facility] Comment on above: Expected: 10/11/2024, Expires: Start: 10-10-2024 End: 10-10-2024 Patient encounter procedure 10/10/2024 12:15 PM EDT Office Visit General Surgery [address] [address] Peter Smith MD [address] [place] [address] post op ACS General Surgery Comment on above: post op [facility] Start: 10-06-2024 End: 01-05-2025 CBC W Auto Differential panel - Blood COMPLETE BLOOD COUNT AND DIFFERENTIAL Lab Routine Anemia, unspecified type Expected: 10/06/2024, Expires: 01/05/2025 [facility] Comment on above: Expected: 10/06/2024, Expires: Start: 10-06-2024 End: 01-05-2025 Iron and Iron binding capacity panel - Serum or Plasma IRON AND TIBC Lab Routine Anemia, unspecified type Expected: 10/06/2024, Expires: 01/05/2025 [facility] Work Phone: Comment on above: Expected: 10/06/2024, Expires: Start: 10-02-2024 End: 10-02-2024 ambulatory 10/02/2024 3:00 PM EDT Visit (SP) Office Hematology/Oncology [address] [place] [address] Martín Ballesteros DO [address] [place] [address] DISC PAD GRINDER/DX: Hematology/Oncology Comment on above: DISC PAD GRINDER/DX: Start: 10-02-2024 End: 01-01-2025 B 2 GPI IGG & IGM [facility] Comment on above: Expected: 10/02/2024, Expires: Start: 10-02-2024 End: 01-01-2025 Cardiolipin IgG and IgM panel - Serum [facility] Comment on above: Expected: 10/02/2024, Expires: Start: 10-02-2024 End: 01-01-2025 Ferritin [Mass/volume] in Serum or Plasma [facility] Comment on above: Expected: 10/02/2024, Expires: Start: 10-02-2024 End: 01-01-2025 Iron and Iron binding capacity panel - Serum or Plasma [facility] Comment on above: Expected: 10/02/2024, Expires: Start: 10-02-2024 End: 01-01-2025 MONOCLONAL PROTEIN, SERUM (BLOOD) [facility] Work Phone: Comment on above: Expected: 10/02/2024, Expires: Start: 10-02-2024 End: 01-01-2025 PROTEIN C FUNCT [facility] Comment on above: Expected: 10/02/2024, Expires: Start: 10-02-2024 End: 01-01-2025 PROTEIN ELECTROPHORESIS SERUM W/INTERP [facility] Comment on above: Expected: 10/02/2024, Expires: Start: 10-02-2024 End: 01-01-2025 PROTEIN S CLOTTABLE [facility] Comment on above: Expected: 10/02/2024 (Approximate), Expi res: 01/01/2025 Start: 10-02-2024 End: 01-01-2025 PROTEIN S IMMUNO [facility] Comment on above: Expected: 10/02/2024, Expires: Start: 10-02-2024 End: 01-01-2025 Transferrin receptor.soluble [Mass/volume] in Serum or Plasma [facility] Comment on above: Expected: 10/02/2024, Expires: Start: 10-01-2024 End: 10-01-2024 Patient encounter procedure 10/01/2024 11:00 AM EDT Office Visit Vascular Medicine [address] [place] [address] Akua Grigsby MD [address] [place] [address] 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 Comment on above: DX: SMA and leg arterial thrombosis Start: 09-19-2024 End: 09-19-2024 Patient encounter procedure Vascular Surgery Comment on above: Hospital FU DX:SMA occlusion Start: 09-10-2024 End: 09-10-2024 Follow-up encounter 09/10/2024 2:00 PM EDT [facility] Psychiatry [address] [place] [phone] Clayton Angeles, CHANGE MANAGEMENT SPECIALIST.TOW MATE [address] [place] [address] Follow up Psychiatry Comment on [...] 06/25/2024 11:00 AM EST Office Visit Family Medicine [place] [address] [place] [address] Yesenia Rangel, CHANGE MANAGEMENT SPECIALIST.TOW MATE [address] [place] [address] physical Family Medicine [place] Comment on above: physical Start: 05-18-2024 End: 05-18-2024 ambulatory 05/18/2024 2:00 PM EST [facility] Psychiatry [address] [facility] [place] [phone] Clayton Angeles, CHANGE MANAGEMENT SPECIALIST.TOW MATE [address] [facility] [place] [phone] med check Psychiatry Comment on above: med check Start: 05-18-2024 End: 08-17-2024 BENZO CONFIRM, URINE BENZO CONFIRM, URINE Lab Routine Encounter for long-term (current) use of medications Expected: 05/18/2024, Expires: 08/17/2024 [facility] Comment on above: Expected: 05/18/2024, Expires: Start: 05-18-2024 End: 08-17-2024 CBC W Auto Differential panel - Blood COMPLETE BLOOD COUNT AND DIFFERENTIAL Lab Routine Encounter for long-term (current) use of medications Expected: 05/18/2024, Expires: 08/17/2024 [facility] Comment on above: Expected: 05/18/2024, Expires: 5 Start: 05-18-2024 End: 08-17-2024 Comprehensive metabolic 2000 panel - Serum or Plasma COMPREHENSIVE METABOLIC PANEL Lab Routine Encounter for long-term (current) use of medications Expected: 05/18/2024, Expires: 08/17/2024 [facility] Work Phone: Comment on above: Expected: 05/18/2024, Expires: 5 Start: 05-18-2024 End: 08-17-2024 Hemoglobin A1c in Blood HEMOGLOBIN A1C Lab Routine Encounter for long-term (current) use of medications Expected: 05/18/2024, Expires: 08/17/2024 [facility] Comment on above: Expected: 05/18/2024, Expires: Start: 05-18-2024 End: 08-17-2024 Lipid 1996 panel - Serum or Plasma LIPID PANEL BASIC Lab Routine Encounter for long-term (current) use of medications Expected: 05/18/2024, Expires: 08/17/2024 [facility] Comment on above: Expected: 05/18/2024, Expires: Start: 05-18-2024 End: 08-17-2024 PHOSPHATIDYLETHANOL (PETH) PHOSPHATIDYLETHANOL (PETH) Lab Routine Encounter for long-term (current) use of medications Expected: 05/18/2024, Expires: 08/17/2024 [facility] Comment on above: Expected: 05/18/2024, Expires: Start: 05-18-2024 End: 08-17-2024 Thyrotropin [Units/volume] in Serum or Plasma THYROID STIMULATING HORMONE Lab Routine Encounter for long-term (current) use of medications Expected: 05/18/2024, Expires: 08/17/2024 [facility] Comment on above: Expected: 05/18/2024, Expires: Start: 05-18-2024 End: 08-17-2024 TOXICOLOGY SCREEN, ROUTINE URINE TOXICOLOGY SCREEN, ROUTINE URINE Lab Routine Encounter for long-term (current) use of medications Expected: 05/18/2024, Expires: 08/17/2024 [facility] Comment on above: Expected: 05/18/2024, Expires: Start: 03-03-2024 End: 03-03-2024 Follow-up encounter 03/03/2024 1:00 PM EDT [facility] Psychiatry [address] [place] [phone] Clayton Angeles, CHANGE MANAGEMENT SPECIALIST.TOW MATE [address] [place] [phone] Follow up Psychiatry Comment on above: Follow up Start: 02-26-2024 Covid-19 Vaccine ( season) Covid-19 Vaccine ( season) [facility] Start: 02-26-2024 Covid-19 Vaccine ( season) Covid-19 Vaccine ( season) [facility] Start: 02-26-2024 Influenza vaccination [facility] Start: 01-19-2024 End: 01-19-2024 Follow-up encounter 01/19/2024 9:00 AM EDT [facility] Psychiatry [address] [place] [phone] Clayton Angeles, CHANGE MANAGEMENT SPECIALIST.TOW MATE [address] [facility] [place] [address] Follow up Psychiatry Comment on above: Follow up Start: 12-30-2023 End: 12-30-2023 Follow-up encounter 12/30/2023 2:00 PM EDT [facility] Psychiatry [address] [place] [phone] Clayton Angeles, CHANGE MANAGEMENT SPECIALIST.TOW MATE [address] [facility] [place] [phone] FOLLOW UP Psychiatry Comment on above: FOLLOW UP Start: 10-28-2023 End: 10-28-2023 Patient encounter procedure 10/28/2023 8:20 AM EDT Office Visit Family [place] [address] [place], [place] [phone] Fredrick Boland DO [address] [place], [place] [phone] missing periods Family Medicine [place] Comment on above: missing periods Start: 2023 Screening for malignant neoplasm of breast Mammogram Screening [facility] Start: 09-08-2023 End: 12-08-2023 TOX SCREEN ROUT UR TOX SCREEN ROUT UR Lab Routine Encounter for long-term (current) use of medications History of marijuana use Expected: 09/08/2023, Expires: 12/08/2023 [facility] Work Phone: Comment on above: Expected: 09/08/2023, Expires: Start: 09-02-2023 End: 12-02-2023 Comprehensive metabolic 2000 panel - Serum or Plasma COMP METABOLIC PANEL Lab Routine Encounter for long-term (current) use of medications Expected: 09/02/2023, Expires: 12/02/2023 [facility] Work Phone: Comment on above: Expected: 09/02/2023, Expires: Start: 09-02-2023 End: 12-02-2023 Hemoglobin A1c in Blood HGB A1C Lab Routine Encounter for long-term (current) use of medications Expected: 09/02/2023, Expires: 12/02/2023 [facility] Work Phone: Comment on above: Expected: 09/02/2023, Expires: Start: 09-02-2023 End: 12-02-2023 Lipid 1996 panel - Serum or Plasma LIPID PANEL BASIC Lab Routine Encounter for long-term (current) use of medications Expected: 09/02/2023, Expires: 12/02/2023 [facility] Work Phone: Comment on above: Expected: 09/02/2023, Expires: Start: 07-12-2023 HPV TESTING HPV TESTING [facility] Start: 07-12-2023 PAP TESTING PAP TESTING [facility] Start: 07-12-2023 Screening for malignant neoplasm of cervix [facility] Start: 06-27-2023 Depression Assessment Depression Assessment [facility] Start: 05-16-2023 End: 08-15-2023 Comprehensive metabolic 2000 panel - Serum or Plasma COMP METABOLIC PANEL Lab Routine Encounter for long-term (current) use of medications Expected: 05/16/2023, Expires: 08/15/2023 [facility] Work Phone: Comment on above: Expected: 05/16/2023, Expires: Start: 05-16-2023 End: 08-15-2023 Hemoglobin A1c in Blood HGB A1C Lab Routine Encounter for long-term (current) use of medications Expected: 05/16/2023, Expires: 08/15/2023 [facility] Work Phone: Comment on above: Expected: 05/16/2023, Expires: 4 Start: 05-16-2023 End: 08-15-2023 Lipid 1996 panel - Serum or Plasma LIPID PANEL BASIC Lab Routine Encounter for long-term (current) use of medications Expected: 05/16/2023, Expires: 08/15/2023 [facility] Work Phone: Comment on above: Expected: 05/16/2023, Expires: 4 Start: 03-04-2023 Adult depression screening assessment DEPRESSION SCREENING [facility] Start: 02-25-2023 Covid-19 Vaccine () Covid-19 Vaccine () [facility] Start: 02-25-2023 Influenza vaccination [facility] Start: 01-27-2023 Adult depression screening assessment DEPRESSION SCREENING [facility] Start: 12-24-2022 Influenza vaccination INFLUENZA (#1) [facility] Comment on above: Postponed from 02/25/2022 (Declined at t his time) Start: 12-23-2022 Adult depression screening assessment DEPRESSION SCREENING [facility] Start: 11-12-2022 Adult depression screening assessment DEPRESSION SCREENING [facility] Start: 10-28-2022 End: 12-28-2022 TOX SCREEN ROUT UR TOX SCREEN ROUT UR Lab Routine History of marijuana use Expected: 10/28/2022, Expires: 12/28/2022 [facility] Work Phone: Comment on above: Expected: 10/28/2022, Expires: 3 Start: 10-26-2022 Adult depression screening assessment DEPRESSION SCREENING [facility] Start: 09-30-2022 End: 11-30-2022 Basic metabolic 2000 panel - Serum or Plasma [facility] Work Phone: Comment on above: Expected: 09/30/2022, Expires: 3 Start: 09-30-2022 End: 11-30-2022 Choriogonadotropin ( test) [Presence] in Urine [facility] Work Phone: Comment on above: Expected: 09/30/2022, Expires: 3 Start: 09-30-2022 End: 11-30-2022 ETHYL GLUCURONIDE UR SCR [facility] Work Phone: Comment on above: Expected: 09/30/2022, Expires: 3 Start: 09-30-2022 End: 11-30-2022 TOX SCREEN ROUT UR [facility] Work Phone: Comment on above: Expected: 09/30/2022, Expires: 3 Start: 08-27-2022 Adult depression screening assessment DEPRESSION SCREENING [facility] Start: 07-20-2022 COVID-19 VACCINE (#1) COVID-19 VACCINE (#1) [facility] Comment on above: Postponed from 09/08/1988 (Declined at t his time) Postponed from 03/11 (Declined at this time) Start: 07-20-2022 COVID-19 VACCINE (1) COVID-19 VACCINE (1) [facility] Comment on above: Postponed from 09/08/1988 (Declined at t his time) Start: 07-05-2022 End: 09-04-2022 TOX SCREEN ROUT UR TOX SCREEN ROUT UR Lab Routine Marijuana use Expected: 07/05/2022, Expires: 09/04/2022 [facility] Work Phone: Comment on above: Expected: 07/05/2022, Expires: 3 Start: 06-27-2022 DEPRESSION ASSESSMENT DEPRESSION ASSESSMENT [facility] Start: 02-25-2022 Influenza vaccination [facility] Start: 02-02-2022 End: 04-04-2022 25-hydroxyvitamin D3 [Mass/volume] in Serum or Plasma VITAMIN D 25 HYDROXY Lab Routine Fatigue, unspecified type Myalgia Expected: 02/02/2022, Expires: 04/04/2022 [facility] Work Phone: Comment on above: Expected: 02/02/2022, Expires: 2 Start: 02-02-2022 End: 10-09-2022 C reactive protein [Mass/volume] in Serum or Plasma C-REACTIVE PROTEIN (CRP) Lab Routine Bilateral hand pain Foot pain, bilateral Expected: 02/02/2022, Expires: 04/04/2022 [facility] Work Phone: Comment on above: Expected: 02/02/2022, Expires: 2 Start: 02-02-2022 End: 04-04-2022 CBC W Auto Differential panel - Blood CBC + DIFF Lab Routine Fatigue, unspecified type Myalgia Expected: 02/02/2022, Expires: 04/04/2022 [facility] Work Phone: Comment on above: Expected: 02/02/2022, Expires: 2 Start: 02-02-2022 End: 04-04-2022 Cobalamin (Vitamin B12) [Mass/volume] in Serum or Plasma VITAMIN B12 BLOOD Lab Routine Fatigue, unspecified type Myalgia Expected: 02/02/2022, Expires: 04/04/2022 [facility] Work Phone: Comment on above: Expected: 02/02/2022, Expires: 2 Start: 02-02-2022 End: 04-04-2022 Comprehensive metabolic 2000 panel - Serum or Plasma COMP METABOLIC PANEL Lab Routine Fatigue, unspecified type Myalgia Expected: 02/02/2022, Expires: 04/04/2022 [facility] Work Phone: Comment on above: Expected: 02/02/2022, Expires: 2 Start: 02-02-2022 End: 04-04-2022 Cyclic citrullinated peptide IgG Ab [Units/volume] in Serum or Plasma CCP ANTIBODY IGG Lab Routine Bilateral hand pain Foot pain, bilateral Expected: 02/02/2022, Expires: 04/04/2022 [facility] Work Phone: Comment on above: Expected: 02/02/2022, Expires: 2 Start: 02-02-2022 End: 04-04-2022 Erythrocyte sedimentation rate SED RATE WESTERGREN Lab Routine Bilateral hand pain Foot pain, bilateral Expected: 02/02/2022, Expires: 04/04/2022 [facility] Work Phone: Comment on above: Expected: 02/02/2022, Expires: 2 Start: 02-02-2022 End: 04-04-2022 Extractable nuclear Ab panel - Serum ANTI ABIGAIL ID Lab Routine Bilateral hand pain Foot pain, bilateral Expected: 02/02/2022, Expires: 04/04/2022 [facility] Work Phone: Comment on above: Expected: 02/02/2022, Expires: 2 Start: 02-02-2022 End: 04-04-2022 Ferritin [Mass/volume] in Serum or Plasma FERRITIN BLD Lab Routine Myalgia Iron deficiency Expected: 02/02/2022, Expires: 04/04/2022 [facility] Work Phone: Comment on above: Expected: 02/02/2022, Expires: 2 Start: 02-02-2022 End: 04-04-2022 Iron and Iron binding capacity panel - Serum or Plasma IRON + TIBC Lab Routine Myalgia Iron deficiency Expected: 02/02/2022, Expires: 04/04/2022 [facility] Work Phone: Comment on above: Expected: 02/02/2022, Expires: 2 Start: 02-02-2022 End: 04-04-2022 Magnesium [Mass/volume] in Serum or Plasma MAGNESIUM BLD Lab Routine Bilateral hand pain Foot pain, bilateral Expected: 02/02/2022, Expires: 04/04/2022 [facility] Work Phone: Comment on above: Expected: 02/02/2022, Expires: 2 Start: 02-02-2022 End: 04-04-2022 Nuclear Ab [Presence] in Serum by Immunoassay ROBERTA BLOOD Lab Routine Bilateral hand pain Foot pain, bilateral Expected: 02/02/2022, Expires: 04/04/2022 [facility] Work Phone: Comment on above: Expected: 02/02/2022, Expires: 2 Start: 02-02-2022 End: 04-04-2022 Rheumatoid factor [Units/volume] in Serum or Plasma RHEUMATOID FACTOR BL Lab Routine Bilateral hand pain Foot pain, bilateral Expected: 02/02/2022, Expires: 04/04/2022 [facility] Work Phone: Comment on above: Expected: 02/02/2022, Expires: 2 Start: 01-11-2022 End: 03-13-2022 TOX SCREEN ROUT UR TOX SCREEN ROUT UR Lab Routine ELIJAH (generalized anxiety disorder) Expected: 01/11/2022, Expires: 03/13/2022 [facility] Work Phone: Comment on above: Expected: 01/11/2022, Expires: 2 Start: 10-27-2021 End: 12-27-2021 Comprehensive metabolic 2000 panel - Serum or Plasma COMP METABOLIC PANEL Lab Routine ELIJAH (generalized anxiety disorder) Bipolar 2 disorder (HCC) Expected: 10/27/2021, Expires: 12/27/2021 [facility] Work Phone: Comment on above: Expected: 10/27/2021, Expires: 2 Start: 10-27-2021 End: 12-27-2021 TOX SCREEN ROUT UR TOX SCREEN ROUT UR Lab Routine ELIJAH (generalized anxiety disorder) Bipolar 2 disorder (HCC) Expected: 10/27/2021, Expires: 12/27/2021 [facility] Work Phone: Comment on above: Expected: 10/27/2021, Expires: 2 Start: 09-08-2010 HPV Vaccine (1 - 3-dose SCDM series) HPV Vaccine (1 - 3-dose SCDM series) [facility] Start: 09-08-2002 Hepatitis B Vaccine (1 of 3 - 19+ 3-dose series) Hepatitis B Vaccine (1 of 3 - 19+ 3-dose series) [facility] Start: 09-08-2002 ONE PNEUMOVAX PRIOR TO AGE 65 ONE PNEUMOVAX PRIOR TO AGE 65 [facility] Start: 09-08-2002 Pneumococcal vaccination Pneumococcal Vaccine (1 of 2 - PCV) [facility] Start: 09-08-2001 Depression Screening Depression Screening [facility] Start: 09-08-2001 HEPATITIS C SCREENING HEPATITIS C SCREENING [facility] Start: 09-08-2001 Hepatitis C screening Hepatitis C Screening [facility] Start: 09-08-2001 HIV SCREENING HIV SCREENING [facility] Start: 09-08-2001 HIV screening HIV Screening [facility] Start: 09-08-1993 Glaucoma screening Dilated Retinal Exam [facility] Start: 09-08-1993 Hepatitis B screening Urine Albumin:Creatinine Ratio [facility] Start: 09-08-1989 PNEUMOCOCCAL (1 - PCV) PNEUMOCOCCAL (1 - PCV) [facility] Start: 09-08-1989 Pneumococcal vaccination [facility] Start: 03-11-1984 COVID-19 VACCINE (#1) COVID-19 VACCINE (#1) [facility] Start: 1985 HEPATITIS B (1 of 3 - 3-dose series) HEPATITIS B (1 of 3 - 3-dose series) [facility] Start: 1985 Hepatitis B Vaccine (1 of 3 - 3-dose series) Hepatitis B Vaccine (1 of 3 - 3-dose series) [facility] BETA 2 GLYCOPROTEIN, IGG BETA 2 GLYCOPROTEIN, IGG Lab Routine Antiphospholipid antibody syndrome (HCC) Superior mesenteric artery thrombosis (HCC) 10/02/2024 3:47 PM EDT [facility] BETA 2 GLYCOPROTEIN, IGM BETA 2 GLYCOPROTEIN, IGM Lab Routine Antiphospholipid antibody syndrome (HCC) Superior mesenteric artery thrombosis (HCC) 10/02/2024 3:47 PM EDT [facility] Cardiolipin IgA Ab [Units/volume] in Serum by Immunoassay CARDIOLIPIN IGA ABS Lab Routine Antiphospholipid antibody syndrome (HCC) Superior mesenteric artery thrombosis (HCC) 10/02/2024 3:47 PM EDT [facility] CARDIOLIPIN IGG ABS CARDIOLIPIN IGG ABS Lab Routine Antiphospholipid antibody syndrome (HCC) Superior mesenteric artery thrombosis (HCC) 10/02/2024 3:47 PM EDT [facility] CARDIOLIPIN IGM ABS CARDIOLIPIN IGM ABS Lab Routine Antiphospholipid antibody syndrome (HCC) Superior mesenteric artery thrombosis (HCC) 10/02/2024 3:47 PM EDT [facility] End: 11-10-2025 CT Chest W contrast IV CT CHEST W IVCON Radiology Routine Disorder of artery or arteriole 1 Occurrences starting 10/11/2024 until 11/10/2025 [facility] Comment on above: 1 Occurrences starting 10/11/2024 until 11/10/2025 End: 12-24-2022 ECG COMPLETE ECG COMPLETE ECG Routine ELIJAH (generalized anxiety disorder) 1 Occurrences starting 12/24/2021 until 12/24/2022 [facility] Work Phone: Comment on above: 1 Occurrences starting 12/24/2021 until 12/24/2022 End: 03-14-2024 ECG COMPLETE ECG COMPLETE ECG Routine Encounter for long-term (current) use of medications 1 Occurrences starting 03/14/2023 until 03/14/2024 [facility] Work Phone: Comment on above: 1 Occurrences starting 03/14/2023 until 03/14/2024 End: 05-18-2025 ECG COMPLETE ECG COMPLETE ECG Routine Encounter for long-term (current) use of medications 1 Occurrences starting 05/18/2024 until 05/18/2025 [facility] Comment on above: 1 Occurrences starting 05/18/2024 until 05/18/2025 ECG COMPLETE ECG COMPLETE ECG Routine Medication management Ordered: 08/07/2024 [facility] Work Phone: Comment on above: Ordered: 08/07/2024 End: 10-11-2025 EGD DIAGNOSTIC EGD DIAGNOSTIC Endoscopy Routine 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 1 Occurrences starting 10/11/2024 until 10/11/2025 [facility] Comment on above: 1 Occurrences starting 10/11/2024 until 10/11/2025 End: 10-11-2025 Flexible sigmoidoscopy study COLONOSCOPY DIAGNOSTIC Endoscopy Routine 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 1 Occurrences starting 10/11/2024 until 10/11/2025 [facility] Comment on above: 1 Occurrences starting 10/11/2024 until 10/11/2025 IMMUNOFIXATION SCREE N, SERUM IMMUNOFIXATION SCREEN, SERUM Lab Routine Antiphospholipid antibody syndrome (HCC) Superior mesenteric artery thrombosis (HCC) 10/02/2024 3:47 PM EDT [facility] KAPPA/JULIAN,FREE,SER KAPPA/JULIAN,F REE,SER Lab Routine Antiphospholipid antibody syndrome (HCC) Superior mesenteric artery thrombosis (HCC) 10/02/2024 3:47 PM EDT [facility] End: 11-17-2024 MG Breast Screening MILO SCREENING Radiology Routine Encounter for screening mammogram for breast cancer 1 Occurrences starting 10/19/2023 until 11/17/2024 [facility] Work Phone: Comment on above: 1 Occurrences starting 10/19/2023 until 11/17/2024 Protein [Mass/volume ] in Serum or Plasma PROTEIN, TOTAL Lab Routine Antiphospholipid antibody syndrome (HCC) Superior mesenteric artery thrombosis (HCC) 10/02/2024 3:47 PM EDT [facility] PROTEIN ELECTROPHORE SIS SERUM (P) PROTEIN ELECTROPHORESIS SERUM (P) Lab Routine Antiphospholipid antibody syndrome (HCC) Superior mesenteric artery thrombosis (HCC) 10/02/2024 3:47 PM EDT [facility] End: 11-10-2025 RF Colon Views W barium contrast ND XR COLON SINGLE CONTRAST Radiology Routine 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 1 Occurrences starting 10/11/2024 until 11/10/2025 [facility] Comment on above: 1 Occurrences starting 10/11/2024 until 11/10/2025 End: 11-10-2025 RF Gastrointestinal tract upper Views W barium contrast PO XR UPPER GI SINGLE CONTRAST Radiology Routine 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 1 Occurrences starting 10/11/2024 until 11/10/2025 [facility] Comment on above: 1 Occurrences starting 10/11/2024 until 11/10/2025 End: 09-11-2025 US Lower extremity artery - bilateral [facility] Work Phone: Comment on above: 1 Occurrences starting 09/11/2024 until 09/11/2025 End: 09-19-2025 US Lower extremity artery - bilateral [facility] Work Phone: Comment on above: 1 Occurrences starting 09/19/2024 until 09/19/2025 End: 03-04-2023 XR FOOT GENERAL 3V AP/LAT/OBL BILATERAL XR FOOT GENERAL 3V AP/LAT/OBL BILATERAL Radiology Routine Foot pain, bilateral 1 Occurrences starting 02/02/2022 until 03/04/2023 [facility] Work Phone: Comment on above: 1 Occurrences starting 02/02/2022 until 03/04/2023 End: 11-10-2025 XR GI SMALL BOWEL FOLLOW-THRU XR GI SMALL BOWEL FOLLOW-THRU Radiology Routine 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 1 Occurrences starting 10/11/2024 until 11/10/2025 [facility] Comment on above: 1 Occurrences starting 10/11/2024 until 11/10/2025 End: 03-04-2023 XR HAND GENERAL 3V PA/LAT/OBL BILATERAL XR HAND GENERAL 3V PA/LAT/OBL BILATERAL Radiology Routine Bilateral hand pain 1 Occurrences starting 02/02/2022 until 03/04/2023 [facility] Work Phone: Comment on above: 1 Occurrences starting 02/02/2022 until 03/04/2023 [facility] Immunizations Immunization Date Immunization Notes Care Provider [facility] 05-21-2019 tetanus toxoid, redu leilani diphtheria toxoid, and acellular pertussis vaccine, adsorbed Room Emergency [facility] 07-12-2018 influenza virus vacc ine, unspecified formulation Clayton Angeles APRN.CNP Work Phone: [facility] Payers Date Payer Category Payer Self-pay 2022 Unknown [id number] 2014 Medicaid [place] [employer] [place] [employer] [id number] 2014-Present [phone] [address] [place] [address] Medicaid [id number] 2014 Medicaid [id number]. [id number] 1983 Unknown [id number] 2.16.840.1.016767.3.579.2.66 8 1983 Unknown [id number] 2.16.840.1.897402.3.579.2.65 1 1983 Unknown [id number] 2.16.840.1.395181.3.579.2.65 1 1983 Unknown [id number] 2.16.840.1.969138.3.579.2.65 1 1983 Unknown [id number] 2.16.840.1.181416.3.579.2.65 1 1983 Unknown [id number] 2.16.840.1.657791.3.579.2.65 1 Unknown [id number] 2.16.840.1.491311.3.579.2.46 2 Unknown [id number] 2.16.840.1.182497.3.579.2.46 2 Unknown [id number] 2.16.840.1.019789.3.579.2.46 2 Unknown [id number] 2.16.840.1.945888.3.579.2.46 2 Unknown [id number] 2.16.840.1.758910.3.579.2.46 2 Unknown [id number] 2.16.840.1.538432.3.579.2.46 2 Unknown [id number] 2.16.840.1.769961.3.579.2.46 2 Unknown [id number] 2.16.840.1.204360.3.579.2.46 2 Unknown [id number] 2.16.840.1.300749.3.579.2.46 2 Unknown [id number] 2.16.840.1.573347.3.579.2.46 2 Unknown [id number] 2.16.840.1.195092.3.579.2.46 2 Unknown [id number] 2.16.840.1.755832.3.579.2.46 2 Unknown [id number] 2.16.840.1.258602.3.579.2.46 2 Unknown [id number] 2.16.840.1.192345.3.579.2.46 2 Unknown [id number] 2.16.840.1.605971.3.579.2.46 2 Unknown [id number] 2.16.840.1.491085.3.579.2.46 2 Unknown [id number] 2.16.840.1.493656.3.579.2.46 2 Unknown [id number] 2.16.840.1.316204.3.579.2.46 2 Unknown [id number] 2.16.840.1.705666.3.579.2.46 2 Unknown [id number] 2.16.840.1.899841.3.579.2.46 2 Unknown [id number] 2.16.840.1.226531.3.579.2.46 2 Unknown [id number] 2.16.840.1.083425.3.579.2.46 2 Unknown [id number] 2.16.840.1.752698.3.579.2.46 2 Unknown [id number] 2.16.840.1.065252.3.579.2.46 2 Unknown [id number] 2.16.840.1.286658.3.579.2.46 2 Unknown [id number] 2.16.840.1.666204.3.579.2.46 2 Unknown [id number] 2.16.840.1.681022.3.579.2.46 2 Unknown [id number] 2.16.840.1.407692.3.579.2.46 2 Unknown [id number] 2.16.840.1.566477.3.579.2.46 2 Unknown [id number] 2.16.840.1.054531.3.579.2.46 2 Unknown [id number] 2.16.840.1.711935.3.579.2.46 2 Worker's Compensation Social History Date Type Detail Facility Start: 07-18-2019 End: 09-19-2024 Tobacco smoking status NHIS Smokes tobacco daily [facility] Work Phone: End: 04-13-2015 History of tobacco use Smoker [facility] Work Phone: Start: 07-18-2019 End: 10-02-2024 Tobacco use and exposure Smokeless tobacco non-user [facility] Work Phone: Start: 10-10-2021 End: 08-20-2024 Alcohol intake Current drinker of alcohol (finding) [facility] Start: 07-18-2021 History SDOH Alcohol Frequency 4 [facility] Start: 07-18-2021 End: 07-13-2022 History SDOH Alcohol Std Drinks 2 [facility] Start: 07-18-2021 End: 07-13-2022 History SDOH Social Connections Mosque 1 [facility] Start: 07-18-2021 End: 07-13-2022 History SDOH Social Connections Living 7 [facility] Start: 07-18-2021 End: 07-13-2022 History SDOH Stress 5 [facility] Start: 11-07-2019 Education 21 [facility] Start: 1985 Sex Assigned At Not on file C [facility] Start: 09-30-2021 End: 10-10-2021 Exposure to SARS-CoV-2 (event) Yes [facility] Start: 02-10-2021 End: 03-29-2022 Exposure to SARS-CoV-2 (event) Not sure [facility] End: 04-13-2015 History of tobacco use Cigarette Smoker [facility] Work Phone: Start: 07-13-2022 History SDOH Alcohol Std Drinks 0 [facility] Start: 07-13-2022 History SDOH Physica l Activity MPS 3 [facility] Start: 07-12-2022 End: 01-28-2025 History of Social function [facility] Start: 07-12-2022 End: 01-28-2025 Social connection and isolation panel [facility] Do you belong to any clubs or organizations such as adventism groups, unions, fraternal or athletic groups, or school groups? No [facility] Are you now , , , , never or living with a partner? Never [facility] How often to you hav e a drink containing alcohol? Never [facility] Start: 05-28-[address] inks containing alcohol do you have on a typical day? Patient does not drink [facility] How hard is it for y ou to pay for the very basics like food, housing, medical care, and heating Very hard [facility] Do you feel stress - tense, restless, nervous, or anxious, or unable to sleep at night because your mind is troubled all the time - these days [OSQ] Very much [facility] (I/We) worried wheth er (my/our) food would run out before (I/we) got money to buy more. Often true [facility] Are you now , , , , never or living with a partner? Living with partner [facility] How often to you hav e a drink containing alcohol? 2-4 times a month [facility] How many standard dr inks containing alcohol do you have on a typical day? 3 or 4 [facility] How often do you hav e 6 or more drinks on 1 occasion? Less than monthly [facility] How hard is it for y ou to pay for the very basics like food, housing, medical care, and heating Somewhat hard [facility] (I/We) worried wheth er (my/our) food would run out before (I/we) got money to buy more. Never true [facility] (I/We) worried wheth er (my/our) food would run out before (I/we) got money to buy more. Sometimes true [facility] Start: 09-19-2024 Tobacco Comment Pateint only u ses the Vape She doesnt smoke nicotine [facility] Start: 10-02-2024 Tobacco smoking stat us NHIS Ex-smoker [facility] Start: 10-02-2024 End: 01-28-2025 Alcoholic beverage intake Ex-drinker (finding) [facility] Start: 10-02-2024 Tobacco Comment Pateint only u ses the Vape She doesnt smoke nicotine Patient quit smoking 08/20/2024 [facility] Medical Equipment Procedure Code Equipment Code Equipment Origin al Text Equipment Identifier Dates Catheter Sampson Surecuff 9.6fr 3.2mm 1.6mm 2 Branch 90cm Central Venous 1 - [id number] Start: 08-26-2024 Ivan Powerpicc 5 fr .018in Nitinol 70cm Catheter 2 Lumen Guidewire - [id number] Start: 12-08-2024 Goals Date Patient Goal Desired Activity /State Personal health goal Personal health goal Functional Status Date Assessment Result Facility 12-21-2024 Are you deaf, or do you have serious difficulty hearing No 12/21/2024 2:10 PM EDT Morena Toth RN No [facility] 12-21-2024 Are you blind, or do you have serious difficulty seeing, even when wearing glasses No 12/21/2024 2:10 PM EDT Morena Toth, NATHANAEL No [facility] 12-21-2024 Do you have serious difficulty walking or climbing stairs No 12/21/2024 2:10 PM EDT Morena Toth, NATHANAEL No [facility] 12-21-2024 Do you have difficul ty dressing or bathing No 12/21/2024 2:10 PM EDT Morena Toth, NATHANAEL [facility] 12-21-2024 Because of a physica l, mental, or emotional condition, do you have difficulty doing errands alone such as visiting a physician's office or shopping No 12/21/2024 2:10 PM EDT Morena Toth, NATHANAEL No [facility] 10-26-2024 Are you deaf, or do you have serious difficulty hearing No 10/26/2024 4:40 PM EDT Lyla Sullivan, NATHANAEL No [facility] 10-26-2024 Are you blind, or do you have serious difficulty seeing, even when wearing glasses No 10/26/2024 4:40 PM EDT Lyla Sullivan, NATHANAEL No [facility] 10-26-2024 Do you have serious difficulty walking or climbing stairs No 10/26/2024 4:40 PM EDT Lyla Sullivan, NATHANAEL No [facility] 10-26-2024 Do you have difficul ty dressing or bathing No 10/26/2024 4:40 PM EDT Lyla Sullivan, NATHANAEL No [facility] 10-26-2024 Because of a physica l, mental, or emotional condition, do you have difficulty doing errands alone such as visiting a physician's office or shopping No 10/26/2024 4:40 PM [place] Lyla Sullivan, NATHANAEL No [facility] 09-03-2024 Are you deaf, or do you have serious difficulty hearing No 09/03/2024 8:13 PM Annabella Ramachandran, NATHANAEL No [facility] 09-03-2024 Are you blind, or do you have serious difficulty seeing, even when wearing glasses No 09/03/2024 8:13 PM Annabella Ramachandran, NATHANAEL No [facility] 09-03-2024 Do you have serious difficulty walking or climbing stairs No 09/03/2024 8:13 PM Annabella Ramachandran, NATHANAEL No [facility] 09-03-2024 Do you have difficul ty dressing or bathing No 09/03/2024 8:13 PM Annabella Ramachandran, NATHANAEL No [facility] 09-03-2024 Because of a physica l, mental, or emotional condition, do you have difficulty doing errands alone such as visiting a physician's office or shopping Yes 09/03/2024 8:13 PM Annabella Ramachandran, NATHANAEL Yes [facility] 01-28-2015 Are you deaf, or do you have serious difficulty hearing No 01/28/2015 11:33 AM Jennifer Davis MA No [facility] 01-28-2015 Are you blind, or do you have serious difficulty seeing, even when wearing glasses No 01/28/2015 11:33 AM Jennifer Davis MA No [facility] 01-28-2015 Do you have serious difficulty walking or climbing stairs No 01/28/2015 11:33 AM Jennifer Davis MA No [facility] 01-28-2015 Do you have difficul ty dressing or bathing No 01/28/2015 11:33 AM Jennifer Davis MA No [facility] 01-28-2015 Because of a physica l, mental, or emotional condition, do you have difficulty doing errands alone such as visiting a physician's office or shopping No 01/28/2015 11:33 AM EDT Jennifer Hilliard MA No [facility] Mental Status Date Assessment Result Facility 12-21-2024 Because of a physica l, mental, or emotional condition, do you have serious difficulty concentrating, remembering, or making decisions No 12/21/2024 2:10 PM EDT Morena Toth, NATHANAEL No [facility] 10-26-2024 Because of a physica l, mental, or emotional condition, do you have serious difficulty concentrating, remembering, or making decisions No 10/26/2024 4:40 PM EDT Lyla Sullivan RN No [facility] 09-03-2024 Because of a physica l, mental, or emotional condition, do you have serious difficulty concentrating, remembering, or making decisions No 09/03/2024 8:13 PM EDT Annabella Jarquin RN No [facility] 01-28-2015 Because of a physica l, mental, or emotional condition, do you have serious difficulty concentrating, remembering, or making decisions Yes 01/28/2015 11:33 AM EDT Jennifer Hilliard MA Yes [facility] Clinical Notes 11-22-2017 to 02-11-2025 Telephone Encounter - Lauren Hull MA - 02/11/2025 3:46 PM EDTTelephone Encounter - Lauren Hull MA - 02/11/2025 3:46 PM EDTTelephone Encounter - Lauren Hull MA - 02/11/2025 3:45 PM EDT Note Date & Type Note Facility 02-11-2025 Telephone encounter Note Please see pt message and advise. Once complete, send to information below from pt and update via Lang [facility]. Lauren Hull MA Pt message: I need a doctor's referral for a physical capacity assessment, for a disability claim. [facility] in [place] ([phone]) or [facility] in [place] (fax [phone]). I greatly appreciate it. Daly [facility] 02-11-2025 Miscellaneous Notes Please see pt message and advise. Once complete, send to information below from pt and update via [employer] [facility]. Lauren Hull MA Pt message: I need a doctor's referral for a physical capacity assessment, for a disability claim. I can go to [facility] in [place] ([phone]) or [facility] in [place] (fax [phone]). I greatly appreciate it. Daly documented in this encounter [facility] 02-11-2025 Telephone encounter Note Turned into TE and routed to PCP to advise. Lauren Hull MA [facility] 02-11-2025 Miscellaneous Notes Turned into TE and routed to PCP to advise. Lauren Hull MA documented in this encounter [facility] 02-08-2025 Telephone encounter Note Study Title: IRB: [id number] Caring for OutPatiEnts after Acute Kidney Injury (COPE-JONATAN) trial PI: Dr. Juan Manuel Byrd Date: 02/08/2025 Visit #: Week 7 post Index hospitalization I called the patient to follow up on her participation in the COPE-JONATAN study. msg left to return my call. Chart review completed for the following: Access patients data on [facility] dashboard:N/A - device use history not recorded Update Medical/Surgical History - reviewed and updated Assess for AE's - reviewed and updated - no new reportable events since hospital discharge on 12/21/2024 Concomitant Medications: reviewed and updated for recommendations by Family Medicine provider on 01/28/2025. Potential Problems/Barriers to Care identified: [x] Disease Management - lab results from 01/28/2025 reviewed [] Health Insurance/Financial Concerns [] Transportation To and From Clinic [] Physical Needs [] Communication/Cultural Needs Next Nurse Navigator phone follow-up call due in 2-3 days, [facility] Amy Marii [facility] February 08, 2025 4:22 PM [facility] 02-08-2025 Miscellaneous Notes Study Title: IRB: [id number] Caring for OutPatiEnts after Acute Kidney Injury (COPE-JONATAN) trial PI: Dr. Juan Manuel Byrd Date: 02/08/2025 Visit #: Week 7 post Index hospitalization I called the patient to follow up on her participation in the COPE-JONATAN study. msg left to return my call. Chart review completed for the following: Access patients data on Teachableboard:N/A - device use history not recorded Update Medical/Surgical History - reviewed and updated Assess for AE's - reviewed and updated - no new reportable events since hospital discharge on 12/21/2024 Concomitant Medications: reviewed and updated for recommendations by Family Medicine provider on 01/28/2025. Potential Problems/Barriers to Care identified: [x] Disease Management - lab results from 01/28/2025 reviewed [] Health Insurance/Financial Concerns [] Transportation To and From Clinic [] Physical Needs [] Communication/Cultural Needs Next Nurse Navigator phone follow-up call due in 2-3 days, pending return call [facility]. Amy Marii [facility] February 08, 2025 4:22 PM documented in this encounter [facility] 02-07-2025 Telephone encounter Note Prescription for Flagyl sent to local pharmacy. Sandra Castle PA-C [facility] 02-07-2025 Miscellaneous Notes Prescription for Flagyl sent to local pharmacy. Sandra Castle PA-C I called Daly to get more information. She said her stomach has been rumbling violently. She is having a lot of gas and bloating. She has a little bit of nausea, and no vomiting. Pt is eating and drinking ok. Patient said her weight was 172 lbs. Pt admits she stopped her TPN abruptly. Pt was seen by PCP a couple of weeks ago and her gilberto were removed and they put her on coumadin. She sees the nurse practitioner every couple of weeks. They did a full metabolic panel last week and pt reports that everything was ok rather than Pt has 3-8 BMs daily and the stools are more watery. Pt says that there has been no change in consistency of stools with the abdominal rumbling and gas over the last 2 1/2 days or so. No drug allergies other than hydrocodone. Pt states abdominal incision is well healed. I told her I will discuss her symptoms with the PA and then send her a my chart message. I called TRACEE Pressley and discussed the above and she agreed to prescribe 7-day course of Flagyl. Order routed to Sandra for signature. Pt notified via my chart. documented in this encounter [facility] 02-07-2025 Telephone encounter Note I called Daly to get more information. She said her stomach has been rumbling violently. She is having a lot of gas and bloating. She has a little bit of nausea, and no vomiting. Pt is eating and drinking ok. Patient said her weight was 172 lbs. Pt admits she stopped her TPN abruptly. Pt was seen by PCP a couple of weeks ago and her gilberto were removed and they put her on coumadin. She sees the nurse practitioner every couple of weeks. They did a full metabolic panel last week and pt reports that everything was ok rather than Pt has 3-8 BMs daily and the stools are more watery. Pt says that there has been no change in consistency of stools with the abdominal rumbling and gas over the last 2 1/2 days or so. No drug allergies other than hydrocodone. Pt states abdominal incision is well healed. I told her I will discuss her symptoms with the PA and then send her a my chart message. I called TRACEE Pressley and discussed the above and she agreed to prescribe 7-day course of Flagyl. Order routed to Sandra for signature. Pt notified via my chart. [facility] 01-28-2025 Instructions Ed Thomas APRN.JUANY - 01/28/2025 2:35 PM EDT Get your labs on your way out today documented in this encounter [facility] 01-28-2025 History of Present illness Narrative [...] suicide (HCC) polysubstance Bipolar depression (HCC) [facility] Gestational diabetes mellitus in [...] needing to have her picc line removed. BRASS POURER calling wound center to see if they are comfortable doing so. Labs being drawn today. Discussed treatment plan and patient voices understanding. Patient's questions answered appropriately. Medications and potential side effects were discussed and patient voices understanding. Return to the office as scheduled or as needed for worsening/no improvement. Ed Thomas APRN.TOW MATE Recording using [employer] software for draft documentation of the visit was discussed with the patient/authorized risk control field representative; all questions welcomed and answered. Patient/authorized risk control field representative agreed to proceed documented in this encounter [facility] 01-28-2025 Telephone encounter Note Study Title: [...] Reminder re: Other Provider Follow-up appointments: [] [facility]SE[facility] Study Pharmacist [] PCP [] Other provider Next Nurse Navigator phone follow-up call due in 2 weeks. Jigna Montalvo January 28, 2025 12:18 PM [facility] 01-28-2025 Miscellaneous Notes Study Title: IRB: [...] Reminder re: Other Provider Follow-up appointments: [] [facility]SE[facility] Study Pharmacist [] PCP [] Other provider Next Nurse Navigator phone follow-up call due in 2 weeks. Jigna Montalvo January 28, 2025 12:18 PM documented in this encounter [facility] 01-24-2025 Telephone encounter Note Home Nutrition Support Service Dr. Elaine responded and said he agrees we should not manage patient again in the future if she were to require PN again. Routed letter to Dr. Montoya and Tabatha Jalloh for review and signature, to then be mailed via certified and regular mail alerting patient to this. Email omQuri alerting them of situation. Signoff orders and [...] given severe non-compliance - Email sent to [facility] as on situation - PICC removal order faxed to infusion center. Infusion center will call patient to schedule removal - HNS episode closed Bisi Seo RD, LD, CNSC [facility] Work Phone: 01-24-2025 Miscellaneous Notes Home Nutrition Support Service Dr. Elaine responded and said he agrees we should not manage patient again in the future if she were to require PN again. Routed letter to Dr. Montoya and Tabatha Jalloh for review and signature, to then be mailed via certified and regular mail alerting patient to this. Email omQuri alerting them of situation. Signoff orders and [...] given severe non-compliance - Email sent to [facility] as ZACK on situation - PICC removal order faxed to infusion center. Infusion center will call patient to schedule removal - HNS episode closed Bisi Seo RD, LD, CNSC documented in this encounter [facility] 01-24-2025 Telephone encounter Note Called spoke with pt gave information provided. Pt voices understanding. [facility] 01-24-2025 Miscellaneous Notes Called spoke with pt gave information provided. Pt voices understanding. Images from the original note were not included. Ed Thomas APRN.TOW MATE to [facility] Rafael Antonio 01/24/25 8:59 AM Result Note Call placed [...] went over results, notes from Ed Thomas DISC PAD GRINDER with understanding. documented in this encounter [facility] 01-24-2025 Telephone encounter Note Images from the original note were not included. Ed Thomas APRN.TOW MATE to [facility] [place] Antonio 01/24/25 8:59 AM Result Note Call placed [...] went over results, notes from Ed Thomas DISC PAD GRINDER with understanding. [facility] 01-23-2025 Telephone encounter Note Agree that we should not manage in the future. Very sad for her. Farzaneh Elaine MD January 23, 2025 [facility] Work Phone: 01-23-2025 Miscellaneous Notes Agree that we should not manage in the future. Very sad for her. Farzaneh Elaine MD January 23, 2025 Home Nutrition Support Service Received email from [facility] that patient is refusing delivery/all future PN [...] non-compliance letter to patient and email to [facility] once confirmed with Dr. Montoya and Dr. Elaine that HNS would not manage in future if patient were to need PN given severe non-compliance and complete self-weaning of PN. Reccs: - Sign off orders sent to [facility] as patient self-weaned her PN completely and is refusing all PN deliveries - [facility] for [facility] and routed to Dr. Montoya for signature - Encounter routed to Dr. Montoya and Dr. Elaine to confirm that HNS would not manage in the future should patient need PN again given severe non-compliance and complete self-weaning of PN. Also routed to Transplant as an FYI/update on PN Bisi Seo RD, LD, CNSC documented in this encounter [facility] 01-23-2025 Telephone encounter Note Home Nutrition Support Service Received email from [facility] that patient is refusing delivery/all future PN [...] non-compliance letter to patient and email to [facility] once confirmed with Dr. Montoya and Dr. Elaine that HNS would not manage in future if patient were to need PN given severe non-compliance and complete self-weaning of PN. Reccs: - Sign off orders sent to [facility] as patient self-weaned her PN completely and is refusing all PN deliveries - Order for PICC removal pended in [facility] and routed to Dr. Montoya for signature - Encounter routed to Dr. Montoya and Dr. Elaine to confirm that HNS would not manage in the future should patient need PN again given severe non-compliance and complete self-weaning of PN. Also routed to Transplant as an FYI/update on PN Bisi Seo RD, LD, CNSC [facility] Work Phone: 01-17-2025 Telephone encounter Note [...] given K+ was 2.6 last week Bisi Kabat, RD, LD, CNSC [facility] Work Phone: 01-17-2025 Miscellaneous Notes Home [...] Dr. Devine that she needs to discontinue. [phone] documented in this encounter [facility] 01-17-2025 Telephone encounter Note Pt called to discuss weaning TPN. Has been told by Dr. Devine that she needs to discontinue. [phone] [facility] 01-14-2025 Telephone encounter Note Call placed to Daly about her lab work and inquiring if she picked up the lovenox and warfarin and if anyone followed up with her on the labs. She stated no, she did cook pickled meat the warfarin and started that on Tuesday. She said all the pharmacies were out of lovenox injections. Ordered an INR and told her to get it drawn tomorrow. Ed Thomas APRN.JUANY [facility] 01-14-2025 Miscellaneous Notes Call placed to Daly about her lab work and inquiring if she picked up the lovenox and warfarin and if anyone followed up with her on the labs. She stated no, she did cook pickled meat the warfarin and started that on Tuesday. She said all the pharmacies were out of lovenox injections. Ordered an INR and told her to get it drawn tomorrow. Ed Thomas APRN.CNP documented in this encounter [facility] 01-11-2025 Instructions Clayton Angeles APRN.CNP - 01/11/2025 4:32 PM EDT We discussed your anxiety and mental health: - You are experiencing intrusive thoughts, primarily about your health and the future, as well as some panic attacks. - To help manage your anxiety, we will gradually increase your Lexapro dose: - Start taking 30 mg daily (20 mg + 10 mg). This prescription has been sent to your [facility] pharmacy in [place]. - If you experience any gastrointestinal side [...] --call the National Suicide Prevention Lifeline at 988 (794-842-9899) --text the Crisis Text Line (text HOME to 325274) --call 911 and let them know you are having a mental health crisis or go to your nearest Emergency Room for stabilization. --You can also call Mobile Crisis at [phone]. -- You may call the department appointment line at [phone] to schedule your appointment. -- Please call my nurse at [phone] or send me a message in [employer] with any questions or concerns between appointments. documented in this encounter [facility] 01-11-2025 History of Present illness Narrative [...] visit. Either the patient or their legal risk control field representative has been informed of the risks and benefits of -- and alternatives to -- treatment through a remote evaluation and consents to proceed with the evaluation remotely. Recording using ambient [employer] software for draft documentation of the visit was discussed with the patient/authorized risk control field representative; all questions welcomed and answered. Patient/authorized risk control field representative agreed to proceed CC: Outpatient follow-up [...] 20 mg during her hospital stay at [facility], reportedly due to concerns about gut [...] suicide (HCC) polysubstance Bipolar depression (HCC) [facility] Gestational diabetes mellitus in ([facility]) Impaired fasting blood sugar 06/2015 a1c 5.7% [...] ON PSYCHOTHERAPY CODE : No SIGNATURE: Clayton Angeles APRN.CNP PATIENT NAME: Daly Evans DATE: January 11, 2025 TIME: 3:12 PM documented in this encounter [facility] 01-10-2025 Instructions Ed Thoams APRN.JUANY - 01/10/2025 2:51 PM EDT Do the [...] in next week documented in this encounter [facility] 01-10-2025 History of Present illness Narrative [...] suicide (HCC) polysubstance Bipolar depression (HCC) [facility] Gestational diabetes mellitus in (HCC) [...] which included preparing to see the patient, [id number] patient care, obtaining and/or reviewing separately obtained [...] as needed for worsening/no improvement. Ed Thomas APRN.TOW MATE Recording using OR [employer] software for draft documentation of the visit was discussed with the patient/authorized risk control field representative; all questions welcomed and answered. Patient/authorized risk control field representative agreed to proceed documented in this encounter [facility] 01-10-2025 Telephone encounter Note Home Nutrition [...] week to include CRP Mayra Alexandre RD [facility] 01-10-2025 Miscellaneous Notes Home Nutrition Support [...] follow up. ED visit [facility] though may have gone to local ED not viewable in [facility]/Care everywhere. No answer, LVM. Rec: await return call Satish Haider RD, DEON, CNSC Home Nutrition Support Service Lab called this afternoon w/ a critical level. Pt had a potassium level of 2.6 today. Call to nilson, who reports she feels lightheaded and dizzy. She missed a bag of TPN this last week and thinks it was before the lab was drawn. Given these symptoms patient agreeable to go to the ED for repletion. Noted that [facility] has not been able to get ahold of patient since discharge, and these labs are overdue from 12/31. Discussed this w/ patient and she agreed to call [facility] back tomorrow so we can discuss overall plan/ New Patient Week 1. Recs: - Await ED outcome Mayra Alexandre RD documented in this encounter [facility] 01-10-2025 Telephone encounter Note Home Nutrition Support Service Call to pt to follow up. ED visit not [facility] though may have gone to local ED not viewable in [facility]Care everywhere. No answer, LVM. Rec: await return call Satish Haider RD, LD, CNSC [facility] Work Phone: 07-16-2025 Telephone encounter Note Study Title: IRB: 23-738 Caring for OutPatiEnts after Acute Kidney Injury (COPE-JONATAN) trial PI: Dr. Juan Manuel Byrd Date: 01/09/2025 Visit #: Week 3 post Index hospitalization I called the patient to follow up on her participation in the COPE-JONATAN study. Phone conversation and chart review completed for the following: Access patients data on [employer] dashboard: N/A -[employer] devices not in use. [...] Provider Follow-up appointments: [x] COPE Study Team, [facility] follow-up due between 01/13 - 01/27/2025 [] PCP [] Other provider Next Nurse Navigator phone follow-up call due at 5-weeks post-hospital discharge, on or before 01/25/2025. Patient verbalized understanding. Amy Rasmussen January 09, 2025 11:16 AM [facility] 01-09-2025 Miscellaneous Notes Study Title: IRB: 23-738 Caring for OutPatiEnts after Acute Kidney Injury (COPE-JONATAN) trial PI: Dr. Juan Manuel Byrd Date: 01/09/2025 Visit #: Week 3 post Index hospitalization I called the patient to follow up on her participation in the COPE-JONATAN study. Phone conversation and chart review completed for the following: Access patients data on [employer] dashboard: N/A -[employer] devices not in use. [...] Provider Follow-up appointments: [x] COPE Study Team, [facility] follow-up due between 01/13 - 01/27/2025 [] PCP [] Other provider Next Nurse Navigator phone follow-up call due at 5-weeks post-hospital discharge, on or before 01/25/2025. Patient verbalized understanding. Amy Marii [facility] January 09, 2025 11:16 AM documented in this encounter [facility] 01-08-2025 Telephone encounter Note Home Nutrition Support Service Lab called this afternoon w/ a critical level. Pt had a potassium level of 2.6 today. Call to nilson, who reports she feels lightheaded and dizzy. She missed a bag of TPN this last week and thinks it was before the lab was drawn. Given these symptoms patient agreeable to go to the ED for repletion. Noted that [facility] has not been able to get ahold of patient since discharge, and these labs are overdue from 12/31. Discussed this w/ patient and she agreed to call [facility] back tomorrow so we can discuss overall plan/ New Patient Week 1. Recs: - Await ED outcome Mayra Alexandre RD [facility] 01-07-2025 Telephone encounter Note Record ID: [id number] Patient name: Daly Evans Date: January 07, 2025 - 12:02 Administered by: LARRY Protocol: -> Great! Now [...] was moved to different rooms five times [facility] 01-07-2025 Miscellaneous Notes Record ID: [id number] Patient name: Daly Evans Date: January 07, 2025 - :02 Administered by: LARRY Protocol: -> Great! Now [...] rooms five times documented in this encounter [facility] 01-04-2025 Telephone encounter Note Unable To Reach Patient Patient's name appears on the [employer] report for a PHQ-9 score of 14 and +9. Second attempt:SW called Patient to follow up and left a VM requesting a call back. MONIKA Dhillon [facility] 01-04-2025 Miscellaneous Notes Unable To Reach Patient Patient's name appears on the [employer] report for a PHQ-9 score of 14 and +9. Second attempt:SW called Patient to follow up and left a VM requesting a call back. MONIKA Dhillon documented in this encounter [facility] 01-03-2025 Telephone encounter Note Unable To Reach Patient Patient's name appears on the [employer] report for a PHQ-9 score of 14 and +9. SW called Patient to follow up and left a VM requesting a call back. [place] SEVERITY RATING SCALE Unable to reach Patient to assess. MONIKA Dhillon [facility] 01-03-2025 Miscellaneous Notes Unable To Reach Patient Patient's name appears on the [employer] report for a PHQ-9 score of 14 and +9. SW called Patient to follow up and left a VM requesting a call back. [place] SUICIDE SEVERITY RATING SCALE Unable to reach Patient to assess. MONIKA Dhillon documented in this encounter [facility] 01-02-2025 Telephone encounter Note Transitional Care Management (TCM) [facility] Provider Action / FYI: N/a SUMMARY: Outreach type: INITIAL OUTREACH Discharge Network Status: In-Network Discharge Source of Patient: [facility] TCM Discharge Report Patient discharged from [facility] on 12/21/2024. Admitted for Lactic acidosis. Contact made with patient: No, for Follow-up - end outreach and close encounter. Polly Blanton January 02, 2025 2:24 PM [facility] 01-02-2025 Miscellaneous Notes [facility] Provider Action / FYI: N/a SUMMARY: Outreach type: INITIAL OUTREACH Discharge Network Status: In-Network Discharge Source of Patient: [facility] TCM Discharge Report Patient discharged from [facility] on 12/21/2024. Admitted for Lactic acidosis. Contact made with patient: No, for Follow-up - end outreach and close encounter. Polly Blanton January 02, 2025 2:24 PM documented in this encounter [facility] 01-02-2025 Telephone encounter Note Study Title: [...] Jigna Montalvo January 02, 2025 11:04 AM [facility] 01-02-2025 Miscellaneous Notes Study Title: IRB: [...] 2025 11:04 AM documented in this encounter [facility] 01-01-2025 Telephone encounter Note [facility] Provider Action / FYI: na SUMMARY: Outreach type: INITIAL OUTREACH Discharge Network Status: In-Network Discharge Source of Patient: [facility] TCM Discharge Report Patient discharged from [facility] on 12.21.24. Admitted for Lactic acidosis. . Contact made with patient: No - 2nd unsuccessful attempt - end outreach and close encounter. Sean De La Fuente January 01, 2025 10:37 AM [facility] 01-01-2025 Miscellaneous Notes [facility] Provider Action / FYI: na SUMMARY: Outreach type: INITIAL OUTREACH Discharge Network Status: In-Network Discharge Source of Patient: [facility] Discharge Report Patient discharged from [facility] on 12.21.24. Admitted for Lactic acidosis. . Contact made with patient: No - 2nd unsuccessful attempt - end outreach and close encounter. Sean De La Fuente January 01, 2025 10:37 AM documented in this encounter [facility] 12-31-2024 History of Present illness Narrative [...] a 39 year old single female from [place], [place] ([address], supportive father) with a history of bipolar disorder, severe panic attacks, polysubstance abuse (EtOH, marijuana - sober since at least Apr 2024), violent behavior under influence of EtOH (September 2021), smoking (quit Jul 2024), (2012), preDM, and lap maryellen (2018). She was transferred to [facility] 08/20/24 with a mural thrombus in the [...] vascular surgery (08/23/24). She was DC to [facility] 09/03/24 and referred to [facility] Medical and Surgical Teams for STEP + Gattex. 10/09/24 OSH Admission for accidental overdose of Methadone at SNF. 10/19/24 OSH Admission for high output stoma. Cdiff negative. Stool for GI panel in process. Remains off TPN. Electrolyte repletion underway. Initial JONATAN Cr >2 has resolved. High stoma output, but it is not measured at the snf. 11/18-11/05/24 OSH Admission for high output stoma [...] output stoma and dehydration Presented to the [facility] emergency room with concerns for dehydration [...] Partial Omentectom. She was transferred back to [facility]: on [employer], with NG tube, with pathak, on continued [...] and examined with Dr. Kirit Devine MD [facility] STAFF PHYSICIAN NOTE OF PERSONAL INVOLVEMENT IN [...] lagos components of the note. PHYSICAL EXAM: [facility] 08/29/2024 General appearance: well appearing, alert, in [...] She has been eating [employer] yesterday and [employer] sausage, egg and cheese for breakfast. She [...] PO TID x 7 days for ASA Flores Corrine CARBAJAL 12/26/2024 documented in this encounter [facility] 12-31-2024 Note [facility] 12-25-2024 Telephone encounter Note Study Title: [...] call. Discussed care recommendations: Next appointment scheduled: [facility] 12-25-2024 Miscellaneous Notes Study Title: Caring [...] Next appointment scheduled: documented in this encounter [facility] 12-25-2024 Telephone encounter Note Transitional Care Management (TCM) [facility] Provider Action / FYI: N/A SUMMARY: Outreach type: INITIAL OUTREACH Discharge Network Status: In-Network Discharge Source of Patient: [facility] TCM Discharge Report Patient discharged from [facility] on 12/21/24. Admitted for Lactic acidosis. Contact made with patient: No - next outreach attempt will be on next . Suman Guevara RN December 25, 2024 2:27 PM [facility] 12-25-2024 Miscellaneous Notes Transitional Care Management (TCM) [facility] Provider Action / FYI: N/A SUMMARY: Outreach type: INITIAL OUTREACH Discharge Network Status: In-Network [facility] Patient discharged from [facility] on 12/21/24. Admitted for Lactic acidosis. Contact made with patient: No - next outreach attempt will be on next . Suman Guevara RN December 25, 2024 2:27 PM documented in this encounter [facility] 12-25-2024 Telephone encounter Note Pt was [...] on Sunday 12/31. Dr. Devine was updated. [facility] 12-25-2024 Miscellaneous Notes Pt was discharged [...] Devine was updated. documented in this encounter [facility] 12-25-2024 History of Present illness Narrative [...] PHARMACIST ASSESSMENT/CHECKLIST: -Discharge date: 12/21/24 -Date of [facility] assessment/communication: 12/25/24 -Disposition of the patient at time of assessment? Home -Review study front desk auxiliary (B-38) and nurse navigator (B-41) documentation if [...] When in the Hospital: Presented to the [facility] emergency room with concerns for dehydration [...] Partial Omentectom. She was transferred back to [facility]: on [employer], with NG tube, with pathak, on continued [...] dispense records with recent fill hx PER MARCELO carpio team not yet ready for therapeutic lovenox, ok to uptitrate to lovenox 60 mg every 12 hrs dc planned for today recommend dc on lovenox 60 mg every 12 hr and then when pt sees PCP on 12/31 could uptitrate to therapeutic lovenox 90 mg every 12 hrs and begin bridging to warfarin [facility] has coumadin clinic but only takes referral from [place] [facility] staff. escitalopram oxalate (LEXAPRO) 20 mg tablet [...] 2024 9:10 AM documented in this encounter [facility] 12-25-2024 Note [facility] 12-21-2024 Note [facility] 12-21-2024 Note [facility] 12-21-2024 Note [facility] 12-21-2024 History of Present illness Narrative [facility] Patient education Checklist. Patient Name: Daly Evans MR# [id number] Date: December 21, 2024 10:17 am Performance [...] included pt teaching back instructions taught. Todd Salomon, RN [facility] Nurse documented in this encounter [facility] 12-21-2024 Note [facility] 12-20-2024 Note [facility] 12-20-2024 Note [facility] 12-20-2024 Note [facility] 12-20-2024 History of Present illness Narrative Study Title: Caring for OutPatiEnts aftr Acute Kidney Injury (COPE-JONATAN) Trial IRB:[id number] PI: Dr. Byrd Date: 12/20/2024 Visit: Pre Hospital Discharge Has study front desk auxiliary completed their assessment/guidance for post management: Pending B-38 Nurse navigator reviewed the plan of management with the study front desk auxiliary to determine: *Follow-up with clinical front desk auxiliary: pending *Follow-up with PCP: Yes-scheduled *What are the targets for BP and volume (weight) management: -BP: 130/80 -Weight: Baseline -Specific management issues study front desk auxiliary is concerned about: Pending B-38 Informed the [...] on equipment: Yes Device serial number scale: [id number] Device serial number BP device: [id number] C-24 Labs Collected: blood: No urine: No Contact PCP: pending Next appointment scheduled: 2-3 day visit. Jigna Montalvo December 25, 2024 11:13 AM documented in this encounter [facility] 12-19-2024 Note [facility] 12-19-2024 Note [facility] 12-18-2024 Note [facility] 12-18-2024 Note [facility] 12-17-2024 Note [facility] 12-17-2024 Note [facility] 12-16-2024 Note [facility] 12-16-2024 Note [facility] 12-15-2024 Note [facility] 12-15-2024 Note [facility] 12-14-2024 Note [facility] 12-14-2024 Note [facility] 12-13-2024 Note [facility] 12-13-2024 Telephone encounter Note Message given to Sandra Castle PA-c, inpatient team. [facility] 12-13-2024 Miscellaneous Notes Message given to Sandra Castle PA-c, inpatient team. Ernst called concerning the status of the pt's surgery. Requesting a return call from the youth coordinator. Please call Ernst at [phone]. Twila Vargas documented in this encounter [facility] 12-13-2024 Telephone encounter Note Ernst called concerning the status of the pt's surgery. Requesting a return call from the youth coordinator. Please call Ernst at [phone]. Twila Vargas [facility] 12-13-2024 Note [facility] 12-12-2024 Note [facility] 12-12-2024 Note [facility] 12-12-2024 Note [facility] 12-12-2024 Note [facility] 12-11-2024 Note [facility] 12-10-2024 Note [facility] 12-09-2024 Note [facility] 12-09-2024 Note [facility] 12-08-2024 Note [facility] 12-07-2024 Note [facility] 12-07-2024 Note [facility] 12-07-2024 Note [facility] 12-06-2024 Note [facility] 12-06-2024 Note [facility] 12-05-2024 Note [facility] 11-28-2024 Telephone encounter Note I called [...] to the ED as we discussed yesterday. [facility] 11-28-2024 Miscellaneous Notes I called Ernst [...] requesting that Libia calls him back at [phone]. Ernst says that Daly is in the emergency room because she is having issues with her ostomy bag. Ernst says that Daly is sweating, dizzy, and in pain. documented in this encounter [facility] 11-28-2024 Telephone encounter Note Ernst (father) called in requesting that Libia calls him back at [phone]. Ernst says that Daly is in the emergency room because she is having issues with her ostomy bag. Ernst says that Daly is sweating, dizzy, and in pain. [facility] Work Phone: 11-27-2024 Telephone encounter Note I returned Daly's call. She was hospitalized again a few days ago. She was given IVF and electrolytes, and then discharged. She has had multiple local hospital admissions for dehydration, high stoma output, and electrolyte imbalance. She has not yet been evaluated by our team, and has decided to come to [facility] ED tomorrow for evaluation and possible admission to the medicine service for stabilization. I told her that I will inform Dr. Devine. I did reach out to Dr. Devine and shared the above. [facility] 11-27-2024 Miscellaneous Notes I returned Daly's call. She was hospitalized again a few days ago. She was given IVF and electrolytes, and then discharged. She has had multiple local hospital admissions for dehydration, high stoma output, and electrolyte imbalance. She has not yet been evaluated by our team, and has decided to come to [facility] ED tomorrow for evaluation and possible admission to the medicine service for stabilization. I told her that I will inform Dr. Devine. I did reach out to Dr. Devine and shared the above. The patient requests a call from Libia.. Gretchen Navarrete documented in this encounter [facility] 11-27-2024 Telephone encounter Note The patient requests a call from Libia.. Gretchen Navarrete [facility] 11-23-2024 Note [facility] 11-16-2024 Note [facility] 11-14-2024 Note [facility] 11-12-2024 Telephone encounter Note I called patient and left a voicemail for her and her father and explained that she should come to the [facility] ED if she is having N, V, high output, or dehydration so that we can evaluate her here and determine what is needed for optimization for surgery. I also explained that the physicians and the hospital she is evaluated at can request transfer to [facility]. [facility] 11-12-2024 Miscellaneous Notes I called patient and left a voicemail for her and her father and explained that she should come to the [facility] ED if she is having N, V, [...] back to reschedule documented in this encounter [facility] 11-12-2024 Telephone encounter Note Patient called in to cancel today's appointment because she going to the Emergency room now and she will call back to reschedule [facility] 11-06-2024 Telephone encounter Note Transitional Care Management (TCM) [facility] Provider Action / FYI: na SUMMARY: Outreach type: INITIAL OUTREACH Discharge Network Status: In-Network Discharge Source of Patient: [facility] TCM Discharge Report Patient discharged from [facility] on 10.26.24. Admitted for Intractable diarrhea . Contact made with patient: No - next outreach attempt will be on next business day. Rico Minor November 06, 2024 4:23 PM [facility] 11-06-2024 Miscellaneous Notes Transitional Care Management (TCM) [facility] Provider Action / FYI: na SUMMARY: Outreach type: INITIAL OUTREACH Discharge Network Status: In-Network [facility] Patient discharged from [facility] on 10.26.24. Admitted for Intractable diarrhea . Contact made with patient: No - next outreach attempt will be on next business day. Rico Minor November 06, 2024 4:23 PM documented in this encounter [facility] 11-05-2024 Telephone encounter Note I called Daly and she was disharged from [facility] last week 10/30 to 11/05/24 for dehydration. [...] TPN management CT chest w IV con [facility] 11-05-2024 Miscellaneous Notes I called Daly and she was disharged from [facility] last week 10/30 to 11/05/24 for dehydration. [...] for this request documented in this encounter [facility] 11-05-2024 Telephone encounter Note Patient called in requesting an appointment with Dr. Nilson العراقي an order be put in for this request [facility] 11-05-2024 Note [facility] 10-30-2024 Telephone encounter Note Record ID: [id number] Patient name: Daly Evans Date: October 30, [...] the button with your last name. -> Lovedave Got it, thank you. Please enter your [...] since you first noticed them? -> Same [facility] 10-30-2024 Miscellaneous Notes Record ID: [id number] Patient name: Daly Evans Date: October 30, [...] the button with your last name. -> Lovedave Got it, thank you. Please enter your [...] them? -> Same documented in this encounter [facility] 10-26-2024 History of Present illness Narrative Daly Estrella Lover is a 39 year old female with history of prediabetes, iron deficiency anemia, vitamin D deficiency, bipolar disorder and substance use disorder. 2 she developed an acute SMA occlusion with [...] attend because she is currently admitted to [facility] for diarrhea exacerbation associated with JONATAN, hyponatremia, and hypokalemia. She will be rescheduled. Daly Joaquinr 10/26/2024 documented in this encounter [facility] 10-26-2024 Note HNO ID: [id number] Author: MORENA PALACIOS LSW Service: Care Management Author Type: Lan Manager Type: Care Mgt Progress Note Filed: 10/26/2024 12:47 Note Text: CARE MANAGEMENT PROGRESS NOTE SERVICE DATE: 10/26/2024 SERVICE TIME: 12:41 PM LOS: 7 days Chart reviewed. Pt admitted from [facility] for intractable diarrhea. She has an ostomy. Pt is ready for dc today. Insurance states that pt doesn't have a skilled need to return to SNF; she was at SNF and she had IV abx and TPN (now off of both of those). CHRISTY met with pt at bedside and explained [...] will discharge to her parents home at: [address], [place]. CHRISTY let Cornelius know this. SIGNATURE: CHANELL Stewart PATIENT NAME: Daly Evans DATE: October 26, 2024 TIME: 12:41 PM [facility] 10-25-2024 Note HNO ID: [id number] Author: WILLIS EMMANUEL DO Service: Hospital Medicine [...] resection with ostomy Patient sent to an [facility] ED due to high output ostomy She had evidence of renal failure as well as multiple electrolyte abnormalities (see below) Gastroenterology is following C. diff negative Stool PCR negative Continue scheduled Imodium 4 mg TID Acute kidney injury Creatinine 2.8 in [facility] ED Likely secondary to GI losses Creatinine now normalized Hyponatremia Sodium 130 in [facility] ED Likely secondary to GI losses Sodium now 135 today Hypokalemia Potassium 3.3 in [facility] ED Likely secondary to GI losses Still 3.4 today Will again supplement Left foot discoloration, ?gangrene Left toes are black, per patient this began while she was at [facility] Chart review indicates she had bilateral lower extremity tibial thromboemboli and underwent thromboembolectomy of the anterior tibial, posterior tibial, and peroneal arteries Podiatry following X-rays obtained on 10/23 showed no evidence of osteomyelitis I spoke with Dr. Garcia yesterday, he has no immediate plans for surgical intervention (more content not included)... [facility] 10-24-2024 Note HNO ID: [id number] Author: WILLIS EMMANUEL DO Service: Hospital Medicine [...] resection with ostomy Patient sent to an [facility] ED due to high output ostomy She had evidence of renal failure as well as multiple electrolyte abnormalities (see below) Gastroenterology is following C. diff negative Stool PCR negative Continue scheduled Imodium 4 mg TID Acute kidney injury Creatinine 2.8 in [facility] ED Likely secondary to GI losses Creatinine now normalized Hyponatremia Sodium 130 in [facility] ED Likely secondary to GI losses Sodium now 133 today Hypokalemia Potassium 3.3 in [facility] ED Likely secondary to GI losses Still 3.4 today Will again supplement Left foot discoloration, ?gangrene Left toes are black, per patient this began while she was at [facility] Chart review indicates she had bilateral lower extremity tibial thromboemboli and underwent thromboembolectomy of the anterior tibial, posterior tibial, and peroneal arteries Podiatry following X-rays obtained yesterday showed no evidence of osteomyelitis I spoke with Dr. Garcia today, he has no immediate (more content not included)... [facility] 10-24-2024 Note HNO ID: [id number] Author: MORENA PALACIOS LSW Service: Care Management Author Type: Lan Manager Type: Care Mgt Progress Note Filed: 10/24/2024 12:21 Note Text: CARE MANAGEMENT PROGRESS NOTE SERVICE DATE: 10/24/2024 SERVICE TIME: 9:36 AM LOS: 5 days Chart reviewed. Pt admitted from [facility] for intractable diarrhea; she has an ostomy. GI consulted for high ostomy output, they signed off yesterday 10/23. Podiatry consulted for left foot discoloration/gangrene. DC plan is to return to [facility] for wound care; precert started today. Post acute checklist on chart, will need wheelchair transport. SIGNATURE: CHANELL Stewart PATIENT NAME: Daly Evans DATE: October 24, 2024 TIME: 9:36 AM [facility] 10-23-2024 Note HNO ID: [id number] Author: WILLIS EMMANUEL DO Service: Hospital Medicine [...] resection with ostomy Patient sent to an [facility] ED due to high output ostomy She had evidence of renal failure as well as multiple electrolyte abnormalities (see below) Gastroenterology is following C. diff negative Stool PCR negative Continue scheduled Imodium, increase today to 4 mg TID Acute kidney injury Creatinine 2.8 in [facility] ED Likely secondary to GI losses Creatinine now normalized Hyponatremia Sodium 130 in [facility] ED Likely secondary to GI losses Sodium now 133 today Hypokalemia Potassium 3.3 in [facility] ED Likely secondary to GI losses Still 3.4 today Will again supplement Left foot discoloration, ?gangrene Left toes are black, per patient this began while she was at [facility] Chart review indicates she had bilateral lower extremity tibial thromboemboli and underwent thromboembolectomy of the anterior tibial, posterior tibial, and peroneal arteries Continue therapeutic Lovenox Podiatry now following X-rays obtained today showed no evidence of osteomyelitis Continue local wound care Chronic comorbidities Bipolar disorder Anxiety Hx of substance abuse SIGNATURE: Willis Emmanuel, (more content not included)... [facility] 10-23-2024 Note HNO ID: [id number] Author: YOHANA GARCIA III, DPM Service: Podiatry Author Type: Physician Type: Progress Notes Filed: 10/23/2024 17:49 Note Text: Podiatry Progress Note: X-rays reviewed. No signs of fracture or osteomyelitis or soft tissue gas. Gangrene is dry and stable. Continue wound care. Will follow as outpatient. Yohana Garcia III, DPM FACFAS 5:48 PM [facility] 10-22-2024 Note HNO ID: [id number] Author: WILLIS EMMANUEL DO Service: Hospital Medicine [...] resection with ostomy Patient sent to an [facility] ED due to high output ostomy She had evidence of renal failure as well as multiple electrolyte abnormalities (see below) Gastroenterology is following C. diff negative Stool PCR negative Scheduled Imodium started today (2 mg QID) Acute kidney injury Creatinine 2.8 in [facility] ED Likely secondary to GI losses Creatinine now normalized Will stop IV fluids Hyponatremia Sodium 130 in [facility] ED Likely secondary to GI losses Sodium now 136 today Stopping IV fluids Hypokalemia Potassium 3.3 in [facility] ED Likely secondary to GI losses Still 3.2 today Will again supplement Left foot discoloration, ?gangrene Left toes are black, per patient this began while she was at [facility] Chart review indicates she had bilateral lower extremity tibial thromboemboli and underwent thromboembolectomy of the anterior tibial, posterior tibial, and peroneal arteries Continue ther (more content not included)... [facility] 10-22-2024 Note HNO ID: [id number] Author: WILLIS EMMANUEL DO Service: Hospital Medicine Author Type: Physician Type: Progress Notes Filed: 10/22/2024 15:27 Note Text: Documentation Query Please clarify the diagnosis associated with the clinical indicators for this patient Provider Response: Hypokalemia supported by: Oral Supplement of Potassium chloride and IV Infusion of Potassium chloride This document will become part of the patient's medical record. [facility] 10-22-2024 Note HNO ID: [id number] Author: MORENA PALACIOS LSW Service: Care Management Author Type: Lan Manager Type: Care Mgt Initial Assessment Filed: 10/22/2024 12:51 Note Text: CARE MANAGEMENT: ASSESSMENT AND DISCHARGE PLAN SERVICE DATE: October 22, 2024 SERVICE TIME: 12:43 PM PCP: Fredrick Boland DO Primary Contact: Extended Emergency Contact Information Primary Emergency Contact: Ernst Evans Mobile Relation: Father Secondary Emergency Contact: Mary Evans [facility] Relation: Mother Admission Status: Inpatient Insurance Provider: [employer] MEDICAID Discharge Planning requested by: Potential Transition Plans Advance Directives Current Living Arrangements and Support Lives with: Type of Residence: Support: Current Services/Equipment Discharge Planning Patient Goal(s): [place] of Choice Explained: Are you interested in [...] In the past 12 months has the Left of the [employer], oil, or water Played threatened to shut off services in your home?: No Post-Acute Discharge Plan: Chart reviewed. Pt admitted from [facility] for intractable diarrhea. She has an extensive medical history: Main [place]: 08/20/2024: Small bowel resection, Ileocecectomy with general surgery. 08/20/24: Bilateral below-knee popliteal cutdown, Thromboembolectomy of AT, PT and peroneal arteries. Primary repair of tibial arteriotomies. Bilateral lower extremity 4 compartment fasciotomies with vascular surgery. 08/22/2024: Second look laparotomy, loop-end jejunosotomy. 08/23/2024: BLE fasciotomy closure. She is currently having high ostomy output. GI consulted. Pt will return to [facility] at discharge. Will need auth to return; she was skilled for wound care. Will need transportation. SIGNATURE: CHANELL Stewart PATIENT NAME: Daly Evans DATE: October 22, 2024 TIME: 12:43 PM [facility] 10-21-2024 Note HNO ID: [id number] Author: WILLIS EMMANUEL DO Service: Hospital Medicine [...] resection with ostomy Patient sent to an [facility] ED due to high output ostomy She had evidence of renal failure as well as multiple electrolyte abnormalities (see below) Gastroenterology is following C. diff negative Stool PCR collected, results pending Antimotility agent being deferred for now until infectious etiology is ruled out Acute kidney injury Creatinine 2.8 in [facility] ED Likely secondary to GI losses Continue IV fluids via lactated Ringer's at 150 cc/hour Creatinine now normalized Hyponatremia Sodium 130 in [facility] ED Likely secondary to GI losses Continue IV fluids as outlined above Sodium now 135 today Hypokalemia Potassium 3.3 in [facility] ED Likely secondary to GI losses Still 2.8 today Will supplement Chronic comorbidities Hx of DVT Bipolar disorder Anxiety Hx of substance abuse SIGNATURE: Willis Emmanuel DO PATIENT NAME: Daly Evans DATE: October 21, 2024 TIME: 11:49 PM [facility] 10-21-2024 Note HNO ID: [id number] Author: TUNG JENNINGS MD Service: Gastroenterology Author [...] October 21, 2024 TIME: 12:09 PM PAGER: [facility] 10-20-2024 Note HNO ID: [id number] Author: WILLIS EMMANUEL DO Service: Hospital Medicine [...] resection with ostomy Patient sent to an [facility] ED due to high output ostomy She had evidence of renal failure as well as multiple electrolyte abnormalities (see below) Gastroenterology is following Stool PCR ordered Antimotility agent being deferred for now until infectious etiology is ruled out Acute kidney injury Creatinine 2.8 in [facility] ED Likely secondary to GI losses Continue IV fluids via lactated Ringer's at 150 cc/hour Hyponatremia Sodium 130 in [facility] ED Likely secondary to GI losses Continue IV fluids as outlined above Hypokalemia Potassium 3.3 in [facility] ED Likely secondary to GI losses Will supplement Chronic comorbidities Hx of DVT Bipolar disorder Anxiety Hx of substance abuse SIGNATURE: Willis Emmanuel DO PATIENT NAME: Daly Evans DATE: October 20, 2024 TIME: 4:15 PM [facility] 10-12-2024 Note HNO ID: [id number] Author: JAKE MORALES RN Service: Care Management Author Type: Registered Nurse Type: Care Mgt Progress Note Filed: 10/12/2024 12:02 Note Text: CARE MANAGEMENT DISCHARGE NOTE SERVICE DATE: October 12, 2024 SERVICE TIME: 11:57 AM Admission Date: 10/09/2024 LOS: 0 days Discharge Arrangement Pt to discharge to [facility] this date at 1200, father to transport pt. Services Arranged [facility]. Provider Name: Dr. Fredrick Boland Caregiver Assessment SNF staff. Transportation Arrangements This RN cancelled transportation setup as pt's father can now transport pt. Handoff Communication: Summary of care sent to PCP and GI. Additional Information: Pt to discharge to [facility] this date at 1200, father to transport pt. No precert or HENS form needed. Discharge packet completed and on chart. Shanta HUFFMAN called report and placed AVS in discharge packet. This RN sent updates via [employer]. Pt, attending, RN, sterile proc tech, and Niki from SNF notified of and agreeable to discharge plan. LOC SNF. Case closed. Discharge Information Row Name Admission (Current) from 10/09/2024 in MR 10M MED/SURG [facility] Facility Agency [facility] -- Phone# -- SIGNATURE: Jake Morales RN PATIENT NAME: Daly Evans DATE: October 12, 2024 TIME: 11:57 AM [facility] 10-12-2024 Note HNO ID: [id number] Author: SHANTA MIMS RN Service: Nursing Author Type: Registered Nurse Type: Nursing Progress Note Filed: 10/12/2024 10:30 Note Text: Report called to Raisa at [facility]. [facility] 10-11-2024 Note HNO ID: [id number] Author: JAKE MORALES RN Service: Care Management [...] PICC placed for IV access. 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 Pt stated that discharge plan is to return to SNF, SNF can accept pt back without precert. Pt denies use of DME. Pt + for PCP, Rx, and insurance. Pt needs transportation on discharge, pt aware of possible OOP costs and agreeable. Pt denies using DME. Per attending, pt will not discharge today due to restarting Lovenox and monitoring for any further episodes of hematemesis before discharging. Current discharge plan [facility]. CM will follow for and assist with transitional discharge needs. Discharge packet on chart. PACF and transportation form completed. Pt will need transportation setup for discharge. Of note, pt admitted at [facility] main 08/20/24 until 09/03/24 for the followin08/20/2024: [...] DATE: October 11, 2024 TIME: 2:19 PM [facility] 10-11-2024 Note HNO ID: [id number] Author: DIANDRA MARTINEZ MD Service: General Internal [...] TESTS: CBC: Recent Labs 10/11/24 0629 10/10/24 0527 WBC 5.84 7.09 HB 9.2* 10.4* PLT [...] Component Value Units Date/Time BACTERIAL CULTURE, URINE [[id number]] (Abnormal) Collected: 09/21/24914 Order Status: Completed Specimen: [...] Component Value Units Date/Time BACTERIAL CULTURE, URINE [[id number]] (Abnormal) Collected: 09/21/24914 Order Status: Completed Specimen: [...] Lovenox Hx acute (more content not included)... [facility] 10-10-2024 Note HNO ID: [id number] Author: DIANDRA MARTINEZ MD Service: General Internal [...] Component Value Units Date/Time BACTERIAL CULTURE, URINE [[id number]] (Abnormal) Collected: 09/21/24914 Order Status: Completed Specimen: [...] Component Value Units Date/Time BACTERIAL CULTURE, URINE [[id number]] (Abnormal) Collected: 09/21/24914 Order Status: Completed Specimen: [...] ordered Hypoglycemia protocol (more content not included)... [facility] 10-10-2024 Note HNO ID: [id number] Author: JAKE MORALES RN Service: Care Management Author Type: Registered Nurse Type: Care Mgt Initial Assessment Filed: 10/10/2024 14:33 Note Text: CARE MANAGEMENT: ASSESSMENT AND DISCHARGE PLAN SERVICE DATE: October 10, 2024 SERVICE TIME: 2:17 PM PCP: Fredrick Boland DO Primary Contact: Extended Emergency Contact Information Primary Emergency Contact: Ernst Evans Mobile Relation: Father Secondary Emergency Contact: Mary Evans [facility] Relation: Mother Admission Status: Observation Insurance Provider: CARLA MUÑOZ MEDICAID Discharge Planning requested by: Per Department Practice Potential Transition Plans To Be Determined Advance Directives Current Advance Directive: None Current Living Arrangements and Support Lives with: (At [facility].) Type of Residence: [facility] Facility Does the patient have to climb stairs at home?: No Care Facility Name: [facility]. Support: Parent, Family members How do you manage to accomplish the following: Independent: Ambulation, Bathe/Shower, Dress, Going to the bathroom Dependent: Meals/Meal Prep, Medication Management, Transportation to appointments/community Current Services/Equipment Current Post-Acute Service(s): None Discharge Planning Patient Goal(s): General wellness [place] Explained: Are you interested in bedside delivery of your medications? 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 Pt stated that discharge plan is to return to SNF, this RN requested that [facility] send return referral. Pt denies use of [...] transportation setup. Of note, pt admitted at [facility] main 08/20/24 until 09/03/24 for the followin08/20/2024: [...] In the past 12 months has the electric, gas, oil, or water Played threatened to shut off services in your home?: No Social Information Financial Resources: Unemployed SIGNATURE: Jake Morales RN PATIENT NAME: Daly Evans DATE: October 10, 2024 TIME: 2:17 PM [facility] 10-10-2024 Note HNO ID: [id number] Author: CHARLEE ROGERS RN Service: PICC Team Author Type: Registered Nurse Type: Procedures Filed: 10/10/2024 08:37 Note Text: MIDLINE INSERTION PROCEDURE NOTE - PICC TEAM NURSES DATE OF PROCEDURE: 10/10/2024 TIME OF PROCEDURE: 0800 ORDERING PHYSICIAN: Alycia Rawls CNP Indications for line placement: Intravenous access Condition of line placement: Sterile Primary Proceduralist: Shawn Vasquez RN Tosser: Charlee Rogers RN Pre-procedure Review: ALLERGIES Allergen [...] with the procedure. Special equipment utilized Site [facility]. Patient/Surrogate Stated/Verified: Patient name, Date of , [...] for hospitalized patients). Midline Catheter Placement: Brand: BARD Lot: [id number] Number of lumens: 1 Type of Midline: Power Injectable Midline Lumen size: 3 Swiss Placement Technique: Lidocaine: Yes, Lidocaine 1% Volume [...] or problems: Call Vascular Access Nurse on [facility] SIGNATURE: Charlee Rogers RN PATIENT NAME: Daly Evans DATE: October 10, 2024 TIME: 8:34 AM PAGER: Call [facility] 10-10-2024 Telephone encounter Note Scheduled. Message left for patient to confirm. Hospital will print at discharge. [facility] Work Phone: 10-10-2024 Miscellaneous Notes Scheduled. Message left for patient to confirm. Hospital will print at discharge. I see she is currently admitted to the hospital for accidental overdose. Please schedule her for follow-up with me after discharge to discuss recent lab work she had done at her initial consultation here. Martín Ballesteros DO documented in this encounter [facility] 10-09-2024 Note HNO ID: [id number] Author: LETTY ARAUZ RDMS Service: Radiology Author [...] PATIENT PRESENTS WITH AN IMPLANTABLE OR ATTACHED MANAGER ACUTE: No RADIOLOGY DEPARTMENT: Ultrasound PERIPHERAL IV DATA: Not applicable SIGNED BY: Letty Arauz RDMS October 09, 2024 7:05 PM [facility] 10-09-2024 Telephone encounter Note I see she is currently admitted to the hospital for accidental overdose. Please schedule her for follow-up with me after discharge to discuss recent lab work she had done at her initial consultation here. Martín Ballesteros DO [facility] Work Phone: 10-08-2024 Telephone encounter Note We were able to complete the virtual education visit as scheduled. [facility] 10-08-2024 Miscellaneous Notes We were able [...] this morning his call back number is [phone] documented in this encounter [facility] 10-08-2024 Telephone encounter Note I returned her father's call and got voicemail at the number he asked me to call and left a message. I then tried to call his cell and got voicemail as well and left another message. [facility] 10-08-2024 Telephone encounter Note Patient father called in stated he would like a call back this morning concerning the phone visit scheduled at 10am this morning his call back number is [phone] [facility] 10-08-2024 Telephone encounter Note Images from the original note were not included. [facility] VIRTUAL EDUCATION VISIT REFERRAL: Referring Physician: Dr. Peter Smith ([facility]) Reason for Referral: Surgical rehabilitation Referring Diagnosis: SMA occlusion, disconnected SBS, on TPN HISTORY: Daly Estrella Lover is a 39 year old single female from [place], [place] ([address], supportive father) with a history of bipolar disorder, severe panic attacks, polysubstance abuse (EtOH, marijuana - sober since at least Apr 2024), violent behavior under influence of EtOH (September 2021), smoking (quit Jul 2024), (2012), preDM, and lap maryellen (2018). She was transferred to [facility] 08/20/24 with a mural thrombus in the [...] DC to SNF 09/03/24 and referred to [facility] Medical and Surgical Teams for STEP + [...] since 08/22/24 stopped approx 10/01/24 at the snf. Tube Feeds: no Height: 172 cm (5' 7.72) Weight: 91.5 kg (201 lb 11.5 oz) on 09/03/24 - BMI 30.9 [facility] Facility Attending Physician manages her TPN. Dr. [...] Tuesday10/22/24, with labs in A30 at noon. [facility] 10-08-2024 Miscellaneous Notes Images from the original note were not included. [facility]ANS[facility] VIRTUAL EDUCATION VISIT REFERRAL: Referring Physician: Dr. Peter Smith ([facility]) Reason for Referral: Surgical rehabilitation Referring Diagnosis: SMA occlusion, disconnected SBS, on TPN HISTORY: Daly Estrella Lover is a 39 year old single female from [place], [place] ([address], supportive father) with a history of bipolar disorder, severe panic attacks, polysubstance abuse (EtOH, marijuana - sober since at least Apr 2024), violent behavior under influence of EtOH (September 2021), smoking (quit Jul 2024), (2012), preDM, and lap maryellen (2018). She was transferred to [facility] 08/20/24 with a mural thrombus in the [...] DC to SNF 09/03/24 and referred to [facility] Medical and Surgical Teams for STEP + [...] since 08/22/24 stopped approx 10/01/24 at the snf. Tube Feeds: no Height: 172 cm (5' 7.72) Weight: 91.5 kg (201 lb 11.5 oz) on 09/03/24 - BMI 30.9 [facility] Facility Attending Physician manages her TPN. Dr. [...] A30 at noon. documented in this encounter [facility] 10-03-2024 Telephone encounter Note Faxed. Irma Avila RN [facility] 10-03-2024 Miscellaneous Notes Faxed. Irma Avila RN [facility] called requesting office visit notes from yesterday be faxed to them at [phone] documented in this encounter [facility] 10-03-2024 Telephone encounter Note Quinton Alarcon called requesting office visit notes from yesterday be faxed to them at [phone] [facility] Work Phone: 10-02-2024 History of Present illness Narrative Patient referred by Dr. 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 HPI: The patient is a 39-year-old female with past medical history as outlined below. Presented to the ED at [facility]. 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 Sent to [facility]. Surgical notes reviewed. Heterozygous factor V Leiden. Positive for lupus anticoagulant. JAK2 mutation negative PNH negative. Protein electrophoresis revealed a monoclonal spike quantitated at 0.21 g/dL. No monoclonal protein identified by immunofixation. Both kappa and lambda light chains elevated with an increased ratio of kappa to lambda. Immunoglobulins normal. Beta-2 microglobulin 3.0. Feeling better. At snf. On TPN 12 hours via left arm PICC. Has somewhat of an appetite. Has been eating small amounts. Walking. Still has gilberto in abdominal incision. Tolerating Lovenox injections well. No unusual bleeding or unexplained bruising. PAST MEDICAL HISTORY Diagnosis Date Attempted suicide ([facility]) polysubstance Bipolar depression ([facility]) [facility] Gestational diabetes mellitus in ([facility]) Impaired fasting blood sugar 06/2015 a1c 5.7% at diagnosis Iron deficiency anemia Vitamin D deficiency PAST SURGICAL HISTORY Procedure Laterality Date CARPAL TUNNEL bilateral DELIVERY ONLY 08/05/12 LAPAROSCOPY SURG CHOLECYSTECTOMY 07/01/2018 Cholecystectomy, lap acetaminophen [...] has follow-up scheduled with vascular medicine at [facility]. - Recheck protein C&S today. - Her weight is 90 kg. Check low molecular weight heparin assay. - Check anticardiolipin and antibeta 2 glycoprotein antibodies today. -Plan on rotating to Coumadin once more stable as outlined above. I spent a total of 60 minutes on the date of the service which included preparing to see the patient, [id number] patient care, completing clinical documentation, obtaining and/or reviewing separately obtained history, performing a medically appropriate examination, counseling and educating the patient/family/caregiver, ordering medications, tests, or procedures, communicating with other HCPs (not separately reported), and communicating results to the patient/family/caregiver. Martín Ballesteros DO documented in this encounter [facility] 09-27-2024 Note . MICRO - Microbiology [...] Locations *1: This test was performed at: [address], [facility]- , [facility] 09-27-2024 Note . MICRO - Microbiology [...] Locations *1: This test was performed at: [address], [facility]- , [facility] 09-27-2024 Note . MICRO - Microbiology [...] Locations *1: This test was performed at: [facility], [address] [place] [address], [facility] , [facility] 09-22-2024 Note . MICRO - Microbiology [...] Locations *1: This test was performed at: [facility], [address] [place] [address], [id number]- , [facility] 09-20-2024 Note . MICRO - Microbiology PROCEDURE: [...] Locations *1: This test was performed at: [facility], [address] [place] [address], [id number]- , [facility] 09-19-2024 History of Present illness Narrative Images from the original note were not included. Heart , Vascular and Thoracic [place] DEPARTMENT OF VASCULAR SURGERY OUTPATIENT VISIT DATE [...] fasciotomy sites healed. No s/s of infection. Gilberto removed and pt tolerated. Imaging today shows [...] 2024 TIME: 1434 documented in this encounter [facility] 09-17-2024 Note Discharge Instructio ns Discharge Summary [address] [address] [id number] 09/17/2024 Patient: DALY EVANS Sex: Female : 1985 Age: 39y Thank you for visiting [facility]. You have been evaluated today by Donte [...] by patient. Follow-up with: Maggie Putnam MD, [facility], Internal Medicine, Phone: [phone], [address] [facility] [address] [place] [address]. Follow up in two days. Reason for referral: evaluation and treatment. Summary of care provided to follow-up provider and patient. Patient Signature 1 of 2 Discharge Instructions Facility Brain Surgeon Date/Time General Instructions with ExitWriter [address] [address] [id number] 09/17/2024 Patient: DALY EVANS Sex: Female : 1985 Age: 39y Thank you for visiting [facility]. You have been evaluated today by Donte [...] by patient. Follow-up with: Maggie Putnam MD, [facility], Internal Medicine, Phone: [phone], [address] [place] [address]. Follow up in two days. Reason for referral: evaluation and treatment. Summary of care provided to follow-up provider and patient. 2 of 2 [facility] 09-12-2024 Telephone encounter Note Called placed to Stefany at the pt's [facility] facility. Spoke to Stefany and she gave me the patient's room phone number. Tried calling the [phone] (pt's room phone number) but the pt did not answer and I was unable to leave a message. Will try again tomorrow. [facility] 09-12-2024 Miscellaneous Notes Called placed to Stefany at the pt's [facility] facility. Spoke to Stefany and she gave me the patient's room phone number. Tried calling the [phone] (pt's room phone number) but the pt did not answer and I was unable to leave a message. Will try again tomorrow. documented in this encounter [facility] 09-12-2024 Telephone encounter Note Scheduled with Stefany. [facility] Work Phone: 09-12-2024 Miscellaneous Notes Scheduled with Stefany. 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 Okay to schedule with either physician. Donna Hill LPN Received call from Stefany [facility] stating Dr. Putnam would like patient to be seen by hematology, discharge papers showing blood clots. Patient had been seen at [facility] in [facility]. Please advise Stefany at [phone] documented in this encounter [facility] 09-12-2024 Telephone encounter Note DX: Acute phase response (low PC/PS/ATIII, elevated Factor VII, CRP); looks like lupus anticoagulant will be positive (+mix, platelet neutralization, hex phase), aCL and B2GP abs normal PHN, ANDREW-2, UPEP normal SPEP with +M protein Had embolectomy in July. Okay to schedule with either physician. Donna Hill LPN [facility] 09-12-2024 Telephone encounter Note Received call from Stefany [facility] stating Dr. Putnam would like patient to be seen by hematology, discharge papers showing blood clots. Patient had been seen at [facility] in vascular. Please advise Stefany at [phone] [facility] 09-11-2024 Telephone encounter Note Jose Cutler, Looks like this patient was discharged to a facility. Maybe Stefany knows of a way to reach the patient directly? ThanksShi [facility] 09-11-2024 Miscellaneous Notes Jose Cutler, Looks like this patient was discharged to a facility. Maybe Stefany knows of a way to reach the patient directly? ThanksShi Stefany from the [facility] is calling in stating that the patients discharge instructions state to consult with the center for gut rehab regarding patients short bowel syndrome. Stefany is asking for a call back at [phone]. documented in this encounter [facility] 09-11-2024 Telephone encounter Note Stefany from the [facility] is calling in stating that the patients discharge instructions state to consult with the center for gut rehab regarding patients short bowel syndrome. Stefany is asking for a call back at [phone]. [facility] 09-10-2024 Telephone encounter Note 2nd call placed, left a vm. Letter sent as well. Will close referral on 09/17 if I do not hear back. [facility] 09-10-2024 Miscellaneous Notes 2nd call placed, left a vm. Letter sent as well. Will close referral on 09/17 if I do not hear back. documented in this encounter [facility] 09-06-2024 Telephone encounter Note Called pt but was unable to leave vm due to vm box full. Tried calling her father Ernst and left him a vm to give our office a call back to begin referral for short bowel. [facility] 09-06-2024 Miscellaneous Notes Called pt but was unable to leave vm due to vm box full. Tried calling her father Ernst and left him a vm to give our office a call back to begin referral for short bowel. documented in this encounter [facility] 09-05-2024 Telephone encounter Note Triage please? Stefany from [facility] facility called for appt for patient with Dr Goncalves.Patient had surgery with Dr Palomares in Jul 2024 please advise? Thanks, [facility] 09-05-2024 Miscellaneous Notes Triage please? Stefany from [facility] called for appt for patient with Dr Goncalves.Patient had surgery with Dr Palomares in Jul 2024 please advise? Thanks, Reason for call: Stefany would like to schedule an appointment with Dr Goncalves for f/up Home and cell number [phone] Diagnosis-f/up Kev Cedeno documented in this encounter [facility] 09-05-2024 Telephone encounter Note Reason for call: Stefany would like to schedule an appointment with Dr Goncalves for f/up Home and cell number [phone] Diagnosis-f/up Venkatesh judgeKev [facility] 09-03-2024 Telephone encounter Note Received referral from referral triage for short bowel. Will call the pt for intake once discharged. [facility] 09-03-2024 Miscellaneous Notes Received referral from referral triage for short bowel. Will call the pt for intake once discharged. documented in this encounter [facility] 08-29-2024 Telephone encounter Note Left multiple messages by phone sent my chart message. [facility] 08-29-2024 Telephone encounter Note ----- Message from Xochilt Gaston APRN.TOW MATE sent at 08/08/2024 4:07 PM EST ----- Routing information can be restored upon returning to the encounter [facility] 08-29-2024 Miscellaneous Notes Left multiple messages by phone sent my chart message. ----- Message from Xochilt Gaston APRN.TOW MATE sent at 08/08/2024 4:07 PM EST ----- Routing information can be restored upon returning to the encounter Line busy will need to try back. ----- Message from Xochilt Gaston APRN.JUANY sent at 08/08/2024 4:07 PM EST ----- Routing information can be restored upon returning to the encounter Called and left message on patients voicemail to return call to the office and ask to speak with a triage nurse. Lauren Hull MA ----- Message from Xochilt Gaston APRN.TOW MATE sent at 08/08/2024 4:07 PM EST ----- [...] diabetes range. No other concerns. Xochilt Gaston APRN.TOW MATE documented in this encounter [facility] 08-29-2024 Telephone encounter Note Line busy will need to try back. [facility] 08-29-2024 Telephone encounter Note ----- Message from Xochilt Gaston APRN.TOW MATE sent at 08/08/2024 4:07 PM EST ----- Routing information can be restored upon returning to the encounter [facility] 08-20-2024 History of Present illness Narrative Images from the original note were not included. Critical Care Transport Note Patient Name: Daly Evans Service Date: 08/20/24 Referring Physician: Jeannine Referring Facility: [facility] Accepting Physician: David Accepting Facility: [facility] SUBJECTIVE/CHIEF COMPLAINT: abdominal pain, nausea REASON FOR TRANSPORT: Specialized tertiary and quaternary care for the patient's acute cardiovascular condition not available at the referring facility. History of Present Illness: The following history is what was known to CCT team at time of given care and summarized through review of available medical records, patient/family interview and from referring physician and nursing report. Daly Evans is a 38 year old female with a past medical history significant for bipolar disorder, borderline personality disorder, anemia, smoking/vaping and vit D deficiency. She presented to [facility] early this AM for evaluation of acute [...] managing the patient requested transfer to the [facility] for tertiary and/or quaternary services unavailable at the referring facility. The physician managing the patient requested the [facility] Critical Care Transport Team transport and treat the patient for the purpose of tertiary care, evaluation, and management of her acute aortic mural thrombus with SMA occlusion condition(s). Air medical transport was requested to reduce the csa-nu-oseicqqp time, 19 minutes by air vs. approximately [...] Date Attempted suicide (HCC) polysubstance Bipolar depression ([facility]) [facility] Gestational diabetes mellitus in Impaired fasting blood [...] SaO2 >/= 93% - Expedite transport to [facility] for further workup and care The transport was completed without significant incident or change in the patient's status. The patient was transported to the the [facility] by Rotor (Helicopter) for tertiary and/or quaternary evaluation and management of her Emergent Surgical condition(s). Upon arrival to the receiving facility, a vufg-ht-pitz report was given to bedside nursing staff in J31-20 and bedside medical team . Patient care [...] pain and the Cardiovascular impairment, Respiratory impairment, LEAD SCIENTIST impairment, Shock, Cardiac Arrest, and Severe metabolic abnormality which the patient had and/or had a high probability of suddenly developing. SIGNATURE: Katelyn Villagran APRN.CNP Acute Care Nurse Practitioner [facility] Critical Care Transport Team documented in this encounter [facility] 08-20-2024 Procedure note Procedure(s): ARTERIAL LINE [...] APRN.CNP PATIENT NAME: Daly Evans DATE: 08/20/24 [facility] 08-20-2024 Procedure note Procedure(s): ARTERIAL LINE [...] Evans DATE: 08/20/24 documented in this encounter [facility] 08-16-2024 History of Present illness Narrative Chief Complaint Patient presents with: Acute Visit: Cough, chest congestion & discomfort x 1 week HPI Daly A Lover is a 38 year old female [...] PAST MEDICAL HISTORY Diagnosis Date Attempted suicide ([facility]) polysubstance Bipolar depression ([facility]) [facility] Gestational diabetes [...] murmur, gallop, or rubs. No ectopy. Psychiatric: formerly [facility], [facility] Health Maintenance List Depression Screening Never [...] Time: 3:37 PM documented in this encounter [facility] 08-10-2024 Telephone encounter Note Called and left message on patients voicemail to return call to the office and ask to speak with a FM triage nurse. Lauren Hull MA [facility] 08-08-2024 Telephone encounter Note ----- Message from Xochilt Gaston APRN.CNP sent at 08/08/2024 4:07 PM EST ----- Routing information can be restored upon returning to the encounter [facility] 08-08-2024 Telephone encounter Note Left message to return call Akiko Pettit MA [facility] 08-08-2024 Telephone encounter Note Please let [...] range. No other concerns. Xochilt Gaston APRN.CNP [facility] 08-07-2024 Telephone encounter Note Lexapro and Zyprexa prescription was sent to the patient's pharmacy. [facility] 08-07-2024 Miscellaneous Notes Lexapro and Zyprexa [...] medication management. Thanks! documented in this encounter [facility] 08-07-2024 Telephone encounter Note Appreciate the update. Glad her EKG was normal and she was able to come in to see you. Will send in her refills. [facility] 08-07-2024 Telephone encounter Note Jose Tipton, We did Daly's EKG today and it looks great, completely normal. She asked me to let you know because you needed it for medication management. Thanks! [facility] 08-07-2024 History of Present illness Narrative Chief Complaint Patient presents with: Yearly Exam: Was in ER 2/4 for dizziness, low potassium and anemia, needs [...] A1C - COMPREHENSIVE METABOLIC PANEL Xochilt Gaston APRN.JUANY documented in this encounter [facility] 05-20-2024 Instructions Clayton Angeles APRN.JUANY - 05/20/2024 9:38 PM EST TREATMENT PLAN: Discontinue Lamictal and Trazodone and patient stopped taking them due to reporting lack of efficacy. Complete monitoring lab work and EKG due to the risk of side effects due to termination clerk use of the combination of medication prescribed [...] --call the National Suicide Prevention Lifeline at 988 (971.518.2903) --text the Crisis Text Line (text HOME to 761332) --call 911 and let them know you are having a mental health crisis or go to your nearest Emergency Room for stabilization. --You can also call Mobile Crisis at [phone]. -- You may call the department appointment line at [phone] to schedule your appointment. -- Please call my nurse at [phone] or send me a message in [employer] with any questions or concerns between appointments. documented in this encounter [facility] 05-18-2024 History of Present illness Narrative Images from the original note were not included. FOLLOW UP - PSYCHIATRIC PROGRESS NOTE PATIENT: Daly Joaquinr DATE: May 18, 2024 Visit Type: Virtual [...] visit. Either the patient or their legal risk control field representative has been informed of the risks [...] this at her earliest availability due to group home side effect profile of her current medications. [...] ago. Has not been taking the Lamictal. Gazelle that she forgot to take it and [...] use. Wanting to treat sleep issues with Jose L or chay bryan. Discussed the risks of reliance on these [...] suicide (HCC) polysubstance Bipolar depression (HCC) [facility] Gestational diabetes mellitus in [...] the risk of side effects due to termination clerk use of the combination of medication prescribed [...] which included preparing to see the patient, khkt-nm-olix patient care, completing clinical documentation, and counseling and educating the patient/family/caregiver, ordering medications/labs. ADD ON PSYCHOTHERAPY CODE : No SIGNATURE: Clayton Angeles APRN.CNP PATIENT NAME: Daly Evans DATE: May 18, 2024 TIME: 2:07 PM documented in this encounter [facility] 03-03-2024 History of Present illness Narrative Patient did not log in for their follow up visit with the provider today. documented in this encounter [facility] 01-30-2024 Telephone encounter Note Tried calling patient no answer or vm available, sent Lang Ma message [facility] 01-30-2024 Miscellaneous Notes Tried calling patient no answer or vm available, sent Lang Ma message documented in this encounter [facility] 01-19-2024 History of Present illness Narrative Patient did not attend her follow up appointment with the provider today. She did not answer her phone when she was contacted prior to the appointment time. It appeared that she had confirmed her appointment today. documented in this encounter [facility] 12-30-2023 History of Present illness Narrative Patient sent a mychart requesting to reschedule the appointment right before the visit. Patient has been assisted in rescheduling this visit. documented in this encounter [facility] 12-12-2023 Telephone encounter Note Prescription Refill [...] Caba MA December 12, 2023 8:34 AM [facility] 12-12-2023 Telephone encounter Note See refill encounter [facility] 12-12-2023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 Diagnoses Bilateral hand pain Procedures XR HAND GENERAL 3V PA/LAT/OBL BILATERAL RADEX HAND MINIMUM 3 VIEWS Fredrick Boland DO [address] [place] [address] [facility] Referral ID Status Reason Start Date Expiration Date Visits Requested Visits Authorized [id number] Pending Review Auto-Generat ed Referral 02/02/2022 03/04/2023 1 1 [facility] for referral (narrative)* Outpatient Procedure (Routine) - Pending Review Specialty Diagnoses / Procedures Referred By Contac t Referred To [facility] Diagnoses Encounter for long-term (current) use of medications Procedures ECG COMPLETE ECG ROUTINE ECG W/LEAST 12 LDS W/I&R Clayton Angeles, CHANGE MANAGEMENT SPECIALIST.[employer] [place] [address] [facility] [place] [address] [facility] [address] Referral ID Status Reason Start Date Expiration Date Visits Requested Visits Authorized [id number] Pending Review Auto-Generat ed Referral 03/14/2023 03/13/2024 1 1 [facility] for referral (narrative)* Diagnostic Procedure Only (Routine) - Pending Review Specialty Diagnoses / Procedures [facility] To Contact [facility] Diagnoses Encounter for screening mammogram for breast cancer Procedures MILO SCREENING SCREENING MAMMOGRAPHY BI 2-VIEW BREAST INC CAD Fredrick Boland DO [address] [place] [address] [facility] [address] [place] [address] Referral ID Status Reason Start Date Expiration Date Visits Requested Visits Authorized [id number] Pending Review Auto-Generat ed Referral 10/19/2023 11/17/2024 1 1 [facility] for referral (narrative)* Diagnostic Procedure Only (Routine) - Closed Specialty Diagnoses / Procedures Referred By Matias vaughan Referred To Contact XR IMAGING Diagnoses Acute pain of left knee Procedures XR KNEE GENERAL 4V AP BOTH/PA BOTH/LAT/MERC LT KNEE AP-WGT/LAT/MERCHANT Herbert Izquierdo MD [address] [place] [address] [place] [address] Referral ID Status Reason Start Date Expiration Date V isits Requested Visits Authorized [id number] Closed Auto-Generate d Referral 03/12/2021 04/11/2022 1 1 T [facility] for referral (narrative)* Outpatient Procedure (Routine) - New Request Specialty Diagnoses / Procedures Referred By Matias Referred To [facility] Diagnoses Encounter for long-term (current) use of medications Procedures ECG COMPLETE ECG ROUTINE ECG W/LEAST 12 LDS W/I&R Clayton Angeles, CHANGE MANAGEMENT SPECIALIST.[address] [place] [address] [facility] [place] [address] [place] [address] Referral ID Status Reason Start Date Expiration Date Visits Requested Visits Authorized [id number] New Request Auto-Generat ed Referral 05/18/[address] [facility] for visit Narrative* Diagnostic Procedure Only (Routine) - Closed Specialty Diagnoses / Procedures Referred By Matias vaughan Referred To Contact XR IMAGING Diagnoses Acute pain of left knee Procedures XR KNEE GENERAL 4V AP BOTH/PA BOTH/LAT/MERC LT KNEE AP-WGT/LAT/MERCHANT Herbert Izquierdo MD [address] [place] [address] [place] [address] Referral ID Status Reason Start Date Expiration Date V isits Requested Visits Authorized Closed Auto-Generate d Referral 03/12/2021 04/11/2022 1 1 [facility] Summary Purpose Family History No Family [...] Documents on File Type Date Recorded Patient Brain Surgeon Expl anation Advance Directive(s) 10/10/2021 1:22 AM Documents on File Type Date Recorded Patient Brain Surgeon Expl anation Advance Directive(s) 10/10/2021 1:22 AM [...] section and content) DATE CREATED AUTHOR 01/07/2018 [facility] DATE CREATED AUTHOR AUTHOR'S ORGANIZ ATION 06/13/2018 [facility] DATE CREATED AUTHOR AUTHOR'S ORGANIZ ATION 05/30/2021 [facility] DATE CREATED AUTHOR AUTHOR'S ORGANIZ ATION 10/07/2022 [facility] DATE CREATED AUTHOR AUTHOR'S ORGANIZ ATION 10/07/2022 [facility] DATE CREATED AUTHOR AUTHOR'S ORGANIZ ATION 12/08/2022 [facility] DATE CREATED AUTHOR AUTHOR'S ORGANIZ ATION 09/30/2024 [facility] DATE CREATED AUTHOR AUTHOR'S ORGANIZ ATION 10/30/2024 [facility] DATE CREATED AUTHOR AUTHOR'S ORGANIZ ATION 11/04/2024 [facility] DATE CREATED AUTHOR AUTHOR'S ORGANIZ ATION 02/10/2025 [facility] DATE CREATED AUTHOR AUTHOR'S ORGANIZ ATION 02/16/2025 [facility] Source Comments (unrecognize d section and content) In the event this informatio n is protected by the Federal Confidentiality of Alcohol and Drug Abuse Patient Records regulations: The Federal rules restrict any use of the information to criminally investigate or prosecute any alcohol or drug abuse patient.[facility] the event this information is protected by the Federal Confidentiality of Alcohol and Drug Abuse Patient Records regulations: The Federal rules restrict any use of the information to criminally investigate or prosecute any alcohol or drug abuse patient.[facility] the event this information is protected by the Federal Confidentiality of Alcohol and Drug Abuse Patient Records regulations: The Federal rules restrict any use of the information to criminally investigate or prosecute any alcohol or drug abuse patient.[facility] the event this information is protected by the Federal Confidentiality of Alcohol and Drug Abuse Patient Records regulations: The Federal rules restrict any use of the information to criminally investigate or prosecute any alcohol or drug abuse patient.[facility] the event this information is protected by the Federal Confidentiality of Alcohol and Drug Abuse Patient Records regulations: The Federal rules restrict any use of the information to criminally investigate or prosecute any alcohol or drug abuse patient.[facility] the event this information is protected by the Federal Confidentiality of Alcohol and Drug Abuse Patient Records regulations: The Federal rules restrict any use of the information to criminally investigate or prosecute any alcohol or drug abuse patient.[facility] the event this information is protected by the Federal Confidentiality of Alcohol and Drug Abuse Patient Records regulations: The Federal rules restrict any use of the information to criminally investigate or prosecute any alcohol or drug abuse patient.[facility] the event this information is protected by the Federal Confidentiality of Alcohol and Drug Abuse Patient Records regulations: The Federal rules restrict any use of the information to criminally investigate or prosecute any alcohol or drug abuse patient.[facility] the event this information is protected by the Federal Confidentiality of Alcohol and Drug Abuse Patient Records regulations: The Federal rules restrict any use of the information to criminally investigate or prosecute any alcohol or drug abuse patient.[facility] the event this information is protected by the Federal Confidentiality of Alcohol and Drug Abuse Patient Records regulations: The Federal rules restrict any use of the information to criminally investigate or prosecute any alcohol or drug abuse patient.[facility] the event this information is protected by the Federal Confidentiality of Alcohol and Drug Abuse Patient Records regulations: The Federal rules restrict any use of the information to criminally investigate or prosecute any alcohol or drug abuse patient.[facility] the event this information is protected by the Federal Confidentiality of Alcohol and Drug Abuse Patient Records regulations: The Federal rules restrict any use of the information to criminally investigate or prosecute any alcohol or drug abuse patient.[facility] Hospital[facility] the event this information is protected by the Federal Confidentiality of Alcohol and Drug Abuse Patient Records regulations: The Federal rules restrict any use of the information to criminally investigate or prosecute any alcohol or drug abuse patient.[facility] the event this information is protected by the Federal Confidentiality of Alcohol and Drug Abuse Patient Records regulations: The Federal rules restrict any use of the information to criminally investigate or prosecute any alcohol or drug abuse patient.[facility] Hospital[facility] the event this information is protected by the Federal Confidentiality of Alcohol and Drug Abuse Patient Records regulations: The Federal rules restrict any use of the information to criminally investigate or prosecute any alcohol or drug abuse patient.[facility] the event this information is protected by the Federal Confidentiality of Alcohol and Drug Abuse Patient Records regulations: The Federal rules restrict any use of the information to criminally investigate or prosecute any alcohol or drug abuse patient.[facility] the event this information is protected by the Federal Confidentiality of Alcohol and Drug Abuse Patient Records regulations: The Federal rules restrict any use of the information to criminally investigate or prosecute any alcohol or drug abuse patient.[facility] the event this information is protected by the Federal Confidentiality of Alcohol and Drug Abuse Patient Records regulations: The Federal rules restrict any use of the information to criminally investigate or prosecute any alcohol or drug abuse patient.[facility] the event this information is protected by the Federal Confidentiality of Alcohol and Drug Abuse Patient Records regulations: The Federal rules restrict any use of the information to criminally investigate or prosecute any alcohol or drug abuse patient.[facility] Hospital[facility] the event this information is protected by the Federal Confidentiality of Alcohol and Drug Abuse Patient Records regulations: The Federal rules restrict any use of the information to criminally investigate or prosecute any alcohol or drug abuse patient.[facility] HospitalIn the event this information is protected by the Federal Confidentiality of Alcohol and Drug Abuse Patient Records regulations: The Federal rules restrict any use of the information to criminally investigate or prosecute any alcohol or drug abuse patient.[facility] HospitalIn the event this information is protected by the Federal Confidentiality of Alcohol and Drug Abuse Patient Records regulations: The Federal rules restrict any use of the information to criminally investigate or prosecute any alcohol or drug abuse patient.[facility] HospitalIn the event this information is protected by the Federal Confidentiality of Alcohol and Drug Abuse Patient Records regulations: The Federal rules restrict any use of the information to criminally investigate or prosecute any alcohol or drug abuse patient.[facility] HospitalIn the event this information is protected by the Federal Confidentiality of Alcohol and Drug Abuse Patient Records regulations: The Federal rules restrict any use of the information to criminally investigate or prosecute any alcohol or drug abuse patient.[facility] HospitalIn the event this information is protected by the Federal Confidentiality of Alcohol and Drug Abuse Patient Records regulations: The Federal rules restrict any use of the information to criminally investigate or prosecute any alcohol or drug abuse patient.[facility] HospitalIn the event this information is protected by the Federal Confidentiality of Alcohol and Drug Abuse Patient Records regulations: The Federal rules restrict any use of the information to criminally investigate or prosecute any alcohol or drug abuse patient.[facility] HospitalIn the event this information is protected by the Federal Confidentiality of Alcohol and Drug Abuse Patient Records regulations: The Federal rules restrict any use of the information to criminally investigate or prosecute any alcohol or drug abuse patient.[facility] HospitalIn the event this information is protected by the Federal Confidentiality of Alcohol and Drug Abuse Patient Records regulations: The Federal rules restrict any use of the information to criminally investigate or prosecute any alcohol or drug abuse patient.[facility] HospitalIn the event this information is protected by the Federal Confidentiality of Alcohol and Drug Abuse Patient Records regulations: The Federal rules restrict any use of the information to criminally investigate or prosecute any alcohol or drug abuse patient.[facility] HospitalIn the event this information is protected by the Federal Confidentiality of Alcohol and Drug Abuse Patient Records regulations: The Federal rules restrict any use of the information to criminally investigate or prosecute any alcohol or drug abuse patient.[facility] HospitalIn the event this information is protected by the Federal Confidentiality of Alcohol and Drug Abuse Patient Records regulations: The Federal rules restrict any use of the information to criminally investigate or prosecute any alcohol or drug abuse patient.[facility] HospitalIn the event this information is protected by the Federal Confidentiality of Alcohol and Drug Abuse Patient Records regulations: The Federal rules restrict any use of the information to criminally investigate or prosecute any alcohol or drug abuse patient.[facility] HospitalIn the event this information is protected by the Federal Confidentiality of Alcohol and Drug Abuse Patient Records regulations: The Federal rules restrict any use of the information to criminally investigate or prosecute any alcohol or drug abuse patient.[facility] HospitalIn the event this information is protected by the Federal Confidentiality of Alcohol and Drug Abuse Patient Records regulations: The Federal rules restrict any use of the information to criminally investigate or prosecute any alcohol or drug abuse patient.[facility] HospitalIn the event this information is protected by the Federal Confidentiality of Alcohol and Drug Abuse Patient Records regulations: The Federal rules restrict any use of the information to criminally investigate or prosecute any alcohol or drug abuse patient.[facility] HospitalIn the event this information is protected by the Federal Confidentiality of Alcohol and Drug Abuse Patient Records regulations: The Federal rules restrict any use of the information to criminally investigate or prosecute any alcohol or drug abuse patient.[facility] HospitalIn the event this information is protected by the Federal Confidentiality of Alcohol and Drug Abuse Patient Records regulations: The Federal rules restrict any use of the information to criminally investigate or prosecute any alcohol or drug abuse patient.[facility] HospitalIn the event this information is protected by the Federal Confidentiality of Alcohol and Drug Abuse Patient Records regulations: The Federal rules restrict any use of the information to criminally investigate or prosecute any alcohol or drug abuse patient.[facility] HospitalIn the event this information is protected by the Federal Confidentiality of Alcohol and Drug Abuse Patient Records regulations: The Federal rules restrict any use of the information to criminally investigate or prosecute any alcohol or drug abuse patient.[facility] HospitalIn the event this information is protected by the Federal Confidentiality of Alcohol and Drug Abuse Patient Records regulations: The Federal rules restrict any use of the information to criminally investigate or prosecute any alcohol or drug abuse patient.[facility] HospitalIn the event this information is protected by the Federal Confidentiality of Alcohol and Drug Abuse Patient Records regulations: The Federal rules restrict any use of the information to criminally investigate or prosecute any alcohol or drug abuse patient.[facility] HospitalIn the event this information is protected by the Federal Confidentiality of Alcohol and Drug Abuse Patient Records regulations: The Federal rules restrict any use of the information to criminally investigate or prosecute any alcohol or drug abuse patient.[facility] HospitalIn the event this information is protected by the Federal Confidentiality of Alcohol and Drug Abuse Patient Records regulations: The Federal rules restrict any use of the information to criminally investigate or prosecute any alcohol or drug abuse patient.[facility] HospitalIn the event this information is protected by the Federal Confidentiality of Alcohol and Drug Abuse Patient Records regulations: The Federal rules restrict any use of the information to criminally investigate or prosecute any alcohol or drug abuse patient.[facility] HospitalIn the event this information is protected by the Federal Confidentiality of Alcohol and Drug Abuse Patient Records regulations: The Federal rules restrict any use of the information to criminally investigate or prosecute any alcohol or drug abuse patient.[facility] HospitalIn the event this information is protected by the Federal Confidentiality of Alcohol and Drug Abuse Patient Records regulations: The Federal rules restrict any use of the information to criminally investigate or prosecute any alcohol or drug abuse patient.[facility] HospitalIn the event this information is protected by the Federal Confidentiality of Alcohol and Drug Abuse Patient Records regulations: The Federal rules restrict any use of the information to criminally investigate or prosecute any alcohol or drug abuse patient.[facility] HospitalIn the event this information is protected by the Federal Confidentiality of Alcohol and Drug Abuse Patient Records regulations: The Federal rules restrict any use of the information to criminally investigate or prosecute any alcohol or drug abuse patient.[facility] HospitalIn the event this information is protected by the Federal Confidentiality of Alcohol and Drug Abuse Patient Records regulations: The Federal rules restrict any use of the information to criminally investigate or prosecute any alcohol or drug abuse patient.[facility] HospitalIn the event this information is protected by the Federal Confidentiality of Alcohol and Drug Abuse Patient Records regulations: The Federal rules restrict any use of the information to criminally investigate or prosecute any alcohol or drug abuse patient.[facility] HospitalIn the event this information is protected by the Federal Confidentiality of Alcohol and Drug Abuse Patient Records regulations: The Federal rules restrict any use of the information to criminally investigate or prosecute any alcohol or drug abuse patient.[facility] HospitalIn the event this information is protected by the Federal Confidentiality of Alcohol and Drug Abuse Patient Records regulations: The Federal rules restrict any use of the information to criminally investigate or prosecute any alcohol or drug abuse patient.[facility] HospitalIn the event this information is protected by the Federal Confidentiality of Alcohol and Drug Abuse Patient Records regulations: The Federal rules restrict any use of the information to criminally investigate or prosecute any alcohol or drug abuse patient.[facility] HospitalIn the event this information is protected by the Federal Confidentiality of Alcohol and Drug Abuse Patient Records regulations: The Federal rules restrict any use of the information to criminally investigate or prosecute any alcohol or drug abuse patient.[facility] HospitalIn the event this information is protected by the Federal Confidentiality of Alcohol and Drug Abuse Patient Records regulations: The Federal rules restrict any use of the information to criminally investigate or prosecute any alcohol or drug abuse patient.[facility] HospitalIn the event this information is protected by the Federal Confidentiality of Alcohol and Drug Abuse Patient Records regulations: The Federal rules restrict any use of the information to criminally investigate or prosecute any alcohol or drug abuse patient.[facility] HospitalIn the event this information is protected by the Federal Confidentiality of Alcohol and Drug Abuse Patient Records regulations: The Federal rules restrict any use of the information to criminally investigate or prosecute any alcohol or drug abuse patient.[facility] HospitalIn the event this information is protected by the Federal Confidentiality of Alcohol and Drug Abuse Patient Records regulations: The Federal rules restrict any use of the information to criminally investigate or prosecute any alcohol or drug abuse patient.[facility] HospitalIn the event this information is protected by the Federal Confidentiality of Alcohol and Drug Abuse Patient Records regulations: The Federal rules restrict any use of the information to criminally investigate or prosecute any alcohol or drug abuse patient.[facility] HospitalIn the event this information is protected by the Federal Confidentiality of Alcohol and Drug Abuse Patient Records regulations: The Federal rules restrict any use of the information to criminally investigate or prosecute any alcohol or drug abuse patient.[facility] HospitalIn the event this information is protected by the Federal Confidentiality of Alcohol and Drug Abuse Patient Records regulations: The Federal rules restrict any use of the information to criminally investigate or prosecute any alcohol or drug abuse patient.[facility] HospitalIn the event this information is protected by the Federal Confidentiality of Alcohol and Drug Abuse Patient Records regulations: The Federal rules restrict any use of the information to criminally investigate or prosecute any alcohol or drug abuse patient.[facility] HospitalIn the event this information is protected by the Federal Confidentiality of Alcohol and Drug Abuse Patient Records regulations: The Federal rules restrict any use of the information to criminally investigate or prosecute any alcohol or drug abuse patient.[facility] HospitalIn the event this information is protected by the Federal Confidentiality of Alcohol and Drug Abuse Patient Records regulations: The Federal rules restrict any use of the information to criminally investigate or prosecute any alcohol or drug abuse patient.[facility] HospitalIn the event this information is protected by the Federal Confidentiality of Alcohol and Drug Abuse Patient Records regulations: The Federal rules restrict any use of the information to criminally investigate or prosecute any alcohol or drug abuse patient.[facility] HospitalIn the event this information is protected by the Federal Confidentiality of Alcohol and Drug Abuse Patient Records regulations: The Federal rules restrict any use of the information to criminally investigate or prosecute any alcohol or drug abuse patient.[facility] HospitalIn the event this information is protected by the Federal Confidentiality of Alcohol and Drug Abuse Patient Records regulations: The Federal rules restrict any use of the information to criminally investigate or prosecute any alcohol or drug abuse patient.[facility] HospitalIn the event this information is protected by the Federal Confidentiality of Alcohol and Drug Abuse Patient Records regulations: The Federal rules restrict any use of the information to criminally investigate or prosecute any alcohol or drug abuse patient.[facility] HospitalIn the event this information is protected by the Federal Confidentiality of Alcohol and Drug Abuse Patient Records regulations: The Federal rules restrict any use of the information to criminally investigate or prosecute any alcohol or drug abuse patient.[facility] HospitalIn the event this information is protected by the Federal Confidentiality of Alcohol and Drug Abuse Patient Records regulations: The Federal rules restrict any use of the information to criminally investigate or prosecute any alcohol or drug abuse patient.[facility] HospitalIn the event this information is protected by the Federal Confidentiality of Alcohol and Drug Abuse Patient Records regulations: The Federal rules restrict any use of the information to criminally investigate or prosecute any alcohol or drug abuse patient.[facility] HospitalIn the event this information is protected by the Federal Confidentiality of Alcohol and Drug Abuse Patient Records regulations: The Federal rules restrict any use of the information to criminally investigate or prosecute any alcohol or drug abuse patient.[facility] HospitalIn the event this information is protected by the Federal Confidentiality of Alcohol and Drug Abuse Patient Records regulations: The Federal rules restrict any use of the information to criminally investigate or prosecute any alcohol or drug abuse patient.[facility] HospitalIn the event this information is protected by the Federal Confidentiality of Alcohol and Drug Abuse Patient Records regulations: The Federal rules restrict any use of the information to criminally investigate or prosecute any alcohol or drug abuse patient.[facility] HospitalIn the event this information is protected by the Federal Confidentiality of Alcohol and Drug Abuse Patient Records regulations: The Federal rules restrict any use of the information to criminally investigate or prosecute any alcohol or drug abuse patient.[facility] HospitalIn the event this information is protected by the Federal Confidentiality of Alcohol and Drug Abuse Patient Records regulations: The Federal rules restrict any use of the information to criminally investigate or prosecute any alcohol or drug abuse patient.[facility] HospitalIn the event this information is protected by the Federal Confidentiality of Alcohol and Drug Abuse Patient Records regulations: The Federal rules restrict any use of the information to criminally investigate or prosecute any alcohol or drug abuse patient.[facility] HospitalIn the event this information is protected by the Federal Confidentiality of Alcohol and Drug Abuse Patient Records regulations: The Federal rules restrict any use of the information to criminally investigate or prosecute any alcohol or drug abuse patient.[facility] HospitalIn the event this information is protected by the Federal Confidentiality of Alcohol and Drug Abuse Patient Records regulations: The Federal rules restrict any use of the information to criminally investigate or prosecute any alcohol or drug abuse patient.[facility] HospitalIn the event this information is protected by the Federal Confidentiality of Alcohol and Drug Abuse Patient Records regulations: The Federal rules restrict any use of the information to criminally investigate or prosecute any alcohol or drug abuse patient.[facility] HospitalIn the event this information is protected by the Federal Confidentiality of Alcohol and Drug Abuse Patient Records regulations: The Federal rules restrict any use of the information to criminally investigate or prosecute any alcohol or drug abuse patient.[facility] HospitalIn the event this information is protected by the Federal Confidentiality of Alcohol and Drug Abuse Patient Records regulations: The Federal rules restrict any use of the information to criminally investigate or prosecute any alcohol or drug abuse patient.[facility] HospitalIn the event this information is protected by the Federal Confidentiality of Alcohol and Drug Abuse Patient Records regulations: The Federal rules restrict any use of the information to criminally investigate or prosecute any alcohol or drug abuse patient.[facility] HospitalIn the event this information is protected by the Federal Confidentiality of Alcohol and Drug Abuse Patient Records regulations: The Federal rules restrict any use of the information to criminally investigate or prosecute any alcohol or drug abuse patient.[facility] HospitalIn the event this information is protected by the Federal Confidentiality of Alcohol and Drug Abuse Patient Records regulations: The Federal rules restrict any use of the information to criminally investigate or prosecute any alcohol or drug abuse patient.[facility] HospitalIn the event this information is protected by the Federal Confidentiality of Alcohol and Drug Abuse Patient Records regulations: The Federal rules restrict any use of the information to criminally investigate or prosecute any alcohol or drug abuse patient.[facility] HospitalIn the event this information is protected by the Federal Confidentiality of Alcohol and Drug Abuse Patient Records regulations: The Federal rules restrict any use of the information to criminally investigate or prosecute any alcohol or drug abuse patient.[facility] HospitalIn the event this information is protected by the Federal Confidentiality of Alcohol and Drug Abuse Patient Records regulations: The Federal rules restrict any use of the information to criminally investigate or prosecute any alcohol or drug abuse patient.[facility] HospitalIn the event this information is protected by the Federal Confidentiality of Alcohol and Drug Abuse Patient Records regulations: The Federal rules restrict any use of the information to criminally investigate or prosecute any alcohol or drug abuse patient.[facility] HospitalIn the event this information is protected by the Federal Confidentiality of Alcohol and Drug Abuse Patient Records regulations: The Federal rules restrict any use of the information to criminally investigate or prosecute any alcohol or drug abuse patient.[facility] HospitalIn the event this information is protected by the Federal Confidentiality of Alcohol and Drug Abuse Patient Records regulations: The Federal rules restrict any use of the information to criminally investigate or prosecute any alcohol or drug abuse patient.[facility] HospitalIn the event this information is protected by the Federal Confidentiality of Alcohol and Drug Abuse Patient Records regulations: The Federal rules restrict any use of the information to criminally investigate or prosecute any alcohol or drug abuse patient.[facility] HospitalIn the event this information is protected by the Federal Confidentiality of Alcohol and Drug Abuse Patient Records regulations: The Federal rules restrict any use of the information to criminally investigate or prosecute any alcohol or drug abuse patient.[facility] HospitalIn the event this information is protected by the Federal Confidentiality of Alcohol and Drug Abuse Patient Records regulations: The Federal rules restrict any use of the information to criminally investigate or prosecute any alcohol or drug abuse patient.[facility] HospitalIn the event this information is protected by the Federal Confidentiality of Alcohol and Drug Abuse Patient Records regulations: The Federal rules restrict any use of the information to criminally investigate or prosecute any alcohol or drug abuse patient.[facility] HospitalIn the event this information is protected by the Federal Confidentiality of Alcohol and Drug Abuse Patient Records regulations: The Federal rules restrict any use of the information to criminally investigate or prosecute any alcohol or drug abuse patient.[facility] HospitalIn the event this information is protected by the Federal Confidentiality of Alcohol and Drug Abuse Patient Records regulations: The Federal rules restrict any use of the information to criminally investigate or prosecute any alcohol or drug abuse patient.[facility] HospitalIn the event this information is protected by the Federal Confidentiality of Alcohol and Drug Abuse Patient Records regulations: The Federal rules restrict any use of the information to criminally investigate or prosecute any alcohol or drug abuse patient.[facility] HospitalIn the event this information is protected by the Federal Confidentiality of Alcohol and Drug Abuse Patient Records regulations: The Federal rules restrict any use of the information to criminally investigate or prosecute any alcohol or drug abuse patient.[facility] HospitalIn the event this information is protected by the Federal Confidentiality of Alcohol and Drug Abuse Patient Records regulations: The Federal rules restrict any use of the information to criminally investigate or prosecute any alcohol or drug abuse patient.[facility] HospitalIn the event this information is protected by the Federal Confidentiality of Alcohol and Drug Abuse Patient Records regulations: The Federal rules restrict any use of the information to criminally investigate or prosecute any alcohol or drug abuse patient.[facility] HospitalIn the event this information is protected by the Federal Confidentiality of Alcohol and Drug Abuse Patient Records regulations: The Federal rules restrict any use of the information to criminally investigate or prosecute any alcohol or drug abuse patient.[facility] HospitalIn the event this information is protected by the Federal Confidentiality of Alcohol and Drug Abuse Patient Records regulations: The Federal rules restrict any use of the information to criminally investigate or prosecute any alcohol or drug abuse patient.[facility] HospitalIn the event this information is protected by the Federal Confidentiality of Alcohol and Drug Abuse Patient Records regulations: The Federal rules restrict any use of the information to criminally investigate or prosecute any alcohol or drug abuse patient.[facility] HospitalIn the event this information is protected by the Federal Confidentiality of Alcohol and Drug Abuse Patient Records regulations: The Federal rules restrict any use of the information to criminally investigate or prosecute any alcohol or drug abuse patient.[facility] HospitalIn the event this information is protected by the Federal Confidentiality of Alcohol and Drug Abuse Patient Records regulations: The Federal rules restrict any use of the information to criminally investigate or prosecute any alcohol or drug abuse patient.[facility] HospitalIn the event this information is protected by the Federal Confidentiality of Alcohol and Drug Abuse Patient Records regulations: The Federal rules restrict any use of the information to criminally investigate or prosecute any alcohol or drug abuse patient.[facility] HospitalIn the event this information is protected by the Federal Confidentiality of Alcohol and Drug Abuse Patient Records regulations: The Federal rules restrict any use of the information to criminally investigate or prosecute any alcohol or drug abuse patient.[facility] HospitalIn the event this information is protected by the Federal Confidentiality of Alcohol and Drug Abuse Patient Records regulations: The Federal rules restrict any use of the information to criminally investigate or prosecute any alcohol or drug abuse patient.[facility] HospitalIn the event this information is protected by the Federal Confidentiality of Alcohol and Drug Abuse Patient Records regulations: The Federal rules restrict any use of the information to criminally investigate or prosecute any alcohol or drug abuse patient.[facility] HospitalIn the event this information is protected by the Federal Confidentiality of Alcohol and Drug Abuse Patient Records regulations: The Federal rules restrict any use of the information to criminally investigate or prosecute any alcohol or drug abuse patient.[facility] HospitalIn the event this information is protected by the Federal Confidentiality of Alcohol and Drug Abuse Patient Records regulations: The Federal rules restrict any use of the information to criminally investigate or prosecute any alcohol or drug abuse patient.[facility] HospitalIn the event this information is protected by the Federal Confidentiality of Alcohol and Drug Abuse Patient Records regulations: The Federal rules restrict any use of the information to criminally investigate or prosecute any alcohol or drug abuse patient.[facility] HospitalIn the event this information is protected by the Federal Confidentiality of Alcohol and Drug Abuse Patient Records regulations: The Federal rules restrict any use of the information to criminally investigate or prosecute any alcohol or drug abuse patient.[facility] HospitalIn the event this information is protected by the Federal Confidentiality of Alcohol and Drug Abuse Patient Records regulations: The Federal rules restrict any use of the information to criminally investigate or prosecute any alcohol or drug abuse patient.[facility] HospitalIn the event this information is protected by the Federal Confidentiality of Alcohol and Drug Abuse Patient Records regulations: The Federal rules restrict any use of the information to criminally investigate or prosecute any alcohol or drug abuse patient.[facility] HospitalIn the event this information is protected by the Federal Confidentiality of Alcohol and Drug Abuse Patient Records regulations: The Federal rules restrict any use of the information to criminally investigate or prosecute any alcohol or drug abuse patient.[facility] HospitalIn the event this information is protected by the Federal Confidentiality of Alcohol and Drug Abuse Patient Records regulations: The Federal rules restrict any use of the information to criminally investigate or prosecute any alcohol or drug abuse patient.[facility] HospitalIn the event this information is protected by the Federal Confidentiality of Alcohol and Drug Abuse Patient Records regulations: The Federal rules restrict any use of the information to criminally investigate or prosecute any alcohol or drug abuse patient.[facility] HospitalIn the event this information is protected by the Federal Confidentiality of Alcohol and Drug Abuse Patient Records regulations: The Federal rules restrict any use of the information to criminally investigate or prosecute any alcohol or drug abuse patient.[facility] HospitalIn the event this information is protected by the Federal Confidentiality of Alcohol and Drug Abuse Patient Records regulations: The Federal rules restrict any use of the information to criminally investigate or prosecute any alcohol or drug abuse patient.[facility] HospitalIn the event this information is protected by the Federal Confidentiality of Alcohol and Drug Abuse Patient Records regulations: The Federal rules restrict any use of the information to criminally investigate or prosecute any alcohol or drug abuse patient.[facility] HospitalIn the event this information is protected by the Federal Confidentiality of Alcohol and Drug Abuse Patient Records regulations: The Federal rules restrict any use of the information to criminally investigate or prosecute any alcohol or drug abuse patient.[facility] HospitalIn the event this information is protected by the Federal Confidentiality of Alcohol and Drug Abuse Patient Records regulations: The Federal rules restrict any use of the information to criminally investigate or prosecute any alcohol or drug abuse patient.[facility] Reason for Visit (unrecogniz ed section and content) Reason Comments Follow Up Specialty Diagnoses / Procedures Referred By Contac t Referred To Contact Psychiatry / ADULT PSYCHIATRY Diagnoses med check Procedures VIDEO PSYC/PSYL EST Clayton Angeles, CHANGE MANAGEMENT SPECIALIST.TOW MATE [address] [place] [address] Clayton Angeles, CHANGE MANAGEMENT SPECIALIST.[facility] M[address] [place] [address] Referral ID Status Reason Start Date Expiration Date V isits Requested Visits Authorized [id number] New Request 05/18/2024 08/16/2024 [address] Reason Comments Results 10/10 Reason Comments New Patient Evaluation Specialty Diagnoses / Procedures Referred By Contac t Referred To Contact Diagnoses Panic attacks Bipolar affective disorder, current episode mixed, current episode severity unspecified (HCC) Depressive disorder Procedures CONSULT TO PSYCHIATRY OFFICE/OUTPATIENT NEW HIGH MDM 60-74 MINUTES Fredrick Boland, [address] [place] [address] Referral ID Status Reason Start Date Expiration Date Visits Requested Visits Authorized [id number] Pending Review PCP Requested Referral 07/20/2021 07/20/2022 [...] ECT Referral 08/24/2022 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 Juan Manuel Byrd Reason Comments Critical Lab Reason Comments Needs sutures in abdominal , needs on a blood thinner, talk 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 Date Comments Results 01/15/2025 Reason Comments Research IRB: [id number] Caring f or OutPatiEnts after Acute Kidney Injury (COPE-JONATAN) trial PI: Dr. Juan Manuel Byrd Reason Comments Consult Care Teams (unrecognized sec tion and content) Ops Analyst Relationship Specialty Start Date End Date Fredrick Boland, DO [address] [place] [address] PCP - General Family Practice 10/29/15 Ops Analyst Relationship Specialty Start Date End Date Fredrick Boland, DO [address] [place] [address] PCP - General Family Practice 10/29/15 Ops Analyst Relationship Specialty Start Date End Date Fredrick Boland, DO [address] [place] [address] PCP - General Family Practice 10/29/15 Ops Analyst Relationship Specialty Start Date End Date Fredrick Boland, DO [address] [place] [address] PCP - General Family Practice 10/29/15 Ops Analyst Relationship Specialty Start Date End Date Fredrick Boland, DO [address] [place] [address] PCP - General Family Practice 10/29/15 Ops Analyst Relationship Specialty Start Date End Date Fredrick Boland, DO [address] [place] [address] PCP - General Family Practice 10/29/15 Ops Analyst Relationship Specialty Start Date End Date Fredrick Boland, DO [address] [place] [address] PCP - General Family Practice 10/29/15 Ops Analyst Relationship Specialty Start Date End Date Fredrick Boland, DO [address] [place] [address] PCP - General Family Practice 10/29/15 Ops Analyst Relationship Specialty Start Date End Date Fredrick Boland, DO [address] [place] [address] PCP - General Family Practice 10/29/15 Ops Analyst Relationship Specialty Start Date End Date Fredrick Boland, DO [address] [place] [address] PCP - General Family Practice 10/29/15 Ops Analyst Relationship Specialty Start Date End Date Fredrick Boland, DO [address] [place] [address] PCP - General Family Practice 10/29/15 Ops Analyst Relationship Specialty Start Date End Date Fredrick Boland, DO [address] [place] [address] PCP - General Family Practice 10/29/15 Ops Analyst Relationship Specialty Start Date End Date Fredrick Boland, DO [address] [place] [address] PCP - General Family Practice 10/29/15 Ops Analyst Relationship Specialty Start Date End Date Fredrick Boland, DO [address] [place] [address] PCP - General Family Practice 10/29/15 Ops Analyst Relationship Specialty Start Date End Date Fredrick Boland, DO [address] [place] [address] PCP - General Family Medicine 10/29/15 Ops Analyst Relationship Specialty Start Date End Date Fredrick Boland, DO [address] [place] [address] PCP - General Family Medicine 10/29/15 Ops Analyst Relationship Specialty Start Date End Date Fredrick Boland, DO [address] [place] [address] PCP - General Family Medicine 10/29/15 Ops Analyst Relationship Specialty Start Date End Date Fredirck Boland, DO [address] [place] [address] PCP - General Family Medicine 10/29/15 Ops Analyst Relationship Specialty Start Date End Date Fredrick Boland, DO [address] [place] [address] PCP - General Family Medicine 10/29/15 Ops Analyst Relationship Specialty Start Date End Date Fredrick Boland, DO [address] [place] [address] PCP - General Family Medicine 10/29/15 Ops Analyst Relationship Specialty Start Date End Date Fredrick Boland, DO [address] [place] [address] PCP - General Family Medicine 10/29/15 Ops Analyst Relationship Specialty Start Date End Date Fredrick Boland, DO [address] [place] [address] PCP - General Family Medicine 10/29/15 Ops Analyst Relationship Specialty Start Date End Date Fredrick Boland, DO [address] [place] [address] PCP - General Family Medicine 10/29/15 Ops Analyst Relationship Specialty Start Date End Date Fredrick Boland, DO [address] [place] [address] PCP - General Family Medicine 10/29/15 Ops Analyst Relationship Specialty Start Date End Date Fredrick Boland, DO [address] [place] [address] PCP - General Family Medicine 10/29/15 Ariella Cortes, RN Registered Nurse Psychiatry 08/30/22 Ops Analyst Relationship Specialty Start Date End Date Fredrick Boland, DO [address] [place] [address] PCP - General Family Medicine 10/29/15 Ariella Cortes, RN Registered Nurse Psychiatry 08/30/22 Ops Analyst Relationship Specialty Start Date End Date Fredrick Boland, DO [address] [place] [address] PCP - General Family Medicine 10/29/15 Ariella Cortes, RN Registered Nurse Psychiatry 08/30/22 Ops Analyst Relationship Specialty Start Date End Date Fredrick Boland, DO [address] [place] [address] PCP - General Family Medicine 10/29/15 Ariella Cortes, RN Registered Nurse Psychiatry 08/30/22 Ops Analyst Relationship Specialty Start Date End Date Fredrick Boland, DO [address] [place] [address] PCP - General Family Medicine 10/29/15 Ariella Cortes, RN Registered Nurse Psychiatry 08/30/22 Ops Analyst Relationship Specialty Start Date End Date Fredrikc Boland, DO [address] [place] [address] PCP - General Family Medicine 10/29/15 Ariella Cortes, RN Registered Nurse Psychiatry 08/30/22 Ops Analyst Relationship Specialty Start Date End Date Fredrick Boland, DO [address] [place] [address] PCP - General Family Medicine 10/29/15 Ariella Cortes, RN Registered Nurse Psychiatry 08/30/22 Ops Analyst Relationship Specialty Start Date End Date Fredrick Boland DO [address] [place] [place] [address] PCP - General Family Medicine 10/29/15 Ariella Cortes, RN Registered Nurse Psychiatry 08/30/22 Ops Analyst Relationship Specialty Start Date End Date Fredrick Boland DO [address] [facility] [place] [address] PCP - General Family Medicine 10/29/15 Ariella Cortes, RN Registered Nurse Psychiatry 08/30/22 Ops Analyst Relationship Specialty Start Date End Date Fredrick Boland DO [address] [facility] [place] [address] PCP - General Family Medicine 10/29/15 Ariella Cortes, RN Registered Nurse Psychiatry 08/30/22 Ops Analyst Relationship Specialty Start Date End Date Fredrick Boland DO [address] [facility] [place] [address] PCP - General Family Medicine 10/29/15 Ariella Cortes RN Registered Nurse Psychiatry 08/30/22 Ops Analyst Relationship Specialty Start Date End Date Fredrick Boland DO [address] [facility] [place] [address] PCP - General Family Medicine 10/29/15 Ariella Cortes RN Registered Nurse Psychiatry 08/30/22 Ops Analyst Relationship Specialty Start Date End Date Fredrick Boland DO [address] [facility] [place] [address] PCP - General Family Medicine 10/29/15 Ariella Cortes, RN Registered Nurse Psychiatry 08/30/22 Ops Analyst Relationship Specialty Start Date End Date Fredrick Boland DO [address] [facility] [place] [address] PCP - General Family Medicine 10/29/15 Ariella Cortes, RN Registered Nurse Psychiatry 08/30/22 Ops Analyst Relationship Specialty Start Date End Date Fredrick Boland DO [address] [facility] [place] [address] PCP - General Family Medicine 10/29/15 Ariella Cortes, RN Registered Nurse Psychiatry 08/30/22 Ops Analyst Relationship Specialty Start Date End Date Fredrick Boland DO [address] [facility] [place] [address] PCP - General Family Medicine 10/29/15 Ariella Cortes, RN Registered Nurse Psychiatry 08/30/22 Ops Analyst Relationship Specialty Start Date End Date Fredrick Boland DO [address] [facility] [place] [address] PCP - General Family Medicine 10/29/15 Ariella Cortes, RN Registered Nurse Psychiatry 08/30/22 Ops Analyst Relationship Specialty Start Date End Date Fredrick Boland DO [address] [facility] [place] [address] PCP - General Family Medicine 10/29/15 Ariella Cortes, RN Registered Nurse Psychiatry 08/30/22 Ops Analyst Relationship Specialty Start Date End Date Fredrick Boland DO [address] [facility] [place] [address] PCP - General Family Medicine 10/29/15 Ariella Cortes, RN Registered Nurse Psychiatry 08/30/22 Ops Analyst Relationship Specialty Start Date End Date Fredrick Boland DO [address] [facility] [place] [address] PCP - General Family Medicine 10/29/15 Ariella Cortes, RN Registered Nurse Psychiatry 08/30/22 Ops Analyst Relationship Specialty Start Date End Date Fredrick Boland DO [address] [place] [address] PCP - General Family Medicine 10/29/15 Ops Analyst Relationship Specialty Start Date End Date Fredrick Boland DO [address] [place] [address] PCP - General Family Medicine 10/29/15 Ariella Cortes, RN Registered Nurse Psychiatry 08/30/22 Ops Analyst Relationship Specialty Start Date End Date Fredrick Boland DO [address] [place] [address] PCP - General Family Medicine 10/29/15 Ariella Cortes, RN Registered Nurse Psychiatry 08/30/22 Yesenia Rangel, CHANGE MANAGEMENT SPECIALIST.TOW MATE [address] [place] [address] Chemistry Specialist Family Medicine 06/03/24 Xochilt Gaston, CHANGE MANAGEMENT SPECIALIST.TOW MATE [address] [place] [address] Chemistry Specialist Family Medicine 06/03/24 Ops Analyst Relationship Specialty Start Date End Date Fredrick Boland DO [address] [place] [address] PCP - General Family Medicine 10/29/15 Ariella Cortes, RN Registered Nurse Psychiatry 08/30/22 Yesenia Rangel, CHANGE MANAGEMENT SPECIALIST.TOW MATE [address] [facility] [place] [address] Chemistry Specialist Family Medicine 06/03/24 Xochilt Gaston, CHANGE MANAGEMENT SPECIALIST.TOW MATE [address] [place] [address] [facility] 06/03/24 Ops Analyst Relationship Specialty Start Date End Date Fredrick Boland DO [address] [place] [address] PCP - General Family Medicine 10/29/15 Ariella Cortes RN Registered Nurse Psychiatry 08/30/22 08/07/24 Yesenia Rangel, CHANGE MANAGEMENT SPECIALIST.TOW MATE [address] [place] [address] [facility] 06/03/24 MarilinXochilt, CHANGE MANAGEMENT SPECIALIST.TOW MATE [address] [place] [address] [facility] 06/03/24 Ops Analyst Relationship Specialty Start Date End Date Fredrick Boland DO [address] [place] [address] PCP - General Family Medicine 10/29/15 Yesenia Rangel, CHANGE MANAGEMENT SPECIALIST.TOW MATE [address] [place] [address] [facility] 06/03/24 MarilinXochilt, CHANGE MANAGEMENT SPECIALIST.TOW MATE [address] [place] [address] [facility] 06/03/24 Ops Analyst Relationship Specialty Start Date End Date Fredrick Boland DO [address] [place] [address] PCP - General Family Medicine 10/29/15 Yesenia Rangel, CHANGE MANAGEMENT SPECIALIST.TOW MATE [address] [place] [address] [facility] 06/03/24 Xochilt Gaston, CHANGE MANAGEMENT SPECIALIST.TOW MATE [address] [place] [address] [facility] 06/03/24 Ops Analyst Relationship Specialty Start Date End Date Fredrick Boland DO [address] [place] [address] PCP - General Family Medicine 10/29/15 Yesenia Rangel, CHANGE MANAGEMENT SPECIALIST.TOW MATE [address] [place] [address] [facility] 06/03/24 MarilinXochilt, CHANGE MANAGEMENT SPECIALIST.TOW MATE [address] [place] [address] [facility] 06/03/24 Ops Analyst Relationship Specialty Start Date End Date Fredrick Boland DO [address] [place] [address] PCP - General Family Medicine 10/29/15 Yesenia Rangel, CHANGE MANAGEMENT SPECIALIST.TOW MATE [address] [place] [address] [facility] 06/03/24 Xochilt Gaston, CHANGE MANAGEMENT SPECIALIST.TOW MATE [address] [place] [address] [facility] 06/03/24 Ops Analyst Relationship Specialty Start Date End Date Fredrick Boland DO [address] [place] [address] PCP - General Family Medicine 10/29/15 Yesenia Rangel, CHANGE MANAGEMENT SPECIALIST.TOW MATE [address] [place] [address] Chemistry Specialist Family Medicine 06/03/24 Xochilt Gaston, CHANGE MANAGEMENT SPECIALIST.TOW MATE [address] [place] [address] Chemistry Specialist Family [facility] 06/03/24 Ops Analyst Relationship Specialty Start Date End Date Fredrick Boland DO [address] [place] [address] PCP - General Family Medicine 10/29/15 Yesenia Rangel, CHANGE MANAGEMENT SPECIALIST.TOW MATE [address] [place] [address] Chemistry Specialist Family Medicine 06/03/24 Xochilt Gaston, CHANGE MANAGEMENT SPECIALIST.TOW MATE [address] [place] [address] Chemistry Specialist Family [facility] 06/03/24 Ops Analyst Relationship Specialty Start Date End Date Fredrick Boland DO [address] [place] [address] PCP - General Family Medicine 10/29/15 Yesenia Rangel, CHANGE MANAGEMENT SPECIALIST.TOW MATE [address] [place] [address] Chemistry Specialist Family Medicine 06/03/24 Xochilt Gaston, CHANGE MANAGEMENT SPECIALIST.TOW MATE [address] [place] [address] Chemistry Specialist Family [facility] 06/03/24 Ops Analyst Relationship Specialty Start Date End Date Fredrick Boland DO [address] [place] [address] PCP - General Family Medicine 10/29/15 Yesenia Rangel, CHANGE MANAGEMENT SPECIALIST.TOW MATE [address] [address] Chemistry Specialist Family [facility] 06/03/24 Xochilt Gaston, CHANGE MANAGEMENT SPECIALIST.TOW MATE [address] [address] [facility] 06/03/24 Ops Analyst Relationship Specialty Start Date End Date Fredrick Boland DO [address] [address] PCP - General Family Medicine 10/29/15 Yesenia Rangel, CHANGE MANAGEMENT SPECIALIST.TOW MATE [address] [address] [facility] 06/03/24 Xochilt Gaston, CHANGE MANAGEMENT SPECIALIST.TOW MATE [address] [place] [address] [facility] 06/03/24 Ops Analyst Relationship Specialty Start Date End Date Fredrick Boland DO [address] [address] PCP - General Family Medicine 10/29/15 Yesenia Rangel, CHANGE MANAGEMENT SPECIALIST.TOW MATE [address] [place] [address] Chemistry Specialist Family [facility] 06/03/24 Xochilt Gaston, CHANGE MANAGEMENT SPECIALIST.TOW MATE [address] [place] [address] Chemistry Specialist Family [facility] 06/03/24 Ops Analyst Relationship Specialty Start Date End Date Fredrick Boland DO [address] [place] [address] PCP - General Family Medicine 10/29/15 Xochilt Gaston, CHANGE MANAGEMENT SPECIALIST.TOW MATE [address] [place] [address] [facility] 06/03/24 Ops Analyst Relationship Specialty Start Date End Date Fredrick Boland DO [address] [place] [address] PCP - General Family Medicine 10/29/15 Yesenia Rangel, CHANGE MANAGEMENT SPECIALIST.TOW MATE [address] [place] [address] Chemistry Specialist Family [facility] 06/03/24 09/14/24 Xochilt Gaston, CHANGE MANAGEMENT SPECIALIST.TOW MATE [address] [place] [address] [facility] 06/03/24 Ops Analyst Relationship Specialty Start Date End Date Fredrick Boland DO [address] [place] [address] PCP - General Family Medicine 10/29/15 Yesenia Rangel, CHANGE MANAGEMENT SPECIALIST.TOW MATE [address] [place] [address] [facility] 06/03/24 09/14/24 MarilinXochilt, CHANGE MANAGEMENT SPECIALIST.TOW MATE [address] [place], [place] [address] [facility] 06/03/24 Ops Analyst Relationship Specialty Start Date End Date Fredrick Boland DO [address] [place] [address] PCP - General Family Medicine 10/29/15 Xochilt Gaston, CHANGE MANAGEMENT SPECIALIST.TOW MATE [address] [place] [address] [facility] 06/03/24 Maggie Putnam MD [address] [place] [address] Internal Medicine 10/02/24 Ops Analyst Relationship Specialty Start Date End Date Fredrick Boland DO [address] [place] [address] PCP - General Family Medicine 10/29/15 MarilinXochilt, CHANGE MANAGEMENT SPECIALIST.TOW MATE [address] [place] [address] [facility] 06/03/24 Maggie Putnam MD [address] [place] [address] Internal Medicine 10/02/24 Ops Analyst Relationship Specialty Start Date End Date Fredrick Boland DO [address] [place] [address] PCP - General Family Medicine 10/29/15 Marilin Xochilt, CHANGE MANAGEMENT SPECIALIST.TOW MATE [address] [place] [address] Chemistry Specialist Family [facility] 06/03/24 Maggie Putnam MD [address] [place] [address] Internal Medicine 10/02/24 Ops Analyst Relationship Specialty Start Date End Date Fredrick Boland DO [address] [place] [address] PCP - General Family Medicine 10/29/15 [facility] CHANGE MANAGEMENT SPECIALIST.TOW MATE [address] [place] [address] Chemistry Specialist [facility] Medicine 06/03/24 Maggie Putnam MD [address] [place] [address] Internal Medicine 10/02/24 Ops Analyst Relationship Specialty Start Date End Date Fredrick Boland DO [address] [place] [address] PCP - General Family Medicine 10/29/15 [facility] CHANGE MANAGEMENT SPECIALIST.TOW MATE [address] [place] [address] Chemistry Specialist Family Medicine 06/03/24 Maggie Putnam MD [address] [place] [address] Internal Medicine 10/02/24 Ops Analyst Relationship Specialty Start Date End Date Fredrick Boland DO [address] [place] [address] PCP - General Family Medicine 10/29/15 Xochilt Gaston, CHANGE MANAGEMENT SPECIALIST.TOW MATE [address] [place] [address] Chemistry Specialist Family [facility] 06/03/24 Maggie Putnam MD [address] [place] [address] Internal Medicine 10/02/24 ProviderLarry MD Chemistry Specialist 10/12/24 10/26/24 Ops Analyst Relationship Specialty Start Date End Date Fredrick Boland DO [address] [place] [address] PCP - General Family Medicine 10/29/15 Mar[facility]ilt, CHANGE MANAGEMENT SPECIALIST.TOW MATE [address] [place] [address] Chemistry Specialist Family [facility] 06/03/24 Maggie Putnam MD [address] [place] [address] Internal Medicine 10/02/24 Ops Analyst Relationship Specialty Start Date End Date Fredrick Boland DO [address] [place] [address] PCP - General Family Medicine 11/28/24 Xochilt Gaston, CHANGE MANAGEMENT SPECIALIST.TOW MATE [address] [place] [address] Chemistry Specialist Family Medicine 06/03/24 Maggie Putnam MD [address] [place] [address] Internal Medicine 10/02/24 Lee Lou MD [address] [place] [address] Night Coverage Internal Medicine 11/28/24 11/28/24 Ops Analyst Relationship Specialty Start Date End Date Xochilt Gaston, CHANGE MANAGEMENT SPECIALIST.TOW MATE [address] [place] [address] Chemistry Specialist Family Medicine 06/03/24 Maggie Putnam MD [address] [place] [address] Internal Medicine 10/02/24 Ops Analyst Relationship Specialty Start Date End Date Fredrick Boland DO [address] [place] [address] PCP - General Family Medicine 11/28/24 Xochilt Gaston, CHANGE MANAGEMENT SPECIALIST.TOW MATE [address] [place] [address] Chemistry Specialist Family [facility] 06/03/24 Maggie Putnam MD [address] [place] [address] Internal Medicine 10/02/24 Ed Thomas, CHANGE MANAGEMENT SPECIALIST.TOW MATE [address] [place], [place] 360121 Chemistry Specialist Family [facility] 12/10/24 Ops Analyst Relationship Specialty Start Date End Date Fredrick Boland DO [address] [place] [address] PCP - General Family Medicine 11/28/24 Xochilt Gaston, CHANGE MANAGEMENT SPECIALIST.TOW MATE [address] [place], [place] 610701 [facility] 06/03/24 Maggie Putnam MD [address] [place] [address] Internal Medicine 10/02/24 Ed Thomas, CHANGE MANAGEMENT SPECIALIST.TOW MATE [address] [place], [place] 363133 [phone] [facility] 12/10/24 Keesha June [facility] [address] [place], [place] [phone] Transitional Care Pharmacist Pharmacy 12/20/24 03/21/25 Ops Analyst Relationship Specialty Start Date End Date Fredrick Boland DO [address] [place] [address] PCP - General Family Medicine 11/28/24 MarilinXochilt, CHANGE MANAGEMENT SPECIALIST.TOW MATE [address] [place] [address] [facility] 06/03/24 Maggie Putnam MD [address] [place] [address] Internal Medicine 10/02/24 Ed Thomas, CHANGE MANAGEMENT SPECIALIST.TOW MATE [address] [place] [address] [facility] 12/10/24 Mounika Trent [facility] [address] [place] [address] Transitional Care Pharmacist Pharmacy 12/21/24 03/21/25 Ops Analyst Relationship Specialty Start Date End Date Fredrick Boland DO [address] [place] [address] PCP - General Family Medicine 11/28/24 Xochilt Gaston, CHANGE MANAGEMENT SPECIALIST.TOW MATE [address] [place] [address] Chemistry Specialist Family Medicine 06/03/24 Maggie Putnam MD [address] [place] [address] [phone] Internal Medicine 10/02/24 Ed Thomas, CHANGE MANAGEMENT SPECIALIST.TOW MATE [address] [place] [address] Chemistry Specialist Family [facility] 12/10/24 Mounika Trent, [facility] [address] [place] [phone] Transitional Care Pharmacist Pharmacy 12/21/24 03/21/25 Ops Analyst Relationship Specialty Start Date End Date Fredrick Boland DO [address] [place] [address] PCP - General Family Medicine 11/28/24 Xochilt Gaston, CHANGE MANAGEMENT SPECIALIST.TOW MATE [address] [place] [address] Chemistry Specialist Family Medicine 06/03/24 Maggie Putnam MD [address] [place] [address] Internal Medicine 10/02/24 Ed Thomas, CHANGE MANAGEMENT SPECIALIST.TOW MATE [address] [place] [address] Chemistry Specialist Family Medicine 12/10/24 [facility] [address] [place] [address] Transitional Care Pharmacist Pharmacy 12/21/24 03/21/25 Ops Analyst Relationship Specialty Start Date End Date Fredrick Boland DO [address] [place] [address] PCP - General Family Medicine 11/28/24 Xochilt Gaston, CHANGE MANAGEMENT SPECIALIST.TOW MATE [address] [place] [address] Chemistry Specialist Family Medicine 06/03/24 Maggie Putnam MD [address] [place] [address] Internal Medicine 10/02/24 Ed Thomas, CHANGE MANAGEMENT SPECIALIST.TOW MATE [address] [place] [address] Chemistry Specialist Family Medicine 12/10/24 [facility] [address] [place], [place] [phone] Transitional Care Pharmacist Pharmacy 12/21/24 03/21/25 Ops Analyst Relationship Specialty Start Date End Date Fredrick Boland DO [address] [place], [place] 880831 PCP - General Family Medicine 11/28/24 Xochilt Gaston, CHANGE MANAGEMENT SPECIALIST.TOW MATE [address] [place] [address] Chemistry Specialist Family [facility] 06/03/24 Maggie Putnam MD [address] [place] [address] Internal Medicine 10/02/24 Ed Thomas, CHANGE MANAGEMENT SPECIALIST.TOW MATE [address] [place] [address] [facility] 12/10/[address] [address] Transitional Care Pharmacist Pharmacy 12/21/24 03/21/25 Ops Analyst Relationship Specialty Start Date End Date Fredrick Boland DO [address] [place] [address] PCP - General Family Medicine 11/28/24 Xochilt Gaston, CHANGE MANAGEMENT SPECIALIST.TOW MATE [facility] [place] [address] Chemistry Specialist Family [facility] 06/03/24 Maggie Putnam MD [address] [place] [address] Internal Medicine 10/02/24 Ed Thomas, CHANGE MANAGEMENT SPECIALIST.TOW MATE [address] [place] [address] [facility] 12/10/[address] [address] Transitional Care Pharmacist Pharmacy 12/21/24 03/21/25 Ops Analyst Relationship Specialty Start Date End Date Fredrick Boland DO [address] [place] [address] PCP - General Family Medicine 11/28/24 Xochilt Gaston, CHANGE MANAGEMENT SPECIALIST.TOW MATE [address] [place] [address] Chemistry Specialist Family Medicine 06/03/24 Maggie Putnam MD [address] [place] [address] Internal Medicine 10/02/24 Ed Thomas, CHANGE MANAGEMENT SPECIALIST.TOW MATE [address] [place] [address] 326651 Chemistry Specialist Family [facility] 12/10/24 [facility] [address] [place] [phone] Transitional Care Pharmacist Pharmacy 12/21/24 03/21/25 Ops Analyst Relationship Specialty Start Date End Date Fredrick Boland DO [address] [place] [address] PCP - General Family Medicine 11/28/24 Xochilt Gaston, CHANGE MANAGEMENT SPECIALIST.TOW MATE [address] [place] [address] Chemistry Specialist Family Medicine 06/03/24 Maggie Putnam MD [address] [place] [address] Internal Medicine 10/02/24 Ed Thomas, CHANGE MANAGEMENT SPECIALIST.TOW MATE [address] [place], [place] 698141 Chemistry Specialist Family [facility] 12/10/24 [facility] [address] [place] [address] Transitional Care Pharmacist Pharmacy 12/21/24 03/21/25 Ops Analyst Relationship Specialty Start Date End Date Fredrick Boland DO [address] [place] [address] PCP - General Family Medicine 11/28/24 Xochilt Gaston APRN.TOW MATE [address] [place] [address] Chemistry Specialist Family [facility] 06/03/24 Maggie Putnam MD [address] [place] [address] Internal Medicine 10/02/24 Ed Thomas, CHANGE MANAGEMENT SPECIALIST.TOW MATE [address] [place] [address] Chemistry Specialist Family [facility] 12/10/24 [facility] [address] [place] [address] Transitional Care Pharmacist Pharmacy 12/21/24 03/21/25 Ops Analyst Relationship Specialty Start Date End Date Fredrick Boland DO [address] [place] [address] PCP - General Family Medicine 11/28/24 Xochilt Gaston, CHANGE MANAGEMENT SPECIALIST.TOW MATE [address] [place] [address] Chemistry Specialist Family [facility] 06/03/24 Maggie Putnam MD [address] [place] [address] Internal Medicine 10/02/24 Ed Thomas, CHANGE MANAGEMENT SPECIALIST.TOW MATE [address] [place] [address] Chemistry Specialist Family [facility] 12/10/[address] [address] Transitional Care Pharmacist Pharmacy 12/21/24 03/21/25 Ops Analyst Relationship Specialty Start Date End Date Fredrick Boland DO [address] [place] [address] PCP - General Family Medicine 11/28/24 Xochilt Gaston, CHANGE MANAGEMENT SPECIALIST.TOW MATE [address] [place] [address] Chemistry Specialist Family Medicine 06/03/24 Maggie Putnam MD [address] [place] [address] Internal Medicine 10/02/24 Ed Thomas, CHANGE MANAGEMENT SPECIALIST.TOW MATE [address] [place] [address] [facility] Family [facility] 12/10/24 [address] [address] Transitional Care Pharmacist Pharmacy 12/21/24 03/21/25 Ops Analyst Relationship Specialty Start Date End Date Fredrick Boland DO [address] [place] [address] PCP - General Family Medicine 11/28/24 Xochilt Gaston, CHANGE MANAGEMENT SPECIALIST.TOW MATE [address] [place] [address] Chemistry Specialist Family [facility] 06/03/24 Maggie Putnam MD [address] [place] [address] Internal Medicine 10/02/24 Ed Thomas, CHANGE MANAGEMENT SPECIALIST.TOW MATE [address] [place] [address] [facility] 12/10/24 Mounika Trent, [address] [address] Transitional Care Pharmacist Pharmacy 12/21/24 03/21/25 Ops Analyst Relationship Specialty Start Date End Date Fredrick Boland DO [address] [place] [address] PCP - General Family Medicine 11/28/24 Xochilt Gaston, CHANGE MANAGEMENT SPECIALIST.TOW MATE [address] [place] [address] Chemistry Specialist Family [facility] 06/03/24 Maggie Putnam MD [address] [place] [address] Internal Medicine 10/02/24 Ed Thomas, CHANGE MANAGEMENT SPECIALIST.TOW MATE [address] [place], [place] 698831 Chemistry Specialist Family Medicine 12/10/24 Mounika Trent, [facility] [address] [place] [address] Transitional Care Pharmacist Pharmacy 12/21/24 03/21/25 Stephie Montoya MD [address] [place] [address] [phone] [facility] Provider Gastroenterology 01/22/25 Stephie Montoya MD [address] [place] [address] [phone] Home Parenteral Nutrition Provider Gastroenterology 01/22/25 Ops Analyst Relationship Specialty [place] [address] [place] [address] [id number] PCP - General Family Medicine 11/28/24 Xochilt Gaston APRN.TOW MATE [address] [place] [address] 853991 Chemistry Specialist Family Medicine 06/03/24 Maggie Putnam MD [address] [place] [address] Internal Medicine 10/02/24 Ed Thomas, CHANGE MANAGEMENT SPECIALIST.TOW MATE [facility]0 [place] [address] Chemistry Specialist Family Medicine 12/10/24 Mounika Trent, [facility] [address] [place] [address] Transitional Care Pharmacist Pharmacy 12/21/24 03/21/25 [place] [address] [place] [address] [phone] [facility] Provider Gastroenterology 01/22/25 Stephie Montoya MD [address] [place] [address] [phone] Home Parenteral Nutrition Provider Gastroenterology 01/22/25 Ops Analyst Relationship Specialty Start Date End Date Fredrick Boland DO [address] [place] [address] 238191 PCP - General Family Medicine 11/28/24 Xochilt Gaston APRN.TOW MATE [address] [place] [address] Chemistry Specialist Family Medicine 06/03/24 Maggie Putnam MD [address] [place] [address] Internal Medicine 10/02/24 Ed Thomas APRN.TOW MATE [address] [place] [address] Chemistry Specialist Family Medicine 12/10/24 Mounika Trent, [facility] [address] [place] [address] Transitional Care Pharmacist Pharmacy 12/21/24 03/21/25 [place] [address] [place] [address] [phone] [facility] Provider Gastroenterology 01/22/25 Stephie Montoya MD [address] [place] [address] Home Parenteral Nutrition Provider Gastroenterology 01/22/25 Ops Analyst Relationship Specialty Start Date End Date Fredrick Boland DO [address] [place], [place] 301341 PCP - General Family Medicine 11/28/24 Xochilt Gaston APRN.TOW MATE [address] [place] [address] 979871 Chemistry Specialist Family Medicine 06/03/24 Maggie Putnam MD [address] [place] [address] [phone] Internal Medicine 10/02/24 Ed Thomas APRN.TOW MATE [address] [place] [address] 412151 Chemistry Specialist Family Medicine 12/10/24 [facility] [address] [place] [address] Transitional Care Pharmacist Pharmacy 12/21/24 03/21/25 Stephie Montoya MD [address] [place] [address] [facility] Provider Gastroenterology 01/22/25 Stephie Montoya MD [address] [place] [address] Home Parenteral Nutrition Provider Gastroenterology 01/22/25 Ops Analyst Relationship Specialty Start Date End Date Fredrick Boland DO [address] [place] [address] PCP - General Family Medicine 11/28/24 Xochilt Gaston APRN.TOW MATE [address] [place], [place] 741061 Chemistry Specialist Family Medicine 06/03/24 Maggie Putnam MD [address] [place], [place] 105074 Internal Medicine 10/02/24 Ed Thomas APRN.TOW MATE [address] [place] [address] 526561 Chemistry Specialist Family [facility] 12/10/24 [facility] [address] [place] [phone] Transitional Care Pharmacist Pharmacy 12/21/24 03/21/25 Stephie Montoya MD [address] [place] [address] [facility] Provider Gastroenterology 01/22/25 Stephie Montoya MD [address] [place] [address] Home Parenteral Nutrition Provider Gastroenterology 01/22/25 Ops Analyst Relationship Specialty Start Date End Date Fredrick Boland DO [address] [place] [address] PCP - General Family Medicine 11/28/24 Xochilt Gaston APRN.TOW MATE [address] [place] [address] Chemistry Specialist Family [facility] 06/03/24 Maggie Putnam MD [address] [place] [address] Internal Medicine 10/02/24 Ed Thomas, CHANGE MANAGEMENT SPECIALIST.TOW MATE [address] [place] [address] Chemistry Specialist [facility] 12/10/24 [facility] [address] [place] [address] Transitional Care Pharmacist Pharmacy 12/21/24 03/21/25 Stephie Montoya MD [address] [place] [address] [facility] Provider Gastroenterology 01/22/25 Stephie Montoya MD [address] [place], [place] [phone] Home Parenteral Nutrition Provider Gastroenterology 01/22/25 Ops Analyst Relationship Specialty Start Date End Date Fredrick Boland DO [address] [place] [address] PCP - General Family Medicine 11/28/24 Xochilt Gaston CHANGE MANAGEMENT SPECIALIST.TOW MATE [address] [place], [place] 664651 Chemistry Specialist Family [facility] 06/03/24 Maggie Putnam MD [address] [place] [address] Internal Medicine 10/02/24 Ed Thomas, CHANGE MANAGEMENT SPECIALIST.TOW MATE [address] [place], [place] 595421 Chemistry Specialist Family [facility] 12/10/24 Mouniak Trent, [facility] [address] [place] [address] Transitional Care Pharmacist Pharmacy 12/21/24 03/21/25 Stephie Montoya MD [address] [place], [place] [phone] [facility] Provider Gastroenterology 01/22/25 Stephie Montoya MD [address] [place], [place] [phone] Home Parenteral Nutrition Provider Gastroenterology 01/22/25 Ops Analyst Relationship Specialty Start Date End Date Fredrick Boland DO [address] [place], [place] [id number] PCP - General Family Medicine 11/28/24 Xochilt Gaston APRN.TOW MATE [address] [place], [place] 336441 Chemistry Specialist Family Medicine 06/03/24 Maggie Putnam MD [address] [place] [address] Internal Medicine 10/02/24 Ed Thomas, CHANGE MANAGEMENT SPECIALIST.TOW MATE [address] [place] [address] Chemistry Specialist Family [facility] 12/10/24 Mounika Trent [facility] [address] [place] [address] Transitional Care Pharmacist Pharmacy 12/21/24 03/21/25 Stephie Montoya MD [address] [place] [address] [facility] Provider Gastroenterology 01/22/25 Stephie Montoya MD [address] [place], [place] [phone] Home Parenteral Nutrition Provider Gastroenterology 01/22/25 Ops Analyst Relationship Specialty Start Date End Date Fredrick Boland DO [address] [place] [address] [phone] PCP - General Family Medicine 11/28/24 Xochilt Gaston, KAIN.TOW MATE [address] [place] [address] Chemistry Specialist Family Medicine 06/03/24 Maggie Putnam MD [address] [place] [address] Internal Medicine 10/02/24 Ed Thomas CHANGE MANAGEMENT SPECIALIST.TOW MATE [address] [place] [address] Chemistry Specialist Family Medicine 12/10/24 Mounika Trent, [facility] [address] [place], [place] [phone] Transitional Care Pharmacist Pharmacy 12/21/24 03/21/25 Stephie Montoya MD [address] [place] [address] [facility] Gastroenterology 01/22/25 Stephie Montoya MD [address] [place] [phone] Home Parenteral Nutrition Provider Gastroenterology 01/22/25 Ops Analyst Relationship Specialty Start Date End Date Fredrick Boland DO [address] [place], [place] 311561 PCP - General Family Medicine 11/28/24 Xochilt Gaston APRN.TOW MATE [address] [place] [address] Chemistry Specialist Family Medicine 06/03/24 Maggie Putnam MD [address] [place] [address] Internal Medicine 10/02/24 Ed Thomas APRN.TOW MATE [address] [place] [address] Chemistry Specialist Family Medicine 12/10/24 Mounika Trent, [facility] [address] [place] [address] Transitional Care Pharmacist Pharmacy 12/21/24 03/21/25 Stephie Montoya MD [address] [place] [address] [facility] Provider Gastroenterology 01/22/25 Stephie Montoya MD [address] [place] [address] Home Parenteral Nutrition Provider Gastroenterology [...] BE BASED ON THE PRIMARY CLINICAL RECORDS. [facility] [place], [facility]. provides no warranty or guarantee of the accuracy or completeness of information in this document."
[2025-02-19] MEDS: HYDROmorphone 0.5 MG/0.5 ML SYRINGE IV (23:39)
[2025-02-19 23:41] LABS: Ferritin 47 ng/mL (22-378)
[2025-02-20] VITALS (7 sets, daily range): BP systolic 100–134; BP diastolic 65–87; PULSE 76–94; RESP 14–16; TEMP 36.2–36.8; O2SAT 96–100; BMI 29.6
[2025-02-20 00:09] LABS: FOLATES,SERUM (FOLIC ACID) 13.60 ng/mL (4.60-34.80)
[2025-02-20] MEDS: Potassium Chloride 10mEq/100mL 10 MEQ/100 ML IV.SOLN. 100 MEQ IV BOLUS ×9 (00:17→18:31)
[2025-02-20 00:27] LABS: Iron 68 ug/dL (50-170); Iron Binding Capacity,Total 299 ug/dL (250-450); Iron Binding Capacity,Unsat 231 ug/dL (228-428)
[2025-02-20 01:17] LABS: Vitamin B12 471 pg/mL (180-914)
[2025-02-20] MEDS: Lactated Ringers 1,000 ML 125 ML IV (02:35)
[2025-02-20] MEDS: Magnesium Sulfate 4gm/100mL 4 GM/100 ML IV.SOLN. IV (02:37)
[2025-02-20] MEDS: 0.9% Saline Lock 10 ML Syringe IV ×3 (02:38→16:45)
[2025-02-20] MEDS: proMETHazine 25 MG/ML Syringe IM (02:50)
[2025-02-20] MEDS: HYDROmorphone 0.5 MG/0.5 ML SYRINGE IV ×5 (03:03→21:20)
[2025-02-20 05:54] LABS: Hematocrit 35.1 % (37-47); Hemoglobin 11.7 g/dL (12.0-15.0); Immature Granulocytes Count 0.020 X10^3/uL (0.0-0.0); Mean Corp Hgb Conc 33.3 g/dL (32-36); Mean Corpuscular Volume 81.3 fL (81-99); Mean Platelet Vol. 9.3 fl (6.2-12.0); NRBC Flagged by Analyzer 0 % (0-5); Platelet Count 340 K/mm3 (150-450); RBC Distribution Width CV 14.3 % (11.6-14.6); RBC Distribution Width SD 42.0 fl (35.1-43.9); Red Blood Count 4.32 M/mm3 (4.2-5.4); White Blood Count 7.4 K/mm3 (4.4-11.0)
[2025-02-20 06:05] LABS: Prothrombin Time (Protime)PT. 18.8 SECONDS (11.7-14.9)
[2025-02-20 06:22] LABS: Magnesium 2.0 mg/dL (1.5-2.2)
[2025-02-20 07:36] LABS: AST(SGOT) 288 U/L (<=31); Alanine Aminotransfer ALT/SGPT 129 U/L (<=34); Albumin, Serum 3.0 g/dL (3.5-5.0); Alkaline Phosphatase 154 U/L (35-104); Anion Gap 13 (5-15); BUN 3 mg/dL (4-19); BUN/Creat Ratio 3.5 RATIO (10-20); Calcium,Total 7.3 mg/dL (7.6-11.0); Carbon Dioxide 20.7 mmol/L (21.0-32.0); Chloride 109 mmol/L (98-108); Estimated Creatinine Clearance 99.18 ml/min (50-250); Globulin 2.7 g/dL (2.2-4.2); Glucose 100 mg/dL (70-99); Potassium 2.1 mmol/L (3.3-5.1)
[2025-02-20] MEDS: Potassium Chloride Oral Tablet 20 MEQ PO (09:39)
[2025-02-20] MEDS: Potassium Chloride Oral Tablet 20 MEQ 40 MEQ PO (09:40)
--- NOTE | 2025-02-20 10:15 | CASEMGMT ---
RN?CM?ASSESSMENT ? RN?CM?to room to meet with patient for initial transition planning/care coordination?assessment.?RN?CM?introduced self and role at [facility].? Pt voices understanding and consents to?assessment?at this time.? Pt resting in bed in no distress at this time.? Pt is A/O at this time and answers all questions appropriately.?? Care providers, pharmacy, and demographics verified/updated at this time. ? Strata: 2 PCP: Dr Boland Specialists: Dr Fonseca-jig operator @ [facility]. Pt goes weekly on Preferred Pharmacy: [facility], [place] Insurance: [employer] Prescription Benefit:?yes LNOK: Parents, Mary & Getachew. Living Arrangements: Pt lives w/her parents in a 2-story home w/basement and one step to enter. [employer]. Independent w/ADL's and IADL's @ baseline. Wound Care: Pt changes the wound to her left heel daily and plans to continue to do this @ discharge. She states she has sufficient supply of dressing supplies. Transportation:?Pt states drives self and states no transportation concerns at this time.?Her father can assist w/transportation, if needed. DME: Pt does not currently use DME, but does have a walker and cane available, if needed. She states she is to be NWB to Lt heel and states to keep the pressure off of her Lt heel when walking that she just walks on the side of her foot. HHC/SNF: [facility]x [facility]. No hx of HHC or OP therapy. ? Discussed discharge planning. Per nursing handoff, pt so weak she was unable to get up to [facility]. She is aware therapy will be in to work w/her and make recommendations. Pt states she does not want to go to a SNF & wishes to return to her parents home and states has no concerns with going home at time of discharge. Pt's mother uses a walker @ baseline and would not be able to physically assist pt, but pt states her father would be able to, if needed. She declines wanting any HHC or OP therapy. Pt was made aware, if she changes her mind after returning home, to discuss this w/her PCP. She voices understanding. CM?to follow for any discharge planning/needs.? Pt voices no further concerns/needs at this time.? Advised pt to ask for?CM?if any further questions/concerns/needs arise.? Voices understanding. ? Pt Plan: Home w/parents. She declines wanting HHC or OP therapy at this time. DC Plan: TBD, pending PT/OT evals. ? Julissa BSN?RN?CM ? ?
--- NOTE | 2025-02-20 11:00 | PN.HOSP_ITS ---
Subjective Subjective No issues overnight, renal functions at baseline however potassium still remains very low Objective Data Objective Data Vital Signs: Vital Signs Temp Pulse Resp BP Pulse Ox O2 Del Method 98.1 F 94 14 113/84 H 96 Room Air 02/20/25 09:37 02/20/25 09:37 02/20/25 09:37 02/20/25 09:37 02/20/25 09:37 02/20/25 09:37 Oxygen Delivery Method Room Air Weight: 189 lb 2.506 oz Body Mass Index (BMI) 29.6 Intake & Output: Intake and Output for Last 24 Hours 02/19/25 02/20/25 02/21/25 03:59 03:59 03:59 Intake Total 2400 / 2400 900 / 900 Output Total 1500 / 1500 Balance 2400 / 2400 -600 / -600 Lab / Micro Data 02/20/25 05:09 02/20/25 05:09 Labs: Laboratory Results - last 24 hr 02/19/25 18:00: WBC 9.5, RBC 4.76, Hgb 13.0, Hct 38.8, MCV 81.5, MCH 27.3, MCHC 33.5, RDW Std Deviation 42.4, RDW Coeff of Chris 14.3, Plt Count 365, MPV 9.1, Immature Gran % (Auto) 0.300, Neut % (Auto) 64.0, Lymph % (Auto) 26.5, [place] % (Auto) 7.3, Eos % (Auto) 1.4, Baso % (Auto) 0.5, Absolute Neuts (auto) 6.1, Absolute Lymphs (auto) 2.51, Nucleated RBC % 0, Sodium 142, Potassium 2.1 L*, Chloride 102, Carbon Dioxide 24.7, Anion Gap 15, BUN 4, Creatinine 1.00, Estim Creat Clear Calc 81.37, Est GFR (MDRD) Non-Af 73, BUN/Creatinine Ratio 3.9 L, G lucose 106 H, Lactic Acid 2.3 H*, Calcium 7.2 L, Magnesium 0.8 L*, Iron 68, TIBC 299, Iron Saturation 23.0, Unsaturated IBC 231, Ferritin 47, Total Bilirubin 0.70, AST 119 H, ALT 66 H, Alkaline Phosphatase 160 H, Total Creatine Kinase 700 H, Total Protein 6.7, Albumin 3.3 L, Globulin 3.4, Albumin/Globulin Ratio 1.0, L ipase 12 L, Vitamin B12 471, Serum Folate 13.60, TSH 2.560, Serum , Qual NEGATIVE 02/19/25 18:03: PT 17.9 H, INR 1.4, APTT 30.6 02/19/25 20:00: Urine Color Yellow, Urine Clarity Clear, Urine pH 7.0, Ur Specific [place] 1.005, Urine Protein 30 H, Urine Glucose (UA) Normal, Urine Ketones Negative, Urine Occult Blood Negative, Urine Nitrite Negative, Urine Bilirubin Negative, Urine Urobilinogen Normal, Ur Leukocyte Esterase Negative, Urine RBC 0 SEEN, Urine WBC 0-5 SEEN, Ur Squamous Epith Cells 0-5 SEEN, Urine Bacteria 0 SEEN, Urine Mucus 0 SEEN, Urine Opiates Screen NEGATIVE, U Buprenorphine Qual NEGATIVE, Ur Oxycodone Screen NEGATIVE, Urine Methadone Screen NEGATIVE, Urine Fentanyl Screen NEGATIVE, Ur Barbiturates Screen NEGATIVE, Ur Phencyclidine Scrn NEGATIVE, Ur Amphetamines Screen NEGATIVE, U Benzodiazepines Scrn PRESUMPTIVE POSITIVE, Urine Cocaine Screen NEGATIVE, U Cannabinoids Screen NEGATIVE 02/19/25 23:20: Lactic Acid 1.4 02/20/25 05:09: WBC 7.4, RBC 4.32, Hgb 11.7 L, Hct 35.1 L, MCV 81.3, MCH 27.1, MCHC 33.3, RDW Std Deviation 42.0, RDW Coeff of Chris 14.3, Plt Count 340, MPV 9.3, Immature Gran % (Auto) 0.300, Neut % (Auto) 64.8, Lymph % (Auto) 26.4, [place] % (Auto) 5.9, Eos % (Auto) 2.2, Baso % (Auto) 0.4, Absolute Neuts (auto) 4.8, Absolute Lymphs (auto) 1.96, Nucleated RBC % 0, PT 18.8 H, INR 1.5, Sodium 143, Potassium 2.1 L*, Chloride 109 H, Carbon Dioxide 20.7 L, Anion Gap 13, BUN 3 L, Creatinine 0.84, Estim Creat Clear Calc 99.18, Est GFR (MDRD) Non-Af 90, B UN/Creatinine Ratio 3.5 L, Glucose 100 H, Calcium 7.3 L, Phosphorus 3.6, Magnesium 2.0, Total Bilirubin 0.68, AST 288 H, ALT 129 H, Alkaline Phosphatase 154 H, Total Protein 5.7 L, Albumin 3.0 L, Globulin 2.7, Albumin/Globulin Ratio 1.1 Radiography Diagnostic Testing: Radiology Impression Abdomen/Pelvis CTA 02/19/25 18:20 IMPRESSION: *Patent abdominal aorta and major visceral branches, as well as iliac and visualized lower extremity arterial runoff vessels. No evidence of vascular occlusion or aneurysm. *Hypodense liver, suspicious for hepatic steatosis. *Status post cholecystectomy and prior colon resection. *Dilated small bowel loops which may represent ileus versus obstruction; correlate clinically. *Small fat-containing umbilical hernia. *Midline abdominal wall surgical scar with mild soft tissue fat stranding, likely postsurgical change. Reading Location: [facility] Physical Exam Narrative General: Alert, Oriented x3, Cooperative, No apparent distress HEENT: Atraumatic, PERRLA, EOMI, Normocephalic Oral: Moist Mucosa Neck: Supple, No JVD Lungs: Clear to auscultation, Normal air movement, No rhonchi, No wheeze, No rales Cardiovascular: Regular rate, Regular Rhythm, Normal S1, Normal S2, No murmurs Abdomen: Soft, Non Tender, Non-Distended, No Hepato-splenomegaly Extremities: No edema, Capillary Refill Less than 3 Seconds Skin: Chronic lower extremity wounds and dressings Musculoskeletal: No Tenderness to Palpation of Joints or Extremities Neurological: No focal neurological deficits, moves all extremities Psych/Mental Status: Flat Assessment & Plan Assessment/Plan (1) Acidosis, lactic: (2) Diarrhea: QUALIFIERS: Diarrhea type: presumed infectious Qualified Code(s): R19.7 - Diarrhea, unspecified (3) Transaminitis: PLAN: Plan 1. 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 Continue with gentle IV fluids, renal function is at baseline ? Stool studies are pending ? Continue with p.o. and IV replacement of her potassium, ? Will obtain an ionized calcium level as her calcium sample this morning was 7.3 ? Magnesium and phosphorus are normal however potassium is still very low ? Sodium levels also normal ? Continue with Coumadin, will monitor PT/INR 2. 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 She still has a gangrenous toe on her right foot that is being monitored as an outpatient 3. Bipolar disorder ?Stable ? Continue with her home medications 4. GERD ? Stable ? Continue with PPI DVT: Coumadin Charges/Coding Visit Charges Inpatient E&M: 25666 Subs Hosp L2
--- NOTE | 2025-02-20 12:17 | WOUNDNOTE ---
wound photo: left medial heel
[2025-02-20 12:40] LABS: Ionized Calcium Order ORDER TUBE
[2025-02-20] MEDS: Warfarin (PBKC) 2.5 MG Tablet PO (16:03)
[2025-02-20] MEDS: Juven (unflavored) Packet 1 PACKET PO (16:03)
[2025-02-21] MEDS: HYDROmorphone 0.5 MG/0.5 ML SYRINGE IV ×5 (02:34→21:25)
[2025-02-21] MEDS: 0.9% Saline Lock 10 ML Syringe IV ×5 (02:35→21:26)
[2025-02-21 02:43] VITALS: BP 98/70; PULSE 85; RESP 16; TEMP 36.6; O2SAT 99
[2025-02-21 03:37] VITALS: BMI 29.0
[2025-02-21 04:21] LABS: Hematocrit 32.9 % (37-47); Hemoglobin 11.0 g/dL (12.0-15.0); Immature Granulocytes Count 0.010 X10^3/uL (0.0-0.0); Mean Corp Hgb Conc 33.4 g/dL (32-36); Mean Corpuscular Volume 82.0 fL (81-99); Mean Platelet Vol. 9.5 fl (6.2-12.0); NRBC Flagged by Analyzer 0 % (0-5); Platelet Count 322 K/mm3 (150-450); RBC Distribution Width CV 14.3 % (11.6-14.6); RBC Distribution Width SD 42.4 fl (35.1-43.9); Red Blood Count 4.01 M/mm3 (4.2-5.4); White Blood Count 5.5 K/mm3 (4.4-11.0)
[2025-02-21 04:29] LABS: Prothrombin Time (Protime)PT. 18.9 SECONDS (11.7-14.9)
[2025-02-21 05:07] LABS: HEPATITIS B SURFACE AG Negative (Negative); Hep C Antibodies Non Reactive (Non Reactive)
[2025-02-21 05:08] LABS: AST(SGOT) 159 U/L (<=31); Alanine Aminotransfer ALT/SGPT 138 U/L (<=34); Albumin, Serum 2.6 g/dL (3.5-5.0); Alkaline Phosphatase 166 U/L (35-104); Anion Gap 11 (5-15); BUN 3 mg/dL (4-19); BUN/Creat Ratio 3.1 RATIO (10-20); Calcium,Total 7.3 mg/dL (7.6-11.0); Carbon Dioxide 24.5 mmol/L (21.0-32.0); Chloride 106 mmol/L (98-108); Estimated Creatinine Clearance 103.20 ml/min (50-250); Globulin 2.8 g/dL (2.2-4.2); Glucose 81 mg/dL (70-99)
[2025-02-21 05:10] LABS: Potassium 2.1 mmol/L (3.3-5.1)
[2025-02-21] MEDS: KCL 40mEq in 0.9% NS 40 MEQ/1,000 ML IV.SOLN 100 MEQ IV (05:37)
[2025-02-21] MEDS: Potassium Chloride Oral Soln 20 MEQ/15 ML UDC 60 MEQ PO ×2 (05:37→09:06)
[2025-02-21 07:33] LABS: Magnesium 1.8 mg/dL (1.5-2.2)
[2025-02-21 09:03] VITALS: BP 101/59; PULSE 89; RESP 16; TEMP 37; O2SAT 93
[2025-02-21] MEDS: Potassium Chloride Oral Tablet 20 MEQ 40 MEQ PO (09:06)
[2025-02-21] MEDS: Juven (unflavored) Packet 1 PACKET PO ×2 (09:06→17:12)
--- NOTE | 2025-02-21 09:13 | PCM.PN.HOSP ---
Subjective Subjective No change from yesterday, potassium is still very low I have notified her laboratory to evaluate the possibility that these are incorrect labs Objective Data Objective Data Vital Signs: Vital Signs Temp Pulse Resp BP Pulse Ox O2 Del Method 98.6 F 89 16 101/59 L 93 Room Air 02/21/25 09:03 02/21/25 09:03 02/21/25 09:03 02/21/25 09:03 02/21/25 09:03 02/21/25 09:03 Oxygen Delivery Method Room Air Weight: 185 lb 10.067 oz Body Mass Index (BMI) 29.0 Intake & Output: Intake and Output for Last 24 Hours 02/20/25 02/21/25 02/22/25 03:59 03:59 03:59 Intake Total 2400 / 2400 3800 / 3800 240 / 240 Output Total 3500 / 3500 850 / 850 Balance 2400 / 2400 300 / 300 -610 / -610 Lab / Micro Data 02/21/25 03:57 02/21/25 03:57 Labs: Laboratory Results - last 24 hr 02/20/25 05:09: Hepatitis A IgM Ab Negative, Hep Bs Antigen Negative, Hep B Core IgM Ab Negative, Hepatitis C Ab (EIA) Non Reactive, Hep C Ab Comment Comment 02/20/25 11:30: Ionized Calcium 1.06 L 02/21/25 03:57: WBC 5.5, RBC 4.01 L, Hgb 11.0 L, Hct 32.9 L, MCV 82.0, MCH 27.4, MCHC 33.4, RDW Std Deviation 42.4, RDW Coeff of Chris 14.3, Plt Count 322, MPV 9.5, Immature Gran % (Auto) 0.200, Neut % (Auto) 64.2, Lymph % (Auto) 25.9, [place] % (Auto) 7.5, Eos % (Auto) 1.8, Baso % (Auto) 0.4, Absolute Neuts (auto) 3.5, Absolute Lymphs (auto) 1.41, Nucleated RBC % 0, PT 18.9 H, INR 1.6, Sodium 142, Potassium 2.1 L*, Chloride 106, Carbon Dioxide 24.5, Anion Gap 11, BUN 3 L, Creatinine 0.80, Estim Creat Clear Calc 103.20, Est GFR (MDRD) Non-Af 94, BUN/Creatinine Ratio 3.1 L, Glucose 81, Calcium 7.3 L, Phosphorus 3.7, Magnesium 1.8, Total Bilirubin 0.90, AST 159 H, ALT 138 H, Alkaline Phosphatase 166 H, Total Protein 5.4 L, Albumin 2.6 L, Globulin 2.8, Albumin/Globulin Ratio 0.9 Micro: Microbiology 02/19/25 18:56 Stool Stool Lactoferrin - Final 02/19/25 18:56 Stool Enteric Bacteriology - Final 02/19/25 18:56 Stool Clostridioides difficile (PCR) - Final 02/19/25 18:56 Stool Stool Occult Blood (AUDRA) - Final Physical Exam Narrative General: Alert, Oriented x3, Cooperative, No apparent distress HEENT: Atraumatic, PERRLA, EOMI, Normocephalic Oral: Moist Mucosa Neck: Supple, No JVD Lungs: Clear to auscultation, Normal air movement, No rhonchi, No wheeze, No rales Cardiovascular: Regular rate, Regular Rhythm, Normal S1, Normal S2, No murmurs Abdomen: Soft, Non Tender, Non-Distended, No Hepato-splenomegaly Extremities: No edema, Capillary Refill Less than 3 Seconds Skin: Chronic lower extremity wounds and dressings Musculoskeletal: No Tenderness to Palpation of Joints or Extremities Neurological: No focal neurological deficits, moves all extremities Psych/Mental Status: Flat Assessment & Plan Assessment/Plan (1) Acidosis, lactic: (2) Diarrhea: QUALIFIERS: Diarrhea type: presumed infectious Qualified Code(s): R19.7 - Diarrhea, unspecified (3) Transaminitis: PLAN: Plan 1. 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 Continue with gentle IV fluids, renal function is at baseline ? Stool studies are all negative, will will reinitiate Imodium ? Continue with p.o. and IV replacement of her potassium, ?Will replace calcium as her ionized calcium level was low ?Potassium is still 2.1, given the amount that she is been replaced that she would be at the same level she was yesterday and the day before will have laboratory check on their equipment ? Sodium levels also normal ? Continue with Coumadin, will monitor PT/INR 2. 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 Bipolar disorder ?Stable ? Continue with her home medications 4. GERD ? Stable ? Continue with PPI DVT: Coumadin Charges/Coding Visit Charges Inpatient E&M: 15688 Subs Hosp L2
[2025-02-21 12:18] LABS: Anion Gap 11 (5-15); Calcium,Total 7.5 mg/dL (7.6-11.0); Carbon Dioxide 24.7 mmol/L (21.0-32.0); Chloride 108 mmol/L (98-108); Estimated Creatinine Clearance 105.85 ml/min (50-250); Glucose 92 mg/dL (70-99)
[2025-02-21] MEDS: Calcium Gluconate IV 1 GM in 0.9% Normal Saline (100mL Bag) 100 ML IV (12:46)
[2025-02-21 12:50] LABS: BUN 2 mg/dL (4-19); BUN/Creat Ratio 3.0 RATIO (10-20); Potassium 2.5 mmol/L (3.3-5.1)
[2025-02-21 17:09] VITALS: BP 92/69; PULSE 84; RESP 17; TEMP 37.3; O2SAT 99
[2025-02-21] MEDS: Warfarin (PBKC) 2.5 MG Tablet PO (17:12)
[2025-02-21 21:23] VITALS: BP 119/79; PULSE 82; RESP 18; TEMP 36.5; O2SAT 99
[2025-02-22 02:30] VITALS: BP 108/69; PULSE 70; RESP 16; TEMP 36.4; O2SAT 97
[2025-02-22] MEDS: HYDROmorphone 0.5 MG/0.5 ML SYRINGE IV ×4 (02:33→19:34)
[2025-02-22] MEDS: 0.9% Saline Lock 10 ML Syringe IV ×4 (02:34→19:41)
[2025-02-22 03:14] VITALS: BMI 28.8
[2025-02-22 05:54] LABS: Hematocrit 31.7 % (37-47); Hemoglobin 10.5 g/dL (12.0-15.0); Immature Granulocytes Count 0.010 X10^3/uL (0.0-0.0); Mean Corp Hgb Conc 33.1 g/dL (32-36); Mean Corpuscular Volume 81.9 fL (81-99); Mean Platelet Vol. 9.3 fl (6.2-12.0); NRBC Flagged by Analyzer 0 % (0-5); Platelet Count 315 K/mm3 (150-450); RBC Distribution Width CV 14.6 % (11.6-14.6); RBC Distribution Width SD 43.3 fl (35.1-43.9); Red Blood Count 3.87 M/mm3 (4.2-5.4); White Blood Count 5.4 K/mm3 (4.4-11.0)
[2025-02-22 06:09] LABS: Prothrombin Time (Protime)PT. 21.2 SECONDS (11.7-14.9)
[2025-02-22 06:37] LABS: Anion Gap 10 (5-15); BUN < 2 mg/dL (4-19); BUN/Creat Ratio UNABLE TO CALCULATE RATIO (10-20); Calcium,Total 7.6 mg/dL (7.6-11.0); Carbon Dioxide 25.4 mmol/L (21.0-32.0); Chloride 105 mmol/L (98-108); Estimated Creatinine Clearance 112.52 ml/min (50-250); Glucose 121 mg/dL (70-99); Potassium 2.2 mmol/L (3.3-5.1)
[2025-02-22] MEDS: Potassium Chloride Oral Tablet 20 MEQ 60 MEQ PO ×2 (07:41→09:44)
--- NOTE | 2025-02-22 09:15 | PN.HOSP_ITS ---
Subjective Subjective Stool studies are negative, will start her on Lomotil to minimize diarrhea and potassium losses Objective Data Objective Data Vital Signs: Vital Signs Temp Pulse Resp BP Pulse Ox O2 Del Method 97.5 F L 70 16 108/69 97 Room Air 02/22/25 02:30 02/22/25 02:30 02/22/25 02:30 02/22/25 02:30 02/22/25 02:30 02/22/25 02:30 Oxygen Delivery Method Room Air Weight: 183 lb 10.321 oz Body Mass Index (BMI) 28.8 Intake & Output: Intake and Output for Last 24 Hours 02/21/25 02/22/25 02/23/25 03:59 03:59 03:59 Intake Total 3800 / 3800 1350 / 1350 Output Total 3500 / 3500 2150 / 2150 Balance 300 / 300 -800 / -800 Lab / Micro Data 02/22/25 04:45 02/22/25 04:45 Labs: Laboratory Results - last 24 hr 02/21/25 11:05: Sodium 143, Potassium 2.5 L*, Chloride 108, Carbon Dioxide 24.7, Anion Gap 11, BUN 2 L, Creatinine 0.78, Estim Creat Clear Calc 105.85, Est GFR (MDRD) Non-Af 98, BUN/Creatinine Ratio 3.0 L, Glucose 92, Calcium 7.5 L 02/22/25 04:45: WBC 5.4, RBC 3.87 L, Hgb 10.5 L, Hct 31.7 L, MCV 81.9, MCH 27.1, MCHC 33.1, RDW Std Deviation 43.3, RDW Coeff of Chris 14.6, Plt Count 315, MPV 9.3, Immature Gran % (Auto) 0.200, Neut % (Auto) 63.9, Lymph % (Auto) 24.4, [place] % (Auto) 7.8, Eos % (Auto) 3.1, Baso % (Auto) 0.6, Absolute Neuts (auto) 3.5, Absolute Lymphs (auto) 1.32, Nucleated RBC % 0, PT 21.2 H, INR 1.8, Sodium 141, Potassium 2.2 L*, Chloride 105, Carbon Dioxide 25.4, Anion Gap 10, BUN < 2 L, Creatinine 0.73, Estim Creat Clear Calc 112.52, Est GFR (MDRD) Non-Af 106, B UN/Creatinine Ratio UNABLE TO CALCULATE L, Glucose 121 H, Calcium 7.6 Micro: Microbiology 02/19/25 18:56 Stool Stool Lactoferrin - Final 02/19/25 18:56 Stool Enteric Bacteriology - Final 02/19/25 18:56 Stool Clostridioides difficile (PCR) - Final 02/19/25 18:56 Stool Stool Occult Blood (AUDRA) - Final Physical Exam Narrative General: Alert, Oriented x3, Cooperative, No apparent distress HEENT: Atraumatic, PERRLA, EOMI, Normocephalic Oral: Moist Mucosa Neck: Supple, No JVD Lungs: Clear to auscultation, Normal air movement, No rhonchi, No wheeze, No rales Cardiovascular: Regular rate, Regular Rhythm, Normal S1, Normal S2, No murmurs Abdomen: Soft, Non Tender, Non-Distended, No Hepato-splenomegaly Extremities: No edema, Capillary Refill Less than 3 Seconds Skin: Chronic lower extremity wounds and dressings Musculoskeletal: No Tenderness to Palpation of Joints or Extremities Neurological: No focal neurological deficits, moves all extremities Psych/Mental Status: Flat Assessment & Plan Assessment/Plan (1) Acidosis, lactic: (2) Diarrhea: QUALIFIERS: Diarrhea type: presumed infectious Qualified Code(s): R19.7 - Diarrhea, unspecified (3) Transaminitis: PLAN: Plan 1. 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 Continue with gentle IV fluids, renal function is at baseline ? Stool studies are all negative, will will reinitiate Imodium ? Continue with p.o. and IV replacement of her potassium, advance her diet to a regular diet ?Potassium is still 2.2 ? Sodium levels also normal ? Continue with Coumadin, will monitor PT/INR 2. 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 Bipolar disorder ?Stable ? Continue with her home medications 4. GERD ? Stable ? Continue with PPI DVT: Coumadin Charges/Coding Visit Charges Inpatient E&M: 15472 Subs Hosp L2
[2025-02-22 09:37] VITALS: BP 100/73; PULSE 102; RESP 16; TEMP 37.1; O2SAT 99
[2025-02-22] MEDS: Juven (unflavored) Packet 1 PACKET PO ×2 (09:37→16:23)
[2025-02-22] MEDS: Potassium Chloride Oral Tablet 20 MEQ 40 MEQ PO (09:38)
[2025-02-22] MEDS: Diphenoxylate/Atrop 1 Tablet PO ×2 (09:44→19:40)
[2025-02-22 14:07] LABS: Anion Gap 11 (5-15); BUN < 2 mg/dL (4-19); BUN/Creat Ratio UNABLE TO CALCULATE RATIO (10-20); Calcium,Total 7.9 mg/dL (7.6-11.0); Carbon Dioxide 25.1 mmol/L (21.0-32.0); Chloride 109 mmol/L (98-108); Estimated Creatinine Clearance 106.68 ml/min (50-250); Glucose 143 mg/dL (70-99); Potassium 2.9 mmol/L (3.3-5.1)
[2025-02-22 14:36] VITALS: BP 112/66; PULSE 86; RESP 16; O2SAT 100
[2025-02-22 16:21] VITALS: BP 107/83; PULSE 91; RESP 16; TEMP 36.5; O2SAT 98
[2025-02-22] MEDS: Warfarin (PBKC) 2.5 MG Tablet PO (16:23)
[2025-02-22 19:30] VITALS: BP 116/79; PULSE 78; RESP 16; TEMP 36.9; O2SAT 100
[2025-02-23 01:10] VITALS: BP 104/70; PULSE 69; RESP 14; TEMP 36.7; O2SAT 97
[2025-02-23] MEDS: HYDROmorphone 0.5 MG/0.5 ML SYRINGE IV ×3 (01:10→09:21)
[2025-02-23] MEDS: 0.9% Saline Lock 10 ML Syringe IV ×3 (01:10→09:21)
--- NOTE | 2025-02-23 01:27 | NURSING ---
Verbal report from Rica Cox RN. This RN assuming care at this time.
[2025-02-23 05:17] LABS: Hematocrit 31.3 % (37-47); Hemoglobin 10.2 g/dL (12.0-15.0); Immature Granulocytes Count 0.010 X10^3/uL (0.0-0.0); Mean Corp Hgb Conc 32.6 g/dL (32-36); Mean Corpuscular Volume 83.7 fL (81-99); Mean Platelet Vol. 9.4 fl (6.2-12.0); NRBC Flagged by Analyzer 0 % (0-5); Platelet Count 297 K/mm3 (150-450); RBC Distribution Width CV 14.6 % (11.6-14.6); RBC Distribution Width SD 44.8 fl (35.1-43.9); Red Blood Count 3.74 M/mm3 (4.2-5.4); White Blood Count 5.3 K/mm3 (4.4-11.0)
[2025-02-23 05:21] LABS: Prothrombin Time (Protime)PT. 20.0 SECONDS (11.7-14.9)
[2025-02-23 05:40] LABS: Magnesium 1.6 mg/dL (1.5-2.2)
[2025-02-23 05:45] LABS: Anion Gap 11 (5-15); BUN 2 mg/dL (4-19); BUN/Creat Ratio 3.5 RATIO (10-20); Calcium,Total 7.6 mg/dL (7.6-11.0); Carbon Dioxide 22.5 mmol/L (21.0-32.0); Chloride 108 mmol/L (98-108); Estimated Creatinine Clearance 119.04 ml/min (50-250); Glucose 112 mg/dL (70-99); Potassium 2.9 mmol/L (3.3-5.1)
[2025-02-23 05:50] VITALS: BP 108/74; PULSE 69; RESP 18; TEMP 36.6; O2SAT 100
[2025-02-23 06:00] VITALS: BMI 29.0
[2025-02-23 08:49] VITALS: BP 100/71; PULSE 80; RESP 18; TEMP 36.4; O2SAT 99
[2025-02-23] MEDS: Potassium Chloride Oral Tablet 20 MEQ 40 MEQ PO (08:53)
[2025-02-23] MEDS: Juven (unflavored) Packet 1 PACKET PO (08:53)
[2025-02-23] MEDS: Diphenoxylate/Atrop 1 Tablet PO (08:59)
[2025-02-23 12:34] LABS: Anion Gap 7 (5-15); BUN < 2 mg/dL (4-19); BUN/Creat Ratio UNABLE TO CALCULATE RATIO (10-20); Calcium,Total 7.1 mg/dL (7.6-11.0); Carbon Dioxide 25.8 mmol/L (21.0-32.0); Chloride 109 mmol/L (98-108); Estimated Creatinine Clearance 123.02 ml/min (50-250); Glucose 136 mg/dL (70-99); Potassium 3.2 mmol/L (3.3-5.1)
--- NOTE | 2025-02-23 13:13 | DCINST_ITS ---
Discharge Instructions DC O2, CPAP, BIPAP needs Home O2 Discharge instructions: No Dressing / Incision Discharge Activity: Return to Normal Activity Dressing / Incision Call your doctor if you observe: Fever of 101 or Higher, Shortness of breath, Dizziness, Fainting spells, Swelling in the ankles, Chest pain and Increased palpitations (irregular heartbeat) Follow Up Care Test Results: Test results from this visit will be discussed in further detail at your follow- up appointment, if applicable. Discharge Plan Admission Admit Date/Time: 02/19/25 22:44 Attending Provider: Taras Sue Primary Care Provider: Fredrick Boland Consulting Providers: Nixon Espinal Discharge Orders/Prescriptions Prescriptions: New loperamide [Imodium A-D] 2 mg capsule 2 mg PO Q6H PRN (Reason: loose stool) Qty: 30 0RF Continued escitalopram oxalate 20 mg tablet 30 mg PO DAILY olanzapine 20 mg tablet 20 mg PO QHS omeprazole 40 mg capsule,delayed release(DR/EC) 40 mg PO DAILY PRN (Reason: reflux) warfarin 5 mg tablet 2.5 mg PO QHS Changed potassium chloride 20 mEq Tablet,Er Particles/Crystals 40 meq PO DAILY Qty: 60 2RF Referrals / Follow Up: Fredrick Boland DO [Primary Care Provider] - Within 1 Week Disposition Disposition (needs filled in before D/C Order can be placed): Home, Self Care
[2025-02-23 15:00] VITALS: BP 122/82; PULSE 80; RESP 18; TEMP 36.1; O2SAT 99
--- NOTE | 2025-02-23 15:05 | DS.PCM_ITS ---
Providers Date of Admission: 02/19/25 Primary Care Physician: Dr. 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 Routine Comment: Reason for Consult:: wound to the left heel Reason For Visit: HYPOKALEMIA,HYPOMAGNESEMIA,LACTIC ACIDOSIS & MYOTO Diagnosis Discharge Diagnosis (1) Acidosis, lactic: Status: Acute Code(s): E87.20 - Acidosis, unspecified (2) Diarrhea: Status: Acute Code(s): R19.7 - Diarrhea, unspecified Qualifiers: Diarrhea type: presumed infectious Qualified Code(s): R19.7 - Diarrhea, unspecified (3) Transaminitis: Status: Acute Code(s): R74.01 - Elevation of levels of liver transaminase levels Medications at Discharge Home Medications escitalopram oxalate 20 mg tablet 30 mg PO DAILY ASK PCP 04/27/22 olanzapine 20 mg tablet 20 mg PO QHS ASK PCP 06/20/23 omeprazole 40 mg capsule,delayed release 40 mg PO DAILY PRN reflux 06/20/23 warfarin 5 mg tablet 2.5 mg PO QHS 01/17/25 loperamide 2 mg capsule (Imodium A-D) 2 mg PO Q6H PRN loose stool #30 caps 02/23/25 potassium chloride 20 mEq tablet,extended release(part/cryst) 40 meq (2 x 20 mEq) PO DAILY k+ replace #60 tabs 02/23/25 Hospital Course Operations None Procedures None Summary of Care Provided Minutes Spent on Discharge: 35 Hospital Course: Per HPI: CHERYL EVANS, is a 39 F with a past medical history of being overweight; with BMI of 28.2 this admission, history of provoked bilateral LE DVT's after abdominal surgery; on warfarin, history of transmetatarsal amputation of the Left foot November 15, 2024 due to compartment syndrome with gangrene of toes with surgery done by Dr. Arreaga of podiatry with subsequent plantar medial ulceration of the Left heel followed [facility] by Dr. 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 Ms. Evans reports her symptoms began approximately one day prior to admission with increasing lower extremity weakness that caused her to be unable to walk. She also admits to severe pain in her hips/thighs as well with persistent nonbloody diarrhea after recent reanastomosis of her bowels and recent antibiotic treatment for SIBO . She denies associated fever, chills, nausea, vomiting, constipation, abdominal pain, chest pain, palpitations, heart racing, lower extremity edema, dysuria, hematuria, headache or rash. In the ER she was noted to have Severe Hypokalemia of 2.1 mmol/L and Severe Hypomagnesemia of 0.8 mg/dL both present on admission complicated by Lactic Acidosis of 2.3 mmol/L present on admission likely due to persistent Diarrhea with further laboratory evidence of Myotoxicity; with elevate total creatinine kinase of 700 U/L and mild Transaminitis; with AST 119 U/L, ALT 66 U/L and Alkaline Phosphatase of 160 U/L all present on admission along with a UDS positive for benzodiazepines with corresponding clinical evidence of Generalized Weakness with Ambulatory Dysfunction and she was then admitted to the PCU for ongoing care for a stay that is expected to extend beyond 2 midnights. Hospital Course: 1. Dehydration from gastroenteritis after reversal of her ostomy which had high ostomy output as a result of extensive small bowel resection due to SMA thrombosis/hypokalemia, hypocalcemia, and hypomagnesemia?39-year-old female with a previous history of drug abuse and a recent complicated medical history with SMA thrombosis and small bowel resection with ileostomy and shower emboli to her feet leading to gangrene and a transmetatarsal resection as well as a right toe resection. She presents to the hospital with what appears to be gastroenteritis, stool cultures were negative. She had nausea and vomiting as well as diarrhea, to the point where she said that her potassium tablets would come out whole. She did have significant deficiency in her potassium and it did take several days to normalize this. We did get her up to a potassium of 3.2 on the day of discharge and her p.o. potassium supplementation was increased to 40 mEq daily. She does have PPI at home which we will continue and I also started her on Imodium on discharge since her culture data were negative given her continued issues with with diarrhea at baseline. She will need to follow-up with her PCP in 3 to 5 days for further monitoring and further electrolyte evaluation and to make adjustments to her medications. 2. Status post transmetatarsal amputation with a right toe amputation due to gangrene from shower emboli during her SMA thrombosis evaluation and treatment at the outside hospital, bipolar disorder, GERD her chronic medical conditions which complicate her care. Her home medications were continued with appropriate Physical Exam Narrative General: Alert, Oriented x3, Cooperative, No apparent distress HEENT: Atraumatic, PERRLA, EOMI, Normocephalic Oral: Moist Mucosa Neck: Supple, No JVD Lungs: Clear to auscultation, Normal air movement, No rhonchi, No wheeze, No rales Cardiovascular: Regular rate, Regular Rhythm, Normal S1, Normal S2, No murmurs Abdomen: Soft, Non Tender, Non-Distended, No Hepato-splenomegaly Extremities: No edema, Capillary Refill Less than 3 Seconds Skin: Chronic lower extremity wounds and dressings Musculoskeletal: No Tenderness to Palpation of Joints or Extremities Neurological: No focal neurological deficits, moves all extremities Psych/Mental Status: Flat Weight / BMI Weight Weight: 184 lb 15.485 oz Body Mass Index (BMI) 29.0 ABG / Lab / Microbiology Data 02/23/25 04:12 02/23/25 12:01 Laboratory: Laboratory Results - last 24 hr 02/23/25 04:12: WBC 5.3, RBC 3.74 L, Hgb 10.2 L, Hct 31.3 L, MCV 83.7, MCH 27.3, MCHC 32.6, RDW Std Deviation 44.8 H, RDW Coeff of Chris 14.6, Plt Count 297, MPV 9.4, Immature Gran % (Auto) 0.200, Neut % (Auto) 60.8, Lymph % (Auto) 28.3, [place] % (Auto) 7.5, Eos % (Auto) 2.6, Baso % (Auto) 0.6, Absolute Neuts (auto) 3.3, Absolute Lymphs (auto) 1.51, Nucleated RBC % 0, PT 20.0 H, INR 1.7, Sodium 141, Potassium 2.9 L, Chloride 108, Carbon Dioxide 22.5, Anion Gap 11, BUN 2 L, C reatinine 0.69 L, Estim Creat Clear Calc 119.04, Est GFR (MDRD) Non-Af 112, B UN/Creatinine Ratio 3.5 L, Glucose 112 H, Calcium 7.6, Phosphorus 3.4, Magnesium 1.6 02/23/25 12:01: Sodium 142, Potassium 3.2 L, Chloride 109 H, Carbon Dioxide 25.8, Anion Gap 7, BUN < 2 L, Creatinine 0.67 L, Estim Creat Clear Calc 123.02, Est GFR (MDRD) Non-Af 113, BUN/Creatinine Ratio UNABLE TO CALCULATE L, Glucose 136 H, Calcium 7.1 L Microbiology: Microbiology 02/19/25 18:56 Stool Stool Lactoferrin - Final 02/19/25 18:56 Stool Enteric Bacteriology - Final 02/19/25 18:56 Stool Clostridioides difficile (PCR) - Final 02/19/25 18:56 Stool Stool Occult Blood (AUDRA) - Final D/C Instructions Call your doctor if you observe: Fever of 101 or Higher, Shortness of breath, Dizziness, Fainting spells, Swelling in the ankles, Chest pain and Increased palpitations (irregular heartbeat) DC O2, CPAP, BIPAP Needs Home O2 Discharge instructions: No Meaningful Use Info Meaningful Use Meaningful Use Diagnoses (Choose all that apply): None applicable Discharge Plan Admission Admit Date/Time: 02/19/25 22:44 Attending Provider: Taras Sue Primary Care Provider: Fredrick Boland Consulting Providers: Nixon Espinal Discharge Orders/Prescriptions Prescriptions: New loperamide [Imodium A-D] 2 mg capsule 2 mg PO Q6H PRN (Reason: loose stool) Qty: 30 0RF Continued escitalopram oxalate 20 mg tablet 30 mg PO DAILY olanzapine 20 mg tablet 20 mg PO QHS omeprazole 40 mg capsule,delayed release(DR/EC) 40 mg PO DAILY PRN (Reason: reflux) warfarin 5 mg tablet 2.5 mg PO QHS Changed potassium chloride 20 mEq Tablet,Er Particles/Crystals 40 meq PO DAILY Qty: 60 2RF Referrals / Follow Up: Fredrick Boland DO [Primary Care Provider] - Within 1 Week Disposition Disposition (needs filled in before D/C Order can be placed): Home, Self Care Charges/Coding Visit Charges Inpatient E&M: 01818 Disch Hosp >30min
== END 2025-02-23 16:09 | disposition home or self-care (01) | DRG 252 ==
LOC: ED 22:03 → PCU 23:04
PROVIDERS: Admitting Provider Internal Medicine; Emergency Provider Emergency Medicine; PCP Student in an Organized Health Care Education/Training Program; Visit Provider Family Medicine
DX: K91.89 Other postprocedural complications and disorders of digestive system (principal); E83.51 Hypocalcemia; I96 Gangrene, not elsewhere classified; E87.20 Acidosis, unspecified; F31.9 Bipolar disorder, unspecified; F60.3 Borderline personality disorder; E86.0 Dehydration; K52.9 Noninfective gastroenteritis and colitis, unspecified; E87.6 Hypokalemia; F41.9 Anxiety disorder, unspecified; K42.9 Umbilical hernia without obstruction or gangrene; K21.9 Gastro-esophageal reflux disease without esophagitis; E83.42 Hypomagnesemia; Z89.421 Acquired absence of other right toe(s); Z87.891 Personal history of nicotine dependence; R74.01 Elevation of levels of liver transaminase levels; Z79.01 Long term (current) use of anticoagulants; R26.89 Other abnormalities of gait and mobility; Z86.718 Personal history of other venous thrombosis and embolism; Z79.891 Long term (current) use of opiate analgesic; Z90.49 Acquired absence of other specified parts of digestive tract
CPT/HCPCS: 36415; 75635; 80048; 80053; 80074; 80307; 81001; 82274; 82330; 82550; 82607; 82728; 82746; 83540; 83550; 83605; 83630; 83690; 83735; 84100; 84443; 84703; 85025; 85610; 85730; 87177; 87209; 87493; 87506; 94668; 97116; 97162; 97165; 97802; 99285; P9612; Q9967; A4216; J0612; J2405

== ENCOUNTER 2025-03-14 10:00 | Outpatient (RCR) | payer MEDICAID, SELFPAY ==
[2025-02-28 09:54] VITALS: BP 106/80; PULSE 98; RESP 16; TEMP 36.1
--- NOTE | 2025-02-28 13:24 | WC ---
PHOTO-LEFT HEEL 02/28/25
--- NOTE | 2025-02-28 13:39 | PN.PCM_ITS ---
History of Present Illness Date of Service: 02/28/25 Chief Complaint: Left medial calcaneal ulceration History of Wound: Patient is a 39-year-old female who was referred to the wound care center for continued care of her plantar medial ulceration of the left heel. Patient reports feeling ill and october 2024 and reported to the ED at [facility] where she was admitted and underwent abdominal surgery however developed complications with clot thrown to the left foot which resulted in necrosis of the digits of the foot in addition to necrosis of the plantar medial calcaneus. She did undergo transmetatarsal amputation on 11/15/[address] Arreaga. The TMA site did heal well however she continued local wound care in his office for the last 8 weeks without improvement. There has been applications of Ernestina and bacitracin ointment to the site. She continues to ambulate in surgical shoe as her insurance will not cover knee scooter. Does admit to tenderness at times to the heel secondary to the ulceration site. Patient denies diabetes and states all of her issues of this foot have been caused by an embolic shower which resulted in her amputation. She denies N/V/F/chills. Denies further complaints. Subjective Subjective This is a 39-year-old female who returns to the wound care center today for continued follow-up of a plantar medial left heel ulceration secondary to acute thrombotic event. She continues applying the collagen powder, hydrogel, and PHMB dressings as instructed daily. She states continued improvement with decreasing wound size. States site continues to look good. Reports the offloading padding did significantly help. Admits to recent hospitalization at [place] due to hypokalemia. Denies constitutional symptoms. Denies further complaints. Objective Data Objective Data Vital Signs: Vital Signs Temp Pulse Resp BP 96.9 F L 98 16 106/80 02/28/25 09:54 02/28/25 09:54 02/28/25 09:54 02/28/25 09:54 Physical Exam Const alert, oriented x3 and no apparent distress General Appearance: cooperative HEENT normocephalic Eyes General Eye: normal appearance of both eyes Neck General: normal visual inspection Lymph Lymphatic: no lymphadenopathy noted and no lymphedema noted Resp normal respiratory effort Cardio regular rate and regular rhythm Extremity no calf tenderness Extremity Narrative: Left lower extremity: Vascular: DP and PT pulses palpable. CFT is less than 3 seconds to digits. Normal temperature gradient. Hair growth is present to digit. Neurologic: Epicritic sensation intact without focal deficit noted. Musculoskeletal: Muscle strength 5/5 and age-appropriate. Full range of motion of the ankle joint, STJ, MTJ, and first MTPJ appreciated. No pain to palpation of calf. Transmetatarsal amputation noted. There is some pain to palpation about the ulcerative site of the medial calcaneus. Dermatologic: Cicatrix appreciated at the transmetatarsal amputation stump. There is a full-thickness ulceration noted to the plantar medial aspect of the calcaneus with healthy granular layer. There is some dried crusting at the wound margins secondary to continued serosanguineous drainage. No purulent drainage, no malodor noted. No signs of infection. Skin no rashes or lesions noted and skin turgor normal Neuro moves all extremities Debridement Note Debridement Note Wound debrided: Left medial calcaneus Laterality: Left Wound Grade/Stage: Bhandari stage I Type of Debridement: Excisional debridement Anesthesia Used: 5% Lidocaine Gel Depth: Down to and including healthy tissue and in the subcutaneous layer Percentage of wound debrided: 100 Instrument Used: 7mm curette Tissue Removed: Fibrous, devitalized subcutaneous, biofilm, slough Severity: Fat Layer Exposed Amount of bleeding with debridement: Mild Bleeding Controlled with: Compression and gauze Patient tolerated procedure: Patient tolerated procedure well Post-Debridement Measurements and Additional Note: Post-Debridement Measurements/Treatment - Nurse 1 - General Ulcer Assessment Start: 02/28/25 09:54 Freq: Status: Active Protocol: SANTO Activity Type Activity Date Activity User E-sign Co-sign Detail Recorded Client Recorded Date Recorded By Document 02/28/25 09:54 DL [id number] 02/28/25 10:02 DL 02/28/25 09:54 - Today's Visit Information Type of service Follow-up Visit (Physician/KILN LOADER ) Arrival Mode Ambulatory Transfer Assistance None Patient Identification Verified (Name & Yes ) Patient Requires Transmission-Based No Precautions Vital Signs Temperature (97.8 F-99.1 F) 96.9 F L Temperature Source Temporal Pulse Rate (60-100) 98 Pulse Location Monitor Respiratory Rate (12-18) 16 Respiratory rate source Observation Blood Pressure (90/60-120/80) 106/80 Blood Pressure Mean (mm Hg) 88 Source Monitor History Since Last Visit- (Skip if this is Patient's initial visit) Have you changed medications since your No last visit? Any new allergies or adverse reactions No Had a fall/change in ADL's that may No increase risk of falls Signs or symptoms of abuse and/or No neglect since last visit Have you been in the hospital since your No last visit? Has dressing in place as prescribed Yes Has compression in place as prescribed Yes Has offloadiing in place as prescribed Yes Experienced any changes in pain level or No management Left Footwear Surgical Shoe with pressure relief insole Pain Scale: 0-10 Numeric Is Patient Pain Free? Yes - Nurse 1 - General Ulcer Measurement Start: 02/28/25 09:54 Freq: Status: Active Protocol: Activity Type Activity Date Activity User E-sign Co-sign Detail Recorded Client Recorded Date Recorded By Document 02/28/25 09:54 [id number] 02/28/25 10:02 DL 02/28/25 09:54 Wound Center Nurse 1 #1 L Heel -Current Size (cm) - Length 1.6 -Current Size (cm) - Width 0.6 -Current Size (cm) - Depth 0.1 -Total Square Cm 0.96 -Photo Taken Yes -Exudate Amt Medium -Exudate Type Serosanguineous -Wound Margin Thickened -Granulation Amt Medium (34-66%) -Granulation Quality Pale,[place] -Necrosis Amt Medium (34-66%) -Necrotic Tissue Type Adherent Slough -Structure Exposed N/A -Texture (Bryanna-wound Skin Appearance) Scarring -Moisture (Bryanna-wound Skin Appearance) Dry/Scaly -Color (Bryanna-wound Skin Appearance) No Abnormality -Temperature (Bryanna-wound Skin No Abnormality Appearance) (Pt Warm) -Tenderness on Palpation (Bryanna-wound No Skin Appearance) -Ulcer Cleansing Soap and Water -Foul Odor after Cleansing No -Anesthetic Used 5% Lidocaine Gel WC - Nurse 2 - General Ulcer CM Notes Start: 02/28/25 09:54 Freq: Status: Active Protocol: Activity Type Activity Date Activity User E-sign Co-sign Detail Recorded Client Recorded Date Recorded By Document 02/28/25 10:19 [facility] [id number] 02/28/25 10:30 [facility] 02/28/25 10:19 Wound Center Nurse 2 -Time 10:20 -Correct Patient Yes -Correct Side, Site, Position Yes -Correct Procedure Yes -Procedure Performed Yes -Type of Procedure Debridement -Clinical Debridement Subcutaneous -Tissue Removed Subcutaneous -Post Debridement (cm) - Length 1.4 -Post Debridement (cm) - Width 0.9 -Post Debridement (cm) - Depth 0.1 -Total Square (Post) (cm) 1.26 -Area of Debridement (cm) - Length 1.4 -Area of Debridement (cm) - Width 0.9 -Total Square (Area) (cm) 1.26 -Tunneling No -Undermining/Tunneling No -Circular Undermining No -Wound/Ulcer Outcome Not Healed -Ulcer Cleansing Rinsed/ Irrigated with Saline -Foul Odor after Cleansing No -Bioengineered Tissue No -Bleeding Controlled with Pressure -Treatment Response Procedure Tolerated Well -Debridement - Subq, 1st 20sq cm Yes Pain Scale: 0-10 Numeric Is Patient Pain Free? Yes - Nurse 3 - General Ulcer D/C NN Start: 02/28/25 09:54 Freq: Status: Active Protocol: Activity Type Activity Date Activity User E-sign Co-sign Detail Recorded Client Recorded Date Recorded By Document 02/28/25 10:42 DL [id number] 02/28/25 10:44 DL 02/28/25 10:42 Wound Care Center Nurse 3 #1 L Heel -Ulcer Cleansing Rinsed/ Irrigated with Saline -Foul Odor after Cleansing No -Other Dressing Purachol/ hydrogel/AMD/ PAD -Primary Dressing Covered/Secured with Dry Gauze & Roll Gauze, Secured with Tape -Other Covering ABD/ELMIRA Treatment Response Procedure Tolerated Well Pain Scale: 0-10 Numeric Is Patient Pain Free? No WC - Visit Discharge Discharge Condition Stable Ambulatory Status Ambulatory Transportation Private Auto Assessment/Plan Assessment/Plan (1) Ischemic ulcer of left heel with fat layer exposed: CODE(S): L97.422 - Non-pressure chronic ulcer of left heel and midfoot with fat layer exposed (2) Pain in left foot: CODE(S): M79.672 - Pain in left foot (3) History of transmetatarsal amputation of left foot: CODE(S): Z89.432 - Acquired absence of left foot PLAN: Plan Patient seen and evaluated Predebridement measurement: 1.3 cm x 0.8 cm x 0.1 cm Postdebridement measurement: 1.4 cm x 0.9 cm x 0.1 cm Ulceration underwent debridement as noted in the clinical panel above. Collagen powder moistened with hydrogel and PHMB dressing applied to the ulcerative site and dressed with dry sterile dressing. She is to change dressing daily. There is continued reduction in the length and the width versus her previous visit. Ulceration is noted to be healing well with current treatment regiment. Discussed nonweightbearing status of the left lower extremity. Insurance has denied knee scooter and she cannot afford to rent or pay [id number]. She does have a walker and I have suggested she return to use of the walker with her surgical shoe for the nonweightbearing status. However due to her currently ambulating with surgical shoe additional felt offloading padding was placed about the heel over top of the PHMB foam dressing to allow the ulcerative site to float inside of the dressing. This has proven to work well leading to improvement in her ulceration size. Discussed continued adequate protein intake to aid in wound healing. Tacho supplementation was also recommended. Ulceration is secondary to acute ischemic event in relation to her previous abdominal surgery. Discussed signs and symptoms of infection. Discussed if she notices increasing redness around the ulcerative site that moves up the leg, purulent drainage from the wound site, increasing foul odor from the wound site, or if she experiences fever greater than 101 degree accompanied by nausea, vomiting, chills that these are signs of a progressing infection and she should report to the ED for IV antibiotics and further evaluation. She is understanding of this. The following work up and care recommendations were made: Dressing: Collagen powder, hydrogel, PHMB foam, felt offloading padding and dry sterile dressing. Change dressing daily. Wash: Soap and water Tissue growth optimization: Collagen powder and hydrogel and PHMB foam Offload: Remain nonweightbearing to the left lower extremity with assistance of walker Vascular: DP and PT pulses palpable. Adequate cap fill to digits. Vascular status is not impacting healing however ulceration is secondary to an acute thrombotic event and she is currently on anticoagulant therapy. Edema: None Infection: No signs of infection Pain: Continue extra strength Tylenol for discomfort as she is currently on anticoagulant therapy. Host factors: Acute ischemic event, otherwise no factors to impede healing. I answered all the patient's questions. To return to the wound healing center in 1 week or call sooner if the patient has any questions or concerns.
[2025-03-07 10:16] VITALS: BP 90/66; PULSE 125; RESP 16; TEMP 35.9
--- NOTE | 2025-03-07 13:22 | PCM.WC.PN ---
History of Present Illness Date of Service: 03/07/25 Chief Complaint: Left medial calcaneal ulceration History of Wound: Patient is a 39-year-old female who was referred to the wound care center for continued care of her plantar medial ulceration of the left heel. Patient reports feeling ill and october 2024 and reported to the ED at [facility] where she was admitted and underwent abdominal surgery however developed complications with clot thrown to the left foot which resulted in necrosis of the digits of the foot in addition to necrosis of the plantar medial calcaneus. She did undergo transmetatarsal amputation on 11/15/[address] Arreaga. The TMA site did heal well however she continued local wound care in his office for the last 8 weeks without improvement. There has been applications of Ernestina and bacitracin ointment to the site. She continues to ambulate in surgical shoe as her insurance will not cover knee scooter. Does admit to tenderness at times to the heel secondary to the ulceration site. Patient denies diabetes and states all of her issues of this foot have been caused by an embolic shower which resulted in her amputation. She denies N/V/F/chills. Denies further complaints. Subjective Subjective This is a 39-year-old female who returns to the wound care center today for continued follow-up of a plantar medial left heel ulceration secondary to acute thrombotic event. She continues applying the collagen powder, hydrogel, and PHMB dressings as instructed daily. She states continued improvement with decreasing wound size. States site continues to look good. Reports the offloading padding continues to significantly help and the ulceration is getting smaller. Denies constitutional symptoms. Denies further complaints. Objective Data Objective Data Vital Signs: Vital Signs Temp Pulse Resp BP 96.7 F L 125 H 16 90/66 03/07/25 10:16 03/07/25 10:16 03/07/25 10:16 03/07/25 10:16 Physical Exam Const alert, oriented x3 and no apparent distress General Appearance: cooperative HEENT normocephalic Eyes General Eye: normal appearance of both eyes Neck General: normal visual inspection Lymph Lymphatic: no lymphadenopathy noted and no lymphedema noted Resp normal respiratory effort Cardio regular rate and regular rhythm Extremity no calf tenderness Extremity Narrative: Left lower extremity: Vascular: DP and PT pulses palpable. CFT is less than 3 seconds to digits. Normal temperature gradient. Hair growth is present to digit. Neurologic: Epicritic sensation intact without focal deficit noted. Musculoskeletal: Muscle strength 5/5 and age-appropriate. Full range of motion of the ankle joint, STJ, MTJ, and first MTPJ appreciated. No pain to palpation of calf. Transmetatarsal amputation noted. There is some pain to palpation about the ulcerative site of the medial calcaneus. Dermatologic: Cicatrix appreciated at the transmetatarsal amputation stump. There is a full-thickness ulceration noted to the plantar medial aspect of the calcaneus with healthy granular layer. There is some dried crusting at the wound margins secondary to continued serosanguineous drainage. No purulent drainage, no malodor noted. No signs of infection. Skin no rashes or lesions noted and skin turgor normal Neuro moves all extremities Debridement Note Debridement Note Wound debrided: Left medial calcaneus Laterality: Left Wound Grade/Stage: Bhandari stage I Type of Debridement: Excisional debridement Anesthesia Used: 5% Lidocaine Gel Depth: Down to and including healthy tissue and in the subcutaneous layer Percentage of wound debrided: 100 Instrument Used: 5mm curette Tissue Removed: Fibrous, devitalized subcutaneous, biofilm, slough Severity: Fat Layer Exposed Amount of bleeding with debridement: Mild Bleeding Controlled with: Compression and gauze Patient tolerated procedure: Patient tolerated procedure well Post-Debridement Measurements and Additional Note: Post-Debridement Measurements/Treatment - Nurse 1 - General Ulcer Assessment Start: 02/28/25 09:54 Freq: Status: Active Protocol: .LOWEXT Activity Type Activity Date Activity User E-sign Co-sign Detail Recorded Client Recorded Date Recorded By Document 02/28/25 09:54 DL [id number] 02/28/25 10:02 DL Document 03/07/25 10:16 DL [id number] 03/07/25 10:23 DL 02/28/25 03/07/25 09:54 10:16 - Today's Visit Information Type of service Follow-up Visit Follow-up Visit (Physician/ENGAGEMENT LEAD (Physician/ENGAGEMENT LEAD ) ) Arrival Mode Ambulatory Ambulatory Transfer Assistance None None Patient Identification Verified (Name & Yes Yes ) Patient Requires Transmission-Based No No Precautions Vital Signs Temperature (97.8 F-99.1 F) 96.9 F L 96.7 F L Temperature Source Temporal Temporal Pulse Rate (60-100) 98 125 H Pulse Location Monitor Monitor Respiratory Rate (12-18) 16 16 Respiratory rate source Observation Observation Blood Pressure (90/60-120/80) 106/80 90/66 Blood Pressure Mean (mm Hg) 88 74 Source Monitor Monitor History Since Last Visit- (Skip if this is Patient's initial visit) Have you changed medications since your No No last visit? Any new allergies or adverse reactions No No Had a fall/change in ADL's that may No No increase risk of falls Signs or symptoms of abuse and/or No No neglect since last visit Have you been in the hospital since your No No last visit? Has dressing in place as prescribed Yes Yes Has compression in place as prescribed Yes Yes Has offloadiing in place as prescribed Yes Yes Experienced any changes in pain level or No No management Left Footwear Surgical Shoe with pressure relief insole Pain Scale: 0-10 Numeric Is Patient Pain Free? Yes Yes WC - Nurse 1 - General Ulcer Measurement Start: 02/28/25 09:54 Freq: Status: Active Protocol: Activity Type Activity Date Activity User E-sign Co-sign Detail Recorded Client Recorded Date Recorded By Document 02/28/25 09:54 DL [id number] 02/28/25 10:02 DL Document 03/07/25 10:16 DL [id number] 03/07/25 10:23 DL 02/28/25 03/07/25 09:54 10:16 Wound Center Nurse 1 #1 L Heel -Current Size (cm) - Length 1.6 1.1 -Current Size (cm) - Width 0.6 0.5 -Current Size (cm) - Depth 0.1 0.1 -Total Square Cm 0.96 0.55 -Photo Taken Yes Yes -Exudate Amt Medium Small -Exudate Type Serosanguineous Serosanguineous -Wound Margin Thickened Distinct, Outline Attached -Granulation Amt Medium (34-66%) Small (1-33%) -Granulation Quality Pale,[place] Pale,[place] -Necrosis Amt Medium (34-66%) Small (1-33%) -Necrotic Tissue Type Adherent Slough Adherent Slough -Structure Exposed N/A N/A -Texture (Bryanna-wound Skin Appearance) Scarring Scarring -Moisture (Bryanna-wound Skin Appearance) Dry/Scaly No Abnormality -Color (Bryanna-wound Skin Appearance) No Abnormality No Abnormality -Temperature (Bryanna-wound Skin No Abnormality No Abnormality Appearance) (Pt Warm) (Pt Warm) -Tenderness on Palpation (Bryanna-wound No No Skin Appearance) -Ulcer Cleansing Soap and Water Soap and Water -Foul Odor after Cleansing No No -Anesthetic Used 5% Lidocaine 5% Lidocaine Gel Gel WC - Nurse 2 - General Ulcer CM Notes Start: 02/28/25 09:54 Freq: Status: Active Protocol: Activity Type Activity Date Activity User E-sign Co-sign Detail Recorded Client Recorded Date Recorded By Document 02/28/25 10:19 [facility] [id number] 02/28/25 10:30 [facility] Document 03/07/25 10:47 [facility] [id number] 03/07/25 10:52 [facility] 02/28/25 03/07/25 10:19 10:47 Wound Center Nurse 2 #1 L Heel -Time 10:20 10:47 -Correct Patient Yes Yes -Correct Side, Site, Position Yes Yes -Correct Procedure Yes Yes -Procedure Performed Yes Yes -Type of Procedure Debridement Debridement -Clinical Debridement Subcutaneous Subcutaneous -Tissue Removed Subcutaneous Subcutaneous -Post Debridement (cm) - Length 1.4 0.5 -Post Debridement (cm) - Width 0.9 1 -Post Debridement (cm) - Depth 0.1 0.1 -Total Square (Post) (cm) 1.26 0.5 -Area of Debridement (cm) - Length 1.4 0.5 -Area of Debridement (cm) - Width 0.9 1 -Total Square (Area) (cm) 1.26 0.5 -Tunneling No No -Undermining/Tunneling No No -Circular Undermining No No -Wound/Ulcer Outcome Not Healed Not Healed -Ulcer Cleansing Rinsed/ Rinsed/ Irrigated with Irrigated with Saline Saline -Foul Odor after Cleansing No No -Bioengineered Tissue No No -Bleeding Controlled with Pressure Pressure -Treatment Response Procedure Procedure Tolerated Well Tolerated Well -Debridement - Subq, 1st 20sq cm Yes Yes Pain Scale: 0-10 Numeric Is Patient Pain Free? Yes Yes WC - Nurse 3 - General Ulcer D/C NN Start: 02/28/25 09:54 Freq: Status: Active Protocol: Activity Type Activity Date Activity User E-sign Co-sign Detail Recorded Client Recorded Date Recorded By Document 02/28/25 10:42 DL [id number] 02/28/25 10:44 DL Document 03/07/25 11:18 ML [id number] 03/07/25 11:20 ML 02/28/25 03/07/25 10:42 11:18 Wound Care Center Nurse 3 #1 L Heel -Ulcer Cleansing Rinsed/ Rinsed/ Irrigated with Irrigated with Saline Saline -Foul Odor after Cleansing No -Primary Dressing Applied AMD Dressing 4x4,C Hydrogel, Collagen Powder -Other Dressing Purachol/ [place] hydrogel/AMD/ PAD -Primary Dressing Covered/Secured with Dry Gauze & Dry Gauze & Roll Gauze, Roll Gauze, Secured with Secured with Tape Tape -Other Covering ABD/ELMIRA -AMD Dressing 4x4 1 -Collagen Powder 1 -Hydrogel 0 Treatment Response Procedure Tolerated Well Pain Scale: 0-10 Numeric Is Patient Pain Free? 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 Collagen powder moistened with hydrogel and PHMB dressing applied to the ulcerative site and dressed with dry sterile dressing. She is to change dressing daily. There is continued reduction in the length versus her previous visit. Ulceration is noted to be healing well with current treatment regiment. Discussed nonweightbearing status of the left lower extremity. Insurance has denied knee scooter and she cannot afford to rent or pay [id number]. She does have a walker and I have suggested she return to use of the walker with her surgical shoe for the nonweightbearing status. However due to her currently ambulating with surgical shoe additional felt offloading padding was placed about the heel over top of the PHMB foam dressing to allow the ulcerative site to float inside of the dressing. This has proven to work well leading to improvement in her ulceration size. Discussed continued adequate protein intake to aid in wound healing. Tacho supplementation was also recommended. Ulceration is secondary to acute ischemic event in relation to her previous abdominal surgery. Discussed signs and symptoms of infection. Discussed if she notices increasing redness around the ulcerative site that moves up the leg, purulent drainage from the wound site, increasing foul odor from the wound site, or if she experiences fever greater than 101 degree accompanied by nausea, vomiting, chills that these are signs of a progressing infection and she should report to the ED for IV antibiotics and further evaluation. She is understanding of this. The following work up and care recommendations were made: Dressing: Collagen powder, hydrogel, PHMB foam, felt offloading padding and dry sterile dressing. Change dressing daily. Wash: Soap and water Tissue growth optimization: Collagen powder and hydrogel and PHMB foam Offload: Remain nonweightbearing to the left lower extremity with assistance of walker Vascular: DP and PT pulses palpable. Adequate cap fill to digits. Vascular status is not impacting healing however ulceration is secondary to an acute thrombotic event and she is currently on anticoagulant therapy. Edema: None Infection: No signs of infection Pain: Continue extra strength Tylenol for discomfort as she is currently on anticoagulant therapy. Host factors: Acute ischemic event, otherwise no factors to impede healing. I answered all the patient's questions. To return to the wound healing center in 1 week or call sooner if the patient has any questions or concerns.
--- NOTE | 2025-03-07 13:51 | WC ---
PHOTO-LEFT HEEL 03/07/25
[2025-03-14 10:22] VITALS: BP 108/78; PULSE 102; RESP 16; TEMP 36.4
--- NOTE | 2025-03-14 12:51 | PN.PCM_ITS ---
History of Present Illness Date of Service: 03/14/25 Chief Complaint: Left medial calcaneal ulceration History of Wound: Patient is a 39-year-old female who was referred to the wound care center for continued care of her plantar medial ulceration of the left heel. Patient reports feeling ill and october 2024 and reported to the ED at [facility] where she was admitted and underwent abdominal surgery however developed complications with clot thrown to the left foot which resulted in necrosis of the digits of the foot in addition to necrosis of the plantar medial calcaneus. She did undergo transmetatarsal amputation on 11/15/[address] Arreaga. The TMA site did heal well however she continued local wound care in his office for the last 8 weeks without improvement. There has been applications of Ernestina and bacitracin ointment to the site. She continues to ambulate in surgical shoe as her insurance will not cover knee scooter. Does admit to tenderness at times to the heel secondary to the ulceration site. Patient denies diabetes and states all of her issues of this foot have been caused by an embolic shower which resulted in her amputation. She denies N/V/F/chills. Denies further complaints. Subjective Subjective This is a 39-year-old female who returns to the wound care center today for continued follow-up of a plantar medial left heel ulceration secondary to acute thrombotic event. She continues applying the collagen powder, hydrogel, and PHMB dressings as instructed daily. She states continued improvement with decreasing wound size. States site continues to look good and is nearing closure. Reports the offloading padding continues to significantly help. Denies constitutional symptoms. Denies further complaints. Objective Data Objective Data Vital Signs: Vital Signs Temp Pulse Resp BP 97.5 F L 102 H 16 108/78 03/14/25 10:22 03/14/25 10:22 03/14/25 10:22 03/14/25 10:22 Physical Exam Const alert, oriented x3 and no apparent distress General Appearance: cooperative HEENT normocephalic Eyes General Eye: normal appearance of both eyes Neck General: normal visual inspection Lymph Lymphatic: no lymphadenopathy noted and no lymphedema noted Resp normal respiratory effort Cardio regular rate and regular rhythm Extremity no calf tenderness Extremity Narrative: Left lower extremity: Vascular: DP and PT pulses palpable. CFT is less than 3 seconds to digits. Normal temperature gradient. Hair growth is present to digit. Neurologic: Epicritic sensation intact without focal deficit noted. Musculoskeletal: Muscle strength 5/5 and age-appropriate. Full range of motion of the ankle joint, STJ, MTJ, and first MTPJ appreciated. No pain to palpation of calf. Transmetatarsal amputation noted. There is some pain to palpation about the ulcerative site of the medial calcaneus. Dermatologic: Cicatrix appreciated at the transmetatarsal amputation stump. There is a full-thickness ulceration noted to the plantar medial aspect of the calcaneus with healthy granular layer. There is some dried crusting at the wound margins secondary to continued serosanguineous drainage. No purulent drainage, no malodor noted. No signs of infection. Skin no rashes or lesions noted and skin turgor normal Neuro moves all extremities Debridement Note Debridement Note Wound debrided: Left medial calcaneus Laterality: Left Wound Grade/Stage: Bhandari stage I Type of Debridement: Excisional debridement Anesthesia Used: 5% Lidocaine Gel Depth: Down to and including healthy tissue and in the subcutaneous layer Percentage of wound debrided: 100 Instrument Used: - (1 mm curette) Tissue Removed: Fibrous, devitalized subcutaneous, biofilm, slough Severity: Fat Layer Exposed Amount of bleeding with debridement: Mild Bleeding Controlled with: Compression and gauze Patient tolerated procedure: Patient tolerated procedure well Post-Debridement Measurements and Additional Note: Post-Debridement Measurements/Treatment - Nurse 1 - General Ulcer Assessment Start: 02/28/25 09:54 Freq: Status: Active Protocol: TARAH.OTTO Activity Type Activity Date Activity User E-sign Co-sign Detail Recorded Client Recorded Date Recorded By Document 02/28/25 09:54 DL [id number] 02/28/25 10:02 DL Document 03/07/25 10:16 DL [id number] 03/07/25 10:23 DL Document 03/14/25 10:22 DL [id number] 03/14/25 10:26 DL 02/28/25 03/07/25 03/14/25 09:54 10:16 10:22 - Today's Visit Information Type of service Follow-up Visit Follow-up Visit Follow-up Visit (Physician/CORE MOUNTER (Physician/CORE MOUNTER (Physician/CORE MOUNTER ) ) ) Arrival Mode Ambulatory Ambulatory Ambulatory Transfer Assistance None None None Patient Identification Verified (Name & Yes Yes Yes ) Patient Requires Transmission-Based No No No Precautions Vital Signs Temperature (97.8 F-99.1 F) 96.9 F L 96.7 F L 97.5 F L Temperature Source Temporal Temporal Temporal Pulse Rate (60-100) 98 125 H 102 H Pulse Location Monitor Monitor Monitor Respiratory Rate (12-18) 16 16 16 Respiratory rate source Observation Observation Observation Blood Pressure (90/60-120/80) 106/80 90/66 108/78 Blood Pressure Mean (mm Hg) 88 74 88 Source Monitor Monitor Monitor History Since Last Visit- (Skip if this is Patient's initial visit) Have you changed medications since your No No No last visit? Any new allergies or adverse reactions No No No Had a fall/change in ADL's that may No No No increase risk of falls Signs or symptoms of abuse and/or No No No neglect since last visit Have you been in the hospital since your No No No last visit? Has dressing in place as prescribed Yes Yes Yes Has compression in place as prescribed Yes Yes Yes Has offloadiing in place as prescribed Yes Yes Yes Experienced any changes in pain level or No No No management Left Footwear Surgical Shoe with pressure relief insole Pain Scale: 0-10 Numeric Is Patient Pain Free? Yes Yes Yes WC - Nurse 1 - General Ulcer Measurement Start: 02/28/25 09:54 Freq: Status: Active Protocol: Activity Type Activity Date Activity User E-sign Co-sign Detail Recorded Client Recorded Date Recorded By Document 02/28/25 09:54 DL [id number] 02/28/25 10:02 DL Document 03/07/25 10:16 DL [id number] 03/07/25 10:23 DL Document 03/14/25 10:22 DL [id number] 03/14/25 10:26 DL 02/28/25 03/07/25 03/14/25 09:54 10:16 10:22 Wound Center Nurse 1 #1 L Heel -Current Size (cm) - Length 1.6 1.1 0.5 -Current Size (cm) - Width 0.6 0.5 0.2 -Current Size (cm) - Depth 0.1 0.1 0.1 -Total Square Cm 0.96 0.55 0.10 -Photo Taken Yes Yes Yes -Exudate Amt Medium Small None Present -Exudate Type Serosanguineous Serosanguineous -Wound Margin Thickened Distinct, Thickened Outline Attached -Granulation Amt Medium (34-66%) Small (1-33%) Small (1-33%) -Granulation Quality Pale,Bloomsbury Pale,Bloomsbury Bloomsbury -Necrosis Amt Medium (34-66%) Small (1-33%) Small (1-33%) -Necrotic Tissue Type Adherent Slough Adherent Slough Adherent Slough -Structure Exposed N/A N/A -Texture (Bryanna-wound Skin Appearance) Scarring Scarring Scarring -Moisture (Bryanna-wound Skin Appearance) Dry/Scaly No Abnormality Dry/Scaly -Color (Bryanna-wound Skin Appearance) No Abnormality No Abnormality No Abnormality -Temperature (Bryanna-wound Skin No Abnormality No Abnormality No Abnormality Appearance) (Pt Warm) (Pt Warm) (Pt Warm) -Tenderness on Palpation (Bryanna-wound No No No Skin Appearance) -Ulcer Cleansing Soap and Water Soap and Water Soap and Water -Foul Odor after Cleansing No No No -Anesthetic Used 5% Lidocaine 5% Lidocaine 5% Lidocaine Gel Gel Gel WC - Nurse 2 - General Ulcer CM Notes Start: 02/28/25 09:54 Freq: Status: Active Protocol: Activity Type Activity Date Activity User E-sign Co-sign Detail Recorded Client Recorded Date Recorded By Document 02/28/25 10:19 [facility] [id number] 02/28/25 10:30 [facility] Document 03/07/25 10:47 [facility] [id number] 03/07/25 10:52 [facility] Document 03/14/25 10:40 [facility] [id number] 03/14/25 10:42 [facility] 02/28/25 03/07/25 03/14/25 10:19 10:47 10:40 Wound Center Nurse 2 #1 L Heel -Time 10:20 10:47 10:40 -Correct Patient Yes Yes Yes -Correct Side, Site, Position Yes Yes Yes -Correct Procedure Yes Yes Yes -Procedure Performed Yes Yes Yes -Type of Procedure Debridement Debridement Debridement -Clinical Debridement Subcutaneous Subcutaneous Subcutaneous -Tissue Removed Subcutaneous Subcutaneous Subcutaneous -Post Debridement (cm) - Length 1.4 0.5 0.1 -Post Debridement (cm) - Width 0.9 1 0.5 -Post Debridement (cm) - Depth 0.1 0.1 0.1 -Total Square (Post) (cm) 1.26 0.5 0.05 -Area of Debridement (cm) - Length 1.4 0.5 0.1 -Area of Debridement (cm) - Width 0.9 1 0.5 -Total Square (Area) (cm) 1.26 0.5 0.05 -Tunneling No No No -Undermining/Tunneling No No No -Circular Undermining No No No -Wound/Ulcer Outcome Not Healed Not Healed Not Healed -Ulcer Cleansing Rinsed/ Rinsed/ Rinsed/ Irrigated with Irrigated with Irrigated with Saline Saline Saline -Foul Odor after Cleansing No No No -Bioengineered Tissue No No No -Bleeding Controlled with Pressure Pressure Pressure -Treatment Response Procedure Procedure Procedure Tolerated Well Tolerated Well Tolerated Well -Debridement - Subq, 1st 20sq cm Yes Yes Yes Pain Scale: 0-10 Numeric Is Patient Pain Free? Yes Yes Yes - Nurse 3 - General Ulcer D/C NN Start: 02/28/25 09:54 Freq: Status: Active Protocol: Activity Type Activity Date Activity User E-sign Co-sign Detail Recorded Client Recorded Date Recorded By Document 02/28/25 10:42 DL [id number] 02/28/25 10:44 DL Document 03/07/25 11:18 ML [id number] 03/07/25 11:20 ML Document 03/14/25 11:06 IA [id number] 03/14/25 11:08 IA 02/28/25 03/07/25 03/14/25 10:42 11:18 11:06 Wound Care Center Nurse 3 #1 L Heel -Ulcer Cleansing Rinsed/ Rinsed/ Irrigated with Irrigated with Saline Saline -Foul Odor after Cleansing No No -Negative Pressure Wound Therapy N/A -Primary Dressing Applied AMD Dressing AMD Dressing 4x4,C Hydrogel, 4x4 Collagen Powder -Other Dressing Purachol/ LONG hydrogel, amd hydrogel/AMD/ pad, abd PAD -Primary Dressing Covered/Secured with Dry Gauze & Dry Gauze & Dry Gauze & Roll Gauze, Roll Gauze, Roll Gauze, Secured with Secured with Secured with Tape Tape Tape -Other Covering ABD/LONG -AMD Dressing 4x4 1 1 -Collagen Powder 1 -Hydrogel 0 RLE -Compression Wrap Long Wrap Treatment Response Procedure Tolerated Well Pain Scale: 0-10 Numeric Is Patient Pain Free? 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 Collagen powder moistened with hydrogel and PHMB dressing applied to the ulcerative site and dressed with dry sterile dressing. She is to change dressing daily. There is continued reduction in the size versus her previous visit and is nearing closure. Ulceration is noted to be healing well with current treatment regiment. Discussed nonweightbearing status of the left lower extremity. Insurance has denied knee scooter and she cannot afford to rent or pay [id number]. She does have a walker and I have suggested she return to use of the walker with her surgical shoe for the nonweightbearing status. However due to her currently ambulating with surgical shoe additional felt offloading padding was placed about the heel over top of the PHMB foam dressing to allow the ulcerative site to float inside of the dressing. This has proven to work well leading to improvement in her ulceration size. Discussed continued adequate protein intake to aid in wound healing. Tacho supplementation was also recommended. Ulceration is secondary to acute ischemic event in relation to her previous abd ominal surgery. Discussed signs and symptoms of infection. Discussed if she notices increasing redness around the ulcerative site that moves up the leg, purulent drainage from the wound site, increasing foul odor from the wound site, or if she experiences fever greater than 101 degree accompanied by nausea, vomiting, chills that these are signs of a progressing infection and she should report to the ED for IV antibiotics and further evaluation. She is understanding of this. The following work up and care recommendations were made: Dressing: Collagen powder, hydrogel, PHMB foam, felt offloading padding and dry sterile dressing. Change dressing daily. Wash: Soap and water Tissue growth optimization: Collagen powder and hydrogel and PHMB foam Offload: Remain nonweightbearing to the left lower extremity with assistance of walker Vascular: DP and PT pulses palpable. Adequate cap fill to digits. Vascular status is not impacting healing however ulceration is secondary to an acute thrombotic event and she is currently on anticoagulant therapy. Edema: None Infection: No signs of infection Pain: Continue extra strength Tylenol for discomfort as she is currently on anticoagulant therapy. Host factors: Acute ischemic event, otherwise no factors to impede healing. I answered all the patient's questions. To return to the wound healing center in 1 week or call sooner if the patient has any questions or concerns.
--- NOTE | 2025-03-26 08:24 | WC ---
Dr. Fonseca transfers care of this patient over to Dr. Luna as of 03/21/25
== END 2025-03-26 23:59 | disposition home or self-care (01) ==
LOC: WC 10:00
PROVIDERS: PCP Student in an Organized Health Care Education/Training Program; Referring Provider Podiatrist Foot & Ankle Surgery; Visit Provider Student in an Organized Health Care Education/Training Program
DX: L97.422 Non-pressure chronic ulcer of left heel and midfoot with fat layer exposed (principal); Z89.432 Acquired absence of left foot; M79.672 Pain in left foot
CPT/HCPCS: 11042

== ENCOUNTER 2025-05-24 10:52 | Emergency (ER) | payer MEDICAID, SELFPAY ==
[2025-05-24 10:53] VITALS: BP 126/93; PULSE 102; RESP 16; TEMP 36.8; O2SAT 98; BMI 31.4
--- NOTE | 2025-05-24 11:05 | EX.ED.DYSGE1 ---
HPI History of Present Illness Chief Complaint: General Illness Informant: patient Onset/Context/Timing Onset: Yesterday Context: Gradual Onset Timing: Continuous Quality: Cramping Location: Hands and feet Worsened by: Nothing Relieved by: Nothing Narrative Narrative: Patient presents with anxiety and possible hypokalemia. Patient states she has a history of hypokalemia. Patient states she has noted some cramping in her hands and feet. Patient states she usually gets this when she gets low on her potassium. Patient admits to some nausea and vomiting. Patient denies any diarrhea. Patient denies any melena or hematochezia. Patient denies any hematemesis or coffee-ground emesis. Patient states nothing makes her symptoms any better and nothing makes them worse. Patient denies any fevers or chills. Patient denies any chest pain or shortness of breath. Patient denies any palpitations. 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 Abdominal bloating Flatulence Depression Former smoker Ischemic necrosis of toe Sepsis Hx of blood clots Diarrhea Anxiety Tobacco use Borderline personality disorder Obesity Bipolar disorder Home Medications Medication Instructions Recorded Last Taken Type escitalopram oxalate 20 mg tablet 30 mg PO DAILY depression 04/27/22 05/23/25 History omeprazole 40 mg capsule,delayed 40 mg PO DAILY gerd 06/20/23 05/23/25 History release Lactobacillus acidoph-L.bulgaricus 2 tab PO QHS supplement 05/24/25 Unknown History 1 million cell tablet (Floranex) apixaban 5 mg tablet (Eliquis) 5 mg PO BID heart 05/24/25 05/24/25 History dicyclomine 10 mg capsule 10 mg PO TID gas/bloating 05/24/25 05/24/25 History doxepin 10 mg capsule 10 mg PO DAILY pain 05/24/25 05/23/25 History lurasidone 40 mg tablet 40 mg PO QHS mood 05/24/25 05/23/25 History olanzapine 10 mg tablet 10 mg PO QHS anti psychotic 05/24/25 05/23/25 History potassium chloride 20 mEq 60 meq PO DAILY k+ replace 05/24/25 05/24/25 History tablet,extended release(part/cryst) Allergy/AdvReac Type Severity Reaction Status Date / Time acetaminophen (From Percocet) AdvReac Abd Verified 05/24/25 10:54 cramps/diarrhea hydrocodone (From Vicodin) AdvReac Abd Verified 05/24/25 10:54 cramps/diarrhea oxycodone (From Percocet) AdvReac Abd Verified 05/24/25 10:54 cramps/diarrhea Family History Other Heart disease Surgical History History of creation of ostomy Hx of cholecystectomy H/O section History of carpal tunnel surgery Social History Smoking Status: Former smoker substance use type: does not use ROS ROS ED Constitutional Constitutional ED: Denies chills or fever(s) Eyes Eyes: Denies blurry vision or change in vision ENT ENT ED: Denies rhinorrhea or sore throat Cardiovascular Cardiovascular: Denies chest pain or palpitations Respiratory/Chest Respiratory/Chest: Denies cough or dyspnea Gastrointestinal Gastrointestinal: Reports nausea and vomiting; Denies diarrhea or melena Genitourinary Genitourinary ED: Denies dysuria or hematuria Musculoskeletal Musculoskeletal: Denies back pain or neck pain Integumentary Denies abscess or rash Neurologic Neurologic: Denies headache(s) or weakness Allergic/Immunologic Allergic/Immunologic ED: Denies mouth swelling or urticaria EXAM Physical Exam Const Vital Signs: 05/24/25 10:53 05/24/25 11:15 05/24/25 12:52 Temperature 98.2 F Temperature Source Oral Pulse Rate 102 H 57 L Respiratory Rate 16 17 Respiratory Effort Normal Respiratory Pattern Normal Blood Pressure 126/93 H 123/95 H Blood Pressure Mean 104 104 Pulse Ox 98 100 Oxygen Delivery Method Room Air 05/24/25 14:00 Temperature Temperature Source Pulse Rate 70 Respiratory Rate 16 Respiratory Effort Respiratory Pattern Blood Pressure 119/86 H Blood Pressure Mean 97 Pulse Ox 98 Oxygen Delivery Method Positive well nourished and well developed General Appearance ED: well developed and NAD HEENT Reports moist mucous membranes Neck supple and no JVD Resp normal respiratory effort and clear to auscultation bilaterally Cardio regular rate and regular rhythm GI non-tender and non-distended Palpation: soft Neuro oriented x3, CN's II-XII intact bilaterally and no sensory deficits noted Sensorium / Orientation: alert Motor Exam: strength 5/5 throughout Psych mental status grossly normal MDM MDM MDM Narrative Medical decision making narrative: Differential diagnosis includes dehydration, electrolyte abnormality, and anxiety. CBC will be obtained to assess for leukocytosis and anemia. Basic metabolic profile will be obtained to assess for electrolyte abnormality and renal function. Lab Data Attestation: I reviewed the patient's lab results. Lab results narrative: CBC was reviewed and was within normal limits. Basic metabolic profile was reviewed. Potassium was low at 2.3 and calcium was low at 5.0. The remainder was essentially within normal limits. Labs: Laboratory Results - last 24 hr 05/24/25 11:25 WBC 11.0 RBC 4.40 Hgb 12.9 Hct 38.0 MCV 86.4 MCH 29.3 MCHC 33.9 RDW Std Deviation 45.5 H RDW Coeff of Chris 14.3 Plt Count 472 H MPV 10.0 Immature Gran % (Auto) 0.300 Neut % (Auto) 63.3 Lymph % (Auto) 27.2 Elliott % (Auto) 8.1 Eos % (Auto) 0.5 Baso % (Auto) 0.6 Absolute Neuts (auto) 7.0 Absolute Lymphs (auto) 2.99 Nucleated RBC % 0 Sodium 141 Potassium 2.3 L* Chloride 97 L Carbon Dioxide 21.7 Anion Gap 23 H BUN 4 Creatinine 1.24 H Estim Creat Clear Calc 69.21 Est GFR (MDRD) Non-Af 56 L BUN/Creatinine Ratio 3.2 L Glucose 95 Calcium 5.0 L* Treatment and Re-Evaluation :: Patient was given a dose of Ativan here. Patient was given a dose of IV potassium and oral potassium. Patient was also given a dose of calcium gluconate. Patient was feeling better on reevaluation. Patient was instructed to continue her potassium supplements as prescribed. Patient was instructed to follow-up with her primary care physician in 3 to 5 days for reevaluation. Patient understood and was agreeable with plan. All questions were answered. Discharge Plan Triage Chief Complaint: General Illness ED Provider: Joshua Sepulveda Dx/Rx/DC Orders Clinical Impression: Hypokalemia, Hypocalcemia Instructions: ED Hypokalemia, ED Hypocalcemia (Adult) Prescriptions: No Action escitalopram oxalate 20 mg tablet 30 mg PO DAILY omeprazole 40 mg capsule,delayed release(DR/EC) 40 mg PO DAILY olanzapine 10 mg tablet 10 mg PO QHS doxepin 10 mg capsule 10 mg PO DAILY dicyclomine 10 mg capsule 10 mg PO TID Lactobacillus acidoph-L.bulgar [Floranex] 1 million cell tablet 2 tab PO QHS Patient Comments: pt states she has not yet started taking lurasidone 40 mg tablet 40 mg PO QHS Eliquis 5 mg tablet 5 mg PO BID potassium chloride 20 mEq Tablet,Er Particles/Crystals 60 meq PO DAILY Patient Comments: pt ststes dr increased dose to 3 tabs daily Primary Care Provider: Fredrick Boland Referrals: Fredrick Boland DO [Primary Care Provider, Medical] - 3-5 Days Print Language: Nauruan Disposition Disposition: Home, Self Care
[2025-05-24 11:31] LABS: Hematocrit 38.0 % (37-47); Hemoglobin 12.9 g/dL (12.0-15.0); Immature Granulocytes Count 0.030 X10^3/uL (0.0-0.0); Mean Corp Hgb Conc 33.9 g/dL (32-36); Mean Corpuscular Volume 86.4 fL (81-99); Mean Platelet Vol. 10.0 fl (6.2-12.0); NRBC Flagged by Analyzer 0 % (0-5); Platelet Count 472 K/mm3 (150-450); RBC Distribution Width CV 14.3 % (11.6-14.6); RBC Distribution Width SD 45.5 fl (35.1-43.9); Red Blood Count 4.40 M/mm3 (4.2-5.4); White Blood Count 11.0 K/mm3 (4.4-11.0)
--- OUTSIDE RECORDS SUMMARY | 2025-05-24 12:00 | XMS RPT_ITS | CCD ---
Author Organization [facility] Care Team Providers Care Doctor Of Optometry Name Role Phone Zakiya George Unavailable UnavailZakiya Alfaro Unavailable UnavailSANDRA Anand Unavailable Unavailable PROVIDER, UNKNOWN Unavailable Unavailable No, PCP Unavailable Unavailable Cosme Boland DO Primary Care Provider Cosme Boland DO Primary Care Provider Cosme Boland DO Primary Care Provider Cosme Boland DO Primary Care Provider Ariella Cortes RN Unavailable Unavailable ESA GUILLEN Attending Unavailable COSME BOLAND Primary Care Unavailable Cosme Boland DO Primary Care Provider Rangel GERIATRIC SOCIAL WORK PROFESSOR.Yesenia HARRINGTON Unavailable [facility] GERIATRIC SOCIAL WORK PROFESSOR.Xochilt HARRINGTON Unavailable Ariella Cortes RN Unavailable Unavailable Juan Carlos GERIATRIC SOCIAL WORK PROFESSOR.Yesenia HARRINGTON Unavailable Maggie Putnam MD Unavailable Provider Larry VO Unavailable Unavailable MICHAEL ELLIS Admitting UnavailHERBERT Guerra III (HIST) Referring Unavailable WILLIS FINCH Attending Unavailable YOHANA MCCARTHY III Consulting Unavailable COSME BOLAND Primary Care Unavailable ROSA MARIA BULLOCK Admitting Unavailable DIANDRA MARTINEZ Attending Unavailable ALEXANDRIA BENITEZ Consulting Unavailable COSME BOLAND Primary Care Unavailable FARZANEH DELATORRE Referring Unavailab MAGGIE Pratt MD Referring Unavailable [...] Unavailable MAGGIE PUTNAM MD Referring Unavailable FARZANEH DELATORRE JR Admitting Unavailable MAGGIE PUTNAM MD Consulting Unavailable FARZANEH DELATORRE JR Attending Unavailable FARZANEH DELATORRE JR Primary Care Unavailable PROVIDER, UNKNOWN Consulting Unavailable PROVIDER, UNKNOWN Consulting Unavailable HERBERT GANDHI Admitting Unavailable MAGGIE PUTNAM MD Referring Unavailable MAGGIE PUTNAM MD Consulting Unavailable HERBERT GANDHI Attending Unavailable HERBERT GANDHI Primary Care Unavailable PROVIDER, UNKNOWN Consulting Unavailable PROVIDER, UNKNOWN Consulting Unavailable Cosme Boland DO Primary Care Provider Lee Lou MD Unavailable [place] GERIATRIC SOCIAL WORK PROFESSOR.MANUFACTURING MILLWRIGHT, Ed Dallas Unavailable Leuschen [facility], Keesha Unavailable Crnonaomy [facility], Mounika Unavailable Stephie Montoya MD Unavailable Stephie Montoya MD Unavailable Chance Florentino RN Unavailable Unavaildarius Dey RN, Lamar Chávez Unavailable Unavailable Nilson VO, Kirit Unavailable Stephie Montoya MD Unavailable Stephie Montoya MD Unavailable Taras Sue Admitting Unavailable BolandCosme Primary Care Unavailable Joshua Hugo Attending Unavailable Taras Sue Consulting Unavailable Joshua Hugo Consulting Unavailable Ashley Rosen Consulting Unavailable Boland, Cosme Primary Care Unavailable Rosa Maria Cai Attending Unavailable Ashley Rosen Consulting Unavailable Ashley Rosen Admitting Unavailable Alok Arreaga Consulting Unavailable Rosa Maria Cai Consulting Unavailable Taras Sue Admitting Unavailable Donte Nunez Attending Unavailable Boland, Cosme Primary Care Unavailable Taras Sue Consulting Unavailable Donte Nunez Consulting Unavailable Ashley Rosen Attending Unavailable Donte Espinal Consulting Unavailable Donte Espinal Attending Unavailable Donte Espinal Admitting Unavailable Boland, Cosme Primary Care Unavailable Boland, Cosme Primary Care Unavailable Jag Thomas Attending Unavailable Boland, [place] Primary Care Unavailable Rosa Maria Cai Referring Unavailable Ailyn Robert Attending Unavailable Ashley Rosen Attending Unavailable Taras Sue Attending Unavailable Taras Sue Consulting Unavailable Taras Sue Attending Unavailable Joshua Nazario Attending Unavailable Boland, [place] Primary Care Unavailable Ailyn Robert Referring [facility]available [facility]available Taras Sue Attending Unavailable Taras Sue Consulting Unavailable Vinicius Sueolas F Admitting Unavailable Boland, Cosme Primary Care Unavailable Heraclio Palacio Attending Unavailable Yoseph Fonseca Attending Unavailable Boland, Cosme Primary Care Unavailable Suppan, Alok Referring Unavailable Yoseph Fonseca Attending Unavailable Boland, Cosme Primary Care Unavailable Whitley, Alok Referring Unavailable Boland, Cosme Primary Care Unavailable JAMI ARANA Attending Unavailable Yoseph Fonseca Attending Unavailable [facility] Unavailable Doloresan, Alok Referring Unavailable Boland, Cosme Primary Care Unavailable JAMI ARANA Referring Unavailable JAMI ARANA Attending Unavailable Donte Espinal Consulting Unavailable Donte Espinal Admitting Unavailable Boland, Cosme Primary Care Unavailable Taras Sue Attending Unavailable Taras Sue Admitting Unavailable Joshua Hugo Attending Unavailable Boland, Cosme Primary Care Unavailable Taras Sue Consulting Unavailable Joshua Hugo Consulting Unavailable Ashley Rosen Consulting Unavailable Taras Sue Consulting Unavailable Donte Nunez Attending Unavailable Boland, Cosme Primary Care Unavailable Vinicius Sueolas Kieran Admitting Unavailable Ashley Rosen Consulting Unavailable Rosa Maria Cai Attending Unavailable Ashley Rosen Admitting Unavailable Doloresan, Alok Consulting Unavailable Yoseph Fonseca Attending Unavailable Boland, Cosme Primary Care Unavailable Suppan, Alok Referring Unavailable Boland, Cosme Primary Care Unavailable JAMI ARANA Attending Unavailable JAMI ARANA Referring Unavailable Ed Saxena Attending Unavailable Ed Saxena J Referring Unavailable Boland, Cosme Primary Care Unavailable Boland, Cosme Primary Care Unavailable JAMI ARANA Referring Unavailable JAMI ARANA Attending Unavailable Boland, Cosme Primary Care Unavailable JAMI ARANA Attending Unavailable YASMEEN, JAMI Referring Unavailable Boland, Cosme Primary Care Unavailable Heraclio Palacio Attending Unavailable BOLAND DO, COSME Attending Unavailable BOLAND DO, COSME Primary Care Unavailable KARTHIK MALDONADO Attending Unavailable BOLAND, COSME L Primary Care Unavailable BOLAND, COSME L Primary Care Unavailable ODESSA, ED DALLAS Referring Unavailable CLAYTON GRANADOS Attending Unavailable BOLAND, COSME L Primary Care Unavailable ILA GRANADOSI J Referring Unavailable BOLAND, COSME L Primary Care Unavailable ODESSA ED DALLAS Attending Unavailable BOLAND, COSME L Primary Care Unavailable QUATROMONI, ALEJA Referring Unavailable BOLAND, COSME L Primary Care Unavailable NILSON, HERVEED Attending Unavailable BOLAND, COSME L Primary Care Unavailable ODESSA, ED DALLAS Attending Unavailable BOLAND, COSME L Primary Care Unavailable CLAYTON GRANADOS J Referring Unavailable RAJCLAYTON FABIAN Attending Unavailable BOLAND, COSME L Primary Care Unavailable QUATROMONI, ALEJA Referring Unavailable SANDRA RILEY Admitting Unavailable BOLAND, COSME L Primary Care Unavailable NILSON, KIRIT Attending Unavailable BOLAND, COMSE L Primary Care Unavailable ANGELA BLACKWOOD Attending Unavailable SELF Referring Unavailable BOLAND, COSME L Primary Care Unavailable ODESSA, ED DALLAS Referring Unavailable MARILINXOCHILT Attending Unavailable BOLAND, COSME L Primary Care Unavailable MARILIN, XOCHILT Referring Unavailable BOLAND, COSME L Primary Care Unavailable MARILIN, XOCHILT Referring Unavailable BOLAND, COSME L Primary Care Unavailable MARILIN, XOCHILT Attending Unavailable BOLAND, COSME L Primary Care Unavailable BOLAND, COSME L Primary Care Unavailable ILA GRANADOSI J Attending Unavailable MARILINXOCHILT HINKLE Attending Unavailable BOLAND, COSME L Primary Care Unavailable COSME BOLAND Primary Care Unavailable ED SAXENA Referring Unavailable CLAYTON GRANADOS Attending Unavailable COSME BOLAND Primary Care Unavailable BOLANDCOSME Primary Care Unavailable MARTÍN PENDLETON Attending Unavailable COSME BOLAND Primary Care Unavailable ED SAXENA Referring Unavailable COSME BOLAND Primary Care Unavailable COSME BOLAND Primary Care Unavailable HERACLIO PALACIO Referring Unavailable MEGAN OLIVER Attending Unavailable DELILAH CHAVES Admitting Unavailable BOLANDCOSME Primary Care Unavailable CLAYTON GRANADOS Referring Unavailable XOCHILT GASTON Attending Unavailable COSME BOLAND Primary Care Unavailable XOCHILT GASTON Referring Unavailable COSME BOLAND Primary Care Unavailable Allergies Allergy Classification Reported Allergen(s) Allergy Type Date of Onset Reaction(s) Facility (20 sources) Acetaminophen / HYDROcodone; Translations: [HYDROCODONE-ACETA MINOPHEN] [facility] ([facility] source) Acetaminophen / HYDROcodone Drug Allergy [facility] (1 source) HYDROcodone Drug Allergy [facility] Rep[facility] (1 source) Acetaminophen Drug Allergy 02-19-2025 [facility] Repository (1 source) HYDROcodone Drug Allergy 02-19-2025 [facility] Repository (1 source) oxyCODONE Drug Allergy 02-19-2025 [facility] Repository Medications Current Medications Medication Drug Class(es) Dates Sig (Normalized) Sig (Original) acetaminophen 325 mg oral tablet (12 sources) Start: 09-03-2024 End: 10-03-2024 take 2 tablets by mouth every six hours acetaminophen (TYLENOL) 325 mg tablet Take 2 tablets by mouth every 6 hours. 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 Then take 1 tablet (5 mg) by mouth twice daily for 23 days 74 tablet 03/01/2025 03/31/2025 Active escitalopram 20 mg oral tablet (20 sources) Serotonin Reuptake Inhibitor Start: 03-04-2025 End: 05-03-2025 take 2 tablets by mouth once daily escitalopram oxalate (LEXAPRO) 20 mg tablet Take 2 tablets by mouth once daily. 60 tablet 1 03/04/2025 05/03/2025 Active Start: 01-11-2025 End: 03-12-2025 take 1 tablet [...] once daily. Take 2 tablets by mo uth once daily. gabapentin 300 mg oral capsule (20 sources) Anti-epileptic Agent Start: 03-08-2025 End: 06-06-2025 take 1 capsule by mouth every twelve hours gabapentin (NEURONTIN) 300 mg capsule Take 1 capsule by mouth every 12 hours for 90 days. 60 capsule 2 03/08/2025 06/06/2025 Active Start: 12-20-2024 End: 12-31-2024 take 1 capsule [...] guidelines link. 1 each 10/11/2024 10/12/2024 Active loperamide hydrochloride 2 mg oral capsule (20 sources) Opioid Agonist Start: 02-23-2025 take 1 capsule by mouth every six hours as needed loperamide (IMODIUM) 2 mg cap(s) Take 2 mg by mouth four times a day as needed for diarrhea. 02/23/2025 Active Start: 10-26-2024 End: 02-23-2025 take 2 capsules by mouth three times daily loperamide (IMODIUM) 2 mg cap(s) Take 2 capsules by mouth three times a day. 180 capsule 3 10/26/2024 02/23/2025 Suspended Start: 09-03-2024 take 1 capsule by mo uth at bedtime loperamide (IMODIUM) 2 mg cap(s) Take 1 capsule by mouth before meals and at bedtime. 09/03/2024 Active metroNIDAZOLE 500 mg oral tablet (11 [...] (20 sources) Atypical Antipsychotic Start: 11-15-2024 End: 04-27-2025 take 1 tablet by mouth once daily at bedtime OLANZapine (ZYPREXA) 20 mg tablet Take 1 tablet by mouth daily at bedtime. 30 tablet 1 02/26/2025 04/27/2025 Active Start: 06-21-2024 End: 10-02-2024 take 1 [...] on above: Take 1 capsule by mo [facility] once daily. OTC NUTRITIONAL SUPPLEMENT [...] and after admin. Once a day Active microencapsulated potassium chloride 20 meq extended release oral tablet (20 sources) Start: 03-01-2025 take 3 tablets by mouth once daily potassium chloride ER (KLOR-CON) 20 mEq tablet Take 3 tablets by mouth once daily. 03/01/2025 Active Start: 10-26-2024 End: 03-01-2025 take 2 tablets by mouth once daily potassium chloride ER (KLOR-CON) 20 mEq tablet Take 2 tablets by mouth once daily. 02/23/2025 03/01/2025 Discontinued (Adjust Sig - Block E-Cancel) Start: 08-10-2024 End: 11-08-2024 take 2 tablets by mouth once potassium chloride 20 mEq TbER Indications: Hypokalemia Take 2 tablets by mouth every afternoon. 60 tablet 2 08/10/2024 11/08/2024 Suspended Start: 07-30-2024 take 2 tablets by mouth once p otassium chloride 20 mEq TbER Take 2 tablets by mouth every afternoon. 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 aspirin 81 mg chewable tablet [...] Comment on above: Take 1 capsule by [facility] once daily. codeine phosphate 2 mg/ml / [...] 1 tablet by nathan th once daily. Okay to skip placebo week [...] mouth twice daily with meals. 60 tablet 11/04/2021 05/18/2024 Discontinued (Discontinued by Patient) Comment [...] on above: Take 1 capsule by mo uth once daily. In addition to 40mg capsule for total of 60mg daily. Take 1 capsule by mo ut once daily. fluticasone propionate 0.05 mg/actuat metered [...] Take 1 tablet by nathan once daily. Take 1 tablet by nathan once daily for 14 days, THEN 2 tablets once daily. 10 ml lidocaine hydrochloride 10 mg/ml injection (1 source) Antiarrhythmic, Amide Local Anesthetic Start: 08-20-2024 End: 08-20-2024 2.5 mg (0.25 mL), INTRADERMAL, ONCE, 1 dose, On Tue08/20/24 at 1100 Start: 08-20-2024 End: 08-20-2024 2.5 mg (0.25 mL), INTRADERMA L, ONCE, 1 dose, On Tue08/20/24 at 1100 magnesium oxide 400 mg oral tablet (13 [...] 1 tablet by nathan th once daily. midodrine hydrochloride 5 mg oral [...] 8 hours as needed for nausea/vomiting. Active pantoprazole 40 mg delayed release oral tablet (20 sources) Proton Pump Inhibitor Start: 12-20-2024 End: 03-01-2025 take 1 tablet by mouth twice daily before mealtime, then take 4 tablets by mouth in the evening pantoprazole DR (PROTONIX) 40 mg tablet Take 1 tablet by mouth two times a day before meals at 6 am and 4 pm. 60 tablet 1 12/21/2024 11:01 AM EDT 12/20/2024 03/01/2025 Discontinued Start: 10-12-2024 End: 11-11-2024 take 1 tablet by mouth twice daily pantoprazole DR (PROTONIX) 40 mg tablet Take 1 tablet by mouth two times a day. 60 tablet 10/12/2024 Active End: 10-12-2024 take 1 tablet by mouth once daily pantoprazole DR (PROTONIX) 40 mg tablet Take 40 mg by mouth once daily. 10/12/2024 Discontinued potassium bicarbonate 25 meq effervescent oral tablet (13 sources) Start: 01-28-2025 End: 04-28-2025 take 1 tablet by mouth twice daily Potassium Bicarb-Citric Acid (KLOR-CON/EF) 25 mEq disintegrating tablet Indications: Short bowel syndrome, 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 , Malnutrition of moderate degree (HCC) , Hypokalemia Take 1 tablet by mouth two times a day. 60 tablet 2 01/28/2025 03/01/2025 Discontinued prazosin 2 mg oral capsule (20 sources) alpha-Adrenerg ic Frandy Start: 05-18-2024 End: 09-15-2024 take 1 [...] sources) Serotonin-1b and Serotonin-1d Receptor Agonist Start: 021 End: 022 take 1 tablet by mouth every two hours as needed rizatriptan (MAXALT INFANT TEACHER) 5 mg disintegrating tablet Indications: Ocular migraine [...] Classification Problem Date Documented Date Episodic/Chronic Acute cerebrovascular disease (4 sources) Cerebral infarction; Translations: [Other cerebral infarction due to occlusion or stenosis of small artery] Onset: 5 09-11-2024 Chronic Adjustment disorders (20 sources) Adjustment disorder with depressed mood; Translations: [Adjustment disorder with depressed mood] Onset: 7 06-22-2021 Chronic Administrative/social admission (2 sources) Stress; Translations: [Other specified problems related to [...] short bowel syndrome] Onset: 5 08-27-2024 Chronic Complications of surgical procedures or medical care (20 sources) Open wound of abdomen; Translations: [Open abdominal incision with drainage] Onset: 5 08-21-2024 Episodic Crushing injury or internal injury (1 source) [...] Translations: [Iron deficiency anemia, unspecified] Onset: Episodic Diabetes mellitus with complications (20 sources) Hyperglycemia due to diabetes mellitus; Translations: [Type 2 diabetes mellitus with hyperglycemia] Onset: 08-27-2024 Chronic Diabetes mellitus without complication (1 source) Type 2 diabetes mellitus without complications; Translations: [Type 2 diabetes mellitus without complications] Onset: 5 Chronic Diseases of white blood cells (1 source) Elevated white blood cell count, unspecified; Translations: [Leukocytosis, unspecified type] Onset: 5 Chronic Disorders of lipid metabolism (4 sources) Hyperlipidemia, unspecified; Translations: [Hyperlipidemia, unspecified] Onset: 5 Chronic Disorders usually diagnosed in infancy, childhood, [...] Translations: [Gastro-esophageal reflux disease without esophagitis] Onset: 5 Chronic Gastrointestinal hemorrhage (1 source) Gastrointestinal hemorrhage, unspecified; Translations: [Gastrointestinal hemorrhage, unspecified] Onset: 5 Episodic Genitourinary symptoms and ill-defined conditions (1 source) Other difficulties with micturition; Translations: [Other difficulties with micturition] Onset: 5 Episodic Malaise and fatigue (2 sources) Fatigue; Translations: [Other fatigue] Onset: 5 Episodic Menstrual disorders (1 source) Secondary amenorrhea; Translations: [Secondary amenorrhea] Onset: 5 Chronic Miscellaneous mental health disorders (4 sources) Insomnia disorder related to another mental disorder; Translations: [Insomnia due to other mental disorder] Onset: 5 05-20-2024 Chronic Miscellaneous mental health disorders (2 sources) Anxiety about body function or health; Translations: [...] unspecified] Onset: 6 Resolved: 5 10-29-2015 Chronic Open wounds of extremities (2 sources) Complete traumatic amputation of one left lesser toe, initial encounter; Translations: [Amputation of toe of left foot] Onset: Chronic Other aftercare (3 sources) Long-term current use of drug therapy; Translations: [Other termite control representative (current) drug therapy] 05-20-2024 Episodic Other aftercare (1 source) Wound ; Translations: [Encounter for other specified surgical aftercare] 09-19-2024 Episodic Other aftercare (2 sources) Surgical follow-up; Translations: [Encounter for removal of sutures] 09-19-2024 Episodic Other aftercare (1 source) Long-term current use of aspirin; Translations: [termite control representative (current) use of aspirin] 09-19-2024 Episodic Other aftercare (2 sources) Long-term current use of anticoagulant; Translations: [prison (current) use of anticoagulants] 09-19-2024 Episodic Other aftercare (2 sources) Other termite control representative (current) drug therapy; Translations: [Other termite control representative (current) drug therapy] Onset: 5 Episodic Other aftercare (1 source) prison (current) use of aspirin; Translations: [termite control representative (current) use of aspirin] Onset: 5 Episodic Other aftercare (5 sources) prison (current) use of anticoagulants; Translations: [prison (current) use of anticoagulants] Onset: 5 Episodic Other aftercare (1 source) prison (current) use of insulin; 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] Onset: Episodic Other aftercare (1 source) Removal [...] unspecified site] Episodic Other connective tissue disease (4 sources) Pain in left foot; Translations: [Pain in left foot] Onset: Episodic Other gastrointestinal disorders (1 source) Gastrostomy status; Translations: [Gastrostomy status] Onset: Chronic Other gastrointestinal disorders (2 sources) Ileostomy status; Translations: [Ileostomy status] Onset: Chronic Other gastrointestinal disorders (2 sources) Diarrhea, unspecified; Translations: [Intractable diarrhea] Onset: Episodic Other gastrointestinal disorders (1 source) Small bowel bacterial overgrowth syndrome; Translations: [Small intestinal bacterial overgrowth] 03-01-2025 Episodic Other gastrointestinal disorders (1 source) Flatulence; Translations: [Flatulence] Onset: Episodic Other gastrointestinal disorders (1 source) Abdominal distension (gaseous); Translations: [Abdominal bloating] Onset: Episodic Other gastrointestinal disorders (1 source) Functional diarrhea; Translations: [Functional diarrhea] Onset: Episodic Other hematologic conditions (1 source) Protein electrophoresis abnormal; Translations: [Other specified abnormalities of plasma proteins] 10-02-2024 Episodic Other liver diseases (1 source) Abnormal levels of other serum enzymes; Translations: [Abnormal levels of other serum enzymes] Onset: Episodic Other lower respiratory disease (1 source) Productive cough ; Translations: [Productive cough] 08-16-2024 Episodic Other nervous system disorders (2 sources) Carpal tunnel syndrome, left upper limb; Translations: [Carpal tunnel syndrome, left upper limb] Onset: 8 Chronic Other nervous system disorders (20 sources) Carpal tunnel syndrome; Translations: [Carpal tunnel syndrome, unspecified upper limb] Onset: 7 10-12-2006 Chronic Other nervous system disorders (1 source) Difficulty in walking, not elsewhere classified; Translations: [Difficulty in walking, not elsewhere classified] Onset: 5 Chronic Other nervous system disorders (1 source) Phantom limb syndrome without pain; Translations: [Phantom limb syndrome without pain (HCC)] Onset: 5 Chronic Other nervous system disorders (1 source) Postoperative pain ; Translations: [Other acute postprocedural pain] 01-14-2025 Episodic Other non-traumatic joint disorders (1 source) [...] Chronic Other nutritional; endocrine; and metabolic disorders (2 sources) Hypomagnesemia; Translations: [Hypomagnesemia] Onset: 5 Chronic Other screening for suspected conditions (not mental disorders or infectious disease) (2 sources) Elevated C-reactive protein; Translations: [Elevated C-reactive protein (CRP)] Episodic Peripheral and visceral atherosclerosis (20 sources) Occlusion of artery; Translations: [Unspecified atherosclerosis] Onset: 5 Resolved: 5 08-20-2024 Chronic Phlebitis; thrombophlebitis and thromboembolism (10 sources) Deep venous thrombosis; Translations: [Acute embolism and thrombosis of unspecified deep veins of unspecified lower extremity] Onset: 5 03-01-2025 Episodic Pulmonary heart disease (1 source) Personal history of pulmonary embolism; Translations: [Personal history of pulmonary embolism] Onset: 5 Episodic Residual codes; unclassified (1 source) Restlessness and agitation; Translations: [Restless] Onset: 5 Chronic Residual codes; unclassified (1 source) Acquired absence of other specified parts of digestive tract; Translations: [Acquired absence of other specified parts of digestive tract] Onset: Episodic Spondylosis; intervertebral disc disorders; other back problems (2 sources) Spasm of back muscles; Translations: [Muscle spasm of back] Episodic Substance-related disorders (20 sources) Nicotine dependence, cigarettes, uncomplicated; Translations: [History of clinical finding in subject] Onset: 8 Resolved: 9 Chronic Unclassified (4 sources) NO SHOW Unclassified (1 source) APPOINTMENT CANCELLED 12-30-2023 Unclassified (3 sources) Acute lower limb ischemia 09-19-2024 Unclassified (1 source) Colonoscopy [employer] Consultant Onset: 5 11-08-2024 Unclassified (1 source) Long-term current use of drug therapy 01-11-2025 Unclassified (1 source) Acidosis, unspecified; Translations: [Acidosis, unspecified] Onset: 5 Unclassified (1 source) Elevation of levels of liver transaminase levels; Translations: [Elevation of levels of liver transaminase levels] Onset: 5 Unclassified (2 sources) 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; Translations: [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] Onset: 5 Unclassified (1 source) Short bowel syndrome, 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; Translations: [Short bowel syndrome, 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] Onset: 5 Unclassified (1 source) Acquired short bowel syndrome; Translations: [Acquired short bowel syndrome] Onset: 5 Past or Other Problems Problem Classification Problem Date Documented Da te Episodic/Chronic Abdominal pain (2 sources) Generalized abdominal pain; Translations: [Unspecified abdominal pain] Onset: 08-29-2024 Episodic Acute and unspecified renal failure (4 sources) Acute kidney failure, unspecified; Translations: [Acute kidney failure, unspecified] Onset: 10-09-2024 Episodic Conditions associated with dizziness or vertigo (1 source) Dizziness and giddiness; Translations: [Dizziness and giddiness] Onset: 08-14-2024 Episodic Deficiency and other anemia (2 sources) Anemia, unspecified; Translations: [Anemia, unspecified type] Onset: 08-07-2024 Episodic Diabetes mellitus without complication (20 sources) High hemoglobin A1c level; Translations: [Other abnormal glucose] Onset: 08-07-2024 08-07-2024 Episodic Fluid and electrolyte disorders (20 sources) Hypokalemia; Translations: [Hypokalemia] Onset: 08-28-2024 08-07-2024 Episodic Gangrene (20 sources) Gangrene of toe; Translations: [Gangrene, not elsewhere classified] Onset: 11-22-2024 11-29-2024 Episodic Immunizations and screening for infectious disease (20 sources) Lupus anticoagulant disorder; Translations: [Raised antibody titer] Onset: 11-29-2024 11-29-2024 Episodic Nutritional deficiencies (20 sources) Iron deficiency; Translations: [Iron deficiency] Onset: 10-29-2015 10-29-2015 Episodic Other aftercare (20 sources) Patient encounter status; Translations: [Other senior care (current) drug therapy] Onset: 08-21-2024 Episodic Other aftercare (20 sources) Drug therapy finding; Translations: [prison (current) use of anticoagulants] Onset: 08-20-2024 08-20-2024 Episodic Other aftercare (20 sources) Insulin dose changed; 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] Onset: 08-30-2024 08-31-2024 Episodic Other aftercare (2 sources) Encounter for therapeutic drug level monitoring; Translations: [Encounter for therapeutic drug level monitoring] Onset: 09-03-2024 Episodic Other circulatory disease (20 sources) Limb [...] Resolved: 10-26-2024 10-26-2024 Episodic Other gastrointestinal disorders (20 sources) High output ileostomy; Translations: [Other specified symptoms and signs involving the digestive system and abdomen] Onset: 12-01-2024 12-01-2024 Episodic Other gastrointestinal disorders (2 sources) Other specified symptoms and signs involving the digestive system and abdomen; Translations: [Other specified symptoms and signs involving the digestive system and abdomen] Onset: 11-05-2024 Episodic Other injuries and conditions due to external causes (2 sources) Traumatic compartment syndrome of left upper extremity, initial encounter; Translations: [Traumatic compartment syndrome of left upper extremity, init] Onset: 02-07-2018 Episodic Other nervous system disorders (20 sources) Acute postoperative pain; Translations: [Other acute postprocedural pain] Onset: 08-20-2024 08-20-2024 Episodic Other nervous system disorders (1 source) Other acute postprocedural pain; Translations: [Acute post-operative pain] Onset: 11-28-2024 Episodic Other nutritional; endocrine; and metabolic disorders (20 sources) Body mass index 30+ - obesity; Translations: [Obesity, unspecified] Onset: 10-29-2015 Resolved: 08-21-2024 10-29-2015 Chronic Other nutritional; endocrine; and metabolic disorders (20 sources) Unable to eat; Translations: [Other symptoms and signs concerning food and fluid intake] Onset: 08-21-2024 Resolved: 08-30-2024 08-21-2024 Episodic Other nutritional; endocrine; and metabolic disorders (20 sources) Feeding problem; Translations: [Feeding difficulties] Onset: 08-27-2024 08-27-2024 Episodic Peripheral and visceral atherosclerosis (20 sources) [...] unspecified] Onset: 08-24-2024 Resolved: 08-30-2024 08-24-2024 Episodic Residual codes; unclassified (2 sources) Other specified postprocedural states; Translations: [Other specified postprocedural states] Onset: 09-17-2024 Episodic Respiratory failure; insufficiency; arrest (adult) (20 sources) Ventilator finding; Translations: [Dependence on respirator [ventilator] status] Onset: 08-20-2024 Resolved: 08-23-2024 08-23-2024 Chronic Screening and history of mental health and substance abuse codes (2 sources) Personal history of nicotine dependence; Translations: [Encounter for screening for depression] Onset: 09-17-2024 Episodic Septicemia (except in labor) (3 sources) Sepsis, unspecified organism; Translations: [Sepsis, unspecified organism] Onset: 11-22-2024 Episodic Skin and subcutaneous tissue infections (20 sources) Soft tissue infection; Translations: [Local infection of the skin and subcutaneous tissue, unspecified] Onset: 12-04-2024 12-04-2024 Episodic Substance-related disorders (20 sources) Marijuana user; Translations: [Cannabis use, unspecified, uncomplicated] Onset: 08-24-2024 Resolved: 08-30-2024 Episodic Syncope (1 source) Syncope and collapse; Translations: [Syncope and collapse] Onset: 11-30-2024 Episodic Unclassified (3 sources) Patient encounter status 08-08-2024 Results Test Name Value Interpretation Reference Range Facility CNOVon 05-02-2025 CNOV Office Visit (SPAGWO ) DALY EVANS ([id number]) 1985 F CHT Date Time Provider Department 05/02/25 9:00 AM KARTHIK MALDONADO During your visit today, we recorded the following information about you: Pulse Respiration Normal [facility] Ova and Parasites 8623on OP Normal [facility] Comment on above: Performed By: #### M 600.5000 ####[facility] [address] [place], [place], [phone] Prothrombin Time w/INRon INR Normal [facility] Comment on above: Result Comment: Antoine sanches via OM: Order cancelled - Patient discharged Performed By: #### L 300.3900 ####[facility] [address] [place], [address] PROTIME Normal 11.7-14.9 [facility] Comment on above: Result Comment: Antoine sanches via OM: Order cancelled - Patient discharged Performed By: #### L 300.3900 ####[facility] [address] [place], [address] Prothrombin Time w/INRon INR Normal [facility] Comment on above: Result Comment: Canc elled via OM: Order cancelled - Patient discharged Performed By: #### L 300.3900 ####[facility] [address] [place], [address] PROTIME Normal 11.7-14.9 [facility] Comment on above: Result Comment: Canc elled via OM: Order cancelled - Patient discharged Performed By: #### L 300.3900 ####[facility] [address] [place], [address] Basic Metabolic Profile (BMP )on 02-23-2025 BUN/CRE UNABLE TO CALCULATE Low 10-20 [facility] Comment on above: Performed By: #### L 500.2500 ####[facility] [address] [place], [address] Calcium [Mass/Vol] 7.1 mg/dL Low 7.6-11.0 [facility] Comment on above: Performed By: #### L 500.2500 ####[facility] [address] [place], [address] Chloride [Moles/Vol] 109 mmol/L High 98-108 [facility] Comment on above: Performed By: #### L 500.2500 ####[facility] [address] [place], [address] CO2 [Moles/Vol] 25.8 mmol/L Normal 21.0-32.0 [facility] Comment on above: Performed By: #### L 500.2500 ####[facility] [address] [place], [address] Creatinine [Mass/Vol] 0.67 mg/dL Low 0.70-1.20 [facility] Comment on above: Performed By: #### L 500.2500 ####[facility] [address] [place], [address] ECRCL 123.02 ml/min Normal 50-250 [facility] Comment on above: Performed By: #### L 500.2500 ####[facility] [address] [place], [address] GAP 7 Normal 5-15 [facility] Comment on above: Performed By: #### L 500.2500 ####[facility] [address] [place], [address] GFR/1.73 sq M.predicted among non-blacks MDRD (S/P/Bld) [Vol rate/Area] 113 mL/min/{1.73_m2} Normal >60 [facility] Comment on above: Result Comment: mL/m in/1.73m2 CKD-EPI Creatinine Equation (2020) Performed By: #### L 500.2500 ####[facility] [address] [place], [address] Glucose [Mass/Vol] 136 mg/dL High 70-99 [facility] Comment on above: Performed By: #### L 500.2500 ####[facility] [address] [place], [address] Potassium [Moles/Vol] 3.2 mmol/L Low 3.3-5.1 [facility] Comment on above: Performed By: #### L 500.2500 ####[facility] [address] [place], [address] Sodium [Moles/Vol] 142 mmol/L Normal 133-145 [facility] Comment on above: Performed By: #### L 500.2500 ####[facility] [address] [place], [address] Urea nitrogen [Mass/Vol] mg/dL Low 4-19 [facility] Comment on above: Performed By: #### L 500.2500 ####[facility] [address] [place], [address] BUN/CRE 3.5 RATIO Low 10-20 [facility] Comment on above: Performed By: #### L 100.0100, L500.2500, L501.2300, L501.5200 ####[facility] [address] [place], [address] Calcium [Mass/Vol] 7.6 mg/dL Normal 7.6-11.0 [facility] Comment on above: Performed By: #### L 100.0100, L500.2500, L501.2300, L501.5200 ####[facility] [address] [place], [address] Chloride [Moles/Vol] 108 mmol/L Normal 98-108 [facility] Comment on above: Performed By: #### L 100.0100, L500.2500, L501.2300, L501.5200 ####[facility] [address] [place], [address] CO2 [Moles/Vol] 22.5 mmol/L Normal 21.0-32.0 [facility] Comment on above: Performed By: #### L 100.0100, L500.2500, L501.2300, L501.5200 ####[facility] [address] [place], [address] Creatinine [Mass/Vol] 0.69 mg/dL Low 0.70-1.20 [facility] Comment on above: Performed By: #### L 100.0100, L500.2500, L501.2300, L501.5200 ####[facility] [address] [place], [address] ECRCL 119.04 ml/min Normal 50-250 [facility] Comment on above: Performed By: #### L 100.0100, L500.2500, L501.2300, L501.5200 ####[facility] [address] [place], [address] GAP 11 Normal 5-15 [facility] Comment on above: Performed By: #### L 100.0100, L500.2500, L501.2300, L501.5200 ####[facility] [address] [place], [address] GFR/1.73 sq M.predicted among non-blacks MDRD (S/P/Bld) [Vol rate/Area] 112 mL/min/{1.73_m2} Normal >60 [facility] Comment on above: Result Comment: mL/m in/1.73m2 CKD-EPI Creatinine Equation (2020) Performed By: #### L 100.0100, L500.2500, L501.2300, L501.5200 ####[facility] [address] [place], [address] Glucose [Mass/Vol] 112 mg/dL High 70-99 [facility] Comment on above: Performed By: #### L 100.0100, L500.2500, L501.2300, L501.5200 ####[facility] [address] [place], [address] Potassium [Moles/Vol] 2.9 mmol/L Low 3.3-5.1 [facility] Comment on above: Performed By: #### L 100.0100, L500.2500, L501.2300, L501.5200 ####[facility] [address] [place], [address] Sodium [Moles/Vol] 141 mmol/L Normal 133-145 [facility] Comment on above: Performed By: #### L 100.0100, L500.2500, L501.2300, L501.5200 ####[facility] [address] [place], [address] Urea nitrogen [Mass/Vol] 2 mg/dL Low 4-19 [facility] Comment on above: Performed By: #### L 100.0100, L500.2500, L501.2300, L501.5200 ####[facility] [address] [place], [address] CBC W/Diff, Automatedon 08-3 0-5 Absolute Lymph 1.51 X10 3/uL Normal 0.83-4.51 [facility] Comment on above: Performed By: #### L 100.0100, L500.2500, L501.2300, L501.5200 ####[facility] [address] [place], [address] Absolute Neut 3.3 X10 3/uL Normal 2.0-7.7 [facility] Comment on above: Performed By: #### L 100.0100, L500.2500, L501.2300, L501.5200 ####[facility] [address] [place], [address] Basophils/100 WBC (Bld) 0.6 % Normal 0-1 [facility] Comment on above: Performed By: #### L 100.0100, L500.2500, L501.2300, L501.5200 ####[facility] [address] [place], [address] Eosinophils/100 WBC (Bld) 2.6 % Normal 0-5 [facility] Comment on above: Performed By: #### L 100.0100, L500.2500, L501.2300, L501.5200 ####[facility] [address] [place], [address] Erythrocyte distribution width (RBC) [Ratio] 14.6 % Normal 11.6-14.6 [facility] Comment on above: Performed By: #### L 100.0100, L500.2500, L501.2300, L501.5200 ####[facility] [address] [place], [address] Hematocrit (Bld) [Volume fraction] 31.3 % Low 37-47 [facility] Comment on above: Performed By: #### L 100.0100, L500.2500, L501.2300, L501.5200 ####[facility] [address] [place], [address] Hemoglobin (Bld) [Mass/Vol] 10.2 g/dL Low 12.0-15.0 [facility] Comment on above: Performed By: #### L 100.0100, L500.2500, L501.2300, L501.5200 ####[facility] [address] [place], [address] IG% 0.200 Normal 0.0-0.9 [facility] Comment on above: Result Comment: IG% - Immature Granulocytes (promyelocytes, myelocytes andmetamyelocytes) > 1% indicates that a LEFT SHIFT is Present. Performed By: #### L 100.0100, L500.2500, L501.2300, L501.5200 ####[facility] [address] [place], [address] Lymphocytes/100 WBC (Bld) 28.3 % Normal 19-41 [facility] Comment on above: Performed By: #### L 100.0100, L500.2500, L501.2300, L501.5200 ####[facility] [address] [place], [address] MCH (RBC) [Entitic mass] 27.3 pg Normal 27.0-32.0 [facility] Comment on above: Performed By: #### L 100.0100, L500.2500, L501.2300, L501.5200 ####[facility] [address] [place], [address] MCHC (RBC) [Mass/Vol] 32.6 g/dL Normal 32-36 [facility] Comment on above: Performed By: #### L 100.0100, L500.2500, L501.2300, L501.5200 ####[facility] [address] [place], [address] MCV (RBC) [Entitic vol] 83.7 fL Normal 81-99 [facility] Comment on above: Performed By: #### L 100.0100, L500.2500, L501.2300, L501.5200 ####[facility] [address] [place], [address] Monocytes/100 WBC (Bld) 7.5 % Normal 0-10 [facility] Comment on above: Performed By: #### L 100.0100, L500.2500, L501.2300, L501.5200 ####[facility] [address] [place], [address] Neutrophils/100 WBC (Bld) 60.8 % Normal 47-70 [facility] Comment on above: Performed By: #### L 100.0100, L500.2500, L501.2300, L501.5200 ####[facility] [address] [place], [address] Nucleated RBC (Bld) [#/Vol] 0 10*3/uL Normal 0-5 [facility] Comment on above: Performed By: #### L 100.0100, L500.2500, L501.2300, L501.5200 ####[facility] [address] [place], [address] Platelet mean volume (Bld) [Entitic vol] 9.4 fL Normal 6.2-12.0 [facility] Comment on above: Performed By: #### L 100.0100, L500.2500, L501.2300, L501.5200 ####[facility] [address] [place], [address] Platelets (Bld) [#/Vol] 297 10*3/uL Normal 150-450 [facility] Comment on above: Performed By: #### L 100.0100, L500.2500, L501.2300, L501.5200 ####[facility] [address] [place], [address] RBC (Bld) [#/Vol] 3.74 10*6/uL Low 4.2-5.4 [facility] Comment on above: Performed By: #### L 100.0100, L500.2500, L501.2300, L501.5200 ####[facility] [address] [place], [address] RDW SD 44.8 fl High 35.1-43.9 [facility] Comment on above: Performed By: #### L 100.0100, L500.2500, L501.2300, L501.5200 ####[facility] [address] [place], [address] WBC (Bld) [#/Vol] 5.3 10*3/uL Normal 4.4-11.0 [facility] Comment on above: Performed By: #### L 100.0100, L500.2500, L501.2300, L501.5200 ####[facility] [address] [place], [address] Discharge Instructionon 08-3 Discharge Instruction Normal [facility] Magnesiumon 02-23-2025 Magnesium [Mass/Vol] 1.6 mg/dL Normal 1.5-2.2 [facility] Comment on above: Performed By: #### L 100.0100, L500.2500, L501.2300, L501.5200 ####[facility] [address] [place], [address] Phosphoruson 02-23-2025 Phosphate [Mass/Vol] 3.4 mg/dL Normal 2.7-4.5 [facility] Comment on above: Performed By: #### L 100.0100, L500.2500, L501.2300, L501.5200 ####[facility] [address] [place], [address] Prothrombin Time w/INRon INR Coag (PPP) [Relative time] 1.7 {INR} Normal [facility] Comment on above: Performed By: #### L 300.3900 ####[facility] [address] [place], [address] PT Coag (PPP) [Time] 20.0 s High 11.7-14.9 [facility] Comment on above: Performed By: #### L 300.3900 ####[facility] [address] [place], [address] Basic Metabolic Profile (BMP )on 02-22-2025 BUN/CRE UNABLE TO CALCULATE Low 10-20 [facility] Comment on above: Performed By: #### L 500.2500 ####[facility] [address] [place], [address] Calcium [Mass/Vol] 7.9 mg/dL Normal 7.6-11.0 [facility] Comment on above: Performed By: #### L 500.2500 ####[facility] [address] [place], [address] Chloride [Moles/Vol] 109 mmol/L High 98-108 [facility] Comment on above: Performed By: #### L 500.2500 ####[facility] [address] [place], [address] CO2 [Moles/Vol] 25.1 mmol/L Normal 21.0-32.0 [facility] Comment on above: Performed By: #### L 500.2500 ####[facility] [address] [place], [address] Creatinine [Mass/Vol] 0.77 mg/dL Normal 0.70-1.20 [facility] Comment on above: Performed By: #### L 500.2500 ####[facility] [address] [place], [address] ECRCL 106.68 ml/min Normal 50-250 [facility] Comment on above: Performed By: #### L 500.2500 ####[facility] [address] [place], [address] GAP 11 Normal 5-15 [facility] Comment on above: Performed By: #### L 500.2500 ####[facility] [address] [place], [address] GFR/1.73 sq M.predicted among non-blacks MDRD (S/P/Bld) [Vol rate/Area] 100 mL/min/{1.73_m2} Normal >60 [facility] Comment on above: Result Comment: mL/m in/1.73m2 CKD-EPI Creatinine Equation (2020) Performed By: #### L 500.2500 ####[facility] [address] [place], [address] Glucose [Mass/Vol] 143 mg/dL High 70-99 [facility] Comment on above: Performed By: #### L 500.2500 ####[facility] [address] [place], [address] Potassium [Moles/Vol] 2.9 mmol/L Low 3.3-5.1 [facility] Comment on above: Performed By: #### L 500.2500 ####[facility] [address] [place], [address] Sodium [Moles/Vol] 145 mmol/L Normal 133-145 [facility] Comment on above: Performed By: #### L 500.2500 ####[facility] [address] [place], [address] Urea nitrogen [Mass/Vol] mg/dL Low 4-19 [facility] Comment on above: Performed By: #### L 500.2500 ####[facility] [address] [place], [address] BUN/CRE UNABLE TO CALCULATE Low 10-20 [facility] Comment on above: Performed By: #### L 100.0100, L500.2500 ####[facility] [address] [place], [address] Calcium [Mass/Vol] 7.6 mg/dL Normal 7.6-11.0 [facility] Comment on above: Performed By: #### L 100.0100, L500.2500 ####[facility] [address] [place], [address] Chloride [Moles/Vol] 105 mmol/L Normal 98-108 [facility] Comment on above: Performed By: #### L 100.0100, L500.2500 ####[facility] [address] [place], [address] CO2 [Moles/Vol] 25.4 mmol/L Normal 21.0-32.0 [facility] Comment on above: Performed By: #### L 100.0100, L500.2500 ####[facility] [address] [place], [address] Creatinine [Mass/Vol] 0.73 mg/dL Normal 0.70-1.20 [facility] Comment on above: Performed By: #### L 100.0100, L500.2500 ####[facility] [address] [place], [address] ECRCL 112.52 ml/min Normal 50-250 [facility] Comment on above: Performed By: #### L 100.0100, L500.2500 ####[facility] [address] [place], [address] GAP 10 Normal 5-15 [facility] Comment on above: Performed By: #### L 100.0100, L500.2500 ####[facility] [address] [place], [address] GFR/1.73 sq M.predicted among non-blacks MDRD (S/P/Bld) [Vol rate/Area] 106 mL/min/{1.73_m2} Normal >60 [facility] Comment on above: Result Comment: mL/m in/1.73m2 CKD-EPI Creatinine Equation (2020) Performed By: #### L 100.0100, L500.2500 ####[facility] [address] [place], [address] Glucose [Mass/Vol] 121 mg/dL High 70-99 [facility] Comment on above: Performed By: #### L 100.0100, L500.2500 ####[facility] [address] [place], [address] Potassium [Moles/Vol] 2.2 mmol/L Invalid Interpretation Code 3.3-5.1 [facility] Comment on above: Result Comment: Crit ical Result(s) Called at: 0637 by: PHIL JUAREZ TO RN[employer]. ??Results read back by same. Performed By: #### L 100.0100, L500.2500 ####[facility] [address] [place], [address] Sodium [Moles/Vol] 141 mmol/L Normal 133-145 [facility] Comment on above: Performed By: #### L 100.0100, L500.2500 ####[facility] [address] [place], [address] Urea nitrogen [Mass/Vol] mg/dL Low 4-19 [facility] Comment on above: Performed By: #### L 100.0100, L500.2500 ####[facility] [address] [place], [address] CBC W/Diff, Automatedon 01-26 Absolute Lymph 1.32 X10 3/uL Normal 0.83-4.51 [facility] Comment on above: Performed By: #### L 100.0100, L500.2500 ####[facility] [address] [place], [address] Absolute Neut 3.5 X10 3/uL Normal 2.0-7.7 [facility] Comment on above: Performed By: #### L 100.0100, L500.2500 ####[facility] [address] [place], [address] Basophils/100 WBC (Bld) 0.6 % Normal 0-1 [facility] Comment on above: Performed By: #### L 100.0100, L500.2500 ####[facility] [address] [place], [address] Eosinophils/100 WBC (Bld) 3.1 % Normal 0-5 [facility] Comment on above: Performed By: #### L 100.0100, L500.2500 ####[facility] [address] [place], [address] Erythrocyte distribution width (RBC) [Ratio] 14.6 % Normal 11.6-14.6 [facility] Comment on above: Performed By: #### L 100.0100, L500.2500 ####[facility] [address] [place], [address] Hematocrit (Bld) [Volume fraction] 31.7 % Low 37-47 [facility] Comment on above: Performed By: #### L 100.0100, L500.2500 ####[facility] [address] [place], [address] Hemoglobin (Bld) [Mass/Vol] 10.5 g/dL Low 12.0-15.0 [facility] Comment on above: Performed By: #### L 100.0100, L500.2500 ####[facility] [address] [place], [address] IG% 0.200 Normal 0.0-0.9 [facility] Comment on above: Result Comment: IG% - Immature Granulocytes (promyelocytes, myelocytes andmetamyelocytes) > 1% indicates that a LEFT SHIFT is Present. Performed By: #### L 100.0100, L500.2500 ####[facility] [address] [place], [address] Lymphocytes/100 WBC (Bld) 24.4 % Normal 19-41 [facility] Comment on above: Performed By: #### L 100.0100, L500.2500 ####[facility] [address] [place], [address] MCH (RBC) [Entitic mass] 27.1 pg Normal 27.0-32.0 [facility] Comment on above: Performed By: #### L 100.0100, L500.2500 ####[facility] [address] [place], [address] MCHC (RBC) [Mass/Vol] 33.1 g/dL Normal 32-36 [facility] Comment on above: Performed By: #### L 100.0100, L500.2500 ####[facility] [address] [place], [address] MCV (RBC) [Entitic vol] 81.9 fL Normal 81-99 [facility] Comment on above: Performed By: #### L 100.0100, L500.2500 ####[facility] [address] [place], [address] Monocytes/100 WBC (Bld) 7.8 % Normal 0-10 [facility] Comment on above: Performed By: #### L 100.0100, L500.2500 ####[facility] [address] [place], [address] Neutrophils/100 WBC (Bld) 63.9 % Normal 47-70 [facility] Comment on above: Performed By: #### L 100.0100, L500.2500 ####[facility] [address] [place], [address] Nucleated RBC (Bld) [#/Vol] 0 10*3/uL Normal 0-5 [facility] Comment on above: Performed By: #### L 100.0100, L500.2500 ####[facility] [address] [place], [address] Platelet mean volume (Bld) [Entitic vol] 9.3 fL Normal 6.2-12.0 [facility] Comment on above: Performed By: #### L 100.0100, L500.2500 ####[facility] [address] [place], [address] Platelets (Bld) [#/Vol] 315 10*3/uL Normal 150-450 [facility] Comment on above: Performed By: #### L 100.0100, L500.2500 ####[facility] [address] [place], [address] RBC (Bld) [#/Vol] 3.87 10*6/uL Low 4.2-5.4 [facility] Comment on above: Performed By: #### L 100.0100, L500.2500 ####[facility] [address] [place], [address] RDW SD 43.3 fl Normal 35.1-43.9 [facility] Comment on above: Performed By: #### L 100.0100, L500.2500 ####[facility] [address] [place], [address] WBC (Bld) [#/Vol] 5.4 10*3/uL Normal 4.4-11.0 [facility] Comment on above: Performed By: #### L 100.0100, L500.2500 ####[facility] [address] [place], [address] Prothrombin Time w/INRon INR Coag (PPP) [Relative time] 1.8 {INR} Normal [facility] Comment on above: Performed By: #### L 300.3900 ####[facility] [address] [place], [address] PT Coag (PPP) [Time] 21.2 s High 11.7-14.9 [facility] Comment on above: Performed By: #### L 300.3900 ####[facility] [address] [place], [address] Basic Metabolic Profile (BMP )on 02-21-2025 Urea nitrogen [Mass/Vol] 2 mg/dL Low 4-19 [facility] Comment on above: Performed By: #### L 500.2500 ####[facility] [address] [place], [address] CBC W/Diff, Automatedon 01-26 Absolute Lymph 1.41 X10 3/uL Normal 0.83-4.51 [facility] Comment on above: Performed By: #### L 100.0100, L300.3900, L500.4050 ####[facility] [address] [place], [address] Absolute Neut 3.5 X10 3/uL Normal 2.0-7.7 [facility] Comment on above: Performed By: #### L 100.0100, L300.3900, L500.4050 ####[facility] [address] [place], [address] Basophils/100 WBC (Bld) 0.4 % Normal 0-1 [facility] Comment on above: Performed By: #### L 100.0100, L300.3900, L500.4050 ####[facility] [address] [place], [address] Eosinophils/100 WBC (Bld) 1.8 % Normal 0-5 [facility] Comment on above: Performed By: #### L 100.0100, L300.3900, L500.4050 ####[facility] [address] [place], [address] Erythrocyte distribution width (RBC) [Ratio] 14.3 % Normal 11.6-14.6 [facility] Comment on above: Performed By: #### L 100.0100, L300.3900, L500.4050 ####[facility] [address] [place], [address] Hematocrit (Bld) [Volume fraction] 32.9 % Low 37-47 [facility] Comment on above: Performed By: #### L 100.0100, L300.3900, L500.4050 ####[facility] [address] [place], [address] Hemoglobin (Bld) [Mass/Vol] 11.0 g/dL Low 12.0-15.0 [facility] Comment on above: Performed By: #### L 100.0100, L300.3900, L500.4050 ####[facility] [address] [place], [address] IG% 0.200 Normal 0.0-0.9 [facility] Comment on above: Result Comment: IG% - Immature Granulocytes (promyelocytes, myelocytes andmetamyelocytes) > 1% indicates that a LEFT SHIFT is Present. Performed By: #### L 100.0100, L300.3900, L500.4050 ####[facility] [address] [place], [address] Lymphocytes/100 WBC (Bld) 25.9 % Normal 19-41 [facility] Comment on above: Performed By: #### L 100.0100, L300.3900, L500.4050 ####[facility] [address] [place], [address] MCH (RBC) [Entitic mass] 27.4 pg Normal 27.0-32.0 [facility] Comment on above: Performed By: #### L 100.0100, L300.3900, L500.4050 ####[facility] [address] [place], [address] MCHC (RBC) [Mass/Vol] 33.4 g/dL Normal 32-36 [facility] Comment on above: Performed By: #### L 100.0100, L300.3900, L500.4050 ####[facility] [address] [place], [address] MCV (RBC) [Entitic vol] 82.0 fL Normal 81-99 [facility] Comment on above: Performed By: #### L 100.0100, L300.3900, L500.4050 ####[facility] [address] [place], [address] Monocytes/100 WBC (Bld) 7.5 % Normal 0-10 [facility] Comment on above: Performed By: #### L 100.0100, L300.3900, L500.4050 ####[facility] [address] [place], [address] Neutrophils/100 WBC (Bld) 64.2 % Normal 47-70 [facility] Comment on above: Performed By: #### L 100.0100, L300.3900, L500.4050 ####[facility] [address] [place], [address] Nucleated RBC (Bld) [#/Vol] 0 10*3/uL Normal 0-5 [facility] Comment on above: Performed By: #### L 100.0100, L300.3900, L500.4050 ####[facility] [address] [place], [address] Platelet mean volume (Bld) [Entitic vol] 9.5 fL Normal 6.2-12.0 [facility] Comment on above: Performed By: #### L 100.0100, L300.3900, L500.4050 ####[facility] [address] [place], [address] Platelets (Bld) [#/Vol] 322 10*3/uL Normal 150-450 [facility] Comment on above: Performed By: #### L 100.0100, L300.3900, L500.4050 ####[facility] [address] [place], [address] RBC (Bld) [#/Vol] 4.01 10*6/uL Low 4.2-5.4 [facility] Comment on above: Performed By: #### L 100.0100, L300.3900, L500.4050 ####[facility] [address] [place], [address] RDW SD 42.4 fl Normal 35.1-43.9 [facility] Comment on above: Performed By: #### L 100.0100, L300.3900, L500.4050 ####[facility] [address] [place], [address] WBC (Bld) [#/Vol] 5.5 10*3/uL Normal 4.4-11.0 [facility] Comment on above: Performed By: #### L 100.0100, L300.3900, L500.4050 ####[facility] [address] [place], [address] Comprehensive Metabolic Prof ilon 02-21-2025 Potassium [Moles/Vol] 2.1 mmol/L Invalid Interpretation Code 3.3-5.1 [facility] Comment on above: Result Comment: Crit ical Result(s) Called at: 05:08 02-21-25 TO YISSEL by:??SHEN CASE Results read back by same. AMENDED REPORT 02/21/25 0510 K previously reported as: 2.2 *L mmol/LCritical Result(s) Called at: 05:08 02-21-25 TO DAVID by:??SHEN CASE Results read back by same. Performed By: #### L 100.0100, L300.3900, L500.4050 ####[facility] [address] [place], [address] ENTERIC PATHOGEN PANEL STOOL on 02-21-2025 EP PANEL Normal [facility] Comment on above: Performed By: #### M 100.0605, M100.6796, M100.637 ####[facility] [address] [place], [address] Hepatitis Panel Acuteon 01-26 COMMENT Comment Normal . [facility] Comment on above: Result Comment: Not infected with HCV unless early or acute infection issuspected (which may be delayed in an immunocompromisedindividual), or other evidence exists to indicate HCVinfection.Performed at: - [facility] [id number] Director: Christian Alfaro PhD, Phone: [phone] Performed By: #### L 501.9520, L503.6550, L506.0200, L503.6030, L3000.0375 ####[facility] [address] [place], [address] HEP B CORE,IgM Negative Normal Negative [facility] Comment on above: Performed By: #### L 501.9520, L503.6550, L506.0200, L503.6030, L3000.0375 ####[facility] [address] [place], [address] HEP B SURF AG Negative Normal Negative [facility] Comment on above: Performed By: #### L 501.9520, L503.6550, L506.0200, L503.6030, L3000.0375 ####[facility] [address] [place], [address] HEP C VIRUS AB Non-Reactive Normal Non Reactive [facility] Comment on above: Performed By: #### L 501.9520, L503.6550, L506.0200, L503.6030, L3000.0375 ####[facility] [address] [place], [address] HEPATITIS A-IgM Negative Normal Negative [facility] Comment on above: Result Comment: A ne gative anti-HAV IgM result suggests no recent orcurrent HAV infection. Performed By: #### L 501.9520, L503.6550, L506.0200, L503.6030, L3000.0375 ####[facility] [address] [place], [address] Magnesiumon 02-21-2025 Magnesium [Mass/Vol] 1.8 mg/dL Normal 1.5-2.2 [facility] Comment on above: Order Comment: *ADD ON Performed By: #### L 501.2300, L501.5200 ####[facility] [address] [place], [address] Phosphoruson 02-21-2025 Phosphate [Mass/Vol] 3.7 mg/dL Normal 2.7-4.5 [facility] Comment on above: Order Comment: *ADD ON Performed By: #### L 501.2300, L501.5200 ####[facility] [address] [place], [address] Prothrombin Time w/INRon INR Coag (PPP) [Relative time] 1.6 {INR} Normal [facility] Comment on above: Performed By: #### L 100.0100, L300.3900, L500.4050 ####[facility] [address] [place], [address] PT Coag (PPP) [Time] 18.9 s High 11.7-14.9 [facility] Comment on above: Performed By: #### L 100.0100, L300.3900, L500.4050 ####[facility] [address] [place], [address] CBC W/Diff, Automatedon 08-2 Absolute Lymph 1.96 X10 3/uL Normal 0.83-4.51 [facility] Comment on above: Performed By: #### L 100.0100, L501.2300 ####[facility] [address] [place], [address] Absolute Neut 4.8 X10 3/uL Normal 2.0-7.7 [facility] Comment on above: Performed By: #### L 100.0100, L501.2300 ####[facility] [address] [place], [address] Basophils/100 WBC (Bld) 0.4 % Normal 0-1 [facility] Comment on above: Performed By: #### L 100.0100, L501.2300 ####[facility] [address] [place], [address] Eosinophils/100 WBC (Bld) 2.2 % Normal 0-5 [facility] Comment on above: Performed By: #### L 100.0100, L501.2300 ####[facility] [address] [place], [address] Erythrocyte distribution width (RBC) [Ratio] 14.3 % Normal 11.6-14.6 [facility] Comment on above: Performed By: #### L 100.0100, L501.2300 ####[facility] [address] [place], [address] Hematocrit (Bld) [Volume fraction] 35.1 % Low 37-47 [facility] Comment on above: Performed By: #### L 100.0100, L501.2300 ####[facility] [address] [place], [address] Hemoglobin (Bld) [Mass/Vol] 11.7 g/dL Low 12.0-15.0 [facility] Comment on above: Performed By: #### L 100.0100, L501.2300 ####[facility] [address] [place], [address] IG% 0.300 Normal 0.0-0.9 [facility] Comment on above: Result Comment: IG% - Immature Granulocytes (promyelocytes, myelocytes andmetamyelocytes) > 1% indicates that a LEFT SHIFT is Present. Performed By: #### L 100.0100, L501.2300 ####[facility] [address] [place], [address] Lymphocytes/100 WBC (Bld) 26.4 % Normal 19-41 [facility] Comment on above: Performed By: #### L 100.0100, L501.2300 ####[facility] [address] [place], [address] MCH (RBC) [Entitic mass] 27.1 pg Normal 27.0-32.0 [facility] Comment on above: Performed By: #### L 100.0100, L501.2300 ####[facility] [address] [place], [address] MCHC (RBC) [Mass/Vol] 33.3 g/dL Normal 32-36 [facility] Comment on above: Performed By: #### L 100.0100, L501.2300 ####[facility] [address] [place], [address] MCV (RBC) [Entitic vol] 81.3 fL Normal 81-99 [facility] Comment on above: Performed By: #### L 100.0100, L501.2300 ####[facility] [address] [place], [address] Monocytes/100 WBC (Bld) 5.9 % Normal 0-10 [facility] Comment on above: Performed By: #### L 100.0100, L501.2300 ####[facility] [address] [place], [address] Neutrophils/100 WBC (Bld) 64.8 % Normal 47-70 [facility] Comment on above: Performed By: #### L 100.0100, L501.2300 ####[facility] [address] [place], [address] Nucleated RBC (Bld) [#/Vol] 0 10*3/uL Normal 0-5 [facility] Comment on above: Performed By: #### L 100.0100, L501.2300 ####[facility] [address] [place], [address] Platelet mean volume (Bld) [Entitic vol] 9.3 fL Normal 6.2-12.0 [facility] Comment on above: Performed By: #### L 100.0100, L501.2300 ####[facility] [address] [place], [address] Platelets (Bld) [#/Vol] 340 10*3/uL Normal 150-450 [facility] Comment on above: Performed By: #### L 100.0100, L501.2300 ####[facility] [address] [place], [address] RBC (Bld) [#/Vol] 4.32 10*6/uL Normal 4.2-5.4 [facility] Comment on above: Performed By: #### L 100.0100, L501.2300 ####[facility] [address] [place], [address] RDW SD 42.0 fl Normal 35.1-43.9 [facility] Comment on above: Performed By: #### L 100.0100, L501.2300 ####[facility] [address] [place], [address] WBC (Bld) [#/Vol] 7.4 10*3/uL Normal 4.4-11.0 [facility] Comment on above: Performed By: #### L 100.0100, L501.2300 ####[facility] [address] [place], [address] CDIFF (PCR)on 02-20-2025 CDIFF Normal [facility] Comment on above: Performed By: #### M 100.0605, M100.6796, M100.637 ####[facility] [address] [place], [address] Comprehensive Metabolic Prof ilon 02-20-2025 Albumin [Mass/Vol] 3.0 g/dL Low 3.5-5.0 [facility] Comment on above: Performed By: #### L 300.3900, L501.5200, L500.4050 ####[facility] [address] [place], [address] Albumin/Globulin [Mass ratio] 1.1 {ratio} Normal 0.9-2.4 [facility] Comment on above: Performed By: #### L 300.3900, L501.5200, L500.4050 ####[facility] [address] [place], [address] ALK PHOS 154 U/L High 35-104 [facility] Comment on above: Performed By: #### L 300.3900, L501.5200, L500.4050 ####[facility] [address] [place], [address] ALT [Catalytic activity/Vol] 129 U/L High <=34 [facility] Comment on above: Performed By: #### L 300.3900, L501.5200, L500.4050 ####[facility] [address] [place], [address] AST [Catalytic activity/Vol] 288 U/L High <=31 [facility] Comment on above: Performed By: #### L 300.3900, L501.5200, L500.4050 ####[facility] [address] [place], [address] Bilirubin [Mass/Vol] 0.68 mg/dL Normal 0.00-1.30 [facility] Comment on above: Performed By: #### L 300.3900, L501.5200, L500.4050 ####[facility] [address] [place], [address] BUN/CRE 3.5 RATIO Low 10-20 [facility] Comment on above: Performed By: #### L 300.3900, L501.5200, L500.4050 ####[facility] [address] [place], [address] Calcium [Mass/Vol] 7.3 mg/dL Low 7.6-11.0 [facility] Comment on above: Performed By: #### L 300.3900, L501.5200, L500.4050 ####[facility] [address] [place], [address] Chloride [Moles/Vol] 109 mmol/L High 98-108 [facility] Comment on above: Performed By: #### L 300.3900, L501.5200, L500.4050 ####[facility] [address] [place], [address] CO2 [Moles/Vol] 20.7 mmol/L Low 21.0-32.0 [facility] Comment on above: Performed By: #### L 300.3900, L501.5200, L500.4050 ####[facility] [address] [place], [address] Creatinine [Mass/Vol] 0.84 mg/dL Normal 0.70-1.20 [facility] Comment on above: Performed By: #### L 300.3900, L501.5200, L500.4050 ####[facility] [address] [place], [address] ECRCL 99.18 ml/min Normal 50-250 [facility] Comment on above: Performed By: #### L 300.3900, L501.5200, L500.4050 ####[facility] [address] [place], [address] GAP 13 Normal 5-15 [facility] Comment on above: Performed By: #### L 300.3900, L501.5200, L500.4050 ####[facility] [address] [place], [address] GFR/1.73 sq M.predicted among non-blacks MDRD (S/P/Bld) [Vol rate/Area] 90 mL/min/{1.73_m2} Normal >60 [facility] Comment on above: Result Comment: mL/m in/1.73m2 CKD-EPI Creatinine Equation (2020) Performed By: #### L 300.3900, L501.5200, L500.4050 ####[facility] [address] [place], [address] Globulin (S) [Mass/Vol] 2.7 g/dL Normal 2.2-4.2 [facility] Comment on above: Performed By: #### L 300.3900, L501.5200, L500.4050 ####[facility] [address] [place], [address] Glucose [Mass/Vol] 100 mg/dL High 70-99 [facility] Comment on above: Performed By: #### L 300.3900, L501.5200, L500.4050 ####[facility] [address] [place], [address] Potassium [Moles/Vol] 2.1 mmol/L Invalid Interpretation Code 3.3-5.1 [facility] Comment on above: Result Comment: Crit ical Result(s) Called at: by: CLAUDIA GARZA??Resultsread back by same. Performed By: #### L 300.3900, L501.5200, L500.4050 ####[facility] [address] [place], [address] Sodium [Moles/Vol] 143 mmol/L Normal 133-145 [facility] Comment on above: Performed By: #### L 300.3900, L501.5200, L500.4050 ####[facility] [address] [place], [address] T PROT 5.7 g/dL Low 5.9-8.4 [facility] Comment on above: Performed By: #### L 300.3900, L501.5200, L500.4050 ####[facility] [address] [place], [address] Urea nitrogen [Mass/Vol] 3 mg/dL Low 4-19 [facility] Comment on above: Performed By: #### L 300.3900, L501.5200, L500.4050 ####[facility] [address] [place], [address] Folates,Serum (Folic Acid)on 02-20-2025 FOLATES,SERUM 13.60 ng/mL Normal 4.60-34.80 [facility] Comment on above: Order Comment: TY2 3 A Result Comment: Hemo lysis, Results will be affected, Requires Recollection. AMENDED REPORT 02/20/25 0009 FOLATES,SERUM previously reported as: 13.60 ng/mL Performed By: #### L 501.9520, L503.6550, L506.0200, L503.6030, L3000.0375 ####[facility] [address] [place], [address] Iron+Iron Binding Capacityon 02-20-2025 Iron [Mass/Vol] 68 ug/dL Normal 50-170 [facility] Comment on above: Performed By: #### L 501.9520, L503.6550, L506.0200, L503.6030, L3000.0375 ####[facility] [address] [place], [address] IRON SATURATION 23.0 Normal 13-59 [facility] Comment on above: Performed By: #### L 501.9520, L503.6550, L506.0200, L503.6030, L3000.0375 ####[facility] [address] [place], [address] TIBC 299 ug/dL Normal 250-450 [facility] Comment on above: Performed By: #### L 501.9520, L503.6550, L506.0200, L503.6030, L3000.0375 ####[facility] [address] [place], [address] UIBC 231 ug/dL Normal 228-428 [facility] Comment on above: Performed By: #### L 501.9520, L503.6550, L506.0200, L503.6030, L3000.0375 ####[facility] [address] [place], [address] L501.2276on 02-20-2025 Ionized Calcium 1.06 mmol/L Low 1.09-1.30 [facility] Comment on above: Performed By: #### L 501.2276 ####[facility] [address] [place], [address] Magnesiumon 02-20-2025 Magnesium [Mass/Vol] 2.0 mg/dL Normal 1.5-2.2 [facility] Comment on above: Performed By: #### L 300.3900, L501.5200, L500.4050 ####[facility] [address] [place], [address] Phosphoruson 02-20-2025 Phosphate [Mass/Vol] 3.6 mg/dL Normal 2.7-4.5 [facility] Comment on above: Performed By: #### L 100.0100, L501.2300 ####[facility] [address] [place], [address] Prothrombin Time w/INRon INR Coag (PPP) [Relative time] 1.5 {INR} Normal [facility] Comment on above: Performed By: #### L 300.3900, L501.5200, L500.4050 ####[facility] [address] [place], [address] PT Coag (PPP) [Time] 18.8 s High 11.7-14.9 [facility] Comment on above: Performed By: #### L 300.3900, L501.5200, L500.4050 ####[facility] [address] [place], [address] Stool Lactoferrin/WBCon 2 WBCST Normal [facility] Comment on above: Performed By: #### M 100.0605, M100.9796, M100.637 ####[facility] [address] [place], [address] Stool Occult Blood iFOBon STOB Negative Normal [facility] Comment on above: Performed By: #### M 100.7900 ####[facility] [address] [place], [address] Vitamin B12on 02-20-2025 Cobalamin (Vitamin B12) [Mass/Vol] 471 pg/mL Normal 180-914 [facility] Comment on above: Performed By: #### L 503.0106 ####[facility] [address] [place], [address] CBC W/Diff, Automatedon 01-26 Absolute Lymph 2.51 X10 3/uL Normal 0.83-4.51 [facility] Comment on above: Performed By: #### L 100.0100, L503.6005, L500.4050, L501.2450, L501.3620 ####[facility] [address] [place], [address] Absolute Neut 6.1 X10 3/uL Normal 2.0-7.7 [facility] Comment on above: Performed By: #### L 100.0100, L503.6005, L500.4050, L501.2450, L501.3620 ####[facility] [address] [place], [address] Basophils/100 WBC (Bld) 0.5 % Normal 0-1 [facility] Comment on above: Performed By: #### L 100.0100, L503.6005, L500.4050, L501.2450, L501.3620 ####[facility] [address] [place], [address] Eosinophils/100 WBC (Bld) 1.4 % Normal 0-5 [facility] Comment on above: Performed By: #### L 100.0100, L503.6005, L500.4050, L501.2450, L501.3620 ####[facility] [address] [place], [address] Erythrocyte distribution width (RBC) [Ratio] 14.3 % Normal 11.6-14.6 [facility] Comment on above: Performed By: #### L 100.0100, L503.6005, L500.4050, L501.2450, L501.3620 ####[facility] [address] [place], [address] Hematocrit (Bld) [Volume fraction] 38.8 % Normal 37-47 [facility] Comment on above: Performed By: #### L 100.0100, L503.6005, L500.4050, L501.2450, L501.3620 ####[facility] [address] [place], [address] Hemoglobin (Bld) [Mass/Vol] 13.0 g/dL Normal 12.0-15.0 [facility] Comment on above: Performed By: #### L 100.0100, L503.6005, L500.4050, L501.2450, L501.3620 ####[facility] [address] [place], [address] IG% 0.300 Normal 0.0-0.9 [facility] Comment on above: Result Comment: IG% - Immature Granulocytes (promyelocytes, myelocytes andmetamyelocytes) > 1% indicates that a LEFT SHIFT is Present. Performed By: #### L 100.0100, L503.6005, L500.4050, L501.2450, L501.3620 ####[facility] [address] [place], [address] Lymphocytes/100 WBC (Bld) 26.5 % Normal 19-41 [facility] Comment on above: Performed By: #### L 100.0100, L503.6005, L500.4050, L501.2450, L501.3620 ####[facility] [address] [place], [address] MCH (RBC) [Entitic mass] 27.3 pg Normal 27.0-32.0 [facility] Comment on above: Performed By: #### L 100.0100, L503.6005, L500.4050, L501.2450, L501.3620 ####[facility] [address] [place], [address] MCHC (RBC) [Mass/Vol] 33.5 g/dL Normal 32-36 [facility] Comment on above: Performed By: #### L 100.0100, L503.6005, L500.4050, L501.2450, L501.3620 ####[facility] [address] [place], [address] MCV (RBC) [Entitic vol] 81.5 fL Normal 81-99 [facility] Comment on above: Performed By: #### L 100.0100, L503.6005, L500.4050, L501.2450, L501.3620 ####[facility] [address] [place], [address] Monocytes/100 WBC (Bld) 7.3 % Normal 0-10 [facility] Comment on above: Performed By: #### L 100.0100, L503.6005, L500.4050, L501.2450, L501.3620 ####[facility] [address] [place], [address] Neutrophils/100 WBC (Bld) 64.0 % Normal 47-70 [facility] Comment on above: Performed By: #### L 100.0100, L503.6005, L500.4050, L501.2450, L501.3620 ####[facility] [address] [place], [address] Nucleated RBC (Bld) [#/Vol] 0 10*3/uL Normal 0-5 [facility] Comment on above: Performed By: #### L 100.0100, L503.6005, L500.4050, L501.2450, L501.3620 ####[facility] [address] [place], [address] Platelet mean volume (Bld) [Entitic vol] 9.1 fL Normal 6.2-12.0 [facility] Comment on above: Performed By: #### L 100.0100, L503.6005, L500.4050, L501.2450, L501.3620 ####[facility] [address] [place], [address] Platelets (Bld) [#/Vol] 365 10*3/uL Normal 150-450 [facility] Comment on above: Performed By: #### L 100.0100, L503.6005, L500.4050, L501.2450, L501.3620 ####[facility] [address] [place], [address] RBC (Bld) [#/Vol] 4.76 10*6/uL Normal 4.2-5.4 [facility] Comment on above: Performed By: #### L 100.0100, L503.6005, L500.4050, L501.2450, L501.3620 ####[facility] [address] [place], [address] RDW SD 42.4 fl Normal 35.1-43.9 [facility] Comment on above: Performed By: #### L 100.0100, L503.6005, L500.4050, L501.2450, L501.3620 ####[facility] [address] [place], [address] WBC (Bld) [#/Vol] 9.5 10*3/uL Normal 4.4-11.0 [facility] Comment on above: Performed By: #### L 100.0100, L503.6005, L500.4050, L501.2450, L501.3620 ####[facility] [address] [place], [address] CPK Total, Creatine Kinaseon 02-19-2025 CPK TOTAL 700 U/L High 24-195 [facility] Comment on above: Performed By: #### L 100.0100, L503.6005, L500.4050, L501.2450, L501.3620 ####[facility] [address] [place], [address] CTA Abd w/Runoff W/WO Contra ston 02-19-2025 CTA Abd w/Runoff W/WO Contrast Normal [facility] Comprehensive Metabolic Prof ilon 02-19-2025 Potassium [Moles/Vol] 2.1 mmol/L Invalid Interpretation Code 3.3-5.1 [facility] Comment on above: Result Comment: Crit ical Result(s) Called MMARTIN at: 1934 by:SARBJIT??Results read back by same.Critical Result(s) Called at: by:??Results read back bysame. AMENDED REPORT 02/19/251953 K previously reported as: 2.1 *L mmol/LCritical Result(s) Called MMARTIN at: 1934 by:SARBJIT??Results read back by same. Performed By: #### L 100.0100, L503.6005, L500.4050, L501.2450, L501.3620 ####[facility] [address] [place], [address] Emergency Department Summary on 02-19-2025 Emergency Department Summary Normal [facility] Ferritinon 02-19-2025 Ferritin [Mass/Vol] 47 ng/mL Normal 22-378 [facility] Comment on above: Performed By: #### L 501.9520, L503.6550, L506.0200, L503.6030, L3000.0375 ####[facility] [address] [place], [address] H AND P Exam - Hospitaliston 02-19-2025 H&P Exam - Hospitalist Normal [facility] Lactic Acidon 02-19-2025 Lactate [Moles/Vol] 1.4 mmol/L Normal 0.0-2.0 [facility] Comment on above: Performed By: #### L 503.6005 ####[facility] [address] [place], [address] Lactate [Moles/Vol] 2.3 mmol/L Invalid Interpretation Code 0.0-2.0 [facility] Comment on above: Order Comment: Y Result Comment: Crit ical Result(s) Called MMARTIN at: 1934 by:SARBJIT??Results read back by same. Performed By: #### L 100.0100, L503.6005, L500.4050, L501.2450, L501.3620 ####[facility] [address] [place], [address] Lipaseon 02-19-2025 Lipase [Catalytic activity/Vol] 12 U/L Low 13-75 [facility] Comment on above: Result Comment: Plechay damon note:LIPASE revised reference range effective 22.New Lipase methodology. Expected to produce lower valuesthan the previous assay method.NEW Reference Range: 13 - 75 U/L Performed By: #### L 100.0100, L503.6005, L500.4050, L501.2450, L501.3620 ####[facility] [address] [place], [address] Magnesiumon 02-19-2025 Magnesium [Mass/Vol] 0.8 mg/dL Invalid Interpretation Code 1.5-2.2 [facility] Comment on above: Result Comment: Crit ical Result(s) Called ALAMMERS at: 2117 by:SARBJIT??Results read back by same. Performed By: #### L 501.5200 ####[facility] [address] [place], [address] Partial Thromboplast Timeon 02-19-2025 aPTT Coag (Bld) [Time] 30.6 s Normal 24.1-36.2 [facility] Comment on above: Performed By: #### L 300.3900, L300.4310 ####[facility] [address] [place], [address] ,Serum,hCG Quali.on 02-19-2025 HCG, SERUM QUAL Negative Normal [facility] Comment on above: Performed By: #### L 700.6800 ####[facility] [address] [place], [address] Prothrombin Time w/INRon INR Coag (PPP) [Relative time] 1.4 {INR} Normal [facility] Comment on above: Performed By: #### L 300.3900, L300.4310 ####[facility] [address] [place], [address] PT Coag (PPP) [Time] 17.9 s High 11.7-14.9 [facility] Comment on above: Performed By: #### L 300.3900, L300.4310 ####[facility] [address] [place], [address] Thyroid Stim Hormone (TSH)on 02-19-2025 TSH 2.560 uIU/mL Normal 0.300-4.200 [facility] Comment on above: Performed By: #### L 501.9520, L503.6550, L506.0200, L503.6030, L3000.0375 ####[facility] [address] [place], [address] Urinalysis, Completeon 02-19 EPI,SQUAMOUS 0-5 SEEN Normal 5-10 [facility] Comment on above: Order Comment: CLEAN CATCH Performed By: #### L 400.0001 ####[facility] [address] [place], [address] WBC 0-5 SEEN Normal 0-5 [facility] Comment on above: Order Comment: CLEAN CATCH Performed By: #### L 400.0001 ####[facility] [address] [place], [address] BACTERIA 0 SEEN Normal None Seen [facility] Comment on above: Order Comment: CLEAN CATCH Performed By: #### L 400.0001 ####[facility] [address] [place], [address] Mucus Ql (Urine sed) 0 SEEN Normal [facility] Comment on above: Order Comment: CLEAN CATCH Performed By: #### L 400.0001 ####[facility] [address] [place], [address] RBC 0 SEEN Normal 0-5 [facility] Comment on above: Order Comment: CLEAN CATCH Performed By: #### L 400.0001 ####[facility] [address] [place], [address] BACTERIA Normal None Seen [facility] Comment on above: Order Comment: COLLE CTOR TO SPECIFY Result Comment: DUPL ICATE ORDER Performed By: #### L 400.0001 ####[facility] [address] [place], [address] BILIRUBIN URINE Normal Negative [facility] Comment on above: Order Comment: COLLE CTOR TO SPECIFY Result Comment: DUPL ICATE ORDER Performed By: #### L 400.0001 ####[facility] [address] [place], [address] Clarity (U) Normal Clear [facility] Comment on above: Order Comment: COLLE CTOR TO SPECIFY Result Comment: DUPL ICATE ORDER Performed By: #### L 400.0001 ####[facility] [address] [place], [address] Color (U) Normal Yellow [facility] Comment on above: Order Comment: COLLE CTOR TO SPECIFY Result Comment: DUPL ICATE ORDER Performed By: #### L 400.0001 ####[facility] [address] [place], [address] EPI,SQUAMOUS Normal 5-10 [facility] Comment on above: Order Comment: COLLE CTOR TO SPECIFY Result Comment: DUPL ICATE ORDER Performed By: #### L 400.0001 ####[facility] [address] [place], [address] GLUCOSE, UR Normal Normal [facility] Comment on above: Order Comment: COLLE CTOR TO SPECIFY Result Comment: DUPL ICATE ORDER Performed By: #### L 400.0001 ####[facility] [address] [place], [address] KETONE UR Normal Negative [facility] Comment on above: Order Comment: COLLE CTOR TO SPECIFY Result Comment: DUPL ICATE ORDER Performed By: #### L 400.0001 ####[facility] [address] [place], [address] LEUK ESTERASE Normal Negative [facility] Comment on above: Order Comment: COLLE CTOR TO SPECIFY Result Comment: DUPL ICATE ORDER Performed By: #### L 400.0001 ####[facility] [address] [place], [address] Mucus Ql (Urine sed) Normal [facility] Comment on above: Order Comment: COLLE CTOR TO SPECIFY Result Comment: DUPL ICATE ORDER Performed By: #### L 400.0001 ####[facility] [address] [place], [address] Nitrite Ql (U) Normal Negative [facility] Comment on above: Order Comment: COLLE CTOR TO SPECIFY Result Comment: DUPL ICATE ORDER Performed By: #### L 400.0001 ####[facility] [address] [place], [address] OCCULT BLOOD-UR Normal Negative [facility] Comment on above: Order Comment: COLLE CTOR TO SPECIFY Result Comment: DUPL ICATE ORDER Performed By: #### L 400.0001 ####[facility] [address] [place], [address] pH UR Normal 5.0 - 8.0 [facility] Comment on above: Order Comment: COLLE CTOR TO SPECIFY Result Comment: DUPL ICATE ORDER Performed By: #### L 400.0001 ####[facility] [address] [place], [address] PROT DIPSTX Normal Negative [facility] Comment on above: Order Comment: COLLE CTOR TO SPECIFY Result Comment: DUPL ICATE ORDER Performed By: #### L 400.0001 ####[facility] [address] [place], [address] RBC Normal 0-5 [facility] Comment on above: Order Comment: COLLE CTOR TO SPECIFY Result Comment: DUPL ICATE ORDER Performed By: #### L 400.0001 ####[facility] [address] [place], [address] SP.GR. DIPSTX Normal 1.002-1.030 [facility] Comment on above: Order Comment: COLLE CTOR TO SPECIFY Result Comment: DUPL ICATE ORDER Performed By: #### L 400.0001 ####[facility] [address] [place], [address] UR Preservative Normal [facility] Comment on above: Order Comment: COLLE CTOR TO SPECIFY Result Comment: DUPL ICATE ORDER Performed By: #### L 400.0001 ####[facility] [address] [place], [address] UROBILI Normal Normal [facility] Comment on above: Order Comment: COLLE CTOR TO SPECIFY Result Comment: DUPL ICATE ORDER Performed By: #### L 400.0001 ####[facility] [address] [place], [address] WBC Normal 0-5 [facility] Comment on above: Order Comment: COLLE CTOR TO SPECIFY Result Comment: DUPL ICATE ORDER Performed By: #### L 400.0001 ####[facility] [address] [place] [id number] Urine Drug Screen (VISTA)on 02-19-2025 AMPHETAMINES Negative Normal <1000 ng/mL [facility] Comment on above: Performed By: #### L 505.5000 ####[facility] [address] [facility] [place] [address] BARBITIURATES Negative Normal < 200 ng/mL [facility] Comment on above: Performed By: #### L 505.5000 ####[facility] [address] [place] [id number] BENZODIAZIPINE Positive Normal < 200 ng/mL [facility] Comment on above: Result Comment: If c onfirmation testing is needed, a separate order will berequired to send out testing to the reference laboratory. Performed By: #### L 505.5000 ####[facility] [address] [place] [id number] BUP Ur Drug Scr Negative Normal < 200 ng/mL [facility] Comment on above: Performed By: #### L 505.5000 ####[facility] [address] [place] [address] COCAINE Negative Normal < 300 ng/mL [facility] Comment on above: Performed By: #### L 505.5000 ####[facility] [address] [place] [id number] Fentanyl Negative Normal <5 ng/mL [facility] Comment on above: Result Comment: CONF IRMATORY TESTING FOR ALL POSITIVE URINE DRUG SCREENRESULTS WILL ONLY BE SENT OUT UPON PHYSICIAN ORDER.Gerhard Pro Urine Drug Screen methods provide only preliminaryanalytical test results. A more specific alternate chemicalmethod must be used in order to obtain a confirmedanalytical result. Gas chromatography/mass spectrometery(GC/MS) is the preferred confirmatory method. Clinicalconsideration and professional judgement should be appliedto any drug of abuse test result, particularly whenpreliminary positive results are used.Urine TCA testing must be ordered separately. Use testmnemonic: [facility] Performed By: #### L 505.5000 ####[facility] [address] [place], [address] METHADONE Negative Normal < 300 ng/mL [facility] Comment on above: Performed By: #### L 505.5000 ####[facility] [address] [facility] [address] OPIATES Negative Normal < 300 ng/mL [facility] Comment on above: Performed By: #### L 505.5000 ####[facility] [address] [place], [address] OXYCODONE Negative Normal < 100 ng/mL [facility] Comment on above: Performed By: #### L 505.5000 ####[facility] [address] [place], [address] PCP Negative Normal < 25 ng/mL [facility] Comment on above: Performed By: #### L 505.5000 ####[facility] [address] [place], [address] THC Negative Normal < 50 ng/mL [facility] Comment on above: Performed By: #### L 505.5000 ####[facility] [address] [place], [address] Wound Ctr History AND Physic dorothy 01-17-2025 Wound Ctr History & Physical Normal [facility] L3410.9994on 01-15-2025 [facility] Misc. 2 COMMENT Normal . [facility] Comment on above: Order Comment: [id number] 0SELENIUM - ROYAL BLUE - PLASMA Result Comment: Test Ordered: [id number] Selenium, Serum/PlasmaTest(s) 117069-Bjcpfxyh, Serum/Plasmawas developed and its performance characteristicsdetermined by [facility]. It has not been cleared or approvedby the Food and Drug Administration.Selenium, Serum/Plasma 100 ug/L Reference Range: 93-198Performed at: [facility] [address] [place], [place] [id number] Director: Kim Mayorga MD, Phone: [phone] at: [facility] [place], [place] [id number] Director: Christian Alfaro PhD, Phone: [phone] Performed By: #### L 100.0500, L500.4050, L501.2300, L501.5000, L501.5200, L501.6710, L503.0106, L506.1001, L3300.0100, L3300.8200, L3300.9900, L3410.9992, L7400.3000, L3410.9996, L3410.9994 ####[facility] [address] [place], [address] L3410.9996on 01-13-2025 [facility] COM[facility] Normal . [facility] Comment on above: Order Comment: [id number] 9VITAMIN A E - SERUM Result Comment: Test Ordered: [id number] Vitamin A and ETest(s) 013994-Bfhlrbt E(Alpha Tocopherol); 665323-Eobdisb E(Gamma Tocopherol)was developed and its performance characteristicsdetermined [...] was developed and its performance characteristicsdetermined by [facility]. It has not been cleared orapproved by the Food and Drug Administration.Vitamin E(Alpha Tocopherol) 7.8 mg/L Reference Range: 7.0-25.1Vitamin E(Gamma Tocopherol) 1.1 mg/L BN Reference Range: 0.5-5.5Reference intervals for alpha and gamma-tocopheroldetermined from National Health and Nutrition ExaminationSurvey, 3615-4900. Individuals with alpha-tocopherol levelsless than 5.0 mg/L are considered vitamin E deficient.Performed at: [address] [id number] Director: Kim Mayorga MD, Phone: [phone] at: [address] [id number] Director: Christian Alfaro PhD, Phone: [phone] Performed By: #### L 100.0500, L500.4050, L501.2300, L501.5000, L501.5200, L501.6710, L503.0106, L506.1001, L3300.0100, L3300.8200, L3300.9900, L3410.9992, L7400.3000, L3410.9996, L3410.9994 ####[facility] [address] [place], [address] Methylmalonic Acid [facility] METHYLMAL ACID 239 nmol/L Normal 0-378 [facility] Comment on above: Order Comment: Test( s) 580965-Vublxytzqrdfx Acid, Serumwas developed and its performance characteristicsdetermined by [facility]. It has not been cleared or approvedby the Food and Drug Administration. Result Comment: Perf ormed at: [address] [id number] Director: Kim Mayorga MD, Phone: [phone] Performed By: #### L 100.0500, L500.4050, L501.2300, L501.5000, L501.5200, L501.6710, L503.0106, L506.1001, L3300.0100, L3300.8200, L3300.9900, L3410.9992, L7400.3000, L3410.9996, L3410.9994 ####[facility] [address] [place], [address] Copper, Serum or Plasmaon COPPER, SERUM 131 ug/dL Normal 80-158 [facility] Comment on above: Order Comment: Test( s) 416321-Zmfgcpo B6was developed and its performance characteristicsdetermined by [employer]. It has not been cleared or approvedby the Food and Drug Administration. Result Comment: Dete ction Limit = 5 Performed By: #### L 100.0500, L500.4050, L501.2300, L501.5000, L501.5200, L501.6710, L503.0106, L506.1001, L3300.0100, L3300.8200, L3300.9900, L3410.9992, L7400.3000, L3410.9996, L3410.9994 ####[facility] [address] [place], [place], [address] L3300.8200on 01-12-2025 VITAMIN B6 1.2 ug/L Low 3.4-65.2 [facility] Comment on above: Order Comment: Test( s) [id number]-Pyrmlhv B6was developed and its performance characteristicsdetermined by [employer]. It has not been cleared or approvedby the Food and Drug Administration. Result Comment: Defi ciency: <3.4 Marginal: 3.4 - 5.1 Adequate: >5.1 Performed By: #### L 100.0500, L500.4050, L501.2300, L501.5000, L501.5200, L501.6710, L503.0106, L506.1001, L3300.0100, L3300.8200, L3300.9900, L3410.9992, L7400.3000, L3410.9996, L3410.9994 ####[facility] [address] [place], [place], [id number] L3410.9992on 01-12-2025 [facility] Misc. COMMENT Normal . [facility] Comment on above: Order Comment: [id number] 5WB MANGANESE - ROYAL BLUE - WB Result Comment: Test Ordered: [id number] Manganese, BloodTest(s) [id number]-Gsihgwsdm, Bloodwas developed and its performance characteristicsdetermined by [employer]. It has not been cleared or approvedby the Food and Drug Administration.Manganese, Blood 8.8 ug/L [facility] Reference Range: 8.0-18.7Performed at: [facility] - [facility], [place], [place] [id number] Director: Wendy Fowler MD, Phone: [phone] at: [address] [id number] Director: Christian Alfaro PhD, Phone: [phone] Performed By: #### L 100.0500, L500.4050, L501.2300, L501.5000, L501.5200, L501.6710, L503.0106, L506.1001, L3300.0100, L3300.8200, L3300.9900, L3410.9992, L7400.3000, L3410.9996, L3410.9994 ####[facility] [address] [place], [address] Zinc, Plasma or Serumon 12-25 ZINC,PLASMA/SER 71 ug/dL Normal 44-115 [facility] Comment on above: Order Comment: Test( s) [id number]-Wakygae B6was developed and its performance characteristicsdetermined by [employer]. It has not been cleared or approvedby the Food and Drug Administration. Result Comment: Dete ction Limit = 5Performed at: [address] [id number] Director: Kim Mayorga MD, Phone: [phone] Performed By: #### L 100.0500, L500.4050, L501.2300, L501.5000, L501.5200, L501.6710, L503.0106, L506.1001, L3300.0100, L3300.8200, L3300.9900, L3410.9992, L7400.3000, L3410.9996, L3410.9994 ####[facility] [address] [place], [address] Basic metabolic 2000 panelon 01-11-2025 Anion gap [Moles/Vol] 16 mmol/L High 8 - 15 mmol/L [facility] Calcium [Mass/Vol] 9.6 mg/dL 8.5 - 10. 2 mg/dL [facility] Chloride [Moles/Vol] 104 mmol/L 98 - 107 mmol/L [facility] CO2 [Moles/Vol] 21 mmol/L Low 22 - 30 mmol/L [facility] Creatinine [Mass/Vol] 0.91 mg/dL 0.58 - 0.96 mg/dL [facility] GFR/1.73 sq M.predicted among non-blacks MDRD (S/P/Bld) [Vol rate/Area] 81 mL/min/{1.73_m2} - PINF [facility] Comment on above: Estimated Glomerular Filtration Rate [...] [Mass/Vol] 99 mg/dL 74 - 99 mg/dL [facility] Comment on above: The [employer] (ADA) provides guidance for [...] Standards of Medical Care in Diabetes 2016, [employer]. Diabetes Care. 2016.39(Suppl 1). Interpretation and review of laboratory results Abnormal [facility] Potassium [Moles/Vol] 3.4 mmol/L Low 3.7 - 5.1 mmol/L [facility] Sodium [Moles/Vol] 141 mmol/L 136 - 144 mmol/L [facility] Urea nitrogen [Mass/Vol] 17 mg/dL 7 - 21 mg/dL [facility] CBC W Auto Differential pane l (Bld)on 01-10-2025 Basophils (Bld) [#/Vol] 0.04 10*3/uL [facility] Basophils/100 WBC (Bld) 0.5 % [facility] Differential cell count method Nom (Bld) Auto [facility] Eosinophils (Bld) [#/Vol] 0.16 10*3/uL [facility] Eosinophils/100 WBC (Bld) 2 % [facility] Erythrocyte distribution width (RBC) [Ratio] 16 % High 11.5 - 15.0 % [facility] Hematocrit (Bld) [Volume fraction] 37.7 % 36.0 - 46.0 % [facility] Hemoglobin (Bld) [Mass/Vol] 12.2 g/dL 11.5 - 15.5 g/dL [facility] Immature granulocytes (Bld) [#/Vol] 0.03 10*3/uL [facility] Immature granulocytes/100 WBC (Bld) 0.4 % [facility] Interpretation and review of laboratory results Abnormal [facility] Lymphocytes (Bld) [#/Vol] 2.59 10*3/uL [facility] Lymphocytes/100 WBC (Bld) 32.4 % [facility] MCH (RBC) [Entitic mass] 27 pg 26.0 - 34.0 pg [facility] MCHC (RBC) [Mass/Vol] 32.4 g/dL 30.5 - 36.0 g/dL [facility] MCV (RBC) [Entitic vol] 83.4 fL 80.0 - 100.0 fL [facility] Monocytes (Bld) [#/Vol] 0.63 10*3/uL [facility] Monocytes/100 WBC (Bld) 7.9 % [facility] Neutrophils (Bld) [#/Vol] 4.55 10*3/uL [facility] Neutrophils/100 WBC (Bld) 56.8 % [facility] Nucleated RBC (Bld) [#/Vol] [facility] Nucleated RBC/100 WBC (Bld) [Ratio] 0 % /100 WBC [facility] Platelet mean volume (Bld) [Entitic vol] 10.1 fL 9.0 - 12.7 fL [facility] Platelets (Bld) [#/Vol] 332 10*3/uL [facility] RBC (Bld) [#/Vol] 4.52 10*6/uL 3.90 - 5.2 0 m/uL [facility] WBC (Bld) [#/Vol] 8 10*3/uL [facility] PT panel Coag (PPP)on 2024 INR Coag (PPP) [Relative time] 1.1 {INR} 0.9 - 1.3 [facility] Comment on above: Vitamin K Antagonist (VKA) Therapeutic Range: INR 2 to 3 (Target INR of 2.5) Note: For patients treated with VKA drugs, such as warfarin, the [employer] 2012 Guideline recommends [...] to 3.5 (target INR of 3). Rufina POND, et al. Chest 2012, 141:7S-47S Markel RA, et al. JAC 2017, 70: 252-289 Interpretation and review of laboratory results Normal [facility] PT Coag (PPP) [Time] 11.4 s [facility] CBC-Complete Blood Cnt No Di ffon 01-08-2025 Erythrocyte distribution width (RBC) [Ratio] 16.0 % High 11.6-14.6 [facility] Comment on above: Performed By: #### L 100.0500, L500.4050, L501.2300, L501.5000, L501.5200, L501.6710, L503.0106, L506.1001, L3300.0100, L3300.8200, L3300.9900, L3410.9992, L7400.3000, L3410.9996, L3410.9994 ####[facility] [address] [place], [place], [id number] Hematocrit (Bld) [Volume fraction] 35.9 % Low 37-47 [facility] Comment on above: Performed By: #### L 100.0500, L500.4050, L501.2300, L501.5000, L501.5200, L501.6710, L503.0106, L506.1001, L3300.0100, L3300.8200, L3300.9900, L3410.9992, L7400.3000, L3410.9996, L3410.9994 ####[facility] [address] [place], [place], [id number] Hemoglobin (Bld) [Mass/Vol] 11.9 g/dL Low 12.0-15.0 [facility] Comment on above: Performed By: #### L 100.0500, L500.4050, L501.2300, L501.5000, L501.5200, L501.6710, L503.0106, L506.1001, L3300.0100, L3300.8200, L3300.9900, L3410.9992, L7400.3000, L3410.9996, L3410.9994 ####[facility] [address] [place], [address] MCH (RBC) [Entitic mass] 27.1 pg Normal 27.0-32.0 [facility] Comment on above: Performed By: #### L 100.0500, L500.4050, L501.2300, L501.5000, L501.5200, L501.6710, L503.0106, L506.1001, L3300.0100, L3300.8200, L3300.9900, L3410.9992, L7400.3000, L3410.9996, L3410.9994 ####[facility] [address] [place], [place], [phone] MCHC (RBC) [Mass/Vol] 33.1 g/dL Normal 32-36 [facility] Comment on above: Performed By: #### L 100.0500, L500.4050, L501.2300, L501.5000, L501.5200, L501.6710, L503.0106, L506.1001, L3300.0100, L3300.8200, L3300.9900, L3410.9992, L7400.3000, L3410.9996, L3410.9994 ####[facility] [address] [place], [place], [phone] MCV (RBC) [Entitic vol] 81.8 fL Normal 81-99 [facility] Comment on above: Performed By: #### L 100.0500, L500.4050, L501.2300, L501.5000, L501.5200, L501.6710, L503.0106, L506.1001, L3300.0100, L3300.8200, L3300.9900, L3410.9992, L7400.3000, L3410.9996, L3410.9994 ####[facility] [address] [place], [address] Platelet mean volume (Bld) [Entitic vol] 9.7 fL Normal 6.2-12.0 [facility] Comment on above: Performed By: #### L 100.0500, L500.4050, L501.2300, L501.5000, L501.5200, L501.6710, L503.0106, L506.1001, L3300.0100, L3300.8200, L3300.9900, L3410.9992, L7400.3000, L3410.9996, L3410.9994 ####[facility] [address] [place], [address] Platelets (Bld) [#/Vol] 257 10*3/uL Normal 150-450 [facility] Comment on above: Performed By: #### L 100.0500, L500.4050, L501.2300, L501.5000, L501.5200, L501.6710, L503.0106, L506.1001, L3300.0100, L3300.8200, L3300.9900, L3410.9992, L7400.3000, L3410.9996, L3410.9994 ####[facility] [address] [place], [place], [phone]) RBC (Bld) [#/Vol] 4.39 10*6/uL Normal 4.2-5.4 [facility] Comment on above: Performed By: #### L 100.0500, L500.4050, L501.2300, L501.5000, L501.5200, L501.6710, L503.0106, L506.1001, L3300.0100, L3300.8200, L3300.9900, L3410.9992, L7400.3000, L3410.9996, L3410.9994 ####[facility] [address] [place], [place], [phone](566) RDW SD 47.8 fl High 35.1-43.9 [facility] Comment on above: Performed By: #### L 100.0500, L500.4050, L501.2300, L501.5000, L501.5200, L501.6710, L503.0106, L506.1001, L3300.0100, L3300.8200, L3300.9900, L3410.9992, L7400.3000, L3410.9996, L3410.9994 ####[facility] [address] [place], [place], [phone](210) WBC (Bld) [#/Vol] 6.3 10*3/uL Normal 4.4-11.0 [facility] Comment on above: Performed By: #### L 100.0500, L500.4050, L501.2300, L501.5000, L501.5200, L501.6710, L503.0106, L506.1001, L3300.0100, L3300.8200, L3300.9900, L3410.9992, L7400.3000, L3410.9996, L3410.9994 ####[facility] [address] [place], [place], [phone] CRPon 01-08-2025 C-REACTIVE PROT 16.50 mg/L High 0.0-3.0 [facility] Comment on above: Performed By: #### L 100.0500, L500.4050, L501.2300, L501.5000, L501.5200, L501.6710, L503.0106, L506.1001, L3300.0100, L3300.8200, L3300.9900, L3410.9992, L7400.3000, L3410.9996, L3410.9994 ####[facility] [address] [place], [address] Comprehensive Metabolic Prof ilon 01-08-2025 Albumin [Mass/Vol] 3.5 g/dL Normal 3.5-5.0 [facility] Comment on above: Performed By: #### L 100.0500, L500.4050, L501.2300, L501.5000, L501.5200, L501.6710, L503.0106, L506.1001, L3300.0100, L3300.8200, L3300.9900, L3410.9992, L7400.3000, L3410.9996, L3410.9994 ####[facility] [address] [place], [place], [phone] Albumin/Globulin [Mass ratio] 0.9 {ratio} Normal 0.9-2.4 [facility] Comment on above: Performed By: #### L 100.0500, L500.4050, L501.2300, L501.5000, L501.5200, L501.6710, L503.0106, L506.1001, L3300.0100, L3300.8200, L3300.9900, L3410.9992, L7400.3000, L3410.9996, L3410.9994 ####[facility] [address] [place], [address] ALK PHOS 141 U/L High 35-104 [facility] Comment on above: Performed By: #### L 100.0500, L500.4050, L501.2300, L501.5000, L501.5200, L501.6710, L503.0106, L506.1001, L3300.0100, L3300.8200, L3300.9900, L3410.9992, L7400.3000, L3410.9996, L3410.9994 ####[facility] [address] [place], [address] ALT [Catalytic activity/Vol] 16 U/L Normal <=34 [facility] Comment on above: Performed By: #### L 100.0500, L500.4050, L501.2300, L501.5000, L501.5200, L501.6710, L503.0106, L506.1001, L3300.0100, L3300.8200, L3300.9900, L3410.9992, L7400.3000, L3410.9996, L3410.9994 ####[facility] [address] [place], [address] AST [Catalytic activity/Vol] 18 U/L Normal <=31 [facility] Comment on above: Performed By: #### L 100.0500, L500.4050, L501.2300, L501.5000, L501.5200, L501.6710, L503.0106, L506.1001, L3300.0100, L3300.8200, L3300.9900, L3410.9992, L7400.3000, L3410.9996, L3410.9994 ####[facility] [address] [place], [place], [phone] Bilirubin [Mass/Vol] 0.44 mg/dL Normal 0.00-1.30 [facility] Comment on above: Performed By: #### L 100.0500, L500.4050, L501.2300, L501.5000, L501.5200, L501.6710, L503.0106, L506.1001, L3300.0100, L3300.8200, L3300.9900, L3410.9992, L7400.3000, L3410.9996, L3410.9994 ####[facility] [address] [facility] [place], [place], [phone] BUN/CRE 17.3 RATIO Normal 10-20 [facility] Comment on above: Performed By: #### L 100.0500, L500.4050, L501.2300, L501.5000, L501.5200, L501.6710, L503.0106, L506.1001, L3300.0100, L3300.8200, L3300.9900, L3410.9992, L7400.3000, L3410.9996, L3410.9994 ####[facility] [address] [facility] [place], [place], [phone] Calcium [Mass/Vol] 9.0 mg/dL Normal 7.6-11.0 [facility] Comment on above: Performed By: #### L 100.0500, L500.4050, L501.2300, L501.5000, L501.5200, L501.6710, L503.0106, L506.1001, L3300.0100, L3300.8200, L3300.9900, L3410.9992, L7400.3000, L3410.9996, L3410.9994 ####[facility] [address] [place], [place], [phone] Chloride [Moles/Vol] 101 mmol/L Normal 98-108 [facility] Comment on above: Performed By: #### L 100.0500, L500.4050, L501.2300, L501.5000, L501.5200, L501.6710, L503.0106, L506.1001, L3300.0100, L3300.8200, L3300.9900, L3410.9992, L7400.3000, L3410.9996, L3410.9994 ####[facility] [address] [place], [place], [phone] CO2 [Moles/Vol] 19.2 mmol/L Low 21.0-32.0 [facility] Comment on above: Performed By: #### L 100.0500, L500.4050, L501.2300, L501.5000, L501.5200, L501.6710, L503.0106, L506.1001, L3300.0100, L3300.8200, L3300.9900, L3410.9992, L7400.3000, L3410.9996, L3410.9994 ####[facility] [address] [place], [address] Creatinine [Mass/Vol] 0.99 mg/dL Normal 0.70-1.20 [facility] Comment on above: Performed By: #### L 100.0500, L500.4050, L501.2300, L501.5000, L501.5200, L501.6710, L503.0106, L506.1001, L3300.0100, L3300.8200, L3300.9900, L3410.9992, L7400.3000, L3410.9996, L3410.9994 ####[facility] [address] [place], [place], [phone] GAP 17 High 5-15 [facility] Comment on above: Performed By: #### L 100.0500, L500.4050, L501.2300, L501.5000, L501.5200, L501.6710, L503.0106, L506.1001, L3300.0100, L3300.8200, L3300.9900, L3410.9992, L7400.3000, L3410.9996, L3410.9994 ####[facility] [address] [place], [address] GFR/1.73 sq M.predicted among non-blacks MDRD (S/P/Bld) [Vol rate/Area] 73 mL/min/{1.73_m2} Normal >60 [facility] Comment on above: Result Comment: mL/m in/1.73m2 CKD-EPI Creatinine Equation (2020) Performed By: #### L 100.0500, L500.4050, L501.2300, L501.5000, L501.5200, L501.6710, L503.0106, L506.1001, L3300.0100, L3300.8200, L3300.9900, L3410.9992, L7400.3000, L3410.9996, L3410.9994 ####[facility] [address] [place], [address] Globulin (S) [Mass/Vol] 4.0 g/dL Normal 2.2-4.2 [facility] Comment on above: Performed By: #### L 100.0500, L500.4050, L501.2300, L501.5000, L501.5200, L501.6710, L503.0106, L506.1001, L3300.0100, L3300.8200, L3300.9900, L3410.9992, L7400.3000, L3410.9996, L3410.9994 ####[facility] [address] [place], [place], [phone] Glucose [Mass/Vol] 148 mg/dL High 70-99 [facility] Comment on above: Performed By: #### L 100.0500, L500.4050, L501.2300, L501.5000, L501.5200, L501.6710, L503.0106, L506.1001, L3300.0100, L3300.8200, L3300.9900, L3410.9992, L7400.3000, L3410.9996, L3410.9994 ####[facility] [address] [place], [address] Potassium [Moles/Vol] 2.6 mmol/L Invalid Interpretation Code 3.3-5.1 [facility] Comment on above: Result Comment: Crit ical Result(s) Called at: 1539 by:??CLAUDIA ALEXANDRE Results read back by same. Performed By: #### L 100.0500, L500.4050, L501.2300, L501.5000, L501.5200, L501.6710, L503.0106, L506.1001, L3300.0100, L3300.8200, L3300.9900, L3410.9992, L7400.3000, L3410.9996, L3410.9994 ####[facility] [address] [place], [place], [phone] Sodium [Moles/Vol] 137 mmol/L Normal 133-145 [facility] Comment on above: Performed By: #### L 100.0500, L500.4050, L501.2300, L501.5000, L501.5200, L501.6710, L503.0106, L506.1001, L3300.0100, L3300.8200, L3300.9900, L3410.9992, L7400.3000, L3410.9996, L3410.9994 ####[facility] [address] [place], [place], [id number] T PROT 7.4 g/dL Normal 5.9-8.4 [facility] Comment on above: Performed By: #### L 100.0500, L500.4050, L501.2300, L501.5000, L501.5200, L501.6710, L503.0106, L506.1001, L3300.0100, L3300.8200, L3300.9900, L3410.9992, L7400.3000, L3410.9996, L3410.9994 ####[facility] [address] [place], [place], [phone] Urea nitrogen [Mass/Vol] 17 mg/dL Normal 4-19 [facility] Comment on above: Performed By: #### L 100.0500, L500.4050, L501.2300, L501.5000, L501.5200, L501.6710, L503.0106, L506.1001, L3300.0100, L3300.8200, L3300.9900, L3410.9992, L7400.3000, L3410.9996, L3410.9994 ####[facility] [address] [place], [place], [phone] Magnesiumon 01-08-2025 Magnesium [Mass/Vol] 2.1 mg/dL Normal 1.5-2.2 [facility] Comment on above: Performed By: #### L 100.0500, L500.4050, L501.2300, L501.5000, L501.5200, L501.6710, L503.0106, L506.1001, L3300.0100, L3300.8200, L3300.9900, L3410.9992, L7400.3000, L3410.9996, L3410.9994 ####[facility] [address] [place], [place], [phone] Phosphoruson 01-08-2025 Phosphate [Mass/Vol] 2.9 mg/dL Normal 2.7-4.5 [facility] Comment on above: Performed By: #### L 100.0500, L500.4050, L501.2300, L501.5000, L501.5200, L501.6710, L503.0106, L506.1001, L3300.0100, L3300.8200, L3300.9900, L3410.9992, L7400.3000, L3410.9996, L3410.9994 ####[facility] [address] [facility]. [place], [place], [address] Triglycerideson 01-08-2025 Triglyceride [Mass/Vol] 90 mg/dL Normal [facility] Comment on above: Result Comment: The drugs N-Acetylcysteine and Metamizole may falselydepress this assay.Normal range: <150 mg/dLBorderline High: 150-199 mg/dLHigh: 200-499 mg/dLVery High: >500 mg/dL Performed By: #### L 100.0500, L500.4050, L501.2300, L501.5000, L501.5200, L501.6710, L503.0106, L506.1001, L3300.0100, L3300.8200, L3300.9900, L3410.9992, L7400.3000, L3410.9996, L3410.9994 ####[facility] [address] [place], [address] Vitamin B12on 01-08-2025 Cobalamin (Vitamin B12) [Mass/Vol] 381 pg/mL Normal 180-914 [facility] Comment on above: Performed By: #### L 100.0500, L500.4050, L501.2300, L501.5000, L501.5200, L501.6710, L503.0106, L506.1001, L3300.0100, L3300.8200, L3300.9900, L3410.9992, L7400.3000, L3410.9996, L3410.9994 ####[facility] [address] [place], [address] Vitamin D,25 Hydroxyon 01-08 Vitamin D 25-OH 8.9 ng/mL Low 30-100 [facility] Comment on above: Result Comment: Yamileth min D StatusDeficiency: <20 ng/mL (50nmol/L)Insufficiency: 20-30 ng/mL (50-75 nmol/L)Sufficiency: 30-100 ng/mL (75-250 nmol/L)Toxicity: >100 ng/mL (>250 nmol/L) Performed By: #### L 100.0500, L500.4050, L501.2300, L501.5000, L501.5200, L501.6710, L503.0106, L506.1001, L3300.0100, L3300.8200, L3300.9900, L3410.9992, L7400.3000, L3410.9996, L3410.9994 ####[facility] [address] [place], [address] CNOVon 12-31-2024 CNOV Normal [facility] CNPNon 12-25-2024 CNPN Normal [facility] CNPTOUTREACHon 12-25-2024 CNPTOUTREACH Normal [facility] CBC W/Diff, Automatedon 06-3 0-2024 Absolute Lymph 2.63 X10 3/uL Normal 0.83-4.51 [facility] Comment on above: Performed By: #### L 100.0100, L500.4050, L501.2300, L501.5200 ####[facility] [address] [place], [address] Absolute Neut 7.8 X10 3/uL High 2.0-7.7 [facility] Comment on above: Performed By: #### L 100.0100, L500.4050, L501.2300, L501.5200 ####[facility] [address] [place], [address] Basophils/100 WBC (Bld) 0.4 % Normal 0-1 [facility] Comment on above: Performed By: #### L 100.0100, L500.4050, L501.2300, L501.5200 ####[facility] [address] [place], [address] Eosinophils/100 WBC (Bld) 2.6 % Normal 0-5 [facility] Comment on above: Performed By: #### L 100.0100, L500.4050, L501.2300, L501.5200 ####[facility] [address] [place], [address] Erythrocyte distribution width (RBC) [Ratio] 19.0 % High 11.6-14.6 [facility] Comment on above: Performed By: #### L 100.0100, L500.4050, L501.2300, L501.5200 ####[facility] [address] [place], [address] Hematocrit (Bld) [Volume fraction] 32.9 % Low 37-47 [facility] Comment on above: Performed By: #### L 100.0100, L500.4050, L501.2300, L501.5200 ####[facility] [address] [place], [address] Hemoglobin (Bld) [Mass/Vol] 10.4 g/dL Low 12.0-15.0 [facility] Comment on above: Performed By: #### L 100.0100, L500.4050, L501.2300, L501.5200 ####[facility] [address] [place], [address] IG% 0.600 Normal 0.0-0.9 [facility] Comment on above: Result Comment: IG% - Immature Granulocytes (promyelocytes, myelocytes andmetamyelocytes) > 1% indicates that a LEFT SHIFT is Present. Performed By: #### L 100.0100, L500.4050, L501.2300, L501.5200 ####[facility] [address] [place], [address] Lymphocytes/100 WBC (Bld) 22.8 % Normal 19-41 [facility] Comment on above: Performed By: #### L 100.0100, L500.4050, L501.2300, L501.5200 ####[facility] [address] [place], [address] MCH (RBC) [Entitic mass] 27.2 pg Normal 27.0-32.0 [facility] Comment on above: Performed By: #### L 100.0100, L500.4050, L501.2300, L501.5200 ####[facility] [address] [place], [address] MCHC (RBC) [Mass/Vol] 31.6 g/dL Low 32-36 [facility] Comment on above: Performed By: #### L 100.0100, L500.4050, L501.2300, L501.5200 ####[facility] [address] [place], [address] MCV (RBC) [Entitic vol] 85.9 fL Normal 81-99 [facility] Comment on above: Performed By: #### L 100.0100, L500.4050, L501.2300, L501.5200 ####[facility] [address] [place], [address] Monocytes/100 WBC (Bld) 5.7 % Normal 0-10 [facility] Comment on above: Performed By: #### L 100.0100, L500.4050, L501.2300, L501.5200 ####[facility] [address] [place], [address] Neutrophils/100 WBC (Bld) 67.9 % Normal 47-70 [facility] Comment on above: Performed By: #### L 100.0100, L500.4050, L501.2300, L501.5200 ####[facility] [address] [place], [address] Nucleated RBC (Bld) [#/Vol] 0 10*3/uL Normal 0-5 [facility] Comment on above: Performed By: #### L 100.0100, L500.4050, L501.2300, L501.5200 ####[facility] [address] [place], [address] Platelet mean volume (Bld) [Entitic vol] 9.2 fL Normal 6.2-12.0 [facility] Comment on above: Performed By: #### L 100.0100, L500.4050, L501.2300, L501.5200 ####[facility] [address] [place], [address] Platelets (Bld) [#/Vol] 500 10*3/uL High 150-450 [facility] Comment on above: Performed By: #### L 100.0100, L500.4050, L501.2300, L501.5200 ####[facility] [address] [place], [address] RBC (Bld) [#/Vol] 3.83 10*6/uL Low 4.2-5.4 [facility] Comment on above: Performed By: #### L 100.0100, L500.4050, L501.2300, L501.5200 ####[facility] [address] [place], [address] RDW SD 59.3 fl High 35.1-43.9 [facility] Comment on above: Performed By: #### L 100.0100, L500.4050, L501.2300, L501.5200 ####[facility] [address] [place], [address] WBC (Bld) [#/Vol] 11.5 10*3/uL High 4.4-11.0 [facility] Comment on above: Performed By: #### L 100.0100, L500.4050, L501.2300, L501.5200 ####[facility] [address] [place], [address] Comprehensive Metabolic Prof [facility] 12-24-2024 Albumin [Mass/Vol] 3.6 g/dL Normal 3.5-5.0 [facility] Comment on above: Performed By: #### L 100.0100, L500.4050, L501.2300, L501.5200 ####[facility] [address] [place], [address] Albumin/Globulin [Mass ratio] 0.9 {ratio} Normal 0.9-2.4 [facility] Comment on above: Performed By: #### L 100.0100, L500.4050, L501.2300, L501.5200 ####[facility] [address] [place], [address] ALK PHOS 192 U/L High 35-104 [facility] Comment on above: Performed By: #### L 100.0100, L500.4050, L501.2300, L501.5200 ####[facility] [address] [place], [address] ALT [Catalytic activity/Vol] 77 U/L High <=34 [facility] Comment on above: Performed By: #### L 100.0100, L500.4050, L501.2300, L501.5200 ####[facility] [address] [place], [address] AST [Catalytic activity/Vol] 42 U/L High <=31 [facility] Comment on above: Performed By: #### L 100.0100, L500.4050, L501.2300, L501.5200 ####[facility] [address] [place], [address] Bilirubin [Mass/Vol] 0.28 mg/dL Normal 0.00-1.30 [facility] Comment on above: Performed By: #### L 100.0100, L500.4050, L501.2300, L501.5200 ####[facility] [address] [place], [address] BUN/CRE 25.0 RATIO High 10-20 [facility] Comment on above: Performed By: #### L 100.0100, L500.4050, L501.2300, L501.5200 ####[facility] [address] [place], [address] Calcium [Mass/Vol] 9.1 mg/dL Normal 7.6-11.0 [facility] Comment on above: Performed By: #### L 100.0100, L500.4050, L501.2300, L501.5200 ####[facility] [address] [place], [address] Chloride [Moles/Vol] 105 mmol/L Normal 98-108 [facility] Comment on above: Performed By: #### L 100.0100, L500.4050, L501.2300, L501.5200 ####[facility] [address] [place], [address] CO2 [Moles/Vol] 20.1 mmol/L Low 21.0-32.0 [facility] Comment on above: Performed By: #### L 100.0100, L500.4050, L501.2300, L501.5200 ####[facility] [address] [place], [address] Creatinine [Mass/Vol] 0.94 mg/dL Normal 0.70-1.20 [facility] Comment on above: Performed By: #### L 100.0100, L500.4050, L501.2300, L501.5200 ####[facility] [address] [place], [address] GAP 14 Normal 5-15 [facility] Comment on above: Performed By: #### L 100.0100, L500.4050, L501.2300, L501.5200 ####[facility] [address] [place], [address] GFR/1.73 sq M.predicted among non-blacks MDRD (S/P/Bld) [Vol rate/Area] 79 mL/min/{1.73_m2} Normal >60 [facility] Comment on above: Result Comment: mL/m in/1.73m2 CKD-EPI Creatinine Equation (2020) Performed By: #### L 100.0100, L500.4050, L501.2300, L501.5200 ####[facility] [address] [place], [address] Globulin (S) [Mass/Vol] 3.8 g/dL Normal 2.2-4.2 [facility] Comment on above: Performed By: #### L 100.0100, L500.4050, L501.2300, L501.5200 ####[facility] [address] [place], [address] Glucose [Mass/Vol] 104 mg/dL High 70-99 [facility] Comment on above: Performed By: #### L 100.0100, L500.4050, L501.2300, L501.5200 ####[facility] [address] [place], [address] Potassium [Moles/Vol] 3.7 mmol/L Normal 3.3-5.1 [facility] Comment on above: Performed By: #### L 100.0100, L500.4050, L501.2300, L501.5200 ####[facility] [address] [place], [address] Sodium [Moles/Vol] 139 mmol/L Normal 133-145 [facility] Comment on above: Performed By: #### L 100.0100, L500.4050, L501.2300, L501.5200 ####[facility] [address] [place], [address] T PROT 7.3 g/dL Normal 5.9-8.4 [facility] Comment on above: Performed By: #### L 100.0100, L500.4050, L501.2300, L501.5200 ####[facility] [address] [place], [address] Urea nitrogen [Mass/Vol] 23 mg/dL High 4-19 [facility] Comment on above: Performed By: #### L 100.0100, L500.4050, L501.2300, L501.5200 ####[facility] [address] [place], [address] Magnesiumon 12-24-2024 Magnesium [Mass/Vol] 2.1 mg/dL Normal 1.5-2.2 [facility] Comment on above: Performed By: #### L 100.0100, L500.4050, L501.2300, L501.5200 ####[facility] [address] [place], [address] Phosphoruson 12-24-2024 Phosphate [Mass/Vol] 3.7 mg/dL Normal 2.7-4.5 [facility] Comment on above: Performed By: #### L 100.0100, L500.4050, L501.2300, L501.5200 ####[facility] [address] [place], [address] CASE MANAGEMon 12-21-2024 CASE MANAGEM Normal [facility] CBC W Auto Differential pane l (Bld)on 12-21-2024 Basophils (Bld) [#/Vol] 0.03 10*3/uL Normal <0.11 [facility] Comment on above: Order Comment: Speci men Type: BLOOD SPECIMENOrdering Facility: [facility] Address: [address] [place] [address] Performed By: #### 5 7021-8 ####[facility] LABCLIA [id number] [place] [id number] [place] Basophils/100 WBC (Bld) 0.4 % Normal [facility] Comment on above: Order Comment: Speci men Type: BLOOD SPECIMENOrdering Facility: [facility] Address: [address] [place] [address] Performed By: #### 5 7021-8 ####[facility] LABCLIA [id number] [place] [address] [place] Differential cell count method Nom (Bld) Auto Normal [facility] Comment on above: Order Comment: Speci men Type: BLOOD SPECIMENOrdering Facility: [facility] Address: [address] [place] [address] Performed By: #### 5 7021-8 ####[facility] LABCLIA [id number] [place] [id number] [place] Eosinophils (Bld) [#/Vol] 0.30 10*3/uL Normal <0.46 [facility] Comment on above: Order Comment: Speci men Type: BLOOD SPECIMENOrdering Facility: [facility] Address: [address] [place] [address] Performed By: #### 5 7021-8 ####[facility] LABCLIA [id number] [address], [facility] [place] Eosinophils/100 WBC (Bld) 4.0 % Normal [facility] Comment on above: Order Comment: Speci men Type: BLOOD SPECIMENOrdering Facility: [facility] Address: [address] [place] [address] Performed By: #### 5 7021-8 ####[facility] LABIA [id number] [place] [address] [place] Erythrocyte distribution width (RBC) [Ratio] 19.8 % High 11.5-15.0 [facility] Comment on above: Order Comment: Speci men Type: BLOOD SPECIMENOrdering Facility: [facility] Address: [address] [place] [address] Performed By: #### 5 7021-8 ####[facility] LABIA [id number] [place] [address] [place] Hematocrit (Bld) [Volume fraction] 30.5 % Low 36.0-46.0 [facility] Comment on above: Order Comment: Speci men Type: BLOOD SPECIMENOrdering Facility: [facility] Address: [address] [place] [address] Performed By: #### 5 7021-8 ####[facility] LABIA [id number] [place] [address] [place] Hemoglobin (Bld) [Mass/Vol] 9.7 g/dL Low 11.5-15.5 [facility] Comment on above: Order Comment: Speci men Type: BLOOD SPECIMENOrdering Facility: [facility] Address: [address] [place] [address] Performed By: #### 5 7021-8 ####[facility] LABIA [id number] [place] [address] [place] Immature granulocytes (Bld) [#/Vol] 0.05 10*3/uL Normal <0.10 [facility] Comment on above: Order Comment: Speci men Type: BLOOD SPECIMENOrdering Facility: [facility] Address: [address] [place] [address] Performed By: #### 5 7021-8 ####[facility] LABCLIA [id number] [place] [address] [place] Immature granulocytes/100 WBC (Bld) 0.7 % Normal [facility] Comment on above: Order Comment: Speci men Type: BLOOD SPECIMENOrdering Facility: [facility] Address: [address] [place] [address] Performed By: #### 5 7021-8 ####[facility] LABIA [id number] [place] [address] [place] Lymphocytes (Bld) [#/Vol] 1.12 10*3/uL Normal 1.00-4.00 [facility] Comment on above: Order Comment: Speci men Type: BLOOD SPECIMENOrdering Facility: [facility] Address: [address] [place] [address] Performed By: #### 5 7021-8 ####[facility] LABIA [id number] [place] [address] [place] Lymphocytes/100 WBC (Bld) 14.9 % Normal [facility] Comment on above: Order Comment: Speci men Type: BLOOD SPECIMENOrdering Facility: [facility] Address: [address] [place] [address] Performed By: #### 5 7021-8 ####[facility] LABIA [id number] [place] [address] [place] MCH (RBC) [Entitic mass] 27.4 pg Normal 26.0-34.0 [facility] Comment on above: Order Comment: Speci men Type: BLOOD SPECIMENOrdering Facility: [facility] Address: [address] [place] [address] Performed By: #### 5 7021-8 ####[facility] LABIA [id number] [place] [address] [place] MCHC (RBC) [Mass/Vol] 31.8 g/dL Normal 30.5-36.0 [facility] Comment on above: Order Comment: Speci men Type: BLOOD SPECIMENOrdering Facility: [facility] Address: [address] [place] [address] Performed By: #### 5 7021-8 ####[facility] LABIA [id number] [place] [address] [place] MCV (RBC) [Entitic vol] 86.2 fL Normal 80.0-100.0 [facility] Comment on above: Order Comment: Speci men Type: BLOOD SPECIMENOrdering Facility: [facility] Address: [address] [place] [address] Performed By: #### 5 7021-8 ####[facility] LABIA [id number] [place] [address] [place] Monocytes (Bld) [#/Vol] 0.58 10*3/uL Normal <0.87 [facility] Comment on above: Order Comment: Speci men Type: BLOOD SPECIMENOrdering Facility: [facility] Address: [address] [place] [address] Performed By: #### 5 7021-8 ####[facility] LABIA [id number] [place] [address] [place] Monocytes/100 WBC (Bld) 7.7 % Normal [facility] Comment on above: Order Comment: Speci men Type: BLOOD SPECIMENOrdering Facility: [facility] Address: [address] [place] [address] Performed By: #### 5 7021-8 ####[facility] LABIA [id number] [place] [address] [place] Neutrophils (Bld) [#/Vol] 5.45 10*3/uL Normal 1.45-7.50 [facility] Comment on above: Order Comment: Speci men Type: BLOOD SPECIMENOrdering Facility: [facility] Address: [address] [place] [address] Performed By: #### 5 7021-8 ####[facility] LABCLIA [id number] [place] [address] [place] Neutrophils/100 WBC (Bld) 72.3 % Normal [facility] Comment on above: Order Comment: Speci men Type: BLOOD SPECIMENOrdering Facility: [facility] Address: [address] [place] [address] Performed By: #### 5 7021-8 ####[facility] LABCLIA [id number] [place] [address] [place] Nucleated RBC (Bld) [#/Vol] 10*3/uL Normal <0.01 [facility] Comment on above: Order Comment: Speci men Type: BLOOD SPECIMENOrdering Facility: [facility] Address: [address] [place] [address] Performed By: #### 5 7021-8 ####[facility] LABIA [id number] [place] [address] [place] Nucleated RBC/100 WBC (Bld) [Ratio] 0.0 /100 WBC Normal [facility] Comment on above: Order Comment: Speci men Type: BLOOD SPECIMENOrdering Facility: [facility] Address: [address] [place] [address] Performed By: #### 5 7021-8 ####[facility] LABIA [id number] [place] [id number] [place] Platelet mean volume (Bld) [Entitic vol] 9.7 fL Normal 9.0-12.7 [facility] Comment on above: Order Comment: Speci men Type: BLOOD SPECIMENOrdering Facility: [facility] Address: [address] [place] [address] Performed By: #### 5 7021-8 ####[facility] LABIA [id number] [place] [id number] [place] Platelets (Bld) [#/Vol] 428 10*3/uL High 150-400 [facility] Comment on above: Order Comment: Speci men Type: BLOOD SPECIMENOrdering Facility: [facility] Address: [address] [place] [address] Performed By: #### 5 7021-8 ####[facility] LABCLIA [id number] [place] [address] [place] RBC (Bld) [#/Vol] 3.54 10*6/uL Low 3.90-5.20 [facility] Comment on above: Order Comment: Speci men Type: BLOOD SPECIMENOrdering Facility: [facility] Address: [address] [place] [address] Performed By: #### 5 7021-8 ####[facility] LABCLIA [id number] [place] [address] [place] WBC (Bld) [#/Vol] 7.53 10*3/uL Normal 3.70-11.00 [facility] Comment on above: Order Comment: Speci men Type: BLOOD SPECIMENOrdering Facility: [facility] Address: [address] [place] [address] Performed By: #### 5 7021-8 ####[facility] [id number] [place] [address] [place] CNCNPATEDon 12-21-2024 CNCNPATED Normal [facility] CNPNon 12-21-2024 CNPN Normal [facility] CONSULT PROGon 12-21-2024 CONSULT PROG Normal [facility] CONSULT PROG Normal [facility] CRP SerPl-mCncon 12-21-2024 CRP [Mass/Vol] 2.9 mg/dL High <0.9 [facility] Comment on above: Order Comment: Speci men Type: BLOOD SPECIMENOrdering Facility: [facility] Address: [address] [place] [address] Performed By: #### 1 988-5 ####[facility] LABCLIA [id number] [address] [address] [place] Comprehensive metabolic 2000 panelon 12-21-2024 Albumin [Mass/Vol] 2.9 g/dL Low 3.9-4.9 [facility] Comment on above: Order Comment: Speci men Type: BLOOD SPECIMENOrdering Facility: [facility] Address: [address] [place] [address] Performed By: #### 2 4323-8, , 2776- ####[facility] LABCLIA [id number] [address] [address] [place] ALP [Catalytic activity/Vol] 123 U/L Normal 34-123 [facility] Comment on above: Order Comment: Speci men Type: BLOOD SPECIMENOrdering Facility: [facility] Address: [address] [place] [address] Performed By: #### 2 4323-8, , 2776-06 ####[facility] LABCLIA [id number] [address] [address] [place] ALT [Catalytic activity/Vol] 34 U/L Normal 7-38 [facility] Comment on above: Order Comment: Speci men Type: BLOOD SPECIMENOrdering Facility: [facility] Address: [address] [place], [place] [address] Performed By: #### 2 4323-8, , 2776-06 ####[facility] LABCLIA [id number] [address] [address] [place] Anion gap [Moles/Vol] 9 mmol/L Normal 8-15 [facility] Comment on above: Order Comment: Speci men Type: BLOOD SPECIMENOrdering Facility: [facility] Address: [address] [place], [place] [address] Performed By: #### 2 4323-8, 32973-4, 2776- ####[facility] LABCLIA [id number] [place] [id number] [place] AST [Catalytic activity/Vol] 26 U/L Normal 13-35 [facility] Comment on above: Order Comment: Speci men Type: BLOOD SPECIMENOrdering Facility: [facility] Address: [address] [place] [address] Performed By: #### 2 4323-8, , 2776-06 ####[facility] LABCLIA [id number] [place] [address] [place] Bilirubin [Mass/Vol] 0.2 mg/dL Normal 0.2-1.3 [facility] Comment on above: Order Comment: Speci men Type: BLOOD SPECIMENOrdering Facility: [facility] Address: [address] [place] [address] Performed By: #### 2 4323-8, , 2776-06 ####[facility] LABIA [id number] [place] [id number] [place] Calcium [Mass/Vol] 9.1 mg/dL Normal 8.5-10.2 [facility] Comment on above: Order Comment: Speci men Type: BLOOD SPECIMENOrdering Facility: [facility] Address: [address] [place] [address] Performed By: #### 2 4323-8, , 2776-06 ####[facility] LABIA [id number] [place] [address] [place] Chloride [Moles/Vol] 105 mmol/L Normal 98-107 [facility] Comment on above: Order Comment: Speci men Type: BLOOD SPECIMENOrdering Facility: [facility] Address: [address] [place] [address] Performed By: #### 2 4323-8, , 2776-06 ####[facility] LABIA [id number] [address] [place] [address] [place] CO2 [Moles/Vol] 23 mmol/L Normal 22-30 [facility] Comment on above: Order Comment: Dora finch Type: BLOOD SPECIMENOrdering Facility: [facility] Address: [address] [place] [address] Performed By: #### 2 4323-8, , 2776-06 ####[facility] LABCLIA [id number] [place] [id number] [place] Creatinine [Mass/Vol] 0.70 mg/dL Normal 0.58-0.96 [facility] Comment on above: Order Comment: Dora finch Type: BLOOD SPECIMENOrdering Facility: [facility] Address: [address] [place] [address] Performed By: #### 2 4323-8, , 2776-06 ####[facility] LABCLIA [id number] [address] STATES OF [facility] Creatinine and Glomerular filtration rate.predicted panel (S/P/Bld) 112 mL/min/1.73m??? Normal >=60 [facility] Comment on above: Order Comment: Dora finch Type: BLOOD SPECIMENOrdering Facility: [facility] Address: [address] [place] [address] Result Comment: Zeny mated Glomerular Filtration Rate [...] Performed By: #### 2 4323-8, , 2776-06 ####[facility] LABCLIA [id number] [place] [id number] [place] Glucose [Mass/Vol] 125 mg/dL High 74-99 [facility] Comment on above: Order Comment: Florii men Type: BLOOD SPECIMENOrdering Facility: [facility] Address: [address] [place] [address] Result Comment: The [place] (ADA) provides guidance for cutoff [...] Standards of Medical Care in Diabetes 2016, [place] [employer]. Diabetes Care. 2016.39(Suppl 1). Performed By: #### 2 4323-8, , 2776-06 ####[facility] LABCLIA [id number] [place] [address] [place] Potassium [Moles/Vol] 4.1 mmol/L Normal 3.7-5.1 [facility] Comment on above: Order Comment: Speci men Type: BLOOD SPECIMENOrdering Facility: [facility] Address: [address] [place] [address] Performed By: #### 2 4323-8, , 2776-06 ####[facility] LABCLIA [id number] [place] [id number] [place] Protein [Mass/Vol] 6.2 g/dL Low 6.3-8.0 [facility] Comment on above: Order Comment: Speci men Type: BLOOD SPECIMENOrdering Facility: [facility] Address: [address] [place], [place] [address] Performed By: #### 2 4323-8, , 2776-06 ####[facility] LABCLIA [id number] [facility] [address] [address] [place] Sodium [Moles/Vol] 137 mmol/L Normal 136-144 [facility] Comment on above: Order Comment: Speci men Type: BLOOD SPECIMENOrdering Facility: [facility] Address: [address] [place] [address] Performed By: #### 2 4323-8, , 2776-06 ####[facility] LABCLIA [id number] [address] [place] [address] [place] Urea nitrogen [Mass/Vol] 15 mg/dL Normal 7-21 [facility] Comment on above: Order Comment: Speci men Type: BLOOD SPECIMENOrdering Facility: [facility] Address: [address] [place], [place] [address] Performed By: #### 2 4323-8, , 2776-06 ####[facility] LABCLIA [id number] [address] [place] [address] [place] Magnesium SerPl-mCncon 12-21 Magnesium [Mass/Vol] 2.1 mg/dL Normal 1.7-2.3 [facility] Comment on above: Order Comment: Speci men Type: BLOOD SPECIMENOrdering Facility: [facility] Address: [address] [place], [place] [id number] Performed By: #### 2 432-8, , 2776-06 ####[facility] LABCLIA [id number] [address] [place] [address] [place] PT EDon 12-21-2024 PT ED Normal [facility] PT ED Normal [facility] Phosphate SerPl-mCncon 12-21 Phosphate [Mass/Vol] 4.4 mg/dL Normal 2.7-4.8 [facility] Comment on above: Order Comment: Speci men Type: BLOOD SPECIMENOrdering Facility: [facility] Address: [address] [place] [id number] Performed By: #### 2 4323-8, , 2776-06 ####[facility] LABCLIA [id number] [address] [place] [address] [place] CASE MANAGEMon 12-20-2024 CASE MANAGEM Normal [facility] CASE MANAGEM Normal [facility] CBC W Auto Differential pane l (Bld)on 12-20-2024 Basophils (Bld) [#/Vol] 0.04 10*3/uL Normal <0.11 [facility] Comment on above: Order Comment: Speci men Type: BLOOD SPECIMENOrdering Facility: [facility] Address: [address] [place] [address] Performed By: #### 5 7021-8 ####[facility] LABIA [id number] [facility] [place] [address] [place] Basophils/100 WBC (Bld) 0.5 % Normal [facility] Comment on above: Order Comment: Speci men Type: BLOOD SPECIMENOrdering Facility: [facility] Address: [address] [place] [address] Performed By: #### 5 7021-8 ####[facility] LABCLIA [id number] [facility] [address] [place] Differential cell count method Nom (Bld) Auto Normal [facility] Comment on above: Order Comment: Speci men Type: BLOOD SPECIMENOrdering Facility: [facility] Address: [address] [place] [address] Performed By: #### 5 7021-8 ####[facility] LABCLIA [id number] [facility] [address] [place] Eosinophils (Bld) [#/Vol] 0.25 10*3/uL Normal <0.46 [facility] Comment on above: Order Comment: Speci men Type: BLOOD SPECIMENOrdering Facility: [facility] Address: [address] [place] [address] Performed By: #### 5 7021-8 ####[facility] LABCLIA [id number] [facility] [address] [place] Eosinophils/100 WBC (Bld) 3.4 % Normal [facility] Comment on above: Order Comment: Speci men Type: BLOOD SPECIMENOrdering Facility: [facility] Address: [address] [place] [address] Performed By: #### 5 7021-8 ####[facility] LABIA [id number] [place] [address] [place] Erythrocyte distribution width (RBC) [Ratio] 20.0 % High 11.5-15.0 [facility] Comment on above: Order Comment: Speci men Type: BLOOD SPECIMENOrdering Facility: [facility] Address: [address] [place] [address] Performed By: #### 5 7021-8 ####[facility] LABIA [id number] [place] [address] [place] Hematocrit (Bld) [Volume fraction] 26.9 % Low 36.0-46.0 [facility] Comment on above: Order Comment: Speci men Type: BLOOD SPECIMENOrdering Facility: [facility] Address: [address] [place] [address] Performed By: #### 5 7021-8 ####[facility] LABIA [id number] [place] [address] [place] Hemoglobin (Bld) [Mass/Vol] 8.6 g/dL Low 11.5-15.5 [facility] Comment on above: Order Comment: Speci men Type: BLOOD SPECIMENOrdering Facility: [facility] Address: [address] [place] [address] Performed By: #### 5 7021-8 ####[facility] LABIA [id number] [place] [address] [place] Immature granulocytes (Bld) [#/Vol] 0.05 10*3/uL Normal <0.10 [facility] Comment on above: Order Comment: Speci men Type: BLOOD SPECIMENOrdering Facility: [facility] Address: [address] [place] [address] Performed By: #### 5 7021-8 ####[facility] LABCLIA [id number] [place] [address] [place] Immature granulocytes/100 WBC (Bld) 0.7 % Normal [facility] Comment on above: Order Comment: Speci men Type: BLOOD SPECIMENOrdering Facility: [facility] Address: [address] [place] [address] Performed By: #### 5 7021-8 ####[facility] LABCLIA [id number] [place] [address] [place] Lymphocytes (Bld) [#/Vol] 1.26 10*3/uL Normal 1.00-4.00 [facility] Comment on above: Order Comment: Speci men Type: BLOOD SPECIMENOrdering Facility: [facility] Address: [address] [place] [address] Performed By: #### 5 7021-8 ####[facility] LABIA [id number] [place] [address] [place] Lymphocytes/100 WBC (Bld) 17.0 % Normal [facility] Comment on above: Order Comment: Speci men Type: BLOOD SPECIMENOrdering Facility: [facility] Address: [address] [place] [address] Performed By: #### 5 7021-8 ####[facility] LABIA [id number] [place] [address] [place] MCH (RBC) [Entitic mass] 27.0 pg Normal 26.0-34.0 [facility] Comment on above: Order Comment: Speci men Type: BLOOD SPECIMENOrdering Facility: [facility] Address: [address] [place] [address] Performed By: #### 5 7021-8 ####[facility] LABIA [id number] [place] [address] [place] MCHC (RBC) [Mass/Vol] 32.0 g/dL Normal 30.5-36.0 [facility] Comment on above: Order Comment: Speci men Type: BLOOD SPECIMENOrdering Facility: [facility] Address: [address] [place] [address] Performed By: #### 5 7021-8 ####[facility] LABCLIA [id number] [place] [address] [place] MCV (RBC) [Entitic vol] 84.6 fL Normal 80.0-100.0 [facility] Comment on above: Order Comment: Speci men Type: BLOOD SPECIMENOrdering Facility: [facility] Address: [address] [place] [address] Performed By: #### 5 7021-8 ####[facility] LABIA [id number] [place] [address] [place] Monocytes (Bld) [#/Vol] 0.50 10*3/uL Normal <0.87 [facility] Comment on above: Order Comment: Speci men Type: BLOOD SPECIMENOrdering Facility: [facility] Address: [address] [place] [address] Performed By: #### 5 7021-8 ####[facility] LABIA [id number] [place] [address] [place] Monocytes/100 WBC (Bld) 6.7 % Normal [facility] Comment on above: Order Comment: Speci men Type: BLOOD SPECIMENOrdering Facility: [facility] Address: [address] [place] [address] Performed By: #### 5 7021-8 ####[facility] LABIA [id number] [place] [address] [place] Neutrophils (Bld) [#/Vol] 5.33 10*3/uL Normal 1.45-7.50 [facility] Comment on above: Order Comment: Speci men Type: BLOOD SPECIMENOrdering Facility: [facility] Address: [address] [place] [address] Performed By: #### 5 7021-8 ####[facility] LABCLIA [id number] [place] [address] [place] Neutrophils/100 WBC (Bld) 71.7 % Normal [facility] Comment on above: Order Comment: Speci men Type: BLOOD SPECIMENOrdering Facility: [facility] Address: [address] [place] [address] Performed By: #### 5 7021-8 ####[facility] LABCLIA [id number] [address], [place] [address] [place] Nucleated RBC (Bld) [#/Vol] 10*3/uL Normal <0.01 [facility] Comment on above: Order Comment: Speci men Type: BLOOD SPECIMENOrdering Facility: [facility] Address: [address] [place] [address] Performed By: #### 5 7021-8 ####[facility] LABIA [id number] [place] [address] [place] Nucleated RBC/100 WBC (Bld) [Ratio] 0.0 /100 WBC Normal [facility] Comment on above: Order Comment: Speci men Type: BLOOD SPECIMENOrdering Facility: [facility] Address: [address] [place] [address] Performed By: #### 5 7021-8 ####[facility] LABIA [id number] [place] [address] [place] Platelet mean volume (Bld) [Entitic vol] 9.2 fL Normal 9.0-12.7 [facility] Comment on above: Order Comment: Speci men Type: BLOOD SPECIMENOrdering Facility: [facility] Address: [address] [place] [address] Performed By: #### 5 7021-8 ####[facility] LABCLIA [id number] [place] [address] [place] Platelets (Bld) [#/Vol] 365 10*3/uL Normal 150-400 [facility] Comment on above: Order Comment: Speci men Type: BLOOD SPECIMENOrdering Facility: [facility] Address: [address] [place] [address] Performed By: #### 5 7021-8 ####[facility] LABCLIA [id number] [place] [address] [place] RBC (Bld) [#/Vol] 3.18 10*6/uL Low 3.90-5.20 [facility] Comment on above: Order Comment: Speci men Type: BLOOD SPECIMENOrdering Facility: [facility] Address: [address] [place] [address] Performed By: #### 5 7021-8 ####[facility] LABCLIA [id number] [place] [address] [place] WBC (Bld) [#/Vol] 7.43 10*3/uL Normal 3.70-11.00 [facility] Comment on above: Order Comment: Speci men Type: BLOOD SPECIMENOrdering Facility: [facility] Address: [address] [place] [address] Performed By: #### 5 7021-8 ####[facility] LABIA [id number] [place] [address] [place] CONSULTon 12-20-2024 CONSULT Normal [facility] CONSULT Normal [facility] CONSULT PROGon 12-20-2024 CONSULT PROG Normal [facility] Comprehensive metabolic 2000 panelon 12-20-2024 Albumin [Mass/Vol] 2.7 g/dL Low 3.9-4.9 [facility] Comment on above: Order Comment: Speci men Type: BLOOD SPECIMENOrdering Facility: [facility] Address: [address] [place] [address] Performed By: #### 1 9123-9, 63882-2, 2777-1 ####[facility] LABCLIA [id number] [address] [place] [address] [place] ALP [Catalytic activity/Vol] 95 U/L Normal 34-123 [facility] Comment on above: Order Comment: Speci men Type: BLOOD SPECIMENOrdering Facility: [facility] Address: [address] [place] [address] Performed By: #### 1 9123-9, 14214-4, 277- ####[facility] LABCLIA [id number] [address] [address] [place] ALT [Catalytic activity/Vol] 23 U/L Normal 7-38 [facility] Comment on above: Order Comment: Speci men Type: BLOOD SPECIMENOrdering Facility: [facility] Address: [address] [place] [address] Performed By: #### 1 9123-9, 69690-6, 277- ####[facility] LABCLIA [id number] [place] [address] [place] Anion gap [Moles/Vol] 11 mmol/L Normal 8-15 [facility] Comment on above: Order Comment: Speci men Type: BLOOD SPECIMENOrdering Facility: [facility] Address: [address] [place] [address] Performed By: #### 1 9123-9, 46536-9, 277- ####[facility] LABCLIA [id number] [place] [address] [place] AST [Catalytic activity/Vol] 20 U/L Normal 13-35 [facility] Comment on above: Order Comment: Speci men Type: BLOOD SPECIMENOrdering Facility: [facility] Address: [address] [place] [address] Performed By: #### 1 9123-9, 98584-8, 2777-1 ####[facility] LABCLIA [id number] [id number] [address] [place] Bilirubin [Mass/Vol] 0.2 mg/dL Normal 0.2-1.3 [facility] Comment on above: Order Comment: Speci men Type: BLOOD SPECIMENOrdering Facility: [facility] Address: [address] [place] [address] Performed By: #### 1 9123-9, 86152-7, 2776- ####[facility] LABCLIA [id number] [address] [place] [address] [place] Calcium [Mass/Vol] 8.8 mg/dL Normal 8.5-10.2 [facility] Comment on above: Order Comment: Speci men Type: BLOOD SPECIMENOrdering Facility: [facility] Address: [address] [place] [address] Performed By: #### 1 9123-9, 62153-6, 2776- ####[facility] LABCLIA [id number] [place] [address] [place] Chloride [Moles/Vol] 106 mmol/L Normal 98-107 [facility] Comment on above: Order Comment: Speci men Type: BLOOD SPECIMENOrdering Facility: [facility] Address: [address] [place] [address] Performed By: #### 1 9123-9, 37438-4, 2776- ####[facility] LABCLIA [id number] [address], [facility] [place] CO2 [Moles/Vol] 22 mmol/L Normal 22-30 [facility] Comment on above: Order Comment: Speci men Type: BLOOD SPECIMENOrdering Facility: [facility] Address: [address] [place] [address] Performed By: #### 1 9123-9, 69066-1, 2776- ####[facility] LABCLIA [id number] [address] [place] [address] [place] Creatinine [Mass/Vol] 0.68 mg/dL Normal 0.58-0.96 [facility] Comment on above: Order Comment: Dora finch Type: BLOOD SPECIMENOrdering Facility: [facility] Address: [address] [place] [address] Performed By: #### 1 9123-9, 07105-6, 277- ####[facility] LABCLIA [id number] [place] [address] [place] Creatinine and Glomerular filtration rate.predicted panel (S/P/Bld) 112 mL/min/1.73m??? Normal >=60 [facility] Comment on above: Order Comment: Dora finch Type: BLOOD SPECIMENOrdering Facility: [facility] Address: [address] [place] [address] Result Comment: Zeny mated Glomerular Filtration Rate [...] actual GFR. Performed By: #### 1 9123-9, 42913-9, 27712-25 ####[facility] LABCLIA [id number] [place] [address] [place] Glucose [Mass/Vol] 127 mg/dL High 74-99 [facility] Comment on above: Order Comment: Dora finch Type: BLOOD SPECIMENOrdering Facility: [facility] Address: [address] [place] [address] Result Comment: The [place] (ADA) provides guidance for cutoff [...] Standards of Medical Care in Diabetes 2016, [place]. Diabetes Care. 2016.39(Suppl 1). Performed By: #### 1 9123-9, 36624-7, 277- ####[facility] LABCLIA [id number] [address] [address] [place] Potassium [Moles/Vol] 4.0 mmol/L Normal 3.7-5.1 [facility] Comment on above: Order Comment: Speci men Type: BLOOD SPECIMENOrdering Facility: [facility] Address: [address] [place], [place] [address] Performed By: #### 1 9123-9, 01459-7, 27712-25 ####[facility] LABCLIA [id number] [address] [address] [place] Protein [Mass/Vol] 5.9 g/dL Low 6.3-8.0 [facility] Comment on above: Order Comment: Speci men Type: BLOOD SPECIMENOrdering Facility: [facility] Address: [address] [place], [place] [address] Performed By: #### 1 9123-9, 37834-7, 2776-06 ####[facility] LABCLIA [id number] [address] [address] [place] Sodium [Moles/Vol] 139 mmol/L Normal 136-144 [facility] Comment on above: Order Comment: Speci men Type: BLOOD SPECIMENOrdering Facility: [facility] Address: [address] [place] [id number] Performed By: #### 1 9123-9, 51785-1, 2776-06 ####[facility] LABCLIA [id number] [address] [address] [place] Urea nitrogen [Mass/Vol] 10 mg/dL Normal 7-21 [facility] Comment on above: Order Comment: Speci men Type: BLOOD SPECIMENOrdering Facility: [facility] Address: [address] [place], [place] [address] Performed By: #### 1 9123-9, 58859-4, 2777-1 ####[facility] LABCLIA [id number] [address], [facility] [place] Magnesium SerPl-ncon 12-20 Magnesium [Mass/Vol] 1.9 mg/dL Normal 1.7-2.3 [facility] Comment on above: Order Comment: Speci men Type: BLOOD SPECIMENOrdering Facility: [facility] Address: [address] [place] [address] Performed By: #### 1 9123-9, 77541-7, 2777-1 ####[facility] LABCLIA [id number] [place] [address] [place] NUTRITIONon 12-20-2024 NUTRITION Normal [facility] Phosphate SerPl-mCncon 12-20 Phosphate [Mass/Vol] 4.6 mg/dL Normal 2.7-4.8 [facility] Comment on above: Order Comment: Speci men Type: BLOOD SPECIMENOrdering Facility: [facility] Address: [address] [place] [address] Performed By: #### 1 9123-9, 82090-0, 2777-1 ####[facility] LABCLIA [id number] [address], [place] [address] [place] CASE MANAGEMon 12-19-2024 CASE MANAGEM Normal [facility] CBC W Auto Differential pane l (Bld)on 12-19-2024 Basophils (Bld) [#/Vol] 10*3/uL Normal <0.11 [facility] Comment on above: Order Comment: Speci men Type: BLOOD SPECIMENOrdering Facility: [facility] Address: [address] [place] [address] Performed By: #### 5 7021-8 ####[facility] LABCLIA [id number] [address] [id number] [address] [place] Basophils/100 WBC (Bld) 0.3 % Normal [facility] Comment on above: Order Comment: Speci men Type: BLOOD SPECIMENOrdering Facility: [facility] Address: [address] [place] [address] Performed By: #### 5 7021-8 ####[facility] LABCLIA [id number] [place] [address] [place] Differential cell count method Nom (Bld) Auto Normal [facility] Comment on above: Order Comment: Speci men Type: BLOOD SPECIMENOrdering Facility: [facility] Address: [address] [place] [address] Performed By: #### 5 7021-8 ####[facility] LABCLIA [id number] [place] [address] [place] Eosinophils (Bld) [#/Vol] 0.24 10*3/uL Normal <0.46 [facility] Comment on above: Order Comment: Speci men Type: BLOOD SPECIMENOrdering Facility: [facility] Address: [address] [place] [address] Performed By: #### 5 7021-8 ####[facility] LABCLIA [id number] [place] [address] [place] Eosinophils/100 WBC (Bld) 3.0 % Normal [facility] Comment on above: Order Comment: Speci men Type: BLOOD SPECIMENOrdering Facility: [facility] Address: [address] [place] [address] Performed By: #### 5 7021-8 ####[facility] LABCLIA [id number] [place] [address] [place] Erythrocyte distribution width (RBC) [Ratio] 19.9 % High 11.5-15.0 [facility] Comment on above: Order Comment: Speci men Type: BLOOD SPECIMENOrdering Facility: [facility] Address: [address] [place] [address] Performed By: #### 5 7021-8 ####[facility] LABCLIA [id number] [address], [place] [address] [place] Hematocrit (Bld) [Volume fraction] 26.4 % Low 36.0-46.0 [facility] Comment on above: Order Comment: Speci men Type: BLOOD SPECIMENOrdering Facility: [facility] Address: [address] [place] [address] Performed By: #### 5 7021-8 ####[facility] LABIA [id number] [address], [place] [address] [place] Hemoglobin (Bld) [Mass/Vol] 8.5 g/dL Low 11.5-15.5 [facility] Comment on above: Order Comment: Speci men Type: BLOOD SPECIMENOrdering Facility: [facility] Address: [address] [place] [address] Performed By: #### 5 7021-8 ####[facility] LABIA [id number] [address], [place] [address] [place] Immature granulocytes (Bld) [#/Vol] 0.05 10*3/uL Normal <0.10 [facility] Comment on above: Order Comment: Speci men Type: BLOOD SPECIMENOrdering Facility: [facility] Address: [address] [place] [address] Performed By: #### 5 7021-8 ####[facility] LABIA [id number] [place] [address] [place] Immature granulocytes/100 WBC (Bld) 0.6 % Normal [facility] Comment on above: Order Comment: Speci men Type: BLOOD SPECIMENOrdering Facility: [facility] Address: [address] [place] [address] Performed By: #### 5 7021-8 ####[facility] LABIA [id number] [place] [address] [place] Lymphocytes (Bld) [#/Vol] 1.35 10*3/uL Normal 1.00-4.00 [facility] Comment on above: Order Comment: Speci men Type: BLOOD SPECIMENOrdering Facility: [facility] Address: [address] [place] [address] Performed By: #### 5 7021-8 ####[facility] LABCLIA [id number] [place] [address] [place] Lymphocytes/100 WBC (Bld) 17.1 % Normal [facility] Comment on above: Order Comment: Speci men Type: BLOOD SPECIMENOrdering Facility: [facility] Address: [address] [place] [address] Performed By: #### 5 7021-8 ####[facility] LABIA [id number] [place] [address] [place] MCH (RBC) [Entitic mass] 27.3 pg Normal 26.0-34.0 [facility] Comment on above: Order Comment: Speci men Type: BLOOD SPECIMENOrdering Facility: [facility] Address: [address] [place] [address] Performed By: #### 5 7021-8 ####[facility] LABIA [id number] [address] [place] MCHC (RBC) [Mass/Vol] 32.2 g/dL Normal 30.5-36.0 [facility] Comment on above: Order Comment: Speci men Type: BLOOD SPECIMENOrdering Facility: [facility] Address: [address] [place] [address] Performed By: #### 5 7021-8 ####[facility] LABIA [id number] [address] [place] MCV (RBC) [Entitic vol] 84.9 fL Normal 80.0-100.0 [facility] Comment on above: Order Comment: Speci men Type: BLOOD SPECIMENOrdering Facility: [facility] Address: [address] [place] [address] Performed By: #### 5 7021-8 ####[facility] LABCLIA [id number] [address], [place] [address] [place] Monocytes (Bld) [#/Vol] 0.67 10*3/uL Normal <0.87 [facility] Comment on above: Order Comment: Speci men Type: BLOOD SPECIMENOrdering Facility: [facility] Address: [address] [place] [address] Performed By: #### 5 7021-8 ####[facility] LABCLIA [id number] [address], [place] [address] [place] Monocytes/100 WBC (Bld) 8.5 % Normal [facility] Comment on above: Order Comment: Speci men Type: BLOOD SPECIMENOrdering Facility: [facility] Address: [address] [place] [address] Performed By: #### 5 7021-8 ####[facility] LABCLIA [id number] [address], [facility] [place] Neutrophils (Bld) [#/Vol] 5.58 10*3/uL Normal 1.45-7.50 [facility] Comment on above: Order Comment: Speci men Type: BLOOD SPECIMENOrdering Facility: [facility] Address: [address] [place] [address] Performed By: #### 5 7021-8 ####[facility] LABCLIA [id number] [facility] [address], [facility]95 [place] Neutrophils/100 WBC (Bld) 70.5 % Normal [facility] Comment on above: Order Comment: Speci men Type: BLOOD SPECIMENOrdering Facility: [facility] [facility] Address: [address] [place] [address] Performed By: #### 5 7021-8 ####[facility] LABCLIA [id number] [address] [place] [address] [place] Nucleated RBC (Bld) [#/Vol] 10*3/uL Normal <0.01 [facility] Comment on above: Order Comment: Speci men Type: BLOOD SPECIMENOrdering Facility: [facility] Address: [address] [place] [address] Performed By: #### 5 7021-8 ####[facility] LABCLIA [id number] [place] [address] [place] Nucleated RBC/100 WBC (Bld) [Ratio] 0.0 /100 WBC Normal [facility] Comment on above: Order Comment: Speci men Type: BLOOD SPECIMENOrdering Facility: [facility] Address: [address] [place] [address] Performed By: #### 5 7021-8 ####[facility] LABCLIA [id number] [place] [address] [place] Platelet mean volume (Bld) [Entitic vol] 9.7 fL Normal 9.0-12.7 [facility] Comment on above: Order Comment: Speci men Type: BLOOD SPECIMENOrdering Facility: [facility] Address: [address] [place] [address] Performed By: #### 5 7021-8 ####[facility] LABIA [id number] [place] [address] [place] Platelets (Bld) [#/Vol] 362 10*3/uL Normal 150-400 [facility] Comment on above: Order Comment: Speci men Type: BLOOD SPECIMENOrdering Facility: [facility] Address: [address] [place] [address] Performed By: #### 5 7021-8 ####[facility] LABCLIA [id number] [place] [address] [place] RBC (Bld) [#/Vol] 3.11 10*6/uL Low 3.90-5.20 [facility] Comment on above: Order Comment: Speci men Type: BLOOD SPECIMENOrdering Facility: [facility] Address: [address] [place], [place] [address] Performed By: #### 5 7021-8 ####[facility] LABCLIA [id number] [address] [place] [address] [place] WBC (Bld) [#/Vol] 7.91 10*3/uL Normal 3.70-11.00 [facility] Comment on above: Order Comment: Speci men Type: BLOOD SPECIMENOrdering Facility: [facility] Address: [address] [place] [address] Performed By: #### 5 7021-8 ####[facility] LABCLIA [id number] [address] [address] [place] CONSULT PROGon 12-19-2024 CONSULT PROG Normal [facility] CRP SerPl-mCncon 12-19-2024 CRP [Mass/Vol] 5.7 mg/dL High <0.9 [facility] Comment on above: Order Comment: Speci men Type: BLOOD SPECIMENOrdering Facility: [facility] Address: [address] [place] [address] Performed By: #### 2 4323-8, 1987-10, , 2776-06 ####[facility] LABCLIA [id number] [address] [address] [place] Comprehensive metabolic 2000 panelon 12-19-2024 Albumin [Mass/Vol] 2.8 g/dL Low 3.9-4.9 [facility] Comment on above: Order Comment: Speci men Type: BLOOD SPECIMENOrdering Facility: [facility] Address: [address] [place], [place] [id number] Performed By: #### 2 4323-8, 1987-10, , 2776-06 ####[facility] LABCLIA [id number] [address] [place] [address] [place] ALP [Catalytic activity/Vol] 85 U/L Normal 34-123 [facility] Comment on above: Order Comment: Speci men Type: BLOOD SPECIMENOrdering Facility: [facility] Address: [address] [place] [address] Performed By: #### 2 432-8, 1987-10, , 2776-06 ####[facility] LABCLIA [id number] [place] [address] [place] ALT [Catalytic activity/Vol] 12 U/L Normal 7-38 [facility] Comment on above: Order Comment: Speci men Type: BLOOD SPECIMENOrdering Facility: [facility] Address: [address] [place] [address] Performed By: #### 2 4328, 1987-10, , 2776-06 ####[facility] LABCLIA [id number] [place] [address] [place] Anion gap [Moles/Vol] 11 mmol/L Normal 8-15 [facility] Comment on above: Order Comment: Speci men Type: BLOOD SPECIMENOrdering Facility: [facility] Address: [address] [place] [address] Performed By: #### 2 4328, 1987-10, , 2776-06 ####[facility] LABIA [id number] [place] [address] [place] AST [Catalytic activity/Vol] 12 U/L Low 13-35 [facility] Comment on above: Order Comment: Speci men Type: BLOOD SPECIMENOrdering Facility: [facility] Address: [address] [place], [place] [address] Performed By: #### 2 4328, 1987-10, , 2776-06 ####[facility] LABCLIA [id number] [address] [address] [place] Bilirubin [Mass/Vol] 0.3 mg/dL Normal 0.2-1.3 [facility] Comment on above: Order Comment: Speci men Type: BLOOD SPECIMENOrdering Facility: [facility] Address: [address] [place] [address] Performed By: #### 2 432-8, 1987-10, , 2776-06 ####[facility] LABCLIA [id number] [facility] [id number] [address] [place] Calcium [Mass/Vol] 8.6 mg/dL Normal 8.5-10.2 [facility] Comment on above: Order Comment: Speci men Type: BLOOD SPECIMENOrdering Facility: [facility] Address: [address] [place], [place] [address] Performed By: #### 2 432-8, 1987-10, , 2776-06 ####[facility] LABCLIA [id number] [address] [address] [place] Chloride [Moles/Vol] 104 mmol/L Normal 98-107 [facility] Comment on above: Order Comment: Speci men Type: BLOOD SPECIMENOrdering Facility: [facility] Address: [address] [place], [place] [address] Performed By: #### 2 4323-8, 1987-10, , 2776-06 ####[facility] LABCLIA [id number] [facility] [address] [address] [place] CO2 [Moles/Vol] 22 mmol/L Normal 22-30 [facility] Comment on above: Order Comment: Speci men Type: BLOOD SPECIMENOrdering Facility: [facility] Address: [address] [place] [address] Performed By: #### 2 4323-8, 1987-10, , 2776-06 ####[facility] LABCLIA [id number] [facility] [id number], [place] [address] [place] Creatinine [Mass/Vol] 0.64 mg/dL Normal 0.58-0.96 [facility] Comment on above: Order Comment: Speci men Type: BLOOD SPECIMENOrdering Facility: [facility] Address: [address] [phone] Performed By: #### 2 4323-8, 1987-10, , 2776-06 ####[facility] LABIA [id number] [address] [address] [place] Creatinine and Glomerular filtration rate.predicted panel (S/P/Bld) 114 mL/min/1.73m??? Normal >=60 [facility] Comment on above: Order Comment: Dora stef Type: BLOOD SPECIMENOrdering Facility: [facility] Address: [address] [place] [address] Result Comment: Zeny mated Glomerular Filtration Rate [...] actual GFR. Performed By: #### 2 4323-8, 1987-10, , 2776-06 ####[facility] LABCLIA [id number] [address] [address] [place] Glucose [Mass/Vol] 103 mg/dL High 74-99 [facility] Comment on above: Order Comment: Dora finch Type: BLOOD SPECIMENOrdering Facility: [facility] Address: [address] [place] [address] Result Comment: The [place] [employer] (ADA) provides guidance for cutoff [...] Standards of Medical Care in Diabetes 2016, [place]. Diabetes Care. 2016.39(Suppl 1). Performed By: #### 2 432-8, 1987-10, , 2776-06 ####[facility] LABCLIA [id number] [facility] [address] [place] [address] [place] Potassium [Moles/Vol] 3.6 mmol/L Low 3.7-5.1 [facility] Comment on above: Order Comment: Speci men Type: BLOOD SPECIMENOrdering Facility: [facility] Address: [address] [place] [address] Performed By: #### 2 432-8, 1987-10, , 2776-06 ####[facility] LABIA [id number] [address] [place] [address] [place] Protein [Mass/Vol] 5.5 g/dL Low 6.3-8.0 [facility] Comment on above: Order Comment: Speci men Type: BLOOD SPECIMENOrdering Facility: [facility] Address: [address] [place] [address] Performed By: #### 2 4328, 1987-10, , 2776-06 ####[facility] LABIA [id number] [address] [place] [address] [place] Sodium [Moles/Vol] 137 mmol/L Normal 136-144 [facility] Comment on above: Order Comment: Speci men Type: BLOOD SPECIMENOrdering Facility: [facility] Address: [address] [place] [address] Performed By: #### 2 4323-8, 1987-10, , 2776-06 ####[facility] LABCLIA [id number] [facility] [id number], [place] [address] [place] Urea nitrogen [Mass/Vol] 11 mg/dL Normal 7-21 [facility] Comment on above: Order Comment: Speci men Type: BLOOD SPECIMENOrdering Facility: [facility] Address: [address] [place] [address] Performed By: #### 2 4323-8, 1987-10, , 2776-06 ####[facility] LABCLIA [id number] [place] [address] [place] Magnesium SerPl-mCncon 12-19 Magnesium [Mass/Vol] 1.9 mg/dL Normal 1.7-2.3 [facility] Comment on above: Order Comment: Speci men Type: BLOOD SPECIMENOrdering Facility: [facility] Address: [address] [place] [address] Performed By: #### 2 4323-8, 1987-10, , 2776-06 ####[facility] LABCLIA [id number] [place] [address] [place] NURSING PROGon 12-19-2024 NURSING PROG Normal [facility] Phosphate SerPl-mCncon 12-19 Phosphate [Mass/Vol] 4.2 mg/dL Normal 2.7-4.8 [facility] Comment on above: Order Comment: Speci men Type: BLOOD SPECIMENOrdering Facility: [facility] Address: [address] [place] [address] Performed By: #### 2 4323-8, 1987-10, , 2776-06 ####[facility] LABCLIA [id number] [place] [address] [place] CBC W Auto Differential pane l (Bld)on 12-18-2024 Basophils (Bld) [#/Vol] 0.03 10*3/uL Normal <0.11 [facility] Comment on above: Order Comment: Speci men Type: BLOOD SPECIMENOrdering Facility: [facility] Address: [address] [place] [address] Performed By: #### 5 7021-8 ####[facility] LABCLIA [id number] [address], [place] [address] [place] Basophils/100 WBC (Bld) 0.4 % Normal [facility] Comment on above: Order Comment: Speci men Type: BLOOD SPECIMENOrdering Facility: [facility] Address: [address] [place] [address] Performed By: #### 5 7021-8 ####[facility] LABCLIA [id number] [address], [place] [address] [place] Differential cell count method Nom (Bld) Auto Normal [facility] Comment on above: Order Comment: Speci men Type: BLOOD SPECIMENOrdering Facility: [facility] Address: [address] [place] [address] Performed By: #### 5 7021-8 ####[facility] LABCLIA [id number] [address], [place] [address] [place] Eosinophils (Bld) [#/Vol] 0.31 10*3/uL Normal <0.46 [facility] Comment on above: Order Comment: Speci men Type: BLOOD SPECIMENOrdering Facility: [facility] Address: [address] [place] [address] Performed By: #### 5 7021-8 ####[facility] LABCLIA [id number] [address], [place] [address] [place] Eosinophils/100 WBC (Bld) 4.4 % Normal [facility] Comment on above: Order Comment: Speci men Type: BLOOD SPECIMENOrdering Facility: [facility] Address: [address] [place] [address] Performed By: #### 5 7021-8 ####[facility] LABCLIA [id number] [address], [place] [address] [place] Erythrocyte distribution width (RBC) [Ratio] 21.3 % High 11.5-15.0 [facility] Comment on above: Order Comment: Speci men Type: BLOOD SPECIMENOrdering Facility: [facility] Address: [address] [place] [address] Performed By: #### 5 7021-8 ####[facility] LABCLIA [id number] [place] [address] [place] Hematocrit (Bld) [Volume fraction] 21.9 % Low 36.0-46.0 [facility] Comment on above: Order Comment: Speci men Type: BLOOD SPECIMENOrdering Facility: [facility] Address: [address] [place] [address] Performed By: #### 5 7021-8 ####[facility] LABIA [id number] [place] [address] [place] Hemoglobin (Bld) [Mass/Vol] 6.8 g/dL Low 11.5-15.5 [facility] Comment on above: Order Comment: Speci men Type: BLOOD SPECIMENOrdering Facility: [facility] Address: [address] [place] [address] Performed By: #### 5 7021-8 ####[facility] LABIA [id number] [place] [address] [place] Immature granulocytes (Bld) [#/Vol] 0.05 10*3/uL Normal <0.10 [facility] Comment on above: Order Comment: Speci men Type: BLOOD SPECIMENOrdering Facility: [facility] Address: [address] [place] [address] Performed By: #### 5 7021-8 ####[facility] LABCLIA [id number] [place] [address] [place] Immature granulocytes/100 WBC (Bld) 0.7 % Normal [facility] Comment on above: Order Comment: Speci men Type: BLOOD SPECIMENOrdering Facility: [facility] Address: [address] [place] [address] Performed By: #### 5 7021-8 ####[facility] LABCLIA [id number] [place] [address] [place] Lymphocytes (Bld) [#/Vol] 1.19 10*3/uL Normal 1.00-4.00 [facility] Comment on above: Order Comment: Speci men Type: BLOOD SPECIMENOrdering Facility: [facility] Address: [address] [place] [address] Performed By: #### 5 7021-8 ####[facility] LABCLIA [id number] [address] [place] Lymphocytes/100 WBC (Bld) 17.0 % Normal [facility] Comment on above: Order Comment: Speci men Type: BLOOD SPECIMENOrdering Facility: [facility] Address: [address] [place] [address] Performed By: #### 5 7021-8 ####[facility] LABCLIA [id number] [place] [address] [place] MCH (RBC) [Entitic mass] 26.7 pg Normal 26.0-34.0 [facility] Comment on above: Order Comment: Speci men Type: BLOOD SPECIMENOrdering Facility: [facility] Address: [address] [place] [address] Performed By: #### 5 7021-8 ####[facility] LABCLIA [id number] [place] [address] [place] MCHC (RBC) [Mass/Vol] 31.1 g/dL Normal 30.5-36.0 [facility] Comment on above: Order Comment: Speci men Type: BLOOD SPECIMENOrdering Facility: [facility] Address: [address] [place] [address] Performed By: #### 5 7021-8 ####[facility] LABCLIA [id number] [place] [address] [place] MCV (RBC) [Entitic vol] 85.9 fL Normal 80.0-100.0 [facility] Comment on above: Order Comment: Speci men Type: BLOOD SPECIMENOrdering Facility: [facility] Address: [address] [place] [address] Performed By: #### 5 7021-8 ####[facility] LABCLIA [id number] [place] [address] [place] Monocytes (Bld) [#/Vol] 0.48 10*3/uL Normal <0.87 [facility] Comment on above: Order Comment: Speci men Type: BLOOD SPECIMENOrdering Facility: [facility] Address: [address] [place] [address] Performed By: #### 5 7021-8 ####[facility] LABCLIA [id number] [place] [address] [place] Monocytes/100 WBC (Bld) 6.8 % Normal [facility] Comment on above: Order Comment: Speci men Type: BLOOD SPECIMENOrdering Facility: [facility] Address: [address] [place] [address] Performed By: #### 5 7021-8 ####[facility] LABCLIA [id number] [place] [address] [place] Neutrophils (Bld) [#/Vol] 4.96 10*3/uL Normal 1.45-7.50 [facility] Comment on above: Order Comment: Speci men Type: BLOOD SPECIMENOrdering Facility: [facility] Address: [address] [place] [address] Performed By: #### 5 7021-8 ####[facility] LABCLIA [id number] [place] [id number] [place] Neutrophils/100 WBC (Bld) 70.7 % Normal [facility] Comment on above: Order Comment: Speci men Type: BLOOD SPECIMENOrdering Facility: [facility] Address: [address] [place] [address] Performed By: #### 5 7021-8 ####[facility] LABCLIA [id number] [place] [address] [place] Nucleated RBC (Bld) [#/Vol] 10*3/uL Normal <0.01 [facility] Comment on above: Order Comment: Speci men Type: BLOOD SPECIMENOrdering Facility: [facility] Address: [address] [place] [address] Performed By: #### 5 7021-8 ####[facility] LABIA [id number] [place] [address] [place] Nucleated RBC/100 WBC (Bld) [Ratio] 0.0 /100 WBC Normal [facility] Comment on above: Order Comment: Speci men Type: BLOOD SPECIMENOrdering Facility: [facility] Address: [address] [place] [address] Performed By: #### 5 7021-8 ####[facility] LABIA [id number] [place] [address] [place] Platelet mean volume (Bld) [Entitic vol] 9.7 fL Normal 9.0-12.7 [facility] Comment on above: Order Comment: Speci men Type: BLOOD SPECIMENOrdering Facility: [facility] Address: [address] [place] [address] Performed By: #### 5 7021-8 ####[facility] LABIA [id number] [place] [address] [place] Platelets (Bld) [#/Vol] 265 10*3/uL Normal 150-400 [facility] Comment on above: Order Comment: Speci men Type: BLOOD SPECIMENOrdering Facility: [facility] Address: [address] [place] [address] Performed By: #### 5 7021-8 ####[facility] LABCLIA [id number] [address], [facility] [place] RBC (Bld) [#/Vol] 2.55 10*6/uL Low 3.90-5.20 [facility] Comment on above: Order Comment: Speci men Type: BLOOD SPECIMENOrdering Facility: [facility] Address: [address] [place] [address] Performed By: #### 5 7021-8 ####[facility] LABCLIA [id number] [place] [address] [place] WBC (Bld) [#/Vol] 7.02 10*3/uL Normal 3.70-11.00 [facility] Comment on above: Order Comment: Speci men Type: BLOOD SPECIMENOrdering Facility: [facility] Address: [address] [place] [address] Performed By: #### 5 7021-8 ####[facility] LABCLIA [id number] [place] [address] [place] CBC panel Auto (Bld)on 12-18 Erythrocyte distribution width (RBC) [Ratio] 20.3 % High 11.5-15.0 [facility] Comment on above: Order Comment: Speci men Type: BLOOD SPECIMENOrdering Facility: [facility] Address: [address] [place] [address] Performed By: #### 5 8410-2 ####[facility] LABCLIA [id number] [place] [address] [place] Hematocrit (Bld) [Volume fraction] 26.1 % Low 36.0-46.0 [facility] Comment on above: Order Comment: Speci men Type: BLOOD SPECIMENOrdering Facility: [facility] Address: [address] [place] [address] Performed By: #### 5 8410-2 ####[facility] LABCLIA [id number] [place] [address] [place] Hemoglobin (Bld) [Mass/Vol] 7.9 g/dL Low 11.5-15.5 [facility] Comment on above: Order Comment: Speci men Type: BLOOD SPECIMENOrdering Facility: [facility] Address: [address] [place] [address] Performed By: #### 5 8410-2 ####[facility] LABIA [id number] [place] [address] [place] [facility] MCH (RBC) [Entitic mass] 27.0 pg Normal 26.0-34.0 [facility] Comment on above: Order Comment: Speci men Type: BLOOD SPECIMENOrdering Facility: [facility] Address: [address] [place] [address] Performed By: #### 5 8410-2 ####[facility] LABIA [id number] [place] [address] [place] MCHC (RBC) [Mass/Vol] 30.3 g/dL Low 30.5-36.0 [facility] Comment on above: Order Comment: Speci men Type: BLOOD SPECIMENOrdering Facility: [facility] Address: [address] [place] [address] Performed By: #### 5 8410-2 ####[facility] LABIA [id number] [place] [address] [place] MCV (RBC) [Entitic vol] 89.1 fL Normal 80.0-100.0 [facility] Comment on above: Order Comment: Speci men Type: BLOOD SPECIMENOrdering Facility: [facility] Address: [address] [place] [address] Performed By: #### 5 8410-2 ####[facility] LABCLIA [id number] [place] [address] [place] Nucleated RBC (Bld) [#/Vol] 10*3/uL Normal <0.01 [facility] Comment on above: Order Comment: Speci men Type: BLOOD SPECIMENOrdering Facility: [facility] Address: [address] [place] [address] Performed By: #### 5 8410-2 ####[facility] LABCLIA [id number] [address] [place] [address] [place] Platelet mean volume (Bld) [Entitic vol] 9.8 fL Normal 9.0-12.7 [facility] Comment on above: Order Comment: Speci men Type: BLOOD SPECIMENOrdering Facility: [facility] Address: [address] [place] [address] Performed By: #### 5 8410-2 ####[facility] LABIA [id number] [place] [address] [place] Platelets (Bld) [#/Vol] 287 10*3/uL Normal 150-400 [facility] Comment on above: Order Comment: Speci men Type: BLOOD SPECIMENOrdering Facility: [facility] Address: [address] [place] [address] Performed By: #### 5 8410-2 ####[facility] LABIA [id number] [address], [place] [address] [place] RBC (Bld) [#/Vol] 2.93 10*6/uL Low 3.90-5.20 [facility] Comment on above: Order Comment: Speci men Type: BLOOD SPECIMENOrdering Facility: [facility] Address: [address] [place] [address] Performed By: #### 5 8410-2 ####[facility] [id number] [place] [address] [place] WBC (Bld) [#/Vol] 8.64 10*3/uL Normal 3.70-11.00 [facility] Comment on above: Order Comment: Speci men Type: BLOOD SPECIMENOrdering Facility: [facility] Address: [address] [place] [address] Performed By: #### 5 8410-2 ####[facility] [id number] [address], [facility] [place] Erythrocyte distribution width (RBC) [Ratio] 21.2 % High 11.5-15.0 [facility] Comment on above: Order Comment: Speci men Type: BLOOD SPECIMENOrdering Facility: [facility] [facility] Address: [address] [place] [address] Performed By: #### 5 8410-2 ####[facility] LABIA [id number] [place] [address] [place] Hematocrit (Bld) [Volume fraction] 22.2 % Low 36.0-46.0 [facility] Comment on above: Order Comment: Speci men Type: BLOOD SPECIMENOrdering Facility: [facility] Address: [address] [place] [address] Performed By: #### 5 8410-2 ####[facility] LABIA [id number] [place] [address] [place] Hemoglobin (Bld) [Mass/Vol] 6.9 g/dL Low 11.5-15.5 [facility] Comment on above: Order Comment: Speci men Type: BLOOD SPECIMENOrdering Facility: [facility] Address: [address] [place] [address] Performed By: #### 5 8410-2 ####[facility] LABIA [id number] [place] [address] [place] MCH (RBC) [Entitic mass] 27.0 pg Normal 26.0-34.0 [facility] Comment on above: Order Comment: Speci men Type: BLOOD SPECIMENOrdering Facility: [facility] Address: [address] [place] [address] Performed By: #### 5 8410-2 ####[facility] LABIA [id number] [place] [address] [place] MCHC (RBC) [Mass/Vol] 31.1 g/dL Normal 30.5-36.0 [facility] Comment on above: Order Comment: Speci men Type: BLOOD SPECIMENOrdering Facility: [facility] Address: [address] [place] [address] Performed By: #### 5 8410-2 ####[facility] LABCLIA [id number] [place] [address] [place] MCV (RBC) [Entitic vol] 86.7 fL Normal 80.0-100.0 [facility] Comment on above: Order Comment: Speci men Type: BLOOD SPECIMENOrdering Facility: [facility] Address: [address] [place] [address] Performed By: #### 5 8410-2 ####[facility] LABIA [id number] [place] [address] [place] Nucleated RBC (Bld) [#/Vol] 10*3/uL Normal <0.01 [facility] Comment on above: Order Comment: Speci men Type: BLOOD SPECIMENOrdering Facility: [facility] Address: [address] [place] [address] Performed By: #### 5 8410-2 ####[facility] LABIA [id number] [place] [address] [place] Platelet mean volume (Bld) [Entitic vol] 9.5 fL Normal 9.0-12.7 [facility] Comment on above: Order Comment: Speci men Type: BLOOD SPECIMENOrdering Facility: [facility] Address: [address] [place] [address] Performed By: #### 5 8410-2 ####[facility] LABIA [id number] [place] [address] [place] Platelets (Bld) [#/Vol] 284 10*3/uL Normal 150-400 [facility] Comment on above: Order Comment: Speci men Type: BLOOD SPECIMENOrdering Facility: [facility] Address: [address] [place] [address] Performed By: #### 5 8410-2 ####[facility] LABCLIA [id number] [place] [address] [place] RBC (Bld) [#/Vol] 2.56 10*6/uL Low 3.90-5.20 [facility] Comment on above: Order Comment: Speci men Type: BLOOD SPECIMENOrdering Facility: [facility] Address: [address] [place] [address] Performed By: #### 5 8410-2 ####[facility] LABCLIA [id number] [place] [address] [place] WBC (Bld) [#/Vol] 7.45 10*3/uL Normal 3.70-11.00 [facility] Comment on above: Order Comment: Speci men Type: BLOOD SPECIMENOrdering Facility: [facility] Address: [address] [place] [address] Performed By: #### 5 8410-2 ####[facility] LABIA [id number] [place] [address] [place] Comprehensive metabolic 2000 panelon 12-18-2024 Albumin [Mass/Vol] 2.3 g/dL Low 3.9-4.9 [facility] Comment on above: Order Comment: Speci men Type: BLOOD SPECIMENOrdering Facility: [facility] Address: [address] [place] [address] Performed By: #### 2 4323-8, 17323-6, 2777-1, 257-8 ####[facility] LABIA [id number] [place] [address] [place] ALP [Catalytic activity/Vol] 71 U/L Normal 34-123 [facility] Comment on above: Order Comment: Speci men Type: BLOOD SPECIMENOrdering Facility: [facility] Address: [address] [place] [address] Performed By: #### 2 4323-8, 65649-3, 2777-1, 2571-8 ####[facility] LABCLIA [id number] [place] [address] [place] ALT [Catalytic activity/Vol] 9 U/L Normal 7-38 [facility] Comment on above: Order Comment: Speci men Type: BLOOD SPECIMENOrdering Facility: [facility] Address: [address] [place] [address] Performed By: #### 2 4323-8, 81535-2, 277-1, 2570-8 ####[facility] LABCLIA [id number] [place] [address] [place] Anion gap [Moles/Vol] 10 mmol/L Normal 8-15 [facility] Comment on above: Order Comment: Speci men Type: BLOOD SPECIMENOrdering Facility: [facility] Address: [address] [place] [address] Performed By: #### 2 4323-8, 92860-1, 2776-1, 2570-8 ####[facility] LABCLIA [id number] [place] [address] [place] AST [Catalytic activity/Vol] 9 U/L Low 13-35 [facility] Comment on above: Order Comment: Speci men Type: BLOOD SPECIMENOrdering Facility: [facility] Address: [address] [place] [address] Performed By: #### 2 4323-8, 71726-9, 277-1, 257-8 ####[facility] LABIA [id number] [place] [address] [place] Bilirubin [Mass/Vol] 0.2 mg/dL Normal 0.2-1.3 [facility] Comment on above: Order Comment: Speci men Type: BLOOD SPECIMENOrdering Facility: [facility] Address: [address] [place] [address] Performed By: #### 2 4323-8, 08622-4, 277-1, 257-8 ####[facility] LABCLIA [id number] [place] [address] [place] Calcium [Mass/Vol] 8.0 mg/dL Low 8.5-10.2 [facility] Comment on above: Order Comment: Speci men Type: BLOOD SPECIMENOrdering Facility: [facility] Address: [address] [place] [address] Performed By: #### 2 4323-8, 50459-5, 277-1, 2570-8 ####[facility] LABCLIA [id number] [place] [address] [place] Chloride [Moles/Vol] 106 mmol/L Normal 98-107 [facility] Comment on above: Order Comment: Speci men Type: BLOOD SPECIMENOrdering Facility: [facility] Address: [address] [place] [address] Performed By: #### 2 4323-8, 58244-4, 277-1, 8 ####[facility] LABCLIA [id number] [place] [address] [place] CO2 [Moles/Vol] 22 mmol/L Normal 22-30 [facility] Comment on above: Order Comment: Speci men Type: BLOOD SPECIMENOrdering Facility: [facility] Address: [address] [place] [address] Performed By: #### 2 4323-8, 29760-9, 277-1, 257-8 ####[facility] LABCLIA [id number] [place] [address] [place] Creatinine [Mass/Vol] 0.53 mg/dL Low 0.58-0.96 [facility] Comment on above: Order Comment: Speci men Type: BLOOD SPECIMENOrdering Facility: [facility] Address: [address] [place] [address] Performed By: #### 2 4323-8, 21208-1, 277-1, 257-8 ####[facility] LABCLIA [id number] [place] AV[facility]ED[id number] Creatinine and Glomerular filtration rate.predicted panel (S/P/Bld) 119 mL/min/1.73m??? Normal >=60 [facility] Comment on above: Order Comment: Dora finch Type: BLOOD SPECIMENOrdering Facility: [facility] Address: [address] [place] [address] Result Comment: Zeny mated Glomerular Filtration Rate [...] actual GFR. Performed By: #### 2 4323-8, 71138-1, 2776-, 2571-01 ####[facility] LABCLIA [id number] [address] [place] Glucose [Mass/Vol] 115 mg/dL High 74-99 [facility] Comment on above: Order Comment: Dora finch Type: BLOOD SPECIMENOrdering Facility: [facility] Address: [address] [place] [address] Result Comment: The [place] Diabetes Association (ADA) provides guidance for cutoff [...] Standards of Medical Care in Diabetes 2016, [employer]. Diabetes Care. 2016.39(Suppl 1). Performed By: #### 2 4323-8, 19915-9, 2776-, 2570-8 ####[facility] LABCLIA [id number] [place] [id number] [place] Potassium [Moles/Vol] 3.3 mmol/L Low 3.7-5.1 [facility] Comment on above: Order Comment: Speci men Type: BLOOD SPECIMENOrdering Facility: [facility] Address: [address] [place] [address] Performed By: #### 2 4323-8, 65294-7, 2776-1, 8 ####[facility] LABCLIA [id number] [facility] [place] [id number] [place] Protein [Mass/Vol] 5.1 g/dL Low 6.3-8.0 [facility] Comment on above: Order Comment: Speci men Type: BLOOD SPECIMENOrdering Facility: [facility] Address: [address] [place] [address] Performed By: #### 2 4323-8, 06789-1, 2776-06, 8 ####[facility] LABCLIA [id number] [place] [address] [place] Sodium [Moles/Vol] 138 mmol/L Normal 136-144 [facility] Comment on above: Order Comment: Speci men Type: BLOOD SPECIMENOrdering Facility: [facility] Address: [address] [place] [address] Performed By: #### 2 4323-8, 45252-2, 2776-06, 8 ####[facility] LABCLIA [id number] [place] [address] [place] Urea nitrogen [Mass/Vol] 8 mg/dL Normal 7-21 [facility] Comment on above: Order Comment: Speci men Type: BLOOD SPECIMENOrdering Facility: [facility] Address: [address] [place] [address] Performed By: #### 2 4323-8, 41187-3, 2776-1, 2570-8 ####[facility] LABCLIA [id number] [facility] [id number] [place] [address] [place] Magnesium SerPl-mCncon 12-18 Magnesium [Mass/Vol] 1.8 mg/dL Normal 1.7-2.3 [facility] Comment on above: Order Comment: Speci men Type: BLOOD SPECIMENOrdering Facility: [facility] Address: [address] [place] [address] Performed By: #### 2 4323-8, 60139-6, 2777-1, 257-8 ####[facility] LABCLIA [id number] [place] [address] [place] Phosphate SerPl-mCncon 12-18 Phosphate [Mass/Vol] 3.8 mg/dL Normal 2.7-4.8 [facility] Comment on above: Order Comment: Speci men Type: BLOOD SPECIMENOrdering Facility: [facility] Address: [address] [place] [address] Performed By: #### 2 4323-8, 03857-9, 2777-1, 257-8 ####[facility] LABCLIA [id number] [place] [address] [place] TYPE + SCREENon 12-18-2024 ABO O Normal [facility] Comment on above: Order Comment: Speci men Type: BLOOD SPECIMENOrdering Facility: [facility] Address: [address] [place] [address] Performed By: #### T SCR ####[facility] BLOOD BANKCLIA [id number] [place] [address] [place] Rh Nom (Bld) Positive Normal [facility] Comment on above: Order Comment: Speci men Type: BLOOD SPECIMENOrdering Facility: [facility] Address: [address] [place] [address] Performed By: #### T SCR ####[facility] BLOOD BANKCLIA [id number] [place] [address] [place] TYPE AND SCREEN EXPIRATION 12/21/2024 23:59 Normal [facility] Comment on above: Order Comment: Speci men Type: BLOOD SPECIMENOrdering Facility: [facility] Address: [address] [place] [address] Performed By: #### T SCR ####[facility] BLOOD [facility] [id number] [place] [address] [place] Trigl SerPl-mCncon Triglyceride [Mass/Vol] 81 mg/dL Normal <150 [facility] Comment on above: Order Comment: Speci men Type: BLOOD SPECIMENOrdering Facility: [facility] Address: [address] [place] [address] Result Comment: <150 mg/dL, Normal 150-199 mg/dL, Borderline high 200-499 mg/dL, High>499 mg/dL, Very highReference:1. National Cholesterol Education Program ATP III Guideline At-A-Glance Quick Desk Reference: National Heart, Lung, and Blood [place]. National Institutes of Health. 2001: NIH Publication No. 01-3305. Performed By: #### 2 4323-8, 86866-3, 2777-1, 2571-8 ####[facility]ITAL[facility] [id number] [place] [id number] [place] Triglyceride [Mass/Vol]on FASTING TIME 12 hrs Normal [facility] Comment on above: Order Comment: Speci men Type: BLOOD SPECIMENOrdering Facility: [facility] Address: [address] [place] [address] Performed By: #### 2 4323-8, 26395-6, 2777-1, 2571-8 ####[facility]ITAL[facility] [id number] [place] [id number] [place] Basic metabolic 2000 panelon 12-17-2024 Anion gap [Moles/Vol] 9 mmol/L Normal 8-15 [facility] Comment on above: Order Comment: Speci men Type: BLOOD SPECIMENOrdering Facility: [facility] Address: [address] [place] [address] Performed By: #### 2 4321-2 ####[facility] LABCLIA [id number] [place] [address] [place] Calcium [Mass/Vol] 8.0 mg/dL Low 8.5-10.2 [facility] Comment on above: Order Comment: Speci men Type: BLOOD SPECIMENOrdering Facility: [facility] Address: [address] [place] [address] Performed By: #### 2 4321-2 ####[facility] LABCLIA [id number] [facility] [place] [place] [address] [place] Chloride [Moles/Vol] 104 mmol/L Normal 98-107 [facility] Comment on above: Order Comment: Speci men Type: BLOOD SPECIMENOrdering Facility: [facility] Address: [address] [place] [address] Performed By: #### 2 4321-2 ####[facility] LABCLIA [id number] [place] [address] [place] CO2 [Moles/Vol] 23 mmol/L Normal 22-30 [facility] Comment on above: Order Comment: Speci men Type: BLOOD SPECIMENOrdering Facility: [facility] Address: [address] [place] [address] Performed By: #### 2 4321-2 ####[facility] LABCLIA [id number] [place] [id number] [place] Creatinine [Mass/Vol] 0.54 mg/dL Low 0.58-0.96 [facility] Comment on above: Order Comment: Speci men Type: BLOOD SPECIMENOrdering Facility: [facility] Address: [address] [place] [address] Performed By: #### 2 4321-2 ####[facility] LABCLIA [id number] [place] [id number] [place] Creatinine and Glomerular filtration rate.predicted panel (S/P/Bld) 119 mL/min/1.73m??? Normal >=60 [facility] Comment on above: Order Comment: Dora finch Type: BLOOD SPECIMENOrdering Facility: [facility] Address: [address] [place] [address] Result Comment: Zeny mated Glomerular Filtration Rate [...] actual GFR. Performed By: #### 2 4321-2 ####[facility] [id number] [place] [address] [place] Glucose [Mass/Vol] 152 mg/dL High 74-99 [facility] Comment on above: Order Comment: Dora finch Type: BLOOD SPECIMENOrdering Facility: [facility] Address: [address] [place] [address] Result Comment: The [place] Diabetes Association (ADA) provides guidance for cutoff [...] Standards of Medical Care in Diabetes 2016, [employer]. Diabetes Care. 2016.39(Suppl 1). Performed By: #### 2 4321-2 ####[facility] [id number] [place] [id number] [place] Potassium [Moles/Vol] 3.7 mmol/L Normal 3.7-5.1 [facility] Comment on above: Order Comment: Speci men Type: BLOOD SPECIMENOrdering Facility: [facility] Address: [address] [place] [address] Performed By: #### 2 4321-2 ####[facility] LABCLIA [id number] [address] [address] [place] Sodium [Moles/Vol] 136 mmol/L Normal 136-144 [facility] Comment on above: Order Comment: Speci men Type: BLOOD SPECIMENOrdering Facility: [facility] Address: [address] [place] [address] Performed By: #### 2 4321-2 ####[facility] LABCLIA [id number] [place] [address] [place] Urea nitrogen [Mass/Vol] 12 mg/dL Normal 7-21 [facility] Comment on above: Order Comment: Speci men Type: BLOOD SPECIMENOrdering Facility: [facility] Address: [address] [place] [address] Performed By: #### 2 4321-2 ####[facility] LABIA [id number] [place] [id number] [place] CASE MANAGEMon 12-17-2024 CASE MANAGEM Normal [facility] CBC W Auto Differential pane l (Bld)on 12-17-2024 Basophils (Bld) [#/Vol] 10*3/uL Normal <0.11 [facility] Comment on above: Order Comment: Speci men Type: BLOOD SPECIMENOrdering Facility: [facility] Address: [address] [place] [address] Performed By: #### 5 7021-8 ####[facility] LABCLIA [id number] [place] [id number] [place] Basophils/100 WBC (Bld) 0.2 % Normal [facility] Comment on above: Order Comment: Speci men Type: BLOOD SPECIMENOrdering Facility: [facility] Address: [address] [place] [address] Performed By: #### 5 7021-8 ####[facility] LABCLIA [id number] [address], [place] [address] [place] Differential cell count method Nom (Bld) Auto Normal [facility] Comment on above: Order Comment: Speci men Type: BLOOD SPECIMENOrdering Facility: [facility] Address: [address] [place] [address] Performed By: #### 5 7021-8 ####[facility] LABCLIA [id number] [address], [place] [address] [place] Eosinophils (Bld) [#/Vol] 0.29 10*3/uL Normal <0.46 [facility] Comment on above: Order Comment: Speci men Type: BLOOD SPECIMENOrdering Facility: [facility] Address: [address] [place] [address] Performed By: #### 5 7021-8 ####[facility] LABCLIA [id number] [place] [address] [place] Eosinophils/100 WBC (Bld) 3.3 % Normal [facility] Comment on above: Order Comment: Speci men Type: BLOOD SPECIMENOrdering Facility: [facility] Address: [address] [place] [address] Performed By: #### 5 7021-8 ####[facility] LABCLIA [id number] [place] [address] [place] Erythrocyte distribution width (RBC) [Ratio] 21.2 % High 11.5-15.0 [facility] Comment on above: Order Comment: Speci men Type: BLOOD SPECIMENOrdering Facility: [facility] Address: [address] [place] [address] Performed By: #### 5 7021-8 ####[facility] LABCLIA [id number] [place] [id number] [place] Hematocrit (Bld) [Volume fraction] 24.6 % Low 36.0-46.0 [facility] Comment on above: Order Comment: Speci men Type: BLOOD SPECIMENOrdering Facility: [facility] Address: [address] [place] [address] Performed By: #### 5 7021-8 ####[facility] LABCLIA [id number] [place] [address] [place] Hemoglobin (Bld) [Mass/Vol] 7.6 g/dL Low 11.5-15.5 [facility] Comment on above: Order Comment: Speci men Type: BLOOD SPECIMENOrdering Facility: [facility] Address: [address] [place] [address] Performed By: #### 5 7021-8 ####[facility] LABCLIA [id number] [place] [address] [place] Immature granulocytes (Bld) [#/Vol] 0.04 10*3/uL Normal <0.10 [facility] Comment on above: Order Comment: Speci men Type: BLOOD SPECIMENOrdering Facility: [facility] Address: [address] [place] [address] Performed By: #### 5 7021-8 ####[facility] LABIA [id number] [place] [address] [place] Immature granulocytes/100 WBC (Bld) 0.5 % Normal [facility] Comment on above: Order Comment: Speci men Type: BLOOD SPECIMENOrdering Facility: [facility] Address: [address] [place] [address] Performed By: #### 5 7021-8 ####[facility] LABCLIA [id number] [place] [address] [place] Lymphocytes (Bld) [#/Vol] 1.04 10*3/uL Normal 1.00-4.00 [facility] Comment on above: Order Comment: Speci men Type: BLOOD SPECIMENOrdering Facility: [facility] Address: [address] [place] [address] Performed By: #### 5 7021-8 ####[facility] LABIA [id number] [place] [address] [place] Lymphocytes/100 WBC (Bld) 11.7 % Normal [facility] Comment on above: Order Comment: Speci men Type: BLOOD SPECIMENOrdering Facility: [facility] Address: [address] [place] [address] Performed By: #### 5 7021-8 ####[facility] LABIA [id number] [place] [address] [place] MCH (RBC) [Entitic mass] 26.5 pg Normal 26.0-34.0 [facility] Comment on above: Order Comment: Speci men Type: BLOOD SPECIMENOrdering Facility: [facility] Address: [address] [place] [address] Performed By: #### 5 7021-8 ####[facility] LABIA [id number] [place] [address] [place] MCHC (RBC) [Mass/Vol] 30.9 g/dL Normal 30.5-36.0 [facility] Comment on above: Order Comment: Speci men Type: BLOOD SPECIMENOrdering Facility: [facility] Address: [address] [place] [address] Performed By: #### 5 7021-8 ####[facility] LABIA [id number] [place] [address] [place] MCV (RBC) [Entitic vol] 85.7 fL Normal 80.0-100.0 [facility] Comment on above: Order Comment: Speci men Type: BLOOD SPECIMENOrdering Facility: [facility] Address: [address] [place] [address] Performed By: #### 5 7021-8 ####[facility] LABIA [id number] [place] [address] [place] Monocytes (Bld) [#/Vol] 0.61 10*3/uL Normal <0.87 [facility] Comment on above: Order Comment: Speci men Type: BLOOD SPECIMENOrdering Facility: [facility] Address: [address] [place] [address] Performed By: #### 5 7021-8 ####[facility] LABCLIA [id number] [facility] [place] [address] [place] Monocytes/100 WBC (Bld) 6.9 % Normal [facility] Comment on above: Order Comment: Speci men Type: BLOOD SPECIMENOrdering Facility: [facility] Address: [address] [place] [address] Performed By: #### 5 7021-8 ####[facility] LABCLIA [id number] [facility] [address] [place] Neutrophils (Bld) [#/Vol] 6.88 10*3/uL Normal 1.45-7.50 [facility] Comment on above: Order Comment: Speci men Type: BLOOD SPECIMENOrdering Facility: [facility] Address: [address] [place] [address] Performed By: #### 5 7021-8 ####[facility] LABCLIA [id number] [place] [address] [place] Neutrophils/100 WBC (Bld) 77.4 % Normal [facility] Comment on above: Order Comment: Speci men Type: BLOOD SPECIMENOrdering Facility: [facility] Address: [address] [place] [address] Performed By: #### 5 7021-8 ####[facility] LABCLIA [id number] [place] [address] [place] Nucleated RBC (Bld) [#/Vol] 10*3/uL Normal <0.01 [facility] Comment on above: Order Comment: Speci men Type: BLOOD SPECIMENOrdering Facility: [facility] Address: [address] [place] [address] Performed By: #### 5 7021-8 ####[facility] LABCLIA [id number] [address] [place] [address] [place] Nucleated RBC/100 WBC (Bld) [Ratio] 0.0 /100 WBC Normal [facility] Comment on above: Order Comment: Speci men Type: BLOOD SPECIMENOrdering Facility: [facility] Address: [address] [place] [address] Performed By: #### 5 7021-8 ####[facility] LABCLIA [id number] [address] [place] [address] [place] Platelet mean volume (Bld) [Entitic vol] 9.5 fL Normal 9.0-12.7 [facility] Comment on above: Order Comment: Speci men Type: BLOOD SPECIMENOrdering Facility: [facility] Address: [address] [place] [address] Performed By: #### 5 7021-8 ####[facility] LABIA [id number] [address], [place] [address] [place] Platelets (Bld) [#/Vol] 245 10*3/uL Normal 150-400 [facility] Comment on above: Order Comment: Speci men Type: BLOOD SPECIMENOrdering Facility: [facility] Address: [address] [place] [address] Performed By: #### 5 7021-8 ####[facility] LABCLIA [id number] [address] [place] [address] [place] RBC (Bld) [#/Vol] 2.87 10*6/uL Low 3.90-5.20 [facility] Comment on above: Order Comment: Speci men Type: BLOOD SPECIMENOrdering Facility: [facility] Address: [address] [place] [address] Performed By: #### 5 7021-8 ####[facility] LABIA [id number] [address], [facility] [place] WBC (Bld) [#/Vol] 8.88 10*3/uL Normal 3.70-11.00 [facility] Comment on above: Order Comment: Speci men Type: BLOOD SPECIMENOrdering Facility: [facility] Address: [address] [place], [place] [address] Performed By: #### 5 7021-8 ####[facility] LABCLIA [id number] [place] [id number] [place] CONSULT PROGon 12-17-2024 CONSULT PROG Normal [facility] CONSULT PROG Normal [facility] CRP SerPl-mCncon 12-17-2024 CRP [Mass/Vol] 10.3 mg/dL High <0.9 [facility] Comment on above: Order Comment: Speci men Type: BLOOD SPECIMENOrdering Facility: [facility] Address: [address] [place] [address] Performed By: #### 1 988-5 ####[facility] LABCLIA [id number] [place] [address] [place] Comprehensive metabolic 2000 panelon 12-17-2024 Albumin [Mass/Vol] 2.6 g/dL Low 3.9-4.9 [facility] Comment on above: Order Comment: Speci men Type: BLOOD SPECIMENOrdering Facility: [facility] Address: [address] [place] [address] Performed By: #### 2 4323-8, 03857-6, 2777-1 ####[facility] LABCLIA [id number] [place] [address] [place] ALP [Catalytic activity/Vol] 80 U/L Normal 34-123 [facility] Comment on above: Order Comment: Speci men Type: BLOOD SPECIMENOrdering Facility: [facility] Address: [address] [place] [address] Performed By: #### 2 4323-8, , 2777-1 ####[facility] LABCLIA [id number] [address] [place] [address] [place] ALT [Catalytic activity/Vol] 14 U/L Normal 7-38 [facility] Comment on above: Order Comment: Speci men Type: BLOOD SPECIMENOrdering Facility: [facility] Address: [address] [place] [address] Performed By: #### 2 4323-8, 03576-2, 2776-06 ####[facility] LABCLIA [id number] [address] [place] [address] [place] Anion gap [Moles/Vol] 12 mmol/L Normal 8-15 [facility] Comment on above: Order Comment: Speci men Type: BLOOD SPECIMENOrdering Facility: [facility] Address: [address] [place] [address] Performed By: #### 2 4323-8, , 2776-06 ####[facility] LABCLIA [id number] [place] [address] [place] AST [Catalytic activity/Vol] 7 U/L Low 13-35 [facility] Comment on above: Order Comment: Speci men Type: BLOOD SPECIMENOrdering Facility: [facility] Address: [address] [place] [address] Performed By: #### 2 4323-8, , 2776-06 ####[facility] LABCLIA [id number] [address], [facility]95 [place] Bilirubin [Mass/Vol] 0.3 mg/dL Normal 0.2-1.3 [facility] Comment on above: Order Comment: Speci men Type: BLOOD SPECIMENOrdering Facility: [facility] Address: [address] [place] [address] Performed By: #### 2 4323-8, , 2776-06 ####[facility] LABCLIA [id number] [address] [place] [address] [place] Calcium [Mass/Vol] 8.5 mg/dL Normal 8.5-10.2 [facility] Comment on above: Order Comment: Speci men Type: BLOOD SPECIMENOrdering Facility: [facility] Address: [address] [place], [place] [address] Performed By: #### 2 4323-8, , 2776-06 ####[facility] LABCLIA [id number] [facility] [address] [place] [address] [place] Chloride [Moles/Vol] 102 mmol/L Normal 98-107 [facility] Comment on above: Order Comment: Speci men Type: BLOOD SPECIMENOrdering Facility: [facility] Address: [address] [place] [address] Performed By: #### 2 4323-8, , 2776-06 ####[facility] LABCLIA [id number] [facility] [place] [id number] [place] CO2 [Moles/Vol] 23 mmol/L Normal 22-30 [facility] Comment on above: Order Comment: Speci men Type: BLOOD SPECIMENOrdering Facility: [facility] Address: [address] [place] [address] Performed By: #### 2 4323-8, , 2776-06 ####[facility] LABCLIA [id number] [facility] [address], [facility] [place] Creatinine [Mass/Vol] 0.58 mg/dL Normal 0.58-0.96 [facility] Comment on above: Order Comment: Speci men Type: BLOOD SPECIMENOrdering Facility: [facility] Address: [address] [place], [place] [address] Performed By: #### 2 4323-8, , 2776-06 ####[facility] LABCLIA [id number] [facility] [address] [place] [address] [place] Creatinine and Glomerular filtration rate.predicted panel (S/P/Bld) 117 mL/min/1.73m??? Normal >=60 [facility] Comment on above: Order Comment: Dora finch Type: BLOOD SPECIMENOrdering Facility: [facility] Address: [address] [place] [address] Result Comment: Zeny mated Glomerular Filtration Rate [...] actual GFR. Performed By: #### 2 4323-8, 07166-0, 2776- ####[facility] [id number] [place] [address] [place] Glucose [Mass/Vol] 131 mg/dL High 74-99 [facility] Comment on above: Order Comment: Dora finch Type: BLOOD SPECIMENOrdering Facility: [facility] Address: [address] [place] [address] Result Comment: The [place] (ADA) provides guidance for cutoff [...] Standards of Medical Care in Diabetes 2016, [employer]. Diabetes Care. 2016.39(Suppl 1). Performed By: #### 2 4323-8, 77606-7, 2776- ####[facility] LABIA [id number] [address] [address] [place] Potassium [Moles/Vol] 2.9 mmol/L Low 3.7-5.1 [facility] Comment on above: Order Comment: Speci men Type: BLOOD SPECIMENOrdering Facility: [facility] Address: [address] [place], [place] [address] Performed By: #### 2 4323-8, , 2776-06 ####[facility] LABCLIA [id number] [address] [address] [place] Protein [Mass/Vol] 5.5 g/dL Low 6.3-8.0 [facility] Comment on above: Order Comment: Speci men Type: BLOOD SPECIMENOrdering Facility: [facility] Address: [address] [place], [place] [address] Performed By: #### 2 4323-8, , 2776-06 ####[facility] LABCLIA [id number] [address] [address] [place] Sodium [Moles/Vol] 137 mmol/L Normal 136-144 [facility] Comment on above: Order Comment: Speci men Type: BLOOD SPECIMENOrdering Facility: [facility] Address: [address] [place], [place] [address] Performed By: #### 2 4323-8, , 2776-06 ####[facility] LABCLIA [id number] [address] [address] [place] Urea nitrogen [Mass/Vol] 11 mg/dL Normal 7-21 [facility] Comment on above: Order Comment: Speci men Type: BLOOD SPECIMENOrdering Facility: [facility] Address: [address] [place], [place] [address] Performed By: #### 2 4323-8, , 2776-06 ####[facility] LABCLIA [id number] [address] [address] [place] Magnesium SerPl-mCncon 12-17 Magnesium [Mass/Vol] 1.8 mg/dL Normal 1.7-2.3 [facility] Comment on above: Order Comment: Speci men Type: BLOOD SPECIMENOrdering Facility: [facility] Address: [address] [place] [address] Performed By: #### 2 4323-8, 97588-7, 7- ####[facility] LABCLIA [id number] [address] [place] [address] [place] Phosphate SerPl-mCncon 12-17 Phosphate [Mass/Vol] 3.1 mg/dL Normal 2.7-4.8 [facility] Comment on above: Order Comment: Speci men Type: BLOOD SPECIMENOrdering Facility: [facility] Address: [address] [place] [address] Performed By: #### 2 4323-8, , 2776-06 ####[facility] LABCLIA [id number] [address], [place] [address] [place] CBC W Auto Differential pane l (Bld)on 12-16-2024 Basophils (Bld) [#/Vol] 10*3/uL Normal <0.11 [facility] Comment on above: Order Comment: Speci men Type: BLOOD SPECIMENOrdering Facility: [facility] Address: [address] [place] [address] Performed By: #### 5 7021-8 ####[facility] LABCLIA [id number] [address], [facility]95 [place] Basophils/100 WBC (Bld) 0.2 % Normal [facility] Comment on above: Order Comment: Speci men Type: BLOOD SPECIMENOrdering Facility: [facility] Address: [address] [place] [address] Performed By: #### 5 7021-8 ####[facility] LABCLIA [id number] [address], [facility]95 [place] Differential cell count method Nom (Bld) Auto Normal [facility] Comment on above: Order Comment: Speci men Type: BLOOD SPECIMENOrdering Facility: [facility] Address: [address] [place] [address] Performed By: #### 5 7021-8 ####[facility] LABCLIA [id number] [address], [place] [address] [place] Eosinophils (Bld) [#/Vol] 0.32 10*3/uL Normal <0.46 [facility] Comment on above: Order Comment: Speci men Type: BLOOD SPECIMENOrdering Facility: [facility] Address: [address] [place] [address] Performed By: #### 5 7021-8 ####[facility] LABCLIA [id number] [address], [place] [address] [place] Eosinophils/100 WBC (Bld) 3.7 % Normal [facility] Comment on above: Order Comment: Speci men Type: BLOOD SPECIMENOrdering Facility: [facility] Address: [address] [place] [address] Performed By: #### 5 7021-8 ####[facility] LABCLIA [id number] [address], [facility]95 [place] Erythrocyte distribution width (RBC) [Ratio] 21.1 % High 11.5-15.0 [facility] Comment on above: Order Comment: Speci men Type: BLOOD SPECIMENOrdering Facility: [facility] Address: [address] [place] [address] Performed By: #### 5 7021-8 ####[facility] LABCLIA [id number] [address], [facility]95 [place] Hematocrit (Bld) [Volume fraction] 24.0 % Low 36.0-46.0 [facility] Comment on above: Order Comment: Speci men Type: BLOOD SPECIMENOrdering Facility: [facility] Address: [address] [place] [address] Performed By: #### 5 7021-8 ####[facility] LABCLIA [id number] [address], [facility]95 [place] Hemoglobin (Bld) [Mass/Vol] 7.4 g/dL Low 11.5-15.5 [facility] Comment on above: Order Comment: Speci men Type: BLOOD SPECIMENOrdering Facility: [facility] Address: [address] [place] [address] Performed By: #### 5 7021-8 ####[facility] LABCLIA [id number] [place] [address] [place] Immature granulocytes (Bld) [#/Vol] 0.04 10*3/uL Normal <0.10 [facility] Comment on above: Order Comment: Speci men Type: BLOOD SPECIMENOrdering Facility: [facility] Address: [address] [place] [address] Performed By: #### 5 7021-8 ####[facility] LABCLIA [id number] [place] [address] [place] Immature granulocytes/100 WBC (Bld) 0.5 % Normal [facility] Comment on above: Order Comment: Speci men Type: BLOOD SPECIMENOrdering Facility: [facility] Address: [address] [place] [address] Performed By: #### 5 7021-8 ####[facility] LABCLIA [id number] [place] [address] [place] Lymphocytes (Bld) [#/Vol] 1.03 10*3/uL Normal 1.00-4.00 [facility] Comment on above: Order Comment: Speci men Type: BLOOD SPECIMENOrdering Facility: [facility] Address: [address] [place] [address] Performed By: #### 5 7021-8 ####[facility] LABCLIA [id number] [place] [address] [place] Lymphocytes/100 WBC (Bld) 11.9 % Normal [facility] Comment on above: Order Comment: Speci men Type: BLOOD SPECIMENOrdering Facility: [facility] Address: [address] [place] [address] Performed By: #### 5 7021-8 ####[facility] LABIA [id number] [place] [address] [place] [facility] MCH (RBC) [Entitic mass] 26.9 pg Normal 26.0-34.0 [facility] Comment on above: Order Comment: Speci men Type: BLOOD SPECIMENOrdering Facility: [facility] Address: [address] [place] [address] Performed By: #### 5 7021-8 ####[facility] LABIA [id number] [place] [address] [place] MCHC (RBC) [Mass/Vol] 30.8 g/dL Normal 30.5-36.0 [facility] Comment on above: Order Comment: Speci men Type: BLOOD SPECIMENOrdering Facility: [facility] Address: [address] [place] [address] Performed By: #### 5 7021-8 ####[facility] LABIA [id number] [place] [address] [place] MCV (RBC) [Entitic vol] 87.3 fL Normal 80.0-100.0 [facility] Comment on above: Order Comment: Speci men Type: BLOOD SPECIMENOrdering Facility: [facility] Address: [address] [place] [address] Performed By: #### 5 7021-8 ####[facility] LABIA [id number] [place] [address] [place] Monocytes (Bld) [#/Vol] 0.59 10*3/uL Normal <0.87 [facility] Comment on above: Order Comment: Speci men Type: BLOOD SPECIMENOrdering Facility: [facility] Address: [address] [place] [address] Performed By: #### 5 7021-8 ####[facility] LABCLIA [id number] [place] [id number] [place] Monocytes/100 WBC (Bld) 6.8 % Normal [facility] Comment on above: Order Comment: Speci men Type: BLOOD SPECIMENOrdering Facility: [facility] Address: [address] [place] [address] Performed By: #### 5 7021-8 ####[facility] LABCLIA [id number] [place] [address] [place] Neutrophils (Bld) [#/Vol] 6.65 10*3/uL Normal 1.45-7.50 [facility] Comment on above: Order Comment: Speci men Type: BLOOD SPECIMENOrdering Facility: [facility] Address: [address] [place] [address] Performed By: #### 5 7021-8 ####[facility] LABCLIA [id number] [place] [address] [place] Neutrophils/100 WBC (Bld) 76.9 % Normal [facility] Comment on above: Order Comment: Speci men Type: BLOOD SPECIMENOrdering Facility: [facility] Address: [address] [place] [address] Performed By: #### 5 7021-8 ####[facility] LABIA [id number] [place] [address] [place] Nucleated RBC (Bld) [#/Vol] 10*3/uL Normal <0.01 [facility] Comment on above: Order Comment: Speci men Type: BLOOD SPECIMENOrdering Facility: [facility] Address: [address] [place] [address] Performed By: #### 5 7021-8 ####[facility] LABCLIA [id number] [place] [id number] [place] Nucleated RBC/100 WBC (Bld) [Ratio] 0.0 /100 WBC Normal [facility] Comment on above: Order Comment: Speci men Type: BLOOD SPECIMENOrdering Facility: [facility] Address: [address] [place] [address] Performed By: #### 5 7021-8 ####[facility] LABIA [id number] [place] [address] [place] Platelet mean volume (Bld) [Entitic vol] 10.0 fL Normal 9.0-12.7 [facility] Comment on above: Order Comment: Speci men Type: BLOOD SPECIMENOrdering Facility: [facility] Address: [address] [place] [address] Performed By: #### 5 7021-8 ####[facility] LABIA [id number] [place] [address] [place] Platelets (Bld) [#/Vol] 225 10*3/uL Normal 150-400 [facility] Comment on above: Order Comment: Speci men Type: BLOOD SPECIMENOrdering Facility: [facility] Address: [address] [place] [address] Performed By: #### 5 7021-8 ####[facility] LABIA [id number] [place] [address] [place] RBC (Bld) [#/Vol] 2.75 10*6/uL Low 3.90-5.20 [facility] Comment on above: Order Comment: Speci men Type: BLOOD SPECIMENOrdering Facility: [facility] Address: [address] [place] [address] Performed By: #### 5 7021-8 ####[facility] LABIA [id number] [place] [address] [place] WBC (Bld) [#/Vol] 8.65 10*3/uL Normal 3.70-11.00 [facility] Comment on above: Order Comment: Speci men Type: BLOOD SPECIMENOrdering Facility: [facility] Address: [address] [place] [address] Performed By: #### 5 7021-8 ####[facility] LABCLIA [id number] [address] [address] [place] Comprehensive metabolic 2000 panelon 12-16-2024 Albumin [Mass/Vol] 2.8 g/dL Low 3.9-4.9 [facility] Comment on above: Order Comment: Speci men Type: BLOOD SPECIMENOrdering Facility: [facility] Address: [address] [place] [address] Performed By: #### 2 4323-8, , 2776- ####[facility] LABCLIA [id number] [place] [id number] [place] ALP [Catalytic activity/Vol] 84 U/L Normal 34-123 [facility] Comment on above: Order Comment: Speci men Type: BLOOD SPECIMENOrdering Facility: [facility] Address: [address] [place] [address] Performed By: #### 2 4323-8, , 2776-06 ####[facility] LABCLIA [id number] [place] [id number] [place] ALT [Catalytic activity/Vol] 16 U/L Normal 7-38 [facility] Comment on above: Order Comment: Speci men Type: BLOOD SPECIMENOrdering Facility: [facility] Address: [address] [place] [address] Performed By: #### 2 4323-8, , 2776-06 ####[facility] LABCLIA [id number] [address] [address] [place] Anion gap [Moles/Vol] 12 mmol/L Normal 8-15 [facility] Comment on above: Order Comment: Speci men Type: BLOOD SPECIMENOrdering Facility: [facility] Address: [address] [place] [address] Performed By: #### 2 4323-8, , 2776- ####[facility] LABCLIA [id number] [address] [place] [address] [place] AST [Catalytic activity/Vol] 11 U/L Low 13-35 [facility] Comment on above: Order Comment: Speci men Type: BLOOD SPECIMENOrdering Facility: [facility] Address: [address] [place] [address] Performed By: #### 2 4323-8, , 2776-06 ####[facility] LABCLIA [id number] [address] [place] [address] [place] Bilirubin [Mass/Vol] 0.3 mg/dL Normal 0.2-1.3 [facility] Comment on above: Order Comment: Speci men Type: BLOOD SPECIMENOrdering Facility: [facility] Address: [address] [place] [address] Performed By: #### 2 4323-8, , 2776-06 ####[facility] LABCLIA [id number] [address], [facility] [place] Calcium [Mass/Vol] 8.6 mg/dL Normal 8.5-10.2 [facility] Comment on above: Order Comment: Speci men Type: BLOOD SPECIMENOrdering Facility: [facility] Address: [address] [place] [address] Performed By: #### 2 4323-8, , 2776-06 ####[facility] LABCLIA [id number] [place] [id number] [place] Chloride [Moles/Vol] 101 mmol/L Normal 98-107 [facility] Comment on above: Order Comment: Speci men Type: BLOOD SPECIMENOrdering Facility: [facility] Address: [address] [place] [address] Performed By: #### 2 4323-8, , 2776-06 ####[facility] LABCLIA [id number] [address] [address] [place] CO2 [Moles/Vol] 23 mmol/L Normal 22-30 [facility] Comment on above: Order Comment: Speci men Type: BLOOD SPECIMENOrdering Facility: [facility] Address: [address] [place] [address] Performed By: #### 2 4323-8, 49792-1, 2776-06 ####[facility] LABCLIA [id number] [place] [id number] [place] Creatinine [Mass/Vol] 0.64 mg/dL Normal 0.58-0.96 [facility] Comment on above: Order Comment: Speci men Type: BLOOD SPECIMENOrdering Facility: [facility] Address: [address] [place] [address] Performed By: #### 2 4323-8, , 2776-06 ####[facility] LABIA [id number] [place] [address] [place] Creatinine and Glomerular filtration rate.predicted panel (S/P/Bld) 114 mL/min/1.73m??? Normal >=60 [facility] Comment on above: Order Comment: Dora finch Type: BLOOD SPECIMENOrdering Facility: [facility] Address: [address] [place] [address] Result Comment: Zeny mated Glomerular Filtration Rate [...] Performed By: #### 2 4323-8, , 2776-06 ####[facility] LABCLIA [id number] [place] [id number] [place] Glucose [Mass/Vol] 140 mg/dL High 74-99 [facility] Comment on above: Order Comment: Speci men Type: BLOOD SPECIMENOrdering Facility: [facility] Address: [address] [place], [place] [address] Result Comment: The [place] Diabetes [employer] (ADA) provides guidance for cutoff [...] Standards of Medical Care in Diabetes 2016, [place] [employer]. Diabetes Care. 2016.39(Suppl 1). Performed By: #### 2 4323-8, , 2776-06 ####[facility] LABCLIA [id number] [place] [address] [place] Potassium [Moles/Vol] 2.8 mmol/L Low 3.7-5.1 [facility] Comment on above: Order Comment: Speci men Type: BLOOD SPECIMENOrdering Facility: [facility] Address: [address] [place], [place] [address] Performed By: #### 2 4323-8, , 2776-06 ####[facility] LABCLIA [id number] [address] [address] [place] Protein [Mass/Vol] 5.7 g/dL Low 6.3-8.0 [facility] Comment on above: Order Comment: Speci men Type: BLOOD SPECIMENOrdering Facility: [facility] Address: [address] [place], [place] [address] Performed By: #### 2 4323-8, , 2776-06 ####[facility] LABCLIA [id number] [address] [address] [place] Sodium [Moles/Vol] 136 mmol/L Normal 136-144 [facility] Comment on above: Order Comment: Speci men Type: BLOOD SPECIMENOrdering Facility: [facility] Address: [address] [place] [address] Performed By: #### 2 4323-8, , 2776-06 ####[facility] LABCLIA [id number] [place] [address] [place] Urea nitrogen [Mass/Vol] 11 mg/dL Normal 7-21 [facility] Comment on above: Order Comment: Speci men Type: BLOOD SPECIMENOrdering Facility: [facility] Address: [address] [place] [address] Performed By: #### 2 4323-8, , 2776-06 ####[facility] LABIA [id number] [place] [address] [place] Magnesium SerPl-mCncon 12-16 Magnesium [Mass/Vol] 1.9 mg/dL Normal 1.7-2.3 [facility] Comment on above: Order Comment: Speci men Type: BLOOD SPECIMENOrdering Facility: [facility] Address: [address] [place] [address] Performed By: #### 2 4323-8, , 2776-06 ####[facility] [id number] [place] [address] [place] Phosphate SerPl-mCncon 12-16 Phosphate [Mass/Vol] 2.4 mg/dL Low 2.7-4.8 [facility] Comment on above: Order Comment: Speci men Type: BLOOD SPECIMENOrdering Facility: [facility] Address: [address] [place] [address] Performed By: #### 2 4323-8, , 2776-06 ####[facility] LABIA [id number] [place] [address] [place] Vancomycin [place] SerPl-mCncon 12-16-2024 Vancomycin random [Mass/Vol] 11.6 ug/mL Normal 10.0-20.0 [facility] Comment on above: Order Comment: Speci men Type: BLOOD SPECIMENOrdering Facility: [facility] Address: [address] [place] [address] Result Comment: Refe rence ranges and high/low indicator flags are provided as general guidelines only. The treating physician must determine appropriate target levels/dosing based on the specific clinical situation. Performed By: #### 4 091-5 ####[facility] LABCLIA [id number] [place] [address] [place] CBC W Auto Differential pane l (Bld)on 12-15-2024 Basophils (Bld) [#/Vol] 0.03 10*3/uL Normal <0.11 [facility] Comment on above: Order Comment: Speci men Type: BLOOD SPECIMENOrdering Facility: [facility] Address: [address] [place] [address] Performed By: #### 5 7021-8 ####[facility] LABCLIA [id number] [place] [address] [place] Basophils/100 WBC (Bld) 0.3 % Normal [facility] Comment on above: Order Comment: Speci men Type: BLOOD SPECIMENOrdering Facility: [facility] Address: [address] [place] [address] Performed By: #### 5 7021-8 ####[facility] LABCLIA [id number] [place] [address] [place] Differential cell count method Nom (Bld) Auto Normal [facility] Comment on above: Order Comment: Speci men Type: BLOOD SPECIMENOrdering Facility: [facility] Address: [address] [place] [address] Performed By: #### 5 7021-8 ####[facility] LABCLIA [id number] [place] [address] [place] Eosinophils (Bld) [#/Vol] 0.38 10*3/uL Normal <0.46 [facility] Comment on above: Order Comment: Speci men Type: BLOOD SPECIMENOrdering Facility: [facility] Address: [address] [place] [address] Performed By: #### 5 7021-8 ####[facility] LABCLIA [id number] [facility] [place] [address] [place] Eosinophils/100 WBC (Bld) 3.4 % Normal [facility] Comment on above: Order Comment: Speci men Type: BLOOD SPECIMENOrdering Facility: [facility] Address: [address] [place] [address] Performed By: #### 5 7021-8 ####[facility] LABIA [id number] [address], [place] [address] [place] Erythrocyte distribution width (RBC) [Ratio] 21.5 % High 11.5-15.0 [facility] Comment on above: Order Comment: Speci men Type: BLOOD SPECIMENOrdering Facility: [facility] Address: [address] [place] [address] Performed By: #### 5 7021-8 ####[facility] LABIA [id number] [place] [address] [place] Hematocrit (Bld) [Volume fraction] 25.3 % Low 36.0-46.0 [facility] Comment on above: Order Comment: Speci men Type: BLOOD SPECIMENOrdering Facility: [facility] Address: [address] [place] [address] Performed By: #### 5 7021-8 ####[facility] LABIA [id number] [place] [address] [place] Hemoglobin (Bld) [Mass/Vol] 7.6 g/dL Low 11.5-15.5 [facility] Comment on above: Order Comment: Speci men Type: BLOOD SPECIMENOrdering Facility: [facility] Address: [address] [place] [address] Performed By: #### 5 7021-8 ####[facility] LABCLIA [id number] [place] [address] [place] Immature granulocytes (Bld) [#/Vol] 0.08 10*3/uL Normal <0.10 [facility] Comment on above: Order Comment: Speci men Type: BLOOD SPECIMENOrdering Facility: [facility] Address: [address] [place] [address] Performed By: #### 5 7021-8 ####[facility] LABCLIA [id number] [address] [place] Immature granulocytes/100 WBC (Bld) 0.7 % Normal [facility] Comment on above: Order Comment: Speci men Type: BLOOD SPECIMENOrdering Facility: [facility] Address: [address] [place] [address] Performed By: #### 5 7021-8 ####[facility] LABCLIA [id number] [place] [address] [place] Lymphocytes (Bld) [#/Vol] 1.39 10*3/uL Normal 1.00-4.00 [facility] Comment on above: Order Comment: Speci men Type: BLOOD SPECIMENOrdering Facility: [facility] Address: [address] [place] [address] Performed By: #### 5 7021-8 ####[facility] LABCLIA [id number] [place] [id number] [place] Lymphocytes/100 WBC (Bld) 12.5 % Normal [facility] Comment on above: Order Comment: Speci men Type: BLOOD SPECIMENOrdering Facility: [facility] Address: [address] [place] [address] Performed By: #### 5 7021-8 ####[facility] LABCLIA [id number] [place] [id number] [place] MCH (RBC) [Entitic mass] 26.4 pg Normal 26.0-34.0 [facility] Comment on above: Order Comment: Speci men Type: BLOOD SPECIMENOrdering Facility: [facility] Address: [address] [place] [address] Performed By: #### 5 7021-8 ####[facility] LABCLIA [id number] [place] [address] [place] MCHC (RBC) [Mass/Vol] 30.0 g/dL Low 30.5-36.0 [facility] Comment on above: Order Comment: Speci men Type: BLOOD SPECIMENOrdering Facility: [facility] Address: [address] [place] [address] Performed By: #### 5 7021-8 ####[facility] LABIA [id number] [place] [address] [place] MCV (RBC) [Entitic vol] 87.8 fL Normal 80.0-100.0 [facility] Comment on above: Order Comment: Speci men Type: BLOOD SPECIMENOrdering Facility: [facility] Address: [address] [place] [address] Performed By: #### 5 7021-8 ####[facility] LABIA [id number] [place] [address] [place] Monocytes (Bld) [#/Vol] 0.82 10*3/uL Normal <0.87 [facility] Comment on above: Order Comment: Speci men Type: BLOOD SPECIMENOrdering Facility: [facility] Address: [address] [place] [address] Performed By: #### 5 7021-8 ####[facility] LABCLIA [id number] [address] [place] Monocytes/100 WBC (Bld) 7.4 % Normal [facility] Comment on above: Order Comment: Speci men Type: BLOOD SPECIMENOrdering Facility: [facility] Address: [address] [place] [address] Performed By: #### 5 7021-8 ####[facility] LABCLIA [id number] [address], [place] [address] [place] Neutrophils (Bld) [#/Vol] 8.45 10*3/uL High 1.45-7.50 [facility] Comment on above: Order Comment: Speci men Type: BLOOD SPECIMENOrdering Facility: [facility] Address: [address] [place] [address] Performed By: #### 5 7021-8 ####[facility] LABCLIA [id number] [address], [place] [address] [place] Neutrophils/100 WBC (Bld) 75.7 % Normal [facility] Comment on above: Order Comment: Speci men Type: BLOOD SPECIMENOrdering Facility: [facility] Address: [address] [place] [address] Performed By: #### 5 7021-8 ####[facility] LABCLIA [id number] [address], [place] [address] [place] Nucleated RBC (Bld) [#/Vol] 10*3/uL Normal <0.01 [facility] Comment on above: Order Comment: Speci men Type: BLOOD SPECIMENOrdering Facility: [facility] Address: [address] [place] [address] Performed By: #### 5 7021-8 ####[facility] LABCLIA [id number] [facility] [address], [facility] [place] Nucleated RBC/100 WBC (Bld) [Ratio] 0.0 /100 WBC Normal [facility] Comment on above: Order Comment: Speci men Type: BLOOD SPECIMENOrdering Facility: [facility] Address: [address] [place] [address] Performed By: #### 5 7021-8 ####[facility] LABCLIA [id number] [place] [address] [place] Platelet mean volume (Bld) [Entitic vol] 10.1 fL Normal 9.0-12.7 [facility] Comment on above: Order Comment: Speci men Type: BLOOD SPECIMENOrdering Facility: [facility] Address: [address] [place] [address] Performed By: #### 5 7021-8 ####[facility] LABIA [id number] [place] [address] [place] Platelets (Bld) [#/Vol] 209 10*3/uL Normal 150-400 [facility] Comment on above: Order Comment: Speci men Type: BLOOD SPECIMENOrdering Facility: [facility] Address: [address] [place] [address] Performed By: #### 5 7021-8 ####[facility] LABIA [id number] [place] [address] [place] RBC (Bld) [#/Vol] 2.88 10*6/uL Low 3.90-5.20 [facility] Comment on above: Order Comment: Speci men Type: BLOOD SPECIMENOrdering Facility: [facility] Address: [address] [place] [address] Performed By: #### 5 7021-8 ####[facility] LABIA [id number] [place] [address] [place] WBC (Bld) [#/Vol] 11.15 10*3/uL High 3.70-11.00 [facility] Comment on above: Order Comment: Speci men Type: BLOOD SPECIMENOrdering Facility: [facility] Address: [address] [place] [address] Performed By: #### 5 7021-8 ####[facility] LABIA [id number] [place] [id number] [place] CBC panel Auto (Bld)on 12-15 Erythrocyte distribution width (RBC) [Ratio] 21.4 % High 11.5-15.0 [facility] Comment on above: Order Comment: Speci men Type: BLOOD SPECIMENOrdering Facility: [facility] Address: [address] [place] [address] Performed By: #### 5 8410-2 ####[facility] LABIA [id number] [place] [address] [place] Hematocrit (Bld) [Volume fraction] 25.5 % Low 36.0-46.0 [facility] Comment on above: Order Comment: Speci men Type: BLOOD SPECIMENOrdering Facility: [facility] Address: [address] [place] [address] Performed By: #### 5 8410-2 ####[facility] LABIA [id number] [place] [address] [place] Hemoglobin (Bld) [Mass/Vol] 7.7 g/dL Low 11.5-15.5 [facility] Comment on above: Order Comment: Speci men Type: BLOOD SPECIMENOrdering Facility: [facility] Address: [address] [place] [address] Performed By: #### 5 8410-2 ####[facility] LABIA [id number] [place] [address] [place] MCH (RBC) [Entitic mass] 26.6 pg Normal 26.0-34.0 [facility] Comment on above: Order Comment: Speci men Type: BLOOD SPECIMENOrdering Facility: [facility] Address: [address] [place] [address] Performed By: #### 5 8410-2 ####[facility] LABIA [id number] [place] [address] [place] MCHC (RBC) [Mass/Vol] 30.2 g/dL Low 30.5-36.0 [facility] Comment on above: Order Comment: Speci men Type: BLOOD SPECIMENOrdering Facility: [facility] Address: [address] [place] [address] Performed By: #### 5 8410-2 ####[facility] LABCLIA [id number] [place] [address] [place] MCV (RBC) [Entitic vol] 87.9 fL Normal 80.0-100.0 [facility] Comment on above: Order Comment: Speci men Type: BLOOD SPECIMENOrdering Facility: [facility] Address: [address] [place] [address] Performed By: #### 5 8410-2 ####[facility] LABIA [id number] [place] [address] [place] Nucleated RBC (Bld) [#/Vol] 10*3/uL Normal <0.01 [facility] Comment on above: Order Comment: Speci men Type: BLOOD SPECIMENOrdering Facility: [facility] Address: [address] [place] [address] Performed By: #### 5 8410-2 ####[facility] LABIA [id number] [place] [address] [place] Platelet mean volume (Bld) [Entitic vol] 9.6 fL Normal 9.0-12.7 [facility] Comment on above: Order Comment: Speci men Type: BLOOD SPECIMENOrdering Facility: [facility] Address: [address] [place] [address] Performed By: #### 5 8410-2 ####[facility] LABCLIA [id number] [place] [id number] [place] Platelets (Bld) [#/Vol] 212 10*3/uL Normal 150-400 [facility] Comment on above: Order Comment: Speci men Type: BLOOD SPECIMENOrdering Facility: [facility] Address: [address] [place] [address] Performed By: #### 5 8410-2 ####[facility] LABCLIA [id number] [address] [address] [place] RBC (Bld) [#/Vol] 2.90 10*6/uL Low 3.90-5.20 [facility] Comment on above: Order Comment: Speci men Type: BLOOD SPECIMENOrdering Facility: [facility] Address: [address] [place] [address] Performed By: #### 5 8410-2 ####[facility] LABCLIA [id number] [place] [id number] [place] WBC (Bld) [#/Vol] 11.25 10*3/uL High 3.70-11.00 [facility] Comment on above: Order Comment: Speci men Type: BLOOD SPECIMENOrdering Facility: [facility] Address: [address] [place] [address] Performed By: #### 5 8410-2 ####[facility] LABCLIA [id number] [place] [id number] [place] CRP SerPl-ncon 12-15-2024 CRP [Mass/Vol] 26.8 mg/dL High <0.9 [facility] Comment on above: Order Comment: Speci men Type: BLOOD SPECIMENOrdering Facility: [facility] Address: [address] [place] [address] Performed By: #### 2 4323-8, 1987-10, , 2776-06 ####[facility] LABCLIA [id number] [place] [id number] [place] Comprehensive metabolic 2000 panelon 12-15-2024 Albumin [Mass/Vol] 2.9 g/dL Low 3.9-4.9 [facility] Comment on above: Order Comment: Speci men Type: BLOOD SPECIMENOrdering Facility: [facility] Address: [address] [place] [address] Performed By: #### 2 4323-8, 1987-10, , 2776-06 ####[facility] LABCLIA [id number] [address] [address] [place] ALP [Catalytic activity/Vol] 95 U/L Normal 34-123 [facility] Comment on above: Order Comment: Speci men Type: BLOOD SPECIMENOrdering Facility: [facility] Address: [address] [place] [address] Performed By: #### 2 4323-8, 1987-10, , 2776-06 ####[facility] LABCLIA [id number] [place] [id number] [place] ALT [Catalytic activity/Vol] 19 U/L Normal 7-38 [facility] Comment on above: Order Comment: Speci men Type: BLOOD SPECIMENOrdering Facility: [facility] Address: [address] [place] [address] Performed By: #### 2 4328, 1987-10, , 2776-06 ####[facility] LABCLIA [id number] [place] [address] [place] Anion gap [Moles/Vol] 11 mmol/L Normal 8-15 [facility] Comment on above: Order Comment: Speci men Type: BLOOD SPECIMENOrdering Facility: [facility] Address: [address] [place] [address] Performed By: #### 2 43238, 1987-10, , 2776-06 ####[facility] LABCLIA [id number] [place] [id number] [place] AST [Catalytic activity/Vol] 11 U/L Low 13-35 [facility] Comment on above: Order Comment: Speci men Type: BLOOD SPECIMENOrdering Facility: [facility] Address: [address] [place] [address] Performed By: #### 2 4323-8, 1987-10, , 2776-06 ####[facility] LABCLIA [id number] [address] [place] [address] [place] Bilirubin [Mass/Vol] 0.5 mg/dL Normal 0.2-1.3 [facility] Comment on above: Order Comment: Speci men Type: BLOOD SPECIMENOrdering Facility: [facility] Address: [address] [place], [place] [address] Performed By: #### 2 4328, 1987-10, , 2776-06 ####[facility] LABCLIA [id number] [facility] [address] [place] [address] [place] Calcium [Mass/Vol] 8.6 mg/dL Normal 8.5-10.2 [facility] Comment on above: Order Comment: Speci men Type: BLOOD SPECIMENOrdering Facility: [facility] Address: [address] [place] [address] Performed By: #### 2 4328, 1987-10, , 2776-06 ####[facility] LABCLIA [id number] [facility] [address] [place] [address] [place] Chloride [Moles/Vol] 100 mmol/L Normal 98-107 [facility] Comment on above: Order Comment: Speci men Type: BLOOD SPECIMENOrdering Facility: [facility] Address: [address] [place], [place] [address] Performed By: #### 2 4328, 1987-10, , 2776-06 ####[facility] LABCLIA [id number] [facility] [address] [place] [address] [place] CO2 [Moles/Vol] 23 mmol/L Normal 22-30 [facility] Comment on above: Order Comment: Speci men Type: BLOOD SPECIMENOrdering Facility: [facility] Address: [address] [place], [place] [address] Performed By: #### 2 4323-8, 1987-10, , 2776-06 ####[facility] LABCLIA [id number] [place] [address] [address] [place] Creatinine [Mass/Vol] 0.75 mg/dL Normal 0.58-0.96 [facility] Comment on above: Order Comment: Dora finch Type: BLOOD SPECIMENOrdering Facility: [facility] Address: [address] [place] [id number] Performed By: #### 2 4323-8, 1987-10, , 2776-06 ####[facility] LABIA [id number] [place] [address] [place] Creatinine and Glomerular filtration rate.predicted panel (S/P/Bld) 103 mL/min/1.73m??? Normal >=60 [facility] Comment on above: Order Comment: Droa finch Type: BLOOD SPECIMENOrdering Facility: [facility] Address: [address] [place] [address] Result Comment: Zeny mated Glomerular Filtration Rate [...] actual GFR. Performed By: #### 2 4323-8, 1987-10, , 2776-06 ####[facility] LABIA [id number] [place] [id number] [place] Glucose [Mass/Vol] 103 mg/dL High 74-99 [facility] Comment on above: Order Comment: Dora finch Type: BLOOD SPECIMENOrdering Facility: [facility] Address: [address] [place] [address] Result Comment: The [place] [employer] (ADA) provides guidance for cutoff [...] Standards of Medical Care in Diabetes 2016, [employer]. Diabetes Care. 2016.39(Suppl 1). Performed By: #### 2 43238, 1987-10, , 2776-06 ####[facility] LABCLIA [id number] [address] [address] [place] Potassium [Moles/Vol] 3.0 mmol/L Low 3.7-5.1 [facility] Comment on above: Order Comment: Speci men Type: BLOOD SPECIMENOrdering Facility: [facility] Address: [address] [place] [address] Performed By: #### 2 43209-01, 1987-10, , 2776-06 ####[facility] LABIA [id number] [place] [address] [place] Protein [Mass/Vol] 6.0 g/dL Low 6.3-8.0 [facility] Comment on above: Order Comment: Florii men Type: BLOOD SPECIMENOrdering Facility: [facility] Address: [address] [place] [address] Performed By: #### 2 43209-01, 1987-10, , 2776-06 ####[facility] [id number] [place] [id number] [place] Sodium [Moles/Vol] 134 mmol/L Low 136-144 [facility] Comment on above: Order Comment: Speci men Type: BLOOD SPECIMENOrdering Facility: [facility] Address: [address] [place] [address] Performed By: #### 2 [id number], 1987-10, , 2776-06 ####[facility]IA [id number] [place] [id number] [place] Urea nitrogen [Mass/Vol] 11 mg/dL Normal 7-21 [facility] Comment on above: Order Comment: Speci men Type: BLOOD SPECIMENOrdering Facility: [facility] Address: [address] [place], [place] [address] Performed By: #### 2 4323-8, 1987-10, , 2776-06 ####[facility] LABIA [id number] [place] [id number] [place] Magnesium SerPl-mCncon 12-15 Magnesium [Mass/Vol] 1.9 mg/dL Normal 1.7-2.3 [facility] Comment on above: Order Comment: Speci men Type: BLOOD SPECIMENOrdering Facility: [facility] Address: [address] [place] [address] Performed By: #### 2 4323-8, 1987-10, , 2776-06 ####[facility]IA [id number] [place] [id number] [place] Phosphate SerPl-mCncon 12-15 Phosphate [Mass/Vol] 2.8 mg/dL Normal 2.7-4.8 [facility] Comment on above: Order Comment: Speci men Type: BLOOD SPECIMENOrdering Facility: [facility] Address: [address] [place] [address] Performed By: #### 2 43238, 1987-10, , 2776-06 ####[facility]IA [id number] [address] [address] [place] CASE MANAGEMon 12-14-2024 CASE MANAGEM Normal [facility] CBC W Auto Differential pane l (Bld)on 12-14-2024 Basophils (Bld) [#/Vol] 0.05 10*3/uL Normal <0.11 [facility] Comment on above: Order Comment: Speci men Type: BLOOD SPECIMENOrdering Facility: [facility] Address: [address] [place] [address] Performed By: #### 5 7021-8 ####[facility] LABCLIA [id number] [place] [address] [place] Basophils/100 WBC (Bld) 0.3 % Normal [facility] Comment on above: Order Comment: Speci men Type: BLOOD SPECIMENOrdering Facility: [facility] Address: [address] [place] [address] Performed By: #### 5 7021-8 ####[facility] LABCLIA [id number] [place] [address] [place] Differential cell count method Nom (Bld) Auto Normal [facility] Comment on above: Order Comment: Speci men Type: BLOOD SPECIMENOrdering Facility: [facility] Address: [address] [place] [address] Performed By: #### 5 7021-8 ####[facility] LABCLIA [id number] [place] [address] [place] Eosinophils (Bld) [#/Vol] 0.14 10*3/uL Normal <0.46 [facility] Comment on above: Order Comment: Speci men Type: BLOOD SPECIMENOrdering Facility: [facility] Address: [address] [place] [address] Performed By: #### 5 7021-8 ####[facility] LABCLIA [id number] [place] [address] [place] Eosinophils/100 WBC (Bld) 0.9 % Normal [facility] Comment on above: Order Comment: Speci men Type: BLOOD SPECIMENOrdering Facility: [facility] Address: [address] [place] [address] Performed By: #### 5 7021-8 ####[facility] LABCLIA [id number] [place] [address] [place] Erythrocyte distribution width (RBC) [Ratio] 22.0 % High 11.5-15.0 [facility] Comment on above: Order Comment: Speci men Type: BLOOD SPECIMENOrdering Facility: [facility] Address: [address] [place] [address] Performed By: #### 5 7021-8 ####[facility] LABCLIA [id number] [place] [address] [place] Hematocrit (Bld) [Volume fraction] 28.7 % Low 36.0-46.0 [facility] Comment on above: Order Comment: Speci men Type: BLOOD SPECIMENOrdering Facility: [facility] Address: [address] [place] [address] Performed By: #### 5 7021-8 ####[facility] LABCLIA [id number] [place] [address] [place] Hemoglobin (Bld) [Mass/Vol] 8.6 g/dL Low 11.5-15.5 [facility] Comment on above: Order Comment: Speci men Type: BLOOD SPECIMENOrdering Facility: [facility] Address: [address] [place] [address] Performed By: #### 5 7021-8 ####[facility]IA [id number] [place] [address] [place] Immature granulocytes (Bld) [#/Vol] 0.12 10*3/uL High <0.10 [facility] Comment on above: Order Comment: Speci men Type: BLOOD SPECIMENOrdering Facility: [facility] Address: [address] [place] [address] Performed By: #### 5 7021-8 ####[facility]IA [id number] [place] [address] [place] Immature granulocytes/100 WBC (Bld) 0.7 % Normal [facility] Comment on above: Order Comment: Speci men Type: BLOOD SPECIMENOrdering Facility: [facility] Address: [address] [place] [address] Performed By: #### 5 7021-8 ####[facility] LABCLIA [id number] [place] [address] [place] Lymphocytes (Bld) [#/Vol] 1.56 10*3/uL Normal 1.00-4.00 [facility] Comment on above: Order Comment: Speci men Type: BLOOD SPECIMENOrdering Facility: [facility] Address: [address] [place] [address] Performed By: #### 5 7021-8 ####[facility] LABCLIA [id number] [place] [address] [place] Lymphocytes/100 WBC (Bld) 9.7 % Normal [facility] Comment on above: Order Comment: Speci men Type: BLOOD SPECIMENOrdering Facility: [facility] Address: [address] [place] [address] Performed By: #### 5 7021-8 ####[facility] LABCLIA [id number] [place] [address] [place] MCH (RBC) [Entitic mass] 26.5 pg Normal 26.0-34.0 [facility] Comment on above: Order Comment: Speci men Type: BLOOD SPECIMENOrdering Facility: [facility] Address: [address] [place] [address] Performed By: #### 5 7021-8 ####[facility] LABCLIA [id number] [place] [address] [place] MCHC (RBC) [Mass/Vol] 30.0 g/dL Low 30.5-36.0 [facility] Comment on above: Order Comment: Speci men Type: BLOOD SPECIMENOrdering Facility: [facility] Address: [address] [place] [address] Performed By: #### 5 7021-8 ####[facility] LABCLIA [id number] [place] [address] [place] MCV (RBC) [Entitic vol] 88.6 fL Normal 80.0-100.0 [facility] Comment on above: Order Comment: Speci men Type: BLOOD SPECIMENOrdering Facility: [facility] Address: [address] [place] [address] Performed By: #### 5 7021-8 ####[facility] LABCLIA [id number] [place] [address] [place] Monocytes (Bld) [#/Vol] 1.48 10*3/uL High <0.87 [facility] Comment on above: Order Comment: Speci men Type: BLOOD SPECIMENOrdering Facility: [facility] Address: [address] [place] [address] Performed By: #### 5 7021-8 ####[facility] LABCLIA [id number] [place] [address] [place] Monocytes/100 WBC (Bld) 9.2 % Normal [facility] Comment on above: Order Comment: Speci men Type: BLOOD SPECIMENOrdering Facility: [facility] Address: [address] [place] [address] Performed By: #### 5 7021-8 ####[facility] LABCLIA [id number] [place] [address] [place] Neutrophils (Bld) [#/Vol] 12.66 10*3/uL High 1.45-7.50 [facility] Comment on above: Order Comment: Speci men Type: BLOOD SPECIMENOrdering Facility: [facility] Address: [address] [place] [address] Performed By: #### 5 7021-8 ####[facility] LABIA [id number] [place] [address] [place] Neutrophils/100 WBC (Bld) 79.2 % Normal [facility] Comment on above: Order Comment: Speci men Type: BLOOD SPECIMENOrdering Facility: [facility] Address: [address] [place] [address] Performed By: #### 5 7021-8 ####[facility] LABCLIA [id number] [place] [address] [place] Nucleated RBC (Bld) [#/Vol] 0.02 10*3/uL High <0.01 [facility] Comment on above: Order Comment: Speci men Type: BLOOD SPECIMENOrdering Facility: [facility] Address: [address] [place] [address] Performed By: #### 5 7021-8 ####[facility] LABCLIA [id number] [place] [address] [place] Nucleated RBC/100 WBC (Bld) [Ratio] 0.1 /100 WBC Normal [facility] Comment on above: Order Comment: Speci men Type: BLOOD SPECIMENOrdering Facility: [facility] Address: [address] [place] [address] Performed By: #### 5 7021-8 ####[facility]IA [id number] [place] [address] [place] Platelet mean volume (Bld) [Entitic vol] 9.7 fL Normal 9.0-12.7 [facility] Comment on above: Order Comment: Speci men Type: BLOOD SPECIMENOrdering Facility: [facility] Address: [address] [place] [address] Performed By: #### 5 7021-8 ####[facility] LABCLIA [id number] [place] [address] [place] Platelets (Bld) [#/Vol] 236 10*3/uL Normal 150-400 [facility] Comment on above: Order Comment: Speci men Type: BLOOD SPECIMENOrdering Facility: [facility] Address: [address] [place] [address] Performed By: #### 5 7021-8 ####[facility] LABCLIA [id number] [address] [address] [place] RBC (Bld) [#/Vol] 3.24 10*6/uL Low 3.90-5.20 [facility] Comment on above: Order Comment: Speci men Type: BLOOD SPECIMENOrdering Facility: [facility] Address: [address] [place] [address] Performed By: #### 5 7021-8 ####[facility] LABCLIA [id number] [place] [id number] [place] WBC (Bld) [#/Vol] 16.01 10*3/uL High 3.70-11.00 [facility] Comment on above: Order Comment: Speci men Type: BLOOD SPECIMENOrdering Facility: [facility] Address: [address] [place] [address] Performed By: #### 5 7021-8 ####[facility] LABCLIA [id number] [place] [id number] [place] CONSULT PROGon 12-14-2024 CONSULT PROG Normal [facility] CONSULT PROG Normal [facility] Comprehensive metabolic 2000 panelon 12-14-2024 Albumin [Mass/Vol] 3.3 g/dL Low 3.9-4.9 [facility] Comment on above: Order Comment: Speci men Type: BLOOD SPECIMENOrdering Facility: [facility] Address: [address] [place] [address] Performed By: #### 2 4323-8, 68029-6, 2777- ####[facility] LABCLIA [id number] [place] [id number] [place] ALP [Catalytic activity/Vol] 103 U/L Normal 34-123 [facility] Comment on above: Order Comment: Speci men Type: BLOOD SPECIMENOrdering Facility: [facility] Address: [address] [place] [address] Performed By: #### 2 4323-8, 40055-5, 2777-1 ####[facility] LABCLIA [id number] [facility] [id number] [address] [place] ALT [Catalytic activity/Vol] 25 U/L Normal 7-38 [facility] Comment on above: Order Comment: Speci men Type: BLOOD SPECIMENOrdering Facility: [facility] Address: [address] [place] [address] Performed By: #### 2 4323-8, , 2776-06 ####[facility] LABCLIA [id number] [facility] [address] [place] [address] [place] Anion gap [Moles/Vol] 12 mmol/L Normal 8-15 [facility] Comment on above: Order Comment: Speci men Type: BLOOD SPECIMENOrdering Facility: [facility] Address: [address] [place] [address] Performed By: #### 2 4323-8, , 2776-06 ####[facility] LABCLIA [id number] [address] [place] [address] [place] AST [Catalytic activity/Vol] 19 U/L Normal 13-35 [facility] Comment on above: Order Comment: Speci men Type: BLOOD SPECIMENOrdering Facility: [facility] Address: [address] [place] [address] Performed By: #### 2 4323-8, , 2776-06 ####[facility] LABCLIA [id number] [address] [place] [address] [place] Bilirubin [Mass/Vol] 0.9 mg/dL Normal 0.2-1.3 [facility] Comment on above: Order Comment: Speci men Type: BLOOD SPECIMENOrdering Facility: [facility] Address: [address] [place] [address] Performed By: #### 2 4323-8, , 2776- ####[facility] LABCLIA [id number] [address] [place] [address] [place] Calcium [Mass/Vol] 8.6 mg/dL Normal 8.5-10.2 [facility] Comment on above: Order Comment: Speci men Type: BLOOD SPECIMENOrdering Facility: [facility] Address: [address] [place] [address] Performed By: #### 2 4323-8, 99321-0, 2776-06 ####[facility] LABCLIA [id number] [place] [id number] [place] Chloride [Moles/Vol] 100 mmol/L Normal 98-107 [facility] Comment on above: Order Comment: Speci men Type: BLOOD SPECIMENOrdering Facility: [facility] Address: [address] [place] [address] Performed By: #### 2 4323-8, , 2776-06 ####[facility] LABCLIA [id number] [place] [address] [place] CO2 [Moles/Vol] 21 mmol/L Low 22-30 [facility] Comment on above: Order Comment: Speci men Type: BLOOD SPECIMENOrdering Facility: [facility] Address: [address] [place] [address] Performed By: #### 2 4323-8, , 2776-06 ####[facility] LABCLIA [id number] [place] [address] [place] Creatinine [Mass/Vol] 0.91 mg/dL Normal 0.58-0.96 [facility] Comment on above: Order Comment: Speci men Type: BLOOD SPECIMENOrdering Facility: [facility] Address: [address] [place] [address] Performed By: #### 2 4323-8, , 2776-06 ####[facility] LABCLIA [id number] [facility] [place] [id number] [place] Creatinine and Glomerular filtration rate.predicted panel (S/P/Bld) 81 mL/min/1.73m??? Normal >=60 [facility] Comment on above: Order Comment: Dora finch Type: BLOOD SPECIMENOrdering Facility: [facility] Address: [address] [place] [address] Result Comment: Zeny mated Glomerular Filtration Rate [...] Performed By: #### 2 4323-8, , 2776-06 ####[facility] LABIA [id number] [address] [address] [place] Glucose [Mass/Vol] 139 mg/dL High 74-99 [facility] Comment on above: Order Comment: Dora finch Type: BLOOD SPECIMENOrdering Facility: [facility] Address: [address] [place] [address] Result Comment: The [place] (ADA) provides guidance for cutoff [...] Standards of Medical Care in Diabetes 2016, [employer]. Diabetes Care. 2016.39(Suppl 1). Performed By: #### 2 4323-8, 62558-2, 2776- ####[facility]IA [id number] [address] [address] [place] Potassium [Moles/Vol] 3.8 mmol/L Normal 3.7-5.1 [facility] Comment on above: Order Comment: Speci men Type: BLOOD SPECIMENOrdering Facility: [facility] Address: [address] [place], [place] [address] Performed By: #### 2 4323-8, , 2776-06 ####[facility] LABCLIA [id number] [address] [place] [address] [place] Protein [Mass/Vol] 6.2 g/dL Low 6.3-8.0 [facility] Comment on above: Order Comment: Speci men Type: BLOOD SPECIMENOrdering Facility: [facility] Address: [address] [place], [place] [address] Performed By: #### 2 4323-8, , 2776-06 ####[facility] LABCLIA [id number] [address] [address] [place] Sodium [Moles/Vol] 133 mmol/L Low 136-144 [facility] Comment on above: Order Comment: Speci men Type: BLOOD SPECIMENOrdering Facility: [facility] Address: [address] [place], [place] [address] Performed By: #### 2 4323-8, , 2776-06 ####[facility] LABCLIA [id number] [address] [address] [place] Urea nitrogen [Mass/Vol] 11 mg/dL Normal 7-21 [facility] Comment on above: Order Comment: Speci men Type: BLOOD SPECIMENOrdering Facility: [facility] Address: [address] [place], [place] [address] Performed By: #### 2 4323-8, , 2776-06 ####[facility] LABCLIA [id number] [address] [address] [place] Magnesium SerPl-mCncon 12-14 Magnesium [Mass/Vol] 1.9 mg/dL Normal 1.7-2.3 [facility] Comment on above: Order Comment: Speci men Type: BLOOD SPECIMENOrdering Facility: [facility] Address: [address] [place] [address] Performed By: #### 2 4323-8, , 2776-06 ####[facility] LABCLIA [id number] [place] [address] [place] Phosphate SerPl-mCncon 12-14 Phosphate [Mass/Vol] 2.3 mg/dL Low 2.7-4.8 [facility] Comment on above: Order Comment: Speci men Type: BLOOD SPECIMENOrdering Facility: [facility] Address: [address] [place] [address] Performed By: #### 2 4323-8, , 2776-06 ####[facility] LABCLIA [id number] [place] [address] [place] XR ABDOMEN 1V SUPINEon 12-14 XR ABDOMEN 1V SUPINE Normal [facility] CBC W Auto Differential pane l (Bld)on 12-13-2024 Basophils (Bld) [#/Vol] 0.04 10*3/uL Normal <0.11 [facility] Comment on above: Order Comment: Speci men Type: BLOOD SPECIMENOrdering Facility: [facility] Address: [address] [place] [address] Performed By: #### 5 7021-8 ####[facility] LABCLIA [id number] [place] [address] [place] Basophils/100 WBC (Bld) 0.3 % Normal [facility] Comment on above: Order Comment: Speci men Type: BLOOD SPECIMENOrdering Facility: [facility] Address: [address] [place] [address] Performed By: #### 5 7021-8 ####[facility] LABCLIA [id number] [place] [address] [place] Differential cell count method Nom (Bld) Auto Normal [facility] Comment on above: Order Comment: Speci men Type: BLOOD SPECIMENOrdering Facility: [facility] Address: [address] [place] [address] Performed By: #### 5 7021-8 ####[facility] LABCLIA [id number] [place] [address] [place] Eosinophils (Bld) [#/Vol] 10*3/uL Normal <0.46 [facility] Comment on above: Order Comment: Speci men Type: BLOOD SPECIMENOrdering Facility: [facility] Address: [address] [place] [address] Performed By: #### 5 7021-8 ####[facility]IA [id number] [place] [address] [place] Eosinophils/100 WBC (Bld) 0.1 % Normal [facility] Comment on above: Order Comment: Speci men Type: BLOOD SPECIMENOrdering Facility: [facility] Address: [address] [place] [address] Performed By: #### 5 7021-8 ####[facility] LABIA [id number] [place] [address] [place] Erythrocyte distribution width (RBC) [Ratio] 23.1 % High 11.5-15.0 [facility] Comment on above: Order Comment: Speci men Type: BLOOD SPECIMENOrdering Facility: [facility] Address: [address] [place] [address] Performed By: #### 5 7021-8 ####[facility] LABIA [id number] [place] [id number] [place] Hematocrit (Bld) [Volume fraction] 34.3 % Low 36.0-46.0 [facility] Comment on above: Order Comment: Speci men Type: BLOOD SPECIMENOrdering Facility: [facility] Address: [address] [place] [address] Performed By: #### 5 7021-8 ####[facility] LABCLIA [id number] [place] [address] [place] Hemoglobin (Bld) [Mass/Vol] 10.3 g/dL Low 11.5-15.5 [facility] Comment on above: Order Comment: Speci men Type: BLOOD SPECIMENOrdering Facility: [facility] Address: [address] [place] [address] Performed By: #### 5 7021-8 ####[facility]IA [id number] [place] [address] [place] Immature granulocytes (Bld) [#/Vol] 0.12 10*3/uL High <0.10 [facility] Comment on above: Order Comment: Speci men Type: BLOOD SPECIMENOrdering Facility: [facility] Address: [address] [place] [address] Performed By: #### 5 7021-8 ####[facility]IA [id number] [place] [address] [place] Immature granulocytes/100 WBC (Bld) 0.8 % Normal [facility] Comment on above: Order Comment: Speci men Type: BLOOD SPECIMENOrdering Facility: [facility] Address: [address] [place] [address] Performed By: #### 5 7021-8 ####[facility]IA [id number] [place] [address] [place] Lymphocytes (Bld) [#/Vol] 1.27 10*3/uL Normal 1.00-4.00 [facility] Comment on above: Order Comment: Speci men Type: BLOOD SPECIMENOrdering Facility: [facility] Address: [address] [place] [address] Performed By: #### 5 7021-8 ####[facility] LABIA [id number] [place] [address] [place] Lymphocytes/100 WBC (Bld) 8.0 % Normal [facility] Comment on above: Order Comment: Speci men Type: BLOOD SPECIMENOrdering Facility: [facility] Address: [address] [place] [address] Performed By: #### 5 7021-8 ####[facility]IA [id number] [place] [address] [place] MCH (RBC) [Entitic mass] 26.9 pg Normal 26.0-34.0 [facility] Comment on above: Order Comment: Speci men Type: BLOOD SPECIMENOrdering Facility: [facility] Address: [address] [place] [address] Performed By: #### 5 7021-8 ####[facility]IA [id number] [place] [address] [place] MCHC (RBC) [Mass/Vol] 30.0 g/dL Low 30.5-36.0 [facility] Comment on above: Order Comment: Speci men Type: BLOOD SPECIMENOrdering Facility: [facility] Address: [address] [place] [address] Performed By: #### 5 7021-8 ####[facility] [id number] [place] [address] [place] MCV (RBC) [Entitic vol] 89.6 fL Normal 80.0-100.0 [facility] Comment on above: Order Comment: Speci men Type: BLOOD SPECIMENOrdering Facility: [facility] Address: [address] [place] [address] Performed By: #### 5 7021-8 ####[facility]IA [id number] [place] [address] [place] Monocytes (Bld) [#/Vol] 1.51 10*3/uL High <0.87 [facility] Comment on above: Order Comment: Speci men Type: BLOOD SPECIMENOrdering Facility: [facility] Address: [address] [place] [address] Performed By: #### 5 7021-8 ####[facility] LABCLIA [id number] [place] [address] [place] Monocytes/100 WBC (Bld) 9.5 % Normal [facility] Comment on above: Order Comment: Speci men Type: BLOOD SPECIMENOrdering Facility: [facility] Address: [address] [place] [address] Performed By: #### 5 7021-8 ####[facility] LABCLIA [id number] [place] [address] [place] Neutrophils (Bld) [#/Vol] 12.87 10*3/uL High 1.45-7.50 [facility] Comment on above: Order Comment: Speci men Type: BLOOD SPECIMENOrdering Facility: [facility] Address: [address] [place] [address] Performed By: #### 5 7021-8 ####[facility] LABCLIA [id number] [place] [address] [place] Neutrophils/100 WBC (Bld) 81.3 % Normal [facility] Comment on above: Order Comment: Speci men Type: BLOOD SPECIMENOrdering Facility: [facility] Address: [address] [place] [address] Performed By: #### 5 7021-8 ####[facility] LABCLIA [id number] [place] [address] [place] Nucleated RBC (Bld) [#/Vol] 0.02 10*3/uL High <0.01 [facility] Comment on above: Order Comment: Speci men Type: BLOOD SPECIMENOrdering Facility: [facility] Address: [address] [place] [address] Performed By: #### 5 7021-8 ####[facility] LABCLIA [id number] [place] [address] [place] Nucleated RBC/100 WBC (Bld) [Ratio] 0.1 /100 WBC Normal [facility] Comment on above: Order Comment: Speci men Type: BLOOD SPECIMENOrdering Facility: [facility] Address: [address] [place] [address] Performed By: #### 5 7021-8 ####[facility] LABCLIA [id number] [place] [address] [place] Platelet mean volume (Bld) [Entitic vol] 9.7 fL Normal 9.0-12.7 [facility] Comment on above: Order Comment: Speci men Type: BLOOD SPECIMENOrdering Facility: [facility] Address: [address] [place] [address] Performed By: #### 5 7021-8 ####[facility] LABIA [id number] [place] [address] [place] Platelets (Bld) [#/Vol] 274 10*3/uL Normal 150-400 [facility] Comment on above: Order Comment: Speci men Type: BLOOD SPECIMENOrdering Facility: [facility] Address: [address] [place] [address] Performed By: #### 5 7021-8 ####[facility] LABIA [id number] [place] [address] [place] RBC (Bld) [#/Vol] 3.83 10*6/uL Low 3.90-5.20 [facility] Comment on above: Order Comment: Speci men Type: BLOOD SPECIMENOrdering Facility: [facility] Address: [address] [place] [address] Performed By: #### 5 7021-8 ####[facility] LABIA [id number] [place] [address] [place] WBC (Bld) [#/Vol] 15.82 10*3/uL High 3.70-11.00 [facility] Comment on above: Order Comment: Speci men Type: BLOOD SPECIMENOrdering Facility: [facility] Address: [address] [place] [address] Performed By: #### 5 7021-8 ####[facility] LABCLIA [id number] [address] [address] [place] CNPNon 12-13-2024 CNPN Normal [facility] CONSULTon 12-13-2024 CONSULT Normal [facility] CONSULT PROGon 12-13-2024 CONSULT PROG Normal [facility] CONSULT PROG Normal [facility] CRP SerPl-mCncon 12-13-2024 CRP [Mass/Vol] 14.4 mg/dL High <0.9 [facility] Comment on above: Order Comment: Speci men Type: BLOOD SPECIMENOrdering Facility: [facility] Address: [address] [place] [address] Performed By: #### 1 988-5 ####[facility] LABCLIA [id number] [address], [facility] [place] Comprehensive metabolic 2000 panelon 12-13-2024 Albumin [Mass/Vol] 3.8 g/dL Low 3.9-4.9 [facility] Comment on above: Order Comment: Speci men Type: BLOOD SPECIMENOrdering Facility: [facility] Address: [address] [place] [address] Performed By: #### 2 4323-8, , 2776- ####[facility] LABCLIA [id number] [address] [place] [address] [place] ALP [Catalytic activity/Vol] 118 U/L Normal 34-123 [facility] Comment on above: Order Comment: Speci men Type: BLOOD SPECIMENOrdering Facility: [facility] Address: [address] [place] [address] Performed By: #### 2 4323-8, 22967-9, 7- ####[facility] LABCLIA [id number] [address] [place] [address] [place] ALT [Catalytic activity/Vol] 40 U/L High 7-38 [facility] Comment on above: Order Comment: Speci men Type: BLOOD SPECIMENOrdering Facility: [facility] Address: [address] [place], [place] [address] Performed By: #### 2 4323-8, 97825-6, 2776-06 ####[facility] LABCLIA [id number] [facility] [address] [place] [address] [place] Anion gap [Moles/Vol] 14 mmol/L Normal 8-15 [facility] Comment on above: Order Comment: Speci men Type: BLOOD SPECIMENOrdering Facility: [facility] Address: [address] [place] [address] Performed By: #### 2 4323-8, , 2776-06 ####[facility] LABCLIA [id number] [place] [id number] [place] AST [Catalytic activity/Vol] 31 U/L Normal 13-35 [facility] Comment on above: Order Comment: Speci men Type: BLOOD SPECIMENOrdering Facility: [facility] Address: [address] [place] [address] Performed By: #### 2 4323-8, , 2776-06 ####[facility] LABCLIA [id number] [facility] [address], [facility] [place] Bilirubin [Mass/Vol] 1.1 mg/dL Normal 0.2-1.3 [facility] Comment on above: Order Comment: Speci men Type: BLOOD SPECIMENOrdering Facility: [facility] Address: [address] [place], [place] [address] Performed By: #### 2 4323-8, , 2776-06 ####[facility] LABCLIA [id number] [facility] [address] [place] [address] [place] Calcium [Mass/Vol] 9.0 mg/dL Normal 8.5-10.2 [facility] Comment on above: Order Comment: Speci men Type: BLOOD SPECIMENOrdering Facility: [facility] Address: [address] [place], [place] [address] Performed By: #### 2 4323-8, , 2776-06 ####[facility] LABCLIA [id number] [facility] [place] [id number] [address] [place] Chloride [Moles/Vol] 102 mmol/L Normal 98-107 [facility] Comment on above: Order Comment: Speci men Type: BLOOD SPECIMENOrdering Facility: [facility] Address: [address] [place], [place] [address] Performed By: #### 2 4323-8, , 2776-06 ####[facility] LABCLIA [id number] [address] [address] [place] CO2 [Moles/Vol] 21 mmol/L Low 22-30 [facility] Comment on above: Order Comment: Speci men Type: BLOOD SPECIMENOrdering Facility: [facility] Address: [address] [place], [place] [address] Performed By: #### 2 4323-8, , 2776-06 ####[facility] LABCLIA [id number] [address] [place] [address] [place] Creatinine [Mass/Vol] 0.74 mg/dL Normal 0.58-0.96 [facility] Comment on above: Order Comment: Speci men Type: BLOOD SPECIMENOrdering Facility: [facility] Address: [address] [place] [address] Performed By: #### 2 4323-8, , 2776-06 ####[facility] LABCLIA [id number] [facility] [address] [place] [address] [place] Creatinine and Glomerular filtration rate.predicted panel (S/P/Bld) 104 mL/min/1.73m??? Normal >=60 [facility] Comment on above: Order Comment: Speci men Type: BLOOD SPECIMENOrdering Facility: [facility] Address: [address] [place] [address] Result Comment: Zeny mated Glomerular Filtration Rate [...] actual GFR. Performed By: #### 2 4323-8, 41086-8, 2776-06 ####[facility] LABIA [id number] [place] [id number] [place] Glucose [Mass/Vol] 124 mg/dL High 74-99 [facility] Comment on above: Order Comment: Dora finch Type: BLOOD SPECIMENOrdering Facility: [facility] Address: [address] [place] [address] Result Comment: The [place] (ADA) provides guidance for cutoff [...] Standards of Medical Care in Diabetes 2016, [place]. Diabetes Care. 2016.39(Suppl 1). Performed By: #### 2 4323-8, 92993-6, 2776-06 ####[facility] LABIA [id number] [place] [id number] [place] Potassium [Moles/Vol] 4.5 mmol/L Normal 3.7-5.1 [facility] Comment on above: Order Comment: Dora finch Type: BLOOD SPECIMENOrdering Facility: [facility] Address: [address] [place] [address] Performed By: #### 2 4323-8, 86297-7, 2776-06 ####[facility] LABIA [id number] [place] [address] [place] Protein [Mass/Vol] 6.5 g/dL Normal 6.3-8.0 [facility] Comment on above: Order Comment: Speci men Type: BLOOD SPECIMENOrdering Facility: [facility] Address: [address] [place] [address] Performed By: #### 2 4323-8, 04400-5, 2776-06 ####[facility] LABIA [id number] [place] [id number] [place] Sodium [Moles/Vol] 137 mmol/L Normal 136-144 [facility] Comment on above: Order Comment: Speci men Type: BLOOD SPECIMENOrdering Facility: [facility] Address: [address] [place] [address] Performed By: #### 2 4323-8, 57888-7, 2776-06 ####[facility] LABIA [id number] [place] [id number] [place] Urea nitrogen [Mass/Vol] 11 mg/dL Normal 7-21 [facility] Comment on above: Order Comment: Speci men Type: BLOOD SPECIMENOrdering Facility: [facility] Address: [address] [place] [address] Performed By: #### 2 4323-8, 70976-6, 2776-06 ####[facility] LABIA [id number] [address] [address] [place] Magnesium SerPl-mCncon 12-13 Magnesium [Mass/Vol] 1.6 mg/dL Low 1.7-2.3 [facility] Comment on above: Order Comment: Speci men Type: BLOOD SPECIMENOrdering Facility: [facility] Address: [address] [place], [place] [address] Performed By: #### 2 4323-8, 63261-7, 2777-1 ####[facility] LABCLIA [id number] [place] [id number] [place] Phosphate SerPl-mCncon 12-13 Phosphate [Mass/Vol] 3.8 mg/dL Normal 2.7-4.8 [facility] Comment on above: Order Comment: Speci men Type: BLOOD SPECIMENOrdering Facility: [facility] Address: [address] [place] [address] Performed By: #### 2 4323-8, 91941-5, 2777-1 ####[facility] LABIA [id number] [place] [address] [place] ANES POSTPROC EVALon 025 ANES POSTPROC EVAL Normal [facility] ANES PRE-OPon 12-12-2024 ANES PRE-OP Normal [facility] ARTERIAL BLOOD GASESon 12-12 Base deficit (BldA) [Moles/Vol] -6 mmol/L Low -2-0 [facility] Comment on above: Order Comment: Speci men Type: ARTERIAL BLOOD SPECIMENOrdering Facility: [facility] Address: [address] [place] [address] Performed By: #### A LLBG ####[facility] LABIA [id number] [place] [id number] [place] Body temperature 97.34 [degF] Normal [facility] Comment on above: Order Comment: Speci men Type: ARTERIAL BLOOD SPECIMENOrdering Facility: [facility] Address: [address] [place] [address] Performed By: #### A LLBG ####[facility] LABCLIA [id number] [place] [id number] [place] Calcium.ionized (Bld) [Mass/Vol] 1.19 mmol/L Normal 1.08-1.30 [facility] Comment on above: Order Comment: Speci men Type: ARTERIAL BLOOD SPECIMENOrdering Facility: [facility] Address: [address] [place] [address] Performed By: #### A LLBG ####[facility] LABCLIA [id number] [place] [address] [place] Calcium.ionized adjusted to pH 7.4 (BldA) [Moles/Vol] 1.15 mmol/L Normal 1.08-1.30 [facility] Comment on above: Order Comment: Speci men Type: ARTERIAL BLOOD SPECIMENOrdering Facility: [facility] Address: [address] [place] [address] Performed By: #### A LLBG ####[facility] LABCLIA [id number] [place] [address] [place] Carboxyhemoglobin (BldA) [Mass fraction] 1.6 % Normal 0.0-2.0 [facility] Comment on above: Order Comment: Speci men Type: ARTERIAL BLOOD SPECIMENOrdering Facility: [facility] Address: [address] [place] [address] Result Comment: Carb oxyhemoglobin Reference Range for Smokers: 2.0-8.0% Performed By: #### A LLBG ####[facility] LABCLIA [id number] [place] [address] [place] CO2 (Bld) [Partial pressure] 38 mm Hg Normal 36-46 [facility] Comment on above: Order Comment: Speci men Type: ARTERIAL BLOOD SPECIMENOrdering Facility: [facility] Address: [address] [place] [address] Performed By: #### A LLBG ####[facility] LABCLIA [id number] [place] [id number] [place] CO2 adjusted to patient's actual temperature (Bld) [Partial pressure] 36 mmHg Normal 36-46 [facility] Comment on above: Order Comment: Speci men Type: ARTERIAL BLOOD SPECIMENOrdering Facility: [facility] Address: [address] [place] [address] Performed By: #### A LLBG ####[facility] LABCLIA [id number] [place] [address] [place] Glucose [Mass/Vol] 178 mg/dL High 60-105 [facility] Comment on above: Order Comment: Speci men Type: ARTERIAL BLOOD SPECIMENOrdering Facility: [facility] Address: [address] [place] [address] Performed By: #### A LLBG ####[facility] LABCLIA [id number] [place] [address] [place] HCO3 (Bld) [Moles/Vol] 19 mmol/L Low 22-26 [facility] Comment on above: Order Comment: Speci men Type: ARTERIAL BLOOD SPECIMENOrdering Facility: [facility] Address: [address] [place] [address] Performed By: #### A LLBG ####[facility] LABCLIA [id number] [place] [address] [place] Hematocrit (Bld) [Volume fraction] 27.9 % Low 36.0-46.0 [facility] Comment on above: Order Comment: Speci men Type: ARTERIAL BLOOD SPECIMENOrdering Facility: [facility] Address: [address] [place] [address] Performed By: #### A LLBG ####[facility] LABCLIA [id number] [place] [id number] [place] Hemoglobin (Bld) [Mass/Vol] 9.0 g/dL Low 11.5-15.5 [facility] Comment on above: Order Comment: Speci men Type: ARTERIAL BLOOD SPECIMENOrdering Facility: [facility] Address: [address] [place] [address] Performed By: #### A LLBG ####[facility] LABCLIA [id number] [place] [id number] [place] Lactate [Moles/Vol] 5.1 mmol/L High 0.5-2.2 [facility] Comment on above: Order Comment: Speci men Type: ARTERIAL BLOOD SPECIMENOrdering Facility: [facility] Address: [address] [place] [address] Performed By: #### A LLBG ####[facility] LABCLIA [id number] [place] [address] [place] LITERS 2 Liters/min Normal [facility] Comment on above: Order Comment: Speci men Type: ARTERIAL BLOOD SPECIMENOrdering Facility: [facility] Address: [address] [place] [address] Performed By: #### A LLBG ####[facility] LABCLIA [id number] [place] [address] [place] Methemoglobin (Bld) [Mass fraction] 1.0 % Normal 0.0-1.5 [facility] Comment on above: Order Comment: Speci men Type: ARTERIAL BLOOD SPECIMENOrdering Facility: [facility] Address: [address] [place] [address] Performed By: #### A LLBG ####[facility] LABCLIA [id number] [place] [address] [place] O2 THERAPY NC = Nasal Cannula Normal [facility] Comment on above: Order Comment: Speci men Type: ARTERIAL BLOOD SPECIMENOrdering Facility: [facility] Address: [address] [place] [address] Performed By: #### A LLBG ####[facility] LABCLIA [id number] [place] [id number] [place] Oxygen (Bld) [Partial pressure] 110 mm Hg High 85-95 [facility] Comment on above: Order Comment: Speci men Type: ARTERIAL BLOOD SPECIMENOrdering Facility: [facility] Address: [address] [place] [address] Performed By: #### A LLBG ####[facility] LABCLIA [id number] [place] [address] [place] Oxygen adjusted to patient's actual temperature (Bld) [Partial pressure] 106 mmHg High 85-95 [facility] Comment on above: Order Comment: Speci men Type: ARTERIAL BLOOD SPECIMENOrdering Facility: [facility] Address: [address] [place] [address] Performed By: #### A LLBG ####[facility] LABIA [id number] [place] [address] [place] Oxyhemoglobin (BldA) [Mass fraction] 96 % Normal 95-98 [facility] Comment on above: Order Comment: Speci men Type: ARTERIAL BLOOD SPECIMENOrdering Facility: [facility] Address: [address] [place] [address] Performed By: #### A LLBG ####[facility] LABIA [id number] [place] [address] [place] pH (Bld) 7.33 [pH] Low 7.35-7.45 [facility] Comment on above: Order Comment: Speci men Type: ARTERIAL BLOOD SPECIMENOrdering Facility: [facility] Address: [address] [place] [address] Performed By: #### A LLBG ####[facility] LABIA [id number] [place] [address] [place] pH adjusted to patient's actual temperature (Bld) 7.34 Low 7.35-7.45 [facility] Comment on above: Order Comment: Speci men Type: ARTERIAL BLOOD SPECIMENOrdering Facility: [facility] Address: [address] [place] [address] Performed By: #### A LLBG ####[facility] LABIA [id number] [place] [id number] [place] Potassium [Moles/Vol] 4.3 mmol/L Normal 3.5-5.0 [facility] Comment on above: Order Comment: Speci men Type: ARTERIAL BLOOD SPECIMENOrdering Facility: [facility] Address: [facility] [place] [address] Performed By: #### A LLBG ####[facility] LABCLIA [id number] [place] [address] [place] Sodium [Moles/Vol] 139 mmol/L Normal 136-144 [facility] Comment on above: Order Comment: Speci men Type: ARTERIAL BLOOD SPECIMENOrdering Facility: [facility] Address: [address] [place] [address] Performed By: #### A LLBG ####[facility] LABCLIA [id number] [place] [address] [place] Base deficit (BldA) [Moles/Vol] -7 mmol/L Low -2-0 [facility] Comment on above: Order Comment: Speci men Type: ARTERIAL BLOOD SPECIMENOrdering Facility: [facility] Address: [address] [place] [address] Performed By: #### A LLBG ####[facility] LABCLIA [id number] [place] [address] [place] Body temperature 97.52 [degF] Normal [facility] Comment on above: Order Comment: Speci men Type: ARTERIAL BLOOD SPECIMENOrdering Facility: [facility] Address: [address] [place] [address] Performed By: #### A LLBG ####[facility] LABCLIA [id number] [place] [address] [place] Calcium.ionized (Bld) [Mass/Vol] 1.17 mmol/L Normal 1.08-1.30 [facility] Comment on above: Order Comment: Speci men Type: ARTERIAL BLOOD SPECIMENOrdering Facility: [facility] Address: [address] [place] [address] Performed By: #### A LLBG ####[facility] LABCLIA [id number] [place] [address] [place] Calcium.ionized adjusted to pH 7.4 (BldA) [Moles/Vol] 1.13 mmol/L Normal 1.08-1.30 [facility] Comment on above: Order Comment: Speci men Type: ARTERIAL BLOOD SPECIMENOrdering Facility: [facility] Address: [address] [place] [address] Performed By: #### A LLBG ####[facility] LABCLIA [id number] [place] [address] [place] Carboxyhemoglobin (BldA) [Mass fraction] 1.6 % Normal 0.0-2.0 [facility] Comment on above: Order Comment: Speci men Type: ARTERIAL BLOOD SPECIMENOrdering Facility: [facility] Address: [address] [place] [address] Result Comment: Carb oxyhemoglobin Reference Range for Smokers: 2.0-8.0% Performed By: #### A LLBG ####[facility] LABCLIA [id number] [place] [address] [place] CO2 (Bld) [Partial pressure] 33 mm Hg Low 36-46 [facility] Comment on above: Order Comment: Speci men Type: ARTERIAL BLOOD SPECIMENOrdering Facility: [facility] Address: [address] [place] [address] Performed By: #### A LLBG ####[facility] LABCLIA [id number] [place] [id number] [place] CO2 adjusted to patient's actual temperature (Bld) [Partial pressure] 32 mmHg Low 36-46 [facility] Comment on above: Order Comment: Speci men Type: ARTERIAL BLOOD SPECIMENOrdering Facility: [facility] Address: [address] [place] [address] Performed By: #### A LLBG ####[facility] LABCLIA [id number] [address] [place] [address] [place] Glucose [Mass/Vol] 206 mg/dL High 60-105 [facility] Comment on above: Order Comment: Speci men Type: ARTERIAL BLOOD SPECIMENOrdering Facility: [facility] Address: [address] [place] [address] Performed By: #### A LLBG ####[facility] LABCLIA [id number] [place] [address] [place] HCO3 (Bld) [Moles/Vol] 17 mmol/L Low 22-26 [facility] Comment on above: Order Comment: Speci men Type: ARTERIAL BLOOD SPECIMENOrdering Facility: [facility] Address: [address] [place] [address] Performed By: #### A LLBG ####[facility] LABCLIA [id number] [place] [address] [place] Hematocrit (Bld) [Volume fraction] 27.6 % Low 36.0-46.0 [facility] Comment on above: Order Comment: Speci men Type: ARTERIAL BLOOD SPECIMENOrdering Facility: [facility] Address: [address] [place] [address] Performed By: #### A LLBG ####[facility] LABCLIA [id number] [place] [id number] [place] Hemoglobin (Bld) [Mass/Vol] 8.9 g/dL Low 11.5-15.5 [facility] Comment on above: Order Comment: Speci men Type: ARTERIAL BLOOD SPECIMENOrdering Facility: [facility] Address: [address] [place] [address] Performed By: #### A LLBG ####[facility] LABCLIA [id number] [place] [id number] [place] Lactate [Moles/Vol] 5.8 mmol/L High 0.5-2.2 [facility] Comment on above: Order Comment: Speci men Type: ARTERIAL BLOOD SPECIMENOrdering Facility: [facility] Address: [address] [id number] Performed By: #### A LLBG ####[facility] LABCLIA [id number] [address] [address] [place] LITERS 2 Liters/min Normal [facility] Comment on above: Order Comment: Speci men Type: ARTERIAL BLOOD SPECIMENOrdering Facility: [facility] Address: [address] [place] [address] Performed By: #### A LLBG ####[facility] LABCLIA [id number] [place] [id number] [place] Methemoglobin (Bld) [Mass fraction] 0.7 % Normal 0.0-1.5 [facility] Comment on above: Order Comment: Speci men Type: ARTERIAL BLOOD SPECIMENOrdering Facility: [facility] Address: [address] [place] [address] Performed By: #### A LLBG ####[facility] LABCLIA [id number] [place] [id number] [place] O2 THERAPY NC = Nasal Cannula Normal [facility] Comment on above: Order Comment: Speci men Type: ARTERIAL BLOOD SPECIMENOrdering Facility: [facility] Address: [address] [place], [place] [id number] Performed By: #### A LLBG ####[facility] LABCLIA [id number] [place] [id number] [place] Oxygen (Bld) [Partial pressure] 127 mm Hg High 85-95 [facility] Comment on above: Order Comment: Speci men Type: ARTERIAL BLOOD SPECIMENOrdering Facility: [facility] Address: [address] [place] [address] Performed By: #### A LLBG ####[facility] LABCLIA [id number] [address] [address] [place] Oxygen adjusted to patient's actual temperature (Bld) [Partial pressure] 124 mmHg High 85-95 [facility] Comment on above: Order Comment: Speci men Type: ARTERIAL BLOOD SPECIMENOrdering Facility: [facility] Address: [address] [place] [address] Performed By: #### A LLBG ####[facility] LABCLIA [id number] [address] [address] [place] Oxyhemoglobin (BldA) [Mass fraction] 97 % Normal 95-98 [facility] Comment on above: Order Comment: Speci men Type: ARTERIAL BLOOD SPECIMENOrdering Facility: [facility] Address: [address] [place] [address] Performed By: #### A LLBG ####[facility] LABCLIA [id number] [address] [address] [place] pH (Bld) 7.33 [pH] Low 7.35-7.45 [facility] Comment on above: Order Comment: Speci men Type: ARTERIAL BLOOD SPECIMENOrdering Facility: [facility] Address: [address] [place] [address] Performed By: #### A LLBG ####[facility] LABCLIA [id number] [place] [id number] [place] pH adjusted to patient's actual temperature (Bld) 7.34 Low 7.35-7.45 [facility] Comment on above: Order Comment: Speci men Type: ARTERIAL BLOOD SPECIMENOrdering Facility: [facility] Address: [address] [place] [address] Performed By: #### A LLBG ####[facility] LABIA [id number] [place] [id number] [place] Potassium [Moles/Vol] 4.1 mmol/L Normal 3.5-5.0 [facility] Comment on above: Order Comment: Speci men Type: ARTERIAL BLOOD SPECIMENOrdering Facility: [facility] Address: [address] [place] [address] Performed By: #### A LLBG ####[facility] LABCLIA [id number] [place] [address] [place] Sodium [Moles/Vol] 140 mmol/L Normal 136-144 [facility] Comment on above: Order Comment: Speci men Type: ARTERIAL BLOOD SPECIMENOrdering Facility: [facility] Address: [address] [place] [address] Performed By: #### A LLBG ####[facility] LABCLIA [id number] [place] [address] [place] ARTERIAL BLOOD GASES WITH IO NIZED MAGNESIUMon 12-12-2024 Base deficit (BldA) [Moles/Vol] -4 mmol/L Low -2-0 [facility] Comment on above: Order Comment: Speci men Type: ARTERIAL BLOOD SPECIMENOrdering Facility: [facility] Address: [address] [place] [address] Performed By: #### A LLMG ####[facility] LABCLIA [id number] [place] [address] [place] Calcium.ionized (Bld) [Mass/Vol] 1.14 mmol/L Normal 1.08-1.30 [facility] Comment on above: Order Comment: Speci men Type: ARTERIAL BLOOD SPECIMENOrdering Facility: [facility] Address: [address] [place] [address] Performed By: #### A LLMG ####[facility] LABCLIA [id number] [place] [address] [place] Calcium.ionized adjusted to pH 7.4 (BldA) [Moles/Vol] 1.12 mmol/L Normal 1.08-1.30 [facility] Comment on above: Order Comment: Speci men Type: ARTERIAL BLOOD SPECIMENOrdering Facility: [facility] Address: [address] [place] [address] Performed By: #### A LLMG ####[facility] LABCLIA [id number] [place] [address] [place] Carboxyhemoglobin (BldA) [Mass fraction] 2.0 % Normal 0.0-2.0 [facility] Comment on above: Order Comment: Speci men Type: ARTERIAL BLOOD SPECIMENOrdering Facility: [facility] Address: [address] [place] [address] Result Comment: Carb oxyhemoglobin Reference Range for Smokers: 2.0-8.0% Performed By: #### A LLMG ####[facility] LABIA [id number] [place] [address] [place] CO2 (Bld) [Partial pressure] 37 mm Hg Normal 36-46 [facility] Comment on above: Order Comment: Speci men Type: ARTERIAL BLOOD SPECIMENOrdering Facility: [facility] Address: [address] [place] [address] Performed By: #### A LLMG ####[facility] LABIA [id number] [place] [address] [place] CO2 adjusted to patient's actual temperature (Bld) [Partial pressure] 37 mmHg Normal 36-46 [facility] Comment on above: Order Comment: Speci men Type: ARTERIAL BLOOD SPECIMENOrdering Facility: [facility] Address: [address] [place] [address] Performed By: #### A LLMG ####[facility] LABIA [id number] [place] [address] [place] Glucose [Mass/Vol] 148 mg/dL High 60-105 [facility] Comment on above: Order Comment: Speci men Type: ARTERIAL BLOOD SPECIMENOrdering Facility: [facility] Address: [address] [place] [address] Performed By: #### A LLMG ####[facility] LABIA [id number] [place] [address] [place] HCO3 (Bld) [Moles/Vol] 20 mmol/L Low 22-26 [facility] Comment on above: Order Comment: Speci men Type: ARTERIAL BLOOD SPECIMENOrdering Facility: [facility] Address: [address] [place] [address] Performed By: #### A LLMG ####[facility] LABIA [id number] [place] [address] [place] Hematocrit (Bld) [Volume fraction] 24.9 % Low 36.0-46.0 [facility] Comment on above: Order Comment: Speci men Type: ARTERIAL BLOOD SPECIMENOrdering Facility: [facility] Address: [address] [place] [address] Performed By: #### A LLMG ####[facility] LABIA [id number] [place] [address] [place] Hemoglobin (Bld) [Mass/Vol] 8.0 g/dL Low 11.5-15.5 [facility] Comment on above: Order Comment: Speci men Type: ARTERIAL BLOOD SPECIMENOrdering Facility: [facility] Address: [address] [place] [address] Performed By: #### A LLMG ####[facility] LABIA [id number] [place] [address] [place] Lactate [Moles/Vol] 3.0 mmol/L High 0.5-2.2 [facility] Comment on above: Order Comment: Speci men Type: ARTERIAL BLOOD SPECIMENOrdering Facility: [facility] Address: [address] [place] [address] Performed By: #### A LLMG ####[facility] LABIA [id number] [place] [address] [place] Magnesium [Moles/Vol] 0.55 mmol/L Normal 0.45-0.60 [facility] Comment on above: Order Comment: Speci men Type: ARTERIAL BLOOD SPECIMENOrdering Facility: [facility] Address: [address] [place] [address] Performed By: #### A LLMG ####[facility] LABCLIA [id number] [place] [address] [place] Methemoglobin (Bld) [Mass fraction] 1.2 % Normal 0.0-1.5 [facility] Comment on above: Order Comment: Speci men Type: ARTERIAL BLOOD SPECIMENOrdering Facility: [facility] Address: [address] [place] [address] Performed By: #### A LLMG ####[facility] LABCLIA [id number] [address] [id number] [place] Oxygen (Bld) [Partial pressure] 144 mm Hg High 85-95 [facility] Comment on above: Order Comment: Speci men Type: ARTERIAL BLOOD SPECIMENOrdering Facility: [facility] Address: [address] [place] [address] Performed By: #### A LLMG ####[facility] LABCLIA [id number] [place] [address] [place] Oxygen adjusted to patient's actual temperature (Bld) [Partial pressure] 144 mmHg High 85-95 [facility] Comment on above: Order Comment: Speci men Type: ARTERIAL BLOOD SPECIMENOrdering Facility: [facility] Address: [address] [place] [address] Performed By: #### A LLMG ####[facility] LABCLIA [id number] [address] [id number] [place] Oxyhemoglobin (BldA) [Mass fraction] 96 % Normal 95-98 [facility] Comment on above: Order Comment: Speci men Type: ARTERIAL BLOOD SPECIMENOrdering Facility: [facility] Address: [address] [place] [address] Performed By: #### A LLMG ####[facility] LABCLIA [id number] [address] [id number] [place] pH (Bld) 7.36 [pH] Normal 7.35-7.45 [facility] Comment on above: Order Comment: Speci men Type: ARTERIAL BLOOD SPECIMENOrdering Facility: [facility] Address: [address] [place] [address] Performed By: #### A LLMG ####[facility] LABCLIA [id number] [address] [place] [address] [place] pH adjusted to patient's actual temperature (Bld) 7.36 Normal 7.35-7.45 [facility] Comment on above: Order Comment: Speci men Type: ARTERIAL BLOOD SPECIMENOrdering Facility: [facility] Address: [address] [place] [address] Performed By: #### A LLMG ####[facility] LABIA [id number] [address] [place] [id number] [place] Potassium [Moles/Vol] 4.3 mmol/L Normal 3.5-5.0 [facility] Comment on above: Order Comment: Speci men Type: ARTERIAL BLOOD SPECIMENOrdering Facility: [facility] Address: [address] [place] [address] Performed By: #### A LLMG ####[facility] LABIA [id number] [address] [place] [id number] [place] Sodium [Moles/Vol] 140 mmol/L Normal 136-144 [facility] Comment on above: Order Comment: Speci men Type: ARTERIAL BLOOD SPECIMENOrdering Facility: [facility] Address: [address] [place] [address] Performed By: #### A LLMG ####[facility] LABIA [id number] [address] [id number] [place] Base deficit (BldA) [Moles/Vol] -4 mmol/L Low -2-0 [facility] Comment on above: Order Comment: Speci men Type: ARTERIAL BLOOD SPECIMENOrdering Facility: [facility] Address: [address] [place] [address] Performed By: #### A LLMG ####[facility] LABIA [id number] [place] [address] [place] Calcium.ionized (Bld) [Mass/Vol] 1.12 mmol/L Normal 1.08-1.30 [facility] Comment on above: Order Comment: Speci men Type: ARTERIAL BLOOD SPECIMENOrdering Facility: [facility] Address: [address] [place] [address] Performed By: #### A LLMG ####[facility] [id number] [place] [address] [place] Calcium.ionized adjusted to pH 7.4 (BldA) [Moles/Vol] 1.10 mmol/L Normal 1.08-1.30 [facility] Comment on above: Order Comment: Speci men Type: ARTERIAL BLOOD SPECIMENOrdering Facility: [facility] Address: [address] [place] [address] Performed By: #### A LLMG ####[facility] [id number] [place] [address] [place] Carboxyhemoglobin (BldA) [Mass fraction] 2.0 % Normal 0.0-2.0 [facility] Comment on above: Order Comment: Speci men Type: ARTERIAL BLOOD SPECIMENOrdering Facility: [facility] Address: [address] [place] [address] Result Comment: Carb oxyhemoglobin Reference Range for Smokers: 2.0-8.0% Performed By: #### A LLMG ####[facility] [id number] [place] [address] [place] CO2 (Bld) [Partial pressure] 37 mm Hg Normal 36-46 [facility] Comment on above: Order Comment: Speci men Type: ARTERIAL BLOOD SPECIMENOrdering Facility: [facility] Address: [address] [place] [address] Performed By: #### A LLMG ####[facility] LABCLIA [id number] [address] [id number] [place] CO2 adjusted to patient's actual temperature (Bld) [Partial pressure] 37 mmHg Normal 36-46 [facility] Comment on above: Order Comment: Speci men Type: ARTERIAL BLOOD SPECIMENOrdering Facility: [facility] Address: [address] [place] [address] Performed By: #### A LLMG ####[facility] LABCLIA [id number] [place] [address] [place] Glucose [Mass/Vol] 145 mg/dL High 60-105 [facility] Comment on above: Order Comment: Speci men Type: ARTERIAL BLOOD SPECIMENOrdering Facility: [facility] Address: [address] [place] [address] Performed By: #### A LLMG ####[facility] LABCLIA [id number] [place] [address] [place] HCO3 (Bld) [Moles/Vol] 21 mmol/L Low 22-26 [facility] Comment on above: Order Comment: Speci men Type: ARTERIAL BLOOD SPECIMENOrdering Facility: [facility] Address: [address] [place] [address] Performed By: #### A LLMG ####[facility] LABCLIA [id number] [place] [id number] [place] Hematocrit (Bld) [Volume fraction] 24.5 % Low 36.0-46.0 [facility] Comment on above: Order Comment: Speci men Type: ARTERIAL BLOOD SPECIMENOrdering Facility: [facility] Address: [address] [place] [address] Performed By: #### A LLMG ####[facility] LABCLIA [id number] [address], [facility] [place] Hemoglobin (Bld) [Mass/Vol] 7.9 g/dL Low 11.5-15.5 [facility] Comment on above: Order Comment: Speci men Type: ARTERIAL BLOOD SPECIMENOrdering Facility: [facility] Address: [address] [place] [address] Performed By: #### A LLMG ####[facility] LABCLIA [id number] [place] [id number] [place] Lactate [Moles/Vol] 3.0 mmol/L High 0.5-2.2 [facility] Comment on above: Order Comment: Speci men Type: ARTERIAL BLOOD SPECIMENOrdering Facility: [facility] Address: [address] [place] [address] Performed By: #### A LLMG ####[facility] LABIA [id number] [place] [address] [place] Magnesium [Moles/Vol] 0.55 mmol/L Normal 0.45-0.60 [facility] Comment on above: Order Comment: Speci men Type: ARTERIAL BLOOD SPECIMENOrdering Facility: [facility] Address: [address] [place] [address] Performed By: #### A LLMG ####[facility] LABIA [id number] [place] [address] [place] Methemoglobin (Bld) [Mass fraction] 0.7 % Normal 0.0-1.5 [facility] Comment on above: Order Comment: Speci men Type: ARTERIAL BLOOD SPECIMENOrdering Facility: [facility] Address: [address] [place] [address] Performed By: #### A LLMG ####[facility] LABIA [id number] [place] [id number] [place] Oxygen (Bld) [Partial pressure] 183 mm Hg High 85-95 [facility] Comment on above: Order Comment: Speci men Type: ARTERIAL BLOOD SPECIMENOrdering Facility: [facility] Address: [address] [place], [place] [id number] Performed By: #### A LLMG ####[facility] LABCLIA [id number] [address] [address] [place] Oxygen adjusted to patient's actual temperature (Bld) [Partial pressure] 183 mmHg High 85-95 [facility] Comment on above: Order Comment: Speci men Type: ARTERIAL BLOOD SPECIMENOrdering Facility: [facility] Address: [address] [place] [address] Performed By: #### A LLMG ####[facility] LABCLIA [id number] [place] [id number] [place] Oxyhemoglobin (BldA) [Mass fraction] 97 % Normal 95-98 [facility] Comment on above: Order Comment: Speci men Type: ARTERIAL BLOOD SPECIMENOrdering Facility: [facility] Address: [address] [place] [address] Performed By: #### A LLMG ####[facility] LABIA [id number] [place] [address] [place] pH (Bld) 7.36 [pH] Normal 7.35-7.45 [facility] Comment on above: Order Comment: Speci men Type: ARTERIAL BLOOD SPECIMENOrdering Facility: [facility] Address: [address] [place] [address] Performed By: #### A LLMG ####[facility] LABCLIA [id number] [place] [address] [place] pH adjusted to patient's actual temperature (Bld) 7.36 Normal 7.35-7.45 [facility] Comment on above: Order Comment: Speci men Type: ARTERIAL BLOOD SPECIMENOrdering Facility: [facility] Address: [address] [place] [address] Performed By: #### A LLMG ####[facility] LABCLIA [id number] [place] [id number] [place] Potassium [Moles/Vol] 4.3 mmol/L Normal 3.5-5.0 [facility] Comment on above: Order Comment: Speci men Type: ARTERIAL BLOOD SPECIMENOrdering Facility: [facility] Address: [address] [place] [address] Performed By: #### A LLMG ####[facility] LABIA [id number] [place] [address] [place] Sodium [Moles/Vol] 139 mmol/L Normal 136-144 [facility] Comment on above: Order Comment: Speci men Type: ARTERIAL BLOOD SPECIMENOrdering Facility: [facility] Address: [address] [place] [address] Performed By: #### A LLMG ####[facility] LABIA [id number] [place] [address] [place] Base deficit (BldA) [Moles/Vol] -5 mmol/L Low -2-0 [facility] Comment on above: Order Comment: Speci men Type: ARTERIAL BLOOD SPECIMENOrdering Facility: [facility] Address: [address] [place] [address] Performed By: #### A LLMG ####[facility] LABIA [id number] [place] [address] [place] Calcium.ionized (Bld) [Mass/Vol] 1.20 mmol/L Normal 1.08-1.30 [facility] Comment on above: Order Comment: Speci men Type: ARTERIAL BLOOD SPECIMENOrdering Facility: [facility] Address: [address] [place] [address] Performed By: #### A LLMG ####[facility] LABIA [id number] [place] [address] [place] Calcium.ionized adjusted to pH 7.4 (BldA) [Moles/Vol] 1.17 mmol/L Normal 1.08-1.30 [facility] Comment on above: Order Comment: Speci men Type: ARTERIAL BLOOD SPECIMENOrdering Facility: [facility] Address: [address] [place] [address] Performed By: #### A LLMG ####[facility] LABCLIA [id number] [place] [address] [place] Carboxyhemoglobin (BldA) [Mass fraction] 2.1 % High 0.0-2.0 [facility] Comment on above: Order Comment: Speci men Type: ARTERIAL BLOOD SPECIMENOrdering Facility: [facility] Address: [address] [place] [address] Result Comment: Carb oxyhemoglobin Reference Range for Smokers: 2.0-8.0% Performed By: #### A LLMG ####[facility] LABCLIA [id number] [place] [address] [place] CO2 (Bld) [Partial pressure] 37 mm Hg Normal 36-46 [facility] Comment on above: Order Comment: Speci men Type: ARTERIAL BLOOD SPECIMENOrdering Facility: [facility] Address: [address] [place] [address] Performed By: #### A LLMG ####[facility] LABCLIA [id number] [address] [place] CO2 adjusted to patient's actual temperature (Bld) [Partial pressure] 37 mmHg Normal 36-46 [facility] Comment on above: Order Comment: Speci men Type: ARTERIAL BLOOD SPECIMENOrdering Facility: [facility] Address: [address] [place] [address] Performed By: #### A LLMG ####[facility] LABCLIA [id number] [place] [id number] [place] Glucose [Mass/Vol] 149 mg/dL High 60-105 [facility] Comment on above: Order Comment: Speci men Type: ARTERIAL BLOOD SPECIMENOrdering Facility: [facility] Address: [address] [place] [address] Performed By: #### A LLMG ####[facility] LABCLIA [id number] [place] [id number] [place] HCO3 (Bld) [Moles/Vol] 19 mmol/L Low 22-26 [facility] Comment on above: Order Comment: Speci men Type: ARTERIAL BLOOD SPECIMENOrdering Facility: [facility] Address: [address] [place] [address] Performed By: #### A LLMG ####[facility] LABCLIA [id number] [place] [address] [place] Hematocrit (Bld) [Volume fraction] 27.8 % Low 36.0-46.0 [facility] Comment on above: Order Comment: Speci men Type: ARTERIAL BLOOD SPECIMENOrdering Facility: [facility] Address: [address] [place] [address] Performed By: #### A LLMG ####[facility] LABIA [id number] [place] [address] [place] Hemoglobin (Bld) [Mass/Vol] 9.0 g/dL Low 11.5-15.5 [facility] Comment on above: Order Comment: Speci men Type: ARTERIAL BLOOD SPECIMENOrdering Facility: [facility] Address: [address] [place] [address] Performed By: #### A LLMG ####[facility] LABCLIA [id number] [place] [address] [place] Lactate [Moles/Vol] 3.3 mmol/L High 0.5-2.2 [facility] Comment on above: Order Comment: Speci men Type: ARTERIAL BLOOD SPECIMENOrdering Facility: [facility] Address: [address] [place] [address] Performed By: #### A LLMG ####[facility] LABCLIA [id number] [place] [address] [place] Magnesium [Moles/Vol] 0.63 mmol/L High 0.45-0.60 [facility] Comment on above: Order Comment: Speci men Type: ARTERIAL BLOOD SPECIMENOrdering Facility: [facility] Address: [address] [place], [place] [id number] Performed By: #### A LLMG ####[facility] LABCLIA [id number] [place] [id number] [place] Methemoglobin (Bld) [Mass fraction] 0.4 % Normal 0.0-1.5 [facility] Comment on above: Order Comment: Speci men Type: ARTERIAL BLOOD SPECIMENOrdering Facility: [facility] Address: [address] [place], [place] [id number] Performed By: #### A LLMG ####[facility] LABCLIA [id number] [place] [id number] [place] Oxygen (Bld) [Partial pressure] 185 mm Hg High 85-95 [facility] Comment on above: Order Comment: Speci men Type: ARTERIAL BLOOD SPECIMENOrdering Facility: [facility] Address: [address] [place] [address] Performed By: #### A LLMG ####[facility] LABCLIA [id number] [place] [id number] [place] Oxygen adjusted to patient's actual temperature (Bld) [Partial pressure] 185 mmHg High 85-95 [facility] Comment on above: Order Comment: Speci men Type: ARTERIAL BLOOD SPECIMENOrdering Facility: [facility] Address: [address] [place], [place] [address] Performed By: #### A LLMG ####[facility] LABCLIA [id number] [address] [place] [address] [place] Oxyhemoglobin (BldA) [Mass fraction] 97 % Normal 95-98 [facility] Comment on above: Order Comment: Speci men Type: ARTERIAL BLOOD SPECIMENOrdering Facility: [facility] Address: [address] [place], [place] [address] Performed By: #### A LLMG ####[facility] LABCLIA [id number] [place] [address] [place] pH (Bld) 7.35 [pH] Normal 7.35-7.45 [facility] Comment on above: Order Comment: Speci men Type: ARTERIAL BLOOD SPECIMENOrdering Facility: [facility] Address: [address] [place] [address] Performed By: #### A LLMG ####[facility] LABCLIA [id number] [place] [address] [place] pH adjusted to patient's actual temperature (Bld) 7.35 Normal 7.35-7.45 [facility] Comment on above: Order Comment: Speci men Type: ARTERIAL BLOOD SPECIMENOrdering Facility: [facility] Address: [address] [place] [address] Performed By: #### A LLMG ####[facility] LABCLIA [id number] [place] [address] [place] Potassium [Moles/Vol] 4.7 mmol/L Normal 3.5-5.0 [facility] Comment on above: Order Comment: Speci men Type: ARTERIAL BLOOD SPECIMENOrdering Facility: [facility] Address: [address] [place] [address] Performed By: #### A LLMG ####[facility] LABCLIA [id number] [place] [address] [place] Sodium [Moles/Vol] 138 mmol/L Normal 136-144 [facility] Comment on above: Order Comment: Speci men Type: ARTERIAL BLOOD SPECIMENOrdering Facility: [facility] Address: [address] [place] [address] Performed By: #### A LLMG ####[facility] LABCLIA [id number] [place] [id number] [place] Base deficit (BldA) [Moles/Vol] -4 mmol/L Low -2-0 [facility] Comment on above: Order Comment: Speci men Type: ARTERIAL BLOOD SPECIMENOrdering Facility: [facility] Address: [address] [place] [address] Performed By: #### A LLMG ####[facility] [id number] [place] [address] [place] Calcium.ionized (Bld) [Mass/Vol] 1.23 mmol/L Normal 1.08-1.30 [facility] Comment on above: Order Comment: Speci men Type: ARTERIAL BLOOD SPECIMENOrdering Facility: [facility] Address: [address] [place] [address] Performed By: #### A LLMG ####[facility] [id number] [place] [address] [place] Calcium.ionized adjusted to pH 7.4 (BldA) [Moles/Vol] 1.20 mmol/L Normal 1.08-1.30 [facility] Comment on above: Order Comment: Speci men Type: ARTERIAL BLOOD SPECIMENOrdering Facility: [facility] Address: [address] [place] [address] Performed By: #### A LLMG ####[facility] [id number] [place] [address] [place] Carboxyhemoglobin (BldA) [Mass fraction] 2.1 % High 0.0-2.0 [facility] Comment on above: Order Comment: Speci men Type: ARTERIAL BLOOD SPECIMENOrdering Facility: [facility] Address: [address] [place] [address] Result Comment: Carb oxyhemoglobin Reference Range for Smokers: 2.0-8.0% Performed By: #### A LLMG ####[facility] [id number] [place] [address] [place] CO2 (Bld) [Partial pressure] 37 mm Hg Normal 36-46 [facility] Comment on above: Order Comment: Speci men Type: ARTERIAL BLOOD SPECIMENOrdering Facility: [facility] Address: [address] [place] [address] Performed By: #### A LLMG ####[facility] LABCLIA [id number] [place] [address] [place] CO2 adjusted to patient's actual temperature (Bld) [Partial pressure] 37 mmHg Normal 36-46 [facility] Comment on above: Order Comment: Speci men Type: ARTERIAL BLOOD SPECIMENOrdering Facility: [facility] Address: [address] [place] [address] Performed By: #### A LLMG ####[facility] LABCLIA [id number] [place] [address] [place] Glucose [Mass/Vol] 154 mg/dL High 60-105 [facility] Comment on above: Order Comment: Speci men Type: ARTERIAL BLOOD SPECIMENOrdering Facility: [facility] Address: [address] [place] [address] Performed By: #### A LLMG ####[facility] LABCLIA [id number] [place] [address] [place] HCO3 (Bld) [Moles/Vol] 20 mmol/L Low 22-26 [facility] Comment on above: Order Comment: Speci men Type: ARTERIAL BLOOD SPECIMENOrdering Facility: [facility] Address: [address] [place] [address] Performed By: #### A LLMG ####[facility] LABCLIA [id number] [place] [address] [place] Hematocrit (Bld) [Volume fraction] 29.2 % Low 36.0-46.0 [facility] Comment on above: Order Comment: Speci men Type: ARTERIAL BLOOD SPECIMENOrdering Facility: [facility] Address: [address] [place] [address] Performed By: #### A LLMG ####[facility] LABCLIA [id number] [place] [address] [place] Hemoglobin (Bld) [Mass/Vol] 9.4 g/dL Low 11.5-15.5 [facility] Comment on above: Order Comment: Speci men Type: ARTERIAL BLOOD SPECIMENOrdering Facility: [facility] Address: [address] [place] [address] Performed By: #### A LLMG ####[facility] LABCLIA [id number] [place] [address] [place] Lactate [Moles/Vol] 2.2 mmol/L Normal 0.5-2.2 [facility] Comment on above: Order Comment: Speci men Type: ARTERIAL BLOOD SPECIMENOrdering Facility: [facility] Address: [address] [place] [address] Performed By: #### A LLMG ####[facility] LABIA [id number] [place] [address] [place] Magnesium [Moles/Vol] 0.67 mmol/L High 0.45-0.60 [facility] Comment on above: Order Comment: Speci men Type: ARTERIAL BLOOD SPECIMENOrdering Facility: [facility] Address: [address] [place] [address] Performed By: #### A LLMG ####[facility] LABIA [id number] [place] [address] [place] Methemoglobin (Bld) [Mass fraction] 0.4 % Normal 0.0-1.5 [facility] Comment on above: Order Comment: Speci men Type: ARTERIAL BLOOD SPECIMENOrdering Facility: [facility] Address: [address] [place] [address] Performed By: #### A LLMG ####[facility] LABIA [id number] [place] [id number] [place] Oxygen (Bld) [Partial pressure] 209 mm Hg High 85-95 [facility] Comment on above: Order Comment: Speci men Type: ARTERIAL BLOOD SPECIMENOrdering Facility: [facility] Address: [address] [place] [address] Performed By: #### A LLMG ####[facility] LABCLIA [id number] [place] [address] [place] Oxygen adjusted to patient's actual temperature (Bld) [Partial pressure] 209 mmHg High 85-95 [facility] Comment on above: Order Comment: Speci men Type: ARTERIAL BLOOD SPECIMENOrdering Facility: [facility] Address: [address] [place] [address] Performed By: #### A LLMG ####[facility] LABCLIA [id number] [place] [address] [place] Oxyhemoglobin (BldA) [Mass fraction] 98 % Normal 95-98 [facility] Comment on above: Order Comment: Speci men Type: ARTERIAL BLOOD SPECIMENOrdering Facility: [facility] Address: [address] [place] [address] Performed By: #### A LLMG ####[facility] LABIA [id number] [place] [address] [place] pH (Bld) 7.35 [pH] Normal 7.35-7.45 [facility] Comment on above: Order Comment: Speci men Type: ARTERIAL BLOOD SPECIMENOrdering Facility: [facility] Address: [address] [place] [address] Performed By: #### A LLMG ####[facility] LABCLIA [id number] [place] [address] [place] pH adjusted to patient's actual temperature (Bld) 7.35 Normal 7.35-7.45 [facility] Comment on above: Order Comment: Speci men Type: ARTERIAL BLOOD SPECIMENOrdering Facility: [facility] Address: [address] [place] [address] Performed By: #### A LLMG ####[facility] LABCLIA [id number] [place] [id number] [place] Potassium [Moles/Vol] 4.7 mmol/L Normal 3.5-5.0 [facility] Comment on above: Order Comment: Speci men Type: ARTERIAL BLOOD SPECIMENOrdering Facility: [facility] Address: [address] [place] [address] Performed By: #### A LLMG ####[facility] LABIA [id number] [place] [address] [place] Sodium [Moles/Vol] 136 mmol/L Normal 136-144 [facility] Comment on above: Order Comment: Speci men Type: ARTERIAL BLOOD SPECIMENOrdering Facility: [facility] Address: [address] [place] [address] Performed By: #### A LLMG ####[facility] LABIA [id number] [place] [address] [place] Base deficit (BldA) [Moles/Vol] -4 mmol/L Low -2-0 [facility] Comment on above: Order Comment: Speci men Type: ARTERIAL BLOOD SPECIMENOrdering Facility: [facility] Address: [address] [place] [address] Performed By: #### A LLMG ####[facility] LABIA [id number] [place] [address] [place] Calcium.ionized (Bld) [Mass/Vol] 1.28 mmol/L Normal 1.08-1.30 [facility] Comment on above: Order Comment: Speci men Type: ARTERIAL BLOOD SPECIMENOrdering Facility: [facility] Address: [address] [place] [address] Performed By: #### A LLMG ####[facility] LABIA [id number] [place] [address] [place] Calcium.ionized adjusted to pH 7.4 (BldA) [Moles/Vol] 1.22 mmol/L Normal 1.08-1.30 [facility] Comment on above: Order Comment: Speci men Type: ARTERIAL BLOOD SPECIMENOrdering Facility: [facility] Address: [address] [place] [address] Performed By: #### A LLMG ####[facility] LABCLIA [id number] [place] [address] [place] Carboxyhemoglobin (BldA) [Mass fraction] 1.9 % Normal 0.0-2.0 [facility] Comment on above: Order Comment: Speci men Type: ARTERIAL BLOOD SPECIMENOrdering Facility: [facility] Address: [address] [place] [address] Result Comment: Carb oxyhemoglobin Reference Range for Smokers: 2.0-8.0% Performed By: #### A LLMG ####[facility] LABCLIA [id number] [place] [address] [place] CO2 (Bld) [Partial pressure] 43 mm Hg Normal 36-46 [facility] Comment on above: Order Comment: Speci men Type: ARTERIAL BLOOD SPECIMENOrdering Facility: [facility] Address: [address] [place] [address] Performed By: #### A LLMG ####[facility] LABCLIA [id number] [place] [address] [place] CO2 adjusted to patient's actual temperature (Bld) [Partial pressure] 43 mmHg Normal 36-46 [facility] Comment on above: Order Comment: Speci men Type: ARTERIAL BLOOD SPECIMENOrdering Facility: [facility] Address: [address] [place] [address] Performed By: #### A LLMG ####[facility] LABCLIA [id number] [place] [address] [place] Glucose [Mass/Vol] 109 mg/dL High 60-105 [facility] Comment on above: Order Comment: Speci men Type: ARTERIAL BLOOD SPECIMENOrdering Facility: [facility] Address: [address] [place] [address] Performed By: #### A LLMG ####[facility] LABCLIA [id number] [address] [address] [place] HCO3 (Bld) [Moles/Vol] 22 mmol/L Normal 22-26 [facility] Comment on above: Order Comment: Speci men Type: ARTERIAL BLOOD SPECIMENOrdering Facility: [facility] Address: [address] [place] [address] Performed By: #### A LLMG ####[facility] LABCLIA [id number] [place] [address] [place] Hematocrit (Bld) [Volume fraction] 27.5 % Low 36.0-46.0 [facility] Comment on above: Order Comment: Speci men Type: ARTERIAL BLOOD SPECIMENOrdering Facility: [facility] Address: [address] [place] [address] Performed By: #### A LLMG ####[facility] LABIA [id number] [place] [address] [place] Hemoglobin (Bld) [Mass/Vol] 8.9 g/dL Low 11.5-15.5 [facility] Comment on above: Order Comment: Speci men Type: ARTERIAL BLOOD SPECIMENOrdering Facility: [facility] Address: [address] [place] [address] Performed By: #### A LLMG ####[facility] LABIA [id number] [place] [address] [place] Lactate [Moles/Vol] 1.5 mmol/L Normal 0.5-2.2 [facility] Comment on above: Order Comment: Speci men Type: ARTERIAL BLOOD SPECIMENOrdering Facility: [facility] Address: [address] [place] [address] Performed By: #### A LLMG ####[facility] LABCLIA [id number] [place] [id number] [place] Magnesium [Moles/Vol] 0.67 mmol/L High 0.45-0.60 [facility] Comment on above: Order Comment: Speci men Type: ARTERIAL BLOOD SPECIMENOrdering Facility: [facility] Address: [address] [place] [address] Performed By: #### A LLMG ####[facility] LABCLIA [id number] [address] [address] [place] Methemoglobin (Bld) [Mass fraction] 1.3 % Normal 0.0-1.5 [facility] Comment on above: Order Comment: Speci men Type: ARTERIAL BLOOD SPECIMENOrdering Facility: [facility] Address: [address] [place] [address] Performed By: #### A LLMG ####[facility] LABCLIA [id number] [place] [id number] [place] Oxygen (Bld) [Partial pressure] 178 mm Hg High 85-95 [facility] Comment on above: Order Comment: Speci men Type: ARTERIAL BLOOD SPECIMENOrdering Facility: [facility] Address: [address] [place] [address] Performed By: #### A LLMG ####[facility] LABCLIA [id number] [place] [id number] [place] Oxygen adjusted to patient's actual temperature (Bld) [Partial pressure] 178 mmHg High 85-95 [facility] Comment on above: Order Comment: Speci men Type: ARTERIAL BLOOD SPECIMENOrdering Facility: [facility] Address: [address] [place] [address] Performed By: #### A LLMG ####[facility] LABCLIA [id number] [place] [id number] [place] Oxyhemoglobin (BldA) [Mass fraction] 96 % Normal 95-98 [facility] Comment on above: Order Comment: Speci men Type: ARTERIAL BLOOD SPECIMENOrdering Facility: [facility] Address: [address] [place], [place] [address] Performed By: #### A LLMG ####[facility] LABCLIA [id number] [address] [address] [place] pH (Bld) 7.32 [pH] Low 7.35-7.45 [facility] Comment on above: Order Comment: Speci men Type: ARTERIAL BLOOD SPECIMENOrdering Facility: [facility] Address: [address] [place] [address] Performed By: #### A LLMG ####[facility] LABCLIA [id number] [address] [address] [place] pH adjusted to patient's actual temperature (Bld) 7.32 Low 7.35-7.45 [facility] Comment on above: Order Comment: Speci men Type: ARTERIAL BLOOD SPECIMENOrdering Facility: [facility] Address: [address] [place] [address] Performed By: #### A LLMG ####[facility] LABIA [id number] [place] [id number] [place] Potassium [Moles/Vol] 4.2 mmol/L Normal 3.5-5.0 [facility] Comment on above: Order Comment: Speci men Type: ARTERIAL BLOOD SPECIMENOrdering Facility: [facility] Address: [address] [place] [address] Performed By: #### A LLMG ####[facility] LABCLIA [id number] [place] [id number] [place] Sodium [Moles/Vol] 138 mmol/L Normal 136-144 [facility] Comment on above: Order Comment: Speci men Type: ARTERIAL BLOOD SPECIMENOrdering Facility: [facility] Address: [address] [place] [address] Performed By: #### A LLMG ####[facility] LABCLIA [id number] [address] [address] [place] BRIEF OP NOTon 12-12-2024 BRIEF OP NOT Normal [facility] CASE MANAGEMon 12-12-2024 CASE MANAGEM Normal [facility] CBC panel Auto (Bld)on 12-12 Erythrocyte distribution width (RBC) [Ratio] 22.2 % High 11.5-15.0 [facility] Comment on above: Order Comment: Speci men Type: BLOOD SPECIMENOrdering Facility: [facility] Address: [address] [place] [address] Performed By: #### 5 8410-2 ####[facility] LABCLIA [id number] [place] [address] [place] Hematocrit (Bld) [Volume fraction] 28.3 % Low 36.0-46.0 [facility] Comment on above: Order Comment: Speci men Type: BLOOD SPECIMENOrdering Facility: [facility] Address: [address] [place] [address] Performed By: #### 5 8410-2 ####[facility] LABCLIA [id number] [place] [address] [place] Hemoglobin (Bld) [Mass/Vol] 8.6 g/dL Low 11.5-15.5 [facility] Comment on above: Order Comment: Speci men Type: BLOOD SPECIMENOrdering Facility: [facility] Address: [address] [place] [address] Performed By: #### 5 8410-2 ####[facility] LABIA [id number] [place] [address] [place] MCH (RBC) [Entitic mass] 26.4 pg Normal 26.0-34.0 [facility] Comment on above: Order Comment: Speci men Type: BLOOD SPECIMENOrdering Facility: [facility] Address: [address] [place] [address] Performed By: #### 5 8410-2 ####[facility] LABCLIA [id number] [place] [id number] [place] MCHC (RBC) [Mass/Vol] 30.4 g/dL Low 30.5-36.0 [facility] Comment on above: Order Comment: Speci men Type: BLOOD SPECIMENOrdering Facility: [facility] Address: [address] [place] [address] Performed By: #### 5 8410-2 ####[facility] LABIA [id number] [place] [address] [place] MCV (RBC) [Entitic vol] 86.8 fL Normal 80.0-100.0 [facility] Comment on above: Order Comment: Speci men Type: BLOOD SPECIMENOrdering Facility: [facility] Address: [address] [place] [address] Performed By: #### 5 8410-2 ####[facility] LABIA [id number] [place] [address] [place] Nucleated RBC (Bld) [#/Vol] 0.02 10*3/uL High <0.01 [facility] Comment on above: Order Comment: Speci men Type: BLOOD SPECIMENOrdering Facility: [facility] Address: [address] [place] [address] Performed By: #### 5 8410-2 ####[facility] LABIA [id number] [place] [address] [place] Platelet mean volume (Bld) [Entitic vol] 9.3 fL Normal 9.0-12.7 [facility] Comment on above: Order Comment: Speci men Type: BLOOD SPECIMENOrdering Facility: [facility] Address: [address] [place] [address] Performed By: #### 5 8410-2 ####[facility] LABIA [id number] [place] [address] [place] Platelets (Bld) [#/Vol] 292 10*3/uL Normal 150-400 [facility] Comment on above: Order Comment: Speci men Type: BLOOD SPECIMENOrdering Facility: [facility] Address: [address] [place] [address] Performed By: #### 5 8410-2 ####[facility] LABIA [id number] [place] [id number] [place] RBC (Bld) [#/Vol] 3.26 10*6/uL Low 3.90-5.20 [facility] Comment on above: Order Comment: Speci men Type: BLOOD SPECIMENOrdering Facility: [facility] Address: [address] [place] [address] Performed By: #### 5 8410-2 ####[facility] LABIA [id number] [place] [id number] [place] WBC (Bld) [#/Vol] 6.93 10*3/uL Normal 3.70-11.00 [facility] Comment on above: Order Comment: Speci men Type: BLOOD SPECIMENOrdering Facility: [facility] Address: [address] [place] [address] Performed By: #### 5 8410-2 ####[facility] LABIA [id number] [place] [id number] [place] Comprehensive metabolic 2000 panelon 12-12-2024 Albumin [Mass/Vol] 3.2 g/dL Low 3.9-4.9 [facility] Comment on above: Order Comment: Speci men Type: BLOOD SPECIMENOrdering Facility: [facility] Address: [address] [place] [address] Performed By: #### 2 4323-8, , 277-1 ####[facility] LABIA [id number] [place] [id number] [place] ALP [Catalytic activity/Vol] 173 U/L High 34-123 [facility] Comment on above: Order Comment: Speci men Type: BLOOD SPECIMENOrdering Facility: [facility] Address: [address] [place] [address] Performed By: #### 2 4323-8, , 2776-06 ####[facility] LABCLIA [id number] [address] [address] [place] ALT [Catalytic activity/Vol] 41 U/L High 7-38 [facility] Comment on above: Order Comment: Speci men Type: BLOOD SPECIMENOrdering Facility: [facility] Address: [address] [place] [address] Performed By: #### 2 4323-8, , 2776-06 ####[facility] LABIA [id number] [address] [address] [place] Anion gap [Moles/Vol] 12 mmol/L Normal 8-15 [facility] Comment on above: Order Comment: Speci men Type: BLOOD SPECIMENOrdering Facility: [facility] Address: [address] [place] [address] Performed By: #### 2 4323-8, , 2776-06 ####[facility] LABIA [id number] [place] [id number] [place] AST [Catalytic activity/Vol] 33 U/L Normal 13-35 [facility] Comment on above: Order Comment: Speci men Type: BLOOD SPECIMENOrdering Facility: [facility] Address: [address] [place] [address] Result Comment: Resu lts may be falsely increased due to interference from hemolysis. Suggest reorder as clinically indicated. Performed By: #### 2 4323-8, , 2776-06 ####[facility] [id number] [place] [id number] [place] Bilirubin [Mass/Vol] 0.5 mg/dL Normal 0.2-1.3 [facility] Comment on above: Order Comment: Speci men Type: BLOOD SPECIMENOrdering Facility: [facility] Address: [address] [place] [address] Performed By: #### 2 43238, , 2776-06 ####[facility] LABCLIA [id number] [address] [address] [place] Calcium [Mass/Vol] 8.7 mg/dL Normal 8.5-10.2 [facility] Comment on above: Order Comment: Speci men Type: BLOOD SPECIMENOrdering Facility: [facility] Address: [address] [place] [address] Performed By: #### 2 432-8, , 2776-06 ####[facility] LABCLIA [id number] [place] [address] [place] Chloride [Moles/Vol] 105 mmol/L Normal 98-107 [facility] Comment on above: Order Comment: Speci men Type: BLOOD SPECIMENOrdering Facility: [facility] Address: [address] [place] [address] Performed By: #### 2 432-8, , 2776-06 ####[facility] LABCLIA [id number] [place] [address] [place] CO2 [Moles/Vol] 20 mmol/L Low 22-30 [facility] Comment on above: Order Comment: Speci men Type: BLOOD SPECIMENOrdering Facility: [facility] Address: [address] [place] [address] Performed By: #### 2 4323-8, , 2776-06 ####[facility] LABCLIA [id number] [place] [address] [place] Creatinine [Mass/Vol] 0.82 mg/dL Normal 0.58-0.96 [facility] Comment on above: Order Comment: Speci men Type: BLOOD SPECIMENOrdering Facility: [facility] Address: [address] [place], [place] [address] Performed By: #### 2 4323-8, , 2776-06 ####[facility] LABCLIA [id number] [place] [address] [place] Creatinine and Glomerular filtration rate.predicted panel (S/P/Bld) 92 mL/min/1.73m??? Normal >=60 [facility] Comment on above: Order Comment: Dora finch Type: BLOOD SPECIMENOrdering Facility: [facility] Address: [address] [place] [address] Result Comment: Zeny mated Glomerular Filtration Rate [...] actual GFR. Performed By: #### 2 4323-8, 90017-0, 7- ####[facility] [id number] [place] [address] [place] Glucose [Mass/Vol] 100 mg/dL High 74-99 [facility] Comment on above: Order Comment: Dora finch Type: BLOOD SPECIMENOrdering Facility: [facility] Address: [address] [place] [address] Result Comment: The [place] Diabetes Association (ADA) provides guidance for cutoff [...] Standards of Medical Care in Diabetes 2016, [employer]. Diabetes Care. 2016.39(Suppl 1). Performed By: #### 2 4323-8, 02941-5, 2777-1 ####[facility] LABIA [id number] [address] [address] [place] Potassium [Moles/Vol] 4.4 mmol/L Normal 3.7-5.1 [facility] Comment on above: Order Comment: Speci men Type: BLOOD SPECIMENOrdering Facility: [facility] Address: [address] [place] [address] Performed By: #### 2 4323-8, , 2776-06 ####[facility] LABCLIA [id number] [place] [address] [place] Protein [Mass/Vol] 6.4 g/dL Normal 6.3-8.0 [facility] Comment on above: Order Comment: Speci men Type: BLOOD SPECIMENOrdering Facility: [facility] Address: [address] [place] [address] Performed By: #### 2 432-8, , 2776-06 ####[facility] LABCLIA [id number] [place] [address] [place] Sodium [Moles/Vol] 137 mmol/L Normal 136-144 [facility] Comment on above: Order Comment: Speci men Type: BLOOD SPECIMENOrdering Facility: [facility] Address: [address] [place] [address] Performed By: #### 2 432-8, , 2776-06 ####[facility] LABCLIA [id number] [address], [facility] [place] Urea nitrogen [Mass/Vol] 20 mg/dL Normal 7-21 [facility] Comment on above: Order Comment: Speci men Type: BLOOD SPECIMENOrdering Facility: [facility] Address: [address] [place], [place] [address] Performed By: #### 2 4323-8, , 2776-06 ####[facility] LABCLIA [id number] [address] [place] [address] [place] Lactate (Bld) [Moles/Vol]on 12-12-2024 Lactate [Moles/Vol] 5.2 mmol/L High 0.5-2.2 [facility] Comment on above: Order Comment: Speci men Type: BLOOD SPECIMENOrdering Facility: [facility] Address: [address] [place] [address] Performed By: #### 3 2693-4 ####[facility] LABIA [id number] [place] [address] [place] Magnesium SerPl-mCncon 12-12 Magnesium [Mass/Vol] 1.8 mg/dL Normal 1.7-2.3 [facility] Comment on above: Order Comment: Speci men Type: BLOOD SPECIMENOrdering Facility: [facility] Address: [address] [place] [address] Performed By: #### 2 4323-8, 20918-1, 2777-1 ####[facility] [id number] [place] [address] [place] OPERATIVE NOon 12-12-2024 OPERATIVE NO Normal [facility] PTT, ANTICOAGULANT THERAPYon 12-12-2024 aPTT Coag (PPP) [Time] 22.2 s Low 23.0-32.4 [facility] Comment on above: Order Comment: Speci men Type: BLOOD SPECIMENOrdering Facility: [facility] Address: [address] [place] [address] Performed By: #### P TTAC ####[facility] [id number] [place] [address] [place] Pathology biopsy report Satn (Tiss)on 12-12-2024 AP DISCLAIMER Normal [facility] Comment on above: Order Comment: Speci men Type: TISSUE SPECIMENOrdering Facility: [facility] Address: [address] [place] [address] Result Comment: Billie cardenas Developed Test (LDT) Disclaimer:Performance characteristics of immunohistochemical, immunofluorescent, and chromogenic in-situ hybridization tests have been determined by the performing laboratory within [facility] Department ([facility], [facility], [facility], [facility], [facility], [facility], or [facility]) in a manner consistent with CLIA requirements. One or more of these tests may not have been cleared or approved by the FDA. [facility] is regulated under CLIA as qualified to perform high-complexity testing. These tests are used for clinical purposes. These should not be regarded as investigational or for research. Positive and negative controls stain appropriately. Performed By: #### 6 6121-5 ####[facility] LABIA [id number] [address] [place] CASE REPORT Normal [facility] Comment on above: Order Comment: Speci men Type: TISSUE SPECIMENOrdering Facility: [facility] Address: [address] [place] [address] Result Comment: Surg ical Pathology Report Case: [id number] Provider: Kirit Devine MD Collected: 12/12/2024 10:48 AMOrdering Location: Admitting Received: 12/12/2024 03:06 PMPathologist: Kae Manning MDSpecimens: A) - Omentum, Resection, omentum B) - Small Bowel, Ileostomy, Loop ileostomy C) - Soft Tissue (Not otherwise specified), Peristomal Fat Performed By: #### 6 6121-5 ####[facility] LABIA [id number] [place] [id number] [place] CLINICAL HISTORY Normal [facility] Comment on above: Order Comment: Speci men Type: TISSUE SPECIMENOrdering Facility: [facility] Address: [address] [place] [address] Result Comment: Pre- op diagnosis:High output ileostomy (HCC) [R19.8, Z93.2] Performed By: #### 6 6121-5 ####[facility] LABCLIA [id number] [address] [place] FINAL DIAGNOSIS Normal [facility] Comment on above: Order Comment: Speci men Type: TISSUE SPECIMENOrdering Facility: [facility] Address: [address] [place] [address] Result Comment: A. O mentum, omentectomy:- Benign mature adipose tissue.B. Ileum, ileostomy takedown:- Enterocutaneous tissue with histologic features consistent with an ileostomy site.C. Soft tissue, peristomal fat, excision:- Fibroadipose tissue with fat necrosis. at 1624 EDT Performed By: #### 6 6121-5 ####[facility] LABCLIA [id number] [address] OF [facility] FINAL PERFORMING LAB Normal [facility] Comment on above: Order Comment: Speci men Type: TISSUE SPECIMENOrdering Facility: [facility] Address: [address] [place] [address] Result Comment: Diag nostic interpretation performed at: [facility], [address] [place] [address], [place] [address] CLIA# [id number] Director: Jaison Lema MD Performed By: #### 6 6121-5 ####[facility] LABCLIA [id number] [address] [place] GROSS DESCRIPTION Normal [facility] Comment on above: Order Comment: Speci men Type: TISSUE SPECIMENOrdering Facility: [facility] Address: [address] [place] [address] Result Comment: A. O mentum, ResectionReceived fresh labeled "omentum" is a 15.0 x 14.0 x 1.0 cm aggregate of cunha-yellow, lobulated soft tissue consistent with omentum. No nodules are areas of induration are seen. Sectioning reveals yellow, homogeneous cut surfaces. Government Sales Manager section submitted in A1.B. Small Bowel, IleostomyReceived fresh labeled "loop ileostomy" is a 7.5 x 7.0 x 2.0 cm loop ileostomy specimen. The serosal surfaces is cunha-pink and focally roughened with attached adipose tissue. There is a 4.5 x 3.5 cm ostomy site with a rim of cunha-pink, granular skin. Opening reveals cunha-pink velvety mucosa with the usual intestinal folds. No polyps or mass lesions are identified. A paper sales representative section of the ostomy site is submitted in B1.C. Soft Tissue (Not otherwise specified)Received fresh labeled "peristomal fat" is a 4.0 x 3.5 x 2.0 cm cunha-yellow lobulated soft tissue fragment. Sectioning reveals cunha-yellow homogenous cut surfaces. No nodules or areas of induration are grossly appreciated. Government Sales Manager section submitted in C1.Gross examination performed at [facility], [address] [place], [place] [address]MSL/ARIELA 12/12/24 3:23 PM Performed By: #### 6 6121-5 ####[facility] LABIA [id number] [place] [address] [place] Phosphate SerPl-mCncon 12-12 Phosphate [Mass/Vol] 3.7 mg/dL Normal 2.7-4.8 [facility] Comment on above: Order Comment: Speci men Type: BLOOD SPECIMENOrdering Facility: [facility] Address: [address] [place] [address] Performed By: #### 2 4323-8, 21682-8, 2777-1 ####[facility] [id number] [place] [address] [place] CBC panel Auto (Bld)on 12-11 Erythrocyte distribution width (RBC) [Ratio] 22.3 % High 11.5-15.0 [facility] Comment on above: Order Comment: Speci men Type: BLOOD SPECIMENOrdering Facility: [facility] Address: [address] [place] [address] Performed By: #### 5 8410-2 ####[facility] [id number] [place] [address] [place] Hematocrit (Bld) [Volume fraction] 26.7 % Low 36.0-46.0 [facility] Comment on above: Order Comment: Speci men Type: BLOOD SPECIMENOrdering Facility: [facility] Address: [address] [place] [address] Performed By: #### 5 8410-2 ####[facility] LABIA [id number] [place] [id number] [place] Hemoglobin (Bld) [Mass/Vol] 8.3 g/dL Low 11.5-15.5 [facility] Comment on above: Order Comment: Speci men Type: BLOOD SPECIMENOrdering Facility: [facility] Address: [address] [place] [address] Performed By: #### 5 8410-2 ####[facility] [id number] [place] [address] [place] MCH (RBC) [Entitic mass] 28.0 pg Normal 26.0-34.0 [facility] Comment on above: Order Comment: Speci men Type: BLOOD SPECIMENOrdering Facility: [facility] Address: [address] [place] [address] Performed By: #### 5 8410-2 ####[facility] [id number] [place] [address] [place] MCHC (RBC) [Mass/Vol] 31.1 g/dL Normal 30.5-36.0 [facility] Comment on above: Order Comment: Speci men Type: BLOOD SPECIMENOrdering Facility: [facility] Address: [address] [place] [address] Performed By: #### 5 8410-2 ####[facility] [id number] [place] [address] [place] MCV (RBC) [Entitic vol] 90.2 fL Normal 80.0-100.0 [facility] Comment on above: Order Comment: Speci men Type: BLOOD SPECIMENOrdering Facility: [facility] Address: [address] [place] [address] Performed By: #### 5 8410-2 ####[facility] LABCLIA [id number] [address], [place] [address] [place] Nucleated RBC (Bld) [#/Vol] 0.02 10*3/uL High <0.01 [facility] Comment on above: Order Comment: Speci men Type: BLOOD SPECIMENOrdering Facility: [facility] Address: [address] [place] [address] Performed By: #### 5 8410-2 ####[facility] LABIA [id number] [address], [place] [address] [place] Platelet mean volume (Bld) [Entitic vol] 11.2 fL Normal 9.0-12.7 [facility] Comment on above: Order Comment: Speci men Type: BLOOD SPECIMENOrdering Facility: [facility] Address: [address] [place] [address] Performed By: #### 5 8410-2 ####[facility] LABCLIA [id number] [place] [address] [place] Platelets (Bld) [#/Vol] 301 10*3/uL Normal 150-400 [facility] Comment on above: Order Comment: Speci men Type: BLOOD SPECIMENOrdering Facility: [facility] Address: [address] [place] [address] Performed By: #### 5 8410-2 ####[facility] LABCLIA [id number] [address], [facility] [place] RBC (Bld) [#/Vol] 2.96 10*6/uL Low 3.90-5.20 [facility] Comment on above: Order Comment: Speci men Type: BLOOD SPECIMENOrdering Facility: [facility] Address: [address] [place] [address] Performed By: #### 5 8410-2 ####[facility] LABCLIA [id number] [place] [id number] [place] WBC (Bld) [#/Vol] 6.78 10*3/uL Normal 3.70-11.00 [facility] Comment on above: Order Comment: Speci men Type: BLOOD SPECIMENOrdering Facility: [facility] Address: [address] [place] [address] Performed By: #### 5 8410-2 ####[facility] LABIA [id number] [place] [address] [place] CONSULT PROGon 12-11-2024 CONSULT PROG Normal [facility] CONSULT PROG Normal [facility] CONSULT PROG Normal [facility] Comprehensive metabolic 2000 panelon 12-11-2024 Albumin [Mass/Vol] 3.5 g/dL Low 3.9-4.9 [facility] Comment on above: Order Comment: Speci men Type: BLOOD SPECIMENOrdering Facility: [facility] Address: [address] [place] [address] Performed By: #### 2 4323-8, 55756-5, 2777-1, 2571-8 ####[facility] LABIA [id number] [place] [id number] [place] ALP [Catalytic activity/Vol] 205 U/L High 34-123 [facility] Comment on above: Order Comment: Speci men Type: BLOOD SPECIMENOrdering Facility: [facility] Address: [address] [place] [address] Performed By: #### 2 4323-8, 85760-3, 2777-1, 2571-8 ####[facility] LABIA [id number] [place] [id number] [place] ALT [Catalytic activity/Vol] 45 U/L High 7-38 [facility] Comment on above: Order Comment: Speci men Type: BLOOD SPECIMENOrdering Facility: [facility] Address: [address] [place] [address] Performed By: #### 2 4323-8, 45490-1, 277-1, 8 ####[facility] LABCLIA [id number] [address] [address] [place] Anion gap [Moles/Vol] 12 mmol/L Normal 8-15 [facility] Comment on above: Order Comment: Speci men Type: BLOOD SPECIMENOrdering Facility: [facility] Address: [address] [place] [address] Performed By: #### 2 4323-8, 08875-9, 2776-, 8 ####[facility] LABCLIA [id number] [place] [id number] [place] AST [Catalytic activity/Vol] 38 U/L High 13-35 [facility] Comment on above: Order Comment: Speci men Type: BLOOD SPECIMENOrdering Facility: [facility] Address: [address] [place] [address] Performed By: #### 2 4323-8, 75420-0, 2776-06, 8 ####[facility] LABCLIA [id number] [place] [address] [place] Bilirubin [Mass/Vol] 0.5 mg/dL Normal 0.2-1.3 [facility] Comment on above: Order Comment: Speci men Type: BLOOD SPECIMENOrdering Facility: [facility] Address: [address] [place], [place] [address] Performed By: #### 2 4323-8, 96102-5, 2776-06, 8 ####[facility] LABCLIA [id number] [address] [address] [place] Calcium [Mass/Vol] 9.3 mg/dL Normal 8.5-10.2 [facility] Comment on above: Order Comment: Speci men Type: BLOOD SPECIMENOrdering Facility: [facility] Address: [address] [place] [address] Performed By: #### 2 4323-8, 61136-7, 2777-1, 257-8 ####[facility] LABCLIA [id number] [address] [address] [place] Chloride [Moles/Vol] 102 mmol/L Normal 98-107 [facility] Comment on above: Order Comment: Speci men Type: BLOOD SPECIMENOrdering Facility: [facility] Address: [address] [place] [address] Performed By: #### 2 4323-8, 00214-4, 277-1, 257-8 ####[facility] LABCLIA [id number] [place] [address] [place] CO2 [Moles/Vol] 24 mmol/L Normal 22-30 [facility] Comment on above: Order Comment: Speci men Type: BLOOD SPECIMENOrdering Facility: [facility] Address: [address] [place] [address] Performed By: #### 2 4323-8, 72522-7, 277-1, 2578 ####[facility] LABCLIA [id number] [place] [address] [place] Creatinine [Mass/Vol] 0.77 mg/dL Normal 0.58-0.96 [facility] Comment on above: Order Comment: Speci men Type: BLOOD SPECIMENOrdering Facility: [facility] Address: [address] [place] [address] Performed By: #### 2 4323-8, 61619-5, 2771, 8 ####[facility] LABCLIA [id number] [place] [address] [place] Creatinine and Glomerular filtration rate.predicted panel (S/P/Bld) 100 mL/min/1.73m??? Normal >=60 [facility] Comment on above: Order Comment: Speci men Type: BLOOD SPECIMENOrdering Facility: [facility] Address: [address] [place] [address] Result Comment: Zeny mated Glomerular Filtration Rate [...] GFR. Performed By: #### 2 4323-8, , 2776-06, 2571-01 ####[facility] LABIA [id number] [address] [address] [place] Glucose [Mass/Vol] 118 mg/dL High 74-99 [facility] Comment on above: Order Comment: Dora finch Type: BLOOD SPECIMENOrdering Facility: [facility] Address: [address] [place] [address] Result Comment: The [place] Diabetes [employer] (ADA) provides guidance for cutoff [...] Standards of Medical Care in Diabetes 2016, [place]. Diabetes Care. 2016.39(Suppl 1). Performed By: #### 2 4323-8, , 2776-06, 2571-01 ####[facility] LABIA [id number] [address] [address] [place] Potassium [Moles/Vol] 4.0 mmol/L Normal 3.7-5.1 [facility] Comment on above: Order Comment: Dora finch Type: BLOOD SPECIMENOrdering Facility: [facility] Address: [address] [place] [address] Performed By: #### 2 4323-8, 88716-5, 2776-1, 8 ####[facility] LABIA [id number] [address] [address] [place] Protein [Mass/Vol] 7.1 g/dL Normal 6.3-8.0 [facility] Comment on above: Order Comment: Speci men Type: BLOOD SPECIMENOrdering Facility: [facility] Address: [address] [place], [place] [address] Performed By: #### 2 4323-8, 04558-3, 2776-1, 2578 ####[facility] LABIA [id number] [place] [address] [place] Sodium [Moles/Vol] 138 mmol/L Normal 136-144 [facility] Comment on above: Order Comment: Speci men Type: BLOOD SPECIMENOrdering Facility: [facility] Address: [address] [place] [address] Performed By: #### 2 4323-8, 07441-6, 2771, 8 ####[facility] [id number] [place] [id number] [place] Urea nitrogen [Mass/Vol] 17 mg/dL Normal 7-21 [facility] Comment on above: Order Comment: Speci men Type: BLOOD SPECIMENOrdering Facility: [facility] Address: [address] [place], [place] [address] Performed By: #### 2 4323-8, 69195-2, 2771, 8 ####[facility] LABIA [id number] [address] [address] [place] Magnesium SerPl-mCncon 12-11 Magnesium [Mass/Vol] 1.9 mg/dL Normal 1.7-2.3 [facility] Comment on above: Order Comment: Speci men Type: BLOOD SPECIMENOrdering Facility: [facility] Address: [address] [place] [address] Performed By: #### 2 4323-8, 24751-0, 2777-1, 257-8 ####[facility] LABIA [id number] [address] [address] [place] NUTRITIONon 12-11-2024 NUTRITION Normal [facility] PTT, ANTICOAGULANT THERAPYon 12-11-2024 aPTT Coag (PPP) [Time] 55.2 s High 23.0-32.4 [facility] Comment on above: Order Comment: Speci men Type: BLOOD SPECIMENOrdering Facility: [facility] Address: [address] [place] [address] Performed By: #### P TTAC ####[facility] [id number] [place] [id number] [place] aPTT Coag (PPP) [Time] 68.6 s High 23.0-32.4 [facility] Comment on above: Order Comment: Speci men Type: BLOOD SPECIMENOrdering Facility: [facility] Address: [address] [place] [address] Performed By: #### P TTAC ####[facility] [id number] [place] [id number] [place] Phosphate SerPl-mCncon 12-11 Phosphate [Mass/Vol] 3.1 mg/dL Normal 2.7-4.8 [facility] Comment on above: Order Comment: Speci men Type: BLOOD SPECIMENOrdering Facility: [facility] Address: [address] [place] [address] Performed By: #### 2 4323-8, 01584-4, 2777-1, 257-8 ####[facility] LABIA [id number] [place] [id number] [place] Trigl SerPl-mCncon Triglyceride [Mass/Vol] 107 mg/dL Normal <150 [facility] Comment on above: Order Comment: Speci men Type: BLOOD SPECIMENOrdering Facility: [facility] Address: [address] [place] [address] Result Comment: <150 mg/dL, Normal 150-199 mg/dL, Borderline high 200-499 mg/dL, High>499 mg/dL, Very highReference:1. National Cholesterol Education Program ATP III Guideline At-A-Glance Quick Desk Reference: National Heart, Lung, and Blood [place]. National Institutes of Health. 2001: NIH Publication No. 01-3305. Performed By: #### 2 4323-8, 73143-3, 2777-1, 2571-8 ####[facility] LABCLIA [id number] [place] [id number] [place] Triglyceride [Mass/Vol]on FASTING TIME 0 hrs Normal [facility] Comment on above: Order Comment: Speci men Type: BLOOD SPECIMENOrdering Facility: [facility] Address: [address] [place] [address] Performed By: #### 2 4323-8, 22966-4, 2777-1, 257-8 ####[facility] LABIA [id number] [place] [address] [place] Vancomycin [place] SerPl-mCncon 12-11-2024 Vancomycin random [Mass/Vol] 14.8 ug/mL Normal 10.0-20.0 [facility] Comment on above: Order Comment: Speci men Type: BLOOD SPECIMENOrdering Facility: [facility] Address: [address] [place] [address] Result Comment: Refe rence ranges and high/low indicator flags are provided as general guidelines only. The treating physician must determine appropriate target levels/dosing based on the specific clinical situation. Performed By: #### 4 091-5 ####[facility] LABCLIA [id number] [place] [id number] [place] ANES POSTPROC EVALon 025 ANES POSTPROC EVAL Normal [facility] ANES PRE-OPon 12-10-2024 ANES PRE-OP Normal [facility] B-HCG SerPl-aCncon HCG.beta subunit Qn m[IU]/mL Normal <5.0 [facility] Comment on above: Order Comment: Speci men Type: BLOOD SPECIMENOrdering Facility: [facility] Address: [address] [place] [address] Result Comment: [place] house Performed By: #### 2 1198-7 ####[facility] LABCLIA [id number] [place] [address] [place] CASE MANAGEMon 12-10-2024 CASE MANAGEM Normal [facility] CBC panel Auto (Bld)on 12-10 Erythrocyte distribution width (RBC) [Ratio] 21.9 % High 11.5-15.0 [facility] Comment on above: Order Comment: Speci men Type: BLOOD SPECIMENOrdering Facility: [facility] Address: [address] [place] [address] Performed By: #### 5 8410-2 ####[facility] LABIA [id number] [place] [address] [place] Hematocrit (Bld) [Volume fraction] 28.0 % Low 36.0-46.0 [facility] Comment on above: Order Comment: Speci men Type: BLOOD SPECIMENOrdering Facility: [facility] Address: [address] [place] [address] Performed By: #### 5 8410-2 ####[facility] LABIA [id number] [place] [address] [place] Hemoglobin (Bld) [Mass/Vol] 8.3 g/dL Low 11.5-15.5 [facility] Comment on above: Order Comment: Speci men Type: BLOOD SPECIMENOrdering Facility: [facility] Address: [address] [place] [address] Performed By: #### 5 8410-2 ####[facility] LABCLIA [id number] [place] [address] [place] MCH (RBC) [Entitic mass] 27.9 pg Normal 26.0-34.0 [facility] Comment on above: Order Comment: Speci men Type: BLOOD SPECIMENOrdering Facility: [facility] Address: [address] [place] [address] Performed By: #### 5 8410-2 ####[facility] LABIA [id number] [place] [address] [place] MCHC (RBC) [Mass/Vol] 29.6 g/dL Low 30.5-36.0 [facility] Comment on above: Order Comment: Speci men Type: BLOOD SPECIMENOrdering Facility: [facility] Address: [address] [place] [address] Performed By: #### 5 8410-2 ####[facility] [id number] [address] MCV (RBC) [Entitic vol] 94.0 fL Normal 80.0-100.0 [facility] Comment on above: Order Comment: Speci men Type: BLOOD SPECIMENOrdering Facility: [facility] Address: [address] [place] [address] Result Comment: MCV is >= 10% variation from the most recent sample, clinical correlation suggested to exclude specimen misidentification. Performed By: #### 5 8410-2 ####[facility] LABIA [id number] [place] [address] [place] Nucleated RBC (Bld) [#/Vol] 0.02 10*3/uL High <0.01 [facility] Comment on above: Order Comment: Speci men Type: BLOOD SPECIMENOrdering Facility: [facility] Address: [address] [place] [address] Performed By: #### 5 8410-2 ####[facility] LABIA [id number] [place] [address] [place] Platelet mean volume (Bld) [Entitic vol] 11.7 fL Normal 9.0-12.7 [facility] Comment on above: Order Comment: Speci men Type: BLOOD SPECIMENOrdering Facility: [facility] Address: [address] [place] [address] Performed By: #### 5 8410-2 ####[facility] LABIA [id number] [place] [address] [place] Platelets (Bld) [#/Vol] 389 10*3/uL Normal 150-400 [facility] Comment on above: Order Comment: Speci men Type: BLOOD SPECIMENOrdering Facility: [facility] Address: [address] [place] [address] Performed By: #### 5 8410-2 ####[facility] LABIA [id number] [place] [address] [place] RBC (Bld) [#/Vol] 2.98 10*6/uL Low 3.90-5.20 [facility] Comment on above: Order Comment: Speci men Type: BLOOD SPECIMENOrdering Facility: [facility] Address: [address] [place] [address] Performed By: #### 5 8410-2 ####[facility] [id number] [place] [address] [place] WBC (Bld) [#/Vol] 6.68 10*3/uL Normal 3.70-11.00 [facility] Comment on above: Order Comment: Speci men Type: BLOOD SPECIMENOrdering Facility: [facility] Address: [address] [place] [address] Result Comment: No c lot detected. Performed By: #### 5 8410-2 ####[facility] LABCLIA [id number] [place] [address] [place] CONSULT PROGon 12-10-2024 CONSULT PROG Normal [facility] CONSULT PROG Normal [facility] CRP SerPl-mCncon 12-10-2024 CRP [Mass/Vol] Normal <0.9 [facility] Comment on above: Order Comment: Speci men Type: BLOOD SPECIMENOrdering Facility: [facility] Address: [address] [place] [address] Result Comment: Poss ible contamination.Corrected result: Previously reported as <0.3 mg/dL on 12/10/2024 at 8:05 AM EDT. Performed By: #### 1 988-5 ####[facility] LABCLIA [id number] [address] [address] [place] Comprehensive metabolic 2000 panelon 12-10-2024 Albumin [Mass/Vol] 3.7 g/dL Low 3.9-4.9 [facility] Comment on above: Order Comment: Speci men Type: BLOOD SPECIMENOrdering Facility: [facility] Address: [address] [place] [address] Performed By: #### 2 4323-8, , 2776- ####[facility] LABCLIA [id number] [place] [address] [place] ALP [Catalytic activity/Vol] 198 U/L High 34-123 [facility] Comment on above: Order Comment: Speci men Type: BLOOD SPECIMENOrdering Facility: [facility] Address: [address] [place] [address] Performed By: #### 2 4323-8, , 27712-25 ####[facility] LABCLIA [id number] [address] [address] [place] ALT [Catalytic activity/Vol] 43 U/L High 7-38 [facility] Comment on above: Order Comment: Speci men Type: BLOOD SPECIMENOrdering Facility: [facility] Address: [address] [place] [address] Performed By: #### 2 4323-8, , 2777- ####[facility] LABCLIA [id number] [address] [place] [address] [place] Anion gap [Moles/Vol] 11 mmol/L Normal 8-15 [facility] Comment on above: Order Comment: Speci men Type: BLOOD SPECIMENOrdering Facility: [facility] Address: [address] [place] [address] Performed By: #### 2 4323-8, 30537-8, 2776-06 ####[facility] LABCLIA [id number] [address] [place] [address] [place] AST [Catalytic activity/Vol] 34 U/L Normal 13-35 [facility] Comment on above: Order Comment: Speci men Type: BLOOD SPECIMENOrdering Facility: [facility] Address: [address] [place] [address] Performed By: #### 2 4323-8, , 2776-06 ####[facility] LABCLIA [id number] [address] [place] [address] [place] Bilirubin [Mass/Vol] 0.6 mg/dL Normal 0.2-1.3 [facility] Comment on above: Order Comment: Speci men Type: BLOOD SPECIMENOrdering Facility: [facility] Address: [address] [place] [address] Performed By: #### 2 4323-8, , 2776-06 ####[facility] LABCLIA [id number] [address] [place] [address] [place] Calcium [Mass/Vol] 9.6 mg/dL Normal 8.5-10.2 [facility] Comment on above: Order Comment: Speci men Type: BLOOD SPECIMENOrdering Facility: [facility] Address: [address] [place] [address] Performed By: #### 2 4323-8, , 2776- ####[facility] LABCLIA [id number] [address] [place] [address] [place] Chloride [Moles/Vol] 103 mmol/L Normal 98-107 [facility] Comment on above: Order Comment: Speci men Type: BLOOD SPECIMENOrdering Facility: [facility] Address: [address] [place], [place] [address] Performed By: #### 2 4323-8, 06208-8, 2777-1 ####[facility] LABIA [id number] [place] [address] [place] CO2 [Moles/Vol] 23 mmol/L Normal 22-30 [facility] Comment on above: Order Comment: Speci men Type: BLOOD SPECIMENOrdering Facility: [facility] Address: [address] [place] [address] Performed By: #### 2 4323-8, 43235-1, 277- ####[facility] LABIA [id number] [place] [address] [place] Creatinine [Mass/Vol] 0.85 mg/dL Normal 0.58-0.96 [facility] Comment on above: Order Comment: Speci men Type: BLOOD SPECIMENOrdering Facility: [facility] Address: [address] [place] [address] Performed By: #### 2 4323-8, 13651-4, 2777 ####[facility] LABIA [id number] [place] [address] [place] Creatinine and Glomerular filtration rate.predicted panel (S/P/Bld) 88 mL/min/1.73m??? Normal >=60 [facility] Comment on above: Order Comment: Speci men Type: BLOOD SPECIMENOrdering Facility: [facility] Address: [address] [place], [place] [address] Result Comment: Zeny mated Glomerular Filtration Rate [...] Performed By: #### 2 4323-8, , 2776-06 ####[facility] LABCLIA [id number] [facility] [place] [employer]ust[employer] MagazinePIONEERS MEMORIAL HOSPITALK [id number] [place] [address] [place] Glucose [Mass/Vol] 119 mg/dL High 74-99 [facility] Comment on above: Order Comment: Speci men Type: BLOOD SPECIMENOrdering Facility: [facility] Address: [address] [place] [address] Result Comment: The [place] Diabetes Association (ADA) provides guidance for cutoff [...] Standards of Medical Care in Diabetes 2016, [place] Diabetes Association. Diabetes Care. 2016.39(Suppl 1). Performed By: #### 2 432-8, , 2776-06 ####[facility] LABCLIA [id number] [facility]ENTERLID [place] [employer] MagazinePIONEERS MEMORIAL HOSPITALK [address] [address] [place] Potassium [Moles/Vol] 4.8 mmol/L Normal 3.7-5.1 [facility] Comment on above: Order Comment: Speci men Type: BLOOD SPECIMENOrdering Facility: [facility] Address: [address] [place] [address] Performed By: #### 2 4323-8, , 2776-06 ####[facility] LABCLIA [id number] [facility] CENTERLID [id number] [address] [place] Protein [Mass/Vol] 7.4 g/dL Normal 6.3-8.0 [facility] Comment on above: Order Comment: Speci men Type: BLOOD SPECIMENOrdering Facility: [facility] Address: [address] [place], [place] [address] Performed By: #### 2 4323-8, , 2776-06 ####[facility]IA [id number] [address] [address] [place] Sodium [Moles/Vol] 137 mmol/L Normal 136-144 [facility] Comment on above: Order Comment: Speci men Type: BLOOD SPECIMENOrdering Facility: [facility] Address: [address] [place], [place] [address] Performed By: #### 2 4323-8, , 2776-06 ####[facility] LABIA [id number] [place] [address] [place] Urea nitrogen [Mass/Vol] 16 mg/dL Normal 7-21 [facility] Comment on above: Order Comment: Speci men Type: BLOOD SPECIMENOrdering Facility: [facility] Address: [address] [place], [place] [address] Performed By: #### 2 4323-8, , 2776-06 ####[facility] LABIA [id number] [place] [address] [place] Magnesium SerPl-mCncon 12-10 Magnesium [Mass/Vol] 2.2 mg/dL Normal 1.7-2.3 [facility] Comment on above: Order Comment: Speci men Type: BLOOD SPECIMENOrdering Facility: [facility] Address: [address] [place], [place] [address] Performed By: #### 2 4323-8, , 2776-06 ####[facility] LABIA [id number] [address] [address] [place] NUTRITIONon 12-10-2024 NUTRITION Normal [facility] PTT, ANTICOAGULANT THERAPYon 12-10-2024 aPTT Coag (PPP) [Time] 50.4 s High 23.0-32.4 [facility] Comment on above: Order Comment: Speci men Type: BLOOD SPECIMENOrdering Facility: [facility] Address: [address] [place] [address] Performed By: #### P TTAC ####[facility] LABCLIA [id number] [place] [address] [place] aPTT Coag (PPP) [Time] 29.2 s Normal 23.0-32.4 [facility] Comment on above: Order Comment: Speci men Type: BLOOD SPECIMENOrdering Facility: [facility] Address: [address] [place] [address] Result Comment: Inte rpret with caution. Sample centrifuged greater than 1 hour from collection time. According to Clinical and Laboratory Standards [place] guidelines, results could be falsely decreased due to heparin neutralization by in vitro release of platelet factor 4. Suggest correlation with clinical findings and redraw if indicated. Performed By: #### P TTAC ####[facility] LABCLIA [id number] [place] [address] [place] Phosphate SerPl-mCncon 12-10 Phosphate [Mass/Vol] 4.3 mg/dL Normal 2.7-4.8 [facility] Comment on above: Order Comment: Speci men Type: BLOOD SPECIMENOrdering Facility: [facility] Address: [address] [place] [address] Performed By: #### 2 4323-8, 26236-4, 2777-1 ####[facility] LABCLIA [id number] [place] [address] [place] TYPE + SCREENon 12-10-2024 ABO O Normal [facility] Comment on above: Order Comment: Speci men Type: BLOOD SPECIMENOrdering Facility: [facility] Address: [address] [place] [address] Performed By: #### T SCR ####[facility] BLOOD BANKCLIA [id number] [place] [address] [place] Rh Nom (Bld) Positive Normal [facility] Comment on above: Order Comment: Speci men Type: BLOOD SPECIMENOrdering Facility: [facility] Address: [address] [place] [address] Performed By: #### T SCR ####[facility] BLOOD BANKCLIA [id number] [place] [address] [place] TYPE AND SCREEN EXPIRATION 12/13/2024 23:59 Normal [facility] Comment on above: Order Comment: Speci men Type: BLOOD SPECIMENOrdering Facility: [facility] Address: [address] [place] [address] Performed By: #### T SCR ####[facility] BLOOD BANKCLIA [id number] [place] [id number] [place] ALLIED HEALTHon 12-09-2024 ALLIED HEALTH Normal [facility] CBC panel Auto (Bld)on 12-09 Erythrocyte distribution width (RBC) [Ratio] 20.9 % High 11.5-15.0 [facility] Comment on above: Order Comment: Speci men Type: BLOOD SPECIMENOrdering Facility: [facility] Address: [address] [place] [address] Performed By: #### 5 8410-2 ####[facility] LABCLIA [id number] [place] [address] [place] Hematocrit (Bld) [Volume fraction] 28.3 % Low 36.0-46.0 [facility] Comment on above: Order Comment: Speci men Type: BLOOD SPECIMENOrdering Facility: [facility] Address: [address] [place] [address] Performed By: #### 5 8410-2 ####[facility] LABCLIA [id number] [place] [address] [place] Hemoglobin (Bld) [Mass/Vol] 8.9 g/dL Low 11.5-15.5 [facility] Comment on above: Order Comment: Speci men Type: BLOOD SPECIMENOrdering Facility: [facility] Address: [address] [place] [address] Performed By: #### 5 8410-2 ####[facility] [id number] [place] [address] [place] MCH (RBC) [Entitic mass] 26.5 pg Normal 26.0-34.0 [facility] Comment on above: Order Comment: Speci men Type: BLOOD SPECIMENOrdering Facility: [facility] Address: [address] [place] [address] Performed By: #### 5 8410-2 ####[facility] [id number] [place] [address] [place] MCHC (RBC) [Mass/Vol] 31.4 g/dL Normal 30.5-36.0 [facility] Comment on above: Order Comment: Speci men Type: BLOOD SPECIMENOrdering Facility: [facility] Address: [address] [place] [address] Performed By: #### 5 8410-2 ####[facility] [id number] [place] [address] [place] MCV (RBC) [Entitic vol] 84.2 fL Normal 80.0-100.0 [facility] Comment on above: Order Comment: Speci men Type: BLOOD SPECIMENOrdering Facility: [facility] Address: [address] [place] [address] Performed By: #### 5 8410-2 ####[facility] [id number] [place] [address] [place] Nucleated RBC (Bld) [#/Vol] 10*3/uL Normal <0.01 [facility] Comment on above: Order Comment: Speci men Type: BLOOD SPECIMENOrdering Facility: [facility] Address: [address] [place] [address] Performed By: #### 5 8410-2 ####[facility] LABCLIA [id number] [facility] [address] [place] [address] [place] Platelet mean volume (Bld) [Entitic vol] 9.2 fL Normal 9.0-12.7 [facility] Comment on above: Order Comment: Speci men Type: BLOOD SPECIMENOrdering Facility: [facility] Address: [address] [place] [address] Performed By: #### 5 8410-2 ####[facility] LABCLIA [id number] [facility] [address] [place] [address] [place] Platelets (Bld) [#/Vol] 423 10*3/uL High 150-400 [facility] Comment on above: Order Comment: Speci men Type: BLOOD SPECIMENOrdering Facility: [facility] Address: [address] [place] [address] Performed By: #### 5 8410-2 ####[facility] LABIA [id number] [facility] [address] [place] [address] [place] RBC (Bld) [#/Vol] 3.36 10*6/uL Low 3.90-5.20 [facility] Comment on above: Order Comment: Speci men Type: BLOOD SPECIMENOrdering Facility: [facility] Address: [address] [place] [address] Performed By: #### 5 8410-2 ####[facility] LABCLIA [id number] [address] [place] [address] [place] WBC (Bld) [#/Vol] 8.36 10*3/uL Normal 3.70-11.00 [facility] Comment on above: Order Comment: Speci men Type: BLOOD SPECIMENOrdering Facility: [facility] Address: [address] [place] [address] Performed By: #### 5 8410-2 ####[facility] LABIA [id number] [facility] [address] [address] [place] Comprehensive metabolic 2000 panelon 12-09-2024 Albumin [Mass/Vol] 3.2 g/dL Low 3.9-4.9 [facility] Comment on above: Order Comment: Speci men Type: BLOOD SPECIMENOrdering Facility: [facility] Address: [address] [place] [address] Performed By: #### 2 4323-8, 89644-4, 2776- ####[facility] LABCLIA [id number] [place] [id number] [place] ALP [Catalytic activity/Vol] 163 U/L High 34-123 [facility] Comment on above: Order Comment: Speci men Type: BLOOD SPECIMENOrdering Facility: [facility] Address: [address] [place] [address] Performed By: #### 2 4323-8, , 2776-06 ####[facility] LABCLIA [id number] [place] [address] [place] ALT [Catalytic activity/Vol] 37 U/L Normal 7-38 [facility] Comment on above: Order Comment: Speci men Type: BLOOD SPECIMENOrdering Facility: [facility] Address: [address] [place] [address] Performed By: #### 2 4323-8, , 2776-06 ####[facility] LABCLIA [id number] [place] [id number] [place] Anion gap [Moles/Vol] 12 mmol/L Normal 8-15 [facility] Comment on above: Order Comment: Speci men Type: BLOOD SPECIMENOrdering Facility: [facility] Address: [address] [place], [place] [address] Performed By: #### 2 4323-8, 93726-6, 2776- ####[facility] LABCLIA [id number] [address] [address] [place] AST [Catalytic activity/Vol] 31 U/L Normal 13-35 [facility] Comment on above: Order Comment: Speci men Type: BLOOD SPECIMENOrdering Facility: [facility] Address: [address] [place] [address] Performed By: #### 2 4323-8, , 2776-06 ####[facility] LABCLIA [id number] [place] [id number] [place] Bilirubin [Mass/Vol] 0.5 mg/dL Normal 0.2-1.3 [facility] Comment on above: Order Comment: Speci men Type: BLOOD SPECIMENOrdering Facility: [facility] Address: [address] [place] [address] Performed By: #### 2 4323-8, , 2776-06 ####[facility] LABCLIA [id number] [place] [address] [place] Calcium [Mass/Vol] 9.2 mg/dL Normal 8.5-10.2 [facility] Comment on above: Order Comment: Speci men Type: BLOOD SPECIMENOrdering Facility: [facility] Address: [address] [place] [address] Performed By: #### 2 4323-8, , 2776-06 ####[facility] LABCLIA [id number] [place] [address] [place] Chloride [Moles/Vol] 101 mmol/L Normal 98-107 [facility] Comment on above: Order Comment: Speci men Type: BLOOD SPECIMENOrdering Facility: [facility] Address: [address] [place] [address] Performed By: #### 2 4323-8, , 2776-06 ####[facility] LABCLIA [id number] [address] [address] [place] CO2 [Moles/Vol] 24 mmol/L Normal 22-30 [facility] Comment on above: Order Comment: Speci men Type: BLOOD SPECIMENOrdering Facility: [facility] Address: [address] [id number] Performed By: #### 2 4323-8, , 2776-06 ####[facility] LABCLIA [id number] [address] [address] [place] Creatinine [Mass/Vol] 0.89 mg/dL Normal 0.58-0.96 [facility] Comment on above: Order Comment: Speci men Type: BLOOD SPECIMENOrdering Facility: [facility] Address: [address] [place] [address] Performed By: #### 2 4323-8, , 2776-06 ####[facility] LABIA [id number] [address] [address] [place] Creatinine and Glomerular filtration rate.predicted panel (S/P/Bld) 84 mL/min/1.73m??? Normal >=60 [facility] Comment on above: Order Comment: Speci men Type: BLOOD SPECIMENOrdering Facility: [facility] Address: [address] [place] [address] Result Comment: Zeny mated Glomerular Filtration Rate [...] Performed By: #### 2 4323-8, , 2776-06 ####[facility] LABIA [id number] [address] [address] [place] Glucose [Mass/Vol] 105 mg/dL High 74-99 [facility] Comment on above: Order Comment: Speci men Type: BLOOD SPECIMENOrdering Facility: [facility] Address: [address] [place] [address] Result Comment: The [place] Diabetes Association (ADA) provides guidance for cutoff [...] Standards of Medical Care in Diabetes 2016, [place]. Diabetes Care. 2016.39(Suppl 1). Performed By: #### 2 4323-8, , 2776-06 ####[facility] LABIA [id number] [place] [address] [place] Potassium [Moles/Vol] 3.9 mmol/L Normal 3.7-5.1 [facility] Comment on above: Order Comment: Speci men Type: BLOOD SPECIMENOrdering Facility: [facility] Address: [address] [place] [address] Performed By: #### 2 4323-8, , 2776-06 ####[facility] LABIA [id number] [place] [address] [place] Protein [Mass/Vol] 6.4 g/dL Normal 6.3-8.0 [facility] Comment on above: Order Comment: Speci men Type: BLOOD SPECIMENOrdering Facility: [facility] Address: [address] [phone] Performed By: #### 2 4323-8, , 2776-06 ####[facility] LABIA [id number] [address] [address] [place] Sodium [Moles/Vol] 137 mmol/L Normal 136-144 [facility] Comment on above: Order Comment: Speci men Type: BLOOD SPECIMENOrdering Facility: [facility] Address: [address] [place] [address] Performed By: #### 2 4323-8, 91807-8, 2777-1 ####[facility] LABIA [id number] [place] [address] [place] Urea nitrogen [Mass/Vol] 17 mg/dL Normal 7-21 [facility] Comment on above: Order Comment: Speci men Type: BLOOD SPECIMENOrdering Facility: [facility] Address: [address] [place] [address] Performed By: #### 2 4323-8, 75471-2, 2776- ####[facility] LABIA [id number] [place] [address] [place] Magnesium SerPl-mCncon 12-09 Magnesium [Mass/Vol] 1.9 mg/dL Normal 1.7-2.3 [facility] Comment on above: Order Comment: Speci men Type: BLOOD SPECIMENOrdering Facility: [facility] Address: [address] [place] [address] Performed By: #### 2 4323-8, 96467-4, 27712-25 ####[facility] [id number] [place] [address] [place] NURSING PROGon 12-09-2024 NURSING PROG Normal [facility] PTT, ANTICOAGULANT THERAPYon 12-09-2024 aPTT Coag (PPP) [Time] 64.5 s High 23.0-32.4 [facility] Comment on above: Order Comment: Speci men Type: BLOOD SPECIMENOrdering Facility: [facility] Address: [address] [place], [place] [id number] Performed By: #### P TTA ####[facility] LABIA [id number] [place] [address] [place] aPTT Coag (PPP) [Time] 44.6 s High 23.0-32.4 [facility] Comment on above: Order Comment: Speci men Type: BLOOD SPECIMENOrdering Facility: [facility] Address: [address] [place] [address] Performed By: #### P TTAC ####[facility] LABCLIA [id number] [address] [address] [place] aPTT Coag (PPP) [Time] 87.9 s High 23.0-32.4 [facility] Comment on above: Order Comment: Speci men Type: BLOOD SPECIMENOrdering Facility: [facility] Address: [address] [place] [address] Performed By: #### P TTAC ####[facility] LABIA [id number] [place] [address] [place] Phosphate SerPl-mCncon 12-09 Phosphate [Mass/Vol] 4.1 mg/dL Normal 2.7-4.8 [facility] Comment on above: Order Comment: Speci men Type: BLOOD SPECIMENOrdering Facility: [facility] Address: [address] [place] [address] Performed By: #### 2 4323-8, 01680-5, 2777-1 ####[facility] LABIA [id number] [place] [address] [place] BRIEF OP NOTon 12-08-2024 BRIEF OP NOT Normal [facility] CBC panel Auto (Bld)on 12-08 Erythrocyte distribution width (RBC) [Ratio] 20.5 % High 11.5-15.0 [facility] Comment on above: Order Comment: Speci men Type: BLOOD SPECIMENOrdering Facility: [facility] Address: [address] [place] [address] Performed By: #### 5 8410-2 ####[facility] LABIA [id number] [place] [id number] [place] Hematocrit (Bld) [Volume fraction] 27.6 % Low 36.0-46.0 [facility] Comment on above: Order Comment: Speci men Type: BLOOD SPECIMENOrdering Facility: [facility] Address: [address] [place] [address] Performed By: #### 5 8410-2 ####[facility] [id number] [place] [address] [place] Hemoglobin (Bld) [Mass/Vol] 8.4 g/dL Low 11.5-15.5 [facility] Comment on above: Order Comment: Speci men Type: BLOOD SPECIMENOrdering Facility: [facility] Address: [address] [place] [address] Performed By: #### 5 8410-2 ####[facility] [id number] [place] [address] [place] MCH (RBC) [Entitic mass] 25.9 pg Low 26.0-34.0 [facility] Comment on above: Order Comment: Speci men Type: BLOOD SPECIMENOrdering Facility: [facility] Address: [address] [place] [address] Performed By: #### 5 8410-2 ####[facility] [id number] [place] [address] [place] MCHC (RBC) [Mass/Vol] 30.4 g/dL Low 30.5-36.0 [facility] Comment on above: Order Comment: Speci men Type: BLOOD SPECIMENOrdering Facility: [facility] Address: [address] [place] [address] Performed By: #### 5 8410-2 ####[facility] [id number] [place] [address] [place] MCV (RBC) [Entitic vol] 85.2 fL Normal 80.0-100.0 [facility] Comment on above: Order Comment: Speci men Type: BLOOD SPECIMENOrdering Facility: [facility] Address: [address] [place] [address] Performed By: #### 5 8410-2 ####[facility] LABCLIA [id number] [address] [address] [place] Nucleated RBC (Bld) [#/Vol] 0.02 10*3/uL High <0.01 [facility] Comment on above: Order Comment: Speci men Type: BLOOD SPECIMENOrdering Facility: [facility] Address: [address] [place] [address] Performed By: #### 5 8410-2 ####[facility] LABIA [id number] [address], [place] [address] [place] Platelet mean volume (Bld) [Entitic vol] 10.3 fL Normal 9.0-12.7 [facility] Comment on above: Order Comment: Speci men Type: BLOOD SPECIMENOrdering Facility: [facility] Address: [address] [place] [address] Performed By: #### 5 8410-2 ####[facility] LABIA [id number] [place] [address] [place] Platelets (Bld) [#/Vol] 423 10*3/uL High 150-400 [facility] Comment on above: Order Comment: Speci men Type: BLOOD SPECIMENOrdering Facility: [facility] Address: [address] [place] [address] Performed By: #### 5 8410-2 ####[facility] LABIA [id number] [place] [address] [place] RBC (Bld) [#/Vol] 3.24 10*6/uL Low 3.90-5.20 [facility] Comment on above: Order Comment: Speci men Type: BLOOD SPECIMENOrdering Facility: [facility] Address: [address] [place] [address] Performed By: #### 5 8410-2 ####[facility] LABIA [id number] [place] [address] [place] WBC (Bld) [#/Vol] 7.37 10*3/uL Normal 3.70-11.00 [facility] Comment on above: Order Comment: Speci men Type: BLOOD SPECIMENOrdering Facility: [facility] Address: [address] [place] [address] Performed By: #### 5 8410-2 ####[facility] LABCLIA [id number] [place] [address] [place] CONSULT PROGon 12-08-2024 CONSULT PROG Normal [facility] CONSULT PROG Normal [facility] Comprehensive metabolic 2000 panelon 12-08-2024 Albumin [Mass/Vol] 3.2 g/dL Low 3.9-4.9 [facility] Comment on above: Order Comment: Speci men Type: BLOOD SPECIMENOrdering Facility: [facility] Address: [address] [place] [address] Performed By: #### 2 4323-8, 50989-8, 2776-06 ####[facility] LABCLIA [id number] [facility] [place] [id number] [place] ALP [Catalytic activity/Vol] 163 U/L High 34-123 [facility] Comment on above: Order Comment: Speci men Type: BLOOD SPECIMENOrdering Facility: [facility] Address: [address] [place] [address] Performed By: #### 2 4323-8, 39901-4, 2776-06 ####[facility] LABCLIA [id number] [facility] [place] [id number] [place] ALT [Catalytic activity/Vol] 41 U/L High 7-38 [facility] Comment on above: Order Comment: Speci men Type: BLOOD SPECIMENOrdering Facility: [facility] Address: [address] [place] [address] Performed By: #### 2 4323-8, 79735-8, 2776- ####[facility] LABCLIA [id number] [place] [address] [place] Anion gap [Moles/Vol] 14 mmol/L Normal 8-15 [facility] Comment on above: Order Comment: Speci men Type: BLOOD SPECIMENOrdering Facility: [facility] Address: [address] [place] [address] Performed By: #### 2 4323-8, 42605-7, 2776-06 ####[facility] LABCLIA [id number] [place] [id number] [place] AST [Catalytic activity/Vol] 30 U/L Normal 13-35 [facility] Comment on above: Order Comment: Speci men Type: BLOOD SPECIMENOrdering Facility: [facility] Address: [address] [place] [address] Performed By: #### 2 4323-8, , 2776-06 ####[facility] LABCLIA [id number] [place] [address] [place] Bilirubin [Mass/Vol] 0.4 mg/dL Normal 0.2-1.3 [facility] Comment on above: Order Comment: Speci men Type: BLOOD SPECIMENOrdering Facility: [facility] Address: [address] [place] [address] Performed By: #### 2 4323-8, , 2776-06 ####[facility] LABCLIA [id number] [place] [address] [place] Calcium [Mass/Vol] 9.3 mg/dL Normal 8.5-10.2 [facility] Comment on above: Order Comment: Speci men Type: BLOOD SPECIMENOrdering Facility: [facility] Address: [address] [place] [address] Performed By: #### 2 4323-8, , 2776-06 ####[facility] LABCLIA [id number] [place] [id number] [place] Chloride [Moles/Vol] 101 mmol/L Normal 98-107 [facility] Comment on above: Order Comment: Speci men Type: BLOOD SPECIMENOrdering Facility: [facility] Address: [address] [place] [address] Performed By: #### 2 4323-8, 73779-5, 2776-06 ####[facility] LABCLIA [id number] [place] [id number] [place] CO2 [Moles/Vol] 22 mmol/L Normal 22-30 [facility] Comment on above: Order Comment: Speci men Type: BLOOD SPECIMENOrdering Facility: [facility] Address: [address] [place] [address] Performed By: #### 2 4323-8, , 2776-06 ####[facility] LABIA [id number] [place] [address] [place] Creatinine [Mass/Vol] 0.91 mg/dL Normal 0.58-0.96 [facility] Comment on above: Order Comment: Speci men Type: BLOOD SPECIMENOrdering Facility: [facility] Address: [address] [place] [address] Performed By: #### 2 4323-8, , 27712-25 ####[facility] LABIA [id number] [place] [id number] [place] Creatinine and Glomerular filtration rate.predicted panel (S/P/Bld) 81 mL/min/1.73m??? Normal >=60 [facility] Comment on above: Order Comment: Speci men Type: BLOOD SPECIMENOrdering Facility: [facility] Address: [address] [place] [address] Result Comment: Zeny mated Glomerular Filtration Rate [...] Performed By: #### 2 4323-8, , 2776-06 ####[facility] LABCLIA [id number] [address] [address] [place] Glucose [Mass/Vol] 112 mg/dL High 74-99 [facility] Comment on above: Order Comment: Speci men Type: BLOOD SPECIMENOrdering Facility: [facility] Address: [address] [place] [address] Result Comment: The [place] Diabetes Association (ADA) provides guidance for cutoff [...] Standards of Medical Care in Diabetes 2016, [employer]. Diabetes Care. 2016.39(Suppl 1). Performed By: #### 2 4323-8, , 2776-06 ####[facility] LABCLIA [id number] [address] [address] [place] Potassium [Moles/Vol] 4.0 mmol/L Normal 3.7-5.1 [facility] Comment on above: Order Comment: Speci men Type: BLOOD SPECIMENOrdering Facility: [facility] Address: [address] [place] [address] Performed By: #### 2 4323-8, , 2776-06 ####[facility] LABIA [id number] [facility] [address] [address] [place] Protein [Mass/Vol] 6.8 g/dL Normal 6.3-8.0 [facility] Comment on above: Order Comment: Speci men Type: BLOOD SPECIMENOrdering Facility: [facility] Address: [address] [place] [address] Performed By: #### 2 4323-8, , 2776-06 ####[facility] LABCLIA [id number] [place] [id number] [place] Sodium [Moles/Vol] 137 mmol/L Normal 136-144 [facility] Comment on above: Order Comment: Speci men Type: BLOOD SPECIMENOrdering Facility: [facility] Address: [address] [place] [address] Performed By: #### 2 4323-8, , 2776-06 ####[facility] LABCLIA [id number] [place] [address] [place] Urea nitrogen [Mass/Vol] 14 mg/dL Normal 7-21 [facility] Comment on above: Order Comment: Speci men Type: BLOOD SPECIMENOrdering Facility: [facility] Address: [address] [place] [address] Performed By: #### 2 4323-8, , 2776-06 ####[facility] LABIA [id number] [place] [address] [place] Fact Xa PPP-aCncon 5 Coagulation factor X activated act Coag Qn (PPP) 0.76 IU/mL High <0.10 [facility] Comment on above: Order Comment: Speci men Type: BLOOD SPECIMENOrdering Facility: [facility] Address: [address] [place] [address] Result Comment: The recommended therapeutic range for treatment of venous and arterial thrombosis with intravenous unfractionated heparin is an anti Xa activity level of 0.3 to 0.7 IU/mL. In patients with concomitant therapy with thrombolytic agents and/or platelet glycoprotein IIb/IIIa antagonists, the recommended therapeutic range is an anti Xa activity level of 0.2 to 0.5 IU/mL. Performed By: #### 3 217-7 ####[facility] LABCLIA [id number] [place] [address] [place] Coagulation factor X activated act Coag Qn (PPP) 0.55 IU/mL High <0.10 [facility] Comment on above: Order Comment: Dora finch Type: BLOOD SPECIMENOrdering Facility: [facility] Address: [address] [place] [address] Result Comment: The recommended therapeutic range for treatment of venous and arterial thrombosis with intravenous unfractionated heparin is an anti Xa activity level of 0.3 to 0.7 IU/mL. In patients with concomitant therapy with thrombolytic agents and/or platelet glycoprotein IIb/IIIa antagonists, the recommended therapeutic range is an anti Xa activity level of 0.2 to 0.5 IU/mL. Performed By: #### P TTAC, 3217-7 ####[facility] LABIA [id number] [place] [address] [place] IR PICC INSERT PHYSICIANon 0 12-08-2024 IR PICC INSERT PHYSICIAN Normal [facility] Magnesium SerPl-mCncon 12-08 Magnesium [Mass/Vol] 1.9 mg/dL Normal 1.7-2.3 [facility] Comment on above: Order Comment: Dora finch Type: BLOOD SPECIMENOrdering Facility: [facility] Address: [address] [place] [address] Performed By: #### 2 4323-8, 82222-5, 2777-1 ####[facility] LABIA [id number] [place] [address] [place] PTT, ANTICOAGULANT THERAPYon 12-08-2024 aPTT Coag (PPP) [Time] 37.0 s High 23.0-32.4 [facility] Comment on above: Order Comment: Dora finch Type: BLOOD SPECIMENOrdering Facility: [facility] Address: [address] [place] [address] Performed By: #### P TTAC ####[facility] LABIA [id number] [place] [address] [facility] [place] aPTT Coag (PPP) [Time] 94.6 s High 23.0-32.4 [facility] Comment on above: Order Comment: Speci men Type: BLOOD SPECIMENOrdering Facility: [facility] Address: [address] [place] [address] Performed By: #### P TTAC ####[facility] LABCLIA [id number] [place] [id number] [place] aPTT Coag (PPP) [Time] 88.0 s High 23.0-32.4 [facility] Comment on above: Order Comment: Speci men Type: BLOOD SPECIMENOrdering Facility: [facility] Address: [address] [place] [address] Performed By: #### P TTAC ####[facility] LABCLIA [id number] [address] [facility] aPTT Coag (PPP) [Time] 56.3 s High 23.0-32.4 [facility] Comment on above: Order Comment: Speci men Type: BLOOD SPECIMENOrdering Facility: [facility] Address: [address] [place] [address] Performed By: #### P TTAC, 3217-7 ####[facility] LABIA [id number] [place] [id number] [place] Phosphate SerPl-mCncon 12-08 Phosphate [Mass/Vol] 4.5 mg/dL Normal 2.7-4.8 [facility] Comment on above: Order Comment: Speci men Type: BLOOD SPECIMENOrdering Facility: [facility] Address: [address] [place] [address] Performed By: #### 2 4323-8, 17749-1, 2777-1 ####[facility] LABCLIA [id number] [place] [id number] [place] ALLIED HEALTHon 12-07-2024 ALLIED HEALTH Normal [facility] CBC panel Auto (Bld)on 12-07 Erythrocyte distribution width (RBC) [Ratio] 20.2 % High 11.5-15.0 [facility] Comment on above: Order Comment: Speci men Type: BLOOD SPECIMENOrdering Facility: [facility] Address: [address] [place] [address] Performed By: #### 5 8410-2 ####[facility] LABIA [id number] [place] [address] [place] Hematocrit (Bld) [Volume fraction] 28.3 % Low 36.0-46.0 [facility] Comment on above: Order Comment: Speci men Type: BLOOD SPECIMENOrdering Facility: [facility] Address: [address] [place] [address] Performed By: #### 5 8410-2 ####[facility] LABIA [id number] [address] [place] Hemoglobin (Bld) [Mass/Vol] 9.0 g/dL Low 11.5-15.5 [facility] Comment on above: Order Comment: Speci men Type: BLOOD SPECIMENOrdering Facility: [facility] Address: [address] [place] [address] Performed By: #### 5 8410-2 ####[facility] LABIA [id number] [place] [address] [place] MCH (RBC) [Entitic mass] 26.5 pg Normal 26.0-34.0 [facility] Comment on above: Order Comment: Speci men Type: BLOOD SPECIMENOrdering Facility: [facility] Address: [address] [place] [address] Performed By: #### 5 8410-2 ####[facility] LABIA [id number] [place] [address] [place] MCHC (RBC) [Mass/Vol] 31.8 g/dL Normal 30.5-36.0 [facility] Comment on above: Order Comment: Speci men Type: BLOOD SPECIMENOrdering Facility: [facility] Address: [address] [place] [address] Performed By: #### 5 8410-2 ####[facility] LABIA [id number] [place] [address] [place] MCV (RBC) [Entitic vol] 83.2 fL Normal 80.0-100.0 [facility] Comment on above: Order Comment: Speci men Type: BLOOD SPECIMENOrdering Facility: [facility] Address: [address] [place] [address] Performed By: #### 5 8410-2 ####[facility] [id number] [place] [address] [place] Nucleated RBC (Bld) [#/Vol] 10*3/uL Normal <0.01 [facility] Comment on above: Order Comment: Speci men Type: BLOOD SPECIMENOrdering Facility: [facility] Address: [address] [place] [address] Performed By: #### 5 8410-2 ####[facility] [id number] [place] [address] [place] Platelet mean volume (Bld) [Entitic vol] 10.0 fL Normal 9.0-12.7 [facility] Comment on above: Order Comment: Speci men Type: BLOOD SPECIMENOrdering Facility: [facility] Address: [address] [place] [address] Performed By: #### [id number] 8410-2 ####[facility] [id number] [place] [address] [place] Platelets (Bld) [#/Vol] 414 10*3/uL High 150-400 [facility] Comment on above: Order Comment: Speci men Type: BLOOD SPECIMENOrdering Facility: [facility] Address: [address] [place] [address] Performed By: #### 5 8410-2 ####[facility] LABCLIA [id number] [address] [address] [place] RBC (Bld) [#/Vol] 3.40 10*6/uL Low 3.90-5.20 [facility] Comment on above: Order Comment: Speci men Type: BLOOD SPECIMENOrdering Facility: [facility] Address: [address] [place] [address] Performed By: #### 5 8410-2 ####[facility] LABIA [id number] [address] [address] [place] WBC (Bld) [#/Vol] 7.16 10*3/uL Normal 3.70-11.00 [facility] Comment on above: Order Comment: Speci men Type: BLOOD SPECIMENOrdering Facility: [facility] Address: [address] [place] [address] Performed By: #### 5 8410-2 ####[facility] LABIA [id number] [address] [address] [place] CONSULT PROGon 12-07-2024 CONSULT PROG Normal [facility] Comprehensive metabolic 2000 panelon 12-07-2024 Albumin [Mass/Vol] 3.3 g/dL Low 3.9-4.9 [facility] Comment on above: Order Comment: Speci men Type: BLOOD SPECIMENOrdering Facility: [facility] Address: [address] [place] [address] Performed By: #### 2 4323-8, 98870-0, 2777-1 ####[facility] LABIA [id number] [place] [id number] [place] ALP [Catalytic activity/Vol] 185 U/L High 34-123 [facility] Comment on above: Order Comment: Speci men Type: BLOOD SPECIMENOrdering Facility: [facility] Address: [address] [place] [address] Performed By: #### 2 4323-8, , 2776-06 ####[facility] LABCLIA [id number] [address] [address] [place] ALT [Catalytic activity/Vol] 53 U/L High 7-38 [facility] Comment on above: Order Comment: Speci men Type: BLOOD SPECIMENOrdering Facility: [facility] Address: [address] [place] [address] Performed By: #### 2 4323-8, , 2776-06 ####[facility] LABCLIA [id number] [place] [address] [place] Anion gap [Moles/Vol] 16 mmol/L High 8-15 [facility] Comment on above: Order Comment: Speci men Type: BLOOD SPECIMENOrdering Facility: [facility] Address: [address] [place] [address] Performed By: #### 2 432-8, , 2776-06 ####[facility] LABCLIA [id number] [place] [address] [place] AST [Catalytic activity/Vol] 40 U/L High 13-35 [facility] Comment on above: Order Comment: Speci men Type: BLOOD SPECIMENOrdering Facility: [facility] Address: [address] [place] [address] Performed By: #### 2 4323-8, , 2776-06 ####[facility] LABCLIA [id number] [place] [address] [place] Bilirubin [Mass/Vol] 0.6 mg/dL Normal 0.2-1.3 [facility] Comment on above: Order Comment: Speci men Type: BLOOD SPECIMENOrdering Facility: [facility] Address: [address] [place] [address] Performed By: #### 2 4323-8, , 2776-06 ####[facility] LABCLIA [id number] [address] [place] [address] [place] Calcium [Mass/Vol] 9.0 mg/dL Normal 8.5-10.2 [facility] Comment on above: Order Comment: Speci men Type: BLOOD SPECIMENOrdering Facility: [facility] Address: [address] [place] [address] Performed By: #### 2 4323-8, , 2776-06 ####[facility] LABCLIA [id number] [address] [place] [address] [place] Chloride [Moles/Vol] 101 mmol/L Normal 98-107 [facility] Comment on above: Order Comment: Speci men Type: BLOOD SPECIMENOrdering Facility: [facility] Address: [address] [place] [address] Performed By: #### 2 4323-8, , 2776-06 ####[facility] LABCLIA [id number] [address], [facility] [place] CO2 [Moles/Vol] 21 mmol/L Low 22-30 [facility] Comment on above: Order Comment: Speci men Type: BLOOD SPECIMENOrdering Facility: [facility] Address: [address] [place] [address] Performed By: #### 2 4323-8, , 2776-06 ####[facility] LABCLIA [id number] [address] [place] [address] [place] Creatinine [Mass/Vol] 1.04 mg/dL High 0.58-0.96 [facility] Comment on above: Order Comment: Speci men Type: BLOOD SPECIMENOrdering Facility: [facility] Address: [address] [place], [place] [address] Performed By: #### 2 4323-8, , 2776-06 ####[facility] LABCLIA [id number] [address] [place] [address] [place] Creatinine and Glomerular filtration rate.predicted panel (S/P/Bld) 69 mL/min/1.73m??? Normal >=60 [facility] Comment on above: Order Comment: Dora finch Type: BLOOD SPECIMENOrdering Facility: [facility] Address: [address] [place] [address] Result Comment: Zeny mated Glomerular Filtration Rate [...] GFR. Performed By: #### 2 4323-8, , 2776- ####[facility] LABCLIA [id number] [place] [address] [place] Glucose [Mass/Vol] 178 mg/dL High 74-99 [facility] Comment on above: Order Comment: Dora finch Type: BLOOD SPECIMENOrdering Facility: [facility] Address: [address] [place] [address] Result Comment: The [place] [employer] (ADA) provides guidance for cutoff [...] Standards of Medical Care in Diabetes 2016, [place]. Diabetes Care. 2016.39(Suppl 1). Performed By: #### 2 4323-8, 17738-8, 2776- ####[facility] LABIA [id number] [address] [address] [place] Potassium [Moles/Vol] 3.3 mmol/L Low 3.7-5.1 [facility] Comment on above: Order Comment: Speci men Type: BLOOD SPECIMENOrdering Facility: [facility] Address: [address] [place] [address] Performed By: #### 2 4323-8, , 2776-06 ####[facility] LABCLIA [id number] [place] [address] [place] Protein [Mass/Vol] 7.0 g/dL Normal 6.3-8.0 [facility] Comment on above: Order Comment: Speci men Type: BLOOD SPECIMENOrdering Facility: [facility] Address: [address] [place] [address] Performed By: #### 2 4323-8, , 2776-06 ####[facility] LABCLIA [id number] [place] [address] [place] Sodium [Moles/Vol] 138 mmol/L Normal 136-144 [facility] Comment on above: Order Comment: Speci men Type: BLOOD SPECIMENOrdering Facility: [facility] Address: [address] [place] [address] Performed By: #### 2 4323-8, , 2776-06 ####[facility] LABCLIA [id number] [place] [address] [place] Urea nitrogen [Mass/Vol] 11 mg/dL Normal 7-21 [facility] Comment on above: Order Comment: Speci men Type: BLOOD SPECIMENOrdering Facility: [facility] Address: [address] [place], [place] [address] Performed By: #### 2 4323-8, , 2776-06 ####[facility] LABCLIA [id number] [address] [address] [place] Fact Xa PPP-aCncon 5 Coagulation factor X activated act Coag Qn (PPP) 0.31 IU/mL High <0.10 [facility] Comment on above: Order Comment: Speci men Type: BLOOD SPECIMENOrdering Facility: [facility] Address: [address] [place] [address] Result Comment: The recommended therapeutic range for treatment of venous and arterial thrombosis with intravenous unfractionated heparin is an anti Xa activity level of 0.3 to 0.7 IU/mL. In patients with concomitant therapy with thrombolytic agents and/or platelet glycoprotein IIb/IIIa antagonists, the recommended therapeutic range is an anti Xa activity level of 0.2 to 0.5 IU/mL. Performed By: #### 3 217-7 ####[facility] LABIA [id number] [place] [address] [place] Magnesium SerPl-mCncon 12-07 Magnesium [Mass/Vol] 2.0 mg/dL Normal 1.7-2.3 [facility] Comment on above: Order Comment: Speci men Type: BLOOD SPECIMENOrdering Facility: [facility] Address: [address] [place] [address] Performed By: #### 2 4323-8, 59380-1, 2777-1 ####[facility] LABIA [id number] [place] [address] [place] NUTRITIONon 12-07-2024 NUTRITION Normal [facility] PTT, ANTICOAGULANT THERAPYon 12-07-2024 aPTT Coag (PPP) [Time] 47.4 s High 23.0-32.4 [facility] Comment on above: Order Comment: Speci men Type: BLOOD SPECIMENOrdering Facility: [facility] Address: [address] [place] [address] Performed By: #### P TTAC ####[facility] LABIA [id number] [address] [place] aPTT Coag (PPP) [Time] 41.6 s High 23.0-32.4 [facility] Comment on above: Order Comment: Speci men Type: BLOOD SPECIMENOrdering Facility: [facility] Address: [address] [place] [address] Result Comment: Inte rpret with caution. Sample centrifuged greater than 1 hour from collection time. According to Clinical and Laboratory Standards [place] guidelines, results could be falsely decreased due to heparin neutralization by in vitro release of platelet factor 4. Suggest correlation with clinical findings and redraw if indicated. Performed By: #### P TTAC ####[facility] LABCLIA [id number] [place] [address] [place] Phosphate SerPl-mCncon 12-07 Phosphate [Mass/Vol] 4.5 mg/dL Normal 2.7-4.8 [facility] Comment on above: Order Comment: Speci men Type: BLOOD SPECIMENOrdering Facility: [facility] Address: [address] [place] [address] Performed By: #### 2 4323-8, 22403-4, 2777-1 ####[facility] LABCLIA [id number] [place] [address] [place] ALLIED HEALTHon 12-06-2024 ALLIED HEALTH Normal [facility] ALLIED HEALTH Normal [facility] ANES POSTPROC EVALon 025 ANES POSTPROC EVAL Normal [facility] ANES PRE-OPon 12-06-2024 ANES PRE-OP Normal [facility] CASE MANAGEMon 12-06-2024 CASE MANAGEM Normal [facility] CBC panel Auto (Bld)on 12-06 Erythrocyte distribution width (RBC) [Ratio] 19.8 % High 11.5-15.0 [facility] Comment on above: Order Comment: Speci men Type: BLOOD SPECIMENOrdering Facility: [facility] Address: [address] [place] [address] Performed By: #### 5 8410-2 ####[facility] LABCLIA [id number] [place] [id number] [place] Hematocrit (Bld) [Volume fraction] 19.8 % Low 36.0-46.0 [facility] Comment on above: Order Comment: Speci men Type: BLOOD SPECIMENOrdering Facility: [facility] Address: [address] [place] [address] Performed By: #### 5 8410-2 ####[facility] [id number] [place] [address] [place] Hemoglobin (Bld) [Mass/Vol] 6.3 g/dL Low 11.5-15.5 [facility] Comment on above: Order Comment: Speci men Type: BLOOD SPECIMENOrdering Facility: [facility] Address: [address] [place] [address] Performed By: #### 5 8410-2 ####[facility] [id number] [place] [address] [place] MCH (RBC) [Entitic mass] 26.1 pg Normal 26.0-34.0 [facility] Comment on above: Order Comment: Speci men Type: BLOOD SPECIMENOrdering Facility: [facility] Address: [address] [place] [address] Performed By: #### 5 8410-2 ####[facility] [id number] [address] [place] MCHC (RBC) [Mass/Vol] 31.8 g/dL Normal 30.5-36.0 [facility] Comment on above: Order Comment: Speci men Type: BLOOD SPECIMENOrdering Facility: [facility] Address: [address] [place] [address] Performed By: #### 5 8410-2 ####[facility] [id number] [place] [address] [place] MCV (RBC) [Entitic vol] 82.2 fL Normal 80.0-100.0 [facility] Comment on above: Order Comment: Speci men Type: BLOOD SPECIMENOrdering Facility: [facility] Address: [address] [place] [address] Performed By: #### 5 8410-2 ####[facility] LABCLIA [id number] [facility] [address] [place] [address] [place] Nucleated RBC (Bld) [#/Vol] 10*3/uL Normal <0.01 [facility] Comment on above: Order Comment: Speci men Type: BLOOD SPECIMENOrdering Facility: [facility] Address: [address] [place] [address] Performed By: #### 5 8410-2 ####[facility] LABCLIA [id number] [address] [place] [address] [place] Platelet mean volume (Bld) [Entitic vol] 8.9 fL Low 9.0-12.7 [facility] Comment on above: Order Comment: Speci men Type: BLOOD SPECIMENOrdering Facility: [facility] Address: [address] [place] [address] Performed By: #### 5 8410-2 ####[facility] LABIA [id number] [address], [facility] [place] Platelets (Bld) [#/Vol] 496 10*3/uL High 150-400 [facility] Comment on above: Order Comment: Speci men Type: BLOOD SPECIMENOrdering Facility: [facility] Address: [address] [place] [address] Performed By: #### 5 8410-2 ####[facility] LABIA [id number] [address] [place] [address] [place] RBC (Bld) [#/Vol] 2.41 10*6/uL Low 3.90-5.20 [facility] Comment on above: Order Comment: Speci men Type: BLOOD SPECIMENOrdering Facility: [facility] Address: [address] [place], [place] [address] Performed By: #### 5 8410-2 ####[facility] LABIA [id number] [facility] [place] [address] [place] WBC (Bld) [#/Vol] 8.40 10*3/uL Normal 3.70-11.00 [facility] Comment on above: Order Comment: Speci men Type: BLOOD SPECIMENOrdering Facility: [facility] Address: [address] [place] [address] Performed By: #### 5 8410-2 ####[facility] LABCLIA [id number] [place] [address] [place] Erythrocyte distribution width (RBC) [Ratio] 19.0 % High 11.5-15.0 [facility] Comment on above: Order Comment: Speci men Type: BLOOD SPECIMENOrdering Facility: [facility] Address: [address] [place] [address] Performed By: #### 5 8410-2 ####[facility] LABCLIA [id number] [place] [address] [place] Hematocrit (Bld) [Volume fraction] 29.1 % Low 36.0-46.0 [facility] Comment on above: Order Comment: Speci men Type: BLOOD SPECIMENOrdering Facility: [facility] Address: [address] [place] [address] Performed By: #### 5 8410-2 ####[facility] LABCLIA [id number] [place] [address] [place] Hemoglobin (Bld) [Mass/Vol] 9.1 g/dL Low 11.5-15.5 [facility] Comment on above: Order Comment: Speci men Type: BLOOD SPECIMENOrdering Facility: [facility] Address: [address] [place] [address] Performed By: #### 5 8410-2 ####[facility] LABCLIA [id number] [facility] [place] [address] [place] MCH (RBC) [Entitic mass] 25.7 pg Low 26.0-34.0 [facility] Comment on above: Order Comment: Speci men Type: BLOOD SPECIMENOrdering Facility: [facility] Address: [address] [place] [address] Performed By: #### 5 8410-2 ####[facility] [id number] [address] [facility] MCHC (RBC) [Mass/Vol] 31.3 g/dL Normal 30.5-36.0 [facility] Comment on above: Order Comment: Speci men Type: BLOOD SPECIMENOrdering Facility: [facility] Address: [address] [place] [address] Performed By: #### 5 8410-2 ####[facility] [id number] [place] [address] [place] MCV (RBC) [Entitic vol] 82.2 fL Normal 80.0-100.0 [facility] Comment on above: Order Comment: Speci men Type: BLOOD SPECIMENOrdering Facility: [facility] Address: [address] [place] [address] Performed By: #### 5 8410-2 ####[facility] [id number] [place] [address] [place] Nucleated RBC (Bld) [#/Vol] 10*3/uL Normal <0.01 [facility] Comment on above: Order Comment: Speci men Type: BLOOD SPECIMENOrdering Facility: [facility] Address: [address] [place] [address] Performed By: #### 5 8410-2 ####[facility] [id number] [place] [address] [place] Platelet mean volume (Bld) [Entitic vol] 9.3 fL Normal 9.0-12.7 [facility] Comment on above: Order Comment: Speci men Type: BLOOD SPECIMENOrdering Facility: [facility] Address: [address] [place] [address] Performed By: #### 5 8410-2 ####[facility] LABCLIA [id number] [place] [address] [place] Platelets (Bld) [#/Vol] 474 10*3/uL High 150-400 [facility] Comment on above: Order Comment: Speci men Type: BLOOD SPECIMENOrdering Facility: [facility] Address: [address] [place] [address] Performed By: #### 5 8410-2 ####[facility] LABCLIA [id number] [place] [address] [place] RBC (Bld) [#/Vol] 3.54 10*6/uL Low 3.90-5.20 [facility] Comment on above: Order Comment: Speci men Type: BLOOD SPECIMENOrdering Facility: [facility] Address: [address] [place] [address] Performed By: #### 5 8410-2 ####[facility] LABIA [id number] [place] [address] [place] WBC (Bld) [#/Vol] 8.80 10*3/uL Normal 3.70-11.00 [facility] Comment on above: Order Comment: Speci men Type: BLOOD SPECIMENOrdering Facility: [facility] Address: [address] [place] [address] Performed By: #### 5 8410-2 ####[facility] LABIA [id number] [place] [address] [place] CK SerPl-cCncon 12-06-2024 CK [Catalytic activity/Vol] 9 U/L Low 42-196 [facility] Comment on above: Order Comment: Speci men Type: BLOOD SPECIMENOrdering Facility: [facility] Address: [address] [place] [address] Performed By: #### 2 157-6, 44842-5, 21737-3, 2777-1 ####[facility] LABIA [id number] [address] [address] [place] CONSULT PROGon 12-06-2024 CONSULT PROG Normal [facility] Comprehensive metabolic 2000 panelon 12-06-2024 Albumin [Mass/Vol] 3.3 g/dL Low 3.9-4.9 [facility] Comment on above: Order Comment: Speci men Type: BLOOD SPECIMENOrdering Facility: [facility] Address: [address] [place], [place] [address] Performed By: #### 2 157-6, 04810-3, 91232-3, 2776- ####[facility] [id number] [place] [address] [place] ALP [Catalytic activity/Vol] 191 U/L High 34-123 [facility] Comment on above: Order Comment: Speci men Type: BLOOD SPECIMENOrdering Facility: [facility] Address: [address] [place], [place] [address] Performed By: #### 2 157-6, 87806-5, 99232-3, 277- ####[facility] [id number] [place] [address] [place] ALT [Catalytic activity/Vol] 44 U/L High 7-38 [facility] Comment on above: Order Comment: Speci men Type: BLOOD SPECIMENOrdering Facility: [facility] Address: [address] [place], [place] [address] Performed By: #### 2 157-6, 65293-9, 11410-1, 2777-1 ####[facility] [id number] [place] [address] [place] Anion gap [Moles/Vol] 12 mmol/L Normal 8-15 [facility] Comment on above: Order Comment: Speci men Type: BLOOD SPECIMENOrdering Facility: [facility] Address: [address] [place], [place] [address] Performed By: #### 2 157-6, 39410-0, , 2776-06 ####[facility] LABCLIA [id number] [address] [address] [place] AST [Catalytic activity/Vol] 36 U/L High 13-35 [facility] Comment on above: Order Comment: Speci men Type: BLOOD SPECIMENOrdering Facility: [facility] Address: [address] [place] [address] Performed By: #### 2 157-6, 76157-8, , 2776-06 ####[facility] LABIA [id number] [address] [address] [place] Bilirubin [Mass/Vol] 0.7 mg/dL Normal 0.2-1.3 [facility] Comment on above: Order Comment: Speci men Type: BLOOD SPECIMENOrdering Facility: [facility] Address: [address] [place] [address] Performed By: #### 2 157-6, 33126-7, , 2776-06 ####[facility] LABIA [id number] [place] [id number] [place] Calcium [Mass/Vol] 8.8 mg/dL Normal 8.5-10.2 [facility] Comment on above: Order Comment: Speci men Type: BLOOD SPECIMENOrdering Facility: [facility] Address: [address] [place] [address] Performed By: #### 2 157-6, 37958-7, , 2776-06 ####[facility] LABIA [id number] [place] [address] [place] Chloride [Moles/Vol] 102 mmol/L Normal 98-107 [facility] Comment on above: Order Comment: Speci men Type: BLOOD SPECIMENOrdering Facility: [facility] Address: [address] [place] [address] Performed By: #### 2 157-6, 78701-4, , 2776-06 ####[facility] LABCLIA [id number] [address] [address] [place] CO2 [Moles/Vol] 22 mmol/L Normal 22-30 [facility] Comment on above: Order Comment: Speci men Type: BLOOD SPECIMENOrdering Facility: [facility] Address: [address] [place] [address] Performed By: #### 2 157-6, 35538-0, , 2776-06 ####[facility] LABIA [id number] [address] [address] [place] Creatinine [Mass/Vol] 0.95 mg/dL Normal 0.58-0.96 [facility] Comment on above: Order Comment: Speci men Type: BLOOD SPECIMENOrdering Facility: [facility] Address: [address] [place] [address] Performed By: #### 2 157-6, 14872-5, , 2776-06 ####[facility] LABIA [id number] [place] [id number] [place] Creatinine and Glomerular filtration rate.predicted panel (S/P/Bld) 77 mL/min/1.73m??? Normal >=60 [facility] Comment on above: Order Comment: Speci men Type: BLOOD SPECIMENOrdering Facility: [facility] Address: [address] [place] [address] Result Comment: Zeny mated Glomerular Filtration Rate [...] actual GFR. Performed By: #### 2 157-6, 48169-0, 69445-8, [id number]- ####[facility] [id number] [address] [address] [place] Glucose [Mass/Vol] 136 mg/dL High 74-99 [facility] Comment on above: Order Comment: Speci men Type: BLOOD SPECIMENOrdering Facility: [facility] Address: [address] [place] [address] Result Comment: The [place] [employer] (ADA) provides guidance for cutoff [...] Standards of Medical Care in Diabetes 2016, [place] Diabetes Association. Diabetes Care. 2016.39(Suppl 1). Performed By: #### 2 157-6, 30689-5, 26574-3, 2777- ####[facility] LABCLIA [id number] [place] [address] [place] Potassium [Moles/Vol] 3.8 mmol/L Normal 3.7-5.1 [facility] Comment on above: Order Comment: Speci men Type: BLOOD SPECIMENOrdering Facility: [facility] Address: [address] [place] [address] Performed By: #### 2 157-6, 22311-3, , 2777-1 ####[facility] LABCLIA [id number] [place] [address] [place] Protein [Mass/Vol] 6.6 g/dL Normal 6.3-8.0 [facility] Comment on above: Order Comment: Speci men Type: BLOOD SPECIMENOrdering Facility: [facility] Address: [address] [place], [place] [address] Performed By: #### 2 157-6, 75976-9, 69243-2, 2776-06 ####[facility] LABCLIA [id number] [place] [address] [place] Sodium [Moles/Vol] 136 mmol/L Normal 136-144 [facility] Comment on above: Order Comment: Speci men Type: BLOOD SPECIMENOrdering Facility: [facility] Address: [address] [place] [address] Performed By: #### 2 157-6, 51758-4, 83038-1, 2776- ####[facility] LABIA [id number] [place] [address] [place] Urea nitrogen [Mass/Vol] 12 mg/dL Normal 7-21 [facility] Comment on above: Order Comment: Speci men Type: BLOOD SPECIMENOrdering Facility: [facility] Address: [address] [place] [address] Performed By: #### 2 157-6, 67059-0, 28524-4, 2776-06 ####[facility] [id number] [place] [address] [place] Fact Xa PPP-aCncon 5 Coagulation factor X activated act Coag Qn (PPP) 0.64 IU/mL High <0.10 [facility] Comment on above: Order Comment: Speci men Type: BLOOD SPECIMENOrdering Facility: [facility] Address: [address] [place] [address] Result Comment: The recommended therapeutic range for treatment of venous and arterial thrombosis with intravenous unfractionated heparin is an anti Xa activity level of 0.3 to 0.7 IU/mL. In patients with concomitant therapy with thrombolytic agents and/or platelet glycoprotein IIb/IIIa antagonists, the recommended therapeutic range is an anti Xa activity level of 0.2 to 0.5 IU/mL. Performed By: #### 3 217-7 ####[facility] LABIA [id number] [place] [address] [place] Coagulation factor X activated act Coag Qn (PPP) 0.48 IU/mL High <0.10 [facility] Comment on above: Order Comment: Dora finch Type: BLOOD SPECIMENOrdering Facility: [facility] Address: [address] [place] [address] Result Comment: The recommended therapeutic range for treatment of venous and arterial thrombosis with intravenous unfractionated heparin is an anti Xa activity level of 0.3 to 0.7 IU/mL. In patients with concomitant therapy with thrombolytic agents and/or platelet glycoprotein IIb/IIIa antagonists, the recommended therapeutic range is an anti Xa activity level of 0.2 to 0.5 IU/mL. Performed By: #### 3 217-7 ####[facility] LABCLIA [id number] [place] [address] [place] HISTORY PHYSICALon HISTORY PHYSICAL Normal [facility] Magnesium SerPl-mCncon 12-06 Magnesium [Mass/Vol] 1.5 mg/dL Low 1.7-2.3 [facility] Comment on above: Order Comment: Dora finch Type: BLOOD SPECIMENOrdering Facility: [facility] Address: [address] [place] [address] Performed By: #### 2 157-6, 95235-3, 89186-6, 2777-1 ####[facility] LABIA [id number] [place] [address] [place] NUTRITIONon 12-06-2024 NUTRITION Normal [facility] PT EDon 12-06-2024 PT ED Normal [facility] PT panel Coag (PPP)on 2024 INR Coag (PPP) [Relative time] 1.1 {INR} Normal 0.9-1.3 [facility] Comment on above: Order Comment: Dora finch Type: BLOOD SPECIMENOrdering Facility: [facility] Address: [address] [place] [address] Result Comment: Yamileth min K Antagonist (VKA) Therapeutic Range: INR 2 to 3 (Target INR of 2.5)Note: For patients treated with VKA drugs, such as warfarin, the [employer] 2012 Guideline recommends [...] of 2.5 to 3.5 (target INR of 3).Rufnia POND, et al. Chest 2012, 141:7S-47SNishjavier RA, et al. JAC 2017, 70: 252-289 Performed By: #### 3 4528-0, 94652-0 ####[facility] LABIA [id number] [place] [address] [place] PT Coag (PPP) [Time] 11.9 s Normal 9.7-13.0 [facility] Comment on above: Order Comment: Dora finch Type: BLOOD SPECIMENOrdering Facility: [facility] Address: [address] [place] [address] Performed By: #### 3 4528-0, 08616-9 ####[facility] [id number] [place] [address] [place] PTT, ANTICOAGULANT THERAPYon 12-06-2024 aPTT Coag (PPP) [Time] 58.4 s High 23.0-32.4 [facility] Comment on above: Order Comment: Dora finch Type: BLOOD SPECIMENOrdering Facility: [facility] Address: [address] [place] [address] Performed By: #### P TTAC ####[facility] LABIA [id number] [place] [address] [place] Phosphate SerPl-mCncon 12-06 Phosphate [Mass/Vol] 2.8 mg/dL Normal 2.7-4.8 [facility] Comment on above: Order Comment: Speci men Type: BLOOD SPECIMENOrdering Facility: [facility] Address: [address] [place] [address] Performed By: #### 2 157-6, 14459-9, 63210-0, 2777-1 ####[facility] LABCLIA [id number] [place] [address] [place] aPTT PPPon 12-06-2024 aPTT Coag (PPP) [Time] 53.0 s High 23.0-32.4 [facility] Comment on above: Order Comment: Speci men Type: BLOOD SPECIMENOrdering Facility: [facility] Address: [address] [place] [address] Performed By: #### 3 4528-0, 41015-0 ####[facility] LABCLIA [id number] [place] [address] [place] ALLIED HEALTHon 12-05-2024 ALLIED HEALTH Normal [facility] ANES POSTPROC EVALon 025 ANES POSTPROC EVAL Normal [facility] ANES PRE-OPon 12-05-2024 ANES PRE-OP Normal [facility] CASE MANAGEMon 12-05-2024 CASE MANAGEM Normal [facility] CBC panel Auto (Bld)on 12-05 Hematocrit (Bld) [Volume fraction] 29.6 % Low 36.0-46.0 [facility] Comment on above: Order Comment: Speci men Type: BLOOD SPECIMENOrdering Facility: [facility] Address: [address] [place] [address] Performed By: #### 5 8410-2 ####[facility] LABCLIA [id number] [place] [id number] [place] Hemoglobin (Bld) [Mass/Vol] 9.0 g/dL Low 11.5-15.5 [facility] Comment on above: Order Comment: Speci men Type: BLOOD SPECIMENOrdering Facility: [facility] Address: [address] [place] [address] Performed By: #### 5 8410-2 ####[facility] LABCLIA [id number] [address], [place] [address] [place] MCH (RBC) [Entitic mass] 25.4 pg Low 26.0-34.0 [facility] Comment on above: Order Comment: Speci men Type: BLOOD SPECIMENOrdering Facility: [facility] Address: [address] [place] [address] Performed By: #### 5 8410-2 ####[facility] LABCLIA [id number] [address], [place] [address] [place] MCV (RBC) [Entitic vol] 83.4 fL Normal 80.0-100.0 [facility] Comment on above: Order Comment: Speci men Type: BLOOD SPECIMENOrdering Facility: [facility] Address: [address] [place] [address] Performed By: #### 5 8410-2 ####[facility] LABIA [id number] [address], [place] [address] [place] Nucleated RBC (Bld) [#/Vol] 10*3/uL Normal <0.01 [facility] Comment on above: Order Comment: Speci men Type: BLOOD SPECIMENOrdering Facility: [facility] Address: [address] [place] [address] Performed By: #### 5 8410-2 ####[facility] LABCLIA [id number] [place] [address] [place] Platelets (Bld) [#/Vol] 438 10*3/uL High 150-400 [facility] Comment on above: Order Comment: Speci men Type: BLOOD SPECIMENOrdering Facility: [facility] Address: [address] [place] [address] Performed By: #### 5 8410-2 ####[facility] LABCLIA [id number] [address] [place] [address] [place] RBC (Bld) [#/Vol] 3.55 10*6/uL Low 3.90-5.20 [facility] Comment on above: Order Comment: Speci men Type: BLOOD SPECIMENOrdering Facility: [facility] Address: [address] [place] [address] Performed By: #### 5 8410-2 ####[facility] LABCLIA [id number] [place] [address] [place] WBC (Bld) [#/Vol] 6.92 10*3/uL Normal 3.70-11.00 [facility] Comment on above: Order Comment: Speci men Type: BLOOD SPECIMENOrdering Facility: [facility] Address: [address] [place] [address] Performed By: #### 5 8410-2 ####[facility] LABCLIA [id number] [place] [address] [place] CONSULT PROGon 12-05-2024 CONSULT PROG Normal [facility] CONSULT PROG Normal [facility] CONSULT PROG Normal [facility] Comprehensive metabolic 2000 panelon 12-05-2024 Albumin [Mass/Vol] 3.4 g/dL Low 3.9-4.9 [facility] Comment on above: Order Comment: Speci men Type: BLOOD SPECIMENOrdering Facility: [facility] Address: [address] [place] [address] Performed By: #### 2 4323-8, , 2776-1 ####[facility] LABCLIA [id number] [place] [id number] [place] ALP [Catalytic activity/Vol] 189 U/L High 34-123 [facility] Comment on above: Order Comment: Speci men Type: BLOOD SPECIMENOrdering Facility: [facility] Address: [address] [place] [address] Performed By: #### 2 4323-8, 64062-3, 2777-1 ####[facility] LABCLIA [id number] [address] [place] [address] [place] ALT [Catalytic activity/Vol] 41 U/L High 7-38 [facility] Comment on above: Order Comment: Speci men Type: BLOOD SPECIMENOrdering Facility: [facility] Address: [address] [place] [address] Performed By: #### 2 4323-8, , 2776-06 ####[facility] LABCLIA [id number] [address] [place] [address] [place] Anion gap [Moles/Vol] 12 mmol/L Normal 8-15 [facility] Comment on above: Order Comment: Speci men Type: BLOOD SPECIMENOrdering Facility: [facility] Address: [address] [place] [address] Performed By: #### 2 4323-8, , 2776-06 ####[facility] LABCLIA [id number] [place] [id number] [place] AST [Catalytic activity/Vol] 33 U/L Normal 13-35 [facility] Comment on above: Order Comment: Speci men Type: BLOOD SPECIMENOrdering Facility: [facility] Address: [address] [place] [address] Performed By: #### 2 4323-8, , 2776-06 ####[facility] LABCLIA [id number] [address], [facility] [place] Bilirubin [Mass/Vol] 0.8 mg/dL Normal 0.2-1.3 [facility] Comment on above: Order Comment: Speci men Type: BLOOD SPECIMENOrdering Facility: [facility] Address: [address] [place], [place] [address] Performed By: #### 2 4323-8, , 2776-06 ####[facility] LABCLIA [id number] [address] [place] [address] [place] Calcium [Mass/Vol] 9.7 mg/dL Normal 8.5-10.2 [facility] Comment on above: Order Comment: Speci men Type: BLOOD SPECIMENOrdering Facility: [facility] Address: [address] [place], [place] [address] Performed By: #### 2 4323-8, , 2776-06 ####[facility] LABCLIA [id number] [facility] [address] [address] [place] Chloride [Moles/Vol] 99 mmol/L Normal 98-107 [facility] Comment on above: Order Comment: Speci men Type: BLOOD SPECIMENOrdering Facility: [facility] Address: [address] [place] [address] Performed By: #### 2 4323-8, , 2776-06 ####[facility] LABCLIA [id number] [facility] [place] [id number] [place] CO2 [Moles/Vol] 25 mmol/L Normal 22-30 [facility] Comment on above: Order Comment: Speci men Type: BLOOD SPECIMENOrdering Facility: [facility] Address: [address] [place] [address] Performed By: #### 2 4323-8, , 2776-06 ####[facility] LABCLIA [id number] [facility] [address] [place] [address] [place] Creatinine [Mass/Vol] 0.93 mg/dL Normal 0.58-0.96 [facility] Comment on above: Order Comment: Speci men Type: BLOOD SPECIMENOrdering Facility: [facility] Address: [address] [place], [place] [address] Performed By: #### 2 4323-8, , 2776-06 ####[facility] LABCLIA [id number] [facility] [address] [place] [address] [place] Creatinine and Glomerular filtration rate.predicted panel (S/P/Bld) 79 mL/min/1.73m??? Normal >=60 [facility] Comment on above: Order Comment: Dora finch Type: BLOOD SPECIMENOrdering Facility: [facility] Address: [address] [place] [address] Result Comment: Zeny mated Glomerular Filtration Rate [...] actual GFR. Performed By: #### 2 4323-8, 81114-5, 2776- ####[facility] [id number] [address] [address] [place] Glucose [Mass/Vol] 91 mg/dL Normal 74-99 [facility] Comment on above: Order Comment: Dora finch Type: BLOOD SPECIMENOrdering Facility: [facility] Address: [address] [place] [address] Result Comment: The [employer] Diabetes Association (ADA) provides guidance for cutoff [...] Standards of Medical Care in Diabetes 2016, [employer]. Diabetes Care. 2016.39(Suppl 1). Performed By: #### 2 4323-8, 55573-0, 2776- ####[facility] LABIA [id number] [address] [address] [place] Potassium [Moles/Vol] 3.8 mmol/L Normal 3.7-5.1 [facility] Comment on above: Order Comment: Speci men Type: BLOOD SPECIMENOrdering Facility: [facility] Address: [address] [place], [place] [address] Performed By: #### 2 4323-8, , 2776-06 ####[facility] LABCLIA [id number] [address] [address] [place] Protein [Mass/Vol] 6.9 g/dL Normal 6.3-8.0 [facility] Comment on above: Order Comment: Speci men Type: BLOOD SPECIMENOrdering Facility: [facility] Address: [address] [place] [address] Performed By: #### 2 4323-8, , 2776-06 ####[facility] LABCLIA [id number] [place] [address] [place] Sodium [Moles/Vol] 136 mmol/L Normal 136-144 [facility] Comment on above: Order Comment: Speci men Type: BLOOD SPECIMENOrdering Facility: [facility] Address: [address] [place], [place] [address] Performed By: #### 2 4323-8, , 2776-06 ####[facility] LABIA [id number] [place] [address] [place] Urea nitrogen [Mass/Vol] 9 mg/dL Normal 7-21 [facility] Comment on above: Order Comment: Speci men Type: BLOOD SPECIMENOrdering Facility: [facility] Address: [address] [place], [place] [address] Performed By: #### 2 4323-8, , 2776-06 ####[facility] LABIA [id number] [address] [address] [place] Fact Xa PPP-aCncon 5 Coagulation factor X activated act Coag Qn (PPP) <0.10 Normal <0.10 [facility] Comment on above: Order Comment: Speci men Type: BLOOD SPECIMENOrdering Facility: [facility] Address: [address] [place] [address] Result Comment: The recommended therapeutic range for treatment of venous and arterial thrombosis with intravenous unfractionated heparin is an anti Xa activity level of 0.3 to 0.7 IU/mL. In patients with concomitant therapy with thrombolytic agents and/or platelet glycoprotein IIb/IIIa antagonists, the recommended therapeutic range is an anti Xa activity level of 0.2 to 0.5 IU/mL. Performed By: #### 3 217-7, 50035-9, 92159-3 ####[facility] [id number] [place] [address] [place] Coagulation factor X activated act Coag Qn (PPP) 0.91 IU/mL High <0.10 [facility] Comment on above: Order Comment: Dora finch Type: BLOOD SPECIMENOrdering Facility: [facility] Address: [address] [place] [address] Result Comment: The recommended therapeutic range for treatment of venous and arterial thrombosis with intravenous unfractionated heparin is an anti Xa activity level of 0.3 to 0.7 IU/mL. In patients with concomitant therapy with thrombolytic agents and/or platelet glycoprotein IIb/IIIa antagonists, the recommended therapeutic range is an anti Xa activity level of 0.2 to 0.5 IU/mL. Performed By: #### 3 217-7 ####[facility] [id number] [place] [address] [place] Coagulation factor X activated act Coag Qn (PPP) >1.50 High <0.10 [facility] Comment on above: Order Comment: Dora [facility] Type: BLOOD SPECIMENOrdering Facility: [facility] Address: [address] [place] [address] Result Comment: Extr ruben high heparin anti-Xa [...] 0.5 IU/mL. Performed By: #### 3 217-7, 19465-1 ####[facility] LABIA [id number] [place] [id number] [place] HISTORY PHYSICALon HISTORY PHYSICAL Normal [facility] Magnesium SerPl-mCncon 12-05 Magnesium [Mass/Vol] 1.8 mg/dL Normal 1.7-2.3 [facility] Comment on above: Order Comment: Specsammie finch Type: BLOOD SPECIMENOrdering Facility: [facility] Address: [address] [place] [address] Performed By: #### 2 4323-8, 75467-7, 2777-1 ####[facility] LABIA [id number] [place] [id number] [place] NURSING PROGon 12-05-2024 NURSING PROG Normal [facility] NURSING PROG Normal [facility] NUTRITIONon 12-05-2024 NUTRITION Normal [facility] PT panel Coag (PPP)on 2024 INR Coag (PPP) [Relative time] 1.1 {INR} Normal 0.9-1.3 [facility] Comment on above: Order Comment: Specsammie finch Type: BLOOD SPECIMENOrdering Facility: [facility] Address: [address] [place] [address] Result Comment: Yamileth min K Antagonist (VKA) Therapeutic Range: INR 2 to 3 (Target INR of 2.5)Note: For patients treated with VKA drugs, such as warfarin, the [employer] 2012 Guideline recommends [...] of 3).Rufina GH, et al. Chest 2012, 141:7S-47SNishimcindy RA, et al. [facility] 2017, 70: 252-289 Performed By: #### 3 217-7, 15733-2, 46231-6 ####[facility] [id number] [place] [address] [place] PT Coag (PPP) [Time] 11.5 s Normal 9.7-13.0 [facility] Comment on above: Order Comment: Dora finch Type: BLOOD SPECIMENOrdering Facility: [facility] Address: [address] [place] [address] Performed By: #### 3 217-7, 45610-5, 13451-1 ####[facility] [id number] [place] [address] [place] INR Coag (PPP) [Relative time] 1.2 {INR} Normal 0.9-1.3 [facility] Comment on above: Order Comment: Dora finch Type: BLOOD SPECIMENOrdering Facility: [facility] Address: [address] [place] [address] Result Comment: Yamileth min K Antagonist (VKA) Therapeutic Range: INR 2 to 3 (Target INR of 2.5)Note: For patients treated with VKA drugs, such as warfarin, the [employer]icians 2012 Guideline recommends [...] al. Chest 2012, 141:7S-47SNishimura RA, et al. [facility] 2017, 70: 252-289 Performed By: #### 3 217-7, 98958-6 ####[facility] LABIA [id number] [place] [address] [place] PT Coag (PPP) [Time] 12.4 s Normal 9.7-13.0 [facility] Comment on above: Order Comment: Speci men Type: BLOOD SPECIMENOrdering Facility: [facility] Address: [address] [place] [address] Performed By: #### 3 217-7, 94741-1 ####[facility] [id number] [place] [address] [place] Phosphate SerPl-mCncon 12-05 Phosphate [Mass/Vol] 3.9 mg/dL Normal 2.7-4.8 [facility] Comment on above: Order Comment: Speci men Type: BLOOD SPECIMENOrdering Facility: [facility] Address: [address] [place] [address] Performed By: #### 2 4323-8, 35861-0, 2777-1 ####[facility] [id number] [place] [address] [place] aPTT PPPon 12-05-2024 aPTT Coag (PPP) [Time] 26.2 s Normal 23.0-32.4 [facility] Comment on above: Order Comment: Speci men Type: BLOOD SPECIMENOrdering Facility: [facility] Address: [address] [place] [address] Performed By: #### 3 217-7, 14519-9, 79757-3 ####[facility] LABIA [id number] [address] [address] [place] aPTT Coag (PPP) [Time] s High 23.0-32.4 [facility] Comment on above: Order Comment: Speci men Type: BLOOD SPECIMENOrdering Facility: [facility] Address: [address] [place] [address] Result Comment: Samp le checked for clot.Result rechecked. Performed By: #### 1 4979-9 ####[facility] LABCLIA [id number] [address] [place] [address] [place] Culture, Blood (WB)on 2024 CUB Blood cultures x2, f rom two different sites No growth in 5 days. Normal [facility] Comment on above: Performed By: #### L 100.0100, L500.4050, L503.6005, L300.3900, L300.4310, M200.1000 ####[facility] [address] [place], [address] Urine Cultureon 11-25-2024 URC Normal [facility] Comment on above: Performed By: #### M 100.678, L400.0001, M100.2200 ####[facility] [address] [place], [address] Basic Metabolic Profile (BMP )on 11-24-2024 BUN Normal 4-19 [facility] Comment on above: Result Comment: Canc elled via OM: Order cancelled - Patient discharged Performed By: #### L 500.2500, L100.0100 ####[facility] [address] [place], [address] BUN/CRE Normal 10-20 [facility] Comment on above: Result Comment: Canc elled via OM: Order cancelled - Patient discharged Performed By: #### L 500.2500, L100.0100 ####[facility] [address] [place], [address] Calcium Normal 7.6-11.0 [facility] Comment on above: Result Comment: Canc elled via OM: Order cancelled - Patient discharged Performed By: #### L 500.2500, L100.0100 ####[facility] [address] [place], [address] CL Normal 98-108 [facility] Comment on above: Result Comment: Canc elled via OM: Order cancelled - Patient discharged Performed By: #### L 500.2500, L100.0100 ####[facility] [address] [place], [address] CO2 Normal 21.0-32.0 [facility] Comment on above: Result Comment: Canc elled via OM: Order cancelled - Patient discharged Performed By: #### L 500.2500, L100.0100 ####[facility] [address] [place], [address] CREAT,SERUM Normal 0.70-1.20 [facility] Comment on above: Result Comment: Canc elled via OM: Order cancelled - Patient discharged Performed By: #### L 500.2500, L100.0100 ####[facility] [address] [place], [address] eGFR Normal >60 [facility] Comment on above: Result Comment: Canc elled via OM: Order cancelled - Patient discharged Performed By: #### L 500.2500, L100.0100 ####[facility] [address] [place], [address] GAP Normal 5-15 [facility] Comment on above: Result Comment: Canc elled via OM: Order cancelled - Patient discharged Performed By: #### L 500.2500, L100.0100 ####[facility] [address] [place], [address] GLU Normal 70-99 [facility] Comment on above: Result Comment: Canc elled via OM: Order cancelled - Patient discharged Performed By: #### L 500.2500, L100.0100 ####[facility] [address] [place], [address] Potassium Normal 3.3-5.1 [facility] Comment on above: Result Comment: Canc elled via OM: Order cancelled - Patient discharged Performed By: #### L 500.2500, L100.0100 ####[facility] [address] [place], [address] Basic Metabolic Profile (BMP) Normal 133-145 [facility] Comment on above: Result Comment: Canc elled via OM: Order cancelled - Patient discharged Performed By: #### L 500.2500, L100.0100 ####[facility] [address] [place], [address] CBC W/Diff, Automatedon 05-3 Absolute Neut Normal 2.0-7.7 [facility] Comment on above: Result Comment: Canc elled via OM: Order cancelled - Patient discharged Performed By: #### L 500.2500, L100.0100 ####[facility] [address] [place], [address] HCT Normal 37-47 [facility] Comment on above: Result Comment: Canc elled via OM: Order cancelled - Patient discharged Performed By: #### L 500.2500, L100.0100 ####[facility] [address] [place], [address] HGB Normal 12.0-15.0 [facility] Comment on above: Result Comment: Canc elled via OM: Order cancelled - Patient discharged Performed By: #### L 500.2500, L100.0100 ####[facility] [address] [place], [address] MCH Normal 27.0-32.0 [facility] Comment on above: Result Comment: Canc elled via OM: Order cancelled - Patient discharged Performed By: #### L 500.2500, L100.0100 ####[facility] [address] [place], [address] MCHC Normal 32-36 [facility] Comment on above: Result Comment: Canc elled via OM: Order cancelled - Patient discharged Performed By: #### L 500.2500, L100.0100 ####[facility] [address] [place], [address] MCV Normal 81-99 [facility] Comment on above: Result Comment: Canc elled via OM: Order cancelled - Patient discharged Performed By: #### L 500.2500, L100.0100 ####[facility] [address] [place], [address] NEUT% Normal 47-70 [facility] Comment on above: Result Comment: Canc elled via OM: Order cancelled - Patient discharged Performed By: #### L 500.2500, L100.0100 ####[facility] [address] [place], [address] PLT Normal 150-450 [facility] Comment on above: Result Comment: Canc elled via OM: Order cancelled - Patient discharged Performed By: #### L 500.2500, L100.0100 ####[facility] [address] [place], [address] RBC Normal 4.2-5.4 [facility] Comment on above: Result Comment: Canc elled via OM: Order cancelled - Patient discharged Performed By: #### L 500.2500, L100.0100 ####[facility] [address] [place], [address] RDW CV Normal 11.6-14.6 [facility] Comment on above: Result Comment: Canc elled via OM: Order cancelled - Patient discharged Performed By: #### L 500.2500, L100.0100 ####[facility] [address] [place], [address] RDW SD Normal 35.1-43.9 [facility] Comment on above: Result Comment: Canc elled via OM: Order cancelled - Patient discharged Performed By: #### L 500.2500, L100.0100 ####[facility] [address] [place], [address] WBC Normal 4.4-11.0 [facility] Comment on above: Result Comment: Canc elled via OM: Order cancelled - Patient discharged Performed By: #### L 500.2500, L100.0100 ####[facility] [address] [place], [address] Basic Metabolic Profile (BMP )on 11-23-2024 BUN/CRE 7.9 RATIO Low 10-20 [facility] Comment on above: Performed By: #### L 100.0100, L500.2500 ####[facility] [address] [place], [address] Calcium [Mass/Vol] 7.5 mg/dL Low 7.6-11.0 [facility] Comment on above: Performed By: #### L 100.0100, L500.2500 ####[facility] [address] [place], [address] Chloride [Moles/Vol] 111 mmol/L High 98-108 [facility] Comment on above: Performed By: #### L 100.0100, L500.2500 ####[facility] [address] [place], [address] CO2 [Moles/Vol] 18.5 mmol/L Low 21.0-32.0 [facility] Comment on above: Performed By: #### L 100.0100, L500.2500 ####[facility] [address] [place], [address] Creatinine [Mass/Vol] 0.91 mg/dL Normal 0.70-1.20 [facility] Comment on above: Performed By: #### L 100.0100, L500.2500 ####[facility] [address] [place], [address] ECRCL 90.47 ml/min Normal 50-250 [facility] Comment on above: Performed By: #### L 100.0100, L500.2500 ####[facility] [address] [place], [address] GAP 9 Normal 5-15 [facility] Comment on above: Performed By: #### L 100.0100, L500.2500 ####[facility] [address] [place], [address] GFR/1.73 sq M.predicted among non-blacks MDRD (S/P/Bld) [Vol rate/Area] 81 mL/min/{1.73_m2} Normal >60 [facility] Comment on above: Result Comment: mL/m in/1.73m2 CKD-EPI Creatinine Equation (2020) Performed By: #### L 100.0100, L500.2500 ####[facility] [address] [place], [address] Glucose [Mass/Vol] 111 mg/dL High 70-99 [facility] Comment on above: Performed By: #### L 100.0100, L500.2500 ####[facility] [address] [place], [address] Potassium [Moles/Vol] 3.2 mmol/L Low 3.3-5.1 [facility] Comment on above: Performed By: #### L 100.0100, L500.2500 ####[facility] [address] [place], [address] Sodium [Moles/Vol] 139 mmol/L Normal 133-145 [facility] Comment on above: Performed By: #### L 100.0100, L500.2500 ####[facility] [address] [place], [address] Urea nitrogen [Mass/Vol] 7 mg/dL Normal 4-19 [facility] Comment on above: Performed By: #### L 100.0100, L500.2500 ####[facility] [address] [place], [address] CBC W/Diff, Automatedon 10-27 OVALOCYTE 1+ Normal [facility] Comment on above: Performed By: #### L 100.0100, L500.2500 ####[facility] [address] [place], [address] PLT EST A Normal ADEQ [facility] Comment on above: Performed By: #### L 100.0100, L500.2500 ####[facility] [address] [place], [address] ATYPICAL LYMPH 1+ Normal [facility] Comment on above: Performed By: #### L 100.0100, L500.2500 ####[facility] [address] [place], [address] Basic Metabolic Profile (BMP )on 11-22-2024 BUN/CRE 14.4 RATIO Normal 10-20 [facility] Comment on above: Performed By: #### L 100.0100, L500.2500, L501.2300, L501.5200 ####[facility] [address] [place], [address] Calcium [Mass/Vol] 8.5 mg/dL Normal 7.6-11.0 [facility] Comment on above: Performed By: #### L 100.0100, L500.2500, L501.2300, L501.5200 ####[facility] [address] [place], [address] Chloride [Moles/Vol] 107 mmol/L Normal 98-108 [facility] Comment on above: Performed By: #### L 100.0100, L500.2500, L501.2300, L501.5200 ####[facility] [address] [place], [address] CO2 [Moles/Vol] 18.4 mmol/L Low 21.0-32.0 [facility] Comment on above: Performed By: #### L 100.0100, L500.2500, L501.2300, L501.5200 ####[facility] [address] [place], [address] Creatinine [Mass/Vol] 1.24 mg/dL High 0.70-1.20 [facility] Comment on above: Performed By: #### L 100.0100, L500.2500, L501.2300, L501.5200 ####[facility] [address] [place], [address] ECRCL 66.39 ml/min Normal 50-250 [facility] Comment on above: Performed By: #### L 100.0100, L500.2500, L501.2300, L501.5200 ####[facility] [address] [place], [address] GAP 11 Normal 5-15 [facility] Comment on above: Performed By: #### L 100.0100, L500.2500, L501.2300, L501.5200 ####[facility] [address] [place], [address] GFR/1.73 sq M.predicted among non-blacks MDRD (S/P/Bld) [Vol rate/Area] 56 mL/min/{1.73_m2} Low >60 [facility] Comment on above: Result Comment: mL/m in/1.73m2 CKD-EPI Creatinine Equation (2020) Performed By: #### L 100.0100, L500.2500, L501.2300, L501.5200 ####[facility] [address] [place], [address] Glucose [Mass/Vol] 101 mg/dL High 70-99 [facility] Comment on above: Performed By: #### L 100.0100, L500.2500, L501.2300, L501.5200 ####[facility] [address] [place], [address] Potassium [Moles/Vol] 3.4 mmol/L Normal 3.3-5.1 [facility] Comment on above: Performed By: #### L 100.0100, L500.2500, L501.2300, L501.5200 ####[facility] [address] [place], [address] Sodium [Moles/Vol] 137 mmol/L Normal 133-145 [facility] Comment on above: Performed By: #### L 100.0100, L500.2500, L501.2300, L501.5200 ####[facility] [address] [place], [address] Urea nitrogen [Mass/Vol] 18 mg/dL Normal 4-19 [facility] Comment on above: Performed By: #### L 100.0100, L500.2500, L501.2300, L501.5200 ####[facility] [address] [place], [address] CBC W/Diff, Automatedon 05-2 PATH REV Reviewed Normal [facility] Comment on above: Result Comment: SEE REPORT IN PATIENT'S EMR AMENDED REPORT 11/22/24 1421 PATH REV previously reported as: October bianca Performed By: #### L 300.3900, L300.4310, L503.6005, L500.4050, L501.4021, L503.7505, L100.0100, M200.1000 ####[facility] [address] [place], [address] Absolute Lymph 1.71 X10 3/uL Normal 0.83-4.51 [facility] Comment on above: Performed By: #### L 100.0100, L500.2500, L501.2300, L501.5200 ####[facility] [address] [place], [address] Absolute Neut 3.9 X10 3/uL Normal 2.0-7.7 [facility] Comment on above: Performed By: #### L 100.0100, L500.2500, L501.2300, L501.5200 ####[facility] [address] [place], [address] Basophils/100 WBC (Bld) 0.6 % Normal 0-1 [facility] Comment on above: Performed By: #### L 100.0100, L500.2500, L501.2300, L501.5200 ####[facility] [address] [place], [address] Eosinophils/100 WBC (Bld) 3.0 % Normal 0-5 [facility] Comment on above: Performed By: #### L 100.0100, L500.2500, L501.2300, L501.5200 ####[facility] [address] [place], [address] Erythrocyte distribution width (RBC) [Ratio] 16.2 % High 11.6-14.6 [facility] Comment on above: Performed By: #### L 100.0100, L500.2500, L501.2300, L501.5200 ####[facility] [address] [place], [address] Hematocrit (Bld) [Volume fraction] 27.7 % Low 37-47 [facility] Comment on above: Performed By: #### L 100.0100, L500.2500, L501.2300, L501.5200 ####[facility] [address] [place], [address] Hemoglobin (Bld) [Mass/Vol] 8.7 g/dL Low 12.0-15.0 [facility] Comment on above: Performed By: #### L 100.0100, L500.2500, L501.2300, L501.5200 ####[facility] [address] [place], [address] IG% 0.300 Normal 0.0-0.9 [facility] Comment on above: Result Comment: IG% - Immature Granulocytes (promyelocytes, myelocytes andmetamyelocytes) > 1% indicates that a LEFT SHIFT is Present. Performed By: #### L 100.0100, L500.2500, L501.2300, L501.5200 ####[facility] [address] [place], [address] Lymphocytes/100 WBC (Bld) 26.9 % Normal 19-41 [facility] Comment on above: Performed By: #### L 100.0100, L500.2500, L501.2300, L501.5200 ####[facility] [address] [place], [address] MCH (RBC) [Entitic mass] 25.1 pg Low 27.0-32.0 [facility] Comment on above: Performed By: #### L 100.0100, L500.2500, L501.2300, L501.5200 ####[facility] [address] [place], [address] MCHC (RBC) [Mass/Vol] 31.4 g/dL Low 32-36 [facility] Comment on above: Performed By: #### L 100.0100, L500.2500, L501.2300, L501.5200 ####[facility] [address] [place], [address] MCV (RBC) [Entitic vol] 79.8 fL Low 81-99 [facility] Comment on above: Performed By: #### L 100.0100, L500.2500, L501.2300, L501.5200 ####[facility] [address] [place], [address] Monocytes/100 WBC (Bld) 8.2 % Normal 0-10 [facility] Comment on above: Performed By: #### L 100.0100, L500.2500, L501.2300, L501.5200 ####[facility] [address] [place], [address] Neutrophils/100 WBC (Bld) 61.0 % Normal 47-70 [facility] Comment on above: Performed By: #### L 100.0100, L500.2500, L501.2300, L501.5200 ####[facility] [address] [place], [address] Nucleated RBC (Bld) [#/Vol] 0 10*3/uL Normal 0-5 [facility] Comment on above: Performed By: #### L 100.0100, L500.2500, L501.2300, L501.5200 ####[facility] [address] [place], [address] Platelet mean volume (Bld) [Entitic vol] 8.8 fL Normal 6.2-12.0 [facility] Comment on above: Performed By: #### L 100.0100, L500.2500, L501.2300, L501.5200 ####[facility] [address] [place], [address] Platelets (Bld) [#/Vol] 351 10*3/uL Normal 150-450 [facility] Comment on above: Performed By: #### L 100.0100, L500.2500, L501.2300, L501.5200 ####[facility] [address] [place], [address] RBC (Bld) [#/Vol] 3.47 10*6/uL Low 4.2-5.4 [facility] Comment on above: Performed By: #### L 100.0100, L500.2500, L501.2300, L501.5200 ####[facility] [address] [place], [address] RDW SD 46.9 fl High 35.1-43.9 [facility] Comment on above: Performed By: #### L 100.0100, L500.2500, L501.2300, L501.5200 ####[facility] [address] [place], [address] WBC (Bld) [#/Vol] 6.4 10*3/uL Normal 4.4-11.0 [facility] Comment on above: Performed By: #### L 100.0100, L500.2500, L501.2300, L501.5200 ####[facility] [address] [place], [address] Magnesiumon 11-22-2024 Magnesium [Mass/Vol] 1.3 mg/dL Low 1.5-2.2 [facility] Comment on above: Performed By: #### L 100.0100, L500.2500, L501.2300, L501.5200 ####[facility] [address] [place], [address] Phosphoruson 11-22-2024 Phosphate [Mass/Vol] 2.7 mg/dL Normal 2.7-4.5 [facility] Comment on above: Performed By: #### L 100.0100, L500.2500, L501.2300, L501.5200 ####[facility] [address] [place], [address] Basic Metabolic Profile (BMP )on 11-21-2024 BUN/CRE 11.9 RATIO Normal 10-20 [facility] Comment on above: Performed By: #### L 100.0100, L500.2500 ####[facility] [address] [place], [address] Calcium [Mass/Vol] 9.1 mg/dL Normal 7.6-11.0 [facility] Comment on above: Performed By: #### L 100.0100, L500.2500 ####[facility] [address] [place], [address] Chloride [Moles/Vol] 95 mmol/L Low 98-108 [facility] Comment on above: Performed By: #### L 100.0100, L500.2500 ####[facility] [address] [place], [address] CO2 [Moles/Vol] 15.6 mmol/L Low 21.0-32.0 [facility] Comment on above: Performed By: #### L 100.0100, L500.2500 ####[facility] [address] [place], [address] Creatinine [Mass/Vol] 2.69 mg/dL High 0.70-1.20 [facility] Comment on above: Performed By: #### L 100.0100, L500.2500 ####[facility] [address] [place], [address] ECRCL 30.60 ml/min Low 50-250 [facility] Comment on above: Performed By: #### L 100.0100, L500.2500 ####[facility] [address] [place], [address] GAP 17 High 5-15 [facility] Comment on above: Performed By: #### L 100.0100, L500.2500 ####[facility] [address] [place], [address] GFR/1.73 sq M.predicted among non-blacks MDRD (S/P/Bld) [Vol rate/Area] 22 mL/min/{1.73_m2} Low >60 [facility] Comment on above: Result Comment: mL/m in/1.73m2 CKD-EPI Creatinine Equation (2020) Performed By: #### L 100.0100, L500.2500 ####[facility] [address] [place], [address] Glucose [Mass/Vol] 127 mg/dL High 70-99 [facility] Comment on above: Performed By: #### L 100.0100, L500.2500 ####[facility] [address] [place], [address] Potassium [Moles/Vol] 3.6 mmol/L Normal 3.3-5.1 [facility] Comment on above: Performed By: #### L 100.0100, L500.2500 ####[facility] [address] [place], [address] Sodium [Moles/Vol] 128 mmol/L Low 133-145 [facility] Comment on above: Performed By: #### L 100.0100, L500.2500 ####[facility] [address] [place], [address] Urea nitrogen [Mass/Vol] 32 mg/dL High 4-19 [facility] Comment on above: Performed By: #### L 100.0100, L500.2500 ####[facility] [address] [place], [address] CBC W/Diff, Automatedon 05-2 Absolute Lymph 2.24 X10 3/uL Normal 0.83-4.51 [facility] Comment on above: Performed By: #### L 100.0100, L500.2500 ####[facility] [address] [place], [address] Absolute Neut 5.3 X10 3/uL Normal 2.0-7.7 [facility] Comment on above: Performed By: #### L 100.0100, L500.2500 ####[facility] [address] [place], [address] Basophils/100 WBC (Bld) 0.6 % Normal 0-1 [facility] Comment on above: Performed By: #### L 100.0100, L500.2500 ####[facility] [address] [place], [address] Eosinophils/100 WBC (Bld) 1.9 % Normal 0-5 [facility] Comment on above: Performed By: #### L 100.0100, L500.2500 ####[facility] [address] [place], [address] Erythrocyte distribution width (RBC) [Ratio] 16.3 % High 11.6-14.6 [facility] Comment on above: Performed By: #### L 100.0100, L500.2500 ####[facility] [address] [place], [address] Hematocrit (Bld) [Volume fraction] 30.2 % Low 37-47 [facility] Comment on above: Performed By: #### L 100.0100, L500.2500 ####[facility] [address] [place], [address] Hemoglobin (Bld) [Mass/Vol] 9.5 g/dL Low 12.0-15.0 [facility] Comment on above: Performed By: #### L 100.0100, L500.2500 ####[facility] [address] [place], [address] IG% 0.500 Normal 0.0-0.9 [facility] Comment on above: Result Comment: IG% - Immature Granulocytes (promyelocytes, myelocytes andmetamyelocytes) > 1% indicates that a LEFT SHIFT is Present. Performed By: #### L 100.0100, L500.2500 ####[facility] [address] [place], [address] Lymphocytes/100 WBC (Bld) 26.5 % Normal 19-41 [facility] Comment on above: Performed By: #### L 100.0100, L500.2500 ####[facility] [address] [place], [address] MCH (RBC) [Entitic mass] 24.7 pg Low 27.0-32.0 [facility] Comment on above: Performed By: #### L 100.0100, L500.2500 ####[facility] [address] [place], [address] MCHC (RBC) [Mass/Vol] 31.5 g/dL Low 32-36 [facility] Comment on above: Performed By: #### L 100.0100, L500.2500 ####[facility] [address] [place], [address] MCV (RBC) [Entitic vol] 78.6 fL Low 81-99 [facility] Comment on above: Performed By: #### L 100.0100, L500.2500 ####[facility] [address] [place], [address] Monocytes/100 WBC (Bld) 8.5 % Normal 0-10 [facility] Comment on above: Performed By: #### L 100.0100, L500.2500 ####[facility] [address] [place], [address] Neutrophils/100 WBC (Bld) 62.0 % Normal 47-70 [facility] Comment on above: Performed By: #### L 100.0100, L500.2500 ####[facility] [address] [place], [address] Nucleated RBC (Bld) [#/Vol] 0 10*3/uL Normal 0-5 [facility] Comment on above: Performed By: #### L 100.0100, L500.2500 ####[facility] [address] [place], [address] Platelet mean volume (Bld) [Entitic vol] 8.8 fL Normal 6.2-12.0 [facility] Comment on above: Performed By: #### L 100.0100, L500.2500 ####[facility] [address] [place], [address] Platelets (Bld) [#/Vol] 423 10*3/uL Normal 150-450 [facility] Comment on above: Performed By: #### L 100.0100, L500.2500 ####[facility] [address] [place], [address] RBC (Bld) [#/Vol] 3.84 10*6/uL Low 4.2-5.4 [facility] Comment on above: Performed By: #### L 100.0100, L500.2500 ####[facility] [address] [place], [address] RDW SD 46.2 fl High 35.1-43.9 [facility] Comment on above: Performed By: #### L 100.0100, L500.2500 ####[facility] [address] [place], [address] WBC (Bld) [#/Vol] 8.5 10*3/uL Normal 4.4-11.0 [facility] Comment on above: Performed By: #### L 100.0100, L500.2500 ####[facility] [address] [place], [address] H AND P Exam - Hospitaliston 11-21-2024 H&P Exam - Hospitalist Normal [facility] Urinalysis, Completeon 11-21 BACTERIA 2+ /hpf Normal None Seen [facility] Comment on above: Order Comment: COLLE CTOR TO SPECIFY Performed By: #### M 100.678, L400.0001, M100.2200 ####[facility] [address] [place], [address] EPI,SQUAMOUS 0-5 SEEN Normal 5-10 [facility] Comment on above: Order Comment: [facility] CTOR TO SPECIFY Performed By: #### M 100.678, L400.0001, M100.2200 ####[facility] [address] [place], [address] WBC 10-25 SEEN Normal 0-5 [facility] Comment on above: Order Comment: [facility] CTOR TO SPECIFY Performed By: #### M 100.678, L400.0001, M100.2200 ####[facility] [address] [place], [address] YEAST 1+ /hpf Normal None Seen [facility] Comment on above: Order Comment: [facility] CTOR TO SPECIFY Performed By: #### M 100.678, L400.0001, M100.2200 ####[facility] [address] [place], [address] BILIRUBIN URINE Negative Normal Negative [facility] Comment on above: Order Comment: [facility] CTOR TO SPECIFY Performed By: #### M 100.678, L400.0001, M100.2200 ####[facility] [address] [place], [address] Clarity (U) Clear Normal Clear [facility] Comment on above: Order Comment: [facility] CTOR TO SPECIFY Performed By: #### M 100.678, L400.0001, M100.2200 ####[facility] [address] [place], [address] Color (U) Yellow Normal Yellow [facility] Comment on above: Order Comment: [facility] CTOR TO SPECIFY Performed By: #### M 100.678, L400.0001, M100.2200 ####[facility] [address] [place], [address] GLUCOSE, UR Normal Normal Normal [facility] Comment on above: Order Comment: LEO CTOR TO SPECIFY Performed By: #### M 100.678, L400.0001, M100.2200 ####[facility] [address] [place], [address] KETONE UR Negative Normal Negative [facility] Comment on above: Order Comment: LEO CTOR TO SPECIFY Performed By: #### M 100.678, L400.0001, M100.0 ####[facility] [address] [place], [address] LEUK ESTERASE 25 /ul Abnormal Negative [facility] Comment on above: Order Comment: [facility] CTOR TO SPECIFY Performed By: #### M 100.678, L400.0001, .0 ####[facility] [address] [place], [address] Nitrite Ql (U) Negative Normal Negative [facility] Comment on above: Order Comment: [facility] CTOR TO SPECIFY Performed By: #### M 100.678, L400.0001, M1.0 ####[facility] [address] [place], [address] OCCULT BLOOD-UR Negative Normal Negative [facility] Comment on above: Order Comment: [facility] CTOR TO SPECIFY Performed By: #### M 100.678, L400.0001, M1.0 ####[facility] [address] [place], [address] pH UR 5.0 Normal 5.0 - 8.0 [facility] Comment on above: Order Comment: LEO CTOR TO SPECIFY Performed By: #### M 100.678, L400.0001, M100.2200 ####[facility] [address] [place], [address] PROT DIPSTX 30 mg/dl Abnormal Negative [facility] Comment on above: Order Comment: LEO CTOR TO SPECIFY Performed By: #### M 100.678, L400.0001, M100.2200 ####[facility] [address] [place], [address] SP.GR. DIPSTX 1.015 Normal 1.002-1.030 [facility] Comment on above: Order Comment: LEO CTOR TO SPECIFY Performed By: #### M 100.678, L400.0001, M100.2200 ####[facility] [address] [place], [address] UROBILI Normal Normal Normal [facility] Comment on above: Order Comment: LEO CTOR TO SPECIFY Performed By: #### M 100.678, L400.0001, M100.2200 ####[facility] [address] [place], [address] Mucus Ql (Urine sed) 0 SEEN Normal [facility] Comment on above: Order Comment: LEO CTOR TO SPECIFY Performed By: #### M 100.678, L400.0001, M100.2200 ####[facility] [address] [place], [address] RBC 0 SEEN Normal 0-5 [facility] Comment on above: Order Comment: LEO CTOR TO SPECIFY Performed By: #### M 100.678, L400.0001, M100.2200 ####[facility] [address] [place], [address] 12 Lead EKGon 11-20-2024 12 Lead EKG Normal [facility] CBC W/Diff, Automatedon - PLT EST MKD INC Normal ADEQ [facility] Comment on above: Performed By: #### L 100.0100, L500.4050, L503.6005, L300.3900, L300.4310, M200.1000 ####[facility] [address] [place], [address] PATH REV May foll Normal [facility] Comment on above: Performed By: #### L 100.0100, L500.4050, L503.6005, L300.3900, L300.4310, M200.1000 ####[facility] [address] [place], [address] CTA Chst, Abd, Pel W and/or WOon 11-20-2024 CTA Chst, Abd, Pel W and/or WO Normal [facility] Comprehensive Metabolic Prof ilon 11-20-2024 Albumin [Mass/Vol] 4.7 g/dL Normal 3.5-5.0 [facility] Comment on above: Performed By: #### L 100.0100, L500.4050, L503.6005, L300.3900, L300.4310, M200.1000 ####[facility] [address] [place], [address] Albumin/Globulin [Mass ratio] 0.9 {ratio} Normal 0.9-2.4 [facility] Comment on above: Performed By: #### L 100.0100, L500.4050, L503.6005, L300.3900, L300.4310, M200.1000 ####[facility] [address] [place], [address] ALK PHOS 337 U/L High 35-104 [facility] Comment on above: Performed By: #### L 100.0100, L500.4050, L503.6005, L300.3900, L300.4310, M200.1000 ####[facility] [address] [place], [address] ALT [Catalytic activity/Vol] 127 U/L High <=34 [facility] Comment on above: Performed By: #### L 100.0100, L500.4050, L503.6005, L300.3900, L300.4310, M200.1000 ####[facility] [address] [place], [address] AST [Catalytic activity/Vol] 106 U/L High <=31 [facility] Comment on above: Performed By: #### L 100.0100, L500.4050, L503.6005, L300.3900, L300.4310, M200.1000 ####[facility] [address] [place], [address] Bilirubin [Mass/Vol] 0.82 mg/dL Normal 0.00-1.30 [facility] Comment on above: Performed By: #### L 100.0100, L500.4050, L503.6005, L300.3900, L300.4310, M200.1000 ####[facility] [address] [place], [address] BUN/CRE 8.4 RATIO Low 10-20 [facility] Comment on above: Performed By: #### L 100.0100, L500.4050, L503.6005, L300.3900, L300.4310, M200.1000 ####[facility] [address] [place], [address] Calcium [Mass/Vol] 10.8 mg/dL Normal 7.6-11.0 [facility] Comment on above: Performed By: #### L 100.0100, L500.4050, L503.6005, L300.3900, L300.4310, M200.1000 ####[facility] [address] [place], [address] Chloride [Moles/Vol] 88 mmol/L Low 98-108 [facility] Comment on above: Performed By: #### L 100.0100, L500.4050, L503.6005, L300.3900, L300.4310, M200.1000 ####[facility] [address] [place], [address] CO2 [Moles/Vol] 15.2 mmol/L Low 21.0-32.0 [facility] Comment on above: Performed By: #### L 100.0100, L500.4050, L503.6005, L300.3900, L300.4310, M200.1000 ####[facility] [address] [place], [address] Creatinine [Mass/Vol] 4.32 mg/dL High 0.70-1.20 [facility] Comment on above: Performed By: #### L 100.0100, L500.4050, L503.6005, L300.3900, L300.4310, M200.1000 ####[facility] [address] [place], [place], [id number]) ECRCL 19.01 ml/min Low 50-250 [facility] Comment on above: Performed By: #### L 100.0100, L500.4050, L503.6005, L300.3900, L300.4310, M200.1000 ####[facility] [address] [place], [address] GAP 25 High 5-15 [facility] Comment on above: Performed By: #### L 100.0100, L500.4050, L503.6005, L300.3900, L300.4310, M200.1000 ####[facility] [address] [place], [place], [id number](097) GFR/1.73 sq M.predicted among non-blacks MDRD (S/P/Bld) [Vol rate/Area] 13 mL/min/{1.73_m2} Low >60 [facility] Comment on above: Result Comment: mL/m in/1.73m2 CKD-EPI Creatinine Equation (2020) Performed By: #### L 100.0100, L500.4050, L503.6005, L300.3900, L300.4310, M200.1000 ####[facility] [address] [place], [address] Globulin (S) [Mass/Vol] 5.5 g/dL High 2.2-4.2 [facility] Comment on above: Performed By: #### L 100.0100, L500.4050, L503.6005, L300.3900, L300.4310, M200.1000 ####[facility] [address] [place], [address] Glucose [Mass/Vol] 249 mg/dL High 70-99 [facility] Comment on above: Performed By: #### L 100.0100, L500.4050, L503.6005, L300.3900, L300.4310, M200.1000 ####[facility] [address] [place], [address] Potassium [Moles/Vol] 4.4 mmol/L Normal 3.3-5.1 [facility] Comment on above: Performed By: #### L 100.0100, L500.4050, L503.6005, L300.3900, L300.4310, M200.1000 ####[facility] [address] [place], [address] Sodium [Moles/Vol] 129 mmol/L Low 133-145 [facility] Comment on above: Performed By: #### L 100.0100, L500.4050, L503.6005, L300.3900, L300.4310, M200.1000 ####[facility] [address] [place], [address] T PROT 10.1 g/dL High 5.9-8.4 [facility] Comment on above: Performed By: #### L 100.0100, L500.4050, L503.6005, L300.3900, L300.4310, M200.1000 ####[facility] [address] [place], [address] Urea nitrogen [Mass/Vol] 36 mg/dL High 4-19 [facility] Comment on above: Performed By: #### L 100.0100, L500.4050, L503.6005, L300.3900, L300.4310, M200.1000 ####[facility] [address] [place], [address] Emergency Department Summary on 11-20-2024 Emergency Department Summary Normal [facility] Foot min 3 Viewson 5 Foot min 3 Views Normal [facility] L499.0042on 11-20-2024 Trop T High Sen 32 ng/L High <=14 [facility] Comment on above: Performed By: #### L 499.0042 ####[facility] [address] [place], [address] L499.0043on 11-20-2024 Trop T High Sen 32 ng/L High <=14 [facility] Comment on above: Performed By: #### L 499.0043 ####[facility] [address] [place], [address] L501.4021on 11-20-2024 Trop T High Sen 38 ng/L High <=14 [facility] Comment on above: Performed By: #### L 501.4021 ####[facility] [address] [place], [address] Lactic Acidon 11-20-2024 Lactate [Moles/Vol] 1.7 mmol/L Normal 0.0-2.0 [facility] Comment on above: Performed By: #### L 503.6005 ####[facility] [address] [place], [address] Lactate [Moles/Vol] 6.1 mmol/L Invalid Interpretation Code 0.0-2.0 [facility] Comment on above: Order Comment: Y Result Comment: Crit ical Result(s) Called at: 1557 by: CLAUDIA GUTIERREZ TO RETA??Results read back by same. Performed By: #### L 100.0100, L500.4050, L503.6005, L300.3900, L300.4310, M200.1000 ####[facility] [address] [place], [address] M100.678on 11-20-2024 M100.678 Pending SARS-CoV-2 (COVID 19) Negative INFLUENZA A Negative INFLUENZA B Negative RSV PCR Negative Normal [facility] Comment on above: Performed By: #### M 100.678, L400.0001, M100.2200 ####[facility] [address] [place], [address] Partial Thromboplast Timeon 11-20-2024 aPTT Coag (Bld) [Time] 30.1 s Normal 24.1-36.2 [facility] Comment on above: Performed By: #### L 100.0100, L500.4050, L503.6005, L300.3900, L300.4310, M200.1000 ####[facility] [address] [place], [address] Prothrombin Time w/INRon INR Coag (PPP) [Relative time] 1.1 {INR} Normal [facility] Comment on above: Performed By: #### L 100.0100, L500.4050, L503.6005, L300.3900, L300.4310, M200.1000 ####[facility] [address] [place], [address] PT Coag (PPP) [Time] 14.8 s Normal 11.7-14.9 [facility] Comment on above: Performed By: #### L 100.0100, L500.4050, L503.6005, L300.3900, L300.4310, M200.1000 ####[facility] [address] [place], [address] Culture, Anaerobic Any Sourc patricia 11-19-2024 CUAN UNK UNK COLLECTED IN OR No anaerobic bacteria isolated. [facility] Comment on above: Performed By: #### M 100.3000, M100.4001, M100.2000 ####[facility] [address] [place], [address] Culture, Blood (WB)on 2024 CUB Blood cultures x2, f rom two different sites No growth in 5 days. [facility] Comment on above: Performed By: #### M 200.1000 ####[facility] [address] [place], [address] CUB Blood cultures x2, f rom two different sites No growth in 5 days. [facility] Comment on above: Performed By: #### L 300.3900, L300.4310, L503.6005, L500.4050, L501.4021, L503.7505, L100.0100, M200.1000 ####[facility] [address] [place], [address] Wound Cultureon 11-18-2024 [facility] Comment on above: Performed By: #### M 100.3000, M100.4001, M100.2000 ####[facility] [address] [place], [address] Discharge Instructionon 10-26 Discharge Instruction Normal [facility] Basic Metabolic Profile (BMP )on 11-15-2024 BUN/CRE 13.5 RATIO Normal 10-20 [facility] Comment on above: Performed By: #### L 100.0100, L500.2500, L300.3900, L300.4310 ####[facility] [address] [place], [address] Calcium [Mass/Vol] 8.3 mg/dL Normal 7.6-11.0 [facility] Comment on above: Performed By: #### L 100.0100, L500.2500, L300.3900, L300.4310 ####[facility] [address] [place], [address] Chloride [Moles/Vol] 105 mmol/L Normal 98-108 [facility] Comment on above: Performed By: #### L 100.0100, L500.2500, L300.3900, L300.4310 ####[facility] [address] [place], [address] CO2 [Moles/Vol] 19.0 mmol/L Low 21.0-32.0 [facility] Comment on above: Performed By: #### L 100.0100, L500.2500, L300.3900, L300.4310 ####[facility] [address] [place], [address] Creatinine [Mass/Vol] 1.38 mg/dL High 0.70-1.20 [facility] Comment on above: Performed By: #### L 100.0100, L500.2500, L300.3900, L300.4310 ####[facility] [address] [place], [address] ECRCL 60.44 ml/min Normal 50-250 [facility] Comment on above: Performed By: #### L 100.0100, L500.2500, L300.3900, L300.4310 ####[facility] [address] [place], [address] GAP 11 Normal 5-15 [facility] Comment on above: Performed By: #### L 100.0100, L500.2500, L300.3900, L300.4310 ####[facility] [address] [place], [address] GFR/1.73 sq M.predicted among non-blacks MDRD (S/P/Bld) [Vol rate/Area] 49 mL/min/{1.73_m2} Low >60 [facility] Comment on above: Result Comment: mL/m in/1.73m2 CKD-EPI Creatinine Equation (2020) Performed By: #### L 100.0100, L500.2500, L300.3900, L300.4310 ####[facility] [address] [place], [address] Glucose [Mass/Vol] 90 mg/dL Normal 70-99 [facility] Comment on above: Performed By: #### L 100.0100, L500.2500, L300.3900, L300.4310 ####[facility] [address] [place], [address] Potassium [Moles/Vol] 3.2 mmol/L Low 3.3-5.1 [facility] Comment on above: Performed By: #### L 100.0100, L500.2500, L300.3900, L300.4310 ####[facility] [address] [place], [address] Sodium [Moles/Vol] 135 mmol/L Normal 133-145 [facility] Comment on above: Performed By: #### L 100.0100, L500.2500, L300.3900, L300.4310 ####[facility] [address] [place], [address] Urea nitrogen [Mass/Vol] 19 mg/dL Normal 4-19 [facility] Comment on above: Performed By: #### L 100.0100, L500.2500, L300.3900, L300.4310 ####[facility] [address] [place], [address] CBC W/Diff, Automatedon 05-2 Absolute Lymph 2.01 X10 3/uL Normal 0.83-4.51 [facility] Comment on above: Performed By: #### L 100.0100, L500.2500, L300.3900, L300.4310 ####[facility] [address] [place], [address] Absolute Neut 3.1 X10 3/uL Normal 2.0-7.7 [facility] Comment on above: Performed By: #### L 100.0100, L500.2500, L300.3900, L300.4310 ####[facility] [address] [place], [address] Basophils/100 WBC (Bld) 1.0 % Normal 0-1 [facility] Comment on above: Performed By: #### L 100.0100, L500.2500, L300.3900, L300.4310 ####[facility] [address] [place], [address] Eosinophils/100 WBC (Bld) 1.9 % Normal 0-5 [facility] Comment on above: Performed By: #### L 100.0100, L500.2500, L300.3900, L300.4310 ####[facility] [address] [place], [address] Erythrocyte distribution width (RBC) [Ratio] 16.0 % High 11.6-14.6 [facility] Comment on above: Performed By: #### L 100.0100, L500.2500, L300.3900, L300.4310 ####[facility] [address] [place], [address] Hematocrit (Bld) [Volume fraction] 26.8 % Low 37-47 [facility] Comment on above: Performed By: #### L 100.0100, L500.2500, L300.3900, L300.4310 ####[facility] [address] [place], [address] Hemoglobin (Bld) [Mass/Vol] 8.6 g/dL Low 12.0-15.0 [facility] Comment on above: Performed By: #### L 100.0100, L500.2500, L300.3900, L300.4310 ####[facility] [address] [place], [address] IG% 0.300 Normal 0.0-0.9 [facility] Comment on above: Result Comment: IG% - Immature Granulocytes (promyelocytes, myelocytes andmetamyelocytes) > 1% indicates that a LEFT SHIFT is Present. Performed By: #### L 100.0100, L500.2500, L300.3900, L300.4310 ####[facility] [address] [place], [address] Lymphocytes/100 WBC (Bld) 34.9 % Normal 19-41 [facility] Comment on above: Performed By: #### L 100.0100, L500.2500, L300.3900, L300.4310 ####[facility] [address] [place], [address] MCH (RBC) [Entitic mass] 25.2 pg Low 27.0-32.0 [facility] Comment on above: Performed By: #### L 100.0100, L500.2500, L300.3900, L300.4310 ####[facility] [address] [place], [address] MCHC (RBC) [Mass/Vol] 32.1 g/dL Normal 32-36 [facility] Comment on above: Performed By: #### L 100.0100, L500.2500, L300.3900, L300.4310 ####[facility] [address] [place], [address] MCV (RBC) [Entitic vol] 78.6 fL Low 81-99 [facility] Comment on above: Performed By: #### L 100.0100, L500.2500, L300.3900, L300.4310 ####[facility] [address] [place], [address] Monocytes/100 WBC (Bld) 8.0 % Normal 0-10 [facility] Comment on above: Performed By: #### L 100.0100, L500.2500, L300.3900, L300.4310 ####[facility] [address] [place], [address] Neutrophils/100 WBC (Bld) 53.9 % Normal 47-70 [facility] Comment on above: Performed By: #### L 100.0100, L500.2500, L300.3900, L300.4310 ####[facility] [address] [place], [address] Nucleated RBC (Bld) [#/Vol] 0 10*3/uL Normal 0-5 [facility] Comment on above: Performed By: #### L 100.0100, L500.2500, L300.3900, L300.4310 ####[facility] [address] [place], [address] Platelet mean volume (Bld) [Entitic vol] 9.1 fL Normal 6.2-12.0 [facility] Comment on above: Performed By: #### L 100.0100, L500.2500, L300.3900, L300.4310 ####[facility] [address] [place], [address] Platelets (Bld) [#/Vol] 394 10*3/uL Normal 150-450 [facility] Comment on above: Performed By: #### L 100.0100, L500.2500, L300.3900, L300.4310 ####[facility] [address] [place], [address] RBC (Bld) [#/Vol] 3.41 10*6/uL Low 4.2-5.4 [facility] Comment on above: Performed By: #### L 100.0100, L500.2500, L300.3900, L300.4310 ####[facility] [address] [place], [address] RDW SD 45.2 fl High 35.1-43.9 [facility] Comment on above: Performed By: #### L 100.0100, L500.2500, L300.3900, L300.4310 ####[facility] [address] [place], [address] WBC (Bld) [#/Vol] 5.8 10*3/uL Normal 4.4-11.0 [facility] Comment on above: Performed By: #### L 100.0100, L500.2500, L300.3900, L300.4310 ####[facility] [address] [place], [address] Decalcification bone/plaqueo n 11-15-2024 Decalcification bone/plaque Normal [facility] Comment on above: Performed By: #### P DEC ####[facility] [address] [place], [address] Gram Stainon 11-15-2024 GS UNK UNK COLLECTED IN OR Gram Stain Rare Gram positive cocci Rare Gram positive rods Normal [facility] Comment on above: Performed By: #### M 100.3000, M100.4001, M100.2000 ####[facility] [address] [place], [address] MR/POSTOP.ANEon 11-15-2024 MR/POSTOP.ANE Normal [facility] MR/[id number] 11-15-2024 MR/POSTOPAN2 Normal [facility] Operative Reporton Operative Report Normal [facility] Partial Thromboplast Timeon 11-15-2024 aPTT Coag (Bld) [Time] 59.2 s High 24.1-36.2 [facility] Comment on above: Performed By: #### L 100.0100, L500.2500, L300.3900, L300.4310 ####[facility] [address] [place], [address] aPTT Coag (Bld) [Time] 82.6 s High 24.1-36.2 [facility] Comment on above: Performed By: #### L 300.4310 ####[facility] [address] [place], [address] ,Urineon 11-15-2024 Beta HCG ( test) Ql (U) Negative Normal [facility] Comment on above: Result Comment: Very dilute urine specimens, as indicated by a low specificgravity, may not contain paper sales representative levels of hCG.If is still suspected, a first morning urinespecimen should be collected 48 hours later and tested. Performed By: #### L 400.7600 ####[facility] [address] [place], [address] Prothrombin Time w/INRon INR Coag (PPP) [Relative time] 1.1 {INR} Normal [facility] Comment on above: Performed By: #### L 100.0100, L500.2500, L300.3900, L300.4310 ####[facility] [address] [place], [address] PT Coag (PPP) [Time] 14.0 s Normal 11.7-14.9 [facility] Comment on above: Performed By: #### L 100.0100, L500.2500, L300.3900, L300.4310 ####[facility] [address] [place], [address] CBC W/Diff, Automatedon 05- Absolute Lymph 1.95 X10 3/uL Normal 0.83-4.51 [facility] Comment on above: Performed By: #### L 100.0100, L500.4050 ####[facility] [address] [place], [address] Absolute Neut 3.7 X10 3/uL Normal 2.0-7.7 [facility] Comment on above: Performed By: #### L 100.0100, L500.4050 ####[facility] [address] [place], [address] Basophils/100 WBC (Bld) 0.8 % Normal 0-1 [facility] Comment on above: Performed By: #### L 100.0100, L500.4050 ####[facility] [address] [place], [address] Eosinophils/100 WBC (Bld) 2.1 % Normal 0-5 [facility] Comment on above: Performed By: #### L 100.0100, L500.4050 ####[facility] [address] [place], [address] Erythrocyte distribution width (RBC) [Ratio] 15.8 % High 11.6-14.6 [facility] Comment on above: Performed By: #### L 100.0100, L500.4050 ####[facility] [address] [place], [address] Hematocrit (Bld) [Volume fraction] 28.9 % Low 37-47 [facility] Comment on above: Performed By: #### L 100.0100, L500.4050 ####[facility] [address] [place], [address] Hemoglobin (Bld) [Mass/Vol] 9.3 g/dL Low 12.0-15.0 [facility] Comment on above: Performed By: #### L 100.0100, L500.4050 ####[facility] [address] [place], [address] IG% 0.300 Normal 0.0-0.9 [facility] Comment on above: Result Comment: IG% - Immature Granulocytes (promyelocytes, myelocytes andmetamyelocytes) > 1% indicates that a LEFT SHIFT is Present. Performed By: #### L 100.0100, L500.4050 ####[facility] [address] [place], [address] Lymphocytes/100 WBC (Bld) 30.8 % Normal 19-41 [facility] Comment on above: Performed By: #### L 100.0100, L500.4050 ####[facility] [address] [place], [address] MCH (RBC) [Entitic mass] 24.7 pg Low 27.0-32.0 [facility] Comment on above: Performed By: #### L 100.0100, L500.4050 ####[facility] [address] [place], [address] MCHC (RBC) [Mass/Vol] 32.2 g/dL Normal 32-36 [facility] Comment on above: Performed By: #### L 100.0100, L500.4050 ####[facility] [address] [place], [address] MCV (RBC) [Entitic vol] 76.9 fL Low 81-99 [facility] Comment on above: Performed By: #### L 100.0100, L500.4050 ####[facility] [address] [place], [address] Monocytes/100 WBC (Bld) 7.4 % Normal 0-10 [facility] Comment on above: Performed By: #### L 100.0100, L500.4050 ####[facility] [address] [place], [address] Neutrophils/100 WBC (Bld) 58.6 % Normal 47-70 [facility] Comment on above: Performed By: #### L 100.0100, L500.4050 ####[facility] [address] [place], [address] Nucleated RBC (Bld) [#/Vol] 0 10*3/uL Normal 0-5 [facility] Comment on above: Performed By: #### L 100.0100, L500.4050 ####[facility] [address] [place], [address] Platelet mean volume (Bld) [Entitic vol] 8.9 fL Normal 6.2-12.0 [facility] Comment on above: Performed By: #### L 100.0100, L500.4050 ####[facility] [address] [place], [address] Platelets (Bld) [#/Vol] 393 10*3/uL Normal 150-450 [facility] Comment on above: Performed By: #### L 100.0100, L500.4050 ####[facility] [address] [place], [address] RBC (Bld) [#/Vol] 3.76 10*6/uL Low 4.2-5.4 [facility] Comment on above: Performed By: #### L 100.0100, L500.4050 ####[facility] [address] [place], [address] RDW SD 43.0 fl Normal 35.1-43.9 [facility] Comment on above: Performed By: #### L 100.0100, L500.4050 ####[facility] [address] [place], [address] WBC (Bld) [#/Vol] 6.3 10*3/uL Normal 4.4-11.0 [facility] Comment on above: Performed By: #### L 100.0100, L500.4050 ####[facility] [address] [place], [address] Comprehensive Metabolic Prof kson 11-14-2024 Albumin [Mass/Vol] 3.4 g/dL Low 3.5-5.0 [facility] Comment on above: Performed By: #### L 100.0100, L500.4050 ####[facility] [address] [place], [address] Albumin/Globulin [Mass ratio] 1.0 {ratio} Normal 0.9-2.4 [facility] Comment on above: Performed By: #### L 100.0100, L500.4050 ####[facility] [address] [place], [address] ALK PHOS 273 U/L High 35-104 [facility] Comment on above: Performed By: #### L 100.0100, L500.4050 ####[facility] [address] [place], [address] ALT [Catalytic activity/Vol] 205 U/L High <=34 [facility] Comment on above: Performed By: #### L 100.0100, L500.4050 ####[facility] [address] [place], [address] AST [Catalytic activity/Vol] 102 U/L High <=31 [facility] Comment on above: Performed By: #### L 100.0100, L500.4050 ####[facility] [address] [place], [address] Bilirubin [Mass/Vol] 1.20 mg/dL Normal 0.00-1.30 [facility] Comment on above: Performed By: #### L 100.0100, L500.4050 ####[facility] [address] [place], [address] BUN/CRE 18.6 RATIO Normal 10-20 [facility] Comment on above: Performed By: #### L 100.0100, L500.4050 ####[facility] [address] [place], [address] Calcium [Mass/Vol] 8.8 mg/dL Normal 7.6-11.0 [facility] Comment on above: Performed By: #### L 100.0100, L500.4050 ####[facility] [address] [place], [address] Chloride [Moles/Vol] 100 mmol/L Normal 98-108 [facility] Comment on above: Performed By: #### L 100.0100, L500.4050 ####[facility] [address] [place], [address] CO2 [Moles/Vol] 17.5 mmol/L Low 21.0-32.0 [facility] Comment on above: Performed By: #### L 100.0100, L500.4050 ####[facility] [address] [place], [address] Creatinine [Mass/Vol] 2.17 mg/dL High 0.70-1.20 [facility] Comment on above: Performed By: #### L 100.0100, L500.4050 ####[facility] [address] [place], [address] ECRCL 38.54 ml/min Low 50-250 [facility] Comment on above: Performed By: #### L 100.0100, L500.4050 ####[facility] [address] [place], [address] GAP 14 Normal 5-15 [facility] Comment on above: Performed By: #### L 100.0100, L500.4050 ####[facility] [address] [place], [address] GFR/1.73 sq M.predicted among non-blacks MDRD (S/P/Bld) [Vol rate/Area] 29 mL/min/{1.73_m2} Low >60 [facility] Comment on above: Result Comment: mL/m in/1.73m2 CKD-EPI Creatinine Equation (2020) Performed By: #### L 100.0100, L500.4050 ####[facility] [address] [place], [address] Globulin (S) [Mass/Vol] 3.6 g/dL Normal 2.2-4.2 [facility] Comment on above: Performed By: #### L 100.0100, L500.4050 ####[facility] [address] [place], [address] Glucose [Mass/Vol] 146 mg/dL High 70-99 [facility] Comment on above: Performed By: #### L 100.0100, L500.4050 ####[facility] [address] [place], [address] Potassium [Moles/Vol] 3.4 mmol/L Normal 3.3-5.1 [facility] Comment on above: Performed By: #### L 100.0100, L500.4050 ####[facility] [address] [place], [address] Sodium [Moles/Vol] 131 mmol/L Low 133-145 [facility] Comment on above: Performed By: #### L 100.0100, L500.4050 ####[facility] [address] [place], [address] T PROT 7.0 g/dL Normal 5.9-8.4 [facility] Comment on above: Performed By: #### L 100.0100, L500.4050 ####[facility] [address] [place], [address] Urea nitrogen [Mass/Vol] 40 mg/dL High 4-19 [facility] Comment on above: Performed By: #### L 100.0100, L500.4050 ####[facility] [address] [place], [address] Consultation - Surgicalon Consultation - Surgical Normal [facility] Lower Ext Art Exam w/o Exerc marly 11-14-2024 Lower Ext Art Exam w/o Exercis Normal [facility] Partial Thromboplast Timeon 11-14-2024 aPTT Coag (Bld) [Time] 30.6 s Normal 24.1-36.2 [facility] Comment on above: Performed By: #### L 300.4310 ####[facility] [address] [place], [address] aPTT Coag (Bld) [Time] 55.3 s High 24.1-36.2 [facility] Comment on above: Performed By: #### L 300.4310 ####[facility] [address] [place], [address] aPTT Coag (Bld) [Time] 56.1 s High 24.1-36.2 [facility] Comment on above: Performed By: #### L 300.4310 ####[facility] [address] [place], [address] Urine Cultureon 11-14-2024 URC Culture exhibits no growth. Normal [facility] Comment on above: Performed By: #### L 400.0001, M100.678, M100.2200 ####[facility] [address] [place], [address] 12 Lead EKGon 11-13-2024 12 Lead EKG Normal [facility] CRPon 11-13-2024 C-REACTIVE PROT 10.90 mg/L High 0.0-3.0 [facility] Comment on above: Performed By: #### L 501.6710, L101.9900 ####[facility] [address] [place], [address] Chest PA and Lateralon 11-13 Chest PA and Lateral Normal [facility] Comprehensive Metabolic Prof ilon 11-13-2024 Albumin [Mass/Vol] 4.8 g/dL Normal 3.5-5.0 [facility] Comment on above: Performed By: #### L 300.3900, L300.4310, L503.6005, L500.4050, L501.4021, L503.7505, L100.0100, M200.1000 ####[facility] [address] [place], [address] Albumin/Globulin [Mass ratio] 0.9 {ratio} Normal 0.9-2.4 [facility] Comment on above: Performed By: #### L 300.3900, L300.4310, L503.6005, L500.4050, L501.4021, L503.7505, L100.0100, M200.1000 ####[facility] [address] [place], [address] ALK PHOS 459 U/L High 35-104 [facility] Comment on above: Performed By: #### L 300.3900, L300.4310, L503.6005, L500.4050, L501.4021, L503.7505, L100.0100, M200.1000 ####[facility] [address] [place], [address] ALT [Catalytic activity/Vol] 336 U/L High <=34 [facility] Comment on above: Performed By: #### L 300.3900, L300.4310, L503.6005, L500.4050, L501.4021, L503.7505, L100.0100, M200.1000 ####[facility] [address] [place], [address] AST [Catalytic activity/Vol] 197 U/L High <=31 [facility] Comment on above: Performed By: #### L 300.3900, L300.4310, L503.6005, L500.4050, L501.4021, L503.7505, L100.0100, M200.1000 ####[facility] [address] [place], [address] Bilirubin [Mass/Vol] 1.93 mg/dL High 0.00-1.30 [facility] Comment on above: Performed By: #### L 300.3900, L300.4310, L503.6005, L500.4050, L501.4021, L503.7505, L100.0100, M200.1000 ####[facility] [address] [place], [address] BUN/CRE 17.9 RATIO Normal 10-20 [facility] Comment on above: Performed By: #### L 300.3900, L300.4310, L503.6005, L500.4050, L501.4021, L503.7505, L100.0100, M200.1000 ####[facility] [address] [place], [address] Calcium [Mass/Vol] 11.0 mg/dL Normal 7.6-11.0 [facility] Comment on above: Performed By: #### L 300.3900, L300.4310, L503.6005, L500.4050, L501.4021, L503.7505, L100.0100, M200.1000 ####[facility] [address] [place], [address] Chloride [Moles/Vol] 86 mmol/L Low 98-108 [facility] Comment on above: Performed By: #### L 300.3900, L300.4310, L503.6005, L500.4050, L501.4021, L503.7505, L100.0100, M200.1000 ####[facility] [address] [place], [place], [phone] CO2 [Moles/Vol] 17.0 mmol/L Low 21.0-32.0 [facility] Comment on above: Performed By: #### L 300.3900, L300.4310, L503.6005, L500.4050, L501.4021, L503.7505, L100.0100, M200.1000 ####[facility] [address] [place], [address] Creatinine [Mass/Vol] 3.70 mg/dL High 0.70-1.20 [facility] Comment on above: Performed By: #### L 300.3900, L300.4310, L503.6005, L500.4050, L501.4021, L503.7505, L100.0100, M200.1000 ####[facility] [address] [place], [place], [phone] ECRCL 22.19 ml/min Low 50-250 [facility] Comment on above: Performed By: #### L 300.3900, L300.4310, L503.6005, L500.4050, L501.4021, L503.7505, L100.0100, M200.1000 ####[facility] [address] [place], [address] GAP 23 High 5-15 [facility] Comment on above: Performed By: #### L 300.3900, L300.4310, L503.6005, L500.4050, L501.4021, L503.7505, L100.0100, M200.1000 ####[facility] [address] [place], [place], [phone] GFR/1.73 sq M.predicted among non-blacks MDRD (S/P/Bld) [Vol rate/Area] 15 mL/min/{1.73_m2} Low >60 [facility] Comment on above: Result Comment: mL/m in/1.73m2 CKD-EPI Creatinine Equation (2020) Performed By: #### L 300.3900, L300.4310, L503.6005, L500.4050, L501.4021, L503.7505, L100.0100, M200.1000 ####[facility] [address] [place], [address] Globulin (S) [Mass/Vol] 5.5 g/dL High 2.2-4.2 [facility] Comment on above: Performed By: #### L 300.3900, L300.4310, L503.6005, L500.4050, L501.4021, L503.7505, L100.0100, M200.1000 ####[facility] [address] [place], [address] Glucose [Mass/Vol] 168 mg/dL High 70-99 [facility] Comment on above: Performed By: #### L 300.3900, L300.4310, L503.6005, L500.4050, L501.4021, L503.7505, L100.0100, M200.1000 ####[facility] [address] [place], [address] Potassium [Moles/Vol] 4.1 mmol/L Normal 3.3-5.1 [facility] Comment on above: Performed By: #### L 300.3900, L300.4310, L503.6005, L500.4050, L501.4021, L503.7505, L100.0100, M200.1000 ####[facility] [address] [place], [address] Sodium [Moles/Vol] 126 mmol/L Low 133-145 [facility] Comment on above: Performed By: #### L 300.3900, L300.4310, L503.6005, L500.4050, L501.4021, L503.7505, L100.0100, M200.1000 ####[facility] [address] [place], [address] T PROT 10.3 g/dL High 5.9-8.4 [facility] Comment on above: Performed By: #### L 300.3900, L300.4310, L503.6005, L500.4050, L501.4021, L503.7505, L100.0100, M200.1000 ####[facility] [address] [place], [address] Urea nitrogen [Mass/Vol] 66 mg/dL High 4-19 [facility] Comment on above: Performed By: #### L 300.3900, L300.4310, L503.6005, L500.4050, L501.4021, L503.7505, L100.0100, M200.1000 ####[facility] [address] [place], [address] Emergency Department Summary on 11-13-2024 Emergency Department Summary Normal [facility] Erythrocyte Sed Rateon 11-13 SED RATE 87 mm/hr High 0-30 [facility] Comment on above: Performed By: #### L 501.6710, L101.9900 ####[facility] [address] [place], [address] Foot min 3 Viewson 5 Foot min 3 Views Normal [facility] H AND P Exam - Hospitaliston 11-13-2024 H&P Exam - Hospitalist Normal [facility] L501.4021on 11-13-2024 Trop T High Sen 20 ng/L High <=14 [facility] Comment on above: Performed By: #### L 501.4021 ####[facility] [address] [place], [address] Trop T High Sen 30 ng/L High <=14 [facility] Comment on above: Performed By: #### L 300.3900, L300.4310, L503.6005, L500.4050, L501.4021, L503.7505, L100.0100, M200.1000 ####[facility] [address] [place], [address] L503.7505on 11-13-2024 Natriuretic peptide B (Bld) [Mass/Vol] 46 pg/mL Normal <=450 [facility] Comment on above: Result Comment: Hear t Failure Unlikely: < 300 pg/mLHeart Failure Likely< 50 Years: > 450 pg/mL50-75 Years: > 900 pg/mL>75 Years: > 1800 pg/mL Performed By: #### L 300.3900, L300.4310, L503.6005, L500.4050, L501.4021, L503.7505, L100.0100, M200.1000 ####[facility] [address] [place], [address] Lactic Acidon 11-13-2024 Lactate [Moles/Vol] 1.6 mmol/L Normal 0.0-2.0 [facility] Comment on above: Performed By: #### L 503.6005 ####[facility] [address] [place], [address] Lactate [Moles/Vol] 5.8 mmol/L Invalid Interpretation Code 0.0-2.0 [facility] Comment on above: Order Comment: Y Result Comment: Crit ical Result(s) Called at 1343: by: ROSSANA CARLSON. ??Results read back by same. Performed By: #### L 300.3900, L300.4310, L503.6005, L500.4050, L501.4021, L503.7505, L100.0100, M200.1000 ####[facility] [address] [place], [address] M100.678on 11-13-2024 M100.678 Pending SARS-CoV-2 (COVID 19) Negative INFLUENZA A Negative INFLUENZA B Negative RSV PCR Negative Normal [facility] Comment on above: Performed By: #### L 400.0001, M100.678, M100.2200 ####[facility] [address] [place], [address] Partial Thromboplast Timeon 11-13-2024 aPTT Coag (Bld) [Time] 73.1 s High 24.1-36.2 [facility] Comment on above: Performed By: #### L 300.4310 ####[facility] [address] [place], [address] aPTT Coag (Bld) [Time] 29.6 s Normal 24.1-36.2 [facility] Comment on above: Performed By: #### L 300.3900, L300.4310, L503.6005, L500.4050, L501.4021, L503.7505, L100.0100, M200.1000 ####[facility] [address] [place], [address] Prothrombin Time w/INRon INR Coag (PPP) [Relative time] 1.1 {INR} Normal [facility] Comment on above: Performed By: #### L 300.3900, L300.4310, L503.6005, L500.4050, L501.4021, L503.7505, L100.0100, M200.1000 ####[facility] [address] [place], [address] PT Coag (PPP) [Time] 13.9 s Normal 11.7-14.9 [facility] Comment on above: Performed By: #### L 300.3900, L300.4310, L503.6005, L500.4050, L501.4021, L503.7505, L100.0100, M200.1000 ####[facility] [address] [place], [address] Urinalysis, Completeon 11-13 CAST,HYALINE 10-25 SEEN Normal 0-5 [facility] Comment on above: Order Comment: COLLE CTOR TO SPECIFY Performed By: #### L 400.0001, M100.678, M100.2200 ####[facility] [address] [place], [address] EPI,SQUAMOUS 0-5 SEEN Normal 5-10 [facility] Comment on above: Order Comment: COLLE CTOR TO SPECIFY Performed By: #### L 400.0001, M100.678, M100.2200 ####[facility] [address] [place], [address] WBC 0-5 SEEN Normal 0-5 [facility] Comment on above: Order Comment: COLLE CTOR TO SPECIFY Performed By: #### L 400.0001, M100.678, M100.2200 ####[facility] [address] [place], [address] BACTERIA 0 SEEN Normal None Seen [facility] Comment on above: Order Comment: COLLE CTOR TO SPECIFY Performed By: #### L 400.0001, M100.678, M100.2200 ####[facility] [address] [place], [address] Mucus Ql (Urine sed) 0 SEEN Normal [facility] Comment on above: Order Comment: COLLE CTOR TO SPECIFY Performed By: #### L 400.0001, M100.678, M100.2200 ####[facility] [address] [place], [address] RBC 0 SEEN Normal 0-5 [facility] Comment on above: Order Comment: COLLE CTOR TO SPECIFY Performed By: #### L 400.0001, M100.678, M100.2200 ####[facility] [address] [place], [address] Basic Metabolic Profile (BMP )on 11-05-2024 BUN/CRE 4.7 RATIO Low 10-20 [facility] Comment on above: Performed By: #### L 500.2500 ####[facility] [address] [place], [address] Calcium [Mass/Vol] 8.6 mg/dL Normal 7.6-11.0 [facility] Comment on above: Performed By: #### L 500.2500 ####[facility] [address] [place], [address] Chloride [Moles/Vol] 110 mmol/L High 98-108 [facility] Comment on above: Performed By: #### L 500.2500 ####[facility] [address] [place], [address] CO2 [Moles/Vol] 19.7 mmol/L Low 21.0-32.0 [facility] Comment on above: Performed By: #### L 500.2500 ####[facility] [address] [place], [address] Creatinine [Mass/Vol] 0.94 mg/dL Normal 0.70-1.20 [facility] Comment on above: Performed By: #### L 500.2500 ####[facility] [facility] [address] [place], [address] ECRCL 89.97 ml/min Normal 50-250 [facility] Comment on above: Performed By: #### L 500.2500 ####[facility] [address] [place], [address] GAP 10 Normal 5-15 [facility] Comment on above: Performed By: #### L 500.2500 ####[facility] [address] [place], [address] GFR/1.73 sq M.predicted among non-blacks MDRD (S/P/Bld) [Vol rate/Area] 78 mL/min/{1.73_m2} Normal >60 [facility] Comment on above: Result Comment: mL/m in/1.73m2 CKD-EPI Creatinine Equation (2020) Performed By: #### L 500.2500 ####[facility] [address] [place], [address] Glucose [Mass/Vol] 85 mg/dL Normal 70-99 [facility] Comment on above: Performed By: #### L 500.2500 ####[facility] [address] [place], [address] Potassium [Moles/Vol] 3.7 mmol/L Normal 3.3-5.1 [facility] Comment on above: Performed By: #### L 500.2500 ####[facility] [address] [place], [address] Sodium [Moles/Vol] 139 mmol/L Normal 133-145 [facility] Comment on above: Performed By: #### L 500.2500 ####[facility] [address] [place], [address] Urea nitrogen [Mass/Vol] 4 mg/dL Normal 4-19 [facility] Comment on above: Performed By: #### L 500.2500 ####[facility] [address] [place], [address] Basic Metabolic Profile (BMP )on 11-04-2024 BUN/CRE 3.6 RATIO Low 10-20 [facility] Comment on above: Performed By: #### L 500.2500 ####[facility] [address] [place], [address] Calcium [Mass/Vol] 7.8 mg/dL Normal 7.6-11.0 [facility] Comment on above: Performed By: #### L 500.2500 ####[facility] [address] [place], [address] Chloride [Moles/Vol] 113 mmol/L High 98-108 [facility] Comment on above: Performed By: #### L 500.2500 ####[facility] [address] [place], [address] CO2 [Moles/Vol] 17.3 mmol/L Low 21.0-32.0 [facility] Comment on above: Performed By: #### L 500.2500 ####[facility] [address] [place], [address] Creatinine [Mass/Vol] 0.93 mg/dL Normal 0.70-1.20 [facility] Comment on above: Performed By: #### L 500.2500 ####[facility] [address] [place], [address] ECRCL 90.94 ml/min Normal 50-250 [facility] Comment on above: Performed By: #### L 500.2500 ####[facility] [address] [place], [address] GAP 9 Normal 5-15 [facility] Comment on above: Performed By: #### L 500.2500 ####[facility] [address] [place], [address] GFR/1.73 sq M.predicted among non-blacks MDRD (S/P/Bld) [Vol rate/Area] 79 mL/min/{1.73_m2} Normal >60 [facility] Comment on above: Result Comment: mL/m in/1.73m2 CKD-EPI Creatinine Equation (2020) Performed By: #### L 500.2500 ####[facility] [address] [place], [address] Glucose [Mass/Vol] 96 mg/dL Normal 70-99 [facility] Comment on above: Performed By: #### L 500.2500 ####[facility] [address] [place], [address] Potassium [Moles/Vol] 3.9 mmol/L Normal 3.3-5.1 [facility] Comment on above: Performed By: #### L 500.2500 ####[facility] [address] [place], [address] Sodium [Moles/Vol] 140 mmol/L Normal 133-145 [facility] Comment on above: Performed By: #### L 500.2500 ####[facility] [address] [place], [address] Urea nitrogen [Mass/Vol] 3 mg/dL Low 4-19 [facility] Comment on above: Performed By: #### L 500.2500 ####[facility] [address] [place], [address] Basic Metabolic Profile (BMP )on 11-03-2024 BUN/CRE 4.1 RATIO Low 10-20 [facility] Comment on above: Performed By: #### L 500.2500, L501.5200 ####[facility] [address] [place], [address] Calcium [Mass/Vol] 8.3 mg/dL Normal 7.6-11.0 [facility] Comment on above: Performed By: #### L 500.2500, L501.5200 ####[facility] [address] [place], [address] Chloride [Moles/Vol] 110 mmol/L High 98-108 [facility] Comment on above: Performed By: #### L 500.2500, L501.5200 ####[facility] [address] [place], [address] CO2 [Moles/Vol] 20.6 mmol/L Low 21.0-32.0 [facility] Comment on above: Performed By: #### L 500.2500, L501.5200 ####[facility] [address] [place], [address] Creatinine [Mass/Vol] 0.99 mg/dL Normal 0.70-1.20 [facility] Comment on above: Performed By: #### L 500.2500, L501.5200 ####[facility] [address] [place], [address] ECRCL 85.43 ml/min Normal 50-250 [facility] Comment on above: Performed By: #### L 500.2500, L501.5200 ####[facility] [address] [place], [address] GAP 9 Normal 5-15 [facility] Comment on above: Performed By: #### L 500.2500, L501.5200 ####[facility] [address] [place], [address] GFR/1.73 sq M.predicted among non-blacks MDRD (S/P/Bld) [Vol rate/Area] 74 mL/min/{1.73_m2} Normal >60 [facility] Comment on above: Result Comment: mL/m in/1.73m2 CKD-EPI Creatinine Equation (2020) Performed By: #### L 500.2500, L501.5200 ####[facility] [address] [place], [address] Glucose [Mass/Vol] 100 mg/dL High 70-99 [facility] Comment on above: Performed By: #### L 500.2500, L501.5200 ####[facility] [address] [place], [address] Potassium [Moles/Vol] 3.8 mmol/L Normal 3.3-5.1 [facility] Comment on above: Performed By: #### L 500.2500, L501.5200 ####[facility] [address] [place], [address] Sodium [Moles/Vol] 140 mmol/L Normal 133-145 [facility] Comment on above: Performed By: #### L 500.2500, L501.5200 ####[facility] [address] [place], [address] Urea nitrogen [Mass/Vol] 4 mg/dL Normal 4-19 [facility] Comment on above: Performed By: #### L 500.2500, L501.5200 ####[facility] [address] [place], [address] Magnesiumon 11-03-2024 Magnesium [Mass/Vol] 1.3 mg/dL Low 1.5-2.2 [facility] Comment on above: Performed By: #### L 500.2500, L501.5200 ####[facility] [address] [place], [address] Basic Metabolic Profile (BMP )on 11-02-2024 BUN/CRE 7.2 RATIO Low 10-20 [facility] Comment on above: Performed By: #### L 500.2500 ####[facility] [address] [place], [address] Calcium [Mass/Vol] 8.2 mg/dL Normal 7.6-11.0 [facility] Comment on above: Performed By: #### L 500.2500 ####[facility] [address] [place], [address] Chloride [Moles/Vol] 106 mmol/L Normal 98-108 [facility] Comment on above: Performed By: #### L 500.2500 ####[facility] [address] [place], [address] CO2 [Moles/Vol] 22.3 mmol/L Normal 21.0-32.0 [facility] Comment on above: Performed By: #### L 500.2500 ####[facility] [address] [place], [address] Creatinine [Mass/Vol] 0.96 mg/dL Normal 0.70-1.20 [facility] Comment on above: Performed By: #### L 500.2500 ####[facility] [address] [place], [address] ECRCL 88.09 ml/min Normal 50-250 [facility] Comment on above: Performed By: #### L 500.2500 ####[facility] [address] [place], [address] GAP 11 Normal 5-15 [facility] Comment on above: Performed By: #### L 500.2500 ####[facility] [address] [place], [address] GFR/1.73 sq M.predicted among non-blacks MDRD (S/P/Bld) [Vol rate/Area] 76 mL/min/{1.73_m2} Normal >60 [facility] Comment on above: Result Comment: mL/m in/1.73m2 CKD-EPI Creatinine Equation (2020) Performed By: #### L 500.2500 ####[facility] [address] [place], [address] Glucose [Mass/Vol] 79 mg/dL Normal 70-99 [facility] Comment on above: Performed By: #### L 500.2500 ####[facility] [address] [place], [address] Potassium [Moles/Vol] 3.0 mmol/L Low 3.3-5.1 [facility] Comment on above: Performed By: #### L 500.2500 ####[facility] [address] [place], [address] Sodium [Moles/Vol] 139 mmol/L Normal 133-145 [facility] Comment on above: Performed By: #### L 500.2500 ####[facility] [address] [place], [address] Urea nitrogen [Mass/Vol] 7 mg/dL Normal 4-19 [facility] Comment on above: Performed By: #### L 500.2500 ####[facility] [address] [place], [address] Basic Metabolic Profile (BMP )on 11-01-2024 BUN/CRE 8.6 RATIO Low 10-20 [facility] Comment on above: Performed By: #### L 500.2500 ####[facility] [address] [place], [address] Calcium [Mass/Vol] 8.5 mg/dL Normal 7.6-11.0 [facility] Comment on above: Performed By: #### L 500.2500 ####[facility] [address] [place], [address] Chloride [Moles/Vol] 102 mmol/L Normal 98-108 [facility] Comment on above: Performed By: #### L 500.2500 ####[facility] [address] [place], [address] CO2 [Moles/Vol] 24.0 mmol/L Normal 21.0-32.0 [facility] Comment on above: Performed By: #### L 500.2500 ####[facility] [address] [place], [address] Creatinine [Mass/Vol] 1.01 mg/dL Normal 0.70-1.20 [facility] Comment on above: Performed By: #### L 500.2500 ####[facility] [address] [place], [address] ECRCL 83.73 ml/min Normal 50-250 [facility] Comment on above: Performed By: #### L 500.2500 ####[facility] [address] [place], [address] GAP 10 Normal 5-15 [facility] Comment on above: Performed By: #### L 500.2500 ####[facility] [address] [place], [address] GFR/1.73 sq M.predicted among non-blacks MDRD (S/P/Bld) [Vol rate/Area] 72 mL/min/{1.73_m2} Normal >60 [facility] Comment on above: Result Comment: mL/m in/1.73m2 CKD-EPI Creatinine Equation (2020) Performed By: #### L 500.2500 ####[facility] [address] [place], [address] Glucose [Mass/Vol] 90 mg/dL Normal 70-99 [facility] Comment on above: Performed By: #### L 500.2500 ####[facility] [address] [place], [address] Potassium [Moles/Vol] 3.2 mmol/L Low 3.3-5.1 [facility] Comment on above: Performed By: #### L 500.2500 ####[facility] [address] [place], [address] Sodium [Moles/Vol] 136 mmol/L Normal 133-145 [facility] Comment on above: Performed By: #### L 500.2500 ####[facility] [address] [place], [address] Urea nitrogen [Mass/Vol] 9 mg/dL Normal 4-19 [facility] Comment on above: Performed By: #### L 500.2500 ####[facility] [address] [place], [address] Basic Metabolic Profile (BMP )on 10-31-2024 BUN/CRE 10.7 RATIO Normal 10-20 [facility] Comment on above: Performed By: #### L 100.0500, L500.2500 ####[facility] [address] [place], [address] Calcium [Mass/Vol] 8.6 mg/dL Normal 7.6-11.0 [facility] Comment on above: Performed By: #### L 100.0500, L500.2500 ####[facility] [address] [place], [address] Chloride [Moles/Vol] 100 mmol/L Normal 98-108 [facility] Comment on above: Performed By: #### L 100.0500, L500.2500 ####[facility] [address] [place], [address] CO2 [Moles/Vol] 21.6 mmol/L Normal 21.0-32.0 [facility] Comment on above: Performed By: #### L 100.0500, L500.2500 ####[facility] [address] [place], [address] Creatinine [Mass/Vol] 1.04 mg/dL Normal 0.70-1.20 [facility] Comment on above: Performed By: #### L 100.0500, L500.2500 ####[facility] [address] [place], [address] ECRCL 81.32 ml/min Normal 50-250 [facility] Comment on above: Performed By: #### L 100.0500, L500.2500 ####[facility] [address] [place], [address] GAP 13 Normal 5-15 [facility] Comment on above: Performed By: #### L 100.0500, L500.2500 ####[facility] [address] [place], [address] GFR/1.73 sq M.predicted among non-blacks MDRD (S/P/Bld) [Vol rate/Area] 69 mL/min/{1.73_m2} Normal >60 [facility] Comment on above: Result Comment: mL/m in/1.73m2 CKD-EPI Creatinine Equation (2020) Performed By: #### L 100.0500, L500.2500 ####[facility] [address] [place], [address] Glucose [Mass/Vol] 91 mg/dL Normal 70-99 [facility] Comment on above: Performed By: #### L 100.0500, L500.2500 ####[facility] [address] [place], [address] Potassium [Moles/Vol] 3.2 mmol/L Low 3.3-5.1 [facility] Comment on above: Performed By: #### L 100.0500, L500.2500 ####[facility] [address] [place], [address] Sodium [Moles/Vol] 135 mmol/L Normal 133-145 [facility] Comment on above: Performed By: #### L 100.0500, L500.2500 ####[facility] [address] [place], [address] Urea nitrogen [Mass/Vol] 11 mg/dL Normal 4-19 [facility] Comment on above: Performed By: #### L 100.0500, L500.2500 ####[facility] [address] [place], [address] CBC-Complete Blood Cnt No Di ffon 10-31-2024 Erythrocyte distribution width (RBC) [Ratio] 15.1 % High 11.6-14.6 [facility] Comment on above: Performed By: #### L 100.0500, L500.2500 ####[facility] [address] [place], [address] Hematocrit (Bld) [Volume fraction] 28.9 % Low 37-47 [facility] Comment on above: Performed By: #### L 100.0500, L500.2500 ####[facility] [address] [place], [address] Hemoglobin (Bld) [Mass/Vol] 8.9 g/dL Low 12.0-15.0 [facility] Comment on above: Performed By: #### L 100.0500, L500.2500 ####[facility] [address] [place], [address] MCH (RBC) [Entitic mass] 24.4 pg Low 27.0-32.0 [facility] Comment on above: Performed By: #### L 100.0500, L500.2500 ####[facility] [address] [place], [address] MCHC (RBC) [Mass/Vol] 30.8 g/dL Low 32-36 [facility] Comment on above: Performed By: #### L 100.0500, L500.2500 ####[facility] [address] [place], [address] MCV (RBC) [Entitic vol] 79.2 fL Low 81-99 [facility] Comment on above: Performed By: #### L 100.0500, L500.2500 ####[facility] [address] [place], [address] Platelet mean volume (Bld) [Entitic vol] 9.0 fL Normal 6.2-12.0 [facility] Comment on above: Performed By: #### L 100.0500, L500.2500 ####[facility] [address] [place], [address] Platelets (Bld) [#/Vol] 357 10*3/uL Normal 150-450 [facility] Comment on above: Performed By: #### L 100.0500, L500.2500 ####[facility] [address] [place], [address] RBC (Bld) [#/Vol] 3.65 10*6/uL Low 4.2-5.4 [facility] Comment on above: Performed By: #### L 100.0500, L500.2500 ####[facility] [address] [place], [address] RDW SD 43.3 fl Normal 35.1-43.9 [facility] Comment on above: Performed By: #### L 100.0500, L500.2500 ####[facility] [address] [place], [address] WBC (Bld) [#/Vol] 4.9 10*3/uL Normal 4.4-11.0 [facility] Comment on above: Performed By: #### L 100.0500, L500.2500 ####[facility] [address] [place], [address] Basic Metabolic Profile (BMP )on 10-30-2024 BUN/CRE 14.8 RATIO Normal 10-20 [facility] Comment on above: Performed By: #### L 100.0100, L500.2500 ####[facility] [address] [place], [address] Calcium [Mass/Vol] 8.6 mg/dL Normal 7.6-11.0 [facility] Comment on above: Performed By: #### L 100.0100, L500.2500 ####[facility] [address] [place], [address] Chloride [Moles/Vol] 100 mmol/L Normal 98-108 [facility] Comment on above: Performed By: #### L 100.0100, L500.2500 ####[facility] [address] [place], [address] CO2 [Moles/Vol] 22.0 mmol/L Normal 21.0-32.0 [facility] Comment on above: Performed By: #### L 100.0100, L500.2500 ####[facility] [address] [place], [address] Creatinine [Mass/Vol] 1.26 mg/dL High 0.70-1.20 [facility] Comment on above: Performed By: #### L 100.0100, L500.2500 ####[facility] [address] [place], [address] ECRCL 67.12 ml/min Normal 50-250 [facility] Comment on above: Performed By: #### L 100.0100, L500.2500 ####[facility] [address] [place], [address] GAP 14 Normal 5-15 [facility] Comment on above: Performed By: #### L 100.0100, L500.2500 ####[facility] [address] [place], [address] GFR/1.73 sq M.predicted among non-blacks MDRD (S/P/Bld) [Vol rate/Area] 55 mL/min/{1.73_m2} Low >60 [facility] Comment on above: Result Comment: mL/m in/1.73m2 CKD-EPI Creatinine Equation (2020) Performed By: #### L 100.0100, L500.2500 ####[facility] [address] [place], [address] Glucose [Mass/Vol] 96 mg/dL Normal 70-99 [facility] Comment on above: Performed By: #### L 100.0100, L500.2500 ####[facility] [address] [place], [address] Potassium [Moles/Vol] 3.6 mmol/L Normal 3.3-5.1 [facility] Comment on above: Performed By: #### L 100.0100, L500.2500 ####[facility] [address] [place], [address] Sodium [Moles/Vol] 135 mmol/L Normal 133-145 [facility] Comment on above: Performed By: #### L 100.0100, L500.2500 ####[facility] [address] [place], [address] Urea nitrogen [Mass/Vol] 19 mg/dL Normal 4-19 [facility] Comment on above: Performed By: #### L 100.0100, L500.2500 ####[facility] [address] [place], [address] CBC W/Diff, Automatedon 05-0 6-2025 Absolute Lymph 2.28 X10 3/uL Normal 0.83-4.51 [facility] Comment on above: Performed By: #### L 100.0100, L500.2500 ####[facility] [address] [place], [address] Absolute Neut 2.8 X10 3/uL Normal 2.0-7.7 [facility] Comment on above: Performed By: #### L 100.0100, L500.2500 ####[facility] [address] [place], [address] Basophils/100 WBC (Bld) 0.9 % Normal 0-1 [facility] Comment on above: Performed By: #### L 100.0100, L500.2500 ####[facility] [address] [place], [address] Eosinophils/100 WBC (Bld) 2.6 % Normal 0-5 [facility] Comment on above: Performed By: #### L 100.0100, L500.2500 ####[facility] [address] [place], [address] Erythrocyte distribution width (RBC) [Ratio] 15.1 % High 11.6-14.6 [facility] Comment on above: Performed By: #### L 100.0100, L500.2500 ####[facility] [address] [place], [address] Hematocrit (Bld) [Volume fraction] 28.3 % Low 37-47 [facility] Comment on above: Performed By: #### L 100.0100, L500.2500 ####[facility] [address] [place], [address] Hemoglobin (Bld) [Mass/Vol] 9.1 g/dL Low 12.0-15.0 [facility] Comment on above: Performed By: #### L 100.0100, L500.2500 ####[facility] [address] [place], [address] IG% 0.200 Normal 0.0-0.9 [facility] Comment on above: Result Comment: IG% - Immature Granulocytes (promyelocytes, myelocytes andmetamyelocytes) > 1% indicates that a LEFT SHIFT is Present. Performed By: #### L 100.0100, L500.2500 ####[facility] [address] [place], [address] Lymphocytes/100 WBC (Bld) 39.1 % Normal 19-41 [facility] Comment on above: Performed By: #### L 100.0100, L500.2500 ####[facility] [address] [place], [address] MCH (RBC) [Entitic mass] 24.7 pg Low 27.0-32.0 [facility] Comment on above: Performed By: #### L 100.0100, L500.2500 ####[facility] [address] [place], [address] MCHC (RBC) [Mass/Vol] 32.2 g/dL Normal 32-36 [facility] Comment on above: Performed By: #### L 100.0100, L500.2500 ####[facility] [address] [place], [address] MCV (RBC) [Entitic vol] 76.9 fL Low 81-99 [facility] Comment on above: Performed By: #### L 100.0100, L500.2500 ####[facility] [address] [place], [address] Monocytes/100 WBC (Bld) 8.9 % Normal 0-10 [facility] Comment on above: Performed By: #### L 100.0100, L500.2500 ####[facility] [address] [place], [address] Neutrophils/100 WBC (Bld) 48.3 % Normal 47-70 [facility] Comment on above: Performed By: #### L 100.0100, L500.2500 ####[facility] [address] [place], [address] Nucleated RBC (Bld) [#/Vol] 0 10*3/uL Normal 0-5 [facility] Comment on above: Performed By: #### L 100.0100, L500.2500 ####[facility] [address] [place], [address] Platelet mean volume (Bld) [Entitic vol] 9.0 fL Normal 6.2-12.0 [facility] Comment on above: Performed By: #### L 100.0100, L500.2500 ####[facility] [address] [place], [address] Platelets (Bld) [#/Vol] 403 10*3/uL Normal 150-450 [facility] Comment on above: Performed By: #### L 100.0100, L500.2500 ####[facility] [address] [place], [address] RBC (Bld) [#/Vol] 3.68 10*6/uL Low 4.2-5.4 [facility] Comment on above: Performed By: #### L 100.0100, L500.2500 ####[facility] [address] [place], [address] RDW SD 41.8 fl Normal 35.1-43.9 [facility] Comment on above: Performed By: #### L 100.0100, L500.2500 ####[facility] [address] [place], [address] WBC (Bld) [#/Vol] 5.8 10*3/uL Normal 4.4-11.0 [facility] Comment on above: Performed By: #### L 100.0100, L500.2500 ####[facility] [address] [place], [address] Basic Metabolic Profile (BMP )on 10-29-2024 BUN/CRE 15.4 RATIO Normal 10-20 [facility] Comment on above: Performed By: #### L 501.5200, L100.0100, L500.2500, L501.2300 ####[facility] [address] [place], [address] Calcium [Mass/Vol] 8.5 mg/dL Normal 7.6-11.0 [facility] Comment on above: Performed By: #### L 501.5200, L100.0100, L500.2500, L501.2300 ####[facility] [address] [place], [address] Chloride [Moles/Vol] 95 mmol/L Low 98-108 [facility] Comment on above: Performed By: #### L 501.5200, L100.0100, L500.2500, L501.2300 ####[facility] [address] [place], [address] CO2 [Moles/Vol] 23.1 mmol/L Normal 21.0-32.0 [facility] Comment on above: Performed By: #### L 501.5200, L100.0100, L500.2500, L501.2300 ####[facility] [address] [place], [address] Creatinine [Mass/Vol] 1.93 mg/dL High 0.70-1.20 [facility] Comment on above: Performed By: #### L 501.5200, L100.0100, L500.2500, L501.2300 ####[facility] [address] [place], [address] ECRCL 43.82 ml/min Low 50-250 [facility] Comment on above: Performed By: #### L 501.5200, L100.0100, L500.2500, L501.2300 ####[facility] [address] [place], [address] GAP 12 Normal 5-15 [facility] Comment on above: Performed By: #### L 501.5200, L100.0100, L500.2500, L501.2300 ####[facility] [address] [place], [address] GFR/1.73 sq M.predicted among non-blacks MDRD (S/P/Bld) [Vol rate/Area] 33 mL/min/{1.73_m2} Low >60 [facility] Comment on above: Result Comment: mL/m in/1.73m2 CKD-EPI Creatinine Equation (2020) Performed By: #### L 501.5200, L100.0100, L500.2500, L501.2300 ####[facility] [address] [place], [address] Glucose [Mass/Vol] 100 mg/dL High 70-99 [facility] Comment on above: Performed By: #### L 501.5200, L100.0100, L500.2500, L501.2300 ####[facility] [address] [place], [address] Potassium [Moles/Vol] 3.5 mmol/L Normal 3.3-5.1 [facility] Comment on above: Performed By: #### L 501.5200, L100.0100, L500.2500, L501.2300 ####[facility] [address] [place], [address] Sodium [Moles/Vol] 131 mmol/L Low 133-145 [facility] Comment on above: Performed By: #### L 501.5200, L100.0100, L500.2500, L501.2300 ####[facility] [address] [place], [address] Urea nitrogen [Mass/Vol] 30 mg/dL High 4-19 [facility] Comment on above: Performed By: #### L 501.5200, L100.0100, L500.2500, L501.2300 ####[facility] [address] [place], [address] CBC W/Diff, Automatedon 05-0 5-2025 Absolute Lymph 1.54 X10 3/uL Normal 0.83-4.51 [facility] Comment on above: Performed By: #### L 501.5200, L100.0100, L500.2500, L501.2300 ####[facility] [address] [place], [address] Absolute Neut 3.2 X10 3/uL Normal 2.0-7.7 [facility] Comment on above: Performed By: #### L 501.5200, L100.0100, L500.2500, L501.2300 ####[facility] [address] [place], [address] Basophils/100 WBC (Bld) 0.6 % Normal 0-1 [facility] Comment on above: Performed By: #### L 501.5200, L100.0100, L500.2500, L501.2300 ####[facility] [address] [place], [address] Eosinophils/100 WBC (Bld) 1.5 % Normal 0-5 [facility] Comment on above: Performed By: #### L 501.5200, L100.0100, L500.2500, L501.2300 ####[facility] [address] [place], [address] Erythrocyte distribution width (RBC) [Ratio] 15.2 % High 11.6-14.6 [facility] Comment on above: Performed By: #### L 501.5200, L100.0100, L500.2500, L501.2300 ####[facility] [address] [place], [address] Hematocrit (Bld) [Volume fraction] 27.2 % Low 37-47 [facility] Comment on above: Performed By: #### L 501.5200, L100.0100, L500.2500, L501.2300 ####[facility] [address] [place], [address] Hemoglobin (Bld) [Mass/Vol] 8.8 g/dL Low 12.0-15.0 [facility] Comment on above: Performed By: #### L 501.5200, L100.0100, L500.2500, L501.2300 ####[facility] [address] [place], [address] IG% 0.400 Normal 0.0-0.9 [facility] Comment on above: Result Comment: IG% - Immature Granulocytes (promyelocytes, myelocytes andmetamyelocytes) > 1% indicates that a LEFT SHIFT is Present. Performed By: #### L 501.5200, L100.0100, L500.2500, L501.2300 ####[facility] [address] [place], [address] Lymphocytes/100 WBC (Bld) 28.9 % Normal 19-41 [facility] Comment on above: Performed By: #### L 501.5200, L100.0100, L500.2500, L501.2300 ####[facility] [address] [place], [address] MCH (RBC) [Entitic mass] 24.4 pg Low 27.0-32.0 [facility] Comment on above: Performed By: #### L 501.5200, L100.0100, L500.2500, L501.2300 ####[facility] [address] [place], [address] MCHC (RBC) [Mass/Vol] 32.4 g/dL Normal 32-36 [facility] Comment on above: Performed By: #### L 501.5200, L100.0100, L500.2500, L501.2300 ####[facility] [address] [place], [address] MCV (RBC) [Entitic vol] 75.3 fL Low 81-99 [facility] Comment on above: Performed By: #### L 501.5200, L100.0100, L500.2500, L501.2300 ####[facility] [address] [place], [address] Monocytes/100 WBC (Bld) 9.4 % Normal 0-10 [facility] Comment on above: Performed By: #### L 501.5200, L100.0100, L500.2500, L501.2300 ####[facility] [address] [place], [address] Neutrophils/100 WBC (Bld) 59.2 % Normal 47-70 [facility] Comment on above: Performed By: #### L 501.5200, L100.0100, L500.2500, L501.2300 ####[facility] [address] [place], [address] Nucleated RBC (Bld) [#/Vol] 0 10*3/uL Normal 0-5 [facility] Comment on above: Performed By: #### L 501.5200, L100.0100, L500.2500, L501.2300 ####[facility] [address] [place], [address] Platelet mean volume (Bld) [Entitic vol] 9.3 fL Normal 6.2-12.0 [facility] Comment on above: Performed By: #### L 501.5200, L100.0100, L500.2500, L501.2300 ####[facility] [address] [place], [address] Platelets (Bld) [#/Vol] 396 10*3/uL Normal 150-450 [facility] Comment on above: Performed By: #### L 501.5200, L100.0100, L500.2500, L501.2300 ####[facility] [address] [place], [address] RBC (Bld) [#/Vol] 3.61 10*6/uL Low 4.2-5.4 [facility] Comment on above: Performed By: #### L 501.5200, L100.0100, L500.2500, L501.2300 ####[facility] [address] [place], [address] RDW SD 41.3 fl Normal 35.1-43.9 [facility] Comment on above: Performed By: #### L 501.5200, L100.0100, L500.2500, L501.2300 ####[facility] [address] [place], [address] WBC (Bld) [#/Vol] 5.3 10*3/uL Normal 4.4-11.0 [facility] Comment on above: Performed By: #### L 501.5200, L100.0100, L500.2500, L501.2300 ####[facility] [address] [place], [address] CDIFF (PCR)on 10-29-2024 CDIFF Is the patient recei ving laxatives? N New/unexplained onset of 3 or more stools in past 24 hrs? Y Pending 027 027 NAP1-B1 Presumptive Negative *for epidemiolologic???use C. Diff PCR Negative- No toxigenic C. Diff Detected Normal [facility] Comment on above: Performed By: #### M 100.6796 ####[facility] [address] [place], [address] ENTERIC PATHOGEN PANEL STOOL on 10-29-2024 EP PANEL CAMPYLOBACTER Not Detected Norovirus Not Detected Rotavirus Not Detected Salmonella Not Detected Shiga Toxin Not Detected Shigella sp. Not Detected VIBRIO Not Detected Yersinia Not Detected Normal [facility] Comment on above: Performed By: #### M 100.637 ####[facility] [address] [place], [address] Magnesiumon 10-29-2024 Magnesium [Mass/Vol] 1.5 mg/dL Normal 1.5-2.2 [facility] Comment on above: Performed By: #### L 501.5200, L100.0100, L500.2500, L501.2300 ####[facility] [address] [place], [address] Phosphoruson 10-29-2024 Phosphate [Mass/Vol] 4.0 mg/dL Normal 2.7-4.5 [facility] Comment on above: Performed By: #### L 501.5200, L100.0100, L500.2500, L501.2300 ####[facility] [address] [place], [address] Basic Metabolic Profile (BMP )on 10-28-2024 BUN/CRE 10.4 RATIO Normal 10-20 [facility] Comment on above: Performed By: #### L 100.0100, L501.5200, L500.2500 ####[facility] [address] [place], [address] Calcium [Mass/Vol] 10.5 mg/dL Normal 7.6-11.0 [facility] Comment on above: Performed By: #### L 100.0100, L501.5200, L500.2500 ####[facility] [address] [place], [address] Chloride [Moles/Vol] 81 mmol/L Low 98-108 [facility] Comment on above: Performed By: #### L 100.0100, L501.5200, L500.2500 ####[facility] [address] [place], [address] CO2 [Moles/Vol] 20.9 mmol/L Low 21.0-32.0 [facility] Comment on above: Performed By: #### L 100.0100, L501.5200, L500.2500 ####[facility] [address] [place], [address] Creatinine [Mass/Vol] 3.36 mg/dL High 0.70-1.20 [facility] Comment on above: Performed By: #### L 100.0100, L501.5200, L500.2500 ####[facility] [address] [place], [address] ECRCL 24.64 ml/min Low 50-250 [facility] Comment on above: Performed By: #### L 100.0100, L501.5200, L500.2500 ####[facility] [address] [place], [address] GAP 26 High 5-15 [facility] Comment on above: Performed By: #### L 100.0100, L501.5200, L500.2500 ####[facility] [address] [place], [address] GFR/1.73 sq M.predicted among non-blacks MDRD (S/P/Bld) [Vol rate/Area] 17 mL/min/{1.73_m2} Low >60 [facility] Comment on above: Result Comment: mL/m in/1.73m2 CKD-EPI Creatinine Equation (2020) Performed By: #### L 100.0100, L501.5200, L500.2500 ####[facility] [address] [place], [address] Glucose [Mass/Vol] 165 mg/dL High 70-99 [facility] Comment on above: Performed By: #### L 100.0100, L501.5200, L500.2500 ####[facility] [address] [place], [address] Potassium [Moles/Vol] 4.5 mmol/L Normal 3.3-5.1 [facility] Comment on above: Result Comment: Hemo lysis present, Results??could be affected.?? Performed By: #### L 100.0100, L501.5200, L500.2500 ####[facility] [address] [place], [address] Sodium [Moles/Vol] 127 mmol/L Low 133-145 [facility] Comment on above: Performed By: #### L 100.0100, L501.5200, L500.2500 ####[facility] [address] [place], [address] Urea nitrogen [Mass/Vol] 35 mg/dL High 4-19 [facility] Comment on above: Performed By: #### L 100.0100, L501.5200, L500.2500 ####[facility] [address] [place], [address] CBC W/Diff, Automatedon 05-0 Absolute Lymph 2.13 X10 3/uL Normal 0.83-4.51 [facility] Comment on above: Performed By: #### L 100.0100, L501.5200, L500.2500 ####[facility] [address] [place], [address] Absolute Neut 9.2 X10 3/uL High 2.0-7.7 [facility] Comment on above: Performed By: #### L 100.0100, L501.5200, L500.2500 ####[facility] [address] [place], [address] Basophils/100 WBC (Bld) 0.4 % Normal 0-1 [facility] Comment on above: Performed By: #### L 100.0100, L501.5200, L500.2500 ####[facility] [address] [place], [address] Eosinophils/100 WBC (Bld) 0.1 % Normal 0-5 [facility] Comment on above: Performed By: #### L 100.0100, L501.5200, L500.2500 ####[facility] [address] [place], [address] Erythrocyte distribution width (RBC) [Ratio] 15.5 % High 11.6-14.6 [facility] Comment on above: Performed By: #### L 100.0100, L501.5200, L500.2500 ####[facility] [address] [place], [address] Hematocrit (Bld) [Volume fraction] 38.3 % Normal 37-47 [facility] Comment on above: Performed By: #### L 100.0100, L501.5200, L500.2500 ####[facility] [address] [place], [address] Hemoglobin (Bld) [Mass/Vol] 12.2 g/dL Normal 12.0-15.0 [facility] Comment on above: Performed By: #### L 100.0100, L501.5200, L500.2500 ####[facility] [address] [place], [address] IG% 0.500 Normal 0.0-0.9 [facility] Comment on above: Result Comment: IG% - Immature Granulocytes (promyelocytes, myelocytes andmetamyelocytes) > 1% indicates that a LEFT SHIFT is Present. Performed By: #### L 100.0100, L501.5200, L500.2500 ####[facility] [address] [place], [address] Lymphocytes/100 WBC (Bld) 17.1 % Low 19-41 [facility] Comment on above: Performed By: #### L 100.0100, L501.5200, L500.2500 ####[facility] [address] [place], [address] MCH (RBC) [Entitic mass] 24.4 pg Low 27.0-32.0 [facility] Comment on above: Performed By: #### L 100.0100, L501.5200, L500.2500 ####[facility] [address] [place], [address] MCHC (RBC) [Mass/Vol] 31.9 g/dL Low 32-36 [facility] Comment on above: Performed By: #### L 100.0100, L501.5200, L500.2500 ####[facility] [address] [place], [address] MCV (RBC) [Entitic vol] 76.4 fL Low 81-99 [facility] Comment on above: Performed By: #### L 100.0100, L501.5200, L500.2500 ####[facility] [address] [place], [address] Monocytes/100 WBC (Bld) 7.7 % Normal 0-10 [facility] Comment on above: Performed By: #### L 100.0100, L501.5200, L500.2500 ####[facility] [address] [place], [address] Neutrophils/100 WBC (Bld) 74.2 % High 47-70 [facility] Comment on above: Performed By: #### L 100.0100, L501.5200, L500.2500 ####[facility] [address] [place], [address] Nucleated RBC (Bld) [#/Vol] 0 10*3/uL Normal 0-5 [facility] Comment on above: Performed By: #### L 100.0100, L501.5200, L500.2500 ####[facility] [address] [place], [address] Platelet mean volume (Bld) [Entitic vol] 10.1 fL Normal 6.2-12.0 [facility] Comment on above: Performed By: #### L 100.0100, L501.5200, L500.2500 ####[facility] [address] [place], [address] Platelets (Bld) [#/Vol] 675 10*3/uL High 150-450 [facility] Comment on above: Performed By: #### L 100.0100, L501.5200, L500.2500 ####[facility] [address] [place], [address] RBC (Bld) [#/Vol] 5.01 10*6/uL Normal 4.2-5.4 [facility] Comment on above: Performed By: #### L 100.0100, L501.5200, L500.2500 ####[facility] [address] [place], [address] RDW SD 41.5 fl Normal 35.1-43.9 [facility] Comment on above: Performed By: #### L 100.0100, L501.5200, L500.2500 ####[facility] [address] [place], [address] WBC (Bld) [#/Vol] 12.4 10*3/uL High 4.4-11.0 [facility] Comment on above: Performed By: #### L 100.0100, L501.5200, L500.2500 ####[facility] [address] [place], [address] Emergency Department Summary on 10-28-2024 Emergency Department Summary Normal [facility] H AND P Exam - Hospitaliston 10-28-2024 H&P Exam - Hospitalist Normal [facility] Magnesiumon 10-28-2024 Magnesium [Mass/Vol] 1.7 mg/dL Normal 1.5-2.2 [facility] Comment on above: Performed By: #### L 100.0100, L501.5200, L500.2500 ####[facility] [address] [place], [place], [address] ALLIED HEALTHon 10-26-2024 ALLIED HEALTH HNO ID: [id number] Author: STEFANY CALVERT RN Service: Wound/Ostomy Author [...] Used a Large Ostomy Ring (Cut About 1/2" Off Edges) Filled In Crease At 3 O'Clock With Extra Piece Of Ostomy Barrier Ring Cut The Pouch Opening 1 1/2" x 1 1/4" Oval (Coloplast 2Pc Pouch #24707 Convex Wafer #[id number]) Placed Attached 2pc Pouch Over Over Stoma [...] Type: Colostomy Size/Diameter: 1 1/2 x 1 1/4" Oval Location: LLQ Protrusion: Flush. Mucosal condition and color: Red Moist Mucocutaneous junction: Intact Peristomal Skin: Denuded Red Painful Location of Skin Impairment: 9 O'clock Character of output: Yellow Liquid With Small Particles Noted Emptying frequency per day: Patient Independent Recommended Supplies: Coloplast 2pc High Output #08737 Pouch attached to drainage bag Coloplast #31599 Convex Wafer Cut To 1 1/2 x 1 1/4" Oval Lejunior #7806 Large Barrier Ring [place] Barrier Extenders # [id number] Please Advise Wound Care [phone] If You Have Difficulty Getting Supplies From Cart Room. Patient tolerated the change well. Supplies at bedside. If additional ostomy supplies are needed, please call [facility] [employer] ([phone]) for above mentioned supplies. If supplies are unavailable in [facility] [employer], please secure chat "[facility] Nurses" or call extension [phone] to request more supplies. Normal [facility] CBC panel Auto (Bld)on 10-26 Erythrocyte distribution width (RBC) [Ratio] 14.7 % Normal 11.5-15.0 [facility] Comment on above: Order Comment: Speci men Type: BLOOD SPECIMEN Ordering Facility: [facility] Address: [address] [place] [address] Performed By: #### 5 7021-8 #### [facility] CLIA [id number] [address] [place] [place] [address] OF [facility] Hematocrit (Bld) [Volume fraction] 29.9 % Low 36.0-46.0 [facility] Comment on above: Order Comment: Speci men Type: BLOOD SPECIMEN Ordering Facility: [facility] Address: [address] [place] [address] Performed By: #### 5 7021-8 #### [facility] CLIA [id number] [address] [place] [place] [address] OF [place] Hemoglobin (Bld) [Mass/Vol] 9.2 g/dL Low 11.5-15.5 [facility] Comment on above: Order Comment: Speci men Type: BLOOD SPECIMEN Ordering Facility: [facility] Address: [address] [place] [address] Performed By: #### 5 7021-8 #### [facility] CLIA [id number] [address] [place] [address] [place] MCH (RBC) [Entitic mass] 24.1 pg Low 26.0-34.0 [facility] Comment on above: Order Comment: Speci men Type: BLOOD SPECIMEN Ordering Facility: [facility] Address: [address] [place] [address] Performed By: #### 5 7021-8 #### [facility] CLIA [id number] [address] [place] [address] [place] MCHC (RBC) [Mass/Vol] 30.8 g/dL Normal 30.5-36.0 [facility] Comment on above: Order Comment: Speci men Type: BLOOD SPECIMEN Ordering Facility: [facility] Address: [address] [place] [address] Performed By: #### 5 7021-8 #### [facility] CLIA [id number] [address] [place] [address] [place] MCV (RBC) [Entitic vol] 78.5 fL Low 80.0-100.0 [facility] Comment on above: Order Comment: Speci men Type: BLOOD SPECIMEN Ordering Facility: [facility] Address: [address] [place] [address] Performed By: #### 5 7021-8 #### [facility] CLIA [id number] [address] [place] [address] [place] Nucleated RBC (Bld) [#/Vol] 10*3/uL Normal <0.01 [facility] Comment on above: Order Comment: Speci men Type: BLOOD SPECIMEN Ordering Facility: [facility] Address: [address] [place] [address] Performed By: #### 5 7021-8 #### [facility] CLIA [id number] [address] [place] [address] [place] Platelet mean volume (Bld) [Entitic vol] 8.9 fL Low 9.0-12.7 [facility] Comment on above: Order Comment: Speci men Type: BLOOD SPECIMEN Ordering Facility: [facility] Address: [address] [place] [address] Performed By: #### 5 7021-8 #### [facility] CLIA [id number] [address] [place] [address] [place] Platelets (Bld) [#/Vol] 371 10*3/uL Normal 150-400 [facility] Comment on above: Order Comment: Speci men Type: BLOOD SPECIMEN Ordering Facility: [facility] Address: [address] [place] [address] Performed By: #### 5 7021-8 #### [facility] CLIA [id number] [address] [place] [address] [place] RBC (Bld) [#/Vol] 3.81 10*6/uL Low 3.90-5.20 [facility] Comment on above: Order Comment: Speci men Type: BLOOD SPECIMEN Ordering Facility: [facility] Address: [address] [place] [address] Performed By: #### 5 7021-8 #### [facility] CLIA [id number] [address] [place] [id number] [facility] [place] WBC (Bld) [#/Vol] 4.79 10*3/uL Normal 3.70-11.00 [facility] Comment on above: Order Comment: Speci men Type: BLOOD SPECIMEN Ordering Facility: [facility] Address: [facility] [place] [address] Performed By: #### 5 7021-8 #### [facility] CLIA [id number] [address] [id number] [facility] CNDSon 10-26-2024 CNDS HNO ID: [id number] Author: WILLIS FINCH DO Service: Hospital Medicine Author Type: Physician Type: Discharge Summary Filed: 10/26/2024 15:42 Note Text: DISCHARGE SUMMARY PATIENT NAME: Daly Estrella Lover ADMISSION DATE: 10/19/2024 DISCHARGE DATE: 10/26/2024 ATTENDING PHYSICIAN: Willis Finch DO Code Status: Full Code CONSULTING TEAMS [...] resection with ostomy Patient [facility] an [facility] ED due to high output ostomy She had evidence of renal failure as well as multiple electrolyte abnormalities (see below) Gastroenterology consulted C. diff negative Stool PCR negative Home Imodium dose was increased Ostomy care offered Output did lessen Patient will follow[facility] with her surgeon Dr. Smith as well as transplant surgeon Dr. Devine Acute kidney injury Creatinine 2.8 in community [facility] ED Likely secondary to GI losses Patient given IV fluids Creatinine normalized by discharge Hyponatremia Sodium 130 in [facility] ED Likely secondary to GI losses Patient given IV fluids Hypokalemia Potassium 3.3 in [facility] ED Likely secondary to GI losses Supplementation [...] evidence of osteomyelitis I spoke with Dr. Mccarthy, he had no immediate plans for surgical intervention this admission Local wound care offered Patient will follow-up with Dr. Mccarthy in the outpatient setting Therapeutic Lovenox continued Chronic comorbidities Bipolar disorder Anxiety Hx of substance abuse Patient discharged home with home health care on 10/26. PHYSICAL EXAM: BP 95/62 Pulse 111 Temp (Src) 98.3 (Oral) Resp 18 Ht 5' 7" (1.70m) Wt 190 lb 7.6 oz (86.4kg) [...] These medications were sent to e- [id number] [place] [address] [address] (more content not included)... Normal [facility] Comprehensive metabolic 2000 panelon 10-26-2024 Albumin [Mass/Vol] 3.0 g/dL Low 3.2-5.0 [facility] Comment on above: Order Comment: Dora finch Type: BLOOD SPECIMEN Ordering Facility: [facility] Address: [address] [id number] Performed By: #### 5 7021-8 #### [facility] CLIA [id number] [address] [place] [address] [place] ALP [Catalytic activity/Vol] 125 U/L High 45-117 [facility] Comment on above: Order Comment: Dora finch Type: BLOOD SPECIMEN Ordering Facility: [facility] Address: [address] [place] [address] Performed By: #### 5 7021-8 #### [facility] CLIA [id number] [address] [place] [address] [place] ALT [Catalytic activity/Vol] 16 U/L Normal 13-61 [facility] Comment on above: Order Comment: Dora finch Type: BLOOD SPECIMEN Ordering Facility: [facility] Address: [address] [place] [address] Result Comment: Resu lts may be falsely depressed after the administration of Sulfasalazine and/or Sulfapyridine. Performed By: #### 5 7021-8 #### [facility] CLIA [id number] [address] [place], [place] [id number] [place] Anion gap [Moles/Vol] 9 mmol/L Normal 5-16 [facility] Comment on above: Order Comment: Speci stef Type: BLOOD SPECIMEN Ordering Facility: [facility] Address: [address] [place] [address] Performed By: #### 5 7021-8 #### [facility] CLIA [id number] [address] [place] [address] [place] AST [Catalytic activity/Vol] 24 U/L Normal 8-34 [facility] Comment on above: Order Comment: Florii stef Type: BLOOD SPECIMEN Ordering Facility: [facility] Address: [address] [place] [address] Result Comment: Resu lts may be falsely depressed after the administration of Sulfasalazine and/or Sulfapyridine. Performed By: #### 5 7021-8 #### [facility] CLIA [id number] [address] [place] [address] [place] Bilirubin [Mass/Vol] 1.2 mg/dL High 0.2-1.0 [facility] Comment on above: Order Comment: Florii stef Type: BLOOD SPECIMEN Ordering Facility: [facility] Address: [address] [place] [address] Performed By: #### 5 7021-8 #### [facility] CLIA [id number] [address] [place] [address] [place] Calcium [Mass/Vol] 9.5 mg/dL Normal 8.5-10.5 [facility] Comment on above: Order Comment: Florii stef Type: BLOOD SPECIMEN Ordering Facility: [facility] Address: [address] [place] [address] Performed By: #### 5 7021-8 #### [facility] CLIA [id number] [address] [place] [address] [place] Chloride [Moles/Vol] 94 mmol/L Low 98-107 [facility] Comment on above: Order Comment: Dora finch Type: BLOOD SPECIMEN Ordering Facility: [facility] Address: [address] [place] [address] Performed By: #### 5 7021-8 #### [facility] CLIA [id number] [address] [place] [address] [place] CO2 [Moles/Vol] 30 mmol/L Normal 21-32 [facility] Comment on above: Order Comment: Florii men Type: BLOOD SPECIMEN Ordering Facility: [facility] Address: [address] [place] [address] Performed By: #### 5 7021-8 #### [facility] CLIA [id number] [address] [place] [address] [place] Creatinine [Mass/Vol] 0.92 mg/dL Normal 0.51-0.95 [facility] Comment on above: Order Comment: Dora finch Type: BLOOD SPECIMEN Ordering Facility: [facility] Address: [address] [place] [address] Result Comment: Marissa ents receiving either N-Acetylcysteine (NAC) or Metamizole prior to venipuncture, may have falsely depressed results. Performed By: #### 5 7021-8 #### [facility] CLIA [id number] [address] [place] [address] [place] Creatinine and Glomerular filtration rate.predicted panel (S/P/Bld) 80 mL/min/1.73m??? Normal >=60 [facility] Comment on above: Order Comment: Dora finch Type: BLOOD SPECIMEN Ordering Facility: [facility] Address: [address] [place] [address] Result Comment: Zeny mated Glomerular Filtration Rate [...] GFR. Performed By: #### 5 7021-8 #### [facility] CLIA [id number] [address] [place], [place] [address] [place] Glucose [Mass/Vol] 100 mg/dL Normal 70-100 [facility] Comment on above: Order Comment: Dora finch Type: BLOOD SPECIMEN Ordering Facility: [facility] Address: [address] [place] [address] Result Comment: The [place] Diabetes Association (ADA) provides guidance for cutoff [...] Standards of Medical Care in Diabetes 2016, [place] Association. Diabetes Care. 2016.39(Suppl 1). Results may be falsely elevated after the administration of Sulfapyridine. Results may be falsely depressed after the administration of Sulfasalazine. Performed By: #### 5 7021-8 #### [facility] CLIA [id number] [address] [place] [address] [place] Potassium [Moles/Vol] 3.4 mmol/L Low 3.5-5.1 [facility] Comment on above: Order Comment: Dora finch Type: BLOOD SPECIMEN Ordering Facility: [facility] Address: [address] [place] [address] Performed By: #### 5 7021-8 #### [facility] CLIA [id number] [address] [place], [place] [address] [place] Protein [Mass/Vol] 7.3 g/dL Normal 6.0-8.5 [facility] Comment on above: Order Comment: Dora finch Type: BLOOD SPECIMEN Ordering Facility: [facility] Address: [address] [place] [address] Performed By: #### 5 7021-8 #### [facility] CLIA [id number] [address] [place] [address] [place] Sodium [Moles/Vol] 133 mmol/L Low 136-145 [facility] Comment on above: Order Comment: Speci men Type: BLOOD SPECIMEN Ordering Facility: [facility] Address: [address] [place] [address] Performed By: #### 5 7021-8 #### [facility] CLIA [id number] [address] [place] [address] [facility] Urea nitrogen [Mass/Vol] 8 mg/dL Normal 7-26 [facility] Comment on above: Order Comment: Speci men Type: BLOOD SPECIMEN Ordering Facility: [facility] Address: [address] [place] [address] Performed By: #### 5 7021-8 #### [facility] CLIA [id number] [address] [place] [address] [place] Magnesium SerPl-mCncon 10-26 Magnesium [Mass/Vol] 1.5 mg/dL Low 1.6-2.6 [facility] Comment on above: Order Comment: Speci men Type: BLOOD SPECIMEN Ordering Facility: [facility] Address: [address] [place] [address] Performed By: #### 2 4321-2 #### [facility] CLIA [id number] [address] [place] [address] [place] ALLIED HEALTHon 10-25-2024 ALLIED HEALTH HNO ID: [id number] Author: STEFANY CALVERT RN Service: Wound/Ostomy Author [...] Type: Colostomy Size/Diameter: 1 1/2 x 1 1/4" Ocal Location: LLQ Protrusion: Flush Mucosal condition and color: Red Moist Mucocutaneous junction: Intact Peristomal Skin: Denuded Red Painful Location of Skin Impairment: 9 O'clock Character of output: Yellow Liquid With Small Particles Noted Emptying frequency per day: per floor nursing Recommended Supplies: Coloplast 2pc High Output #06249 Pouch attached to drainage bag Coloplast #99094 Convex Wafer Cut To 1 1/2 x 1 1/4" Oval Lejunior #8815 Small Barrier Ring Lejunior Barrier Extenders # [phone] Please Advise Wound Care [phone] If You Have Difficulty Getting Supplies From Cart Room. If additional ostomy supplies are needed, please call [facility] [employer] ([phone]) for above mentioned supplies. If supplies are unavailable in [facility], please secure chat "[facility] W[facility] Care Nurses" or call extension [phone] to request more supplies. [facility] ALLIED HEALTH HNO ID: [id number] Author: STEFANY CALVERT RN Service: Wound/Ostomy Author [...] Supplies Are Available Through Cart/Supply Room In [facility]. Recommended Supplies: Coloplast 2pc High Output #50040 Pouch attached to drainage bag Coloplast #02455 Flat Wafer Lejunior #8815 Small Barrier Ring [place] Barrier Extenders # [phone] Please Advise Wound Care [phone] If You Have Difficulty Getting Supplies From Cart Room. Normal [facility] CBC panel Auto (Bld)on 10-25 Erythrocyte distribution width (RBC) [Ratio] 14.8 % Normal 11.5-15.0 [facility] Comment on above: Order Comment: Dora finch Type: BLOOD SPECIMEN Ordering Facility: [facility] Address: [address] [place] [address] Performed By: #### 5 7021-8 #### [facility] CLIA [id number] [address] [place] [address] [place] Hematocrit (Bld) [Volume fraction] 33.3 % Low 36.0-46.0 [facility] Comment on above: Order Comment: Dora finch Type: BLOOD SPECIMEN Ordering Facility: [facility] Address: [address] [place] [address] Performed By: #### 5 7021-8 #### [facility] CLIA [id number] [address] [place] [address] [place] Hemoglobin (Bld) [Mass/Vol] 10.3 g/dL Low 11.5-15.5 [facility] Comment on above: Order Comment: Dora finch Type: BLOOD SPECIMEN Ordering Facility: [facility] Address: [address] [place] [address] Performed By: #### 5 7021-8 #### [facility] CLIA [id number] [address] [place] [address] [place] MCH (RBC) [Entitic mass] 24.0 pg Low 26.0-34.0 [facility] Comment on above: Order Comment: Speci men Type: BLOOD SPECIMEN Ordering Facility: [facility] Address: [address] [place] [address] Performed By: #### 5 7021-8 #### [facility] CLIA [id number] [address] [place] [address] [place] MCHC (RBC) [Mass/Vol] 30.9 g/dL Normal 30.5-36.0 [facility] Comment on above: Order Comment: Speci men Type: BLOOD SPECIMEN Ordering Facility: [facility] Address: [address] [place] [address] Performed By: #### 5 7021-8 #### [facility] CLIA [id number] [address] [place] [place] [address] [place] MCV (RBC) [Entitic vol] 77.6 fL Low 80.0-100.0 [facility] Comment on above: Order Comment: Speci men Type: BLOOD SPECIMEN Ordering Facility: [facility] Address: [address] [place] [address] Performed By: #### 5 7021-8 #### [facility] CLIA [id number] [address] [place] [address] [place] Nucleated RBC (Bld) [#/Vol] 10*3/uL Normal <0.01 [facility] Comment on above: Order Comment: Speci men Type: BLOOD SPECIMEN Ordering Facility: [facility] Address: [address] [place] [address] Performed By: #### 5 7021-8 #### [facility] CLIA [id number] [address] [place] [address] [place] Platelet mean volume (Bld) [Entitic vol] 9.3 fL Normal 9.0-12.7 [facility] Comment on above: Order Comment: Speci men Type: BLOOD SPECIMEN Ordering Facility: [facility] Address: [address] [id number] Performed By: #### 5 7021-8 #### [facility] CLIA [id number] [address] [place], [place] [address] [facility] [place] Platelets (Bld) [#/Vol] 364 10*3/uL Normal 150-400 [facility] Comment on above: Order Comment: Speci men Type: BLOOD SPECIMEN Ordering Facility: [facility] Address: [address] [place] [address] Performed By: #### 5 7021-8 #### [facility] CLIA [id number] [address] [place], [place] [address] [facility] [place] RBC (Bld) [#/Vol] 4.29 10*6/uL Normal 3.90-5.20 [facility] Comment on above: Order Comment: Speci men Type: BLOOD SPECIMEN Ordering Facility: [facility] Address: [address] [place], [place] [address] Performed By: #### 5 7021-8 #### [facility] CLIA [id number] [address] [place] [place] [address] [place] WBC (Bld) [#/Vol] 6.18 10*3/uL Normal 3.70-11.00 [facility] Comment on above: Order Comment: Speci men Type: BLOOD SPECIMEN Ordering Facility: [facility] Address: [address] [place], [place] [address] Performed By: #### 5 7021-8 #### [facility] CLIA [id number] [address] [place], [place] [address] [facility] [place] Comprehensive metabolic 2000 panelon 10-25-2024 Albumin [Mass/Vol] 3.0 g/dL Low 3.2-5.0 [facility] Comment on above: Order Comment: Speci men Type: BLOOD SPECIMEN Ordering Facility: [facility] Address: [address] [place] [address] Performed By: #### 5 7021-8 #### [facility] CLIA [id number] [address] [place] [address] [place] ALP [Catalytic activity/Vol] 137 U/L High 45-117 [facility] Comment on above: Order Comment: Florii stef Type: BLOOD SPECIMEN Ordering Facility: [facility] Address: [address] [place] [address] Performed By: #### 5 7021-8 #### [facility] CLIA [id number] [address] [place] [address] [place] ALT [Catalytic activity/Vol] 14 U/L Normal 13-61 [facility] Comment on above: Order Comment: Speci men Type: BLOOD SPECIMEN Ordering Facility: [facility] Address: [address] [place] [address] Result Comment: Resu lts may be falsely depressed after the administration of Sulfasalazine and/or Sulfapyridine. Performed By: #### 5 7021-8 #### [facility] CLIA [id number] [address] [place] [address] [place] Anion gap [Moles/Vol] 9 mmol/L Normal 5-16 [facility] Comment on above: Order Comment: Florii stef Type: BLOOD SPECIMEN Ordering Facility: [facility] Address: [address] [place] [address] Performed By: #### 5 7021-8 #### [facility] CLIA [id number] [address] [place] [address] [place] AST [Catalytic activity/Vol] 16 U/L Normal 8-34 [facility] Comment on above: Order Comment: Speci men Type: BLOOD SPECIMEN Ordering Facility: [facility] Address: [address] [place] [address] Result Comment: Resu lts may be falsely depressed after the administration of Sulfasalazine and/or Sulfapyridine. Performed By: #### 5 7021-8 #### [facility] CLIA [id number] [address] [place] [address] [place] Bilirubin [Mass/Vol] 1.3 mg/dL High 0.2-1.0 [facility] Comment on above: Order Comment: Speci men Type: BLOOD SPECIMEN Ordering Facility: [facility] Address: [address] [place] [address] Performed By: #### 5 7021-8 #### [facility] CLIA [id number] [address] [place] [address] [place] Calcium [Mass/Vol] 9.6 mg/dL Normal 8.5-10.5 [facility] Comment on above: Order Comment: Speci men Type: BLOOD SPECIMEN Ordering Facility: [facility] Address: [address] [place] [address] Performed By: #### 5 7021-8 #### [facility] CLIA [id number] [address] [place] [address] [place] Chloride [Moles/Vol] 93 mmol/L Low 98-107 [facility] Comment on above: Order Comment: Speci men Type: BLOOD SPECIMEN Ordering Facility: [facility] Address: [address] [place] [address] Performed By: #### 5 7021-8 #### [facility] CLIA [id number] [address] [place] [address] [place] CO2 [Moles/Vol] 33 mmol/L High 21-32 [facility] Comment on above: Order Comment: Speci men Type: BLOOD SPECIMEN Ordering Facility: [facility] Address: [address] [place] [address] Performed By: #### 5 7021-8 #### [facility] CLIA [id number] [address] [place] [address] [place] Creatinine [Mass/Vol] 1.00 mg/dL High 0.51-0.95 [facility] Comment on above: Order Comment: Speci men Type: BLOOD SPECIMEN Ordering Facility: [facility] Address: [address] [place] [address] Result Comment: Marissa ents receiving either N-Acetylcysteine (NAC) or Metamizole prior to venipuncture, may have falsely depressed results. Performed By: #### 5 7021-8 #### [facility] CLIA [id number] [address] [place] [address] [place] Creatinine and Glomerular filtration rate.predicted panel (S/P/Bld) 73 mL/min/1.73m??? Normal >=60 [facility] Comment on above: Order Comment: Dora finch Type: BLOOD SPECIMEN Ordering Facility: [facility] Address: [address] [place] [address] Result Comment: Zeny mated Glomerular Filtration Rate [...] GFR. Performed By: #### 5 7021-8 #### [facility] CLIA [id number] [address] [place] [address] [place] Glucose [Mass/Vol] 89 mg/dL Normal 70-100 [facility] Comment on above: Order Comment: Dora finch Type: BLOOD SPECIMEN Ordering Facility: [facility] Address: [address] [place] [address] Result Comment: The [place] Diabetes Association (ADA) provides guidance for cutoff [...] Standards of Medical Care in Diabetes 2016, [place] [employer]. Diabetes Care. 2016.39(Suppl 1). Results may be falsely elevated after the administration of Sulfapyridine. Results may be falsely depressed after the administration of Sulfasalazine. Performed By: #### 5 7021-8 #### [facility] CLIA [id number] [address] [place] [address] [place] Potassium [Moles/Vol] 3.4 mmol/L Low 3.5-5.1 [facility] Comment on above: Order Comment: Speci men Type: BLOOD SPECIMEN Ordering Facility: [facility] Address: [address] [place] [address] Performed By: #### 5 7021-8 #### [facility] CLIA [id number] [address] [place] [address] [place] Protein [Mass/Vol] 7.7 g/dL Normal 6.0-8.5 [facility] Comment on above: Order Comment: Speci men Type: BLOOD SPECIMEN Ordering Facility: [facility] Address: [address] [place] [address] Performed By: #### 5 7021-8 #### [facility] CLIA [id number] [address] [place] [address] [place] Sodium [Moles/Vol] 135 mmol/L Low 136-145 [facility] Comment on above: Order Comment: Speci men Type: BLOOD SPECIMEN Ordering Facility: [facility] Address: [address] [place] [address] Performed By: #### 5 7021-8 #### [facility] CLIA [id number] [address] [place] [address] [place] Urea nitrogen [Mass/Vol] 11 mg/dL Normal 7-26 [facility] Comment on above: Order Comment: Speci men Type: BLOOD SPECIMEN Ordering Facility: [facility] Address: [address] [place] [address] Performed By: #### 5 7021-8 #### [facility] CLIA [id number] [address] [place] [address] [place] Magnesium SerPl-mCncon 10-25 Magnesium [Mass/Vol] 1.7 mg/dL Normal 1.6-2.6 [facility] Comment on above: Order Comment: Speci men Type: BLOOD SPECIMEN Ordering Facility: [facility] Address: [address] [id number] Performed By: #### 5 7021-8 #### [facility] CLIA [id number] [address] [id number] [place] CBC panel Auto (Bld)on 10-24 Erythrocyte distribution width (RBC) [Ratio] 14.8 % Normal 11.5-15.0 [facility] Comment on above: Order Comment: Speci men Type: BLOOD SPECIMENOrdering Facility: [facility] Address: [address] [place] [address] Performed By: #### 5 8410-2 ####[facility] [id number] [address] [place] Hematocrit (Bld) [Volume fraction] 32.6 % Low 36.0-46.0 [facility] Comment on above: Order Comment: Speci men Type: BLOOD SPECIMENOrdering Facility: [facility] [facility] Address: [address] [place] [address] Performed By: #### 5 8410-2 ####[facility] LABORATORYCLIA [id number] [address] [place] Hemoglobin (Bld) [Mass/Vol] 10.3 g/dL Low 11.5-15.5 [facility] Comment on above: Order Comment: Speci men Type: BLOOD SPECIMENOrdering Facility: [facility] Address: [address] [place] [address] Performed By: #### 5 8410-2 ####[facility] LABORATORYCLIA [id number] [address] [place] MCH (RBC) [Entitic mass] 24.1 pg Low 26.0-34.0 [facility] Comment on above: Order Comment: Speci men Type: BLOOD SPECIMENOrdering Facility: [facility] Address: [address] [place] [address] Performed By: #### 5 8410-2 ####[facility]ORATORYCLIA [id number] [place] [id number] [place] MCHC (RBC) [Mass/Vol] 31.6 g/dL Normal 30.5-36.0 [facility] Comment on above: Order Comment: Speci men Type: BLOOD SPECIMENOrdering Facility: [facility] Address: [address] [place] [address] Performed By: #### 5 8410-2 ####[facility]ORATORYCLIA [id number] [place] [address] [place] MCV (RBC) [Entitic vol] 76.2 fL Low 80.0-100.0 [facility] Comment on above: Order Comment: Speci men Type: BLOOD SPECIMENOrdering Facility: [facility] Address: [address] [place] [address] Performed By: #### 5 8410-2 ####[facility]ATORYCLIA [id number] [address] [place] Nucleated RBC (Bld) [#/Vol] 10*3/uL Normal <0.01 [facility] Comment on above: Order Comment: Speci men Type: BLOOD SPECIMENOrdering Facility: [facility] Address: [address] [place] [address] Performed By: #### 5 8410-2 ####[facility]ORATORYCLIA [id number] [place] [address] [place] Platelet mean volume (Bld) [Entitic vol] 8.7 fL Low 9.0-12.7 [facility] Comment on above: Order Comment: Speci men Type: BLOOD SPECIMENOrdering Facility: [facility] Address: [address] [place] [address] Performed By: #### 5 8410-2 ####[facility]ORATORYCLIA [id number] [place] [address] [place] Platelets (Bld) [#/Vol] 408 10*3/uL High 150-400 [facility] Comment on above: Order Comment: Speci men Type: BLOOD SPECIMENOrdering Facility: [facility] Address: [address] [place] [address] Performed By: #### 5 8410-2 ####[facility]ORATORYCLIA [id number] [place] [id number] [facility] RBC (Bld) [#/Vol] 4.28 10*6/uL Normal 3.90-5.20 [facility] Comment on above: Order Comment: Speci men Type: BLOOD SPECIMENOrdering Facility: [facility] Address: [address] [place] [address] Performed By: #### 5 8410-2 ####[facility]ATORYCLIA [id number] [place] [id number] [facility] WBC (Bld) [#/Vol] 6.06 10*3/uL Normal 3.70-11.00 [facility] Comment on above: Order Comment: Speci men Type: BLOOD SPECIMENOrdering Facility: [facility] Address: [address] [place] [address] Performed By: #### 5 8410-2 ####[facility]ATORYCLIA [id number] [place] [id number] [facility] Comprehensive metabolic 2000 panelon 10-24-2024 Albumin [Mass/Vol] 3.1 g/dL Low 3.2-5.0 [facility] Comment on above: Order Comment: Speci men Type: BLOOD SPECIMENOrdering Facility: [facility] Address: [address] [place] [address] Performed By: #### 1 9123-9, 11656-1 ####[facility]ORATORYCLIA [id number] [place] [id number] [place] ALP [Catalytic activity/Vol] 131 U/L High 45-117 [facility] Comment on above: Order Comment: Speci men Type: BLOOD SPECIMENOrdering Facility: [facility] Address: [address] [place] [address] Performed By: #### 1 9123-9, 29229-9 ####[facility]ATORYCLIA [id number] [place] [id number] [place] ALT [Catalytic activity/Vol] 15 U/L Normal 13-61 [facility] Comment on above: Order Comment: Speci men Type: BLOOD SPECIMENOrdering Facility: [facility] Address: [address] [place] [address] Result Comment: Resu lts may be falsely depressed after the administration of Sulfasalazine and/or Sulfapyridine. Performed By: #### 1 9123-9, 07507-0 ####[facility]ATORYCLIA [id number] [place] [address] [place] Anion gap [Moles/Vol] 10 mmol/L Normal 5-16 [facility] Comment on above: Order Comment: Speci men Type: BLOOD SPECIMENOrdering Facility: [facility] Address: [address] [place] [address] Performed By: #### 1 9123-9, 87340-6 ####[facility]ATORYCLIA [id number] [place] [address] [place] AST [Catalytic activity/Vol] 12 U/L Normal 8-34 [facility] Comment on above: Order Comment: Speci men Type: BLOOD SPECIMENOrdering Facility: [facility] Address: [address] [place] [address] Result Comment: Resu lts may be falsely depressed after the administration of Sulfasalazine and/or Sulfapyridine. Performed By: #### 1 9123-9, 41816-8 ####[facility]ATORYCLIA [id number] [place] [address] [place] Bilirubin [Mass/Vol] 1.2 mg/dL High 0.2-1.0 [facility] Comment on above: Order Comment: Speci men Type: BLOOD SPECIMENOrdering Facility: [facility] Address: [address] [place] [address] Performed By: #### 1 9123-9, 39526-6 ####[facility]ORATORYCLIA [id number] [place] [address] [place] Calcium [Mass/Vol] 9.6 mg/dL Normal 8.5-10.5 [facility] Comment on above: Order Comment: Speci men Type: BLOOD SPECIMENOrdering Facility: [facility] Address: [address] [place] [address] Performed By: #### 1 9123-9, 04404-3 ####[facility]ORATORYCLIA [id number] [place] [id number] [place] Chloride [Moles/Vol] 92 mmol/L Low 98-107 [facility] Comment on above: Order Comment: Speci men Type: BLOOD SPECIMENOrdering Facility: [facility] Address: [address] [place] [address] Performed By: #### 1 9123-9, 14325-8 ####[facility]ATORYCLIA [id number] [place] [address] [place] CO2 [Moles/Vol] 31 mmol/L Normal 21-32 [facility] Comment on above: Order Comment: Speci men Type: BLOOD SPECIMENOrdering Facility: [facility] Address: [address] [place] [address] Performed By: #### 1 9123-9, 89377-9 ####[facility]ATORYCLIA [id number] [place] [address] [place] Creatinine [Mass/Vol] 1.04 mg/dL High 0.51-0.95 [facility] Comment on above: Order Comment: Speci men Type: BLOOD SPECIMENOrdering Facility: [facility] Address: [address] [place] [address] Result Comment: Marissa ents receiving either N-Acetylcysteine (NAC) or Metamizole prior to venipuncture, may have falsely depressed results. Performed By: #### 1 9123-9, 46215-8 ####[facility]ATORYCLIA [id number] [place] [address] [place] Creatinine and Glomerular filtration rate.predicted panel (S/P/Bld) 69 mL/min/1.73m??? Normal >=60 [facility] Comment on above: Order Comment: Speci men Type: BLOOD SPECIMENOrdering Facility: [facility] Address: [address] [place] [address] Result Comment: Zeny mated Glomerular Filtration Rate [...] actual GFR. Performed By: #### 1 9123-9, 73879-2 ####[facility]ATORYCLIA [id number] [place] [address] [place] Glucose [Mass/Vol] 101 mg/dL High 70-100 [facility] Comment on above: Order Comment: Dora finch Type: BLOOD SPECIMENOrdering Facility: [facility] Address: [address] [place] [address] Result Comment: The [place] [employer] (ADA) provides guidance for cutoff [...] Standards of Medical Care in Diabetes 2016, [place]. Diabetes Care. 2016.39(Suppl 1). Results may be falsely elevated after the administration of Sulfapyridine. Results may be falsely depressed after the administration of Sulfasalazine. Performed By: #### 1 9123-9, 95479-7 ####[facility]ATORYCLIA [id number] [place] [address] [place] Potassium [Moles/Vol] 3.4 mmol/L Low 3.5-5.1 [facility] Comment on above: Order Comment: Dora finch Type: BLOOD SPECIMENOrdering Facility: [facility] Address: [address] [place] [id number] Performed By: #### 1 9123-9, 82756-7 ####[facility]ATORYCLIA [id number] [place] [id number] [place] Protein [Mass/Vol] 7.5 g/dL Normal 6.0-8.5 [facility] Comment on above: Order Comment: Speci men Type: BLOOD SPECIMENOrdering Facility: [facility] Address: [address] [place] [address] Performed By: #### 1 9123-9, 69938-6 ####[facility]ATORYCLIA [id number] [place] [address] [place] Sodium [Moles/Vol] 133 mmol/L Low 136-145 [facility] Comment on above: Order Comment: Speci men Type: BLOOD SPECIMENOrdering Facility: [facility] Address: [address] [place] [address] Performed By: #### 1 9123-9, 95237-7 ####[facility]ORYCLIA [id number] [place] [address] [place] Urea nitrogen [Mass/Vol] 10 mg/dL Normal 7-26 [facility] Comment on above: Order Comment: Speci men Type: BLOOD SPECIMENOrdering Facility: [facility] Address: [facility] [place] [address] Performed By: #### 1 9123-9, 68244-4 ####[facility]ATORYCLIA [id number] [place] [address] [place] Magnesium SerPl-mCncon 10-24 Magnesium [Mass/Vol] 1.8 mg/dL Normal 1.6-2.6 [facility] Comment on above: Order Comment: Speci men Type: BLOOD SPECIMENOrdering Facility: [facility] Address: [address] [place] [address] Performed By: #### 1 9123-9, 80572-1 ####[facility]ATORYCLIA [id number] [place] [id number] [place] NUTRITIONon 10-24-2024 NUTRITION HNO ID: [id number] Author: LELIA RAMEY RD Service: ? Author Type: Registered Dietitian [...] needs: 1849 - 2049 Calorie Calculation Method: Argyle-St. Jeor (with activity factor) Estimated protein needs (grams): 120 - 130 Grams protein determined by: (>/= 2.0 g/kg IBW) Diet Orders (From admission, onward) Start Ordered 10/20/24 1530 DIET SUPPLEMENTS START NOW Question Answer Comment Supplement 1 POWERADE ORAL REHYDRATION SOLUTION MIXED HODGE Supplement 1 Frequency BREAKFAST Supplement 1 Frequency LUNCH Supplement 1 Frequency DINNER 10/20/24 1519 10/19/24 2315 DIET REGULAR START NOW Question: Tray Precautions Answer: TRAY PRECAUTIONS NOT REQUIRED 10/19/249 Anthropometrics: Height: 170.2 cm (5' 7") Weight: 86.4 kg (190 lb 7.6 oz) Body mass index is 29.83 kg/m?. Lines, Drains, and Airways Drain Duration Small Bowel Ostomy 08/22/24 LLQ 62 days MNT Billing: $ Routine Care : 1 unit Time Spent (mins): 4 SIGNATURE: Lelia Ramey RD PATIENT NAME: Daly Evans DATE: October 24, 2024 TIME: 1:56 PM Normal [facility] CBC panel Auto (Bld)on 10-23 Erythrocyte distribution width (RBC) [Ratio] 14.8 % Normal 11.5-15.0 [facility] Comment on above: Order Comment: Speci men Type: BLOOD SPECIMENOrdering Facility: [facility] Address: [address] [place] [address] Performed By: #### 5 8410-2 ####[facility]ORATORYCLIA [id number] [address] [place] Hematocrit (Bld) [Volume fraction] 30.5 % Low 36.0-46.0 [facility] Comment on above: Order Comment: Speci men Type: BLOOD SPECIMENOrdering Facility: [facility] Address: [address] [place] [address] Performed By: #### 5 8410-2 ####[facility]ATORYCLIA [id number] [place] [address] [place] Hemoglobin (Bld) [Mass/Vol] 9.4 g/dL Low 11.5-15.5 [facility] Comment on above: Order Comment: Speci men Type: BLOOD SPECIMENOrdering Facility: [facility] Address: [address] [place] [address] Performed By: #### 5 8410-2 ####[facility]ATORYCLIA [id number] [place] [address] [place] MCH (RBC) [Entitic mass] 24.0 pg Low 26.0-34.0 [facility] Comment on above: Order Comment: Speci men Type: BLOOD SPECIMENOrdering Facility: [facility] Address: [address] [place] [address] Performed By: #### 5 8410-2 ####[facility]ORATORYCLIA [id number] [place] [id number] [facility] MCHC (RBC) [Mass/Vol] 30.8 g/dL Normal 30.5-36.0 [facility] Comment on above: Order Comment: Speci men Type: BLOOD SPECIMENOrdering Facility: [facility] Address: [address] [place] [address] Performed By: #### 5 8410-2 ####[facility]ORATORYCLIA [id number] [address] MCV (RBC) [Entitic vol] 77.8 fL Low 80.0-100.0 [facility] Comment on above: Order Comment: Speci men Type: BLOOD SPECIMENOrdering Facility: [facility] Address: [address] [place] [address] Performed By: #### 5 8410-2 ####[facility]ATORYCLIA [id number] [address] Nucleated RBC (Bld) [#/Vol] 10*3/uL Normal <0.01 [facility] Comment on above: Order Comment: Speci men Type: BLOOD SPECIMENOrdering Facility: [facility] Address: [address] [place] [address] Performed By: #### 5 8410-2 ####[facility]ATORYCLIA [id number] [address] Platelet mean volume (Bld) [Entitic vol] 8.6 fL Low 9.0-12.7 [facility] Comment on above: Order Comment: Speci men Type: BLOOD SPECIMENOrdering Facility: [facility] Address: [address] [place] [address] Performed By: #### 5 8410-2 ####[facility]ORATORYCLIA [id number] [place] [address] [place] Platelets (Bld) [#/Vol] 413 10*3/uL High 150-400 [facility] Comment on above: Order Comment: Speci men Type: BLOOD SPECIMENOrdering Facility: [facility] Address: [address] [place] [address] Performed By: #### 5 8410-2 ####[facility]ORATORYCLIA [id number] [place] [id number] [place] RBC (Bld) [#/Vol] 3.92 10*6/uL Normal 3.90-5.20 [facility] Comment on above: Order Comment: Speci men Type: BLOOD SPECIMENOrdering Facility: [facility] Address: [address] [place] [address] Performed By: #### 5 8410-2 ####[facility]ATORYCLIA [id number] [place] [id number] [place] [facility] WBC (Bld) [#/Vol] 5.26 10*3/uL Normal 3.70-11.00 [facility] Comment on above: Order Comment: Speci men Type: BLOOD SPECIMENOrdering Facility: [facility] Address: [address] [place] [address] Performed By: #### 5 8410-2 ####[facility]ORATORYCLIA [id number] [place] [id number] [facility] [place] CONSULTon 10-23-2024 CONSULT HNO ID: [id number] Author: YOHANA MCCARTHY III, DPM Service: Podiatry Author Type: Physician Type: Consults Filed: 10/23/2024 06:37 Note Text: PODIATRIC INITIAL CONSULT Patient Name: Daly Estrella Lover Account #: Data Unavailable Admission Date: 10/19/2024 Date of Evaluation: 10/23/2024 Time of Evaluation: 6:30 AM HISTORY OF PRESENT ILLNESS: This is a pleasant 39 year old female with past medical history significant for bipolar disorder generalized anxiety and panic disorder tobacco abuse and polysubstance abuse who originally presented to [facility] with severe abdominal pain and found [...] feet. No x-rays have been done today. Computational Theory Scientist consult regarding management of bilateral foot gangrene. Originally presented to hospital with persistent stools. She had recent vascular follow-up at the end of August. PAST MEDICAL HISTORY Diagnosis Date Attempted suicide (HCC) polysubstance Bipolar depression (HCC) [facility]te Gestational diabetes mellitus in ([facility]) Impaired fasting blood sugar 06/2015 a1c 5.7% [...] Never Tobacco comments: Pateint only uses the "Vape" She doesnt smoke nicotine Patient quit smoking [...] Urine Negative 08/30/2024 Nitrites Negative 08/30/2024 Specific [place], Ur 1.016 08/30/2024 Protein, Urine 1+ 08/30/2024 Leukest Negative 08/30/2024 WBC, Urine 0-5 /HPF 08/30/2024 Bacteria Negative 08/30/2024 SED RATE/CRP: Sed Rate, Westergren 2 02/05/2022 CRP 10.4 09/03/2024 CRP 20.2 08/31/2024 CRP 18.1 (more content not included)... [facility] CONSULT PROGon 10-23-2024 CONSULT PROG HNO ID: [id number] Author: ALOK GIVENS MD Service: Gastroenterology Author Type: Nurse Practitioner Type: Consult Progress Note Filed: 10/23/2024 14:03 Note Text: Attestation signed by Alok Givens MD at 10/23/2024 2:03 PM ATTENDING PHYSICIAN [...] if needed Rest as outlined below by GERIATRIC SOCIAL WORK PROFESSOR Other additions or changes: None Signature: Alok Givens MD Date: 10/23/2024 GASTROENTEROLOGY PROGRESS NOTES PATIENT NAME: Daly Evans SERVICE DATE: 10/23/2024 SERVICE TIME: 11:56 AM CONSULTING SERVICE: GI HPI interval summary No acute events reported overnight SUBJECTIVE Patient laying in bed, no acute distress. Denies any abdominal pain, nausea, or vomiting. States slight decrease in ostomy output. OBJECTIVE BP 96/59 Pulse 91 Temp (Src) 98.1 (Oral) Resp 17 Ht 5' 7" (1.70m) Wt 192 lb 7.4 oz (87.3kg) [...] (HCC) POA: Yes ASSESSMENT/PLAN-in collaboration with Dr. Givens #High output jejunostomy #SBS -BP soft, afebrile, [...] primary team -Outpatient GI follow-up, referral line [phone] -Please call with questions, nothing further to add from a GI standpoint at this time GI will sign off at this time. Please don't hesitate to call us back. Please contact on-call GI staff physician with any questions or concerns. SIGNATURE: Rakesh Davis APRN.MANUFACTURING MILLWRIGHT DATE: October 23, 2024 TIME: 11:56 AM (Some elements copied from my note, dated 10/22, which have been reviewed and updated where appropriate. All reflect current medical decision making from today, 10/23.) Normal [facility] Comprehensive metabolic 2000 panelon 10-23-2024 Albumin [Mass/Vol] 2.8 g/dL Low 3.2-5.0 [facility] Comment on above: Order Comment: Speci men Type: BLOOD SPECIMENOrdering Facility: [facility] Address: [address] [place], [place] [address] Performed By: #### 1 9123-9, 42419-7 ####[facility] LABORATORYCLIA [id number] [place] [address] [place] ALP [Catalytic activity/Vol] 118 U/L High 45-117 [facility] Comment on above: Order Comment: Speci men Type: BLOOD SPECIMENOrdering Facility: [facility] Address: [address] [place], [place] [address] Performed By: #### 1 9123-9, 55043-6 ####[facility]ORATORYCLIA [id number] [place] [address] [place] ALT [Catalytic activity/Vol] 15 U/L Normal 13-61 [facility] Comment on above: Order Comment: Speci men Type: BLOOD SPECIMENOrdering Facility: [facility] Address: [address] [place] [address] Result Comment: Resu lts may be falsely depressed after the administration of Sulfasalazine and/or Sulfapyridine. Performed By: #### 1 9123-9, 66570-8 ####[facility]ORATORYCLIA [id number] [place] [address] [place] Anion gap [Moles/Vol] 10 mmol/L Normal 5-16 [facility] Comment on above: Order Comment: Speci men Type: BLOOD SPECIMENOrdering Facility: [facility] Address: [address] [place] [address] Performed By: #### 1 9123-9, 04720-6 ####[facility]ORATORYCLIA [id number] [place] [address] [place] AST [Catalytic activity/Vol] 14 U/L Normal 8-34 [facility] Comment on above: Order Comment: Speci men Type: BLOOD SPECIMENOrdering Facility: [facility] Address: [address] [place] [address] Result Comment: Resu lts may be falsely depressed after the administration of Sulfasalazine and/or Sulfapyridine. Performed By: #### 1 9123-9, 05757-6 ####[facility]ATORYCLIA [id number] [place] [address] [place] Bilirubin [Mass/Vol] 0.9 mg/dL Normal 0.2-1.0 [facility] Comment on above: Order Comment: Speci men Type: BLOOD SPECIMENOrdering Facility: [facility] Address: [address] [place] [address] Performed By: #### 1 9123-9, 15196-9 ####[facility]ORATORYCLIA [id number] [place] [id number] [place] Calcium [Mass/Vol] 9.1 mg/dL Normal 8.5-10.5 [facility] Comment on above: Order Comment: Speci men Type: BLOOD SPECIMENOrdering Facility: [facility] Address: [address] [place] [address] Performed By: #### 1 9123-9, 72651-8 ####[facility]ORATORYCLIA [id number] [place] [id number] [place] Chloride [Moles/Vol] 98 mmol/L Normal 98-107 [facility] Comment on above: Order Comment: Speci men Type: BLOOD SPECIMENOrdering Facility: [facility] Address: [address] [place] [address] Performed By: #### 1 9123-9, 42039-4 ####[facility]ORATORYCLIA [id number] [place] [address] [place] CO2 [Moles/Vol] 29 mmol/L Normal 21-32 [facility] Comment on above: Order Comment: Speci men Type: BLOOD SPECIMENOrdering Facility: [facility] Address: [address] [place] [address] Performed By: #### 1 9123-9, 47086-1 ####[facility]ATORYCLIA [id number] [place] [address] [place] Creatinine [Mass/Vol] 0.90 mg/dL Normal 0.51-0.95 [facility] Comment on above: Order Comment: Speci men Type: BLOOD SPECIMENOrdering Facility: [facility] Address: [address] [place] [address] Result Comment: Marissa ents receiving either N-Acetylcysteine (NAC) or Metamizole prior to venipuncture, may have falsely depressed results. Performed By: #### 1 9123-9, 40351-7 ####[facility]ATORYCLIA [id number] [place] [address] [place] Creatinine and Glomerular filtration rate.predicted panel (S/P/Bld) 83 mL/min/1.73m??? Normal >=60 [facility] Comment on above: Order Comment: Speci men Type: BLOOD SPECIMENOrdering Facility: [facility] Address: [address] [place] [address] Result Comment: Zeny mated Glomerular Filtration Rate [...] actual GFR. Performed By: #### 1 9123-9, 55992-0 ####[facility]ATORYCLIA [id number] [place] [id number] [place] Glucose [Mass/Vol] 98 mg/dL Normal 70-100 [facility] Comment on above: Order Comment: Dora finch Type: BLOOD SPECIMENOrdering Facility: [facility] Address: [address] [place] [address] Result Comment: The [place] Diabetes Association (ADA) provides guidance for cutoff [...] Standards of Medical Care in Diabetes 2016, [place]. Diabetes Care. 2016.39(Suppl 1). Results may be falsely elevated after the administration of Sulfapyridine. Results may be falsely depressed after the administration of Sulfasalazine. Performed By: #### 1 9123-9, 43635-3 ####[facility]ORYCLIA [id number] [place] [address] [place] Potassium [Moles/Vol] 3.4 mmol/L Low 3.5-5.1 [facility] Comment on above: Order Comment: Dora finch Type: BLOOD SPECIMENOrdering Facility: [facility] Address: [address] [place] [id number] Performed By: #### 1 9123-9, 24728-6 ####[facility]ATORYCLIA [id number] [place] [address] [place] Protein [Mass/Vol] 6.9 g/dL Normal 6.0-8.5 [facility] Comment on above: Order Comment: Speci men Type: BLOOD SPECIMENOrdering Facility: [facility] Address: [address] [place] [address] Performed By: #### 1 9123-9, 26536-5 ####[facility]ATORYCLIA [id number] [place] [id number] [place] Sodium [Moles/Vol] 137 mmol/L Normal 136-145 [facility] Comment on above: Order Comment: Speci men Type: BLOOD SPECIMENOrdering Facility: [facility] Address: [address] [place] [address] Performed By: #### 1 9123-9, 21236-9 ####[facility]ORATORYCLIA [id number] [place] [address] [place] Urea nitrogen [Mass/Vol] 7 mg/dL Normal 7-26 [facility] Comment on above: Order Comment: Speci men Type: BLOOD SPECIMENOrdering Facility: [facility] Address: [address] [place] [address] Performed By: #### 1 9123-9, 00314-8 ####[facility]ATORYCLIA [id number] [place] [id number] [place] Magnesium SerPl-mCncon 10-23 Magnesium [Mass/Vol] 1.9 mg/dL Normal 1.6-2.6 [facility] Comment on above: Order Comment: Speci men Type: BLOOD SPECIMENOrdering Facility: [facility] Address: [address] [place] [address] Performed By: #### 1 9123-9, 69963-4 ####[facility]ORYCLIA [id number] [place] [id number] [place] XR FOOT 3V AP/LAT/OBL BILon 10-23-2024 XR FOOT 3V AP/LAT/OBL RONY * * *Final Report* * * DATE OF EXAM: Oct 23 2024 9:06AM RHX [id number] - XR FOOT 3V AP/LAT/OBL RONY / PROCEDURE REASON: Other * * * * Physician Interpretation * * * * XR FOOT 3V AP/LAT/OBL RONY Ordering Physician: YOHANA MCCARTHY Clinical Statement: Gangrene FINDINGS: Right foot: No fracture or dislocation. Normal alignment. Soft tissue swelling. No soft tissue gas or evidence of osteomyelitis. Posterior calcaneal enthesopathy. Left foot: No fracture or dislocation. Normal alignment. Soft tissue swelling distally. No soft tissue gas or evidence of osteomyelitis. Posterior calcaneal enthesopathy. IMPRESSION: No imaging evidence of osteomyelitis. Mild distal soft tissue swelling. Actuarial Technician: PSCB Transcribe Date/Time: Oct 23 2024 4:00P Dictated by : HOMA EDMONDSON MD This examination was interpreted and the report reviewed and electronically signed by: HOMA EDMONDSON MD on Oct 23 2024 4:03PM EST [id number] [facility] ALLIED HEALTHon 10-22-2024 ALLIED HEALTH HNO ID: [id number] Author: STEFANY CALVERT RN Service: Wound/Ostomy Author Type: Registered Nurse Type: Allied Health Filed: 10/22/2024 10:41 Note Text: Summary: Ostomy Nurse Visit Ostomy Nurse Consult Reason for Consult: Leaking High Output Ostomy. Pt has established end-loop jejunostomy Ostomy Nurse Removed Leaking Pouch Cleansed With Plain Water And Dried. Stoma Measured 38mm - Cut Wafer To Within 1/8" Of Stoma Small Barrier Ring Applied Stoma Bag Applied And Attached To Drainage Bag Barrier Tours Captain Strips Applied To Edges Patient Educated On Need To Watch Drainage Tubing To Ensure Its Draining And Pouch Doesn't Get Too Full And Starts Leaking. Assessment Stoma Type: End-loop jejunostomy Size/Diameter: 38mm Location: LLQ Protrusion: Flush, Retracted, Etc. Mucosal condition and color: [place] Red Moist Mucocutaneous junction: Intact Character of output: Liquid Yellow Brown Emptying frequency per day: per floor nursing Current pouching system: Coloplast 2pc High Output #15852 Pouch attached to drainage bag Coloplast #42216 Flat Wafer Lejunior #8815 Small Barrier Ring Wear Time Goal: 3-4 days Coloplast 2pc Colostomy Pouch # 40702 Left In Room When Stool Thickens Too Much To Use High Output Bag. If additional ostomy supplies are needed, please call [employer] ([phone]) for above mentioned supplies. If supplies are unavailable in [employer], please secure chat "[facility]" or call extension [phone] to request more supplies. Normal [facility] CBC panel Auto (Bld)on 10-22 Erythrocyte distribution width (RBC) [Ratio] 14.6 % Normal 11.5-15.0 [facility] Comment on above: Order Comment: Speci men Type: BLOOD SPECIMEN [facility]ing [facility]: [facility] Address: [address] [place] [address] Performed By: #### 4 091-5 #### [facility] CLIA [id number] [address] [place] [address] [place] Hematocrit (Bld) [Volume fraction] 28.0 % Low 36.0-46.0 [facility] Comment on above: Order Comment: Speci men Type: BLOOD SPECIMEN Ordering Facility: [facility] Address: [address] [place] [address] Performed By: #### 4 091-5 #### [facility] CLIA [id number] [address] [place] [address] [place] Hemoglobin (Bld) [Mass/Vol] 8.8 g/dL Low 11.5-15.5 [facility] Comment on above: Order Comment: Speci men Type: BLOOD SPECIMEN Ordering Facility: [facility] Address: [address] [place] [address] Performed By: #### 4 091-5 #### [facility] CLIA [id number] [address] [place] [address] [place] MCH (RBC) [Entitic mass] 24.6 pg Low 26.0-34.0 [facility] Comment on above: Order Comment: Speci men Type: BLOOD SPECIMEN Ordering Facility: [facility] Address: [address] [place] [address] Performed By: #### 4 091-5 #### [facility] CLIA [id number] [address] [place] [address] [place] MCHC (RBC) [Mass/Vol] 31.4 g/dL Normal 30.5-36.0 [facility] Comment on above: Order Comment: Speci men Type: BLOOD SPECIMEN Ordering [facility]: [facility] Address: [address] [place] [address] Performed By: #### 4 091-5 #### [facility] CLIA [id number] [address] [place] [address] [place] MCV (RBC) [Entitic vol] 78.4 fL Low 80.0-100.0 [facility] Comment on above: Order Comment: Speci men Type: BLOOD SPECIMEN Ordering [facility]: [facility] Address: [address] [place] [address] Performed By: #### 4 091-5 #### [facility] CLIA [id number] [address] [place] [address] [place] Nucleated RBC (Bld) [#/Vol] 10*3/uL Normal <0.01 [facility] Comment on above: Order Comment: Speci men Type: BLOOD SPECIMEN [facility]ing [facility]: [facility] Address: [address] [place] [address] Performed By: #### 4 091-5 #### [facility] CLIA [id number] [address] [place] [address] [place] Platelet mean volume (Bld) [Entitic vol] 8.7 fL Low 9.0-12.7 [facility] Comment on above: Order Comment: Speci men Type: BLOOD SPECIMEN Ordering [facility]: [facility] Address: [address] [place] [address] Performed By: #### 4 091-5 #### [facility] CLIA [id number] [address] [place] [address] [place] Platelets (Bld) [#/Vol] 396 10*3/uL Normal 150-400 [facility] Comment on above: Order Comment: Speci men Type: BLOOD SPECIMEN Ordering [facility]: [facility] Address: [address] [place] [address] Performed By: #### 4 091-5 #### [facility] IA [id number] [address] [place] [address] [place] RBC (Bld) [#/Vol] 3.57 10*6/uL Low 3.90-5.20 [facility] Comment on above: Order Comment: Speci men Type: BLOOD SPECIMEN Ordering Facility: [facility] Address: [address] [place] [address] Performed By: #### 4 091-5 #### [facility] CLIA [id number] [address] [place] [address] [place] WBC (Bld) [#/Vol] 5.87 10*3/uL Normal 3.70-11.00 [facility] Comment on above: Order Comment: Speci men Type: BLOOD SPECIMEN Ordering Facility: [facility] Address: [address] [place] [address] Performed By: #### 4 091-5 #### [facility] CLIA [id number] [address] [place], [place] [id number] [facility] CONSULT PROGon 10-22-2024 CONSULT PROG HNO ID: [id number] Author: TUNG JENNINGS MD Service: Gastroenterology Author [...] (Src) 98.4 (Oral) Resp 18 Ht 5' 7" (1.70m) Wt 192 lb 7.4 oz (87.3kg) [...] team -GI will follow SIGNATURE: Rakesh Davis APRN.MANUFACTURING MILLWRIGHT DATE: October 22, 2024 TIME: 12:32 PM (Some elements copied from my colleague's note, dated 10/21, which have been reviewed and updated where appropriate. All reflect current medical decision making from today, 10/22.) Normal [facility] Comprehensive metabolic 2000 panelon 10-22-2024 Albumin [Mass/Vol] 2.6 g/dL Low 3.2-5.0 [facility] Comment on above: Order Comment: Dora finch Type: BLOOD SPECIMEN [facility]: [facility] Address: [address] [place] [address] Performed By: #### 4 091-5 #### [facility] CLIA [id number] [address] [place] [address] [place] ALP [Catalytic activity/Vol] 110 U/L Normal 45-117 [facility] Comment on above: Order Comment: Dora finch Type: BLOOD SPECIMEN Ordering [facility]: [facility] Address: [address] [place] [address] Performed By: #### 4 091-5 #### [facility] CLIA [id number] [address] [place] [address] [place] ALT [Catalytic activity/Vol] 15 U/L Normal 13-61 [facility] Comment on above: Order Comment: Dora finch Type: BLOOD SPECIMEN Ordering Facility: [facility] Address: [address] [place] [address] Result Comment: Resu lts may be falsely depressed after the administration of Sulfasalazine and/or Sulfapyridine. Performed By: #### 4 091-5 #### [facility] CLIA [id number] [address] [place] [address] [place] Anion gap [Moles/Vol] 8 mmol/L Normal 5-16 [facility] Comment on above: Order Comment: Florii stef Type: BLOOD SPECIMEN Ordering Facility: [facility] Address: [address] [place] [address] Performed By: #### 4 091-5 #### [facility] CLIA [id number] [address] [place] [address] [place] AST [Catalytic activity/Vol] 14 U/L Normal 8-34 [facility] Comment on above: Order Comment: Speci men Type: BLOOD SPECIMEN Ordering Facility: [facility] Address: [address] [place] [address] Result Comment: Resu lts may be falsely depressed after the administration of Sulfasalazine and/or Sulfapyridine. Performed By: #### 4 091-5 #### [facility] CLIA [id number] [address] [place] [address] [place] Bilirubin [Mass/Vol] 0.9 mg/dL Normal 0.2-1.0 [facility] Comment on above: Order Comment: Speci men Type: BLOOD SPECIMEN Ordering [facility]: [facility] Address: [address] [place] [address] Performed By: #### 4 091-5 #### [facility] CLIA [id number] [address] [place] [address] [place] Calcium [Mass/Vol] 8.9 mg/dL Normal 8.5-10.5 [facility] Comment on above: Order Comment: Speci men Type: BLOOD SPECIMEN [facility]ing [facility]: [facility] Address: [address] [place] [address] Performed By: #### 4 091-5 #### [facility] CLIA [id number] [address] [place] [address] [place] Chloride [Moles/Vol] 98 mmol/L Normal 98-107 [facility] Comment on above: Order Comment: Speci men Type: BLOOD SPECIMEN Ordering Facility: [facility] Address: [address] [place] [address] Performed By: #### 4 091-5 #### [facility] CLIA [id number] [address] [place] [address] [place] CO2 [Moles/Vol] 30 mmol/L Normal 21-32 [facility] Comment on above: Order Comment: Speci men Type: BLOOD SPECIMEN Ordering Facility: [facility] Address: [address] [place] [address] Performed By: #### 4 091-5 #### [facility] CLIA [id number] [address] [place] [place] [address] OF [facility] Creatinine [Mass/Vol] 0.95 mg/dL Normal 0.51-0.95 [facility] Comment on above: Order Comment: Dora finch Type: BLOOD SPECIMEN Ordering Facility: [facility] Address: [address] [place] [address] Result Comment: Marissa ents receiving either N-Acetylcysteine (NAC) or Metamizole prior to venipuncture, may have falsely depressed results. Performed By: #### 4 091-5 #### [facility] CLIA [id number] [address] [place] [address] Creatinine and Glomerular filtration rate.predicted panel (S/P/Bld) 77 mL/min/1.73m??? Normal >=60 [facility] Comment on above: Order Comment: Dora finch Type: BLOOD SPECIMEN Ordering Facility: [facility] Address: [address] [place] [address] Result Comment: Zeny mated Glomerular Filtration Rate [...] GFR. Performed By: #### 4 091-5 #### [facility] CLIA [id number] [address] [place] [address] [place] Glucose [Mass/Vol] 83 mg/dL Normal 70-100 [facility] Comment on above: Order Comment: Dora finch Type: BLOOD SPECIMEN Ordering Facility: [facility] Address: [address] [place] [address] Result Comment: The [place] Diabetes [employer] (ADA) provides guidance for cutoff [...] Standards of Medical Care in Diabetes 2016, [place] [employer]. Diabetes Care. 2016.39(Suppl 1). Results may be falsely elevated after the administration of Sulfapyridine. Results may be falsely depressed after the administration of Sulfasalazine. Performed By: #### 4 091-5 #### [facility] CLIA [id number] [address] [place] [address] [place] Potassium [Moles/Vol] 3.2 mmol/L Low 3.5-5.1 [facility] Comment on above: Order Comment: Dora finch Type: BLOOD SPECIMEN Ordering [facility]: [facility] Address: [address] [place] [address] Performed By: #### 4 091-5 #### [facility] CLIA [id number] [address] [place] [address] [place] Protein [Mass/Vol] 6.4 g/dL Normal 6.0-8.5 [facility] Comment on above: Order Comment: Dora finch Type: BLOOD SPECIMEN Ordering [facility]: [facility] Address: [address] [place] [address] Performed By: #### 4 091-5 #### [facility] CLIA [id number] [address] [place] [address] [place] Sodium [Moles/Vol] 136 mmol/L Normal 136-145 [facility] Comment on above: Order Comment: Dora finch Type: BLOOD SPECIMEN Ordering [facility]: [facility] Address: [address] [place] [address] Performed By: #### 4 091-5 #### [facility] CLIA [id number] [address] [place] [address] [place] Urea nitrogen [Mass/Vol] 9 mg/dL Normal 7-26 [facility] Comment on above: Order Comment: Speci men Type: BLOOD SPECIMEN Ordering Facility: [facility] Address: [address] [place] [address] Performed By: #### 4 091-5 #### [facility] CLIA [id number] [address] [place] [address] [place] Gastrointestinal pathogens p bowen LAUREANO+probe (Stl)on 10-22-2024 ADENOVIRUS F 40/41 DNA Not detected Normal Not Detected [facility] Comment on above: Order Comment: Speci men Type: STOOL SPECIMENOrdering Facility: [facility] Address: [address] [place] [address] Performed By: #### 7 9381-0 ####[facility]ORYCLIA [id number] [place] [address] [place] ASTROVIRUS RNA Not detected Normal Not Detected [facility] Comment on above: Order Comment: Speci men Type: STOOL SPECIMENOrdering Facility: [facility] Address: [address] [place] [address] Performed By: #### 7 9381-0 ####[facility]ORYCLIA [id number] [place] [address] [place] C. cayetanensis DNA LAUREANO+probe Ql (Unsp spec) Not detected Normal Not Detected [facility] Comment on above: Order Comment: Speci men Type: STOOL SPECIMENOrdering Facility: [facility] Address: [address] [place] [address] Performed By: #### 7 9381-0 ####[facility]ORYCLIA [id number] [place] [address] [place] Campylobacter sp DNA.diarrheagenic LAUREANO+probe Ql (Stl) Not detected Normal Not Detected [facility] Comment on above: Order Comment: Speci men Type: STOOL SPECIMENOrdering Facility: [facility] Address: [address] [place] [address] Performed By: #### 7 9381-0 ####[facility]ORYCLIA [id number] [place] [address] [place] Cryptosporidium sp DNA LAUREANO+probe Ql (Unsp spec) Not detected Normal Not Detected [facility] Comment on above: Order Comment: Speci men Type: STOOL SPECIMENOrdering Facility: [facility] Address: [address] [place] [address] Performed By: #### 7 9381-0 ####[facility]ORYCLIA [id number] [address] [place] E. coli O157:H7 DNA LAUREANO+probe Ql (Unsp spec) Not applicable Normal Not detected [facility] Comment on above: Order Comment: Speci men Type: STOOL SPECIMENOrdering Facility: [facility] Address: [address] [place] [address] Performed By: #### 7 9381-0 ####[facility]ORYCLIA [id number] [place] [address] [place] [facility] [place] E. coli stx1+stx2 genes LAUREANO+probe Ql (Stl) Not detected Normal Not Detected [facility] Comment on above: Order Comment: Speci men Type: STOOL SPECIMENOrdering Facility: [facility] Address: [address] [place] [address] Performed By: #### 7 9381-0 ####[facility]ORYCLIA [id number] [address] [place] E. histolytica DNA LAUREANO+probe Ql (Unsp spec) Not detected Normal Not Detected [facility] Comment on above: Order Comment: Speci men Type: STOOL SPECIMENOrdering Facility: [facility] Address: [address] [place] [address] Performed By: #### 7 9381-0 ####[facility]ORYCLIA [id number] [address] [place] ENTEROAGGREGATIVE E. COLI (EAEC) DNA Not detected Normal Not Detected [facility] Comment on above: Order Comment: Speci men Type: STOOL SPECIMENOrdering Facility: [facility] Address: [address] [place] [address] Performed By: #### 7 9381-0 ####[facility]ORYCLIA [id number] [place] [address] [place] ENTEROPATHOGENIC E. COLI (EPEC) DNA Not detected Normal Not detected [facility] Comment on above: Order Comment: Speci men Type: STOOL SPECIMENOrdering Facility: [facility] Address: [address] [place] [address] Performed By: #### 7 9381-0 ####[facility]ORYCLIA [id number] [place] [address] [place] ENTEROTOXIGENIC E. COLI (ETEC) DNA Not detected Normal Not Detected [facility] Comment on above: Order Comment: Speci men Type: STOOL SPECIMENOrdering Facility: [facility] Address: [address] [place] [address] Performed By: #### 7 9381-0 ####[facility]ORYCLIA [id number] [place] [address] [place] G. lamblia DNA LAUREANO+probe Ql (Unsp spec) Not detected Normal Not Detected [facility] Comment on above: Order Comment: Speci men Type: STOOL SPECIMENOrdering Facility: [facility] Address: [address] [place] [address] Performed By: #### 7 9381-0 ####[facility]ORYCLIA [id number] [place] [address] [place] NOROVIRUS GI/GII RNA Not detected Normal Not Detected [facility] Comment on above: Order Comment: Speci men Type: STOOL SPECIMENOrdering Facility: [facility] Address: [address] [place] [address] Performed By: #### 7 9381-0 ####[facility]ORYCLIA [id number] [place] [address] [place] PLESIOMONAS SHIGELLOIDES DNA Not detected Normal Not Detected [facility] Comment on above: Order Comment: Speci men Type: STOOL SPECIMENOrdering Facility: [facility] Address: [address] [place] [address] Performed By: #### 7 9381-0 ####[facility]ORYCLIA [id number] [place] [address] [place] [place] ROTAVIRUS A RNA Not detected Normal Not Detected [facility] Comment on above: Order Comment: Speci men Type: STOOL SPECIMENOrdering Facility: [facility] Address: [address] [place] [address] Performed By: #### 7 9381-0 ####[facility]ORYCLIA [id number] [place] [address] [place] Salmonella sp DNA LAUREANO+probe Ql (Unsp spec) Not detected Normal Not Detected [facility] Comment on above: Order Comment: Speci men Type: STOOL SPECIMENOrdering Facility: [facility] Address: [address] [place] [address] Performed By: #### 7 9381-0 ####[facility]ORYCLIA [id number] [place] [address] [place] SAPOVIRUS (GENOGROUPS I, II, IV, V) RNA Not detected Normal Not Detected [facility] Comment on above: Order Comment: Speci men Type: STOOL SPECIMENOrdering Facility: [facility] Address: [address] [place] [address] Performed By: #### 7 9381-0 ####[facility]ORYCLIA [id number] [place] [address] [place] Shigella species+EIEC invasion plasmid antigen H ipaH gene LAUREANO+probe Ql (Stl) Not detected Normal Not Detected [facility] Comment on above: Order Comment: Speci men Type: STOOL SPECIMENOrdering Facility: [facility] Address: [address] [place] [address] Performed By: #### 7 9381-0 ####[facility]ORYCLIA [id number] [place] [address] [place] V. cholerae DNA LAUREANO+probe Ql (Unsp spec) Not detected Normal Not Detected [facility] Comment on above: Order Comment: Speci men Type: STOOL SPECIMENOrdering Facility: [facility] Address: [address] [place] [address] Performed By: #### 7 9381-0 ####[facility]ATORYCLIA [id number] [place] [address] [place] Vibrio sp DNA LAUREANO+probe Nom (Unsp spec) Not detected Normal Not Detected [facility] Comment on above: Order Comment: Speci men Type: STOOL SPECIMENOrdering Facility: [facility] Address: [address] [place] [address] Performed By: #### 7 9381-0 ####[facility]ORYCLIA [id number] [place] [address] [place] Yersinia sp DNA LAUREANO+probe Nom (Unsp spec) Not detected Normal Not Detected [facility] Comment on above: Order Comment: Speci men Type: STOOL SPECIMENOrdering Facility: [facility] Address: [address] [place] [address] Performed By: #### 7 9381-0 ####[facility]ORYCLIA [id number] [place] [address] [place] Magnesium SerPl-mCncon 10-22 Magnesium [Mass/Vol] 1.3 mg/dL Low 1.6-2.6 [facility] Comment on above: Order Comment: Speci men Type: BLOOD SPECIMEN Ordering [facility]: [facility] Address: [address] [place] [address] Performed By: #### 4 091-5 #### [facility] CLIA [id number] [address] [place] [address] [place] C diff Tox gens Stl Ql LAUREANO+p robeon 10-21-2024 C. difficile toxin genes LAUREANO+probe Ql (Stl) Negative Normal Negative for C. difficile toxin by PCR [facility] Comment on above: Order Comment: Speci men Type: BLOOD SPECIMEN Ordering Facility: [facility] Address: [address] [place] [address] Performed By: #### 4 091-5 #### [facility] CLIA [id number] [address] CBC panel Auto (Bld)on 10-21 Erythrocyte distribution width (RBC) [Ratio] 14.6 % Normal 11.5-15.0 [facility] Comment on above: Order Comment: Speci men Type: BLOOD SPECIMEN Ordering [facility]: [facility] Address: [address] [place] [address] Performed By: #### 4 091-5 #### [facility] CLIA [id number] [address] [place] [address] Hematocrit (Bld) [Volume fraction] 31.0 % Low 36.0-46.0 [facility] Comment on above: Order Comment: Speci men Type: BLOOD SPECIMEN Ordering [facility]: [facility] Address: [address] [place] [address] Performed By: #### 4 091-5 #### [facility] CLIA [id number] [address] [place] [address] [place] Hemoglobin (Bld) [Mass/Vol] 9.3 g/dL Low 11.5-15.5 [facility] Comment on above: Order Comment: Speci men Type: BLOOD SPECIMEN Ordering [facility]: [facility] Address: [address] [place] [address] Performed By: #### 4 091-5 #### [facility] CLIA [id number] [address] [place] [address] [place] MCH (RBC) [Entitic mass] 24.1 pg Low 26.0-34.0 [facility] Comment on above: Order Comment: Speci men Type: BLOOD SPECIMEN Ordering [facility]: [facility] Address: [address] [place] [address] Performed By: #### 4 091-5 #### [facility] CLIA [id number] [address] [place] [address] MCHC (RBC) [Mass/Vol] 30.0 g/dL Low 30.5-36.0 [facility] Comment on above: Order Comment: Speci men Type: BLOOD SPECIMEN Ordering [facility]: [facility] Address: [address] [place] [address] Performed By: #### 4 091-5 #### [facility] CLIA [id number] [address] [place] [address] [place] MCV (RBC) [Entitic vol] 80.3 fL Normal 80.0-100.0 [facility] Comment on above: Order Comment: Speci men Type: BLOOD SPECIMEN Ordering Facility: [facility] Address: [address] [place] [address] Performed By: #### 4 091-5 #### [facility] CLIA [id number] [address] [place] [address] [place] Nucleated RBC (Bld) [#/Vol] 10*3/uL Normal <0.01 [facility] Comment on above: Order Comment: Speci men Type: BLOOD SPECIMEN [facility]ing [facility]: [facility] Address: [address] [place] [address] Performed By: #### 4 091-5 #### [facility] CLIA [id number] [address] [place] [address] [place] Platelet mean volume (Bld) [Entitic vol] 8.9 fL Low 9.0-12.7 [facility] Comment on above: Order Comment: Speci men Type: BLOOD SPECIMEN Ordering [facility]: [facility] Address: [address] [place] [address] Performed By: #### 4 091-5 #### [facility] CLIA [id number] [address] [place] [address] [place] Platelets (Bld) [#/Vol] 441 10*3/uL High 150-400 [facility] Comment on above: Order Comment: Speci men Type: BLOOD SPECIMEN [facility]ing [facility]: [facility] Address: [address] [place] [address] Performed By: #### 4 091-5 #### [facility] CLIA [id number] [address] [place] [address] [place] RBC (Bld) [#/Vol] 3.86 10*6/uL Low 3.90-5.20 [facility] Comment on above: Order Comment: Speci men Type: BLOOD SPECIMEN [facility]ing [facility]: [facility] Address: [address] [place] [address] Performed By: #### 4 091-5 #### [facility] CLIA [id number] [address] [place] [address] STATES [place] [facility] WBC (Bld) [#/Vol] 5.24 10*3/uL Normal 3.70-11.00 [facility] Comment on above: Order Comment: Speci men Type: BLOOD SPECIMEN [facility]ing [facility]: [facility] Address: [address] [place] [address] Performed By: #### 4 091-5 #### [facility] CLIA [id number] [address] [place] [place] [address] OF [facility] Comprehensive metabolic 2000 panelon 10-21-2024 Albumin [Mass/Vol] 2.8 g/dL Low 3.2-5.0 [facility] Comment on above: Order Comment: Speci men Type: BLOOD SPECIMEN Ordering [facility]: [facility] Address: [address] [place] [address] Performed By: #### 4 091-5 #### [facility] CLIA [id number] [address] [place] [address] [place] [facility] ALP [Catalytic activity/Vol] 117 U/L Normal 45-117 [facility] Comment on above: Order Comment: Speci men Type: BLOOD SPECIMEN Ordering [facility]: [facility] Address: [address] [place] [address] Performed By: #### 4 091-5 #### [facility] CLIA [id number] [address] [place] [address] ALT [Catalytic activity/Vol] 19 U/L Normal 13-61 [facility] Comment on above: Order Comment: Speci men Type: BLOOD SPECIMEN Ordering Facility: [facility] Address: [address] [place] [address] Result Comment: Resu lts may be falsely depressed after the administration of Sulfasalazine and/or Sulfapyridine. Performed By: #### 4 091-5 #### [facility] CLIA [id number] [address] [place], [place] [address] [place] Anion gap [Moles/Vol] 9 mmol/L Normal 5-16 [facility] Comment on above: Order Comment: Speci men Type: BLOOD SPECIMEN Ordering Facility: [facility] Address: [address] [place] [address] Performed By: #### 4 091-5 #### [facility] CLIA [id number] [address] [place] [address] [place] AST [Catalytic activity/Vol] 13 U/L Normal 8-34 [facility] Comment on above: Order Comment: Speci men Type: BLOOD SPECIMEN Ordering Facility: [facility] Address: [address] [place] [address] Result Comment: Resu lts may be falsely depressed after the administration of Sulfasalazine and/or Sulfapyridine. Performed By: #### 4 091-5 #### [facility] CLIA [id number] [address] [place] [address] [place] Bilirubin [Mass/Vol] 0.9 mg/dL Normal 0.2-1.0 [facility] Comment on above: Order Comment: Florii stef Type: BLOOD SPECIMEN Ordering [facility]: [facility] Address: [address] [place] [address] Performed By: #### 4 091-5 #### [facility] CLIA [id number] [address] [place] [address] [place] Calcium [Mass/Vol] 9.1 mg/dL Normal 8.5-10.5 [facility] Comment on above: Order Comment: Florii men Type: BLOOD SPECIMEN Ordering [facility]: [facility] Address: [address] [place] [address] Performed By: #### 4 091-5 #### [facility] CLIA [id number] [address] [place] [address] [place] Chloride [Moles/Vol] 100 mmol/L Normal 98-107 [facility] Comment on above: Order Comment: Florii men Type: BLOOD SPECIMEN Ordering Facility: [facility] Address: [address] [place] [address] Performed By: #### 4 091-5 #### [facility] CLIA [id number] [address] [place] [address] [place] CO2 [Moles/Vol] 26 mmol/L Normal 21-32 [facility] Comment on above: Order Comment: Speci men Type: BLOOD SPECIMEN Ordering Facility: [facility] Address: [address] [place] [address] Performed By: #### 4 091-5 #### [facility] CLIA [id number] [address] [place] [address] [place] Creatinine [Mass/Vol] 0.98 mg/dL High 0.51-0.95 [facility] Comment on above: Order Comment: lForii men Type: BLOOD SPECIMEN Ordering [facility]: [facility] Address: [address] [place] [address] Result Comment: Marissa ents receiving either N-Acetylcysteine (NAC) or Metamizole prior to venipuncture, may have falsely depressed results. Performed By: #### 4 091-5 #### [facility] CLIA [id number] [address] [place] [address] [place] Creatinine and Glomerular filtration rate.predicted panel (S/P/Bld) 75 mL/min/1.73m??? Normal >=60 [facility] Comment on above: Order Comment: Florii men Type: BLOOD SPECIMEN Ordering [facility]: [facility] Address: [address] [place] [address] Result Comment: Zeny mated Glomerular Filtration Rate [...] GFR. Performed By: #### 4 091-5 #### [facility] CLIA [id number] [address] [place], [place] [address] [place] Glucose [Mass/Vol] 140 mg/dL High 70-100 [facility] Comment on above: Order Comment: Dora finch Type: BLOOD SPECIMEN Ordering [facility]: [facility] Address: [address] [place] [address] Result Comment: The [place] Diabetes [employer] (ADA) provides guidance for cutoff [...] Standards of Medical Care in Diabetes 2016, [place]. Diabetes Care. 2016.39(Suppl 1). Results may be falsely elevated after the administration of Sulfapyridine. Results may be falsely depressed after the administration of Sulfasalazine. Performed By: #### 4 091-5 #### [facility] CLIA [id number] [address] [place] [address] [place] Potassium [Moles/Vol] 2.8 mmol/L Low 3.5-5.1 [facility] Comment on above: Order Comment: Dora finch Type: BLOOD SPECIMEN Ordering Facility: [facility] Address: [address] [place] [address] Performed By: #### 4 091-5 #### [facility] CLIA [id number] [address] [place] [address] [place] Protein [Mass/Vol] 6.7 g/dL Normal 6.0-8.5 [facility] Comment on above: Order Comment: Dora finch Type: BLOOD SPECIMEN Ordering Facility: [facility] Address: [address] [place] [address] Performed By: #### 4 091-5 #### [facility] CLIA [id number] [address] [place] [address] [place] Sodium [Moles/Vol] 135 mmol/L Low 136-145 [facility] Comment on above: Order Comment: Speci men Type: BLOOD SPECIMEN Ordering Facility: [facility] Address: [address] [place] [address] Performed By: #### 4 091-5 #### [facility] CLIA [id number] [address] [place] [address] [place] Urea nitrogen [Mass/Vol] 9 mg/dL Normal - [facility] Comment on above: Order Comment: Speci men Type: BLOOD SPECIMEN Ordering [facility]: [facility] Address: [address] [place] [address] Performed By: #### 4 091-5 #### [facility] CLIA [id number] [address] [place] [address] [place] Magnesium SerPl-mCncon 10-21 Magnesium [Mass/Vol] 1.4 mg/dL Low 1.6-2.6 [facility] Comment on above: Order Comment: Speci men Type: BLOOD SPECIMEN Ordering [facility]: [facility] Address: [address] [place] [address] Performed By: #### 4 091-5 #### [facility] CLIA [id number] [address] [place] [address] [place] Basic metabolic 2000 panelon 10-20-2024 Anion gap [Moles/Vol] 10 mmol/L Normal 5-16 [facility] Comment on above: Order Comment: Speci men Type: BLOOD SPECIMEN Ordering [facility]: [facility] Address: [address] [place] [address] Performed By: #### 4 5066-8 #### [facility] CLIA [id number] [address] [place] [address] [place] Calcium [Mass/Vol] 9.2 mg/dL Normal 8.5-10.5 [facility] Comment on above: Order Comment: Speci men Type: BLOOD SPECIMEN Ordering [facility]: [facility] Address: [address] [place] [address] Performed By: #### 4 5066-8 #### [facility] CLIA [id number] [address] [place] [address] [place] Chloride [Moles/Vol] 100 mmol/L Normal 98-107 [facility] Comment on above: Order Comment: Speci men Type: BLOOD SPECIMEN Ordering Facility: [facility] Address: [address] [place] [address] Performed By: #### 4 5066-8 #### [facility] CLIA [id number] [address] [place] [address] [place] CO2 [Moles/Vol] 21 mmol/L Normal 21-32 [facility] Comment on above: Order Comment: Speci men Type: BLOOD SPECIMEN Ordering [facility]: [facility] Address: [address] [place] [address] Performed By: #### 4 5066-8 #### [facility] CLIA [id number] [address] [place] [address] [place] Creatinine [Mass/Vol] 1.17 mg/dL High 0.51-0.95 [facility] Comment on above: Order Comment: Speci men Type: BLOOD SPECIMEN Ordering [facility]: [facility] Address: [address] [place] [address] Result Comment: Marissa ents receiving either N-Acetylcysteine (NAC) or Metamizole prior to venipuncture, may have falsely depressed results. Performed By: #### 4 5066-8 #### [facility] CLIA [id number] [address] [place] [address] [place] Creatinine and Glomerular filtration rate.predicted panel (S/P/Bld) 60 mL/min/1.73m??? Normal >=60 [facility] Comment on above: Order Comment: Speci men Type: BLOOD SPECIMEN Ordering [facility]: [facility] Address: [address] [place] [address] Result Comment: Zeny mated Glomerular Filtration Rate [...] GFR. Performed By: #### 4 5066-8 #### [facility] CLIA [id number] [address] [place] [address] [place] Glucose [Mass/Vol] 118 mg/dL High 70-100 [facility] Comment on above: Order Comment: Dora finch Type: BLOOD SPECIMEN Ordering Facility: [facility] Address: [address] [place] [address] Result Comment: The [place] Diabetes Association (ADA) provides guidance for cutoff [...] Standards of Medical Care in Diabetes 2016, [place]. Diabetes Care. 2016.39(Suppl 1). Results may be falsely elevated after the administration of Sulfapyridine. Results may be falsely depressed after the administration of Sulfasalazine. Performed By: #### 4 5066-8 #### [facility] CLIA [id number] [address] [place] [address] [place] Potassium [Moles/Vol] 3.3 mmol/L Low 3.5-5.1 [facility] Comment on above: Order Comment: Dora finch Type: BLOOD SPECIMEN Ordering Facility: [facility] Address: [address] [place] [address] Performed By: #### 4 5066-8 #### [facility] CLIA [id number] [address] [place] [address] [place] Sodium [Moles/Vol] 131 mmol/L Low 136-145 [facility] Comment on above: Order Comment: Speci men Type: BLOOD SPECIMEN Ordering Facility: [facility] Address: [address] [place] [address] Performed By: #### 4 5066-8 #### [facility] CLIA [id number] [address] [place] [address] [place] Urea nitrogen [Mass/Vol] 13 mg/dL Normal 01-19 [facility] Comment on above: Order Comment: Speci men Type: BLOOD SPECIMEN Ordering Facility: [facility] Address: [address] [place] [address] Performed By: #### 4 5066-8 #### [facility] CLIA [id number] [address] [place] [address] [place] CBC panel Auto (Bld)on 10-20 Erythrocyte distribution width (RBC) [Ratio] 14.6 % Normal 11.5-15.0 [facility] Comment on above: Order Comment: Speci men Type: BLOOD SPECIMEN Ordering Facility: [facility] Address: [address] [place] [address] Performed By: #### 4 5066-8 #### [facility] CLIA [id number] [address] [place] [address] [place] Hematocrit (Bld) [Volume fraction] 32.1 % Low 36.0-46.0 [facility] Comment on above: Order Comment: Speci men Type: BLOOD SPECIMEN Ordering Facility: [facility] Address: [address] [place] [address] Performed By: #### 4 5066-8 #### [facility] CLIA [id number] [address] [place] [address] [place] Hemoglobin (Bld) [Mass/Vol] 10.3 g/dL Low 11.5-15.5 [facility] Comment on above: Order Comment: Speci men Type: BLOOD SPECIMEN Ordering Facility: [facility] Address: [address] [place] [address] Performed By: #### 4 5066-8 #### [facility] CLIA [id number] [address] [place] [address] MCH (RBC) [Entitic mass] 24.5 pg Low 26.0-34.0 [facility] Comment on above: Order Comment: Speci men Type: BLOOD SPECIMEN Ordering Facility: [facility] Address: [address] [place] [address] Performed By: #### 4 5066-8 #### [facility] CLIA [id number] [address] [place] [place] [address] OF [place] MCHC (RBC) [Mass/Vol] 32.1 g/dL Normal 30.5-36.0 [facility] Comment on above: Order Comment: Speci men Type: BLOOD SPECIMEN Ordering Facility: [facility] Address: [address] [place] [address] Performed By: #### 4 5066-8 #### [facility] CLIA [id number] [address] [place] [address] [place] MCV (RBC) [Entitic vol] 76.4 fL Low 80.0-100.0 [facility] Comment on above: Order Comment: Speci men Type: BLOOD SPECIMEN Ordering Facility: [facility] Address: [address] [place] [address] Performed By: #### 4 5066-8 #### [facility] CLIA [id number] [address] [place] [place] [address] OF [place] Nucleated RBC (Bld) [#/Vol] 10*3/uL Normal <0.01 [facility] Comment on above: Order Comment: Speci men Type: BLOOD SPECIMEN Ordering Facility: [facility] Address: [address] [place] [address] Performed By: #### 4 5066-8 #### [facility] CLIA [id number] [address] [place] [address] [place] Platelet mean volume (Bld) [Entitic vol] 9.1 fL Normal 9.0-12.7 [facility] Comment on above: Order Comment: Speci men Type: BLOOD SPECIMEN Ordering Facility: [facility] Address: [address] [place] [address] Performed By: #### 4 5066-8 #### [facility] CLIA [id number] [address] [place] [address] [facility] [place] Platelets (Bld) [#/Vol] 485 10*3/uL High 150-400 [facility] Comment on above: Order Comment: Speci men Type: BLOOD SPECIMEN Ordering Facility: [facility] Address: [address] [place] [address] Performed By: #### 4 5066-8 #### [facility] CLIA [id number] [address] [place] [place] [address] OF AARON RBC (Bld) [#/Vol] 4.20 10*6/uL Normal 3.90-5.20 [facility] Comment on above: Order Comment: Speci men Type: BLOOD SPECIMEN Ordering Facility: [facility] Address: [address] [place], [place] [address] Performed By: #### 4 5066-8 #### [facility] CLIA [id number] [address] [place] [address] WBC (Bld) [#/Vol] 8.42 10*3/uL Normal 3.70-11.00 [facility] Comment on above: Order Comment: Speci men Type: BLOOD SPECIMEN Ordering Facility: [facility] Address: [address] [place] [address] Performed By: #### 4 5066-8 #### [facility] CLIA [id number] [address] [place] [address] CONSULTon 10-20-2024 CONSULT HNO ID: [id number] Author: TUNG JENNINGS MD Service: Gastroenterology Author [...] extremity lateral fasciotomy closures 08/23/2024, presented to [facility] on 10/19 from SNF for frequent recurring diarrhea. Noted recent hospitalization here at [facility] for accidental overdose at her facility with [...] any abdomin (more content not included)... Normal [facility] ED MED ADMINISTRATION DETAIL on 10-20-2024 ED MED ADMINISTRATION DETAIL Business Enterprise Officer Medication Administration Record [facility] [address] [place] [address] [id number] 10/19/2024 Patient: DALY EVANS Sex: Female : 1985 Age: 39y MEASUREMENTS: Wt: 86.2 kg, Ht/Jean-Paul: 67.0 in, BMI: 29.76 ALLERGIES: Duarte Medication Ordered Medication Administration Date/Time IV NS [...] 19:20 John Velasco R.N. 1 of 2 Business Enterprise Officer Medication Ordered Medication Administration Date/Time IV NS 0.9 % 1000 18:13 10/19 IV NS 0.9 % 1000 mL started in bag#2 1000 mL at Started mL at 250 mL/hr 250 mL/hr via Site# 1. Allergies verified and confirmed 5 rights. IV 18:10/19/2024 (NOW x1) patency established. IV site checked: [...] John Velasco R.N. 2 of 2 Normal [facility] ED NURSES CLINICAL NOTEon ED NURSES CLINICAL NOTE Nurse Narrative Nurse Clinical [address] [place] [address] [id number] 10/19/2024 14:05:00 Patient: DALY EVANS Sex: Female : 1985 Age: 39y Disposition: Transfer to [facility] Disposition Decision Time: 19:10/19/2024 Departure Time: 20:10/19/2024 TRIAGE Arrived by EMS. Historian: (patient). Unaccompanied. Primary physician (Dr Boland). Triage time: 14:10/19/2024. Acuity: LEVEL 3. Chief Complaint: DIZZINESS and NEAR-SYNCOPE. Alert. No acute distress. This started 1 week. ( Patient reports she becomes dizzy when standing up and has fallen down to her knees multiple times over the last week. She denies any syncopal episodes.). SEPSIS SCREEN: NEGATIVE. SIRS criteria negative. No possible sources of infection. -- 14:10/19/24 EDT Prashanth Isidro R.N. 14:10/19/24. BP: 90/63 MAP: 72. HR: 111. RR: 16. O2 saturation: 99% Temperature: 98.1 F. Pain level now 0/10. -- 14:10/19/24 EDT Prashanth Isidro R.N. Measurements: 14:10/19/24 Wt: 86.2 kg, [...] twice a day . -- 14:10/19/24 CHARLY sIidro R.N. pantoprazole 40 mg tablet,delayed release: 1 [...] three times a day . -- 14:10/19/24 [place] Prashanth Isidro R.N. ferrous sulfate 325 mg (65 mg iron) tablet: 1 tablet once a day . -- 14:10/19/24 [place] Prashanth Isidro R.N. escitalopram 20 mg tablet: 1 tablet once a day . -- 14:10/19/24 [place] Prashanth Isidro R.N. LomotiL 2.5 mg-0.025 mg tablet: 2.5 mg three times a day for diarrhea. -- 14:10/19/24 [place] Prashanth Isidro R.N. Allergies: Duarte -- 14:10/19/24 [place] Prashanth Isidro R.N. Problems: superior mesenteric artery injury -- 14:10/19/24 [place] Prashanth Isidro R.N. embolism and thrombosis of thoracic aorta -- 14:10/19/24 [place] Prashanth Isidro R.N. 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 psychcoactive substance abuse -- 14:10/19/24 [place] Prashanth Isidro R.N. history of suicide attempt -- 14:10/19/24 [place] Prashanth Isidro R.N. Depression -- 14:10/19/24 [place] Prashanth Isidro R.N. Diabetes Mellitus -- 14:10/19/24 [place] Prashanth Isidro R.N. Monoclonal gammopathy (clinical) -- 14:10/19/24 [place] Prashanth Isidro R.N. Thrombophilia -- 14:10/19/24 [place] Prashanth Isidro R.N. Hyperlipidemia -- 14:10/19/24 [place] Prashanth Isidro R.N. Iron deficiency anemia -- [...] of abuse (more content not included)... Normal [facility] ED ORDER SHEET (CPOE ONLY)on 10-20-2024 ED ORDER SHEET (CPOE ONLY) Order Sheet Order Sheet [address] [address] [id number] 10/19/2024 Patient: DALY EVANS Sex: Female : 1985 Age: 39y MEASUREMENTS: Wt: 86.2 kg, Ht/Jean-Paul: 67.0 in, BMI: 29.76 ALLERGIES: Duarte MEDICATION/IV/DRIP/FLUID ORDERS Order Description Priority Entered Acknowledged Completed IV NS 0.9 %1000 mL at 999 14:51 10/19/2024 14:51 14:55 mL/hr (NOW x1) Herbert Gandhi, 10/19/2024 10/19/2024 Shameka Purcell R.N. IV NS 0.9 %1000 mL at 250 17:10 10/19/2024 17:11 18:14 mL/hr (NOW x1) Herbert Gandhi, 10/19/2024 10/19/2024 Shameka Purcell R.N. Reason for ordering with alerts: Benefits outweigh risks --17:10 10/19/2024 Herbert Gandhi D.O. LAB ORDERS Order Description Priority Entered Acknowledged Collected Completed CBC w Diff Stat Stat 14:51 10/19/2024 14:51 10/19/2024 19:26 10/19/2024 Maliha Alaniz R.N. Charles Wilbur, D.O. R.N. 1 of 2 Order Sheet CMP Stat Stat 14:51 10/19/2024 14:51 10/19/2024 19:26 10/19/2024 Maliha Alaniz R.N. Charles Wilbur, D.O. RIrene Troponin-I Stat Stat 14:51 10/19/2024 14:51 10/19/2024 19:26 10/19/2024 Maliha Alaniz R.N. Charles Wilbur, D.O. RIrene Urinalysis Stat Stat 14:51 10/19/2024 Cancelled: Patient Off Unit Herbert Gandhi, 20:20 EDT John Velasco R.N. D.O. EKG [...] Lock 14:51 10/19/2024 14:51 10/19/2024 19:26 10/19/2024 Herbert Gandhi, Maliha Rosen R.N. John Velasco D.O. R.N. [Electronically signed by Herbert Gandhi D.O. (10/20/2024 07:16 EDT)] 2 of 2 Normal [facility] ED PHYSICIAN CLINICAL REPORT on 10-20-2024 ED PHYSICIAN CLINICAL REPORT Narrative Physician Clinical Narrative [place] [address] [place] [address] [id number] 10/19/2024 14:05:00 Patient: DALY EVANS Sex: Female : 1985 Age: 39y Disposition: Transfer to [facility] Disposition Decision Time: 19:03 10/19/2024 Departure Time: [...] ileostomy in place she is at the group home recuperating getting TPN. And the last room 5 days she has been getting dehydrated she so she drank something or gets fluids it comes out her bag. And she has been feeling lightheaded she has been passing out and they may give her IV fluids it is a group home and it has not been working.). Described [...] syringe: twice a day . (give per [place] MAR dose of 0.95ml) escitalopram 20 mg [...] 1500 mg twice a day . Allergies: Duarte SOCIAL HISTORY Never smoker. No alcohol use. [...] Above high (more content not included)... Normal [facility] ED [facility] BILLon 10-20-2024 ED [facility] [address] [place] [address] [id number] 10/19/2024 Patient: DALY EVANS Sex: Female : 1985 Age: 39y Facility Professional Category Item Description Code Code Quantity Fee Total Drugs Normal Saline 945871 2 $0.00 $0.00 1000cc (240033) Nurse/E/M EMERGENCY 004015 1 $0.00 $0.00 DEPT VISIT HIGH SEVERITYFUNCJ (33587-65) Nurse/IV/IM/Infusions Hydration 976162 4 $0.00 $0.00 additional hour (52377) Nurse/IV/IM/Infusions Hydration initial 086175 1 $0.00 $0.00 (71534) Grand $0.00 Total Providers Herbert Gandhi D.O. Chief Complaint 1 of 2 Superbill NEAR-SYNCOPE. ( patient came in she is had abdominal surgery which has a ileostomy in place she is at the group home recuperating getting TPN. And the last room 5 days she has been getting dehydrated she so she drank something or gets fluids it comes out her bag. And she has been feeling lightheaded she has been passing out and they may give her IV fluids it is a group home and it has not been working.). Principal Diagnosis Dizziness. Syncope. Renal insufficiency. questioning dumping syndrome. ICD-10 Codes R55: Syncope and collapse R42: Dizziness and giddiness N28.9: Disorder of kidney and ureter, unspecified 2 of 2 Normal [facility] ED VISIT SUMMARYon ED VISIT SUMMARY Visit Overview Visit Overview [address] [place] [address] [id number] 10/19/2024 Patient: DALY EVANS Sex: Female : 1985 Age: 39y 10/20/2024 07:16 AM EDT ED Arrival:14:05 10/19/2024 EDT Status: Recent Travel:no Language:eng Adv Directive: Isolation Status: Ethnicity:N Fall Risk:no risk Infectious Disease Exposure:no Measurements:5'7" / 170.2 Self-Harm Status:no risk Sepsis Screen:negative cm 190.0 lb / 86.2 kg Chief Complaint:DIZZINESS, NEAR-SYNCOPE, (1 week), (Dr Boland), and (Patient reports she becomes dizzy when standing up and has fallen down to her knees multiple times over the last week. She denies any syncopal episodes. ) ALLERGIES Duarte HOME MEDICATIONS acetaminophen 325 mg chewable tablet: 1 tablet every six hours . 1 of 4 Visit Overview aspirin 81 mg chewable tablet: 1 tablet once a day . atorvastatin 40 mg tablet: 1 tablet once a day . enoxaparin 100 mg/mL subcutaneous syringe: twice a day . (give per [place] MAR dose of 0.95ml) escitalopram 20 mg [...] RENAL INSUFFICIENCY SYNCOPE 4 of 4 Normal [facility] ED VITALS FLOW SHEETon 10-20 ED VITALS FLOW SHEET Vitals Vital Sign Flow Sheet [address] [address] [id number] 10/19/2024 Patient: DALY EVANS Sex: Female : [...] 98.1 F 0 1 of 1 Normal [facility] Magnesium SerPl-mCncon 10-20 Magnesium [Mass/Vol] 1.7 mg/dL Normal 1.6-2.6 [facility] Comment on above: Order Comment: Speci men Type: BLOOD SPECIMEN Ordering Facility: [facility] Address: [address] [place] [address] Performed By: #### 4 5066-8 #### [facility] CLIA [id number] [address] [place] [address] [facility] NUTRITIONon 10-20-2024 NUTRITION HNO ID: [id number] Author: MOUNIKA SARABIA RD Service: ? Author Type: Registered Dietitian Type: Nutrition Filed: 10/20/2024 15:19 Note Text: NUTRITION THERAPY INITIAL ASSESSMENT SERVICE DATE: 10/20/2024 SERVICE TIME: Start Time: 1251 REASON: MST Nutrition Assessment: Recommended Malnutrition Diagnosis: Mild Protein-Calorie [...] needs: 1849 - 2049 Calorie Calculation Method: [place]. [place] (with activity factor) Estimated protein needs (grams): 120 - 130 Grams protein determined by: (>/= 2.0 g/kg IBW) Diet Orders (From admission, onward) Start Ordered 10/19/242314 DIET REGULAR START NOW Question: Tray Precautions Answer: TRAY PRECAUTIONS NOT REQUIRED 10/19/242318 Anthropometrics: Height: 170.2 cm (5' 7") Weight: 87.3 kg (192 lb 7.4 oz) [...] October 20, 2024 TIME: 2:59 PM Normal [facility] TSH SerPl-aCncon 10-20-2024 TSH Qn 2.798 m[IU]/L Normal 0.358-3.740 [facility] Comment on above: Order Comment: Speci men Type: BLOOD SPECIMEN Ordering Facility: [facility] Address: [address] [place] [address] Result Comment: 3rd generation ultra sensitive TSH. Performed By: #### 4 5066-8 #### [facility] CLIA [id number] [address] [place] [address] [place] BMP with eGFRon 10-19-2024 AGE 39 years Normal [facility] Comment on above: Performed By: #### 2 77772 #### [facility],[address] [place] [address] Anion gap [Moles/Vol] 17 mmol/L Normal 10 - 20 [facility] Comment on above: Performed By: #### 2 55755 #### [facility],[address] [place] [address] 063[address] BMP with eGFR Normal [facility] Comment on above: Result Comment: BASI C METABOLIC PANEL Performed By: #### 2 00252 #### [facility],[address] [place] [address]42 Calcium [Mass/Vol] 9.8 mg/dL Normal 8.5 - 10.1 [facility] Comment on above: Result Comment: CALC IUM REPEATED Performed By: #### 2 27151 #### [facility],[address] [place], [place] [address] Chloride [Moles/Vol] 97 mmol/L Low 98 - 107 [facility] Comment on above: Performed By: #### 2 13227 #### [facility],[address] [place], [place] [address] CO2 [Moles/Vol] 23.4 mmol/L Normal 21.0 - 32.0 [facility] Comment on above: Performed By: #### 2 17753 #### [facility],[address] [place] [address]406 Creatinine [Mass/Vol] 1.44 mg/dL High 0.55 - 1.02 [facility] Comment on above: Performed By: #### 2 82316 #### [facility],[address] [place] [address]176 eGFR 40 ML/MINUTE Low 60 - 999 [facility] Comment on above: Performed By: #### 2 88277 #### [facility],[address] [place] [address] eGFR(AA) 49 ML/MINUTE Low 60 - 999 [facility] Comment on above: Result Comment: ACCO RDING TO THE NATIONAL KIDNEY DISEASE EDUCATION PROGRAM(NKDE), A NORMAL eGFR IS A VALUE GREATER THAN OR EQUAL TO 60 ML/MIN/1.73 SQ METERS. CHRONIC KIDNEY DISEASE: <60mL/MIN/1.73 SQ METERS KIDNEY FAILURE: <15mL/MIN/1.73 SQ METERS THIS TEST SHOULD ONLY BE USED FOR PATIENTS 18 YEARS OF AGE AND OLDER. Performed By: #### 2 49630 #### [facility],[address] [place] [address] Glucose [Mass/Vol] 108 mg/dL High 74 - 106 [facility] Comment on above: Performed By: #### 2 31853 #### [facility],[address] [place] [address] Potassium [Moles/Vol] 3.0 mmol/L Low 3.5 - 5.1 [facility] Comment on above: Performed By: #### 2 88934 #### [facility],[address] [place] [address] 68312 Sodium [Moles/Vol] 134 mmol/L Low 136 - 145 [facility] Comment on above: Performed By: #### 2 00326 #### [facility],[address] [place] [address] 37764 Urea nitrogen [Mass/Vol] 19 mg/dL High 7 - 18 [facility] Comment on above: Performed By: #### 2 32197 #### [facility],[address] [place] [address] 10240 CBC + DIFFon 10-19-2024 Baso # 0.07 x10EE3/UL Normal 0.00 - 0.10 [facility] Comment on above: Performed By: #### 2 21962 ####[facility],[address] [place] [address] 83584 Basophils/100 WBC (Bld) 0.6 % Normal 0.0 - 2.0 [facility] Comment on above: Performed By: #### 2 80995 ####[facility],[address] [place] [address] 23030 CBC + DIFF Normal [facility] Comment on above: Result Comment: CBC- COMPLETE BLOOD COUNT Performed By: #### 2 75924 ####[facility],[address] [place] [address] 14859 EO # 0.06 x10EE3/UL Normal 0.00 - 0.50 [facility] Comment on above: Performed By: #### 2 24907 ####[facility],[address] [place] [address] 99457 Eosinophils/100 WBC (Bld) 0.5 % Normal 0.0 - 7.0 [facility] Comment on above: Performed By: #### 2 72183 ####[facility],[address] [place] [address] Erythrocyte distribution width (RBC) [Ratio] 16.3 % High 12.0 - 15.6 [facility] Comment on above: Performed By: #### 2 18043 ####[facility],[address] [place] [address] Hematocrit (Bld) [Volume fraction] 38.0 % Normal 34.0 - 46.0 [facility] Comment on above: Performed By: #### 2 67028 ####[facility],[address] [place] [address] Hemoglobin (Bld) [Mass/Vol] 12.6 g/dL Normal 12.0 - 16.0 [facility] Comment on above: Performed By: #### 2 42830 ####[facility],[address] [place] [address] 79212 Lymph # 2.40 x10EE3/UL Normal 0.80 - 2.80 [facility] Comment on above: Performed By: #### 2 05011 ####[facility],[address] [place], [place] [address] Lymphocytes/100 WBC (Bld) 20.0 % Normal 20.0 - 45.0 [facility] Comment on above: Performed By: #### 2 17665 ####[facility],[address] [place] [address] MANUAL DIFF N/A Normal [facility] Comment on above: Performed By: #### 2 16187 ####[facility],[address] [place] [address] 83970 MCH (RBC) [Entitic mass] 25 pg Low 27 - 33 [facility] Comment on above: Performed By: #### 2 71436 ####[facility],[address] [place] [address] 96189 MCHC 33 X10 3 Normal 32 - 36 [facility] Comment on above: Performed By: #### 2 01308 ####[facility],[address] [place] [address] 35001 MCV (RBC) [Entitic vol] 74 fL Low 80 - 99 [facility] Comment on above: Performed By: #### 2 64056 ####[facility],[address] [place] [address] Mccreary # 0.86 x10EE3/UL Normal 0.20 - 1.00 [facility] Comment on above: Performed By: #### 2 95134 ####[facility],[address] [place] [address] 42453 MONOS % 7.2 % Normal 0.0 - 10.0 [facility] Comment on above: Performed By: #### 2 54793 ####[facility],[address] [place] [address] 46900 Morphology Stan (Bld) [Interp] SEE BELOW Normal [facility] Comment on above: Performed By: #### 2 81120 ####[facility],[address] [place] [address] 81051 Neut # 8.62 x10EE3/UL High 1.50 - 7.10 [facility] Comment on above: Performed By: #### 2 03561 ####[facility],[address] [place] [address] 29672 Neutrophils/100 WBC (Bld) 71.8 % Normal 46.0 - 76.0 [facility] Comment on above: Performed By: #### 2 91661 ####[facility],[address] [place] [address] 94050 PLATELET 804 x10EE3/UL High 150 - 450 [facility] Comment on above: Performed By: #### 2 00627 ####[facility],[address] [place] [address] 45769 Platelet mean volume (Bld) [Entitic vol] 7.9 fL Normal 6.6 - 10.5 [facility] Comment on above: Result Comment: AUTO MATED DIFFERENTIAL Performed By: #### 2 50931 ####[facility],[address] [place] [address] 98315 PLT EST INCREASED Normal [facility] Comment on above: Performed By: #### 2 67572 ####[facility],[address] [place] [address] 79744 RBC 5.12 x 10EE6/UL Normal 4.10 - 5.30 [facility] Comment on above: Performed By: #### 2 24269 ####[facility],[address] [place] [address] 38266 WBC 12.0 x 10EE3/UL High 4.5 - 10.8 [facility] Comment on above: Performed By: #### 2 50339 ####[facility],[address] [place] [address] 87657 CMP with eGFRon 10-19-2024 AGE 39 years Normal [facility] Comment on above: Performed By: #### 2 07347 ####[facility],[address] [place] [address] 89243 Albumin [Mass/Vol] 3.5 g/dL Normal 3.4 - 5.0 [facility] Comment on above: Performed By: #### 2 61737 ####[facility],[address] [place] [address] 01649 Albumin/Globulin [Mass ratio] 0.6 {ratio} Low 0.9 - 1.6 [facility] Comment on above: Performed By: #### 2 72483 ####[facility],[address] [place] [address] 59236 ALK PHOS 170 U/L High 46 - 116 [facility] Comment on above: Performed By: #### 2 14663 ####[facility],[address] [place] [address] 83731 ALT [Catalytic activity/Vol] 37 U/L Normal 16 - 63 [facility] Comment on above: Performed By: #### 2 13938 ####[facility],[address] [place] [address] 96362 Anion gap [Moles/Vol] 17 mmol/L Normal 10 - 20 [facility] Comment on above: Performed By: #### 2 86235 ####[facility],[address] [place] [address] 27752 AST [Catalytic activity/Vol] 30 U/L Normal 13 - 39 [facility] Comment on above: Performed By: #### 2 70490 ####[facility],[address] [place] [address] 33723 B/C RATIO 10 ratio Normal 0 - 30 [facility] Comment on above: Performed By: #### 2 35402 ####[facility],[address] [place] [address] 28505 Bilirubin [Mass/Vol] 1.1 mg/dL High 0.2 - 1.0 [facility] Comment on above: Performed By: #### 2 57375 ####[facility],[address] [place] [address] 21641 Calcium [Mass/Vol] 9.7 mg/dL Normal 8.5 - 10.1 [facility] Comment on above: Performed By: #### 2 76495 ####[facility],[address] [place] [address] 41133 Chloride [Moles/Vol] 92 mmol/L Low 98 - 107 [facility] Comment on above: Performed By: #### 2 03902 ####[facility],[address] [place] [address] 09462 CMP with eGFR Normal [facility] Comment on above: Result Comment: COMP REHENSIVE METABOLIC PANEL Performed By: #### 2 07098 ####[facility],[address] [place], [place] [address] CO2 [Moles/Vol] 24.6 mmol/L Normal 21.0 - 32.0 [facility] Comment on above: Performed By: #### 2 81634 ####[facility],[address] [place] [address] Creatinine [Mass/Vol] 2.18 mg/dL High 0.55 - 1.02 [facility] Comment on above: Performed By: #### 2 02957 ####[facility],[address] [place], [place] [address] eGFR 25 ML/MINUTE Low 60 - 999 [facility] Comment on above: Performed By: #### 2 21735 ####[address] [address] eGFR(AA) 30 ML/MINUTE Low 60 - 999 [facility] Comment on above: Result Comment: ACCO RDING TO THE NATIONAL KIDNEY DISEASE EDUCATION PROGRAM(NKDE), A NORMAL eGFR IS A VALUE GREATER THAN OR EQUAL TO 60 ML/MIN/1.73 SQ METERS. CHRONIC KIDNEY DISEASE: <60mL/MIN/1.73 SQ METERS KIDNEY FAILURE: <15mL/MIN/1.73 SQ METERS THIS TEST SHOULD ONLY BE USED FOR PATIENTS 18 YEARS OF AGE AND OLDER. Performed By: #### 2 94394 ####[facility],[address] [place] [address] 46081 Globulin (S) [Mass/Vol] 6.0 g/dL High 1.5 - 3.8 [facility] Comment on above: Performed By: #### 2 60062 ####[facility],[address] [place], [place] [address] Glucose [Mass/Vol] 146 mg/dL High 74 - 106 [facility] Comment on above: Performed By: #### 2 [id number] ####[facility],[address] [place] [address] 25704 Potassium [Moles/Vol] 3.3 mmol/L Low 3.5 - 5.1 [facility] Comment on above: Performed By: #### 2 30905 ####[facility],[address] [place] [address] 67750 Protein [Mass/Vol] 9.5 g/dL High 6.4 - 8.2 [facility] Comment on above: Performed By: #### 2 59170 ####[facility],[address] [place] [address] 72091 Sodium [Moles/Vol] 130 mmol/L Low 136 - 145 [facility] Comment on above: Performed By: #### 2 35508 ####[facility],[address] [place] [address] 40714 Urea nitrogen [Mass/Vol] 21 mg/dL High 7 - 18 [facility] Comment on above: Performed By: #### 2 01326 ####[facility],[address] [place], [place] [id number] HISTORY PHYSICALon HISTORY PHYSICAL HNO ID: [id number] Author: MICHAEL ELLIS MD Service: Hospital Medicine Author Type: Physician Type: H&P Filed: 10/19/2024 23:29 Note Text: HISTORY AND PHYSICAL EXAMINATION PATIENT NAME: Daly Joaquinr SERVICE DATE AND TIME: 10/19/2024 11:22 PM PRIMARY CARE PHYSICIAN: Cosme Boland DO CHIEF COMPLAINT: Persistent stools since having ileostomy placed at [facility] HPI: The patient is a 39-year-old female with a past medical history of bipolar disorder, generalized anxiety/panic disorder, iron deficiency anemia, vitamin D deficiency, tobacco abuse, polysubstance abuse with a history of suicide attempt and presented to [facility] 08/20/2024 with severe abdominal pain and [...] jejunostomy and closure open abdomen 08/22/2024 at [facility] during that stay developed a DVT and was placed on Lovenox, presently in a prison facility who continues to have frequent recurring diarrhea. She was on TPN through a PICC line until 2 weeks ago. Due to her persistent diarrhea she was sent to the outside ER. The outside ER contacted her surgeon at the [facility] who felt patient could safely be [...] suicide (HCC) polysubstance Bipolar depression (HCC) [facility]- Camelia Whyte Gestational diabetes mellitus in [...] Never Tobacco comments: Pateint only uses the "Vape" She doesnt smoke nicotine Patient quit (more content not included)... Normal [facility] MAGNESIUMon 10-19-2024 Magnesium [Mass/Vol] 1.9 mg/dL Normal 1.8 - 2.4 [facility] Comment on above: Performed By: #### 2 42636 #### [facility],[address] [place] [address] TROPONINon 10-19-2024 HS TROPONIN 4.1 pg/mL Normal 0.0 - 51.4 [facility] Comment on above: Performed By: #### 2 05877 #### [facility],[address] [place] [address] BMP with eGFRon 10-16-2024 AGE 39 years Normal [facility] Comment on above: Performed By: #### 2 97771 #### [facility],[address] [place] [address] 61076 Anion gap [Moles/Vol] 14 mmol/L Normal 10 - 20 [facility] Comment on above: Performed By: #### 2 63870 #### [facility],[address] [place] [address] 77567 BMP with eGFR Normal [facility] Comment on above: Result Comment: BASI C METABOLIC PANEL Performed By: #### 2 50202 #### [facility],[address] [place] [address] 98014 Calcium [Mass/Vol] 8.7 mg/dL Normal 8.5 - 10.1 [facility] Comment on above: Performed By: #### 2 62853 #### [facility],[address] [place] [address] 46734 Chloride [Moles/Vol] 99 mmol/L Normal 98 - 107 [facility] Comment on above: Performed By: #### 2 75339 #### [facility],[address] [place] [address] 56404 CO2 [Moles/Vol] 24.5 mmol/L Normal 21.0 - 32.0 [facility] Comment on above: Performed By: #### 2 65783 #### [facility],[address] [place] [address] 49926 Creatinine [Mass/Vol] 1.16 mg/dL High 0.55 - 1.02 [facility] Comment on above: Performed By: #### 2 61391 #### [facility],[address] [place] [address] 85730 eGFR 51 ML/MINUTE Low 60 - 999 [facility] Comment on above: Performed By: #### 2 03186 #### [facility],[address] [place] [address] 73211 GFR/1.73 sq M.predicted among non-blacks MDRD (S/P/Bld) [Vol rate/Area] mL/min/{1.73_m2} Normal 60 - 999 [facility] Comment on above: Result Comment: ACCO RDING TO THE NATIONAL KIDNEY DISEASE EDUCATION PROGRAM(NKDE), A NORMAL eGFR IS A VALUE GREATER THAN OR EQUAL TO 60 ML/MIN/1.73 SQ METERS. CHRONIC KIDNEY DISEASE: <60mL/MIN/1.73 SQ METERS KIDNEY FAILURE: <15mL/MIN/1.73 SQ METERS THIS TEST SHOULD ONLY BE USED FOR PATIENTS 18 YEARS OF AGE AND OLDER. Performed By: #### 2 68307 #### [facility],[address] [place] [address] 40890 Glucose [Mass/Vol] 97 mg/dL Normal 74 - 106 [facility] Comment on above: Performed By: #### 2 39304 #### [facility],[address] [place] [address] 10626 Potassium [Moles/Vol] 3.2 mmol/L Low 3.5 - 5.1 [facility] Comment on above: Performed By: #### 2 03060 #### [facility],[address] [place] [address] 63429 Sodium [Moles/Vol] 134 mmol/L Low 136 - 145 [facility] Comment on above: Performed By: #### 2 69292 #### [facility],[address] [place] [address] 69308 Urea nitrogen [Mass/Vol] 22 mg/dL High 7 - 18 [facility] Comment on above: Performed By: #### 2 73130 #### [facility],[address] [place] [address] 99646 CBC + DIFFon 10-16-2024 Baso # 0.02 x10EE3/UL Normal 0.00 - 0.10 [facility] Comment on above: Performed By: #### 2 35767 #### [facility],[address] [place] [address] 68959 Basophils/100 WBC (Bld) 0.4 % Normal 0.0 - 2.0 [facility] Comment on above: Performed By: #### 2 79240 #### [facility],[address] [place] [address] CBC + DIFF Normal [facility] Comment on above: Result Comment: CBC- COMPLETE BLOOD COUNT Performed By: #### 2 36778 #### [facility],[address] [place] [address] EO # 0.15 x10EE3/UL Normal 0.00 - 0.50 [facility] Comment on above: Performed By: #### 2 64101 #### [facility],[address] [place] [address] Eosinophils/100 WBC (Bld) 2.3 % Normal 0.0 - 7.0 [facility] Comment on above: Performed By: #### 2 48895 #### [facility],[address] [place] [address] Erythrocyte distribution width (RBC) [Ratio] 16.1 % High 12.0 - 15.6 [facility] Comment on above: Performed By: #### 2 82603 #### [facility],[address] [place] [address] Hematocrit (Bld) [Volume fraction] 31.0 % Low 34.0 - 46.0 [facility] Comment on above: Performed By: #### 2 87051 #### [facility],[address] [place] [address] Hemoglobin (Bld) [Mass/Vol] 10.3 g/dL Low 12.0 - 16.0 [facility] Comment on above: Performed By: #### 2 15720 #### [facility],[address] [place] [address] Lymph # 2.20 x10EE3/UL Normal 0.80 - 2.80 [facility] Comment on above: Performed By: #### 2 67153 #### [facility],[address] [place], [place] [address] Lymphocytes/100 WBC (Bld) 33.9 % Normal 20.0 - 45.0 [facility] Comment on above: Performed By: #### 2 78758 #### [facility],[address] [place] [address] MANUAL DIFF N/A Normal [facility] Comment on above: Performed By: #### 2 72986 #### [facility],[address] [place] [address] MCH (RBC) [Entitic mass] 24 pg Low 27 - 33 [facility] Comment on above: Performed By: #### 2 14392 #### [facility],[address] [place] [address] MCHC 33 X10 3 Normal 32 - 36 [facility] Comment on above: Performed By: #### 2 27614 #### [facility],[address] [place], [place] [id number] MCV (RBC) [Entitic vol] 73 fL Low 80 - 99 [facility] Comment on above: Performed By: #### 2 62270 #### [facility],[address] [place] [address] Mccreary # 0.66 x10EE3/UL Normal 0.20 - 1.00 [facility] Comment on above: Performed By: #### 2 95879 #### [facility],[address] [place], [place] [address] MONOS % 10.2 % High 0.0 - 10.0 [facility] Comment on above: Performed By: #### 2 10242 #### [facility],[address] [place] [address] 03866 Morphology Stan (Bld) [Interp] N/A Normal [facility] Comment on above: Performed By: #### 2 89474 #### [facility],[address] [place] [address] 54086 Neut # 3.46 x10EE3/UL Normal 1.50 - 7.10 [facility] Comment on above: Performed By: #### 2 88085 #### [facility],[address] [place] [address] 34542 Neutrophils/100 WBC (Bld) 53.3 % Normal 46.0 - 76.0 [facility] Comment on above: Performed By: #### 2 18515 #### [facility],[address] [place] [address] 62274 PLATELET 516 x10EE3/UL High 150 - 450 [facility] Comment on above: Performed By: #### 2 86520 #### [facility],[address] [place] [address] 90962 Platelet mean volume (Bld) [Entitic vol] 7.2 fL Normal 6.6 - 10.5 [facility] Comment on above: Result Comment: AUTO MATED DIFFERENTIAL Performed By: #### 2 44404 #### [facility],[address] [place] [address] 72407 RBC 4.23 x 10EE6/UL Normal 4.10 - 5.30 [facility] Comment on above: Performed By: #### 2 52956 #### [facility],[address] [place] [address] 38576 WBC 6.5 x 10EE3/UL Normal 4.5 - 10.8 [facility] Comment on above: Performed By: #### 2 36261 #### [facility],[address] [place] [address] 92130 CBC + DIFFon 10-15-2024 Baso # 0.04 x10EE3/UL Normal 0.00 - 0.10 [facility] Comment on above: Performed By: #### 2 63707 #### [facility],[address] [place] [address] 25038 Basophils/100 WBC (Bld) 0.5 % Normal 0.0 - 2.0 [facility] Comment on above: Performed By: #### 2 68592 #### [place] [address] CBC + DIFF Normal [facility] Comment on above: Result Comment: CBC- COMPLETE BLOOD COUNT Performed By: #### 2 32288 #### [place] [address] EO # 0.15 x10EE3/UL Normal 0.00 - 0.50 [facility] Comment on above: Performed By: #### 2 66849 #### [place] [address] Eosinophils/100 WBC (Bld) 1.9 % Normal 0.0 - 7.0 [facility] Comment on above: Performed By: #### 2 97040 #### [place] [address] Erythrocyte distribution width (RBC) [Ratio] 16.6 % High 12.0 - 15.6 [facility] Comment on above: Performed By: #### 2 25586 #### [facility],[address] [place] [address] Hematocrit (Bld) [Volume fraction] 36.9 % Normal 34.0 - 46.0 [facility] Comment on above: Performed By: #### 2 69217 #### [place] [address] Hemoglobin (Bld) [Mass/Vol] 12.3 g/dL Normal 12.0 - 16.0 [facility] Comment on above: Result Comment: TEST REPEATED Performed By: #### 2 85172 #### [place] [address] Lymph # 2.93 x10EE3/UL High 0.80 - 2.80 [facility] Comment on above: Performed By: #### 2 05216 #### [facility],[address] [place], [place] [address] Lymphocytes/100 WBC (Bld) 37.1 % Normal 20.0 - 45.0 [facility] Comment on above: Performed By: #### 2 92274 #### [facility],[address] [place] [address] MANUAL DIFF N/A Normal [facility] Comment on above: Performed By: #### 2 87628 #### [facility],[address] [place] [address] MCH (RBC) [Entitic mass] 25 pg Low 27 - 33 [facility] Comment on above: Performed By: #### 2 51134 #### [facility],[address] [place] [address] MCHC 33 X10 3 Normal 32 - 36 [facility] Comment on above: Performed By: #### 2 13125 #### [facility],[address] [place] [address] MCV (RBC) [Entitic vol] 75 fL Low 80 - 99 [facility] Comment on above: Performed By: #### 2 59489 #### [facility],[address] [place] [address] Mccreary # 0.58 x10EE3/UL Normal 0.20 - 1.00 [facility] Comment on above: Performed By: #### 2 11792 #### [facility],[address] [place], [place] [address] MONOS % 7.3 % Normal 0.0 - 10.0 [facility] Comment on above: Performed By: #### 2 41262 #### [facility],[address] [place] [address] 90539 Morphology Stan (Bld) [Interp] N/A Normal [facility] Comment on above: Performed By: #### 2 01780 #### [facility],[address] [place] [address] 08859 Neut # 4.21 x10EE3/UL Normal 1.50 - 7.10 [facility] Comment on above: Performed By: #### 2 79629 #### [facility],[address] [place] [address] 48754 Neutrophils/100 WBC (Bld) 53.3 % Normal 46.0 - 76.0 [facility] Comment on above: Performed By: #### 2 06838 #### [facility],[address] [place] [address] 03917 PLATELET 562 x10EE3/UL High 150 - 450 [facility] Comment on above: Performed By: #### 2 52850 #### [facility],[address] [place] [address] 45531 Platelet mean volume (Bld) [Entitic vol] 8.2 fL Normal 6.6 - 10.5 [facility] Comment on above: Result Comment: AUTO MATED DIFFERENTIAL Performed By: #### 2 31489 #### [facility],[address] [place] [address] 80034 RBC 4.92 x 10EE6/UL Normal 4.10 - 5.30 [facility] Comment on above: Performed By: #### 2 59808 #### [facility],[address] [place] [address] 03882 WBC 7.9 x 10EE3/UL Normal 4.5 - 10.8 [facility] Comment on above: Performed By: #### 2 20816 #### [facility],[address] [place] [address] 02853 CMP with eGFRon 10-15-2024 AGE 39 years Normal [facility] Comment on above: Performed By: #### 2 43757 #### [facility],[address] [place] [address] 32603 Albumin [Mass/Vol] 2.9 g/dL Low 3.4 - 5.0 [facility] Comment on above: Performed By: #### 2 90889 #### [facility],[address] [place] [address] 44194 Albumin/Globulin [Mass ratio] 0.5 {ratio} Low 0.9 - 1.6 [facility] Comment on above: Performed By: #### 2 45740 #### [facility],[address] [place] [address] 71859 ALK PHOS 151 U/L High 46 - 116 [facility] Comment on above: Performed By: #### 2 03289 #### [facility],[address] [place] [address] 11613 ALT [Catalytic activity/Vol] 45 U/L Normal 16 - 63 [facility] Comment on above: Performed By: #### 2 23719 #### [facility],[address] [place] [address] 04714 Anion gap [Moles/Vol] 21 mmol/L High 10 - 20 [facility] Comment on above: Performed By: #### 2 49207 #### [facility],[address] [place] [address] 94897 AST [Catalytic activity/Vol] 30 U/L Normal 13 - 39 [facility] Comment on above: Performed By: #### 2 25668 #### [facility],[address] [place] [address] 19054 B/C RATIO 19 ratio Normal 0 - 30 [facility] Comment on above: Performed By: #### 2 37237 #### [facility],[address] [place] [address] 20586 Bilirubin [Mass/Vol] 0.9 mg/dL Normal 0.2 - 1.0 [facility] Comment on above: Performed By: #### 2 23936 #### [facility],[address] [place] [address] 69401 Calcium [Mass/Vol] 9.4 mg/dL Normal 8.5 - 10.1 [facility] Comment on above: Result Comment: RESU LTS REPEATED AND VERIFIED Performed By: #### 2 00459 #### [facility],[address] [place] [address] 27443 Chloride [Moles/Vol] 94 mmol/L Low 98 - 107 [facility] Comment on above: Performed By: #### 2 74190 #### [facility],[address] [place] [address] 41746 CMP with eGFR Normal [facility] Comment on above: Result Comment: COMP REHENSIVE METABOLIC PANEL Performed By: #### 2 90403 #### [facility],[address] [place] [address] 70984 CO2 [Moles/Vol] 20.9 mmol/L Low 21.0 - 32.0 [facility] Comment on above: Result Comment: RESU LTS REPEATED AND VERIFIED Performed By: #### 2 68423 #### [facility],[address] [place] [address] 90412 Creatinine [Mass/Vol] 1.49 mg/dL High 0.55 - 1.02 [facility] Comment on above: Result Comment: RESU LTS REPEATED AND VERIFIED Performed By: #### 2 77660 #### [facility],[address] [place] [address] 44911 eGFR 39 ML/MINUTE Low 60 - 999 [facility] Comment on above: Performed By: #### 2 20447 #### [facility],[address] [place] [address] 08885 eGFR(AA) 47 ML/MINUTE Low 60 - 999 [facility] Comment on above: Result Comment: ACCO RDING TO THE NATIONAL KIDNEY DISEASE EDUCATION PROGRAM(NKDE), A NORMAL eGFR IS A VALUE GREATER THAN OR EQUAL TO 60 ML/MIN/1.73 SQ METERS. CHRONIC KIDNEY DISEASE: <60mL/MIN/1.73 SQ METERS KIDNEY FAILURE: <15mL/MIN/1.73 SQ METERS THIS TEST SHOULD ONLY BE USED FOR PATIENTS 18 YEARS OF AGE AND OLDER. Performed By: #### 2 93640 #### [facility],[address] [place] [address] 92103 Globulin (S) [Mass/Vol] 5.8 g/dL High 1.5 - 3.8 [facility] Comment on above: Performed By: #### 2 69337 #### [facility],[address] [place] [address] 35311 Glucose [Mass/Vol] 101 mg/dL Normal 74 - 106 [facility] Comment on above: Performed By: #### 2 14543 #### [facility],[address] [place] [address] 15911 Potassium [Moles/Vol] 3.4 mmol/L Low 3.5 - 5.1 [facility] Comment on above: Performed By: #### 2 41167 #### [facility],[address] [place] [address] 60471 Protein [Mass/Vol] 8.7 g/dL High 6.4 - 8.2 [facility] Comment on above: Performed By: #### 2 53393 #### [facility],[address] [place] [address] 94811 Sodium [Moles/Vol] 132 mmol/L Low 136 - 145 [facility] Comment on above: Performed By: #### 2 62970 #### [facility],[address] [place] [address] 87533 Urea nitrogen [Mass/Vol] 29 mg/dL High 7 - 18 [facility] Comment on above: Performed By: #### 2 28367 #### [facility],[address] [place] [address] 15628 HEMOGLOBIN A1C (POM)on 10-15 Glucose [Mass/Vol] 131.2 mg/dL High 0.0 - 0.0 [facility] Comment on above: Result Comment: BLDo HEMOGLOBIN A1C REFERENCE RANGESBLDo Suggested Diagnosis HbA1c(%) HbA1C (mmol/mol Diabetic >/=6.5 >/=48 Prediabetes 5.7 - 6.4 39 - 47 Normal <5.7 <39 Performed By: #### 2 05393 #### [facility],[address] [place] [address] 31971 HbA1c (Bld) [Mass fraction] 6.2 % Normal 0.0 - 6.5 [facility] Comment on above: Performed By: #### 2 59851 #### [facility],[address] [place] [address] 06193 LIPID PROFILEon 10-15-2024 Cholesterol [Mass/Vol] 88 mg/dL Normal 0 - 240 [facility] Comment on above: Performed By: #### 2 31802 #### [facility],[address] [place] [address] 82636 Cholesterol in HDL [Mass/Vol] 66 mg/dL High 40 - 60 [facility] Comment on above: Performed By: #### 2 81319 #### [facility],[address] [place] [address] 12911 Cholesterol in LDL [Mass/Vol] 8 mg/dL Normal 0 - 129 [facility] Comment on above: Performed By: #### 2 65522 #### [facility],[address] [place] [address] 80900 Cholesterol.total/C holesterol in HDL [Mass ratio] 1.3 {ratio} Normal 0.0 - 5.0 [facility] Comment on above: Performed By: #### 2 57480 #### [facility],[address] [place] [address] 68340 Lipid 1996 panel Normal [facility] Comment on above: Result Comment: LIPI D PROFILE Performed By: #### 2 97914 #### [facility],[address] [place] [address] 86157 Triglyceride [Mass/Vol] 72 mg/dL Normal 0 - 150 [facility] Comment on above: Performed By: #### 2 69522 #### [facility],[address] [place] [address] 70906 HALOPERIDOL [CCL]on 10-14-19 25 Haloperidol <0.6 Low 5.0-20.0 [facility] Comment on above: Result Comment: INTE RPRETIVE INFORMATION: Haloperidol Level Therapeutic Range: 5.0-20.0 ng/mL Toxic: Greater than 50 ng/mL The therapeutic range is based on serum pre-dose (trough) draw at steady-state concentration. Adverse effects may include drowsiness, blurred vision, tardive dyskinesia, tachycardia, hypotension and muscular rigidity. This test was developed and its performance characteristics determined by [facility]. It has not been cleared or approved by the [place] Food and Drug Administration. This test was performed in a CLIA certified laboratory and is intended for clinical purposes. Performed By: [facility] [address] [place] [address] Team Facilitator: Willis Christine MD, PhD CLIA Number: [id number] [place] [address] Jaison Lema III, M.D. [id number] Performed By: #### 2 39265 #### [facility],[address] [place] [address] Basic metabolic 2000 panelon 10-12-2024 Anion gap [Moles/Vol] 7 mmol/L Normal 5-16 [facility] Comment on above: Order Comment: Speci men Type: BLOOD SPECIMEN Ordering Facility: [facility] Address: [address] [place] [address] Performed By: #### 4 5066-8 #### [facility] CLIA [id number] [address] [place] [address] [place] Calcium [Mass/Vol] 9.4 mg/dL Normal 8.5-10.5 [facility] Comment on above: Order Comment: Speci men Type: BLOOD SPECIMEN Ordering Facility: [facility] Address: [address] [place] [address] Performed By: #### 4 5066-8 #### [facility] CLIA [id number] [address] [place] [address] [place] Chloride [Moles/Vol] 103 mmol/L Normal 98-107 [facility] Comment on above: Order Comment: Florii men Type: BLOOD SPECIMEN Ordering Facility: [facility] Address: [address] [place] [address] Performed By: #### 4 5066-8 #### [facility] CLIA [id number] [address] [place] [address] [place] CO2 [Moles/Vol] 24 mmol/L Normal 21-32 [facility] Comment on above: Order Comment: Speci men Type: BLOOD SPECIMEN Ordering Facility: [facility] Address: [address] [place] [address] Performed By: #### 4 5066-8 #### [facility] CLIA [id number] [address] [place] [address] [place] Creatinine [Mass/Vol] 0.83 mg/dL Normal 0.51-0.95 [facility] Comment on above: Order Comment: Speci men Type: BLOOD SPECIMEN Ordering Facility: [facility] Address: [address] [place] [address] Result Comment: Marissa ents receiving either N-Acetylcysteine (NAC) or Metamizole prior to venipuncture, may have falsely depressed results. Performed By: #### 4 5066-8 #### [facility] CLIA [id number] [address] [place] [address] [place] Creatinine and Glomerular filtration rate.predicted panel (S/P/Bld) 91 mL/min/1.73m??? Normal >=60 [facility] Comment on above: Order Comment: Speci men Type: BLOOD SPECIMEN Ordering Facility: [facility] Address: [address] [place] [address] Result Comment: Zeny mated Glomerular Filtration Rate [...] GFR. Performed By: #### 4 5066-8 #### [facility] CLIA [id number] [address] [place], [place] [address] [place] Glucose [Mass/Vol] 99 mg/dL Normal 70-100 [facility] Comment on above: Order Comment: Dora finch Type: BLOOD SPECIMEN Ordering Facility: [facility] Address: [address] [place], [place] [address] Result Comment: The [place] Diabetes Association (ADA) provides guidance for cutoff [...] Standards of Medical Care in Diabetes 2016, [place] [employer]. Diabetes Care. 2016.39(Suppl 1). Results may be falsely elevated after the administration of Sulfapyridine. Results may be falsely depressed after the administration of Sulfasalazine. Performed By: #### 4 5066-8 #### [facility] CLIA [id number] [address] [place] [address] [place] Potassium [Moles/Vol] 3.6 mmol/L Normal 3.5-5.1 [facility] Comment on above: Order Comment: Dora finch Type: BLOOD SPECIMEN Ordering Facility: [facility] Address: [address] [place] [address] Performed By: #### 4 5066-8 #### [facility] CLIA [id number] [address] [place] [address] [place] Sodium [Moles/Vol] 134 mmol/L Low 136-145 [facility] Comment on above: Order Comment: Dora finch Type: BLOOD SPECIMEN Ordering Facility: [facility] Address: [address] [place] [address] Performed By: #### 4 5066-8 #### [facility] CLIA [id number] [address] [place] [address] [place] Urea nitrogen [Mass/Vol] 7 mg/dL Normal 01-19 [facility] Comment on above: Order Comment: Speci men Type: BLOOD SPECIMEN Ordering Facility: [facility] Address: [address] [place] [address] Performed By: #### 4 5066-8 #### [facility] CLIA [id number] [address] [place] [address] [place] CBC W Auto Differential pane l (Bld)on 10-12-2024 Basophils (Bld) [#/Vol] 0.05 10*3/uL Normal <0.11 [facility] Comment on above: Order Comment: Speci men Type: BLOOD SPECIMEN Ordering Facility: [facility] Address: [address] [place] [address] Performed By: #### 4 5066-8 #### [facility] CLIA [id number] [address] [place] [address] [place] Basophils/100 WBC (Bld) 0.7 % Normal [facility] Comment on above: Order Comment: Speci men Type: BLOOD SPECIMEN Ordering Facility: [facility] Address: [address] [place] [address] Performed By: #### 4 5066-8 #### [facility] CLIA [id number] [address] [place] [address] [place] Differential cell count method Nom (Bld) Auto Normal [facility] Comment on above: Order Comment: Speci men Type: BLOOD SPECIMEN Ordering Facility: [facility] Address: [address] [place] [address] Performed By: #### 4 5066-8 #### [facility] CLIA [id number] [address] [place] [address] [place] Eosinophils (Bld) [#/Vol] 0.14 10*3/uL Normal <0.46 [facility] Comment on above: Order Comment: Speci men Type: BLOOD SPECIMEN Ordering Facility: [facility] Address: [address] [place] [address] Performed By: #### 4 5066-8 #### [facility] CLIA [id number] [address] [place] [address] [place] Eosinophils/100 WBC (Bld) 1.9 % Normal [facility] Comment on above: Order Comment: Speci men Type: BLOOD SPECIMEN Ordering Facility: [facility] Address: [address] [place] [address] Performed By: #### 4 5066-8 #### [facility] CLIA [id number] [address] [place] [address] [place] Erythrocyte distribution width (RBC) [Ratio] 14.6 % Normal 11.5-15.0 [facility] Comment on above: Order Comment: Speci men Type: BLOOD SPECIMEN Ordering Facility: [facility] Address: [address] [place] [address] Performed By: #### 4 5066-8 #### [facility] CLIA [id number] [address] [place] [place] [address] [place] Hematocrit (Bld) [Volume fraction] 33.2 % Low 36.0-46.0 [facility] Comment on above: Order Comment: Speci men Type: BLOOD SPECIMEN Ordering Facility: [facility] Address: [address] [place] [address] Performed By: #### 4 5066-8 #### [facility] CLIA [id number] [address] [place] [address] [place] Hemoglobin (Bld) [Mass/Vol] 10.1 g/dL Low 11.5-15.5 [facility] Comment on above: Order Comment: Speci men Type: BLOOD SPECIMEN Ordering Facility: [facility] Address: [address] [place] [address] Performed By: #### 4 5066-8 #### [facility] CLIA [id number] [address] [place] [address] [place] Immature granulocytes (Bld) [#/Vol] 0.04 10*3/uL Normal <0.10 [facility] Comment on above: Order Comment: Speci men Type: BLOOD SPECIMEN Ordering Facility: [facility] Address: [facility] [place] [address] Performed By: #### 4 5066-8 #### [facility] CLIA [id number] [address] [place] [address] [place] Immature granulocytes/100 WBC (Bld) 0.5 % Normal [facility] Comment on above: Order Comment: Speci men Type: BLOOD SPECIMEN Ordering Facility: [facility] Address: [address] [place] [address] Performed By: #### 4 5066-8 #### [facility] CLIA [id number] [address] [place] [address] [place] Lymphocytes (Bld) [#/Vol] 2.84 10*3/uL Normal 1.00-4.00 [facility] Comment on above: Order Comment: Speci men Type: BLOOD SPECIMEN Ordering Facility: [facility] Address: [address] [place] [address] Performed By: #### 4 5066-8 #### [facility] CLIA [id number] [address] [place] [address] [place] Lymphocytes/100 WBC (Bld) 38.4 % Normal [facility] Comment on above: Order Comment: Speci men Type: BLOOD SPECIMEN Ordering Facility: [facility] Address: [address] [place] [address] Performed By: #### 4 5066-8 #### [facility] CLIA [id number] [address] [place] [address] [place] MCH (RBC) [Entitic mass] 24.1 pg Low 26.0-34.0 [facility] Comment on above: Order Comment: Speci men Type: BLOOD SPECIMEN Ordering Facility: [facility] Address: [address] [place] [address] Performed By: #### 4 5066-8 #### [facility] CLIA [id number] [address] [place] [address] [place] MCHC (RBC) [Mass/Vol] 30.4 g/dL Low 30.5-36.0 [facility] Comment on above: Order Comment: Speci men Type: BLOOD SPECIMEN Ordering Facility: [facility] Address: [address] [place] [address] Performed By: #### 4 5066-8 #### [facility] CLIA [id number] [address] [place] [address] [place] MCV (RBC) [Entitic vol] 79.2 fL Low 80.0-100.0 [facility] Comment on above: Order Comment: Speci men Type: BLOOD SPECIMEN Ordering Facility: [facility] Address: [address] [place] [address] Performed By: #### 4 5066-8 #### [facility] CLIA [id number] [address] [place] [address] [place] Monocytes (Bld) [#/Vol] 0.68 10*3/uL Normal <0.87 [facility] Comment on above: Order Comment: Speci men Type: BLOOD SPECIMEN Ordering Facility: [facility] Address: [address] [place] [address] Performed By: #### 4 5066-8 #### [facility] CLIA [id number] [address] [place] [address] [place] Monocytes/100 WBC (Bld) 9.2 % Normal [facility] Comment on above: Order Comment: Speci men Type: BLOOD SPECIMEN Ordering Facility: [facility] Address: [address] [place] [address] Performed By: #### 4 5066-8 #### [facility] CLIA [id number] [address] [place] [address] [place] Neutrophils (Bld) [#/Vol] 3.65 10*3/uL Normal 1.45-7.50 [facility] Comment on above: Order Comment: Speci men Type: BLOOD SPECIMEN Ordering Facility: [facility] Address: [address] [place] [address] Performed By: #### 4 5066-8 #### [facility] CLIA [id number] [address] [place] [address] [place] Neutrophils/100 WBC (Bld) 49.3 % Normal [facility] Comment on above: Order Comment: Speci men Type: BLOOD SPECIMEN Ordering Facility: [facility] Address: [address] [place] [address] Performed By: #### 4 5066-8 #### [facility] CLIA [id number] [address] [place] [address] [place] Nucleated RBC (Bld) [#/Vol] 10*3/uL Normal <0.01 [facility] Comment on above: Order Comment: Speci men Type: BLOOD SPECIMEN Ordering Facility: [facility] Address: [address] [place] [address] Performed By: #### 4 5066-8 #### [facility] CLIA [id number] [address] [place] [address] [place] Nucleated RBC/100 WBC (Bld) [Ratio] 0.0 /100 WBC Normal [facility] Comment on above: Order Comment: Speci men Type: BLOOD SPECIMEN Ordering Facility: [facility] Address: [address] [place] [address] Performed By: #### 4 5066-8 #### [facility] CLIA [id number] [address] [place] [address] [place] Platelet mean volume (Bld) [Entitic vol] 8.9 fL Low 9.0-12.7 [facility] Comment on above: Order Comment: Speci men Type: BLOOD SPECIMEN Ordering Facility: [facility] Address: [address] [place] [address] Performed By: #### 4 5066-8 #### [facility] CLIA [id number] [address] [place] [address] [place] Platelets (Bld) [#/Vol] 344 10*3/uL Normal 150-400 [facility] Comment on above: Order Comment: Speci men Type: BLOOD SPECIMEN Ordering Facility: [facility] Address: [address] [place] [address] Performed By: #### 4 5066-8 #### [facility] CLIA [id number] [address] [place], [place] [address] [facility] RBC (Bld) [#/Vol] 4.19 10*6/uL Normal 3.90-5.20 [facility] Comment on above: Order Comment: Speci men Type: BLOOD SPECIMEN Ordering Facility: [facility] Address: [address] [place], [place] [address] Performed By: #### 4 5066-8 #### [facility] CLIA [id number] [address] [place], [place] [address] [facility] WBC (Bld) [#/Vol] 7.40 10*3/uL Normal 3.70-11.00 [facility] Comment on above: Order Comment: Speci men Type: BLOOD SPECIMEN Ordering Facility: [facility] Address: [address] [place], [place] [address] Performed By: #### 4 5066-8 #### [facility] CLIA [id number] [address] [place], [place] [address] [facility] CNDSon 10-12-2024 CNDS HNO ID: [id number] Author: DIANDRA MARTINEZ MD Service: General Internal [...] Lovenox, status post colostomy who presented to [facility] ED for accidental overdose. Patient resides in a nursing facility, approximately 1 month ago was taken to [facility] for colostomy after developing bowel obstruction. [...] PATIENT CONDITION AT DISCHARGE: Stable DISCHARGE DISPOSITION: Residential Facility Physical Exam: General: Not in acute [...] escitalopram oxa (more content not included)... Normal [facility] Basic metabolic 2000 panelon 10-11-2024 Anion gap [Moles/Vol] 10 mmol/L Normal 5-16 [facility] Comment on above: Order Comment: Specsammie finch Type: BLOOD SPECIMENOrdering Facility: [facility] Address: [address] [place] [address] Performed By: #### 2 4321-2 ####[facility] [id number] [place] [id number] [place] Calcium [Mass/Vol] 9.2 mg/dL Normal 8.5-10.5 [facility] Comment on above: Order Comment: Dora finch Type: BLOOD SPECIMENOrdering Facility: [facility] Address: [address] [place] [address] Performed By: #### 2 4321-2 ####[facility] [id number] [place] [id number] [place] Chloride [Moles/Vol] 101 mmol/L Normal 98-107 [facility] Comment on above: Order Comment: Speci men Type: BLOOD SPECIMENOrdering Facility: [facility] Address: [address] [place] [address] Performed By: #### 2 4321-2 ####[facility] [id number] [place] [address] [place] CO2 [Moles/Vol] 25 mmol/L Normal 21-32 [facility] Comment on above: Order Comment: Speci men Type: BLOOD SPECIMENOrdering Facility: [facility] Address: [address] [place] [address] Performed By: #### 2 4321-2 ####[facility] [id number] [place] [address] [place] Creatinine [Mass/Vol] 0.76 mg/dL Normal 0.51-0.95 [facility] Comment on above: Order Comment: Speci men Type: BLOOD SPECIMENOrdering Facility: [facility] Address: [address] [place] [address] Result Comment: Marissa ents receiving either N-Acetylcysteine (NAC) or Metamizole prior to venipuncture, may have falsely depressed results. Performed By: #### 2 4321-2 ####[facility] [id number] [address] [place] Creatinine and Glomerular filtration rate.predicted panel (S/P/Bld) 101 mL/min/1.73m??? Normal >=60 [facility] Comment on above: Order Comment: Speci men Type: BLOOD SPECIMENOrdering Facility: [facility] Address: [address] [place] [address] Result Comment: Zeny mated Glomerular Filtration Rate [...] actual GFR. Performed By: #### 2 4321-2 ####[facility] [id number] [place] [id number] [place] Glucose [Mass/Vol] 102 mg/dL High 70-100 [facility] Comment on above: Order Comment: Dora finch Type: BLOOD SPECIMENOrdering Facility: [facility] Address: [address] [place] [address] Result Comment: The [place] Diabetes Association (ADA) provides guidance for cutoff [...] Standards of Medical Care in Diabetes 2016, [place] [employer]. Diabetes Care. 2016.39(Suppl 1). Results may be falsely elevated after the administration of Sulfapyridine. Results may be falsely depressed after the administration of Sulfasalazine. Performed By: #### 2 4321-2 ####[facility] [id number] [place] [address] [place] Potassium [Moles/Vol] 3.0 mmol/L Low 3.5-5.1 [facility] Comment on above: Order Comment: Dora finch Type: BLOOD SPECIMENOrdering Facility: [facility] Address: [address] [place] [id number] Performed By: #### 2 4321-2 ####[facility] [id number] [place] [id number] [place] Sodium [Moles/Vol] 136 mmol/L Normal 136-145 [facility] Comment on above: Order Comment: Speci men Type: BLOOD SPECIMENOrdering Facility: [facility] Address: [address] [place] [address] Performed By: #### 2 4321-2 ####[facility]IA [id number] [place] [address] [place] Urea nitrogen [Mass/Vol] 6 mg/dL Low - [facility] Comment on above: Order Comment: Speci men Type: BLOOD SPECIMENOrdering Facility: [facility] Address: [address] [place] [address] Performed By: #### 2 4321-2 ####[facility] [id number] [address] [place] CBC W Auto Differential pane l (Bld)on 10-11-2024 Basophils (Bld) [#/Vol] 0.03 10*3/uL Normal <0.11 [facility] Comment on above: Order Comment: Speci men Type: BLOOD SPECIMENOrdering Facility: [facility] Address: [address] [place] [address] Performed By: #### 5 7021-8 ####[facility] [id number] [address] [place] Basophils/100 WBC (Bld) 0.5 % Normal [facility] Comment on above: Order Comment: Speci men Type: BLOOD SPECIMENOrdering Facility: [facility] Address: [address] [place] [address] Performed By: #### 5 7021-8 ####[facility] [id number] [address] [facility] Differential cell count method Nom (Bld) Auto Normal [facility] Comment on above: Order Comment: Speci men Type: BLOOD SPECIMENOrdering Facility: [facility] Address: [address] [place] [address] Performed By: #### 5 7021-8 ####[facility]IA [id number] [place] [address] [place] Eosinophils (Bld) [#/Vol] 0.09 10*3/uL Normal <0.46 [facility] Comment on above: Order Comment: Speci men Type: BLOOD SPECIMENOrdering Facility: [facility] Address: [address] [place] [address] Performed By: #### 5 7021-8 ####[facility]ORY[facility]IA [id number] [address] [place] Eosinophils/100 WBC (Bld) 1.5 % Normal [facility] Comment on above: Order Comment: Speci men Type: BLOOD SPECIMENOrdering Facility: [facility] Address: [address] [place] [address] Performed By: #### 5 7021-8 ####[facility]IA [id number] [address] [place] Erythrocyte distribution width (RBC) [Ratio] 14.8 % Normal 11.5-15.0 [facility] Comment on above: Order Comment: Speci men Type: BLOOD SPECIMENOrdering Facility: [facility] Address: [address] [place] [address] Performed By: #### 5 7021-8 ####[facility]ORY[facility]IA [id number] [address] [place] Hematocrit (Bld) [Volume fraction] 29.6 % Low 36.0-46.0 [facility] Comment on above: Order Comment: Speci men Type: BLOOD SPECIMENOrdering Facility: [facility] Address: [address] [place] [address] Performed By: #### 5 7021-8 ####[facility]ORYCLIA [id number] [place] [address] [place] Hemoglobin (Bld) [Mass/Vol] 9.2 g/dL Low 11.5-15.5 [facility] Comment on above: Order Comment: Speci men Type: BLOOD SPECIMENOrdering Facility: [facility] Address: [address] [place] [address] Performed By: #### 5 7021-8 ####[facility]ORYCLIA [id number] [place] [address] [place] Immature granulocytes (Bld) [#/Vol] 0.03 10*3/uL Normal <0.10 [facility] Comment on above: Order Comment: Speci men Type: BLOOD SPECIMENOrdering Facility: [facility] Address: [address] [place] [address] Performed By: #### 5 7021-8 ####[facility]ORYCLIA [id number] [place] [address] [place] Immature granulocytes/100 WBC (Bld) 0.5 % Normal [facility] Comment on above: Order Comment: Speci men Type: BLOOD SPECIMENOrdering Facility: [facility] Address: [address] [place] [address] Performed By: #### 5 7021-8 ####[facility] LABORATORYCLIA [id number] [place] [address] [place] Lymphocytes (Bld) [#/Vol] 1.59 10*3/uL Normal 1.00-4.00 [facility] Comment on above: Order Comment: Speci men Type: BLOOD SPECIMENOrdering Facility: [facility] Address: [address] [place] [address] Performed By: #### 5 7021-8 ####[facility] LABORATORYCLIA [id number] [place] [address] [place] Lymphocytes/100 WBC (Bld) 27.2 % Normal [facility] Comment on above: Order Comment: Speci men Type: BLOOD SPECIMENOrdering Facility: [facility] Address: [address] [place] [address] Performed By: #### 5 7021-8 ####[facility] LABORATORYCLIA [id number] [place] [address] [place] MCH (RBC) [Entitic mass] 24.2 pg Low 26.0-34.0 [facility] Comment on above: Order Comment: Speci men Type: BLOOD SPECIMENOrdering Facility: [facility] Address: [address] [place] [address] Performed By: #### 5 7021-8 ####[facility]ORATORYCLIA [id number] [place] [id number] [place] MCHC (RBC) [Mass/Vol] 31.1 g/dL Normal 30.5-36.0 [facility] Comment on above: Order Comment: Speci men Type: BLOOD SPECIMENOrdering Facility: [facility] Address: [address] [place] [address] Performed By: #### 5 7021-8 ####[facility]ORATORYCLIA [id number] [place] [address] [place] MCV (RBC) [Entitic vol] 77.9 fL Low 80.0-100.0 [facility] Comment on above: Order Comment: Speci men Type: BLOOD SPECIMENOrdering Facility: [facility] Address: [address] [place] [address] Performed By: #### 5 7021-8 ####[facility]ATORYCLIA [id number] [place] [address] [place] Monocytes (Bld) [#/Vol] 0.62 10*3/uL Normal <0.87 [facility] Comment on above: Order Comment: Speci men Type: BLOOD SPECIMENOrdering Facility: [facility] Address: [address] [place] [address] Performed By: #### 5 7021-8 ####[facility]ORATORYCLIA [id number] [address] [place] Monocytes/100 WBC (Bld) 10.6 % Normal [facility] Comment on above: Order Comment: Speci men Type: BLOOD SPECIMENOrdering Facility: [facility] Address: [address] [place] [address] Performed By: #### 5 7021-8 ####[facility]ATORYCLIA [id number] [place] [address] [place] Neutrophils (Bld) [#/Vol] 3.48 10*3/uL Normal 1.45-7.50 [facility] Comment on above: Order Comment: Speci men Type: BLOOD SPECIMENOrdering Facility: [facility] Address: [facility] [place] [address] Performed By: #### 5 7021-8 ####[facility]ORATORYCLIA [id number] [place] [id number] [place] Neutrophils/100 WBC (Bld) 59.7 % Normal [facility] Comment on above: Order Comment: Speci men Type: BLOOD SPECIMENOrdering Facility: [facility] Address: [address] [place] [address] Performed By: #### 5 7021-8 ####[facility]ATORYCLIA [id number] [place] [address] [place] Nucleated RBC (Bld) [#/Vol] 10*3/uL Normal <0.01 [facility] Comment on above: Order Comment: Speci men Type: BLOOD SPECIMENOrdering Facility: [facility] Address: [address] [place] [address] Performed By: #### 5 7021-8 ####[facility]ATORYCLIA [id number] [place] [address] [place] Nucleated RBC/100 WBC (Bld) [Ratio] 0.0 /100 WBC Normal [facility] Comment on above: Order Comment: Speci men Type: BLOOD SPECIMENOrdering Facility: [facility] Address: [address] [place] [address] Performed By: #### 5 7021-8 ####[facility]ORATORYCLIA [id number] [place] [address] [place] Platelet mean volume (Bld) [Entitic vol] 9.3 fL Normal 9.0-12.7 [facility] Comment on above: Order Comment: Speci men Type: BLOOD SPECIMENOrdering Facility: [facility] Address: [address] [place] [address] Performed By: #### 5 7021-8 ####[facility]ORATORYCLIA [id number] [place] [address] [facility] [place] Platelets (Bld) [#/Vol] 362 10*3/uL Normal 150-400 [facility] Comment on above: Order Comment: Dora ifnch Type: BLOOD SPECIMENOrdering Facility: [facility] Address: [address] [place] [address] Performed By: #### 5 7021-8 ####[facility]ATORYCLIA [id number] [place] [address] [facility] [place] RBC (Bld) [#/Vol] 3.80 10*6/uL Low 3.90-5.20 [facility] Comment on above: Order Comment: Florii men Type: BLOOD SPECIMENOrdering Facility: [facility] Address: [address] [place] [address] Performed By: #### 5 7021-8 ####[facility]ORATORYCLIA [id number] [address] WBC (Bld) [#/Vol] 5.84 10*3/uL Normal 3.70-11.00 [facility] Comment on above: Order Comment: Dora finch Type: BLOOD SPECIMENOrdering Facility: [facility] Address: [address] [place] [address] Performed By: #### 5 7021-8 ####[facility]ORATORYCLIA [id number] [address] ALLIED HEALTHon 10-10-2024 ALLIED HEALTH HNO ID: [id number] Author: SANG CASE, NATHANAEL Service: Wound/Ostomy Author Type: Registered Nurse Type: Allied Health Filed: 10/10/2024 12:07 Note Text: Summary: Wound Care Consult Wound Care Nurse Consult Patient: Daly Evans : 1985 Admit Date: 10/09/2024 REASON FOR CONSULT: bilateral toe wounds ASSESSMENT: Wound 10/09/241810 Toe D5, fifth Anterior;Left (Active) Properties Placement Date 10/09/24 Placement Time 181 Location Toe D5, fifth Wound Location Orientation [...] Time 1812 Location Heel Wound Location Orientation Right Assessments [...] Black Pt states she sees vascular at [facility] and will go there on the for another follow up. States she is using betadine for the toes/heel. RECOMMENDATIONS: bar pilot Communication Order; Dressing recommendations require a provider's order, please obtain and place as a "Dressing Care" order. Right and left toe and Left Heel eschar. [place] with betadine daily. If you notice drainage anywhere, apply silver alginate and gauze-change daily. Maintain pressure prevention interventions-offload heels with pillows or Truevue boots.. Re-consult Wound Care if skin or wounds deteriorate further or if new problems arise. [facility] ALLIED HEALTH HNO ID: [id number] Author: SANG CASE, NATHANAEL Service: Wound/Ostomy Author [...] sting skin prep pad. Apply Augustine paste #45648 into any creases at 3 and 9 o'clock. Apply Augustine #8815 adapt ring around the stoma. Apply pouching system: Pouching System: There are 2 pouches for the patient to try 1) #77838 Sensura Cory 2 piece Flex High Output ostomy pouch with soft outlet-included a clip in case the drainage is too thick for the outlet. In this case, just cut off the spout and use a clip to secure/empty. #98603 Convex light ostomy 2 piece flex with belt tabs 2) can also try #00149 JERONIMO Ultramax cut to fit large deep convex pouch Wear Time Goal: 3-4 days If additional ostomy supplies are needed, please call [employer] ([phone]) for above mentioned supplies. If supplies are unavailable in [employer], please secure chat "[facility] W[facility] Nurses" or call extension [phone] to request more supplies. Normal [facility] Basic metabolic 2000 panelon 10-10-2024 Anion gap [Moles/Vol] 9 mmol/L Normal - [facility] Comment on above: Order Comment: Speci men Type: BLOOD SPECIMEN [facility] Address: [address] [place] [address] Performed By: #### 2 4321-2 #### [facility] CLIA [id number] [address] [place], [place] [address] [place] Calcium [Mass/Vol] 9.2 mg/dL Normal 8.5-10.5 [facility] Comment on above: Order Comment: Speci men Type: BLOOD SPECIMEN [facility]ing [facility]: [facility] Address: [address] [place] [address] Performed By: #### 2 4321-2 #### [facility] CLIA [id number] [address] [place] [address] [place] Chloride [Moles/Vol] 99 mmol/L Normal 98-107 [facility] Comment on above: Order Comment: Speci men Type: BLOOD SPECIMEN [facility]ing [facility]: [facility] Address: [address] [place] [address] Performed By: #### 2 4321-2 #### [facility] CLIA [id number] [address] [place] [address] [place] CO2 [Moles/Vol] 22 mmol/L Normal 21-32 [facility] Comment on above: Order Comment: Speci men Type: BLOOD SPECIMEN [facility]ing [facility]: [facility] Address: [address] [place] [address] Performed By: #### 2 4321-2 #### [facility] CLIA [id number] [address] [place] [address] [place] Creatinine [Mass/Vol] 0.76 mg/dL Normal 0.51-0.95 [facility] Comment on above: Order Comment: Speci men Type: BLOOD SPECIMEN [facility]ing [facility]: [facility] Address: [address] [place] [address] Result Comment: Marissa ents receiving either N-Acetylcysteine (NAC) or Metamizole prior to venipuncture, may have falsely depressed results. Performed By: #### 2 4321-2 #### [facility] CLIA [id number] [address] [place] [address] [place] Creatinine and Glomerular filtration rate.predicted panel (S/P/Bld) 101 mL/min/1.73m??? Normal >=60 [facility] Comment on above: Order Comment: Dora finch Type: BLOOD SPECIMEN [facility]: [facility] Address: [address] [place] [address] Result Comment: Zeny mated Glomerular Filtration Rate [...] GFR. Performed By: #### 2 4321-2 #### [facility] CLIA [id number] [address] [place] [address] [place] Glucose [Mass/Vol] 88 mg/dL Normal 70-100 [facility] Comment on above: Order Comment: Dora finch Type: BLOOD SPECIMEN [facility]: [facility] Address: [address] [place] [address] Result Comment: The [place] Diabetes [employer] (ADA) provides guidance for cutoff [...] Standards of Medical Care in Diabetes 2016, [place]. Diabetes Care. 2016.39(Suppl 1). Results may be falsely elevated after the administration of Sulfapyridine. Results may be falsely depressed after the administration of Sulfasalazine. Performed By: #### 2 4321-2 #### [facility] CLIA [id number] [address] [place], [place] [address] [place] Potassium [Moles/Vol] 3.4 mmol/L Low 3.5-5.1 [facility] Comment on above: Order Comment: Speci men Type: BLOOD SPECIMEN [facility]: [facility] Address: [address] [place] [address] Performed By: #### 2 4321-2 #### [facility] CLIA [id number] [address] [place] [address] [place] Sodium [Moles/Vol] 130 mmol/L Low 136-145 [facility] Comment on above: Order Comment: Speci men Type: BLOOD SPECIMEN [facility]: [facility] Address: [address] [place] [address] Performed By: #### 2 4321-2 #### [facility] CLIA [id number] [address] [place] [address] [place] Urea nitrogen [Mass/Vol] 9 mg/dL Normal 7- [facility] Comment on above: Order Comment: Speci men Type: BLOOD SPECIMEN [facility]: [facility] Address: [address] [place] [address] Performed By: #### 2 4321-2 #### [facility] CLIA [id number] [address] [place] [address] [place] CBC W Auto Differential pane l (Bld)on 10-10-2024 Basophils (Bld) [#/Vol] 0.05 10*3/uL Normal <0.11 [facility] Comment on above: Order Comment: Speci men Type: BLOOD SPECIMEN [facility]: [facility] Address: [address] [place] [address] Performed By: #### 5 7021-8 #### [facility] CLIA [id number] [address] [place] [address] [place] Basophils/100 WBC (Bld) 0.7 % Normal [facility] Comment on above: Order Comment: Speci men Type: BLOOD SPECIMEN [facility]: [facility] Address: [address] [place] [address] Performed By: #### 5 7021-8 #### [facility] CLIA [id number] [address] [place] [address] [place] Differential cell count method Nom (Bld) Auto Normal [facility] Comment on above: Order Comment: Speci men Type: BLOOD SPECIMEN [facility]: [facility] Address: [address] [place] [address] Performed By: #### 5 7021-8 #### [facility] CLIA [id number] [address] [place] [address] [place] Eosinophils (Bld) [#/Vol] 0.07 10*3/uL Normal <0.46 [facility] Comment on above: Order Comment: Speci men Type: BLOOD SPECIMEN [facility]: [facility] Address: [address] [place] [address] Performed By: #### 5 7021-8 #### [facility] CLIA [id number] [address] [place] [address] [place] Eosinophils/100 WBC (Bld) 1.0 % Normal [facility] Comment on above: Order Comment: Speci men Type: BLOOD SPECIMEN [facility]: [facility] Address: [address] [place] [address] Performed By: #### 5 7021-8 #### [facility] CLIA [id number] [address] [place] [address] [place] Erythrocyte distribution width (RBC) [Ratio] 14.9 % Normal 11.5-15.0 [facility] Comment on above: Order Comment: Speci men Type: BLOOD SPECIMEN [facility]: [facility] Address: [address] [place] [address] Performed By: #### 5 7021-8 #### [facility] CLIA [id number] [address] [place] [address] [place] Hematocrit (Bld) [Volume fraction] 33.3 % Low 36.0-46.0 [facility] Comment on above: Order Comment: Speci men Type: BLOOD SPECIMEN [facility]: [facility] Address: [address] [place] [address] Performed By: #### 5 7021-8 #### [facility] CLIA [id number] [address] [place] [address] [place] Hemoglobin (Bld) [Mass/Vol] 10.4 g/dL Low 11.5-15.5 [facility] Comment on above: Order Comment: Speci men Type: BLOOD SPECIMEN [facility]: [facility] Address: [address] [place] [address] Performed By: #### 5 7021-8 #### [facility] CLIA [id number] [address] [place] [address] [place] Immature granulocytes (Bld) [#/Vol] 10*3/uL Normal <0.10 [facility] Comment on above: Order Comment: Speci men Type: BLOOD SPECIMEN [facility]: [facility] Address: [address] [place] [address] Performed By: #### 5 7021-8 #### [facility] CLIA [id number] [address] [place] [address] [place] Immature granulocytes/100 WBC (Bld) 0.3 % Normal [facility] Comment on above: Order Comment: Speci men Type: BLOOD SPECIMEN [facility]: [facility] Address: [address] [place] [address] Performed By: #### 5 7021-8 #### [facility] CLIA [id number] [address] [place] [address] [place] Lymphocytes (Bld) [#/Vol] 2.17 10*3/uL Normal 1.00-4.00 [facility] Comment on above: Order Comment: Speci men Type: BLOOD SPECIMEN [facility]: [facility] Address: [address] [place] [address] Performed By: #### 5 7021-8 #### [facility] CLIA [id number] [address] [place] [address] [place] Lymphocytes/100 WBC (Bld) 30.6 % Normal [facility] Comment on above: Order Comment: Speci men Type: BLOOD SPECIMEN [facility]ing [facility]: [facility] Address: [address] [place] [address] Performed By: #### 5 7021-8 #### [facility] CLIA [id number] [address] [place] [place] [address] OF [facility] MCH (RBC) [Entitic mass] 24.3 pg Low 26.0-34.0 [facility] Comment on above: Order Comment: Speci men Type: BLOOD SPECIMEN [facility]ing [facility]: [facility] Address: [address] [place] [address] Performed By: #### 5 7021-8 #### [facility] CLIA [id number] [address] [place] [address] [place] MCHC (RBC) [Mass/Vol] 31.2 g/dL Normal 30.5-36.0 [facility] Comment on above: Order Comment: Speci men Type: BLOOD SPECIMEN [facility]: [facility] Address: [address] [place] [address] Performed By: #### 5 7021-8 #### [facility] CLIA [id number] [address] [place] [address] [place] MCV (RBC) [Entitic vol] 77.8 fL Low 80.0-100.0 [facility] Comment on above: Order Comment: Speci men Type: BLOOD SPECIMEN [facility]: [facility] Address: [address] [place] [address] Performed By: #### 5 7021-8 #### [facility] CLIA [id number] [address] [place] [address] [place] Monocytes (Bld) [#/Vol] 0.77 10*3/uL Normal <0.87 [facility] Comment on above: Order Comment: Speci men Type: BLOOD SPECIMEN [facility]ing [facility]: [facility] Address: [address] [place] [address] Performed By: #### 5 7021-8 #### [facility] CLIA [id number] [address] [place] [address] [place] Monocytes/100 WBC (Bld) 10.9 % Normal [facility] Comment on above: Order Comment: Speci men Type: BLOOD SPECIMEN [facility]ing [facility]: [facility] Address: [address] [place] [address] Performed By: #### 5 7021-8 #### [facility] CLIA [id number] [address] [place] [address] [place] Neutrophils (Bld) [#/Vol] 4.01 10*3/uL Normal 1.45-7.50 [facility] Comment on above: Order Comment: Speci men Type: BLOOD SPECIMEN [facility]ing [facility]: [facility] Address: [address] [place] [address] Performed By: #### 5 7021-8 #### [facility] CLIA [id number] [address] [place] [address] [place] Neutrophils/100 WBC (Bld) 56.5 % Normal [facility] Comment on above: Order Comment: Speci men Type: BLOOD SPECIMEN [facility]ing [facility]: [facility] Address: [address] [place] [address] Performed By: #### 5 7021-8 #### [facility] CLIA [id number] [address] [place] [address] [place] Nucleated RBC (Bld) [#/Vol] 10*3/uL Normal <0.01 [facility] Comment on above: Order Comment: Speci men Type: BLOOD SPECIMEN [facility]ing [facility]: [facility] Address: [address] [place] [address] Performed By: #### 5 7021-8 #### [facility] CLIA [id number] [address] [place] [address] [place] Nucleated RBC/100 WBC (Bld) [Ratio] 0.0 /100 WBC Normal [facility] Comment on above: Order Comment: Speci men Type: BLOOD SPECIMEN [facility]ing Facility: [facility] Address: [address] [place] [address] Performed By: #### 5 7021-8 #### [facility] CLIA [id number] [address] [place], [place] [address] [place] Platelet mean volume (Bld) [Entitic vol] 8.8 fL Low 9.0-12.7 [facility] Comment on above: Order Comment: Speci men Type: BLOOD SPECIMEN Ordering Facility: [facility] Address: [address] [place] [address] Performed By: #### 5 7021-8 #### [facility] CLIA [id number] [address] [place] [address] [place] Platelets (Bld) [#/Vol] 380 10*3/uL Normal 150-400 [facility] Comment on above: Order Comment: Speci men Type: BLOOD SPECIMEN [facility]ing [facility]: [facility] Address: [address] [place] [address] Performed By: #### 5 7021-8 #### [facility] CLIA [id number] [address] [place] [address] [place] RBC (Bld) [#/Vol] 4.28 10*6/uL Normal 3.90-5.20 [facility] Comment on above: Order Comment: Speci men Type: BLOOD SPECIMEN Ordering [facility]: [facility] Address: [address] [place] [address] Performed By: #### 5 7021-8 #### [facility] CLIA [id number] [address] [place] [address] [place] WBC (Bld) [#/Vol] 7.09 10*3/uL Normal 3.70-11.00 [facility] Comment on above: Order Comment: Speci men Type: BLOOD SPECIMEN [facility]ing Facility: [facility] Address: [address] [place] [address] Performed By: #### 5 7021-8 #### [facility] CLIA [id number] [address] [place], [place] [address] [facility] [place] CONSULTon 10-10-2024 CONSULT HNO ID: [id number] Author: RAKESH DAVIS APRN.[employer] Service: Gastroenterology Author Type: Nurse Practitioner Type: [...] decrease to once daily until seen by auctioneer art as an outpatient. Once her anticoagulation can [...] extremity lateral fasciotomy closures 08/23/2024, presented to [facility] 10/09 as a transfer from OSH for accidental overdose. Patient with noted recent [...] Narcan x2 doses. Patient was taken to [facility] ED and transferred to [facility] for GI evaluation. The patient is sitting [...] state on Loven (more content not included)... [facility] CONSULT PROGon 10-10-2024 CONSULT PROG HNO ID: [id number] Author: COSME SALAS RPh Service: Pharmacy Author Type: Pharmacist Type: [...] Please contact pharmacy if there are questions. Cosme Salas RPh [facility] NUTRITIONon 10-10-2024 NUTRITION HNO ID: [id number] Author: KENYA SANTAMARIA [address] Service: Nutrition Therapy [...] Weight Type: Current weight Estimated kilocalorie needs: [id number] Calorie Calculation Method: 20-25 kcals/kg Estimated protein needs (grams): 103-129 Grams protein determined by: 1.2 - 1.5 g/kg Diet Orders (From admission, onward) Start Ordered 10/10/24 1130 DIET LIQUID START NOW Question Answer Comment Liquid Diet CLEAR LIQUID Tray Precautions TRAY PRECAUTIONS NOT REQUIRED 10/10/24 1122 Anthropometrics: Height: 170.2 cm (5' 7") Weight: 86.8 kg (191 lb 5.8 oz) [...] October 10, 2024 TIME: 2:23 PM Normal [facility] APTTon 10-09-2024 aPTT Coag (Bld) [Time] 30.8 s Normal 25.4 - 38.4 [facility] Comment on above: Performed By: #### 2 01077 #### [facility],[address] [place] [address] CBC + DIFFon 10-09-2024 Baso # 0.06 x10EE3/UL Normal 0.00 - 0.10 [facility] Comment on above: Performed By: #### 2 76966 #### [facility],[address] [place], [place] [id number] Basophils/100 WBC (Bld) 0.4 % Normal 0.0 - 2.0 [facility] Comment on above: Performed By: #### 2 36696 #### [facility],[address] [place] [address] CBC + DIFF Normal [facility] Comment on above: Result Comment: CBC- COMPLETE BLOOD COUNT Performed By: #### 2 21224 #### [facility],[address] [place] [address] EO # 0.11 x10EE3/UL Normal 0.00 - 0.50 [facility] Comment on above: Performed By: #### 2 04642 #### [facility],[address] [place] [address] Eosinophils/100 WBC (Bld) 0.6 % Normal 0.0 - 7.0 [facility] Comment on above: Performed By: #### 2 32142 #### [facility],[address] [place] [address] Erythrocyte distribution width (RBC) [Ratio] 16.5 % High 12.0 - 15.6 [facility] Comment on above: Performed By: #### 2 26478 #### [facility],[address] [place] [address] Hematocrit (Bld) [Volume fraction] 37.0 % Normal 34.0 - 46.0 [facility] Comment on above: Performed By: #### 2 88629 #### [facility],[address] [place] [address] Hemoglobin (Bld) [Mass/Vol] 12.3 g/dL Normal 12.0 - 16.0 [facility] Comment on above: Performed By: #### 2 15753 #### [facility],[address] [place] [address] Lymph # 3.19 x10EE3/UL High 0.80 - 2.80 [facility] Comment on above: Performed By: #### 2 04257 #### [facility],[address] [place] [address] Lymphocytes/100 WBC (Bld) 18.0 % Low 20.0 - 45.0 [facility] Comment on above: Performed By: #### 2 96391 #### [facility],[address] [place] [address] MANUAL DIFF N/A Normal [facility] Comment on above: Performed By: #### 2 58944 #### [facility],[address] [place], [place] [address] MCH (RBC) [Entitic mass] 25 pg Low 27 - 33 [facility] Comment on above: Performed By: #### 2 66023 #### [facility],[address] [place] [address] MCHC 33 X10 3 Normal 32 - 36 [facility] Comment on above: Performed By: #### 2 98199 #### [facility],[address] [place], [place] [address] MCV (RBC) [Entitic vol] 76 fL Low 80 - 99 [facility] Comment on above: Performed By: #### 2 77933 #### [facility],[address] [place] [address] Mccreary # 1.03 x10EE3/UL High 0.20 - 1.00 [facility] Comment on above: Performed By: #### 2 72892 #### [facility],[address] [place] [address] MONOS % 5.8 % Normal 0.0 - 10.0 [facility] Comment on above: Performed By: #### 2 53794 #### [facility],[address] [place] [address] Morphology Stan (Bld) [Interp] N/A Normal [facility] Comment on above: Performed By: #### 2 18865 #### [facility],[address] [place] [address] Neut # 13.36 x10EE3/UL High 1.50 - 7.10 [facility] Comment on above: Performed By: #### 2 02775 #### [facility],[address] [place] [address] Neutrophils/100 WBC (Bld) 75.2 % Normal 46.0 - 76.0 [facility] Comment on above: Performed By: #### 2 64571 #### [facility],[address] [place] [address] PLATELET 657 x10EE3/UL High 150 - 450 [facility] Comment on above: Performed By: #### 2 14297 #### [facility],[address] [place] [address] Platelet mean volume (Bld) [Entitic vol] 7.7 fL Normal 6.6 - 10.5 [facility] Comment on above: Result Comment: AUTO MATED DIFFERENTIAL Performed By: #### 2 23119 #### [facility],[address] [place] [address] RBC 4.85 x 10EE6/UL Normal 4.10 - 5.30 [facility] Comment on above: Performed By: #### 2 94811 #### [facility],[address] [place] [address] 14085 WBC 17.8 x 10EE3/UL High 4.5 - 10.8 [facility] Comment on above: Performed By: #### 2 85761 #### [facility],[address] [place] [address] CMP with eGFRon 10-09-2024 AGE 39 years Normal [facility] Comment on above: Performed By: #### 2 39679 #### [facility],[address] [place] [address]013 Albumin [Mass/Vol] 3.1 g/dL Low 3.4 - 5.0 [facility] Comment on above: Performed By: #### 2 84469 #### [facility],[address] [place] [address] Albumin/Globulin [Mass ratio] 0.5 {ratio} Low 0.9 - 1.6 [facility] Comment on above: Performed By: #### 2 91159 #### [facility],[address] [place] [address] ALK PHOS 175 U/L High 46 - 116 [facility] Comment on above: Performed By: #### 2 02161 #### [facility],[address] [place] [address] 16216 ALT [Catalytic activity/Vol] 65 U/L High 16 - 63 [facility] Comment on above: Performed By: #### 2 23085 #### [facility],[address] [place] [address] 78848 Anion gap [Moles/Vol] 18 mmol/L Normal 10 - 20 [facility] Comment on above: Performed By: #### 2 55824 #### [facility],[address] [place] [address] 9[address]40 AST [Catalytic activity/Vol] 23 U/L Normal 13 - 39 [facility] Comment on above: Performed By: #### 2 23075 #### [facility],[address] [place] [address] 24487 B/C RATIO 12 ratio Normal 0 - 30 [facility] Comment on above: Performed By: #### 2 88879 #### [facility],[address] [place] [address] 76863 Bilirubin [Mass/Vol] 0.7 mg/dL Normal 0.2 - 1.0 [facility] Comment on above: Performed By: #### 2 32752 #### [facility],[address] [place] [address]326 Calcium [Mass/Vol] 9.7 mg/dL Normal 8.5 - 10.1 [facility] Comment on above: Performed By: #### 2 15034 #### [facility],[address] [place] [address] 11854 Chloride [Moles/Vol] 94 mmol/L Low 98 - 107 [facility] Comment on above: Performed By: #### 2 29443 #### [facility],[address] [place] [address] 36522 CMP with eGFR Normal [facility] Comment on above: Result Comment: COMP REHENSIVE METABOLIC PANEL Performed By: #### 2 45364 #### [facility],[address] [place] [address] 26923 CO2 [Moles/Vol] 25.4 mmol/L Normal 21.0 - 32.0 [facility] Comment on above: Performed By: #### 2 86324 #### [facility],[address] [place] [address] 68941 Creatinine [Mass/Vol] 1.72 mg/dL High 0.55 - 1.02 [facility] Comment on above: Performed By: #### 2 59789 #### [facility],[address] [place] [address] 62452 eGFR 33 ML/MINUTE Low 60 - 999 [facility] Comment on above: Performed By: #### 2 31782 #### [address] [address] eGFR(AA) 40 ML/MINUTE Low 60 - 999 [facility] Comment on above: Result Comment: ACCO RDING TO THE NATIONAL KIDNEY DISEASE EDUCATION PROGRAM(NKDE), A NORMAL eGFR IS A VALUE GREATER THAN OR EQUAL TO 60 ML/MIN/1.73 SQ METERS. CHRONIC KIDNEY DISEASE: <60mL/MIN/1.73 SQ METERS KIDNEY FAILURE: <15mL/MIN/1.73 SQ METERS THIS TEST SHOULD ONLY BE USED FOR PATIENTS 18 YEARS OF AGE AND OLDER. Performed By: #### 2 28220 #### [address] [address] Globulin (S) [Mass/Vol] 6.6 g/dL High 1.5 - 3.8 [facility] Comment on above: Performed By: #### 2 28707 #### [address] [address] Glucose [Mass/Vol] 245 mg/dL High 74 - 106 [facility] Comment on above: Performed By: #### 2 37129 #### [address] [address] Potassium [Moles/Vol] 2.3 mmol/L Critically low 3.5 - 5.1 [facility] Comment on above: Result Comment: { CA LLED TO NATHANAEL REDMOND BY [facility] @ 0937 { READ BACK BY NATHANAEL REDMOND RA 37 Performed By: #### 2 38991 #### [address] [address] Protein [Mass/Vol] 9.7 g/dL High 6.4 - 8.2 [facility] Comment on above: Performed By: #### 2 48732 #### [facility],[address] [place] [address] Sodium [Moles/Vol] 135 mmol/L Low 136 - 145 [facility] Comment on above: Performed By: #### 2 83428 #### [facility],[address] [place] [address] 14887 Urea nitrogen [Mass/Vol] 21 mg/dL High 7 - 18 [facility] Comment on above: Performed By: #### 2 15451 #### [facility],[address] [place] [address] CONSULT PROGon 10-09-2024 CONSULT PROG HNO ID: [id number] Author: MORENA ALLEN RPh Service: Pharmacy Author Type: Pharmacist Type: [...] Readings: Date: Ht: 10/09/2024 170.2 cm (5' 7") CrCl: 84.6 mL/min Temp (24hrs), Av.9 ?C [...] Value 10/09/2024 2040 11.1 08/22/20242024 12.7 Morena Allen RPh [facility] CT ABDOMEN/PELVIS WO 10-09 CT ABDOMEN/PELVIS [place] [address] Patient: DALY EVANS Phone#: : 1985 Age: 39 Gender: F Pt. Type: ER Account: [id number] Location: 052 Ordering: FARZANEH DELATORRE Exam Date: 10/09/2024/10:19 Family Phys: MAGGIE INDY Charge Code: 096981 Physician: [place] Order #: [id number] Dose#: 13.40 mGy PROCEDURE: CT ABDOMEN/PELVIS WITHOUT CONTRAST COMPARISON: [facility], CT, ABDOMEN/PELVIS W CON, 09/17/2024, 5:25. [...] 39 Gender: F Pt. Type: ER Account: [id number] Location: [facility] Ordering: FARZANEH DELATORRE Exam Date: 10/09/2024/10:19 Family Phys: MAGGIE PUTNAM Charge Code: 116369 Physician: [place] Order #: [id number] Dose#: 13.40 mGy 2. No appreciable acute intra-abdominal or pelvic abnormality within the limits of a noncontrast exam. Dictated by: Alicia Maya MD on 10/09/2024 at 10:49 Approved by: Alicia Maya MD on 10/09/2024 at 10:57 Normal [facility] Creatinine + eGFR Pnl SerPlB ldon 10-09-2024 Creatinine and Glomerular filtration rate.predicted panel (S/P/Bld) 74 mL/min/1.73m??? Normal >=60 [facility] Comment on above: Order Comment: Dora finch Type: BLOOD SPECIMEN Ordering Facility: [facility] Address: [address] [place] [address] Result Comment: Zeny mated Glomerular Filtration Rate [...] GFR. Performed By: #### 4 5066-8 #### [facility] CLIA [id number] [address] [place] [address] OF [facility] Creatinine and Glomerular fi ltration rate.predicted panel (S/P/Bld)on 10-09-2024 Creatinine [Mass/Vol] 0.99 mg/dL High 0.51-0.95 [facility] Comment on above: Order Comment: Dora finch Type: BLOOD SPECIMEN Ordering Facility: [facility] Address: [address] [place] [address] Result Comment: Marissa ents receiving either N-Acetylcysteine (NAC) or Metamizole prior to venipuncture, may have falsely depressed results. Performed By: #### 4 5066-8 #### [facility] CLIA [id number] [address] [place] [address] [place] ED MED ADMINISTRATION DETAIL on 10-09-2024 ED MED ADMINISTRATION DETAIL Business Enterprise Officer Medication Administration Record [address] [address] [id number] 10/09/2024 Patient: DALY EVANS Sex: Female : 1985 Age: 39y MEASUREMENTS: Wt: 90.7 kg, Ht/Jean-Paul: 67.0 in, BMI: 31.32 ALLERGIES: Duarte Medication Ordered Medication Administration Date/Time Zofran IVP [...] established. IV site checked: no pain, redness, Harvey SheehanN. or swelling. IV flushed thoroughly pre-medication administration. Stopped Information reviewed with patient including reason for taking this 10:21 10/09/2024 medication. - 08:59 Shameka Sheehan R.N. Scanned 10:10/09 Medication Discontinued: bag #1 infused. Total amount infused: 1000 mL. IV patency established. IV site checked: no pain, redness, or swelling. IV flushed thoroughly post-medication administration. - 10:31 Ariella Santamaria R.N. 1 of 4 Business Enterprise Officer Medication Ordered Medication Administration Date/Time Reglan IVP [...] IV flushed thoroughly post-medication administration. - 13:35 Harvey SheehanN. IV NS 0.9 % 1000 12:10/09 IV [...] medication. - 12:23 Ariella Santamaria R.N. Ariella Santamaria R.N. Scanned 13:10/09 Medication Discontinued: bag #2 infused. Total amount infused: 1000 mL. IV patency established. IV site checked: no pain, redness, or swelling. IV flushed thoroughly post-medication administration. - 13:35 Ariella Santamaria R.N. 2 of 4 Business Enterprise Officer Medication Ordered Medication Administration Date/Time Haloperidol IVP [...] - 12:21 Ariella Santamaria R.N. Magnesium Sulfate 13:10/09 Magnesium Sulfate 4gm/50mL Premix IVPB 2 g [...] 13:29 Johnathan (more content not included)... Normal [facility] ED NURSES CLINICAL NOTEon ED NURSES CLINICAL NOTE Nurse Narrative Nurse Clinical [address] [place] [address] [id number] 10/09/2024 08:13:00 Patient: DALY EVANS Sex: Female : 1985 Age: 39y Disposition: Transfer to [facility] Disposition Decision Time: 12:52 10/09/2024 Departure Time: 15:44 10/09/2024 TRIAGE Arrived by EMS. Historian: (group home records and patient). Primary physician (Krystian). Triage time: 08:21 10/09/2024. Acuity: LEVEL 2. Chief Complaint: ACCIDENTAL INGESTION (Pt received 115mg of methadone from a nurse at the group home that was not prescribed to her.). This occurred today. ( n/v; dizziness). SEPSIS SCREEN: NEGATIVE. SIRS criteria negative: heart rate greater than 90. No possible sources of infection. -- 08:35 10/09/24 CAMERONT Jessica Vidales R.N. 08:34 10/09/24. BP: 111/81 MAP: 91. HR: 114. RR: 10. O2 saturation: 96% Temperature: 98.8 F (oral). Pain level now 0/10. -- 08:34 10/09/24 CHARLY Vidales R.N. Measurements: 08:33 10/09/24 Wt: 90.7 kg, Ht/Jean-Paul: 67.0 in, BMI: 31.32 -- 08:34 10/09/24 CHARLY Vidales R.N. Medications: enoxaparin 100 mg/mL [...] a day. -- 09:10/09/24 CHARLY Vidales R.N. magnesium 400 mg (as magnesium oxide) tablet: 1 tablet once a day. -- 09:10/09/24 CHARLY Vidales R.N. loperamide 2 mg capsule: 1 capsule four times a day. (before meals and at bedtime) -- 09:10/09/24 CHARLY Vidales R.N. Lantus Solostar U-100 Insulin 100 unit/mL (3 mL) subcutaneous pen: 10 unit once a day. -- 09:10/09/24 CHARLY Vidales R.N. gabapentin 600 mg tablet: 1 tablet three times a day. -- 09:30 10/09/24 EDT Jessica Vidales R.N. ferrous sulfate 325 mg (65 mg iron) tablet: 1 tablet once a day. -- 09:30 10/09/24 CAMERONT Jessica Vidales R.N. escitalopram 20 mg tablet: 1 tablet once a day. -- 09:30 10/09/24 CAMERONT Jessica Vidales R.N. 2 of 8 Nurse Narrative Allergies: Duarte -- 08:31 10/09/24 CAMERONT Jessica Vidales R.N. Home Medications/Allergy Information Source: patient, group home record -- 08:28 10/09/24 CAMERONT Jessica Vidales R.N. Problems: Depression -- 08:31 10/09/24 CAMERONT Jessica Vidales R.N. Diabetes Mellitus -- 08:31 10/09/24 CAMERONT Jessica Vidales R.N. superior mesenteric artery injury -- 08:50 10/09/24 CAMERONT Jessica Vidales R.N. Monoclonal gammopathy (clinical) -- 08:51 10/09/24 CHARLY Vidales R.N. Thrombophilia -- 08:59 10/09/24 CAMERONT Jessica Vidales R.N. Hyperlipidemia -- 08:59 10/09/24 CAMERONT Jessica Vidales R.N. embolism and thrombosis of thoracic aorta -- 09:00 10/09/24 CHARLY Vidales R.N. 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 Iron deficiency anemia -- 09:02 (more content not included)... Normal [facility] ED ORDER SHEET (CPOE ONLY)on 10-09-2024 ED ORDER SHEET (CPOE ONLY) Order Sheet Order Sheet [address] [address] [id number] 10/09/2024 Patient: DALY EVANS Sex: Female : 1985 Age: 39y MEASUREMENTS: Wt: 90.7 kg, Ht/Jean-Paul: 67.0 in, BMI: 31.32 ALLERGIES: Duarte MEDICATION/IV/DRIP/FLUID ORDERS Order Description Priority Entered Acknowledged Completed Zofran IVP4 mg (NOW x1) 08:23 10/09/2024 08:40 08:55 Farzaneh Delatorre D.O. 10/09/2024 10/09/2024 Ariella Sheehan, R.N. R.N. IV NS 0.9 %1000 mL at 999 08:32 10/09/2024 08:40 08:59 mL/hr (NOW x1) Farzaneh Delatorre D.O. 10/09/2024 10/09/2024 Ariella Sheehan, R.N. R.N. Reglan IVP10 mg (NOW x1) 09:45 10/09/2024 09:46 09:50 Farzaneh Delatorre D.O. 10/09/2024 10/09/2024 Ariella Sheehan, R.N. R.N. Reason for ordering with alerts: Benefits outweigh risks --09:45 10/09/2024 Farzaneh Delatorre D.O. Pantoprazole (Protonix) 80 mg 10:12 10/09/2024 10:30 12:24 LOAD IVPB80 mg diluted in Farzaneh Delatorre D.O. 10/09/2024 10/09/2024 sodium chloride IVPB 0.9 [...] 10/09/2024 10:30 12:23 mL/hr (NOW x1) Farzaneh Delatorre D.O. 10/09/2024 10/09/2024 Ariella Sheehan, R.N. R.N. Reason for ordering with alerts: Clinical consideration given --10:28 10/09/2024 Farzaneh Delatorre D.O. Haloperidol IVP2 mg (NOW x1) 10:29 10/09/2024 10:30 12:21 Farzaneh Delatorre D.O. 10/09/2024 10/09/2024 Ariella Sheehan R.N. RPriscilaNPriscila Reason for ordering with alerts: Clinical consideration given --10:29 10/09/2024 Farzaneh Delatorre D.O. Haloperidol IVP2 mg (NOW x1) 12:08 10/09/2024 12:24 Ariella Santamaria R.N. 10/09/2024 Ariella Santamaria R.N. Reason for ordering with alerts: Clinical consideration given --10:29 10/09/2024 Farzaneh Delatorre D.O. MORPHine IVP2 mg (NOW x1, 12:03 10/09/2024 Cancelled: Other HIGH ALERT MEDICATION) Farzaneh Delatorre D.O. 12:10 EDT Farzaneh Delatorre D.O. Reason for ordering with alerts: Benefits outweigh risks --12:03 10/09/2024 Farzaneh Delatorre D.O. MORPHine IVP2 mg (NOW x1, 12:06 10/09/2024 Cancelled: Other HIGH ALERT MEDICATION) Farzaneh Delatorre D.O. 12:10 EDT Farzaneh Delatorre D.O. Reason for ordering with alerts: Benefits outweigh risks --12:03 10/09/2024 Farzaneh Delatorre, 2 of 5 Order Sheet Renae Haloperidol IVP2 mg 12:19 10/09/2024 12:24 Farzaneh Delatorre D.O. 10/09/2024 Ariella Santamaria R.N. Reason for ordering with alerts: Benefits outweigh risks --12:19 10/09/2024 Farzaneh Delatorre D.O. Magnesium Sulfate 4gm/50mL 12:29 10/09/2024 12:30 13:29 Premix IVPB2 g at 25 mL/hr Farzaneh Delatorre D.O. 10/09/2024 10/09/2024 (NOW x1, HIGH ALERT Ariella Sheehan, MEDICATION) R.N. R.N. potassium 14:42 10/09/2024 14:49 15:19 chloride(K-Philip)20mEq/100m l Farzaneh Delatorre D.O. 10/09/2024 10/09/2024 IVPB [id number] mEq at 50 mL/hr Ariella Sheehan, (NOW x1, HIGH ALERT R.N. R.N. MEDICATION) potassium 14:42 10/09/2024 Cancelled: Patient Off Unit chloride(K-Philip)20mEq/100m l Farzaneh Delatorre D.O. 16:22 EDT Ariella Santamaria R.N. IVPB [id number] mEq at 50 mL/hr (NOW x1, HIGH ALERT MEDICATION) Reason for ordering with alerts: Clinical consideration given --14:42 10/09/2024 Farzaneh Delatorre D.O. LAB ORDERS Order Description Priority Entered [...] Sheet Ariella Harrington Natalie Yoder, D.O. R.N. R.NPriscila CMP Stat Stat 08:22 10/09/2024 08:40 10/09/2024 08:59 10/09/2024 Ariella Harrington Natalie Yoder, D.O. R.N. R.NPriscila Magnesium Stat Stat 09:42 10/09/2024 09:44 10/09/2024 12:24 10/09/2024 Ariella Harrington Natalie Yoder, D.O. R.N. R.NPriscila Occult Blood, Gastric Stat 09:43 10/09/2024 09:44 10/09/2024 12:24 10/09/2024 Stat Ariella Harrington Natalie Yoder, D.O. R.N. R.N. PT with INR Stat Stat 10:13 10/09/2024 10:30 10/09/2024 12:24 10/09/2024 Ariella Harrington Natalie Yoder, D.O. R.NPriscila R.N. PTT Stat Stat 10:14 10/09/2024 10:30 10/09/2024 12:24 10/09/2024 Ariella Harrington Natalie Yoder, D.O. RPriscilaNPriscila RPriscilaNPriscila Haloperidol [CCL] Stat Stat 12:18 10/09/2024 12:24 10/09/2024 12:24 10/09/2024 Ariella Harrington, Na (more content not included)... Normal [facility] ED PHYSICIAN CLINICAL REPORT on 10-09-2024 ED PHYSICIAN CLINICAL REPORT Narrative Physician Clinical Narrative [address] [place] [address] [id number] 10/09/2024 08:13:00 Patient: DALY EVANS Sex: Female : 1985 Age: 39y Disposition: Transfer to [facility] Disposition Decision Time: 12:52 10/09/2024 Measurements Wt: [...] throat. RESPIRATORY: No cough or difficulty breathing. 15 Narrative Status: Not . PAST HISTORY [...] subcutaneous syringe: twice a day. (give per [place] MAR dose of 0.95ml) escitalopram 20 mg [...] piggyback: 1500 mg twice a day. Allergies: [facility] Medications/Allergy Information Source: patient, group home record - Jessica Vidales R.N., 10/09/2024 08:28 [...] 450 Fi (more content not included)... Normal [facility] ED [facility] BILLon 10-09-2024 ED [facility] [address] [place] [address] [id number] 10/09/2024 Patient: DALY EVANS Sex: Female : 1985 Age: 39y Facility Professional Category Item Description Code Code Quantity Fee Total Nurse/E/M EMERGENCY 755133 1 $0.00 $0.00 DEPT VISIT HIGH SEVERITYFUNCJ (65155-05) Nurse/IV/IM/Infusions Drip/IVPB initial 473486 1 $0.00 $0.00 (42385) Nurse/IV/IM/Infusions Drip/IVPB seq [id number] 2 $0.00 $0.00 (71824) Nurse/IV/IM/Infusions Hydration 590046 1 $0.00 $0.00 additional hour (78750) Nurse/IV/IM/Infusions IVP additional 266702 2 $0.00 $0.00 push (97711) Nurse/IV/IM/Infusions IVP initial (27057) 326557 1 $0.00 $0.00 Grand $0.00 Total Providers Farzaneh Delatorre D.O. 1 of 2 Superbill Chief Complaint DRUG OVERDOSE. Principal Diagnosis Accidental overdose with methadone. Occult and minor GI bleed. Moderate acute renal failure. Hyperglycemia. Hypokalemia. Hypomagnesemia. ICD-10 Codes T40.3X1A: Poisoning by methadone, accidental (unintentional), initial encounter N19: Unspecified kidney failure N17.9: Acute kidney failure, unspecified E83.42: Hypomagnesemia E87.6: Hypokalemia K52.9: Noninfective gastroenteritis and colitis, unspecified R73.9: Hyperglycemia, unspecified K92.2: Gastrointestinal hemorrhage, unspecified 2 of 2 Normal [facility] ED VISIT SUMMARYon ED VISIT SUMMARY Visit Overview Visit Overview [address] [address] [id number] 10/09/2024 Patient: DALY EVANS Sex: Female : 1985 Age: 39y 10/09/2024 04:30 PM EDT ED Arrival:08:13 10/09/2024 EDT Status:not Recent Travel:no Language:eng Adv Directive: Isolation Status: Ethnicity:N Fall Risk:risk Infectious Disease Exposure:no Measurements:5'7" / 170.2 Self-Harm Status:risk Sepsis Screen:negative cm 200.0 lb / 90.7 kg Chief Complaint:ACCIDENTAL INGESTION, ([place]), (n/v; dizziness), and (Pt received 115mg of methadone from a nurse at the group home that was not prescribed to her. ) ALLERGIES [facility] acetaminophen 325 mg chewable tablet: 1 tablet every six hours as needed. aspirin 81 mg chewable tablet: 1 tablet once a day. atorvastatin 40 mg tablet: 1 tablet once a day. Visit Overview enoxaparin 100 mg/mL subcutaneous syringe: twice a day. (give per [place] MAR dose of 0.95ml) escitalopram 20 mg [...] 08:31 10/09/24 BP 15:28 10/09/24 99/80 HR 08:31 10/09/24 111 HR 15:28 10/09/24 94 3 of [...] MINOR GI BLEED 4 of 4 Normal [facility] ED VITALS FLOW SHEETon 10-09 ED VITALS FLOW SHEET Vitals Vital Sign Flow Sheet [place] [id number] [place] [address] [phone] 10/09/2024 Patient: DALY EVANS Sex: Female : [...] 100/73 80 94 10:36 10/09/2024 93 96% 10:10/09/2024 97 97% 10:22 10/09/2024 108 98% 10:21 [...] 10/09/2024 111 96% 4 of 4 Normal [facility] HISTORY PHYSICALon HISTORY PHYSICAL HNO ID: [id number] Author: ROSA MARIA BULLOCK MD Service: General Internal Medicine Author Type: Physician Type: H&P Filed: 10/09/2024 17:16 Note Text: DEPARTMENT OF HOSPITAL MEDICINE HISTORY AND PHYSICAL EXAM SERVICE DATE: 10/09/2024 SERVICE TIME: 5:06 PM Primary Care Physician: Cosem Boland DO Subjective CHIEF COMPLAINT: Accidental overdose HPI: This is a 39 year old female with past medical history of bipolar 2, panic disorder, ELIJAH, obesity, DVT on Lovenox, status post colostomy who presented to [facility] ED for accidental overdose. Patient resides in [...] PAST MEDICAL HISTORY Diagnosis Date Attempted suicide ([facility]) polysubstance Bipolar depression ([facility]) [facility]- Cameila Whyte Gestational diabetes mellitus in ([facility]) Impaired fasting blood sugar 06/2015 a1c 5.7% [...] Never Tobacco comments: Pateint only uses the "Vape" She doesnt smoke nicotine Patient quit smoking [...] Patient ta (more content not included)... Normal [facility] MAGNESIUMon 10-09-2024 Magnesium [Mass/Vol] 1.5 mg/dL Low 1.8 - 2.4 [facility] Comment on above: Performed By: #### 2 03523 #### [place] [address] OCCULT BLOOD GASTRICon 10-09 OCCULT BLOOD GASTRIC Normal [facility] Comment on above: Result Comment: { OC CULT BLOOD POSITIVE (NEGATIVE ) { SPECIMEN GASTRIC ASPIRATE Performed By: #### 2 21504 #### [place] [address] pH (Bld) 4 [pH] Normal [facility] Comment on above: Performed By: #### 2 90994 #### [place] [address] PROTHROMBIN TIME AND INRon 0 10-09-2024 INR Coag (PPP) [Relative time] 1.3 {INR} High 0.8 - 1.2 [facility] Comment on above: Result Comment: T HE [...] MECHANICAL HEART VALVES Performed By: #### 2 24266 #### [place] [address] PROTHROMBIN TIME AND INR Normal [facility] Comment on above: Result Comment: PROT HROMBIN TIME AND INR Performed By: #### 2 63788 #### [place] [address] PT-COUMADIN 14.2 sec High 9.3 - 14.1 [facility] Comment on above: Performed By: #### 2 66093 #### [place] [address] TROPONINon 10-09-2024 HS TROPONIN 6.2 pg/mL Normal 0.0 - 51.4 [facility] Comment on above: Performed By: #### 2 67726 #### [facility],[address] [place] [address] US KIDNEY/BLADDERon 10-10-19 25 US KIDNEY/BLADDER * * *Final Report* * * DATE OF EXAM: Oct 09 2024 7:04PM [facility] - US KIDNEY/BLADDER / PROCEDURE REASON: [...] the bladder lumen; please correlate with urinalysis. Actuarial Technician: NANCY Transcribe Date/Time: Oct 10 2024 4:59A Dictated by : CHRISTIAN LEE MD This examination was interpreted and the report reviewed and electronically signed by: CHRISTIAN LEE MD on Oct 10 2024 5:02AM EST [id number] Normal [facility] Vancomycin [place] SerPl-mCncon 10-09-2024 Vancomycin random [Mass/Vol] 11.1 ug/mL Normal 10.0-25.0 [facility] Comment on above: Order Comment: Speci men Type: BLOOD SPECIMEN Ordering Facility: [facility] Address: [address] [place] [address] Result Comment: Refe rence ranges and high/low indicator flags are provided as general guidelines only. The treating physician must determine appropriate target levels/dosing based on the specific clinical situation. Performed By: #### 4 091-5 #### [facility] CLIA [id number] [address] [place] [address] [place] CBC + DIFFon 10-04-2024 Baso # 0.02 x10EE3/UL Normal 0.00 - 0.10 [facility] Comment on above: Performed By: #### 2 37117 #### [facility],[address] [place] [address] Basophils/100 WBC (Bld) 0.3 % Normal 0.0 - 2.0 [facility] Comment on above: Performed By: #### 2 38532 #### [facility],[address] [place] [address] CBC + DIFF Normal [facility] Comment on above: Result Comment: CBC- COMPLETE BLOOD COUNT Performed By: #### 2 93237 #### [facility],[address] [place] [address] EO # 0.16 x10EE3/UL Normal 0.00 - 0.50 [facility] Comment on above: Performed By: #### 2 76127 #### [facility],[address] [place] [address] Eosinophils/100 WBC (Bld) 2.7 % Normal 0.0 - 7.0 [facility] Comment on above: Performed By: #### 2 32829 #### [facility],[address] [place] [address] Erythrocyte distribution width (RBC) [Ratio] 15.9 % High 12.0 - 15.6 [facility] Comment on above: Performed By: #### 2 76352 #### [facility],[address] [place] [address] Hematocrit (Bld) [Volume fraction] 29.2 % Low 34.0 - 46.0 [facility] Comment on above: Performed By: #### 2 99002 #### [facility],[address] [place] [address] Hemoglobin (Bld) [Mass/Vol] 9.7 g/dL Low 12.0 - 16.0 [facility] Comment on above: Performed By: #### 2 56546 #### [facility],[address] [place] [address] Lymph # 2.40 x10EE3/UL Normal 0.80 - 2.80 [facility] Comment on above: Performed By: #### 2 76945 #### [facility],[address] [place], [place] [address] Lymphocytes/100 WBC (Bld) 39.2 % Normal 20.0 - 45.0 [facility] Comment on above: Performed By: #### 2 01524 #### [facility],[address] [place] [address] MANUAL DIFF N/A Normal [facility] Comment on above: Performed By: #### 2 56255 #### [facility],[address] [place] [address] MCH (RBC) [Entitic mass] 26 pg Low 27 - 33 [facility] Comment on above: Performed By: #### 2 92776 #### [facility],[address] [place] [address] MCHC 33 X10 3 Normal 32 - 36 [facility] Comment on above: Performed By: #### 2 40806 #### [facility],[address] [place] [address] MCV (RBC) [Entitic vol] 77 fL Low 80 - 99 [facility] Comment on above: Performed By: #### 2 18497 #### [facility],[address] [place] [address] Mccreary # 0.56 x10EE3/UL Normal 0.20 - 1.00 [facility] Comment on above: Performed By: #### 2 11063 #### [facility],[address] [place] [address] MONOS % 9.2 % Normal 0.0 - 10.0 [facility] Comment on above: Performed By: #### 2 47832 #### [place] [address] Morphology Stan (Bld) [Interp] N/A Normal [facility] Comment on above: Performed By: #### 2 18363 #### [facility],[address] [place] [address] Neut # 2.99 x10EE3/UL Normal 1.50 - 7.10 [facility] Comment on above: Performed By: #### 2 18438 #### [place] [id number] Neutrophils/100 WBC (Bld) 48.7 % Normal 46.0 - 76.0 [facility] Comment on above: Performed By: #### 2 14267 #### [place] [address] PLATELET 504 x10EE3/UL High 150 - 450 [facility] Comment on above: Performed By: #### 2 98820 #### [facility],[address] [place] [address] Platelet mean volume (Bld) [Entitic vol] 7.8 fL Normal 6.6 - 10.5 [facility] Comment on above: Result Comment: AUTO MATED DIFFERENTIAL Performed By: #### 2 03533 #### [place] [address] RBC 3.79 x 10EE6/UL Low 4.10 - 5.30 [facility] Comment on above: Performed By: #### 2 29420 #### [place] [id number] WBC 6.1 x 10EE3/UL Normal 4.5 - 10.8 [facility] Comment on above: Performed By: #### 2 65059 #### [place] [id number] VANCOMYCIN TROUGHon 10-04-19 25 VANCOMYCIN,TROUGH 11.5 ug/mL High 5.0 - 10.0 [facility] Comment on above: Performed By: #### 2 32421 ####[place] [id number] CBC W Ordered Manual Differe ntial panel (Bld)on 10-02-2024 Basophils (Bld) [#/Vol] 0.04 10*3/uL [facility] Basophils/100 WBC (Bld) 0.5 % [facility] Differential cell count method Nom (Bld) Auto [facility] Eosinophils (Bld) [#/Vol] 0.14 10*3/uL [facility] Eosinophils/100 WBC (Bld) 1.9 % [facility] Erythrocyte distribution width (RBC) [Ratio] 15.7 % High 11.5 - 15.0 % [facility] Hematocrit (Bld) [Volume fraction] 30.2 % Low 36.0 - 46.0 % [facility] Hemoglobin (Bld) [Mass/Vol] 9.2 g/dL Low 11.5 - 15.5 g/dL [facility] Immature granulocytes (Bld) [#/Vol] [facility] Immature granulocytes/100 WBC (Bld) 0.3 % [facility] Interpretation and review of laboratory results Abnormal [facility] Lymphocytes (Bld) [#/Vol] 2.27 10*3/uL [facility] Lymphocytes/100 WBC (Bld) 30.5 % [facility] MCH (RBC) [Entitic mass] 24.2 pg Low 26.0 - 34.0 pg [facility] MCHC (RBC) [Mass/Vol] 30.5 g/dL 30.5 - 36.0 g/dL [facility] MCV (RBC) [Entitic vol] 79.5 fL Low 80.0 - 100.0 fL [facility] Monocytes (Bld) [#/Vol] 0.53 10*3/uL [facility] Monocytes/100 WBC (Bld) 7.1 % [facility] Neutrophils (Bld) [#/Vol] 4.44 10*3/uL [facility] Neutrophils/100 WBC (Bld) 59.7 % [facility] Nucleated RBC (Bld) [#/Vol] [facility] Nucleated RBC/100 WBC (Bld) [Ratio] 0 % /100 WBC [facility] Platelet mean volume (Bld) [Entitic vol] 9 fL 9.0 - 12.7 fL [facility] Platelets (Bld) [#/Vol] 443 10*3/uL High [facility] RBC (Bld) [#/Vol] 3.8 10*6/uL Low 3.90 - 5.2 0 m/uL [facility] WBC (Bld) [#/Vol] 7.44 10*3/uL [facility] This is an appended report. These results have been appended to a previously verified report. [facility] IMMUNOGLOBULINS,IGG,IGA,IGMo n 10-02-2024 IgA [Mass/Vol] 324 mg/dL 70 - 400 mg/dL [facility] IgG [Mass/Vol] 2708 mg/dL High 700 - 1600 mg/dL [facility] IgM [Mass/Vol] 99 mg/dL 40 - 230 mg/dL [facility] Interpretation and review of laboratory results Abnormal [facility] LMW ANTI XA ASSAYOrdered By: Yoseph Urban on 10-02-2024 LMW Heparin Qn (PPP) 0.49 High [facility] Comment on above: Therapeutic Range: 0 .5 to 1.1 IU/mL ([facility] Lab Med 1998: 122:799 to 807). LMW Heparin Qn (PPP)Ordered By: Yoseph Urban on 10-02-2024 Interpretation and review of laboratory results Abnormal [facility] Frozen Plasma Aliquo t [facility] PATHOLOGIST INTERPRETATION C BC/DIFFOrdered By: Jaden Sr on 10-02-2024 Cloud Services Architect review Stan (Unsp spec) [Interp] No review performed. [facility] Pathologist Interpretation, CBCDIF The Pathologist Interpretation on this sample was cancelled because the hematology analyzer did not flag any parameters as requiring manual review. If there is a specific clinical concern for which you would like a pathologist to review the blood smear, please call Lab Client Services within 28 days. Account Credited [facility] CMP with eGFRon 10-01-2024 AGE 39 years Normal [facility] Comment on above: Performed By: #### 2 60123 ####[facility],[address] [place], [place] [id number] Albumin [Mass/Vol] 1.8 g/dL Low 3.4 - 5.0 [facility] Comment on above: Performed By: #### 2 82513 ####[facility],[address] [place] [address] Albumin/Globulin [Mass ratio] 0.4 {ratio} Low 0.9 - 1.6 [facility] Comment on above: Performed By: #### 2 75142 ####[facility],[address] [place] [address]4553 ALK PHOS 114 U/L Normal 46 - 116 [facility] Comment on above: Performed By: #### 2 58041 ####[facility],[address] [place] [address] 97255 ALT [Catalytic activity/Vol] 79 U/L High 16 - 63 [facility] Comment on above: Performed By: #### 2 83434 ####[facility],[address] [place] [address]16 Anion gap [Moles/Vol] 10 mmol/L Normal 10 - 20 [facility] Comment on above: Performed By: #### 2 14326 ####[facility],[address] [place] [address]294 AST [Catalytic activity/Vol] 34 U/L Normal 13 - 39 [facility] Comment on above: Performed By: #### 2 73307 ####[facility],[address] [place] [address]62 B/C RATIO 21 ratio Normal 0 - 30 [facility] Comment on above: Performed By: #### 2 92841 ####[facility],[address] [place] [address]407 Bilirubin [Mass/Vol] 0.5 mg/dL Normal 0.2 - 1.0 [facility] Comment on above: Performed By: #### 2 11094 ####[facility],[address] [place] [address]39 Calcium [Mass/Vol] 7.8 mg/dL Low 8.5 - 10.1 [facility] Comment on above: Performed By: #### 2 84145 ####[facility],[address] [place] [address] 10846 Chloride [Moles/Vol] 105 mmol/L Normal 98 - 107 [facility] Comment on above: Performed By: #### 2 16668 ####[facility],[address] [place] [address] CMP with eGFR Normal [facility] Comment on above: Result Comment: COMP REHENSIVE METABOLIC PANEL Performed By: #### 2 11968 ####[facility],[address] [place] [address]8036 CO2 [Moles/Vol] 27.9 mmol/L Normal 21.0 - 32.0 [facility] Comment on above: Performed By: #### 2 91192 ####[facility],[address] [place], [place] [address] Creatinine [Mass/Vol] 0.71 mg/dL Normal 0.55 - 1.02 [facility] Comment on above: Performed By: #### 2 52072 ####[facility],[address] [place], [place] [address] GFR/1.73 sq M.predicted among non-blacks MDRD (S/P/Bld) [Vol rate/Area] mL/min/{1.73_m2} Normal 60 - 999 [facility] Comment on above: Performed By: #### 2 93864 ####[facility],[address] [place] [address] Result Comment: ACCO RDING TO THE NATIONAL KIDNEY DISEASE EDUCATION PROGRAM(NKDE), A NORMAL eGFR IS A VALUE GREATER THAN OR EQUAL TO 60 ML/MIN/1.73 SQ METERS. CHRONIC KIDNEY DISEASE: <60mL/MIN/1.73 SQ METERS KIDNEY FAILURE: <15mL/MIN/1.73 SQ METERS THIS TEST SHOULD ONLY BE USED FOR PATIENTS 18 YEARS OF AGE AND OLDER. Globulin (S) [Mass/Vol] 5.1 g/dL High 1.5 - 3.8 [facility] Comment on above: Performed By: #### 2 24698 ####[facility],[address] [place], [place] [address] Glucose [Mass/Vol] 170 mg/dL High 74 - 106 [facility] Comment on above: Performed By: #### 2 55350 ####[facility],[address] [place] [address] Potassium [Moles/Vol] 3.7 mmol/L Normal 3.5 - 5.1 [facility] Comment on above: Performed By: #### 2 88649 ####[facility],[address] [place] [address]43 Protein [Mass/Vol] 6.9 g/dL Normal 6.4 - 8.2 [facility] Comment on above: Performed By: #### 2 66462 ####[facility],[address] [place] [address] 98163 Sodium [Moles/Vol] 139 mmol/L Normal 136 - 145 [facility] Comment on above: Performed By: #### 2 76388 ####[place] [id number] Urea nitrogen [Mass/Vol] 15 mg/dL Normal 7 - 18 [facility] Comment on above: Performed By: #### 2 78662 ####[facility],[address] [place] [address] MAGNESIUMon 10-01-2024 Magnesium [Mass/Vol] 1.8 mg/dL Normal 1.8 - 2.4 [facility] Comment on above: Performed By: #### 2 70312 #### [facility],[address] [place] [address]83 PHOSPHORUSon 10-01-2024 Phosphate [Mass/Vol] 3.6 mg/dL Normal 2.6 - 4.7 [facility] Comment on above: Performed By: #### 2 39693 ####[facility],[address] [place] [address]8836 VANCOMYCIN TROUGHon 10-02-19 25 VANCOMYCIN,TROUGH 10.8 ug/mL High 5.0 - 10.0 [facility] Comment on above: Performed By: #### 2 38453 ####[facility],[address] [place] [address] VANCOMYCIN TROUGHon 09-29-19 25 VANCOMYCIN,TROUGH 9.6 ug/mL Normal 5.0 - 10.0 [facility] Comment on above: Performed By: #### 2 70842 #### [facility],[address] [place] [address] CBC + DIFFon 09-27-2024 Baso # 0.03 x10EE3/UL Normal 0.00 - 0.10 [facility] Comment on above: Performed By: #### 2 36676 ####[place] [address] Basophils/100 WBC (Bld) 0.5 % Normal 0.0 - 2.0 [facility] Comment on above: Performed By: #### 2 49496 ####[place] [address] CBC + DIFF Normal [facility] Comment on above: Result Comment: CBC- COMPLETE BLOOD COUNT Performed By: #### 2 61802 ####[place] [address] EO # 0.16 x10EE3/UL Normal 0.00 - 0.50 [facility] Comment on above: Performed By: #### 2 24108 ####[place] [address] Eosinophils/100 WBC (Bld) 2.4 % Normal 0.0 - 7.0 [facility] Comment on above: Performed By: #### 2 97634 ####[place] [address] Erythrocyte distribution width (RBC) [Ratio] 16.7 % High 12.0 - 15.6 [facility] Comment on above: Performed By: #### 2 00004 ####[place] [address] Hematocrit (Bld) [Volume fraction] 27.6 % Low 34.0 - 46.0 [facility] Comment on above: Performed By: #### 2 92548 ####[facility],[address] [place], [place] [address] Hemoglobin (Bld) [Mass/Vol] 8.8 g/dL Low 12.0 - 16.0 [facility] Comment on above: Performed By: #### 2 12497 ####[facility],[address] [place] [address] Lymph # 1.44 x10EE3/UL Normal 0.80 - 2.80 [facility] Comment on above: Performed By: #### 2 88148 ####[facility],[address] [place], [place] [address] Lymphocytes/100 WBC (Bld) 21.3 % Normal 20.0 - 45.0 [facility] Comment on above: Performed By: #### 2 04664 ####[facility],[address] [place], [place] [address] MANUAL DIFF N/A Normal [facility] Comment on above: Performed By: #### 2 42005 ####[facility],[address] [place] [address]008 MCH (RBC) [Entitic mass] 25 pg Low 27 - 33 [facility] Comment on above: Performed By: #### 2 68412 ####[facility],[address] [place] [address] 85515 MCHC 32 X10 3 Normal 32 - 36 [facility] Comment on above: Performed By: #### 2 60312 ####[facility],[address] [place] [address] 96565 MCV (RBC) [Entitic vol] 79 fL Low 80 - 99 [facility] Comment on above: Performed By: #### 2 78313 ####[facility],[address] [place], [place] [address] Mccreary # 0.61 x10EE3/UL Normal 0.20 - 1.00 [facility] Comment on above: Performed By: #### 2 70083 ####[facility],[address] [place] [address]84 MONOS % 9.1 % Normal 0.0 - 10.0 [facility] Comment on above: Performed By: #### 2 82427 ####[facility],[address] [place] [address] Morphology Stan (Bld) [Interp] N/A Normal [facility] Comment on above: Performed By: #### 2 97811 ####[place] [address] Neut # 4.51 x10EE3/UL Normal 1.50 - 7.10 [facility] Comment on above: Performed By: #### 2 45948 ####[place] [address] Neutrophils/100 WBC (Bld) 66.8 % Normal 46.0 - 76.0 [facility] Comment on above: Performed By: #### 2 32436 ####[place] [address] PLATELET 543 x10EE3/UL High 150 - 450 [facility] Comment on above: Performed By: #### 2 82689 ####[place] [address] Platelet mean volume (Bld) [Entitic vol] 7.9 fL Normal 6.6 - 10.5 [facility] Comment on above: Result Comment: AUTO MATED DIFFERENTIAL Performed By: #### 2 91085 ####[place] [address] RBC 3.51 x 10EE6/UL Low 4.10 - 5.30 [facility] [facility] Comment on above: Performed By: #### 2 [id number] ####[address],[place] [address] WBC 6.8 x 10EE3/UL Normal 4.5 - 10.8 [facility] Comment on above: Performed By: #### 2 31874 ####[facility],[address] [place] [address] 33875 CMP with eGFRon 09-27-2024 AGE 39 years Normal [facility] Comment on above: Performed By: #### 2 92383 ####[facility],[address] [place] [address] 15206 Albumin [Mass/Vol] 1.8 g/dL Low 3.4 - 5.0 [facility] Comment on above: Performed By: #### 2 01332 ####[facility],[address] [place] [address] 81364 Albumin/Globulin [Mass ratio] 0.3 {ratio} Low 0.9 - 1.6 [facility] Comment on above: Performed By: #### 2 00202 ####[facility],[address] [place] [address] 49650 ALK PHOS 131 U/L High 46 - 116 [facility] Comment on above: Performed By: #### 2 35693 ####[facility],[address] [place] [address] 37010 ALT [Catalytic activity/Vol] 90 U/L High 16 - 63 [facility] Comment on above: Performed By: #### 2 33218 ####[facility],[address] [place] [address] 20063 Anion gap [Moles/Vol] 10 mmol/L Normal 10 - 20 [facility] Comment on above: Performed By: #### 2 59900 ####[facility],[address] [place] [address] 84907 AST [Catalytic activity/Vol] 40 U/L High 13 - 39 [facility] Comment on above: Performed By: #### 2 93896 ####[facility],[address] [place] [address] 48715 B/C RATIO 20 ratio Normal 0 - 30 [facility] Comment on above: Performed By: #### 2 05519 ####[facility],[address] [place] [address] 84451 Bilirubin [Mass/Vol] 0.5 mg/dL Normal 0.2 - 1.0 [facility] Comment on above: Performed By: #### 2 30105 ####[facility],[address] [place] [address] 56942 Calcium [Mass/Vol] 8.1 mg/dL Low 8.5 - 10.1 [facility] Comment on above: Performed By: #### 2 60837 ####[facility],[address] [place] [address] 85521 Chloride [Moles/Vol] 102 mmol/L Normal 98 - 107 [facility] Comment on above: Performed By: #### 2 66982 ####[facility],[address] [place] [address] 02983 CMP with eGFR Normal [facility] Comment on above: Result Comment: COMP REHENSIVE METABOLIC PANEL Performed By: #### 2 69286 ####[facility],[address] [place] [address] 70004 CO2 [Moles/Vol] 26.0 mmol/L Normal 21.0 - 32.0 [facility] Comment on above: Performed By: #### 2 44330 ####[facility],[address] [place] [address] 46945 Creatinine [Mass/Vol] 0.71 mg/dL Normal 0.55 - 1.02 [facility] Comment on above: Performed By: #### 2 20160 ####[facility],[address] [place] [address] 94342 GFR/1.73 sq M.predicted among non-blacks MDRD (S/P/Bld) [Vol rate/Area] mL/min/{1.73_m2} Normal 60 - 999 [facility] Comment on above: Performed By: #### 2 77335 ####[facility],[address] [place] [address] 20685 Result Comment: ACCO RDING TO THE NATIONAL KIDNEY DISEASE EDUCATION PROGRAM(NKDE), A NORMAL eGFR IS A VALUE GREATER THAN OR EQUAL TO 60 ML/MIN/1.73 SQ METERS. CHRONIC KIDNEY DISEASE: <60mL/MIN/1.73 SQ METERS KIDNEY FAILURE: <15mL/MIN/1.73 SQ METERS THIS TEST SHOULD ONLY BE USED FOR PATIENTS 18 YEARS OF AGE AND OLDER. Globulin (S) [Mass/Vol] 5.3 g/dL High 1.5 - 3.8 [facility] Comment on above: Performed By: #### 2 77376 ####[facility],[address] [place] [address] 74767 Glucose [Mass/Vol] 82 mg/dL Normal 74 - 106 [facility] Comment on above: Performed By: #### 2 92480 ####[facility],[address] [place] [address] 61567 Potassium [Moles/Vol] 3.6 mmol/L Normal 3.5 - 5.1 [facility] Comment on above: Performed By: #### 2 99969 ####[facility],[address] [place] [address] 74166 Protein [Mass/Vol] 7.1 g/dL Normal 6.4 - 8.2 [facility] Comment on above: Performed By: #### 2 85218 ####[facility],[address] [place] [address] 44591 Sodium [Moles/Vol] 134 mmol/L Low 136 - 145 [facility] Comment on above: Performed By: #### 2 65360 ####[facility],[address] [place] [address] 23041 Urea nitrogen [Mass/Vol] 14 mg/dL Normal 7 - 18 [facility] Comment on above: Performed By: #### 2 63105 ####[facility],[address] [place] [address] 98342 MAGNESIUMon 09-27-2024 Magnesium [Mass/Vol] 1.9 mg/dL Normal 1.8 - 2.4 [facility] Comment on above: Performed By: #### 2 38744 #### [facility],[address] [place] [address] 56749 BMP with eGFRon 09-25-2024 AGE 39 years Normal [facility] Comment on above: Performed By: #### 2 37575 ####[facility],[address] [place] [address] 80735 Anion gap [Moles/Vol] 14 mmol/L Normal 10 - 20 [facility] Comment on above: Performed By: #### 2 16794 ####[facility],[address] [place] [address] 39757 BMP with eGFR Normal [facility] Comment on above: Result Comment: BASI C METABOLIC PANEL Performed By: #### 2 11388 ####[facility],[address] [place] [address] 85659 Calcium [Mass/Vol] 8.5 mg/dL Normal 8.5 - 10.1 [facility] Comment on above: Performed By: #### 2 25963 ####[facility],[address] [place] [address] 80728 Chloride [Moles/Vol] 101 mmol/L Normal 98 - 107 [facility] Comment on above: Performed By: #### 2 65005 ####[facility],[address] [place] [address] 36284 CO2 [Moles/Vol] 23.2 mmol/L Normal 21.0 - 32.0 [facility] Comment on above: Performed By: #### 2 50400 ####[facility],[address] [place] [address] 92165 Creatinine [Mass/Vol] 0.87 mg/dL Normal 0.55 - 1.02 [facility] Comment on above: Performed By: #### 2 87750 ####[facility],[address] [place] [address] 98449 GFR/1.73 sq M.predicted among non-blacks MDRD (S/P/Bld) [Vol rate/Area] mL/min/{1.73_m2} Normal 60 - 999 [facility] Comment on above: Performed By: #### 2 11781 ####[facility],[address] [place], [place] [address] Result Comment: ACCO RDING TO THE NATIONAL KIDNEY DISEASE EDUCATION PROGRAM(NKDE), A NORMAL eGFR IS A VALUE GREATER THAN OR EQUAL TO 60 ML/MIN/1.73 SQ METERS. CHRONIC KIDNEY DISEASE: <60mL/MIN/1.73 SQ METERS KIDNEY FAILURE: <15mL/MIN/1.73 SQ METERS THIS TEST SHOULD ONLY BE USED FOR PATIENTS 18 YEARS OF AGE AND OLDER. Glucose [Mass/Vol] 89 mg/dL Normal 74 - 106 [facility] Comment on above: Performed By: #### 2 49413 ####[address] [address] Potassium [Moles/Vol] 4.6 mmol/L Normal 3.5 - 5.1 [facility] Comment on above: Performed By: #### 2 79825 ####[facility],[address] [place] [address] 61714 Sodium [Moles/Vol] 134 mmol/L Low 136 - 145 [facility] Comment on above: Performed By: #### 2 44889 ####[facility],[address] [place] [address] 10754 Urea nitrogen [Mass/Vol] 11 mg/dL Normal 7 - 18 [facility] Comment on above: Performed By: #### 2 86115 ####[facility],[address] [place] [address] 41459 VANCOMYCIN TROUGHon 09-26-19 25 VANCOMYCIN,TROUGH 4.9 ug/mL Low 5.0 - 10.0 [facility] Comment on above: Performed By: #### 2 70332 #### [facility],[address] [place] [address] 91088 VANCOMYCIN,TROUGH 5.0 ug/mL Normal 5.0 - 10.0 [facility] Comment on above: Performed By: #### 2 28183 #### [facility],[address] [place] [address] CBC + DIFFon 09-24-2024 Baso # 0.07 x10EE3/UL Normal 0.00 - 0.10 [facility] Comment on above: Performed By: #### 2 35903 ####[facility],[address] [place] [address] 59473 Basophils/100 WBC (Bld) 0.6 % Normal 0.0 - 2.0 [facility] Comment on above: Performed By: #### 2 68926 ####[facility],[address] [place] [address] CBC + DIFF Normal [facility] Comment on above: Result Comment: CBC- COMPLETE BLOOD COUNT Performed By: #### 2 75628 ####[facility],[address] [place] [address] 54335 EO # 0.24 x10EE3/UL Normal 0.00 - 0.50 [facility] Comment on above: Performed By: #### 2 67640 ####[facility],[address] [place] [address] 70765 Eosinophils/100 WBC (Bld) 1.9 % Normal 0.0 - 7.0 [facility] Comment on above: Performed By: #### 2 11199 ####[facility],[address] [place], [place] [address] Erythrocyte distribution width (RBC) [Ratio] 17.1 % High 12.0 - 15.6 [facility] Comment on above: Performed By: #### 2 89266 ####[facility],[address] [place] [address] 17060 Hematocrit (Bld) [Volume fraction] 26.8 % Low 34.0 - 46.0 [facility] Comment on above: Performed By: #### 2 12045 ####[facility],[address] [place] [address] 22603 Hemoglobin (Bld) [Mass/Vol] 8.6 g/dL Low 12.0 - 16.0 [facility] Comment on above: Performed By: #### 2 95726 ####[facility],[address] [place] [address] Lymph # 2.14 x10EE3/UL Normal 0.80 - 2.80 [facility] Comment on above: Performed By: #### 2 75991 ####[facility],[address] [place], [place] [address] Lymphocytes/100 WBC (Bld) 17.2 % Low 20.0 - 45.0 [facility] Comment on above: Performed By: #### 2 95914 ####[facility],[address] [place] [address] 82770 MANUAL DIFF N/A Normal [facility] Comment on above: Performed By: #### 2 36816 ####[facility],[address] [place] [address] 83660 MCH (RBC) [Entitic mass] 25 pg Low 27 - 33 [facility] Comment on above: Performed By: #### 2 25594 ####[facility],[address] [place] [address] 71371 MCHC 32 X10 3 Normal 32 - 36 [facility] Comment on above: Performed By: #### 2 79130 ####[facility],[address] [place] [address] 96605 MCV (RBC) [Entitic vol] 79 fL Low 80 - 99 [facility] Comment on above: Performed By: #### 2 09115 ####[facility],[address] [place] [address] 70104 Mccreary # 1.36 x10EE3/UL High 0.20 - 1.00 [facility] Comment on above: Performed By: #### 2 86750 ####[facility],[address] [place] [address] 43154 MONOS % 10.9 % High 0.0 - 10.0 [facility] Comment on above: Performed By: #### 2 99191 ####[facility],[address] [place] [address] 14799 Morphology Stan (Bld) [Interp] N/A Normal [facility] Comment on above: Performed By: #### 2 57733 ####[facility],[address] [place] [address] 30289 Neut # 8.65 x10EE3/UL High 1.50 - 7.10 [facility] Comment on above: Performed By: #### 2 53831 ####[facility],[address] [place] [address] 00501 Neutrophils/100 WBC (Bld) 69.4 % Normal 46.0 - 76.0 [facility] Comment on above: Performed By: #### 2 91147 ####[facility],[address] [place] [address] 41254 PLATELET 538 x10EE3/UL High 150 - 450 [facility] Comment on above: Performed By: #### 2 05095 ####[facility],[address] [place] [address] 11945 Platelet mean volume (Bld) [Entitic vol] 8.1 fL Normal 6.6 - 10.5 [facility] Comment on above: Result Comment: AUTO MATED DIFFERENTIAL Performed By: #### 2 81180 ####[facility],[address] [place] [address] 97380 RBC 3.39 x 10EE6/UL Low 4.10 - 5.30 [facility] Comment on above: Performed By: #### 2 23684 ####[facility],[address] [place] [address] 13193 WBC 12.5 x 10EE3/UL High 4.5 - 10.8 [facility] Comment on above: Performed By: #### 2 25350 ####[facility],[address] [place] [address] 85807 CMP with eGFRon 09-24-2024 AGE 39 years Normal [facility] Comment on above: Performed By: #### 2 78302 #### [facility],[address] [place] [address] 66579 Albumin [Mass/Vol] 1.7 g/dL Low 3.4 - 5.0 [facility] Comment on above: Performed By: #### 2 70863 #### [facility],[address] [place] [address] 19009 Albumin/Globulin [Mass ratio] 0.3 {ratio} Low 0.9 - 1.6 [facility] Comment on above: Performed By: #### 2 27607 #### [facility],[address] [place] [address] 54712 ALK PHOS 144 U/L High 46 - 116 [facility] Comment on above: Performed By: #### 2 56478 #### [facility],[address] [place] [address] 81735 ALT [Catalytic activity/Vol] 90 U/L High 16 - 63 [facility] Comment on above: Performed By: #### 2 40786 #### [facility],[address] [place] [address] 11929 Anion gap [Moles/Vol] 13 mmol/L Normal 10 - 20 [facility] Comment on above: Performed By: #### 2 55560 #### [facility],[address] [place] [address] 83526 AST [Catalytic activity/Vol] 40 U/L High 13 - 39 [facility] Comment on above: Performed By: #### 2 68210 #### [facility],[address] [place] [address] 40633 B/C RATIO 22 ratio Normal 0 - 30 [facility] Comment on above: Performed By: #### 2 84327 #### [facility],[address] [place] [address] 21742 Bilirubin [Mass/Vol] 0.5 mg/dL Normal 0.2 - 1.0 [facility] Comment on above: Performed By: #### 2 93252 #### [facility],[address] [place] [address] 25044 Calcium [Mass/Vol] 8.1 mg/dL Low 8.5 - 10.1 [facility] Comment on above: Performed By: #### 2 57024 #### [facility],[address] [place] [address] 07737 Chloride [Moles/Vol] 101 mmol/L Normal 98 - 107 [facility] Comment on above: Performed By: #### 2 21895 #### [facility],[address] [place] [address] 20225 CMP with eGFR Normal [facility] Comment on above: Result Comment: COMP REHENSIVE METABOLIC PANEL Performed By: #### 2 49283 #### [facility],[address] [place] [address] 43479 CO2 [Moles/Vol] 25.9 mmol/L Normal 21.0 - 32.0 [facility] Comment on above: Performed By: #### 2 13590 #### [facility],[address] [place] [address] 72006 Creatinine [Mass/Vol] 0.76 mg/dL Normal 0.55 - 1.02 [facility] Comment on above: Performed By: #### 2 78441 #### [facility],[address] [place] [address] 95828 GFR/1.73 sq M.predicted among non-blacks MDRD (S/P/Bld) [Vol rate/Area] mL/min/{1.73_m2} Normal 60 - 999 [facility] Comment on above: Performed By: #### 2 13684 #### [facility],[address] [place] [address] 31958 Result Comment: ACCO RDING TO THE NATIONAL KIDNEY DISEASE EDUCATION PROGRAM(NKDE), A NORMAL eGFR IS A VALUE GREATER THAN OR EQUAL TO 60 ML/MIN/1.73 SQ METERS. CHRONIC KIDNEY DISEASE: <60mL/MIN/1.73 SQ METERS KIDNEY FAILURE: <15mL/MIN/1.73 SQ METERS THIS TEST SHOULD ONLY BE USED FOR PATIENTS 18 YEARS OF AGE AND OLDER. Globulin (S) [Mass/Vol] 5.4 g/dL High 1.5 - 3.8 [facility] Comment on above: Performed By: #### 2 69537 #### [facility],[address] [place] [address] 53749 Glucose [Mass/Vol] 88 mg/dL Normal 74 - 106 [facility] Comment on above: Performed By: #### 2 35183 #### [facility],[address] [place] [address] 65341 Potassium [Moles/Vol] 3.7 mmol/L Normal 3.5 - 5.1 [facility] Comment on above: Performed By: #### 2 20872 #### [facility],[address] [place] [address] 18360 Protein [Mass/Vol] 7.1 g/dL Normal 6.4 - 8.2 [facility] Comment on above: Performed By: #### 2 98932 #### [facility],[address] [place] [address] 74501 Sodium [Moles/Vol] 136 mmol/L Normal 136 - 145 [facility] Comment on above: Performed By: #### 2 31855 #### [facility],[address] [place] [address] 81375 Urea nitrogen [Mass/Vol] 17 mg/dL Normal 7 - 18 [facility] Comment on above: Performed By: #### 2 48908 #### [facility],[address] [place] [address] MAGNESIUMon 09-24-2024 Magnesium [Mass/Vol] 1.9 mg/dL Normal 1.8 - 2.4 [facility] Comment on above: Performed By: #### 2 25401 #### [facility],[address] [place] [address] [facility] Acinetobacter michael-baumanii complex Not detected Normal Not Detected [facility] Comment on above: Performed By: #### B ANITHA #### [place] [address] Bacteroides fragilis Not detected Normal Not Detected [facility] Comment on above: Performed By: #### B ANITHA #### [place] [address] BCID Comment See Comment Normal [facility] Comment on above: Result Comment: Anti microbial resistance can occur via multiple mechanisms. A "Not Detected" result for antimicrobial resistance gene(s) does not indicate antimicrobial susceptibility. Culture identification and susceptibility results to follow. If BCID panel was negative ("Not Detected") for all targets, this does not exclude a blood stream infection. Our blood culture system detected growth. Culture identification and susceptibility testing (if appropriate) to follow. Performed By: #### B ANITHA #### [place] [address] Mary Ann albicans Not detected Normal Not Detected [facility] Comment on above: Performed By: #### B ANITHA #### [place] [address] Mary Ann auris Not detected Normal Not Detected [facility] Comment on above: Performed By: #### B ANITHA #### [place] [address] Mary Ann glabrata Not detected Normal Not Detected [facility] Comment on above: Performed By: #### B ANITHA #### [place] [address] Mary Ann krusei Not detected Normal Not Detected [facility] Comment on above: Performed By: #### B ANITHA #### [place] [address] [place] [address] Mary Ann parapsilosis Not detected Normal Not Detected [facility] Comment on above: Performed By: #### B ANITHA #### [place] [address] [place] [address] Mary Ann tropicalis Not detected Normal Not Detected [facility] Comment on above: Performed By: #### B ANITHA #### [place] [address] [place] [address] Cryptococcus neoformans-gattii Not detected Normal Not Detected [facility] Comment on above: Performed By: #### B ANITHA #### [place] [address] [place] [address] CTX-M (ESBL) Not Applicable Normal Not Detected [facility] Comment on above: Performed By: #### B ANITHA #### [place] [address] [place] [address] E. Coli Not detected Normal Not Detected [facility] Comment on above: Performed By: #### B ANITHA #### [place] [address] [place] [address] Enterobacter cloacae Complex Not detected Normal Not Detected [facility] Comment on above: Performed By: #### B ANITHA #### [place] [address] [place] [address] Enterobacterales Not detected Normal Not Detected [facility] Comment on above: Performed By: #### B ANITHA #### [place] [address] Enterococcus faecalis Not detected Normal Not Detected [facility] Comment on above: Performed By: #### B ANITHA #### [place] [address] [place] [address] Enterococcus faecium Not detected Normal Not Detected [facility] Comment on above: Performed By: #### B ANITHA #### [place] [address] [place] [address] Haemophilus influenzae Not detected Normal Not Detected [facility] Comment on above: Performed By: #### B ANITHA #### [place] [address] [place] [address] IMP (Carbapenemase) Not Applicable Normal Not Detected [facility] Comment on above: Performed By: #### B ANITHA #### [place] [address] [place], [place] [id number] Klebsiella aerogenes Not detected Normal Not Detected [facility] Comment on above: Performed By: #### B ANITHA #### [place] [address] [place] [address] Klebsiella oxytoca Not detected Normal Not Detected [facility] Comment on above: Performed By: #### B ANITHA #### [place] [address] [place] [address] Klebsiella pneumoniae group Not detected Normal Not Detected [facility] Comment on above: Performed By: #### B ANITHA #### [place] [address] KPC (Carbapenemase) Not Applicable Normal Not Detected [facility] Comment on above: Performed By: #### B ANITHA #### [place] [address] Listeria monocytogenes Not detected Normal Not Detected [facility] Comment on above: Performed By: #### B ANITHA #### [place] [address] MCR-1 (Colistin Resistance) Not Applicable Normal Not Detected [facility] Comment on above: Performed By: #### B ANITHA #### [place] [id number] Mec A/C Detected Abnormal Not Detected [facility] Comment on above: Performed By: #### B ANITHA #### [place] [address] Mec A/C-MREJ (MRSA) Not Applicable Normal Not Detected [facility] Comment on above: Performed By: #### B ANITHA #### [place] [address] [place] [address] NDM (Carbapenemase) Not Applicable Normal Not Detected [facility] Comment on above: Performed By: #### B ANITHA #### [place] [address] [place], [place] [id number] Neisseria meningitidis (Encapsalated) Not detected Normal Not Detected [facility] Comment on above: Performed By: #### B ANITHA #### [address] [address] OXA-48 like (Carbapenemase) Not Applicable Normal Not Detected [facility] Comment on above: Performed By: #### B ANITHA #### [place] [address] Proteus Not detected Normal Not Detected [facility] Comment on above: Performed By: #### B ANITHA #### [place] [address] Pseudomonas aeruginosa Not detected Normal Not Detected [facility] Comment on above: Performed By: #### B ANITHA #### [place] [address] S. agalactiae Org specific cx Ql (Vag fld) Not detected Normal Not Detected [facility] Comment on above: Performed By: #### B ANITHA #### [place] [address] Salmonella species Not detected Normal Not Detected [facility] Comment on above: Performed By: #### B ANITHA #### [place] [address] Serratia marcescens Not detected Normal Not Detected [facility] Comment on above: Performed By: #### B ANITHA #### [place] [address] Staphylococcus Detected Abnormal Not Detected [facility] Comment on above: Performed By: #### B ANITHA #### [place] [address] Staphylococcus aureus Not detected Normal Not Detected [facility] Comment on above: Result Comment: If S taphylococcus aureus is "Detected", an Infectious Disease physician consult is required on identification. Performed By: #### B ANITHA #### [place] [address] Staphylococcus epidermidis Detected Abnormal Not Detected [facility] Comment on above: Performed By: #### B ANITHA #### [place] [address] Staphylococcus lugdunensis Not detected Normal Not Detected [facility] Comment on above: Performed By: #### B ANITHA #### [facility] [address] [place], [place] [address] Stenotrophomonas maltophilia Not detected Normal Not Detected [facility] Comment on above: Performed By: #### B ANITHA #### [place] [address] [place] [address] Streptococcus Not detected Normal Not Detected [facility] Comment on above: Performed By: #### B ANITHA #### [place] [address] [place] [address] Streptococcus pneumoniae Not detected Normal Not Detected [facility] Comment on above: Performed By: #### B ANITHA #### [place] [address] [place] [address] Streptococcus pyogenes Not detected Normal Not Detected [facility] Comment on above: Performed By: #### B ANITHA #### [place] [address] Van A/B Not Applicable Normal Not Detected [facility] Comment on above: Performed By: #### B ANITHA #### [place] [address] VIM (Carbapenemase) Not Applicable Normal Not Detected [facility] Comment on above: Performed By: #### B ANITHA #### [place] [address] CULTURE CATHETER TIP [AULTMA N]on 09-23-2024 CULTURE CATHETER TIP [IRASEMA] CULTURE CATHETER TIP [IRASEMA] _CATHETER TIP CULTURE_ GO TO [employer] REPORTS AND ATTACHMENTS FOR SCANNED REPORT 09/28/24.1302.DNP.COMPLETE Normal [facility] Comment on above: Performed By: #### 2 27705 #### [facility],[address] [place], [place] [address] CULTURE BLOOD [IRASEMA]on Microscopic examination of blood, culture CULTURE BLOOD [IRASEMA] _BLOOD CULTURE_ GO TO CPSI REPORTS AND ATTACHMENTS FOR SCANNED REPORT 09/28/24.1302.DNP.COMPLETE Normal [facility] Comment on above: Performed By: #### 2 13755 #### [facility],[address] [place], [place] [address] Microscopic examination of blood, culture CULTURE BLOOD [IRASEMA] _BLOOD CULTURE_ GO TO CPSI REPORTS AND ATTACHMENTS FOR SCANNED REPORT 09/28/24.1301.DNP.COMPLETE Normal [facility] Comment on above: Performed By: #### 2 87339 #### [facility],[address] [place] [address] URINALYSISon 09-21-2024 Bilirubin Ql (U) Negative Normal NORMAL: NEGATIVE [facility] Comment on above: Performed By: #### 2 93442 #### [facility],[address] [place] [address] Clarity (U) clear Normal NORMAL: CLEAR [facility] Comment on above: Performed By: #### 2 86251 #### [facility],[address] [place] [address] Color (U) yellow Normal NORMAL: YELLOW [facility] Comment on above: Performed By: #### 2 44113 #### [facility],[address] [place] [address] Glucose Ql (U) NORM Normal NORMAL: NORMAL [facility] Comment on above: Performed By: #### 2 51386 #### [facility],[address] [place] [address] Hemoglobin Ql (U) Negative Normal NORMAL: NEGATIVE [facility] Comment on above: Performed By: #### 2 47566 #### [facility],[address] [place] [address] Ketone Negative Normal NORMAL: NEGATIVE [facility] Comment on above: Performed By: #### 2 43725 #### [facility],[address] [place] [address] Leukocytes Negative Normal NORMAL: NEGATIVE [facility] Comment on above: Performed By: #### 2 68014 #### [facility],[address] [place] [address] Nitrite Ql (U) Negative Normal NORMAL: NEGATIVE [facility] Comment on above: Performed By: #### 2 85793 #### [facility],[address] [place] [address] pH (U) 6.5 [pH] Normal NORMAL: 5.0-8.0 [facility] Comment on above: Performed By: #### 2 37563 #### [facility],[address] [place] [address] Protein Ql (U) 15 Abnormal NORMAL: NEGATIVE [facility] Comment on above: Performed By: #### 2 69167 #### [facility],[address] [place] [address] Sp [place] 1.020 Normal NORMAL: 1.010-1.030 [facility] Comment on above: Performed By: #### 2 88567 #### [facility],[address] [place] [address] Specimen Type Clean catch Normal [facility] Comment on above: Performed By: #### 2 52964 #### [facility],[address] [place] [address] Urinalysis dipstick W Reflex Microscopic panel (U) NOT INDICATED Normal [facility] Comment on above: Performed By: #### 2 73288 #### [facility],[address] [place] [address] Urobilinog NORM Normal NORMAL: NORMAL [facility] Comment on above: Performed By: #### 2 16026 #### [facility],[address] [place], [place] [address] URINE CULTURE [CCL]on 2024 Bacteria identified Cx Nom (U) URCUL See Results Below See Below CULTURE, URINE MIXED MICROBIOTA 10,000 -<50,000 CFU/ml Mixed microbiota No further workup. Mixed microbiota can be due to???urine???contamination with s SOURCE: Urine (Nonspecific) [facility] [address] [place] [address] Jaison Lema III, M.D. [id number] Normal [facility] Comment on above: Performed By: #### 2 51552 #### [facility],[address] [place] [address] CBC + DIFFon 09-20-2024 Baso # 0.06 x10EE3/UL Normal 0.00 - 0.10 [facility] Comment on above: Performed By: #### 2 11678 ####[facility],[address] [place] [address] Basophils/100 WBC (Bld) 0.4 % Normal 0.0 - 2.0 [facility] Comment on above: Performed By: #### 2 55388 ####[facility],[address] [place] [address] Basophils/100 WBC (Bld) 1.0 % Normal 0.0 - 2.0 [facility] Comment on above: Performed By: #### 2 38362 ####[facility],[address] [place] [address] CBC + DIFF Normal [facility] Comment on above: Result Comment: CBC- COMPLETE BLOOD COUNT Performed By: #### 2 99074 ####[facility],[address] [place] [address] CELL COUNT 100 Normal [facility] Comment on above: Performed By: #### 2 58910 ####[facility],[address] [place] [address] EO 1.0 % Normal 0.0 - 7.0 [facility] Comment on above: Performed By: #### 2 33930 ####[facility],[address] [place] [address] EO # 0.22 x10EE3/UL Normal 0.00 - 0.50 [facility] Comment on above: Performed By: #### 2 29567 ####[facility],[address] [place] [address] Eosinophils/100 WBC (Bld) 1.4 % Normal 0.0 - 7.0 [facility] Comment on above: Performed By: #### 2 40666 ####[facility],[address] [place] [address] Erythrocyte distribution width (RBC) [Ratio] 18.0 % High 12.0 - 15.6 [facility] Comment on above: Performed By: #### 2 39235 ####[facility],[address] [place] [address] Hematocrit (Bld) [Volume fraction] 28.2 % Low 34.0 - 46.0 [facility] Comment on above: Performed By: #### 2 91460 ####[facility],[address] [place] [address] Hemoglobin (Bld) [Mass/Vol] 9.1 g/dL Low 12.0 - 16.0 [facility] Comment on above: Performed By: #### 2 15024 ####[facility],[address] [place] [address] Lymph # 2.04 x10EE3/UL Normal 0.80 - 2.80 [facility] Comment on above: Performed By: #### 2 71047 ####[facility],[address] [place] [address] Lymphocytes/100 WBC (Bld) 12.6 % Low 20.0 - 45.0 [facility] Comment on above: Performed By: #### 2 29369 ####[facility],[address] [place], [place] [address] Lymphocytes/100 WBC (Bld) 13 % Low 20 - 45 [facility] Comment on above: Performed By: #### 2 89998 ####[facility],[address] [place] [address] MANUAL DIFF SEE BELOW Normal [facility] Comment on above: Performed By: #### 2 29470 ####[facility],[address] [place], [place] [address] MCH (RBC) [Entitic mass] 26 pg Low 27 - 33 [facility] Comment on above: Performed By: #### 2 77013 ####[facility],[address] [place] [address] MCHC 32 X10 3 Normal 32 - 36 [facility] Comment on above: Performed By: #### 2 78703 ####[facility],[address] [place] [address] MCV (RBC) [Entitic vol] 80 fL Normal 80 - 99 [facility] Comment on above: Performed By: #### 2 68283 ####[facility],[address] [place] [address] Mccreary # 1.34 x10EE3/UL High 0.20 - 1.00 [facility] Comment on above: Performed By: #### 2 49355 ####[facility],[address] [place] [address] MONOS 4 % Normal 0 - 10 [facility] Comment on above: Performed By: #### 2 63156 ####[facility],[address] [place] [address] MONOS % 8.3 % Normal 0.0 - 10.0 [facility] Comment on above: Performed By: #### 2 27287 ####[facility],[address] [place] [address] Morphology Stan (Bld) [Interp] REVIEWED Normal [facility] Comment on above: Performed By: #### 2 95169 ####[place] [address] Neut # 12.46 x10EE3/UL High 1.50 - 7.10 [facility] Comment on above: Performed By: #### 2 87281 ####[place] [address] Neutrophils/100 WBC (Bld) 77.3 % High 46.0 - 76.0 [facility] Comment on above: Performed By: #### 2 61566 ####[facility],[address] [place] [address] NRBC 1 /100 Normal [facility] Comment on above: Performed By: #### 2 74906 ####[facility],[address] [place] [address] PLATELET 422 x10EE3/UL Normal 150 - 450 [facility] Comment on above: Performed By: #### 2 82404 ####[facility],[address] [place] [address] 17111 Platelet mean volume (Bld) [Entitic vol] 8.8 fL Normal 6.6 - 10.5 [facility] Comment on above: Result Comment: AUTO MATED DIFFERENTIAL Performed By: #### 2 30850 ####[facility],[address] [place] [address] 26537 RBC 3.52 x 10EE6/UL Low 4.10 - 5.30 [facility] Comment on above: Performed By: #### 2 27671 ####[facility],[address] [place] [address] 41749 SEGS 81 % High 46 - 76 [facility] Comment on above: Performed By: #### 2 40241 ####[facility],[address] [place] [address] 30987 WBC 16.1 x 10EE3/UL High 4.5 - 10.8 [facility] Comment on above: Performed By: #### 2 05165 ####[facility],[address] [place] [address]671 CMP with eGFRon 09-20-2024 AGE 39 years Normal [facility] Comment on above: Performed By: #### 2 77117 #### [facility],[address] [place] [address]2460 Albumin [Mass/Vol] 1.6 g/dL Low 3.4 - 5.0 [facility] Comment on above: Performed By: #### 2 59828 #### [facility],[address] [place] [address]45 Albumin/Globulin [Mass ratio] 0.3 {ratio} Low 0.9 - 1.6 [facility] Comment on above: Performed By: #### 2 94007 #### [facility],[address] [place] [address] 92993 ALK PHOS 136 U/L High 46 - 116 [facility] Comment on above: Performed By: #### 2 67001 #### [facility],[address] [place] [address] 60087 ALT [Catalytic activity/Vol] 80 U/L High 16 - 63 [facility] Comment on above: Performed By: #### 2 42930 #### [facility],[address] [place] [address] 84732 Anion gap [Moles/Vol] 10 mmol/L Normal 10 - 20 [facility] Comment on above: Performed By: #### 2 87198 #### [facility],[address] [place] [address] 92495 AST [Catalytic activity/Vol] 34 U/L Normal 13 - 39 [facility] Comment on above: Performed By: #### 2 49075 #### [facility],[address] [place] [address] 45042 B/C RATIO 15 ratio Normal 0 - 30 [facility] Comment on above: Performed By: #### 2 60426 #### [facility],[address] [place] [address]307 Bilirubin [Mass/Vol] 0.6 mg/dL Normal 0.2 - 1.0 [facility] Comment on above: Performed By: #### 2 95087 #### [facility],[address] [place] [address] 95934 Calcium [Mass/Vol] 8.1 mg/dL Low 8.5 - 10.1 [facility] Comment on above: Performed By: #### 2 33661 #### [facility],[address] [place], [place] [address] Chloride [Moles/Vol] 101 mmol/L Normal 98 - 107 [facility] Comment on above: Performed By: #### 2 59831 #### [facility],[address] [place] [address] CMP with eGFR Normal [facility] Comment on above: Result Comment: COMP REHENSIVE METABOLIC PANEL Performed By: #### 2 55551 #### [place] [address] CO2 [Moles/Vol] 29.0 mmol/L Normal 21.0 - 32.0 [facility] Comment on above: Performed By: #### 2 07491 #### [place] [address] Creatinine [Mass/Vol] 0.80 mg/dL Normal 0.55 - 1.02 [facility] Comment on above: Performed By: #### 2 65957 #### [place] [address] GFR/1.73 sq M.predicted among non-blacks MDRD (S/P/Bld) [Vol rate/Area] mL/min/{1.73_m2} Normal 60 - 999 [facility] Comment on above: Performed By: #### 2 07455 #### [place] [address] Result Comment: ACCO RDING TO THE NATIONAL KIDNEY DISEASE EDUCATION PROGRAM(NKDE), A NORMAL eGFR IS A VALUE GREATER THAN OR EQUAL TO 60 ML/MIN/1.73 SQ METERS. CHRONIC KIDNEY DISEASE: <60mL/MIN/1.73 SQ METERS KIDNEY FAILURE: <15mL/MIN/1.73 SQ METERS THIS TEST SHOULD ONLY BE USED FOR PATIENTS 18 YEARS OF AGE AND OLDER. Globulin (S) [Mass/Vol] 5.3 g/dL High 1.5 - 3.8 [facility] Comment on above: Performed By: #### 2 44630 #### [facility],[address] [place] [address]24 Glucose [Mass/Vol] 98 mg/dL Normal 74 - 106 [facility] Comment on above: Performed By: #### 2 95396 #### [facility],[address] [place], [place] [address] Potassium [Moles/Vol] 4.2 mmol/L Normal 3.5 - 5.1 [facility] Comment on above: Performed By: #### 2 24340 #### [facility],[address] [place] [address]4570 Protein [Mass/Vol] 6.9 g/dL Normal 6.4 - 8.2 [facility] Comment on above: Performed By: #### 2 62365 #### [facility],[address] [place], [place] [address] Sodium [Moles/Vol] 136 mmol/L Normal 136 - 145 [facility] Comment on above: Performed By: #### 2 78086 #### [facility],[address] [place], [place] [address] Urea nitrogen [Mass/Vol] 12 mg/dL Normal 7 - 18 [facility] Comment on above: Performed By: #### 2 04990 #### [place] [id number] MAGNESIUMon 09-20-2024 Magnesium [Mass/Vol] 1.7 mg/dL Low 1.8 - 2.4 [facility] Comment on above: Performed By: #### 2 22818 ####[facility],[address] [place] [address]19 BCIDon 09-18-2024 Acinetobacter michael-baumanii complex Not detected Normal Not Detected [facility] Comment on above: Order Comment: [id number] aer Performed By: #### B ANITHA #### [place] [address] Bacteroides fragilis Not detected Normal Not Detected [facility] Comment on above: Order Comment: aer Performed By: #### B ANITHA #### [place] [address] BCID Comment See Comment Normal [facility] Comment on above: Order Comment: aer Result Comment: Anti microbial resistance can occur via multiple mechanisms. A "Not Detected" result for antimicrobial resistance gene(s) does not indicate antimicrobial susceptibility. Culture identification and susceptibility results to follow. If BCID panel was negative ("Not Detected") for all targets, this does not exclude a blood stream infection. Our blood culture system detected growth. Culture identification and susceptibility testing (if appropriate) to follow. Performed By: #### B ANITHA #### [place] [address] Mary Ann albicans Not detected Normal Not Detected [facility] Comment on above: Order Comment: aer Performed By: #### B ANITHA #### [place] [address] Mary Ann auris Not detected Normal Not Detected [facility] Comment on above: Order Comment: aer Performed By: #### B ANITHA #### [place] [address] Mary Ann glabrata Not detected Normal Not Detected [facility] Comment on above: Order Comment: aer Performed By: #### B ANITHA #### [place] [address] [place] krusei Not detected Normal Not Detected [facility] Comment on above: Order Comment: aer Performed By: #### B ANITHA #### [place] [address] Mary Ann parapsilosis Not detected Normal Not Detected [facility] Comment on above: Order Comment: aer Performed By: #### B ANITHA #### [facility] [address] [place], [place] [address] Mary Ann tropicalis Not detected Normal Not Detected [facility] Comment on above: Order Comment: aer Performed By: #### B ANITHA #### [place] [address] [place], [place] [address] Cryptococcus neoformans-gattii Not detected Normal Not Detected [facility] Comment on above: Order Comment: aer Performed By: #### B ANITHA #### [place] [address] CTX-M (ESBL) Not Applicable Normal Not Detected [facility] Comment on above: Order Comment: aer Performed By: #### B ANITHA #### [place] [address] E. Coli Not detected Normal Not Detected [facility] Comment on above: Order Comment: aer Performed By: #### B ANITHA #### [place] [address] Enterobacter cloacae Complex Not detected Normal Not Detected [facility] Comment on above: Order Comment: aer Performed By: #### B ANITHA #### [place] [address] Enterobacterales Not detected Normal Not Detected [facility] Comment on above: Order Comment: aer Performed By: #### B ANITHA #### [place] [address] Enterococcus faecalis Not detected Normal Not Detected [facility] Comment on above: Order Comment: aer Performed By: #### B ANITHA #### [place] [address] Enterococcus faecium Not detected Normal Not Detected [facility] Comment on above: Order Comment: aer Performed By: #### B ANITHA #### [place] [id number] Haemophilus influenzae Not detected Normal Not Detected [facility] Comment on above: Order Comment: aer Performed By: #### B ANITHA #### [place] [address] [place] [address] IMP (Carbapenemase) Not Applicable Normal Not Detected [facility] Comment on above: Order Comment: aer Performed By: #### B ANITHA #### [place] [address] Klebsiella aerogenes Not detected Normal Not Detected [facility] Comment on above: Order Comment: aer Performed By: #### B ANITHA #### [place] [address] Klebsiella oxytoca Not detected Normal Not Detected [facility] Comment on above: Order Comment: aer Performed By: #### B ANITHA #### [place] [address] Klebsiella pneumoniae group Not detected Normal Not Detected [facility] Comment on above: Order Comment: aer Performed By: #### B ANITHA #### [place] [address] KPC (Carbapenemase) Not Applicable Normal Not Detected [facility] Comment on above: Order Comment: aer Performed By: #### B ANITHA #### [place] [address] Listeria monocytogenes Not detected Normal Not Detected [facility] Comment on above: Order Comment: aer Performed By: #### B ANITHA #### [place] [address] MCR-1 (Colistin Resistance) Not Applicable Normal Not Detected [facility] Comment on above: Order Comment: aer Performed By: #### B ANITHA #### [place] [address] Mec A/C Detected Abnormal Not Detected [facility] Comment on above: Order Comment: aer Performed By: #### B ANITHA #### [place] [address] Mec A/C-MREJ (MRSA) Not Applicable Normal Not Detected [facility] Comment on above: Order Comment: aer Performed By: #### B ANITHA #### [place] [address] NDM (Carbapenemase) Not Applicable Normal Not Detected [facility] Comment on above: Order Comment: aer Performed By: #### B ANITHA #### [place] [address] Neisseria meningitidis (Encapsalated) Not detected Normal Not Detected [facility] Comment on above: Order Comment: aer Performed By: #### B ANITHA #### [place] [address] OXA-48 like (Carbapenemase) Not Applicable Normal Not Detected [facility] Comment on above: Order Comment: aer Performed By: #### B ANITHA #### [place] [address] Proteus Not detected Normal Not Detected [facility] Comment on above: Order Comment: aer Performed By: #### B ANITHA #### [place] [address] Pseudomonas aeruginosa Not detected Normal Not Detected [facility] Comment on above: Order Comment: aer Performed By: #### B ANITHA #### [place] [address] S. agalactiae Org specific cx Ql (Vag fld) Not detected Normal Not Detected [facility] Comment on above: Order Comment: aer Performed By: #### B ANITHA #### [place] [address] Salmonella species Not detected Normal Not Detected [facility] Comment on above: Order Comment: aer Performed By: #### B ANITHA #### [place] [address] Serratia marcescens Not detected Normal Not Detected [facility] Comment on above: Order Comment: [id number] aer Performed By: #### B ANITHA #### [place] [address] [place] [address] Staphylococcus Detected Abnormal Not Detected [facility] Comment on above: Order Comment: aer Performed By: #### B ANITHA #### [place] [address] [place] [address] Staphylococcus aureus Not detected Normal Not Detected [facility] Comment on above: Order Comment: aer Result Comment: If S taphylococcus aureus is "Detected", an Infectious Disease physician consult is required on identification. Performed By: #### B ANITHA #### [place] [address] Staphylococcus epidermidis Detected Abnormal Not Detected [facility] Comment on above: Order Comment: aer Performed By: #### B ANITHA #### [place] [address] Staphylococcus lugdunensis Not detected Normal Not Detected [facility] Comment on above: Order Comment: aer Performed By: #### B ANITHA #### [place] [address] Stenotrophomonas maltophilia Not detected Normal Not Detected [facility] Comment on above: Order Comment: aer Performed By: #### B ANITHA #### [place] [address] Streptococcus Not detected Normal Not Detected [facility] Comment on above: Order Comment: aer Performed By: #### B ANITHA #### [address] [address] Streptococcus pneumoniae Not detected Normal Not Detected [facility] Comment on above: Order Comment: aer Performed By: #### B ANITHA #### [place] [id number] Streptococcus pyogenes Not detected Normal Not Detected [facility] Comment on above: Order Comment: aer Performed By: #### B ANITHA #### [address] [address] Van A/B Not Applicable Normal Not Detected [facility] Comment on above: Order Comment: aer Performed By: #### B ANITHA #### [place] [address] VIM (Carbapenemase) Not Applicable Normal Not Detected [facility] Comment on above: Order Comment: aer Performed By: #### B ANITHA #### [place] [address] C-REACTIVE PROTEINon 025 CRP 6.50 mg/dl High 0.00 - 0.90 [facility] Comment on above: Performed By: #### 2 97105 #### [facility],[address] [place] [address] CBC + DIFFon 09-17-2024 Baso # 0.02 x10EE3/UL Normal 0.00 - 0.10 [facility] Comment on above: Performed By: #### 2 34047 ####[facility],[address] [place] [address] Basophils/100 WBC (Bld) 0.2 % Normal 0.0 - 2.0 [facility] Comment on above: Performed By: #### 2 21207 ####[facility],[address] [place] [address]66 CBC + DIFF Normal [facility] Comment on above: Result Comment: CBC- COMPLETE BLOOD COUNT Performed By: #### 2 33087 ####[facility],[address] [place] [address] EO # 0.05 x10EE3/UL Normal 0.00 - 0.50 [facility] Comment on above: Performed By: #### 2 28727 ####[facility],[address] [place] [address] Eosinophils/100 WBC (Bld) 0.5 % Normal 0.0 - 7.0 [facility] Comment on above: Performed By: #### 2 71393 ####[facility],[address] [place], [place] [address] Erythrocyte distribution width (RBC) [Ratio] 17.2 % High 12.0 - 15.6 [facility] Comment on above: Performed By: #### 2 37310 ####[facility],[address] [place], [place] [address] Hematocrit (Bld) [Volume fraction] 27.0 % Low 34.0 - 46.0 [facility] Comment on above: Performed By: #### 2 40552 ####[facility],[address] [place] [address] Hemoglobin (Bld) [Mass/Vol] 9.1 g/dL Low 12.0 - 16.0 [facility] Comment on above: Performed By: #### 2 49917 ####[facility],[address] [place] [address] Lymph # 1.13 x10EE3/UL Normal 0.80 - 2.80 [facility] Comment on above: Performed By: #### 2 85692 ####[facility],[address] [place], [place] [address] Lymphocytes/100 WBC (Bld) 10.8 % Low 20.0 - 45.0 [facility] Comment on above: Performed By: #### 2 15476 ####[facility],[address] [place], [place] [address] MANUAL DIFF N/A Normal [facility] Comment on above: Performed By: #### 2 20282 ####[facility],[address] [place] [address]37 MCH (RBC) [Entitic mass] 27 pg Normal 27 - 33 [facility] Comment on above: Performed By: #### 2 10794 ####[facility],[address] [place] [address] MCHC 34 X10 3 Normal 32 - 36 [facility] Comment on above: Performed By: #### 2 80671 ####[facility],[address] [place] [address] MCV (RBC) [Entitic vol] 80 fL Normal 80 - 99 [facility] Comment on above: Performed By: #### 2 78301 ####[facility],[address] [place] [address] Mccreary # 0.95 x10EE3/UL Normal 0.20 - 1.00 [facility] Comment on above: Performed By: #### 2 25134 ####[facility],[address] [place] [address] MONOS % 9.1 % Normal 0.0 - 10.0 [facility] Comment on above: Performed By: #### 2 68236 ####[facility],[address] [place] [address] Morphology Stan (Bld) [Interp] N/A Normal [facility] Comment on above: Performed By: #### 2 02960 ####[facility],[address] [place] [address] Neut # 8.26 x10EE3/UL High 1.50 - 7.10 [facility] Comment on above: Performed By: #### 2 30346 ####[facility],[address] [place] [address] Neutrophils/100 WBC (Bld) 79.4 % High 46.0 - 76.0 [facility] Comment on above: Performed By: #### 2 34899 ####[facility],[address] [place] [address] PLATELET 225 x10EE3/UL Normal 150 - 450 [facility] Comment on above: Performed By: #### 2 70688 ####[facility],[address] [place] [address] Platelet mean volume (Bld) [Entitic vol] 9.1 fL Normal 6.6 - 10.5 [facility] Comment on above: Result Comment: AUTO MATED DIFFERENTIAL Performed By: #### 2 21637 ####[facility],[address] [place] [address] 17768 RBC 3.39 x 10EE6/UL Low 4.10 - 5.30 [facility] Comment on above: Performed By: #### 2 93807 ####[facility],[address] [place] [address] WBC 10.4 x 10EE3/UL Normal 4.5 - 10.8 [facility] Comment on above: Performed By: #### 2 95744 ####[facility],[address] [place] [address] CHEST 1 VIEWon 09-17-2024 CHEST [address] [address] Patient: DALY EVANS Phone#: : 1985 Age: 39 Gender: F Pt. Type: ER Account: [id number] Location: [facility] Ordering: DONTE MEZA Exam Date: 09/17/2024/6:23 Family Phys: MAGGIE INDY Charge Code: 516117 Physician: [place] Order #: [id number] Dose#: PROCEDURE: X-RAY CHEST 1 VIEW COMPARISON: [...] Berry MD on 09/17/2024 at 10:53 Normal [facility] CMP with eGFRon 09-17-2024 AGE 39 years Normal [facility] Comment on above: Performed By: #### 2 88961 #### [facility],[address] [place] [address] Albumin [Mass/Vol] 1.9 g/dL Low 3.4 - 5.0 [facility] Comment on above: Performed By: #### 2 48267 #### [facility],[address] [place] [address] Albumin/Globulin [Mass ratio] 0.4 {ratio} Low 0.9 - 1.6 [facility] Comment on above: Performed By: #### 2 67393 #### [facility],[address] [place] [address] ALK PHOS 82 U/L Normal 46 - 116 [facility] Comment on above: Performed By: #### 2 08846 #### [facility],[address] [place] [address] 30793 ALT [Catalytic activity/Vol] 68 U/L High 16 - 63 [facility] Comment on above: Performed By: #### 2 58332 #### [facility],[address] [place] [address] Anion gap [Moles/Vol] 11 mmol/L Normal 10 - 20 [facility] Comment on above: Performed By: #### 2 21242 #### [facility],[address] [place] [address]3927 AST [Catalytic activity/Vol] 48 U/L High 13 - 39 [facility] Comment on above: Performed By: #### 2 66740 #### [facility],[address] [place] [address] B/C RATIO 22 ratio Normal 0 - 30 [facility] Comment on above: Performed By: #### 2 23431 #### [facility],[address] [place] [address] Bilirubin [Mass/Vol] 0.4 mg/dL Normal 0.2 - 1.0 [facility] Comment on above: Performed By: #### 2 22285 #### [facility],[address] [place] [address] Calcium [Mass/Vol] 8.1 mg/dL Low 8.5 - 10.1 [facility] Comment on above: Performed By: #### 2 04425 #### [facility],[address] [place] [address]652 Chloride [Moles/Vol] 101 mmol/L Normal 98 - 107 [facility] Comment on above: Performed By: #### 2 29972 #### [facility],[address] [place] [address] CMP with eGFR Normal [facility] Comment on above: Result Comment: COMP REHENSIVE METABOLIC PANEL Performed By: #### 2 69352 #### [facility],[address] [place] [address]349 CO2 [Moles/Vol] 27.6 mmol/L Normal 21.0 - 32.0 [facility] Comment on above: Performed By: #### 2 47213 #### [facility],[address] [place] [address]450 Creatinine [Mass/Vol] 0.90 mg/dL Normal 0.55 - 1.02 [facility] Comment on above: Performed By: #### 2 74114 #### [facility],[address] [place] [address] GFR/1.73 sq M.predicted among non-blacks MDRD (S/P/Bld) [Vol rate/Area] mL/min/{1.73_m2} Normal 60 - 999 [facility] Comment on above: Performed By: #### 2 01544 #### [facility],[address] [place] [address] Result Comment: ACCO RDING TO THE NATIONAL KIDNEY DISEASE EDUCATION PROGRAM(NKDE), A NORMAL eGFR IS A VALUE GREATER THAN OR EQUAL TO 60 ML/MIN/1.73 SQ METERS. CHRONIC KIDNEY DISEASE: <60mL/MIN/1.73 SQ METERS KIDNEY FAILURE: <15mL/MIN/1.73 SQ METERS THIS TEST SHOULD ONLY BE USED FOR PATIENTS 18 YEARS OF AGE AND OLDER. Globulin (S) [Mass/Vol] 5.2 g/dL High 1.5 - 3.8 [facility] Comment on above: Performed By: #### 2 40776 #### [facility],[address] [place] [address] Glucose [Mass/Vol] 139 mg/dL High 74 - 106 [facility] Comment on above: Performed By: #### 2 83539 #### [facility],[address] [place] [address]343 Potassium [Moles/Vol] 3.2 mmol/L Low 3.5 - 5.1 [facility] Comment on above: Performed By: #### 2 99083 #### [facility],[address] [place] [address]338 Protein [Mass/Vol] 7.1 g/dL Normal 6.4 - 8.2 [facility] Comment on above: Performed By: #### 2 32561 #### [facility],[address] [place] [address] Sodium [Moles/Vol] 136 mmol/L Normal 136 - 145 [facility] Comment on above: Performed By: #### 2 01930 #### [facility],[address] [place] [address] 27503 Urea nitrogen [Mass/Vol] 20 mg/dL High 7 - 18 [facility] Comment on above: Performed By: #### 2 39558 #### [facility],[address] [place] [address] CORONAVIRUS (SARS) ANTIGEN T ESTon 09-17-2024 EXTERNAL QC DONE? YES Normal [facility] Comment on above: Performed By: #### 2 37971 #### [facility],[address] [place] [address] INTERNAL CONTROL PASS Normal [facility] Comment on above: Performed By: #### 2 49091 #### [facility],[address] [place] [address] 95417 SARS ANTIGEN Negative Normal NORMAL: NEGATIVE [facility] Comment on above: Performed By: #### 2 32860 #### [facility],[address] [place] [address] 15168 SEND TO ? NO Normal [facility] Comment on above: Result Comment: SARS -CoV-2 THIS TEST IS BEING USED UNDER THE FDA EUA PROCEDURE. THIS ASSAY HAS BEEN VALIDATED AT [facility] FOR USE WITH NASAL AND NASOPHARYNGEAL SWAB [...] PUBLIC HEALTH AUTHORITIES. Performed By: #### 2 44846 #### [facility],[address] [place] [address] ABDOMEN/PELVIS Won 2024 CT ABDOMEN/PELVIS [address] [address] Patient: DALY EVANS Phone#: : 1985 Age: 39 Gender: F Pt. Type: ER Account: [id number] Location: 05 Ordering: DONTE MEZA Exam Date: 09/17/2024/5:25 Family Phys: MAGGIE MATASammie Charge Code: [id number] Physician: [place] Order #: [id number] Dose#: 28.4 PROCEDURE: CT ABDOMEN/PELVIS WITH CONTRAST [...] 39 Gender: F Pt. Type: ER Account: [id number] Location: 052 Ordering: DONTE MEZA Exam Date: 09/17/2024/5:25 Family Phys: MAGGIE PUTNAM Charge Code: [id number] Physician: [place] Order #: [id number] Dose#: 28.4 CONCLUSION: 1. Findings consistent with colitis. 2. Left-sided ostomy is present. Dictated by: Seda Berry MD on 09/17/2024 at 9:27 Approved by: Seda Berry MD on 09/17/2024 at 9:33 Normal [facility] CULTURE BLOOD [IRASEMA]on Microscopic examination of blood, culture CULTURE BLOOD [IRASEMA] _BLOOD CULTURE_ [facility] REPOR[facility] AND ATTACHMENTS FOR SCANNED REPORT 09/24/24.1016.DNP.COMPLETE [facility] Comment on above: Performed By: #### 2 82258 #### [facility],[address] [place] [address] Microscopic examination of blood, culture CULTURE BLOOD [[place]] _BLOOD CULTURE_ [facility] REPORTS AND ATTACHMENTS FOR SCANNED REPORT 09/21/24.1002.DNP.[facility] Comment on above: Performed By: #### 2 56427 ####[facility],[address] [place] [address] CVFLURVon 09-17-2024 FLU A PCR Negative Normal Negative [facility] Comment on above: Result Comment: [place] s [address] Performed By: #### C VFLURV #### [place] [address] FLU B PCR Negative Normal Negative [facility] Comment on above: Result Comment: [place] [address] Performed By: #### C VFLURV #### [place] [address] RSV PCR Negative Normal Negative [facility] Comment on above: Result Comment: [place] s [address] Performed By: #### C VFLURV #### [address] [address] SARS-CoV-2 (COVID-19) RNA LAUREANO+probe Ql (Unsp spec) Negative Normal Negative [facility] Comment on above: Result Comment: Note s [address] This test has been authorized by FDA [...] results. Performed By: #### C VFLURV #### [address] [address] ED MED ADMINISTRATION DETAIL on 09-17-2024 ED MED ADMINISTRATION DETAIL Business Enterprise Officer Medication Administration Record [address] [address] [id number] 09/17/2024 Patient: DALY EVANS Sex: Female : 1985 Age: 39y MEASUREMENTS: Wt: 97.5 kg, Ht/Jean-Paul: 67.0 in, BMI: 33.67 ALLERGIES: No known drug allergies Medication Ordered Medication Administration Date/Time IV NS 0.9 % 1000 05:09/17 IV NS 0.9 % 1000 mL started [...] 05:04 Tasha Schafer R.N. 1 of 2 Business Enterprise Officer Medication Ordered Medication Administration Date/Time Ondansetron IVP [...] wasted. - 06:02 Tasha Schafer R.N. HYDROmorphone 06:09/17 HYDROmorphone (Dilaudid) IVP 1 mg given via [...] and sedative warning. Verbalizes understanding. (abdominal pain 7/10). - 06:32 Tasha Schafer R.N. 2 of 2 Normal [facility] ED NURSES CLINICAL NOTEon ED NURSES CLINICAL NOTE Nurse Narrative Nurse Clinical Narrative [address] [place] [phone] 09/17/2024 Patient: DALY EVANS Sex: Female : 1985 Age: 39y Primary Insurance: [employer] [employer] Policy Number: [id number] Subscriber: Other Disposition: Discharge to Senior Living [...] on TPN with her PICC Line). Treatment SLEEP TECHNOLOGIST: (Zofran and Gabapentin). SEPSIS SCREEN: POSITIVE. SIRS [...] every AM. -- 05:01 09/17/24 EDT Aranza Deusenberry, R.N. atorvastatin 40 mg tablet: 40 mg once a day every PM. -- 05:01 09/17/24 EDT Aranza Winn R.N. pantoprazole 40 mg tablet,delayed release: once a day every AM. -- 05:09/17/24 EDT Aranza Winn R.N. NovoLIN R Regular [...] compartmental syndrome bilat legs -- 04:41 09/17/24 EDNisha Harris R.N. History 04:47 09/17/24. PAST MEDICAL [...] or Coronavirus. ABUSE ASSESSMENT: The patient answered "yes" to the question(s) "Do you feel safe in your home?" and "no" to the question(s) Are you afraid to go home?". SELF HARM ASSESSMENT: Self harm assessment was performed. The patient answered "no" to the question(s) "Have you recently felt down, depressed, or hopeless?" and "Do you have thoughts of harming or killing yourself?". FALL RISK ASSESSMENT: Fall risk assessment completed. No risk factors identif (more content not included)... Normal [facility] ED ORDER SHEET (CPOE ONLY)on 09-17-2024 ED ORDER SHEET (CPOE ONLY) Order Sheet Order Sheet [address] [id number] 09/17/2024 Patient: DALY EVANS Sex: Female : [...] Stat 04:54 09/17/2024 05:10 09/17/2024 06:07 09/17/2024 Donte Didur, DTasha Hinojosa R.N. R.N. CRP Stat Stat 04:54 09/17/2024 05:10 09/17/2024 06:07 09/17/2024 Renae Riggs Crystal Brenner, R.N. R.N. Lipase Stat Stat 04:55 09/17/2024 05:10 09/17/2024 06:07 09/17/2024 Renae Riggs Crystal Brenner, R.N. RIrene DIAGNOSTIC STUDY ORDERS Order Description Priority Entered Acknowledged Completed Chest 1V Stat Stat 04:48 09/17/2024 04:49 05:09 3 of 4 Order Sheet Donte Meza D.O. 09/17/2024 09/17/2024 Tasha Sanchez R.N. RIrene Reason for Study: Pneumonia CT ABD/PEL w Cont Stat Stat 04:48 09/17/2024 04:49 06:06 Donte Meza D.O. 09/17/2024 09/17/2024 Tasha Sanchez R.N. R.Brigid Reason for Study: Abdominal Pain STAFF ORDERS Order Description Priority Entered Acknowledged Collected Completed Vital Signs every 30 04:48 09/17/2024 04:49 09/17/2024 05:09 09/17/2024 minutes Renae Riggs Crystal Brenner, R.N. RIrene Scientific Technical Writer 04:48 09/17/2024 04:49 09/17/2024 05:09 09/17/2024 Renae Riggs Crystal Brenner, R.N. RIrene Oxygen titrate to 92% 04:48 09/17/2024 04:49 09/17/2024 05:09 09/17/2024 Renae Riggs Crystal Brenner, R.N. RIrene [Electronically signed by Donte Meza D.O. (09/17/2024 08:24 EDT)] 4 of 4 Normal [facility] ED PHYSICIAN CLINICAL REPORT on 09-17-2024 ED PHYSICIAN CLINICAL REPORT Narrative Physician Clinical Narrative [facility] [address] [place] [phone] 09/17/2024 Patient: DALY EVANS Sex: Female : 1985 Age: 39y Primary Insurance: [employer] [employer] Policy Number: [id number] Subscriber: Other Disposition: Discharge to Senior Living [...] normal EDT (more content not included)... Normal [facility] ED SUPER BILLon 09-17-2024 ED [place] [id number] [facility] [place] [phone] 09/17/2024 Patient: DALY EVANS Sex: Female : 1985 Age: 39y Facility Professional Category Item Description Code Code Quantity Fee Total Drugs Normal Saline 691104 1 $0.00 $0.00 1000cc (469028) Nurse/E/M EMERGENCY [id number] 1 $0.00 $0.00 DEPT VISIT HIGH SEVERITYFUNCJ ([id number]) Nurse/IV/IM/Infusions Hydration [id number] 3 $0.00 $0.00 additional hour (76934) Nurse/IV/IM/Infusions IVP additional [id number] 3 $0.00 $0.00 push (90472) Nurse/IV/IM/Infusions IVP initial ([id number]) [id number] 1 $0.00 $0.00 Nurse/Supplies Central Line [id number] 1 $0.00 $0.00 Dressing ([id number]) Grand $0.00 Total Providers 1 of 2 [facility] Donte Meza D.O. Chief Complaint ABDOMINAL PAIN. Principal Diagnosis Generalized abdominal pain. (Postoperative abdominal pain). Vomiting with nausea. status post abdominal surgery with left-sided ostomy. ICD-10 Codes R10.84: Generalized abdominal pain R11.2: Nausea with vomiting, unspecified 2 of 2 Normal [facility] ED VISIT SUMMARYon ED VISIT SUMMARY Visit Overview Visit Overview [address] [place] [address] [id number] 09/17/2024 Patient: DALY EVANS Sex: Female : 1985 Age: 39y 09/17/2024 08:24 AM EDT ED Arrival:04:30 09/17/2024 EDT Status:not Recent Travel:no Language:eng Adv Directive:No Isolation Status: Ethnicity:N Fall Risk:no risk Infectious Disease Exposure:yes Measurements:5'7" / 170.2 Self-Harm Status:risk Sepsis Screen:positive cm [...] nausea and vomiting. Recent ileostomy placement at [facility]). GENERAL / NEURO / PSYCH: Alert. Oriented [...] VOMITING WITH NAUSEA 4 of 4 Normal [facility] ED VITALS FLOW SHEETon 09-17 ED VITALS FLOW SHEET Vitals Vital Sign Flow Sheet [address] [address] [id number] 09/17/2024 Patient: DALY EVANS Sex: Female : [...] 139/87 94 107 3 of 3 Normal [facility] INFLUENZA VIRUS RAPID A/Bon 09-17-2024 INFLUENZA VIRUS [...] B IS RARE. IT IS RECOMMENDED THAT "DUAL POSITIVE" RESULTS BE CONFIRMED BY VIRAL CULTURE OR AN FDA-CLEARED INFLUENZA A AND B MOLECULAR ASSAY. INDIVIDUALS WHO HAVE RECEIVED NASALLY ADMINISTERED INFLUENZA A VACCINE MAY TEST POSITIVE IN COMMERCIALLY AVAILABLE INFLUENZA RAPID DIAGNOSTIC TESTS FOR UP TO THREE DAYS. RESULT CRITICAL? NO Normal [facility] Comment on above: Performed By: #### 2 23340 #### [place] [address] LACTATEon 09-17-2024 Lactate [Moles/Vol] 1.4 mmol/L Normal 0.4 - 2.0 [facility] Comment on above: Performed By: #### 2 54654 #### [place] [address] LIPASEon 09-17-2024 Lipase [Catalytic activity/Vol] 38.0 U/L Normal 15.0 - 78.0 [facility] Comment on above: Result Comment: *PLE ASE NOTE THAT RANGES FOR LIPASE HAVE CHANGED OF 06/24/23 DUE TO AN ASSAY UPDATE BY THE MANAGER TRADING.THE NEW ASSAY RANGE IS 6-250 U/L, WITH A REFERENCE RANGE OF 16-77 U/L. Performed By: #### 2 86440 #### [place] [address] SERUM QUALon 09-17 EXTERNAL QC DONE? YES Normal [facility] Comment on above: Performed By: #### 2 19934 ####[place] [address] INTERNAL QC PASS Normal [facility] Comment on above: Performed By: #### 2 66147 ####[place] [address] SER Negative Normal NEGATIVE [facility] Comment on above: Performed By: #### 2 04816 ####[facility],[address] [place] [address] RSVon 09-17-2024 RSV RSV NEGATIVE INTERNAL NEG QC PASS INTERNAL POS QC PASS EXTERNAL QC DONE? YES THIS TESTS IS INTENDED FOR IN VITRO DIAGNOSTIC USE TO AID IN THE DIAGNOSIS OF RESPIRATORY SYNCTYIAL VIRUS INFECTIONS IN AND PEDIATRIC PATIENTS UNDER THE AGE OF 5. IT IS RECOMMENDED THAT NEGATIVE TEST RESULTS BE CONFIRMED BY CELL CULTURE. Normal [facility] Comment on above: Performed By: #### 2 46033 #### [facility],[address] [place] [address] TROPONINon 09-17-2024 HS TROPONIN 7.5 pg/mL Normal 0.0 - 51.4 [facility] Comment on above: Performed By: #### 2 00289 #### [facility],[address] [place] [address] CBC + DIFFon 09-15-2024 Baso # 0.00 x10EE3/UL Normal 0.00 - 0.10 [facility] Comment on above: Performed By: #### 2 73386 #### [facility],[address] [place] [address] Basophils/100 WBC (Bld) 0.1 % Normal 0.0 - 2.0 [facility] Comment on above: Performed By: #### 2 00897 #### [facility],[address] [place] [address] CBC + DIFF Normal [facility] Comment on above: Result Comment: CBC- COMPLETE BLOOD COUNT Performed By: #### 2 78548 #### [place] [address] EO # 0.01 x10EE3/UL Normal 0.00 - 0.50 [facility] Comment on above: Performed By: #### 2 39521 #### [facility],[address],[place] [address] Eosinophils/100 WBC (Bld) 0.3 % Normal 0.0 - 7.0 [facility] Comment on above: Performed By: #### 2 82143 #### [facility],[address] [place], [place] [address] Erythrocyte distribution width (RBC) [Ratio] 17.5 % High 12.0 - 15.6 [facility] Comment on above: Performed By: #### 2 92844 #### [facility],[address] [place], [place] [address] Hematocrit (Bld) [Volume fraction] 27.5 % Low 34.0 - 46.0 [facility] Comment on above: Performed By: #### 2 40090 #### [facility],[address] [place] [address] Hemoglobin (Bld) [Mass/Vol] 8.7 g/dL Low 12.0 - 16.0 [facility] Comment on above: Performed By: #### 2 01790 #### [facility],[address] [place] [address] Lymph # 0.62 x10EE3/UL Low 0.80 - 2.80 [facility] Comment on above: Performed By: #### 2 76289 #### [facility],[address] [place] [address] Lymphocytes/100 WBC (Bld) 13.7 % Low 20.0 - 45.0 [facility] Comment on above: Performed By: #### 2 57480 #### [facility],[address] [place] [address] MANUAL DIFF N/A Normal [facility] Comment on above: Performed By: #### 2 44201 #### [facility],[address] [place] [address] MCH (RBC) [Entitic mass] 25 pg Low 27 - 33 [facility] Comment on above: Performed By: #### 2 79943 #### [facility],[address] [place] [address] MCHC 32 X10 3 Normal 32 - 36 [facility] Comment on above: Performed By: #### 2 70970 #### [facility],[address] [place] [address] MCV (RBC) [Entitic vol] 80 fL Normal 80 - 99 [facility] Comment on above: Performed By: #### 2 92234 #### [facility],[address] [place] [address] Mccreary # 0.17 x10EE3/UL Low 0.20 - 1.00 [facility] Comment on above: Performed By: #### 2 58918 #### [facility],[address] [place] [address] MONOS % 3.8 % Normal 0.0 - 10.0 [facility] Comment on above: Performed By: #### 2 26983 #### [facility],[address] [place], [place] [address] Morphology Stan (Bld) [Interp] N/A Normal [facility] Comment on above: Performed By: #### 2 71044 #### [facility],[address] [place] [address] Neut # 3.70 x10EE3/UL Normal 1.50 - 7.10 [facility] Comment on above: Performed By: #### 2 61941 #### [facility],[address] [place] [address] Neutrophils/100 WBC (Bld) 82.2 % High 46.0 - 76.0 [facility] Comment on above: Performed By: #### 2 27673 #### [facility],[address] [place], [place] [address] PLATELET 272 x10EE3/UL Normal 150 - 450 [facility] Comment on above: Performed By: #### 2 97365 #### [facility],[address] [place] [address] Platelet mean volume (Bld) [Entitic vol] 8.2 fL Normal 6.6 - 10.5 [facility] Comment on above: Result Comment: AUTO MATED DIFFERENTIAL Performed By: #### 2 43865 #### [facility],[address] [place] [address] RBC 3.43 x 10EE6/UL Low 4.10 - 5.30 [facility] Comment on above: Performed By: #### 2 80883 #### [facility],[address] [place] [address] WBC 4.5 x 10EE3/UL Normal 4.5 - 10.8 [facility] Comment on above: Performed By: #### 2 35530 #### [facility],[address] [place] [address] CMP with eGFRon 09-15-2024 AGE 39 years Normal [facility] Comment on above: Performed By: #### 2 92442 #### [facility],[address] [place] [address]235 Albumin [Mass/Vol] 1.9 g/dL Low 3.4 - 5.0 [facility] Comment on above: Performed By: #### 2 17092 #### [facility],[address] [place] [address] 11871 Albumin/Globulin [Mass ratio] 0.3 {ratio} Low 0.9 - 1.6 [facility] Comment on above: Performed By: #### 2 05774 #### [facility],[address] [place] [address] ALK PHOS 82 U/L Normal 46 - 116 [facility] Comment on above: Performed By: #### 2 94349 #### [facility],[address] [place] [address] ALT [Catalytic activity/Vol] 27 U/L Normal 16 - 63 [facility] Comment on above: Performed By: #### 2 05975 #### [facility],[address] [place] [address] Anion gap [Moles/Vol] 13 mmol/L Normal 10 - 20 [facility] Comment on above: Performed By: #### 2 74936 #### [facility],[address] [place] [address] 26378 AST [Catalytic activity/Vol] 31 U/L Normal 13 - 39 [facility] Comment on above: Performed By: #### 2 44913 #### [facility],[address] [place] [address] B/C RATIO 14 ratio Normal 0 - 30 [facility] Comment on above: Performed By: #### 2 91633 #### [facility],[address] [place] [address] Bilirubin [Mass/Vol] 0.5 mg/dL Normal 0.2 - 1.0 [facility] Comment on above: Performed By: #### 2 06596 #### [facility],[address] [place] [address] Calcium [Mass/Vol] 8.0 mg/dL Low 8.5 - 10.1 [facility] Comment on above: Performed By: #### 2 92349 #### [facility],[address] [place] [address]8747 Chloride [Moles/Vol] 100 mmol/L Normal 98 - 107 [facility] Comment on above: Performed By: #### 2 39398 #### [facility],[address] [place] [address]015 CMP with eGFR Normal [facility] Comment on above: Result Comment: COMP REHENSIVE METABOLIC PANEL Performed By: #### 2 93472 #### [facility],[address] [place] [address] 15403 CO2 [Moles/Vol] 24.6 mmol/L Normal 21.0 - 32.0 [facility] Comment on above: Performed By: #### 2 10129 #### [facility],[address] [place] [address] Creatinine [Mass/Vol] 1.06 mg/dL High 0.55 - 1.02 [facility] Comment on above: Performed By: #### 2 10779 #### [facility],[address] [place] [address] 20067 eGFR 57 ML/MINUTE Low 60 - 999 [facility] Comment on above: Performed By: #### 2 30907 #### [facility],[address] [place] [address] GFR/1.73 sq M.predicted among non-blacks MDRD (S/P/Bld) [Vol rate/Area] mL/min/{1.73_m2} Normal 60 - 999 [facility] Comment on above: Result Comment: ACCO RDING TO THE NATIONAL KIDNEY DISEASE EDUCATION PROGRAM(NKDE), A NORMAL eGFR IS A VALUE GREATER THAN OR EQUAL TO 60 ML/MIN/1.73 SQ METERS. CHRONIC KIDNEY DISEASE: <60mL/MIN/1.73 SQ METERS KIDNEY FAILURE: <15mL/MIN/1.73 SQ METERS THIS TEST SHOULD ONLY BE USED FOR PATIENTS 18 YEARS OF AGE AND OLDER. Performed By: #### 2 52809 #### [facility],[address] [place] [address] Globulin (S) [Mass/Vol] 5.5 g/dL High 1.5 - 3.8 [facility] Comment on above: Performed By: #### 2 11129 #### [facility],[address] [place] [address] 93894 Glucose [Mass/Vol] 105 mg/dL Normal 74 - 106 [facility] Comment on above: Performed By: #### 2 78038 #### [facility],[address] [place] [address] 03026 Potassium [Moles/Vol] 3.7 mmol/L Normal 3.5 - 5.1 [facility] Comment on above: Performed By: #### 2 74780 #### [facility],[address] [place] [address] Protein [Mass/Vol] 7.4 g/dL Normal 6.4 - 8.2 [facility] Comment on above: Performed By: #### 2 85706 #### [facility],[address] [place] [address] Sodium [Moles/Vol] 134 mmol/L Low 136 - 145 [facility] Comment on above: Performed By: #### 2 15265 #### [facility],[address] [place] [address] Urea nitrogen [Mass/Vol] 15 mg/dL Normal 7 - 18 [facility] Comment on above: Performed By: #### 2 35909 #### [facility],[address] [place] [address] CBC + DIFFon 09-13-2024 Baso # 0.02 x10EE3/UL Normal 0.00 - 0.10 [facility] Comment on above: Performed By: #### 2 59944 #### [facility],[address] [place] [address] Basophils/100 WBC (Bld) 0.3 % Normal 0.0 - 2.0 [facility] Comment on above: Performed By: #### 2 09605 #### [facility],[address] [place] [address] CBC + DIFF Normal [facility] Comment on above: Result Comment: CBC- COMPLETE BLOOD COUNT Performed By: #### 2 90224 #### [place] [address] EO # 0.26 x10EE3/UL Normal 0.00 - 0.50 [facility] Comment on above: Performed By: #### 2 81724 #### [facility],[address] [place] [address] 47156 Eosinophils/100 WBC (Bld) 3.9 % Normal 0.0 - 7.0 [facility] Comment on above: Performed By: #### 2 62472 #### [facility],[address] [place] [address] 87724 Erythrocyte distribution width (RBC) [Ratio] 17.0 % High 12.0 - 15.6 [facility] Comment on above: Performed By: #### 2 06172 #### [facility],[address] [place] [address] 80195 Hematocrit (Bld) [Volume fraction] 29.3 % Low 34.0 - 46.0 [facility] Comment on above: Performed By: #### 2 84179 #### [facility],[address] [place] [address] 07932 Hemoglobin (Bld) [Mass/Vol] 9.5 g/dL Low 12.0 - 16.0 [facility] Comment on above: Performed By: #### 2 03985 #### [facility],[address] [place] [address] 61457 Lymph # 1.51 x10EE3/UL Normal 0.80 - 2.80 [facility] Comment on above: Performed By: #### 2 46403 #### [facility],[address] [place] [address] 56199 Lymphocytes/100 WBC (Bld) 22.6 % Normal 20.0 - 45.0 [facility] Comment on above: Performed By: #### 2 19582 #### [facility],[address] [place] [address] 76933 MANUAL DIFF N/A Normal [facility] Comment on above: Performed By: #### 2 61472 #### [facility],[address] [place] [address] 36863 MCH (RBC) [Entitic mass] 26 pg Low 27 - 33 [facility] Comment on above: Performed By: #### 2 44977 #### [facility],[address] [place] [address] 99181 MCHC 33 X10 3 Normal 32 - 36 [facility] Comment on above: Performed By: #### 2 77954 #### [facility],[address] [place] [address] 85828 MCV (RBC) [Entitic vol] 81 fL Normal 80 - 99 [facility] Comment on above: Performed By: #### 2 42938 #### [facility],[address] [place] [address] Mccreary # 0.38 x10EE3/UL Normal 0.20 - 1.00 [facility] Comment on above: Performed By: #### 2 06661 #### [facility],[address] [place] [address] MONOS % 5.6 % Normal 0.0 - 10.0 [facility] Comment on above: Performed By: #### 2 91918 #### [facility],[address] [place] [address] 09350 Morphology Stan (Bld) [Interp] N/A Normal [facility] Comment on above: Performed By: #### 2 23770 #### [facility],[address] [place] [address] 71227 Neut # 4.54 x10EE3/UL Normal 1.50 - 7.10 [facility] Comment on above: Performed By: #### 2 26005 #### [facility],[address] [place] [address] 29236 Neutrophils/100 WBC (Bld) 67.6 % Normal 46.0 - 76.0 [facility] Comment on above: Performed By: #### 2 44469 #### [facility],[address] [place], [place] [address] PLATELET 455 x10EE3/UL High 150 - 450 [facility] Comment on above: Performed By: #### 2 96957 #### [facility],[address] [place] [address] 24174 Platelet mean volume (Bld) [Entitic vol] 7.9 fL Normal 6.6 - 10.5 [facility] Comment on above: Result Comment: AUTO MATED DIFFERENTIAL Performed By: #### 2 45800 #### [facility],[address] [place] [address] RBC 3.63 x 10EE6/UL Low 4.10 - 5.30 [facility] Comment on above: Performed By: #### 2 00059 #### [facility],[address] [place], [place] [address] WBC 6.7 x 10EE3/UL Normal 4.5 - 10.8 [facility] Comment on above: Performed By: #### 2 35254 #### [facility],[address] [place] [address] CMP with eGFRon 09-13-2024 AGE 39 years Normal [facility] Comment on above: Performed By: #### 2 81680 #### [facility],[address] [place], [place] [address] Albumin [Mass/Vol] 2.1 g/dL Low 3.4 - 5.0 [facility] Comment on above: Performed By: #### 2 46837 #### [facility],[address] [place], [place] [address] Albumin/Globulin [Mass ratio] 0.4 {ratio} Low 0.9 - 1.6 [facility] Comment on above: Performed By: #### 2 44367 #### [facility],[address] [place] [address] 34885 ALK PHOS 95 U/L Normal 46 - 116 [facility] Comment on above: Performed By: #### 2 07547 #### [facility],[address] [place] [address] 92452 ALT [Catalytic activity/Vol] 25 U/L Normal 16 - 63 [facility] Comment on above: Performed By: #### 2 47074 #### [facility],[address] [place] [address] 68813 Anion gap [Moles/Vol] 12 mmol/L Normal 10 - 20 [facility] Comment on above: Performed By: #### 2 65114 #### [facility],[address] [place] [address] 02760 AST [Catalytic activity/Vol] 20 U/L Normal 13 - 39 [facility] Comment on above: Performed By: #### 2 29346 #### [facility],[address] [place], [place] [address] B/C RATIO 24 ratio Normal 0 - 30 [facility] Comment on above: Performed By: #### 2 33169 #### [facility],[address] [place] [address] 10252 Bilirubin [Mass/Vol] 0.4 mg/dL Normal 0.2 - 1.0 [facility] Comment on above: Performed By: #### 2 86313 #### [facility],[address] [place] [address] 35896 Calcium [Mass/Vol] 8.7 mg/dL Normal 8.5 - 10.1 [facility] Comment on above: Performed By: #### 2 38906 #### [facility],[address] [place] [address] 62034 Chloride [Moles/Vol] 102 mmol/L Normal 98 - 107 [facility] Comment on above: Performed By: #### 2 01758 #### [facility],[address] [place] [address] 71237 CMP with eGFR Normal [facility] Comment on above: Result Comment: COMP REHENSIVE METABOLIC PANEL Performed By: #### 2 17538 #### [facility],[address] [place] [address] 33012 CO2 [Moles/Vol] 27.5 mmol/L Normal 21.0 - 32.0 [facility] Comment on above: Performed By: #### 2 52720 #### [place] [id number] Creatinine [Mass/Vol] 0.87 mg/dL Normal 0.55 - 1.02 [facility] Comment on above: Performed By: #### 2 76455 #### [place] [address] GFR/1.73 sq M.predicted among non-blacks MDRD (S/P/Bld) [Vol rate/Area] mL/min/{1.73_m2} Normal 60 - 999 [facility] Comment on above: Performed By: #### 2 89920 #### [place] [address] Result Comment: ACCO RDING TO THE NATIONAL KIDNEY DISEASE EDUCATION PROGRAM(NKDE), A NORMAL eGFR IS A VALUE GREATER THAN OR EQUAL TO 60 ML/MIN/1.73 SQ METERS. CHRONIC KIDNEY DISEASE: <60mL/MIN/1.73 SQ METERS KIDNEY FAILURE: <15mL/MIN/1.73 SQ METERS THIS TEST SHOULD ONLY BE USED FOR PATIENTS 18 YEARS OF AGE AND OLDER. Globulin (S) [Mass/Vol] 5.8 g/dL High 1.5 - 3.8 [facility] Comment on above: Performed By: #### 2 88026 #### [address] [address] Glucose [Mass/Vol] 74 mg/dL Normal 74 - 106 [facility] Comment on above: Performed By: #### 2 13819 #### [address] [address] Potassium [Moles/Vol] 3.7 mmol/L Normal 3.5 - 5.1 [facility] Comment on above: Performed By: #### 2 53628 #### [address] [address] Protein [Mass/Vol] 7.9 g/dL Normal 6.4 - 8.2 [facility] Comment on above: Performed By: #### 2 76453 #### [facility],[address] [place] [address] 93382 Sodium [Moles/Vol] 138 mmol/L Normal 136 - 145 [facility] Comment on above: Performed By: #### 2 39279 #### [facility],[address] [place] [address] 16804 Urea nitrogen [Mass/Vol] 21 mg/dL High 7 - 18 [facility] Comment on above: Performed By: #### 2 42578 #### [facility],[address] [place] [address] 20017 MAGNESIUMon 09-13-2024 Magnesium [Mass/Vol] 1.8 mg/dL Normal 1.8 - 2.4 [facility] Comment on above: Performed By: #### 2 74389 #### [facility],[address] [place] [address] 50633 CMP with eGFRon 09-10-2024 AGE 39 years Normal [facility] Comment on above: Performed By: #### 2 24223 ####[facility],[address] [place] [address] 65549 Albumin [Mass/Vol] 2.0 g/dL Low 3.4 - 5.0 [facility] Comment on above: Performed By: #### 2 01209 ####[facility],[address] [place] [address] 42199 Albumin/Globulin [Mass ratio] 0.4 {ratio} Low 0.9 - 1.6 [facility] Comment on above: Performed By: #### 2 60549 ####[facility],[address] [place] [address] 38985 ALK PHOS 93 U/L Normal 46 - 116 [facility] Comment on above: Performed By: #### 2 19468 ####[facility],[address] [place] [address] 46663 ALT [Catalytic activity/Vol] 26 U/L Normal 16 - 63 [facility] Comment on above: Performed By: #### 2 01569 ####[facility],[address] [place] [address] 10899 Anion gap [Moles/Vol] 7 mmol/L Low 10 - 20 [facility] Comment on above: Performed By: #### 2 18261 ####[facility],[address] [place] [address] 08460 AST [Catalytic activity/Vol] 22 U/L Normal 13 - 39 [facility] Comment on above: Performed By: #### 2 61066 ####[facility],[address] [place] [address] 34535 B/C RATIO 19 ratio Normal 0 - 30 [facility] Comment on above: Performed By: #### 2 91237 ####[facility],[address] [place] [address] 47998 Bilirubin [Mass/Vol] 0.3 mg/dL Normal 0.2 - 1.0 [facility] Comment on above: Performed By: #### 2 38428 ####[facility],[address] [place] [address] 57472 Calcium [Mass/Vol] 8.3 mg/dL Low 8.5 - 10.1 [facility] Comment on above: Performed By: #### 2 72117 ####[facility],[address] [place] [address] 31472 Chloride [Moles/Vol] 103 mmol/L Normal 98 - 107 [facility] Comment on above: Performed By: #### 2 78775 ####[facility],[address] [place] [address] 52654 CMP with eGFR Normal [facility] Comment on above: Result Comment: COMP REHENSIVE METABOLIC PANEL Performed By: #### 2 31850 ####[facility],[address] [place] [address] 42774 CO2 [Moles/Vol] 30.7 mmol/L Normal 21.0 - 32.0 [facility] Comment on above: Performed By: #### 2 38243 ####[facility],[address] [place] [address] 36227 Creatinine [Mass/Vol] 0.90 mg/dL Normal 0.55 - 1.02 [facility] Comment on above: Performed By: #### 2 66510 ####[facility],[address] [place] [address] 97725 GFR/1.73 sq M.predicted among non-blacks MDRD (S/P/Bld) [Vol rate/Area] mL/min/{1.73_m2} Normal 60 - 999 [facility] Comment on above: Performed By: #### 2 64183 ####[place] [id number] Result Comment: ACCO RDING TO THE NATIONAL KIDNEY DISEASE EDUCATION PROGRAM(NKDE), A NORMAL eGFR IS A VALUE GREATER THAN OR EQUAL TO 60 ML/MIN/1.73 SQ METERS. CHRONIC KIDNEY DISEASE: <60mL/MIN/1.73 SQ METERS KIDNEY FAILURE: <15mL/MIN/1.73 SQ METERS THIS TEST SHOULD ONLY BE USED FOR PATIENTS 18 YEARS OF AGE AND OLDER. Globulin (S) [Mass/Vol] 5.7 g/dL High 1.5 - 3.8 [facility] Comment on above: Performed By: #### 2 69303 ####[facility],[address] [place] [address] 59270 Glucose [Mass/Vol] 94 mg/dL Normal 74 - 106 [facility] Comment on above: Performed By: #### 2 98493 ####[facility],[address] [place] [address] 03450 Potassium [Moles/Vol] 3.5 mmol/L Normal 3.5 - 5.1 [facility] Comment on above: Performed By: #### 2 28750 ####[facility],[address] [place] [address] 11637 Protein [Mass/Vol] 7.7 g/dL Normal 6.4 - 8.2 [facility] Comment on above: Performed By: #### 2 08670 ####[facility],[address] [place] [address] Sodium [Moles/Vol] 137 mmol/L Normal 136 - 145 [facility] Comment on above: Performed By: #### 2 15928 ####[facility],[address] [place] [address] Urea nitrogen [Mass/Vol] 17 mg/dL Normal 7 - 18 [facility] Comment on above: Performed By: #### 2 26502 ####[facility],[address] [place] [address] MAGNESIUMon 09-10-2024 Magnesium [Mass/Vol] 1.7 mg/dL Low 1.8 - 2.4 [facility] Comment on above: Performed By: #### 2 60459 #### [facility],[address] [place] [address] CBC + DIFFon 09-06-2024 Baso # 0.04 x10EE3/UL Normal 0.00 - 0.10 [facility] Comment on above: Performed By: #### 2 21366 #### [facility],[address] [place] [address] Basophils/100 WBC (Bld) 0.4 % Normal 0.0 - 2.0 [facility] Comment on above: Performed By: #### 2 31887 #### [facility],[address] [place] [address] CBC + DIFF Normal [facility] Comment on above: Result Comment: CBC- COMPLETE BLOOD COUNT Performed By: #### 2 24038 #### [facility],[address] [place] [address] EO # 0.14 x10EE3/UL Normal 0.00 - 0.50 [facility] Comment on above: Performed By: #### 2 45808 #### [facility],[address] [place], [place] [address] Eosinophils/100 WBC (Bld) 1.3 % Normal 0.0 - 7.0 [facility] Comment on above: Performed By: #### 2 96579 #### [facility],[address] [place] [address] Erythrocyte distribution width (RBC) [Ratio] 18.0 % High 12.0 - 15.6 [facility] Comment on above: Performed By: #### 2 36103 #### [facility],[address] [place] [address] Hematocrit (Bld) [Volume fraction] 27.9 % Low 34.0 - 46.0 [facility] Comment on above: Performed By: #### 2 19871 #### [facility],[address] [place] [address] Hemoglobin (Bld) [Mass/Vol] 9.1 g/dL Low 12.0 - 16.0 [facility] Comment on above: Performed By: #### 2 69537 #### [facility],[address] [place] [address] 88002 Lymph # 1.68 x10EE3/UL Normal 0.80 - 2.80 [facility] Comment on above: Performed By: #### 2 66070 #### [facility],[address] [place], [place] [address] Lymphocytes/100 WBC (Bld) 16.1 % Low 20.0 - 45.0 [facility] Comment on above: Performed By: #### 2 58920 #### [facility],[address] [place], [place] [address] MANUAL DIFF N/A Normal [facility] Comment on above: Performed By: #### 2 06615 #### [place] [address] MCH (RBC) [Entitic mass] 27 pg Normal 27 - 33 [facility] Comment on above: Performed By: #### 2 75485 #### [facility],[address] [place] [address] MCHC 33 X10 3 Normal 32 - 36 [facility] Comment on above: Performed By: #### 2 89347 #### [place] [address] MCV (RBC) [Entitic vol] 83 fL Normal 80 - 99 [facility] Comment on above: Performed By: #### 2 51429 #### [place] [address] Mccreary # 0.87 x10EE3/UL Normal 0.20 - 1.00 [facility] Comment on above: Performed By: #### 2 84504 #### [facility],[address] [place] [address] MONOS % 8.4 % Normal 0.0 - 10.0 [facility] Comment on above: Performed By: #### 2 05978 #### [facility],[address] [place] [address] Morphology Stan (Bld) [Interp] N/A Normal [facility] Comment on above: Performed By: #### 2 10995 #### [place] [address] Neut # 7.69 x10EE3/UL High 1.50 - 7.10 [facility] Comment on above: Performed By: #### 2 28554 #### [place] [address] Neutrophils/100 WBC (Bld) 73.8 % Normal 46.0 - 76.0 [facility] Comment on above: Performed By: #### 2 60235 #### [place] 217484 PLATELET 722 x10EE3/UL High 150 - 450 [facility] Comment on above: Performed By: #### 2 96808 #### [facility],[address] [place] [address] 18679 Platelet mean volume (Bld) [Entitic vol] 7.5 fL Normal 6.6 - 10.5 [facility] Comment on above: Result Comment: AUTO MATED DIFFERENTIAL Performed By: #### 2 97221 #### [facility],[address] [place] [address] 87444 RBC 3.37 x 10EE6/UL Low 4.10 - 5.30 [facility] Comment on above: Performed By: #### 2 36627 #### [facility],[address] [place], [place] [address] WBC 10.4 x 10EE3/UL Normal 4.5 - 10.8 [facility] Comment on above: Performed By: #### 2 05729 #### [facility],[address] [place] [address] CMP with eGFRon 09-06-2024 AGE 38 years Normal [facility] Comment on above: Performed By: #### 2 51466 ####[facility],[address] [place] [address] 70995 Albumin [Mass/Vol] 1.9 g/dL Low 3.4 - 5.0 [facility] Comment on above: Performed By: #### 2 41552 ####[facility],[address] [place] [address] 86483 Albumin/Globulin [Mass ratio] 0.3 {ratio} Low 0.9 - 1.6 [facility] Comment on above: Performed By: #### 2 67388 ####[facility],[address] [place], [place] [address] ALK PHOS 97 U/L Normal 46 - 116 [facility] Comment on above: Performed By: #### 2 79719 ####[facility],[address] [place] [address] 47207 ALT [Catalytic activity/Vol] 29 U/L Normal 16 - 63 [facility] Comment on above: Performed By: #### 2 58782 ####[facility],[address] [place] [address] 45348 Anion gap [Moles/Vol] 9 mmol/L Low 10 - 20 [facility] Comment on above: Performed By: #### 2 09706 ####[facility],[address] [place] [address] 46604 AST [Catalytic activity/Vol] 28 U/L Normal 13 - 39 [facility] Comment on above: Performed By: #### 2 00703 ####[facility],[address] [place] [address] 47948 B/C RATIO 21 ratio Normal 0 - 30 [facility] Comment on above: Performed By: #### 2 20333 ####[facility],[address] [place] [address] 52721 Bilirubin [Mass/Vol] 0.3 mg/dL Normal 0.2 - 1.0 [facility] Comment on above: Performed By: #### 2 27288 ####[facility],[address] [place] [address] 96514 Calcium [Mass/Vol] 8.3 mg/dL Low 8.5 - 10.1 [facility] Comment on above: Performed By: #### 2 05529 ####[facility],[address] [place] [address] 20507 Chloride [Moles/Vol] 102 mmol/L Normal 98 - 107 [facility] Comment on above: Performed By: #### 2 67814 ####[facility],[address] [place] [address] 34175 CMP with eGFR Normal [facility] Comment on above: Result Comment: COMP REHENSIVE METABOLIC PANEL Performed By: #### 2 32221 ####[facility],[address] [place] [address] 79469 CO2 [Moles/Vol] 29.5 mmol/L Normal 21.0 - 32.0 [facility] Comment on above: Performed By: #### 2 13166 ####[facility],[address] [place] [address] 64253 Creatinine [Mass/Vol] 0.84 mg/dL Normal 0.55 - 1.02 [facility] Comment on above: Performed By: #### 2 63045 ####[facility],[address] [place] [address] 07341 GFR/1.73 sq M.predicted among non-blacks MDRD (S/P/Bld) [Vol rate/Area] mL/min/{1.73_m2} Normal 60 - 999 [facility] Comment on above: Performed By: #### 2 42520 ####[facility],[address] [place] [address] 16276 Result Comment: ACCO RDING TO THE NATIONAL KIDNEY DISEASE EDUCATION PROGRAM(NKDE), A NORMAL eGFR IS A VALUE GREATER THAN OR EQUAL TO 60 ML/MIN/1.73 SQ METERS. CHRONIC KIDNEY DISEASE: <60mL/MIN/1.73 SQ METERS KIDNEY FAILURE: <15mL/MIN/1.73 SQ METERS THIS TEST SHOULD ONLY BE USED FOR PATIENTS 18 YEARS OF AGE AND OLDER. Globulin (S) [Mass/Vol] 6.3 g/dL High 1.5 - 3.8 [facility] Comment on above: Performed By: #### 2 41635 ####[facility],[address] [place] [address] 93219 Glucose [Mass/Vol] 137 mg/dL High 74 - 106 [facility] Comment on above: Performed By: #### 2 62783 ####[facility],[address] [place] [address] 58376 Potassium [Moles/Vol] 3.8 mmol/L Normal 3.5 - 5.1 [facility] Comment on above: Performed By: #### 2 34672 ####[facility],[address] [place] [address] 13612 Protein [Mass/Vol] 8.2 g/dL Normal 6.4 - 8.2 [facility] Comment on above: Performed By: #### 2 75682 ####[facility],[address] [place] [address] 84509 Sodium [Moles/Vol] 137 mmol/L Normal 136 - 145 [facility] Comment on above: Performed By: #### 2 47214 ####[facility],[address] [place] [address] 45466 Urea nitrogen [Mass/Vol] 18 mg/dL Normal 7 - 18 [facility] Comment on above: Performed By: #### 2 43166 ####[facility],[address] [place] [address] 02832 MAGNESIUMon 09-06-2024 Magnesium [Mass/Vol] 2.0 mg/dL Normal 1.8 - 2.4 [facility] Comment on above: Performed By: #### 2 81721 ####[facility],[address] [place] [address] 08004 PHOSPHORUSon 09-06-2024 Phosphate [Mass/Vol] 3.6 mg/dL Normal 2.6 - 4.7 [facility] Comment on above: Performed By: #### 2 15302 #### [facility],[address] [place] [address] 65761 Culture, Blood (WB)on 2024 CUB Blood cultures x2, f rom two different sites No growth in 5 days. Normal [facility] Comment on above: Performed By: #### M 200.1000 ####[facility] [address] [place], [address] 12 Lead EKGon 08-20-2024 12 Lead EKG Normal [facility] Abdomen/Pelvis W IV Cont ONL Yon 08-20-2024 Abdomen/Pelvis W IV Cont ONLY Normal [facility] CBC W/Diff, Automatedon - STOMATOCYTE RARE Normal [facility] Comment on above: Performed By: #### L 100.0100, L700.6800, L500.4050, L501.2450, L505.5000 ####[facility] [address] [place], [address] Anisocytosis Ql (Bld) 2+ Normal [facility] Comment on above: Performed By: #### L 100.0100, L700.6800, L500.4050, L501.2450, L505.5000 ####[facility] [address] [place], [address] MICROCYTIC 1+ Normal [facility] Comment on above: Performed By: #### L 100.0100, L700.6800, L500.4050, L501.2450, L505.5000 ####[facility] [address] [place], [address] OVALOCYTE RARE Normal [facility] Comment on above: Performed By: #### L 100.0100, L700.6800, L500.4050, L501.2450, L505.5000 ####[facility] [address] [place], [address] POLYCHROMASIA 2+ Normal [facility] Comment on above: Performed By: #### L 100.0100, L700.6800, L500.4050, L501.2450, L505.5000 ####[facility] [address] [place], [address] CTA Chst, Abd, Pel W and/or WOon 08-20-2024 CTA Chst, Abd, Pel W and/or WO Normal [facility] Comprehensive Metabolic Prof ilon 08-20-2024 Albumin [Mass/Vol] 3.0 g/dL Low 3.2-5.0 [facility] Comment on above: Performed By: #### L 100.0100, L700.6800, L500.4050, L501.2450, L505.5000 ####[facility] [address] [place], [address] Albumin/Globulin [Mass ratio] 0.5 {ratio} Low 0.9-2.4 [facility] Comment on above: Performed By: #### L 100.0100, L700.6800, L500.4050, L501.2450, L505.5000 ####[facility] [address] [place], [address] ALK P 98 U/L Normal 45-117 [facility] Comment on above: Performed By: #### L 100.0100, L700.6800, L500.4050, L501.2450, L505.5000 ####[facility] [address] [place], [address] ALT [Catalytic activity/Vol] 15 U/L Normal 13-56 [facility] Comment on above: Performed By: #### L 100.0100, L700.6800, L500.4050, L501.2450, L505.5000 ####[facility] [address] [place], [address] AST [Catalytic activity/Vol] 20 U/L Normal 15-37 [facility] Comment on above: Performed By: #### L 100.0100, L700.6800, L500.4050, L501.2450, L505.5000 ####[facility] [address] [place], [address] Bilirubin [Mass/Vol] 0.30 mg/dL Normal 0.20-1.00 [facility] Comment on above: Result Comment: For patients on eltrombopag therapy, use of Dimension [place] TBIL is not recommended. Performed By: #### L 100.0100, L700.6800, L500.4050, L501.2450, L505.5000 ####[facility] [address] [place], [address] BUN/CRE 10.9 RATIO Normal 10-20 [facility] Comment on above: Performed By: #### L 100.0100, L700.6800, L500.4050, L501.2450, L505.5000 ####[facility] [address] [place], [address] CA,Total 8.8 mg/dL Normal 8.5-10.1 [facility] Comment on above: Performed By: #### L 100.0100, L700.6800, L500.4050, L501.2450, L505.5000 ####[facility] [address] [place], [address] Chloride [Moles/Vol] 106 mmol/L Normal 98-107 [facility] Comment on above: Performed By: #### L 100.0100, L700.6800, L500.4050, L501.2450, L505.5000 ####[facility] [address] [place], [address] CO2 [Moles/Vol] 22.0 mmol/L Normal 21.0-32.0 [facility] Comment on above: Performed By: #### L 100.0100, L700.6800, L500.4050, L501.2450, L505.5000 ####[facility] [address] [place], [address] Creatinine [Mass/Vol] 1.29 mg/dL High 0.55-1.02 [facility] Comment on above: Result Comment: The validity of the calculated GFR GFRAA in patients over70 years has not been determined. Clinical correlation isessential. Performed By: #### L 100.0100, L700.6800, L500.4050, L501.2450, L505.5000 ####[facility] [address] [place], [address] ECRCL 71.07 ml/min Normal [facility] Comment on above: Performed By: #### L 100.0100, L700.6800, L500.4050, L501.2450, L505.5000 ####[facility] [address] [place], [address] EST GFR - AA 59 mL/min Low >60 [facility] Comment on above: Result Comment: Afri can Cymraes GFR Calc Performed By: #### L 100.0100, L700.6800, L500.4050, L501.2450, L505.5000 ####[facility] [address] [place], [address] GAP 11 Normal 5-15 [facility] Comment on above: Performed By: #### L 100.0100, L700.6800, L500.4050, L501.2450, L505.5000 ####[facility] [address] [place], [address] GFR/1.73 sq M.predicted among non-blacks MDRD (S/P/Bld) [Vol rate/Area] 48 mL/min/{1.73_m2} Low >60 [facility] Comment on above: Result Comment: Non- GFR Calc Performed By: #### L 100.0100, L700.6800, L500.4050, L501.2450, L505.5000 ####[facility] [address] [place], [address] Globulin (S) [Mass/Vol] 5.6 g/dL High 2.2-4.2 [facility] Comment on above: Performed By: #### L 100.0100, L700.6800, L500.4050, L501.2450, L505.5000 ####[facility] [address] [place], [address] Glucose [Mass/Vol] 187 mg/dL High 74-106 [facility] Comment on above: Result Comment: Fast ing Glucose result greater than or equal to 126 mg/dLsuggests DIABETES MELLITUS per A.D.A. criteria. Performed By: #### L 100.0100, L700.6800, L500.4050, L501.2450, L505.5000 ####[facility] [address] [place], [address] Potassium [Moles/Vol] 3.6 mmol/L Normal 3.5-5.1 [facility] Comment on above: Performed By: #### L 100.0100, L700.6800, L500.4050, L501.2450, L505.5000 ####[facility] [address] [place], [address] Sodium [Moles/Vol] 139 mmol/L Normal 136-145 [facility] Comment on above: Performed By: #### L 100.0100, L700.6800, L500.4050, L501.2450, L505.5000 ####[facility] [address] [place], [address] T PROT 8.6 g/dL High 6.4-8.2 [facility] Comment on above: Performed By: #### L 100.0100, L700.6800, L500.4050, L501.2450, L505.5000 ####[facility] [address] [place], [address] Urea nitrogen [Mass/Vol] 14 mg/dL Normal 7-18 [facility] Comment on above: Performed By: #### L 100.0100, L700.6800, L500.4050, L501.2450, L505.5000 ####[facility] [address] [place], [address] Emergency Department Summary on 08-20-2024 Emergency Department Summary Normal [facility] Lactic Acidon 08-20-2024 Lactate [Moles/Vol] 2.2 mmol/L Invalid Interpretation Code 0.4-1.9 [facility] Comment on above: Order Comment: Y Result Comment: Chalot ical Result(s) Called at: 06:12:44 08/20/2024 by:Rossana Wood. Results read back by same. Performed By: #### L 503.6005 ####[facility] [address] [place], [address] Lipaseon 08-20-2024 Lipase [Catalytic activity/Vol] 26 U/L Low 73-393 [facility] Comment on above: Performed By: #### L 100.0100, L700.6800, L500.4050, L501.2450, L505.5000 ####[facility] [address] [place], [address] Partial Thromboplast Timeon 08-20-2024 aPTT Coag (Bld) [Time] 20.9 s Low 24.1-36.2 [facility] Comment on above: Performed By: #### L 300.3900, L300.4310 ####[facility] [address] [place], [address] ,Serum,hCG Quali.on 08-20-2024 HCG, SERUM QUAL Negative Normal [facility] Comment on above: Performed By: #### L 100.0100, L700.6800, L500.4050, L501.2450, L505.5000 ####[facility] [address] [place], [address] Prothrombin Time w/INRon INR Coag (PPP) [Relative time] 1.2 {INR} Normal [facility] Comment on above: Performed By: #### L 300.3900, L300.4310 ####[facility] [address] [place], [address] PT Coag (PPP) [Time] 14.9 s Normal 11.7-14.9 [facility] Comment on above: Performed By: #### L 300.3900, L300.4310 ####[facility] [address] [place], [address] Urinalysis, Completeon 08-20 BACTERIA 3+ /hpf Normal None Seen [facility] Comment on above: Order Comment: CLEAN CATCH Performed By: #### L 400.0001 ####[facility] [address] [place], [address] EPI,SQUAMOUS 0-5 SEEN Normal 5-10 [facility] Comment on above: Order Comment: CLEAN CATCH Performed By: #### L 400.0001 ####[facility] [address] [place], [address] RBC 0-5 SEEN Normal 0-5 [facility] Comment on above: Order Comment: CLEAN CATCH Performed By: #### L 400.0001 ####[facility] [address] [place], [address] Mucus Ql (Urine sed) 0 SEEN Normal [facility] Comment on above: Order Comment: CLEAN CATCH Performed By: #### L 400.0001 ####[facility] [address] [place], [address] WBC 0 SEEN Normal 0-5 [facility] Comment on above: Order Comment: CLEAN CATCH Performed By: #### L 400.0001 ####[facility] [address] [place], [address] Urine Drug Screen (VISTA)on 08-20-2024 AMPHETAMINES Negative Normal <1000 ng/mL [facility] Comment on above: Performed By: #### L 100.0100, L700.6800, L500.4050, L501.2450, L505.5000 ####[facility] [address] [place], [place], [phone] BARBITIURATES Negative Normal < 200 ng/mL [facility] Comment on above: Performed By: #### L 100.0100, L700.6800, L500.4050, L501.2450, L505.5000 ####[facility] [address] [place] [address] BENZODIAZIPINE Negative Normal < 200 ng/mL [facility] Comment on above: Performed By: #### L 100.0100, L700.6800, L500.4050, L501.2450, L505.5000 ####[facility] [address] [place] [address] COCAINE Negative Normal < 300 ng/mL [facility] Comment on above: Performed By: #### L 100.0100, L700.6800, L500.4050, L501.2450, L505.5000 ####[facility] [address] [place] [address] ECSTACY Negative Normal < 500 ng/mL [facility] Comment on above: Performed By: #### L 100.0100, L700.6800, L500.4050, L501.2450, L505.5000 ####[facility] [address] [place] [address] METHADONE Negative Normal < 300 ng/mL [facility] Comment on above: Performed By: #### L 100.0100, L700.6800, L500.4050, L501.2450, L505.5000 ####[facility] [address] [place] [address] OPIATES Positive Abnormal < 300 ng/mL [facility] Comment on above: Performed By: #### L 100.0100, L700.6800, L500.4050, L501.2450, L505.5000 ####[facility] [address] [place], [address] PCP Negative Normal < 25 ng/mL [facility] Comment on above: Performed By: #### L 100.0100, L700.6800, L500.4050, L501.2450, L505.5000 ####[facility] [address] [place], [address] THC Negative Normal < 50 ng/mL [facility] Comment on above: Performed By: #### L 100.0100, L700.6800, L500.4050, L501.2450, L505.5000 ####[facility] [address] [place], [address] VISTA UDS PH 7 Normal [facility] Comment on above: Performed By: #### L 100.0100, L700.6800, L500.4050, L501.2450, L505.5000 ####[facility] [address] [place], [address] Emergency Department Summary on 08-16-2024 Emergency Department Summary Normal [facility] Foot min 3 Viewson 5 Foot min 3 Views Normal [facility] Comprehensive metabolic 2000 panelon 08-08-2024 Albumin [Mass/Vol] 3.8 g/dL Low 3.9 - 4.9 g/dL [facility] ALP [Catalytic activity/Vol] 109 U/L 34 - 123 U/L [facility] ALT [Catalytic activity/Vol] 13 U/L 7 - 38 U/L [facility] Anion gap [Moles/Vol] 12 mmol/L 8 - 15 mmol/L [facility] AST [Catalytic activity/Vol] 16 U/L 13 - 35 U/L [facility] Bilirubin [Mass/Vol] 0.3 mg/dL 0.2 - 1.3 mg/dL [facility] Calcium [Mass/Vol] 9.3 mg/dL 8.5 - 10. 2 mg/dL [facility] Chloride [Moles/Vol] 104 mmol/L 98 - 107 mmol/L [facility] CO2 [Moles/Vol] 23 mmol/L 22 - 30 mmol/L [facility] Creatinine [Mass/Vol] 1.01 mg/dL High 0.58 - 0.96 mg/dL [facility] GFR/1.73 sq M.predicted among non-blacks MDRD (S/P/Bld) [Vol rate/Area] 72 mL/min/{1.73_m2} - PINF [facility] Comment on above: Estimated Glomerular Filtration Rate [...] [Mass/Vol] 85 mg/dL 74 - 99 mg/dL [facility] Comment on above: The [place] Diabete s Association (ADA) provides guidance for [...] Standards of Medical Care in Diabetes 2016, [place] Diabetes Association. Diabetes Care. 2016.39(Suppl 1). Potassium [Moles/Vol] 4 mmol/L 3.7 - 5.1 mmol/L [facility] Protein [Mass/Vol] 8.1 g/dL High 6.3 - 8.0 g/dL [facility] Sodium [Moles/Vol] 139 mmol/L 136 - 144 mmol/L [facility] Urea nitrogen [Mass/Vol] 6 mg/dL Low 7 - 21 mg/dL [facility] Iron and Iron binding capaci ty panelon 08-08-2024 Iron [Mass/Vol] 19 ug/dL Low 41 - 186 ug/dL [facility] Iron binding capacity [Mass/Vol] 483 ug/dL High 232 - 386 ug/dL [facility] Iron/TIBC [Molar ratio] 3.9 % Low 15.0 - 57.0 % [facility] No Panel Informationon 08-08 Interpretation and review of laboratory results Abnormal [facility] CBC W Auto Differential pane l (Bld)on 08-07-2024 Basophils (Bld) [#/Vol] 0.06 10*3/uL [facility] Basophils/100 WBC (Bld) 1 % [facility] Differential cell count method Nom (Bld) Auto [facility] Eosinophils (Bld) [#/Vol] 0.19 10*3/uL [facility] Eosinophils/100 WBC (Bld) 3.3 % [facility] Erythrocyte distribution width (RBC) [Ratio] 19.2 % High 11.5 - 15.0 % [facility] Hematocrit (Bld) [Volume fraction] 31.5 % Low 36.0 - 46.0 % [facility] Hemoglobin (Bld) [Mass/Vol] 8.5 g/dL Low 11.5 - 15.5 g/dL [facility] Immature granulocytes (Bld) [#/Vol] 0.03 10*3/uL [facility] Immature granulocytes/100 WBC (Bld) 0.5 % [facility] Interpretation and review of laboratory results Abnormal [facility] Lymphocytes (Bld) [#/Vol] 1.04 10*3/uL [facility] Lymphocytes/100 WBC (Bld) 17.8 % [facility] MCH (RBC) [Entitic mass] 19.3 pg Low 26.0 - 34.0 pg [facility] MCHC (RBC) [Mass/Vol] 27 g/dL Low 30.5 - 36.0 g/dL [facility] MCV (RBC) [Entitic vol] 71.4 fL Low 80.0 - 100.0 fL [facility] Monocytes (Bld) [#/Vol] 0.4 10*3/uL [facility] Monocytes/100 WBC (Bld) 6.9 % [facility] Neutrophils (Bld) [#/Vol] 4.11 10*3/uL [facility] Neutrophils/100 WBC (Bld) 70.5 % [facility] Nucleated RBC (Bld) [#/Vol] [facility] Nucleated RBC/100 WBC (Bld) [Ratio] 0 % /100 WBC [facility] Platelet mean volume (Bld) [Entitic vol] 9 fL 9.0 - 12.7 fL [facility] Platelets (Bld) [#/Vol] 602 10*3/uL High [facility] RBC (Bld) [#/Vol] 4.41 10*6/uL 3.90 - 5.2 0 m/uL [facility] WBC (Bld) [#/Vol] 5.83 10*3/uL [facility] HbA1c (Bld)on 08-07-2024 Average glucose Estimated from glycated hemoglobin (Bld) [Mass/Vol] 123 mg/dL [facility] Comment on above: eAG: (Estimated aver age glucose) is a calculated value from HgbA1c and is paper sales representative of the average blood glucose level in the last 2-3 month period. HbA1c (Bld) [Mass fraction] 5.9 % High 4.3 - 5.6 % [facility] Comment on above: [employer] Diabetes As sociation guidelines indicate that patients with HgbA1c in the range 5.7-6.4% are at increased risk for development of diabetes, and intervention by lifestyle modification may be beneficial. HgbA1c greater or equal to 6.5% is considered diagnostic of diabetes. Interpretation and review of laboratory results Abnormal [facility] 12 Lead EKGon 07-30-2024 12 Lead EKG Normal [facility] Basic Metabolic Profile (BMP )on 07-30-2024 Potassium [Moles/Vol] 2.7 mmol/L Invalid Interpretation Code 3.5-5.1 [facility] Comment on above: Result Comment: RESU LTS CALLED TO NONI 07/30/241705 Jami Draper.REPORT READ BACK BY . SAME AMENDED REPORT 07/30/241705 K previously reported as: 2.7 *L mmol/L Performed By: #### L 100.0100, L700.6800, L500.2500, L300.3900, L300.4310 ####[facility] [address] [place], [place], [id number] CBC W/Diff, Automatedon Absolute Lymph 1.10 X10 3/uL Normal 0.83-4.51 [facility] Comment on above: Performed By: #### L 100.0100, L700.6800, L500.2500, L300.3900, L300.4310 ####[facility] [address] [place], [address] Absolute Neut 8.0 X10 3/uL High 2.0-7.7 [facility] Comment on above: Performed By: #### L 100.0100, L700.6800, L500.2500, L300.3900, L300.4310 ####[facility] [address] [place], [address] Basophils/100 WBC (Bld) 0.6 % Normal 0-1 [facility] Comment on above: Performed By: #### L 100.0100, L700.6800, L500.2500, L300.3900, L300.4310 ####[facility] [address] [place], [address] Eosinophils/100 WBC (Bld) 1.6 % Normal 0-5 [facility] Comment on above: Performed By: #### L 100.0100, L700.6800, L500.2500, L300.3900, L300.4310 ####[facility] [address] [place], [address] Erythrocyte distribution width (RBC) [Ratio] 18.5 % High 11.6-14.6 [facility] Comment on above: Performed By: #### L 100.0100, L700.6800, L500.2500, L300.3900, L300.4310 ####[facility] [address] [place], [address] Hematocrit (Bld) [Volume fraction] 29.3 % Low 37-47 [facility] Comment on above: Performed By: #### L 100.0100, L700.6800, L500.2500, L300.3900, L300.4310 ####[facility] [address] [place], [address] Hemoglobin (Bld) [Mass/Vol] 8.3 g/dL Low 12.0-15.0 [facility] Comment on above: Performed By: #### L 100.0100, L700.6800, L500.2500, L300.3900, L300.4310 ####[facility] [address] [place], [address] IG% 0.400 Normal 0.0-0.9 [facility] Comment on above: Result Comment: IG% - Immature Granulocytes (promyelocytes, myelocytes andmetamyelocytes) > 1% indicates that a LEFT SHIFT is Present. Performed By: #### L 100.0100, L700.6800, L500.2500, L300.3900, L300.4310 ####[facility] [address] [place], [address] Lymphocytes/100 WBC (Bld) 11.0 % Low 19-41 [facility] Comment on above: Performed By: #### L 100.0100, L700.6800, L500.2500, L300.3900, L300.4310 ####[facility] [address] [place], [address] MCH (RBC) [Entitic mass] 19.6 pg Low 27.0-32.0 [facility] Comment on above: Performed By: #### L 100.0100, L700.6800, L500.2500, L300.3900, L300.4310 ####[facility] [address] [place], [address] MCHC (RBC) [Mass/Vol] 28.3 g/dL Low 32-36 [facility] Comment on above: Performed By: #### L 100.0100, L700.6800, L500.2500, L300.3900, L300.4310 ####[facility] [address] [place], [address] MCV (RBC) [Entitic vol] 69.1 fL Low 81-99 [facility] Comment on above: Performed By: #### L 100.0100, L700.6800, L500.2500, L300.3900, L300.4310 ####[facility] [address] [place], [address] Monocytes/100 WBC (Bld) 7.1 % Normal 0-10 [facility] Comment on above: Performed By: #### L 100.0100, L700.6800, L500.2500, L300.3900, L300.4310 ####[facility] [address] [place], [address] Neutrophils/100 WBC (Bld) 79.3 % High 47-70 [facility] Comment on above: Performed By: #### L 100.0100, L700.6800, L500.2500, L300.3900, L300.4310 ####[facility] [address] [place], [address] Nucleated RBC (Bld) [#/Vol] 0 10*3/uL Normal 0-5 [facility] Comment on above: Performed By: #### L 100.0100, L700.6800, L500.2500, L300.3900, L300.4310 ####[facility] [address] [place], [address] Platelet mean volume (Bld) [Entitic vol] 8.9 fL Normal 6.2-12.0 [facility] Comment on above: Performed By: #### L 100.0100, L700.6800, L500.2500, L300.3900, L300.4310 ####[facility] [address] [place], [address] Platelets (Bld) [#/Vol] 466 10*3/uL High 150-450 [facility] Comment on above: Performed By: #### L 100.0100, L700.6800, L500.2500, L300.3900, L300.4310 ####[facility] [address] [place], [address] RBC (Bld) [#/Vol] 4.24 10*6/uL Normal 4.2-5.4 [facility] Comment on above: Performed By: #### L 100.0100, L700.6800, L500.2500, L300.3900, L300.4310 ####[facility] [address] [place], [address] RDW SD 45.1 fl High 35.1-43.9 [facility] Comment on above: Performed By: #### L 100.0100, L700.6800, L500.2500, L300.3900, L300.4310 ####[facility] [address] [place], [address] WBC (Bld) [#/Vol] 10.0 10*3/uL Normal 4.4-11.0 [facility] Comment on above: Performed By: #### L 100.0100, L700.6800, L500.2500, L300.3900, L300.4310 ####[facility] [address] [place], [address] Chest 1 View (Portable)on Chest 1 View (Portable) Normal [facility] Emergency Department Summary on 07-30-2024 Emergency Department Summary Normal [facility] Ferritinon 07-30-2024 Ferritin [Mass/Vol] 11 ng/mL Normal 8-252 [facility] Comment on above: Performed By: #### L 503.6030, L503.6550 ####[facility] [address] [place], [address] Iron+Iron Binding Capacityon 07-30-2024 Iron [Mass/Vol] 12 ug/dL Low 50-170 [facility] Comment on above: Performed By: #### L 503.6030, L503.6550 ####[facility] [address] [place], [address] IRON SATURATION 2.5 Low 15.0-55.0 [facility] Comment on above: Performed By: #### L 503.6030, L503.6550 ####[facility] [address] [place], [address] TIBC 480 ug/dL High 250-450 [facility] Comment on above: Performed By: #### L 503.6030, L503.6550 ####[facility] [address] [place], [address] Partial Thromboplast Timeon 07-30-2024 aPTT Coag (Bld) [Time] 28.8 s Normal 24.1-36.2 [facility] Comment on above: Performed By: #### L 100.0100, L700.6800, L500.2500, L300.3900, L300.4310 ####[facility] [address] [place], [address] ,Serum,hCG Quali.on 07-30-2024 HCG, SERUM QUAL Negative Normal [facility] Comment on above: Performed By: #### L 100.0100, L700.6800, L500.2500, L300.3900, L300.4310 ####[facility] [address] [place], [address] Prothrombin Time w/INRon INR Coag (PPP) [Relative time] 1.1 {INR} Normal [facility] Comment on above: Performed By: #### L 100.0100, L700.6800, L500.2500, L300.3900, L300.4310 ####[facility] [address] [place], [place], [address] PT Coag (PPP) [Time] 14.0 s Normal 11.7-14.9 [facility] Comment on above: Performed By: #### L 100.0100, L700.6800, L500.2500, L300.3900, L300.4310 ####[facility] [address] 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 All information is from patient report except when noted. This evaluation is NOT intended for forensic, disability or child custody purposes. AGE: [age] year old RACE: White REFERRAL SOURCE: Psychiatrist - Clayton Granados CNP ([facility]). Last visit 08/16/22 CHIEF COMPLAINT: Treatment resistant depression." HPI: Daly is a 37 year old female with a history of Bipolar depression (Bipolar II), ELIJAH.Referred to clinic by psych provider for evaluation for ECT. Current medications are: Lamotrigine 150mg BID; Trazodone 200mg QHS; Zyprexa 10mg QHS; Lexapro 20mg, Prazosin 2mg QHS SOCIAL HISTORY: Patient is the youngest of 2 children. The patient was born and raised in [place]. The patient completed Some college. The patient described their childhood as 'ideal'. The patient lives with a roommate in an house (owned by roommate). Feels safe. No guns The patient has 1 child (10yrs). Shared custody with father. 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 No disability. Service: None Legal: 18 - 2 charges of drug trafficking. No custodial time. No DUI/TRAVON Trauma/Abuse: Denies Psychosocial Supports: [...] psych meds in 2017 2) 2017 @ [place] for SI (pink slipped from crisis line) 3) 2021 - [place] for SI # of past suicide attempts and methods used:OD in 2017 Intensive outpatient program: 2018 at [place] - didn't think it was helpful Residential treatment: Denies Prior Diagnosis: Anxiety Disorder, Bipolar Affective Disorder, Borderline Personality Disorder, and Panic Disorder Prior Provider: Followed by PCP Cosme Boland. Referred to current psych provider. Therapist: Followed at [facility] (practice) by Evans. Monthly check-in Past psychotherapy experience: Extensive Current Occupational Therapist Rehab Manager: None Electroconvulsive therapy (ECT): Denies Transcranial magnetic [...] start on next (more content not included)... [facility] HISTORY PHYSICALon 3 HISTORY PHYSICAL HNO ID: [id number] Author: Esa Guillen APRN.[employer] Service: ? Author Type: Nurse Practitioner Type: [...] REFERRAL SOURCE: Psychiatrist - Clayton Granados CNP ([facility]). Last visit 08/16/22 CHIEF COMPLAINT: Treatment resistant depression." HPI: Daly is a 37 year old female with a history of Bipolar depression (Bipolar II), ELIJAH.Referred to clinic by psych provider for evaluation for ECT. Current medications are: Lamotrigine 150mg BID; Trazodone 200mg QHS; Zyprexa 10mg QHS; Lexapro 20mg, Prazosin 2mg QHS SOCIAL HISTORY: Patient is the youngest of 2 children. The patient was born and raised in [place]. The patient completed Some college. The patient described their childhood as 'ideal'. The patient lives with a roommate in an house (owned by roommate). Feels safe. No guns The patient has 1 child (10yrs). Shared custody with father. 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 No disability. Service: None Legal: 18 - 2 charges of drug trafficking. No custodial time. No DUI/TRAVON Trauma/Abuse: Denies Psychosocial Supports: [...] psych meds in 2017 2) 2017 @ [place] for SI (pink slipped from crisis line) 3) 2021 - for SI # of past suicide attempts and methods used:OD in 2017 Intensive outpatient program: 2018 at [place] - didn't think it was helpful Residential treatment: Denies Prior Diagnosis: Anxiety Disorder, Bipolar Affective Disorder, Borderline Personality Disorder, and Panic Disorder Prior Provider: Followed by PCP Cosme Boland. Referred to current psych provider. Therapist: Followed at [facility] (practice) by Evans. Monthly check-in Past psychotherapy experience: Extensive Current Occupational Therapist Rehab Manager: None Electroconvulsive therapy (ECT): Denies Transcranial magnetic [...] week and st (more content not included)... [facility] 08-24-2022 [facility] Telephone (PSYRL) DALY EVANS ([id number]) 1985 F [facility] Date Time Provider Department 08/24/22 ARIELLA CORTES During your visit today, we recorded the following information about you: Ariella Cortes RN 08/24/2022 1:42 PM Signed INTERNAL ([facility]) ECT Referral Received: 08/18/22 - scanned into [employer] From: Clayton Granados @ [facility] ECT Eval: TBD Left voicemail requesting callback in ECT office at [phone] to schedule ECT eval. Awaiting patient response. Ariella Cortes RN 08/30/2022 12:24 PM Addendum Scheduled ECT Eval scheduled on 09/30/22 @ 10am with Esa Guillen Patient encouraged to contact RN Bell Cleaner at [phone] should any questions or concerns arise between now and then. Ariella Cortes RN 09/30/2022 3:22 PM Signed Patient to receive ECT and related care @ [facility]. MM ECT RN notified AND aware. INTERNAL ([facility]) ECT Referral Received: 08/18/22 - scanned into [facility] From: Clayton Granados @ [facility] ECT Eval: 09/30/22 with Esa Guillen ECT Recommendations: Acute series of ECT x [...] Encounter Status:Closed by ARIELLA CORTES on 08/24/22 [facility] TOX SCREEN ROUT URon 022 Amphetamines Confirm (U) [Mass/Vol] Negative Negative [facility] Barbiturates Urine Negative Negative [facility] Benzodiazepines Urine Negative Negative [facility] Cannabinoids, Urine Positive Abnormal Negative [facility] Cocaine Ql (U) Negative Negative [facility] Ethanol (U) [Mass/Vol] <11 mg/dL [facility] Opiates Screen Ql (U) Negative Negative [facility] oxyCODONE cutoff Screen (U) [Mass/Vol] Negative Negative [facility] Phencyclidine Ql (U) Negative Negative [facility] HEP B SURFACE ANTIGENon 04-28 HEP B SURFACE ANTIGEN Non-Reactive [facility] Comment on above: Result Comment: NONR EACTIVE - NEGATIVE FOR HEPATITIS B SURFACE ANTIGEN Performed By: #### H BSAG, HCVAB, HIV #### [address] [address] HEPATITIS C ABon 05-25-2021 HEPATITIS C AB Non-Reactive Normal [facility] Comment on above: Result Comment: NONR EACTIVE - <0.80 INDEX IS CONSIDERED NEGATIVE FOR IGG ANTIBODIES TO HCV. Performed By: #### M N, ALC #### [address] [address] HIV AG/AB COMBOon 05-25-2021 HIV AG/AB COMBO Non-Reactive [facility] Comment on above: Result Comment: NONR EACTIVE - NEGATIVE FOR ANTIBODIES TO HIV-1 AND HIV-2 AND p24 ANTIGEN. Performed By: #### M N, ALC #### [address] [address] ALCOHOLon 05-21-2021 Ethanol [Mass/Vol] 169.0 mg/dL Normal [facility] Comment on above: Result Comment: < 3 mg/dl NONE DETECTED 50-100 mg/dl MAY SHOW SIGNS OF INTOXICATION 300-500 mg/dl COMATOSE LEVEL Performed By: #### M N, ALC #### [address] [address] CBC with AUTO DIFFon 021 BAS0 % 0.30 % Normal 0-2 [facility] Comment on above: Performed By: #### C BC, DIFF (MANUAL) #### [address] [address] Basophils (Bld) [#/Vol] 0.0 10*3/uL Normal 0-0.1 [facility] Comment on above: Performed By: #### C BC, DIFF (MANUAL) #### [address] [address] Eosinophils (Bld) [#/Vol] 0.0 10*3/uL Normal 0.0-1.80 [facility] Comment on above: Performed By: #### C BC, DIFF (MANUAL) #### [address] [address] Eosinophils/100 WBC (Bld) 0.1 % Normal 0-8 [facility] Comment on above: Performed By: #### C BC, DIFF (MANUAL) #### [address] [address] GRAN # 11.7 K/uL High 2.2-9.1 [facility] Comment on above: Performed By: #### C BC, DIFF (MANUAL) #### [address] [place] [address] GRAN % 79.6 % Normal 42-80 [facility] Comment on above: Performed By: #### C BC, DIFF (MANUAL) #### [address] [address] Hematocrit (Bld) [Volume fraction] 42.0 % Normal 37.0-47.0 [facility] Comment on above: Performed By: #### C BC, DIFF (MANUAL) #### [address] [place] [address] Hemoglobin (Bld) [Mass/Vol] 14.3 g/dL Normal 12.0-16.0 [facility] Comment on above: Performed By: #### C BC, DIFF (MANUAL) #### [address] [address] Lymphocytes (Bld) [#/Vol] 2.2 10*3/uL Normal 1.0-4.0 [facility] Comment on above: Performed By: #### C BC, DIFF (MANUAL) #### [address] [address] Lymphocytes/100 WBC (Bld) 15.1 % Low 16-48 [facility] Comment on above: Performed By: #### C BC, DIFF (MANUAL) #### [address] [address] MCV (RBC) [Entitic vol] 93.2 fL Normal 80-97 [facility] Comment on above: Performed By: #### C BC, DIFF (MANUAL) #### [address] [address] MEAN CORPUSCULAR HGB 31.8 pg Normal 26.0-32.0 [facility] Comment on above: Performed By: #### C BC, DIFF (MANUAL) #### [address] [address] MEAN CORPUSCULAR HGB CONC 34.1 g/dL Normal 31.0-36.0 [facility] Comment on above: Performed By: #### C BC, DIFF (MANUAL) #### [address] [address] Monocytes (Bld) [#/Vol] 0.7 10*3/uL Normal 0.1-1.7 [facility] Comment on above: Performed By: #### C BC, DIFF (MANUAL) #### [facility] [address] [facility] [address] Monocytes/100 WBC (Bld) 4.9 % Normal 3-9 [facility] Comment on above: Performed By: #### C BC, DIFF (MANUAL) #### [address] [place] [address] Platelet mean volume (Bld) [Entitic vol] 6.9 fL Normal 6.6-10.5 [facility] Comment on above: Performed By: #### C BC, DIFF (MANUAL) #### [address] [place] [address] Platelets (Bld) [#/Vol] 418 10*3/uL Normal 140-450 [facility] Comment on above: Performed By: #### C BC, DIFF (MANUAL) #### [address] [place] [address] RBC (Bld) [#/Vol] 4.51 10*6/uL Normal 4.20-5.50 [facility] Comment on above: Performed By: #### C BC, DIFF (MANUAL) #### [address] [place] [address] RED CELL DISTRI WIDTH 13.0 % Normal 11.0-15.5 [facility] Comment on above: Performed By: #### C BC, DIFF (MANUAL) #### [address] [place] [address] WBC (Bld) [#/Vol] 14.7 10*3/uL High 4.0-11.0 [facility] Comment on above: Performed By: #### C BC, DIFF (MANUAL) #### [address] [place] [address] COMPREHENSIVE METABOLIC PANE Derick 05-21-2021 Albumin [Mass/Vol] 3.5 g/dL Normal 3.4-5.0 [facility] Comment on above: Performed By: #### M N, ALC #### [address] [place] [address] Albumin/Globulin [Mass ratio] 0.9 {ratio} Low 1.1-1.8 [facility] Comment on above: Performed By: #### M N, ALC #### [facility] [address] [facility] [place] [address] ALP [Catalytic activity/Vol] 64 U/L Normal 45-117 [facility] Comment on above: Performed By: #### M N, ALC #### [facility] [address] [facility] [address] ALT [Catalytic activity/Vol] 29 U/L Normal 12-78 [facility] Comment on above: Performed By: #### M N, ALC #### [facility] [address] [place] [address] Anion gap [Moles/Vol] 9.0 mmol/L Low 11-23 [facility] Comment on above: Performed By: #### M N, ALC #### [facility] [address] [facility] [address] AST [Catalytic activity/Vol] 20 U/L Normal 15-37 [facility] Comment on above: Performed By: #### M N, ALC #### [facility] [address] [facility] [address] Bilirubin [Mass/Vol] 0.3 mg/dL Normal 0.2-1.0 [facility] Comment on above: Performed By: #### M N, ALC #### [facility] [address] [place] [address] Calcium [Mass/Vol] 8.5 mg/dL Normal 8.5-10.1 [facility] Comment on above: Performed By: #### M N, ALC #### [facility] [address] [facility] [address] Chloride [Moles/Vol] 107 mmol/L Normal 98-107 [facility] Comment on above: Performed By: #### M N, ALC #### [facility] [address] [facility] [address] CO2 [Moles/Vol] 27.0 mmol/L Normal 21-32 [facility] Comment on above: Performed By: #### M N, ALC #### [facility] [address] [facility] [address] Creatinine [Mass/Vol] 0.80 mg/dL Normal 0.55-1.02 [facility] Comment on above: Performed By: #### M N, ALC #### [facility] [address] [facility] [address] GFR > 60.0 Normal [facility] Comment on above: Performed By: #### M N, ALC #### [address] [place] [address] GFR AM > 60.0 Normal [facility] Comment on above: Result Comment: THE NORMAL LEVEL OF GFR VARIES ACCORDING TO AGE, SEX, AND BODY SIZE. A GFR LEVEL OF LESS THAN 60 ML/MIN REPRESENTS LOSS OF THE ADULT LEVEL OF NORMAL KIDNEY FUNCTION. Performed By: #### M N, ALC #### [facility] [address] [facility] [address] Globulin (S) [Mass/Vol] 4.2 g/dL Normal 2.5-4.6 [facility] Comment on above: Performed By: #### M N, ALC #### [facility] [address] [place] [address] Glucose [Mass/Vol] 114 mg/dL High 70-100 [facility] Comment on above: Performed By: #### M N, ALC #### [address] [address] Potassium [Moles/Vol] 3.3 mmol/L Low 3.5-5.1 [facility] Comment on above: Performed By: #### M N, ALC #### [address] [place] [address] Protein [Mass/Vol] 7.7 g/dL Normal 6.0-8.3 [facility] Comment on above: Performed By: #### M N, ALC #### [address] [place] [address] Sodium [Moles/Vol] 140 mmol/L Normal 136-145 [facility] Comment on above: Performed By: #### M N, ALC #### [address] [place] [address] Urea nitrogen [Mass/Vol] 6.0 mg/dL Low 7-18 [facility] Comment on above: Performed By: #### M N, ALC #### [facility] [address] [place] [address] CPKon 05-21-2021 CPK 359 U/L High 26-192 [facility] Comment on above: Performed By: #### C PK #### [address] [place] [address] DIFFERENTIALon 05-21-2021 IMMATURE GRANS NONE SEEN [facility] Comment on above: Performed By: #### C BC, DIFF (MANUAL) #### [facility] [address] [place] [address] PLATELET ESTIMATE NORMAL [facility] Comment on above: Performed By: #### C BC, DIFF (MANUAL) #### [facility] [address] [place] [address] RBC morphology finding Nom (Bld) ESSENTIALLY NORMAL Normal [facility] Comment on above: Performed By: #### C BC, DIFF (MANUAL) #### [facility] [address] [place] [address] Band form neutrophils/100 WBC (Bld) 6 % Normal 0-10 [facility] Comment on above: Performed By: #### C BC, DIFF (MANUAL) #### [address] [place] [address] Eosinophils/100 WBC (Bld) 1 % Normal 0-8 [facility] Comment on above: Performed By: #### C BC, DIFF (MANUAL) #### [address] [place] [address] Lymphocytes/100 WBC (Bld) 11 % Low 16-48 [facility] Comment on above: Performed By: #### C BC, DIFF (MANUAL) #### [address] [place] [address] Monocytes/100 WBC (Bld) 6 % Normal 3-9 [facility] Comment on above: Performed By: #### C BC, DIFF (MANUAL) #### [address] [place] [address] Neutrophils/100 WBC (Bld) 76 % Normal 42-80 [facility] Comment on above: Performed By: #### C BC, DIFF (MANUAL) #### [address] [place] [address] TOTAL CELLS COUNTED 100 #CELLS Normal [facility] Comment on above: Performed By: #### C BC, DIFF (MANUAL) #### [address] [place] [address] ED.PDOCon 05-21-2021 ED.PDOC DALY EVANS [id number] Attending provider: [facility] [id number] Bebeto Tafoya 1985 35 DOS: 05/21/21 Hx/Exam [...] suicidal 05/21/21 06:56 (Bebeto Tafoya) 05/21/21 09:51 LOVER,DALY A Female [id number] Ordering physician: Yohana Bennett LOC:ER [id number] Attending physician: 1985 35 DO S: 05/21/21 Acc#: [id number] Exam/Proc: HEAD W/O CONTRAST Dept: COMPUTED TOMOGRAPHY EXAMINATION: CT OF THE HEAD WITHOUT RTVCSDWA09/25/2021 8:[address] HEAD/BRAIN WITHOUT CONTRAST COMPARISON: [...] 05/21/2021 8:33:15 AM EST Workstation ID : [id number] REPORT SIGNATURE ON FILE Electronically Signed Date/Time: [...] police report and notes to this point. [place] slip written based on patient self-harm, statement of wanti (more content not included)... Normal [facility] HCG URINEon 05-21-2021 Beta HCG ( test) Ql (U) Negative [facility] Comment on above: Order Comment: What Is Urine Source? Clean Catch [place] Performed By: #### H CGUR #### [address] [address] HEAD W/O CONTRASTon 05-21-20 21 HEAD W/O CONTRAST DALY EVANS [id number] Ordering physician: Yohana Bennett LOC:ER [id number] Attending physician: 1985 35 DO S: 05/21/21 Acc#: [id number] Exam/Proc: HEAD W/O CONTRAST Dept: COMPUTED TOMOGRAPHY EXAMINATION: CT OF THE HEAD WITHOUT UVUIMMHQ41/25/2021 8:[address] HEAD/BRAIN WITHOUT CONTRAST COMPARISON: [...] 05/21/2021 8:33:15 AM EST Workstation ID : [id number] REPORT SIGNATURE ON FILE Electronically Signed Date/Time: 05/21/21832 Dictated Date/time: 05/21/21829 CC: Normal [facility] URINE DRUG SCREENon 05-21-20 21 AMPHETAMINES Positive Abnormal [facility] Comment on above: Order Comment: What Is Urine Source? Random Performed By: #### U DRGS #### [address] [address] Other Comment: URINE DRUG SCREENS ARE FOR [...] and can be ordered separately. BARBITURATES Negative [facility] Comment on above: Order Comment: What Is Urine Source? Random Performed By: #### U DRGS #### [facility] [address] [place] [address] Other Comment: URINE DRUG SCREENS ARE FOR [...] and can be ordered separately. BENZODIAZEPINES Negative [facility] Comment on above: Order Comment: What Is Urine Source? Random Performed By: #### U DRGS #### [facility] [address] [place] [address] Other Comment: URINE DRUG SCREENS ARE FOR [...] and can be ordered separately. COCAINE Negative [facility] Comment on above: Order Comment: What Is Urine Source? Random Performed By: #### U DRGS #### [address] [address] Other Comment: URINE DRUG SCREENS ARE FOR [...] and can be ordered separately. METHADONE Negative [facility] Comment on above: Order Comment: What Is Urine Source? Random Performed By: #### U DRGS #### [address] [address] Other Comment: URINE DRUG SCREENS ARE FOR [...] and can be ordered separately. OPIATES Negative [facility] Comment on above: Order Comment: What Is Urine Source? Random Performed By: #### U DRGS #### [address] [address] Other Comment: URINE DRUG SCREENS ARE FOR [...] and can be ordered separately. PHENCYCLIDINE Negative [facility] Comment on above: Order Comment: What Is Urine Source? Random Performed By: #### U DRGS #### [facility] [address] [place] [address] Other Comment: URINE DRUG SCREENS ARE FOR [...] and can be ordered separately. THC Negative [facility] Comment on above: Order Comment: What Is Urine Source? Random Performed By: #### U DRGS #### [facility] [address] [place] [address] Other Comment: URINE DRUG SCREENS ARE FOR [...] DRG SCREEN CUT OFF SEE BELOW Normal [facility] Comment on above: Order Comment: What Is Urine Source? Random Performed By: #### U DRGS #### [address] [address] Other Comment: URINE DRUG SCREENS ARE FOR [...] be ordered separately. WRIST-LEFT CMPL MIN 3 VIEWS n 05-21-2021 WRIST-LEFT CMPL MIN 3 VIEWS DALY EVANS Female [id number] Ordering physician: Yohana Bennett LOC:ER [id number] Attending physician: 1985 35 DO S: 05/21/21 Acc#: [id number] Exam/Proc: WRIST-LEFT CMPL MIN 3 VIEWS Dept: [...] 05/21/2021 8:50:09 AM EST Workstation ID : [id number] REPORT SIGNATURE ON FILE Electronically Signed Date/Time: 05/21/21 0850 Dictated Date/time: 05/21/21 0843 CC: [facility] XR Knee - left 4 Viewson IMPRESSION: Findings are suggestive of mild degenerative changes in the left knee. Actuarial Technician: NANCY Transcribe Date/Time: Mar 12 2021 11:00A Dictated by : MATTY CASTELLON MD This examination was interpreted and the report reviewed and electronically signed by: MATTY CASTELLON MD on Mar 12 2021 11:01AM [facility] DIVISION OF RADIOLOGY * * [...] mild degenerative changes in the left knee. Actuarial Technician: PSCB Transcribe Date/Time: Mar 12 2021 11:00A Dictated by : MATTY CASTELLON MD This examination was interpreted and the report reviewed and electronically signed by: MATTY CASTELLON MD on Mar 12 2021 11:01AM EST [facility] Radiology Study observation (narrative) [facility] XR Knee - left 4 ViewsOrdere d By: Ccf Provider on 03-12-2021 [facility] TS GELon 02-07-2018 TS GEL ABO Group: O Rh, Gel: POS Antibody Screen Gel: NEG Normal [facility] Comment on above: Performed By: #### T SGL ####[address] [place] [address] Basic Metabolic Panelon 01-25 Anion gap 3 molar conc 8 Normal [facility] [employer] [facility] Comment on above: Performed By: #### H EMDF, ESR, PT/AP, LACT3, QWNT, CRP2, BMP3 ####[employer] [employer] [place], [place] Calcium mass conc 8.8 mg/dL Normal 8.4-10.4 [facility] Comment on above: Performed By: #### H EMDF, ESR, PT/AP, LACT3, QWNT, CRP2, BMP3 ####[address] [place], [place] CO2 molar conc 24 mmol/L Normal 22-30 [facility] Comment on above: Performed By: #### H EMDF, ESR, PT/AP, LACT3, QWNT, CRP2, BMP3 ####[address] Glucose mass conc 89 mg/dL Normal 70-100 [facility] Comment on above: Performed By: #### H EMDF, ESR, PT/AP, LACT3, QWNT, CRP2, BMP3 ####[address] Urea nitrogen mass conc 10 mg/dL Normal 7-20 [facility] Comment on above: Performed By: #### H EMDF, ESR, PT/AP, LACT3, QWNT, CRP2, BMP3 ####[address] Creatinine mass conc 0.67 mg/dL Normal 0.52-1.25 [facility] Comment on above: Performed By: #### H EMDF, ESR, PT/AP, LACT3, QWNT, CRP2, BMP3 ####[address] GFR/1.73 sq M predicted among blacks MDRD vol rate/area (S/P/Bld) mL/min/{1.73_m2} Normal >60 [facility] Comment on above: Performed By: #### H EMDF, ESR, PT/AP, LACT3, QWNT, CRP2, BMP3 ####[address] [place], [place] GFR/1.73 sq M predicted among non-blacks MDRD vol rate/area (S/P/Bld) mL/min/{1.73_m2} Normal >60 [facility] Comment on above: Result Comment: Sour ce- MDRD equation with creatinine calibration to IDMS(NKDEP) eGFR not recommended for drug dose adjustment Performed By: #### H EMDF, ESR, PT/AP, LACT3, QWNT, CRP2, BMP3 ####[employer] [place], [place] Chloride molar conc 108 mmol/L High 98-107 [facility] Comment on above: Performed By: #### H EMDF, ESR, PT/AP, LACT3, QWNT, CRP2, BMP3 ####[employer] [place] [address] Potassium molar conc 3.7 mmol/L Normal 3.5-5.1 [facility] Comment on above: Performed By: #### H EMDF, ESR, PT/AP, LACT3, QWNT, CRP2, BMP3 ####[employer] [place] [address] Sodium molar conc 140 mmol/L Normal 137-145 [facility] Comment on above: Performed By: #### H EMDF, ESR, PT/AP, LACT3, QWNT, CRP2, BMP3 ####[employer] [place] [address] C-Reactive Proteinon 018 CRP mass conc 9.4 mg/L High 0.0-6.0 [facility] Comment on above: Result Comment: . Performed By: #### H EMDF, ESR, PT/AP, LACT3, QWNT, CRP2, BMP3 ####[facility] [place] [place] Hemogram w/ Autodiffon 02-06 Abs Baso Cnt 0.0 10*3/uL Normal 0.0-0.2 [facility] Comment on above: Performed By: #### H EMDF, ESR, PT/AP, LACT3, QWNT, CRP2, BMP3 ####[address] Abs Neutrophile Cnt 4.8 10*3/uL Normal 1.8-7.0 [facility] Comment on above: Performed By: #### H EMDF, ESR, PT/AP, LACT3, QWNT, CRP2, BMP3 ####[address] Basophils/100 WBC Auto (Bld) 0.3 % Normal 0.0-2.0 [facility] Comment on above: Performed By: #### H EMDF, ESR, PT/AP, LACT3, QWNT, CRP2, BMP3 ####[address] Eosinophils Auto #/vol (Bld) 0.1 10*3/uL Normal 0.0-0.5 [facility] Comment on above: Performed By: #### H EMDF, ESR, PT/AP, LACT3, QWNT, CRP2, BMP3 ####[address] Eosinophils/100 WBC Auto (Bld) 1.7 % Normal 1.0-6.0 [facility] Comment on above: Performed By: #### H EMDF, ESR, PT/AP, LACT3, QWNT, CRP2, BMP3 ####[address] Erythrocyte distribution width Auto Ratio (RBC) 14.5 % Normal 11.5-14.5 [facility] Comment on above: Performed By: #### H EMDF, ESR, PT/AP, LACT3, QWNT, CRP2, BMP3 ####[address] Granulocytes/100 WBC (Bld) 62.0 % Normal 40.0-80.0 [facility] Comment on above: Performed By: #### H EMDF, ESR, PT/AP, LACT3, QWNT, CRP2, BMP3 ####[address] Hematocrit Auto Volume Fraction (Bld) 40.4 % Normal 35.0-47.0 [facility] Comment on above: Performed By: #### H EMDF, ESR, PT/AP, LACT3, QWNT, CRP2, BMP3 ####[address] [place], [place] Hemoglobin mass conc (Bld) 13.7 g/dL Normal 11.7-16.0 [facility] Comment on above: Performed By: #### H EMDF, ESR, PT/AP, LACT3, QWNT, CRP2, BMP3 ####[address] Lymphocytes Auto #/vol (Bld) 2.3 10*3/uL Normal 1.0-4.3 [facility] Comment on above: Performed By: #### H EMDF, ESR, PT/AP, LACT3, QWNT, CRP2, BMP3 ####[address] Lymphocytes/100 WBC Auto (Bld) 29.4 % Normal 20.0-40.0 [facility] Comment on above: Performed By: #### H EMDF, ESR, PT/AP, LACT3, QWNT, CRP2, BMP3 ####[address] MCH Auto Entitic mass (RBC) 31.2 pg Normal 26.0-34.0 [facility] Comment on above: Performed By: #### H EMDF, ESR, PT/AP, LACT3, QWNT, CRP2, BMP3 ####[address] [place], [place] MCHC Auto mass conc (RBC) 33.9 % Normal 32.0-36.0 [facility] Comment on above: Performed By: #### H EMDF, ESR, PT/AP, LACT3, QWNT, CRP2, BMP3 ####[address] MCV Auto Entitic volume (RBC) 92.2 fL Normal 79.0-98.0 [facility] Comment on above: Performed By: #### H EMDF, ESR, PT/AP, LACT3, QWNT, CRP2, BMP3 ####[address] [place], [place] Monocytes Auto #/vol (Bld) 0.5 10*3/uL Normal 0.0-0.8 [facility] Comment on above: Performed By: #### H EMDF, ESR, PT/AP, LACT3, QWNT, CRP2, BMP3 ####[address] [place], [place] Monocytes/100 WBC Auto (Bld) 6.6 % Normal 2.0-10.0 [facility] Comment on above: Performed By: #### H EMDF, ESR, PT/AP, LACT3, QWNT, CRP2, BMP3 ####[address] Platelet mean volume Auto Entitic volume (Bld) 7.8 fL Normal 7.4-10.4 [facility] Comment on above: Performed By: #### H EMDF, ESR, PT/AP, LACT3, QWNT, CRP2, BMP3 ####[address] [place], [place] Platelets Auto #/vol (Bld) 282 10*3/uL Normal 140-440 [facility] Comment on above: Performed By: #### H EMDF, ESR, PT/AP, LACT3, QWNT, CRP2, BMP3 ####[address] [place], [place] RBC Auto #/vol (Bld) 4.38 10*6/uL Normal 3.80-5.20 [facility] Comment on above: Performed By: #### H EMDF, ESR, PT/AP, LACT3, QWNT, CRP2, BMP3 ####[address] [place], [place] WBC Auto #/vol (Bld) 7.8 10*3/uL Normal 3.6-10.7 [facility] Comment on above: Performed By: #### H EMDF, ESR, PT/AP, LACT3, QWNT, CRP2, BMP3 ####[facility] [employer] [place] [address] Lactic Acidon 02-06-2018 Lactate molar conc 0.6 mmol/L Low 0.7-2.0 [facility] Comment on above: Performed By: #### H EMDF, ESR, PT/AP, LACT3, QWNT, CRP2, BMP3 ####[facility] [employer] [place], [place] Protime AND APTTon 8 INR Coag RelTime (PPP) 1.0 Normal 0.9-1.1 [facility] Comment on above: Result Comment: Soy [...] CRP2, BMP3 ####[facility] [employer] [id number] [place], [place] Prothrombin time (PT) Coag time (PPP) 10.4 s Normal 9.0-12.0 [facility] Comment on above: Result Comment: . Performed By: #### H EMDF, ESR, PT/AP, LACT3, QWNT, CRP2, BMP3 ####[facility] [employer] [id number] [place], [place] aPTT Coag time (Bld) 24.1 s Normal 20.0-30.5 [facility] Comment on above: Result Comment: NOTE : The therapeutic time for Heparin anticoagulation,based on Xa activity inhibition, is an APTT of 46-80seconds. Performed By: #### H EMDF, ESR, PT/AP, LACT3, QWNT, CRP2, BMP3 ####[facility] [place] [address] Sed Rateon 02-06-2018 Sed Rate 13 mm/h Normal 0-20 [facility] Comment on above: Performed By: #### H EMDF, ESR, PT/AP, LACT3, QWNT, CRP2, BMP3 ####[facility] [place] [address] hCG Quantitativeon 8 hCG Quantitative < 2 Normal < 3 [facility] Comment on above: Performed By: #### H EMDF, ESR, PT/AP, LACT3, QWNT, CRP2, BMP3 ####[place] [address] [place] [address] History And Physical-Dictate don 01-03-[address] [facility], [place] [address]FSZQDALY BRADY [facility] [id number] 1983ADMIT 12/08/2017DISCH 12/13/2017DISCHARGE SUMMARYREASON FOR ADMISSIONDaly Evans is a 32 years young, single female who was admitted asan emergency from [facility] on 12/08/2017 with history of increasingdepression and suicidal ideations. She reported multiple psychosocial issuesincluding recent break-up with a boyfriend, loss of adequate housing andunemployment since May,. She is also a single mother of a 5-year-old son. She was contemplating to take an overdose when she call [facility]'s crisis hotline, and following evaluation at [facility] emergency room, she was admitted [...] at bedtime, Seroquel 300 mg at bedtime, Sfofwqdu71 mg at bedtime and trazodone 100 mg [...] and [facility] [place] [place].CONDITION AT TIME OF DISCHARGEImproved.LEOBARDO GEORGE, ONEAL 01/03/2018 11:07 [id number] 01/03/2018 11:21 CPP/MODLElectronically Signed By Zakiya George M.D. on 07 Jan 2018 17:56:48 GMT Normal [facility] History And Physical-Dictated [facility], [place] [address]ANOU DALY EVANS [facility] [id number] 1983ADMIT 12/08/2017HISTORY AND PHYSICALIDENTIFICATION DATADaly Evans is a 74-pkcly-mqwvb single, female who was admitted asan emergency from [facility] on 12/08/2017.CHIEF COMPLAINT"[facility] and suicidal ideations. Next thing Iknow, they sent police after me."PRESENT PSYCHIATRIC HISTORYDaly reported that she has been [...] suicide by taking an overdose, she called [facility], [facility]. She reported that prior to thisadmission she was taking a number of medications as prescribed by nursepractitioner at [facility]. She was unable to identify all themedication and the strength.FAMILY HISTORYShe denied any knowledge of psychiatric illness in the family. However, shedid report that her only sibling, a brother, has Asperger syndrome andcurrently he lives at home with his parents.PAST PSYCHIATRIC HISTORYShe reported that she has been receiving outpatient treatment at [facility] off and on since the age of 13.She reported that she was admitted to [facility] in October 2017for 7 days following an overdose of trazodone, Prozac, and Lamictal.PERSONAL HISTORYShe is a 75-lugem-abf young single, female, and mother of a [...] to 7 days.ZAKIYA GEORGE, MDD 12/09/2017 11:05 [id number] 12/09/2017 11:34 CPP/MODLElectronically Signed By Zakiya George M.D. on 11 Dec 2017 17:30:[address] [facility] Protein [facility], [place] [address]QDPI DALY EVANS [facility] [id number] 1983DATE 12/12/2017PROGRESS NOTEDaly was seen individually and [...] counseled and encouraged to continue with current treatmentplans.ZKAIYA GEORGE, ONEAL 12/12/2017 11:18 [id number] 12/12/2017 17:11 CPP/MODLElectronically Signed By Zakiya George M.D. on 14 Dec 2017 21:36:[address] [facility] Lipid Panelon 12-09-2017 Cholesterol 168 mg/dL Normal 100-199 [facility] Comment on above: Performed By: #### T SH, LIPID ####Unless otherwise noted, all testing performed by [address] [id number]: [id number] Director: Willis Paulino M.D. Cholesterol in VLDL mass conc 21 mg/dL Normal 5-40 [facility] Comment on above: Performed By: #### T SH, LIPID ####Unless otherwise noted, all testing performed by [address] [id number]: [id number] Director: Willis Paulino M.D. Cholesterol to HDL Ratio 2.7 {ratio} Low 3.2-5.0 [facility] Comment on above: Result Comment: Jaqui palacio Coronary Heart Disease Risk Factor (CHDRF):Average risk= 4.41/2 Average risk= 3.32 times Average risk= 7.1 Performed By: #### T SH, LIPID ####Unless otherwise noted, all testing performed by [address] [id number]: [id number] Director: Willis Paulino M.D. HDL Cholesterol 62 mg/dL High 40-59 [facility] Comment on above: Performed By: #### T SH, LIPID ####Unless otherwise noted, all testing performed by [address] [id number]: [id number] Director: Willis Paulino M.D. LDL Cholesterol 86 mg/dL Normal 10-150 [facility] Comment on above: Performed By: #### T SH, LIPID ####Unless otherwise noted, all testing performed by [address], [place] [id number]: [id number] Director: Willis Paulino M.D. Triglyceride 105 mg/dL Normal 25-120 [facility] Comment on above: Performed By: #### T SH, LIPID ####Unless otherwise noted, all testing performed by [address] [id number]: [id number] Director: Willis Paulino M.D. TSHon 12-09-2017 Thyroid stimulating hormone (TSH) 1.70 uIU/mL Normal 0.320-5.000 [facility] Comment on above: Result Comment: Samp les from patients routinely receiving high dose biotin therapy(100-300 mg/day) may show falsely decreased results. Please correlateclinically. Performed By: #### T SH, LIPID ####Unless otherwise noted, all testing performed by [address] [id number]: [id number] Director: Willis Paulino M.D. Urinalysis, Routineon 2017 Bilirubin,Urine Negative Normal NEG;NEGATIV E [facility] Comment on above: Performed By: #### U A ####Unless otherwise noted, all testing performed by [address] [id number]: [id number] Director: Willis Paulino M.D. Blood,Urine Negative Normal NEG;NEGATIV E [facility] Comment on above: Performed By: #### U A ####Unless otherwise noted, all testing performed by [address] [phone]: [id number] Director: Willis Paulino M.D. Character Clear Normal [facility] Comment on above: Performed By: #### U A ####Unless otherwise noted, all testing performed by [address] [phone]: [id number] Director: Willis Paulino M.D. Ketone,Urine Negative Normal NEG;NEGATIV E [facility] Comment on above: Performed By: #### U A ####Unless otherwise noted, all testing performed by [place] [id number]: [id number] Director: Willis Paulino M.D. Leuk.Esterase,Urine Negative Normal Negative [facility] Comment on above: Performed By: #### U A ####Unless otherwise noted, all testing performed by [address] [phone]: [id number] Director: Willis Paulino M.D. Nitrite,Urine Negative Normal NEG;NEGATIV E [facility] Comment on above: Performed By: #### U A ####Unless otherwise noted, all testing performed by [phone]: [id number] Director: Willis Paulino M.D. Protein,Urine Negative Normal NEG;NEGATIV E [facility] Comment on above: Performed By: #### U A ####Unless otherwise noted, all testing performed by [address] [phone]: [id number] Director: Willis Paulino M.D. Specific [place],Urine 1.006 Normal 1.003-1.029 [facility] Comment on above: Performed By: #### U A ####Unless otherwise noted, all testing performed by [address] [id number]: [id number] Director: Willis Paulino M.D. Squamous Epithelial 2 /HPF Normal 0-40 [facility] Comment on above: Performed By: #### U A ####Unless otherwise noted, all testing performed by [address] [id number]: [id number] Director: Willis Paulino M.D. Urine, color Yellow Normal [facility] Comment on above: Performed By: #### U A ####Unless otherwise noted, all testing performed by [address] [id number]: [id number] Director: Willis Paulino M.D. Urine, glucose presence Negative Normal NEG;NEGATIV E [facility] Comment on above: Performed By: #### U A ####Unless otherwise noted, all testing performed by [address] [phone]: [id number] Director: Willis Paulino M.D. Urine, leukocytes in sedmiment /[HPF] Normal 0-5 [facility] Comment on above: Performed By: #### U A ####Unless otherwise noted, all testing performed by [address] [phone]: [id number] Director: Willis Paulino M.D. Urine, pH 7.0 [pH] Normal 4.5-8.0 [facility] Comment on above: Performed By: #### U A ####Unless otherwise noted, all testing performed by [address] [id number]: [id number] Director: Willis Paulino M.D. Urobilinogen,Urine < 2.0 Normal <2 [facility] Comment on above: Performed By: #### U A ####Unless otherwise noted, all testing performed by [address] [phone]: [id number] Director: Willis Paulino M.D. Vital Signs Date Time Vital Sign Value Performing Clinician Facility 03-01-2025 10:40-0400 Body mass index (BMI) [Ratio] 28.97 kg/m2 Xochilt Gaston GERIATRIC SOCIAL WORK PROFESSOR.MANUFACTURING MILLWRIGHT Work Phone: [facility] 03-01-2025 10:40-0400 Body weight 83.92 kg Xochilt Gaston GERIATRIC SOCIAL WORK PROFESSOR.MANUFACTURING MILLWRIGHT Work Phone: [facility] 03-01-2025 10:40-0400 Diastolic blood pressure 70 mm[Hg] Xochilt luis GERIATRIC SOCIAL WORK PROFESSOR.MANUFACTURING MILLWRIGHT Work Phone: [facility] 03-01-2025 10:40-0400 Heart rate 102 /min Xochilt Gaston GERIATRIC SOCIAL WORK PROFESSOR.MANUFACTURING MILLWRIGHT Work Phone: [facility] 03-01-2025 10:40-0400 Respiratory rate 16 /min Xochilt Gaston GERIATRIC SOCIAL WORK PROFESSOR.MANUFACTURING MILLWRIGHT Work Phone: [facility] 03-01-2025 10:40-0400 SaO2% (BldA) [Mass fraction] 97 % Xochilt Gaston GERIATRIC SOCIAL WORK PROFESSOR.MANUFACTURING MILLWRIGHT Work Phone: [facility] 03-01-2025 10:40-0400 Systolic blood pressure 118 mm[Hg] Xochilt Rubioman GERIATRIC SOCIAL WORK PROFESSOR.MANUFACTURING MILLWRIGHT Work Phone: [facility] 01-28-2025 14:18-0400 Body mass index (BMI) [Ratio] 27.06 kg/m2 Ed Odessa GERIATRIC SOCIAL WORK PROFESSOR.MANUFACTURING MILLWRIGHT Work Phone: [facility] 01-28-2025 14:18-0400 Body weight 78.38 kg Ed Odessa GERIATRIC SOCIAL WORK PROFESSOR.MANUFACTURING MILLWRIGHT Work Phone: [facility] 01-28-2025 14:18-0400 Diastolic blood pressure 64 mm[Hg] Ed Odessa GERIATRIC SOCIAL WORK PROFESSOR.MANUFACTURING MILLWRIGHT Work Phone: [facility] 01-28-2025 14:18-0400 Heart rate 112 /min Ed Odessa GERIATRIC SOCIAL WORK PROFESSOR.MANUFACTURING MILLWRIGHT Work Phone: [facility] 01-28-2025 14:18-0400 Respiratory rate 14 /min Ed Odessa GERIATRIC SOCIAL WORK PROFESSOR.MANUFACTURING MILLWRIGHT Work Phone: [facility] 01-28-2025 14:18-0400 SaO2% (BldA) [Mass fraction] 98 % Ed Odessa GERIATRIC SOCIAL WORK PROFESSOR.MANUFACTURING MILLWRIGHT Work Phone: [facility] 01-28-2025 14:18-0400 Systolic blood pressure 112 mm[Hg] Ed Odessa GERIATRIC SOCIAL WORK PROFESSOR.MANUFACTURING MILLWRIGHT Work Phone: [facility] 01-10-2025 13:57-0400 Body mass index (BMI) [Ratio] 29.09 kg/m2 Ed Odessa GERIATRIC SOCIAL WORK PROFESSOR.MANUFACTURING MILLWRIGHT Work Phone: [facility] 01-10-2025 13:57-0400 Body weight 84.28 kg Ed Odessa GERIATRIC SOCIAL WORK PROFESSOR.MANUFACTURING MILLWRIGHT Work Phone: [facility] 01-10-2025 13:57-0400 Diastolic blood pressure 60 mm[Hg] Ed Odessa GERIATRIC SOCIAL WORK PROFESSOR.MANUFACTURING MILLWRIGHT Work Phone: [facility] 01-10-2025 13:57-0400 Heart rate 84 /min Ed Odessa GERIATRIC SOCIAL WORK PROFESSOR.MANUFACTURING MILLWRIGHT Work Phone: [facility] 01-10-2025 13:57-0400 SaO2% (BldA) [Mass fraction] 99 % Ed Saxena GERIATRIC SOCIAL WORK PROFESSOR.MANUFACTURING MILLWRIGHT Work Phone: [facility] 01-10-2025 13:57-0400 Systolic blood pressure 90 mm[Hg] Ed Sxaena GERIATRIC SOCIAL WORK PROFESSOR.MANUFACTURING MILLWRIGHT Work Phone: [facility] 01-09-2025 11:00-0400 Body mass index (BMI) [Ratio] 29.59 kg/m2 Research Coordinator [facility] 01-09-2025 11:00-0400 Body weight 85.73 kg Research Coordinator [facility] Comment on above: per patient report using home weight [facility] 12-31-2024 09:50-0400 Body height 170.2 cm Kirit Devine MD Work Phone: [facility] 12-31-2024 09:50-0400 Body mass index (BMI) [Ratio] 29.62 kg/m2 Kirit Devine MD Work Phone: [facility] 12-31-2024 09:50-0400 Body temperature 97.39 [degF] Kirit Devine MD Work Phone: [facility] 12-31-2024 09:50-0400 Body weight 85.8 kg Kirit Devine MD Work Phone: [facility] 12-31-2024 09:50-0400 Diastolic blood pressure 77 mm[Hg] Kirit Devine MD Work Phone: [facility] 12-31-2024 09:50-0400 Heart rate 111 /min Kirit Devine MD Work Phone: [facility] 12-31-2024 09:50-0400 Respiratory rate 18 /min Kirit Devine MD Work Phone: [facility] 12-31-2024 09:50-0400 SaO2% (BldA) [Mass fraction] 98 % Kirit Devine MD Work Phone: [facility] 12-31-2024 09:50-0400 Systolic blood pressure 106 mm[Hg] Kirit Caldwell Work Phone: [facility] 12-12-2024 19:56-0400 SaO2% (BldA) [Mass fraction] 98 % COSME BOLAND [facility] Comment on above: Order Comment: Specimen Type: ARTERIAL B LOOD SPECIMENOrdering Facility: [facility] Address: [address] [place] [address] Performed By: #### A LLBG ####[facility] [id number] [address] 12-12-2024 18:09-0400 SaO2% (BldA) [Mass fraction] 99 % COSME BOLAND [facility] Comment on above: Order Comment: Specimen Type: ARTERIAL B LOOD SPECIMENOrdering Facility: [facility] Address: [address] [place] [address] Performed By: #### A LLBG ####[facility] [id number] [address] 12-12-2024 14:39-0400 SaO2% (BldA) [Mass fraction] 100 % COSME BOLAND [facility] Comment on above: Order Comment: Specimen Type: ARTERIAL B LOOD SPECIMENOrdering Facility: [facility] Address: [address] [place] [address] Performed By: #### A LLMG ####[facility] [id number] [place] [id number] [facility] 12-12-2024 14:06-0400 SaO2% (BldA) [Mass fraction] 100 % COSME BOLAND [facility] Comment on above: Order Comment: Specimen Type: ARTERIAL B LOOD SPECIMENOrdering Facility: [facility] Address: [address] [place] [address] Performed By: #### A LLMG ####[facility] [id number] [place] [id number] [facility] 12-12-2024 13:31-0400 SaO2% (BldA) [Mass fraction] 100 % COSME BOLAND [facility] Comment on above: Order Comment: Specimen Type: ARTERIAL B LOOD SPECIMENOrdering Facility: [facility] Address: [address] [place] [address] Performed By: #### A LLMG ####[facility] [id number] [place] [id number] [facility] 12-12-2024 11:41-0400 SaO2% (BldA) [Mass fraction] 100 % COSME BOLAND [facility] Comment on above: Order Comment: Specimen Type: ARTERIAL B LOOD SPECIMENOrdering Facility: [facility] Address: [address] [place] [address] Performed By: #### A LLMG ####[facility] [id number] [place] [id number] [facility] 12-12-2024 10:00-0400 SaO2% (BldA) [Mass fraction] 99 % COSME BOLAND [facility] Comment on above: Order Comment: Specimen Type: ARTERIAL B LOOD SPECIMENOrdering Facility: [facility] Address: [address] [place] [address] Performed By: #### A LLMG ####[facility] [id number] [place] [id number] [place] [facility] 10-02-2024 15:02-0400 Body height 169.5 cm Martín Pendleton DO Work Phone: [facility] 10-02-2024 15:02-0400 Body mass index (BMI) [Ratio] 32.21 kg/m2 Martín Pendleton DO Work Phone: [facility] 10-02-2024 15:02-0400 Body temperature 97.81 [degF] Martín Pendleton DO Work Phone: [facility] 10-02-2024 15:02-0400 Body weight 92.53 kg Martín Masci DO Work Phone: [facility] 10-02-2024 15:02-0400 Diastolic blood pressure 72 mm[Hg] Martín Masci DO Work Phone: [facility] 10-02-2024 15:02-0400 Heart rate 114 /min Martín Masci DO Work Phone: [facility] 10-02-2024 15:02-0400 SaO2% (BldA) [Mass fraction] 99 % Martín Masci DO Work Phone: [facility] 10-02-2024 15:02-0400 Systolic blood pressure 101 mm[Hg] Martín Masci DO Work Phone: [facility] 09-19-2024 12:21-0400 Diastolic blood pressure 92 mm[Hg] Angela Blackwood APRN.MANUFACTURING MILLWRIGHT Work Phone: [facility] 09-19-2024 12:21-0400 Heart rate 114 /min Angela Blackwood APRN.MANUFACTURING MILLWRIGHT Work Phone: [facility] 09-19-2024 12:21-0400 SaO2% (BldA) [Mass fraction] 96 % Angela Blackwood APRN.MANUFACTURING MILLWRIGHT Work Phone: [facility] 09-19-2024 12:21-0400 Systolic blood pressure 132 mm[Hg] Angela Blackwood APRN.MANUFACTURING MILLWRIGHT Work Phone: [facility] 08-16-2024 09:09-0500 Body mass index (BMI) [Ratio] 33.21 kg/m2 Xochilt Gaston APRN.MANUFACTURING MILLWRIGHT Work Phone: [facility] 08-16-2024 09:09-0500 Body temperature 97.5 [degF] Xochilt Gaston APRN.MANUFACTURING MILLWRIGHT Work Phone: [facility] 08-16-2024 09:09-0500 Body weight 98.25 kg Xochilt Gaston APRN.MANUFACTURING MILLWRIGHT Work Phone: [facility] 08-16-2024 09:09-0500 Diastolic blood pressure 64 mm[Hg] Xochilt Stutzma n GERIATRIC SOCIAL WORK PROFESSOR.MANUFACTURING MILLWRIGHT Work Phone: [facility] 08-16-2024 09:09-0500 Heart rate 104 /min Xochilt Marilin GERIATRIC SOCIAL WORK PROFESSOR.MANUFACTURING MILLWRIGHT Work Phone: [facility] 08-16-2024 09:09-0500 SaO2% (BldA) [Mass fraction] 98 % Xochilt Marilin GERIATRIC SOCIAL WORK PROFESSOR.MANUFACTURING MILLWRIGHT Work Phone: [facility] 08-16-2024 09:09-0500 Systolic blood pressure 106 mm[Hg] Xochilt Marilin GERIATRIC SOCIAL WORK PROFESSOR.MANUFACTURING MILLWRIGHT Work Phone: [facility] 08-07-2024 09:40-0500 Body height 172 cm Xochilt Marilin GERIATRIC SOCIAL WORK PROFESSOR.MANUFACTURING MILLWRIGHT Work Phone: [facility] 08-07-2024 09:40-0500 Body mass index (BMI) [Ratio] 33.12 kg/m2 Xochilt Marilin GERIATRIC SOCIAL WORK PROFESSOR.MANUFACTURING MILLWRIGHT Work Phone: [facility] 08-07-2024 09:40-0500 Body weight 97.98 kg Xochilt Marilin GERIATRIC SOCIAL WORK PROFESSOR.MANUFACTURING MILLWRIGHT Work Phone: [facility] 08-07-2024 09:40-0500 Diastolic blood pressure 72 mm[Hg] Xochilt Stutzma n GERIATRIC SOCIAL WORK PROFESSOR.MANUFACTURING MILLWRIGHT Work Phone: [facility] 08-07-2024 09:40-0500 Heart rate 106 /min Xochilt Marilin GERIATRIC SOCIAL WORK PROFESSOR.MANUFACTURING MILLWRIGHT Work Phone: [facility] 08-07-2024 09:40-0500 SaO2% (BldA) [Mass fraction] 96 % Xochilt Marilin GERIATRIC SOCIAL WORK PROFESSOR.MANUFACTURING MILLWRIGHT Work Phone: [facility] 08-07-2024 09:40-0500 Systolic blood pressure 108 mm[Hg] Xochlit Marilin GERIATRIC SOCIAL WORK PROFESSOR.MANUFACTURING MILLWRIGHT Work Phone: [facility] 03-29-2022 12:23-0400 Body temperature 97.5 [degF] Cosme Boland DO Work Phone: [facility] 03-29-2022 12:23-0400 Body weight 100.7 kg Cosme Boland DO Work Phone: [facility] 03-29-2022 12:23-0400 Diastolic blood pressure 60 mm[Hg] Cosme Boland DO Work Phone: [facility] 03-29-2022 12:23-0400 Heart rate 76 /min Cosme Boland DO Work Phone: [facility] 03-29-2022 12:23-0400 Respiratory rate 16 /min Cosme Boland DO Work Phone: [facility] 03-29-2022 12:23-0400 Systolic blood pressure 120 mm[Hg] Cosme Boland DO Work Phone: [facility] 02-02-2022 09:00-0400 Body temperature 97.5 [degF] Cosme Boland DO Work Phone: [facility] 02-02-2022 09:00-0400 Body weight 100.25 kg Cosme Boland DO Work Phone: [facility] 02-02-2022 09:00-0400 Diastolic blood pressure 70 mm[Hg] Cosme Boland DO Work Phone: [facility] 02-02-2022 09:00-0400 Heart rate 80 /min Cosme Boland DO Work Phone: [facility] 02-02-2022 09:00-0400 Respiratory rate 16 /min Cosme Boland DO Work Phone: [facility] 02-02-2022 09:00-0400 Systolic blood pressure 100 mm[Hg] Cosme Boland DO Work Phone: [facility] 10-23-2021 08:43-0400 Body weight 97.52 kg Xochilt Gaston APRN.MANUFACTURING MILLWRIGHT Work Phone: [facility] 10-23-2021 08:43-0400 Diastolic blood pressure 82 mm[Hg] Xochilt Rubioma n GERIATRIC SOCIAL WORK PROFESSOR.MANUFACTURING MILLWRIGHT Work Phone: [facility] 10-23-2021 08:43-0400 Heart rate 79 /min Xochilt Marilin GERIATRIC SOCIAL WORK PROFESSOR.MANUFACTURING MILLWRIGHT Work Phone: [facility] 10-23-2021 08:43-0400 Respiratory rate 16 /min Xochilt Mairlin GERIATRIC SOCIAL WORK PROFESSOR.MANUFACTURING MILLWRIGHT Work Phone: [facility] 10-23-2021 08:43-0400 SaO2% (BldA) [Mass fraction] 99 % Xochilt Rubioman GERIATRIC SOCIAL WORK PROFESSOR.MANUFACTURING MILLWRIGHT Work Phone: [facility] 10-23-2021 08:43-0400 Systolic blood pressure 122 mm[Hg] Xochilt Rubioman GERIATRIC SOCIAL WORK PROFESSOR.MANUFACTURING MILLWRIGHT Work Phone: [facility] Encounters Encounter Date Encounter Type Care Provider Facility Start: 05-02-2025 End: 05-02-2025 ambulatory KARTHIK PREBISH Facility:[facility] Start: 04-30-2025 End: 04-30-2025 ambulatory COSME L BOLAND Facility:[facility] Start: 04-22-2025 ambulatory COSME BOLAND DO Faci lity:A Start: 04-10-2025 End: 04-10-2025 ambulatory [facility] Facility:[facility] Start: 04-06-2025 ambulatory Yoseph Fonseca Facili ty:[facility] Start: 04-01-2025 End: 04-01-2025 ambulatory [facility] Facility:[facility] Start: 03-26-2025 ambulatory Cosme Boland Facilit y:[facility] Start: 03-14-2025 End: 03-26-2025 ambulatory Yoseph Fonseca Facility:[facility] Start: 03-07-2025 End: 03-07-2025 ambulatory [facility] Facility:[facility] Start: 03-06-2025 End: 03-08-2025 ambulatory Xochilt Marilin GERIATRIC SOCIAL WORK PROFESSOR.MANUFACTURING MILLWRIGHT Work Phone: [facility] [place] Comment on above: Gabapentin Refill Request Start: 03-05-2025 End: 03-05-2025 E-mail encounter from caregiver Clayton J Bridgette LABOY Work Phone: Psychiatry Start: 03-05-2025 End: 03-05-2025 Patient encounter procedure Clayton Lila Bridgette LABOY Work Phone: Psychiatry Comment on above: Appointment Start: 03-01-2025 End: 03-11-2025 Telephone encounter Intestinal Trans Coord Main Work Phone: Transplant Center Comment on above: Anticoagulation - In itial Consult Start: 03-01-2025 End: 03-01-2025 Office outpatient visit 25 minutes Xochilt Gaston APRN.MANUFACTURING MILLWRIGHT Work Phone: [facility] [place] Comment on above: Short bowel syndrome , 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); Hypokalemia; Malnutrition of moderate degree (HCC); Anticoagulation management encounter; 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) Start: 03-01-2025 End: 03-01-2025 ambulatory XOCHILT RUBIOMAN Facility:[facility] Start: 02-28-2025 End: 03-01-2025 ambulatory Kirit Devine MD Work Phone: Transplant Center Comment on above: Attn Libia Start: 02-26-2025 End: 02-26-2025 [facility] Clayton Granados APRN.CNP Work Phone: Psychiatry Comment on above: Anxiety about health (Primary Dx); Bipolar II disorder (HCC); Insomnia due to other mental disorder; Encounter for long-term (current) use of medications; ELIJAH (generalized anxiety disorder); Psychosocial stressors; Hyponatremia; Hypokalemia Start: 02-26-2025 End: 02-26-2025 Social Work Muriel FERRER Work Phone: Hematology/Oncology Start: 02-22-2025 End: 02-22-2025 Telephone encounter Research Coordinator Clinical Research Comment on above: Research (IRB: [id number] Caring for OutPatiEnts after Acute Kidney Injury (COPE-JONATAN) trial PI: Dr. Juan Manuel Byrd ) Start: 02-19-2025 ambulatory Donte Espinal Facili ty:[facility] Start: 02-19-2025 End: 02-23-2025 Evaluation and management of inpatient Donte Espinal Facility:[facility] Start: 02-14-2025 End: 02-24-2025 ambulatory Yoseph Fonseca Facility:[facility] Start: 02-11-2025 End: 02-11-2025 ambulatory Cosme Boland DO Work Phone: [facility] Start: 02-11-2025 End: 02-11-2025 Patient encounter procedure Cosme Boland DO Work Phone: [facility] Comment on above: Referral Start: 02-11-2025 End: 02-12-2025 Telephone encounter Cosme Boland DO Work Phone: [facility] Comment on above: Consult Start: 02-08-2025 End: [...] above: Libia Start: 02-05-2025 End: 02-05-2025 ambulatory Cosme Boland Facility:[facility] Start: 02-05-2025 End: 02-05-2025 ambulatory Ed Saxena Facility:[facility] Start: 01-28-2025 End: 01-28-2025 Office outpatient visit 25 minutes Ed Saxena APRN.CNP Work Phone: [facility] Comment on above: 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); Anticoagulation management encounter; Short bowel syndrome, 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; Malnutrition of moderate degree (HCC); Hypokalemia; Anemia, unspecified type; PICC (peripherally inserted central catheter) in place Start: 01-28-2025 End: 01-28-2025 ambulatory COSME BOLAND Facility:[facility] Start: 01-28-2025 End: 01-28-2025 Telephone encounter Jigna HowellRn) [facility] [place] Comment on above: Research (JOSEPH JONATAN / [id number]) Start: 01-24-2025 End: 01-24-2025 Telephone encounter Hpn Team Facilitator Work Phone: Gastroenterology Start: 01-24-2025 End: 01-24-2025 ambulatory Yoseph La Joya Facility:[facility] Start: 01-23-2025 End: 01-23-2025 Telephone encounter Hpn Team Facilitator Work Phone: Gastroenterology Start: 01-22-2025 End: 01-22-2025 ambulatory Hpn Team Facilitator Work Phone: Gastroenterology Start: 01-21-2025 End: 01-21-2025 ambulatory COSME BOLAND Facility:[facility] Start: 01-17-2025 End: 01-17-2025 Telephone encounter Hpn Team Facilitator Work Phone: Gastroenterology Start: 01-15-2025 End: 01-24-2025 Follow-up encounter Ed Saxena APRN.MANUFACTURING MILLWRIGHT Work Phone: [facility] Comment on above: Results Start: 01-14-2025 End: 01-14-2025 Telephone encounter Ed Saxena APRN.MANUFACTURING MILLWRIGHT Work Phone: [facility] Start: 01-11-2025 End: 01-11-2025 ambulatory CLAYTON GRANADOS Facility:[facility] Start: 01-11-2025 End: 01-11-2025 [facility] Clayton Granados APRN.MANUFACTURING MILLWRIGHT Work Phone: Psychiatry Comment on above: ELIJAH (generalized anx iety disorder) (Primary Dx); Anxiety about health; Bipolar II disorder (HCC); Encounter for long-term (current) use of medications; Insomnia due to other mental disorder Start: 01-10-2025 End: 01-10-2025 ambulatory COSME Yosef BOLAND Facility:[facility] Start: 01-10-2025 End: 01-10-2025 Office outpatient visit 40 minutes Ed Saxena APRN.CNP Work Phone: [facility] Comment on above: 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); Pain associated with surgical procedure; Removal of gilberto; Visit for suture removal; Screening for depression; Hypokalemia; Blood thinned due to long-term anticoagulant use Start: 01-10-2025 End: 01-10-2025 ambulatory COSME Yosef BOLAND Facility:[facility] Start: 01-09-2025 End: 01-09-2025 Telephone encounter Research Coordinator Clinical Research Comment on above: Research (IRB: [id number] Caring for OutPatiEnts after Acute Kidney Injury (COPE-JONATAN) trial PI: Dr. Juan Manuel Byrd) Start: 01-08-2025 End: 01-10-2025 Telephone encounter Hpn Team Facilitator Work Phone: Gastroenterology Comment on above: Critical Lab Start: 01-08-2025 End: 01-08-2025 ambulatory Cosme Krystian Facility:[facility] Start: 01-07-2025 End: 01-07-2025 Telephone encounter Larry Betancourt MD [facility] Department Comment on above: Fabric Transition of Care Start: 01-04-2025 End: 01-04-2025 Telephone encounter Dayan LUA Hematology/Oncology Start: 01-03-2025 End: 01-03-2025 Telephone encounter Dayan LUA Hematology/Oncology Start: 01-02-2025 End: 01-02-2025 Telephone encounter Jigna Matson (Rn) [facility] Kidney Medicine [facility] Comment on above: Transition Of Care Start: 01-01-2025 End: 01-01-2025 Telephone encounter Cosme Boland DO Work Phone: NOC Comment on above: Transition Of Care Start: 01-01-2025 ambulatory Cosme Krystian Facilit y:[facility] Start: 12-31-2024 End: 12-31-2024 Patient encounter procedure Kirit Devine MD Work Phone: Transplant Center Comment on above: S/P exploratory lapa rotomy Start: 12-31-2024 End: 12-31-2024 ambulatory COSME BOLAND Facility:[facility] Start: 12-25-2024 End: 12-27-2024 ambulatory Jigna Matson (Rn) [facility] Kidney Medicine [facility] Comment on above: Research (JOSEPH CHEUNG / [id number]) Research (PHILIP manuel/IRB: [id number]- Pharmacist Contact ) Start: 12-25-2024 End: 12-25-2024 Telephone encounter Intestinal Trans Coord Main Work Phone: Transplant Center Comment on above: Hospital F/U Transition Of Care ( RC f/u discharge LVM /) Start: 12-24-2024 End: 12-24-2024 ambulatory Cosme Boland Facility:[facility] Start: 12-21-2024 End: 12-30-2024 Orders Only [...] questions, please feel call Yuri Salcedo at [phone]/) Start: 12-13-2024 End: 12-13-2024 Telephone encounter Intestinal Trans Coord Main Work Phone: Transplant Center Comment on above: Return Call Request Start: 11-28-2024 End: 11-28-2024 Telephone encounter Intestinal Trans Coord Main Work Phone: Transplant Center Comment on above: Return Call Request Start: 11-28-2024 End: 12-21-2024 Evaluation and management of inpatient SANDRA RILEY Facility:[facility] Start: 11-27-2024 End: 11-27-2024 Telephone encounter Kirit Devine MD Work Phone: Transplant Center Start: 11-21-2024 End: 11-23-2024 Evaluation and management of inpatient Taras Sue Facility:[facility] Start: 11-21-2024 ambulatory Taras Sue Fac ility:[facility] Start: 11-14-2024 ambulatory Joshua Nazario Facility:[facility] Start: 11-13-2024 End: 11-16-2024 ambulatory Cosme Boland Facility:[facility] Start: 11-13-2024 End: 11-16-2024 Evaluation and management of inpatient Ashley Rosen Facility:[facility] Start: 11-12-2024 End: 11-12-2024 [facility] Start: 11-06-2024 End: 11-06-2024 Telephone encounter Cosme Yosef Boland DO Work Phone: [address] [place] [address] Comment on above: Transition Of Care ( Left V/m ) Start: 11-05-2024 End: 11-05-2024 Telephone encounter [facility] Transplant [facility] Start: 10-30-2024 End: 10-30-2024 Telephone encounter Larry Betancourt MD [facility] Department Comment on above: Fabric Transition of Care Start: 10-28-2024 ambulatory Taras Sue Fac ility:[facility] Start: 10-28-2024 End: 11-05-2024 Evaluation and management of inpatient Taras Sue Facility:[facility] Start: 10-26-2024 End: 10-26-2024 Patient encounter procedure Stephie Montoya MD Work Phone: Gastroenterology Comment on above: On total parenteral nutrition (TPN) (Primary Dx) Start: 10-19-2024 End: 10-26-2024 Evaluation and management of inpatient MICHAEL ELLIS Facility:[id number] Start: 10-19-2024 ambulatory MAGGIE PUTNAM [facility] Start: 10-19-2024 End: 10-19-2024 Emergency department patient visit HERBERT GANDHI [facility] Start: 10-09-2024 End: 10-12-2024 ambulatory ROSA MARIA ALVARADOANIKET Facility:[id number] Start: 10-09-2024 End: 10-10-2024 Telephone encounter Martín Pendleton DO Work Phone: Hematology/Oncology Comment on above: Results; Follow Up Start: 10-09-2024 End: 10-09-2024 [facility] Start: 10-08-2024 End: 10-12-2024 Telephone encounter Nico Bashir [facility] Transplant Center Comment on above: Virtual Education Vi sit Start: 10-03-2024 End: 10-03-2024 Telephone encounter Martín Pendleton DO Work Phone: Hematology/Oncology Comment on above: Electronic Communica tion Start: 10-02-2024 End: 10-02-2024 Patient encounter procedure Martín Pendleton DO Work Phone: Hematology/Oncology Start: 10-02-2024 End: 10-03-2024 ambulatory [facility] Work Phone: Hematology/Oncology Comment on above: Aortic thrombus (HCC ) (Primary Dx) Abnormal serum prote in electrophoresis (Primary Dx); Antiphospholipid antibody syndrome (HCC); Superior mesenteric artery thrombosis (HCC) Start: 09-19-2024 End: 09-19-2024 Patient encounter procedure Angela Blackwood APRN.CNP Work Phone: Vascular Surg Dept Comment on above: Encounter for post s urgical wound check (Primary Dx); Encounter for staple removal; Arterial occlusion; Acute lower limb ischemia; prison (current) use of aspirin; prison current use of anticoagulant Start: 09-19-2024 End: 09-19-2024 ambulatory COSME BOLAND Facility:[facility] Start: 09-17-2024 End: 09-17-2024 [facility] department [facility] Start: 09-12-2024 End: 09-14-2024 Telephone encounter Martín Pendleton DO Work Phone: Hematology/Oncology Comment on above: [...] Referral Start: 09-05-2024 End: 09-05-2024 Telephone encounter Cosme Boland DO Work Phone: NOC Comment on above: Appointment Start: 09-03-2024 End: 09-14-2024 Telephone encounter Intestinal Trans Coord Main Work Phone: Transplant Center Comment on above: Gut Rehab/ Intestina l Txp Referral Start: 09-03-2024 End: 10-26-2024 [facility] Start: 08-28-2024 End: 08-28-2024 Telephone encounter Akua Grigsby MD Work Phone: Vascular Medicine Start: 08-20-2024 End: 08-20-2024 ambulatory Katelyn Villagran GERIATRIC SOCIAL WORK PROFESSOR.MANUFACTURING MILLWRIGHT Work Phone: Critical Care Start: 08-20-2024 End: 09-03-2024 Evaluation and management of inpatient COSME BOLAND Facility:[facility] Start: 08-20-2024 End: 08-20-2024 Emergency department patient visit Cosme Boland Facility:[facility] Start: 08-16-2024 End: 08-16-2024 Emergency department patient visit Cosme [place]ille Facility:[facility] Start: 08-16-2024 End: 08-16-2024 ambulatory XOCHILT GASTON Facility:[facility] Start: 08-16-2024 End: 08-16-2024 Office outpatient visit 25 minutes Xochilt Gaston GERIATRIC SOCIAL WORK PROFESSOR.MANUFACTURING MILLWRIGHT Work Phone: [facility] [place] Comment on above: Productive cough (Pr imary Dx); Eczema, unspecified type Start: 08-08-2024 End: 08-29-2024 Follow-up encounter Xochilt Gaston APRN.CNP Work Phone: [facility] Comment on above: Anemia, unspecified type (Primary Dx) Start: 08-07-2024 End: 08-07-2024 Telephone encounter Xochilt Gaston APRN.CNP Work Phone: [facility] Comment on above: Results; EKG Start: 08-07-2024 End: 08-07-2024 ambulatory XOCHILT GASTON Facility:[facility] Start: 08-07-2024 End: 08-07-2024 Office outpatient visit 25 minutes Xochilt Gaston APRN.MANUFACTURING MILLWRIGHT Work Phone: [facility] Comment on above: Medication managemen t (Primary Dx); Hypokalemia; Low hemoglobin; Anemia, unspecified type; Elevated hemoglobin A1c Start: 07-30-2024 End: 07-30-2024 Emergency department patient visit Cosme Boland Facility:[facility] Start: 06-19-2024 End: 06-21-2024 ambulatory Clayton Granados APRN.MANUFACTURING MILLWRIGHT Work Phone: Psychiatry Comment on above: EKG Start: 05-21-2024 End: 05-21-2024 ambulatory [facility] Facility:[facility] Start: 05-18-2024 End: 05-18-2024 ambulatory [facility] Facility:[facility] Start: 05-18-2024 End: 05-18-2024 [facility] Clayton Granados APRN.MANUFACTURING MILLWRIGHT Work Phone: Psychiatry Comment on above: ELIJAH (generalized anx iety disorder) (Primary Dx); Panic attacks; Insomnia due to other mental disorder; Bipolar II disorder (HCC); Encounter for long-term (current) use of medications; History of marijuana use; Psychosocial stressors Start: 04-24-2024 End: 04-26-2024 ambulatory Clayton Granados APRN.MANUFACTURING MILLWRIGHT Work Phone: Psychiatry Comment on above: UA Start: 03-27-2024 End: 03-28-2024 ambulatory Clayton Lila Rajguru GERIATRIC SOCIAL WORK PROFESSOR.MANUFACTURING MILLWRIGHT Work Phone: Psychiatry Comment on above: Lexapro and zyprexa Start: 03-21-2024 End: 03-21-2024 ambulatory Clayton J Rajguru GERIATRIC SOCIAL WORK PROFESSOR.MANUFACTURING MILLWRIGHT Work Phone: Psychiatry Start: 03-21-2024 End: 03-21-2024 Patient encounter procedure Clayton Lila Rajguru GERIATRIC SOCIAL WORK PROFESSOR.MANUFACTURING MILLWRIGHT Work Phone: Psychiatry Comment on above: Appointment Start: 03-03-2024 End: 03-03-2024 ambulatory Clayton J Rajguru GERIATRIC SOCIAL WORK PROFESSOR.MANUFACTURING MILLWRIGHT Work Phone: Psychiatry Comment on above: NO SHOW (Primary Dx) Start: 03-03-2024 End: 03-03-2024 Telemedicine consultation with patient Clayton Oemrguru GERIATRIC SOCIAL WORK PROFESSOR.MANUFACTURING MILLWRIGHT Work Phone: Psychiatry Start: 02-21-2024 End: 02-21-2024 ambulatory Clayton J Rajguru GERIATRIC SOCIAL WORK PROFESSOR.MANUFACTURING MILLWRIGHT Work Phone: Psychiatry Comment on above: Lexapro Start: 01-26-2024 ambulatory Clayton J Rajgur u GERIATRIC SOCIAL WORK PROFESSOR.MANUFACTURING MILLWRIGHT Work Phone: Psychiatry Comment on above: Appt Start: 01-19-2024 End: 01-19-2024 ambulatory Clayton Lila Omerguru GERIATRIC SOCIAL WORK PROFESSOR.MANUFACTURING MILLWRIGHT Work Phone: Psychiatry Comment on above: NO SHOW (Primary Dx) Start: 01-19-2024 End: 01-19-2024 Telemedicine consultation with patient Clayton Nationru GERIATRIC SOCIAL WORK PROFESSOR.MANUFACTURING MILLWRIGHT Work Phone: Psychiatry Start: 12-30-2023 ambulatory Clayton J Rajgur u GERIATRIC SOCIAL WORK PROFESSOR.MANUFACTURING MILLWRIGHT Work Phone: Psychiatry Start: 12-30-2023 End: 12-30-2023 Patient encounter procedure Clayton Lila Omerguru GERIATRIC SOCIAL WORK PROFESSOR.MANUFACTURING MILLWRIGHT Work Phone: Psychiatry Comment on above: Appointment APPOINTMENT CANCELLE D (Primary Dx) Start: 12-30-2023 End: 12-30-2023 Telemedicine consultation with patient Clayton J Rajguru GERIATRIC SOCIAL WORK PROFESSOR.MANUFACTURING MILLWRIGHT Work Phone: Psychiatry Start: 12-12-2023 Refill Cosme goodwin DO Work Phone: [facility] [place] Comment on above: Refill Request Start: 12-10-2023 Get Medical Advice Cosme Boland DO Work Phone: [facility] [place] Comment on above: Refill Start: 11-12-2023 ambulatory Clayton roman GERIATRIC SOCIAL WORK PROFESSOR.MANUFACTURING MILLWRIGHT Work Phone: Psychiatry Comment on above: Zyprexa Start: 10-19-2023 ambulatory Cosme goodwin DO Work Phone: Internal Medicine [place] Start: 09-27-2023 Refill Yesenia Rangel GERIATRIC SOCIAL WORK PROFESSOR.MANUFACTURING MILLWRIGHT Work Phone: [facility] [place] Comment on above: Refill Request Start: 09-02-2023 End: 09-02-[address] [facility] Clayton Granados APRN.MANUFACTURING MILLWRIGHT Work Phone: Psychiatry Comment on above: Bipolar II disorder (HCC) (Primary Dx); Encounter for long-term (current) use of medications; Panic disorder without agoraphobia; History of marijuana use; ELIJAH (generalized anxiety disorder) Start: 05-23-2023 ambulatory Clayton roman GERIATRIC SOCIAL WORK PROFESSOR.MANUFACTURING MILLWRIGHT Work Phone: Psychiatry Comment on above: Zyprexa Start: 05-16-2023 End: 05-16-2023 [facility] Clayton Granados APRN.MANUFACTURING MILLWRIGHT Work Phone: Psychiatry Comment on above: Encounter for long-t erm (current) use of medications (Primary Dx); ELIJAH (generalized anxiety disorder); Bipolar II disorder (HCC); Panic disorder without agoraphobia Start: 04-18-2023 End: 04-18-2023 [facility] Clayton Granados APRN.MANUFACTURING MILLWRIGHT Work Phone: Psychiatry Comment on above: ELIJAH (generalized anx iety disorder) (Primary Dx); Panic attacks; Bipolar II disorder (HCC); Occasional use of marijuana Start: 03-15-2023 Refill Yesenia Rangel GERIATRIC SOCIAL WORK PROFESSOR.MANUFACTURING MILLWRIGHT Work Phone: [facility] [place] Comment on above: Refill Request Start: 03-14-2023 End: 03-14-2023 [facility] Clayton Granados GERIATRIC SOCIAL WORK PROFESSOR.MANUFACTURING MILLWRIGHT Work Phone: Psychiatry Comment on above: Encounter for long-t erm (current) use of medications (Primary Dx); ELIJAH (generalized anxiety disorder); Panic attacks; Bipolar affective disorder, current episode mixed, current episode severity unspecified (HCC) Start: 02-25-2023 ambulatory Clayton Nationr u GERIATRIC SOCIAL WORK PROFESSOR.MANUFACTURING MILLWRIGHT Work Phone: [facility] [place] Start: 02-25-2023 Patient encounter procedure Clayton rGanados GERIATRIC SOCIAL WORK PROFESSOR.MANUFACTURING MILLWRIGHT Work Phone: Psychiatry Comment on above: Appointment Start: 01-05-2023 Refill Clayton Nationr u GERIATRIC SOCIAL WORK PROFESSOR.MANUFACTURING MILLWRIGHT Work Phone: Psychiatry Comment on above: Refill Request Start: 01-03-2023 Refill Clayton Nationr u GERIATRIC SOCIAL WORK PROFESSOR.MANUFACTURING MILLWRIGHT Work Phone: Psychiatry Comment on above: Refill Request Start: 12-31-2022 Refill Clayton Nationr u GERIATRIC SOCIAL WORK PROFESSOR.MANUFACTURING MILLWRIGHT Work Phone: Psychiatry Comment on above: Refill Request Start: 10-28-2022 End: 10-28-2022 [facility] Clayton Granados GERIATRIC SOCIAL WORK PROFESSOR.MANUFACTURING MILLWRIGHT Work Phone: Psychiatry Comment on above: History of marijuana use (Primary Dx); Bipolar II disorder (HCC); Panic disorder without agoraphobia Start: 10-01-2022 Telephone encounter Shandra M [facility] Surgery Comment on above: Engineering Associate - O ther (ECT) Start: 09-30-2022 End: 09-30-2022 ambulatory ESA GUILLEN Facility:[facility] Start: 09-30-2022 End: 09-30-2022 Patient encounter procedure Esa Guillen GERIATRIC SOCIAL WORK PROFESSOR.MANUFACTURING MILLWRIGHT Work Phone: Psychiatry Comment on above: Bipolar II disorder (HCC) (Primary Dx) Start: 09-27-2022 End: 09-27-2022 [facility] Clayton Granados APRN.MANUFACTURING MILLWRIGHT Work Phone: Psychiatry Comment on above: Bipolar 2 disorder ( HCC) (Primary Dx); Panic disorder without agoraphobia; Marijuana use Start: 09-13-2022 End: 09-13-2022 ambulatory Clayton Granados APRN.MANUFACTURING MILLWRIGHT Work Phone: Psychiatry Comment on above: NO SHOW (Primary Dx) Start: 09-13-2022 End: 09-13-2022 Telemedicine consultation with patient Clayton Lila Granados APRN.MANUFACTURING MILLWRIGHT Work Phone: [facility] [place] Start: 08-24-2022 Telephone encounter Ariella Cortes RN Psychiatry Comment on above: ECT Referral Start: 08-08-2022 Refill Cosme goodwin DO Work Phone: [facility] [place] Comment on above: Refill Request Start: 07-19-2022 End: 07-19-2022 [facility] Clayton Granados APRN.MANUFACTURING MILLWRIGHT Work Phone: Psychiatry Comment on above: Panic disorder witho ut agoraphobia (Primary Dx); Bipolar 2 disorder (HCC); Marijuana use Start: 07-05-2022 Refill Clayton roman GERIATRIC SOCIAL WORK PROFESSOR.MANUFACTURING MILLWRIGHT Work Phone: Psychiatry Comment on above: Refill Request Start: 07-01-2022 Refill Cosme goodwin DO Work Phone: Family [facility] [place] Comment on above: Refill Request Start: 05-31-2022 End: 05-31-[address] [facility] Clayton Granados GERIATRIC SOCIAL WORK PROFESSOR.MANUFACTURING MILLWRIGHT Work Phone: Psychiatry Comment on above: Encounter for long-t erm (current) use of medications (Primary Dx); Panic disorder without agoraphobia; Bipolar 2 disorder (HCC) Start: 05-24-2022 Refill Clayton roman GERIATRIC SOCIAL WORK PROFESSOR.MANUFACTURING MILLWRIGHT Work Phone: Psychiatry Comment on above: Refill Request Start: 05-10-2022 Refill Clayton roman GERIATRIC SOCIAL WORK PROFESSOR.MANUFACTURING MILLWRIGHT Work Phone: Psychiatry Comment on above: Refill Request Lexapro Start: 04-09-2022 End: 04-09-2022 ambulatory Clayton Granados GERIATRIC SOCIAL WORK PROFESSOR.MANUFACTURING MILLWRIGHT Work Phone: Psychiatry Comment on above: NO SHOW (Primary Dx) Start: 04-09-2022 End: 04-09-2022 Telemedicine consultation with patient lCayton Omerguru FINNEGAN.MANUFACTURING MILLWRIGHT Work Phone: [facility] [place] Start: 03-29-2022 End: 03-29-2022 Patient encounter procedure Cosme Boland DO Work Phone: [facility] [place] Comment on above: Bilateral hand pain (Primary Dx); Elevated C-reactive protein (CRP); Bipolar affective disorder, current episode mixed, current episode severity unspecified (HCC) Start: 03-10-2022 Telephone encounter Cosme walsh DO Work Phone: [facility] [place] Comment on above: Patient Update Start: 03-04-2022 End: 03-04-2022 [facility] Clayton Granados GERIATRIC SOCIAL WORK PROFESSOR.MANUFACTURING MILLWRIGHT Work Phone: Psychiatry Comment on above: Panic disorder witho ut agoraphobia (Primary Dx); Bipolar 2 disorder (HCC) Start: 02-11-2022 Refill Clayton roman GERIATRIC SOCIAL WORK PROFESSOR.MANUFACTURING MILLWRIGHT Work Phone: Psychiatry Comment on above: Refill Request Start: 02-02-2022 End: 02-02-2022 Patient encounter procedure Cosme Boland DO Work Phone: [facility] [place] Comment on above: Bilateral hand pain (Primary Dx); Foot pain, bilateral; Fatigue, unspecified type; Myalgia; Multiple joint pain; Iron deficiency Start: 01-27-2022 End: 01-27-2022 [facility] Clayton Granados GERIATRIC SOCIAL WORK PROFESSOR.MANUFACTURING MILLWRIGHT Work Phone: Psychiatry Comment on above: Bipolar 2 disorder ( HCC) (Primary Dx); Panic disorder without agoraphobia Start: 01-11-2022 ambulatory Clayton Nationr u GERIATRIC SOCIAL WORK PROFESSOR.MANUFACTURING MILLWRIGHT Work Phone: Psychiatry Comment on above: Lab work Start: 12-24-2021 End: 12-24-2021 [facility] Claytonsammie Granados GERIATRIC SOCIAL WORK PROFESSOR.MANUFACTURING MILLWRIGHT Work Phone: Psychiatry Comment on above: ELIJAH (generalized anx iety disorder) (Primary Dx); Bipolar 2 disorder (HCC); Panic disorder without agoraphobia Start: 12-22-2021 Refill Yesenia Zurawic k GERIATRIC SOCIAL WORK PROFESSOR.MANUFACTURING MILLWRIGHT Work Phone: [facility] [place] Comment on above: Refill Request Start: 12-15-2021 ambulatory Clayton Martins u GERIATRIC SOCIAL WORK PROFESSOR.MANUFACTURING MILLWRIGHT Work Phone: Psychiatry Comment on above: Lexapro Start: 12-08-2021 Telephone encounter Clayton bro GERIATRIC SOCIAL WORK PROFESSOR.MANUFACTURING MILLWRIGHT Work Phone: Psychiatry Comment on above: Patient Question Start: 11-26-2021 Refill Clayton roman GERIATRIC SOCIAL WORK PROFESSOR.MANUFACTURING MILLWRIGHT Work Phone: Psychiatry Comment on above: Refill Request Start: 11-12-2021 End: 11-12-[address] [facility] Clayton Granados GERIATRIC SOCIAL WORK PROFESSOR.MANUFACTURING MILLWRIGHT Work Phone: Psychiatry Comment on above: ELIJAH (generalized anx iety disorder) (Primary Dx); Bipolar 2 disorder (HCC) Start: 11-03-2021 Refill Yesenia Zurawic k GERIATRIC SOCIAL WORK PROFESSOR.MANUFACTURING MILLWRIGHT Work Phone: [facility] [place] Comment on above: Refill Request Start: 10-27-2021 End: 10-27-[address] [facility] Clayton Granados GERIATRIC SOCIAL WORK PROFESSOR.MANUFACTURING MILLWRIGHT Work Phone: Psychiatry Comment on above: ELIJAH (generalized anx iety disorder) (Primary Dx); Bipolar 2 disorder (HCC) Start: 10-23-2021 ambulatory Xochilt holland GERIATRIC SOCIAL WORK PROFESSOR.MANUFACTURING MILLWRIGHT Work Phone: [facility] [place] Start: 10-23-2021 End: 10-23-2021 Patient encounter procedure Xochilt Gaston GERIATRIC SOCIAL WORK PROFESSOR.MANUFACTURING MILLWRIGHT Work Phone: [facility] [place] Comment on above: Appointment Bipolar affective di sorder, current episode mixed, current episode severity unspecified (HCC) (Primary Dx); Alcohol abuse; Depressive disorder; Panic attacks; ADD (attention deficit disorder) without hyperactivity; Legal intervention, bystander injured, initial encounter Start: 10-10-2021 ambulatory Room Emergency Radiolog y Comment on above: Radiology CT Start: 10-10-2021 Patient encounter procedure Room Emergency [facility] Start: 03-12-2021 End: 03-12-2021 Subsequent hospital visit by physician [facility] [place] Work Phone: Radiology Comment on above: Acute pain of left k nee [M25.562] Start: 02-07-2018 Patient encounter procedure SANDRA [facility] Start: 12-08-2017 End: 12-13-2017 Evaluation and management of inpatient Zakiya George Facility:[facility] Date Procedure Procedure Detail Performing Clinician Start: 01-10-2025 Adult depression scr eening assessment Hpn Team Facilitator Work Phone: Start: 12-18-2024 Antibody screen COSME BOLAND Comment on above: Order Comment: Speci men Type: BLOOD SPECIMENOrdering Facility: [facility] Address: [address] [place] [address] Performed By: #### T SCR ####CC MAIN BLOOD BANKCLIA [id number] [address] Start: 12-10-2024 Colonoscopy COSME GAR RISON Start: 12-10-2024 Antibody screen COSME BOLAND Comment on above: Order Comment: Speci men Type: BLOOD SPECIMENOrdering Facility: [facility] Address: [address] [place] [address] Performed By: #### T SCR ####CC MAIN BLOOD BANKCLIA [id number] [address] [place] Start: 12-06-2024 Colonoscopy COSME GAR RISON Start: 12-05-2024 Colonoscopy COSME GAR RISON Start: 10-02-2024 Heparin assay Martín parisi DO Work Phone: Start: 10-02-2024 PATHOLOGIST INTERPRE TATION CBC/DIFF Martín Pendleton DO Work Phone: Start: 09-21-2024 Urinalysis MAGGIE HAMILTON Comment on above: Result Comment: URIN ALYSIS Performed By: #### 2 [id number] #### [facility],[address] [place] [address] Start: 08-21-2024 H/O: surgery History of fasciotomy D danni Grigsby MD Work Phone: Start: 03-04-2022 Adult depression scr eening assessment Clayton Granados GERIATRIC SOCIAL WORK PROFESSOR.MANUFACTURING MILLWRIGHT Work Phone: Start: 01-27-2022 Adult depression scr eening assessment Clayton Granados GERIATRIC SOCIAL WORK PROFESSOR.MANUFACTURING MILLWRIGHT Work Phone: Start: 12-23-2021 Adult depression scr eening assessment Clayton Granados GERIATRIC SOCIAL WORK PROFESSOR.MANUFACTURING MILLWRIGHT Work Phone: Start: 11-12-2021 Adult depression scr eening assessment Clayton Granados GERIATRIC SOCIAL WORK PROFESSOR.MANUFACTURING MILLWRIGHT Work Phone: Start: 10-26-2021 Adult depression scr eening assessment Xochilt Gaston GERIATRIC SOCIAL WORK PROFESSOR.MANUFACTURING MILLWRIGHT Work Phone: Start: 08-27-2021 Adult depression scr eening assessment Room Emergency Start: 03-12-2021 Radiologic exam knee complete 4/more views Herbert Izquierdo MD Work Phone: H/O: surgery S/P exploratory laparotomy Intestinal Trans Coord Main Work Phone: H/O: surgery S/P exploratory laparotomy Kirit Devine MD Work Phone: Plan of Treatment Date Care Activity Detail Author Start: 05-21-2029 Urine microalbumin profile [facility] Start: 03-01-2026 Annual PCP Team Chronic Disease Visit Annual PCP Team Chronic Disease Visit [facility] Start: 01-28-2026 Annual PCP Team Chronic Disease Visit Annual PCP Team Chronic Disease Visit [facility] Start: 01-10-2026 Annual PCP Team Chronic Disease Visit Annual PCP Team Chronic Disease Visit [facility] Start: 01-10-2026 Depression Screening Depression Screening [facility] Start: 11-29-2025 Hepatitis B screening Urine Albumin:Creatinine Ratio [facility] Start: 09-08-2025 PAP TESTING PAP TESTING [facility] Start: 09-04-2025 Hemoglobin A1c measurement HbA1C [facility] Start: 09-02-2025 End: 09-02-2025 Patient encounter procedure 09/02/2025 12:30 PM EDT OT/PT/Speech Visit [facility] [address] [place] [address] Vicente Griffin, PT [address] [id number] Disability assessment [facility] Comment on above: Disability assessment Start: 08-27-2025 Diabetic foot examination Diabetic Foot Exam [facility] Start: 08-20-2025 Hepatitis B surface antibody level LDL Cholesterol [facility] Start: 08-16-2025 Annual PCP Team Chronic Disease Visit Annual PCP Team Chronic Disease Visit [facility] Start: 08-07-2025 Hepatitis B Vaccine (1 of 3 - 19+ 3-dose series) Hepatitis B Vaccine (1 of 3 - 19+ 3-dose series) [facility] Comment on above: Postponed from 09/08/2002 (Declined at t his time) Start: 08-07-2025 HIV screening HIV Screening [facility] Comment on above: Postponed from 09/08/2001 (Declined at t his time) Start: 08-07-2025 Pneumococcal vaccination Pneumococcal Vaccine (1 of 2 - PCV) [facility] Comment on above: Postponed from 09/08/2002 (Declined at t his time) Start: 08-07-2025 Screening for malignant neoplasm of breast Mammogram Screening [facility] Comment on above: Postponed from 2023 (Declined at t his time) Start: 04-30-2025 End: 04-30-2025 Follow-up encounter 04/30/2025 2:30 PM EST [facility] Psychiatry [address] [place] [address] Clayton Granados, GERIATRIC SOCIAL WORK PROFESSOR.MANUFACTURING MILLWRIGHT [address] [place] [address] 2 month follow up/med check Psychiatry Comment on above: 2 month follow up/med check Start: 03-26-2025 End: 03-26-2025 Patient encounter procedure 03/26/2025 2:30 PM EDT Office Visit Vascular Surg Dept [address] [place] [address] Aleja Goncalves MD [address] [facility] Desk [address] [place] [address] Arterial occlusion [facility] Surg Dept Comment on above: Arterial occlusion Start: 03-26-2025 End: 03-26-2025 Patient encounter procedure Vascular Surgery Comment on above: Arterial occlusion Start: 03-06-2025 End: 06-05-2025 Hemoglobin A1c in Blood HEMOGLOBIN A1C Lab Routine Short bowel syndrome, 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 Hypokalemia Malnutrition of moderate degree (HCC) Expected: 03/06/2025 (Approximate), Expires: 06/05/2025 [facility] Work Phone: Comment on above: Expected: 03/06/2025 (Approximate), Expi res: 06/05/2025 Start: 03-06-2025 End: 06-05-2025 Potassium [Moles/volume] in Serum or Plasma POTASSIUM Lab Routine Hypokalemia Expected: 03/06/2025, Expires: 06/05/2025 [facility] Comment on above: Expected: 03/06/2025, Expires: Start: 03-04-2025 End: 03-04-2025 ambulatory 03/04/2025 2:00 PM EDT [facility] Psychiatry [address] [place] [address] Clayton Granados, GERIATRIC SOCIAL WORK PROFESSOR.MANUFACTURING MILLWRIGHT [address] [place] [address] Psychiatry Start: 02-28-2025 End: 02-28-2025 Patient encounter procedure 02/28/2025 1:00 PM EDT Office Visit [facility] [place] [address] [place] [address] Ed Saxena APRN.MANUFACTURING MILLWRIGHT [address] [place] [address] 1 month f/up Family [facility] Comment on above: 1 month f/up Start: 02-27-2025 End: 02-27-2025 Patient encounter procedure 02/27/2025 11:15 AM EDT Office Visit Vascular Medicine [address] [place] [address] Akua Grigsby MD [address] [place] [address] SMA thrombosis Vascular Medicine Comment on above: SMA thrombosis Start: 02-26-2025 End: 02-26-2025 ambulatory 02/26/2025 3:30 PM EDT [facility] Psychiatry [address] [place] [address] Clayton Granados, GERIATRIC SOCIAL WORK PROFESSOR.MANUFACTURING MILLWRIGHT [address] [place] [address] Psychiatry Start: 02-15-2025 End: 02-15-2025 Follow-up encounter 02/15/2025 11:30 AM EDT [facility] Psychiatry [address] [place] [address] Clayton Granados, GERIATRIC SOCIAL WORK PROFESSOR.MANUFACTURING MILLWRIGHT [address] [place] [address] Follow up appointment Psychiatry Comment on above: Follow up appointment Start: 02-04-2025 Hemoglobin A1c measurement HbA1C [facility] Start: 01-28-2025 End: 01-28-2025 Patient encounter procedure 01/28/2025 2:20 PM EDT Office Visit Family [facility] [address] [place], [place] [id number] Ed Saxena, GERIATRIC SOCIAL WORK PROFESSOR.MANUFACTURING MILLWRIGHT [address] [place], [place] [phone] Blood thinner [facility] Comment on above: Blood thinner Start: 01-28-2025 End: 04-29-2025 CBC panel - Blood by Automated count [facility] Comment on above: Expected: 01/28/2025, Expires: Start: 01-28-2025 End: 04-29-2025 Comprehensive metabolic 2000 panel - Serum or Plasma [facility] Work Phone: Comment on above: Expected: 01/28/2025, Expires: Start: 01-28-2025 End: 04-29-2025 PT panel - Platelet poor plasma by Coagulation assay PROTHROMBIN TIME Lab Routine 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) Expected: 01/28/2025, Expires: 04/29/2025 [facility] Work Phone: Comment on above: Expected: 01/28/2025, Expires: Start: 01-22-2025 End: 01-22-2025 Patient encounter procedure [facility] Comment on above: 1 week f/up Start: 01-14-2025 End: 04-15-2025 Basic metabolic 2000 panel - Serum or Plasma BASIC METABOLIC PANEL Lab Routine Hypokalemia Expected: 01/14/2025, Expires: 04/15/2025 [facility] Comment on above: Expected: 01/14/2025, Expires: Start: 01-14-2025 End: 04-15-2025 PT panel - Platelet poor plasma by Coagulation assay PROTHROMBIN TIME Lab Routine Blood thinned due to long-term anticoagulant use Expected: 01/14/2025, Expires: 04/15/2025 [facility] Work Phone: Comment on above: Expected: 01/14/2025, Expires: Start: 01-11-2025 End: 01-11-2025 Follow-up encounter 01/11/2025 3:00 PM EDT [facility] [address] [place] [address] Clayton Granados, GERIATRIC SOCIAL WORK PROFESSOR.MANUFACTURING MILLWRIGHT [address] [place] [address] Follow up appointment Psychiatry Comment on above: Follow up appointment Start: 01-10-2025 End: 01-10-2025 Patient encounter procedure 01/10/2025 2:00 PM EDT Office Visit Family [facility] [address] [place], [place] [phone] Ed Saxena, GERIATRIC SOCIAL WORK PROFESSOR.MANUFACTURING MILLWRIGHT [address] [place] [phone] check up/pain (MyChart Request) [facility] [place] Comment on above: check up/pain (MyChart Request) Start: 01-08-2025 End: 01-08-2025 Patient encounter procedure Gastroenterology Comment on above: hpn page [id number] Start: 01-07-2025 End: 01-07-2025 Follow-up encounter 01/07/2025 2:00 PM EDT [facility] Psychiatry [address] [place] [address] Clayton Granados GERIATRIC SOCIAL WORK PROFESSOR.MANUFACTURING MILLWRIGHT [address] [place] [address] Follow up appointment Psychiatry Comment on above: Follow up appointment Start: 01-03-2025 End: 01-03-2025 Patient encounter procedure 01/03/2025 10:40 AM EDT Office Visit [facility] [place] [address] [place], [place] [phone] Ed Saxena, GERIATRIC SOCIAL WORK PROFESSOR.MANUFACTURING MILLWRIGHT [address] [place] [phone] check up/pain (MyChart Request) [facility] [place] Comment on above: check up/pain (MyChart Request) Start: 01-01-2025 End: 01-01-2025 Patient encounter procedure 01/01/2025 9:00 AM EDT Office Visit Podiatry [address] [address] Suzanne Duval PA-C [address] [place] [address] DOS 12/03/2024 Podiatry Comment on above: DOS 12/03/2024 Start: 12-31-2024 End: 12-31-2024 Patient encounter procedure [facility] [place] Comment on above: med check [...] 11/15/2024 8:40 AM EDT Appointment Radiology [address] [place] [address] 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] Radiology Comment on above: Short bowel syndrome without colon in co ntinuity [K90.822] Start: 11-13-2024 End: 11-13-2024 Patient encounter procedure 11/13/2024 1:40 PM EDT Office Visit [facility] [place] [address] [place], [place] [address] Cosme Boland, [address] [place] [address] Follow up Family [facility] [place] Comment on above: Follow up Start: 11-08-2024 End: 11-08-2024 Patient encounter procedure 11/08/2024 9:40 AM EDT Appointment Radiology [address] [place] [address] 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] Radiology Comment on above: Short bowel syndrome without colon in co ntinuity [K90.822] Start: 11-05-2024 End: 11-05-2024 Patient encounter procedure 11/05/2024 7:30 AM EDT Appointment Radiology [address] [address] 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] Radiology Comment on above: 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] Start: 10-31-2024 End: 10-31-2024 Follow-up encounter 10/31/2024 10:30 AM EDT Visit (SP) Office Hematology/Oncology [address] [place] [address] Martín Pendleton, DO [address] [place] [address] FOLLOW UP-DISCUSS LABS* Hematology/Oncology Comment on above: FOLLOW UP-DISCUSS LABS* Start: 10-29-2024 End: 10-29-2024 Nursing evaluation of patient and report 10/29/2024 1:00 PM EDT Nurse Visit [facility] [address] [facility] [place] [address] Ostomy Issues [facility] Comment on above: Ostomy Issues Start: 10-25-2024 End: 10-25-2024 Follow-up encounter 10/25/2024 9:30 AM EDT Visit (SP) Office Hematology/Oncology [address] [place] [address] Martín Pendleton, DO [address] [place] [address] FOLLOW UP-DISCUSS LABS* Hematology/Oncology Comment on above: FOLLOW UP-DISCUSS LABS* Start: 10-22-2024 End: 01-21-2025 25-hydroxyvitamin D3 [Mass/volume] in Serum or Plasma VITAMIN D 25 HYDROXY Lab STAT 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 Expected: 10/22/2024 (Approximate), Expires: 01/21/2025 [facility] Comment on above: Expected: 10/22/2024 (Approximate), Expi res: 01/21/2025 Start: 10-22-2024 End: 01-21-2025 Alpha tocopherol [Mass/volume] in Serum or Plasma VITAMIN E/TOCOPHEROL Lab STAT 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 Expected: 10/22/2024 (Approximate), Expires: 01/21/2025 [facility] Comment on above: Expected: 10/22/2024 (Approximate), Expi res: 01/21/2025 Start: 10-22-2024 End: 01-21-2025 AMINO ACIDS, PLASMA W/ CONSULTATION AMINO ACIDS, PLASMA W/ CONSULTATION Lab STAT 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 Expected: 10/22/2024 (Approximate), Expires: 01/21/2025 [facility] Comment on above: Expected: 10/22/2024 (Approximate), Expi res: 01/21/2025 Start: 10-22-2024 End: 01-21-2025 APC RESISTANCE APC RESISTANCE Lab STAT 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 Expected: 10/22/2024 (Approximate), Expires: 01/21/2025 [facility] Comment on above: Expected: 10/22/2024 (Approximate), Expi res: 01/21/2025 Start: 10-22-2024 End: 01-21-2025 aPTT in Platelet poor plasma by Coagulation assay ACTIVATED PARTIAL THROMBOPLASTIN TIME Lab STAT 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 Expected: 10/22/2024 (Approximate), Expires: 01/21/2025 [facility] Comment on above: Expected: 10/22/2024 (Approximate), Expi res: 01/21/2025 Start: 10-22-2024 End: 01-21-2025 Ascorbate [Mass/volume] in Serum or Plasma VITAMIN C Lab STAT 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 Expected: 10/22/2024 (Approximate), Expires: 01/21/2025 [facility] Comment on above: Expected: 10/22/2024 (Approximate), Expi res: 01/21/2025 Start: 10-22-2024 End: 01-21-2025 CBC W Auto Differential panel - Blood COMPLETE BLOOD COUNT AND DIFFERENTIAL Lab STAT 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 Expected: 10/22/2024 (Approximate), Expires: 01/21/2025 [facility] Comment on above: Expected: 10/22/2024 (Approximate), Expi res: 01/21/2025 Start: 10-22-2024 End: 01-21-2025 Cobalamin (Vitamin B12) [Mass/volume] in Serum or Plasma VITAMIN B12 Lab STAT 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 Expected: 10/22/2024 (Approximate), Expires: 01/21/2025 [facility] Comment on above: Expected: 10/22/2024 (Approximate), Expi res: 01/21/2025 Start: 10-22-2024 End: 01-21-2025 Comprehensive metabolic 2000 panel - Serum or Plasma COMPREHENSIVE METABOLIC PANEL Lab STAT 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 Expected: 10/22/2024 (Approximate), Expires: 01/21/2025 [facility] Comment on above: Expected: 10/22/2024 (Approximate), Expi res: 01/21/2025 Start: 10-22-2024 End: 01-21-2025 Ferritin [Mass/volume] in Serum or Plasma FERRITIN Lab STAT 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 Expected: 10/22/2024 (Approximate), Expires: 01/21/2025 [facility] Comment on above: Expected: 10/22/2024 (Approximate), Expi res: 01/21/2025 Start: 10-22-2024 End: 01-21-2025 Folate [Mass/volume] in Serum or Plasma FOLATE, SERUM Lab STAT 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 Expected: 10/22/2024 (Approximate), Expires: 01/21/2025 [facility] Comment on above: Expected: 10/22/2024 (Approximate), Expi res: 01/21/2025 Start: 10-22-2024 End: 01-21-2025 HYPERCOAG DIAG PNL HYPERCOAG DIAG PNL Lab STAT 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 Expected: 10/22/2024 (Approximate), Expires: 01/21/2025 [facility] Comment on above: Expected: 10/22/2024 (Approximate), Expi res: 01/21/2025 Start: 10-22-2024 End: 01-21-2025 Iron and Iron binding capacity panel - Serum or Plasma IRON AND TIBC Lab STAT 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 Expected: 10/22/2024 (Approximate), Expires: 01/21/2025 [facility] Comment on above: Expected: 10/22/2024 (Approximate), Expi res: 01/21/2025 Start: 10-22-2024 End: 01-21-2025 Magnesium [Mass/volume] in Serum or Plasma MAGNESIUM Lab STAT 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 Expected: 10/22/2024 (Approximate), Expires: 01/21/2025 [facility] Comment on above: Expected: 10/22/2024 (Approximate), Expi res: 01/21/2025 Start: 10-22-2024 End: 01-21-2025 Methylmalonate [Moles/volume] in Serum or Plasma METHYLMALONIC ACID Lab STAT 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 Expected: 10/22/2024 (Approximate), Expires: 01/21/2025 [facility] Comment on above: Expected: 10/22/2024 (Approximate), Expi res: 01/21/2025 Start: 10-22-2024 End: 01-21-2025 Niacin [Mass/volume] in Serum or Plasma VITAMIN B3/NIACIN Lab STAT 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 Expected: 10/22/2024 (Approximate), Expires: 01/21/2025 [facility] Comment on above: Expected: 10/22/2024 (Approximate), Expi res: 01/21/2025 Start: 10-22-2024 End: 01-21-2025 Parathyrin.intact [Mass/volume] in Serum or Plasma PTH INTACT Lab STAT 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 Expected: 10/22/2024 (Approximate), Expires: 01/21/2025 [facility] Comment on above: Expected: 10/22/2024 (Approximate), Expi res: 01/21/2025 Start: 10-22-2024 End: 01-21-2025 Phosphate [Mass/volume] in Serum or Plasma PHOSPHORUS INORGANIC Lab STAT 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 Expected: 10/22/2024 (Approximate), Expires: 01/21/2025 [facility] Comment on above: Expected: 10/22/2024 (Approximate), Expi res: 01/21/2025 Start: 10-22-2024 End: 01-21-2025 Prealbumin [Mass/volume] in Serum or Plasma PREALBUMIN Lab STAT 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 Expected: 10/22/2024 (Approximate), Expires: 01/21/2025 [facility] Comment on above: Expected: 10/22/2024 (Approximate), Expi res: 01/21/2025 Start: 10-22-2024 End: 01-21-2025 PT panel - Platelet poor plasma by Coagulation assay PROTHROMBIN TIME Lab STAT 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 Expected: 10/22/2024 (Approximate), Expires: 01/21/2025 [facility] Comment on above: Expected: 10/22/2024 (Approximate), Expi res: 01/21/2025 Start: 10-22-2024 End: 01-21-2025 Pyridoxine [Mass/volume] in Serum or Plasma VITAMIN B6/PYRIDOXIN Lab STAT 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 Expected: 10/22/2024 (Approximate), Expires: 01/21/2025 [facility] Comment on above: Expected: 10/22/2024 (Approximate), Expi res: 01/21/2025 Start: 10-22-2024 End: 01-21-2025 Retinol [Mass/volume] in Serum or Plasma VITAMIN A/RETINOL Lab STAT 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 Expected: 10/22/2024 (Approximate), Expires: 01/21/2025 [facility] Comment on above: Expected: 10/22/2024 (Approximate), Expi res: 01/21/2025 Start: 10-22-2024 End: 01-21-2025 Thyrotropin [Units/volume] in Serum or Plasma THYROID STIMULATING HORMONE Lab STAT 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 Expected: 10/22/2024 (Approximate), Expires: 01/21/2025 [facility] Comment on above: Expected: 10/22/2024 (Approximate), Expi res: 01/21/2025 Start: 10-22-2024 End: 01-21-2025 TOXICOLOGY PANEL BLD TOXICOLOGY PANEL BLD Lab STAT 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 Expected: 10/22/2024 (Approximate), Expires: 01/21/2025 [facility] Comment on above: Expected: 10/22/2024 (Approximate), Expi res: 01/21/2025 Start: 10-22-2024 End: 01-21-2025 TRACE ELEMENTS/TPN TRACE ELEMENTS/TPN Lab STAT 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 Expected: 10/22/2024 (Approximate), Expires: 01/21/2025 [facility] Comment on above: Expected: 10/22/2024 (Approximate), Expi res: 01/21/2025 Start: 10-22-2024 End: 01-21-2025 TYPE + SCREEN TYPE + SCREEN Blood Bank STAT 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 Expected: 10/22/2024 (Approximate), Expires: 01/21/2025 [facility] Work Phone: Comment on above: Expected: 10/22/2024 (Approximate), Expi res: 01/21/2025 Start: 10-22-2024 End: 10-22-2024 Patient encounter procedure 10/22/2024 11:00 AM EDT Office Visit Vascular Medicine [address] [place] [address] Akua Grigsby MD [address] [place] [address] 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 Comment on above: DX: SMA and leg arterial thrombosis Start: 10-17-2024 End: 10-17-2024 Patient encounter procedure General Surgery Comment on above: post op ACS Start: 10-11-2024 End: 01-10-2025 TOXICOLOGY SCREEN, ROUTINE URINE TOXICOLOGY SCREEN, ROUTINE URINE Lab Routine 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 Expected: 10/11/2024, Expires: 01/10/2025 [facility] Comment on above: Expected: 10/11/2024, Expires: Start: 10-10-2024 End: 10-10-2024 Patient encounter procedure 10/10/2024 12:15 PM EDT Office Visit General Surgery [address] [address] Peter Smith MD [address] [place] [address] post op ACS General Surgery Comment on above: post op ACS Start: 10-06-2024 End: 01-05-2025 CBC W Auto Differential panel - Blood COMPLETE BLOOD COUNT AND DIFFERENTIAL Lab Routine Anemia, unspecified type Expected: 10/06/2024, Expires: 01/05/2025 [facility] Comment on above: Expected: 10/06/2024, Expires: Start: 10-06-2024 End: 01-05-2025 Iron and Iron binding capacity panel - Serum or Plasma IRON AND TIBC Lab Routine Anemia, unspecified type Expected: 10/06/2024, Expires: 01/05/2025 [facility] Work Phone: Comment on above: Expected: 10/06/2024, Expires: Start: 10-02-2024 End: 10-02-2024 ambulatory 10/02/2024 3:00 PM EDT Visit (SP) Office Hematology/Oncology [address] [place], [place] [id number] Martín Pendleton DO [address] [place], [place] [id number] HVAC SERVICE TECHNICIAN/DX: Hematology/Oncology Comment on above: HVAC SERVICE TECHNICIAN/DX: Start: 10-02-2024 End: 01-01-2025 B 2 GPI IGG & IGM [facility] Comment on above: Expected: 10/02/2024, Expires: Start: 10-02-2024 End: 01-01-2025 Cardiolipin IgG and IgM panel - Serum [facility] Comment on above: Expected: 10/02/2024, Expires: Start: 10-02-2024 End: 01-01-2025 Ferritin [Mass/volume] in Serum or Plasma [facility] Comment on above: Expected: 10/02/2024, Expires: Start: 10-02-2024 End: 01-01-2025 Iron and Iron binding capacity panel - Serum or Plasma [facility] Comment on above: Expected: 10/02/2024, Expires: Start: 10-02-2024 End: 01-01-2025 MONOCLONAL PROTEIN, SERUM (BLOOD) [facility] Work Phone: Comment on above: Expected: 10/02/2024, Expires: Start: 10-02-2024 End: 01-01-2025 PROTEIN C FUNCT [facility] Comment on above: Expected: 10/02/2024, Expires: Start: 10-02-2024 End: 01-01-2025 PROTEIN ELECTROPHORESIS SERUM W/INTERP [facility] Comment on above: Expected: 10/02/2024, Expires: Start: 10-02-2024 End: 01-01-2025 PROTEIN S CLOTTABLE [facility] Comment on above: Expected: 10/02/2024 (Approximate), Expi res: 01/01/2025 Start: 10-02-2024 End: 01-01-2025 PROTEIN S IMMUNO [facility] Comment on above: Expected: 10/02/2024, Expires: Start: 10-02-2024 End: 01-01-2025 Transferrin receptor.soluble [Mass/volume] in Serum or Plasma [facility] Comment on above: Expected: 10/02/2024, Expires: Start: 10-01-2024 End: 10-01-2024 Patient encounter procedure 10/01/2024 11:00 AM EDT Office Visit Vascular Medicine [address] [place] [address] Akua Grigsby MD [address] [place] [address] 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 Comment on above: DX: SMA and leg arterial thrombosis Start: 09-19-2024 End: 09-19-2024 Patient encounter procedure Vascular Surgery Comment on above: Hospital FU DX:SMA occlusion Start: 09-10-2024 End: 09-10-2024 Follow-up encounter 09/10/2024 2:00 PM EDT [facility] [address] [place] [address] Clayton Granados, GERIATRIC SOCIAL WORK PROFESSOR.MANUFACTURING MILLWRIGHT [address] [place] [phone] Follow up Psychiatry Comment on above: Follow up Start: 08-20-2024 End: 08-20-2024 Laps abd prtm&omentum dx w/wo spec br/wa spx LAPAROSCOPY DIAGNOSTIC Aortic mural thrombus (HCC) 08/20/2024 12:41 PM EST [facility] Start: 08-20-2024 End: 08-20-2024 Slctv cathj 2nd order abdl pel/lxtr art brnch ANGIOGRAM MESENTERIC Aortic mural thrombus (HCC) 08/20/2024 12:41 PM EST [facility] Start: 06-25-2024 End: 06-25-2024 Patient encounter procedure 06/25/2024 11:00 AM EST Office Visit [facility] [place] [address] [place], [place] [address] Yesenia Rangel, GERIATRIC SOCIAL WORK PROFESSOR.MANUFACTURING MILLWRIGHT [address] [place], [place] [phone] physical [facility] [place] Comment on above: physical Start: 05-18-2024 End: 05-18-2024 ambulatory 05/18/2024 2:00 PM EST [facility] [address] [place] [phone] Clayton Granados, GERIATRIC SOCIAL WORK PROFESSOR.MANUFACTURING MILLWRIGHT [address] [place] [phone] med check Psychiatry Comment on above: med check Start: 05-18-2024 End: 08-17-2024 BENZO CONFIRM, URINE BENZO CONFIRM, URINE Lab Routine Encounter for long-term (current) use of medications Expected: 05/18/2024, Expires: 08/17/2024 [facility] Comment on above: Expected: 05/18/2024, Expires: 5 Start: 05-18-2024 End: 08-17-2024 CBC W Auto Differential panel - Blood COMPLETE BLOOD COUNT AND DIFFERENTIAL Lab Routine Encounter for long-term (current) use of medications Expected: 05/18/2024, Expires: 08/17/2024 [facility] Comment on above: Expected: 05/18/2024, Expires: Start: 05-18-2024 End: 08-17-2024 Comprehensive metabolic 2000 panel - Serum or Plasma COMPREHENSIVE METABOLIC PANEL Lab Routine Encounter for long-term (current) use of medications Expected: 05/18/2024, Expires: 08/17/2024 [facility] Work Phone: Comment on above: Expected: 05/18/2024, Expires: Start: 05-18-2024 End: 08-17-2024 Hemoglobin A1c in Blood HEMOGLOBIN A1C Lab Routine Encounter for long-term (current) use of medications Expected: 05/18/2024, Expires: 08/17/2024 [facility] Comment on above: Expected: 05/18/2024, Expires: Start: 05-18-2024 End: 08-17-2024 Lipid 1996 panel - Serum or Plasma LIPID PANEL BASIC Lab Routine Encounter for long-term (current) use of medications Expected: 05/18/2024, Expires: 08/17/2024 [facility] Comment on above: Expected: 05/18/2024, Expires: Start: 05-18-2024 End: 08-17-2024 PHOSPHATIDYLETHANOL (PETH) PHOSPHATIDYLETHANOL (PETH) Lab Routine Encounter for long-term (current) use of medications Expected: 05/18/2024, Expires: 08/17/2024 [facility] Comment on above: Expected: 05/18/2024, Expires: Start: 05-18-2024 End: 08-17-2024 Thyrotropin [Units/volume] in Serum or Plasma THYROID STIMULATING HORMONE Lab Routine Encounter for long-term (current) use of medications Expected: 05/18/2024, Expires: 08/17/2024 [facility] Comment on above: Expected: 05/18/2024, Expires: Start: 05-18-2024 End: 08-17-2024 TOXICOLOGY SCREEN, ROUTINE URINE TOXICOLOGY SCREEN, ROUTINE URINE Lab Routine Encounter for long-term (current) use of medications Expected: 05/18/2024, Expires: 08/17/2024 [facility] Comment on above: Expected: 05/18/2024, Expires: Start: 03-03-2024 End: 03-03-2024 Follow-up encounter 03/03/2024 1:00 PM EDT [facility] [address] [facility] [place] [phone] Clayton Granados, GERIATRIC SOCIAL WORK PROFESSOR.MANUFACTURING MILLWRIGHT [address] [place] [phone] Follow up Psychiatry Comment on above: Follow up Start: 02-26-2024 Covid-19 Vaccine ( season) Covid-19 Vaccine () [facility] Start: 02-26-2024 Covid-19 Vaccine () Covid-19 Vaccine () [facility] Start: 02-26-2024 Influenza vaccination [facility] Start: 01-19-2024 End: 01-19-2024 Follow-up encounter 01/19/2024 9:00 AM EDT [facility] [address] [facility] [place] [place] [phone] Clayton Granados, GERIATRIC SOCIAL WORK PROFESSOR.MANUFACTURING MILLWRIGHT [address] [facility] [place] [place] [phone] Follow up Psychiatry Comment on above: Follow up Start: 12-30-2023 End: 12-30-2023 Follow-up encounter 12/30/2023 2:00 PM EDT [facility] [address] [facility] [place] [place] [phone] Clayton Granados, GERIATRIC SOCIAL WORK PROFESSOR.MANUFACTURING MILLWRIGHT [address] [facility] [place] [place] [phone] FOLLOW UP Psychiatry Comment on above: FOLLOW UP Start: 10-28-2023 End: 10-28-2023 Patient encounter procedure 10/28/2023 8:20 AM EDT Office Visit [facility] [place] [address] [facility] [place], [place] [phone] Cosme Boland DO [address] [place] [address] missing periods [facility] [place] Comment on above: missing periods Start: 2023 Screening for malignant neoplasm of breast Mammogram Screening [facility] Start: 09-08-2023 End: 12-08-2023 TOX SCREEN ROUT UR TOX SCREEN ROUT UR Lab Routine Encounter for long-term (current) use of medications History of marijuana use Expected: 09/08/2023, Expires: 12/08/2023 [facility] Work Phone: Comment on above: Expected: 09/08/2023, Expires: Start: 09-02-2023 End: 12-02-2023 Comprehensive metabolic 2000 panel - Serum or Plasma COMP METABOLIC PANEL Lab Routine Encounter for long-term (current) use of medications Expected: 09/02/2023, Expires: 12/02/2023 [facility] Work Phone: Comment on above: Expected: 09/02/2023, Expires: 4 Start: 09-02-2023 End: 12-02-2023 Hemoglobin A1c in Blood HGB A1C Lab Routine Encounter for long-term (current) use of medications Expected: 09/02/2023, Expires: 12/02/2023 [facility] Work Phone: Comment on above: Expected: 09/02/2023, Expires: Start: 09-02-2023 End: 12-02-2023 Lipid 1996 panel - Serum or Plasma LIPID PANEL BASIC Lab Routine Encounter for long-term (current) use of medications Expected: 09/02/2023, Expires: 12/02/2023 [facility] Work Phone: Comment on above: Expected: 09/02/2023, Expires: 4 Start: 07-12-2023 HPV TESTING HPV TESTING [facility] Start: 07-12-2023 PAP TESTING PAP TESTING [facility] Start: 07-12-2023 Screening for malignant neoplasm of cervix [facility] Start: 06-27-2023 Depression Assessment Depression Assessment [facility] Start: 05-16-2023 End: 08-15-2023 Comprehensive metabolic 2000 panel - Serum or Plasma COMP METABOLIC PANEL Lab Routine Encounter for long-term (current) use of medications Expected: 05/16/2023, Expires: 08/15/2023 [facility] Work Phone: Comment on above: Expected: 05/16/2023, Expires: 4 Start: 05-16-2023 End: 08-15-2023 Hemoglobin A1c in Blood HGB A1C Lab Routine Encounter for long-term (current) use of medications Expected: 05/16/2023, Expires: 08/15/2023 [facility] Work Phone: Comment on above: Expected: 05/16/2023, Expires: 4 Start: 05-16-2023 End: 08-15-2023 Lipid 1996 panel - Serum or Plasma LIPID PANEL BASIC Lab Routine Encounter for long-term (current) use of medications Expected: 05/16/2023, Expires: 08/15/2023 [facility] Work Phone: Comment on above: Expected: 05/16/2023, Expires: 4 Start: 03-04-2023 Adult depression screening assessment DEPRESSION SCREENING [facility] Start: 02-25-2023 Covid-19 Vaccine ( season) Covid-19 Vaccine ( season) [facility] Start: 02-25-2023 Influenza vaccination [facility] Start: 01-27-2023 Adult depression screening assessment DEPRESSION SCREENING [facility] Start: 12-24-2022 Influenza vaccination INFLUENZA (#1) [facility] Comment on above: Postponed from 02/25/2022 (Declined at t his time) Start: 12-23-2022 Adult depression screening assessment DEPRESSION SCREENING [facility] Start: 11-12-2022 Adult depression screening assessment DEPRESSION SCREENING [facility] Start: 10-28-2022 End: 12-28-2022 TOX SCREEN ROUT UR TOX SCREEN ROUT UR Lab Routine History of marijuana use Expected: 10/28/2022, Expires: 12/28/2022 [facility] Work Phone: Comment on above: Expected: 10/28/2022, Expires: 3 Start: 10-26-2022 Adult depression screening assessment DEPRESSION SCREENING [facility] Start: 09-30-2022 End: 11-30-2022 Basic metabolic 2000 panel - Serum or Plasma [facility] Work Phone: Comment on above: Expected: 09/30/2022, Expires: 3 Start: 09-30-2022 End: 11-30-2022 Choriogonadotropin ( test) [Presence] in Urine [facility] Work Phone: Comment on above: Expected: 09/30/2022, Expires: 3 Start: 09-30-2022 End: 11-30-2022 ETHYL GLUCURONIDE UR SCR [facility] Work Phone: Comment on above: Expected: 09/30/2022, Expires: 3 Start: 09-30-2022 End: 11-30-2022 TOX SCREEN ROUT UR [facility] Work Phone: Comment on above: Expected: 09/30/2022, Expires: 3 Start: 08-27-2022 Adult depression screening assessment DEPRESSION SCREENING [facility] Start: 07-20-2022 COVID-19 VACCINE (#1) COVID-19 VACCINE (#1) [facility] Comment on above: Postponed from 09/08/1988 (Declined at t his time) Postponed from 03/11 (Declined at this time) Start: 07-20-2022 COVID-19 VACCINE (1) COVID-19 VACCINE (1) [facility] Comment on above: Postponed from 09/08/1988 (Declined at t his time) Start: 07-05-2022 End: 09-04-2022 TOX SCREEN ROUT UR TOX SCREEN ROUT UR Lab Routine Marijuana use Expected: 07/05/2022, Expires: 09/04/2022 [facility] Work Phone: Comment on above: Expected: 07/05/2022, Expires: 3 Start: 06-27-2022 DEPRESSION ASSESSMENT DEPRESSION ASSESSMENT [facility] Start: 02-25-2022 Influenza vaccination [facility] Start: 02-02-2022 End: 04-04-2022 25-hydroxyvitamin D3 [Mass/volume] in Serum or Plasma VITAMIN D 25 HYDROXY Lab Routine Fatigue, unspecified type Myalgia Expected: 02/02/2022, Expires: 04/04/2022 [facility] Work Phone: Comment on above: Expected: 02/02/2022, Expires: 2 Start: 02-02-2022 End: 04-04-2022 C reactive protein [Mass/volume] in Serum or Plasma C-REACTIVE PROTEIN (CRP) Lab Routine Bilateral hand pain Foot pain, bilateral Expected: 02/02/2022, Expires: 04/04/2022 [facility] Work Phone: Comment on above: Expected: 02/02/2022, Expires: 2 Start: 02-02-2022 End: 04-04-2022 CBC W Auto Differential panel - Blood CBC + DIFF Lab Routine Fatigue, unspecified type Myalgia Expected: 02/02/2022, Expires: 04/04/2022 [facility] Work Phone: Comment on above: Expected: 02/02/2022, Expires: 2 Start: 02-02-2022 End: 04-04-2022 Cobalamin (Vitamin B12) [Mass/volume] in Serum or Plasma VITAMIN B12 BLOOD Lab Routine Fatigue, unspecified type Myalgia Expected: 02/02/2022, Expires: 04/04/2022 [facility] Work Phone: Comment on above: Expected: 02/02/2022, Expires: 2 Start: 02-02-2022 End: 04-04-2022 Comprehensive metabolic 2000 panel - Serum or Plasma COMP METABOLIC PANEL Lab Routine Fatigue, unspecified type Myalgia Expected: 02/02/2022, Expires: 04/04/2022 [facility] Work Phone: Comment on above: Expected: 02/02/2022, Expires: 2 Start: 02-02-2022 End: 04-04-2022 Cyclic citrullinated peptide IgG Ab [Units/volume] in Serum or Plasma CCP ANTIBODY IGG Lab Routine Bilateral hand pain Foot pain, bilateral Expected: 02/02/2022, Expires: 04/04/2022 [facility] Work Phone: Comment on above: Expected: 02/02/2022, Expires: 2 Start: 02-02-2022 End: 04-04-2022 Erythrocyte sedimentation rate SED RATE WESTERGREN Lab Routine Bilateral hand pain Foot pain, bilateral Expected: 02/02/2022, Expires: 04/04/2022 [facility] Work Phone: Comment on above: Expected: 02/02/2022, Expires: 2 Start: 02-02-2022 End: 04-04-2022 Extractable nuclear Ab panel - Serum ANTI ABIGAIL ID Lab Routine Bilateral hand pain Foot pain, bilateral Expected: 02/02/2022, Expires: 04/04/2022 [facility] Work Phone: Comment on above: Expected: 02/02/2022, Expires: 2 Start: 02-02-2022 End: 04-04-2022 Ferritin [Mass/volume] in Serum or Plasma FERRITIN BLD Lab Routine Myalgia Iron deficiency Expected: 02/02/2022, Expires: 04/04/2022 [facility] Work Phone: Comment on above: Expected: 02/02/2022, Expires: 2 Start: 02-02-2022 End: 04-04-2022 Iron and Iron binding capacity panel - Serum or Plasma IRON + TIBC Lab Routine Myalgia Iron deficiency Expected: 02/02/2022, Expires: 04/04/2022 [facility] Work Phone: Comment on above: Expected: 02/02/2022, Expires: 2 Start: 02-02-2022 End: 04-04-2022 Magnesium [Mass/volume] in Serum or Plasma MAGNESIUM BLD Lab Routine Bilateral hand pain Foot pain, bilateral Expected: 02/02/2022, Expires: 04/04/2022 [facility] Work Phone: Comment on above: Expected: 02/02/2022, Expires: 2 Start: 02-02-2022 End: 04-04-2022 Nuclear Ab [Presence] in Serum by Immunoassay ROBERTA BLOOD Lab Routine Bilateral hand pain Foot pain, bilateral Expected: 02/02/2022, Expires: 04/04/2022 [facility] Work Phone: Comment on above: Expected: 02/02/2022, Expires: 2 Start: 02-02-2022 End: 04-04-2022 Rheumatoid factor [Units/volume] in Serum or Plasma RHEUMATOID FACTOR BL Lab Routine Bilateral hand pain Foot pain, bilateral Expected: 02/02/2022, Expires: 04/04/2022 [facility] Work Phone: Comment on above: Expected: 02/02/2022, Expires: 2 Start: 01-11-2022 End: 03-13-2022 TOX SCREEN ROUT UR TOX SCREEN ROUT UR Lab Routine ELIJAH (generalized anxiety disorder) Expected: 01/11/2022, Expires: 03/13/2022 [facility] Work Phone: Comment on above: Expected: 01/11/2022, Expires: 2 Start: 10-27-2021 End: 12-27-2021 Comprehensive metabolic 2000 panel - Serum or Plasma COMP METABOLIC PANEL Lab Routine ELIJAH (generalized anxiety disorder) Bipolar 2 disorder (HCC) Expected: 10/27/2021, Expires: 12/27/2021 [facility] Work Phone: Comment on above: Expected: 10/27/2021, Expires: 2 Start: 10-27-2021 End: 12-27-2021 TOX SCREEN ROUT UR TOX SCREEN ROUT UR Lab Routine ELIJAH (generalized anxiety disorder) Bipolar 2 disorder (HCC) Expected: 10/27/2021, Expires: 12/27/2021 [facility] Work Phone: Comment on above: Expected: 10/27/2021, Expires: 2 Start: 09-08-2010 HPV Vaccine (1 - 3-dose SCDM series) HPV Vaccine (1 - 3-dose SCDM series) [facility] Start: 09-08-2002 Hepatitis B Vaccine (1 of 3 - 19+ 3-dose series) Hepatitis B Vaccine (1 of 3 - 19+ 3-dose series) [facility] Start: 09-08-2002 ONE PNEUMOVAX PRIOR TO AGE 65 ONE PNEUMOVAX PRIOR TO AGE 65 [facility] Start: 09-08-2002 Pneumococcal vaccination Pneumococcal Vaccine (1 of 2 - PCV) [facility] Start: 09-08-2001 Depression Screening Depression Screening [facility] Start: 09-08-2001 HEPATITIS C SCREENING HEPATITIS C SCREENING [facility] Start: 09-08-2001 Hepatitis C screening Hepatitis C Screening [facility] Start: 09-08-2001 HIV SCREENING HIV SCREENING [facility] Start: 09-08-2001 HIV screening HIV Screening [facility] Start: 09-08-1993 Glaucoma screening Dilated Retinal Exam [facility] Start: 09-08-1993 Hepatitis B screening Urine Albumin:Creatinine Ratio [facility] Start: 09-08-1989 PNEUMOCOCCAL (1 - PCV) PNEUMOCOCCAL (1 - PCV) [facility] Start: 09-08-1989 [facility] Start: 03-11-1984 COVID-19 VACCINE (#1) COVID-19 VACCINE (#1) [facility] Start: 1983 HEPATITIS B (1 of 3 - 3-dose series) HEPATITIS B (1 of 3 - 3-dose series) [facility] Start: 1983 Hepatitis B Vaccine (1 of 3 - 3-dose series) Hepatitis B Vaccine (1 of 3 - 3-dose series) [facility] BETA 2 GLYCOPROTEIN, IGG BETA 2 GLYCOPROTEIN, IGG Lab Routine Antiphospholipid antibody syndrome (HCC) Superior mesenteric artery thrombosis (HCC) 10/02/2024 3:47 PM EDT [facility] BETA 2 GLYCOPROTEIN, IGM BETA 2 GLYCOPROTEIN, IGM Lab Routine Antiphospholipid antibody syndrome (HCC) Superior mesenteric artery thrombosis (HCC) 10/02/2024 3:47 PM EDT [facility] Cardiolipin IgA Ab [Units/volume] in Serum by Immunoassay CARDIOLIPIN IGA ABS Lab Routine Antiphospholipid antibody syndrome (HCC) Superior mesenteric artery thrombosis (HCC) 10/02/2024 3:47 PM EDT [facility] CARDIOLIPIN IGG ABS CARDIOLIPIN IGG ABS Lab Routine Antiphospholipid antibody syndrome (HCC) Superior mesenteric artery thrombosis (HCC) 10/02/2024 3:47 PM EDT [facility] CARDIOLIPIN IGM ABS CARDIOLIPIN IGM ABS Lab Routine Antiphospholipid antibody syndrome (HCC) Superior mesenteric artery thrombosis (HCC) 10/02/2024 3:47 PM EDT [facility] End: 11-10-2025 CT Chest W contrast IV CT CHEST W IVCON Radiology Routine Disorder of artery or arteriole 1 Occurrences starting 10/11/2024 until 11/10/2025 [facility] Comment on above: 1 Occurrences starting 10/11/2024 until 11/10/2025 End: 12-24-2022 ECG COMPLETE ECG COMPLETE ECG Routine ELIJAH (generalized anxiety disorder) 1 Occurrences starting 12/24/2021 until 12/24/2022 [facility] Work Phone: Comment on above: 1 Occurrences starting 12/24/2021 until 12/24/2022 End: 03-14-2024 ECG COMPLETE ECG COMPLETE ECG Routine Encounter for long-term (current) use of medications 1 Occurrences starting 03/14/2023 until 03/14/2024 [facility] Work Phone: Comment on above: 1 Occurrences starting 03/14/2023 until 03/14/2024 End: 05-18-2025 ECG COMPLETE ECG COMPLETE ECG Routine Encounter for long-term (current) use of medications 1 Occurrences starting 05/18/2024 until 05/18/2025 [facility] Comment on above: 1 Occurrences starting 05/18/2024 until 05/18/2025 ECG COMPLETE ECG COMPLETE ECG Routine Medication management Ordered: 08/07/2024 [facility] Work Phone: Comment on above: Ordered: 08/07/2024 End: 10-11-2025 EGD DIAGNOSTIC EGD DIAGNOSTIC Endoscopy Routine 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 1 Occurrences starting 10/11/2024 until 10/11/2025 [facility] Comment on above: 1 Occurrences starting 10/11/2024 until 10/11/2025 End: 10-11-2025 Flexible sigmoidoscopy study COLONOSCOPY DIAGNOSTIC Endoscopy Routine 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 1 Occurrences starting 10/11/2024 until 10/11/2025 [facility] Comment on above: 1 Occurrences starting 10/11/2024 until 10/11/2025 IMMUNOFIXATION SCREE N, SERUM IMMUNOFIXATION SCREEN, SERUM Lab Routine Antiphospholipid antibody syndrome (HCC) Superior mesenteric artery thrombosis (HCC) 10/02/2024 3:47 PM EDT [facility] KAPPA/JULIAN,FREE,SER KAPPA/JULIAN,F REE,SER Lab Routine Antiphospholipid antibody syndrome (HCC) Superior mesenteric artery thrombosis (HCC) 10/02/2024 3:47 PM EDT [facility] End: 11-17-2024 MG Breast Screening MILO SCREENING Radiology Routine Encounter for screening mammogram for breast cancer 1 Occurrences starting 10/19/2023 until 11/17/2024 [facility] Work Phone: Comment on above: 1 Occurrences starting 10/19/2023 until 11/17/2024 Protein [Mass/volume ] in Serum or Plasma PROTEIN, TOTAL Lab Routine Antiphospholipid antibody syndrome (HCC) Superior mesenteric artery thrombosis (HCC) 10/02/2024 3:47 PM EDT [facility] PROTEIN ELECTROPHORE SIS SERUM (P) PROTEIN ELECTROPHORESIS SERUM (P) Lab Routine Antiphospholipid antibody syndrome (HCC) Superior mesenteric artery thrombosis (HCC) 10/02/2024 3:47 PM EDT [facility] End: 03-11-2026 PT panel - Platelet poor plasma by Coagulation assay PROTHROMBIN TIME Lab Routine Deep vein thrombosis (DVT) of proximal lower extremity, unspecified chronicity, unspecified laterality (HCC) 2x per week for 99 Occurrences starting 03/11/2025 until 03/11/2026 [facility] Work Phone: Comment on above: 2x per week for 99 Occurrences starting 03/11/2025 until 03/11/2026 End: 11-10-2025 RF Colon Views W barium contrast UT XR COLON SINGLE CONTRAST Radiology Routine 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 1 Occurrences starting 10/11/2024 until 11/10/2025 [facility] Comment on above: 1 Occurrences starting 10/11/2024 until 11/10/2025 End: 11-10-2025 RF Gastrointestinal tract upper Views W barium contrast PO XR UPPER GI SINGLE CONTRAST Radiology Routine 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 1 Occurrences starting 10/11/2024 until 11/10/2025 [facility] Comment on above: 1 Occurrences starting 10/11/2024 until 11/10/2025 End: 09-11-2025 US Lower extremity artery - bilateral [facility] Work Phone: Comment on above: 1 Occurrences starting 09/11/2024 until 09/11/2025 End: 09-19-2025 US Lower extremity artery - bilateral [facility] Work Phone: Comment on above: 1 Occurrences starting 09/19/2024 until 09/19/2025 End: 03-04-2023 XR FOOT GENERAL 3V AP/LAT/OBL BILATERAL XR FOOT GENERAL 3V AP/LAT/OBL BILATERAL Radiology Routine Foot pain, bilateral 1 Occurrences starting 02/02/2022 until 03/04/2023 [facility] Work Phone: Comment on above: 1 Occurrences starting 02/02/2022 until 03/04/2023 End: 11-10-2025 XR GI SMALL BOWEL FOLLOW-THRU XR GI SMALL BOWEL FOLLOW-THRU Radiology Routine 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 1 Occurrences starting 10/11/2024 until 11/10/2025 [facility] Comment on above: 1 Occurrences starting 10/11/2024 until 11/10/2025 End: 03-04-2023 XR HAND GENERAL 3V PA/LAT/OBL BILATERAL XR HAND GENERAL 3V PA/LAT/OBL BILATERAL Radiology Routine Bilateral hand pain 1 Occurrences starting 02/02/2022 until 03/04/2023 [facility] Work Phone: Comment on above: 1 Occurrences starting 02/02/2022 until 03/04/2023 [facility] Immunizations Immunization Date Immunization Notes Care Provider Fa amy 05-21-2019 tetanus toxoid, redu leilani diphtheria toxoid, and acellular pertussis vaccine, adsorbed Room Emergency [facility] 07-12-2018 influenza virus vacc ine, unspecified formulation Clayton Granados APRN.[employer] Work Phone: [facility] Payers Date Payer Category Payer Self-pay 2022 Unknown [id number] 2014 Medicaid [place] [employer] [place] [employer] [id number] 2014-Present [phone] [address] [place] [address] Medicaid [id number] 2014 Medicaid [id number]. [id number] 1985 Unknown [id number] 2.16.840.1.845938.3.579.2.66 8 1983 Unknown [id number] 2.16.840.1.215710.3.579.2.65 1 1983 Unknown [id number] 2.16.840.1.039231.3.579.2.65 1 1983 Unknown [id number] 2.16.840.1.850983.3.579.2.65 1 1983 Unknown [id number] 2.16.840.1.085391.3.579.2.65 1 1983 Unknown [id number] 2.16.840.1.667429.3.579.2.65 1 1983 Unknown [id number] 2.16.840.1.744521.3.579.2.62 7 Unknown [id number] 2.16.840.1.087399.3.579.2.46 2 Unknown [id number] 2.16.840.1.007149.3.579.2.46 2 Unknown [id number] 2.16.840.1.950096.3.579.2.46 2 Unknown [id number] 2.16.840.1.402166.3.579.2.46 2 Unknown [id number] 2.16.840.1.598107.3.579.2.46 2 Unknown [id number] 2.16.840.1.011191.3.579.2.46 2 Unknown [id number] 2.16.840.1.591712.3.579.2.46 2 Unknown [id number] 2.16.840.1.477898.3.579.2.46 2 Unknown [id number] 2.16.840.1.993971.3.579.2.46 2 Unknown [id number] 2.16.840.1.436952.3.579.2.46 2 Unknown [id number] 2.16.840.1.809630.3.579.2.46 2 Unknown [id number] 2.16.840.1.497471.3.579.2.46 2 Unknown [id number] 2.16.840.1.299392.3.579.2.46 2 Unknown [id number] 2.16.840.1.816856.3.579.2.46 2 Unknown [id number] 2.16.840.1.287443.3.579.2.46 2 Unknown [id number] 2.16.840.1.520020.3.579.2.46 2 Unknown [id number] 2.16.840.1.472661.3.579.2.46 2 Unknown [id number] 2.16.840.1.052335.3.579.2.46 2 Unknown [id number] 2.16.840.1.659949.3.579.2.46 2 Unknown [id number] 2.16.840.1.604414.3.579.2.46 2 Unknown [id number] 2.16.840.1.413613.3.579.2.46 2 Unknown [id number] 2.16.840.1.612740.3.579.2.46 2 Unknown [id number] 2.16.840.1.889684.3.579.2.46 2 Unknown [id number] 2.16.840.1.162326.3.579.2.46 2 Unknown [id number] 2.16.840.1.149478.3.579.2.46 2 Unknown [id number] 2.16.840.1.362677.3.579.2.46 2 Unknown [id number] 2.16.840.1.919480.3.579.2.46 2 Unknown [id number] 2.16.840.1.262130.3.579.2.46 2 Unknown [id number] 2.16.840.1.340176.3.579.2.46 2 Unknown [id number] 2.16.840.1.949796.3.579.2.46 2 Unknown [id number] 2.16.840.1.936093.3.579.2.46 2 Unknown [id number] 2.16.840.1.578783.3.579.2.46 2 Unknown [id number] 2.16.840.1.081584.3.579.2.46 2 Unknown [id number] 2.16.840.1.207512.3.579.2.46 2 Unknown [id number] 2.16.840.1.745925.3.579.2.46 2 Unknown [id number] 2.16.840.1.972599.3.579.2.46 2 Unknown [id number] 2.16.840.1.744138.3.579.2.46 2 Unknown [id number] 2.16.840.1.036730.3.579.2.46 2 Unknown [id number] 2.16.840.1.230069.3.579.2.46 2 Unknown [id number] 2.16.840.1.572001.3.579.2.46 2 Worker's Compensation Social History Date Type Detail Facility Start: 07-18-2019 End: 09-19-2024 Tobacco smoking status NHIS Smokes tobacco daily [facility] Work Phone: End: 04-13-2015 History of tobacco use Smoker [facility] Work Phone: Start: 07-18-2019 End: 10-02-2024 Tobacco use and exposure Smokeless tobacco non-user [facility] Work Phone: Start: 10-10-2021 End: 08-20-2024 Alcohol intake Current drinker of alcohol (finding) [facility] Start: 07-18-2021 History SDOH Alcohol Frequency 4 [facility] Start: 07-18-2021 End: 07-13-2022 History SDOH Alcohol Std Drinks 2 [facility] Start: 07-18-2021 End: 07-13-2022 History SDOH Social Connections Gnosticism 1 [facility] Start: 07-18-2021 End: 07-13-2022 History SDOH Social Connections Living 7 [facility] Start: 07-18-2021 End: 07-13-2022 History SDOH Stress 5 [facility] Start: 11-07-2019 Education 21 [facility] Start: 1985 Sex Assigned At Not on file C [facility] Start: 09-30-2021 End: 10-10-2021 Exposure to SARS-CoV-2 (event) Yes [facility] Start: 02-10-2021 End: 03-29-2022 Exposure to SARS-CoV-2 (event) Not sure [facility] End: 04-13-2015 History of tobacco use Cigarette Smoker [facility] Work Phone: Start: 07-13-2022 History SDOH Alcohol Std Drinks 0 [facility] Start: 07-13-2022 History SDOH Physica l Activity MPS 3 [facility] Start: 07-12-2022 End: 01-28-2025 History of Social function [facility] Start: 07-12-2022 End: 01-28-2025 Social connection and isolation panel [facility] Do you belong to any clubs or organizations such as holiness groups, unions, fraternal or athletic groups, or school groups? No [facility] Are you now , , , , never or living with a partner? Never [facility] How often to you hav e a drink containing alcohol? Never [facility] Start: 05-28-[address] inks containing alcohol do you have on a typical day? Patient does not drink [facility] How hard is it for y ou to pay for the very basics like food, housing, medical care, and heating Very hard [facility] Do you feel stress - tense, restless, nervous, or anxious, or unable to sleep at night because your mind is troubled all the time - these days [OSQ] Very much [facility] (I/We) worried wheth er (my/our) food would run out before (I/we) got money to buy more. Often true [facility] Are you now , , , , never or living with a partner? Living with partner [facility] How often to you hav e a drink containing alcohol? 2-4 times a month [facility] How many standard dr inks containing alcohol do you have on a typical day? 3 or 4 [facility] How often do you hav e 6 or more drinks on 1 occasion? Less than monthly [facility] How hard is it for y ou to pay for the very basics like food, housing, medical care, and heating Somewhat hard [facility] (I/We) worried wheth er (my/our) food would run out before (I/we) got money to buy more. Never true [facility] (I/We) worried wheth er (my/our) food would run out before (I/we) got money to buy more. Sometimes true [facility] Start: 09-19-2024 Tobacco Comment Pateint only u ses the "Vape" She doesnt smoke nicotine [facility] Start: 10-02-2024 Tobacco smoking stat us NHIS Ex-smoker [facility] Start: 10-02-2024 End: 03-01-2025 Alcoholic beverage intake Ex-drinker (finding) [facility] Start: 10-02-2024 Tobacco Comment Pateint only u ses the "Vape" She doesnt smoke nicotine Patient quit smoking 08/20/2024 [facility] Medical Equipment Procedure Code Equipment Code Equipment Origin al Text Equipment Identifier Dates Catheter Sampson Surecuff 9.6fr 3.2mm 1.6mm 2 Branch 90cm Central Venous 1 - [id number] Start: 08-26-2024 Tray Powerpicc 5 fr .018in Nitinol 70cm Catheter 2 Lumen Guidewire - [id number] Start: 12-08-2024 Goals Date Patient Goal Desired Activity /State Personal health goal Personal health goal Functional Status Date Assessment Result Facility 12-21-2024 Are you deaf, or do you have serious difficulty hearing No 12/21/2024 2:10 PM EDT Morena Toth, NATHANAEL No [facility] 12-21-2024 Are you blind, or do you have serious difficulty seeing, even when wearing glasses No 12/21/2024 2:10 PM EDT Morena Toth, NATHANAEL No [facility] 12-21-2024 Do you have serious difficulty walking or climbing stairs No 12/21/2024 2:10 PM EDT Morena Toth, NATHANAEL No [facility] 12-21-2024 Do you have difficul ty dressing or bathing No 12/21/2024 2:10 PM EDT Morena Toth, NATHANALE No [facility] 12-21-2024 Because of a physica l, mental, or emotional condition, do you have difficulty doing errands alone such as visiting a physician's office or shopping No 12/21/2024 2:10 PM EDT Morena Toth RN No [facility] 10-26-2024 Are you deaf, or do you have serious difficulty hearing No 10/26/2024 4:40 PM EDT Lyla Sullivan, NATHANAEL No [facility] 10-26-2024 Are you blind, or do you have serious difficulty seeing, even when wearing glasses No 10/26/2024 4:40 PM [place] Lyla Sullivan, NATHANAEL No [facility] 10-26-2024 Do you have serious difficulty walking or climbing stairs No 10/26/2024 4:40 PM EDT Lyla Sullivan, NATHANAEL No [facility] 10-26-2024 Do you have difficul ty dressing or bathing No 10/26/2024 4:40 PM Lyla Irvin, NATHANAEL No [facility] 10-26-2024 Because of a physica l, mental, or emotional condition, do you have difficulty doing errands alone such as visiting a physician's office or shopping No 10/26/2024 4:40 PM Lyla Irvin, RN No [facility] 09-03-2024 Are you deaf, or do you have serious difficulty hearing No 09/03/2024 8:13 PM Annabella Ramachandran, NATHANAEL No [facility] 09-03-2024 Are you blind, or do you have serious difficulty seeing, even when wearing glasses No 09/03/2024 8:13 PM Annabella Ramachandran, NATHANAEL No [facility] 09-03-2024 Do you have serious difficulty walking or climbing stairs No 09/03/2024 8:13 PM Annabella Ramachandran, NATHANAEL No [facility] 09-03-2024 Do you have difficul ty dressing or bathing No 09/03/2024 8:13 PM Annabella Ramachandran, NATHANAEL No [facility] 09-03-2024 Because of a physica l, mental, or emotional condition, do you have difficulty doing errands alone such as visiting a physician's office or shopping Yes 09/03/2024 8:13 PM Annabella Ramachandran, NATHANAEL Yes [facility] 01-28-2015 Are you deaf, or do you have serious difficulty hearing No 01/28/2015 11:33 AM Jennifer Davis MA No [facility] 01-28-2015 Are you blind, or do you have serious difficulty seeing, even when wearing glasses No 01/28/2015 11:33 AM Jennifer Davis MA No [facility] 01-28-2015 Do you have serious difficulty walking or climbing stairs No 01/28/2015 11:33 AM Jennifer Davis MA No [facility] 01-28-2015 Do you have difficul ty dressing or bathing No 01/28/2015 11:33 AM Jennifer Davis MA No [facility] 01-28-2015 Because of a physica l, mental, or emotional condition, do you have difficulty doing errands alone such as visiting a physician's office or shopping No 01/28/2015 11:33 AM EDT Jennifer Hilliard MA No [facility] Mental Status Date Assessment Result Facility 12-21-2024 Because of a physica l, mental, or emotional condition, do you have serious difficulty concentrating, remembering, or making decisions No 12/21/2024 2:10 PM EDT Morena Toth, NATHANAEL No [facility] 10-26-2024 Because of a physica l, mental, or emotional condition, do you have serious difficulty concentrating, remembering, or making decisions No 10/26/2024 4:40 PM EDT Lyla Sullivan, NATHANAEL No [facility] 09-03-2024 Because of a physica l, mental, or emotional condition, do you have serious difficulty concentrating, remembering, or making decisions No 09/03/2024 8:13 PM EDT Annabella Jarquin RN No [facility] 01-28-2015 Because of a physica l, mental, or emotional condition, do you have serious difficulty concentrating, remembering, or making decisions Yes 01/28/2015 11:33 AM EDT Jennifer Hilliard MA Yes [facility] Clinical Notes 11-22-2017 to 05-02-2025 Addendum Note - David Nj [facility] ED - 03/11/2025 2:16 PM EDTAddendum Note - David Nj [facility] - 03/11/2025 2:16 PM EDTTelephone Encounter - David Nj [facility] - 03/11/2025 2:14 PM EDT Note Date & Type Note Facility 05-02-2025 Note HNO ID: [id number] Author: KARTHIK MALDONADO APRN.[employer] Service: ? Author Type: Nurse Practitioner Type: Progress Notes Filed: 05/02/2025 12:36 Note Text: [facility] [place] [facility] Today's Date: 05/02/2025 Name: Daly Evans : 1985 Purpose: New Patient Consultation Chief complaint: left foot pain, left knee pain Referring Clinician: Xochilt Gaston CNP Pertinent Past Medical History: CTS, arterial occlusion, mesenteric ischemia,Hx of PPN, ileus,DMII, lupus,DVT, Toe gangrene, limb ischemia, compartment syndrome, depression, agoraphobia, bipolar, anxiety, accidental overdose, jejunostomy, Pertinent Past Surgeries: left foot amputation of 5 digits. History of Present Illness (HPI): 04/29/2025 - Initial HPI (Obtained by Karthik Maldonado CNP). DURATION AND ONSET: The pain complaint has been present for approximately 4-5 months. The pain had a sudden onset. The mechanism of injury is known and is as follows: amputation RED FLAG SYMPTOMS: leg weakness and numbness or tingling. PAIN DESCRIPTION: Timing: Constant Character: Aching, Throbbing Primary Location: left foot and left knee Radiation: none Exacerbating factors: Walking Relieving factors: Medications Interferes with: walking, sleeping, and household cleaning Daly A Lover is a 39-year-old female with a history of carpal tunnel syndrome, mesenteric ischemia, ileus, diabetes, lupus, DVT, toe gangrene, limb ischemia, compartment syndrome, depression, agoraphobia, bipolar disorder, anxiety, and accidental overdose, presenting for evaluation of left foot and knee pain. Daly reports constant, aching, and throbbing pain in her left foot and knee that began suddenly after surgery approximately 4-5 months ago. She underwent amputation of all toes on her left foot and debridement of her heel. The pain is associated with weakness, numbness, tingling, and phantom pain in the left leg. The pain is aggravated by walking and sometimes wakes her up at night. She also reports that the pain interferes with her ability to perform household cleaning. She has tried gabapentin 300 mg, which was ineffective, and is currently taking Percocet prescribed by her nurse practitioner at [facility], which she reports helps significantly. She is unable to take NSAIDs due to being on Eliquis. She has also tried Tylenol, which she reports does not provide relief. She has not tried muscle relaxers or topical creams for the pain. She has not participated in physical therapy. Daly is also experiencing pain in her left knee and is planning to undergo total knee replacement surgery after the holidays. She has had one cortisone injection in her knee, which did not provide relief. She is currently seeing a doctor at [facility] for her knee pain and is awaiting an MRI. She previously saw Dr. Morrison, who has since . Current Pain Medications: Neuropathics: NSAIDS: Muscle Relaxants: Topicals: Other Prescription or OTC Pain Medications: Opioids (when applicable): percocet Anti-depressants or Mood-Stabilizers: Lexapro, latuda, zyprexa Anti-Coagulants: Eliquis Therapies Attended (Current or Most Recent): No Current Therapies 05/02/2025 AG SPINE COMBINATION Questionnaire GREENLIGHT Completed Date 05/02/2025 Questionnaire Opiod Risk Tool Completed Date 05/02/2025 Comments MOD.RISK-5 Greenlight Questionnaire GREENLIGHT Completed Date 05/02/2025 Opioid Risk Tool Opiod Risk Tool Date Completed 05/02/2025 Comments MOD.RISK-5 ELIJAH-7 Anxiety Score 10 Completed Date 05/02/2025 PHQ9P Score 14 Completed Date 05/02/2025 Treatment History: PAIN PROCEDURES: DATE PROCEDURE IMPROVEMENT To date, no interventional pain management procedures performed at this practice. MEDICATIONS Taken TO DATE (for the chief complaint(s)): Neuropathics: Neurontin (Gabapentin) NSAIDS: None - On Anticoagulants Muscle Relaxants: None Topicals: None Other Prescription or OTC Pain Medications: None Opioids: Oxycodone (eg Percocet) Data Reviewed Today: Allergies: ALLERGIES Allergen Reactions Hydrocodone-Acetami* GI Upset hyperactivity SOCIAL HISTORY[1] 04/23/2025 04/29/2025 INTAKE PAIN ASSESSMENT Are you having pain associated with your visit today? No Yes, Provider notified Pain Level 8 Pain Location Heel-Left Description Aching;Dull;Numbness;Phantom;Sore ;Throbbing;Tingling Duration Amount of Time 1 Duration Units Hours Frequency Continuous Intervention/Comfort measure Medication Compliance: PDMP website checked and validated on 05/02/2025 by Karthik Maldonado APRN.[employer] All prescriptions have been APPROPRIATELY filled. No suspicious activity was identified. (more content not included)... [facility] 05-02-2025 Note HNO ID: [id number] Author: DALY RODRIGUEZ LPN Service: ? Author Type: Licensed Nurse Type: Progress Notes Filed: 05/02/2025 12:36 Note Text: Review of Systems Constitutional: Positive for activity change. Negative for chills, fever and unexpected weight change. Genitourinary: Negative for difficulty urinating. Musculoskeletal: Positive for gait problem and myalgias. Negative for arthralgias, back pain, joint swelling and neck pain. Neurological: Positive for weakness and numbness. Negative for headaches. Psychiatric/Behavioral: Positive for dysphoric mood and sleep disturbance. Negative for suicidal ideas. The patient is nervous/anxious. [facility] 03-11-2025 Note Addended by: DAVID SMITH on: 03/11/2025 02:16 PM Modules accepted: Orders [facility] 03-11-2025 Miscellaneous Notes Addended by: DAVID NJ on: 03/11/2025 02:16 PM Modules accepted: Orders Spoke with patient and advised can stop warfarin and switch to Eliquis if INR <2.0. Recommended patient have more updated INR drawn as last INR from 02/28/25 (1.4) but patient has been taking warfarin since that time. David Nj PharmD, [facility] [phone] Spoke with patient who advised she has a starter Eliquis package but needs advise on how to transition to Eliquis. [facility] will disregard referral at this time. Will route to pharmacist and [employer] to advise patient on transition from warfarin to Eliquis. Janelle Greenberg RN [facility] Patient may not be switching to warfarin. Noted in Mychart message Eliquis has been approved by insurance. Janelle Greenberg RN [facility] Call to patient's home/cell telephone number; left a voicemail message with request for the patient to return call to PAC at [phone] Option #2. Mychart message sent. Janelle Greebnerg RN Pharmacy, Anticoagulation Clinic A call was placed to patient's home and cell telephone number. A voicemail message was left with request for patient to return call to Pharmacy [facility] at [phone] Option #2 to discuss new referral to PAC. Janelle Greenberg RN Pharmacy, Anticoagulation Clinic documented in this encounter [facility] 03-11-2025 Telephone encounter Note Spoke with patient and advised can stop warfarin and switch to Eliquis if INR <2.0. Recommended patient have more updated INR drawn as last INR from 02/28/25 (1.4) but patient has been taking warfarin since that time. David Nj PharmPaulette, [facility] [phone] [facility] 03-11-2025 Telephone encounter Note Spoke with patient who advised she has a starter Eliquis package but needs advise on how to transition to Eliquis. Pharmacy Anticoagulation Clinic will disregard referral at this time. Will route to pharmacist and MANUFACTURING MILLWRIGHT to advise patient on transition from warfarin to Eliquis. Janelle Greenberg RN Pharmacy Anticoagulation Clinic [facility] 03-08-2025 Telephone encounter Note Patient may not be switching to warfarin. Noted in Mychart message Eliquis has been approved by insurance. Janelle Greenberg RN Pharmacy Anticoagulation Clinic [facility] 03-08-2025 Telephone encounter Note The following approved medication requests have been transmitted electronically. Requested Prescriptions Signed Prescriptions Disp Refills gabapentin (NEURONTIN) 300 mg capsule 60 capsule 2 Sig: Take 1 capsule by mouth every 12 hours for 90 days. Authorizing Provider: COSME BOLAND Ordering User: XOCHILT GASTNO APRN.CNP PDMP website checked and validated. All prescriptions have been APPROPRIATELY filled. No suspicious activity was identified. 03/08/2025 by Xochilt Gaston CNP. [facility] 03-08-2025 Miscellaneous Notes The following approved medication requests have been transmitted electronically. Requested Prescriptions Signed Prescriptions Disp Refills gabapentin (NEURONTIN) 300 mg capsule 60 capsule 2 Sig: Take 1 capsule by mouth every 12 hours for 90 days. Authorizing Provider: COSME BOLAND Ordering User: XOCHILT GASTON APRN.CNP PDMP website checked and validated. All prescriptions have been APPROPRIATELY filled. No suspicious activity was identified. 03/08/2025 by Xochilt Gaston CNP. Called Pt and she said she has Gabapentin 300 mg Q12H. The patient has been identified by name and date of : Yes Caregiver verified no other encounters exist for this prescription request: Yes Caregiver confirmed with patient/requestor that no other refills are due, in the near future, with this provider at this time: Yes The last office visit in the department: 03/01/2025 Does the patient have a future office visit with this provider/department: No Visit date not found Requested Prescriptions Pending Prescriptions Disp Refills gabapentin (NEURONTIN) 300 mg capsule Sig: Take 1 capsule by mouth every 12 hours. Yoli Ritter RN March 07, 2025 7:38 PM Please confirm her gabapentin dose, I'm unsure exactly what it is when looking at her MAR. Then I'm happy to send this in for her. Xochilt Gaston APRN.JUANY PDMP website checked and validated. All prescriptions have been APPROPRIATELY filled. No suspicious activity was identified. 03/07/2025 by Xochilt Gaston CNP. I am out of gabapentin, and was hoping to get a refill before the weekend. It helps my wound on my left heel, and my stomach. If you need to get a hold of me, my number is [phone]. Thanks! Laura documented in this encounter [facility] 03-07-2025 Telephone encounter Note Called Pt and she said she has Gabapentin 300 mg Q12H. The patient has been identified by name and date of : Yes Caregiver verified no other encounters exist for this prescription request: Yes Caregiver confirmed with patient/requestor that no other refills are due, in the near future, with this provider at this time: Yes The last office visit in the department: 03/01/2025 Does the patient have a future office visit with this provider/department: No Visit date not found Requested Prescriptions Pending Prescriptions Disp Refills gabapentin (NEURONTIN) 300 mg capsule Sig: Take 1 capsule by mouth every 12 hours. Yoli Ritter RN March 07, 2025 7:38 PM [facility] 03-07-2025 Telephone encounter Note Please confirm her gabapentin dose, I'm unsure exactly what it is when looking at her MAR. Then I'm happy to send this in for her. Xochilt Gaston APRN.JUANY PDMP website checked and validated. All prescriptions have been APPROPRIATELY filled. No suspicious activity was identified. 03/07/2025 by Xochilt Gaston CNP. [facility] 03-06-2025 Telephone encounter Note I am out of gabapentin, and was hoping to get a refill before the weekend. It helps my wound on my left heel, and my stomach. If you need to get a hold of me, my number is [phone]. Thanks! Laura [facility] Work Phone: 03-06-2025 Telephone encounter Note Call to patient's home/cell telephone number; left a voicemail message with request for the patient to return call to PAC at [phone] Option #2. Mychart message sent. Janelle Greenberg RN Pharmacy, Anticoagulation Clinic [facility] 03-05-2025 Telephone encounter Note Message on phone and MC left with appointment info. Fabienne Mo LPN [facility] 03-05-2025 Miscellaneous Notes Message on phone and MC left with appointment info. Fabienne Mo LPN documented in this encounter [facility] 03-01-2025 History of Present illness Narrative 03/01/2025 Recording using LightUp software for draft documentation of the visit was discussed with the patient/authorized paper sales representative; all questions welcomed and answered. Patient/authorized paper sales representative agreed to proceed HPI: The patient is a 39-year-old female with short gut syndrome and lower extremity DVT on warfarin therapy presenting for follow-up of persistent hypokalemia management and INR monitoring. Hypokalemia: - Longstanding history of hypokalemia. - Recent hospitalization last week due to severe hypokalemia, resulting in paralysis from the waist down. - Currently taking potassium 40 mEq daily, but Daly reports that tablets are sometimes not metabolized and are expelled intact. - Unable to find disintegrating tablets at local pharmacies. - Recently tried dissolvable potassium in the hospital but found it unpalatable. - Currently splitting tablets in half to aid absorption. DVTs: - Developed blood clots in both legs following a bowel obstruction surgery on 08/20. - Underwent surgical intervention to remove clots. - Currently on Coumadin 2.5 mg daily. - Recent INR was 1.4. Bowel Obstruction: - Hospitalized on 08/20 for a bowel obstruction, requiring surgical intervention and a temporary colostomy bag for 3 months. - No known cause for the obstruction. - Developed gangrene in the toes during recovery, leading to partial amputation of the second toe on the right foot. - Recent surgery to reattach intestines, resulting in removal of 75% of the small intestines and development of short bowel syndrome. - Currently experiencing frequent bowel movements, impacting daily activities and ability to work. Wound Care: - Undergoing weekly debridement for a heel wound at the wound center. - Daly reports that the wound is healing well. Family History: - Family history of alcoholism; brother is currently in rehab for alcohol addiction. - Daly has abstained from alcohol for 3 years. PAST MEDICAL HISTORY Diagnosis Date Attempted suicide ([facility]) polysubstance Bipolar depression ([facility]) [facility] Gestational diabetes mellitus in ([facility]) Impaired fasting blood sugar 06/2015 a1c 5.7% at diagnosis Iron deficiency anemia Vitamin D deficiency Current Outpatient Medications on File Prior to Visit Medication Sig OLANZapine (ZYPREXA) 20 mg tablet Take 1 tablet by mouth daily at bedtime. warfarin (COUMADIN) 5 mg tablet Take half a tablets by mouth once daily. TAKE DIRECTED PENDING LAB RESULTS escitalopram oxalate (LEXAPRO) 10 mg tablet Take 1 tablet by mouth once daily. Take with 20 mg dose. escitalopram oxalate (LEXAPRO) 20 mg tablet Take 1 tablet by mouth once daily. Take with 10 mg dose. No current facility-administered medications on file prior to visit. Review of Systems: Constitutional: (+) unintentional weight loss Gastrointestinal: (+) frequent bowel movements Skin: (+) right heel wound Physical Exam: BP 118/70 Pulse 102 Resp 16 Wt 83.9 kg (185 lb) LMP 08/29/2024 SpO2 97% BMI 28.97 kg/m GENERAL: NAD, alert and oriented. SKIN: Unremarkable, no rash or skin lesions. HEAD: Normocephalic. LUNGS: Clear to auscultation bilaterally, no wheezes/rhonchi/rales. HEART: Regular rate and rhythm, no murmurs. No ectopy. EXTREMITIES: Normal, no deformities, no skin discoloration, no edema. NEURO: Awake, alert and oriented x3, cranial nerves II-XII grossly intact, normal gait, no involuntary motions. PSYCHIATRIC: pleasant, cooperative Diagnostics Reviewed: Labs: - PT/INR: 1.4 - Potassium: 3.1 (low) Assessment/Plan: 1. Short bowel syndrome, 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 (K90.829) 2. Hypokalemia (E87.6) 3. Malnutrition of moderate degree ([facility]) (E44.0) - Extensive surgical history including bowel obstruction, colostomy, and resection of 75% of small intestine resulting in short bowel syndrome. - Chronic hypokalemia, recently worsened post-surgery; most recent potassium 3.1 mEq/L. - Increase potassium chloride to 60 mEq daily (three 20 mEq tablets daily). - Order repeat potassium and magnesium levels on Tuesday. - Discussed challenges with oral potassium absorption; advised splitting tablets and dissolving in liquid to improve absorption. - Order HbA1c to rule out diabetes as a contributing factor to wound healing issues. 4. Anticoagulation management encounter (Z51.81) 5. 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 - Recent INR 1.4, below therapeutic range (goal 2-3). - Increase warfarin to 3 mg daily; order repeat INR on Tuesday. - Refer to Coumadin clinic for ongoing management and monitoring. - Discussed potential transition to Eliquis pending insurance approval to reduce need for frequent INR monitoring; patient expressed understanding and agreement. - Advised to avoid NSAIDs and continue Tylenol for pain management. The patient indicates understanding of these issues and agrees with the plan. Red flag symptoms reviewed as needed. Follow up: Xochilt Gaston APRN.CNP documented in this encounter [facility] 03-01-2025 Telephone encounter Note A call was placed to patient's home and cell telephone number. A voicemail message was left with request for patient to return call to Pharmacy Anticoagulation Clinic at [phone] Option #2 to discuss new referral to PAC. Janelle Greenberg RN Pharmacy, Anticoagulation Clinic [facility] 03-01-2025 Instructions Xochilt Gaston APRN.CNP - 03/01/2025 11:13 AM EDT Increase your potassium pills to 3 a day and we'll recheck your level next 03/06 Increase your Coumadin (warfarin) to the 3mg daily, we'll recheck your next level 03/06 We'll get you set up with the Coumadin clinic documented in this encounter [facility] 03-01-2025 Telephone encounter Note Call placed to Daly, Reports eating 2-3 meals/day (corn/butter upset her stomach but otherwise no offending foods noted by patient) Drinking water, volume not measured. Having 5-10BM/day watery. Imodium once per day not timed with meals. Educated on taking the imodium 30 mins prior to a meal and if no BM before the next meal then hold a dose of imodium. Bloating/gas is uncomfortable she has concern for SIBO. I educated on potential side effects of continued flagyl use so maybe there is something to gain from managing bowel stoppers but will review with the team to see if we would recommend a course of antibiotics for the gas/bloating Weight is stable she reports it is 172lbs which is same weight as last weight in [facility]. HPN signed off due to noncompliance, self weaned TPN in December. Routed to ISHAAN for review Latest Ref Rng 02/28/2025 WBC 3.70 - 11.00 k/uL 7.63 RBC 3.90 - 5.20 m/uL 4.73 Hemoglobin 11.5 - 15.5 g/dL 13.1 Hematocrit 36.0 - 46.0 % 40.7 MCV 80.0 - 100.0 fL 86.0 MCH 26.0 - 34.0 pg 27.7 MCHC 30.5 - 36.0 g/dL 32.2 RDW-CV 11.5 - 15.0 % 15.1 (H) Platelet Count 150 - 400 k/uL 359 MPV 9.0 - 12.7 fL 11.2 Neut% % 59.3 Abs Neut (ANC) 1.45 - 7.50 k/uL 4.53 Lymph% % 30.3 Abs Lymph 1.00 - 4.00 k/uL 2.31 Mccreary% % 7.6 Abs Mccreary <0.87 k/uL 0.58 Eosin% % 2.0 Abs Eosin <0.46 k/uL 0.15 Baso% % 0.5 Abs Baso <0.11 k/uL 0.04 Immature Gran % % 0.3 IMMATURE GRANS (ABS) <0.10 k/uL <0.03 NRBC /100 WBC 0.0 Absolute nRBC <0.01 k/uL <0.01 DTYPE Auto Protein, Total 6.3 - 8.0 g/dL 6.7 Albumin 3.9 - 4.9 g/dL 3.2 (L) Calcium 8.5 - 10.2 mg/dL 8.3 (L) Bilirubin, Total 0.2 - 1.3 mg/dL 0.4 Alkaline Phosphatase 34 - 123 U/L 151 (H) AST 13 - 35 U/L 111 (H) ALT 7 - 38 U/L 134 (H) Glucose 74 - 99 mg/dL 95 BUN 7 - 21 mg/dL 7 Creatinine 0.58 - 0.96 mg/dL 0.99 (H) Sodium 136 - 144 mmol/L 142 Potassium 3.7 - 5.1 mmol/L 3.1 (L) Chloride 98 - 107 mmol/L 103 CO2 22 - 30 mmol/L 25 Anion Gap 8 - 15 mmol/L 14 eGFR >=60 mL/min/1.73m 74 Legend: (H) High (L) Low Chance Florentino RN [facility] 03-01-2025 Miscellaneous Notes Call placed to Daly, Reports eating 2-3 meals/day (corn/butter upset her stomach but otherwise no offending foods noted by patient) Drinking water, volume not measured. Having 5-10BM/day watery. Imodium once per day not timed with meals. Educated on taking the imodium 30 mins prior to a meal and if no BM before the next meal then hold a dose of imodium. Bloating/gas is uncomfortable she has concern for SIBO. I educated on potential side effects of continued flagyl use so maybe there is something to gain from managing bowel stoppers but will review with the team to see if we would recommend a course of antibiotics for the gas/bloating Weight is stable she reports it is 172lbs which is same weight as last weight in [facility]. HPN signed off due to noncompliance, self weaned TPN in December. Routed to ISHAAN for review Latest Ref Rng 02/28/2025 WBC 3.70 - 11.00 k/uL 7.63 RBC 3.90 - 5.20 m/uL 4.73 Hemoglobin 11.5 - 15.5 g/dL 13.1 Hematocrit 36.0 - 46.0 % 40.7 MCV 80.0 - 100.0 fL 86.0 MCH 26.0 - 34.0 pg 27.7 MCHC 30.5 - 36.0 g/dL 32.2 RDW-CV 11.5 - 15.0 % 15.1 (H) Platelet Count 150 - 400 k/uL 359 MPV 9.0 - 12.7 fL 11.2 Neut% % 59.3 Abs Neut (ANC) 1.45 - 7.50 k/uL 4.53 Lymph% % 30.3 Abs Lymph 1.00 - 4.00 k/uL 2.31 Mccreary% % 7.6 Abs Mccreary <0.87 k/uL 0.58 Eosin% % 2.0 Abs Eosin <0.46 k/uL 0.15 Baso% % 0.5 Abs Baso <0.11 k/uL 0.04 Immature Gran % % 0.3 IMMATURE GRANS (ABS) <0.10 k/uL <0.03 NRBC /100 WBC 0.0 Absolute nRBC <0.01 k/uL <0.01 DTYPE Auto Protein, Total 6.3 - 8.0 g/dL 6.7 Albumin 3.9 - 4.9 g/dL 3.2 (L) Calcium 8.5 - 10.2 mg/dL 8.3 (L) Bilirubin, Total 0.2 - 1.3 mg/dL 0.4 Alkaline Phosphatase 34 - 123 U/L 151 (H) AST 13 - 35 U/L 111 (H) ALT 7 - 38 U/L 134 (H) Glucose 74 - 99 mg/dL 95 BUN 7 - 21 mg/dL 7 Creatinine 0.58 - 0.96 mg/dL 0.99 (H) Sodium 136 - 144 mmol/L 142 Potassium 3.7 - 5.1 mmol/L 3.1 (L) Chloride 98 - 107 mmol/L 103 CO2 22 - 30 mmol/L 25 Anion Gap 8 - 15 mmol/L 14 eGFR >=60 mL/min/1.73m 74 Legend: (H) High (L) Low Chance Florentino RN documented in this encounter [facility] 03-01-2025 Telephone encounter Note Addressed in phone encounter Chance Florentino RN [facility] 03-01-2025 Miscellaneous Notes Addressed in phone encounter Chance Florentino RN documented in this encounter [facility] 02-26-2025 Instructions Clayton Granados APRN.[employer] - 02/26/2025 4:04 PM EDT - Continue your oral potassium tablets as prescribed since you were discharged; take them each day as directed. - Keep taking Coumadin (warfarin) as usual; no changes or bleeding issues noted. - Continue Zyprexa at your current dose; refill has been sent to your pharmacy. - Maintain Lexapro 30 mg daily until we review your latest blood work; do not increase or decrease this dose on your own. - Upload screenshots of your most recent hospital lab results (potassium, magnesium, sodium, kidney function, CBC) to [employer] so they can be reviewed. - If your uploaded results aren t available or show persistent abnormalities, complete the additional labs already ordered by Ed Saxena. - After reviewing your labs, you will receive a [employer] message with next steps--this may include increasing Lexapro back to 40 mg or other recommendations. For those experiencing a suicidal crisis: --call the National Suicide Prevention Lifeline at 435 (789-748-9610) --text the Crisis Text Line (text HOME to 586455) --call 351 and let them know you are having a mental health crisis or go to your nearest Emergency Room for stabilization. --You can also call Mobile Crisis at [phone]. -- You may call the department appointment line at [phone] to schedule your appointment. -- Please call my nurse at [phone] or send me a message in [employer] with any questions or concerns between appointments. documented in this encounter [facility] 02-26-2025 History of Present illness Narrative Images from [...] visit. Either the patient or their legal paper sales representative has been informed of the risks and benefits of -- and alternatives to -- treatment through a remote evaluation and consents to proceed with the evaluation remotely. Recording using ambient [employer] Jungle software for draft documentation of the visit was discussed with the patient/authorized paper sales representative; all questions welcomed and answered. Patient/authorized paper sales representative agreed to proceed CC: Outpatient follow-up and safety monitoring of previously prescribed psychiatric medication, psychotherapy or other treatment HPI: Daly Estrella Lover is a 39-year-old female with a history of anxiety and depression, presenting for follow-up on medication management and recent hospitalization. Daly was recently hospitalized for four days due to severe hypokalemia and hypomagnesemia, which resulted in an inability to walk. She was discharged two days ago after receiving IV potassium and magnesium supplementation. She is currently taking oral potassium supplements and reports that her sodium levels were also low during hospitalization but have since improved. She reports a positive response to the recent increase in Lexapro dosage to 30 mg, noting improvements in mood and anxiety. She denies any GI side effects from the medication change. She is also taking Zyprexa and Coumadin, and denies any bleeding issues. Daly experiences difficulty falling asleep and wakes up multiple times during the night to use the bathroom, attributing this to her multiple surgeries. She denies any suicidal thoughts. She has been staying with her parents to facilitate her recovery and has filed for disability due to her medical conditions, including a foot amputation and short gut syndrome. She reports frequent bathroom use, which she states would interfere with any potential work, including remote work. Risks and benefits of the medication, including any black box warnings, were discussed with the patient. Interval Progress: Slightly improved PATIENT DATA: Generalized Anxiety Disorder Scale (ELIJAH-7) 01/21/2025 01/27/2025 02/23/2025 ELIJAH - 7 SCORES Score 11 12 16 16 (0-4) minimal anxiety, (5-9) mild anxiety, (10-14) moderate anxiety, (15-21) severe anxiety Patient Health Questionnaire (PHQ-9) 01/03/2025 01/10/2025 01/11/2025 PHQ-9 Score 14 14 14 14 14 (0-4) minimal depression, (5-9) mild depression, (10-14) moderate depression, (15-19) moderately severe depression, (20-27) severe depression PROMIS Global Health 07/31/2024 11/09/2024 01/21/2025 PROMIS Global Health - (T-Scores - the mean of general population = 50. Five points is a clinically meaningful difference.) Physical T-Score 37.4 32.4 32.4 Mental T-Score 28.4 33.8 28.4 PAST MEDICAL HISTORY Diagnosis Date Attempted suicide (HCC) polysubstance [facility] Gestational diabetes mellitus in ([facility]) Impaired fasting [...] mouth daily at bedtime. 30 tablet 1 Potassium Bicarb-Citric Acid (KLOR-CON/EF) 25 mEq disintegrating tablet Take 1 tablet by mouth two times a day. 60 tablet 2 warfarin (COUMADIN) 5 mg tablet Take half a tablets by mouth once daily. TAKE DIRECTED PENDING LAB RESULTS 60 tablet 0 escitalopram oxalate (LEXAPRO) 10 mg tablet Take 1 tablet by mouth once daily. Take with 20 mg dose. 30 tablet 1 escitalopram oxalate (LEXAPRO) 20 mg tablet Take 1 tablet by mouth once daily. Take with 10 mg dose. [address] (PROTONIX) 40 mg tablet Take 1 tablet by mouth two times a day before meals at 6 am and 4 pm. 60 tablet 1 No current facility-administered medications for this visit. ROS: See HPI PFSH: See HPI VITAL SIGNS: There were no vitals filed for this visit. MENTAL STATUS EXAM: Mental Status Exam General/Sensorium: Alert Orientation: AAOx3 Appearance: Appears stated age and casually dressed Eye contact: Appropriate Demeanor: Appropriately interactive Motor activity: Calm Speech: Articulate with appropriate rhythm and volume Mood: Euthymic Affect: Congruent with mood Thought process: Linear, logical, and goal-directed Associations: Normal Thought content: Discussing stressors, future goals or plans and focused on history, symptoms, and management Suicidal ideation: SI: no Plan: no Intent: no Homicidal ideation: HI: no Plan: no Intent: no Abnormal/psychotic thoughts: Absent Perceptions: She does not appear internally stimulated. Attention: Intact Memory: Short-term: Intact Long-term: Intact Language: Intact Fund of knowledge: Appropriate Insight: Improving Judgment: Improving DATA REVIEWED: Labs: Serum Electrolytes: - Potassium: Low - Magnesium: Low - Sodium: Low - Kidney function: Slowed Psychiatric scales, Labs, and Electronic medical record ASSESSMENT & PLAN: 1. 1. Anxiety about health (R45.89) 2. Bipolar II disorder (HCC) (F31.81) 3. ELIJAH (generalized anxiety disorder) (F41.1) - Lexapro increased to 30 mg daily at last visit; patient reports improvement in mood and anxiety without GI side effects. - No suicidal ideation reported. - Will consider increasing Lexapro back to 40 mg daily if recent labs are stable; patient to upload recent hospital lab results to [facility] for review. - Zyprexa refills sent. 4. Insomnia due to other mental disorder (F51.05) - Difficulty falling asleep and nocturia noted. 5. Encounter for long-term (current) use of medications (Z79.899) - Continues on Coumadin; no bleeding issues reported. 6. Psychosocial stressors (Z65.8) - Significant psychosocial stressors due to recent hospitalizations, disability, and ongoing health issues. - Patient staying with parents for support and has filed for disability. 7. Hyponatremia (E87.1) 8. Hypokalemia (E87.6) - Recent hospitalization for severe hypokalemia and hypomagnesemia; treated with IV supplementation. - Discharged on oral potassium supplements. - Recent sodium levels were low but improved prior to discharge. - Advised patient to upload recent hospital lab results to [employer] for review. - Will hold off on Lexapro dose increase until lab results are reviewed. Prescriptions given Patient denies any involuntary movement related side effects. Medical Decision Making: Problems: Moderate: 1+ chronic illnesses with change and 2+ stable chronic illnesses Risk: Moderate: Moderate risk from testing/treatment and Drug management Medical Decision Making Level: 4 - Moderate ADD ON PSYCHOTHERAPY CODE : No SIGNATURE: Clayton Granados APRN.CNP PATIENT NAME: Daly Evans DATE: February 26, 2025 TIME: 3:33 PM documented in this encounter [facility] 02-26-2025 History of Present illness Narrative [facility] SERVICE DATE: 02/26/2025 SERVICE TIME: 10:00am Additional Comments: Pt appears on [facility] Social Work Pro Report with a PHQ score of 11 and is positive for question 9 suggesting that Pt has thoughts of self-harm or that she would be better off . CHRISTY reviewed chart and notes that Pt has a virtual appointment with psychiatry seeing Clayton Granados APRN.CNP today at 3:00. SW will defer to psychiatry and copied the provider on this message. Deferred. SIGNATURE: MONIKA Mullins PATIENT NAME: Daly Evans DATE: February 26, 2025 TIME: 10:02 AM documented in this encounter [facility] 02-23-2025 Note [facility] 02-22-2025 Telephone encounter Note Study Title: IRB: 23-738 Caring for OutPatiEnts after Acute Kidney Injury (COPE-JONATAN) trial PI: Dr. Juan Manuel Byrd Date: 02/22/2025 Visit #: Week 9 post Index hospitalization I called the patient to follow up on her participation in the COPE-JONATAN study. Patient is currently hospitalized at [facility] Phone conversation and chart review completed for the following: Access patients data on Accu[employer] dashboard: last use of [employer] device N/A - device transmissions not received. Weight 172 lbs Blood pressure 112/71 per patient report as recorded in hospital Update Medical/Surgical History - reviewed and updated Assess for AE's - reviewed and updated - Current hospitalization for non-healing fracture reviewed as reportable event. Medical records update request pending. Concomitant Medications: reviewed for medication dispense record The patient verbally consents to continue in the research: yes Reconfirm patients understanding of the study in general: yes Data collected per protocol, including patient reported symptoms: []Shortness of breath []Edema/Swelling []Chest pain []Level of physical activity [x]Appetite and nutritional intake - reports stomach rumbling, but thinks she is "eating OK", [x]Voiding symptoms - urinary catheter removed on 02/21 - no pain or burning on void [x]Pain - currently 3/10; hips hurt from prolonged immobility following surgical intervention. Now able to weight bear [x]Anxiety/mood - normal baseline of anxiety and depression; denies any acute symptoms. Voices optimism re: potential discharge to home over the weekend [] Comments- in-patient monitoring of serum potassium and magnesium levels Education provided at this visit: Access patients data on Accuhealth dashboard: trouble shooting to be continued after discharge to home Assess for changes in physical, and/or environmental well-being yes Provide education about JONATAN discuss monitoring intake of water, salt and sugars in maintaining kidney health Discussed care recommendations: No Potential Problems/Barriers to Care identified:per patient [] Disease Management [] Health Insurance/Financial Concerns [] Transportation To and From Clinic [] Physical Needs [] Communication/Cultural Needs [x] Comments - no specific requests for assistance at this time Reminder re: Other Provider Follow-up appointments: [x] COPE Study Team at 3-months post-index hospitalization [x] PCP - 02/28/2025 at [facility] [] Other provider Next Nurse Navigator phone follow-up call due 03/08/2025 for the three month follow-up visit. Patient verbalized understanding. Amy Colvin [facility] February 22, 2025 3:20 PM Addendum created on 02/22/2025 for source document clarification. Amy Colvin [facility] February 22, 2025 4:35 PM [facility] 02-22-2025 Miscellaneous Notes Study Title: IRB: 23-738 Caring for OutPatiEnts after Acute Kidney Injury (COPE-JONATAN) trial PI: Dr. Juan Manuel Byrd Date: 02/22/2025 Visit #: Week 9 post Index hospitalization I called the patient to follow up on her participation in the COPE-JONATNA study. Patient is currently hospitalized at [facility] Phone conversation and chart review completed for the following: Access patients data on [employer] dashboard: last use of AccuHealth device N/A - device transmissions not received. Weight 172 lbs Blood pressure 112/71 per patient report as recorded in hospital Update Medical/Surgical History - reviewed and updated Assess for AE's - reviewed and updated - Current hospitalization for non-healing fracture reviewed as reportable event. Medical records update request pending. Concomitant Medications: reviewed for medication dispense record The patient verbally consents to continue in the research: yes Reconfirm patients understanding of the study in general: yes Data collected per protocol, including patient reported symptoms: []Shortness of breath []Edema/Swelling []Chest pain []Level of physical activity [x]Appetite and nutritional intake - reports stomach rumbling, but thinks she is "eating OK", [x]Voiding symptoms - urinary catheter removed on 02/21 - no pain or burning on void [x]Pain - currently 3/10; hips hurt from prolonged immobility following surgical intervention. Now able to weight bear [x]Anxiety/mood - normal baseline of anxiety and depression; denies any acute symptoms. Voices optimism re: potential discharge to home over the weekend [] Comments- in-patient monitoring of serum potassium and magnesium levels Education provided at this visit: Access patients data on [facility] dashboard: trouble shooting to be continued after discharge to home Assess for changes in physical, and/or environmental well-being yes Provide education about JONATAN discuss monitoring intake of water, salt and sugars in maintaining kidney health Discussed care recommendations: No Potential Problems/Barriers to Care identified:per patient [] Disease Management [] Health Insurance/Financial Concerns [] Transportation To and From Clinic [] Physical Needs [] Communication/Cultural Needs [x] Comments - no specific requests for assistance at this time Reminder re: Other Provider Follow-up appointments: [x] COPE Study Team at 3-months post-index hospitalization [x] PCP - 02/28/2025 at [facility] [] Other provider Next Nurse Navigator phone follow-up call due 03/08/2025 for the three month follow-up visit. Patient verbalized understanding. [facility] February 22, 2025 3:20 PM Addendum created on 02/22/2025 for source document clarification. Amy Izaguirreelroy February 22, 2025 4:35 PM documented in this encounter [facility] 02-11-2025 Telephone encounter Note Please see pt message and advise. Once complete, send to information below from pt and update via Quartics. Lauren Hull MA Pt message: I need a doctor's referral for a physical capacity assessment, for a disability claim. [facility] [place] ([phone]) or [facility] in [place] (fax [phone]). I greatly appreciate it. Daly" [facility] 02-11-2025 Miscellaneous Notes Please see pt message and advise. Once complete, send to information below from pt and update via Quartics. Lauren Hull MA Pt message: I need a doctor's referral for a physical capacity assessment, for a disability claim. I can go to [facility] in [place] ([phone]) or [facility] in [place] (fax [phone]). I greatly appreciate it. Daly" documented in this encounter [facility] 02-11-2025 Telephone encounter Note Turned into TE and routed to PCP to advise. Lauren Hull MA [facility] 02-11-2025 Miscellaneous Notes Turned into TE and routed to PCP to advise. Lauren Hull MA documented in this encounter [facility] 02-08-2025 Telephone encounter Note Study Title: IRB: 23-738 Caring for OutPatiEnts after Acute Kidney Injury (COPE-JONATAN) trial PI: Dr. Juan Manuel Byrd Date: 02/08/2025 Visit #: Week 7 post Index hospitalization I called the patient to follow up on her participation in the COPE-JONATAN study. msg left to return my call. Chart review completed for the following: Access patients data on [facility] dashboard:N/A - device use history not recorded [...] in 2-3 days, pending return call from [facility]. Amy Marii [facility] February 08, 2025 4:22 PM [facility] 02-08-2025 Miscellaneous Notes Study Title: IRB: 23-738 Caring for OutPatiEnts after Acute Kidney Injury (COPE-JONATAN) trial PI: Dr. Juan Manuel Byrd Date: 02/08/2025 Visit #: Week 7 post Index hospitalization I called the patient to follow up on her participation in the COPE-JONATAN study. msg left to return my call. Chart review completed for the following: Access patients data on [employer]:N/A - device use history not recorded Update [...] in 2-3 days, pending return call from [facility]. Amy Marii [facility] February 08, 2025 4:22 PM documented in this encounter [facility] 02-07-2025 Telephone encounter Note Prescription for Flagyl sent to local pharmacy. Sandra Castle PA-C [facility] 02-07-2025 Miscellaneous Notes Prescription for Flagyl sent [...] via my chart. documented in this encounter [facility] 02-07-2025 Telephone encounter Note I called Daly [...] for signature. Pt notified via my chart. [facility] 01-28-2025 Instructions Ed Saxena APRN.JUANY - 01/28/2025 2:35 PM EDT Get your labs on your way out today documented in this encounter [facility] 01-28-2025 History of Present illness Narrative This [...] suicide (HCC) polysubstance Bipolar depression (HCC) [facility] Gestational diabetes mellitus in [...] Never Tobacco comments: Pateint only uses the "Vape" She doesnt smoke nicotine Patient quit smoking [...] needing to have her picc line removed. 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 Labs being drawn today. Discussed treatment plan and patient voices understanding. Patient's questions answered appropriately. Medications and potential side effects were discussed and patient voices understanding. Return to the office as scheduled or as needed for worsening/no improvement. Ed Saxena APRN.MANUFACTURING MILLWRIGHT Recording using LightUp software for draft documentation of the visit was discussed with the patient/authorized paper sales representative; all questions welcomed and answered. Patient/authorized paper sales representative agreed to proceed documented in this encounter [facility] 01-28-2025 Telephone encounter Note Study Title: IRB: [...] Jigna Montalvo January 28, 2025 12:18 PM [facility] 01-28-2025 Miscellaneous Notes Study Title: IRB: 23-738 [...] 2025 12:18 PM documented in this encounter [facility] 07-31-2025 Telephone encounter Note Home Nutrition Support Service Dr. Elaine responded and said he agrees we should not manage patient again in the future if she were to require PN again. Routed letter to Dr. Montoya and Tabatha Jalloh for review and signature, to then be mailed via certified and regular mail alerting patient to this. Email [email or web address] alerting them of situation. Signoff orders and [...] given severe non-compliance - [facility] - PICC removal order faxed to infusion center. Infusion center will call patient to schedule removal - HNS episode closed Bisi Seo RD, LD, CNSC [facility] Work Phone: 01-24-2025 Miscellaneous Notes Home Nutrition Support Service Dr. Elaine responded and said he agrees we should not manage patient again in the future if she were to require PN again. Routed letter to Dr. Montoya and Tabatha Jalloh for review and signature, to then be mailed via certified and regular mail alerting patient to this. Email [email or web address] alerting them of situation. Signoff orders and [...] given severe non-compliance - Email sent to [facility] as ZACK on situation - PICC removal order faxed to infusion center. Infusion center will call patient to schedule removal - HNS episode closed Bisi Seo RD, LD, CNSC documented in this encounter [facility] 01-24-2025 Telephone encounter Note Called spoke with pt gave information provided. Pt voices understanding. [facility] 01-24-2025 Miscellaneous Notes Called spoke with pt gave information provided. Pt voices understanding. Images from the original note were not included. Ed Saxena APRN.MANUFACTURING MILLWRIGHT to [facility] [place] 01/24/25 8:59 AM Result Note [...] and went over results, notes from Ed Saxena HVAC SERVICE TECHNICIAN with understanding. documented in this encounter [facility] 01-24-2025 Telephone encounter Note Images from the original note were not included. Ed Saxena APRN.MANUFACTURING MILLWRIGHT to [facility] [place] 01/24/25 8:59 AM Result Note [...] and went over results, notes from Ed Saxena HVAC SERVICE TECHNICIAN with understanding. [facility] 01-23-2025 Telephone encounter Note Agree that we should not manage in the future. Very sad for her. Farzaneh Elaine MD January 23, 2025 [facility] Work Phone: 01-23-2025 Miscellaneous Notes Agree that we should not manage in the future. Very sad for her. Farzaneh Elaine MD January 23, 2025 Home Nutrition Support Service Received email from [facility] that patient is refusing delivery/all [...] non-compliance letter to patient and email to [facility] once confirmed with Dr. Montoya and Dr. Elaine that HNS would not manage in future if patient were to need PN given severe non-compliance and complete self-weaning of PN. Reccs: - Sign off orders sent to [facility] as patient self-weaned her PN completely and is refusing all PN deliveries - Order for PICC removal pended in [facility] and routed to Dr. Montoya for signature - Encounter routed to Dr. Montoya and Dr. Elaine to confirm that HNS would not manage in the future should patient need PN again given severe non-compliance and complete self-weaning of PN. Also routed to Transplant as an FYI/update on PN Bisi Seo RD, LD, CNSC documented in this encounter [facility] 01-23-2025 Telephone encounter Note Home Nutrition Support Service Received email from [facility] that patient is refusing delivery/all [...] non-compliance letter to patient and email to [facility] once confirmed with Dr. Montoya and Dr. Elaine that HNS would not manage in future if patient were to need PN given severe non-compliance and complete self-weaning of PN. Reccs: - Sign off orders sent to [facility] as patient self-weaned her PN completely and is refusing all PN deliveries - Order for PICC removal pended in [facility] and routed to Dr. Montoya for signature - Encounter routed to Dr. Montoya and Dr. Elaine to confirm that [facility] would not manage in the future should patient need PN again given severe non-compliance and complete self-weaning of PN. Also routed to Transplant as an FYI/update on PN Bisi Seo RD, LD, CNSC [facility] Work Phone: 01-17-2025 Telephone encounter Note Home [...] weight. She states she has already began "self-weaning" PN because she claims Dr. Devine told her to. She said she has been infusing every other day "recently" even though PN is ordered 7 days per week. She also states she has been taking her 40 mEq K+ oral supplements "daily". I explained that it is not safe [...] case given K+ was 2.[address], LD, CNSC [facility] Work Phone: 01-17-2025 Miscellaneous Notes Home Nutrition [...] weight. She states she has already began "self-weaning" PN because she claims Dr. Devine told her to. She said she has been infusing every other day "recently" even though PN is ordered 7 days per week. She also states she has been taking her 40 mEq K+ oral supplements "daily". I explained that it is not safe [...] Dr. Devine that she needs to discontinue. [phone] documented in this encounter [facility] 01-17-2025 Telephone encounter Note Pt called to discuss weaning TPN. Has been told by Dr. Devine that she needs to discontinue. [phone] [facility] 01-14-2025 Telephone encounter Note Call placed to Daly about her lab work and inquiring if she picked up the lovenox and warfarin and if anyone followed up with her on the labs. She stated no, she did vegetable picker the warfarin and started that on Tuesday. She said all the pharmacies were out of lovenox injections. Ordered an INR and told her to get it drawn tomorrow. Ed Saxena APRN.JUANY [facility] 01-14-2025 Miscellaneous Notes Call placed to Daly about her lab work and inquiring if she picked up the lovenox and warfarin and if anyone followed up with her on the labs. She stated no, she did vegetable picker the warfarin and started that on Tuesday. She said all the pharmacies were out of lovenox injections. Ordered an INR and told her to get it drawn tomorrow. Ed Saxena APRN.CNP documented in this encounter [facility] 01-11-2025 Instructions Clayton Granados APRN.CNP - 01/11/2025 4:32 PM EDT We discussed your anxiety and mental health: - You are experiencing intrusive thoughts, primarily about your health and the future, as well as some panic attacks. - To help manage your anxiety, we will gradually increase your Lexapro dose: - Start taking 30 mg daily (20 mg + 10 mg). This prescription has been sent to your [facility] pharmacy in [place]. - If you experience any gastrointestinal side [...] --call the National Suicide Prevention Lifeline at 599 (457-360-3283) --text the Crisis Text Line (text HOME to 511147) --call 911 and let them know you are having a mental health crisis or go to your nearest Emergency Room for stabilization. --You can also call Mobile Crisis at [phone]. -- You may call the department appointment line at [phone] to schedule your appointment. -- Please call my nurse at [phone] or send me a message in J[employer] with any questions or concerns between appointments. documented in this encounter [facility] 01-11-2025 History of Present illness Narrative Images [...] visit. Either the patient or their legal paper sales representative has been informed of the risks and benefits of -- and alternatives to -- treatment through a remote evaluation and consents to proceed with the evaluation remotely. Recording using LightUp software for draft documentation of the visit was discussed with the patient/authorized paper sales representative; all questions welcomed and answered. Patient/authorized paper sales representative agreed to proceed CC: Outpatient follow-up [...] 20 mg during her hospital stay at [facility], reportedly due to concerns about gut absorption related to her bowel obstruction. She denies any side effects from the 40 mg dosage and requests to return to it, citing increased anxiety. Her anxiety manifests primarily as intrusive thoughts, particularly about her health and future, which occur continuously throughout the day and night. These thoughts often begin with "what if" scenarios and are more intrusive than the [...] TIME: 3:12 PM documented in this encounter [facility] 01-10-2025 Instructions Ed Saxena APRN.CNP - 01/10/2025 2:51 PM EDT Do [...] in next week documented in this encounter [facility] 01-10-2025 History of Present illness Narrative This [...] during stay in November Staple Removal: - Maurice and sutures in place from recent abdominal [...] suicide (HCC) polysubstance Bipolar depression (HCC) [facility] Gestational diabetes mellitus in [...] Never Tobacco comments: Pateint only uses the "Vape" She doesnt smoke nicotine Patient quit smoking [...] which included preparing to see the patient, [id number] patient care, obtaining and/or reviewing separately obtained [...] or as needed for worsening/no improvement. Ed Saxena APRN.MANUFACTURING MILLWRIGHT Recording using LightUp software for draft documentation of the visit was discussed with the patient/authorized paper sales representative; all questions welcomed and answered. Patient/authorized paper sales representative agreed to proceed documented in this encounter [facility] 01-10-2025 Telephone encounter Note Home Nutrition Support [...] week to include CRP Mayra Alexandre RD [facility] 01-10-2025 Miscellaneous Notes Home Nutrition Support Service [...] follow up. ED visit not seen in [facility] though may have gone to local ED not viewable in [facility]/Care everywhere. No answer, LVM. Rec: await return [...] to the ED for repletion. Noted that [facility] has not been able to get ahold of patient since discharge, and these labs are overdue from 12/31. Discussed this w/ patient and she agreed to call [facility] back tomorrow so we can discuss overall plan/ New Patient Week 1. Recs: - Await ED outcome Mayra Alexandre RD documented in this encounter [facility] 01-10-2025 Telephone encounter Note Home Nutrition Support Service Call to pt to follow up. ED visit not seen in [facility] though may have gone to local ED not viewable in [facility]/Care everywhere. No answer, LVM. Rec: await return call Satish Haider RD, LD, CNSC [facility] Work Phone: 01-09-2025 Telephone encounter Note Study Title: IRB: 23-738 Caring for OutPatiEnts after Acute Kidney Injury (COPE-JONATAN) trial PI: Dr. Juan Manuel Byrd Date: 01/09/2025 Visit #: Week 3 post Index hospitalization I called the patient to follow up on her participation in the COPE-JONATAN study. Phone conversation and chart review completed for the following: Access patients data on [employer] dashboard: N/A -[employer] devices not in use. [...] [x]Appetite and nutritional intake - reports as "OK" []Voiding symptoms []Pain []Anxiety/mood [x] Comments - [...] Provider Follow-up appointments: [x] COPE Study Team, [facility] follow-up due between 01/13 - 01/27/2025 [] PCP [] Other provider Next Nurse Navigator phone follow-up call due at 5-weeks post-hospital discharge, on or before 01/25/2025. Patient verbalized understanding. Amy Colvin [facility] January 09, 2025 11:16 AM [facility] 01-09-2025 Miscellaneous Notes Study Title: IRB: 23-738 Caring for OutPatiEnts after Acute Kidney Injury (COPE-JONATAN) trial PI: Dr. Juan Manuel Byrd Date: 01/09/2025 Visit #: Week 3 post Index hospitalization I called the patient to follow up on her participation in the COPE-JONATAN study. Phone conversation and chart review completed for the following: Access patients data on [employer] dashboard: N/A -[employer] devices not in use. [...] [x]Appetite and nutritional intake - reports as "OK" []Voiding symptoms []Pain []Anxiety/mood [x] Comments - [...] Provider Follow-up appointments: [x] COPE Study Team, [facility] follow-up due between 01/13 - 01/27/2025 [] PCP [] Other provider Next Nurse Navigator phone follow-up call due at 5-weeks post-hospital discharge, on or before 01/25/2025. Patient verbalized understanding. [facility] January 09, 2025 11:16 AM documented in this encounter [facility] 01-08-2025 Telephone encounter Note Home Nutrition Support [...] to the ED for repletion. Noted that [facility] has not been able to get ahold of patient since discharge, and these labs are overdue from 12/31. Discussed this w/ patient and she agreed to call [facility] back tomorrow so we can discuss overall plan/ New Patient Week 1. Recs: - Await ED outcome Myara Alexandre RD [facility] 01-07-2025 Telephone encounter Note Record ID: [id number] Patient name: Daly Evans Date: January 07, [...] enter your date of in MM/DD/YYYY format:(e.g., "07/15/1971" for Jul 15, 1971) -> 1985 Thank [...] was moved to different rooms five times [facility] 01-07-2025 Miscellaneous Notes Record ID: [id number] Patient name: Daly Evans Date: January 07, [...] enter your date of in MM/DD/YYYY format:(e.g., "07/15/1971" for Jul 15, 1971) -> 1985 Thank [...] rooms five times documented in this encounter [facility] 01-04-2025 Telephone encounter Note Unable To Reach Patient Patient's name appears on the [facility] report for a PHQ-9 score of 14 and +9. Second attempt:SW called Patient to follow up and left a VM requesting a call back. MONIKA Dhillon [facility] 01-04-2025 Miscellaneous Notes Unable To Reach Patient Patient's name appears on the [facility] report for a PHQ-9 score of 14 and +9. Second attempt:SW called Patient to follow up and left a VM requesting a call back. MONIKA Dhillon documented in this encounter [facility] 01-03-2025 Telephone encounter Note Unable To Reach Patient Patient's name appears on the [facility] report for a PHQ-9 score of 14 and +9. SW called Patient to follow up and left a VM requesting a call back. [employer] SEVERITY RATING SCALE Unable to reach Patient to assess. MONIKA Dhillon [facility] 01-03-2025 Miscellaneous Notes Unable To Reach Patient Patient's name appears on the [facility] report for a PHQ-9 score of 14 and +9. SW called Patient to follow up and left a VM requesting a call back. [employer] SEVERITY RATING SCALE Unable to reach Patient to assess. MONIKA Dhillon documented in this encounter [facility] 01-02-2025 Telephone encounter Note Transitional Care Management (TCM) [facility] Monitoring Program Provider Action / FYI: N/a SUMMARY: Outreach type: INITIAL OUTREACH Discharge Network Status: In-Network Discharge Source of Patient: [facility] TCM Discharge Report Patient discharged from [facility] on 12/21/2024. Admitted for Lactic acidosis. Contact made with patient: No, for Follow-up - end outreach and close encounter. Polly Blanton January 02, 2025 2:24 PM [facility] 01-02-2025 Miscellaneous Notes Transitional Care Management (TCM) [facility] Monitoring Program Provider Action / FYI: N/a SUMMARY: Outreach type: INITIAL OUTREACH Discharge Network Status: In-Network Discharge Source of Patient: [facility] TCM Discharge Report Patient discharged from [facility] on 12/21/2024. Admitted for Lactic acidosis. Contact made with patient: No, for Follow-up - end outreach and close encounter. Polly Blanton January 02, 2025 2:24 PM documented in this encounter [facility] 01-02-2025 Telephone encounter Note Study Title: IRB: [...] Jigna Montalvo January 02, 2025 11:04 AM [facility] 01-02-2025 Miscellaneous Notes Study Title: IRB: [id number] [...] 2025 11:04 AM documented in this encounter [facility] 01-01-2025 Telephone encounter Note Transitional Care Management (TCM) [facility] Monitoring Program Provider Action / FYI: na SUMMARY: Outreach type: INITIAL OUTREACH Discharge Network Status: In-Network Discharge Source of Patient: [facility] TCM Discharge Report Patient discharged from [facility] on 12.21.24. Admitted for Lactic acidosis. . Contact made with patient: No - 2nd unsuccessful attempt - end outreach and close encounter. Sean De La Fuente January 01, 2025 10:37 AM [facility] 01-01-2025 Miscellaneous Notes Transitional Care Management (TCM) [facility] Monitoring Program Provider Action / FYI: na SUMMARY: Outreach type: INITIAL OUTREACH Discharge Network Status: In-Network Discharge Source of Patient: [facility] TCM Discharge Report Patient discharged from [facility] on 12.21.24. Admitted for Lactic acidosis. . Contact made with patient: No - 2nd unsuccessful attempt - end outreach and close encounter. Sean De La Fuente January 01, 2025 10:37 AM documented in this encounter [facility] 12-31-2024 History of Present illness Narrative Images from the original note were not included. [facility] Follow Up [...] a 39 year old single female from [place], [place] ([address], supportive father) with a history of bipolar disorder, severe panic attacks, polysubstance abuse (EtOH, marijuana - sober since at least Apr 2024), violent behavior under influence of EtOH (September 2021), smoking (quit Jul 2024), (2012), preDM, and lap maryellen (2018). She was transferred to [facility] 08/20/24 with a mural thrombus in the [...] DC to SNF 09/03/24 and referred to [facility] Medical and Surgical Teams for STEP + Gattex. 10/09/24 OSH Admission for accidental overdose of Methadone at SNF. 10/19/24 OSH Admission for high output stoma. Cdiff negative. Stool for GI panel in process. Remains off TPN. Electrolyte repletion underway. Initial JONATAN Cr >2 has resolved. High stoma output, but it is not measured at the group home. 11/18-11/05/24 OSH Admission for high output stoma [...] output stoma and dehydration Presented to the [facility] emergency room with concerns for dehydration and [...] Partial Omentectom. She was transferred back to [facility]: on CALCULUS TEACHER, with NG tube, with pathak, on continued [...] 4.8 mg/dL Final No components found for: "FK-506" No results found for: "PHOS" No components found for: BLOODCULTURE ROS: Eyes: [...] and examined with Dr. Kirit Devine MD [facility] STAFF PHYSICIAN NOTE OF PERSONAL INVOLVEMENT [...] lagos components of the note. PHYSICAL EXAM: [facility] 08/29/2024 General appearance: well appearing, [...] Corrine CARBAJAL 12/26/2024 documented in this encounter [facility] 12-31-2024 Note [facility] 12-25-2024 Telephone encounter Note Study Title: [...] call. Discussed care recommendations: Next appointment scheduled: [facility] 12-25-2024 Miscellaneous Notes Study Title: Caring for OutPatiEnts after Acute Kidney Injury (COPE-JONATAN) Trial. IRB: [id number] PI: Dr. yBrd Date:12/25/2024 Visit: (2-3) days post hospital discharge [...] Next appointment scheduled: documented in this encounter [facility] 12-25-2024 Telephone encounter Note [facility] Provider Action / FYI: N/A SUMMARY: Outreach type: INITIAL OUTREACH Discharge Network Status: In-Network Discharge Source of Patient: [facility] TCM Discharge Report Patient discharged from [facility] on 12/21/24. Admitted for Lactic acidosis. Contact made with patient: No - next outreach attempt will be on next . Suman Guevara RN December 25, 2024 2:27 PM [facility] 07-01-2025 Miscellaneous Notes Transitional Care Management (TCM) [facility] Monitoring Program Provider Action / FYI: N/A SUMMARY: Outreach type: INITIAL OUTREACH Discharge Network Status: In-Network Discharge Source of Patient: [facility] TCM Discharge Report Patient discharged from [facility] on 12/21/24. Admitted for Lactic acidosis. Contact made with patient: No - next outreach attempt will be on next . Suman Guevara RN December 25, 2024 2:27 PM documented in this encounter [facility] 12-25-2024 Telephone encounter Note Pt was discharged [...] on Sunday 12/31. Dr. Devine was updated. [facility] 12-25-2024 Miscellaneous Notes Pt was discharged 12/21 [...] Devine was updated. documented in this encounter [facility] 12-25-2024 History of Present illness Narrative COPE-JONATAN STUDY PATIENT PHARMACIST CONTACT Study Title: Caring for OutPatiEnts aftr Acute Kidney Injury (COPE-JONATAN) Trial IRB:[id number] PI: Dr. Byrd Visit Type: Initial Provider Action/FYI SBAR Communication with Provider Situation Pharmacist visit encounter completed as part of patient's participation in the Caring for OutPatiEnts after Acute Kidney Injury" (COPE-JONATAN) randomized trial. Background Patient was hospitalized [...] -Discharge date: 12/21/24 -Date of [facility] assessment/communication: 12/25/24 -Disposition of the patient at time of assessment? Home -Review study tube buffer (B-38) and nurse navigator (B-41) documentation if [...] Height as of 12/10/24: 170.2 cm (5' 7.01"). Weight as of 12/20/24: 91.9 kg (202 [...] When in the Hospital: Presented to the [facility] emergency room with concerns for dehydration and increased liquid output from her ostomy in the setting of short bowel syndrome. 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 She was admitted to [facility] [...] Partial Omentectom. She was transferred back to [facility]: on CALCULUS TEACHER, with NG tube, with pathak, on continued [...] with recent fill hx PER MARCELO carpio "team not yet ready for therapeutic lovenox, ok to uptitrate to lovenox 60 mg every 12 hrs dc planned for today recommend dc on lovenox 60 mg every 12 hr and then when pt sees PCP on 12/31 could uptitrate to therapeutic lovenox 90 mg every 12 hrs and begin bridging to warfarin [facility] has coumadin clinic but only takes referral from [facility] staff." escitalopram oxalate (LEXAPRO) 20 mg tablet Take [...] 2024 9:10 AM documented in this encounter [facility] 12-25-2024 Note [facility] 12-21-2024 Note [facility] 12-21-2024 Note [facility] 12-21-2024 Note [facility] 12-21-2024 History of Present illness Narrative [facility] Patient education Checklist. Patient Name: Daly Evans MR# [id number] Date: December 21, 2024 10:17 am Performance [...] Infusion Pharmacy Nurse documented in this encounter [facility] 12-21-2024 Note [facility] 12-20-2024 Note [facility] 12-20-2024 Note [facility] 12-20-2024 Note [facility] 12-20-2024 History of Present illness Narrative Study Title: Caring for OutPatiEnts aftr Acute Kidney Injury (COPE-JONATAN) Trial IRB:[id number] PI: Dr. Byrd Date: 12/20/2024 Visit: Pre Hospital Discharge Has study tube buffer completed their assessment/guidance for post management: Pending B-38 Nurse navigator reviewed the plan of management with the study tube buffer to determine: *Follow-up with clinical tube buffer: pending *Follow-up with PCP: Yes-scheduled *What are the targets for BP and volume (weight) management: -BP: 130/80 -Weight: Baseline -Specific management issues study tube buffer is concerned about: Pending B-38 Informed the patient of Nurse Navigator Role and Provided NN contact information: Yes Collection of medical care team contacts: PCP: cosme Boland DO Non study Physician: podiatry - Linda Duval DO and [facility] - Albina Mejia Pharmacy: Study pharmacist Preferred method of communication: Video call NoPhone call: Yes Educational written materials provided: Yes [facility] downloaded & equipment supplied: Yes Patient received training on equipment: Yes Device serial number scale: [id number] Device serial number BP device: [id number] C-24 Labs Collected: blood: No urine: No Contact PCP: pending Next appointment scheduled: 2-3 day visit. Jigna Montalvo December 25, 2024 11:13 AM documented in this encounter [facility] 12-19-2024 Note [facility] 12-19-2024 Note [facility] 12-18-2024 Note [facility] 12-18-2024 Note [facility] 12-17-2024 Note [facility] 12-17-2024 Note [facility] 12-16-2024 Note [facility] 12-16-2024 Note [facility] 12-15-2024 Note [facility] 12-15-2024 Note [facility] 12-14-2024 Note [facility] 12-14-2024 Note [facility] 12-13-2024 Note [facility] 12-13-2024 Telephone encounter Note Message given to Sandra Castle PA-c, inpatient team. [facility] 12-13-2024 Miscellaneous Notes Message given to Sandra Castle PA-c, inpatient team. Ernst called concerning the status of the pt's surgery. Requesting a return call from the search coordinator. Please call Ernst at [phone]. Twila Vargas documented in this encounter [facility] 12-13-2024 Telephone encounter Note Ernst called concerning the status of the pt's surgery. Requesting a return call from the search coordinator. Please call Ernst at [phone]. Twila Vargas [facility] 12-13-2024 Note [facility] 12-12-2024 Note [facility] 12-12-2024 Note [facility] 12-12-2024 Note [facility] 12-12-2024 Note [facility] 12-11-2024 Note [facility] 12-10-2024 Note [facility] 12-09-2024 Note [facility] 12-09-2024 Note [facility] 12-08-2024 Note [facility] 12-07-2024 Note [facility] 12-07-2024 Note [facility] 12-07-2024 Note [facility] 12-06-2024 Note [facility] 12-06-2024 Note [facility] 12-05-2024 Note [facility] 11-28-2024 Telephone encounter Note I called [...] to the ED as we discussed yesterday. [facility] 11-28-2024 Miscellaneous Notes I called Ernst back [...] requesting that Libia calls him back at [phone]. Ernst says that Daly is in the emergency room because she is having issues with her ostomy bag. Ernst says that Daly is sweating, dizzy, and in pain. documented in this encounter [facility] 11-28-2024 Telephone encounter Note Ernst (father) called in requesting that Libia calls him back at [phone]. Ernst says that Daly is in the emergency room because she is having issues with her ostomy bag. Ernst says that Daly is sweating, dizzy, and in pain. [facility] Work Phone: 11-27-2024 Telephone encounter Note I returned Daly's call. She was hospitalized again a few days ago. She was given IVF and electrolytes, and then discharged. She has had multiple local hospital admissions for dehydration, high stoma output, and electrolyte imbalance. She has not yet been evaluated by our team, and has decided to come to [facility] ED tomorrow for evaluation and possible admission to the medicine service for stabilization. I told her that I will inform Dr. Devine. I did reach out to Dr. Devine and shared the above. [facility] 11-27-2024 Miscellaneous Notes I returned Daly's call. She was hospitalized again a few days ago. She was given IVF and electrolytes, and then discharged. She has had multiple local hospital admissions for dehydration, high stoma output, and electrolyte imbalance. She has not yet been evaluated by our team, and has decided to come to [facility] ED tomorrow for evaluation and possible admission to the medicine service for stabilization. I told her that I will inform Dr. Devine. I did reach out to Dr. Devine and shared the above. The patient requests a call from Libia.. Gretchen Navarrete documented in this encounter [facility] 11-27-2024 Telephone encounter Note The patient requests a call from Libia.. Gretchen Navarrete [facility] 11-23-2024 Note [facility] 11-16-2024 Note [facility] 11-14-2024 Note [facility] 11-12-2024 Telephone encounter Note I called patient and left a voicemail for her and her father and explained that she should come to the [facility] ED if she is having N, V, high output, or dehydration so that we can evaluate her here and determine what is needed for optimization for surgery. I also explained that the physicians and the hospital she is evaluated at can request transfer to [facility]. [facility] 11-12-2024 Miscellaneous Notes I called patient and left a voicemail for her and her father and explained that she should come to the [facility] ED if she is having N, [...] back to reschedule documented in this encounter [facility] 11-12-2024 Telephone encounter Note Patient called in to cancel today's appointment because she going to the Emergency room now and she will call back to reschedule [facility] 11-06-2024 Telephone encounter Note Transitional Care Management (TCM) [facility] Monitoring Program Provider Action / FYI: na SUMMARY: Outreach type: INITIAL OUTREACH Discharge Network Status: In-Network Discharge Source of Patient: [facility] TCM Discharge Report Patient discharged from [facility] on 10.26.24. Admitted for Intractable diarrhea . Contact made with patient: No - next outreach attempt will be on next business day. Rico Minor November 06, 2024 4:23 PM [facility] 11-06-2024 Miscellaneous Notes Transitional Care Management (TCM) [facility] Monitoring [facility] Provider Action / FYI: na SUMMARY: Outreach type: INITIAL OUTREACH Discharge Network Status: In-Network Discharge Source of Patient: [facility] TCM Discharge Report Patient discharged from [facility] on 10.26.24. Admitted for Intractable diarrhea . Contact made with patient: No - next outreach attempt will be on next business day. Rico Minor November 06, 2024 4:23 PM documented in this encounter [facility] 11-05-2024 Telephone encounter Note I called Daly and she was disharged from [facility] last week 10/30 to 11/05/24 for [...] TPN management CT chest w IV con [facility] 11-05-2024 Miscellaneous Notes I called Daly and she was disharged from [facility] last week 10/30 to 11/05/24 for [...] for this request documented in this encounter [facility] 11-05-2024 Telephone encounter Note Patient called in requesting an appointment with Dr. Devine can an order be put in for this request [facility] 11-05-2024 Note [facility] 10-30-2024 Telephone encounter Note Record ID: [id number] Patient name: Daly Evans Date: October 30, [...] enter your date of in MM/DD/YYYY format:(e.g., "07/15/1971" for Jul 15, 1971) -> 1985 Thank you for verifying your information. I'd like to ask you a few questions about how your recovery is going. Since leaving the hospital, do you have any new or worsening symptoms? -> Yes And how have these symptoms changed since you first noticed them? -> Same [facility] 10-30-2024 Miscellaneous Notes Record ID: [id number] Patient name: Daly Evans Date: October 30, [...] enter your date of in MM/DD/YYYY format:(e.g., "07/15/1971" for Jul 15, 1971) -> 1985 Thank you for verifying your information. I'd like to ask you a few questions about how your recovery is going. Since leaving the hospital, do you have any new or worsening symptoms? -> Yes And how have these symptoms changed since you first noticed them? -> Same documented in this encounter [facility] 10-26-2024 History of Present illness Narrative Daly [...] attend because she is currently admitted to [facility] for diarrhea exacerbation associated with JONATAN, hyponatremia, and hypokalemia. She will be rescheduled. Daly Evans 10/26/2024 documented in this encounter [facility] 10-26-2024 Note HNO ID: [id number] Author: MORENA PALACIOS LSW Service: Care Management Author Type: Radiation Therapist Type: Care Mgt Progress Note Filed: 10/26/2024 12:47 Note Text: CARE MANAGEMENT PROGRESS NOTE SERVICE DATE: 10/26/2024 SERVICE TIME: 12:41 PM LOS: 7 days Chart reviewed. Pt admitted from [facility] for intractable diarrhea. She has an [...] her own ostomy but just needs supplies. CHRISTY sent referral to [facility]; they confirmed they will set pt up with supplies; Bedside RN will send home extra supplies. Phone number for [facility] placed on dc summary. Pt will discharge to her parents home at: [address] [place], [place]. CHRISTY let Cornelius know this. SIGNATURE: CHANELL Stewart PATIENT NAME: Daly Evans DATE: October 26, 2024 TIME: 12:41 PM [facility] 10-25-2024 Note HNO ID: [id number] Author: WILLIS FINCH DO Service: Hospital Medicine Author Type: Physician Type: Progress Notes Filed: 10/25/2024 11:39 Note Text: PROGRESS NOTE SERVICE DATE: 10/25/2024 SERVICE TIME: 11:38 AM PRIMARY SERVICE: Internal Medicine CHIEF COMPLAINT: Diarrhea INTERVAL HPI: Patient seen and examined, discussed with house staff and RN. No significant overnight issues. BP 98/64 Pulse 98 Temp (Src) 98.3 (Oral) Resp 18 Ht 5' 7" (1.70m) Wt 190 lb 7.6 oz (86.4kg) [...] resection with ostomy [facility] due to high output ostomy She had evidence of renal failure as well as multiple electrolyte abnormalities (see below) Gastroenterology is following C. diff negative Stool PCR negative Continue scheduled Imodium 4 mg TID Acute kidney injury Creatinine 2.8 in [facility] ED Likely secondary to GI losses Creatinine now normalized Hyponatremia Sodium 130 in [facility] Likely secondary to GI losses Sodium now 135 today Hypokalemia Potassium 3.3 in [facility] Likely secondary to GI losses Still 3.4 today Will again supplement Left foot discoloration, ?gangrene Left toes are black, per patient this began while she was at [facility] Chart review indicates she had bilateral lower extremity tibial thromboemboli and underwent thromboembolectomy of the anterior tibial, posterior tibial, and peroneal arteries Podiatry following X-rays obtained on 10/23 showed no evidence of osteomyelitis I spoke with Dr. Mccarthy yesterday, he has no immediate plans for surgical intervention th (more content not included)... [facility] 10-24-2024 Note HNO ID: [id number] Author: WILLIS FINCH DO Service: Hospital Medicine Author Type: Physician Type: Progress Notes Filed: 10/24/2024 16:53 Note Text: PROGRESS NOTE SERVICE DATE: 10/24/2024 SERVICE TIME: 4:50 PM PRIMARY SERVICE: Internal Medicine CHIEF COMPLAINT: Diarrhea INTERVAL HPI: Patient seen and examined, discussed with house staff and RN. Bedside nurse patient has been tachycardic when ambulating. BP 103/62 Pulse 112 Temp (Src) 98.7 (Oral) Resp 18 Ht 5' 7" (1.70m) Wt 190 lb 7.6 oz (86.4kg) [...] resection with ostomy [facility] due to high output ostomy She had evidence of renal failure as well as multiple electrolyte abnormalities (see below) Gastroenterology is following C. diff negative Stool PCR negative Continue scheduled Imodium 4 mg TID Acute kidney injury Creatinine 2.8 in [facility] Likely secondary to GI losses Creatinine now normalized Hyponatremia Sodium 130 in [facility] Likely secondary to GI losses Sodium now 133 today Hypokalemia Potassium 3.3 in [facility] Likely secondary to GI losses Still 3.4 today Will again supplement Left foot discoloration, ?gangrene Left toes are black, per patient this began while she was at [facility] Chart review indicates she had bilateral lower extremity tibial thromboemboli and underwent thromboembolectomy of the anterior tibial, posterior tibial, and peroneal arteries Podiatry following X-rays obtained yesterday showed no evidence of osteomyelitis I spoke with Dr. Mccarthy today, he has no immediate (more content not included)... [facility] 10-24-2024 Note HNO ID: [id number] Author: MORENA PALACIOS LSW Service: Care Management Author Type: Radiation Therapist Type: Care Mgt Progress Note Filed: 10/24/2024 12:21 Note Text: CARE MANAGEMENT PROGRESS NOTE SERVICE DATE: 10/24/2024 SERVICE TIME: 9:36 AM LOS: 5 days Chart reviewed. Pt admitted from [facility] for intractable diarrhea; she has an ostomy. GI consulted for high ostomy output, they signed off yesterday 10/23. Podiatry consulted for left foot discoloration/gangrene. DC plan is to return to [facility] for wound care; precert started today. Post acute checklist on chart, will need wheelchair transport. SIGNATURE: CHANELL Stewart PATIENT NAME: Daly Evans DATE: October 24, 2024 TIME: 9:36 AM [facility] 10-23-2024 Note HNO ID: [id number] Author: WILLIS FINCH DO Service: Hospital Medicine Author Type: Physician [...] (Src) 98.2 (Oral) Resp 16 Ht 5' 7" (1.70m) Wt 190 lb 7.6 oz (86.4kg) [...] resection with ostomy Patient [facility] an [facility] due to high output ostomy She had evidence of renal failure as well as multiple electrolyte abnormalities (see below) Gastroenterology is following C. diff negative Stool PCR negative Continue scheduled Imodium, increase today to 4 mg TID Acute kidney injury Creatinine 2.8 in community [facility] ED Likely secondary to GI losses Creatinine now normalized Hyponatremia Sodium 130 in community [facility] ED Likely secondary to GI losses Sodium now 133 today Hypokalemia Potassium 3.3 in community [facility] ED Likely secondary to GI losses Still 3.4 today Will again supplement Left foot discoloration, ?gangrene Left toes are black, per patient this began while she was at [facility] Chart review indicates she had bilateral lower extremity tibial thromboemboli and underwent thromboembolectomy of the anterior tibial, posterior tibial, and peroneal arteries Continue therapeutic Lovenox Podiatry now following X-rays obtained today showed no evidence of osteomyelitis Continue local wound care Chronic comorbidities Bipolar disorder Anxiety Hx of substance abuse SIGNATURE: Willis Finch, (more content not included)... [facility] 10-23-2024 Note HNO ID: [id number] Author: YOHANA MCCARTHY III, DPM Service: Podiatry Author Type: Physician Type: Progress Notes Filed: 10/23/2024 17:49 Note Text: Podiatry Progress Note: X-rays reviewed. No signs of fracture or osteomyelitis or soft tissue gas. Gangrene is dry and stable. Continue wound care. Will follow as outpatient. Yohana Mccarthy III, DPM FACFAS 5:48 PM [facility] 10-22-2024 Note HNO ID: [id number] Author: WILLIS FINCH DO Service: Hospital Medicine Author Type: Physician [...] (Src) 98.4 (Oral) Resp 18 Ht 5' 7" (1.70m) Wt 192 lb 7.4 oz (87.3kg) [...] resection with ostomy Patient sent to an [facility] ED due to high output ostomy She had evidence of renal failure as well as multiple electrolyte abnormalities (see below) Gastroenterology is following C. diff negative Stool PCR negative Scheduled Imodium started today (2 mg QID) Acute kidney injury Creatinine 2.8 in [facility] ED Likely secondary to GI losses Creatinine now normalized Will stop IV fluids Hyponatremia Sodium 130 in [facility] ED Likely secondary to GI losses Sodium now 136 today Stopping IV fluids Hypokalemia Potassium 3.3 in [facility] ED Likely secondary to GI losses Still 3.2 today Will again supplement Left foot discoloration, ?gangrene Left toes are black, per patient this began while she was at [facility] Chart review indicates she had bilateral lower extremity tibial thromboemboli and underwent thromboembolectomy of the anterior tibial, posterior tibial, and peroneal arteries Continue ther (more content not included)... [facility] 10-22-2024 Note HNO ID: [id number] Author: WILLIS FINCH DO Service: Hospital Medicine Author Type: Physician Type: Progress Notes Filed: 10/22/2024 15:27 Note Text: Documentation Query Please clarify the diagnosis associated with the clinical indicators for this patient Provider Response: Hypokalemia supported by: Oral Supplement of Potassium chloride and IV Infusion of Potassium chloride This document will become part of the patient's medical record. [facility] 10-22-2024 Note HNO ID: [id number] Author: MORENA PALACIOS LSW Service: Care Management Author Type: Radiation Therapist Type: Care Mgt Initial Assessment Filed: 10/22/2024 12:51 Note Text: CARE MANAGEMENT: ASSESSMENT AND DISCHARGE PLAN SERVICE DATE: October 22, 2024 SERVICE TIME: 12:43 PM PCP: Cosme Boland DO Primary Contact: Extended Emergency Contact Information Primary Emergency Contact: Ernst Evans Mobile Relation: Father Secondary Emergency Contact: Mary Evans [facility] Relation: Mother Admission Status: Inpatient Insurance Provider: CARLA MUÑOZ MEDICAID Discharge Planning requested by: Potential Transition Plans Advance Directives Current Living Arrangements and Support Lives with: Type of Residence: Support: Current Services/Equipment Discharge Planning Patient Goal(s): [place] Explained: Are you interested in [...] were you homeless or living in a half-way (including now)?: No Utilities In the past 12 months has the [employer], gas, oil, or water [employer] threatened to shut off services in your home?: No Post-Acute Discharge Plan: Chart reviewed. Pt admitted from [facility] for intractable diarrhea. She has an extensive medical history: Main [place]: 08/20/2024: Small bowel resection, Ileocecectomy with general surgery. 08/20/24: Bilateral below-knee popliteal cutdown, Thromboembolectomy of AT, PT and peroneal arteries. Primary repair of tibial arteriotomies. Bilateral lower extremity 4 compartment fasciotomies with vascular surgery. 08/22/2024: Second look laparotomy, loop-end jejunosotomy. 08/23/2024: BLE fasciotomy closure. She is currently having high ostomy output. GI consulted. Pt will return to [facility] at discharge. Will need auth to return; she was skilled for wound care. Will need transportation. SIGNATURE: CHANELL Stewart PATIENT NAME: Daly Evans DATE: October 22, 2024 TIME: 12:43 PM [facility] 10-21-2024 Note HNO ID: [id number] Author: WILLIS FINCH DO Service: Hospital Medicine Author Type: Physician [...] (Src) 98.6 (Oral) Resp 16 Ht 5' 7" (1.70m) Wt 192 lb 7.4 oz (87.3kg) [...] resection with ostomy Patient sent to an [facility] ED due to high output ostomy She had evidence of renal failure as well as multiple electrolyte abnormalities (see below) Gastroenterology is following C. diff negative Stool PCR collected, results pending Antimotility agent being deferred for now until infectious etiology is ruled out Acute kidney injury Creatinine 2.8 in [facility] ED Likely secondary to GI losses Continue IV fluids via lactated Ringer's at 150 cc/hour Creatinine now normalized Hyponatremia Sodium 130 in [facility] ED Likely secondary to GI losses Continue IV fluids as outlined above Sodium now 135 today Hypokalemia Potassium 3.3 in [facility] ED Likely secondary to GI losses Still 2.8 today Will supplement Chronic comorbidities Hx of DVT Bipolar disorder Anxiety Hx of substance abuse SIGNATURE: Willis Finch DO PATIENT NAME: Daly Evans DATE: October 21, 2024 TIME: 11:49 PM [facility] 10-21-2024 Note HNO ID: [id number] Author: TUNG JENNINGS MD Service: Gastroenterology Author [...] (Src) 98.4 (Oral) Resp 16 Ht 5' 7" (1.70m) Wt 192 lb 7.4 oz (87.3kg) [...] October 21, 2024 TIME: 12:09 PM PAGER: [facility] 10-20-2024 Note HNO ID: [id number] Author: WILLIS FINCH DO Service: Hospital Medicine Author Type: Physician [...] (Src) 97.9 (Oral) Resp 18 Ht 5' 7" (1.70m) Wt 192 lb 7.4 oz (87.3kg) [...] resection with ostomy Patient sent to an [facility] ED due to high output ostomy She had evidence of renal failure as well as multiple electrolyte abnormalities (see below) Gastroenterology is following Stool PCR ordered Antimotility agent being deferred for now until infectious etiology is ruled out Acute kidney injury Creatinine 2.8 in [facility] ED Likely secondary to GI losses Continue IV fluids via lactated Ringer's at 150 cc/hour Hyponatremia Sodium 130 in [facility] ED Likely secondary to GI losses Continue IV fluids as outlined above Hypokalemia Potassium 3.3 in [facility] ED Likely secondary to GI losses Will supplement Chronic comorbidities Hx of DVT Bipolar disorder Anxiety Hx of substance abuse SIGNATURE: Willis Finch DO PATIENT NAME: Daly Evans DATE: October 20, 2024 TIME: 4:15 PM [facility] 10-12-2024 Note HNO ID: [id number] Author: JAKE MORALES RN Service: Care Management Author Type: Registered Nurse Type: Care Mgt Progress Note Filed: 10/12/2024 12:02 Note Text: CARE MANAGEMENT DISCHARGE NOTE SERVICE DATE: October 12, 2024 SERVICE TIME: 11:57 AM Admission Date: 10/09/2024 LOS: 0 days Discharge Arrangement Pt to discharge to [facility] this date at 1200, father to transport pt. Services Arranged [facility]. Provider Name: Dr. Cosme Boland Caregiver Assessment SNF staff. Transportation Arrangements This RN cancelled transportation setup as pt's father can now transport pt. Handoff Communication: Summary of care sent to PCP and GI. Additional Information: Pt to discharge to [facility] this date at 1200, father to transport pt. No precert or HENS form needed. Discharge packet completed and on chart. Shanta RN called report and placed AVS in discharge packet. This RN sent updates via [employer]. Pt, attending, RN, charge gang weigher, and Niki from SNF notified of and agreeable to discharge plan. LOC SNF. Case closed. Discharge Information Row Name Admission (Current) from 10/09/2024 in MR 10M MED/SURG Residential Facility Agency [facility] -- Phone# -- SIGNATURE: Jake Morales RN PATIENT NAME: Daly Evans DATE: October 12, 2024 TIME: 11:57 AM [facility] 10-12-2024 Note HNO ID: [id number] Author: SHANTA MIMS RN Service: Nursing Author Type: Registered Nurse Type: Nursing Progress Note Filed: 10/12/2024 10:30 Note Text: Report called to Raisa at [facility]. [facility] 10-11-2024 Note HNO ID: [id number] Author: JAKE MORALES RN Service: Care Management [...] PICC placed for IV access. Pt from [facility] SLEEP TECHNOLOGIST. Pt stated that discharge plan is to return to [facility], SNF can accept pt back without precert. Pt denies use of DME. Pt + for PCP, Rx, and insurance. Pt needs transportation on discharge, pt aware of possible OOP costs and agreeable. Pt denies using DME. Per attending, pt will not discharge today due to restarting Lovenox and monitoring for any further episodes of hematemesis before discharging. Current discharge plan [facility]. CM will follow for and assist with transitional discharge needs. Discharge packet on chart. PACF and transportation form completed. Pt will need transportation setup for discharge. Of note, pt admitted at [facility] main 08/20/24 until 09/03/24 for the followin08/20/2024: [...] DATE: October 11, 2024 TIME: 2:19 PM [facility] 10-11-2024 Note HNO ID: [id number] Author: DIANDRA MARTINEZ MD Service: General Internal [...] (Src) 97.4 (Oral) Resp 18 Ht 5' 7" (1.70m) Wt 191 lb 5.8 oz (86.8kg) SpO2 94% LMP 08/29/2024 BMI 29.96 kg/(m2). O2 Therapy: Room Air General: Not in acute distress CVS: S1-S2 normal, no murmur, No JVD RS: Clear to auscultation bilaterally Abdomen: Soft, nontender, no organomegaly Musculoskeletal: No LE edema Neuro: AO x3, No focal deficits Psy: Cooperative, No anxiety/depression DATA: Recent Labs 10/11/24 1130 10/11/24 0624 10/10/24201210/10/24 1803 10/10/24 1106 PCGLUCOSE 105* 159* 85 180* 145* LABORATORY TESTS: CBC: Recent Labs 10/11/24 0629 10/10/24526 WBC 5.84 7.09 HB 9.2* 10.4* PLT [...] 0.76 0.99* HEPATIC: No results for input(s): "ALT", "AST", "TBILI", "ALKPHOS", "ALB", "TPROT", "LIPASE" in the last 168 hours. URINALYSIS:No results for input(s): "SPGR", "UBACTERIA", "LEUKEST", "SSA", "UWBC", "URBC", "UHB", "UPROT", "UGLUC", "UKET" in the last 168 hours. Invalid input(s): "NITR" COAG: No results for input(s): "APTT", "INR" in the last 168 hours. CARDIAC: No results for input(s): "CKMB", "CKMBP", "TROPT", "PBNP" in the last 168 hours. DATA: Diagnostic tests reviewed for today's visit: Most recent labs and imaging results. Most recent EKG Urine Culture: Positive Micro-30 Days Procedure Component Value Units Date/Time BACTERIAL CULTURE, URINE [[id number]] (Abnormal) Collected: 09/21/24914 Order Status: Completed Specimen: [...] Component Value Units Date/Time BACTERIAL CULTURE, URINE [[id number]] (Abnormal) Collected: 09/21/24 0915 Order Status: Completed Specimen: Urine (Nonspecific) Updated: [...] Lovenox Hx acute (more content not included)... [facility] 10-10-2024 Note HNO ID: [id number] Author: DIANDRA MARTINEZ MD Service: General Internal [...] (Src) 97.5 (Axillary) Resp 25 Ht 5' 7" (1.70m) Wt 191 lb 5.8 oz (86.8kg) [...] 0.76 0.99* HEPATIC: No results for input(s): "ALT", "AST", "TBILI", "ALKPHOS", "ALB", "TPROT", "LIPASE" in the last 168 hours. URINALYSIS:No results for input(s): "SPGR", "UBACTERIA", "LEUKEST", "SSA", "UWBC", "URBC", "UHB", "UPROT", "UGLUC", "UKET" in the last 168 hours. Invalid input(s): "NITR" COAG: No results for input(s): "APTT", "INR" in the last 168 hours. CARDIAC: No results for input(s): "CKMB", "CKMBP", "TROPT", "PBNP" in the last 168 hours. DATA: Diagnostic tests reviewed for today's visit: Most recent labs and imaging results. Most recent EKG Urine Culture: Positive Micro-30 Days Procedure Component Value Units Date/Time BACTERIAL CULTURE, URINE [[id number]] (Abnormal) Collected: 09/21/24914 Order Status: Completed Specimen: [...] Component Value Units Date/Time BACTERIAL CULTURE, URINE [[id number]] (Abnormal) Collected: 09/21/24914 Order Status: Completed Specimen: [...] ordered Hypoglycemia protocol (more content not included)... [facility] 10-10-2024 Note HNO ID: [id number] Author: JAKE MORALES RN Service: Care Management Author Type: Registered Nurse Type: Care Mgt Initial Assessment Filed: 10/10/2024 14:33 Note Text: CARE MANAGEMENT: ASSESSMENT AND DISCHARGE PLAN SERVICE DATE: October 10, 2024 SERVICE TIME: 2:17 PM PCP: Cosme Boland DO Primary Contact: Extended Emergency Contact Information Primary Emergency Contact: Ernst Evans Mobile Relation: Father Secondary Emergency Contact: Mary Evans [facility] Relation: Mother Admission Status: Observation Insurance Provider: CARLA MUÑOZ MEDICAID Discharge Planning requested by: Per Department Practice Potential Transition Plans To Be Determined Advance Directives Current Advance Directive: None Current Living Arrangements and Support Lives with: (At [facility].) Type of Residence: Residential Facility Does the patient have to climb stairs at home?: No Care Facility Name: [facility]. Support: Parent, Family members How do you manage to accomplish the following: Independent: Ambulation, Bathe/Shower, Dress, Going to the bathroom Dependent: Meals/Meal Prep, Medication Management, Transportation to appointments/community Current Services/Equipment Current Post-Acute Service(s): None Discharge Planning Patient Goal(s): General wellness [place] Explained: Are you interested in bedside delivery of your medications? No Discharge Planning Participant(s): Patient Patient/Family Comments: Caregiver Assessment: Caregiver is ready, willing and able to meet the patient's needs as recommended by the inter-professional team: (SNF staff.) Transport at Discharge: Transportation Arrangements: To Be Determined Needs Prior to Discharge: Post-Acute Discharge Plan: Pt from [facility] SLEEP TECHNOLOGIST. Pt stated that discharge plan is to return to [facility], this RN requested that [facility] send return referral. Pt denies [...] transportation setup. Of note, pt admitted at [facility] main 08/20/24 until 09/03/24 for the followin08/20/2024: [...] were you homeless or living in a half-way (including now)?: No Utilities In the past 12 months has the electric, gas, oil, or water [employer] threatened to shut off services in your home?: No Social Information Financial Resources: Unemployed SIGNATURE: Jake Morales RN PATIENT NAME: Daly Evans DATE: October 10, 2024 TIME: 2:17 PM [facility] 10-10-2024 Note HNO ID: [id number] Author: CHARLEE GARCIA RN Service: PICC Team Author Type: Registered Nurse Type: Procedures Filed: 10/10/2024 08:37 Note Text: MIDLINE INSERTION PROCEDURE NOTE - PICC TEAM NURSES DATE OF PROCEDURE: 10/10/2024 TIME OF PROCEDURE: 0800 ORDERING PHYSICIAN: Alycia Rawls CNP Indications for line placement: Intravenous access Condition of line placement: Sterile Primary Proceduralist: Shawn Vasquez RN Childcare Aide: Charlee Garcia RN Pre-procedure Review: ALLERGIES Allergen Reactions Hydrocodone-Acetami* [...] with the procedure. [facility] Patient/Surrogate Stated/Verified: Patient name, Date of , [...] patients). Midline Catheter Placement: Brand: BARD Lot: [id number] Number of lumens: 1 Type of Midline: Power Injectable Midline Lumen size: 3 Upper Sorbian Placement Technique: Lidocaine: Yes, Lidocaine 1% Volume [...] or problems: Call Vascular Access Nurse on [facility] SIGNATURE: Charlee Garcia RN PATIENT NAME: Daly Evans DATE: October 10, 2024 TIME: 8:34 AM PAGER: Call [facility] 10-10-2024 Telephone encounter Note Scheduled. Message left for patient to confirm. Hospital will print at discharge. [facility] Work Phone: 10-10-2024 Miscellaneous Notes Scheduled. Message left for patient to confirm. Hospital will print at discharge. I see she is currently admitted to the hospital for accidental overdose. Please schedule her for follow-up with me after discharge to discuss recent lab work she had done at her initial consultation here. Martín Pendleton DO documented in this encounter [facility] 10-09-2024 Note HNO ID: [id number] Author: LETTY ARAUZ RDMS Service: Radiology Author [...] PATIENT PRESENTS WITH AN IMPLANTABLE OR ATTACHED SALES FORCE ADMINISTRATOR: No RADIOLOGY DEPARTMENT: Ultrasound PERIPHERAL IV DATA: Not applicable SIGNED BY: Letty Arauz RDMS October 09, 2024 7:05 PM [facility] 10-09-2024 Telephone encounter Note I see she is currently admitted to the hospital for accidental overdose. Please schedule her for follow-up with me after discharge to discuss recent lab work she had done at her initial consultation here. Martín Pendleton DO [facility] Work Phone: 10-08-2024 Telephone encounter Note We were able to complete the virtual education visit as scheduled. [facility] 10-08-2024 Miscellaneous Notes We were able to [...] this morning his call back number is [phone] documented in this encounter [facility] 10-08-2024 Telephone encounter Note I returned her father's call and got voicemail at the number he asked me to call and left a message. I then tried to call his cell and got voicemail as well and left another message. [facility] 10-08-2024 Telephone encounter Note Patient father called in stated he would like a call back this morning concerning the phone visit scheduled at 10am this morning his call back number is [phone] [facility] 10-08-2024 Telephone encounter Note Images from the original note were not included. [facility] RE[facility]ERRAL: Referring Physician: Dr. Peter Smith ([facility]) Reason for Referral: Surgical rehabilitation Referring Diagnosis: SMA occlusion, disconnected SBS, on TPN HISTORY: Daly Estrella Lover is a 39 year old single female from [place], [place] ([address], supportive father) with a history of bipolar disorder, severe panic attacks, polysubstance abuse (EtOH, marijuana - sober since at least Apr 2024), violent behavior under influence of EtOH (September 2021), smoking (quit Jul 2024), (2012), preDM, and lap maryellen (2018). She was transferred to F 08/20/24 with a mural thrombus in the [...] DC to SNF 09/03/24 and referred to [facility] Medical and Surgical Teams for STEP [...] since 08/22/24 stopped approx 10/01/24 at the group home. Tube Feeds: no Height: 172 cm (5' 7.72") Weight: 91.5 kg (201 lb 11.5 oz) on 09/03/24 - BMI 30.9 Residential Facility Attending Physician manages her TPN. Dr. [...] Tuesday10/22/24, with labs in A30 at noon. [facility] 10-08-2024 Miscellaneous Notes Images from the original note were not included. [facility] REFERRAL: Referring Physician: Dr. Peter Smith ([facility]) Reason for Referral: Surgical rehabilitation Referring Diagnosis: SMA occlusion, disconnected SBS, on TPN HISTORY: Daly Estrella Lover is a 39 year old single female from [place], [place] ([address], supportive father) with a history of bipolar disorder, severe panic attacks, polysubstance abuse (EtOH, marijuana - sober since at least Apr 2024), violent behavior under influence of EtOH (September 2021), smoking (quit Jul 2024), (2012), preDM, and lap maryellen (2018). She was transferred to F 08/20/24 with a mural thrombus in the [...] DC to SNF 09/03/24 and referred to [facility] Medical and Surgical Teams for STEP [...] since 08/22/24 stopped approx 10/01/24 at the group home. Tube Feeds: no Height: 172 cm (5' 7.72") Weight: 91.5 kg (201 lb 11.5 oz) on 09/03/24 - BMI 30.9 Residential Facility Attending Physician manages her TPN. Dr. [...] A30 at noon. documented in this encounter [facility] 10-03-2024 Telephone encounter Note Faxed. Irma Avila RN [facility] 10-03-2024 Miscellaneous Notes Faxed. Irma Avila RN [facility] called requesting office visit notes from yesterday be faxed to them at [phone] documented in this encounter [facility] 10-03-2024 Telephone encounter Note Quinton Alarcon called requesting office visit notes from yesterday be faxed to them at [phone] [facility] Work Phone: 10-02-2024 History of Present illness Narrative Patient referred by Dr. 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 HPI: The patient is a 39-year-old female with past medical history as outlined below. Presented to the ED at [facility]. 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 Sent to [facility]. Surgical notes reviewed. Heterozygous factor V Leiden. Positive for lupus anticoagulant. JAK2 mutation negative PNH negative. Protein electrophoresis revealed a monoclonal spike quantitated at 0.21 g/dL. No monoclonal protein identified by immunofixation. Both kappa and lambda light chains elevated with an increased ratio of kappa to lambda. Immunoglobulins normal. Beta-2 microglobulin 3.0. Feeling better. At group home. On TPN 12 hours via left arm PICC. Has somewhat of an appetite. Has been eating small amounts. Walking. Still has gilberto in abdominal incision. Tolerating Lovenox injections well. No unusual bleeding or unexplained bruising. PAST MEDICAL HISTORY Diagnosis Date Attempted suicide ([facility]) polysubstance Bipolar depression ([facility]) [facility] Gestational diabetes mellitus in ([facility]) Impaired fasting blood sugar 06/2015 a1c 5.7% [...] Never Tobacco comments: Pateint only uses the "Vape" She doesnt smoke nicotine Patient quit smoking [...] temperature source Temporal, height 169.5 cm (5' 6.73"), weight 92.5 kg (204 lb), last menstrual [...] has follow-[facility] scheduled [facility]. - Recheck protein C&S today. - Her weight is 90 kg. Check low molecular weight heparin assay. - Check anticardiolipin and antibeta 2 glycoprotein antibodies today. -Plan on rotating to Coumadin once more stable as outlined above. I spent a total of 60 minutes on the date of the service which included preparing to see the patient, rggo-ki-ifez patient care, completing clinical documentation, obtaining and/or reviewing separately obtained history, performing a medically appropriate examination, counseling and educating the patient/family/caregiver, ordering medications, tests, or procedures, communicating with other HCPs (not separately reported), and communicating results to the patient/family/caregiver. Martín Pendleton DO documented in this encounter [facility] 09-27-2024 Note . MICRO - Microbiology PROCEDURE: [...] Locations *1: This test was performed at: [place], [address] [place] [address], [facility] , [facility] 09-27-2024 Note . MICRO - Microbiology PROCEDURE: [...] Locations *1: This test was performed at: [place], [address] [place] [address], [id number] , [facility] 09-27-2024 Note . MICRO - Microbiology PROCEDURE: [...] Locations *1: This test was performed at: [address], [address] [place] [address] 09-22-2024 Note . MICRO - Microbiology PROCEDURE: [...] Locations *1: This test was performed at: [address], [address] [place] [address] 09-20-2024 Note . MICRO - Microbiology PROCEDURE: [...] Locations *1: This test was performed at: [place], [address] [place] [address], [facility] , [facility] 09-19-2024 History of Present illness Narrative Images from the original note were not included. Heart , V[facility] Thor[facility] [place] DEPARTMENT OF VASCULAR SURGERY OUTPATIENT VISIT DATE September 19, 2024 OUTPATIENT VISIT TYPE ESTABLISHED SERVICE DATE: 09/19/2024 SERVICE TIME: 1330 PRIMARY CARE PHYSICIAN: Cosme Boland DO HISTORY OF PRESENT ILLNESS: Ms. [...] Never Tobacco comments: Pateint only uses the "Vape" She doesnt smoke nicotine Vaping Use Vaping [...] 2024 TIME: 1434 documented in this encounter [facility] 09-17-2024 Note Discharge Instructio ns Discharge Summary [address] [address] [id number] 09/17/2024 Patient: DALY EVANS Sex: Female : 1985 Age: 39y Thank you for visiting [facility]. You have been evaluated today by [...] by patient. Follow-up with: Maggie Putnam MD, [facility], Internal Medicine, Phone: [phone], [address] [place] [address] [address], [place] [address]. Follow up in two days. Reason for referral: evaluation and treatment. Summary of care provided to follow-up provider and patient. Patient Signature 1 of 2 Discharge Instructions Facility Government Sales Manager Date/Time General Instructions with ExitWriter [facility] [address] [place] [address] [id number] 09/17/2024 Patient: DALY EVANS Sex: Female : 1985 Age: 39y Thank you for visiting [facility]. You have been evaluated today by [...] by patient. Follow-up with: Maggie Putnam MD, [facility], Internal Medicine, Phone: [phone], [address] [place] [address] [place] [id number]. Follow up in two days. Reason for referral: evaluation and treatment. Summary of care provided to follow-up provider and patient. 2 of 2 [facility] 09-12-2024 Telephone encounter Note Called placed to Stefany at the pt's prison facility. Spoke to Stefany and she gave me the patient's room phone number. Tried calling the [phone] (pt's room phone number) but the pt did not answer and I was unable to leave a message. Will try again tomorrow. [facility] 09-12-2024 Miscellaneous Notes Called placed to Stefany at the pt's prison facility. Spoke to Stefany and she gave me the patient's room phone number. Tried calling the [phone] (pt's room phone number) but the pt did not answer and I was unable to leave a message. Will try again tomorrow. documented in this encounter [facility] 09-12-2024 Telephone encounter Note Scheduled with Stefany. [facility] Work Phone: 09-12-2024 Miscellaneous Notes Scheduled with Stefany. 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 Okay to schedule with either physician. Donna Hill LPN Received call from Stefany at [facility] stating Dr. Putnam would like patient to be seen by hematology, discharge papers showing blood clots. Patient had been seen at [facility] in vascular. Please advise Stefany at [phone] documented in this encounter [facility] 09-12-2024 Telephone encounter Note DX: Acute phase response (low PC/PS/ATIII, elevated Factor VII, CRP); looks like lupus anticoagulant will be positive (+mix, platelet neutralization, hex phase), aCL and B2GP abs normal PHN, ANDREW-2, UPEP normal SPEP with +M protein Had embolectomy in July. Okay to schedule with either physician. Donna Hill LPN [facility] 09-12-2024 Telephone encounter Note Received call from Stefany at [facility] stating Dr. Putnam would like patient to be seen by hematology, discharge papers showing blood clots. Patient had been seen at [facility] in vascular. Please advise Stefany at [phone] [facility] 09-11-2024 Telephone encounter Note Jose Cutler, Looks like this patient was discharged to a facility. Maybe Stefany knows of a way to reach the patient directly? Shi Vargas [facility] 09-11-2024 Miscellaneous Notes Jose Cutler, Looks like this patient was discharged to a facility. Maybe Stefany knows of a way to reach the patient directly? Shi Vargas Stefany from the [facility] is calling in stating that the patients discharge instructions state to consult with the center for gut rehab regarding patients short bowel syndrome. Stefany is asking for a call back at [phone]. documented in this encounter [facility] 09-11-2024 Telephone encounter Note Stefany from the [facility] is calling in stating that the patients discharge instructions state to consult with the center for gut rehab regarding patients short bowel syndrome. Stefany is asking for a call back at [phone]. [facility] 09-10-2024 Telephone encounter Note 2nd call placed, left a vm. Letter sent as well. Will close referral on 09/17 if I do not hear back. [facility] 09-10-2024 Miscellaneous Notes 2nd call placed, left a vm. Letter sent as well. Will close referral on 09/17 if I do not hear back. documented in this encounter [facility] 09-06-2024 Telephone encounter Note Called pt but was unable to leave vm due to vm box full. Tried calling her father Ernst and left him a vm to give our office a call back to begin referral for short bowel. [facility] 09-06-2024 Miscellaneous Notes Called pt but was unable to leave vm due to vm box full. Tried calling her father Ernst and left him a vm to give our office a call back to begin referral for short bowel. documented in this encounter [facility] 09-05-2024 Telephone encounter Note Triage please? Stefany from prison facility called for appt for patient with Dr Goncalves.Patient had surgery with Dr Palomares in Jul 2024 please advise? Alicia, [facility] 09-05-2024 Miscellaneous Notes Triage please? Stefany from prison facility called for appt for patient with Dr Goncalves.Patient had surgery with Dr Palomares in Jul 2024 please advise? Thanks, Reason for call: Stefany would like to schedule an appointment with Dr Goncalves for f/up Home and cell number [phone] Diagnosis-f/up Best regardsKev documented in this encounter [facility] 09-05-2024 Telephone encounter Note Reason for call: Stefany would like to schedule an appointment with Dr Goncalves for f/up Home and cell number [phone] Diagnosis-f/up Best regards, Kev [facility] 09-03-2024 Telephone encounter Note Received referral from referral triage for short bowel. Will call the pt for intake once discharged. [facility] 09-03-2024 Miscellaneous Notes Received referral from referral triage for short bowel. Will call the pt for intake once discharged. documented in this encounter [facility] 08-29-2024 Telephone encounter Note Left multiple messages by phone sent my chart message. [facility] 08-29-2024 Telephone encounter Note ----- Message from Xochilt Gaston APRN.MANUFACTURING MILLWRIGHT sent at 08/08/2024 4:07 PM EST ----- Routing information can be restored upon returning to the encounter [facility] 08-29-2024 Miscellaneous Notes Left multiple messages by phone sent my chart message. ----- Message from Xochilt Gaston APRN.MANUFACTURING MILLWRIGHT sent at 08/08/2024 4:07 PM EST ----- Routing information can be restored upon returning to the encounter Line busy will need to try back. ----- Message from Xochilt Gaston APRN.MANUFACTURING MILLWRIGHT sent at 08/08/2024 4:07 PM EST ----- Routing information can be restored upon returning to the encounter Called and left message on patients voicemail to return call to the office and ask to speak with a triage nurse. Lauren Hull MA ----- Message from Xochilt Gaston APRN.MANUFACTURING MILLWRIGHT sent at 08/08/2024 4:07 PM EST ----- [...] range. No other concerns. Xochilt Gaston APRN.CNP documented in this encounter [facility] 08-29-2024 Telephone encounter Note Line busy will need to try back. [facility] 08-29-2024 Telephone encounter Note ----- Message from Xochilt Gaston APRN.CNP sent at 08/08/2024 4:07 PM EST ----- Routing information can be restored upon returning to the encounter [facility] 08-20-2024 History of Present illness Narrative Images from the original note were not included. Critical Care Transport Note Patient Name: Daly Evans Service Date: 08/20/24 Referring Physician: Jeannine Referring Facility: [facility] Accepting Physician: David Accepting Facility: [facility] SUBJECTIVE/CHIEF COMPLAINT: abdominal pain, nausea REASON FOR TRANSPORT: Specialized tertiary and quaternary care for the patient's acute cardiovascular condition not available at the referring facility. History of Present Illness: The following history is what was known to CCT team at time of given care and summarized through review of available medical records, patient/family interview and from referring physician and nursing report. Daly Joaquinr is a 38 year old female with a past medical history significant for bipolar disorder, borderline personality disorder, anemia, smoking/vaping and vit D deficiency. She presented to [facility] early this AM for evaluation of [...] managing the patient requested transfer to the [facility] for tertiary and/or quaternary services unavailable at the referring facility. The physician managing the patient requested the [facility] Critical Care Transport Team transport and treat the patient for the purpose of tertiary care, evaluation, and management of her acute aortic mural thrombus with SMA occlusion condition(s). Air medical transport was requested to reduce the gdw-nh-bmdoubsg time, 19 minutes by air vs. approximately [...] suicide (HCC) polysubstance Bipolar depression (HCC) [facility] Gestational diabetes mellitus in [...] Never Tobacco comments: Pateint only uses the "Vape" She doesnt smoke nicotine Vaping Use Vaping [...] SaO2 >/= 93% - Expedite transport to [facility] for further workup and care The transport was completed without significant incident or change in the patient's status. The patient was transported to the the [facility] by [employer]otor (Helicopter) for tertiary and/or quaternary evaluation and management of her Emergent Surgical condition(s). Upon arrival to the receiving facility, a xymt-hl-exfc report was given to bedside nursing staff in [facility]- and bedside medical team . Patient care [...] pain and the Cardiovascular impairment, Respiratory impairment, FINANCIAL SERVICES ASSISTANT impairment, Shock, Cardiac Arrest, and Severe metabolic abnormality which the patient had and/or had a high probability of suddenly developing. SIGNATURE: Katelyn Villagran APRN.CNP Acute Care Nurse Practitioner [facility] Critical Care Transport Team documented in this encounter [facility] 08-20-2024 Procedure note Procedure(s): ARTERIAL LINE PLACEMENT Images from the original note were not included. Arterial Line PROCEDURE NOTE Patient: Daly Evans Date: August 20, 2024 Procedure Time: 0835 INFORMED CONSENT: Informed consent was not obtained [...] APRN.CNP PATIENT NAME: Daly Evans DATE: 08/20/24 [facility] 08-20-2024 Procedure note Procedure(s): ARTERIAL LINE PLACEMENT Images from the original note were not included. Arterial Line PROCEDURE NOTE Patient: Daly Evans Date: August 20, 2024 Procedure Time: 0835 INFORMED CONSENT: Informed consent was not obtained [...] Evans DATE: 08/20/24 documented in this encounter [facility] 08-16-2024 History of Present illness Narrative Chief [...] suicide (HCC) polysubstance Bipolar depression (HCC) [facility] Gestational diabetes mellitus in Impaired fasting [...] Never Tobacco comments: Pateint only uses the "Vape" She doesnt smoke nicotine Vaping Use Vaping [...] Time: 3:37 PM documented in this encounter [facility] 08-10-2024 Telephone encounter Note Called and left message on patients voicemail to return call to the office and ask to speak with a FM triage nurse. Lauren Hull MA [facility] 08-08-2024 Telephone encounter Note ----- Message from Xochilt Gaston APRN.MANUFACTURING MILLWRIGHT sent at 08/08/2024 4:07 PM EST ----- Routing information can be restored upon returning to the encounter [facility] 08-08-2024 Telephone encounter Note Left message to return call Akiko Pettit MA [facility] 08-08-2024 Telephone encounter Note Please let [...] diabetes range. No other concerns. Xochilt Gaston APRN.JUANY [facility] 08-07-2024 Telephone encounter Note Lexapro and Zyprexa prescription was sent to the patient's pharmacy. [facility] 08-07-2024 Miscellaneous Notes Lexapro and Zyprexa prescription [...] medication management. Thanks! documented in this encounter [facility] 08-07-2024 Telephone encounter Note Appreciate the update. Glad her EKG was normal and she was able to come in to see you. Will send in her refills. [facility] 08-07-2024 Telephone encounter Note Jose Tipton, We did Daly's EKG today and it looks great, completely normal. She asked me to let you know because you needed it for medication management. Thanks! [facility] 08-07-2024 History of Present illness Narrative Chief [...] Never Tobacco comments: Pateint only uses the "Vape" She doesnt smoke nicotine Vaping Use Vaping status: Some Days Substance Use Topics Alcohol use: Yes Comment: occassional Drug use: No Review of Symptoms REVIEW OF SYSTEMS See HPI, otherwise negative EXAM: BP 108/72 (BP Site: Left Arm, BP Position: Sitting, BP Cuff Size: Regular Adult) Pulse 106 Ht 172 cm (5' 7.72") Wt 98 kg (216 lb) LMP 04/20/2021 [...] A1C - COMPREHENSIVE METABOLIC PANEL Xochilt Gaston APRN.CNP documented in this encounter [facility] 05-20-2024 Instructions Clayton Granados APRN.CNP - 05/20/2024 9:38 PM EST TREATMENT PLAN: Discontinue Lamictal and Trazodone and patient stopped taking them due to reporting lack of efficacy. Complete monitoring lab work and EKG due to the risk of side effects due to termite control representative use of the combination of medication prescribed [...] the National Suicide Prevention Lifeline at 988 (107-098-8666) --text the Crisis Text Line (text HOME to 939804) --call 311 and let them know you are having a mental health crisis or go to your nearest Emergency Room for stabilization. --You can also call Mobile Crisis at [phone]. -- You may call the department appointment line at [phone] to schedule your appointment. -- Please call my nurse at [phone] or send me a message in Junk4Junk with any questions or concerns between appointments. documented in this encounter [facility] 05-18-2024 History of Present illness Narrative Images [...] visit. Either the patient or their legal paper sales representative has been informed of the risks [...] this at her earliest availability due to senior care side effect profile of her current medications. [...] ago. Has not been taking the Lamictal. [place] that she forgot to take it and [...] turn and I can't shut my brain off". Struggles with racing thoughts and intrusive thoughts. [...] the risk of side effects due to senior care use of the combination of medication prescribed [...] which included preparing to see the patient, zegv-xz-posf patient care, completing clinical documentation, and counseling and educating the patient/family/caregiver, ordering medications/labs. ADD ON PSYCHOTHERAPY CODE : No SIGNATURE: Clayton Granados APRN.CNP PATIENT NAME: Daly Evans DATE: May 18, 2024 TIME: 2:07 PM documented in this encounter [facility] 03-03-2024 History of Present illness Narrative Patient did not log in for their follow up visit with the provider today. documented in this encounter [facility] 01-30-2024 Telephone encounter Note Tried calling patient no answer or vm available, sent Quartics message [facility] 01-30-2024 Miscellaneous Notes Tried calling patient no answer or vm available, sent Quartics message documented in this encounter [facility] 01-19-2024 History of Present illness Narrative Patient did not attend her follow up appointment with the provider today. She did not answer her phone when she was contacted prior to the appointment time. It appeared that she had confirmed her appointment today. documented in this encounter [facility] 12-30-2023 History of Present illness Narrative Patient sent a mychart requesting to reschedule the appointment right before the visit. Patient has been assisted in rescheduling this visit. documented in this encounter [facility] 12-12-2023 Telephone encounter Note Prescription Refill Information [...] Caba MA December 12, 2023 8:34 AM [facility] 12-12-2023 Telephone encounter Note See refill encounter [facility] 12-12-2023 Miscellaneous Notes See refill encounter documented in this encounter [facility] 12-12-2023 Miscellaneous Notes Prescription Refill Information The [...] 2023 8:34 AM documented in this encounter [facility] 09-27-2023 Miscellaneous Notes Patient has been identified [...] Satish Baez LPN. documented in this encounter [facility] 09-02-2023 History of Present illness Narrative FOLLOW [...] visit. Either the patient or their legal paper sales representative has been informed of the risks [...] for individual psychotherapy. Today Daly shares that "I am a mess". She has been trying to find a new job. She got sick with Flu and had to take 3 weeks off her job at [employer]. She is not having any luck in finding a job. The background check tends to be a barrier. She had tried to reach out to some [employer] agency. 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 [...] which included preparing to see the patient, ecci-za-ovna patient care, completing clinical documentation, obtaining and/or [...] TIME: 10:44 AM documented in this encounter [facility] 05-16-2023 History of Present illness Narrative FOLLOW [...] visit. Either the patient or their legal paper sales representative has been informed of the risks [...] helping in 2 weeks by sending a Quartics message. 2. Continue the rest of the [...] looking for a job. Has applied to [employer]. She is worried that the background check [...] any marijuana use currently and then states, "that might change as it becomes legal on June 02". Discuss the risks of marijuana use with [...] which included preparing to see the patient, cluu-ng-susz patient care, completing clinical documentation, obtaining and/or [...] TIME: 4:03 PM documented in this encounter [facility] 04-18-2023 History of Present illness Narrative FOLLOW [...] visit. Either the patient or their legal paper sales representative has been informed of the risks [...] [facility] [place] [facility]. Would like to do it 3 [...] suicide (HCC) polysubstance Bipolar depression (HCC) [facility] Gestational diabetes mellitus in [...] helping in 2 weeks by sending a Quartics message. 2. Continue the rest of the [...] which included preparing to see the patient, lbyq-pu-yzyd patient care, completing clinical documentation, obtaining and/or reviewing separately obtained history, counseling and educating the patient/family/caregiver, ordering medications, tests, or procedures, and independently interpreting results (not separately reported). ADD ON PSYCHOTHERAPY CODE : No SIGNATURE: Clayton Granados APRN.CNP PATIENT NAME: Daly Evans DATE: April 18, 2023 TIME: 1:04 PM documented in this encounter [facility] 03-15-2023 Miscellaneous Notes Patient has been [...] Tasia Rand LPN documented in this encounter [facility] 03-14-2023 Instructions Clayton Granados APRN.CNP - 03/14/2023 2:00 PM EDT Calixto Daly, It was good to talk with [...] - Call the National Suicide Hotline at 1-218-AEBWOQI ( ) or 7-139-503-TALK ([phone]) - Text 0JOPE to [phone] Medication Update: Lexapro 20 mg - take 2 tablets once daily. Continue the rest of the psychiatric medications at the same dose. Other: Make an appointment to get EKG done. Next appointment: --Schedule in 4 to 6 weeks or sooner if needed -- You may call the department appointment line at [phone] to schedule your appointment. -- Please call my nurse Cassy at [phone] or send me a message in Junk4Junk with any questions or concerns between appointments. documented in this encounter [facility] 03-14-2023 History of Present illness Narrative Images [...] visit. 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 I am anxious all the time and depressed all the time". She has been getting so anxious which [...] which included preparing to see the patient, zkxt-bp-ruvi patient care, completing clinical documentation, and counseling and educating the patient/family/caregiver, ordering medications/labs. Clayton Granados APRN.JUANY March 14, 2023 1:38 PM This note was partially generated using BIlprospekt voice recognition system. Note was reviewed for accuracy. There may be minor misspellings or grammar miscues with BIlprospekt voice recognition. documented in this encounter [facility] 01-05-2023 Miscellaneous Notes Refill sent. Mychart sent. documented in this encounter [facility] 10-28-2022 History of Present illness Narrative Images [...] visit. Either the patient or their legal paper sales representative has been informed of the risks [...] which included preparing to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- Primary Hypokalemia Hypopotassemia Malnutrition of moderate degree (HCC) Malnutrition of moderate degree Anticoagulation management encounter Encounter for therapeutic drug monitoring 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 [facility] Diagnosis High output ileostomy (HCC)- Primary [...] influencing health status Low hemoglobin Anemia, unspecified Deep vein thrombosis (DVT) of proximal lower extremity, unspecified chronicity, unspecified laterality (HCC)- Primary [facility] Outpatient Procedure (Routine) - Pending Review Specialty Diagnoses / Procedures Referred By Matias t Referred To [facility] Diagnoses ELIJAH (generalized anxiety disorder) Procedures ECG COMPLETE ECG ROUTINE ECG W/LEAST 12 LDS W/I&R Clayton Granados, GERIATRIC SOCIAL WORK PROFESSOR.[employer] [address] [place] [address] [facility] [address] [place] [address] Referral ID Status Reason Start Date Expiration Date Visits Requested Visits Authorized [id number] Pending Review Auto-Generat ed Referral 12/24/2021 12/24/2022 1 1 [facility] for referral (narrative)* Diagnostic Procedure Only (Routine) - Pending Review Specialty Diagnoses / Procedures Referred By Contac t Referred To Contact XR IMAGING Diagnoses Foot pain, bilateral Procedures XR FOOT GENERAL 3V AP/LAT/OBL BILATERAL RADEX FOOT COMPLETE MINIMUM 3 VIEWS Cosme Boland DO [address] [place] [address] [facility] Referral ID Status Reason Start Date Expiration Date Visits Requested Visits Authorized [id number] Pending Review Auto-Generat ed Referral 02/02/2022 03/04/2023 1 1 * Diagnostic Procedure Only (Routine) - Pending Review Specialty Diagnoses / Procedures Referred By Contac t Referred To Contact XR IMAGING Diagnoses Bilateral hand pain Procedures XR HAND GENERAL 3V PA/LAT/OBL BILATERAL RADEX HAND MINIMUM 3 VIEWS Cosme Boland DO [address] [place] [address] [facility] Referral ID Status Reason Start Date Expiration Date Visits Requested Visits Authorized [id number] Pending Review Auto-Generat ed Referral 02/02/2022 03/04/2023 1 1 [facility] for referral (narrative)* Outpatient Procedure (Routine) - Pending Review Specialty Diagnoses / Procedures Referred By Contac t Referred [facility] Diagnoses Encounter for long-term (current) use of medications Procedures ECG COMPLETE ECG ROUTINE ECG W/LEAST 12 LDS W/I&R Clayton Granados APRN.[employer] [address] [place] [address] [facility] [address] [place] [address] Referral ID Status Reason Start Date Expiration Date Visits Requested Visits Authorized [id number] Pending Review Auto-Generat ed Referral 03/14/2023 03/13/2024 1 1 [facility] for referral (narrative)* Diagnostic Procedure Only (Routine) - Pending Review Specialty Diagnoses / Procedures Referred By Matias vaughan Referred To Contact BR IMAGING Diagnoses Encounter for screening mammogram for breast cancer Procedures MILO SCREENING SCREENING MAMMOGRAPHY BI 2-VIEW BREAST INC CAD Cosme Boland DO [address] [place] [address] [facility] [address] [place] [address] Referral ID Status Reason Start Date Expiration Date Visits Requested Visits Authorized [id number] Pending Review Auto-Generat ed Referral 10/19/2023 11/17/2024 1 1 [facility] for referral (narrative)* Diagnostic Procedure Only (Routine) - Closed Specialty Diagnoses / Procedures Referred By Ashlynac t Referred To Contact XR IMAGING Diagnoses Acute pain of left knee Procedures XR KNEE GENERAL 4V AP BOTH/PA BOTH/LAT/MERC LT KNEE AP-WGT/LAT/MERCHANT Herbert Izquierdo MD [address] [place] [address] [place] [address] Referral ID Status Reason Start Date Expiration Date V isits Requested Visits Authorized [id number] Closed Auto-Generate d Referral 03/12/2021 04/11/2022 1 1 [facility] for referral (narrative)* Outpatient Procedure (Routine) - New Request Specialty Diagnoses / Procedures Referred By Ashlynac t Referred To [facility] Diagnoses Encounter for long-term (current) use of medications Procedures ECG COMPLETE ECG ROUTINE ECG W/LEAST 12 LDS W/I&R Clayton Granados APRN.[employer] [address] [place] [address] [facility] [address] [place] [address] Referral ID Status Reason Start Date Expiration Date Visits Requested Visits Authorized [id number] New Request Auto-Generat ed Referral 05/18/2025 1 1 [facility] for visit Narrative* Diagnostic Procedure Only (Routine) - Closed Specialty Diagnoses / Procedures Referred By Contac t Referred To Contact XR IMAGING Diagnoses Acute pain of left knee Procedures XR KNEE GENERAL 4V AP BOTH/PA BOTH/LAT/MERC LT KNEE AP-WGT/LAT/MERCHANT Herbert Izquierdo MD [address] [facility] [place] [address] [place] [address] Referral ID Status Reason Start Date Expiration Date V isits Requested Visits Authorized [id number] Closed Auto-Generate d Referral 03/12/2021 04/11/2022 1 1 [facility] Summary Purpose Family History No Family History [...] Documents on File Type Date Recorded 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 Advance Directive(s) 10/10/2021 1:22 AM Documents on File Type Date Recorded 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 Advance Directive(s) 10/10/2021 1:22 [...] section and content) DATE CREATED AUTHOR 01/07/2018 [facility] DATE CREATED AUTHOR AUTHOR'S ORGANIZ ATION 06/13/2018 [facility] DATE CREATED AUTHOR AUTHOR'S ORGANIZ ATION 05/30/2021 [facility] DATE CREATED AUTHOR AUTHOR'S ORGANIZ ATION 10/07/2022 [facility] DATE CREATED AUTHOR AUTHOR'S ORGANIZ ATION 10/07/2022 [facility] DATE CREATED AUTHOR AUTHOR'S ORGANIZ ATION 12/08/2022 [facility] DATE CREATED AUTHOR AUTHOR'S ORGANIZ ATION 09/30/2024 [facility] DATE CREATED AUTHOR AUTHOR'S ORGANIZ ATION 10/30/2024 [facility] DATE CREATED AUTHOR AUTHOR'S ORGANIZ ATION 11/04/2024 [facility] DATE CREATED AUTHOR AUTHOR'S ORGANIZ ATION 03/29/2025 [facility] DATE CREATED AUTHOR AUTHOR'S ORGANIZ ATION 04/23/2025 [facility] DATE CREATED AUTHOR AUTHOR'S ORGANIZ ATION 05/03/2025 [facility] DATE CREATED AUTHOR AUTHOR'S ORGANIZ ATION 05/08/2025 [facility] Source Comments (unrecognize d section and content) In the event this informatio n is protected by the Federal Confidentiality of Alcohol and Drug Abuse Patient Records regulations: The Federal rules restrict any use of the information to criminally investigate or prosecute any alcohol or drug abuse patient.[facility] the event this information is protected by the Federal Confidentiality of Alcohol and Drug Abuse Patient Records regulations: The Federal rules restrict any use of the information to criminally investigate or prosecute any alcohol or drug abuse patient.[facility] the event this information is protected by the Federal Confidentiality of Alcohol and Drug Abuse Patient Records regulations: The Federal rules restrict any use of the information to criminally investigate or prosecute any alcohol or drug abuse patient.[facility] the event this information is protected by the Federal Confidentiality of Alcohol and Drug Abuse Patient Records regulations: The Federal rules restrict any use of the information to criminally investigate or prosecute any alcohol or drug abuse patient.[facility] the event this information is protected by the Federal Confidentiality of Alcohol and Drug Abuse Patient Records regulations: The Federal rules restrict any use of the information to criminally investigate or prosecute any alcohol or drug abuse patient.[facility] the event this information is protected by the Federal Confidentiality of Alcohol and Drug Abuse Patient Records regulations: The Federal rules restrict any use of the information to criminally investigate or prosecute any alcohol or drug abuse patient.[facility] the event this information is protected by the Federal Confidentiality of Alcohol and Drug Abuse Patient Records regulations: The Federal rules restrict any use of the information to criminally investigate or prosecute any alcohol or drug abuse patient.[facility] the event this information is protected by the Federal Confidentiality of Alcohol and Drug Abuse Patient Records regulations: The Federal rules restrict any use of the information to criminally investigate or prosecute any alcohol or drug abuse patient.[facility] the event this information is protected by the Federal Confidentiality of Alcohol and Drug Abuse Patient Records regulations: The Federal rules restrict any use of the information to criminally investigate or prosecute any alcohol or drug abuse patient.[facility] the event this information is protected by the Federal Confidentiality of Alcohol and Drug Abuse Patient Records regulations: The Federal rules restrict any use of the information to criminally investigate or prosecute any alcohol or drug abuse patient.[facility] Center[facility] the event this information is protected by the Federal Confidentiality of Alcohol and Drug Abuse Patient Records regulations: The Federal rules restrict any use of the information to criminally investigate or prosecute any alcohol or drug abuse patient.[facility] the event this information is protected by the Federal Confidentiality of Alcohol and Drug Abuse Patient Records regulations: The Federal rules restrict any use of the information to criminally investigate or prosecute any alcohol or drug abuse patient.[facility] Center[facility] the event this information is protected by the Federal Confidentiality of Alcohol and Drug Abuse Patient Records regulations: The Federal rules restrict any use of the information to criminally investigate or prosecute any alcohol or drug abuse patient.[facility] Center[facility] the event this information is protected by the Federal Confidentiality of Alcohol and Drug Abuse Patient Records regulations: The Federal rules restrict any use of the information to criminally investigate or prosecute any alcohol or drug abuse patient.[facility] Center[facility] the event this information is protected by the Federal Confidentiality of Alcohol and Drug Abuse Patient Records regulations: The Federal rules restrict any use of the information to criminally investigate or prosecute any alcohol or drug abuse patient.[facility] CenterIn the event this information is protected by the Federal Confidentiality of Alcohol and Drug Abuse Patient Records regulations: The Federal rules restrict any use of the information to criminally investigate or prosecute any alcohol or drug abuse patient.[facility] CenterIn the event this information is protected by the Federal Confidentiality of Alcohol and Drug Abuse Patient Records regulations: The Federal rules restrict any use of the information to criminally investigate or prosecute any alcohol or drug abuse patient.[facility] the event this information is protected by the Federal Confidentiality of Alcohol and Drug Abuse Patient Records regulations: The Federal rules restrict any use of the information to criminally investigate or prosecute any alcohol or drug abuse patient.[facility] Center[facility] the event this information is protected by the Federal Confidentiality of Alcohol and Drug Abuse Patient Records regulations: The Federal rules restrict any use of the information to criminally investigate or prosecute any alcohol or drug abuse patient.[facility] CenterIn the event this information is protected by the Federal Confidentiality of Alcohol and Drug Abuse Patient Records regulations: The Federal rules restrict any use of the information to criminally investigate or prosecute any alcohol or drug abuse patient.[facility] CenterIn the event this information is protected by the Federal Confidentiality of Alcohol and Drug Abuse Patient Records regulations: The Federal rules restrict any use of the information to criminally investigate or prosecute any alcohol or drug abuse patient.[facility] the event this information is protected by the Federal Confidentiality of Alcohol and Drug Abuse Patient Records regulations: The Federal rules restrict any use of the information to criminally investigate or prosecute any alcohol or drug abuse patient.[facility] Center[facility] the event this information is protected by the Federal Confidentiality of Alcohol and Drug Abuse Patient Records regulations: The Federal rules restrict any use of the information to criminally investigate or prosecute any alcohol or drug abuse patient.[facility] CenterIn the event this information is protected by the Federal Confidentiality of Alcohol and Drug Abuse Patient Records regulations: The Federal rules restrict any use of the information to criminally investigate or prosecute any alcohol or drug abuse patient.[facility] CenterIn the event this information is protected by the Federal Confidentiality of Alcohol and Drug Abuse Patient Records regulations: The Federal rules restrict any use of the information to criminally investigate or prosecute any alcohol or drug abuse patient.[facility]In the event this information is protected by the Federal Confidentiality of Alcohol and Drug Abuse Patient Records regulations: The Federal rules restrict any use of the information to criminally investigate or prosecute any alcohol or drug abuse patient.[facility] CenterIn the event this information is protected by the Federal Confidentiality of Alcohol and Drug Abuse Patient Records regulations: The Federal rules restrict any use of the information to criminally investigate or prosecute any alcohol or drug abuse patient.[facility] CenterIn the event this information is protected by the Federal Confidentiality of Alcohol and Drug Abuse Patient Records regulations: The Federal rules restrict any use of the information to criminally investigate or prosecute any alcohol or drug abuse patient.[facility] CenterIn the event this information is protected by the Federal Confidentiality of Alcohol and Drug Abuse Patient Records regulations: The Federal rules restrict any use of the information to criminally investigate or prosecute any alcohol or drug abuse patient.[facility] CenterIn the event this information is protected by the Federal Confidentiality of Alcohol and Drug Abuse Patient Records regulations: The Federal rules restrict any use of the information to criminally investigate or prosecute any alcohol or drug abuse patient.[facility] CenterIn the event this information is protected by the Federal Confidentiality of Alcohol and Drug Abuse Patient Records regulations: The Federal rules restrict any use of the information to criminally investigate or prosecute any alcohol or drug abuse patient.[facility] CenterIn the event this information is protected by the Federal Confidentiality of Alcohol and Drug Abuse Patient Records regulations: The Federal rules restrict any use of the information to criminally investigate or prosecute any alcohol or drug abuse patient.[facility] CenterIn the event this information is protected by the Federal Confidentiality of Alcohol and Drug Abuse Patient Records regulations: The Federal rules restrict any use of the information to criminally investigate or prosecute any alcohol or drug abuse patient.[facility] CenterIn the event this information is protected by the Federal Confidentiality of Alcohol and Drug Abuse Patient Records regulations: The Federal rules restrict any use of the information to criminally investigate or prosecute any alcohol or drug abuse patient.[facility] CenterIn the event this information is protected by the Federal Confidentiality of Alcohol and Drug Abuse Patient Records regulations: The Federal rules restrict any use of the information to criminally investigate or prosecute any alcohol or drug abuse patient.[facility] CenterIn the event this information is protected by the Federal Confidentiality of Alcohol and Drug Abuse Patient Records regulations: The Federal rules restrict any use of the information to criminally investigate or prosecute any alcohol or drug abuse patient.[facility] CenterIn the event this information is protected by the Federal Confidentiality of Alcohol and Drug Abuse Patient Records regulations: The Federal rules restrict any use of the information to criminally investigate or prosecute any alcohol or drug abuse patient.[facility] CenterIn the event this information is protected by the Federal Confidentiality of Alcohol and Drug Abuse Patient Records regulations: The Federal rules restrict any use of the information to criminally investigate or prosecute any alcohol or drug abuse patient.[facility] CenterIn the event this information is protected by the Federal Confidentiality of Alcohol and Drug Abuse Patient Records regulations: The Federal rules restrict any use of the information to criminally investigate or prosecute any alcohol or drug abuse patient.[facility] CenterIn the event this information is protected by the Federal Confidentiality of Alcohol and Drug Abuse Patient Records regulations: The Federal rules restrict any use of the information to criminally investigate or prosecute any alcohol or drug abuse patient.[facility] CenterIn the event this information is protected by the Federal Confidentiality of Alcohol and Drug Abuse Patient Records regulations: The Federal rules restrict any use of the information to criminally investigate or prosecute any alcohol or drug abuse patient.[facility] CenterIn the event this information is protected by the Federal Confidentiality of Alcohol and Drug Abuse Patient Records regulations: The Federal rules restrict any use of the information to criminally investigate or prosecute any alcohol or drug abuse patient.[facility] CenterIn the event this information is protected by the Federal Confidentiality of Alcohol and Drug Abuse Patient Records regulations: The Federal rules restrict any use of the information to criminally investigate or prosecute any alcohol or drug abuse patient.[facility] CenterIn the event this information is protected by the Federal Confidentiality of Alcohol and Drug Abuse Patient Records regulations: The Federal rules restrict any use of the information to criminally investigate or prosecute any alcohol or drug abuse patient.[facility] CenterIn the event this information is protected by the Federal Confidentiality of Alcohol and Drug Abuse Patient Records regulations: The Federal rules restrict any use of the information to criminally investigate or prosecute any alcohol or drug abuse patient.[facility] CenterIn the event this information is protected by the Federal Confidentiality of Alcohol and Drug Abuse Patient Records regulations: The Federal rules restrict any use of the information to criminally investigate or prosecute any alcohol or drug abuse patient.[facility] CenterIn the event this information is protected by the Federal Confidentiality of Alcohol and Drug Abuse Patient Records regulations: The Federal rules restrict any use of the information to criminally investigate or prosecute any alcohol or drug abuse patient.[facility] CenterIn the event this information is protected by the Federal Confidentiality of Alcohol and Drug Abuse Patient Records regulations: The Federal rules restrict any use of the information to criminally investigate or prosecute any alcohol or drug abuse patient.[facility] CenterIn the event this information is protected by the Federal Confidentiality of Alcohol and Drug Abuse Patient Records regulations: The Federal rules restrict any use of the information to criminally investigate or prosecute any alcohol or drug abuse patient.[facility] CenterIn the event this information is protected by the Federal Confidentiality of Alcohol and Drug Abuse Patient Records regulations: The Federal rules restrict any use of the information to criminally investigate or prosecute any alcohol or drug abuse patient.[facility] CenterIn the event this information is protected by the Federal Confidentiality of Alcohol and Drug Abuse Patient Records regulations: The Federal rules restrict any use of the information to criminally investigate or prosecute any alcohol or drug abuse patient.[facility] CenterIn the event this information is protected by the Federal Confidentiality of Alcohol and Drug Abuse Patient Records regulations: The Federal rules restrict any use of the information to criminally investigate or prosecute any alcohol or drug abuse patient.[facility]In the event this information is protected by the Federal Confidentiality of Alcohol and Drug Abuse Patient Records regulations: The Federal rules restrict any use of the information to criminally investigate or prosecute any alcohol or drug abuse patient.[facility] CenterIn the event this information is protected by the Federal Confidentiality of Alcohol and Drug Abuse Patient Records regulations: The Federal rules restrict any use of the information to criminally investigate or prosecute any alcohol or drug abuse patient.[facility]In the event this information is protected by the Federal Confidentiality of Alcohol and Drug Abuse Patient Records regulations: The Federal rules restrict any use of the information to criminally investigate or prosecute any alcohol or drug abuse patient.[facility] CenterIn the event this information is protected by the Federal Confidentiality of Alcohol and Drug Abuse Patient Records regulations: The Federal rules restrict any use of the information to criminally investigate or prosecute any alcohol or drug abuse patient.[facility] CenterIn the event this information is protected by the Federal Confidentiality of Alcohol and Drug Abuse Patient Records regulations: The Federal rules restrict any use of the information to criminally investigate or prosecute any alcohol or drug abuse patient.[facility] CenterIn the event this information is protected by the Federal Confidentiality of Alcohol and Drug Abuse Patient Records regulations: The Federal rules restrict any use of the information to criminally investigate or prosecute any alcohol or drug abuse patient.[facility] CenterIn the event this information is protected by the Federal Confidentiality of Alcohol and Drug Abuse Patient Records regulations: The Federal rules restrict any use of the information to criminally investigate or prosecute any alcohol or drug abuse patient.[facility]In the event this information is protected by the Federal Confidentiality of Alcohol and Drug Abuse Patient Records regulations: The Federal rules restrict any use of the information to criminally investigate or prosecute any alcohol or drug abuse patient.[facility] CenterIn the event this information is protected by the Federal Confidentiality of Alcohol and Drug Abuse Patient Records regulations: The Federal rules restrict any use of the information to criminally investigate or prosecute any alcohol or drug abuse patient.[facility] the event this information is protected by the Federal Confidentiality of Alcohol and Drug Abuse Patient Records regulations: The Federal rules restrict any use of the information to criminally investigate or prosecute any alcohol or drug abuse patient.[facility] CenterIn the event this information is protected by the Federal Confidentiality of Alcohol and Drug Abuse Patient Records regulations: The Federal rules restrict any use of the information to criminally investigate or prosecute any alcohol or drug abuse patient.[facility]In the event this information is protected by the Federal Confidentiality of Alcohol and Drug Abuse Patient Records regulations: The Federal rules restrict any use of the information to criminally investigate or prosecute any alcohol or drug abuse patient.[facility]In the event this information is protected by the Federal Confidentiality of Alcohol and Drug Abuse Patient Records regulations: The Federal rules restrict any use of the information to criminally investigate or prosecute any alcohol or drug abuse patient.[facility]In the event this information is protected by the Federal Confidentiality of Alcohol and Drug Abuse Patient Records regulations: The Federal rules restrict any use of the information to criminally investigate or prosecute any alcohol or drug abuse patient.[facility]In the event this information is protected by the Federal Confidentiality of Alcohol and Drug Abuse Patient Records regulations: The Federal rules restrict any use of the information to criminally investigate or prosecute any alcohol or drug abuse patient.[facility]In the event this information is protected by the Federal Confidentiality of Alcohol and Drug Abuse Patient Records regulations: The Federal rules restrict any use of the information to criminally investigate or prosecute any alcohol or drug abuse patient.[facility]In the event this information is protected by the Federal Confidentiality of Alcohol and Drug Abuse Patient Records regulations: The Federal rules restrict any use of the information to criminally investigate or prosecute any alcohol or drug abuse patient.[facility]In the event this information is protected by the Federal Confidentiality of Alcohol and Drug Abuse Patient Records regulations: The Federal rules restrict any use of the information to criminally investigate or prosecute any alcohol or drug abuse patient.[facility]In the event this information is protected by the Federal Confidentiality of Alcohol and Drug Abuse Patient Records regulations: The Federal rules restrict any use of the information to criminally investigate or prosecute any alcohol or drug abuse patient.[facility]In the event this information is protected by the Federal Confidentiality of Alcohol and Drug Abuse Patient Records regulations: The Federal rules restrict any use of the information to criminally investigate or prosecute any alcohol or drug abuse patient.[facility]In the event this information is protected by the Federal Confidentiality of Alcohol and Drug Abuse Patient Records regulations: The Federal rules restrict any use of the information to criminally investigate or prosecute any alcohol or drug abuse patient.[facility]In the event this information is protected by the Federal Confidentiality of Alcohol and Drug Abuse Patient Records regulations: The Federal rules restrict any use of the information to criminally investigate or prosecute any alcohol or drug abuse patient.[facility]In the event this information is protected by the Federal Confidentiality of Alcohol and Drug Abuse Patient Records regulations: The Federal rules restrict any use of the information to criminally investigate or prosecute any alcohol or drug abuse patient.[facility]In the event this information is protected by the Federal Confidentiality of Alcohol and Drug Abuse Patient Records regulations: The Federal rules restrict any use of the information to criminally investigate or prosecute any alcohol or drug abuse patient.[facility]In the event this information is protected by the Federal Confidentiality of Alcohol and Drug Abuse Patient Records regulations: The Federal rules restrict any use of the information to criminally investigate or prosecute any alcohol or drug abuse patient.[facility]In the event this information is protected by the Federal Confidentiality of Alcohol and Drug Abuse Patient Records regulations: The Federal rules restrict any use of the information to criminally investigate or prosecute any alcohol or drug abuse patient.[facility]In the event this information is protected by the Federal Confidentiality of Alcohol and Drug Abuse Patient Records regulations: The Federal rules restrict any use of the information to criminally investigate or prosecute any alcohol or drug abuse patient.[facility]In the event this information is protected by the Federal Confidentiality of Alcohol and Drug Abuse Patient Records regulations: The Federal rules restrict any use of the information to criminally investigate or prosecute any alcohol or drug abuse patient.[facility]In the event this information is protected by the Federal Confidentiality of Alcohol and Drug Abuse Patient Records regulations: The Federal rules restrict any use of the information to criminally investigate or prosecute any alcohol or drug abuse patient.[facility]In the event this information is protected by the Federal Confidentiality of Alcohol and Drug Abuse Patient Records regulations: The Federal rules restrict any use of the information to criminally investigate or prosecute any alcohol or drug abuse patient.[facility]In the event this information is protected by the Federal Confidentiality of Alcohol and Drug Abuse Patient Records regulations: The Federal rules restrict any use of the information to criminally investigate or prosecute any alcohol or drug abuse patient.[facility]In the event this information is protected by the Federal Confidentiality of Alcohol and Drug Abuse Patient Records regulations: The Federal rules restrict any use of the information to criminally investigate or prosecute any alcohol or drug abuse patient.[facility]In the event this information is protected by the Federal Confidentiality of Alcohol and Drug Abuse Patient Records regulations: The Federal rules restrict any use of the information to criminally investigate or prosecute any alcohol or drug abuse patient.[facility]In the event this information is protected by the Federal Confidentiality of Alcohol and Drug Abuse Patient Records regulations: The Federal rules restrict any use of the information to criminally investigate or prosecute any alcohol or drug abuse patient.[facility]In the event this information is protected by the Federal Confidentiality of Alcohol and Drug Abuse Patient Records regulations: The Federal rules restrict any use of the information to criminally investigate or prosecute any alcohol or drug abuse patient.[facility]In the event this information is protected by the Federal Confidentiality of Alcohol and Drug Abuse Patient Records regulations: The Federal rules restrict any use of the information to criminally investigate or prosecute any alcohol or drug abuse patient.[facility]In the event this information is protected by the Federal Confidentiality of Alcohol and Drug Abuse Patient Records regulations: The Federal rules restrict any use of the information to criminally investigate or prosecute any alcohol or drug abuse patient.[facility]In the event this information is protected by the Federal Confidentiality of Alcohol and Drug Abuse Patient Records regulations: The Federal rules restrict any use of the information to criminally investigate or prosecute any alcohol or drug abuse patient.[facility]In the event this information is protected by the Federal Confidentiality of Alcohol and Drug Abuse Patient Records regulations: The Federal rules restrict any use of the information to criminally investigate or prosecute any alcohol or drug abuse patient.[facility]In the event this information is protected by the Federal Confidentiality of Alcohol and Drug Abuse Patient Records regulations: The Federal rules restrict any use of the information to criminally investigate or prosecute any alcohol or drug abuse patient.[facility]In the event this information is protected by the Federal Confidentiality of Alcohol and Drug Abuse Patient Records regulations: The Federal rules restrict any use of the information to criminally investigate or prosecute any alcohol or drug abuse patient.[facility]In the event this information is protected by the Federal Confidentiality of Alcohol and Drug Abuse Patient Records regulations: The Federal rules restrict any use of the information to criminally investigate or prosecute any alcohol or drug abuse patient.[facility]In the event this information is protected by the Federal Confidentiality of Alcohol and Drug Abuse Patient Records regulations: The Federal rules restrict any use of the information to criminally investigate or prosecute any alcohol or drug abuse patient.[facility]In the event this information is protected by the Federal Confidentiality of Alcohol and Drug Abuse Patient Records regulations: The Federal rules restrict any use of the information to criminally investigate or prosecute any alcohol or drug abuse patient.[facility]In the event this information is protected by the Federal Confidentiality of Alcohol and Drug Abuse Patient Records regulations: The Federal rules restrict any use of the information to criminally investigate or prosecute any alcohol or drug abuse patient.[facility]In the event this information is protected by the Federal Confidentiality of Alcohol and Drug Abuse Patient Records regulations: The Federal rules restrict any use of the information to criminally investigate or prosecute any alcohol or drug abuse patient.[facility]In the event this information is protected by the Federal Confidentiality of Alcohol and Drug Abuse Patient Records regulations: The Federal rules restrict any use of the information to criminally investigate or prosecute any alcohol or drug abuse patient.[facility]In the event this information is protected by the Federal Confidentiality of Alcohol and Drug Abuse Patient Records regulations: The Federal rules restrict any use of the information to criminally investigate or prosecute any alcohol or drug abuse patient.[facility]In the event this information is protected by the Federal Confidentiality of Alcohol and Drug Abuse Patient Records regulations: The Federal rules restrict any use of the information to criminally investigate or prosecute any alcohol or drug abuse patient.[facility]In the event this information is protected by the Federal Confidentiality of Alcohol and Drug Abuse Patient Records regulations: The Federal rules restrict any use of the information to criminally investigate or prosecute any alcohol or drug abuse patient.[facility]In the event this information is protected by the Federal Confidentiality of Alcohol and Drug Abuse Patient Records regulations: The Federal rules restrict any use of the information to criminally investigate or prosecute any alcohol or drug abuse patient.[facility]In the event this information is protected by the Federal Confidentiality of Alcohol and Drug Abuse Patient Records regulations: The Federal rules restrict any use of the information to criminally investigate or prosecute any alcohol or drug abuse patient.[facility]In the event this information is protected by the Federal Confidentiality of Alcohol and Drug Abuse Patient Records regulations: The Federal rules restrict any use of the information to criminally investigate or prosecute any alcohol or drug abuse patient.[facility]In the event this information is protected by the Federal Confidentiality of Alcohol and Drug Abuse Patient Records regulations: The Federal rules restrict any use of the information to criminally investigate or prosecute any alcohol or drug abuse patient.[facility]In the event this information is protected by the Federal Confidentiality of Alcohol and Drug Abuse Patient Records regulations: The Federal rules restrict any use of the information to criminally investigate or prosecute any alcohol or drug abuse patient.[facility]In the event this information is protected by the Federal Confidentiality of Alcohol and Drug Abuse Patient Records regulations: The Federal rules restrict any use of the information to criminally investigate or prosecute any alcohol or drug abuse patient.[facility]In the event this information is protected by the Federal Confidentiality of Alcohol and Drug Abuse Patient Records regulations: The Federal rules restrict any use of the information to criminally investigate or prosecute any alcohol or drug abuse patient.[facility]In the event this information is protected by the Federal Confidentiality of Alcohol and Drug Abuse Patient Records regulations: The Federal rules restrict any use of the information to criminally investigate or prosecute any alcohol or drug abuse patient.[facility]In the event this information is protected by the Federal Confidentiality of Alcohol and Drug Abuse Patient Records regulations: The Federal rules restrict any use of the information to criminally investigate or prosecute any alcohol or drug abuse patient.[facility] the event this information is protected by the Federal Confidentiality of Alcohol and Drug Abuse Patient Records regulations: The Federal rules restrict any use of the information to criminally investigate or prosecute any alcohol or drug abuse patient.[facility]In the event this information is protected by the Federal Confidentiality of Alcohol and Drug Abuse Patient Records regulations: The Federal rules restrict any use of the information to criminally investigate or prosecute any alcohol or drug abuse patient.[facility] CenterIn the event this information is protected by the Federal Confidentiality of Alcohol and Drug Abuse Patient Records regulations: The Federal rules restrict any use of the information to criminally investigate or prosecute any alcohol or drug abuse patient.[facility] CenterIn the event this information is protected by the Federal Confidentiality of Alcohol and Drug Abuse Patient Records regulations: The Federal rules restrict any use of the information to criminally investigate or prosecute any alcohol or drug abuse patient.[facility] CenterIn the event this information is protected by the Federal Confidentiality of Alcohol and Drug Abuse Patient Records regulations: The Federal rules restrict any use of the information to criminally investigate or prosecute any alcohol or drug abuse patient.[facility] CenterIn the event this information is protected by the Federal Confidentiality of Alcohol and Drug Abuse Patient Records regulations: The Federal rules restrict any use of the information to criminally investigate or prosecute any alcohol or drug abuse patient.[facility] CenterIn the event this information is protected by the Federal Confidentiality of Alcohol and Drug Abuse Patient Records regulations: The Federal rules restrict any use of the information to criminally investigate or prosecute any alcohol or drug abuse patient.[facility] CenterIn the event this information is protected by the Federal Confidentiality of Alcohol and Drug Abuse Patient Records regulations: The Federal rules restrict any use of the information to criminally investigate or prosecute any alcohol or drug abuse patient.[facility] CenterIn the event this information is protected by the Federal Confidentiality of Alcohol and Drug Abuse Patient Records regulations: The Federal rules restrict any use of the information to criminally investigate or prosecute any alcohol or drug abuse patient.[facility] CenterIn the event this information is protected by the Federal Confidentiality of Alcohol and Drug Abuse Patient Records regulations: The Federal rules restrict any use of the information to criminally investigate or prosecute any alcohol or drug abuse patient.[facility] CenterIn the event this information is protected by the Federal Confidentiality of Alcohol and Drug Abuse Patient Records regulations: The Federal rules restrict any use of the information to criminally investigate or prosecute any alcohol or drug abuse patient.[facility] CenterIn the event this information is protected by the Federal Confidentiality of Alcohol and Drug Abuse Patient Records regulations: The Federal rules restrict any use of the information to criminally investigate or prosecute any alcohol or drug abuse patient.[facility] CenterIn the event this information is protected by the Federal Confidentiality of Alcohol and Drug Abuse Patient Records regulations: The Federal rules restrict any use of the information to criminally investigate or prosecute any alcohol or drug abuse patient.[facility] CenterIn the event this information is protected by the Federal Confidentiality of Alcohol and Drug Abuse Patient Records regulations: The Federal rules restrict any use of the information to criminally investigate or prosecute any alcohol or drug abuse patient.[facility] CenterIn the event this information is protected by the Federal Confidentiality of Alcohol and Drug Abuse Patient Records regulations: The Federal rules restrict any use of the information to criminally investigate or prosecute any alcohol or drug abuse patient.[facility] CenterIn the event this information is protected by the Federal Confidentiality of Alcohol and Drug Abuse Patient Records regulations: The Federal rules restrict any use of the information to criminally investigate or prosecute any alcohol or drug abuse patient.[facility] CenterIn the event this information is protected by the Federal Confidentiality of Alcohol and Drug Abuse Patient Records regulations: The Federal rules restrict any use of the information to criminally investigate or prosecute any alcohol or drug abuse patient.[facility] CenterIn the event this information is protected by the Federal Confidentiality of Alcohol and Drug Abuse Patient Records regulations: The Federal rules restrict any use of the information to criminally investigate or prosecute any alcohol or drug abuse patient.[facility] CenterIn the event this information is protected by the Federal Confidentiality of Alcohol and Drug Abuse Patient Records regulations: The Federal rules restrict any use of the information to criminally investigate or prosecute any alcohol or drug abuse patient.[facility] CenterIn the event this information is protected by the Federal Confidentiality of Alcohol and Drug Abuse Patient Records regulations: The Federal rules restrict any use of the information to criminally investigate or prosecute any alcohol or drug abuse patient.[facility] CenterIn the event this information is protected by the Federal Confidentiality of Alcohol and Drug Abuse Patient Records regulations: The Federal rules restrict any use of the information to criminally investigate or prosecute any alcohol or drug abuse patient.[facility] CenterIn the event this information is protected by the Federal Confidentiality of Alcohol and Drug Abuse Patient Records regulations: The Federal rules restrict any use of the information to criminally investigate or prosecute any alcohol or drug abuse patient.[facility] CenterIn the event this information is protected by the Federal Confidentiality of Alcohol and Drug Abuse Patient Records regulations: The Federal rules restrict any use of the information to criminally investigate or prosecute any alcohol or drug abuse patient.[facility] Reason for Visit (unrecogniz ed section and content) Reason Comments Follow Up Specialty Diagnoses / Procedures Referred By Contac t Referred To Contact Diagnoses Encounter for long-term (current) use of medications Procedures OFFICE/OUTPATIENT NEW HIGH MDM 60 MINUTES Clayton Granados, GERIATRIC SOCIAL WORK PROFESSOR.[employer]URING M[employer] [address] [place] [address] Phone: tel: fax: Referral ID Status Reason Start Date Expiration Date V isits Requested Visits Authorized [id number] Closed PCP Requested Referral 01/11/2025 01/11/2026 1 1 Reason Comments Follow Up Specialty Diagnoses / Procedures Referred By Contac t Referred To Contact Psychiatry / ADULT PSYCHIATRY Diagnoses med check Procedures VIDEO PSYC/PSYL EST Clayton Granados, GERIATRIC SOCIAL WORK PROFESSOR.[employer]URING M[employer]IGHT [address] [place] [address] Clayton Granados, GERIATRIC SOCIAL WORK PROFESSOR.MANUFACTURING M[employer]IGHT [address] [place] [address] Referral ID Status Reason Start Date Expiration Date V isits Requested Visits Authorized [id number] New Request 05/18/2024 08/16/2024 [address] Reason Comments Results 10/10 Reason Comments New Patient Evaluation Specialty Diagnoses / Procedures Referred By Contac t Referred To Contact Diagnoses Panic attacks Bipolar affective disorder, current episode mixed, current episode severity unspecified (HCC) Depressive disorder Procedures CONSULT TO PSYCHIATRY OFFICE/OUTPATIENT NEW HIGH MDM 60-74 MINUTES Cosme Boland DO [address] [place] [address] Referral ID Status Reason Start Date Expiration Date Visits Requested Visits Authorized [id number] Pending Review PCP Requested Referral 07/20/2021 07/20/2022 [...] Refill Request 02/11/2022 Reason Comments Follow Up 2 months Reason Comments No Show 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 Date Comments Refill Request 05/10/2022 Reason Comments Refill Request 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 Date Comments Refill Request 07/01/2022 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 Date Comments Refill Request 07/05/2022 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 Date Comments Refill Request 08/08/2022 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 Date Comments ECT Referral 08/24/2022 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 Juan Manuel Byrd Reason Comments Consult Reason Comments Recheck Hospital follow up h ypokalemia 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 Date Comments Refill Request 03/06/2025 Reason Comments Anticoagulation - Initial Consult Care Teams (unrecognized sec tion and content) Doctor Of Optometry Relationship Specialty Start Date End Date Cosme Boland, DO [address] [place] [address] PCP - General Family Practice 10/29/15 Doctor Of Optometry Relationship Specialty Start Date End Date Cosme Boland, DO [address] [place] [address] PCP - General Family Practice 10/29/15 Doctor Of Optometry Relationship Specialty Start Date End Date Cosme Boland, DO [address] [place] [address] PCP - General Family Practice 10/29/15 Doctor Of Optometry Relationship Specialty Start Date End Date Cosme Boland, DO [address] [facility] [place] [address] PCP - General Family Practice 10/29/15 Doctor Of Optometry Relationship Specialty Start Date End Date Cosme Boland, DO [address] [facility] [place] [address] PCP - General Family Practice 10/29/15 Doctor Of Optometry Relationship Specialty Start Date End Date Cosme Boland, DO [address] [place] [address] PCP - General Family Practice 10/29/15 Doctor Of Optometry Relationship Specialty Start Date End Date Cosme Boland, DO [address] [place] [address] PCP - General Family Practice 10/29/15 Doctor Of Optometry Relationship Specialty Start Date End Date Cosme Boland, DO [address] [place] [address] PCP - General Family Practice 10/29/15 Doctor Of Optometry Relationship Specialty Start Date End Date Cosme Boland, DO [address] [place] [address] PCP - General Family Practice 10/29/15 Doctor Of Optometry Relationship Specialty Start Date End Date Cosme Boland, DO [address] [place] [address] PCP - General Family Practice 10/29/15 Doctor Of Optometry Relationship Specialty Start Date End Date Cosme Boland, DO [address] [place] [address] PCP - General Family Practice 10/29/15 Doctor Of Optometry Relationship Specialty Start Date End Date Cosme Boland, DO [address] [place] [address] PCP - General Family Practice 10/29/15 Doctor Of Optometry Relationship Specialty Start Date End Date Cosme Boland, DO [address] [place] [address] PCP - General Family Practice 10/29/15 Doctor Of Optometry Relationship Specialty Start Date End Date Cosme Boland, DO [address] [place] [address] PCP - General Family Practice 10/29/15 Doctor Of Optometry Relationship Specialty Start Date End Date Cosme Boland, DO [address] [place] [address] PCP - General Family Medicine 10/29/15 Doctor Of Optometry Relationship Specialty Start Date End Date Cosme Boland, DO [address] [place] [address] PCP - General Family Medicine 10/29/15 Doctor Of Optometry Relationship Specialty Start Date End Date Cosme Boland, DO [address] [place] [address] PCP - General Family Medicine 10/29/15 Doctor Of Optometry Relationship Specialty Start Date End Date Cosme Boland, DO [address] [place] [address] PCP - General Family Medicine 10/29/15 Doctor Of Optometry Relationship Specialty Start Date End Date Cosme Boland, DO [address] [place] [address] PCP - General Family Medicine 10/29/15 Doctor Of Optometry Relationship Specialty Start Date End Date Cosme Boland, DO [address] [place] [address] PCP - General Family Medicine 10/29/15 Doctor Of Optometry Relationship Specialty Start Date End Date Cosme Boland, DO [address] [place] [address] PCP - General Family Medicine 10/29/15 Doctor Of Optometry Relationship Specialty Start Date End Date Cosme Boalnd, DO [address] [place] [address] PCP - General Family Medicine 10/29/15 Doctor Of Optometry Relationship Specialty Start Date End Date Cosme Boland, DO [address] [place] [address] PCP - General Family Medicine 10/29/15 Doctor Of Optometry Relationship Specialty Start Date End Date Cosme Boland, DO [address] [place] [address] PCP - General Family Medicine 10/29/15 Doctor Of Optometry Relationship Specialty Start Date End Date Cosme Boland, DO [address] [place] [address] PCP - General Family Medicine 10/29/15 Ariella Cortes, RN Registered Nurse Psychiatry 08/30/22 Doctor Of Optometry Relationship Specialty Start Date End Date Cosme Boland, DO [address] [place] [address] PCP - General Family Medicine 10/29/15 Ariella Cortes, RN Registered Nurse Psychiatry 08/30/22 Doctor Of Optometry Relationship Specialty Start Date End Date Cosme Boland, DO [address] [place] [address] PCP - General Family Medicine 10/29/15 Ariella Cortes, RN Registered Nurse Psychiatry 08/30/22 Doctor Of Optometry Relationship Specialty Start Date End Date Cosme Boland, DO [address] [place] [address] PCP - General Family Medicine 10/29/15 Ariella Cortes, RN Registered Nurse Psychiatry 08/30/22 Doctor Of Optometry Relationship Specialty Start Date End Date Cosme Boland, DO [address] [place] [address] PCP - General Family Medicine 10/29/15 Ariella Cortes, RN Registered Nurse Psychiatry 08/30/22 Doctor Of Optometry Relationship Specialty Start Date End Date Cosme Boland, DO [address] [place] [address] PCP - General Family Medicine 10/29/15 Ariella Cortes, RN Registered Nurse Psychiatry 08/30/22 Doctor Of Optometry Relationship Specialty Start Date End Date Cosme Boland, DO [address] [facility] [place] [address] PCP - General Family Medicine 10/29/15 Ariella Cortes, RN Registered Nurse Psychiatry 08/30/22 Doctor Of Optometry Relationship Specialty Start Date End Date Cosme Boland DO [address] [facility] [place] [address] PCP - General Family Medicine 10/29/15 Ariella Cortes, RN Registered Nurse Psychiatry 08/30/22 Doctor Of Optometry Relationship Specialty Start Date End Date Cosme Boland DO [address] [facility] [place] [address] PCP - General Family Medicine 10/29/15 Ariella Cortes, RN Registered Nurse Psychiatry 08/30/22 Doctor Of Optometry Relationship Specialty Start Date End Date Cosme Boland DO [address] [facility] [place] [address] PCP - General Family Medicine 10/29/15 Ariella Cortes, RN Registered Nurse Psychiatry 08/30/22 Doctor Of Optometry Relationship Specialty Start Date End Date Cosme Boland DO [address] [facility] [place] [address] PCP - General Family Medicine 10/29/15 Ariella Cortes, RN Registered Nurse Psychiatry 08/30/22 Doctor Of Optometry Relationship Specialty Start Date End Date Cosme Boland DO [address] [facility] [place] [address] PCP - General Family Medicine 10/29/15 Ariella Cortes, RN Registered Nurse Psychiatry 08/30/22 Doctor Of Optometry Relationship Specialty Start Date End Date Cosme Boland DO [address] [facility] [place] [address] PCP - General Family Medicine 10/29/15 Ariella Cortes RN Registered Nurse Psychiatry 08/30/22 Doctor Of Optometry Relationship Specialty Start Date End Date Cosme Boland DO [address] [facility] [place] [address] PCP - General Family Medicine 10/29/15 Airella Cortes, RN Registered Nurse Psychiatry 08/30/22 Doctor Of Optometry Relationship Specialty Start Date End Date Cosme Boland DO [address] [facility] [place] [address] PCP - General Family Medicine 10/29/15 Ariella Cortes, RN Registered Nurse Psychiatry 08/30/22 Doctor Of Optometry Relationship Specialty Start Date End Date Cosme Boland DO [address] [facility] [place] [address] PCP - General Family Medicine 10/29/15 Ariella Cortes RN Registered Nurse Psychiatry 08/30/22 Doctor Of Optometry Relationship Specialty Start Date End Date Cosme Boland DO [address] [facility] [place] [address] PCP - General Family Medicine 10/29/15 Ariella Cortes RN Registered Nurse Psychiatry 08/30/22 Doctor Of Optometry Relationship Specialty Start Date End Date Cosme Boland DO [address] [facility] [place] [address] PCP - General Family Medicine 10/29/15 Ariella Cortes, RN Registered Nurse Psychiatry 08/30/22 Doctor Of Optometry Relationship Specialty Start Date End Date Cosme Boland DO [address] [facility] [place] [address] PCP - General Family Medicine 10/29/15 Ariella Cortes, RN Registered Nurse Psychiatry 08/30/22 Doctor Of Optometry Relationship Specialty Start Date End Date Cosme Boland DO [address] [place] [address] PCP - General Family Medicine 10/29/15 Ariella Cortes, RN Registered Nurse Psychiatry 08/30/22 Doctor Of Optometry Relationship Specialty Start Date End Date Cosme Boland DO [address] [place] [address] PCP - General Family Medicine 10/29/15 Doctor Of Optometry Relationship Specialty Start Date End Date Cosme Boland DO [address] [place] [address] PCP - General Family Medicine 10/29/15 Ariella Cortes, RN Registered Nurse Psychiatry 08/30/22 Doctor Of Optometry Relationship Specialty Start Date End Date Cosme Boland DO [address] [facility] [place] [address] PCP - General Family Medicine 10/29/15 Ariella Cortes, RN Registered Nurse Psychiatry 08/30/22 Yesenia Rangel, GERIATRIC SOCIAL WORK PROFESSOR.MANUFACTURING MILLWRIGHT [address] [facility] [place] [address] Gourmet Coffee Attendant Family Medicine 06/03/24 Xochilt Gaston, GERIATRIC SOCIAL WORK PROFESSOR.MANUFACTURING MILLWRIGHT [address] [facility] [place] [address] Gourmet Coffee Attendant Family Medicine 06/03/24 Doctor Of Optometry Relationship Specialty Start Date End Date Cosme Boland DO [address] [facility] [place] [address] PCP - General Family Medicine 10/29/15 Ariella Cortes, RN Registered Nurse Psychiatry 08/30/22 Yesenia Rangel, GERIATRIC SOCIAL WORK PROFESSOR.MANUFACTURING MILLWRIGHT [address] [place] [address] [facility] 06/03/24 Xochilt Gaston, GERIATRIC SOCIAL WORK PROFESSOR.MANUFACTURING MILLWRIGHT [address] [place] [address] [facility] 06/03/24 Doctor Of Optometry Relationship Specialty Start Date End Date Cosme Boland DO [address] [facility] [place] [address] PCP - General Family Medicine 10/29/15 Ariella Cortes RN Registered Nurse Psychiatry 08/30/22 08/07/24 Yesenia Rangel, GERIATRIC SOCIAL WORK PROFESSOR.MANUFACTURING MILLWRIGHT [address] [facility] [place] [address] [facility] 06/03/24 Xochilt Gaston, GERIATRIC SOCIAL WORK PROFESSOR.MANUFACTURING MILLWRIGHT [address] [place] [address] [facility] 06/03/24 Doctor Of Optometry Relationship Specialty Start Date End Date Cosme Boland DO [address] [place] [address] PCP - General Family Medicine 10/29/15 Yesenia Rangel, GERIATRIC SOCIAL WORK PROFESSOR.MANUFACTURING MILLWRIGHT [address] [place] [address] [facility] 06/03/24 Xochilt Gaston, GERIATRIC SOCIAL WORK PROFESSOR.MANUFACTURING MILLWRIGHT [address] [place] [address] [facility] 06/03/24 Doctor Of Optometry Relationship Specialty Start Date End Date Cosme Boland DO [address] [place] [address] PCP - General Family Medicine 10/29/15 Yesenia Rangel, GERIATRIC SOCIAL WORK PROFESSOR.MANUFACTURING MILLWRIGHT [address] [place] [address] Gourmet Coffee Attendant Family [facility] 06/03/24 MarilinXochilt, GERIATRIC SOCIAL WORK PROFESSOR.MANUFACTURING MILLWRIGHT [address] [place] [address] [facility] Doctor Of Optometry Relationship Specialty Start Date End Date Cosme Boland DO [address] [place] [address] PCP - General Family Medicine 10/29/15 Yesenia Rangel, GERIATRIC SOCIAL WORK PROFESSOR.MANUFACTURING MILLWRIGHT [address] [place] [address] Gourmet Coffee Attendant Family [facility] 06/03/24 MarilinXochilt, GERIATRIC SOCIAL WORK PROFESSOR.MANUFACTURING MILLWRIGHT [address] [place] [address] [facility] 06/[facility]/24 Doctor Of Optometry Relationship Specialty Start Date End Date Cosme Boland DO [address] [place] [address] PCP - General Family Medicine 10/29/15 Yesenia Rangel, GERIATRIC SOCIAL WORK PROFESSOR.MANUFACTURING MILLWRIGHT [address] [place] [address] Gourmet Coffee Attendant Family Medicine 06/03/24 Xochilt Gaston, GERIATRIC SOCIAL WORK PROFESSOR.MANUFACTURING MILLWRIGHT [address] [place] [address] Gourmet Coffee Attendant [facility] 06/03/24 Doctor Of Optometry Relationship Specialty Start Date End Date Cosme Boland DO [address] [place] [address] PCP - General Family Medicine 10/29/15 Yesenia Rangel, GERIATRIC SOCIAL WORK PROFESSOR.MANUFACTURING MILLWRIGHT [address] [place] [address] Gourmet Coffee Attendant [facility] 06/03/24 MarilinXochilt, GERIATRIC SOCIAL WORK PROFESSOR.MANUFACTURING MILLWRIGHT [address] [place] [address] [facility]ourmet Coffee [facility] 06/[facility]/24 Doctor Of Optometry Relationship Specialty Start Date End Date Cosme Boland DO [address] [place] [address] PCP - General Family Medicine 10/29/15 Yesenia Rangel, GERIATRIC SOCIAL WORK PROFESSOR.MANUFACTURING MILLWRIGHT [address] [place] [address] [facility]our[facility] Coffee [facility] 06/03/24 MarilinXochilt, GERIATRIC SOCIAL WORK PROFESSOR.MANUFACTURING MILLWRIGHT [address] [place] [address] [facility] Coffee [facility] 06/03/24 Doctor Of Optometry Relationship Specialty Start Date End Date Cosme Boland DO [address] [facility] [place] [address] PCP - General Family Medicine 10/29/15 Yesenia Rangel, GERIATRIC SOCIAL WORK PROFESSOR.MANUFACTURING MILLWRIGHT [address] [place] [address] Gourmet Coffee Attendant Family [facility] 06/03/24 Xochilt Gaston, GERIATRIC SOCIAL WORK PROFESSOR.MANUFACTURING MILLWRIGHT [address] [facility] [place] [address] [facility] 06/03/24 Doctor Of Optometry Relationship Specialty Start Date End Date Cosme Boland DO [address] [facility] [place] [address] PCP - General Family Medicine 10/29/15 Yesenia Rangel, GERIATRIC SOCIAL WORK PROFESSOR.MANUFACTURING MILLWRIGHT [address] [facility] [place] [address] [facility] 06/03/24 Xochilt Gaston, GERIATRIC SOCIAL WORK PROFESSOR.MANUFACTURING MILLWRIGHT [address] [facility] [place] [address] [facility] 06/03/24 Doctor Of Optometry Relationship Specialty Start Date End Date Cosme Boland DO [address] [facility] [place] [address] PCP - General Family Medicine 10/29/15 Yesenia Rangel, GERIATRIC SOCIAL WORK PROFESSOR.MANUFACTURING MILLWRIGHT [address] [facility] [place] [address] [facility] 06/03/24 Xochilt Gaston, GERIATRIC SOCIAL WORK PROFESSOR.MANUFACTURING MILLWRIGHT [address] [facility] [place] [address] [facility] Medicine 06/03/24 Doctor Of Optometry Relationship Specialty Start Date End Date Cosme Boland DO [address] [facility] [place] [address] PCP - General Family Medicine 10/29/15 Yesenia Rangel, GERIATRIC SOCIAL WORK PROFESSOR.MANUFACTURING MILLWRIGHT [address] [facility] [place] [address] Gourmet Coffee AttendantUnitypoint [facility] Medicine 06/03/24 Xochilt Gaston, GERIATRIC SOCIAL WORK PROFESSOR.MANUFACTURING MILLWRIGHT [address] [facility] [place] [address] Gour[facility] Coffee AttendantSt. [facility] 06/03/24 Doctor Of Optometry Relationship Specialty Start Date End Date Cosme Boland DO 1740 [facility] [place] [place] [address] PCP - General Family Medicine 10/29/15 Xochilt Gaston, GERIATRIC SOCIAL WORK PROFESSOR.MANUFACTURING MILLWRIGHT [address] [place] [address] [facility] 06/03/24 Doctor Of Optometry Relationship Specialty Start Date End Date Cosme Boland DO [address] [place] [address] PCP - General Family Medicine 10/29/15 Yesenia Rangel, GERIATRIC SOCIAL WORK PROFESSOR.MANUFACTURING MILLWRIGHT [address] [place] [address] [facility] Medicine 06/03/24 09/14/24 Xochilt Gaston, GERIATRIC SOCIAL WORK PROFESSOR.MANUFACTURING MILLWRIGHT [address] [place] [address] [facility] 06/03/24 Doctor Of Optometry Relationship Specialty Start Date End Date Cosme Boland DO [address] [place] [address] PCP - General Family Medicine 10/29/15 Yesenia Rangel, GERIATRIC SOCIAL WORK PROFESSOR.MANUFACTURING MILLWRIGHT [address] [place] [address] [facility]endantSt[facility] 06/03/24 09/14/24 Xochilt Gaston, GERIATRIC SOCIAL WORK PROFESSOR.MANUFACTURING MILLWRIGHT [address] [place] [address] [facility] Coffee AttendantSt. [facility] 06/03/24 Doctor Of Optometry Relationship Specialty Start Date End Date Cosme Boland DO [address] [place] [address] PCP - General Family Medicine 10/29/15 Xochilt Gaston, GERIATRIC SOCIAL WORK PROFESSOR.MANUFACTURING MILLWRIGHT [address] [place] [address] [facility] 06/03/24 Maggie Putnam MD [address] [place] [address] Internal Medicine 10/02/24 Doctor Of Optometry Relationship Specialty Start Date End Date Cosme Boland DO [address] [place], [place] 394504 [phone] PCP - General Family Medicine 10/29/15 Xochilt Gaston, GERIATRIC SOCIAL WORK PROFESSOR.MANUFACTURING MILLWRIGHT [address] [place] [address] [facility] 06/03/24 Maggie Putnam MD [address] [place] [address] Internal Medicine 10/02/24 Doctor Of Optometry Relationship Specialty Start Date End Date Cosme Boland DO [address] [place] [address] PCP - General Family Medicine 10/29/15 Xochilt Gaston, KAIN.MANUFACTURING MILLWRIGHT [address] [place] [address] Gourmet Coffee Attendant Family Medicine 06/03/24 Maggie Putnam MD [address] [place] [address] Internal Medicine 10/02/24 Doctor Of Optometry Relationship Specialty Start Date End Date Cosme Boland DO [address] [place] [address] PCP - General Family Medicine 10/29/15 Xochilt Gaston, GERIATRIC SOCIAL WORK PROFESSOR.MANUFACTURING MILLWRIGHT [address] [place] [address] Gourmet Coffee Attendant Family Medicine 06/03/24 Maggie Putnam MD [address] [place] [address] Internal Medicine 10/02/24 Doctor Of Optometry Relationship Specialty Start Date End Date Cosme Boland DO [address] [place] [address] PCP - General Family Medicine 10/29/15 Xochilt Gaston, GERIATRIC SOCIAL WORK PROFESSOR.MANUFACTURING MILLWRIGHT [address] [place] [address] Gourmet Coffee Attendant Family [facility] 06/03/24 Maggie Putnam MD [address] [address] Internal Medicine 10/02/24 Doctor Of Optometry Relationship Specialty Start Date End Date Cosme Boland DO [address] [place] [address] PCP - General Family Medicine 10/29/15 Xochilt Gaston APRN.MANUFACTURING MILLWRIGHT 1740 [facility] [place] [place] [address] Gourmet Coffee Attendant Family Medicine 06/03/24 Maggie Putnam MD [facility] [place] [address] Internal Medicine 10/02/24 ProviderLarry MD Gourmet Coffee Attendant 10/12/24 10/26/24 Doctor Of Optometry Relationship Specialty Start Date End Date Cosme Boland DO [address]40 [facility] [place] [place] [address] PCP - General Family Medicine 10/29/15 Xochilt Gaston, GERIATRIC SOCIAL WORK PROFESSOR.MANUFACTURING MILLWRIGHT [address] [place] [address] Gourmet Coffee Attendant Family Medicine 06/03/24 Maggie Putnam MD [address] [place] [address] Internal Medicine 10/02/24 Doctor Of Optometry Relationship Specialty Start Date End Date Cosme Boland DO [address] [place] [address] PCP - General Family Medicine 11/28/24 Xochilt Gaston APRN.MANUFACTURING MILLWRIGHT [address] [facility] [place] [place] [address] Gourmet Coffee Attendant Family [facility] 06/03/24 Maggie Putnam MD [address] [place] [address] Internal Medicine 10/02/24 Lee Lou MD [address] [place] [address] Night Coverage Internal Medicine 11/28/24 11/28/24 Doctor Of Optometry Relationship Specialty Start Date End Date Xochilt Gaston GERIATRIC SOCIAL WORK PROFESSOR.MANUFACTURING MILLWRIGHT [address] [place] [address] [facility] 06/03/24 Maggie Putnam MD [address] [place] [address] Internal Medicine 10/02/24 Doctor Of Optometry Relationship Specialty Start Date End Date Cosme Boland DO [address] [place] [address] PCP - General Family Medicine 11/28/24 Xochilt Gaston, GERIATRIC SOCIAL WORK PROFESSOR.MANUFACTURING MILLWRIGHT [address] [place] [address] Gourmet Coffee Attendant Family [facility] 06/03/24 Maggie Putnam MD [address] [place] [address] Internal Medicine 10/02/24 Ed Saxena, GERIATRIC SOCIAL WORK PROFESSOR.MANUFACTURING MILLWRIGHT [address] [place] [address] Gourmet Coffee Attendant Family [facility] 12/10/24 Doctor Of Optometry Relationship Specialty Start Date End Date Cosme Boland DO [address] [place] [address] PCP - General Family Medicine 11/28/24 Xochilt Gsaton, GERIATRIC SOCIAL WORK PROFESSOR.MANUFACTURING MILLWRIGHT [address] [place] [address] Gourmet Coffee Attendant Family [facility] 06/03/24 Maggie Putnam MD [address] [place] [address] 932284 Internal Medicine 10/02/24 Ed Saxena, GERIATRIC SOCIAL WORK PROFESSOR.MANUFACTURING MILLWRIGHT [address] [place] [address] Gourmet Coffee Attendant Family [facility] 12/10/24 Keesha June [facility] [address] [place] [address] Transitional Care Pharmacist Pharmacy 12/20/24 03/21/25 Doctor Of Optometry Relationship Specialty Start Date End Date Cosme Boland DO [address] [place] [address] PCP - General Family Medicine 11/28/24 Xochilt Gaston, GERIATRIC SOCIAL WORK PROFESSOR.MANUFACTURING MILLWRIGHT [address] [place] [address] [facility]our[facility] Coffee AttendantSt[facility] 06/03/24 Maggie Putnam MD [address] [place] [address] Internal Medicine 10/02/24 Ed Saxena, GERIATRIC SOCIAL WORK PROFESSOR.MANUFACTURING MILLWRIGHT [facility] [place] [address] Gourmet Coffee Attendant Family Medicine 12/10/[address] [address] Transitional Care Pharmacist Pharmacy 12/21/24 03/21/25 Doctor Of Optometry Relationship Specialty Start Date End Date Cosme Boland DO [facility] [place] [address] PCP - General Family Medicine 11/28/24 Xochilt Gaston, KAIN.MANUFACTURING MILLWRIGHT [address] [place] [address] Gourmet Coffee Attendant Family Medicine 06/03/24 Maggie Putnam MD [address] [place] [address] Internal Medicine 10/02/24 Ed Saxena, GERIATRIC SOCIAL WORK PROFESSOR.MANUFACTURING MILLWRIGHT [address] [place] [address] Gourmet Coffee Attendant Family [facility] 12/10/24 [facility] [address] [place] [phone] Transitional Care Pharmacist Pharmacy 12/21/24 03/21/25 Doctor Of Optometry Relationship Specialty Start Date End Date Cosme Boland DO [facility] [place] [address] PCP - General Family Medicine 11/28/24 Xochilt Gaston, GERIATRIC SOCIAL WORK PROFESSOR.MANUFACTURING MILLWRIGHT [facility] [place] [address] Gourmet Coffee Attendant Family [facility] 06/03/24 Maggie Putnam MD [address] [place] [address] Internal Medicine 10/02/24 Ed Saxena, GERIATRIC SOCIAL WORK PROFESSOR.MANUFACTURING MILLWRIGHT [address] [place] [address] 712401 Gourmet Coffee Attendant Family [facility] 12/10/[address] [address] Transitional Care Pharmacist Pharmacy 12/21/24 03/21/25 Doctor Of Optometry Relationship Specialty Start Date End Date Cosme Boland DO [address] [place] [address] 903201 PCP - General Family Medicine 11/28/24 Xochilt Gaston, GERIATRIC SOCIAL WORK PROFESSOR.MANUFACTURING MILLWRIGHT [address] [place] [address] 029951 [facility] 06/03/24 Maggie Putnam MD [address] [place] [address] Internal Medicine 10/02/24 Ed Saxena, GERIATRIC SOCIAL WORK PROFESSOR.MANUFACTURING MILLWRIGHT [address] [place] [address] [facility] 12/10/24 Mounika Trent, [facility] [place] [address] [place] [address] Transitional Care Pharmacist Pharmacy 12/21/24 03/21/25 Doctor Of Optometry Relationship Specialty Start Date End Date Cosme Boland DO [address] [place] [address] PCP - General Family Medicine 11/28/24 Xochilt Gaston, GERIATRIC SOCIAL WORK PROFESSOR.MANUFACTURING MILLWRIGHT [address] [place] [address] Gourmet Coffee Attendant Family Medicine 06/03/24 Maggie Putnam MD [address] [place] [address] Internal Medicine 10/02/24 Ed Saxena, KAIN.MANUFACTURING MILLWRIGHT [address] [place] [address] Gourmet Coffee Attendant Family [facility] 12/10/24 [address] [place] [phone] Transitional Care Pharmacist Pharmacy 12/21/24 03/21/25 Doctor Of Optometry Relationship Specialty Start Date End Date Cosme Boland DO [address] [place] [address] PCP - General Family Medicine 11/28/24 Xochilt Gaston, GERIATRIC SOCIAL WORK PROFESSOR.MANUFACTURING MILLWRIGHT [address] [place] [address] Gourmet Coffee Attendant Family Medicine 06/03/24 Maggie Putnam MD [address] [place] [address] Internal Medicine 10/02/24 Ed Saxena GERIATRIC SOCIAL WORK PROFESSOR.MANUFACTURING MILLWRIGHT [address] [place] [address] Gourmet Coffee Attendant Family Medicine 12/10/24 [facility] [address] [place] [address] Transitional Care Pharmacist Pharmacy 12/21/24 03/21/25 Doctor Of Optometry Relationship Specialty Start Date End Date Cosme Boland DO [address] [place] [address] PCP - General Family Medicine 11/28/24 Xochilt Gaston APRN.MANUFACTURING MILLWRIGHT [address] [place] [address] Gourmet Coffee Attendant Family Medicine 06/03/24 Maggie Putnam MD [address] [place] [address] Internal Medicine 10/02/24 Ed Saxena APRN.MANUFACTURING MILLWRIGHT [address] [place] [address] Gourmet Coffee Attendant Family [facility] 12/10/24 [facility] [address] [place] [address] Transitional Care Pharmacist Pharmacy 12/21/24 03/21/25 Doctor Of Optometry Relationship Specialty Start Date End Date Cosme Boland DO [address] [place] [address] PCP - General Family Medicine 11/28/24 Xochilt Gaston, GERIATRIC SOCIAL WORK PROFESSOR.MANUFACTURING MILLWRIGHT [address] [place] [address] Gourmet Coffee Attendant Family [facility] 06/03/24 Maggie Putnam MD [address] [place] [address] Internal Medicine 10/02/24 Ed Saxena, GERIATRIC SOCIAL WORK PROFESSOR.MANUFACTURING MILLWRIGHT [address] [place] [address] Gourmet Coffee Attendant Family [facility] 12/10/[address] [address] Transitional Care Pharmacist Pharmacy 12/21/24 03/21/25 Doctor Of Optometry Relationship Specialty Start Date End Date Cosme Boland DO [address] [place] [address] PCP - General Family Medicine 11/28/24 Xochilt Gaston, GERIATRIC SOCIAL WORK PROFESSOR.MANUFACTURING MILLWRIGHT [address] [place] [address] [facility] 06/03/24 Maggie Putnam MD [address] [place] [address] 98990 Internal Medicine 10/02/24 Ed Saxena, GERIATRIC SOCIAL WORK PROFESSOR.MANUFACTURING MILLWRIGHT [facility] [place] [address] Gourmet Coffee Attendant Family [facility] 12/10/24 Mounika Trent, [facility] [place] [address] [place] [address] Transitional Care Pharmacist Pharmacy 12/21/24 03/21/25 Doctor Of Optometry Relationship Specialty Start Date End Date Cosme Boland DO [address] [place] [address] PCP - General Family Medicine 11/28/24 Xochilt Gaston, KAIN.MANUFACTURING MILLWRIGHT [address] [place] [address] Gourmet Coffee Attendant Family [facility] 06/03/24 Maggie Putnam MD [address] [place] [address] Internal Medicine 10/02/24 Ed Saxena, KAIN.MANUFACTURING MILLWRIGHT [address] [place] [address] [facility]our[facility]endant[facility] 12/10/[address] [address] Transitional Care Pharmacist Pharmacy 12/21/24 03/21/25 Doctor Of Optometry Relationship Specialty Start Date End Date Cosme Boland DO [address] [place] [address] PCP - General Family Medicine 11/28/24 Xochilt Gaston, GERIATRIC SOCIAL WORK PROFESSOR.MANUFACTURING MILLWRIGHT [address] [place] [address] Gour[facility] Coffee AttendantSt[facility] 06/03/24 Maggie Putnam MD [address] [place] [address]809 Internal Medicine 10/02/24 Ed Saxena, GERIATRIC SOCIAL WORK PROFESSOR.MANUFACTURING MILLWRIGHT [address] [place] [address] Gourmet Coffee Attendant Family [facility] 12/10/24 Mounika Trent, [facility] [address] [place] [address] Transitional Care Pharmacist Pharmacy 12/21/24 03/21/25 Doctor Of Optometry Relationship Specialty Start Date End Date Cosme Boland DO [address] [place] [address] PCP - General Family Medicine 11/28/24 Xochilt Gaston, GERIATRIC SOCIAL WORK PROFESSOR.MANUFACTURING MILLWRIGHT [address] [place] [address] [facility] 06/03/24 Maggie Putnam MD [address] [place] [address]47 Internal Medicine 10/02/24 Ed Saxena, GERIATRIC SOCIAL WORK PROFESSOR.MANUFACTURING MILLWRIGHT [address] [place] [address] [facility] 12/10/24 [facility] [address] [place], [place] [phone] Transitional Care Pharmacist Pharmacy 12/21/24 03/21/25 Doctor Of Optometry Relationship Specialty Start Date End Date Cosme Boland DO [address] [place] [address] PCP - General Family Medicine 11/28/24 Xochilt Gaston, GERIATRIC SOCIAL WORK PROFESSOR.MANUFACTURING MILLWRIGHT [address] [place] [address] Gourmet Coffee Attendant Family Medicine 06/03/24 Maggie Putnam MD [address] [place] [address] Internal Medicine 10/02/24 Ed Saxena, GERIATRIC SOCIAL WORK PROFESSOR.MANUFACTURING MILLWRIGHT [address] [place], [place] 407731 Gourmet Coffee Attendant Family [facility] 12/10/24 [facility] [address] [place] [address] Transitional Care Pharmacist Pharmacy 12/21/24 03/21/25 Stephie Montoya MD [address] [place], [place] [phone] [facility] Provider Gastroenterology 01/22/25 Stephie Montoya MD [address] [place], [place] 6981995 Home Parenteral Nutrition Provider Gastroenterology 01/22/25 Doctor Of Optometry Relationship Specialty Start Date End Date Cosme Boland DO [address] [place] [address] PCP - General Family Medicine 11/28/24 Xochilt Gaston, GERIATRIC SOCIAL WORK PROFESSOR.MANUFACTURING MILLWRIGHT [address] [place] [address] Gourmet Coffee Attendant Family Medicine 06/03/24 Maggie Putnam MD [address] [place] [address]96 Internal Medicine 10/02/24 Ed Saxena, GERIATRIC SOCIAL WORK PROFESSOR.MANUFACTURING MILLWRIGHT [address] [place], [place] 778511 Gourmet Coffee Attendant Family Medicine 12/10/24 Mounika Trent, [facility] [address] [place] [address] Transitional Care Pharmacist Pharmacy 12/21/24 03/21/25 Stephie Montoya MD [address] [place], [place] [phone] [facility] Provider Gastroenterology 01/22/25 Stephie Montoya MD [address] [place], [place] [phone] Home Parenteral Nutrition Provider Gastroenterology 01/22/25 Doctor Of Optometry Relationship Specialty Start Date End Date Cosme Boland DO [address] [place] [address] PCP - General Family Medicine 11/28/24 Xochilt Gaston APRN.MANUFACTURING MILLWRIGHT [address] [place] [address] Gourmet Coffee Attendant Family Medicine 06/03/24 Maggie Putnam MD [address] [place] [address] 87237 Internal Medicine 10/02/24 Ed Saxena GERIATRIC SOCIAL WORK PROFESSOR.MANUFACTURING MILLWRIGHT [facility]0 [place], [place] [id number] Gourmet Coffee Attendant Family Medicine 12/10/24 Mounika Trent, [facility] [address] [place], [place] [phone] Transitional Care Pharmacist Pharmacy 12/21/24 03/21/25 Stephie Montoya MD [address] [place] [address] [facility] Provider Gastroenterology 01/22/25 Stephie Montoya MD [address] [place] [address] Home Parenteral Nutrition Provider Gastroenterology 01/22/25 Doctor Of Optometry Relationship Specialty Start Date End Date Cosme Boland DO [address] [place], [place] [id number] PCP - General Family Medicine 11/28/24 Xochilt Gaston APRN.MANUFACTURING MILLWRIGHT [address] [place], [place] 548851 Gourmet Coffee Attendant Family Medicine 06/03/24 Maggie Putnam MD [address] [place] [address] Internal Medicine 10/02/24 Ed Saxena APRN.MANUFACTURING MILLWRIGHT [address] [place] [address] Gourmet Coffee Attendant Family Medicine 12/10/24 Mounika Trent, [facility] [address] [place] [address] Transitional Care Pharmacist Pharmacy 12/21/24 03/21/25 Stephie Montoya MD [address] [place] [address] [facility] Provider Gastroenterology 01/22/25 Stephie Montoya MD [address] [place] [address] Home Parenteral Nutrition Provider Gastroenterology 01/22/25 Doctor Of Optometry Relationship Specialty Start Date End Date Cosme Boland DO [address] [place], [place] 839221 PCP - General Family Medicine 11/28/24 Xochilt Gaston APRN.MANUFACTURING MILLWRIGHT [address] [place], [place] 784801 Gourmet Coffee Attendant Family Medicine 06/03/24 Maggie Putnam MD [address] [place] [address] 0[address]38 Internal Medicine 10/02/24 Ed Saxena APRN.MANUFACTURING MILLWRIGHT [address] [place] [address] 996471 Gourmet Coffee Attendant Family [facility] 12/10/24 [facility] [address] [place] [address] Transitional Care Pharmacist Pharmacy 12/21/24 03/21/25 [place] [address] [place] [address] [facility] Provider Gastroenterology 01/22/25 Stephie Montoya MD [address] [place] [phone] Home Parenteral Nutrition Provider Gastroenterology 01/22/25 Doctor Of Optometry Relationship Specialty Start Date End Date Cosme Boland DO [address] [place] [address] PCP - General Family Medicine 11/28/24 Xochilt Gaston APRN.MANUFACTURING MILLWRIGHT [address] [place], [place] 563531 Gourmet Coffee Attendant Family Medicine 06/03/24 Maggie Putnam MD [address] [place] [address] 8[address]72 Internal Medicine 10/02/24 Ed Saxena APRN.MANUFACTURING MILLWRIGHT [address] [place] [address] 525101 [facility] 12/10/24 [facility] [address] [place] [address] Transitional Care Pharmacist Pharmacy 12/21/24 03/21/25 Stephie Montoya MD [address] [place] [address] [facility] Provider Gastroenterology 01/22/25 Stephie Montoya MD [address] [place] [address] Home Parenteral Nutrition Provider Gastroenterology 01/22/25 Doctor Of Optometry Relationship Specialty Start Date End Date Cosme Boland DO [address] [place], [place] 913561 PCP - General Family Medicine 11/28/24 Xochilt Gaston, GERIATRIC SOCIAL WORK PROFESSOR.MANUFACTURING MILLWRIGHT [address] [place], [place] 089001 Gourmet Coffee AttendantUnitypoint Health-[facility] 06/03/24 Maggie Putnam MD [address] [place] [address] 91875 Internal Medicine 10/02/24 Ed Saxena, KAIN.MANUFACTURING MILLWRIGHT [address] [place], [place] 084771 [facility] 12/10/24 [facility] [address] [place], [place] [phone] Transitional Care Pharmacist Pharmacy 12/21/24 03/21/25 Stephie Montoya MD [address] [place] [address] [facility] Provider Gastroenterology 01/22/25 Stephie Montoya MD [address] [place] [address] Home Parenteral Nutrition Provider Gastroenterology 01/22/25 Doctor Of Optometry Relationship Specialty Start Date End Date Cosme Boland DO [address] [place], [place] 735261 PCP - General Family Medicine 11/28/24 Xochilt Gaston, KAIN.MANUFACTURING MILLWRIGHT [address] [place], [place] 084231 [facility] 06/03/24 Maggie Putnam MD [address] [place] [address] Internal Medicine 10/02/24 Ed Saxena, KAIN.MANUFACTURING MILLWRIGHT [address] [place] [address] Gourmet Coffee Attendant Family Medicine 12/10/24 Mounika Trent, [facility] [address] [place] [phone] Transitional Care Pharmacist Pharmacy 12/21/24 03/21/25 [place] [address] [place], [place] [phone] [facility] Provider Gastroenterology 01/22/25 Stephie Montoya MD [address] [place], [place] [phone] Home Parenteral Nutrition Provider Gastroenterology 01/22/25 Doctor Of Optometry Relationship Specialty Start Date End Date Cosme Boland DO [address] [place] [address] PCP - General Family Medicine 11/28/24 Xochilt Gaston, KAIN.MANUFACTURING MILLWRIGHT [address] [place] [address] 7[address] Gourmet Coffee Attendant Family Medicine 06/03/24 Maggie Putnam MD [address] [place] [address] 74228 Internal Medicine 10/02/24 Ed Saxena, GERIATRIC SOCIAL WORK PROFESSOR.MANUFACTURING MILLWRIGHT [address] [place] [address] 813851 Gourmet Coffee Attendant Family Medicine 12/10/24 Mounika Trent, [facility] [address] [place] [address] Transitional Care Pharmacist Pharmacy 12/21/24 03/21/25 Stephie Montoya MD [address] [place] [address] [facility] [facility] Provider Gastroenterology 01/22/25 Stephie Montoya MD [address] [place] [address] Home Parenteral Nutrition Provider Gastroenterology 01/22/25 Doctor Of Optometry Relationship Specialty Start Date End Date Cosme Boland DO [address] [place], [place] [id number] PCP - General Family Medicine 11/28/24 Xochilt Gaston APRN.MANUFACTURING MILLWRIGHT [address] [place] [address] [phone] Gourmet Coffee Attendant Family Medicine 06/03/24 Maggie Putnam MD [address] [place] [address] 140794 Internal Medicine 10/02/24 Ed Saxena APRN.MANUFACTURING MILLWRIGHT [address] [place], [place] 056271 Gourmet Coffee Attendant Family Medicine 12/10/24 Mounika Trent, [facility] [address] [place] [address] Transitional Care Pharmacist Pharmacy 12/21/24 03/21/25 Stephie Montoya MD [address] [place] [address] [facility] Provider Gastroenterology 01/22/25 Stephie Montoya MD [address] [place] [address] Home Parenteral Nutrition Provider Gastroenterology 01/22/25 Doctor Of Optometry Relationship Specialty Start Date End Date Cosme Boland DO [address] [place], [place] 726771 PCP - General Family Medicine 11/28/24 Xochilt Gaston, KAIN.MANUFACTURING MILLWRIGHT [address] [place], [place] 309451 Gourmet Coffee Attendant Family Medicine 06/03/24 Maggie Putnam MD [address] [place], [place] 613374 Internal Medicine 10/02/24 Ed Saxena, GERIATRIC SOCIAL WORK PROFESSOR.MANUFACTURING MILLWRIGHT [address] [place], [place] 262891 Gourmet Coffee Attendant Family Medicine 12/10/24 Mounika Trent, [facility] [address] [place] [address] Transitional Care Pharmacist Pharmacy 12/21/24 03/21/25 [place] [address] [place] [address] [facility] Provider Gastroenterology 01/22/25 Stephie Montoya MD [address] [place] [address] Home Parenteral Nutrition Provider Gastroenterology 01/22/25 Chance Florentino, RN Registered Nurse General Surgery 02/20/25 Lamar Dey, NATHANAEL Registered Nurse Backup General Surgery 02/20/25 Kirit Devine MD [address] [place] [address] Surgeon General Surgery 02/20/25 Doctor Of Optometry Relationship Specialty Start Date End Date Cosme Boland DO [address] [place], [place] 319541 PCP - General Family Medicine 11/28/24 Xochilt Gaston, GERIATRIC SOCIAL WORK PROFESSOR.MANUFACTURING MILLWRIGHT [address] [place], [place] [id number] Gourmet Coffee Attendant Family Medicine 06/03/24 Maggie Putnam MD [address] [place], [place] [id number] Internal Medicine 10/02/24 Ed Saxena, GERIATRIC SOCIAL WORK PROFESSOR.MANUFACTURING MILLWRIGHT [address] [place], [place] [id number] Gourmet Coffee Attendant Family Medicine 12/10/24 [facility] [address] [phone] Transitional Care Pharmacist Pharmacy 12/21/24 03/21/25 [place] [address] [place] [address] [facility] Provider Gastroenterology 01/22/25 Stephie Montoya MD [address] [place] [address] Home Parenteral Nutrition Provider Gastroenterology 01/22/25 Chance Florentino, NATHANAEL Registered Nurse General Surgery 02/20/25 Lamar Dey, NATHANAEL Registered Nurse Backup General Surgery 02/20/25 Kirit Devine MD [address] [place] [address] Surgeon General Surgery 02/20/25 Doctor Of Optometry Relationship Specialty Start Date End Date Cosme Boland DO [address] [place], [place] [id number] PCP - General Family Medicine 11/28/24 Xochilt Gaston APRN.MANUFACTURING MILLWRIGHT [address] [place] [address] [phone] Gourmet Coffee Attendant Family Medicine 06/03/24 Maggie Putnam MD [address] [place] [address] [phone] Internal Medicine 10/02/24 Ed Saxena APRN.MANUFACTURING MILLWRIGHT [address] [place] [address] [id number] Gourmet Coffee Attendant Family Medicine 12/10/24 [facility] [address] [phone] Transitional Care Pharmacist Pharmacy 12/21/24 03/21/25 Stephie Montoya MD [address] [phone] [facility] Provider Gastroenterology 01/22/25 Stephie Montoya MD [address] [phone] Home Parenteral Nutrition Provider Gastroenterology 01/22/25 Chance Florentino, RN Registered Nurse General Surgery 02/20/25 Lamar Dey, RN Registered Nurse Backup General Surgery 02/20/25 [place] [address] [place], [place] [phone] Surgeon General Surgery 02/20/25 Doctor Of Optometry Relationship Specialty Start Date End Date Cosme Boland DO [address] [place], [place] [id number] PCP - General Family Medicine 11/28/24 Xochilt Gaston APRN.MANUFACTURING MILLWRIGHT [address] [place] [address] [phone] Gourmet Coffee Attendant Family Medicine 06/03/24 Maggie Putnam MD [address] [place] [address] [phone] Internal Medicine 10/02/24 Ed Saxena APRN.MANUFACTURING MILLWRIGHT [address] [place] [address] [phone] Gourmet Coffee Attendant Family [facility] 12/10/24 [facility] [address] [place] [address] Transitional Care Pharmacist Pharmacy 12/21/24 03/21/25 Stephie Montoya MD [address] [phone] [facility] Provider Gastroenterology 01/22/25 02/28/25 Stephie Montoya MD [address] [phone] Home Parenteral Nutrition Provider Gastroenterology 01/22/25 02/28/25 Chance Florentino, RN Registered Nurse General Surgery 02/20/25 Lamar Dey, RN Registered Nurse Backup General Surgery 02/20/25 Kirit Devine MD [address] [place] [address] Surgeon General Surgery 02/20/25 Doctor Of Optometry Relationship Specialty Start Date End Date Cosme Boland DO [address] [place] [address] PCP - General Family Medicine 11/28/24 Xochilt Gaston APRN.MANUFACTURING MILLWRIGHT [address] [place], [place] [phone] Gourmet Coffee Attendant Family Medicine 06/03/24 Maggie Putnam MD [address] [place] [phone] Internal Medicine 10/02/24 Ed Saxena APRN.MANUFACTURING MILLWRIGHT [facility], [place] [phone] Gourmet Coffee Attendant Family Medicine 12/10/24 Mounika Trent [facility] [address] [place] [address] Transitional Care Pharmacist Pharmacy 12/21/24 03/21/25 Chance Florentino, RN Registered Nurse General Surgery 02/20/25 Lamar Dey, RN Registered Nurse Backup General Surgery 02/20/25 Kirit Devine MD [address] [place] [address] Surgeon General Surgery 02/20/25 Doctor Of Optometry Relationship Specialty Start Date End Date Cosme Boland DO [address] [place] [address] PCP - General Family Medicine 11/28/24 Xochilt Gaston, GERIATRIC SOCIAL WORK PROFESSOR.MANUFACTURING MILLWRIGHT [address] [place], [place] [phone] Gourmet Coffee Attendant Family Medicine 06/03/24 Maggie Putnam MD [address] [place], [place] [phone] Internal Medicine 10/02/24 Ed Saxena, GERIATRIC SOCIAL WORK PROFESSOR.MANUFACTURING MILLWRIGHT [address] [place] [address] Gourmet Coffee Attendant Family [facility] 12/10/24 [facility] [address] [phone] Transitional Care Pharmacist Pharmacy 12/21/24 03/21/25 Chance Florentino, RN Registered Nurse General Surgery 02/20/25 Lamar Dey, RN Registered Nurse Backup General Surgery 02/20/25 Kirit Devine MD [address] [place] [address] Surgeon General Surgery 02/20/25 Doctor Of Optometry Relationship Specialty Start Date End Date Cosme Boland DO [address] [place], [place] [phone] PCP - General Family Medicine 11/28/24 Xochilt Gaston, GERIATRIC SOCIAL WORK PROFESSOR.MANUFACTURING MILLWRIGHT [address] [place] [address] Gourmet Coffee Attendant Family [facility] 06/03/24 Maggie Putnam MD [address] [place] [address] [phone] Internal Medicine 10/02/24 Ed Saxena, GERIATRIC SOCIAL WORK PROFESSOR.MANUFACTURING MILLWRIGHT [address], [place] [phone] [facility] 12/10/24 Mounika Trent, [facility] [address] [place], [place] [phone] Transitional Care Pharmacist Pharmacy 12/21/24 03/21/25 Chance Florentino, RN Registered Nurse General Surgery 02/20/25 Lamar Dey RN Registered Nurse Backup General Surgery 02/20/25 Kirit Devine MD [address] [place] [address] Surgeon General Surgery 02/20/25 Doctor Of Optometry Relationship Specialty Start Date End Date Cosme Boland DO [address] [place] [id number] PCP - General Family Medicine 11/28/24 Xochilt Gaston, GERIATRIC SOCIAL WORK PROFESSOR.MANUFACTURING MILLWRIGHT [address] [place], [place] [address] [facility] 06/03/24 Maggie Putnam MD [address] [place] [address] [phone] Internal Medicine 10/02/24 Ed Saxena, GERIATRIC SOCIAL WORK PROFESSOR.MANUFACTURING MILLWRIGHT [address], [place] [phone] Gourmet Coffee Attendant Family Medicine 12/10/24 Mounika Trent [facility] [address] [place] [address] Transitional Care Pharmacist Pharmacy 12/21/24 03/21/25 Chance Florentino, RN Registered Nurse General Surgery 02/20/25 Lamar Dey, RN Registered Nurse Backup General Surgery 02/20/25 Kirit Devine MD [address] [place] [address] Surgeon General Surgery 02/20/25 Doctor Of Optometry Relationship Specialty Start Date End Date Cosme Boland DO [address] [place] [address] [id number] PCP - General Family Medicine 11/28/24 Xochilt Gaston, GERIATRIC SOCIAL WORK PROFESSOR.MANUFACTURING MILLWRIGHT [address] [place] [address] Gourmet Coffee Attendant Family Medicine 06/03/24 Maggie Putnam MD [address] [place] [phone] Internal Medicine 10/02/24 Ed Saxena, GERIATRIC SOCIAL WORK PROFESSOR.MANUFACTURING MILLWRIGHT [address] [place] [phone] Gourmet Coffee Attendant Family Medicine 12/10/24 Mounika Trent, [facility] [address] [place] [address] Transitional Care Pharmacist Pharmacy 12/21/24 03/21/25 Chance Florentino, RN Registered Nurse General Surgery 02/20/25 Lamar Dey, RN Registered Nurse Backup General Surgery 02/20/25 Kirit Devine MD [address] [phone] Surgeon General Surgery 02/20/25 FOR RECORDS PERTAINING TO PATIENTS WHO ARE [...] BE BASED ON THE PRIMARY CLINICAL RECORDS. [employer] provides no warranty or guarantee of the accuracy or completeness of information in this document.
[2025-05-24 12:08] LABS: Anion Gap 23 (5-15); BUN 4 mg/dL (4-19); BUN/Creat Ratio 3.2 RATIO (10-20); Calcium,Total 5.0 mg/dL (7.6-11.0); Carbon Dioxide 21.7 mmol/L (21.0-32.0); Chloride 97 mmol/L (98-108); Estimated Creatinine Clearance 69.21 ml/min (50-250); Glucose 95 mg/dL (70-99)
[2025-05-24 12:13] LABS: Potassium 2.3 mmol/L (3.3-5.1)
[2025-05-24] MEDS: Potassium Chloride Oral Tablet 20 MEQ 40 MEQ PO (12:24)
[2025-05-24] MEDS: Potassium Chloride 10mEq/100mL 10 MEQ/100 ML IV.SOLN. 100 MEQ IV BOLUS ×2 (12:45→13:52)
[2025-05-24 12:52] VITALS: BP 123/95; PULSE 57; RESP 17; O2SAT 100
--- NOTE | 2025-05-24 13:57 | ED.RN ---
PATIENT NOTIFIED AND DECLINED TYLENOL DOSE WELL STATING "I WILL BE FINE FOR NOW"
[2025-05-24 14:00] VITALS: BP 119/86; PULSE 70; RESP 16; O2SAT 98
[2025-05-24 15:01] VITALS: BP 125/77; PULSE 60; RESP 14; TEMP 36.8; O2SAT 100
== END 2025-05-24 15:02 | disposition home or self-care (01) ==
PROVIDERS: Emergency Provider Emergency Medicine; PCP Student in an Organized Health Care Education/Training Program; Visit Provider Emergency Medicine
DX: E87.6 Hypokalemia (principal); F41.9 Anxiety disorder, unspecified; E83.51 Hypocalcemia; Z86.718 Personal history of other venous thrombosis and embolism; Z87.891 Personal history of nicotine dependence; Z79.01 Long term (current) use of anticoagulants; Z79.899 Other long term (current) drug therapy
CPT/HCPCS: 80048; 85025; 96365; 96366; 96375; 99283; A4216; J0612

== ENCOUNTER 2025-05-25 10:41 | Observation (INO) | payer MEDICAID, SELFPAY ==
[2025-05-25 10:42] VITALS: BP 117/76; PULSE 111; RESP 16; TEMP 35.7; O2SAT 97; BMI 27.6
--- NOTE | 2025-05-25 11:07 | EX.ED.DYSGE1 ---
HPI History of Present Illness Chief Complaint: Abn Labs Narrative Narrative: 39-year-old female past medical history of bowel obstruction where she states she had surgery at 75% of her small bowel was removed presents with muscle weakness and anxiety. She states that she was seen in the emergency department yesterday and diagnosed with hypokalemia. She is on potassium supplements but otherwise is unsure of why she always has a low potassium. She states that her weakness and muscle weakness is causing her anxiety. She denies any fevers or chills, no nausea or vomiting, no diarrhea, no exacerbating or alleviating factors. 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 Abdominal bloating Flatulence Depression Former smoker Ischemic necrosis of toe Sepsis Hx of blood clots Diarrhea Anxiety Tobacco use Borderline personality disorder Obesity Bipolar disorder Home Medications ?Medication ?Instructions ?Recorded ?Last Taken ?Type escitalopram oxalate 20 mg tablet 30 mg PO DAILY depression 04/27/22 05/23/25 History omeprazole 40 mg capsule,delayed 40 mg PO DAILY gerd 06/20/23 05/23/25 History release Lactobacillus acidoph-L.bulgaricus 2 tab PO QHS supplement 05/24/25 Unknown History 1 million cell tablet (Floranex) apixaban 5 mg tablet (Eliquis) 5 mg PO BID heart 05/24/25 05/24/25 History dicyclomine 10 mg capsule 10 mg PO TID gas/bloating 05/24/25 05/24/25 History doxepin 10 mg capsule 10 mg PO DAILY pain 05/24/25 05/23/25 History lurasidone 40 mg tablet 40 mg PO QHS mood 05/24/25 05/23/25 History olanzapine 10 mg tablet 10 mg PO QHS anti psychotic 05/24/25 05/23/25 History potassium chloride 20 mEq 60 meq PO DAILY k+ replace 05/24/25 05/24/25 History tablet,extended release(part/cryst) Allergy/AdvReac Type Severity Reaction Status Date / Time acetaminophen (From Percocet) AdvReac Abd Verified 05/25/25 10:42 cramps/diarrhea hydrocodone (From Vicodin) AdvReac Abd Verified 05/25/25 10:42 cramps/diarrhea oxycodone (From Percocet) AdvReac Abd Verified 05/25/25 10:42 cramps/diarrhea Family History Other Heart disease Surgical History History of creation of ostomy Hx of cholecystectomy H/O section History of carpal tunnel surgery Social History Smoking Status: Former smoker substance use type: does not use ROS ROS ED ROS Narrative Review of systems positive for generalized weakness/muscle weakness as well as anxiety. Denies fevers or chills, no nausea or vomiting. No diarrhea. Had a bowel movement between her ED visit yesterday and today. EXAM Physical Exam Narrative Exam Narrative: Afebrile. Vital signs noted. Nontoxic-appearing. Cardiovascular examination reveals mild tachycardia. Lungs clear to auscultation bilaterally. Abdomen is soft and nontender without guarding or rebound, no distention, positive bowel sounds. Neurological examination nonfocal, nonlateralizing. Const Vital Signs: 05/25/25 10:42 05/25/25 11:09 Temperature 96.2 F L Temperature Source Temporal Pulse Rate 111 H Respiratory Rate 16 Respiratory Pattern Normal Blood Pressure 117/76 Blood Pressure Mean 89 Pulse Ox 97 Oxygen Delivery Method Room Air MDM MDM MDM Narrative Medical decision making narrative: Differential diagnosis includes but not limited to hypokalemia with hypomagnesemia versus anxiety attack versus generalized weakness. I reviewed her ED visit from yesterday. She had a potassium of 2.3 and received both IV and oral potassium and was told to continue her potassium supplementation. I will repeat a BMP, and add a magnesium as well. I will refrain from IV fluids as she received IV potassium yesterday as well as fluids. She was administered 1 mg of Ativan orally for anxiety. I reviewed her BMP and her potassium is low at 2.4. When compared to yesterday, it is only risen by 0.1. Anion gap elevated 17 with BUN low at 3 and creatinine 1.16, glucose 136, calcium low at 5.1, magnesium also low at 0.6. I ordered for grams of magnesium intravenously and discussed patient with Dr. Sue for admission to the PCU as this is her second visit and she has multiple electrolyte abnormalities most likely from her short gut syndrome. Disposition is admitted in stable condition. History & Record Review Discussion w/independent historian: Patient Additional record(s) reviewed:: Prior ED visit and Prior labs Lab Data Labs: Laboratory Results - last 24 hr 05/25/25 11:15 Sodium 143 Potassium 2.4 L* Chloride 102 Carbon Dioxide 24.2 Anion Gap 17 H BUN 3 L Creatinine 1.16 Estim Creat Clear Calc 69.52 Est GFR (MDRD) Non-Af 61 BUN/Creatinine Ratio 2.8 L Glucose 136 H Calcium 5.1 L* Magnesium 0.6 L* Management Discussion w/another healthcare provider: Hospitalist (Dr. Sue) Discharge Plan Dx/Rx/DC Orders Clinical Impression: Hypokalemia, Hypomagnesemia, Hypocalcemia, Muscle weakness, Short gut syndrome Disposition Disposition: Acute Care Hospital [facility]
--- OUTSIDE RECORDS SUMMARY | 2025-05-25 11:23 | XMS RPT_ITS | CCD ---
Author Organization [facility] Care Team Providers Care Logistics/Shipper Name Role Phone Zakiya George Unavailable UnavailZakiya [...] Fredrick Boland DO Primary Care Provider Rangel [employer] SUPERVISOR.Yesenia HARRINGTON Unavailable [facility] [employer] SUPERVISOR.Xochilt HARRINGTON Unavailable Ariella Cortes RN Unavailable Unavailable Juan Carlos [employer] SUPERVISOR.Yesenia HARRINGTON Unavailable Maggie Putnam MD Unavailable Provider [...] UNKNOWN Consulting Unavailable PROVIDER, UNKNOWN Consulting Unavailable Fredrick Boland DO L Primary Care Provider Lee Lou MD Unavailable [place] [employer] SUPERVISOR.DUSTER TENDER, Chelle Dallas Unavailable Leuschen [facility], Keesha Unavailable Crnonaomy [facility], Mounika Unavailable Stephie Montoya MD Unavailable Stephie Montoya MD Unavailable Chance Florentino RN Unavailable Unavaildarius Dey RN, Lamar Chávez Unavailable Unavailable Nilson VO, Alyson Unavailable [phone] Stephie Montoya MD Unavailable Stephie Montoya MD Unavailable Taras Sue Admitting Unavailable Fredrick Boland Primary Care Unavailable Joshua Hugo Attending Unavailable Taras Sue Consulting Unavailable Joshua Hugo Consulting Unavailable Ashley Rosen Consulting Unavailable [address] [facility] [place], [address] CO2 [Moles/Vol] 25.1 mmol/L Normal 21.0-32.0 [facility] Comment on above: Performed By: #### L 500.2500 ####[facility] [address] [place], [address] Creatinine [Mass/Vol] 0.77 mg/dL Normal 0.70-1.20 [facility] Comment on above: Performed By: #### L 500.2500 ####[facility] [address] [place], [address] ECRCL 106.68 ml/min Normal 50-250 [facility] Comment on above: Performed By: #### L 500.2500 ####[facility] [address] [place], [address] GAP 11 Normal 5-15 [facility] Comment on above: Performed By: #### L 500.2500 ####[facility] [address] [place], [address] GFR/1.73 sq M.predicted among non-blacks MDRD (S/P/Bld) [Vol rate/Area] 100 mL/min/{1.73_m2} Normal >60 [facility] Comment on above: Result Comment: mL/m in/1.73m2 CKD-EPI Creatinine Equation (2020) Performed By: #### L 500.2500 ####[facility] [address] [place], [address] Glucose [Mass/Vol] 143 mg/dL High 70-99 [facility] Comment on above: Performed By: #### L 500.2500 ####[facility] [address] [place], [address] Potassium [Moles/Vol] 2.9 mmol/L Low 3.3-5.1 [facility] Comment on above: Performed By: #### L 500.2500 ####[facility] [address] [place], [address] Sodium [Moles/Vol] 145 mmol/L Normal 133-145 [facility] Comment on above: Performed By: #### L 500.2500 ####[facility] [address] [place], [address] Urea nitrogen [Mass/Vol] mg/dL Low 4-19 [facility] Comment on above: Performed By: #### L 500.2500 ####[facility] [address] [place], [address] BUN/CRE UNABLE TO CALCULATE Low 10-20 [facility] Comment on above: Performed By: #### L 100.0100, L500.2500 ####[facility] [address] [place], [address] Calcium [Mass/Vol] 7.6 mg/dL Normal 7.6-11.0 [facility] Comment on above: Performed By: #### L 100.0100, L500.2500 ####[facility] [address] [place], [address] Chloride [Moles/Vol] 105 mmol/L Normal 98-108 [facility] Comment on above: Performed By: #### L 100.0100, L500.2500 ####[facility] [address] [place], [address] CO2 [Moles/Vol] 25.4 mmol/L Normal 21.0-32.0 [facility] Comment on above: Performed By: #### L 100.0100, L500.2500 ####[facility] [address] [place], [address] Creatinine [Mass/Vol] 0.73 mg/dL Normal 0.70-1.20 [facility] Comment on above: Performed By: #### L 100.0100, L500.2500 ####[facility] [address] [place], [address] ECRCL 112.52 ml/min Normal 50-250 [facility] Comment on above: Performed By: #### L 100.0100, L500.2500 ####[facility] [address] [place], [address] GAP 10 Normal 5-15 [facility] Comment on above: Performed By: #### L 100.0100, L500.2500 ####[facility] [address] [place], [address] GFR/1.73 sq M.predicted among non-blacks MDRD (S/P/Bld) [Vol rate/Area] 106 mL/min/{1.73_m2} Normal >60 [facility] Comment on above: Result Comment: mL/m in/1.73m2 CKD-EPI Creatinine Equation (2020) Performed By: #### L 100.0100, L500.2500 ####[facility] [address] [place], [address] Glucose [Mass/Vol] 121 mg/dL High 70-99 [facility] Comment on above: Performed By: #### L 100.0100, L500.2500 ####[facility] [address] [place], [address] Potassium [Moles/Vol] 2.2 mmol/L Invalid Interpretation Code 3.3-5.1 [facility] Comment on above: Result Comment: Crit ical Result(s) Called at: 0637 by: PHIL JUAREZ TO RNAREAD. ??Results read back by same. Performed By: #### L 100.0100, L500.2500 ####[facility] [address] [place], [address] Sodium [Moles/Vol] 141 mmol/L Normal 133-145 [facility] Comment on above: Performed By: #### L 100.0100, L500.2500 ####[facility] [address] [place], [address] Urea nitrogen [Mass/Vol] mg/dL Low 4-19 [facility] Comment on above: Performed By: #### L 100.0100, L500.2500 ####[facility] [address] [place], [address] CBC W/Diff, Automatedon 01-26 Absolute Lymph 1.32 X10 3/uL Normal 0.83-4.51 [facility] Comment on above: Performed By: #### L 100.0100, L500.2500 ####[facility] [address] [place], [address] Absolute Neut 3.5 X10 3/uL Normal 2.0-7.7 [facility] Comment on above: Performed By: #### L 100.0100, L500.2500 ####[facility] [address] [place], [address] Basophils/100 WBC (Bld) 0.6 % Normal 0-1 [facility] Comment on above: Performed By: #### L 100.0100, L500.2500 ####[facility] [address] [place], [address] Eosinophils/100 WBC (Bld) 3.1 % Normal 0-5 [facility] Comment on above: Performed By: #### L 100.0100, L500.2500 ####[facility] [address] [place], [address] Erythrocyte distribution width (RBC) [Ratio] 14.6 % Normal 11.6-14.6 [facility] Comment on above: Performed By: #### L 100.0100, L500.2500 ####[facility] [address] [place], [address] Hematocrit (Bld) [Volume fraction] 31.7 % Low 37-47 [facility] Comment on above: Performed By: #### L 100.0100, L500.2500 ####[facility] [address] [place], [address] Hemoglobin (Bld) [Mass/Vol] 10.5 g/dL Low 12.0-15.0 [facility] Comment on above: Performed By: #### L 100.0100, L500.2500 ####[facility] [address] [place], [address] IG% 0.200 Normal 0.0-0.9 [facility] Comment on above: Result Comment: IG% - Immature Granulocytes (promyelocytes, myelocytes andmetamyelocytes) > 1% indicates that a LEFT SHIFT is Present. Performed By: #### L 100.0100, L500.2500 ####[facility] [address] [place], [address] Lymphocytes/100 WBC (Bld) 24.4 % Normal 19-41 [facility] Comment on above: Performed By: #### L 100.0100, L500.2500 ####[facility] [address] [place], [address] MCH (RBC) [Entitic mass] 27.1 pg Normal 27.0-32.0 [facility] Comment on above: Performed By: #### L 100.0100, L500.2500 ####[facility] [address] [place], [address] MCHC (RBC) [Mass/Vol] 33.1 g/dL Normal 32-36 [facility] Comment on above: Performed By: #### L 100.0100, L500.2500 ####[facility] [address] [place], [address] MCV (RBC) [Entitic vol] 81.9 fL Normal 81-99 [facility] Comment on above: Performed By: #### L 100.0100, L500.2500 ####[facility] [address] [place], [address] Monocytes/100 WBC (Bld) 7.8 % Normal 0-10 [facility] Comment on above: Performed By: #### L 100.0100, L500.2500 ####[facility] [address] [place], [address] Neutrophils/100 WBC (Bld) 63.9 % Normal 47-70 [facility] Comment on above: Performed By: #### L 100.0100, L500.2500 ####[facility] [address] [place], [address] Nucleated RBC (Bld) [#/Vol] 0 10*3/uL Normal 0-5 [facility] Comment on above: Performed By: #### L 100.0100, L500.2500 ####[facility] [address] [place], [address] Platelet mean volume (Bld) [Entitic vol] 9.3 fL Normal 6.2-12.0 [facility] Comment on above: Performed By: #### L 100.0100, L500.2500 ####[facility] [address] [place], [address] Platelets (Bld) [#/Vol] 315 10*3/uL Normal 150-450 [facility] Comment on above: Performed By: #### L 100.0100, L500.2500 ####[facility] [address] [place], [address] RBC (Bld) [#/Vol] 3.87 10*6/uL Low 4.2-5.4 [facility] Comment on above: Performed By: #### L 100.0100, L500.2500 ####[facility] [address] [place], [address] RDW SD 43.3 fl Normal 35.1-43.9 [facility] Comment on above: Performed By: #### L 100.0100, L500.2500 ####[facility] [address] [place], [address] WBC (Bld) [#/Vol] 5.4 10*3/uL Normal 4.4-11.0 [facility] Comment on above: Performed By: #### L 100.0100, L500.2500 ####[facility] [address] [place], [address] Prothrombin Time w/INRon INR Coag (PPP) [Relative time] 1.8 {INR} Normal [facility] Comment on above: Performed By: #### L 300.3900 ####[facility] [address] [place], [address] PT Coag (PPP) [Time] 21.2 s High 11.7-14.9 [facility] Comment on above: Performed By: #### L 300.3900 ####[facility] [address] [place], [address] Basic Metabolic Profile (BMP )on 02-21-2025 Urea nitrogen [Mass/Vol] 2 mg/dL Low 4-19 [facility] Comment on above: Performed By: #### L 500.2500 ####[facility] [address] [place], [address] CBC W/Diff, Automatedon 01-26 Absolute Lymph 1.41 X10 3/uL Normal 0.83-4.51 [facility] Comment on above: Performed By: #### L 100.0100, L300.3900, L500.4050 ####[facility] [address] [place], [address] Absolute Neut 3.5 X10 3/uL Normal 2.0-7.7 [facility] Comment on above: Performed By: #### L 100.0100, L300.3900, L500.4050 ####[facility] [address] [place], [address] Basophils/100 WBC (Bld) 0.4 % Normal 0-1 [facility] Comment on above: Performed By: #### L 100.0100, L300.3900, L500.4050 ####[facility] [address] [place], [address] Eosinophils/100 WBC (Bld) 1.8 % Normal 0-5 [facility] Comment on above: Performed By: #### L 100.0100, L300.3900, L500.4050 ####[facility] [address] [place], [address] Erythrocyte distribution width (RBC) [Ratio] 14.3 % Normal 11.6-14.6 [facility] Comment on above: Performed By: #### L 100.0100, L300.3900, L500.4050 ####[facility] [address] [place], [address] Hematocrit (Bld) [Volume fraction] 32.9 % Low 37-47 [facility] Comment on above: Performed By: #### L 100.0100, L300.3900, L500.4050 ####[facility] [address] [place], [address] Hemoglobin (Bld) [Mass/Vol] 11.0 g/dL Low 12.0-15.0 [facility] Comment on above: Performed By: #### L 100.0100, L300.3900, L500.4050 ####[facility] [address] [place], [address] IG% 0.200 Normal 0.0-0.9 [facility] Comment on above: Result Comment: IG% - Immature Granulocytes (promyelocytes, myelocytes andmetamyelocytes) > 1% indicates that a LEFT SHIFT is Present. Performed By: #### L 100.0100, L300.3900, L500.4050 ####[facility] [address] [place], [address] Lymphocytes/100 WBC (Bld) 25.9 % Normal 19-41 [facility] Comment on above: Performed By: #### L 100.0100, L300.3900, L500.4050 ####[facility] [address] [place], [address] MCH (RBC) [Entitic mass] 27.4 pg Normal 27.0-32.0 [facility] Comment on above: Performed By: #### L 100.0100, L300.3900, L500.4050 ####[facility] [address] [place], [address] MCHC (RBC) [Mass/Vol] 33.4 g/dL Normal 32-36 [facility] Comment on above: Performed By: #### L 100.0100, L300.3900, L500.4050 ####[facility] [address] [place], [address] MCV (RBC) [Entitic vol] 82.0 fL Normal 81-99 [facility] Comment on above: Performed By: #### L 100.0100, L300.3900, L500.4050 ####[facility] [address] [place], [address] Monocytes/100 WBC (Bld) 7.5 % Normal 0-10 [facility] Comment on above: Performed By: #### L 100.0100, L300.3900, L500.4050 ####[facility] [address] [place], [address] Neutrophils/100 WBC (Bld) 64.2 % Normal 47-70 [facility] Comment on above: Performed By: #### L 100.0100, L300.3900, L500.4050 ####[facility] [address] [place], [address] Nucleated RBC (Bld) [#/Vol] 0 10*3/uL Normal 0-5 [facility] Comment on above: Performed By: #### L 100.0100, L300.3900, L500.4050 ####[facility] [address] [place], [address] Platelet mean volume (Bld) [Entitic vol] 9.5 fL Normal 6.2-12.0 [facility] Comment on above: Performed By: #### L 100.0100, L300.3900, L500.4050 ####[facility] [address] [place], [address] Platelets (Bld) [#/Vol] 322 10*3/uL Normal 150-450 [facility] Comment on above: Performed By: #### L 100.0100, L300.3900, L500.4050 ####[facility] [address] [place], [address] RBC (Bld) [#/Vol] 4.01 10*6/uL Low 4.2-5.4 [facility] Comment on above: Performed By: #### L 100.0100, L300.3900, L500.4050 ####[facility] [address] [place], [address] RDW SD 42.4 fl Normal 35.1-43.9 [facility] Comment on above: Performed By: #### L 100.0100, L300.3900, L500.4050 ####[facility] [address] [place], [address] WBC (Bld) [#/Vol] 5.5 10*3/uL Normal 4.4-11.0 [facility] Comment on above: Performed By: #### L 100.0100, L300.3900, L500.4050 ####[facility] [address] [place], [address] Comprehensive Metabolic Prof ilon 02-21-2025 Potassium [Moles/Vol] 2.1 mmol/L Invalid Interpretation Code 3.3-5.1 [facility] Comment on above: Result Comment: Crit ical Result(s) Called at: 05:02-21-25 TO [facility] by:??SHEN CSAE Results read back by same. AMENDED REPORT 02/21/25 0510 K previously reported as: 2.2 *L mmol/LCritical Result(s) Called at: 05:02-21-25 TO [facility] by:??SHEN CASE Results read back by same. Performed By: #### L 100.0100, L300.3900, L500.4050 ####[facility] [address] [place], [place], [address] ENTERIC PATHOGEN PANEL STOOL on 02-21-2025 EP PANEL Normal [facility] Comment on above: Performed By: #### M 100.0605, M100.6796, M100.637 ####[facility] [address] [place], [place], [address] Hepatitis Panel Acuteon 01-26 COMMENT Comment Normal . [facility] Comment on above: Result Comment: Not infected with HCV unless early or acute infection issuspected (which may be delayed in an immunocompromisedindividual), or other evidence exists to indicate HCVinfection.Performed at: - [facility] [id number] Director: Christian Alfaro PhD, Phone: [phone] Performed By: #### L 464.1426, L503.1850, L506.0200, L503.6030, L3000.0375 ####[facility] [address] [place], [place], [address] HEP B CORE,IgM Negative Normal Negative [facility] Comment on above: Performed By: #### L 501.9520, L503.6550, L506.0200, L503.6030, L3000.0375 ####[facility] [address] [place], [address] HEP B SURF AG Negative Normal Negative [facility] Comment on above: Performed By: #### L 501.9520, L503.6550, L506.0200, L503.6030, L3000.0375 ####[facility] [address] [place], [place], [address] HEP C VIRUS AB Non-Reactive Normal Non Reactive [facility] Comment on above: Performed By: #### L 501.9520, L503.6550, L506.0200, L503.6030, L3000.0375 ####[facility] [address] [place], [address] HEPATITIS A-IgM Negative Normal Negative [facility] Comment on above: Result Comment: A ne gative anti-HAV IgM result suggests no recent orcurrent HAV infection. Performed By: #### L 501.9520, L503.6550, L506.0200, L503.6030, L3000.0375 ####[facility] [address] [place], [address] Magnesiumon 02-21-2025 Magnesium [Mass/Vol] 1.8 mg/dL Normal 1.5-2.2 [facility] Comment on above: Order Comment: *ADD ON Performed By: #### L 501.2300, L501.5200 ####[facility] [address] [place], [address] Phosphoruson 02-21-2025 Phosphate [Mass/Vol] 3.7 mg/dL Normal 2.7-4.5 [facility] Comment on above: Order Comment: *ADD ON Performed By: #### L 501.2300, L501.5200 ####[facility] [address] [place], [address] Prothrombin Time w/INRon INR Coag (PPP) [Relative time] 1.6 {INR} Normal [facility] Comment on above: Performed By: #### L 100.0100, L300.3900, L500.4050 ####[facility] [address] [place], [address] PT Coag (PPP) [Time] 18.9 s High 11.7-14.9 [facility] Comment on above: Performed By: #### L 100.0100, L300.3900, L500.4050 ####[facility] [address] [place], [address] CBC W/Diff, Automatedon 01-26 Absolute Lymph 1.96 X10 3/uL Normal 0.83-4.51 [facility] Comment on above: Performed By: #### L 100.0100, L501.2300 ####[facility] [address] [place], [address] Absolute Neut 4.8 X10 3/uL Normal 2.0-7.7 [facility] Comment on above: Performed By: #### L 100.0100, L501.2300 ####[facility] [address] [place], [address] Basophils/100 WBC (Bld) 0.4 % Normal 0-1 [facility] Comment on above: Performed By: #### L 100.0100, L501.2300 ####[facility] [address] [place], [address] Eosinophils/100 WBC (Bld) 2.2 % Normal 0-5 [facility] Comment on above: Performed By: #### L 100.0100, L501.2300 ####[facility] [address] [place], [address] Erythrocyte distribution width (RBC) [Ratio] 14.3 % Normal 11.6-14.6 [facility] Comment on above: Performed By: #### L 100.0100, L501.2300 ####[facility] [address] [place], [address] Hematocrit (Bld) [Volume fraction] 35.1 % Low 37-47 [facility] Comment on above: Performed By: #### L 100.0100, L501.2300 ####[facility] [address] [place], [address] Hemoglobin (Bld) [Mass/Vol] 11.7 g/dL Low 12.0-15.0 [facility] Comment on above: Performed By: #### L 100.0100, L501.2300 ####[facility] [address] [place], [address] IG% 0.300 Normal 0.0-0.9 [facility] Comment on above: Result Comment: IG% - Immature Granulocytes (promyelocytes, myelocytes andmetamyelocytes) > 1% indicates that a LEFT SHIFT is Present. Performed By: #### L 100.0100, L501.2300 ####[facility] [address] [place], [address] Lymphocytes/100 WBC (Bld) 26.4 % Normal 19-41 [facility] Comment on above: Performed By: #### L 100.0100, L501.2300 ####[facility] [address] [place], [address] MCH (RBC) [Entitic mass] 27.1 pg Normal 27.0-32.0 [facility] Comment on above: Performed By: #### L 100.0100, L501.2300 ####[facility] [address] [place], [address] MCHC (RBC) [Mass/Vol] 33.3 g/dL Normal 32-36 [facility] Comment on above: Performed By: #### L 100.0100, L501.2300 ####[facility] [address] [place], [address] MCV (RBC) [Entitic vol] 81.3 fL Normal 81-99 [facility] Comment on above: Performed By: #### L 100.0100, L501.2300 ####[facility] [address] [place], [address] Monocytes/100 WBC (Bld) 5.9 % Normal 0-10 [facility] Comment on above: Performed By: #### L 100.0100, L501.2300 ####[facility] [address] [place], [address] Neutrophils/100 WBC (Bld) 64.8 % Normal 47-70 [facility] Comment on above: Performed By: #### L 100.0100, L501.2300 ####[facility] [address] [place], [address] Nucleated RBC (Bld) [#/Vol] 0 10*3/uL Normal 0-5 [facility] Comment on above: Performed By: #### L 100.0100, L501.2300 ####[facility] [address] [place], [address] Platelet mean volume (Bld) [Entitic vol] 9.3 fL Normal 6.2-12.0 [facility] Comment on above: Performed By: #### L 100.0100, L501.2300 ####[facility] [address] [place], [address] Platelets (Bld) [#/Vol] 340 10*3/uL Normal 150-450 [facility] Comment on above: Performed By: #### L 100.0100, L501.2300 ####[facility] [address] [place], [address] RBC (Bld) [#/Vol] 4.32 10*6/uL Normal 4.2-5.4 [facility] Comment on above: Performed By: #### L 100.0100, L501.2300 ####[facility] [address] [place], [address] RDW SD 42.0 fl Normal 35.1-43.9 [facility] Comment on above: Performed By: #### L 100.0100, L501.2300 ####[facility] [address] [place], [address] WBC (Bld) [#/Vol] 7.4 10*3/uL Normal 4.4-11.0 [facility] Comment on above: Performed By: #### L 100.0100, L501.2300 ####[facility] [address] [place], [address] CDIFF (PCR)on 02-20-2025 CDIFF Normal [facility] Comment on above: Performed By: #### M 100.0605, M100.6796, M100.637 ####[facility] [address] [place], [address] Comprehensive Metabolic Prof ilon 02-20-2025 Albumin [Mass/Vol] 3.0 g/dL Low 3.5-5.0 [facility] Comment on above: Performed By: #### L 300.3900, L501.5200, L500.4050 ####[facility] [address] [place], [address] Albumin/Globulin [Mass ratio] 1.1 {ratio} Normal 0.9-2.4 [facility] Comment on above: Performed By: #### L 300.3900, L501.5200, L500.4050 ####[facility] [address] [place], [address] ALK PHOS 154 U/L High 35-104 [facility] Comment on above: Performed By: #### L 300.3900, L501.5200, L500.4050 ####[facility] [address] [place], [address] ALT [Catalytic activity/Vol] 129 U/L High <=34 [facility] Comment on above: Performed By: #### L 300.3900, L501.5200, L500.4050 ####[facility] [address] [place], [address] AST [Catalytic activity/Vol] 288 U/L High <=31 [facility] Comment on above: Performed By: #### L 300.3900, L501.5200, L500.4050 ####[facility] [address] [place], [address] Bilirubin [Mass/Vol] 0.68 mg/dL Normal 0.00-1.30 [facility] Comment on above: Performed By: #### L 300.3900, L501.5200, L500.4050 ####[facility] [address] [place], [address] BUN/CRE 3.5 RATIO Low 10-20 [facility] Comment on above: Performed By: #### L 300.3900, L501.5200, L500.4050 ####[facility] [id number] [place], [address] Calcium [Mass/Vol] 7.3 mg/dL Low 7.6-11.0 [facility] Comment on above: Performed By: #### L 300.3900, L501.5200, L500.4050 ####[facility] [address] [place], [address] Chloride [Moles/Vol] 109 mmol/L High 98-108 [facility] Comment on above: Performed By: #### L 300.3900, L501.5200, L500.4050 ####[facility] [id number] [place], [address] CO2 [Moles/Vol] 20.7 mmol/L Low 21.0-32.0 [facility] Comment on above: Performed By: #### L 300.3900, L501.5200, L500.4050 ####[facility] [address] [place], [address] Creatinine [Mass/Vol] 0.84 mg/dL Normal 0.70-1.20 [facility] Comment on above: Performed By: #### L 300.3900, L501.5200, L500.4050 ####[facility] [address] [place], [address] ECRCL 99.18 ml/min Normal 50-250 [facility] Comment on above: Performed By: #### L 300.3900, L501.5200, L500.4050 ####[facility] [address] [place], [address] GAP 13 Normal 5-15 [facility] Comment on above: Performed By: #### L 300.3900, L501.5200, L500.4050 ####[facility] [address] [place], [address] GFR/1.73 sq M.predicted among non-blacks MDRD (S/P/Bld) [Vol rate/Area] 90 mL/min/{1.73_m2} Normal >60 [facility] Comment on above: Result Comment: mL/m in/1.73m2 CKD-EPI Creatinine Equation (2020) Performed By: #### L 300.3900, L501.5200, L500.4050 ####[facility] [address] [place], [address] Globulin (S) [Mass/Vol] 2.7 g/dL Normal 2.2-4.2 [facility] Comment on above: Performed By: #### L 300.3900, L501.5200, L500.4050 ####[facility] [address] [place], [address] Glucose [Mass/Vol] 100 mg/dL High 70-99 [facility] Comment on above: Performed By: #### L 300.3900, L501.5200, L500.4050 ####[facility] [address] [place], [address] Potassium [Moles/Vol] 2.1 mmol/L Invalid Interpretation Code 3.3-5.1 [facility] Comment on above: Result Comment: Crit ical Result(s) Called at: by: CLAUDIA GARZA??Resultsread back by same. Performed By: #### L 300.3900, L501.5200, L500.4050 ####[facility] [address] [place], [address] Sodium [Moles/Vol] 143 mmol/L Normal 133-145 [facility] Comment on above: Performed By: #### L 300.3900, L501.5200, L500.4050 ####[facility] [address] [place], [address] T PROT 5.7 g/dL Low 5.9-8.4 [facility] Comment on above: Performed By: #### L 300.3900, L501.5200, L500.4050 ####[facility] [address] [place], [address] Urea nitrogen [Mass/Vol] 3 mg/dL Low 4-19 [facility] Comment on above: Performed By: #### L 300.3900, L501.5200, L500.4050 ####[facility] [address] [place], [address] Folates,Serum (Folic Acid)on 02-20-2025 FOLATES,SERUM 13.60 ng/mL Normal 4.60-34.80 [facility] Comment on above: Order Comment: TY2 3 A Result Comment: Hemo lysis, Results will be affected, Requires Recollection. AMENDED REPORT 02/20/25 0009 FOLATES,SERUM previously reported as: 13.60 ng/mL Performed By: #### L 501.9520, L503.6550, L506.0200, L503.6030, L3000.0375 ####[facility] [address] [place], [address] Iron+Iron Binding Capacityon 02-20-2025 Iron [Mass/Vol] 68 ug/dL Normal 50-170 [facility] Comment on above: Performed By: #### L 501.9520, L503.6550, L506.0200, L503.6030, L3000.0375 ####[facility] [address] [place], [address] IRON SATURATION 23.0 Normal 13-59 [facility] Comment on above: Performed By: #### L 501.9520, L503.6550, L506.0200, L503.6030, L3000.0375 ####[facility] [address] [place], [address] TIBC 299 ug/dL Normal 250-450 [facility] Comment on above: Performed By: #### L 501.9520, L503.6550, L506.0200, L503.6030, L3000.0375 ####[facility] [address] [place], [address] UIBC 231 ug/dL Normal 228-428 [facility] Comment on above: Performed By: #### L 501.9520, L503.6550, L506.0200, L503.6030, L3000.0375 ####[facility] [address] [place], [address] L501.2276on 02-20-2025 Ionized Calcium 1.06 mmol/L Low 1.09-1.30 [facility] Comment on above: Performed By: #### L 501.2276 ####[facility] [address] [place], [address] Magnesiumon 02-20-2025 Magnesium [Mass/Vol] 2.0 mg/dL Normal 1.5-2.2 [facility] Comment on above: Performed By: #### L 300.3900, L501.5200, L500.4050 ####[facility] [address] [place], [address] Phosphoruson 02-20-2025 Phosphate [Mass/Vol] 3.6 mg/dL Normal 2.7-4.5 [facility] Comment on above: Performed By: #### L 100.0100, L501.2300 ####[facility] [address] [place], [address] Prothrombin Time w/INRon INR Coag (PPP) [Relative time] 1.5 {INR} Normal [facility] Comment on above: Performed By: #### L 300.3900, L501.5200, L500.4050 ####[facility] [address] [place], [address] PT Coag (PPP) [Time] 18.8 s High 11.7-14.9 [facility] Comment on above: Performed By: #### L 300.3900, L501.5200, L500.4050 ####[facility] [address] [place], [address] Stool Lactoferrin/WBCon 01-26 WBCST Normal [facility] Comment on above: Performed By: #### M 100.0605, M100.6796, M100.637 ####[facility] [address] [place], [address] Stool Occult Blood iFOBon STOB Negative Normal [facility] Comment on above: Performed By: #### M 100.7900 ####[facility] [address] [place], [address] Vitamin B12on 02-20-2025 Cobalamin (Vitamin B12) [Mass/Vol] 471 pg/mL Normal 180-914 [facility] Comment on above: Performed By: #### L 503.0106 ####[facility] [address] [place], [address] CBC W/Diff, Automatedon 01-26 Absolute Lymph 2.51 X10 3/uL Normal 0.83-4.51 [facility] Comment on above: Performed By: #### L 100.0100, L503.6005, L500.4050, L501.2450, L501.3620 ####[facility] [address] [place], [address] Absolute Neut 6.1 X10 3/uL Normal 2.0-7.7 [facility] Comment on above: Performed By: #### L 100.0100, L503.6005, L500.4050, L501.2450, L501.3620 ####[facility] [address] [place], [address] Basophils/100 WBC (Bld) 0.5 % Normal 0-1 [facility] Comment on above: Performed By: #### L 100.0100, L503.6005, L500.4050, L501.2450, L501.3620 ####[facility] [address] [place], [address] Eosinophils/100 WBC (Bld) 1.4 % Normal 0-5 [facility] Comment on above: Performed By: #### L 100.0100, L503.6005, L500.4050, L501.2450, L501.3620 ####[facility] [address] [place], [address] Erythrocyte distribution width (RBC) [Ratio] 14.3 % Normal 11.6-14.6 [facility] Comment on above: Performed By: #### L 100.0100, L503.6005, L500.4050, L501.2450, L501.3620 ####[facility] [address] [place], [address] Hematocrit (Bld) [Volume fraction] 38.8 % Normal 37-47 [facility] Comment on above: Performed By: #### L 100.0100, L503.6005, L500.4050, L501.2450, L501.3620 ####[facility] [address] [place], [address] Hemoglobin (Bld) [Mass/Vol] 13.0 g/dL Normal 12.0-15.0 [facility] Comment on above: Performed By: #### L 100.0100, L503.6005, L500.4050, L501.2450, L501.3620 ####[facility] [address] [place], [address] IG% 0.300 Normal 0.0-0.9 [facility] Comment on above: Result Comment: IG% - Immature Granulocytes (promyelocytes, myelocytes andmetamyelocytes) > 1% indicates that a LEFT SHIFT is Present. Performed By: #### L 100.0100, L503.6005, L500.4050, L501.2450, L501.3620 ####[facility] [address] [place], [address] Lymphocytes/100 WBC (Bld) 26.5 % Normal 19-41 [facility] Comment on above: Performed By: #### L 100.0100, L503.6005, L500.4050, L501.2450, L501.3620 ####[facility] [address] [place], [address] MCH (RBC) [Entitic mass] 27.3 pg Normal 27.0-32.0 [facility] Comment on above: Performed By: #### L 100.0100, L503.6005, L500.4050, L501.2450, L501.3620 ####[facility] [address] [place], [address] MCHC (RBC) [Mass/Vol] 33.5 g/dL Normal 32-36 [facility] Comment on above: Performed By: #### L 100.0100, L503.6005, L500.4050, L501.2450, L501.3620 ####[facility] [address] [place], [address] MCV (RBC) [Entitic vol] 81.5 fL Normal 81-99 [facility] Comment on above: Performed By: #### L 100.0100, L503.6005, L500.4050, L501.2450, L501.3620 ####[facility] [address] [place], [address] Monocytes/100 WBC (Bld) 7.3 % Normal 0-10 [facility] Comment on above: Performed By: #### L 100.0100, L503.6005, L500.4050, L501.2450, L501.3620 ####[facility] [address] [place], [address] Neutrophils/100 WBC (Bld) 64.0 % Normal 47-70 [facility] Comment on above: Performed By: #### L 100.0100, L503.6005, L500.4050, L501.2450, L501.3620 ####[facility] [address] [place], [address] Nucleated RBC (Bld) [#/Vol] 0 10*3/uL Normal 0-5 [facility] Comment on above: Performed By: #### L 100.0100, L503.6005, L500.4050, L501.2450, L501.3620 ####[facility] [address] [place], [address] Platelet mean volume (Bld) [Entitic vol] 9.1 fL Normal 6.2-12.0 [facility] Comment on above: Performed By: #### L 100.0100, L503.6005, L500.4050, L501.2450, L501.3620 ####[facility] [address] [place], [address] Platelets (Bld) [#/Vol] 365 10*3/uL Normal 150-450 [facility] Comment on above: Performed By: #### L 100.0100, L503.6005, L500.4050, L501.2450, L501.3620 ####[facility] [address] [place], [address] RBC (Bld) [#/Vol] 4.76 10*6/uL Normal 4.2-5.4 [facility] Comment on above: Performed By: #### L 100.0100, L503.6005, L500.4050, L501.2450, L501.3620 ####[facility] [address] [place], [address] RDW SD 42.4 fl Normal 35.1-43.9 [facility] Comment on above: Performed By: #### L 100.0100, L503.6005, L500.4050, L501.2450, L501.3620 ####[facility] [address] [place], [address] WBC (Bld) [#/Vol] 9.5 10*3/uL Normal 4.4-11.0 [facility] Comment on above: Performed By: #### L 100.0100, L503.6005, L500.4050, L501.2450, L501.3620 ####[facility] [address] [place], [address] CPK Total, Creatine Kinaseon 02-19-2025 CPK TOTAL 700 U/L High 24-195 [facility] Comment on above: Performed By: #### L 100.0100, L503.6005, L500.4050, L501.2450, L501.3620 ####[facility] [address] [place], [address] CTA Abd w/Runoff W/WO Contra ston 02-19-2025 CTA Abd w/Runoff W/WO Contrast Normal [facility] Comprehensive Metabolic Prof ilon 02-19-2025 Potassium [Moles/Vol] 2.1 mmol/L Invalid Interpretation Code 3.3-5.1 [facility] Comment on above: Result Comment: Crit ical Result(s) Called MMARTIN at: 1934 by:SARBJIT??Results read back by same.Critical Result(s) Called at: by:??Results read back byme. AMENDED REPORT 02/19/251953 K previously reported as: 2.1 *L mmol/LCritical Result(s) Called MMARTIN at: 1934 by:SARBJIT??Results read back by same. Performed By: #### L 100.0100, L503.6005, L500.4050, L501.2450, L501.3620 ####[facility] [address] [place], [address] Emergency Department Summary on 02-19-2025 Emergency Department Summary Normal [facility] Ferritinon 02-19-2025 Ferritin [Mass/Vol] 47 ng/mL Normal 22-378 [facility] Comment on above: Performed By: #### L 501.9520, L503.6550, L506.0200, L503.6030, L3000.0375 ####[facility] [address] [place], [address] H AND P Exam - Hospitaliston 02-19-2025 H&P Exam - Hospitalist Normal [facility] Lactic Acidon 02-19-2025 Lactate [Moles/Vol] 1.4 mmol/L Normal 0.0-2.0 [facility] Comment on above: Performed By: #### L 503.6005 ####[facility] [address] [place], [address] Lactate [Moles/Vol] 2.3 mmol/L Invalid Interpretation Code 0.0-2.0 [facility] Comment on above: Order Comment: Y Result Comment: Crit ical Result(s) Called MMARTIN at: 1935 by:SARBJIT??Results read back by same. Performed By: #### L 100.0100, L503.6005, L500.4050, L501.2450, L501.3620 ####[facility] [address] [place], [address] Lipaseon 02-19-2025 Lipase [Catalytic activity/Vol] 12 U/L Low 13-75 [facility] Comment on above: Result Comment: Rivera damon note:LIPASE revised reference range effective 22.New Lipase methodology. Expected to produce lower valuesthan the previous assay method.NEW Reference Range: 13 - 75 U/L Performed By: #### L 100.0100, L503.6005, L500.4050, L501.2450, L501.3620 ####[facility] [address] [place], [address] Magnesiumon 02-19-2025 Magnesium [Mass/Vol] 0.8 mg/dL Invalid Interpretation Code 1.5-2.2 [facility] Comment on above: Result Comment: Crit ical Result(s) Called ALAALIZE at: 8 by:SARBJIT??Results read back by same. Performed By: #### L 501.5200 ####[facility] [address] [place], [address] Partial Thromboplast Timeon 02-19-2025 aPTT Coag (Bld) [Time] 30.6 s Normal 24.1-36.2 [facility] Comment on above: Performed By: #### L 300.3900, L300.4310 ####[facility] [address] [place], [address] ,Serum,hCG Quali.on 02-19-2025 HCG, SERUM QUAL Negative Normal [facility] Comment on above: Performed By: #### L 700.6800 ####[facility] [address] [place], [address] Prothrombin Time w/INRon INR Coag (PPP) [Relative time] 1.4 {INR} Normal [facility] Comment on above: Performed By: #### L 300.3900, L300.4310 ####[facility] [address] [place], [address] PT Coag (PPP) [Time] 17.9 s High 11.7-14.9 [facility] Comment on above: Performed By: #### L 300.3900, L300.4310 ####[facility] [address] [place], [address] Thyroid Stim Hormone (TSH)on 02-19-2025 TSH 2.560 uIU/mL Normal 0.300-4.200 [facility] Comment on above: Performed By: #### L 501.9520, L503.6550, L506.0200, L503.6030, L3000.0375 ####[facility] [address] [place], [address] Urinalysis, Completeon 02-19 EPI,SQUAMOUS 0-5 SEEN Normal 5-10 [facility] Comment on above: Order Comment: CLEAN CATCH Performed By: #### L 400.0001 ####[facility] [address] [place], [address] WBC 0-5 SEEN Normal 0-5 [facility] Comment on above: Order Comment: CLEAN CATCH Performed By: #### L 400.0001 ####[facility] [address] [place], [address] BACTERIA 0 SEEN Normal None Seen [facility] Comment on above: Order Comment: CLEAN CATCH Performed By: #### L 400.0001 ####[facility] [address] [place], [address] Mucus Ql (Urine sed) 0 SEEN Normal [facility] Comment on above: Order Comment: CLEAN CATCH Performed By: #### L 400.0001 ####[facility] [address] [place], [address] RBC 0 SEEN Normal 0-5 [facility] Comment on above: Order Comment: CLEAN CATCH Performed By: #### L 400.0001 ####[facility] [address] [place], [address] BACTERIA Normal None Seen [facility] Comment on above: Order Comment: COLLE CTOR TO SPECIFY Result Comment: DUPL ICATE ORDER Performed By: #### L 400.0001 ####[facility] [address] [place], [address] BILIRUBIN URINE Normal Negative [facility] Comment on above: Order Comment: COLLE CTOR TO SPECIFY Result Comment: DUPL ICATE ORDER Performed By: #### L 400.0001 ####[facility] [address] [place], [address] Clarity (U) Normal Clear [facility] Comment on above: Order Comment: COLLE CTOR TO SPECIFY Result Comment: DUPL ICATE ORDER Performed By: #### L 400.0001 ####[facility] [address] [place], [address] Color (U) Normal Yellow [facility] Comment on above: Order Comment: COLLE CTOR TO SPECIFY Result Comment: DUPL ICATE ORDER Performed By: #### L 400.0001 ####[facility] [address] [place], [address] EPI,SQUAMOUS Normal 5-10 [facility] Comment on above: Order Comment: COLLE CTOR TO SPECIFY Result Comment: DUPL ICATE ORDER Performed By: #### L 400.0001 ####[facility] [address] [place], [address] GLUCOSE, UR Normal Normal [facility] Comment on above: Order Comment: COLLE CTOR TO SPECIFY Result Comment: DUPL ICATE ORDER Performed By: #### L 400.0001 ####[facility] [address] [place], [address] KETONE UR Normal Negative [facility] Comment on above: Order Comment: COLLE CTOR TO SPECIFY Result Comment: DUPL ICATE ORDER Performed By: #### L 400.0001 ####[facility] [address] [place], [address] LEUK ESTERASE Normal Negative [facility] Comment on above: Order Comment: COLLE CTOR TO SPECIFY Result Comment: DUPL ICATE ORDER Performed By: #### L 400.0001 ####[facility] [address] [place], [address] Mucus Ql (Urine sed) Normal [facility] Comment on above: Order Comment: COLLE CTOR TO SPECIFY Result Comment: DUPL ICATE ORDER Performed By: #### L 400.0001 ####[facility] [address] [place], [address] Nitrite Ql (U) Normal Negative [facility] Comment on above: Order Comment: COLLE CTOR TO SPECIFY Result Comment: DUPL ICATE ORDER Performed By: #### L 400.0001 ####[facility] [address] [place], [address] OCCULT BLOOD-UR Normal Negative [facility] Comment on above: Order Comment: COLLE CTOR TO SPECIFY Result Comment: DUPL ICATE ORDER Performed By: #### L 400.0001 ####[facility] [address] [place], [address] pH UR Normal 5.0 - 8.0 [facility] Comment on above: Order Comment: COLLE CTOR TO SPECIFY Result Comment: DUPL ICATE ORDER Performed By: #### L 400.0001 ####[facility] [address] [place], [address] PROT DIPSTX Normal Negative [facility] Comment on above: Order Comment: COLLE CTOR TO SPECIFY Result Comment: DUPL ICATE ORDER Performed By: #### L 400.0001 ####[facility] [address] [place], [address] RBC Normal 0-5 [facility] Comment on above: Order Comment: COLLE CTOR TO SPECIFY Result Comment: DUPL ICATE ORDER Performed By: #### L 400.0001 ####[facility] [address] [place], [address] SP.GR. DIPSTX Normal 1.002-1.030 [facility] Comment on above: Order Comment: COLLE CTOR TO SPECIFY Result Comment: DUPL ICATE ORDER Performed By: #### L 400.0001 ####[facility] [address] [place], [address] UR Preservative Normal [facility] Comment on above: Order Comment: COLLE CTOR TO SPECIFY Result Comment: DUPL ICATE ORDER Performed By: #### L 400.0001 ####[facility] [address] [place], [address] UROBILI Normal Normal [facility] Comment on above: Order Comment: LEO CTOR TO SPECIFY Result Comment: DUPL ICATE ORDER Performed By: #### L 400.0001 ####[facility] [address] [place], [address] WBC Normal 0-5 [facility] Comment on above: Order Comment: COLLE CTOR TO SPECIFY Result Comment: DUPL ICATE ORDER Performed By: #### L 400.0001 ####[facility] [address] [place], [address] Urine Drug Screen (VISTA)on 02-19-2025 AMPHETAMINES Negative Normal <1000 ng/mL [facility] Comment on above: Performed By: #### L 505.5000 ####[facility] [address] [facility] [address] BARBITIURATES Negative Normal < 200 ng/mL [facility] Comment on above: Performed By: #### L 505.5000 ####[facility] [address] [facility] [address] BENZODIAZIPINE Positive Normal < 200 ng/mL [facility] Comment on above: Result Comment: If c onfirmation testing is needed, a separate order will berequired to send out testing to the reference laboratory. Performed By: #### L 505.5000 ####[facility] [address] [place], [address] BUP Ur Drug Scr Negative Normal < 200 ng/mL [facility] Comment on above: Performed By: #### L 505.5000 ####[facility] [address] [facility] [address] COCAINE Negative Normal < 300 ng/mL [facility] Comment on above: Performed By: #### L 505.5000 ####[facility] [address] [facility] [address] Fentanyl Negative Normal <5 ng/mL [facility] Comment on above: Result Comment: CONF [...] testmnemonic: [facility] Performed By: #### L 505.5000 ####[facility] [address] [place] [address] METHADONE Negative Normal < 300 ng/mL [facility] Comment on above: Performed By: #### L 505.5000 ####[facility] [address] [place] [address] OPIATES Negative Normal < 300 ng/mL [facility] Comment on above: Performed By: #### L 505.5000 ####[facility] [address] [place], [address] OXYCODONE Negative Normal < 100 ng/mL [facility] Comment on above: Performed By: #### L 505.5000 ####[facility] [address] [place], [address] PCP Negative Normal < 25 ng/mL [facility] Comment on above: Performed By: #### L 505.5000 ####[facility] [address] [place] [address] THC Negative Normal < 50 ng/mL [facility] Comment on above: Performed By: #### L 505.5000 ####[facility] [address] [place] [address] Wound Ctr History AND Physic dorothy 01-17-2025 Wound Ctr History & Physical Normal [facility] L3410.9994on 01-15-2025 [facility] Mis. 2 COMMENT Normal . [facility] Comment on above: Order Comment: 71986 0SELENIUM - ROYAL BLUE - PLASMA Result Comment: Test Ordered: [id number] Selenium, Serum/PlasmaTest(s) 286305-Tpwnnkpp, Serum/Plasmawas developed and its performance characteristicsdetermined by [employer]. It has not been cleared or approvedby the Food and Drug Administration.Selenium, Serum/Plasma 100 ug/L Reference Range: 93-198Performed at: [address] [id number] Director: Kim Mayorga MD, Phone: [phone] at: [address] [id number] Director: Christian Alfaro PhD, Phone: [phone] Performed By: #### L 100.0500, L500.4050, L501.2300, L501.5000, L501.5200, L501.6710, L503.0106, L506.1001, L3300.0100, L3300.8200, L3300.9900, L3410.9992, L7400.3000, L3410.9996, L3410.9994 ####[facility] [address] [place], [place], [address] L3410.9996on 01-13-2025 [facility]. 3 COMMENT Normal . [facility] Comment on above: Order Comment: 22165 9VITAMIN A E - SERUM Result Comment: Test Ordered: [id number] Vitamin A and ETest(s) 810825-Bxzjvow E(Alpha Tocopherol); 046344-Txtrivu E(Gamma Tocopherol)was developed and its performance characteristicsdetermined [...] was developed and its performance characteristicsdetermined by [employer]. It has not been cleared orapproved by the Food and Drug Administration.Vitamin E(Alpha Tocopherol) 7.8 mg/L Reference Range: 7.0-25.1Vitamin E(Gamma Tocopherol) 1.1 mg/L Reference Range: 0.5-5.5Reference intervals for alpha and gamma-tocopheroldetermined from National Health and Nutrition ExaminationSurvey, 7247-7071. Individuals with alpha-tocopherol levelsless than 5.0 mg/L are considered vitamin E deficient.Performed at: [address] [id number] Director: iKm Mayorga MD, Phone: [phone] at: [address] [id number] Director: Christian Alfaro PhD, Phone: [phone] Performed By: #### L 100.0500, L500.4050, L501.2300, L501.5000, L501.5200, L501.6710, L503.0106, L506.1001, L3300.0100, L3300.8200, L3300.9900, L3410.9992, L7400.3000, L3410.9996, L3410.9994 ####[facility] [address] [place], [place], [address] Methylmalonic Acid [facility] METHYLMAL ACID 239 nmol/L Normal 0-378 [facility] Comment on above: Order Comment: Test( s) 790197-Rtglnoulhngme Acid, Serumwas developed and its performance characteristicsdetermined by [employer] It has not been cleared or approvedby the Food and Drug Administration. Result Comment: Perf ormed at: [address] [id number] Director: Kim Mayorga MD, Phone: [phone] Performed By: #### L 100.0500, L500.4050, L501.2300, L501.5000, L501.5200, L501.6710, L503.0106, L506.1001, L3300.0100, L3300.8200, L3300.9900, L3410.9992, L7400.3000, L3410.9996, L3410.9994 ####[facility] [address] [place], [place], [id number] Copper, Serum or Plasmaon COPPER, SERUM 131 ug/dL Normal 80-158 [facility] Comment on above: Order Comment: Test( s) 524208-Wilrnco B6was developed and its performance characteristicsdetermined by [employer]. It has not been cleared or approvedby the Food and Drug Administration. Result Comment: Dete ction Limit = 5 Performed By: #### L 100.0500, L500.4050, L501.2300, L501.5000, L501.5200, L501.6710, L503.0106, L506.1001, L3300.0100, L3300.8200, L3300.9900, L3410.9992, L7400.3000, L3410.9996, L3410.9994 ####[facility] [address] [place], [place], [address] L3300.8200on 01-12-2025 VITAMIN B6 1.2 ug/L Low 3.4-65.2 [facility] Comment on above: Order Comment: Test( s) 876849-Gngqdnq B6was developed and its performance characteristicsdetermined by [employer]. It has not been cleared or approvedby the Food and Drug Administration. Result Comment: Defi ciency: <3.4 Marginal: 3.4 - 5.1 Adequate: >5.1 Performed By: #### L 100.0500, L500.4050, L501.2300, L501.5000, L501.5200, L501.6710, L503.0106, L506.1001, L3300.0100, L3300.8200, L3300.9900, L3410.9992, L7400.3000, L3410.9996, L3410.9994 ####[facility] [address] [place], [address] L3410.9992on 01-12-2025 [facility]. COMMENT Normal . [facility] Comment on above: Order Comment: 59300 5WB MANGANESE - ROYAL BLUE - WB Result Comment: Test Ordered: [id number] Manganese, BloodTest(s) 798265-Ostqhacer, Bloodwas developed and its performance characteristicsdetermined by [employer] It has not been cleared or approvedby the Food and Drug Administration.Manganese, Blood 8.8 ug/L [facility] Reference Range: 8.0-18.7Performed at: [facility] [address] Raheem [place] [address], [place] [id number] Director: Wendy Fowler MD, Phone: [phone] at: [facility] [employer] [id number] Director: Christian Alfaro PhD, Phone: [phone] Performed By: #### L 100.0500, L500.4050, L501.2300, L501.5000, L501.5200, L501.6710, L503.0106, L506.1001, L3300.0100, L3300.8200, L3300.9900, L3410.9992, L7400.3000, L3410.9996, L3410.9994 ####[facility] [address] [place], [address] Zinc, Plasma or Serumon 12-25 ZINC,PLASMA/SER 71 ug/dL Normal 44-115 [facility] Comment on above: Order Comment: Test( s) 002401-Eetuixa B6was developed and its performance characteristicsdetermined by [employer]. It has not been cleared or approvedby the Food and Drug Administration. Result Comment: Dete ction Limit = 5Performed at: [facility] [address] [id number] Director: Kim Mayorga MD, Phone: [phone] Performed By: #### L 100.0500, L500.4050, L501.2300, L501.5000, L501.5200, L501.6710, L503.0106, L506.1001, L3300.0100, L3300.8200, L3300.9900, L3410.9992, L7400.3000, L3410.9996, L3410.9994 ####[facility] [address] [place], [place], [address] Basic metabolic 2000 panelon 01-11-2025 Anion gap [Moles/Vol] 16 mmol/L High 8 - 15 mmol/L [facility] Calcium [Mass/Vol] 9.6 mg/dL 8.5 - 10. 2 mg/dL [facility] Chloride [Moles/Vol] 104 mmol/L 98 - 107 mmol/L [facility] CO2 [Moles/Vol] 21 mmol/L Low 22 - 30 mmol/L [facility] Creatinine [Mass/Vol] 0.91 mg/dL 0.58 - 0.96 mg/dL [facility] GFR/1.73 sq M.predicted among non-blacks MDRD (S/P/Bld) [Vol rate/Area] 81 mL/min/{1.73_m2} - PINF [facility] Comment on above: Estimated Glomerular Filtration [...] [Mass/Vol] 99 mg/dL 74 - 99 mg/dL [facility] Comment on above: The [place] [employer] (ADA) provides guidance for [...] Standards of Medical Care in Diabetes 2016, [place] [employer]. Diabetes Care. 2016.39(Suppl 1). Interpretation and review of laboratory results Abnormal [facility] Potassium [Moles/Vol] 3.4 mmol/L Low 3.7 - 5.1 mmol/L [facility] Sodium [Moles/Vol] 141 mmol/L 136 - 144 mmol/L [facility] Urea nitrogen [Mass/Vol] 17 mg/dL 7 - 21 mg/dL [facility] CBC W Auto Differential pane l (Bld)on 01-10-2025 Basophils (Bld) [#/Vol] 0.04 10*3/uL [facility] Basophils/100 WBC (Bld) 0.5 % [facility] Differential cell count method Nom (Bld) Auto [facility] Eosinophils (Bld) [#/Vol] 0.16 10*3/uL [facility] Eosinophils/100 WBC (Bld) 2 % [facility] Erythrocyte distribution width (RBC) [Ratio] 16 % High 11.5 - 15.0 % [facility] Hematocrit (Bld) [Volume fraction] 37.7 % 36.0 - 46.0 % [facility] Hemoglobin (Bld) [Mass/Vol] 12.2 g/dL 11.5 - 15.5 g/dL [facility] Immature granulocytes (Bld) [#/Vol] 0.03 10*3/uL [facility] Immature granulocytes/100 WBC (Bld) 0.4 % [facility] Interpretation and review of laboratory results Abnormal [facility] Lymphocytes (Bld) [#/Vol] 2.59 10*3/uL [facility] Lymphocytes/100 WBC (Bld) 32.4 % [facility] MCH (RBC) [Entitic mass] 27 pg 26.0 - 34.0 pg [facility] MCHC (RBC) [Mass/Vol] 32.4 g/dL 30.5 - 36.0 g/dL [facility] MCV (RBC) [Entitic vol] 83.4 fL 80.0 - 100.0 fL [facility] Monocytes (Bld) [#/Vol] 0.63 10*3/uL NINF [facility] Monocytes/100 WBC (Bld) 7.9 % [facility] Neutrophils (Bld) [#/Vol] 4.55 10*3/uL [facility] Neutrophils/100 WBC (Bld) 56.8 % [facility] Nucleated RBC (Bld) [#/Vol] NINF [facility] Nucleated RBC/100 WBC (Bld) [Ratio] 0 % /100 WBC [facility] Platelet mean volume (Bld) [Entitic vol] 10.1 fL 9.0 - 12.7 fL [facility] Platelets (Bld) [#/Vol] 332 10*3/uL [facility] RBC (Bld) [#/Vol] 4.52 10*6/uL 3.90 - 5.2 0 m/uL [facility] WBC (Bld) [#/Vol] 8 10*3/uL [facility] PT panel Coag (PPP)on 2024 INR Coag (PPP) [Relative time] 1.1 {INR} 0.9 - 1.3 [facility] Comment on above: Vitamin K Antagonist (VKA) Therapeutic Range: INR 2 to 3 (Target INR of 2.5) Note: For patients treated with VKA drugs, such as warfarin, the [place] [employer] 2012 Guideline recommends [...] GH, et al. Chest 2012, 141:7S-47S Markel BASS et al. [facility] 2017, 70: 252-289 Interpretation and review of laboratory results Normal [facility] PT Coag (PPP) [Time] 11.4 s [facility] CBC-Complete Blood Cnt No Di ffon 01-08-2025 Erythrocyte distribution width (RBC) [Ratio] 16.0 % High 11.6-14.6 [facility] Comment on above: Performed By: #### L 100.0500, L500.4050, L501.2300, L501.5000, L501.5200, L501.6710, L503.0106, L506.1001, L3300.0100, L3300.8200, L3300.9900, L3410.9992, L7400.3000, L3410.9996, L3410.9994 ####[facility] [address] [place], [place], [phone](729) Hematocrit (Bld) [Volume fraction] 35.9 % Low 37-47 [facility] Comment on above: Performed By: #### L 100.0500, L500.4050, L501.2300, L501.5000, L501.5200, L501.6710, L503.0106, L506.1001, L3300.0100, L3300.8200, L3300.9900, L3410.9992, L7400.3000, L3410.9996, L3410.9994 ####[facility] [address] [place], [place], [phone](245) Hemoglobin (Bld) [Mass/Vol] 11.9 g/dL Low 12.0-15.0 [facility] Comment on above: Performed By: #### L 100.0500, L500.4050, L501.2300, L501.5000, L501.5200, L501.6710, L503.0106, L506.1001, L3300.0100, L3300.8200, L3300.9900, L3410.9992, L7400.3000, L3410.9996, L3410.9994 ####[facility] [address] [place], [place], [phone](882) MCH (RBC) [Entitic mass] 27.1 pg Normal 27.0-32.0 [facility] Comment on above: Performed By: #### L 100.0500, L500.4050, L501.2300, L501.5000, L501.5200, L501.6710, L503.0106, L506.1001, L3300.0100, L3300.8200, L3300.9900, L3410.9992, L7400.3000, L3410.9996, L3410.9994 ####[facility] [address] [place], [address] MCHC (RBC) [Mass/Vol] 33.1 g/dL Normal 32-36 [facility] Comment on above: Performed By: #### L 100.0500, L500.4050, L501.2300, L501.5000, L501.5200, L501.6710, L503.0106, L506.1001, L3300.0100, L3300.8200, L3300.9900, L3410.9992, L7400.3000, L3410.9996, L3410.9994 ####[facility] [address] [place], [address] MCV (RBC) [Entitic vol] 81.8 fL Normal 81-99 [facility] Comment on above: Performed By: #### L 100.0500, L500.4050, L501.2300, L501.5000, L501.5200, L501.6710, L503.0106, L506.1001, L3300.0100, L3300.8200, L3300.9900, L3410.9992, L7400.3000, L3410.9996, L3410.9994 ####[facility] [address] [place], [address] Platelet mean volume (Bld) [Entitic vol] 9.7 fL Normal 6.2-12.0 [facility] Comment on above: Performed By: #### L 100.0500, L500.4050, L501.2300, L501.5000, L501.5200, L501.6710, L503.0106, L506.1001, L3300.0100, L3300.8200, L3300.9900, L3410.9992, L7400.3000, L3410.9996, L3410.9994 ####[facility] [address] [place], [place], [phone](528) Platelets (Bld) [#/Vol] 257 10*3/uL Normal 150-450 [facility] Comment on above: Performed By: #### L 100.0500, L500.4050, L501.2300, L501.5000, L501.5200, L501.6710, L503.0106, L506.1001, L3300.0100, L3300.8200, L3300.9900, L3410.9992, L7400.3000, L3410.9996, L3410.9994 ####[facility] [address] [place], [place], [phone](222) RBC (Bld) [#/Vol] 4.39 10*6/uL Normal 4.2-5.4 [facility] Comment on above: Performed By: #### L 100.0500, L500.4050, L501.2300, L501.5000, L501.5200, L501.6710, L503.0106, L506.1001, L3300.0100, L3300.8200, L3300.9900, L3410.9992, L7400.3000, L3410.9996, L3410.9994 ####[facility] [address] [place], [place], [phone](567) RDW SD 47.8 fl High 35.1-43.9 [facility] Comment on above: Performed By: #### L 100.0500, L500.4050, L501.2300, L501.5000, L501.5200, L501.6710, L503.0106, L506.1001, L3300.0100, L3300.8200, L3300.9900, L3410.9992, L7400.3000, L3410.9996, L3410.9994 ####[facility] [address] [place], [place], [address] WBC (Bld) [#/Vol] 6.3 10*3/uL Normal 4.4-11.0 [facility] Comment on above: Performed By: #### L 100.0500, L500.4050, L501.2300, L501.5000, L501.5200, L501.6710, L503.0106, L506.1001, L3300.0100, L3300.8200, L3300.9900, L3410.9992, L7400.3000, L3410.9996, L3410.9994 ####[facility] [address] [place], [place], [phone] CRPon 01-08-2025 C-REACTIVE PROT 16.50 mg/L High 0.0-3.0 [facility] Comment on above: Performed By: #### L 100.0500, L500.4050, L501.2300, L501.5000, L501.5200, L501.6710, L503.0106, L506.1001, L3300.0100, L3300.8200, L3300.9900, L3410.9992, L7400.3000, L3410.9996, L3410.9994 ####[facility] [address] [place], [place], [address] Comprehensive Metabolic Prof ilon 01-08-2025 Albumin [Mass/Vol] 3.5 g/dL Normal 3.5-5.0 [facility] Comment on above: Performed By: #### L 100.0500, L500.4050, L501.2300, L501.5000, L501.5200, L501.6710, L503.0106, L506.1001, L3300.0100, L3300.8200, L3300.9900, L3410.9992, L7400.3000, L3410.9996, L3410.9994 ####[facility] [address] [place], [place], [phone] Albumin/Globulin [Mass ratio] 0.9 {ratio} Normal 0.9-2.4 [facility] Comment on above: Performed By: #### L 100.0500, L500.4050, L501.2300, L501.5000, L501.5200, L501.6710, L503.0106, L506.1001, L3300.0100, L3300.8200, L3300.9900, L3410.9992, L7400.3000, L3410.9996, L3410.9994 ####[facility] [address] [place] [place], [address] ALK PHOS 141 U/L High 35-104 [facility] Comment on above: Performed By: #### L 100.0500, L500.4050, L501.2300, L501.5000, L501.5200, L501.6710, L503.0106, L506.1001, L3300.0100, L3300.8200, L3300.9900, L3410.9992, L7400.3000, L3410.9996, L3410.9994 ####[facility] [address] [place], [place], [phone] ALT [Catalytic activity/Vol] 16 U/L Normal <=34 [facility] Comment on above: Performed By: #### L 100.0500, L500.4050, L501.2300, L501.5000, L501.5200, L501.6710, L503.0106, L506.1001, L3300.0100, L3300.8200, L3300.9900, L3410.9992, L7400.3000, L3410.9996, L3410.9994 ####[facility] [address] [place], [place], [phone] AST [Catalytic activity/Vol] 18 U/L Normal <=31 [facility] Comment on above: Performed By: #### L 100.0500, L500.4050, L501.2300, L501.5000, L501.5200, L501.6710, L503.0106, L506.1001, L3300.0100, L3300.8200, L3300.9900, L3410.9992, L7400.3000, L3410.9996, L3410.9994 ####[facility] [address] [place], [place], [phone] Bilirubin [Mass/Vol] 0.44 mg/dL Normal 0.00-1.30 [facility] Comment on above: Performed By: #### L 100.0500, L500.4050, L501.2300, L501.5000, L501.5200, L501.6710, L503.0106, L506.1001, L3300.0100, L3300.8200, L3300.9900, L3410.9992, L7400.3000, L3410.9996, L3410.9994 ####[facility] [address] [place], [address] BUN/CRE 17.3 RATIO Normal 10-20 [facility] Comment on above: Performed By: #### L 100.0500, L500.4050, L501.2300, L501.5000, L501.5200, L501.6710, L503.0106, L506.1001, L3300.0100, L3300.8200, L3300.9900, L3410.9992, L7400.3000, L3410.9996, L3410.9994 ####[facility] [address] [place], [place], [phone] Calcium [Mass/Vol] 9.0 mg/dL Normal 7.6-11.0 [facility] Comment on above: Performed By: #### L 100.0500, L500.4050, L501.2300, L501.5000, L501.5200, L501.6710, L503.0106, L506.1001, L3300.0100, L3300.8200, L3300.9900, L3410.9992, L7400.3000, L3410.9996, L3410.9994 ####[facility] [address] [place], [place], [phone](898) Chloride [Moles/Vol] 101 mmol/L Normal 98-108 [facility] Comment on above: Performed By: #### L 100.0500, L500.4050, L501.2300, L501.5000, L501.5200, L501.6710, L503.0106, L506.1001, L3300.0100, L3300.8200, L3300.9900, L3410.9992, L7400.3000, L3410.9996, L3410.9994 ####[facility] [address] [facility] [place], [place], [phone](201) CO2 [Moles/Vol] 19.2 mmol/L Low 21.0-32.0 [facility] Comment on above: Performed By: #### L 100.0500, L500.4050, L501.2300, L501.5000, L501.5200, L501.6710, L503.0106, L506.1001, L3300.0100, L3300.8200, L3300.9900, L3410.9992, L7400.3000, L3410.9996, L3410.9994 ####[facility] [address] [place], [place], [phone](015) Creatinine [Mass/Vol] 0.99 mg/dL Normal 0.70-1.20 [facility] Comment on above: Performed By: #### L 100.0500, L500.4050, L501.2300, L501.5000, L501.5200, L501.6710, L503.0106, L506.1001, L3300.0100, L3300.8200, L3300.9900, L3410.9992, L7400.3000, L3410.9996, L3410.9994 ####[facility] [address] [place], [place], [phone] GAP 17 High 5-15 [facility] Comment on above: Performed By: #### L 100.0500, L500.4050, L501.2300, L501.5000, L501.5200, L501.6710, L503.0106, L506.1001, L3300.0100, L3300.8200, L3300.9900, L3410.9992, L7400.3000, L3410.9996, L3410.9994 ####[facility] [address] [facility]. [place], [place], [phone] GFR/1.73 sq M.predicted among non-blacks MDRD (S/P/Bld) [Vol rate/Area] 73 mL/min/{1.73_m2} Normal >60 [facility] Comment on above: Result Comment: mL/m in/1.73m2 CKD-EPI Creatinine Equation (2020) Performed By: #### L 100.0500, L500.4050, L501.2300, L501.5000, L501.5200, L501.6710, L503.0106, L506.1001, L3300.0100, L3300.8200, L3300.9900, L3410.9992, L7400.3000, L3410.9996, L3410.9994 ####[facility] [address] [place], [place], [phone] Globulin (S) [Mass/Vol] 4.0 g/dL Normal 2.2-4.2 [facility] Comment on above: Performed By: #### L 100.0500, L500.4050, L501.2300, L501.5000, L501.5200, L501.6710, L503.0106, L506.1001, L3300.0100, L3300.8200, L3300.9900, L3410.9992, L7400.3000, L3410.9996, L3410.9994 ####[facility] [address] [place], [address] Glucose [Mass/Vol] 148 mg/dL High 70-99 [facility] Comment on above: Performed By: #### L 100.0500, L500.4050, L501.2300, L501.5000, L501.5200, L501.6710, L503.0106, L506.1001, L3300.0100, L3300.8200, L3300.9900, L3410.9992, L7400.3000, L3410.9996, L3410.9994 ####[facility] [address] [place], [address] Potassium [Moles/Vol] 2.6 mmol/L Invalid Interpretation Code 3.3-5.1 [facility] Comment on above: Result Comment: Crit ical Result(s) Called at: 1539 by:??CLAUDIA ALEXANDRE Results read back by same. Performed By: #### L 100.0500, L500.4050, L501.2300, L501.5000, L501.5200, L501.6710, L503.0106, L506.1001, L3300.0100, L3300.8200, L3300.9900, L3410.9992, L7400.3000, L3410.9996, L3410.9994 ####[facility] [address] [place], [address] Sodium [Moles/Vol] 137 mmol/L Normal 133-145 [facility] Comment on above: Performed By: #### L 100.0500, L500.4050, L501.2300, L501.5000, L501.5200, L501.6710, L503.0106, L506.1001, L3300.0100, L3300.8200, L3300.9900, L3410.9992, L7400.3000, L3410.9996, L3410.9994 ####[facility] [address] [place], [place], [phone] T PROT 7.4 g/dL Normal 5.9-8.4 [facility] Comment on above: Performed By: #### L 100.0500, L500.4050, L501.2300, L501.5000, L501.5200, L501.6710, L503.0106, L506.1001, L3300.0100, L3300.8200, L3300.9900, L3410.9992, L7400.3000, L3410.9996, L3410.9994 ####[facility] [address] [place], [place], [phone] Urea nitrogen [Mass/Vol] 17 mg/dL Normal 4-19 [facility] Comment on above: Performed By: #### L 100.0500, L500.4050, L501.2300, L501.5000, L501.5200, L501.6710, L503.0106, L506.1001, L3300.0100, L3300.8200, L3300.9900, L3410.9992, L7400.3000, L3410.9996, L3410.9994 ####[facility] [address] [place], [place], [phone] Magnesiumon 01-08-2025 Magnesium [Mass/Vol] 2.1 mg/dL Normal 1.5-2.2 [facility] Comment on above: Performed By: #### L 100.0500, L500.4050, L501.2300, L501.5000, L501.5200, L501.6710, L503.0106, L506.1001, L3300.0100, L3300.8200, L3300.9900, L3410.9992, L7400.3000, L3410.9996, L3410.9994 ####[facility] [address] [place], [place], [address] Phosphoruson 01-08-2025 Phosphate [Mass/Vol] 2.9 mg/dL Normal 2.7-4.5 [facility] Comment on above: Performed By: #### L 100.0500, L500.4050, L501.2300, L501.5000, L501.5200, L501.6710, L503.0106, L506.1001, L3300.0100, L3300.8200, L3300.9900, L3410.9992, L7400.3000, L3410.9996, L3410.9994 ####[facility] [address] [facility] [facility] [address] [place], [place], [address] Triglycerideson 01-08-2025 Triglyceride [Mass/Vol] 90 mg/dL Normal [facility] Comment on above: Result Comment: The drugs N-Acetylcysteine and Metamizole may falselydepress this assay.Normal range: <150 mg/dLBorderline High: 150-199 mg/dLHigh: 200-499 mg/dLVery High: >500 mg/dL Performed By: #### L 100.0500, L500.4050, L501.2300, L501.5000, L501.5200, L501.6710, L503.0106, L506.1001, L3300.0100, L3300.8200, L3300.9900, L3410.9992, L7400.3000, L3410.9996, L3410.9994 ####[facility] [address] [facility] [address] [place], [place], [phone] Vitamin B12on 01-08-2025 Cobalamin (Vitamin B12) [Mass/Vol] 381 pg/mL Normal 180-914 [facility] Comment on above: Performed By: #### L 100.0500, L500.4050, L501.2300, L501.5000, L501.5200, L501.6710, L503.0106, L506.1001, L3300.0100, L3300.8200, L3300.9900, L3410.9992, L7400.3000, L3410.9996, L3410.9994 ####[facility] [address] [place], [place], [id number] Vitamin D,25 Hydroxyon 01-08 Vitamin D 25-OH 8.9 ng/mL Low 30-100 [facility] Comment on above: Result Comment: Yamileth min D StatusDeficiency: <20 ng/mL (50nmol/L)Insufficiency: 20-30 ng/mL (50-75 nmol/L)Sufficiency: 30-100 ng/mL (75-250 nmol/L)Toxicity: >100 ng/mL (>250 nmol/L) Performed By: #### L 100.0500, L500.4050, L501.2300, L501.5000, L501.5200, L501.6710, L503.0106, L506.1001, L3300.0100, L3300.8200, L3300.9900, L3410.9992, L7400.3000, L3410.9996, L3410.9994 ####[facility] [address] [place], [place], [address] CNOVon 12-31-2024 CNOV Normal [facility] CNPNon 12-25-2024 CNPN Normal [facility] CNPTOUTREACHon 12-25-2024 CNPTOUTREACH [facility] CBC W/Diff, Automatedon - Absolute Lymph 2.63 X10 3/uL Normal 0.83-4.51 [facility] Comment on above: Performed By: #### L 100.0100, L500.4050, L501.2300, L501.5200 ####[facility] [address] [place], [address] Absolute Neut 7.8 X10 3/uL High 2.0-7.7 [facility] Comment on above: Performed By: #### L 100.0100, L500.4050, L501.2300, L501.5200 ####[facility] [address] [place], [address] Basophils/100 WBC (Bld) 0.4 % Normal 0-1 [facility] Comment on above: Performed By: #### L 100.0100, L500.4050, L501.2300, L501.5200 ####[facility] [address] [place], [address] Eosinophils/100 WBC (Bld) 2.6 % Normal 0-5 [facility] Comment on above: Performed By: #### L 100.0100, L500.4050, L501.2300, L501.5200 ####[facility] [address] [place], [address] Erythrocyte distribution width (RBC) [Ratio] 19.0 % High 11.6-14.6 [facility] Comment on above: Performed By: #### L 100.0100, L500.4050, L501.2300, L501.5200 ####[facility] [address] [place], [address] Hematocrit (Bld) [Volume fraction] 32.9 % Low 37-47 [facility] Comment on above: Performed By: #### L 100.0100, L500.4050, L501.2300, L501.5200 ####[facility] [address] [place], [address] Hemoglobin (Bld) [Mass/Vol] 10.4 g/dL Low 12.0-15.0 [facility] Comment on above: Performed By: #### L 100.0100, L500.4050, L501.2300, L501.5200 ####[facility] [address] [place], [address] IG% 0.600 Normal 0.0-0.9 [facility] Comment on above: Result Comment: IG% - Immature Granulocytes (promyelocytes, myelocytes andmetamyelocytes) > 1% indicates that a LEFT SHIFT is Present. Performed By: #### L 100.0100, L500.4050, L501.2300, L501.5200 ####[facility] [address] [place], [address] Lymphocytes/100 WBC (Bld) 22.8 % Normal 19-41 [facility] Comment on above: Performed By: #### L 100.0100, L500.4050, L501.2300, L501.5200 ####[facility] [address] [place], [address] MCH (RBC) [Entitic mass] 27.2 pg Normal 27.0-32.0 [facility] Comment on above: Performed By: #### L 100.0100, L500.4050, L501.2300, L501.5200 ####[facility] [address] [place], [address] MCHC (RBC) [Mass/Vol] 31.6 g/dL Low 32-36 [facility] Comment on above: Performed By: #### L 100.0100, L500.4050, L501.2300, L501.5200 ####[facility] [address] [place], [address] MCV (RBC) [Entitic vol] 85.9 fL Normal 81-99 [facility] Comment on above: Performed By: #### L 100.0100, L500.4050, L501.2300, L501.5200 ####[facility] [address] [place], [address] Monocytes/100 WBC (Bld) 5.7 % Normal 0-10 [facility] Comment on above: Performed By: #### L 100.0100, L500.4050, L501.2300, L501.5200 ####[facility] [address] [place], [address] Neutrophils/100 WBC (Bld) 67.9 % Normal 47-70 [facility] Comment on above: Performed By: #### L 100.0100, L500.4050, L501.2300, L501.5200 ####[facility] [address] [place], [address] Nucleated RBC (Bld) [#/Vol] 0 10*3/uL Normal 0-5 [facility] Comment on above: Performed By: #### L 100.0100, L500.4050, L501.2300, L501.5200 ####[facility] [address] [place], [address] Platelet mean volume (Bld) [Entitic vol] 9.2 fL Normal 6.2-12.0 [facility] Comment on above: Performed By: #### L 100.0100, L500.4050, L501.2300, L501.5200 ####[facility] [address] [place], [address] Platelets (Bld) [#/Vol] 500 10*3/uL High 150-450 [facility] Comment on above: Performed By: #### L 100.0100, L500.4050, L501.2300, L501.5200 ####[facility] [address] [place], [address] RBC (Bld) [#/Vol] 3.83 10*6/uL Low 4.2-5.4 [facility] Comment on above: Performed By: #### L 100.0100, L500.4050, L501.2300, L501.5200 ####[facility] [address] [place], [address] RDW SD 59.3 fl High 35.1-43.9 [facility] Comment on above: Performed By: #### L 100.0100, L500.4050, L501.2300, L501.5200 ####[facility] [address] [place], [address] WBC (Bld) [#/Vol] 11.5 10*3/uL High 4.4-11.0 [facility] Comment on above: Performed By: #### L 100.0100, L500.4050, L501.2300, L501.5200 ####[facility] [address] [place], [address] Comprehensive Metabolic Prof [facility] 12-24-2024 Albumin [Mass/Vol] 3.6 g/dL Normal 3.5-5.0 [facility] Comment on above: Performed By: #### L 100.0100, L500.4050, L501.2300, L501.5200 ####[facility] [address] [place], [address] Albumin/Globulin [Mass ratio] 0.9 {ratio} Normal 0.9-2.4 [facility] Comment on above: Performed By: #### L 100.0100, L500.4050, L501.2300, L501.5200 ####[facility] [address] [place], [address] ALK PHOS 192 U/L High 35-104 [facility] Comment on above: Performed By: #### L 100.0100, L500.4050, L501.2300, L501.5200 ####[facility] [address] [place], [address] ALT [Catalytic activity/Vol] 77 U/L High <=34 [facility] Comment on above: Performed By: #### L 100.0100, L500.4050, L501.2300, L501.5200 ####[facility] [address] [place], [address] AST [Catalytic activity/Vol] 42 U/L High <=31 [facility] Comment on above: Performed By: #### L 100.0100, L500.4050, L501.2300, L501.5200 ####[facility] [address] [place], [address] Bilirubin [Mass/Vol] 0.28 mg/dL Normal 0.00-1.30 [facility] Comment on above: Performed By: #### L 100.0100, L500.4050, L501.2300, L501.5200 ####[facility] [address] [place], [address] BUN/CRE 25.0 RATIO High 10-20 [facility] Comment on above: Performed By: #### L 100.0100, L500.4050, L501.2300, L501.5200 ####[facility] [address] [place], [address] Calcium [Mass/Vol] 9.1 mg/dL Normal 7.6-11.0 [facility] Comment on above: Performed By: #### L 100.0100, L500.4050, L501.2300, L501.5200 ####[facility] [address] [place], [address] Chloride [Moles/Vol] 105 mmol/L Normal 98-108 [facility] Comment on above: Performed By: #### L 100.0100, L500.4050, L501.2300, L501.5200 ####[facility] [address] [place], [address] CO2 [Moles/Vol] 20.1 mmol/L Low 21.0-32.0 [facility] Comment on above: Performed By: #### L 100.0100, L500.4050, L501.2300, L501.5200 ####[facility] [address] [place], [address] Creatinine [Mass/Vol] 0.94 mg/dL Normal 0.70-1.20 [facility] Comment on above: Performed By: #### L 100.0100, L500.4050, L501.2300, L501.5200 ####[facility] [address] [place], [address] GAP 14 Normal 5-15 [facility] Comment on above: Performed By: #### L 100.0100, L500.4050, L501.2300, L501.5200 ####[facility] [address] [place], [address] GFR/1.73 sq M.predicted among non-blacks MDRD (S/P/Bld) [Vol rate/Area] 79 mL/min/{1.73_m2} Normal >60 [facility] Comment on above: Result Comment: mL/m in/1.73m2 CKD-EPI Creatinine Equation (2020) Performed By: #### L 100.0100, L500.4050, L501.2300, L501.5200 ####[facility] [address] [place], [address] Globulin (S) [Mass/Vol] 3.8 g/dL Normal 2.2-4.2 [facility] Comment on above: Performed By: #### L 100.0100, L500.4050, L501.2300, L501.5200 ####[facility] [address] [place], [address] Glucose [Mass/Vol] 104 mg/dL High 70-99 [facility] Comment on above: Performed By: #### L 100.0100, L500.4050, L501.2300, L501.5200 ####[facility] [address] [place], [address] Potassium [Moles/Vol] 3.7 mmol/L Normal 3.3-5.1 [facility] Comment on above: Performed By: #### L 100.0100, L500.4050, L501.2300, L501.5200 ####[facility] [address] [place], [address] Sodium [Moles/Vol] 139 mmol/L Normal 133-145 [facility] Comment on above: Performed By: #### L 100.0100, L500.4050, L501.2300, L501.5200 ####[facility] [address] [place], [address] T PROT 7.3 g/dL Normal 5.9-8.4 [facility] Comment on above: Performed By: #### L 100.0100, L500.4050, L501.2300, L501.5200 ####[facility] [address] [place], [address] Urea nitrogen [Mass/Vol] 23 mg/dL High 4-19 [facility] Comment on above: Performed By: #### L 100.0100, L500.4050, L501.2300, L501.5200 ####[facility] [address] [place], [address] Magnesiumon 12-24-2024 Magnesium [Mass/Vol] 2.1 mg/dL Normal 1.5-2.2 [facility] Comment on above: Performed By: #### L 100.0100, L500.4050, L501.2300, L501.5200 ####[facility] [address] [place], [address] Phosphoruson 12-24-2024 Phosphate [Mass/Vol] 3.7 mg/dL Normal 2.7-4.5 [facility] Comment on above: Performed By: #### L 100.0100, L500.4050, L501.2300, L501.5200 ####[facility] [address] [place], [address] CASE MANAGEMon 12-21-2024 CASE MANAGEM Normal [facility] CBC W Auto Differential pane l (Bld)on 12-21-2024 Basophils (Bld) [#/Vol] 0.03 10*3/uL Normal <0.11 [facility] Comment on above: Order Comment: Speci men Type: BLOOD SPECIMENOrdering Facility: [facility] Address: [address] [place] [address] Performed By: #### 5 7021-8 ####[facility] LABCLIA [id number] [place] [address] [place] Basophils/100 WBC (Bld) 0.4 % Normal [facility] Comment on above: Order Comment: Speci men Type: BLOOD SPECIMENOrdering Facility: [facility] Address: [address] [place] [address] Performed By: #### 5 7021-8 ####[facility] LABCLIA [id number] [place] [id number] [place] Differential cell count method Nom (Bld) Auto Normal [facility] Comment on above: Order Comment: Speci men Type: BLOOD SPECIMENOrdering Facility: [facility] Address: [address] [place] [address] Performed By: #### 5 7021-8 ####[facility] LABCLIA [id number] [place] [id number] [place] Eosinophils (Bld) [#/Vol] 0.30 10*3/uL Normal <0.46 [facility] Comment on above: Order Comment: Speci men Type: BLOOD SPECIMENOrdering Facility: [facility] Address: [address] [place] [address] Performed By: #### 5 7021-8 ####[facility] LABCLIA [id number] [place] [id number] [place] Eosinophils/100 WBC (Bld) 4.0 % Normal [facility] Comment on above: Order Comment: Speci men Type: BLOOD SPECIMENOrdering Facility: [facility] Address: [address] [place] [address] Performed By: #### 5 7021-8 ####[facility] LABIA [id number] [place] [address] [place] Erythrocyte distribution width (RBC) [Ratio] 19.8 % High 11.5-15.0 [facility] Comment on above: Order Comment: Speci men Type: BLOOD SPECIMENOrdering Facility: [facility] Address: [address] [place] [address] Performed By: #### 5 7021-8 ####[facility] LABIA [id number] [place] [address] [place] Hematocrit (Bld) [Volume fraction] 30.5 % Low 36.0-46.0 [facility] Comment on above: Order Comment: Speci men Type: BLOOD SPECIMENOrdering Facility: [facility] Address: [address] [place] [address] Performed By: #### 5 7021-8 ####[facility] LABIA [id number] [place] [id number] [place] Hemoglobin (Bld) [Mass/Vol] 9.7 g/dL Low 11.5-15.5 [facility] Comment on above: Order Comment: Speci men Type: BLOOD SPECIMENOrdering Facility: [facility] Address: [address] [place] [address] Performed By: #### 5 7021-8 ####[facility] LABCLIA [id number] [place] [address] [place] Immature granulocytes (Bld) [#/Vol] 0.05 10*3/uL Normal <0.10 [facility] Comment on above: Order Comment: Speci men Type: BLOOD SPECIMENOrdering Facility: [facility] Address: [address] [place] [address] Performed By: #### 5 7021-8 ####[facility] LABCLIA [id number] [place] [address] [place] Immature granulocytes/100 WBC (Bld) 0.7 % Normal [facility] Comment on above: Order Comment: Speci men Type: BLOOD SPECIMENOrdering Facility: [facility] Address: [address] [place] [address] Performed By: #### 5 7021-8 ####[facility] LABCLIA [id number] [place] [address] [place] Lymphocytes (Bld) [#/Vol] 1.12 10*3/uL Normal 1.00-4.00 [facility] Comment on above: Order Comment: Speci men Type: BLOOD SPECIMENOrdering Facility: [facility] Address: [address] [place] [address] Performed By: #### 5 7021-8 ####[facility] LABCLIA [id number] [place] [address] [place] Lymphocytes/100 WBC (Bld) 14.9 % Normal [facility] Comment on above: Order Comment: Speci men Type: BLOOD SPECIMENOrdering Facility: [facility] Address: [address] [place] [address] Performed By: #### 5 7021-8 ####[facility] LABCLIA [id number] [place] [address] [place] MCH (RBC) [Entitic mass] 27.4 pg Normal 26.0-34.0 [facility] Comment on above: Order Comment: Speci men Type: BLOOD SPECIMENOrdering Facility: [facility] Address: [address] [place] [address] Performed By: #### 5 7021-8 ####[facility] LABIA [id number] [place] [address] [place] MCHC (RBC) [Mass/Vol] 31.8 g/dL Normal 30.5-36.0 [facility] Comment on above: Order Comment: Speci men Type: BLOOD SPECIMENOrdering Facility: [facility] Address: [address] [place] [address] Performed By: #### 5 7021-8 ####[facility] [id number] [address], [place] [address] [place] MCV (RBC) [Entitic vol] 86.2 fL Normal 80.0-100.0 [facility] Comment on above: Order Comment: Speci men Type: BLOOD SPECIMENOrdering Facility: [facility] Address: [address] [place] [address] Performed By: #### 5 7021-8 ####[facility] LABIA [id number] [place] [address] [place] Monocytes (Bld) [#/Vol] 0.58 10*3/uL Normal <0.87 [facility] Comment on above: Order Comment: Speci men Type: BLOOD SPECIMENOrdering Facility: [facility] Address: [address] [place] [address] Performed By: #### 5 7021-8 ####[facility] LABIA [id number] [place] [address] [place] Monocytes/100 WBC (Bld) 7.7 % Normal [facility] Comment on above: Order Comment: Speci men Type: BLOOD SPECIMENOrdering Facility: [facility] Address: [address] [place] [address] Performed By: #### 5 7021-8 ####[facility] LABCLIA [id number] [facility] [address], [place] [address] [place] Neutrophils (Bld) [#/Vol] 5.45 10*3/uL Normal 1.45-7.50 [facility] Comment on above: Order Comment: Speci men Type: BLOOD SPECIMENOrdering Facility: [facility] Address: [address] [place] [address] Performed By: #### 5 7021-8 ####[facility] LABCLIA [id number] [facility] [address], [place] [address] [place] Neutrophils/100 WBC (Bld) 72.3 % Normal [facility] Comment on above: Order Comment: Speci men Type: BLOOD SPECIMENOrdering Facility: [facility] Address: [address] [place] [address] Performed By: #### 5 7021-8 ####[facility] LABCLIA [id number] [facility] [address], [place] [address] [place] Nucleated RBC (Bld) [#/Vol] 10*3/uL Normal <0.01 [facility] Comment on above: Order Comment: Speci men Type: BLOOD SPECIMENOrdering Facility: [facility] Address: [address] [place] [address] Performed By: #### 5 7021-8 ####[facility] LABCLIA [id number] [facility] [place] [address] [place] Nucleated RBC/100 WBC (Bld) [Ratio] 0.0 /100 WBC Normal [facility] Comment on above: Order Comment: Speci men Type: BLOOD SPECIMENOrdering Facility: [facility] Address: [address] [place] [address] Performed By: #### 5 7021-8 ####[facility] LABCLIA [id number] [facility] [address], [facility] [place] Platelet mean volume (Bld) [Entitic vol] 9.7 fL Normal 9.0-12.7 [facility] Comment on above: Order Comment: Speci men Type: BLOOD SPECIMENOrdering Facility: [facility] Address: [address] [place] [address] Performed By: #### 5 7021-8 ####[facility] LABCLIA [id number] [place] [address] [place] Platelets (Bld) [#/Vol] 428 10*3/uL High 150-400 [facility] Comment on above: Order Comment: Speci men Type: BLOOD SPECIMENOrdering Facility: [facility] Address: [address] [place] [address] Performed By: #### 5 7021-8 ####[facility] LABIA [id number] [place] [address] [place] RBC (Bld) [#/Vol] 3.54 10*6/uL Low 3.90-5.20 [facility] Comment on above: Order Comment: Speci men Type: BLOOD SPECIMENOrdering Facility: [facility] Address: [address] [place] [address] Performed By: #### 5 7021-8 ####[facility] LABIA [id number] [place] [address] [place] WBC (Bld) [#/Vol] 7.53 10*3/uL Normal 3.70-11.00 [facility] Comment on above: Order Comment: Speci men Type: BLOOD SPECIMENOrdering Facility: [facility] Address: [address] [place] [address] Performed By: #### 5 7021-8 ####[facility] LABIA [id number] [place] [id number] [place] CNCNPATEDon 12-21-2024 CNCNPATED Normal [facility] CNPNon 12-21-2024 CNPN Normal [facility] CONSULT PROGon 12-21-2024 CONSULT PROG Normal [facility] CONSULT PROG Normal [facility] CRP SerPl-mCncon 12-21-2024 CRP [Mass/Vol] 2.9 mg/dL High <0.9 [facility] Comment on above: Order Comment: Speci men Type: BLOOD SPECIMENOrdering Facility: [facility] Address: [address] [place] [address] Performed By: #### 1 988-5 ####[facility] LABCLIA [id number] [address] [address] [place] [facility] Comprehensive metabolic 2000 panelon 12-21-2024 Albumin [Mass/Vol] 2.9 g/dL Low 3.9-4.9 [facility] Comment on above: Order Comment: Speci men Type: BLOOD SPECIMENOrdering Facility: [facility] Address: [address] [place] [address] Performed By: #### 2 4323-8, , 2776- ####[facility] LABCLIA [id number] [address] [address] [place] ALP [Catalytic activity/Vol] 123 U/L Normal 34-123 [facility] Comment on above: Order Comment: Speci men Type: BLOOD SPECIMENOrdering Facility: [facility] Address: [address] [place], [place] [address] Performed By: #### 2 4323-8, , 2776-06 ####[facility] LABCLIA [id number] [address] [address] [place] ALT [Catalytic activity/Vol] 34 U/L Normal 7-38 [facility] Comment on above: Order Comment: Speci men Type: BLOOD SPECIMENOrdering Facility: [facility] Address: [address] [place], [place] [address] Performed By: #### 2 4323-8, 71567-1, 7- ####[facility] LABCLIA [id number] [place] [id number] [place] Anion gap [Moles/Vol] 9 mmol/L Normal 8-15 [facility] Comment on above: Order Comment: Speci men Type: BLOOD SPECIMENOrdering Facility: [facility] Address: [address] [place] [address] Performed By: #### 2 4323-8, 53017-4, 2776-06 ####[facility] LABCLIA [id number] [place] [id number] [place] AST [Catalytic activity/Vol] 26 U/L Normal 13-35 [facility] Comment on above: Order Comment: Speci men Type: BLOOD SPECIMENOrdering Facility: [facility] Address: [address] [place] [address] Performed By: #### 2 4323-8, , 2776-06 ####[facility] LABCLIA [id number] [place] [address] [place] Bilirubin [Mass/Vol] 0.2 mg/dL Normal 0.2-1.3 [facility] Comment on above: Order Comment: Speci men Type: BLOOD SPECIMENOrdering Facility: [facility] Address: [address] [place] [address] Performed By: #### 2 4323-8, , 2776-06 ####[facility] LABCLIA [id number] [place] [id number] [place] Calcium [Mass/Vol] 9.1 mg/dL Normal 8.5-10.2 [facility] Comment on above: Order Comment: Speci men Type: BLOOD SPECIMENOrdering Facility: [facility] Address: [address] [place] [address] Performed By: #### 2 4323-8, 77516-1, 2776-06 ####[facility] LABCLIA [id number] [place] [id number] [place] Chloride [Moles/Vol] 105 mmol/L Normal 98-107 [facility] Comment on above: Order Comment: Speci men Type: BLOOD SPECIMENOrdering Facility: [facility] Address: [address] [place] [address] Performed By: #### 2 4323-8, , 2776-06 ####[facility] LABCLIA [id number] [place] [id number] [place] CO2 [Moles/Vol] 23 mmol/L Normal 22-30 [facility] Comment on above: Order Comment: Speci men Type: BLOOD SPECIMENOrdering Facility: [facility] Address: [address] [place] [address] Performed By: #### 2 4323-8, , 2776-06 ####[facility] LABIA [id number] [place] [address] [place] Creatinine [Mass/Vol] 0.70 mg/dL Normal 0.58-0.96 [facility] Comment on above: Order Comment: Speci men Type: BLOOD SPECIMENOrdering Facility: [facility] Address: [address] [place] [address] Performed By: #### 2 4323-8, , 2776-06 ####[facility] LABIA [id number] [place] [address] [place] Creatinine and Glomerular filtration rate.predicted panel (S/P/Bld) 112 mL/min/1.73m??? Normal >=60 [facility] Comment on above: Order Comment: Speci men Type: BLOOD SPECIMENOrdering Facility: [facility] Address: [address] [place] [address] Result Comment: Zeny mated Glomerular Filtration Rate [...] Performed By: #### 2 4323-8, , 2776-06 ####[facility] LABCLIA [id number] [facility] [address] [address] [place] Glucose [Mass/Vol] 125 mg/dL High 74-99 [facility] Comment on above: Order Comment: Speci men Type: BLOOD SPECIMENOrdering Facility: [facility] Address: [address] [place] [address] Result Comment: The [place] [employer] (ADA) provides guidance for cutoff [...] Standards of Medical Care in Diabetes 2016, [place] [employer]. Diabetes Care. 2016.39(Suppl 1). Performed By: #### 2 4323-8, , 2776-06 ####[facility] LABCLIA [id number] [address] [address] [place] Potassium [Moles/Vol] 4.1 mmol/L Normal 3.7-5.1 [facility] Comment on above: Order Comment: Speci men Type: BLOOD SPECIMENOrdering Facility: [facility] Address: [address] [place] [address] Performed By: #### 2 4323-8, , 2776-06 ####[facility] LABIA [id number] [facility] [address] [address] [place] Protein [Mass/Vol] 6.2 g/dL Low 6.3-8.0 [facility] Comment on above: Order Comment: Speci men Type: BLOOD SPECIMENOrdering Facility: [facility] Address: [address] [place] [address] Performed By: #### 2 4323-8, , 2776-06 ####[facility] LABCLIA [id number] [address] [address] [place] Sodium [Moles/Vol] 137 mmol/L Normal 136-144 [facility] Comment on above: Order Comment: Speci men Type: BLOOD SPECIMENOrdering Facility: [facility] Address: [address] [place], [place] [address] Performed By: #### 2 4323-8, , 2776-06 ####[facility] LABIA [id number] [address] [address] [place] Urea nitrogen [Mass/Vol] 15 mg/dL Normal 7-21 [facility] Comment on above: Order Comment: Speci men Type: BLOOD SPECIMENOrdering Facility: [facility] Address: [address] [place], [place] [address] Performed By: #### 2 4323-8, , 2776-06 ####[facility] LABIA [id number] [place] [id number] [place] Magnesium SerPl-mCncon 12-21 Magnesium [Mass/Vol] 2.1 mg/dL Normal 1.7-2.3 [facility] Comment on above: Order Comment: Speci men Type: BLOOD SPECIMENOrdering Facility: [facility] Address: [address] [place] [address] Performed By: #### 2 4323-8, , 2776-06 ####[facility] LABIA [id number] [address] [address] [place] PT EDon 12-21-2024 PT ED Normal [facility] PT ED Normal [facility] Phosphate SerPl-mCncon 12-21 Phosphate [Mass/Vol] 4.4 mg/dL Normal 2.7-4.8 [facility] Comment on above: Order Comment: Speci men Type: BLOOD SPECIMENOrdering Facility: [facility] Address: [address] [place] [address] Performed By: #### 2 4323-8, 04896-0, 2777-1 ####[facility] LABCLIA [id number] [place] [address] [place] CASE MANAGEMon 12-20-2024 CASE MANAGEM Normal [facility] CASE MANAGEM Normal [facility] CBC W Auto Differential pane l (Bld)on 12-20-2024 Basophils (Bld) [#/Vol] 0.04 10*3/uL Normal <0.11 [facility] Comment on above: Order Comment: Speci men Type: BLOOD SPECIMENOrdering Facility: [facility] Address: [address] [place] [address] Performed By: #### 5 7021-8 ####[facility] LABCLIA [id number] [place] [address] [place] Basophils/100 WBC (Bld) 0.5 % Normal [facility] Comment on above: Order Comment: Speci men Type: BLOOD SPECIMENOrdering Facility: [facility] Address: [address] [place] [address] Performed By: #### 5 7021-8 ####[facility] LABCLIA [id number] [place] [address] [place] Differential cell count method Nom (Bld) Auto Normal [facility] Comment on above: Order Comment: Speci men Type: BLOOD SPECIMENOrdering Facility: [facility] Address: [address] [place] [address] Performed By: #### 5 7021-8 ####[facility] LABCLIA [id number] [place] [address] [place] Eosinophils (Bld) [#/Vol] 0.25 10*3/uL Normal <0.46 [facility] Comment on above: Order Comment: Speci men Type: BLOOD SPECIMENOrdering Facility: [facility] Address: [address] [place] [address] Performed By: #### 5 7021-8 ####[facility] LABCLIA [id number] [address] [address] [place] Eosinophils/100 WBC (Bld) 3.4 % Normal [facility] Comment on above: Order Comment: Speci men Type: BLOOD SPECIMENOrdering Facility: [facility] Address: [address] [place] [address] Performed By: #### 5 7021-8 ####[facility] LABIA [id number] [address], [place] [address] [place] Erythrocyte distribution width (RBC) [Ratio] 20.0 % High 11.5-15.0 [facility] Comment on above: Order Comment: Speci men Type: BLOOD SPECIMENOrdering Facility: [facility] Address: [address] [place] [address] Performed By: #### 5 7021-8 ####[facility] LABIA [id number] [place] [address] [place] Hematocrit (Bld) [Volume fraction] 26.9 % Low 36.0-46.0 [facility] Comment on above: Order Comment: Speci men Type: BLOOD SPECIMENOrdering Facility: [facility] Address: [address] [place] [address] Performed By: #### 5 7021-8 ####[facility] LABIA [id number] [place] [id number] [place] Hemoglobin (Bld) [Mass/Vol] 8.6 g/dL Low 11.5-15.5 [facility] Comment on above: Order Comment: Speci men Type: BLOOD SPECIMENOrdering Facility: [facility] Address: [address] [place] [address] Performed By: #### 5 7021-8 ####[facility] LABCLIA [id number] [place] [address] [place] Immature granulocytes (Bld) [#/Vol] 0.05 10*3/uL Normal <0.10 [facility] Comment on above: Order Comment: Speci men Type: BLOOD SPECIMENOrdering Facility: [facility] Address: [address] [place] [address] Performed By: #### 5 7021-8 ####[facility] LABCLIA [id number] [place] [address] [place] Immature granulocytes/100 WBC (Bld) 0.7 % Normal [facility] Comment on above: Order Comment: Speci men Type: BLOOD SPECIMENOrdering Facility: [facility] Address: [address] [place] [address] Performed By: #### 5 7021-8 ####[facility] LABIA [id number] [place] [address] [place] Lymphocytes (Bld) [#/Vol] 1.26 10*3/uL Normal 1.00-4.00 [facility] Comment on above: Order Comment: Speci men Type: BLOOD SPECIMENOrdering Facility: [facility] Address: [address] [place] [address] Performed By: #### 5 7021-8 ####[facility] LABCLIA [id number] [address] [place] Lymphocytes/100 WBC (Bld) 17.0 % Normal [facility] Comment on above: Order Comment: Speci men Type: BLOOD SPECIMENOrdering Facility: [facility] Address: [address] [place] [address] Performed By: #### 5 7021-8 ####[facility] LABCLIA [id number] [place] [address] [place] MCH (RBC) [Entitic mass] 27.0 pg Normal 26.0-34.0 [facility] Comment on above: Order Comment: Speci men Type: BLOOD SPECIMENOrdering Facility: [facility] Address: [address] [place] [address] Performed By: #### 5 7021-8 ####[facility] LABIA [id number] [place] [address] [place] MCHC (RBC) [Mass/Vol] 32.0 g/dL Normal 30.5-36.0 [facility] Comment on above: Order Comment: Speci men Type: BLOOD SPECIMENOrdering Facility: [facility] Address: [address] [place] [address] Performed By: #### 5 7021-8 ####[facility] LABIA [id number] [place] [address] [place] MCV (RBC) [Entitic vol] 84.6 fL Normal 80.0-100.0 [facility] Comment on above: Order Comment: Speci men Type: BLOOD SPECIMENOrdering Facility: [facility] Address: [address] [place] [address] Performed By: #### 5 7021-8 ####[facility] LABIA [id number] [address], [place] [address] [place] Monocytes (Bld) [#/Vol] 0.50 10*3/uL Normal <0.87 [facility] Comment on above: Order Comment: Speci men Type: BLOOD SPECIMENOrdering Facility: [facility] Address: [address] [place] [address] Performed By: #### 5 7021-8 ####[facility] LABIA [id number] [address] [place] Monocytes/100 WBC (Bld) 6.7 % Normal [facility] Comment on above: Order Comment: Speci men Type: BLOOD SPECIMENOrdering Facility: [facility] Address: [address] [place] [address] Performed By: #### 5 7021-8 ####[facility] LABCLIA [id number] [place] [address] [place] Neutrophils (Bld) [#/Vol] 5.33 10*3/uL Normal 1.45-7.50 [facility] Comment on above: Order Comment: Speci men Type: BLOOD SPECIMENOrdering Facility: [facility] Address: [address] [place] [address] Performed By: #### 5 7021-8 ####[facility] LABCLIA [id number] [place] [address] [place] Neutrophils/100 WBC (Bld) 71.7 % Normal [facility] Comment on above: Order Comment: Speci men Type: BLOOD SPECIMENOrdering Facility: [facility] Address: [address] [place] [address] Performed By: #### 5 7021-8 ####[facility] LABCLIA [id number] [place] [address] [place] Nucleated RBC (Bld) [#/Vol] 10*3/uL Normal <0.01 [facility] Comment on above: Order Comment: Speci men Type: BLOOD SPECIMENOrdering Facility: [facility] Address: [address] [place] [address] Performed By: #### 5 7021-8 ####[facility] LABCLIA [id number] [place] [address] [place] Nucleated RBC/100 WBC (Bld) [Ratio] 0.0 /100 WBC Normal [facility] Comment on above: Order Comment: Speci men Type: BLOOD SPECIMENOrdering Facility: [facility] Address: [address] [place] [address] Performed By: #### 5 7021-8 ####[facility] LABCLIA [id number] [id number] [address] [place] Platelet mean volume (Bld) [Entitic vol] 9.2 fL Normal 9.0-12.7 [facility] Comment on above: Order Comment: Speci men Type: BLOOD SPECIMENOrdering Facility: [facility] Address: [address] [place] [address] Performed By: #### 5 7021-8 ####[facility] LABCLIA [id number] [place] [address] [place] Platelets (Bld) [#/Vol] 365 10*3/uL Normal 150-400 [facility] Comment on above: Order Comment: Speci men Type: BLOOD SPECIMENOrdering Facility: [facility] Address: [address] [place] [address] Performed By: #### 5 7021-8 ####[facility] LABCLIA [id number] [place] [address] [place] RBC (Bld) [#/Vol] 3.18 10*6/uL Low 3.90-5.20 [facility] Comment on above: Order Comment: Speci men Type: BLOOD SPECIMENOrdering Facility: [facility] Address: [address] [place] [address] Performed By: #### 5 7021-8 ####[facility] LABCLIA [id number] [place] [id number] [place] WBC (Bld) [#/Vol] 7.43 10*3/uL Normal 3.70-11.00 [facility] Comment on above: Order Comment: Speci men Type: BLOOD SPECIMENOrdering Facility: [facility] Address: [address] [place] [address] Performed By: #### 5 7021-8 ####[facility] LABCLIA [id number] [address] [address] [place] CONSULTon 12-20-2024 CONSULT Normal [facility] CONSULT Normal [facility] CONSULT PROGon 12-20-2024 CONSULT PROG Normal [facility] Comprehensive metabolic 2000 panelon 12-20-2024 Albumin [Mass/Vol] 2.7 g/dL Low 3.9-4.9 [facility] Comment on above: Order Comment: Speci men Type: BLOOD SPECIMENOrdering Facility: [facility] Address: [address] [place] [address] Performed By: #### 1 9123-9, 39204-7, 277-1 ####[facility] LABCLIA [id number] [place] [address] [place] ALP [Catalytic activity/Vol] 95 U/L Normal 34-123 [facility] Comment on above: Order Comment: Speci men Type: BLOOD SPECIMENOrdering Facility: [facility] Address: [address] [place] [address] Performed By: #### 1 9123-9, 55744-2, 277-1 ####[facility] LABCLIA [id number] [place] [address] [place] ALT [Catalytic activity/Vol] 23 U/L Normal 7-38 [facility] Comment on above: Order Comment: Speci men Type: BLOOD SPECIMENOrdering Facility: [facility] Address: [address] [place] [address] Performed By: #### 1 9123-9, 22008-2, 2776- ####[facility] LABCLIA [id number] [place] [address] [place] Anion gap [Moles/Vol] 11 mmol/L Normal 8-15 [facility] Comment on above: Order Comment: Speci men Type: BLOOD SPECIMENOrdering Facility: [facility] Address: [address] [place] [address] Performed By: #### 1 9123-9, 75140-3, 2777-1 ####[facility] LABCLIA [id number] [place] [id number] [place] AST [Catalytic activity/Vol] 20 U/L Normal 13-35 [facility] Comment on above: Order Comment: Speci men Type: BLOOD SPECIMENOrdering Facility: [facility] Address: [address] [place] [address] Performed By: #### 1 9123-9, 05708-3, 2776-06 ####[facility] LABCLIA [id number] [facility] [place] [address] [place] Bilirubin [Mass/Vol] 0.2 mg/dL Normal 0.2-1.3 [facility] Comment on above: Order Comment: Speci men Type: BLOOD SPECIMENOrdering Facility: [facility] Address: [address] [place] [address] Performed By: #### 1 9123-9, 66589-1, 2776-06 ####[facility] LABCLIA [id number] [place] [address] [place] Calcium [Mass/Vol] 8.8 mg/dL Normal 8.5-10.2 [facility] Comment on above: Order Comment: Speci men Type: BLOOD SPECIMENOrdering Facility: [facility] Address: [address] [place] [address] Performed By: #### 1 9123-9, 91089-8, 2776-06 ####[facility] LABCLIA [id number] [place] [address] [place] Chloride [Moles/Vol] 106 mmol/L Normal 98-107 [facility] Comment on above: Order Comment: Speci men Type: BLOOD SPECIMENOrdering Facility: [facility] Address: [address] [place], [place] [address] Performed By: #### 1 9123-9, 53303-6, 2776-06 ####[facility] LABCLIA [id number] [facility] [address] [place] [address] [place] CO2 [Moles/Vol] 22 mmol/L Normal 22-30 [facility] Comment on above: Order Comment: Speci men Type: BLOOD SPECIMENOrdering Facility: [facility] Address: [address] [place] [address] Performed By: #### 1 9123-9, , 2776-06 ####[facility] LABCLIA [id number] [address] [address] [place] Creatinine [Mass/Vol] 0.68 mg/dL Normal 0.58-0.96 [facility] Comment on above: Order Comment: Speci men Type: BLOOD SPECIMENOrdering Facility: [facility] Address: [address] [place] [address] Performed By: #### 1 9123-9, , 2776-06 ####[facility] LABIA [id number] [place] [address] [place] Creatinine and Glomerular filtration rate.predicted panel (S/P/Bld) 112 mL/min/1.73m??? Normal >=60 [facility] Comment on above: Order Comment: Speci men Type: BLOOD SPECIMENOrdering Facility: [facility] Address: [address] [place] [address] Result Comment: Zeny mated Glomerular Filtration Rate [...] actual GFR. Performed By: #### 1 9123-9, 56067-5, 2776-06 ####[facility] LABIA [id number] [address] [address] [place] Glucose [Mass/Vol] 127 mg/dL High 74-99 [facility] Comment on above: Order Comment: Speci men Type: BLOOD SPECIMENOrdering Facility: [facility] Address: [address] [place] [address] Result Comment: The [place] [employer] (ADA) provides guidance for cutoff [...] Standards of Medical Care in Diabetes 2016, [place] [employer]. Diabetes Care. 2016.39(Suppl 1). Performed By: #### 1 9123-9, 99768-2, 2777- ####[facility] [id number] [place] [address] [place] Potassium [Moles/Vol] 4.0 mmol/L Normal 3.7-5.1 [facility] Comment on above: Order Comment: Speci men Type: BLOOD SPECIMENOrdering Facility: [facility] Address: [address] [place] [address] Performed By: #### 1 9123-9, 01108-1, 277- ####[facility] [id number] [place] [address] [place] Protein [Mass/Vol] 5.9 g/dL Low 6.3-8.0 [facility] Comment on above: Order Comment: Speci men Type: BLOOD SPECIMENOrdering Facility: [facility] Address: [address] [place] [address] Performed By: #### 1 9123-9, 36756-0, 2777- ####[facility] [id number] [place] [id number] [place] Sodium [Moles/Vol] 139 mmol/L Normal 136-144 [facility] Comment on above: Order Comment: Speci men Type: BLOOD SPECIMENOrdering Facility: [facility] Address: [address] [place] [id number] Performed By: #### 1 9123-9, 84635-0, 2777-1 ####[facility] LABCLIA [id number] [place] [id number] [place] Urea nitrogen [Mass/Vol] 10 mg/dL Normal 7-21 [facility] Comment on above: Order Comment: Speci men Type: BLOOD SPECIMENOrdering Facility: [facility] Address: [address] [place] [address] Performed By: #### 1 9123-9, 34230-0, 2777- ####[facility] LABIA [id number] [place] [id number] [place] Magnesium SerPl-ncon 12-20 Magnesium [Mass/Vol] 1.9 mg/dL Normal 1.7-2.3 [facility] Comment on above: Order Comment: Speci men Type: BLOOD SPECIMENOrdering Facility: [facility] Address: [address] [place] [address] Performed By: #### 1 9123-9, 92670-2, 2777- ####[facility] LABIA [id number] [place] [id number] [place] NUTRITIONon 12-20-2024 NUTRITION Normal [facility] Phosphate SerPl-mCncon 12-20 Phosphate [Mass/Vol] 4.6 mg/dL Normal 2.7-4.8 [facility] Comment on above: Order Comment: Speci men Type: BLOOD SPECIMENOrdering Facility: [facility] Address: [address] [place], [place] [address] Performed By: #### 1 9123-9, 73679-7, 2777- ####[facility] LABIA [id number] [place] [id number] [place] CASE MANAGEMon 12-19-2024 CASE MANAGEM Normal [facility] CBC W Auto Differential pane l (Bld)on 12-19-2024 Basophils (Bld) [#/Vol] 10*3/uL Normal <0.11 [facility] Comment on above: Order Comment: Speci men Type: BLOOD SPECIMENOrdering Facility: [facility] Address: [address] [place] [address] Performed By: #### 5 7021-8 ####[facility] LABCLIA [id number] [facility] [address] [place] [address] [place] Basophils/100 WBC (Bld) 0.3 % Normal [facility] Comment on above: Order Comment: Speci men Type: BLOOD SPECIMENOrdering Facility: [facility] Address: [address] [place] [address] Performed By: #### 5 7021-8 ####[facility] LABCLIA [id number] [facility] [address], [facility] [place] Differential cell count method Nom (Bld) Auto Normal [facility] Comment on above: Order Comment: Speci men Type: BLOOD SPECIMENOrdering Facility: [facility] Address: [address] [place] [address] Performed By: #### 5 7021-8 ####[facility] LABCLIA [id number] [facility] [address], [facility] [place] Eosinophils (Bld) [#/Vol] 0.24 10*3/uL Normal <0.46 [facility] Comment on above: Order Comment: Speci men Type: BLOOD SPECIMENOrdering Facility: [facility] Address: [address] [place] [address] Performed By: #### 5 7021-8 ####[facility] LABCLIA [id number] [facility] [place] [id number] [place] Eosinophils/100 WBC (Bld) 3.0 % Normal [facility] Comment on above: Order Comment: Speci men Type: BLOOD SPECIMENOrdering Facility: [facility] Address: [address] [place] [address] Performed By: #### 5 7021-8 ####[facility] LABCLIA [id number] [place] [address] [place] Erythrocyte distribution width (RBC) [Ratio] 19.9 % High 11.5-15.0 [facility] Comment on above: Order Comment: Speci men Type: BLOOD SPECIMENOrdering Facility: [facility] Address: [address] [place] [address] Performed By: #### 5 7021-8 ####[facility] LABIA [id number] [place] [address] [place] Hematocrit (Bld) [Volume fraction] 26.4 % Low 36.0-46.0 [facility] Comment on above: Order Comment: Speci men Type: BLOOD SPECIMENOrdering Facility: [facility] Address: [address] [place] [address] Performed By: #### 5 7021-8 ####[facility] LABIA [id number] [place] [address] [place] Hemoglobin (Bld) [Mass/Vol] 8.5 g/dL Low 11.5-15.5 [facility] Comment on above: Order Comment: Speci men Type: BLOOD SPECIMENOrdering Facility: [facility] Address: [address] [place] [address] Performed By: #### 5 7021-8 ####[facility] LABIA [id number] [place] [address] [place] Immature granulocytes (Bld) [#/Vol] 0.05 10*3/uL Normal <0.10 [facility] Comment on above: Order Comment: Speci men Type: BLOOD SPECIMENOrdering Facility: [facility] Address: [address] [place] [address] Performed By: #### 5 7021-8 ####[facility] LABIA [id number] [place] [address] [place] Immature granulocytes/100 WBC (Bld) 0.6 % Normal [facility] Comment on above: Order Comment: Speci men Type: BLOOD SPECIMENOrdering Facility: [facility] Address: [address] [place] [address] Performed By: #### 5 7021-8 ####[facility] LABCLIA [id number] [place] [address] [place] Lymphocytes (Bld) [#/Vol] 1.35 10*3/uL Normal 1.00-4.00 [facility] Comment on above: Order Comment: Speci men Type: BLOOD SPECIMENOrdering Facility: [facility] Address: [address] [place] [address] Performed By: #### 5 7021-8 ####[facility] LABCLIA [id number] [address] [place] Lymphocytes/100 WBC (Bld) 17.1 % Normal [facility] Comment on above: Order Comment: Speci men Type: BLOOD SPECIMENOrdering Facility: [facility] Address: [address] [place] [address] Performed By: #### 5 7021-8 ####[facility] LABCLIA [id number] [place] [address] [place] MCH (RBC) [Entitic mass] 27.3 pg Normal 26.0-34.0 [facility] Comment on above: Order Comment: Speci men Type: BLOOD SPECIMENOrdering Facility: [facility] Address: [address] [place] [address] Performed By: #### 5 7021-8 ####[facility] LABCLIA [id number] [place] [address] [place] MCHC (RBC) [Mass/Vol] 32.2 g/dL Normal 30.5-36.0 [facility] Comment on above: Order Comment: Speci men Type: BLOOD SPECIMENOrdering Facility: [facility] Address: [address] [place] [address] Performed By: #### 5 7021-8 ####[facility] LABCLIA [id number] [address], [facility] [place] MCV (RBC) [Entitic vol] 84.9 fL Normal 80.0-100.0 [facility] Comment on above: Order Comment: Speci men Type: BLOOD SPECIMENOrdering Facility: [facility] Address: [address] [place] [address] Performed By: #### 5 7021-8 ####[facility] LABCLIA [id number] [address], [place] [address] [place] Monocytes (Bld) [#/Vol] 0.67 10*3/uL Normal <0.87 [facility] Comment on above: Order Comment: Speci men Type: BLOOD SPECIMENOrdering Facility: [facility] Address: [address] [place] [address] Performed By: #### 5 7021-8 ####[facility] LABIA [id number] [address], [facility] [place] Monocytes/100 WBC (Bld) 8.5 % Normal [facility] Comment on above: Order Comment: Speci men Type: BLOOD SPECIMENOrdering Facility: [facility] Address: [address] [place] [address] Performed By: #### 5 7021-8 ####[facility] LABCLIA [id number] [address], [facility] [place] Neutrophils (Bld) [#/Vol] 5.58 10*3/uL Normal 1.45-7.50 [facility] Comment on above: Order Comment: Speci men Type: BLOOD SPECIMENOrdering Facility: [facility] Address: [address] [place] [address] Performed By: #### 5 7021-8 ####[facility] LABCLIA [id number] [place] [address] [place] Neutrophils/100 WBC (Bld) 70.5 % Normal [facility] Comment on above: Order Comment: Speci men Type: BLOOD SPECIMENOrdering Facility: [facility] Address: [address] [place] [address] Performed By: #### 5 7021-8 ####[facility] LABCLIA [id number] [place] [address] [place] Nucleated RBC (Bld) [#/Vol] 10*3/uL Normal <0.01 [facility] Comment on above: Order Comment: Speci men Type: BLOOD SPECIMENOrdering Facility: [facility] Address: [address] [place] [address] Performed By: #### 5 7021-8 ####[facility] LABCLIA [id number] [place] [address] [place] Nucleated RBC/100 WBC (Bld) [Ratio] 0.0 /100 WBC Normal [facility] Comment on above: Order Comment: Speci men Type: BLOOD SPECIMENOrdering Facility: [facility] Address: [address] [place] [address] Performed By: #### 5 7021-8 ####[facility] LABCLIA [id number] [place] [address] [place] Platelet mean volume (Bld) [Entitic vol] 9.7 fL Normal 9.0-12.7 [facility] Comment on above: Order Comment: Speci men Type: BLOOD SPECIMENOrdering Facility: [facility] Address: [address] [place] [address] Performed By: #### 5 7021-8 ####[facility] LABCLIA [id number] [place] [address] [place] Platelets (Bld) [#/Vol] 362 10*3/uL Normal 150-400 [facility] Comment on above: Order Comment: Speci men Type: BLOOD SPECIMENOrdering Facility: [facility] Address: [address] [place] [address] Performed By: #### 5 7021-8 ####[facility] LABCLIA [id number] [place] [id number] [place] RBC (Bld) [#/Vol] 3.11 10*6/uL Low 3.90-5.20 [facility] Comment on above: Order Comment: Speci men Type: BLOOD SPECIMENOrdering Facility: [facility] Address: [address] [place] [address] Performed By: #### 5 7021-8 ####[facility] LABIA [id number] [place] [id number] [place] WBC (Bld) [#/Vol] 7.91 10*3/uL Normal 3.70-11.00 [facility] Comment on above: Order Comment: Speci men Type: BLOOD SPECIMENOrdering Facility: [facility] Address: [address] [place] [address] Performed By: #### 5 7021-8 ####[facility] [id number] [place] [id number] [place] CONSULT PROGon 12-19-2024 CONSULT PROG Normal [facility] CRP SerPl-mCncon 12-19-2024 CRP [Mass/Vol] 5.7 mg/dL High <0.9 [facility] Comment on above: Order Comment: Speci men Type: BLOOD SPECIMENOrdering Facility: [facility] Address: [address] [place] [address] Performed By: #### 2 4323-8, 1987-5, 14886-7, 2777-1 ####[facility] LABCLIA [id number] [place] [id number] [place] Comprehensive metabolic 2000 panelon 12-19-2024 Albumin [Mass/Vol] 2.8 g/dL Low 3.9-4.9 [facility] Comment on above: Order Comment: Speci men Type: BLOOD SPECIMENOrdering Facility: [facility] Address: [address] [place] [address] Performed By: #### 2 432-8, 1987-10, , 2776-06 ####[facility] LABCLIA [id number] [address] [address] [place] ALP [Catalytic activity/Vol] 85 U/L Normal 34-123 [facility] Comment on above: Order Comment: Speci men Type: BLOOD SPECIMENOrdering Facility: [facility] Address: [address] [place] [address] Performed By: #### 2 4323-8, 1987-10, , 2776-06 ####[facility]CLIA [id number] [address] [address] [place] ALT [Catalytic activity/Vol] 12 U/L Normal 7-38 [facility] Comment on above: Order Comment: Speci men Type: BLOOD SPECIMENOrdering Facility: [facility] Address: [address] [place] [address] Performed By: #### 2 4323-8, 1987-10, , 2776-06 ####[facility] [id number] [address] [address] [place] Anion gap [Moles/Vol] 11 mmol/L Normal 8-15 [facility] Comment on above: Order Comment: Speci men Type: BLOOD SPECIMENOrdering Facility: [facility] Address: [address] [place], [place] [id number] Performed By: #### 2 4323-8, 1987-10, , 2776-06 ####[facility]CL[facility] [id number] [address] [address] [place] AST [Catalytic activity/Vol] 12 U/L Low 13-35 [facility] Comment on above: Order Comment: Speci men Type: BLOOD SPECIMENOrdering Facility: [facility] Address: [address] [place] [address] Performed By: #### 2 4323-8, 1987-10, , 2776-06 ####[facility]CLIA [id number] [address] [address] [place] Bilirubin [Mass/Vol] 0.3 mg/dL Normal 0.2-1.3 [facility] Comment on above: Order Comment: Speci men Type: BLOOD SPECIMENOrdering Facility: [facility] Address: [address] [place], [place] [address] Performed By: #### 2 4323-8, 1987-10, , 2776-06 ####[facility]CLIA [id number] [address] [address] [place] Calcium [Mass/Vol] 8.6 mg/dL Normal 8.5-10.2 [facility] Comment on above: Order Comment: Speci men Type: BLOOD SPECIMENOrdering Facility: [facility] Address: [address] [place], [place] [address] Performed By: #### 2 4323-8, 1987-10, , 2776-06 ####[facility]CLIA [id number] [address] [address] [place] Chloride [Moles/Vol] 104 mmol/L Normal 98-107 [facility] Comment on above: Order Comment: Speci men Type: BLOOD SPECIMENOrdering Facility: [facility] Address: [address] [place] [address] Performed By: #### 2 4323-8, 1987-10, , 2776-06 ####[facility]CLIA [id number] [address] [address] [place] CO2 [Moles/Vol] 22 mmol/L Normal 22-30 [facility] Comment on above: Order Comment: Speci men Type: BLOOD SPECIMENOrdering Facility: [facility] Address: [address] [place] [id number] Performed By: #### 2 4323-8, 1987-10, , 2776-06 ####[facility] [id number] [address] [address] [place] Creatinine [Mass/Vol] 0.64 mg/dL Normal 0.58-0.96 [facility] Comment on above: Order Comment: Speci men Type: BLOOD SPECIMENOrdering Facility: [facility] Address: [address] [place] [address] Performed By: #### 2 4323-8, 1987-10, , 2776-06 ####[facility] [id number] [place] [address] [place] Creatinine and Glomerular filtration rate.predicted panel (S/P/Bld) 114 mL/min/1.73m??? Normal >=60 [facility] Comment on above: Order Comment: Speci men Type: BLOOD SPECIMENOrdering Facility: [facility] Address: [address] [place] [address] Result Comment: Zeny mated Glomerular Filtration Rate [...] reflect actual GFR. Performed By: #### 2 4328, 1987-10, , 2776-06 ####[facility] [id number] [address] [address] [place] Glucose [Mass/Vol] 103 mg/dL High 74-99 [facility] Comment on above: Order Comment: Speci men Type: BLOOD SPECIMENOrdering Facility: [facility] Address: [address] [place] [id number] Result Comment: The [place] [employer] (ADA) provides guidance for cutoff [...] Standards of Medical Care in Diabetes 2016, [place] [employer]. Diabetes Care. 2016.39(Suppl 1). Performed By: #### 2 4328, 1987-10, , 2776-06 ####[facility] [id number] [place] [address] [place] Potassium [Moles/Vol] 3.6 mmol/L Low 3.7-5.1 [facility] Comment on above: Order Comment: Speci men Type: BLOOD SPECIMENOrdering Facility: [facility] Address: [address] [place] [address] Performed By: #### 2 4328, 1987-10, , 2776-06 ####[facility] [id number] [place] [address] [place] Protein [Mass/Vol] 5.5 g/dL Low 6.3-8.0 [facility] Comment on above: Order Comment: Speci men Type: BLOOD SPECIMENOrdering Facility: [facility] Address: [address] [place] [address] Performed By: #### 2 4328, 1987-10, , 2776-06 ####[facility] [id number] [place] [id number] [place] Sodium [Moles/Vol] 137 mmol/L Normal 136-144 [facility] Comment on above: Order Comment: Speci men Type: BLOOD SPECIMENOrdering Facility: [facility] Address: [address] [place], [place] [phone] Performed By: #### 2 4323-01, 1987-10, , 2776-06 ####[facility] LABCLIA [id number] [place] [address] [place] Urea nitrogen [Mass/Vol] 11 mg/dL Normal 7-21 [facility] Comment on above: Order Comment: Speci men Type: BLOOD SPECIMENOrdering Facility: [facility] Address: [address] [place] [address] Performed By: #### 2 4323-01, 1987-10, , 2776-06 ####[facility] LABCLIA [id number] [place] [address] [place] Magnesium SerPl-mCncon 12-19 Magnesium [Mass/Vol] 1.9 mg/dL Normal 1.7-2.3 [facility] Comment on above: Order Comment: Speci men Type: BLOOD SPECIMENOrdering Facility: [facility] Address: [address] [place] [address] Performed By: #### 2 4323-01, 1987-10, , 2776-06 ####[facility] LABCLIA [id number] [place] [address] [place] NURSING PROGon 12-19-2024 NURSING PROG Normal [facility] Phosphate SerPl-mCncon 12-19 Phosphate [Mass/Vol] 4.2 mg/dL Normal 2.7-4.8 [facility] Comment on above: Order Comment: Speci men Type: BLOOD SPECIMENOrdering Facility: [facility] Address: [address] [place] [address] Performed By: #### 2 4322-8, 1987-10, , 2776-06 ####[facility] LABCLIA [id number] [place] [id number] [place] CBC W Auto Differential pane l (Bld)on 12-18-2024 Basophils (Bld) [#/Vol] 0.03 10*3/uL Normal <0.11 [facility] Comment on above: Order Comment: Speci men Type: BLOOD SPECIMENOrdering Facility: [facility] Address: [address] [place] [address] Performed By: #### 5 7021-8 ####[facility] LABCLIA [id number] [facility] [address] [place] Basophils/100 WBC (Bld) 0.4 % Normal [facility] Comment on above: Order Comment: Speci men Type: BLOOD SPECIMENOrdering Facility: [facility] Address: [address] [place] [address] Performed By: #### 5 7021-8 ####[facility] LABCLIA [id number] [place] [address] [place] Differential cell count method Nom (Bld) Auto Normal [facility] Comment on above: Order Comment: Speci men Type: BLOOD SPECIMENOrdering Facility: [facility] Address: [address] [place] [address] Performed By: #### 5 7021-8 ####[facility] LABCLIA [id number] [place] [address] [place] Eosinophils (Bld) [#/Vol] 0.31 10*3/uL Normal <0.46 [facility] Comment on above: Order Comment: Speci men Type: BLOOD SPECIMENOrdering Facility: [facility] Address: [address] [place] [address] Performed By: #### 5 7021-8 ####[facility]CLIA [id number] [place] [address] [place] Eosinophils/100 WBC (Bld) 4.4 % Normal [facility] Comment on above: Order Comment: Speci men Type: BLOOD SPECIMENOrdering Facility: [facility] Address: [address] [place] [address] Performed By: #### 5 7021-8 ####[facility] LABCLIA [id number] [place] [address] [place] Erythrocyte distribution width (RBC) [Ratio] 21.3 % High 11.5-15.0 [facility] Comment on above: Order Comment: Speci men Type: BLOOD SPECIMENOrdering Facility: [facility] Address: [address] [place] [address] Performed By: #### 5 7021-8 ####[facility] [id number] [place] [address] [place] Hematocrit (Bld) [Volume fraction] 21.9 % Low 36.0-46.0 [facility] Comment on above: Order Comment: Speci men Type: BLOOD SPECIMENOrdering Facility: [facility] Address: [address] [place] [address] Performed By: #### 5 7021-8 ####[facility] [id number] [place] [address] [place] Hemoglobin (Bld) [Mass/Vol] 6.8 g/dL Low 11.5-15.5 [facility] Comment on above: Order Comment: Speci men Type: BLOOD SPECIMENOrdering Facility: [facility] Address: [address] [place] [address] Performed By: #### 5 7021-8 ####[facility] LABCLIA [id number] [place] [address] [place] Immature granulocytes (Bld) [#/Vol] 0.05 10*3/uL Normal <0.10 [facility] Comment on above: Order Comment: Speci men Type: BLOOD SPECIMENOrdering Facility: [facility] Address: [address] [place] [address] Performed By: #### 5 7021-8 ####[facility] LABCLIA [id number] [place] [id number] [place] Immature granulocytes/100 WBC (Bld) 0.7 % Normal [facility] Comment on above: Order Comment: Speci men Type: BLOOD SPECIMENOrdering Facility: [facility] Address: [address] [place] [address] Performed By: #### 5 7021-8 ####[facility]CLIA [id number] [place] [address] [place] Lymphocytes (Bld) [#/Vol] 1.19 10*3/uL Normal 1.00-4.00 [facility] Comment on above: Order Comment: Speci men Type: BLOOD SPECIMENOrdering Facility: [facility] Address: [address] [place] [address] Performed By: #### 5 7021-8 ####[facility] LABCLIA [id number] [place] [address] [place] Lymphocytes/100 WBC (Bld) 17.0 % Normal [facility] Comment on above: Order Comment: Speci men Type: BLOOD SPECIMENOrdering Facility: [facility] Address: [address] [place] [address] Performed By: #### 5 7021-8 ####[facility] LABCLIA [id number] [place] [address] [place] MCH (RBC) [Entitic mass] 26.7 pg Normal 26.0-34.0 [facility] Comment on above: Order Comment: Speci men Type: BLOOD SPECIMENOrdering Facility: [facility] Address: [address] [place] [address] Performed By: #### 5 7021-8 ####[facility]CLIA [id number] [place] [address] [place] MCHC (RBC) [Mass/Vol] 31.1 g/dL Normal 30.5-36.0 [facility] Comment on above: Order Comment: Speci men Type: BLOOD SPECIMENOrdering Facility: [facility] Address: [address] [place] [address] Performed By: #### 5 7021-8 ####[facility]CLIA [id number] [place] [address] [place] MCV (RBC) [Entitic vol] 85.9 fL Normal 80.0-100.0 [facility] Comment on above: Order Comment: Speci men Type: BLOOD SPECIMENOrdering Facility: [facility] Address: [address] [place] [address] Performed By: #### 5 7021-8 ####[facility]CL[facility] [id number] [place] [address] [place] Monocytes (Bld) [#/Vol] 0.48 10*3/uL Normal <0.87 [facility] Comment on above: Order Comment: Speci men Type: BLOOD SPECIMENOrdering Facility: [facility] Address: [address] [place] [address] Performed By: #### 5 7021-8 ####[facility]CLIA [id number] [place] [address] [place] Monocytes/100 WBC (Bld) 6.8 % Normal [facility] Comment on above: Order Comment: Speci men Type: BLOOD SPECIMENOrdering Facility: [facility] Address: [address] [place] [address] Performed By: #### 5 7021-8 ####[facility]CLIA [id number] [place] [id number] [place] Neutrophils (Bld) [#/Vol] 4.96 10*3/uL Normal 1.45-7.50 [facility] Comment on above: Order Comment: Speci men Type: BLOOD SPECIMENOrdering Facility: [facility] Address: [address] [place] [address] Performed By: #### 5 7021-8 ####[facility]CL[facility] [id number] [place] [address] [place] Neutrophils/100 WBC (Bld) 70.7 % Normal [facility] Comment on above: Order Comment: Speci men Type: BLOOD SPECIMENOrdering Facility: [facility] Address: [address] [place] [address] Performed By: #### 5 7021-8 ####[facility]CLIA [id number] [place] [address] [place] Nucleated RBC (Bld) [#/Vol] 10*3/uL Normal <0.01 [facility] Comment on above: Order Comment: Speci men Type: BLOOD SPECIMENOrdering Facility: [facility] Address: [address] [place] [address] Performed By: #### 5 7021-8 ####[facility]CLIA [id number] [place] [address] [place] Nucleated RBC/100 WBC (Bld) [Ratio] 0.0 /100 WBC Normal [facility] Comment on above: Order Comment: Speci men Type: BLOOD SPECIMENOrdering Facility: [facility] Address: [address] [place] [address] Performed By: #### 5 7021-8 ####[facility] LABCLIA [id number] [place] [address] [place] Platelet mean volume (Bld) [Entitic vol] 9.7 fL Normal 9.0-12.7 [facility] Comment on above: Order Comment: Speci men Type: BLOOD SPECIMENOrdering Facility: [facility] Address: [address] [place] [address] Performed By: #### 5 7021-8 ####[facility]CLIA [id number] [place] [address] [place] Platelets (Bld) [#/Vol] 265 10*3/uL Normal 150-400 [facility] Comment on above: Order Comment: Speci men Type: BLOOD SPECIMENOrdering Facility: [facility] Address: [address] [place] [address] Performed By: #### 5 7021-8 ####[facility] [id number] [place] [address] [place] RBC (Bld) [#/Vol] 2.55 10*6/uL Low 3.90-5.20 [facility] Comment on above: Order Comment: Speci men Type: BLOOD SPECIMENOrdering Facility: [facility] Address: [address] [place] [address] Performed By: #### 5 7021-8 ####[facility] [id number] [place] [address] [place] WBC (Bld) [#/Vol] 7.02 10*3/uL Normal 3.70-11.00 [facility] Comment on above: Order Comment: Speci men Type: BLOOD SPECIMENOrdering Facility: [facility] Address: [address] [place] [address] Performed By: #### 5 7021-8 ####[facility] [id number] [place] [address] [place] CBC panel Auto (Bld)on 12-18 Erythrocyte distribution width (RBC) [Ratio] 20.3 % High 11.5-15.0 [facility] Comment on above: Order Comment: Speci men Type: BLOOD SPECIMENOrdering Facility: [facility] Address: [address] [place] [address] Performed By: #### 5 8410-2 ####[facility] [id number] [place] [address] [place] Hematocrit (Bld) [Volume fraction] 26.1 % Low 36.0-46.0 [facility] Comment on above: Order Comment: Speci men Type: BLOOD SPECIMENOrdering Facility: [facility] Address: [address] [place] [address] Performed By: #### 5 8410-2 ####[facility]CL[facility] [id number] [place] [address] [place] Hemoglobin (Bld) [Mass/Vol] 7.9 g/dL Low 11.5-15.5 [facility] Comment on above: Order Comment: Speci men Type: BLOOD SPECIMENOrdering Facility: [facility] Address: [address] [place] [address] Performed By: #### 5 8410-2 ####[facility] [id number] [place] [address] [place] MCH (RBC) [Entitic mass] 27.0 pg Normal 26.0-34.0 [facility] Comment on above: Order Comment: Speci men Type: BLOOD SPECIMENOrdering Facility: [facility] Address: [address] [place] [address] Performed By: #### 5 8410-2 ####[facility] [id number] [place] [address] [place] MCHC (RBC) [Mass/Vol] 30.3 g/dL Low 30.5-36.0 [facility] Comment on above: Order Comment: Speci men Type: BLOOD SPECIMENOrdering Facility: [facility] Address: [address] [place] [address] Performed By: #### 5 8410-2 ####[facility] [id number] [place] [address] [place] MCV (RBC) [Entitic vol] 89.1 fL Normal 80.0-100.0 [facility] Comment on above: Order Comment: Speci men Type: BLOOD SPECIMENOrdering Facility: [facility] Address: [address] [place] [address] Performed By: #### 5 8410-2 ####[facility] [id number] [place] [address] [place] Nucleated RBC (Bld) [#/Vol] 10*3/uL Normal <0.01 [facility] Comment on above: Order Comment: Speci men Type: BLOOD SPECIMENOrdering Facility: [facility] Address: [address] [place] [address] Performed By: #### 5 8410-2 ####[facility] [id number] [place] [address] [place] Platelet mean volume (Bld) [Entitic vol] 9.8 fL Normal 9.0-12.7 [facility] Comment on above: Order Comment: Speci men Type: BLOOD SPECIMENOrdering Facility: [facility] Address: [address] [place] [address] Performed By: #### 5 8410-2 ####[facility] [id number] [place] [address] [place] Platelets (Bld) [#/Vol] 287 10*3/uL Normal 150-400 [facility] Comment on above: Order Comment: Speci men Type: BLOOD SPECIMENOrdering Facility: [facility] Address: [address] [place] [address] Performed By: #### 5 8410-2 ####[facility] [id number] [place] [address] [place] RBC (Bld) [#/Vol] 2.93 10*6/uL Low 3.90-5.20 [facility] Comment on above: Order Comment: Speci men Type: BLOOD SPECIMENOrdering Facility: [facility] Address: [address] [place] [address] Performed By: #### 5 8410-2 ####[facility] [id number] [place] [address] [place] WBC (Bld) [#/Vol] 8.64 10*3/uL Normal 3.70-11.00 [facility] Comment on above: Order Comment: Speci men Type: BLOOD SPECIMENOrdering Facility: [facility] Address: [address] [place] [address] Performed By: #### 5 8410-2 ####[facility] [id number] [address] [address] [place] Erythrocyte distribution width (RBC) [Ratio] 21.2 % High 11.5-15.0 [facility] Comment on above: Order Comment: Speci men Type: BLOOD SPECIMENOrdering Facility: [facility] Address: [address] [place] [address] Performed By: #### 5 8410-2 ####[facility] [id number] [place] [address] [place] Hematocrit (Bld) [Volume fraction] 22.2 % Low 36.0-46.0 [facility] Comment on above: Order Comment: Speci men Type: BLOOD SPECIMENOrdering Facility: [facility] Address: [address] [place] [address] Performed By: #### 5 8410-2 ####[facility] [id number] [place] [address] [place] Hemoglobin (Bld) [Mass/Vol] 6.9 g/dL Low 11.5-15.5 [facility] Comment on above: Order Comment: Speci men Type: BLOOD SPECIMENOrdering Facility: [facility] Address: [address] [place] [address] Performed By: #### 5 8410-2 ####[facility] [id number] [place] [id number] [place] MCH (RBC) [Entitic mass] 27.0 pg Normal 26.0-34.0 [facility] Comment on above: Order Comment: Speci men Type: BLOOD SPECIMENOrdering Facility: [facility] Address: [address] [place] [address] Performed By: #### 5 8410-2 ####[facility] [id number] [address], [place] [address] [place] MCHC (RBC) [Mass/Vol] 31.1 g/dL Normal 30.5-36.0 [facility] Comment on above: Order Comment: Speci men Type: BLOOD SPECIMENOrdering Facility: [facility] Address: [address] [place] [address] Performed By: #### 5 8410-2 ####[facility] [id number] [address], [place] [address] [place] MCV (RBC) [Entitic vol] 86.7 fL Normal 80.0-100.0 [facility] Comment on above: Order Comment: Speci men Type: BLOOD SPECIMENOrdering Facility: [facility] Address: [address] [place] [address] Performed By: #### 5 8410-2 ####[facility] [id number] [place] [address] [place] Nucleated RBC (Bld) [#/Vol] 10*3/uL Normal <0.01 [facility] Comment on above: Order Comment: Speci men Type: BLOOD SPECIMENOrdering Facility: [facility] Address: [address] [place] [address] Performed By: #### 5 8410-2 ####[facility] [id number] [place] [address] [place] Platelet mean volume (Bld) [Entitic vol] 9.5 fL Normal 9.0-12.7 [facility] Comment on above: Order Comment: Speci men Type: BLOOD SPECIMENOrdering Facility: [facility] Address: [address] [place] [address] Performed By: #### 5 8410-2 ####[facility] [id number] [place] [id number] [place] Platelets (Bld) [#/Vol] 284 10*3/uL Normal 150-400 [facility] Comment on above: Order Comment: Speci men Type: BLOOD SPECIMENOrdering Facility: [facility] Address: [address] [place] [address] Performed By: #### 5 8410-2 ####[facility]CL[facility] [id number] [place] [id number] [place] RBC (Bld) [#/Vol] 2.56 10*6/uL Low 3.90-5.20 [facility] Comment on above: Order Comment: Speci men Type: BLOOD SPECIMENOrdering Facility: [facility] Address: [address] [place] [address] Performed By: #### 5 8410-2 ####[facility] LABCLIA [id number] [place] [address] [place] WBC (Bld) [#/Vol] 7.45 10*3/uL Normal 3.70-11.00 [facility] Comment on above: Order Comment: Speci men Type: BLOOD SPECIMENOrdering Facility: [facility] Address: [address] [place] [address] Performed By: #### 5 8410-2 ####[facility] LABIA [id number] [place] [id number] [place] Comprehensive metabolic 2000 panelon 12-18-2024 Albumin [Mass/Vol] 2.3 g/dL Low 3.9-4.9 [facility] Comment on above: Order Comment: Speci men Type: BLOOD SPECIMENOrdering Facility: [facility] Address: [address] [place] [address] Performed By: #### 2 4323-8, 86523-2, 2777-1, 2571-8 ####[facility] LABCLIA [id number] [place] [address] [place] ALP [Catalytic activity/Vol] 71 U/L Normal 34-123 [facility] Comment on above: Order Comment: Speci men Type: BLOOD SPECIMENOrdering Facility: [facility] Address: [address] [place] [address] Performed By: #### 2 4323-8, 87493-6, 2776-06, 8 ####[facility] LABCLIA [id number] [place] [address] [place] ALT [Catalytic activity/Vol] 9 U/L Normal 7-38 [facility] Comment on above: Order Comment: Speci men Type: BLOOD SPECIMENOrdering Facility: [facility] Address: [address] [place] [address] Performed By: #### 2 4323-8, 25487-6, 2776-06, 8 ####[facility] LABCLIA [id number] [place] [address] [place] Anion gap [Moles/Vol] 10 mmol/L Normal 8-15 [facility] Comment on above: Order Comment: Speci men Type: BLOOD SPECIMENOrdering Facility: [facility] Address: [address] [place] [address] Performed By: #### 2 4323-8, 83823-3, 2776-06, 8 ####[facility] LABCLIA [id number] [address] [place] AST [Catalytic activity/Vol] 9 U/L Low 13-35 [facility] Comment on above: Order Comment: Speci men Type: BLOOD SPECIMENOrdering Facility: [facility] Address: [address] [place] [address] Performed By: #### 2 4323-8, 35404-3, 2776-06, 8 ####[facility] LABCLIA [id number] [address] [address] [place] Bilirubin [Mass/Vol] 0.2 mg/dL Normal 0.2-1.3 [facility] Comment on above: Order Comment: Speci men Type: BLOOD SPECIMENOrdering Facility: [facility] Address: [address] [place] [address] Performed By: #### 2 4323-8, 31175-4, 2776-06, 8 ####[facility] LABCLIA [id number] [facility] [address] [place] [address] [place] Calcium [Mass/Vol] 8.0 mg/dL Low 8.5-10.2 [facility] Comment on above: Order Comment: Speci men Type: BLOOD SPECIMENOrdering Facility: [facility] Address: [address] [place] [address] Performed By: #### 2 4323-8, , 2776-06, 2571-01 ####[facility] LABCLIA [id number] [place] [id number] [place] Chloride [Moles/Vol] 106 mmol/L Normal 98-107 [facility] Comment on above: Order Comment: Speci men Type: BLOOD SPECIMENOrdering Facility: [facility] Address: [address] [place] [address] Performed By: #### 2 4323-8, , 2776-06, 2571-01 ####[facility] LABCLIA [id number] [place] [id number] [place] CO2 [Moles/Vol] 22 mmol/L Normal 22-30 [facility] Comment on above: Order Comment: Speci men Type: BLOOD SPECIMENOrdering Facility: [facility] Address: [address] [place] [address] Performed By: #### 2 4323-8, 15165-9, 2776-06, 8 ####[facility] LABCLIA [id number] [facility] [address] [place] [address] [place] Creatinine [Mass/Vol] 0.53 mg/dL Low 0.58-0.96 [facility] Comment on above: Order Comment: Dora finch Type: BLOOD SPECIMENOrdering Facility: [facility] Address: [address] [place] [id number] Performed By: #### 2 4323-8, 29516-1, 2776-06, 2571-01 ####[facility] LABCLIA [id number] [place] [address] [place] Creatinine and Glomerular filtration rate.predicted panel (S/P/Bld) 119 mL/min/1.73m??? Normal >=60 [facility] Comment on above: Order Comment: Dora finch Type: BLOOD SPECIMENOrdering Facility: [facility] Address: [address] [place] [address] Result Comment: Zeny mated Glomerular Filtration Rate [...] actual GFR. Performed By: #### 2 4323-8, 29470-4, 2776-06, 2571-01 ####[facility] LABCLIA [id number] [address] [address] [place] Glucose [Mass/Vol] 115 mg/dL High 74-99 [facility] Comment on above: Order Comment: Dora finch Type: BLOOD SPECIMENOrdering Facility: [facility] Address: [address] [place] [address] Result Comment: The [place] Diabetes Association (ADA) provides guidance for cutoff [...] Standards of Medical Care in Diabetes 2016, [place] [employer]. Diabetes Care. 2016.39(Suppl 1). Performed By: #### 2 4323-8, 89290-6, 2776-06, 8 ####[facility] LABCLIA [id number] [address] [address] [place] Potassium [Moles/Vol] 3.3 mmol/L Low 3.7-5.1 [facility] Comment on above: Order Comment: Speci men Type: BLOOD SPECIMENOrdering Facility: [facility] Address: [address] [place] [address] Performed By: #### 2 432-8, , 2776-06, 2571-01 ####[facility] LABCLIA [id number] [place] [id number] [place] Protein [Mass/Vol] 5.1 g/dL Low 6.3-8.0 [facility] Comment on above: Order Comment: Florii stef Type: BLOOD SPECIMENOrdering Facility: [facility] Address: [address] [place] [address] Performed By: #### 2 4323-8, , 2776-06, 2571-01 ####[facility] LABCLIA [id number] [address] [address] [place] Sodium [Moles/Vol] 138 mmol/L Normal 136-144 [facility] Comment on above: Order Comment: Speci men Type: BLOOD SPECIMENOrdering Facility: [facility] Address: [address] [place] [address] Performed By: #### 2 4323-8, , 2776-06, 2571-01 ####[facility] LABCLIA [id number] [address] [address] [place] Urea nitrogen [Mass/Vol] 8 mg/dL Normal 7-21 [facility] Comment on above: Order Comment: Speci men Type: BLOOD SPECIMENOrdering Facility: [facility] Address: [address] [place] [address] Performed By: #### 2 4323-8, 90557-7, 7-1, 2571-8 ####[facility] LABCLIA [id number] [place] [address] [place] Magnesium SerPl-mCncon 12-18 Magnesium [Mass/Vol] 1.8 mg/dL Normal 1.7-2.3 [facility] Comment on above: Order Comment: Speci men Type: BLOOD SPECIMENOrdering Facility: [facility] Address: [address] [place] [address] Performed By: #### 2 4323-8, 34850-3, 2776-1, 2571-8 ####[facility] LABCLIA [id number] [place] [address] [place] Phosphate SerPl-mCncon 12-18 Phosphate [Mass/Vol] 3.8 mg/dL Normal 2.7-4.8 [facility] Comment on above: Order Comment: Speci men Type: BLOOD SPECIMENOrdering Facility: [facility] Address: [address] [place] [address] Performed By: #### 2 4323-8, 28716-6, 277-1, 257-8 ####[facility] LABCLIA [id number] [place] [address] [place] TYPE + SCREENon 12-18-2024 ABO O Normal [facility] Comment on above: Order Comment: Speci men Type: BLOOD SPECIMENOrdering Facility: [facility] Address: [address] [place] [address] Performed By: #### T SCR ####[facility] BLOOD BANKCLIA [id number] [place] [address] [place] Rh Nom (Bld) Positive Normal [facility] Comment on above: Order Comment: Speci men Type: BLOOD SPECIMENOrdering Facility: [facility] Address: [address] [place] [address] Performed By: #### T SCR ####[facility] BLOOD BANKCLIA [id number] [place] [address] [place] [facility] TYPE AND SCREEN EXPIRATION 12/21/2024 23:59 Normal [facility] Comment on above: Order Comment: Speci men Type: BLOOD SPECIMENOrdering Facility: [facility] Address: [address] [place] [address] Performed By: #### T SCR ####[facility] BLOOD BANKCLIA [id number] [address] [place] Trigl SerPl-mCncon Triglyceride [Mass/Vol] 81 mg/dL Normal <150 [facility] Comment on above: Order Comment: Speci men Type: BLOOD SPECIMENOrdering Facility: [facility] Address: [address] [place] [address] Result Comment: <150 mg/dL, Normal 150-199 mg/dL, Borderline high 200-499 mg/dL, High>499 mg/dL, Very highReference:1. National Cholesterol Education Program ATP III Guideline At-A-Glance Quick Desk Reference: National Heart, Lung, and Blood [place]. National Institutes of Health. 2001: NIH Publication No. 01-3305. Performed By: #### 2 4323-8, 24420-6, 2777-, 8 ####[facility] LABCLIA [id number] [place] [id number] [place] Triglyceride [Mass/Vol]on FASTING TIME 12 hrs Normal [facility] Comment on above: Order Comment: Speci men Type: BLOOD SPECIMENOrdering Facility: [facility] Address: [address] [place] [address] Performed By: #### 2 4323-8, 62354-5, 2777-, 2570-8 ####[facility] LABCLIA [id number] [address] [address] [place] Basic metabolic 2000 panelon 12-17-2024 Anion gap [Moles/Vol] 9 mmol/L Normal 8-15 [facility] Comment on above: Order Comment: Speci men Type: BLOOD SPECIMENOrdering Facility: [facility] Address: [address] [place] [address] Performed By: #### 2 4321-2 ####[facility] LABCLIA [id number] [place] [id number] [place] Calcium [Mass/Vol] 8.0 mg/dL Low 8.5-10.2 [facility] Comment on above: Order Comment: Speci men Type: BLOOD SPECIMENOrdering Facility: [facility] Address: [address] [place] [address] Performed By: #### 2 4321-2 ####[facility] LABIA [id number] [place] [id number] [place] Chloride [Moles/Vol] 104 mmol/L Normal 98-107 [facility] Comment on above: Order Comment: Speci men Type: BLOOD SPECIMENOrdering Facility: [facility] Address: [address] [place] [address] Performed By: #### 2 4321-2 ####[facility] LABCLIA [id number] [place] [id number] [place] CO2 [Moles/Vol] 23 mmol/L Normal 22-30 [facility] Comment on above: Order Comment: Speci men Type: BLOOD SPECIMENOrdering Facility: [facility] Address: [address] [place] [address] Performed By: #### 2 4321-2 ####[facility] LABCLIA [id number] [place] [id number] [place] Creatinine [Mass/Vol] 0.54 mg/dL Low 0.58-0.96 [facility] Comment on above: Order Comment: Dora finch Type: BLOOD SPECIMENOrdering Facility: [facility] Address: [address] [place] [address] Performed By: #### 2 4321-2 ####[facility] LABCLIA [id number] [place] [address] [place] Creatinine and Glomerular filtration rate.predicted panel (S/P/Bld) 119 mL/min/1.73m??? Normal >=60 [facility] Comment on above: Order Comment: Dora finch Type: BLOOD SPECIMENOrdering Facility: [facility] Address: [address] [place] [address] Result Comment: Zeny mated Glomerular Filtration Rate [...] actual GFR. Performed By: #### 2 4321-2 ####[facility] LABCLIA [id number] [place] [address] [place] Glucose [Mass/Vol] 152 mg/dL High 74-99 [facility] Comment on above: Order Comment: Dora finch Type: BLOOD SPECIMENOrdering Facility: [facility] Address: [address] [place] [address] Result Comment: The [place] Diabetes [employer] (ADA) provides guidance for cutoff [...] Standards of Medical Care in Diabetes 2016, [place] [employer]. Diabetes Care. 2016.39(Suppl 1). Performed By: #### 2 4321-2 ####[facility] LABIA [id number] [place] [id number] [place] Potassium [Moles/Vol] 3.7 mmol/L Normal 3.7-5.1 [facility] Comment on above: Order Comment: Speci men Type: BLOOD SPECIMENOrdering Facility: [facility] Address: [address] [place] [address] Performed By: #### 2 4321-2 ####[facility] LABIA [id number] [place] [id number] [place] Sodium [Moles/Vol] 136 mmol/L Normal 136-144 [facility] Comment on above: Order Comment: Speci men Type: BLOOD SPECIMENOrdering Facility: [facility] Address: [address] [place] [address] Performed By: #### 2 4321-2 ####[facility] LABIA [id number] [place] [address] [place] Urea nitrogen [Mass/Vol] 12 mg/dL Normal 7-21 [facility] Comment on above: Order Comment: Speci men Type: BLOOD SPECIMENOrdering Facility: [facility] Address: [address] [place] [address] Performed By: #### 2 4321-2 ####[facility] LABIA [id number] [place] [id number] [place] CASE MANAGEMon 12-17-2024 CASE MANAGEM Normal [facility] CBC W Auto Differential pane l (Bld)on 12-17-2024 Basophils (Bld) [#/Vol] 10*3/uL Normal <0.11 [facility] Comment on above: Order Comment: Speci men Type: BLOOD SPECIMENOrdering Facility: [facility] Address: [address] [place] [address] Performed By: #### 5 7021-8 ####[facility] LABCLIA [id number] [facility] [address], [place] [address] [place] Basophils/100 WBC (Bld) 0.2 % Normal [facility] Comment on above: Order Comment: Speci men Type: BLOOD SPECIMENOrdering Facility: [facility] Address: [address] [place] [address] Performed By: #### 5 7021-8 ####[facility] LABCLIA [id number] [facility] [address], [place] [address] [place] Differential cell count method Nom (Bld) Auto Normal [facility] Comment on above: Order Comment: Speci men Type: BLOOD SPECIMENOrdering Facility: [facility] Address: [address] [place] [address] Performed By: #### 5 7021-8 ####[facility] LABCLIA [id number] [address], [place] [address] [place] Eosinophils (Bld) [#/Vol] 0.29 10*3/uL Normal <0.46 [facility] Comment on above: Order Comment: Speci men Type: BLOOD SPECIMENOrdering Facility: [facility] Address: [address] [place] [address] Performed By: #### 5 7021-8 ####[facility] LABCLIA [id number] [address], [place] [address] [place] Eosinophils/100 WBC (Bld) 3.3 % Normal [facility] Comment on above: Order Comment: Speci men Type: BLOOD SPECIMENOrdering Facility: [facility] Address: [address] [place] [address] Performed By: #### 5 7021-8 ####[facility] LABCLIA [id number] [facility] [address], [place] [address] [place] Erythrocyte distribution width (RBC) [Ratio] 21.2 % High 11.5-15.0 [facility] Comment on above: Order Comment: Speci men Type: BLOOD SPECIMENOrdering Facility: [facility] Address: [address] [place] [address] Performed By: #### 5 7021-8 ####[facility] LABIA [id number] [place] [address] [place] Hematocrit (Bld) [Volume fraction] 24.6 % Low 36.0-46.0 [facility] Comment on above: Order Comment: Speci men Type: BLOOD SPECIMENOrdering Facility: [facility] Address: [address] [place] [address] Performed By: #### 5 7021-8 ####[facility] LABIA [id number] [place] [address] [place] Hemoglobin (Bld) [Mass/Vol] 7.6 g/dL Low 11.5-15.5 [facility] Comment on above: Order Comment: Speci men Type: BLOOD SPECIMENOrdering Facility: [facility] Address: [address] [place] [address] Performed By: #### 5 7021-8 ####[facility] LABIA [id number] [address] [place] Immature granulocytes (Bld) [#/Vol] 0.04 10*3/uL Normal <0.10 [facility] Comment on above: Order Comment: Speci men Type: BLOOD SPECIMENOrdering Facility: [facility] Address: [address] [place] [address] Performed By: #### 5 7021-8 ####[facility] LABIA [id number] [place] [address] [place] Immature granulocytes/100 WBC (Bld) 0.5 % Normal [facility] Comment on above: Order Comment: Speci men Type: BLOOD SPECIMENOrdering Facility: [facility] Address: [address] [place] [address] Performed By: #### 5 7021-8 ####[facility] LABCLIA [id number] [place] [address] [place] Lymphocytes (Bld) [#/Vol] 1.04 10*3/uL Normal 1.00-4.00 [facility] Comment on above: Order Comment: Speci men Type: BLOOD SPECIMENOrdering Facility: [facility] Address: [address] [place] [address] Performed By: #### 5 7021-8 ####[facility] LABCLIA [id number] [place] [address] [place] Lymphocytes/100 WBC (Bld) 11.7 % Normal [facility] Comment on above: Order Comment: Speci men Type: BLOOD SPECIMENOrdering Facility: [facility] Address: [address] [place] [address] Performed By: #### 5 7021-8 ####[facility] LABIA [id number] [place] [address] [place] MCH (RBC) [Entitic mass] 26.5 pg Normal 26.0-34.0 [facility] Comment on above: Order Comment: Speci men Type: BLOOD SPECIMENOrdering Facility: [facility] Address: [address] [place] [address] Performed By: #### 5 7021-8 ####[facility] LABIA [id number] [place] [address] [place] MCHC (RBC) [Mass/Vol] 30.9 g/dL Normal 30.5-36.0 [facility] Comment on above: Order Comment: Speci men Type: BLOOD SPECIMENOrdering Facility: [facility] Address: [address] [place] [address] Performed By: #### 5 7021-8 ####[facility] LABIA [id number] [place] [address] [place] MCV (RBC) [Entitic vol] 85.7 fL Normal 80.0-100.0 [facility] Comment on above: Order Comment: Speci men Type: BLOOD SPECIMENOrdering Facility: [facility] Address: [address] [place] [address] Performed By: #### 5 7021-8 ####[facility] LABCLIA [id number] [facility] [id number] [address] [place] Monocytes (Bld) [#/Vol] 0.61 10*3/uL Normal <0.87 [facility] Comment on above: Order Comment: Speci men Type: BLOOD SPECIMENOrdering Facility: [facility] Address: [address] [place] [address] Performed By: #### 5 7021-8 ####[facility] LABCLIA [id number] [address], [facility] [place] Monocytes/100 WBC (Bld) 6.9 % Normal [facility] Comment on above: Order Comment: Speci men Type: BLOOD SPECIMENOrdering Facility: [facility] Address: [address] [place] [address] Performed By: #### 5 7021-8 ####[facility] LABCLIA [id number] [address] [place] [address] [place] Neutrophils (Bld) [#/Vol] 6.88 10*3/uL Normal 1.45-7.50 [facility] Comment on above: Order Comment: Speci men Type: BLOOD SPECIMENOrdering Facility: [facility] Address: [address] [place] [address] Performed By: #### 5 7021-8 ####[facility] LABCLIA [id number] [address] [place] [address] [place] Neutrophils/100 WBC (Bld) 77.4 % Normal [facility] Comment on above: Order Comment: Speci men Type: BLOOD SPECIMENOrdering Facility: [facility] Address: [address] [place] [address] Performed By: #### 5 7021-8 ####[facility] LABCLIA [id number] [address] [place] [address] [place] Nucleated RBC (Bld) [#/Vol] 10*3/uL Normal <0.01 [facility] Comment on above: Order Comment: Speci men Type: BLOOD SPECIMENOrdering Facility: [facility] Address: [address] [place] [address] Performed By: #### 5 7021-8 ####[facility] LABCLIA [id number] [address], [facility] [place] Nucleated RBC/100 WBC (Bld) [Ratio] 0.0 /100 WBC Normal [facility] Comment on above: Order Comment: Speci men Type: BLOOD SPECIMENOrdering Facility: [facility] Address: [address] [place] [address] Performed By: #### 5 7021-8 ####[facility] LABIA [id number] [address], [place] [address] [place] Platelet mean volume (Bld) [Entitic vol] 9.5 fL Normal 9.0-12.7 [facility] Comment on above: Order Comment: Speci men Type: BLOOD SPECIMENOrdering Facility: [facility] Address: [address] [place] [address] Performed By: #### 5 7021-8 ####[facility] LABCLIA [id number] [place] [id number] [place] Platelets (Bld) [#/Vol] 245 10*3/uL Normal 150-400 [facility] Comment on above: Order Comment: Speci men Type: BLOOD SPECIMENOrdering Facility: [facility] Address: [address] [place] [address] Performed By: #### 5 7021-8 ####[facility] LABCLIA [id number] [address], [facility] [place] RBC (Bld) [#/Vol] 2.87 10*6/uL Low 3.90-5.20 [facility] Comment on above: Order Comment: Speci men Type: BLOOD SPECIMENOrdering Facility: [facility] Address: [address] [place] [address] Performed By: #### 5 7021-8 ####[facility] LABCLIA [id number] [place] [address] [place] WBC (Bld) [#/Vol] 8.88 10*3/uL Normal 3.70-11.00 [facility] Comment on above: Order Comment: Speci men Type: BLOOD SPECIMENOrdering Facility: [facility] Address: [address] [place] [address] Performed By: #### 5 7021-8 ####[facility] LABCLIA [id number] [place] [address] [place] CONSULT PROGon 12-17-2024 CONSULT PROG Normal [facility] CONSULT PROG Normal [facility] CRP SerPl-mCncon 12-17-2024 CRP [Mass/Vol] 10.3 mg/dL High <0.9 [facility] Comment on above: Order Comment: Speci men Type: BLOOD SPECIMENOrdering Facility: [facility] Address: [address] [place] [address] Performed By: #### 1 988-5 ####[facility] LABCLIA [id number] [place] [address] [place] Comprehensive metabolic 2000 panelon 12-17-2024 Albumin [Mass/Vol] 2.6 g/dL Low 3.9-4.9 [facility] Comment on above: Order Comment: Speci men Type: BLOOD SPECIMENOrdering Facility: [facility] Address: [address] [place] [address] Performed By: #### 2 4323-8, 24129-0, 2777-1 ####[facility] LABCLIA [id number] [place] [id number] [place] ALP [Catalytic activity/Vol] 80 U/L Normal 34-123 [facility] Comment on above: Order Comment: Speci men Type: BLOOD SPECIMENOrdering Facility: [facility] [facility] Address: [address] [place] [address] Performed By: #### 2 4323-8, 76115-2, 2776- ####[facility] LABCLIA [id number] [place] [address] [place] ALT [Catalytic activity/Vol] 14 U/L Normal 7-38 [facility] Comment on above: Order Comment: Speci men Type: BLOOD SPECIMENOrdering Facility: [facility] Address: [address] [place] [address] Performed By: #### 2 4323-8, , 2776-06 ####[facility] LABCLIA [id number] [place] [address] [place] Anion gap [Moles/Vol] 12 mmol/L Normal 8-15 [facility] Comment on above: Order Comment: Speci men Type: BLOOD SPECIMENOrdering Facility: [facility] Address: [address] [place] [address] Performed By: #### 2 4323-8, , 2776-06 ####[facility] LABCLIA [id number] [place] [address] [place] AST [Catalytic activity/Vol] 7 U/L Low 13-35 [facility] Comment on above: Order Comment: Speci men Type: BLOOD SPECIMENOrdering Facility: [facility] Address: [address] [place] [address] Performed By: #### 2 4323-8, 05459-1, 2776- ####[facility] LABCLIA [id number] [place] [id number] [place] Bilirubin [Mass/Vol] 0.3 mg/dL Normal 0.2-1.3 [facility] Comment on above: Order Comment: Speci men Type: BLOOD SPECIMENOrdering Facility: [facility] Address: [address] [place] [address] Performed By: #### 2 4323-8, , 2776-06 ####[facility] LABCLIA [id number] [facility] [address] [address] [place] Calcium [Mass/Vol] 8.5 mg/dL Normal 8.5-10.2 [facility] Comment on above: Order Comment: Speci men Type: BLOOD SPECIMENOrdering Facility: [facility] Address: [address] [place] [address] Performed By: #### 2 4323-8, , 2776-06 ####[facility] LABCLIA [id number] [facility] [place] [address] [place] Chloride [Moles/Vol] 102 mmol/L Normal 98-107 [facility] Comment on above: Order Comment: Speci men Type: BLOOD SPECIMENOrdering Facility: [facility] Address: [address] [place], [place] [address] Performed By: #### 2 4323-8, , 2776-06 ####[facility] LABCLIA [id number] [facility] [address], [facility] [place] CO2 [Moles/Vol] 23 mmol/L Normal 22-30 [facility] Comment on above: Order Comment: Speci men Type: BLOOD SPECIMENOrdering Facility: [facility] Address: [address] [place] [address] Performed By: #### 2 4323-8, , 2776-06 ####[facility]CLIA [id number] [place] [address] [place] Creatinine [Mass/Vol] 0.58 mg/dL Normal 0.58-0.96 [facility] Comment on above: Order Comment: Speci men Type: BLOOD SPECIMENOrdering Facility: [facility] Address: [address] [place] [address] Performed By: #### 2 4323-8, 15678-9, 2777-1 ####[facility] LABIA [id number] [place] [address] [place] Creatinine and Glomerular filtration rate.predicted panel (S/P/Bld) 117 mL/min/1.73m??? Normal >=60 [facility] Comment on above: Order Comment: Dora finch Type: BLOOD SPECIMENOrdering Facility: [facility] Address: [address] [place] [address] Result Comment: Zeny mated Glomerular Filtration Rate [...] actual GFR. Performed By: #### 2 4323-8, 89843-7, 2777-1 ####[facility] LABIA [id number] [place] [address] [place] Glucose [Mass/Vol] 131 mg/dL High 74-99 [facility] Comment on above: Order Comment: Dora finch Type: BLOOD SPECIMENOrdering Facility: [facility] Address: [address] [place] [address] Result Comment: The [place] [employer] (ADA) provides guidance for cutoff [...] Standards of Medical Care in Diabetes 2016, [place] [employer]. Diabetes Care. 2016.39(Suppl 1). Performed By: #### 2 4323-8, , 2776-06 ####[facility] LABCLIA [id number] [address] [address] [place] Potassium [Moles/Vol] 2.9 mmol/L Low 3.7-5.1 [facility] Comment on above: Order Comment: Speci men Type: BLOOD SPECIMENOrdering Facility: [facility] Address: [address] [place] [address] Performed By: #### 2 4323-8, , 2776-06 ####[facility] LABCLIA [id number] [address] [address] [place] Protein [Mass/Vol] 5.5 g/dL Low 6.3-8.0 [facility] Comment on above: Order Comment: Speci men Type: BLOOD SPECIMENOrdering Facility: [facility] Address: [address] [place] [address] Performed By: #### 2 4323-8, , 2776-06 ####[facility] LABCLIA [id number] [address] [address] [place] Sodium [Moles/Vol] 137 mmol/L Normal 136-144 [facility] Comment on above: Order Comment: Speci men Type: BLOOD SPECIMENOrdering Facility: [facility] Address: [address] [place] [address] Performed By: #### 2 4323-8, , 2776-06 ####[facility] LABIA [id number] [address] [address] [place] Urea nitrogen [Mass/Vol] 11 mg/dL Normal 7-21 [facility] Comment on above: Order Comment: Speci men Type: BLOOD SPECIMENOrdering Facility: [facility] Address: [address] [place] [address] Performed By: #### 2 4323-8, 17204-6, 7-1 ####[facility] LABCLIA [id number] [place] [address] [place] Magnesium SerPl-mCncon 12-17 Magnesium [Mass/Vol] 1.8 mg/dL Normal 1.7-2.3 [facility] Comment on above: Order Comment: Speci men Type: BLOOD SPECIMENOrdering Facility: [facility] Address: [address] [place] [address] Performed By: #### 2 4323-8, 33132-7, 2776-06 ####[facility] LABCLIA [id number] [address], [place] [address] [place] Phosphate SerPl-mCncon 12-17 Phosphate [Mass/Vol] 3.1 mg/dL Normal 2.7-4.8 [facility] Comment on above: Order Comment: Speci men Type: BLOOD SPECIMENOrdering Facility: [facility] Address: [address] [place] [address] Performed By: #### 2 4323-8, , 27712-25 ####[facility] LABIA [id number] [place] [address] [place] CBC W Auto Differential pane l (Bld)on 12-16-2024 Basophils (Bld) [#/Vol] 10*3/uL Normal <0.11 [facility] Comment on above: Order Comment: Speci men Type: BLOOD SPECIMENOrdering Facility: [facility] Address: [address] [place] [address] Performed By: #### 5 7021-8 ####[facility] LABIA [id number] [place] [address] [place] Basophils/100 WBC (Bld) 0.2 % Normal [facility] Comment on above: Order Comment: Speci men Type: BLOOD SPECIMENOrdering Facility: [facility] Address: [address] [place] [address] Performed By: #### 5 7021-8 ####[facility] LABCLIA [id number] [place] [address] [place] Differential cell count method Nom (Bld) Auto Normal [facility] Comment on above: Order Comment: Speci men Type: BLOOD SPECIMENOrdering Facility: [facility] Address: [address] [place] [address] Performed By: #### 5 7021-8 ####[facility] LABCLIA [id number] [place] [address] [place] Eosinophils (Bld) [#/Vol] 0.32 10*3/uL Normal <0.46 [facility] Comment on above: Order Comment: Speci men Type: BLOOD SPECIMENOrdering Facility: [facility] Address: [address] [place] [address] Performed By: #### 5 7021-8 ####[facility] LABIA [id number] [place] [address] [place] Eosinophils/100 WBC (Bld) 3.7 % Normal [facility] Comment on above: Order Comment: Speci men Type: BLOOD SPECIMENOrdering Facility: [facility] Address: [address] [place] [address] Performed By: #### 5 7021-8 ####[facility] LABIA [id number] [place] [address] [place] Erythrocyte distribution width (RBC) [Ratio] 21.1 % High 11.5-15.0 [facility] Comment on above: Order Comment: Speci men Type: BLOOD SPECIMENOrdering Facility: [facility] Address: [address] [place] [address] Performed By: #### 5 7021-8 ####[facility] LABIA [id number] [place] [address] [place] Hematocrit (Bld) [Volume fraction] 24.0 % Low 36.0-46.0 [facility] Comment on above: Order Comment: Speci men Type: BLOOD SPECIMENOrdering Facility: [facility] Address: [address] [place] [address] Performed By: #### 5 7021-8 ####[facility] LABCLIA [id number] [place] [address] [place] Hemoglobin (Bld) [Mass/Vol] 7.4 g/dL Low 11.5-15.5 [facility] Comment on above: Order Comment: Speci men Type: BLOOD SPECIMENOrdering Facility: [facility] Address: [address] [place] [address] Performed By: #### 5 7021-8 ####[facility] LABCLIA [id number] [place] [address] [place] Immature granulocytes (Bld) [#/Vol] 0.04 10*3/uL Normal <0.10 [facility] Comment on above: Order Comment: Speci men Type: BLOOD SPECIMENOrdering Facility: [facility] Address: [address] [place] [address] Performed By: #### 5 7021-8 ####[facility] LABCLIA [id number] [place] [address] [place] Immature granulocytes/100 WBC (Bld) 0.5 % Normal [facility] Comment on above: Order Comment: Speci men Type: BLOOD SPECIMENOrdering Facility: [facility] Address: [address] [place] [address] Performed By: #### 5 7021-8 ####[facility] LABCLIA [id number] [place] [address] [place] Lymphocytes (Bld) [#/Vol] 1.03 10*3/uL Normal 1.00-4.00 [facility] Comment on above: Order Comment: Speci men Type: BLOOD SPECIMENOrdering Facility: [facility] Address: [address] [place] [address] Performed By: #### 5 7021-8 ####[facility] LABIA [id number] [place] [address] [place] Lymphocytes/100 WBC (Bld) 11.9 % Normal [facility] Comment on above: Order Comment: Speci men Type: BLOOD SPECIMENOrdering Facility: [facility] Address: [address] [place] [address] Performed By: #### 5 7021-8 ####[facility] LABIA [id number] [place] [address] [place] MCH (RBC) [Entitic mass] 26.9 pg Normal 26.0-34.0 [facility] Comment on above: Order Comment: Speci men Type: BLOOD SPECIMENOrdering Facility: [facility] Address: [address] [place] [address] Performed By: #### 5 7021-8 ####[facility] LABIA [id number] [place] [address] [place] MCHC (RBC) [Mass/Vol] 30.8 g/dL Normal 30.5-36.0 [facility] Comment on above: Order Comment: Speci men Type: BLOOD SPECIMENOrdering Facility: [facility] Address: [address] [place] [address] Performed By: #### 5 7021-8 ####[facility] LABCLIA [id number] [place] [address] [place] MCV (RBC) [Entitic vol] 87.3 fL Normal 80.0-100.0 [facility] Comment on above: Order Comment: Speci men Type: BLOOD SPECIMENOrdering Facility: [facility] Address: [address] [place] [address] Performed By: #### 5 7021-8 ####[facility] LABCLIA [id number] [address] [address] [place] Monocytes (Bld) [#/Vol] 0.59 10*3/uL Normal <0.87 [facility] Comment on above: Order Comment: Speci men Type: BLOOD SPECIMENOrdering Facility: [facility] Address: [address] [place] [address] Performed By: #### 5 7021-8 ####[facility] LABCLIA [id number] [address], [place] [address] [place] Monocytes/100 WBC (Bld) 6.8 % Normal [facility] Comment on above: Order Comment: Speci men Type: BLOOD SPECIMENOrdering Facility: [facility] Address: [address] [place] [address] Performed By: #### 5 7021-8 ####[facility] LABCLIA [id number] [place] [address] [place] Neutrophils (Bld) [#/Vol] 6.65 10*3/uL Normal 1.45-7.50 [facility] Comment on above: Order Comment: Speci men Type: BLOOD SPECIMENOrdering Facility: [facility] Address: [address] [place] [address] Performed By: #### 5 7021-8 ####[facility] LABCLIA [id number] [place] [address] [place] Neutrophils/100 WBC (Bld) 76.9 % Normal [facility] Comment on above: Order Comment: Speci men Type: BLOOD SPECIMENOrdering Facility: [facility] Address: [address] [place] [address] Performed By: #### 5 7021-8 ####[facility] LABCLIA [id number] [place] [address] [place] Nucleated RBC (Bld) [#/Vol] 10*3/uL Normal <0.01 [facility] Comment on above: Order Comment: Speci men Type: BLOOD SPECIMENOrdering Facility: [facility] Address: [address] [place] [address] Performed By: #### 5 7021-8 ####[facility] LABCLIA [id number] [place] [address] [place] Nucleated RBC/100 WBC (Bld) [Ratio] 0.0 /100 WBC Normal [facility] Comment on above: Order Comment: Speci men Type: BLOOD SPECIMENOrdering Facility: [facility] Address: [address] [place] [address] Performed By: #### 5 7021-8 ####[facility] LABCLIA [id number] [place] [address] [place] Platelet mean volume (Bld) [Entitic vol] 10.0 fL Normal 9.0-12.7 [facility] Comment on above: Order Comment: Speci men Type: BLOOD SPECIMENOrdering Facility: [facility] Address: [address] [place] [address] Performed By: #### 5 7021-8 ####[facility] LABIA [id number] [place] [address] [place] Platelets (Bld) [#/Vol] 225 10*3/uL Normal 150-400 [facility] Comment on above: Order Comment: Speci men Type: BLOOD SPECIMENOrdering Facility: [facility] Address: [address] [place] [address] Performed By: #### 5 7021-8 ####[facility] LABCLIA [id number] [place] [id number] [place] RBC (Bld) [#/Vol] 2.75 10*6/uL Low 3.90-5.20 [facility] Comment on above: Order Comment: Speci men Type: BLOOD SPECIMENOrdering Facility: [facility] Address: [address] [place] [address] Performed By: #### 5 7021-8 ####[facility] LABCLIA [id number] [address] [address] [place] WBC (Bld) [#/Vol] 8.65 10*3/uL Normal 3.70-11.00 [facility] Comment on above: Order Comment: Speci men Type: BLOOD SPECIMENOrdering Facility: [facility] Address: [address] [place] [address] Performed By: #### 5 7021-8 ####[facility] LABCLIA [id number] [address] [address] [place] Comprehensive metabolic 2000 panelon 12-16-2024 Albumin [Mass/Vol] 2.8 g/dL Low 3.9-4.9 [facility] Comment on above: Order Comment: Speci men Type: BLOOD SPECIMENOrdering Facility: [facility] Address: [address] [place] [address] Performed By: #### 2 4323-8, , 2776-06 ####[facility] LABIA [id number] [place] [address] [place] ALP [Catalytic activity/Vol] 84 U/L Normal 34-123 [facility] Comment on above: Order Comment: Speci men Type: BLOOD SPECIMENOrdering Facility: [facility] Address: [address] [place] [address] Performed By: #### 2 4323-8, , 2776-06 ####[facility] LABCLIA [id number] [place] [id number] [place] ALT [Catalytic activity/Vol] 16 U/L Normal 7-38 [facility] Comment on above: Order Comment: Speci men Type: BLOOD SPECIMENOrdering Facility: [facility] Address: [address] [place] [address] Performed By: #### 2 4323-8, , 2776-06 ####[facility] LABCLIA [id number] [address] [place] [address] [place] Anion gap [Moles/Vol] 12 mmol/L Normal 8-15 [facility] Comment on above: Order Comment: Speci men Type: BLOOD SPECIMENOrdering Facility: [facility] Address: [address] [place] [address] Performed By: #### 2 4323-8, 88566-7, 2776-06 ####[facility] LABCLIA [id number] [address], [place] [address] [place] AST [Catalytic activity/Vol] 11 U/L Low 13-35 [facility] Comment on above: Order Comment: Speci men Type: BLOOD SPECIMENOrdering Facility: [facility] Address: [address] [place] [address] Performed By: #### 2 4323-8, , 2776-06 ####[facility] LABCLIA [id number] [place] [address] [place] Bilirubin [Mass/Vol] 0.3 mg/dL Normal 0.2-1.3 [facility] Comment on above: Order Comment: Speci men Type: BLOOD SPECIMENOrdering Facility: [facility] Address: [address] [place] [address] Performed By: #### 2 4323-8, , 2776-06 ####[facility] LABCLIA [id number] [address], [facility] [place] Calcium [Mass/Vol] 8.6 mg/dL Normal 8.5-10.2 [facility] Comment on above: Order Comment: Speci men Type: BLOOD SPECIMENOrdering Facility: [facility] Address: [address] [place] [address] Performed By: #### 2 4323-8, , 2776-06 ####[facility] LABCLIA [id number] [address] [place] [address] [place] Chloride [Moles/Vol] 101 mmol/L Normal 98-107 [facility] Comment on above: Order Comment: Speci men Type: BLOOD SPECIMENOrdering Facility: [facility] Address: [address] [place] [address] Performed By: #### 2 4323-8, , 2776-06 ####[facility] LABCLIA [id number] [place] [address] [place] CO2 [Moles/Vol] 23 mmol/L Normal 22-30 [facility] Comment on above: Order Comment: Speci men Type: BLOOD SPECIMENOrdering Facility: [facility] Address: [address] [place] [address] Performed By: #### 2 4323-8, , 2776-06 ####[facility] LABIA [id number] [place] [address] [place] Creatinine [Mass/Vol] 0.64 mg/dL Normal 0.58-0.96 [facility] Comment on above: Order Comment: Speci men Type: BLOOD SPECIMENOrdering Facility: [facility] Address: [address] [place] [address] Performed By: #### 2 4323-8, , 2777 ####[facility] LABIA [id number] [place] [address] [place] Creatinine and Glomerular filtration rate.predicted panel (S/P/Bld) 114 mL/min/1.73m??? Normal >=60 [facility] Comment on above: Order Comment: Speci men Type: BLOOD SPECIMENOrdering Facility: [facility] Address: [address] [place] [address] Result Comment: Zeny mated Glomerular Filtration Rate [...] Performed By: #### 2 4323-8, , 2776-06 ####[facility] LABCLIA [id number] [address] [address] [place] Glucose [Mass/Vol] 140 mg/dL High 74-99 [facility] Comment on above: Order Comment: Speci men Type: BLOOD SPECIMENOrdering Facility: [facility] Address: [address] [place] [address] Result Comment: The [place] [employer] (ADA) provides guidance for cutoff [...] Standards of Medical Care in Diabetes 2016, [place] [employer]. Diabetes Care. 2016.39(Suppl 1). Performed By: #### 2 4323-8, , 2776-06 ####[facility] LABCLIA [id number] [address] [address] [place] Potassium [Moles/Vol] 2.8 mmol/L Low 3.7-5.1 [facility] Comment on above: Order Comment: Speci men Type: BLOOD SPECIMENOrdering Facility: [facility] Address: [address] [place] [address] Performed By: #### 2 4323-8, , 2776-06 ####[facility] LABIA [id number] [facility] [address] [address] [place] Protein [Mass/Vol] 5.7 g/dL Low 6.3-8.0 [facility] Comment on above: Order Comment: Speci men Type: BLOOD SPECIMENOrdering Facility: [facility] Address: [address] [place], [place] [address] Performed By: #### 2 4323-8, , 2776-06 ####[facility] LABCLIA [id number] [address] [address] [place] Sodium [Moles/Vol] 136 mmol/L Normal 136-144 [facility] Comment on above: Order Comment: Speci men Type: BLOOD SPECIMENOrdering Facility: [facility] Address: [address] [place], [place] [address] Performed By: #### 2 4323-8, , 2776-06 ####[facility] LABCLIA [id number] [place] [id number] [place] Urea nitrogen [Mass/Vol] 11 mg/dL Normal 7-21 [facility] Comment on above: Order Comment: Speci men Type: BLOOD SPECIMENOrdering Facility: [facility] Address: [address] [place] [address] Performed By: #### 2 4323-8, , 2776-06 ####[facility] LABIA [id number] [place] [address] [place] Magnesium SerPl-mCncon 12-16 Magnesium [Mass/Vol] 1.9 mg/dL Normal 1.7-2.3 [facility] Comment on above: Order Comment: Speci men Type: BLOOD SPECIMENOrdering Facility: [facility] Address: [address] [place], [place] [address] Performed By: #### 2 4323-8, , 2776-06 ####[facility] LABIA [id number] [address] [address] [place] Phosphate SerPl-mCncon 12-16 Phosphate [Mass/Vol] 2.4 mg/dL Low 2.7-4.8 [facility] Comment on above: Order Comment: Speci men Type: BLOOD SPECIMENOrdering Facility: [facility] Address: [address] [place] [address] Performed By: #### 2 4323-8, 96954-0, 2777-1 ####[facility] LABCLIA [id number] [address] [place] [address] [place] Vancomycin [place] SerPl-mCncon 12-16-2024 Vancomycin random [Mass/Vol] 11.6 ug/mL Normal 10.0-20.0 [facility] Comment on above: Order Comment: Speci men Type: BLOOD SPECIMENOrdering Facility: [facility] Address: [address] [place] [address] Result Comment: Refe rence ranges and high/low indicator flags are provided as general guidelines only. The treating physician must determine appropriate target levels/dosing based on the specific clinical situation. Performed By: #### 4 091-5 ####[facility] LABCLIA [id number] [address], [place] [address] [place] CBC W Auto Differential pane l (Bld)on 12-15-2024 Basophils (Bld) [#/Vol] 0.03 10*3/uL Normal <0.11 [facility] Comment on above: Order Comment: Speci men Type: BLOOD SPECIMENOrdering Facility: [facility] Address: [address] [place] [address] Performed By: #### 5 7021-8 ####[facility] [id number] [address], [facility] [place] Basophils/100 WBC (Bld) 0.3 % Normal [facility] Comment on above: Order Comment: Speci men Type: BLOOD SPECIMENOrdering Facility: [facility] Address: [address] [place] [address] Performed By: #### 5 7021-8 ####[facility]CLIA [id number] [place] [id number] [place] Differential cell count method Nom (Bld) Auto Normal [facility] Comment on above: Order Comment: Speci men Type: BLOOD SPECIMENOrdering Facility: [facility] Address: [address] [place] [address] Performed By: #### 5 7021-8 ####[facility] LABCLIA [id number] [address], [place] [address] [place] Eosinophils (Bld) [#/Vol] 0.38 10*3/uL Normal <0.46 [facility] Comment on above: Order Comment: Speci men Type: BLOOD SPECIMENOrdering Facility: [facility] Address: [address] [place] [address] Performed By: #### 5 7021-8 ####[facility] LABCLIA [id number] [place] [address] [place] Eosinophils/100 WBC (Bld) 3.4 % Normal [facility] Comment on above: Order Comment: Speci men Type: BLOOD SPECIMENOrdering Facility: [facility] Address: [address] [place] [address] Performed By: #### 5 7021-8 ####[facility] LABCLIA [id number] [place] [address] [place] Erythrocyte distribution width (RBC) [Ratio] 21.5 % High 11.5-15.0 [facility] Comment on above: Order Comment: Speci men Type: BLOOD SPECIMENOrdering Facility: [facility] Address: [address] [place] [address] Performed By: #### 5 7021-8 ####[facility] LABCLIA [id number] [place] [address] [place] Hematocrit (Bld) [Volume fraction] 25.3 % Low 36.0-46.0 [facility] Comment on above: Order Comment: Speci men Type: BLOOD SPECIMENOrdering Facility: [facility] Address: [address] [place] [address] Performed By: #### 5 7021-8 ####[facility]CLIA [id number] [place] [address] [place] Hemoglobin (Bld) [Mass/Vol] 7.6 g/dL Low 11.5-15.5 [facility] Comment on above: Order Comment: Speci men Type: BLOOD SPECIMENOrdering Facility: [facility] Address: [address] [place] [address] Performed By: #### 5 7021-8 ####[facility] LABCLIA [id number] [place] [address] [place] Immature granulocytes (Bld) [#/Vol] 0.08 10*3/uL Normal <0.10 [facility] Comment on above: Order Comment: Speci men Type: BLOOD SPECIMENOrdering Facility: [facility] Address: [address] [place] [address] Performed By: #### 5 7021-8 ####[facility] LABIA [id number] [place] [address] [place] Immature granulocytes/100 WBC (Bld) 0.7 % Normal [facility] Comment on above: Order Comment: Speci men Type: BLOOD SPECIMENOrdering Facility: [facility] Address: [address] [place] [address] Performed By: #### 5 7021-8 ####[facility] LABCLIA [id number] [place] [id number] [place] Lymphocytes (Bld) [#/Vol] 1.39 10*3/uL Normal 1.00-4.00 [facility] Comment on above: Order Comment: Speci men Type: BLOOD SPECIMENOrdering Facility: [facility] Address: [address] [place] [address] Performed By: #### 5 7021-8 ####[facility] LABCLIA [id number] [place] [id number] [place] Lymphocytes/100 WBC (Bld) 12.5 % Normal [facility] Comment on above: Order Comment: Speci men Type: BLOOD SPECIMENOrdering Facility: [facility] Address: [address] [place] [address] Performed By: #### 5 7021-8 ####[facility] LABIA [id number] [place] [address] [place] MCH (RBC) [Entitic mass] 26.4 pg Normal 26.0-34.0 [facility] Comment on above: Order Comment: Speci men Type: BLOOD SPECIMENOrdering Facility: [facility] Address: [address] [place] [address] Performed By: #### 5 7021-8 ####[facility] LABIA [id number] [place] [address] [place] MCHC (RBC) [Mass/Vol] 30.0 g/dL Low 30.5-36.0 [facility] Comment on above: Order Comment: Speci men Type: BLOOD SPECIMENOrdering Facility: [facility] Address: [address] [place] [address] Performed By: #### 5 7021-8 ####[facility] LABIA [id number] [place] [address] [place] MCV (RBC) [Entitic vol] 87.8 fL Normal 80.0-100.0 [facility] Comment on above: Order Comment: Speci men Type: BLOOD SPECIMENOrdering Facility: [facility] Address: [address] [place] [address] Performed By: #### 5 7021-8 ####[facility] LABIA [id number] [place] [address] [place] Monocytes (Bld) [#/Vol] 0.82 10*3/uL Normal <0.87 [facility] Comment on above: Order Comment: Speci men Type: BLOOD SPECIMENOrdering Facility: [facility] Address: [address] [place] [address] Performed By: #### 5 7021-8 ####[facility]CLIA [id number] [place] [address] [place] Monocytes/100 WBC (Bld) 7.4 % Normal [facility] Comment on above: Order Comment: Speci men Type: BLOOD SPECIMENOrdering Facility: [facility] Address: [address] [place] [address] Performed By: #### 5 7021-8 ####[facility] LABCLIA [id number] [place] [address] [place] Neutrophils (Bld) [#/Vol] 8.45 10*3/uL High 1.45-7.50 [facility] Comment on above: Order Comment: Speci men Type: BLOOD SPECIMENOrdering Facility: [facility] Address: [address] [place] [address] Performed By: #### 5 7021-8 ####[facility]CLIA [id number] [place] [address] [place] Neutrophils/100 WBC (Bld) 75.7 % Normal [facility] Comment on above: Order Comment: Speci men Type: BLOOD SPECIMENOrdering Facility: [facility] Address: [address] [place] [address] Performed By: #### 5 7021-8 ####[facility] LABCLIA [id number] [place] [id number] [place] Nucleated RBC (Bld) [#/Vol] 10*3/uL Normal <0.01 [facility] Comment on above: Order Comment: Speci men Type: BLOOD SPECIMENOrdering Facility: [facility] Address: [address] [place] [address] Performed By: #### 5 7021-8 ####[facility] LABCLIA [id number] [place] [id number] [place] Nucleated RBC/100 WBC (Bld) [Ratio] 0.0 /100 WBC Normal [facility] Comment on above: Order Comment: Speci men Type: BLOOD SPECIMENOrdering Facility: [facility] Address: [address] [place] [address] Performed By: #### 5 7021-8 ####[facility] LABCLIA [id number] [place] [id number] [place] Platelet mean volume (Bld) [Entitic vol] 10.1 fL Normal 9.0-12.7 [facility] Comment on above: Order Comment: Speci men Type: BLOOD SPECIMENOrdering Facility: [facility] Address: [address] [place] [address] Performed By: #### 5 7021-8 ####[facility] LABCLIA [id number] [place] [address] [place] Platelets (Bld) [#/Vol] 209 10*3/uL Normal 150-400 [facility] Comment on above: Order Comment: Speci men Type: BLOOD SPECIMENOrdering Facility: [facility] Address: [address] [place] [address] Performed By: #### 5 7021-8 ####[facility] LABIA [id number] [place] [id number] [place] RBC (Bld) [#/Vol] 2.88 10*6/uL Low 3.90-5.20 [facility] Comment on above: Order Comment: Speci men Type: BLOOD SPECIMENOrdering Facility: [facility] Address: [address] [place] [address] Performed By: #### 5 7021-8 ####[facility] LABCLIA [id number] [address] [address] [place] WBC (Bld) [#/Vol] 11.15 10*3/uL High 3.70-11.00 [facility] Comment on above: Order Comment: Speci men Type: BLOOD SPECIMENOrdering Facility: [facility] Address: [address] [place] [address] Performed By: #### 5 7021-8 ####[facility] LABIA [id number] [address] [address] [place] CBC panel Auto (Bld)on 12-15 Erythrocyte distribution width (RBC) [Ratio] 21.4 % High 11.5-15.0 [facility] Comment on above: Order Comment: Speci men Type: BLOOD SPECIMENOrdering Facility: [facility] Address: [address] [place] [address] Performed By: #### 5 8410-2 ####[facility] LABIA [id number] [place] [address] [place] Hematocrit (Bld) [Volume fraction] 25.5 % Low 36.0-46.0 [facility] Comment on above: Order Comment: Speci men Type: BLOOD SPECIMENOrdering Facility: [facility] Address: [address] [place] [address] Performed By: #### 5 8410-2 ####[facility] LABIA [id number] [place] [address] [place] Hemoglobin (Bld) [Mass/Vol] 7.7 g/dL Low 11.5-15.5 [facility] Comment on above: Order Comment: Speci men Type: BLOOD SPECIMENOrdering Facility: [facility] Address: [address] [place] [address] Performed By: #### 5 8410-2 ####[facility] [id number] [place] [id number] [place] MCH (RBC) [Entitic mass] 26.6 pg Normal 26.0-34.0 [facility] Comment on above: Order Comment: Speci men Type: BLOOD SPECIMENOrdering Facility: [facility] Address: [address] [place], [place] [address] Performed By: #### 5 8410-2 ####[facility] LABIA [id number] [place] [address] [place] MCHC (RBC) [Mass/Vol] 30.2 g/dL Low 30.5-36.0 [facility] Comment on above: Order Comment: Speci men Type: BLOOD SPECIMENOrdering Facility: [facility] Address: [address] [place] [address] Performed By: #### 5 8410-2 ####[facility] LABIA [id number] [place] [address] [place] MCV (RBC) [Entitic vol] 87.9 fL Normal 80.0-100.0 [facility] Comment on above: Order Comment: Speci men Type: BLOOD SPECIMENOrdering Facility: [facility] Address: [address] [place] [address] Performed By: #### 5 8410-2 ####[facility] LABIA [id number] [place] [address] [place] Nucleated RBC (Bld) [#/Vol] 10*3/uL Normal <0.01 [facility] Comment on above: Order Comment: Speci men Type: BLOOD SPECIMENOrdering Facility: [facility] Address: [address] [place] [address] Performed By: #### 5 8410-2 ####[facility] LABIA [id number] [place] [address] [place] Platelet mean volume (Bld) [Entitic vol] 9.6 fL Normal 9.0-12.7 [facility] Comment on above: Order Comment: Speci men Type: BLOOD SPECIMENOrdering Facility: [facility] Address: [address] [place] [address] Performed By: #### 5 8410-2 ####[facility] LABIA [id number] [address] [address] [place] Platelets (Bld) [#/Vol] 212 10*3/uL Normal 150-400 [facility] Comment on above: Order Comment: Speci men Type: BLOOD SPECIMENOrdering Facility: [facility] Address: [address] [place] [address] Performed By: #### 5 8410-2 ####[facility] LABCLIA [id number] [place] [id number] [place] RBC (Bld) [#/Vol] 2.90 10*6/uL Low 3.90-5.20 [facility] Comment on above: Order Comment: Speci men Type: BLOOD SPECIMENOrdering Facility: [facility] Address: [address] [place] [address] Performed By: #### 5 8410-2 ####[facility] LABCLIA [id number] [place] [address] [place] WBC (Bld) [#/Vol] 11.25 10*3/uL High 3.70-11.00 [facility] Comment on above: Order Comment: Speci men Type: BLOOD SPECIMENOrdering Facility: [facility] Address: [address] [place] [address] Performed By: #### 5 8410-2 ####[facility] LABCLIA [id number] [place] [address] [place] CRP SerPl-mCncon 12-15-2024 CRP [Mass/Vol] 26.8 mg/dL High <0.9 [facility] Comment on above: Order Comment: Speci men Type: BLOOD SPECIMENOrdering Facility: [facility] Address: [address] [place] [address] Performed By: #### 2 4323-8, 1987-5, 08848-1, 2777-1 ####[facility] LABCLIA [id number] [id number] [address] [place] Comprehensive metabolic 2000 panelon 12-15-2024 Albumin [Mass/Vol] 2.9 g/dL Low 3.9-4.9 [facility] Comment on above: Order Comment: Speci men Type: BLOOD SPECIMENOrdering Facility: [facility] Address: [address] [place] [address] Performed By: #### 2 8, 1987-10, , 2776-06 ####[facility] LABCLIA [id number] [place] [id number] [place] ALP [Catalytic activity/Vol] 95 U/L Normal 34-123 [facility] Comment on above: Order Comment: Speci men Type: BLOOD SPECIMENOrdering Facility: [facility] Address: [address] [place] [address] Performed By: #### 2 4328, 1987-10, , 2776-06 ####[facility] LABCLIA [id number] [place] [id number] [place] ALT [Catalytic activity/Vol] 19 U/L Normal 7-38 [facility] Comment on above: Order Comment: Speci men Type: BLOOD SPECIMENOrdering Facility: [facility] Address: [address] [place] [address] Performed By: #### 2 8, 1987-10, , 2776-06 ####[facility] LABCLIA [id number] [place] [address] [place] Anion gap [Moles/Vol] 11 mmol/L Normal 8-15 [facility] Comment on above: Order Comment: Speci men Type: BLOOD SPECIMENOrdering Facility: [facility] Address: [address] [place] [address] Performed By: #### 2 43209-01, 1987-10, , 2776-06 ####[facility] LABCLIA [id number] [address] [address] [place] AST [Catalytic activity/Vol] 11 U/L Low 13-35 [facility] Comment on above: Order Comment: Speci men Type: BLOOD SPECIMENOrdering Facility: [facility] Address: [address] [place], [place] [address] Performed By: #### 2 4328, 1987-10, , 2776-06 ####[facility] LABCLIA [id number] [place] [id number] [place] Bilirubin [Mass/Vol] 0.5 mg/dL Normal 0.2-1.3 [facility] Comment on above: Order Comment: Speci men Type: BLOOD SPECIMENOrdering Facility: [facility] Address: [address] [place] [address] Performed By: #### 2 4328, 1987-10, , 2776-06 ####[facility] LABIA [id number] [place] [address] [place] Calcium [Mass/Vol] 8.6 mg/dL Normal 8.5-10.2 [facility] Comment on above: Order Comment: Speci men Type: BLOOD SPECIMENOrdering Facility: [facility] Address: [address] [place] [address] Performed By: #### 2 4328, 1987-10, , 2776-06 ####[facility] LABIA [id number] [place] [id number] [place] Chloride [Moles/Vol] 100 mmol/L Normal 98-107 [facility] Comment on above: Order Comment: Speci men Type: BLOOD SPECIMENOrdering Facility: [facility] Address: [address] [place] [address] Performed By: #### 2 4328, 1987-10, , 2776-06 ####[facility] LABCLIA [id number] [address] [address] [place] CO2 [Moles/Vol] 23 mmol/L Normal 22-30 [facility] Comment on above: Order Comment: Speci men Type: BLOOD SPECIMENOrdering Facility: [facility] Address: [address] [place] [address] Performed By: #### 2 4328, 1987-10, , 2776-06 ####[facility] LABCLIA [id number] [place] [id number] [place] Creatinine [Mass/Vol] 0.75 mg/dL Normal 0.58-0.96 [facility] Comment on above: Order Comment: Speci men Type: BLOOD SPECIMENOrdering Facility: [facility] Address: [address] [place] [address] Performed By: #### 2 43209-01, 1987-10, , 2776-06 ####[facility] LABIA [id number] [place] [address] [place] Creatinine and Glomerular filtration rate.predicted panel (S/P/Bld) 103 mL/min/1.73m??? Normal >=60 [facility] Comment on above: Order Comment: Speci men Type: BLOOD SPECIMENOrdering Facility: [facility] Address: [address] [place] [address] Result Comment: Zeny mated Glomerular Filtration Rate [...] By: #### 2 4323-8, 1987-10, , 2776-06 ####[facility] LABCLIA [id number] [address] [address] [place] Glucose [Mass/Vol] 103 mg/dL High 74-99 [facility] Comment on above: Order Comment: Speci men Type: BLOOD SPECIMENOrdering Facility: [facility] Address: [address] [place] [address] Result Comment: The [place] [employer] (ADA) provides guidance for cutoff [...] Standards of Medical Care in Diabetes 2016, [place] [employer]. Diabetes Care. 2016.39(Suppl 1). Performed By: #### 2 43209-01, 1987-10, , 2776-06 ####[facility] LABIA [id number] [place] [address] [place] Potassium [Moles/Vol] 3.0 mmol/L Low 3.7-5.1 [facility] Comment on above: Order Comment: Florisammie finch Type: BLOOD SPECIMENOrdering Facility: [facility] Address: [address] [place] [address] Performed By: #### 2 43209-01, , 2776-06 ####[facility] LABIA [id number] [place] [id number] [place] Protein [Mass/Vol] 6.0 g/dL Low 6.3-8.0 [facility] Comment on above: Order Comment: Dora finch Type: BLOOD SPECIMENOrdering Facility: [facility] Address: [address] [place], [place] [id number] Performed By: #### 2 43209-01, 1987-10, , 2776-06 ####[facility] LABIA [id number] [place] [id number] [place] Sodium [Moles/Vol] 134 mmol/L Low 136-144 [facility] Comment on above: Order Comment: Speci men Type: BLOOD SPECIMENOrdering Facility: [facility] Address: [address] [place] [address] Performed By: #### 2 8, 1987-10, , 2776-06 ####[facility] LABCLIA [id number] [place] [address] [place] Urea nitrogen [Mass/Vol] 11 mg/dL Normal 7-21 [facility] Comment on above: Order Comment: Speci men Type: BLOOD SPECIMENOrdering Facility: [facility] Address: [address] [place] [address] Performed By: #### 2 8, 1987-10, , 2776-06 ####[facility] LABCLIA [id number] [place] [address] [place] Magnesium SerPl-mCncon 12-15 Magnesium [Mass/Vol] 1.9 mg/dL Normal 1.7-2.3 [facility] Comment on above: Order Comment: Speci men Type: BLOOD SPECIMENOrdering Facility: [facility] Address: [address] [place] [address] Performed By: #### 2 4328, 1987-10, , 2776-06 ####[facility] LABCLIA [id number] [place] [id number] [place] Phosphate SerPl-mCncon 12-15 Phosphate [Mass/Vol] 2.8 mg/dL Normal 2.7-4.8 [facility] Comment on above: Order Comment: Speci men Type: BLOOD SPECIMENOrdering Facility: [facility] Address: [address] [place] [address] Performed By: #### 2 432-8, 1987-10, , 2776-06 ####[facility] LABCLIA [id number] [address], [place] [address] [place] CASE MANAGEMon 12-14-2024 CASE MANAGEM Normal [facility] CBC W Auto Differential pane l (Bld)on 12-14-2024 Basophils (Bld) [#/Vol] 0.05 10*3/uL Normal <0.11 [facility] Comment on above: Order Comment: Speci men Type: BLOOD SPECIMENOrdering Facility: [facility] Address: [address] [place] [address] Performed By: #### 5 7021-8 ####[facility] LABCLIA [id number] [address], [place] [address] [place] Basophils/100 WBC (Bld) 0.3 % Normal [facility] Comment on above: Order Comment: Speci men Type: BLOOD SPECIMENOrdering Facility: [facility] Address: [address] [place] [address] Performed By: #### 5 7021-8 ####[facility] LABCLIA [id number] [address], [place] [address] [place] Differential cell count method Nom (Bld) Auto Normal [facility] Comment on above: Order Comment: Speci men Type: BLOOD SPECIMENOrdering Facility: [facility] Address: [address] [place] [address] Performed By: #### 5 7021-8 ####[facility] LABCLIA [id number] [address], [place] [address] [place] Eosinophils (Bld) [#/Vol] 0.14 10*3/uL Normal <0.46 [facility] Comment on above: Order Comment: Speci men Type: BLOOD SPECIMENOrdering Facility: [facility] Address: [address] [place] [address] Performed By: #### 5 7021-8 ####[facility] LABCLIA [id number] [address], [place] [address] [place] Eosinophils/100 WBC (Bld) 0.9 % Normal [facility] Comment on above: Order Comment: Speci men Type: BLOOD SPECIMENOrdering Facility: [facility] Address: [address] [place] [address] Performed By: #### 5 7021-8 ####[facility] LABIA [id number] [place] [address] [place] Erythrocyte distribution width (RBC) [Ratio] 22.0 % High 11.5-15.0 [facility] Comment on above: Order Comment: Speci men Type: BLOOD SPECIMENOrdering Facility: [facility] Address: [address] [place] [address] Performed By: #### 5 7021-8 ####[facility] LABIA [id number] [place] [address] [place] Hematocrit (Bld) [Volume fraction] 28.7 % Low 36.0-46.0 [facility] Comment on above: Order Comment: Speci men Type: BLOOD SPECIMENOrdering Facility: [facility] Address: [address] [place] [address] Performed By: #### 5 7021-8 ####[facility] LABIA [id number] [place] [address] [place] Hemoglobin (Bld) [Mass/Vol] 8.6 g/dL Low 11.5-15.5 [facility] Comment on above: Order Comment: Speci men Type: BLOOD SPECIMENOrdering Facility: [facility] Address: [address] [place] [address] Performed By: #### 5 7021-8 ####[facility] LABIA [id number] [place] [address] [place] Immature granulocytes (Bld) [#/Vol] 0.12 10*3/uL High <0.10 [facility] Comment on above: Order Comment: Speci men Type: BLOOD SPECIMENOrdering Facility: [facility] Address: [address] [place] [address] Performed By: #### 5 7021-8 ####[facility] LABCL[facility] [id number] [place] [address] [place] Immature granulocytes/100 WBC (Bld) 0.7 % Normal [facility] Comment on above: Order Comment: Speci men Type: BLOOD SPECIMENOrdering Facility: [facility] Address: [address] [place] [address] Performed By: #### 5 7021-8 ####[facility] LABCLIA [id number] [place] [address] [place] Lymphocytes (Bld) [#/Vol] 1.56 10*3/uL Normal 1.00-4.00 [facility] Comment on above: Order Comment: Speci men Type: BLOOD SPECIMENOrdering Facility: [facility] Address: [address] [place] [address] Performed By: #### 5 7021-8 ####[facility] LABIA [id number] [place] [address] [place] Lymphocytes/100 WBC (Bld) 9.7 % Normal [facility] Comment on above: Order Comment: Speci men Type: BLOOD SPECIMENOrdering Facility: [facility] Address: [address] [place] [address] Performed By: #### 5 7021-8 ####[facility] LABIA [id number] [place] [address] [place] MCH (RBC) [Entitic mass] 26.5 pg Normal 26.0-34.0 [facility] Comment on above: Order Comment: Speci men Type: BLOOD SPECIMENOrdering Facility: [facility] Address: [address] [place] [address] Performed By: #### 5 7021-8 ####[facility] LABCLIA [id number] [place] [address] [place] MCHC (RBC) [Mass/Vol] 30.0 g/dL Low 30.5-36.0 [facility] [facility] Comment on above: Order Comment: Speci men Type: BLOOD SPECIMENOrdering Facility: [facility] Address: [address] [place] [address] Performed By: #### 5 7021-8 ####[facility] LABCLIA [id number] [place] [address] [place] MCV (RBC) [Entitic vol] 88.6 fL Normal 80.0-100.0 [facility] Comment on above: Order Comment: Speci men Type: BLOOD SPECIMENOrdering Facility: [facility] Address: [address] [place] [address] Performed By: #### 5 7021-8 ####[facility] LABCLIA [id number] [place] [address] [place] Monocytes (Bld) [#/Vol] 1.48 10*3/uL High <0.87 [facility] Comment on above: Order Comment: Speci men Type: BLOOD SPECIMENOrdering Facility: [facility] Address: [address] [place] [address] Performed By: #### 5 7021-8 ####[facility] LABIA [id number] [place] [address] [place] Monocytes/100 WBC (Bld) 9.2 % Normal [facility] Comment on above: Order Comment: Speci men Type: BLOOD SPECIMENOrdering Facility: [facility] Address: [address] [place] [address] Performed By: #### 5 7021-8 ####[facility] LABIA [id number] [place] [address] [place] Neutrophils (Bld) [#/Vol] 12.66 10*3/uL High 1.45-7.50 [facility] Comment on above: Order Comment: Speci men Type: BLOOD SPECIMENOrdering Facility: [facility] Address: [address] [place] [address] Performed By: #### 5 7021-8 ####[facility] LABCLIA [id number] [place] [address] [place] Neutrophils/100 WBC (Bld) 79.2 % Normal [facility] Comment on above: Order Comment: Speci men Type: BLOOD SPECIMENOrdering Facility: [facility] Address: [address] [place] [address] Performed By: #### 5 7021-8 ####[facility] LABIA [id number] [address], [place] [address] [place] Nucleated RBC (Bld) [#/Vol] 0.02 10*3/uL High <0.01 [facility] Comment on above: Order Comment: Speci men Type: BLOOD SPECIMENOrdering Facility: [facility] Address: [address] [place] [address] Performed By: #### 5 7021-8 ####[facility] LABIA [id number] [place] [address] [place] Nucleated RBC/100 WBC (Bld) [Ratio] 0.1 /100 WBC Normal [facility] Comment on above: Order Comment: Speci men Type: BLOOD SPECIMENOrdering Facility: [facility] Address: [address] [place] [address] Performed By: #### 5 7021-8 ####[facility] LABIA [id number] [place] [address] [place] Platelet mean volume (Bld) [Entitic vol] 9.7 fL Normal 9.0-12.7 [facility] Comment on above: Order Comment: Speci men Type: BLOOD SPECIMENOrdering Facility: [facility] Address: [address] [place] [address] Performed By: #### 5 7021-8 ####[facility] LABIA [id number] [address] [address] [place] Platelets (Bld) [#/Vol] 236 10*3/uL Normal 150-400 [facility] Comment on above: Order Comment: Speci men Type: BLOOD SPECIMENOrdering Facility: [facility] Address: [address] [place] [address] Performed By: #### 5 7021-8 ####[facility] LABCLIA [id number] [place] [address] [place] RBC (Bld) [#/Vol] 3.24 10*6/uL Low 3.90-5.20 [facility] Comment on above: Order Comment: Speci men Type: BLOOD SPECIMENOrdering Facility: [facility] Address: [address] [place] [address] Performed By: #### 5 7021-8 ####[facility] LABCLIA [id number] [place] [address] [place] WBC (Bld) [#/Vol] 16.01 10*3/uL High 3.70-11.00 [facility] Comment on above: Order Comment: Speci men Type: BLOOD SPECIMENOrdering Facility: [facility] Address: [address] [place] [address] Performed By: #### 5 7021-8 ####[facility] LABCLIA [id number] [place] [address] [place] CONSULT PROGon 12-14-2024 CONSULT PROG Normal [facility] CONSULT PROG Normal [facility] Comprehensive metabolic 2000 panelon 12-14-2024 Albumin [Mass/Vol] 3.3 g/dL Low 3.9-4.9 [facility] Comment on above: Order Comment: Speci men Type: BLOOD SPECIMENOrdering Facility: [facility] Address: [address] [place] [address] Performed By: #### 2 4323-8, 18529-7, 2777-1 ####[facility] LABCLIA [id number] [facility] [place] [id number] [place] ALP [Catalytic activity/Vol] 103 U/L Normal 34-123 [facility] Comment on above: Order Comment: Speci men Type: BLOOD SPECIMENOrdering Facility: [facility] Address: [address] [place] [address] Performed By: #### 2 4323-8, 03322-9, 2776-06 ####[facility] LABCLIA [id number] [place] [address] [place] ALT [Catalytic activity/Vol] 25 U/L Normal 7-38 [facility] Comment on above: Order Comment: Speci men Type: BLOOD SPECIMENOrdering Facility: [facility] Address: [address] [place] [address] Performed By: #### 2 4323-8, , 2776-06 ####[facility] LABIA [id number] [place] [address] [place] Anion gap [Moles/Vol] 12 mmol/L Normal 8-15 [facility] Comment on above: Order Comment: Speci men Type: BLOOD SPECIMENOrdering Facility: [facility] Address: [address] [place] [address] Performed By: #### 2 4323-8, , 2776-06 ####[facility] LABIA [id number] [place] [address] [place] AST [Catalytic activity/Vol] 19 U/L Normal 13-35 [facility] Comment on above: Order Comment: Speci men Type: BLOOD SPECIMENOrdering Facility: [facility] Address: [address] [place] [address] Performed By: #### 2 4323-8, 20803-9, 2776- ####[facility] LABCLIA [id number] [place] [id number] [place] Bilirubin [Mass/Vol] 0.9 mg/dL Normal 0.2-1.3 [facility] Comment on above: Order Comment: Speci men Type: BLOOD SPECIMENOrdering Facility: [facility] Address: [address] [place], [place] [address] Performed By: #### 2 4323-8, , 2776-06 ####[facility] LABCLIA [id number] [facility] [address] [place] [address] [place] Calcium [Mass/Vol] 8.6 mg/dL Normal 8.5-10.2 [facility] Comment on above: Order Comment: Speci men Type: BLOOD SPECIMENOrdering Facility: [facility] Address: [address] [place] [address] Performed By: #### 2 4323-8, , 2776-06 ####[facility] LABCLIA [id number] [place] [address] [place] Chloride [Moles/Vol] 100 mmol/L Normal 98-107 [facility] Comment on above: Order Comment: Speci men Type: BLOOD SPECIMENOrdering Facility: [facility] Address: [address] [place], [place] [address] Performed By: #### 2 4323-8, , 2776-06 ####[facility] LABCLIA [id number] [place] [id number] [place] CO2 [Moles/Vol] 21 mmol/L Low 22-30 [facility] Comment on above: Order Comment: Speci men Type: BLOOD SPECIMENOrdering Facility: [facility] Address: [address] [place] [address] Performed By: #### 2 4323-8, , 2776-06 ####[facility] LABCLIA [id number] [facility] [address] [place] [address] [place] Creatinine [Mass/Vol] 0.91 mg/dL Normal 0.58-0.96 [facility] Comment on above: Order Comment: Speci men Type: BLOOD SPECIMENOrdering Facility: [facility] Address: [address] [place] [address] Performed By: #### 2 4323-8, 43139-4, 2776-06 ####[facility] LABIA [id number] [place] [id number] [place] Creatinine and Glomerular filtration rate.predicted panel (S/P/Bld) 81 mL/min/1.73m??? Normal >=60 [facility] Comment on above: Order Comment: Dora finch Type: BLOOD SPECIMENOrdering Facility: [facility] Address: [address] [place] [address] Result Comment: Zeny mated Glomerular Filtration Rate [...] actual GFR. Performed By: #### 2 4323-8, 11397-5, 2776-06 ####[facility] LABIA [id number] [place] [id number] [place] Glucose [Mass/Vol] 139 mg/dL High 74-99 [facility] Comment on above: Order Comment: Dora finch Type: BLOOD SPECIMENOrdering Facility: [facility] Address: [address] [place] [address] Result Comment: The [place] [employer] (ADA) provides guidance for cutoff [...] Standards of Medical Care in Diabetes 2016, [place] [employer]. Diabetes Care. 2016.39(Suppl 1). Performed By: #### 2 4323-8, , 2776-06 ####[facility] LABCLIA [id number] [address] [address] [place] Potassium [Moles/Vol] 3.8 mmol/L Normal 3.7-5.1 [facility] Comment on above: Order Comment: Speci men Type: BLOOD SPECIMENOrdering Facility: [facility] Address: [address] [place] [address] Performed By: #### 2 4323-8, , 2776-06 ####[facility] LABCLIA [id number] [address] [address] [place] Protein [Mass/Vol] 6.2 g/dL Low 6.3-8.0 [facility] Comment on above: Order Comment: Speci men Type: BLOOD SPECIMENOrdering Facility: [facility] Address: [address] [place] [address] Performed By: #### 2 4323-8, , 2776-06 ####[facility] LABCLIA [id number] [address] [address] [place] Sodium [Moles/Vol] 133 mmol/L Low 136-144 [facility] Comment on above: Order Comment: Speci men Type: BLOOD SPECIMENOrdering Facility: [facility] Address: [address] [place] [address] Performed By: #### 2 4323-8, , 2776-06 ####[facility] LABCLIA [id number] [address] [address] [place] Urea nitrogen [Mass/Vol] 11 mg/dL Normal 7-21 [facility] Comment on above: Order Comment: Speci men Type: BLOOD SPECIMENOrdering Facility: [facility] Address: [address] [place], [place] [address] Performed By: #### 2 4323-8, 79417-7, 2776-06 ####[facility] LABCLIA [id number] [place] [id number] [place] Magnesium [facility]Pl[facility]14 Magnesium [Mass/Vol] 1.9 mg/dL Normal 1.7-2.3 [facility] Comment on above: Order Comment: Speci men Type: BLOOD SPECIMENOrdering Facility: [facility] Address: [address] [place] [address] Performed By: #### 2 4323-8, , 2776-06 ####[facility] LABCLIA [id number] [place] [address] [place] Phosphate SerPl-mCncon 12-14 Phosphate [Mass/Vol] 2.3 mg/dL Low 2.7-4.8 [facility] Comment on above: Order Comment: Speci men Type: BLOOD SPECIMENOrdering Facility: [facility] Address: [address] [place] [address] Performed By: #### 2 4323-8, , 2776-06 ####[facility] LABCLIA [id number] [place] [address] [place] XR ABDOMEN 1V SUPINEon 12-14 XR ABDOMEN 1V SUPINE Normal [facility] CBC W Auto Differential pane l (Bld)on 12-13-2024 Basophils (Bld) [#/Vol] 0.04 10*3/uL Normal <0.11 [facility] Comment on above: Order Comment: Speci men Type: BLOOD SPECIMENOrdering Facility: [facility] Address: [address] [place] [address] Performed By: #### 5 7021-8 ####[facility] LABCLIA [id number] [place] [address] [place] Basophils/100 WBC (Bld) 0.3 % Normal [facility] Comment on above: Order Comment: Speci men Type: BLOOD SPECIMENOrdering Facility: [facility] Address: [address] [place] [address] Performed By: #### 5 7021-8 ####[facility] LABCLIA [id number] [place] [id number] [place] Differential cell count method Nom (Bld) Auto Normal [facility] Comment on above: Order Comment: Speci men Type: BLOOD SPECIMENOrdering Facility: [facility] Address: [address] [place] [address] Performed By: #### 5 7021-8 ####[facility] LABCLIA [id number] [place] [address] [place] Eosinophils (Bld) [#/Vol] 10*3/uL Normal <0.46 [facility] Comment on above: Order Comment: Speci men Type: BLOOD SPECIMENOrdering Facility: [facility] Address: [address] [place] [address] Performed By: #### 5 7021-8 ####[facility] LABCLIA [id number] [place] [address] [place] Eosinophils/100 WBC (Bld) 0.1 % Normal [facility] Comment on above: Order Comment: Speci men Type: BLOOD SPECIMENOrdering Facility: [facility] Address: [address] [place] [address] Performed By: #### 5 7021-8 ####[facility] LABCLIA [id number] [place] [id number] [place] Erythrocyte distribution width (RBC) [Ratio] 23.1 % High 11.5-15.0 [facility] Comment on above: Order Comment: Speci men Type: BLOOD SPECIMENOrdering Facility: [facility] Address: [address] [place] [address] Performed By: #### 5 7021-8 ####[facility] LABCLIA [id number] [place] [address] [place] Hematocrit (Bld) [Volume fraction] 34.3 % Low 36.0-46.0 [facility] Comment on above: Order Comment: Speci men Type: BLOOD SPECIMENOrdering Facility: [facility] Address: [address] [place] [address] Performed By: #### 5 7021-8 ####[facility] LABIA [id number] [place] [address] [place] Hemoglobin (Bld) [Mass/Vol] 10.3 g/dL Low 11.5-15.5 [facility] Comment on above: Order Comment: Speci men Type: BLOOD SPECIMENOrdering Facility: [facility] Address: [address] [place] [address] Performed By: #### 5 7021-8 ####[facility] LABIA [id number] [place] [address] [place] Immature granulocytes (Bld) [#/Vol] 0.12 10*3/uL High <0.10 [facility] Comment on above: Order Comment: Speci men Type: BLOOD SPECIMENOrdering Facility: [facility] Address: [address] [place] [address] Performed By: #### 5 7021-8 ####[facility] LABIA [id number] [place] [address] [place] Immature granulocytes/100 WBC (Bld) 0.8 % Normal [facility] Comment on above: Order Comment: Speci men Type: BLOOD SPECIMENOrdering Facility: [facility] Address: [address] [place] [address] Performed By: #### 5 7021-8 ####[facility] LABIA [id number] [place] [address] [place] Lymphocytes (Bld) [#/Vol] 1.27 10*3/uL Normal 1.00-4.00 [facility] Comment on above: Order Comment: Speci men Type: BLOOD SPECIMENOrdering Facility: [facility] Address: [address] [place] [address] Performed By: #### 5 7021-8 ####[facility] LABIA [id number] [place] [address] [place] Lymphocytes/100 WBC (Bld) 8.0 % Normal [facility] Comment on above: Order Comment: Speci men Type: BLOOD SPECIMENOrdering Facility: [facility] Address: [address] [place] [address] Performed By: #### 5 7021-8 ####[facility] [id number] [place] [address] [place] MCH (RBC) [Entitic mass] 26.9 pg Normal 26.0-34.0 [facility] Comment on above: Order Comment: Speci men Type: BLOOD SPECIMENOrdering Facility: [facility] Address: [address] [place] [address] Performed By: #### 5 7021-8 ####[facility] [id number] [place] [address] [place] MCHC (RBC) [Mass/Vol] 30.0 g/dL Low 30.5-36.0 [facility] Comment on above: Order Comment: Speci men Type: BLOOD SPECIMENOrdering Facility: [facility] Address: [address] [place] [address] Performed By: #### 5 7021-8 ####[facility] LABIA [id number] [place] [address] [place] MCV (RBC) [Entitic vol] 89.6 fL Normal 80.0-100.0 [facility] Comment on above: Order Comment: Speci men Type: BLOOD SPECIMENOrdering Facility: [facility] Address: [address] [place] [address] Performed By: #### 5 7021-8 ####[facility] LABCLIA [id number] [facility] [address] [place] [address] [place] Monocytes (Bld) [#/Vol] 1.51 10*3/uL High <0.87 [facility] Comment on above: Order Comment: Speci men Type: BLOOD SPECIMENOrdering Facility: [facility] Address: [address] [place] [address] Performed By: #### 5 7021-8 ####[facility] LABCLIA [id number] [address], [facility] [place] Monocytes/100 WBC (Bld) 9.5 % Normal [facility] Comment on above: Order Comment: Speci men Type: BLOOD SPECIMENOrdering Facility: [facility] Address: [address] [place] [address] Performed By: #### 5 7021-8 ####[facility] LABCLIA [id number] [address], [place] [address] [place] Neutrophils (Bld) [#/Vol] 12.87 10*3/uL High 1.45-7.50 [facility] Comment on above: Order Comment: Speci men Type: BLOOD SPECIMENOrdering Facility: [facility] Address: [address] [place] [address] Performed By: #### 5 7021-8 ####[facility] LABCLIA [id number] [address], [facility] [place] Neutrophils/100 WBC (Bld) 81.3 % Normal [facility] Comment on above: Order Comment: Speci men Type: BLOOD SPECIMENOrdering Facility: [facility] Address: [address] [place] [address] Performed By: #### 5 7021-8 ####[facility] LABCLIA [id number] [address], [facility] [place] Nucleated RBC (Bld) [#/Vol] 0.02 10*3/uL High <0.01 [facility] Comment on above: Order Comment: Speci men Type: BLOOD SPECIMENOrdering Facility: [facility] Address: [address] [place] [address] Performed By: #### 5 7021-8 ####[facility] LABCLIA [id number] [place] [address] [place] Nucleated RBC/100 WBC (Bld) [Ratio] 0.1 /100 WBC Normal [facility] Comment on above: Order Comment: Speci men Type: BLOOD SPECIMENOrdering Facility: [facility] Address: [address] [place] [address] Performed By: #### 5 7021-8 ####[facility] LABIA [id number] [place] [address] [place] Platelet mean volume (Bld) [Entitic vol] 9.7 fL Normal 9.0-12.7 [facility] Comment on above: Order Comment: Speci men Type: BLOOD SPECIMENOrdering Facility: [facility] Address: [address] [place] [address] Performed By: #### 5 7021-8 ####[facility] LABIA [id number] [place] [address] [place] Platelets (Bld) [#/Vol] 274 10*3/uL Normal 150-400 [facility] Comment on above: Order Comment: Speci men Type: BLOOD SPECIMENOrdering Facility: [facility] Address: [address] [place] [address] Performed By: #### 5 7021-8 ####[facility] LABIA [id number] [place] [address] [place] RBC (Bld) [#/Vol] 3.83 10*6/uL Low 3.90-5.20 [facility] Comment on above: Order Comment: Speci men Type: BLOOD SPECIMENOrdering Facility: [facility] Address: [address] [place] [address] Performed By: #### 5 7021-8 ####[facility] LABCLIA [id number] [place] [id number] [place] WBC (Bld) [#/Vol] 15.82 10*3/uL High 3.70-11.00 [facility] Comment on above: Order Comment: Speci men Type: BLOOD SPECIMENOrdering Facility: [facility] Address: [address] [place] [address] Performed By: #### 5 7021-8 ####[facility] LABCLIA [id number] [place] [address] [place] CNPNon 12-13-2024 CNPN Normal [facility] CONSULTon 12-13-2024 CONSULT Normal [facility] CONSULT PROGon 12-13-2024 CONSULT PROG Normal [facility] CONSULT PROG Normal [facility] CRP SerPl-mCncon 12-13-2024 CRP [Mass/Vol] 14.4 mg/dL High <0.9 [facility] Comment on above: Order Comment: Speci men Type: BLOOD SPECIMENOrdering Facility: [facility] Address: [address] [place] [address] Performed By: #### 1 988-5 ####[facility] LABCLIA [id number] [place] [id number] [place] Comprehensive metabolic 2000 panelon 12-13-2024 Albumin [Mass/Vol] 3.8 g/dL Low 3.9-4.9 [facility] Comment on above: Order Comment: Speci men Type: BLOOD SPECIMENOrdering Facility: [facility] Address: [address] [place] [address] Performed By: #### 2 4323-8, 19828-6, 2777-1 ####[facility] LABCLIA [id number] [place] [address] [place] ALP [Catalytic activity/Vol] 118 U/L Normal 34-123 [facility] Comment on above: Order Comment: Speci men Type: BLOOD SPECIMENOrdering Facility: [facility] Address: [address] [place] [address] Performed By: #### 2 4323-8, , 2776-06 ####[facility] LABCLIA [id number] [place] [address] [place] ALT [Catalytic activity/Vol] 40 U/L High 7-38 [facility] Comment on above: Order Comment: Speci men Type: BLOOD SPECIMENOrdering Facility: [facility] Address: [address] [place] [address] Performed By: #### 2 4323-8, , 2776-06 ####[facility] LABCLIA [id number] [place] [address] [place] Anion gap [Moles/Vol] 14 mmol/L Normal 8-15 [facility] Comment on above: Order Comment: Speci men Type: BLOOD SPECIMENOrdering Facility: [facility] Address: [address] [place] [address] Performed By: #### 2 4323-8, , 2776-06 ####[facility] LABCLIA [id number] [place] [id number] [place] AST [Catalytic activity/Vol] 31 U/L Normal 13-35 [facility] Comment on above: Order Comment: Speci men Type: BLOOD SPECIMENOrdering Facility: [facility] Address: [address] [place], [place] [address] Performed By: #### 2 4323-8, , 2776-06 ####[facility] LABCLIA [id number] [facility] [address] [address] [place] Bilirubin [Mass/Vol] 1.1 mg/dL Normal 0.2-1.3 [facility] Comment on above: Order Comment: Speci men Type: BLOOD SPECIMENOrdering Facility: [facility] Address: [address] [place] [address] Performed By: #### 2 4323-8, , 2776-06 ####[facility] LABCLIA [id number] [address] [address] [place] Calcium [Mass/Vol] 9.0 mg/dL Normal 8.5-10.2 [facility] Comment on above: Order Comment: Speci men Type: BLOOD SPECIMENOrdering Facility: [facility] Address: [address] [place], [place] [id number] Performed By: #### 2 4323-8, , 2776-06 ####[facility] LABCLIA [id number] [address] [address] [place] Chloride [Moles/Vol] 102 mmol/L Normal 98-107 [facility] Comment on above: Order Comment: Speci men Type: BLOOD SPECIMENOrdering Facility: [facility] Address: [address] [place], [place] [id number] Performed By: #### 2 4323-8, , 2776-06 ####[facility] LABCLIA [id number] [address] [address] [place] CO2 [Moles/Vol] 21 mmol/L Low 22-30 [facility] Comment on above: Order Comment: Speci men Type: BLOOD SPECIMENOrdering Facility: [facility] Address: [address] [place] [address] Performed By: #### 2 4323-8, , 2776-06 ####[facility] LABCLIA [id number] [address] [address] [place] Creatinine [Mass/Vol] 0.74 mg/dL Normal 0.58-0.96 [facility] Comment on above: Order Comment: Speci men Type: BLOOD SPECIMENOrdering Facility: [facility] Address: [address] [place] [address] Performed By: #### 2 4323-8, 91080-6, 2777-1 ####[facility] LABIA [id number] [place] [address] [place] Creatinine and Glomerular filtration rate.predicted panel (S/P/Bld) 104 mL/min/1.73m??? Normal >=60 [facility] Comment on above: Order Comment: Dora finch Type: BLOOD SPECIMENOrdering Facility: [facility] Address: [address] [place] [address] Result Comment: Zeny mated Glomerular Filtration Rate [...] actual GFR. Performed By: #### 2 4323-8, 80327-6, 2777- ####[facility] LABIA [id number] [place] [id number] [place] Glucose [Mass/Vol] 124 mg/dL High 74-99 [facility] Comment on above: Order Comment: Dora finch Type: BLOOD SPECIMENOrdering Facility: [facility] Address: [address] [place] [address] Result Comment: The [place] [employer] (ADA) provides guidance for cutoff [...] Standards of Medical Care in Diabetes 2016, [place] [employer]. Diabetes Care. 2016.39(Suppl 1). Performed By: #### 2 4323-8, , 2776-06 ####[facility] LABCLIA [id number] [address] [address] [place] Potassium [Moles/Vol] 4.5 mmol/L Normal 3.7-5.1 [facility] Comment on above: Order Comment: Speci men Type: BLOOD SPECIMENOrdering Facility: [facility] Address: [address] [place], [place] [id number] Performed By: #### 2 432-8, , 2776-06 ####[facility] LABIA [id number] [address] [address] [place] Protein [Mass/Vol] 6.5 g/dL Normal 6.3-8.0 [facility] Comment on above: Order Comment: Speci men Type: BLOOD SPECIMENOrdering Facility: [facility] Address: [address] [place] [address] Performed By: #### 2 432-8, , 2776-06 ####[facility] LABIA [id number] [address] [address] [place] Sodium [Moles/Vol] 137 mmol/L Normal 136-144 [facility] Comment on above: Order Comment: Speci men Type: BLOOD SPECIMENOrdering Facility: [facility] Address: [address] [place] [address] Performed By: #### 2 432-8, , 2776-06 ####[facility] LABIA [id number] [address] [address] [place] Urea nitrogen [Mass/Vol] 11 mg/dL Normal 7-21 [facility] Comment on above: Order Comment: Speci men Type: BLOOD SPECIMENOrdering Facility: [facility] Address: [address] [place] [address] Performed By: #### 2 4323-8, , 2776-06 ####[facility] LABCLIA [id number] [address] [address] [place] Magnesium SerPl-ncon 12-13 Magnesium [Mass/Vol] 1.6 mg/dL Low 1.7-2.3 [facility] Comment on above: Order Comment: Speci men Type: BLOOD SPECIMENOrdering Facility: [facility] Address: [address] [place] [address] Performed By: #### 2 4323-8, 71880-9, 2776-06 ####[facility] LABCLIA [id number] [place] [id number] [place] Phosphate SerPl-mCncon 12-13 Phosphate [Mass/Vol] 3.8 mg/dL Normal 2.7-4.8 [facility] Comment on above: Order Comment: Speci men Type: BLOOD SPECIMENOrdering Facility: [facility] Address: [address] [place] [address] Performed By: #### 2 4323-8, 45496-5, 2776-06 ####[facility] LABIA [id number] [place] [id number] [place] ANES POSTPROC EVALon 025 ANES POSTPROC EVAL Normal [facility] ANES PRE-OPon 12-12-2024 ANES PRE-OP Normal [facility] ARTERIAL BLOOD GASESon 12-12 Base deficit (BldA) [Moles/Vol] -6 mmol/L Low -2-0 [facility] Comment on above: Order Comment: Speci men Type: ARTERIAL BLOOD SPECIMENOrdering Facility: [facility] Address: [address] [place] [address] Performed By: #### A LLBG ####[facility] LABCLIA [id number] [place] [id number] [place] Body temperature 97.34 [degF] Normal [facility] Comment on above: Order Comment: Speci men Type: ARTERIAL BLOOD SPECIMENOrdering Facility: [facility] Address: [address] [place] [address] Performed By: #### A LLBG ####[facility] LABIA [id number] [place] [address] [place] Calcium.ionized (Bld) [Mass/Vol] 1.19 mmol/L Normal 1.08-1.30 [facility] Comment on above: Order Comment: Speci men Type: ARTERIAL BLOOD SPECIMENOrdering Facility: [facility] Address: [address] [place] [address] Performed By: #### A LLBG ####[facility] [id number] [place] [address] [place] Calcium.ionized adjusted to pH 7.4 (BldA) [Moles/Vol] 1.15 mmol/L Normal 1.08-1.30 [facility] Comment on above: Order Comment: Speci men Type: ARTERIAL BLOOD SPECIMENOrdering Facility: [facility] Address: [address] [place] [address] Performed By: #### A LLBG ####[facility] LABIA [id number] [place] [address] [place] Carboxyhemoglobin (BldA) [Mass fraction] 1.6 % Normal 0.0-2.0 [facility] Comment on above: Order Comment: Speci men Type: ARTERIAL BLOOD SPECIMENOrdering Facility: [facility] Address: [address] [place] [address] Result Comment: Carb oxyhemoglobin Reference Range for Smokers: 2.0-8.0% Performed By: #### A LLBG ####[facility] LABIA [id number] [place] [address] [place] CO2 (Bld) [Partial pressure] 38 mm Hg Normal 36-46 [facility] Comment on above: Order Comment: Speci men Type: ARTERIAL BLOOD SPECIMENOrdering Facility: [facility] Address: [address] [place] [address] Performed By: #### A LLBG ####[facility] LABCLIA [id number] [place] [address] [place] CO2 adjusted to patient's actual temperature (Bld) [Partial pressure] 36 mmHg Normal 36-46 [facility] Comment on above: Order Comment: Speci men Type: ARTERIAL BLOOD SPECIMENOrdering Facility: [facility] Address: [address] [place] [address] Performed By: #### A LLBG ####[facility] LABCLIA [id number] [place] [address] [place] Glucose [Mass/Vol] 178 mg/dL High 60-105 [facility] Comment on above: Order Comment: Speci men Type: ARTERIAL BLOOD SPECIMENOrdering Facility: [facility] Address: [address] [place] [address] Performed By: #### A LLBG ####[facility] LABCLIA [id number] [place] [id number] [place] HCO3 (Bld) [Moles/Vol] 19 mmol/L Low 22-26 [facility] Comment on above: Order Comment: Speci men Type: ARTERIAL BLOOD SPECIMENOrdering Facility: [facility] Address: [address] [place] [address] Performed By: #### A LLBG ####[facility] LABCLIA [id number] [place] [id number] [place] Hematocrit (Bld) [Volume fraction] 27.9 % Low 36.0-46.0 [facility] Comment on above: Order Comment: Speci men Type: ARTERIAL BLOOD SPECIMENOrdering Facility: [facility] Address: [address] [place] [address] Performed By: #### A LLBG ####[facility] LABCLIA [id number] [place] [id number] [place] Hemoglobin (Bld) [Mass/Vol] 9.0 g/dL Low 11.5-15.5 [facility] Comment on above: Order Comment: Speci men Type: ARTERIAL BLOOD SPECIMENOrdering Facility: [facility] Address: [address] [place] [address] Performed By: #### A LLBG ####[facility] LABCLIA [id number] [place] [address] [place] Lactate [Moles/Vol] 5.1 mmol/L High 0.5-2.2 [facility] Comment on above: Order Comment: Speci men Type: ARTERIAL BLOOD SPECIMENOrdering Facility: [facility] Address: [address] [place] [address] Performed By: #### A LLBG ####[facility] LABIA [id number] [place] [address] [place] LITERS 2 Liters/min Normal [facility] Comment on above: Order Comment: Speci men Type: ARTERIAL BLOOD SPECIMENOrdering Facility: [facility] Address: [address] [place] [address] Performed By: #### A LLBG ####[facility] LABCLIA [id number] [address] [place] Methemoglobin (Bld) [Mass fraction] 1.0 % Normal 0.0-1.5 [facility] Comment on above: Order Comment: Speci men Type: ARTERIAL BLOOD SPECIMENOrdering Facility: [facility] Address: [address] [place] [address] Performed By: #### A LLBG ####[facility] LABIA [id number] [place] [address] [place] O2 THERAPY NC = Nasal Cannula Normal [facility] Comment on above: Order Comment: Speci men Type: ARTERIAL BLOOD SPECIMENOrdering Facility: [facility] Address: [address], [place] [address] Performed By: #### A LLBG ####[facility] LABCLIA [id number] [address] [address] [place] Oxygen (Bld) [Partial pressure] 110 mm Hg High 85-95 [facility] Comment on above: Order Comment: Speci men Type: ARTERIAL BLOOD SPECIMENOrdering Facility: [facility] Address: [address] [place] [address] Performed By: #### A LLBG ####[facility] LABCLIA [id number] [address] [address] [place] Oxygen adjusted to patient's actual temperature (Bld) [Partial pressure] 106 mmHg High 85-95 [facility] Comment on above: Order Comment: Speci men Type: ARTERIAL BLOOD SPECIMENOrdering Facility: [facility] Address: [address] [place] [address] Performed By: #### A LLBG ####[facility] LABIA [id number] [place] [id number] [place] Oxyhemoglobin (BldA) [Mass fraction] 96 % Normal 95-98 [facility] Comment on above: Order Comment: Speci men Type: ARTERIAL BLOOD SPECIMENOrdering Facility: [facility] Address: [address] [place], [place] [id number] Performed By: #### A LLBG ####[facility] LABIA [id number] [place] [id number] [place] pH (Bld) 7.33 [pH] Low 7.35-7.45 [facility] Comment on above: Order Comment: Speci men Type: ARTERIAL BLOOD SPECIMENOrdering Facility: [facility] Address: [address] [place], [place] [id number] Performed By: #### A LLBG ####[facility] LABCLIA [id number] [address] [address] [place] pH adjusted to patient's actual temperature (Bld) 7.34 Low 7.35-7.45 [facility] Comment on above: Order Comment: Speci men Type: ARTERIAL BLOOD SPECIMENOrdering Facility: [facility] Address: [address] [place] [address] Performed By: #### A LLBG ####[facility] LABCLIA [id number] [place] [address] [place] Potassium [Moles/Vol] 4.3 mmol/L Normal 3.5-5.0 [facility] Comment on above: Order Comment: Speci men Type: ARTERIAL BLOOD SPECIMENOrdering Facility: [facility] Address: [address] [place] [address] Performed By: #### A LLBG ####[facility] LABCLIA [id number] [place] [address] [place] Sodium [Moles/Vol] 139 mmol/L Normal 136-144 [facility] Comment on above: Order Comment: Speci men Type: ARTERIAL BLOOD SPECIMENOrdering Facility: [facility] Address: [address] [place] [address] Performed By: #### A LLBG ####[facility] LABCLIA [id number] [place] [address] [place] Base deficit (BldA) [Moles/Vol] -7 mmol/L Low -2-0 [facility] Comment on above: Order Comment: Speci men Type: ARTERIAL BLOOD SPECIMENOrdering Facility: [facility] Address: [address] [place] [address] Performed By: #### A LLBG ####[facility] LABCLIA [id number] [place] [address] [place] Body temperature 97.52 [degF] Normal [facility] Comment on above: Order Comment: Speci men Type: ARTERIAL BLOOD SPECIMENOrdering Facility: [facility] Address: [address] [place] [address] Performed By: #### A LLBG ####[facility] LABCLIA [id number] [place] [address] [place] Calcium.ionized (Bld) [Mass/Vol] 1.17 mmol/L Normal 1.08-1.30 [facility] Comment on above: Order Comment: Speci men Type: ARTERIAL BLOOD SPECIMENOrdering Facility: [facility] Address: [address] [place] [address] Performed By: #### A LLBG ####[facility] LABIA [id number] [place] [address] [place] Calcium.ionized adjusted to pH 7.4 (BldA) [Moles/Vol] 1.13 mmol/L Normal 1.08-1.30 [facility] Comment on above: Order Comment: Speci men Type: ARTERIAL BLOOD SPECIMENOrdering Facility: [facility] Address: [address] [place] [address] Performed By: #### A LLBG ####[facility] [id number] [place] [address] [place] Carboxyhemoglobin (BldA) [Mass fraction] 1.6 % Normal 0.0-2.0 [facility] Comment on above: Order Comment: Speci men Type: ARTERIAL BLOOD SPECIMENOrdering Facility: [facility] Address: [address] [place] [address] Result Comment: Carb oxyhemoglobin Reference Range for Smokers: 2.0-8.0% Performed By: #### A LLBG ####[facility] LABIA [id number] [place] [address] [place] CO2 (Bld) [Partial pressure] 33 mm Hg Low 36-46 [facility] Comment on above: Order Comment: Speci men Type: ARTERIAL BLOOD SPECIMENOrdering Facility: [facility] Address: [address] [place] [address] Performed By: #### A LLBG ####[facility] LABIA [id number] [place] [address] [place] CO2 adjusted to patient's actual temperature (Bld) [Partial pressure] 32 mmHg Low 36-46 [facility] Comment on above: Order Comment: Speci men Type: ARTERIAL BLOOD SPECIMENOrdering Facility: [facility] Address: [address] [place] [address] Performed By: #### A LLBG ####[facility] LABCLIA [id number] [place] [address] [place] Glucose [Mass/Vol] 206 mg/dL High 60-105 [facility] Comment on above: Order Comment: Speci men Type: ARTERIAL BLOOD SPECIMENOrdering Facility: [facility] Address: [address] [place] [address] Performed By: #### A LLBG ####[facility] LABCLIA [id number] [place] [address] [place] HCO3 (Bld) [Moles/Vol] 17 mmol/L Low 22-26 [facility] Comment on above: Order Comment: Speci men Type: ARTERIAL BLOOD SPECIMENOrdering Facility: [facility] Address: [address] [place] [address] Performed By: #### A LLBG ####[facility] LABCLIA [id number] [place] [id number] [place] Hematocrit (Bld) [Volume fraction] 27.6 % Low 36.0-46.0 [facility] Comment on above: Order Comment: Speci men Type: ARTERIAL BLOOD SPECIMENOrdering Facility: [facility] Address: [address] [place] [address] Performed By: #### A LLBG ####[facility] LABCLIA [id number] [place] [id number] [place] Hemoglobin (Bld) [Mass/Vol] 8.9 g/dL Low 11.5-15.5 [facility] Comment on above: Order Comment: Speci men Type: ARTERIAL BLOOD SPECIMENOrdering Facility: [facility] Address: [address] [place] [address] Performed By: #### A LLBG ####[facility] LABCLIA [id number] [place] [id number] [place] Lactate [Moles/Vol] 5.8 mmol/L High 0.5-2.2 [facility] Comment on above: Order Comment: Speci men Type: ARTERIAL BLOOD SPECIMENOrdering Facility: [facility] Address: [address] [place] [address] Performed By: #### A LLBG ####[facility] LABCLIA [id number] [place] [address] [place] LITERS 2 Liters/min Normal [facility] Comment on above: Order Comment: Speci men Type: ARTERIAL BLOOD SPECIMENOrdering Facility: [facility] Address: [address] [place] [address] Performed By: #### A LLBG ####[facility] LABCLIA [id number] [place] [address] [place] Methemoglobin (Bld) [Mass fraction] 0.7 % Normal 0.0-1.5 [facility] Comment on above: Order Comment: Speci men Type: ARTERIAL BLOOD SPECIMENOrdering Facility: [facility] Address: [address] [place] [address] Performed By: #### A LLBG ####[facility] LABCLIA [id number] [place] [id number] [place] O2 THERAPY NC = Nasal Cannula Normal [facility] Comment on above: Order Comment: Speci men Type: ARTERIAL BLOOD SPECIMENOrdering Facility: [facility] Address: [address] [place] [address] Performed By: #### A LLBG ####[facility] LABCLIA [id number] [place] [id number] [place] Oxygen (Bld) [Partial pressure] 127 mm Hg High 85-95 [facility] Comment on above: Order Comment: Speci men Type: ARTERIAL BLOOD SPECIMENOrdering Facility: [facility] Address: [address] [place] [address] Performed By: #### A LLBG ####[facility] LABCLIA [id number] [address] [place] [address] [place] Oxygen adjusted to patient's actual temperature (Bld) [Partial pressure] 124 mmHg High 85-95 [facility] Comment on above: Order Comment: Speci men Type: ARTERIAL BLOOD SPECIMENOrdering Facility: [facility] Address: [address] [place] [address] Performed By: #### A LLBG ####[facility] LABCLIA [id number] [address] [address] [place] Oxyhemoglobin (BldA) [Mass fraction] 97 % Normal 95-98 [facility] Comment on above: Order Comment: Speci men Type: ARTERIAL BLOOD SPECIMENOrdering Facility: [facility] Address: [address] [place] [address] Performed By: #### A LLBG ####[facility] LABCLIA [id number] [address] [address] [place] pH (Bld) 7.33 [pH] Low 7.35-7.45 [facility] Comment on above: Order Comment: Speci men Type: ARTERIAL BLOOD SPECIMENOrdering Facility: [facility] Address: [address] [place] [address] Performed By: #### A LLBG ####[facility] LABCLIA [id number] [address] [address] [place] pH adjusted to patient's actual temperature (Bld) 7.34 Low 7.35-7.45 [facility] Comment on above: Order Comment: Speci men Type: ARTERIAL BLOOD SPECIMENOrdering Facility: [facility] Address: [address] [place] [address] Performed By: #### A LLBG ####[facility] LABCLIA [id number] [address], [place] [address] [place] Potassium [Moles/Vol] 4.1 mmol/L Normal 3.5-5.0 [facility] Comment on above: Order Comment: Speci men Type: ARTERIAL BLOOD SPECIMENOrdering Facility: [facility] Address: [address] [place] [address] Performed By: #### A LLBG ####[facility] LABCLIA [id number] [address], [facility] [place] Sodium [Moles/Vol] 140 mmol/L Normal 136-144 [facility] Comment on above: Order Comment: Speci men Type: ARTERIAL BLOOD SPECIMENOrdering Facility: [facility] Address: [address] [place] [address] Performed By: #### A LLBG ####[facility] LABCLIA [id number] [address], [facility] [place] ARTERIAL BLOOD GASES WITH IO NIZED MAGNESIUMon 12-12-2024 Base deficit (BldA) [Moles/Vol] -4 mmol/L Low -2-0 [facility] Comment on above: Order Comment: Speci men Type: ARTERIAL BLOOD SPECIMENOrdering Facility: [facility] Address: [address] [place] [address] Performed By: #### A LLMG ####[facility]CLIA [id number] [address], [facility] [place] Calcium.ionized (Bld) [Mass/Vol] 1.14 mmol/L Normal 1.08-1.30 [facility] Comment on above: Order Comment: Speci men Type: ARTERIAL BLOOD SPECIMENOrdering Facility: [facility] Address: [address] [place] [address] Performed By: #### A LLMG ####[facility]CLIA [id number] [place] [id number] [place] Calcium.ionized adjusted to pH 7.4 (BldA) [Moles/Vol] 1.12 mmol/L Normal 1.08-1.30 [facility] Comment on above: Order Comment: Speci men Type: ARTERIAL BLOOD SPECIMENOrdering Facility: [facility] Address: [address] [place] [address] Performed By: #### A LLMG ####[facility]CLIA [id number] [place] [address] [place] Carboxyhemoglobin (BldA) [Mass fraction] 2.0 % Normal 0.0-2.0 [facility] Comment on above: Order Comment: Speci men Type: ARTERIAL BLOOD SPECIMENOrdering Facility: [facility] Address: [address] [place] [address] Result Comment: Carb oxyhemoglobin Reference Range for Smokers: 2.0-8.0% Performed By: #### A LLMG ####[facility]CL[facility] [id number] [place] [address] [place] CO2 (Bld) [Partial pressure] 37 mm Hg Normal 36-46 [facility] Comment on above: Order Comment: Speci men Type: ARTERIAL BLOOD SPECIMENOrdering Facility: [facility] Address: [address] [place] [address] Performed By: #### A LLMG ####[facility]CLIA [id number] [place] [address] [place] CO2 adjusted to patient's actual temperature (Bld) [Partial pressure] 37 mmHg Normal 36-46 [facility] Comment on above: Order Comment: Speci men Type: ARTERIAL BLOOD SPECIMENOrdering Facility: [facility] Address: [address] [place] [address] Performed By: #### A LLMG ####[facility]CL[facility] [id number] [place] [address] [place] Glucose [Mass/Vol] 148 mg/dL High 60-105 [facility] Comment on above: Order Comment: Speci men Type: ARTERIAL BLOOD SPECIMENOrdering Facility: [facility] Address: [address] [place] [address] Performed By: #### A LLMG ####[facility]CLIA [id number] [place] [address] [place] HCO3 (Bld) [Moles/Vol] 20 mmol/L Low 22-26 [facility] Comment on above: Order Comment: Speci men Type: ARTERIAL BLOOD SPECIMENOrdering Facility: [facility] Address: [address] [place] [address] Performed By: #### A LLMG ####[facility]CLIA [id number] [place] [address] [place] Hematocrit (Bld) [Volume fraction] 24.9 % Low 36.0-46.0 [facility] Comment on above: Order Comment: Speci men Type: ARTERIAL BLOOD SPECIMENOrdering Facility: [facility] Address: [address] [place] [address] Performed By: #### A LLMG ####[facility]CLIA [id number] [place] [address] [place] Hemoglobin (Bld) [Mass/Vol] 8.0 g/dL Low 11.5-15.5 [facility] Comment on above: Order Comment: Speci men Type: ARTERIAL BLOOD SPECIMENOrdering Facility: [facility] Address: [address] [place] [address] Performed By: #### A LLMG ####[facility] LABCLIA [id number] [place] [address] [place] Lactate [Moles/Vol] 3.0 mmol/L High 0.5-2.2 [facility] Comment on above: Order Comment: Speci men Type: ARTERIAL BLOOD SPECIMENOrdering Facility: [facility] Address: [address] [place] [address] Performed By: #### A LLMG ####[facility] LABCLIA [id number] [place] [address] [place] Magnesium [Moles/Vol] 0.55 mmol/L Normal 0.45-0.60 [facility] Comment on above: Order Comment: Speci men Type: ARTERIAL BLOOD SPECIMENOrdering Facility: [facility] Address: [address] [place] [address] Performed By: #### A LLMG ####[facility] LABCLIA [id number] [place] [address] [place] Methemoglobin (Bld) [Mass fraction] 1.2 % Normal 0.0-1.5 [facility] Comment on above: Order Comment: Speci men Type: ARTERIAL BLOOD SPECIMENOrdering Facility: [facility] Address: [address] [place] [address] Performed By: #### A LLMG ####[facility] LABCLIA [id number] [place] [id number] [place] Oxygen (Bld) [Partial pressure] 144 mm Hg High 85-95 [facility] Comment on above: Order Comment: Speci men Type: ARTERIAL BLOOD SPECIMENOrdering Facility: [facility] Address: [address] [place] [address] Performed By: #### A LLMG ####[facility] LABCLIA [id number] [place] [id number] [place] Oxygen adjusted to patient's actual temperature (Bld) [Partial pressure] 144 mmHg High 85-95 [facility] Comment on above: Order Comment: Speci men Type: ARTERIAL BLOOD SPECIMENOrdering Facility: [facility] Address: [address] [place] [address] Performed By: #### A LLMG ####[facility] LABCLIA [id number] [place] [id number] [place] Oxyhemoglobin (BldA) [Mass fraction] 96 % Normal 95-98 [facility] Comment on above: Order Comment: Speci men Type: ARTERIAL BLOOD SPECIMENOrdering Facility: [facility] Address: [address] [place] [address] Performed By: #### A LLMG ####[facility] LABCLIA [id number] [place] [address] [place] pH (Bld) 7.36 [pH] Normal 7.35-7.45 [facility] Comment on above: Order Comment: Speci men Type: ARTERIAL BLOOD SPECIMENOrdering Facility: [facility] Address: [address] [place] [address] Performed By: #### A LLMG ####[facility] LABIA [id number] [place] [address] [place] pH adjusted to patient's actual temperature (Bld) 7.36 Normal 7.35-7.45 [facility] Comment on above: Order Comment: Speci men Type: ARTERIAL BLOOD SPECIMENOrdering Facility: [facility] Address: [address] [place] [address] Performed By: #### A LLMG ####[facility] LABIA [id number] [place] [address] [place] Potassium [Moles/Vol] 4.3 mmol/L Normal 3.5-5.0 [facility] Comment on above: Order Comment: Speci men Type: ARTERIAL BLOOD SPECIMENOrdering Facility: [facility] Address: [address] [place] [address] Performed By: #### A LLMG ####[facility] LABIA [id number] [place] [address] [place] Sodium [Moles/Vol] 140 mmol/L Normal 136-144 [facility] Comment on above: Order Comment: Speci men Type: ARTERIAL BLOOD SPECIMENOrdering Facility: [facility] Address: [address] [place] [address] Performed By: #### A LLMG ####[facility] LABIA [id number] [place] [address] [place] Base deficit (BldA) [Moles/Vol] -4 mmol/L Low -2-0 [facility] Comment on above: Order Comment: Speci men Type: ARTERIAL BLOOD SPECIMENOrdering Facility: [facility] Address: [address] [place] [address] Performed By: #### A LLMG ####[facility] LABIA [id number] [place] [address] [place] Calcium.ionized (Bld) [Mass/Vol] 1.12 mmol/L Normal 1.08-1.30 [facility] Comment on above: Order Comment: Speci men Type: ARTERIAL BLOOD SPECIMENOrdering Facility: [facility] Address: [address] [place] [address] Performed By: #### A LLMG ####[facility] [id number] [place] [address] [place] Calcium.ionized adjusted to pH 7.4 (BldA) [Moles/Vol] 1.10 mmol/L Normal 1.08-1.30 [facility] Comment on above: Order Comment: Speci men Type: ARTERIAL BLOOD SPECIMENOrdering Facility: [facility] Address: [address] [place] [address] Performed By: #### A LLMG ####[facility] [id number] [place] [address] [place] Carboxyhemoglobin (BldA) [Mass fraction] 2.0 % Normal 0.0-2.0 [facility] Comment on above: Order Comment: Speci men Type: ARTERIAL BLOOD SPECIMENOrdering Facility: [facility] Address: [address] [place] [address] Result Comment: Carb oxyhemoglobin Reference Range for Smokers: 2.0-8.0% Performed By: #### A LLMG ####[facility] LABCLIA [id number] [address] [address] [place] CO2 (Bld) [Partial pressure] 37 mm Hg Normal 36-46 [facility] Comment on above: Order Comment: Speci men Type: ARTERIAL BLOOD SPECIMENOrdering Facility: [facility] Address: [address] [place] [address] Performed By: #### A LLMG ####[facility] LABCLIA [id number] [place] [address] [place] CO2 adjusted to patient's actual temperature (Bld) [Partial pressure] 37 mmHg Normal 36-46 [facility] Comment on above: Order Comment: Speci men Type: ARTERIAL BLOOD SPECIMENOrdering Facility: [facility] Address: [address] [place] [address] Performed By: #### A LLMG ####[facility] LABCLIA [id number] [place] [address] [place] Glucose [Mass/Vol] 145 mg/dL High 60-105 [facility] Comment on above: Order Comment: Speci men Type: ARTERIAL BLOOD SPECIMENOrdering Facility: [facility] Address: [address] [place] [address] Performed By: #### A LLMG ####[facility] LABCLIA [id number] [place] [id number] [place] HCO3 (Bld) [Moles/Vol] 21 mmol/L Low 22-26 [facility] Comment on above: Order Comment: Speci men Type: ARTERIAL BLOOD SPECIMENOrdering Facility: [facility] Address: [address] [place], [place] [id number] Performed By: #### A LLMG ####[facility] LABCLIA [id number] [place] [id number] [place] Hematocrit (Bld) [Volume fraction] 24.5 % Low 36.0-46.0 [facility] Comment on above: Order Comment: Speci men Type: ARTERIAL BLOOD SPECIMENOrdering Facility: [facility] Address: [address] [place] [address] Performed By: #### A LLMG ####[facility] LABCLIA [id number] [place] [address] [place] Hemoglobin (Bld) [Mass/Vol] 7.9 g/dL Low 11.5-15.5 [facility] Comment on above: Order Comment: Speci men Type: ARTERIAL BLOOD SPECIMENOrdering Facility: [facility] Address: [address] [place] [address] Performed By: #### A LLMG ####[facility] LABCLIA [id number] [place] [address] [place] Lactate [Moles/Vol] 3.0 mmol/L High 0.5-2.2 [facility] Comment on above: Order Comment: Speci men Type: ARTERIAL BLOOD SPECIMENOrdering Facility: [facility] Address: [address] [place] [address] Performed By: #### A LLMG ####[facility] LABCLIA [id number] [place] [address] [place] Magnesium [Moles/Vol] 0.55 mmol/L Normal 0.45-0.60 [facility] Comment on above: Order Comment: Speci men Type: ARTERIAL BLOOD SPECIMENOrdering Facility: [facility] Address: [address] [place] [address] Performed By: #### A LLMG ####[facility] LABCLIA [id number] [place] [address] [place] Methemoglobin (Bld) [Mass fraction] 0.7 % Normal 0.0-1.5 [facility] Comment on above: Order Comment: Speci men Type: ARTERIAL BLOOD SPECIMENOrdering Facility: [facility] Address: [address] [place] [address] Performed By: #### A LLMG ####[facility] LABCLIA [id number] [address] [address] [place] Oxygen (Bld) [Partial pressure] 183 mm Hg High 85-95 [facility] Comment on above: Order Comment: Speci men Type: ARTERIAL BLOOD SPECIMENOrdering Facility: [facility] Address: [address] [place] [address] Performed By: #### A LLMG ####[facility] LABCLIA [id number] [place] [id number] [place] Oxygen adjusted to patient's actual temperature (Bld) [Partial pressure] 183 mmHg High 85-95 [facility] Comment on above: Order Comment: Speci men Type: ARTERIAL BLOOD SPECIMENOrdering Facility: [facility] Address: [address] [place] [address] Performed By: #### A LLMG ####[facility] LABCLIA [id number] [place] [phone] [place] Oxyhemoglobin (BldA) [Mass fraction] 97 % Normal 95-98 [facility] Comment on above: Order Comment: Speci men Type: ARTERIAL BLOOD SPECIMENOrdering Facility: [facility] Address: [address] [place] [address] Performed By: #### A LLMG ####[facility] LABCLIA [id number] [place] [id number] [place] pH (Bld) 7.36 [pH] Normal 7.35-7.45 [facility] Comment on above: Order Comment: Speci men Type: ARTERIAL BLOOD SPECIMENOrdering Facility: [facility] Address: [address] [place] [address] Performed By: #### A LLMG ####[facility] LABCLIA [id number] [place] [id number] [place] pH adjusted to patient's actual temperature (Bld) 7.36 Normal 7.35-7.45 [facility] Comment on above: Order Comment: Speci men Type: ARTERIAL BLOOD SPECIMENOrdering Facility: [facility] Address: [address] [place] [address] Performed By: #### A LLMG ####[facility] LABCLIA [id number] [place] [address] [place] Potassium [Moles/Vol] 4.3 mmol/L Normal 3.5-5.0 [facility] Comment on above: Order Comment: Speci men Type: ARTERIAL BLOOD SPECIMENOrdering Facility: [facility] Address: [address] [place] [address] Performed By: #### A LLMG ####[facility] LABCLIA [id number] [place] [address] [place] Sodium [Moles/Vol] 139 mmol/L Normal 136-144 [facility] Comment on above: Order Comment: Speci men Type: ARTERIAL BLOOD SPECIMENOrdering Facility: [facility] Address: [address] [place] [address] Performed By: #### A LLMG ####[facility] LABCLIA [id number] [place] [address] [place] Base deficit (BldA) [Moles/Vol] -5 mmol/L Low -2-0 [facility] Comment on above: Order Comment: Speci men Type: ARTERIAL BLOOD SPECIMENOrdering Facility: [facility] Address: [address] [place] [address] Performed By: #### A LLMG ####[facility] LABCLIA [id number] [place] [id number] [place] Calcium.ionized (Bld) [Mass/Vol] 1.20 mmol/L Normal 1.08-1.30 [facility] Comment on above: Order Comment: Speci men Type: ARTERIAL BLOOD SPECIMENOrdering Facility: [facility] Address: [address] [place] [address] Performed By: #### A LLMG ####[facility] LABIA [id number] [place] [address] [place] Calcium.ionized adjusted to pH 7.4 (BldA) [Moles/Vol] 1.17 mmol/L Normal 1.08-1.30 [facility] Comment on above: Order Comment: Speci men Type: ARTERIAL BLOOD SPECIMENOrdering Facility: [facility] Address: [address] [place] [address] Performed By: #### A LLMG ####[facility] LABIA [id number] [place] [address] [place] Carboxyhemoglobin (BldA) [Mass fraction] 2.1 % High 0.0-2.0 [facility] Comment on above: Order Comment: Speci men Type: ARTERIAL BLOOD SPECIMENOrdering Facility: [facility] Address: [address] [place] [address] Result Comment: Carb oxyhemoglobin Reference Range for Smokers: 2.0-8.0% Performed By: #### A LLMG ####[facility] LABIA [id number] [place] [address] [place] CO2 (Bld) [Partial pressure] 37 mm Hg Normal 36-46 [facility] Comment on above: Order Comment: Speci men Type: ARTERIAL BLOOD SPECIMENOrdering Facility: [facility] Address: [address] [place] [address] Performed By: #### A LLMG ####[facility] LABIA [id number] [place] [address] [place] CO2 adjusted to patient's actual temperature (Bld) [Partial pressure] 37 mmHg Normal 36-46 [facility] Comment on above: Order Comment: Speci men Type: ARTERIAL BLOOD SPECIMENOrdering Facility: [facility] Address: [address] [place] [address] Performed By: #### A LLMG ####[facility] LABIA [id number] [place] [id number] [place] Glucose [Mass/Vol] 149 mg/dL High 60-105 [facility] Comment on above: Order Comment: Speci men Type: ARTERIAL BLOOD SPECIMENOrdering Facility: [facility] Address: [address] [place] [address] Performed By: #### A LLMG ####[facility] LABCLIA [id number] [place] [address] [place] HCO3 (Bld) [Moles/Vol] 19 mmol/L Low 22-26 [facility] Comment on above: Order Comment: Speci men Type: ARTERIAL BLOOD SPECIMENOrdering Facility: [facility] Address: [address] [place] [address] Performed By: #### A LLMG ####[facility] LABCLIA [id number] [place] [address] [place] Hematocrit (Bld) [Volume fraction] 27.8 % Low 36.0-46.0 [facility] Comment on above: Order Comment: Speci men Type: ARTERIAL BLOOD SPECIMENOrdering Facility: [facility] Address: [address] [place] [address] Performed By: #### A LLMG ####[facility] LABCLIA [id number] [place] [address] [place] Hemoglobin (Bld) [Mass/Vol] 9.0 g/dL Low 11.5-15.5 [facility] Comment on above: Order Comment: Speci men Type: ARTERIAL BLOOD SPECIMENOrdering Facility: [facility] Address: [address] [place] [address] Performed By: #### A LLMG ####[facility] LABCLIA [id number] [place] [address] [place] Lactate [Moles/Vol] 3.3 mmol/L High 0.5-2.2 [facility] Comment on above: Order Comment: Speci men Type: ARTERIAL BLOOD SPECIMENOrdering Facility: [facility] Address: [address] [place] [address] Performed By: #### A LLMG ####[facility] LABIA [id number] [place] [address] [place] Magnesium [Moles/Vol] 0.63 mmol/L High 0.45-0.60 [facility] Comment on above: Order Comment: Speci men Type: ARTERIAL BLOOD SPECIMENOrdering Facility: [facility] Address: [address] [place] [address] Performed By: #### A LLMG ####[facility] LABIA [id number] [place] [address] [place] Methemoglobin (Bld) [Mass fraction] 0.4 % Normal 0.0-1.5 [facility] Comment on above: Order Comment: Speci men Type: ARTERIAL BLOOD SPECIMENOrdering Facility: [facility] Address: [address] [place] [address] Performed By: #### A LLMG ####[facility] LABIA [id number] [place] [id number] [place] Oxygen (Bld) [Partial pressure] 185 mm Hg High 85-95 [facility] Comment on above: Order Comment: Speci men Type: ARTERIAL BLOOD SPECIMENOrdering Facility: [facility] Address: [address] [place] [address] Performed By: #### A LLMG ####[facility] LABCLIA [id number] [place] [id number] [place] Oxygen adjusted to patient's actual temperature (Bld) [Partial pressure] 185 mmHg High 85-95 [facility] Comment on above: Order Comment: Speci men Type: ARTERIAL BLOOD SPECIMENOrdering Facility: [facility] Address: [address] [place] [address] Performed By: #### A LLMG ####[facility] LABCLIA [id number] [place] [address] [place] Oxyhemoglobin (BldA) [Mass fraction] 97 % Normal 95-98 [facility] Comment on above: Order Comment: Speci men Type: ARTERIAL BLOOD SPECIMENOrdering Facility: [facility] Address: [address] [place] [address] Performed By: #### A LLMG ####[facility] LABCLIA [id number] [place] [address] [place] pH (Bld) 7.35 [pH] Normal 7.35-7.45 [facility] Comment on above: Order Comment: Speci men Type: ARTERIAL BLOOD SPECIMENOrdering Facility: [facility] Address: [address] [place] [address] Performed By: #### A LLMG ####[facility] LABCLIA [id number] [place] [address] [place] pH adjusted to patient's actual temperature (Bld) 7.35 Normal 7.35-7.45 [facility] Comment on above: Order Comment: Speci men Type: ARTERIAL BLOOD SPECIMENOrdering Facility: [facility] Address: [address] [place] [address] Performed By: #### A LLMG ####[facility] LABCLIA [id number] [place] [id number] [place] Potassium [Moles/Vol] 4.7 mmol/L Normal 3.5-5.0 [facility] Comment on above: Order Comment: Speci men Type: ARTERIAL BLOOD SPECIMENOrdering Facility: [facility] Address: [address] [place] [address] Performed By: #### A LLMG ####[facility] LABCLIA [id number] [place] [id number] [place] Sodium [Moles/Vol] 138 mmol/L Normal 136-144 [facility] Comment on above: Order Comment: Speci men Type: ARTERIAL BLOOD SPECIMENOrdering Facility: [facility] Address: [address] [place] [address] Performed By: #### A LLMG ####[facility] [id number] [place] [address] [place] Base deficit (BldA) [Moles/Vol] -4 mmol/L Low -2-0 [facility] Comment on above: Order Comment: Speci men Type: ARTERIAL BLOOD SPECIMENOrdering Facility: [facility] Address: [address] [place] [address] Performed By: #### A LLMG ####[facility] [id number] [place] [address] [place] Calcium.ionized (Bld) [Mass/Vol] 1.23 mmol/L Normal 1.08-1.30 [facility] Comment on above: Order Comment: Speci men Type: ARTERIAL BLOOD SPECIMENOrdering Facility: [facility] Address: [address] [place] [address] Performed By: #### A LLMG ####[facility] [id number] [place] [address] [place] Calcium.ionized adjusted to pH 7.4 (BldA) [Moles/Vol] 1.20 mmol/L Normal 1.08-1.30 [facility] Comment on above: Order Comment: Speci men Type: ARTERIAL BLOOD SPECIMENOrdering Facility: [facility] Address: [address] [place] [address] Performed By: #### A LLMG ####[facility] [id number] [place] [address] [place] Carboxyhemoglobin (BldA) [Mass fraction] 2.1 % High 0.0-2.0 [facility] Comment on above: Order Comment: Speci men Type: ARTERIAL BLOOD SPECIMENOrdering Facility: [facility] Address: [address] [place] [address] Result Comment: Carb oxyhemoglobin Reference Range for Smokers: 2.0-8.0% Performed By: #### A LLMG ####[facility] LABCLIA [id number] [place] [address] [place] CO2 (Bld) [Partial pressure] 37 mm Hg Normal 36-46 [facility] Comment on above: Order Comment: Speci men Type: ARTERIAL BLOOD SPECIMENOrdering Facility: [facility] Address: [address] [place] [address] Performed By: #### A LLMG ####[facility] LABCLIA [id number] [place] [address] [place] CO2 adjusted to patient's actual temperature (Bld) [Partial pressure] 37 mmHg Normal 36-46 [facility] Comment on above: Order Comment: Speci men Type: ARTERIAL BLOOD SPECIMENOrdering Facility: [facility] Address: [address] [place] [address] Performed By: #### A LLMG ####[facility] LABCLIA [id number] [place] [address] [place] Glucose [Mass/Vol] 154 mg/dL High 60-105 [facility] Comment on above: Order Comment: Speci men Type: ARTERIAL BLOOD SPECIMENOrdering Facility: [facility] Address: [address] [place] [address] Performed By: #### A LLMG ####[facility] LABCLIA [id number] [place] [address] [place] HCO3 (Bld) [Moles/Vol] 20 mmol/L Low 22-26 [facility] Comment on above: Order Comment: Speci men Type: ARTERIAL BLOOD SPECIMENOrdering Facility: [facility] Address: [address] [place] [address] Performed By: #### A LLMG ####[facility] LABCLIA [id number] [place] [address] [place] Hematocrit (Bld) [Volume fraction] 29.2 % Low 36.0-46.0 [facility] Comment on above: Order Comment: Speci men Type: ARTERIAL BLOOD SPECIMENOrdering Facility: [facility] Address: [address] [place] [address] Performed By: #### A LLMG ####[facility] LABIA [id number] [place] [address] [place] Hemoglobin (Bld) [Mass/Vol] 9.4 g/dL Low 11.5-15.5 [facility] Comment on above: Order Comment: Speci men Type: ARTERIAL BLOOD SPECIMENOrdering Facility: [facility] Address: [address] [place] [address] Performed By: #### A LLMG ####[facility] [id number] [place] [address] [place] Lactate [Moles/Vol] 2.2 mmol/L Normal 0.5-2.2 [facility] Comment on above: Order Comment: Speci men Type: ARTERIAL BLOOD SPECIMENOrdering Facility: [facility] Address: [address] [place] [address] Performed By: #### A LLMG ####[facility] LABIA [id number] [place] [address] [place] Magnesium [Moles/Vol] 0.67 mmol/L High 0.45-0.60 [facility] Comment on above: Order Comment: Speci men Type: ARTERIAL BLOOD SPECIMENOrdering Facility: [facility] Address: [address] [place] [address] Performed By: #### A LLMG ####[facility] [id number] [place] [address] [place] Methemoglobin (Bld) [Mass fraction] 0.4 % Normal 0.0-1.5 [facility] Comment on above: Order Comment: Speci men Type: ARTERIAL BLOOD SPECIMENOrdering Facility: [facility] Address: [address] [place], [place] [id number] Performed By: #### A LLMG ####[facility] LABCLIA [id number] [address] [address] [place] Oxygen (Bld) [Partial pressure] 209 mm Hg High 85-95 [facility] Comment on above: Order Comment: Speci men Type: ARTERIAL BLOOD SPECIMENOrdering Facility: [facility] Address: [address] [place] [address] Performed By: #### A LLMG ####[facility] LABCLIA [id number] [place] [id number] [place] Oxygen adjusted to patient's actual temperature (Bld) [Partial pressure] 209 mmHg High 85-95 [facility] Comment on above: Order Comment: Speci men Type: ARTERIAL BLOOD SPECIMENOrdering Facility: [facility] Address: [address] [place] [address] Performed By: #### A LLMG ####[facility] LABCLIA [id number] [place] [address] [place] Oxyhemoglobin (BldA) [Mass fraction] 98 % Normal 95-98 [facility] Comment on above: Order Comment: Speci men Type: ARTERIAL BLOOD SPECIMENOrdering Facility: [facility] Address: [address] [place] [address] Performed By: #### A LLMG ####[facility] LABCLIA [id number] [place] [id number] [place] pH (Bld) 7.35 [pH] Normal 7.35-7.45 [facility] Comment on above: Order Comment: Speci men Type: ARTERIAL BLOOD SPECIMENOrdering Facility: [facility] Address: [address] [place] [address] Performed By: #### A LLMG ####[facility] LABCLIA [id number] [place] [id number] [place] pH adjusted to patient's actual temperature (Bld) 7.35 Normal 7.35-7.45 [facility] Comment on above: Order Comment: Speci men Type: ARTERIAL BLOOD SPECIMENOrdering Facility: [facility] Address: [address] [place] [address] Performed By: #### A LLMG ####[facility] LABCLIA [id number] [place] [address] [place] Potassium [Moles/Vol] 4.7 mmol/L Normal 3.5-5.0 [facility] Comment on above: Order Comment: Speci men Type: ARTERIAL BLOOD SPECIMENOrdering Facility: [facility] Address: [address] [place] [address] Performed By: #### A LLMG ####[facility] LABIA [id number] [place] [address] [place] Sodium [Moles/Vol] 136 mmol/L Normal 136-144 [facility] Comment on above: Order Comment: Speci men Type: ARTERIAL BLOOD SPECIMENOrdering Facility: [facility] Address: [address] [place] [address] Performed By: #### A LLMG ####[facility] LABIA [id number] [place] [address] [place] Base deficit (BldA) [Moles/Vol] -4 mmol/L Low -2-0 [facility] Comment on above: Order Comment: Speci men Type: ARTERIAL BLOOD SPECIMENOrdering Facility: [facility] Address: [address] [place] [address] Performed By: #### A LLMG ####[facility] LABIA [id number] [place] [address] [place] Calcium.ionized (Bld) [Mass/Vol] 1.28 mmol/L Normal 1.08-1.30 [facility] Comment on above: Order Comment: Speci men Type: ARTERIAL BLOOD SPECIMENOrdering Facility: [facility] Address: [address] [place] [address] Performed By: #### A LLMG ####[facility] LABCLIA [id number] [place] [address] [place] Calcium.ionized adjusted to pH 7.4 (BldA) [Moles/Vol] 1.22 mmol/L Normal 1.08-1.30 [facility] Comment on above: Order Comment: Speci men Type: ARTERIAL BLOOD SPECIMENOrdering Facility: [facility] Address: [address] [place] [address] Performed By: #### A LLMG ####[facility] LABCLIA [id number] [place] [address] [place] Carboxyhemoglobin (BldA) [Mass fraction] 1.9 % Normal 0.0-2.0 [facility] Comment on above: Order Comment: Speci men Type: ARTERIAL BLOOD SPECIMENOrdering Facility: [facility] Address: [address] [place] [address] Result Comment: Carb oxyhemoglobin Reference Range for Smokers: 2.0-8.0% Performed By: #### A LLMG ####[facility] LABCLIA [id number] [place] [address] [place] CO2 (Bld) [Partial pressure] 43 mm Hg Normal 36-46 [facility] Comment on above: Order Comment: Speci men Type: ARTERIAL BLOOD SPECIMENOrdering Facility: [facility] Address: [address] [place] [address] Performed By: #### A LLMG ####[facility] LABCLIA [id number] [place] [address] [place] CO2 adjusted to patient's actual temperature (Bld) [Partial pressure] 43 mmHg Normal 36-46 [facility] Comment on above: Order Comment: Speci men Type: ARTERIAL BLOOD SPECIMENOrdering Facility: [facility] Address: [address] [place] [address] Performed By: #### A LLMG ####[facility] LABCLIA [id number] [place] [id number] [place] Glucose [Mass/Vol] 109 mg/dL High 60-105 [facility] Comment on above: Order Comment: Speci men Type: ARTERIAL BLOOD SPECIMENOrdering Facility: [facility] Address: [address] [place] [address] Performed By: #### A LLMG ####[facility] LABCLIA [id number] [place] [address] [place] HCO3 (Bld) [Moles/Vol] 22 mmol/L Normal 22-26 [facility] Comment on above: Order Comment: Speci men Type: ARTERIAL BLOOD SPECIMENOrdering Facility: [facility] Address: [address] [place] [address] Performed By: #### A LLMG ####[facility] LABCLIA [id number] [place] [address] [place] Hematocrit (Bld) [Volume fraction] 27.5 % Low 36.0-46.0 [facility] Comment on above: Order Comment: Speci men Type: ARTERIAL BLOOD SPECIMENOrdering Facility: [facility] Address: [address] [place] [address] Performed By: #### A LLMG ####[facility] LABCLIA [id number] [place] [address] [place] Hemoglobin (Bld) [Mass/Vol] 8.9 g/dL Low 11.5-15.5 [facility] Comment on above: Order Comment: Speci men Type: ARTERIAL BLOOD SPECIMENOrdering Facility: [facility] Address: [address] [place] [address] Performed By: #### A LLMG ####[facility] LABCLIA [id number] [place] [id number] [place] Lactate [Moles/Vol] 1.5 mmol/L Normal 0.5-2.2 [facility] Comment on above: Order Comment: Speci men Type: ARTERIAL BLOOD SPECIMENOrdering Facility: [facility] Address: [address] [place] [address] Performed By: #### A LLMG ####[facility] LABIA [id number] [address] [address] [place] Magnesium [Moles/Vol] 0.67 mmol/L High 0.45-0.60 [facility] Comment on above: Order Comment: Speci men Type: ARTERIAL BLOOD SPECIMENOrdering Facility: [facility] Address: [address] [place] [address] Performed By: #### A LLMG ####[facility] LABIA [id number] [place] [id number] [place] Methemoglobin (Bld) [Mass fraction] 1.3 % Normal 0.0-1.5 [facility] Comment on above: Order Comment: Speci men Type: ARTERIAL BLOOD SPECIMENOrdering Facility: [facility] Address: [address] [place] [address] Performed By: #### A LLMG ####[facility] LABIA [id number] [place] [phone] [place] Oxygen (Bld) [Partial pressure] 178 mm Hg High 85-95 [facility] Comment on above: Order Comment: Speci men Type: ARTERIAL BLOOD SPECIMENOrdering Facility: [facility] Address: [address] [place] [address] Performed By: #### A LLMG ####[facility] LABIA [id number] [address] [address] [place] Oxygen adjusted to patient's actual temperature (Bld) [Partial pressure] 178 mmHg High 85-95 [facility] Comment on above: Order Comment: Speci men Type: ARTERIAL BLOOD SPECIMENOrdering Facility: [facility] Address: [address] [place], [place] [id number] Performed By: #### A LLMG ####[facility] LABCLIA [id number] [address] [address] [place] Oxyhemoglobin (BldA) [Mass fraction] 96 % Normal 95-98 [facility] Comment on above: Order Comment: Speci men Type: ARTERIAL BLOOD SPECIMENOrdering Facility: [facility] Address: [address] [place] [address] Performed By: #### A LLMG ####[facility] LABCLIA [id number] [place] [id number] [place] pH (Bld) 7.32 [pH] Low 7.35-7.45 [facility] Comment on above: Order Comment: Speci men Type: ARTERIAL BLOOD SPECIMENOrdering Facility: [facility] Address: [address] [place] [address] Performed By: #### A LLMG ####[facility] LABIA [id number] [place] [address] [place] pH adjusted to patient's actual temperature (Bld) 7.32 Low 7.35-7.45 [facility] Comment on above: Order Comment: Speci men Type: ARTERIAL BLOOD SPECIMENOrdering Facility: [facility] Address: [address] [place] [address] Performed By: #### A LLMG ####[facility] LABIA [id number] [place] [id number] [place] Potassium [Moles/Vol] 4.2 mmol/L Normal 3.5-5.0 [facility] Comment on above: Order Comment: Speci men Type: ARTERIAL BLOOD SPECIMENOrdering Facility: [facility] Address: [address] [place] [address] Performed By: #### A LLMG ####[facility] LABCLIA [id number] [place] [id number] [place] Sodium [Moles/Vol] 138 mmol/L Normal 136-144 [facility] Comment on above: Order Comment: Speci men Type: ARTERIAL BLOOD SPECIMENOrdering Facility: [facility] Address: [address] [place] [address] Performed By: #### A LLMG ####[facility] LABCLIA [id number] [facility] [id number] [address] [place] BRIEF OP NOTon 12-12-2024 BRIEF OP NOT Normal [facility] CASE MANAGEMon 12-12-2024 CASE MANAGEM Normal [facility] CBC panel Auto (Bld)on 12-12 Erythrocyte distribution width (RBC) [Ratio] 22.2 % High 11.5-15.0 [facility] Comment on above: Order Comment: Speci men Type: BLOOD SPECIMENOrdering Facility: [facility] Address: [address] [place] [address] Performed By: #### 5 8410-2 ####[facility] LABCLIA [id number] [address], [place] [address] [place] Hematocrit (Bld) [Volume fraction] 28.3 % Low 36.0-46.0 [facility] Comment on above: Order Comment: Speci men Type: BLOOD SPECIMENOrdering Facility: [facility] Address: [address] [place] [address] Performed By: #### 5 8410-2 ####[facility] LABCLIA [id number] [facility] [address] [place] [address] [place] Hemoglobin (Bld) [Mass/Vol] 8.6 g/dL Low 11.5-15.5 [facility] Comment on above: Order Comment: Speci men Type: BLOOD SPECIMENOrdering Facility: [facility] Address: [address] [place] [address] Performed By: #### 5 8410-2 ####[facility] LABCLIA [id number] [facility] [address] [place] [address] [place] MCH (RBC) [Entitic mass] 26.4 pg Normal 26.0-34.0 [facility] Comment on above: Order Comment: Speci men Type: BLOOD SPECIMENOrdering Facility: [facility] Address: [address] [place] [address] Performed By: #### 5 8410-2 ####[facility] LABIA [id number] [place] [address] [place] MCHC (RBC) [Mass/Vol] 30.4 g/dL Low 30.5-36.0 [facility] Comment on above: Order Comment: Speci men Type: BLOOD SPECIMENOrdering Facility: [facility] Address: [address] [place] [address] Performed By: #### 5 8410-2 ####[facility] [id number] [place] [address] [place] MCV (RBC) [Entitic vol] 86.8 fL Normal 80.0-100.0 [facility] Comment on above: Order Comment: Speci men Type: BLOOD SPECIMENOrdering Facility: [facility] Address: [address] [place] [address] Performed By: #### 5 8410-2 ####[facility] [id number] [place] [address] [place] Nucleated RBC (Bld) [#/Vol] 0.02 10*3/uL High <0.01 [facility] Comment on above: Order Comment: Speci men Type: BLOOD SPECIMENOrdering Facility: [facility] Address: [address] [place] [address] Performed By: #### 5 8410-2 ####[facility] [id number] [place] [address] [place] Platelet mean volume (Bld) [Entitic vol] 9.3 fL Normal 9.0-12.7 [facility] Comment on above: Order Comment: Speci men Type: BLOOD SPECIMENOrdering Facility: [facility] Address: [address] [place] [address] Performed By: #### 5 8410-2 ####[facility] LABCLIA [id number] [address] [address] [place] Platelets (Bld) [#/Vol] 292 10*3/uL Normal 150-400 [facility] Comment on above: Order Comment: Speci men Type: BLOOD SPECIMENOrdering Facility: [facility] Address: [address] [place] [address] Performed By: #### 5 8410-2 ####[facility] LABIA [id number] [place] [address] [place] RBC (Bld) [#/Vol] 3.26 10*6/uL Low 3.90-5.20 [facility] Comment on above: Order Comment: Speci men Type: BLOOD SPECIMENOrdering Facility: [facility] Address: [address] [place] [address] Performed By: #### 5 8410-2 ####[facility] LABIA [id number] [place] [id number] [place] WBC (Bld) [#/Vol] 6.93 10*3/uL Normal 3.70-11.00 [facility] Comment on above: Order Comment: Speci men Type: BLOOD SPECIMENOrdering Facility: [facility] Address: [address] [place] [address] Performed By: #### 5 8410-2 ####[facility] LABIA [id number] [address] [address] [place] Comprehensive metabolic 2000 panelon 12-12-2024 Albumin [Mass/Vol] 3.2 g/dL Low 3.9-4.9 [facility] Comment on above: Order Comment: Speci men Type: BLOOD SPECIMENOrdering Facility: [facility] Address: [address] [place] [address] Performed By: #### 2 4323-8, 73541-1, 2777- ####[facility] LABCLIA [id number] [address] [address] [place] ALP [Catalytic activity/Vol] 173 U/L High 34-123 [facility] Comment on above: Order Comment: Speci men Type: BLOOD SPECIMENOrdering Facility: [facility] Address: [address] [place] [address] Performed By: #### 2 4323-8, 86419-5, 2776- ####[facility] LABCLIA [id number] [place] [id number] [place] ALT [Catalytic activity/Vol] 41 U/L High 7-38 [facility] Comment on above: Order Comment: Speci men Type: BLOOD SPECIMENOrdering Facility: [facility] Address: [address] [place] [address] Performed By: #### 2 4323-8, , 2776- ####[facility] LABCLIA [id number] [place] [address] [place] Anion gap [Moles/Vol] 12 mmol/L Normal 8-15 [facility] Comment on above: Order Comment: Speci men Type: BLOOD SPECIMENOrdering Facility: [facility] Address: [address] [place] [address] Performed By: #### 2 4323-8, , 2776-06 ####[facility] LABCLIA [id number] [place] [address] [place] AST [Catalytic activity/Vol] 33 U/L Normal 13-35 [facility] Comment on above: Order Comment: Speci men Type: BLOOD SPECIMENOrdering Facility: [facility] Address: [address] [place] [address] Result Comment: Resu lts may be falsely increased due to interference from hemolysis. Suggest reorder as clinically indicated. Performed By: #### 2 4323-8, , 2776- ####[facility] LABCLIA [id number] [address] [place] [address] [place] Bilirubin [Mass/Vol] 0.5 mg/dL Normal 0.2-1.3 [facility] Comment on above: Order Comment: Speci men Type: BLOOD SPECIMENOrdering Facility: [facility] Address: [address] [place], [place] [address] Performed By: #### 2 4323-8, , 2776-06 ####[facility] LABCLIA [id number] [address] [place] [address] [place] Calcium [Mass/Vol] 8.7 mg/dL Normal 8.5-10.2 [facility] Comment on above: Order Comment: Speci men Type: BLOOD SPECIMENOrdering Facility: [facility] Address: [address] [place] [address] Performed By: #### 2 4323-8, , 2776-06 ####[facility] LABCLIA [id number] [address] [place] [address] [place] Chloride [Moles/Vol] 105 mmol/L Normal 98-107 [facility] Comment on above: Order Comment: Speci men Type: BLOOD SPECIMENOrdering Facility: [facility] Address: [address] [place], [place] [address] Performed By: #### 2 4323-8, , 2776-06 ####[facility] LABCLIA [id number] [address] [place] [address] [place] CO2 [Moles/Vol] 20 mmol/L Low 22-30 [facility] Comment on above: Order Comment: Speci men Type: BLOOD SPECIMENOrdering Facility: [facility] Address: [address] [place], [place] [address] Performed By: #### 2 4323-8, , 2776-06 ####[facility] LABCLIA [id number] [address] [place] [address] [place] Creatinine [Mass/Vol] 0.82 mg/dL Normal 0.58-0.96 [facility] Comment on above: Order Comment: Dora finch Type: BLOOD SPECIMENOrdering Facility: [facility] Address: [address] [place] [address] Performed By: #### 2 4323-8, 93137-5, 2776-06 ####[facility] [id number] [place] [id number] [facility] Creatinine and Glomerular filtration rate.predicted panel (S/P/Bld) 92 mL/min/1.73m??? Normal >=60 [facility] Comment on above: Order Comment: Dora finch Type: BLOOD SPECIMENOrdering Facility: [facility] Address: [address] [place] [address] Result Comment: Zeny mated Glomerular Filtration Rate [...] Performed By: #### 2 4323-8, , 2776-06 ####[facility] [id number] [place] [id number] [place] Glucose [Mass/Vol] 100 mg/dL High 74-99 [facility] Comment on above: Order Comment: Dora finch Type: BLOOD SPECIMENOrdering Facility: [facility] Address: [address] [place] [address] Result Comment: The [place] [employer] (ADA) provides guidance for cutoff [...] Standards of Medical Care in Diabetes 2016, [place] [employer]. Diabetes Care. 2016.39(Suppl 1). Performed By: #### 2 4323-8, , 2776-06 ####[facility] LABCLIA [id number] [address] [address] [place] Potassium [Moles/Vol] 4.4 mmol/L Normal 3.7-5.1 [facility] Comment on above: Order Comment: Speci men Type: BLOOD SPECIMENOrdering Facility: [facility] Address: [address] [place] [address] Performed By: #### 2 4328, , 2776-06 ####[facility] LABCLIA [id number] [address] [address] [place] Protein [Mass/Vol] 6.4 g/dL Normal 6.3-8.0 [facility] Comment on above: Order Comment: Speci men Type: BLOOD SPECIMENOrdering Facility: [facility] Address: [address] [place] [address] Performed By: #### 2 4328, , 2776-06 ####[facility] LABCLIA [id number] [address] [address] [place] Sodium [Moles/Vol] 137 mmol/L Normal 136-144 [facility] Comment on above: Order Comment: Speci men Type: BLOOD SPECIMENOrdering Facility: [facility] Address: [address] [place], [place] [address] Performed By: #### 2 4328, , 2776-06 ####[facility] LABCLIA [id number] [facility] [address] [place] [address] [place] Urea nitrogen [Mass/Vol] 20 mg/dL Normal 7-21 [facility] Comment on above: Order Comment: Speci men Type: BLOOD SPECIMENOrdering Facility: [facility] Address: [address] [place] [address] Performed By: #### 2 4323-8, 08195-4, 277-1 ####[facility] LABCLIA [id number] [place] [id number] [place] Lactate (Bld) [Moles/Vol]on 12-12-2024 Lactate [Moles/Vol] 5.2 mmol/L High 0.5-2.2 [facility] Comment on above: Order Comment: Speci men Type: BLOOD SPECIMENOrdering Facility: [facility] Address: [address] [place] [address] Performed By: #### 3 2693-4 ####[facility] LABCLIA [id number] [place] [id number] [place] Magnesium SerPl-mCncon 12-12 Magnesium [Mass/Vol] 1.8 mg/dL Normal 1.7-2.3 [facility] Comment on above: Order Comment: Speci men Type: BLOOD SPECIMENOrdering Facility: [facility] Address: [address] [place] [address] Performed By: #### 2 4323-8, 33792-0, 277- ####[facility] LABIA [id number] [place] [id number] [place] OPERATIVE NOon 12-12-2024 OPERATIVE NO Normal [facility] PTT, ANTICOAGULANT THERAPYon 12-12-2024 aPTT Coag (PPP) [Time] 22.2 s Low 23.0-32.4 [facility] Comment on above: Order Comment: Speci men Type: BLOOD SPECIMENOrdering Facility: [facility] Address: [address] [place] [address] Performed By: #### P TTA ####[facility] LABCLIA [id number] [address] [place] Pathology biopsy report Stan (Tiss)on 12-12-2024 AP DISCLAIMER Normal [facility] Comment on above: Order Comment: Speci men Type: TISSUE SPECIMENOrdering Facility: [facility] Address: [address] [place] [address] Result Comment: Billie cardenas Developed Test (LDT) Disclaimer:Performance characteristics of immunohistochemical, immunofluorescent, and chromogenic in-situ hybridization tests have been determined by the performing laboratory within [facility] Pathology and Laboratory Medicine Department ([facility], [facility], [facility], [facility], [facility], [facility], or ) in a manner consistent with CLIA requirements. One or more of these tests may not have been cleared or approved by the FDA. [facility] is regulated under CLIA as qualified to perform high-complexity testing. These tests are used for clinical purposes. These should not be regarded as investigational or for research. Positive and negative controls stain appropriately. Performed By: #### 6 6121-5 ####[facility] LABIA [id number] [address] [place] CASE REPORT Normal [facility] Comment on above: Order Comment: Speci men Type: TISSUE SPECIMENOrdering Facility: [facility] Address: [address] [place] [address] Result Comment: Surg ica Pathology Report Case: [id number] Provider: Alyson Devine MD Collected: 12/12/2024 10:48 AMOrdering Location: Admitting Received: 12/12/2024 03:06 PMPathologist: Kae Manning MDSpecimens: A) - Omentum, Resection, omentum B) - Small Bowel, Ileostomy, Loop ileostomy C) - Soft Tissue (Not otherwise specified), Peristomal Fat Performed By: #### 6 6121-5 ####[facility] LABCLIA [id number] [place] [id number] [place] CLINICAL HISTORY Normal [facility] Comment on above: Order Comment: Speci men Type: TISSUE SPECIMENOrdering Facility: [facility] Address: [address] [place] [address] Result Comment: Pre- op diagnosis:High output ileostomy (HCC) [R19.8, Z93.2] Performed By: #### 6 6121-5 ####[facility] LABCLIA [id number] [address] [address] [place] FINAL DIAGNOSIS Normal [facility] Comment on above: Order Comment: Speci men Type: TISSUE SPECIMENOrdering Facility: [facility] Address: [address] [place] [address] Result Comment: A. O mentum, omentectomy:- Benign mature adipose tissue.B. Ileum, ileostomy takedown:- Enterocutaneous tissue with histologic features consistent with an ileostomy site.C. Soft tissue, peristomal fat, excision:- Fibroadipose tissue with fat necrosis. at 1624 EDT Performed By: #### 6 6121-5 ####[facility] LABCLIA [id number] [address] STATES OF [facility] FINAL PERFORMING LAB Normal [facility] Comment on above: Order Comment: Speci men Type: TISSUE SPECIMENOrdering Facility: [facility] Address: [address] [place] [address] Result Comment: Diag nostic interpretation performed at: [facility], [address] [place], [place] [address] CLIA# [id number] Director: Jaison Lema MD Performed By: #### 6 6121-5 ####[facility] LABCLIA [id number] [address] [place] GROSS DESCRIPTION Normal [facility] Comment on above: Order Comment: Speci men Type: TISSUE SPECIMENOrdering Facility: [facility] Address: [address] [place] [address] Result Comment: A. O mentum, ResectionReceived fresh labeled omentum is a 15.0 x 14.0 x 1.0 cm aggregate of cunha-yellow, lobulated soft tissue consistent with omentum. No nodules are areas of induration are seen. Sectioning reveals yellow, homogeneous cut surfaces. Sleeve Machine Tender section submitted in A1.B. Small Bowel, IleostomyReceived [...] polyps or mass lesions are identified. A cash application representative section of the ostomy site is submitted in B1.C. Soft Tissue (Not otherwise specified)Received fresh labeled peristomal fat is a 4.0 x 3.5 x 2.0 cm cunha-yellow lobulated soft tissue fragment. Sectioning reveals cunha-yellow homogenous cut surfaces. No nodules or areas of induration are grossly appreciated. Sleeve Machine Tender section submitted in C1.Gross examination performed at [facility], [address] [place], [place] [address]MSL/ARIELA 12/12/24 3:23 PM Performed By: #### 6 6121-5 ####[facility] LABIA [id number] [place] [address] [place] Phosphate SerPl-mCncon 12-12 Phosphate [Mass/Vol] 3.7 mg/dL Normal 2.7-4.8 [facility] Comment on above: Order Comment: Speci men Type: BLOOD SPECIMENOrdering Facility: [facility] Address: [address] [place] [address] Performed By: #### 2 4323-8, 94289-0, 2777-1 ####[facility] LABIA [id number] [place] [address] [place] CBC panel Auto (Bld)on 12-11 Erythrocyte distribution width (RBC) [Ratio] 22.3 % High 11.5-15.0 [facility] Comment on above: Order Comment: Speci men Type: BLOOD SPECIMENOrdering Facility: [facility] Address: [address] [place] [address] Performed By: #### 5 8410-2 ####[facility] LABIA [id number] [place] [address] [place] Hematocrit (Bld) [Volume fraction] 26.7 % Low 36.0-46.0 [facility] Comment on above: Order Comment: Speci men Type: BLOOD SPECIMENOrdering Facility: [facility] Address: [address] [place] [address] Performed By: #### 5 8410-2 ####[facility] LABIA [id number] [place] [address] [place] Hemoglobin (Bld) [Mass/Vol] 8.3 g/dL Low 11.5-15.5 [facility] Comment on above: Order Comment: Speci men Type: BLOOD SPECIMENOrdering Facility: [facility] Address: [address] [place] [address] Performed By: #### 5 8410-2 ####[facility] LABIA [id number] [place] [address] [place] MCH (RBC) [Entitic mass] 28.0 pg Normal 26.0-34.0 [facility] Comment on above: Order Comment: Speci men Type: BLOOD SPECIMENOrdering Facility: [facility] Address: [address] [place] [address] Performed By: #### 5 8410-2 ####[facility] LABIA [id number] [place] [address] [place] MCHC (RBC) [Mass/Vol] 31.1 g/dL Normal 30.5-36.0 [facility] Comment on above: Order Comment: Speci men Type: BLOOD SPECIMENOrdering Facility: [facility] Address: [address] [place] [address] Performed By: #### 5 8410-2 ####[facility] LABIA [id number] [place] [address] [place] MCV (RBC) [Entitic vol] 90.2 fL Normal 80.0-100.0 [facility] Comment on above: Order Comment: Speci men Type: BLOOD SPECIMENOrdering Facility: [facility] Address: [address] [place] [address] Performed By: #### 5 8410-2 ####[facility] LABIA [id number] [place] [address] [place] Nucleated RBC (Bld) [#/Vol] 0.02 10*3/uL High <0.01 [facility] Comment on above: Order Comment: Speci men Type: BLOOD SPECIMENOrdering Facility: [facility] Address: [address] [place] [address] Performed By: #### 5 8410-2 ####[facility] LABIA [id number] [place] [address] [place] Platelet mean volume (Bld) [Entitic vol] 11.2 fL Normal 9.0-12.7 [facility] Comment on above: Order Comment: Speci men Type: BLOOD SPECIMENOrdering Facility: [facility] Address: [address] [place] [address] Performed By: #### 5 8410-2 ####[facility] LABIA [id number] [place] [address] [place] Platelets (Bld) [#/Vol] 301 10*3/uL Normal 150-400 [facility] Comment on above: Order Comment: Speci men Type: BLOOD SPECIMENOrdering Facility: [facility] Address: [address] [place] [address] Performed By: #### 5 8410-2 ####[facility] LABIA [id number] [place] [address] [place] RBC (Bld) [#/Vol] 2.96 10*6/uL Low 3.90-5.20 [facility] Comment on above: Order Comment: Speci men Type: BLOOD SPECIMENOrdering Facility: [facility] Address: [address] [place] [address] Performed By: #### 5 8410-2 ####[facility] LABCLIA [id number] [place] [address] [place] WBC (Bld) [#/Vol] 6.78 10*3/uL Normal 3.70-11.00 [facility] Comment on above: Order Comment: Speci men Type: BLOOD SPECIMENOrdering Facility: [facility] Address: [address] [place] [address] Performed By: #### 5 8410-2 ####[facility] LABIA [id number] [place] [address] [place] CONSULT PROGon 12-11-2024 CONSULT PROG Normal [facility] CONSULT PROG Normal [facility] CONSULT PROG Normal [facility] Comprehensive metabolic 2000 panelon 12-11-2024 Albumin [Mass/Vol] 3.5 g/dL Low 3.9-4.9 [facility] Comment on above: Order Comment: Speci men Type: BLOOD SPECIMENOrdering Facility: [facility] Address: [address] [place] [address] Performed By: #### 2 4323-8, 59066-7, 2777-, 2570-8 ####[facility] LABIA [id number] [address] [address] [place] ALP [Catalytic activity/Vol] 205 U/L High 34-123 [facility] Comment on above: Order Comment: Speci men Type: BLOOD SPECIMENOrdering Facility: [facility] Address: [address] [place] [address] Performed By: #### 2 4323-8, 28761-6, 2777-1, 257-8 ####[facility] LABCLIA [id number] [address] [address] [place] ALT [Catalytic activity/Vol] 45 U/L High 7-38 [facility] Comment on above: Order Comment: Speci men Type: BLOOD SPECIMENOrdering Facility: [facility] Address: [address] [place] [address] Performed By: #### 2 4323-8, 08734-0, 27712-25, 8 ####[facility] LABCLIA [id number] [address] [address] [place] Anion gap [Moles/Vol] 12 mmol/L Normal 8-15 [facility] Comment on above: Order Comment: Speci men Type: BLOOD SPECIMENOrdering Facility: [facility] Address: [address] [place] [address] Performed By: #### 2 4323-8, 91846-4, 27712-25, 8 ####[facility] LABCLIA [id number] [address] [address] [place] AST [Catalytic activity/Vol] 38 U/L High 13-35 [facility] Comment on above: Order Comment: Speci men Type: BLOOD SPECIMENOrdering Facility: [facility] Address: [address] [place] [address] Performed By: #### 2 4323-8, 45866-7, 2776-06, 8 ####[facility] LABCLIA [id number] [address] [address] [place] Bilirubin [Mass/Vol] 0.5 mg/dL Normal 0.2-1.3 [facility] Comment on above: Order Comment: Speci men Type: BLOOD SPECIMENOrdering Facility: [facility] Address: [address] [place] [address] Performed By: #### 2 4323-8, 66847-9, 277-, 2570-8 ####[facility] LABCLIA [id number] [address] [address] [place] Calcium [Mass/Vol] 9.3 mg/dL Normal 8.5-10.2 [facility] Comment on above: Order Comment: Speci men Type: BLOOD SPECIMENOrdering Facility: [facility] Address: [address] [place] [address] Performed By: #### 2 4323-8, 44501-6, 27712-25, 8 ####[facility] LABCLIA [id number] [address] [address] [place] Chloride [Moles/Vol] 102 mmol/L Normal 98-107 [facility] Comment on above: Order Comment: Speci men Type: BLOOD SPECIMENOrdering Facility: [facility] Address: [address] [place] [address] Performed By: #### 2 4323-8, 17967-6, 27712-25, 8 ####[facility] LABCLIA [id number] [place] [address] [place] CO2 [Moles/Vol] 24 mmol/L Normal 22-30 [facility] Comment on above: Order Comment: Speci men Type: BLOOD SPECIMENOrdering Facility: [facility] Address: [address] [place] [address] Performed By: #### 2 4323-8, 25654-3, 27712-25, 8 ####[facility] LABCLIA [id number] [address] [address] [place] Creatinine [Mass/Vol] 0.77 mg/dL Normal 0.58-0.96 [facility] Comment on above: Order Comment: Speci men Type: BLOOD SPECIMENOrdering Facility: [facility] Address: [address] [place], [place] [address] Performed By: #### 2 4323-8, 64017-2, 277-, 2570-8 ####[facility] LABCLIA [id number] [place] [address] [place] Creatinine and Glomerular filtration rate.predicted panel (S/P/Bld) 100 mL/min/1.73m??? Normal >=60 [facility] Comment on above: Order Comment: Dora finch Type: BLOOD SPECIMENOrdering Facility: [facility] Address: [address] [place] [address] Result Comment: Zeny mated Glomerular Filtration Rate [...] actual GFR. Performed By: #### 2 4323-8, 49444-5, 2777-1, 2570-8 ####[facility] LABIA [id number] [place] [address] [place] Glucose [Mass/Vol] 118 mg/dL High 74-99 [facility] Comment on above: Order Comment: Dora finch Type: BLOOD SPECIMENOrdering Facility: [facility] Address: [address] [place] [address] Result Comment: The [place] [employer] (ADA) provides guidance for cutoff [...] Standards of Medical Care in Diabetes 2016, [place] [employer]. Diabetes Care. 2016.39(Suppl 1). Performed By: #### 2 4323-8, 50479-8, 2777-1, 257-8 ####[facility] LABCLIA [id number] [address] [address] [place] Potassium [Moles/Vol] 4.0 mmol/L Normal 3.7-5.1 [facility] Comment on above: Order Comment: Speci men Type: BLOOD SPECIMENOrdering Facility: [facility] Address: [address] [place] [address] Performed By: #### 2 4323-8, 69800-0, 2776-06, 2571-01 ####[facility] LABCLIA [id number] [address] [address] [place] Protein [Mass/Vol] 7.1 g/dL Normal 6.3-8.0 [facility] Comment on above: Order Comment: Speci men Type: BLOOD SPECIMENOrdering Facility: [facility] Address: [address] [place] [address] Performed By: #### 2 4323-8, 23007-7, 27712-25, 2571-01 ####[facility] LABCLIA [id number] [place] [address] [place] Sodium [Moles/Vol] 138 mmol/L Normal 136-144 [facility] Comment on above: Order Comment: Speci men Type: BLOOD SPECIMENOrdering Facility: [facility] Address: [address] [place] [address] Performed By: #### 2 4323-8, 96371-7, 27712-25, 2571-01 ####[facility] LABCLIA [id number] [address] [address] [place] Urea nitrogen [Mass/Vol] 17 mg/dL Normal 7-21 [facility] Comment on above: Order Comment: Speci men Type: BLOOD SPECIMENOrdering Facility: [facility] Address: [address] [place], [place] [address] Performed By: #### 2 4323-8, 10299-7, 27712-25, 8 ####[facility] LABCLIA [id number] [place] [address] [place] Magnesium SerPl-mCncon 12-11 Magnesium [Mass/Vol] 1.9 mg/dL Normal 1.7-2.3 [facility] Comment on above: Order Comment: Speci men Type: BLOOD SPECIMENOrdering Facility: [facility] Address: [address] [place] [address] Performed By: #### 2 4323-8, 94605-5, 2777-1, 2571-8 ####[facility] [id number] [place] [id number] [place] NUTRITIONon 12-11-2024 NUTRITION Normal [facility] PTT, ANTICOAGULANT THERAPYon 12-11-2024 aPTT Coag (PPP) [Time] 55.2 s High 23.0-32.4 [facility] Comment on above: Order Comment: Speci men Type: BLOOD SPECIMENOrdering Facility: [facility] Address: [address] [place] [address] Performed By: #### P TTAC ####[facility] [id number] [place] [address] [place] aPTT Coag (PPP) [Time] 68.6 s High 23.0-32.4 [facility] Comment on above: Order Comment: Speci men Type: BLOOD SPECIMENOrdering Facility: [facility] Address: [address] [place] [address] Performed By: #### P TTAC ####[facility] [id number] [place] [id number] [place] Phosphate SerPl-mCncon 12-11 Phosphate [Mass/Vol] 3.1 mg/dL Normal 2.7-4.8 [facility] Comment on above: Order Comment: Speci men Type: BLOOD SPECIMENOrdering Facility: [facility] Address: [address] [place] [address] Performed By: #### 2 4323-8, 75353-7, 2777-1, 2570-8 ####[facility] LABIA [id number] [place] [address] [place] Trigl SerPl-mCncon Triglyceride [Mass/Vol] 107 mg/dL Normal <150 [facility] Comment on above: Order Comment: Speci men Type: BLOOD SPECIMENOrdering Facility: [facility] Address: [address] [place] [address] Result Comment: <150 mg/dL, Normal 150-199 mg/dL, Borderline high 200-499 mg/dL, High>499 mg/dL, Very highReference:1. National Cholesterol Education Program ATP III Guideline At-A-Glance Quick Desk Reference: National Heart, Lung, and Blood [place]. National Institutes of Health. 2001: [facility] Publication No. 01-3305. Performed By: #### 2 4323-8, 88150-9, 2777-, 8 ####[facility] [id number] [place] [id number] [place] Triglyceride [Mass/Vol]on FASTING TIME 0 hrs Normal [facility] Comment on above: Order Comment: Speci men Type: BLOOD SPECIMENOrdering Facility: [facility] Address: [address] [place] [address] Performed By: #### 2 4323-8, 26373-7, 2777-1, 2570-8 ####[facility] LABIA [id number] [address] [address] [place] Vancomycin [place] SerPl-mCncon 12-11-2024 Vancomycin random [Mass/Vol] 14.8 ug/mL Normal 10.0-20.0 [facility] Comment on above: Order Comment: Speci men Type: BLOOD SPECIMENOrdering Facility: [facility] Address: [address] [place] [address] Result Comment: Refe rence ranges and high/low indicator flags are provided as general guidelines only. The treating physician must determine appropriate target levels/dosing based on the specific clinical situation. Performed By: #### 4 091-5 ####[facility] LABCLIA [id number] [address] [place] ANES POSTPROC EVALon 025 ANES POSTPROC EVAL Normal [facility] ANES PRE-OPon 12-10-2024 ANES PRE-OP Normal [facility] B-HCG SerPl-aCncon HCG.beta subunit Qn m[IU]/mL Normal <5.0 [facility] Comment on above: Order Comment: Speci men Type: BLOOD SPECIMENOrdering Facility: [facility] Address: [address] [place] [address] Result Comment: [place] house Performed By: #### 2 1198-7 ####[facility] LABIA [id number] [address] OF [facility] CASE MANAGEMon 12-10-2024 CASE MANAGEM Normal [facility] CBC panel Auto (Bld)on 12-10 Erythrocyte distribution width (RBC) [Ratio] 21.9 % High 11.5-15.0 [facility] Comment on above: Order Comment: Speci men Type: BLOOD SPECIMENOrdering Facility: [facility] Address: [address] [place] [address] Performed By: #### 5 8410-2 ####[facility] LABIA [id number] [address] STATES [facility] Hematocrit (Bld) [Volume fraction] 28.0 % Low 36.0-46.0 [facility] Comment on above: Order Comment: Speci men Type: BLOOD SPECIMENOrdering Facility: [facility] Address: [address] [place] [address] Performed By: #### 5 8410-2 ####[facility] LABIA [id number] [id number] [address] [place] Hemoglobin (Bld) [Mass/Vol] 8.3 g/dL Low 11.5-15.5 [facility] Comment on above: Order Comment: Speci men Type: BLOOD SPECIMENOrdering Facility: [facility] Address: [address] [place] [address] Performed By: #### 5 8410-2 ####[facility] LABIA [id number] [place] [address] [place] MCH (RBC) [Entitic mass] 27.9 pg Normal 26.0-34.0 [facility] Comment on above: Order Comment: Speci men Type: BLOOD SPECIMENOrdering Facility: [facility] Address: [address] [place] [address] Performed By: #### 5 8410-2 ####[facility] [id number] [address] [place] MCHC (RBC) [Mass/Vol] 29.6 g/dL Low 30.5-36.0 [facility] Comment on above: Order Comment: Speci men Type: BLOOD SPECIMENOrdering Facility: [facility] Address: [address] [place] [address] Performed By: #### 5 8410-2 ####[facility] [id number] [place] [address] [place] MCV (RBC) [Entitic vol] 94.0 fL Normal 80.0-100.0 [facility] Comment on above: Order Comment: Speci men Type: BLOOD SPECIMENOrdering Facility: [facility] Address: [address] [place] [address] Result Comment: MCV is >= 10% variation from the most recent sample, clinical correlation suggested to exclude specimen misidentification. Performed By: #### 5 8410-2 ####[facility] LABIA [id number] [place] [address] [place] Nucleated RBC (Bld) [#/Vol] 0.02 10*3/uL High <0.01 [facility] Comment on above: Order Comment: Speci men Type: BLOOD SPECIMENOrdering Facility: [facility] Address: [address] [place] [address] Performed By: #### 5 8410-2 ####[facility] LABCLIA [id number] [place] [address] [place] Platelet mean volume (Bld) [Entitic vol] 11.7 fL Normal 9.0-12.7 [facility] Comment on above: Order Comment: Speci men Type: BLOOD SPECIMENOrdering Facility: [facility] Address: [address] [place] [address] Performed By: #### 5 8410-2 ####[facility] LABIA [id number] [place] [address] [place] Platelets (Bld) [#/Vol] 389 10*3/uL Normal 150-400 [facility] Comment on above: Order Comment: Speci men Type: BLOOD SPECIMENOrdering Facility: [facility] Address: [address] [place] [address] Performed By: #### 5 8410-2 ####[facility] LABIA [id number] [place] [address] [place] RBC (Bld) [#/Vol] 2.98 10*6/uL Low 3.90-5.20 [facility] Comment on above: Order Comment: Speci men Type: BLOOD SPECIMENOrdering Facility: [facility] Address: [address] [place] [address] Performed By: #### 5 8410-2 ####[facility] LABCLIA [id number] [place] [address] [place] WBC (Bld) [#/Vol] 6.68 10*3/uL Normal 3.70-11.00 [facility] Comment on above: Order Comment: Speci men Type: BLOOD SPECIMENOrdering Facility: [facility] Address: [address] [place] [address] Result Comment: No c lot detected. Performed By: #### 5 8410-2 ####[facility] LABCLIA [id number] [address] [place] [address] [place] CONSULT PROGon 12-10-2024 CONSULT PROG Normal [facility] CONSULT PROG Normal [facility] CRP SerPl-mCncon 12-10-2024 CRP [Mass/Vol] Normal <0.9 [facility] Comment on above: Order Comment: Speci men Type: BLOOD SPECIMENOrdering Facility: [facility] Address: [address] [place] [address] Result Comment: Poss ible contamination.Corrected result: Previously reported as <0.3 mg/dL on 12/10/2024 at 8:05 AM EDT. Performed By: #### 1 988-5 ####[facility] LABCLIA [id number] [place] [address] [place] Comprehensive metabolic 2000 panelon 12-10-2024 Albumin [Mass/Vol] 3.7 g/dL Low 3.9-4.9 [facility] Comment on above: Order Comment: Speci men Type: BLOOD SPECIMENOrdering Facility: [facility] Address: [address] [place] [address] Performed By: #### 2 4323-8, , 2777-1 ####[facility] LABCLIA [id number] [address] [place] [address] [place] ALP [Catalytic activity/Vol] 198 U/L High 34-123 [facility] Comment on above: Order Comment: Speci men Type: BLOOD SPECIMENOrdering Facility: [facility] Address: [address] [place] [address] Performed By: #### 2 4323-8, 54939-4, 2777-1 ####[facility] LABCLIA [id number] [place] [address] [place] ALT [Catalytic activity/Vol] 43 U/L High 7-38 [facility] Comment on above: Order Comment: Speci men Type: BLOOD SPECIMENOrdering Facility: [facility] Address: [address] [place] [address] Performed By: #### 2 4323-8, 85142-6, 2776- ####[facility] LABCLIA [id number] [place] [address] [place] Anion gap [Moles/Vol] 11 mmol/L Normal 8-15 [facility] Comment on above: Order Comment: Speci men Type: BLOOD SPECIMENOrdering Facility: [facility] Address: [address] [place] [address] Performed By: #### 2 4323-8, , 2776-06 ####[facility] LABCLIA [id number] [place] [address] [place] AST [Catalytic activity/Vol] 34 U/L Normal 13-35 [facility] Comment on above: Order Comment: Speci men Type: BLOOD SPECIMENOrdering Facility: [facility] Address: [address] [place] [address] Performed By: #### 2 4323-8, , 2776-06 ####[facility] LABCLIA [id number] [place] [id number] [place] Bilirubin [Mass/Vol] 0.6 mg/dL Normal 0.2-1.3 [facility] Comment on above: Order Comment: Speci men Type: BLOOD SPECIMENOrdering Facility: [facility] Address: [address] [place] [address] Performed By: #### 2 4323-8, , 2776-06 ####[facility] [facility] LABCLIA [id number] [address], [facility] [place] Calcium [Mass/Vol] 9.6 mg/dL Normal 8.5-10.2 [facility] Comment on above: Order Comment: Speci men Type: BLOOD SPECIMENOrdering Facility: [facility] Address: [address] [place] [address] Performed By: #### 2 4323-8, , 2776-06 ####[facility] LABCLIA [id number] [facility] [address] [address] [place] Chloride [Moles/Vol] 103 mmol/L Normal 98-107 [facility] Comment on above: Order Comment: Speci men Type: BLOOD SPECIMENOrdering Facility: [facility] Address: [address] [place], [place] [address] Performed By: #### 2 4323-8, , 2776-06 ####[facility] LABCLIA [id number] [facility] [address] [address] [place] CO2 [Moles/Vol] 23 mmol/L Normal 22-30 [facility] Comment on above: Order Comment: Speci men Type: BLOOD SPECIMENOrdering Facility: [facility] Address: [address] [place], [place] [address] Performed By: #### 2 4323-8, , 2776-06 ####[facility] LABCLIA [id number] [facility] [address] [address] [place] Creatinine [Mass/Vol] 0.85 mg/dL Normal 0.58-0.96 [facility] Comment on above: Order Comment: Speci men Type: BLOOD SPECIMENOrdering Facility: [facility] Address: [address] [place] [address] Performed By: #### 2 4323-8, , 2776-06 ####[facility] LABCLIA [id number] [facility] [address] [place] [address] [place] Creatinine and Glomerular filtration rate.predicted panel (S/P/Bld) 88 mL/min/1.73m??? Normal >=60 [facility] Comment on above: Order Comment: Dora finch Type: BLOOD SPECIMENOrdering Facility: [facility] Address: [address] [place] [address] Result Comment: Zeny mated Glomerular Filtration Rate [...] actual GFR. Performed By: #### 2 4323-8, 19603-3, 2776- ####[facility] [id number] [place] [id number] [place] Glucose [Mass/Vol] 119 mg/dL High 74-99 [facility] Comment on above: Order Comment: Dora finch Type: BLOOD SPECIMENOrdering Facility: [facility] Address: [address] [place] [address] Result Comment: The [place] Diabetes [employer] (ADA) provides guidance for cutoff [...] Standards of Medical Care in Diabetes 2016, [place] [employer]. Diabetes Care. 2016.39(Suppl 1). Performed By: #### 2 4323-8, 78018-9, 2776- ####[facility] [id number] [address] [address] [place] Potassium [Moles/Vol] 4.8 mmol/L Normal 3.7-5.1 [facility] Comment on above: Order Comment: Dora finch Type: BLOOD SPECIMENOrdering Facility: [facility] Address: [address] [place], [place] [address] Performed By: #### 2 4323-8, 54846-7, 2776-06 ####[facility] LABCLIA [id number] [address] [address] [place] Protein [Mass/Vol] 7.4 g/dL Normal 6.3-8.0 [facility] Comment on above: Order Comment: Speci men Type: BLOOD SPECIMENOrdering Facility: [facility] Address: [address] [place], [place] [address] Performed By: #### 2 4323-8, , 2776-06 ####[facility] LABIA [id number] [place] [id number] [place] Sodium [Moles/Vol] 137 mmol/L Normal 136-144 [facility] Comment on above: Order Comment: Speci men Type: BLOOD SPECIMENOrdering Facility: [facility] Address: [address] [place], [place] [address] Performed By: #### 2 4323-8, , 2776-06 ####[facility] LABIA [id number] [address] [address] [place] Urea nitrogen [Mass/Vol] 16 mg/dL Normal 7-21 [facility] Comment on above: Order Comment: Speci men Type: BLOOD SPECIMENOrdering Facility: [facility] Address: [address] [place], [place] [address] Performed By: #### 2 4323-8, 91086-9, 2776-06 ####[facility] LABIA [id number] [address] [address] [place] Magnesium SerPl-mCncon 12-10 Magnesium [Mass/Vol] 2.2 mg/dL Normal 1.7-2.3 [facility] Comment on above: Order Comment: Speci men Type: BLOOD SPECIMENOrdering Facility: [facility] Address: [address] [place] [address] Performed By: #### 2 4323-8, 86961-2, 2777-1 ####[facility] LABCLIA [id number] [place] [address] [place] NUTRITIONon 12-10-2024 NUTRITION Normal [facility] PTT, ANTICOAGULANT THERAPYon 12-10-2024 aPTT Coag (PPP) [Time] 50.4 s High 23.0-32.4 [facility] Comment on above: Order Comment: Speci men Type: BLOOD SPECIMENOrdering Facility: [facility] Address: [address] [place] [address] Performed By: #### P TTAC ####[facility] LABCLIA [id number] [address] [facility] aPTT Coag (PPP) [Time] 29.2 s Normal 23.0-32.4 [facility] Comment on above: Order Comment: Speci men Type: BLOOD SPECIMENOrdering Facility: [facility] Address: [address] [place] [address] Result Comment: Inte rpret with caution. Sample centrifuged greater than 1 hour from collection time. According to Clinical and Laboratory Standards [place] guidelines, results could be falsely decreased due to heparin neutralization by in vitro release of platelet factor 4. Suggest correlation with clinical findings and redraw if indicated. Performed By: #### P TTAC ####[facility] LABCLIA [id number] [place] [address] [place] Phosphate SerPl-mCncon 12-10 Phosphate [Mass/Vol] 4.3 mg/dL Normal 2.7-4.8 [facility] Comment on above: Order Comment: Speci men Type: BLOOD SPECIMENOrdering Facility: [facility] Address: [address] [place] [address] Performed By: #### 2 4323-8, 69186-3, 2777- ####[facility] LABCLIA [id number] [address] [place] TYPE + SCREENon 12-10-2024 ABO O Normal [facility] Comment on above: Order Comment: Speci men Type: BLOOD SPECIMENOrdering Facility: [facility] Address: [address] [place] [address] Performed By: #### T SCR ####[facility] BLOOD BANKCLIA [id number] [place] [address] [place] Rh Nom (Bld) Positive Normal [facility] Comment on above: Order Comment: Speci men Type: BLOOD SPECIMENOrdering Facility: [facility] Address: [address] [place] [address] Performed By: #### T SCR ####[facility] BLOOD BANKCLIA [id number] [place] [address] [place] TYPE AND SCREEN EXPIRATION 12/13/2024 23:59 Normal [facility] Comment on above: Order Comment: Speci men Type: BLOOD SPECIMENOrdering Facility: [facility] Address: [address] [place] [address] Performed By: #### T SCR ####[facility] BLOOD BANKCLIA [id number] [place] [address] [place] ALLIED HEALTHon 12-09-2024 ALLIED HEALTH Normal [facility] CBC panel Auto (Bld)on 12-09 Erythrocyte distribution width (RBC) [Ratio] 20.9 % High 11.5-15.0 [facility] Comment on above: Order Comment: Speci men Type: BLOOD SPECIMENOrdering Facility: [facility] Address: [address] [place] [address] Performed By: #### 5 8410-2 ####[facility] LABCLIA [id number] [place] [id number] [place] Hematocrit (Bld) [Volume fraction] 28.3 % Low 36.0-46.0 [facility] Comment on above: Order Comment: Speci men Type: BLOOD SPECIMENOrdering Facility: [facility] Address: [address] [place] [address] Performed By: #### 5 8410-2 ####[facility] LABIA [id number] [place] [address] [place] Hemoglobin (Bld) [Mass/Vol] 8.9 g/dL Low 11.5-15.5 [facility] Comment on above: Order Comment: Speci men Type: BLOOD SPECIMENOrdering Facility: [facility] Address: [address] [place] [address] Performed By: #### 5 8410-2 ####[facility] LABIA [id number] [place] [address] [place] MCH (RBC) [Entitic mass] 26.5 pg Normal 26.0-34.0 [facility] Comment on above: Order Comment: Speci men Type: BLOOD SPECIMENOrdering Facility: [facility] Address: [address] [place] [address] Performed By: #### 5 8410-2 ####[facility] LABIA [id number] [place] [address] [place] MCHC (RBC) [Mass/Vol] 31.4 g/dL Normal 30.5-36.0 [facility] Comment on above: Order Comment: Speci men Type: BLOOD SPECIMENOrdering Facility: [facility] Address: [address] [place] [address] Performed By: #### 5 8410-2 ####[facility] LABIA [id number] [place] [address] [place] MCV (RBC) [Entitic vol] 84.2 fL Normal 80.0-100.0 [facility] Comment on above: Order Comment: Speci men Type: BLOOD SPECIMENOrdering Facility: [facility] Address: [address] [place] [address] Performed By: #### 5 8410-2 ####[facility] LABCLIA [id number] [address] [place] [address] [place] Nucleated RBC (Bld) [#/Vol] 10*3/uL Normal <0.01 [facility] Comment on above: Order Comment: Speci men Type: BLOOD SPECIMENOrdering Facility: [facility] Address: [address] [place] [address] Performed By: #### 5 8410-2 ####[facility] LABIA [id number] [address], [place] [address] [place] Platelet mean volume (Bld) [Entitic vol] 9.2 fL Normal 9.0-12.7 [facility] Comment on above: Order Comment: Speci men Type: BLOOD SPECIMENOrdering Facility: [facility] Address: [address] [place] [address] Performed By: #### 5 8410-2 ####[facility] LABIA [id number] [place] [address] [place] Platelets (Bld) [#/Vol] 423 10*3/uL High 150-400 [facility] Comment on above: Order Comment: Speci men Type: BLOOD SPECIMENOrdering Facility: [facility] Address: [address] [place] [address] Performed By: #### 5 8410-2 ####[facility] LABIA [id number] [place] [address] [place] RBC (Bld) [#/Vol] 3.36 10*6/uL Low 3.90-5.20 [facility] Comment on above: Order Comment: Speci men Type: BLOOD SPECIMENOrdering Facility: [facility] Address: [address] [place] [address] Performed By: #### 5 8410-2 ####[facility] LABIA [id number] [address], [facility] [place] WBC (Bld) [#/Vol] 8.36 10*3/uL Normal 3.70-11.00 [facility] Comment on above: Order Comment: Speci men Type: BLOOD SPECIMENOrdering Facility: [facility] Address: [address] [place] [address] Performed By: #### 5 8410-2 ####[facility] LABCLIA [id number] [place] [id number] [place] Comprehensive metabolic 2000 panelon 12-09-2024 Albumin [Mass/Vol] 3.2 g/dL Low 3.9-4.9 [facility] Comment on above: Order Comment: Speci men Type: BLOOD SPECIMENOrdering Facility: [facility] Address: [address] [place] [address] Performed By: #### 2 4323-8, , 2776- ####[facility] LABCLIA [id number] [place] [address] [place] ALP [Catalytic activity/Vol] 163 U/L High 34-123 [facility] Comment on above: Order Comment: Speci men Type: BLOOD SPECIMENOrdering Facility: [facility] Address: [address] [place] [address] Performed By: #### 2 4323-8, , 2776- ####[facility] LABIA [id number] [place] [id number] [place] ALT [Catalytic activity/Vol] 37 U/L Normal 7-38 [facility] Comment on above: Order Comment: Speci men Type: BLOOD SPECIMENOrdering Facility: [facility] Address: [address] [place] [address] Performed By: #### 2 4323-8, , 2776- ####[facility] LABCLIA [id number] [address] [address] [place] Anion gap [Moles/Vol] 12 mmol/L Normal 8-15 [facility] Comment on above: Order Comment: Speci men Type: BLOOD SPECIMENOrdering Facility: [facility] Address: [address] [place], [place] [address] Performed By: #### 2 4323-8, , 2776-06 ####[facility] LABCLIA [id number] [address] [address] [place] AST [Catalytic activity/Vol] 31 U/L Normal 13-35 [facility] Comment on above: Order Comment: Speci men Type: BLOOD SPECIMENOrdering Facility: [facility] Address: [address] [place], [place] [address] Performed By: #### 2 4323-8, , 2776-06 ####[facility] LABCLIA [id number] [address] [address] [place] Bilirubin [Mass/Vol] 0.5 mg/dL Normal 0.2-1.3 [facility] Comment on above: Order Comment: Speci men Type: BLOOD SPECIMENOrdering Facility: [facility] Address: [address] [place], [place] [address] Performed By: #### 2 4323-8, , 2776-06 ####[facility] LABCLIA [id number] [address] [address] [place] Calcium [Mass/Vol] 9.2 mg/dL Normal 8.5-10.2 [facility] Comment on above: Order Comment: Speci men Type: BLOOD SPECIMENOrdering Facility: [facility] Address: [address] [place], [place] [address] Performed By: #### 2 4323-8, , 2776-06 ####[facility] LABCLIA [id number] [address] [address] [place] Chloride [Moles/Vol] 101 mmol/L Normal 98-107 [facility] Comment on above: Order Comment: Speci men Type: BLOOD SPECIMENOrdering Facility: [facility] Address: [address] [place] [address] Performed By: #### 2 4323-8, , 2776-06 ####[facility] LABIA [id number] [place] [id number] [place] CO2 [Moles/Vol] 24 mmol/L Normal 22-30 [facility] Comment on above: Order Comment: Speci men Type: BLOOD SPECIMENOrdering Facility: [facility] Address: [address] [place] [address] Performed By: #### 2 4323-8, , 2776-06 ####[facility] [id number] [place] [address] [place] Creatinine [Mass/Vol] 0.89 mg/dL Normal 0.58-0.96 [facility] Comment on above: Order Comment: Speci men Type: BLOOD SPECIMENOrdering Facility: [facility] Address: [address] [place] [address] Performed By: #### 2 4323-8, , 2776-06 ####[facility] [id number] [place] [address] [place] Creatinine and Glomerular filtration rate.predicted panel (S/P/Bld) 84 mL/min/1.73m??? Normal >=60 [facility] Comment on above: Order Comment: Speci men Type: BLOOD SPECIMENOrdering Facility: [facility] Address: [address] [place] [address] Result Comment: Zeny mated Glomerular Filtration Rate [...] Performed By: #### 2 4323-8, , 2776-06 ####[facility] LABCLIA [id number] [address] [address] [place] Glucose [Mass/Vol] 105 mg/dL High 74-99 [facility] Comment on above: Order Comment: Speci men Type: BLOOD SPECIMENOrdering Facility: [facility] Address: [address] [place] [address] Result Comment: The [place] [employer] (ADA) provides guidance for cutoff [...] Standards of Medical Care in Diabetes 2016, [place] [employer]. Diabetes Care. 2016.39(Suppl 1). Performed By: #### 2 4323-8, 57329-5, 2776-06 ####[facility] LABIA [id number] [place] [id number] [place] Potassium [Moles/Vol] 3.9 mmol/L Normal 3.7-5.1 [facility] Comment on above: Order Comment: Speci men Type: BLOOD SPECIMENOrdering Facility: [facility] Address: [address] [place] [address] Performed By: #### 2 4323-8, 33638-7, 2776-06 ####[facility] LABIA [id number] [address] [address] [place] Protein [Mass/Vol] 6.4 g/dL Normal 6.3-8.0 [facility] Comment on above: Order Comment: Speci men Type: BLOOD SPECIMENOrdering Facility: [facility] Address: [address] [place] [address] Performed By: #### 2 4323-8, 73096-9, 2777-1 ####[facility] LABCLIA [id number] [place] [id number] [place] Sodium [Moles/Vol] 137 mmol/L Normal 136-144 [facility] Comment on above: Order Comment: Speci men Type: BLOOD SPECIMENOrdering Facility: [facility] Address: [address] [place] [address] Performed By: #### 2 4323-8, , 27712-25 ####[facility] LABCLIA [id number] [place] [id number] [place] Urea nitrogen [Mass/Vol] 17 mg/dL Normal 7-21 [facility] Comment on above: Order Comment: Speci men Type: BLOOD SPECIMENOrdering Facility: [facility] Address: [address] [place] [address] Performed By: #### 2 4323-8, , 2777 ####[facility] LABIA [id number] [place] [id number] [place] Magnesium SerPl-mCncon 12-09 Magnesium [Mass/Vol] 1.9 mg/dL Normal 1.7-2.3 [facility] Comment on above: Order Comment: Speci men Type: BLOOD SPECIMENOrdering Facility: [facility] Address: [address] [place] [address] Performed By: #### 2 4323-8, , 27771 ####[facility] LABIA [id number] [place] [id number] [place] NURSING PROGon 12-09-2024 NURSING PROG Normal [facility] PTT, ANTICOAGULANT THERAPYon 12-09-2024 aPTT Coag (PPP) [Time] 64.5 s High 23.0-32.4 [facility] Comment on above: Order Comment: Speci men Type: BLOOD SPECIMENOrdering Facility: [facility] Address: [address] [place] [address] Performed By: #### P TTAC ####[facility] LABIA [id number] [place] [id number] [place] aPTT Coag (PPP) [Time] 44.6 s High 23.0-32.4 [facility] Comment on above: Order Comment: Speci men Type: BLOOD SPECIMENOrdering Facility: [facility] Address: [address] [place] [address] Performed By: #### P TTAC ####[facility] LABIA [id number] [address] aPTT Coag (PPP) [Time] 87.9 s High 23.0-32.4 [facility] Comment on above: Order Comment: Speci men Type: BLOOD SPECIMENOrdering Facility: [facility] Address: [address] [place] [address] Performed By: #### P TTAC ####[facility] [id number] [place] [id number] [place] Phosphate SerPl-mCncon 12-09 Phosphate [Mass/Vol] 4.1 mg/dL Normal 2.7-4.8 [facility] Comment on above: Order Comment: Speci men Type: BLOOD SPECIMENOrdering Facility: [facility] Address: [address] [place] [address] Performed By: #### 2 4323-8, 37804-4, 2777-1 ####[facility] [id number] [place] [id number] [place] BRIEF OP NOTon 12-08-2024 BRIEF OP NOT Normal [facility] CBC panel Auto (Bld)on 12-08 Erythrocyte distribution width (RBC) [Ratio] 20.5 % High 11.5-15.0 [facility] Comment on above: Order Comment: Speci men Type: BLOOD SPECIMENOrdering Facility: [facility] Address: [address] [place] [address] Performed By: #### 5 8410-2 ####[facility] LABCLIA [id number] [place] [address] [place] Hematocrit (Bld) [Volume fraction] 27.6 % Low 36.0-46.0 [facility] Comment on above: Order Comment: Speci men Type: BLOOD SPECIMENOrdering Facility: [facility] Address: [address] [place] [address] Performed By: #### 5 8410-2 ####[facility] LABCLIA [id number] [place] [address] [place] Hemoglobin (Bld) [Mass/Vol] 8.4 g/dL Low 11.5-15.5 [facility] Comment on above: Order Comment: Speci men Type: BLOOD SPECIMENOrdering Facility: [facility] Address: [address] [place] [address] Performed By: #### 5 8410-2 ####[facility] LABCLIA [id number] [place] [address] [place] MCH (RBC) [Entitic mass] 25.9 pg Low 26.0-34.0 [facility] Comment on above: Order Comment: Speci men Type: BLOOD SPECIMENOrdering Facility: [facility] Address: [address] [place] [address] Performed By: #### 5 8410-2 ####[facility] LABCLIA [id number] [place] [address] [place] MCHC (RBC) [Mass/Vol] 30.4 g/dL Low 30.5-36.0 [facility] Comment on above: Order Comment: Speci men Type: BLOOD SPECIMENOrdering Facility: [facility] Address: [address] [place] [address] Performed By: #### 5 8410-2 ####[facility] LABCLIA [id number] [place] [address] [place] MCV (RBC) [Entitic vol] 85.2 fL Normal 80.0-100.0 [facility] Comment on above: Order Comment: Speci men Type: BLOOD SPECIMENOrdering Facility: [facility] Address: [address] [place] [address] Performed By: #### 5 8410-2 ####[facility] LABIA [id number] [place] [address] [place] Nucleated RBC (Bld) [#/Vol] 0.02 10*3/uL High <0.01 [facility] Comment on above: Order Comment: Speci men Type: BLOOD SPECIMENOrdering Facility: [facility] Address: [address] [place] [address] Performed By: #### 5 8410-2 ####[facility] [id number] [place] [address] [place] Platelet mean volume (Bld) [Entitic vol] 10.3 fL Normal 9.0-12.7 [facility] Comment on above: Order Comment: Speci men Type: BLOOD SPECIMENOrdering Facility: [facility] Address: [address] [place] [address] Performed By: #### 5 8410-2 ####[facility] [id number] [place] [address] [place] Platelets (Bld) [#/Vol] 423 10*3/uL High 150-400 [facility] Comment on above: Order Comment: Speci men Type: BLOOD SPECIMENOrdering Facility: [facility] Address: [address] [place] [address] Performed By: #### 5 8410-2 ####[facility] LABIA [id number] [place] [address] [place] RBC (Bld) [#/Vol] 3.24 10*6/uL Low 3.90-5.20 [facility] Comment on above: Order Comment: Speci men Type: BLOOD SPECIMENOrdering Facility: [facility] Address: [address] [place] [address] Performed By: #### 5 8410-2 ####[facility] LABCLIA [id number] [address] [address] [place] WBC (Bld) [#/Vol] 7.37 10*3/uL Normal 3.70-11.00 [facility] Comment on above: Order Comment: Speci men Type: BLOOD SPECIMENOrdering Facility: [facility] Address: [address] [place] [address] Performed By: #### 5 8410-2 ####[facility] LABCLIA [id number] [place] [address] [place] CONSULT PROGon 12-08-2024 CONSULT PROG Normal [facility] CONSULT PROG Normal [facility] Comprehensive metabolic 2000 panelon 12-08-2024 Albumin [Mass/Vol] 3.2 g/dL Low 3.9-4.9 [facility] Comment on above: Order Comment: Speci men Type: BLOOD SPECIMENOrdering Facility: [facility] Address: [address] [place] [address] Performed By: #### 2 4323-8, 58677-9, 7- ####[facility] LABCLIA [id number] [place] [id number] [place] ALP [Catalytic activity/Vol] 163 U/L High 34-123 [facility] Comment on above: Order Comment: Speci men Type: BLOOD SPECIMENOrdering Facility: [facility] Address: [address] [place] [address] Performed By: #### 2 4323-8, 67011-9, 2777-1 ####[facility] LABCLIA [id number] [address] [address] [place] ALT [Catalytic activity/Vol] 41 U/L High 7-38 [facility] Comment on above: Order Comment: Speci men Type: BLOOD SPECIMENOrdering Facility: [facility] Address: [address] [place] [address] Performed By: #### 2 4323-8, , 2776-06 ####[facility] LABCLIA [id number] [facility] [address] [address] [place] Anion gap [Moles/Vol] 14 mmol/L Normal 8-15 [facility] Comment on above: Order Comment: Speci men Type: BLOOD SPECIMENOrdering Facility: [facility] Address: [address] [place] [address] Performed By: #### 2 4323-8, , 2776-06 ####[facility] LABCLIA [id number] [place] [address] [place] AST [Catalytic activity/Vol] 30 U/L Normal 13-35 [facility] Comment on above: Order Comment: Speci men Type: BLOOD SPECIMENOrdering Facility: [facility] Address: [address] [place] [address] Performed By: #### 2 4323-8, , 2776-06 ####[facility] LABCLIA [id number] [address], [facility] [place] Bilirubin [Mass/Vol] 0.4 mg/dL Normal 0.2-1.3 [facility] Comment on above: Order Comment: Speci men Type: BLOOD SPECIMENOrdering Facility: [facility] Address: [address] [place] [address] Performed By: #### 2 4323-8, , 2776-06 ####[facility] LABCLIA [id number] [facility] [address] [place] [address] [place] Calcium [Mass/Vol] 9.3 mg/dL Normal 8.5-10.2 [facility] Comment on above: Order Comment: Speci men Type: BLOOD SPECIMENOrdering Facility: [facility] Address: [address] [place] [address] Performed By: #### 2 4323-8, , 2776-06 ####[facility] LABCLIA [id number] [address] [address] [place] Chloride [Moles/Vol] 101 mmol/L Normal 98-107 [facility] Comment on above: Order Comment: Speci men Type: BLOOD SPECIMENOrdering Facility: [facility] Address: [address] [place] [address] Performed By: #### 2 4323-8, , 2776-06 ####[facility] LABCLIA [id number] [place] [id number] [place] CO2 [Moles/Vol] 22 mmol/L Normal 22-30 [facility] Comment on above: Order Comment: Speci men Type: BLOOD SPECIMENOrdering Facility: [facility] Address: [address] [place], [place] [address] Performed By: #### 2 4323-8, , 2776-06 ####[facility] LABCLIA [id number] [place] [address] [place] Creatinine [Mass/Vol] 0.91 mg/dL Normal 0.58-0.96 [facility] Comment on above: Order Comment: Speci men Type: BLOOD SPECIMENOrdering Facility: [facility] Address: [address] [place], [place] [address] Performed By: #### 2 4323-8, , 2776-06 ####[facility] LABCLIA [id number] [address] [address] [place] Creatinine and Glomerular filtration rate.predicted panel (S/P/Bld) 81 mL/min/1.73m??? Normal >=60 [facility] Comment on above: Order Comment: Speci men Type: BLOOD SPECIMENOrdering Facility: [facility] Address: [address] [place] [id number] Result Comment: Zeny mated Glomerular Filtration Rate [...] Performed By: #### 2 4323-8, , 2776-06 ####[facility] LABIA [id number] [place] [address] [place] Glucose [Mass/Vol] 112 mg/dL High 74-99 [facility] Comment on above: Order Comment: Dora finch Type: BLOOD SPECIMENOrdering Facility: [facility] Address: [address] [place] [address] Result Comment: The [place] [employer] (ADA) provides guidance for cutoff [...] Standards of Medical Care in Diabetes 2016, [place] [employer]. Diabetes Care. 2016.39(Suppl 1). Performed By: #### 2 4323-8, , 2776-06 ####[facility] LABIA [id number] [place] [id number] [place] Potassium [Moles/Vol] 4.0 mmol/L Normal 3.7-5.1 [facility] Comment on above: Order Comment: Dora finch Type: BLOOD SPECIMENOrdering Facility: [facility] Address: [address] [place] [address] Performed By: #### 2 4323-8, 05777-4, 2777-1 ####[facility] LABIA [id number] [place] [id number] [place] Protein [Mass/Vol] 6.8 g/dL Normal 6.3-8.0 [facility] Comment on above: Order Comment: Speci men Type: BLOOD SPECIMENOrdering Facility: [facility] Address: [address] [place] [address] Performed By: #### 2 4323-8, 84140-0, 2771 ####[facility] LABIA [id number] [place] [address] [place] Sodium [Moles/Vol] 137 mmol/L Normal 136-144 [facility] Comment on above: Order Comment: Speci men Type: BLOOD SPECIMENOrdering Facility: [facility] Address: [address] [place] [address] Performed By: #### 2 4323-8, 98733-2, 2771 ####[facility] [id number] [place] [address] [place] Urea nitrogen [Mass/Vol] 14 mg/dL Normal 7-21 [facility] Comment on above: Order Comment: Speci men Type: BLOOD SPECIMENOrdering Facility: [facility] Address: [address] [place] [address] Performed By: #### 2 4323-8, 92352-2, 2777-1 ####[facility] [id number] [place] [id number] [place] Fact Xa PPP-aCncon 5 Coagulation factor X activated act Coag Qn (PPP) 0.76 IU/mL High <0.10 [facility] Comment on above: Order Comment: Speci men Type: BLOOD SPECIMENOrdering Facility: [facility] Address: [address] [place] [address] Result Comment: The recommended therapeutic range for treatment of venous and arterial thrombosis with intravenous unfractionated heparin is an anti Xa activity level of 0.3 to 0.7 IU/mL. In patients with concomitant therapy with thrombolytic agents and/or platelet glycoprotein IIb/IIIa antagonists, the recommended therapeutic range is an anti Xa activity level of 0.2 to 0.5 IU/mL. Performed By: #### 3 217-7 ####[facility] LABIA [id number] [place] [address] [place] Coagulation factor X activated act Coag Qn (PPP) 0.55 IU/mL High <0.10 [facility] Comment on above: Order Comment: Speci men Type: BLOOD SPECIMENOrdering Facility: [facility] Address: [address] [place] [address] Result Comment: The recommended therapeutic range for treatment of venous and arterial thrombosis with intravenous unfractionated heparin is an anti Xa activity level of 0.3 to 0.7 IU/mL. In patients with concomitant therapy with thrombolytic agents and/or platelet glycoprotein IIb/IIIa antagonists, the recommended therapeutic range is an anti Xa activity level of 0.2 to 0.5 IU/mL. Performed By: #### P TTAC, 3217-7 ####[facility] [id number] [place] [address] [place] IR PICC INSERT PHYSICIANon 0 12-08-2024 IR PICC INSERT PHYSICIAN Normal [facility] Magnesium SerPl-mCncon 12-08 Magnesium [Mass/Vol] 1.9 mg/dL Normal 1.7-2.3 [facility] Comment on above: Order Comment: Speci men Type: BLOOD SPECIMENOrdering Facility: [facility] Address: [address] [place] [address] Performed By: #### 2 4323-8, 24182-9, 2777-1 ####[facility] LABIA [id number] [place] [address] [place] PTT, ANTICOAGULANT THERAPYon 12-08-2024 aPTT Coag (PPP) [Time] 37.0 s High 23.0-32.4 [facility] Comment on above: Order Comment: Speci men Type: BLOOD SPECIMENOrdering Facility: [facility] Address: [address] [place] [address] Performed By: #### P TTAC ####[facility] LABCLIA [id number] [place] [address] [place] aPTT Coag (PPP) [Time] 94.6 s High 23.0-32.4 [facility] Comment on above: Order Comment: Speci men Type: BLOOD SPECIMENOrdering Facility: [facility] Address: [address] [place] [address] Performed By: #### P TTAC ####[facility] LABCLIA [id number] [place] [address] [place] aPTT Coag (PPP) [Time] 88.0 s High 23.0-32.4 [facility] Comment on above: Order Comment: Speci men Type: BLOOD SPECIMENOrdering Facility: [facility] Address: [address] [place] [address] Performed By: #### P TTAC ####[facility] LABCLIA [id number] [address] [place] aPTT Coag (PPP) [Time] 56.3 s High 23.0-32.4 [facility] Comment on above: Order Comment: Speci men Type: BLOOD SPECIMENOrdering Facility: [facility] Address: [address] [place] [address] Performed By: #### P TTAC, 3217-7 ####[facility] LABCLIA [id number] [place] [address] [place] Phosphate SerPl-mCncon 12-08 Phosphate [Mass/Vol] 4.5 mg/dL Normal 2.7-4.8 [facility] Comment on above: Order Comment: Speci men Type: BLOOD SPECIMENOrdering Facility: [facility] Address: [address] [place] [address] Performed By: #### 2 4323-8, 58955-0, 2777-1 ####[facility] LABCLIA [id number] [address] [place] [address] [place] ALLIED HEALTHon 12-07-2024 ALLIED HEALTH Normal [facility] CBC panel Auto (Bld)on 12-07 Erythrocyte distribution width (RBC) [Ratio] 20.2 % High 11.5-15.0 [facility] Comment on above: Order Comment: Speci men Type: BLOOD SPECIMENOrdering Facility: [facility] Address: [address] [place] [address] Performed By: #### 5 8410-2 ####[facility] LABCLIA [id number] [address] [place] Hematocrit (Bld) [Volume fraction] 28.3 % Low 36.0-46.0 [facility] Comment on above: Order Comment: Speci men Type: BLOOD SPECIMENOrdering Facility: [facility] Address: [address] [place] [address] Performed By: #### 5 8410-2 ####[facility] LABCLIA [id number] [address] [place] [address] [place] Hemoglobin (Bld) [Mass/Vol] 9.0 g/dL Low 11.5-15.5 [facility] Comment on above: Order Comment: Speci men Type: BLOOD SPECIMENOrdering Facility: [facility] Address: [address] [place] [address] Performed By: #### 5 8410-2 ####[facility] LABCLIA [id number] [address], [facility] [place] MCH (RBC) [Entitic mass] 26.5 pg Normal 26.0-34.0 [facility] Comment on above: Order Comment: Speci men Type: BLOOD SPECIMENOrdering Facility: [facility] Address: [address] [place] [address] Performed By: #### 5 8410-2 ####[facility] LABCLIA [id number] [address] [place] MCHC (RBC) [Mass/Vol] 31.8 g/dL Normal 30.5-36.0 [facility] Comment on above: Order Comment: Speci men Type: BLOOD SPECIMENOrdering Facility: [facility] Address: [address] [place] [address] Performed By: #### 5 8410-2 ####[facility] LABCLIA [id number] [place] [address] [place] MCV (RBC) [Entitic vol] 83.2 fL Normal 80.0-100.0 [facility] Comment on above: Order Comment: Speci men Type: BLOOD SPECIMENOrdering Facility: [facility] Address: [address] [place] [address] Performed By: #### 5 8410-2 ####[facility] LABCLIA [id number] [place] [address] [place] Nucleated RBC (Bld) [#/Vol] 10*3/uL Normal <0.01 [facility] Comment on above: Order Comment: Speci men Type: BLOOD SPECIMENOrdering Facility: [facility] Address: [address] [place] [address] Performed By: #### 5 8410-2 ####[facility] LABCLIA [id number] [place] [address] [place] Platelet mean volume (Bld) [Entitic vol] 10.0 fL Normal 9.0-12.7 [facility] Comment on above: Order Comment: Speci men Type: BLOOD SPECIMENOrdering Facility: [facility] Address: [address] [place] [address] Performed By: #### 5 8410-2 ####[facility] LABCLIA [id number] [address] [address] [place] Platelets (Bld) [#/Vol] 414 10*3/uL High 150-400 [facility] Comment on above: Order Comment: Speci men Type: BLOOD SPECIMENOrdering Facility: [facility] Address: [address] [place] [address] Performed By: #### 5 8410-2 ####[facility] [id number] [place] [address] [place] RBC (Bld) [#/Vol] 3.40 10*6/uL Low 3.90-5.20 [facility] Comment on above: Order Comment: Speci men Type: BLOOD SPECIMENOrdering Facility: [facility] Address: [address] [place] [address] Performed By: #### 5 8410-2 ####[facility] [id number] [place] [address] [place] WBC (Bld) [#/Vol] 7.16 10*3/uL Normal 3.70-11.00 [facility] Comment on above: Order Comment: Speci men Type: BLOOD SPECIMENOrdering Facility: [facility] Address: [address] [place] [address] Performed By: #### 5 8410-2 ####[facility] [id number] [place] [id number] [place] CONSULT PROGon 12-07-2024 CONSULT PROG Normal [facility] Comprehensive metabolic 2000 panelon 12-07-2024 Albumin [Mass/Vol] 3.3 g/dL Low 3.9-4.9 [facility] Comment on above: Order Comment: Speci men Type: BLOOD SPECIMENOrdering Facility: [facility] Address: [address] [place] [address] Performed By: #### 2 4323-8, 04397-8, 2777-1 ####[facility] LABCLIA [id number] [address] [place] [address] [place] ALP [Catalytic activity/Vol] 185 U/L High 34-123 [facility] Comment on above: Order Comment: Speci men Type: BLOOD SPECIMENOrdering Facility: [facility] Address: [address] [place] [address] Performed By: #### 2 4323-8, , 2776- ####[facility] LABCLIA [id number] [address] [address] [place] ALT [Catalytic activity/Vol] 53 U/L High 7-38 [facility] Comment on above: Order Comment: Speci men Type: BLOOD SPECIMENOrdering Facility: [facility] Address: [address] [place] [address] Performed By: #### 2 4323-8, , 2776- ####[facility] LABCLIA [id number] [place] [id number] [place] Anion gap [Moles/Vol] 16 mmol/L High 8-15 [facility] Comment on above: Order Comment: Speci men Type: BLOOD SPECIMENOrdering Facility: [facility] Address: [address] [place] [address] Performed By: #### 2 4323-8, , 2776- ####[facility] LABCLIA [id number] [place] [id number] [place] AST [Catalytic activity/Vol] 40 U/L High 13-35 [facility] Comment on above: Order Comment: Speci men Type: BLOOD SPECIMENOrdering Facility: [facility] Address: [address] [place] [address] Performed By: #### 2 4323-8, , 2776- ####[facility] LABCLIA [id number] [address] [address] [place] Bilirubin [Mass/Vol] 0.6 mg/dL Normal 0.2-1.3 [facility] Comment on above: Order Comment: Speci men Type: BLOOD SPECIMENOrdering Facility: [facility] Address: [address] [place] [address] Performed By: #### 2 4323-8, , 2776-06 ####[facility] LABCLIA [id number] [address] [place] [address] [place] Calcium [Mass/Vol] 9.0 mg/dL Normal 8.5-10.2 [facility] Comment on above: Order Comment: Speci men Type: BLOOD SPECIMENOrdering Facility: [facility] Address: [address] [place] [address] Performed By: #### 2 4323-8, , 2776-06 ####[facility] LABCLIA [id number] [place] [address] [place] Chloride [Moles/Vol] 101 mmol/L Normal 98-107 [facility] Comment on above: Order Comment: Speci men Type: BLOOD SPECIMENOrdering Facility: [facility] Address: [address] [place] [address] Performed By: #### 2 4323-8, , 2776-06 ####[facility] LABCLIA [id number] [address], [facility]95 [place] CO2 [Moles/Vol] 21 mmol/L Low 22-30 [facility] Comment on above: Order Comment: Speci men Type: BLOOD SPECIMENOrdering Facility: [facility] Address: [address] [place] [address] Performed By: #### 2 4323-8, , 2776-06 ####[facility] LABCLIA [id number] [facility] [address] [place] [address] [place] Creatinine [Mass/Vol] 1.04 mg/dL High 0.58-0.96 [facility] Comment on above: Order Comment: Dora finch Type: BLOOD SPECIMENOrdering Facility: [facility] Address: [address] [place] [address] Performed By: #### 2 4323-8, 11456-1, 2776-06 ####[facility] LABCLIA [id number] [place] [address] [place] Creatinine and Glomerular filtration rate.predicted panel (S/P/Bld) 69 mL/min/1.73m??? Normal >=60 [facility] Comment on above: Order Comment: Dora finch Type: BLOOD SPECIMENOrdering Facility: [facility] Address: [address] [place] [address] Result Comment: Zeny mated Glomerular Filtration Rate [...] Performed By: #### 2 4323-8, , 2776-06 ####[facility] LABCLIA [id number] [place] [id number] [place] Glucose [Mass/Vol] 178 mg/dL High 74-99 [facility] Comment on above: Order Comment: Dora finch Type: BLOOD SPECIMENOrdering Facility: [facility] Address: [address] [place] [address] Result Comment: The [place] [employer] (ADA) provides guidance for cutoff [...] Standards of Medical Care in Diabetes 2016, [place] [employer]. Diabetes Care. 2016.39(Suppl 1). Performed By: #### 2 4323-8, , 2776-06 ####[facility] LABCLIA [id number] [address] [address] [place] Potassium [Moles/Vol] 3.3 mmol/L Low 3.7-5.1 [facility] Comment on above: Order Comment: Speci men Type: BLOOD SPECIMENOrdering Facility: [facility] Address: [address] [place], [place] [address] Performed By: #### 2 4323-8, , 2776-06 ####[facility] LABCLIA [id number] [address] [address] [place] Protein [Mass/Vol] 7.0 g/dL Normal 6.3-8.0 [facility] Comment on above: Order Comment: Speci men Type: BLOOD SPECIMENOrdering Facility: [facility] Address: [address] [place] [address] Performed By: #### 2 4323-8, , 2776-06 ####[facility] LABIA [id number] [address] [address] [place] Sodium [Moles/Vol] 138 mmol/L Normal 136-144 [facility] Comment on above: Order Comment: Speci men Type: BLOOD SPECIMENOrdering Facility: [facility] Address: [address] [place] [address] Performed By: #### 2 4323-8, , 2776-06 ####[facility] LABCLIA [id number] [address] [address] [place] Urea nitrogen [Mass/Vol] 11 mg/dL Normal 7-21 [facility] Comment on above: Order Comment: Speci men Type: BLOOD SPECIMENOrdering Facility: [facility] Address: [address] [place], [place] [address] Performed By: #### 2 4323-8, 70269-3, 2777-1 ####[facility] [id number] [place] [id number] [place] Fact Xa PPP-aCncon Coagulation factor X activated act Coag Qn (PPP) 0.31 IU/mL High <0.10 [facility] Comment on above: Order Comment: Speci men Type: BLOOD SPECIMENOrdering Facility: [facility] Address: [address] [place] [address] Result Comment: The recommended therapeutic range for treatment of venous and arterial thrombosis with intravenous unfractionated heparin is an anti Xa activity level of 0.3 to 0.7 IU/mL. In patients with concomitant therapy with thrombolytic agents and/or platelet glycoprotein IIb/IIIa antagonists, the recommended therapeutic range is an anti Xa activity level of 0.2 to 0.5 IU/mL. Performed By: #### 3 217-7 ####[facility] [id number] [place] [id number] [place] Magnesium SerPl-mCncon 12-07 Magnesium [Mass/Vol] 2.0 mg/dL Normal 1.7-2.3 [facility] Comment on above: Order Comment: Florii men Type: BLOOD SPECIMENOrdering Facility: [facility] Address: [address] [place], [place] [address] Performed By: #### 2 4323-8, 40926-7, 2777-1 ####[facility] [id number] [address] [address] [place] NUTRITIONon 12-07-2024 NUTRITION Normal [facility] PTT, ANTICOAGULANT THERAPYon 12-07-2024 aPTT Coag (PPP) [Time] 47.4 s High 23.0-32.4 [facility] Comment on above: Order Comment: Speci men Type: BLOOD SPECIMENOrdering Facility: [facility] Address: [address] [place] [address] Performed By: #### P TTAC ####[facility] LABCLIA [id number] [place] [id number] [place] aPTT Coag (PPP) [Time] 41.6 s High 23.0-32.4 [facility] Comment on above: Order Comment: Speci men Type: BLOOD SPECIMENOrdering Facility: [facility] Address: [address] [place] [address] Result Comment: Inte rpret with caution. Sample centrifuged greater than 1 hour from collection time. According to Clinical and Laboratory Standards [place] guidelines, results could be falsely decreased due to heparin neutralization by in vitro release of platelet factor 4. Suggest correlation with clinical findings and redraw if indicated. Performed By: #### P TTAC ####[facility] LABCLIA [id number] [place] [id number] [place] Phosphate SerPl-mCncon 12-07 Phosphate [Mass/Vol] 4.5 mg/dL Normal 2.7-4.8 [facility] Comment on above: Order Comment: Speci men Type: BLOOD SPECIMENOrdering Facility: [facility] Address: [address] [place] [address] Performed By: #### 2 4323-8, 56786-7, 2777-1 ####[facility] LABIA [id number] [place] [address] [place] ALLIED HEALTHon 12-06-2024 ALLIED HEALTH Normal [facility] ALLIED HEALTH Normal [facility] ANES POSTPROC EVALon 025 ANES POSTPROC EVAL Normal [facility] ANES PRE-OPon 12-06-2024 ANES PRE-OP Normal [facility] CASE MANAGEMon 12-06-2024 CASE MANAGEM Normal [facility] CBC panel Auto (Bld)on 12-06 Erythrocyte distribution width (RBC) [Ratio] 19.8 % High 11.5-15.0 [facility] Comment on above: Order Comment: Speci men Type: BLOOD SPECIMENOrdering Facility: [facility] Address: [address] [place] [address] Performed By: #### 5 8410-2 ####[facility] [id number] [place] [address] [place] Hematocrit (Bld) [Volume fraction] 19.8 % Low 36.0-46.0 [facility] Comment on above: Order Comment: Speci men Type: BLOOD SPECIMENOrdering Facility: [facility] Address: [address] [place] [address] Performed By: #### 5 8410-2 ####[facility] [id number] [place] [address] [place] Hemoglobin (Bld) [Mass/Vol] 6.3 g/dL Low 11.5-15.5 [facility] Comment on above: Order Comment: Speci men Type: BLOOD SPECIMENOrdering Facility: [facility] Address: [address] [place] [address] Performed By: #### 5 8410-2 ####[facility] [id number] [place] [address] [place] MCH (RBC) [Entitic mass] 26.1 pg Normal 26.0-34.0 [facility] Comment on above: Order Comment: Speci men Type: BLOOD SPECIMENOrdering Facility: [facility] Address: [address] [place] [address] Performed By: #### 5 8410-2 ####[facility] [id number] [place] [address] [place] MCHC (RBC) [Mass/Vol] 31.8 g/dL Normal 30.5-36.0 [facility] Comment on above: Order Comment: Speci men Type: BLOOD SPECIMENOrdering Facility: [facility] Address: [address] [place] [address] Performed By: #### 5 8410-2 ####[facility] [id number] [address] [place] [address] [place] MCV (RBC) [Entitic vol] 82.2 fL Normal 80.0-100.0 [facility] Comment on above: Order Comment: Speci men Type: BLOOD SPECIMENOrdering Facility: [facility] Address: [address] [place] [address] Performed By: #### 5 8410-2 ####[facility] [id number] [address], [place] [address] [place] Nucleated RBC (Bld) [#/Vol] 10*3/uL Normal <0.01 [facility] Comment on above: Order Comment: Speci men Type: BLOOD SPECIMENOrdering Facility: [facility] Address: [address] [place] [address] Performed By: #### 5 8410-2 ####[facility] [id number] [address], [place] [address] [place] Platelet mean volume (Bld) [Entitic vol] 8.9 fL Low 9.0-12.7 [facility] Comment on above: Order Comment: Speci men Type: BLOOD SPECIMENOrdering Facility: [facility] Address: [address] [place] [address] Performed By: #### 5 8410-2 ####[facility] [id number] [place] [address] [place] Platelets (Bld) [#/Vol] 496 10*3/uL High 150-400 [facility] Comment on above: Order Comment: Speci men Type: BLOOD SPECIMENOrdering Facility: [facility] Address: [address] [place] [address] Performed By: #### 5 8410-2 ####[facility] [id number] [address], [place] [address] [place] RBC (Bld) [#/Vol] 2.41 10*6/uL Low 3.90-5.20 [facility] Comment on above: Order Comment: Speci men Type: BLOOD SPECIMENOrdering Facility: [facility] Address: [address] [place] [address] Performed By: #### 5 8410-2 ####[facility] [id number] [place] [address] [place] WBC (Bld) [#/Vol] 8.40 10*3/uL Normal 3.70-11.00 [facility] Comment on above: Order Comment: Speci men Type: BLOOD SPECIMENOrdering Facility: [facility] Address: [address] [place] [address] Performed By: #### 5 8410-2 ####[facility] [id number] [place] [address] [place] Erythrocyte distribution width (RBC) [Ratio] 19.0 % High 11.5-15.0 [facility] Comment on above: Order Comment: Speci men Type: BLOOD SPECIMENOrdering Facility: [facility] Address: [address] [place] [address] Performed By: #### 5 8410-2 ####[facility] [id number] [place] [address] [place] Hematocrit (Bld) [Volume fraction] 29.1 % Low 36.0-46.0 [facility] Comment on above: Order Comment: Speci men Type: BLOOD SPECIMENOrdering Facility: [facility] Address: [address] [place] [address] Performed By: #### 5 8410-2 ####[facility] [id number] [place] [id number] [place] Hemoglobin (Bld) [Mass/Vol] 9.1 g/dL Low 11.5-15.5 [facility] Comment on above: Order Comment: Speci men Type: BLOOD SPECIMENOrdering Facility: [facility] Address: [address] [place] [address] Performed By: #### 5 8410-2 ####[facility] [id number] [place] [address] [place] MCH (RBC) [Entitic mass] 25.7 pg Low 26.0-34.0 [facility] Comment on above: Order Comment: Speci men Type: BLOOD SPECIMENOrdering Facility: [facility] Address: [address] [place] [address] Performed By: #### 5 8410-2 ####[facility] [id number] [place] [address] [place] MCHC (RBC) [Mass/Vol] 31.3 g/dL Normal 30.5-36.0 [facility] Comment on above: Order Comment: Speci men Type: BLOOD SPECIMENOrdering Facility: [facility] Address: [address] [place] [address] Performed By: #### 5 8410-2 ####[facility] [id number] [place] [address] [place] MCV (RBC) [Entitic vol] 82.2 fL Normal 80.0-100.0 [facility] Comment on above: Order Comment: Speci men Type: BLOOD SPECIMENOrdering Facility: [facility] Address: [address] [place] [address] Performed By: #### 5 8410-2 ####[facility] [id number] [place] [address] [place] Nucleated RBC (Bld) [#/Vol] 10*3/uL Normal <0.01 [facility] Comment on above: Order Comment: Speci men Type: BLOOD SPECIMENOrdering Facility: [facility] Address: [address] [place] [address] Performed By: #### 5 8410-2 ####[facility] [id number] [place] [address] [place] Platelet mean volume (Bld) [Entitic vol] 9.3 fL Normal 9.0-12.7 [facility] Comment on above: Order Comment: Speci men Type: BLOOD SPECIMENOrdering Facility: [facility] Address: [address] [place] [address] Performed By: #### 5 8410-2 ####[facility] [id number] [address], [place] [address] [place] Platelets (Bld) [#/Vol] 474 10*3/uL High 150-400 [facility] Comment on above: Order Comment: Speci men Type: BLOOD SPECIMENOrdering Facility: [facility] Address: [address] [place] [address] Performed By: #### 5 8410-2 ####[facility] [id number] [place] [address] [place] RBC (Bld) [#/Vol] 3.54 10*6/uL Low 3.90-5.20 [facility] Comment on above: Order Comment: Speci men Type: BLOOD SPECIMENOrdering Facility: [facility] Address: [address] [place] [address] Performed By: #### 5 8410-2 ####[facility] [id number] [place] [address] [place] WBC (Bld) [#/Vol] 8.80 10*3/uL Normal 3.70-11.00 [facility] Comment on above: Order Comment: Speci men Type: BLOOD SPECIMENOrdering Facility: [facility] Address: [address] [place] [address] Performed By: #### 5 8410-2 ####[facility] [id number] [place] [id number] [place] CK SerPl-cCncon 12-06-2024 CK [Catalytic activity/Vol] 9 U/L Low 42-196 [facility] Comment on above: Order Comment: Speci men Type: BLOOD SPECIMENOrdering Facility: [facility] Address: [address] [place] [address] Performed By: #### 2 157-6, 83715-1, 45397-0, 2777-1 ####[facility] [id number] [place] [id number] [place] CONSULT PROGon 12-06-[address] [facility] metabolic 2000 panelon 12-06-2024 Albumin [Mass/Vol] 3.3 g/dL Low 3.9-4.9 [facility] Comment on above: Order Comment: Speci men Type: BLOOD SPECIMENOrdering Facility: [facility] Address: [address] [place] [address] Performed By: #### 2 157-6, 11543-3, 74113-6, 2776- ####[facility] [id number] [place] [address] [place] ALP [Catalytic activity/Vol] 191 U/L High 34-123 [facility] Comment on above: Order Comment: Speci men Type: BLOOD SPECIMENOrdering Facility: [facility] Address: [address] [place] [address] Performed By: #### 2 157-6, 17388-3, 54709-1, 2776- ####[facility] [id number] [place] [id number] [place] ALT [Catalytic activity/Vol] 44 U/L High 7-38 [facility] Comment on above: Order Comment: Speci men Type: BLOOD SPECIMENOrdering Facility: [facility] Address: [address] [place] [address] Performed By: #### 2 157-6, 46582-2, 86835-6, 2777-1 ####[facility] [id number] [place] [id number] [place] Anion gap [Moles/Vol] 12 mmol/L Normal 8-15 [facility] Comment on above: Order Comment: Speci men Type: BLOOD SPECIMENOrdering Facility: [facility] Address: [address] [place] [address] Performed By: #### 2 157-6, 05687-3, 40237-8, 2777-1 ####[facility]CL[facility] [id number] [place] [id number] [place] AST [Catalytic activity/Vol] 36 U/L High 13-35 [facility] Comment on above: Order Comment: Speci men Type: BLOOD SPECIMENOrdering Facility: [facility] Address: [address] [place] [address] Performed By: #### 2 157-6, 12133-2, 33768-7, 2776-1 ####[facility] [id number] [place] [id number] [place] Bilirubin [Mass/Vol] 0.7 mg/dL Normal 0.2-1.3 [facility] Comment on above: Order Comment: Speci men Type: BLOOD SPECIMENOrdering Facility: [facility] Address: [address] [place] [address] Performed By: #### 2 157-6, 81471-5, 55796-0, 2776-1 ####[facility]CL[facility] [id number] [place] [id number] [place] Calcium [Mass/Vol] 8.8 mg/dL Normal 8.5-10.2 [facility] Comment on above: Order Comment: Speci men Type: BLOOD SPECIMENOrdering Facility: [facility] Address: [address] [place] [address] Performed By: #### 2 157-6, 10136-8, 76843-5, 2776-1 ####[facility] [id number] [place] [id number] [place] Chloride [Moles/Vol] 102 mmol/L Normal 98-107 [facility] Comment on above: Order Comment: Speci men Type: BLOOD SPECIMENOrdering Facility: [facility] Address: [address] [place], [place] [id number] Performed By: #### 2 157-6, 84334-6, 23504-0, 2777-1 ####[facility] [id number] [place] [id number] [place] CO2 [Moles/Vol] 22 mmol/L Normal 22-30 [facility] Comment on above: Order Comment: Speci men Type: BLOOD SPECIMENOrdering Facility: [facility] Address: [address] [place] [address] Performed By: #### 2 157-6, 67050-4, 33878-1, 2777-1 ####[facility] [id number] [place] [id number] [place] Creatinine [Mass/Vol] 0.95 mg/dL Normal 0.58-0.96 [facility] Comment on above: Order Comment: Speci men Type: BLOOD SPECIMENOrdering Facility: [facility] Address: [address] [place] [address] Performed By: #### 2 157-6, 08797-0, 71851-6, 2777-1 ####[facility] [id number] [place] [id number] [place] Creatinine and Glomerular filtration rate.predicted panel (S/P/Bld) 77 mL/min/1.73m??? Normal >=60 [facility] Comment on above: Order Comment: Speci men Type: BLOOD SPECIMENOrdering Facility: [facility] Address: [address] [place] [address] Result Comment: Zeny mated Glomerular Filtration Rate [...] actual GFR. Performed By: #### 2 157-6, 95885-4, 20426-7, 2776- ####[facility]CL[facility] [id number] [address] [address] [place] Glucose [Mass/Vol] 136 mg/dL High 74-99 [facility] Comment on above: Order Comment: Dora finch Type: BLOOD SPECIMENOrdering Facility: [facility] Address: [address] [place] [address] Result Comment: The [place] [employer] (ADA) provides guidance for cutoff [...] Standards of Medical Care in Diabetes 2016, [place] [employer]. Diabetes Care. 2016.39(Suppl 1). Performed By: #### 2 157-6, 59621-2, , 2776-06 ####[facility] [id number] [address] [address] [place] Potassium [Moles/Vol] 3.8 mmol/L Normal 3.7-5.1 [facility] Comment on above: Order Comment: Dora finch Type: BLOOD SPECIMENOrdering Facility: [facility] Address: [address] [place] [address] Performed By: #### 2 157-6, 51851-7, 83681-9, 2776- ####[facility]CL[facility] [id number] [place] [id number] [place] Protein [Mass/Vol] 6.6 g/dL Normal 6.3-8.0 [facility] Comment on above: Order Comment: Speci men Type: BLOOD SPECIMENOrdering Facility: [facility] Address: [address] [place] [address] Performed By: #### 2 157-6, 81214-6, 62109-1, 2777-1 ####[facility]CL[facility] [id number] [place] [address] [place] Sodium [Moles/Vol] 136 mmol/L Normal 136-144 [facility] Comment on above: Order Comment: Speci men Type: BLOOD SPECIMENOrdering Facility: [facility] Address: [address] [place] [address] Performed By: #### 2 157-6, 50556-2, 80007-7, 2777-1 ####[facility]CL[facility] [id number] [place] [address] [place] Urea nitrogen [Mass/Vol] 12 mg/dL Normal 7-21 [facility] Comment on above: Order Comment: Speci men Type: BLOOD SPECIMENOrdering Facility: [facility] Address: [address] [place] [address] Performed By: #### 2 157-6, 19612-0, 37198-2, 2777-1 ####[facility] LABIA [id number] [place] [id number] [place] Fact Xa PPP-aCncon 5 Coagulation factor X activated act Coag Qn (PPP) 0.64 IU/mL High <0.10 [facility] Comment on above: Order Comment: Speci men Type: BLOOD SPECIMENOrdering Facility: [facility] Address: [address] [place] [address] Result Comment: The recommended therapeutic range for treatment of venous and arterial thrombosis with intravenous unfractionated heparin is an anti Xa activity level of 0.3 to 0.7 IU/mL. In patients with concomitant therapy with thrombolytic agents and/or platelet glycoprotein IIb/IIIa antagonists, the recommended therapeutic range is an anti Xa activity level of 0.2 to 0.5 IU/mL. Performed By: #### 3 217-7 ####[facility] [id number] [place] [id number] [place] Coagulation factor X activated act Coag Qn (PPP) 0.48 IU/mL High <0.10 [facility] Comment on above: Order Comment: Dora finch Type: BLOOD SPECIMENOrdering Facility: [facility] Address: [address] [place] [address] Result Comment: The recommended therapeutic range for treatment of venous and arterial thrombosis with intravenous unfractionated heparin is an anti Xa activity level of 0.3 to 0.7 IU/mL. In patients with concomitant therapy with thrombolytic agents and/or platelet glycoprotein IIb/IIIa antagonists, the recommended therapeutic range is an anti Xa activity level of 0.2 to 0.5 IU/mL. Performed By: #### 3 217-7 ####[facility] [id number] [place] [address] [place] HISTORY PHYSICALon HISTORY PHYSICAL Normal [facility] Magnesium SerPl-mCncon 12-06 Magnesium [Mass/Vol] 1.5 mg/dL Low 1.7-2.3 [facility] Comment on above: Order Comment: Dora finch Type: BLOOD SPECIMENOrdering Facility: [facility] Address: [address] [place] [address] Performed By: #### 2 157-6, 00140-4, 36095-7, 2777-1 ####[facility] [id number] [place] [id number] [place] NUTRITIONon 12-06-2024 NUTRITION Normal [facility] PT EDon 12-06-2024 PT ED Normal [facility] PT panel Coag (PPP)on 2024 INR Coag (PPP) [Relative time] 1.1 {INR} Normal 0.9-1.3 [facility] Comment on above: Order Comment: Dora finch Type: BLOOD SPECIMENOrdering Facility: [facility] Address: [address] [place] [address] Result Comment: Yamileth min K Antagonist (VKA) Therapeutic Range: INR 2 to 3 (Target INR of 2.5)Note: For patients treated with VKA drugs, such as warfarin, the [place] [employer] 2012 Guideline recommends [...] al. Chest 2012, 141:7S-47SNishimcindy RA, et al. [facility] 2017, 70: 252-289 Performed By: #### 3 4528-0, 29613-4 ####[facility] [id number] [place] [address] [place] PT Coag (PPP) [Time] 11.9 s Normal 9.7-13.0 [facility] Comment on above: Order Comment: Dora finch Type: BLOOD SPECIMENOrdering Facility: [facility] Address: [address] [place] [id number] Performed By: #### 3 4528-0, 97928-9 ####[facility] [id number] [place] [id number] [place] PTT, ANTICOAGULANT THERAPYon 12-06-2024 aPTT Coag (PPP) [Time] 58.4 s High 23.0-32.4 [facility] Comment on above: Order Comment: Dora finch Type: BLOOD SPECIMENOrdering Facility: [facility] Address: [address] [place] [address] Performed By: #### P TTAC ####[facility] [id number] [place] [address] [place] Phosphate SerPl-mCncon 12-06 Phosphate [Mass/Vol] 2.8 mg/dL Normal 2.7-4.8 [facility] Comment on above: Order Comment: Speci men Type: BLOOD SPECIMENOrdering Facility: [facility] Address: [address] [place] [address] Performed By: #### 2 157-6, 64703-2, 34237-3, 2777-1 ####[facility] [id number] [place] [address] [place] aPTT PPPon 12-06-2024 aPTT Coag (PPP) [Time] 53.0 s High 23.0-32.4 [facility] Comment on above: Order Comment: Speci men Type: BLOOD SPECIMENOrdering Facility: [facility] Address: [address] [place] [address] Performed By: #### 3 4528-0, 98794-0 ####[facility] [id number] [place] [id number] [place] ALLIED HEALTHon 12-05-2024 ALLIED HEALTH Normal [facility] ANES POSTPROC EVALon 025 ANES POSTPROC EVAL Normal [facility] ANES PRE-OPon 12-05-2024 ANES PRE-OP Normal [facility] CASE MANAGEMon 12-05-2024 CASE MANAGEM Normal [facility] CBC panel Auto (Bld)on 12-05 Hematocrit (Bld) [Volume fraction] 29.6 % Low 36.0-46.0 [facility] Comment on above: Order Comment: Speci men Type: BLOOD SPECIMENOrdering Facility: [facility] Address: [address] [place] [address] Performed By: #### 5 8410-2 ####[facility] [id number] [place] [address] [place] Hemoglobin (Bld) [Mass/Vol] 9.0 g/dL Low 11.5-15.5 [facility] Comment on above: Order Comment: Speci men Type: BLOOD SPECIMENOrdering Facility: [facility] Address: [address] [place] [address] Performed By: #### 5 8410-2 ####[facility] [id number] [place] [address] [place] MCH (RBC) [Entitic mass] 25.4 pg Low 26.0-34.0 [facility] Comment on above: Order Comment: Speci men Type: BLOOD SPECIMENOrdering Facility: [facility] Address: [address] [place] [address] Performed By: #### 5 8410-2 ####[facility] [id number] [place] [address] [place] MCV (RBC) [Entitic vol] 83.4 fL Normal 80.0-100.0 [facility] Comment on above: Order Comment: Speci men Type: BLOOD SPECIMENOrdering Facility: [facility] Address: [address] [place] [address] Performed By: #### 5 8410-2 ####[facility] [id number] [place] [address] [place] Nucleated RBC (Bld) [#/Vol] 10*3/uL Normal <0.01 [facility] Comment on above: Order Comment: Speci men Type: BLOOD SPECIMENOrdering Facility: [facility] Address: [address] [place] [address] Performed By: #### 5 8410-2 ####[facility] [id number] [place] [address] [place] Platelets (Bld) [#/Vol] 438 10*3/uL High 150-400 [facility] Comment on above: Order Comment: Speci men Type: BLOOD SPECIMENOrdering Facility: [facility] Address: [address] [place] [address] Performed By: #### 5 8410-2 ####[facility] [id number] [place] [address] [place] RBC (Bld) [#/Vol] 3.55 10*6/uL Low 3.90-5.20 [facility] Comment on above: Order Comment: Speci men Type: BLOOD SPECIMENOrdering Facility: [facility] Address: [address] [place] [address] Performed By: #### 5 8410-2 ####[facility] [id number] [place] [address] [place] WBC (Bld) [#/Vol] 6.92 10*3/uL Normal 3.70-11.00 [facility] Comment on above: Order Comment: Speci men Type: BLOOD SPECIMENOrdering Facility: [facility] Address: [address] [place] [address] Performed By: #### 5 8410-2 ####[facility] [id number] [place] [address] [place] CONSULT PROGon 12-05-2024 CONSULT PROG Normal [facility] CONSULT PROG Normal [facility] CONSULT PROG Normal [facility] Comprehensive metabolic 2000 panelon 12-05-2024 Albumin [Mass/Vol] 3.4 g/dL Low 3.9-4.9 [facility] Comment on above: Order Comment: Speci men Type: BLOOD SPECIMENOrdering Facility: [facility] Address: [address] [place] [address] Performed By: #### 2 4323-8, 72088-4, 2777-1 ####[facility] [id number] [address] [address] [place] ALP [Catalytic activity/Vol] 189 U/L High 34-123 [facility] Comment on above: Order Comment: Speci men Type: BLOOD SPECIMENOrdering Facility: [facility] Address: [address] [place] [address] Performed By: #### 2 4323-8, 78018-9, 2776-06 ####[facility] [id number] [place] [id number] [place] ALT [Catalytic activity/Vol] 41 U/L High 7-38 [facility] Comment on above: Order Comment: Speci men Type: BLOOD SPECIMENOrdering Facility: [facility] Address: [address] [place] [address] Performed By: #### 2 4323-8, , 2776-06 ####[facility] [id number] [place] [address] [place] Anion gap [Moles/Vol] 12 mmol/L Normal 8-15 [facility] Comment on above: Order Comment: Speci men Type: BLOOD SPECIMENOrdering Facility: [facility] Address: [address] [place] [address] Performed By: #### 2 4323-8, , 2776-06 ####[facility]CLIA [id number] [place] [id number] [place] AST [Catalytic activity/Vol] 33 U/L Normal 13-35 [facility] Comment on above: Order Comment: Speci men Type: BLOOD SPECIMENOrdering Facility: [facility] Address: [address] [place] [address] Performed By: #### 2 4323-8, , 2776-06 ####[facility]CLIA [id number] [address] [place] [address] [place] Bilirubin [Mass/Vol] 0.8 mg/dL Normal 0.2-1.3 [facility] Comment on above: Order Comment: Speci men Type: BLOOD SPECIMENOrdering Facility: [facility] Address: [address] [place], [place] [id number] Performed By: #### 2 4323-8, , 2776-06 ####[facility]CL[facility] [id number] [facility] [address] [address] [place] Calcium [Mass/Vol] 9.7 mg/dL Normal 8.5-10.2 [facility] Comment on above: Order Comment: Speci men Type: BLOOD SPECIMENOrdering Facility: [facility] Address: [address] [place] [address] Performed By: #### 2 4323-8, , 2776-06 ####[facility] LABCLIA [id number] [place] [id number] [place] Chloride [Moles/Vol] 99 mmol/L Normal 98-107 [facility] Comment on above: Order Comment: Speci men Type: BLOOD SPECIMENOrdering Facility: [facility] Address: [address] [place], [place] [address] Performed By: #### 2 4323-8, , 2776-06 ####[facility] LABCLIA [id number] [facility] [address] [address] [place] CO2 [Moles/Vol] 25 mmol/L Normal 22-30 [facility] Comment on above: Order Comment: Speci men Type: BLOOD SPECIMENOrdering Facility: [facility] Address: [address] [place] [address] Performed By: #### 2 4323-8, , 2776-06 ####[facility] LABCLIA [id number] [facility] [address] [place] [address] [place] Creatinine [Mass/Vol] 0.93 mg/dL Normal 0.58-0.96 [facility] Comment on above: Order Comment: Speci men Type: BLOOD SPECIMENOrdering Facility: [facility] Address: [address] [place] [id number] Performed By: #### 2 4323-8, 47394-3, 2777-1 ####[facility] LABCLIA [id number] [place] [id number] [place] Creatinine and Glomerular filtration rate.predicted panel (S/P/Bld) 79 mL/min/1.73m??? Normal >=60 [facility] Comment on above: Order Comment: Dora stef Type: BLOOD SPECIMENOrdering Facility: [facility] Address: [address] [place] [address] Result Comment: Zeny mated Glomerular Filtration Rate [...] actual GFR. Performed By: #### 2 4323-8, 83260-7, 277-1 ####[facility] LABCLIA [id number] [place] [id number] [place] Glucose [Mass/Vol] 91 mg/dL Normal 74-99 [facility] Comment on above: Order Comment: Dora stef Type: BLOOD SPECIMENOrdering Facility: [facility] Address: [address] [place] [address] Result Comment: The [place] [employer] (ADA) provides guidance for cutoff [...] Standards of Medical Care in Diabetes 2016, [place] [employer]. Diabetes Care. 2016.39(Suppl 1). Performed By: #### 2 4323-8, 56047-3, 2776-06 ####[facility] LABCLIA [id number] [address] [address] [place] Potassium [Moles/Vol] 3.8 mmol/L Normal 3.7-5.1 [facility] Comment on above: Order Comment: Speci men Type: BLOOD SPECIMENOrdering Facility: [facility] Address: [address] [place], [place] [address] Performed By: #### 2 4323-8, , 2776-06 ####[facility] LABIA [id number] [address] [address] [place] Protein [Mass/Vol] 6.9 g/dL Normal 6.3-8.0 [facility] Comment on above: Order Comment: Speci men Type: BLOOD SPECIMENOrdering Facility: [facility] Address: [address] [place], [place] [address] Performed By: #### 2 4323-8, , 2776-06 ####[facility] LABIA [id number] [address] [address] [place] Sodium [Moles/Vol] 136 mmol/L Normal 136-144 [facility] Comment on above: Order Comment: Speci men Type: BLOOD SPECIMENOrdering Facility: [facility] Address: [address] [place] [address] Performed By: #### 2 4323-8, , 2776-06 ####[facility] LABCLIA [id number] [address] [address] [place] Urea nitrogen [Mass/Vol] 9 mg/dL Normal 7-21 [facility] Comment on above: Order Comment: Speci men Type: BLOOD SPECIMENOrdering Facility: [facility] Address: [address] [place] [address] Performed By: #### 2 4323-8, 65007-0, 2777-1 ####[facility] LABIA [id number] [place] [address] [place] Fact Xa PPP-aCncon 5 Coagulation factor X activated act Coag Qn (PPP) <0.10 Normal <0.10 [facility] Comment on above: Order Comment: Dora finch Type: BLOOD SPECIMENOrdering Facility: [facility] Address: [address] [place] [address] Result Comment: The recommended therapeutic range for treatment of venous and arterial thrombosis with intravenous unfractionated heparin is an anti Xa activity level of 0.3 to 0.7 IU/mL. In patients with concomitant therapy with thrombolytic agents and/or platelet glycoprotein IIb/IIIa antagonists, the recommended therapeutic range is an anti Xa activity level of 0.2 to 0.5 IU/mL. Performed By: #### 3 217-7, 20472-6, 75216-8 ####[facility] [id number] [address] [place] Coagulation factor X activated act Coag Qn (PPP) 0.91 IU/mL High <0.10 [facility] Comment on above: Order Comment: Dora finch Type: BLOOD SPECIMENOrdering Facility: [facility] Address: [address] [place] [address] Result Comment: The recommended therapeutic range for treatment of venous and arterial thrombosis with intravenous unfractionated heparin is an anti Xa activity level of 0.3 to 0.7 IU/mL. In patients with concomitant therapy with thrombolytic agents and/or platelet glycoprotein IIb/IIIa antagonists, the recommended therapeutic range is an anti Xa activity level of 0.2 to 0.5 IU/mL. Performed By: #### 3 217-7 ####[facility] LABIA [id number] [address] [place] Coagulation factor X activated act Coag Qn (PPP) >1.50 High <0.10 [facility] Comment on above: Order Comment: Dora finch Type: BLOOD SPECIMENOrdering Facility: [facility] Address: [address] [place] [address] Result Comment: Extr ruben high heparin anti-Xa [...] 0.5 IU/mL. Performed By: #### 3 217-7, 44491-2 ####[facility] LABCLIA [id number] [place] [address] [place] HISTORY PHYSICALon HISTORY PHYSICAL Normal [facility] Magnesium SerPl-mCncon 12-05 Magnesium [Mass/Vol] 1.8 mg/dL Normal 1.7-2.3 [facility] Comment on above: Order Comment: Dora finch Type: BLOOD SPECIMENOrdering Facility: [facility] Address: [address] [place] [address] Performed By: #### 2 4323-8, 73503-4, 2777-1 ####[facility] LABIA [id number] [place] [address] [place] NURSING PROGon 12-05-2024 NURSING PROG Normal [facility] NURSING PROG Normal [facility] NUTRITIONon 12-05-2024 NUTRITION Normal [facility] PT panel Coag (PPP)on 2024 INR Coag (PPP) [Relative time] 1.1 {INR} Normal 0.9-1.3 [facility] Comment on above: Order Comment: Dora finch Type: BLOOD SPECIMENOrdering Facility: [facility] Address: [address] [place], [place] [id number] Result Comment: Yamileth min K Antagonist (VKA) Therapeutic Range: INR 2 to 3 (Target INR of 2.5)Note: For patients treated with VKA drugs, such as warfarin, the [place] 2012 Guideline recommends [...] of 3).Rufina POND, et al. Chest 2012, 141:7S-47SMarkel RA, et al. [facility] 2017, 70: 252-289 Performed By: #### 3 217-7, 82934-9, 41745-5 ####[facility] [id number] [place] [address] [place] PT Coag (PPP) [Time] 11.5 s Normal 9.7-13.0 [facility] Comment on above: Order Comment: Speci men Type: BLOOD SPECIMENOrdering Facility: [facility] Address: [address] [place] [address] Performed By: #### 3 217-7, 13042-6, 13293-7 ####[facility] [id number] [place] [address] [place] INR Coag (PPP) [Relative time] 1.2 {INR} Normal 0.9-1.3 [facility] Comment on above: Order Comment: Speci men Type: BLOOD SPECIMENOrdering Facility: [facility] Address: [address] [place] [address] Result Comment: Yamileth min K Antagonist (VKA) Therapeutic Range: INR 2 to 3 (Target INR of 2.5)Note: For patients treated with VKA drugs, such as warfarin, the [place] [employer] 2012 Guideline recommends [...] al. Chest 2012, 141:7S-47SNishimcindy RA, et al. [facility] 2017, 70: 252-289 Performed By: #### 3 217-7, 88028-2 ####[facility] [id number] [place] [address] [place] PT Coag (PPP) [Time] 12.4 s Normal 9.7-13.0 [facility] Comment on above: Order Comment: Speci men Type: BLOOD SPECIMENOrdering Facility: [facility] Address: [address] [place] [address] Performed By: #### 3 217-7, 23718-6 ####[facility] [id number] [place] [id number] [place] Phosphate SerPl-mCncon 12-05 Phosphate [Mass/Vol] 3.9 mg/dL Normal 2.7-4.8 [facility] Comment on above: Order Comment: Speci men Type: BLOOD SPECIMENOrdering Facility: [facility] Address: [address] [place] [address] Performed By: #### 2 4323-8, 53460-5, 2777-1 ####[facility] LABIA [id number] [place] [id number] [place] aPTT PPPon 12-05-2024 aPTT Coag (PPP) [Time] 26.2 s Normal 23.0-32.4 [facility] Comment on above: Order Comment: Speci men Type: BLOOD SPECIMENOrdering Facility: [facility] Address: [address] [place] [address] Performed By: #### 3 217-7, 80778-5, 22045-0 ####[facility] LABCLIA [id number] [place] [address] [place] aPTT Coag (PPP) [Time] s High 23.0-32.4 [facility] Comment on above: Order Comment: Speci men Type: BLOOD SPECIMENOrdering Facility: [facility] Address: [address] [place] [address] Result Comment: Samp le checked for clot.Result rechecked. Performed By: #### 1 4979-9 ####[facility] LABCLIA [id number] [place] [address] [place] Culture, Blood (WB)on 2024 CUB Blood cultures x2, f rom two different sites No growth in 5 days. Normal [facility] Comment on above: Performed By: #### L 100.0100, L500.4050, L503.6005, L300.3900, L300.4310, M200.1000 ####[facility] [address] [place], [address] Urine Cultureon 11-25-2024 URC Normal [facility] Comment on above: Performed By: #### M 100.678, L400.0001, M100.2200 ####[facility] [address] [place], [address] Basic Metabolic Profile (BMP )on 11-24-2024 BUN Normal 4-19 [facility] Comment on above: Result Comment: Canc elled via OM: Order cancelled - Patient discharged Performed By: #### L 500.2500, L100.0100 ####[facility] [address] [place], [address] BUN/CRE Normal 10-20 [facility] Comment on above: Result Comment: Canc elled via OM: Order cancelled - Patient discharged Performed By: #### L 500.2500, L100.0100 ####[facility] [address] [place], [address] Calcium Normal 7.6-11.0 [facility] Comment on above: Result Comment: Canc elled via OM: Order cancelled - Patient discharged Performed By: #### L 500.2500, L100.0100 ####[facility] [address] [place], [address] CL Normal 98-108 [facility] Comment on above: Result Comment: Canc elled via OM: Order cancelled - Patient discharged Performed By: #### L 500.2500, L100.0100 ####[facility] [address] [place], [address] CO2 Normal 21.0-32.0 [facility] Comment on above: Result Comment: Canc elled via OM: Order cancelled - Patient discharged Performed By: #### L 500.2500, L100.0100 ####[facility] [address] [place], [address] CREAT,SERUM Normal 0.70-1.20 [facility] Comment on above: Result Comment: Canc elled via OM: Order cancelled - Patient discharged Performed By: #### L 500.2500, L100.0100 ####[facility] [address] [place], [address] eGFR Normal >60 [facility] Comment on above: Result Comment: Canc elled via OM: Order cancelled - Patient discharged Performed By: #### L 500.2500, L100.0100 ####[facility] [address] [place], [address] GAP Normal 5-15 [facility] Comment on above: Result Comment: Canc elled via OM: Order cancelled - Patient discharged Performed By: #### L 500.2500, L100.0100 ####[facility] [address] [place], [address] GLU Normal 70-99 [facility] Comment on above: Result Comment: Canc elled via OM: Order cancelled - Patient discharged Performed By: #### L 500.2500, L100.0100 ####[facility] [address] [place], [address] Potassium Normal 3.3-5.1 [facility] Comment on above: Result Comment: Canc elled via OM: Order cancelled - Patient discharged Performed By: #### L 500.2500, L100.0100 ####[facility] [address] [place], [address] Basic Metabolic Profile (BMP) Normal 133-145 [facility] Comment on above: Result Comment: Canc elled via OM: Order cancelled - Patient discharged Performed By: #### L 500.2500, L100.0100 ####[facility] [address] [place], [address] CBC W/Diff, Automatedon 05-3 Absolute Neut Normal 2.0-7.7 [facility] Comment on above: Result Comment: Canc elled via OM: Order cancelled - Patient discharged Performed By: #### L 500.2500, L100.0100 ####[facility] [address] [place], [address] HCT Normal 37-47 [facility] Comment on above: Result Comment: Canc elled via OM: Order cancelled - Patient discharged Performed By: #### L 500.2500, L100.0100 ####[facility] [address] [place], [address] HGB Normal 12.0-15.0 [facility] Comment on above: Result Comment: Canc elled via OM: Order cancelled - Patient discharged Performed By: #### L 500.2500, L100.0100 ####[facility] [address] [place], [address] MCH Normal 27.0-32.0 [facility] Comment on above: Result Comment: Canc elled via OM: Order cancelled - Patient discharged Performed By: #### L 500.2500, L100.0100 ####[facility] [address] [place], [address] MCHC Normal 32-36 [facility] Comment on above: Result Comment: Canc elled via OM: Order cancelled - Patient discharged Performed By: #### L 500.2500, L100.0100 ####[facility] [address] [place], [address] MCV Normal 81-99 [facility] Comment on above: Result Comment: Canc elled via OM: Order cancelled - Patient discharged Performed By: #### L 500.2500, L100.0100 ####[facility] [address] [place], [address] NEUT% Normal 47-70 [facility] Comment on above: Result Comment: Canc elled via OM: Order cancelled - Patient discharged Performed By: #### L 500.2500, L100.0100 ####[facility] [address] [place], [address] PLT Normal 150-450 [facility] Comment on above: Result Comment: Canc elled via OM: Order cancelled - Patient discharged Performed By: #### L 500.2500, L100.0100 ####[facility] [address] [place], [address] RBC Normal 4.2-5.4 [facility] Comment on above: Result Comment: Canc elled via OM: Order cancelled - Patient discharged Performed By: #### L 500.2500, L100.0100 ####[facility] [address] [place], [address] RDW CV Normal 11.6-14.6 [facility] Comment on above: Result Comment: Canc elled via OM: Order cancelled - Patient discharged Performed By: #### L 500.2500, L100.0100 ####[facility] [address] [place], [address] RDW SD Normal 35.1-43.9 [facility] Comment on above: Result Comment: Canc elled via OM: Order cancelled - Patient discharged Performed By: #### L 500.2500, L100.0100 ####[facility] [address] [place], [address] WBC Normal 4.4-11.0 [facility] Comment on above: Result Comment: Canc elled via OM: Order cancelled - Patient discharged Performed By: #### L 500.2500, L100.0100 ####[facility] [address] [place], [address] Basic Metabolic Profile (BMP )on 11-23-2024 BUN/CRE 7.9 RATIO Low 10-20 [facility] Comment on above: Performed By: #### L 100.0100, L500.2500 ####[facility] [address] [place], [address] Calcium [Mass/Vol] 7.5 mg/dL Low 7.6-11.0 [facility] Comment on above: Performed By: #### L 100.0100, L500.2500 ####[facility] [address] [place], [address] Chloride [Moles/Vol] 111 mmol/L High 98-108 [facility] Comment on above: Performed By: #### L 100.0100, L500.2500 ####[facility] [address] [place], [address] CO2 [Moles/Vol] 18.5 mmol/L Low 21.0-32.0 [facility] Comment on above: Performed By: #### L 100.0100, L500.2500 ####[facility] [address] [place], [address] Creatinine [Mass/Vol] 0.91 mg/dL Normal 0.70-1.20 [facility] Comment on above: Performed By: #### L 100.0100, L500.2500 ####[facility] [address] [place], [address] ECRCL 90.47 ml/min Normal 50-250 [facility] Comment on above: Performed By: #### L 100.0100, L500.2500 ####[facility] [address] [place], [address] GAP 9 Normal 5-15 [facility] Comment on above: Performed By: #### L 100.0100, L500.2500 ####[facility] [address] [place], [address] GFR/1.73 sq M.predicted among non-blacks MDRD (S/P/Bld) [Vol rate/Area] 81 mL/min/{1.73_m2} Normal >60 [facility] Comment on above: Result Comment: mL/m in/1.73m2 CKD-EPI Creatinine Equation (2020) Performed By: #### L 100.0100, L500.2500 ####[facility] [address] [place], [address] Glucose [Mass/Vol] 111 mg/dL High 70-99 [facility] Comment on above: Performed By: #### L 100.0100, L500.2500 ####[facility] [address] [place], [address] Potassium [Moles/Vol] 3.2 mmol/L Low 3.3-5.1 [facility] Comment on above: Performed By: #### L 100.0100, L500.2500 ####[facility] [address] [place], [address] Sodium [Moles/Vol] 139 mmol/L Normal 133-145 [facility] Comment on above: Performed By: #### L 100.0100, L500.2500 ####[facility] [address] [place], [address] Urea nitrogen [Mass/Vol] 7 mg/dL Normal 4-19 [facility] Comment on above: Performed By: #### L 100.0100, L500.2500 ####[facility] [address] [place], [address] CBC W/Diff, Automatedon 10-27 OVALOCYTE 1+ Normal [facility] Comment on above: Performed By: #### L 100.0100, L500.2500 ####[facility] [address] [place], [address] PLT EST A Normal ADEQ [facility] Comment on above: Performed By: #### L 100.0100, L500.2500 ####[facility] [address] [place], [address] ATYPICAL LYMPH 1+ Normal [facility] Comment on above: Performed By: #### L 100.0100, L500.2500 ####[facility] [address] [place], [address] Basic Metabolic Profile (BMP )on 11-22-2024 BUN/CRE 14.4 RATIO Normal 10-20 [facility] Comment on above: Performed By: #### L 100.0100, L500.2500, L501.2300, L501.5200 ####[facility] [address] [place], [address] Calcium [Mass/Vol] 8.5 mg/dL Normal 7.6-11.0 [facility] Comment on above: Performed By: #### L 100.0100, L500.2500, L501.2300, L501.5200 ####[facility] [address] [place], [address] Chloride [Moles/Vol] 107 mmol/L Normal 98-108 [facility] Comment on above: Performed By: #### L 100.0100, L500.2500, L501.2300, L501.5200 ####[facility] [address] [place], [address] CO2 [Moles/Vol] 18.4 mmol/L Low 21.0-32.0 [facility] Comment on above: Performed By: #### L 100.0100, L500.2500, L501.2300, L501.5200 ####[facility] [address] [place], [address] Creatinine [Mass/Vol] 1.24 mg/dL High 0.70-1.20 [facility] Comment on above: Performed By: #### L 100.0100, L500.2500, L501.2300, L501.5200 ####[facility] [address] [place], [address] ECRCL 66.39 ml/min Normal 50-250 [facility] Comment on above: Performed By: #### L 100.0100, L500.2500, L501.2300, L501.5200 ####[facility] [address] [place], [address] GAP 11 Normal 5-15 [facility] Comment on above: Performed By: #### L 100.0100, L500.2500, L501.2300, L501.5200 ####[facility] [address] [place], [address] GFR/1.73 sq M.predicted among non-blacks MDRD (S/P/Bld) [Vol rate/Area] 56 mL/min/{1.73_m2} Low >60 [facility] Comment on above: Result Comment: mL/m in/1.73m2 CKD-EPI Creatinine Equation (2020) Performed By: #### L 100.0100, L500.2500, L501.2300, L501.5200 ####[facility] [address] [place], [address] Glucose [Mass/Vol] 101 mg/dL High 70-99 [facility] Comment on above: Performed By: #### L 100.0100, L500.2500, L501.2300, L501.5200 ####[facility] [address] [place], [address] Potassium [Moles/Vol] 3.4 mmol/L Normal 3.3-5.1 [facility] Comment on above: Performed By: #### L 100.0100, L500.2500, L501.2300, L501.5200 ####[facility] [address] [place], [address] Sodium [Moles/Vol] 137 mmol/L Normal 133-145 [facility] Comment on above: Performed By: #### L 100.0100, L500.2500, L501.2300, L501.5200 ####[facility] [address] [place], [address] Urea nitrogen [Mass/Vol] 18 mg/dL Normal 4-19 [facility] Comment on above: Performed By: #### L 100.0100, L500.2500, L501.2300, L501.5200 ####[facility] [address] [place], [address] CBC W/Diff, Automatedon 05-2 PATH REV Reviewed Normal [facility] Comment on above: Result Comment: SEE REPORT IN PATIENT'S EMR AMENDED REPORT 11/22/24 1421 PATH REV previously reported as: October Performed By: #### L 300.3900, L300.4310, L503.6005, L500.4050, L501.4021, L503.7505, L100.0100, M200.1000 ####[facility] [address] [place], [address] Absolute Lymph 1.71 X10 3/uL Normal 0.83-4.51 [facility] Comment on above: Performed By: #### L 100.0100, L500.2500, L501.2300, L501.5200 ####[facility] [address] [place], [address] Absolute Neut 3.9 X10 3/uL Normal 2.0-7.7 [facility] Comment on above: Performed By: #### L 100.0100, L500.2500, L501.2300, L501.5200 ####[facility] [address] [place], [address] Basophils/100 WBC (Bld) 0.6 % Normal 0-1 [facility] Comment on above: Performed By: #### L 100.0100, L500.2500, L501.2300, L501.5200 ####[facility] [address] [place], [address] Eosinophils/100 WBC (Bld) 3.0 % Normal 0-5 [facility] Comment on above: Performed By: #### L 100.0100, L500.2500, L501.2300, L501.5200 ####[facility] [address] [place], [address] Erythrocyte distribution width (RBC) [Ratio] 16.2 % High 11.6-14.6 [facility] Comment on above: Performed By: #### L 100.0100, L500.2500, L501.2300, L501.5200 ####[facility] [address] [place], [address] Hematocrit (Bld) [Volume fraction] 27.7 % Low 37-47 [facility] Comment on above: Performed By: #### L 100.0100, L500.2500, L501.2300, L501.5200 ####[facility] [address] [place], [address] Hemoglobin (Bld) [Mass/Vol] 8.7 g/dL Low 12.0-15.0 [facility] Comment on above: Performed By: #### L 100.0100, L500.2500, L501.2300, L501.5200 ####[facility] [address] [place], [address] IG% 0.300 Normal 0.0-0.9 [facility] Comment on above: Result Comment: IG% - Immature Granulocytes (promyelocytes, myelocytes andmetamyelocytes) > 1% indicates that a LEFT SHIFT is Present. Performed By: #### L 100.0100, L500.2500, L501.2300, L501.5200 ####[facility] [address] [place], [address] Lymphocytes/100 WBC (Bld) 26.9 % Normal 19-41 [facility] Comment on above: Performed By: #### L 100.0100, L500.2500, L501.2300, L501.5200 ####[facility] [address] [place], [address] MCH (RBC) [Entitic mass] 25.1 pg Low 27.0-32.0 [facility] Comment on above: Performed By: #### L 100.0100, L500.2500, L501.2300, L501.5200 ####[facility] [address] [place], [address] MCHC (RBC) [Mass/Vol] 31.4 g/dL Low 32-36 [facility] Comment on above: Performed By: #### L 100.0100, L500.2500, L501.2300, L501.5200 ####[facility] [address] [place], [address] MCV (RBC) [Entitic vol] 79.8 fL Low 81-99 [facility] Comment on above: Performed By: #### L 100.0100, L500.2500, L501.2300, L501.5200 ####[facility] [address] [place], [address] Monocytes/100 WBC (Bld) 8.2 % Normal 0-10 [facility] Comment on above: Performed By: #### L 100.0100, L500.2500, L501.2300, L501.5200 ####[facility] [address] [place], [address] Neutrophils/100 WBC (Bld) 61.0 % Normal 47-70 [facility] Comment on above: Performed By: #### L 100.0100, L500.2500, L501.2300, L501.5200 ####[facility] [address] [place], [address] Nucleated RBC (Bld) [#/Vol] 0 10*3/uL Normal 0-5 [facility] Comment on above: Performed By: #### L 100.0100, L500.2500, L501.2300, L501.5200 ####[facility] [address] [place], [address] Platelet mean volume (Bld) [Entitic vol] 8.8 fL Normal 6.2-12.0 [facility] Comment on above: Performed By: #### L 100.0100, L500.2500, L501.2300, L501.5200 ####[facility] [address] [place], [address] Platelets (Bld) [#/Vol] 351 10*3/uL Normal 150-450 [facility] Comment on above: Performed By: #### L 100.0100, L500.2500, L501.2300, L501.5200 ####[facility] [address] [place], [address] RBC (Bld) [#/Vol] 3.47 10*6/uL Low 4.2-5.4 [facility] Comment on above: Performed By: #### L 100.0100, L500.2500, L501.2300, L501.5200 ####[facility] [address] [place], [address] RDW SD 46.9 fl High 35.1-43.9 [facility] Comment on above: Performed By: #### L 100.0100, L500.2500, L501.2300, L501.5200 ####[facility] [address] [place], [address] WBC (Bld) [#/Vol] 6.4 10*3/uL Normal 4.4-11.0 [facility] Comment on above: Performed By: #### L 100.0100, L500.2500, L501.2300, L501.5200 ####[facility] [address] [place], [address] Magnesiumon 11-22-2024 Magnesium [Mass/Vol] 1.3 mg/dL Low 1.5-2.2 [facility] Comment on above: Performed By: #### L 100.0100, L500.2500, L501.2300, L501.5200 ####[facility] [address] [place], [address] Phosphoruson 11-22-2024 Phosphate [Mass/Vol] 2.7 mg/dL Normal 2.7-4.5 [facility] Comment on above: Performed By: #### L 100.0100, L500.2500, L501.2300, L501.5200 ####[facility] [address] [place], [address] Basic Metabolic Profile (BMP )on 11-21-2024 BUN/CRE 11.9 RATIO Normal 10-20 [facility] Comment on above: Performed By: #### L 100.0100, L500.2500 ####[facility] [address] [place], [address] Calcium [Mass/Vol] 9.1 mg/dL Normal 7.6-11.0 [facility] Comment on above: Performed By: #### L 100.0100, L500.2500 ####[facility] [address] [place], [address] Chloride [Moles/Vol] 95 mmol/L Low 98-108 [facility] Comment on above: Performed By: #### L 100.0100, L500.2500 ####[facility] [address] [place], [address] CO2 [Moles/Vol] 15.6 mmol/L Low 21.0-32.0 [facility] Comment on above: Performed By: #### L 100.0100, L500.2500 ####[facility] [address] [place], [address] Creatinine [Mass/Vol] 2.69 mg/dL High 0.70-1.20 [facility] Comment on above: Performed By: #### L 100.0100, L500.2500 ####[facility] [address] [place], [address] ECRCL 30.60 ml/min Low 50-250 [facility] Comment on above: Performed By: #### L 100.0100, L500.2500 ####[facility] [address] [place], [address] GAP 17 High 5-15 [facility] Comment on above: Performed By: #### L 100.0100, L500.2500 ####[facility] [address] [place], [address] GFR/1.73 sq M.predicted among non-blacks MDRD (S/P/Bld) [Vol rate/Area] 22 mL/min/{1.73_m2} Low >60 [facility] Comment on above: Result Comment: mL/m in/1.73m2 CKD-EPI Creatinine Equation (2020) Performed By: #### L 100.0100, L500.2500 ####[facility] [address] [place], [address] Glucose [Mass/Vol] 127 mg/dL High 70-99 [facility] Comment on above: Performed By: #### L 100.0100, L500.2500 ####[facility] [address] [place], [address] Potassium [Moles/Vol] 3.6 mmol/L Normal 3.3-5.1 [facility] Comment on above: Performed By: #### L 100.0100, L500.2500 ####[facility] [address] [place], [address] Sodium [Moles/Vol] 128 mmol/L Low 133-145 [facility] Comment on above: Performed By: #### L 100.0100, L500.2500 ####[facility] [address] [place], [address] Urea nitrogen [Mass/Vol] 32 mg/dL High 4-19 [facility] Comment on above: Performed By: #### L 100.0100, L500.2500 ####[facility] [address] [place], [address] CBC W/Diff, Automatedon 05-2 Absolute Lymph 2.24 X10 3/uL Normal 0.83-4.51 [facility] Comment on above: Performed By: #### L 100.0100, L500.2500 ####[facility] [address] [place], [address] Absolute Neut 5.3 X10 3/uL Normal 2.0-7.7 [facility] Comment on above: Performed By: #### L 100.0100, L500.2500 ####[facility] [address] [place], [address] Basophils/100 WBC (Bld) 0.6 % Normal 0-1 [facility] Comment on above: Performed By: #### L 100.0100, L500.2500 ####[facility] [address] [place], [address] Eosinophils/100 WBC (Bld) 1.9 % Normal 0-5 [facility] Comment on above: Performed By: #### L 100.0100, L500.2500 ####[facility] [address] [place], [address] Erythrocyte distribution width (RBC) [Ratio] 16.3 % High 11.6-14.6 [facility] Comment on above: Performed By: #### L 100.0100, L500.2500 ####[facility] [address] [place], [address] Hematocrit (Bld) [Volume fraction] 30.2 % Low 37-47 [facility] Comment on above: Performed By: #### L 100.0100, L500.2500 ####[facility] [address] [place], [address] Hemoglobin (Bld) [Mass/Vol] 9.5 g/dL Low 12.0-15.0 [facility] Comment on above: Performed By: #### L 100.0100, L500.2500 ####[facility] [address] [place], [address] IG% 0.500 Normal 0.0-0.9 [facility] Comment on above: Result Comment: IG% - Immature Granulocytes (promyelocytes, myelocytes andmetamyelocytes) > 1% indicates that a LEFT SHIFT is Present. Performed By: #### L 100.0100, L500.2500 ####[facility] [address] [place], [address] Lymphocytes/100 WBC (Bld) 26.5 % Normal 19-41 [facility] Comment on above: Performed By: #### L 100.0100, L500.2500 ####[facility] [address] [place], [address] MCH (RBC) [Entitic mass] 24.7 pg Low 27.0-32.0 [facility] Comment on above: Performed By: #### L 100.0100, L500.2500 ####[facility] [address] [place], [address] MCHC (RBC) [Mass/Vol] 31.5 g/dL Low 32-36 [facility] Comment on above: Performed By: #### L 100.0100, L500.2500 ####[facility] [address] [place], [address] MCV (RBC) [Entitic vol] 78.6 fL Low 81-99 [facility] Comment on above: Performed By: #### L 100.0100, L500.2500 ####[facility] [address] [place], [address] Monocytes/100 WBC (Bld) 8.5 % Normal 0-10 [facility] Comment on above: Performed By: #### L 100.0100, L500.2500 ####[facility] [address] [place], [address] Neutrophils/100 WBC (Bld) 62.0 % Normal 47-70 [facility] Comment on above: Performed By: #### L 100.0100, L500.2500 ####[facility] [address] [place], [address] Nucleated RBC (Bld) [#/Vol] 0 10*3/uL Normal 0-5 [facility] Comment on above: Performed By: #### L 100.0100, L500.2500 ####[facility] [address] [place], [address] Platelet mean volume (Bld) [Entitic vol] 8.8 fL Normal 6.2-12.0 [facility] Comment on above: Performed By: #### L 100.0100, L500.2500 ####[facility] [address] [place], [address] Platelets (Bld) [#/Vol] 423 10*3/uL Normal 150-450 [facility] Comment on above: Performed By: #### L 100.0100, L500.2500 ####[facility] [address] [place], [address] RBC (Bld) [#/Vol] 3.84 10*6/uL Low 4.2-5.4 [facility] Comment on above: Performed By: #### L 100.0100, L500.2500 ####[facility] [address] [place], [address] RDW SD 46.2 fl High 35.1-43.9 [facility] Comment on above: Performed By: #### L 100.0100, L500.2500 ####[facility] [address] [place], [address] WBC (Bld) [#/Vol] 8.5 10*3/uL Normal 4.4-11.0 [facility] Comment on above: Performed By: #### L 100.0100, L500.2500 ####[facility] [address] [place], [address] H AND P Exam - Hospitaliston 11-21-2024 H&P Exam - Hospitalist Normal [facility] Urinalysis, Completeon 11-21 BACTERIA 2+ /hpf Normal None Seen [facility] Comment on above: Order Comment: LEO CTOR TO SPECIFY Performed By: #### M 100.678, L400.0001, M100.2200 ####[facility] [address] [place], [address] EPI,SQUAMOUS 0-5 SEEN Normal 5-10 [facility] Comment on above: Order Comment: LEO CTOR TO SPECIFY Performed By: #### M 100.678, L400.0001, M100.2200 ####[facility] [address] [place], [address] WBC 10-25 SEEN Normal 0-5 [facility] Comment on above: Order Comment: LEO CTOR TO SPECIFY Performed By: #### M 100.678, L400.0001, M100.2200 ####[facility] [address] [place], [address] YEAST 1+ /hpf Normal None Seen [facility] Comment on above: Order Comment: LEO CTOR TO SPECIFY Performed By: #### M 100.678, L400.0001, M100.2200 ####[facility] [address] [place], [address] BILIRUBIN URINE Negative Normal Negative [facility] Comment on above: Order Comment: LEO CTOR TO SPECIFY Performed By: #### M 100.678, L400.0001, M100.2200 ####[facility] [address] [place], [address] Clarity (U) Clear Normal Clear [facility] Comment on above: Order Comment: COLLE CTOR TO SPECIFY Performed By: #### M 100.678, L400.0001, M100.2200 ####[facility] [address] [place], [address] Color (U) Yellow Normal Yellow [facility] Comment on above: Order Comment: COLLE CTOR TO SPECIFY Performed By: #### M 100.678, L400.0001, M100.2200 ####[facility] [address] [place], [address] GLUCOSE, UR Normal Normal Normal [facility] Comment on above: Order Comment: COLLE CTOR TO SPECIFY Performed By: #### M 100.678, L400.0001, M100.2200 ####[facility] [address] [place], [address] KETONE UR Negative Normal Negative [facility] Comment on above: Order Comment: [facility] CTOR TO SPECIFY Performed By: #### M 100.678, L400.0001, M100.2200 ####[facility] [address] [place], [address] LEUK ESTERASE 25 /ul Abnormal Negative [facility] Comment on above: Order Comment: COLLE CTOR TO SPECIFY Performed By: #### M 100.678, L400.0001, M100.2200 ####[facility] [address] [place], [address] Nitrite Ql (U) Negative Normal Negative [facility] Comment on above: Order Comment: COLLE CTOR TO SPECIFY Performed By: #### M 100.678, L400.0001, M100.2200 ####[facility] [address] [place], [address] OCCULT BLOOD-UR Negative Normal Negative [facility] Comment on above: Order Comment: COLLE CTOR TO SPECIFY Performed By: #### M 100.678, L400.0001, M100.2200 ####[facility] [address] [place], [address] pH UR 5.0 Normal 5.0 - 8.0 [facility] Comment on above: Order Comment: LEO CTOR TO SPECIFY Performed By: #### M 100.678, L400.0001, M100.2200 ####[facility] [address] [place], [address] PROT DIPSTX 30 mg/dl Abnormal Negative [facility] Comment on above: Order Comment: LEO CTOR TO SPECIFY Performed By: #### M 100.678, L400.0001, M100.2200 ####[facility] [address] [place], [address] SP.GR. DIPSTX 1.015 Normal 1.002-1.030 [facility] Comment on above: Order Comment: LEO CTOR TO SPECIFY Performed By: #### M 100.678, L400.0001, M100.2200 ####[facility] [address] [place], [address] UROBILI Normal Normal Normal [facility] Comment on above: Order Comment: LEO CTOR TO SPECIFY Performed By: #### M 100.678, L400.0001, M100.2200 ####[facility] [address] [place], [address] Mucus Ql (Urine sed) 0 SEEN Normal [facility] Comment on above: Order Comment: LEO CTOR TO SPECIFY Performed By: #### M 100.678, L400.0001, M100.2200 ####[facility] [address] [place], [address] RBC 0 SEEN Normal 0-5 [facility] Comment on above: Order Comment: LEO CTOR TO SPECIFY Performed By: #### M 100.678, L400.0001, M100.2200 ####[facility] [address] [place], [address] 12 Lead EKGon 11-20-2024 12 Lead EKG Normal [facility] CBC W/Diff, Automatedon 05- PLT EST MKD INC Normal ADEQ [facility] Comment on above: Performed By: #### L 100.0100, L500.4050, L503.6005, L300.3900, L300.4310, M200.1000 ####[facility] [address] [place], [address] PATH REV May foll Normal [facility] Comment on above: Performed By: #### L 100.0100, L500.4050, L503.6005, L300.3900, L300.4310, M200.1000 ####[facility] [address] [place], [address] CTA Chst, Abd, Pel W and/or WOon 11-20-2024 CTA Chst, Abd, Pel W and/or WO Normal [facility] Comprehensive Metabolic Prof ilon 11-20-2024 Albumin [Mass/Vol] 4.7 g/dL Normal 3.5-5.0 [facility] Comment on above: Performed By: #### L 100.0100, L500.4050, L503.6005, L300.3900, L300.4310, M200.1000 ####[facility] [address] [place], [place], [id number] Albumin/Globulin [Mass ratio] 0.9 {ratio} Normal 0.9-2.4 [facility] Comment on above: Performed By: #### L 100.0100, L500.4050, L503.6005, L300.3900, L300.4310, M200.1000 ####[facility] [address] [place], [address] ALK PHOS 337 U/L High 35-104 [facility] Comment on above: Performed By: #### L 100.0100, L500.4050, L503.6005, L300.3900, L300.4310, M200.1000 ####[facility] [address] [place], [address] ALT [Catalytic activity/Vol] 127 U/L High <=34 [facility] Comment on above: Performed By: #### L 100.0100, L500.4050, L503.6005, L300.3900, L300.4310, M200.1000 ####[facility] [address] [place], [address] AST [Catalytic activity/Vol] 106 U/L High <=31 [facility] Comment on above: Performed By: #### L 100.0100, L500.4050, L503.6005, L300.3900, L300.4310, M200.1000 ####[facility] [address] [place], [address] Bilirubin [Mass/Vol] 0.82 mg/dL Normal 0.00-1.30 [facility] Comment on above: Performed By: #### L 100.0100, L500.4050, L503.6005, L300.3900, L300.4310, M200.1000 ####[facility] [address] [place], [address] BUN/CRE 8.4 RATIO Low 10-20 [facility] Comment on above: Performed By: #### L 100.0100, L500.4050, L503.6005, L300.3900, L300.4310, M200.1000 ####[facility] [address] [place], [address] Calcium [Mass/Vol] 10.8 mg/dL Normal 7.6-11.0 [facility] Comment on above: Performed By: #### L 100.0100, L500.4050, L503.6005, L300.3900, L300.4310, M200.1000 ####[facility] [address] [place], [address] Chloride [Moles/Vol] 88 mmol/L Low 98-108 [facility] Comment on above: Performed By: #### L 100.0100, L500.4050, L503.6005, L300.3900, L300.4310, M200.1000 ####[facility] [address] [place], [address] CO2 [Moles/Vol] 15.2 mmol/L Low 21.0-32.0 [facility] Comment on above: Performed By: #### L 100.0100, L500.4050, L503.6005, L300.3900, L300.4310, M200.1000 ####[facility] [address] [place], [address] Creatinine [Mass/Vol] 4.32 mg/dL High 0.70-1.20 [facility] Comment on above: Performed By: #### L 100.0100, L500.4050, L503.6005, L300.3900, L300.4310, M200.1000 ####[facility] [address] [place], [address] ECRCL 19.01 ml/min Low 50-250 [facility] Comment on above: Performed By: #### L 100.0100, L500.4050, L503.6005, L300.3900, L300.4310, M200.1000 ####[facility] [address] [place], [address] GAP 25 High 5-15 [facility] Comment on above: Performed By: #### L 100.0100, L500.4050, L503.6005, L300.3900, L300.4310, M200.1000 ####[facility] [address] [place], [address] GFR/1.73 sq M.predicted among non-blacks MDRD (S/P/Bld) [Vol rate/Area] 13 mL/min/{1.73_m2} Low >60 [facility] Comment on above: Result Comment: mL/m in/1.73m2 CKD-EPI Creatinine Equation (2020) Performed By: #### L 100.0100, L500.4050, L503.6005, L300.3900, L300.4310, M200.1000 ####[facility] [address] [place], [address] Globulin (S) [Mass/Vol] 5.5 g/dL High 2.2-4.2 [facility] Comment on above: Performed By: #### L 100.0100, L500.4050, L503.6005, L300.3900, L300.4310, M200.1000 ####[facility] [address] [place], [address] Glucose [Mass/Vol] 249 mg/dL High 70-99 [facility] Comment on above: Performed By: #### L 100.0100, L500.4050, L503.6005, L300.3900, L300.4310, M200.1000 ####[facility] [address] [place], [address] Potassium [Moles/Vol] 4.4 mmol/L Normal 3.3-5.1 [facility] Comment on above: Performed By: #### L 100.0100, L500.4050, L503.6005, L300.3900, L300.4310, M200.1000 ####[facility] [address] [place], [address] Sodium [Moles/Vol] 129 mmol/L Low 133-145 [facility] Comment on above: Performed By: #### L 100.0100, L500.4050, L503.6005, L300.3900, L300.4310, M200.1000 ####[facility] [address] [place], [address] T PROT 10.1 g/dL High 5.9-8.4 [facility] Comment on above: Performed By: #### L 100.0100, L500.4050, L503.6005, L300.3900, L300.4310, M200.1000 ####[facility] [address] [place], [address] Urea nitrogen [Mass/Vol] 36 mg/dL High 4-19 [facility] Comment on above: Performed By: #### L 100.0100, L500.4050, L503.6005, L300.3900, L300.4310, M200.1000 ####[facility] [address] [place], [address] Emergency Department Summary on 11-20-2024 Emergency Department Summary Normal [facility] Foot min 3 Viewson 5 Foot min 3 Views Normal [facility] L499.0042on 11-20-2024 Trop T High Sen 32 ng/L High <=14 [facility] Comment on above: Performed By: #### L 499.0042 ####[facility] [address] [place], [address] L499.0043on 11-20-2024 Trop T High Sen 32 ng/L High <=14 [facility] Comment on above: Performed By: #### L 499.0043 ####[facility] [address] [place], [address] L501.4021on 11-20-2024 Trop T High Sen 38 ng/L High <=14 [facility] Comment on above: Performed By: #### L 501.4021 ####[facility] [address] [place], [address] Lactic Acidon 11-20-2024 Lactate [Moles/Vol] 1.7 mmol/L Normal 0.0-2.0 [facility] Comment on above: Performed By: #### L 503.6005 ####[facility] [address] [place], [address] Lactate [Moles/Vol] 6.1 mmol/L Invalid Interpretation Code 0.0-2.0 [facility] Comment on above: Order Comment: Y Result Comment: Crit ical Result(s) Called at: 1557 by: CLAUDIA GUTIERREZ TO [facility]??Results read back by same. Performed By: #### L 100.0100, L500.4050, L503.6005, L300.3900, L300.4310, M200.1000 ####[facility] [address] [place], [address] M100.678on 11-20-2024 M100.678 Pending SARS-CoV-2 (COVID 19) Negative INFLUENZA A Negative INFLUENZA B Negative RSV PCR Negative Normal [facility] Comment on above: Performed By: #### M 100.678, L400.0001, M100.2200 ####[facility] [address] [place], [address] Partial Thromboplast Timeon 11-20-2024 aPTT Coag (Bld) [Time] 30.1 s Normal 24.1-36.2 [facility] Comment on above: Performed By: #### L 100.0100, L500.4050, L503.6005, L300.3900, L300.4310, M200.1000 ####[facility] [address] [place], [address] Prothrombin Time w/INRon INR Coag (PPP) [Relative time] 1.1 {INR} Normal [facility] Comment on above: Performed By: #### L 100.0100, L500.4050, L503.6005, L300.3900, L300.4310, M200.1000 ####[facility] [address] [place], [address] PT Coag (PPP) [Time] 14.8 s Normal 11.7-14.9 [facility] Comment on above: Performed By: #### L 100.0100, L500.4050, L503.6005, L300.3900, L300.4310, M200.1000 ####[facility] [address] [place], [address] Culture, Anaerobic Any Sourc patricia 11-19-2024 CUAN UNK UNK COLLECTED IN OR No anaerobic bacteria isolated. [facility] Comment on above: Performed By: #### M 100.3000, M100.4001, M100.2000 ####[facility] [address] [place], [address] Culture, Blood (WB)on 2024 CUB Blood cultures x2, f rom two different sites No growth in 5 days. [facility] Comment on above: Performed By: #### M 200.1000 ####[facility] [address] [place], [address] CUB Blood cultures x2, f rom two different sites No growth in 5 days. [facility] Comment on above: Performed By: #### L 300.3900, L300.4310, L503.6005, L500.4050, L501.4021, L503.7505, L100.0100, M200.1000 ####[facility] [address] [place], [address] Wound Cultureon 11-18-2024 Normal [facility] Comment on above: Performed By: #### M 100.3000, M100.4001, M100.2000 ####[facility] [address] [place], [address] Discharge Instructionon 10-26 Discharge Instruction Normal [facility] Basic Metabolic Profile (BMP )on 11-15-2024 BUN/CRE 13.5 RATIO Normal 10-20 [facility] Comment on above: Performed By: #### L 100.0100, L500.2500, L300.3900, L300.4310 ####[facility] [address] [place], [address] Calcium [Mass/Vol] 8.3 mg/dL Normal 7.6-11.0 [facility] Comment on above: Performed By: #### L 100.0100, L500.2500, L300.3900, L300.4310 ####[facility] [address] [place], [address] Chloride [Moles/Vol] 105 mmol/L Normal 98-108 [facility] Comment on above: Performed By: #### L 100.0100, L500.2500, L300.3900, L300.4310 ####[facility] [address] [place], [address] CO2 [Moles/Vol] 19.0 mmol/L Low 21.0-32.0 [facility] Comment on above: Performed By: #### L 100.0100, L500.2500, L300.3900, L300.4310 ####[facility] [address] [place], [address] Creatinine [Mass/Vol] 1.38 mg/dL High 0.70-1.20 [facility] Comment on above: Performed By: #### L 100.0100, L500.2500, L300.3900, L300.4310 ####[facility] [address] [place], [address] ECRCL 60.44 ml/min Normal 50-250 [facility] Comment on above: Performed By: #### L 100.0100, L500.2500, L300.3900, L300.4310 ####[facility] [address] [place], [address] GAP 11 Normal 5-15 [facility] Comment on above: Performed By: #### L 100.0100, L500.2500, L300.3900, L300.4310 ####[facility] [address] [place], [address] GFR/1.73 sq M.predicted among non-blacks MDRD (S/P/Bld) [Vol rate/Area] 49 mL/min/{1.73_m2} Low >60 [facility] Comment on above: Result Comment: mL/m in/1.73m2 CKD-EPI Creatinine Equation (2020) Performed By: #### L 100.0100, L500.2500, L300.3900, L300.4310 ####[facility] [facility] [address] [place], [address] Glucose [Mass/Vol] 90 mg/dL Normal 70-99 [facility] Comment on above: Performed By: #### L 100.0100, L500.2500, L300.3900, L300.4310 ####[facility] [address] [place], [address] Potassium [Moles/Vol] 3.2 mmol/L Low 3.3-5.1 [facility] Comment on above: Performed By: #### L 100.0100, L500.2500, L300.3900, L300.4310 ####[facility] [address] [place], [address] Sodium [Moles/Vol] 135 mmol/L Normal 133-145 [facility] Comment on above: Performed By: #### L 100.0100, L500.2500, L300.3900, L300.4310 ####[facility] [address] [place], [address] Urea nitrogen [Mass/Vol] 19 mg/dL Normal 4-19 [facility] Comment on above: Performed By: #### L 100.0100, L500.2500, L300.3900, L300.4310 ####[facility] [address] [place], [address] CBC W/Diff, Automatedon 05 Absolute Lymph 2.01 X10 3/uL Normal 0.83-4.51 [facility] Comment on above: Performed By: #### L 100.0100, L500.2500, L300.3900, L300.4310 ####[facility] [address] [place], [address] Absolute Neut 3.1 X10 3/uL Normal 2.0-7.7 [facility] Comment on above: Performed By: #### L 100.0100, L500.2500, L300.3900, L300.4310 ####[facility] [address] [place], [address] Basophils/100 WBC (Bld) 1.0 % Normal 0-1 [facility] Comment on above: Performed By: #### L 100.0100, L500.2500, L300.3900, L300.4310 ####[facility] [address] [place], [address] Eosinophils/100 WBC (Bld) 1.9 % Normal 0-5 [facility] Comment on above: Performed By: #### L 100.0100, L500.2500, L300.3900, L300.4310 ####[facility] [address] [place], [address] Erythrocyte distribution width (RBC) [Ratio] 16.0 % High 11.6-14.6 [facility] Comment on above: Performed By: #### L 100.0100, L500.2500, L300.3900, L300.4310 ####[facility] [address] [place], [address] Hematocrit (Bld) [Volume fraction] 26.8 % Low 37-47 [facility] Comment on above: Performed By: #### L 100.0100, L500.2500, L300.3900, L300.4310 ####[facility] [address] [place], [address] Hemoglobin (Bld) [Mass/Vol] 8.6 g/dL Low 12.0-15.0 [facility] Comment on above: Performed By: #### L 100.0100, L500.2500, L300.3900, L300.4310 ####[facility] [address] [place], [address] IG% 0.300 Normal 0.0-0.9 [facility] Comment on above: Result Comment: IG% - Immature Granulocytes (promyelocytes, myelocytes andmetamyelocytes) > 1% indicates that a LEFT SHIFT is Present. Performed By: #### L 100.0100, L500.2500, L300.3900, L300.4310 ####[facility] [address] [place], [address] Lymphocytes/100 WBC (Bld) 34.9 % Normal 19-41 [facility] Comment on above: Performed By: #### L 100.0100, L500.2500, L300.3900, L300.4310 ####[facility] [address] [place], [address] MCH (RBC) [Entitic mass] 25.2 pg Low 27.0-32.0 [facility] Comment on above: Performed By: #### L 100.0100, L500.2500, L300.3900, L300.4310 ####[facility] [address] [place], [address] MCHC (RBC) [Mass/Vol] 32.1 g/dL Normal 32-36 [facility] Comment on above: Performed By: #### L 100.0100, L500.2500, L300.3900, L300.4310 ####[facility] [address] [place], [address] MCV (RBC) [Entitic vol] 78.6 fL Low 81-99 [facility] Comment on above: Performed By: #### L 100.0100, L500.2500, L300.3900, L300.4310 ####[facility] [address] [place], [address] Monocytes/100 WBC (Bld) 8.0 % Normal 0-10 [facility] Comment on above: Performed By: #### L 100.0100, L500.2500, L300.3900, L300.4310 ####[facility] [address] [place], [address] Neutrophils/100 WBC (Bld) 53.9 % Normal 47-70 [facility] Comment on above: Performed By: #### L 100.0100, L500.2500, L300.3900, L300.4310 ####[facility] [address] [place], [address] Nucleated RBC (Bld) [#/Vol] 0 10*3/uL Normal 0-5 [facility] Comment on above: Performed By: #### L 100.0100, L500.2500, L300.3900, L300.4310 ####[facility] [address] [place], [address] Platelet mean volume (Bld) [Entitic vol] 9.1 fL Normal 6.2-12.0 [facility] Comment on above: Performed By: #### L 100.0100, L500.2500, L300.3900, L300.4310 ####[facility] [address] [place], [address] Platelets (Bld) [#/Vol] 394 10*3/uL Normal 150-450 [facility] Comment on above: Performed By: #### L 100.0100, L500.2500, L300.3900, L300.4310 ####[facility] [address] [place], [address] RBC (Bld) [#/Vol] 3.41 10*6/uL Low 4.2-5.4 [facility] Comment on above: Performed By: #### L 100.0100, L500.2500, L300.3900, L300.4310 ####[facility] [address] [place], [address] RDW SD 45.2 fl High 35.1-43.9 [facility] Comment on above: Performed By: #### L 100.0100, L500.2500, L300.3900, L300.4310 ####[facility] [address] [place], [address] WBC (Bld) [#/Vol] 5.8 10*3/uL Normal 4.4-11.0 [facility] Comment on above: Performed By: #### L 100.0100, L500.2500, L300.3900, L300.4310 ####[facility] [address] [place], [address] Decalcification bone/plaqueo n 11-15-2024 Decalcification bone/plaque Normal [facility] Comment on above: Performed By: #### P DEC ####[facility] [address] [place], [address] Gram Stainon 11-15-2024 GS UNK UNK COLLECTED IN OR Gram Stain Rare Gram positive cocci Rare Gram positive rods Normal [facility] Comment on above: Performed By: #### M 100.3000, M100.4001, M100.2000 ####[facility] [address] [place], [address] MR/POSTOP.ANEon 11-15-2024 MR/POSTOP.ANE Normal [facility] MR/WQHGYOCE1mz 11-15-2024 MR/POSTOPAN2 Normal [facility] Operative Reporton Operative Report Normal [facility] Partial Thromboplast Timeon 11-15-2024 aPTT Coag (Bld) [Time] 59.2 s High 24.1-36.2 [facility] Comment on above: Performed By: #### L 100.0100, L500.2500, L300.3900, L300.4310 ####[facility] [address] [place], [address] aPTT Coag (Bld) [Time] 82.6 s High 24.1-36.2 [facility] Comment on above: Performed By: #### L 300.4310 ####[facility] [address] [place], [address] ,Urineon 11-15-2024 Beta HCG ( test) Ql (U) Negative Normal [facility] Comment on above: Result Comment: Very dilute urine specimens, as indicated by a low specificgravity, may not contain cash application representative levels of hCG.If is still suspected, a first morning urinespecimen should be collected 48 hours later and tested. Performed By: #### L 400.7600 ####[facility] [address] [place], [address] Prothrombin Time w/INRon INR Coag (PPP) [Relative time] 1.1 {INR} Normal [facility] Comment on above: Performed By: #### L 100.0100, L500.2500, L300.3900, L300.4310 ####[facility] [address] [place], [address] PT Coag (PPP) [Time] 14.0 s Normal 11.7-14.9 [facility] Comment on above: Performed By: #### L 100.0100, L500.2500, L300.3900, L300.4310 ####[facility] [address] [place], [address] CBC W/Diff, Automatedon 05-2 -2024 Absolute Lymph 1.95 X10 3/uL Normal 0.83-4.51 [facility] Comment on above: Performed By: #### L 100.0100, L500.4050 ####[facility] [address] [place], [address] Absolute Neut 3.7 X10 3/uL Normal 2.0-7.7 [facility] Comment on above: Performed By: #### L 100.0100, L500.4050 ####[facility] [address] [place], [address] Basophils/100 WBC (Bld) 0.8 % Normal 0-1 [facility] Comment on above: Performed By: #### L 100.0100, L500.4050 ####[facility] [address] [place], [address] Eosinophils/100 WBC (Bld) 2.1 % Normal 0-5 [facility] Comment on above: Performed By: #### L 100.0100, L500.4050 ####[facility] [address] [place], [address] Erythrocyte distribution width (RBC) [Ratio] 15.8 % High 11.6-14.6 [facility] Comment on above: Performed By: #### L 100.0100, L500.4050 ####[facility] [address] [place], [address] Hematocrit (Bld) [Volume fraction] 28.9 % Low 37-47 [facility] Comment on above: Performed By: #### L 100.0100, L500.4050 ####[facility] [address] [place], [address] Hemoglobin (Bld) [Mass/Vol] 9.3 g/dL Low 12.0-15.0 [facility] Comment on above: Performed By: #### L 100.0100, L500.4050 ####[facility] [address] [place], [address] IG% 0.300 Normal 0.0-0.9 [facility] Comment on above: Result Comment: IG% - Immature Granulocytes (promyelocytes, myelocytes andmetamyelocytes) > 1% indicates that a LEFT SHIFT is Present. Performed By: #### L 100.0100, L500.4050 ####[facility] [address] [place], [address] Lymphocytes/100 WBC (Bld) 30.8 % Normal 19-41 [facility] Comment on above: Performed By: #### L 100.0100, L500.4050 ####[facility] [address] [place], [address] MCH (RBC) [Entitic mass] 24.7 pg Low 27.0-32.0 [facility] Comment on above: Performed By: #### L 100.0100, L500.4050 ####[facility] [address] [place], [address] MCHC (RBC) [Mass/Vol] 32.2 g/dL Normal 32-36 [facility] Comment on above: Performed By: #### L 100.0100, L500.4050 ####[facility] [address] [place], [address] MCV (RBC) [Entitic vol] 76.9 fL Low 81-99 [facility] Comment on above: Performed By: #### L 100.0100, L500.4050 ####[facility] [address] [place], [address] Monocytes/100 WBC (Bld) 7.4 % Normal 0-10 [facility] Comment on above: Performed By: #### L 100.0100, L500.4050 ####[facility] [address] [place], [address] Neutrophils/100 WBC (Bld) 58.6 % Normal 47-70 [facility] Comment on above: Performed By: #### L 100.0100, L500.4050 ####[facility] [address] [place], [address] Nucleated RBC (Bld) [#/Vol] 0 10*3/uL Normal 0-5 [facility] Comment on above: Performed By: #### L 100.0100, L500.4050 ####[facility] [address] [place], [address] Platelet mean volume (Bld) [Entitic vol] 8.9 fL Normal 6.2-12.0 [facility] Comment on above: Performed By: #### L 100.0100, L500.4050 ####[facility] [address] [place], [address] Platelets (Bld) [#/Vol] 393 10*3/uL Normal 150-450 [facility] Comment on above: Performed By: #### L 100.0100, L500.4050 ####[facility] [address] [place], [address] RBC (Bld) [#/Vol] 3.76 10*6/uL Low 4.2-5.4 [facility] Comment on above: Performed By: #### L 100.0100, L500.4050 ####[facility] [address] [place], [address] RDW SD 43.0 fl Normal 35.1-43.9 [facility] Comment on above: Performed By: #### L 100.0100, L500.4050 ####[facility] [address] [place], [address] WBC (Bld) [#/Vol] 6.3 10*3/uL Normal 4.4-11.0 [facility] Comment on above: Performed By: #### L 100.0100, L500.4050 ####[facility] [address] [place], [address] Comprehensive Metabolic Prof ilon 11-14-2024 Albumin [Mass/Vol] 3.4 g/dL Low 3.5-5.0 [facility] Comment on above: Performed By: #### L 100.0100, L500.4050 ####[facility] [address] [place], [address] Albumin/Globulin [Mass ratio] 1.0 {ratio} Normal 0.9-2.4 [facility] Comment on above: Performed By: #### L 100.0100, L500.4050 ####[facility] [address] [place], [address] ALK PHOS 273 U/L High 35-104 [facility] Comment on above: Performed By: #### L 100.0100, L500.4050 ####[facility] [address] [place], [address] ALT [Catalytic activity/Vol] 205 U/L High <=34 [facility] Comment on above: Performed By: #### L 100.0100, L500.4050 ####[facility] [address] [place], [address] AST [Catalytic activity/Vol] 102 U/L High <=31 [facility] Comment on above: Performed By: #### L 100.0100, L500.4050 ####[facility] [address] [place], [address] Bilirubin [Mass/Vol] 1.20 mg/dL Normal 0.00-1.30 [facility] Comment on above: Performed By: #### L 100.0100, L500.4050 ####[facility] [address] [place], [address] BUN/CRE 18.6 RATIO Normal 10-20 [facility] Comment on above: Performed By: #### L 100.0100, L500.4050 ####[facility] [address] [place], [address] Calcium [Mass/Vol] 8.8 mg/dL Normal 7.6-11.0 [facility] Comment on above: Performed By: #### L 100.0100, L500.4050 ####[facility] [address] [place], [address] Chloride [Moles/Vol] 100 mmol/L Normal 98-108 [facility] Comment on above: Performed By: #### L 100.0100, L500.4050 ####[facility] [address] [place], [address] CO2 [Moles/Vol] 17.5 mmol/L Low 21.0-32.0 [facility] Comment on above: Performed By: #### L 100.0100, L500.4050 ####[facility] [address] [place], [address] Creatinine [Mass/Vol] 2.17 mg/dL High 0.70-1.20 [facility] Comment on above: Performed By: #### L 100.0100, L500.4050 ####[facility] [address] [place], [address] ECRCL 38.54 ml/min Low 50-250 [facility] Comment on above: Performed By: #### L 100.0100, L500.4050 ####[facility] [address] [place], [address] GAP 14 Normal 5-15 [facility] Comment on above: Performed By: #### L 100.0100, L500.4050 ####[facility] [address] [place], [address] GFR/1.73 sq M.predicted among non-blacks MDRD (S/P/Bld) [Vol rate/Area] 29 mL/min/{1.73_m2} Low >60 [facility] Comment on above: Result Comment: mL/m in/1.73m2 CKD-EPI Creatinine Equation (2020) Performed By: #### L 100.0100, L500.4050 ####[facility] [address] [place], [address] Globulin (S) [Mass/Vol] 3.6 g/dL Normal 2.2-4.2 [facility] Comment on above: Performed By: #### L 100.0100, L500.4050 ####[facility] [address] [place], [address] Glucose [Mass/Vol] 146 mg/dL High 70-99 [facility] Comment on above: Performed By: #### L 100.0100, L500.4050 ####[facility] [address] [place], [address] Potassium [Moles/Vol] 3.4 mmol/L Normal 3.3-5.1 [facility] Comment on above: Performed By: #### L 100.0100, L500.4050 ####[facility] [address] [place], [address] Sodium [Moles/Vol] 131 mmol/L Low 133-145 [facility] Comment on above: Performed By: #### L 100.0100, L500.4050 ####[facility] [address] [place], [address] T PROT 7.0 g/dL Normal 5.9-8.4 [facility] Comment on above: Performed By: #### L 100.0100, L500.4050 ####[facility] [address] [place], [address] Urea nitrogen [Mass/Vol] 40 mg/dL High 4-19 [facility] Comment on above: Performed By: #### L 100.0100, L500.4050 ####[facility] [address] [place], [address] Consultation - Surgicalon Consultation - Surgical Normal [facility] Lower Ext Art Exam w/o Exerc marly 11-14-2024 Lower Ext Art Exam w/o Exercis Normal [facility] Partial Thromboplast Timeon 11-14-2024 aPTT Coag (Bld) [Time] 30.6 s Normal 24.1-36.2 [facility] Comment on above: Performed By: #### L 300.4310 ####[facility] [address] [place], [address] aPTT Coag (Bld) [Time] 55.3 s High 24.1-36.2 [facility] Comment on above: Performed By: #### L 300.4310 ####[facility] [address] [place], [address] aPTT Coag (Bld) [Time] 56.1 s High 24.1-36.2 [facility] Comment on above: Performed By: #### L 300.4310 ####[facility] [address] [place], [address] Urine Cultureon 11-14-2024 URC Culture exhibits no growth. Normal [facility] Comment on above: Performed By: #### L 400.0001, M100.678, M100.2200 ####[facility] [address] [place], [address] 12 Lead EKGon 11-13-2024 12 Lead EKG Normal [facility] CRPon 11-13-2024 C-REACTIVE PROT 10.90 mg/L High 0.0-3.0 [facility] Comment on above: Performed By: #### L 501.6710, L101.9900 ####[facility] [address] [place], [address] Chest PA and Lateralon 11-13 Chest PA and Lateral Normal [facility] Comprehensive Metabolic Prof ilon 11-13-2024 Albumin [Mass/Vol] 4.8 g/dL Normal 3.5-5.0 [facility] Comment on above: Performed By: #### L 300.3900, L300.4310, L503.6005, L500.4050, L501.4021, L503.7505, L100.0100, M200.1000 ####[facility] [address] [place], [address] Albumin/Globulin [Mass ratio] 0.9 {ratio} Normal 0.9-2.4 [facility] Comment on above: Performed By: #### L 300.3900, L300.4310, L503.6005, L500.4050, L501.4021, L503.7505, L100.0100, M200.1000 ####[facility] [address] [place], [address] ALK PHOS 459 U/L High 35-104 [facility] Comment on above: Performed By: #### L 300.3900, L300.4310, L503.6005, L500.4050, L501.4021, L503.7505, L100.0100, M200.1000 ####[facility] [address] [place], [address] ALT [Catalytic activity/Vol] 336 U/L High <=34 [facility] Comment on above: Performed By: #### L 300.3900, L300.4310, L503.6005, L500.4050, L501.4021, L503.7505, L100.0100, M200.1000 ####[facility] [address] [place], [address] AST [Catalytic activity/Vol] 197 U/L High <=31 [facility] Comment on above: Performed By: #### L 300.3900, L300.4310, L503.6005, L500.4050, L501.4021, L503.7505, L100.0100, M200.1000 ####[facility] [address] [place], [address] Bilirubin [Mass/Vol] 1.93 mg/dL High 0.00-1.30 [facility] Comment on above: Performed By: #### L 300.3900, L300.4310, L503.6005, L500.4050, L501.4021, L503.7505, L100.0100, M200.1000 ####[facility] [address] [place], [address] BUN/CRE 17.9 RATIO Normal 10-20 [facility] Comment on above: Performed By: #### L 300.3900, L300.4310, L503.6005, L500.4050, L501.4021, L503.7505, L100.0100, M200.1000 ####[facility] [address] [place], [address] Calcium [Mass/Vol] 11.0 mg/dL Normal 7.6-11.0 [facility] Comment on above: Performed By: #### L 300.3900, L300.4310, L503.6005, L500.4050, L501.4021, L503.7505, L100.0100, M200.1000 ####[facility] [address] [place], [address] Chloride [Moles/Vol] 86 mmol/L Low 98-108 [facility] Comment on above: Performed By: #### L 300.3900, L300.4310, L503.6005, L500.4050, L501.4021, L503.7505, L100.0100, M200.1000 ####[facility] [address] [place], [address] CO2 [Moles/Vol] 17.0 mmol/L Low 21.0-32.0 [facility] Comment on above: Performed By: #### L 300.3900, L300.4310, L503.6005, L500.4050, L501.4021, L503.7505, L100.0100, M200.1000 ####[facility] [address] [place], [address] Creatinine [Mass/Vol] 3.70 mg/dL High 0.70-1.20 [facility] Comment on above: Performed By: #### L 300.3900, L300.4310, L503.6005, L500.4050, L501.4021, L503.7505, L100.0100, M200.1000 ####[facility] [address] [place], [address] ECRCL 22.19 ml/min Low 50-250 [facility] Comment on above: Performed By: #### L 300.3900, L300.4310, L503.6005, L500.4050, L501.4021, L503.7505, L100.0100, M200.1000 ####[facility] [address] [place], [address] GAP 23 High 5-15 [facility] Comment on above: Performed By: #### L 300.3900, L300.4310, L503.6005, L500.4050, L501.4021, L503.7505, L100.0100, M200.1000 ####[facility] [address] [place], [address] GFR/1.73 sq M.predicted among non-blacks MDRD (S/P/Bld) [Vol rate/Area] 15 mL/min/{1.73_m2} Low >60 [facility] Comment on above: Result Comment: mL/m in/1.73m2 CKD-EPI Creatinine Equation (2020) Performed By: #### L 300.3900, L300.4310, L503.6005, L500.4050, L501.4021, L503.7505, L100.0100, M200.1000 ####[facility] [address] [place], [address] Globulin (S) [Mass/Vol] 5.5 g/dL High 2.2-4.2 [facility] Comment on above: Performed By: #### L 300.3900, L300.4310, L503.6005, L500.4050, L501.4021, L503.7505, L100.0100, M200.1000 ####[facility] [address] [place], [address] Glucose [Mass/Vol] 168 mg/dL High 70-99 [facility] Comment on above: Performed By: #### L 300.3900, L300.4310, L503.6005, L500.4050, L501.4021, L503.7505, L100.0100, M200.1000 ####[facility] [address] [place], [address] Potassium [Moles/Vol] 4.1 mmol/L Normal 3.3-5.1 [facility] Comment on above: Performed By: #### L 300.3900, L300.4310, L503.6005, L500.4050, L501.4021, L503.7505, L100.0100, M200.1000 ####[facility] [address] [place], [address] Sodium [Moles/Vol] 126 mmol/L Low 133-145 [facility] Comment on above: Performed By: #### L 300.3900, L300.4310, L503.6005, L500.4050, L501.4021, L503.7505, L100.0100, M200.1000 ####[facility] [address] [place], [address] T PROT 10.3 g/dL High 5.9-8.4 [facility] Comment on above: Performed By: #### L 300.3900, L300.4310, L503.6005, L500.4050, L501.4021, L503.7505, L100.0100, M200.1000 ####[facility] [address] [place], [address] Urea nitrogen [Mass/Vol] 66 mg/dL High 4-19 [facility] Comment on above: Performed By: #### L 300.3900, L300.4310, L503.6005, L500.4050, L501.4021, L503.7505, L100.0100, M200.1000 ####[facility] [address] [place], [address] Emergency Department Summary on 11-13-2024 Emergency Department Summary Normal [facility] Erythrocyte Sed Rateon 11-13 SED RATE 87 mm/hr High 0-30 [facility] Comment on above: Performed By: #### L 501.6710, L101.9900 ####[facility] [address] [place], [address] Foot min 3 Viewson 5 Foot min 3 Views Normal [facility] H AND P Exam - Hospitaliston 11-13-2024 H&P Exam - Hospitalist Normal [facility] L501.4021on 11-13-2024 Trop T High Sen 20 ng/L High <=14 [facility] Comment on above: Performed By: #### L 501.4021 ####[facility] [address] [place], [place], [id number] Trop T High Sen 30 ng/L High <=14 [facility] Comment on above: Performed By: #### L 300.3900, L300.4310, L503.6005, L500.4050, L501.4021, L503.7505, L100.0100, M200.1000 ####[facility] [address] [place], [address] L503.7505on 11-13-2024 Natriuretic peptide B (Bld) [Mass/Vol] 46 pg/mL Normal <=450 [facility] Comment on above: Result Comment: Hear t Failure Unlikely: < 300 pg/mLHeart Failure Likely< 50 Years: > 450 pg/mL50-75 Years: > 900 pg/mL>75 Years: > 1800 pg/mL Performed By: #### L 300.3900, L300.4310, L503.6005, L500.4050, L501.4021, L503.7505, L100.0100, M200.1000 ####[facility] [address] [place], [place], [id number] Lactic Acidon 11-13-2024 Lactate [Moles/Vol] 1.6 mmol/L Normal 0.0-2.0 [facility] Comment on above: Performed By: #### L 503.600 ####[facility] [address] [place], [place], [id number] Lactate [Moles/Vol] 5.8 mmol/L Invalid Interpretation Code 0.0-2.0 [facility] Comment on above: Order Comment: Y Result Comment: Crit ical Result(s) Called at 1343: by: ROSSANA CARLSON. ??Results read back by same. Performed By: #### L 300.3900, L300.4310, L503.6005, L500.4050, L501.4021, L503.7505, L100.0100, M200.1000 ####[facility] [address] [place], [address] M100.678on 11-13-2024 M100.678 Pending SARS-CoV-2 (COVID 19) Negative INFLUENZA A Negative INFLUENZA B Negative RSV PCR Negative Normal [facility] Comment on above: Performed By: #### L 400.0001, M100.678, M100.2200 ####[facility] [address] [place], [address] Partial Thromboplast Timeon 11-13-2024 aPTT Coag (Bld) [Time] 73.1 s High 24.1-36.2 [facility] Comment on above: Performed By: #### L 300.4310 ####[facility] [address] [place], [address] aPTT Coag (Bld) [Time] 29.6 s Normal 24.1-36.2 [facility] Comment on above: Performed By: #### L 300.3900, L300.4310, L503.6005, L500.4050, L501.4021, L503.7505, L100.0100, M200.1000 ####[facility] [address] [place], [address] Prothrombin Time w/INRon INR Coag (PPP) [Relative time] 1.1 {INR} Normal [facility] Comment on above: Performed By: #### L 300.3900, L300.4310, L503.6005, L500.4050, L501.4021, L503.7505, L100.0100, M200.1000 ####[facility] [address] [place], [address] PT Coag (PPP) [Time] 13.9 s Normal 11.7-14.9 [facility] Comment on above: Performed By: #### L 300.3900, L300.4310, L503.6005, L500.4050, L501.4021, L503.7505, L100.0100, M200.1000 ####[facility] [address] [place], [address] Urinalysis, Completeon 11-13 CAST,HYALINE 10-25 SEEN Normal 0-5 [facility] Comment on above: Order Comment: LEO CTOR TO SPECIFY Performed By: #### L 400.0001, M100.678, M100.2200 ####[facility] [address] [place], [address] EPI,SQUAMOUS 0-5 SEEN Normal 5-10 [facility] Comment on above: Order Comment: LEO CTOR TO SPECIFY Performed By: #### L 400.0001, M100.678, M100.2200 ####[facility] [address] [place], [address] WBC 0-5 SEEN Normal 0-5 [facility] Comment on above: Order Comment: LEO CTOR TO SPECIFY Performed By: #### L 400.0001, M100.678, M100.2200 ####[facility] [address] [place], [address] BACTERIA 0 SEEN Normal None Seen [facility] Comment on above: Order Comment: LEO CTOR TO SPECIFY Performed By: #### L 400.0001, M100.678, M100.2200 ####[facility] [address] [place], [address] Mucus Ql (Urine sed) 0 SEEN Normal [facility] Comment on above: Order Comment: COLLE CTOR TO SPECIFY Performed By: #### L 400.0001, M100.678, M100.2200 ####[facility] [address] [place], [address] RBC 0 SEEN Normal 0-5 [facility] Comment on above: Order Comment: COLLE CTOR TO SPECIFY Performed By: #### L 400.0001, M100.678, M100.2200 ####[facility] [address] [place], [address] Basic Metabolic Profile (BMP )on 11-05-2024 BUN/CRE 4.7 RATIO Low 10-20 [facility] Comment on above: Performed By: #### L 500.2500 ####[facility] [address] [place], [address] Calcium [Mass/Vol] 8.6 mg/dL Normal 7.6-11.0 [facility] Comment on above: Performed By: #### L 500.2500 ####[facility] [address] [place], [address] Chloride [Moles/Vol] 110 mmol/L High 98-108 [facility] Comment on above: Performed By: #### L 500.2500 ####[facility] [address] [place], [address] CO2 [Moles/Vol] 19.7 mmol/L Low 21.0-32.0 [facility] Comment on above: Performed By: #### L 500.2500 ####[facility] [address] [place], [address] Creatinine [Mass/Vol] 0.94 mg/dL Normal 0.70-1.20 [facility] Comment on above: Performed By: #### L 500.2500 ####[facility] [address] [place], [address] ECRCL 89.97 ml/min Normal 50-250 [facility] Comment on above: Performed By: #### L 500.2500 ####[facility] [address] [place], [address] GAP 10 Normal 5-15 [facility] Comment on above: Performed By: #### L 500.2500 ####[facility] [address] [place], [address] GFR/1.73 sq M.predicted among non-blacks MDRD (S/P/Bld) [Vol rate/Area] 78 mL/min/{1.73_m2} Normal >60 [facility] Comment on above: Result Comment: mL/m in/1.73m2 CKD-EPI Creatinine Equation (2020) Performed By: #### L 500.2500 ####[facility] [address] [place], [address] Glucose [Mass/Vol] 85 mg/dL Normal 70-99 [facility] Comment on above: Performed By: #### L 500.2500 ####[facility] [address] [place], [address] Potassium [Moles/Vol] 3.7 mmol/L Normal 3.3-5.1 [facility] Comment on above: Performed By: #### L 500.2500 ####[facility] [address] [place], [address] Sodium [Moles/Vol] 139 mmol/L Normal 133-145 [facility] Comment on above: Performed By: #### L 500.2500 ####[facility] [address] [place], [address] Urea nitrogen [Mass/Vol] 4 mg/dL Normal 4-19 [facility] Comment on above: Performed By: #### L 500.2500 ####[facility] [address] [place], [address] Basic Metabolic Profile (BMP )on 05-11-2025 BUN/CRE 3.6 RATIO Low 10-20 [facility] Comment on above: Performed By: #### L 500.2500 ####[facility] [address] [place], [address] Calcium [Mass/Vol] 7.8 mg/dL Normal 7.6-11.0 [facility] Comment on above: Performed By: #### L 500.2500 ####[facility] [address] [place], [address] Chloride [Moles/Vol] 113 mmol/L High 98-108 [facility] Comment on above: Performed By: #### L 500.2500 ####[facility] [address] [place], [address] CO2 [Moles/Vol] 17.3 mmol/L Low 21.0-32.0 [facility] Comment on above: Performed By: #### L 500.2500 ####[facility] [address] [place], [address] Creatinine [Mass/Vol] 0.93 mg/dL Normal 0.70-1.20 [facility] Comment on above: Performed By: #### L 500.2500 ####[facility] [address] [place], [address] ECRCL 90.94 ml/min Normal 50-250 [facility] Comment on above: Performed By: #### L 500.2500 ####[facility] [address] [place], [address] GAP 9 Normal 5-15 [facility] Comment on above: Performed By: #### L 500.2500 ####[facility] [address] [place], [address] GFR/1.73 sq M.predicted among non-blacks MDRD (S/P/Bld) [Vol rate/Area] 79 mL/min/{1.73_m2} Normal >60 [facility] Comment on above: Result Comment: mL/m in/1.73m2 CKD-EPI Creatinine Equation (2020) Performed By: #### L 500.2500 ####[facility] [address] [place], [address] Glucose [Mass/Vol] 96 mg/dL Normal 70-99 [facility] Comment on above: Performed By: #### L 500.2500 ####[facility] [address] [place], [address] Potassium [Moles/Vol] 3.9 mmol/L Normal 3.3-5.1 [facility] Comment on above: Performed By: #### L 500.2500 ####[facility] [address] [place], [address] Sodium [Moles/Vol] 140 mmol/L Normal 133-145 [facility] Comment on above: Performed By: #### L 500.2500 ####[facility] [address] [place], [address] Urea nitrogen [Mass/Vol] 3 mg/dL Low 4-19 [facility] Comment on above: Performed By: #### L 500.2500 ####[facility] [address] [place], [address] Basic Metabolic Profile (BMP )on 11-03-2024 BUN/CRE 4.1 RATIO Low 10-20 [facility] Comment on above: Performed By: #### L 500.2500, L501.5200 ####[facility] [address] [place], [address] Calcium [Mass/Vol] 8.3 mg/dL Normal 7.6-11.0 [facility] Comment on above: Performed By: #### L 500.2500, L501.5200 ####[facility] [address] [place], [address] Chloride [Moles/Vol] 110 mmol/L High 98-108 [facility] Comment on above: Performed By: #### L 500.2500, L501.5200 ####[facility] [address] [place], [address] CO2 [Moles/Vol] 20.6 mmol/L Low 21.0-32.0 [facility] Comment on above: Performed By: #### L 500.2500, L501.5200 ####[facility] [address] [place], [address] Creatinine [Mass/Vol] 0.99 mg/dL Normal 0.70-1.20 [facility] Comment on above: Performed By: #### L 500.2500, L501.5200 ####[facility] [address] [place], [address] ECRCL 85.43 ml/min Normal 50-250 [facility] Comment on above: Performed By: #### L 500.2500, L501.5200 ####[facility] [address] [place], [address] GAP 9 Normal 5-15 [facility] Comment on above: Performed By: #### L 500.2500, L501.5200 ####[facility] [address] [place], [address] GFR/1.73 sq M.predicted among non-blacks MDRD (S/P/Bld) [Vol rate/Area] 74 mL/min/{1.73_m2} Normal >60 [facility] Comment on above: Result Comment: mL/m in/1.73m2 CKD-EPI Creatinine Equation (2020) Performed By: #### L 500.2500, L501.5200 ####[facility] [address] [place], [address] Glucose [Mass/Vol] 100 mg/dL High 70-99 [facility] Comment on above: Performed By: #### L 500.2500, L501.5200 ####[facility] [address] [place], [address] Potassium [Moles/Vol] 3.8 mmol/L Normal 3.3-5.1 [facility] Comment on above: Performed By: #### L 500.2500, L501.5200 ####[facility] [address] [place], [address] Sodium [Moles/Vol] 140 mmol/L Normal 133-145 [facility] Comment on above: Performed By: #### L 500.2500, L501.5200 ####[facility] [address] [place], [address] Urea nitrogen [Mass/Vol] 4 mg/dL Normal 4-19 [facility] Comment on above: Performed By: #### L 500.2500, L501.5200 ####[facility] [address] [place], [address] Magnesiumon 11-03-2024 Magnesium [Mass/Vol] 1.3 mg/dL Low 1.5-2.2 [facility] Comment on above: Performed By: #### L 500.2500, L501.5200 ####[facility] [address] [place], [address] Basic Metabolic Profile (BMP )on 11-02-2024 BUN/CRE 7.2 RATIO Low 10-20 [facility] Comment on above: Performed By: #### L 500.2500 ####[facility] [address] [place], [address] Calcium [Mass/Vol] 8.2 mg/dL Normal 7.6-11.0 [facility] Comment on above: Performed By: #### L 500.2500 ####[facility] [address] [place], [address] Chloride [Moles/Vol] 106 mmol/L Normal 98-108 [facility] Comment on above: Performed By: #### L 500.2500 ####[facility] [address] [place], [address] CO2 [Moles/Vol] 22.3 mmol/L Normal 21.0-32.0 [facility] Comment on above: Performed By: #### L 500.2500 ####[facility] [address] [place], [address] Creatinine [Mass/Vol] 0.96 mg/dL Normal 0.70-1.20 [facility] Comment on above: Performed By: #### L 500.2500 ####[facility] [address] [place], [address] ECRCL 88.09 ml/min Normal 50-250 [facility] Comment on above: Performed By: #### L 500.2500 ####[facility] [address] [place], [address] GAP 11 Normal 5-15 [facility] Comment on above: Performed By: #### L 500.2500 ####[facility] [address] [place], [address] GFR/1.73 sq M.predicted among non-blacks MDRD (S/P/Bld) [Vol rate/Area] 76 mL/min/{1.73_m2} Normal >60 [facility] Comment on above: Result Comment: mL/m in/1.73m2 CKD-EPI Creatinine Equation (2020) Performed By: #### L 500.2500 ####[facility] [address] [place], [address] Glucose [Mass/Vol] 79 mg/dL Normal 70-99 [facility] Comment on above: Performed By: #### L 500.2500 ####[facility] [address] [place], [address] Potassium [Moles/Vol] 3.0 mmol/L Low 3.3-5.1 [facility] Comment on above: Performed By: #### L 500.2500 ####[facility] [address] [place], [address] Sodium [Moles/Vol] 139 mmol/L Normal 133-145 [facility] Comment on above: Performed By: #### L 500.2500 ####[facility] [address] [place], [address] Urea nitrogen [Mass/Vol] 7 mg/dL Normal 4-19 [facility] Comment on above: Performed By: #### L 500.2500 ####[facility] [address] [place], [address] Basic Metabolic Profile (BMP )on 11-01-2024 BUN/CRE 8.6 RATIO Low 10-20 [facility] Comment on above: Performed By: #### L 500.2500 ####[facility] [address] [place], [address] Calcium [Mass/Vol] 8.5 mg/dL Normal 7.6-11.0 [facility] Comment on above: Performed By: #### L 500.2500 ####[facility] [address] [place], [address] Chloride [Moles/Vol] 102 mmol/L Normal 98-108 [facility] Comment on above: Performed By: #### L 500.2500 ####[facility] [address] [place], [address] CO2 [Moles/Vol] 24.0 mmol/L Normal 21.0-32.0 [facility] Comment on above: Performed By: #### L 500.2500 ####[facility] [address] [place], [address] Creatinine [Mass/Vol] 1.01 mg/dL Normal 0.70-1.20 [facility] Comment on above: Performed By: #### L 500.2500 ####[facility] [address] [place], [address] ECRCL 83.73 ml/min Normal 50-250 [facility] Comment on above: Performed By: #### L 500.2500 ####[facility] [address] [place], [address] GAP 10 Normal 5-15 [facility] Comment on above: Performed By: #### L 500.2500 ####[facility] [address] [place], [address] GFR/1.73 sq M.predicted among non-blacks MDRD (S/P/Bld) [Vol rate/Area] 72 mL/min/{1.73_m2} Normal >60 [facility] Comment on above: Result Comment: mL/m in/1.73m2 CKD-EPI Creatinine Equation (2020) Performed By: #### L 500.2500 ####[facility] [address] [place], [address] Glucose [Mass/Vol] 90 mg/dL Normal 70-99 [facility] Comment on above: Performed By: #### L 500.2500 ####[facility] [address] [place], [address] Potassium [Moles/Vol] 3.2 mmol/L Low 3.3-5.1 [facility] Comment on above: Performed By: #### L 500.2500 ####[facility] [address] [place], [address] Sodium [Moles/Vol] 136 mmol/L Normal 133-145 [facility] Comment on above: Performed By: #### L 500.2500 ####[facility] [address] [place], [address] Urea nitrogen [Mass/Vol] 9 mg/dL Normal 4-19 [facility] Comment on above: Performed By: #### L 500.2500 ####[facility] [address] [place], [address] Basic Metabolic Profile (BMP )on 10-31-2024 BUN/CRE 10.7 RATIO Normal 10-20 [facility] Comment on above: Performed By: #### L 100.0500, L500.2500 ####[facility] [address] [place], [address] Calcium [Mass/Vol] 8.6 mg/dL Normal 7.6-11.0 [facility] Comment on above: Performed By: #### L 100.0500, L500.2500 ####[facility] [address] [place], [address] Chloride [Moles/Vol] 100 mmol/L Normal 98-108 [facility] Comment on above: Performed By: #### L 100.0500, L500.2500 ####[facility] [address] [place], [address] CO2 [Moles/Vol] 21.6 mmol/L Normal 21.0-32.0 [facility] Comment on above: Performed By: #### L 100.0500, L500.2500 ####[facility] [address] [place], [address] Creatinine [Mass/Vol] 1.04 mg/dL Normal 0.70-1.20 [facility] Comment on above: Performed By: #### L 100.0500, L500.2500 ####[facility] [address] [place], [address] ECRCL 81.32 ml/min Normal 50-250 [facility] Comment on above: Performed By: #### L 100.0500, L500.2500 ####[facility] [address] [place], [address] GAP 13 Normal 5-15 [facility] Comment on above: Performed By: #### L 100.0500, L500.2500 ####[facility] [address] [place], [address] GFR/1.73 sq M.predicted among non-blacks MDRD (S/P/Bld) [Vol rate/Area] 69 mL/min/{1.73_m2} Normal >60 [facility] Comment on above: Result Comment: mL/m in/1.73m2 CKD-EPI Creatinine Equation (2020) Performed By: #### L 100.0500, L500.2500 ####[facility] [address] [place], [address] Glucose [Mass/Vol] 91 mg/dL Normal 70-99 [facility] Comment on above: Performed By: #### L 100.0500, L500.2500 ####[facility] [address] [place], [address] Potassium [Moles/Vol] 3.2 mmol/L Low 3.3-5.1 [facility] Comment on above: Performed By: #### L 100.0500, L500.2500 ####[facility] [address] [place], [address] Sodium [Moles/Vol] 135 mmol/L Normal 133-145 [facility] Comment on above: Performed By: #### L 100.0500, L500.2500 ####[facility] [address] [place], [address] Urea nitrogen [Mass/Vol] 11 mg/dL Normal 4-19 [facility] Comment on above: Performed By: #### L 100.0500, L500.2500 ####[facility] [address] [place], [address] CBC-Complete Blood Cnt No Di ffon 10-31-2024 Erythrocyte distribution width (RBC) [Ratio] 15.1 % High 11.6-14.6 [facility] Comment on above: Performed By: #### L 100.0500, L500.2500 ####[facility] [address] [place], [address] Hematocrit (Bld) [Volume fraction] 28.9 % Low 37-47 [facility] Comment on above: Performed By: #### L 100.0500, L500.2500 ####[facility] [address] [place], [address] Hemoglobin (Bld) [Mass/Vol] 8.9 g/dL Low 12.0-15.0 [facility] Comment on above: Performed By: #### L 100.0500, L500.2500 ####[facility] [address] [place], [address] MCH (RBC) [Entitic mass] 24.4 pg Low 27.0-32.0 [facility] Comment on above: Performed By: #### L 100.0500, L500.2500 ####[facility] [address] [place], [address] MCHC (RBC) [Mass/Vol] 30.8 g/dL Low 32-36 [facility] Comment on above: Performed By: #### L 100.0500, L500.2500 ####[facility] [address] [place], [address] MCV (RBC) [Entitic vol] 79.2 fL Low 81-99 [facility] Comment on above: Performed By: #### L 100.0500, L500.2500 ####[facility] [address] [place], [address] Platelet mean volume (Bld) [Entitic vol] 9.0 fL Normal 6.2-12.0 [facility] Comment on above: Performed By: #### L 100.0500, L500.2500 ####[facility] [address] [place], [address] Platelets (Bld) [#/Vol] 357 10*3/uL Normal 150-450 [facility] Comment on above: Performed By: #### L 100.0500, L500.2500 ####[facility] [address] [place], [address] RBC (Bld) [#/Vol] 3.65 10*6/uL Low 4.2-5.4 [facility] Comment on above: Performed By: #### L 100.0500, L500.2500 ####[facility] [address] [place], [address] RDW SD 43.3 fl Normal 35.1-43.9 [facility] Comment on above: Performed By: #### L 100.0500, L500.2500 ####[facility] [address] [place], [address] WBC (Bld) [#/Vol] 4.9 10*3/uL Normal 4.4-11.0 [facility] Comment on above: Performed By: #### L 100.0500, L500.2500 ####[facility] [address] [place], [address] Basic Metabolic Profile (BMP )on 10-30-2024 BUN/CRE 14.8 RATIO Normal 10-20 [facility] Comment on above: Performed By: #### L 100.0100, L500.2500 ####[facility] [address] [place], [address] Calcium [Mass/Vol] 8.6 mg/dL Normal 7.6-11.0 [facility] Comment on above: Performed By: #### L 100.0100, L500.2500 ####[facility] [address] [place], [address] Chloride [Moles/Vol] 100 mmol/L Normal 98-108 [facility] Comment on above: Performed By: #### L 100.0100, L500.2500 ####[facility] [address] [place], [address] CO2 [Moles/Vol] 22.0 mmol/L Normal 21.0-32.0 [facility] Comment on above: Performed By: #### L 100.0100, L500.2500 ####[facility] [address] [place], [address] Creatinine [Mass/Vol] 1.26 mg/dL High 0.70-1.20 [facility] Comment on above: Performed By: #### L 100.0100, L500.2500 ####[facility] [address] [place], [address] ECRCL 67.12 ml/min Normal 50-250 [facility] Comment on above: Performed By: #### L 100.0100, L500.2500 ####[facility] [address] [place], [address] GAP 14 Normal 5-15 [facility] Comment on above: Performed By: #### L 100.0100, L500.2500 ####[facility] [address] [place], [address] GFR/1.73 sq M.predicted among non-blacks MDRD (S/P/Bld) [Vol rate/Area] 55 mL/min/{1.73_m2} Low >60 [facility] Comment on above: Result Comment: mL/m in/1.73m2 CKD-EPI Creatinine Equation (2020) Performed By: #### L 100.0100, L500.2500 ####[facility] [address] [place], [address] Glucose [Mass/Vol] 96 mg/dL Normal 70-99 [facility] Comment on above: Performed By: #### L 100.0100, L500.2500 ####[facility] [address] [place], [address] Potassium [Moles/Vol] 3.6 mmol/L Normal 3.3-5.1 [facility] Comment on above: Performed By: #### L 100.0100, L500.2500 ####[facility] [address] [place], [address] Sodium [Moles/Vol] 135 mmol/L Normal 133-145 [facility] Comment on above: Performed By: #### L 100.0100, L500.2500 ####[facility] [address] [place], [address] Urea nitrogen [Mass/Vol] 19 mg/dL Normal 4-19 [facility] Comment on above: Performed By: #### L 100.0100, L500.2500 ####[facility] [address] [place], [address] CBC W/Diff, Automatedon 05-0 6-2025 Absolute Lymph 2.28 X10 3/uL Normal 0.83-4.51 [facility] Comment on above: Performed By: #### L 100.0100, L500.2500 ####[facility] [address] [place], [address] Absolute Neut 2.8 X10 3/uL Normal 2.0-7.7 [facility] Comment on above: Performed By: #### L 100.0100, L500.2500 ####[facility] [address] [place], [address] Basophils/100 WBC (Bld) 0.9 % Normal 0-1 [facility] Comment on above: Performed By: #### L 100.0100, L500.2500 ####[facility] [address] [place], [address] Eosinophils/100 WBC (Bld) 2.6 % Normal 0-5 [facility] Comment on above: Performed By: #### L 100.0100, L500.2500 ####[facility] [address] [place], [address] Erythrocyte distribution width (RBC) [Ratio] 15.1 % High 11.6-14.6 [facility] Comment on above: Performed By: #### L 100.0100, L500.2500 ####[facility] [address] [place], [address] Hematocrit (Bld) [Volume fraction] 28.3 % Low 37-47 [facility] Comment on above: Performed By: #### L 100.0100, L500.2500 ####[facility] [address] [place], [address] Hemoglobin (Bld) [Mass/Vol] 9.1 g/dL Low 12.0-15.0 [facility] Comment on above: Performed By: #### L 100.0100, L500.2500 ####[facility] [address] [place], [address] IG% 0.200 Normal 0.0-0.9 [facility] Comment on above: Result Comment: IG% - Immature Granulocytes (promyelocytes, myelocytes andmetamyelocytes) > 1% indicates that a LEFT SHIFT is Present. Performed By: #### L 100.0100, L500.2500 ####[facility] [address] [place], [address] Lymphocytes/100 WBC (Bld) 39.1 % Normal 19-41 [facility] Comment on above: Performed By: #### L 100.0100, L500.2500 ####[facility] [address] [place], [address] MCH (RBC) [Entitic mass] 24.7 pg Low 27.0-32.0 [facility] Comment on above: Performed By: #### L 100.0100, L500.2500 ####[facility] [address] [place], [address] MCHC (RBC) [Mass/Vol] 32.2 g/dL Normal 32-36 [facility] Comment on above: Performed By: #### L 100.0100, L500.2500 ####[facility] [address] [place], [address] MCV (RBC) [Entitic vol] 76.9 fL Low 81-99 [facility] Comment on above: Performed By: #### L 100.0100, L500.2500 ####[facility] [address] [place], [address] Monocytes/100 WBC (Bld) 8.9 % Normal 0-10 [facility] Comment on above: Performed By: #### L 100.0100, L500.2500 ####[facility] [address] [place], [address] Neutrophils/100 WBC (Bld) 48.3 % Normal 47-70 [facility] Comment on above: Performed By: #### L 100.0100, L500.2500 ####[facility] [address] [place], [address] Nucleated RBC (Bld) [#/Vol] 0 10*3/uL Normal 0-5 [facility] Comment on above: Performed By: #### L 100.0100, L500.2500 ####[facility] [address] [place], [address] Platelet mean volume (Bld) [Entitic vol] 9.0 fL Normal 6.2-12.0 [facility] Comment on above: Performed By: #### L 100.0100, L500.2500 ####[facility] [address] [place], [address] Platelets (Bld) [#/Vol] 403 10*3/uL Normal 150-450 [facility] Comment on above: Performed By: #### L 100.0100, L500.2500 ####[facility] [address] [place], [address] RBC (Bld) [#/Vol] 3.68 10*6/uL Low 4.2-5.4 [facility] Comment on above: Performed By: #### L 100.0100, L500.2500 ####[facility] [address] [place], [address] RDW SD 41.8 fl Normal 35.1-43.9 [facility] Comment on above: Performed By: #### L 100.0100, L500.2500 ####[facility] [address] [place], [address] WBC (Bld) [#/Vol] 5.8 10*3/uL Normal 4.4-11.0 [facility] Comment on above: Performed By: #### L 100.0100, L500.2500 ####[facility] [address] [place], [address] Basic Metabolic Profile (BMP )on 10-29-2024 BUN/CRE 15.4 RATIO Normal 10-20 [facility] Comment on above: Performed By: #### L 501.5200, L100.0100, L500.2500, L501.2300 ####[facility] [address] [place], [address] Calcium [Mass/Vol] 8.5 mg/dL Normal 7.6-11.0 [facility] Comment on above: Performed By: #### L 501.5200, L100.0100, L500.2500, L501.2300 ####[facility] [address] [place], [address] Chloride [Moles/Vol] 95 mmol/L Low 98-108 [facility] Comment on above: Performed By: #### L 501.5200, L100.0100, L500.2500, L501.2300 ####[facility] [address] [place], [address] CO2 [Moles/Vol] 23.1 mmol/L Normal 21.0-32.0 [facility] Comment on above: Performed By: #### L 501.5200, L100.0100, L500.2500, L501.2300 ####[facility] [address] [place], [address] Creatinine [Mass/Vol] 1.93 mg/dL High 0.70-1.20 [facility] Comment on above: Performed By: #### L 501.5200, L100.0100, L500.2500, L501.2300 ####[facility] [address] [place], [address] ECRCL 43.82 ml/min Low 50-250 [facility] Comment on above: Performed By: #### L 501.5200, L100.0100, L500.2500, L501.2300 ####[facility] [address] [place], [address] GAP 12 Normal 5-15 [facility] Comment on above: Performed By: #### L 501.5200, L100.0100, L500.2500, L501.2300 ####[facility] [address] [place], [address] GFR/1.73 sq M.predicted among non-blacks MDRD (S/P/Bld) [Vol rate/Area] 33 mL/min/{1.73_m2} Low >60 [facility] Comment on above: Result Comment: mL/m in/1.73m2 CKD-EPI Creatinine Equation (2020) Performed By: #### L 501.5200, L100.0100, L500.2500, L501.2300 ####[facility] [address] [place], [address] Glucose [Mass/Vol] 100 mg/dL High 70-99 [facility] Comment on above: Performed By: #### L 501.5200, L100.0100, L500.2500, L501.2300 ####[facility] [address] [place], [address] Potassium [Moles/Vol] 3.5 mmol/L Normal 3.3-5.1 [facility] Comment on above: Performed By: #### L 501.5200, L100.0100, L500.2500, L501.2300 ####[facility] [address] [place], [address] Sodium [Moles/Vol] 131 mmol/L Low 133-145 [facility] Comment on above: Performed By: #### L 501.5200, L100.0100, L500.2500, L501.2300 ####[facility] [address] [place], [address] Urea nitrogen [Mass/Vol] 30 mg/dL High 4-19 [facility] Comment on above: Performed By: #### L 501.5200, L100.0100, L500.2500, L501.2300 ####[facility] [address] [place], [address] CBC W/Diff, Automatedon 05-0 -2024 Absolute Lymph 1.54 X10 3/uL Normal 0.83-4.51 [facility] Comment on above: Performed By: #### L 501.5200, L100.0100, L500.2500, L501.2300 ####[facility] [address] [place], [address] Absolute Neut 3.2 X10 3/uL Normal 2.0-7.7 [facility] Comment on above: Performed By: #### L 501.5200, L100.0100, L500.2500, L501.2300 ####[facility] [address] [place], [address] Basophils/100 WBC (Bld) 0.6 % Normal 0-1 [facility] Comment on above: Performed By: #### L 501.5200, L100.0100, L500.2500, L501.2300 ####[facility] [address] [place], [address] Eosinophils/100 WBC (Bld) 1.5 % Normal 0-5 [facility] Comment on above: Performed By: #### L 501.5200, L100.0100, L500.2500, L501.2300 ####[facility] [address] [place], [address] Erythrocyte distribution width (RBC) [Ratio] 15.2 % High 11.6-14.6 [facility] Comment on above: Performed By: #### L 501.5200, L100.0100, L500.2500, L501.2300 ####[facility] [address] [place], [address] Hematocrit (Bld) [Volume fraction] 27.2 % Low 37-47 [facility] Comment on above: Performed By: #### L 501.5200, L100.0100, L500.2500, L501.2300 ####[facility] [address] [place], [address] Hemoglobin (Bld) [Mass/Vol] 8.8 g/dL Low 12.0-15.0 [facility] Comment on above: Performed By: #### L 501.5200, L100.0100, L500.2500, L501.2300 ####[facility] [address] [place], [address] IG% 0.400 Normal 0.0-0.9 [facility] Comment on above: Result Comment: IG% - Immature Granulocytes (promyelocytes, myelocytes andmetamyelocytes) > 1% indicates that a LEFT SHIFT is Present. Performed By: #### L 501.5200, L100.0100, L500.2500, L501.2300 ####[facility] [address] [place], [address] Lymphocytes/100 WBC (Bld) 28.9 % Normal 19-41 [facility] Comment on above: Performed By: #### L 501.5200, L100.0100, L500.2500, L501.2300 ####[facility] [address] [place], [address] MCH (RBC) [Entitic mass] 24.4 pg Low 27.0-32.0 [facility] Comment on above: Performed By: #### L 501.5200, L100.0100, L500.2500, L501.2300 ####[facility] [address] [place], [address] MCHC (RBC) [Mass/Vol] 32.4 g/dL Normal 32-36 [facility] Comment on above: Performed By: #### L 501.5200, L100.0100, L500.2500, L501.2300 ####[facility] [address] [place], [address] MCV (RBC) [Entitic vol] 75.3 fL Low 81-99 [facility] Comment on above: Performed By: #### L 501.5200, L100.0100, L500.2500, L501.2300 ####[facility] [address] [place], [address] Monocytes/100 WBC (Bld) 9.4 % Normal 0-10 [facility] Comment on above: Performed By: #### L 501.5200, L100.0100, L500.2500, L501.2300 ####[facility] [address] [place], [address] Neutrophils/100 WBC (Bld) 59.2 % Normal 47-70 [facility] Comment on above: Performed By: #### L 501.5200, L100.0100, L500.2500, L501.2300 ####[facility] [address] [place], [address] Nucleated RBC (Bld) [#/Vol] 0 10*3/uL Normal 0-5 [facility] Comment on above: Performed By: #### L 501.5200, L100.0100, L500.2500, L501.2300 ####[facility] [address] [place], [address] Platelet mean volume (Bld) [Entitic vol] 9.3 fL Normal 6.2-12.0 [facility] Comment on above: Performed By: #### L 501.5200, L100.0100, L500.2500, L501.2300 ####[facility] [address] [place], [address] Platelets (Bld) [#/Vol] 396 10*3/uL Normal 150-450 [facility] Comment on above: Performed By: #### L 501.5200, L100.0100, L500.2500, L501.2300 ####[facility] [address] [place], [address] RBC (Bld) [#/Vol] 3.61 10*6/uL Low 4.2-5.4 [facility] Comment on above: Performed By: #### L 501.5200, L100.0100, L500.2500, L501.2300 ####[facility] [address] [place], [address] RDW SD 41.3 fl Normal 35.1-43.9 [facility] Comment on above: Performed By: #### L 501.5200, L100.0100, L500.2500, L501.2300 ####[facility] [address] [place], [address] WBC (Bld) [#/Vol] 5.3 10*3/uL Normal 4.4-11.0 [facility] Comment on above: Performed By: #### L 501.5200, L100.0100, L500.2500, L501.2300 ####[facility] [address] [place], [address] CDIFF (PCR)on 10-29-2024 CDIFF Is the patient recei ving laxatives? N New/unexplained onset of 3 or more stools in past 24 hrs? Y Pending 027 027 NAP1-B1 Presumptive Negative *for epidemiolologic???use C. Diff PCR Negative- No toxigenic C. Diff Detected Normal [facility] Comment on above: Performed By: #### M 100.6784 ####[facility] [address] [place], [address] ENTERIC PATHOGEN PANEL STOOL on 10-29-2024 EP PANEL CAMPYLOBACTER Not Detected Norovirus Not Detected Rotavirus Not Detected Salmonella Not Detected Shiga Toxin Not Detected Shigella sp. Not Detected VIBRIO Not Detected Yersinia Not Detected Normal [facility] Comment on above: Performed By: #### M 100.637 ####[facility] [address] [place], [address] Magnesiumon 10-29-2024 Magnesium [Mass/Vol] 1.5 mg/dL Normal 1.5-2.2 [facility] Comment on above: Performed By: #### L 501.5200, L100.0100, L500.2500, L501.2300 ####[facility] [address] [place], [address] Phosphoruson 10-29-2024 Phosphate [Mass/Vol] 4.0 mg/dL Normal 2.7-4.5 [facility] Comment on above: Performed By: #### L 501.5200, L100.0100, L500.2500, L501.2300 ####[facility] [address] [place], [address] Basic Metabolic Profile (BMP )on 10-28-2024 BUN/CRE 10.4 RATIO Normal 10-20 [facility] Comment on above: Performed By: #### L 100.0100, L501.5200, L500.2500 ####[facility] [address] [place], [address] Calcium [Mass/Vol] 10.5 mg/dL Normal 7.6-11.0 [facility] Comment on above: Performed By: #### L 100.0100, L501.5200, L500.2500 ####[facility] [address] [place], [address] Chloride [Moles/Vol] 81 mmol/L Low 98-108 [facility] Comment on above: Performed By: #### L 100.0100, L501.5200, L500.2500 ####[facility] [address] [place], [address] CO2 [Moles/Vol] 20.9 mmol/L Low 21.0-32.0 [facility] Comment on above: Performed By: #### L 100.0100, L501.5200, L500.2500 ####[facility] [address] [place], [address] Creatinine [Mass/Vol] 3.36 mg/dL High 0.70-1.20 [facility] Comment on above: Performed By: #### L 100.0100, L501.5200, L500.2500 ####[facility] [address] [place], [address] ECRCL 24.64 ml/min Low 50-250 [facility] Comment on above: Performed By: #### L 100.0100, L501.5200, L500.2500 ####[facility] [address] [place], [address] GAP 26 High 5-15 [facility] Comment on above: Performed By: #### L 100.0100, L501.5200, L500.2500 ####[facility] [address] [place], [address] GFR/1.73 sq M.predicted among non-blacks MDRD (S/P/Bld) [Vol rate/Area] 17 mL/min/{1.73_m2} Low >60 [facility] Comment on above: Result Comment: mL/m in/1.73m2 CKD-EPI Creatinine Equation (2020) Performed By: #### L 100.0100, L501.5200, L500.2500 ####[facility] [address] [place], [address] Glucose [Mass/Vol] 165 mg/dL High 70-99 [facility] Comment on above: Performed By: #### L 100.0100, L501.5200, L500.2500 ####[facility] [address] [place], [address] Potassium [Moles/Vol] 4.5 mmol/L Normal 3.3-5.1 [facility] Comment on above: Result Comment: Hemo lysis present, Results??could be affected.?? Performed By: #### L 100.0100, L501.5200, L500.2500 ####[facility] [address] [place], [address] Sodium [Moles/Vol] 127 mmol/L Low 133-145 [facility] Comment on above: Performed By: #### L 100.0100, L501.5200, L500.2500 ####[facility] [address] [place], [address] Urea nitrogen [Mass/Vol] 35 mg/dL High 4-19 [facility] Comment on above: Performed By: #### L 100.0100, L501.5200, L500.2500 ####[facility] [address] [place], [address] CBC W/Diff, Automatedon 05-0 4-2025 Absolute Lymph 2.13 X10 3/uL Normal 0.83-4.51 [facility] Comment on above: Performed By: #### L 100.0100, L501.5200, L500.2500 ####[facility] [address] [place], [address] Absolute Neut 9.2 X10 3/uL High 2.0-7.7 [facility] Comment on above: Performed By: #### L 100.0100, L501.5200, L500.2500 ####[facility] [address] [place], [address] Basophils/100 WBC (Bld) 0.4 % Normal 0-1 [facility] Comment on above: Performed By: #### L 100.0100, L501.5200, L500.2500 ####[facility] [address] [place], [address] Eosinophils/100 WBC (Bld) 0.1 % Normal 0-5 [facility] Comment on above: Performed By: #### L 100.0100, L501.5200, L500.2500 ####[facility] [address] [place], [address] Erythrocyte distribution width (RBC) [Ratio] 15.5 % High 11.6-14.6 [facility] Comment on above: Performed By: #### L 100.0100, L501.5200, L500.2500 ####[facility] [address] [place], [address] Hematocrit (Bld) [Volume fraction] 38.3 % Normal 37-47 [facility] Comment on above: Performed By: #### L 100.0100, L501.5200, L500.2500 ####[facility] [address] [place], [address] Hemoglobin (Bld) [Mass/Vol] 12.2 g/dL Normal 12.0-15.0 [facility] Comment on above: Performed By: #### L 100.0100, L501.5200, L500.2500 ####[facility] [address] [place], [address] IG% 0.500 Normal 0.0-0.9 [facility] Comment on above: Result Comment: IG% - Immature Granulocytes (promyelocytes, myelocytes andmetamyelocytes) > 1% indicates that a LEFT SHIFT is Present. Performed By: #### L 100.0100, L501.5200, L500.2500 ####[facility] [address] [place], [address] Lymphocytes/100 WBC (Bld) 17.1 % Low 19-41 [facility] Comment on above: Performed By: #### L 100.0100, L501.5200, L500.2500 ####[facility] [address] [place], [address] MCH (RBC) [Entitic mass] 24.4 pg Low 27.0-32.0 [facility] Comment on above: Performed By: #### L 100.0100, L501.5200, L500.2500 ####[facility] [address] [place], [address] MCHC (RBC) [Mass/Vol] 31.9 g/dL Low 32-36 [facility] Comment on above: Performed By: #### L 100.0100, L501.5200, L500.2500 ####[facility] [address] [place], [address] MCV (RBC) [Entitic vol] 76.4 fL Low 81-99 [facility] Comment on above: Performed By: #### L 100.0100, L501.5200, L500.2500 ####[facility] [address] [place], [address] Monocytes/100 WBC (Bld) 7.7 % Normal 0-10 [facility] Comment on above: Performed By: #### L 100.0100, L501.5200, L500.2500 ####[facility] [address] [place], [address] Neutrophils/100 WBC (Bld) 74.2 % High 47-70 [facility] Comment on above: Performed By: #### L 100.0100, L501.5200, L500.2500 ####[facility] [address] [place], [address] Nucleated RBC (Bld) [#/Vol] 0 10*3/uL Normal 0-5 [facility] Comment on above: Performed By: #### L 100.0100, L501.5200, L500.2500 ####[facility] [address] [place], [address] Platelet mean volume (Bld) [Entitic vol] 10.1 fL Normal 6.2-12.0 [facility] Comment on above: Performed By: #### L 100.0100, L501.5200, L500.2500 ####[facility] [address] [place], [address] Platelets (Bld) [#/Vol] 675 10*3/uL High 150-450 [facility] Comment on above: Performed By: #### L 100.0100, L501.5200, L500.2500 ####[facility] [address] [place], [address] RBC (Bld) [#/Vol] 5.01 10*6/uL Normal 4.2-5.4 [facility] Comment on above: Performed By: #### L 100.0100, L501.5200, L500.2500 ####[facility] [address] [place], [address] RDW SD 41.5 fl Normal 35.1-43.9 [facility] Comment on above: Performed By: #### L 100.0100, L501.5200, L500.2500 ####[facility] [address] [place], [address] WBC (Bld) [#/Vol] 12.4 10*3/uL High 4.4-11.0 [facility] Comment on above: Performed By: #### L 100.0100, L501.5200, L500.2500 ####[facility] [address] [place], [address] Emergency Department Summary on 10-28-2024 Emergency Department Summary Normal [facility] H AND P Exam - Hospitaliston 10-28-2024 H&P Exam - Hospitalist Normal [facility] Magnesiumon 10-28-2024 Magnesium [Mass/Vol] 1.7 mg/dL Normal 1.5-2.2 [facility] Comment on above: Performed By: #### L 100.0100, L501.5200, L500.2500 ####[facility] [address] [place], [address] ALLIED HEALTHon 10-26-2024 ALLIED HEALTH HNO ID: [id number] Author: STEFANY CALVERT RN Service: Wound/Ostomy Author [...] x 1 1/4 Oval (Coloplast 2Pc Pouch #76386 Convex Wafer #[id number]) Placed Attached 2pc Pouch Over Over Stoma [...] Independent Recommended Supplies: Coloplast 2pc High Output #28361 Pouch attached to drainage bag Coloplast #[id number] Convex Wafer Cut To 1 1/2 x 1 1/4 Oval [place] #0579 Large Barrier Ring [place] Barrier Extenders # [id number] Please Advise Wound Care [phone] If You Have Difficulty Getting Supplies From Cart Room. Patient tolerated the change well. Supplies at bedside. If additional ostomy supplies are needed, please call [employer] ([phone]) for above mentioned supplies. If supplies are unavailable in [employer], please secure chat [facility] Nurses or call extension [phone] to request more supplies. Normal [facility] CBC panel Auto (Bld)on 10-26 Erythrocyte distribution width (RBC) [Ratio] 14.7 % Normal 11.5-15.0 [facility] Comment on above: Order Comment: Speci men Type: BLOOD SPECIMEN Ordering Facility: [facility] Address: [address] [place] [address] Performed By: #### 5 7021-8 #### [facility] CLIA [id number] [address] [place] [address] [place] Hematocrit (Bld) [Volume fraction] 29.9 % Low 36.0-46.0 [facility] Comment on above: Order Comment: Speci men Type: BLOOD SPECIMEN Ordering Facility: [facility] Address: [address] [place] [address] Performed By: #### 5 7021-8 #### [facility] CLIA [id number] [address] [place] [address] [place] Hemoglobin (Bld) [Mass/Vol] 9.2 g/dL Low 11.5-15.5 [facility] Comment on above: Order Comment: Speci men Type: BLOOD SPECIMEN Ordering Facility: [facility] Address: [address] [place] [address] Performed By: #### 5 7021-8 #### [facility] CLIA [id number] [address] [place] [address] [place] MCH (RBC) [Entitic mass] 24.1 pg Low 26.0-34.0 [facility] Comment on above: Order Comment: Speci men Type: BLOOD SPECIMEN Ordering Facility: [facility] Address: [address] [place] [address] Performed By: #### 5 7021-8 #### [facility] CLIA [id number] [address] [place] [address] [place] MCHC (RBC) [Mass/Vol] 30.8 g/dL Normal 30.5-36.0 [facility] Comment on above: Order Comment: Speci men Type: BLOOD SPECIMEN Ordering Facility: [facility] Address: [address] [place] [address] Performed By: #### 5 7021-8 #### [facility] CLIA [id number] [address] [place] [address] [place] MCV (RBC) [Entitic vol] 78.5 fL Low 80.0-100.0 [facility] Comment on above: Order Comment: Speci men Type: BLOOD SPECIMEN Ordering Facility: [facility] Address: [address] [place] [address] Performed By: #### 5 7021-8 #### [facility] CLIA [id number] [address] [place] [address] [place] Nucleated RBC (Bld) [#/Vol] 10*3/uL Normal <0.01 [facility] Comment on above: Order Comment: Speci men Type: BLOOD SPECIMEN Ordering Facility: [facility] Address: [address] [place] [address] Performed By: #### 5 7021-8 #### [facility] CLIA [id number] [address] [place] [address] [place] Platelet mean volume (Bld) [Entitic vol] 8.9 fL Low 9.0-12.7 [facility] Comment on above: Order Comment: Speci men Type: BLOOD SPECIMEN Ordering Facility: [facility] Address: [address] [place] [address] Performed By: #### 5 7021-8 #### [facility] CLIA [id number] [address] [place] [address] [place] Platelets (Bld) [#/Vol] 371 10*3/uL Normal 150-400 [facility] Comment on above: Order Comment: Speci men Type: BLOOD SPECIMEN Ordering Facility: [facility] Address: [address] [place] [address] Performed By: #### 5 7021-8 #### [facility] CLIA [id number] [address] [place], [place] [id number] [place] RBC (Bld) [#/Vol] 3.81 10*6/uL Low 3.90-5.20 [facility] Comment on above: Order Comment: Speci men Type: BLOOD SPECIMEN Ordering Facility: [facility] Address: [address] [place] [address] Performed By: #### 5 7021-8 #### [facility] CLIA [id number] [address] [place], [place] [id number] [facility] WBC (Bld) [#/Vol] 4.79 10*3/uL Normal 3.70-11.00 [facility] Comment on above: Order Comment: Speci men Type: BLOOD SPECIMEN Ordering Facility: [facility] Address: [address] [place] [address] Performed By: #### 5 7021-8 #### [facility] CLIA [id number] [address] [place], [place] [id number] [facility] CNDSon 10-26-2024 CNDS HNO ID: [id number] Author: WILLIS EMMANUEL DO Service: Hospital Medicine [...] resection with ostomy Patient sent to an outlying ED due to high output ostomy She had evidence of renal failure as well as multiple electrolyte abnormalities (see below) Gastroenterology consulted C. diff negative Stool PCR negative Home Imodium dose was increased Ostomy care offered Output did lessen Patient will follow-up at [facility] with her surgeon Dr. Smith as well as transplant surgeon Dr. Devine Acute kidney injury Creatinine 2.8 in [facility] ED Likely secondary to GI losses Patient given IV fluids Creatinine normalized by discharge Hyponatremia Sodium 130 in [facility] ED Likely secondary to GI losses Patient given IV fluids Hypokalemia Potassium 3.3 in [facility] ED Likely secondary to GI losses Supplementation provided Rx for potassium chloride provided on discharge Left foot discoloration, ?gangrene Left toes are black, per patient this began while she was at [facility] Chart review indicates she had bilateral [...] These medications were sent to [facility]- [id number] [place] [address] - [id number] (more content not included)... Normal [facility] Comprehensive metabolic 2000 panelon 10-26-2024 Albumin [Mass/Vol] 3.0 g/dL Low 3.2-5.0 [facility] Comment on above: Order Comment: Dora finch Type: BLOOD SPECIMEN Ordering Facility: [facility] Address: [address] [place] [address] Performed By: #### 5 7021-8 #### [facility] CLIA [id number] [address] [place], [place] [id number] [place] [Catalytic activity/Vol] 125 U/L High 45-117 [facility] Comment on above: Order Comment: Dora finch Type: BLOOD SPECIMEN Ordering Facility: [facility] Address: [address] [place] [address] Performed By: #### 5 7021-8 #### [facility] CLIA [id number] [address] [place], [place] [address] [place] ALT [Catalytic activity/Vol] 16 U/L Normal 13-61 [facility] Comment on above: Order Comment: Speci men Type: BLOOD SPECIMEN Ordering Facility: [facility] Address: [address] [place] [address] Result Comment: Resu lts may be falsely depressed after the administration of Sulfasalazine and/or Sulfapyridine. Performed By: #### 5 7021-8 #### [facility] CLIA [id number] [address] [place] [address] [place] Anion gap [Moles/Vol] 9 mmol/L Normal 5-16 [facility] Comment on above: Order Comment: Speci men Type: BLOOD SPECIMEN Ordering Facility: [facility] Address: [address] [place] [address] Performed By: #### 5 7021-8 #### [facility] CLIA [id number] [address] [place] [address] [place] AST [Catalytic activity/Vol] 24 U/L Normal 8-34 [facility] Comment on above: Order Comment: Speci men Type: BLOOD SPECIMEN Ordering Facility: [facility] Address: [address] [place] [address] Result Comment: Resu lts may be falsely depressed after the administration of Sulfasalazine and/or Sulfapyridine. Performed By: #### 5 7021-8 #### [facility] CLIA [id number] [address] [place] [address] [place] Bilirubin [Mass/Vol] 1.2 mg/dL High 0.2-1.0 [facility] Comment on above: Order Comment: Speci men Type: BLOOD SPECIMEN Ordering Facility: [facility] Address: [address] [place] [address] Performed By: #### 5 7021-8 #### [facility] CLIA [id number] [address] [place] [address] [place] Calcium [Mass/Vol] 9.5 mg/dL Normal 8.5-10.5 [facility] Comment on above: Order Comment: Speci men Type: BLOOD SPECIMEN Ordering Facility: [facility] Address: [address] [place] [address] Performed By: #### 5 7021-8 #### [facility] CLIA [id number] [address] [place] [address] [place] Chloride [Moles/Vol] 94 mmol/L Low 98-107 [facility] Comment on above: Order Comment: Speci men Type: BLOOD SPECIMEN Ordering Facility: [facility] Address: [address] [place] [address] Performed By: #### 5 7021-8 #### [facility] CLIA [id number] [address] [place] [address] [place] CO2 [Moles/Vol] 30 mmol/L Normal 21-32 [facility] Comment on above: Order Comment: Speci men Type: BLOOD SPECIMEN Ordering Facility: [facility] Address: [address] [place] [address] Performed By: #### 5 7021-8 #### [facility] CLIA [id number] [address] [place] [address] [place] Creatinine [Mass/Vol] 0.92 mg/dL Normal 0.51-0.95 [facility] Comment on above: Order Comment: Speci men Type: BLOOD SPECIMEN Ordering Facility: [facility] Address: [address] [place] [address] Result Comment: Marissa ents receiving either N-Acetylcysteine (NAC) or Metamizole prior to venipuncture, may have falsely depressed results. Performed By: #### 5 7021-8 #### [facility] CLIA [id number] [address] [place] [address] [place] Creatinine and Glomerular filtration rate.predicted panel (S/P/Bld) 80 mL/min/1.73m??? Normal >=60 [facility] Comment on above: Order Comment: Speci men Type: BLOOD SPECIMEN Ordering Facility: [facility] Address: [address] [id number] Result Comment: Zeny mated Glomerular Filtration Rate [...] GFR. Performed By: #### 5 7021-8 #### [facility] CLIA [id number] [address] [place] [address] [place] Glucose [Mass/Vol] 100 mg/dL Normal 70-100 [facility] Comment on above: Order Comment: Dora finch Type: BLOOD SPECIMEN Ordering Facility: [facility] Address: [address] [place] [address] Result Comment: The [place] [employer] (ADA) provides guidance for cutoff [...] Standards of Medical Care in Diabetes 2016, [place] [employer]. Diabetes Care. 2016.39(Suppl 1). Results may be falsely elevated after the administration of Sulfapyridine. Results may be falsely depressed after the administration of Sulfasalazine. Performed By: #### 5 7021-8 #### [facility] CLIA [id number] [address] [place] [address] [place] Potassium [Moles/Vol] 3.4 mmol/L Low 3.5-5.1 [facility] Comment on above: Order Comment: Dora finch Type: BLOOD SPECIMEN Ordering Facility: [facility] Address: [address] [id number] Performed By: #### 5 7021-8 #### [facility] CLIA [id number] [address] [place], [place] [address] [place] Protein [Mass/Vol] 7.3 g/dL Normal 6.0-8.5 [facility] Comment on above: Order Comment: Speci men Type: BLOOD SPECIMEN Ordering Facility: [facility] Address: [address] [place] [address] Performed By: #### 5 7021-8 #### [facility] CLIA [id number] [address] [place] [address] [place] Sodium [Moles/Vol] 133 mmol/L Low 136-145 [facility] Comment on above: Order Comment: Speci men Type: BLOOD SPECIMEN Ordering Facility: [facility] Address: [address] [place] [address] Performed By: #### 5 7021-8 #### [facility] CLIA [id number] [address] [place] [address] [place] Urea nitrogen [Mass/Vol] 8 mg/dL Normal 7-26 [facility] Comment on above: Order Comment: Speci men Type: BLOOD SPECIMEN Ordering Facility: [facility] Address: [address] [place] [address] Performed By: #### 5 7021-8 #### [facility] CLIA [id number] [address] [place] [address] [place] Magnesium SerPl-mCncon 10-26 Magnesium [Mass/Vol] 1.5 mg/dL Low 1.6-2.6 [facility] Comment on above: Order Comment: Speci men Type: BLOOD SPECIMEN Ordering Facility: [facility] Address: [address] [place] [address] Performed By: #### 2 4321-2 #### [facility] CLIA [id number] [address] [place], [place] [address] [place] ALLIED HEALTHon 10-25-2024 ALLIED HEALTH HNO ID: [id number] Author: STEFANY CALVERT RN Service: Wound/Ostomy Author [...] nursing Recommended Supplies: Coloplast 2pc High Output #18647 Pouch attached to drainage bag Coloplast #06270 Convex Wafer Cut To 1 1/2 x 1 1/4 Oval [place] #8815 Small Barrier [place] Barrier Extenders # [phone] Please Advise Wound Care [phone] If You Have Difficulty Getting Supplies From Cart Room. If additional ostomy supplies are needed, please call [facility] ([phone]) for above mentioned supplies. If supplies are unavailable in [facility], please secure chat [facility] Wound Care Nurses or call extension [phone] to request more supplies. [facility] ALLIED HEALTH HNO ID: [id number] Author: STEFANY CALVERT RN Service: Wound/Ostomy Author [...] Supplies Are Available Through Cart/Supply Room In [facility]. Recommended Supplies: Coloplast 2pc High Output #65826 Pouch attached to drainage bag Coloplast #30933 Flat Wafer [place] #8815 Small Barrier [place] Barrier Extenders # [phone] Please Advise Wound Care [phone] If You Have Difficulty Getting Supplies From Cart Room. Normal [facility] CBC panel Auto (Bld)on 10-25 Erythrocyte distribution width (RBC) [Ratio] 14.8 % Normal 11.5-15.0 [facility] Comment on above: Order Comment: Dora finch Type: BLOOD SPECIMEN Ordering Facility: [facility] Address: [address] [place] [address] Performed By: #### 5 7021-8 #### [facility] CLIA [id number] [employer] [place] [address] [place] Hematocrit (Bld) [Volume fraction] 33.3 % Low 36.0-46.0 [facility] Comment on above: Order Comment: Dora finch Type: BLOOD SPECIMEN Ordering Facility: [facility] Address: [address] [place] [address] Performed By: #### 5 7021-8 #### [facility] CLIA [id number] [address] [place] [address] [place] Hemoglobin (Bld) [Mass/Vol] 10.3 g/dL Low 11.5-15.5 [facility] Comment on above: Order Comment: Speci men Type: BLOOD SPECIMEN Ordering Facility: [facility] Address: [address] [place] [address] Performed By: #### 5 7021-8 #### [facility] CLIA [id number] [address] [place] [address] OF [facility] MCH (RBC) [Entitic mass] 24.0 pg Low 26.0-34.0 [facility] Comment on above: Order Comment: Speci men Type: BLOOD SPECIMEN Ordering Facility: [facility] Address: [address] [place] [address] Performed By: #### 5 7021-8 #### [facility] CLIA [id number] [address] [place] [address] [place] MCHC (RBC) [Mass/Vol] 30.9 g/dL Normal 30.5-36.0 [facility] Comment on above: Order Comment: Speci men Type: BLOOD SPECIMEN Ordering Facility: [facility] Address: [address] [place] [address] Performed By: #### 5 7021-8 #### [facility] CLIA [id number] [address] [place] [address] [place] MCV (RBC) [Entitic vol] 77.6 fL Low 80.0-100.0 [facility] Comment on above: Order Comment: Speci men Type: BLOOD SPECIMEN Ordering Facility: [facility] Address: [address] [place] [address] Performed By: #### 5 7021-8 #### [facility] CLIA [id number] [address] [place] [address] Nucleated RBC (Bld) [#/Vol] 10*3/uL Normal <0.01 [facility] Comment on above: Order Comment: Speci men Type: BLOOD SPECIMEN Ordering Facility: [facility] Address: [address] [id number] Performed By: #### 5 7021-8 #### [facility] CLIA [id number] [address] [place], [place] [address] [place] Platelet mean volume (Bld) [Entitic vol] 9.3 fL Normal 9.0-12.7 [facility] Comment on above: Order Comment: Speci men Type: BLOOD SPECIMEN Ordering Facility: [facility] Address: [address] [place] [address] Performed By: #### 5 7021-8 #### [facility] CLIA [id number] [address] [place] [address] [facility] [place] Platelets (Bld) [#/Vol] 364 10*3/uL Normal 150-400 [facility] Comment on above: Order Comment: Speci men Type: BLOOD SPECIMEN Ordering Facility: [facility] Address: [address] [place] [address] Performed By: #### 5 7021-8 #### [facility] CLIA [id number] [address] [place] [address] [place] RBC (Bld) [#/Vol] 4.29 10*6/uL Normal 3.90-5.20 [facility] Comment on above: Order Comment: Speci men Type: BLOOD SPECIMEN Ordering Facility: [facility] Address: [address] [place], [place] [id number] Performed By: #### 5 7021-8 #### [facility] CLIA [id number] [address] [place] [address] [place] WBC (Bld) [#/Vol] 6.18 10*3/uL Normal 3.70-11.00 [facility] Comment on above: Order Comment: Speci men Type: BLOOD SPECIMEN Ordering Facility: [facility] Address: [facility] [place] [address] Performed By: #### 5 7021-8 #### [facility] CLIA [id number] [address] [place], [place] [address] [place] Comprehensive metabolic 2000 panelon 10-25-2024 Albumin [Mass/Vol] 3.0 g/dL Low 3.2-5.0 [facility] Comment on above: Order Comment: Speci men Type: BLOOD SPECIMEN Ordering Facility: [facility] Address: [address] [place] [address] Performed By: #### 5 7021-8 #### [facility] CLIA [id number] [address] [place] [address] [place] ALP [Catalytic activity/Vol] 137 U/L High 45-117 [facility] Comment on above: Order Comment: Speci men Type: BLOOD SPECIMEN Ordering Facility: [facility] Address: [address] [place] [address] Performed By: #### 5 7021-8 #### [facility] CLIA [id number] [address] [place] [address] [place] ALT [Catalytic activity/Vol] 14 U/L Normal 13-61 [facility] Comment on above: Order Comment: Speci men Type: BLOOD SPECIMEN Ordering Facility: [facility] Address: [address] [place] [address] Result Comment: Resu lts may be falsely depressed after the administration of Sulfasalazine and/or Sulfapyridine. Performed By: #### 5 7021-8 #### [facility] CLIA [id number] [address] [place], [place] [address] [place] Anion gap [Moles/Vol] 9 mmol/L Normal 5-16 [facility] Comment on above: Order Comment: Speci men Type: BLOOD SPECIMEN Ordering Facility: [facility] Address: [address] [place] [address] Performed By: #### 5 7021-8 #### [facility] CLIA [id number] [address] [place] [address] [place] AST [Catalytic activity/Vol] 16 U/L Normal 8-34 [facility] Comment on above: Order Comment: Speci men Type: BLOOD SPECIMEN Ordering Facility: [facility] Address: [address] [place] [address] Result Comment: Resu lts may be falsely depressed after the administration of Sulfasalazine and/or Sulfapyridine. Performed By: #### 5 7021-8 #### [facility] CLIA [id number] [address] [place] [address] [place] Bilirubin [Mass/Vol] 1.3 mg/dL High 0.2-1.0 [facility] Comment on above: Order Comment: Speci men Type: BLOOD SPECIMEN Ordering Facility: [facility] Address: [address] [place] [address] Performed By: #### 5 7021-8 #### [facility] CLIA [id number] [address] [place] [address] [place] Calcium [Mass/Vol] 9.6 mg/dL Normal 8.5-10.5 [facility] Comment on above: Order Comment: Speci men Type: BLOOD SPECIMEN Ordering Facility: [facility] Address: [address] [place] [address] Performed By: #### 5 7021-8 #### [facility] CLIA [id number] [address] [place] [address] [place] Chloride [Moles/Vol] 93 mmol/L Low 98-107 [facility] Comment on above: Order Comment: Speci men Type: BLOOD SPECIMEN Ordering Facility: [facility] Address: [address] [place] [address] Performed By: #### 5 7021-8 #### [facility] CLIA [id number] [address] [place] [address] [place] CO2 [Moles/Vol] 33 mmol/L High 21-32 [facility] Comment on above: Order Comment: Speci men Type: BLOOD SPECIMEN Ordering Facility: [facility] Address: [address] [place] [address] Performed By: #### 5 7021-8 #### [facility] CLIA [id number] [address] [place] [address] [place] Creatinine [Mass/Vol] 1.00 mg/dL High 0.51-0.95 [facility] Comment on above: Order Comment: Dora finch Type: BLOOD SPECIMEN Ordering Facility: [facility] Address: [address] [place] [address] Result Comment: Marissa ents receiving either N-Acetylcysteine (NAC) or Metamizole prior to venipuncture, may have falsely depressed results. Performed By: #### 5 7021-8 #### [facility] CLIA [id number] [address] [place] [address] Creatinine and Glomerular filtration rate.predicted panel (S/P/Bld) 73 mL/min/1.73m??? Normal >=60 [facility] Comment on above: Order Comment: Dora finch Type: BLOOD SPECIMEN Ordering Facility: [facility] Address: [address] [place] [address] Result Comment: Zeny mated Glomerular Filtration Rate [...] GFR. Performed By: #### 5 7021-8 #### [facility] CLIA [id number] [address] [place] [address] [place] Glucose [Mass/Vol] 89 mg/dL Normal 70-100 [facility] Comment on above: Order Comment: Dora finch Type: BLOOD SPECIMEN Ordering Facility: [facility] Address: [address] [place] [address] Result Comment: The [place] [employer] (ADA) provides guidance for cutoff [...] Standards of Medical Care in Diabetes 2016, [place] [employer]. Diabetes Care. 2016.39(Suppl 1). Results may be falsely elevated after the administration of Sulfapyridine. Results may be falsely depressed after the administration of Sulfasalazine. Performed By: #### 5 7021-8 #### [facility] CLIA [id number] [address] [place] [address] [place] Potassium [Moles/Vol] 3.4 mmol/L Low 3.5-5.1 [facility] Comment on above: Order Comment: Florii stef Type: BLOOD SPECIMEN Ordering Facility: [facility] Address: [address] [place] [address] Performed By: #### 5 7021-8 #### [facility] CLIA [id number] [address] [place] [address] [place] Protein [Mass/Vol] 7.7 g/dL Normal 6.0-8.5 [facility] Comment on above: Order Comment: Florii stef Type: BLOOD SPECIMEN Ordering Facility: [facility] Address: [address] [place] [address] Performed By: #### 5 7021-8 #### [facility] CLIA [id number] [address] [place] [address] [place] Sodium [Moles/Vol] 135 mmol/L Low 136-145 [facility] Comment on above: Order Comment: Florii stef Type: BLOOD SPECIMEN Ordering Facility: [facility] Address: [address] [place] [address] Performed By: #### 5 7021-8 #### [facility] CLIA [id number] [address] [place] [address] [place] Urea nitrogen [Mass/Vol] 11 mg/dL Normal 7-26 [facility] Comment on above: Order Comment: Florii stef Type: BLOOD SPECIMEN Ordering Facility: [facility] Address: [address] [place] [address] Performed By: #### 5 7021-8 #### [facility] CLIA [id number] [address] [place] [address] [place] Magnesium SerPl-mCncon 10-25 Magnesium [Mass/Vol] 1.7 mg/dL Normal 1.6-2.6 [facility] Comment on above: Order Comment: Speci men Type: BLOOD SPECIMEN Ordering Facility: [facility] Address: [address] [place] [address] Performed By: #### 5 7021-8 #### [facility] CLIA [id number] [address] [place] [address] [place] CBC panel Auto (Bld)on 10-24 Erythrocyte distribution width (RBC) [Ratio] 14.8 % Normal 11.5-15.0 [facility] Comment on above: Order Comment: Speci men Type: BLOOD SPECIMENOrdering Facility: [facility] Address: [address] [place] [address] Performed By: #### 5 8410-2 ####[facility] [id number] [address] [place] Hematocrit (Bld) [Volume fraction] 32.6 % Low 36.0-46.0 [facility] Comment on above: Order Comment: Speci men Type: BLOOD SPECIMENOrdering Facility: [facility] Address: [address] [place] [address] Performed By: #### 5 8410-2 ####[facility] [id number] [address] [place] Hemoglobin (Bld) [Mass/Vol] 10.3 g/dL Low 11.5-15.5 [facility] Comment on above: Order Comment: Speci men Type: BLOOD SPECIMENOrdering Facility: [facility] Address: [address] [place] [address] Performed By: #### 5 8410-2 ####[facility] [id number] [place] [id number] [place] MCH (RBC) [Entitic mass] 24.1 pg Low 26.0-34.0 [facility] Comment on above: Order Comment: Speci men Type: BLOOD SPECIMENOrdering Facility: [facility] Address: [address] [place] [address] Performed By: #### 5 8410-2 ####[facility] [id number] [address] [place] MCHC (RBC) [Mass/Vol] 31.6 g/dL Normal 30.5-36.0 [facility] Comment on above: Order Comment: Speci men Type: BLOOD SPECIMENOrdering Facility: [facility] Address: [address] [place] [address] Performed By: #### 5 8410-2 ####[facility]IA [id number] [place] [address] [place] MCV (RBC) [Entitic vol] 76.2 fL Low 80.0-100.0 [facility] Comment on above: Order Comment: Speci men Type: BLOOD SPECIMENOrdering Facility: [facility] Address: [address] [place] [address] Performed By: #### 5 8410-2 ####[facility]IA [id number] [place] [address] [place] Nucleated RBC (Bld) [#/Vol] 10*3/uL Normal <0.01 [facility] Comment on above: Order Comment: Speci men Type: BLOOD SPECIMENOrdering Facility: [facility] Address: [address] [place] [address] Performed By: #### 5 8410-2 ####[facility]ORY[facility]IA [id number] [place] [address] [place] Platelet mean volume (Bld) [Entitic vol] 8.7 fL Low 9.0-12.7 [facility] Comment on above: Order Comment: Speci men Type: BLOOD SPECIMENOrdering Facility: [facility] Address: [address] [place] [address] Performed By: #### 5 8410-2 ####[facility]ORY[facility]IA [id number] [place] [id number] [facility] [place] Platelets (Bld) [#/Vol] 408 10*3/uL High 150-400 [facility] Comment on above: Order Comment: Speci men Type: BLOOD SPECIMENOrdering Facility: [facility] Address: [address] [place] [address] Performed By: #### 5 8410-2 ####[facility]ORY[facility]IA [id number] [address] [place] RBC (Bld) [#/Vol] 4.28 10*6/uL Normal 3.90-5.20 [facility] Comment on above: Order Comment: Speci men Type: BLOOD SPECIMENOrdering Facility: [facility] Address: [address] [place] [address] Performed By: #### 5 8410-2 ####[facility]ORYCLIA [id number] [place] [id number] [facility] WBC (Bld) [#/Vol] 6.06 10*3/uL Normal 3.70-11.00 [facility] Comment on above: Order Comment: Speci men Type: BLOOD SPECIMENOrdering Facility: [facility] Address: [address] [place] [address] Performed By: #### 5 8410-2 ####[facility]ORY[facility]IA [id number] [place] [id number] [facility] [place] Comprehensive metabolic 2000 panelon 10-24-2024 Albumin [Mass/Vol] 3.1 g/dL Low 3.2-5.0 [facility] Comment on above: Order Comment: Speci men Type: BLOOD SPECIMENOrdering Facility: [facility] Address: [address] [place] [address] Performed By: #### 1 9123-9, 81269-3 ####[facility]ORY[facility]IA [id number] [place] [id number] [place] ALP [Catalytic activity/Vol] 131 U/L High 45-117 [facility] Comment on above: Order Comment: Speci men Type: BLOOD SPECIMENOrdering Facility: [facility] Address: [address] [place] [address] Performed By: #### 1 9123-9, 92820-4 ####[facility] LABORATORYCLIA [id number] [place] [address] [place] ALT [Catalytic activity/Vol] 15 U/L Normal 13-61 [facility] Comment on above: Order Comment: Speci men Type: BLOOD SPECIMENOrdering Facility: [facility] Address: [address] [place] [address] Result Comment: Resu lts may be falsely depressed after the administration of Sulfasalazine and/or Sulfapyridine. Performed By: #### 1 9123-9, 79445-1 ####[facility] LABORATORYCLIA [id number] [place] [address] [place] Anion gap [Moles/Vol] 10 mmol/L Normal 5-16 [facility] Comment on above: Order Comment: Speci men Type: BLOOD SPECIMENOrdering Facility: [facility] Address: [address] [place] [address] Performed By: #### 1 9123-9, 43302-0 ####[facility] LABORATORYCLIA [id number] [place] [address] [place] AST [Catalytic activity/Vol] 12 U/L Normal 8-34 [facility] Comment on above: Order Comment: Speci men Type: BLOOD SPECIMENOrdering Facility: [facility] Address: [address] [place] [address] Result Comment: Resu lts may be falsely depressed after the administration of Sulfasalazine and/or Sulfapyridine. Performed By: #### 1 9123-9, 07086-1 ####[facility] LABORATORYCLIA [id number] [place] [id number] [place] Bilirubin [Mass/Vol] 1.2 mg/dL High 0.2-1.0 [facility] Comment on above: Order Comment: Speci men Type: BLOOD SPECIMENOrdering Facility: [facility] Address: [address] [place] [address] Performed By: #### 1 9123-9, 03633-3 ####[facility] LABORATORYCLIA [id number] [place] [address] [place] Calcium [Mass/Vol] 9.6 mg/dL Normal 8.5-10.5 [facility] Comment on above: Order Comment: Speci men Type: BLOOD SPECIMENOrdering Facility: [facility] Address: [address] [place] [address] Performed By: #### 1 9123-9, 65290-8 ####[facility] LABORATORYCLIA [id number] [place] [address] [place] Chloride [Moles/Vol] 92 mmol/L Low 98-107 [facility] Comment on above: Order Comment: Speci men Type: BLOOD SPECIMENOrdering Facility: [facility] Address: [address] [place] [address] Performed By: #### 1 9123-9, 30682-9 ####[facility] LABORATORYCLIA [id number] [place] [address] [place] CO2 [Moles/Vol] 31 mmol/L Normal 21-32 [facility] Comment on above: Order Comment: Speci men Type: BLOOD SPECIMENOrdering Facility: [facility] Address: [address] [place] [address] Performed By: #### 1 9123-9, 42071-5 ####[facility] LABORATORYCLIA [id number] [place] [address] [place] Creatinine [Mass/Vol] 1.04 mg/dL High 0.51-0.95 [facility] Comment on above: Order Comment: Speci men Type: BLOOD SPECIMENOrdering Facility: [facility] Address: [address] [place] [address] Result Comment: Marissa ents receiving either N-Acetylcysteine (NAC) or Metamizole prior to venipuncture, may have falsely depressed results. Performed By: #### 1 9123-9, 48652-3 ####[facility] LABORATORYCLIA [id number] [place] [address] [place] Creatinine and Glomerular filtration rate.predicted panel (S/P/Bld) 69 mL/min/1.73m??? Normal >=60 [facility] Comment on above: Order Comment: Dora finch Type: BLOOD SPECIMENOrdering Facility: [facility] Address: [address] [place] [address] Result Comment: Zeny mated Glomerular Filtration Rate [...] actual GFR. Performed By: #### 1 9123-9, 58128-0 ####[facility] LABORATORYCLIA [id number] [place] [address] [place] Glucose [Mass/Vol] 101 mg/dL High 70-100 [facility] Comment on above: Order Comment: Dora finch Type: BLOOD SPECIMENOrdering Facility: [facility] Address: [address] [place] [address] Result Comment: The [place] [employer] (ADA) provides guidance for cutoff [...] Standards of Medical Care in Diabetes 2016, [place] [employer]. Diabetes Care. 2016.39(Suppl 1). Results may be falsely elevated after the administration of Sulfapyridine. Results may be falsely depressed after the administration of Sulfasalazine. Performed By: #### 1 9123-9, ####[facility] LABORATORYCLIA [id number] [place] [address] [place] Potassium [Moles/Vol] 3.4 mmol/L Low 3.5-5.1 [facility] Comment on above: Order Comment: Speci men Type: BLOOD SPECIMENOrdering Facility: [facility] Address: [address] [place] [address] Performed By: #### 1 9123-9, ####[facility] LABORATORYCLIA [id number] [place] [address] [place] Protein [Mass/Vol] 7.5 g/dL Normal 6.0-8.5 [facility] Comment on above: Order Comment: Speci men Type: BLOOD SPECIMENOrdering Facility: [facility] Address: [address] [place] [address] Performed By: #### 1 9123-9, ####[facility]ORATORYCLIA [id number] [place] [address] [place] Sodium [Moles/Vol] 133 mmol/L Low 136-145 [facility] Comment on above: Order Comment: Speci men Type: BLOOD SPECIMENOrdering Facility: [facility] Address: [address] [place] [address] Performed By: #### 1 9123-9, ####[facility] LABORATORYCLIA [id number] [place] [address] [place] Urea nitrogen [Mass/Vol] 10 mg/dL Normal 7-26 [facility] Comment on above: Order Comment: Speci men Type: BLOOD SPECIMENOrdering Facility: [facility] Address: [address] [place] [address] Performed By: #### 1 9123-9, ####[facility] LABORATORYCLIA [id number] [place] [address] [place] Magnesium SerPl-mCncon 10-24 Magnesium [Mass/Vol] 1.8 mg/dL Normal 1.6-2.6 [facility] Comment on above: Order Comment: Speci men Type: BLOOD SPECIMENOrdering Facility: [facility] Address: [address], [place] [id number] Performed By: #### 1 9123-9, 14661-7 ####[facility] LABORATORYCLIA [id number] [place] [address] [place] NUTRITIONon 10-24-2024 NUTRITION HNO ID: [id number] Author: LELIA MORALES RD Service: ? Author [...] needs: 1849 - 2049 Calorie Calculation Method: Canadian-St. Jeor (with activity factor) Estimated protein needs [...] October 24, 2024 TIME: 1:56 PM Normal [facility] CBC panel Auto (Bld)on 10-23 Erythrocyte distribution width (RBC) [Ratio] 14.8 % Normal 11.5-15.0 [facility] Comment on above: Order Comment: Speci men Type: BLOOD SPECIMENOrdering Facility: [facility] Address: [address] [place] [id number] Performed By: #### 5 8410-2 ####[facility] LABORATORYCLIA [id number] [place] [address] [place] Hematocrit (Bld) [Volume fraction] 30.5 % Low 36.0-46.0 [facility] Comment on above: Order Comment: Speci men Type: BLOOD SPECIMENOrdering Facility: [facility] Address: [address] [place] [id number] Performed By: #### 5 8410-2 ####[facility]ORATORYCLIA [id number] [place] [address] [place] Hemoglobin (Bld) [Mass/Vol] 9.4 g/dL Low 11.5-15.5 [facility] Comment on above: Order Comment: Speci men Type: BLOOD SPECIMENOrdering Facility: [facility] Address: [address] [place] [address] Performed By: #### 5 8410-2 ####[facility] LABORATORYCLIA [id number] [address] MCH (RBC) [Entitic mass] 24.0 pg Low 26.0-34.0 [facility] Comment on above: Order Comment: Speci men Type: BLOOD SPECIMENOrdering Facility: [facility] Address: [address] [place] [address] Performed By: #### 5 8410-2 ####[facility]ORATORYCLIA [id number] [address] [place] MCHC (RBC) [Mass/Vol] 30.8 g/dL Normal 30.5-36.0 [facility] Comment on above: Order Comment: Speci men Type: BLOOD SPECIMENOrdering Facility: [facility] Address: [address] [place] [address] Performed By: #### 5 8410-2 ####[facility] LABORATORYCLIA [id number] [address] MCV (RBC) [Entitic vol] 77.8 fL Low 80.0-100.0 [facility] Comment on above: Order Comment: Speci men Type: BLOOD SPECIMENOrdering Facility: [facility] Address: [address] [place] [address] Performed By: #### 5 8410-2 ####[facility] LABORATORYCLIA [id number] [address] Nucleated RBC (Bld) [#/Vol] 10*3/uL Normal <0.01 [facility] Comment on above: Order Comment: Speci men Type: BLOOD SPECIMENOrdering Facility: [facility] Address: [address] [place] [address] Performed By: #### 5 8410-2 ####[facility] LABORATORYCLIA [id number] [address] [place] Platelet mean volume (Bld) [Entitic vol] 8.6 fL Low 9.0-12.7 [facility] Comment on above: Order Comment: Speci men Type: BLOOD SPECIMENOrdering Facility: [facility] Address: [address] [place] [address] Performed By: #### 5 8410-2 ####[facility] LABORATORYCLIA [id number] [place] [address] [facility] [place] Platelets (Bld) [#/Vol] 413 10*3/uL High 150-400 [facility] Comment on above: Order Comment: Speci men Type: BLOOD SPECIMENOrdering Facility: [facility] Address: [address] [place] [address] Performed By: #### 5 8410-2 ####[facility]ORATORYCLIA [id number] [place] [address] [facility] [place] RBC (Bld) [#/Vol] 3.92 10*6/uL Normal 3.90-5.20 [facility] Comment on above: Order Comment: Speci men Type: BLOOD SPECIMENOrdering Facility: [facility] Address: [address] [place] [address] Performed By: #### 5 8410-2 ####[facility]ORATORYCLIA [id number] [address] WBC (Bld) [#/Vol] 5.26 10*3/uL Normal 3.70-11.00 [facility] Comment on above: Order Comment: Speci men Type: BLOOD SPECIMENOrdering Facility: [facility] Address: [address] [place] [address] Performed By: #### 5 8410-2 ####[facility] LABORATORYCLIA [id number] [place] [address] [facility] CONSULTon 10-23-2024 CONSULT HNO ID: [id number] Author: YOHANA GARCIA III, DPM Service: Podiatry [...] and polysubstance abuse who originally presented to [facility] with severe abdominal pain and found [...] feet. No x-rays have been done today. 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 Originally presented to hospital with persistent stools. She had recent vascular follow-up at the end of August. PAST MEDICAL HISTORY Diagnosis Date Attempted suicide (HCC) polysubstance Bipolar depression (HCC) [facility] Camelia Whyte Gestational diabetes mellitus in ([facility]) Impaired fasting blood sugar 06/2015 a1c 5.7% [...] Urine Negative 08/30/2024 Nitrites Negative 08/30/2024 Specific [place], Ur 1.016 08/30/2024 Protein, Urine 1+ 08/30/2024 Leukest Negative 08/30/2024 WBC, Urine 0-5 /HPF 08/30/2024 Bacteria Negative 08/30/2024 SED RATE/CRP: Sed Rate, Westergren 2 02/05/2022 CRP 10.4 09/03/2024 CRP 20.2 08/31/2024 CRP 18.1 (more content not included)... Normal [facility] CONSULT PROGon 10-23-2024 CONSULT PROG HNO ID: [id number] Author: ALOK DONIS MD Service: Gastroenterology Author [...] if needed Rest as outlined below by KAIN Other additions or changes: None Signature: Alok [...] primary team -Outpatient GI follow-up, referral line [phone] -Please call with questions, nothing further to add from a GI standpoint at this time GI will sign off at this time. Please don't hesitate to call us back. Please contact on-call GI staff physician with any questions or concerns. SIGNATURE: Rakesh Davis APRN.DUSTER TENDER DATE: October 23, 2024 TIME: 11:56 AM (Some elements copied from my note, dated 10/22, which have been reviewed and updated where appropriate. All reflect current medical decision making from today, 10/23.) Normal [facility] Comprehensive metabolic 2000 panelon 10-23-2024 Albumin [Mass/Vol] 2.8 g/dL Low 3.2-5.0 [facility] Comment on above: Order Comment: Dora finch Type: BLOOD SPECIMENOrdering Facility: [facility] Address: [address] [place] [address] Performed By: #### 1 9123-9, 25764-5 ####[facility] LABORATORYCLIA [id number] [place] [address] [place] ALP [Catalytic activity/Vol] 118 U/L High 45-117 [facility] Comment on above: Order Comment: Dora finch Type: BLOOD SPECIMENOrdering Facility: [facility] Address: [address] [place] [address] Performed By: #### 1 9123-9, 19087-2 ####[facility] LABORATORYCLIA [id number] [place] [address] [place] ALT [Catalytic activity/Vol] 15 U/L Normal 13-61 [facility] Comment on above: Order Comment: Speci men Type: BLOOD SPECIMENOrdering Facility: [facility] Address: [address] [place] [address] Result Comment: Resu lts may be falsely depressed after the administration of Sulfasalazine and/or Sulfapyridine. Performed By: #### 1 9123-9, 44937-8 ####[facility]ORATORYCLIA [id number] [place] [address] [place] Anion gap [Moles/Vol] 10 mmol/L Normal 5-16 [facility] Comment on above: Order Comment: Speci men Type: BLOOD SPECIMENOrdering Facility: [facility] Address: [address] [place] [address] Performed By: #### 1 9123-9, 07628-0 ####[facility] LABORATORYCLIA [id number] [address] [place] AST [Catalytic activity/Vol] 14 U/L Normal 8-34 [facility] Comment on above: Order Comment: Speci men Type: BLOOD SPECIMENOrdering Facility: [facility] Address: [address] [place] [address] Result Comment: Resu lts may be falsely depressed after the administration of Sulfasalazine and/or Sulfapyridine. Performed By: #### 1 9123-9, 69577-4 ####[facility]ORATORYCLIA [id number] [place] [address] [place] Bilirubin [Mass/Vol] 0.9 mg/dL Normal 0.2-1.0 [facility] Comment on above: Order Comment: Speci men Type: BLOOD SPECIMENOrdering Facility: [facility] Address: [address] [place] [address] Performed By: #### 1 9123-9, ####[facility]ORATORYCLIA [id number] [place] [address] [place] Calcium [Mass/Vol] 9.1 mg/dL Normal 8.5-10.5 [facility] Comment on above: Order Comment: Speci men Type: BLOOD SPECIMENOrdering Facility: [facility] Address: [address] [place] [address] Performed By: #### 1 9123-9, ####[facility] LABORATORYCLIA [id number] [place] [address] [place] Chloride [Moles/Vol] 98 mmol/L Normal 98-107 [facility] Comment on above: Order Comment: Speci men Type: BLOOD SPECIMENOrdering Facility: [facility] Address: [address] [place] [address] Performed By: #### 1 9123-9, ####[facility]ORATORYCLIA [id number] [place] [address] [place] CO2 [Moles/Vol] 29 mmol/L Normal 21-32 [facility] Comment on above: Order Comment: Speci men Type: BLOOD SPECIMENOrdering Facility: [facility] Address: [address] [place] [address] Performed By: #### 1 9123-9, ####[facility]ORATORYCLIA [id number] [place] [address] [place] Creatinine [Mass/Vol] 0.90 mg/dL Normal 0.51-0.95 [facility] Comment on above: Order Comment: Speci men Type: BLOOD SPECIMENOrdering Facility: [facility] Address: [address] [place] [address] Result Comment: Marissa ents receiving either N-Acetylcysteine (NAC) or Metamizole prior to venipuncture, may have falsely depressed results. Performed By: #### 1 9123-9, ####[facility] LABORATORYCLIA [id number] [place] [address] [place] Creatinine and Glomerular filtration rate.predicted panel (S/P/Bld) 83 mL/min/1.73m??? Normal >=60 [facility] Comment on above: Order Comment: Dora finch Type: BLOOD SPECIMENOrdering Facility: [facility] Address: [address] [place] [address] Result Comment: Zeny mated Glomerular Filtration Rate [...] actual GFR. Performed By: #### 1 9123-9, 22753-2 ####[facility] LABORATORYCLIA [id number] [place] [address] [place] Glucose [Mass/Vol] 98 mg/dL Normal 70-100 [facility] Comment on above: Order Comment: Dora finch Type: BLOOD SPECIMENOrdering Facility: [facility] Address: [address] [place] [address] Result Comment: The [place] Diabetes Association (ADA) provides guidance for cutoff [...] Standards of Medical Care in Diabetes 2016, [place] [employer]. Diabetes Care. 2016.39(Suppl 1). Results may be falsely elevated after the administration of Sulfapyridine. Results may be falsely depressed after the administration of Sulfasalazine. Performed By: #### 1 9123-9, 91568-0 ####[facility] LABORATORYCLIA [id number] [place] [address] [place] Potassium [Moles/Vol] 3.4 mmol/L Low 3.5-5.1 [facility] Comment on above: Order Comment: Speci men Type: BLOOD SPECIMENOrdering Facility: [facility] Address: [address] [place], [place] [address] Performed By: #### 1 9123-9, ####[facility] LABORATORYCLIA [id number] [place] [address] [place] Protein [Mass/Vol] 6.9 g/dL Normal 6.0-8.5 [facility] Comment on above: Order Comment: Speci men Type: BLOOD SPECIMENOrdering Facility: [facility] Address: [address] [place] [address] Performed By: #### 1 9123-9, ####[facility] LABORATORYCLIA [id number] [place] [address] [place] Sodium [Moles/Vol] 137 mmol/L Normal 136-145 [facility] Comment on above: Order Comment: Speci men Type: BLOOD SPECIMENOrdering Facility: [facility] Address: [address] [place] [address] Performed By: #### 1 9123-9, ####[facility] LABORATORYCLIA [id number] [place] [address] [place] Urea nitrogen [Mass/Vol] 7 mg/dL Normal 7-26 [facility] Comment on above: Order Comment: Speci men Type: BLOOD SPECIMENOrdering Facility: [facility] Address: [address] [place], [place] [address] Performed By: #### 1 9123-9, ####[facility] LABORATORYCLIA [id number] [place] [address] [place] Magnesium SerPl-mCncon 10-23 Magnesium [Mass/Vol] 1.9 mg/dL Normal 1.6-2.6 [facility] Comment on above: Order Comment: Speci men Type: BLOOD SPECIMENOrdering Facility: [facility] Address: [address] [place] [address] [place] [address] Performed By: #### 1 9123-9, 70749-2 ####[facility] LABORATORYCLIA [id number] [place] [address] [place] XR FOOT 3V [...] of osteomyelitis. Mild distal soft tissue swelling. Director Camp: P[employer] Transcribe Date/Time: Oct 23 2024 4:00P Dictated by : HOMA EDMONDSON MD This examination was interpreted and the report reviewed and electronically signed by: HOMA EDMONDSON MD on Oct 23 2024 4:03PM EST [id number] Normal [facility] ALLIED HEALTHon 10-22-2024 ALLIED HEALTH HNO ID: [id number] Author: STEFANY CALVERT RN Service: Wound/Ostomy Author [...] Applied And Attached To Drainage Bag Barrier Outreach Librarian Strips Applied To Edges Patient Educated On Need To Watch Drainage Tubing To Ensure Its Draining And Pouch Doesn't Get Too Full And Starts Leaking. Assessment Stoma Type: End-loop jejunostomy Size/Diameter: 38mm Location: LLQ Protrusion: Flush, Retracted, Etc. Mucosal condition and color: [place] Red Moist Mucocutaneous junction: Intact Character of output: Liquid Yellow Brown Emptying frequency per day: per floor nursing Current pouching system: Coloplast 2pc High Output #66204 Pouch attached to drainage bag Coloplast #55549 [place] #8815 Small Barrier Ring Wear Time Goal: 3-4 days Coloplast 2pc Colostomy Pouch # 88029 Left In Room When Stool Thickens Too Much To Use High Output Bag. If additional ostomy supplies are needed, please call [employer] ([phone]) for above mentioned supplies. If supplies are unavailable in [employer], please secure chat [facility] Nurses or call extension [phone] to request more supplies. Normal [facility] CBC panel Auto (Bld)on 10-22 Erythrocyte distribution width (RBC) [Ratio] 14.6 % Normal 11.5-15.0 [facility] Comment on above: Order Comment: Dora finch Type: BLOOD SPECIMEN [facility] Address: [address] [place] [address] Performed By: #### 4 091-5 #### [facility] CLIA [id number] [facility] [place] [address] [place] Hematocrit (Bld) [Volume fraction] 28.0 % Low 36.0-46.0 [facility] Comment on above: Order Comment: Dora finch Type: BLOOD SPECIMEN [facility] Address: [address] [place] [address] Performed By: #### 4 091-5 #### [facility] CLIA [id number] [address] [place] [address] [place] Hemoglobin (Bld) [Mass/Vol] 8.8 g/dL Low 11.5-15.5 [facility] Comment on above: Order Comment: Speci men Type: BLOOD SPECIMEN [facility] Address: [address] [place] [address] Performed By: #### 4 091-5 #### [facility] CLIA [id number] [address] [place] [address] [place] MCH (RBC) [Entitic mass] 24.6 pg Low 26.0-34.0 [facility] Comment on above: Order Comment: Speci men Type: BLOOD SPECIMEN [facility] Address: [address] [place] [address] Performed By: #### 4 091-5 #### [facility] CLIA [id number] [address] [place] [address] [place] MCHC (RBC) [Mass/Vol] 31.4 g/dL Normal 30.5-36.0 [facility] Comment on above: Order Comment: Speci men Type: BLOOD SPECIMEN [facility] Address: [address] [place] [address] Performed By: #### 4 091-5 #### [facility] CLIA [id number] [address] [place] [address] [place] MCV (RBC) [Entitic vol] 78.4 fL Low 80.0-100.0 [facility] Comment on above: Order Comment: Speci men Type: BLOOD SPECIMEN [facility] Address: [address] [place] [address] Performed By: #### 4 091-5 #### [facility] CLIA [id number] [address] [place] [address] [place] Nucleated RBC (Bld) [#/Vol] 10*3/uL Normal <0.01 [facility] Comment on above: Order Comment: Speci men Type: BLOOD SPECIMEN [facility] [address] [address] [facility] [address] [place] [id number] Performed By: #### 4 091-5 #### [facility] CLIA [id number] [address] [place], [place] [address] [place] Platelet mean volume (Bld) [Entitic vol] 8.7 fL Low 9.0-12.7 [facility] Comment on above: Order Comment: Speci men Type: BLOOD SPECIMEN Ordering Facility: [facility] Address: [address] [place] [address] Performed By: #### 4 091-5 #### [facility] CLIA [id number] [address] [place] [address] [place] Platelets (Bld) [#/Vol] 396 10*3/uL Normal 150-400 [facility] Comment on above: Order Comment: Speci men Type: BLOOD SPECIMEN Ordering Facility: [facility] Address: [address] [place] [address] Performed By: #### 4 091-5 #### [facility] CLIA [id number] [address] [place], [place] [address] [place] RBC (Bld) [#/Vol] 3.57 10*6/uL Low 3.90-5.20 [facility] Comment on above: Order Comment: Speci men Type: BLOOD SPECIMEN Ordering Facility: [facility] Address: [address] [place] [address] Performed By: #### 4 091-5 #### [facility] CLIA [id number] [address] [place] [address] [place] WBC (Bld) [#/Vol] 5.87 10*3/uL Normal 3.70-11.00 [facility] Comment on above: Order Comment: Speci men Type: BLOOD SPECIMEN Ordering Facility: [facility] Address: [address] [place] [address] Performed By: #### 4 091-5 #### [facility] CLIA [id number] [address] [place] [address] [facility] CONSULT PROGon 10-22-2024 CONSULT PROG HNO ID: [id number] Author: TUNG JENNINGS MD Service: Gastroenterology Author [...] medical decision making from today, 10/22.) Normal [facility] Comprehensive metabolic 2000 panelon 10-22-2024 Albumin [Mass/Vol] 2.6 g/dL Low 3.2-5.0 [facility] Comment on above: Order Comment: Dora finch Type: BLOOD SPECIMEN Ordering Facility: [facility] Address: [address] [place] [address] Performed By: #### 4 091-5 #### [facility] CLIA [id number] [address] [place] [address] [place] ALP [Catalytic activity/Vol] 110 U/L Normal 45-117 [facility] Comment on above: Order Comment: Dora finch Type: BLOOD SPECIMEN Ordering Facility: [facility] Address: [address] [place] [address] Performed By: #### 4 091-5 #### [facility] CLIA [id number] [address] [place] [address] [place] ALT [Catalytic activity/Vol] 15 U/L Normal 13-61 [facility] Comment on above: Order Comment: Dora finch Type: BLOOD SPECIMEN Ordering Facility: [facility] Address: [address] [place] [address] Result Comment: Resu lts may be falsely depressed after the administration of Sulfasalazine and/or Sulfapyridine. Performed By: #### 4 091-5 #### [facility] CLIA [id number] [address] [place] [address] [place] Anion gap [Moles/Vol] 8 mmol/L Normal 5-16 [facility] Comment on above: Order Comment: Speci men Type: BLOOD SPECIMEN Ordering Facility: [facility] Address: [address] [place] [address] Performed By: #### 4 091-5 #### [facility] CLIA [id number] [address] [place] [address] [place] AST [Catalytic activity/Vol] 14 U/L Normal 8-34 [facility] Comment on above: Order Comment: Speci men Type: BLOOD SPECIMEN Ordering Facility: [facility] Address: [address] [place] [address] Result Comment: Resu lts may be falsely depressed after the administration of Sulfasalazine and/or Sulfapyridine. Performed By: #### 4 091-5 #### [facility] CLIA [id number] [address] [place] [address] [place] Bilirubin [Mass/Vol] 0.9 mg/dL Normal 0.2-1.0 [facility] Comment on above: Order Comment: Speci men Type: BLOOD SPECIMEN Ordering Facility: [facility] Address: [address] [place] [address] Performed By: #### 4 091-5 #### [facility] CLIA [id number] [address] [place] [address] [place] Calcium [Mass/Vol] 8.9 mg/dL Normal 8.5-10.5 [facility] Comment on above: Order Comment: Speci men Type: BLOOD SPECIMEN Ordering Facility: [facility] Address: [address] [place] [address] Performed By: #### 4 091-5 #### [facility] CLIA [id number] [address] [place] [address] [place] Chloride [Moles/Vol] 98 mmol/L Normal 98-107 [facility] Comment on above: Order Comment: Speci men Type: BLOOD SPECIMEN Ordering Facility: [facility] Address: [address] [place] [address] Performed By: #### 4 091-5 #### [facility] CLIA [id number] [address] [place] [address] [place] CO2 [Moles/Vol] 30 mmol/L Normal 21-32 [facility] Comment on above: Order Comment: Speci men Type: BLOOD SPECIMEN Ordering Facility: [facility] Address: [address] [place] [address] Performed By: #### 4 091-5 #### [facility] CLIA [id number] [address] [place] [address] [place] Creatinine [Mass/Vol] 0.95 mg/dL Normal 0.51-0.95 [facility] Comment on above: Order Comment: Speci men Type: BLOOD SPECIMEN Ordering Facility: [facility] Address: [address] [place] [address] Result Comment: Marissa ents receiving either N-Acetylcysteine (NAC) or Metamizole prior to venipuncture, may have falsely depressed results. Performed By: #### 4 091-5 #### [facility] CLIA [id number] [address] [place] [address] [place] Creatinine and Glomerular filtration rate.predicted panel (S/P/Bld) 77 mL/min/1.73m??? Normal >=60 [facility] Comment on above: Order Comment: Speci men Type: BLOOD SPECIMEN Ordering Facility: [facility] Address: [address] [place] [address] Result Comment: Zeny mated Glomerular Filtration Rate [...] GFR. Performed By: #### 4 091-5 #### [facility] CLIA [id number] [address] [place] [address] [place] Glucose [Mass/Vol] 83 mg/dL Normal 70-100 [facility] Comment on above: Order Comment: Speci men Type: BLOOD SPECIMEN Ordering Facility: [facility] Address: [address] [place] [id number] Result Comment: The [place] [employer] (ADA) provides guidance for cutoff [...] Standards of Medical Care in Diabetes 2016, [place] [employer]. Diabetes Care. 2016.39(Suppl 1). Results may be falsely elevated after the administration of Sulfapyridine. Results may be falsely depressed after the administration of Sulfasalazine. Performed By: #### 4 091-5 #### [facility] CLIA [id number] [address] [place] [address] [place] Potassium [Moles/Vol] 3.2 mmol/L Low 3.5-5.1 [facility] Comment on above: Order Comment: Dora finch Type: BLOOD SPECIMEN Ordering Facility: [facility] Address: [address] [place] [address] Performed By: #### 4 091-5 #### [facility] CLIA [id number] [address] [place] [address] [place] Protein [Mass/Vol] 6.4 g/dL Normal 6.0-8.5 [facility] Comment on above: Order Comment: Dora finch Type: BLOOD SPECIMEN Ordering Facility: [facility] Address: [address] [place], [place] [id number] Performed By: #### 4 091-5 #### [facility] CLIA [id number] [address] [place] [address] [place] Sodium [Moles/Vol] 136 mmol/L Normal 136-145 [facility] Comment on above: Order Comment: Florii men Type: BLOOD SPECIMEN Ordering Facility: [facility] Address: [address] [place] [address] Performed By: #### 4 091-5 #### [facility] CLIA [id number] [address] [place] [address] [place] Urea nitrogen [Mass/Vol] 9 mg/dL Normal 01-19 [facility] Comment on above: Order Comment: Speci men Type: BLOOD SPECIMEN Ordering Facility: [facility] Address: [address] [place] [address] Performed By: #### 4 091-5 #### [facility] CLIA [id number] [address] [place] [address] [place] Gastrointestinal pathogens p bowen LAUREANO+probe (Stl)on 10-22-2024 ADENOVIRUS F 40/41 DNA Not detected Normal Not Detected [facility] Comment on above: Order Comment: Speci men Type: STOOL SPECIMENOrdering Facility: [facility] Address: [address] [place] [address] Performed By: #### 7 9381-0 ####[facility]IA [id number] [place] [address] [place] ASTROVIRUS RNA Not detected Normal Not Detected [facility] Comment on above: Order Comment: Speci men Type: STOOL SPECIMENOrdering Facility: [facility] Address: [address] [place] [address] Performed By: #### 7 9381-0 ####[facility]IA [id number] [place] [address] [place] C. cayetanensis DNA LAUREANO+probe Ql (Unsp spec) Not detected Normal Not Detected [facility] Comment on above: Order Comment: Speci men Type: STOOL SPECIMENOrdering Facility: [facility] Address: [address] [place] [address] Performed By: #### 7 9381-0 ####[facility]IA [id number] [place] [address] [place] Campylobacter sp DNA.diarrheagenic LAUREANO+probe Ql (Stl) Not detected Normal Not Detected [facility] Comment on above: Order Comment: Speci men Type: STOOL SPECIMENOrdering Facility: [facility] Address: [address] [place] [address] Performed By: #### 7 9381-0 ####[facility]IA [id number] [address] OF [facility] Cryptosporidium sp DNA LAUREANO+probe Ql (Unsp spec) Not detected Normal Not Detected [facility] Comment on above: Order Comment: Speci men Type: STOOL SPECIMENOrdering Facility: [facility] Address: [address] [place] [address] Performed By: #### 7 9381-0 ####[facility] [id number] [address] [place] E. coli O157:H7 DNA LAUREANO+probe Ql (Unsp spec) Not applicable Normal Not detected [facility] Comment on above: Order Comment: Speci men Type: STOOL SPECIMENOrdering Facility: [facility] Address: [address] [place] [address] Performed By: #### 7 9381-0 ####[facility]IA [id number] [address] [place] E. coli stx1+stx2 genes LAUREANO+probe Ql (Stl) Not detected Normal Not Detected [facility] Comment on above: Order Comment: Speci men Type: STOOL SPECIMENOrdering Facility: [facility] Address: [address] [place] [address] Performed By: #### 7 9381-0 ####[facility]IA [id number] [address] OF [place] E. histolytica DNA LAUREANO+probe Ql (Unsp spec) Not detected Normal Not Detected [facility] Comment on above: Order Comment: Speci men Type: STOOL SPECIMENOrdering Facility: [facility] Address: [address] [place] [address] Performed By: #### 7 9381-0 ####[facility]IA [id number] [address] [place] ENTEROAGGREGATIVE E. COLI (EAEC) DNA Not detected Normal Not Detected [facility] Comment on above: Order Comment: Speci men Type: STOOL SPECIMENOrdering Facility: [facility] Address: [address] [place] [address] Performed By: #### 7 9381-0 ####[facility]IA [id number] [place] [address] [place] ENTEROPATHOGENIC E. COLI (EPEC) DNA Not detected Normal Not detected [facility] Comment on above: Order Comment: Speci men Type: STOOL SPECIMENOrdering Facility: [facility] Address: [address] [place] [address] Performed By: #### 7 9381-0 ####[facility]IA [id number] [place] [address] [place] ENTEROTOXIGENIC E. COLI (ETEC) DNA Not detected Normal Not Detected [facility] Comment on above: Order Comment: Speci men Type: STOOL SPECIMENOrdering Facility: [facility] Address: [address] [place] [address] Performed By: #### 7 9381-0 ####[facility]IA [id number] [place] [address] [place] G. lamblia DNA LAUREANO+probe Ql (Unsp spec) Not detected Normal Not Detected [facility] Comment on above: Order Comment: Speci men Type: STOOL SPECIMENOrdering Facility: [facility] Address: [address] [place] [address] Performed By: #### 7 9381-0 ####[facility]CLIA [id number] [place] [address] [place] NOROVIRUS GI/GII RNA Not detected Normal Not Detected [facility] Comment on above: Order Comment: Speci men Type: STOOL SPECIMENOrdering Facility: [facility] Address: [address] [place] [address] Performed By: #### 7 9381-0 ####[facility]ORY[facility]IA [id number] [address] [place] PLESIOMONAS SHIGELLOIDES DNA Not detected Normal Not Detected [facility] Comment on above: Order Comment: Speci men Type: STOOL SPECIMENOrdering Facility: [facility] Address: [address] [place] [address] Performed By: #### 7 9381-0 ####[facility] [id number] [place] [address] [place] ROTAVIRUS A RNA Not detected Normal Not Detected [facility] Comment on above: Order Comment: Speci men Type: STOOL SPECIMENOrdering Facility: [facility] Address: [address] [place] [address] Performed By: #### 7 9381-0 ####[facility]ITALIA [id number] [address] [place] Salmonella sp DNA LAUREANO+probe Ql (Unsp spec) Not detected Normal Not Detected [facility] Comment on above: Order Comment: Speci men Type: STOOL SPECIMENOrdering Facility: [facility] Address: [address] [place] [address] Performed By: #### 7 9381-0 ####[facility]ITALIA [id number] [address] [place] SAPOVIRUS (GENOGROUPS I, II, IV, V) RNA Not detected Normal Not Detected [facility] Comment on above: Order Comment: Speci men Type: STOOL SPECIMENOrdering Facility: [facility] Address: [address] [place] [address] Performed By: #### 7 9381-0 ####[facility]IA [id number] [place] [address] [place] Shigella species+EIEC invasion plasmid antigen H ipaH gene LAUREANO+probe Ql (Stl) Not detected Normal Not Detected [facility] Comment on above: Order Comment: Speci men Type: STOOL SPECIMENOrdering Facility: [facility] Address: [address] [place] [address] Performed By: #### 7 9381-0 ####[facility]ORYCLIA [id number] [place] [address] [place] V. cholerae DNA LAUREANO+probe Ql (Unsp spec) Not detected Normal Not Detected [facility] Comment on above: Order Comment: Speci men Type: STOOL SPECIMENOrdering Facility: [facility] Address: [address] [place] [address] Performed By: #### 7 9381-0 ####[facility]ORYCLIA [id number] [place] [address] [place] Vibrio sp DNA LAUREANO+probe Nom (Unsp spec) Not detected Normal Not Detected [facility] Comment on above: Order Comment: Speci men Type: STOOL SPECIMENOrdering Facility: [facility] Address: [address] [place] [address] Performed By: #### 7 9381-0 ####[facility]ORYCLIA [id number] [place] [address] [place] Yersinia sp DNA LAUREANO+probe Nom (Unsp spec) Not detected Normal Not Detected [facility] Comment on above: Order Comment: Speci men Type: STOOL SPECIMENOrdering Facility: [facility] Address: [address] [place] [address] Performed By: #### 7 9381-0 ####[facility]ORYCLIA [id number] [place] [address] [place] Magnesium SerPl-mCncon 10-22 Magnesium [Mass/Vol] 1.3 mg/dL Low 1.6-2.6 [facility] Comment on above: Order Comment: Speci men Type: BLOOD SPECIMEN Order[facility] Facility: [facility] Address: [address] [place] [address] Performed By: #### 4 091-5 #### [facility] CLIA [id number] [employer] [place] [address] [place] C diff Tox gens Stl Ql LAUREANO+p robeon 10-21-2024 C. difficile toxin genes LAUREANO+probe Ql (Stl) Negative Normal Negative for C. difficile toxin by PCR [facility] Comment on above: Order Comment: Speci men Type: BLOOD SPECIMEN Order[facility] Facility: [facility] Address: [address] [place] [address] Performed By: #### 4 091-5 #### [facility] CLIA [id number] [address] [place] [address] [place] CBC panel Auto (Bld)on 10-21 Erythrocyte distribution width (RBC) [Ratio] 14.6 % Normal 11.5-15.0 [facility] Comment on above: Order Comment: Speci men Type: BLOOD SPECIMEN [facility]: [facility] Address: [address] [place] [address] Performed By: #### 4 091-5 #### [facility] CLIA [id number] [address] [place] [address] [place] Hematocrit (Bld) [Volume fraction] 31.0 % Low 36.0-46.0 [facility] Comment on above: Order Comment: Speci men Type: BLOOD SPECIMEN Order[facility] Facility: [facility] Address: [address] [place] [address] Performed By: #### 4 091-5 #### [facility] CLIA [id number] [address] [place] [address] [place] Hemoglobin (Bld) [Mass/Vol] 9.3 g/dL Low 11.5-15.5 [facility] Comment on above: Order Comment: Speci men Type: BLOOD SPECIMEN Ordering Facility: [facility] Address: [address] [place] [address] Performed By: #### 4 091-5 #### [facility] CLIA [id number] [address] [place] [address] [place] MCH (RBC) [Entitic mass] 24.1 pg Low 26.0-34.0 [facility] Comment on above: Order Comment: Speci men Type: BLOOD SPECIMEN Order[facility] Facility: [facility] Address: [address] [place] [address] Performed By: #### 4 091-5 #### [facility] CLIA [id number] [address] [place] [address] [place] MCHC (RBC) [Mass/Vol] 30.0 g/dL Low 30.5-36.0 [facility] Comment on above: Order Comment: Speci men Type: BLOOD SPECIMEN Ordering Facility: [facility] Address: [address] [place] [address] Performed By: #### 4 091-5 #### [facility] CLIA [id number] [address] [place] [address] [place] MCV (RBC) [Entitic vol] 80.3 fL Normal 80.0-100.0 [facility] Comment on above: Order Comment: Speci men Type: BLOOD SPECIMEN [facility]: [facility] Address: [address] [place] [address] Performed By: #### 4 091-5 #### [facility] CLIA [id number] [address] [place] [address] [place] Nucleated RBC (Bld) [#/Vol] 10*3/uL Normal <0.01 [facility] Comment on above: Order Comment: Speci men Type: BLOOD SPECIMEN [facility] Address: [address] [place] [address] Performed By: #### 4 091-5 #### [facility] CLIA [id number] [address] [place] [address] [place] Platelet mean volume (Bld) [Entitic vol] 8.9 fL Low 9.0-12.7 [facility] Comment on above: Order Comment: Speci men Type: BLOOD SPECIMEN [facility] Address: [address] [place] [address] Performed By: #### 4 091-5 #### [facility] CLIA [id number] [address] [place] [address] [place] Platelets (Bld) [#/Vol] 441 10*3/uL High 150-400 [facility] Comment on above: Order Comment: Speci men Type: BLOOD SPECIMEN [facility]: [facility] Address: [address] [place] [address] Performed By: #### 4 091-5 #### [facility] CLIA [id number] [address] [place] [address] RBC (Bld) [#/Vol] 3.86 10*6/uL Low 3.90-5.20 [facility] Comment on above: Order Comment: Speci men Type: BLOOD SPECIMEN [facility]: [facility] Address: [address] [place] [address] Performed By: #### 4 091-5 #### [facility] CLIA [id number] [address] [place] [address] WBC (Bld) [#/Vol] 5.24 10*3/uL Normal 3.70-11.00 [facility] Comment on above: Order Comment: Speci men Type: BLOOD SPECIMEN [facility]: [facility] Address: [address] [place] [address] Performed By: #### 4 091-5 #### [facility] CLIA [id number] [address] [place] [address] OF [facility] Comprehensive metabolic 2000 panelon 10-21-2024 Albumin [Mass/Vol] 2.8 g/dL Low 3.2-5.0 [facility] Comment on above: Order Comment: Speci men Type: BLOOD SPECIMEN [facility] Address: [address] [place] [address] Performed By: #### 4 091-5 #### [facility] CLIA [id number] [address] [place] [address] ALP [Catalytic activity/Vol] 117 U/L Normal 45-117 [facility] Comment on above: Order Comment: Speci men Type: BLOOD SPECIMEN [facility] Address: [address] [place] [address] Performed By: #### 4 091-5 #### [facility] CLIA [id number] [address] [place] [address] [place] ALT [Catalytic activity/Vol] 19 U/L Normal 13-61 [facility] Comment on above: Order Comment: Speci men Type: BLOOD SPECIMEN Ordering Facility: [facility] Address: [address] [place] [address] Result Comment: Resu lts may be falsely depressed after the administration of Sulfasalazine and/or Sulfapyridine. Performed By: #### 4 091-5 #### [facility] CLIA [id number] [address] [place] [address] [place] Anion gap [Moles/Vol] 9 mmol/L Normal 5-16 [facility] Comment on above: Order Comment: Florii stef Type: BLOOD SPECIMEN [facility] Facility: [facility] Address: [address] [place] [address] Performed By: #### 4 091-5 #### [facility] CLIA [id number] [address] [place] [address] [place] AST [Catalytic activity/Vol] 13 U/L Normal 8-34 [facility] Comment on above: Order Comment: Speci stef Type: BLOOD SPECIMEN [facility]ing Facility: [facility] Address: [address] [place] [address] Result Comment: Resu lts may be falsely depressed after the administration of Sulfasalazine and/or Sulfapyridine. Performed By: #### 4 091-5 #### [facility] CLIA [id number] [address] [place] [address] [place] Bilirubin [Mass/Vol] 0.9 mg/dL Normal 0.2-1.0 [facility] Comment on above: Order Comment: Speci men Type: BLOOD SPECIMEN Ordering Facility: [facility] Address: [address] [place] [address] Performed By: #### 4 091-5 #### [facility] CLIA [id number] [address] [place] [address] [place] Calcium [Mass/Vol] 9.1 mg/dL Normal 8.5-10.5 [facility] Comment on above: Order Comment: Speci men Type: BLOOD SPECIMEN Ordering Facility: [facility] Address: [address] [place] [address] Performed By: #### 4 091-5 #### [facility] CLIA [id number] [address] [place] [address] [place] Chloride [Moles/Vol] 100 mmol/L Normal 98-107 [facility] Comment on above: Order Comment: Speci men Type: BLOOD SPECIMEN Ordering Facility: [facility] Address: [address] [place] [address] Performed By: #### 4 091-5 #### [facility] CLIA [id number] [address] [place] [address] [place] CO2 [Moles/Vol] 26 mmol/L Normal 21-32 [facility] Comment on above: Order Comment: Speci men Type: BLOOD SPECIMEN Ordering Facility: [facility] Address: [address] [place] [address] Performed By: #### 4 091-5 #### [facility] CLIA [id number] [address] [place] [address] [place] Creatinine [Mass/Vol] 0.98 mg/dL High 0.51-0.95 [facility] Comment on above: Order Comment: Speci men Type: BLOOD SPECIMEN Ordering Facility: [facility] Address: [address] [place] [address] Result Comment: Marissa ents receiving either N-Acetylcysteine (NAC) or Metamizole prior to venipuncture, may have falsely depressed results. Performed By: #### 4 091-5 #### [facility] CLIA [id number] [address] [place] [address] [place] Creatinine and Glomerular filtration rate.predicted panel (S/P/Bld) 75 mL/min/1.73m??? Normal >=60 [facility] Comment on above: Order Comment: Speci men Type: BLOOD SPECIMEN Ordering Facility: [facility] Address: [address] [place] [address] Result Comment: Zeny mated Glomerular Filtration Rate [...] GFR. Performed By: #### 4 091-5 #### [facility] CLIA [id number] [address] [place] [address] [place] Glucose [Mass/Vol] 140 mg/dL High 70-100 [facility] Comment on above: Order Comment: Dora men Type: BLOOD SPECIMEN Ordering Facility: [facility] Address: [address] [place] [address] Result Comment: The [place] Diabetes Association (ADA) provides guidance for cutoff [...] Standards of Medical Care in Diabetes 2016, [place] [employer]. Diabetes Care. 2016.39(Suppl 1). Results may be falsely elevated after the administration of Sulfapyridine. Results may be falsely depressed after the administration of Sulfasalazine. Performed By: #### 4 091-5 #### [facility] CLIA [id number] [address] [place] [address] [place] Potassium [Moles/Vol] 2.8 mmol/L Low 3.5-5.1 [facility] Comment on above: Order Comment: Dora finch Type: BLOOD SPECIMEN Ordering Facility: [facility] Address: [address] [place] [address] Performed By: #### 4 091-5 #### [facility] CLIA [id number] [address] [place] [address] [place] Protein [Mass/Vol] 6.7 g/dL Normal 6.0-8.5 [facility] Comment on above: Order Comment: Speci men Type: BLOOD SPECIMEN Ordering Facility: [facility] Address: [address] [place] [address] Performed By: #### 4 091-5 #### [facility] CLIA [id number] [address] [place] [address] [place] Sodium [Moles/Vol] 135 mmol/L Low 136-145 [facility] Comment on above: Order Comment: Speci men Type: BLOOD SPECIMEN Ordering Facility: [facility] Address: [address] [place] [address] Performed By: #### 4 091-5 #### [facility] CLIA [id number] [address] [place] [address] [place] Urea nitrogen [Mass/Vol] 9 mg/dL Normal 01-19 [facility] Comment on above: Order Comment: Speci men Type: BLOOD SPECIMEN Ordering Facility: [facility] Address: [address] [place] [address] Performed By: #### 4 091-5 #### [facility] CLIA [id number] [address] [place] [address] [place] Magnesium SerPl-mCncon 10-21 Magnesium [Mass/Vol] 1.4 mg/dL Low 1.6-2.6 [facility] Comment on above: Order Comment: Speci men Type: BLOOD SPECIMEN Ordering Facility: [facility] Address: [address] [place] [address] Performed By: #### 4 091-5 #### [facility] CLIA [id number] [address] [place] [address] [place] Basic metabolic 2000 panelon 10-20-2024 Anion gap [Moles/Vol] 10 mmol/L Normal - [facility] Comment on above: Order Comment: Speci men Type: BLOOD SPECIMEN Ordering Facility: [facility] Address: [address] [id number] Performed By: #### 4 5066-8 #### [facility] CLIA [id number] [address] [place] [address] [place] Calcium [Mass/Vol] 9.2 mg/dL Normal 8.5-10.5 [facility] Comment on above: Order Comment: Speci men Type: BLOOD SPECIMEN Ordering Facility: [facility] Address: [address] [place] [address] Performed By: #### 4 5066-8 #### [facility] CLIA [id number] [address] [place] [address] [place] Chloride [Moles/Vol] 100 mmol/L Normal 98-107 [facility] Comment on above: Order Comment: Speci men Type: BLOOD SPECIMEN Ordering Facility: [facility] Address: [address] [place] [address] Performed By: #### 4 5066-8 #### [facility] CLIA [id number] [address] [place] [address] [place] CO2 [Moles/Vol] 21 mmol/L Normal 21-32 [facility] Comment on above: Order Comment: Speci men Type: BLOOD SPECIMEN Ordering Facility: [facility] Address: [address] [place] [address] Performed By: #### 4 5066-8 #### [facility] CLIA [id number] [address] [place] [address] [place] Creatinine [Mass/Vol] 1.17 mg/dL High 0.51-0.95 [facility] Comment on above: Order Comment: Speci men Type: BLOOD SPECIMEN Ordering Facility: [facility] Address: [address] [place] [address] Result Comment: Marissa ents receiving either N-Acetylcysteine (NAC) or Metamizole prior to venipuncture, may have falsely depressed results. Performed By: #### 4 5066-8 #### [facility] CLIA [id number] [address] [place] [address] [place] Creatinine and Glomerular filtration rate.predicted panel (S/P/Bld) 60 mL/min/1.73m??? Normal >=60 [facility] Comment on above: Order Comment: Dora finch Type: BLOOD SPECIMEN Ordering Facility: [facility] Address: [address] [place] [address] Result Comment: Zeny mated Glomerular Filtration Rate [...] GFR. Performed By: #### 4 5066-8 #### [facility] CLIA [id number] [address] [place] [address] [place] Glucose [Mass/Vol] 118 mg/dL High 70-100 [facility] Comment on above: Order Comment: Dora finch Type: BLOOD SPECIMEN Ordering Facility: [facility] Address: [address] [place] [address] Result Comment: The [place] Diabetes Association (ADA) provides guidance for cutoff [...] Standards of Medical Care in Diabetes 2016, [place] [employer]. Diabetes Care. 2016.39(Suppl 1). Results may be falsely elevated after the administration of Sulfapyridine. Results may be falsely depressed after the administration of Sulfasalazine. Performed By: #### 4 5066-8 #### [facility] CLIA [id number] [address] [place], [place] [address] [place] Potassium [Moles/Vol] 3.3 mmol/L Low 3.5-5.1 [facility] Comment on above: Order Comment: Speci men Type: BLOOD SPECIMEN Ordering Facility: [facility] Address: [address] [place] [address] Performed By: #### 4 5066-8 #### [facility] CLIA [id number] [address] [place] [address] [place] Sodium [Moles/Vol] 131 mmol/L Low 136-145 [facility] Comment on above: Order Comment: Speci men Type: BLOOD SPECIMEN Ordering Facility: [facility] Address: [address] [place] [address] Performed By: #### 4 5066-8 #### [facility] CLIA [id number] [address] [place] [address] [place] Urea nitrogen [Mass/Vol] 13 mg/dL Normal 01-19 [facility] Comment on above: Order Comment: Speci men Type: BLOOD SPECIMEN Ordering Facility: [facility] Address: [address] [place] [address] Performed By: #### 4 5066-8 #### [facility] CLIA [id number] [address] [place] [address] [place] CBC panel Auto (Bld)on 10-20 Erythrocyte distribution width (RBC) [Ratio] 14.6 % Normal 11.5-15.0 [facility] Comment on above: Order Comment: Speci men Type: BLOOD SPECIMEN Ordering Facility: [facility] Address: [address] [place] [address] Performed By: #### 4 5066-8 #### [facility] CLIA [id number] [address] [place] [address] [place] Hematocrit (Bld) [Volume fraction] 32.1 % Low 36.0-46.0 [facility] Comment on above: Order Comment: Speci men Type: BLOOD SPECIMEN Ordering Facility: [facility] Address: [address] [place] [address] Performed By: #### 4 5066-8 #### [facility] CLIA [id number] [address] [place] [address] [place] Hemoglobin (Bld) [Mass/Vol] 10.3 g/dL Low 11.5-15.5 [facility] Comment on above: Order Comment: Speci men Type: BLOOD SPECIMEN Ordering Facility: [facility] Address: [address] [place] [address] Performed By: #### 4 5066-8 #### [facility] CLIA [id number] [address] [place] [address] [place] MCH (RBC) [Entitic mass] 24.5 pg Low 26.0-34.0 [facility] Comment on above: Order Comment: Speci men Type: BLOOD SPECIMEN Ordering Facility: [facility] Address: [address] [place] [address] Performed By: #### 4 5066-8 #### [facility] CLIA [id number] [address] [place] [address] STATES [place] [facility] MCHC (RBC) [Mass/Vol] 32.1 g/dL Normal 30.5-36.0 [facility] Comment on above: Order Comment: Speci men Type: BLOOD SPECIMEN Ordering Facility: [facility] Address: [address] [place] [address] Performed By: #### 4 5066-8 #### [facility] CLIA [id number] [address] [place] [address] [place] MCV (RBC) [Entitic vol] 76.4 fL Low 80.0-100.0 [facility] Comment on above: Order Comment: Speci men Type: BLOOD SPECIMEN Ordering Facility: [facility] Address: [address] [place] [address] Performed By: #### 4 5066-8 #### [facility] CLIA [id number] [address] [place] [address] [place] Nucleated RBC (Bld) [#/Vol] 10*3/uL Normal <0.01 [facility] Comment on above: Order Comment: Speci men Type: BLOOD SPECIMEN Ordering Facility: [facility] Address: [address] [id number] Performed By: #### 4 5066-8 #### [facility] CLIA [id number] [address] [place] [address] [place] Platelet mean volume (Bld) [Entitic vol] 9.1 fL Normal 9.0-12.7 [facility] Comment on above: Order Comment: Speci men Type: BLOOD SPECIMEN Ordering Facility: [facility] Address: [address] [place], [place] [address] Performed By: #### 4 5066-8 #### [facility] CLIA [id number] [address] [place] [address] [place] Platelets (Bld) [#/Vol] 485 10*3/uL High 150-400 [facility] Comment on above: Order Comment: Speci men Type: BLOOD SPECIMEN Ordering Facility: [facility] Address: [address] [place] [address] Performed By: #### 4 5066-8 #### [facility] CLIA [id number] [address] [place] [address] [place] RBC (Bld) [#/Vol] 4.20 10*6/uL Normal 3.90-5.20 [facility] Comment on above: Order Comment: Speci men Type: BLOOD SPECIMEN Ordering Facility: [facility] Address: [address] [place] [address] Performed By: #### 4 5066-8 #### [facility] CLIA [id number] [address] [place] [address] [place] WBC (Bld) [#/Vol] 8.42 10*3/uL Normal 3.70-11.00 [facility] Comment on above: Order Comment: Speci men Type: BLOOD SPECIMEN Ordering Facility: [facility] Address: [address] [place] [address] Performed By: #### 4 5066-8 #### [facility] CLIA [id number] [address] [place], [place] [address] [facility] [place] CONSULTon 10-20-2024 CONSULT HNO ID: [id number] Author: TUNG JENNINGS MD Service: Gastroenterology Author [...] extremity lateral fasciotomy closures 08/23/2024, presented to [facility] on 10/19 from SNF for frequent recurring diarrhea. Noted recent hospitalization here at [facility] for accidental overdose at her facility with [...] any abdomin (more content not included)... 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 [address] [id number] 10/19/2024 Patient: DALY EVANS Sex: Female : 1985 Age: 39y MEASUREMENTS: Wt: 86.2 kg, Ht/Jean-Paul: 67.0 in, BMI: 29.76 ALLERGIES: [place] Medication Ordered Medication Administration Date/Time IV NS [...] 19:20 John Velasco R.N. 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 2 of 2 Normal [facility] ED NURSES CLINICAL NOTEon ED NURSES CLINICAL NOTE Nurse Narrative Nurse Clinical Narrative [address] [address] [id number] 10/19/2024 14:05:00 Patient: DALY EVANS Sex: Female : 1985 Age: 39y Disposition: Transfer to [facility] Disposition Decision Time: 19:10/19/2024 Departure Time: [...] -- 14:28 10/19/24 EDT Prashanth Isidro R.N. 14:10/19/24. BP: 90/63 [...] diarrhea. -- 14:10/19/24 CHARLY Isidro R.N. Allergies: [place] -- 14:10/19/24 CHARLY Isidro R.N. Problems: superior mesenteric artery injury -- 14:10/19/24 CHARLY Isidro R.N. embolism and thrombosis of thoracic aorta -- 14:10/19/24 CHARLY Isidro R.N. 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 psychcoactive substance abuse -- 14:10/19/24 CHARLY Isidro R.N. history of suicide attempt -- 14:10/19/24 CHARLY Isidro R.N. Depression -- 14:10/19/24 CHARLY Isidro R.N. Diabetes Mellitus -- 14:10/19/24 CHARLY Isidro R.N. Monoclonal gammopathy (clinical) -- 14:10/19/24 [...] Prashanth Isidro R.N. Bipolar Disorder -- 14:10/19/24 [place] Prashanth Isidro R.N. Colostomy (procedure) -- 14:10/19/24 EDT Prashanth Isidro R.N. ADDITIONAL SURGERIES: abd surgery with colostomy -- 14:10/19/24 [place] Prashanth Isidro R.N. compartmental syndrome bilat legs -- 14:10/19/24 EDT Prashanth Isidro R.N. Cholecystectomy -- 14:10/19/24 [place] Prashanth Isidro R.N. -- 14:10/19/24 EDT Prashanth Isidro R.N. Carpal Tunnel Surgery -- 14:10/19/24 EDT Prashanth Isidro R.N. History 14:10/19/24. SOCIAL HX: Never smoker. No alcohol use or drug use. The patient has not traveled outside the [place] Infectious disease exposure: No infectious disease exposure. ABUSE ASSESSMENT: Abuse denied. No suspicion of abuse (more content not included)... Normal [facility] ED ORDER SHEET (CPOE ONLY)on 10-20-2024 ED ORDER SHEET (CPOE ONLY) Order Sheet Order Sheet [address] [place] [address] [id number] 10/19/2024 Patient: DALY EVANS Sex: Female : 1985 Age: 39y MEASUREMENTS: Wt: 86.2 kg, Ht/Jean-Paul: 67.0 in, BMI: 29.76 ALLERGIES: [place] MEDICATION/IV/DRIP/FLUID ORDERS Order Description Priority Entered Acknowledged [...] 10/19/2024 Maliha Alaniz R.N. Charles Wilbur, D.O. RPirscilaNPriscila Magnesium Stat Stat 18:28 10/19/2024 18:32 10/19/2024 19:27 10/19/2024 Jeny Alaniz R.N. Charles Wilbur, D.O. R.N. DIAGNOSTIC STUDY ORDERS Order Description Priority Entered Acknowledged Completed STAFF ORDERS Order Description Priority Entered Acknowledged Collected Completed IV Saline Lock 14:51 10/19/2024 14:51 10/19/2024 19:26 10/19/2024 Maliha Alaniz R.N. Charles Wilbur, D.O. R.N. [Electronically signed by Herbert Flores D.O. (10/20/2024 07:16 EDT)] 2 of 2 Normal [facility] ED PHYSICIAN CLINICAL REPORT on 10-20-2024 ED PHYSICIAN CLINICAL REPORT Narrative Physician Clinical Narrative [address] [address] [id number] 10/19/2024 14:05:00 Patient: DALY EVANS Sex: Female : 1985 Age: 39y Disposition: Transfer to [facility] Disposition Decision Time: 19:03 10/19/2024 Departure [...] syringe: twice a day . (give per [place] MAR dose of 0.95ml) escitalopram 20 mg [...] 1500 mg twice a day . Allergies: [place] SOCIAL HISTORY Never smoker. No alcohol use. [...] Above high (more content not included)... Normal [facility] ED [facility] BILL 10-20-2024 ED [facility] [address] [place] [address] [id number] 10/19/2024 Patient: DALY EVANS Sex: Female : 1985 Age: 39y Facility Professional Category Item Description Code Code Quantity Fee Total Drugs Normal Saline 077515 2 $0.00 $0.00 1000cc (057576) Nurse/E/M EMERGENCY 521531 1 $0.00 $0.00 DEPT VISIT HIGH SEVERITYFUNCJ (99925-58) Nurse/IV/IM/Infusions Hydration 921743 4 $0.00 $0.00 additional hour (98331) Nurse/IV/IM/Infusions Hydration initial 471812 1 $0.00 $0.00 (50399) Grand $0.00 Total Providers Herbert Flores D.O. [...] and ureter, unspecified 2 of 2 Normal [facility] ED VISIT SUMMARYon ED VISIT SUMMARY Visit Overview Visit Overview [address] [address] [id number] 10/19/2024 Patient: DALY EVANS Sex: Female : [...] She denies any syncopal episodes. ) ALLERGIES [place] [facility]ICATION[facility] acetaminophen 325 mg chewable tablet: 1 tablet every six hours . Visit Overview aspirin 81 mg chewable tablet: 1 tablet once a day . atorvastatin 40 mg tablet: 1 tablet once a day . enoxaparin 100 mg/mL subcutaneous syringe: twice a day . (give per [place] MAR dose of 0.95ml) escitalopram 20 mg [...] RENAL INSUFFICIENCY SYNCOPE 4 of 4 Normal [facility] ED VITALS FLOW SHEETon 10-20 ED VITALS FLOW SHEET Vitals Vital Sign Flow Sheet [address] [place] [address] [id number] 10/19/2024 Patient: DALY EVANS Sex: Female : [...] 98.1 F 0 1 of 1 Normal [facility] Magnesium SerPl-mCncon 10-20 Magnesium [Mass/Vol] 1.7 mg/dL Normal 1.6-2.6 [facility] Comment on above: Order Comment: Speci men Type: BLOOD SPECIMEN Ordering Facility: [facility] Address: [address] [place] [address] Performed By: #### 4 5066-8 #### [facility] CLIA [id number] [address] [place] [address] NUTRITIONon 10-20-2024 NUTRITION HNO ID: [id number] Author: MOUNIKA SARABIA RD Service: ? Author [...] needs: 1849 - 2049 Calorie Calculation Method: Canadian-St. Jeor (with activity factor) Estimated protein needs [...] October 20, 2024 TIME: 2:59 PM Normal [facility] TSH SerPl-aCncon 10-20-2024 TSH Qn 2.798 m[IU]/L Normal 0.358-3.740 [facility] Comment on above: Order Comment: Speci men Type: BLOOD SPECIMEN Ordering Facility: [facility] Address: [address] [place] [address] Result Comment: 3rd generation ultra sensitive TSH. Performed By: #### 4 5066-8 #### [facility] CLIA [id number] [address] [place] [address] [place] BMP with eGFRon 10-19-2024 AGE 39 years Normal [facility] Comment on above: Performed By: #### 2 68198 #### [facility],[address] [place] [address] Anion gap [Moles/Vol] 17 mmol/L Normal 10 - 20 [facility] Comment on above: Performed By: #### 2 55955 #### [facility],[address] [place] [address] BMP with eGFR Normal [facility] Comment on above: Result Comment: BASI C METABOLIC PANEL Performed By: #### 2 24867 #### [facility],[address] [place] [address] Calcium [Mass/Vol] 9.8 mg/dL Normal 8.5 - 10.1 [facility] Comment on above: Result Comment: CALC IUM REPEATED Performed By: #### 2 98455 #### [facility],[address] [place] [address] Chloride [Moles/Vol] 97 mmol/L Low 98 - 107 [facility] Comment on above: Performed By: #### 2 50555 #### [facility],[address] [place] [address] CO2 [Moles/Vol] 23.4 mmol/L Normal 21.0 - 32.0 [facility] Comment on above: Performed By: #### 2 01189 #### [facility],[address] [place] [address] Creatinine [Mass/Vol] 1.44 mg/dL High 0.55 - 1.02 [facility] Comment on above: Performed By: #### 2 87924 #### [facility],[address] [place] [address] 21660 eGFR 40 ML/MINUTE Low 60 - 999 [facility] Comment on above: Performed By: #### 2 34888 #### [facility],[address] [place] [address] eGFR(AA) 49 ML/MINUTE Low 60 - 999 [facility] Comment on above: Result Comment: ACCO RDING TO THE NATIONAL KIDNEY DISEASE EDUCATION PROGRAM(NKDE), A NORMAL eGFR IS A VALUE GREATER THAN OR EQUAL TO 60 ML/MIN/1.73 SQ METERS. CHRONIC KIDNEY DISEASE: <60mL/MIN/1.73 SQ METERS KIDNEY FAILURE: <15mL/MIN/1.73 SQ METERS THIS TEST SHOULD ONLY BE USED FOR PATIENTS 18 YEARS OF AGE AND OLDER. Performed By: #### 2 99232 #### [facility],[address] [place] [address] Glucose [Mass/Vol] 108 mg/dL High 74 - 106 [facility] Comment on above: Performed By: #### 2 14686 #### [address] [address] Potassium [Moles/Vol] 3.0 mmol/L Low 3.5 - 5.1 [facility] Comment on above: Performed By: #### 2 08035 #### [facility],[address] [place] [address] Sodium [Moles/Vol] 134 mmol/L Low 136 - 145 [facility] Comment on above: Performed By: #### 2 24761 #### [address] [address] Urea nitrogen [Mass/Vol] 19 mg/dL High 7 - 18 [facility] Comment on above: Performed By: #### 2 34602 #### [facility],[address] [place] [address] CBC + DIFFon 10-19-2024 Baso # 0.07 x10EE3/UL Normal 0.00 - 0.10 [facility] Comment on above: Performed By: #### 2 64968 ####[address] [address] Basophils/100 WBC (Bld) 0.6 % Normal 0.0 - 2.0 [facility] Comment on above: Performed By: #### 2 [address]6926 ####[place] [address] CBC + DIFF Normal [facility] Comment on above: Result Comment: CBC- COMPLETE BLOOD COUNT Performed By: #### 2 87018 ####[place] [address] EO # 0.06 x10EE3/UL Normal 0.00 - 0.50 [facility] Comment on above: Performed By: #### 2 61562 ####[place] [address] Eosinophils/100 WBC (Bld) 0.5 % Normal 0.0 - 7.0 [facility] Comment on above: Performed By: #### 2 81750 ####[place] [address] Erythrocyte distribution width (RBC) [Ratio] 16.3 % High 12.0 - 15.6 [facility] Comment on above: Performed By: #### 2 66920 ####[place] [address] Hematocrit (Bld) [Volume fraction] 38.0 % Normal 34.0 - 46.0 [facility] Comment on above: Performed By: #### 2 68051 ####[place] [address] Hemoglobin (Bld) [Mass/Vol] 12.6 g/dL Normal 12.0 - 16.0 [facility] Comment on above: Performed By: #### 2 32764 ####[place] [address] Lymph # 2.40 x10EE3/UL Normal 0.80 - 2.80 [facility] Comment on above: Performed By: #### 2 71850 ####[facility] [address] Lymphocytes/100 WBC (Bld) 20.0 % Normal 20.0 - 45.0 [facility] Comment on above: Performed By: #### 2 04601 ####[facility],[address] [place] [address] MANUAL DIFF N/A Normal [facility] Comment on above: Performed By: #### 2 28645 ####[place] [address] MCH (RBC) [Entitic mass] 25 pg Low 27 - 33 [facility] Comment on above: Performed By: #### 2 64664 ####[place] [address] MCHC 33 X10 3 Normal 32 - 36 [facility] Comment on above: Performed By: #### 2 67002 ####[place] [address] MCV (RBC) [Entitic vol] 74 fL Low 80 - 99 [facility] Comment on above: Performed By: #### 2 51231 ####[place] [address] Lea # 0.86 x10EE3/UL Normal 0.20 - 1.00 [facility] Comment on above: Performed By: #### 2 91613 ####[place] [address] MONOS % 7.2 % Normal 0.0 - 10.0 [facility] Comment on above: Performed By: #### 2 95206 ####[place] [address] Morphology Stan (Bld) [Interp] SEE BELOW Normal [facility] Comment on above: Performed By: #### 2 26858 ####[place] [address] Neut # 8.62 x10EE3/UL High 1.50 - 7.10 [facility] Comment on above: Performed By: #### 2 16678 ####[facility],[address] [place] [address] 03561 Neutrophils/100 WBC (Bld) 71.8 % Normal 46.0 - 76.0 [facility] Comment on above: Performed By: #### 2 68156 ####[facility],[address] [place] [address] 64573 PLATELET 804 x10EE3/UL High 150 - 450 [facility] Comment on above: Performed By: #### 2 97744 ####[facility],[address] [place] [address] 37234 Platelet mean volume (Bld) [Entitic vol] 7.9 fL Normal 6.6 - 10.5 [facility] Comment on above: Result Comment: AUTO MATED DIFFERENTIAL Performed By: #### 2 65340 ####[facility],[address] [place] [address] 07337 PLT EST INCREASED Normal [facility] Comment on above: Performed By: #### 2 94744 ####[facility],[address] [place] [address] 60169 RBC 5.12 x 10EE6/UL Normal 4.10 - 5.30 [facility] Comment on above: Performed By: #### 2 62249 ####[facility],[address] [place] [address] 34025 WBC 12.0 x 10EE3/UL High 4.5 - 10.8 [facility] Comment on above: Performed By: #### 2 30508 ####[facility],[address] [place] [address] 75487 CMP with eGFRon 10-19-2024 AGE 39 years Normal [facility] Comment on above: Performed By: #### 2 62030 ####[facility],[address] [place] [address] 54907 Albumin [Mass/Vol] 3.5 g/dL Normal 3.4 - 5.0 [facility] Comment on above: Performed By: #### 2 91971 ####[facility],[address] [place] [address] 26709 Albumin/Globulin [Mass ratio] 0.6 {ratio} Low 0.9 - 1.6 [facility] Comment on above: Performed By: #### 2 98955 ####[facility],[address] [place] [address] 12526 ALK PHOS 170 U/L High 46 - 116 [facility] Comment on above: Performed By: #### 2 96553 ####[facility],[address] [place] [address] 39128 ALT [Catalytic activity/Vol] 37 U/L Normal 16 - 63 [facility] Comment on above: Performed By: #### 2 01370 ####[facility],[address] [place], [place] [address] Anion gap [Moles/Vol] 17 mmol/L Normal 10 - 20 [facility] Comment on above: Performed By: #### 2 63583 ####[facility],[address] [place] [address] 58495 AST [Catalytic activity/Vol] 30 U/L Normal 13 - 39 [facility] Comment on above: Performed By: #### 2 07140 ####[facility],[address] [place] [address] 21601 B/C RATIO 10 ratio Normal 0 - 30 [facility] Comment on above: Performed By: #### 2 68442 ####[facility],[address] [place] [address] 91149 Bilirubin [Mass/Vol] 1.1 mg/dL High 0.2 - 1.0 [facility] Comment on above: Performed By: #### 2 11152 ####[facility],[address] [place] [address] 92805 Calcium [Mass/Vol] 9.7 mg/dL Normal 8.5 - 10.1 [facility] Comment on above: Performed By: #### 2 10362 ####[facility],[address] [place], [place] [address] Chloride [Moles/Vol] 92 mmol/L Low 98 - 107 [facility] Comment on above: Performed By: #### 2 10469 ####[facility],[address] [place] [address] CMP with eGFR Normal [facility] Comment on above: Result Comment: COMP REHENSIVE METABOLIC PANEL Performed By: #### 2 92743 ####[facility],[address] [place] [address] CO2 [Moles/Vol] 24.6 mmol/L Normal 21.0 - 32.0 [facility] Comment on above: Performed By: #### 2 56495 ####[facility],[address] [place], [place] [address] Creatinine [Mass/Vol] 2.18 mg/dL High 0.55 - 1.02 [facility] Comment on above: Performed By: #### 2 85371 ####[facility],[address] [place], [place] [address] eGFR 25 ML/MINUTE Low 60 - 999 [facility] Comment on above: Performed By: #### 2 70857 ####[facility],[address] [place], [place] [address] eGFR(AA) 30 ML/MINUTE Low 60 - 999 [facility] Comment on above: Result Comment: ACCO RDING TO THE NATIONAL KIDNEY DISEASE EDUCATION PROGRAM(NKDE), A NORMAL eGFR IS A VALUE GREATER THAN OR EQUAL TO 60 ML/MIN/1.73 SQ METERS. CHRONIC KIDNEY DISEASE: <60mL/MIN/1.73 SQ METERS KIDNEY FAILURE: <15mL/MIN/1.73 SQ METERS THIS TEST SHOULD ONLY BE USED FOR PATIENTS 18 YEARS OF AGE AND OLDER. Performed By: #### 2 88201 ####[facility],[address] [place] [address] 52204 Globulin (S) [Mass/Vol] 6.0 g/dL High 1.5 - 3.8 [facility] Comment on above: Performed By: #### 2 91264 ####[facility],[address] [place] [address] 03100 Glucose [Mass/Vol] 146 mg/dL High 74 - 106 [facility] Comment on above: Performed By: #### 2 17016 ####[facility],[address] [place] [address] 27233 Potassium [Moles/Vol] 3.3 mmol/L Low 3.5 - 5.1 [facility] Comment on above: Performed By: #### 2 75164 ####[facility],[address] [place] [address] 05254 Protein [Mass/Vol] 9.5 g/dL High 6.4 - 8.2 [facility] Comment on above: Performed By: #### 2 17965 ####[facility],[address] [place] [address] 00085 Sodium [Moles/Vol] 130 mmol/L Low 136 - 145 [facility] Comment on above: Performed By: #### 2 54503 ####[facility],[address] [place] [address] 49095 Urea nitrogen [Mass/Vol] 21 mg/dL High 7 - 18 [facility] Comment on above: Performed By: #### 2 33404 ####[facility],[address] [place] [address] 19646 HISTORY PHYSICALon HISTORY PHYSICAL HNO ID: [id number] Author: MICHAEL ELLIS MD Service: Hospital Medicine Author Type: Physician Type: H&P Filed: 10/19/2024 23:29 Note Text: HISTORY AND PHYSICAL EXAMINATION PATIENT NAME: Daly Evans SERVICE DATE AND TIME: 10/19/2024 11:22 PM PRIMARY CARE PHYSICIAN: Fredrick Boland DO CHIEF COMPLAINT: Persistent stools since having ileostomy placed at [facility] HPI: The patient is a 39-year-old female with a past medical history of bipolar disorder, generalized anxiety/panic disorder, iron deficiency anemia, vitamin D deficiency, tobacco abuse, polysubstance abuse with a history of suicide attempt and presented to [facility] 08/20/2024 with severe abdominal pain and [...] jejunostomy and closure open abdomen 08/22/2024 at [facility] during that stay developed a DVT and was placed on Lovenox, presently in a snf facility who continues to have frequent recurring diarrhea. She was on TPN through a PICC line until 2 weeks ago. Due to her persistent diarrhea she was sent to the outside ER. The outside ER contacted her surgeon at the [facility] who felt patient could safely be [...] Patient quit (more content not included)... Normal [facility] MAGNESIUMon 10-19-2024 Magnesium [Mass/Vol] 1.9 mg/dL Normal 1.8 - 2.4 [facility] Comment on above: Performed By: #### 2 47544 #### [facility],[address] [place] [address] TROPONINon 10-19-2024 HS TROPONIN 4.1 pg/mL Normal 0.0 - 51.4 [facility] Comment on above: Performed By: #### 2 13340 #### [facility],[address] [place], [place] [address] BMP with eGFRon 10-16-2024 AGE 39 years Normal [facility] Comment on above: Performed By: #### 2 99460 #### [facility],[address] [place] [address] Anion gap [Moles/Vol] 14 mmol/L Normal 10 - 20 [facility] Comment on above: Performed By: #### 2 65205 #### [facility],[address] [place] [address] BMP with eGFR Normal [facility] Comment on above: Result Comment: BASI C METABOLIC PANEL Performed By: #### 2 30041 #### [facility],[address] [place] [address] Calcium [Mass/Vol] 8.7 mg/dL Normal 8.5 - 10.1 [facility] Comment on above: Performed By: #### 2 39508 #### [facility],[address] [place], [place] [address] Chloride [Moles/Vol] 99 mmol/L Normal 98 - 107 [facility] Comment on above: Performed By: #### 2 43960 #### [facility],[address] [place], [place] [address] CO2 [Moles/Vol] 24.5 mmol/L Normal 21.0 - 32.0 [facility] Comment on above: Performed By: #### 2 28502 #### [facility],[address] [place], [place] [address] Creatinine [Mass/Vol] 1.16 mg/dL High 0.55 - 1.02 [facility] Comment on above: Performed By: #### 2 12427 #### [facility],[address] [place] [address] 25731 eGFR 51 ML/MINUTE Low 60 - 999 [facility] Comment on above: Performed By: #### 2 56084 #### [facility],[address] [place] [address] 65687 GFR/1.73 sq M.predicted among non-blacks MDRD (S/P/Bld) [Vol rate/Area] mL/min/{1.73_m2} Normal 60 - 999 [facility] Comment on above: Result Comment: ACCO RDING TO THE NATIONAL KIDNEY DISEASE EDUCATION PROGRAM(NKDE), A NORMAL eGFR IS A VALUE GREATER THAN OR EQUAL TO 60 ML/MIN/1.73 SQ METERS. CHRONIC KIDNEY DISEASE: <60mL/MIN/1.73 SQ METERS KIDNEY FAILURE: <15mL/MIN/1.73 SQ METERS THIS TEST SHOULD ONLY BE USED FOR PATIENTS 18 YEARS OF AGE AND OLDER. Performed By: #### 2 32486 #### [address] [address] Glucose [Mass/Vol] 97 mg/dL Normal 74 - 106 [facility] Comment on above: Performed By: #### 2 15620 #### [address] [address] Potassium [Moles/Vol] 3.2 mmol/L Low 3.5 - 5.1 [facility] Comment on above: Performed By: #### 2 23399 #### [address] [address] Sodium [Moles/Vol] 134 mmol/L Low 136 - 145 [facility] Comment on above: Performed By: #### 2 29132 #### [address] [address] Urea nitrogen [Mass/Vol] 22 mg/dL High 7 - 18 [facility] Comment on above: Performed By: #### 2 20752 #### [address] [address] CBC + DIFFon 10-16-2024 Baso # 0.02 x10EE3/UL Normal 0.00 - 0.10 [facility] Comment on above: Performed By: #### 2 08056 #### [facility],[address] [place] [address] 79440 Basophils/100 WBC (Bld) 0.4 % Normal 0.0 - 2.0 [facility] Comment on above: Performed By: #### 2 55018 #### [facility],[address] [place] [address] 70972 CBC + DIFF Normal [facility] Comment on above: Result Comment: CBC- COMPLETE BLOOD COUNT Performed By: #### 2 05707 #### [facility],[address] [place] [address] 36064 EO # 0.15 x10EE3/UL Normal 0.00 - 0.50 [facility] Comment on above: Performed By: #### 2 91057 #### [facility],[address] [place] [address] 55934 Eosinophils/100 WBC (Bld) 2.3 % Normal 0.0 - 7.0 [facility] Comment on above: Performed By: #### 2 37934 #### [facility],[address] [place] [address] 92404 Erythrocyte distribution width (RBC) [Ratio] 16.1 % High 12.0 - 15.6 [facility] Comment on above: Performed By: #### 2 66362 #### [facility],[address] [place] [address] 35140 Hematocrit (Bld) [Volume fraction] 31.0 % Low 34.0 - 46.0 [facility] Comment on above: Performed By: #### 2 70677 #### [facility],[address] [place] [address] 66991 Hemoglobin (Bld) [Mass/Vol] 10.3 g/dL Low 12.0 - 16.0 [facility] Comment on above: Performed By: #### 2 86471 #### [facility],[address] [place] [address] 26218 Lymph # 2.20 x10EE3/UL Normal 0.80 - 2.80 [facility] Comment on above: Performed By: #### 2 03476 #### [facility],[address] [place] [address] 68792 Lymphocytes/100 WBC (Bld) 33.9 % Normal 20.0 - 45.0 [facility] Comment on above: Performed By: #### 2 58542 #### [facility],[address] [place] [address] 99788 MANUAL DIFF N/A Normal [facility] Comment on above: Performed By: #### 2 18827 #### [facility],[address] [place] [address] 02055 MCH (RBC) [Entitic mass] 24 pg Low 27 - 33 [facility] Comment on above: Performed By: #### 2 67971 #### [facility],[address] [place] [address] 71439 MCHC 33 X10 3 Normal 32 - 36 [facility] Comment on above: Performed By: #### 2 51588 #### [facility],[address] [place] [address] 23913 MCV (RBC) [Entitic vol] 73 fL Low 80 - 99 [facility] Comment on above: Performed By: #### 2 75134 #### [facility],[address] [place] [address] 84303 Lea # 0.66 x10EE3/UL Normal 0.20 - 1.00 [facility] Comment on above: Performed By: #### 2 36324 #### [facility],[address] [place] [address] 33423 MONOS % 10.2 % High 0.0 - 10.0 [facility] Comment on above: Performed By: #### 2 96603 #### [facility],[address] [place] [address] 41097 Morphology Stan (Bld) [Interp] N/A Normal [facility] Comment on above: Performed By: #### 2 26902 #### [facility],[address] [place] [address] 14943 Neut # 3.46 x10EE3/UL Normal 1.50 - 7.10 [facility] Comment on above: Performed By: #### 2 19588 #### [facility],[address] [place] [address] 60292 Neutrophils/100 WBC (Bld) 53.3 % Normal 46.0 - 76.0 [facility] Comment on above: Performed By: #### 2 47033 #### [facility],[address] [place] [address] 27690 PLATELET 516 x10EE3/UL High 150 - 450 [facility] Comment on above: Performed By: #### 2 63554 #### [facility],[address] [place] [address] 92624 Platelet mean volume (Bld) [Entitic vol] 7.2 fL Normal 6.6 - 10.5 [facility] Comment on above: Result Comment: AUTO MATED DIFFERENTIAL Performed By: #### 2 49470 #### [facility],[address] [place] [address] 82037 RBC 4.23 x 10EE6/UL Normal 4.10 - 5.30 [facility] Comment on above: Performed By: #### 2 10550 #### [facility],[address] [place] [address] 76077 WBC 6.5 x 10EE3/UL Normal 4.5 - 10.8 [facility] Comment on above: Performed By: #### 2 64173 #### [facility],[address] [place] [address] 05747 CBC + DIFFon 10-15-2024 Baso # 0.04 x10EE3/UL Normal 0.00 - 0.10 [facility] Comment on above: Performed By: #### 2 24193 #### [facility],[address] [place] [address] 39168 Basophils/100 WBC (Bld) 0.5 % Normal 0.0 - 2.0 [facility] Comment on above: Performed By: #### 2 12747 #### [facility],[address] [place] [address] CBC + DIFF Normal [facility] Comment on above: Result Comment: CBC- COMPLETE BLOOD COUNT Performed By: #### 2 62902 #### [facility],[address] [place] [address] EO # 0.15 x10EE3/UL Normal 0.00 - 0.50 [facility] Comment on above: Performed By: #### 2 48886 #### [facility],[address] [place], [place] [address] Eosinophils/100 WBC (Bld) 1.9 % Normal 0.0 - 7.0 [facility] Comment on above: Performed By: #### 2 18604 #### [facility],[address] [place] [address] Erythrocyte distribution width (RBC) [Ratio] 16.6 % High 12.0 - 15.6 [facility] Comment on above: Performed By: #### 2 62893 #### [facility],[address] [place] [address] Hematocrit (Bld) [Volume fraction] 36.9 % Normal 34.0 - 46.0 [facility] Comment on above: Performed By: #### 2 30815 #### [facility],[address] [place], [place] [address] Hemoglobin (Bld) [Mass/Vol] 12.3 g/dL Normal 12.0 - 16.0 [facility] Comment on above: Result Comment: TEST REPEATED Performed By: #### 2 58016 #### [facility],[address] [place] [address] 19955 Lymph # 2.93 x10EE3/UL High 0.80 - 2.80 [facility] Comment on above: Performed By: #### 2 99006 #### [facility],[address] [place] [address] 32300 Lymphocytes/100 WBC (Bld) 37.1 % Normal 20.0 - 45.0 [facility] Comment on above: Performed By: #### 2 51036 #### [facility],[address] [place] [address] 22324 MANUAL DIFF N/A Normal [facility] Comment on above: Performed By: #### 2 25913 #### [facility],[address] [place] [address] 21091 MCH (RBC) [Entitic mass] 25 pg Low 27 - 33 [facility] Comment on above: Performed By: #### 2 62863 #### [facility],[address] [place] [address] 03030 MCHC 33 X10 3 Normal 32 - 36 [facility] Comment on above: Performed By: #### 2 68860 #### [facility],[address] [place] [address] 02236 MCV (RBC) [Entitic vol] 75 fL Low 80 - 99 [facility] Comment on above: Performed By: #### 2 41715 #### [facility],[address] [place] [address] 19564 Lea # 0.58 x10EE3/UL Normal 0.20 - 1.00 [facility] Comment on above: Performed By: #### 2 41637 #### [facility],[address] [place] [address] 84072 MONOS % 7.3 % Normal 0.0 - 10.0 [facility] Comment on above: Performed By: #### 2 98048 #### [facility],[address] [place] [address] 73338 Morphology Stan (Bld) [Interp] N/A Normal [facility] Comment on above: Performed By: #### 2 36240 #### [facility],[address] [place] [address] 56720 Neut # 4.21 x10EE3/UL Normal 1.50 - 7.10 [facility] Comment on above: Performed By: #### 2 63855 #### [facility],[address] [place] [address] 16619 Neutrophils/100 WBC (Bld) 53.3 % Normal 46.0 - 76.0 [facility] Comment on above: Performed By: #### 2 39748 #### [facility],[address] [place] [address] 82346 PLATELET 562 x10EE3/UL High 150 - 450 [facility] Comment on above: Performed By: #### 2 37754 #### [facility],[address] [place] [address] 11634 Platelet mean volume (Bld) [Entitic vol] 8.2 fL Normal 6.6 - 10.5 [facility] Comment on above: Result Comment: AUTO MATED DIFFERENTIAL Performed By: #### 2 77928 #### [facility],[address] [place] [address] 78859 RBC 4.92 x 10EE6/UL Normal 4.10 - 5.30 [facility] Comment on above: Performed By: #### 2 16401 #### [facility],[address] [place] [address] 92103 WBC 7.9 x 10EE3/UL Normal 4.5 - 10.8 [facility] Comment on above: Performed By: #### 2 40229 #### [facility],[address] [place] [address] 14252 CMP with eGFRon 10-15-2024 AGE 39 years Normal [facility] Comment on above: Performed By: #### 2 36920 #### [facility],[address] [place] [address] 82633 Albumin [Mass/Vol] 2.9 g/dL Low 3.4 - 5.0 [facility] Comment on above: Performed By: #### 2 74046 #### [facility],[address] [place] [address] 64769 Albumin/Globulin [Mass ratio] 0.5 {ratio} Low 0.9 - 1.6 [facility] Comment on above: Performed By: #### 2 04701 #### [facility],[address] [place] [address] 90351 ALK PHOS 151 U/L High 46 - 116 [facility] Comment on above: Performed By: #### 2 37984 #### [facility],[address] [place] [address] 19830 ALT [Catalytic activity/Vol] 45 U/L Normal 16 - 63 [facility] Comment on above: Performed By: #### 2 59520 #### [facility],[address] [place] [address] 94672 Anion gap [Moles/Vol] 21 mmol/L High 10 - 20 [facility] Comment on above: Performed By: #### 2 79764 #### [facility],[address] [place] [address] 85038 AST [Catalytic activity/Vol] 30 U/L Normal 13 - 39 [facility] Comment on above: Performed By: #### 2 62884 #### [facility],[address] [place] [address] 12587 B/C RATIO 19 ratio Normal 0 - 30 [facility] Comment on above: Performed By: #### 2 57209 #### [facility],[address] [place] [address] 74832 Bilirubin [Mass/Vol] 0.9 mg/dL Normal 0.2 - 1.0 [facility] Comment on above: Performed By: #### 2 41259 #### [facility],[address] [place] [address] 28604 Calcium [Mass/Vol] 9.4 mg/dL Normal 8.5 - 10.1 [facility] Comment on above: Result Comment: RESU LTS REPEATED AND VERIFIED Performed By: #### 2 86739 #### [facility],[address] [place] [address] 09247 Chloride [Moles/Vol] 94 mmol/L Low 98 - 107 [facility] Comment on above: Performed By: #### 2 59660 #### [facility],[address] [place] [address] 83545 CMP with eGFR Normal [facility] Comment on above: Result Comment: COMP REHENSIVE METABOLIC PANEL Performed By: #### 2 92029 #### [facility],[address] [place] [address] 43119 CO2 [Moles/Vol] 20.9 mmol/L Low 21.0 - 32.0 [facility] Comment on above: Result Comment: RESU LTS REPEATED AND VERIFIED Performed By: #### 2 82626 #### [facility],[address] [place] [address] 64822 Creatinine [Mass/Vol] 1.49 mg/dL High 0.55 - 1.02 [facility] Comment on above: Result Comment: RESU LTS REPEATED AND VERIFIED Performed By: #### 2 02656 #### [facility],[address] [place] [address] 19808 eGFR 39 ML/MINUTE Low 60 - 999 [facility] Comment on above: Performed By: #### 2 69826 #### [facility],[address] [place] [address] 07459 eGFR(AA) 47 ML/MINUTE Low 60 - 999 [facility] Comment on above: Result Comment: ACCO RDING TO THE NATIONAL KIDNEY DISEASE EDUCATION PROGRAM(NKDE), A NORMAL eGFR IS A VALUE GREATER THAN OR EQUAL TO 60 ML/MIN/1.73 SQ METERS. CHRONIC KIDNEY DISEASE: <60mL/MIN/1.73 SQ METERS KIDNEY FAILURE: <15mL/MIN/1.73 SQ METERS THIS TEST SHOULD ONLY BE USED FOR PATIENTS 18 YEARS OF AGE AND OLDER. Performed By: #### 2 19979 #### [facility],[address] [place] [address] 64955 Globulin (S) [Mass/Vol] 5.8 g/dL High 1.5 - 3.8 [facility] Comment on above: Performed By: #### 2 68510 #### [address] [address] Glucose [Mass/Vol] 101 mg/dL Normal 74 - 106 [facility] Comment on above: Performed By: #### 2 24580 #### [address] [address] Potassium [Moles/Vol] 3.4 mmol/L Low 3.5 - 5.1 [facility] Comment on above: Performed By: #### 2 43331 #### [facility],[address] [place] [address] Protein [Mass/Vol] 8.7 g/dL High 6.4 - 8.2 [facility] Comment on above: Performed By: #### 2 77257 #### [facility],[address] [place] [address] Sodium [Moles/Vol] 132 mmol/L Low 136 - 145 [facility] Comment on above: Performed By: #### 2 88931 #### [address] [address] Urea nitrogen [Mass/Vol] 29 mg/dL High 7 - 18 [facility] Comment on above: Performed By: #### 2 45015 #### [facility],[address] [place] [address]78 HEMOGLOBIN A1C (POM)on 10-15 Glucose [Mass/Vol] 131.2 mg/dL High 0.0 - 0.0 [facility] Comment on above: Result Comment: BLDo HEMOGLOBIN A1C REFERENCE RANGESBLDo Suggested Diagnosis HbA1c(%) HbA1C (mmol/mol Diabetic >/=6.5 >/=48 Prediabetes 5.7 - 6.4 39 - 47 Normal <5.7 <39 Performed By: #### 2 00845 #### [facility],[address] [place], [place] [address] HbA1c (Bld) [Mass fraction] 6.2 % Normal 0.0 - 6.5 [facility] Comment on above: Performed By: #### 2 31112 #### [facility],[address] [place] [address] LIPID PROFILEon 10-15-2024 Cholesterol [Mass/Vol] 88 mg/dL Normal 0 - 240 [facility] Comment on above: Performed By: #### 2 87604 #### [facility],[address] [place] [address] Cholesterol in HDL [Mass/Vol] 66 mg/dL High 40 - 60 [facility] Comment on above: Performed By: #### 2 22610 #### [facility],[address] [place] [address]25 Cholesterol in LDL [Mass/Vol] 8 mg/dL Normal 0 - 129 [facility] Comment on above: Performed By: #### 2 27984 #### [facility],[address] [place] [address] Cholesterol.total/C holesterol in HDL [Mass ratio] 1.3 {ratio} Normal 0.0 - 5.0 [facility] Comment on above: Performed By: #### 2 23740 #### [facility],[address] [place] [address] Lipid 1996 panel Normal [facility] Comment on above: Result Comment: LIPI D PROFILE Performed By: #### 2 57568 #### [facility],[address] [place] [address] Triglyceride [Mass/Vol] 72 mg/dL Normal 0 - 150 [facility] Comment on above: Performed By: #### 2 30040 #### [facility],[address] [place] [address]23 HALOPERIDOL [CCL]on 10-14-19 Haloperidol <0.6 Low 5.0-20.0 [facility] Comment on above: Result Comment: INTE RPRETIVE INFORMATION: Haloperidol Level Therapeutic Range: 5.0-20.0 ng/mL Toxic: Greater than 50 ng/mL The therapeutic range is based on serum pre-dose (trough) draw at steady-state concentration. Adverse effects may include drowsiness, blurred vision, tardive dyskinesia, tachycardia, hypotension and muscular rigidity. This test was developed and its performance characteristics determined by [facility]. It has not been cleared or approved by the [place] Food and Drug Administration. This test was performed in a CLIA certified laboratory and is intended for clinical purposes. Performed By: [facility] [address] [place] [address] Development Specialist: Willis Christine MD, PhD CLIA Number: [id number] [place] [address] Jaison Lema III, M.D. [id number] Performed By: #### 2 05431 #### [facility],[address] [place] [address]130 Basic metabolic 2000 panelon 10-12-2024 Anion gap [Moles/Vol] 7 mmol/L Normal 5-16 [facility] Comment on above: Order Comment: Speci men Type: BLOOD SPECIMEN Ordering Facility: [facility] Address: [address] [place] [address] Performed By: #### 4 5066-8 #### [facility] CLIA [id number] [employer] [place] [address] [place] Calcium [Mass/Vol] 9.4 mg/dL Normal 8.5-10.5 [facility] Comment on above: Order Comment: Speci men Type: BLOOD SPECIMEN Ordering Facility: [facility] Address: [address] [place] [address] Performed By: #### 4 5066-8 #### [facility] CLIA [id number] [address] [place] [address] [place] Chloride [Moles/Vol] 103 mmol/L Normal 98-107 [facility] Comment on above: Order Comment: Speci men Type: BLOOD SPECIMEN Ordering Facility: [facility] Address: [address] [place] [address] Performed By: #### 4 5066-8 #### [facility] CLIA [id number] [address] [place] [address] [place] CO2 [Moles/Vol] 24 mmol/L Normal 21-32 [facility] Comment on above: Order Comment: Speci men Type: BLOOD SPECIMEN Ordering Facility: [facility] Address: [address] [place] [address] Performed By: #### 4 5066-8 #### [facility] CLIA [id number] [address] [place] [address] [place] Creatinine [Mass/Vol] 0.83 mg/dL Normal 0.51-0.95 [facility] Comment on above: Order Comment: Speci men Type: BLOOD SPECIMEN Ordering Facility: [facility] Address: [address] [place] [address] Result Comment: Marissa ents receiving either N-Acetylcysteine (NAC) or Metamizole prior to venipuncture, may have falsely depressed results. Performed By: #### 4 5066-8 #### [facility] CLIA [id number] [address] [place] [address] [place] Creatinine and Glomerular filtration rate.predicted panel (S/P/Bld) 91 mL/min/1.73m??? Normal >=60 [facility] Comment on above: Order Comment: Speci men Type: BLOOD SPECIMEN Ordering Facility: [facility] Address: [address] [place] [address] Result Comment: Zeny mated Glomerular Filtration Rate [...] GFR. Performed By: #### 4 5066-8 #### [facility] CLIA [id number] [address] [place] [address] [place] Glucose [Mass/Vol] 99 mg/dL Normal 70-100 [facility] Comment on above: Order Comment: Dora finch Type: BLOOD SPECIMEN Ordering Facility: [facility] Address: [address] [place] [address] Result Comment: The [place] Diabetes Association (ADA) provides guidance for cutoff [...] Standards of Medical Care in Diabetes 2016, [place] [employer]. Diabetes Care. 2016.39(Suppl 1). Results may be falsely elevated after the administration of Sulfapyridine. Results may be falsely depressed after the administration of Sulfasalazine. Performed By: #### 4 5066-8 #### [facility] CLIA [id number] [address] [place] [address] [place] Potassium [Moles/Vol] 3.6 mmol/L Normal 3.5-5.1 [facility] Comment on above: Order Comment: Dora finch Type: BLOOD SPECIMEN Ordering Facility: [facility] Address: [address] [id number] Performed By: #### 4 5066-8 #### [facility] CLIA [id number] [address] [place] [address] [place] Sodium [Moles/Vol] 134 mmol/L Low 136-145 [facility] Comment on above: Order Comment: Speci men Type: BLOOD SPECIMEN Ordering Facility: [facility] Address: [address] [place] [address] Performed By: #### 4 5066-8 #### [facility] CLIA [id number] [address] [place] [address] [place] Urea nitrogen [Mass/Vol] 7 mg/dL Normal 7- [facility] Comment on above: Order Comment: Speci men Type: BLOOD SPECIMEN Ordering Facility: [facility] Address: [address] [place] [address] Performed By: #### 4 5066-8 #### [facility] CLIA [id number] [address] [place] [address] [place] CBC W Auto Differential pane l (Bld)on 10-12-2024 Basophils (Bld) [#/Vol] 0.05 10*3/uL Normal <0.11 [facility] Comment on above: Order Comment: Speci men Type: BLOOD SPECIMEN Ordering Facility: [facility] Address: [address] [place] [address] Performed By: #### 4 5066-8 #### [facility] CLIA [id number] [address] [place] [address] [place] Basophils/100 WBC (Bld) 0.7 % Normal [facility] Comment on above: Order Comment: Speci men Type: BLOOD SPECIMEN Ordering Facility: [facility] Address: [address] [place] [address] Performed By: #### 4 5066-8 #### [facility] CLIA [id number] [address] [place] [address] [place] Differential cell count method Nom (Bld) Auto Normal [facility] Comment on above: Order Comment: Speci men Type: BLOOD SPECIMEN Ordering Facility: [facility] Address: [address] [place] [address] Performed By: #### 4 5066-8 #### [facility] CLIA [id number] [address] [place] [address] [place] Eosinophils (Bld) [#/Vol] 0.14 10*3/uL Normal <0.46 [facility] Comment on above: Order Comment: Speci men Type: BLOOD SPECIMEN Ordering Facility: [facility] Address: [address] [place] [address] Performed By: #### 4 5066-8 #### [facility] CLIA [id number] [address] [place] [address] [place] Eosinophils/100 WBC (Bld) 1.9 % Normal [facility] Comment on above: Order Comment: Speci men Type: BLOOD SPECIMEN Ordering Facility: [facility] Address: [address] [place] [address] Performed By: #### 4 5066-8 #### [facility] CLIA [id number] [address] [place] [address] [place] Erythrocyte distribution width (RBC) [Ratio] 14.6 % Normal 11.5-15.0 [facility] Comment on above: Order Comment: Speci men Type: BLOOD SPECIMEN Ordering Facility: [facility] Address: [address] [place] [address] Performed By: #### 4 5066-8 #### [facility] CLIA [id number] [address] [place] [address] [place] Hematocrit (Bld) [Volume fraction] 33.2 % Low 36.0-46.0 [facility] Comment on above: Order Comment: Speci men Type: BLOOD SPECIMEN Ordering Facility: [facility] Address: [address] [place] [address] Performed By: #### 4 5066-8 #### [facility] CLIA [id number] [address] [place] [address] [place] Hemoglobin (Bld) [Mass/Vol] 10.1 g/dL Low 11.5-15.5 [facility] Comment on above: Order Comment: Speci men Type: BLOOD SPECIMEN Ordering Facility: [facility] Address: [address] [place] [address] Performed By: #### 4 5066-8 #### [facility] CLIA [id number] [address] [place] [address] [place] Immature granulocytes (Bld) [#/Vol] 0.04 10*3/uL Normal <0.10 [facility] Comment on above: Order Comment: Speci men Type: BLOOD SPECIMEN Ordering Facility: [facility] Address: [address] [place] [address] Performed By: #### 4 5066-8 #### [facility] CLIA [id number] [address] [place] [address] STATES [facility] Immature granulocytes/100 WBC (Bld) 0.5 % Normal [facility] Comment on above: Order Comment: Speci men Type: BLOOD SPECIMEN Ordering Facility: [facility] Address: [address] [place] [address] Performed By: #### 4 5066-8 #### [facility] CLIA [id number] [address] [place] [address] [place] Lymphocytes (Bld) [#/Vol] 2.84 10*3/uL Normal 1.00-4.00 [facility] Comment on above: Order Comment: Speci men Type: BLOOD SPECIMEN Ordering Facility: [facility] Address: [address] [place] [address] Performed By: #### 4 5066-8 #### [facility] CLIA [id number] [address] [place] [address] [place] Lymphocytes/100 WBC (Bld) 38.4 % Normal [facility] Comment on above: Order Comment: Speci men Type: BLOOD SPECIMEN Ordering Facility: [facility] Address: [address] [place] [address] Performed By: #### 4 5066-8 #### [facility] CLIA [id number] [address] [place] [address] [place] MCH (RBC) [Entitic mass] 24.1 pg Low 26.0-34.0 [facility] Comment on above: Order Comment: Speci men Type: BLOOD SPECIMEN Ordering Facility: [facility] Address: [address] [place] [address] Performed By: #### 4 5066-8 #### [facility] CLIA [id number] [address] [place] [address] [place] MCHC (RBC) [Mass/Vol] 30.4 g/dL Low 30.5-36.0 [facility] Comment on above: Order Comment: Speci men Type: BLOOD SPECIMEN Ordering Facility: [facility] Address: [address] [place] [address] Performed By: #### 4 5066-8 #### [facility] CLIA [id number] [address] [place] [address] [place] MCV (RBC) [Entitic vol] 79.2 fL Low 80.0-100.0 [facility] Comment on above: Order Comment: Speci men Type: BLOOD SPECIMEN Ordering Facility: [facility] Address: [address] [place] [address] Performed By: #### 4 5066-8 #### [facility] CLIA [id number] [address] [place] [address] [place] Monocytes (Bld) [#/Vol] 0.68 10*3/uL Normal <0.87 [facility] Comment on above: Order Comment: Speci men Type: BLOOD SPECIMEN Ordering Facility: [facility] Address: [address] [place] [address] Performed By: #### 4 5066-8 #### [facility] CLIA [id number] [address] [place] [address] Monocytes/100 WBC (Bld) 9.2 % Normal [facility] Comment on above: Order Comment: Speci men Type: BLOOD SPECIMEN Ordering Facility: [facility] Address: [address] [place] [address] Performed By: #### 4 5066-8 #### [facility] CLIA [id number] [address] [place] [address] [place] Neutrophils (Bld) [#/Vol] 3.65 10*3/uL Normal 1.45-7.50 [facility] Comment on above: Order Comment: Speci men Type: BLOOD SPECIMEN Ordering Facility: [facility] Address: [address] [place] [address] Performed By: #### 4 5066-8 #### [facility] CLIA [id number] [address] [place] [address] [place] Neutrophils/100 WBC (Bld) 49.3 % Normal [facility] Comment on above: Order Comment: Speci men Type: BLOOD SPECIMEN Ordering Facility: [facility] Address: [address] [place] [address] Performed By: #### 4 5066-8 #### [facility] CLIA [id number] [address] [place] [address] [place] Nucleated RBC (Bld) [#/Vol] 10*3/uL Normal <0.01 [facility] Comment on above: Order Comment: Speci men Type: BLOOD SPECIMEN Ordering Facility: [facility] Address: [address] [place] [address] Performed By: #### 4 5066-8 #### [facility] CLIA [id number] [address] [place] [address] [place] Nucleated RBC/100 WBC (Bld) [Ratio] 0.0 /100 WBC Normal [facility] Comment on above: Order Comment: Speci men Type: BLOOD SPECIMEN Ordering Facility: [facility] Address: [address] [place] [address] Performed By: #### 4 5066-8 #### [facility] CLIA [id number] [address] [place] [address] [place] Platelet mean volume (Bld) [Entitic vol] 8.9 fL Low 9.0-12.7 [facility] Comment on above: Order Comment: Speci men Type: BLOOD SPECIMEN Ordering Facility: [facility] Address: [address] [place], [place] [address] Performed By: #### 4 5066-8 #### [facility] CLIA [id number] [address] [place], [place] [address] [facility] [place] Platelets (Bld) [#/Vol] 344 10*3/uL Normal 150-400 [facility] Comment on above: Order Comment: Speci men Type: BLOOD SPECIMEN Ordering Facility: [facility] Address: [address] [place] [address] Performed By: #### 4 5066-8 #### [facility] CLIA [id number] [address] [place], [place] [address] [facility] [place] RBC (Bld) [#/Vol] 4.19 10*6/uL Normal 3.90-5.20 [facility] Comment on above: Order Comment: Speci men Type: BLOOD SPECIMEN Ordering Facility: [facility] Address: [address] [place], [place] [address] Performed By: #### 4 5066-8 #### [facility] CLIA [id number] [address] [place], [place] [address] [place] WBC (Bld) [#/Vol] 7.40 10*3/uL Normal 3.70-11.00 [facility] Comment on above: Order Comment: Speci men Type: BLOOD SPECIMEN Ordering Facility: [facility] Address: [address] [place] [address] Performed By: #### 4 5066-8 #### [facility] CLIA [id number] [address] [place], [place] [address] [facility] [place] CNDSon 10-12-2024 CNDS HNO ID: [id number] Author: DIANDRA MARTINEZ MD Service: General Internal [...] Lovenox, status post colostomy who presented to [facility] ED for accidental overdose. Patient resides in a nursing facility, approximately 1 month ago was taken to [facility] for colostomy after developing bowel obstruction. [...] PATIENT CONDITION AT DISCHARGE: Stable DISCHARGE DISPOSITION: Assisted Facility Physical Exam: General: Not in acute [...] escitalopram oxa (more content not included)... Normal [facility] Basic metabolic 2000 panelon 10-11-2024 Anion gap [Moles/Vol] 10 mmol/L Normal - [facility] Comment on above: Order Comment: Speci men Type: BLOOD SPECIMENOrdering Facility: [facility] Address: [address] [place], [place] [address] Performed By: #### 2 4321-2 ####[facility] [id number] [place] [address] [place] Calcium [Mass/Vol] 9.2 mg/dL Normal 8.5-10.5 [facility] Comment on above: Order Comment: Speci men Type: BLOOD SPECIMENOrdering Facility: [facility] Address: [address] [place] [address] Performed By: #### 2 4321-2 ####[facility] [id number] [place] [address] [place] Chloride [Moles/Vol] 101 mmol/L Normal 98-107 [facility] Comment on above: Order Comment: Speci men Type: BLOOD SPECIMENOrdering Facility: [facility] Address: [address] [place] [address] Performed By: #### 2 4321-2 ####[facility] [id number] [place] [address] [place] CO2 [Moles/Vol] 25 mmol/L Normal 21-32 [facility] Comment on above: Order Comment: Speci men Type: BLOOD SPECIMENOrdering Facility: [facility] Address: [address] [place] [address] Performed By: #### 2 4321-2 ####[facility] [id number] [place] [address] [place] Creatinine [Mass/Vol] 0.76 mg/dL Normal 0.51-0.95 [facility] Comment on above: Order Comment: Speci men Type: BLOOD SPECIMENOrdering Facility: [facility] Address: [address] [place] [address] Result Comment: Marissa ents receiving either N-Acetylcysteine (NAC) or Metamizole prior to venipuncture, may have falsely depressed results. Performed By: #### 2 4321-2 ####[facility] [id number] [place] [address] [place] Creatinine and Glomerular filtration rate.predicted panel (S/P/Bld) 101 mL/min/1.73m??? Normal >=60 [facility] Comment on above: Order Comment: Speci men Type: BLOOD SPECIMENOrdering Facility: [facility] Address: [address] [id number] Result Comment: Zeny mated Glomerular Filtration Rate [...] actual GFR. Performed By: #### 2 4321-2 ####[facility] [id number] [place] [address] [place] Glucose [Mass/Vol] 102 mg/dL High 70-100 [facility] Comment on above: Order Comment: Dora finch Type: BLOOD SPECIMENOrdering Facility: [facility] Address: [address] [place] [address] Result Comment: The [place] [employer] (ADA) provides guidance for cutoff [...] Standards of Medical Care in Diabetes 2016, [place] [employer]. Diabetes Care. 2016.39(Suppl 1). Results may be falsely elevated after the administration of Sulfapyridine. Results may be falsely depressed after the administration of Sulfasalazine. Performed By: #### 2 4321-2 ####[facility] [id number] [place] [address] [place] Potassium [Moles/Vol] 3.0 mmol/L Low 3.5-5.1 [facility] Comment on above: Order Comment: Dora finch Type: BLOOD SPECIMENOrdering Facility: [facility] Address: [address] [place] [address] Performed By: #### 2 4321-2 ####[facility] [id number] [place] [address] [place] Sodium [Moles/Vol] 136 mmol/L Normal 136-145 [facility] Comment on above: Order Comment: Speci men Type: BLOOD SPECIMENOrdering Facility: [facility] Address: [address] [place] [address] Performed By: #### 2 4321-2 ####[facility] [id number] [place] [address] [place] Urea nitrogen [Mass/Vol] 6 mg/dL Low 01-19 [facility] Comment on above: Order Comment: Speci men Type: BLOOD SPECIMENOrdering Facility: [facility] Address: [address] [place] [address] Performed By: #### 2 4321-2 ####[facility] [id number] [place] [address] [place] CBC W Auto Differential pane l (Bld)on 10-11-2024 Basophils (Bld) [#/Vol] 0.03 10*3/uL Normal <0.11 [facility] Comment on above: Order Comment: Speci men Type: BLOOD SPECIMENOrdering Facility: [facility] Address: [address] [place] [address] Performed By: #### 5 7021-8 ####[facility] [id number] [place] [address] [place] Basophils/100 WBC (Bld) 0.5 % Normal [facility] Comment on above: Order Comment: Speci men Type: BLOOD SPECIMENOrdering Facility: [facility] Address: [address] [place] [address] Performed By: #### 5 7021-8 ####[facility] [id number] [place] [id number] [place] Differential cell count method Nom (Bld) Auto Normal [facility] Comment on above: Order Comment: Speci men Type: BLOOD SPECIMENOrdering Facility: [facility] Address: [address] [place] [address] Performed By: #### 5 7021-8 ####[facility] [id number] [address] [place] Eosinophils (Bld) [#/Vol] 0.09 10*3/uL Normal <0.46 [facility] Comment on above: Order Comment: Speci men Type: BLOOD SPECIMENOrdering Facility: [facility] Address: [address] [place] [address] Performed By: #### 5 7021-8 ####[facility] [id number] [address] [place] Eosinophils/100 WBC (Bld) 1.5 % Normal [facility] Comment on above: Order Comment: Speci men Type: BLOOD SPECIMENOrdering Facility: [facility] Address: [address] [place] [address] Performed By: #### 5 7021-8 ####[facility] [facility]ATORYCLIA [id number] [address] [place] Erythrocyte distribution width (RBC) [Ratio] 14.8 % Normal 11.5-15.0 [facility] Comment on above: Order Comment: Speci men Type: BLOOD SPECIMENOrdering Facility: [facility] Address: [address] [place] [address] Performed By: #### 5 7021-8 ####[facility]ATORYCLIA [id number] [address] [place] Hematocrit (Bld) [Volume fraction] 29.6 % Low 36.0-46.0 [facility] Comment on above: Order Comment: Speci men Type: BLOOD SPECIMENOrdering Facility: [facility] Address: [address] [place] [address] Performed By: #### 5 7021-8 ####[facility] LABORATORYCLIA [id number] [place] [address] [place] Hemoglobin (Bld) [Mass/Vol] 9.2 g/dL Low 11.5-15.5 [facility] Comment on above: Order Comment: Speci men Type: BLOOD SPECIMENOrdering Facility: [facility] Address: [address] [place] [address] Performed By: #### 5 7021-8 ####[facility] LABORATORYCLIA [id number] [place] [id number] [place] Immature granulocytes (Bld) [#/Vol] 0.03 10*3/uL Normal <0.10 [facility] Comment on above: Order Comment: Speci men Type: BLOOD SPECIMENOrdering Facility: [facility] Address: [address] [place] [address] Performed By: #### 5 7021-8 ####[facility] LABORATORYCLIA [id number] [place] [address] [place] Immature granulocytes/100 WBC (Bld) 0.5 % Normal [facility] Comment on above: Order Comment: Speci men Type: BLOOD SPECIMENOrdering Facility: [facility] Address: [address] [place] [address] Performed By: #### 5 7021-8 ####[facility]ORATORYCLIA [id number] [place] [address] [place] Lymphocytes (Bld) [#/Vol] 1.59 10*3/uL Normal 1.00-4.00 [facility] Comment on above: Order Comment: Speci men Type: BLOOD SPECIMENOrdering Facility: [facility] Address: [address] [place] [address] Performed By: #### 5 7021-8 ####[facility] LABORATORYCLIA [id number] [place] [address] [place] Lymphocytes/100 WBC (Bld) 27.2 % Normal [facility] Comment on above: Order Comment: Speci men Type: BLOOD SPECIMENOrdering Facility: [facility] Address: [address] [place] [address] Performed By: #### 5 7021-8 ####[facility] LABORATORYCLIA [id number] [place] [address] [place] MCH (RBC) [Entitic mass] 24.2 pg Low 26.0-34.0 [facility] Comment on above: Order Comment: Speci men Type: BLOOD SPECIMENOrdering Facility: [facility] Address: [address] [place] [address] Performed By: #### 5 7021-8 ####[facility]ORATORYCLIA [id number] [place] [address] [place] MCHC (RBC) [Mass/Vol] 31.1 g/dL Normal 30.5-36.0 [facility] Comment on above: Order Comment: Speci men Type: BLOOD SPECIMENOrdering Facility: [facility] Address: [address] [place] [address] Performed By: #### 5 7021-8 ####[facility] LABORATORYCLIA [id number] [address] STATES OF [facility] MCV (RBC) [Entitic vol] 77.9 fL Low 80.0-100.0 [facility] Comment on above: Order Comment: Speci men Type: BLOOD SPECIMENOrdering Facility: [facility] Address: [address] [place] [address] Performed By: #### 5 7021-8 ####[facility] LABORATORYCLIA [id number] [address] [place] Monocytes (Bld) [#/Vol] 0.62 10*3/uL Normal <0.87 [facility] Comment on above: Order Comment: Speci men Type: BLOOD SPECIMENOrdering Facility: [facility] Address: [address] [place] [address] Performed By: #### 5 7021-8 ####[facility] LABORATORYCLIA [id number] [address] [place] Monocytes/100 WBC (Bld) 10.6 % Normal [facility] Comment on above: Order Comment: Speci men Type: BLOOD SPECIMENOrdering Facility: [facility] Address: [address] [place] [address] Performed By: #### 5 7021-8 ####[facility] LABORATORYCLIA [id number] [place] [address] [place] Neutrophils (Bld) [#/Vol] 3.48 10*3/uL Normal 1.45-7.50 [facility] Comment on above: Order Comment: Speci men Type: BLOOD SPECIMENOrdering Facility: [facility] Address: [address] [place] [address] Performed By: #### 5 7021-8 ####[facility]ORATORYCLIA [id number] [place] [address] [place] Neutrophils/100 WBC (Bld) 59.7 % Normal [facility] Comment on above: Order Comment: Speci men Type: BLOOD SPECIMENOrdering Facility: [facility] Address: [address] [place] [address] Performed By: #### 5 7021-8 ####[facility]ORATORYCLIA [id number] [place] [address] [place] Nucleated RBC (Bld) [#/Vol] 10*3/uL Normal <0.01 [facility] Comment on above: Order Comment: Speci men Type: BLOOD SPECIMENOrdering Facility: [facility] Address: [address] [place] [address] Performed By: #### 5 7021-8 ####[facility]ORATORYCLIA [id number] [place] [address] [place] Nucleated RBC/100 WBC (Bld) [Ratio] 0.0 /100 WBC Normal [facility] Comment on above: Order Comment: Speci men Type: BLOOD SPECIMENOrdering Facility: [facility] Address: [address] [place] [address] Performed By: #### 5 7021-8 ####[facility] LABORATORYCLIA [id number] [place] [address] [place] Platelet mean volume (Bld) [Entitic vol] 9.3 fL Normal 9.0-12.7 [facility] Comment on above: Order Comment: Speci men Type: BLOOD SPECIMENOrdering Facility: [facility] Address: [address] [place] [address] Performed By: #### 5 7021-8 ####[facility] LABORATORYCLIA [id number] [place] [address] [facility] [place] Platelets (Bld) [#/Vol] 362 10*3/uL Normal 150-400 [facility] Comment on above: Order Comment: Speci men Type: BLOOD SPECIMENOrdering Facility: [facility] Address: [address] [place] [address] Performed By: #### 5 7021-8 ####[facility]ORATORYCLIA [id number] [address] RBC (Bld) [#/Vol] 3.80 10*6/uL Low 3.90-5.20 [facility] Comment on above: Order Comment: Speci men Type: BLOOD SPECIMENOrdering Facility: [facility] Address: [address] [place] [address] Performed By: #### 5 7021-8 ####[facility]ORATORYCLIA [id number] [address] WBC (Bld) [#/Vol] 5.84 10*3/uL Normal 3.70-11.00 [facility] Comment on above: Order Comment: Speci men Type: BLOOD SPECIMENOrdering Facility: [facility] Address: [address] [place] [address] Performed By: #### 5 7021-8 ####[facility]ORATORYCLIA [id number] [place] [address] [facility] ALLIED HEALTHon 10-10-2024 ALLIED HEALTH HNO ID: [id number] Author: SANG CASE, NATHANAEL Service: Wound/Ostomy Author [...] is using betadine for the toes/heel. RECOMMENDATIONS: rate manager Communication Order; Dressing recommendations require a provider's order, please obtain and place as a Dressing Care order. Right and left toe and Left Heel eschar. Eros with betadine daily. If you notice drainage anywhere, apply silver alginate and gauze-change daily. Maintain pressure prevention interventions-offload heels with pillows or Truevue boots.. Re-consult Wound Care if skin or wounds deteriorate further or if new problems arise. [facility] ALLIED HEALTH HNO ID: [id number] Author: SANG CASE, RN Service: Wound/Ostomy Author Type: Registered Nurse [...] sting skin prep pad. Apply Augustine paste #08660 into any creases at 3 and 9 o'clock. Apply Augustine #8815 adapt ring around the stoma. Apply pouching system: Pouching System: There are 2 pouches for the patient to try 1) #16357 Sensura Newport 2 piece Flex High Output ostomy pouch with soft outlet-included a clip in case the drainage is too thick for the outlet. In this case, just cut off the spout and use a clip to secure/empty. #89221 Convex light ostomy 2 piece flex with belt tabs 2) can also try #67138 JERONIMO Ultramax cut to fit large deep convex pouch Wear Time Goal: 3-4 days If additional ostomy supplies are needed, please call [employer] ([phone]) for above mentioned supplies. If supplies are unavailable in [employer], please secure chat [facility] Wound Care Nurses or call extension [phone] to request more supplies. Normal [facility] Basic metabolic 2000 panelon 10-10-2024 Anion gap [Moles/Vol] 9 mmol/L Normal 5-16 [facility] Comment on above: Order Comment: Speci men Type: BLOOD SPECIMEN [facility] Address: [address] [place] [address] Performed By: #### 2 4321-2 #### [facility] CLIA [id number] [address] [place] [address] [place] Calcium [Mass/Vol] 9.2 mg/dL Normal 8.5-10.5 [facility] Comment on above: Order Comment: Speci men Type: BLOOD SPECIMEN [facility] Address: [address] [place] [address] Performed By: #### 2 4321-2 #### [facility] CLIA [id number] [address] [place] [address] [place] Chloride [Moles/Vol] 99 mmol/L Normal 98-107 [facility] Comment on above: Order Comment: Speci men Type: BLOOD SPECIMEN [facility] Address: [address] [place] [address] Performed By: #### 2 4321-2 #### [facility] CLIA [id number] [address] [place] [address] [place] CO2 [Moles/Vol] 22 mmol/L Normal 21-32 [facility] Comment on above: Order Comment: Speci men Type: BLOOD SPECIMEN [facility] Address: [address] [place] [address] Performed By: #### 2 4321-2 #### [facility] CLIA [id number] [address] [place] [address] [place] Creatinine [Mass/Vol] 0.76 mg/dL Normal 0.51-0.95 [facility] Comment on above: Order Comment: Speci men Type: BLOOD SPECIMEN [facility] Address: [address] [place] [id number] Result Comment: Marissa ents receiving either N-Acetylcysteine (NAC) or Metamizole prior to venipuncture, may have falsely depressed results. Performed By: #### 2 4321-2 #### [facility] CLIA [id number] [address] [place] [address] [place] Creatinine and Glomerular filtration rate.predicted panel (S/P/Bld) 101 mL/min/1.73m??? Normal >=60 [facility] Comment on above: Order Comment: Dora finch Type: BLOOD SPECIMEN [facility] Address: [address] [place] [address] Result Comment: Zeny mated Glomerular Filtration Rate [...] GFR. Performed By: #### 2 4321-2 #### [facility] CLIA [id number] [address] [place] [address] [place] Glucose [Mass/Vol] 88 mg/dL Normal 70-100 [facility] Comment on above: Order Comment: Dora finch Type: BLOOD SPECIMEN [facility] Address: [address] [place] [id number] Result Comment: The [place] [employer] (ADA) provides guidance for cutoff [...] Standards of Medical Care in Diabetes 2016, [place] [employer]. Diabetes Care. 2016.39(Suppl 1). Results may be falsely elevated after the administration of Sulfapyridine. Results may be falsely depressed after the administration of Sulfasalazine. Performed By: #### 2 4321-2 #### [facility] CLIA [id number] [address] [place] [address] [place] Potassium [Moles/Vol] 3.4 mmol/L Low 3.5-5.1 [facility] Comment on above: Order Comment: Speci men Type: BLOOD SPECIMEN [facility] Address: [address] [place] [address] Performed By: #### 2 4321-2 #### [facility] CLIA [id number] [address] [place] [address] [place] Sodium [Moles/Vol] 130 mmol/L Low 136-145 [facility] Comment on above: Order Comment: Speci men Type: BLOOD SPECIMEN [facility] Address: [address] [place] [address] Performed By: #### 2 4321-2 #### [facility] CLIA [id number] [address] [place] [address] [place] Urea nitrogen [Mass/Vol] 9 mg/dL Normal 7-26 [facility] Comment on above: Order Comment: Speci men Type: BLOOD SPECIMEN [facility] Address: [address] [place] [address] Performed By: #### 2 4321-2 #### [facility] CLIA [id number] [address] [place] [address] [place] CBC W Auto Differential pane l (Bld)on 10-10-2024 Basophils (Bld) [#/Vol] 0.05 10*3/uL Normal <0.11 [facility] Comment on above: Order Comment: Speci men Type: BLOOD SPECIMEN [facility] Address: [address] [place] [address] Performed By: #### 5 7021-8 #### [facility] CLIA [id number] [address] [place] [address] [place] Basophils/100 WBC (Bld) 0.7 % Normal [facility] Comment on above: Order Comment: Speci men Type: BLOOD SPECIMEN [facility] Address: [address] [place] [address] Performed By: #### 5 7021-8 #### [facility] CLIA [id number] [address] [place] [address] [place] Differential cell count method Nom (Bld) Auto Normal [facility] Comment on above: Order Comment: Speci men Type: BLOOD SPECIMEN [facility] Address: [address] [place] [address] Performed By: #### 5 7021-8 #### [facility] CLIA [id number] [address] [place] [address] [place] Eosinophils (Bld) [#/Vol] 0.07 10*3/uL Normal <0.46 [facility] Comment on above: Order Comment: Speci men Type: BLOOD SPECIMEN [facility] Address: [address] [place] [address] Performed By: #### 5 7021-8 #### [facility] CLIA [id number] [address] [place] [address] [place] Eosinophils/100 WBC (Bld) 1.0 % Normal [facility] Comment on above: Order Comment: Speci men Type: BLOOD SPECIMEN [facility] Address: [address] [place] [address] Performed By: #### 5 7021-8 #### [facility] CLIA [id number] [address] [place] [address] [place] Erythrocyte distribution width (RBC) [Ratio] 14.9 % Normal 11.5-15.0 [facility] Comment on above: Order Comment: Speci men Type: BLOOD SPECIMEN [facility] Address: [address] [place] [address] Performed By: #### 5 7021-8 #### [facility] CLIA [id number] [address] [place] [address] [place] Hematocrit (Bld) [Volume fraction] 33.3 % Low 36.0-46.0 [facility] Comment on above: Order Comment: Speci men Type: BLOOD SPECIMEN [facility] Address: [address] [place] [address] Performed By: #### 5 7021-8 #### [facility] CLIA [id number] [address] [place] [address] [place] Hemoglobin (Bld) [Mass/Vol] 10.4 g/dL Low 11.5-15.5 [facility] Comment on above: Order Comment: Speci men Type: BLOOD SPECIMEN [facility] Address: [address] [place] [address] Performed By: #### 5 7021-8 #### [facility] CLIA [id number] [address] [place] [address] [place] Immature granulocytes (Bld) [#/Vol] 10*3/uL Normal <0.10 [facility] Comment on above: Order Comment: Speci men Type: BLOOD SPECIMEN [facility] Address: [address] [place] [address] Performed By: #### 5 7021-8 #### [facility] CLIA [id number] [address] [place] [address] [place] Immature granulocytes/100 WBC (Bld) 0.3 % Normal [facility] Comment on above: Order Comment: Speci men Type: BLOOD SPECIMEN [facility] Address: [address] [place] [address] Performed By: #### 5 7021-8 #### [facility] CLIA [id number] [address] [place] [address] [place] Lymphocytes (Bld) [#/Vol] 2.17 10*3/uL Normal 1.00-4.00 [facility] Comment on above: Order Comment: Speci men Type: BLOOD SPECIMEN [facility] Address: [address] [place] [address] Performed By: #### 5 7021-8 #### [facility] CLIA [id number] [address] [place] [address] [place] Lymphocytes/100 WBC (Bld) 30.6 % Normal [facility] Comment on above: Order Comment: Speci men Type: BLOOD SPECIMEN [facility] Address: [address] [place] [address] Performed By: #### 5 7021-8 #### [facility] CLIA [id number] [address] [place] [address] [place] MCH (RBC) [Entitic mass] 24.3 pg Low 26.0-34.0 [facility] Comment on above: Order Comment: Speci men Type: BLOOD SPECIMEN [facility] Address: [address] [place] [address] Performed By: #### 5 7021-8 #### [facility] CLIA [id number] [address] [place] [address] [place] MCHC (RBC) [Mass/Vol] 31.2 g/dL Normal 30.5-36.0 [facility] Comment on above: Order Comment: Speci men Type: BLOOD SPECIMEN [facility] Address: [address] [place] [address] Performed By: #### 5 7021-8 #### [facility] CLIA [id number] [address] [place] [address] [place] MCV (RBC) [Entitic vol] 77.8 fL Low 80.0-100.0 [facility] Comment on above: Order Comment: Speci men Type: BLOOD SPECIMEN [facility] Address: [address] [place] [address] Performed By: #### 5 7021-8 #### [facility] CLIA [id number] [address] [place] [address] [place] Monocytes (Bld) [#/Vol] 0.77 10*3/uL Normal <0.87 [facility] Comment on above: Order Comment: Speci men Type: BLOOD SPECIMEN [facility] Address: [address] [place] [address] Performed By: #### 5 7021-8 #### [facility] CLIA [id number] [address] [place] [address] [place] Monocytes/100 WBC (Bld) 10.9 % Normal [facility] Comment on above: Order Comment: Speci men Type: BLOOD SPECIMEN [facility] Address: [address] [place] [address] Performed By: #### 5 7021-8 #### [facility] CLIA [id number] [address] [place] [address] [place] Neutrophils (Bld) [#/Vol] 4.01 10*3/uL Normal 1.45-7.50 [facility] Comment on above: Order Comment: Speci men Type: BLOOD SPECIMEN [facility] Address: [address] [place] [address] Performed By: #### 5 7021-8 #### [facility] CLIA [id number] [address] [place] [address] [place] Neutrophils/100 WBC (Bld) 56.5 % Normal [facility] Comment on above: Order Comment: Speci men Type: BLOOD SPECIMEN [facility] Address: [address] [place] [address] Performed By: #### 5 7021-8 #### [facility] CLIA [id number] [address] [place] [address] [place] Nucleated RBC (Bld) [#/Vol] 10*3/uL Normal <0.01 [facility] Comment on above: Order Comment: Speci men Type: BLOOD SPECIMEN [facility] Address: [address] [place] [address] Performed By: #### 5 7021-8 #### [facility] CLIA [id number] [address] [place] [address] [place] Nucleated RBC/100 WBC (Bld) [Ratio] 0.0 /100 WBC Normal [facility] Comment on above: Order Comment: Speci men Type: BLOOD SPECIMEN [facility] Address: [address] [place] [address] Performed By: #### 5 7021-8 #### [facility] CLIA [id number] [address] [place] [address] [place] Platelet mean volume (Bld) [Entitic vol] 8.8 fL Low 9.0-12.7 [facility] Comment on above: Order Comment: Speci men Type: BLOOD SPECIMEN [facility] Address: [address] [place] [address] Performed By: #### 5 7021-8 #### [facility] CLIA [id number] [address] [place] [address] [place] Platelets (Bld) [#/Vol] 380 10*3/uL Normal 150-400 [facility] Comment on above: Order Comment: Speci men Type: BLOOD SPECIMEN [facility] Address: [address] [place] [address] Performed By: #### 5 7021-8 #### [facility] CLIA [id number] [address] [place] [address] [place] RBC (Bld) [#/Vol] 4.28 10*6/uL Normal 3.90-5.20 [facility] Comment on above: Order Comment: Speci men Type: BLOOD SPECIMEN [facility] Address: [address] [place] [address] Performed By: #### 5 7021-8 #### [facility] CLIA [id number] [address] [place] [address] [place] WBC (Bld) [#/Vol] 7.09 10*3/uL Normal 3.70-11.00 [facility] Comment on above: Order Comment: Speci men Type: BLOOD SPECIMEN [facility] Address: [address] [place] [address] [place] [address] Performed By: #### 5 7021-8 #### [facility] CLIA [id number] [address] [place] [address] [facility] CONSULTon 10-10-2024 CONSULT HNO ID: [id number] Author: RAKESH DAVIS APRN.CNP Service: Gastroenterology Author [...] decrease to once daily until seen by public relations player as an outpatient. Once her anticoagulation can [...] extremity lateral fasciotomy closures 08/23/2024, presented to [facility] 10/09 as a transfer from [facility] for accidental overdose. Patient with noted recent [...] Narcan x2 doses. Patient was taken to [facility] ED and transferred to [facility] for GI evaluation. The patient is sitting [...] state on Loven (more content not included)... [facility] CONSULT PROGon 10-10-2024 CONSULT PROG HNO ID: [id number] Author: FREDRICK PERALTA [facility] Service: Pharmacy Author Type: Pharmacist Type: Consult [...] contact pharmacy if there are questions. Fredrick Perlata [facility] NUTRITIONon 10-10-2024 NUTRITION HNO ID: [id number] Author: KENYA SANTAMARIA RD Service: Nutrition Therapy [...] Weight Type: Current weight Estimated kilocalorie needs: 5952-5137 Calorie Calculation Method: 20-25 kcals/kg Estimated protein [...] October 10, 2024 TIME: 2:23 PM Normal [facility] APTTon 10-09-2024 aPTT Coag (Bld) [Time] 30.8 s Normal 25.4 - 38.4 [facility] Comment on above: Performed By: #### 2 48564 #### [place] [address] CBC + DIFFon 10-09-2024 Baso # 0.06 x10EE3/UL Normal 0.00 - 0.10 [facility] Comment on above: Performed By: #### 2 93594 #### [address] [address] Basophils/100 WBC (Bld) 0.4 % Normal 0.0 - 2.0 [facility] Comment on above: Performed By: #### 2 17871 #### [address] [address] CBC + DIFF Normal [facility] Comment on above: Result Comment: CBC- COMPLETE BLOOD COUNT Performed By: #### 2 65935 #### [address] [address] EO # 0.11 x10EE3/UL Normal 0.00 - 0.50 [facility] Comment on above: Performed By: #### 2 82186 #### [address] [address] Eosinophils/100 WBC (Bld) 0.6 % Normal 0.0 - 7.0 [facility] Comment on above: Performed By: #### 2 86933 #### [facility],[address] [place], [place] [address] Erythrocyte distribution width (RBC) [Ratio] 16.5 % High 12.0 - 15.6 [facility] Comment on above: Performed By: #### 2 09483 #### [facility],[address] [place] [address] Hematocrit (Bld) [Volume fraction] 37.0 % Normal 34.0 - 46.0 [facility] Comment on above: Performed By: #### 2 03159 #### [facility],[address] [place] [address] Hemoglobin (Bld) [Mass/Vol] 12.3 g/dL Normal 12.0 - 16.0 [facility] Comment on above: Performed By: #### 2 89924 #### [facility],[address] [place], [place] [address] Lymph # 3.19 x10EE3/UL High 0.80 - 2.80 [facility] Comment on above: Performed By: #### 2 89168 #### [facility],[address] [place], [place] [address] Lymphocytes/100 WBC (Bld) 18.0 % Low 20.0 - 45.0 [facility] Comment on above: Performed By: #### 2 95079 #### [facility],[address] [place] [address] MANUAL DIFF N/A Normal [facility] Comment on above: Performed By: #### 2 26332 #### [facility],[address] [place] [address] MCH (RBC) [Entitic mass] 25 pg Low 27 - 33 [facility] Comment on above: Performed By: #### 2 33584 #### [facility],[address] [place] [address] MCHC 33 X10 3 Normal 32 - 36 [facility] Comment on above: Performed By: #### 2 45753 #### [facility],[address] [place], [place] [address] MCV (RBC) [Entitic vol] 76 fL Low 80 - 99 [facility] Comment on above: Performed By: #### 2 55235 #### [facility],[address] [place] [address] Lea # 1.03 x10EE3/UL High 0.20 - 1.00 [facility] Comment on above: Performed By: #### 2 12454 #### [facility],[address] [place] [address] MONOS % 5.8 % Normal 0.0 - 10.0 [facility] Comment on above: Performed By: #### 2 18064 #### [facility],[address] [place] [address] Morphology Stan (Bld) [Interp] N/A Normal [facility] Comment on above: Performed By: #### 2 50956 #### [facility],[address] [place] [address] Neut # 13.36 x10EE3/UL High 1.50 - 7.10 [facility] Comment on above: Performed By: #### 2 80633 #### [facility],[address] [place] [address] Neutrophils/100 WBC (Bld) 75.2 % Normal 46.0 - 76.0 [facility] Comment on above: Performed By: #### 2 87481 #### [facility],[address] [place] [address] PLATELET 657 x10EE3/UL High 150 - 450 [facility] Comment on above: Performed By: #### 2 95726 #### [facility],[address] [place] [address] Platelet mean volume (Bld) [Entitic vol] 7.7 fL Normal 6.6 - 10.5 [facility] Comment on above: Result Comment: AUTO MATED DIFFERENTIAL Performed By: #### 2 33825 #### [facility],[address] [place] [address] RBC 4.85 x 10EE6/UL Normal 4.10 - 5.30 [facility] Comment on above: Performed By: #### 2 95983 #### [facility],[address] [place] [address] WBC 17.8 x 10EE3/UL High 4.5 - 10.8 [facility] Comment on above: Performed By: #### 2 07466 #### [facility],[address] [place] [address] CMP with eGFRon 10-09-2024 AGE 39 years Normal [facility] Comment on above: Performed By: #### 2 98555 #### [facility],[address] [place] [address] Albumin [Mass/Vol] 3.1 g/dL Low 3.4 - 5.0 [facility] Comment on above: Performed By: #### 2 90334 #### [facility],[address] [place] [address] Albumin/Globulin [Mass ratio] 0.5 {ratio} Low 0.9 - 1.6 [facility] Comment on above: Performed By: #### 2 37543 #### [facility],[address] [place] [address]497 ALK PHOS 175 U/L High 46 - 116 [facility] Comment on above: Performed By: #### 2 02142 #### [facility],[address] [place] [address] ALT [Catalytic activity/Vol] 65 U/L High 16 - 63 [facility] Comment on above: Performed By: #### 2 56523 #### [facility],[address] [place] [address] Anion gap [Moles/Vol] 18 mmol/L Normal 10 - 20 [facility] Comment on above: Performed By: #### 2 01280 #### [facility],[address] [place] [address] 22412 AST [Catalytic activity/Vol] 23 U/L Normal 13 - 39 [facility] Comment on above: Performed By: #### 2 24479 #### [facility],[address] [place] [address] B/C RATIO 12 ratio Normal 0 - 30 [facility] Comment on above: Performed By: #### 2 70412 #### [facility],[address] [place] [address] Bilirubin [Mass/Vol] 0.7 mg/dL Normal 0.2 - 1.0 [facility] Comment on above: Performed By: #### 2 24109 #### [facility],[address] [place] [address] Calcium [Mass/Vol] 9.7 mg/dL Normal 8.5 - 10.1 [facility] Comment on above: Performed By: #### 2 10091 #### [facility],[address] [place] [address] Chloride [Moles/Vol] 94 mmol/L Low 98 - 107 [facility] Comment on above: Performed By: #### 2 81167 #### [facility],[address] [place] [address]44 CMP with eGFR Normal [facility] Comment on above: Result Comment: COMP REHENSIVE METABOLIC PANEL Performed By: #### 2 96866 #### [facility],[address] [place] [address] CO2 [Moles/Vol] 25.4 mmol/L Normal 21.0 - 32.0 [facility] Comment on above: Performed By: #### 2 52582 #### [facility],[address] [place] [address] Creatinine [Mass/Vol] 1.72 mg/dL High 0.55 - 1.02 [facility] Comment on above: Performed By: #### 2 81291 #### [facility],[address] [place] [address] 74691 eGFR 33 ML/MINUTE Low 60 - 999 [facility] Comment on above: Performed By: #### 2 79482 #### [facility],[address] [place] [address]011 eGFR(AA) 40 ML/MINUTE Low 60 - 999 [facility] Comment on above: Result Comment: ACCO RDING TO THE NATIONAL KIDNEY DISEASE EDUCATION PROGRAM(NKDE), A NORMAL eGFR IS A VALUE GREATER THAN OR EQUAL TO 60 ML/MIN/1.73 SQ METERS. CHRONIC KIDNEY DISEASE: <60mL/MIN/1.73 SQ METERS KIDNEY FAILURE: <15mL/MIN/1.73 SQ METERS THIS TEST SHOULD ONLY BE USED FOR PATIENTS 18 YEARS OF AGE AND OLDER. Performed By: #### 2 85005 #### [facility],[address] [place] [address] Globulin (S) [Mass/Vol] 6.6 g/dL High 1.5 - 3.8 [facility] Comment on above: Performed By: #### 2 54644 #### [facility],[address] [place] [address] Glucose [Mass/Vol] 245 mg/dL High 74 - 106 [facility] Comment on above: Performed By: #### 2 11220 #### [facility],[address] [place] [address] Potassium [Moles/Vol] 2.3 mmol/L Critically low 3.5 - 5.1 [facility] Comment on above: Result Comment: { CA LLED TO NATHANAEL REDMOND BY [facility] @ 0937 { READ BACK BY NATHANAEL REDMOND RA 0937 Performed By: #### 2 61537 #### [facility],[address] [place] [address] Protein [Mass/Vol] 9.7 g/dL High 6.4 - 8.2 [facility] Comment on above: Performed By: #### 2 35924 #### [facility],[address] [place] [address] Sodium [Moles/Vol] 135 mmol/L Low 136 - 145 [facility] Comment on above: Performed By: #### 2 07197 #### [facility],[address] [place] [address] Urea nitrogen [Mass/Vol] 21 mg/dL High 7 - 18 [facility] Comment on above: Performed By: #### 2 80840 #### [facility],[address] [place] [address] CONSULT PROGon 10-09-2024 CONSULT PROG HNO ID: [id number] Author: MORENA HAWKINS RPh Service: Pharmacy Author [...] 2040 11.1 08/22/20242024 12.7 Morena Hawkins RPh [facility] CT ABDOMEN/PELVIS WO 10-09 CT ABDOMEN/PELVIS WO [place] [address] Patient: DALY EVANS Phone#: : 1985 Age: 39 Gender: F Pt. Type: ER Account: [id number] Location: [facility] Ordering: FARZANEH AVILEZ Exam Date: 10/09/2024/10:19 Family Phys: MAGGIE PUTNAM Charge Code: 088811 Physician: [place] Order #: [id number] Dose#: 13.40 mGy PROCEDURE: CT ABDOMEN/PELVIS WITHOUT CONTRAST COMPARISON: [facility], CT, ABDOMEN/PELVIS W CON, 09/17/2024, [...] 39 Gender: F Pt. Type: ER Account: [id number] Location: [facility] Ordering: FARZANEH AVILEZ Exam Date: 10/09/2024/10:19 Family Phys: MAGGIE INDY Charge Code: 555954 Physician: [place] Order #: [id number] Dose#: 13.40 mGy 2. No appreciable acute intra-abdominal or pelvic abnormality within the limits of a noncontrast exam. Dictated by: Alicia Maya MD on 10/09/2024 at 10:49 Approved by: Alicia Maya MD on 10/09/2024 at 10:57 Normal [facility] Creatinine + eGFR Pnl SerPlB ldon 10-09-2024 Creatinine and Glomerular filtration rate.predicted panel (S/P/Bld) 74 mL/min/1.73m??? Normal >=60 [facility] Comment on above: Order Comment: Dora finch Type: BLOOD SPECIMEN Ordering Facility: [facility] Address: [address] [place] [address] Result Comment: Zeny mated Glomerular Filtration Rate [...] GFR. Performed By: #### 4 5066-8 #### [facility] CLIA [id number] [address] [place] [address] [place] Creatinine and Glomerular fi ltration rate.predicted panel (S/P/Bld)on 10-09-2024 Creatinine [Mass/Vol] 0.99 mg/dL High 0.51-0.95 [facility] Comment on above: Order Comment: Dora finch Type: BLOOD SPECIMEN Ordering Facility: [facility] Address: [address] [place] [address] Result Comment: Marissa ents receiving either N-Acetylcysteine (NAC) or Metamizole prior to venipuncture, may have falsely depressed results. Performed By: #### 4 5066-8 #### [facility] CLIA [id number] [address] [place] [address] [place] ED MED ADMINISTRATION DETAIL on 10-09-2024 ED MED ADMINISTRATION DETAIL Ceramic Chemist Medication Administration Record [address] [address] [id number] 10/09/2024 Patient: DALY EVANS Sex: Female : 1985 Age: 39y MEASUREMENTS: Wt: 90.7 kg, Ht/Jean-Paul: 67.0 in, BMI: 31.32 ALLERGIES: [place] Medication Ordered Medication Administration Date/Time Zofran IVP [...] 10:31 Ariella Santamaria R.N. 1 of 4 [facility] Chemist Medication Ordered Medication Administration Date/Time Reglan IVP [...] confirmed 5 rights. Via IV pump. Ariella Santamaria, R.N. diluted in sodium IV patency established. IV site checked: no pain, redness, or Stopped chloride IVPB 0.9 % swelling. IV flushed thoroughly pre-medication administration. 13:10/09/2024 100 mL (NOW x1) Information reviewed with patient including reason for taking this Ariella Santamaria, R.N. medication. - 12:24 Ariella Santamaria, R.N. Not Scanned 13:10/09 Medication Discontinued: IV [...] 13:35 Ariella Santamaria R.N. 2 of 4 Ceramic Chemist Medication Ordered Medication Administration Date/Time Haloperidol IVP [...] 13:29 Johnathan (more content not included)... Normal [facility] ED NURSES CLINICAL NOTEon ED NURSES CLINICAL NOTE Nurse Narrative Nurse Clinical Narrative [address] [address] [id number] 10/09/2024 08:13:00 Patient: DALY EVANS Sex: Female : 1985 Age: 39y Disposition: Transfer to [facility] Disposition Decision Time: 12:52 10/09/2024 Departure [...] tablet every six hours as needed. -- :10/09/24 CHARLY Vidales R.N. acetaminophen 325 mg chewable tablet: 1 tablet every six hours as needed. -- :10/09/24 CHARLY Vidales R.N. vancomycin 1.5 gram/300 mL [...] a day. -- :10/09/24 CHARLY Vidales R.N. loperamide 2 mg capsule: 1 capsule four times a day. (before meals and at bedtime) -- :30 10/09/24 CHARLY Vidales R.N. Lantus Solostar U-100 Insulin 100 unit/mL (3 mL) subcutaneous pen: 10 unit once a day. -- 09:10/09/24 CHARLY Vidales R.N. gabapentin 600 mg tablet: 1 tablet three times a day. -- 09:10/09/24 CHARLY Vidales R.N. ferrous sulfate 325 mg (65 mg iron) tablet: 1 tablet once a day. -- 09:30 10/09/24 CHARLY Vidales R.N. escitalopram 20 mg tablet: 1 tablet once a day. -- 09:10/09/24 CHARLY Vidales R.N. 2 of 8 Nurse Narrative Allergies: [place] -- 08:31 10/09/24 CHARLY Vidales R.N. Home [...] -- 09:02 (more content not included)... Normal [facility] ED ORDER SHEET (CPOE ONLY)on 10-09-2024 ED ORDER SHEET (CPOE ONLY) Order Sheet Order Sheet [address] [place] [id number] 10/09/2024 Patient: DALY EVANS Sex: Female : 1985 Age: 39y MEASUREMENTS: Wt: 90.7 kg, Ht/Jean-Paul: 67.0 in, BMI: 31.32 ALLERGIES: [place] MEDICATION/IV/DRIP/FLUID ORDERS Order Description Priority Entered Acknowledged [...] 12:24 LOAD IVPB80 mg diluted in Ariella Santamaria R.N. 10/09/2024 sodium chloride IVPB 0.9 % 100 Ariella Santamaria, mL (NOW x1) R.N. IV NS 0.9 %1000 mL at 999 10:28 10/09/2024 10:30 12:23 mL/hr (NOW x1) Farzaneh Avilez D.O. 10/09/2024 10/09/2024 Ariella Sheehan R.N. RPriscilaNPriscila Reason for ordering with alerts: Clinical consideration given --10:28 10/09/2024 Fazraneh Avilez D.O. Haloperidol IVP2 mg (NOW x1) 10:29 10/09/2024 10:30 12:21 Farzaneh Avilez D.O. 10/09/2024 10/09/2024 Ariella Sheehan, Shameka R.NPriscila Reason for ordering with alerts: Clinical [...] l Farzaneh Avilez D.O. 10/09/2024 10/09/2024 IVPB [id number] mEq at 50 mL/hr Ariella Sheehan, (NOW x1, HIGH ALERT R.N. R.N. MEDICATION) potassium 14:42 10/09/2024 Cancelled: Patient Off Unit chloride(K-Philip)20mEq/100m l Farzaneh Avilez D.O. 16:22 EDT Ariella Santamaria R.N. IVPB [id number] mEq at 50 mL/hr (NOW x1, HIGH [...] Stat 09:42 10/09/2024 09:44 10/09/2024 12:24 10/09/2024 Farzaneh Ariella Avilez Natalie Yoder, D.O. R.N. RPriscilaNPriscila Occult Blood, Gastric Stat 09:43 10/09/2024 09:44 10/09/2024 12:24 10/09/2024 Stat Ariella Harrington Natalie Yoder, D.O. R.NPriscila R.NPriscila PT with INR Stat Stat 10:13 10/09/2024 10:30 10/09/2024 12:24 10/09/2024 Ariella Harrington Natalie Yoder, D.O. R.N. R.N. PTT Stat Stat 10:14 10/09/2024 10:30 10/09/2024 12:24 10/09/2024 Ariella Harrington Natalie Yoder, D.O. R.NPriscila RIrene Haloperidol [CCL] Stat Stat 12:18 10/09/2024 12:24 10/09/2024 12:24 10/09/2024 Ariella Harrington, Na (more content not included)... Normal [facility] ED PHYSICIAN CLINICAL REPORT on 10-09-2024 ED PHYSICIAN CLINICAL REPORT Narrative Physician Clinical Narrative [address] [address] [id number] 10/09/2024 08:13:00 Patient: DALY EVANS Sex: Female : 1985 Age: 39y Disposition: Transfer to [facility] Disposition Decision Time: 12:52 10/09/2024 Measurements [...] subcutaneous syringe: twice a day. (give per [place] MAR dose of 0.95ml) escitalopram 20 mg [...] piggyback: 1500 mg twice a day. Allergies: [facility] Medications/Allergy Information Source: patient, [facility] record - [...] 450 Fi (more content not included)... Normal [facility] ED SUPER BILLon 10-09-2024 ED SUPER BILL [facility] [address] [place] [id number] 10/09/2024 Patient: DALY EVANS Sex: Female : 1985 Age: 39y Facility Professional Category Item Description Code Code Quantity Fee Total Nurse/E/M EMERGENCY 193604 1 $0.00 $0.00 DEPT VISIT HIGH SEVERITYFUNCJ (41421-19) Nurse/IV/IM/Infusions Drip/IVPB initial 990563 1 $0.00 $0.00 (33279) Nurse/IV/IM/Infusions Drip/IVPB seq 528615 2 $0.00 $0.00 (08461) Nurse/IV/IM/Infusions Hydration 663345 1 $0.00 $0.00 additional hour (87165) Nurse/IV/IM/Infusions IVP additional 668750 2 $0.00 $0.00 push (34440) Nurse/IV/IM/Infusions IVP initial (91944) 598444 1 $0.00 $0.00 Grand $0.00 Total Providers Farzaneh Avilez D.O. 1 of 2 [facility] Chief Complaint DRUG OVERDOSE. Principal Diagnosis Accidental overdose with methadone. Occult and minor GI bleed. Moderate acute renal failure. Hyperglycemia. Hypokalemia. Hypomagnesemia. ICD-10 Codes T40.3X1A: Poisoning by methadone, accidental (unintentional), initial encounter N19: Unspecified kidney failure N17.9: Acute kidney failure, unspecified E83.42: Hypomagnesemia E87.6: Hypokalemia K52.9: Noninfective gastroenteritis and colitis, unspecified R73.9: Hyperglycemia, unspecified K92.2: Gastrointestinal hemorrhage, unspecified 2 of 2 Normal [facility] ED VISIT SUMMARYon ED VISIT SUMMARY Visit Overview Visit Overview [facility] [address] [place] [address] [id number] 10/09/2024 Patient: DALY EVANS Sex: Female : [...] was not prescribed to her. ) ALLERGIES [facility] acetaminophen 325 mg chewable tablet: 1 tablet every six hours as needed. aspirin 81 mg chewable tablet: 1 tablet once a day. atorvastatin 40 mg tablet: 1 tablet once a day. Visit Overview enoxaparin 100 mg/mL subcutaneous syringe: twice a day. (give per [place] MAR dose of 0.95ml) escitalopram 20 mg [...] 08:31 10/09/24 RR 15:28 10/09/24 O2 Sat 08:10/09/24 96% O2 Sat 15:28 10/09/24 Pain 08:31 [...] MINOR GI BLEED 4 of 4 Normal [facility] ED VITALS FLOW SHEETon 10-09 ED VITALS FLOW SHEET Vitals Vital Sign Flow Sheet [facility] [address] [place] [address] [id number] 10/09/2024 Patient: DALY EVANS Sex: Female : [...] 10/09/2024 111 96% 4 of 4 Normal [facility] HISTORY PHYSICALon HISTORY PHYSICAL HNO ID: [id number] Author: ROSA MARIA BULLOCK MD Service: General [...] Lovenox, status post colostomy who presented to [facility] ED for accidental overdose. Patient resides in a nursing facility, approximately 1 month ago was [facility] after developing bowel obstruction. [...] PAST MEDICAL HISTORY Diagnosis Date Attempted suicide ([facility]) polysubstance Bipolar depression ([facility]) [facility] Whyte Gestational diabetes mellitus in ([facility]) Impaired fasting blood sugar 06/2015 a1c 5.7% [...] Patient ta (more content not included)... Normal [facility] MAGNESIUMon 10-09-2024 Magnesium [Mass/Vol] 1.5 mg/dL Low 1.8 - 2.4 [facility] Comment on above: Performed By: #### 2 85671 #### [facility],[address] [place] [address] OCCULT BLOOD GASTRICon 10-09 OCCULT BLOOD GASTRIC Normal [facility] Comment on above: Result Comment: { OC CULT BLOOD POSITIVE (NEGATIVE ) { SPECIMEN GASTRIC ASPIRATE Performed By: #### 2 78967 #### [facility],[address] [place] [address] pH (Bld) 4 [pH] Normal [facility] Comment on above: Performed By: #### 2 04698 #### [facility],[address] [place] [address] PROTHROMBIN TIME AND INRon 0 10-09-2024 INR Coag (PPP) [Relative time] 1.3 {INR} High 0.8 - 1.2 [facility] Comment on above: Result Comment: T [...] MECHANICAL HEART VALVES Performed By: #### 2 04501 #### [facility],[address] [place] [address] PROTHROMBIN TIME AND INR Normal [facility] Comment on above: Result Comment: PROT HROMBIN TIME AND INR Performed By: #### 2 29159 #### [place] [address] PT-COUMADIN 14.2 sec High 9.3 - 14.1 [facility] Comment on above: Performed By: #### 2 17726 #### [facility],[address] [place], [place] [id number] TROPONINon 10-09-2024 HS TROPONIN 6.2 pg/mL Normal 0.0 - 51.4 [facility] Comment on above: Performed By: #### 2 56251 #### [place] [id number] US KIDNEY/BLADDERon 10-10-19 25 US KIDNEY/BLADDER * * *Final Report* * * DATE OF EXAM: Oct 09 2024 7:04PM [facility] 1055 - US KIDNEY/BLADDER / PROCEDURE REASON: [...] the bladder lumen; please correlate with urinalysis. Director Camp: NANCY Transcribe Date/Time: Oct 10 2024 4:59A Dictated by : CHRISTIAN LEE MD This examination was interpreted and the report reviewed and electronically signed by: CHRISTIAN LEE MD on Oct 10 2024 5:02AM EST [id number] Normal [facility] Vancomycin [place] SerPl-mCncon 10-09-2024 Vancomycin random [Mass/Vol] 11.1 ug/mL Normal 10.0-25.0 [facility] Comment on above: Order Comment: Speci men Type: BLOOD SPECIMEN Ordering Facility: [facility] Address: [address] [place] [address] Result Comment: Refe rence ranges and high/low indicator flags are provided as general guidelines only. The treating physician must determine appropriate target levels/dosing based on the specific clinical situation. Performed By: #### 4 091-5 #### [facility] CLIA [id number] [employer] [place] [address] [place] CBC + DIFFon 10-04-2024 Baso # 0.02 x10EE3/UL Normal 0.00 - 0.10 [facility] Comment on above: Performed By: #### 2 88169 #### [facility],[address] [place] [address] Basophils/100 WBC (Bld) 0.3 % Normal 0.0 - 2.0 [facility] Comment on above: Performed By: #### 2 24460 #### [facility],[address] [place] [address] CBC + DIFF Normal [facility] Comment on above: Result Comment: CBC- COMPLETE BLOOD COUNT Performed By: #### 2 21423 #### [facility],[address] [place] [address] EO # 0.16 x10EE3/UL Normal 0.00 - 0.50 [facility] Comment on above: Performed By: #### 2 37002 #### [facility],[address] [place] [address] Eosinophils/100 WBC (Bld) 2.7 % Normal 0.0 - 7.0 [facility] Comment on above: Performed By: #### 2 50391 #### [facility],[address] [place] [address] Erythrocyte distribution width (RBC) [Ratio] 15.9 % High 12.0 - 15.6 [facility] Comment on above: Performed By: #### 2 84538 #### [facility],[address] [place] [address] Hematocrit (Bld) [Volume fraction] 29.2 % Low 34.0 - 46.0 [facility] Comment on above: Performed By: #### 2 98637 #### [facility],[address] [place] [address] Hemoglobin (Bld) [Mass/Vol] 9.7 g/dL Low 12.0 - 16.0 [facility] Comment on above: Performed By: #### 2 74976 #### [facility],[address] [place] [address] Lymph # 2.40 x10EE3/UL Normal 0.80 - 2.80 [facility] Comment on above: Performed By: #### 2 07752 #### [facility],[address] [place] [address] Lymphocytes/100 WBC (Bld) 39.2 % Normal 20.0 - 45.0 [facility] Comment on above: Performed By: #### 2 85876 #### [facility],[address] [place] [address] MANUAL DIFF N/A Normal [facility] Comment on above: Performed By: #### 2 38539 #### [facility],[address] [place] [address] MCH (RBC) [Entitic mass] 26 pg Low 27 - 33 [facility] Comment on above: Performed By: #### 2 47791 #### [facility],[address] [place] [address] MCHC 33 X10 3 Normal 32 - 36 [facility] Comment on above: Performed By: #### 2 93290 #### [facility],[address] [place] [address] MCV (RBC) [Entitic vol] 77 fL Low 80 - 99 [facility] Comment on above: Performed By: #### 2 41393 #### [facility],[address] [place] [address] Lea # 0.56 x10EE3/UL Normal 0.20 - 1.00 [facility] Comment on above: Performed By: #### 2 01163 #### [facility],[address] [place] [address] MONOS % 9.2 % Normal 0.0 - 10.0 [facility] Comment on above: Performed By: #### 2 38058 #### [facility],[address] [place] [address] Morphology Stan (Bld) [Interp] N/A Normal [facility] Comment on above: Performed By: #### 2 68401 #### [facility],[address] [place] [address] 56446 Neut # 2.99 x10EE3/UL Normal 1.50 - 7.10 [facility] Comment on above: Performed By: #### 2 49101 #### [place] [address] Neutrophils/100 WBC (Bld) 48.7 % Normal 46.0 - 76.0 [facility] Comment on above: Performed By: #### 2 24046 #### [facility],[address] [place], [place] [address] PLATELET 504 x10EE3/UL High 150 - 450 [facility] Comment on above: Performed By: #### 2 30205 #### [facility],[address] [place] [address] Platelet mean volume (Bld) [Entitic vol] 7.8 fL Normal 6.6 - 10.5 [facility] Comment on above: Result Comment: AUTO MATED DIFFERENTIAL Performed By: #### 2 68406 #### [facility],[address] [place] [address] 94574 RBC 3.79 x 10EE6/UL Low 4.10 - 5.30 [facility] Comment on above: Performed By: #### 2 33678 #### [place] [id number] WBC 6.1 x 10EE3/UL Normal 4.5 - 10.8 [facility] Comment on above: Performed By: #### 2 25398 #### [place] [id number] VANCOMYCIN TROUGHon 10-04-19 25 VANCOMYCIN,TROUGH 11.5 ug/mL High 5.0 - 10.0 [facility] Comment on above: Performed By: #### 2 60950 ####[facility],[address] [place] [address] CBC W Ordered Manual Differe ntial panel (Bld)on 10-02-2024 Basophils (Bld) [#/Vol] 0.04 10*3/uL [facility] Basophils/100 WBC (Bld) 0.5 % [facility] Differential cell count method Nom (Bld) Auto [facility] Eosinophils (Bld) [#/Vol] 0.14 10*3/uL [facility] Eosinophils/100 WBC (Bld) 1.9 % [facility] Erythrocyte distribution width (RBC) [Ratio] 15.7 % High 11.5 - 15.0 % [facility] Hematocrit (Bld) [Volume fraction] 30.2 % Low 36.0 - 46.0 % [facility] Hemoglobin (Bld) [Mass/Vol] 9.2 g/dL Low 11.5 - 15.5 g/dL [facility] Immature granulocytes (Bld) [#/Vol] [facility] Immature granulocytes/100 WBC (Bld) 0.3 % [facility] Interpretation and review of laboratory results Abnormal [facility] Lymphocytes (Bld) [#/Vol] 2.27 10*3/uL [facility] Lymphocytes/100 WBC (Bld) 30.5 % [facility] MCH (RBC) [Entitic mass] 24.2 pg Low 26.0 - 34.0 pg [facility] MCHC (RBC) [Mass/Vol] 30.5 g/dL 30.5 - 36.0 g/dL [facility] MCV (RBC) [Entitic vol] 79.5 fL Low 80.0 - 100.0 fL [facility] Monocytes (Bld) [#/Vol] 0.53 10*3/uL [facility] Monocytes/100 WBC (Bld) 7.1 % [facility] Neutrophils (Bld) [#/Vol] 4.44 10*3/uL [facility] Neutrophils/100 WBC (Bld) 59.7 % [facility] Nucleated RBC (Bld) [#/Vol] [facility] Nucleated RBC/100 WBC (Bld) [Ratio] 0 % /100 WBC [facility] Platelet mean volume (Bld) [Entitic vol] 9 fL 9.0 - 12.7 fL [facility] Platelets (Bld) [#/Vol] 443 10*3/uL High [facility] RBC (Bld) [#/Vol] 3.8 10*6/uL Low 3.90 - 5.2 0 m/uL [facility] WBC (Bld) [#/Vol] 7.44 10*3/uL [facility] This is an appended report. These results have been appended to a previously verified report. [facility] IMMUNOGLOBULINS,IGG,IGA,IGMo n 10-02-2024 IgA [Mass/Vol] 324 mg/dL 70 - 400 mg/dL [facility] IgG [Mass/Vol] 2708 mg/dL High 700 - 1600 mg/dL [facility] IgM [Mass/Vol] 99 mg/dL 40 - 230 mg/dL [facility] Interpretation and review of laboratory results Abnormal [facility] LMW ANTI XA ASSAYOrdered By: Yoseph Urban on 10-02-2024 LMW Heparin Qn (PPP) 0.49 High [facility] Comment on above: Therapeutic Range: 0 .5 to 1.1 IU/mL ([facility] 1998: 122:799 to 807). LMW Heparin Qn (PPP)Ordered By: Yoseph Urban on 10-02-2024 Interpretation and review of laboratory results Abnormal [facility] Frozen Plasma Aliquo t [facility] PATHOLOGIST INTERPRETATION C BC/DIFFOrdered By: Jaden Sr on 10-02-2024 [employer]erryboat [employer] review Stan (Unsp spec) [Interp] No review performed. [facility] Pathologist Interpretation, CBCDIF The Pathologist Interpretation on this sample was cancelled because the hematology analyzer did not flag any parameters as requiring manual review. If there is a specific clinical concern for which you would like a pathologist to review the blood smear, please call Lab Client Services within 28 days. Account Credited [facility] CMP with eGFRon 10-01-2024 AGE 39 years Normal [facility] Comment on above: Performed By: #### 2 62219 ####[facility],[address] [place] [address] Albumin [Mass/Vol] 1.8 g/dL Low 3.4 - 5.0 [facility] Comment on above: Performed By: #### 2 58581 ####[facility],[address] [place] [address] 20056 Albumin/Globulin [Mass ratio] 0.4 {ratio} Low 0.9 - 1.6 [facility] Comment on above: Performed By: #### 2 32043 ####[facility],[address] [place] [address] 78510 ALK PHOS 114 U/L Normal 46 - 116 [facility] Comment on above: Performed By: #### 2 94673 ####[facility],[address] [place] [address] 22112 ALT [Catalytic activity/Vol] 79 U/L High 16 - 63 [facility] Comment on above: Performed By: #### 2 53758 ####[facility],[address] [place] [address] 28843 Anion gap [Moles/Vol] 10 mmol/L Normal 10 - 20 [facility] Comment on above: Performed By: #### 2 26105 ####[facility],[address] [place] [address] 35899 AST [Catalytic activity/Vol] 34 U/L Normal 13 - 39 [facility] Comment on above: Performed By: #### 2 36630 ####[facility],[address] [place] [address] 08249 B/C RATIO 21 ratio Normal 0 - 30 [facility] Comment on above: Performed By: #### 2 77014 ####[facility],[address] [place] [address] 62887 Bilirubin [Mass/Vol] 0.5 mg/dL Normal 0.2 - 1.0 [facility] Comment on above: Performed By: #### 2 24280 ####[facility],[address] [place] [address] 03431 Calcium [Mass/Vol] 7.8 mg/dL Low 8.5 - 10.1 [facility] Comment on above: Performed By: #### 2 89284 ####[facility],[address] [place], [place] [address] Chloride [Moles/Vol] 105 mmol/L Normal 98 - 107 [facility] Comment on above: Performed By: #### 2 76787 ####[facility],[address] [place] [address] CMP with eGFR Normal [facility] Comment on above: Result Comment: COMP REHENSIVE METABOLIC PANEL Performed By: #### 2 68918 ####[place] [address] CO2 [Moles/Vol] 27.9 mmol/L Normal 21.0 - 32.0 [facility] Comment on above: Performed By: #### 2 21013 ####[place] [address] Creatinine [Mass/Vol] 0.71 mg/dL Normal 0.55 - 1.02 [facility] Comment on above: Performed By: #### 2 26052 ####[place] [address] GFR/1.73 sq M.predicted among non-blacks MDRD (S/P/Bld) [Vol rate/Area] mL/min/{1.73_m2} Normal 60 - 999 [facility] Comment on above: Performed By: #### 2 41355 ####[place] [address] Result Comment: ACCO RDING TO THE NATIONAL KIDNEY DISEASE EDUCATION PROGRAM(NKDE), A NORMAL eGFR IS A VALUE GREATER THAN OR EQUAL TO 60 ML/MIN/1.73 SQ METERS. CHRONIC KIDNEY DISEASE: <60mL/MIN/1.73 SQ METERS KIDNEY FAILURE: <15mL/MIN/1.73 SQ METERS THIS TEST SHOULD ONLY BE USED FOR PATIENTS 18 YEARS OF AGE AND OLDER. Globulin (S) [Mass/Vol] 5.1 g/dL High 1.5 - 3.8 [facility] Comment on above: Performed By: #### 2 44516 ####[facility],[address] [place] [address] 32831 Glucose [Mass/Vol] 170 mg/dL High 74 - 106 [facility] Comment on above: Performed By: #### 2 14434 ####[facility],[address] [place] [address] 97898 Potassium [Moles/Vol] 3.7 mmol/L Normal 3.5 - 5.1 [facility] Comment on above: Performed By: #### 2 30712 ####[facility],[address] [place] [address] 46131 Protein [Mass/Vol] 6.9 g/dL Normal 6.4 - 8.2 [facility] Comment on above: Performed By: #### 2 64129 ####[facility],[address] [place] [address] 98730 Sodium [Moles/Vol] 139 mmol/L Normal 136 - 145 [facility] Comment on above: Performed By: #### 2 86543 ####[facility],[address] [place] [address] 46487 Urea nitrogen [Mass/Vol] 15 mg/dL Normal 7 - 18 [facility] Comment on above: Performed By: #### 2 59942 ####[facility],[address] [place] [address] 71526 MAGNESIUMon 10-01-2024 Magnesium [Mass/Vol] 1.8 mg/dL Normal 1.8 - 2.4 [facility] Comment on above: Performed By: #### 2 73835 #### [facility],[address] [place] [address] 70308 PHOSPHORUSon 10-01-2024 Phosphate [Mass/Vol] 3.6 mg/dL Normal 2.6 - 4.7 [facility] Comment on above: Performed By: #### 2 70060 ####[facility],[address] [place] [address] VANCOMYCIN TROUGHon 10-02-19 25 VANCOMYCIN,TROUGH 10.8 ug/mL High 5.0 - 10.0 [facility] Comment on above: Performed By: #### 2 72286 ####[facility],[address] [place] [address] VANCOMYCIN TROUGHon 09-29-19 25 VANCOMYCIN,TROUGH 9.6 ug/mL Normal 5.0 - 10.0 [facility] Comment on above: Performed By: #### 2 95273 #### [facility],[address] [place] [address] CBC + DIFFon 09-27-2024 Baso # 0.03 x10EE3/UL Normal 0.00 - 0.10 [facility] Comment on above: Performed By: #### 2 63109 ####[facility],[address] [place] [address] Basophils/100 WBC (Bld) 0.5 % Normal 0.0 - 2.0 [facility] Comment on above: Performed By: #### 2 48094 ####[facility],[address] [place] [address] CBC + DIFF Normal [facility] Comment on above: Result Comment: CBC- COMPLETE BLOOD COUNT Performed By: #### 2 29796 ####[facility],[address] [place] [address] EO # 0.16 x10EE3/UL Normal 0.00 - 0.50 [facility] Comment on above: Performed By: #### 2 87436 ####[place] [address] Eosinophils/100 WBC (Bld) 2.4 % Normal 0.0 - 7.0 [facility] Comment on above: Performed By: #### 2 49551 ####[facility],[address] [place] [address] Erythrocyte distribution width (RBC) [Ratio] 16.7 % High 12.0 - 15.6 [facility] Comment on above: Performed By: #### 2 91941 ####[facility],[address] [place] [address] Hematocrit (Bld) [Volume fraction] 27.6 % Low 34.0 - 46.0 [facility] Comment on above: Performed By: #### 2 22432 ####[facility],[address] [place] [address] Hemoglobin (Bld) [Mass/Vol] 8.8 g/dL Low 12.0 - 16.0 [facility] Comment on above: Performed By: #### 2 00569 ####[facility],[address] [place] [address] Lymph # 1.44 x10EE3/UL Normal 0.80 - 2.80 [facility] Comment on above: Performed By: #### 2 95495 ####[facility],[address] [place] [address] Lymphocytes/100 WBC (Bld) 21.3 % Normal 20.0 - 45.0 [facility] Comment on above: Performed By: #### 2 57757 ####[facility],[address] [place] [address] MANUAL DIFF N/A Normal [facility] Comment on above: Performed By: #### 2 01749 ####[facility],[address] [place] [address] MCH (RBC) [Entitic mass] 25 pg Low 27 - 33 [facility] Comment on above: Performed By: #### 2 73749 ####[facility],[address] [place] [address] MCHC 32 X10 3 Normal 32 - 36 [facility] Comment on above: Performed By: #### 2 76708 ####[facility],[address] [place] [address] MCV (RBC) [Entitic vol] 79 fL Low 80 - 99 [facility] Comment on above: Performed By: #### 2 70883 ####[facility],[address] [place] [address] Lea # 0.61 x10EE3/UL Normal 0.20 - 1.00 [facility] Comment on above: Performed By: #### 2 84334 ####[facility],[address] [place] [address] MONOS % 9.1 % Normal 0.0 - 10.0 [facility] Comment on above: Performed By: #### 2 19621 ####[facility],[address] [place] [address] Morphology Stan (Bld) [Interp] N/A Normal [facility] Comment on above: Performed By: #### 2 17153 ####[facility],[address] [place] [address] Neut # 4.51 x10EE3/UL Normal 1.50 - 7.10 [facility] Comment on above: Performed By: #### 2 61531 ####[facility],[address] [place] [address] Neutrophils/100 WBC (Bld) 66.8 % Normal 46.0 - 76.0 [facility] Comment on above: Performed By: #### 2 09360 ####[facility],[address] [place] [address] PLATELET 543 x10EE3/UL High 150 - 450 [facility] Comment on above: Performed By: #### 2 24314 ####[facility],[address] [place] [address] Platelet mean volume (Bld) [Entitic vol] 7.9 fL Normal 6.6 - 10.5 [facility] Comment on above: Result Comment: AUTO MATED DIFFERENTIAL Performed By: #### 2 84126 ####[facility],[address] [place] [address] 88076 RBC 3.51 x 10EE6/UL Low 4.10 - 5.30 [facility] Comment on above: Performed By: #### 2 29521 ####[facility],[address] [place] [address] 39402 WBC 6.8 x 10EE3/UL Normal 4.5 - 10.8 [facility] Comment on above: Performed By: #### 2 46247 ####[facility],[address] [place] [address] 90880 CMP with eGFRon 09-27-2024 AGE 39 years Normal [facility] Comment on above: Performed By: #### 2 26155 ####[facility],[address] [place] [address] 76898 Albumin [Mass/Vol] 1.8 g/dL Low 3.4 - 5.0 [facility] Comment on above: Performed By: #### 2 92095 ####[facility],[address] [place] [address] 07695 Albumin/Globulin [Mass ratio] 0.3 {ratio} Low 0.9 - 1.6 [facility] Comment on above: Performed By: #### 2 96026 ####[facility],[address] [place] [address] 79469 ALK PHOS 131 U/L High 46 - 116 [facility] Comment on above: Performed By: #### 2 29009 ####[facility],[address] [place] [address] 58787 ALT [Catalytic activity/Vol] 90 U/L High 16 - 63 [facility] Comment on above: Performed By: #### 2 31896 ####[facility],[address] [place] [address] 00366 Anion gap [Moles/Vol] 10 mmol/L Normal 10 - 20 [facility] Comment on above: Performed By: #### 2 80448 ####[facility],[address] [place] [address] 62312 AST [Catalytic activity/Vol] 40 U/L High 13 - 39 [facility] Comment on above: Performed By: #### 2 10618 ####[facility],[address] [place] [address] 40227 B/C RATIO 20 ratio Normal 0 - 30 [facility] Comment on above: Performed By: #### 2 37672 ####[facility],[address] [place] [address] 18694 Bilirubin [Mass/Vol] 0.5 mg/dL Normal 0.2 - 1.0 [facility] Comment on above: Performed By: #### 2 87821 ####[facility],[address] [place] [address] 80412 Calcium [Mass/Vol] 8.1 mg/dL Low 8.5 - 10.1 [facility] Comment on above: Performed By: #### 2 26559 ####[facility],[address] [place] [address] 97159 Chloride [Moles/Vol] 102 mmol/L Normal 98 - 107 [facility] Comment on above: Performed By: #### 2 71355 ####[facility],[address] [place] [address] 15430 CMP with eGFR Normal [facility] Comment on above: Result Comment: COMP REHENSIVE METABOLIC PANEL Performed By: #### 2 38057 ####[facility],[address] [place] [address] 50855 CO2 [Moles/Vol] 26.0 mmol/L Normal 21.0 - 32.0 [facility] Comment on above: Performed By: #### 2 82068 ####[facility],[address] [place] [address] 19088 Creatinine [Mass/Vol] 0.71 mg/dL Normal 0.55 - 1.02 [facility] Comment on above: Performed By: #### 2 86962 ####[facility],[address] [place] [address] 85294 GFR/1.73 sq M.predicted among non-blacks MDRD (S/P/Bld) [Vol rate/Area] mL/min/{1.73_m2} Normal 60 - 999 [facility] Comment on above: Performed By: #### 2 41069 ####[facility],[address] [place] [address] 46049 Result Comment: ACCO RDING TO THE NATIONAL KIDNEY DISEASE EDUCATION PROGRAM(NKDE), A NORMAL eGFR IS A VALUE GREATER THAN OR EQUAL TO 60 ML/MIN/1.73 SQ METERS. CHRONIC KIDNEY DISEASE: <60mL/MIN/1.73 SQ METERS KIDNEY FAILURE: <15mL/MIN/1.73 SQ METERS THIS TEST SHOULD ONLY BE USED FOR PATIENTS 18 YEARS OF AGE AND OLDER. Globulin (S) [Mass/Vol] 5.3 g/dL High 1.5 - 3.8 [facility] Comment on above: Performed By: #### 2 77629 ####[facility],[address] [place] [address] 16242 Glucose [Mass/Vol] 82 mg/dL Normal 74 - 106 [facility] Comment on above: Performed By: #### 2 80765 ####[facility],[address] [place] [address] 85523 Potassium [Moles/Vol] 3.6 mmol/L Normal 3.5 - 5.1 [facility] Comment on above: Performed By: #### 2 59307 ####[facility],[address] [place] [address] 28829 Protein [Mass/Vol] 7.1 g/dL Normal 6.4 - 8.2 [facility] Comment on above: Performed By: #### 2 27660 ####[facility],[address] [place] [address] 53352 Sodium [Moles/Vol] 134 mmol/L Low 136 - 145 [facility] Comment on above: Performed By: #### 2 49873 ####[facility],[address] [place] [address] 95570 Urea nitrogen [Mass/Vol] 14 mg/dL Normal 7 - 18 [facility] Comment on above: Performed By: #### 2 83463 ####[facility],[address] [place] [address] 57183 MAGNESIUMon 09-27-2024 Magnesium [Mass/Vol] 1.9 mg/dL Normal 1.8 - 2.4 [facility] Comment on above: Performed By: #### 2 89212 #### [facility],[address] [place] [address] 40204 BMP with eGFRon 09-25-2024 AGE 39 years Normal [facility] Comment on above: Performed By: #### 2 09498 ####[facility],[address] [place] [address] 54902 Anion gap [Moles/Vol] 14 mmol/L Normal 10 - 20 [facility] Comment on above: Performed By: #### 2 61284 ####[facility],[address] [place] [address] 48566 BMP with eGFR Normal [facility] Comment on above: Result Comment: BASI C METABOLIC PANEL Performed By: #### 2 34120 ####[facility],[address] [place] [address] 79241 Calcium [Mass/Vol] 8.5 mg/dL Normal 8.5 - 10.1 [facility] Comment on above: Performed By: #### 2 37771 ####[facility],[address] [place] [address] 31040 Chloride [Moles/Vol] 101 mmol/L Normal 98 - 107 [facility] Comment on above: Performed By: #### 2 79327 ####[facility],[address] [place] [address] 03976 CO2 [Moles/Vol] 23.2 mmol/L Normal 21.0 - 32.0 [facility] Comment on above: Performed By: #### 2 00928 ####[facility],[address] [place] [address] Creatinine [Mass/Vol] 0.87 mg/dL Normal 0.55 - 1.02 [facility] Comment on above: Performed By: #### 2 62445 ####[facility],[address] [place], [place] [address] GFR/1.73 sq M.predicted among non-blacks MDRD (S/P/Bld) [Vol rate/Area] mL/min/{1.73_m2} Normal 60 - 999 [facility] Comment on above: Performed By: #### 2 86417 ####[facility],[address] [place] [address] Result Comment: ACCO RDING TO THE NATIONAL KIDNEY DISEASE EDUCATION PROGRAM(NKDE), A NORMAL eGFR IS A VALUE GREATER THAN OR EQUAL TO 60 ML/MIN/1.73 SQ METERS. CHRONIC KIDNEY DISEASE: <60mL/MIN/1.73 SQ METERS KIDNEY FAILURE: <15mL/MIN/1.73 SQ METERS THIS TEST SHOULD ONLY BE USED FOR PATIENTS 18 YEARS OF AGE AND OLDER. Glucose [Mass/Vol] 89 mg/dL Normal 74 - 106 [facility] Comment on above: Performed By: #### 2 33074 ####[facility],[address] [place] [address] 70532 Potassium [Moles/Vol] 4.6 mmol/L Normal 3.5 - 5.1 [facility] Comment on above: Performed By: #### 2 59591 ####[facility],[address] [place] [address] 47433 Sodium [Moles/Vol] 134 mmol/L Low 136 - 145 [facility] Comment on above: Performed By: #### 2 79213 ####[facility],[address] [place], [place] [address] Urea nitrogen [Mass/Vol] 11 mg/dL Normal 7 - 18 [facility] Comment on above: Performed By: #### 2 14552 ####[facility],[address] [place] [address] VANCOMYCIN TROUGHon 09-26-19 25 VANCOMYCIN,TROUGH 4.9 ug/mL Low 5.0 - 10.0 [facility] Comment on above: Performed By: #### 2 46073 #### [facility],[address] [place] [address] VANCOMYCIN,TROUGH 5.0 ug/mL Normal 5.0 - 10.0 [facility] Comment on above: Performed By: #### 2 28675 #### [facility],[address] [place] [address] CBC + DIFFon 09-24-2024 Baso # 0.07 x10EE3/UL Normal 0.00 - 0.10 [facility] Comment on above: Performed By: #### 2 27284 ####[facility],[address] [place] [address] Basophils/100 WBC (Bld) 0.6 % Normal 0.0 - 2.0 [facility] Comment on above: Performed By: #### 2 42412 ####[facility],[address] [place] [address] CBC + DIFF Normal [facility] Comment on above: Result Comment: CBC- COMPLETE BLOOD COUNT Performed By: #### 2 81990 ####[facility],[address] [place] [address] EO # 0.24 x10EE3/UL Normal 0.00 - 0.50 [facility] Comment on above: Performed By: #### 2 07061 ####[facility],[address] [place] [address] 38248 Eosinophils/100 WBC (Bld) 1.9 % Normal 0.0 - 7.0 [facility] Comment on above: Performed By: #### 2 67054 ####[facility],[address] [place] [address] Erythrocyte distribution width (RBC) [Ratio] 17.1 % High 12.0 - 15.6 [facility] Comment on above: Performed By: #### 2 26302 ####[facility],[address] [place] [address] Hematocrit (Bld) [Volume fraction] 26.8 % Low 34.0 - 46.0 [facility] Comment on above: Performed By: #### 2 32159 ####[facility],[address] [place] [address] Hemoglobin (Bld) [Mass/Vol] 8.6 g/dL Low 12.0 - 16.0 [facility] Comment on above: Performed By: #### 2 76554 ####[facility],[address] [place] [address] Lymph # 2.14 x10EE3/UL Normal 0.80 - 2.80 [facility] Comment on above: Performed By: #### 2 15749 ####[facility],[address] [place], [place] [address] Lymphocytes/100 WBC (Bld) 17.2 % Low 20.0 - 45.0 [facility] Comment on above: Performed By: #### 2 84480 ####[facility],[address] [place] [address] MANUAL DIFF N/A Normal [facility] Comment on above: Performed By: #### 2 14738 ####[facility],[address] [place], [place] [address] MCH (RBC) [Entitic mass] 25 pg Low 27 - 33 [facility] Comment on above: Performed By: #### 2 12383 ####[facility],[address] [place], [place] [address] MCHC 32 X10 3 Normal 32 - 36 [facility] Comment on above: Performed By: #### 2 15197 ####[facility],[address] [place] [address] 44224 MCV (RBC) [Entitic vol] 79 fL Low 80 - 99 [facility] Comment on above: Performed By: #### 2 37958 ####[facility],[address] [place] [address] 91163 Lea # 1.36 x10EE3/UL High 0.20 - 1.00 [facility] Comment on above: Performed By: #### 2 32752 ####[facility],[address] [place] [address] 62646 MONOS % 10.9 % High 0.0 - 10.0 [facility] Comment on above: Performed By: #### 2 44485 ####[facility],[address] [place] [address] 15566 Morphology Stan (Bld) [Interp] N/A Normal [facility] Comment on above: Performed By: #### 2 73020 ####[facility],[address] [place] [address] Neut # 8.65 x10EE3/UL High 1.50 - 7.10 [facility] Comment on above: Performed By: #### 2 64764 ####[facility],[address] [place] [address] 48324 Neutrophils/100 WBC (Bld) 69.4 % Normal 46.0 - 76.0 [facility] Comment on above: Performed By: #### 2 17039 ####[facility],[address] [place] [address] 44334 PLATELET 538 x10EE3/UL High 150 - 450 [facility] Comment on above: Performed By: #### 2 36963 ####[facility],[address] [place] [address] 13962 Platelet mean volume (Bld) [Entitic vol] 8.1 fL Normal 6.6 - 10.5 [facility] Comment on above: Result Comment: AUTO MATED DIFFERENTIAL Performed By: #### 2 66269 ####[facility],[address] [place] [address] 10619 RBC 3.39 x 10EE6/UL Low 4.10 - 5.30 [facility] Comment on above: Performed By: #### 2 82287 ####[facility],[address] [place] [address] 35625 WBC 12.5 x 10EE3/UL High 4.5 - 10.8 [facility] Comment on above: Performed By: #### 2 38051 ####[facility],[address] [place] [address] 36092 CMP with eGFRon 09-24-2024 AGE 39 years Normal [facility] Comment on above: Performed By: #### 2 09485 #### [facility],[address] [place] [address] 32270 Albumin [Mass/Vol] 1.7 g/dL Low 3.4 - 5.0 [facility] Comment on above: Performed By: #### 2 21877 #### [facility],[address] [place] [address] 20802 Albumin/Globulin [Mass ratio] 0.3 {ratio} Low 0.9 - 1.6 [facility] Comment on above: Performed By: #### 2 04589 #### [facility],[address] [place] [address] 30042 ALK PHOS 144 U/L High 46 - 116 [facility] Comment on above: Performed By: #### 2 27961 #### [facility],[address] [place] [address] 28944 ALT [Catalytic activity/Vol] 90 U/L High 16 - 63 [facility] Comment on above: Performed By: #### 2 30005 #### [facility],[address] [place] [address] 94630 Anion gap [Moles/Vol] 13 mmol/L Normal 10 - 20 [facility] Comment on above: Performed By: #### 2 57921 #### [facility],[address] [place] [address] 20577 AST [Catalytic activity/Vol] 40 U/L High 13 - 39 [facility] Comment on above: Performed By: #### 2 54201 #### [facility],[address] [place] [address] 45165 B/C RATIO 22 ratio Normal 0 - 30 [facility] Comment on above: Performed By: #### 2 75569 #### [facility],[address] [place] [address] 36682 Bilirubin [Mass/Vol] 0.5 mg/dL Normal 0.2 - 1.0 [facility] Comment on above: Performed By: #### 2 57331 #### [facility],[address] [place] [address] 09419 Calcium [Mass/Vol] 8.1 mg/dL Low 8.5 - 10.1 [facility] Comment on above: Performed By: #### 2 54853 #### [facility],[address] [place] [address] 31810 Chloride [Moles/Vol] 101 mmol/L Normal 98 - 107 [facility] Comment on above: Performed By: #### 2 53406 #### [facility],[address] [place] [address] 18055 CMP with eGFR Normal [facility] Comment on above: Result Comment: COMP REHENSIVE METABOLIC PANEL Performed By: #### 2 53371 #### [facility],[address] [place] [address] 82947 CO2 [Moles/Vol] 25.9 mmol/L Normal 21.0 - 32.0 [facility] Comment on above: Performed By: #### 2 52365 #### [facility],[address] [place] [address] 95366 Creatinine [Mass/Vol] 0.76 mg/dL Normal 0.55 - 1.02 [facility] Comment on above: Performed By: #### 2 02721 #### [facility],[address] [place] [address] 42107 GFR/1.73 sq M.predicted among non-blacks MDRD (S/P/Bld) [Vol rate/Area] mL/min/{1.73_m2} Normal 60 - 999 [facility] Comment on above: Performed By: #### 2 52065 #### [facility],[address] [place] [address] 32980 Result Comment: ACCO RDING TO THE NATIONAL KIDNEY DISEASE EDUCATION PROGRAM(NKDE), A NORMAL eGFR IS A VALUE GREATER THAN OR EQUAL TO 60 ML/MIN/1.73 SQ METERS. CHRONIC KIDNEY DISEASE: <60mL/MIN/1.73 SQ METERS KIDNEY FAILURE: <15mL/MIN/1.73 SQ METERS THIS TEST SHOULD ONLY BE USED FOR PATIENTS 18 YEARS OF AGE AND OLDER. Globulin (S) [Mass/Vol] 5.4 g/dL High 1.5 - 3.8 [facility] Comment on above: Performed By: #### 2 99188 #### [facility],[address] [place] [address] 91574 Glucose [Mass/Vol] 88 mg/dL Normal 74 - 106 [facility] Comment on above: Performed By: #### 2 04186 #### [facility],[address] [place] [address] 52326 Potassium [Moles/Vol] 3.7 mmol/L Normal 3.5 - 5.1 [facility] Comment on above: Performed By: #### 2 42679 #### [facility],[address] [place] [address] 58266 Protein [Mass/Vol] 7.1 g/dL Normal 6.4 - 8.2 [facility] Comment on above: Performed By: #### 2 35193 #### [facility],[address] [place] [address] 40933 Sodium [Moles/Vol] 136 mmol/L Normal 136 - 145 [facility] Comment on above: Performed By: #### 2 78081 #### [facility],[address] [place] [address] Urea nitrogen [Mass/Vol] 17 mg/dL Normal 7 - 18 [facility] Comment on above: Performed By: #### 2 83115 #### [facility],[address] [place] [address] MAGNESIUMon 09-24-2024 Magnesium [Mass/Vol] 1.9 mg/dL Normal 1.8 - 2.4 [facility] Comment on above: Performed By: #### 2 93465 #### [facility],[address] [place] [address] BCIDon 09-23-2024 Acinetobacter michael-baumanii complex Not detected Normal Not Detected [facility] Comment on above: Performed By: #### B ANITHA #### [place] [address] Bacteroides fragilis Not detected Normal Not Detected [facility] Comment on above: Performed By: #### B ANITHA #### [place] [address] BCID Comment See Comment Normal [facility] Comment on above: Result Comment: Anti [...] follow. Performed By: #### B ANITHA #### [place] [address] Mary Ann albicans Not detected Normal Not Detected [facility] Comment on above: Performed By: #### B ANITHA #### [place] [address] Mary Ann auris Not detected Normal Not Detected [facility] Comment on above: Performed By: #### B ANITHA #### [place] [phone] Mary Ann glabrata Not detected Normal Not Detected [facility] Comment on above: Performed By: #### B ANITHA #### [facility] [address] [place] [address] Mary Ann krusei Not detected Normal Not Detected [facility] Comment on above: Performed By: #### B ANITHA #### [facility] [address] [place] [address] Mary Ann parapsilosis Not detected Normal Not Detected [facility] Comment on above: Performed By: #### B ANITHA #### [facility] [address] [place] [address] Mary Ann tropicalis Not detected Normal Not Detected [facility] Comment on above: Performed By: #### B ANITHA #### [facility] [address] [place] [address] Cryptococcus neoformans-gattii Not detected Normal Not Detected [facility] Comment on above: Performed By: #### B ANITHA #### [facility] [address] [place] [address] CTX-M (ESBL) Not Applicable Normal Not Detected [facility] Comment on above: Performed By: #### B ANITHA #### [facility] [address] [place] [address] E. Coli Not detected Normal Not Detected [facility] Comment on above: Performed By: #### B ANITHA #### [facility] [address] [place] [address] Enterobacter cloacae Complex Not detected Normal Not Detected [facility] Comment on above: Performed By: #### B ANITHA #### [facility] [address] [place] [address] Enterobacterales Not detected Normal Not Detected [facility] Comment on above: Performed By: #### B ANITHA #### [facility] [address] [place] [address] Enterococcus faecalis Not detected Normal Not Detected [facility] Comment on above: Performed By: #### B ANITHA #### [facility] [address] [place] [address] Enterococcus faecium Not detected Normal Not Detected [facility] Comment on above: Performed By: #### B ANITHA #### [facility] [address] [place] [address] 20250 Haemophilus influenzae Not detected Normal Not Detected [facility] Comment on above: Performed By: #### B ANITHA #### [facility] [address] [place] [address] 46006 IMP (Carbapenemase) Not Applicable Normal Not Detected [facility] Comment on above: Performed By: #### B ANITHA #### [facility] [address] [place] [address] 45068 Klebsiella aerogenes Not detected Normal Not Detected [facility] Comment on above: Performed By: #### B ANITHA #### [place] [address] Klebsiella oxytoca Not detected Normal Not Detected [facility] Comment on above: Performed By: #### B ANITHA #### [place] [phone] Klebsiella pneumoniae group Not detected Normal Not Detected [facility] Comment on above: Performed By: #### B ANITHA #### [place] [address] KPC (Carbapenemase) Not Applicable Normal Not Detected [facility] Comment on above: Performed By: #### B ANITHA #### [place] [address] Listeria monocytogenes Not detected Normal Not Detected [facility] Comment on above: Performed By: #### B AINTHA #### [place] [address] MCR-1 (Colistin Resistance) Not Applicable Normal Not Detected [facility] Comment on above: Performed By: #### B ANITHA #### [facility] [address] [place], [place] [address] Mec A/C Detected Abnormal Not Detected [facility] Comment on above: Performed By: #### B ANITHA #### [place] [phone] Mec A/C-MREJ (MRSA) Not Applicable Normal Not Detected [facility] Comment on above: Performed By: #### B ANITHA #### [place] [phone] NDM (Carbapenemase) Not Applicable Normal Not Detected [facility] Comment on above: Performed By: #### B ANITHA #### [place] [phone] Neisseria meningitidis (Encapsalated) Not detected Normal Not Detected [facility] Comment on above: Performed By: #### B ANITHA #### [place] [address] OXA-48 like (Carbapenemase) Not Applicable Normal Not Detected [facility] Comment on above: Performed By: #### B ANITHA #### [place] [address] Proteus Not detected Normal Not Detected [facility] Comment on above: Performed By: #### B ANITHA #### [place] [address] Pseudomonas aeruginosa Not detected Normal Not Detected [facility] Comment on above: Performed By: #### B ANITHA #### [place] [address] S. agalactiae Org specific cx Ql (Vag fld) Not detected Normal Not Detected [facility] Comment on above: Performed By: #### B ANITHA #### [place] [address] Salmonella species Not detected Normal Not Detected [facility] Comment on above: Performed By: #### B ANITHA #### [place] [address] Serratia marcescens Not detected Normal Not Detected [facility] Comment on above: Performed By: #### B ANITHA #### [place] [address] Staphylococcus Detected Abnormal Not Detected [facility] Comment on above: Performed By: #### B ANITHA #### [place] [phone] Staphylococcus aureus Not detected Normal Not Detected [facility] Comment on above: Result Comment: If S taphylococcus aureus is Detected, an Infectious Disease physician consult is required on identification. Performed By: #### B ANITHA #### [place] [address] Staphylococcus epidermidis Detected Abnormal Not Detected [facility] Comment on above: Performed By: #### B ANITHA #### [facility] [address] [place] [address] Staphylococcus lugdunensis Not detected Normal Not Detected [facility] Comment on above: Performed By: #### B ANITHA #### [place] [address] Stenotrophomonas maltophilia Not detected Normal Not Detected [facility] Comment on above: Performed By: #### B ANITHA #### [place] [address] Streptococcus Not detected Normal Not Detected [facility] Comment on above: Performed By: #### B ANITHA #### [place] [address] Streptococcus pneumoniae Not detected Normal Not Detected [facility] Comment on above: Performed By: #### B ANITHA #### [place] [address] Streptococcus pyogenes Not detected Normal Not Detected [facility] Comment on above: Performed By: #### B ANITHA #### [place] [address] Van A/B Not Applicable Normal Not Detected [facility] Comment on above: Performed By: #### B ANITHA #### [place] [address] VIM (Carbapenemase) Not Applicable Normal Not Detected [facility] Comment on above: Performed By: #### B ANITHA #### [place] [address] CULTURE CATHETER TIP [AULTMA N]on 09-23-2024 CULTURE CATHETER TIP [IRASEMA] CULTURE CATHETER TIP [IRASEMA] _CATHETER TIP CULTURE_ GO TO [employer] REPORTS AND ATTACHMENTS FOR SCANNED REPORT 09/28/24.1302.DNP.COMPLETE Normal [facility] Comment on above: Performed By: #### 2 18749 #### [facility],[address] [place] [address] 28355 CULTURE BLOOD [IRASEMA]on Microscopic examination of blood, culture CULTURE BLOOD [IRASEMA] _BLOOD CULTURE_ GO TO [employer] REPORTS AND ATTACHMENTS FOR SCANNED REPORT 09/28/24.1302.DNP.COMPLETE Normal [facility] Comment on above: Performed By: #### 2 21884 #### [facility],[address] [place] [address] 12995 Microscopic examination of blood, culture CULTURE BLOOD [IRASEMA] _BLOOD CULTURE_ GO TO [employer] REPORTS AND ATTACHMENTS FOR SCANNED REPORT 09/28/24.1301.DNP.COMPLETE Normal [facility] Comment on above: Performed By: #### 2 97342 #### [facility],[address] [place] [address] 23520 URINALYSISon 09-21-2024 Bilirubin Ql (U) Negative Normal NORMAL: NEGATIVE [facility] Comment on above: Performed By: #### 2 51381 #### [facility],[address] [place] [address] 88634 Clarity (U) clear Normal NORMAL: CLEAR [facility] Comment on above: Performed By: #### 2 74861 #### [facility],[address] [place] [address] 81129 Color (U) yellow Normal NORMAL: YELLOW [facility] Comment on above: Performed By: #### 2 72629 #### [facility],[address] [place] [address] 50019 Glucose Ql (U) NORM Normal NORMAL: NORMAL [facility] Comment on above: Performed By: #### 2 93942 #### [facility],[address] [place] [address] 02896 Hemoglobin Ql (U) Negative Normal NORMAL: NEGATIVE [facility] Comment on above: Performed By: #### 2 09789 #### [facility],[address] [place] [address] 53367 Ketone Negative Normal NORMAL: NEGATIVE [facility] Comment on above: Performed By: #### 2 18797 #### [facility],[address] [place] [address] 92473 Leukocytes Negative Normal NORMAL: NEGATIVE [facility] Comment on above: Performed By: #### 2 21164 #### [facility],[address] [place] [address] 25649 Nitrite Ql (U) Negative Normal NORMAL: NEGATIVE [facility] Comment on above: Performed By: #### 2 19081 #### [facility],[address] [place] [address] 00603 pH (U) 6.5 [pH] Normal NORMAL: 5.0-8.0 [facility] Comment on above: Performed By: #### 2 77737 #### [facility],[address] [place] [address] 94127 Protein Ql (U) 15 Abnormal NORMAL: NEGATIVE [facility] Comment on above: Performed By: #### 2 22008 #### [facility],[address] [place] [address] Sp [place] 1.020 Normal NORMAL: 1.010-1.030 [facility] Comment on above: Performed By: #### 2 17772 #### [facility],[address] [place] [address] Specimen Type Clean catch Normal [facility] Comment on above: Performed By: #### 2 71231 #### [facility],[address] [place], [place] [address] Urinalysis dipstick W Reflex Microscopic panel (U) NOT INDICATED Normal [facility] Comment on above: Performed By: #### 2 51659 #### [facility],[address] [place] [address] 49190 Urobilinog NORM Normal NORMAL: NORMAL [facility] Comment on above: Performed By: #### 2 70226 #### [facility],[address] [place] [address] 76789 URINE CULTURE [CCL]on 2024 Bacteria identified Cx Nom (U) URCUL See Results Below See Below CULTURE, URINE MIXED MICROBIOTA 10,000 -<50,000 CFU/ml Mixed microbiota No further workup. Mixed microbiota can be due to???urine???contamination with s SOURCE: Urine (Nonspecific) [facility] [address] [place] [id number] Jaison Lema III, M.D. [id number] Normal [facility] Comment on above: Performed By: #### 2 03727 #### [facility],[address] [place] [address] 17082 CBC + DIFFon 09-20-2024 Baso # 0.06 x10EE3/UL Normal 0.00 - 0.10 [facility] Comment on above: Performed By: #### 2 67051 ####[facility],[address] [place] [address] 74151 Basophils/100 WBC (Bld) 0.4 % Normal 0.0 - 2.0 [facility] Comment on above: Performed By: #### 2 07637 ####[facility],[address] [place] [address] 15664 Basophils/100 WBC (Bld) 1.0 % Normal 0.0 - 2.0 [facility] Comment on above: Performed By: #### 2 47076 ####[facility],[address] [place] [address] 68932 CBC + DIFF Normal [facility] Comment on above: Result Comment: CBC- COMPLETE BLOOD COUNT Performed By: #### 2 14002 ####[facility],[address] [place] [address] 63666 CELL COUNT 100 Normal [facility] Comment on above: Performed By: #### 2 39297 ####[facility],[address] [place] [address] 76748 EO 1.0 % Normal 0.0 - 7.0 [facility] Comment on above: Performed By: #### 2 08341 ####[facility],[address] [place] [address] 65995 EO # 0.22 x10EE3/UL Normal 0.00 - 0.50 [facility] Comment on above: Performed By: #### 2 76351 ####[facility],[address] [place] [address] 15621 Eosinophils/100 WBC (Bld) 1.4 % Normal 0.0 - 7.0 [facility] Comment on above: Performed By: #### 2 76903 ####[facility],[address] [place] [address] 33145 Erythrocyte distribution width (RBC) [Ratio] 18.0 % High 12.0 - 15.6 [facility] Comment on above: Performed By: #### 2 03050 ####[facility],[address] [place] [address] 78742 Hematocrit (Bld) [Volume fraction] 28.2 % Low 34.0 - 46.0 [facility] Comment on above: Performed By: #### 2 69828 ####[facility],[address] [place] [address] 20308 Hemoglobin (Bld) [Mass/Vol] 9.1 g/dL Low 12.0 - 16.0 [facility] Comment on above: Performed By: #### 2 47259 ####[address] [address] Lymph # 2.04 x10EE3/UL Normal 0.80 - 2.80 [facility] Comment on above: Performed By: #### 2 33637 ####[facility],[address] [place] [address] 51684 Lymphocytes/100 WBC (Bld) 12.6 % Low 20.0 - 45.0 [facility] Comment on above: Performed By: #### 2 37250 ####[facility],[address] [place] [address] 18775 Lymphocytes/100 WBC (Bld) 13 % Low 20 - 45 [facility] Comment on above: Performed By: #### 2 47284 ####[facility] [place] [address] MANUAL DIFF SEE BELOW Normal [facility] Comment on above: Performed By: #### 2 73995 ####[facility],[address] [place] [address] MCH (RBC) [Entitic mass] 26 pg Low 27 - 33 [facility] Comment on above: Performed By: #### 2 00559 ####[facility],[address] [place] [address] MCHC 32 X10 3 Normal 32 - 36 [facility] Comment on above: Performed By: #### 2 05268 ####[facility],[address] [place] [address] MCV (RBC) [Entitic vol] 80 fL Normal 80 - 99 [facility] Comment on above: Performed By: #### 2 19288 ####[facility],[address] [place] [address] Lea # 1.34 x10EE3/UL High 0.20 - 1.00 [facility] Comment on above: Performed By: #### 2 00570 ####[facility],[address] [place] [address] MONOS 4 % Normal 0 - 10 [facility] Comment on above: Performed By: #### 2 40070 ####[facility],[address] [place] [address] MONOS % 8.3 % Normal 0.0 - 10.0 [facility] Comment on above: Performed By: #### 2 29342 ####[facility],[address] [place] [address] Morphology Stan (Bld) [Interp] REVIEWED Normal [facility] Comment on above: Performed By: #### 2 89841 ####[facility],[address] [place] [address] Neut # 12.46 x10EE3/UL High 1.50 - 7.10 [facility] Comment on above: Performed By: #### 2 06690 ####[facility],[address] [place] [address] 99997 Neutrophils/100 WBC (Bld) 77.3 % High 46.0 - 76.0 [facility] Comment on above: Performed By: #### 2 43509 ####[facility],[address] [place] [address] 26506 NRBC 1 /100 Normal [facility] Comment on above: Performed By: #### 2 06978 ####[facility],[address] [place] [address] 20526 PLATELET 422 x10EE3/UL Normal 150 - 450 [facility] Comment on above: Performed By: #### 2 40992 ####[facility],[address] [place] [address] 26159 Platelet mean volume (Bld) [Entitic vol] 8.8 fL Normal 6.6 - 10.5 [facility] Comment on above: Result Comment: AUTO MATED DIFFERENTIAL Performed By: #### 2 93238 ####[facility],[address] [place] [address] 23289 RBC 3.52 x 10EE6/UL Low 4.10 - 5.30 [facility] Comment on above: Performed By: #### 2 13699 ####[facility],[address] [place] [address] 20765 SEGS 81 % High 46 - 76 [facility] Comment on above: Performed By: #### 2 86355 ####[facility],[address] [place] [address] 86387 WBC 16.1 x 10EE3/UL High 4.5 - 10.8 [facility] Comment on above: Performed By: #### 2 45265 ####[facility],[address] [place] [address] 64598 CMP with eGFRon 09-20-2024 AGE 39 years Normal [facility] Comment on above: Performed By: #### 2 42162 #### [facility],[address] [place] [address] 80148 Albumin [Mass/Vol] 1.6 g/dL Low 3.4 - 5.0 [facility] Comment on above: Performed By: #### 2 20738 #### [facility],[address] [place] [address] 29882 Albumin/Globulin [Mass ratio] 0.3 {ratio} Low 0.9 - 1.6 [facility] Comment on above: Performed By: #### 2 25523 #### [facility],[address] [place] [address] 10630 ALK PHOS 136 U/L High 46 - 116 [facility] Comment on above: Performed By: #### 2 33952 #### [facility],[address] [place] [address] 80175 ALT [Catalytic activity/Vol] 80 U/L High 16 - 63 [facility] Comment on above: Performed By: #### 2 23287 #### [facility],[address] [place] [address] 28195 Anion gap [Moles/Vol] 10 mmol/L Normal 10 - 20 [facility] Comment on above: Performed By: #### 2 32560 #### [facility],[address] [place] [address] 96500 AST [Catalytic activity/Vol] 34 U/L Normal 13 - 39 [facility] Comment on above: Performed By: #### 2 59997 #### [facility],[address] [place] [address] 25995 B/C RATIO 15 ratio Normal 0 - 30 [facility] Comment on above: Performed By: #### 2 34991 #### [facility],[address] [place] [address] 50437 Bilirubin [Mass/Vol] 0.6 mg/dL Normal 0.2 - 1.0 [facility] Comment on above: Performed By: #### 2 39465 #### [facility],[address] [place] [address] 85227 Calcium [Mass/Vol] 8.1 mg/dL Low 8.5 - 10.1 [facility] Comment on above: Performed By: #### 2 94899 #### [facility],[address] [place], [place] [address] Chloride [Moles/Vol] 101 mmol/L Normal 98 - 107 [facility] Comment on above: Performed By: #### 2 60508 #### [facility],[address] [place], [place] [address] CMP with eGFR Normal [facility] Comment on above: Result Comment: COMP REHENSIVE METABOLIC PANEL Performed By: #### 2 89900 #### [facility],[address] [place], [place] [address] CO2 [Moles/Vol] 29.0 mmol/L Normal 21.0 - 32.0 [facility] Comment on above: Performed By: #### 2 47844 #### [facility],[address] [place], [place] [address] Creatinine [Mass/Vol] 0.80 mg/dL Normal 0.55 - 1.02 [facility] Comment on above: Performed By: #### 2 27722 #### [place] [id number] GFR/1.73 sq M.predicted among non-blacks MDRD (S/P/Bld) [Vol rate/Area] mL/min/{1.73_m2} Normal 60 - 999 [facility] Comment on above: Performed By: #### 2 83222 #### [facility],[address] [place] [address] Result Comment: ACCO RDING TO THE NATIONAL KIDNEY DISEASE EDUCATION PROGRAM(NKDE), A NORMAL eGFR IS A VALUE GREATER THAN OR EQUAL TO 60 ML/MIN/1.73 SQ METERS. CHRONIC KIDNEY DISEASE: <60mL/MIN/1.73 SQ METERS KIDNEY FAILURE: <15mL/MIN/1.73 SQ METERS THIS TEST SHOULD ONLY BE USED FOR PATIENTS 18 YEARS OF AGE AND OLDER. Globulin (S) [Mass/Vol] 5.3 g/dL High 1.5 - 3.8 [facility] Comment on above: Performed By: #### 2 54405 #### [facility],[address] [place] [address] 53936 Glucose [Mass/Vol] 98 mg/dL Normal 74 - 106 [facility] Comment on above: Performed By: #### 2 78691 #### [address] [address] Potassium [Moles/Vol] 4.2 mmol/L Normal 3.5 - 5.1 [facility] Comment on above: Performed By: #### 2 18586 #### [address] [address] Protein [Mass/Vol] 6.9 g/dL Normal 6.4 - 8.2 [facility] Comment on above: Performed By: #### 2 80222 #### [address] [address] Sodium [Moles/Vol] 136 mmol/L Normal 136 - 145 [facility] Comment on above: Performed By: #### 2 13594 #### [address] [address] Urea nitrogen [Mass/Vol] 12 mg/dL Normal 7 - 18 [facility] Comment on above: Performed By: #### 2 72625 #### [address] [address] MAGNESIUMon 09-20-2024 Magnesium [Mass/Vol] 1.7 mg/dL Low 1.8 - 2.4 [facility] Comment on above: Performed By: #### 2 72707 ####[facility],[address] [place] [address] BCIDon 09-18-2024 Acinetobacter michael-baumanii complex Not detected Normal Not Detected [facility] Comment on above: Order Comment: aer Performed By: #### B ANITHA #### [place] [address] Bacteroides fragilis Not detected Normal Not Detected [facility] Comment on above: Order Comment: aer Performed By: #### B ANITHA #### [place] [address] BCID Comment See Comment Normal [facility] Comment on above: Order Comment: aer [...] follow. Performed By: #### B ANITHA #### [place] [address] Mary Ann albicans Not detected Normal Not Detected [facility] Comment on above: Order Comment: aer Performed By: #### B ANITHA #### [place] [address] Mary Ann auris Not detected Normal Not Detected [facility] Comment on above: Order Comment: aer Performed By: #### B ANITHA #### [place] [address] Mary Ann glabrata Not detected Normal Not Detected [facility] Comment on above: Order Comment: aer Performed By: #### B ANITHA #### [place] [address] Mary Ann krusei Not detected Normal Not Detected [facility] Comment on above: Order Comment: aer Performed By: #### B ANITHA #### [place] [address] [place] parapsilosis Not detected Normal Not Detected [facility] Comment on above: Order Comment: aer Performed By: #### B ANITHA #### [place] [address] Mary Ann tropicalis Not detected Normal Not Detected [facility] Comment on above: Order Comment: aer Performed By: #### B ANITHA #### [place] [address] Cryptococcus neoformans-gattii Not detected Normal Not Detected [facility] Comment on above: Order Comment: aer Performed By: #### B ANITHA #### [place] [address] CTX-M (ESBL) Not Applicable Normal Not Detected [facility] Comment on above: Order Comment: aer Performed By: #### B ANITHA #### [place] [address] E. Coli Not detected Normal Not Detected [facility] Comment on above: Order Comment: aer Performed By: #### B ANITHA #### [place] [address] Enterobacter cloacae Complex Not detected Normal Not Detected [facility] Comment on above: Order Comment: aer Performed By: #### B ANITHA #### [place] [address] Enterobacterales Not detected Normal Not Detected [facility] Comment on above: Order Comment: aer Performed By: #### B ANITHA #### [place] [address] Enterococcus faecalis Not detected Normal Not Detected [facility] Comment on above: Order Comment: aer Performed By: #### B ANITHA #### [place] [address] Enterococcus faecium Not detected Normal Not Detected [facility] Comment on above: Order Comment: aer Performed By: #### B ANITHA #### [facility] [address] [place] [address] Haemophilus influenzae Not detected Normal Not Detected [facility] Comment on above: Order Comment: aer Performed By: #### B ANITHA #### [facility] [address] [place] [address] IMP (Carbapenemase) Not Applicable Normal Not Detected [facility] Comment on above: Order Comment: aer Performed By: #### B ANITHA #### [place] [address] Klebsiella aerogenes Not detected Normal Not Detected [facility] Comment on above: Order Comment: aer Performed By: #### B ANITHA #### [place] [address] Klebsiella oxytoca Not detected Normal Not Detected [facility] Comment on above: Order Comment: aer Performed By: #### B ANITHA #### [place] [address] Klebsiella pneumoniae group Not detected Normal Not Detected [facility] Comment on above: Order Comment: aer Performed By: #### B ANITHA #### [place] [address] KPC (Carbapenemase) Not Applicable Normal Not Detected [facility] Comment on above: Order Comment: aer Performed By: #### B ANITHA #### [place] [address] Listeria monocytogenes Not detected Normal Not Detected [facility] Comment on above: Order Comment: aer Performed By: #### B ANITHA #### [place] [address] MCR-1 (Colistin Resistance) Not Applicable Normal Not Detected [facility] Comment on above: Order Comment: aer Performed By: #### B ANITHA #### [place] [address] Mec A/C Detected Abnormal Not Detected [facility] Comment on above: Order Comment: aer Performed By: #### B ANITHA #### [place] [address] Mec A/C-MREJ (MRSA) Not Applicable Normal Not Detected [facility] Comment on above: Order Comment: aer Performed By: #### B ANITHA #### [place] [address] NDM (Carbapenemase) Not Applicable Normal Not Detected [facility] Comment on above: Order Comment: aer Performed By: #### B ANITHA #### [place] [address] Neisseria meningitidis (Encapsalated) Not detected Normal Not Detected [facility] Comment on above: Order Comment: aer Performed By: #### B ANITHA #### [place] [address] OXA-48 like (Carbapenemase) Not Applicable Normal Not Detected [facility] Comment on above: Order Comment: aer Performed By: #### B ANITHA #### [place] [address] Proteus Not detected Normal Not Detected [facility] Comment on above: Order Comment: aer Performed By: #### B ANITHA #### [place] [address] Pseudomonas aeruginosa Not detected Normal Not Detected [facility] Comment on above: Order Comment: aer Performed By: #### B ANITHA #### [place] [address] S. agalactiae Org specific cx Ql (Vag fld) Not detected Normal Not Detected [facility] Comment on above: Order Comment: aer Performed By: #### B ANITHA #### [place] [address] Salmonella species Not detected Normal Not Detected [facility] Comment on above: Order Comment: [id number] aer Performed By: #### B ANITHA #### [facility] [address] [place] [address] Serratia marcescens Not detected Normal Not Detected [facility] Comment on above: Order Comment: aer Performed By: #### B ANITHA #### [facility] [address] [place] [address]201 Staphylococcus Detected Abnormal Not Detected [facility] Comment on above: Order Comment: aer Performed By: #### B ANITHA #### [facility] [address] [place] [address] Staphylococcus aureus Not detected Normal Not Detected [facility] Comment on above: Order Comment: aer Result Comment: If S taphylococcus aureus is Detected, an Infectious Disease physician consult is required on identification. Performed By: #### B ANITHA #### [facility] [address] [place], [place] [address] Staphylococcus epidermidis Detected Abnormal Not Detected [facility] Comment on above: Order Comment: aer Performed By: #### B ANITHA #### [facility] [address] [place] [address] Staphylococcus lugdunensis Not detected Normal Not Detected [facility] Comment on above: Order Comment: aer Performed By: #### B ANITHA #### [address] [address] Stenotrophomonas maltophilia Not detected Normal Not Detected [facility] Comment on above: Order Comment: aer Performed By: #### B ANITHA #### [facility] [address] [place] [address]17 Streptococcus Not detected Normal Not Detected [facility] Comment on above: Order Comment: aer Performed By: #### B ANITHA #### [facility] [address] [place] [address]77 Streptococcus pneumoniae Not detected Normal Not Detected [facility] Comment on above: Order Comment: aer Performed By: #### B ANITHA #### [facility] [address] [place] [address] Streptococcus pyogenes Not detected Normal Not Detected [facility] Comment on above: Order Comment: aer Performed By: #### B ANITHA #### [facility] [address] [place] [address] Van A/B Not Applicable Normal Not Detected [facility] Comment on above: Order Comment: aer Performed By: #### B ANITHA #### [facility] [address] [place] [address] VIM (Carbapenemase) Not Applicable Normal Not Detected [facility] Comment on above: Order Comment: aer Performed By: #### B ANITHA #### [place] [address] C-REACTIVE PROTEINon 025 CRP 6.50 mg/dl High 0.00 - 0.90 [facility] Comment on above: Performed By: #### 2 42611 #### [facility],[address] [place] [address] CBC + DIFFon 09-17-2024 Baso # 0.02 x10EE3/UL Normal 0.00 - 0.10 [facility] Comment on above: Performed By: #### 2 98453 ####[facility],[address] [place] [address] Basophils/100 WBC (Bld) 0.2 % Normal 0.0 - 2.0 [facility] Comment on above: Performed By: #### 2 34262 ####[facility],[address] [place] [address] CBC + DIFF Normal [facility] Comment on above: Result Comment: CBC- COMPLETE BLOOD COUNT Performed By: #### 2 48916 ####[facility],[address] [place] [address] EO # 0.05 x10EE3/UL Normal 0.00 - 0.50 [facility] Comment on above: Performed By: #### 2 23885 ####[facility],[address] [place] [address] 31363 Eosinophils/100 WBC (Bld) 0.5 % Normal 0.0 - 7.0 [facility] Comment on above: Performed By: #### 2 21534 ####[facility],[address] [place] [address] Erythrocyte distribution width (RBC) [Ratio] 17.2 % High 12.0 - 15.6 [facility] Comment on above: Performed By: #### 2 09885 ####[facility],[address] [place], [place] [address] Hematocrit (Bld) [Volume fraction] 27.0 % Low 34.0 - 46.0 [facility] Comment on above: Performed By: #### 2 27644 ####[facility],[address] [place] [address] Hemoglobin (Bld) [Mass/Vol] 9.1 g/dL Low 12.0 - 16.0 [facility] Comment on above: Performed By: #### 2 32628 ####[facility],[address] [place] [address] 04958 Lymph # 1.13 x10EE3/UL Normal 0.80 - 2.80 [facility] Comment on above: Performed By: #### 2 56939 ####[facility],[address] [place] [address] 04123 Lymphocytes/100 WBC (Bld) 10.8 % Low 20.0 - 45.0 [facility] Comment on above: Performed By: #### 2 65954 ####[facility],[address] [place] [address] 09913 MANUAL DIFF N/A Normal [facility] Comment on above: Performed By: #### 2 00004 ####[facility],[address] [place] [address] 00884 MCH (RBC) [Entitic mass] 27 pg Normal 27 - 33 [facility] Comment on above: Performed By: #### 2 07600 ####[facility],[address] [place] [address] MCHC 34 X10 3 Normal 32 - 36 [facility] Comment on above: Performed By: #### 2 62537 ####[facility],[address] [place], [place] [address] MCV (RBC) [Entitic vol] 80 fL Normal 80 - 99 [facility] Comment on above: Performed By: #### 2 29586 ####[facility],[address] [place] [address] Lea # 0.95 x10EE3/UL Normal 0.20 - 1.00 [facility] Comment on above: Performed By: #### 2 83793 ####[facility],[address] [place] [address] MONOS % 9.1 % Normal 0.0 - 10.0 [facility] Comment on above: Performed By: #### 2 74534 ####[facility],[address] [place] [address] Morphology Stan (Bld) [Interp] N/A Normal [facility] Comment on above: Performed By: #### 2 07020 ####[facility],[address] [place] [address] Neut # 8.26 x10EE3/UL High 1.50 - 7.10 [facility] Comment on above: Performed By: #### 2 48830 ####[facility],[address] [place] [address] Neutrophils/100 WBC (Bld) 79.4 % High 46.0 - 76.0 [facility] Comment on above: Performed By: #### 2 42134 ####[facility],[address] [place] [address] PLATELET 225 x10EE3/UL Normal 150 - 450 [facility] Comment on above: Performed By: #### 2 55023 ####[facility],[address] [place] [address] 03163 Platelet mean volume (Bld) [Entitic vol] 9.1 fL Normal 6.6 - 10.5 [facility] Comment on above: Result Comment: AUTO MATED DIFFERENTIAL Performed By: #### 2 24585 ####[facility],[address] [place] [address] 36202 RBC 3.39 x 10EE6/UL Low 4.10 - 5.30 [facility] Comment on above: Performed By: #### 2 90726 ####[facility],[address] [place] [address] 72342 WBC 10.4 x 10EE3/UL Normal 4.5 - 10.8 [facility] Comment on above: Performed By: #### 2 97450 ####[facility],[address] [place] [address] 16239 CHEST 1 VIEWon 09-17-2024 CHEST 1 VIEW [place] [address] Patient: DALY EVANS Phone#: : 1985 Age: 39 Gender: F Pt. Type: ER Account: [id number] Location: [facility] Ordering: DONTE MEZA Exam Date: 09/17/2024/6:23 Family Phys: MAGGIE PUTNAM Charge Code: [id number] Physician: [place] Order #: [id number] Dose#: PROCEDURE: X-RAY CHEST 1 VIEW COMPARISON: [...] Berry MD on 09/17/2024 at 10:53 Normal [facility] CMP with eGFRon 09-17-2024 AGE 39 years Normal [facility] Comment on above: Performed By: #### 2 21305 #### [facility],[address] [place] [address] 04769 Albumin [Mass/Vol] 1.9 g/dL Low 3.4 - 5.0 [facility] Comment on above: Performed By: #### 2 94209 #### [facility],[address] [place] [address] 75219 Albumin/Globulin [Mass ratio] 0.4 {ratio} Low 0.9 - 1.6 [facility] Comment on above: Performed By: #### 2 52289 #### [facility],[address] [place] [address] 49982 ALK PHOS 82 U/L Normal 46 - 116 [facility] Comment on above: Performed By: #### 2 05848 #### [facility],[address] [place] [address] 38535 ALT [Catalytic activity/Vol] 68 U/L High 16 - 63 [facility] Comment on above: Performed By: #### 2 93304 #### [facility],[address] [place] [address] 36044 Anion gap [Moles/Vol] 11 mmol/L Normal 10 - 20 [facility] Comment on above: Performed By: #### 2 95326 #### [facility],[address] [place] [address] 07481 AST [Catalytic activity/Vol] 48 U/L High 13 - 39 [facility] Comment on above: Performed By: #### 2 02288 #### [facility],[address] [place] [address] 11074 B/C RATIO 22 ratio Normal 0 - 30 [facility] Comment on above: Performed By: #### 2 25935 #### [facility],[address] [place] [address] 90115 Bilirubin [Mass/Vol] 0.4 mg/dL Normal 0.2 - 1.0 [facility] Comment on above: Performed By: #### 2 55020 #### [facility],[address] [place] [address] 46120 Calcium [Mass/Vol] 8.1 mg/dL Low 8.5 - 10.1 [facility] Comment on above: Performed By: #### 2 84782 #### [facility],[address] [place] [address] 26949 Chloride [Moles/Vol] 101 mmol/L Normal 98 - 107 [facility] Comment on above: Performed By: #### 2 24752 #### [facility],[address] [place] [address] 56005 CMP with eGFR Normal [facility] Comment on above: Result Comment: COMP REHENSIVE METABOLIC PANEL Performed By: #### 2 93568 #### [facility],[address] [place] [address] 22203 CO2 [Moles/Vol] 27.6 mmol/L Normal 21.0 - 32.0 [facility] Comment on above: Performed By: #### 2 33342 #### [facility],[address] [place] [address] 27578 Creatinine [Mass/Vol] 0.90 mg/dL Normal 0.55 - 1.02 [facility] Comment on above: Performed By: #### 2 17447 #### [facility],[address] [place] [address] 16916 GFR/1.73 sq M.predicted among non-blacks MDRD (S/P/Bld) [Vol rate/Area] mL/min/{1.73_m2} Normal 60 - 999 [facility] Comment on above: Performed By: #### 2 26284 #### [facility],[address] [place] [address] 23030 Result Comment: ACCO RDING TO THE NATIONAL KIDNEY DISEASE EDUCATION PROGRAM(NKDE), A NORMAL eGFR IS A VALUE GREATER THAN OR EQUAL TO 60 ML/MIN/1.73 SQ METERS. CHRONIC KIDNEY DISEASE: <60mL/MIN/1.73 SQ METERS KIDNEY FAILURE: <15mL/MIN/1.73 SQ METERS THIS TEST SHOULD ONLY BE USED FOR PATIENTS 18 YEARS OF AGE AND OLDER. Globulin (S) [Mass/Vol] 5.2 g/dL High 1.5 - 3.8 [facility] Comment on above: Performed By: #### 2 70571 #### [facility],[address] [place] [address] 78598 Glucose [Mass/Vol] 139 mg/dL High 74 - 106 [facility] Comment on above: Performed By: #### 2 46789 #### [address] [address] Potassium [Moles/Vol] 3.2 mmol/L Low 3.5 - 5.1 [facility] Comment on above: Performed By: #### 2 35971 #### [facility],[address] [place] [address] 73663 Protein [Mass/Vol] 7.1 g/dL Normal 6.4 - 8.2 [facility] Comment on above: Performed By: #### 2 75424 #### [facility],[address] [place] [address] 95767 Sodium [Moles/Vol] 136 mmol/L Normal 136 - 145 [facility] Comment on above: Performed By: #### 2 48418 #### [facility],[address] [place] [address] 87500 Urea nitrogen [Mass/Vol] 20 mg/dL High 7 - 18 [facility] Comment on above: Performed By: #### 2 73515 #### [address] [address] CORONAVIRUS (SARS) ANTIGEN T ESTon 09-17-2024 EXTERNAL QC DONE? YES Normal [facility] Comment on above: Performed By: #### 2 36502 #### [facility],[address] [place] [address] 58122 INTERNAL CONTROL PASS Normal [facility] Comment on above: Performed By: #### 2 58877 #### [facility],[address] [place] [address] 99085 SARS ANTIGEN Negative Normal NORMAL: NEGATIVE [facility] Comment on above: Performed By: #### 2 06139 #### [facility],[address] [place] [address] 90917 SEND TO ? NO Normal [facility] Comment on above: Result Comment: SARS -CoV-2 THIS TEST IS BEING USED UNDER THE FDA EUA PROCEDURE. THIS ASSAY HAS BEEN VALIDATED AT [facility] FOR USE WITH NASAL AND NASOPHARYNGEAL SWAB [...] PUBLIC HEALTH AUTHORITIES. Performed By: #### 2 39155 #### [facility],[address] [place], [place] [id number] CT ABDOMEN/PELVIS Won 2024 CT ABDOMEN/PELVIS [place] [id number] Patient: DALY EVANS Phone#: : 1985 Age: 39 Gender: F Pt. Type: ER Account: [id number] Location: [facility] Ordering: DONTE MEZA Exam Date: 09/17/2024/5:25 Family Phys: MAGGIE NICEALFONSO Charge Code: [id number] Physician: [place] Order #: [id number] Dose#: 28.4 PROCEDURE: CT ABDOMEN/PELVIS WITH CONTRAST [...] 39 Gender: F Pt. Type: ER Account: [id number] Location: [facility] Ordering: DONTE MEZA Exam Date: 09/17/2024/5:25 Family Phys: MAGGIE PUTNAM Charge Code: [id number] Physician: [place] Order #: [id number] Dose#: 28.4 CONCLUSION: 1. Findings consistent with colitis. 2. Left-sided ostomy is present. Dictated by: Seda Berry MD on 09/17/2024 at 9:27 Approved by: Seda Berry MD on 09/17/2024 at 9:33 Normal [facility] CULTURE BLOOD [IRASEMA]on Microscopic examination of blood, culture CULTURE BLOOD [[place]] _BLOOD CULTURE_ [facility] SCANNED REPORT 09/24/24.1016.DNP.COMPLETE Normal [facility] Comment on above: Performed By: #### 2 63793 #### [facility],[address] [place] [address] Microscopic examination of blood, culture CULTURE BLOOD [[place]] _BLOOD CULTURE_ [facility] FOR SCANNED REPORT 09/21/24.1002.DNP.COMPLETE Normal [facility] Comment on above: Performed By: #### 2 44560 ####[facility],[address] [place] [address] CVFLURVon 09-17-2024 FLU A PCR Negative Normal Negative [facility] Comment on above: Result Comment: [place] s [id number] Performed By: #### C VFLURV #### [facility] [address] [place] [address] FLU B PCR Negative Normal Negative [facility] Comment on above: Result Comment: Note s [id number] Performed By: #### C VFLURV #### [facility] [address] [place] [address] 20799 RSV PCR Negative Normal Negative [facility] Comment on above: Result Comment: [place] [id number] Performed By: #### C VFLURV #### [facility] [address] [place] [address] 63008 SARS-CoV-2 (COVID-19) RNA LAUREANO+probe Ql (Unsp spec) Negative Normal Negative [facility] Comment on above: Result Comment: [place] [id number] This test has been authorized by FDA [...] results. Performed By: #### C VFLURV #### [address] [address] ED MED ADMINISTRATION DETAIL on 09-17-2024 ED MED ADMINISTRATION DETAIL Ceramic Chemist Medication Administration Record [address] [place] [address] [id number] 09/17/2024 Patient: DALY EVANS Sex: Female : [...] 05:04 Tasha Schafer R.N. 1 of 2 Ceramic Chemist Medication Ordered Medication Administration Date/Time Ondansetron IVP [...] Tasha Schafer R.N. 2 of 2 Normal [facility] ED NURSES CLINICAL NOTEon ED NURSES CLINICAL NOTE Nurse Narrative Nurse Clinical [address] [address] [id number] 09/17/2024 Patient: DALY EVANS Sex: Female : 1985 Age: 39y Primary Insurance: [employer] [employer] Policy Number: [id number] Subscriber: Other Disposition: Discharge to [facility] Disposition Decision Time: 07:40 09/17/2024 Departure Time: [...] on TPN with her PICC Line). 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 SEPSIS SCREEN: POSITIVE. SIRS [...] AM. -- 05:09/17/24 EDT Aranza Winn R.N. atorvastatin 40 mg tablet: 40 mg once a day every PM. -- 05:09/17/24 EDT Aranza Winn R.N. pantoprazole 40 mg tablet,delayed release: once a day every AM. -- 05:09/17/24 EDT Aranza Winn R.N. NovoLIN R Regular U-100 Insulin 100 unit/mL injection solution: 30 units once a day every AM. (into TPN bag prior to infusion.) -- 05:09/17/24 EDT Aranza Winn R.N. Lantus U-100 Insulin [...] with colostomy -- 04:40 09/17/24 EDT Vikki Hraris R.N. Cholecystectomy -- 04:40 09/17/24 EDT Vikki [...] factors identif (more content not included)... Normal [facility] ED ORDER SHEET (CPOE ONLY)on 09-17-2024 ED ORDER SHEET (CPOE ONLY) Order Sheet Order Sheet [address] [place] [address] [id number] 09/17/2024 Patient: DALY EVANS Sex: Female : 1985 Age: 39y MEASUREMENTS: Wt: 97.5 kg, Ht/Jean-Paul: 67.0 in, BMI: 33.67 ALLERGIES: No known drug allergies MEDICATION/IV/DRIP/FLUID ORDERS Order Description Priority Entered Acknowledged Completed IV NS 0.9 %1000 mL at 999 04:48 09/17/2024 04:49 05:08 mL/hr (NOW x1) Donte Meza D.O. 09/17/2024 09/17/2024 Tasha Sanchez R.N. REduardo. MORPHine IVP4 mg (NOW x1, 04:53 09/17/2024 [...] Stat 04:48 09/17/2024 04:49 09/17/2024 05:08 09/17/2024 [Ernest] # 1 Stat Renae Riggs Crystal Brenner, R.N. R.N. Blood Culture Stat 04:48 09/17/2024 04:49 09/17/2024 06:06 09/17/2024 [Ernest] # 2 Stat Renae Riggs Crystal Brenner, [...] 09/17/2024 Renae Riggs Crystal Brenner, R.N. R.N. DIAGNOSTIC STUDY ORDERS Order Description Priority Entered Acknowledged Completed Chest 1V Stat Stat 04:48 09/17/2024 04:49 05:09 3 of 4 Order Sheet Donte Meza D.O. 09/17/2024 09/17/2024 Tasha Sanchez R.N. RIrene Reason for Study: Pneumonia CT ABD/PEL w Cont Stat Stat 04:48 09/17/2024 04:49 06:06 Donte Meza D.O. 09/17/2024 09/17/2024 Tasha Sanchez R.N. R.N. Reason for Study: Abdominal Pain STAFF ORDERS Order Description Priority Entered Acknowledged Collected Completed Vital Signs every 30 04:48 09/17/2024 04:49 09/17/2024 05:09 09/17/2024 minutes Renae Riggs Crystal Brenner, R.N. RIrene Coffee Grower 04:48 09/17/2024 04:49 09/17/2024 05:09 09/17/2024 Renae Riggs Crystal Brenner, R.N. R.N. Oxygen titrate to 92% 04:48 09/17/2024 04:49 09/17/2024 05:09 09/17/2024 Renae Riggs Crystal Brenner, R.N. R.N. [Electronically signed by Donte Meza D.O. (09/17/2024 08:24 EDT)] 4 of 4 Normal [facility] ED PHYSICIAN CLINICAL REPORT on 09-17-2024 ED PHYSICIAN CLINICAL REPORT Narrative Physician Clinical Narrative [facility] [address] [address] [id number] 09/17/2024 Patient: DALY EVANS Sex: Female : 1985 Age: 39y Primary Insurance: [employer] [employer] Policy Number: [id number] Subscriber: Other Disposition: Discharge to [facility] Disposition Decision Time: 07:40 09/17/2024 Departure Time: [...] normal EDT (more content not included)... Normal [facility] ED [facility] 09-17-2024 ED [facility] [address] [place] [address] [id number] 09/17/2024 Patient: DALY EVANS Sex: Female : 1985 Age: 39y Facility Professional Category Item Description Code Code Quantity Fee Total Drugs Normal Saline 954528 1 $0.00 $0.00 1000cc (681038) Nurse/E/M EMERGENCY 505155 1 $0.00 $0.00 DEPT VISIT HIGH SEVERITYFUNCJ (79611-03) Nurse/IV/IM/Infusions Hydration 089036 3 $0.00 $0.00 additional hour (48017) Nurse/IV/IM/Infusions IVP additional 603236 3 $0.00 $0.00 push (89544) Nurse/IV/IM/Infusions IVP initial (58753) 962930 1 $0.00 $0.00 Nurse/Supplies Central [place] 415024 1 $0.00 $0.00 Dressing (976468) Grand $0.00 Total Providers 1 of 2 [facility] Donte Didur, D.O. Chief Complaint ABDOMINAL PAIN. Principal Diagnosis Generalized abdominal pain. (Postoperative abdominal pain). Vomiting with nausea. status post abdominal surgery with left-sided ostomy. ICD-10 Codes R10.84: Generalized abdominal pain R11.2: Nausea with vomiting, unspecified 2 of 2 Normal [facility] ED VISIT SUMMARYon ED VISIT SUMMARY Visit Overview Visit Overview [place] [address] [place] [address] [id number] 09/17/2024 Patient: DALY EVANS Sex: Female : [...] VOMITING WITH NAUSEA 4 of 4 Normal [facility] ED VITALS FLOW SHEETon 09-17 ED VITALS FLOW SHEET Vitals Vital Sign Flow Sheet [address] [address] [id number] 09/17/2024 Patient: DALY EVANS Sex: Female : [...] 139/87 94 107 3 of 3 Normal [facility] INFLUENZA VIRUS RAPID A/Bon 09-17-2024 INFLUENZA [...] TO THREE DAYS. RESULT CRITICAL? NO Normal [facility] Comment on above: Performed By: #### 2 76615 #### [place] [address] LACTATEon 09-17-2024 Lactate [Moles/Vol] 1.4 mmol/L Normal 0.4 - 2.0 [facility] Comment on above: Performed By: #### 2 06286 #### [place] [id number] LIPASEon 09-17-2024 Lipase [Catalytic activity/Vol] 38.0 U/L Normal 15.0 - 78.0 [facility] Comment on above: Result Comment: *PLE ASE NOTE THAT RANGES FOR LIPASE HAVE CHANGED OF 06/24/23 DUE TO AN ASSAY UPDATE BY THE CONTACT CENTER ASSOCIATE.THE NEW ASSAY RANGE IS 6-250 U/L, WITH A REFERENCE RANGE OF 16-77 U/L. Performed By: #### 2 06463 #### [facility],[address] [place], [place] [phone] SERUM QUALon 09-17 EXTERNAL QC DONE? YES Normal [facility] Comment on above: Performed By: #### 2 41295 ####[place] [id number] INTERNAL QC PASS Normal [facility] Comment on above: Performed By: #### 2 91576 ####[facility],[address] [place] [address] 38527 SER Negative Normal NEGATIVE [facility] Comment on above: Performed By: #### 2 47315 ####[facility],[address] [place], [place] [id number] RSVon 09-17-2024 RSV RSV NEGATIVE INTERNAL NEG QC PASS INTERNAL POS QC PASS EXTERNAL QC DONE? YES THIS TESTS IS INTENDED FOR IN VITRO DIAGNOSTIC USE TO AID IN THE DIAGNOSIS OF RESPIRATORY SYNCTYIAL VIRUS INFECTIONS IN AND PEDIATRIC PATIENTS UNDER THE AGE OF 5. IT IS RECOMMENDED THAT NEGATIVE TEST RESULTS BE CONFIRMED BY CELL CULTURE. Normal [facility] Comment on above: Performed By: #### 2 89560 #### [facility],[address] [place], [place] [id number] TROPONINon 09-17-2024 HS TROPONIN 7.5 pg/mL Normal 0.0 - 51.4 [facility] Comment on above: Performed By: #### 2 77821 #### [facility],[address] [place], [place] [id number] CBC + DIFFon 09-15-2024 Baso # 0.00 x10EE3/UL Normal 0.00 - 0.10 [facility] Comment on above: Performed By: #### 2 49587 #### [facility],[address] [place] [address] 88251 Basophils/100 WBC (Bld) 0.1 % Normal 0.0 - 2.0 [facility] Comment on above: Performed By: #### 2 43783 #### [facility],[address] [place] [address] 52074 CBC + DIFF Normal [facility] Comment on above: Result Comment: CBC- COMPLETE BLOOD COUNT Performed By: #### 2 08966 #### [facility],[address] [place] [address] 84675 EO # 0.01 x10EE3/UL Normal 0.00 - 0.50 [facility] Comment on above: Performed By: #### 2 47410 #### [facility],[address] [place] [address] Eosinophils/100 WBC (Bld) 0.3 % Normal 0.0 - 7.0 [facility] Comment on above: Performed By: #### 2 53627 #### [facility],[address] [place] [address] Erythrocyte distribution width (RBC) [Ratio] 17.5 % High 12.0 - 15.6 [facility] Comment on above: Performed By: #### 2 61796 #### [facility],[address] [place] [address] Hematocrit (Bld) [Volume fraction] 27.5 % Low 34.0 - 46.0 [facility] Comment on above: Performed By: #### 2 96242 #### [facility],[address] [place] [address] Hemoglobin (Bld) [Mass/Vol] 8.7 g/dL Low 12.0 - 16.0 [facility] Comment on above: Performed By: #### 2 08641 #### [facility],[address] [place] [address] Lymph # 0.62 x10EE3/UL Low 0.80 - 2.80 [facility] Comment on above: Performed By: #### 2 44142 #### [facility],[address] [place], [place] [id number] Lymphocytes/100 WBC (Bld) 13.7 % Low 20.0 - 45.0 [facility] Comment on above: Performed By: #### 2 01368 #### [facility],[address] [place] [address] MANUAL DIFF N/A Normal [facility] Comment on above: Performed By: #### 2 50610 #### [facility],[address] [place] [address] MCH (RBC) [Entitic mass] 25 pg Low 27 - 33 [facility] Comment on above: Performed By: #### 2 06553 #### [place] [address] MCHC 32 X10 3 Normal 32 - 36 [facility] Comment on above: Performed By: #### 2 92175 #### [place] [address] MCV (RBC) [Entitic vol] 80 fL Normal 80 - 99 [facility] Comment on above: Performed By: #### 2 40470 #### [place] [address] Lea # 0.17 x10EE3/UL Low 0.20 - 1.00 [facility] Comment on above: Performed By: #### 2 93652 #### [place] [address] MONOS % 3.8 % Normal 0.0 - 10.0 [facility] Comment on above: Performed By: #### 2 46638 #### [place] [address] Morphology Stan (Bld) [Interp] N/A Normal [facility] Comment on above: Performed By: #### 2 69671 #### [place] [address] Neut # 3.70 x10EE3/UL Normal 1.50 - 7.10 [facility] Comment on above: Performed By: #### 2 24281 #### [place] [address] Neutrophils/100 WBC (Bld) 82.2 % High 46.0 - 76.0 [facility] Comment on above: Performed By: #### 2 22145 #### [place] [address] PLATELET 272 x10EE3/UL Normal 150 - 450 [facility] Comment on above: Performed By: #### 2 82108 #### [facility],[address] [place] [address] 026[address] Platelet mean volume (Bld) [Entitic vol] 8.2 fL Normal 6.6 - 10.5 [facility] Comment on above: Result Comment: AUTO MATED DIFFERENTIAL Performed By: #### 2 67608 #### [facility],[address] [place] [address] 52523 RBC 3.43 x 10EE6/UL Low 4.10 - 5.30 [facility] Comment on above: Performed By: #### 2 57418 #### [facility],[address] [place] [address] 74387 WBC 4.5 x 10EE3/UL Normal 4.5 - 10.8 [facility] Comment on above: Performed By: #### 2 00450 #### [facility],[address] [place], [place] [id number] CMP with eGFRon 09-15-2024 AGE 39 years Normal [facility] Comment on above: Performed By: #### 2 08660 #### [facility],[address] [place] [address] 02137 Albumin [Mass/Vol] 1.9 g/dL Low 3.4 - 5.0 [facility] Comment on above: Performed By: #### 2 55067 #### [facility],[address] [place] [address] 92019 Albumin/Globulin [Mass ratio] 0.3 {ratio} Low 0.9 - 1.6 [facility] Comment on above: Performed By: #### 2 12789 #### [facility],[address] [place] [address] 06330 ALK PHOS 82 U/L Normal 46 - 116 [facility] Comment on above: Performed By: #### 2 50847 #### [facility],[address] [place] [address] 74417 ALT [Catalytic activity/Vol] 27 U/L Normal 16 - 63 [facility] Comment on above: Performed By: #### 2 23836 #### [facility],[address] [place] [address] 48774 Anion gap [Moles/Vol] 13 mmol/L Normal 10 - 20 [facility] Comment on above: Performed By: #### 2 39163 #### [facility],[address] [place] [address] 43092 AST [Catalytic activity/Vol] 31 U/L Normal 13 - 39 [facility] Comment on above: Performed By: #### 2 23914 #### [facility],[address] [place] [address] 26054 B/C RATIO 14 ratio Normal 0 - 30 [facility] Comment on above: Performed By: #### 2 89318 #### [facility],[address] [place] [address] 55939 Bilirubin [Mass/Vol] 0.5 mg/dL Normal 0.2 - 1.0 [facility] Comment on above: Performed By: #### 2 87798 #### [facility],[address] [place] [address] 39789 Calcium [Mass/Vol] 8.0 mg/dL Low 8.5 - 10.1 [facility] Comment on above: Performed By: #### 2 67088 #### [facility],[address] [place] [address] 47646 Chloride [Moles/Vol] 100 mmol/L Normal 98 - 107 [facility] Comment on above: Performed By: #### 2 91381 #### [facility],[address] [place] [address] 36771 CMP with eGFR Normal [facility] Comment on above: Result Comment: COMP REHENSIVE METABOLIC PANEL Performed By: #### 2 55468 #### [facility],[address] [place] [address] 74072 CO2 [Moles/Vol] 24.6 mmol/L Normal 21.0 - 32.0 [facility] Comment on above: Performed By: #### 2 48313 #### [facility],[address] [place] [address] 69025 Creatinine [Mass/Vol] 1.06 mg/dL High 0.55 - 1.02 [facility] Comment on above: Performed By: #### 2 30444 #### [facility],[address] [place] [address] 39516 eGFR 57 ML/MINUTE Low 60 - 999 [facility] Comment on above: Performed By: #### 2 79581 #### [facility],[address] [place] [address] 90138 GFR/1.73 sq M.predicted among non-blacks MDRD (S/P/Bld) [Vol rate/Area] mL/min/{1.73_m2} Normal 60 - 999 [facility] Comment on above: Result Comment: ACCO RDING TO THE NATIONAL KIDNEY DISEASE EDUCATION PROGRAM(NKDE), A NORMAL eGFR IS A VALUE GREATER THAN OR EQUAL TO 60 ML/MIN/1.73 SQ METERS. CHRONIC KIDNEY DISEASE: <60mL/MIN/1.73 SQ METERS KIDNEY FAILURE: <15mL/MIN/1.73 SQ METERS THIS TEST SHOULD ONLY BE USED FOR PATIENTS 18 YEARS OF AGE AND OLDER. Performed By: #### 2 63742 #### [facility],[address] [place] [address] 77666 Globulin (S) [Mass/Vol] 5.5 g/dL High 1.5 - 3.8 [facility] Comment on above: Performed By: #### 2 45095 #### [facility],[address] [place] [address] 78596 Glucose [Mass/Vol] 105 mg/dL Normal 74 - 106 [facility] Comment on above: Performed By: #### 2 52771 #### [facility],[address] [place] [address] 43229 Potassium [Moles/Vol] 3.7 mmol/L Normal 3.5 - 5.1 [facility] Comment on above: Performed By: #### 2 98628 #### [facility],[address] [place] [address] 26035 Protein [Mass/Vol] 7.4 g/dL Normal 6.4 - 8.2 [facility] Comment on above: Performed By: #### 2 57869 #### [facility],[address] [place] [address] 42481 Sodium [Moles/Vol] 134 mmol/L Low 136 - 145 [facility] Comment on above: Performed By: #### 2 68244 #### [facility],[address] [place] [address] 11914 Urea nitrogen [Mass/Vol] 15 mg/dL Normal 7 - 18 [facility] Comment on above: Performed By: #### 2 68890 #### [facility],[address] [place] [address] 62314 CBC + DIFFon 09-13-2024 Baso # 0.02 x10EE3/UL Normal 0.00 - 0.10 [facility] Comment on above: Performed By: #### 2 39660 #### [facility],[address] [place] [address] 51560 Basophils/100 WBC (Bld) 0.3 % Normal 0.0 - 2.0 [facility] Comment on above: Performed By: #### 2 07202 #### [facility],[address] [place] [address] 50650 CBC + DIFF Normal [facility] Comment on above: Result Comment: CBC- COMPLETE BLOOD COUNT Performed By: #### 2 59983 #### [facility],[address] [place] [address] 79525 EO # 0.26 x10EE3/UL Normal 0.00 - 0.50 [facility] Comment on above: Performed By: #### 2 42531 #### [facility],[address] [place] [address] 09198 Eosinophils/100 WBC (Bld) 3.9 % Normal 0.0 - 7.0 [facility] Comment on above: Performed By: #### 2 19970 #### [facility],[address] [place], [place] [address] Erythrocyte distribution width (RBC) [Ratio] 17.0 % High 12.0 - 15.6 [facility] Comment on above: Performed By: #### 2 32313 #### [facility],[address] [place], [place] [address] Hematocrit (Bld) [Volume fraction] 29.3 % Low 34.0 - 46.0 [facility] Comment on above: Performed By: #### 2 72641 #### [facility],[address] [place], [place] [address] Hemoglobin (Bld) [Mass/Vol] 9.5 g/dL Low 12.0 - 16.0 [facility] Comment on above: Performed By: #### 2 26759 #### [facility],[address] [place] [address] 40658 Lymph # 1.51 x10EE3/UL Normal 0.80 - 2.80 [facility] Comment on above: Performed By: #### 2 35161 #### [facility],[address] [place], [place] [address] Lymphocytes/100 WBC (Bld) 22.6 % Normal 20.0 - 45.0 [facility] Comment on above: Performed By: #### 2 29288 #### [facility],[address] [place], [place] [address] MANUAL DIFF N/A Normal [facility] Comment on above: Performed By: #### 2 64952 #### [facility],[address] [place] [address] MCH (RBC) [Entitic mass] 26 pg Low 27 - 33 [facility] Comment on above: Performed By: #### 2 81666 #### [facility],[address] [place] [address] MCHC 33 X10 3 Normal 32 - 36 [facility] Comment on above: Performed By: #### 2 29153 #### [facility],[address] [place] [address] MCV (RBC) [Entitic vol] 81 fL Normal 80 - 99 [facility] Comment on above: Performed By: #### 2 89769 #### [facility],[address] [place] [address] Lea # 0.38 x10EE3/UL Normal 0.20 - 1.00 [facility] Comment on above: Performed By: #### 2 73437 #### [facility],[address] [place] [address] MONOS % 5.6 % Normal 0.0 - 10.0 [facility] Comment on above: Performed By: #### 2 39322 #### [facility],[address] [place] [address] Morphology Stan (Bld) [Interp] N/A Normal [facility] Comment on above: Performed By: #### 2 60986 #### [facility],[address] [place] [address] Neut # 4.54 x10EE3/UL Normal 1.50 - 7.10 [facility] Comment on above: Performed By: #### 2 77973 #### [facility],[address] [place] [address] Neutrophils/100 WBC (Bld) 67.6 % Normal 46.0 - 76.0 [facility] Comment on above: Performed By: #### 2 48158 #### [facility],[address] [place] [address] 26202 PLATELET 455 x10EE3/UL High 150 - 450 [facility] Comment on above: Performed By: #### 2 19860 #### [facility],[address] [place] [address] 66126 Platelet mean volume (Bld) [Entitic vol] 7.9 fL Normal 6.6 - 10.5 [facility] Comment on above: Result Comment: AUTO MATED DIFFERENTIAL Performed By: #### 2 93594 #### [facility],[address] [place] [address] 15166 RBC 3.63 x 10EE6/UL Low 4.10 - 5.30 [facility] Comment on above: Performed By: #### 2 41893 #### [facility],[address] [place] [address] 07148 WBC 6.7 x 10EE3/UL Normal 4.5 - 10.8 [facility] Comment on above: Performed By: #### 2 82997 #### [facility],[address] [place] [address] 58222 CMP with eGFRon 09-13-2024 AGE 39 years Normal [facility] Comment on above: Performed By: #### 2 03471 #### [facility],[address] [place] [address] 88806 Albumin [Mass/Vol] 2.1 g/dL Low 3.4 - 5.0 [facility] Comment on above: Performed By: #### 2 60381 #### [facility],[address] [place] [address] 69163 Albumin/Globulin [Mass ratio] 0.4 {ratio} Low 0.9 - 1.6 [facility] Comment on above: Performed By: #### 2 17289 #### [facility],[address] [place] [address] 75268 ALK PHOS 95 U/L Normal 46 - 116 [facility] Comment on above: Performed By: #### 2 89921 #### [facility],[address] [place] [address] 81903 ALT [Catalytic activity/Vol] 25 U/L Normal 16 - 63 [facility] Comment on above: Performed By: #### 2 12129 #### [facility],[address] [place] [address] 86455 Anion gap [Moles/Vol] 12 mmol/L Normal 10 - 20 [facility] Comment on above: Performed By: #### 2 52734 #### [facility],[address] [place] [address] 76951 AST [Catalytic activity/Vol] 20 U/L Normal 13 - 39 [facility] Comment on above: Performed By: #### 2 45707 #### [facility],[address] [place] [address] 15630 B/C RATIO 24 ratio Normal 0 - 30 [facility] Comment on above: Performed By: #### 2 39162 #### [facility],[address] [place] [address] 49423 Bilirubin [Mass/Vol] 0.4 mg/dL Normal 0.2 - 1.0 [facility] Comment on above: Performed By: #### 2 31691 #### [facility],[address] [place] [address] 81801 Calcium [Mass/Vol] 8.7 mg/dL Normal 8.5 - 10.1 [facility] Comment on above: Performed By: #### 2 61087 #### [facility],[address] [place] [address] 02757 Chloride [Moles/Vol] 102 mmol/L Normal 98 - 107 [facility] Comment on above: Performed By: #### 2 24707 #### [facility],[address] [place] [address] 70544 CMP with eGFR Normal [facility] Comment on above: Result Comment: COMP REHENSIVE METABOLIC PANEL Performed By: #### 2 55522 #### [facility],[address] [place] [address] 14540 CO2 [Moles/Vol] 27.5 mmol/L Normal 21.0 - 32.0 [facility] Comment on above: Performed By: #### 2 35984 #### [facility],[address] [place] [address] 50910 Creatinine [Mass/Vol] 0.87 mg/dL Normal 0.55 - 1.02 [facility] Comment on above: Performed By: #### 2 67721 #### [facility],[address] [place] [address] 63666 GFR/1.73 sq M.predicted among non-blacks MDRD (S/P/Bld) [Vol rate/Area] mL/min/{1.73_m2} Normal 60 - 999 [facility] Comment on above: Performed By: #### 2 92910 #### [facility],[address] [place] [address] 38271 Result Comment: ACCO RDING TO THE NATIONAL KIDNEY DISEASE EDUCATION PROGRAM(NKDE), A NORMAL eGFR IS A VALUE GREATER THAN OR EQUAL TO 60 ML/MIN/1.73 SQ METERS. CHRONIC KIDNEY DISEASE: <60mL/MIN/1.73 SQ METERS KIDNEY FAILURE: <15mL/MIN/1.73 SQ METERS THIS TEST SHOULD ONLY BE USED FOR PATIENTS 18 YEARS OF AGE AND OLDER. Globulin (S) [Mass/Vol] 5.8 g/dL High 1.5 - 3.8 [facility] Comment on above: Performed By: #### 2 87689 #### [facility],[address] [place] [address] 61824 Glucose [Mass/Vol] 74 mg/dL Normal 74 - 106 [facility] Comment on above: Performed By: #### 2 65560 #### [facility],[address] [place] [address] 50408 Potassium [Moles/Vol] 3.7 mmol/L Normal 3.5 - 5.1 [facility] Comment on above: Performed By: #### 2 37777 #### [facility],[address] [place] [address] 27036 Protein [Mass/Vol] 7.9 g/dL Normal 6.4 - 8.2 [facility] Comment on above: Performed By: #### 2 36181 #### [facility],[address] [place] [address] 22909 Sodium [Moles/Vol] 138 mmol/L Normal 136 - 145 [facility] Comment on above: Performed By: #### 2 37646 #### [facility],[address] [place] [address] 62186 Urea nitrogen [Mass/Vol] 21 mg/dL High 7 - 18 [facility] Comment on above: Performed By: #### 2 66465 #### [facility],[address] [place] [address] 70005 MAGNESIUMon 09-13-2024 Magnesium [Mass/Vol] 1.8 mg/dL Normal 1.8 - 2.4 [facility] Comment on above: Performed By: #### 2 05571 #### [facility],[address] [place] [address] 18164 CMP with eGFRon 09-10-2024 AGE 39 years Normal [facility] Comment on above: Performed By: #### 2 91034 ####[facility],[address] [place] [address] 86264 Albumin [Mass/Vol] 2.0 g/dL Low 3.4 - 5.0 [facility] Comment on above: Performed By: #### 2 75317 ####[facility],[address] [place] [address] 70291 Albumin/Globulin [Mass ratio] 0.4 {ratio} Low 0.9 - 1.6 [facility] Comment on above: Performed By: #### 2 93188 ####[facility],[address] [place] [address] 66846 ALK PHOS 93 U/L Normal 46 - 116 [facility] Comment on above: Performed By: #### 2 82206 ####[facility],[address] [place], [place] [address] ALT [Catalytic activity/Vol] 26 U/L Normal 16 - 63 [facility] Comment on above: Performed By: #### 2 95294 ####[facility],[address] [place] [address] Anion gap [Moles/Vol] 7 mmol/L Low 10 - 20 [facility] Comment on above: Performed By: #### 2 48198 ####[facility],[address] [place] [address] AST [Catalytic activity/Vol] 22 U/L Normal 13 - 39 [facility] Comment on above: Performed By: #### 2 61407 ####[facility],[address] [place] [address] B/C RATIO 19 ratio Normal 0 - 30 [facility] Comment on above: Performed By: #### 2 55787 ####[facility],[address] [place] [address] Bilirubin [Mass/Vol] 0.3 mg/dL Normal 0.2 - 1.0 [facility] Comment on above: Performed By: #### 2 05722 ####[facility],[address] [place], [place] [address] Calcium [Mass/Vol] 8.3 mg/dL Low 8.5 - 10.1 [facility] Comment on above: Performed By: #### 2 23936 ####[facility],[address] [place], [place] [address] Chloride [Moles/Vol] 103 mmol/L Normal 98 - 107 [facility] Comment on above: Performed By: #### 2 51693 ####[facility],[address] [place] [address] CMP with eGFR Normal [facility] Comment on above: Result Comment: COMP REHENSIVE METABOLIC PANEL Performed By: #### 2 15695 ####[place] [id number] CO2 [Moles/Vol] 30.7 mmol/L Normal 21.0 - 32.0 [facility] Comment on above: Performed By: #### 2 49173 ####[place] [address] Creatinine [Mass/Vol] 0.90 mg/dL Normal 0.55 - 1.02 [facility] Comment on above: Performed By: #### 2 65275 ####[facility],[address] [place] [address] GFR/1.73 sq M.predicted among non-blacks MDRD (S/P/Bld) [Vol rate/Area] mL/min/{1.73_m2} Normal 60 - 999 [facility] Comment on above: Performed By: #### 2 38212 ####[place] [address] Result Comment: ACCO RDING TO THE NATIONAL KIDNEY DISEASE EDUCATION PROGRAM(NKDE), A NORMAL eGFR IS A VALUE GREATER THAN OR EQUAL TO 60 ML/MIN/1.73 SQ METERS. CHRONIC KIDNEY DISEASE: <60mL/MIN/1.73 SQ METERS KIDNEY FAILURE: <15mL/MIN/1.73 SQ METERS THIS TEST SHOULD ONLY BE USED FOR PATIENTS 18 YEARS OF AGE AND OLDER. Globulin (S) [Mass/Vol] 5.7 g/dL High 1.5 - 3.8 [facility] Comment on above: Performed By: #### 2 49312 ####[address] [address] Glucose [Mass/Vol] 94 mg/dL Normal 74 - 106 [facility] Comment on above: Performed By: #### 2 51459 ####[address] [address] Potassium [Moles/Vol] 3.5 mmol/L Normal 3.5 - 5.1 [facility] Comment on above: Performed By: #### 2 79341 ####[facility],[address] [place] [address] 13149 Protein [Mass/Vol] 7.7 g/dL Normal 6.4 - 8.2 [facility] Comment on above: Performed By: #### 2 13030 ####[facility],[address] [place] [address] 29345 Sodium [Moles/Vol] 137 mmol/L Normal 136 - 145 [facility] Comment on above: Performed By: #### 2 88613 ####[facility],[address] [place] [address] 36073 Urea nitrogen [Mass/Vol] 17 mg/dL Normal 7 - 18 [facility] Comment on above: Performed By: #### 2 66861 ####[facility],[address] [place] [address] 72555 MAGNESIUMon 09-10-2024 Magnesium [Mass/Vol] 1.7 mg/dL Low 1.8 - 2.4 [facility] Comment on above: Performed By: #### 2 00995 #### [facility],[address] [place] [address] 95207 CBC + DIFFon 09-06-2024 Baso # 0.04 x10EE3/UL Normal 0.00 - 0.10 [facility] Comment on above: Performed By: #### 2 42043 #### [facility],[address] [place] [address] 79778 Basophils/100 WBC (Bld) 0.4 % Normal 0.0 - 2.0 [facility] Comment on above: Performed By: #### 2 58717 #### [facility],[address] [place] [address] 40792 CBC + DIFF Normal [facility] Comment on above: Result Comment: CBC- COMPLETE BLOOD COUNT Performed By: #### 2 06230 #### [place] [address] EO # 0.14 x10EE3/UL Normal 0.00 - 0.50 [facility] Comment on above: Performed By: #### 2 30529 #### [facility],[address] [place] [address] Eosinophils/100 WBC (Bld) 1.3 % Normal 0.0 - 7.0 [facility] Comment on above: Performed By: #### 2 28776 #### [place] [address] Erythrocyte distribution width (RBC) [Ratio] 18.0 % High 12.0 - 15.6 [facility] Comment on above: Performed By: #### 2 24703 #### [place] [address] Hematocrit (Bld) [Volume fraction] 27.9 % Low 34.0 - 46.0 [facility] Comment on above: Performed By: #### 2 16932 #### [place] [address] Hemoglobin (Bld) [Mass/Vol] 9.1 g/dL Low 12.0 - 16.0 [facility] Comment on above: Performed By: #### 2 58072 #### [place] [id number] Lymph # 1.68 x10EE3/UL Normal 0.80 - 2.80 [facility] Comment on above: Performed By: #### 2 05431 #### [place] [address] Lymphocytes/100 WBC (Bld) 16.1 % Low 20.0 - 45.0 [facility] Comment on above: Performed By: #### 2 71703 #### [place] [address] MANUAL DIFF N/A Normal [facility] Comment on above: Performed By: #### 2 55037 #### [facility],[address] [place], [place] [address] MCH (RBC) [Entitic mass] 27 pg Normal 27 - 33 [facility] Comment on above: Performed By: #### 2 42985 #### [facility],[address] [place] [address] MCHC 33 X10 3 Normal 32 - 36 [facility] Comment on above: Performed By: #### 2 18914 #### [facility],[address] [place] [address] MCV (RBC) [Entitic vol] 83 fL Normal 80 - 99 [facility] Comment on above: Performed By: #### 2 86779 #### [facility],[address] [place] [address] Lea # 0.87 x10EE3/UL Normal 0.20 - 1.00 [facility] Comment on above: Performed By: #### 2 62919 #### [facility],[address] [place] [address] MONOS % 8.4 % Normal 0.0 - 10.0 [facility] Comment on above: Performed By: #### 2 46437 #### [facility],[address] [place], [place] [address] Morphology Stan (Bld) [Interp] N/A Normal [facility] Comment on above: Performed By: #### 2 91490 #### [place] [address] Neut # 7.69 x10EE3/UL High 1.50 - 7.10 [facility] Comment on above: Performed By: #### 2 96611 #### [facility],[address] [place] [address] Neutrophils/100 WBC (Bld) 73.8 % Normal 46.0 - 76.0 [facility] Comment on above: Performed By: #### 2 64197 #### [facility],[address] [place], [place] [address] PLATELET 722 x10EE3/UL High 150 - 450 [facility] Comment on above: Performed By: #### 2 74028 #### [facility],[address] [place] [address] Platelet mean volume (Bld) [Entitic vol] 7.5 fL Normal 6.6 - 10.5 [facility] Comment on above: Result Comment: AUTO MATED DIFFERENTIAL Performed By: #### 2 04438 #### [facility],[address] [place] [address] RBC 3.37 x 10EE6/UL Low 4.10 - 5.30 [facility] Comment on above: Performed By: #### 2 26710 #### [place] [address] WBC 10.4 x 10EE3/UL Normal 4.5 - 10.8 [facility] Comment on above: Performed By: #### 2 06278 #### [facility],[address] [place] [address] CMP with eGFRon 09-06-2024 AGE 38 years Normal [facility] Comment on above: Performed By: #### 2 57012 ####[facility],[address] [place] [address] Albumin [Mass/Vol] 1.9 g/dL Low 3.4 - 5.0 [facility] Comment on above: Performed By: #### 2 88518 ####[place] [id number] Albumin/Globulin [Mass ratio] 0.3 {ratio} Low 0.9 - 1.6 [facility] Comment on above: Performed By: #### 2 13000 ####[facility],[address] [place], [place] [address] ALK PHOS 97 U/L Normal 46 - 116 [facility] Comment on above: Performed By: #### 2 02682 ####[facility],[address] [place], [place] [address] ALT [Catalytic activity/Vol] 29 U/L Normal 16 - 63 [facility] Comment on above: Performed By: #### 2 83510 ####[facility],[address] [place] [address] Anion gap [Moles/Vol] 9 mmol/L Low 10 - 20 [facility] Comment on above: Performed By: #### 2 03113 ####[facility],[address] [place] [address] AST [Catalytic activity/Vol] 28 U/L Normal 13 - 39 [facility] Comment on above: Performed By: #### 2 04872 ####[facility],[address] [place] [address] B/C RATIO 21 ratio Normal 0 - 30 [facility] Comment on above: Performed By: #### 2 89594 ####[facility],[address] [place] [address] Bilirubin [Mass/Vol] 0.3 mg/dL Normal 0.2 - 1.0 [facility] Comment on above: Performed By: #### 2 69526 ####[facility],[address] [place], [place] [address] Calcium [Mass/Vol] 8.3 mg/dL Low 8.5 - 10.1 [facility] Comment on above: Performed By: #### 2 55651 ####[facility],[address] [place], [place] [address] Chloride [Moles/Vol] 102 mmol/L Normal 98 - 107 [facility] Comment on above: Performed By: #### 2 99991 ####[facility],[address] [place], [place] [address] CMP with eGFR Normal [facility] Comment on above: Result Comment: COMP REHENSIVE METABOLIC PANEL Performed By: #### 2 55390 ####[facility],[address] [place] [address] CO2 [Moles/Vol] 29.5 mmol/L Normal 21.0 - 32.0 [facility] Comment on above: Performed By: #### 2 81905 ####[facility],[address] [place] [address] Creatinine [Mass/Vol] 0.84 mg/dL Normal 0.55 - 1.02 [facility] Comment on above: Performed By: #### 2 95237 ####[facility],[address] [place] [address] GFR/1.73 sq M.predicted among non-blacks MDRD (S/P/Bld) [Vol rate/Area] mL/min/{1.73_m2} Normal 60 - 999 [facility] Comment on above: Performed By: #### 2 76358 ####[facility],[address] [place] [address] Result Comment: ACCO RDING TO THE NATIONAL KIDNEY DISEASE EDUCATION PROGRAM(NKDE), A NORMAL eGFR IS A VALUE GREATER THAN OR EQUAL TO 60 ML/MIN/1.73 SQ METERS. CHRONIC KIDNEY DISEASE: <60mL/MIN/1.73 SQ METERS KIDNEY FAILURE: <15mL/MIN/1.73 SQ METERS THIS TEST SHOULD ONLY BE USED FOR PATIENTS 18 YEARS OF AGE AND OLDER. Globulin (S) [Mass/Vol] 6.3 g/dL High 1.5 - 3.8 [facility] Comment on above: Performed By: #### 2 40907 ####[facility],[address] [place] [address] Glucose [Mass/Vol] 137 mg/dL High 74 - 106 [facility] Comment on above: Performed By: #### 2 18456 ####[place] [address] Potassium [Moles/Vol] 3.8 mmol/L Normal 3.5 - 5.1 [facility] Comment on above: Performed By: #### 2 06270 ####[facility],[address] [place] [address] 76482 Protein [Mass/Vol] 8.2 g/dL Normal 6.4 - 8.2 [facility] Comment on above: Performed By: #### 2 90485 ####[facility],[address] [place] [address] 28518 Sodium [Moles/Vol] 137 mmol/L Normal 136 - 145 [facility] Comment on above: Performed By: #### 2 72359 ####[facility],[address] [place] [address] 43075 Urea nitrogen [Mass/Vol] 18 mg/dL Normal 7 - 18 [facility] Comment on above: Performed By: #### 2 13807 ####[facility],[address] [place] [address] 21120 MAGNESIUMon 09-06-2024 Magnesium [Mass/Vol] 2.0 mg/dL Normal 1.8 - 2.4 [facility] Comment on above: Performed By: #### 2 26773 ####[facility],[address] [place] [address] 70199 PHOSPHORUSon 09-06-2024 Phosphate [Mass/Vol] 3.6 mg/dL Normal 2.6 - 4.7 [facility] Comment on above: Performed By: #### 2 73404 #### [facility],[address] [place] [address] 57589 Culture, Blood (WB)on 2024 CUB Blood cultures x2, f rom two different sites No growth in 5 days. Normal [facility] Comment on above: Performed By: #### M 200.1000 ####[facility] [address] [place], [address] 12 Lead EKGon 08-20-2024 12 Lead EKG Normal [facility] Abdomen/Pelvis W IV Cont ONL Yon 08-20-2024 Abdomen/Pelvis W IV Cont ONLY Normal [facility] CBC W/Diff, Automatedon 07-29 STOMATOCYTE RARE Normal [facility] Comment on above: Performed By: #### L 100.0100, L700.6800, L500.4050, L501.2450, L505.5000 ####[facility] [address] [place], [address] Anisocytosis Ql (Bld) 2+ Normal [facility] Comment on above: Performed By: #### L 100.0100, L700.6800, L500.4050, L501.2450, L505.5000 ####[facility] [address] [place], [address] MICROCYTIC 1+ Normal [facility] Comment on above: Performed By: #### L 100.0100, L700.6800, L500.4050, L501.2450, L505.5000 ####[facility] [address] [place], [address] OVALOCYTE RARE [facility] Comment on above: Performed By: #### L 100.0100, L700.6800, L500.4050, L501.2450, L505.5000 ####[facility] [address] [place], [address] POLYCHROMASIA 2+ Normal [facility] Comment on above: Performed By: #### L 100.0100, L700.6800, L500.4050, L501.2450, L505.5000 ####[facility] [address] [place], [address] CTA Chst, Abd, Pel W and/or WOon 08-20-2024 CTA Chst, Abd, Pel W and/or WO Normal [facility] Comprehensive Metabolic Prof ilon 08-20-2024 Albumin [Mass/Vol] 3.0 g/dL Low 3.2-5.0 [facility] Comment on above: Performed By: #### L 100.0100, L700.6800, L500.4050, L501.2450, L505.5000 ####[facility] [address] [place], [address] Albumin/Globulin [Mass ratio] 0.5 {ratio} Low 0.9-2.4 [facility] Comment on above: Performed By: #### L 100.0100, L700.6800, L500.4050, L501.2450, L505.5000 ####[facility] [address] [place], [address] ALK P 98 U/L Normal 45-117 [facility] Comment on above: Performed By: #### L 100.0100, L700.6800, L500.4050, L501.2450, L505.5000 ####[facility] [address] [place], [address] ALT [Catalytic activity/Vol] 15 U/L Normal 13-56 [facility] Comment on above: Performed By: #### L 100.0100, L700.6800, L500.4050, L501.2450, L505.5000 ####[facility] [address] [place], [address] AST [Catalytic activity/Vol] 20 U/L Normal 15-37 [facility] Comment on above: Performed By: #### L 100.0100, L700.6800, L500.4050, L501.2450, L505.5000 ####[facility] [address] [place], [address] Bilirubin [Mass/Vol] 0.30 mg/dL Normal 0.20-1.00 [facility] Comment on above: Result Comment: For patients on eltrombopag therapy, use of Dimension [place] TBIL is not recommended. Performed By: #### L 100.0100, L700.6800, L500.4050, L501.2450, L505.5000 ####[facility] [address] [place], [address] BUN/CRE 10.9 RATIO Normal 10-20 [facility] Comment on above: Performed By: #### L 100.0100, L700.6800, L500.4050, L501.2450, L505.5000 ####[facility] [address] [place], [address] CA,Total 8.8 mg/dL Normal 8.5-10.1 [facility] Comment on above: Performed By: #### L 100.0100, L700.6800, L500.4050, L501.2450, L505.5000 ####[facility] [address] [place], [address] Chloride [Moles/Vol] 106 mmol/L Normal 98-107 [facility] Comment on above: Performed By: #### L 100.0100, L700.6800, L500.4050, L501.2450, L505.5000 ####[facility] [address] [place], [address] CO2 [Moles/Vol] 22.0 mmol/L Normal 21.0-32.0 [facility] Comment on above: Performed By: #### L 100.0100, L700.6800, L500.4050, L501.2450, L505.5000 ####[facility] [address] [place], [address] Creatinine [Mass/Vol] 1.29 mg/dL High 0.55-1.02 [facility] Comment on above: Result Comment: The validity of the calculated GFR GFRAA in patients over70 years has not been determined. Clinical correlation isessential. Performed By: #### L 100.0100, L700.6800, L500.4050, L501.2450, L505.5000 ####[facility] [address] [place], [address] ECRCL 71.07 ml/min Normal [facility] Comment on above: Performed By: #### L 100.0100, L700.6800, L500.4050, L501.2450, L505.5000 ####[facility] [address] [place], [address] EST GFR - AA 59 mL/min Low >60 [facility] Comment on above: Result Comment: Afri can Burmese GFR Calc Performed By: #### L 100.0100, L700.6800, L500.4050, L501.2450, L505.5000 ####[facility] [address] [place], [address] GAP 11 Normal 5-15 [facility] Comment on above: Performed By: #### L 100.0100, L700.6800, L500.4050, L501.2450, L505.5000 ####[facility] [address] [place], [address] GFR/1.73 sq M.predicted among non-blacks MDRD (S/P/Bld) [Vol rate/Area] 48 mL/min/{1.73_m2} Low >60 [facility] Comment on above: Result Comment: Non- GFR Calc Performed By: #### L 100.0100, L700.6800, L500.4050, L501.2450, L505.5000 ####[facility] [address] [place], [address] Globulin (S) [Mass/Vol] 5.6 g/dL High 2.2-4.2 [facility] Comment on above: Performed By: #### L 100.0100, L700.6800, L500.4050, L501.2450, L505.5000 ####[facility] [address] [place], [address] Glucose [Mass/Vol] 187 mg/dL High 74-106 [facility] Comment on above: Result Comment: Fast ing Glucose result greater than or equal to 126 mg/dLsuggests DIABETES MELLITUS per A.D.A. criteria. Performed By: #### L 100.0100, L700.6800, L500.4050, L501.2450, L505.5000 ####[facility] [address] [place], [address] Potassium [Moles/Vol] 3.6 mmol/L Normal 3.5-5.1 [facility] Comment on above: Performed By: #### L 100.0100, L700.6800, L500.4050, L501.2450, L505.5000 ####[facility] [address] [place], [address] Sodium [Moles/Vol] 139 mmol/L Normal 136-145 [facility] Comment on above: Performed By: #### L 100.0100, L700.6800, L500.4050, L501.2450, L505.5000 ####[facility] [address] [place], [address] T PROT 8.6 g/dL High 6.4-8.2 [facility] Comment on above: Performed By: #### L 100.0100, L700.6800, L500.4050, L501.2450, L505.5000 ####[facility] [address] [place], [address] Urea nitrogen [Mass/Vol] 14 mg/dL Normal 7-18 [facility] Comment on above: Performed By: #### L 100.0100, L700.6800, L500.4050, L501.2450, L505.5000 ####[facility] [address] [place], [address] Emergency Department Summary on 08-20-2024 Emergency Department Summary Normal [facility] Lactic Acidon 08-20-2024 Lactate [Moles/Vol] 2.2 mmol/L Invalid Interpretation Code 0.4-1.9 [facility] Comment on above: Order Comment: Y Result Comment: Crit ical Result(s) Called at: 06:12:44 08/20/2024 by:Rossana Kiser to Nina. Results read back by same. Performed By: #### L 503.6005 ####[facility] [address] [place], [address] Lipaseon 08-20-2024 Lipase [Catalytic activity/Vol] 26 U/L Low 73-393 [facility] Comment on above: Performed By: #### L 100.0100, L700.6800, L500.4050, L501.2450, L505.5000 ####[facility] [address] [place], [address] Partial Thromboplast Timeon 08-20-2024 aPTT Coag (Bld) [Time] 20.9 s Low 24.1-36.2 [facility] Comment on above: Performed By: #### L 300.3900, L300.4310 ####[facility] [address] [place], [address] ,Serum,hCG Quali.on 08-20-2024 HCG, SERUM QUAL Negative Normal [facility] Comment on above: Performed By: #### L 100.0100, L700.6800, L500.4050, L501.2450, L505.5000 ####[facility] [address] [place], [address] Prothrombin Time w/INRon INR Coag (PPP) [Relative time] 1.2 {INR} Normal [facility] Comment on above: Performed By: #### L 300.3900, L300.4310 ####[facility] [address] [place], [address] PT Coag (PPP) [Time] 14.9 s Normal 11.7-14.9 [facility] Comment on above: Performed By: #### L 300.3900, L300.4310 ####[facility] [address] [place], [address] Urinalysis, Completeon 08-20 BACTERIA 3+ /hpf Normal None Seen [facility] Comment on above: Order Comment: CLEAN CATCH Performed By: #### L 400.0001 ####[facility] [address] [place], [address] EPI,SQUAMOUS 0-5 SEEN Normal 5-10 [facility] Comment on above: Order Comment: CLEAN CATCH Performed By: #### L 400.0001 ####[facility] [address] [place], [address] RBC 0-5 SEEN Normal 0-5 [facility] Comment on above: Order Comment: CLEAN CATCH Performed By: #### L 400.0001 ####[facility] [address] [place], [address] Mucus Ql (Urine sed) 0 SEEN Normal [facility] Comment on above: Order Comment: CLEAN CATCH Performed By: #### L 400.0001 ####[facility] [address] [place], [address] WBC 0 SEEN Normal 0-5 [facility] Comment on above: Order Comment: CLEAN CATCH Performed By: #### L 400.0001 ####[facility] [address] [place], [address] Urine Drug Screen (VISTA)on 08-20-2024 AMPHETAMINES Negative Normal <1000 ng/mL [facility] Comment on above: Performed By: #### L 100.0100, L700.6800, L500.4050, L501.2450, L505.5000 ####[facility] [address] [place], [phone] BARBITIURATES Negative Normal < 200 ng/mL [facility] Comment on above: Performed By: #### L 100.0100, L700.6800, L500.4050, L501.2450, L505.5000 ####[facility] [address] [place] [address] BENZODIAZIPINE Negative Normal < 200 ng/mL [facility] Comment on above: Performed By: #### L 100.0100, L700.6800, L500.4050, L501.2450, L505.5000 ####[facility] [address] [place] [address] COCAINE Negative Normal < 300 ng/mL [facility] Comment on above: Performed By: #### L 100.0100, L700.6800, L500.4050, L501.2450, L505.5000 ####[facility] [address] [place] [address] ECSTACY Negative Normal < 500 ng/mL [facility] Comment on above: Performed By: #### L 100.0100, L700.6800, L500.4050, L501.2450, L505.5000 ####[facility] [address] [place] [address] METHADONE Negative Normal < 300 ng/mL [facility] Comment on above: Performed By: #### L 100.0100, L700.6800, L500.4050, L501.2450, L505.5000 ####[facility] [address] [place] [address] OPIATES Positive Abnormal < 300 ng/mL [facility] Comment on above: Performed By: #### L 100.0100, L700.6800, L500.4050, L501.2450, L505.5000 ####[facility] [address] [place], [address] PCP Negative Normal < 25 ng/mL [facility] Comment on above: Performed By: #### L 100.0100, L700.6800, L500.4050, L501.2450, L505.5000 ####[facility] [address] [place], [address] THC Negative Normal < 50 ng/mL [facility] Comment on above: Performed By: #### L 100.0100, L700.6800, L500.4050, L501.2450, L505.5000 ####[facility] [address] [place], [address] VISTA UDS PH 7 Normal [facility] Comment on above: Performed By: #### L 100.0100, L700.6800, L500.4050, L501.2450, L505.5000 ####[facility] [address] [place], [address] Emergency Department Summary on 08-16-2024 Emergency Department Summary Normal [facility] Foot min 3 Viewson 5 Foot min 3 Views Normal [facility] Comprehensive metabolic 2000 panelon 08-08-2024 Albumin [Mass/Vol] 3.8 g/dL Low 3.9 - 4.9 g/dL [facility] ALP [Catalytic activity/Vol] 109 U/L 34 - 123 U/L [facility] ALT [Catalytic activity/Vol] 13 U/L 7 - 38 U/L [facility] Anion gap [Moles/Vol] 12 mmol/L 8 - 15 mmol/L [facility] AST [Catalytic activity/Vol] 16 U/L 13 - 35 U/L [facility] Bilirubin [Mass/Vol] 0.3 mg/dL 0.2 - 1.3 mg/dL [facility] Calcium [Mass/Vol] 9.3 mg/dL 8.5 - 10. 2 mg/dL [facility] Chloride [Moles/Vol] 104 mmol/L 98 - 107 mmol/L [facility] CO2 [Moles/Vol] 23 mmol/L 22 - 30 mmol/L [facility] Creatinine [Mass/Vol] 1.01 mg/dL High 0.58 - 0.96 mg/dL [facility] GFR/1.73 sq M.predicted among non-blacks MDRD (S/P/Bld) [Vol rate/Area] 72 mL/min/{1.73_m2} - PINF [facility] Comment on above: Estimated Glomerular Filtration [...] [Mass/Vol] 85 mg/dL 74 - 99 mg/dL [facility] Comment on above: The [place] Diabete s Association (ADA) provides guidance for [...] Standards of Medical Care in Diabetes 2016, [place] [employer] Association. Diabetes Care. 2016.39(Suppl 1). Potassium [Moles/Vol] 4 mmol/L 3.7 - 5.1 mmol/L [facility] Protein [Mass/Vol] 8.1 g/dL High 6.3 - 8.0 g/dL [facility] Sodium [Moles/Vol] 139 mmol/L 136 - 144 mmol/L [facility] Urea nitrogen [Mass/Vol] 6 mg/dL Low 7 - 21 mg/dL [facility] Iron and Iron binding capaci ty panelon 02-12-2025 Iron [Mass/Vol] 19 ug/dL Low 41 - 186 ug/dL [facility] Iron binding capacity [Mass/Vol] 483 ug/dL High 232 - 386 ug/dL [facility] Iron/TIBC [Molar ratio] 3.9 % Low 15.0 - 57.0 % [facility] No Panel Informationon 08-08 Interpretation and review of laboratory results Abnormal [facility] CBC W Auto Differential pane l (Bld)on 08-07-2024 Basophils (Bld) [#/Vol] 0.06 10*3/uL [facility] Basophils/100 WBC (Bld) 1 % [facility] Differential cell count method Nom (Bld) Auto [facility] Eosinophils (Bld) [#/Vol] 0.19 10*3/uL [facility] Eosinophils/100 WBC (Bld) 3.3 % [facility] Erythrocyte distribution width (RBC) [Ratio] 19.2 % High 11.5 - 15.0 % [facility] Hematocrit (Bld) [Volume fraction] 31.5 % Low 36.0 - 46.0 % [facility] Hemoglobin (Bld) [Mass/Vol] 8.5 g/dL Low 11.5 - 15.5 g/dL [facility] Immature granulocytes (Bld) [#/Vol] 0.03 10*3/uL [facility] Immature granulocytes/100 WBC (Bld) 0.5 % [facility] Interpretation and review of laboratory results Abnormal [facility] Lymphocytes (Bld) [#/Vol] 1.04 10*3/uL [facility] Lymphocytes/100 WBC (Bld) 17.8 % [facility] MCH (RBC) [Entitic mass] 19.3 pg Low 26.0 - 34.0 pg [facility] MCHC (RBC) [Mass/Vol] 27 g/dL Low 30.5 - 36.0 g/dL [facility] MCV (RBC) [Entitic vol] 71.4 fL Low 80.0 - 100.0 fL [facility] Monocytes (Bld) [#/Vol] 0.4 10*3/uL [facility] Monocytes/100 WBC (Bld) 6.9 % [facility] Neutrophils (Bld) [#/Vol] 4.11 10*3/uL [facility] Neutrophils/100 WBC (Bld) 70.5 % [facility] Nucleated RBC (Bld) [#/Vol] NINF [facility] Nucleated RBC/100 WBC (Bld) [Ratio] 0 % /100 WBC [facility] Platelet mean volume (Bld) [Entitic vol] 9 fL 9.0 - 12.7 fL [facility] Platelets (Bld) [#/Vol] 602 10*3/uL High [facility] RBC (Bld) [#/Vol] 4.41 10*6/uL 3.90 - 5.2 0 m/uL [facility] WBC (Bld) [#/Vol] 5.83 10*3/uL [facility] HbA1c (Bld)on 08-07-2024 Average glucose Estimated from glycated hemoglobin (Bld) [Mass/Vol] 123 mg/dL [facility] Comment on above: eAG: (Estimated aver age glucose) is a calculated value from HgbA1c and is cash application representative of the average blood glucose level in the last 2-3 month period. HbA1c (Bld) [Mass fraction] 5.9 % High 4.3 - 5.6 % [facility] Comment on above: [place] Diabetes As sociation guidelines indicate that patients with HgbA1c in the range 5.7-6.4% are at increased risk for development of diabetes, and intervention by lifestyle modification may be beneficial. HgbA1c greater or equal to 6.5% is considered diagnostic of diabetes. Interpretation and review of laboratory results Abnormal [facility] 12 Lead EKGon 07-30-2024 12 Lead EKG Normal [facility] Basic Metabolic Profile (BMP )on 07-30-2024 Potassium [Moles/Vol] 2.7 mmol/L Invalid Interpretation Code 3.5-5.1 [facility] Comment on above: Result Comment: RESU LTS CALLED TO NONI 07/30/241705 Jackelyn Draper.REPORT READ BACK BY . SAME AMENDED REPORT 07/30/241705 K previously reported as: 2.7 *L mmol/L Performed By: #### L 100.0100, L700.6800, L500.2500, L300.3900, L300.4310 ####[facility] [address] [place], [address] CBC W/Diff, Automatedon 02-0 -2024 Absolute Lymph 1.10 X10 3/uL Normal 0.83-4.51 [facility] Comment on above: Performed By: #### L 100.0100, L700.6800, L500.2500, L300.3900, L300.4310 ####[facility] [address] [place], [address] Absolute Neut 8.0 X10 3/uL High 2.0-7.7 [facility] Comment on above: Performed By: #### L 100.0100, L700.6800, L500.2500, L300.3900, L300.4310 ####[facility] [address] [place], [address] Basophils/100 WBC (Bld) 0.6 % Normal 0-1 [facility] Comment on above: Performed By: #### L 100.0100, L700.6800, L500.2500, L300.3900, L300.4310 ####[facility] [address] [place], [address] Eosinophils/100 WBC (Bld) 1.6 % Normal 0-5 [facility] Comment on above: Performed By: #### L 100.0100, L700.6800, L500.2500, L300.3900, L300.4310 ####[facility] [address] [place], [address] Erythrocyte distribution width (RBC) [Ratio] 18.5 % High 11.6-14.6 [facility] Comment on above: Performed By: #### L 100.0100, L700.6800, L500.2500, L300.3900, L300.4310 ####[facility] [address] [place], [address] Hematocrit (Bld) [Volume fraction] 29.3 % Low 37-47 [facility] Comment on above: Performed By: #### L 100.0100, L700.6800, L500.2500, L300.3900, L300.4310 ####[facility] [address] [place], [address] Hemoglobin (Bld) [Mass/Vol] 8.3 g/dL Low 12.0-15.0 [facility] Comment on above: Performed By: #### L 100.0100, L700.6800, L500.2500, L300.3900, L300.4310 ####[facility] [address] [place], [address] IG% 0.400 Normal 0.0-0.9 [facility] Comment on above: Result Comment: IG% - Immature Granulocytes (promyelocytes, myelocytes andmetamyelocytes) > 1% indicates that a LEFT SHIFT is Present. Performed By: #### L 100.0100, L700.6800, L500.2500, L300.3900, L300.4310 ####[facility] [address] [place], [address] Lymphocytes/100 WBC (Bld) 11.0 % Low 19-41 [facility] Comment on above: Performed By: #### L 100.0100, L700.6800, L500.2500, L300.3900, L300.4310 ####[facility] [address] [place], [address] MCH (RBC) [Entitic mass] 19.6 pg Low 27.0-32.0 [facility] Comment on above: Performed By: #### L 100.0100, L700.6800, L500.2500, L300.3900, L300.4310 ####[facility] [address] [place], [address] MCHC (RBC) [Mass/Vol] 28.3 g/dL Low 32-36 [facility] Comment on above: Performed By: #### L 100.0100, L700.6800, L500.2500, L300.3900, L300.4310 ####[facility] [address] [place], [address] MCV (RBC) [Entitic vol] 69.1 fL Low 81-99 [facility] Comment on above: Performed By: #### L 100.0100, L700.6800, L500.2500, L300.3900, L300.4310 ####[facility] [address] [place], [address] Monocytes/100 WBC (Bld) 7.1 % Normal 0-10 [facility] Comment on above: Performed By: #### L 100.0100, L700.6800, L500.2500, L300.3900, L300.4310 ####[facility] [address] [place], [address] Neutrophils/100 WBC (Bld) 79.3 % High 47-70 [facility] Comment on above: Performed By: #### L 100.0100, L700.6800, L500.2500, L300.3900, L300.4310 ####[facility] [address] [place], [address] Nucleated RBC (Bld) [#/Vol] 0 10*3/uL Normal 0-5 [facility] Comment on above: Performed By: #### L 100.0100, L700.6800, L500.2500, L300.3900, L300.4310 ####[facility] [address] [place], [address] Platelet mean volume (Bld) [Entitic vol] 8.9 fL Normal 6.2-12.0 [facility] Comment on above: Performed By: #### L 100.0100, L700.6800, L500.2500, L300.3900, L300.4310 ####[facility] [address] [place], [address] Platelets (Bld) [#/Vol] 466 10*3/uL High 150-450 [facility] Comment on above: Performed By: #### L 100.0100, L700.6800, L500.2500, L300.3900, L300.4310 ####[facility] [address] [place], [address] RBC (Bld) [#/Vol] 4.24 10*6/uL Normal 4.2-5.4 [facility] Comment on above: Performed By: #### L 100.0100, L700.6800, L500.2500, L300.3900, L300.4310 ####[facility] [address] [place], [address] RDW SD 45.1 fl High 35.1-43.9 [facility] Comment on above: Performed By: #### L 100.0100, L700.6800, L500.2500, L300.3900, L300.4310 ####[facility] [address] [place], [address] WBC (Bld) [#/Vol] 10.0 10*3/uL Normal 4.4-11.0 [facility] Comment on above: Performed By: #### L 100.0100, L700.6800, L500.2500, L300.3900, L300.4310 ####[facility] [address] [place], [address] Chest 1 View (Portable)on Chest 1 View (Portable) Normal [facility] Emergency Department Summary on 07-30-2024 Emergency Department Summary Normal [facility] Ferritinon 07-30-2024 Ferritin [Mass/Vol] 11 ng/mL Normal 8-252 [facility] Comment on above: Performed By: #### L 503.6030, L503.6550 ####[facility] [address] [place], [address] Iron+Iron Binding Capacityon 07-30-2024 Iron [Mass/Vol] 12 ug/dL Low 50-170 [facility] Comment on above: Performed By: #### L 503.6030, L503.6550 ####[facility] [address] [place], [address] IRON SATURATION 2.5 Low 15.0-55.0 [facility] Comment on above: Performed By: #### L 503.6030, L503.6550 ####[facility] [address] [place], [address] TIBC 480 ug/dL High 250-450 [facility] Comment on above: Performed By: #### L 503.6030, L503.6550 ####[facility] [address] [place], [address] Partial Thromboplast Timeon 07-30-2024 aPTT Coag (Bld) [Time] 28.8 s Normal 24.1-36.2 [facility] Comment on above: Performed By: #### L 100.0100, L700.6800, L500.2500, L300.3900, L300.4310 ####[facility] [address] [place], [address] ,Serum,hCG Quali.on 07-30-2024 HCG, SERUM QUAL Negative Normal [facility] Comment on above: Performed By: #### L 100.0100, L700.6800, L500.2500, L300.3900, L300.4310 ####[facility] [address] [place], [address] Prothrombin Time w/INRon INR Coag (PPP) [Relative time] 1.1 {INR} Normal [facility] Comment on above: Performed By: #### L 100.0100, L700.6800, L500.2500, L300.3900, L300.4310 ####[facility] [address] [place], [place], [address] PT Coag (PPP) [Time] 14.0 s Normal 11.7-14.9 [facility] Comment on above: Performed By: #### L 100.0100, L700.6800, L500.2500, L300.3900, L300.4310 ####[facility] [address] [place], [place], [address] [facility]) [facility]AL[facility] EV[facility] ([id number]) 1985 F [facility] Date Time Provider Department 10/18/22 SHANDRA OKEEFE MMPRPO During your visit today, we recorded the following information about you: Allergies As of Date: 10/18/2022 (No Known Allergies) Date Reviewed: 09/27/2022 Reviewed by: Cassy Chicas LPN - Fully Assessed Reason for Visit: Chain Maker - Other [1241] Cmt: ECT Prescriptions as of 10/18/2022 - [...] Encounter Status:Closed by SHANDRA OKEEFE on 10/18/22 [facility] Telephone (MMPRPO) CRISTINADALY Sameer ( ) 1985 F T Date Time Provider Department 10/01/22 SHANDRA OKEEFE During your visit today, we recorded the following information about you: Shandra Okeefe RN 10/01/2022 12:20 PM Signed Faxed PA and associated clinicals to [facility] today at 1219. Awaiting response Allergies As of Date: 10/01/2022 (No Known Allergies) Date Reviewed: 09/27/2022 Reviewed by: Cassy Chicas LPN - Fully Assessed Reason for Visit: Chain Maker - Other [3603] Cmt: ECT Prescriptions as of 10/01/2022 - [...] by SHANDRA OKEEFE on 10/01/22 [facility] CNPN Telephone (MMPRPO) DALY EVANS ([id number]) 1985 F T Date Time Provider Department 10/01/22 SHANDRA OKEEFE MMPRPO During your visit today, we recorded the following information about you: Shandra Okeefe RN 10/22/2022 9:51 AM Addendum Faxed PA and associated clinicals to [facility] at [phone]. Awaiting response 10/15 Denial received form insurance [employer] and appeal sent 10/22 Spoke with insurance [employer] and the appeal is still pending a decision, patient updated on status Allergies As of Date: 10/01/2022 (No Known Allergies) Date Reviewed: 09/27/2022 Reviewed by: Cassy Chicas LPN - Fully Assessed Reason for Visit: Chain Maker - Other [6172] Cmt: ECT Prescriptions as of 12/07/2022 - [...] by SHANDRA OKEEFE on 10/01/22 [facility] CNOVon 09-30-2022 CNOV Office Visit (PSYRL) LOVERDALY ([id number]) 1985 F [facility] Date Time Provider Department 09/30/22 10:00 AM ESA VELÁSQUEZ During your visit today, we recorded the following information about you: ESA VELÁSQUEZ APRN.DUSTER TENDER 09/30/2022 11:54 AM Signed PSYCHIATRY ELECTROCONVULSIVE THERAPY INITIAL EVALUATION Patient was seen in person for an initial evaluation. All information is from patient report except when noted. This evaluation is NOT intended for forensic, disability or child custody purposes. AGE: [age] year old RACE: White REFERRAL SOURCE: Psychiatrist - Clayton Granados CNP ([facility]). Last visit 08/16/22 [...] The patient was born and raised in [place]. The patient completed Some college. The patient described their childhood as 'ideal'. The patient lives with a roommate in an house (owned by roommate). Feels safe. No guns The patient has 1 child (10yrs). Shared custody with father. 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 No disability. Service: None Legal: 18 - 2 charges of drug trafficking. No long-term time. No DUI/TRAVON Trauma/Abuse: Denies Psychosocial Supports: [...] psych meds in 2017 2) 2017 @ [place] for SI (pink slipped from crisis line) 3) 2021 - [place] for SI # of past suicide attempts and methods used:OD in 2017 Intensive outpatient program: 2018 at [facility] - didn't think it was helpful Residential treatment: Denies Prior Diagnosis: Anxiety Disorder, Bipolar Affective Disorder, Borderline Personality Disorder, and Panic Disorder Prior Provider: Followed by PCP Fredrick Boland. Referred to current psych provider. Therapist: Followed at [facility] (practice) by Evans. Monthly check-in Past psychotherapy experience: Extensive Current Engineering Executive: None Electroconvulsive therapy (ECT): Denies Transcranial magnetic [...] start on next (more content not included)... [facility] HISTORY PHYSICALon 3 HISTORY PHYSICAL HNO ID: [id number] Author: Esa Velásquez APRN.DUSTER TENDER Service: ? Author Type: Nurse Practitioner Type: [...] REFERRAL SOURCE: Psychiatrist - Clayton Granados CNP ([facility]). Last visit 08/16/22 [...] The patient was born and raised in [place]. The patient completed Some college. The patient described their childhood as 'ideal'. The patient lives with a roommate in an house (owned by roommate). Feels safe. No guns The patient has 1 child (10yrs). Shared custody with father. 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 No disability. Service: None Legal: 18 - 2 charges of drug trafficking. No long-term time. No DUI/TRAVON Trauma/Abuse: Denies Psychosocial Supports: [...] psych meds in 2017 2) 2017 @ [facility] for SI (pink slipped from crisis line) 3) 2021 - [place] for SI # of past suicide attempts and methods used:OD in 2017 Intensive outpatient program: 2018 at [facility] - didn't think it was helpful Residential treatment: Denies Prior Diagnosis: Anxiety Disorder, Bipolar Affective Disorder, Borderline Personality Disorder, and Panic Disorder Prior Provider: Followed by PCP Fredrick Boland. Referred to current psych provider. Therapist: Followed at [facility] (practice) by Evans. Monthly check-in Past psychotherapy experience: Extensive Current Engineering Executive: None Electroconvulsive therapy (ECT): Denies Transcranial magnetic [...] week and st (more content not included)... [facility] Telephone (PSYRL) DALY EVANS ([id number]) 1985 F T Date Time Provider Department 08/24/22 ARIELLA CORTES PSYRL During your visit today, we recorded the following information about you: Ariella Cortes RN 08/24/2022 1:42 PM Signed INTERNAL ([facility]) ECT Referral Received: 08/18/22 - scanned into [facility] From: Clayton Granados @ [facility] ECT Eval: TBD Left voicemail requesting callback in ECT office at [phone] to schedule ECT eval. Awaiting patient response. Ariella Cortes RN 08/30/2022 12:24 PM Addendum Scheduled ECT Eval scheduled on 09/30/22 @ 10am with Esa Velásquez Patient encouraged to contact RN Leather Production Worker at [phone] should any questions or concerns arise between now and then. Ariella Cortes RN 09/30/2022 3:22 PM Signed Patient to receive ECT and related care @ [facility]. MM ECT RN notified AND aware. INTERNAL ([facility]) ECT Referral Received: 08/18/22 - scanned into [facility] From: Clayton Granados @ [facility] ECT Eval: 09/30/22 [...] Encounter Status:Closed by ARIELLA CORTES on 08/24/22 [facility] TOX SCREEN ROUT URon 022 Amphetamines Confirm (U) [Mass/Vol] Negative Negative [facility] Barbiturates Urine Negative [facility] Benzodiazepines Urine Negative Negative [facility] Cannabinoids, Urine Positive Abnormal Negative [facility] Cocaine Ql (U) Negative Negative [facility] Ethanol (U) [Mass/Vol] <11 mg/dL [facility] Opiates Screen Ql (U) Negative Negative [facility] oxyCODONE cutoff Screen (U) [Mass/Vol] Negative Negative [facility] Phencyclidine Ql (U) Negative Negative [facility] HEP B SURFACE ANTIGENon 04-28 HEP B SURFACE ANTIGEN Non-Reactive Normal [facility] Comment on above: Result Comment: NONR EACTIVE - NEGATIVE FOR HEPATITIS B SURFACE ANTIGEN Performed By: #### H BSAG, HCVAB, HIV #### [address] [address] HEPATITIS C ABon 05-25-2021 HEPATITIS C AB Non-Reactive Normal [facility] Comment on above: Result Comment: NONR EACTIVE - <0.80 INDEX IS CONSIDERED NEGATIVE FOR IGG ANTIBODIES TO HCV. Performed By: #### M N, ALC #### [address] [address] HIV AG/AB COMBOon 05-25-2021 HIV AG/AB COMBO Non-Reactive Normal [facility] Comment on above: Result Comment: NONR EACTIVE - NEGATIVE FOR ANTIBODIES TO HIV-1 AND HIV-2 AND p24 ANTIGEN. Performed By: #### M N, ALC #### [address] [address] ALCOHOLon 05-21-2021 Ethanol [Mass/Vol] 169.0 mg/dL Normal [facility] Comment on above: Result Comment: < 3 mg/dl NONE DETECTED 50-100 mg/dl MAY SHOW SIGNS OF INTOXICATION 300-500 mg/dl COMATOSE LEVEL Performed By: #### M N, ALC #### [address] [address] CBC with AUTO DIFFon 021 BAS0 % 0.30 % Normal 0-2 [facility] Comment on above: Performed By: #### C BC, DIFF (MANUAL) #### [address] [address] Basophils (Bld) [#/Vol] 0.0 10*3/uL Normal 0-0.1 [facility] Comment on above: Performed By: #### C BC, DIFF (MANUAL) #### [address] [address] Eosinophils (Bld) [#/Vol] 0.0 10*3/uL Normal 0.0-1.80 [facility] Comment on above: Performed By: #### C BC, DIFF (MANUAL) #### [address] [address] Eosinophils/100 WBC (Bld) 0.1 % Normal 0-8 [facility] Comment on above: Performed By: #### C BC, DIFF (MANUAL) #### [address] [place] [address] GRAN # 11.7 K/uL High 2.2-9.1 [facility] Comment on above: Performed By: #### C BC, DIFF (MANUAL) #### [address] [address] GRAN % 79.6 % Normal 42-80 [facility] Comment on above: Performed By: #### C BC, DIFF (MANUAL) #### [address] [address] Hematocrit (Bld) [Volume fraction] 42.0 % Normal 37.0-47.0 [facility] Comment on above: Performed By: #### C BC, DIFF (MANUAL) #### [address] [address] Hemoglobin (Bld) [Mass/Vol] 14.3 g/dL Normal 12.0-16.0 [facility] Comment on above: Performed By: #### C BC, DIFF (MANUAL) #### [address] [address] Lymphocytes (Bld) [#/Vol] 2.2 10*3/uL Normal 1.0-4.0 [facility] Comment on above: Performed By: #### C BC, DIFF (MANUAL) #### [address] [address] Lymphocytes/100 WBC (Bld) 15.1 % Low 16-48 [facility] Comment on above: Performed By: #### C BC, DIFF (MANUAL) #### [address] [address] MCV (RBC) [Entitic vol] 93.2 fL Normal 80-97 [facility] Comment on above: Performed By: #### C BC, DIFF (MANUAL) #### [address] [address] MEAN CORPUSCULAR HGB 31.8 pg Normal 26.0-32.0 [facility] Comment on above: Performed By: #### C BC, DIFF (MANUAL) #### [address] [address] MEAN CORPUSCULAR HGB CONC 34.1 g/dL Normal 31.0-36.0 [facility] Comment on above: Performed By: #### C BC, DIFF (MANUAL) #### [facility] [address] [place] [address] Monocytes (Bld) [#/Vol] 0.7 10*3/uL Normal 0.1-1.7 [facility] Comment on above: Performed By: #### C BC, DIFF (MANUAL) #### [address] [place] [address] Monocytes/100 WBC (Bld) 4.9 % Normal 3-9 [facility] Comment on above: Performed By: #### C BC, DIFF (MANUAL) #### [address] [address] Platelet mean volume (Bld) [Entitic vol] 6.9 fL Normal 6.6-10.5 [facility] Comment on above: Performed By: #### C BC, DIFF (MANUAL) #### [address] [address] Platelets (Bld) [#/Vol] 418 10*3/uL Normal 140-450 [facility] Comment on above: Performed By: #### C BC, DIFF (MANUAL) #### [address] [address] RBC (Bld) [#/Vol] 4.51 10*6/uL Normal 4.20-5.50 [facility] Comment on above: Performed By: #### C BC, DIFF (MANUAL) #### [address] [address] RED CELL DISTRI WIDTH 13.0 % Normal 11.0-15.5 [facility] Comment on above: Performed By: #### C BC, DIFF (MANUAL) #### [address] [place] [address] WBC (Bld) [#/Vol] 14.7 10*3/uL High 4.0-11.0 [facility] Comment on above: Performed By: #### C BC, DIFF (MANUAL) #### [address] [address] COMPREHENSIVE METABOLIC PANE Derick 05-21-2021 Albumin [Mass/Vol] 3.5 g/dL Normal 3.4-5.0 [facility] Comment on above: Performed By: #### M N, ALC #### [facility] [address] [place] [address] Albumin/Globulin [Mass ratio] 0.9 {ratio} Low 1.1-1.8 [facility] Comment on above: Performed By: #### M N, ALC #### [facility] [address] [place] [address] ALP [Catalytic activity/Vol] 64 U/L Normal 45-117 [facility] Comment on above: Performed By: #### M N, ALC #### [facility] [address] [place] [address] ALT [Catalytic activity/Vol] 29 U/L Normal 12-78 [facility] Comment on above: Performed By: #### M N, ALC #### [facility] [address] [place] [address] Anion gap [Moles/Vol] 9.0 mmol/L Low 11-23 [facility] Comment on above: Performed By: #### M N, ALC #### [address] [place] [address] AST [Catalytic activity/Vol] 20 U/L Normal 15-37 [facility] Comment on above: Performed By: #### M N, ALC #### [address] [place] [address] Bilirubin [Mass/Vol] 0.3 mg/dL Normal 0.2-1.0 [facility] Comment on above: Performed By: #### M N, ALC #### [facility] [address] [place] [address] Calcium [Mass/Vol] 8.5 mg/dL Normal 8.5-10.1 [facility] Comment on above: Performed By: #### M N, ALC #### [facility] [address] [place] [address] Chloride [Moles/Vol] 107 mmol/L Normal 98-107 [facility] Comment on above: Performed By: #### M N, ALC #### [facility] [address] [place] [address] CO2 [Moles/Vol] 27.0 mmol/L Normal 21-32 [facility] Comment on above: Performed By: #### M N, ALC #### [facility] [address] [place] [address] Creatinine [Mass/Vol] 0.80 mg/dL Normal 0.55-1.02 [facility] Comment on above: Performed By: #### M N, ALC #### [address] [place] [address] GFR > 60.0 [facility] Comment on above: Performed By: #### M N, ALC #### [facility] [address] [place] [address] GFR AM > 60.0 [facility] Comment on above: Result Comment: THE NORMAL LEVEL OF GFR VARIES ACCORDING TO AGE, SEX, AND BODY SIZE. A GFR LEVEL OF LESS THAN 60 ML/MIN REPRESENTS LOSS OF THE ADULT LEVEL OF NORMAL KIDNEY FUNCTION. Performed By: #### M N, ALC #### [address] [place] [address] Globulin (S) [Mass/Vol] 4.2 g/dL Normal 2.5-4.6 [facility] Comment on above: Performed By: #### M N, ALC #### [address] [place] [address] Glucose [Mass/Vol] 114 mg/dL High 70-100 [facility] Comment on above: Performed By: #### M N, ALC #### [address] [place] [address] Potassium [Moles/Vol] 3.3 mmol/L Low 3.5-5.1 [facility] Comment on above: Performed By: #### M N, ALC #### [address] [place] [address] Protein [Mass/Vol] 7.7 g/dL Normal 6.0-8.3 [facility] Comment on above: Performed By: #### M N, ALC #### [address] [place] [address] Sodium [Moles/Vol] 140 mmol/L Normal 136-145 [facility] Comment on above: Performed By: #### M N, ALC #### [address] [place] [address] Urea nitrogen [Mass/Vol] 6.0 mg/dL Low 7-18 [facility] Comment on above: Performed By: #### M N, ALC #### [address] [place] [address] CPKon 05-21-2021 CPK 359 U/L High 26-192 [facility] Comment on above: Performed By: #### C PK #### [address] [place] [address] DIFFERENTIALon 05-21-2021 IMMATURE GRANS NONE SEEN Normal [facility] Comment on above: Performed By: #### C BC, DIFF (MANUAL) #### [facility] [address] [place] [address] PLATELET ESTIMATE NORMAL Normal [facility] Comment on above: Performed By: #### C BC, DIFF (MANUAL) #### [address] [place] [address] RBC morphology finding Nom (Bld) ESSENTIALLY NORMAL Normal [facility] Comment on above: Performed By: #### C BC, DIFF (MANUAL) #### [address] [place] [address] Band form neutrophils/100 WBC (Bld) 6 % Normal 0-10 [facility] Comment on above: Performed By: #### C BC, DIFF (MANUAL) #### [address] [place] [address] Eosinophils/100 WBC (Bld) 1 % Normal 0-8 [facility] Comment on above: Performed By: #### C BC, DIFF (MANUAL) #### [address] [place] [address] Lymphocytes/100 WBC (Bld) 11 % Low 16-48 [facility] Comment on above: Performed By: #### C BC, DIFF (MANUAL) #### [address] [place] [address] Monocytes/100 WBC (Bld) 6 % Normal 3-9 [facility] Comment on above: Performed By: #### C BC, DIFF (MANUAL) #### [address] [place] [address] Neutrophils/100 WBC (Bld) 76 % Normal 42-80 [facility] Comment on above: Performed By: #### C BC, DIFF (MANUAL) #### [address] [place] [address] TOTAL CELLS COUNTED 100 #CELLS Normal [facility] Comment on above: Performed By: #### C BC, DIFF (MANUAL) #### [address] [place] [address] ED.PDOCon 05-21-2021 ED.PDOC DALY EVANS [id number] Attending provider: HELLEN LAMAS ER [id number] Bebeto Tafoya 1985 35 DOS: 05/21/21 Hx/Exam [...] 06:56 (Bebeto Tafoya) 05/21/21 09:51 [place] Female [id number] Ordering physician: Yohana Bennett LOC:ER [id number] Attending physician: 1985 35 DO S: 05/21/21 Acc#: [id number] Exam/Proc: HEAD W/O CONTRAST Dept: COMPUTED TOMOGRAPHY EXAMINATION: CT OF THE HEAD WITHOUT JPSHNKFI18/25/2021 8:[address] HEAD/BRAIN WITHOUT CONTRAST COMPARISON: [...] 05/21/2021 8:33:15 AM EST Workstation ID : [id number] REPORT SIGNATURE ON FILE Electronically Signed Date/Time: 05/21/21832 Dictated Date/time: 05/21/21830 04/25/21 16:39 Patient has been sitting bed comfortable.She is being screened by crisis.At this time awaiting recommendations. Will sign patient out to p.m. physician (Yohana Bennett) 05/21/21 17:36 Patient assessed by crisis. They have asked for a pink slip on the patient based on presentation. I read through police report and notes to this point. [place] slip written based on patient self-harm, statement of wanti (more content not included)... Normal [facility] HCG URINEon 05-21-2021 Beta HCG ( test) Ql (U) Negative [facility] Comment on above: Order Comment: What Is Urine Source? Clean Catch [place] Performed By: #### H CGUR #### [address] [address] HEAD W/O CONTRASTon 05-21-20 HEAD W/O CONTRAST DALY EVANS [id number] Ordering physician: Yohana Bennett LOC:ER [id number] Attending physician: 1985 35 DO S: 05/21/21 Acc#: [id number] Exam/Proc: HEAD W/O CONTRAST Dept: COMPUTED TOMOGRAPHY EXAMINATION: CT OF THE HEAD WITHOUT KIQSFGFE00/25/2021 8:[address] HEAD/BRAIN WITHOUT CONTRAST COMPARISON: [...] 05/21/2021 8:33:15 AM EST Workstation ID : [id number] REPORT SIGNATURE ON FILE Electronically Signed Date/Time: 05/21/21832 Dictated Date/time: 05/21/21829 CC: Normal [facility] URINE DRUG SCREENon 05-21-20 21 AMPHETAMINES Positive Abnormal [facility] Comment on above: Order Comment: What Is Urine Source? Random Performed By: #### U DRGS #### [address] [address] Other Comment: URINE DRUG SCREENS ARE FOR [...] and can be ordered separately. BARBITURATES Negative [facility] Comment on above: Order Comment: What Is Urine Source? Random Performed By: #### U DRGS #### [address] [address] Other Comment: URINE DRUG SCREENS ARE FOR [...] and can be ordered separately. BENZODIAZEPINES Negative [facility] Comment on above: Order Comment: What Is Urine Source? Random Performed By: #### U DRGS #### [facility] [address] [place] [address] Other Comment: URINE DRUG SCREENS ARE FOR [...] and can be ordered separately. COCAINE Negative Normal [facility] Comment on above: Order Comment: What Is Urine Source? Random Performed By: #### U DRGS #### [facility] [address] [place] [address] Other Comment: URINE DRUG SCREENS ARE FOR [...] and can be ordered separately. METHADONE Negative [facility] Comment on above: Order Comment: What Is Urine Source? Random Performed By: #### U DRGS #### [address] [address] Other Comment: URINE DRUG SCREENS ARE FOR [...] and can be ordered separately. OPIATES Negative [facility] Comment on above: Order Comment: What Is Urine Source? Random Performed By: #### U DRGS #### [facility] [address] [place] [address] Other Comment: URINE DRUG SCREENS ARE FOR [...] and can be ordered separately. PHENCYCLIDINE Negative [facility] Comment on above: Order Comment: What Is Urine Source? Random Performed By: #### U DRGS #### [address] [address] Other Comment: URINE DRUG SCREENS ARE FOR [...] and can be ordered separately. THC Negative [facility] Comment on above: Order Comment: What Is Urine Source? Random Performed By: #### U DRGS #### [facility] [address] [place] [address] Other Comment: URINE DRUG SCREENS ARE FOR [...] DRG SCREEN CUT OFF SEE BELOW Normal [facility] Comment on above: Order Comment: What Is Urine Source? Random Performed By: #### U DRGS #### [address] [address] Other Comment: URINE DRUG SCREENS ARE FOR [...] n 05-21-2021 WRIST-LEFT CMPL MIN 3 VIEWS LAURA EVANSICA A Female [id number] Ordering physician: Yohana Bennett LOC:ER [id number] Attending physician: 1985 35 DO S: 05/21/21 [facility]#: [id number] Exam/Proc: WRIST-LEFT CMPL MIN 3 VIEWS Dept: [...] osseous process demonstrated. Electronically signed By Sam aWlton DO 05/21/2021 8:50:09 AM EST Workstation ID : [id number] REPORT SIGNATURE ON FILE Electronically Signed Date/Time: 05/21/2150 Dictated Date/time: 05/21/21 0843 CC: [facility] XR Knee - left 4 Viewson IMPRESSION: Findings are suggestive of mild degenerative changes in the left knee. Director Camp: NANCY Transcribe Date/Time: Mar 12 2021 11:00A Dictated by : MATTY CASTELLON MD This examination was interpreted and the report reviewed and electronically signed by: MATTY CASTELLON MD on Mar 12 2021 11:01AM EST DIVISION OF RADIOLOGY * * *Final Report* [...] soft tissue swelling. [facility] * * *Final Report* * [...] mild degenerative changes in the left knee. Director Camp: NANCY Transcribe Date/Time: Mar 12 2021 11:00A Dictated by : MATTY CASTELLON MD This examination was interpreted and the report reviewed and electronically signed by: MATTY CASTELLON MD on Mar 12 2021 11:01AM EST [facility] Radiology Study observation (narrative) [facility] XR Knee - left 4 ViewsOrdere d By: Cc Provider on 03-12-2021 [facility] TS GELon 02-07-2018 TS GEL ABO Group: O Rh, Gel: POS Antibody Screen Gel: NEG Normal [facility] Comment on above: Performed By: #### T SGL ####[facility] [address] [place] [address] Basic Metabolic Panelon 01-25 Anion gap 3 molar conc 8 Normal [facility] Comment on above: Performed By: #### H EMDF, ESR, PT/AP, LACT3, QWNT, CRP2, BMP3 ####[address] [place], [place] Calcium mass conc 8.8 mg/dL Normal 8.4-10.4 [facility] Comment on above: Performed By: #### H EMDF, ESR, PT/AP, LACT3, QWNT, CRP2, BMP3 ####[address] [place], [place] CO2 molar conc 24 mmol/L Normal 22-30 [facility] Comment on above: Performed By: #### H EMDF, ESR, PT/AP, LACT3, QWNT, CRP2, BMP3 ####[address] [place], [place] Glucose mass conc 89 mg/dL Normal 70-100 [facility] Comment on above: Performed By: #### H EMDF, ESR, PT/AP, LACT3, QWNT, CRP2, BMP3 ####[address] Urea nitrogen mass conc 10 mg/dL Normal 7-20 [facility] Comment on above: Performed By: #### H EMDF, ESR, PT/AP, LACT3, QWNT, CRP2, BMP3 ####[address] [place], [place] Creatinine mass conc 0.67 mg/dL Normal 0.52-1.25 [facility] Comment on above: Performed By: #### H EMDF, ESR, PT/AP, LACT3, QWNT, CRP2, BMP3 ####[facility] [id number] [place], [place] GFR/1.73 sq M predicted among blacks MDRD vol rate/area (S/P/Bld) mL/min/{1.73_m2} Normal >60 [facility] Comment on above: Performed By: #### H EMDF, ESR, PT/AP, LACT3, QWNT, CRP2, BMP3 ####[address] [place] [address] GFR/1.73 sq M predicted among non-blacks MDRD vol rate/area (S/P/Bld) mL/min/{1.73_m2} Normal >60 [facility] Comment on above: Result Comment: Sour ce- MDRD equation with creatinine calibration to IDMS(NKDEP) eGFR not recommended for drug dose adjustment Performed By: #### H EMDF, ESR, PT/AP, LACT3, QWNT, CRP2, BMP3 ####[facility] [id number] [place] [address] Chloride molar conc 108 mmol/L High 98-107 [facility] Comment on above: Performed By: #### H EMDF, ESR, PT/AP, LACT3, QWNT, CRP2, BMP3 ####[address] Potassium molar conc 3.7 mmol/L Normal 3.5-5.1 [facility] Comment on above: Performed By: #### H EMDF, ESR, PT/AP, LACT3, QWNT, CRP2, BMP3 ####[facility] [address] [place] [address] Sodium molar conc 140 mmol/L Normal 137-[address] [facility] Comment on above: Performed By: #### H EMDF, ESR, PT/AP, LACT3, QWNT, CRP2, BMP3 ####[facility] [address] [address] C-Reactive Proteinon 018 CRP mass conc 9.4 mg/L High 0.0-6.0 [facility] Comment on above: Result Comment: . Performed By: #### H EMDF, ESR, PT/AP, LACT3, QWNT, CRP2, BMP3 ####[address] [address] Hemogram w/ Autodiffon 02-06 Abs Baso Cnt 0.0 10*3/uL Normal 0.0-0.2 [facility] Comment on above: Performed By: #### H EMDF, ESR, PT/AP, LACT3, QWNT, CRP2, BMP3 ####[address] Abs Neutrophile Cnt 4.8 10*3/uL Normal 1.8-7.0 [facility] Comment on above: Performed By: #### H EMDF, ESR, PT/AP, LACT3, QWNT, CRP2, BMP3 ####[address] Basophils/100 WBC Auto (Bld) 0.3 % Normal 0.0-2.0 [facility] Comment on above: Performed By: #### H EMDF, ESR, PT/AP, LACT3, QWNT, CRP2, BMP3 ####[address] Eosinophils Auto #/vol (Bld) 0.1 10*3/uL Normal 0.0-0.5 [facility] Comment on above: Performed By: #### H EMDF, ESR, PT/AP, LACT3, QWNT, CRP2, BMP3 ####[address] Eosinophils/100 WBC Auto (Bld) 1.7 % Normal 1.0-6.0 [facility] Comment on above: Performed By: #### H EMDF, ESR, PT/AP, LACT3, QWNT, CRP2, BMP3 ####[address] Erythrocyte distribution width Auto Ratio (RBC) 14.5 % Normal 11.5-14.5 [facility] Comment on above: Performed By: #### H EMDF, ESR, PT/AP, LACT3, QWNT, CRP2, BMP3 ####[address] Granulocytes/100 WBC (Bld) 62.0 % Normal 40.0-80.0 [facility] Comment on above: Performed By: #### H EMDF, ESR, PT/AP, LACT3, QWNT, CRP2, BMP3 ####[address] Hematocrit Auto Volume Fraction (Bld) 40.4 % Normal 35.0-47.0 [facility] Comment on above: Performed By: #### H EMDF, ESR, PT/AP, LACT3, QWNT, CRP2, BMP3 ####[address] [place], [place] Hemoglobin mass conc (Bld) 13.7 g/dL Normal 11.7-16.0 [facility] Comment on above: Performed By: #### H EMDF, ESR, PT/AP, LACT3, QWNT, CRP2, BMP3 ####[address] Lymphocytes Auto #/vol (Bld) 2.3 10*3/uL Normal 1.0-4.3 [facility] Comment on above: Performed By: #### H EMDF, ESR, PT/AP, LACT3, QWNT, CRP2, BMP3 ####[address] Lymphocytes/100 WBC Auto (Bld) 29.4 % Normal 20.0-40.0 [facility] Comment on above: Performed By: #### H EMDF, ESR, PT/AP, LACT3, QWNT, CRP2, BMP3 ####[address] MCH Auto Entitic mass (RBC) 31.2 pg Normal 26.0-34.0 [facility] Comment on above: Performed By: #### H EMDF, ESR, PT/AP, LACT3, QWNT, CRP2, BMP3 ####[address] [place], [place] MCHC Auto mass conc (RBC) 33.9 % Normal 32.0-36.0 [facility] Comment on above: Performed By: #### H EMDF, ESR, PT/AP, LACT3, QWNT, CRP2, BMP3 ####[address] [place], [place] MCV Auto Entitic volume (RBC) 92.2 fL Normal 79.0-98.0 [facility] Comment on above: Performed By: #### H EMDF, ESR, PT/AP, LACT3, QWNT, CRP2, BMP3 ####[address] [place], [place] Monocytes Auto #/vol (Bld) 0.5 10*3/uL Normal 0.0-0.8 [facility] Comment on above: Performed By: #### H EMDF, ESR, PT/AP, LACT3, QWNT, CRP2, BMP3 ####[address] [place], [place] Monocytes/100 WBC Auto (Bld) 6.6 % Normal 2.0-10.0 [facility] Comment on above: Performed By: #### H EMDF, ESR, PT/AP, LACT3, QWNT, CRP2, BMP3 ####[address] Platelet mean volume Auto Entitic volume (Bld) 7.8 fL Normal 7.4-10.4 [facility] Comment on above: Performed By: #### H EMDF, ESR, PT/AP, LACT3, QWNT, CRP2, BMP3 ####[address] Platelets Auto #/vol (Bld) 282 10*3/uL Normal 140-440 [facility] Comment on above: Performed By: #### H EMDF, ESR, PT/AP, LACT3, QWNT, CRP2, BMP3 ####[address] RBC Auto #/vol (Bld) 4.38 10*6/uL Normal 3.80-5.20 [facility] Comment on above: Performed By: #### H EMDF, ESR, PT/AP, LACT3, QWNT, CRP2, BMP3 ####[facility] [id number] [place], [place] WBC Auto #/vol (Bld) 7.8 10*3/uL Normal 3.6-10.7 [facility] Comment on above: Performed By: #### H EMDF, ESR, PT/AP, LACT3, QWNT, CRP2, BMP3 ####[address] [place], [place] Lactic Acidon 02-06-2018 Lactate molar conc 0.6 mmol/L Low 0.7-2.0 [facility] Comment on above: Performed By: #### H EMDF, ESR, PT/AP, LACT3, QWNT, CRP2, BMP3 ####[facility] [id number] [place], [place] Protime AND APTTon 8 INR Coag RelTime (PPP) 1.0 Normal 0.9-1.1 [facility] Comment on above: Result Comment: Soy [...] EMDF, ESR, PT/AP, LACT3, QWNT, CRP2, BMP3 ####[facility] [id number] [place], [place] Prothrombin time (PT) Coag time (PPP) 10.4 s Normal 9.0-12.0 [facility] Comment on above: Result Comment: . Performed By: #### H EMDF, ESR, PT/AP, LACT3, QWNT, CRP2, BMP3 ####[facility] [id number] [place], [place] aPTT Coag time (Bld) 24.1 s Normal 20.0-30.5 [facility] Comment on above: Result Comment: NOTE : The therapeutic time for Heparin anticoagulation,based on Xa activity inhibition, is an APTT of 46-80seconds. Performed By: #### H EMDF, ESR, PT/AP, LACT3, QWNT, CRP2, BMP3 ####[address] [place] [address] Sed Rateon 02-06-2018 Sed Rate 13 mm/h Normal 0-20 [facility] Comment on above: Performed By: #### H EMDF, ESR, PT/AP, LACT3, QWNT, CRP2, BMP3 ####[address] [place] [address] hCG Quantitativeon 8 hCG Quantitative < 2 Normal < 3 [facility] Comment on above: Performed By: #### H EMDF, ESR, PT/AP, LACT3, QWNT, CRP2, BMP3 ####[address] [place] [address] History And Physical-Dictate don 01-03-2018 Discharge Summary [facility], [place] [address]RBIODALY BR[facility]Y [facility] [id number] 1985ADMIT 12/08/2017DISCH 12/13/2017DISCHARGE SUMMARYREASON FOR ADMISSIONDaly Evans is a 32 years young, single female who was admitted asan emergency from [facility] on 12/08/2017 with history of increasingdepression and suicidal ideations. She reported multiple psychosocial issuesincluding recent break-up with a boyfriend, loss of adequate housing andunemployment since May,. She is also a single mother of a 5-year-old son. She was contemplating to take an overdose when she call [facility]'s crisis hotline, and following evaluation at [...] at bedtime, Seroquel 300 mg at bedtime, Bupougwt48 mg at bedtime and trazodone 100 mg [...] [facility] [place] [place].CONDITION AT TIME OF DISCHARGEImproved.LEOBARDO GEORGE, ONEAL 01/03/2018 11:07 [id number] 01/03/2018 11:21 CPP/MODLElectronically Signed By Zakiya George M.D. on 07 Jan 2018 17:56:48 GMT Normal [facility] History And Physical-Dictated [facility], [place] [address]DFJZDALY [facility]ADY [facility] [id number] 1985ADMIT 12/08/2017HISTORY AND PHYSICALIDENTIFICATION DATAJecharly Evans is a [id number] single, female who was admitted asan emergency from [facility] on 12/08/2017.CHIEF COMPLAINTI was [facility] [...] suicide by taking an overdose, she called [facility]'s crisis hotline, and [facility]. She reported that prior to thisadmission she was taking a number of medications as prescribed by nursepractitioner at [facility]. She was unable to identify all themedication and the strength.FAMILY HISTORYShe denied any knowledge of psychiatric illness in the family. However, shedid report that her only sibling, a brother, has Asperger syndrome andcurrently he lives at home with his parents.PAST PSYCHIATRIC HISTORYShe reported that she has been receiving outpatient treatment at [facility] off and on since the age of 13.She reported that she was admitted to [facility] in October 2017for 7 days following an overdose of trazodone, Prozac, and Lamictal.PERSONAL HISTORYShe is a 46-huwto-mgf young single, female, and mother of a [...] to 7 days.ZAKIYA GEORGE, ONEAL 12/09/2017 11:05 [id number] 12/09/2017 11:34 CPP/MODLElectronically Signed By Zakiya George M.D. on 11 Dec 2017 17:30:48 GMT Normal [facility] Protein [facility], [place] [address]HRIA DALY [facility] [id number] 1985DATE 12/12/2017PROGRESS Tyrel was seen individually and [...] with current treatmentplans.ZAKIYA GEORGE, ONEAL 12/12/2017 11:18 [id number] 12/12/2017 17:11 CPP/MODLElectronically Signed By Zakiya George M.D. on 14 Dec 2017 21:36:28 GMT Normal [facility] Lipid Panelon 12-09-2017 Cholesterol 168 mg/dL Normal 100-199 [facility] Comment on above: Performed By: #### T SH, LIPID ####Unless otherwise noted, all testing performed by [address] [id number]: [id number] Director: Willis Paulino M.D. Cholesterol in VLDL mass conc 21 mg/dL Normal 5-40 [facility] Comment on above: Performed By: #### T SH, LIPID ####Unless otherwise noted, all testing performed by [address] [id number]: [id number] Director: Willis Paulino M.D. Cholesterol to HDL Ratio 2.7 {ratio} Low 3.2-5.0 [facility] Comment on above: Result Comment: Fema le Coronary Heart Disease Risk Factor (CHDRF):Average risk= 4.41/2 Average risk= 3.32 times Average risk= 7.1 Performed By: #### T SH, LIPID ####Unless otherwise noted, all testing performed by [address] [id number]: [id number] Director: Willis Paulino M.D. HDL Cholesterol 62 mg/dL High 40-59 [facility] Comment on above: Performed By: #### T SH, LIPID ####Unless otherwise noted, all testing performed by [address] [id number]: [id number] Director: Willis Paulino M.D. LDL Cholesterol 86 mg/dL Normal 10-150 [facility] Comment on above: Performed By: #### T SH, LIPID ####Unless otherwise noted, all testing performed by [address] [id number]: [id number] Director: Willis Paulino M.D. Triglyceride 105 mg/dL Normal 25-120 [facility] Comment on above: Performed By: #### T SH, LIPID ####Unless otherwise noted, all testing performed by [address] [phone]: [id number] Director: Willis Paulino M.D. TSHon 12-09-2017 Thyroid stimulating hormone (TSH) 1.70 uIU/mL Normal 0.320-5.000 [facility] Comment on above: Result Comment: Samp les from patients routinely receiving high dose biotin therapy(100-300 mg/day) may show falsely decreased results. Please correlateclinically. Performed By: #### T SH, LIPID ####Unless otherwise noted, all testing performed by [address] [id number]: [id number] Director: Wilils Paulino M.D. Urinalysis, Routineon 2017 Bilirubin,Urine Negative Normal NEG;NEGATIV E [facility] Comment on above: Performed By: #### U A ####Unless otherwise noted, all testing performed by [address] [phone]: [id number] Director: Willis Paulino M.D. Blood,Urine Negative Normal NEG;NEGATIV E [facility] Comment on above: Performed By: #### U A ####Unless otherwise noted, all testing performed by [address] [id number]: [id number] Director: Willis Paulino M.D. Character Clear Normal [facility] Comment on above: Performed By: #### U A ####Unless otherwise noted, all testing performed by [address] [id number]: [id number] Director: Willis Paulino M.D. Ketone,Urine Negative Normal NEG;NEGATIV E [facility] Comment on above: Performed By: #### U A ####Unless otherwise noted, all testing performed by [address] [phone]: [id number] Director: Willis Paulino M.D. Leuk.Esterase,Urine Negative Normal Negative [facility] Comment on above: Performed By: #### U A ####Unless otherwise noted, all testing performed by [address] [id number]: [id number] Director: Willis Paulino M.D. Nitrite,Urine Negative Normal NEG;NEGATIV E [facility] Comment on above: Performed By: #### U A ####Unless otherwise noted, all testing performed by [address] [id number]: [id number] Director: Willis Paulino M.D. Protein,Urine Negative Normal NEG;NEGATIV E [facility] Comment on above: Performed By: #### U A ####Unless otherwise noted, all testing performed by [facility] [address] [id number]: [id number] Director: Willis Paulino M.D. Specific [place],Urine 1.006 Normal 1.003-1.029 [facility] Comment on above: Performed By: #### U A ####Unless otherwise noted, all testing performed by [address] [phone]: [id number] Director: Willis Paulino M.D. Squamous Epithelial 2 /HPF Normal 0-40 [facility] Comment on above: Performed By: #### U A ####Unless otherwise noted, all testing performed by [address] [id number]: [id number] Director: Willis Paulino M.D. Urine, color Yellow Normal [facility] Comment on above: Performed By: #### U A ####Unless otherwise noted, all testing performed by [address] [phone]: [id number] Director: Willis Paulino M.D. Urine, glucose presence Negative Normal NEG;NEGATIV E [facility] Comment on above: Performed By: #### U A ####Unless otherwise noted, all testing performed by [address] [phone]: [id number] Director: Willis Paulino M.D. Urine, leukocytes in sedmiment /[HPF] Normal 0-5 [facility] Comment on above: Performed By: #### U A ####Unless otherwise noted, all testing performed by [address] [id number]: [id number] Director: Willis Paulino M.D. Urine, pH 7.0 [pH] Normal 4.5-8.0 [facility] Comment on above: Performed By: #### U A ####Unless otherwise noted, all testing performed by [address] [id number]: [id number] Director: Willis Paulino M.D. Urobilinogen,Urine < 2.0 Normal <2 [facility] Comment on above: Performed By: #### U A ####Unless otherwise noted, all testing performed by [address] [phone]: [id number] Director: Willis Paulino M.D. Vital Signs Date Time Vital Sign Value Performing Clinician Facility 03-01-2025 10:40-0400 Body mass index (BMI) [Ratio] 28.97 kg/m2 Xochilt Gaston [employer]ERS SUPERVISOR.DUSTER TENDER Work Phone: [facility] 03-01-2025 10:40-0400 Body weight 83.92 kg Xochilt Gaston [employer] SUPERVISOR.DUSTER TENDER Work Phone: [facility] 03-01-2025 10:40-0400 Diastolic blood pressure 70 mm[Hg] Xochilt Collins n [employer] SUPERVISOR.DUSTER TENDER Work Phone: [facility] 03-01-2025 10:40-0400 Heart rate 102 /min Xochilt Gaston [employer] SUPERVISOR.DUSTER TENDER Work Phone: [facility] 03-01-2025 10:40-0400 Respiratory rate 16 /min Xochilt Gaston [employer] SUPERVISOR.DUSTER TENDER Work Phone: [facility] 03-01-2025 10:40-0400 SaO2% (BldA) [Mass fraction] 97 % Xochilt Gaston [employer] SUPERVISOR.DUSTER TENDER Work Phone: [facility] 03-01-2025 10:40-0400 Systolic blood pressure 118 mm[Hg] Xochilt Cohnman [employer] SUPERVISOR.DUSTER TENDER Work Phone: [facility] 01-28-2025 14:18-0400 Body mass index (BMI) [Ratio] 27.06 kg/m2 Chelle Odessa [employer]ERS SUPERVISOR.DUSTER TENDER Work Phone: [facility] 01-28-2025 14:18-0400 Body weight 78.38 kg Chelle Odessa [employer] SUPERVISOR.DUSTER TENDER Work Phone: [facility] 01-28-2025 14:18-0400 Diastolic blood pressure 64 mm[Hg] Chelle Odessa [employer]ERS SUPERVISOR.DUSTER TENDER Work Phone: [facility] 01-28-2025 14:18-0400 Heart rate 112 /min Chelle Odessa [employer] SUPERVISOR.DUSTER TENDER Work Phone: [facility] 01-28-2025 14:18-0400 Respiratory rate 14 /min Chelle Odessa [employer] SUPERVISOR.DUSTER TENDER Work Phone: [facility] 01-28-2025 14:18-0400 SaO2% (BldA) [Mass fraction] 98 % Chelle Odessa [employer] SUPERVISOR.DUSTER TENDER Work Phone: [facility] 01-28-2025 14:18-0400 Systolic blood pressure 112 mm[Hg] Chelle Odessa [employer] AND [employer]IERS SUPERVISOR.DUSTER TENDER Work Phone: [facility] 01-10-2025 13:57-0400 Body mass index (BMI) [Ratio] 29.09 kg/m2 Chelle Odessa [employer] SUPERVISOR.DUSTER TENDER Work Phone: [facility] 01-10-2025 13:57-0400 Body weight 84.28 kg Chelle Odessa [employer]ERS SUPERVISOR.DUSTER TENDER Work Phone: [facility] 01-10-2025 13:57-0400 Diastolic blood pressure 60 mm[Hg] Chelle Odessa [employer] AND [employer]ERS SUPERVISOR.DUSTER TENDER Work Phone: [facility] 01-10-2025 13:57-0400 Heart rate 84 /min Chelle Donaldo [employer]ERS SUPERVISOR.DUSTER TENDER Work Phone: [facility] 01-10-2025 13:57-0400 SaO2% (BldA) [Mass fraction] 99 % Chelle Saxena [employer] SUPERVISOR.DUSTER TENDER Work Phone: [facility] 01-10-2025 13:57-0400 Systolic blood pressure 90 mm[Hg] Chelle Saxena [employer] SUPERVISOR.DUSTER TENDER Work Phone: [facility] 01-09-2025 11:00-0400 Body mass index (BMI) [Ratio] 29.59 kg/m2 Research Coordinator [facility] 01-09-2025 11:00-0400 Body weight 85.73 kg Research Coordinator [facility] Comment on above: per patient report using home weight [facility] 12-31-2024 09:50-0400 Body height 170.2 cm Alyson Devine MD Work Phone: [facility] 12-31-2024 09:50-0400 Body mass index (BMI) [Ratio] 29.62 kg/m2 Alyson Devine MD Work Phone: [facility] 12-31-2024 09:50-0400 Body temperature 97.39 [degF] Alyson Devine MD Work Phone: [facility] 12-31-2024 09:50-0400 Body weight 85.8 kg Alyson Devine MD Work Phone: [facility] 12-31-2024 09:50-0400 Diastolic blood pressure 77 mm[Hg] Alyson Devine MD Work Phone: [facility] 12-31-2024 09:50-0400 Heart rate 111 /min Alyson Devine MD Work Phone: [facility] 12-31-2024 09:50-0400 Respiratory rate 18 /min Alyson Devine MD Work Phone: [facility] 12-31-2024 09:50-0400 SaO2% (BldA) [Mass fraction] 98 % Alyson Devine MD Work Phone: [facility] 12-31-2024 09:50-0400 Systolic blood pressure 106 mm[Hg] Alyson Caldwell Work Phone: [facility] 12-12-2024 19:56-0400 SaO2% (BldA) [Mass fraction] 98 % FREDRICK BOLAND [facility] Comment on above: Order Comment: Specimen Type: ARTERIAL B LOOD SPECIMENOrdering Facility: [facility] Address: [address] [place] [address] Performed By: #### A LLBG ####[facility] [id number] [address] 12-12-2024 18:09-0400 SaO2% (BldA) [Mass fraction] 99 % FREDRICK BOLAND [facility] Comment on above: Order Comment: Specimen Type: ARTERIAL B LOOD SPECIMENOrdering Facility: [facility] Address: [address] [place] [address] Performed By: #### A LLBG ####[facility] [id number] [place] [id number] [facility] 12-12-2024 14:39-0400 SaO2% (BldA) [Mass fraction] 100 % FREDRICK BOLAND [facility] Comment on above: Order Comment: Specimen Type: ARTERIAL B LOOD SPECIMENOrdering Facility: [facility] Address: [address] [place] [address] Performed By: #### A LLMG ####[facility] [id number] [place] [id number] [facility] 12-12-2024 14:06-0400 SaO2% (BldA) [Mass fraction] 100 % FREDRICK BOLAND [facility] Comment on above: Order Comment: Specimen Type: ARTERIAL B LOOD SPECIMENOrdering Facility: [facility] Address: [address] [place] [address] Performed By: #### A LLMG ####[facility] LABIA [id number] [place] [id number] [facility] 12-12-2024 13:31-0400 SaO2% (BldA) [Mass fraction] 100 % FREDRICK BOLAND [facility] Comment on above: Order Comment: Specimen Type: ARTERIAL B LOOD SPECIMENOrdering Facility: [facility] Address: [address] [place] [address] Performed By: #### A LLMG ####[facility] [id number] [place] [id number] [facility] 12-12-2024 11:41-0400 SaO2% (BldA) [Mass fraction] 100 % FREDRICK BOLAND [facility] Comment on above: Order Comment: Specimen Type: ARTERIAL B LOOD SPECIMENOrdering Facility: [facility] Address: [address] [place] [address] Performed By: #### A LLMG ####[facility] [id number] [place] [id number] [facility] 12-12-2024 10:00-0400 SaO2% (BldA) [Mass fraction] 99 % FREDRICK BOLAND [facility] Comment on above: Order Comment: Specimen Type: ARTERIAL B LOOD SPECIMENOrdering Facility: [facility] Address: [address] [place] [address] Performed By: #### A LLMG ####[facility] [id number] [place] [id number] [facility] 10-02-2024 15:02-0400 Body height 169.5 cm Jamie Ballesteros DO Work Phone: [facility] 10-02-2024 15:02-0400 Body mass index (BMI) [Ratio] 32.21 kg/m2 Jamie Ballesteros DO Work Phone: [facility] 10-02-2024 15:02-0400 Body temperature 97.81 [degF] Jamie Ramiresi DO Work Phone: [facility] 10-02-2024 15:02-0400 Body weight 92.53 kg Jamie Ramiresi DO Work Phone: [facility] 10-02-2024 15:02-0400 Diastolic blood pressure 72 mm[Hg] Jamie Ramiresi DO Work Phone: [facility] 10-02-2024 15:02-0400 Heart rate 114 /min Jamie Ramiresi DO Work Phone: [facility] 10-02-2024 15:02-0400 SaO2% (BldA) [Mass fraction] 99 % Jamie Ramiresi DO Work Phone: [facility] 10-02-2024 15:02-0400 Systolic blood pressure 101 mm[Hg] Jamie Ramiresi DO Work Phone: [facility] 09-19-2024 12:21-0400 Diastolic blood pressure 92 mm[Hg] Zaira Blackwood APRN.DUSTER TENDER Work Phone: [facility] 09-19-2024 12:21-0400 Heart rate 114 /min Zaira Blackwood APRN.DUSTER TENDER Work Phone: [facility] 09-19-2024 12:21-0400 SaO2% (BldA) [Mass fraction] 96 % Zaira Blackwood APRN.DUSTER TENDER Work Phone: [facility] 09-19-2024 12:21-0400 Systolic blood pressure 132 mm[Hg] Zaira Blackwood APRN.DUSTER TENDER Work Phone: [facility] 08-16-2024 09:09-0500 Body mass index (BMI) [Ratio] 33.21 kg/m2 Xochilt Gaston APRN.DUSTER TENDER Work Phone: [facility] 08-16-2024 09:09-0500 Body temperature 97.5 [degF] Xochilt Gaston APRN.DUSTER TENDER Work Phone: [facility] 08-16-2024 09:09-0500 Body weight 98.25 kg Xochilt Danisha [employer]ERS SUPERVISOR.DUSTER TENDER Work Phone: [facility] 08-16-2024 09:09-0500 Diastolic blood pressure 64 mm[Hg] Xochilt Stutzma n [employer] EM[employer]IERS SUPERVISOR.DUSTER TENDER Work Phone: [facility] 08-16-2024 09:09-0500 Heart rate 104 /min Xochilt Danisha [employer]ERS SUPERVISOR.DUSTER TENDER Work Phone: [facility] 08-16-2024 09:09-0500 SaO2% (BldA) [Mass fraction] 98 % Xochilt Danisha [employer] SUPERVISOR.DUSTER TENDER Work Phone: [facility] 08-16-2024 09:09-0500 Systolic blood pressure 106 mm[Hg] Xochilt Danisha [employer]ERS SUPERVISOR.DUSTER TENDER Work Phone: [facility] 08-07-2024 09:40-0500 Body height 172 cm Xochilt Danisha [employer]ERS SUPERVISOR.DUSTER TENDER Work Phone: [facility] 08-07-2024 09:40-0500 Body mass index (BMI) [Ratio] 33.12 kg/m2 Xochilt Danisha [employer] SUPERVISOR.DUSTER TENDER Work Phone: [facility] 08-07-2024 09:40-0500 Body weight 97.98 kg Xochilt Danisha [employer] EM[employer]IERS SUPERVISOR.DUSTER TENDER Work Phone: [facility] 08-07-2024 09:40-0500 Diastolic blood pressure 72 mm[Hg] Xochilt Stutzma n [employer] AND EM[employer]IERS SUPERVISOR.DUSTER TENDER Work Phone: [facility] 08-07-2024 09:40-0500 Heart rate 106 /min Xochilt Danisha [employer]ERS SUPERVISOR.DUSTER TENDER Work Phone: [facility] 08-07-2024 09:40-0500 SaO2% (BldA) [Mass fraction] 96 % Xochilt Danisha [employer] EM[employer]ERS SUPERVISOR.DUSTER TENDER Work Phone: [facility] 08-07-2024 09:40-0500 Systolic blood pressure 108 mm[Hg] Xochilt Gaston APRN.DUSTER TENDER Work Phone: [facility] 03-29-2022 12:23-0400 Body temperature 97.5 [degF] Fredrick Boland DO Work Phone: [facility] 03-29-2022 12:23-0400 Body weight 100.7 kg Fredrick Boland DO Work Phone: [facility] 03-29-2022 12:23-0400 Diastolic blood pressure 60 mm[Hg] Fredrick Boland DO Work Phone: [facility] 03-29-2022 12:23-0400 Heart rate 76 /min Fredrick Boland DO Work Phone: [facility] 03-29-2022 12:23-0400 Respiratory rate 16 /min Fredrick Boland DO Work Phone: [facility] 03-29-2022 12:23-0400 Systolic blood pressure 120 mm[Hg] Fredrick Boland DO Work Phone: [facility] 02-02-2022 09:00-0400 Body temperature 97.5 [degF] Fredrick Boland DO Work Phone: [facility] 02-02-2022 09:00-0400 Body weight 100.25 kg Fredrick Boland DO Work Phone: [facility] 02-02-2022 09:00-0400 Diastolic blood pressure 70 mm[Hg] Fredrick Boland DO Work Phone: [facility] 02-02-2022 09:00-0400 Heart rate 80 /min Fredrick Boland DO Work Phone: [facility] 02-02-2022 09:00-0400 Respiratory rate 16 /min Fredrick Boland DO Work Phone: [facility] 02-02-2022 09:00-0400 Systolic blood pressure 100 mm[Hg] Fredrick Bloand DO Work Phone: [facility] 10-23-2021 08:43-0400 Body weight 97.52 kg Xochilt Danisha [employer] EM[employer]ERS SUPERVISOR.DUSTER TENDER Work Phone: [facility] 10-23-2021 08:43-0400 Diastolic blood pressure 82 mm[Hg] Xochilt Stdanettema n [employer]ERS AND EMULSIFIERS SUPERVISOR.DUSTER TENDER Work Phone: [facility] 10-23-2021 08:43-0400 Heart rate 79 /min Xochilt Danisha [employer] EMULS[employer]IERS SUPERVISOR.DUSTER TENDER Work Phone: [facility] 10-23-2021 08:43-0400 Respiratory rate 16 /min Xohcilt Danisha [employer] AND EMULSIFIERS SUPERVISOR.DUSTER TENDER Work Phone: [facility] 10-23-2021 08:43-0400 SaO2% (BldA) [Mass fraction] 99 % Xochilt Cohnman [employer]ERS SUPERVISOR.DUSTER TENDER Work Phone: [facility] 10-23-2021 08:43-0400 Systolic blood pressure 122 mm[Hg] Xochilt Danisha [employer] AND EM[employer]IERS SUPERVISOR.DUSTER TENDER Work Phone: [facility] Encounters Encounter Date Encounter Type Care Provider Facility Start: 05-02-2025 End: 05-02-2025 ambulatory KARTHIK PREBI Facility:[facility] Start: 04-30-2025 End: 04-30-2025 ambulatory FREDRICK BOLAND Facility:[facility] Start: 04-22-2025 ambulatory FREDRICK BOLAND DO Facsammie lity:A Start: 04-10-2025 End: 04-10-2025 ambulatory XOCHILT GASTON Facility:[facility] Start: 04-06-2025 ambulatory Yoseph Fonseca Facili ty:[facility] Start: 04-01-2025 End: 04-01-2025 ambulatory XOCHILT GASTON Facility:[facility] Start: 03-26-2025 ambulatory Fredrick Boland Facilit y:[facility] Start: 03-14-2025 End: 03-26-2025 ambulatory Yoseph Fonseca Facility:[facility] Start: 03-07-2025 End: 03-07-2025 ambulatory XOCHILT GASTON Facility:[facility] Start: 03-06-2025 End: 03-08-2025 ambulatory Xochilt Gaston BENOIT Work Phone: [facility] Comment on above: Gabapentin Refill Request Start: 03-05-2025 End: 03-05-2025 E-mail encounter from caregiver Clayton J Bridgette LABOY Work Phone: Psychiatry Start: 03-05-2025 End: 03-05-2025 Patient encounter procedure Clayton Granados APRN.CNP Work Phone: Psychiatry Comment on above: Appointment Start: 03-01-2025 End: 03-11-2025 Telephone encounter Intestinal Trans Coord Main Work Phone: [facility] Comment on above: Anticoagulation - In itial Consult Start: 03-01-2025 End: 03-01-2025 Office outpatient visit 25 minutes Xochilt Lenzutzman KAIN.DUSTER TENDER Work Phone: [facility] Comment on above: Short bowel syndrome , 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); Hypokalemia; Malnutrition of moderate degree (HCC); Anticoagulation management encounter; 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) Start: 03-01-2025 End: 03-01-2025 ambulatory XOCHILTCARLOS GASTON Facility:[facility] Start: 02-28-2025 End: 03-01-2025 ambulatory Alyson Devine MD Work Phone: [facility] Comment on above: Attn Libia Start: 02-26-2025 End: 02-26-2025 [facility] Clayton Granados APRN.DUSTER TENDER Work Phone: Psychiatry Comment on above: Anxiety [...] Evaluation and management of inpatient Donte Espinal Facility:[facility] Start: 02-14-2025 End: 02-24-2025 ambulatory Yoseph Fonseca Facility:[facility] Start: 02-11-2025 End: 02-11-2025 ambulatory Fredrick Boland DO Work Phone: [facility] Start: 02-11-2025 End: 02-11-2025 Patient encounter procedure Fredrick Boland DO Work Phone: [facility] Comment on above: Referral Start: 02-11-2025 End: 02-12-2025 Telephone encounter Fredrick Yosef Krystian DO Work Phone: [facility] Comment on above: Consult Start: 02-08-2025 End: 02-08-2025 Telephone encounter Research Coordinator Clinical Research Comment on above: Research (IRB: [id number] Caring for OutPatiEnts after Acute Kidney Injury (COPE-JONATAN) trial PI: Dr. Juan Manuel Byrd ) Start: 02-07-2025 End: 02-07-2025 ambulatory [facility] Provider [facility] Comment on above: Flagyl for bacterial overgrowth Start: 02-07-2025 End: 02-07-2025 E-mail encounter from caregiver [facility] Start: 02-06-2025 End: 02-07-2025 ambulatory Alyson Devine MD Work Phone: Transplant Center Comment on above: Libia Start: 02-05-2025 End: 02-05-2025 ambulatory Fredrick Boland Facility:[facility] Start: 02-05-2025 End: 02-05-2025 ambulatory Chelle Saxena Facility:[facility] Start: 01-28-2025 End: 01-28-2025 Office outpatient visit 25 minutes Chelle Saxena APRN.DUSTER TENDER Work Phone: [facility] Comment on above: 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); Anticoagulation management encounter; Short bowel syndrome, 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; Malnutrition of moderate degree (HCC); Hypokalemia; Anemia, unspecified type; PICC (peripherally inserted central catheter) in place Start: 01-28-2025 End: 01-28-2025 ambulatory FREDRICK BOLAND Facility:[facility] Start: 01-28-2025 End: 01-28-2025 Telephone encounter Jigna HowellRn) [facility] Comment on above: Research (JOSEPH JONATAN / [id number]) Start: 01-24-2025 End: 01-24-2025 Telephone encounter Hpn Novelty Candy Maker Work Phone: Gastroenterology Start: 01-24-2025 End: 01-24-2025 ambulatory Yoseph Raymundo Facility:[facility] Start: 01-23-2025 End: 01-23-2025 Telephone encounter Hpn Novelty Candy Maker Work Phone: Gastroenterology Start: 01-22-2025 End: 01-22-2025 ambulatory Hpn Novelty Candy Maker Work Phone: Gastroenterology Start: 01-21-2025 End: 01-21-2025 ambulatory FREDRICK BOLAND Facility:[facility] Start: 01-17-2025 End: 01-17-2025 Telephone encounter Hpn Novelty Candy Maker Work Phone: Gastroenterology Start: 01-15-2025 End: 01-24-2025 Follow-up encounter Chelle Saxena APRN.DUSTER TENDER Work Phone: [facility] Comment on above: Results Start: 01-14-2025 End: 01-14-2025 Telephone encounter Chelle Saxena APRN.DUSTER TENDER Work Phone: [facility] Start: 01-11-2025 End: 01-11-2025 ambulatory CLAYTON GRANADOS Facility:[facility] Start: 01-11-2025 End: 01-11-2025 [facility] Clayton Granados APRN.DUSTER TENDER Work Phone: Psychiatry Comment on above: ELIJAH (generalized anx iety disorder) (Primary Dx); Anxiety about health; Bipolar II disorder (HCC); Encounter for long-term (current) use of medications; Insomnia due to other mental disorder Start: 01-10-2025 End: 01-10-2025 ambulatory FREDRICK BOLAND Facility:[facility] Start: 01-10-2025 End: 01-10-2025 Office outpatient visit 40 minutes Chelle Saxena APRN.DUSTER TENDER Work Phone: [facility] Comment on above: 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); Pain associated with surgical procedure; Removal of gilberto; Visit for suture removal; Screening for depression; Hypokalemia; Blood thinned due to long-term anticoagulant use Start: 01-10-2025 End: 01-10-2025 ambulatory FREDRICK BOLAND Facility:[facility] Start: 01-09-2025 End: 01-09-2025 Telephone encounter Research Coordinator Clinical Research Comment on above: Research (IRB: [id number] Caring for OutPatiEnts after Acute Kidney Injury (COPE-JONATAN) trial PI: Dr. Juan Manuel Byrd) Start: 01-08-2025 End: 01-10-2025 Telephone encounter Hpn Novelty Candy Maker Work Phone: Gastroenterology Comment on above: Critical Lab Start: 01-08-2025 End: 01-08-2025 [facility] Fredrick Boland Facility:[facility] Start: 01-07-2025 End: 01-07-2025 Telephone encounter Larry Provider [facility] Department Comment on above: Fabric Transition of Care Start: 01-04-2025 End: 01-04-2025 Telephone encounter Dayan Krueger [facility] Hematology/Oncology Start: 01-03-2025 End: 01-03-2025 Telephone encounter Dayan Krueger [facility] Hematology/Oncology Start: 01-02-2025 End: 01-02-2025 Telephone encounter Jigna HowellRn) [facility] Comment on above: Transition Of Care Start: 01-01-2025 End: 01-01-2025 Telephone encounter Fredrick Boland DO Work Phone: NOC Comment on above: Transition Of Care Start: 01-01-2025 [facility] Fredrick Boland Facilit y:[facility] Start: 12-31-2024 End: 12-31-2024 Patient encounter procedure Alysno Devine MD Work Phone: Transplant Center Comment on above: S/P exploratory lapa rotomy Start: 12-31-2024 End: 12-31-2024 ambulatory FREDRICK BOLAND Facility:[facility] Start: 12-25-2024 End: 12-27-2024 ambulatory Jigna Matson (Rn) [facility] Comment on above: Research (JOSEPH CHEUNG / [id number]) Research (PHILIP manuel/IRB: [id number]- Pharmacist Contact ) Start: 12-25-2024 End: 12-25-2024 Telephone encounter Intestinal Trans Coord Main Work Phone: Transplant Center Comment on above: Hospital F/U Transition Of Care ( RC f/u discharge LVM /) Start: 12-24-2024 End: 12-24-2024 ambulatory [place] Krystian Facility:[facility] Start: 12-21-2024 End: 12-30-2024 Orders Only [...] questions, please feel call Yuri Salcedo at [phone]/) Start: 12-13-2024 End: 12-13-2024 Telephone encounter Intestinal Trans Coord Main Work Phone: Transplant Center Comment on above: Return Call Request Start: 11-28-2024 End: 11-28-2024 Telephone encounter Intestinal Trans Coord Main Work Phone: Transplant Center Comment on above: Return Call Request Start: 11-28-2024 End: 12-21-2024 Evaluation and management of inpatient SANDRA RILEY Facility:[facility] Start: 11-27-2024 End: 11-27-2024 Telephone encounter Alyson Devine MD Work Phone: Transplant Center Start: 11-21-2024 End: 11-23-2024 Evaluation and management of inpatient Taras Sue Facility:[facility] Start: 11-21-2024 ambulatory Taras Sue Fac ility:[facility] Start: 11-14-2024 ambulatory Joshuamehul Nazario Facility:[facility] Start: 11-13-2024 End: 11-16-2024 ambulatory Fredrick Boland Facility:[facility] Start: 11-13-2024 End: 11-16-2024 Evaluation and management of inpatient Ashley Rosen Facility:[facility] Start: 11-12-2024 End: 11-12-2024 Telephone encounter [facility] Transplant Center Start: 11-06-2024 End: 11-06-2024 Telephone encounter Fredrick Boland Work Phone: [address] [place] [address] Comment on above: Transition Of Care ( Left V/m ) Start: 11-05-2024 End: 11-05-2024 Telephone encounter [facility] Transplant Center Start: 10-30-2024 End: 10-30-2024 Telephone encounter Larry Betancourt MD [facility] Department Comment on above: Fabric Transition of Care Start: 10-28-2024 ambulatory Taras Sue Fac ility:[facility] Start: 10-28-2024 End: 11-05-2024 Evaluation and management of inpatient Taras Sue Facility:[facility] Start: 10-26-2024 End: 10-26-2024 Patient encounter procedure Stephie Montoya MD Work Phone: Gastroenterology Comment on above: On total parenteral nutrition (TPN) (Primary Dx) Start: 10-19-2024 End: 10-26-2024 Evaluation and management of inpatient MICHAEL ELLIS Facility:[id number] Start: 10-19-2024 ambulatory MAGGIE PUTNAM [facility] Start: 10-19-2024 End: 10-19-2024 Emergency department patient visit HERBERT FLORES [facility] Start: 10-09-2024 End: 10-12-2024 ambulatory ROSA MARIA BULLOCK Facility:[id number] Start: 10-09-2024 End: 10-10-2024 Telephone encounter Jamie Ballesteros DO Work Phone: Hematology/Oncology Comment on above: Results; Follow Up Start: 10-09-2024 End: 10-09-2024 Emergency department patient visit MAGGIE VO [facility] Start: 10-08-2024 End: 10-12-2024 Telephone encounter Nico Bashir [facility] Transplant Center Comment on above: Virtual Education Vi sit Start: 10-03-2024 End: 10-03-2024 Telephone encounter Jamie Ballesteros DO Work Phone: Hematology/Oncology Comment on above: Electronic Communica tion Start: 10-02-2024 End: 10-02-2024 Patient encounter procedure Jamie Ballesteros DO Work Phone: Hematology/Oncology Start: 10-02-2024 End: 10-03-2024 ambulatory Lab/Port Ern[facility] Work Phone: Hematology/Oncology Comment on above: Aortic thrombus (HCC ) (Primary Dx) Abnormal serum prote in electrophoresis (Primary Dx); Antiphospholipid antibody syndrome (HCC); Superior mesenteric artery thrombosis (HCC) Start: 09-19-2024 End: 09-19-2024 Patient encounter procedure Zaira Blackwood APRN.DUSTER TENDER Work Phone: Vascular Surg Dept Comment on above: Encounter for post s urgical wound check (Primary Dx); Encounter for staple removal; Arterial occlusion; Acute lower limb ischemia; penitentiary (current) use of aspirin; rn long term care current use of anticoagulant Start: 09-19-2024 End: 09-19-2024 ambulatory FREDRICK BOLAND Facility:[facility] Start: 09-17-2024 End: 09-17-2024 Emergency department patient visit MAGGIE VO [facility] Start: 09-12-2024 End: 09-14-2024 Telephone encounter Jamie Ballesteros DO Work Phone: Hematology/Oncology Comment on above: New Patient Gut Rehab/ Intestine Txp Referral Start: 09-11-2024 End: 09-14-2024 Orders Only Derrick Goncalves MD Work Phone: Vascular Surg Dept [...] Start: 09-03-2024 End: 10-26-2024 ambulatory MAGGIE VO [facility] Start: 08-28-2024 End: 08-28-2024 Telephone encounter Akua Grigsby MD Work Phone: Vascular Medicine Start: 08-20-2024 End: 08-20-2024 ambulatory Katelyn Villagran APRN.CNP Work Phone: Critical Care Start: 08-20-2024 End: 09-03-2024 Evaluation and management of inpatient FREDRICK Yosef BOLAND Facility:[facility] Start: 08-20-2024 End: 08-20-2024 Emergency department patient visit Fredrick Boland Facility:[facility] Start: 08-16-2024 End: 08-16-2024 Emergency department patient visit Fredrick Britorison Facility:[facility] Start: 08-16-2024 End: 08-16-2024 ambulatory XOCHILT GASTON Facility:[facility] Start: 08-16-2024 End: 08-16-2024 Office outpatient visit 25 minutes Xochilt Gaston APRN.CNP Work Phone: [facility] Comment on above: Productive cough (Pr imary Dx); Eczema, unspecified type Start: 08-08-2024 End: 08-29-2024 Follow-up encounter Xochilt Gaston APRN.CNP Work Phone: [facility] Comment on above: Anemia, unspecified type (Primary Dx) Start: 08-07-2024 End: 08-07-2024 Telephone encounter Xochilt Gaston APRN.CNP Work Phone: [facility] Comment on above: Results; EKG Start: 08-07-2024 End: 08-07-2024 ambulatory XOCHILT GASTON Facility:[facility] Start: 08-07-2024 End: 08-07-2024 Office outpatient visit 25 minutes Xochilt Gaston APRN.CNP Work Phone: [facility] Comment on above: Medication managemen t (Primary Dx); Hypokalemia; Low hemoglobin; Anemia, unspecified type; Elevated hemoglobin A1c Start: 07-30-2024 End: 07-30-2024 Emergency department patient visit [place] Boland Facility:[facility] Start: 06-19-2024 End: 06-21-2024 ambulatory Clayton Granados APRN.DUSTER TENDER Work Phone: Psychiatry Comment on above: EKG Start: 05-21-2024 End: 05-21-2024 ambulatory [facility] Facility:[facility] Start: 05-18-2024 End: 05-18-2024 ambulatory [facility] Facility:[facility] Start: 05-18-2024 End: 05-18-2024 [facility] Clayton Granados APRN.DUSTER TENDER Work Phone: Psychiatry Comment on above: ELIJAH (generalized anx iety disorder) (Primary Dx); Panic attacks; Insomnia due to other mental disorder; Bipolar II disorder (HCC); Encounter for long-term (current) use of medications; History of marijuana use; Psychosocial stressors Start: 04-24-2024 End: 04-26-2024 ambulatory Clayton J Rajguru [employer]ERS [employer] EM[employer]IERS SUPERVISOR.DUSTER TENDER Work Phone: Psychiatry Comment on above: UA Start: 03-27-2024 End: 03-28-2024 ambulatory Clayton J Rajguru [employer] SUPERVISOR.DUSTER TENDER Work Phone: Psychiatry Comment on above: Lexapro and zyprexa Start: 03-21-2024 End: 03-21-2024 ambulatory Clayton J Rajguru [employer] SUPERVISOR.DUSTER TENDER Work Phone: Psychiatry Start: 03-21-2024 End: 03-21-2024 Patient encounter procedure Clayton J Kanguru [employer]IERS SUPERVISOR.DUSTER TENDER Work Phone: Psychiatry Comment on above: Appointment Start: 03-03-2024 End: 03-03-2024 ambulatory Clayton J Kanguru [employer] SUPERVISOR.DUSTER TENDER Work Phone: Psychiatry Comment on above: NO SHOW (Primary Dx) Start: 03-03-2024 End: 03-03-2024 Telemedicine consultation with patient Clayton Lila Nationru [employer]ERS [employer] EM[employer]IERS SUPERVISOR.DUSTER TENDER Work Phone: Psychiatry Start: 02-21-2024 End: 02-21-2024 ambulatory Clayton J Rajguru [employer] SUPERVISOR.DUSTER TENDER Work Phone: Psychiatry Comment on above: Lexapro Start: 01-26-2024 ambulatory Clayton J Chapisr u [employer] EM[employer]IERS SUPERVISOR.DUSTER TENDER Work Phone: Psychiatry Comment on above: Appt Start: 01-19-2024 End: 01-19-2024 ambulatory Clayton J Rajguru [employer] SUPERVISOR.DUSTER TENDER Work Phone: Psychiatry Comment on above: NO SHOW (Primary Dx) Start: 01-19-2024 End: 01-19-2024 Telemedicine consultation with patient Clayton Lila Omerguru [employer]ERS [employer] EMULSIFIERS SUPERVISOR.DUSTER TENDER Work Phone: Psychiatry Start: 12-30-2023 ambulatory Clayton J Chapisr u [employer] SUPERVISOR.DUSTER TENDER Work Phone: Psychiatry Start: 12-30-2023 End: 12-30-2023 Patient encounter procedure Clayton J Rajguru [employer] SUPERVISOR.DUSTER TENDER Work Phone: Psychiatry Comment on above: Appointment APPOINTMENT CANCELLE D (Primary Dx) Start: 12-30-2023 End: 12-30-2023 Telemedicine consultation with patient Clayton Lila Granados APRN.DUSTER TENDER Work Phone: Psychiatry Start: 12-12-2023 Refill Fredrick goodwin DO Work Phone: Family Medicine [place] Comment on above: Refill Request Start: 12-10-2023 [facility] Get Medical Advice Fredrick Boland DO Work Phone: Family Medicine [place] Comment on above: Refill Start: 11-12-2023 ambulatory Clayton Lila roman [employer] SUPERVISOR.DUSTER TENDER Work Phone: Psychiatry Comment on above: Zyprexa Start: 10-19-2023 ambulatory Fredrick goodwin DO Work Phone: Internal Medicine Main [place] Start: 09-27-2023 Refill Yesenia Rangel [employer]ERS AND EMULSIFIERS SUPERVISOR.DUSTER TENDER Work Phone: Family Medicine [place] Comment on above: Refill Request Start: 09-02-2023 End: 09-02-2023 [facility] Clayton Granados [employer] EM[employer]IERS SUPERVISOR.DUSTER TENDER Work Phone: Psychiatry Comment on above: Bipolar II disorder (HCC) (Primary Dx); Encounter for long-term (current) use of medications; Panic disorder without agoraphobia; History of marijuana use; ELIJAH (generalized anxiety disorder) Start: 05-23-2023 ambulatory Clayton roman [employer] EM[employer]SIFIERS SUPERVISOR.DUSTER TENDER Work Phone: Psychiatry Comment on above: Zyprexa Start: 05-16-2023 End: 05-16-2023 [facility] Clayton Granados [employer]ERS AND EMULSIFIERS SUPERVISOR.DUSTER TENDER Work Phone: Psychiatry Comment on above: Encounter for long-t erm (current) use of medications (Primary Dx); ELIJAH (generalized anxiety disorder); Bipolar II disorder (HCC); Panic disorder without agoraphobia Start: 04-18-2023 End: 04-18-2023 Distance [facility] Clayton Granados ESTERS AND EMULSIFIERS SUPERVISOR.DUSTER TENDER Work Phone: Psychiatry Comment on above: ELIJAH (generalized anx iety disorder) (Primary Dx); Panic attacks; Bipolar II disorder (HCC); Occasional use of marijuana Start: 03-15-2023 Refill Yesenia Rangel [employer] EM[employer]IERS SUPERVISOR.DUSTER TENDER Work Phone: [facility] Comment on above: Refill Request Start: 03-14-2023 End: 03-14-2023 [facility] Clayton Granados ESTERS AND EMULSIFIERS SUPERVISOR.DUSTER TENDER Work Phone: Psychiatry Comment on above: Encounter for long-t erm (current) use of medications (Primary Dx); ELIJAH (generalized anxiety disorder); Panic attacks; Bipolar affective disorder, current episode mixed, current episode severity unspecified (HCC) Start: 02-25-2023 ambulatory Clayton Nationr jessie [employer]ERS [employer] EMULSIFIERS SUPERVISOR.DUSTER TENDER Work Phone: [facility] [place] Start: 02-25-2023 Patient encounter procedure Clayton Granados [employer]ERS [employer] EMULSIFIERS SUPERVISOR.DUSTER TENDER Work Phone: Psychiatry Comment on above: Appointment Start: 01-05-2023 Refill Clayton Nationr u [employer]IERS SUPERVISOR.DUSTER TENDER Work Phone: Psychiatry Comment on above: Refill Request Start: 01-03-2023 Refill Clayton Nationr u [employer] EM[employer]IERS SUPERVISOR.DUSTER TENDER Work Phone: Psychiatry Comment on above: Refill Request Start: 12-31-2022 Refill Clayton Nationr u [employer] EM[employer]IERS SUPERVISOR.DUSTER TENDER Work Phone: Psychiatry Comment on above: Refill Request Start: 10-28-2022 End: 10-28-2022 [facility] Clayton Granados [employer]ERS AND EMULSIFIERS SUPERVISOR.DUSTER TENDER Work Phone: Psychiatry Comment on above: History of marijuana use (Primary Dx); Bipolar II disorder (HCC); Panic disorder without agoraphobia Start: 10-01-2022 Telephone encounter Shandra Chávez Okeefekelsie Becker [facility] Surgery Comment on above: Chain Maker - O ther (ECT) Start: 09-30-2022 End: 09-30-2022 ambulatory ESA VELÁSQUEZ Facility:[facility] Start: 09-30-2022 End: 09-30-2022 Patient encounter procedure Esa Velásquez [employer]ERS [employer] EMULSIFIERS SUPERVISOR.DUSTER TENDER Work Phone: Psychiatry Comment on above: Bipolar II disorder (HCC) (Primary Dx) Start: 09-27-2022 End: 09-27-2022 Distance [facility] Claytonsammie Granados APRN.[facility] Work Phone: Psychiatry Comment on above: Bipolar 2 disorder ( HCC) (Primary Dx); Panic disorder without agoraphobia; Marijuana use Start: 09-13-2022 End: 09-13-2022 ambulatory Clayton Granados [employer] EM[employer] SUPERVISOR.[facility] Work Phone: Psychiatry Comment on above: NO SHOW (Primary Dx) Start: 09-13-2022 End: 09-13-2022 Telemedicine consultation with patient Clayton Lila Granados APRN.[facility] Work Phone: [facility] [place] Start: 08-24-2022 Telephone encounter Ariella Cortes RN Psychiatry Comment on above: ECT Referral Start: 08-08-2022 Refill Fredrick goodwin DO Work Phone: Family [facility] Comment on above: Refill Request Start: 07-19-2022 End: 07-19-2022 [facility] Clayton Granados [employer]ERS AND EM[employer]IERS SUPERVISOR.[facility] Work Phone: Psychiatry Comment on above: Panic disorder witho ut agoraphobia (Primary Dx); Bipolar 2 disorder (HCC); Marijuana use Start: 07-05-2022 Refill Clayton roman [employer] SUPERVISOR.[facility] Work Phone: Psychiatry Comment on above: Refill Request Start: 07-01-2022 Refill Fredrick Hsu son DO Work Phone: [facility] Comment on above: Refill Request Start: 05-31-2022 End: 05-31-2022 Distance [facility] Clayton Granados ESTERS AND EMULSIFIERS SUPERVISOR.[facility] Work Phone: Psychiatry Comment on above: Encounter for long-t erm (current) use of medications (Primary Dx); Panic disorder without agoraphobia; Bipolar 2 disorder (HCC) Start: 05-24-2022 Refill Clayton Martins u [employer]ERS AND EMULSIFIERS SUPERVISOR.[facility] Work Phone: Psychiatry Comment on above: Refill Request Start: 05-10-2022 Refill Clayton Nationdave u [employer] EM[employer]IERS SUPERVISOR.DUSTER TENDER Work Phone: Psychiatry Comment on above: Refill Request Lexapro Start: 04-09-2022 End: 04-09-2022 ambulatory Clayton Nationrose [employer] EM[employer]IERS SUPERVISOR.DUSTER TENDER Work Phone: Psychiatry Comment on above: NO SHOW (Primary Dx) Start: 04-09-2022 End: 04-09-2022 Telemedicine consultation with patient Clayton Nationrose [employer] EM[employer]IERS SUPERVISOR.DUSTER TENDER Work Phone: [facility] [place] Start: 03-29-2022 End: 03-29-2022 Patient encounter procedure Fredrick Boland DO Work Phone: [facility] Comment on above: Bilateral hand pain (Primary Dx); Elevated C-reactive protein (CRP); Bipolar affective disorder, current episode mixed, current episode severity unspecified (HCC) Start: 03-10-2022 Telephone encounter Fredrick walsh DO Work Phone: [facility] [place] Comment on above: Patient Update Start: 03-04-2022 End: 03-04-2022 [facility] Clayton Sharp Bridgette ESTERS AND EMULSIFIERS SUPERVISOR.DUSTER TENDER Work Phone: Psychiatry Comment on above: Panic disorder witho ut agoraphobia (Primary Dx); Bipolar 2 disorder (HCC) Start: 02-11-2022 Refill Clayton Nationdave u [employer] EM[employer]IERS SUPERVISOR.DUSTER TENDER Work Phone: Psychiatry Comment on above: Refill Request Start: 02-02-2022 End: 02-02-2022 Patient encounter procedure Fredrick Boland DO Work Phone: [facility] Comment on above: Bilateral hand pain (Primary Dx); Foot pain, bilateral; Fatigue, unspecified type; Myalgia; Multiple joint pain; Iron deficiency Start: 01-27-2022 End: 01-27-2022 [facility] Clayton Omer [employer] EM[employer]SIFIERS SUPERVISOR.DUSTER TENDER Work Phone: Psychiatry Comment on above: Bipolar 2 disorder ( HCC) (Primary Dx); Panic disorder without agoraphobia Start: 01-11-2022 ambulatory Clayton Nationr u [employer] EM[employer] SUPERVISOR.DUSTER TENDER Work Phone: Psychiatry Comment on above: Lab work Start: 12-24-2021 End: 12-24-2021 [facility] Claytonsammie Granados [employer] EM[employer]IERS SUPERVISOR.DUSTER TENDER Work Phone: Psychiatry Comment on above: ELIJAH (generalized anx iety disorder) (Primary Dx); Bipolar 2 disorder (HCC); Panic disorder without agoraphobia Start: 12-22-2021 Refill Yesenia Zurawic k [employer] EM[employer]IERS SUPERVISOR.DUSTER TENDER Work Phone: [facility] Medicine [place] Comment on above: Refill Request Start: 12-15-2021 ambulatory Claytonsammie Martins u [employer]ERS [employer] EMULSIFIERS SUPERVISOR.DUSTER TENDER Work Phone: Psychiatry Comment on above: Lexapro Start: 12-08-2021 Telephone encounter Clayton bro [employer] EM[employer]IERS SUPERVISOR.DUSTER TENDER Work Phone: Psychiatry Comment on above: Patient Question Start: 11-26-2021 Refill Clayton roman [employer] SUPERVISOR.DUSTER TENDER Work Phone: Psychiatry Comment on above: Refill Request Start: 11-12-2021 End: 11-12-2021 [facility] Claytonsammie Granados ESTERS AND EMULSIFIERS SUPERVISOR.DUSTER TENDER Work Phone: Psychiatry Comment on above: ELIJAH (generalized anx iety disorder) (Primary Dx); Bipolar 2 disorder (HCC) Start: 11-03-2021 Refill Yesenia Zurawic k [employer] EM[employer]IERS SUPERVISOR.DUSTER TENDER Work Phone: [facility] Comment on above: Refill Request Start: 10-27-2021 End: 10-27-2021 [facility] Claytonsammie Granados ESTERS AND EMULSIFIERS SUPERVISOR.DUSTER TENDER Work Phone: Psychiatry Comment on above: ELIJAH (generalized anx iety disorder) (Primary Dx); Bipolar 2 disorder (HCC) Start: 10-23-2021 ambulatory Xochilt holland [employer]IERS SUPERVISOR.DUSTER TENDER Work Phone: [facility] [place] Start: 10-23-2021 End: 10-23-2021 Patient encounter procedure Xochilt Gaston [employer] EMULS[employer]IERS SUPERVISOR.DUSTER TENDER Work Phone: [facility] Medicine [place] Comment on above: Appointment Bipolar affective di sorder, current episode mixed, current episode severity unspecified (HCC) (Primary Dx); Alcohol abuse; Depressive disorder; Panic attacks; ADD (attention deficit disorder) without hyperactivity; Legal intervention, bystander injured, initial encounter Start: 10-10-2021 ambulatory Room Emergency Radiolog y Comment on above: Radiology CT Start: 10-10-2021 Patient encounter procedure Room Emergency [facility] Start: 03-12-2021 End: 03-12-2021 Subsequent hospital visit by physician Xr [facility] [place] Work Phone: Radiology Comment on above: Acute pain of left k nee [M25.562] Start: 02-07-2018 Patient encounter procedure SANDRA Sameer [facility] Start: 12-08-2017 End: 12-13-2017 Evaluation and management of inpatient Zakiya George Facility:[facility] Date Procedure Procedure Detail Performing Clinician Start: 01-10-2025 Adult depression scr eening assessment [employer] Work Phone: Start: 12-18-2024 Antibody screen FREDRICK BOLAND Comment on above: Order Comment: Speci men Type: BLOOD SPECIMENOrdering Facility: [facility] Address: [address] [place] [address] Performed By: #### T SCR ####CC MAIN BLOOD BANKCLIA [id number] [address] [place] Start: 12-10-2024 Colonoscopy FREDRICK GAR RISON Start: 12-10-2024 Antibody screen FREDRICK BOLAND Comment on above: Order Comment: Speci men Type: BLOOD SPECIMENOrdering Facility: [facility] Address: [address] [place] [address] Performed By: #### T SCR ####CC MAIN BLOOD BANKCLIA [id number] [place] [address] [place] Start: 12-06-2024 Colonoscopy FREDRICK GAR RISON Start: 12-05-2024 Colonoscopy FREDRICK GAR RISON Start: 10-02-2024 Heparin assay Jamie parisi DO Work Phone: Start: 10-02-2024 PATHOLOGIST INTERPRE TATION CBC/DIFF Jamie Sameer Ballesteros DO Work Phone: Start: 09-21-2024 Urinalysis MAGGIE HAMILTON Comment on above: Result Comment: URIN ALYSIS Performed By: #### 2 [id number] #### [facility],[address] [place] [address] Start: 08-21-2024 H/O: surgery History of fasciotomy D danni Grigsby MD Work Phone: Start: 03-04-2022 Adult depression scr eening assessment Clayton Bridgette [employer] SUPERVISOR.DUSTER TENDER Work Phone: Start: 01-27-2022 Adult depression scr eening assessment Clayton Granados [employer] SUPERVISOR.DUSTER TENDER Work Phone: Start: 12-23-2021 Adult depression scr eening assessment Clayton Granados [employer] SUPERVISOR.DUSTER TENDER Work Phone: Start: 11-12-2021 Adult depression scr eening assessment Clayton Granados [employer] SUPERVISOR.DUSTER TENDER Work Phone: Start: 10-26-2021 Adult depression scr eening assessment Xochilt Gaston [employer] SUPERVISOR.DUSTER TENDER Work Phone: Start: 08-27-2021 Adult depression scr eening assessment Room Emergency Start: 03-12-2021 Radiologic exam knee complete 4/more views Herbert Izquierdo MD Work Phone: H/O: surgery S/P exploratory laparotomy Intestinal Trans Coord Main Work Phone: H/O: surgery S/P exploratory laparotomy Alyson Devine MD Work Phone: Plan of Treatment Date Care Activity Detail Author Start: 05-21-2029 Urine microalbumin profile [facility] Start: 03-01-2026 Annual PCP Team Chronic Disease Visit Annual PCP Team Chronic Disease Visit [facility] Start: 01-28-2026 Annual PCP Team Chronic Disease Visit Annual PCP Team Chronic Disease Visit [facility] Start: 01-10-2026 Annual PCP Team Chronic Disease Visit Annual PCP Team Chronic Disease Visit [facility] Start: 01-10-2026 Depression Screening Depression Screening [facility] Start: 11-29-2025 Hepatitis B screening Urine Albumin:Creatinine Ratio [facility] Start: 09-08-2025 PAP TESTING PAP TESTING [facility] Start: 09-04-2025 Hemoglobin A1c measurement HbA1C [facility] Start: 09-02-2025 End: 09-02-2025 Patient encounter procedure 09/02/2025 12:30 PM EDT OT/PT/Speech Visit [facility] [address] [place] [address] Vicente Griffin, PT [address] [place] [address] Disability assessment [facility] Comment on above: Disability assessment Start: 08-27-2025 Diabetic foot examination Diabetic Foot Exam [facility] Start: 08-20-2025 Hepatitis B surface antibody level LDL Cholesterol [facility] Start: 08-16-2025 Annual PCP Team Chronic Disease Visit Annual PCP Team Chronic Disease Visit [facility] Start: 08-07-2025 Hepatitis B Vaccine (1 of 3 - 19+ 3-dose series) Hepatitis B Vaccine (1 of 3 - 19+ 3-dose series) [facility] Comment on above: Postponed from 09/08/2002 (Declined at t his time) Start: 08-07-2025 HIV screening HIV Screening [facility] Comment on above: Postponed from 09/08/2001 (Declined at t his time) Start: 08-07-2025 Pneumococcal vaccination Pneumococcal Vaccine (1 of 2 - PCV) [facility] Comment on above: Postponed from 09/08/2002 (Declined at t his time) Start: 08-07-2025 Screening for malignant neoplasm of breast Mammogram Screening [facility] Comment on above: Postponed from 2023 (Declined at t his time) Start: 04-30-2025 End: 04-30-2025 Follow-up encounter 04/30/2025 2:30 PM EST [facility] [address] [place] [address] Clayton Granados, [employer] SUPERVISOR.DUSTER TENDER [address] [place] [address] 2 month follow up/med check Psychiatry Comment on above: 2 month follow up/med check Start: 03-26-2025 End: 03-26-2025 Patient encounter procedure 03/26/2025 2:30 PM EDT Office Visit Vascular Surg Dept [address] [place] [address] Derrick Goncalves MD [address] [place] [address] Arterial occlusion [facility] Surg Dept Comment on above: Arterial occlusion Start: 03-26-2025 End: 03-26-2025 Patient encounter procedure Vascular Surgery Comment on above: Arterial occlusion Start: 03-06-2025 End: 06-05-2025 Hemoglobin A1c in Blood HEMOGLOBIN A1C Lab Routine Short bowel syndrome, 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 Hypokalemia Malnutrition of moderate degree (HCC) Expected: 03/06/2025 (Approximate), Expires: 06/05/2025 [facility] Work Phone: Comment on above: Expected: 03/06/2025 (Approximate), Expi res: 06/05/2025 Start: 03-06-2025 End: 06-05-2025 Potassium [Moles/volume] in Serum or Plasma POTASSIUM Lab Routine Hypokalemia Expected: 03/06/2025, Expires: 06/05/2025 [facility] Comment on above: Expected: 03/06/2025, Expires: Start: 03-04-2025 End: 03-04-2025 ambulatory 03/04/2025 2:00 PM EDT [facility] Psych[facility] [address] [place] [address] Clayton Granados, [employer] SUPERVISOR.DUSTER TENDER [address] [place] [address] Psychiatry Start: 02-28-2025 End: 02-28-2025 Patient encounter procedure 02/28/2025 1:00 PM EDT Office Visit Family Medicine [place] [address] [place] [address] Chelle Saxena, [employer] SUPERVISOR.DUSTER TENDER [address] [place], [place] [id number] 1 month f/up [facility] [place] Comment on above: 1 month f/up Start: 02-27-2025 End: 02-27-2025 Patient encounter procedure 02/27/2025 11:15 AM EDT Office Visit Vascular Medicine [address] [place] [address] Akua Grigsby MD [address] [place], [place] [phone] SMA thrombosis Vascular Medicine Comment on above: SMA thrombosis Start: 02-26-2025 End: 02-26-2025 ambulatory 02/26/2025 3:30 PM EDT [facility] Psychiat[facility] [address] [place] [address] Clayton Granados, [employer] SUPERVISOR.DUSTER TENDER [address] [place] [phone] Psychiatry Start: 02-15-2025 End: 02-15-2025 Follow-up encounter 02/15/2025 11:30 AM EDT [facility] Psychiat[facility] [address] [place] [phone] Clayton Granados, [employer] SUPERVISOR.DUSTER TENDER [address] [place] [phone] Follow up appointment Psychiatry Comment on above: Follow up appointment Start: 02-04-2025 Hemoglobin A1c measurement HbA1C [facility] Start: 01-28-2025 End: 01-28-2025 Patient encounter procedure 01/28/2025 2:20 PM EDT Office Visit [facility] [place] [address] [place], [place] [phone] Chelle Saxena, [employer] SUPERVISOR.DUSTER TENDER [address] [place], [place] [id number] Blood thinner Family [facility] Comment on above: Blood thinner Start: 01-28-2025 End: 04-29-2025 CBC panel - Blood by Automated count [facility] Comment on above: Expected: 01/28/2025, Expires: Start: 01-28-2025 End: 04-29-2025 Comprehensive metabolic 2000 panel - Serum or Plasma [facility] Work Phone: Comment on above: Expected: 01/28/2025, Expires: Start: 01-28-2025 End: 04-29-2025 PT panel - Platelet poor plasma by Coagulation assay PROTHROMBIN TIME Lab Routine 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) Expected: 01/28/2025, Expires: 04/29/2025 [facility] Work Phone: Comment on above: Expected: 01/28/2025, Expires: Start: 01-22-2025 End: 01-22-2025 Patient encounter procedure [facility] Comment on above: 1 week f/up Start: 01-14-2025 End: 04-15-2025 Basic metabolic 2000 panel - Serum or Plasma BASIC METABOLIC PANEL Lab Routine Hypokalemia Expected: 01/14/2025, Expires: 04/15/2025 [facility] Comment on above: Expected: 01/14/2025, Expires: Start: 01-14-2025 End: 04-15-2025 PT panel - Platelet poor plasma by Coagulation assay PROTHROMBIN TIME Lab Routine Blood thinned due to long-term anticoagulant use Expected: 01/14/2025, Expires: 04/15/2025 [facility] Work Phone: Comment on above: Expected: 01/14/2025, Expires: Start: 01-11-2025 End: 01-11-2025 Follow-up encounter 01/11/2025 3:00 PM EDT [facility] [address] [place] [address] Clayton Granados, [employer] SUPERVISOR.DUSTER TENDER [address] [place] [address] Follow up appointment Psychiatry Comment on above: Follow up appointment Start: 01-10-2025 End: 01-10-2025 Patient encounter procedure 01/10/2025 2:00 PM EDT Office Visit [facility] [place] [address] [place], [place] [phone] Chelle Saxena, [employer] SUPERVISOR.DUSTER TENDER [address] [place] [phone] check up/pain (MyChart Request) [facility] [place] Comment on above: check up/pain (MyChart Request) Start: 01-08-2025 End: 01-08-2025 Patient encounter procedure Gastroenterology Comment on above: hpn page [id number] Start: 01-07-2025 End: 01-07-2025 Follow-up encounter 01/07/2025 2:00 PM EDT [facility] Psych[facility] [address] [place] [address] Clayton Granaods, [employer] SUPERVISOR.DUSTER TENDER [address] [place] [phone] Follow up appointment Psychiatry Comment on above: Follow up appointment Start: 01-03-2025 End: 01-03-2025 Patient encounter procedure 01/03/2025 10:40 AM EDT Office Visit [facility] [place] [address] [place], [place] [phone] Chelle Saxena, [employer] SUPERVISOR.DUSTER TENDER [address] [place] [phone] check up/pain (MyChart Request) [facility] [place] Comment on above: check up/pain (MyChart Request) Start: 01-01-2025 End: 01-01-2025 Patient encounter procedure 01/01/2025 9:00 AM EDT Office Visit Podiatry [address] [phone] Suzanne Duval PA-C [address] [place] [address] DOS 12/03/2024 Podiatry Comment on above: DOS 12/03/2024 Start: 12-31-2024 End: 12-31-2024 Patient encounter procedure [facility] [place] Comment on above: med check follow [...] 8:40 AM EDT Appointment Radiology [address] [place] [address] 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] Radiology Comment on above: Short bowel syndrome without colon in co ntinuity [K90.822] Start: 11-13-2024 End: 11-13-2024 Patient encounter procedure 11/13/2024 1:40 PM EDT Office Visit [facility] [address] [place] [address] Fredrick Boland, [address] [place] [address] Follow up [facility] [place] Comment on above: Follow up Start: 11-08-2024 End: 11-08-2024 Patient encounter procedure 11/08/2024 9:40 AM EDT Appointment Radiology [address] [place] [address] 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] Radiology Comment on above: Short bowel syndrome without colon in co ntinuity [K90.822] Start: 11-05-2024 End: 11-05-2024 Patient encounter procedure 11/05/2024 7:30 AM EDT Appointment Radiology [address] [address] 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] Radiology Comment on above: 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] Start: 10-31-2024 End: 10-31-2024 Follow-up encounter 10/31/2024 10:30 AM EDT Visit (SP) Office Hematology/Oncology [address] [place] [address] Jamie Ballesteros, DO [address] [place] [address] FOLLOW UP-DISCUSS LABS* Hematology/Oncology Comment on above: FOLLOW UP-DISCUSS LABS* Start: 10-29-2024 End: 10-29-2024 Nursing evaluation of patient and report 10/29/2024 1:00 PM EDT Nurse Visit [facility] [address] [facility] [address] [place] [address] Ostomy Issues [facility] Comment on above: Ostomy Issues Start: 10-25-2024 End: 10-25-2024 Follow-up encounter 10/25/2024 9:30 AM EDT Visit (SP) Office Hematology/Oncology [address] [place] [address] Jamie Ballesteros, DO [address] [place] [address] FOLLOW UP-DISCUSS LABS* Hematology/Oncology Comment on above: FOLLOW UP-DISCUSS LABS* Start: 10-22-2024 End: 01-21-2025 25-hydroxyvitamin D3 [Mass/volume] in Serum or Plasma VITAMIN D 25 HYDROXY Lab STAT 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 Expected: 10/22/2024 (Approximate), Expires: 01/21/2025 [facility] Comment on above: Expected: 10/22/2024 (Approximate), Expi res: 01/21/2025 Start: 10-22-2024 End: 01-21-2025 Alpha tocopherol [Mass/volume] in Serum or Plasma VITAMIN E/TOCOPHEROL Lab STAT 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 Expected: 10/22/2024 (Approximate), Expires: 01/21/2025 [facility] Comment on above: Expected: 10/22/2024 (Approximate), Expi res: 01/21/2025 Start: 10-22-2024 End: 01-21-2025 AMINO ACIDS, PLASMA W/ CONSULTATION AMINO ACIDS, PLASMA W/ CONSULTATION Lab STAT 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 Expected: 10/22/2024 (Approximate), Expires: 01/21/2025 [facility] Comment on above: Expected: 10/22/2024 (Approximate), Expi res: 01/21/2025 Start: 10-22-2024 End: 01-21-2025 APC RESISTANCE APC RESISTANCE Lab STAT 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 Expected: 10/22/2024 (Approximate), Expires: 01/21/2025 [facility] Comment on above: Expected: 10/22/2024 (Approximate), Expi res: 01/21/2025 Start: 10-22-2024 End: 01-21-2025 aPTT in Platelet poor plasma by Coagulation assay ACTIVATED PARTIAL THROMBOPLASTIN TIME Lab STAT 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 Expected: 10/22/2024 (Approximate), Expires: 01/21/2025 [facility] Comment on above: Expected: 10/22/2024 (Approximate), Expi res: 01/21/2025 Start: 10-22-2024 End: 01-21-2025 Ascorbate [Mass/volume] in Serum or Plasma VITAMIN C Lab STAT 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 Expected: 10/22/2024 (Approximate), Expires: 01/21/2025 [facility] Comment on above: Expected: 10/22/2024 (Approximate), Expi res: 01/21/2025 Start: 10-22-2024 End: 01-21-2025 CBC W Auto Differential panel - Blood COMPLETE BLOOD COUNT AND DIFFERENTIAL Lab STAT 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 Expected: 10/22/2024 (Approximate), Expires: 01/21/2025 [facility] Comment on above: Expected: 10/22/2024 (Approximate), Expi res: 01/21/2025 Start: 10-22-2024 End: 01-21-2025 Cobalamin (Vitamin B12) [Mass/volume] in Serum or Plasma VITAMIN B12 Lab STAT 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 Expected: 10/22/2024 (Approximate), Expires: 01/21/2025 [facility] Comment on above: Expected: 10/22/2024 (Approximate), Expi res: 01/21/2025 Start: 10-22-2024 End: 01-21-2025 Comprehensive metabolic 2000 panel - Serum or Plasma COMPREHENSIVE METABOLIC PANEL Lab STAT 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 Expected: 10/22/2024 (Approximate), Expires: 01/21/2025 [facility] Comment on above: Expected: 10/22/2024 (Approximate), Expi res: 01/21/2025 Start: 10-22-2024 End: 01-21-2025 Ferritin [Mass/volume] in Serum or Plasma FERRITIN Lab STAT 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 Expected: 10/22/2024 (Approximate), Expires: 01/21/2025 [facility] Comment on above: Expected: 10/22/2024 (Approximate), Expi res: 01/21/2025 Start: 10-22-2024 End: 01-21-2025 Folate [Mass/volume] in Serum or Plasma FOLATE, SERUM Lab STAT 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 Expected: 10/22/2024 (Approximate), Expires: 01/21/2025 [facility] Comment on above: Expected: 10/22/2024 (Approximate), Expi res: 01/21/2025 Start: 10-22-2024 End: 01-21-2025 HYPERCOAG DIAG PNL HYPERCOAG DIAG PNL Lab STAT 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 Expected: 10/22/2024 (Approximate), Expires: 01/21/2025 [facility] Comment on above: Expected: 10/22/2024 (Approximate), Expi res: 01/21/2025 Start: 10-22-2024 End: 01-21-2025 Iron and Iron binding capacity panel - Serum or Plasma IRON AND TIBC Lab STAT 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 Expected: 10/22/2024 (Approximate), Expires: 01/21/2025 [facility] Comment on above: Expected: 10/22/2024 (Approximate), Expi res: 01/21/2025 Start: 10-22-2024 End: 01-21-2025 Magnesium [Mass/volume] in Serum or Plasma MAGNESIUM Lab STAT 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 Expected: 10/22/2024 (Approximate), Expires: 01/21/2025 [facility] Comment on above: Expected: 10/22/2024 (Approximate), Expi res: 01/21/2025 Start: 10-22-2024 End: 01-21-2025 Methylmalonate [Moles/volume] in Serum or Plasma METHYLMALONIC ACID Lab STAT 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 Expected: 10/22/2024 (Approximate), Expires: 01/21/2025 [facility] Comment on above: Expected: 10/22/2024 (Approximate), Expi res: 01/21/2025 Start: 10-22-2024 End: 01-21-2025 Niacin [Mass/volume] in Serum or Plasma VITAMIN B3/NIACIN Lab STAT 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 Expected: 10/22/2024 (Approximate), Expires: 01/21/2025 [facility] Comment on above: Expected: 10/22/2024 (Approximate), Expi res: 01/21/2025 Start: 10-22-2024 End: 01-21-2025 Parathyrin.intact [Mass/volume] in Serum or Plasma PTH INTACT Lab STAT 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 Expected: 10/22/2024 (Approximate), Expires: 01/21/2025 [facility] Comment on above: Expected: 10/22/2024 (Approximate), Expi res: 01/21/2025 Start: 10-22-2024 End: 01-21-2025 Phosphate [Mass/volume] in Serum or Plasma PHOSPHORUS INORGANIC Lab STAT 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 Expected: 10/22/2024 (Approximate), Expires: 01/21/2025 [facility] Comment on above: Expected: 10/22/2024 (Approximate), Expi res: 01/21/2025 Start: 10-22-2024 End: 01-21-2025 Prealbumin [Mass/volume] in Serum or Plasma PREALBUMIN Lab STAT 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 Expected: 10/22/2024 (Approximate), Expires: 01/21/2025 [facility] Comment on above: Expected: 10/22/2024 (Approximate), Expi res: 01/21/2025 Start: 10-22-2024 End: 01-21-2025 PT panel - Platelet poor plasma by Coagulation assay PROTHROMBIN TIME Lab STAT 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 Expected: 10/22/2024 (Approximate), Expires: 01/21/2025 [facility] Comment on above: Expected: 10/22/2024 (Approximate), Expi res: 01/21/2025 Start: 10-22-2024 End: 01-21-2025 Pyridoxine [Mass/volume] in Serum or Plasma VITAMIN B6/PYRIDOXIN Lab STAT 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 Expected: 10/22/2024 (Approximate), Expires: 01/21/2025 [facility] Comment on above: Expected: 10/22/2024 (Approximate), Expi res: 01/21/2025 Start: 10-22-2024 End: 01-21-2025 Retinol [Mass/volume] in Serum or Plasma VITAMIN A/RETINOL Lab STAT 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 Expected: 10/22/2024 (Approximate), Expires: 01/21/2025 [facility] Comment on above: Expected: 10/22/2024 (Approximate), Expi res: 01/21/2025 Start: 10-22-2024 End: 01-21-2025 Thyrotropin [Units/volume] in Serum or Plasma THYROID STIMULATING HORMONE Lab STAT 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 Expected: 10/22/2024 (Approximate), Expires: 01/21/2025 [facility] Comment on above: Expected: 10/22/2024 (Approximate), Expi res: 01/21/2025 Start: 10-22-2024 End: 01-21-2025 TOXICOLOGY PANEL BLD TOXICOLOGY PANEL BLD Lab STAT 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 Expected: 10/22/2024 (Approximate), Expires: 01/21/2025 [facility] Comment on above: Expected: 10/22/2024 (Approximate), Expi res: 01/21/2025 Start: 10-22-2024 End: 01-21-2025 TRACE ELEMENTS/TPN TRACE ELEMENTS/TPN Lab STAT 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 Expected: 10/22/2024 (Approximate), Expires: 01/21/2025 [facility] Comment on above: Expected: 10/22/2024 (Approximate), Expi res: 01/21/2025 Start: 10-22-2024 End: 01-21-2025 TYPE + SCREEN TYPE + SCREEN Blood Bank STAT 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 Expected: 10/22/2024 (Approximate), Expires: 01/21/2025 [facility] Work Phone: Comment on above: Expected: 10/22/2024 (Approximate), Expi res: 01/21/2025 Start: 10-22-2024 End: 10-22-2024 Patient encounter procedure 10/22/2024 11:00 AM EDT Office Visit Vascular Medicine [address] [place] [address] Akua Grigsby MD [address] [place] [address] 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 Comment on above: DX: SMA and leg arterial thrombosis Start: 10-17-2024 End: 10-17-2024 Patient encounter procedure General Surgery Comment on above: post op ACS Start: 10-11-2024 End: 01-10-2025 TOXICOLOGY SCREEN, ROUTINE URINE TOXICOLOGY SCREEN, ROUTINE URINE Lab Routine 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 Expected: 10/11/2024, Expires: 01/10/2025 [facility] Comment on above: Expected: 10/11/2024, Expires: Start: 10-10-2024 End: 10-10-2024 Patient encounter procedure 10/10/2024 12:15 PM EDT Office Visit General Surgery [address] [address] Peter Smith MD [address] [place] [address] post op ACS General Surgery Comment on above: post op ACS Start: 10-06-2024 End: 01-05-2025 CBC W Auto Differential panel - Blood COMPLETE BLOOD COUNT AND DIFFERENTIAL Lab Routine Anemia, unspecified type Expected: 10/06/2024, Expires: 01/05/2025 [facility] Comment on above: Expected: 10/06/2024, Expires: Start: 10-06-2024 End: 01-05-2025 Iron and Iron binding capacity panel - Serum or Plasma IRON AND TIBC Lab Routine Anemia, unspecified type Expected: 10/06/2024, Expires: 01/05/2025 [facility] Work Phone: Comment on above: Expected: 10/06/2024, Expires: Start: 10-02-2024 End: 10-02-2024 ambulatory 10/02/2024 3:00 PM EDT Visit (SP) Office Hematology/Oncology [address] [place] [address] Jamie Ballesteros DO [address] [place], [place] [id number] 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 Comment on above: SOLDER TECHNICIAN/DX: Start: 10-02-2024 End: 01-01-2025 B 2 GPI IGG & IGM [facility] Comment on above: Expected: 10/02/2024, Expires: Start: 10-02-2024 End: 01-01-2025 Cardiolipin IgG and IgM panel - Serum [facility] Comment on above: Expected: 10/02/2024, Expires: Start: 10-02-2024 End: 01-01-2025 Ferritin [Mass/volume] in Serum or Plasma [facility] Comment on above: Expected: 10/02/2024, Expires: Start: 10-02-2024 End: 01-01-2025 Iron and Iron binding capacity panel - Serum or Plasma [facility] Comment on above: Expected: 10/02/2024, Expires: Start: 10-02-2024 End: 01-01-2025 MONOCLONAL PROTEIN, SERUM (BLOOD) [facility] Work Phone: Comment on above: Expected: 10/02/2024, Expires: Start: 10-02-2024 End: 01-01-2025 PROTEIN C FUNCT [facility] Comment on above: Expected: 10/02/2024, Expires: Start: 10-02-2024 End: 01-01-2025 PROTEIN ELECTROPHORESIS SERUM W/INTERP [facility] Comment on above: Expected: 10/02/2024, Expires: Start: 10-02-2024 End: 01-01-2025 PROTEIN S CLOTTABLE [facility] Comment on above: Expected: 10/02/2024 (Approximate), Expi res: 01/01/2025 Start: 10-02-2024 End: 01-01-2025 PROTEIN S IMMUNO [facility] Comment on above: Expected: 10/02/2024, Expires: Start: 10-02-2024 End: 01-01-2025 Transferrin receptor.soluble [Mass/volume] in Serum or Plasma [facility] Comment on above: Expected: 10/02/2024, Expires: Start: 10-01-2024 End: 10-01-2024 Patient encounter procedure 10/01/2024 11:00 AM EDT Office Visit Vascular Medicine [address] [place] [address] Akua Grigsby MD [address] [place] [address] 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 Comment on above: DX: SMA and leg arterial thrombosis Start: 09-19-2024 End: 09-19-2024 Patient encounter procedure Vascular Surgery Comment on above: Hospital FU DX:SMA occlusion Start: 09-10-2024 End: 09-10-2024 Follow-up encounter 09/10/2024 2:00 PM EDT [facility] [address] [place] [address] Clayton Granados, [employer] SUPERVISOR.DUSTER TENDER [address] [place] [phone] Follow up Psychiatry Comment on above: Follow [...] 06/25/2024 11:00 AM EST Office Visit Family [facility] [address] [place], [place] [id number] Yesenia Rangel, [employer] SUPERVISOR.DUSTER TENDER [address] [place], [place] [id number] physical Family [facility] Comment on above: physical Start: 05-18-2024 End: 05-18-2024 ambulatory 05/18/2024 2:00 PM EST [facility] [address] [place] [phone] Clayton Granados, [employer] SUPERVISOR.DUSTER TENDER [address] [place] [phone] med check Psychiatry Comment on above: med check Start: 05-18-2024 End: 08-17-2024 BENZO CONFIRM, URINE BENZO CONFIRM, URINE Lab Routine Encounter for long-term (current) use of medications Expected: 05/18/2024, Expires: 08/17/2024 [facility] Comment on above: Expected: 05/18/2024, Expires: Start: 05-18-2024 End: 08-17-2024 CBC W Auto Differential panel - Blood COMPLETE BLOOD COUNT AND DIFFERENTIAL Lab Routine Encounter for long-term (current) use of medications Expected: 05/18/2024, Expires: 08/17/2024 [facility] Comment on above: Expected: 05/18/2024, Expires: Start: 05-18-2024 End: 08-17-2024 Comprehensive metabolic 2000 panel - Serum or Plasma COMPREHENSIVE METABOLIC PANEL Lab Routine Encounter for long-term (current) use of medications Expected: 05/18/2024, Expires: 08/17/2024 [facility] Work Phone: Comment on above: Expected: 05/18/2024, Expires: Start: 05-18-2024 End: 08-17-2024 Hemoglobin A1c in Blood HEMOGLOBIN A1C Lab Routine Encounter for long-term (current) use of medications Expected: 05/18/2024, Expires: 08/17/2024 [facility] Comment on above: Expected: 05/18/2024, Expires: Start: 05-18-2024 End: 08-17-2024 Lipid 1996 panel - Serum or Plasma LIPID PANEL BASIC Lab Routine Encounter for long-term (current) use of medications Expected: 05/18/2024, Expires: 08/17/2024 [facility] Comment on above: Expected: 05/18/2024, Expires: Start: 05-18-2024 End: 08-17-2024 PHOSPHATIDYLETHANOL (PETH) PHOSPHATIDYLETHANOL (PETH) Lab Routine Encounter for long-term (current) use of medications Expected: 05/18/2024, Expires: 08/17/2024 [facility] Comment on above: Expected: 05/18/2024, Expires: Start: 05-18-2024 End: 08-17-2024 Thyrotropin [Units/volume] in Serum or Plasma THYROID STIMULATING HORMONE Lab Routine Encounter for long-term (current) use of medications Expected: 05/18/2024, Expires: 08/17/2024 [facility] Comment on above: Expected: 05/18/2024, Expires: Start: 05-18-2024 End: 08-17-2024 TOXICOLOGY SCREEN, ROUTINE URINE TOXICOLOGY SCREEN, ROUTINE URINE Lab Routine Encounter for long-term (current) use of medications Expected: 05/18/2024, Expires: 08/17/2024 [facility] Comment on above: Expected: 05/18/2024, Expires: Start: 03-03-2024 End: 03-03-2024 Follow-up encounter 03/03/2024 1:00 PM EDT [facility] [address] [place] [phone] Clayton Granados, [employer] SUPERVISOR.DUSTER TENDER [address] [place] [phone] Follow up Psychiatry Comment on above: Follow up Start: 02-26-2024 Covid-19 Vaccine ( season) Covid-19 Vaccine ( season) [facility] Start: 02-26-2024 Covid-19 Vaccine ( season) Covid-19 Vaccine () [facility] Start: 02-26-2024 Influenza vaccination [facility] Start: 01-19-2024 End: 01-19-2024 Follow-up encounter 01/19/2024 9:00 AM EDT [facility] [address] [place] [phone] Clayton Granados, [employer] SUPERVISOR.DUSTER TENDER [address] [place] [phone] Follow up Psychiatry Comment on above: Follow up Start: 12-30-2023 End: 12-30-2023 Follow-up encounter 12/30/2023 2:00 PM EDT [facility] [address] [place] [phone] Clayton Granados, [employer] SUPERVISOR.DUSTER TENDER [address] [place] [phone] FOLLOW UP Psychiatry Comment on above: FOLLOW UP Start: 10-28-2023 End: 10-28-2023 Patient encounter procedure 10/28/2023 8:20 AM EDT Office Visit Family Medicine [place] [address] [place] [address] Fredrick Boland, [address] [place] [address] missing periods [facility] [place] Comment on above: missing periods Start: 2023 Screening for malignant neoplasm of breast Mammogram Screening [facility] Start: 09-08-2023 End: 12-08-2023 TOX SCREEN ROUT UR TOX SCREEN ROUT UR Lab Routine Encounter for long-term (current) use of medications History of marijuana use Expected: 09/08/2023, Expires: 12/08/2023 [facility] Work Phone: Comment on above: Expected: 09/08/2023, Expires: Start: 09-02-2023 End: 12-02-2023 Comprehensive metabolic 2000 panel - Serum or Plasma COMP METABOLIC PANEL Lab Routine Encounter for long-term (current) use of medications Expected: 09/02/2023, Expires: 12/02/2023 [facility] Work Phone: Comment on above: Expected: 09/02/2023, Expires: Start: 09-02-2023 End: 12-02-2023 Hemoglobin A1c in Blood HGB A1C Lab Routine Encounter for long-term (current) use of medications Expected: 09/02/2023, Expires: 12/02/2023 [facility] Work Phone: Comment on above: Expected: 09/02/2023, Expires: Start: 09-02-2023 End: 12-02-2023 Lipid 1996 panel - Serum or Plasma LIPID PANEL BASIC Lab Routine Encounter for long-term (current) use of medications Expected: 09/02/2023, Expires: 12/02/2023 [facility] Work Phone: Comment on above: Expected: 09/02/2023, Expires: Start: 07-12-2023 HPV TESTING HPV TESTING [facility] Start: 07-12-2023 PAP TESTING PAP TESTING [facility] Start: 07-12-2023 Screening for malignant neoplasm of cervix [facility] Start: 06-27-2023 Depression Assessment Depression Assessment [facility] Start: 05-16-2023 End: 08-15-2023 Comprehensive metabolic 2000 panel - Serum or Plasma COMP METABOLIC PANEL Lab Routine Encounter for long-term (current) use of medications Expected: 05/16/2023, Expires: 08/15/2023 [facility] Work Phone: Comment on above: Expected: 05/16/2023, Expires: 4 Start: 05-16-2023 End: 08-15-2023 Hemoglobin A1c in Blood HGB A1C Lab Routine Encounter for long-term (current) use of medications Expected: 05/16/2023, Expires: 08/15/2023 [facility] Work Phone: Comment on above: Expected: 05/16/2023, Expires: 4 Start: 05-16-2023 End: 08-15-2023 Lipid 1996 panel - Serum or Plasma LIPID PANEL BASIC Lab Routine Encounter for long-term (current) use of medications Expected: 05/16/2023, Expires: 08/15/2023 [facility] Work Phone: Comment on above: Expected: 05/16/2023, Expires: 4 Start: 03-04-2023 Adult depression screening assessment DEPRESSION SCREENING [facility] Start: 02-25-2023 Covid-19 Vaccine ( season) Covid-19 Vaccine () [facility] Start: 02-25-2023 Influenza vaccination [facility] Start: 01-27-2023 Adult depression screening assessment DEPRESSION SCREENING [facility] Start: 12-24-2022 Influenza vaccination INFLUENZA (#1) [facility] Comment on above: Postponed from 02/25/2022 (Declined at t his time) Start: 12-23-2022 Adult depression screening assessment DEPRESSION SCREENING [facility] Start: 11-12-2022 Adult depression screening assessment DEPRESSION SCREENING [facility] Start: 10-28-2022 End: 12-28-2022 TOX SCREEN ROUT UR TOX SCREEN ROUT UR Lab Routine History of marijuana use Expected: 10/28/2022, Expires: 12/28/2022 [facility] Work Phone: Comment on above: Expected: 10/28/2022, Expires: 3 Start: 10-26-2022 Adult depression screening assessment DEPRESSION SCREENING [facility] Start: 09-30-2022 End: 11-30-2022 Basic metabolic 2000 panel - Serum or Plasma [facility] Work Phone: Comment on above: Expected: 09/30/2022, Expires: 3 Start: 09-30-2022 End: 11-30-2022 Choriogonadotropin ( test) [Presence] in Urine [facility] Work Phone: Comment on above: Expected: 09/30/2022, Expires: 3 Start: 09-30-2022 End: 11-30-2022 ETHYL GLUCURONIDE UR SCR [facility] Work Phone: Comment on above: Expected: 09/30/2022, Expires: 3 Start: 09-30-2022 End: 11-30-2022 TOX SCREEN ROUT UR [facility] Work Phone: Comment on above: Expected: 09/30/2022, Expires: 3 Start: 08-27-2022 Adult depression screening assessment DEPRESSION SCREENING [facility] Start: 07-20-2022 COVID-19 VACCINE (#1) COVID-19 VACCINE (#1) [facility] Comment on above: Postponed from 09/08/1988 (Declined at t his time) Postponed from 03/11 (Declined at this time) Start: 07-20-2022 COVID-19 VACCINE (1) COVID-19 VACCINE (1) [facility] Comment on above: Postponed from 09/08/1988 (Declined at t his time) Start: 07-05-2022 End: 09-04-2022 TOX SCREEN ROUT UR TOX SCREEN ROUT UR Lab Routine Marijuana use Expected: 07/05/2022, Expires: 09/04/2022 [facility] Work Phone: Comment on above: Expected: 07/05/2022, Expires: 3 Start: 06-27-2022 DEPRESSION ASSESSMENT DEPRESSION ASSESSMENT [facility] Start: 02-25-2022 Influenza vaccination [facility] Start: 02-02-2022 End: 04-04-2022 25-hydroxyvitamin D3 [Mass/volume] in Serum or Plasma VITAMIN D 25 HYDROXY Lab Routine Fatigue, unspecified type Myalgia Expected: 02/02/2022, Expires: 04/04/2022 [facility] Work Phone: Comment on above: Expected: 02/02/2022, Expires: 2 Start: 02-02-2022 End: 04-04-2022 C reactive protein [Mass/volume] in Serum or Plasma C-REACTIVE PROTEIN (CRP) Lab Routine Bilateral hand pain Foot pain, bilateral Expected: 02/02/2022, Expires: 04/04/2022 [facility] Work Phone: Comment on above: Expected: 02/02/2022, Expires: 2 Start: 02-02-2022 End: 04-04-2022 CBC W Auto Differential panel - Blood CBC + DIFF Lab Routine Fatigue, unspecified type Myalgia Expected: 02/02/2022, Expires: 04/04/2022 [facility] Work Phone: Comment on above: Expected: 02/02/2022, Expires: 2 Start: 02-02-2022 End: 04-04-2022 Cobalamin (Vitamin B12) [Mass/volume] in Serum or Plasma VITAMIN B12 BLOOD Lab Routine Fatigue, unspecified type Myalgia Expected: 02/02/2022, Expires: 04/04/2022 [facility] Work Phone: Comment on above: Expected: 02/02/2022, Expires: 2 Start: 02-02-2022 End: 04-04-2022 Comprehensive metabolic 2000 panel - Serum or Plasma COMP METABOLIC PANEL Lab Routine Fatigue, unspecified type Myalgia Expected: 02/02/2022, Expires: 04/04/2022 [facility] Work Phone: Comment on above: Expected: 02/02/2022, Expires: 2 Start: 02-02-2022 End: 04-04-2022 Cyclic citrullinated peptide IgG Ab [Units/volume] in Serum or Plasma CCP ANTIBODY IGG Lab Routine Bilateral hand pain Foot pain, bilateral Expected: 02/02/2022, Expires: 04/04/2022 [facility] Work Phone: Comment on above: Expected: 02/02/2022, Expires: 2 Start: 02-02-2022 End: 04-04-2022 Erythrocyte sedimentation rate SED RATE WESTERGREN Lab Routine Bilateral hand pain Foot pain, bilateral Expected: 02/02/2022, Expires: 04/04/2022 [facility] Work Phone: Comment on above: Expected: 02/02/2022, Expires: 2 Start: 02-02-2022 End: 04-04-2022 Extractable nuclear Ab panel - Serum ANTI ABIGAIL ID Lab Routine Bilateral hand pain Foot pain, bilateral Expected: 02/02/2022, Expires: 04/04/2022 [facility] Work Phone: Comment on above: Expected: 02/02/2022, Expires: 2 Start: 02-02-2022 End: 04-04-2022 Ferritin [Mass/volume] in Serum or Plasma FERRITIN BLD Lab Routine Myalgia Iron deficiency Expected: 02/02/2022, Expires: 04/04/2022 [facility] Work Phone: Comment on above: Expected: 02/02/2022, Expires: 2 Start: 02-02-2022 End: 04-04-2022 Iron and Iron binding capacity panel - Serum or Plasma IRON + TIBC Lab Routine Myalgia Iron deficiency Expected: 02/02/2022, Expires: 04/04/2022 [facility] Work Phone: Comment on above: Expected: 02/02/2022, Expires: 2 Start: 02-02-2022 End: 04-04-2022 Magnesium [Mass/volume] in Serum or Plasma MAGNESIUM BLD Lab Routine Bilateral hand pain Foot pain, bilateral Expected: 02/02/2022, Expires: 04/04/2022 [facility] Work Phone: Comment on above: Expected: 02/02/2022, Expires: 2 Start: 02-02-2022 End: 04-04-2022 Nuclear Ab [Presence] in Serum by Immunoassay ROBERTA BLOOD Lab Routine Bilateral hand pain Foot pain, bilateral Expected: 02/02/2022, Expires: 04/04/2022 [facility] Work Phone: Comment on above: Expected: 02/02/2022, Expires: 2 Start: 02-02-2022 End: 04-04-2022 Rheumatoid factor [Units/volume] in Serum or Plasma RHEUMATOID FACTOR BL Lab Routine Bilateral hand pain Foot pain, bilateral Expected: 02/02/2022, Expires: 04/04/2022 [facility] Work Phone: Comment on above: Expected: 02/02/2022, Expires: 2 Start: 01-11-2022 End: 03-13-2022 TOX SCREEN ROUT UR TOX SCREEN ROUT UR Lab Routine ELIJAH (generalized anxiety disorder) Expected: 01/11/2022, Expires: 03/13/2022 [facility] Work Phone: Comment on above: Expected: 01/11/2022, Expires: 2 Start: 10-27-2021 End: 12-27-2021 Comprehensive metabolic 2000 panel - Serum or Plasma COMP METABOLIC PANEL Lab Routine ELIJAH (generalized anxiety disorder) Bipolar 2 disorder (HCC) Expected: 10/27/2021, Expires: 12/27/2021 [facility] Work Phone: Comment on above: Expected: 10/27/2021, Expires: 2 Start: 10-27-2021 End: 12-27-2021 TOX SCREEN ROUT UR TOX SCREEN ROUT UR Lab Routine ELIJAH (generalized anxiety disorder) Bipolar 2 disorder (HCC) Expected: 10/27/2021, Expires: 12/27/2021 [facility] Work Phone: Comment on above: Expected: 10/27/2021, Expires: Start: 09-08-2010 HPV Vaccine (1 - 3-dose SCDM series) HPV Vaccine (1 - 3-dose SCDM series) [facility] Start: 09-08-2002 Hepatitis B Vaccine (1 of 3 - 19+ 3-dose series) Hepatitis B Vaccine (1 of 3 - 19+ 3-dose series) [facility] Start: 09-08-2002 ONE PNEUMOVAX PRIOR TO AGE 65 ONE PNEUMOVAX PRIOR TO AGE 65 [facility] Start: 09-08-2002 Pneumococcal vaccination Pneumococcal Vaccine (1 of 2 - PCV) [facility] Start: 09-08-2001 Depression Screening Depression Screening [facility] Start: 09-08-2001 HEPATITIS C SCREENING HEPATITIS C SCREENING [facility] Start: 09-08-2001 Hepatitis C screening Hepatitis C Screening [facility] Start: 09-08-2001 HIV SCREENING HIV SCREENING [facility] Start: 09-08-2001 HIV screening HIV Screening [facility] Start: 09-08-1993 Glaucoma screening Dilated Retinal Exam [facility] Start: 09-08-1993 Hepatitis B screening Urine Albumin:Creatinine Ratio [facility] Start: 09-08-1989 PNEUMOCOCCAL (1 - PCV) PNEUMOCOCCAL (1 - PCV) [facility] Start: 09-08-1989 [facility]neum[facility] Start: 03-11-1984 COVID-19 VACCINE (#1) COVID-19 VACCINE (#1) [facility] Start: 1983 HEPATITIS B (1 of 3 - 3-dose series) HEPATITIS B (1 of 3 - 3-dose series) [facility] Start: 1983 Hepatitis B Vaccine (1 of 3 - 3-dose series) Hepatitis B Vaccine (1 of 3 - 3-dose series) [facility] BETA 2 GLYCOPROTEIN, IGG BETA 2 GLYCOPROTEIN, IGG Lab Routine Antiphospholipid antibody syndrome (HCC) Superior mesenteric artery thrombosis (HCC) 10/02/2024 3:47 PM EDT [facility] BETA 2 GLYCOPROTEIN, IGM BETA 2 GLYCOPROTEIN, IGM Lab Routine Antiphospholipid antibody syndrome (HCC) Superior mesenteric artery thrombosis (HCC) 10/02/2024 3:47 PM EDT [facility] Cardiolipin IgA Ab [Units/volume] in Serum by Immunoassay CARDIOLIPIN IGA ABS Lab Routine Antiphospholipid antibody syndrome (HCC) Superior mesenteric artery thrombosis (HCC) 10/02/2024 3:47 PM EDT [facility] CARDIOLIPIN IGG ABS CARDIOLIPIN IGG ABS Lab Routine Antiphospholipid antibody syndrome (HCC) Superior mesenteric artery thrombosis (HCC) 10/02/2024 3:47 PM EDT [facility] CARDIOLIPIN IGM ABS CARDIOLIPIN IGM ABS Lab Routine Antiphospholipid antibody syndrome (HCC) Superior mesenteric artery thrombosis (HCC) 10/02/2024 3:47 PM EDT [facility] End: 11-10-2025 CT Chest W contrast IV CT CHEST W IVCON Radiology Routine Disorder of artery or arteriole 1 Occurrences starting 10/11/2024 until 11/10/2025 [facility] Comment on above: 1 Occurrences starting 10/11/2024 until 11/10/2025 End: 12-24-2022 ECG COMPLETE ECG COMPLETE ECG Routine ELIJAH (generalized anxiety disorder) 1 Occurrences starting 12/24/2021 until 12/24/2022 [facility] Work Phone: Comment on above: 1 Occurrences starting 12/24/2021 until 12/24/2022 End: 03-14-2024 ECG COMPLETE ECG COMPLETE ECG Routine Encounter for long-term (current) use of medications 1 Occurrences starting 03/14/2023 until 03/14/2024 [facility] Work Phone: Comment on above: 1 Occurrences starting 03/14/2023 until 03/14/2024 End: 05-18-2025 ECG COMPLETE ECG COMPLETE ECG Routine Encounter for long-term (current) use of medications 1 Occurrences starting 05/18/2024 until 05/18/2025 [facility] Comment on above: 1 Occurrences starting 05/18/2024 until 05/18/2025 ECG COMPLETE ECG COMPLETE ECG Routine Medication management Ordered: 08/07/2024 [facility] Work Phone: Comment on above: Ordered: 08/07/2024 End: 10-11-2025 EGD DIAGNOSTIC EGD DIAGNOSTIC Endoscopy Routine 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 1 Occurrences starting 10/11/2024 until 10/11/2025 [facility] Comment on above: 1 Occurrences starting 10/11/2024 until 10/11/2025 End: 10-11-2025 Flexible sigmoidoscopy study COLONOSCOPY DIAGNOSTIC Endoscopy Routine 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 1 Occurrences starting 10/11/2024 until 10/11/2025 [facility] Comment on above: 1 Occurrences starting 10/11/2024 until 10/11/2025 IMMUNOFIXATION SCREE N, SERUM IMMUNOFIXATION SCREEN, SERUM Lab Routine Antiphospholipid antibody syndrome (HCC) Superior mesenteric artery thrombosis (HCC) 10/02/2024 3:47 PM EDT [facility] KAPPA/JULIAN,FREE,SER KAPPA/JULIAN,F REE,SER Lab Routine Antiphospholipid antibody syndrome (HCC) Superior mesenteric artery thrombosis (HCC) 10/02/2024 3:47 PM EDT [facility] End: 11-17-2024 MG Breast Screening MILO SCREENING Radiology Routine Encounter for screening mammogram for breast cancer 1 Occurrences starting 10/19/2023 until 11/17/2024 [facility] Work Phone: Comment on above: 1 Occurrences starting 10/19/2023 until 11/17/2024 Protein [Mass/volume ] in Serum or Plasma PROTEIN, TOTAL Lab Routine Antiphospholipid antibody syndrome (HCC) Superior mesenteric artery thrombosis (HCC) 10/02/2024 3:47 PM EDT [facility] PROTEIN ELECTROPHORE SIS SERUM (P) PROTEIN ELECTROPHORESIS SERUM (P) Lab Routine Antiphospholipid antibody syndrome (HCC) Superior mesenteric artery thrombosis (HCC) 10/02/2024 3:47 PM EDT [facility] End: 03-11-2026 PT panel - Platelet poor plasma by Coagulation assay PROTHROMBIN TIME Lab Routine Deep vein thrombosis (DVT) of proximal lower extremity, unspecified chronicity, unspecified laterality (HCC) 2x per week for 99 Occurrences starting 03/11/2025 until 03/11/2026 [facility] Work Phone: Comment on above: 2x per week for 99 Occurrences starting 03/11/2025 until 03/11/2026 End: 11-10-2025 RF Colon Views W barium contrast W[place] XR COLON SINGLE CONTRAST Radiology Routine 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 1 Occurrences starting 10/11/2024 until 11/10/2025 [facility] Comment on above: 1 Occurrences starting 10/11/2024 until 11/10/2025 End: 11-10-2025 RF Gastrointestinal tract upper Views W barium contrast PO XR UPPER GI SINGLE CONTRAST Radiology Routine 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 1 Occurrences starting 10/11/2024 until 11/10/2025 [facility] Comment on above: 1 Occurrences starting 10/11/2024 until 11/10/2025 End: 09-11-2025 US Lower extremity artery - bilateral [facility] Work Phone: Comment on above: 1 Occurrences starting 09/11/2024 until 09/11/2025 End: 09-19-2025 US Lower extremity artery - bilateral [facility] Work Phone: Comment on above: 1 Occurrences starting 09/19/2024 until 09/19/2025 End: 03-04-2023 XR FOOT GENERAL 3V AP/LAT/OBL BILATERAL XR FOOT GENERAL 3V AP/LAT/OBL BILATERAL Radiology Routine Foot pain, bilateral 1 Occurrences starting 02/02/2022 until 03/04/2023 [facility] Work Phone: Comment on above: 1 Occurrences starting 02/02/2022 until 03/04/2023 End: 11-10-2025 XR GI SMALL BOWEL FOLLOW-THRU XR GI SMALL BOWEL FOLLOW-THRU Radiology Routine 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 1 Occurrences starting 10/11/2024 until 11/10/2025 [facility] Comment on above: 1 Occurrences starting 10/11/2024 until 11/10/2025 End: 03-04-2023 XR HAND GENERAL 3V PA/LAT/OBL BILATERAL XR HAND GENERAL 3V PA/LAT/OBL BILATERAL Radiology Routine Bilateral hand pain 1 Occurrences starting 02/02/2022 until 03/04/2023 [facility] Work Phone: Comment on above: 1 Occurrences starting 02/02/2022 until 03/04/2023 [facility] Immunizations Immunization Date Immunization Notes Care Provider Alexandria cifuentes 05-21-2019 tetanus toxoid, redu leilani diphtheria toxoid, and acellular pertussis vaccine, adsorbed Room Emergency [facility] 07-12-2018 influenza virus vacc ine, unspecified formulation Clayton Granados APRN.DUSTER TENDER Work Phone: [facility] Payers Date Payer Category Payer Self-pay 2022 Unknown [id number] 2014 Medicaid [employer] [id number] 2014-Present [phone] [address] [place] [address] Medicaid [id number] 2014 Medicaid [id number] 1983 Unknown [id number] 8 1983 Unknown [id number] 1 1983 Unknown [id number] 1 1983 Unknown [id number] 1 1983 Unknown [id number] 1 1983 Unknown [id number] 1 1983 Unknown [id number] 7 Unknown [id number] 2 Unknown [id number] 2 Unknown [id number] 2 Unknown [id number] 2.16.840.1.890418.3.579.2.46 2 Unknown [id number] 2.16.840.1.612018.3.579.2.46 2 Unknown [id number] 2.16.840.1.794587.3.579.2.46 2 Unknown [id number] 2.16.840.1.536215.3.579.2.46 2 Unknown [id number] 2.16.840.1.077935.3.579.2.46 2 Unknown [id number] 2.16.840.1.514721.3.579.2.46 2 Unknown [id number] 2.16.840.1.571881.3.579.2.46 2 Unknown [id number] 2.16.840.1.753825.3.579.2.46 2 Unknown [id number] 2.16.840.1.509502.3.579.2.46 2 Unknown [id number] 2.16.840.1.210883.3.579.2.46 2 Unknown [id number] 2.16.840.1.898076.3.579.2.46 2 Unknown [id number] 2.16.840.1.638413.3.579.2.46 2 Unknown [id number] 2.16.840.1.503719.3.579.2.46 2 Unknown [id number] 2.16.840.1.638063.3.579.2.46 2 Unknown [id number] 2.16.840.1.085830.3.579.2.46 2 Unknown [id number] 2.16.840.1.821150.3.579.2.46 2 Unknown [id number] 2.16.840.1.894744.3.579.2.46 2 Unknown [id number] 2.16.840.1.114862.3.579.2.46 2 Unknown [id number] 2.16.840.1.504365.3.579.2.46 2 Unknown [id number] 2.16.840.1.308511.3.579.2.46 2 Unknown [id number] 2.16.840.1.298420.3.579.2.46 2 Unknown [id number] 2.16.840.1.957233.3.579.2.46 2 Unknown [id number] 2.16.840.1.232185.3.579.2.46 2 Unknown [id number] 2.16.840.1.055619.3.579.2.46 2 Unknown [id number] 2.16.840.1.957320.3.579.2.46 2 Unknown [id number] 2.16.840.1.950254.3.579.2.46 2 Unknown [id number] 2.16.840.1.089909.3.579.2.46 2 Unknown [id number] 2.16.840.1.504410.3.579.2.46 2 Unknown [id number] 2.16.840.1.519536.3.579.2.46 2 Unknown [id number] 2.16.840.1.391371.3.579.2.46 2 Unknown [id number] 2.16.840.1.589149.3.579.2.46 2 Unknown [id number] 2.16.840.1.544776.3.579.2.46 2 Unknown [id number] 2.16.840.1.583534.3.579.2.46 2 Unknown [id number] 2.16.840.1.676970.3.579.2.46 2 Unknown [id number] 2.16.840.1.990625.3.579.2.46 2 Unknown [id number] 2.16.840.1.786145.3.579.2.46 2 Unknown [id number] 2.16.840.1.956000.3.579.2.46 2 Worker's Compensation Social History Date Type Detail Facility Start: 07-18-2019 End: 09-19-2024 Tobacco smoking status NHIS Smokes tobacco daily [facility] Work Phone: End: 04-13-2015 History of tobacco use Smoker [facility] Work Phone: Start: 07-18-2019 End: 10-02-2024 Tobacco use and exposure Smokeless tobacco non-user [facility] Work Phone: Start: 10-10-2021 End: 08-20-2024 Alcohol intake Current drinker of alcohol (finding) [facility] Start: 07-18-2021 History SDOH Alcohol Frequency 4 [facility] Start: 07-18-2021 End: 07-13-2022 History SDOH Alcohol Std Drinks 2 [facility] Start: 07-18-2021 End: 07-13-2022 History SDOH Social Connections Zoroastrian 1 [facility] Start: 07-18-2021 End: 07-13-2022 History SDOH Social Connections Living 7 [facility] Start: 07-18-2021 End: 07-13-2022 History SDOH Stress 5 [facility] Start: 11-07-2019 Education 21 [facility] Start: 1985 Sex Assigned At Not on file [facility] Start: 09-30-2021 End: 10-10-2021 Exposure to SARS-CoV-2 (event) Yes [facility] Start: 02-10-2021 End: 03-29-2022 Exposure to SARS-CoV-2 (event) Not sure [facility] End: 04-13-2015 History of tobacco use Cigarette Smoker [facility] Work Phone: Start: 07-13-2022 History SDOH Alcohol Std Drinks 0 [facility] Start: 07-13-2022 History SDOH Physica l Activity MPS 3 [facility] Start: 07-12-2022 End: 01-28-2025 History of Social function [facility] Start: 07-12-2022 End: 01-28-2025 Social connection and isolation panel [facility] Do you belong to any clubs or organizations such as mandaen groups, unions, fraternal or athletic groups, or school groups? No [facility] Are you now , , , , never or living with a partner? Never [facility] How often to you hav e a drink containing alcohol? Never [facility] Start: 05-28-[address] inks containing alcohol do you have on a typical day? Patient does not drink [facility] How hard is it for y ou to pay for the very basics like food, housing, medical care, and heating Very hard [facility] Do you feel stress - tense, restless, nervous, or anxious, or unable to sleep at night because your mind is troubled all the time - these days [OSQ] Very much [facility] (I/We) worried wheth er (my/our) food would run out before (I/we) got money to buy more. Often true [facility] Are you now , , , , never or living with a partner? Living with partner [facility] How often to you hav e a drink containing alcohol? 2-4 times a month [facility] How many standard dr inks containing alcohol do you have on a typical day? 3 or 4 [facility] How often do you hav e 6 or more drinks on 1 occasion? Less than monthly [facility] How hard is it for y ou to pay for the very basics like food, housing, medical care, and heating Somewhat hard [facility] (I/We) worried wheth er (my/our) food would run out before (I/we) got money to buy more. Never true [facility] (I/We) worried wheth er (my/our) food would run out before (I/we) got money to buy more. Sometimes true [facility] Start: 09-19-2024 Tobacco Comment Pateint only u ses the Vape She doesnt smoke nicotine [facility] Start: 10-02-2024 Tobacco smoking stat us NHIS Ex-smoker [facility] Start: 10-02-2024 End: 03-01-2025 Alcoholic beverage intake [facility] Start: 10-02-2024 Tobacco Comment Pateint only u ses the Vape She doesnt smoke nicotine Patient quit smoking 08/20/2024 [facility] Medical Equipment Procedure Code Equipment Code Equipment Origin al Text Equipment Identifier Dates Catheter Sampson Surecuff 9.6fr 3.2mm 1.6mm 2 Branch 90cm Central Venous 1 - [id number] Start: 08-26-2024 Tray Powerpicc 5 fr .018in Nitinol 70cm Catheter 2 Lumen Guidewire - [id number] Start: 12-08-2024 Goals Date Patient Goal Desired Activity /State Personal health goal Personal health goal Functional Status Date Assessment Result Facility 12-21-2024 Are you deaf, or do you have serious difficulty hearing No 12/21/2024 2:10 PM Morena Leggett, NATHANAEL No [facility] 12-21-2024 Are you blind, or do you have serious difficulty seeing, even when wearing glasses No 12/21/2024 2:10 PM Morena Leggett, NATHANAEL No [facility] 12-21-2024 Do you have serious difficulty walking or climbing stairs No 12/21/2024 2:10 PM [place] Morena Toth, NATHANAEL No [facility] 12-21-2024 Do you have difficul ty dressing or bathing No 12/21/2024 2:10 PM [place]ER[place] Morena Toth, NATHANAEL No [facility] 12-21-2024 Because of a physica l, mental, or emotional condition, do you have difficulty doing errands alone such as visiting a physician's office or shopping No 12/21/2024 2:10 PM Morena Leggett, NATHANAEL No [facility] 10-26-2024 Are you deaf, or do you have serious difficulty hearing No 10/26/2024 4:40 PM EDT Lyla Sullivan, NATHANAEL No [facility] 10-26-2024 Are you blind, or do you have serious difficulty seeing, even when wearing glasses No 10/26/2024 4:40 PM [place] Lyla Sullivan, RN No [facility] 10-26-2024 Do you have serious difficulty walking or climbing stairs No 10/26/2024 4:40 PM Lyla Irvin, RN No [facility] 10-26-2024 Do you have difficul ty dressing or bathing No 10/26/2024 4:40 PM Lyla Irvin, NATHANAEL No [facility] 10-26-2024 Because of a physica l, mental, or emotional condition, do you have difficulty doing errands alone such as visiting a physician's office or shopping No 10/26/2024 4:40 PM Lyla Irvin, RN No [facility] 09-03-2024 Are you deaf, or do you have serious difficulty hearing No 09/03/2024 8:13 PM Annabella Ramachandran, NATHANAEL No [facility] 09-03-2024 Are you blind, or do you have serious difficulty seeing, even when wearing glasses No 09/03/2024 8:13 PM Annabella Ramachandran, NATHANAEL No [facility] 09-03-2024 Do you have serious difficulty walking or climbing stairs No 09/03/2024 8:13 PM Annabella Ramachandran, NATHANAEL No [facility] 09-03-2024 Do you have difficul ty dressing or bathing No 09/03/2024 8:13 PM Annabella Ramachandran, NATHANAEL No [facility] 09-03-2024 Because of a physica l, mental, or emotional condition, do you have difficulty doing errands alone such as visiting a physician's office or shopping Yes 09/03/2024 8:13 PM Annabella Ramachandran, NATHANAEL Yes [facility] 01-28-2015 Are you deaf, or do you have serious difficulty hearing No 01/28/2015 11:33 AM Jennifer Davis MA No [facility] 01-28-2015 Are you blind, or do you have serious difficulty seeing, even when wearing glasses No 01/28/2015 11:33 AM Jennifer Davis MA No [facility] 01-28-2015 Do you have serious difficulty walking or climbing stairs No 01/28/2015 11:33 AM Jennifer Davis MA No [facility] 01-28-2015 Do you have difficul ty dressing or bathing No 01/28/2015 11:33 AM Jennifer Davis MA No [facility] 01-28-2015 Because of a physica l, mental, or emotional condition, do you have difficulty doing errands alone such as visiting a physician's office or shopping No 01/28/2015 11:33 AM EDT Jennifer Hilliard MA No [facility] Mental Status Date Assessment Result Facility 12-21-2024 Because of a physica l, mental, or emotional condition, do you have serious difficulty concentrating, remembering, or making decisions No 12/21/2024 2:10 PM EDT Morena Toth RN No [facility] 10-26-2024 Because of a physica l, mental, or emotional condition, do you have serious difficulty concentrating, remembering, or making decisions No 10/26/2024 4:40 PM EDT Lyla Sullivan RN No [facility] 09-03-2024 Because of a physica l, mental, or emotional condition, do you have serious difficulty concentrating, remembering, or making decisions No 09/03/2024 8:13 PM EDT Annabella Jarquin RN No [facility] 01-28-2015 Because of a physica l, mental, or emotional condition, do you have serious difficulty concentrating, remembering, or making decisions Yes 01/28/2015 11:33 AM EDT Jennifer Hilliard MA Yes [facility] Clinical Notes 11-22-2017 to 05-02-2025 Addendum Note - David Nj [facility] - 03/11/2025 2:16 PM EDTAddendum Note - David Nj [facility] 03/11/2025 2:16 PM EDTTelephone Encounter - David Nj [facility] - 03/11/2025 2:14 PM EDT Note Date & Type Note Facility 05-02-2025 Note HNO ID: [id number] Author: KARTHIK SMALL APRN.JUANY Service: ? Author Type: Nurse Practitioner Type: Progress Notes Filed: 05/02/2025 12:36 Note Text: [facility] [place] [facility] Today's Date: 05/02/2025 Name: Daly Evans [...] 04/29/2025 - Initial HPI (Obtained by Karthik Small CNP). DURATION AND ONSET: The pain complaint [...] with: walking, sleeping, and household cleaning Daly Estrella Lover is a 39-year-old female [...] Percocet prescribed by her nurse practitioner at [facility], which she reports helps significantly. She [...] She is currently seeing a doctor at [facility] for her knee pain and is awaiting [...] checked and validated on 05/02/2025 by Karthik Small APRN.DUSTER TENDER All prescriptions have been APPROPRIATELY filled. No suspicious activity was identified. (more content not included)... [facility] 05-02-2025 Note HNO ID: [id number] Author: DALY RODRIGUEZ LPN Service: ? Author [...] for suicidal ideas. The patient is nervous/anxious. [facility] 03-11-2025 Note Addended by: DAVID SMITH on: 03/11/2025 02:16 PM Modules accepted: Orders [facility] 03-11-2025 Miscellaneous Notes Addended by: DAVID [place] on: 03/11/2025 02:16 PM Modules accepted: Orders Spoke with patient and advised can stop warfarin and switch to Eliquis if INR <2.0. Recommended patient have more updated INR drawn as last INR from 02/28/25 (1.4) but patient has been taking warfarin since that time. Morris FigueroaD, [facility] [phone] Spoke with patient who advised she has a starter Eliquis package but needs advise on how to transition to Eliquis. [facility] will disregard referral at this time. Will route to pharmacist and DUSTER TENDER to advise patient on transition from warfarin to Eliquis. Janelle Greenberg RN [facility] Patient may not be switching to warfarin. Noted in Mychart message Eliquis has been approved by insurance. Janelle Greenberg RN [facility] Call to patient's home/cell telephone number; left a voicemail message with request for the patient to return call to PAC at [phone] Option #2. Mychart message sent. Janelle Greenberg RN Pharmacy, Anticoagulation Clinic A call was placed to patient's home and cell telephone number. A voicemail message was left with request for patient to return call to [facility] at [phone] Option #2 to discuss new referral to PAC. Janelle Greenberg RN Pharmacy, Anticoagulation Clinic documented in this encounter [facility] 03-11-2025 Telephone encounter Note Spoke with patient and advised can stop warfarin and switch to Eliquis if INR <2.0. Recommended patient have more updated INR drawn as last INR from 02/28/25 (1.4) but patient has been taking warfarin since that time. David Nj, PharmD, [facility] [phone] [facility] 03-11-2025 Telephone encounter Note Spoke with patient who advised she has a starter Eliquis package but needs advise on how to transition to Eliquis. [facility] will disregard referral at this time. Will route to pharmacist and DUSTER TENDER to advise patient on transition from warfarin to Eliquis. Janelle Greenberg RN [facility] 03-08-2025 Telephone encounter Note Patient may not be switching to warfarin. Noted in Mychart message Eliquis has been approved by insurance. Janelle Greenberg RN [facility] 03-08-2025 Telephone encounter Note The following approved medication requests have been transmitted electronically. Requested Prescriptions Signed Prescriptions Disp Refills gabapentin (NEURONTIN) 300 mg capsule 60 capsule 2 Sig: Take 1 capsule by mouth every 12 hours for 90 days. Authorizing Provider: FREDRICK BOLAND Ordering User: XOCHILT GASTON APRN.CNP PDMP website checked and validated. All prescriptions have been APPROPRIATELY filled. No suspicious activity was identified. 03/08/2025 by Xochilt Gaston CNP. [facility] 03-08-2025 Miscellaneous Notes The following approved medication requests have been transmitted electronically. Requested Prescriptions Signed Prescriptions Disp Refills gabapentin (NEURONTIN) 300 mg capsule 60 capsule 2 Sig: Take 1 capsule by mouth every 12 hours for 90 days. Authorizing Provider: FREDRICK BOLAND Ordering User: XOCHILT GASTON APRN.CNP PDMP [...] send this in for her. Xochilt Gaston APRN.CNP PDMP website checked and validated. All prescriptions have been APPROPRIATELY filled. No suspicious activity was identified. 03/07/2025 by Xochilt Gaston CNP. I am out of gabapentin, and was hoping to get a refill before the weekend. It helps my wound on my left heel, and my stomach. If you need to get a hold of me, my number is [phone]. Thanks! Laura documented in this encounter [facility] 03-07-2025 Telephone encounter Note Called Pt [...] Ritter RN March 07, 2025 7:38 PM [facility] 03-07-2025 Telephone encounter Note Please confirm her gabapentin dose, I'm unsure exactly what it is when looking at her MAR. Then I'm happy to send this in for her. Xochilt Gaston APRN.CNP PDMP website checked and validated. All prescriptions have been APPROPRIATELY filled. No suspicious activity was identified. 03/07/2025 by Xochilt Gaston CNP. [facility] 03-06-2025 Telephone encounter Note I am out of gabapentin, and was hoping to get a refill before the weekend. It helps my wound on my left heel, and my stomach. If you need to get a hold of me, my number is [phone]. Thanks! Laura [facility] Work Phone: 03-06-2025 Telephone encounter Note Call to patient's home/cell telephone number; left a voicemail message with request for the patient to return call to PAC at [phone] Option #2. Mychart message sent. Janelle Greenberg RN Pharmacy, Anticoagulation Clinic [facility] 03-05-2025 Telephone encounter Note Message on phone and MC left with appointment info. Fabienne Mo LPN [facility] 03-05-2025 Miscellaneous Notes Message on phone and MC left with appointment info. Fabienne Mo LPN documented in this encounter [facility] 03-01-2025 History of Present illness Narrative 03/01/2025 Recording using [employer] software for draft documentation of the visit was discussed with the patient/authorized cash application representative; all questions welcomed and answered. Patient/authorized cash application representative agreed to proceed HPI: The patient [...] PAST MEDICAL HISTORY Diagnosis Date Attempted suicide ([facility]) polysubstance Bipolar depression ([facility]) [facility] Gestational diabetes mellitus in ([facility]) Impaired fasting blood sugar 06/2015 a1c 5.7% [...] Hypokalemia (E87.6) 3. Malnutrition of moderate degree (HCC) (E44.0) - Extensive surgical history including bowel [...] Xochilt Gaston APRN.CNP documented in this encounter [facility] 03-01-2025 Telephone encounter Note A call was placed to patient's home and cell telephone number. A voicemail message was left with request for patient to return call to Pharmacy Anticoagulation Clinic at [phone] Option #2 to discuss new referral to PAC. Janelle Greenberg RN Pharmacy, Anticoagulation Clinic [facility] 03-01-2025 Instructions Xochilt Gaston APRN.CNP - 03/01/2025 11:13 AM EDT Increase your potassium pills to 3 a day and we'll recheck your level next 03/06 Increase your Coumadin (warfarin) to the 3mg daily, we'll recheck your next level 03/06 We'll get you set up with the Coumadin clinic documented in this encounter [facility] 03-01-2025 Telephone encounter Note Call placed [...] is same weight as last weight in [facility]. HPN signed off due to noncompliance, [...] Abs Lymph 1.00 - 4.00 k/uL 2.31 Lea% % 7.6 Abs Lea <0.87 k/uL 0.58 Eosin% % 2.0 Abs [...] (H) High (L) Low Chance Florentino RN [facility] 03-01-2025 Miscellaneous Notes Call placed to [...] is same weight as last weight in [facility]. HPN signed off due to noncompliance, [...] Abs Lymph 1.00 - 4.00 k/uL 2.31 Lea% % 7.6 Abs Lea <0.87 k/uL 0.58 Eosin% % 2.0 Abs [...] Chance Florentino RN documented in this encounter [facility] 03-01-2025 Telephone encounter Note Addressed in phone encounter Chance Florentino RN [facility] 03-01-2025 Miscellaneous Notes Addressed in phone encounter Chance Florentino RN documented in this encounter [facility] 02-26-2025 Instructions Clayton Granados, [employer]ULS[employer] SUPERVISOR.DUSTER TENDER - 02/26/2025 4:04 PM EDT - Continue [...] (potassium, magnesium, sodium, kidney function, CBC) to [employer] so they can be reviewed. - If your uploaded results aren t available or show persistent abnormalities, complete the additional labs already ordered by Chelle Saxena. - After reviewing your labs, you will receive a [employer] message with next steps--this may include increasing Lexapro back to 40 mg or other recommendations. For those experiencing a suicidal crisis: --call the National Suicide Prevention Lifeline at 186 (172-541-6234) --text the Crisis Text Line (text HOME to 459419) --call 239 and let them know you are having a mental health crisis or go to your nearest Emergency Room for stabilization. --You can also call Mobile Crisis at [phone]. -- You may call the department appointment line at [phone] to schedule your appointment. -- Please call my nurse at [phone] or send me a message in [employer] with any questions or concerns between appointments. documented in this encounter [facility] 02-26-2025 History of Present illness Narrative [...] visit. Either the patient or their legal cash application representative has been informed of the risks and benefits of -- and alternatives to -- treatment through a remote evaluation and consents to proceed with the evaluation remotely. Recording using [employer] software for draft documentation of the visit was discussed with the patient/authorized cash application representative; all questions welcomed and answered. Patient/authorized cash application representative agreed to proceed CC: Outpatient follow-up and safety monitoring of previously prescribed psychiatric medication, psychotherapy or other treatment HPI: Daly A Lover is a 39-year-old female [...] (HCC) polysubstance Bipolar depression (HCC) [facility] Gestational diabetes mellitus in (HCC) Impaired fasting [...] to upload recent hospital lab results to [facility] for review. - Zyprexa refills sent. [...] to upload recent hospital lab results to [employer] for review. - Will hold off on [...] TIME: 3:33 PM documented in this encounter [facility] 02-26-2025 History of Present illness Narrative [facility] SAFE-T SERVICE DATE: 02/26/2025 SERVICE TIME: 10:00am Additional Comments: Pt appears on [facility] Social Work Pro Report with a PHQ score of 11 and is positive for question 9 suggesting that Pt has thoughts of self-harm or that she would be better off . SW reviewed chart and notes that Pt has a virtual appointment with psychiatry seeing Clayton Granados APRN.CNP today at 3:00. SW will defer to psychiatry and copied the provider on this message. Deferred. SIGNATURE: MONIKA Mullins PATIENT NAME: Daly Evans DATE: February 26, 2025 TIME: 10:02 AM documented in this encounter [facility] 02-23-2025 Note [facility] 02-22-2025 Telephone encounter Note Study Title: IRB: [id number] Caring for OutPatiEnts after Acute Kidney Injury (COPE-JONATAN) trial PI: Dr. Juan Manuel Byrd Date: 02/22/2025 Visit #: Week 9 post Index hospitalization I called the patient to follow up on her participation in the COPE-JONATAN study. Patient is currently hospitalized at [facility] Phone conversation and chart review completed for [...] reports stomach rumbling, but thinks she is eating OK, [x]Voiding symptoms - urinary catheter removed on [...] post-index hospitalization [x] PCP - 02/28/2025 at [facility] [] Other provider Next Nurse Navigator phone follow-up call due 03/08/2025 for the three month follow-up visit. Patient verbalized understanding. Amy Colvin [facility] February 22, 2025 3:20 PM Addendum created on 02/22/2025 for source document clarification. Amy Colvin [facility] February 22, 2025 4:35 PM [facility] 02-22-2025 Miscellaneous Notes Study Title: IRB: 23-738 Caring for OutPatiEnts after Acute Kidney Injury (COPE-JONATAN) trial PI: Dr. Juan Manuel Byrd Date: 02/22/2025 Visit #: Week 9 post Index hospitalization I called the patient to follow up on her participation in the COPE-JONATAN study. Patient is currently hospitalized at [facility] Phone conversation and chart review completed for [...] reports stomach rumbling, but thinks she is eating OK, [x]Voiding symptoms - urinary catheter removed on [...] at this visit: Access patients data on [employer] dashboard: trouble shooting to be continued after [...] post-index hospitalization [x] PCP - 02/28/2025 at [facility] [] Other provider Next Nurse Navigator phone follow-up call due 03/08/2025 for the three month follow-up visit. Patient verbalized understanding. Amy Colvin [facility] February 22, 2025 3:20 PM Addendum created on 02/22/2025 for source document clarification. Amy Colvin [facility] February 22, 2025 4:35 PM documented in this encounter [facility] 02-11-2025 Telephone encounter Note Please see pt message and advise. Once complete, send to information below from pt and update via [employer]. Lauren Hull MA Pt message: I need a doctor's referral for a physical capacity assessment, for a disability claim. I can go to [facility] in [place] ([phone]) or [facility] in [place] (fax [phone]). I greatly appreciate it. Daly [facility] 02-11-2025 Miscellaneous Notes Please see pt message and advise. Once complete, send to information below from pt and update via [employer]. Lauren Hull MA Pt message: I need a doctor's referral for a physical capacity assessment, for a disability claim. I can go to [facility] in [place] ([phone]) or [facility] in [place] (fax [phone]). I greatly appreciate it. Daly documented in this encounter [facility] 02-11-2025 Telephone encounter Note Turned into TE and routed to PCP to advise. Lauren Hull MA [facility] 02-11-2025 Miscellaneous Notes Turned into TE and routed to PCP to advise. Lauren Hull MA documented in this encounter [facility] 02-08-2025 Telephone encounter Note Study Title: IRB: 23-738 Caring for OutPatiEnts after Acute Kidney Injury (COPE-JONATAN) trial PI: Dr. Juan Manuel Byrd Date: 02/08/2025 Visit #: Week 7 post Index hospitalization I called the patient to follow up on her participation in the COPE-JONATAN study. msg left to return my call. Chart review completed for the following: Access patients data on [employer] dashboard:N/A - device use history not recorded [...] in 2-3 days, pending return call from [facility]. Amy Colvin [facility] February 08, 2025 4:22 PM [facility] 02-08-2025 Miscellaneous Notes Study Title: IRB: 23-738 Caring for OutPatiEnts after Acute Kidney Injury (COPE-JONATAN) trial PI: Dr. Juan Manuel Byrd Date: 02/08/2025 Visit #: Week 7 post Index hospitalization I called the patient to follow up on her participation in the COPE-JONATAN study. msg left to return my call. Chart review completed for the following: Access patients data on [employer] dashboard:N/A - device use history not recorded [...] in 2-3 days, pending return call from [facility]. Amy Colvin [facility] February 08, 2025 4:22 PM documented in this encounter [facility] 02-07-2025 Telephone encounter Note Prescription for Flagyl sent to local pharmacy. Sandra Castle PA-C [facility] 02-07-2025 Miscellaneous Notes Prescription for Flagyl [...] I will discuss her symptoms with the TRACEE and then send her a my chart message. I called TRACEE Pressley and discussed the above and she agreed to prescribe 7-day course of Flagyl. Order routed to Sandra for signature. Pt notified via my chart. documented in this encounter [facility] 02-07-2025 Telephone encounter Note I called [...] for signature. Pt notified via my chart. [facility] 01-28-2025 Instructions Chelle Saxena APRN.JUANY - 01/28/2025 2:35 PM EDT Get your labs on your way out today documented in this encounter [facility] 01-28-2025 History of Present illness Narrative [...] (HCC) polysubstance Bipolar depression (HCC) [facility]- Camelia Whyte Gestational diabetes mellitus [...] needing to have her picc line removed. MEDICAL CLAIMS EXAMINER calling wound center to see if they are comfortable doing so. Labs being drawn today. Discussed treatment plan and patient voices understanding. Patient's questions answered appropriately. Medications and potential side effects were discussed and patient voices understanding. Return to the office as scheduled or as needed for worsening/no improvement. Chelle Saxena APRN.DUSTER TENDER Recording using [employer] software for draft documentation of the visit was discussed with the patient/authorized cash application representative; all questions welcomed and answered. Patient/authorized cash application representative agreed to proceed documented in this encounter [facility] 01-28-2025 Telephone encounter Note Study Title: [...] Jigna Montalvo January 28, 2025 12:18 PM [facility] 01-28-2025 Miscellaneous Notes Study Title: IRB: [...] re: Other Provider Follow-up appointments: [] JOSEPH Borrego Pharmacist [] PCP [] Other provider Next Nurse Navigator phone follow-up call due in 2 weeks. Jigna Montalvo January 28, 2025 12:18 PM documented in this encounter [facility] 01-24-2025 Telephone encounter Note Home Nutrition Support Service Dr. Elaine responded and said he agrees we should not manage patient again in the future if she were to require PN again. Routed letter to Dr. Montoya and Tabatha Jalloh for review and signature, to then be mailed via certified and regular mail alerting patient to this. Email [employer] alerting them of situation. Signoff orders and [...] non-compliance - Email sent to angel as on situation - PICC removal order faxed to infusion center. Infusion center will call patient to schedule removal - HNS episode closed Bisi Seo RD, LD, CNSC [facility] Work Phone: 01-24-2025 Miscellaneous Notes Home Nutrition Support Service Dr. Elaine responded and said he agrees we should not manage patient again in the future if she were to require PN again. Routed letter to Dr. Montoya and Tabatha Jalloh for review and signature, to then be mailed via certified and regular mail alerting patient to this. Email [employer] alerting them of situation. Signoff orders and [...] non-compliance - Email sent to angel as ZACK on situation - PICC removal order faxed to infusion center. Infusion center will call patient to schedule removal - HNS episode closed Bisi Seo RD, LD, CNSC documented in this encounter [facility] 01-24-2025 Telephone encounter Note Called spoke with pt gave information provided. Pt voices understanding. [facility] 01-24-2025 Miscellaneous Notes Called spoke with pt gave information provided. Pt voices understanding. Images from the original note were not included. Chelle Saxena APRN.DUSTER TENDER to [facility] [place] 01/24/25 8:59 AM Result [...] call and went over results, notes from Chelle Saxena SOLDER TECHNICIAN with understanding. documented in this encounter [facility] 01-24-2025 Telephone encounter Note Images from the original note were not included. Chelle Saxena APRN.DUSTER TENDER to [facility] [place] 01/24/25 8:59 AM Result Note Call [...] call and went over results, notes from Chelle Saxena SOLDER TECHNICIAN with understanding. [facility] 01-23-2025 Telephone encounter Note Agree that we should not manage in the future. Very sad for her. Farzaneh Elaine MD January 23, 2025 [facility] Work Phone: 01-23-2025 Miscellaneous Notes Agree that we should not manage in the future. Very sad for her. Farzaneh Elaine MD January 23, 2025 Home Nutrition Support Service Received email from [facility] that patient is refusing delivery/all future [...] Reccs: - Sign off orders sent to [facility] as patient self-weaned her PN completely and is refusing all PN deliveries - Order for PICC removal pended in [facility] and routed to Dr. Montoya for signature - Encounter routed to Dr. Montoya and Dr. Elaine to confirm that HNS would not manage in the future should patient need PN again given severe non-compliance and complete self-weaning of PN. Also routed to Transplant as an FYI/update on PN Bisi Seo RD, LD, CNSC documented in this encounter [facility] 01-23-2025 Telephone encounter Note Home Nutrition Support Service Received email from [facility] that patient is refusing delivery/all future [...] Reccs: - Sign off orders sent to [facility] as patient self-weaned her PN completely and is refusing all PN deliveries - Order for PICC removal pended in [facility] and routed to Dr. Montoya for signature - Encounter routed to Dr. Montoya and Dr. Elaine to confirm that [facility] would not manage in the future should patient need PN again given severe non-compliance and complete self-weaning of PN. Also routed to Transplant as an FYI/update on PN Bisi Seo RD, LD, CNSC [facility] Work Phone: 01-17-2025 Telephone encounter Note Home Nutrition Support Service Patient called office and stated she needs to stop TPN because she no longer has room in her refrigerator, and because Dr. Devine said she needs to stop. Reviewed [facility] encounters. Last encounter with Dr. Devine was [...] last week Bisi Seo RD, LD, CNSC [facility] Work Phone: 01-17-2025 Miscellaneous Notes Home [...] Dr. Devine that she needs to discontinue. [phone] documented in this encounter [facility] 01-17-2025 Telephone encounter Note Pt called to discuss weaning TPN. Has been told by Dr. Devine that she needs to discontinue. [phone] [facility] 01-14-2025 Telephone encounter Note Call placed to Daly about her lab work and inquiring if she picked up the lovenox and warfarin and if anyone followed up with her on the labs. She stated no, she did parts picker the warfarin and started that on Tuesday. She said all the pharmacies were out of lovenox injections. Ordered an INR and told her to get it drawn tomorrow. Chelle Saxena APRN.JUANY [facility] 01-14-2025 Miscellaneous Notes Call placed to Daly about her lab work and inquiring if she picked up the lovenox and warfarin and if anyone followed up with her on the labs. She stated no, she did parts picker the warfarin and started that on Tuesday. She said all the pharmacies were out of lovenox injections. Ordered an INR and told her to get it drawn tomorrow. Chelle Saxena APRN.CNP documented in this encounter [facility] 01-11-2025 Instructions Clayton Granados APRN.CNP - [...] This prescription has been sent to your [facility] pharmacy in [place]. - If you experience any gastrointestinal side [...] the National Suicide Prevention Lifeline at 988 (750.500.9078) --text the Crisis Text Line (text HOME to 587455) --call 911 and let them know you are having a mental health crisis or go to your nearest Emergency Room for stabilization. --You can also call Mobile Crisis at [phone]. -- You may call the department appointment line at [phone] to schedule your appointment. -- Please call my nurse at [phone] or send me a message in [employer] with any questions or concerns between appointments. documented in this encounter [facility] 01-11-2025 History of Present illness Narrative [...] visit. Either the patient or their legal cash application representative has been informed of the risks and benefits of -- and alternatives to -- treatment through a remote evaluation and consents to proceed with the evaluation remotely. Recording using [employer] software for draft documentation of the visit was discussed with the patient/authorized cash application representative; all questions welcomed and answered. Patient/authorized cash application representative agreed to proceed CC: Outpatient follow-up [...] 20 mg during her hospital stay at [facility], reportedly due to concerns about gut [...] PSYCHOTHERAPY CODE : No SIGNATURE: Clayton Granados APRN.DUSTER TENDER PATIENT NAME: Daly Evans DATE: January 11, 2025 TIME: 3:12 PM documented in this encounter [facility] 01-10-2025 Instructions Chelle Saxena APRN.CNP - 01/10/2025 2:51 PM EDT [...] in next week documented in this encounter [facility] 01-10-2025 History of Present illness Narrative [...] (HCC) polysubstance Bipolar depression (HCC) [facility] Camelia hWyte Gestational diabetes mellitus in (HCC) Impaired fasting [...] which included preparing to see the patient, [id number] patient care, obtaining and/or reviewing separately obtained [...] scheduled or as needed for worsening/no improvement. Chelle Saxena APRN.DUSTER TENDER Recording using [employer] software for draft documentation of the visit was discussed with the patient/authorized cash application representative; all questions welcomed and answered. Patient/authorized cash application representative agreed to proceed documented in this encounter [facility] 01-10-2025 Telephone encounter Note Home Nutrition [...] week to include CRP Mayra Alexandre RD [facility] 01-10-2025 Miscellaneous Notes Home Nutrition Support [...] follow up. ED visit not seen in [facility] though may have gone to local ED not viewable in [facility]/Care everywhere. No answer, LVM. Rec: await [...] ED for repletion. Noted that [facility] has not been able to get ahold of patient since discharge, and these labs are overdue from 12/31. Discussed this w/ patient and she agreed to call [facility] back tomorrow so we can discuss overall plan/ New Patient Week 1. Recs: - Await ED outcome Mayra Alexandre RD documented in this encounter [facility] 01-10-2025 Telephone encounter Note Home Nutrition Support Service Call to pt to follow up. ED visit not seen in [facility] though may have gone to local ED not viewable in [facility]/Care everywhere. No answer, LVM. Rec: await return call Satish Haider RD, LD, CNSC [facility] Work Phone: 01-09-2025 Telephone encounter Note Study Title: IRB: 23-738 Caring for OutPatiEnts after Acute Kidney Injury (COPE-JONATAN) trial PI: Dr. Juan Manuel Byrd Date: 01/09/2025 Visit #: Week 3 post Index hospitalization I called the patient to follow up on her participation in the COPE-JONATAN study. Phone conversation and chart review completed for the following: Access patients data on [employer] dashboard: N/A -[employer] devices not in use. [...] Provider Follow-up appointments: [x] COPE Study Team, [facility] follow-up due between 01/13 - 01/27/2025 [] PCP [] Other provider Next Nurse Navigator phone follow-up call due at 5-weeks post-hospital discharge, on or before 01/25/2025. Patient verbalized understanding. Amy Colvin [facility] January 09, 2025 11:16 AM [facility] 01-09-2025 Miscellaneous Notes Study Title: IRB: 23-738 Caring for OutPatiEnts after Acute Kidney Injury (COPE-JONATAN) trial PI: Dr. Juan Manuel Byrd Date: 01/09/2025 Visit #: Week 3 post Index hospitalization I called the patient to follow up on her participation in the COPE-JONATAN study. Phone conversation and chart review completed for the following: Access patients data on [employer] dashboard: N/A -[employer] devices not in use. [...] Provider Follow-up appointments: [x] COPE Study Team, [facility] follow-up due between 01/13 - 01/27/2025 [] PCP [] Other provider Next Nurse Navigator phone follow-up call due at 5-weeks post-hospital discharge, on or before 01/25/2025. Patient verbalized understanding. Amy Boros [facility] January 09, 2025 11:16 AM documented in this encounter [facility] 01-08-2025 Telephone encounter Note Home Nutrition [...] ED for repletion. Noted that [facility] has not been able to get ahold of patient since discharge, and these labs are overdue from 12/31. Discussed this w/ patient and she agreed to call [facility] back tomorrow so we can discuss overall plan/ New Patient Week 1. Recs: - Await ED outcome Mayra Alexandre RD [facility] 01-07-2025 Telephone encounter Note Record ID: [id number] Patient name: Daly Evans Date: January 07, [...] was moved to different rooms five times [facility] 01-07-2025 Miscellaneous Notes Record ID: [id number] Patient name: Daly Evans Date: January 07, [...] rooms five times documented in this encounter [facility] 01-04-2025 Telephone encounter Note Unable To Reach Patient Patient's name appears on the [employer] report for a PHQ-9 score of 14 and +9. Second attempt:SW called Patient to follow up and left a VM requesting a call back. MONIKA Dhillon [facility] 01-04-2025 Miscellaneous Notes Unable To Reach Patient Patient's name appears on the [employer] report for a PHQ-9 score of 14 and +9. Second attempt:SW called Patient to follow up and left a VM requesting a call back. MONIKA Dhillon documented in this encounter [facility] 01-03-2025 Telephone encounter Note Unable To Reach Patient Patient's name appears on the [employer] report for a PHQ-9 score of 14 and +9. SW called Patient to follow up and left a VM requesting a call back. [employer] SEVERITY RATING SCALE Unable to reach Patient to assess. MONIKA Dhillon [facility] 01-03-2025 Miscellaneous Notes Unable To Reach Patient Patient's name appears on the [employer] report for a PHQ-9 score of 14 and +9. SW called Patient to follow up and left a VM requesting a call back. [employer] SEVERITY RATING SCALE Unable to reach Patient to assess. MONIKA Dhillon documented in this encounter [facility] 01-02-2025 Telephone encounter Note Transitional Care Management (TCM) [facility] Monitoring Program Provider Action / FYI: N/a SUMMARY: Outreach type: INITIAL OUTREACH Discharge Network Status: In-Network Discharge Source of Patient: [facility] TCM Discharge Report Patient discharged from [facility] on 12/21/2024. Admitted for Lactic acidosis. Contact made with patient: No, for Follow-up - end outreach and close encounter. Polly Blanton January 02, 2025 2:24 PM [facility] 01-02-2025 Miscellaneous Notes Transitional Care Management (TCM) [facility] Monitoring Program Provider Action / FYI: N/a SUMMARY: Outreach type: INITIAL OUTREACH Discharge Network Status: In-Network Discharge Source of Patient: [facility] TCM Discharge Report Patient discharged from [facility] on 12/21/2024. Admitted for Lactic acidosis. Contact made with patient: No, for Follow-up - end outreach and close encounter. Polly Blanton January 02, 2025 2:24 PM documented in this encounter [facility] 01-02-2025 Telephone encounter Note Study Title: [...] Jigna Montalvo January 02, 2025 11:04 AM [facility] 01-02-2025 Miscellaneous Notes Study Title: IRB: [...] 2025 11:04 AM documented in this encounter [facility] 01-01-2025 Telephone encounter Note Transitional Care [...] La Fuente January 01, 2025 10:37 AM [facility] 01-01-2025 Miscellaneous Notes Transitional Care Management (TCM) [facility] Monitoring Program Provider Action / FYI: na SUMMARY: Outreach type: INITIAL OUTREACH Discharge Network Status: In-Network Discharge Source of Patient: [facility] TCM Discharge Report Patient discharged from [facility] on 12.21.24. Admitted for Lactic acidosis. . Contact made with patient: No - 2nd unsuccessful attempt - end outreach and close encounter. Sean De La Fuente January 01, 2025 10:37 AM documented in this encounter [facility] 12-31-2024 History of Present illness Narrative Images from the original note were not included. [place] [facility] Follow Up [...] a 39 year old single female from [place], [place] ([address], supportive father) with a [...] DC to SNF 09/03/24 and referred to [facility] Medical and Surgical Teams for STEP [...] output stoma and dehydration Presented to the [facility] emergency room with concerns for dehydration [...] Partial Omentectom. She was transferred back to [facility]: on AUTOMATIC MACHINE ATTENDANT, with NG tube, with pathak, on continued [...] patient was seen and examined with Dr. Alyson Devine MD [facility] STAFF PHYSICIAN NOTE OF PERSONAL INVOLVEMENT IN [...] lagos components of the note. PHYSICAL EXAM: [facility] 08/29/2024 General appearance: well appearing, alert, in [...] mg PO TID x 7 days for JOLENEHelen Sandra Castle PA-C 12/26/2024 documented in this encounter [facility] 12-31-2024 Note [facility] 12-25-2024 Telephone encounter Note Study Title: Caring [...] call. Discussed care recommendations: Next appointment scheduled: [facility] 12-25-2024 Miscellaneous Notes Study Title: Caring [...] Next appointment scheduled: documented in this encounter [facility] 12-25-2024 Telephone encounter Note Transitional Care Management (TCM) [facility] Monitoring Program Provider Action / FYI: N/A SUMMARY: Outreach type: INITIAL OUTREACH Discharge Network Status: In-Network Discharge Source of Patient: [facility] TCM Discharge Report Patient discharged from [facility] on 12/21/24. Admitted for Lactic acidosis. Contact made with patient: No - next outreach attempt will be on next . Suman Guevara RN December 25, 2024 2:27 PM [facility] 12-25-2024 Miscellaneous Notes Transitional Care Management (TCM) [facility] Monitoring Program Provider Action / FYI: N/A SUMMARY: Outreach type: INITIAL OUTREACH Discharge Network Status: In-Network Discharge Source of Patient: [facility] TCM Discharge Report Patient discharged from [facility] on 12/21/24. Admitted for Lactic acidosis. Contact made with patient: No - next outreach attempt will be on next . Suman Guevara RN December 25, 2024 2:27 PM documented in this encounter [facility] 12-25-2024 Telephone encounter Note Pt was [...] on Sunday 12/31. Dr. Devine was updated. [facility] 12-25-2024 Miscellaneous Notes Pt was discharged [...] Devine was updated. documented in this encounter [facility] 12-25-2024 History of Present illness Narrative [...] PHARMACIST ASSESSMENT/CHECKLIST: -Discharge date: 12/21/24 -Date of [facility] [facility] assessment[facility]communication: 12/25/24 -Disposition of the patient at time of assessment? Home -Review study senior asp net developer (B-38) and nurse navigator (B-41) documentation [...] When in the Hospital: Presented to the [facility] emergency room with concerns for dehydration [...] Partial Omentectom. She was transferred back to [facility]: on AUTOMATIC MACHINE ATTENDANT, with NG tube, with pathak, on continued [...] 12 hrs and begin bridging to warfarin [facility] has coumadin clinic but only takes referral from [place] [facility] staff. escitalopram oxalate (LEXAPRO) 20 mg tablet [...] 2024 9:10 AM documented in this encounter [facility] 12-25-2024 Note [facility] 12-21-2024 Note [facility] 12-21-2024 Note [facility] 12-21-2024 Note [facility] 12-21-2024 History of Present illness Narrative [facility] Patient education Checklist. Patient Name: Daly Evans MR# [id number] Date: December 21, 2024 10:17 am Performance [...] Infusion Pharmacy Nurse documented in this encounter [facility] 12-21-2024 Note [facility] 12-20-2024 Note [facility] 12-20-2024 Note [facility] 12-20-2024 Note [facility] 12-20-2024 History of Present illness Narrative Study Title: Caring for OutPatiEnts aftr Acute Kidney Injury (COPE-JONATNA) Trial IRB:[id number] PI: Dr. 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: Pending B- Informed the patient of Nurse Navigator Role and Provided NN contact information: Yes Collection of medical care team contacts: PCP: DO Kriss Pruitt study Physician: podiatry - Linda Duval DO and [facility] - Albina Mejia Pharmacy: Study pharmacist Preferred method of communication: Video call NoPhone call: Yes Educational written materials provided: Yes [employer] downloaded & equipment supplied: Yes Patient received training on equipment: Yes Device serial number scale: [id number] Device serial number BP device: [id number] C-24 Labs Collected: blood: No urine: No Contact PCP: pending Next appointment scheduled: 2-3 day visit. Jigna Montalvo December 25, 2024 11:13 AM documented in this encounter [facility] 12-19-2024 Note [facility] 12-19-2024 Note [facility] 12-18-2024 Note [facility] 12-18-2024 Note [facility] 12-17-2024 Note [facility] 12-17-2024 Note [facility] 12-16-2024 Note [facility] 12-16-2024 Note [facility] 12-15-2024 Note [facility] 12-15-2024 Note [facility] 12-14-2024 Note [facility] 12-14-2024 Note [facility] 12-13-2024 Note [facility] 12-13-2024 Telephone encounter Note Message given to Sandra Castle PA-c, inpatient team. [facility] 12-13-2024 Miscellaneous Notes Message given to Sandra Castle PA-c, inpatient team. Ernst called concerning the status of the pt's surgery. Requesting a return call from the cash applications coordinator. Please call Ernst at [phone]. Twila Vargas documented in this encounter [facility] 12-13-2024 Telephone encounter Note Ernst called concerning the status of the pt's surgery. Requesting a return call from the cash applications coordinator. Please call Ernst at [phone]. Twila Vargas [facility] 12-13-2024 Note [facility] 12-12-2024 Note [facility] 12-12-2024 Note [facility] 12-12-2024 Note [facility] 12-12-2024 Note [facility] 12-11-2024 Note [facility] 12-10-2024 Note [facility] 12-09-2024 Note [facility] 12-09-2024 Note [facility] 12-08-2024 Note [facility] 12-07-2024 Note [facility] 12-07-2024 Note [facility] 12-07-2024 Note [facility] 12-06-2024 Note [facility] 12-06-2024 Note [facility] 12-05-2024 Note [facility] 11-28-2024 Telephone encounter Note I called Ernst [...] to the ED as we discussed yesterday. [facility] 11-28-2024 Miscellaneous Notes I called Ernst [...] requesting that Libia calls him back at [phone]. Ernst says that Daly is in the emergency room because she is having issues with her ostomy bag. Ernst says that Daly is sweating, dizzy, and in pain. documented in this encounter [facility] 11-28-2024 Telephone encounter Note Ernst (father) called in requesting that Libia calls him back at [phone]. Ernst says that Daly is in the emergency room because she is having issues with her ostomy bag. Ernst says that Daly is sweating, dizzy, and in pain. [facility] Work Phone: 11-27-2024 Telephone encounter Note I returned Daly's call. She was hospitalized again a few days ago. She was given IVF and electrolytes, and then discharged. She has had multiple local hospital admissions for dehydration, high stoma output, and electrolyte imbalance. She has not yet been evaluated by our team, and has decided to come [facility] ED tomorrow for evaluation and possible admission to the medicine service for stabilization. I told her that I will inform Dr. Devine. I did reach out to Dr. Devine and shared the above. [facility] 11-27-2024 Miscellaneous Notes I returned Daly's call. She was hospitalized again a few days ago. She was given IVF and electrolytes, and then discharged. She has had multiple local hospital admissions for dehydration, high stoma output, and electrolyte imbalance. She has not yet been evaluated by our team, and has decided to come [facility] ED tomorrow for evaluation and possible admission to the medicine service for stabilization. I told her that I will inform Dr. Devine. I did reach out to Dr. Devine and shared the above. The patient requests a call from Libia.. Gretchen Navarrete documented in this encounter [facility] 11-27-2024 Telephone encounter Note The patient requests a call from Libia.. Gretchen Navarrete [facility] 11-23-2024 Note [facility] 11-16-2024 Note [facility] 11-14-2024 Note [facility] 11-12-2024 Telephone encounter Note I called patient and left a voicemail for her and her father and explained that she should come to the [facility] ED if she is having N, V, high output, or dehydration so that we can evaluate her here and determine what is needed for optimization for surgery. I also explained that the physicians and the hospital she is evaluated at can request transfer to [facility]. [facility] 11-12-2024 Miscellaneous Notes I called patient and left a voicemail for her and her father and explained that she should come to the [facility] ED if she is having N, [...] back to reschedule documented in this encounter [facility] 11-12-2024 Telephone encounter Note Patient called in to cancel today's appointment because she going to the Emergency room now and she will call back to reschedule [facility] 11-06-2024 Telephone encounter Note Transitional Care Management (TCM) [facility] Monitoring Program Provider Action / FYI: na SUMMARY: Outreach type: INITIAL OUTREACH Discharge Network Status: In-Network Discharge Source of Patient: [facility] TCM Discharge Report Patient discharged from [facility] on 10.26.24. Admitted for Intractable diarrhea . Contact made with patient: No - next outreach attempt will be on next business day. Rico Minor November 06, 2024 4:23 PM [facility] 11-06-2024 Miscellaneous Notes Transitional Care Management (TCM) [facility] Provider Action / FYI: na SUMMARY: Outreach type: INITIAL OUTREACH Discharge Network Status: In-Network Discharge Source of Patient: [facility] TCM Discharge Report Patient discharged from [facility] on 10.26.24. Admitted for Intractable diarrhea . Contact made with patient: No - next outreach attempt will be on next business day. Rico Minor November 06, 2024 4:23 PM documented in this encounter [facility] 11-05-2024 Telephone encounter Note I called Daly and she was disharged from [facility] last week 10/30 to 11/05/24 for [...] TPN management CT chest w IV con [facility] 11-05-2024 Miscellaneous Notes I called Daly and she was disharged from [facility] last week 10/30 to 11/05/24 for [...] for this request documented in this encounter [facility] 11-05-2024 Telephone encounter Note Patient called in requesting an appointment with Dr. Devine can an order be put in for this request [facility] 11-05-2024 Note [facility] 10-30-2024 Telephone encounter Note Record ID: [id number] Patient name: Daly Evans Date: October 30, [...] since you first noticed them? -> Same [facility] 10-30-2024 Miscellaneous Notes Record ID: [id number] Patient name: Daly Evans Date: October 30, [...] them? -> Same documented in this encounter [facility] 10-26-2024 History of Present illness Narrative [...] attend because she is currently admitted to [facility] for diarrhea exacerbation associated with JONATAN, hyponatremia, and hypokalemia. She will be rescheduled. Daly Estrella Cristina 10/26/2024 documented in this encounter [facility] 10-26-2024 Note HNO ID: [id number] Author: MORENA PALACIOS LSW Service: Care Management Author Type: Php Architect Type: Care Mgt Progress Note Filed: 10/26/2024 12:47 Note Text: CARE MANAGEMENT PROGRESS NOTE SERVICE DATE: 10/26/2024 SERVICE TIME: 12:41 PM LOS: 7 days Chart reviewed. Pt admitted from [facility] for intractable diarrhea. She has an ostomy. [...] will discharge to her parents home at: [address], [place]. CHRISTY let Cornelius know this. SIGNATURE: CHANELL Stewart PATIENT NAME: Daly Evans DATE: October 26, 2024 TIME: 12:41 PM [facility] 10-25-2024 Note HNO ID: [id number] Author: WILLIS EMMANUEL DO Service: Hospital Medicine [...] resection with ostomy [facility] high output ostomy She had evidence of renal failure as well as multiple electrolyte abnormalities (see below) Gastroenterology is following C. diff negative Stool PCR negative Continue scheduled Imodium 4 mg TID Acute kidney injury Creatinine 2.8 [facility] Likely secondary to GI losses Creatinine now normalized Hyponatremia Sodium 130 [facility] Likely secondary to GI losses Sodium now 135 today Hypokalemia Potassium 3.3 [facility] Likely secondary to GI losses Still 3.4 today Will again supplement Left foot discoloration, ?gangrene Left toes are black, per patient this began [facility] Chart review indicates she had bilateral lower extremity tibial thromboemboli and underwent thromboembolectomy of the anterior tibial, posterior tibial, and peroneal arteries Podiatry following X-rays obtained on 10/23 showed no evidence of osteomyelitis I spoke with Dr. Garcia yesterday, he has no immediate plans for surgical intervention th (more content not included)... [facility] 10-24-2024 Note HNO ID: [id number] Author: WILLIS EMMANUEL DO Service: Hospital Medicine [...] resection with ostomy [facility] due to high output ostomy She had evidence of renal failure as well as multiple electrolyte abnormalities (see below) Gastroenterology is following C. diff negative Stool PCR negative Continue scheduled Imodium 4 mg TID Acute kidney injury Creatinine 2.8 [facility] Likely secondary to GI losses Creatinine now normalized Hyponatremia Sodium 130 in [facility] Likely secondary to GI losses Sodium now 133 today Hypokalemia Potassium 3.3 [facility] Likely secondary to GI losses Still 3.4 today Will again supplement Left foot discoloration, ?gangrene Left toes are black, per patient this began [facility] Chart review indicates she had bilateral lower extremity tibial thromboemboli and underwent thromboembolectomy of the anterior tibial, posterior tibial, and peroneal arteries Podiatry following X-rays obtained yesterday showed no evidence of osteomyelitis I spoke with Dr. Garcia today, he has no immediate (more content not included)... [facility] 10-24-2024 Note HNO ID: [id number] Author: MORENA PALACIOS LSW Service: Care Management Author Type: Php Architect Type: Care Mgt Progress Note Filed: 10/24/2024 12:21 Note Text: CARE MANAGEMENT PROGRESS NOTE SERVICE DATE: 10/24/2024 SERVICE TIME: 9:36 AM LOS: 5 days Chart reviewed. Pt admitted from [facility] for intractable diarrhea; she has an ostomy. GI consulted for high ostomy output, they signed off yesterday 10/23. Podiatry consulted for left foot discoloration/gangrene. DC plan is to return to [facility] for wound care; precert started today. Post acute checklist on chart, will need wheelchair transport. SIGNATURE: CHANELL Stewart PATIENT NAME: Daly Evans DATE: October 24, 2024 TIME: 9:36 AM [facility] 10-23-2024 Note HNO ID: [id number] Author: WILLIS EMMANUEL DO Service: Hospital Medicine [...] resection with ostomy [facility] to high output ostomy She had evidence of renal failure as well as multiple electrolyte abnormalities (see below) Gastroenterology is following C. diff negative Stool PCR negative Continue scheduled Imodium, increase today to 4 mg TID Acute kidney injury Creatinine 2.8 [facility] Likely secondary to GI losses Creatinine now normalized Hyponatremia Sodium 130 [facility] Likely secondary to GI losses Sodium now 133 today Hypokalemia Potassium 3.3 [facility] Likely secondary to GI losses Still 3.4 today Will again supplement Left foot discoloration, ?gangrene Left toes are black, per patient this began [facility] Chart review indicates she had bilateral lower extremity tibial thromboemboli and underwent thromboembolectomy of the anterior tibial, posterior tibial, and peroneal arteries Continue therapeutic Lovenox Podiatry now following X-rays obtained today showed no evidence of osteomyelitis Continue local wound care Chronic comorbidities Bipolar disorder Anxiety Hx of substance abuse SIGNATURE: Willis Emmanuel, (more content not included)... [facility] 10-23-2024 Note HNO ID: [id number] Author: YOHANA GARCIA III, DPM Service: Podiatry Author Type: Physician Type: Progress Notes Filed: 10/23/2024 17:49 Note Text: Podiatry Progress Note: X-rays reviewed. No signs of fracture or osteomyelitis or soft tissue gas. Gangrene is dry and stable. Continue wound care. Will follow as outpatient. Yohana Garcia III, DPM FACFAS 5:48 PM [facility] 10-22-2024 Note HNO ID: [id number] Author: WILLIS EMMANUEL DO Service: Hospital Medicine [...] resection with ostomy [facility] to high output ostomy She had evidence of renal failure as well as multiple electrolyte abnormalities (see below) Gastroenterology is following C. diff negative Stool PCR negative Scheduled Imodium started today (2 mg QID) Acute kidney injury Creatinine 2.8 [facility] Likely secondary to GI losses Creatinine now normalized Will stop IV fluids Hyponatremia Sodium 130 in [facility] Likely secondary to GI losses Sodium now 136 today Stopping IV fluids Hypokalemia Potassium 3.3 [facility] Likely secondary to GI losses Still 3.2 today Will again supplement Left foot discoloration, ?gangrene Left toes are black, per patient this began while she [facility] Chart review indicates she had bilateral lower extremity tibial thromboemboli and underwent thromboembolectomy of the anterior tibial, posterior tibial, and peroneal arteries Continue ther (more content not included)... [facility] 10-22-2024 Note HNO ID: [id number] Author: WILLIS EMMANUEL DO Service: Hospital Medicine Author Type: Physician Type: Progress Notes Filed: 10/22/2024 15:27 Note Text: Documentation Query Please clarify the diagnosis associated with the clinical indicators for this patient Provider Response: Hypokalemia supported by: Oral Supplement of Potassium chloride and IV Infusion of Potassium chloride This document will become part of the patient's medical record. [facility] 10-22-2024 Note HNO ID: [id number] Author: MORENA PALACIOS LSW Service: Care Management Author Type: Php Architect Type: Care Mgt Initial Assessment Filed: 10/22/2024 12:51 Note Text: CARE MANAGEMENT: ASSESSMENT AND DISCHARGE PLAN SERVICE DATE: October 22, 2024 SERVICE TIME: 12:43 PM PCP: Fredrick L Boland, DO Primary Contact: Extended Emergency Contact Information Primary Emergency Contact: Ernst Evans Mobile Relation: Father Secondary Emergency Contact: Mary Evans [facility] Relation: Mother Admission Status: Inpatient Insurance Provider: [employer]LA [employer] MEDICAID Discharge Planning requested by: Potential Transition Plans Advance Directives Current Living Arrangements and Support Lives with: Type of Residence: Support: Current Services/Equipment Discharge Planning Patient Goal(s): [place] of Choice Explained: Are you interested in [...] In the past 12 months has the [employer] gas, oil, or water [employer] threatened to shut off services in your home?: No Post-Acute Discharge Plan: Chart reviewed. Pt admitted from [facility] for intractable diarrhea. She has an extensive medical history: [place]: 08/20/2024: Small bowel resection, Ileocecectomy with general surgery. 08/20/24: Bilateral below-knee popliteal cutdown, Thromboembolectomy of AT, PT and peroneal arteries. Primary repair of tibial arteriotomies. Bilateral lower extremity 4 compartment fasciotomies with vascular surgery. 08/22/2024: Second look laparotomy, loop-end jejunosotomy. 08/23/2024: BLE fasciotomy closure. She is currently having high ostomy output. GI consulted. Pt will return to [facility] at discharge. Will need auth to return; she was skilled for wound care. Will need transportation. SIGNATURE: CHANELL Stewart PATIENT NAME: Daly Evans DATE: October 22, 2024 TIME: 12:43 PM [facility] 10-21-2024 Note HNO ID: [id number] Author: WILLIS EMMANUEL DO Service: Hospital Medicine [...] resection with ostomy [facility] high output ostomy She had evidence of renal failure as well as multiple electrolyte abnormalities (see below) Gastroenterology is following C. diff negative Stool PCR collected, results pending Antimotility agent being deferred for now until infectious etiology is ruled out Acute kidney injury Creatinine 2.8 [facility] Likely secondary to GI losses Continue IV fluids via lactated Ringer's at 150 cc/hour Creatinine now normalized Hyponatremia Sodium 130 [facility] Likely secondary to GI losses Continue IV fluids as outlined above Sodium now 135 today Hypokalemia Potassium 3.3 [facility] Likely secondary to GI losses Still 2.8 today Will supplement Chronic comorbidities Hx of DVT Bipolar disorder Anxiety Hx of substance abuse SIGNATURE: Willis Emmanuel DO PATIENT NAME: Daly Evans DATE: October 21, 2024 TIME: 11:49 PM [facility] 10-21-2024 Note HNO ID: [id number] Author: TUNG JENNINGS MD Service: Gastroenterology Author [...] October 21, 2024 TIME: 12:09 PM PAGER: [facility] 10-20-2024 Note HNO ID: [id number] Author: WILLIS EMMANUEL DO Service: Hospital Medicine [...] resection with ostomy [facility] to high output ostomy She had evidence of renal failure as well as multiple electrolyte abnormalities (see below) Gastroenterology is following Stool PCR ordered Antimotility agent being deferred for now until infectious etiology is ruled out Acute kidney injury Creatinine 2.8 [facility] Likely secondary to GI losses Continue IV fluids via lactated Ringer's at 150 cc/hour Hyponatremia Sodium 130 in [facility] Likely secondary to GI losses Continue IV fluids as outlined above Hypokalemia Potassium 3.3 [facility] Likely secondary to GI losses Will supplement Chronic comorbidities Hx of DVT Bipolar disorder Anxiety Hx of substance abuse SIGNATURE: Willis Emmanuel DO PATIENT NAME: Daly Evans DATE: October 20, 2024 TIME: 4:15 PM [facility] 10-12-2024 Note HNO ID: [id number] Author: JAKE MORALES RN Service: Care Management Author Type: Registered Nurse Type: Care Mgt Progress Note Filed: 10/12/2024 12:02 Note Text: CARE MANAGEMENT DISCHARGE NOTE SERVICE DATE: October 12, 2024 SERVICE TIME: 11:57 AM Admission Date: 10/09/2024 LOS: 0 days Discharge Arrangement Pt to discharge to [facility] this date at 1200, father to transport pt. Services Arranged [facility]. Provider Name: Dr. Fredrick Boland Caregiver Assessment SNF staff. Transportation Arrangements This RN cancelled transportation setup as pt's father can now transport pt. Handoff Communication: Summary of care sent to PCP and GI. Additional Information: Pt to discharge to [facility] this date at 1200, father to transport pt. No precert or HENS form needed. Discharge packet completed and on chart. Shanta RN called report and placed AVS in discharge packet. This RN sent updates via [employer]. Pt, attending, RN, charge histotechnologist, and Niki from SNF notified of and agreeable to discharge plan. LOC SNF. Case closed. Discharge Information Row Name Admission (Current) from 10/09/2024 in MR 10M MED/SURG Assisted Facility Agency [facility] -- Phone# -- SIGNATURE: Jake Morales RN PATIENT NAME: Daly Evans DATE: October 12, 2024 TIME: 11:57 AM [facility] 10-12-2024 Note HNO ID: [id number] Author: SHANTA MIMS RN Service: Nursing Author Type: Registered Nurse Type: Nursing Progress Note Filed: 10/12/2024 10:30 Note Text: Report called to R[place] [facility] [facility] 10-11-2024 Note HNO ID: [id number] Author: JAKE MORALES RN Service: Care Management [...] PICC placed for IV access. 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 Pt stated that discharge plan is to return to [facility], SNF can accept pt back without precert. Pt denies use of DME. Pt + for PCP, Rx, and insurance. Pt needs transportation on discharge, pt aware of possible OOP costs and agreeable. Pt denies using DME. Per attending, pt will not discharge today due to restarting Lovenox and monitoring for any further episodes of hematemesis before discharging. Current discharge plan [facility]. CM will follow for and assist with [...] DATE: October 11, 2024 TIME: 2:19 PM [facility] 10-11-2024 Note HNO ID: [id number] Author: DIANDRA MARTINEZ MD Service: General Internal [...] Component Value Units Date/Time BACTERIAL CULTURE, URINE [[id number]] (Abnormal) Collected: 09/21/24914 Order Status: Completed Specimen: [...] Component Value Units Date/Time BACTERIAL CULTURE, URINE [[id number]] (Abnormal) Collected: 09/21/24914 Order Status: Completed Specimen: [...] Lovenox Hx acute (more content not included)... [facility] 10-10-2024 Note HNO ID: [id number] Author: DIANDRA MARTINEZ MD Service: General Internal [...] Component Value Units Date/Time BACTERIAL CULTURE, URINE [[id number]] (Abnormal) Collected: 09/21/24914 Order Status: Completed Specimen: [...] Component Value Units Date/Time BACTERIAL CULTURE, URINE [[id number]] (Abnormal) Collected: 09/21/24914 Order Status: Completed Specimen: [...] ordered Hypoglycemia protocol (more content not included)... [facility] 10-10-2024 Note HNO ID: [id number] Author: LONNIE, JAKE, RN Service: Care Management Author Type: Registered Nurse Type: Care Mgt Initial Assessment Filed: 10/10/2024 14:33 Note Text: CARE MANAGEMENT: ASSESSMENT AND DISCHARGE PLAN SERVICE DATE: October 10, 2024 SERVICE TIME: 2:17 PM PCP: Fredrick Boland DO Primary Contact: Extended Emergency Contact Information Primary Emergency Contact: Ernst Evans Mobile Relation: Father Secondary Emergency Contact: Mary Evans [facility] Relation: Mother Admission Status: Observation Insurance Provider: CARLA MUÑOZ MEDICAID Discharge Planning requested by: Per Department Practice Potential Transition Plans To Be Determined Advance Directives Current Advance Directive: None Current Living Arrangements and Support Lives with: (At [facility] Type of Residence: Assisted Facility Does the patient have to climb stairs at home?: No Care Facility Name: [facility]. Support: Parent, Family members How do you manage to accomplish the following: Independent: Ambulation, Bathe/Shower, Dress, Going to the bathroom Dependent: Meals/Meal Prep, Medication Management, Transportation to appointments/community Current Services/Equipment Current Post-Acute Service(s): None Discharge Planning Patient Goal(s): General wellness [place] of Choice Explained: Are you interested in bedside delivery of your medications? 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 Pt stated that discharge plan is to return to SNF, this RN requested that [facility] [...] In the past 12 months has the [employer], gas, oil, or water [employer] threatened to shut off services in your home?: No Social Information Financial Resources: Unemployed SIGNATURE: Jake Morales RN PATIENT NAME: Daly Evans DATE: October 10, 2024 TIME: 2:17 PM [facility] 10-10-2024 Note HNO ID: [id number] Author: CHARLEE ROGERS RN Service: PICC Team Author Type: Registered Nurse Type: Procedures Filed: 10/10/2024 08:37 Note Text: MIDLINE INSERTION PROCEDURE NOTE - PICC TEAM NURSES DATE OF PROCEDURE: 10/10/2024 TIME OF PROCEDURE: 0800 ORDERING PHYSICIAN: Alycia Rawls CNP Indications for line placement: Intravenous access Condition of line placement: Sterile Primary Proceduralist: Shawn Vasquez RN Restaurant Kitchen And Service Manager: Charlee Rogers RN Pre-procedure Review: ALLERGIES Allergen [...] with the procedure. Special equipment utilized [facility]. Patient/Surrogate Stated/Verified: Patient name, Date of [...] patients). Midline Catheter Placement: Brand: BARD Lot: [id number] Number of lumens: 1 Type of Midline: [...] Vascular Access Nurse on [facility] SIGNATURE: Charlee Rogers RN PATIENT NAME: Daly Evans DATE: October 10, 2024 TIME: 8:34 AM PAGER: Call [facility] 10-10-2024 Telephone encounter Note Scheduled. Message left for patient to confirm. Hospital will print at discharge. [facility] Work Phone: 10-10-2024 Miscellaneous Notes Scheduled. Message left for patient to confirm. Hospital will print at discharge. I see she is currently admitted to the hospital for accidental overdose. Please schedule her for follow-up with me after discharge to discuss recent lab work she had done at her initial consultation here. Jamie Ballesteros DO documented in this encounter [facility] 10-09-2024 Note HNO ID: [id number] Author: LETTY ARAUZ RDMS Service: Radiology Author [...] PATIENT PRESENTS WITH AN IMPLANTABLE OR ATTACHED REPAIR SERVICER: No RADIOLOGY DEPARTMENT: Ultrasound PERIPHERAL IV DATA: Not applicable SIGNED BY: Letty Arauz RDMS October 09, 2024 7:05 PM [facility] 10-09-2024 Telephone encounter Note I see she is currently admitted to the hospital for accidental overdose. Please schedule her for follow-up with me after discharge to discuss recent lab work she had done at her initial consultation here. Jamie Ballesteros DO [facility] Work Phone: 10-08-2024 Telephone encounter Note We were able to complete the virtual education visit as scheduled. [facility] 10-08-2024 Miscellaneous Notes We were able [...] this morning his call back number is [phone] documented in this encounter [facility] 10-08-2024 Telephone encounter Note I returned her father's call and got voicemail at the number he asked me to call and left a message. I then tried to call his cell and got voicemail as well and left another message. [facility] 10-08-2024 Telephone encounter Note Patient father called in stated he would like a call back this morning concerning the phone visit scheduled at 10am this morning his call back number is [phone] [facility] 10-08-2024 Telephone encounter Note Images from the original note were not included. [facility] AND TRANSPLANT VIRTUAL EDUCATION VISIT REFERRAL: Referring Physician: Dr. Peter Smith ([facility]) Reason for Referral: Surgical rehabilitation Referring Diagnosis: SMA occlusion, disconnected SBS, on TPN HISTORY: Daly Estrella Lover is a 39 year old single female from [place], [place] ([address], supportive father) with a [...] DC to SNF 09/03/24 and referred to [facility] Surgical Teams for STEP [...] 11.5 oz) on 09/03/24 - BMI 30.9 Assisted Facility Attending Physician manages her TPN. Dr. [...] Tuesday10/22/24, with labs in A30 at noon. [facility] 10-08-2024 Miscellaneous Notes Images from the original note were not included. [facility] AND TRANSPLANT VIRTUAL EDUCATION VISIT REFERRAL: Referring Physician: Dr. Peter Smith ([facility]) Reason for Referral: Surgical rehabilitation Referring Diagnosis: SMA occlusion, disconnected SBS, on TPN HISTORY: Daly Estrella Lover is a 39 year old single female from [place], [place] ([address], supportive father) with a [...] DC to SNF 09/03/24 and referred to [facility] Surgical Teams for STEP [...] 11.5 oz) on 09/03/24 - BMI 30.9 Assisted Facility Attending Physician manages her TPN. Dr. [...] A30 at noon. documented in this encounter [facility] 10-03-2024 Telephone encounter Note Faxed. Irma Avila RN [facility] 10-03-2024 Miscellaneous Notes Faxed. Irma Avila RN [facility] called requesting office visit notes from yesterday be faxed to them at [phone] documented in this encounter [facility] 10-03-2024 Telephone encounter Note [facility] Al[facility] called requesting office visit notes from yesterday be faxed to them at [phone] [facility] Work Phone: 10-02-2024 History of Present illness Narrative Patient referred by Dr. 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 HPI: The patient is a 39-year-old female with past medical history as outlined below. Presented to the ED at [facility]. 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 Sent to [facility]. Surgical notes reviewed. Heterozygous factor V [...] PAST MEDICAL HISTORY Diagnosis Date Attempted suicide ([facility]) polysubstance Bipolar depression ([facility]) [facility] Gestational diabetes mellitus in ([facility]) Impaired fasting blood sugar 06/2015 a1c 5.7% [...] has follow-up scheduled with vascular medicine at [facility]. - Recheck protein C&S today. - Her weight is 90 kg. Check low molecular weight heparin assay. - Check anticardiolipin and antibeta 2 glycoprotein antibodies today. -Plan on rotating to Coumadin once more stable as outlined above. I spent a total of 60 minutes on the date of the service which included preparing to see the patient, [id number] patient care, completing clinical documentation, obtaining and/or reviewing separately obtained history, performing a medically appropriate examination, counseling and educating the patient/family/caregiver, ordering medications, tests, or procedures, communicating with other HCPs (not separately reported), and communicating results to the patient/family/caregiver. Jamie Ballesteros DO documented in this encounter [facility] 09-27-2024 Note . MICRO - Microbiology [...] Locations *1: This test was performed at: [address], [facility] , [facility] 09-27-2024 Note . MICRO - Microbiology PROCEDURE: [...] Locations *1: This test was performed at: [address], [facility] , [facility] 09-27-2024 Note . MICRO - Microbiology PROCEDURE: [...] Locations *1: This test was performed at: [facility], [address] [place] [address], [id number]- , [facility] 09-22-2024 Note . MICRO - Microbiology PROCEDURE: [...] Locations *1: This test was performed at: [facility], [address] [place] [address], [facility] , [facility] 09-20-2024 Note . MICRO - Microbiology PROCEDURE: [...] Locations *1: This test was performed at: [facility], [address] [place] [address], [id number]- , [facility] 09-19-2024 History of Present illness Narrative Images from the original note were not included. Heart , Vascular [facility] Thoracic [place] DEPARTMENT OF VASCULAR SURGERY OUTPATIENT VISIT DATE [...] fasciotomy sites healed. No s/s of infection. Nekoma removed and pt tolerated. Imaging today shows [...] - Return sooner if clinically indicated SIGNATURE: Zaira Blackwood APRN.CNP PATIENT NAME: Daly Evans DATE: September 19, 2024 TIME: 1434 documented in this encounter [facility] 09-17-2024 Note Discharge Instructio ns Discharge Summary [address] [address] [id number] 09/17/2024 Patient: DALY EVANS Sex: Female : 1985 Age: 39y Thank you for visiting [facility]. You have been evaluated today [...] by patient. Follow-up with: Maggie Putnam MD, [facility], Internal Medicine, Phone: [phone], [address] [facility] [address] [place] [id number]. Follow up in two days. Reason for referral: evaluation and treatment. Summary of care provided to follow-up provider and patient. Patient Signature 1 of 2 Discharge Instructions Facility Sleeve Machine Tender Date/Time General Instructions with ExitWriter [address] [address] [id number] 09/17/2024 Patient: DALY EVANS Sex: Female : 1985 Age: 39y Thank you for visiting [facility]. You have been evaluated today [...] by patient. Follow-up with: Maggie Putnam MD, [facility], Internal Medicine, Phone: [phone], [address] [place] [address]. Follow up in two days. Reason for referral: evaluation and treatment. Summary of care provided to follow-up provider and patient. 2 of 2 [facility] 09-12-2024 Telephone encounter Note Called placed to Stefany at the pt's snf facility. Spoke to Stefany and she gave me the patient's room phone number. Tried calling the [phone] (pt's room phone number) but the pt did not answer and I was unable to leave a message. Will try again tomorrow. [facility] 09-12-2024 Miscellaneous Notes Called placed to Stefany at the pt's snf facility. Spoke to Stefany and she gave me the patient's room phone number. Tried calling the [phone] (pt's room phone number) but the pt did not answer and I was unable to leave a message. Will try again tomorrow. documented in this encounter [facility] 09-12-2024 Telephone encounter Note Scheduled with Stefany. [facility] Work Phone: 09-12-2024 Miscellaneous Notes Scheduled with Stefany. 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 Okay to schedule with either physician. Donna Hill LPN Received call from Stefany bazan [facility] [place] stating Dr. Putnam would like patient to be seen by hematology, discharge papers showing blood clots. Patient had been seen at [facility] in vascular. 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 Okay to schedule with either physician. Donna Hill LPN [facility] 09-12-2024 Telephone encounter Note Received call from Stefany bazan [facility] Alarcon stating Dr. Putnam would like patient to be seen by hematology, discharge papers showing blood clots. Patient had been seen at [facility] in vascular. Please advise Stefany at [phone] [facility] 09-11-2024 Telephone encounter Note Jose Cutler, Looks like this patient was discharged to a facility. Maybe Stefany knows of a way to reach the patient directly? Thanks, Shi [facility] 09-11-2024 Miscellaneous Notes Jose Omayra, Looks like this patient was discharged to a facility. Maybe Stefany knows of a way to reach the patient directly? Shi Vargas Stefany from the [facility] sn[facility] is calling in stating that the patients discharge instructions state to consult with the center for gut rehab regarding patients short bowel syndrome. Stefany is asking for a call back at [phone]. documented in this encounter [facility] 09-11-2024 Telephone encounter Note Stefany from the [facility] sn[facility] is calling in stating that the patients discharge instructions state to consult with the center for gut rehab regarding patients short bowel syndrome. Stefany is asking for a call back at [phone]. [facility] 09-10-2024 Telephone encounter Note 2nd call placed, left a vm. Letter sent as well. Will close referral on 09/17 if I do not hear back. [facility] 09-10-2024 Miscellaneous Notes 2nd call placed, left a vm. Letter sent as well. Will close referral on 09/17 if I do not hear back. documented in this encounter [facility] 09-06-2024 Telephone encounter Note Called pt but was unable to leave vm due to vm box full. Tried calling her father Ernst and left him a vm to give our office a call back to begin referral for short bowel. [facility] 09-06-2024 Miscellaneous Notes Called pt but was unable to leave vm due to vm box full. Tried calling her father Ernst and left him a vm to give our office a call back to begin referral for short bowel. documented in this encounter [facility] 09-05-2024 Telephone encounter Note Triage please? Stefany from snf facility called for appt for patient with Dr Goncalves.Patient had surgery with Dr Palomares in Jul 2024 please advise? Thanks, [facility] 09-05-2024 Miscellaneous Notes Triage please? Stefany from snf facility called for appt for patient with Dr Goncalves.Patient had surgery with Dr Palomares in Jul 2024 please advise? Thanks, Reason for call: Stefany would like to schedule an appointment with Dr Goncalves for f/up Home and cell number [phone] Diagnosis-f/up Kev Cedeno documented in this encounter [facility] 09-05-2024 Telephone encounter Note Reason for call: Stefany would like to schedule an appointment with Dr Goncalves for f/up Home and cell number [phone] Diagnosis-f/up Venkatesh judgeKev [facility] 09-03-2024 Telephone encounter Note Received referral from referral triage for short bowel. Will call the pt for intake once discharged. [facility] 09-03-2024 Miscellaneous Notes Received referral from referral triage for short bowel. Will call the pt for intake once discharged. documented in this encounter [facility] 08-29-2024 Telephone encounter Note Left multiple messages by phone sent my chart message. [facility] 08-29-2024 Telephone encounter Note ----- Message from Xochilt Gaston APRN.DUSTER TENDER sent at 08/08/2024 4:07 PM EST ----- Routing information can be restored upon returning to the encounter [facility] 08-29-2024 Miscellaneous Notes Left multiple messages by phone sent my chart message. ----- Message from Xochilt Gaston APRN.DUSTER TENDER sent at 08/08/2024 4:07 PM EST ----- Routing information can be restored upon returning to the encounter Line busy will need to try back. ----- Message from Xochilt Gaston APRN.CNP sent at 08/08/2024 4:07 PM EST ----- Routing information can be restored upon returning to the encounter Called and left message on patients voicemail to return call to the office and ask to speak with a triage nurse. Lauren Hull MA ----- Message from Xochilt Gaston APRN.JUANY sent [...] range. No other concerns. Xochilt Gaston APRN.JUANY documented in this encounter [facility] 08-29-2024 Telephone encounter Note Line busy will need to try back. [facility] 08-29-2024 Telephone encounter Note ----- Message from Xochilt Gaston APRN.DUSTER TENDER sent at 08/08/2024 4:07 PM EST ----- Routing information can be restored upon returning to the encounter [facility] 08-20-2024 History of Present illness Narrative Images from the original note were not included. Critical Care Transport Note Patient Name: Daly Evans Service Date: 08/20/24 Referring Physician: Jeannine Referring Facility: [facility] Accepting Physician: David Accepting Facility: [facility] SUBJECTIVE/CHIEF COMPLAINT: abdominal pain, nausea REASON [...] and vit D deficiency. She presented to [facility] early this AM for evaluation of [...] managing the patient requested transfer to the [facility] for tertiary and/or quaternary services unavailable at the referring facility. The physician managing the patient requested the [facility] Critical Care Transport Team transport and treat the patient for the purpose of tertiary care, evaluation, and management of her acute aortic mural thrombus with SMA occlusion condition(s). Air medical transport was requested to reduce the ynf-ky-ogbhjudr time, 19 minutes by air vs. approximately [...] (HCC) polysubstance Bipolar depression (HCC) [facility] Gestational diabetes mellitus in Impaired fasting [...] SaO2 >/= 93% - Expedite transport to [facility] for further workup and care The transport was completed without significant incident or change in the patient's status. The patient was transported to the the [facility] by [employer]otor (Helicopter) for tertiary and/or quaternary evaluation and management of her Emergent Surgical condition(s). Upon arrival to the receiving facility, a nxgg-zm-atnt report was given to bedside nursing staff in [facility] and bedside medical team . Patient care [...] pain and the Cardiovascular impairment, Respiratory impairment, ROLLER CLEANER impairment, Shock, Cardiac Arrest, and Severe metabolic abnormality which the patient had and/or had a high probability of suddenly developing. SIGNATURE: Katelyn Villagran APRN.CNP Acute Care Nurse Practitioner [facility] Critical Care Transport Team documented in this encounter [facility] 08-20-2024 Procedure note Procedure(s): ARTERIAL LINE [...] APRN.CNP PATIENT NAME: Daly Evans DATE: 08/20/24 [facility] 08-20-2024 Procedure note Procedure(s): ARTERIAL LINE [...] Evans DATE: 08/20/24 documented in this encounter [facility] 08-16-2024 History of Present illness Narrative Chief Complaint Patient presents with: Acute Visit: Cough, chest congestion & discomfort x 1 week HPI Daly Estrella Lover is a 38 year [...] (HCC) polysubstance Bipolar depression (HCC) [facility] Gestational diabetes mellitus in [...] Time: 3:37 PM documented in this encounter [facility] 08-10-2024 Telephone encounter Note Called and left message on patients voicemail to return call to the office and ask to speak with a FM triage nurse. Lauren Hull MA [facility] 08-08-2024 Telephone encounter Note ----- Message from Xochilt Gaston APRN.CNP sent at 08/08/2024 4:07 PM EST ----- Routing information can be restored upon returning to the encounter [facility] 08-08-2024 Telephone encounter Note Left message to return call Akiko Pettit MA [facility] 08-08-2024 Telephone encounter Note Please let her [...] range. No other concerns. Xochilt Gaston APRN.CNP [facility] 08-07-2024 Telephone encounter Note Lexapro and Zyprexa prescription was sent to the patient's pharmacy. [facility] 08-07-2024 Miscellaneous Notes Lexapro and Zyprexa [...] medication management. Thanks! documented in this encounter [facility] 08-07-2024 Telephone encounter Note Appreciate the update. Glad her EKG was normal and she was able to come in to see you. Will send in her refills. [facility] 08-07-2024 Telephone encounter Note Jose Tipton, We did Daly's EKG today and it looks great, completely normal. She asked me to let you know because you needed it for medication management. Thanks! [facility] 08-07-2024 History of Present illness Narrative [...] Vaccine(1) due on 02/26/2024 Covid-19 Vaccine( - ) Never done DTaP,Tdap,Td Vaccine(2 - Td or [...] Xochilt Gaston APRN.JUANY documented in this encounter [facility] 05-20-2024 Instructions Clayton Granados APRN.JUANY - 05/20/2024 9:38 PM EST TREATMENT PLAN: Discontinue Lamictal and Trazodone and patient stopped taking them due to reporting lack of efficacy. Complete monitoring lab work and EKG due to the risk of side effects due to oil heaterman use of the combination of medication prescribed [...] --call the National Suicide Prevention Lifeline at 809 (841-747-1933) --text the Crisis Text Line (text HOME to 607945) --call 911 and let them know you are having a mental health crisis or go to your nearest Emergency Room for stabilization. --You can also call Mobile Crisis at [phone]. -- You may call the department appointment line at [phone] to schedule your appointment. -- Please call my nurse at [phone] or send me a message in BloomBoard with any questions or concerns between appointments. documented in this encounter [facility] 05-18-2024 History of Present illness Narrative [...] visit. Either the patient or their legal cash application representative has been informed of the risks [...] this at her earliest availability due to mcfp side effect profile of her current medications. [...] ago. Has not been taking the Lamictal. [place] that she forgot to take it and [...] (HCC) polysubstance Bipolar depression (HCC) [facility]te Gestational diabetes mellitus [...] the risk of side effects due to mcfp use of the combination of medication prescribed [...] which included preparing to see the patient, kruf-yr-jpqg patient care, completing clinical documentation, and counseling and educating the patient/family/caregiver, ordering medications/labs. ADD ON PSYCHOTHERAPY CODE : No SIGNATURE: Clayton Granados APRN.CNP PATIENT NAME: Daly Evans DATE: May 18, 2024 TIME: 2:07 PM documented in this encounter [facility] 03-03-2024 History of Present illness Narrative Patient did not log in for their follow up visit with the provider today. documented in this encounter [facility] 01-30-2024 Telephone encounter Note Tried calling patient no answer or vm available, sent [employer] message [facility] 01-30-2024 Miscellaneous Notes Tried calling patient no answer or vm available, sent [employer] message documented in this encounter [facility] 01-19-2024 History of Present illness Narrative Patient did not attend her follow up appointment with the provider today. She did not answer her phone when she was contacted prior to the appointment time. It appeared that she had confirmed her appointment today. documented in this encounter [facility] 12-30-2023 History of Present illness Narrative Patient sent a mychart requesting to reschedule the appointment right before the visit. Patient has been assisted in rescheduling this visit. documented in this encounter [facility] 12-12-2023 Telephone encounter Note Prescription Refill [...] Caba MA December 12, 2023 8:34 AM [facility] 12-12-2023 Telephone encounter Note See refill encounter [facility] 12-12-2023 Miscellaneous Notes See refill encounter documented in this encounter [facility] 12-12-2023 Miscellaneous Notes Prescription Refill Information [...] 2023 8:34 AM documented in this encounter [facility] 09-27-2023 Miscellaneous Notes Patient has been [...] Satish Baez LPN. documented in this encounter [facility] 09-02-2023 History of Present illness Narrative [...] visit. Either the patient or their legal cash application representative has been informed of the risks [...] take 3 weeks off her job at [employer]. She is not having any luck in finding a job. The background check tends to be a barrier. She had tried to reach out to some [employer] agency. 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 [...] which included preparing to see the patient, wwju-af-gfko patient care, completing clinical documentation, obtaining and/or [...] TIME: 10:44 AM documented in this encounter [facility] 05-16-2023 History of Present illness Narrative [...] visit. Either the patient or their legal cash application representative has been informed of the risks [...] helping in 2 weeks by sending a [employer] message. 2. Continue the rest of the [...] looking for a job. Has applied to [employer]. She is worried that the background check [...] (HCC) polysubstance Bipolar depression (HCC) [facility] Reardonm[facility] Gestational diabetes mellitus in [...] which included preparing to see the patient, oxbd-on-hise patient care, completing clinical documentation, obtaining and/or [...] TIME: 4:03 PM documented in this encounter [facility] 04-18-2023 History of Present illness Narrative [...] visit. Either the patient or their legal cash application representative has been informed of the risks [...] would go to [place] [facility]. Would like to do it 3 days [...] (HCC) polysubstance Bipolar depression (HCC) [facility] Whyte Gestational diabetes mellitus [...] helping in 2 weeks by sending a [employer] message. 2. Continue the rest of the [...] which included preparing to see the patient, jiri-dx-qpkl patient care, completing clinical documentation, obtaining and/or reviewing separately obtained history, counseling and educating the patient/family/caregiver, ordering medications, tests, or procedures, and independently interpreting results (not separately reported). ADD ON PSYCHOTHERAPY CODE : No SIGNATURE: Clayton Granados APRN.CNP PATIENT NAME: Daly Evans DATE: April 18, 2023 TIME: 1:04 PM documented in this encounter [facility] 03-15-2023 Miscellaneous Notes Patient has [...] Tasia Rand LPN documented in this encounter [facility] 03-14-2023 Instructions Clayton Granados APRN.DUSTER TENDER - 03/14/2023 2:00 PM EDT Calixto Kauffman, It was good to talk with you today. Below is a summary of the plan that we discussed during your appointment for reference. Of course, if you have any questions or concerns do not hesitate to reach out to me via a message or call. Best, Clayton Granados ESTERS AND EMULSIFIERS SUPERVISOR.DUSTER TENDER PLAN AND FOLLOW UP: YOU SHOULD SEEK [...] - Call the National Suicide Hotline at 9-345-ZBLYUUB ( ) or 6-546-042-TALK (7637) - Text 4HUGE to 257470 Medication Update: Lexapro 20 mg - take 2 tablets once daily. Continue the rest of the psychiatric medications at the same dose. Other: Make an appointment to get EKG done. Next appointment: --Schedule in 4 to 6 weeks or sooner if needed -- You may call the department appointment line at [phone] to schedule your appointment. -- Please call my nurse Cassy at [phone] or send me a message in BloomBoard with any questions or concerns between appointments. documented in this encounter [facility] 03-14-2023 History of Present illness Narrative [...] visit. Either the patient or their legal cash application representative has been informed of the risks [...] which included preparing to see the patient, irly-rj-muje patient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 History of Past illness Narrative* Problem Noted Date Resolved Date 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 Overview: + urine tox on 11/04/2017 documented as of this encounter (statuses as of 12/08/2021) [address]2018 History of Past illness Narrative* Problem Noted Date Resolved Date 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 Overview: + urine tox on 11/04/2017 documented as of this encounter (statuses as of 12/15/2021) [facility] of Past illness Narrative* Problem Noted Date Resolved Date 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 Overview: + urine tox on 11/04/2017 documented as of this encounter (statuses as of 12/23/2021) [place] [address] History of Past illness Narrative* Problem Noted Date Resolved Date 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 Overview: + urine tox on 11/04/2017 documented as of this encounter (statuses as of 12/26/2021) [place] [address] History of Past illness Narrative* Problem Noted Date Resolved Date 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 Overview: + urine tox on 11/04/2017 documented as of this encounter (statuses as of 01/11/2022) [place] [address] History of Past illness Narrative* Problem Noted Date Resolved Date 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 Overview: + urine tox on 11/04/2017 documented as of this encounter (statuses as of 02/02/2022) [place] [address] History of Past illness Narrative* Problem Noted Date Resolved Date 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 Overview: + urine tox on 11/04/2017 documented as of this encounter (statuses as of 02/02/2022) [address]2018 History of Past illness Narrative* Problem Noted Date Resolved Date 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 Overview: + urine tox on 11/04/2017 documented as of this encounter (statuses as of 02/12/2022) [address] History of Past illness Narrative* Problem Noted Date Resolved Date 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 Overview: + urine tox on 11/04/2017 documented as of this encounter (statuses as of 03/09/2022) [address]2018 History of Past illness Narrative* Problem Noted Date Resolved Date 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 Overview: + urine tox on 11/04/2017 documented as of this encounter (statuses as of 03/29/2022) [place] [address] History of Past illness Narrative* Problem Noted Date Resolved Date 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 Overview: + urine tox on 11/04/2017 documented as of this encounter (statuses as of 04/09/2022) [place] [address] History of Past illness Narrative* Problem Noted Date Resolved Date 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 Overview: + urine tox on 11/04/2017 documented as of this encounter (statuses as of 05/10/2022) [place] [address] History of Past illness Narrative* Problem Noted Date Resolved Date 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 Overview: + urine tox on 11/04/2017 documented as of this encounter (statuses as of 05/10/2022) [place] [address] History of Past illness Narrative* Problem Noted Date Resolved Date 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 Overview: + urine tox on 11/04/2017 documented as of this encounter (statuses as of 05/11/2022) [place] [address] History of Past illness Narrative* Problem Noted Date Resolved Date 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 Overview: + urine tox on 11/04/2017 documented as of this encounter (statuses as of 05/24/2022) [place] [address] History of Past illness Narrative* Problem Noted Date Resolved Date 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 Overview: + urine tox on 11/04/2017 documented as of this encounter (statuses as of 06/06/2022) [facility] illness Narrative* Problem Noted Date Resolved Date 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 Overview: + urine tox on 11/04/2017 documented as of this encounter (statuses as of 07/02/2022) [facility] History of Past illness Narrative* Problem Noted Date Resolved Date 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 Overview: + urine tox on 11/04/2017 documented as of this encounter (statuses as of 07/06/2022) [address] History of Past illness Narrative* Problem Noted Date Resolved Date 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 Overview: + urine tox on 11/04/2017 documented as of this encounter (statuses as of 07/26/2022) [address] History of Past illness Narrative* Problem Noted Date Resolved Date 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 Overview: + urine tox on 11/04/2017 documented as of this encounter (statuses as of 08/09/2022) [address] History of Past illness Narrative* Problem Noted Date Resolved Date 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 Overview: + urine tox on 11/04/2017 documented as of this encounter (statuses as of 08/24/2022) [address] History of Past illness Narrative* Problem Noted Date Resolved Date 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 Overview: + urine tox on 11/04/2017 documented as of this encounter (statuses as of 09/13/2022) [address] History of Past illness Narrative* Problem Noted Date Resolved Date 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 Overview: + urine tox on 11/04/2017 documented as of this encounter (statuses as of 09/30/2022) [facility] History of Past illness Narrative* Problem Noted Date Resolved Date 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 Overview: + urine tox on 11/04/2017 documented as of this encounter (statuses as of 10/01/2022) [facility] History of Past illness Narrative* Problem Noted Date Resolved Date 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 Overview: + urine tox on 11/04/2017 documented as of this encounter (statuses as of 10/04/2022) [facility] History of Past illness Narrative* Problem Noted Date Resolved Date 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 Overview: + urine tox on 11/04/2017 documented as of this encounter (statuses as of 10/29/2022) [facility] History of Past illness Narrative* Problem Noted Date Resolved Date 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 Overview: + urine tox on 11/04/2017 documented as of this encounter (statuses as of 12/24/2022) [address] History of Past illness Narrative* Problem Noted Date Diagnosed Date Resolved Date Methamphetamine abuse 11/22/20172018 Overview: + urine tox on 11/04/2017 documented as of this encounter (statuses as of 01/03/2023) [address] History of Past illness Narrative* Problem Noted Date Diagnosed Date Resolved Date Methamphetamine abuse 11/22/20172018 Overview: + urine tox on 11/04/2017 documented as of this encounter (statuses as of 01/04/2023) [address] History of Past illness Narrative* Problem Noted Date Diagnosed Date Resolved Date Methamphetamine abuse 11/22/20172018 Overview: + urine tox on 11/04/2017 documented as of this encounter (statuses as of 01/06/2023) [facility] History of Past illness Narrative* Problem Noted Date Diagnosed Date Resolved Date Methamphetamine abuse 11/22/20172018 Overview: + urine tox on 11/04/2017 documented as of this encounter (statuses as of 02/25/2023) [facility] History of Past illness Narrative* Problem Noted Date Diagnosed Date Resolved Date Methamphetamine abuse 11/22/20172018 Overview: + urine tox on 11/04/2017 documented as of this encounter (statuses as of 03/15/2023) [address] History of Past illness Narrative* Problem Noted Date Diagnosed Date Resolved Date Methamphetamine abuse 11/22/20172018 Overview: + urine tox on 11/04/2017 documented as of this encounter (statuses as of 03/15/2023) [address] History of Past illness Narrative* Problem Noted Date Diagnosed Date Resolved Date Methamphetamine abuse 11/22/20172018 Overview: + urine tox on 11/04/2017 documented as of this encounter (statuses as of 04/22/2023) [address] History of Past illness Narrative* Problem Noted Date Diagnosed Date Resolved Date Methamphetamine abuse 11/22/20172018 Overview: + urine tox on 11/04/2017 documented as of this encounter (statuses as of 05/17/2023) [address] History of Past illness Narrative* Problem Noted Date Diagnosed Date Resolved Date Methamphetamine abuse 11/22/20172018 Overview: + urine tox on 11/04/2017 documented as of this encounter (statuses as of 05/24/2023) [address]2018 History of Past illness Narrative* Problem Noted Date Diagnosed Date Resolved Date Methamphetamine abuse 11/22/20172018 Overview: + urine tox on 11/04/2017 documented as of this encounter (statuses as of 2023) [facility] of Past illness Narrative* Problem Noted Date Diagnosed Date Resolved Date Methamphetamine abuse 11/22/20172018 Overview: + urine tox on 11/04/2017 documented as of this encounter (statuses as of 09/28/2023) [facility] Diagnosis Panic attacks Panic disorder without agoraphobia [facility] Diagnosis Bipolar affective disorder, current episode mixed, current episode severity unspecified (HCC)- Primary Alcohol abuse Alcohol abuse, unspecified Depressive disorder Depressive disorder, not elsewhere classified Panic attacks Panic disorder without agoraphobia ADD (attention deficit disorder) without hyperactivity Attention deficit disorder without mention of hyperactivity Legal intervention, bystander injured, initial encounter [facility] Diagnosis ELIJAH (generalized anxiety disorder)- Primary Generalized anxiety disorder Bipolar 2 disorder (HCC) Other bipolar disorders [facility] Diagnosis ADD (attention deficit disorder) without hyperactivity Attention deficit disorder without mention of hyperactivity [facility] Iron deficiency anemia, unspecified iron deficiency anemia type [facility] Diagnosis ELIJAH (generalized anxiety disorder)- Primary Generalized anxiety disorder Bipolar 2 disorder (HCC) Other bipolar disorders [facility] Diagnosis ELIJAH (generalized anxiety disorder) Generalized [facility] disorder [facility] ADD (attention deficit disorder) without hyperactivity Attention deficit disorder without mention of hyperactivity [facility] Diagnosis ELIJAH (generalized anxiety disorder)- Primary Generalized anxiety disorder Bipolar 2 disorder (HCC) Other bipolar disorders Panic disorder without agoraphobia [facility] ELIJAH (generalized anxiety disorder) Generalized anxiety disorder [facility] Diagnosis Bipolar 2 disorder (HCC)- Primary Other bipolar disorders Panic disorder without agoraphobia [facility] Diagnosis Bilateral hand pain- Primary Pain in limb Foot pain, bilateral Pain in limb Fatigue, unspecified type Myalgia Mylagia and myositis, unspecified Multiple joint pain Pain in joint, multiple sites Iron deficiency Iron deficiency anemia, unspecified [facility] Diagnosis ELIJAH (generalized anxiety disorder) Generalized anxiety disorder [facility] Diagnosis Panic disorder without agoraphobia- Primary Bipolar 2 disorder (HCC) Other bipolar disorders documented in this encounter [facility] note* Diagnosis Bilateral hand pain- Primary Pain in limb Elevated C-reactive protein (CRP) Bipolar affective disorder, current episode mixed, current episode severity unspecified (HCC) documented in this encounter [facility] note* Diagnosis NO SHOW- Primary [facility] Diagnosis Muscle spasm of back Other symptoms referable to back Acute bilateral thoracic back pain [facility] Diagnosis Encounter for long-term (current) use of medications- Primary Encounter for long-term (current) use of other medications Panic disorder without agoraphobia Bipolar 2 disorder (HCC) Other bipolar disorders [facility] Diagnosis GERD without esophagitis Esophageal reflux [facility] Diagnosis Marijuana use- Primary Cannabis abuse, unspecified [facility] Diagnosis Panic disorder without agoraphobia- Primary Bipolar 2 disorder (HCC) Other bipolar disorders Marijuana use Cannabis abuse, unspecified [facility] Diagnosis NO SHOW- Primary documented in this encounter [facility] note* Diagnosis Bipolar II disorder (HCC)- Primary Other bipolar disorders documented in this encounter [facility] note* Diagnosis Bipolar 2 disorder (HCC)- Primary Other bipolar disorders Panic disorder without agoraphobia Marijuana use Cannabis abuse, unspecified [facility] Diagnosis History of marijuana use- Primary Bipolar II disorder (HCC) Other bipolar disorders Panic disorder without agoraphobia [facility] Diagnosis Encounter for long-term (current) use of medications- Primary Encounter for long-term (current) use of other medications ELIJAH (generalized anxiety disorder) Generalized anxiety disorder Panic attacks Panic disorder without agoraphobia Bipolar affective disorder, current episode mixed, current episode severity unspecified (HCC) documented in this encounter [facility] note* Diagnosis ELIJAH (generalized anxiety disorder)- Primary Generalized anxiety disorder Panic attacks Panic disorder without agoraphobia Bipolar II disorder (HCC) Other bipolar disorders Occasional use of marijuana [facility] Diagnosis Encounter for long-term (current) use of medications- Primary Encounter for long-term (current) use of other medications ELIJAH (generalized anxiety disorder) Generalized anxiety disorder Bipolar II disorder (HCC) Other bipolar disorders Panic disorder without agoraphobia [facility] Diagnosis Bipolar II disorder (HCC)- Primary Other bipolar disorders Encounter for long-term (current) use of medications Encounter for long-term (current) use of other medications Panic disorder without agoraphobia History of marijuana use ELIJAH (generalized anxiety disorder) Generalized anxiety disorder [facility] Diagnosis GERD without esophagitis Esophageal reflux documented in this encounter [facility] note* Diagnosis Encounter for screening mammogram for breast cancer [facility] Diagnosis APPOINTMENT CANCELLED- Primary documented in this encounter [facility] note* Diagnosis NO SHOW- Primary documented in this encounter [facility] note* Diagnosis Acute pain of left knee [facility] Diagnosis ELIJAH (generalized anxiety disorder)- Primary Generalized anxiety disorder Marijuana use Cannabis abuse, unspecified Panic attacks Panic disorder without agoraphobia documented [facility] Diagnosis ELIJAH (generalized anxiety disorder)- Primary Generalized anxiety disorder Panic attacks Panic disorder without agoraphobia Insomnia due to other mental disorder Bipolar II disorder (HCC) Other bipolar disorders Encounter for long-term (current) use of medications Encounter for long-term (current) use of other medications History of marijuana use Psychosocial stressors Other psychological or physical stress, not elsewhere classified [facility] Diagnosis Medication management- Primary Encounter for long-term (current) use of other medications Hypokalemia Hypopotassemia Low hemoglobin Anemia, unspecified Anemia, unspecified type Elevated hemoglobin A1c Other abnormal blood chemistry documented in this encounter [facility] note* Diagnosis Productive cough- Primary Cough Eczema, unspecified type [facility] Diagnosis Anemia, unspecified type- Primary documented in this encounter [facility] note* Diagnosis 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 [facility] Diagnosis Encounter for post surgical wound check- Primary Encounter for staple removal Encounter for removal of sutures Arterial occlusion Embolism and thrombosis of unspecified artery Acute lower limb ischemia penitentiary (current) use of aspirin penitentiary current use of anticoagulant Long-term (current) use of anticoagulants documented [facility]* Diagnosis Aortic thrombus (HCC)- Primary Embolism and thrombosis of thoracic aorta [facility] Diagnosis Abnormal serum protein electrophoresis- Primary Other nonspecific findings on examination of blood Antiphospholipid antibody syndrome (HCC) Primary hypercoagulable state Superior mesenteric artery thrombosis (HCC) Acute vascular insufficiency of intestine documented [facility] Diagnosis 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 Disorder of artery or arteriole Unspecified disorders of arteries and arterioles [facility]* Diagnosis On total parenteral nutrition (TPN)- Primary Other specified conditions influencing health status [facility] Diagnosis 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 [facility] Diagnosis High output ileostomy (HCC)- Primary [...] influencing health status documented in this encounter [facility] note* Diagnosis High output ileostomy (HCC)- [...] Other postprocedural status documented in this encounter [facility] note* Diagnosis High output ileostomy (HCC)- [...] Other postprocedural status [facility] Diagnosis High output ileostomy (HCC)- Primary [...] other mental disorder [facility] Diagnosis High output ileostomy (HCC)- [...] use of anticoagulants [facility] Diagnosis High output ileostomy (HCC)- [...] of lower extremity [facility] Diagnosis High output ileostomy (HCC)- [...] of vascular catheter [facility] Diagnosis High output ileostomy (HCC)- Primary [...] for disability examination documented [facility] Diagnosis High output ileostomy (HCC)- Primary [...] hyponatremia Hypokalemia Hypopotassemia documented [facility]* Diagnosis High output ileostomy (HCC)- Primary [...] disorder of intestines documented [facility] Diagnosis High output ileostomy (HCC)- Primary [...] of lower extremity [facility] Diagnosis High output ileostomy (HCC)- Primary [...] laterality (HCC)- Primary documented in this encounter [facility] for referral (narrative)* Outpatient Procedure (Routine) - Pending Review Specialty Diagnoses / Procedures Referred By Matias vaughan Referred To [facility] Diagnoses ELIJAH (generalized anxiety disorder) Procedures ECG COMPLETE ECG ROUTINE ECG W/LEAST 12 LDS W/I&R Clayton Granados APRN.DUSTER TENDER [address] [place] [address] [facility] [address] [place] [address] Referral ID Status Reason Start Date Expiration Date Visits Requested Visits Authorized [id number] Pending Review Auto-Generat ed Referral 12/24/2021 12/24/2022 1 1 [facility] for referral (narrative)* Diagnostic Procedure Only (Routine) - Pending Review Specialty Diagnoses / Procedures Referred By Contac t Referred To Contact XR IMAGING Diagnoses Foot pain, bilateral Procedures XR FOOT GENERAL 3V AP/LAT/OBL BILATERAL RADEX FOOT COMPLETE MINIMUM 3 VIEWS Fredrick Boland DO [address] [place] [address] [facility] Referral ID Status Reason Start Date Expiration Date Visits Requested Visits Authorized [id number] Pending Review Auto-Generat ed Referral 02/02/2022 03/04/2023 1 1 * Diagnostic Procedure Only (Routine) - Pending Review Specialty Diagnoses / Procedures Referred By Contac t Referred To Contact XR IMAGING Diagnoses Bilateral hand pain Procedures XR HAND GENERAL 3V PA/LAT/OBL BILATERAL RADEX HAND MINIMUM 3 VIEWS Fredrick Boland DO [address] [place] [address] [facility] Referral ID Status Reason Start Date Expiration Date Visits Requested Visits Authorized [id number] Pending Review Auto-Generat ed Referral 02/02/2022 03/04/2023 1 1 [facility] for referral (narrative)* Outpatient Procedure (Routine) - Pending Review Specialty Diagnoses / Procedures Referred By Ashlynac t Referred To [facility] Diagnoses Encounter for long-term (current) use of medications Procedures ECG COMPLETE ECG ROUTINE ECG W/LEAST 12 LDS W/I&R Clayton Granados [employer] SUPERVISOR.DUSTER TENDER [address] [place] [address] [facility] [place] [address] [place] [address] Referral ID Status Reason Start Date Expiration Date Visits Requested Visits Authorized [id number] Pending Review Auto-Generat ed Referral 03/14/2023 03/13/2024 1 1 [facility] for referral (narrative)* Diagnostic Procedure Only (Routine) - Pending Review Specialty Diagnoses / Procedures Referred By Contac t Referred To Contact BR IMAG[facility] Diagnoses Encounter for screening mammogram for breast cancer Procedures MILO SCREENING SCREENING MAMMOGRAPHY BI 2-VIEW BREAST INC CAD Fredrick Boland DO [address] [place] [address] [facility] [address] [place] [address] Referral ID Status Reason Start Date Expiration Date Visits Requested Visits Authorized [id number] Pending Review Auto-Generat ed Referral 10/19/2023 11/17/2024 1 1 [facility] for referral (narrative)* Diagnostic Procedure Only (Routine) - Closed Specialty Diagnoses / Procedures Referred By Matias vaughan Referred To Contact XR IMAGING Diagnoses Acute pain of left knee Procedures XR KNEE GENERAL 4V AP BOTH/PA BOTH/LAT/MERC LT KNEE AP-WGT/LAT/MERCESET Herbert Izquierdo MD [address] [place] [address] [place] [address] Referral ID Status Reason Start Date Expiration Date V isits Requested Visits Authorized Closed Auto-Generate d Referral 03/12/2021 04/11/2022 1 1 [facility] for referral (narrative)* Outpatient Procedure (Routine) - New Request Specialty Diagnoses / Procedures Referred By Ashlynac t Referred To Contact [facility] Diagnoses Encounter for long-term (current) use of medications Procedures ECG COMPLETE ECG ROUTINE ECG W/LEAST 12 LDS W/I&R Clayton Granados, [employer] SUPERVISOR.DUSTER TENDER [address] [place] [address] [facility] [place] [address] [place] [id number] Referral ID Status Reason Start Date Expiration Date Visits Requested Visits Authorized [id number] New Request Auto-Generat ed Referral 05/18/2025 1 1 Electronically signed by Clayton Granados [employer] SUPERVISOR.DUSTER TENDER at 05/18/2024 2:31 PM EST [facility] for visit Narrative* Diagnostic Procedure Only (Routine) - Closed Specialty Diagnoses / Procedures Referred By Contac t Referred To Contact XR IMAGING Diagnoses Acute pain of left knee Procedures XR KNEE GENERAL 4V AP BOTH/PA BOTH/LAT/MERC LT KNEE AP-WGT/LAT/MERCESET Herbert Izquierdo MD [address] [place] [address] [place] [address] Referral ID Status Reason Start Date Expiration Date V isits Requested Visits Authorized [id number] Closed Auto-Generate d Referral 03/12/2021 04/11/2022 1 1 [facility] Summary Purpose Family History No Family [...] Documents on File Type Date Recorded 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 DATE CREATED AUTHOR AUTHOR'S ORGANIZ ATION 06/13/2018 [facility] DATE CREATED AUTHOR AUTHOR'S ORGANIZ ATION 05/30/2021 [facility] DATE CREATED AUTHOR AUTHOR'S ORGANIZ ATION 10/07/2022 [facility] DATE CREATED AUTHOR AUTHOR'S ORGANIZ ATION 10/07/2022 [facility] DATE CREATED AUTHOR AUTHOR'S ORGANIZ ATION 12/08/2022 [facility] DATE CREATED AUTHOR AUTHOR'S ORGANIZ ATION 09/30/2024 [facility] DATE CREATED AUTHOR AUTHOR'S ORGANIZ ATION 10/30/2024 [facility] DATE CREATED AUTHOR AUTHOR'S ORGANIZ ATION 11/04/2024 [facility] DATE CREATED AUTHOR AUTHOR'S ORGANIZ ATION 03/29/2025 [facility] DATE CREATED AUTHOR AUTHOR'S ORGANIZ ATION 04/23/2025 [facility] DATE CREATED AUTHOR AUTHOR'S ORGANIZ ATION 05/03/2025 [facility] DATE CREATED AUTHOR AUTHOR'S ORGANIZ ATION 05/08/2025 [facility] Source Comments (unrecognize d section and content) In the event this informatio n is protected by the [facility] Confidentiality of Alcohol and Drug Abuse Patient Records regulations: The Federal rules restrict any use of the information to criminally investigate or prosecute any alcohol or drug abuse patient.[facility] the event this information is protected by the Federal Confidentiality of Alcohol and Drug Abuse Patient Records regulations: The Federal rules restrict any use of the information to criminally investigate or prosecute any alcohol or drug abuse patient.[facility] the event this information is protected by the Federal Confidentiality of Alcohol and Drug Abuse Patient Records regulations: The Federal rules restrict any use of the information to criminally investigate or prosecute any alcohol or drug abuse patient.[facility] the event this information is protected by the Federal Confidentiality of Alcohol and Drug Abuse Patient Records regulations: The Federal rules restrict any use of the information to criminally investigate or prosecute any alcohol or drug abuse patient.[facility] the event this information is protected by the Federal Confidentiality of Alcohol and Drug Abuse Patient Records regulations: The Federal rules restrict any use of the information to criminally investigate or prosecute any alcohol or drug abuse patient.[facility] the event this information is protected by the Federal Confidentiality of Alcohol and Drug Abuse Patient Records regulations: The Federal rules restrict any use of the information to criminally investigate or prosecute any alcohol or drug abuse patient.[facility] the event this information is protected by the Federal Confidentiality of Alcohol and Drug Abuse Patient Records regulations: The Federal rules restrict any use of the information to criminally investigate or prosecute any alcohol or drug abuse patient.[facility] the event this information is protected by the Federal Confidentiality of Alcohol and Drug Abuse Patient Records regulations: The Federal rules restrict any use of the information to criminally investigate or prosecute any alcohol or drug abuse patient.[facility] the event this information is protected by the Federal Confidentiality of Alcohol and Drug Abuse Patient Records regulations: The Federal rules restrict any use of the information to criminally investigate or prosecute any alcohol or drug abuse patient.[facility] the event this information is protected by the Federal Confidentiality of Alcohol and Drug Abuse Patient Records regulations: The Federal rules restrict any use of the information to criminally investigate or prosecute any alcohol or drug abuse patient.[facility] the event this information is protected by the Federal Confidentiality of Alcohol and Drug Abuse Patient Records regulations: The Federal rules restrict any use of the information to criminally investigate or prosecute any alcohol or drug abuse patient.[facility] the event this information is protected by the Federal Confidentiality of Alcohol and Drug Abuse Patient Records regulations: The Federal rules restrict any use of the information to criminally investigate or prosecute any alcohol or drug abuse patient.[facility] the event this information is protected by the Federal Confidentiality of Alcohol and Drug Abuse Patient Records regulations: The Federal rules restrict any use of the information to criminally investigate or prosecute any alcohol or drug abuse patient.[facility] the event this information is protected by the Federal Confidentiality of Alcohol and Drug Abuse Patient Records regulations: The Federal rules restrict any use of the information to criminally investigate or prosecute any alcohol or drug abuse patient.[facility] the event this information is protected by the Federal Confidentiality of Alcohol and Drug Abuse Patient Records regulations: The Federal rules restrict any use of the information to criminally investigate or prosecute any alcohol or drug abuse patient.[facility] the event this information is protected by the Federal Confidentiality of Alcohol and Drug Abuse Patient Records regulations: The Federal rules restrict any use of the information to criminally investigate or prosecute any alcohol or drug abuse patient.[facility] the event this information is protected by the Federal Confidentiality of Alcohol and Drug Abuse Patient Records regulations: The Federal rules restrict any use of the information to criminally investigate or prosecute any alcohol or drug abuse patient.[facility] the event this information is protected by the Federal Confidentiality of Alcohol and Drug Abuse Patient Records regulations: The Federal rules restrict any use of the information to criminally investigate or prosecute any alcohol or drug abuse patient.[facility] the event this information is protected by the Federal Confidentiality of Alcohol and Drug Abuse Patient Records regulations: The Federal rules restrict any use of the information to criminally investigate or prosecute any alcohol or drug abuse patient.[facility] the event this information is protected by the Federal Confidentiality of Alcohol and Drug Abuse Patient Records regulations: The Federal rules restrict any use of the information to criminally investigate or prosecute any alcohol or drug abuse patient.[facility] the event this information is protected by the Federal Confidentiality of Alcohol and Drug Abuse Patient Records regulations: The Federal rules restrict any use of the information to criminally investigate or prosecute any alcohol or drug abuse patient.[facility] Center[facility] the event this information is protected by the Federal Confidentiality of Alcohol and Drug Abuse Patient Records regulations: The Federal rules restrict any use of the information to criminally investigate or prosecute any alcohol or drug abuse patient.[facility] the event this information is protected by the Federal Confidentiality of Alcohol and Drug Abuse Patient Records regulations: The Federal rules restrict any use of the information to criminally investigate or prosecute any alcohol or drug abuse patient.[facility] the event this information is protected by the Federal Confidentiality of Alcohol and Drug Abuse Patient Records regulations: The Federal rules restrict any use of the information to criminally investigate or prosecute any alcohol or drug abuse patient.[facility] the event this information is protected by the Federal Confidentiality of Alcohol and Drug Abuse Patient Records regulations: The Federal rules restrict any use of the information to criminally investigate or prosecute any alcohol or drug abuse patient.[facility] the event this information is protected by the Federal Confidentiality of Alcohol and Drug Abuse Patient Records regulations: The Federal rules restrict any use of the information to criminally investigate or prosecute any alcohol or drug abuse patient.[facility]In the event this information is protected by the Federal Confidentiality of Alcohol and Drug Abuse Patient Records regulations: The Federal rules restrict any use of the information to criminally investigate or prosecute any alcohol or drug abuse patient.[facility] the event this information is protected by the Federal Confidentiality of Alcohol and Drug Abuse Patient Records regulations: The Federal rules restrict any use of the information to criminally investigate or prosecute any alcohol or drug abuse patient.[facility] CenterIn the event this information is protected by the Federal Confidentiality of Alcohol and Drug Abuse Patient Records regulations: The Federal rules restrict any use of the information to criminally investigate or prosecute any alcohol or drug abuse patient.[facility]In the event this information is protected by the Federal Confidentiality of Alcohol and Drug Abuse Patient Records regulations: The Federal rules restrict any use of the information to criminally investigate or prosecute any alcohol or drug abuse patient.[facility] CenterIn the event this information is protected by the Federal Confidentiality of Alcohol and Drug Abuse Patient Records regulations: The Federal rules restrict any use of the information to criminally investigate or prosecute any alcohol or drug abuse patient.[facility] CenterIn the event this information is protected by the Federal Confidentiality of Alcohol and Drug Abuse Patient Records regulations: The Federal rules restrict any use of the information to criminally investigate or prosecute any alcohol or drug abuse patient.[facility] CenterIn the event this information is protected by the Federal Confidentiality of Alcohol and Drug Abuse Patient Records regulations: The Federal rules restrict any use of the information to criminally investigate or prosecute any alcohol or drug abuse patient.[facility] CenterIn the event this information is protected by the Federal Confidentiality of Alcohol and Drug Abuse Patient Records regulations: The Federal rules restrict any use of the information to criminally investigate or prosecute any alcohol or drug abuse patient.[facility]In the event this information is protected by the Federal Confidentiality of Alcohol and Drug Abuse Patient Records regulations: The Federal rules restrict any use of the information to criminally investigate or prosecute any alcohol or drug abuse patient.[facility] CenterIn the event this information is protected by the Federal Confidentiality of Alcohol and Drug Abuse Patient Records regulations: The Federal rules restrict any use of the information to criminally investigate or prosecute any alcohol or drug abuse patient.[facility] CenterIn the event this information is protected by the Federal Confidentiality of Alcohol and Drug Abuse Patient Records regulations: The Federal rules restrict any use of the information to criminally investigate or prosecute any alcohol or drug abuse patient.[facility] CenterIn the event this information is protected by the Federal Confidentiality of Alcohol and Drug Abuse Patient Records regulations: The Federal rules restrict any use of the information to criminally investigate or prosecute any alcohol or drug abuse patient.[facility] CenterIn the event this information is protected by the Federal Confidentiality of Alcohol and Drug Abuse Patient Records regulations: The Federal rules restrict any use of the information to criminally investigate or prosecute any alcohol or drug abuse patient.[facility] CenterIn the event this information is protected by the Federal Confidentiality of Alcohol and Drug Abuse Patient Records regulations: The Federal rules restrict any use of the information to criminally investigate or prosecute any alcohol or drug abuse patient.[facility] CenterIn the event this information is protected by the Federal Confidentiality of Alcohol and Drug Abuse Patient Records regulations: The Federal rules restrict any use of the information to criminally investigate or prosecute any alcohol or drug abuse patient.[facility] CenterIn the event this information is protected by the Federal Confidentiality of Alcohol and Drug Abuse Patient Records regulations: The Federal rules restrict any use of the information to criminally investigate or prosecute any alcohol or drug abuse patient.[facility] CenterIn the event this information is protected by the Federal Confidentiality of Alcohol and Drug Abuse Patient Records regulations: The Federal rules restrict any use of the information to criminally investigate or prosecute any alcohol or drug abuse patient.[facility] CenterIn the event this information is protected by the Federal Confidentiality of Alcohol and Drug Abuse Patient Records regulations: The Federal rules restrict any use of the information to criminally investigate or prosecute any alcohol or drug abuse patient.[facility] CenterIn the event this information is protected by the Federal Confidentiality of Alcohol and Drug Abuse Patient Records regulations: The Federal rules restrict any use of the information to criminally investigate or prosecute any alcohol or drug abuse patient.[facility] CenterIn the event this information is protected by the Federal Confidentiality of Alcohol and Drug Abuse Patient Records regulations: The Federal rules restrict any use of the information to criminally investigate or prosecute any alcohol or drug abuse patient.[facility] CenterIn the event this information is protected by the Federal Confidentiality of Alcohol and Drug Abuse Patient Records regulations: The Federal rules restrict any use of the information to criminally investigate or prosecute any alcohol or drug abuse patient.[facility] CenterIn the event this information is protected by the Federal Confidentiality of Alcohol and Drug Abuse Patient Records regulations: The Federal rules restrict any use of the information to criminally investigate or prosecute any alcohol or drug abuse patient.[facility] CenterIn the event this information is protected by the Federal Confidentiality of Alcohol and Drug Abuse Patient Records regulations: The Federal rules restrict any use of the information to criminally investigate or prosecute any alcohol or drug abuse patient.[facility] CenterIn the event this information is protected by the Federal Confidentiality of Alcohol and Drug Abuse Patient Records regulations: The Federal rules restrict any use of the information to criminally investigate or prosecute any alcohol or drug abuse patient.[facility] CenterIn the event this information is protected by the Federal Confidentiality of Alcohol and Drug Abuse Patient Records regulations: The Federal rules restrict any use of the information to criminally investigate or prosecute any alcohol or drug abuse patient.[facility] the event this information is protected by the Federal Confidentiality of Alcohol and Drug Abuse Patient Records regulations: The Federal rules restrict any use of the information to criminally investigate or prosecute any alcohol or drug abuse patient.[facility] CenterIn the event this information is protected by the Federal Confidentiality of Alcohol and Drug Abuse Patient Records regulations: The Federal rules restrict any use of the information to criminally investigate or prosecute any alcohol or drug abuse patient.[facility] CenterIn the event this information is protected by the Federal Confidentiality of Alcohol and Drug Abuse Patient Records regulations: The Federal rules restrict any use of the information to criminally investigate or prosecute any alcohol or drug abuse patient.[facility] the event this information is protected by the Federal Confidentiality of Alcohol and Drug Abuse Patient Records regulations: The Federal rules restrict any use of the information to criminally investigate or prosecute any alcohol or drug abuse patient.[facility] CenterIn the event this information is protected by the Federal Confidentiality of Alcohol and Drug Abuse Patient Records regulations: The Federal rules restrict any use of the information to criminally investigate or prosecute any alcohol or drug abuse patient.[facility] CenterIn the event this information is protected by the Federal Confidentiality of Alcohol and Drug Abuse Patient Records regulations: The Federal rules restrict any use of the information to criminally investigate or prosecute any alcohol or drug abuse patient.[facility] CenterIn the event this information is protected by the Federal Confidentiality of Alcohol and Drug Abuse Patient Records regulations: The Federal rules restrict any use of the information to criminally investigate or prosecute any alcohol or drug abuse patient.[facility] CenterIn the event this information is protected by the Federal Confidentiality of Alcohol and Drug Abuse Patient Records regulations: The Federal rules restrict any use of the information to criminally investigate or prosecute any alcohol or drug abuse patient.[facility] CenterIn the event this information is protected by the Federal Confidentiality of Alcohol and Drug Abuse Patient Records regulations: The Federal rules restrict any use of the information to criminally investigate or prosecute any alcohol or drug abuse patient.[facility] CenterIn the event this information is protected by the Federal Confidentiality of Alcohol and Drug Abuse Patient Records regulations: The Federal rules restrict any use of the information to criminally investigate or prosecute any alcohol or drug abuse patient.[facility] CenterIn the event this information is protected by the Federal Confidentiality of Alcohol and Drug Abuse Patient Records regulations: The Federal rules restrict any use of the information to criminally investigate or prosecute any alcohol or drug abuse patient.[facility]In the event this information is protected by the Federal Confidentiality of Alcohol and Drug Abuse Patient Records regulations: The Federal rules restrict any use of the information to criminally investigate or prosecute any alcohol or drug abuse patient.[facility] CenterIn the event this information is protected by the Federal Confidentiality of Alcohol and Drug Abuse Patient Records regulations: The Federal rules restrict any use of the information to criminally investigate or prosecute any alcohol or drug abuse patient.[facility]In the event this information is protected by the Federal Confidentiality of Alcohol and Drug Abuse Patient Records regulations: The Federal rules restrict any use of the information to criminally investigate or prosecute any alcohol or drug abuse patient.[facility]In the event this information is protected by the Federal Confidentiality of Alcohol and Drug Abuse Patient Records regulations: The Federal rules restrict any use of the information to criminally investigate or prosecute any alcohol or drug abuse patient.[facility] CenterIn the event this information is protected by the Federal Confidentiality of Alcohol and Drug Abuse Patient Records regulations: The Federal rules restrict any use of the information to criminally investigate or prosecute any alcohol or drug abuse patient.[facility]In the event this information is protected by the Federal Confidentiality of Alcohol and Drug Abuse Patient Records regulations: The Federal rules restrict any use of the information to criminally investigate or prosecute any alcohol or drug abuse patient.[facility]In the event this information is protected by the Federal Confidentiality of Alcohol and Drug Abuse Patient Records regulations: The Federal rules restrict any use of the information to criminally investigate or prosecute any alcohol or drug abuse patient.[facility]In the event this information is protected by the Federal Confidentiality of Alcohol and Drug Abuse Patient Records regulations: The Federal rules restrict any use of the information to criminally investigate or prosecute any alcohol or drug abuse patient.[facility]In the event this information is protected by the Federal Confidentiality of Alcohol and Drug Abuse Patient Records regulations: The Federal rules restrict any use of the information to criminally investigate or prosecute any alcohol or drug abuse patient.[facility]In the event this information is protected by the Federal Confidentiality of Alcohol and Drug Abuse Patient Records regulations: The Federal rules restrict any use of the information to criminally investigate or prosecute any alcohol or drug abuse patient.[facility]In the event this information is protected by the Federal Confidentiality of Alcohol and Drug Abuse Patient Records regulations: The Federal rules restrict any use of the information to criminally investigate or prosecute any alcohol or drug abuse patient.[facility]In the event this information is protected by the Federal Confidentiality of Alcohol and Drug Abuse Patient Records regulations: The Federal rules restrict any use of the information to criminally investigate or prosecute any alcohol or drug abuse patient.[facility]In the event this information is protected by the Federal Confidentiality of Alcohol and Drug Abuse Patient Records regulations: The Federal rules restrict any use of the information to criminally investigate or prosecute any alcohol or drug abuse patient.[facility]In the event this information is protected by the Federal Confidentiality of Alcohol and Drug Abuse Patient Records regulations: The Federal rules restrict any use of the information to criminally investigate or prosecute any alcohol or drug abuse patient.[facility]In the event this information is protected by the Federal Confidentiality of Alcohol and Drug Abuse Patient Records regulations: The Federal rules restrict any use of the information to criminally investigate or prosecute any alcohol or drug abuse patient.[facility]In the event this information is protected by the Federal Confidentiality of Alcohol and Drug Abuse Patient Records regulations: The Federal rules restrict any use of the information to criminally investigate or prosecute any alcohol or drug abuse patient.[facility]In the event this information is protected by the Federal Confidentiality of Alcohol and Drug Abuse Patient Records regulations: The Federal rules restrict any use of the information to criminally investigate or prosecute any alcohol or drug abuse patient.[facility]In the event this information is protected by the Federal Confidentiality of Alcohol and Drug Abuse Patient Records regulations: The Federal rules restrict any use of the information to criminally investigate or prosecute any alcohol or drug abuse patient.[facility]In the event this information is protected by the Federal Confidentiality of Alcohol and Drug Abuse Patient Records regulations: The Federal rules restrict any use of the information to criminally investigate or prosecute any alcohol or drug abuse patient.[facility]In the event this information is protected by the Federal Confidentiality of Alcohol and Drug Abuse Patient Records regulations: The Federal rules restrict any use of the information to criminally investigate or prosecute any alcohol or drug abuse patient.[facility]In the event this information is protected by the Federal Confidentiality of Alcohol and Drug Abuse Patient Records regulations: The Federal rules restrict any use of the information to criminally investigate or prosecute any alcohol or drug abuse patient.[facility]In the event this information is protected by the Federal Confidentiality of Alcohol and Drug Abuse Patient Records regulations: The Federal rules restrict any use of the information to criminally investigate or prosecute any alcohol or drug abuse patient.[facility]In the event this information is protected by the Federal Confidentiality of Alcohol and Drug Abuse Patient Records regulations: The Federal rules restrict any use of the information to criminally investigate or prosecute any alcohol or drug abuse patient.[facility]In the event this information is protected by the Federal Confidentiality of Alcohol and Drug Abuse Patient Records regulations: The Federal rules restrict any use of the information to criminally investigate or prosecute any alcohol or drug abuse patient.[facility]In the event this information is protected by the Federal Confidentiality of Alcohol and Drug Abuse Patient Records regulations: The Federal rules restrict any use of the information to criminally investigate or prosecute any alcohol or drug abuse patient.[facility]In the event this information is protected by the Federal Confidentiality of Alcohol and Drug Abuse Patient Records regulations: The Federal rules restrict any use of the information to criminally investigate or prosecute any alcohol or drug abuse patient.[facility]In the event this information is protected by the Federal Confidentiality of Alcohol and Drug Abuse Patient Records regulations: The Federal rules restrict any use of the information to criminally investigate or prosecute any alcohol or drug abuse patient.[facility]In the event this information is protected by the Federal Confidentiality of Alcohol and Drug Abuse Patient Records regulations: The Federal rules restrict any use of the information to criminally investigate or prosecute any alcohol or drug abuse patient.[facility]In the event this information is protected by the Federal Confidentiality of Alcohol and Drug Abuse Patient Records regulations: The Federal rules restrict any use of the information to criminally investigate or prosecute any alcohol or drug abuse patient.[facility]In the event this information is protected by the Federal Confidentiality of Alcohol and Drug Abuse Patient Records regulations: The Federal rules restrict any use of the information to criminally investigate or prosecute any alcohol or drug abuse patient.[facility]In the event this information is protected by the Federal Confidentiality of Alcohol and Drug Abuse Patient Records regulations: The Federal rules restrict any use of the information to criminally investigate or prosecute any alcohol or drug abuse patient.[facility]In the event this information is protected by the Federal Confidentiality of Alcohol and Drug Abuse Patient Records regulations: The Federal rules restrict any use of the information to criminally investigate or prosecute any alcohol or drug abuse patient.[facility]In the event this information is protected by the Federal Confidentiality of Alcohol and Drug Abuse Patient Records regulations: The Federal rules restrict any use of the information to criminally investigate or prosecute any alcohol or drug abuse patient.[facility]In the event this information is protected by the Federal Confidentiality of Alcohol and Drug Abuse Patient Records regulations: The Federal rules restrict any use of the information to criminally investigate or prosecute any alcohol or drug abuse patient.[facility]In the event this information is protected by the Federal Confidentiality of Alcohol and Drug Abuse Patient Records regulations: The Federal rules restrict any use of the information to criminally investigate or prosecute any alcohol or drug abuse patient.[facility]In the event this information is protected by the Federal Confidentiality of Alcohol and Drug Abuse Patient Records regulations: The Federal rules restrict any use of the information to criminally investigate or prosecute any alcohol or drug abuse patient.[facility]In the event this information is protected by the Federal Confidentiality of Alcohol and Drug Abuse Patient Records regulations: The Federal rules restrict any use of the information to criminally investigate or prosecute any alcohol or drug abuse patient.[facility]In the event this information is protected by the Federal Confidentiality of Alcohol and Drug Abuse Patient Records regulations: The Federal rules restrict any use of the information to criminally investigate or prosecute any alcohol or drug abuse patient.[facility]In the event this information is protected by the Federal Confidentiality of Alcohol and Drug Abuse Patient Records regulations: The Federal rules restrict any use of the information to criminally investigate or prosecute any alcohol or drug abuse patient.[facility] the event this information is protected by the Federal Confidentiality of Alcohol and Drug Abuse Patient Records regulations: The Federal rules restrict any use of the information to criminally investigate or prosecute any alcohol or drug abuse patient.[facility]In the event this information is protected by the Federal Confidentiality of Alcohol and Drug Abuse Patient Records regulations: The Federal rules restrict any use of the information to criminally investigate or prosecute any alcohol or drug abuse patient.[facility]In the event this information is protected by the Federal Confidentiality of Alcohol and Drug Abuse Patient Records regulations: The Federal rules restrict any use of the information to criminally investigate or prosecute any alcohol or drug abuse patient.[facility]In the event this information is protected by the Federal Confidentiality of Alcohol and Drug Abuse Patient Records regulations: The Federal rules restrict any use of the information to criminally investigate or prosecute any alcohol or drug abuse patient.[facility]In the event this information is protected by the Federal Confidentiality of Alcohol and Drug Abuse Patient Records regulations: The Federal rules restrict any use of the information to criminally investigate or prosecute any alcohol or drug abuse patient.[facility]In the event this information is protected by the Federal Confidentiality of Alcohol and Drug Abuse Patient Records regulations: The Federal rules restrict any use of the information to criminally investigate or prosecute any alcohol or drug abuse patient.[facility]In the event this information is protected by the Federal Confidentiality of Alcohol and Drug Abuse Patient Records regulations: The Federal rules restrict any use of the information to criminally investigate or prosecute any alcohol or drug abuse patient.[facility]In the event this information is protected by the Federal Confidentiality of Alcohol and Drug Abuse Patient Records regulations: The Federal rules restrict any use of the information to criminally investigate or prosecute any alcohol or drug abuse patient.[facility]In the event this information is protected by the Federal Confidentiality of Alcohol and Drug Abuse Patient Records regulations: The Federal rules restrict any use of the information to criminally investigate or prosecute any alcohol or drug abuse patient.[facility]In the event this information is protected by the Federal Confidentiality of Alcohol and Drug Abuse Patient Records regulations: The Federal rules restrict any use of the information to criminally investigate or prosecute any alcohol or drug abuse patient.[facility]In the event this information is protected by the Federal Confidentiality of Alcohol and Drug Abuse Patient Records regulations: The Federal rules restrict any use of the information to criminally investigate or prosecute any alcohol or drug abuse patient.[facility]In the event this information is protected by the Federal Confidentiality of Alcohol and Drug Abuse Patient Records regulations: The Federal rules restrict any use of the information to criminally investigate or prosecute any alcohol or drug abuse patient.[facility]In the event this information is protected by the Federal Confidentiality of Alcohol and Drug Abuse Patient Records regulations: The Federal rules restrict any use of the information to criminally investigate or prosecute any alcohol or drug abuse patient.[facility]In the event this information is protected by the Federal Confidentiality of Alcohol and Drug Abuse Patient Records regulations: The Federal rules restrict any use of the information to criminally investigate or prosecute any alcohol or drug abuse patient.[facility]In the event this information is protected by the Federal Confidentiality of Alcohol and Drug Abuse Patient Records regulations: The Federal rules restrict any use of the information to criminally investigate or prosecute any alcohol or drug abuse patient.[facility]In the event this information is protected by the Federal Confidentiality of Alcohol and Drug Abuse Patient Records regulations: The Federal rules restrict any use of the information to criminally investigate or prosecute any alcohol or drug abuse patient.[facility]In the event this information is protected by the Federal Confidentiality of Alcohol and Drug Abuse Patient Records regulations: The Federal rules restrict any use of the information to criminally investigate or prosecute any alcohol or drug abuse patient.[facility]In the event this information is protected by the Federal Confidentiality of Alcohol and Drug Abuse Patient Records regulations: The Federal rules restrict any use of the information to criminally investigate or prosecute any alcohol or drug abuse patient.[facility]In the event this information is protected by the Federal Confidentiality of Alcohol and Drug Abuse Patient Records regulations: The Federal rules restrict any use of the information to criminally investigate or prosecute any alcohol or drug abuse patient.[facility]In the event this information is protected by the Federal Confidentiality of Alcohol and Drug Abuse Patient Records regulations: The Federal rules restrict any use of the information to criminally investigate or prosecute any alcohol or drug abuse patient.[facility] CenterIn the event this information is protected by the Federal Confidentiality of Alcohol and Drug Abuse Patient Records regulations: The Federal rules restrict any use of the information to criminally investigate or prosecute any alcohol or drug abuse patient.[facility] CenterIn the event this information is protected by the Federal Confidentiality of Alcohol and Drug Abuse Patient Records regulations: The Federal rules restrict any use of the information to criminally investigate or prosecute any alcohol or drug abuse patient.[facility] CenterIn the event this information is protected by the Federal Confidentiality of Alcohol and Drug Abuse Patient Records regulations: The Federal rules restrict any use of the information to criminally investigate or prosecute any alcohol or drug abuse patient.[facility] CenterIn the event this information is protected by the Federal Confidentiality of Alcohol and Drug Abuse Patient Records regulations: The Federal rules restrict any use of the information to criminally investigate or prosecute any alcohol or drug abuse patient.[facility] CenterIn the event this information is protected by the Federal Confidentiality of Alcohol and Drug Abuse Patient Records regulations: The Federal rules restrict any use of the information to criminally investigate or prosecute any alcohol or drug abuse patient.[facility] CenterIn the event this information is protected by the Federal Confidentiality of Alcohol and Drug Abuse Patient Records regulations: The Federal rules restrict any use of the information to criminally investigate or prosecute any alcohol or drug abuse patient.[facility] CenterIn the event this information is protected by the Federal Confidentiality of Alcohol and Drug Abuse Patient Records regulations: The Federal rules restrict any use of the information to criminally investigate or prosecute any alcohol or drug abuse patient.[facility] CenterIn the event this information is protected by the Federal Confidentiality of Alcohol and Drug Abuse Patient Records regulations: The Federal rules restrict any use of the information to criminally investigate or prosecute any alcohol or drug abuse patient.[facility] CenterIn the event this information is protected by the Federal Confidentiality of Alcohol and Drug Abuse Patient Records regulations: The Federal rules restrict any use of the information to criminally investigate or prosecute any alcohol or drug abuse patient.[facility] CenterIn the event this information is protected by the Federal Confidentiality of Alcohol and Drug Abuse Patient Records regulations: The Federal rules restrict any use of the information to criminally investigate or prosecute any alcohol or drug abuse patient.[facility] CenterIn the event this information is protected by the Federal Confidentiality of Alcohol and Drug Abuse Patient Records regulations: The Federal rules restrict any use of the information to criminally investigate or prosecute any alcohol or drug abuse patient.[facility] CenterIn the event this information is protected by the Federal Confidentiality of Alcohol and Drug Abuse Patient Records regulations: The Federal rules restrict any use of the information to criminally investigate or prosecute any alcohol or drug abuse patient.[facility] CenterIn the event this information is protected by the Federal Confidentiality of Alcohol and Drug Abuse Patient Records regulations: The Federal rules restrict any use of the information to criminally investigate or prosecute any alcohol or drug abuse patient.[facility] Reason for Visit (unrecogniz ed section and content) Reason Comments Follow Up Specialty Diagnoses / Procedures Referred By Matias t Referred To Contact Diagnoses Encounter for long-term (current) use of medications Procedures OFFICE/OUTPATIENT NEW HIGH MDM 60 MINUTES Clayton Granados, [employer] SUPERVISOR.DUSTER TENDER [address] [place] [address] Phone: tel: fax: Referral ID Status Reason Start Date Expiration Date V isits Requested Visits Authorized [id number] Closed PCP Requested Referral 01/11/2025 01/11/2026 1 1 Reason Comments Follow Up Specialty Diagnoses / Procedures Referred By Contac t Referred To Contact Psychiatry / ADULT PSYCHIATRY Diagnoses med check Procedures VIDEO PSYC/PSYL EST Clayton Granados, [employer] SUPERVISOR.DUSTER TENDER [address] [place] [address] Clayton Granados, [employer] SUPERVISOR.DUSTER TENDER [address] [place] [address] Referral ID Status Reason Start Date Expiration Date V isits Requested Visits Authorized [id number] New Request 05/18/2024 08/16/2024 [address] Reason Comments Results 10/10 Reason Comments New Patient Evaluation Specialty Diagnoses / Procedures Referred By Contac t Referred To Contact Diagnoses Panic attacks Bipolar affective disorder, current episode mixed, current episode severity unspecified (HCC) Depressive disorder Procedures CONSULT TO PSYCHIATRY OFFICE/OUTPATIENT NEW HIGH MDM 60-74 MINUTES Fredrick Boland, DO [address] [place] [address] Referral ID Status Reason Start Date Expiration Date Visits Requested Visits Authorized [id number] Pending Review PCP Requested Referral 07/20/2021 07/20/2022 [...] ECT Referral 08/24/2022 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 ECT Reason Comments Patient [...] Comments IV Medication Administration Reason Comments Research [facility] JONATAN / Reason Comments Hospital F/U Reason Comments Transition Of Care RC f/u discharge LVM 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 Date Comments Research 12/25/2024 COPE-JONATAN Study/I RB: - Pharmacist Contact Reason Comments CMN Please see [...] questions, please feel call Yuri Salcedo at [phone] Reason Comments Transition Of Care Reason Comments [...] Care Teams (unrecognized sec tion and content) Logistics/Shipper Relationship Specialty Start Date End Date Fredrick Boland, DO [address] [place] [address] PCP - General Family Practice 10/29/15 Logistics/Shipper Relationship Specialty Start Date End Date Fredrick Boland, DO [address] [place] [address] PCP - General Family Practice 10/29/15 Logistics/Shipper Relationship Specialty Start Date End Date Fredrick Boland, DO [address] [place] [address] PCP - General Family Practice 10/29/15 Logistics/Shipper Relationship Specialty Start Date End Date Fredrick Boland, DO [address] [place] [address] PCP - General Family Practice 10/29/15 Logistics/Shipper Relationship Specialty Start Date End Date Fredrick Boland, DO [address] [place] [address] PCP - General Family Practice 10/29/15 Logistics/Shipper Relationship Specialty Start Date End Date Fredrick Boland, DO [address] [place] [address] PCP - General Family Practice 10/29/15 Logistics/Shipper Relationship Specialty Start Date End Date Fredrick Boland, DO [address] [place] [address] PCP - General Family Practice 10/29/15 Logistics/Shipper Relationship Specialty Start Date End Date Fredrick Boland, DO [address] [place] [address] PCP - General Family Practice 10/29/15 Logistics/Shipper Relationship Specialty Start Date End Date Fredrick Boland, DO [address] [place] [address] PCP - General Family Practice 10/29/15 Logistics/Shipper Relationship Specialty Start Date End Date Fredrick Boland, DO [address] [place] [address] PCP - General Family Practice 10/29/15 Logistics/Shipper Relationship Specialty Start Date End Date Fredrick Boland, DO [address] [place] [address] PCP - General Family Practice 10/29/15 Logistics/Shipper Relationship Specialty Start Date End Date Fredrick Boland, DO [address] [place] [address] PCP - General Family Practice 10/29/15 Logistics/Shipper Relationship Specialty Start Date End Date Fredrick Boland, DO [address] [place] [address] PCP - General Family Practice 10/29/15 Logistics/Shipper Relationship Specialty Start Date End Date Fredrick Boland, DO [address] [place] [address] PCP - General Family Practice 10/29/15 Logistics/Shipper Relationship Specialty Start Date End Date Fredrick Boland, DO [address] [place] [address] PCP - General Family Medicine 10/29/15 Logistics/Shipper Relationship Specialty Start Date End Date Fredrick Boland, DO [address] [place] [address] PCP - General Family Medicine 10/29/15 Logistics/Shipper Relationship Specialty Start Date End Date Fredrick Boland, DO [address] [place] [address] PCP - General Family Medicine 10/29/15 Logistics/Shipper Relationship Specialty Start Date End Date Fredrick Boland, DO [address] [place] [address] PCP - General Family Medicine 10/29/15 Logistics/Shipper Relationship Specialty Start Date End Date Fredrick Boland, DO [address] [place] [address] PCP - General Family Medicine 10/29/15 Logistics/Shipper Relationship Specialty Start Date End Date Fredrick Boland, DO [address] [facility] [place] [address] PCP - General Family Medicine 10/29/15 Logistics/Shipper Relationship Specialty Start Date End Date Fredrick Boland, DO [address] [facility] [place] [address] PCP - General Family Medicine 10/29/15 Logistics/Shipper Relationship Specialty Start Date End Date Fredrick Boland, DO [address] [facility] [place] [address] PCP - General Family Medicine 10/29/15 Logistics/Shipper Relationship Specialty Start Date End Date Fredrick Boland, DO [address] [facility] [place] [address] PCP - General Family Medicine 10/29/15 Logistics/Shipper Relationship Specialty Start Date End Date Fredrick Boland, DO [address] [facility] [place] [address] PCP - General Family Medicine 10/29/15 Logistics/Shipper Relationship Specialty Start Date End Date Fredrick Boland, DO [address] [facility] [place] [address] PCP - General Family Medicine 10/29/15 Ariella Cortes, RN Registered Nurse Psychiatry 08/30/22 Logistics/Shipper Relationship Specialty Start Date End Date Fredrick Boland, DO [address] [facility] [place] [address] PCP - General Family Medicine 10/29/15 Ariella Cortes, RN Registered Nurse Psychiatry 08/30/22 Logistics/Shipper Relationship Specialty Start Date End Date Fredrick Boland, DO [address] [facility] [place] [address] PCP - General Family Medicine 10/29/15 Ariella Cortes, RN Registered Nurse Psychiatry 08/30/22 Logistics/Shipper Relationship Specialty Start Date End Date Fredrick Boland, DO [address] [place] [address] PCP - General Family Medicine 10/29/15 Ariella Cortes, RN Registered Nurse Psychiatry 08/30/22 Logistics/Shipper Relationship Specialty Start Date End Date Fredrick Boland, DO [address] [facility] [place] [address] PCP - General Family Medicine 10/29/15 Ariella Cortes, RN Registered Nurse Psychiatry 08/30/22 Logistics/Shipper Relationship Specialty Start Date End Date Fredrick Boland, DO [address] [place] [address] PCP - General Family Medicine 10/29/15 Ariella Cortes, RN Registered Nurse Psychiatry 08/30/22 Logistics/Shipper Relationship Specialty Start Date End Date Fredrick Boland DO [address] [place] [address] PCP - General Family Medicine 10/29/15 Ariella Cortes, RN Registered Nurse Psychiatry 08/30/22 Logistics/Shipper Relationship Specialty Start Date End Date Fredrick Boland DO [address] [place] [address] PCP - General Family Medicine 10/29/15 Ariella Cortes, RN Registered Nurse Psychiatry 08/30/22 Logistics/Shipper Relationship Specialty Start Date End Date Fredrick Boland DO [address] [place] [address] PCP - General Family Medicine 10/29/15 Ariella Cortes, RN Registered Nurse Psychiatry 08/30/22 Logistics/Shipper Relationship Specialty Start Date End Date Fredrick Boland DO [address] [facility] [place] [address] PCP - General Family Medicine 10/29/15 Ariella Cortes, RN Registered Nurse Psychiatry 08/30/22 Logistics/Shipper Relationship Specialty Start Date End Date Fredrick Boland DO [address] [place] [address] PCP - General Family Medicine 10/29/15 Ariella Cortes RN Registered Nurse Psychiatry 08/30/22 Logistics/Shipper Relationship Specialty Start Date End Date Fredrick Boland DO [address] [place] [address] PCP - General Family Medicine 10/29/15 Ariella Cortes RN Registered Nurse Psychiatry 08/30/22 Logistics/Shipper Relationship Specialty Start Date End Date Fredrick Boland DO [address] [place] [address] PCP - General Family Medicine 10/29/15 Ariella Cortes, RN Registered Nurse Psychiatry 08/30/22 Logistics/Shipper Relationship Specialty Start Date End Date Fredrick Boland DO [address] [place] [address] PCP - General Family Medicine 10/29/15 Ariella Cortes, RN Registered Nurse Psychiatry 08/30/22 Logistics/Shipper Relationship Specialty Start Date End Date Fredrick Boland DO [address] [place] [address] PCP - General Family Medicine 10/29/15 Ariella Cortes, RN Registered Nurse Psychiatry 08/30/22 Logistics/Shipper Relationship Specialty Start Date End Date Fredrick Boland DO [address] [facility] [place] [address] PCP - General Family Medicine 10/29/15 Ariella Cortes RN Registered Nurse Psychiatry 08/30/22 Logistics/Shipper Relationship Specialty Start Date End Date Fredrick Boland DO [address] [place] [address] PCP - General Family Medicine 10/29/15 Ariella Cortes RN Registered Nurse Psychiatry 08/30/22 Logistics/Shipper Relationship Specialty Start Date End Date Fredrick Boland DO [address] [place] [address] PCP - General Family Medicine 10/29/15 Ariella Cortes RN Registered Nurse Psychiatry 08/30/22 Logistics/Shipper Relationship Specialty Start Date End Date Fredrick Boland DO [address] [place] [address] PCP - General Family Medicine 10/29/15 Ariella Cortes RN Registered Nurse Psychiatry 08/30/22 Logistics/Shipper Relationship Specialty Start Date End Date Fredrick Boland DO [address] [place] [address] PCP - General Family Medicine 10/29/15 Ariella Cortes, RN Registered Nurse Psychiatry 08/30/22 Logistics/Shipper Relationship Specialty Start Date End Date Fredrick Boland DO [address] [place] [address] PCP - General Family Medicine 10/29/15 Logistics/Shipper Relationship Specialty Start Date End Date Fredrick Boland DO [address] [place] [address] PCP - General Family Medicine 10/29/15 Ariella Cortes, RN Registered Nurse Psychiatry 08/30/22 Logistics/Shipper Relationship Specialty Start Date End Date Fredrick Boland DO [address] [place] [address] PCP - General Family Medicine 10/29/15 Ariella Cortes, RN Registered Nurse Psychiatry 08/30/22 Yesenia Rangel, [employer] SUPERVISOR.DUSTER TENDER [address] [place] [address] Low Pressure Boiler Operator [facility] 06/03/24 Xochilt Gaston, [employer] SUPERVISOR.DUSTER TENDER [address] [place] [address] Low Pressure Boiler Operator [facility] 06/03/24 Logistics/Shipper Relationship Specialty Start Date End Date Fredrick Boland DO [address] [place] [address] PCP - General Family Medicine 10/29/15 Ariella Cortes, RN Registered Nurse Psychiatry 08/30/22 Yesenia Rangel, [employer] SUPERVISOR.DUSTER TENDER [address] [place] [address] Low Pressure Boiler Operator [facility] 06/03/24 Xochilt Gaston, [employer] SUPERVISOR.DUSTER TENDER [address] [place] [address] Low Pressure Boiler Operator [facility] 06/03/24 Logistics/Shipper Relationship Specialty Start Date End Date Fredrick Boland DO [address] [place] [address] PCP - General Family Medicine 10/29/15 Ariella Cortes, RN Registered Nurse Psychiatry 08/30/22 08/07/24 Yesenia Rangel, [employer] AND EM[employer]ERS SUPERVISOR.DUSTER TENDER [address] [place] [address] Formerly [facility] 06/03/24 Xochilt Gaston, [employer]ERS AND EM[employer]IERS SUPERVISOR.DUSTER TENDER [address] [place] [address] Formerly [facility] 06/03/24 Logistics/Shipper Relationship Specialty Start Date End Date Fredrick Boland DO [address] [facility] [address] PCP - General Family Medicine 10/29/15 Yesenia Rangel, [employer] AND EM[employer]IERS SUPERVISOR.DUSTER TENDER [address] [place] [address] Formerly [facility] 06/03/24 Xochilt Gaston, [employer] EM[employer] SUPERVISOR.DUSTER TENDER [address] [place] [address] Formerly [facility] 06/03/24 Logistics/Shipper Relationship Specialty Start Date End Date Fredrick Boland DO [address] [place] [address] PCP - General Family Medicine 10/29/15 Yesenia Rangel, [employer] AND EM[employer] SUPERVISOR.DUSTER TENDER [address] [place] [address] Formerly [facility] 06/03/24 Xochilt Gaston, [employer] AND EM[employer]ERS SUPERVISOR.DUSTER TENDER [address] [place] [address] Formerly [facility] 06/03/24 Logistics/Shipper Relationship Specialty Start Date End Date Fredrick Boland DO [address] [facility] [place] [address] PCP - General Family Medicine 10/29/15 Yesenia Rangel, [employer] EM[employer] SUPERVISOR.DUSTER TENDER [address] [place] [address] Low Pressure Boiler Operator Family [facility] 06/03/24 DanishaXochilt, [employer] AND EM[employer]IERS SUPERVISOR.DUSTER TENDER [address] [facility] [place] [address] Low Pressure Boiler Operator [facility] 06/03/24 Logistics/Shipper Relationship Specialty Start Date End Date Fredrick Boland DO [address] [facility] [place] [address] PCP - General Family Medicine 10/29/15 Yesenia Rangel, [employer] SUPERVISOR.DUSTER TENDER [address] [place] [address] Low Pressure Boiler Operator [facility] 06/03/24 DanishaXochilt, [employer] EM[employer] SUPERVISOR.DUSTER TENDER [address] [place] [address] Low Pressure Boiler Operator Family [facility] 06/03/24 Logistics/Shipper Relationship Specialty Start Date End Date Fredrick Boland DO [address] [place] [address] PCP - General Family Medicine 10/29/15 Yesenia Rangel, [employer] SUPERVISOR.DUSTER TENDER [address] [facility] [place] [address] Low Pressure Boiler Operator [facility] 06/03/24 Xochilt Gaston, [employer] SUPERVISOR.DUSTER TENDER [address] [place] [address] Low Pressure Boiler Operator Family [facility] 06/03/24 Logistics/Shipper Relationship Specialty Start Date End Date Fredrick Boland DO [address] [place] [address] PCP - General Family Medicine 10/29/15 Yesenia Rangel, ESTERS AND EM[employer]IERS SUPERVISOR.DUSTER TENDER [address] [place] [address] Low Pressure Boiler Operator Family [facility] 06/03/24 Xochilt Gaston, ESTERS AND EMULS[employer]IERS SUPERVISOR.DUSTER TENDER [address] [place] [address] [facility] [place] [facility] Logistics/Shipper Relationship Specialty Start Date End Date Fredrick Boland DO [address] [place] [address] PCP - General Family Medicine 10/29/15 Yesenia Rangel, ESTERS AND EM[employer]IERS SUPERVISOR.DUSTER TENDER [address] [place] [address] Low Pressure Boiler Operator [facility] 06/03/24 DanishaXochilt, ESTERS AND EMULSIFIERS SUPERVISOR.DUSTER TENDER [address] [place] [address] Low Pressure Boiler [facility] [place] 06/03/24 Logistics/Shipper Relationship Specialty Start Date End Date Fredrick Boland DO [address] [place] [address] PCP - General Family Medicine 10/29/15 Yesenia Rangel, ESTERS [employer] EMULSIFIERS SUPERVISOR.DUSTER TENDER [address] [place] [address] Low Pressure Boiler Operator Family [facility] 06/03/24 Xochilt Gaston, ESTERS AND EMULSIFIERS SUPERVISOR.DUSTER TENDER [address] [place] [address] Low Pressure Boiler [facility] [place] 06/03/24 Logistics/Shipper Relationship Specialty Start Date End Date Fredrick Boland DO [address] [place] [address] PCP - General Family Medicine 10/29/15 Yesenia Rangel, ESTERS AND EMULSIFIERS SUPERVISOR.DUSTER TENDER [address] [place] [address] Low Pressure Boiler [facility] [place] 06/03/24 Xochilt Gaston, ESTERS AND EMULSIFIERS SUPERVISOR.DUSTER TENDER [address] [place] [address] Formerly [facility] 06/03/24 Logistics/Shipper Relationship Specialty Start Date End Date Fredrick Boland DO [address] [place] [address] PCP - General Family Medicine 10/29/15 Yesenia Rangel, ESTERS AND EMULSIFIERS SUPERVISOR.DUSTER TENDER [address] [place] [address] Low Pressure Boiler [facility]Mary [facility] 06/03/24 Xochilt Gaston, ESTERS AND EMULSIFIERS SUPERVISOR.DUSTER TENDER [address] [place] [address] Low Pressure Boiler [facility] [place] 06/03/24 Logistics/Shipper Relationship Specialty Start Date End Date Fredrick Boland DO [address] [place] [address] PCP - General Family Medicine 10/29/15 Xochilt Gaston, ESTERS AND EMULSIFIERS SUPERVISOR.DUSTER TENDER [address] [place] [address] Formerly [facility] 06/03/24 Logistics/Shipper Relationship Specialty Start Date End Date Fredrick Boland, [address] [place] [address] PCP - General Family Medicine 10/29/15 Yesenia Rangel, ESTERS AND EMULSIFIERS SUPERVISOR.DUSTER TENDER [address] [place] [address] Formerly [facility] 06/03/24 09/14/24 Xochilt Gaston, ESTERS AND EMULSIFIERS SUPERVISOR.DUSTER TENDER [address] [place] [address] Formerly [facility] 06/03/24 Logistics/Shipper Relationship Specialty Start Date End Date Fredrick Boland DO [address] [place] [address] PCP - General Family Medicine 10/29/15 Yesenia Rangel, [employer]ERS [employer] EMULS[employer]IERS SUPERVISOR.DUSTER TENDER [address] [place] [address] Formerly [facility] 06/03/24 09/14/24 Xochilt Gaston, ESTERS AND EMULS[employer]IERS SUPERVISOR.DUSTER TENDER [address] [place] [address] [facility] Medicine 06/03/24 Logistics/Shipper Relationship Specialty Start Date End Date Fredrick Boland DO [address] [place] [address] PCP - General Family Medicine 10/29/15 [facility] CenterTiffanyXochilt, ESTERS AND EMULSIFIERS SUPERVISOR.DUSTER TENDER [address] [place] [address] Low Pressure Boiler [facility]Middle [facility] [place] 06/03/24 Maggie Putnam MD [address] [place] [facility] [place] [address] Internal Medicine 10/02/24 Logistics/Shipper Relationship Specialty Start Date End Date Fredrick Boland DO [address] [facility] [place] [address] PCP - General Family Medicine 10/29/15 [facility] CenterFanyah, ESTERS AND EMULSIFIERS SUPERVISOR.DUSTER TENDER [address] [facility] [address] Formerly [facility] 06/03/24 Maggie Putnam MD [address] [place] [address] Internal Medicine 10/02/24 Logistics/Shipper Relationship Specialty Start Date End Date Fredrick Boland DO [address] [facility] [place] [address] PCP - General Family Medicine 10/29/15 [facility] Xochilt, ESTERS AND EMULSIFIERS SUPERVISOR.DUSTER TENDER [address] [facility] [place] [address] Formerly [facility] 06/03/24 Maggie Putnam MD [address] [place] [facility] [place] [address] Internal Medicine 10/02/24 Logistics/Shipper Relationship Specialty Start Date End Date Fredrick Boland DO [address] [place] [address] PCP - General Family Medicine 10/29/15 Xochilt Gaston, [employer] AND EMULS[employer]ERS SUPERVISOR.DUSTER TENDER [address] [place] [address] Low Pressure Boiler Operator Family [facility] 06/03/24 Maggie Putnam MD [address] [place] [address] Internal Medicine 10/02/24 Logistics/Shipper Relationship Specialty Start Date End Date Fredrick Boland DO [address] [place] [address] PCP - General Family Medicine 10/29/15 Xochilt Gaston, [employer]ERS AND EMULSIFIERS SUPERVISOR.DUSTER TENDER [address] [address] Low Pressure Boiler Operator [facility] Medicine 06/03/24 Maggie Putnam MD [address] [place] [address] Internal Medicine 10/02/24 Logistics/Shipper Relationship Specialty Start Date End Date Fredrikc Boland DO [address] [place] [address] PCP - General Family Medicine 10/29/15 Xochilt Gaston, ESTERS [employer] EMULS[employer]IERS SUPERVISOR.DUSTER TENDER [address] [place] [address] Low Pressure Boiler Operator Family [facility] 06/03/24 Maggie Putnam MD [address] [place] [address] Internal Medicine 10/02/24 ProviderLarry MD Low Pressure Boiler Operator 10/12/24 10/26/24 Logistics/Shipper Relationship Specialty Start Date End Date Fredrick Boland DO [address] [place] [address] PCP - General Family Medicine 10/29/15 Xochilt Gaston ESTERS AND EMULSIFIERS SUPERVISOR.DUSTER TENDER [address] [place] [address] Low Pressure Boiler Operator Family Medicine 06/03/24 Maggie Putnam MD [address] [place] [address] Internal Medicine 10/02/24 Logistics/Shipper Relationship Specialty Start Date End Date Fredrick Boland DO [address] [place] [address] PCP - General Family Medicine 11/28/24 Xochilt Gaston, [employer] SUPERVISOR.DUSTER TENDER [address] [place] [address] Low Pressure Boiler Operator Family Medicine 06/03/24 Maggie Putnam MD [address] [place] [address] Internal Medicine 10/02/24 Lee Lou MD [address] [place] [address] Night Coverage Internal Medicine 11/28/24 11/28/24 Logistics/Shipper Relationship Specialty Start Date End Date Xochilt Gaston [employer]IERS SUPERVISOR.DUSTER TENDER [address] [place], [place] 231171 Low Pressure Boiler Operator Family [facility] 06/03/24 Maggie Putnam MD [address] [place] [address] Internal Medicine 10/02/24 Logistics/Shipper Relationship Specialty Start Date End Date Fredrick Boland DO [address] [place] [address] PCP - General Family Medicine 11/28/24 Xochilt Gaston, [employer] SUPERVISOR.DUSTER TENDER [address] [place] [address] Formerly [facility] 06/03/24 Maggie Putnam MD [address] [place] [address] Internal Medicine 10/02/24 Chelle Saxena, [employer]ERS AND EMULS[employer]IERS SUPERVISOR.DUSTER TENDER [address] [place], [place] 656931 Formerly [facility] 12/10/24 Logistics/Shipper Relationship Specialty Start Date End Date Fredrick Boland DO [address] [place] [address] PCP - General Family Medicine 11/28/24 Xochilt Gaston, [employer] EM[employer]IERS SUPERVISOR.DUSTER TENDER [address] [place] [address] Formerly [facility] 06/03/24 Maggie Putnam MD [address] [place] [address] Internal Medicine 10/02/24 Chelle Saxena, ESTERS AND EMULSIFIERS SUPERVISOR.DUSTER TENDER [address] [place] [address] Low Pressure Boiler Operator Family Medicine 12/10/24 Keesha June [facility] [address] [place] [address] Transitional Care Pharmacist Pharmacy 12/20/24 03/21/25 Logistics/Shipper Relationship Specialty Start Date End Date Fredrick Boland DO [address] [place] [address] PCP - General Family Medicine 11/28/24 Xochilt Gaston, [employer] EM[employer]IERS SUPERVISOR.DUSTER TENDER [address] [place] [address] Low Pressure Boiler Operator Family Medicine 06/03/24 Maggie Putnam MD [address] [place] [address] 31506 Internal Medicine 10/02/24 Chelle Saxena, [employer]ERS [employer] EM[employer]IERS SUPERVISOR.DUSTER TENDER [facility] [place] [address] Low Pressure Boiler Operator Family Medicine 12/10/24 Mounika Trent [facility] [address] [place] [address] Transitional Care Pharmacist Pharmacy 12/21/24 03/21/25 Logistics/Shipper Relationship Specialty Start Date End Date Fredrick Boland DO [address] [place] [address] PCP - General Family Medicine 11/28/24 Xochilt Gaston, [employer] EM[employer]IERS SUPERVISOR.DUSTER TENDER [address] [place] [address] Low Pressure Boiler Operator Family Medicine 06/03/24 Maggie Putnam MD [address] [place] [address] Internal Medicine 10/02/24 Chelle Saxena, [employer] SUPERVISOR.DUSTER TENDER [address] [place] [address] Low Pressure Boiler Operator Family [facility] 12/10/[address] [address] Transitional Care Pharmacist Pharmacy 12/21/24 03/21/25 Logistics/Shipper Relationship Specialty Start Date End Date Fredrick Boland DO [address] [place] [address] PCP - General Family Medicine 11/28/24 Xochilt Gaston, [employer]ERS AND EM[employer]IERS SUPERVISOR.DUSTER TENDER [address] [place] [address] Low Pressure Boiler Operator Family [facility] 06/03/24 Maggie Putnam MD [address] [place] [address] Internal Medicine 10/02/24 Chelle Saxena, [employer]ERS SUPERVISOR.DUSTER TENDER [address] [place] [address] [phone] Low Pressure Boiler Operator Family Medicine 12/10/24 [facility] [address] [place] [address] Transitional Care Pharmacist Pharmacy 12/21/24 03/21/25 Logistics/Shipper Relationship Specialty Start Date End Date Fredrick Boland DO [address] [place] [address] PCP - General Family Medicine 11/28/24 Xochilt Gaston, [employer]ERS [employer] EMULS[employer]IERS SUPERVISOR.DUSTER TENDER [address] [place] [address] [facility] 06/[facility]/24 Maggie Putnam MD [address] [place] [address] Internal Medicine 10/02/24 Chelle Saxena APRN.DUSTER TENDER [address] [place] [address] Formerly [facility] 12/10/24 [place] [phone] Transitional Care Pharmacist Pharmacy 12/21/24 03/21/25 Logistics/Shipper Relationship Specialty Start Date End Date Fredrick Boland DO [address] [place] [address] PCP - General Family Medicine 11/28/24 Xochilt Gaston, [employer]IERS SUPERVISOR.DUSTER TENDER [address] [place] [address] Formerly [facility] 06/03/24 Maggie Putnam MD [address] [place] [address] Internal Medicine 10/02/24 Chelle Saxena APRN.DUSTER TENDER [address] [place] [address] Low Pressure Boiler Operator Family Medicine 12/10/24 Twan Mounika, [facility] [address] [place] [phone] Transitional Care Pharmacist Pharmacy 12/21/24 03/21/25 Logistics/Shipper Relationship Specialty Start Date End Date Fredrick Boland DO [address] [place] [address] PCP - General Family Medicine 11/28/24 Xochilt Gaston, KAIN.DUSTER TENDER [address] [place] [address] Low Pressure Boiler Operator Family Medicine 06/03/24 Maggie Putnam MD [address] [place] [address] 8[address]18 Internal Medicine 10/02/24 Chelle Saxena, [employer]ERS [employer] EM[employer]IERS SUPERVISOR.DUSTER TENDER [address] [place] [address] Low Pressure Boiler Operator Family Medicine 12/10/24 Mounika Trent, [facility] [address] [place] [address] Transitional Care Pharmacist Pharmacy 12/21/24 03/21/25 Logistics/Shipper Relationship Specialty Start Date End Date Fredrick Boland DO [address] [place] [address] PCP - General Family Medicine 11/28/24 Xochilt Gaston, [employer]ERS [employer] EM[employer]IERS SUPERVISOR.DUSTER TENDER [facility] [place] [address] Low Pressure Boiler Operator Family Medicine 06/03/24 Maggie Putnam MD [address] [place] [address] 9[address]26 Internal Medicine 10/02/24 Chelle Saxena, ESTERS AND EM[employer]IERS SUPERVISOR.DUSTER TENDER [address] [place] [address] Low Pressure Boiler Operator Family Medicine 12/10/[address] [address] Transitional Care Pharmacist Pharmacy 12/21/24 03/21/25 Logistics/Shipper Relationship Specialty Start Date End Date Fredrick Boland DO [address] [place] [address] PCP - General Family Medicine 11/28/24 Xochilt Gaston, [employer] EM[employer]IERS SUPERVISOR.DUSTER TENDER [address] [place] [address] Low Pressure Boiler Operator Family [facility] 06/03/24 Maggie Putnam MD [address] [place] [address] Internal Medicine 10/02/24 Chelle Saxena, [employer]ERS [employer] EMULS[employer]IERS SUPERVISOR.DUSTER TENDER [address] [place] [address] 7[address] Low Pressure Boiler Operator Family Medicine 12/10/24 [facility] [address] [place] [address] Transitional Care Pharmacist Pharmacy 12/21/24 03/21/25 Logistics/Shipper Relationship Specialty Start Date End Date Fredrick Boland DO [address] [place] [address] PCP - General Family Medicine 11/28/24 Xochilt Gaston, [employer]ERS [employer] EMULS[employer]IERS SUPERVISOR.DUSTER TENDER [address] [place] [address] Low [facility] [place] 06/03/24 Maggie Putnam MD [address] [place] [address] [phone] Internal Medicine 10/02/24 Chelle Saxena APRN.DUSTER TENDER [address] [place] [address] Formerly [facility] 12/10/24 Mounika Trent, [place] [phone] Transitional Care Pharmacist Pharmacy 12/21/24 03/21/25 Logistics/Shipper Relationship Specialty Start Date End Date Fredrick Boland DO [address] [place] [address] PCP - General Family Medicine 11/28/24 Xochilt Gaston, [employer]ERS AND EM[employer]IERS SUPERVISOR.DUSTER TENDER [address] [place] [address] Formerly [facility] 06/03/24 Maggie Putnam MD [address] [place] [address] Internal Medicine 10/02/24 Chelle Saxena APRN.DUSTER TENDER [address] [place] [address] Low Pressure Boiler Operator Family Medicine 12/10/24 [facility] [address] [place] [address]11 Transitional Care Pharmacist Pharmacy 12/21/24 03/21/25 Logistics/Shipper Relationship Specialty Start Date End Date Fredrick Boland DO [facility] [place] [address] PCP - General Family Medicine 11/28/24 Xochilt Gaston APRN.DUSTER TENDER [address] [place] [address] Low Pressure Boiler Operator Family Medicine 06/03/24 Maggie Putnam MD [address] [place] [address] 86621 Internal Medicine 10/02/24 Chelle Saxena APRN.DUSTER TENDER [address] [place] [address] 8[address]50 Low Pressure Boiler Operator Family [facility] 12/10/24 [facility] [address] [place] [address] Transitional Care Pharmacist Pharmacy 12/21/24 03/21/25 Logistics/Shipper Relationship Specialty Start Date End Date Fredrick Boland DO [facility] [place] [address] PCP - General Family Medicine 11/28/24 Xochilt Gaston, ESTERS AND EM[employer]IERS SUPERVISOR.DUSTER TENDER [facility] [place] [address] Low Pressure Boiler Operator Family [facility] 06/03/24 Maggie Putnam MD [address] [place] [address] 09856 Internal Medicine 10/02/24 Chelle Saxena, ESTERS AND EM[employer]IERS SUPERVISOR.DUSTER TENDER [address] [place] [address] 215691 Low Pressure Boiler Operator Family [facility] 12/10/24 [address] [address] Transitional Care Pharmacist Pharmacy 12/21/24 03/21/25 Logistics/Shipper Relationship Specialty Start Date End Date Fredrick Boland DO [address] [place] [address] 8[address]68 PCP - General Family Medicine 11/28/24 Xochilt Gaston, ESTERS AND EMULSIFIERS SUPERVISOR.DUSTER TENDER [address] [place] [address] Formerly [facility] 06/03/24 Maggie Putnam MD [address] [place] [address] 10349 Internal Medicine 10/02/24 Chelle Saxena, [employer]ERS AND EMULSIFIERS SUPERVISOR.DUSTER TENDER [address] [place] [address] 37936 Low Pressure Boiler Operator Family [facility] 12/10/[address] [address] Transitional Care Pharmacist Pharmacy 12/21/24 03/21/25 Stephie Montoya MD [address] [place] [phone] [facility] Provider Gastroenterology 01/22/25 Stephie Montoya MD [address] [place] [phone] Home Parenteral Nutrition Provider Gastroenterology 01/22/25 Logistics/Shipper Relationship Specialty Start Date End Date Fredrick Boland DO [address] [place], [place] 629501 PCP - General Family Medicine 11/28/24 Xochilt Gaston APRN.DUSTER TENDER [address] [place], [place] 798231 Low Pressure Boiler Operator Family Medicine 06/03/24 Maggie Putnam MD [address] [place], [place] 189024 Internal Medicine 10/02/24 Chelle Saxena APRN.DUSTER TENDER [address] [place] [address] Low Pressure Boiler Operator Family Medicine 12/10/24 Mounika Trent, [facility] [address] [place] [phone] Transitional Care Pharmacist Pharmacy 12/21/24 03/21/25 Stephie Montoya MD [address] [place] [address] [facility] Provider Gastroenterology 01/22/25 Stephie Montoya MD [address] [place] [address] Home Parenteral Nutrition Provider Gastroenterology 01/22/25 Logistics/Shipper Relationship Specialty Start Date End Date Fredrick Boland DO [address] [place] [address] PCP - General Family Medicine 11/28/24 Xochilt Gaston APRN.DUSTER TENDER [address] [place] [address] Low Pressure Boiler Operator Family [facility] 06/03/24 Maggie Putnam MD [address] [place] [address] Internal Medicine 10/02/24 Chelle Saxena APRN.DUSTER TENDER [address] [place] [address] 7[address]12 Low Pressure Boiler Operator [facility] 12/10/24 [facility] [address] [place] [phone] Transitional Care Pharmacist Pharmacy 12/21/24 03/21/25 Stephie Montoya MD [address] [place] [phone] [facility] Provider Gastroenterology 01/22/25 Stephie Montoya MD [address] [place] [address] Home Parenteral Nutrition Provider Gastroenterology 01/22/25 Logistics/Shipper Relationship Specialty Start Date End Date Fredrick Boland DO [address] [place], [place] 447521 PCP - General Family Medicine 11/28/24 Xochilt Gaston, [employer]ERS [employer] EM[employer]IERS SUPERVISOR.DUSTER TENDER [address] [place], [place] 405371 Low Pressure Boiler Operator Family [facility] 06/03/24 Maggie Putnam MD [address] [place] [address] Internal Medicine 10/02/24 Chelle Saxena, ESTERS AND EMULSIFIERS SUPERVISOR.DUSTER TENDER [address] [place], [place] 159871 Formerly [facility] 12/10/24 [facility] [address] [place] [address] Transitional Care Pharmacist Pharmacy 12/21/24 03/21/25 Stephie Montoya MD [address] [place], [place] [phone] [facility] Provider Gastroenterology 01/22/25 Stephie Montoya MD [address] [place] [address] Home Parenteral Nutrition Provider Gastroenterology 01/22/25 Logistics/Shipper Relationship Specialty Start Date End Date Fredrick Boland DO [address] [place] [address] PCP - General Family Medicine 11/28/24 Xochilt Gaston, [employer]ERS [employer] EMULSIFIERS SUPERVISOR.DUSTER TENDER [address] [place] [address] Low Pressure Boiler [facility] [place] 06/03/24 Maggie Putnam MD [address] [place] [address] 55299 Internal Medicine 10/02/24 Chelle Saxena, ESTERS AND EMULSIFIERS SUPERVISOR.DUSTER TENDER [facility] [place], [place] 880731 Low Pressure Boiler Operator Family [facility] 12/10/24 [facility] [address] [place], [place] [phone] Transitional Care Pharmacist Pharmacy 12/21/24 03/21/25 Stephie Montoya MD [address] [place], [place] [phone] [facility] Provider Gastroenterology 01/22/25 [place] [address] [place] [address] [phone] Home Parenteral Nutrition Provider Gastroenterology 01/22/25 Logistics/Shipper Relationship Specialty Start Date End Date Fredrick Boland DO [address] [place] [address] 191081 PCP - General Family Medicine 11/28/24 Xochilt Gaston APRN.DUSTER TENDER [address] [place] [address] [phone] Low Pressure Boiler Operator Family Medicine 06/03/24 Maggie Putnam MD [address] [place] [address] 07704 Internal Medicine 10/02/24 Chelle Saxena, [employer]ERS [employer] EMULS[employer]IERS SUPERVISOR.DUSTER TENDER [address] [place] [address] [phone] Low Pressure Boiler Operator Family Medicine 12/10/24 Mounika Trent, [facility] [address] [place], [place] [phone] Transitional Care Pharmacist Pharmacy 12/21/24 03/21/25 Stephie Montoya MD [address] [place] [address] [facility] Provider Gastroenterology 01/22/25 Stephie Montoya MD [address] [place], [place] [phone] Home Parenteral Nutrition Provider Gastroenterology 01/22/25 Logistics/Shipper Relationship Specialty Start Date End Date Fredrick Boland DO [address] [place] [address] [id number] PCP - General Family Medicine 11/28/24 Xochilt Gaston APRN.DUSTER TENDER [address] [place] [address] [phone] Low Pressure Boiler Operator Family Medicine 06/03/24 Maggie Putnam MD [address] [place] [address] 24331 Internal Medicine 10/02/24 Chelle Saxena ESTERS AND EMULSIFIERS SUPERVISOR.DUSTER TENDER [address] [place], [place] [id number] Low Pressure Boiler Operator Family Medicine 12/10/24 Mounika Trent, [facility] [address] [place], [place] [phone] Transitional Care Pharmacist Pharmacy 12/21/24 03/21/25 Stephie Montoya MD [address] [place] [address] [facility] Provider Gastroenterology 01/22/25 Stephie Montoya MD [address] [place], [place] [phone] Home Parenteral Nutrition Provider Gastroenterology 01/22/25 Logistics/Shipper Relationship Specialty Start Date End Date Fredrick Boland DO [address] [place], [place] 348961 PCP - General Family Medicine 11/28/24 Xochilt Gaston APRN.DUSTER TENDER [address] [place], [place] 730871 Low Pressure Boiler Operator Family Medicine 06/03/24 Maggie Putnam MD [address] [place], [place] 925674 Internal Medicine 10/02/24 Chelle Saxena APRN.DUSTER TENDER [address] [place], [place] 491341 Low Pressure Boiler Operator Family Medicine 12/10/24 [facility] [address] [place] [address] Transitional Care Pharmacist Pharmacy 12/21/24 03/21/25 Stephie Montoya MD [address] [place] [address] [facility] Provider Gastroenterology 01/22/25 [place] [address] [place] [address] Home Parenteral Nutrition Provider Gastroenterology 01/22/25 Logistics/Shipper Relationship Specialty Start Date End Date Fredrick Boland DO [address] [place], [place] 590311 PCP - General Family Medicine 11/28/24 Xochilt Gaston APRN.DUSTER TENDER [address] [place] [address] 56481 Low Pressure Boiler Operator Family Medicine 06/03/24 Maggie Putnam MD [address] [place] [address] 02281 Internal Medicine 10/02/24 Chelle Saxena APRN.DUSTER TENDER [address] [place] [address] [phone] Low Pressure Boiler Operator Family [facility] 12/10/24 [facility] [address] [place] [address] Transitional Care Pharmacist Pharmacy 12/21/24 03/21/25 [place] [address] [place], [place] [phone] [facility] Provider Gastroenterology 01/22/25 Stephie Montoya MD [address] [place] [address] Home Parenteral Nutrition Provider Gastroenterology 01/22/25 Logistics/Shipper Relationship Specialty Start Date End Date Fredrick Boland DO [address] [place], [place] 728781 PCP - General Family Medicine 11/28/24 Xochilt Gaston APRN.DUSTER TENDER [address] [place], [place] 041971 Low Pressure Boiler Operator Family [facility] 06/03/24 Maggie Putnam MD [address] [place] [address] Internal Medicine 10/02/24 Chelle Saxena ESTERS AND EMULSIFIERS SUPERVISOR.DUSTER TENDER [address] [place], [place] [phone] [facility] 12/10/24 [facility] [address] [place] [address] Transitional Care Pharmacist Pharmacy 12/21/24 03/21/25 Stephie Montoya MD [address] [place] [address] [facility] Provider Gastroenterology 01/22/25 Stephie Montoya MD [address] [place] [address] Home Parenteral Nutrition Provider Gastroenterology 01/22/25 Logistics/Shipper Relationship Specialty Start Date End Date Fredrick Boland DO [address] [place], [place] 025961 PCP - General Family Medicine 11/28/24 Xochilt Gaston, [employer] SUPERVISOR.DUSTER TENDER [address] [place], [place] [id number] Low Pressure Boiler [facility] [place] 06/03/24 Maggie Putnam MD [address] [place] [address] Internal Medicine 10/02/24 Chelle Saxena APRN.DUSTER TENDER [address] [place], [place] 007261 Low Pressure Boiler Operator Family Medicine 12/10/24 [facility] [address] [place] [address] Transitional Care Pharmacist Pharmacy 12/21/24 03/21/25 Stephie Montoya MD [address] [place], [place] [phone] [facility] Provider Gastroenterology 01/22/25 Stephie Montoya MD [address] [place], [place] [phone] Home Parenteral Nutrition Provider Gastroenterology 01/22/25 Chance Florentino, RN Registered Nurse General Surgery 02/20/25 Lamar Dey, NATHANAEL Registered Nurse Backup General Surgery 02/20/25 Alyson Devine MD [address] [place] [address] Surgeon General Surgery 02/20/25 Logistics/Shipper Relationship Specialty Start Date End Date Fredrick Boland DO [address] [place], [place] [id number] PCP - General Family Medicine 11/28/24 Xochilt Gaston APRN.DUSTER TENDER [address] [place], [place] [phone] Low Pressure Boiler Operator Family Medicine 06/03/24 Maggie Putnam MD [address] [place] [address] Internal Medicine 10/02/24 Chelle Saxena APRN.DUSTER TENDER [address] [place], [place] 928921 Low Pressure Boiler Operator Family [facility] 12/10/24 [facility] [address] [place] [address] Transitional Care Pharmacist Pharmacy 12/21/24 03/21/25 Stephie Montoya MD [address] [place], [place] [phone] [facility] Provider Gastroenterology 01/22/25 Stephie Montoya MD [address] [place], [place] [phone] Home Parenteral Nutrition Provider Gastroenterology 01/22/25 Chance Florentino, RN Registered Nurse General Surgery 02/20/25 Lamar Dey, NATHANAEL Registered Nurse Backup General Surgery 02/20/25 Alyson Devine MD [address] [place] [address] Surgeon General Surgery 02/20/25 Logistics/Shipper Relationship Specialty Start Date End Date Fredrick Boland DO [address] [place], [place] [id number] PCP - General Family Medicine 11/28/24 Xochilt Gaston APRN.DUSTER TENDER [address] [place], [place] [id number] Low Pressure Boiler Operator Family [facility] 06/03/24 Maggie Putnam MD [address] [place] [address] 66082 Internal Medicine 10/02/24 Chelle Saxena APRN.DUSTER TENDER [address] [place], [place] [phone] Low Pressure Boiler Operator Family [facility] 12/10/24 [facility] [address] [place], [place] [phone] Transitional Care Pharmacist Pharmacy 12/21/24 03/21/25 Stephie Montoya MD [address] [place] [address] [facility] Provider Gastroenterology 01/22/25 Stephie Montoya MD [address] [place] [phone] Home Parenteral Nutrition Provider Gastroenterology 01/22/25 Chance Florentino, RN Registered Nurse General Surgery 02/20/25 Lamar Dey, RN Registered Nurse Backup General Surgery 02/20/25 Alyson Devine MD [address] [place] [address] Surgeon General Surgery 02/20/25 Logistics/Shipper Relationship Specialty Start Date End Date Fredrick Boland DO [address] [place], [place] 479871 PCP - General Family Medicine 11/28/24 Xochilt Gaston APRN.DUSTER TENDER [address] [place] [address] Low Pressure Boiler Operator Family [facility] 06/03/24 Maggie Putnam MD [address] [place] [address] Internal Medicine 10/02/24 Chelle Saxena, [employer] SUPERVISOR.DUSTER TENDER [address] [place], [place] [id number] Low Pressure Boiler Operator [facility] 12/10/24 [facility] [address] [place] [address] Transitional Care Pharmacist Pharmacy 12/21/24 03/21/25 Stepihe Montoya MD [address] [place], [place] [phone] [facility] Provider Gastroenterology 01/22/25 02/28/25 Stephie Montoya MD [address] [place], [place] [phone] Home Parenteral Nutrition Provider Gastroenterology 01/22/25 02/28/25 Chance Florentino, NATHANAEL Registered Nurse General Surgery 02/20/25 Lamar Dey, NATHANAEL Registered Nurse Backup General Surgery 02/20/25 Alyson Devine MD [address] [place], [place] [phone] Surgeon General Surgery 02/20/25 Logistics/Shipper Relationship Specialty Start Date End Date Fredrick Boland DO [address] [place] [address] PCP - General Family Medicine 11/28/24 Xochilt Gaston APRN.DUSTER TENDER [address] [place], [place] 525041 Low Pressure Boiler Operator Family Medicine 06/03/24 Maggie Putnam MD [address] [place] [address] Internal Medicine 10/02/24 Chelle Saxena, [employer] SUPERVISOR.DUSTER TENDER [address] [place] [address] Low Pressure Boiler Operator [facility] 12/10/[address] [address] Transitional Care Pharmacist Pharmacy 12/21/24 03/21/25 Chance Florentino, RN Registered Nurse General Surgery 02/20/25 Lamar Dey, NATHANAEL Registered Nurse Backup General Surgery 02/20/25 Alyson Devine MD [address] [place] [address] Surgeon General Surgery 02/20/25 Logistics/Shipper Relationship Specialty Start Date End Date Fredrick Boland DO [address] [place] [address] PCP - General Family Medicine 11/28/24 Xochilt Gaston, [employer] SUPERVISOR.DUSTER TENDER [address] [place], [place] [id number] Low Pressure Boiler Operator Family Medicine 06/03/24 Maggie Putnam MD [address] [place] [address] Internal Medicine 10/02/24 Chelle Saxena, [employer] SUPERVISOR.DUSTER TENDER [facility] [place], [place] [id number] Low Pressure Boiler Operator Family Medicine 12/10/24 Mounika Trent, [facility] [address] [place] [address] Transitional Care Pharmacist Pharmacy 12/21/24 03/21/25 Chance Florenitno, RN Registered Nurse General Surgery 02/20/25 Lamar Dey, NATHANAEL Registered Nurse Backup General Surgery 02/20/25 Alyson Devine MD [address] [place], [place] [phone] Surgeon General Surgery 02/20/25 Logistics/Shipper Relationship Specialty Start Date End Date Fredrick Boland DO [address] [place] [id number] PCP - General Family Medicine 11/28/24 Xochilt Gaston, [employer] SUPERVISOR.DUSTER TENDER [address] [place] [id number] Low Pressure Boiler Operator Family Medicine 06/03/24 Maggie Putnam MD [address] [place] [address] [phone] Internal Medicine 10/02/24 Chelle Saxena, [employer] SUPERVISOR.DUSTER TENDER [address] [place] [address] [phone] Low Pressure Boiler Operator Family Medicine 12/10/24 Mounika Trent, [facility] [address] [place], [place] [phone] Transitional Care Pharmacist Pharmacy 12/21/24 03/21/25 Chance Florentino, RN Registered Nurse General Surgery 02/20/25 Lamar Dey, RN Registered Nurse Backup General Surgery 02/20/25 Alyson Devine MD [facility] [place] [address] Surgeon General Surgery 02/20/25 Logistics/Shipper Relationship Specialty Start Date End Date Fredrick Boland DO [facility] [place] [address] PCP - General Family Medicine 11/28/24 Xochilt Gaston APRN.DUSTER TENDER [address] [place] [id number] Low Pressure Boiler Operator Family Medicine 06/03/24 Maggie Putnam MD [address] [place] [id number] Internal Medicine 10/02/24 Chelle Saxena APRN.DUSTER TENDER [address] [place] [id number] Low Pressure Boiler Operator Family Medicine 12/10/24 Mounika Trent [facility] [address] [place] [phone] Transitional Care Pharmacist Pharmacy 12/21/24 03/21/25 Chance Florentino, RN Registered Nurse General Surgery 02/20/25 Lamar Dey, RN Registered Nurse Backup General Surgery 02/20/25 Alyson Devine MD [address] [place] [address] Surgeon General Surgery 02/20/25 Logistics/Shipper Relationship Specialty Start Date End Date Fredrick Boland DO [address] [place] [address] PCP - General Family Medicine 11/28/24 Xochilt Gaston APRN.DUSTER TENDER [address] [place] [address] Low Pressure Boiler Operator Family [facility] 06/03/24 Maggie Putnam MD [address] [place] [address] Internal Medicine 10/02/24 Chelle Saxena APRN.DUSTER TENDER [address] [place] [address] Low Pressure Boiler Operator Family [facility] 12/10/24 [facility] [address] [place] [phone] Transitional Care Pharmacist Pharmacy 12/21/24 03/21/25 Chance Florentino, RN Registered Nurse General Surgery 02/20/25 Lamar Dey, NATHANAEL Registered Nurse Backup General Surgery 02/20/25 Alyson Devine MD [facility] [place] [phone] Surgeon General Surgery 02/20/25 FOR RECORDS PERTAINING [...] BE BASED ON THE PRIMARY CLINICAL RECORDS. [employer] [facility]. provides no warranty or guarantee of the accuracy or completeness of information in this document.
[2025-05-25 11:50] LABS: Anion Gap 17 (5-15); BUN 3 mg/dL (4-19); BUN/Creat Ratio 2.8 RATIO (10-20); Calcium,Total 5.1 mg/dL (7.6-11.0); Carbon Dioxide 24.2 mmol/L (21.0-32.0); Chloride 102 mmol/L (98-108); Estimated Creatinine Clearance 69.52 ml/min (50-250); Glucose 136 mg/dL (70-99)
[2025-05-25 11:58] LABS: Magnesium 0.6 mg/dL (1.5-2.2); Potassium 2.4 mmol/L (3.3-5.1)
--- NOTE | 2025-05-25 12:09 | PCM.HP.STD ---
HPI - General General Date of Admission: 05/25/25 HPI Narrative CHERYL ROSADO, is a 39 F who presents to the hospital because she does not feel well. She presented to the ER yesterday with hypokalemia and was discharged on potassium supplementation now she comes back with continued hypokalemia as well as hypocalcemia and hypomagnesemia. Phosphorus is pending. 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 Her ostomy has been reversed and her diarrhea has improved. 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 Abdominal bloating Flatulence Depression Former smoker Ischemic necrosis of toe Sepsis Hx of blood clots Diarrhea Anxiety Tobacco use Borderline personality disorder Obesity Bipolar disorder Home Medications ?Medication ?Instructions ?Recorded ?Last Taken ?Type escitalopram oxalate 20 mg tablet 30 mg PO DAILY depression 04/27/22 05/24/25 History omeprazole 40 mg capsule,delayed 40 mg PO DAILY gerd 06/20/23 05/24/25 History release Lactobacillus acidoph-L.bulgaricus 2 tab PO QHS supplement 05/24/25 05/24/25 History 1 million cell tablet (Floranex) apixaban 5 mg tablet (Eliquis) 5 mg PO BID heart 05/24/25 05/24/25 History dicyclomine 10 mg capsule 10 mg PO TID gas/bloating 05/24/25 05/24/25 History doxepin 10 mg capsule 10 mg PO DAILY pain 05/24/25 05/24/25 History lurasidone 40 mg tablet 40 mg PO QHS mood 05/24/25 05/24/25 History olanzapine 10 mg tablet 10 mg PO QHS anti psychotic 05/24/25 05/24/25 History potassium chloride 20 mEq 60 meq PO DAILY k+ replace 05/24/25 05/24/25 History tablet,extended release(part/cryst) Allergy/AdvReac Type Severity Reaction Status Date / Time acetaminophen (From Percocet) AdvReac Abd Verified 05/25/25 10:42 cramps/diarrhea hydrocodone (From Vicodin) AdvReac Abd Verified 05/25/25 10:42 cramps/diarrhea oxycodone (From Percocet) AdvReac Abd Verified 05/25/25 10:42 cramps/diarrhea Family History Other Heart disease Surgical History History of creation of ostomy Hx of cholecystectomy H/O section History of carpal tunnel surgery Social History Smoking Status: Former smoker substance use type: does not use ROS Constitutional Constitutional: Reports weakness; Denies chills, fatigue, fever(s) or malaise Eyes Eyes: Denies blurry vision ENT HEENT: Denies headache(s) or nasal discharge Cardiovascular Cardiovascular: Denies chest pain, dyspnea on exertion or syncope Respiratory/Chest Respiratory/Chest: Denies cough, shortness of breath at rest or shortness of breath with exertion Gastrointestinal Gastrointestinal: Denies constipation, diarrhea, nausea or vomiting Genitourinary Genitourinary: Denies dysuria Neurologic Neurologic: Denies focal weakness, numbness or tremor(s) Psychiatric Psychiatric: Denies anxiety or depression Vital Signs Vital Signs Vital Signs: 05/25/25 10:42 05/25/25 11:09 Temperature 96.2 F L Temperature Source Temporal Pulse Rate 111 H Respiratory Rate 16 Respiratory Pattern Normal Blood Pressure 117/76 Blood Pressure Mean 89 Pulse Ox 97 Oxygen Delivery Method Room Air Weight Weight: 176 lb 9.6 oz Body Mass Index (BMI) 27.6 Physical Exam Narrative General: Alert, Oriented x3, Cooperative, No apparent distress HEENT: Atraumatic, PERRLA, EOMI, Normocephalic Oral: Moist Mucosa Neck: Supple, No JVD Lungs: Diminished, Normal air movement, No rhonchi, No wheeze, No rales Cardiovascular: Regular rate, Regular Rhythm, Normal S1, Normal S2, No murmurs Abdomen: Soft, Non Tender, Non-Distended, No Hepato-splenomegaly Extremities: No edema, Capillary Refill Less than 3 Seconds Skin: Heel ulceration is in the final stages of healing on her left foot Musculoskeletal: No Tenderness to Palpation of Joints or Extremities Neurological: No focal neurological deficits, moves all extremities Psych/Mental Status: Normal affect, appropriate Results Lab / Micro Data 05/25/25 11:15 Labs: Laboratory Results - last 24 hr 05/25/25 11:15: Sodium 143, Potassium 2.4 L*, Chloride 102, Carbon Dioxide 24.2, Anion Gap 17 H, BUN 3 L, Creatinine 1.16, Estim Creat Clear Calc 69.52, Est GFR (MDRD) Non-Af 61, BUN/Creatinine Ratio 2.8 L, Glucose 136 H, Calcium 5.1 L*, Magnesium 0.6 L* Assessment & Plan Assessment/Plan (1) Hypokalemia: (2) Hypocalcemia: PLAN: Plan 1. Hypokalemia with hypocalcemia and hypomagnesemia ? Unclear as to the etiology other than poor p.o. intake ? She no longer has high ileostomy output as he is ostomy has been reversed ? Will aggressively replace her electrolytes and monitor overnight ? Discussed with her the need to be taking a multivitamin given the likely poor absorption she has in the setting of her short gut 2. 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 Continue with her Eliquis for her SMA thrombosis 3. Bipolar disorder ?Stable ? Continue with her home medications 4. GERD ? Stable ? Continue with PPI DVT: Eliquis 75 minutes was spent on direct patient care, including documentation as well as chart review and collaboration with colleagues Charges/Coding Visit Charges Inpatient E&M: 79837 Init Hosp L3
[2025-05-25 12:23] VITALS: BP 116/89; PULSE 66; RESP 16; TEMP 35.7; O2SAT 99
--- OUTSIDE RECORDS SUMMARY | 2025-05-25 12:23 | XMS RPT_ITS | CCD ---
Author Organization [facility] Care Team Providers Care Dynamometer Mechanic Name Role Phone Zakiya George Unavailable UnavailZakiya Alfaro Unavailable UnavailSANDRA Anand Unavailable Unavailable PROVIDER, UNKNOWN Unavailable Unavailable No, PCP Unavailable Unavailable Fredrick Boland DO Primary Care Provider Fredrick Boland DO Primary Care Provider Fredrick Boland DO Primary Care Provider Fredrick Boland DO Primary Care Provider Ariella Cortes RN Unavailable Unavailable ESA GUILLEN Attending Unavailable FREDRICK BOLAND Primary Care Unavailable Fredrick Boland DO Primary Care Provider Rangel SALES ENGINEER ACCOUNT MANAGER.Yesenia HARRINGTON Unavailable [facility] SALES ENGINEER ACCOUNT MANAGER.Xochilt HARRINGTON Unavailable Ariella Cortes RN Unavailable Unavailable Juan Carlos SALES ENGINEER ACCOUNT MANAGER.Yesenia HARRINGTON Unavailable Maggie Putnam MD Unavailable Provider Larry VO Unavailable Unavailable MICHAEL ELLIS Admitting UnavailHERBERT Guerra III (HIST) Referring Unavailable WILLIS FINCH Attending Unavailable YOHANA MCCARTHY III Consulting Unavailable FREDRICK BOLAND Primary Care Unavailable ROSA MARIA BULLOCK Admitting Unavailable DIANDRA MARTINEZ Attending Unavailable ALEXANDRIA BENITEZ Consulting Unavailable FREDRICK BOLAND Primary Care Unavailable FARZANEH DELATORRE Referring [...] PROVIDER, UNKNOWN Consulting Unavailable Fredrick Boland DO Primary Care Provider Lee Lou MD Unavailable [place] SALES ENGINEER ACCOUNT MANAGER.JUMBO OPERATOR, Ed Dallas Unavailable Leuschen [facility], Keesha Unavailable Crnonaomy [facility], Mounika Unavailable Stephie Montoya MD Unavailable Stephie Montoya MD Unavailable Chance Florentino RN Unavailable Unavaildarius Dey RN, Lamar Chávez Unavailable Unavailable Nilson VO, Kirit Unavailable Stephie Montoya MD Unavailable Stephie Montoya MD Unavailable Taras Sue Admitting Unavailable BolandFredrick Primary Care Unavailable Joshua Hugo Attending Unavailable Taras Sue Consulting Unavailable Joshua Hugo Consulting Unavailable Ashley Rosen Consulting Unavailable Boland, Fredrick Primary Care Unavailable Rosa Maria Cai Attending Unavailable Ashley Rosen Consulting Unavailable Ashley Rosen Admitting Unavailable Alok Arreaga Consulting Unavailable Rosa Maria Cai Consulting Unavailable Taras Sue Admitting Unavailable Donte Nunez Attending Unavailable Boland, Fredrick Primary Care Unavailable Taras Sue Consulting Unavailable Donte Nunez Consulting Unavailable Ashley Rosen Attending Unavailable Donte Espinal Consulting Unavailable Donte Espinal Attending Unavailable Donte Espinal Admitting Unavailable Boland, Fredrick Primary Care Unavailable Boland, Fredrick Primary Care Unavailable Jag Thomas Attending Unavailable Boland, [place] Primary Care Unavailable Rosa Maria Cai Referring Unavailable Ailyn Robert Attending Unavailable Ashley Rosen Attending Unavailable Taras Sue Attending Unavailable Taras Sue Consulting Unavailable Taras Sue Attending Unavailable Joshua Nazario Attending Unavailable Boland, [place] Primary Care Unavailable Ailyn Robert Referring [facility] Taras Sue Attending Unavailable Taras Sue Consulting Unavailable Vinicius Sueolas F Admitting Unavailable Boland, Fredrick Primary Care Unavailable Heraclio Palacio Attending Unavailable Yoseph Fonseca Attending Unavailable Boland, Fredrick Primary Care Unavailable Suppan, Alok Referring Unavailable Yoseph Fonseca Attending Unavailable Boland, Fredrick Primary Care Unavailable Whitley, Alok Referring Unavailable Boland, Fredrick Primary Care Unavailable JAMI ARANA Attending Unavailable Yoseph Fonseca Attending Unavailable [facility] Unavailable Doloresan, Alok Referring Unavailable Boland, Fredrick Primary Care Unavailable JAMI ARANA Referring Unavailable JAMI ARANA Attending Unavailable Donte Espinal Consulting Unavailable Donte Espinal Admitting Unavailable Boland, Fredrick Primary Care Unavailable Taras Sue Attending Unavailable Taras Sue Admitting Unavailable Joshua Hugo Attending Unavailable Boland, Fredrick Primary Care Unavailable Taras Sue Consulting Unavailable Joshua Hugo Consulting Unavailable Ashley Rosen Consulting Unavailable Taras Sue Consulting Unavailable Donte Nunez Attending Unavailable Boland, Fredrick Primary Care Unavailable Vinicius Sueolas Kieran Admitting Unavailable Ashley Rosen Consulting Unavailable Rosa Maria Cai Attending Unavailable Ashley Rosen Admitting Unavailable Doloresan, Alok Consulting Unavailable Yoseph Fonseca Attending Unavailable Boland, Fredrick Primary Care Unavailable Suppan, Alok Referring Unavailable Boland, Fredrick Primary Care Unavailable JAMI ARANA Attending Unavailable JAMI ARANA Referring Unavailable Ed Saxena Attending Unavailable Ed Saxena J Referring Unavailable Boland, Fredrick Primary Care Unavailable Boland, Fredrick Primary Care Unavailable JAMI ARANA Referring Unavailable JAMI ARANA Attending Unavailable Boland, Fredrick Primary Care Unavailable JAMI ARANA Attending Unavailable YASMEEN, JAMI Referring Unavailable Boland, Fredrick Primary Care Unavailable Heraclio Palacio Attending Unavailable BOLAND DO, FREDRICK Attending Unavailable BOLAND DO, FREDRICK Primary Care Unavailable KARTHIK MALDONADO Attending Unavailable BOLAND, FREDRICK L Primary Care Unavailable BOLAND, FREDRICK L Primary Care Unavailable ODESSA, ED DALLAS Referring Unavailable CLAYTON GRANADOS Attending Unavailable BOLAND, FREDRICK L Primary Care Unavailable ILA GRANADOSI J Referring Unavailable BOLAND, FREDRICK L Primary Care Unavailable ODESSA ED DALLAS Attending Unavailable BOLAND, FREDRICK L Primary Care Unavailable QUATROMONI, ALEJA Referring Unavailable BOLAND, FREDRICK L Primary Care Unavailable NILSON, HERVEED Attending Unavailable BOLAND, FREDRICK L Primary Care Unavailable ODESSA, ED DALLAS Attending Unavailable BOLAND, FREDRICK L Primary Care Unavailable CLAYTON GRANADOS J Referring Unavailable RAJCLAYTON FABIAN Attending Unavailable BOLAND, FREDRICK L Primary Care Unavailable QUATROMONI, ALEJA Referring Unavailable SANDRA RILEY Admitting Unavailable BOLAND, FREDRICK L Primary Care Unavailable NILSON, KIRIT Attending Unavailable BOLAND, FREDRICK L Primary Care Unavailable ANGELA BLACKWOOD Attending Unavailable SELF Referring Unavailable BOLAND, FREDRICK L Primary Care Unavailable ODESSA, ED DALLAS Referring Unavailable MARILINXOCHILT Attending Unavailable BOLAND, FREDRICK L Primary Care Unavailable MARILIN, XOCHILT Referring Unavailable BOLAND, FREDRICK L Primary Care Unavailable MARILIN, XOCHILT Referring Unavailable BOLAND, FREDRICK L Primary Care Unavailable MARILIN, XOCHILT Attending Unavailable BOLAND, FREDRICK L Primary Care Unavailable BOLAND, FREDRICK L Primary Care Unavailable ILA GRANADOSI J Attending Unavailable MARILINXOCHILT HINKLE Attending Unavailable BOLAND, FREDRICK L Primary Care Unavailable FREDRICK BOLAND Primary Care Unavailable ED SAXENA Referring Unavailable CLAYTON GRANADOS Attending Unavailable FREDRICK BOLAND Primary Care Unavailable BOLANDFREDRICK Primary Care Unavailable MARTÍN PENDLETON Attending Unavailable FREDRICK BOLAND Primary Care Unavailable ED SAXENA Referring Unavailable FREDRICK BOLAND Primary Care Unavailable FREDRICK BOLAND Primary Care Unavailable HERACLIO PALACIO Referring Unavailable MEGAN OLIVER Attending Unavailable DELILAH CHAVES Admitting Unavailable BOLANDFREDRICK Primary Care Unavailable CLAYTON GRANADOS Referring Unavailable XOCHILT GASTON Attending Unavailable FREDRICK BOLAND Primary Care Unavailable XOCHILT GASTON Referring Unavailable FREDRICK BOLAND Primary Care Unavailable Allergies Allergy Classification Reported Allergen(s) Allergy Type Date of Onset Reaction(s) Facility (20 sources) Acetaminophen / HYDROcodone; Translations: [HYDROCODONE-ACETA MINOPHEN] [facility] Acetaminophen / HYDROcodone Drug Allergy [facility] (1 source) HYDROcodone Drug Allergy [facility] (1 source) Acetaminophen Drug Allergy 02-19-2025 [facility] (1 source) HYDROcodone Drug Allergy 02-19-2025 [facility] (1 source) oxyCODONE Drug Allergy 02-19-2025 [facility] Medications Current Medications Medication Drug [...] on above: Take 1 capsule by [facility] once daily. OTC NUTRITIONAL SUPPLEMENT (13 sources) [...] Comment on above: Take 1 capsule by [facility] once daily. 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 of aspirin] 09-19-2024 Episodic Other aftercare (2 sources) Long-term current use of anticoagulant; Translations: [longterm (current) use of anticoagulants] 09-19-2024 Episodic Other aftercare (2 sources) Other manager terminal (current) drug therapy; Translations: [Other manager terminal (current) drug therapy] Onset: 5 Episodic Other aftercare (1 source) longterm (current) use of aspirin; Translations: [intermodal truck driver (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) use of 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] Onset: 5 Episodic Other aftercare (5 sources) longterm (current) use of anticoagulants; Translations: [longterm (current) use of anticoagulants] Onset: 5 Episodic Other aftercare (1 source) longterm (current) use of insulin; Translations: [intermodal truck driver (current) use of insulin] Onset: Episodic Other [...] limb ischemia 09-19-2024 Unclassified (1 source) Colonoscopy Hand Twister Onset: 5 11-08-2024 Unclassified (1 source) Long-term [...] (20 sources) Patient encounter status; Translations: [Other alf (current) drug therapy] Onset: 08-21-2024 Episodic Other aftercare (20 sources) Drug therapy finding; Translations: [longterm (current) use of anticoagulants] Onset: 08-20-2024 08-20-2024 Episodic Other aftercare (20 sources) Insulin dose changed; Translations: [intermodal truck driver (current) use of insulin] Onset: 08-30-2024 08-31-2024 [...] CNOV Office Visit (SPAGWO ) DALY EVANS ([id number]) 1985 F CHT Date Time Provider Department 05/02/25 9:00 AM KARTHIK MALDONADO During your visit today, we recorded the following information about you: Pulse Respiration Normal [facility] Ova and Parasites 8623on OP Normal [facility] Comment on above: Performed By: #### M 600.5000 ####[facility] [address] [place], [place], [phone] Prothrombin Time w/INRon INR Normal [facility] Comment on above: Result Comment: Antoine sanches via OM: Order cancelled - Patient discharged Performed By: #### L 300.3900 ####[facility] [address] [place], [address] PROTIME Normal 11.7-14.9 [facility] Comment on above: Result Comment: Antoine sanches via OM: Order cancelled - Patient discharged Performed By: #### L 300.3900 ####[facility] [address] [place], [address] Prothrombin Time w/INRon INR Normal [facility] Comment on above: Result Comment: Canc elled via OM: Order cancelled - Patient discharged Performed By: #### L 300.3900 ####[facility] [address] [place], [address] PROTIME Normal 11.7-14.9 [facility] Comment on above: Result Comment: Canc elled via OM: Order cancelled - Patient discharged Performed By: #### L 300.3900 ####[facility] [address] [place], [address] Basic Metabolic Profile (BMP )on 02-23-2025 BUN/CRE UNABLE TO CALCULATE Low 10-20 [facility] Comment on above: Performed By: #### L 500.2500 ####[facility] [address] [place], [address] Calcium [Mass/Vol] 7.1 mg/dL Low 7.6-11.0 [facility] Comment on above: Performed By: #### L 500.2500 ####[facility] [address] [place], [address] Chloride [Moles/Vol] 109 mmol/L High 98-108 [facility] Comment on above: Performed By: #### L 500.2500 ####[facility] [address] [place], [address] CO2 [Moles/Vol] 25.8 mmol/L Normal 21.0-32.0 [facility] Comment on above: Performed By: #### L 500.2500 ####[facility] [address] [place], [address] Creatinine [Mass/Vol] 0.67 mg/dL Low 0.70-1.20 [facility] Comment on above: Performed By: #### L 500.2500 ####[facility] [address] [place], [address] ECRCL 123.02 ml/min Normal 50-250 [facility] Comment on above: Performed By: #### L 500.2500 ####[facility] [address] [place], [address] GAP 7 Normal 5-15 [facility] Comment on above: Performed By: #### L 500.2500 ####[facility] [address] [place], [address] GFR/1.73 sq M.predicted among non-blacks MDRD (S/P/Bld) [Vol rate/Area] 113 mL/min/{1.73_m2} Normal >60 [facility] Comment on above: Result Comment: mL/m in/1.73m2 CKD-EPI Creatinine Equation (2020) Performed By: #### L 500.2500 ####[facility] [address] [place], [address] Glucose [Mass/Vol] 136 mg/dL High 70-99 [facility] Comment on above: Performed By: #### L 500.2500 ####[facility] [address] [place], [address] Potassium [Moles/Vol] 3.2 mmol/L Low 3.3-5.1 [facility] Comment on above: Performed By: #### L 500.2500 ####[facility] [address] [place], [address] Sodium [Moles/Vol] 142 mmol/L Normal 133-145 [facility] Comment on above: Performed By: #### L 500.2500 ####[facility] [address] [place], [address] Urea nitrogen [Mass/Vol] mg/dL Low 4-19 [facility] Comment on above: Performed By: #### L 500.2500 ####[facility] [address] [place], [address] BUN/CRE 3.5 RATIO Low 10-20 [facility] Comment on above: Performed By: #### L 100.0100, L500.2500, L501.2300, L501.5200 ####[facility] [address] [place], [address] Calcium [Mass/Vol] 7.6 mg/dL Normal 7.6-11.0 [facility] Comment on above: Performed By: #### L 100.0100, L500.2500, L501.2300, L501.5200 ####[facility] [address] [place], [address] Chloride [Moles/Vol] 108 mmol/L Normal 98-108 [facility] Comment on above: Performed By: #### L 100.0100, L500.2500, L501.2300, L501.5200 ####[facility] [address] [place], [address] CO2 [Moles/Vol] 22.5 mmol/L Normal 21.0-32.0 [facility] Comment on above: Performed By: #### L 100.0100, L500.2500, L501.2300, L501.5200 ####[facility] [address] [place], [address] Creatinine [Mass/Vol] 0.69 mg/dL Low 0.70-1.20 [facility] Comment on above: Performed By: #### L 100.0100, L500.2500, L501.2300, L501.5200 ####[facility] [address] [place], [address] ECRCL 119.04 ml/min Normal 50-250 [facility] Comment on above: Performed By: #### L 100.0100, L500.2500, L501.2300, L501.5200 ####[facility] [address] [place], [address] GAP 11 Normal 5-15 [facility] Comment on above: Performed By: #### L 100.0100, L500.2500, L501.2300, L501.5200 ####[facility] [address] [place], [address] GFR/1.73 sq M.predicted among non-blacks MDRD (S/P/Bld) [Vol rate/Area] 112 mL/min/{1.73_m2} Normal >60 [facility] Comment on above: Result Comment: mL/m in/1.73m2 CKD-EPI Creatinine Equation (2020) Performed By: #### L 100.0100, L500.2500, L501.2300, L501.5200 ####[facility] [address] [place], [address] Glucose [Mass/Vol] 112 mg/dL High 70-99 [facility] Comment on above: Performed By: #### L 100.0100, L500.2500, L501.2300, L501.5200 ####[facility] [address] [place], [address] Potassium [Moles/Vol] 2.9 mmol/L Low 3.3-5.1 [facility] Comment on above: Performed By: #### L 100.0100, L500.2500, L501.2300, L501.5200 ####[facility] [address] [place], [address] Sodium [Moles/Vol] 141 mmol/L Normal 133-145 [facility] Comment on above: Performed By: #### L 100.0100, L500.2500, L501.2300, L501.5200 ####[facility] [address] [place], [address] Urea nitrogen [Mass/Vol] 2 mg/dL Low 4-19 [facility] Comment on above: Performed By: #### L 100.0100, L500.2500, L501.2300, L501.5200 ####[facility] [address] [place], [address] CBC W/Diff, Automatedon 08-3 0-5 Absolute Lymph 1.51 X10 3/uL Normal 0.83-4.51 [facility] Comment on above: Performed By: #### L 100.0100, L500.2500, L501.2300, L501.5200 ####[facility] [address] [place], [address] Absolute Neut 3.3 X10 3/uL Normal 2.0-7.7 [facility] Comment on above: Performed By: #### L 100.0100, L500.2500, L501.2300, L501.5200 ####[facility] [address] [place], [address] Basophils/100 WBC (Bld) 0.6 % Normal 0-1 [facility] Comment on above: Performed By: #### L 100.0100, L500.2500, L501.2300, L501.5200 ####[facility] [address] [place], [address] Eosinophils/100 WBC (Bld) 2.6 % Normal 0-5 [facility] Comment on above: Performed By: #### L 100.0100, L500.2500, L501.2300, L501.5200 ####[facility] [address] [place], [address] Erythrocyte distribution width (RBC) [Ratio] 14.6 % Normal 11.6-14.6 [facility] Comment on above: Performed By: #### L 100.0100, L500.2500, L501.2300, L501.5200 ####[facility] [address] [place], [address] Hematocrit (Bld) [Volume fraction] 31.3 % Low 37-47 [facility] Comment on above: Performed By: #### L 100.0100, L500.2500, L501.2300, L501.5200 ####[facility] [address] [place], [address] Hemoglobin (Bld) [Mass/Vol] 10.2 g/dL Low 12.0-15.0 [facility] Comment on above: Performed By: #### L 100.0100, L500.2500, L501.2300, L501.5200 ####[facility] [address] [place], [address] IG% 0.200 Normal 0.0-0.9 [facility] Comment on above: Result Comment: IG% - Immature Granulocytes (promyelocytes, myelocytes andmetamyelocytes) > 1% indicates that a LEFT SHIFT is Present. Performed By: #### L 100.0100, L500.2500, L501.2300, L501.5200 ####[facility] [address] [place], [address] Lymphocytes/100 WBC (Bld) 28.3 % Normal 19-41 [facility] Comment on above: Performed By: #### L 100.0100, L500.2500, L501.2300, L501.5200 ####[facility] [address] [place], [address] MCH (RBC) [Entitic mass] 27.3 pg Normal 27.0-32.0 [facility] Comment on above: Performed By: #### L 100.0100, L500.2500, L501.2300, L501.5200 ####[facility] [address] [place], [address] MCHC (RBC) [Mass/Vol] 32.6 g/dL Normal 32-36 [facility] Comment on above: Performed By: #### L 100.0100, L500.2500, L501.2300, L501.5200 ####[facility] [address] [place], [address] MCV (RBC) [Entitic vol] 83.7 fL Normal 81-99 [facility] Comment on above: Performed By: #### L 100.0100, L500.2500, L501.2300, L501.5200 ####[facility] [address] [place], [address] Monocytes/100 WBC (Bld) 7.5 % Normal 0-10 [facility] Comment on above: Performed By: #### L 100.0100, L500.2500, L501.2300, L501.5200 ####[facility] [address] [place], [address] Neutrophils/100 WBC (Bld) 60.8 % Normal 47-70 [facility] Comment on above: Performed By: #### L 100.0100, L500.2500, L501.2300, L501.5200 ####[facility] [address] [place], [address] Nucleated RBC (Bld) [#/Vol] 0 10*3/uL Normal 0-5 [facility] Comment on above: Performed By: #### L 100.0100, L500.2500, L501.2300, L501.5200 ####[facility] [address] [place], [address] Platelet mean volume (Bld) [Entitic vol] 9.4 fL Normal 6.2-12.0 [facility] Comment on above: Performed By: #### L 100.0100, L500.2500, L501.2300, L501.5200 ####[facility] [address] [place], [address] Platelets (Bld) [#/Vol] 297 10*3/uL Normal 150-450 [facility] Comment on above: Performed By: #### L 100.0100, L500.2500, L501.2300, L501.5200 ####[facility] [address] [place], [address] RBC (Bld) [#/Vol] 3.74 10*6/uL Low 4.2-5.4 [facility] Comment on above: Performed By: #### L 100.0100, L500.2500, L501.2300, L501.5200 ####[facility] [address] [place], [address] RDW SD 44.8 fl High 35.1-43.9 [facility] Comment on above: Performed By: #### L 100.0100, L500.2500, L501.2300, L501.5200 ####[facility] [address] [place], [address] WBC (Bld) [#/Vol] 5.3 10*3/uL Normal 4.4-11.0 [facility] Comment on above: Performed By: #### L 100.0100, L500.2500, L501.2300, L501.5200 ####[facility] [address] [place], [address] Discharge Instructionon 08-3 Discharge Instruction Normal [facility] Magnesiumon 02-23-2025 Magnesium [Mass/Vol] 1.6 mg/dL Normal 1.5-2.2 [facility] Comment on above: Performed By: #### L 100.0100, L500.2500, L501.2300, L501.5200 ####[facility] [address] [place], [address] Phosphoruson 02-23-2025 Phosphate [Mass/Vol] 3.4 mg/dL Normal 2.7-4.5 [facility] Comment on above: Performed By: #### L 100.0100, L500.2500, L501.2300, L501.5200 ####[facility] [address] [place], [address] Prothrombin Time w/INRon INR Coag (PPP) [Relative time] 1.7 {INR} Normal [facility] Comment on above: Performed By: #### L 300.3900 ####[facility] [address] [place], [address] PT Coag (PPP) [Time] 20.0 s High 11.7-14.9 [facility] Comment on above: Performed By: #### L 300.3900 ####[facility] [address] [place], [address] Basic Metabolic Profile (BMP )on 02-22-2025 BUN/CRE UNABLE TO CALCULATE Low 10-20 [facility] Comment on above: Performed By: #### L 500.2500 ####[facility] [address] [place], [address] Calcium [Mass/Vol] 7.9 mg/dL Normal 7.6-11.0 [facility] Comment on above: Performed By: #### L 500.2500 ####[facility] [address] [place], [address] Chloride [Moles/Vol] 109 mmol/L High 98-108 [facility] Comment on above: Performed By: #### L 500.2500 ####[facility] [address] [place], [address] CO2 [Moles/Vol] 25.1 mmol/L Normal 21.0-32.0 [facility] Comment on above: Performed By: #### L 500.2500 ####[facility] [address] [place], [address] Creatinine [Mass/Vol] 0.77 mg/dL Normal 0.70-1.20 [facility] Comment on above: Performed By: #### L 500.2500 ####[facility] [address] [place], [address] ECRCL 106.68 ml/min Normal 50-250 [facility] Comment on above: Performed By: #### L 500.2500 ####[facility] [address] [place], [address] GAP 11 Normal 5-15 [facility] Comment on above: Performed By: #### L 500.2500 ####[facility] [address] [place], [address] GFR/1.73 sq M.predicted among non-blacks MDRD (S/P/Bld) [Vol rate/Area] 100 mL/min/{1.73_m2} Normal >60 [facility] Comment on above: Result Comment: mL/m in/1.73m2 CKD-EPI Creatinine Equation (2020) Performed By: #### L 500.2500 ####[facility] [address] [place], [address] Glucose [Mass/Vol] 143 mg/dL High 70-99 [facility] Comment on above: Performed By: #### L 500.2500 ####[facility] [address] [place], [address] Potassium [Moles/Vol] 2.9 mmol/L Low 3.3-5.1 [facility] Comment on above: Performed By: #### L 500.2500 ####[facility] [address] [place], [address] Sodium [Moles/Vol] 145 mmol/L Normal 133-145 [facility] Comment on above: Performed By: #### L 500.2500 ####[facility] [address] [place], [address] Urea nitrogen [Mass/Vol] mg/dL Low 4-19 [facility] Comment on above: Performed By: #### L 500.2500 ####[facility] [address] [place], [address] BUN/CRE UNABLE TO CALCULATE Low 10-20 [facility] Comment on above: Performed By: #### L 100.0100, L500.2500 ####[facility] [address] [place], [address] Calcium [Mass/Vol] 7.6 mg/dL Normal 7.6-11.0 [facility] Comment on above: Performed By: #### L 100.0100, L500.2500 ####[facility] [address] [place], [address] Chloride [Moles/Vol] 105 mmol/L Normal 98-108 [facility] Comment on above: Performed By: #### L 100.0100, L500.2500 ####[facility] [address] [place], [address] CO2 [Moles/Vol] 25.4 mmol/L Normal 21.0-32.0 [facility] Comment on above: Performed By: #### L 100.0100, L500.2500 ####[facility] [address] [place], [address] Creatinine [Mass/Vol] 0.73 mg/dL Normal 0.70-1.20 [facility] Comment on above: Performed By: #### L 100.0100, L500.2500 ####[facility] [address] [place], [address] ECRCL 112.52 ml/min Normal 50-250 [facility] Comment on above: Performed By: #### L 100.0100, L500.2500 ####[facility] [address] [place], [address] GAP 10 Normal 5-15 [facility] Comment on above: Performed By: #### L 100.0100, L500.2500 ####[facility] [address] [place], [address] GFR/1.73 sq M.predicted among non-blacks MDRD (S/P/Bld) [Vol rate/Area] 106 mL/min/{1.73_m2} Normal >60 [facility] Comment on above: Result Comment: mL/m in/1.73m2 CKD-EPI Creatinine Equation (2020) Performed By: #### L 100.0100, L500.2500 ####[facility] [address] [place], [address] Glucose [Mass/Vol] 121 mg/dL High 70-99 [facility] Comment on above: Performed By: #### L 100.0100, L500.2500 ####[facility] [address] [place], [address] Potassium [Moles/Vol] 2.2 mmol/L Invalid Interpretation Code 3.3-5.1 [facility] Comment on above: Result Comment: Crit ical Result(s) Called at: 0637 by: PHIL JUAREZ TO RNAREAD. ??Results read back by same. Performed By: #### L 100.0100, L500.2500 ####[facility] [address] [place], [address] Sodium [Moles/Vol] 141 mmol/L Normal 133-145 [facility] Comment on above: Performed By: #### L 100.0100, L500.2500 ####[facility] [address] [place], [address] Urea nitrogen [Mass/Vol] mg/dL Low 4-19 [facility] Comment on above: Performed By: #### L 100.0100, L500.2500 ####[facility] [address] [place], [address] CBC W/Diff, Automatedon 01-26 Absolute Lymph 1.32 X10 3/uL Normal 0.83-4.51 [facility] Comment on above: Performed By: #### L 100.0100, L500.2500 ####[facility] [address] [place], [address] Absolute Neut 3.5 X10 3/uL Normal 2.0-7.7 [facility] Comment on above: Performed By: #### L 100.0100, L500.2500 ####[facility] [address] [place], [address] Basophils/100 WBC (Bld) 0.6 % Normal 0-1 [facility] Comment on above: Performed By: #### L 100.0100, L500.2500 ####[facility] [address] [place], [address] Eosinophils/100 WBC (Bld) 3.1 % Normal 0-5 [facility] Comment on above: Performed By: #### L 100.0100, L500.2500 ####[facility] [address] [place], [address] Erythrocyte distribution width (RBC) [Ratio] 14.6 % Normal 11.6-14.6 [facility] Comment on above: Performed By: #### L 100.0100, L500.2500 ####[facility] [address] [place], [address] Hematocrit (Bld) [Volume fraction] 31.7 % Low 37-47 [facility] Comment on above: Performed By: #### L 100.0100, L500.2500 ####[facility] [address] [place], [address] Hemoglobin (Bld) [Mass/Vol] 10.5 g/dL Low 12.0-15.0 [facility] Comment on above: Performed By: #### L 100.0100, L500.2500 ####[facility] [address] [place], [address] IG% 0.200 Normal 0.0-0.9 [facility] Comment on above: Result Comment: IG% - Immature Granulocytes (promyelocytes, myelocytes andmetamyelocytes) > 1% indicates that a LEFT SHIFT is Present. Performed By: #### L 100.0100, L500.2500 ####[facility] [address] [place], [address] Lymphocytes/100 WBC (Bld) 24.4 % Normal 19-41 [facility] Comment on above: Performed By: #### L 100.0100, L500.2500 ####[facility] [address] [place], [address] MCH (RBC) [Entitic mass] 27.1 pg Normal 27.0-32.0 [facility] Comment on above: Performed By: #### L 100.0100, L500.2500 ####[facility] [address] [place], [address] MCHC (RBC) [Mass/Vol] 33.1 g/dL Normal 32-36 [facility] Comment on above: Performed By: #### L 100.0100, L500.2500 ####[facility] [address] [place], [address] MCV (RBC) [Entitic vol] 81.9 fL Normal 81-99 [facility] Comment on above: Performed By: #### L 100.0100, L500.2500 ####[facility] [address] [place], [address] Monocytes/100 WBC (Bld) 7.8 % Normal 0-10 [facility] Comment on above: Performed By: #### L 100.0100, L500.2500 ####[facility] [address] [place], [address] Neutrophils/100 WBC (Bld) 63.9 % Normal 47-70 [facility] Comment on above: Performed By: #### L 100.0100, L500.2500 ####[facility] [address] [place], [address] Nucleated RBC (Bld) [#/Vol] 0 10*3/uL Normal 0-5 [facility] Comment on above: Performed By: #### L 100.0100, L500.2500 ####[facility] [address] [place], [address] Platelet mean volume (Bld) [Entitic vol] 9.3 fL Normal 6.2-12.0 [facility] Comment on above: Performed By: #### L 100.0100, L500.2500 ####[facility] [address] [place], [address] Platelets (Bld) [#/Vol] 315 10*3/uL Normal 150-450 [facility] Comment on above: Performed By: #### L 100.0100, L500.2500 ####[facility] [address] [place], [address] RBC (Bld) [#/Vol] 3.87 10*6/uL Low 4.2-5.4 [facility] Comment on above: Performed By: #### L 100.0100, L500.2500 ####[facility] [address] [place], [address] RDW SD 43.3 fl Normal 35.1-43.9 [facility] Comment on above: Performed By: #### L 100.0100, L500.2500 ####[facility] [address] [place], [address] WBC (Bld) [#/Vol] 5.4 10*3/uL Normal 4.4-11.0 [facility] Comment on above: Performed By: #### L 100.0100, L500.2500 ####[facility] [address] [place], [address] Prothrombin Time w/INRon INR Coag (PPP) [Relative time] 1.8 {INR} Normal [facility] Comment on above: Performed By: #### L 300.3900 ####[facility] [address] [place], [address] PT Coag (PPP) [Time] 21.2 s High 11.7-14.9 [facility] Comment on above: Performed By: #### L 300.3900 ####[facility] [address] [place], [address] Basic Metabolic Profile (BMP )on 02-21-2025 Urea nitrogen [Mass/Vol] 2 mg/dL Low 4-19 [facility] Comment on above: Performed By: #### L 500.2500 ####[facility] [address] [place], [address] CBC W/Diff, Automatedon 01-26 Absolute Lymph 1.41 X10 3/uL Normal 0.83-4.51 [facility] Comment on above: Performed By: #### L 100.0100, L300.3900, L500.4050 ####[facility] [address] [place], [address] Absolute Neut 3.5 X10 3/uL Normal 2.0-7.7 [facility] Comment on above: Performed By: #### L 100.0100, L300.3900, L500.4050 ####[facility] [address] [place], [address] Basophils/100 WBC (Bld) 0.4 % Normal 0-1 [facility] Comment on above: Performed By: #### L 100.0100, L300.3900, L500.4050 ####[facility] [address] [place], [address] Eosinophils/100 WBC (Bld) 1.8 % Normal 0-5 [facility] Comment on above: Performed By: #### L 100.0100, L300.3900, L500.4050 ####[facility] [address] [place], [address] Erythrocyte distribution width (RBC) [Ratio] 14.3 % Normal 11.6-14.6 [facility] Comment on above: Performed By: #### L 100.0100, L300.3900, L500.4050 ####[facility] [address] [place], [address] Hematocrit (Bld) [Volume fraction] 32.9 % Low 37-47 [facility] Comment on above: Performed By: #### L 100.0100, L300.3900, L500.4050 ####[facility] [address] [place], [address] Hemoglobin (Bld) [Mass/Vol] 11.0 g/dL Low 12.0-15.0 [facility] Comment on above: Performed By: #### L 100.0100, L300.3900, L500.4050 ####[facility] [address] [place], [address] IG% 0.200 Normal 0.0-0.9 [facility] Comment on above: Result Comment: IG% - Immature Granulocytes (promyelocytes, myelocytes andmetamyelocytes) > 1% indicates that a LEFT SHIFT is Present. Performed By: #### L 100.0100, L300.3900, L500.4050 ####[facility] [address] [place], [address] Lymphocytes/100 WBC (Bld) 25.9 % Normal 19-41 [facility] Comment on above: Performed By: #### L 100.0100, L300.3900, L500.4050 ####[facility] [address] [place], [address] MCH (RBC) [Entitic mass] 27.4 pg Normal 27.0-32.0 [facility] Comment on above: Performed By: #### L 100.0100, L300.3900, L500.4050 ####[facility] [address] [place], [address] MCHC (RBC) [Mass/Vol] 33.4 g/dL Normal 32-36 [facility] Comment on above: Performed By: #### L 100.0100, L300.3900, L500.4050 ####[facility] [address] [place], [address] MCV (RBC) [Entitic vol] 82.0 fL Normal 81-99 [facility] Comment on above: Performed By: #### L 100.0100, L300.3900, L500.4050 ####[facility] [address] [place], [address] Monocytes/100 WBC (Bld) 7.5 % Normal 0-10 [facility] Comment on above: Performed By: #### L 100.0100, L300.3900, L500.4050 ####[facility] [address] [place], [address] Neutrophils/100 WBC (Bld) 64.2 % Normal 47-70 [facility] Comment on above: Performed By: #### L 100.0100, L300.3900, L500.4050 ####[facility] [address] [place], [address] Nucleated RBC (Bld) [#/Vol] 0 10*3/uL Normal 0-5 [facility] Comment on above: Performed By: #### L 100.0100, L300.3900, L500.4050 ####[facility] [address] [place], [address] Platelet mean volume (Bld) [Entitic vol] 9.5 fL Normal 6.2-12.0 [facility] Comment on above: Performed By: #### L 100.0100, L300.3900, L500.4050 ####[facility] [address] [place], [address] Platelets (Bld) [#/Vol] 322 10*3/uL Normal 150-450 [facility] Comment on above: Performed By: #### L 100.0100, L300.3900, L500.4050 ####[facility] [address] [place], [address] RBC (Bld) [#/Vol] 4.01 10*6/uL Low 4.2-5.4 [facility] Comment on above: Performed By: #### L 100.0100, L300.3900, L500.4050 ####[facility] [address] [place], [address] RDW SD 42.4 fl Normal 35.1-43.9 [facility] Comment on above: Performed By: #### L 100.0100, L300.3900, L500.4050 ####[facility] [address] [place], [address] WBC (Bld) [#/Vol] 5.5 10*3/uL Normal 4.4-11.0 [facility] Comment on above: Performed By: #### L 100.0100, L300.3900, L500.4050 ####[facility] [address] [place], [address] Comprehensive Metabolic Prof ilon 02-21-2025 Potassium [Moles/Vol] 2.1 mmol/L Invalid Interpretation Code 3.3-5.1 [facility] Comment on above: Result Comment: Crit ical Result(s) Called at: 05:08 02-21-25 TO YISSEL by:??SHEN CASE Results read back by same. AMENDED REPORT 02/21/25 0510 K previously reported as: 2.2 *L mmol/LCritical Result(s) Called at: 05:08 02-21-25 TO DAVID by:??SHEN CASE Results read back by same. Performed By: #### L 100.0100, L300.3900, L500.4050 ####[facility] [address] [place], [address] ENTERIC PATHOGEN PANEL STOOL on 02-21-2025 EP PANEL Normal [facility] Comment on above: Performed By: #### M 100.0605, M100.6796, M100.637 ####[facility] [address] [place], [address] Hepatitis Panel Acuteon 01-26 COMMENT Comment Normal . [facility] Comment on above: Result Comment: Not infected with HCV unless early or acute infection issuspected (which may be delayed in an immunocompromisedindividual), or other evidence exists to indicate HCVinfection.Performed at: - [facility] [id number] Director: Christian Alfaro PhD, Phone: [phone] Performed By: #### L 501.9520, L503.6550, L506.0200, L503.6030, L3000.0375 ####[facility] [address] [place], [address] HEP B CORE,IgM Negative Normal Negative [facility] Comment on above: Performed By: #### L 501.9520, L503.6550, L506.0200, L503.6030, L3000.0375 ####[facility] [address] [place], [address] HEP B SURF AG Negative Normal Negative [facility] Comment on above: Performed By: #### L 501.9520, L503.6550, L506.0200, L503.6030, L3000.0375 ####[facility] [address] [place], [address] HEP C VIRUS AB Non-Reactive Normal Non Reactive [facility] Comment on above: Performed By: #### L 501.9520, L503.6550, L506.0200, L503.6030, L3000.0375 ####[facility] [address] [place], [address] HEPATITIS A-IgM Negative Normal Negative [facility] Comment on above: Result Comment: A ne gative anti-HAV IgM result suggests no recent orcurrent HAV infection. Performed By: #### L 501.9520, L503.6550, L506.0200, L503.6030, L3000.0375 ####[facility] [address] [place], [address] Magnesiumon 02-21-2025 Magnesium [Mass/Vol] 1.8 mg/dL Normal 1.5-2.2 [facility] Comment on above: Order Comment: *ADD ON Performed By: #### L 501.2300, L501.5200 ####[facility] [address] [place], [address] Phosphoruson 02-21-2025 Phosphate [Mass/Vol] 3.7 mg/dL Normal 2.7-4.5 [facility] Comment on above: Order Comment: *ADD ON Performed By: #### L 501.2300, L501.5200 ####[facility] [address] [place], [address] Prothrombin Time w/INRon INR Coag (PPP) [Relative time] 1.6 {INR} Normal [facility] Comment on above: Performed By: #### L 100.0100, L300.3900, L500.4050 ####[facility] [address] [place], [address] PT Coag (PPP) [Time] 18.9 s High 11.7-14.9 [facility] Comment on above: Performed By: #### L 100.0100, L300.3900, L500.4050 ####[facility] [address] [place], [address] CBC W/Diff, Automatedon 08-2 Absolute Lymph 1.96 X10 3/uL Normal 0.83-4.51 [facility] Comment on above: Performed By: #### L 100.0100, L501.2300 ####[facility] [address] [place], [address] Absolute Neut 4.8 X10 3/uL Normal 2.0-7.7 [facility] Comment on above: Performed By: #### L 100.0100, L501.2300 ####[facility] [address] [place], [address] Basophils/100 WBC (Bld) 0.4 % Normal 0-1 [facility] Comment on above: Performed By: #### L 100.0100, L501.2300 ####[facility] [address] [place], [address] Eosinophils/100 WBC (Bld) 2.2 % Normal 0-5 [facility] Comment on above: Performed By: #### L 100.0100, L501.2300 ####[facility] [address] [place], [address] Erythrocyte distribution width (RBC) [Ratio] 14.3 % Normal 11.6-14.6 [facility] Comment on above: Performed By: #### L 100.0100, L501.2300 ####[facility] [address] [place], [address] Hematocrit (Bld) [Volume fraction] 35.1 % Low 37-47 [facility] Comment on above: Performed By: #### L 100.0100, L501.2300 ####[facility] [address] [place], [address] Hemoglobin (Bld) [Mass/Vol] 11.7 g/dL Low 12.0-15.0 [facility] Comment on above: Performed By: #### L 100.0100, L501.2300 ####[facility] [address] [place], [address] IG% 0.300 Normal 0.0-0.9 [facility] Comment on above: Result Comment: IG% - Immature Granulocytes (promyelocytes, myelocytes andmetamyelocytes) > 1% indicates that a LEFT SHIFT is Present. Performed By: #### L 100.0100, L501.2300 ####[facility] [address] [place], [address] Lymphocytes/100 WBC (Bld) 26.4 % Normal 19-41 [facility] Comment on above: Performed By: #### L 100.0100, L501.2300 ####[facility] [address] [place], [address] MCH (RBC) [Entitic mass] 27.1 pg Normal 27.0-32.0 [facility] Comment on above: Performed By: #### L 100.0100, L501.2300 ####[facility] [address] [place], [address] MCHC (RBC) [Mass/Vol] 33.3 g/dL Normal 32-36 [facility] Comment on above: Performed By: #### L 100.0100, L501.2300 ####[facility] [address] [place], [address] MCV (RBC) [Entitic vol] 81.3 fL Normal 81-99 [facility] Comment on above: Performed By: #### L 100.0100, L501.2300 ####[facility] [address] [place], [address] Monocytes/100 WBC (Bld) 5.9 % Normal 0-10 [facility] Comment on above: Performed By: #### L 100.0100, L501.2300 ####[facility] [address] [place], [address] Neutrophils/100 WBC (Bld) 64.8 % Normal 47-70 [facility] Comment on above: Performed By: #### L 100.0100, L501.2300 ####[facility] [address] [place], [address] Nucleated RBC (Bld) [#/Vol] 0 10*3/uL Normal 0-5 [facility] Comment on above: Performed By: #### L 100.0100, L501.2300 ####[facility] [address] [place], [address] Platelet mean volume (Bld) [Entitic vol] 9.3 fL Normal 6.2-12.0 [facility] Comment on above: Performed By: #### L 100.0100, L501.2300 ####[facility] [address] [place], [address] Platelets (Bld) [#/Vol] 340 10*3/uL Normal 150-450 [facility] Comment on above: Performed By: #### L 100.0100, L501.2300 ####[facility] [address] [place], [address] RBC (Bld) [#/Vol] 4.32 10*6/uL Normal 4.2-5.4 [facility] Comment on above: Performed By: #### L 100.0100, L501.2300 ####[facility] [address] [place], [address] RDW SD 42.0 fl Normal 35.1-43.9 [facility] Comment on above: Performed By: #### L 100.0100, L501.2300 ####[facility] [address] [place], [address] WBC (Bld) [#/Vol] 7.4 10*3/uL Normal 4.4-11.0 [facility] Comment on above: Performed By: #### L 100.0100, L501.2300 ####[facility] [address] [place], [address] CDIFF (PCR)on 02-20-2025 CDIFF Normal [facility] Comment on above: Performed By: #### M 100.0605, M100.6796, M100.637 ####[facility] [address] [place], [address] Comprehensive Metabolic Prof ilon 02-20-2025 Albumin [Mass/Vol] 3.0 g/dL Low 3.5-5.0 [facility] Comment on above: Performed By: #### L 300.3900, L501.5200, L500.4050 ####[facility] [address] [place], [address] Albumin/Globulin [Mass ratio] 1.1 {ratio} Normal 0.9-2.4 [facility] Comment on above: Performed By: #### L 300.3900, L501.5200, L500.4050 ####[facility] [address] [place], [address] ALK PHOS 154 U/L High 35-104 [facility] Comment on above: Performed By: #### L 300.3900, L501.5200, L500.4050 ####[facility] [address] [place], [address] ALT [Catalytic activity/Vol] 129 U/L High <=34 [facility] Comment on above: Performed By: #### L 300.3900, L501.5200, L500.4050 ####[facility] [address] [place], [address] AST [Catalytic activity/Vol] 288 U/L High <=31 [facility] Comment on above: Performed By: #### L 300.3900, L501.5200, L500.4050 ####[facility] [address] [place], [address] Bilirubin [Mass/Vol] 0.68 mg/dL Normal 0.00-1.30 [facility] Comment on above: Performed By: #### L 300.3900, L501.5200, L500.4050 ####[facility] [address] [place], [address] BUN/CRE 3.5 RATIO Low 10-20 [facility] Comment on above: Performed By: #### L 300.3900, L501.5200, L500.4050 ####[facility] [address] [place], [address] Calcium [Mass/Vol] 7.3 mg/dL Low 7.6-11.0 [facility] Comment on above: Performed By: #### L 300.3900, L501.5200, L500.4050 ####[facility] [address] [place], [address] Chloride [Moles/Vol] 109 mmol/L High 98-108 [facility] Comment on above: Performed By: #### L 300.3900, L501.5200, L500.4050 ####[facility] [address] [place], [address] CO2 [Moles/Vol] 20.7 mmol/L Low 21.0-32.0 [facility] Comment on above: Performed By: #### L 300.3900, L501.5200, L500.4050 ####[facility] [address] [place], [address] Creatinine [Mass/Vol] 0.84 mg/dL Normal 0.70-1.20 [facility] Comment on above: Performed By: #### L 300.3900, L501.5200, L500.4050 ####[facility] [address] [place], [address] ECRCL 99.18 ml/min Normal 50-250 [facility] Comment on above: Performed By: #### L 300.3900, L501.5200, L500.4050 ####[facility] [address] [place], [address] GAP 13 Normal 5-15 [facility] Comment on above: Performed By: #### L 300.3900, L501.5200, L500.4050 ####[facility] [address] [place], [address] GFR/1.73 sq M.predicted among non-blacks MDRD (S/P/Bld) [Vol rate/Area] 90 mL/min/{1.73_m2} Normal >60 [facility] Comment on above: Result Comment: mL/m in/1.73m2 CKD-EPI Creatinine Equation (2020) Performed By: #### L 300.3900, L501.5200, L500.4050 ####[facility] [address] [place], [address] Globulin (S) [Mass/Vol] 2.7 g/dL Normal 2.2-4.2 [facility] Comment on above: Performed By: #### L 300.3900, L501.5200, L500.4050 ####[facility] [address] [place], [address] Glucose [Mass/Vol] 100 mg/dL High 70-99 [facility] Comment on above: Performed By: #### L 300.3900, L501.5200, L500.4050 ####[facility] [address] [place], [address] Potassium [Moles/Vol] 2.1 mmol/L Invalid Interpretation Code 3.3-5.1 [facility] Comment on above: Result Comment: Crit ical Result(s) Called at: by: CLAUDIA GARZA??Resultsread back by same. Performed By: #### L 300.3900, L501.5200, L500.4050 ####[facility] [address] [place], [address] Sodium [Moles/Vol] 143 mmol/L Normal 133-145 [facility] Comment on above: Performed By: #### L 300.3900, L501.5200, L500.4050 ####[facility] [address] [place], [address] T PROT 5.7 g/dL Low 5.9-8.4 [facility] Comment on above: Performed By: #### L 300.3900, L501.5200, L500.4050 ####[facility] [address] [place], [address] Urea nitrogen [Mass/Vol] 3 mg/dL Low 4-19 [facility] Comment on above: Performed By: #### L 300.3900, L501.5200, L500.4050 ####[facility] [address] [place], [address] Folates,Serum (Folic Acid)on 02-20-2025 FOLATES,SERUM 13.60 ng/mL Normal 4.60-34.80 [facility] Comment on above: Order Comment: TY2 3 A Result Comment: Hemo lysis, Results will be affected, Requires Recollection. AMENDED REPORT 02/20/25 0009 FOLATES,SERUM previously reported as: 13.60 ng/mL Performed By: #### L 501.9520, L503.6550, L506.0200, L503.6030, L3000.0375 ####[facility] [address] [place], [address] Iron+Iron Binding Capacityon 02-20-2025 Iron [Mass/Vol] 68 ug/dL Normal 50-170 [facility] Comment on above: Performed By: #### L 501.9520, L503.6550, L506.0200, L503.6030, L3000.0375 ####[facility] [address] [place], [address] IRON SATURATION 23.0 Normal 13-59 [facility] Comment on above: Performed By: #### L 501.9520, L503.6550, L506.0200, L503.6030, L3000.0375 ####[facility] [address] [place], [address] TIBC 299 ug/dL Normal 250-450 [facility] Comment on above: Performed By: #### L 501.9520, L503.6550, L506.0200, L503.6030, L3000.0375 ####[facility] [address] [place], [address] UIBC 231 ug/dL Normal 228-428 [facility] Comment on above: Performed By: #### L 501.9520, L503.6550, L506.0200, L503.6030, L3000.0375 ####[facility] [address] [place], [address] L501.2276on 02-20-2025 Ionized Calcium 1.06 mmol/L Low 1.09-1.30 [facility] Comment on above: Performed By: #### L 501.2276 ####[facility] [address] [place], [address] Magnesiumon 02-20-2025 Magnesium [Mass/Vol] 2.0 mg/dL Normal 1.5-2.2 [facility] Comment on above: Performed By: #### L 300.3900, L501.5200, L500.4050 ####[facility] [address] [place], [address] Phosphoruson 02-20-2025 Phosphate [Mass/Vol] 3.6 mg/dL Normal 2.7-4.5 [facility] Comment on above: Performed By: #### L 100.0100, L501.2300 ####[facility] [address] [place], [address] Prothrombin Time w/INRon INR Coag (PPP) [Relative time] 1.5 {INR} Normal [facility] Comment on above: Performed By: #### L 300.3900, L501.5200, L500.4050 ####[facility] [address] [place], [address] PT Coag (PPP) [Time] 18.8 s High 11.7-14.9 [facility] Comment on above: Performed By: #### L 300.3900, L501.5200, L500.4050 ####[facility] [address] [place], [address] Stool Lactoferrin/WBCon 2 WBCST Normal [facility] Comment on above: Performed By: #### M 100.0605, M100.2596, M100.637 ####[facility] [address] [place], [address] Stool Occult Blood iFOBon STOB Negative Normal [facility] Comment on above: Performed By: #### M 100.7900 ####[facility] [address] [place], [address] Vitamin B12on 02-20-2025 Cobalamin (Vitamin B12) [Mass/Vol] 471 pg/mL Normal 180-914 [facility] Comment on above: Performed By: #### L 503.0106 ####[facility] [address] [place], [address] CBC W/Diff, Automatedon 01-26 Absolute Lymph 2.51 X10 3/uL Normal 0.83-4.51 [facility] Comment on above: Performed By: #### L 100.0100, L503.6005, L500.4050, L501.2450, L501.3620 ####[facility] [address] [place], [address] Absolute Neut 6.1 X10 3/uL Normal 2.0-7.7 [facility] Comment on above: Performed By: #### L 100.0100, L503.6005, L500.4050, L501.2450, L501.3620 ####[facility] [address] [place], [address] Basophils/100 WBC (Bld) 0.5 % Normal 0-1 [facility] Comment on above: Performed By: #### L 100.0100, L503.6005, L500.4050, L501.2450, L501.3620 ####[facility] [address] [place], [address] Eosinophils/100 WBC (Bld) 1.4 % Normal 0-5 [facility] Comment on above: Performed By: #### L 100.0100, L503.6005, L500.4050, L501.2450, L501.3620 ####[facility] [address] [place], [address] Erythrocyte distribution width (RBC) [Ratio] 14.3 % Normal 11.6-14.6 [facility] Comment on above: Performed By: #### L 100.0100, L503.6005, L500.4050, L501.2450, L501.3620 ####[facility] [address] [place], [address] Hematocrit (Bld) [Volume fraction] 38.8 % Normal 37-47 [facility] Comment on above: Performed By: #### L 100.0100, L503.6005, L500.4050, L501.2450, L501.3620 ####[facility] [address] [place], [address] Hemoglobin (Bld) [Mass/Vol] 13.0 g/dL Normal 12.0-15.0 [facility] Comment on above: Performed By: #### L 100.0100, L503.6005, L500.4050, L501.2450, L501.3620 ####[facility] [address] [place], [address] IG% 0.300 Normal 0.0-0.9 [facility] Comment on above: Result Comment: IG% - Immature Granulocytes (promyelocytes, myelocytes andmetamyelocytes) > 1% indicates that a LEFT SHIFT is Present. Performed By: #### L 100.0100, L503.6005, L500.4050, L501.2450, L501.3620 ####[facility] [address] [place], [address] Lymphocytes/100 WBC (Bld) 26.5 % Normal 19-41 [facility] Comment on above: Performed By: #### L 100.0100, L503.6005, L500.4050, L501.2450, L501.3620 ####[facility] [address] [place], [address] MCH (RBC) [Entitic mass] 27.3 pg Normal 27.0-32.0 [facility] Comment on above: Performed By: #### L 100.0100, L503.6005, L500.4050, L501.2450, L501.3620 ####[facility] [address] [place], [address] MCHC (RBC) [Mass/Vol] 33.5 g/dL Normal 32-36 [facility] Comment on above: Performed By: #### L 100.0100, L503.6005, L500.4050, L501.2450, L501.3620 ####[facility] [address] [place], [address] MCV (RBC) [Entitic vol] 81.5 fL Normal 81-99 [facility] Comment on above: Performed By: #### L 100.0100, L503.6005, L500.4050, L501.2450, L501.3620 ####[facility] [address] [place], [address] Monocytes/100 WBC (Bld) 7.3 % Normal 0-10 [facility] Comment on above: Performed By: #### L 100.0100, L503.6005, L500.4050, L501.2450, L501.3620 ####[facility] [address] [place], [address] Neutrophils/100 WBC (Bld) 64.0 % Normal 47-70 [facility] Comment on above: Performed By: #### L 100.0100, L503.6005, L500.4050, L501.2450, L501.3620 ####[facility] [address] [place], [address] Nucleated RBC (Bld) [#/Vol] 0 10*3/uL Normal 0-5 [facility] Comment on above: Performed By: #### L 100.0100, L503.6005, L500.4050, L501.2450, L501.3620 ####[facility] [address] [place], [address] Platelet mean volume (Bld) [Entitic vol] 9.1 fL Normal 6.2-12.0 [facility] Comment on above: Performed By: #### L 100.0100, L503.6005, L500.4050, L501.2450, L501.3620 ####[facility] [address] [place], [address] Platelets (Bld) [#/Vol] 365 10*3/uL Normal 150-450 [facility] Comment on above: Performed By: #### L 100.0100, L503.6005, L500.4050, L501.2450, L501.3620 ####[facility] [address] [place], [address] RBC (Bld) [#/Vol] 4.76 10*6/uL Normal 4.2-5.4 [facility] Comment on above: Performed By: #### L 100.0100, L503.6005, L500.4050, L501.2450, L501.3620 ####[facility] [address] [place], [address] RDW SD 42.4 fl Normal 35.1-43.9 [facility] Comment on above: Performed By: #### L 100.0100, L503.6005, L500.4050, L501.2450, L501.3620 ####[facility] [address] [place], [address] WBC (Bld) [#/Vol] 9.5 10*3/uL Normal 4.4-11.0 [facility] Comment on above: Performed By: #### L 100.0100, L503.6005, L500.4050, L501.2450, L501.3620 ####[facility] [address] [place], [address] CPK Total, Creatine Kinaseon 02-19-2025 CPK TOTAL 700 U/L High 24-195 [facility] Comment on above: Performed By: #### L 100.0100, L503.6005, L500.4050, L501.2450, L501.3620 ####[facility] [address] [place], [address] CTA Abd w/Runoff W/WO Contra ston 02-19-2025 CTA Abd w/Runoff W/WO Contrast Normal [facility] Comprehensive Metabolic Prof ilon 02-19-2025 Potassium [Moles/Vol] 2.1 mmol/L Invalid Interpretation Code 3.3-5.1 [facility] Comment on above: Result Comment: Crit ical Result(s) Called MMARTIN at: 1934 by:SARBJIT??Results read back by same.Critical Result(s) Called at: by:??Results read back bysame. AMENDED REPORT 02/19/251953 K previously reported as: 2.1 *L mmol/LCritical Result(s) Called MMARTIN at: 1934 by:SARBJIT??Results read back by same. Performed By: #### L 100.0100, L503.6005, L500.4050, L501.2450, L501.3620 ####[facility] [address] [place], [address] Emergency Department Summary on 02-19-2025 Emergency Department Summary Normal [facility] Ferritinon 02-19-2025 Ferritin [Mass/Vol] 47 ng/mL Normal 22-378 [facility] Comment on above: Performed By: #### L 501.9520, L503.6550, L506.0200, L503.6030, L3000.0375 ####[facility] [address] [place], [address] H AND P Exam - Hospitaliston 02-19-2025 H&P Exam - Hospitalist Normal [facility] Lactic Acidon 02-19-2025 Lactate [Moles/Vol] 1.4 mmol/L Normal 0.0-2.0 [facility] Comment on above: Performed By: #### L 503.6005 ####[facility] [address] [place], [address] Lactate [Moles/Vol] 2.3 mmol/L Invalid Interpretation Code 0.0-2.0 [facility] Comment on above: Order Comment: Y Result Comment: Crit ical Result(s) Called MMARTIN at: 1934 by:SARBJIT??Results read back by same. Performed By: #### L 100.0100, L503.6005, L500.4050, L501.2450, L501.3620 ####[facility] [facility] [address] [place], [address] Lipaseon 02-19-2025 Lipase [Catalytic activity/Vol] 12 U/L Low 13-75 [facility] Comment on above: Result Comment: Plesameer damon note:LIPASE revised reference range effective 22.New Lipase methodology. Expected to produce lower valuesthan the previous assay method.NEW Reference Range: 13 - 75 U/L Performed By: #### L 100.0100, L503.6005, L500.4050, L501.2450, L501.3620 ####[facility] [address] [place], [address] Magnesiumon 02-19-2025 Magnesium [Mass/Vol] 0.8 mg/dL Invalid Interpretation Code 1.5-2.2 [facility] Comment on above: Result Comment: Crit ical Result(s) Called ALAMMERS at: 2117 by:SARBJIT??Results read back by same. Performed By: #### L 501.5200 ####[facility] [address] [place], [address] Partial Thromboplast Timeon 02-19-2025 aPTT Coag (Bld) [Time] 30.6 s Normal 24.1-36.2 [facility] Comment on above: Performed By: #### L 300.3900, L300.4310 ####[facility] [address] [place], [address] ,Serum,hCG Quali.on 02-19-2025 HCG, SERUM QUAL Negative Normal [facility] Comment on above: Performed By: #### L 700.6800 ####[facility] [address] [place], [address] Prothrombin Time w/INRon INR Coag (PPP) [Relative time] 1.4 {INR} Normal [facility] Comment on above: Performed By: #### L 300.3900, L300.4310 ####[facility] [address] [place], [address] PT Coag (PPP) [Time] 17.9 s High 11.7-14.9 [facility] Comment on above: Performed By: #### L 300.3900, L300.4310 ####[facility] [address] [place], [address] Thyroid Stim Hormone (TSH)on 02-19-2025 TSH 2.560 uIU/mL Normal 0.300-4.200 [facility] Comment on above: Performed By: #### L 501.9520, L503.6550, L506.0200, L503.6030, L3000.0375 ####[facility] [address] [place], [address] Urinalysis, Completeon 02-19 EPI,SQUAMOUS 0-5 SEEN Normal 5-10 [facility] Comment on above: Order Comment: CLEAN CATCH Performed By: #### L 400.0001 ####[facility] [address] [place], [address] WBC 0-5 SEEN Normal 0-5 [facility] Comment on above: Order Comment: CLEAN CATCH Performed By: #### L 400.0001 ####[facility] [address] [place], [address] BACTERIA 0 SEEN Normal None Seen [facility] Comment on above: Order Comment: CLEAN CATCH Performed By: #### L 400.0001 ####[facility] [address] [place], [address] Mucus Ql (Urine sed) 0 SEEN Normal [facility] Comment on above: Order Comment: CLEAN CATCH Performed By: #### L 400.0001 ####[facility] [address] [place], [address] RBC 0 SEEN Normal 0-5 [facility] Comment on above: Order Comment: CLEAN CATCH Performed By: #### L 400.0001 ####[facility] [address] [place], [address] BACTERIA Normal None Seen [facility] Comment on above: Order Comment: COLLE CTOR TO SPECIFY Result Comment: DUPL ICATE ORDER Performed By: #### L 400.0001 ####[facility] [address] [place], [address] BILIRUBIN URINE Normal Negative [facility] Comment on above: Order Comment: COLLE CTOR TO SPECIFY Result Comment: DUPL ICATE ORDER Performed By: #### L 400.0001 ####[facility] [address] [place], [address] Clarity (U) Normal Clear [facility] Comment on above: Order Comment: COLLE CTOR TO SPECIFY Result Comment: DUPL ICATE ORDER Performed By: #### L 400.0001 ####[facility] [address] [place], [address] Color (U) Normal Yellow [facility] Comment on above: Order Comment: COLLE CTOR TO SPECIFY Result Comment: DUPL ICATE ORDER Performed By: #### L 400.0001 ####[facility] [address] [place], [address] EPI,SQUAMOUS Normal 5-10 [facility] Comment on above: Order Comment: COLLE CTOR TO SPECIFY Result Comment: DUPL ICATE ORDER Performed By: #### L 400.0001 ####[facility] [address] [place], [address] GLUCOSE, UR Normal Normal [facility] Comment on above: Order Comment: COLLE CTOR TO SPECIFY Result Comment: DUPL ICATE ORDER Performed By: #### L 400.0001 ####[facility] [address] [place], [address] KETONE UR Normal Negative [facility] Comment on above: Order Comment: COLLE CTOR TO SPECIFY Result Comment: DUPL ICATE ORDER Performed By: #### L 400.0001 ####[facility] [address] [place], [address] LEUK ESTERASE Normal Negative [facility] Comment on above: Order Comment: COLLE CTOR TO SPECIFY Result Comment: DUPL ICATE ORDER Performed By: #### L 400.0001 ####[facility] [address] [place], [address] Mucus Ql (Urine sed) Normal [facility] Comment on above: Order Comment: COLLE CTOR TO SPECIFY Result Comment: DUPL ICATE ORDER Performed By: #### L 400.0001 ####[facility] [address] [place], [address] Nitrite Ql (U) Normal Negative [facility] Comment on above: Order Comment: COLLE CTOR TO SPECIFY Result Comment: DUPL ICATE ORDER Performed By: #### L 400.0001 ####[facility] [address] [place], [address] OCCULT BLOOD-UR Normal Negative [facility] Comment on above: Order Comment: COLLE CTOR TO SPECIFY Result Comment: DUPL ICATE ORDER Performed By: #### L 400.0001 ####[facility] [address] [place], [address] pH UR Normal 5.0 - 8.0 [facility] Comment on above: Order Comment: COLLE CTOR TO SPECIFY Result Comment: DUPL ICATE ORDER Performed By: #### L 400.0001 ####[facility] [address] [place], [address] PROT DIPSTX Normal Negative [facility] Comment on above: Order Comment: COLLE CTOR TO SPECIFY Result Comment: DUPL ICATE ORDER Performed By: #### L 400.0001 ####[facility] [address] [place], [address] RBC Normal 0-5 [facility] Comment on above: Order Comment: COLLE CTOR TO SPECIFY Result Comment: DUPL ICATE ORDER Performed By: #### L 400.0001 ####[facility] [address] [place], [address] SP.GR. DIPSTX Normal 1.002-1.030 [facility] Comment on above: Order Comment: COLLE CTOR TO SPECIFY Result Comment: DUPL ICATE ORDER Performed By: #### L 400.0001 ####[facility] [address] [place], [address] UR Preservative Normal [facility] Comment on above: Order Comment: COLLE CTOR TO SPECIFY Result Comment: DUPL ICATE ORDER Performed By: #### L 400.0001 ####[facility] [address] [place], [address] UROBILI Normal Normal [facility] Comment on above: Order Comment: COLLE CTOR TO SPECIFY Result Comment: DUPL ICATE ORDER Performed By: #### L 400.0001 ####[facility] [address] [place], [address] WBC Normal 0-5 [facility] Comment on above: Order Comment: COLLE CTOR TO SPECIFY Result Comment: DUPL ICATE ORDER Performed By: #### L 400.0001 ####[facility] [address] [place] [id number] Urine Drug Screen (VISTA)on 02-19-2025 AMPHETAMINES Negative Normal <1000 ng/mL [facility] Comment on above: Performed By: #### L 505.5000 ####[facility] [address] [facility] [address] BARBITIURATES Negative Normal < 200 ng/mL [facility] Comment on above: Performed By: #### L 505.5000 ####[facility] [address] [place] [id number] BENZODIAZIPINE Positive Normal < 200 ng/mL [facility] Comment on above: Result Comment: If c onfirmation testing is needed, a separate order will berequired to send out testing to the reference laboratory. Performed By: #### L 505.5000 ####[facility] [address] [place] [id number] BUP Ur Drug Scr Negative Normal < 200 ng/mL [facility] Comment on above: Performed By: #### L 505.5000 ####[facility] [address] [place] [address] COCAINE Negative Normal < 300 ng/mL [facility] Comment on above: Performed By: #### L 505.5000 ####[facility] [address] [place] [id number] Fentanyl Negative Normal <5 ng/mL [facility] Comment on above: Result Comment: CONF [...] testmnemonic: [facility] Performed By: #### L 505.5000 ####[facility] [address] [place], [address] METHADONE Negative Normal < 300 ng/mL [facility] Comment on above: Performed By: #### L 505.5000 ####[facility] [address] [facility] [address] OPIATES Negative Normal < 300 ng/mL [facility] Comment on above: Performed By: #### L 505.5000 ####[facility] [address] [place], [address] OXYCODONE Negative Normal < 100 ng/mL [facility] Comment on above: Performed By: #### L 505.5000 ####[facility] [address] [place], [address] PCP Negative Normal < 25 ng/mL [facility] Comment on above: Performed By: #### L 505.5000 ####[facility] [address] [place], [address] THC Negative Normal < 50 ng/mL [facility] Comment on above: Performed By: #### L 505.5000 ####[facility] [address] [place], [address] Wound Ctr History AND Physic dorothy 01-17-2025 Wound Ctr History & Physical Normal [facility] L3410.9994on 01-15-2025 [facility] Misc. 2 COMMENT Normal . [facility] Comment on above: Order Comment: [id number] 0SELENIUM - ROYAL BLUE - PLASMA Result Comment: Test Ordered: [id number] Selenium, Serum/PlasmaTest(s) 498853-Qrlmoitc, Serum/Plasmawas developed and its performance characteristicsdetermined by [facility]. It has not been cleared or approvedby the Food and Drug Administration.Selenium, Serum/Plasma 100 ug/L Reference Range: 93-198Performed at: [facility] [address] [place], [place] [id number] Director: Kim Mayorga MD, Phone: [phone] at: [facility] [place], [place] [id number] Director: Christian Alfaro PhD, Phone: [phone] Performed By: #### L 100.0500, L500.4050, L501.2300, L501.5000, L501.5200, L501.6710, L503.0106, L506.1001, L3300.0100, L3300.8200, L3300.9900, L3410.9992, L7400.3000, L3410.9996, L3410.9994 ####[facility] [address] [place], [address] L3410.9996on 01-13-2025 [facility] Misc[facility] 3 COMMENT Normal . [facility] Comment on above: Order Comment: [id number] 9VITAMIN A E - SERUM Result Comment: Test Ordered: [id number] Vitamin A and ETest(s) 889037-Sscoowc E(Alpha Tocopherol); 352470-Nrzcpan E(Gamma Tocopherol)was developed and its performance characteristicsdetermined [...] gamma-tocopheroldetermined from National Health and Nutrition ExaminationSurvey, 7159-5766. Individuals with alpha-tocopherol levelsless than 5.0 mg/L are considered vitamin E deficient.Performed at: [address] [id number] Director: Kim Mayorga MD, Phone: [phone] at: [address] [id number] Director: Christian Alfaro PhD, Phone: [phone] Performed By: #### L 100.0500, L500.4050, L501.2300, L501.5000, L501.5200, L501.6710, L503.0106, L506.1001, L3300.0100, L3300.8200, L3300.9900, L3410.9992, L7400.3000, L3410.9996, L3410.9994 ####[facility] [address] [place], [address] Methylmalonic Acid [facility] METHYLMAL ACID 239 nmol/L Normal 0-378 [facility] Comment on above: Order Comment: Test( s) 719200-Jcbkdvdgqdbmz Acid, Serumwas developed and its performance characteristicsdetermined by [facility]. It has not been cleared or approvedby the Food and Drug Administration. Result Comment: Perf ormed at: [address] [id number] Director: Kim Mayorga MD, Phone: [phone] Performed By: #### L 100.0500, L500.4050, L501.2300, L501.5000, L501.5200, L501.6710, L503.0106, L506.1001, L3300.0100, L3300.8200, L3300.9900, L3410.9992, L7400.3000, L3410.9996, L3410.9994 ####[facility] [address] [place], [address] Copper, Serum or Plasmaon COPPER, SERUM 131 ug/dL Normal 80-158 [facility] Comment on above: Order Comment: Test( s) 622137-Lsawmgc B6was developed and its performance characteristicsdetermined by [facility] It has not been cleared or approvedby the Food and Drug Administration. Result Comment: Dete ction Limit = 5 Performed By: #### L 100.0500, L500.4050, L501.2300, L501.5000, L501.5200, L501.6710, L503.0106, L506.1001, L3300.0100, L3300.8200, L3300.9900, L3410.9992, L7400.3000, L3410.9996, L3410.9994 ####[facility] [address] [place], [place], [address] L3300.8200on 01-12-2025 VITAMIN B6 1.2 ug/L Low 3.4-65.2 [facility] Comment on above: Order Comment: Test( s) 338314-Efuoyst B6was developed and its performance characteristicsdetermined by [facility] It has not been cleared or approvedby the Food and Drug Administration. Result Comment: Defi ciency: <3.4 Marginal: 3.4 - 5.1 Adequate: >5.1 Performed By: #### L 100.0500, L500.4050, L501.2300, L501.5000, L501.5200, L501.6710, L503.0106, L506.1001, L3300.0100, L3300.8200, L3300.9900, L3410.9992, L7400.3000, L3410.9996, L3410.9994 ####[facility] [address] [place], [place], [address] L3410.9992on 01-12-2025 [facility] Misc. COMMENT Normal . [facility] Comment on above: Order Comment: 75057 5WB MANGANESE - ROYAL BLUE - WB Result Comment: Test Ordered: [id number] Manganese, BloodTest(s) 195001-Mtkpnvxxg, Bloodwas developed and its performance characteristicsdetermined by [employer] It has not been cleared or approvedby the Food and Drug Administration.Manganese, Blood 8.8 ug/L [facility] Reference Range: 8.0-18.7Performed at: [facility], [place], [place] [id number] Director: Wendy Fowler MD, Phone: [phone] at: [address] [id number] Director: Christian Alfaro PhD, Phone: [phone] Performed By: #### L 100.0500, L500.4050, L501.2300, L501.5000, L501.5200, L501.6710, L503.0106, L506.1001, L3300.0100, L3300.8200, L3300.9900, L3410.9992, L7400.3000, L3410.9996, L3410.9994 ####[facility] [address] [place], [address] Zinc, Plasma or Serumon 12-25 ZINC,PLASMA/SER 71 ug/dL Normal 44-115 [facility] Comment on above: Order Comment: Test( s) 579984-Reocand B6was developed and its performance characteristicsdetermined by [employer] It has not been cleared or approvedby the Food and Drug Administration. Result Comment: Dete ction Limit = 5Performed at: [address] [id number] Director: Kim Mayorga MD, Phone: [phone] Performed By: #### L 100.0500, L500.4050, L501.2300, L501.5000, L501.5200, L501.6710, L503.0106, L506.1001, L3300.0100, L3300.8200, L3300.9900, L3410.9992, L7400.3000, L3410.9996, L3410.9994 ####[facility] [address] [place], [address] Basic metabolic 2000 panelon 01-11-2025 Anion gap [Moles/Vol] 16 mmol/L High 8 - 15 mmol/L [facility] Calcium [Mass/Vol] 9.6 mg/dL 8.5 - 10. 2 mg/dL [facility] Chloride [Moles/Vol] 104 mmol/L 98 - 107 mmol/L [facility] CO2 [Moles/Vol] 21 mmol/L Low 22 - 30 mmol/L [facility] Creatinine [Mass/Vol] 0.91 mg/dL 0.58 - 0.96 mg/dL [facility] GFR/1.73 sq M.predicted among non-blacks MDRD (S/P/Bld) [Vol rate/Area] 81 mL/min/{1.73_m2} - PINF [facility] Comment on above: Estimated Glomerular [...] 99 mg/dL 74 - 99 mg/dL [facility] Comment on above: The [place] Diab[employer] s Association (ADA) provides guidance for [...] Standards of Medical Care in Diabetes 2016, [place] [employer]. Diabetes Care. 2016.39(Suppl 1). Interpretation and review of laboratory results Abnormal [facility] Potassium [Moles/Vol] 3.4 mmol/L Low 3.7 - 5.1 mmol/L [facility] Sodium [Moles/Vol] 141 mmol/L 136 - 144 mmol/L [facility] Urea nitrogen [Mass/Vol] 17 mg/dL 7 - 21 mg/dL [facility] CBC W Auto Differential pane l (Bld)on 01-10-2025 Basophils (Bld) [#/Vol] 0.04 10*3/uL [facility] Basophils/100 WBC (Bld) 0.5 % [facility] Differential cell count method Nom (Bld) Auto [facility] Eosinophils (Bld) [#/Vol] 0.16 10*3/uL [facility] Eosinophils/100 WBC (Bld) 2 % [facility] Erythrocyte distribution width (RBC) [Ratio] 16 % High 11.5 - 15.0 % [facility] Hematocrit (Bld) [Volume fraction] 37.7 % 36.0 - 46.0 % [facility] Hemoglobin (Bld) [Mass/Vol] 12.2 g/dL 11.5 - 15.5 g/dL [facility] Immature granulocytes (Bld) [#/Vol] 0.03 10*3/uL [facility] Immature granulocytes/100 WBC (Bld) 0.4 % [facility] Interpretation and review of laboratory results Abnormal [facility] Lymphocytes (Bld) [#/Vol] 2.59 10*3/uL [facility] Lymphocytes/100 WBC (Bld) 32.4 % [facility] MCH (RBC) [Entitic mass] 27 pg 26.0 - 34.0 pg [facility] MCHC (RBC) [Mass/Vol] 32.4 g/dL 30.5 - 36.0 g/dL [facility] MCV (RBC) [Entitic vol] 83.4 fL 80.0 - 100.0 fL [facility] Monocytes (Bld) [#/Vol] 0.63 10*3/uL [facility] Monocytes/100 WBC (Bld) 7.9 % [facility] Neutrophils (Bld) [#/Vol] 4.55 10*3/uL [facility] Neutrophils/100 WBC (Bld) 56.8 % [facility] Nucleated RBC (Bld) [#/Vol] [facility] Nucleated RBC/100 WBC (Bld) [Ratio] 0 % /100 WBC [facility] Platelet mean volume (Bld) [Entitic vol] 10.1 fL 9.0 - 12.7 fL [facility] Platelets (Bld) [#/Vol] 332 10*3/uL [facility] RBC (Bld) [#/Vol] 4.52 10*6/uL 3.90 - 5.2 0 m/uL [facility] WBC (Bld) [#/Vol] 8 10*3/uL [facility] PT panel Coag (PPP)on 2024 INR Coag (PPP) [Relative time] 1.1 {INR} 0.9 - 1.3 [facility] Comment on above: Vitamin K Antagonist (VKA) Therapeutic Range: INR 2 to 3 (Target INR of 2.5) Note: For patients treated with VKA drugs, such as warfarin, the [place] [employer] 2012 Guideline recommends [...] and review of laboratory results Normal [facility] PT Coag (PPP) [Time] 11.4 s [facility] CBC-Complete Blood Cnt No Di ffon 01-08-2025 Erythrocyte distribution width (RBC) [Ratio] 16.0 % High 11.6-14.6 [facility] Comment on above: Performed By: #### L 100.0500, L500.4050, L501.2300, L501.5000, L501.5200, L501.6710, L503.0106, L506.1001, L3300.0100, L3300.8200, L3300.9900, L3410.9992, L7400.3000, L3410.9996, L3410.9994 ####[facility] [address] [place], [place], [id number] Hematocrit (Bld) [Volume fraction] 35.9 % Low 37-47 [facility] Comment on above: Performed By: #### L 100.0500, L500.4050, L501.2300, L501.5000, L501.5200, L501.6710, L503.0106, L506.1001, L3300.0100, L3300.8200, L3300.9900, L3410.9992, L7400.3000, L3410.9996, L3410.9994 ####[facility] [address] [place], [place], [address] Hemoglobin (Bld) [Mass/Vol] 11.9 g/dL Low 12.0-15.0 [facility] Comment on above: Performed By: #### L 100.0500, L500.4050, L501.2300, L501.5000, L501.5200, L501.6710, L503.0106, L506.1001, L3300.0100, L3300.8200, L3300.9900, L3410.9992, L7400.3000, L3410.9996, L3410.9994 ####[facility] [address] [place], [address] MCH (RBC) [Entitic mass] 27.1 pg Normal 27.0-32.0 [facility] Comment on above: Performed By: #### L 100.0500, L500.4050, L501.2300, L501.5000, L501.5200, L501.6710, L503.0106, L506.1001, L3300.0100, L3300.8200, L3300.9900, L3410.9992, L7400.3000, L3410.9996, L3410.9994 ####[facility] [address] [place], [place], [phone] MCHC (RBC) [Mass/Vol] 33.1 g/dL Normal 32-36 [facility] Comment on above: Performed By: #### L 100.0500, L500.4050, L501.2300, L501.5000, L501.5200, L501.6710, L503.0106, L506.1001, L3300.0100, L3300.8200, L3300.9900, L3410.9992, L7400.3000, L3410.9996, L3410.9994 ####[facility] [address] [place], [place], [phone] MCV (RBC) [Entitic vol] 81.8 fL Normal 81-99 [facility] Comment on above: Performed By: #### L 100.0500, L500.4050, L501.2300, L501.5000, L501.5200, L501.6710, L503.0106, L506.1001, L3300.0100, L3300.8200, L3300.9900, L3410.9992, L7400.3000, L3410.9996, L3410.9994 ####[facility] [address] [place], [address] Platelet mean volume (Bld) [Entitic vol] 9.7 fL Normal 6.2-12.0 [facility] Comment on above: Performed By: #### L 100.0500, L500.4050, L501.2300, L501.5000, L501.5200, L501.6710, L503.0106, L506.1001, L3300.0100, L3300.8200, L3300.9900, L3410.9992, L7400.3000, L3410.9996, L3410.9994 ####[facility] [address] [place], [address] Platelets (Bld) [#/Vol] 257 10*3/uL Normal 150-450 [facility] Comment on above: Performed By: #### L 100.0500, L500.4050, L501.2300, L501.5000, L501.5200, L501.6710, L503.0106, L506.1001, L3300.0100, L3300.8200, L3300.9900, L3410.9992, L7400.3000, L3410.9996, L3410.9994 ####[facility] [address] [place], [place], [phone] RBC (Bld) [#/Vol] 4.39 10*6/uL Normal 4.2-5.4 [facility] Comment on above: Performed By: #### L 100.0500, L500.4050, L501.2300, L501.5000, L501.5200, L501.6710, L503.0106, L506.1001, L3300.0100, L3300.8200, L3300.9900, L3410.9992, L7400.3000, L3410.9996, L3410.9994 ####[facility] [address] [place], [place], [phone] RDW SD 47.8 fl High 35.1-43.9 [facility] Comment on above: Performed By: #### L 100.0500, L500.4050, L501.2300, L501.5000, L501.5200, L501.6710, L503.0106, L506.1001, L3300.0100, L3300.8200, L3300.9900, L3410.9992, L7400.3000, L3410.9996, L3410.9994 ####[facility] [address] [place], [place], [phone] WBC (Bld) [#/Vol] 6.3 10*3/uL Normal 4.4-11.0 [facility] Comment on above: Performed By: #### L 100.0500, L500.4050, L501.2300, L501.5000, L501.5200, L501.6710, L503.0106, L506.1001, L3300.0100, L3300.8200, L3300.9900, L3410.9992, L7400.3000, L3410.9996, L3410.9994 ####[facility] [address] [place], [place], [phone] CRPon 01-08-2025 C-REACTIVE PROT 16.50 mg/L High 0.0-3.0 [facility] Comment on above: Performed By: #### L 100.0500, L500.4050, L501.2300, L501.5000, L501.5200, L501.6710, L503.0106, L506.1001, L3300.0100, L3300.8200, L3300.9900, L3410.9992, L7400.3000, L3410.9996, L3410.9994 ####[facility] [address] [place], [address] Comprehensive Metabolic Prof ilon 01-08-2025 Albumin [Mass/Vol] 3.5 g/dL Normal 3.5-5.0 [facility] Comment on above: Performed By: #### L 100.0500, L500.4050, L501.2300, L501.5000, L501.5200, L501.6710, L503.0106, L506.1001, L3300.0100, L3300.8200, L3300.9900, L3410.9992, L7400.3000, L3410.9996, L3410.9994 ####[facility] [address] [place], [place], [phone] Albumin/Globulin [Mass ratio] 0.9 {ratio} Normal 0.9-2.4 [facility] Comment on above: Performed By: #### L 100.0500, L500.4050, L501.2300, L501.5000, L501.5200, L501.6710, L503.0106, L506.1001, L3300.0100, L3300.8200, L3300.9900, L3410.9992, L7400.3000, L3410.9996, L3410.9994 ####[facility] [address] [place], [address] ALK PHOS 141 U/L High 35-104 [facility] Comment on above: Performed By: #### L 100.0500, L500.4050, L501.2300, L501.5000, L501.5200, L501.6710, L503.0106, L506.1001, L3300.0100, L3300.8200, L3300.9900, L3410.9992, L7400.3000, L3410.9996, L3410.9994 ####[facility] [address] [place], [address] ALT [Catalytic activity/Vol] 16 U/L Normal <=34 [facility] Comment on above: Performed By: #### L 100.0500, L500.4050, L501.2300, L501.5000, L501.5200, L501.6710, L503.0106, L506.1001, L3300.0100, L3300.8200, L3300.9900, L3410.9992, L7400.3000, L3410.9996, L3410.9994 ####[facility] [address] [place], [address] AST [Catalytic activity/Vol] 18 U/L Normal <=31 [facility] Comment on above: Performed By: #### L 100.0500, L500.4050, L501.2300, L501.5000, L501.5200, L501.6710, L503.0106, L506.1001, L3300.0100, L3300.8200, L3300.9900, L3410.9992, L7400.3000, L3410.9996, L3410.9994 ####[facility] [address] [place], [place], [phone] Bilirubin [Mass/Vol] 0.44 mg/dL Normal 0.00-1.30 [facility] Comment on above: Performed By: #### L 100.0500, L500.4050, L501.2300, L501.5000, L501.5200, L501.6710, L503.0106, L506.1001, L3300.0100, L3300.8200, L3300.9900, L3410.9992, L7400.3000, L3410.9996, L3410.9994 ####[facility] [address] [facility] [place], [place], [phone] BUN/CRE 17.3 RATIO Normal 10-20 [facility] Comment on above: Performed By: #### L 100.0500, L500.4050, L501.2300, L501.5000, L501.5200, L501.6710, L503.0106, L506.1001, L3300.0100, L3300.8200, L3300.9900, L3410.9992, L7400.3000, L3410.9996, L3410.9994 ####[facility] [address] [facility] [place], [place], [phone] Calcium [Mass/Vol] 9.0 mg/dL Normal 7.6-11.0 [facility] Comment on above: Performed By: #### L 100.0500, L500.4050, L501.2300, L501.5000, L501.5200, L501.6710, L503.0106, L506.1001, L3300.0100, L3300.8200, L3300.9900, L3410.9992, L7400.3000, L3410.9996, L3410.9994 ####[facility] [address] [place], [place], [phone] Chloride [Moles/Vol] 101 mmol/L Normal 98-108 [facility] Comment on above: Performed By: #### L 100.0500, L500.4050, L501.2300, L501.5000, L501.5200, L501.6710, L503.0106, L506.1001, L3300.0100, L3300.8200, L3300.9900, L3410.9992, L7400.3000, L3410.9996, L3410.9994 ####[facility] [address] [place], [place], [phone] CO2 [Moles/Vol] 19.2 mmol/L Low 21.0-32.0 [facility] Comment on above: Performed By: #### L 100.0500, L500.4050, L501.2300, L501.5000, L501.5200, L501.6710, L503.0106, L506.1001, L3300.0100, L3300.8200, L3300.9900, L3410.9992, L7400.3000, L3410.9996, L3410.9994 ####[facility] [address] [place], [address] Creatinine [Mass/Vol] 0.99 mg/dL Normal 0.70-1.20 [facility] Comment on above: Performed By: #### L 100.0500, L500.4050, L501.2300, L501.5000, L501.5200, L501.6710, L503.0106, L506.1001, L3300.0100, L3300.8200, L3300.9900, L3410.9992, L7400.3000, L3410.9996, L3410.9994 ####[facility] [address] [place], [place], [phone] GAP 17 High 5-15 [facility] Comment on above: Performed By: #### L 100.0500, L500.4050, L501.2300, L501.5000, L501.5200, L501.6710, L503.0106, L506.1001, L3300.0100, L3300.8200, L3300.9900, L3410.9992, L7400.3000, L3410.9996, L3410.9994 ####[facility] [address] [place], [address] GFR/1.73 sq M.predicted among non-blacks MDRD (S/P/Bld) [Vol rate/Area] 73 mL/min/{1.73_m2} Normal >60 [facility] Comment on above: Result Comment: mL/m in/1.73m2 CKD-EPI Creatinine Equation (2020) Performed By: #### L 100.0500, L500.4050, L501.2300, L501.5000, L501.5200, L501.6710, L503.0106, L506.1001, L3300.0100, L3300.8200, L3300.9900, L3410.9992, L7400.3000, L3410.9996, L3410.9994 ####[facility] [address] [place], [address] Globulin (S) [Mass/Vol] 4.0 g/dL Normal 2.2-4.2 [facility] Comment on above: Performed By: #### L 100.0500, L500.4050, L501.2300, L501.5000, L501.5200, L501.6710, L503.0106, L506.1001, L3300.0100, L3300.8200, L3300.9900, L3410.9992, L7400.3000, L3410.9996, L3410.9994 ####[facility] [address] [place], [place], [phone] Glucose [Mass/Vol] 148 mg/dL High 70-99 [facility] Comment on above: Performed By: #### L 100.0500, L500.4050, L501.2300, L501.5000, L501.5200, L501.6710, L503.0106, L506.1001, L3300.0100, L3300.8200, L3300.9900, L3410.9992, L7400.3000, L3410.9996, L3410.9994 ####[facility] [address] [place], [address] Potassium [Moles/Vol] 2.6 mmol/L Invalid Interpretation Code 3.3-5.1 [facility] Comment on above: Result Comment: Crit ical Result(s) Called at: 1539 by:??CLAUDIA ALEXANDRE Results read back by same. Performed By: #### L 100.0500, L500.4050, L501.2300, L501.5000, L501.5200, L501.6710, L503.0106, L506.1001, L3300.0100, L3300.8200, L3300.9900, L3410.9992, L7400.3000, L3410.9996, L3410.9994 ####[facility] [address] [place], [place], [phone] Sodium [Moles/Vol] 137 mmol/L Normal 133-145 [facility] Comment on above: Performed By: #### L 100.0500, L500.4050, L501.2300, L501.5000, L501.5200, L501.6710, L503.0106, L506.1001, L3300.0100, L3300.8200, L3300.9900, L3410.9992, L7400.3000, L3410.9996, L3410.9994 ####[facility] [address] [place], [place], [phone] T PROT 7.4 g/dL Normal 5.9-8.4 [facility] Comment on above: Performed By: #### L 100.0500, L500.4050, L501.2300, L501.5000, L501.5200, L501.6710, L503.0106, L506.1001, L3300.0100, L3300.8200, L3300.9900, L3410.9992, L7400.3000, L3410.9996, L3410.9994 ####[facility] [address] [place], [place], [phone] Urea nitrogen [Mass/Vol] 17 mg/dL Normal 4-19 [facility] Comment on above: Performed By: #### L 100.0500, L500.4050, L501.2300, L501.5000, L501.5200, L501.6710, L503.0106, L506.1001, L3300.0100, L3300.8200, L3300.9900, L3410.9992, L7400.3000, L3410.9996, L3410.9994 ####[facility] [address] [place], [place], [phone] Magnesiumon 01-08-2025 Magnesium [Mass/Vol] 2.1 mg/dL Normal 1.5-2.2 [facility] Comment on above: Performed By: #### L 100.0500, L500.4050, L501.2300, L501.5000, L501.5200, L501.6710, L503.0106, L506.1001, L3300.0100, L3300.8200, L3300.9900, L3410.9992, L7400.3000, L3410.9996, L3410.9994 ####[facility] [address] [place], [place], [phone] Phosphoruson 01-08-2025 Phosphate [Mass/Vol] 2.9 mg/dL Normal 2.7-4.5 [facility] Comment on above: Performed By: #### L 100.0500, L500.4050, L501.2300, L501.5000, L501.5200, L501.6710, L503.0106, L506.1001, L3300.0100, L3300.8200, L3300.9900, L3410.9992, L7400.3000, L3410.9996, L3410.9994 ####[facility] [address] [facility] [place], [place], [address] Triglycerideson 01-08-2025 Triglyceride [Mass/Vol] 90 mg/dL Normal [facility] Comment on above: Result Comment: The drugs N-Acetylcysteine and Metamizole may falselydepress this assay.Normal range: <150 mg/dLBorderline High: 150-199 mg/dLHigh: 200-499 mg/dLVery High: >500 mg/dL Performed By: #### L 100.0500, L500.4050, L501.2300, L501.5000, L501.5200, L501.6710, L503.0106, L506.1001, L3300.0100, L3300.8200, L3300.9900, L3410.9992, L7400.3000, L3410.9996, L3410.9994 ####[facility] [address] [place], [address] Vitamin B12on 01-08-2025 Cobalamin (Vitamin B12) [Mass/Vol] 381 pg/mL Normal 180-914 [facility] Comment on above: Performed By: #### L 100.0500, L500.4050, L501.2300, L501.5000, L501.5200, L501.6710, L503.0106, L506.1001, L3300.0100, L3300.8200, L3300.9900, L3410.9992, L7400.3000, L3410.9996, L3410.9994 ####[facility] [address] [place], [address] Vitamin D,25 Hydroxyon 01-08 Vitamin D 25-OH 8.9 ng/mL Low 30-100 [facility] Comment on above: Result Comment: Yamileth min D StatusDeficiency: <20 ng/mL (50nmol/L)Insufficiency: 20-30 ng/mL (50-75 nmol/L)Sufficiency: 30-100 ng/mL (75-250 nmol/L)Toxicity: >100 ng/mL (>250 nmol/L) Performed By: #### L 100.0500, L500.4050, L501.2300, L501.5000, L501.5200, L501.6710, L503.0106, L506.1001, L3300.0100, L3300.8200, L3300.9900, L3410.9992, L7400.3000, L3410.9996, L3410.9994 ####[facility] [address] [place], [address] CNOVon 12-31-2024 CNOV Normal [facility] CNPNon 12-25-2024 CNPN Normal [facility] CNPTOUTREACHon 12-25-2024 CNPTOUTREACH Normal [facility] CBC W/Diff, Automatedon 06-3 0-2024 Absolute Lymph 2.63 X10 3/uL Normal 0.83-4.51 [facility] Comment on above: Performed By: #### L 100.0100, L500.4050, L501.2300, L501.5200 ####[facility] [address] [place], [address] Absolute Neut 7.8 X10 3/uL High 2.0-7.7 [facility] Comment on above: Performed By: #### L 100.0100, L500.4050, L501.2300, L501.5200 ####[facility] [address] [place], [address] Basophils/100 WBC (Bld) 0.4 % Normal 0-1 [facility] Comment on above: Performed By: #### L 100.0100, L500.4050, L501.2300, L501.5200 ####[facility] [address] [place], [address] Eosinophils/100 WBC (Bld) 2.6 % Normal 0-5 [facility] Comment on above: Performed By: #### L 100.0100, L500.4050, L501.2300, L501.5200 ####[facility] [address] [place], [address] Erythrocyte distribution width (RBC) [Ratio] 19.0 % High 11.6-14.6 [facility] Comment on above: Performed By: #### L 100.0100, L500.4050, L501.2300, L501.5200 ####[facility] [address] [place], [address] Hematocrit (Bld) [Volume fraction] 32.9 % Low 37-47 [facility] Comment on above: Performed By: #### L 100.0100, L500.4050, L501.2300, L501.5200 ####[facility] [address] [place], [address] Hemoglobin (Bld) [Mass/Vol] 10.4 g/dL Low 12.0-15.0 [facility] Comment on above: Performed By: #### L 100.0100, L500.4050, L501.2300, L501.5200 ####[facility] [address] [place], [address] IG% 0.600 Normal 0.0-0.9 [facility] Comment on above: Result Comment: IG% - Immature Granulocytes (promyelocytes, myelocytes andmetamyelocytes) > 1% indicates that a LEFT SHIFT is Present. Performed By: #### L 100.0100, L500.4050, L501.2300, L501.5200 ####[facility] [address] [place], [address] Lymphocytes/100 WBC (Bld) 22.8 % Normal 19-41 [facility] Comment on above: Performed By: #### L 100.0100, L500.4050, L501.2300, L501.5200 ####[facility] [address] [place], [address] MCH (RBC) [Entitic mass] 27.2 pg Normal 27.0-32.0 [facility] Comment on above: Performed By: #### L 100.0100, L500.4050, L501.2300, L501.5200 ####[facility] [address] [place], [address] MCHC (RBC) [Mass/Vol] 31.6 g/dL Low 32-36 [facility] Comment on above: Performed By: #### L 100.0100, L500.4050, L501.2300, L501.5200 ####[facility] [address] [place], [address] MCV (RBC) [Entitic vol] 85.9 fL Normal 81-99 [facility] Comment on above: Performed By: #### L 100.0100, L500.4050, L501.2300, L501.5200 ####[facility] [address] [place], [address] Monocytes/100 WBC (Bld) 5.7 % Normal 0-10 [facility] Comment on above: Performed By: #### L 100.0100, L500.4050, L501.2300, L501.5200 ####[facility] [address] [place], [address] Neutrophils/100 WBC (Bld) 67.9 % Normal 47-70 [facility] Comment on above: Performed By: #### L 100.0100, L500.4050, L501.2300, L501.5200 ####[facility] [address] [place], [address] Nucleated RBC (Bld) [#/Vol] 0 10*3/uL Normal 0-5 [facility] Comment on above: Performed By: #### L 100.0100, L500.4050, L501.2300, L501.5200 ####[facility] [address] [place], [address] Platelet mean volume (Bld) [Entitic vol] 9.2 fL Normal 6.2-12.0 [facility] Comment on above: Performed By: #### L 100.0100, L500.4050, L501.2300, L501.5200 ####[facility] [address] [place], [address] Platelets (Bld) [#/Vol] 500 10*3/uL High 150-450 [facility] Comment on above: Performed By: #### L 100.0100, L500.4050, L501.2300, L501.5200 ####[facility] [address] [place], [address] RBC (Bld) [#/Vol] 3.83 10*6/uL Low 4.2-5.4 [facility] Comment on above: Performed By: #### L 100.0100, L500.4050, L501.2300, L501.5200 ####[facility] [address] [place], [address] RDW SD 59.3 fl High 35.1-43.9 [facility] Comment on above: Performed By: #### L 100.0100, L500.4050, L501.2300, L501.5200 ####[facility] [address] [place], [address] WBC (Bld) [#/Vol] 11.5 10*3/uL High 4.4-11.0 [facility] Comment on above: Performed By: #### L 100.0100, L500.4050, L501.2300, L501.5200 ####[facility] [address] [place], [address] Comprehensive Metabolic Prof [facility] 12-24-2024 Albumin [Mass/Vol] 3.6 g/dL Normal 3.5-5.0 [facility] Comment on above: Performed By: #### L 100.0100, L500.4050, L501.2300, L501.5200 ####[facility] [address] [place], [address] Albumin/Globulin [Mass ratio] 0.9 {ratio} Normal 0.9-2.4 [facility] Comment on above: Performed By: #### L 100.0100, L500.4050, L501.2300, L501.5200 ####[facility] [address] [place], [address] ALK PHOS 192 U/L High 35-104 [facility] Comment on above: Performed By: #### L 100.0100, L500.4050, L501.2300, L501.5200 ####[facility] [address] [place], [address] ALT [Catalytic activity/Vol] 77 U/L High <=34 [facility] Comment on above: Performed By: #### L 100.0100, L500.4050, L501.2300, L501.5200 ####[facility] [address] [place], [address] AST [Catalytic activity/Vol] 42 U/L High <=31 [facility] Comment on above: Performed By: #### L 100.0100, L500.4050, L501.2300, L501.5200 ####[facility] [address] [place], [address] Bilirubin [Mass/Vol] 0.28 mg/dL Normal 0.00-1.30 [facility] Comment on above: Performed By: #### L 100.0100, L500.4050, L501.2300, L501.5200 ####[facility] [address] [place], [address] BUN/CRE 25.0 RATIO High 10-20 [facility] Comment on above: Performed By: #### L 100.0100, [id number], L501.2300, [id number] ####[facility] [address] [place], [address] Calcium [Mass/Vol] 9.1 mg/dL Normal 7.6-11.0 [facility] Comment on above: Performed By: #### L 100.0100, L500.4050, L501.2300, L501.5200 ####[facility] [address] [place], [address] Chloride [Moles/Vol] 105 mmol/L Normal 98-108 [facility] Comment on above: Performed By: #### L 100.0100, L500.4050, L501.2300, L501.5200 ####[facility] [address] [place], [address] CO2 [Moles/Vol] 20.1 mmol/L Low 21.0-32.0 [facility] Comment on above: Performed By: #### L 100.0100, L500.4050, L501.2300, L501.5200 ####[facility] [address] [place], [address] Creatinine [Mass/Vol] 0.94 mg/dL Normal 0.70-1.20 [facility] Comment on above: Performed By: #### L 100.0100, L500.4050, L501.2300, L501.5200 ####[facility] [address] [place], [address] GAP 14 Normal 5-15 [facility] Comment on above: Performed By: #### L 100.0100, L500.4050, L501.2300, L501.5200 ####[facility] [address] [place], [address] GFR/1.73 sq M.predicted among non-blacks MDRD (S/P/Bld) [Vol rate/Area] 79 mL/min/{1.73_m2} Normal >60 [facility] Comment on above: Result Comment: mL/m in/1.73m2 CKD-EPI Creatinine Equation (2020) Performed By: #### L 100.0100, L500.4050, L501.2300, L501.5200 ####[facility] [address] [place], [address] Globulin (S) [Mass/Vol] 3.8 g/dL Normal 2.2-4.2 [facility] Comment on above: Performed By: #### L 100.0100, L500.4050, L501.2300, L501.5200 ####[facility] [address] [place], [address] Glucose [Mass/Vol] 104 mg/dL High 70-99 [facility] Comment on above: Performed By: #### L 100.0100, L500.4050, L501.2300, L501.5200 ####[facility] [address] [place], [address] Potassium [Moles/Vol] 3.7 mmol/L Normal 3.3-5.1 [facility] Comment on above: Performed By: #### L 100.0100, L500.4050, L501.2300, L501.5200 ####[facility] [address] [place], [address] Sodium [Moles/Vol] 139 mmol/L Normal 133-145 [facility] Comment on above: Performed By: #### L 100.0100, L500.4050, L501.2300, L501.5200 ####[facility] [address] [place], [address] T PROT 7.3 g/dL Normal 5.9-8.4 [facility] Comment on above: Performed By: #### L 100.0100, L500.4050, L501.2300, L501.5200 ####[facility] [address] [place], [address] Urea nitrogen [Mass/Vol] 23 mg/dL High 4-19 [facility] Comment on above: Performed By: #### L 100.0100, L500.4050, L501.2300, L501.5200 ####[facility] [address] [place], [address] Magnesiumon 12-24-2024 Magnesium [Mass/Vol] 2.1 mg/dL Normal 1.5-2.2 [facility] Comment on above: Performed By: #### L 100.0100, L500.4050, L501.2300, L501.5200 ####[facility] [address] [place], [address] Phosphoruson 12-24-2024 Phosphate [Mass/Vol] 3.7 mg/dL Normal 2.7-4.5 [facility] Comment on above: Performed By: #### L 100.0100, L500.4050, L501.2300, L501.5200 ####[facility] [address] [place], [address] CASE MANAGEMon 12-21-2024 CASE MANAGEM Normal [facility] CBC W Auto Differential pane l (Bld)on 12-21-2024 Basophils (Bld) [#/Vol] 0.03 10*3/uL Normal <0.11 [facility] Comment on above: Order Comment: Speci men Type: BLOOD SPECIMENOrdering Facility: [facility] Address: [address] [place] [address] Performed By: #### 5 7021-8 ####[facility] LABCLIA [id number] [place] [id number] [place] Basophils/100 WBC (Bld) 0.4 % Normal [facility] Comment on above: Order Comment: Speci men Type: BLOOD SPECIMENOrdering Facility: [facility] Address: [address] [place] [address] Performed By: #### 5 7021-8 ####[facility] LABCLIA [id number] [place] [address] [place] Differential cell count method Nom (Bld) Auto Normal [facility] Comment on above: Order Comment: Speci men Type: BLOOD SPECIMENOrdering Facility: [facility] Address: [address] [place] [address] Performed By: #### 5 7021-8 ####[facility] LABCLIA [id number] [place] [id number] [place] Eosinophils (Bld) [#/Vol] 0.30 10*3/uL Normal <0.46 [facility] Comment on above: Order Comment: Speci men Type: BLOOD SPECIMENOrdering Facility: [facility] Address: [address] [place] [address] Performed By: #### 5 7021-8 ####[facility] LABCLIA [id number] [address], [facility]95 [place] Eosinophils/100 WBC (Bld) 4.0 % Normal [facility] Comment on above: Order Comment: Speci men Type: BLOOD SPECIMENOrdering Facility: [facility] Address: [address] [place] [address] Performed By: #### 5 7021-8 ####[facility] LABIA [id number] [place] [address] [place] Erythrocyte distribution width (RBC) [Ratio] 19.8 % High 11.5-15.0 [facility] Comment on above: Order Comment: Speci men Type: BLOOD SPECIMENOrdering Facility: [facility] Address: [address] [place] [address] Performed By: #### 5 7021-8 ####[facility] LABIA [id number] [place] [address] [place] Hematocrit (Bld) [Volume fraction] 30.5 % Low 36.0-46.0 [facility] Comment on above: Order Comment: Speci men Type: BLOOD SPECIMENOrdering Facility: [facility] Address: [address] [place] [address] Performed By: #### 5 7021-8 ####[facility] LABIA [id number] [place] [address] [place] Hemoglobin (Bld) [Mass/Vol] 9.7 g/dL Low 11.5-15.5 [facility] Comment on above: Order Comment: Speci men Type: BLOOD SPECIMENOrdering Facility: [facility] Address: [address] [place] [address] Performed By: #### 5 7021-8 ####[facility] LABIA [id number] [place] [address] [place] Immature granulocytes (Bld) [#/Vol] 0.05 10*3/uL Normal <0.10 [facility] Comment on above: Order Comment: Speci men Type: BLOOD SPECIMENOrdering Facility: [facility] Address: [address] [place] [address] Performed By: #### 5 7021-8 ####[facility] LABCLIA [id number] [place] [address] [place] Immature granulocytes/100 WBC (Bld) 0.7 % Normal [facility] Comment on above: Order Comment: Speci men Type: BLOOD SPECIMENOrdering Facility: [facility] Address: [address] [place] [address] Performed By: #### 5 7021-8 ####[facility] LABIA [id number] [place] [address] [place] Lymphocytes (Bld) [#/Vol] 1.12 10*3/uL Normal 1.00-4.00 [facility] Comment on above: Order Comment: Speci men Type: BLOOD SPECIMENOrdering Facility: [facility] Address: [address] [place] [address] Performed By: #### 5 7021-8 ####[facility] LABIA [id number] [place] [address] [place] Lymphocytes/100 WBC (Bld) 14.9 % Normal [facility] Comment on above: Order Comment: Speci men Type: BLOOD SPECIMENOrdering Facility: [facility] Address: [address] [place] [address] Performed By: #### 5 7021-8 ####[facility] LABIA [id number] [place] [address] [place] MCH (RBC) [Entitic mass] 27.4 pg Normal 26.0-34.0 [facility] Comment on above: Order Comment: Speci men Type: BLOOD SPECIMENOrdering Facility: [facility] Address: [address] [place] [address] Performed By: #### 5 7021-8 ####[facility] LABIA [id number] [place] [address] [place] MCHC (RBC) [Mass/Vol] 31.8 g/dL Normal 30.5-36.0 [facility] Comment on above: Order Comment: Speci men Type: BLOOD SPECIMENOrdering Facility: [facility] Address: [address] [place] [address] Performed By: #### 5 7021-8 ####[facility] LABIA [id number] [place] [address] [place] MCV (RBC) [Entitic vol] 86.2 fL Normal 80.0-100.0 [facility] Comment on above: Order Comment: Speci men Type: BLOOD SPECIMENOrdering Facility: [facility] Address: [address] [place] [address] Performed By: #### 5 7021-8 ####[facility] LABIA [id number] [place] [address] [place] Monocytes (Bld) [#/Vol] 0.58 10*3/uL Normal <0.87 [facility] Comment on above: Order Comment: Speci men Type: BLOOD SPECIMENOrdering Facility: [facility] Address: [address] [place] [address] Performed By: #### 5 7021-8 ####[facility] LABIA [id number] [place] [address] [place] Monocytes/100 WBC (Bld) 7.7 % Normal [facility] Comment on above: Order Comment: Speci men Type: BLOOD SPECIMENOrdering Facility: [facility] Address: [address] [place] [address] Performed By: #### 5 7021-8 ####[facility] LABIA [id number] [place] [address] [place] Neutrophils (Bld) [#/Vol] 5.45 10*3/uL Normal 1.45-7.50 [facility] Comment on above: Order Comment: Speci men Type: BLOOD SPECIMENOrdering Facility: [facility] Address: [address] [place] [address] Performed By: #### 5 7021-8 ####[facility] LABCLIA [id number] [place] [address] [place] Neutrophils/100 WBC (Bld) 72.3 % Normal [facility] Comment on above: Order Comment: Speci men Type: BLOOD SPECIMENOrdering Facility: [facility] Address: [address] [place] [address] Performed By: #### 5 7021-8 ####[facility] LABCLIA [id number] [place] [address] [place] Nucleated RBC (Bld) [#/Vol] 10*3/uL Normal <0.01 [facility] Comment on above: Order Comment: Speci men Type: BLOOD SPECIMENOrdering Facility: [facility] Address: [address] [place] [address] Performed By: #### 5 7021-8 ####[facility] LABIA [id number] [place] [address] [place] Nucleated RBC/100 WBC (Bld) [Ratio] 0.0 /100 WBC Normal [facility] Comment on above: Order Comment: Speci men Type: BLOOD SPECIMENOrdering Facility: [facility] Address: [address] [place] [address] Performed By: #### 5 7021-8 ####[facility] LABIA [id number] [place] [id number] [place] Platelet mean volume (Bld) [Entitic vol] 9.7 fL Normal 9.0-12.7 [facility] Comment on above: Order Comment: Speci men Type: BLOOD SPECIMENOrdering Facility: [facility] Address: [address] [place] [address] Performed By: #### 5 7021-8 ####[facility] LABIA [id number] [place] [id number] [place] Platelets (Bld) [#/Vol] 428 10*3/uL High 150-400 [facility] Comment on above: Order Comment: Speci men Type: BLOOD SPECIMENOrdering Facility: [facility] Address: [address] [place] [address] Performed By: #### 5 7021-8 ####[facility] LABCLIA [id number] [place] [address] [place] RBC (Bld) [#/Vol] 3.54 10*6/uL Low 3.90-5.20 [facility] Comment on above: Order Comment: Speci men Type: BLOOD SPECIMENOrdering Facility: [facility] Address: [address] [place] [address] Performed By: #### 5 7021-8 ####[facility] LABCLIA [id number] [place] [address] [place] WBC (Bld) [#/Vol] 7.53 10*3/uL Normal 3.70-11.00 [facility] Comment on above: Order Comment: Speci men Type: BLOOD SPECIMENOrdering Facility: [facility] Address: [address] [place] [address] Performed By: #### 5 7021-8 ####[facility] [id number] [place] [address] [place] CNCNPATEDon 12-21-2024 CNCNPATED Normal [facility] CNPNon 12-21-2024 CNPN Normal [facility] CONSULT PROGon 12-21-2024 CONSULT PROG Normal [facility] CONSULT PROG Normal [facility] CRP SerPl-mCncon 12-21-2024 CRP [Mass/Vol] 2.9 mg/dL High <0.9 [facility] Comment on above: Order Comment: Speci men Type: BLOOD SPECIMENOrdering Facility: [facility] Address: [address] [place] [address] Performed By: #### 1 988-5 ####[facility] LABCLIA [id number] [address] [address] [place] Comprehensive metabolic 2000 panelon 12-21-2024 Albumin [Mass/Vol] 2.9 g/dL Low 3.9-4.9 [facility] Comment on above: Order Comment: Speci men Type: BLOOD SPECIMENOrdering Facility: [facility] Address: [address] [place] [address] Performed By: #### 2 4323-8, , 2776- ####[facility] LABCLIA [id number] [address] [address] [place] ALP [Catalytic activity/Vol] 123 U/L Normal 34-123 [facility] Comment on above: Order Comment: Speci men Type: BLOOD SPECIMENOrdering Facility: [facility] Address: [address] [place] [address] Performed By: #### 2 4323-8, , 2776-06 ####[facility] LABCLIA [id number] [address] [address] [place] ALT [Catalytic activity/Vol] 34 U/L Normal 7-38 [facility] Comment on above: Order Comment: Speci men Type: BLOOD SPECIMENOrdering Facility: [facility] Address: [address] [place], [place] [address] Performed By: #### 2 4323-8, , 2776-06 ####[facility] LABCLIA [id number] [address] [address] [place] Anion gap [Moles/Vol] 9 mmol/L Normal 8-15 [facility] Comment on above: Order Comment: Speci men Type: BLOOD SPECIMENOrdering Facility: [facility] Address: [address] [place], [place] [address] Performed By: #### 2 4323-8, 19511-0, 2776- ####[facility] LABCLIA [id number] [place] [id number] [place] AST [Catalytic activity/Vol] 26 U/L Normal 13-35 [facility] Comment on above: Order Comment: Speci men Type: BLOOD SPECIMENOrdering Facility: [facility] Address: [address] [place] [address] Performed By: #### 2 4323-8, , 2776-06 ####[facility] LABCLIA [id number] [place] [id number] [place] Bilirubin [Mass/Vol] 0.2 mg/dL Normal 0.2-1.3 [facility] Comment on above: Order Comment: Speci men Type: BLOOD SPECIMENOrdering Facility: [facility] Address: [address] [place] [address] Performed By: #### 2 4323-8, , 2776-06 ####[facility] LABIA [id number] [place] [id number] [place] Calcium [Mass/Vol] 9.1 mg/dL Normal 8.5-10.2 [facility] Comment on above: Order Comment: Speci men Type: BLOOD SPECIMENOrdering Facility: [facility] Address: [address] [place] [address] Performed By: #### 2 4323-8, , 2776-06 ####[facility] LABIA [id number] [place] [id number] [place] Chloride [Moles/Vol] 105 mmol/L Normal 98-107 [facility] Comment on above: Order Comment: Speci men Type: BLOOD SPECIMENOrdering Facility: [facility] Address: [address] [place] [address] Performed By: #### 2 4323-8, , 2776-06 ####[facility] LABIA [id number] [address] [place] [address] [place] CO2 [Moles/Vol] 23 mmol/L Normal 22-30 [facility] Comment on above: Order Comment: Dora finch Type: BLOOD SPECIMENOrdering Facility: [facility] Address: [address] [place] [address] Performed By: #### 2 4323-8, , 2776-06 ####[facility] LABCLIA [id number] [place] [id number] [place] Creatinine [Mass/Vol] 0.70 mg/dL Normal 0.58-0.96 [facility] Comment on above: Order Comment: Dora finch Type: BLOOD SPECIMENOrdering Facility: [facility] Address: [address] [place] [address] Performed By: #### 2 4323-8, , 2776-06 ####[facility] LABCLIA [id number] [address] STATES OF [facility] Creatinine and Glomerular filtration rate.predicted panel (S/P/Bld) 112 mL/min/1.73m??? Normal >=60 [facility] Comment on above: Order Comment: Dora finch Type: BLOOD SPECIMENOrdering Facility: [facility] Address: [address] [place] [address] Result Comment: Zeny mated Glomerular Filtration Rate [...] Performed By: #### 2 4323-8, , 2776-06 ####[facility] LABCLIA [id number] [place] [id number] [place] Glucose [Mass/Vol] 125 mg/dL High 74-99 [facility] Comment on above: Order Comment: Florii men Type: BLOOD SPECIMENOrdering Facility: [facility] Address: [address] [place] [address] Result Comment: The [place] Diabetes Association (ADA) provides guidance for cutoff [...] Standards of Medical Care in Diabetes 2016, [place] [employer]. Diabetes Care. 2016.39(Suppl 1). Performed By: #### 2 4323-8, , 2776-06 ####[facility] LABCLIA [id number] [place] [address] [place] Potassium [Moles/Vol] 4.1 mmol/L Normal 3.7-5.1 [facility] Comment on above: Order Comment: Speci men Type: BLOOD SPECIMENOrdering Facility: [facility] Address: [address] [place] [address] Performed By: #### 2 4323-8, , 2776-06 ####[facility] LABCLIA [id number] [place] [id number] [place] Protein [Mass/Vol] 6.2 g/dL Low 6.3-8.0 [facility] Comment on above: Order Comment: Speci men Type: BLOOD SPECIMENOrdering Facility: [facility] Address: [address] [place], [place] [address] Performed By: #### 2 4323-8, , 2776-06 ####[facility] LABCLIA [id number] [facility] [address] [address] [place] Sodium [Moles/Vol] 137 mmol/L Normal 136-144 [facility] Comment on above: Order Comment: Speci men Type: BLOOD SPECIMENOrdering Facility: [facility] Address: [address] [place] [address] Performed By: #### 2 4323-8, , 2776-06 ####[facility] LABCLIA [id number] [address] [place] [address] [place] Urea nitrogen [Mass/Vol] 15 mg/dL Normal 7-21 [facility] Comment on above: Order Comment: Speci men Type: BLOOD SPECIMENOrdering Facility: [facility] Address: [address] [place], [place] [address] Performed By: #### 2 4323-8, , 2776-06 ####[facility] LABCLIA [id number] [address] [place] [address] [place] Magnesium SerPl-mCncon 12-21 Magnesium [Mass/Vol] 2.1 mg/dL Normal 1.7-2.3 [facility] Comment on above: Order Comment: Speci men Type: BLOOD SPECIMENOrdering Facility: [facility] Address: [address] [place], [place] [address] Performed By: #### 2 432-8, , 2776-06 ####[facility] LABCLIA [id number] [address] [place] [address] [place] PT EDon 12-21-2024 PT ED Normal [facility] PT ED Normal [facility] Phosphate SerPl-mCncon 12-21 Phosphate [Mass/Vol] 4.4 mg/dL Normal 2.7-4.8 [facility] Comment on above: Order Comment: Speci men Type: BLOOD SPECIMENOrdering Facility: [facility] Address: [address] [place] [address] Performed By: #### 2 4323-8, , 2776-06 ####[facility] LABCLIA [id number] [address] [place] [address] [place] CASE MANAGEMon 12-20-2024 CASE MANAGEM Normal [facility] CASE MANAGEM Normal [facility] CBC W Auto Differential pane l (Bld)on 12-20-2024 Basophils (Bld) [#/Vol] 0.04 10*3/uL Normal <0.11 [facility] Comment on above: Order Comment: Speci men Type: BLOOD SPECIMENOrdering Facility: [facility] Address: [address] [place] [address] Performed By: #### 5 7021-8 ####[facility] LABIA [id number] [place] [address] [place] Basophils/100 WBC (Bld) 0.5 % Normal [facility] Comment on above: Order Comment: Speci men Type: BLOOD SPECIMENOrdering Facility: [facility] Address: [address] [place] [address] Performed By: #### 5 7021-8 ####[facility] LABCLIA [id number] [place] [address] [place] Differential cell count method Nom (Bld) Auto Normal [facility] Comment on above: Order Comment: Speci men Type: BLOOD SPECIMENOrdering Facility: [facility] Address: [address] [place] [address] Performed By: #### 5 7021-8 ####[facility] LABCLIA [id number] [place] [address] [place] Eosinophils (Bld) [#/Vol] 0.25 10*3/uL Normal <0.46 [facility] Comment on above: Order Comment: Speci men Type: BLOOD SPECIMENOrdering Facility: [facility] Address: [address] [place] [address] Performed By: #### 5 7021-8 ####[facility] LABCLIA [id number] [place] [address] [place] Eosinophils/100 WBC (Bld) 3.4 % Normal [facility] Comment on above: Order Comment: Speci men Type: BLOOD SPECIMENOrdering Facility: [facility] Address: [address] [place] [address] Performed By: #### 5 7021-8 ####[facility] LABIA [id number] [place] [address] [place] Erythrocyte distribution width (RBC) [Ratio] 20.0 % High 11.5-15.0 [facility] Comment on above: Order Comment: Speci men Type: BLOOD SPECIMENOrdering Facility: [facility] Address: [address] [place] [address] Performed By: #### 5 7021-8 ####[facility] LABIA [id number] [place] [address] [place] Hematocrit (Bld) [Volume fraction] 26.9 % Low 36.0-46.0 [facility] Comment on above: Order Comment: Speci men Type: BLOOD SPECIMENOrdering Facility: [facility] Address: [address] [place] [address] Performed By: #### 5 7021-8 ####[facility] LABIA [id number] [place] [address] [place] Hemoglobin (Bld) [Mass/Vol] 8.6 g/dL Low 11.5-15.5 [facility] Comment on above: Order Comment: Speci men Type: BLOOD SPECIMENOrdering Facility: [facility] Address: [address] [place] [address] Performed By: #### 5 7021-8 ####[facility] LABIA [id number] [place] [address] [place] Immature granulocytes (Bld) [#/Vol] 0.05 10*3/uL Normal <0.10 [facility] Comment on above: Order Comment: Speci men Type: BLOOD SPECIMENOrdering Facility: [facility] Address: [address] [place] [address] Performed By: #### 5 7021-8 ####[facility] LABCLIA [id number] [place] [address] [place] Immature granulocytes/100 WBC (Bld) 0.7 % Normal [facility] Comment on above: Order Comment: Speci men Type: BLOOD SPECIMENOrdering Facility: [facility] Address: [address] [place] [address] Performed By: #### 5 7021-8 ####[facility] LABCLIA [id number] [place] [address] [place] Lymphocytes (Bld) [#/Vol] 1.26 10*3/uL Normal 1.00-4.00 [facility] Comment on above: Order Comment: Speci men Type: BLOOD SPECIMENOrdering Facility: [facility] Address: [address] [place] [address] Performed By: #### 5 7021-8 ####[facility] LABIA [id number] [place] [address] [place] Lymphocytes/100 WBC (Bld) 17.0 % Normal [facility] Comment on above: Order Comment: Speci men Type: BLOOD SPECIMENOrdering Facility: [facility] Address: [address] [place] [address] Performed By: #### 5 7021-8 ####[facility] LABIA [id number] [place] [address] [place] [place] MCH (RBC) [Entitic mass] 27.0 pg Normal 26.0-34.0 [facility] Comment on above: Order Comment: Speci men Type: BLOOD SPECIMENOrdering Facility: [facility] Address: [address] [place] [address] Performed By: #### 5 7021-8 ####[facility] LABIA [id number] [place] [address] [place] MCHC (RBC) [Mass/Vol] 32.0 g/dL Normal 30.5-36.0 [facility] Comment on above: Order Comment: Speci men Type: BLOOD SPECIMENOrdering Facility: [facility] Address: [address] [place] [address] Performed By: #### 5 7021-8 ####[facility] LABCLIA [id number] [place] [address] [place] MCV (RBC) [Entitic vol] 84.6 fL Normal 80.0-100.0 [facility] Comment on above: Order Comment: Speci men Type: BLOOD SPECIMENOrdering Facility: [facility] Address: [address] [place] [address] Performed By: #### 5 7021-8 ####[facility] LABIA [id number] [place] [address] [place] Monocytes (Bld) [#/Vol] 0.50 10*3/uL Normal <0.87 [facility] Comment on above: Order Comment: Speci men Type: BLOOD SPECIMENOrdering Facility: [facility] Address: [address] [place] [address] Performed By: #### 5 7021-8 ####[facility] LABIA [id number] [place] [address] [place] Monocytes/100 WBC (Bld) 6.7 % Normal [facility] Comment on above: Order Comment: Speci men Type: BLOOD SPECIMENOrdering Facility: [facility] Address: [address] [place] [address] Performed By: #### 5 7021-8 ####[facility] LABIA [id number] [place] [address] [place] Neutrophils (Bld) [#/Vol] 5.33 10*3/uL Normal 1.45-7.50 [facility] Comment on above: Order Comment: Speci men Type: BLOOD SPECIMENOrdering Facility: [facility] Address: [address] [place] [address] Performed By: #### 5 7021-8 ####[facility] LABCLIA [id number] [place] [address] [place] Neutrophils/100 WBC (Bld) 71.7 % Normal [facility] Comment on above: Order Comment: Speci men Type: BLOOD SPECIMENOrdering Facility: [facility] Address: [address] [place] [address] Performed By: #### 5 7021-8 ####[facility] LABCLIA [id number] [address], [place] [address] [place] Nucleated RBC (Bld) [#/Vol] 10*3/uL Normal <0.01 [facility] Comment on above: Order Comment: Speci men Type: BLOOD SPECIMENOrdering Facility: [facility] Address: [address] [place] [address] Performed By: #### 5 7021-8 ####[facility] LABIA [id number] [place] [address] [place] Nucleated RBC/100 WBC (Bld) [Ratio] 0.0 /100 WBC Normal [facility] Comment on above: Order Comment: Speci men Type: BLOOD SPECIMENOrdering Facility: [facility] Address: [address] [place] [address] Performed By: #### 5 7021-8 ####[facility] LABIA [id number] [place] [address] [place] Platelet mean volume (Bld) [Entitic vol] 9.2 fL Normal 9.0-12.7 [facility] Comment on above: Order Comment: Speci men Type: BLOOD SPECIMENOrdering Facility: [facility] Address: [address] [place] [address] Performed By: #### 5 7021-8 ####[facility] LABCLIA [id number] [place] [address] [place] Platelets (Bld) [#/Vol] 365 10*3/uL Normal 150-400 [facility] Comment on above: Order Comment: Speci men Type: BLOOD SPECIMENOrdering Facility: [facility] Address: [address] [place] [address] Performed By: #### 5 7021-8 ####[facility] LABCLIA [id number] [place] [id number] [place] RBC (Bld) [#/Vol] 3.18 10*6/uL Low 3.90-5.20 [facility] Comment on above: Order Comment: Speci men Type: BLOOD SPECIMENOrdering Facility: [facility] Address: [address] [place] [address] Performed By: #### 5 7021-8 ####[facility] LABCLIA [id number] [place] [address] [place] WBC (Bld) [#/Vol] 7.43 10*3/uL Normal 3.70-11.00 [facility] Comment on above: Order Comment: Speci men Type: BLOOD SPECIMENOrdering Facility: [facility] Address: [address] [place] [address] Performed By: #### 5 7021-8 ####[facility] LABIA [id number] [place] [id number] [place] CONSULTon 12-20-2024 CONSULT Normal [facility] CONSULT Normal [facility] CONSULT PROGon 12-20-2024 CONSULT PROG Normal [facility] Comprehensive metabolic 2000 panelon 12-20-2024 Albumin [Mass/Vol] 2.7 g/dL Low 3.9-4.9 [facility] Comment on above: Order Comment: Speci men Type: BLOOD SPECIMENOrdering Facility: [facility] Address: [address] [place] [address] Performed By: #### 1 9123-9, 36048-0, 2777-1 ####[facility] LABCLIA [id number] [address] [place] [address] [place] ALP [Catalytic activity/Vol] 95 U/L Normal 34-123 [facility] Comment on above: Order Comment: Speci men Type: BLOOD SPECIMENOrdering Facility: [facility] Address: [address] [place] [address] Performed By: #### 1 9123-9, 88934-3, 277- ####[facility] LABCLIA [id number] [address] [address] [place] ALT [Catalytic activity/Vol] 23 U/L Normal 7-38 [facility] Comment on above: Order Comment: Speci men Type: BLOOD SPECIMENOrdering Facility: [facility] Address: [address] [place] [address] Performed By: #### 1 9123-9, 79846-9, 277- ####[facility] LABCLIA [id number] [place] [id number] [place] Anion gap [Moles/Vol] 11 mmol/L Normal 8-15 [facility] Comment on above: Order Comment: Speci men Type: BLOOD SPECIMENOrdering Facility: [facility] Address: [address] [place] [address] Performed By: #### 1 9123-9, 95650-3, 277- ####[facility] LABCLIA [id number] [place] [id number] [place] AST [Catalytic activity/Vol] 20 U/L Normal 13-35 [facility] Comment on above: Order Comment: Speci men Type: BLOOD SPECIMENOrdering Facility: [facility] Address: [address] [place] [address] Performed By: #### 1 9123-9, 69211-0, 2777-1 ####[facility] LABCLIA [id number] [address] [id number] [address] [place] Bilirubin [Mass/Vol] 0.2 mg/dL Normal 0.2-1.3 [facility] Comment on above: Order Comment: Speci men Type: BLOOD SPECIMENOrdering Facility: [facility] Address: [address] [place] [address] Performed By: #### 1 9123-9, 44525-5, 2776- ####[facility] LABCLIA [id number] [address] [place] [address] [place] Calcium [Mass/Vol] 8.8 mg/dL Normal 8.5-10.2 [facility] Comment on above: Order Comment: Speci men Type: BLOOD SPECIMENOrdering Facility: [facility] Address: [address] [place] [address] Performed By: #### 1 9123-9, 95129-3, 2776- ####[facility] LABCLIA [id number] [place] [address] [place] Chloride [Moles/Vol] 106 mmol/L Normal 98-107 [facility] Comment on above: Order Comment: Speci men Type: BLOOD SPECIMENOrdering Facility: [facility] Address: [address] [place] [address] Performed By: #### 1 9123-9, 02035-3, 2776- ####[facility] LABCLIA [id number] [address], [facility]95 [place] CO2 [Moles/Vol] 22 mmol/L Normal 22-30 [facility] Comment on above: Order Comment: Speci men Type: BLOOD SPECIMENOrdering Facility: [facility] Address: [address] [place] [address] Performed By: #### 1 9123-9, 75573-4, 2776- ####[facility] LABCLIA [id number] [address] [place] [address] [place] Creatinine [Mass/Vol] 0.68 mg/dL Normal 0.58-0.96 [facility] Comment on above: Order Comment: Dora finch Type: BLOOD SPECIMENOrdering Facility: [facility] Address: [address] [place] [address] Performed By: #### 1 9123-9, 74351-0, 277- ####[facility] LABCLIA [id number] [place] [address] [place] Creatinine and Glomerular filtration rate.predicted panel (S/P/Bld) 112 mL/min/1.73m??? Normal >=60 [facility] Comment on above: Order Comment: Dora finch Type: BLOOD SPECIMENOrdering Facility: [facility] Address: [address] [place] [address] Result Comment: Zeny mated Glomerular Filtration Rate [...] actual GFR. Performed By: #### 1 9123-9, 83710-0, 27712-25 ####[facility] LABCLIA [id number] [place] [id number] [place] Glucose [Mass/Vol] 127 mg/dL High 74-99 [facility] Comment on above: Order Comment: Dora finch Type: BLOOD SPECIMENOrdering Facility: [facility] Address: [address] [place] [address] Result Comment: The [place] Diabetes Association (ADA) provides guidance for cutoff [...] Standards of Medical Care in Diabetes 2016, [place] [employer]. Diabetes Care. 2016.39(Suppl 1). Performed By: #### 1 9123-9, 25925-3, 277- ####[facility] LABCLIA [id number] [address] [address] [place] Potassium [Moles/Vol] 4.0 mmol/L Normal 3.7-5.1 [facility] Comment on above: Order Comment: Speci men Type: BLOOD SPECIMENOrdering Facility: [facility] Address: [address] [place], [place] [address] Performed By: #### 1 9123-9, 10859-2, 27712-25 ####[facility] LABCLIA [id number] [address] [address] [place] Protein [Mass/Vol] 5.9 g/dL Low 6.3-8.0 [facility] Comment on above: Order Comment: Speci men Type: BLOOD SPECIMENOrdering Facility: [facility] Address: [address] [place], [place] [address] Performed By: #### 1 9123-9, 22154-8, 2776-06 ####[facility] LABCLIA [id number] [address] [address] [place] Sodium [Moles/Vol] 139 mmol/L Normal 136-144 [facility] Comment on above: Order Comment: Speci men Type: BLOOD SPECIMENOrdering Facility: [facility] Address: [address] [place] [address] Performed By: #### 1 9123-9, 24383-4, 2776-06 ####[facility] LABCLIA [id number] [address] [address] [place] Urea nitrogen [Mass/Vol] 10 mg/dL Normal 7-21 [facility] Comment on above: Order Comment: Speci men Type: BLOOD SPECIMENOrdering Facility: [facility] Address: [address] [place], [place] [address] Performed By: #### 1 9123-9, 06254-4, 2777-1 ####[facility] LABCLIA [id number] [address], [facility]95 [place] Magnesium SerPl-ncon 12-20 Magnesium [Mass/Vol] 1.9 mg/dL Normal 1.7-2.3 [facility] Comment on above: Order Comment: Speci men Type: BLOOD SPECIMENOrdering Facility: [facility] Address: [address] [place] [address] Performed By: #### 1 9123-9, 46073-5, 2777-1 ####[facility] LABCLIA [id number] [place] [address] [place] NUTRITIONon 12-20-2024 NUTRITION Normal [facility] Phosphate SerPl-mCncon 12-20 Phosphate [Mass/Vol] 4.6 mg/dL Normal 2.7-4.8 [facility] Comment on above: Order Comment: Speci men Type: BLOOD SPECIMENOrdering Facility: [facility] Address: [address] [place] [address] Performed By: #### 1 9123-9, 73925-0, 2777-1 ####[facility] LABCLIA [id number] [address], [place] [address] [place] CASE MANAGEMon 12-19-2024 CASE MANAGEM Normal [facility] CBC W Auto Differential pane l (Bld)on 12-19-2024 Basophils (Bld) [#/Vol] 10*3/uL Normal <0.11 [facility] Comment on above: Order Comment: Speci men Type: BLOOD SPECIMENOrdering Facility: [facility] Address: [address] [place] [address] Performed By: #### 5 7021-8 ####[facility] LABCLIA [id number] [id number], [place] [address] [place] Basophils/100 WBC (Bld) 0.3 % Normal [facility] Comment on above: Order Comment: Speci men Type: BLOOD SPECIMENOrdering Facility: [facility] Address: [address] [place] [address] Performed By: #### 5 7021-8 ####[facility] LABCLIA [id number] [place] [address] [place] Differential cell count method Nom (Bld) Auto Normal [facility] Comment on above: Order Comment: Speci men Type: BLOOD SPECIMENOrdering Facility: [facility] Address: [address] [place] [address] Performed By: #### 5 7021-8 ####[facility] LABCLIA [id number] [place] [address] [place] Eosinophils (Bld) [#/Vol] 0.24 10*3/uL Normal <0.46 [facility] Comment on above: Order Comment: Speci men Type: BLOOD SPECIMENOrdering Facility: [facility] Address: [address] [place] [address] Performed By: #### 5 7021-8 ####[facility] LABCLIA [id number] [place] [address] [place] Eosinophils/100 WBC (Bld) 3.0 % Normal [facility] Comment on above: Order Comment: Speci men Type: BLOOD SPECIMENOrdering Facility: [facility] Address: [address] [place] [address] Performed By: #### 5 7021-8 ####[facility] LABCLIA [id number] [place] [address] [place] Erythrocyte distribution width (RBC) [Ratio] 19.9 % High 11.5-15.0 [facility] Comment on above: Order Comment: Speci men Type: BLOOD SPECIMENOrdering Facility: [facility] Address: [address] [place] [address] Performed By: #### 5 7021-8 ####[facility] LABCLIA [id number] [address], [place] [address] [place] Hematocrit (Bld) [Volume fraction] 26.4 % Low 36.0-46.0 [facility] Comment on above: Order Comment: Speci men Type: BLOOD SPECIMENOrdering Facility: [facility] Address: [address] [place] [address] Performed By: #### 5 7021-8 ####[facility] LABIA [id number] [address], [place] [address] [place] Hemoglobin (Bld) [Mass/Vol] 8.5 g/dL Low 11.5-15.5 [facility] Comment on above: Order Comment: Speci men Type: BLOOD SPECIMENOrdering Facility: [facility] Address: [address] [place] [address] Performed By: #### 5 7021-8 ####[facility] LABIA [id number] [address], [place] [address] [place] Immature granulocytes (Bld) [#/Vol] 0.05 10*3/uL Normal <0.10 [facility] Comment on above: Order Comment: Speci men Type: BLOOD SPECIMENOrdering Facility: [facility] Address: [address] [place] [address] Performed By: #### 5 7021-8 ####[facility] LABIA [id number] [place] [address] [place] Immature granulocytes/100 WBC (Bld) 0.6 % Normal [facility] Comment on above: Order Comment: Speci men Type: BLOOD SPECIMENOrdering Facility: [facility] Address: [address] [place] [address] Performed By: #### 5 7021-8 ####[facility] LABIA [id number] [place] [address] [place] Lymphocytes (Bld) [#/Vol] 1.35 10*3/uL Normal 1.00-4.00 [facility] Comment on above: Order Comment: Speci men Type: BLOOD SPECIMENOrdering Facility: [facility] Address: [address] [place] [address] Performed By: #### 5 7021-8 ####[facility] LABCLIA [id number] [place] [address] [place] Lymphocytes/100 WBC (Bld) 17.1 % Normal [facility] Comment on above: Order Comment: Speci men Type: BLOOD SPECIMENOrdering Facility: [facility] Address: [address] [place] [address] Performed By: #### 5 7021-8 ####[facility] LABIA [id number] [place] [address] [place] MCH (RBC) [Entitic mass] 27.3 pg Normal 26.0-34.0 [facility] Comment on above: Order Comment: Speci men Type: BLOOD SPECIMENOrdering Facility: [facility] Address: [address] [place] [address] Performed By: #### 5 7021-8 ####[facility] LABIA [id number] [address] [place] MCHC (RBC) [Mass/Vol] 32.2 g/dL Normal 30.5-36.0 [facility] Comment on above: Order Comment: Speci men Type: BLOOD SPECIMENOrdering Facility: [facility] Address: [address] [place] [address] Performed By: #### 5 7021-8 ####[facility] LABIA [id number] [address] [place] MCV (RBC) [Entitic vol] 84.9 fL Normal 80.0-100.0 [facility] Comment on above: Order Comment: Speci men Type: BLOOD SPECIMENOrdering Facility: [facility] Address: [address] [place] [address] Performed By: #### 5 7021-8 ####[facility] LABCLIA [id number] [address], [place] [address] [place] Monocytes (Bld) [#/Vol] 0.67 10*3/uL Normal <0.87 [facility] Comment on above: Order Comment: Speci men Type: BLOOD SPECIMENOrdering Facility: [facility] Address: [address] [place] [address] Performed By: #### 5 7021-8 ####[facility] LABCLIA [id number] [address], [place] [address] [place] Monocytes/100 WBC (Bld) 8.5 % Normal [facility] Comment on above: Order Comment: Speci men Type: BLOOD SPECIMENOrdering Facility: [facility] Address: [address] [place] [address] Performed By: #### 5 7021-8 ####[facility] LABCLIA [id number] [address], [facility]95 [place] Neutrophils (Bld) [#/Vol] 5.58 10*3/uL Normal 1.45-7.50 [facility] Comment on above: Order Comment: Speci men Type: BLOOD SPECIMENOrdering Facility: [facility] Address: [address] [place] [address] Performed By: #### 5 7021-8 ####[facility] LABCLIA [id number] [facility] [address], [facility]95 [place] Neutrophils/100 WBC (Bld) 70.5 % Normal [facility] Comment on above: Order Comment: Speci men Type: BLOOD SPECIMENOrdering Facility: [facility] Address: [address] [place] [address] Performed By: #### 5 7021-8 ####[facility] LABCLIA [id number] [address] [place] [address] [place] Nucleated RBC (Bld) [#/Vol] 10*3/uL Normal <0.01 [facility] Comment on above: Order Comment: Speci men Type: BLOOD SPECIMENOrdering Facility: [facility] Address: [address] [place] [address] Performed By: #### 5 7021-8 ####[facility] LABCLIA [id number] [place] [address] [place] Nucleated RBC/100 WBC (Bld) [Ratio] 0.0 /100 WBC Normal [facility] Comment on above: Order Comment: Speci men Type: BLOOD SPECIMENOrdering Facility: [facility] Address: [address] [place] [address] Performed By: #### 5 7021-8 ####[facility] LABCLIA [id number] [place] [address] [place] Platelet mean volume (Bld) [Entitic vol] 9.7 fL Normal 9.0-12.7 [facility] Comment on above: Order Comment: Speci men Type: BLOOD SPECIMENOrdering Facility: [facility] Address: [address] [place] [address] Performed By: #### 5 7021-8 ####[facility] LABIA [id number] [place] [address] [place] Platelets (Bld) [#/Vol] 362 10*3/uL Normal 150-400 [facility] Comment on above: Order Comment: Speci men Type: BLOOD SPECIMENOrdering Facility: [facility] Address: [address] [place] [address] Performed By: #### 5 7021-8 ####[facility] LABCLIA [id number] [place] [address] [place] RBC (Bld) [#/Vol] 3.11 10*6/uL Low 3.90-5.20 [facility] Comment on above: Order Comment: Speci men Type: BLOOD SPECIMENOrdering Facility: [facility] Address: [address] [place], [place] [address] Performed By: #### 5 7021-8 ####[facility] LABCLIA [id number] [address] [place] [address] [place] WBC (Bld) [#/Vol] 7.91 10*3/uL Normal 3.70-11.00 [facility] Comment on above: Order Comment: Speci men Type: BLOOD SPECIMENOrdering Facility: [facility] Address: [address] [place] [address] Performed By: #### 5 7021-8 ####[facility] LABCLIA [id number] [address] [address] [place] CONSULT PROGon 12-19-2024 CONSULT PROG Normal [facility] CRP SerPl-mCncon 12-19-2024 CRP [Mass/Vol] 5.7 mg/dL High <0.9 [facility] Comment on above: Order Comment: Speci men Type: BLOOD SPECIMENOrdering Facility: [facility] Address: [address] [place] [address] Performed By: #### 2 4323-8, 1987-10, , 2776-06 ####[facility] LABCLIA [id number] [address] [address] [place] Comprehensive metabolic 2000 panelon 12-19-2024 Albumin [Mass/Vol] 2.8 g/dL Low 3.9-4.9 [facility] Comment on above: Order Comment: Speci men Type: BLOOD SPECIMENOrdering Facility: [facility] Address: [address] [place], [place] [address] Performed By: #### 2 4323-8, 1987-10, , 2776-06 ####[facility] LABCLIA [id number] [address] [place] [address] [place] ALP [Catalytic activity/Vol] 85 U/L Normal 34-123 [facility] Comment on above: Order Comment: Speci men Type: BLOOD SPECIMENOrdering Facility: [facility] Address: [address] [place] [address] Performed By: #### 2 432-8, 1987-10, , 2776-06 ####[facility] LABCLIA [id number] [place] [address] [place] ALT [Catalytic activity/Vol] 12 U/L Normal 7-38 [facility] Comment on above: Order Comment: Speci men Type: BLOOD SPECIMENOrdering Facility: [facility] Address: [address] [place] [address] Performed By: #### 2 4328, 1987-10, , 2776-06 ####[facility] LABCLIA [id number] [place] [address] [place] Anion gap [Moles/Vol] 11 mmol/L Normal 8-15 [facility] Comment on above: Order Comment: Speci men Type: BLOOD SPECIMENOrdering Facility: [facility] Address: [address] [place] [address] Performed By: #### 2 4328, 1987-10, , 2776-06 ####[facility] LABIA [id number] [place] [address] [place] AST [Catalytic activity/Vol] 12 U/L Low 13-35 [facility] Comment on above: Order Comment: Speci men Type: BLOOD SPECIMENOrdering Facility: [facility] Address: [address] [place], [place] [id number] Performed By: #### 2 4328, 1987-10, , 2776-06 ####[facility] LABCLIA [id number] [address] [address] [place] Bilirubin [Mass/Vol] 0.3 mg/dL Normal 0.2-1.3 [facility] Comment on above: Order Comment: Speci men Type: BLOOD SPECIMENOrdering Facility: [facility] Address: [address] [place] [address] Performed By: #### 2 432-8, 1987-10, , 2776-06 ####[facility] LABCLIA [id number] [facility] [id number], [place] [address] [place] Calcium [Mass/Vol] 8.6 mg/dL Normal 8.5-10.2 [facility] Comment on above: Order Comment: Speci men Type: BLOOD SPECIMENOrdering Facility: [facility] Address: [address] [place], [place] [address] Performed By: #### 2 432-8, 1987-10, , 2776-06 ####[facility] LABCLIA [id number] [address] [address] [place] Chloride [Moles/Vol] 104 mmol/L Normal 98-107 [facility] Comment on above: Order Comment: Speci men Type: BLOOD SPECIMENOrdering Facility: [facility] Address: [address] [place], [place] [address] Performed By: #### 2 4323-8, 1987-10, , 2776-06 ####[facility] LABCLIA [id number] [facility] [address] [address] [place] CO2 [Moles/Vol] 22 mmol/L Normal 22-30 [facility] Comment on above: Order Comment: Speci men Type: BLOOD SPECIMENOrdering Facility: [facility] Address: [address] [place] [address] Performed By: #### 2 4323-8, 1987-10, , 2776-06 ####[facility] LABCLIA [id number] [facility] [id number], [place] [address] [place] Creatinine [Mass/Vol] 0.64 mg/dL Normal 0.58-0.96 [facility] Comment on above: Order Comment: Speci men Type: BLOOD SPECIMENOrdering Facility: [facility] Address: [address] [place] [id number] Performed By: #### 2 4323-8, 1987-10, , 2776-06 ####[facility] LABIA [id number] [address] [address] [place] Creatinine and Glomerular filtration rate.predicted panel (S/P/Bld) 114 mL/min/1.73m??? Normal >=60 [facility] Comment on above: Order Comment: Dora stef Type: BLOOD SPECIMENOrdering Facility: [facility] Address: [address] [place] [address] Result Comment: Zeny mated Glomerular Filtration Rate [...] By: #### 2 4323-8, 1987-10, , 2776-06 ####[facility] LABCLIA [id number] [address] [address] [place] Glucose [Mass/Vol] 103 mg/dL High 74-99 [facility] Comment on above: Order Comment: Dora finch Type: BLOOD SPECIMENOrdering Facility: [facility] Address: [address] [place] [address] Result Comment: The [place] Diabetes Association (ADA) provides guidance for cutoff [...] Standards of Medical Care in Diabetes 2016, [place] [employer] Association. Diabetes Care. 2016.39(Suppl 1). Performed By: #### 2 432-8, 1987-10, , 2776-06 ####[facility] LABCLIA [id number] [facility] [address] [place] [address] [place] Potassium [Moles/Vol] 3.6 mmol/L Low 3.7-5.1 [facility] Comment on above: Order Comment: Speci men Type: BLOOD SPECIMENOrdering Facility: [facility] Address: [address] [place] [address] Performed By: #### 2 432-8, 1987-10, , 2776-06 ####[facility] LABIA [id number] [address] [place] [address] [place] Protein [Mass/Vol] 5.5 g/dL Low 6.3-8.0 [facility] Comment on above: Order Comment: Speci men Type: BLOOD SPECIMENOrdering Facility: [facility] Address: [address] [place] [address] Performed By: #### 2 4328, 1987-10, , 2776-06 ####[facility] LABIA [id number] [address] [place] [address] [place] Sodium [Moles/Vol] 137 mmol/L Normal 136-144 [facility] Comment on above: Order Comment: Speci men Type: BLOOD SPECIMENOrdering Facility: [facility] Address: [address] [place] [address] Performed By: #### 2 4323-8, 1987-10, , 2776-06 ####[facility] LABCLIA [id number] [facility] [id number], [place] [address] [place] Urea nitrogen [Mass/Vol] 11 mg/dL Normal 7-21 [facility] Comment on above: Order Comment: Speci men Type: BLOOD SPECIMENOrdering Facility: [facility] Address: [address] [place] [address] Performed By: #### 2 4323-8, 1987-10, , 2776-06 ####[facility] LABCLIA [id number] [place] [id number] [place] Magnesium SerPl-mCncon 12-19 Magnesium [Mass/Vol] 1.9 mg/dL Normal 1.7-2.3 [facility] Comment on above: Order Comment: Speci men Type: BLOOD SPECIMENOrdering Facility: [facility] Address: [address] [place] [address] Performed By: #### 2 4323-8, 1987-10, , 2776-06 ####[facility] LABCLIA [id number] [place] [address] [place] NURSING PROGon 12-19-2024 NURSING PROG Normal [facility] Phosphate SerPl-mCncon 12-19 Phosphate [Mass/Vol] 4.2 mg/dL Normal 2.7-4.8 [facility] Comment on above: Order Comment: Speci men Type: BLOOD SPECIMENOrdering Facility: [facility] Address: [address] [place] [address] Performed By: #### 2 4323-8, 1987-10, , 2776-06 ####[facility] LABCLIA [id number] [place] [address] [place] CBC W Auto Differential pane l (Bld)on 12-18-2024 Basophils (Bld) [#/Vol] 0.03 10*3/uL Normal <0.11 [facility] Comment on above: Order Comment: Speci men Type: BLOOD SPECIMENOrdering Facility: [facility] Address: [address] [place] [address] Performed By: #### 5 7021-8 ####[facility] LABCLIA [id number] [address], [place] [address] [place] Basophils/100 WBC (Bld) 0.4 % Normal [facility] Comment on above: Order Comment: Speci men Type: BLOOD SPECIMENOrdering Facility: [facility] Address: [address] [place] [address] Performed By: #### 5 7021-8 ####[facility] LABCLIA [id number] [address], [place] [address] [place] Differential cell count method Nom (Bld) Auto Normal [facility] Comment on above: Order Comment: Speci men Type: BLOOD SPECIMENOrdering Facility: [facility] Address: [address] [place] [address] Performed By: #### 5 7021-8 ####[facility] LABCLIA [id number] [address], [place] [address] [place] Eosinophils (Bld) [#/Vol] 0.31 10*3/uL Normal <0.46 [facility] Comment on above: Order Comment: Speci men Type: BLOOD SPECIMENOrdering Facility: [facility] Address: [address] [place] [address] Performed By: #### 5 7021-8 ####[facility] LABCLIA [id number] [address], [place] [address] [place] Eosinophils/100 WBC (Bld) 4.4 % Normal [facility] Comment on above: Order Comment: Speci men Type: BLOOD SPECIMENOrdering Facility: [facility] Address: [address] [place] [address] Performed By: #### 5 7021-8 ####[facility] LABCLIA [id number] [address], [place] [address] [place] Erythrocyte distribution width (RBC) [Ratio] 21.3 % High 11.5-15.0 [facility] Comment on above: Order Comment: Speci men Type: BLOOD SPECIMENOrdering Facility: [facility] Address: [address] [place] [address] Performed By: #### 5 7021-8 ####[facility] LABCLIA [id number] [place] [address] [place] Hematocrit (Bld) [Volume fraction] 21.9 % Low 36.0-46.0 [facility] Comment on above: Order Comment: Speci men Type: BLOOD SPECIMENOrdering Facility: [facility] Address: [address] [place] [address] Performed By: #### 5 7021-8 ####[facility] LABIA [id number] [place] [address] [place] Hemoglobin (Bld) [Mass/Vol] 6.8 g/dL Low 11.5-15.5 [facility] Comment on above: Order Comment: Speci men Type: BLOOD SPECIMENOrdering Facility: [facility] Address: [address] [place] [address] Performed By: #### 5 7021-8 ####[facility] LABIA [id number] [place] [address] [place] Immature granulocytes (Bld) [#/Vol] 0.05 10*3/uL Normal <0.10 [facility] Comment on above: Order Comment: Speci men Type: BLOOD SPECIMENOrdering Facility: [facility] Address: [address] [place] [address] Performed By: #### 5 7021-8 ####[facility] LABCLIA [id number] [place] [address] [place] Immature granulocytes/100 WBC (Bld) 0.7 % Normal [facility] Comment on above: Order Comment: Speci men Type: BLOOD SPECIMENOrdering Facility: [facility] Address: [address] [place] [address] Performed By: #### 5 7021-8 ####[facility] LABCLIA [id number] [place] [address] [place] Lymphocytes (Bld) [#/Vol] 1.19 10*3/uL Normal 1.00-4.00 [facility] Comment on above: Order Comment: Speci men Type: BLOOD SPECIMENOrdering Facility: [facility] Address: [address] [place] [address] Performed By: #### 5 7021-8 ####[facility] LABCLIA [id number] [address] [place] Lymphocytes/100 WBC (Bld) 17.0 % Normal [facility] Comment on above: Order Comment: Speci men Type: BLOOD SPECIMENOrdering Facility: [facility] Address: [address] [place] [address] Performed By: #### 5 7021-8 ####[facility] LABCLIA [id number] [place] [address] [place] MCH (RBC) [Entitic mass] 26.7 pg Normal 26.0-34.0 [facility] Comment on above: Order Comment: Speci men Type: BLOOD SPECIMENOrdering Facility: [facility] Address: [address] [place] [address] Performed By: #### 5 7021-8 ####[facility] LABCLIA [id number] [place] [address] [place] MCHC (RBC) [Mass/Vol] 31.1 g/dL Normal 30.5-36.0 [facility] Comment on above: Order Comment: Speci men Type: BLOOD SPECIMENOrdering Facility: [facility] Address: [address] [place] [address] Performed By: #### 5 7021-8 ####[facility] LABCLIA [id number] [place] [address] [place] MCV (RBC) [Entitic vol] 85.9 fL Normal 80.0-100.0 [facility] Comment on above: Order Comment: Speci men Type: BLOOD SPECIMENOrdering Facility: [facility] Address: [address] [place] [address] Performed By: #### 5 7021-8 ####[facility] LABCLIA [id number] [place] [address] [place] Monocytes (Bld) [#/Vol] 0.48 10*3/uL Normal <0.87 [facility] Comment on above: Order Comment: Speci men Type: BLOOD SPECIMENOrdering Facility: [facility] Address: [address] [place] [address] Performed By: #### 5 7021-8 ####[facility] LABCLIA [id number] [place] [address] [place] Monocytes/100 WBC (Bld) 6.8 % Normal [facility] Comment on above: Order Comment: Speci men Type: BLOOD SPECIMENOrdering Facility: [facility] Address: [address] [place] [address] Performed By: #### 5 7021-8 ####[facility] LABCLIA [id number] [place] [address] [place] Neutrophils (Bld) [#/Vol] 4.96 10*3/uL Normal 1.45-7.50 [facility] Comment on above: Order Comment: Speci men Type: BLOOD SPECIMENOrdering Facility: [facility] Address: [address] [place] [address] Performed By: #### 5 7021-8 ####[facility] LABCLIA [id number] [place] [id number] [place] Neutrophils/100 WBC (Bld) 70.7 % Normal [facility] Comment on above: Order Comment: Speci men Type: BLOOD SPECIMENOrdering Facility: [facility] Address: [address] [place] [address] Performed By: #### 5 7021-8 ####[facility] LABCLIA [id number] [place] [address] [place] Nucleated RBC (Bld) [#/Vol] 10*3/uL Normal <0.01 [facility] Comment on above: Order Comment: Speci men Type: BLOOD SPECIMENOrdering Facility: [facility] Address: [address] [place] [address] Performed By: #### 5 7021-8 ####[facility] LABIA [id number] [place] [address] [place] Nucleated RBC/100 WBC (Bld) [Ratio] 0.0 /100 WBC Normal [facility] Comment on above: Order Comment: Speci men Type: BLOOD SPECIMENOrdering Facility: [facility] Address: [address] [place] [address] Performed By: #### 5 7021-8 ####[facility] LABIA [id number] [place] [address] [place] Platelet mean volume (Bld) [Entitic vol] 9.7 fL Normal 9.0-12.7 [facility] Comment on above: Order Comment: Speci men Type: BLOOD SPECIMENOrdering Facility: [facility] Address: [address] [place] [address] Performed By: #### 5 7021-8 ####[facility] LABIA [id number] [place] [address] [place] Platelets (Bld) [#/Vol] 265 10*3/uL Normal 150-400 [facility] Comment on above: Order Comment: Speci men Type: BLOOD SPECIMENOrdering Facility: [facility] Address: [address] [place] [address] Performed By: #### 5 7021-8 ####[facility] LABCLIA [id number] [address], [facility]95 [place] RBC (Bld) [#/Vol] 2.55 10*6/uL Low 3.90-5.20 [facility] Comment on above: Order Comment: Speci men Type: BLOOD SPECIMENOrdering Facility: [facility] Address: [address] [place] [address] Performed By: #### 5 7021-8 ####[facility] LABCLIA [id number] [place] [address] [place] WBC (Bld) [#/Vol] 7.02 10*3/uL Normal 3.70-11.00 [facility] Comment on above: Order Comment: Speci men Type: BLOOD SPECIMENOrdering Facility: [facility] Address: [address] [place] [address] Performed By: #### 5 7021-8 ####[facility] LABCLIA [id number] [place] [address] [place] CBC panel Auto (Bld)on 12-18 Erythrocyte distribution width (RBC) [Ratio] 20.3 % High 11.5-15.0 [facility] Comment on above: Order Comment: Speci men Type: BLOOD SPECIMENOrdering Facility: [facility] Address: [address] [place] [address] Performed By: #### 5 8410-2 ####[facility] LABCLIA [id number] [place] [address] [place] Hematocrit (Bld) [Volume fraction] 26.1 % Low 36.0-46.0 [facility] Comment on above: Order Comment: Speci men Type: BLOOD SPECIMENOrdering Facility: [facility] Address: [address] [place] [address] Performed By: #### 5 8410-2 ####[facility] LABCLIA [id number] [place] [address] [place] Hemoglobin (Bld) [Mass/Vol] 7.9 g/dL Low 11.5-15.5 [facility] Comment on above: Order Comment: Speci men Type: BLOOD SPECIMENOrdering Facility: [facility] Address: [address] [place] [address] Performed By: #### 5 8410-2 ####[facility] LABIA [id number] [place] [address] [place] [facility] MCH (RBC) [Entitic mass] 27.0 pg Normal 26.0-34.0 [facility] Comment on above: Order Comment: Speci men Type: BLOOD SPECIMENOrdering Facility: [facility] Address: [address] [place] [address] Performed By: #### 5 8410-2 ####[facility] LABIA [id number] [place] [address] [place] MCHC (RBC) [Mass/Vol] 30.3 g/dL Low 30.5-36.0 [facility] Comment on above: Order Comment: Speci men Type: BLOOD SPECIMENOrdering Facility: [facility] Address: [address] [place] [address] Performed By: #### 5 8410-2 ####[facility] LABIA [id number] [place] [address] [place] MCV (RBC) [Entitic vol] 89.1 fL Normal 80.0-100.0 [facility] Comment on above: Order Comment: Speci men Type: BLOOD SPECIMENOrdering Facility: [facility] Address: [address] [place] [address] Performed By: #### 5 8410-2 ####[facility] LABCLIA [id number] [place] [address] [place] Nucleated RBC (Bld) [#/Vol] 10*3/uL Normal <0.01 [facility] Comment on above: Order Comment: Speci men Type: BLOOD SPECIMENOrdering Facility: [facility] Address: [address] [place] [address] Performed By: #### 5 8410-2 ####[facility] LABCLIA [id number] [address] [place] [address] [place] Platelet mean volume (Bld) [Entitic vol] 9.8 fL Normal 9.0-12.7 [facility] Comment on above: Order Comment: Speci men Type: BLOOD SPECIMENOrdering Facility: [facility] Address: [address] [place] [address] Performed By: #### 5 8410-2 ####[facility] LABIA [id number] [place] [address] [place] Platelets (Bld) [#/Vol] 287 10*3/uL Normal 150-400 [facility] Comment on above: Order Comment: Speci men Type: BLOOD SPECIMENOrdering Facility: [facility] Address: [address] [place] [address] Performed By: #### 5 8410-2 ####[facility] LABIA [id number] [address], [place] [address] [place] RBC (Bld) [#/Vol] 2.93 10*6/uL Low 3.90-5.20 [facility] Comment on above: Order Comment: Speci men Type: BLOOD SPECIMENOrdering Facility: [facility] Address: [address] [place] [address] Performed By: #### 5 8410-2 ####[facility] LABIA [id number] [place] [address] [place] WBC (Bld) [#/Vol] 8.64 10*3/uL Normal 3.70-11.00 [facility] Comment on above: Order Comment: Speci men Type: BLOOD SPECIMENOrdering Facility: [facility] Address: [address] [place] [address] Performed By: #### 5 8410-2 ####[facility] LABIA [id number] [address], [facility]95 [place] Erythrocyte distribution width (RBC) [Ratio] 21.2 % High 11.5-15.0 [facility] Comment on above: Order Comment: Speci men Type: BLOOD SPECIMENOrdering Facility: [facility] Address: [address] [place] [address] Performed By: #### 5 8410-2 ####[facility] LABIA [id number] [place] [address] [place] Hematocrit (Bld) [Volume fraction] 22.2 % Low 36.0-46.0 [facility] Comment on above: Order Comment: Speci men Type: BLOOD SPECIMENOrdering Facility: [facility] Address: [address] [place] [address] Performed By: #### 5 8410-2 ####[facility] LABIA [id number] [place] [address] [place] Hemoglobin (Bld) [Mass/Vol] 6.9 g/dL Low 11.5-15.5 [facility] Comment on above: Order Comment: Speci men Type: BLOOD SPECIMENOrdering Facility: [facility] Address: [address] [place] [address] Performed By: #### 5 8410-2 ####[facility] LABIA [id number] [place] [address] [place] MCH (RBC) [Entitic mass] 27.0 pg Normal 26.0-34.0 [facility] Comment on above: Order Comment: Speci men Type: BLOOD SPECIMENOrdering Facility: [facility] Address: [address] [place] [address] Performed By: #### 5 8410-2 ####[facility] LABIA [id number] [place] [address] [place] MCHC (RBC) [Mass/Vol] 31.1 g/dL Normal 30.5-36.0 [facility] Comment on above: Order Comment: Speci men Type: BLOOD SPECIMENOrdering Facility: [facility] Address: [address] [place] [address] Performed By: #### 5 8410-2 ####[facility] LABCLIA [id number] [place] [address] [place] MCV (RBC) [Entitic vol] 86.7 fL Normal 80.0-100.0 [facility] Comment on above: Order Comment: Speci men Type: BLOOD SPECIMENOrdering Facility: [facility] Address: [address] [place] [address] Performed By: #### 5 8410-2 ####[facility] LABIA [id number] [place] [address] [place] Nucleated RBC (Bld) [#/Vol] 10*3/uL Normal <0.01 [facility] Comment on above: Order Comment: Speci men Type: BLOOD SPECIMENOrdering Facility: [facility] Address: [address] [place] [address] Performed By: #### 5 8410-2 ####[facility] LABIA [id number] [place] [address] [place] Platelet mean volume (Bld) [Entitic vol] 9.5 fL Normal 9.0-12.7 [facility] Comment on above: Order Comment: Speci men Type: BLOOD SPECIMENOrdering Facility: [facility] Address: [address] [place] [address] Performed By: #### 5 8410-2 ####[facility] LABIA [id number] [place] [address] [place] Platelets (Bld) [#/Vol] 284 10*3/uL Normal 150-400 [facility] Comment on above: Order Comment: Speci men Type: BLOOD SPECIMENOrdering Facility: [facility] Address: [address] [place] [address] Performed By: #### 5 8410-2 ####[facility] LABCLIA [id number] [place] [address] [place] RBC (Bld) [#/Vol] 2.56 10*6/uL Low 3.90-5.20 [facility] Comment on above: Order Comment: Speci men Type: BLOOD SPECIMENOrdering Facility: [facility] Address: [address] [place] [address] Performed By: #### 5 8410-2 ####[facility] LABCLIA [id number] [place] [address] [place] WBC (Bld) [#/Vol] 7.45 10*3/uL Normal 3.70-11.00 [facility] Comment on above: Order Comment: Speci men Type: BLOOD SPECIMENOrdering Facility: [facility] Address: [address] [place] [address] Performed By: #### 5 8410-2 ####[facility] LABIA [id number] [place] [address] [place] Comprehensive metabolic 2000 panelon 12-18-2024 Albumin [Mass/Vol] 2.3 g/dL Low 3.9-4.9 [facility] Comment on above: Order Comment: Speci men Type: BLOOD SPECIMENOrdering Facility: [facility] Address: [address] [place] [address] Performed By: #### 2 4323-8, 82624-7, 2777-1, 257-8 ####[facility] LABIA [id number] [place] [address] [place] ALP [Catalytic activity/Vol] 71 U/L Normal 34-123 [facility] Comment on above: Order Comment: Speci men Type: BLOOD SPECIMENOrdering Facility: [facility] Address: [address] [place] [address] Performed By: #### 2 4323-8, 20673-7, 2777-1, 2571-8 ####[facility] LABCLIA [id number] [place] [address] [place] ALT [Catalytic activity/Vol] 9 U/L Normal 7-38 [facility] Comment on above: Order Comment: Speci men Type: BLOOD SPECIMENOrdering Facility: [facility] Address: [address] [place] [address] Performed By: #### 2 4323-8, 81670-3, 277-1, 2570-8 ####[facility] LABCLIA [id number] [place] [address] [place] Anion gap [Moles/Vol] 10 mmol/L Normal 8-15 [facility] Comment on above: Order Comment: Speci men Type: BLOOD SPECIMENOrdering Facility: [facility] Address: [address] [place] [address] Performed By: #### 2 4323-8, 46989-0, 2776-1, 2570-8 ####[facility] LABCLIA [id number] [place] [address] [place] AST [Catalytic activity/Vol] 9 U/L Low 13-35 [facility] Comment on above: Order Comment: Speci men Type: BLOOD SPECIMENOrdering Facility: [facility] Address: [address] [place] [address] Performed By: #### 2 4323-8, 50002-4, 277-1, 257-8 ####[facility] LABIA [id number] [place] [id number] [place] Bilirubin [Mass/Vol] 0.2 mg/dL Normal 0.2-1.3 [facility] Comment on above: Order Comment: Speci men Type: BLOOD SPECIMENOrdering Facility: [facility] Address: [address] [place] [address] Performed By: #### 2 4323-8, 00220-2, 277-1, 257-8 ####[facility] LABCLIA [id number] [place] [id number] [place] Calcium [Mass/Vol] 8.0 mg/dL Low 8.5-10.2 [facility] Comment on above: Order Comment: Speci men Type: BLOOD SPECIMENOrdering Facility: [facility] Address: [address] [place] [address] Performed By: #### 2 4323-8, 95547-7, 277-1, 2570-8 ####[facility] LABCLIA [id number] [place] [address] [place] Chloride [Moles/Vol] 106 mmol/L Normal 98-107 [facility] Comment on above: Order Comment: Speci men Type: BLOOD SPECIMENOrdering Facility: [facility] Address: [address] [place] [address] Performed By: #### 2 4323-8, 01861-8, 277-1, 8 ####[facility] LABCLIA [id number] [place] [address] [place] CO2 [Moles/Vol] 22 mmol/L Normal 22-30 [facility] Comment on above: Order Comment: Speci men Type: BLOOD SPECIMENOrdering Facility: [facility] Address: [address] [place] [address] Performed By: #### 2 4323-8, 72567-7, 277-1, 257-8 ####[facility] LABCLIA [id number] [place] [id number] [place] Creatinine [Mass/Vol] 0.53 mg/dL Low 0.58-0.96 [facility] Comment on above: Order Comment: Speci men Type: BLOOD SPECIMENOrdering Facility: [facility] Address: [address] [place] [address] Performed By: #### 2 4323-8, 67706-3, 277-1, 257-8 ####[facility] LABCLIA [id number] [place] AVENUEDESK [id number] Creatinine and Glomerular filtration rate.predicted panel (S/P/Bld) 119 mL/min/1.73m??? Normal >=60 [facility] Comment on above: Order Comment: Dora finch Type: BLOOD SPECIMENOrdering Facility: [facility] Address: [address] [place] [address] Result Comment: Zeny mated Glomerular Filtration Rate [...] actual GFR. Performed By: #### 2 4323-8, 87834-9, 2776-, 2571-01 ####[facility] LABCLIA [id number] [address] [place] Glucose [Mass/Vol] 115 mg/dL High 74-99 [facility] Comment on above: Order Comment: Dora finch Type: BLOOD SPECIMENOrdering Facility: [facility] Address: [address] [place] [address] Result Comment: The [place] Diabetes Association (ADA) provides guidance for cutoff [...] Standards of Medical Care in Diabetes 2016, [place] Diabetes Association. Diabetes Care. 2016.39(Suppl 1). Performed By: #### 2 4323-8, 71409-3, 2776-, 2570-8 ####[facility] LABCLIA [id number] [place] [id number] [place] Potassium [Moles/Vol] 3.3 mmol/L Low 3.7-5.1 [facility] Comment on above: Order Comment: Speci men Type: BLOOD SPECIMENOrdering Facility: [facility] Address: [address] [place] [address] Performed By: #### 2 4323-8, 05095-4, 2776-1, 8 ####[facility] LABCLIA [id number] [facility] [place] [id number] [place] Protein [Mass/Vol] 5.1 g/dL Low 6.3-8.0 [facility] Comment on above: Order Comment: Speci men Type: BLOOD SPECIMENOrdering Facility: [facility] Address: [address] [place] [address] Performed By: #### 2 4323-8, 91331-6, 2776-06, 8 ####[facility] LABCLIA [id number] [place] [id number] [place] Sodium [Moles/Vol] 138 mmol/L Normal 136-144 [facility] Comment on above: Order Comment: Speci men Type: BLOOD SPECIMENOrdering Facility: [facility] Address: [address] [place] [address] Performed By: #### 2 4323-8, 33495-7, 2776-06, 8 ####[facility] LABCLIA [id number] [place] [id number] [place] Urea nitrogen [Mass/Vol] 8 mg/dL Normal 7-21 [facility] Comment on above: Order Comment: Speci men Type: BLOOD SPECIMENOrdering Facility: [facility] Address: [address] [place] [address] Performed By: #### 2 4323-8, 76826-1, 2776-1, 2570-8 ####[facility] LABCLIA [id number] [facility] [id number] [place] [address] [place] Magnesium SerPl-mCncon 12-18 Magnesium [Mass/Vol] 1.8 mg/dL Normal 1.7-2.3 [facility] Comment on above: Order Comment: Speci men Type: BLOOD SPECIMENOrdering Facility: [facility] Address: [address] [place] [address] Performed By: #### 2 4323-8, 66144-7, 2777-1, 257-8 ####[facility] LABCLIA [id number] [place] [address] [place] Phosphate SerPl-mCncon 12-18 Phosphate [Mass/Vol] 3.8 mg/dL Normal 2.7-4.8 [facility] Comment on above: Order Comment: Speci men Type: BLOOD SPECIMENOrdering Facility: [facility] Address: [address] [place] [address] Performed By: #### 2 4323-8, 79817-3, 2777-1, 257-8 ####[facility] LABCLIA [id number] [place] [address] [place] TYPE + SCREENon 12-18-2024 ABO O Normal [facility] Comment on above: Order Comment: Speci men Type: BLOOD SPECIMENOrdering Facility: [facility] Address: [address] [place] [address] Performed By: #### T SCR ####[facility] BLOOD BANKCLIA [id number] [place] [address] [place] Rh Nom (Bld) Positive Normal [facility] Comment on above: Order Comment: Speci men Type: BLOOD SPECIMENOrdering Facility: [facility] Address: [address] [place] [address] Performed By: #### T SCR ####[facility] B[facility]OD BANKCLIA [id number] [place] [address] [place] TYPE AND SCREEN EXPIRATION 12/21/2024 23:59 Normal [facility] Comment on above: Order Comment: Speci men Type: BLOOD SPECIMENOrdering Facility: [facility] Address: [address] [place] [address] Performed By: #### T SCR ####[facility] BLOOD [facility] [id number] [place] [address] [place] Trigl SerPl-mCncon Triglyceride [Mass/Vol] 81 mg/dL Normal <150 [facility] Comment on above: Order Comment: Speci men Type: BLOOD SPECIMENOrdering Facility: [facility] Address: [address] [place] [address] Result Comment: <150 mg/dL, Normal 150-199 mg/dL, Borderline high 200-499 mg/dL, High>499 mg/dL, Very highReference:1. National Cholesterol Education Program ATP III Guideline At-A-Glance Quick Desk Reference: National Heart, Lung, and Blood [employer] National Institutes of Health. 2001: NIH Publication No. 01-3305. Performed By: #### 2 4323-8, 47819-9, 2777-1, 2571-8 ####[facility] [id number] [place] [phone] [place] Triglyceride [Mass/Vol]on FASTING TIME 12 hrs Normal [facility] Comment on above: Order Comment: Speci men Type: BLOOD SPECIMENOrdering Facility: [facility] Address: [address] [place] [address] Performed By: #### 2 4323-8, 92958-7, 2777-1, 2571-8 ####[facility] [id number] [place] [id number] [place] Basic metabolic 2000 panelon 12-17-2024 Anion gap [Moles/Vol] 9 mmol/L Normal 8-15 [facility] Comment on above: Order Comment: Speci men Type: BLOOD SPECIMENOrdering Facility: [facility] Address: [address] [place] [address] Performed By: #### 2 4321-2 ####[facility] LABCLIA [id number] [place] [address] [place] Calcium [Mass/Vol] 8.0 mg/dL Low 8.5-10.2 [facility] Comment on above: Order Comment: Speci men Type: BLOOD SPECIMENOrdering Facility: [facility] Address: [address] [place] [address] Performed By: #### 2 4321-2 ####[facility] LABCLIA [id number] [facility] [place] [address] [place] Chloride [Moles/Vol] 104 mmol/L Normal 98-107 [facility] Comment on above: Order Comment: Speci men Type: BLOOD SPECIMENOrdering Facility: [facility] Address: [address] [place] [address] Performed By: #### 2 4321-2 ####[facility] LABCLIA [id number] [place] [address] [place] CO2 [Moles/Vol] 23 mmol/L Normal 22-30 [facility] Comment on above: Order Comment: Speci men Type: BLOOD SPECIMENOrdering Facility: [facility] Address: [address] [place] [address] Performed By: #### 2 4321-2 ####[facility] LABCLIA [id number] [place] [phone] [place] Creatinine [Mass/Vol] 0.54 mg/dL Low 0.58-0.96 [facility] Comment on above: Order Comment: Speci men Type: BLOOD SPECIMENOrdering Facility: [facility] Address: [address] [place] [address] Performed By: #### 2 4321-2 ####[facility] LABCLIA [id number] [place] [id number] [place] Creatinine and Glomerular filtration rate.predicted panel (S/P/Bld) 119 mL/min/1.73m??? Normal >=60 [facility] Comment on above: Order Comment: Dora finch Type: BLOOD SPECIMENOrdering Facility: [facility] Address: [address] [place] [address] Result Comment: Zeny mated Glomerular Filtration Rate [...] actual GFR. Performed By: #### 2 4321-2 ####[facility] [id number] [place] [address] [place] Glucose [Mass/Vol] 152 mg/dL High 74-99 [facility] Comment on above: Order Comment: Dora finch Type: BLOOD SPECIMENOrdering Facility: [facility] Address: [address] [place] [address] Result Comment: The [place] Diabetes Association (ADA) provides guidance for cutoff [...] Standards of Medical Care in Diabetes 2016, [place] Diabetes Association. Diabetes Care. 2016.39(Suppl 1). Performed By: #### 2 4321-2 ####[facility] [id number] [place] [id number] [place] Potassium [Moles/Vol] 3.7 mmol/L Normal 3.7-5.1 [facility] Comment on above: Order Comment: Speci men Type: BLOOD SPECIMENOrdering Facility: [facility] Address: [address] [place] [address] Performed By: #### 2 4321-2 ####[facility] LABCLIA [id number] [address] [address] [place] Sodium [Moles/Vol] 136 mmol/L Normal 136-144 [facility] Comment on above: Order Comment: Speci men Type: BLOOD SPECIMENOrdering Facility: [facility] Address: [address] [place] [address] Performed By: #### 2 4321-2 ####[facility] LABCLIA [id number] [place] [address] [place] Urea nitrogen [Mass/Vol] 12 mg/dL Normal 7-21 [facility] Comment on above: Order Comment: Speci men Type: BLOOD SPECIMENOrdering Facility: [facility] Address: [address] [place] [address] Performed By: #### 2 4321-2 ####[facility] LABIA [id number] [place] [id number] [place] CASE MANAGEMon 12-17-2024 CASE MANAGEM Normal [facility] CBC W Auto Differential pane l (Bld)on 12-17-2024 Basophils (Bld) [#/Vol] 10*3/uL Normal <0.11 [facility] Comment on above: Order Comment: Speci men Type: BLOOD SPECIMENOrdering Facility: [facility] Address: [address] [place] [address] Performed By: #### 5 7021-8 ####[facility] LABCLIA [id number] [place] [id number] [place] Basophils/100 WBC (Bld) 0.2 % Normal [facility] Comment on above: Order Comment: Speci men Type: BLOOD SPECIMENOrdering Facility: [facility] Address: [address] [place] [address] Performed By: #### 5 7021-8 ####[facility] LABCLIA [id number] [address], [place] [address] [place] Differential cell count method Nom (Bld) Auto Normal [facility] Comment on above: Order Comment: Speci men Type: BLOOD SPECIMENOrdering Facility: [facility] Address: [address] [place] [address] Performed By: #### 5 7021-8 ####[facility] LABCLIA [id number] [address], [place] [address] [place] Eosinophils (Bld) [#/Vol] 0.29 10*3/uL Normal <0.46 [facility] Comment on above: Order Comment: Speci men Type: BLOOD SPECIMENOrdering Facility: [facility] Address: [address] [place] [address] Performed By: #### 5 7021-8 ####[facility] LABCLIA [id number] [place] [address] [place] Eosinophils/100 WBC (Bld) 3.3 % Normal [facility] Comment on above: Order Comment: Speci men Type: BLOOD SPECIMENOrdering Facility: [facility] Address: [address] [place] [address] Performed By: #### 5 7021-8 ####[facility] LABCLIA [id number] [place] [address] [place] Erythrocyte distribution width (RBC) [Ratio] 21.2 % High 11.5-15.0 [facility] Comment on above: Order Comment: Speci men Type: BLOOD SPECIMENOrdering Facility: [facility] Address: [address] [place] [address] Performed By: #### 5 7021-8 ####[facility] LABCLIA [id number] [place] [id number] [place] Hematocrit (Bld) [Volume fraction] 24.6 % Low 36.0-46.0 [facility] Comment on above: Order Comment: Speci men Type: BLOOD SPECIMENOrdering Facility: [facility] Address: [address] [place] [address] Performed By: #### 5 7021-8 ####[facility] LABCLIA [id number] [place] [address] [place] Hemoglobin (Bld) [Mass/Vol] 7.6 g/dL Low 11.5-15.5 [facility] Comment on above: Order Comment: Speci men Type: BLOOD SPECIMENOrdering Facility: [facility] Address: [address] [place] [address] Performed By: #### 5 7021-8 ####[facility] LABCLIA [id number] [place] [address] [place] Immature granulocytes (Bld) [#/Vol] 0.04 10*3/uL Normal <0.10 [facility] Comment on above: Order Comment: Speci men Type: BLOOD SPECIMENOrdering Facility: [facility] Address: [address] [place] [address] Performed By: #### 5 7021-8 ####[facility] LABIA [id number] [place] [address] [place] Immature granulocytes/100 WBC (Bld) 0.5 % Normal [facility] Comment on above: Order Comment: Speci men Type: BLOOD SPECIMENOrdering Facility: [facility] Address: [address] [place] [address] Performed By: #### 5 7021-8 ####[facility] LABCLIA [id number] [place] [address] [place] Lymphocytes (Bld) [#/Vol] 1.04 10*3/uL Normal 1.00-4.00 [facility] Comment on above: Order Comment: Speci men Type: BLOOD SPECIMENOrdering Facility: [facility] Address: [address] [place] [address] Performed By: #### 5 7021-8 ####[facility] LABIA [id number] [place] [address] [place] Lymphocytes/100 WBC (Bld) 11.7 % Normal [facility] Comment on above: Order Comment: Speci men Type: BLOOD SPECIMENOrdering Facility: [facility] Address: [address] [place] [address] Performed By: #### 5 7021-8 ####[facility] LABIA [id number] [place] [address] [place] MCH (RBC) [Entitic mass] 26.5 pg Normal 26.0-34.0 [facility] Comment on above: Order Comment: Speci men Type: BLOOD SPECIMENOrdering Facility: [facility] Address: [address] [place] [address] Performed By: #### 5 7021-8 ####[facility] LABIA [id number] [place] [address] [place] MCHC (RBC) [Mass/Vol] 30.9 g/dL Normal 30.5-36.0 [facility] Comment on above: Order Comment: Speci men Type: BLOOD SPECIMENOrdering Facility: [facility] Address: [address] [place] [address] Performed By: #### 5 7021-8 ####[facility] LABIA [id number] [place] [address] [place] MCV (RBC) [Entitic vol] 85.7 fL Normal 80.0-100.0 [facility] Comment on above: Order Comment: Speci men Type: BLOOD SPECIMENOrdering Facility: [facility] Address: [address] [place] [address] Performed By: #### 5 7021-8 ####[facility] LABIA [id number] [place] [address] [place] Monocytes (Bld) [#/Vol] 0.61 10*3/uL Normal <0.87 [facility] Comment on above: Order Comment: Speci men Type: BLOOD SPECIMENOrdering Facility: [facility] Address: [address] [place] [address] Performed By: #### 5 7021-8 ####[facility] LABCLIA [id number] [facility] [place] [place] [address] [place] Monocytes/100 WBC (Bld) 6.9 % Normal [facility] Comment on above: Order Comment: Speci men Type: BLOOD SPECIMENOrdering Facility: [facility] Address: [address] [place] [address] Performed By: #### 5 7021-8 ####[facility] LABCLIA [id number] [place] [address] [place] Neutrophils (Bld) [#/Vol] 6.88 10*3/uL Normal 1.45-7.50 [facility] Comment on above: Order Comment: Speci men Type: BLOOD SPECIMENOrdering Facility: [facility] Address: [address] [place] [address] Performed By: #### 5 7021-8 ####[facility] LABCLIA [id number] [place] [address] [place] Neutrophils/100 WBC (Bld) 77.4 % Normal [facility] Comment on above: Order Comment: Speci men Type: BLOOD SPECIMENOrdering Facility: [facility] Address: [address] [place] [address] Performed By: #### 5 7021-8 ####[facility] LABCLIA [id number] [place] [address] [place] Nucleated RBC (Bld) [#/Vol] 10*3/uL Normal <0.01 [facility] Comment on above: Order Comment: Speci men Type: BLOOD SPECIMENOrdering Facility: [facility] Address: [address] [place] [address] Performed By: #### 5 7021-8 ####[facility] LABCLIA [id number] [address] [place] [address] [place] Nucleated RBC/100 WBC (Bld) [Ratio] 0.0 /100 WBC Normal [facility] Comment on above: Order Comment: Speci men Type: BLOOD SPECIMENOrdering Facility: [facility] Address: [address] [place] [address] Performed By: #### 5 7021-8 ####[facility] LABCLIA [id number] [address] [place] [address] [place] Platelet mean volume (Bld) [Entitic vol] 9.5 fL Normal 9.0-12.7 [facility] Comment on above: Order Comment: Speci men Type: BLOOD SPECIMENOrdering Facility: [facility] Address: [address] [place] [address] Performed By: #### 5 7021-8 ####[facility] LABIA [id number] [address], [place] [address] [place] Platelets (Bld) [#/Vol] 245 10*3/uL Normal 150-400 [facility] Comment on above: Order Comment: Speci men Type: BLOOD SPECIMENOrdering Facility: [facility] Address: [address] [place] [address] Performed By: #### 5 7021-8 ####[facility] LABCLIA [id number] [address] [place] [address] [place] RBC (Bld) [#/Vol] 2.87 10*6/uL Low 3.90-5.20 [facility] Comment on above: Order Comment: Speci men Type: BLOOD SPECIMENOrdering Facility: [facility] Address: [address] [place] [address] Performed By: #### 5 7021-8 ####[facility] LABIA [id number] [address], [facility] [place] WBC (Bld) [#/Vol] 8.88 10*3/uL Normal 3.70-11.00 [facility] Comment on above: Order Comment: Speci men Type: BLOOD SPECIMENOrdering Facility: [facility] Address: [address] [place], [place] [address] Performed By: #### 5 7021-8 ####[facility] LABCLIA [id number] [place] [id number] [place] CONSULT PROGon 12-17-2024 CONSULT PROG Normal [facility] CONSULT PROG Normal [facility] CRP SerPl-mCncon 12-17-2024 CRP [Mass/Vol] 10.3 mg/dL High <0.9 [facility] Comment on above: Order Comment: Speci men Type: BLOOD SPECIMENOrdering Facility: [facility] Address: [address] [place] [address] Performed By: #### 1 988-5 ####[facility] LABCLIA [id number] [place] [id number] [place] Comprehensive metabolic 2000 panelon 12-17-2024 Albumin [Mass/Vol] 2.6 g/dL Low 3.9-4.9 [facility] Comment on above: Order Comment: Speci men Type: BLOOD SPECIMENOrdering Facility: [facility] Address: [address] [place] [address] Performed By: #### 2 4323-8, 01677-7, 2777-1 ####[facility] LABCLIA [id number] [place] [id number] [place] ALP [Catalytic activity/Vol] 80 U/L Normal 34-123 [facility] Comment on above: Order Comment: Speci men Type: BLOOD SPECIMENOrdering Facility: [facility] Address: [address] [place] [address] Performed By: #### 2 4323-8, , 2777-1 ####[facility] LABCLIA [id number] [address] [place] [address] [place] ALT [Catalytic activity/Vol] 14 U/L Normal 7-38 [facility] Comment on above: Order Comment: Speci men Type: BLOOD SPECIMENOrdering Facility: [facility] Address: [address] [place] [address] Performed By: #### 2 4323-8, 82171-1, 2776-06 ####[facility]CLIA [id number] [address] [place] [address] [place] Anion gap [Moles/Vol] 12 mmol/L Normal 8-15 [facility] Comment on above: Order Comment: Speci men Type: BLOOD SPECIMENOrdering Facility: [facility] Address: [address] [place] [address] Performed By: #### 2 4323-8, , 2776-06 ####[facility]CLIA [id number] [place] [id number] [place] AST [Catalytic activity/Vol] 7 U/L Low 13-35 [facility] Comment on above: Order Comment: Speci men Type: BLOOD SPECIMENOrdering Facility: [facility] Address: [address] [place] [address] Performed By: #### 2 4323-8, , 2776-06 ####[facility]CLIA [id number] [address], [facility] [place] [place] Bilirubin [Mass/Vol] 0.3 mg/dL Normal 0.2-1.3 [facility] Comment on above: Order Comment: Speci men Type: BLOOD SPECIMENOrdering Facility: [facility] Address: [address] [place] [address] Performed By: #### 2 4323-8, , 2776-06 ####[facility] LABCLIA [id number] [address] [place] [address] [place] Calcium [Mass/Vol] 8.5 mg/dL Normal 8.5-10.2 [facility] Comment on above: Order Comment: Speci men Type: BLOOD SPECIMENOrdering Facility: [facility] Address: [address] [place], [place] [address] Performed By: #### 2 4323-8, , 2776-06 ####[facility] LABCLIA [id number] [facility] [address] [place] [address] [place] Chloride [Moles/Vol] 102 mmol/L Normal 98-107 [facility] Comment on above: Order Comment: Speci men Type: BLOOD SPECIMENOrdering Facility: [facility] Address: [address] [place] [address] Performed By: #### 2 4323-8, , 2776-06 ####[facility] LABCLIA [id number] [facility] [place] [id number] [place] CO2 [Moles/Vol] 23 mmol/L Normal 22-30 [facility] Comment on above: Order Comment: Speci men Type: BLOOD SPECIMENOrdering Facility: [facility] Address: [address] [place] [address] Performed By: #### 2 4323-8, , 2776-06 ####[facility] LABCLIA [id number] [facility] [address], [facility]95 [place] Creatinine [Mass/Vol] 0.58 mg/dL Normal 0.58-0.96 [facility] Comment on above: Order Comment: Speci men Type: BLOOD SPECIMENOrdering Facility: [facility] Address: [address] [place], [place] [address] Performed By: #### 2 4323-8, , 2776-06 ####[facility] LABCLIA [id number] [facility] [address] [place] [address] [place] Creatinine and Glomerular filtration rate.predicted panel (S/P/Bld) 117 mL/min/1.73m??? Normal >=60 [facility] Comment on above: Order Comment: Dora finch Type: BLOOD SPECIMENOrdering Facility: [facility] Address: [address] [place] [address] Result Comment: Zeny mated Glomerular Filtration Rate [...] actual GFR. Performed By: #### 2 4323-8, 16153-2, 2776- ####[facility] [id number] [place] [id number] [place] Glucose [Mass/Vol] 131 mg/dL High 74-99 [facility] Comment on above: Order Comment: Dora finch Type: BLOOD SPECIMENOrdering Facility: [facility] Address: [address] [place] [address] Result Comment: The [place] Diabetes Association (ADA) provides guidance for cutoff [...] Standards of Medical Care in Diabetes 2016, [place] Diabetes Association. Diabetes Care. 2016.39(Suppl 1). Performed By: #### 2 4323-8, 11034-7, 2776- ####[facility] LABIA [id number] [address] [address] [place] Potassium [Moles/Vol] 2.9 mmol/L Low 3.7-5.1 [facility] Comment on above: Order Comment: Speci men Type: BLOOD SPECIMENOrdering Facility: [facility] Address: [address] [place], [place] [address] Performed By: #### 2 4323-8, , 2776-06 ####[facility] LABCLIA [id number] [address] [address] [place] Protein [Mass/Vol] 5.5 g/dL Low 6.3-8.0 [facility] Comment on above: Order Comment: Speci men Type: BLOOD SPECIMENOrdering Facility: [facility] Address: [address] [place], [place] [address] Performed By: #### 2 4323-8, , 2776-06 ####[facility] LABCLIA [id number] [address] [address] [place] Sodium [Moles/Vol] 137 mmol/L Normal 136-144 [facility] Comment on above: Order Comment: Speci men Type: BLOOD SPECIMENOrdering Facility: [facility] Address: [address] [place], [place] [address] Performed By: #### 2 4323-8, , 2776-06 ####[facility] LABCLIA [id number] [address] [address] [place] Urea nitrogen [Mass/Vol] 11 mg/dL Normal 7-21 [facility] Comment on above: Order Comment: Speci men Type: BLOOD SPECIMENOrdering Facility: [facility] Address: [address] [place], [place] [address] Performed By: #### 2 4323-8, , 2776-06 ####[facility] LABCLIA [id number] [address] [address] [place] Magnesium SerPl-mCncon 12-17 Magnesium [Mass/Vol] 1.8 mg/dL Normal 1.7-2.3 [facility] Comment on above: Order Comment: Speci men Type: BLOOD SPECIMENOrdering Facility: [facility] Address: [address] [place] [address] Performed By: #### 2 4323-8, 88860-5, 7- ####[facility] LABCLIA [id number] [address] [place] [address] [place] Phosphate SerPl-mCncon 12-17 Phosphate [Mass/Vol] 3.1 mg/dL Normal 2.7-4.8 [facility] Comment on above: Order Comment: Speci men Type: BLOOD SPECIMENOrdering Facility: [facility] Address: [address] [place] [address] Performed By: #### 2 4323-8, , 2776-06 ####[facility] LABCLIA [id number] [address], [place] [address] [place] CBC W Auto Differential pane l (Bld)on 12-16-2024 Basophils (Bld) [#/Vol] 10*3/uL Normal <0.11 [facility] Comment on above: Order Comment: Speci men Type: BLOOD SPECIMENOrdering Facility: [facility] Address: [address] [place] [address] Performed By: #### 5 7021-8 ####[facility] LABCLIA [id number] [address], [facility]95 [place] Basophils/100 WBC (Bld) 0.2 % Normal [facility] Comment on above: Order Comment: Speci men Type: BLOOD SPECIMENOrdering Facility: [facility] Address: [address] [place] [address] Performed By: #### 5 7021-8 ####[facility] LABCLIA [id number] [address], [facility]95 [place] Differential cell count method Nom (Bld) Auto Normal [facility] Comment on above: Order Comment: Speci men Type: BLOOD SPECIMENOrdering Facility: [facility] Address: [address] [place] [address] Performed By: #### 5 7021-8 ####[facility] LABCLIA [id number] [address], [place] [address] [place] Eosinophils (Bld) [#/Vol] 0.32 10*3/uL Normal <0.46 [facility] Comment on above: Order Comment: Speci men Type: BLOOD SPECIMENOrdering Facility: [facility] Address: [address] [place] [address] Performed By: #### 5 7021-8 ####[facility] LABCLIA [id number] [address], [place] [address] [place] Eosinophils/100 WBC (Bld) 3.7 % Normal [facility] Comment on above: Order Comment: Speci men Type: BLOOD SPECIMENOrdering Facility: [facility] Address: [address] [place] [address] Performed By: #### 5 7021-8 ####[facility] LABCLIA [id number] [address], [facility]95 [place] Erythrocyte distribution width (RBC) [Ratio] 21.1 % High 11.5-15.0 [facility] Comment on above: Order Comment: Speci men Type: BLOOD SPECIMENOrdering Facility: [facility] Address: [address] [place] [address] Performed By: #### 5 7021-8 ####[facility] LABCLIA [id number] [address], [facility]95 [place] Hematocrit (Bld) [Volume fraction] 24.0 % Low 36.0-46.0 [facility] Comment on above: Order Comment: Speci men Type: BLOOD SPECIMENOrdering Facility: [facility] Address: [address] [place] [address] Performed By: #### 5 7021-8 ####[facility] LABCLIA [id number] [address], [facility]95 [place] Hemoglobin (Bld) [Mass/Vol] 7.4 g/dL Low 11.5-15.5 [facility] Comment on above: Order Comment: Speci men Type: BLOOD SPECIMENOrdering Facility: [facility] Address: [address] [place] [address] Performed By: #### 5 7021-8 ####[facility] LABCLIA [id number] [place] [address] [place] Immature granulocytes (Bld) [#/Vol] 0.04 10*3/uL Normal <0.10 [facility] Comment on above: Order Comment: Speci men Type: BLOOD SPECIMENOrdering Facility: [facility] Address: [address] [place] [address] Performed By: #### 5 7021-8 ####[facility] LABCLIA [id number] [place] [address] [place] Immature granulocytes/100 WBC (Bld) 0.5 % Normal [facility] Comment on above: Order Comment: Speci men Type: BLOOD SPECIMENOrdering Facility: [facility] Address: [address] [place] [address] Performed By: #### 5 7021-8 ####[facility] LABCLIA [id number] [place] [address] [place] Lymphocytes (Bld) [#/Vol] 1.03 10*3/uL Normal 1.00-4.00 [facility] Comment on above: Order Comment: Speci men Type: BLOOD SPECIMENOrdering Facility: [facility] Address: [address] [place] [address] Performed By: #### 5 7021-8 ####[facility] LABCLIA [id number] [place] [address] [place] Lymphocytes/100 WBC (Bld) 11.9 % Normal [facility] Comment on above: Order Comment: Speci men Type: BLOOD SPECIMENOrdering Facility: [facility] Address: [address] [place] [address] Performed By: #### 5 7021-8 ####[facility] LABIA [id number] [place] [address] [place] [facility] MCH (RBC) [Entitic mass] 26.9 pg Normal 26.0-34.0 [facility] Comment on above: Order Comment: Speci men Type: BLOOD SPECIMENOrdering Facility: [facility] Address: [address] [place] [address] Performed By: #### 5 7021-8 ####[facility] LABIA [id number] [place] [address] [place] MCHC (RBC) [Mass/Vol] 30.8 g/dL Normal 30.5-36.0 [facility] Comment on above: Order Comment: Speci men Type: BLOOD SPECIMENOrdering Facility: [facility] Address: [address] [place] [address] Performed By: #### 5 7021-8 ####[facility] LABIA [id number] [place] [address] [place] MCV (RBC) [Entitic vol] 87.3 fL Normal 80.0-100.0 [facility] Comment on above: Order Comment: Speci men Type: BLOOD SPECIMENOrdering Facility: [facility] Address: [address] [place] [address] Performed By: #### 5 7021-8 ####[facility] LABIA [id number] [place] [address] [place] Monocytes (Bld) [#/Vol] 0.59 10*3/uL Normal <0.87 [facility] Comment on above: Order Comment: Speci men Type: BLOOD SPECIMENOrdering Facility: [facility] Address: [address] [place] [address] Performed By: #### 5 7021-8 ####[facility] LABCLIA [id number] [place] [id number] [place] Monocytes/100 WBC (Bld) 6.8 % Normal [facility] Comment on above: Order Comment: Speci men Type: BLOOD SPECIMENOrdering Facility: [facility] Address: [address] [place] [address] Performed By: #### 5 7021-8 ####[facility] LABCLIA [id number] [place] [address] [place] Neutrophils (Bld) [#/Vol] 6.65 10*3/uL Normal 1.45-7.50 [facility] Comment on above: Order Comment: Speci men Type: BLOOD SPECIMENOrdering Facility: [facility] Address: [address] [place] [address] Performed By: #### 5 7021-8 ####[facility] LABCLIA [id number] [place] [address] [place] Neutrophils/100 WBC (Bld) 76.9 % Normal [facility] Comment on above: Order Comment: Speci men Type: BLOOD SPECIMENOrdering Facility: [facility] Address: [address] [place] [address] Performed By: #### 5 7021-8 ####[facility] LABIA [id number] [place] [address] [place] Nucleated RBC (Bld) [#/Vol] 10*3/uL Normal <0.01 [facility] Comment on above: Order Comment: Speci men Type: BLOOD SPECIMENOrdering Facility: [facility] Address: [address] [place] [address] Performed By: #### 5 7021-8 ####[facility] LABCLIA [id number] [place] [id number] [place] Nucleated RBC/100 WBC (Bld) [Ratio] 0.0 /100 WBC Normal [facility] Comment on above: Order Comment: Speci men Type: BLOOD SPECIMENOrdering Facility: [facility] Address: [address] [place] [address] Performed By: #### 5 7021-8 ####[facility] LABIA [id number] [place] [address] [place] Platelet mean volume (Bld) [Entitic vol] 10.0 fL Normal 9.0-12.7 [facility] Comment on above: Order Comment: Speci men Type: BLOOD SPECIMENOrdering Facility: [facility] Address: [address] [place] [address] Performed By: #### 5 7021-8 ####[facility] LABIA [id number] [place] [address] [place] Platelets (Bld) [#/Vol] 225 10*3/uL Normal 150-400 [facility] Comment on above: Order Comment: Speci men Type: BLOOD SPECIMENOrdering Facility: [facility] Address: [address] [place] [address] Performed By: #### 5 7021-8 ####[facility] LABIA [id number] [place] [address] [place] RBC (Bld) [#/Vol] 2.75 10*6/uL Low 3.90-5.20 [facility] Comment on above: Order Comment: Speci men Type: BLOOD SPECIMENOrdering Facility: [facility] Address: [address] [place] [address] Performed By: #### 5 7021-8 ####[facility] LABIA [id number] [place] [address] [place] WBC (Bld) [#/Vol] 8.65 10*3/uL Normal 3.70-11.00 [facility] Comment on above: Order Comment: Speci men Type: BLOOD SPECIMENOrdering Facility: [facility] Address: [address] [place] [address] Performed By: #### 5 7021-8 ####[facility] LABCLIA [id number] [address] [address] [place] Comprehensive metabolic 2000 panelon 12-16-2024 Albumin [Mass/Vol] 2.8 g/dL Low 3.9-4.9 [facility] Comment on above: Order Comment: Speci men Type: BLOOD SPECIMENOrdering Facility: [facility] Address: [address] [place] [address] Performed By: #### 2 4323-8, , 2776- ####[facility] LABCLIA [id number] [place] [id number] [place] ALP [Catalytic activity/Vol] 84 U/L Normal 34-123 [facility] Comment on above: Order Comment: Speci men Type: BLOOD SPECIMENOrdering Facility: [facility] Address: [address] [place] [address] Performed By: #### 2 4323-8, , 2776-06 ####[facility] LABCLIA [id number] [place] [id number] [place] ALT [Catalytic activity/Vol] 16 U/L Normal 7-38 [facility] Comment on above: Order Comment: Speci men Type: BLOOD SPECIMENOrdering Facility: [facility] Address: [address] [place] [address] Performed By: #### 2 4323-8, , 2776-06 ####[facility] LABCLIA [id number] [address] [address] [place] Anion gap [Moles/Vol] 12 mmol/L Normal 8-15 [facility] Comment on above: Order Comment: Speci men Type: BLOOD SPECIMENOrdering Facility: [facility] Address: [address] [place] [address] Performed By: #### 2 4323-8, , 2776- ####[facility] LABCLIA [id number] [address] [place] [address] [place] AST [Catalytic activity/Vol] 11 U/L Low 13-35 [facility] Comment on above: Order Comment: Speci men Type: BLOOD SPECIMENOrdering Facility: [facility] Address: [address] [place] [address] Performed By: #### 2 4323-8, , 2776-06 ####[facility] LABCLIA [id number] [address] [place] [address] [place] Bilirubin [Mass/Vol] 0.3 mg/dL Normal 0.2-1.3 [facility] Comment on above: Order Comment: Speci men Type: BLOOD SPECIMENOrdering Facility: [facility] Address: [address] [place] [address] Performed By: #### 2 4323-8, , 2776-06 ####[facility] LABCLIA [id number] [address], [facility]95 [place] Calcium [Mass/Vol] 8.6 mg/dL Normal 8.5-10.2 [facility] Comment on above: Order Comment: Speci men Type: BLOOD SPECIMENOrdering Facility: [facility] Address: [address] [place] [address] Performed By: #### 2 4323-8, , 2776-06 ####[facility] LABCLIA [id number] [place] [id number] [place] Chloride [Moles/Vol] 101 mmol/L Normal 98-107 [facility] Comment on above: Order Comment: Speci men Type: BLOOD SPECIMENOrdering Facility: [facility] Address: [address] [place] [address] Performed By: #### 2 4323-8, , 2776-06 ####[facility] LABCLIA [id number] [address] [address] [place] CO2 [Moles/Vol] 23 mmol/L Normal 22-30 [facility] Comment on above: Order Comment: Speci men Type: BLOOD SPECIMENOrdering Facility: [facility] Address: [address] [place] [address] Performed By: #### 2 4323-8, 19627-4, 2776-06 ####[facility] LABCLIA [id number] [place] [id number] [place] Creatinine [Mass/Vol] 0.64 mg/dL Normal 0.58-0.96 [facility] Comment on above: Order Comment: Speci men Type: BLOOD SPECIMENOrdering Facility: [facility] Address: [address] [place] [address] Performed By: #### 2 4323-8, , 2776-06 ####[facility] LABIA [id number] [place] [address] [place] Creatinine and Glomerular filtration rate.predicted panel (S/P/Bld) 114 mL/min/1.73m??? Normal >=60 [facility] Comment on above: Order Comment: Dora finch Type: BLOOD SPECIMENOrdering Facility: [facility] Address: [address] [place] [address] Result Comment: Zeny mated Glomerular Filtration Rate [...] Performed By: #### 2 4323-8, , 2776-06 ####[facility] LABCLIA [id number] [place] [id number] [place] Glucose [Mass/Vol] 140 mg/dL High 74-99 [facility] Comment on above: Order Comment: Speci men Type: BLOOD SPECIMENOrdering Facility: [facility] Address: [address] [place], [place] [address] Result Comment: The [place] Diabetes Association (ADA) provides guidance for cutoff [...] Standards of Medical Care in Diabetes 2016, [place] [employer]. Diabetes Care. 2016.39(Suppl 1). Performed By: #### 2 4323-8, , 2776-06 ####[facility] LABCLIA [id number] [place] [id number] [place] Potassium [Moles/Vol] 2.8 mmol/L Low 3.7-5.1 [facility] Comment on above: Order Comment: Speci men Type: BLOOD SPECIMENOrdering Facility: [facility] Address: [address] [place], [place] [address] Performed By: #### 2 4323-8, , 2776-06 ####[facility] LABCLIA [id number] [address] [address] [place] Protein [Mass/Vol] 5.7 g/dL Low 6.3-8.0 [facility] Comment on above: Order Comment: Speci men Type: BLOOD SPECIMENOrdering Facility: [facility] Address: [address] [place], [place] [address] Performed By: #### 2 4323-8, , 2776-06 ####[facility] LABCLIA [id number] [address] [address] [place] Sodium [Moles/Vol] 136 mmol/L Normal 136-144 [facility] Comment on above: Order Comment: Speci men Type: BLOOD SPECIMENOrdering Facility: [facility] Address: [address] [place] [address] Performed By: #### 2 4323-8, , 2776-06 ####[facility] LABCLIA [id number] [place] [address] [place] Urea nitrogen [Mass/Vol] 11 mg/dL Normal 7-21 [facility] Comment on above: Order Comment: Speci men Type: BLOOD SPECIMENOrdering Facility: [facility] Address: [address] [place] [address] Performed By: #### 2 4323-8, , 2776-06 ####[facility] LABIA [id number] [place] [id number] [place] Magnesium SerPl-mCncon 12-16 Magnesium [Mass/Vol] 1.9 mg/dL Normal 1.7-2.3 [facility] Comment on above: Order Comment: Speci men Type: BLOOD SPECIMENOrdering Facility: [facility] Address: [address] [place] [address] Performed By: #### 2 4323-8, , 2776-06 ####[facility] [id number] [place] [id number] [place] Phosphate SerPl-mCncon 12-16 Phosphate [Mass/Vol] 2.4 mg/dL Low 2.7-4.8 [facility] Comment on above: Order Comment: Speci men Type: BLOOD SPECIMENOrdering Facility: [facility] Address: [address] [place] [address] Performed By: #### 2 4323-8, , 2776-06 ####[facility] LABIA [id number] [place] [id number] [place] Vancomycin Walton SerPl-mCncon 12-16-2024 Vancomycin random [Mass/Vol] 11.6 ug/mL Normal 10.0-20.0 [facility] Comment on above: Order Comment: Speci men Type: BLOOD SPECIMENOrdering Facility: [facility] Address: [address] [place] [address] Result Comment: Refe rence ranges and high/low indicator flags are provided as general guidelines only. The treating physician must determine appropriate target levels/dosing based on the specific clinical situation. Performed By: #### 4 091-5 ####[facility] LABCLIA [id number] [place] [address] [place] CBC W Auto Differential pane l (Bld)on 12-15-2024 Basophils (Bld) [#/Vol] 0.03 10*3/uL Normal <0.11 [facility] Comment on above: Order Comment: Speci men Type: BLOOD SPECIMENOrdering Facility: [facility] Address: [address] [place] [address] Performed By: #### 5 7021-8 ####[facility] LABCLIA [id number] [place] [address] [place] Basophils/100 WBC (Bld) 0.3 % Normal [facility] Comment on above: Order Comment: Speci men Type: BLOOD SPECIMENOrdering Facility: [facility] Address: [address] [place] [address] Performed By: #### 5 7021-8 ####[facility] LABCLIA [id number] [place] [address] [place] Differential cell count method Nom (Bld) Auto Normal [facility] Comment on above: Order Comment: Speci men Type: BLOOD SPECIMENOrdering Facility: [facility] Address: [address] [place] [address] Performed By: #### 5 7021-8 ####[facility] LABCLIA [id number] [place] [id number] [place] Eosinophils (Bld) [#/Vol] 0.38 10*3/uL Normal <0.46 [facility] Comment on above: Order Comment: Speci men Type: BLOOD SPECIMENOrdering Facility: [facility] Address: [address] [place] [address] Performed By: #### 5 7021-8 ####[facility] LABCLIA [id number] [facility] [place] [address] [place] Eosinophils/100 WBC (Bld) 3.4 % Normal [facility] Comment on above: Order Comment: Speci men Type: BLOOD SPECIMENOrdering Facility: [facility] Address: [address] [place] [address] Performed By: #### 5 7021-8 ####[facility] LABIA [id number] [address], [place] [address] [place] Erythrocyte distribution width (RBC) [Ratio] 21.5 % High 11.5-15.0 [facility] Comment on above: Order Comment: Speci men Type: BLOOD SPECIMENOrdering Facility: [facility] Address: [address] [place] [address] Performed By: #### 5 7021-8 ####[facility] LABIA [id number] [place] [address] [place] Hematocrit (Bld) [Volume fraction] 25.3 % Low 36.0-46.0 [facility] Comment on above: Order Comment: Speci men Type: BLOOD SPECIMENOrdering Facility: [facility] Address: [address] [place] [address] Performed By: #### 5 7021-8 ####[facility]IA [id number] [place] [address] [place] Hemoglobin (Bld) [Mass/Vol] 7.6 g/dL Low 11.5-15.5 [facility] Comment on above: Order Comment: Speci men Type: BLOOD SPECIMENOrdering Facility: [facility] Address: [address] [place] [address] Performed By: #### 5 7021-8 ####[facility] LABCLIA [id number] [place] [address] [place] Immature granulocytes (Bld) [#/Vol] 0.08 10*3/uL Normal <0.10 [facility] Comment on above: Order Comment: Speci men Type: BLOOD SPECIMENOrdering Facility: [facility] Address: [address] [place] [address] Performed By: #### 5 7021-8 ####[facility] LABCLIA [id number] [address] [place] Immature granulocytes/100 WBC (Bld) 0.7 % Normal [facility] Comment on above: Order Comment: Speci men Type: BLOOD SPECIMENOrdering Facility: [facility] Address: [address] [place] [address] Performed By: #### 5 7021-8 ####[facility] LABCLIA [id number] [place] [address] [place] Lymphocytes (Bld) [#/Vol] 1.39 10*3/uL Normal 1.00-4.00 [facility] Comment on above: Order Comment: Speci men Type: BLOOD SPECIMENOrdering Facility: [facility] Address: [address] [place] [address] Performed By: #### 5 7021-8 ####[facility] LABCLIA [id number] [place] [id number] [place] Lymphocytes/100 WBC (Bld) 12.5 % Normal [facility] Comment on above: Order Comment: Speci men Type: BLOOD SPECIMENOrdering Facility: [facility] Address: [address] [place] [address] Performed By: #### 5 7021-8 ####[facility] LABCLIA [id number] [place] [id number] [place] MCH (RBC) [Entitic mass] 26.4 pg Normal 26.0-34.0 [facility] Comment on above: Order Comment: Speci men Type: BLOOD SPECIMENOrdering Facility: [facility] Address: [address] [place] [address] Performed By: #### 5 7021-8 ####[facility] LABCLIA [id number] [place] [address] [place] MCHC (RBC) [Mass/Vol] 30.0 g/dL Low 30.5-36.0 [facility] Comment on above: Order Comment: Speci men Type: BLOOD SPECIMENOrdering Facility: [facility] Address: [address] [place] [address] Performed By: #### 5 7021-8 ####[facility]IA [id number] [place] [address] [place] MCV (RBC) [Entitic vol] 87.8 fL Normal 80.0-100.0 [facility] Comment on above: Order Comment: Speci men Type: BLOOD SPECIMENOrdering Facility: [facility] Address: [address] [place] [address] Performed By: #### 5 7021-8 ####[facility]IA [id number] [place] [address] [place] Monocytes (Bld) [#/Vol] 0.82 10*3/uL Normal <0.87 [facility] Comment on above: Order Comment: Speci men Type: BLOOD SPECIMENOrdering Facility: [facility] Address: [address] [place] [address] Performed By: #### 5 7021-8 ####[facility] LABCLIA [id number] [address] [place] Monocytes/100 WBC (Bld) 7.4 % Normal [facility] Comment on above: Order Comment: Speci men Type: BLOOD SPECIMENOrdering Facility: [facility] Address: [address] [place] [address] Performed By: #### 5 7021-8 ####[facility] LABCLIA [id number] [address], [place] [address] [place] Neutrophils (Bld) [#/Vol] 8.45 10*3/uL High 1.45-7.50 [facility] Comment on above: Order Comment: Speci men Type: BLOOD SPECIMENOrdering Facility: [facility] Address: [address] [place] [address] Performed By: #### 5 7021-8 ####[facility] LABCLIA [id number] [address], [place] [address] [place] Neutrophils/100 WBC (Bld) 75.7 % Normal [facility] Comment on above: Order Comment: Speci men Type: BLOOD SPECIMENOrdering Facility: [facility] Address: [address] [place] [address] Performed By: #### 5 7021-8 ####[facility] LABCLIA [id number] [address], [place] [address] [place] Nucleated RBC (Bld) [#/Vol] 10*3/uL Normal <0.01 [facility] Comment on above: Order Comment: Speci men Type: BLOOD SPECIMENOrdering Facility: [facility] Address: [address] [place] [address] Performed By: #### 5 7021-8 ####[facility] LABCLIA [id number] [facility] [address], [facility] [place] Nucleated RBC/100 WBC (Bld) [Ratio] 0.0 /100 WBC Normal [facility] Comment on above: Order Comment: Speci men Type: BLOOD SPECIMENOrdering Facility: [facility] Address: [address] [place] [address] Performed By: #### 5 7021-8 ####[facility] LABCLIA [id number] [place] [address] [place] Platelet mean volume (Bld) [Entitic vol] 10.1 fL Normal 9.0-12.7 [facility] Comment on above: Order Comment: Speci men Type: BLOOD SPECIMENOrdering Facility: [facility] Address: [address] [place] [address] Performed By: #### 5 7021-8 ####[facility]IA [id number] [place] [address] [place] Platelets (Bld) [#/Vol] 209 10*3/uL Normal 150-400 [facility] Comment on above: Order Comment: Speci men Type: BLOOD SPECIMENOrdering Facility: [facility] Address: [address] [place] [address] Performed By: #### 5 7021-8 ####[facility]IA [id number] [place] [address] [place] RBC (Bld) [#/Vol] 2.88 10*6/uL Low 3.90-5.20 [facility] Comment on above: Order Comment: Speci men Type: BLOOD SPECIMENOrdering Facility: [facility] Address: [address] [place] [address] Performed By: #### 5 7021-8 ####[facility]IA [id number] [place] [address] [place] WBC (Bld) [#/Vol] 11.15 10*3/uL High 3.70-11.00 [facility] Comment on above: Order Comment: Speci men Type: BLOOD SPECIMENOrdering Facility: [facility] Address: [address] [place] [address] Performed By: #### 5 7021-8 ####[facility]IA [id number] [place] [id number] [place] CBC panel Auto (Bld)on 12-15 Erythrocyte distribution width (RBC) [Ratio] 21.4 % High 11.5-15.0 [facility] Comment on above: Order Comment: Speci men Type: BLOOD SPECIMENOrdering Facility: [facility] Address: [address] [place] [address] Performed By: #### 5 8410-2 ####[facility] [id number] [place] [address] [place] Hematocrit (Bld) [Volume fraction] 25.5 % Low 36.0-46.0 [facility] Comment on above: Order Comment: Speci men Type: BLOOD SPECIMENOrdering Facility: [facility] Address: [address] [place] [address] Performed By: #### 5 8410-2 ####[facility]IA [id number] [place] [address] [place] Hemoglobin (Bld) [Mass/Vol] 7.7 g/dL Low 11.5-15.5 [facility] Comment on above: Order Comment: Speci men Type: BLOOD SPECIMENOrdering Facility: [facility] Address: [address] [place] [address] Performed By: #### 5 8410-2 ####[facility]IA [id number] [place] [address] [place] MCH (RBC) [Entitic mass] 26.6 pg Normal 26.0-34.0 [facility] Comment on above: Order Comment: Speci men Type: BLOOD SPECIMENOrdering Facility: [facility] Address: [address] [place] [address] Performed By: #### 5 8410-2 ####[facility] [id number] [place] [address] [place] MCHC (RBC) [Mass/Vol] 30.2 g/dL Low 30.5-36.0 [facility] Comment on above: Order Comment: Speci men Type: BLOOD SPECIMENOrdering Facility: [facility] Address: [address] [place] [address] Performed By: #### 5 8410-2 ####[facility] LABCLIA [id number] [place] [address] [place] MCV (RBC) [Entitic vol] 87.9 fL Normal 80.0-100.0 [facility] Comment on above: Order Comment: Speci men Type: BLOOD SPECIMENOrdering Facility: [facility] Address: [address] [place] [address] Performed By: #### 5 8410-2 ####[facility]IA [id number] [place] [address] [place] Nucleated RBC (Bld) [#/Vol] 10*3/uL Normal <0.01 [facility] Comment on above: Order Comment: Speci men Type: BLOOD SPECIMENOrdering Facility: [facility] Address: [address] [place] [address] Performed By: #### 5 8410-2 ####[facility]IA [id number] [place] [address] [place] Platelet mean volume (Bld) [Entitic vol] 9.6 fL Normal 9.0-12.7 [facility] Comment on above: Order Comment: Speci men Type: BLOOD SPECIMENOrdering Facility: [facility] Address: [address] [place] [address] Performed By: #### 5 8410-2 ####[facility] LABCLIA [id number] [place] [id number] [place] Platelets (Bld) [#/Vol] 212 10*3/uL Normal 150-400 [facility] Comment on above: Order Comment: Speci men Type: BLOOD SPECIMENOrdering Facility: [facility] Address: [address] [place] [address] Performed By: #### 5 8410-2 ####[facility] LABCLIA [id number] [address] [address] [place] RBC (Bld) [#/Vol] 2.90 10*6/uL Low 3.90-5.20 [facility] Comment on above: Order Comment: Speci men Type: BLOOD SPECIMENOrdering Facility: [facility] Address: [address] [place] [address] Performed By: #### 5 8410-2 ####[facility] LABCLIA [id number] [place] [id number] [place] WBC (Bld) [#/Vol] 11.25 10*3/uL High 3.70-11.00 [facility] Comment on above: Order Comment: Speci men Type: BLOOD SPECIMENOrdering Facility: [facility] Address: [address] [place] [address] Performed By: #### 5 8410-2 ####[facility] LABCLIA [id number] [place] [id number] [place] CRP SerPl-ncon 12-15-2024 CRP [Mass/Vol] 26.8 mg/dL High <0.9 [facility] Comment on above: Order Comment: Speci men Type: BLOOD SPECIMENOrdering Facility: [facility] Address: [address] [place] [address] Performed By: #### 2 4323-8, 1987-10, , 2776-06 ####[facility] LABCLIA [id number] [place] [id number] [place] Comprehensive metabolic 2000 panelon 12-15-2024 Albumin [Mass/Vol] 2.9 g/dL Low 3.9-4.9 [facility] Comment on above: Order Comment: Speci men Type: BLOOD SPECIMENOrdering Facility: [facility] Address: [address] [place] [address] Performed By: #### 2 4323-8, 1987-10, , 2776-06 ####[facility] LABCLIA [id number] [address] [address] [place] ALP [Catalytic activity/Vol] 95 U/L Normal 34-123 [facility] Comment on above: Order Comment: Speci men Type: BLOOD SPECIMENOrdering Facility: [facility] Address: [address] [place] [address] Performed By: #### 2 4323-8, 1987-10, , 2776-06 ####[facility] LABCLIA [id number] [place] [id number] [place] ALT [Catalytic activity/Vol] 19 U/L Normal 7-38 [facility] Comment on above: Order Comment: Speci men Type: BLOOD SPECIMENOrdering Facility: [facility] Address: [address] [place] [address] Performed By: #### 2 4328, 1987-10, , 2776-06 ####[facility] LABCLIA [id number] [place] [address] [place] Anion gap [Moles/Vol] 11 mmol/L Normal 8-15 [facility] Comment on above: Order Comment: Speci men Type: BLOOD SPECIMENOrdering Facility: [facility] Address: [address] [place] [address] Performed By: #### 2 43238, 1987-10, , 2776-06 ####[facility] LABCLIA [id number] [place] [id number] [place] AST [Catalytic activity/Vol] 11 U/L Low 13-35 [facility] Comment on above: Order Comment: Speci men Type: BLOOD SPECIMENOrdering Facility: [facility] Address: [address] [place] [address] Performed By: #### 2 4323-8, 1987-10, , 2776-06 ####[facility] LABCLIA [id number] [address] [place] [address] [place] Bilirubin [Mass/Vol] 0.5 mg/dL Normal 0.2-1.3 [facility] Comment on above: Order Comment: Speci men Type: BLOOD SPECIMENOrdering Facility: [facility] Address: [address] [place], [place] [address] Performed By: #### 2 4328, 1987-10, , 2776-06 ####[facility] LABCLIA [id number] [facility] [address] [place] [address] [place] Calcium [Mass/Vol] 8.6 mg/dL Normal 8.5-10.2 [facility] Comment on above: Order Comment: Speci men Type: BLOOD SPECIMENOrdering Facility: [facility] Address: [address] [place] [address] Performed By: #### 2 4328, 1987-10, , 2776-06 ####[facility]CLIA [id number] [facility] [address] [place] [address] [place] Chloride [Moles/Vol] 100 mmol/L Normal 98-107 [facility] Comment on above: Order Comment: Speci men Type: BLOOD SPECIMENOrdering Facility: [facility] Address: [address] [place], [place] [address] Performed By: #### 2 4328, 1987-10, , 2776-06 ####[facility]CLIA [id number] [facility] [address] [place] [address] [place] CO2 [Moles/Vol] 23 mmol/L Normal 22-30 [facility] Comment on above: Order Comment: Speci men Type: BLOOD SPECIMENOrdering Facility: [facility] Address: [address] [place], [place] [address] Performed By: #### 2 4323-8, 1987-10, , 2776-06 ####[facility] LABCLIA [id number] [place] [address] [address] [place] Creatinine [Mass/Vol] 0.75 mg/dL Normal 0.58-0.96 [facility] Comment on above: Order Comment: Dora finch Type: BLOOD SPECIMENOrdering Facility: [facility] Address: [address] [place] [address] Performed By: #### 2 4323-8, 1987-10, , 2776-06 ####[facility]IA [id number] [place] [address] [place] Creatinine and Glomerular filtration rate.predicted panel (S/P/Bld) 103 mL/min/1.73m??? Normal >=60 [facility] Comment on above: Order Comment: Dora finch Type: BLOOD SPECIMENOrdering Facility: [facility] Address: [address] [place] [address] Result Comment: Zeny mated Glomerular Filtration Rate [...] By: #### 2 4323-8, 1987-10, , 2776-06 ####[facility]IA [id number] [place] [id number] [place] Glucose [Mass/Vol] 103 mg/dL High 74-99 [facility] Comment on above: Order Comment: Dora finch Type: BLOOD SPECIMENOrdering Facility: [facility] Address: [address] [place] [address] Result Comment: The [place] Diabetes Association (ADA) provides guidance for cutoff [...] Standards of Medical Care in Diabetes 2016, [place] [employer]. Diabetes Care. 2016.39(Suppl 1). Performed By: #### 2 43238, 1987-10, , 2776-06 ####[facility] LABCLIA [id number] [address] [address] [place] Potassium [Moles/Vol] 3.0 mmol/L Low 3.7-5.1 [facility] Comment on above: Order Comment: Speci men Type: BLOOD SPECIMENOrdering Facility: [facility] Address: [address] [place] [address] Performed By: #### 2 43209-01, 1987-10, , 2776-06 ####[facility]IA [id number] [place] [address] [place] Protein [Mass/Vol] 6.0 g/dL Low 6.3-8.0 [facility] Comment on above: Order Comment: Florii men Type: BLOOD SPECIMENOrdering Facility: [facility] Address: [address] [place] [address] Performed By: #### 2 43209-01, 1987-10, , 2776-06 ####[facility]IA [id number] [place] [id number] [place] Sodium [Moles/Vol] 134 mmol/L Low 136-144 [facility] Comment on above: Order Comment: Speci men Type: BLOOD SPECIMENOrdering Facility: [facility] Address: [address] [place] [address] Performed By: #### 2 43238, 1987-10, , 2776-06 ####[facility]IA [id number] [place] [id number] [place] Urea nitrogen [Mass/Vol] 11 mg/dL Normal 7-21 [facility] Comment on above: Order Comment: Speci men Type: BLOOD SPECIMENOrdering Facility: [facility] Address: [address] [place], [place] [address] Performed By: #### 2 4323-8, 1987-10, , 2776-06 ####[facility]IA [id number] [place] [id number] [place] Magnesium SerPl-mCncon 12-15 Magnesium [Mass/Vol] 1.9 mg/dL Normal 1.7-2.3 [facility] Comment on above: Order Comment: Speci men Type: BLOOD SPECIMENOrdering Facility: [facility] Address: [address] [place] [address] Performed By: #### 2 4323-8, 1987-10, , 2776-06 ####[facility]IA [id number] [place] [id number] [place] Phosphate SerPl-mCncon 12-15 Phosphate [Mass/Vol] 2.8 mg/dL Normal 2.7-4.8 [facility] Comment on above: Order Comment: Speci men Type: BLOOD SPECIMENOrdering Facility: [facility] Address: [address] [place] [address] Performed By: #### 2 43238, 1987-10, , 2776-06 ####[facility]IA [id number] [address] [address] [place] CASE MANAGEMon 12-14-2024 CASE MANAGEM Normal [facility] CBC W Auto Differential pane l (Bld)on 12-14-2024 Basophils (Bld) [#/Vol] 0.05 10*3/uL Normal <0.11 [facility] Comment on above: Order Comment: Speci men Type: BLOOD SPECIMENOrdering Facility: [facility] Address: [address] [place] [address] Performed By: #### 5 7021-8 ####[facility] LABCLIA [id number] [place] [address] [place] Basophils/100 WBC (Bld) 0.3 % Normal [facility] Comment on above: Order Comment: Speci men Type: BLOOD SPECIMENOrdering Facility: [facility] Address: [address] [place] [address] Performed By: #### 5 7021-8 ####[facility]CLIA [id number] [place] [address] [place] Differential cell count method Nom (Bld) Auto Normal [facility] Comment on above: Order Comment: Speci men Type: BLOOD SPECIMENOrdering Facility: [facility] Address: [address] [place] [address] Performed By: #### 5 7021-8 ####[facility] LABCLIA [id number] [place] [address] [place] Eosinophils (Bld) [#/Vol] 0.14 10*3/uL Normal <0.46 [facility] Comment on above: Order Comment: Speci men Type: BLOOD SPECIMENOrdering Facility: [facility] Address: [address] [place] [address] Performed By: #### 5 7021-8 ####[facility]CLIA [id number] [place] [address] [place] Eosinophils/100 WBC (Bld) 0.9 % Normal [facility] Comment on above: Order Comment: Speci men Type: BLOOD SPECIMENOrdering Facility: [facility] Address: [address] [place] [address] Performed By: #### 5 7021-8 ####[facility] LABCLIA [id number] [place] [address] [place] Erythrocyte distribution width (RBC) [Ratio] 22.0 % High 11.5-15.0 [facility] Comment on above: Order Comment: Speci men Type: BLOOD SPECIMENOrdering Facility: [facility] Address: [address] [place] [address] Performed By: #### 5 7021-8 ####[facility] LABCLIA [id number] [place] [address] [place] Hematocrit (Bld) [Volume fraction] 28.7 % Low 36.0-46.0 [facility] Comment on above: Order Comment: Speci men Type: BLOOD SPECIMENOrdering Facility: [facility] Address: [address] [place] [address] Performed By: #### 5 7021-8 ####[facility]CLIA [id number] [place] [address] [place] Hemoglobin (Bld) [Mass/Vol] 8.6 g/dL Low 11.5-15.5 [facility] Comment on above: Order Comment: Speci men Type: BLOOD SPECIMENOrdering Facility: [facility] Address: [address] [place] [address] Performed By: #### 5 7021-8 ####[facility]IA [id number] [place] [address] [place] Immature granulocytes (Bld) [#/Vol] 0.12 10*3/uL High <0.10 [facility] Comment on above: Order Comment: Speci men Type: BLOOD SPECIMENOrdering Facility: [facility] Address: [address] [place] [address] Performed By: #### 5 7021-8 ####[facility] LABIA [id number] [place] [address] [place] Immature granulocytes/100 WBC (Bld) 0.7 % Normal [facility] Comment on above: Order Comment: Speci men Type: BLOOD SPECIMENOrdering Facility: [facility] Address: [address] [place] [address] Performed By: #### 5 7021-8 ####[facility] LABCLIA [id number] [place] [address] [place] Lymphocytes (Bld) [#/Vol] 1.56 10*3/uL Normal 1.00-4.00 [facility] Comment on above: Order Comment: Speci men Type: BLOOD SPECIMENOrdering Facility: [facility] Address: [address] [place] [address] Performed By: #### 5 7021-8 ####[facility] LABCLIA [id number] [place] [address] [place] Lymphocytes/100 WBC (Bld) 9.7 % Normal [facility] Comment on above: Order Comment: Speci men Type: BLOOD SPECIMENOrdering Facility: [facility] Address: [address] [place] [address] Performed By: #### 5 7021-8 ####[facility] LABCLIA [id number] [place] [address] [place] MCH (RBC) [Entitic mass] 26.5 pg Normal 26.0-34.0 [facility] Comment on above: Order Comment: Speci men Type: BLOOD SPECIMENOrdering Facility: [facility] [facility] Address: [address] [place] [address] Performed By: #### 5 7021-8 ####[facility] LABCLIA [id number] [place] [address] [place] MCHC (RBC) [Mass/Vol] 30.0 g/dL Low 30.5-36.0 [facility] Comment on above: Order Comment: Speci men Type: BLOOD SPECIMENOrdering Facility: [facility] Address: [address] [place] [address] Performed By: #### 5 7021-8 ####[facility] LABCLIA [id number] [place] [address] [place] MCV (RBC) [Entitic vol] 88.6 fL Normal 80.0-100.0 [facility] Comment on above: Order Comment: Speci men Type: BLOOD SPECIMENOrdering Facility: [facility] Address: [address] [place] [address] Performed By: #### 5 7021-8 ####[facility] LABCLIA [id number] [place] [address] [place] Monocytes (Bld) [#/Vol] 1.48 10*3/uL High <0.87 [facility] Comment on above: Order Comment: Speci men Type: BLOOD SPECIMENOrdering Facility: [facility] Address: [address] [place] [address] Performed By: #### 5 7021-8 ####[facility] LABCLIA [id number] [place] [address] [place] Monocytes/100 WBC (Bld) 9.2 % Normal [facility] Comment on above: Order Comment: Speci men Type: BLOOD SPECIMENOrdering Facility: [facility] Address: [address] [place] [address] Performed By: #### 5 7021-8 ####[facility] LABCLIA [id number] [place] [address] [place] Neutrophils (Bld) [#/Vol] 12.66 10*3/uL High 1.45-7.50 [facility] Comment on above: Order Comment: Speci men Type: BLOOD SPECIMENOrdering Facility: [facility] Address: [address] [place] [address] Performed By: #### 5 7021-8 ####[facility] LABIA [id number] [place] [address] [place] Neutrophils/100 WBC (Bld) 79.2 % Normal [facility] Comment on above: Order Comment: Speci men Type: BLOOD SPECIMENOrdering Facility: [facility] Address: [address] [place] [address] Performed By: #### 5 7021-8 ####[facility] LABCLIA [id number] [place] [address] [place] Nucleated RBC (Bld) [#/Vol] 0.02 10*3/uL High <0.01 [facility] Comment on above: Order Comment: Speci men Type: BLOOD SPECIMENOrdering Facility: [facility] Address: [address] [place] [address] Performed By: #### 5 7021-8 ####[facility] LABCLIA [id number] [place] [address] [place] Nucleated RBC/100 WBC (Bld) [Ratio] 0.1 /100 WBC Normal [facility] Comment on above: Order Comment: Speci men Type: BLOOD SPECIMENOrdering Facility: [facility] Address: [address] [place] [address] Performed By: #### 5 7021-8 ####[facility] LABIA [id number] [place] [address] [place] Platelet mean volume (Bld) [Entitic vol] 9.7 fL Normal 9.0-12.7 [facility] Comment on above: Order Comment: Speci men Type: BLOOD SPECIMENOrdering Facility: [facility] Address: [address] [place] [address] Performed By: #### 5 7021-8 ####[facility] LABCLIA [id number] [place] [address] [place] Platelets (Bld) [#/Vol] 236 10*3/uL Normal 150-400 [facility] Comment on above: Order Comment: Speci men Type: BLOOD SPECIMENOrdering Facility: [facility] Address: [address] [place] [address] Performed By: #### 5 7021-8 ####[facility] LABCLIA [id number] [address] [address] [place] RBC (Bld) [#/Vol] 3.24 10*6/uL Low 3.90-5.20 [facility] Comment on above: Order Comment: Speci men Type: BLOOD SPECIMENOrdering Facility: [facility] Address: [address] [place] [address] Performed By: #### 5 7021-8 ####[facility] LABCLIA [id number] [place] [id number] [place] WBC (Bld) [#/Vol] 16.01 10*3/uL High 3.70-11.00 [facility] Comment on above: Order Comment: Speci men Type: BLOOD SPECIMENOrdering Facility: [facility] Address: [address] [place] [address] Performed By: #### 5 7021-8 ####[facility] LABCLIA [id number] [place] [id number] [place] CONSULT PROGon 12-14-2024 CONSULT PROG Normal [facility] CONSULT PROG Normal [facility] Comprehensive metabolic 2000 panelon 12-14-2024 Albumin [Mass/Vol] 3.3 g/dL Low 3.9-4.9 [facility] Comment on above: Order Comment: Speci men Type: BLOOD SPECIMENOrdering Facility: [facility] Address: [address] [place] [address] Performed By: #### 2 4323-8, 70273-2, 2777- ####[facility] LABCLIA [id number] [place] [id number] [place] ALP [Catalytic activity/Vol] 103 U/L Normal 34-123 [facility] Comment on above: Order Comment: Speci men Type: BLOOD SPECIMENOrdering Facility: [facility] Address: [address] [place] [address] Performed By: #### 2 4323-8, 09359-8, 2777-1 ####[facility] LABCLIA [id number] [facility] [id number] [address] [place] ALT [Catalytic activity/Vol] 25 U/L Normal 7-38 [facility] Comment on above: Order Comment: Speci men Type: BLOOD SPECIMENOrdering Facility: [facility] Address: [address] [place] [address] Performed By: #### 2 4323-8, , 2776-06 ####[facility] LABCLIA [id number] [facility] [address] [place] [address] [place] Anion gap [Moles/Vol] 12 mmol/L Normal 8-15 [facility] Comment on above: Order Comment: Speci men Type: BLOOD SPECIMENOrdering Facility: [facility] Address: [address] [place] [address] Performed By: #### 2 4323-8, , 2776-06 ####[facility] LABCLIA [id number] [address] [place] [address] [place] AST [Catalytic activity/Vol] 19 U/L Normal 13-35 [facility] Comment on above: Order Comment: Speci men Type: BLOOD SPECIMENOrdering Facility: [facility] Address: [address] [place] [address] Performed By: #### 2 4323-8, , 2776-06 ####[facility] LABCLIA [id number] [address] [place] [address] [place] Bilirubin [Mass/Vol] 0.9 mg/dL Normal 0.2-1.3 [facility] Comment on above: Order Comment: Speci men Type: BLOOD SPECIMENOrdering Facility: [facility] Address: [address] [place] [address] Performed By: #### 2 4323-8, , 2776- ####[facility] LABCLIA [id number] [address] [place] [address] [place] Calcium [Mass/Vol] 8.6 mg/dL Normal 8.5-10.2 [facility] Comment on above: Order Comment: Speci men Type: BLOOD SPECIMENOrdering Facility: [facility] Address: [address] [place] [address] Performed By: #### 2 4323-8, 89411-0, 2776-06 ####[facility] LABCLIA [id number] [place] [id number] [place] Chloride [Moles/Vol] 100 mmol/L Normal 98-107 [facility] Comment on above: Order Comment: Speci men Type: BLOOD SPECIMENOrdering Facility: [facility] Address: [address] [place] [address] Performed By: #### 2 4323-8, , 2776-06 ####[facility] LABCLIA [id number] [place] [address] [place] CO2 [Moles/Vol] 21 mmol/L Low 22-30 [facility] Comment on above: Order Comment: Speci men Type: BLOOD SPECIMENOrdering Facility: [facility] Address: [address] [place] [address] Performed By: #### 2 4323-8, , 2776-06 ####[facility] LABCLIA [id number] [place] [id number] [place] Creatinine [Mass/Vol] 0.91 mg/dL Normal 0.58-0.96 [facility] Comment on above: Order Comment: Speci men Type: BLOOD SPECIMENOrdering Facility: [facility] Address: [address] [place] [address] Performed By: #### 2 4323-8, , 2776-06 ####[facility] LABCLIA [id number] [facility] [place] [id number] [place] Creatinine and Glomerular filtration rate.predicted panel (S/P/Bld) 81 mL/min/1.73m??? Normal >=60 [facility] Comment on above: Order Comment: Dora finch Type: BLOOD SPECIMENOrdering Facility: [facility] Address: [address] [place] [address] Result Comment: Zeny mated Glomerular Filtration Rate [...] Performed By: #### 2 4323-8, , 2776-06 ####[facility] LABIA [id number] [address] [address] [place] Glucose [Mass/Vol] 139 mg/dL High 74-99 [facility] Comment on above: Order Comment: Dora finch Type: BLOOD SPECIMENOrdering Facility: [facility] Address: [address] [place] [address] Result Comment: The [place] Diabetes Association (ADA) provides guidance for cutoff [...] Standards of Medical Care in Diabetes 2016, [place] [employer]. Diabetes Care. 2016.39(Suppl 1). Performed By: #### 2 4323-8, 98317-1, 2776- ####[facility] LABIA [id number] [address] [address] [place] Potassium [Moles/Vol] 3.8 mmol/L Normal 3.7-5.1 [facility] Comment on above: Order Comment: Speci men Type: BLOOD SPECIMENOrdering Facility: [facility] Address: [address] [place], [place] [address] Performed By: #### 2 4323-8, , 2776-06 ####[facility] LABCLIA [id number] [address] [place] [address] [place] Protein [Mass/Vol] 6.2 g/dL Low 6.3-8.0 [facility] Comment on above: Order Comment: Speci men Type: BLOOD SPECIMENOrdering Facility: [facility] Address: [address] [place], [place] [address] Performed By: #### 2 4323-8, , 2776-06 ####[facility] LABCLIA [id number] [address] [address] [place] Sodium [Moles/Vol] 133 mmol/L Low 136-144 [facility] Comment on above: Order Comment: Speci men Type: BLOOD SPECIMENOrdering Facility: [facility] Address: [address] [place], [place] [address] Performed By: #### 2 4323-8, , 2776-06 ####[facility] LABCLIA [id number] [address] [address] [place] Urea nitrogen [Mass/Vol] 11 mg/dL Normal 7-21 [facility] Comment on above: Order Comment: Speci men Type: BLOOD SPECIMENOrdering Facility: [facility] Address: [address] [place], [place] [address] Performed By: #### 2 4323-8, , 2776-06 ####[facility] LABCLIA [id number] [address] [address] [place] Magnesium SerPl-mCncon 12-14 Magnesium [Mass/Vol] 1.9 mg/dL Normal 1.7-2.3 [facility] Comment on above: Order Comment: Speci men Type: BLOOD SPECIMENOrdering Facility: [facility] Address: [address] [place] [address] Performed By: #### 2 4323-8, , 2776-06 ####[facility] LABCLIA [id number] [place] [address] [place] Phosphate SerPl-mCncon 12-14 Phosphate [Mass/Vol] 2.3 mg/dL Low 2.7-4.8 [facility] Comment on above: Order Comment: Speci men Type: BLOOD SPECIMENOrdering Facility: [facility] Address: [address] [place] [address] Performed By: #### 2 4323-8, , 2776-06 ####[facility] LABCLIA [id number] [place] [address] [place] XR ABDOMEN 1V SUPINEon 12-14 XR ABDOMEN 1V SUPINE Normal [facility] CBC W Auto Differential pane l (Bld)on 12-13-2024 Basophils (Bld) [#/Vol] 0.04 10*3/uL Normal <0.11 [facility] Comment on above: Order Comment: Speci men Type: BLOOD SPECIMENOrdering Facility: [facility] Address: [address] [place] [address] Performed By: #### 5 7021-8 ####[facility] LABCLIA [id number] [place] [address] [place] Basophils/100 WBC (Bld) 0.3 % Normal [facility] Comment on above: Order Comment: Speci men Type: BLOOD SPECIMENOrdering Facility: [facility] Address: [address] [place] [address] Performed By: #### 5 7021-8 ####[facility] LABCLIA [id number] [place] [address] [place] Differential cell count method Nom (Bld) Auto Normal [facility] Comment on above: Order Comment: Speci men Type: BLOOD SPECIMENOrdering Facility: [facility] Address: [address] [place] [address] Performed By: #### 5 7021-8 ####[facility] LABCLIA [id number] [place] [address] [place] Eosinophils (Bld) [#/Vol] 10*3/uL Normal <0.46 [facility] Comment on above: Order Comment: Speci men Type: BLOOD SPECIMENOrdering Facility: [facility] Address: [address] [place] [address] Performed By: #### 5 7021-8 ####[facility] LABIA [id number] [place] [address] [place] Eosinophils/100 WBC (Bld) 0.1 % Normal [facility] Comment on above: Order Comment: Speci men Type: BLOOD SPECIMENOrdering Facility: [facility] Address: [address] [place] [address] Performed By: #### 5 7021-8 ####[facility] LABIA [id number] [place] [address] [place] Erythrocyte distribution width (RBC) [Ratio] 23.1 % High 11.5-15.0 [facility] Comment on above: Order Comment: Speci men Type: BLOOD SPECIMENOrdering Facility: [facility] Address: [address] [place] [address] Performed By: #### 5 7021-8 ####[facility] LABIA [id number] [place] [id number] [place] Hematocrit (Bld) [Volume fraction] 34.3 % Low 36.0-46.0 [facility] Comment on above: Order Comment: Speci men Type: BLOOD SPECIMENOrdering Facility: [facility] Address: [address] [place] [address] Performed By: #### 5 7021-8 ####[facility] LABCLIA [id number] [place] [address] [place] Hemoglobin (Bld) [Mass/Vol] 10.3 g/dL Low 11.5-15.5 [facility] Comment on above: Order Comment: Speci men Type: BLOOD SPECIMENOrdering Facility: [facility] Address: [address] [place] [address] Performed By: #### 5 7021-8 ####[facility] LABIA [id number] [place] [address] [place] Immature granulocytes (Bld) [#/Vol] 0.12 10*3/uL High <0.10 [facility] Comment on above: Order Comment: Speci men Type: BLOOD SPECIMENOrdering Facility: [facility] Address: [address] [place] [address] Performed By: #### 5 7021-8 ####[facility] LABIA [id number] [place] [address] [place] Immature granulocytes/100 WBC (Bld) 0.8 % Normal [facility] Comment on above: Order Comment: Speci men Type: BLOOD SPECIMENOrdering Facility: [facility] Address: [address] [place] [address] Performed By: #### 5 7021-8 ####[facility] LABIA [id number] [place] [address] [place] Lymphocytes (Bld) [#/Vol] 1.27 10*3/uL Normal 1.00-4.00 [facility] Comment on above: Order Comment: Speci men Type: BLOOD SPECIMENOrdering Facility: [facility] Address: [address] [place] [address] Performed By: #### 5 7021-8 ####[facility] LABIA [id number] [place] [address] [place] Lymphocytes/100 WBC (Bld) 8.0 % Normal [facility] Comment on above: Order Comment: Speci men Type: BLOOD SPECIMENOrdering Facility: [facility] Address: [address] [place] [address] Performed By: #### 5 7021-8 ####[facility] LABIA [id number] [place] [address] [place] MCH (RBC) [Entitic mass] 26.9 pg Normal 26.0-34.0 [facility] Comment on above: Order Comment: Speci men Type: BLOOD SPECIMENOrdering Facility: [facility] Address: [address] [place] [address] Performed By: #### 5 7021-8 ####[facility] LABIA [id number] [place] [address] [place] MCHC (RBC) [Mass/Vol] 30.0 g/dL Low 30.5-36.0 [facility] Comment on above: Order Comment: Speci men Type: BLOOD SPECIMENOrdering Facility: [facility] Address: [address] [place] [address] Performed By: #### 5 7021-8 ####[facility] [id number] [place] [address] [place] MCV (RBC) [Entitic vol] 89.6 fL Normal 80.0-100.0 [facility] Comment on above: Order Comment: Speci men Type: BLOOD SPECIMENOrdering Facility: [facility] Address: [address] [place] [address] Performed By: #### 5 7021-8 ####[facility] LABIA [id number] [place] [address] [place] Monocytes (Bld) [#/Vol] 1.51 10*3/uL High <0.87 [facility] Comment on above: Order Comment: Speci men Type: BLOOD SPECIMENOrdering Facility: [facility] Address: [address] [place] [address] Performed By: #### 5 7021-8 ####[facility] LABCLIA [id number] [place] [address] [place] Monocytes/100 WBC (Bld) 9.5 % Normal [facility] Comment on above: Order Comment: Speci men Type: BLOOD SPECIMENOrdering Facility: [facility] Address: [address] [place] [address] Performed By: #### 5 7021-8 ####[facility] LABCLIA [id number] [place] [address] [place] Neutrophils (Bld) [#/Vol] 12.87 10*3/uL High 1.45-7.50 [facility] Comment on above: Order Comment: Speci men Type: BLOOD SPECIMENOrdering Facility: [facility] Address: [address] [place] [address] Performed By: #### 5 7021-8 ####[facility] LABCLIA [id number] [place] [address] [place] Neutrophils/100 WBC (Bld) 81.3 % Normal [facility] Comment on above: Order Comment: Speci men Type: BLOOD SPECIMENOrdering Facility: [facility] Address: [address] [place] [address] Performed By: #### 5 7021-8 ####[facility] LABCLIA [id number] [place] [address] [place] Nucleated RBC (Bld) [#/Vol] 0.02 10*3/uL High <0.01 [facility] Comment on above: Order Comment: Speci men Type: BLOOD SPECIMENOrdering Facility: [facility] Address: [address] [place] [address] Performed By: #### 5 7021-8 ####[facility] LABCLIA [id number] [place] [address] [place] Nucleated RBC/100 WBC (Bld) [Ratio] 0.1 /100 WBC Normal [facility] Comment on above: Order Comment: Speci men Type: BLOOD SPECIMENOrdering Facility: [facility] Address: [address] [place] [address] Performed By: #### 5 7021-8 ####[facility] LABCLIA [id number] [place] [address] [place] Platelet mean volume (Bld) [Entitic vol] 9.7 fL Normal 9.0-12.7 [facility] Comment on above: Order Comment: Speci men Type: BLOOD SPECIMENOrdering Facility: [facility] Address: [address] [place] [address] Performed By: #### 5 7021-8 ####[facility] LABIA [id number] [place] [address] [place] Platelets (Bld) [#/Vol] 274 10*3/uL Normal 150-400 [facility] Comment on above: Order Comment: Speci men Type: BLOOD SPECIMENOrdering Facility: [facility] Address: [address] [place] [address] Performed By: #### 5 7021-8 ####[facility] LABIA [id number] [place] [address] [place] RBC (Bld) [#/Vol] 3.83 10*6/uL Low 3.90-5.20 [facility] Comment on above: Order Comment: Speci men Type: BLOOD SPECIMENOrdering Facility: [facility] Address: [address] [place] [address] Performed By: #### 5 7021-8 ####[facility] LABIA [id number] [place] [address] [place] WBC (Bld) [#/Vol] 15.82 10*3/uL High 3.70-11.00 [facility] Comment on above: Order Comment: Speci men Type: BLOOD SPECIMENOrdering Facility: [facility] Address: [address] [place] [address] Performed By: #### 5 7021-8 ####[facility] LABCLIA [id number] [address] [address] [place] CNPNon 12-13-2024 CNPN Normal [facility] CONSULTon 12-13-2024 CONSULT Normal [facility] CONSULT PROGon 12-13-2024 CONSULT PROG Normal [facility] CONSULT PROG Normal [facility] CRP SerPl-mCncon 12-13-2024 CRP [Mass/Vol] 14.4 mg/dL High <0.9 [facility] Comment on above: Order Comment: Speci men Type: BLOOD SPECIMENOrdering Facility: [facility] Address: [address] [place] [address] Performed By: #### 1 988-5 ####[facility] LABCLIA [id number] [address], [facility] [place] Comprehensive metabolic 2000 panelon 12-13-2024 Albumin [Mass/Vol] 3.8 g/dL Low 3.9-4.9 [facility] Comment on above: Order Comment: Speci men Type: BLOOD SPECIMENOrdering Facility: [facility] Address: [address] [place] [address] Performed By: #### 2 4323-8, , 2776- ####[facility] LABCLIA [id number] [address] [place] [address] [place] ALP [Catalytic activity/Vol] 118 U/L Normal 34-123 [facility] Comment on above: Order Comment: Speci men Type: BLOOD SPECIMENOrdering Facility: [facility] Address: [address] [place] [address] Performed By: #### 2 4323-8, 22261-0, 7- ####[facility] LABCLIA [id number] [address] [place] [address] [place] ALT [Catalytic activity/Vol] 40 U/L High 7-38 [facility] Comment on above: Order Comment: Speci men Type: BLOOD SPECIMENOrdering Facility: [facility] Address: [address] [place], [place] [address] Performed By: #### 2 4323-8, 72553-1, 2776-06 ####[facility] LABCLIA [id number] [facility] [address] [place] [address] [place] Anion gap [Moles/Vol] 14 mmol/L Normal 8-15 [facility] Comment on above: Order Comment: Speci men Type: BLOOD SPECIMENOrdering Facility: [facility] Address: [address] [place] [address] Performed By: #### 2 4323-8, , 2776-06 ####[facility] LABCLIA [id number] [place] [id number] [place] AST [Catalytic activity/Vol] 31 U/L Normal 13-35 [facility] Comment on above: Order Comment: Speci men Type: BLOOD SPECIMENOrdering Facility: [facility] Address: [address] [place] [address] Performed By: #### 2 4323-8, , 2776-06 ####[facility] LABCLIA [id number] [facility] [address], [facility] [place] Bilirubin [Mass/Vol] 1.1 mg/dL Normal 0.2-1.3 [facility] Comment on above: Order Comment: Speci men Type: BLOOD SPECIMENOrdering Facility: [facility] Address: [address] [place], [place] [address] Performed By: #### 2 4323-8, , 2776-06 ####[facility] LABCLIA [id number] [place] [facility] [address] [place] [address] [place] Calcium [Mass/Vol] 9.0 mg/dL Normal 8.5-10.2 [facility] Comment on above: Order Comment: Speci men Type: BLOOD SPECIMENOrdering Facility: [facility] Address: [address] [place], [place] [address] Performed By: #### 2 4323-8, , 2776-06 ####[facility] LABCLIA [id number] [facility] [id number] [address] [place] Chloride [Moles/Vol] 102 mmol/L Normal 98-107 [facility] Comment on above: Order Comment: Speci men Type: BLOOD SPECIMENOrdering Facility: [facility] Address: [address] [place], [place] [address] Performed By: #### 2 4323-8, , 2776-06 ####[facility] LABCLIA [id number] [address] [address] [place] CO2 [Moles/Vol] 21 mmol/L Low 22-30 [facility] Comment on above: Order Comment: Speci men Type: BLOOD SPECIMENOrdering Facility: [facility] Address: [address] [place], [place] [address] Performed By: #### 2 4323-8, , 2776-06 ####[facility] LABCLIA [id number] [address] [place] [address] [place] Creatinine [Mass/Vol] 0.74 mg/dL Normal 0.58-0.96 [facility] Comment on above: Order Comment: Speci men Type: BLOOD SPECIMENOrdering Facility: [facility] Address: [address] [place] [address] Performed By: #### 2 4323-8, , 2776-06 ####[facility] LABCLIA [id number] [facility] [address] [place] [address] [place] Creatinine and Glomerular filtration rate.predicted panel (S/P/Bld) 104 mL/min/1.73m??? Normal >=60 [facility] Comment on above: Order Comment: Speci men Type: BLOOD SPECIMENOrdering Facility: [facility] Address: [address] [place] [address] Result Comment: Zeny mated Glomerular Filtration Rate [...] actual GFR. Performed By: #### 2 4323-8, 57053-7, 2776-06 ####[facility] LABIA [id number] [place] [id number] [place] Glucose [Mass/Vol] 124 mg/dL High 74-99 [facility] Comment on above: Order Comment: Dora finch Type: BLOOD SPECIMENOrdering Facility: [facility] Address: [address] [place] [address] Result Comment: The [place] Diabetes Association (ADA) provides guidance for cutoff [...] Standards of Medical Care in Diabetes 2016, [place] [employer]. Diabetes Care. 2016.39(Suppl 1). Performed By: #### 2 4323-8, 64923-3, 2776-06 ####[facility] LABIA [id number] [place] [id number] [place] Potassium [Moles/Vol] 4.5 mmol/L Normal 3.7-5.1 [facility] Comment on above: Order Comment: Dora finch Type: BLOOD SPECIMENOrdering Facility: [facility] Address: [address] [place] [address] Performed By: #### 2 4323-8, 64494-4, 2776-06 ####[facility] LABIA [id number] [place] [id number] [place] Protein [Mass/Vol] 6.5 g/dL Normal 6.3-8.0 [facility] Comment on above: Order Comment: Speci men Type: BLOOD SPECIMENOrdering Facility: [facility] Address: [address] [place] [address] Performed By: #### 2 4323-8, 28978-9, 2776-06 ####[facility] LABIA [id number] [place] [id number] [place] Sodium [Moles/Vol] 137 mmol/L Normal 136-144 [facility] Comment on above: Order Comment: Speci men Type: BLOOD SPECIMENOrdering Facility: [facility] Address: [address] [place] [address] Performed By: #### 2 4323-8, 30291-3, 2776-06 ####[facility] LABIA [id number] [place] [id number] [place] Urea nitrogen [Mass/Vol] 11 mg/dL Normal 7-21 [facility] Comment on above: Order Comment: Speci men Type: BLOOD SPECIMENOrdering Facility: [facility] Address: [address] [place] [address] Performed By: #### 2 4323-8, 56553-3, 2776-06 ####[facility] LABIA [id number] [address] [address] [place] Magnesium SerPl-mCncon 12-13 Magnesium [Mass/Vol] 1.6 mg/dL Low 1.7-2.3 [facility] Comment on above: Order Comment: Speci men Type: BLOOD SPECIMENOrdering Facility: [facility] Address: [address] [place], [place] [address] Performed By: #### 2 4323-8, 32391-4, 2777-1 ####[facility] LABCLIA [id number] [place] [id number] [place] Phosphate SerPl-mCncon 12-13 Phosphate [Mass/Vol] 3.8 mg/dL Normal 2.7-4.8 [facility] Comment on above: Order Comment: Speci men Type: BLOOD SPECIMENOrdering Facility: [facility] Address: [address] [place] [address] Performed By: #### 2 4323-8, 96090-6, 2777-1 ####[facility] LABIA [id number] [place] [address] [place] ANES POSTPROC EVALon 025 ANES POSTPROC EVAL Normal [facility] ANES PRE-OPon 12-12-2024 ANES PRE-OP Normal [facility] ARTERIAL BLOOD GASESon 12-12 Base deficit (BldA) [Moles/Vol] -6 mmol/L Low -2-0 [facility] Comment on above: Order Comment: Speci men Type: ARTERIAL BLOOD SPECIMENOrdering Facility: [facility] Address: [address] [place] [address] Performed By: #### A LLBG ####[facility] LABIA [id number] [place] [id number] [place] Body temperature 97.34 [degF] Normal [facility] Comment on above: Order Comment: Speci men Type: ARTERIAL BLOOD SPECIMENOrdering Facility: [facility] Address: [address] [place] [address] Performed By: #### A LLBG ####[facility] LABCLIA [id number] [place] [id number] [place] Calcium.ionized (Bld) [Mass/Vol] 1.19 mmol/L Normal 1.08-1.30 [facility] Comment on above: Order Comment: Speci men Type: ARTERIAL BLOOD SPECIMENOrdering Facility: [facility] Address: [address] [place] [address] Performed By: #### A LLBG ####[facility] LABCLIA [id number] [place] [address] [place] Calcium.ionized adjusted to pH 7.4 (BldA) [Moles/Vol] 1.15 mmol/L Normal 1.08-1.30 [facility] Comment on above: Order Comment: Speci men Type: ARTERIAL BLOOD SPECIMENOrdering Facility: [facility] Address: [address] [place] [address] Performed By: #### A LLBG ####[facility] LABCLIA [id number] [place] [address] [place] Carboxyhemoglobin (BldA) [Mass fraction] 1.6 % Normal 0.0-2.0 [facility] Comment on above: Order Comment: Speci men Type: ARTERIAL BLOOD SPECIMENOrdering Facility: [facility] Address: [address] [place] [address] Result Comment: Carb oxyhemoglobin Reference Range for Smokers: 2.0-8.0% Performed By: #### A LLBG ####[facility] LABCLIA [id number] [place] [address] [place] CO2 (Bld) [Partial pressure] 38 mm Hg Normal 36-46 [facility] Comment on above: Order Comment: Speci men Type: ARTERIAL BLOOD SPECIMENOrdering Facility: [facility] Address: [address] [place] [address] Performed By: #### A LLBG ####[facility] LABCLIA [id number] [place] [id number] [place] CO2 adjusted to patient's actual temperature (Bld) [Partial pressure] 36 mmHg Normal 36-46 [facility] Comment on above: Order Comment: Speci men Type: ARTERIAL BLOOD SPECIMENOrdering Facility: [facility] Address: [address] [place] [address] Performed By: #### A LLBG ####[facility] LABCLIA [id number] [place] [address] [place] Glucose [Mass/Vol] 178 mg/dL High 60-105 [facility] Comment on above: Order Comment: Speci men Type: ARTERIAL BLOOD SPECIMENOrdering Facility: [facility] Address: [address] [place] [address] Performed By: #### A LLBG ####[facility] LABCLIA [id number] [place] [address] [place] HCO3 (Bld) [Moles/Vol] 19 mmol/L Low 22-26 [facility] Comment on above: Order Comment: Speci men Type: ARTERIAL BLOOD SPECIMENOrdering Facility: [facility] Address: [address] [place] [address] Performed By: #### A LLBG ####[facility] LABCLIA [id number] [place] [address] [place] Hematocrit (Bld) [Volume fraction] 27.9 % Low 36.0-46.0 [facility] Comment on above: Order Comment: Speci men Type: ARTERIAL BLOOD SPECIMENOrdering Facility: [facility] Address: [address] [place] [address] Performed By: #### A LLBG ####[facility] LABCLIA [id number] [place] [id number] [place] Hemoglobin (Bld) [Mass/Vol] 9.0 g/dL Low 11.5-15.5 [facility] Comment on above: Order Comment: Speci men Type: ARTERIAL BLOOD SPECIMENOrdering Facility: [facility] Address: [address] [place] [address] Performed By: #### A LLBG ####[facility] LABCLIA [id number] [place] [id number] [place] Lactate [Moles/Vol] 5.1 mmol/L High 0.5-2.2 [facility] Comment on above: Order Comment: Speci men Type: ARTERIAL BLOOD SPECIMENOrdering Facility: [facility] Address: [address] [place] [address] Performed By: #### A LLBG ####[facility] LABCLIA [id number] [place] [address] [place] LITERS 2 Liters/min Normal [facility] Comment on above: Order Comment: Speci men Type: ARTERIAL BLOOD SPECIMENOrdering Facility: [facility] Address: [address] [place] [address] Performed By: #### A LLBG ####[facility] LABCLIA [id number] [place] [address] [place] Methemoglobin (Bld) [Mass fraction] 1.0 % Normal 0.0-1.5 [facility] Comment on above: Order Comment: Speci men Type: ARTERIAL BLOOD SPECIMENOrdering Facility: [facility] Address: [address] [place] [address] Performed By: #### A LLBG ####[facility] LABCLIA [id number] [place] [address] [place] O2 THERAPY NC = Nasal Cannula Normal [facility] Comment on above: Order Comment: Speci men Type: ARTERIAL BLOOD SPECIMENOrdering Facility: [facility] Address: [address] [place] [address] Performed By: #### A LLBG ####[facility] LABCLIA [id number] [place] [id number] [place] Oxygen (Bld) [Partial pressure] 110 mm Hg High 85-95 [facility] Comment on above: Order Comment: Speci men Type: ARTERIAL BLOOD SPECIMENOrdering Facility: [facility] Address: [address] [place] [address] Performed By: #### A LLBG ####[facility] LABCLIA [id number] [place] [address] [place] Oxygen adjusted to patient's actual temperature (Bld) [Partial pressure] 106 mmHg High 85-95 [facility] Comment on above: Order Comment: Speci men Type: ARTERIAL BLOOD SPECIMENOrdering Facility: [facility] Address: [address] [place] [address] Performed By: #### A LLBG ####[facility] LABIA [id number] [place] [address] [place] Oxyhemoglobin (BldA) [Mass fraction] 96 % Normal 95-98 [facility] Comment on above: Order Comment: Speci men Type: ARTERIAL BLOOD SPECIMENOrdering Facility: [facility] Address: [address] [place] [address] Performed By: #### A LLBG ####[facility] LABIA [id number] [place] [address] [place] pH (Bld) 7.33 [pH] Low 7.35-7.45 [facility] Comment on above: Order Comment: Speci men Type: ARTERIAL BLOOD SPECIMENOrdering Facility: [facility] Address: [address] [place] [address] Performed By: #### A LLBG ####[facility] LABIA [id number] [place] [address] [place] pH adjusted to patient's actual temperature (Bld) 7.34 Low 7.35-7.45 [facility] Comment on above: Order Comment: Speci men Type: ARTERIAL BLOOD SPECIMENOrdering Facility: [facility] Address: [address] [place] [address] Performed By: #### A LLBG ####[facility] LABIA [id number] [place] [id number] [place] Potassium [Moles/Vol] 4.3 mmol/L Normal 3.5-5.0 [facility] Comment on above: Order Comment: Speci men Type: ARTERIAL BLOOD SPECIMENOrdering Facility: [facility] Address: [facility] [place] [address] Performed By: #### A LLBG ####[facility] LABCLIA [id number] [place] [address] [place] Sodium [Moles/Vol] 139 mmol/L Normal 136-144 [facility] Comment on above: Order Comment: Speci men Type: ARTERIAL BLOOD SPECIMENOrdering Facility: [facility] Address: [address] [place] [address] Performed By: #### A LLBG ####[facility] LABCLIA [id number] [place] [address] [place] Base deficit (BldA) [Moles/Vol] -7 mmol/L Low -2-0 [facility] Comment on above: Order Comment: Speci men Type: ARTERIAL BLOOD SPECIMENOrdering Facility: [facility] Address: [address] [place] [address] Performed By: #### A LLBG ####[facility] LABCLIA [id number] [place] [address] [place] Body temperature 97.52 [degF] Normal [facility] Comment on above: Order Comment: Speci men Type: ARTERIAL BLOOD SPECIMENOrdering Facility: [facility] Address: [address] [place] [address] Performed By: #### A LLBG ####[facility] LABCLIA [id number] [place] [address] [place] Calcium.ionized (Bld) [Mass/Vol] 1.17 mmol/L Normal 1.08-1.30 [facility] Comment on above: Order Comment: Speci men Type: ARTERIAL BLOOD SPECIMENOrdering Facility: [facility] Address: [address] [place] [address] Performed By: #### A LLBG ####[facility] LABCLIA [id number] [place] [address] [place] Calcium.ionized adjusted to pH 7.4 (BldA) [Moles/Vol] 1.13 mmol/L Normal 1.08-1.30 [facility] Comment on above: Order Comment: Speci men Type: ARTERIAL BLOOD SPECIMENOrdering Facility: [facility] Address: [address] [place] [address] Performed By: #### A LLBG ####[facility] LABCLIA [id number] [place] [address] [place] Carboxyhemoglobin (BldA) [Mass fraction] 1.6 % Normal 0.0-2.0 [facility] Comment on above: Order Comment: Speci men Type: ARTERIAL BLOOD SPECIMENOrdering Facility: [facility] Address: [address] [place] [address] Result Comment: Carb oxyhemoglobin Reference Range for Smokers: 2.0-8.0% Performed By: #### A LLBG ####[facility] LABCLIA [id number] [place] [address] [place] CO2 (Bld) [Partial pressure] 33 mm Hg Low 36-46 [facility] Comment on above: Order Comment: Speci men Type: ARTERIAL BLOOD SPECIMENOrdering Facility: [facility] Address: [address] [place] [address] Performed By: #### A LLBG ####[facility] LABCLIA [id number] [place] [id number] [place] CO2 adjusted to patient's actual temperature (Bld) [Partial pressure] 32 mmHg Low 36-46 [facility] Comment on above: Order Comment: Speci men Type: ARTERIAL BLOOD SPECIMENOrdering Facility: [facility] Address: [address] [place] [address] Performed By: #### A LLBG ####[facility] LABCLIA [id number] [address] [place] [address] [place] Glucose [Mass/Vol] 206 mg/dL High 60-105 [facility] Comment on above: Order Comment: Speci men Type: ARTERIAL BLOOD SPECIMENOrdering Facility: [facility] Address: [address] [place] [address] Performed By: #### A LLBG ####[facility] LABCLIA [id number] [place] [address] [place] HCO3 (Bld) [Moles/Vol] 17 mmol/L Low 22-26 [facility] Comment on above: Order Comment: Speci men Type: ARTERIAL BLOOD SPECIMENOrdering Facility: [facility] Address: [address] [place] [address] Performed By: #### A LLBG ####[facility] LABCLIA [id number] [place] [address] [place] Hematocrit (Bld) [Volume fraction] 27.6 % Low 36.0-46.0 [facility] Comment on above: Order Comment: Speci men Type: ARTERIAL BLOOD SPECIMENOrdering Facility: [facility] Address: [address] [place] [address] Performed By: #### A LLBG ####[facility] LABCLIA [id number] [place] [id number] [place] Hemoglobin (Bld) [Mass/Vol] 8.9 g/dL Low 11.5-15.5 [facility] Comment on above: Order Comment: Speci men Type: ARTERIAL BLOOD SPECIMENOrdering Facility: [facility] Address: [address] [place] [address] Performed By: #### A LLBG ####[facility] LABCLIA [id number] [place] [id number] [place] Lactate [Moles/Vol] 5.8 mmol/L High 0.5-2.2 [facility] Comment on above: Order Comment: Speci men Type: ARTERIAL BLOOD SPECIMENOrdering Facility: [facility] Address: [address] [place] [id number] Performed By: #### A LLBG ####[facility] LABCLIA [id number] [address] [address] [place] LITERS 2 Liters/min Normal [facility] Comment on above: Order Comment: Speci men Type: ARTERIAL BLOOD SPECIMENOrdering Facility: [facility] Address: [address] [place] [address] Performed By: #### A LLBG ####[facility] LABCLIA [id number] [place] [id number] [place] Methemoglobin (Bld) [Mass fraction] 0.7 % Normal 0.0-1.5 [facility] Comment on above: Order Comment: Speci men Type: ARTERIAL BLOOD SPECIMENOrdering Facility: [facility] Address: [address] [place] [address] Performed By: #### A LLBG ####[facility] LABCLIA [id number] [place] [id number] [place] O2 THERAPY NC = Nasal Cannula Normal [facility] Comment on above: Order Comment: Speci men Type: ARTERIAL BLOOD SPECIMENOrdering Facility: [facility] Address: [address] [place], [place] [address] Performed By: #### A LLBG ####[facility] LABCLIA [id number] [place] [id number] [place] Oxygen (Bld) [Partial pressure] 127 mm Hg High 85-95 [facility] Comment on above: Order Comment: Speci men Type: ARTERIAL BLOOD SPECIMENOrdering Facility: [facility] Address: [address] [place] [address] Performed By: #### A LLBG ####[facility] LABCLIA [id number] [address] [address] [place] Oxygen adjusted to patient's actual temperature (Bld) [Partial pressure] 124 mmHg High 85-95 [facility] Comment on above: Order Comment: Speci men Type: ARTERIAL BLOOD SPECIMENOrdering Facility: [facility] Address: [address] [place] [address] Performed By: #### A LLBG ####[facility] LABCLIA [id number] [address] [address] [place] Oxyhemoglobin (BldA) [Mass fraction] 97 % Normal 95-98 [facility] Comment on above: Order Comment: Speci men Type: ARTERIAL BLOOD SPECIMENOrdering Facility: [facility] Address: [address] [place] [address] Performed By: #### A LLBG ####[facility] LABCLIA [id number] [address] [address] [place] pH (Bld) 7.33 [pH] Low 7.35-7.45 [facility] Comment on above: Order Comment: Speci men Type: ARTERIAL BLOOD SPECIMENOrdering Facility: [facility] Address: [address] [place] [address] Performed By: #### A LLBG ####[facility] LABCLIA [id number] [place] [id number] [place] pH adjusted to patient's actual temperature (Bld) 7.34 Low 7.35-7.45 [facility] Comment on above: Order Comment: Speci men Type: ARTERIAL BLOOD SPECIMENOrdering Facility: [facility] Address: [address] [place] [address] Performed By: #### A LLBG ####[facility] LABIA [id number] [place] [id number] [place] Potassium [Moles/Vol] 4.1 mmol/L Normal 3.5-5.0 [facility] Comment on above: Order Comment: Speci men Type: ARTERIAL BLOOD SPECIMENOrdering Facility: [facility] Address: [address] [place] [address] Performed By: #### A LLBG ####[facility] LABCLIA [id number] [place] [address] [place] Sodium [Moles/Vol] 140 mmol/L Normal 136-144 [facility] Comment on above: Order Comment: Speci men Type: ARTERIAL BLOOD SPECIMENOrdering Facility: [facility] Address: [address] [place] [address] Performed By: #### A LLBG ####[facility] LABCLIA [id number] [place] [address] [place] ARTERIAL BLOOD GASES WITH IO NIZED MAGNESIUMon 12-12-2024 Base deficit (BldA) [Moles/Vol] -4 mmol/L Low -2-0 [facility] Comment on above: Order Comment: Speci men Type: ARTERIAL BLOOD SPECIMENOrdering Facility: [facility] Address: [address] [place] [address] Performed By: #### A LLMG ####[facility] LABCLIA [id number] [place] [address] [place] Calcium.ionized (Bld) [Mass/Vol] 1.14 mmol/L Normal 1.08-1.30 [facility] Comment on above: Order Comment: Speci men Type: ARTERIAL BLOOD SPECIMENOrdering Facility: [facility] Address: [address] [place] [address] Performed By: #### A LLMG ####[facility] LABCLIA [id number] [place] [address] [place] Calcium.ionized adjusted to pH 7.4 (BldA) [Moles/Vol] 1.12 mmol/L Normal 1.08-1.30 [facility] Comment on above: Order Comment: Speci men Type: ARTERIAL BLOOD SPECIMENOrdering Facility: [facility] Address: [address] [place] [address] Performed By: #### A LLMG ####[facility] LABCLIA [id number] [place] [address] [place] Carboxyhemoglobin (BldA) [Mass fraction] 2.0 % Normal 0.0-2.0 [facility] Comment on above: Order Comment: Speci men Type: ARTERIAL BLOOD SPECIMENOrdering Facility: [facility] Address: [address] [place] [address] Result Comment: Carb oxyhemoglobin Reference Range for Smokers: 2.0-8.0% Performed By: #### A LLMG ####[facility] LABIA [id number] [place] [address] [place] CO2 (Bld) [Partial pressure] 37 mm Hg Normal 36-46 [facility] Comment on above: Order Comment: Speci men Type: ARTERIAL BLOOD SPECIMENOrdering Facility: [facility] Address: [address] [place] [address] Performed By: #### A LLMG ####[facility] LABIA [id number] [place] [address] [place] CO2 adjusted to patient's actual temperature (Bld) [Partial pressure] 37 mmHg Normal 36-46 [facility] Comment on above: Order Comment: Speci men Type: ARTERIAL BLOOD SPECIMENOrdering Facility: [facility] Address: [address] [place] [address] Performed By: #### A LLMG ####[facility] LABIA [id number] [place] [address] [place] Glucose [Mass/Vol] 148 mg/dL High 60-105 [facility] Comment on above: Order Comment: Speci men Type: ARTERIAL BLOOD SPECIMENOrdering Facility: [facility] Address: [address] [place] [address] Performed By: #### A LLMG ####[facility] LABIA [id number] [place] [address] [place] HCO3 (Bld) [Moles/Vol] 20 mmol/L Low 22-26 [facility] Comment on above: Order Comment: Speci men Type: ARTERIAL BLOOD SPECIMENOrdering Facility: [facility] Address: [address] [place] [address] Performed By: #### A LLMG ####[facility] LABIA [id number] [place] [address] [place] Hematocrit (Bld) [Volume fraction] 24.9 % Low 36.0-46.0 [facility] Comment on above: Order Comment: Speci men Type: ARTERIAL BLOOD SPECIMENOrdering Facility: [facility] Address: [address] [place] [address] Performed By: #### A LLMG ####[facility] LABIA [id number] [place] [address] [place] Hemoglobin (Bld) [Mass/Vol] 8.0 g/dL Low 11.5-15.5 [facility] Comment on above: Order Comment: Speci men Type: ARTERIAL BLOOD SPECIMENOrdering Facility: [facility] Address: [address] [place] [address] Performed By: #### A LLMG ####[facility] LABIA [id number] [place] [address] [place] Lactate [Moles/Vol] 3.0 mmol/L High 0.5-2.2 [facility] Comment on above: Order Comment: Speci men Type: ARTERIAL BLOOD SPECIMENOrdering Facility: [facility] Address: [address] [place] [address] Performed By: #### A LLMG ####[facility] LABIA [id number] [place] [address] [place] Magnesium [Moles/Vol] 0.55 mmol/L Normal 0.45-0.60 [facility] Comment on above: Order Comment: Speci men Type: ARTERIAL BLOOD SPECIMENOrdering Facility: [facility] Address: [address] [place] [address] Performed By: #### A LLMG ####[facility] LABCLIA [id number] [place] [address] [place] Methemoglobin (Bld) [Mass fraction] 1.2 % Normal 0.0-1.5 [facility] Comment on above: Order Comment: Speci men Type: ARTERIAL BLOOD SPECIMENOrdering Facility: [facility] Address: [address] [place] [address] Performed By: #### A LLMG ####[facility] LABCLIA [id number] [place] [id number] [place] Oxygen (Bld) [Partial pressure] 144 mm Hg High 85-95 [facility] Comment on above: Order Comment: Speci men Type: ARTERIAL BLOOD SPECIMENOrdering Facility: [facility] Address: [address] [place] [address] Performed By: #### A LLMG ####[facility] LABCLIA [id number] [place] [address] [place] Oxygen adjusted to patient's actual temperature (Bld) [Partial pressure] 144 mmHg High 85-95 [facility] Comment on above: Order Comment: Speci men Type: ARTERIAL BLOOD SPECIMENOrdering Facility: [facility] Address: [address] [place] [address] Performed By: #### A LLMG ####[facility] LABCLIA [id number] [place] [id number] [place] Oxyhemoglobin (BldA) [Mass fraction] 96 % Normal 95-98 [facility] Comment on above: Order Comment: Speci men Type: ARTERIAL BLOOD SPECIMENOrdering Facility: [facility] Address: [address] [place] [address] Performed By: #### A LLMG ####[facility] LABCLIA [id number] [place] [id number] [place] pH (Bld) 7.36 [pH] Normal 7.35-7.45 [facility] Comment on above: Order Comment: Speci men Type: ARTERIAL BLOOD SPECIMENOrdering Facility: [facility] Address: [address] [place] [address] Performed By: #### A LLMG ####[facility] LABCLIA [id number] [address] [place] [address] [place] pH adjusted to patient's actual temperature (Bld) 7.36 Normal 7.35-7.45 [facility] Comment on above: Order Comment: Speci men Type: ARTERIAL BLOOD SPECIMENOrdering Facility: [facility] Address: [address] [place] [address] Performed By: #### A LLMG ####[facility] LABIA [id number] [place] [id number] [place] Potassium [Moles/Vol] 4.3 mmol/L Normal 3.5-5.0 [facility] Comment on above: Order Comment: Speci men Type: ARTERIAL BLOOD SPECIMENOrdering Facility: [facility] Address: [address] [place] [address] Performed By: #### A LLMG ####[facility] LABIA [id number] [place] [id number] [place] Sodium [Moles/Vol] 140 mmol/L Normal 136-144 [facility] Comment on above: Order Comment: Speci men Type: ARTERIAL BLOOD SPECIMENOrdering Facility: [facility] Address: [address] [place] [address] Performed By: #### A LLMG ####[facility] LABIA [id number] [place] [id number] [place] Base deficit (BldA) [Moles/Vol] -4 mmol/L Low -2-0 [facility] Comment on above: Order Comment: Speci men Type: ARTERIAL BLOOD SPECIMENOrdering Facility: [facility] Address: [address] [place] [address] Performed By: #### A LLMG ####[facility] LABIA [id number] [place] [address] [place] Calcium.ionized (Bld) [Mass/Vol] 1.12 mmol/L Normal 1.08-1.30 [facility] Comment on above: Order Comment: Speci men Type: ARTERIAL BLOOD SPECIMENOrdering Facility: [facility] Address: [address] [place] [address] Performed By: #### A LLMG ####[facility] [id number] [place] [address] [place] Calcium.ionized adjusted to pH 7.4 (BldA) [Moles/Vol] 1.10 mmol/L Normal 1.08-1.30 [facility] Comment on above: Order Comment: Speci men Type: ARTERIAL BLOOD SPECIMENOrdering Facility: [facility] Address: [address] [place] [address] Performed By: #### A LLMG ####[facility] [id number] [place] [address] [place] Carboxyhemoglobin (BldA) [Mass fraction] 2.0 % Normal 0.0-2.0 [facility] Comment on above: Order Comment: Speci men Type: ARTERIAL BLOOD SPECIMENOrdering Facility: [facility] Address: [address] [place] [address] Result Comment: Carb oxyhemoglobin Reference Range for Smokers: 2.0-8.0% Performed By: #### A LLMG ####[facility] [id number] [place] [address] [place] CO2 (Bld) [Partial pressure] 37 mm Hg Normal 36-46 [facility] Comment on above: Order Comment: Speci men Type: ARTERIAL BLOOD SPECIMENOrdering Facility: [facility] Address: [address] [place] [address] Performed By: #### A LLMG ####[facility] LABCLIA [id number] [place] [id number] [place] CO2 adjusted to patient's actual temperature (Bld) [Partial pressure] 37 mmHg Normal 36-46 [facility] Comment on above: Order Comment: Speci men Type: ARTERIAL BLOOD SPECIMENOrdering Facility: [facility] Address: [address] [place] [address] Performed By: #### A LLMG ####[facility] LABCLIA [id number] [place] [address] [place] Glucose [Mass/Vol] 145 mg/dL High 60-105 [facility] Comment on above: Order Comment: Speci men Type: ARTERIAL BLOOD SPECIMENOrdering Facility: [facility] Address: [address] [place] [address] Performed By: #### A LLMG ####[facility] LABCLIA [id number] [place] [address] [place] HCO3 (Bld) [Moles/Vol] 21 mmol/L Low 22-26 [facility] Comment on above: Order Comment: Speci men Type: ARTERIAL BLOOD SPECIMENOrdering Facility: [facility] Address: [address] [place] [address] Performed By: #### A LLMG ####[facility] LABCLIA [id number] [place] [id number] [place] Hematocrit (Bld) [Volume fraction] 24.5 % Low 36.0-46.0 [facility] Comment on above: Order Comment: Speci men Type: ARTERIAL BLOOD SPECIMENOrdering Facility: [facility] Address: [address] [place] [address] Performed By: #### A LLMG ####[facility] LABCLIA [id number] [address], [facility]95 [place] Hemoglobin (Bld) [Mass/Vol] 7.9 g/dL Low 11.5-15.5 [facility] Comment on above: Order Comment: Speci men Type: ARTERIAL BLOOD SPECIMENOrdering Facility: [facility] Address: [address] [place] [address] Performed By: #### A LLMG ####[facility] LABCLIA [id number] [place] [id number] [place] Lactate [Moles/Vol] 3.0 mmol/L High 0.5-2.2 [facility] Comment on above: Order Comment: Speci men Type: ARTERIAL BLOOD SPECIMENOrdering Facility: [facility] Address: [address] [place] [address] Performed By: #### A LLMG ####[facility] LABIA [id number] [place] [address] [place] Magnesium [Moles/Vol] 0.55 mmol/L Normal 0.45-0.60 [facility] Comment on above: Order Comment: Speci men Type: ARTERIAL BLOOD SPECIMENOrdering Facility: [facility] Address: [address] [place] [address] Performed By: #### A LLMG ####[facility] LABIA [id number] [place] [address] [place] Methemoglobin (Bld) [Mass fraction] 0.7 % Normal 0.0-1.5 [facility] Comment on above: Order Comment: Speci men Type: ARTERIAL BLOOD SPECIMENOrdering Facility: [facility] Address: [address] [place] [address] Performed By: #### A LLMG ####[facility] LABIA [id number] [place] [id number] [place] Oxygen (Bld) [Partial pressure] 183 mm Hg High 85-95 [facility] Comment on above: Order Comment: Speci men Type: ARTERIAL BLOOD SPECIMENOrdering Facility: [facility] Address: [address] [place], [place] [id number] Performed By: #### A LLMG ####[facility] LABCLIA [id number] [address] [address] [place] Oxygen adjusted to patient's actual temperature (Bld) [Partial pressure] 183 mmHg High 85-95 [facility] Comment on above: Order Comment: Speci men Type: ARTERIAL BLOOD SPECIMENOrdering Facility: [facility] Address: [address] [place] [address] Performed By: #### A LLMG ####[facility] LABCLIA [id number] [place] [id number] [place] Oxyhemoglobin (BldA) [Mass fraction] 97 % Normal 95-98 [facility] Comment on above: Order Comment: Speci men Type: ARTERIAL BLOOD SPECIMENOrdering Facility: [facility] Address: [address] [place] [address] Performed By: #### A LLMG ####[facility] LABIA [id number] [place] [address] [place] pH (Bld) 7.36 [pH] Normal 7.35-7.45 [facility] Comment on above: Order Comment: Speci men Type: ARTERIAL BLOOD SPECIMENOrdering Facility: [facility] Address: [address] [place] [address] Performed By: #### A LLMG ####[facility] LABCLIA [id number] [place] [address] [place] pH adjusted to patient's actual temperature (Bld) 7.36 Normal 7.35-7.45 [facility] Comment on above: Order Comment: Speci men Type: ARTERIAL BLOOD SPECIMENOrdering Facility: [facility] Address: [address] [place] [address] Performed By: #### A LLMG ####[facility] LABCLIA [id number] [place] [id number] [place] Potassium [Moles/Vol] 4.3 mmol/L Normal 3.5-5.0 [facility] Comment on above: Order Comment: Speci men Type: ARTERIAL BLOOD SPECIMENOrdering Facility: [facility] Address: [address] [place] [address] Performed By: #### A LLMG ####[facility] LABIA [id number] [place] [address] [place] Sodium [Moles/Vol] 139 mmol/L Normal 136-144 [facility] Comment on above: Order Comment: Speci men Type: ARTERIAL BLOOD SPECIMENOrdering Facility: [facility] Address: [address] [place] [address] Performed By: #### A LLMG ####[facility] LABIA [id number] [place] [address] [place] Base deficit (BldA) [Moles/Vol] -5 mmol/L Low -2-0 [facility] Comment on above: Order Comment: Speci men Type: ARTERIAL BLOOD SPECIMENOrdering Facility: [facility] Address: [address] [place] [address] Performed By: #### A LLMG ####[facility] LABIA [id number] [place] [address] [place] Calcium.ionized (Bld) [Mass/Vol] 1.20 mmol/L Normal 1.08-1.30 [facility] Comment on above: Order Comment: Speci men Type: ARTERIAL BLOOD SPECIMENOrdering Facility: [facility] Address: [address] [place] [address] Performed By: #### A LLMG ####[facility] LABIA [id number] [place] [address] [place] Calcium.ionized adjusted to pH 7.4 (BldA) [Moles/Vol] 1.17 mmol/L Normal 1.08-1.30 [facility] Comment on above: Order Comment: Speci men Type: ARTERIAL BLOOD SPECIMENOrdering Facility: [facility] Address: [address] [place] [address] Performed By: #### A LLMG ####[facility] LABCLIA [id number] [place] [address] [place] Carboxyhemoglobin (BldA) [Mass fraction] 2.1 % High 0.0-2.0 [facility] Comment on above: Order Comment: Speci men Type: ARTERIAL BLOOD SPECIMENOrdering Facility: [facility] Address: [address] [place] [address] Result Comment: Carb oxyhemoglobin Reference Range for Smokers: 2.0-8.0% Performed By: #### A LLMG ####[facility] LABCLIA [id number] [place] [address] [place] CO2 (Bld) [Partial pressure] 37 mm Hg Normal 36-46 [facility] Comment on above: Order Comment: Speci men Type: ARTERIAL BLOOD SPECIMENOrdering Facility: [facility] Address: [address] [place] [address] Performed By: #### A LLMG ####[facility] LABCLIA [id number] [address] [place] CO2 adjusted to patient's actual temperature (Bld) [Partial pressure] 37 mmHg Normal 36-46 [facility] Comment on above: Order Comment: Speci men Type: ARTERIAL BLOOD SPECIMENOrdering Facility: [facility] Address: [address] [place] [address] Performed By: #### A LLMG ####[facility] LABCLIA [id number] [place] [id number] [place] Glucose [Mass/Vol] 149 mg/dL High 60-105 [facility] Comment on above: Order Comment: Speci men Type: ARTERIAL BLOOD SPECIMENOrdering Facility: [facility] Address: [address] [place] [address] Performed By: #### A LLMG ####[facility] LABCLIA [id number] [place] [id number] [place] HCO3 (Bld) [Moles/Vol] 19 mmol/L Low 22-26 [facility] Comment on above: Order Comment: Speci men Type: ARTERIAL BLOOD SPECIMENOrdering Facility: [facility] Address: [address] [place] [address] Performed By: #### A LLMG ####[facility] LABCLIA [id number] [place] [address] [place] Hematocrit (Bld) [Volume fraction] 27.8 % Low 36.0-46.0 [facility] Comment on above: Order Comment: Speci men Type: ARTERIAL BLOOD SPECIMENOrdering Facility: [facility] Address: [address] [place] [address] Performed By: #### A LLMG ####[facility] LABIA [id number] [place] [address] [place] Hemoglobin (Bld) [Mass/Vol] 9.0 g/dL Low 11.5-15.5 [facility] Comment on above: Order Comment: Speci men Type: ARTERIAL BLOOD SPECIMENOrdering Facility: [facility] Address: [address] [place] [address] Performed By: #### A LLMG ####[facility] LABCLIA [id number] [place] [address] [place] Lactate [Moles/Vol] 3.3 mmol/L High 0.5-2.2 [facility] Comment on above: Order Comment: Speci men Type: ARTERIAL BLOOD SPECIMENOrdering Facility: [facility] Address: [address] [place] [address] Performed By: #### A LLMG ####[facility] LABCLIA [id number] [place] [address] [place] Magnesium [Moles/Vol] 0.63 mmol/L High 0.45-0.60 [facility] Comment on above: Order Comment: Speci men Type: ARTERIAL BLOOD SPECIMENOrdering Facility: [facility] Address: [address] [place], [place] [address] Performed By: #### A LLMG ####[facility] LABCLIA [id number] [place] [id number] [place] Methemoglobin (Bld) [Mass fraction] 0.4 % Normal 0.0-1.5 [facility] Comment on above: Order Comment: Speci men Type: ARTERIAL BLOOD SPECIMENOrdering Facility: [facility] Address: [address] [place], [place] [id number] Performed By: #### A LLMG ####[facility] LABCLIA [id number] [place] [id number] [place] Oxygen (Bld) [Partial pressure] 185 mm Hg High 85-95 [facility] Comment on above: Order Comment: Speci men Type: ARTERIAL BLOOD SPECIMENOrdering Facility: [facility] Address: [address] [place] [address] Performed By: #### A LLMG ####[facility] LABCLIA [id number] [place] [id number] [place] Oxygen adjusted to patient's actual temperature (Bld) [Partial pressure] 185 mmHg High 85-95 [facility] Comment on above: Order Comment: Speci men Type: ARTERIAL BLOOD SPECIMENOrdering Facility: [facility] Address: [address] [place], [place] [id number] Performed By: #### A LLMG ####[facility] LABCLIA [id number] [address] [place] [address] [place] Oxyhemoglobin (BldA) [Mass fraction] 97 % Normal 95-98 [facility] Comment on above: Order Comment: Speci men Type: ARTERIAL BLOOD SPECIMENOrdering Facility: [facility] Address: [address] [place], [place] [address] Performed By: #### A LLMG ####[facility] LABCLIA [id number] [place] [address] [place] pH (Bld) 7.35 [pH] Normal 7.35-7.45 [facility] Comment on above: Order Comment: Speci men Type: ARTERIAL BLOOD SPECIMENOrdering Facility: [facility] Address: [address] [place] [address] Performed By: #### A LLMG ####[facility] LABCLIA [id number] [place] [address] [place] pH adjusted to patient's actual temperature (Bld) 7.35 Normal 7.35-7.45 [facility] Comment on above: Order Comment: Speci men Type: ARTERIAL BLOOD SPECIMENOrdering Facility: [facility] Address: [address] [place] [address] Performed By: #### A LLMG ####[facility] LABCLIA [id number] [place] [address] [place] Potassium [Moles/Vol] 4.7 mmol/L Normal 3.5-5.0 [facility] Comment on above: Order Comment: Speci men Type: ARTERIAL BLOOD SPECIMENOrdering Facility: [facility] Address: [address] [place] [address] Performed By: #### A LLMG ####[facility] LABCLIA [id number] [place] [address] [place] Sodium [Moles/Vol] 138 mmol/L Normal 136-144 [facility] Comment on above: Order Comment: Speci men Type: ARTERIAL BLOOD SPECIMENOrdering Facility: [facility] Address: [address] [place] [address] Performed By: #### A LLMG ####[facility] LABCLIA [id number] [place] [id number] [place] Base deficit (BldA) [Moles/Vol] -4 mmol/L Low -2-0 [facility] Comment on above: Order Comment: Speci men Type: ARTERIAL BLOOD SPECIMENOrdering Facility: [facility] Address: [address] [place] [address] Performed By: #### A LLMG ####[facility] [id number] [place] [address] [place] Calcium.ionized (Bld) [Mass/Vol] 1.23 mmol/L Normal 1.08-1.30 [facility] Comment on above: Order Comment: Speci men Type: ARTERIAL BLOOD SPECIMENOrdering Facility: [facility] Address: [address] [place] [address] Performed By: #### A LLMG ####[facility] [id number] [place] [address] [place] Calcium.ionized adjusted to pH 7.4 (BldA) [Moles/Vol] 1.20 mmol/L Normal 1.08-1.30 [facility] Comment on above: Order Comment: Speci men Type: ARTERIAL BLOOD SPECIMENOrdering Facility: [facility] Address: [address] [place] [address] Performed By: #### A LLMG ####[facility] [id number] [place] [address] [place] Carboxyhemoglobin (BldA) [Mass fraction] 2.1 % High 0.0-2.0 [facility] Comment on above: Order Comment: Speci men Type: ARTERIAL BLOOD SPECIMENOrdering Facility: [facility] Address: [address] [place] [address] Result Comment: Carb oxyhemoglobin Reference Range for Smokers: 2.0-8.0% Performed By: #### A LLMG ####[facility] [id number] [place] [address] [place] CO2 (Bld) [Partial pressure] 37 mm Hg Normal 36-46 [facility] Comment on above: Order Comment: Speci men Type: ARTERIAL BLOOD SPECIMENOrdering Facility: [facility] Address: [address] [place] [address] Performed By: #### A LLMG ####[facility] LABCLIA [id number] [place] [address] [place] CO2 adjusted to patient's actual temperature (Bld) [Partial pressure] 37 mmHg Normal 36-46 [facility] Comment on above: Order Comment: Speci men Type: ARTERIAL BLOOD SPECIMENOrdering Facility: [facility] Address: [address] [place] [address] Performed By: #### A LLMG ####[facility] LABCLIA [id number] [place] [address] [place] Glucose [Mass/Vol] 154 mg/dL High 60-105 [facility] Comment on above: Order Comment: Speci men Type: ARTERIAL BLOOD SPECIMENOrdering Facility: [facility] Address: [address] [place] [address] Performed By: #### A LLMG ####[facility] LABCLIA [id number] [place] [address] [place] HCO3 (Bld) [Moles/Vol] 20 mmol/L Low 22-26 [facility] Comment on above: Order Comment: Speci men Type: ARTERIAL BLOOD SPECIMENOrdering Facility: [facility] Address: [address] [place] [address] Performed By: #### A LLMG ####[facility] LABCLIA [id number] [place] [address] [place] Hematocrit (Bld) [Volume fraction] 29.2 % Low 36.0-46.0 [facility] Comment on above: Order Comment: Speci men Type: ARTERIAL BLOOD SPECIMENOrdering Facility: [facility] Address: [address] [place] [address] Performed By: #### A LLMG ####[facility] LABCLIA [id number] [place] [address] [place] Hemoglobin (Bld) [Mass/Vol] 9.4 g/dL Low 11.5-15.5 [facility] Comment on above: Order Comment: Speci men Type: ARTERIAL BLOOD SPECIMENOrdering Facility: [facility] Address: [address] [place] [address] Performed By: #### A LLMG ####[facility] LABCLIA [id number] [place] [address] [place] Lactate [Moles/Vol] 2.2 mmol/L Normal 0.5-2.2 [facility] Comment on above: Order Comment: Speci men Type: ARTERIAL BLOOD SPECIMENOrdering Facility: [facility] Address: [address] [place] [address] Performed By: #### A LLMG ####[facility] LABIA [id number] [place] [address] [place] Magnesium [Moles/Vol] 0.67 mmol/L High 0.45-0.60 [facility] Comment on above: Order Comment: Speci men Type: ARTERIAL BLOOD SPECIMENOrdering Facility: [facility] Address: [address] [place] [address] Performed By: #### A LLMG ####[facility] LABIA [id number] [place] [address] [place] Methemoglobin (Bld) [Mass fraction] 0.4 % Normal 0.0-1.5 [facility] Comment on above: Order Comment: Speci men Type: ARTERIAL BLOOD SPECIMENOrdering Facility: [facility] Address: [address] [place] [address] Performed By: #### A LLMG ####[facility] LABIA [id number] [place] [id number] [place] Oxygen (Bld) [Partial pressure] 209 mm Hg High 85-95 [facility] Comment on above: Order Comment: Speci men Type: ARTERIAL BLOOD SPECIMENOrdering Facility: [facility] Address: [address] [place] [address] Performed By: #### A LLMG ####[facility] LABCLIA [id number] [place] [address] [place] Oxygen adjusted to patient's actual temperature (Bld) [Partial pressure] 209 mmHg High 85-95 [facility] Comment on above: Order Comment: Speci men Type: ARTERIAL BLOOD SPECIMENOrdering Facility: [facility] Address: [address] [place] [address] Performed By: #### A LLMG ####[facility] LABCLIA [id number] [place] [address] [place] Oxyhemoglobin (BldA) [Mass fraction] 98 % Normal 95-98 [facility] Comment on above: Order Comment: Speci men Type: ARTERIAL BLOOD SPECIMENOrdering Facility: [facility] Address: [address] [place] [address] Performed By: #### A LLMG ####[facility] LABIA [id number] [place] [address] [place] pH (Bld) 7.35 [pH] Normal 7.35-7.45 [facility] Comment on above: Order Comment: Speci men Type: ARTERIAL BLOOD SPECIMENOrdering Facility: [facility] Address: [address] [place] [address] Performed By: #### A LLMG ####[facility] LABCLIA [id number] [place] [address] [place] pH adjusted to patient's actual temperature (Bld) 7.35 Normal 7.35-7.45 [facility] Comment on above: Order Comment: Speci men Type: ARTERIAL BLOOD SPECIMENOrdering Facility: [facility] Address: [address] [place] [address] Performed By: #### A LLMG ####[facility] LABCLIA [id number] [place] [id number] [place] Potassium [Moles/Vol] 4.7 mmol/L Normal 3.5-5.0 [facility] Comment on above: Order Comment: Speci men Type: ARTERIAL BLOOD SPECIMENOrdering Facility: [facility] Address: [address] [place] [address] Performed By: #### A LLMG ####[facility] LABIA [id number] [place] [address] [place] Sodium [Moles/Vol] 136 mmol/L Normal 136-144 [facility] Comment on above: Order Comment: Speci men Type: ARTERIAL BLOOD SPECIMENOrdering Facility: [facility] Address: [address] [place] [address] Performed By: #### A LLMG ####[facility] LABIA [id number] [place] [address] [place] Base deficit (BldA) [Moles/Vol] -4 mmol/L Low -2-0 [facility] Comment on above: Order Comment: Speci men Type: ARTERIAL BLOOD SPECIMENOrdering Facility: [facility] Address: [address] [place] [address] Performed By: #### A LLMG ####[facility] LABIA [id number] [place] [address] [place] Calcium.ionized (Bld) [Mass/Vol] 1.28 mmol/L Normal 1.08-1.30 [facility] Comment on above: Order Comment: Speci men Type: ARTERIAL BLOOD SPECIMENOrdering Facility: [facility] Address: [address] [place] [address] Performed By: #### A LLMG ####[facility] LABIA [id number] [place] [address] [place] Calcium.ionized adjusted to pH 7.4 (BldA) [Moles/Vol] 1.22 mmol/L Normal 1.08-1.30 [facility] Comment on above: Order Comment: Speci men Type: ARTERIAL BLOOD SPECIMENOrdering Facility: [facility] Address: [address] [place] [address] Performed By: #### A LLMG ####[facility] LABCLIA [id number] [place] [address] [place] Carboxyhemoglobin (BldA) [Mass fraction] 1.9 % Normal 0.0-2.0 [facility] Comment on above: Order Comment: Speci men Type: ARTERIAL BLOOD SPECIMENOrdering Facility: [facility] Address: [address] [place] [address] Result Comment: Carb oxyhemoglobin Reference Range for Smokers: 2.0-8.0% Performed By: #### A LLMG ####[facility] LABCLIA [id number] [place] [address] [place] CO2 (Bld) [Partial pressure] 43 mm Hg Normal 36-46 [facility] Comment on above: Order Comment: Speci men Type: ARTERIAL BLOOD SPECIMENOrdering Facility: [facility] Address: [address] [place] [address] Performed By: #### A LLMG ####[facility] LABCLIA [id number] [place] [address] [place] CO2 adjusted to patient's actual temperature (Bld) [Partial pressure] 43 mmHg Normal 36-46 [facility] Comment on above: Order Comment: Speci men Type: ARTERIAL BLOOD SPECIMENOrdering Facility: [facility] Address: [address] [place] [address] Performed By: #### A LLMG ####[facility] LABCLIA [id number] [place] [address] [place] Glucose [Mass/Vol] 109 mg/dL High 60-105 [facility] Comment on above: Order Comment: Speci men Type: ARTERIAL BLOOD SPECIMENOrdering Facility: [facility] Address: [address] [place] [address] Performed By: #### A LLMG ####[facility] LABCLIA [id number] [address] [address] [place] HCO3 (Bld) [Moles/Vol] 22 mmol/L Normal 22-26 [facility] Comment on above: Order Comment: Speci men Type: ARTERIAL BLOOD SPECIMENOrdering Facility: [facility] Address: [address] [place] [address] Performed By: #### A LLMG ####[facility] LABCLIA [id number] [place] [address] [place] Hematocrit (Bld) [Volume fraction] 27.5 % Low 36.0-46.0 [facility] Comment on above: Order Comment: Speci men Type: ARTERIAL BLOOD SPECIMENOrdering Facility: [facility] Address: [address] [place] [address] Performed By: #### A LLMG ####[facility] LABIA [id number] [place] [address] [place] Hemoglobin (Bld) [Mass/Vol] 8.9 g/dL Low 11.5-15.5 [facility] Comment on above: Order Comment: Speci men Type: ARTERIAL BLOOD SPECIMENOrdering Facility: [facility] Address: [address] [place] [address] Performed By: #### A LLMG ####[facility] LABIA [id number] [place] [address] [place] Lactate [Moles/Vol] 1.5 mmol/L Normal 0.5-2.2 [facility] Comment on above: Order Comment: Speci men Type: ARTERIAL BLOOD SPECIMENOrdering Facility: [facility] Address: [address] [place] [address] Performed By: #### A LLMG ####[facility] LABCLIA [id number] [place] [id number] [place] Magnesium [Moles/Vol] 0.67 mmol/L High 0.45-0.60 [facility] Comment on above: Order Comment: Speci men Type: ARTERIAL BLOOD SPECIMENOrdering Facility: [facility] Address: [address] [place] [address] Performed By: #### A LLMG ####[facility] LABCLIA [id number] [address] [address] [place] Methemoglobin (Bld) [Mass fraction] 1.3 % Normal 0.0-1.5 [facility] Comment on above: Order Comment: Speci men Type: ARTERIAL BLOOD SPECIMENOrdering Facility: [facility] Address: [address] [place] [address] Performed By: #### A LLMG ####[facility] LABCLIA [id number] [place] [id number] [place] Oxygen (Bld) [Partial pressure] 178 mm Hg High 85-95 [facility] Comment on above: Order Comment: Speci men Type: ARTERIAL BLOOD SPECIMENOrdering Facility: [facility] Address: [address] [place] [address] Performed By: #### A LLMG ####[facility] LABCLIA [id number] [place] [id number] [place] Oxygen adjusted to patient's actual temperature (Bld) [Partial pressure] 178 mmHg High 85-95 [facility] Comment on above: Order Comment: Speci men Type: ARTERIAL BLOOD SPECIMENOrdering Facility: [facility] Address: [address] [place] [address] Performed By: #### A LLMG ####[facility] LABCLIA [id number] [place] [id number] [place] Oxyhemoglobin (BldA) [Mass fraction] 96 % Normal 95-98 [facility] Comment on above: Order Comment: Speci men Type: ARTERIAL BLOOD SPECIMENOrdering Facility: [facility] Address: [address] [place], [place] [address] Performed By: #### A LLMG ####[facility] LABCLIA [id number] [address] [address] [place] pH (Bld) 7.32 [pH] Low 7.35-7.45 [facility] Comment on above: Order Comment: Speci men Type: ARTERIAL BLOOD SPECIMENOrdering Facility: [facility] Address: [address] [place] [address] Performed By: #### A LLMG ####[facility] LABCLIA [id number] [address] [address] [place] pH adjusted to patient's actual temperature (Bld) 7.32 Low 7.35-7.45 [facility] Comment on above: Order Comment: Speci men Type: ARTERIAL BLOOD SPECIMENOrdering Facility: [facility] Address: [address] [place] [address] Performed By: #### A LLMG ####[facility] LABIA [id number] [place] [id number] [place] Potassium [Moles/Vol] 4.2 mmol/L Normal 3.5-5.0 [facility] Comment on above: Order Comment: Speci men Type: ARTERIAL BLOOD SPECIMENOrdering Facility: [facility] Address: [address] [place] [address] Performed By: #### A LLMG ####[facility] LABCLIA [id number] [place] [id number] [place] Sodium [Moles/Vol] 138 mmol/L Normal 136-144 [facility] Comment on above: Order Comment: Speci men Type: ARTERIAL BLOOD SPECIMENOrdering Facility: [facility] Address: [address] [place] [address] Performed By: #### A LLMG ####[facility] LABCLIA [id number] [address] [address] [place] BRIEF OP NOTon 12-12-2024 BRIEF OP NOT Normal [facility] CASE MANAGEMon 12-12-2024 CASE MANAGEM Normal [facility] CBC panel Auto (Bld)on 12-12 Erythrocyte distribution width (RBC) [Ratio] 22.2 % High 11.5-15.0 [facility] Comment on above: Order Comment: Speci men Type: BLOOD SPECIMENOrdering Facility: [facility] Address: [address] [place] [address] Performed By: #### 5 8410-2 ####[facility] LABCLIA [id number] [place] [address] [place] Hematocrit (Bld) [Volume fraction] 28.3 % Low 36.0-46.0 [facility] Comment on above: Order Comment: Speci men Type: BLOOD SPECIMENOrdering Facility: [facility] Address: [address] [place] [address] Performed By: #### 5 8410-2 ####[facility] LABCLIA [id number] [place] [address] [place] Hemoglobin (Bld) [Mass/Vol] 8.6 g/dL Low 11.5-15.5 [facility] Comment on above: Order Comment: Speci men Type: BLOOD SPECIMENOrdering Facility: [facility] Address: [address] [place] [address] Performed By: #### 5 8410-2 ####[facility] LABIA [id number] [place] [address] [place] MCH (RBC) [Entitic mass] 26.4 pg Normal 26.0-34.0 [facility] Comment on above: Order Comment: Speci men Type: BLOOD SPECIMENOrdering Facility: [facility] Address: [address] [place] [address] Performed By: #### 5 8410-2 ####[facility] LABCLIA [id number] [place] [id number] [place] MCHC (RBC) [Mass/Vol] 30.4 g/dL Low 30.5-36.0 [facility] Comment on above: Order Comment: Speci men Type: BLOOD SPECIMENOrdering Facility: [facility] Address: [address] [place] [address] Performed By: #### 5 8410-2 ####[facility] LABIA [id number] [place] [address] [place] MCV (RBC) [Entitic vol] 86.8 fL Normal 80.0-100.0 [facility] Comment on above: Order Comment: Speci men Type: BLOOD SPECIMENOrdering Facility: [facility] Address: [address] [place] [address] Performed By: #### 5 8410-2 ####[facility] LABIA [id number] [place] [address] [place] Nucleated RBC (Bld) [#/Vol] 0.02 10*3/uL High <0.01 [facility] Comment on above: Order Comment: Speci men Type: BLOOD SPECIMENOrdering Facility: [facility] Address: [address] [place] [address] Performed By: #### 5 8410-2 ####[facility] LABIA [id number] [place] [address] [place] Platelet mean volume (Bld) [Entitic vol] 9.3 fL Normal 9.0-12.7 [facility] Comment on above: Order Comment: Speci men Type: BLOOD SPECIMENOrdering Facility: [facility] Address: [address] [place] [address] Performed By: #### 5 8410-2 ####[facility] LABIA [id number] [place] [address] [place] Platelets (Bld) [#/Vol] 292 10*3/uL Normal 150-400 [facility] Comment on above: Order Comment: Speci men Type: BLOOD SPECIMENOrdering Facility: [facility] Address: [address] [place] [address] Performed By: #### 5 8410-2 ####[facility] LABIA [id number] [place] [id number] [place] RBC (Bld) [#/Vol] 3.26 10*6/uL Low 3.90-5.20 [facility] Comment on above: Order Comment: Speci men Type: BLOOD SPECIMENOrdering Facility: [facility] Address: [address] [place] [address] Performed By: #### 5 8410-2 ####[facility] LABIA [id number] [place] [id number] [place] WBC (Bld) [#/Vol] 6.93 10*3/uL Normal 3.70-11.00 [facility] Comment on above: Order Comment: Speci men Type: BLOOD SPECIMENOrdering Facility: [facility] Address: [address] [place] [address] Performed By: #### 5 8410-2 ####[facility] LABIA [id number] [place] [id number] [place] Comprehensive metabolic 2000 panelon 12-12-2024 Albumin [Mass/Vol] 3.2 g/dL Low 3.9-4.9 [facility] Comment on above: Order Comment: Speci men Type: BLOOD SPECIMENOrdering Facility: [facility] Address: [address] [place] [address] Performed By: #### 2 4323-8, , 277-1 ####[facility] LABIA [id number] [place] [id number] [place] ALP [Catalytic activity/Vol] 173 U/L High 34-123 [facility] Comment on above: Order Comment: Speci men Type: BLOOD SPECIMENOrdering Facility: [facility] Address: [address] [place] [address] Performed By: #### 2 4323-8, , 2776-06 ####[facility] LABCLIA [id number] [address] [address] [place] ALT [Catalytic activity/Vol] 41 U/L High 7-38 [facility] Comment on above: Order Comment: Speci men Type: BLOOD SPECIMENOrdering Facility: [facility] Address: [address] [place] [address] Performed By: #### 2 4323-8, , 2776-06 ####[facility] LABIA [id number] [address] [address] [place] Anion gap [Moles/Vol] 12 mmol/L Normal 8-15 [facility] Comment on above: Order Comment: Speci men Type: BLOOD SPECIMENOrdering Facility: [facility] Address: [address] [place] [address] Performed By: #### 2 4323-8, , 2776-06 ####[facility] LABIA [id number] [place] [id number] [place] AST [Catalytic activity/Vol] 33 U/L Normal 13-35 [facility] Comment on above: Order Comment: Speci men Type: BLOOD SPECIMENOrdering Facility: [facility] Address: [address] [place] [address] Result Comment: Resu lts may be falsely increased due to interference from hemolysis. Suggest reorder as clinically indicated. Performed By: #### 2 4323-8, , 2776-06 ####[facility] [id number] [place] [id number] [place] Bilirubin [Mass/Vol] 0.5 mg/dL Normal 0.2-1.3 [facility] Comment on above: Order Comment: Speci men Type: BLOOD SPECIMENOrdering Facility: [facility] Address: [address] [place] [address] Performed By: #### 2 43238, , 2776-06 ####[facility] LABCLIA [id number] [address] [address] [place] Calcium [Mass/Vol] 8.7 mg/dL Normal 8.5-10.2 [facility] Comment on above: Order Comment: Speci men Type: BLOOD SPECIMENOrdering Facility: [facility] Address: [address] [place] [address] Performed By: #### 2 432-8, , 2776-06 ####[facility] LABCLIA [id number] [place] [id number] [place] Chloride [Moles/Vol] 105 mmol/L Normal 98-107 [facility] Comment on above: Order Comment: Speci men Type: BLOOD SPECIMENOrdering Facility: [facility] Address: [address] [place] [address] Performed By: #### 2 432-8, , 2776-06 ####[facility] LABCLIA [id number] [place] [id number] [place] CO2 [Moles/Vol] 20 mmol/L Low 22-30 [facility] Comment on above: Order Comment: Speci men Type: BLOOD SPECIMENOrdering Facility: [facility] Address: [address] [place] [address] Performed By: #### 2 4323-8, , 2776-06 ####[facility] LABCLIA [id number] [place] [id number] [place] Creatinine [Mass/Vol] 0.82 mg/dL Normal 0.58-0.96 [facility] Comment on above: Order Comment: Speci men Type: BLOOD SPECIMENOrdering Facility: [facility] Address: [address] [place], [place] [address] Performed By: #### 2 4323-8, , 2776-06 ####[facility] LABCLIA [id number] [place] [address] [place] Creatinine and Glomerular filtration rate.predicted panel (S/P/Bld) 92 mL/min/1.73m??? Normal >=60 [facility] Comment on above: Order Comment: Dora finch Type: BLOOD SPECIMENOrdering Facility: [facility] Address: [address] [place] [address] Result Comment: Zeny mated Glomerular Filtration Rate [...] actual GFR. Performed By: #### 2 4323-8, 02588-8, 7- ####[facility] [id number] [place] [address] [place] Glucose [Mass/Vol] 100 mg/dL High 74-99 [facility] Comment on above: Order Comment: Dora finch Type: BLOOD SPECIMENOrdering Facility: [facility] Address: [address] [place] [address] Result Comment: The [place] Diabetes Association (ADA) provides guidance for cutoff [...] Standards of Medical Care in Diabetes 2016, [place] [employer]. Diabetes Care. 2016.39(Suppl 1). Performed By: #### 2 4323-8, 35906-0, 2777-1 ####[facility] LABIA [id number] [address] [address] [place] Potassium [Moles/Vol] 4.4 mmol/L Normal 3.7-5.1 [facility] Comment on above: Order Comment: Speci men Type: BLOOD SPECIMENOrdering Facility: [facility] Address: [address] [place] [address] Performed By: #### 2 4323-8, , 2776-06 ####[facility] LABCLIA [id number] [place] [id number] [place] Protein [Mass/Vol] 6.4 g/dL Normal 6.3-8.0 [facility] Comment on above: Order Comment: Speci men Type: BLOOD SPECIMENOrdering Facility: [facility] Address: [address] [place] [address] Performed By: #### 2 432-8, , 2776-06 ####[facility] LABCLIA [id number] [place] [id number] [place] Sodium [Moles/Vol] 137 mmol/L Normal 136-144 [facility] Comment on above: Order Comment: Speci men Type: BLOOD SPECIMENOrdering Facility: [facility] Address: [address] [place] [address] Performed By: #### 2 432-8, , 2776-06 ####[facility] LABCLIA [id number] [address], [facility] [place] Urea nitrogen [Mass/Vol] 20 mg/dL Normal 7-21 [facility] Comment on above: Order Comment: Speci men Type: BLOOD SPECIMENOrdering Facility: [facility] Address: [address] [place], [place] [address] Performed By: #### 2 4323-8, , 2776-06 ####[facility] LABCLIA [id number] [address] [place] [address] [place] Lactate (Bld) [Moles/Vol]on 12-12-2024 Lactate [Moles/Vol] 5.2 mmol/L High 0.5-2.2 [facility] Comment on above: Order Comment: Speci men Type: BLOOD SPECIMENOrdering Facility: [facility] Address: [address] [place] [address] Performed By: #### 3 2693-4 ####[facility] LABIA [id number] [place] [address] [place] Magnesium SerPl-mCncon 12-12 Magnesium [Mass/Vol] 1.8 mg/dL Normal 1.7-2.3 [facility] Comment on above: Order Comment: Speci men Type: BLOOD SPECIMENOrdering Facility: [facility] Address: [address] [place] [address] Performed By: #### 2 4323-8, 89578-1, 2777-1 ####[facility] [id number] [place] [address] [place] OPERATIVE NOon 12-12-2024 OPERATIVE NO Normal [facility] PTT, ANTICOAGULANT THERAPYon 12-12-2024 aPTT Coag (PPP) [Time] 22.2 s Low 23.0-32.4 [facility] Comment on above: Order Comment: Speci men Type: BLOOD SPECIMENOrdering Facility: [facility] Address: [address] [place] [address] Performed By: #### P TTAC ####[facility] [id number] [place] [address] [place] Pathology biopsy report Stan (Tiss)on 12-12-2024 AP DISCLAIMER Normal [facility] Comment on above: Order Comment: Speci men Type: TISSUE SPECIMENOrdering Facility: [facility] Address: [address] [place] [address] Result Comment: Billie cardenas Developed Test (LDT) Disclaimer:Performance characteristics of immunohistochemical, immunofluorescent, and chromogenic in-situ hybridization tests have been determined by the performing laboratory [facility] Medicine Department ([facility], [facility], [facility], [facility], [facility], [facility], or [facility]) in a manner consistent with CLIA requirements. One or more of these tests may not have been cleared or approved by the FDA. [facility] is regulated under CLIA as qualified to perform high-complexity testing. These tests are used for clinical purposes. These should not be regarded as investigational or for research. Positive and negative controls stain appropriately. Performed By: #### 6 6121-5 ####[facility] LABIA [id number] [address] [place] CASE REPORT Normal [facility] Comment on above: Order Comment: Speci men Type: TISSUE SPECIMENOrdering Facility: [facility] Address: [address] [place] [address] Result Comment: Surg ical Pathology Report Case: [id number] Provider: Kirit Devine MD Collected: 12/12/2024 10:48 AMOrdering Location: Admitting Received: 12/12/2024 03:06 PMPathologist: Kae Manning MDSpecimens: A) - Omentum, Resection, omentum B) - Small Bowel, Ileostomy, Loop ileostomy C) - Soft Tissue (Not otherwise specified), Peristomal Fat Performed By: #### 6 6121-5 ####[facility] LABIA [id number] [place] [id number] [place] CLINICAL HISTORY Normal [facility] Comment on above: Order Comment: Speci men Type: TISSUE SPECIMENOrdering Facility: [facility] Address: [address] [place] [address] Result Comment: Pre- op diagnosis:High output ileostomy (HCC) [R19.8, Z93.2] Performed By: #### 6 6121-5 ####[facility] LABCLIA [id number] [address] [place] FINAL DIAGNOSIS Normal [facility] Comment on above: Order Comment: Speci men Type: TISSUE SPECIMENOrdering Facility: [facility] Address: [address] [place] [address] Result Comment: A. O mentum, omentectomy:- Benign mature adipose tissue.B. Ileum, ileostomy takedown:- Enterocutaneous tissue with histologic features consistent with an ileostomy site.C. Soft tissue, peristomal fat, excision:- Fibroadipose tissue with fat necrosis. at 1624 EDT Performed By: #### 6 6121-5 ####[facility] LABCLIA [id number] [address] OF [facility] FINAL PERFORMING LAB Normal [facility] Comment on above: Order Comment: Speci men Type: TISSUE SPECIMENOrdering Facility: [facility] Address: [address] [place] [address] Result Comment: Diag nostic interpretation performed at: [facility], [address] [place] [address] CLIA# [id number] Director: Jaison Lema MD Performed By: #### 6 6121-5 ####[facility] LABCLIA [id number] [address] [place] GROSS DESCRIPTION Normal [facility] Comment on above: Order Comment: Speci men Type: TISSUE SPECIMENOrdering Facility: [facility] Address: [address] [place] [address] Result Comment: A. O mentum, ResectionReceived fresh labeled omentum is a 15.0 x 14.0 x 1.0 cm aggregate of cunha-yellow, lobulated soft tissue consistent with omentum. No nodules are areas of induration are seen. Sectioning reveals yellow, homogeneous cut surfaces. Watch Assembler section submitted in A1.B. Small Bowel, IleostomyReceived [...] polyps or mass lesions are identified. A textile machinery sales representative section of the ostomy site is submitted in B1.C. Soft Tissue (Not otherwise specified)Received fresh labeled peristomal fat is a 4.0 x 3.5 x 2.0 cm cunha-yellow lobulated soft tissue fragment. Sectioning reveals cunha-yellow homogenous cut surfaces. No nodules or areas of induration are grossly appreciated. Watch Assembler section submitted in C1.Gross examination performed at [facility], [address] [place], [place] [address]MSL/ARIELA 12/12/24 3:23 PM Performed By: #### 6 6121-5 ####[facility] LABIA [id number] [place] [address] [place] Phosphate SerPl-mCncon 12-12 Phosphate [Mass/Vol] 3.7 mg/dL Normal 2.7-4.8 [facility] Comment on above: Order Comment: Speci men Type: BLOOD SPECIMENOrdering Facility: [facility] Address: [address] [place] [address] Performed By: #### 2 4323-8, 03390-8, 2777-1 ####[facility] [id number] [place] [address] [place] CBC panel Auto (Bld)on 12-11 Erythrocyte distribution width (RBC) [Ratio] 22.3 % High 11.5-15.0 [facility] Comment on above: Order Comment: Speci men Type: BLOOD SPECIMENOrdering Facility: [facility] Address: [address] [place] [address] Performed By: #### 5 8410-2 ####[facility] LABIA [id number] [place] [id number] [place] Hematocrit (Bld) [Volume fraction] 26.7 % Low 36.0-46.0 [facility] Comment on above: Order Comment: Speci men Type: BLOOD SPECIMENOrdering Facility: [facility] Address: [address] [place] [address] Performed By: #### 5 8410-2 ####[facility] LABIA [id number] [place] [address] [place] Hemoglobin (Bld) [Mass/Vol] 8.3 g/dL Low 11.5-15.5 [facility] Comment on above: Order Comment: Speci men Type: BLOOD SPECIMENOrdering Facility: [facility] Address: [address] [place] [address] Performed By: #### 5 8410-2 ####[facility] [id number] [place] [address] [place] MCH (RBC) [Entitic mass] 28.0 pg Normal 26.0-34.0 [facility] Comment on above: Order Comment: Speci men Type: BLOOD SPECIMENOrdering Facility: [facility] Address: [address] [place] [address] Performed By: #### 5 8410-2 ####[facility] [id number] [address] [place] MCHC (RBC) [Mass/Vol] 31.1 g/dL Normal 30.5-36.0 [facility] Comment on above: Order Comment: Speci men Type: BLOOD SPECIMENOrdering Facility: [facility] Address: [address] [place] [address] Performed By: #### 5 8410-2 ####[facility] [id number] [place] [address] [place] MCV (RBC) [Entitic vol] 90.2 fL Normal 80.0-100.0 [facility] Comment on above: Order Comment: Speci men Type: BLOOD SPECIMENOrdering Facility: [facility] Address: [address] [place] [address] Performed By: #### 5 8410-2 ####[facility] LABCLIA [id number] [facility] [address] [place] [address] [place] Nucleated RBC (Bld) [#/Vol] 0.02 10*3/uL High <0.01 [facility] Comment on above: Order Comment: Speci men Type: BLOOD SPECIMENOrdering Facility: [facility] Address: [address] [place] [address] Performed By: #### 5 8410-2 ####[facility] LABIA [id number] [address], [facility]95 [place] Platelet mean volume (Bld) [Entitic vol] 11.2 fL Normal 9.0-12.7 [facility] Comment on above: Order Comment: Speci men Type: BLOOD SPECIMENOrdering Facility: [facility] Address: [address] [place] [address] Performed By: #### 5 8410-2 ####[facility] LABIA [id number] [address], [facility]95 [place] Platelets (Bld) [#/Vol] 301 10*3/uL Normal 150-400 [facility] Comment on above: Order Comment: Speci men Type: BLOOD SPECIMENOrdering Facility: [facility] Address: [address] [place] [address] Performed By: #### 5 8410-2 ####[facility] LABIA [id number] [address], [facility]95 [place] RBC (Bld) [#/Vol] 2.96 10*6/uL Low 3.90-5.20 [facility] Comment on above: Order Comment: Speci men Type: BLOOD SPECIMENOrdering Facility: [facility] Address: [address] [place] [address] Performed By: #### 5 8410-2 ####[facility] LABIA [id number] [address], [facility]95 [place] WBC (Bld) [#/Vol] 6.78 10*3/uL Normal 3.70-11.00 [facility] Comment on above: Order Comment: Speci men Type: BLOOD SPECIMENOrdering Facility: [facility] Address: [address] [place] [address] Performed By: #### 5 8410-2 ####[facility] LABIA [id number] [place] [address] [place] CONSULT PROGon 12-11-2024 CONSULT PROG Normal [facility] CONSULT PROG Normal [facility] CONSULT PROG Normal [facility] Comprehensive metabolic 2000 panelon 12-11-2024 Albumin [Mass/Vol] 3.5 g/dL Low 3.9-4.9 [facility] Comment on above: Order Comment: Speci men Type: BLOOD SPECIMENOrdering Facility: [facility] Address: [address] [place] [address] Performed By: #### 2 4323-8, 79936-2, 277-1, 2570-8 ####[facility] LABIA [id number] [place] [address] [place] ALP [Catalytic activity/Vol] 205 U/L High 34-123 [facility] Comment on above: Order Comment: Speci men Type: BLOOD SPECIMENOrdering Facility: [facility] Address: [address] [place] [address] Performed By: #### 2 4323-8, 71540-3, 277-1, 257-8 ####[facility] LABIA [id number] [place] [id number] [place] ALT [Catalytic activity/Vol] 45 U/L High 7-38 [facility] Comment on above: Order Comment: Speci men Type: BLOOD SPECIMENOrdering Facility: [facility] Address: [address] [place] [address] Performed By: #### 2 4323-8, , 2776-06, 2571-01 ####[facility] LABCLIA [id number] [address] [address] [place] Anion gap [Moles/Vol] 12 mmol/L Normal 8-15 [facility] Comment on above: Order Comment: Speci men Type: BLOOD SPECIMENOrdering Facility: [facility] Address: [address] [place] [address] Performed By: #### 2 4323-8, , 2776-06, 2571-01 ####[facility] LABIA [id number] [place] [id number] [place] AST [Catalytic activity/Vol] 38 U/L High 13-35 [facility] Comment on above: Order Comment: Speci men Type: BLOOD SPECIMENOrdering Facility: [facility] Address: [address] [place] [address] Performed By: #### 2 4323-8, , 2776-06, 2571-01 ####[facility] LABIA [id number] [place] [id number] [place] Bilirubin [Mass/Vol] 0.5 mg/dL Normal 0.2-1.3 [facility] Comment on above: Order Comment: Speci men Type: BLOOD SPECIMENOrdering Facility: [facility] Address: [address] [place], [place] [address] Performed By: #### 2 4323-8, , 2776-06, 2571-01 ####[facility] LABIA [id number] [address] [address] [place] Calcium [Mass/Vol] 9.3 mg/dL Normal 8.5-10.2 [facility] Comment on above: Order Comment: Speci men Type: BLOOD SPECIMENOrdering Facility: [facility] Address: [address] [place], [place] [address] Performed By: #### 2 4323-8, , 2776-06, 2571-01 ####[facility] LABCLIA [id number] [address] [address] [place] Chloride [Moles/Vol] 102 mmol/L Normal 98-107 [facility] Comment on above: Order Comment: Speci men Type: BLOOD SPECIMENOrdering Facility: [facility] Address: [address] [place] [address] Performed By: #### 2 4323-8, , 2776-06, 2571-01 ####[facility] LABIA [id number] [place] [id number] [place] CO2 [Moles/Vol] 24 mmol/L Normal 22-30 [facility] Comment on above: Order Comment: Speci men Type: BLOOD SPECIMENOrdering Facility: [facility] Address: [address] [place] [address] Performed By: #### 2 4323-8, 00738-2, 2776-06, 2571-01 ####[facility] LABIA [id number] [place] [id number] [place] Creatinine [Mass/Vol] 0.77 mg/dL Normal 0.58-0.96 [facility] Comment on above: Order Comment: Speci men Type: BLOOD SPECIMENOrdering Facility: [facility] Address: [address] [place] [address] Performed By: #### 2 4323-8, 22912-2, 2776-06, 2571-01 ####[facility] LABIA [id number] [address] [address] [place] Creatinine and Glomerular filtration rate.predicted panel (S/P/Bld) 100 mL/min/1.73m??? Normal >=60 [facility] Comment on above: Order Comment: Speci men Type: BLOOD SPECIMENOrdering Facility: [facility] Address: [address] [place] [address] Result Comment: Zeny mated Glomerular Filtration Rate [...] By: #### 2 4323-8, , 2776-06, 2571-01 ####[facility] LABIA [id number] [address] [address] [place] Glucose [Mass/Vol] 118 mg/dL High 74-99 [facility] Comment on above: Order Comment: Dora finch Type: BLOOD SPECIMENOrdering Facility: [facility] Address: [address] [place] [id number] Result Comment: The [place] Diabetes Association (ADA) provides guidance for cutoff [...] Standards of Medical Care in Diabetes 2016, [place] Diabetes Association. Diabetes Care. 2016.39(Suppl 1). Performed By: #### 2 4323-8, , 2776-06, 2571-01 ####[facility] LABIA [id number] [address] [address] [place] Potassium [Moles/Vol] 4.0 mmol/L Normal 3.7-5.1 [facility] Comment on above: Order Comment: Dora finch Type: BLOOD SPECIMENOrdering Facility: [facility] Address: [address] [place] [address] Performed By: #### 2 4323-8, , 2776-06, 8 ####[facility] LABIA [id number] [address] [address] [place] Protein [Mass/Vol] 7.1 g/dL Normal 6.3-8.0 [facility] Comment on above: Order Comment: Speci men Type: BLOOD SPECIMENOrdering Facility: [facility] Address: [address] [place] [address] Performed By: #### 2 4323-8, , 2776-06, 8 ####[facility] LABIA [id number] [place] [id number] [place] Sodium [Moles/Vol] 138 mmol/L Normal 136-144 [facility] Comment on above: Order Comment: Speci men Type: BLOOD SPECIMENOrdering Facility: [facility] Address: [address] [place] [address] Performed By: #### 2 4323-8, , 2776-06, 2571-01 ####[facility] [id number] [place] [id number] [place] Urea nitrogen [Mass/Vol] 17 mg/dL Normal 7-21 [facility] Comment on above: Order Comment: Speci men Type: BLOOD SPECIMENOrdering Facility: [facility] Address: [address] [place] [address] Performed By: #### 2 4323-8, 74822-2, 2776-06, 8 ####[facility] LABIA [id number] [address] [address] [place] Magnesium SerPl-mCncon 12-11 Magnesium [Mass/Vol] 1.9 mg/dL Normal 1.7-2.3 [facility] Comment on above: Order Comment: Speci men Type: BLOOD SPECIMENOrdering Facility: [facility] Address: [address] [place] [address] Performed By: #### 2 4323-8, 60596-1, 2777-1, 2570-8 ####[facility] [id number] [address] [address] [place] NUTRITIONon 12-11-2024 NUTRITION Normal [facility] PTT, ANTICOAGULANT THERAPYon 12-11-2024 aPTT Coag (PPP) [Time] 55.2 s High 23.0-32.4 [facility] Comment on above: Order Comment: Speci men Type: BLOOD SPECIMENOrdering Facility: [facility] Address: [address] [place] [address] Performed By: #### P TTAC ####[facility] [id number] [address] [place] aPTT Coag (PPP) [Time] 68.6 s High 23.0-32.4 [facility] Comment on above: Order Comment: Speci men Type: BLOOD SPECIMENOrdering Facility: [facility] Address: [address] [place] [address] Performed By: #### P TTAC ####[facility] [id number] [place] [address] [place] Phosphate SerPl-mCncon 12-11 Phosphate [Mass/Vol] 3.1 mg/dL Normal 2.7-4.8 [facility] Comment on above: Order Comment: Speci men Type: BLOOD SPECIMENOrdering Facility: [facility] Address: [address] [place] [address] Performed By: #### 2 4323-8, 05992-7, 2777-1, 2570-8 ####[facility] [id number] [place] [id number] [place] Trigl SerPl-mCncon Triglyceride [Mass/Vol] 107 mg/dL Normal <150 [facility] Comment on above: Order Comment: Speci men Type: BLOOD SPECIMENOrdering Facility: [facility] Address: [address] [place] [address] Result Comment: <150 mg/dL, Normal 150-199 mg/dL, Borderline high 200-499 mg/dL, High>499 mg/dL, Very highReference:1. National Cholesterol Education Program ATP III Guideline At-A-Glance Quick Desk Reference: National Heart, Lung, and Blood [employer] National Institutes of Health. 2001: NIH Publication No. 01-3305. Performed By: #### 2 4323-8, 95231-6, 2777-1, 2571-8 ####[facility] LABCLIA [id number] [place] [address] [place] Triglyceride [Mass/Vol]on FASTING TIME 0 hrs Normal [facility] Comment on above: Order Comment: Speci men Type: BLOOD SPECIMENOrdering Facility: [facility] Address: [address] [place] [address] Performed By: #### 2 4323-8, 43851-5, 2777-1, 257-8 ####[facility] LABIA [id number] [place] [id number] [place] Vancomycin Walton SerPl-mCncon 12-11-2024 Vancomycin random [Mass/Vol] 14.8 ug/mL Normal 10.0-20.0 [facility] Comment on above: Order Comment: Speci men Type: BLOOD SPECIMENOrdering Facility: [facility] Address: [address] [place] [address] Result Comment: Refe rence ranges and high/low indicator flags are provided as general guidelines only. The treating physician must determine appropriate target levels/dosing based on the specific clinical situation. Performed By: #### 4 091-5 ####[facility] LABCLIA [id number] [place] [id number] [place] ANES POSTPROC EVALon 025 ANES POSTPROC EVAL Normal [facility] ANES PRE-OPon 12-10-2024 ANES PRE-OP Normal [facility] B-HCG SerPl-aCncon HCG.beta subunit Qn m[IU]/mL Normal <5.0 [facility] Comment on above: Order Comment: Speci men Type: BLOOD SPECIMENOrdering Facility: [facility] Address: [address] [place] [address] Result Comment: Negsameer timiles Performed By: #### 2 1198-7 ####[facility] LABIA [id number] [place] [address] [place] CASE MANAGEMon 12-10-2024 CASE MANAGEM Normal [facility] CBC panel Auto (Bld)on 12-10 Erythrocyte distribution width (RBC) [Ratio] 21.9 % High 11.5-15.0 [facility] Comment on above: Order Comment: Speci men Type: BLOOD SPECIMENOrdering Facility: [facility] Address: [address] [place] [address] Performed By: #### 5 8410-2 ####[facility] LABIA [id number] [place] [address] [place] Hematocrit (Bld) [Volume fraction] 28.0 % Low 36.0-46.0 [facility] Comment on above: Order Comment: Speci men Type: BLOOD SPECIMENOrdering Facility: [facility] Address: [address] [place] [address] Performed By: #### 5 8410-2 ####[facility] LABIA [id number] [place] [id number] [place] Hemoglobin (Bld) [Mass/Vol] 8.3 g/dL Low 11.5-15.5 [facility] Comment on above: Order Comment: Speci men Type: BLOOD SPECIMENOrdering Facility: [facility] Address: [address] [place] [address] Performed By: #### 5 8410-2 ####[facility] LABCLIA [id number] [place] [address] [place] MCH (RBC) [Entitic mass] 27.9 pg Normal 26.0-34.0 [facility] Comment on above: Order Comment: Speci men Type: BLOOD SPECIMENOrdering Facility: [facility] Address: [address] [place] [address] Performed By: #### 5 8410-2 ####[facility]IA [id number] [place] [address] [place] MCHC (RBC) [Mass/Vol] 29.6 g/dL Low 30.5-36.0 [facility] Comment on above: Order Comment: Speci men Type: BLOOD SPECIMENOrdering Facility: [facility] Address: [address] [place] [address] Performed By: #### 5 8410-2 ####[facility] [id number] [place] [address] [place] MCV (RBC) [Entitic vol] 94.0 fL Normal 80.0-100.0 [facility] Comment on above: Order Comment: Speci men Type: BLOOD SPECIMENOrdering Facility: [facility] Address: [address] [place] [address] Result Comment: MCV is >= 10% variation from the most recent sample, clinical correlation suggested to exclude specimen misidentification. Performed By: #### 5 8410-2 ####[facility] LABIA [id number] [place] [address] [place] Nucleated RBC (Bld) [#/Vol] 0.02 10*3/uL High <0.01 [facility] Comment on above: Order Comment: Speci men Type: BLOOD SPECIMENOrdering Facility: [facility] Address: [address] [place] [address] Performed By: #### 5 8410-2 ####[facility]IA [id number] [place] [address] [place] Platelet mean volume (Bld) [Entitic vol] 11.7 fL Normal 9.0-12.7 [facility] Comment on above: Order Comment: Speci men Type: BLOOD SPECIMENOrdering Facility: [facility] Address: [address] [place] [address] Performed By: #### 5 8410-2 ####[facility]CL[facility] [id number] [place] [address] [place] Platelets (Bld) [#/Vol] 389 10*3/uL Normal 150-400 [facility] Comment on above: Order Comment: Speci men Type: BLOOD SPECIMENOrdering Facility: [facility] Address: [address] [place] [address] Performed By: #### 5 8410-2 ####[facility] LABCLIA [id number] [place] [address] [place] RBC (Bld) [#/Vol] 2.98 10*6/uL Low 3.90-5.20 [facility] Comment on above: Order Comment: Speci men Type: BLOOD SPECIMENOrdering Facility: [facility] Address: [address] [place] [address] Performed By: #### 5 8410-2 ####[facility] [id number] [place] [address] [place] WBC (Bld) [#/Vol] 6.68 10*3/uL Normal 3.70-11.00 [facility] Comment on above: Order Comment: Speci men Type: BLOOD SPECIMENOrdering Facility: [facility] Address: [address] [place] [address] Result Comment: No c lot detected. Performed By: #### 5 8410-2 ####[facility] LABCLIA [id number] [place] [address] [place] CONSULT PROGon 12-10-2024 CONSULT PROG Normal [facility] CONSULT PROG Normal [facility] CRP SerPl-mCncon 12-10-2024 CRP [Mass/Vol] Normal <0.9 [facility] Comment on above: Order Comment: Speci men Type: BLOOD SPECIMENOrdering Facility: [facility] Address: [address] [place] [address] Result Comment: Poss ible contamination.Corrected result: Previously reported as <0.3 mg/dL on 12/10/2024 at 8:05 AM EDT. Performed By: #### 1 988-5 ####[facility] [facility] LABCLIA [id number] [place] [id number] [place] Comprehensive metabolic 2000 panelon 12-10-2024 Albumin [Mass/Vol] 3.7 g/dL Low 3.9-4.9 [facility] Comment on above: Order Comment: Speci men Type: BLOOD SPECIMENOrdering Facility: [facility] Address: [address] [place] [address] Performed By: #### 2 4323-8, , 2776-06 ####[facility] LABCLIA [id number] [place] [address] [place] ALP [Catalytic activity/Vol] 198 U/L High 34-123 [facility] Comment on above: Order Comment: Speci men Type: BLOOD SPECIMENOrdering Facility: [facility] Address: [address] [place] [address] Performed By: #### 2 4323-8, , 2776-06 ####[facility] LABCLIA [id number] [place] [id number] [place] ALT [Catalytic activity/Vol] 43 U/L High 7-38 [facility] Comment on above: Order Comment: Speci men Type: BLOOD SPECIMENOrdering Facility: [facility] Address: [address] [place] [address] Performed By: #### 2 4323-8, , 2776- ####[facility] LABCLIA [id number] [address] [address] [place] Anion gap [Moles/Vol] 11 mmol/L Normal 8-15 [facility] Comment on above: Order Comment: Speci men Type: BLOOD SPECIMENOrdering Facility: [facility] Address: [address] [place] [address] Performed By: #### 2 4323-8, , 2776-06 ####[facility] LABCLIA [id number] [place] [id number] [place] AST [Catalytic activity/Vol] 34 U/L Normal 13-35 [facility] Comment on above: Order Comment: Speci men Type: BLOOD SPECIMENOrdering Facility: [facility] Address: [address] [place] [address] Performed By: #### 2 4323-8, , 2776-06 ####[facility] LABCLIA [id number] [place] [id number] [place] Bilirubin [Mass/Vol] 0.6 mg/dL Normal 0.2-1.3 [facility] Comment on above: Order Comment: Speci men Type: BLOOD SPECIMENOrdering Facility: [facility] Address: [address] [place] [address] Performed By: #### 2 4323-8, , 2776-06 ####[facility] LABCLIA [id number] [address], [facility]95 [place] Calcium [Mass/Vol] 9.6 mg/dL Normal 8.5-10.2 [facility] Comment on above: Order Comment: Speci men Type: BLOOD SPECIMENOrdering Facility: [facility] Address: [address] [place] [address] Performed By: #### 2 4323-8, , 2776-06 ####[facility] LABCLIA [id number] [address] [place] [address] [place] Chloride [Moles/Vol] 103 mmol/L Normal 98-107 [facility] Comment on above: Order Comment: Speci men Type: BLOOD SPECIMENOrdering Facility: [facility] Address: [address] [place], [place] [address] Performed By: #### 2 4323-8, 34667-5, 2776-06 ####[facility] LABCLIA [id number] [place] [id number] [place] CO2 [Moles/Vol] 23 mmol/L Normal 22-30 [facility] Comment on above: Order Comment: Speci men Type: BLOOD SPECIMENOrdering Facility: [facility] Address: [address] [place] [address] Performed By: #### 2 4323-8, , 2776-06 ####[facility] LABIA [id number] [place] [address] [place] Creatinine [Mass/Vol] 0.85 mg/dL Normal 0.58-0.96 [facility] Comment on above: Order Comment: Speci men Type: BLOOD SPECIMENOrdering Facility: [facility] Address: [address] [place] [address] Performed By: #### 2 4323-8, 23610-2, 27712-25 ####[facility] LABIA [id number] [place] [address] [place] Creatinine and Glomerular filtration rate.predicted panel (S/P/Bld) 88 mL/min/1.73m??? Normal >=60 [facility] Comment on above: Order Comment: Speci men Type: BLOOD SPECIMENOrdering Facility: [facility] Address: [address] [place] [address] Result Comment: Zeny mated Glomerular Filtration Rate [...] Performed By: #### 2 4323-8, , 2776-06 ####[facility] LABCLIA [id number] [facility] [id number] [place] [address] [place] Glucose [Mass/Vol] 119 mg/dL High 74-99 [facility] Comment on above: Order Comment: Dora finch Type: BLOOD SPECIMENOrdering Facility: [facility] Address: [address] [place] [address] Result Comment: The [place] Diabetes Association (ADA) provides guidance for cutoff [...] Standards of Medical Care in Diabetes 2016, [place] Diabetes Association. Diabetes Care. 2016.39(Suppl 1). Performed By: #### 2 4323-8, , 2776-06 ####[facility] LABCLIA [id number] [facility] [address] [address] [place] Potassium [Moles/Vol] 4.8 mmol/L Normal 3.7-5.1 [facility] Comment on above: Order Comment: Dora finch Type: BLOOD SPECIMENOrdering Facility: [facility] Address: [address] [place] [address] Performed By: #### 2 4323-8, , 2776-06 ####[facility] LABCLIA [id number] [facility]ENTER[facility] AVENUEDES[id number] [address] [place] Protein [Mass/Vol] 7.4 g/dL Normal 6.3-8.0 [facility] Comment on above: Order Comment: Speci men Type: BLOOD SPECIMENOrdering Facility: [facility] Address: [address] [place], [place] [address] Performed By: #### 2 4323-8, , 2776-06 ####[facility] LABCLIA [id number] [address] [address] [place] Sodium [Moles/Vol] 137 mmol/L Normal 136-144 [facility] Comment on above: Order Comment: Speci men Type: BLOOD SPECIMENOrdering Facility: [facility] Address: [address] [place], [place] [address] Performed By: #### 2 4323-8, , 2776-06 ####[facility] LABCLIA [id number] [place] [id number] [place] Urea nitrogen [Mass/Vol] 16 mg/dL Normal 7-21 [facility] Comment on above: Order Comment: Speci men Type: BLOOD SPECIMENOrdering Facility: [facility] Address: [address] [place], [place] [address] Performed By: #### 2 4323-8, , 2776-06 ####[facility] LABIA [id number] [address] [address] [place] Magnesium SerPl-mCncon 12-10 Magnesium [Mass/Vol] 2.2 mg/dL Normal 1.7-2.3 [facility] Comment on above: Order Comment: Speci men Type: BLOOD SPECIMENOrdering Facility: [facility] Address: [address] [place], [place] [address] Performed By: #### 2 4323-8, , 2776-06 ####[facility] LABCLIA [id number] [address] [address] [place] NUTRITIONon 12-10-2024 NUTRITION Normal [facility] PTT, ANTICOAGULANT THERAPYon 12-10-2024 aPTT Coag (PPP) [Time] 50.4 s High 23.0-32.4 [facility] Comment on above: Order Comment: Speci men Type: BLOOD SPECIMENOrdering Facility: [facility] Address: [address] [place] [address] Performed By: #### P TTAC ####[facility] LABCLIA [id number] [place] [address] [place] aPTT Coag (PPP) [Time] 29.2 s Normal 23.0-32.4 [facility] Comment on above: Order Comment: Speci men Type: BLOOD SPECIMENOrdering Facility: [facility] Address: [address] [place] [address] Result Comment: Inte rpret with caution. Sample centrifuged greater than 1 hour from collection time. According to Clinical and Laboratory Standards [employer] guidelines, results could be falsely decreased due to heparin neutralization by in vitro release of platelet factor 4. Suggest correlation with clinical findings and redraw if indicated. Performed By: #### P TTAC ####[facility] LABCLIA [id number] [place] [address] [place] Phosphate SerPl-mCncon 12-10 Phosphate [Mass/Vol] 4.3 mg/dL Normal 2.7-4.8 [facility] Comment on above: Order Comment: Speci men Type: BLOOD SPECIMENOrdering Facility: [facility] Address: [address] [place] [address] Performed By: #### 2 4323-8, 73878-9, 2777-1 ####[facility] LABCLIA [id number] [place] [address] [place] TYPE + SCREENon 12-10-2024 ABO O Normal [facility] Comment on above: Order Comment: Speci men Type: BLOOD SPECIMENOrdering Facility: [facility] Address: [address] [place] [address] Performed By: #### T SCR ####[facility] BLOOD BANKCLIA [id number] [place] [address] [place] Rh Nom (Bld) Positive Normal [facility] Comment on above: Order Comment: Speci men Type: BLOOD SPECIMENOrdering Facility: [facility] Address: [address] [place] [address] Performed By: #### T SCR ####[facility] BLOOD BANKCLIA [id number] [place] [address] [place] TYPE AND SCREEN EXPIRATION 12/13/2024 23:59 Normal [facility] Comment on above: Order Comment: Speci men Type: BLOOD SPECIMENOrdering Facility: [facility] Address: [address] [place] [address] Performed By: #### T SCR ####[facility] BLOOD BANKCLIA [id number] [address] [place] ALLIED HEALTHon 12-09-2024 ALLIED HEALTH Normal [facility] CBC panel Auto (Bld)on 12-09 Erythrocyte distribution width (RBC) [Ratio] 20.9 % High 11.5-15.0 [facility] Comment on above: Order Comment: Speci men Type: BLOOD SPECIMENOrdering Facility: [facility] Address: [address] [place] [address] Performed By: #### 5 8410-2 ####[facility] LABCLIA [id number] [place] [address] [place] Hematocrit (Bld) [Volume fraction] 28.3 % Low 36.0-46.0 [facility] Comment on above: Order Comment: Speci men Type: BLOOD SPECIMENOrdering Facility: [facility] Address: [address] [place] [address] Performed By: #### 5 8410-2 ####[facility] LABCLIA [id number] [place] [address] [place] Hemoglobin (Bld) [Mass/Vol] 8.9 g/dL Low 11.5-15.5 [facility] Comment on above: Order Comment: Speci men Type: BLOOD SPECIMENOrdering Facility: [facility] Address: [address] [place] [address] Performed By: #### 5 8410-2 ####[facility] [id number] [address] [place] [facility] MCH (RBC) [Entitic mass] 26.5 pg Normal 26.0-34.0 [facility] Comment on above: Order Comment: Speci men Type: BLOOD SPECIMENOrdering Facility: [facility] Address: [address] [place] [address] Performed By: #### 5 8410-2 ####[facility] [id number] [address] [place] MCHC (RBC) [Mass/Vol] 31.4 g/dL Normal 30.5-36.0 [facility] Comment on above: Order Comment: Speci men Type: BLOOD SPECIMENOrdering Facility: [facility] Address: [address] [place] [address] Performed By: #### 5 8410-2 ####[facility] [id number] [place] [address] [place] MCV (RBC) [Entitic vol] 84.2 fL Normal 80.0-100.0 [facility] Comment on above: Order Comment: Speci men Type: BLOOD SPECIMENOrdering Facility: [facility] Address: [address] [place] [address] Performed By: #### 5 8410-2 ####[facility] [id number] [place] [address] [place] Nucleated RBC (Bld) [#/Vol] 10*3/uL Normal <0.01 [facility] Comment on above: Order Comment: Speci men Type: BLOOD SPECIMENOrdering Facility: [facility] Address: [address] [place] [address] Performed By: #### 5 8410-2 ####[facility] LABCLIA [id number] [address] [place] [address] [place] Platelet mean volume (Bld) [Entitic vol] 9.2 fL Normal 9.0-12.7 [facility] Comment on above: Order Comment: Speci men Type: BLOOD SPECIMENOrdering Facility: [facility] Address: [address] [place] [address] Performed By: #### 5 8410-2 ####[facility] LABCLIA [id number] [facility] [address] [place] [address] [place] Platelets (Bld) [#/Vol] 423 10*3/uL High 150-400 [facility] Comment on above: Order Comment: Speci men Type: BLOOD SPECIMENOrdering Facility: [facility] Address: [address] [place] [address] Performed By: #### 5 8410-2 ####[facility] LABCLIA [id number] [address], [place] [address] [place] RBC (Bld) [#/Vol] 3.36 10*6/uL Low 3.90-5.20 [facility] Comment on above: Order Comment: Speci men Type: BLOOD SPECIMENOrdering Facility: [facility] Address: [address] [place] [address] Performed By: #### 5 8410-2 ####[facility] LABCLIA [id number] [address] [place] [address] [place] WBC (Bld) [#/Vol] 8.36 10*3/uL Normal 3.70-11.00 [facility] Comment on above: Order Comment: Speci men Type: BLOOD SPECIMENOrdering Facility: [facility] Address: [address] [place] [address] Performed By: #### 5 8410-2 ####[facility] LABCLIA [id number] [address] [place] [address] [place] [facility] Comprehensive metabolic 2000 panelon 12-09-2024 Albumin [Mass/Vol] 3.2 g/dL Low 3.9-4.9 [facility] Comment on above: Order Comment: Speci men Type: BLOOD SPECIMENOrdering Facility: [facility] Address: [address] [place] [address] Performed By: #### 2 4323-8, 12537-9, 2776- ####[facility] LABCLIA [id number] [place] [id number] [place] ALP [Catalytic activity/Vol] 163 U/L High 34-123 [facility] Comment on above: Order Comment: Speci men Type: BLOOD SPECIMENOrdering Facility: [facility] Address: [address] [place] [address] Performed By: #### 2 4323-8, , 2776- ####[facility] LABCLIA [id number] [place] [address] [place] ALT [Catalytic activity/Vol] 37 U/L Normal 7-38 [facility] Comment on above: Order Comment: Speci men Type: BLOOD SPECIMENOrdering Facility: [facility] Address: [address] [place] [address] Performed By: #### 2 4323-8, , 2776- ####[facility] LABCLIA [id number] [place] [id number] [place] Anion gap [Moles/Vol] 12 mmol/L Normal 8-15 [facility] Comment on above: Order Comment: Speci men Type: BLOOD SPECIMENOrdering Facility: [facility] Address: [address] [place] [address] Performed By: #### 2 4323-8, 64085-2, 2776- ####[facility] LABCLIA [id number] [place] [id number] [place] AST [Catalytic activity/Vol] 31 U/L Normal 13-35 [facility] Comment on above: Order Comment: Speci men Type: BLOOD SPECIMENOrdering Facility: [facility] Address: [address] [place], [place] [address] Performed By: #### 2 4323-8, , 2776-06 ####[facility] LABCLIA [id number] [facility] [place] [id number] [place] Bilirubin [Mass/Vol] 0.5 mg/dL Normal 0.2-1.3 [facility] Comment on above: Order Comment: Speci men Type: BLOOD SPECIMENOrdering Facility: [facility] Address: [address] [place] [address] Performed By: #### 2 4323-8, , 2776-06 ####[facility] LABCLIA [id number] [place] [address] [place] Calcium [Mass/Vol] 9.2 mg/dL Normal 8.5-10.2 [facility] Comment on above: Order Comment: Speci men Type: BLOOD SPECIMENOrdering Facility: [facility] Address: [address] [place], [place] [address] Performed By: #### 2 4323-8, , 2776-06 ####[facility] LABCLIA [id number] [place] [address] [place] Chloride [Moles/Vol] 101 mmol/L Normal 98-107 [facility] Comment on above: Order Comment: Speci men Type: BLOOD SPECIMENOrdering Facility: [facility] Address: [address] [place] [address] Performed By: #### 2 4323-8, , 2776-06 ####[facility] LABCLIA [id number] [facility]ENT[facility] [address] [place] [address] [place] CO2 [Moles/Vol] 24 mmol/L Normal 22-30 [facility] Comment on above: Order Comment: Speci men Type: BLOOD SPECIMENOrdering Facility: [facility] Address: [address] [place] [address] Performed By: #### 2 4323-8, , 2776-06 ####[facility] LABCLIA [id number] [address] [address] [place] Creatinine [Mass/Vol] 0.89 mg/dL Normal 0.58-0.96 [facility] Comment on above: Order Comment: Florii men Type: BLOOD SPECIMENOrdering Facility: [facility] Address: [address] [place] [address] Performed By: #### 2 4323-8, , 2776-06 ####[facility] LABIA [id number] [address] [address] [place] Creatinine and Glomerular filtration rate.predicted panel (S/P/Bld) 84 mL/min/1.73m??? Normal >=60 [facility] Comment on above: Order Comment: Droa men Type: BLOOD SPECIMENOrdering Facility: [facility] Address: [address] [place] [address] Result Comment: Zeny mated Glomerular Filtration Rate [...] Performed By: #### 2 4323-8, , 2776-06 ####[facility] LABIA [id number] [address] [address] [place] Glucose [Mass/Vol] 105 mg/dL High 74-99 [facility] Comment on above: Order Comment: Dora finch Type: BLOOD SPECIMENOrdering Facility: [facility] Address: [address] [place], [place] [address] Result Comment: The [place] Diabetes Association (ADA) provides guidance for cutoff [...] Standards of Medical Care in Diabetes 2016, [place] [employer]. Diabetes Care. 2016.39(Suppl 1). Performed By: #### 2 4323-8, , 2776-06 ####[facility] [id number] [place] [address] [place] Potassium [Moles/Vol] 3.9 mmol/L Normal 3.7-5.1 [facility] Comment on above: Order Comment: Speci men Type: BLOOD SPECIMENOrdering Facility: [facility] Address: [address] [place] [address] Performed By: #### 2 4323-8, , 2776-06 ####[facility] [id number] [place] [address] [place] Protein [Mass/Vol] 6.4 g/dL Normal 6.3-8.0 [facility] Comment on above: Order Comment: Speci men Type: BLOOD SPECIMENOrdering Facility: [facility] Address: [address] [place] [address] Performed By: #### 2 4323-8, , 2776-06 ####[facility] [id number] [place] [id number] [place] Sodium [Moles/Vol] 137 mmol/L Normal 136-144 [facility] Comment on above: Order Comment: Speci men Type: BLOOD SPECIMENOrdering Facility: [facility] Address: [address] [place] [address] Performed By: #### 2 4323-8, 91130-0, 2777-1 ####[facility] LABCLIA [id number] [place] [id number] [place] Urea nitrogen [Mass/Vol] 17 mg/dL Normal 7-21 [facility] Comment on above: Order Comment: Speci men Type: BLOOD SPECIMENOrdering Facility: [facility] Address: [address] [place] [address] Performed By: #### 2 4323-8, 29395-5, 2776- ####[facility] LABIA [id number] [place] [id number] [place] Magnesium SerPl-mCncon 12-09 Magnesium [Mass/Vol] 1.9 mg/dL Normal 1.7-2.3 [facility] Comment on above: Order Comment: Speci men Type: BLOOD SPECIMENOrdering Facility: [facility] Address: [address] [place] [address] Performed By: #### 2 4323-8, 61346-0, 277-1 ####[facility] LABIA [id number] [place] [id number] [place] NURSING PROGon 12-09-2024 NURSING PROG Normal [facility] PTT, ANTICOAGULANT THERAPYon 12-09-2024 aPTT Coag (PPP) [Time] 64.5 s High 23.0-32.4 [facility] Comment on above: Order Comment: Speci men Type: BLOOD SPECIMENOrdering Facility: [facility] Address: [address] [place] [address] Performed By: #### P TTA ####[facility] LABIA [id number] [place] [id number] [place] aPTT Coag (PPP) [Time] 44.6 s High 23.0-32.4 [facility] Comment on above: Order Comment: Speci men Type: BLOOD SPECIMENOrdering Facility: [facility] Address: [address] [place] [address] Performed By: #### P TTAC ####[facility] LABIA [id number] [place] [address] [place] aPTT Coag (PPP) [Time] 87.9 s High 23.0-32.4 [facility] Comment on above: Order Comment: Speci men Type: BLOOD SPECIMENOrdering Facility: [facility] Address: [address] [place] [address] Performed By: #### P TTAC ####[facility] LABIA [id number] [place] [address] [place] Phosphate SerPl-mCncon 12-09 Phosphate [Mass/Vol] 4.1 mg/dL Normal 2.7-4.8 [facility] Comment on above: Order Comment: Speci men Type: BLOOD SPECIMENOrdering Facility: [facility] Address: [address] [place] [address] Performed By: #### 2 4323-8, 41145-7, 2777-1 ####[facility] [id number] [address] [place] BRIEF OP NOTon 12-08-2024 BRIEF OP NOT Normal [facility] CBC panel Auto (Bld)on 12-08 Erythrocyte distribution width (RBC) [Ratio] 20.5 % High 11.5-15.0 [facility] Comment on above: Order Comment: Speci men Type: BLOOD SPECIMENOrdering Facility: [facility] Address: [address] [place] [address] Performed By: #### 5 8410-2 ####[facility] LABIA [id number] [address] [place] Hematocrit (Bld) [Volume fraction] 27.6 % Low 36.0-46.0 [facility] Comment on above: Order Comment: Speci men Type: BLOOD SPECIMENOrdering Facility: [facility] Address: [address] [place] [address] Performed By: #### 5 8410-2 ####[facility] LABCLIA [id number] [place] [address] [place] Hemoglobin (Bld) [Mass/Vol] 8.4 g/dL Low 11.5-15.5 [facility] Comment on above: Order Comment: Speci men Type: BLOOD SPECIMENOrdering Facility: [facility] Address: [address] [place] [address] Performed By: #### 5 8410-2 ####[facility] LABIA [id number] [place] [address] [place] MCH (RBC) [Entitic mass] 25.9 pg Low 26.0-34.0 [facility] Comment on above: Order Comment: Speci men Type: BLOOD SPECIMENOrdering Facility: [facility] Address: [address] [place] [address] Performed By: #### 5 8410-2 ####[facility] [id number] [place] [address] [place] MCHC (RBC) [Mass/Vol] 30.4 g/dL Low 30.5-36.0 [facility] Comment on above: Order Comment: Speci men Type: BLOOD SPECIMENOrdering Facility: [facility] Address: [address] [place] [address] Performed By: #### 5 8410-2 ####[facility] [id number] [place] [address] [place] MCV (RBC) [Entitic vol] 85.2 fL Normal 80.0-100.0 [facility] Comment on above: Order Comment: Speci men Type: BLOOD SPECIMENOrdering Facility: [facility] Address: [address] [place] [address] Performed By: #### 5 8410-2 ####[facility] LABCLIA [id number] [address] [address] [place] Nucleated RBC (Bld) [#/Vol] 0.02 10*3/uL High <0.01 [facility] Comment on above: Order Comment: Speci men Type: BLOOD SPECIMENOrdering Facility: [facility] Address: [address] [place] [address] Performed By: #### 5 8410-2 ####[facility] LABIA [id number] [address], [place] [address] [place] Platelet mean volume (Bld) [Entitic vol] 10.3 fL Normal 9.0-12.7 [facility] Comment on above: Order Comment: Speci men Type: BLOOD SPECIMENOrdering Facility: [facility] Address: [address] [place] [address] Performed By: #### 5 8410-2 ####[facility] LABIA [id number] [place] [address] [place] Platelets (Bld) [#/Vol] 423 10*3/uL High 150-400 [facility] Comment on above: Order Comment: Speci men Type: BLOOD SPECIMENOrdering Facility: [facility] Address: [address] [place] [address] Performed By: #### 5 8410-2 ####[facility] LABIA [id number] [place] [address] [place] RBC (Bld) [#/Vol] 3.24 10*6/uL Low 3.90-5.20 [facility] Comment on above: Order Comment: Speci men Type: BLOOD SPECIMENOrdering Facility: [facility] Address: [address] [place] [address] Performed By: #### 5 8410-2 ####[facility] LABIA [id number] [address], [facility]95 [place] WBC (Bld) [#/Vol] 7.37 10*3/uL Normal 3.70-11.00 [facility] Comment on above: Order Comment: Speci men Type: BLOOD SPECIMENOrdering Facility: [facility] Address: [address] [place] [address] Performed By: #### 5 8410-2 ####[facility] LABCLIA [id number] [place] [id number] [place] CONSULT PROGon 12-08-2024 CONSULT PROG Normal [facility] CONSULT PROG Normal [facility] Comprehensive metabolic 2000 panelon 12-08-2024 Albumin [Mass/Vol] 3.2 g/dL Low 3.9-4.9 [facility] Comment on above: Order Comment: Speci men Type: BLOOD SPECIMENOrdering Facility: [facility] Address: [address] [place] [address] Performed By: #### 2 4323-8, , 2776-06 ####[facility] LABCLIA [id number] [address], [facility]95 [place] ALP [Catalytic activity/Vol] 163 U/L High 34-123 [facility] Comment on above: Order Comment: Speci men Type: BLOOD SPECIMENOrdering Facility: [facility] Address: [address] [place] [address] Performed By: #### 2 4323-8, , 2776- ####[facility] LABCLIA [id number] [place] [id number] [place] ALT [Catalytic activity/Vol] 41 U/L High 7-38 [facility] Comment on above: Order Comment: Speci men Type: BLOOD SPECIMENOrdering Facility: [facility] Address: [address] [place] [address] Performed By: #### 2 4323-8, 72602-2, 2777- ####[facility] LABCLIA [id number] [place] [id number] [place] Anion gap [Moles/Vol] 14 mmol/L Normal 8-15 [facility] Comment on above: Order Comment: Speci men Type: BLOOD SPECIMENOrdering Facility: [facility] Address: [address] [place] [address] Performed By: #### 2 4323-8, 56771-4, 2776-06 ####[facility] LABCLIA [id number] [place] [id number] [place] AST [Catalytic activity/Vol] 30 U/L Normal 13-35 [facility] Comment on above: Order Comment: Speci men Type: BLOOD SPECIMENOrdering Facility: [facility] Address: [address] [place] [address] Performed By: #### 2 4323-8, , 2776-06 ####[facility] LABCLIA [id number] [place] [address] [place] Bilirubin [Mass/Vol] 0.4 mg/dL Normal 0.2-1.3 [facility] Comment on above: Order Comment: Speci men Type: BLOOD SPECIMENOrdering Facility: [facility] Address: [address] [place] [address] Performed By: #### 2 4323-8, , 2776-06 ####[facility] LABCLIA [id number] [place] [id number] [place] Calcium [Mass/Vol] 9.3 mg/dL Normal 8.5-10.2 [facility] Comment on above: Order Comment: Speci men Type: BLOOD SPECIMENOrdering Facility: [facility] Address: [address] [place] [address] Performed By: #### 2 4323-8, , 2776-06 ####[facility] LABCLIA [id number] [place] [id number] [place] Chloride [Moles/Vol] 101 mmol/L Normal 98-107 [facility] Comment on above: Order Comment: Speci men Type: BLOOD SPECIMENOrdering Facility: [facility] Address: [address] [place], [place] [address] Performed By: #### 2 4323-8, , 2776-06 ####[facility] LABCLIA [id number] [place] [id number] [place] CO2 [Moles/Vol] 22 mmol/L Normal 22-30 [facility] Comment on above: Order Comment: Speci men Type: BLOOD SPECIMENOrdering Facility: [facility] Address: [address] [place] [address] Performed By: #### 2 4323-8, , 2776-06 ####[facility] LABIA [id number] [place] [id number] [place] Creatinine [Mass/Vol] 0.91 mg/dL Normal 0.58-0.96 [facility] Comment on above: Order Comment: Speci men Type: BLOOD SPECIMENOrdering Facility: [facility] Address: [address] [place] [address] Performed By: #### 2 4323-8, , 2776-06 ####[facility] LABIA [id number] [place] [id number] [place] Creatinine and Glomerular filtration rate.predicted panel (S/P/Bld) 81 mL/min/1.73m??? Normal >=60 [facility] Comment on above: Order Comment: Speci men Type: BLOOD SPECIMENOrdering Facility: [facility] Address: [address] [place] [address] Result Comment: Zeny mated Glomerular Filtration Rate [...] Performed By: #### 2 4323-8, , 2776-06 ####[facility] LABCLIA [id number] [address] [address] [place] Glucose [Mass/Vol] 112 mg/dL High 74-99 [facility] Comment on above: Order Comment: Speci men Type: BLOOD SPECIMENOrdering Facility: [facility] Address: [address] [place] [address] Result Comment: The [place] Diabetes Association (ADA) provides guidance for cutoff [...] Standards of Medical Care in Diabetes 2016, [place] [employer]. Diabetes Care. 2016.39(Suppl 1). Performed By: #### 2 4323-8, , 2776-06 ####[facility] LABCLIA [id number] [address] [address] [place] Potassium [Moles/Vol] 4.0 mmol/L Normal 3.7-5.1 [facility] Comment on above: Order Comment: Speci men Type: BLOOD SPECIMENOrdering Facility: [facility] Address: [address] [place] [id number] Performed By: #### 2 4323-8, , 2776-06 ####[facility] LABIA [id number] [address] [address] [place] Protein [Mass/Vol] 6.8 g/dL Normal 6.3-8.0 [facility] Comment on above: Order Comment: Speci men Type: BLOOD SPECIMENOrdering Facility: [facility] Address: [address] [place] [address] Performed By: #### 2 4323-8, 88996-8, 1 ####[facility] LABCLIA [id number] [place] [id number] [place] Sodium [Moles/Vol] 137 mmol/L Normal 136-144 [facility] Comment on above: Order Comment: Speci men Type: BLOOD SPECIMENOrdering Facility: [facility] Address: [address] [place] [address] Performed By: #### 2 4323-8, , 2776-06 ####[facility] LABIA [id number] [place] [address] [place] Urea nitrogen [Mass/Vol] 14 mg/dL Normal 7-21 [facility] Comment on above: Order Comment: Florii men Type: BLOOD SPECIMENOrdering Facility: [facility] Address: [address] [place] [address] Performed By: #### 2 4323-8, , 2776-06 ####[facility] LABIA [id number] [place] [address] [place] Fact Xa PPP-aCncon 5 Coagulation factor X activated act Coag Qn (PPP) 0.76 IU/mL High <0.10 [facility] Comment on above: Order Comment: Dora finch Type: BLOOD SPECIMENOrdering Facility: [facility] Address: [address] [place] [address] Result Comment: The recommended therapeutic range for treatment of venous and arterial thrombosis with intravenous unfractionated heparin is an anti Xa activity level of 0.3 to 0.7 IU/mL. In patients with concomitant therapy with thrombolytic agents and/or platelet glycoprotein IIb/IIIa antagonists, the recommended therapeutic range is an anti Xa activity level of 0.2 to 0.5 IU/mL. Performed By: #### 3 217-7 ####[facility] LABCLIA [id number] [place] [address] [place] Coagulation factor X activated act Coag Qn (PPP) 0.55 IU/mL High <0.10 [facility] Comment on above: Order Comment: Dora finch Type: BLOOD SPECIMENOrdering Facility: [facility] Address: [address] [place] [address] Result Comment: The recommended therapeutic range for treatment of venous and arterial thrombosis with intravenous unfractionated heparin is an anti Xa activity level of 0.3 to 0.7 IU/mL. In patients with concomitant therapy with thrombolytic agents and/or platelet glycoprotein IIb/IIIa antagonists, the recommended therapeutic range is an anti Xa activity level of 0.2 to 0.5 IU/mL. Performed By: #### P TTAC, 3217-7 ####[facility] LABIA [id number] [place] [address] [place] IR PICC INSERT PHYSICIANon 0 12-08-2024 IR PICC INSERT PHYSICIAN Normal [facility] Magnesium SerPl-mCncon 12-08 Magnesium [Mass/Vol] 1.9 mg/dL Normal 1.7-2.3 [facility] Comment on above: Order Comment: Dora finch Type: BLOOD SPECIMENOrdering Facility: [facility] Address: [address] [place] [address] Performed By: #### 2 4323-8, 89444-1, 2777-1 ####[facility] LABIA [id number] [place] [address] [place] PTT, ANTICOAGULANT THERAPYon 12-08-2024 aPTT Coag (PPP) [Time] 37.0 s High 23.0-32.4 [facility] Comment on above: Order Comment: Dora finch Type: BLOOD SPECIMENOrdering Facility: [facility] Address: [address] [place] [address] Performed By: #### P TTAC ####[facility] LABIA [id number] [place] [address] [place] aPTT Coag (PPP) [Time] 94.6 s High 23.0-32.4 [facility] Comment on above: Order Comment: Speci men Type: BLOOD SPECIMENOrdering Facility: [facility] Address: [address] [place] [address] Performed By: #### P TTAC ####[facility] LABCLIA [id number] [place] [id number] [place] aPTT Coag (PPP) [Time] 88.0 s High 23.0-32.4 [facility] Comment on above: Order Comment: Speci men Type: BLOOD SPECIMENOrdering Facility: [facility] Address: [address] [place] [address] Performed By: #### P TTAC ####[facility] LABCLIA [id number] [address] [place] [facility] aPTT Coag (PPP) [Time] 56.3 s High 23.0-32.4 [facility] Comment on above: Order Comment: Speci men Type: BLOOD SPECIMENOrdering Facility: [facility] Address: [address] [place] [address] Performed By: #### P TTAC, 3217-7 ####[facility] LABIA [id number] [place] [id number] [place] Phosphate SerPl-mCncon 12-08 Phosphate [Mass/Vol] 4.5 mg/dL Normal 2.7-4.8 [facility] Comment on above: Order Comment: Speci men Type: BLOOD SPECIMENOrdering Facility: [facility] Address: [address] [place] [address] Performed By: #### 2 4323-8, 01501-4, 2777-1 ####[facility] LABCLIA [id number] [place] [id number] [place] ALLIED HEALTHon 12-07-2024 ALLIED HEALTH Normal [facility] CBC panel Auto (Bld)on 12-07 Erythrocyte distribution width (RBC) [Ratio] 20.2 % High 11.5-15.0 [facility] Comment on above: Order Comment: Speci men Type: BLOOD SPECIMENOrdering Facility: [facility] Address: [address] [place] [address] Performed By: #### 5 8410-2 ####[facility] LABIA [id number] [place] [address] [place] Hematocrit (Bld) [Volume fraction] 28.3 % Low 36.0-46.0 [facility] Comment on above: Order Comment: Speci men Type: BLOOD SPECIMENOrdering Facility: [facility] Address: [address] [place] [address] Performed By: #### 5 8410-2 ####[facility] LABIA [id number] [address] [place] Hemoglobin (Bld) [Mass/Vol] 9.0 g/dL Low 11.5-15.5 [facility] Comment on above: Order Comment: Speci men Type: BLOOD SPECIMENOrdering Facility: [facility] Address: [address] [place] [address] Performed By: #### 5 8410-2 ####[facility] LABIA [id number] [place] [address] [place] MCH (RBC) [Entitic mass] 26.5 pg Normal 26.0-34.0 [facility] Comment on above: Order Comment: Speci men Type: BLOOD SPECIMENOrdering Facility: [facility] Address: [address] [place] [address] Performed By: #### 5 8410-2 ####[facility] LABIA [id number] [place] [id number] [place] MCHC (RBC) [Mass/Vol] 31.8 g/dL Normal 30.5-36.0 [facility] Comment on above: Order Comment: Speci men Type: BLOOD SPECIMENOrdering Facility: [facility] Address: [address] [place] [address] Performed By: #### 5 8410-2 ####[facility] [id number] [place] [address] [place] MCV (RBC) [Entitic vol] 83.2 fL Normal 80.0-100.0 [facility] Comment on above: Order Comment: Speci men Type: BLOOD SPECIMENOrdering Facility: [facility] Address: [address] [place] [address] Performed By: #### 5 8410-2 ####[facility] [id number] [place] [address] [place] Nucleated RBC (Bld) [#/Vol] 10*3/uL Normal <0.01 [facility] Comment on above: Order Comment: Speci men Type: BLOOD SPECIMENOrdering Facility: [facility] Address: [address] [place] [address] Performed By: #### 5 8410-2 ####[facility] [id number] [place] [address] [place] Platelet mean volume (Bld) [Entitic vol] 10.0 fL Normal 9.0-12.7 [facility] Comment on above: Order Comment: Speci men Type: BLOOD SPECIMENOrdering Facility: [facility] Address: [address] [place] [address] Performed By: #### 5 8410-2 ####[facility] LABIA [id number] [place] [address] [place] Platelets (Bld) [#/Vol] 414 10*3/uL High 150-400 [facility] Comment on above: Order Comment: Speci men Type: BLOOD SPECIMENOrdering Facility: [facility] Address: [address] [place] [address] Performed By: #### 5 8410-2 ####[facility] LABCLIA [id number] [address] [address] [place] RBC (Bld) [#/Vol] 3.40 10*6/uL Low 3.90-5.20 [facility] Comment on above: Order Comment: Speci men Type: BLOOD SPECIMENOrdering Facility: [facility] Address: [address] [place] [address] Performed By: #### 5 8410-2 ####[facility] LABIA [id number] [address] [address] [place] WBC (Bld) [#/Vol] 7.16 10*3/uL Normal 3.70-11.00 [facility] Comment on above: Order Comment: Speci men Type: BLOOD SPECIMENOrdering Facility: [facility] Address: [address] [place] [address] Performed By: #### 5 8410-2 ####[facility] LABIA [id number] [place] [id number] [place] CONSULT PROGon 12-07-2024 CONSULT PROG Normal [facility] Comprehensive metabolic 2000 panelon 12-07-2024 Albumin [Mass/Vol] 3.3 g/dL Low 3.9-4.9 [facility] Comment on above: Order Comment: Speci men Type: BLOOD SPECIMENOrdering Facility: [facility] Address: [address] [place] [address] Performed By: #### 2 4323-8, 98585-5, 27712-25 ####[facility] LABIA [id number] [place] [id number] [place] ALP [Catalytic activity/Vol] 185 U/L High 34-123 [facility] Comment on above: Order Comment: Speci men Type: BLOOD SPECIMENOrdering Facility: [facility] Address: [address] [place], [place] [address] Performed By: #### 2 4323-8, , 2776-06 ####[facility] LABCLIA [id number] [facility] [address] [address] [place] ALT [Catalytic activity/Vol] 53 U/L High 7-38 [facility] Comment on above: Order Comment: Speci men Type: BLOOD SPECIMENOrdering Facility: [facility] Address: [address] [place] [address] Performed By: #### 2 432-8, , 2776-06 ####[facility] LABCLIA [id number] [address] [address] [place] Anion gap [Moles/Vol] 16 mmol/L High 8-15 [facility] Comment on above: Order Comment: Speci men Type: BLOOD SPECIMENOrdering Facility: [facility] Address: [address] [place] [address] Performed By: #### 2 8, , 2776-06 ####[facility] LABCLIA [id number] [address] [address] [place] AST [Catalytic activity/Vol] 40 U/L High 13-35 [facility] Comment on above: Order Comment: Speci men Type: BLOOD SPECIMENOrdering Facility: [facility] Address: [address] [place] [address] Performed By: #### 2 4323-8, , 2776-06 ####[facility] LABCLIA [id number] [address] [address] [place] Bilirubin [Mass/Vol] 0.6 mg/dL Normal 0.2-1.3 [facility] Comment on above: Order Comment: Speci men Type: BLOOD SPECIMENOrdering Facility: [facility] Address: [address] [place], [place] [address] Performed By: #### 2 4323-8, , 2776-06 ####[facility] LABCLIA [id number] [address] [place] [address] [place] Calcium [Mass/Vol] 9.0 mg/dL Normal 8.5-10.2 [facility] Comment on above: Order Comment: Speci men Type: BLOOD SPECIMENOrdering Facility: [facility] Address: [address] [place] [address] Performed By: #### 2 4323-8, , 2776-06 ####[facility] LABCLIA [id number] [place] [id number] [place] Chloride [Moles/Vol] 101 mmol/L Normal 98-107 [facility] Comment on above: Order Comment: Speci men Type: BLOOD SPECIMENOrdering Facility: [facility] Address: [address] [place] [address] Performed By: #### 2 4323-8, , 2776-06 ####[facility] LABCLIA [id number] [place] [address] [place] CO2 [Moles/Vol] 21 mmol/L Low 22-30 [facility] Comment on above: Order Comment: Speci men Type: BLOOD SPECIMENOrdering Facility: [facility] Address: [address] [place] [address] Performed By: #### 2 4323-8, , 2776-06 ####[facility] LABCLIA [id number] [place] [id number] [place] Creatinine [Mass/Vol] 1.04 mg/dL High 0.58-0.96 [facility] Comment on above: Order Comment: Speci men Type: BLOOD SPECIMENOrdering Facility: [facility] Address: [address] [place] [address] Performed By: #### 2 4323-8, , 2776-06 ####[facility] LABCLIA [id number] [address] [address] [place] Creatinine and Glomerular filtration rate.predicted panel (S/P/Bld) 69 mL/min/1.73m??? Normal >=60 [facility] Comment on above: Order Comment: Dora finch Type: BLOOD SPECIMENOrdering Facility: [facility] Address: [address] [place] [address] Result Comment: Zeny mated Glomerular Filtration Rate [...] Performed By: #### 2 4323-8, , 2776-06 ####[facility] LABIA [id number] [place] [id number] [place] Glucose [Mass/Vol] 178 mg/dL High 74-99 [facility] Comment on above: Order Comment: Dora finch Type: BLOOD SPECIMENOrdering Facility: [facility] Address: [address] [place] [address] Result Comment: The [place] Diabetes Association (ADA) provides guidance for cutoff [...] Standards of Medical Care in Diabetes 2016, [place] [employer]. Diabetes Care. 2016.39(Suppl 1). Performed By: #### 2 4323-8, 62718-8, 2776- ####[facility] LABIA [id number] [address] [address] [place] Potassium [Moles/Vol] 3.3 mmol/L Low 3.7-5.1 [facility] Comment on above: Order Comment: Speci men Type: BLOOD SPECIMENOrdering Facility: [facility] Address: [address] [place] [address] Performed By: #### 2 4323-8, , 2776-06 ####[facility] LABCLIA [id number] [facility] [place] [id number] [place] Protein [Mass/Vol] 7.0 g/dL Normal 6.3-8.0 [facility] Comment on above: Order Comment: Speci men Type: BLOOD SPECIMENOrdering Facility: [facility] Address: [address] [place] [address] Performed By: #### 2 4323-8, , 2776-06 ####[facility] LABCLIA [id number] [place] [address] [place] Sodium [Moles/Vol] 138 mmol/L Normal 136-144 [facility] Comment on above: Order Comment: Speci men Type: BLOOD SPECIMENOrdering Facility: [facility] Address: [address] [place] [address] Performed By: #### 2 4323-8, , 2776-06 ####[facility] LABCLIA [id number] [place] [id number] [place] Urea nitrogen [Mass/Vol] 11 mg/dL Normal 7-21 [facility] Comment on above: Order Comment: Speci men Type: BLOOD SPECIMENOrdering Facility: [facility] Address: [address] [place] [address] Performed By: #### 2 4323-8, , 2776-06 ####[facility] LABCLIA [id number] [address] [address] [place] Fact Xa PPP-aCncon 5 Coagulation factor X activated act Coag Qn (PPP) 0.31 IU/mL High <0.10 [facility] Comment on above: Order Comment: Speci men Type: BLOOD SPECIMENOrdering Facility: [facility] Address: [address] [place] [address] Result Comment: The recommended therapeutic range for treatment of venous and arterial thrombosis with intravenous unfractionated heparin is an anti Xa activity level of 0.3 to 0.7 IU/mL. In patients with concomitant therapy with thrombolytic agents and/or platelet glycoprotein IIb/IIIa antagonists, the recommended therapeutic range is an anti Xa activity level of 0.2 to 0.5 IU/mL. Performed By: #### 3 217-7 ####[facility] [id number] [place] [address] [place] Magnesium SerPl-mCncon 12-07 Magnesium [Mass/Vol] 2.0 mg/dL Normal 1.7-2.3 [facility] Comment on above: Order Comment: Speci men Type: BLOOD SPECIMENOrdering Facility: [facility] Address: [address] [place] [address] Performed By: #### 2 4323-8, 86867-8, 2777-1 ####[facility] LABIA [id number] [place] [address] [place] NUTRITIONon 12-07-2024 NUTRITION Normal [facility] PTT, ANTICOAGULANT THERAPYon 12-07-2024 aPTT Coag (PPP) [Time] 47.4 s High 23.0-32.4 [facility] Comment on above: Order Comment: Speci men Type: BLOOD SPECIMENOrdering Facility: [facility] Address: [address] [place] [address] Performed By: #### P TTAC ####[facility] [id number] [address] [place] aPTT Coag (PPP) [Time] 41.6 s High 23.0-32.4 [facility] Comment on above: Order Comment: Speci men Type: BLOOD SPECIMENOrdering Facility: [facility] Address: [address] [place] [address] Result Comment: Inte rpret with caution. Sample centrifuged greater than 1 hour from collection time. According to Clinical and Laboratory Standards [employer] guidelines, results could be falsely decreased due to heparin neutralization by in vitro release of platelet factor 4. Suggest correlation with clinical findings and redraw if indicated. Performed By: #### P TTAC ####[facility] LABCLIA [id number] [place] [address] [place] Phosphate SerPl-mCncon 12-07 Phosphate [Mass/Vol] 4.5 mg/dL Normal 2.7-4.8 [facility] Comment on above: Order Comment: Speci men Type: BLOOD SPECIMENOrdering Facility: [facility] Address: [address] [place] [address] Performed By: #### 2 4323-8, 52945-7, 2777-1 ####[facility] LABCLIA [id number] [place] [id number] [place] ALLIED HEALTHon 12-06-2024 ALLIED HEALTH Normal [facility] ALLIED HEALTH Normal [facility] ANES POSTPROC EVALon 025 ANES POSTPROC EVAL Normal [facility] ANES PRE-OPon 12-06-2024 ANES PRE-OP Normal [facility] CASE MANAGEMon 12-06-2024 CASE MANAGEM Normal [facility] CBC panel Auto (Bld)on 12-06 Erythrocyte distribution width (RBC) [Ratio] 19.8 % High 11.5-15.0 [facility] Comment on above: Order Comment: Speci men Type: BLOOD SPECIMENOrdering Facility: [facility] Address: [address] [place] [address] Performed By: #### 5 8410-2 ####[facility] LABCLIA [id number] [place] [id number] [place] Hematocrit (Bld) [Volume fraction] 19.8 % Low 36.0-46.0 [facility] Comment on above: Order Comment: Speci men Type: BLOOD SPECIMENOrdering Facility: [facility] Address: [address] [place] [address] Performed By: #### 5 8410-2 ####[facility] LABIA [id number] [place] [address] [place] Hemoglobin (Bld) [Mass/Vol] 6.3 g/dL Low 11.5-15.5 [facility] Comment on above: Order Comment: Speci men Type: BLOOD SPECIMENOrdering Facility: [facility] Address: [address] [place] [address] Performed By: #### 5 8410-2 ####[facility] [id number] [place] [address] [place] MCH (RBC) [Entitic mass] 26.1 pg Normal 26.0-34.0 [facility] Comment on above: Order Comment: Speci men Type: BLOOD SPECIMENOrdering Facility: [facility] Address: [address] [place] [address] Performed By: #### 5 8410-2 ####[facility] [id number] [address] [place] MCHC (RBC) [Mass/Vol] 31.8 g/dL Normal 30.5-36.0 [facility] Comment on above: Order Comment: Speci men Type: BLOOD SPECIMENOrdering Facility: [facility] Address: [address] [place] [address] Performed By: #### 5 8410-2 ####[facility] [id number] [place] [address] [place] MCV (RBC) [Entitic vol] 82.2 fL Normal 80.0-100.0 [facility] Comment on above: Order Comment: Speci men Type: BLOOD SPECIMENOrdering Facility: [facility] Address: [address] [place] [address] Performed By: #### 5 8410-2 ####[facility] LABCLIA [id number] [address] [place] [address] [place] Nucleated RBC (Bld) [#/Vol] 10*3/uL Normal <0.01 [facility] Comment on above: Order Comment: Speci men Type: BLOOD SPECIMENOrdering Facility: [facility] Address: [address] [place] [address] Performed By: #### 5 8410-2 ####[facility] LABIA [id number] [address], [facility] [place] Platelet mean volume (Bld) [Entitic vol] 8.9 fL Low 9.0-12.7 [facility] Comment on above: Order Comment: Speci men Type: BLOOD SPECIMENOrdering Facility: [facility] Address: [address] [place] [address] Performed By: #### 5 8410-2 ####[facility] LABIA [id number] [place] [address] [place] Platelets (Bld) [#/Vol] 496 10*3/uL High 150-400 [facility] Comment on above: Order Comment: Speci men Type: BLOOD SPECIMENOrdering Facility: [facility] Address: [address] [place] [address] Performed By: #### 5 8410-2 ####[facility] LABIA [id number] [place] [address] [place] RBC (Bld) [#/Vol] 2.41 10*6/uL Low 3.90-5.20 [facility] Comment on above: Order Comment: Speci men Type: BLOOD SPECIMENOrdering Facility: [facility] Address: [address] [place] [address] Performed By: #### 5 8410-2 ####[facility] LABIA [id number] [place] [id number] [place] WBC (Bld) [#/Vol] 8.40 10*3/uL Normal 3.70-11.00 [facility] Comment on above: Order Comment: Speci men Type: BLOOD SPECIMENOrdering Facility: [facility] Address: [address] [place] [address] Performed By: #### 5 8410-2 ####[facility] LABCLIA [id number] [place] [address] [place] Erythrocyte distribution width (RBC) [Ratio] 19.0 % High 11.5-15.0 [facility] Comment on above: Order Comment: Speci men Type: BLOOD SPECIMENOrdering Facility: [facility] Address: [address] [place] [address] Performed By: #### 5 8410-2 ####[facility] LABCLIA [id number] [address] [place] Hematocrit (Bld) [Volume fraction] 29.1 % Low 36.0-46.0 [facility] Comment on above: Order Comment: Speci men Type: BLOOD SPECIMENOrdering Facility: [facility] Address: [address] [place] [address] Performed By: #### 5 8410-2 ####[facility] LABCLIA [id number] [place] [address] [place] Hemoglobin (Bld) [Mass/Vol] 9.1 g/dL Low 11.5-15.5 [facility] Comment on above: Order Comment: Speci men Type: BLOOD SPECIMENOrdering Facility: [facility] Address: [address] [place] [address] Performed By: #### 5 8410-2 ####[facility] LABCLIA [id number] [place] [id number] [place] MCH (RBC) [Entitic mass] 25.7 pg Low 26.0-34.0 [facility] Comment on above: Order Comment: Speci men Type: BLOOD SPECIMENOrdering Facility: [facility] Address: [address] [place] [address] Performed By: #### 5 8410-2 ####[facility] [id number] [address] [place] MCHC (RBC) [Mass/Vol] 31.3 g/dL Normal 30.5-36.0 [facility] Comment on above: Order Comment: Speci men Type: BLOOD SPECIMENOrdering Facility: [facility] Address: [address] [place] [address] Performed By: #### 5 8410-2 ####[facility] [id number] [place] [address] [place] MCV (RBC) [Entitic vol] 82.2 fL Normal 80.0-100.0 [facility] Comment on above: Order Comment: Speci men Type: BLOOD SPECIMENOrdering Facility: [facility] Address: [address] [place] [address] Performed By: #### 5 8410-2 ####[facility] [id number] [place] [address] [place] Nucleated RBC (Bld) [#/Vol] 10*3/uL Normal <0.01 [facility] Comment on above: Order Comment: Speci men Type: BLOOD SPECIMENOrdering Facility: [facility] Address: [address] [place] [address] Performed By: #### 5 8410-2 ####[facility] [id number] [place] [address] [place] Platelet mean volume (Bld) [Entitic vol] 9.3 fL Normal 9.0-12.7 [facility] Comment on above: Order Comment: Speci men Type: BLOOD SPECIMENOrdering Facility: [facility] Address: [address] [place] [address] Performed By: #### 5 8410-2 ####[facility] LABCLIA [id number] [place] [address] [place] Platelets (Bld) [#/Vol] 474 10*3/uL High 150-400 [facility] Comment on above: Order Comment: Speci men Type: BLOOD SPECIMENOrdering Facility: [facility] Address: [address] [place] [address] Performed By: #### 5 8410-2 ####[facility] LABIA [id number] [place] [address] [place] RBC (Bld) [#/Vol] 3.54 10*6/uL Low 3.90-5.20 [facility] Comment on above: Order Comment: Speci men Type: BLOOD SPECIMENOrdering Facility: [facility] Address: [address] [place] [address] Performed By: #### 5 8410-2 ####[facility] [id number] [place] [address] [place] WBC (Bld) [#/Vol] 8.80 10*3/uL Normal 3.70-11.00 [facility] Comment on above: Order Comment: Speci men Type: BLOOD SPECIMENOrdering Facility: [facility] Address: [address] [place] [address] Performed By: #### 5 8410-2 ####[facility] LABIA [id number] [place] [address] [place] CK SerPl-cCncon 12-06-2024 CK [Catalytic activity/Vol] 9 U/L Low 42-196 [facility] Comment on above: Order Comment: Speci men Type: BLOOD SPECIMENOrdering Facility: [facility] Address: [address] [place] [address] Performed By: #### 2 157-6, 27713-0, 33085-1, 2777-1 ####[facility] LABIA [id number] [address] [address] [place] CONSULT PROGon 12-06-2024 CONSULT PROG Normal [facility] Comprehensive metabolic 2000 panelon 12-06-2024 Albumin [Mass/Vol] 3.3 g/dL Low 3.9-4.9 [facility] Comment on above: Order Comment: Speci men Type: BLOOD SPECIMENOrdering Facility: [facility] Address: [address] [place] [address] Performed By: #### 2 157-6, 46931-0, 44184-9, 2776- ####[facility] LABCLIA [id number] [place] [id number] [place] ALP [Catalytic activity/Vol] 191 U/L High 34-123 [facility] Comment on above: Order Comment: Speci men Type: BLOOD SPECIMENOrdering Facility: [facility] Address: [address] [place] [address] Performed By: #### 2 157-6, 13655-5, 42503-9, 2776- ####[facility] LABIA [id number] [place] [id number] [place] ALT [Catalytic activity/Vol] 44 U/L High 7-38 [facility] Comment on above: Order Comment: Speci men Type: BLOOD SPECIMENOrdering Facility: [facility] Address: [address] [place] [address] Performed By: #### 2 157-6, 01469-7, 15509-2, 2776- ####[facility] LABIA [id number] [address] [address] [place] Anion gap [Moles/Vol] 12 mmol/L Normal 8-15 [facility] Comment on above: Order Comment: Speci men Type: BLOOD SPECIMENOrdering Facility: [facility] Address: [address] [place] [address] Performed By: #### 2 157-6, 58839-2, 08873-8, 2777-1 ####[facility] LABCLIA [id number] [address] [address] [place] AST [Catalytic activity/Vol] 36 U/L High 13-35 [facility] Comment on above: Order Comment: Speci men Type: BLOOD SPECIMENOrdering Facility: [facility] Address: [address] [place] [address] Performed By: #### 2 157-6, 62580-7, , 2776-06 ####[facility] LABCLIA [id number] [address] [address] [place] Bilirubin [Mass/Vol] 0.7 mg/dL Normal 0.2-1.3 [facility] Comment on above: Order Comment: Speci men Type: BLOOD SPECIMENOrdering Facility: [facility] Address: [address] [place] [address] Performed By: #### 2 157-6, 36521-8, , 2776-06 ####[facility] LABIA [id number] [address] [address] [place] Calcium [Mass/Vol] 8.8 mg/dL Normal 8.5-10.2 [facility] Comment on above: Order Comment: Speci men Type: BLOOD SPECIMENOrdering Facility: [facility] Address: [address] [place] [address] Performed By: #### 2 157-6, 71903-0, , 2776-06 ####[facility] LABCLIA [id number] [address] [address] [place] Chloride [Moles/Vol] 102 mmol/L Normal 98-107 [facility] Comment on above: Order Comment: Speci men Type: BLOOD SPECIMENOrdering Facility: [facility] Address: [address] [place] [address] Performed By: #### 2 157-6, 19360-6, 95644-1, 2777-1 ####[facility] LABIA [id number] [address] [address] [place] CO2 [Moles/Vol] 22 mmol/L Normal 22-30 [facility] Comment on above: Order Comment: Speci men Type: BLOOD SPECIMENOrdering Facility: [facility] Address: [address] [place] [address] Performed By: #### 2 157-6, 56568-4, 08728-7, 2776- ####[facility] LABIA [id number] [address] [address] [place] Creatinine [Mass/Vol] 0.95 mg/dL Normal 0.58-0.96 [facility] Comment on above: Order Comment: Speci men Type: BLOOD SPECIMENOrdering Facility: [facility] Address: [address] [place] [address] Performed By: #### 2 157-6, 34213-5, , 2776- ####[facility] [id number] [address] [address] [place] Creatinine and Glomerular filtration rate.predicted panel (S/P/Bld) 77 mL/min/1.73m??? Normal >=60 [facility] Comment on above: Order Comment: Speci men Type: BLOOD SPECIMENOrdering Facility: [facility] Address: [address] [place] [address] Result Comment: Zeny mated Glomerular Filtration Rate [...] actual GFR. Performed By: #### 2 157-6, 76648-7, 98375-9, 2777-1 ####[facility] LABIA [id number] [address] [address] [place] Glucose [Mass/Vol] 136 mg/dL High 74-99 [facility] Comment on above: Order Comment: Speci men Type: BLOOD SPECIMENOrdering Facility: [facility] Address: [address] [place] [address] Result Comment: The [place] [employer] (ADA) provides guidance for cutoff [...] Standards of Medical Care in Diabetes 2016, [place] [employer]. Diabetes Care. 2016.39(Suppl 1). Performed By: #### 2 157-6, 79453-8, 22691-8, 7- ####[facility] LABCLIA [id number] [place] [address] [place] Potassium [Moles/Vol] 3.8 mmol/L Normal 3.7-5.1 [facility] Comment on above: Order Comment: Speci men Type: BLOOD SPECIMENOrdering Facility: [facility] Address: [address] [place] [address] Performed By: #### 2 157-6, 70125-8, 70058-9, 7-1 ####[facility] LABCLIA [id number] [place] [id number] [place] Protein [Mass/Vol] 6.6 g/dL Normal 6.3-8.0 [facility] Comment on above: Order Comment: Speci men Type: BLOOD SPECIMENOrdering Facility: [facility] Address: [address] [place] [address] Performed By: #### 2 157-6, 37847-2, 81085-0, 7-1 ####[facility] LABIA [id number] [place] [address] [place] Sodium [Moles/Vol] 136 mmol/L Normal 136-144 [facility] Comment on above: Order Comment: Speci men Type: BLOOD SPECIMENOrdering Facility: [facility] Address: [address] [place] [address] Performed By: #### 2 157-6, 75991-9, 20167-8, 2777-1 ####[facility] LABIA [id number] [place] [address] [place] Urea nitrogen [Mass/Vol] 12 mg/dL Normal 7-21 [facility] Comment on above: Order Comment: Speci men Type: BLOOD SPECIMENOrdering Facility: [facility] Address: [address] [place] [address] Performed By: #### 2 157-6, 17593-3, 86502-1, 2777-1 ####[facility] [id number] [place] [address] [place] Fact Xa PPP-aCncon 5 Coagulation factor X activated act Coag Qn (PPP) 0.64 IU/mL High <0.10 [facility] Comment on above: Order Comment: Speci men Type: BLOOD SPECIMENOrdering Facility: [facility] Address: [address] [place] [address] Result Comment: The recommended therapeutic range for treatment of venous and arterial thrombosis with intravenous unfractionated heparin is an anti Xa activity level of 0.3 to 0.7 IU/mL. In patients with concomitant therapy with thrombolytic agents and/or platelet glycoprotein IIb/IIIa antagonists, the recommended therapeutic range is an anti Xa activity level of 0.2 to 0.5 IU/mL. Performed By: #### 3 217-7 ####[facility] [id number] [place] [id number] [place] Coagulation factor X activated act Coag Qn (PPP) 0.48 IU/mL High <0.10 [facility] Comment on above: Order Comment: Dora finch Type: BLOOD SPECIMENOrdering Facility: [facility] Address: [address] [place] [address] Result Comment: The recommended therapeutic range for treatment of venous and arterial thrombosis with intravenous unfractionated heparin is an anti Xa activity level of 0.3 to 0.7 IU/mL. In patients with concomitant therapy with thrombolytic agents and/or platelet glycoprotein IIb/IIIa antagonists, the recommended therapeutic range is an anti Xa activity level of 0.2 to 0.5 IU/mL. Performed By: #### 3 217-7 ####[facility] LABIA [id number] [place] [address] [place] HISTORY PHYSICALon HISTORY PHYSICAL Normal [facility] Magnesium SerPl-mCncon 12-06 Magnesium [Mass/Vol] 1.5 mg/dL Low 1.7-2.3 [facility] Comment on above: Order Comment: Dora finch Type: BLOOD SPECIMENOrdering Facility: [facility] Address: [address] [place] [address] Performed By: #### 2 157-6, 19939-6, 82339-6, 2777-1 ####[facility] LABIA [id number] [place] [address] [place] NUTRITIONon 12-06-2024 NUTRITION Normal [facility] PT EDon 12-06-2024 PT ED Normal [facility] PT panel Coag (PPP)on 2024 INR Coag (PPP) [Relative time] 1.1 {INR} Normal 0.9-1.3 [facility] Comment on above: Order Comment: Dora finch Type: BLOOD SPECIMENOrdering Facility: [facility] Address: [address] [place] [address] Result Comment: Yamileth min K Antagonist (VKA) Therapeutic Range: INR 2 to 3 (Target INR of 2.5)Note: For patients treated with VKA drugs, such as warfarin, the [place] [employer] 2012 Guideline recommends [...] al. Chest 2012, 141:7S-47SMarkel RA, et al. [facility] 2017, 70: 252-289 Performed By: #### 3 4528-0, 23057-8 ####[facility]IA [id number] [place] [address] [place] PT Coag (PPP) [Time] 11.9 s Normal 9.7-13.0 [facility] Comment on above: Order Comment: Speci men Type: BLOOD SPECIMENOrdering Facility: [facility] Address: [address] [place] [address] Performed By: #### 3 4528-0, 42417-8 ####[facility] [id number] [place] [address] [place] PTT, ANTICOAGULANT THERAPYon 12-06-2024 aPTT Coag (PPP) [Time] 58.4 s High 23.0-32.4 [facility] Comment on above: Order Comment: Speci men Type: BLOOD SPECIMENOrdering Facility: [facility] Address: [address] [place] [address] Performed By: #### P TTAC ####[facility] [id number] [place] [address] [place] Phosphate SerPl-mCncon 12-06 Phosphate [Mass/Vol] 2.8 mg/dL Normal 2.7-4.8 [facility] Comment on above: Order Comment: Speci men Type: BLOOD SPECIMENOrdering Facility: [facility] Address: [address] [place] [address] Performed By: #### 2 157-6, 80398-8, 96524-8, 2777-1 ####[facility] LABCLIA [id number] [place] [id number] [place] aPTT PPPon 12-06-2024 aPTT Coag (PPP) [Time] 53.0 s High 23.0-32.4 [facility] Comment on above: Order Comment: Speci men Type: BLOOD SPECIMENOrdering Facility: [facility] Address: [address] [place] [address] Performed By: #### 3 4528-0, 10170-7 ####[facility]CL[facility] [id number] [place] [id number] [place] ALLIED HEALTHon 12-05-2024 ALLIED HEALTH Normal [facility] ANES POSTPROC EVALon 025 ANES POSTPROC EVAL Normal [facility] ANES PRE-OPon 12-05-2024 ANES PRE-OP Normal [facility] CASE MANAGEMon 12-05-2024 CASE MANAGEM Normal [facility] CBC panel Auto (Bld)on 12-05 Hematocrit (Bld) [Volume fraction] 29.6 % Low 36.0-46.0 [facility] Comment on above: Order Comment: Speci men Type: BLOOD SPECIMENOrdering Facility: [facility] Address: [address] [place] [address] Performed By: #### 5 8410-2 ####[facility]CL[facility] [id number] [place] [id number] [place] Hemoglobin (Bld) [Mass/Vol] 9.0 g/dL Low 11.5-15.5 [facility] Comment on above: Order Comment: Speci men Type: BLOOD SPECIMENOrdering Facility: [facility] Address: [address] [place] [address] Performed By: #### 5 8410-2 ####[facility] [id number] [address], [place] [address] [place] MCH (RBC) [Entitic mass] 25.4 pg Low 26.0-34.0 [facility] Comment on above: Order Comment: Speci men Type: BLOOD SPECIMENOrdering Facility: [facility] Address: [address] [place] [address] Performed By: #### 5 8410-2 ####[facility] [id number] [address], [place] [address] [place] MCV (RBC) [Entitic vol] 83.4 fL Normal 80.0-100.0 [facility] Comment on above: Order Comment: Speci men Type: BLOOD SPECIMENOrdering Facility: [facility] Address: [address] [place] [address] Performed By: #### 5 8410-2 ####[facility] LABIA [id number] [place] [address] [place] Nucleated RBC (Bld) [#/Vol] 10*3/uL Normal <0.01 [facility] Comment on above: Order Comment: Speci men Type: BLOOD SPECIMENOrdering Facility: [facility] Address: [address] [place] [address] Performed By: #### 5 8410-2 ####[facility] LABCLIA [id number] [place] [address] [place] Platelets (Bld) [#/Vol] 438 10*3/uL High 150-400 [facility] Comment on above: Order Comment: Speci men Type: BLOOD SPECIMENOrdering Facility: [facility] Address: [address] [place] [address] Performed By: #### 5 8410-2 ####[facility] LABIA [id number] [place] [address] [place] RBC (Bld) [#/Vol] 3.55 10*6/uL Low 3.90-5.20 [facility] Comment on above: Order Comment: Speci men Type: BLOOD SPECIMENOrdering Facility: [facility] Address: [address] [place] [address] Performed By: #### 5 8410-2 ####[facility] LABCLIA [id number] [place] [address] [place] WBC (Bld) [#/Vol] 6.92 10*3/uL Normal 3.70-11.00 [facility] Comment on above: Order Comment: Speci men Type: BLOOD SPECIMENOrdering Facility: [facility] Address: [address] [place] [address] Performed By: #### 5 8410-2 ####[facility] LABCLIA [id number] [place] [address] [place] CONSULT PROGon 12-05-2024 CONSULT PROG Normal [facility] CONSULT PROG Normal [facility] CONSULT PROG Normal [facility] Comprehensive metabolic 2000 panelon 12-05-2024 Albumin [Mass/Vol] 3.4 g/dL Low 3.9-4.9 [facility] Comment on above: Order Comment: Speci men Type: BLOOD SPECIMENOrdering Facility: [facility] Address: [address] [place] [address] Performed By: #### 2 4323-8, , 2776- ####[facility] LABCLIA [id number] [place] [id number] [place] ALP [Catalytic activity/Vol] 189 U/L High 34-123 [facility] Comment on above: Order Comment: Speci men Type: BLOOD SPECIMENOrdering Facility: [facility] Address: [address] [place] [address] Performed By: #### 2 4323-8, 25568-0, 2777-1 ####[facility] LABCLIA [id number] [address] [place] [address] [place] ALT [Catalytic activity/Vol] 41 U/L High 7-38 [facility] Comment on above: Order Comment: Speci men Type: BLOOD SPECIMENOrdering Facility: [facility] Address: [address] [place] [address] Performed By: #### 2 4323-8, 54057-4, 2776-06 ####[facility] LABCLIA [id number] [address], [facility]95 [place] Anion gap [Moles/Vol] 12 mmol/L Normal 8-15 [facility] Comment on above: Order Comment: Speci men Type: BLOOD SPECIMENOrdering Facility: [facility] Address: [address] [place] [address] Performed By: #### 2 4323-8, , 2776-06 ####[facility] LABCLIA [id number] [place] [address] [place] AST [Catalytic activity/Vol] 33 U/L Normal 13-35 [facility] Comment on above: Order Comment: Speci men Type: BLOOD SPECIMENOrdering Facility: [facility] Address: [address] [place] [address] Performed By: #### 2 4323-8, , 2776-06 ####[facility] LABCLIA [id number] [address], [facility]95 [place] Bilirubin [Mass/Vol] 0.8 mg/dL Normal 0.2-1.3 [facility] Comment on above: Order Comment: Speci men Type: BLOOD SPECIMENOrdering Facility: [facility] Address: [address] [place] [address] Performed By: #### 2 4323-8, , 2776-06 ####[facility] LABCLIA [id number] [address] [address] [place] Calcium [Mass/Vol] 9.7 mg/dL Normal 8.5-10.2 [facility] Comment on above: Order Comment: Speci men Type: BLOOD SPECIMENOrdering Facility: [facility] Address: [address] [place], [place] [address] Performed By: #### 2 4323-8, , 2776-06 ####[facility] LABCLIA [id number] [facility] [address] [place] [address] [place] Chloride [Moles/Vol] 99 mmol/L Normal 98-107 [facility] Comment on above: Order Comment: Speci men Type: BLOOD SPECIMENOrdering Facility: [facility] Address: [address] [place] [address] Performed By: #### 2 4323-8, , 2776-06 ####[facility] LABCLIA [id number] [place] [id number] [place] CO2 [Moles/Vol] 25 mmol/L Normal 22-30 [facility] Comment on above: Order Comment: Speci men Type: BLOOD SPECIMENOrdering Facility: [facility] Address: [address] [place] [address] Performed By: #### 2 4323-8, , 2776-06 ####[facility] LABCLIA [id number] [address] [place] [address] [place] Creatinine [Mass/Vol] 0.93 mg/dL Normal 0.58-0.96 [facility] Comment on above: Order Comment: Speci men Type: BLOOD SPECIMENOrdering Facility: [facility] Address: [address] [place] [address] Performed By: #### 2 4323-8, , 2776-06 ####[facility] LABCLIA [id number] [facility] [address] [place] [address] [place] Creatinine and Glomerular filtration rate.predicted panel (S/P/Bld) 79 mL/min/1.73m??? Normal >=60 [facility] Comment on above: Order Comment: Dora finch Type: BLOOD SPECIMENOrdering Facility: [facility] Address: [address] [place] [address] Result Comment: Zeny mated Glomerular Filtration Rate [...] actual GFR. Performed By: #### 2 4323-8, 38568-1, 2776-06 ####[facility] LABIA [id number] [place] [address] [place] Glucose [Mass/Vol] 91 mg/dL Normal 74-99 [facility] Comment on above: Order Comment: Dora finch Type: BLOOD SPECIMENOrdering Facility: [facility] Address: [address] [place] [address] Result Comment: The [place] Diabetes Association (ADA) provides guidance for cutoff [...] Standards of Medical Care in Diabetes 2016, [place] [employer]. Diabetes Care. 2016.39(Suppl 1). Performed By: #### 2 4323-8, 18979-7, 2776-06 ####[facility] LABIA [id number] [address] [address] [place] Potassium [Moles/Vol] 3.8 mmol/L Normal 3.7-5.1 [facility] Comment on above: Order Comment: Speci men Type: BLOOD SPECIMENOrdering Facility: [facility] Address: [address] [place], [place] [address] Performed By: #### 2 4323-8, , 2776-06 ####[facility] LABCLIA [id number] [address] [address] [place] Protein [Mass/Vol] 6.9 g/dL Normal 6.3-8.0 [facility] Comment on above: Order Comment: Speci men Type: BLOOD SPECIMENOrdering Facility: [facility] Address: [address] [place] [address] Performed By: #### 2 4323-8, , 2776-06 ####[facility] LABCLIA [id number] [place] [id number] [place] Sodium [Moles/Vol] 136 mmol/L Normal 136-144 [facility] Comment on above: Order Comment: Speci men Type: BLOOD SPECIMENOrdering Facility: [facility] Address: [address] [place] [address] Performed By: #### 2 4323-8, , 2776-06 ####[facility] LABIA [id number] [place] [address] [place] Urea nitrogen [Mass/Vol] 9 mg/dL Normal 7-21 [facility] Comment on above: Order Comment: Speci men Type: BLOOD SPECIMENOrdering Facility: [facility] Address: [address] [place], [place] [address] Performed By: #### 2 4323-8, , 2776-06 ####[facility] LABIA [id number] [place] [id number] [place] Fact Xa PPP-aCncon 5 Coagulation factor X activated act Coag Qn (PPP) <0.10 Normal <0.10 [facility] Comment on above: Order Comment: Speci men Type: BLOOD SPECIMENOrdering Facility: [facility] Address: [address] [place] [address] Result Comment: The recommended therapeutic range for treatment of venous and arterial thrombosis with intravenous unfractionated heparin is an anti Xa activity level of 0.3 to 0.7 IU/mL. In patients with concomitant therapy with thrombolytic agents and/or platelet glycoprotein IIb/IIIa antagonists, the recommended therapeutic range is an anti Xa activity level of 0.2 to 0.5 IU/mL. Performed By: #### 3 217-7, 92920-5, 96671-3 ####[facility] [id number] [place] [address] [place] Coagulation factor X activated act Coag Qn (PPP) 0.91 IU/mL High <0.10 [facility] Comment on above: Order Comment: Dora finch Type: BLOOD SPECIMENOrdering Facility: [facility] Address: [address] [place] [address] Result Comment: The recommended therapeutic range for treatment of venous and arterial thrombosis with intravenous unfractionated heparin is an anti Xa activity level of 0.3 to 0.7 IU/mL. In patients with concomitant therapy with thrombolytic agents and/or platelet glycoprotein IIb/IIIa antagonists, the recommended therapeutic range is an anti Xa activity level of 0.2 to 0.5 IU/mL. Performed By: #### 3 217-7 ####[facility] [id number] [place] [address] [place] Coagulation factor X activated act Coag Qn (PPP) >1.50 High <0.10 [facility] Comment on above: Order Comment: Dora finch Type: BLOOD SPECIMENOrdering Facility: [facility] Address: [address] [place] [address] Result Comment: Extr ruben high heparin anti-Xa [...] 0.5 IU/mL. Performed By: #### 3 217-7, 97354-8 ####[facility] [id number] [place] [id number] [place] HISTORY PHYSICALon HISTORY PHYSICAL Normal [facility] Magnesium SerPl-mCncon 12-05 Magnesium [Mass/Vol] 1.8 mg/dL Normal 1.7-2.3 [facility] Comment on above: Order Comment: Specsammie finch Type: BLOOD SPECIMENOrdering Facility: [facility] Address: [address] [place] [address] Performed By: #### 2 4323-8, 90480-8, 2777-1 ####[facility] LABIA [id number] [place] [id number] [place] NURSING PROGon 12-05-2024 NURSING PROG Normal [facility] NURSING PROG Normal [facility] NUTRITIONon 12-05-2024 NUTRITION Normal [facility] PT panel Coag (PPP)on 2024 INR Coag (PPP) [Relative time] 1.1 {INR} Normal 0.9-1.3 [facility] Comment on above: Order Comment: Dora finch Type: BLOOD SPECIMENOrdering Facility: [facility] Address: [address] [place] [address] Result Comment: Yamileth min K Antagonist (VKA) Therapeutic Range: INR 2 to 3 (Target INR of 2.5)Note: For patients treated with VKA drugs, such as warfarin, the [place] [employer] 2012 Guideline recommends [...] al. Chest 2012, 141:7S-47SMarkel RA, et al. [facility] 2017, 70: 252-289 Performed By: #### 3 217-7, 06026-7, 18273-0 ####[facility] [id number] [place] [id number] [place] PT Coag (PPP) [Time] 11.5 s Normal 9.7-13.0 [facility] Comment on above: Order Comment: Dora finch Type: BLOOD SPECIMENOrdering Facility: [facility] Address: [address] [place] [address] Performed By: #### 3 217-7, 68414-3, 71706-0 ####[facility] [id number] [place] [address] [place] INR Coag (PPP) [Relative time] 1.2 {INR} Normal 0.9-1.3 [facility] Comment on above: Order Comment: Dora finch Type: BLOOD SPECIMENOrdering Facility: [facility] Address: [address] [place] [address] Result Comment: Yamileth min K Antagonist (VKA) Therapeutic Range: INR 2 to 3 (Target INR of 2.5)Note: For patients treated with VKA drugs, such as warfarin, the [place] [employer] 2012 Guideline recommends [...] of 2.5 to 3.5 (target INR of 3).Foresttt GH, et al. Chest 2012, 141:7S-47SNishimura RA, et al. [facility] 2017, 70: 252-289 Performed By: #### 3 217-7, 40652-0 ####[facility] LABIA [id number] [place] [id number] [place] PT Coag (PPP) [Time] 12.4 s Normal 9.7-13.0 [facility] Comment on above: Order Comment: Speci men Type: BLOOD SPECIMENOrdering Facility: [facility] Address: [address] [place] [address] Performed By: #### 3 217-7, 08335-7 ####[facility] LABIA [id number] [place] [address] [place] Phosphate SerPl-mCncon 12-05 Phosphate [Mass/Vol] 3.9 mg/dL Normal 2.7-4.8 [facility] Comment on above: Order Comment: Speci men Type: BLOOD SPECIMENOrdering Facility: [facility] Address: [address] [place] [address] Performed By: #### 2 4323-8, 62268-8, 2777-1 ####[facility] [id number] [place] [address] [place] aPTT PPPon 12-05-2024 aPTT Coag (PPP) [Time] 26.2 s Normal 23.0-32.4 [facility] Comment on above: Order Comment: Speci men Type: BLOOD SPECIMENOrdering Facility: [facility] Address: [address] [place] [address] Performed By: #### 3 217-7, 17992-5, 74115-5 ####[facility] LABIA [id number] [address] [place] [address] [place] aPTT Coag (PPP) [Time] s High 23.0-32.4 [facility] Comment on above: Order Comment: Speci men Type: BLOOD SPECIMENOrdering Facility: [facility] Address: [address] [place] [address] Result Comment: Samp le checked for clot.Result rechecked. Performed By: #### 1 4979-9 ####[facility] LABCLIA [id number] [facility] 2001DESK [id number] [place], [place] [address] [place] Culture, Blood (WB)on 2024 CUB Blood cultures x2, f rom two different sites No growth in 5 days. Normal [facility] Comment on above: Performed By: #### L 100.0100, L500.4050, L503.6005, L300.3900, L300.4310, M200.1000 ####[facility] [address] [place], [address] Urine Cultureon 11-25-2024 URC Normal [facility] Comment on above: Performed By: #### M 100.678, L400.0001, M100.2200 ####[facility] [address] [place], [address] Basic Metabolic Profile (BMP )on 11-24-2024 BUN Normal 4-19 [facility] Comment on above: Result Comment: Canc elled via OM: Order cancelled - Patient discharged Performed By: #### L 500.2500, L100.0100 ####[facility] [address] [place], [address] BUN/CRE Normal 10-20 [facility] Comment on above: Result Comment: Canc elled via OM: Order cancelled - Patient discharged Performed By: #### L 500.2500, L100.0100 ####[facility] [address] [place], [address] Calcium Normal 7.6-11.0 [facility] Comment on above: Result Comment: Canc elled via OM: Order cancelled - Patient discharged Performed By: #### L 500.2500, L100.0100 ####[facility] [address] [place], [address] CL Normal 98-108 [facility] Comment on above: Result Comment: Canc elled via OM: Order cancelled - Patient discharged Performed By: #### L 500.2500, L100.0100 ####[facility] [address] [place], [address] CO2 Normal 21.0-32.0 [facility] Comment on above: Result Comment: Canc elled via OM: Order cancelled - Patient discharged Performed By: #### L 500.2500, L100.0100 ####[facility] [address] [place], [address] CREAT,SERUM Normal 0.70-1.20 [facility] Comment on above: Result Comment: Canc elled via OM: Order cancelled - Patient discharged Performed By: #### L 500.2500, L100.0100 ####[facility] [address] [place], [address] eGFR Normal >60 [facility] Comment on above: Result Comment: Canc elled via OM: Order cancelled - Patient discharged Performed By: #### L 500.2500, L100.0100 ####[facility] [address] [place], [address] GAP Normal 5-15 [facility] Comment on above: Result Comment: Canc elled via OM: Order cancelled - Patient discharged Performed By: #### L 500.2500, L100.0100 ####[facility] [address] [place], [address] GLU Normal 70-99 [facility] Comment on above: Result Comment: Canc elled via OM: Order cancelled - Patient discharged Performed By: #### L 500.2500, L100.0100 ####[facility] [address] [place], [address] Potassium Normal 3.3-5.1 [facility] Comment on above: Result Comment: Canc elled via OM: Order cancelled - Patient discharged Performed By: #### L 500.2500, L100.0100 ####[facility] [address] [place], [address] Basic Metabolic Profile (BMP) Normal 133-145 [facility] Comment on above: Result Comment: Canc elled via OM: Order cancelled - Patient discharged Performed By: #### L 500.2500, L100.0100 ####[facility] [address] [place], [address] CBC W/Diff, Automatedon 05-3 Absolute Neut Normal 2.0-7.7 [facility] Comment on above: Result Comment: Canc elled via OM: Order cancelled - Patient discharged Performed By: #### L 500.2500, L100.0100 ####[facility] [address] [place], [address] HCT Normal 37-47 [facility] Comment on above: Result Comment: Canc elled via OM: Order cancelled - Patient discharged Performed By: #### L 500.2500, L100.0100 ####[facility] [address] [place], [address] HGB Normal 12.0-15.0 [facility] Comment on above: Result Comment: Canc elled via OM: Order cancelled - Patient discharged Performed By: #### L 500.2500, L100.0100 ####[facility] [address] [place], [address] MCH Normal 27.0-32.0 [facility] Comment on above: Result Comment: Canc elled via OM: Order cancelled - Patient discharged Performed By: #### L 500.2500, L100.0100 ####[facility] [address] [place], [address] MCHC Normal 32-36 [facility] Comment on above: Result Comment: Canc elled via OM: Order cancelled - Patient discharged Performed By: #### L 500.2500, L100.0100 ####[facility] [address] [place], [address] MCV Normal 81-99 [facility] Comment on above: Result Comment: Canc elled via OM: Order cancelled - Patient discharged Performed By: #### L 500.2500, L100.0100 ####[facility] [address] [place], [address] NEUT% Normal 47-70 [facility] Comment on above: Result Comment: Canc elled via OM: Order cancelled - Patient discharged Performed By: #### L 500.2500, L100.0100 ####[facility] [address] [place], [address] PLT Normal 150-450 [facility] Comment on above: Result Comment: Canc elled via OM: Order cancelled - Patient discharged Performed By: #### L 500.2500, L100.0100 ####[facility] [address] [place], [address] RBC Normal 4.2-5.4 [facility] Comment on above: Result Comment: Canc elled via OM: Order cancelled - Patient discharged Performed By: #### L 500.2500, L100.0100 ####[facility] [address] [place], [address] RDW CV Normal 11.6-14.6 [facility] Comment on above: Result Comment: Canc elled via OM: Order cancelled - Patient discharged Performed By: #### L 500.2500, L100.0100 ####[facility] [address] [place], [address] RDW SD Normal 35.1-43.9 [facility] Comment on above: Result Comment: Canc elled via OM: Order cancelled - Patient discharged Performed By: #### L 500.2500, L100.0100 ####[facility] [address] [place], [address] WBC Normal 4.4-11.0 [facility] Comment on above: Result Comment: Canc elled via OM: Order cancelled - Patient discharged Performed By: #### L 500.2500, L100.0100 ####[facility] [address] [place], [address] Basic Metabolic Profile (BMP )on 11-23-2024 BUN/CRE 7.9 RATIO Low 10-20 [facility] Comment on above: Performed By: #### L 100.0100, L500.2500 ####[facility] [address] [place], [address] Calcium [Mass/Vol] 7.5 mg/dL Low 7.6-11.0 [facility] Comment on above: Performed By: #### L 100.0100, L500.2500 ####[facility] [address] [place], [address] Chloride [Moles/Vol] 111 mmol/L High 98-108 [facility] Comment on above: Performed By: #### L 100.0100, L500.2500 ####[facility] [address] [place], [address] CO2 [Moles/Vol] 18.5 mmol/L Low 21.0-32.0 [facility] Comment on above: Performed By: #### L 100.0100, L500.2500 ####[facility] [address] [place], [address] Creatinine [Mass/Vol] 0.91 mg/dL Normal 0.70-1.20 [facility] Comment on above: Performed By: #### L 100.0100, L500.2500 ####[facility] [address] [place], [address] ECRCL 90.47 ml/min Normal 50-250 [facility] Comment on above: Performed By: #### L 100.0100, L500.2500 ####[facility] [address] [place], [address] GAP 9 Normal 5-15 [facility] Comment on above: Performed By: #### L 100.0100, L500.2500 ####[facility] [address] [place], [address] GFR/1.73 sq M.predicted among non-blacks MDRD (S/P/Bld) [Vol rate/Area] 81 mL/min/{1.73_m2} Normal >60 [facility] Comment on above: Result Comment: mL/m in/1.73m2 CKD-EPI Creatinine Equation (2020) Performed By: #### L 100.0100, L500.2500 ####[facility] [address] [place], [address] Glucose [Mass/Vol] 111 mg/dL High 70-99 [facility] Comment on above: Performed By: #### L 100.0100, L500.2500 ####[facility] [address] [place], [address] Potassium [Moles/Vol] 3.2 mmol/L Low 3.3-5.1 [facility] Comment on above: Performed By: #### L 100.0100, L500.2500 ####[facility] [address] [place], [address] Sodium [Moles/Vol] 139 mmol/L Normal 133-145 [facility] Comment on above: Performed By: #### L 100.0100, L500.2500 ####[facility] [address] [place], [address] Urea nitrogen [Mass/Vol] 7 mg/dL Normal 4-19 [facility] Comment on above: Performed By: #### L 100.0100, L500.2500 ####[facility] [address] [place], [address] CBC W/Diff, Automatedon 10-27 OVALOCYTE 1+ Normal [facility] Comment on above: Performed By: #### L 100.0100, L500.2500 ####[facility] [address] [place], [address] PLT EST A Normal ADEQ [facility] Comment on above: Performed By: #### L 100.0100, L500.2500 ####[facility] [address] [place], [address] ATYPICAL LYMPH 1+ Normal [facility] Comment on above: Performed By: #### L 100.0100, L500.2500 ####[facility] [address] [place], [address] Basic Metabolic Profile (BMP )on 11-22-2024 BUN/CRE 14.4 RATIO Normal 10-20 [facility] Comment on above: Performed By: #### L 100.0100, L500.2500, L501.2300, L501.5200 ####[facility] [address] [place], [address] Calcium [Mass/Vol] 8.5 mg/dL Normal 7.6-11.0 [facility] Comment on above: Performed By: #### L 100.0100, L500.2500, L501.2300, L501.5200 ####[facility] [address] [place], [address] Chloride [Moles/Vol] 107 mmol/L Normal 98-108 [facility] Comment on above: Performed By: #### L 100.0100, L500.2500, L501.2300, L501.5200 ####[facility] [address] [place], [address] CO2 [Moles/Vol] 18.4 mmol/L Low 21.0-32.0 [facility] Comment on above: Performed By: #### L 100.0100, L500.2500, L501.2300, L501.5200 ####[facility] [address] [place], [address] Creatinine [Mass/Vol] 1.24 mg/dL High 0.70-1.20 [facility] Comment on above: Performed By: #### L 100.0100, L500.2500, L501.2300, L501.5200 ####[facility] [address] [place], [address] ECRCL 66.39 ml/min Normal 50-250 [facility] Comment on above: Performed By: #### L 100.0100, L500.2500, L501.2300, L501.5200 ####[facility] [address] [place], [address] GAP 11 Normal 5-15 [facility] Comment on above: Performed By: #### L 100.0100, L500.2500, L501.2300, L501.5200 ####[facility] [address] [place], [address] GFR/1.73 sq M.predicted among non-blacks MDRD (S/P/Bld) [Vol rate/Area] 56 mL/min/{1.73_m2} Low >60 [facility] Comment on above: Result Comment: mL/m in/1.73m2 CKD-EPI Creatinine Equation (2020) Performed By: #### L 100.0100, L500.2500, L501.2300, L501.5200 ####[facility] [address] [place], [address] Glucose [Mass/Vol] 101 mg/dL High 70-99 [facility] Comment on above: Performed By: #### L 100.0100, L500.2500, L501.2300, L501.5200 ####[facility] [address] [place], [address] Potassium [Moles/Vol] 3.4 mmol/L Normal 3.3-5.1 [facility] Comment on above: Performed By: #### L 100.0100, L500.2500, L501.2300, L501.5200 ####[facility] [address] [place], [address] Sodium [Moles/Vol] 137 mmol/L Normal 133-145 [facility] Comment on above: Performed By: #### L 100.0100, L500.2500, L501.2300, L501.5200 ####[facility] [address] [place], [address] Urea nitrogen [Mass/Vol] 18 mg/dL Normal 4-19 [facility] Comment on above: Performed By: #### L 100.0100, L500.2500, L501.2300, L501.5200 ####[facility] [address] [place], [address] CBC W/Diff, Automatedon 05-2 PATH REV Reviewed Normal [facility] Comment on above: Result Comment: SEE REPORT IN PATIENT'S EMR AMENDED REPORT 11/22/24 1421 PATH REV previously reported as: October bianca Performed By: #### L 300.3900, L300.4310, L503.6005, L500.4050, L501.4021, L503.7505, L100.0100, M200.1000 ####[facility] [address] [place], [address] Absolute Lymph 1.71 X10 3/uL Normal 0.83-4.51 [facility] Comment on above: Performed By: #### L 100.0100, L500.2500, L501.2300, L501.5200 ####[facility] [address] [place], [address] Absolute Neut 3.9 X10 3/uL Normal 2.0-7.7 [facility] Comment on above: Performed By: #### L 100.0100, L500.2500, L501.2300, L501.5200 ####[facility] [address] [place], [address] Basophils/100 WBC (Bld) 0.6 % Normal 0-1 [facility] Comment on above: Performed By: #### L 100.0100, L500.2500, L501.2300, L501.5200 ####[facility] [address] [place], [address] Eosinophils/100 WBC (Bld) 3.0 % Normal 0-5 [facility] Comment on above: Performed By: #### L 100.0100, L500.2500, L501.2300, L501.5200 ####[facility] [address] [place], [address] Erythrocyte distribution width (RBC) [Ratio] 16.2 % High 11.6-14.6 [facility] Comment on above: Performed By: #### L 100.0100, L500.2500, L501.2300, L501.5200 ####[facility] [address] [place], [address] Hematocrit (Bld) [Volume fraction] 27.7 % Low 37-47 [facility] Comment on above: Performed By: #### L 100.0100, L500.2500, L501.2300, L501.5200 ####[facility] [address] [place], [address] Hemoglobin (Bld) [Mass/Vol] 8.7 g/dL Low 12.0-15.0 [facility] Comment on above: Performed By: #### L 100.0100, L500.2500, L501.2300, L501.5200 ####[facility] [address] [place], [address] IG% 0.300 Normal 0.0-0.9 [facility] Comment on above: Result Comment: IG% - Immature Granulocytes (promyelocytes, myelocytes andmetamyelocytes) > 1% indicates that a LEFT SHIFT is Present. Performed By: #### L 100.0100, L500.2500, L501.2300, L501.5200 ####[facility] [address] [place], [address] Lymphocytes/100 WBC (Bld) 26.9 % Normal 19-41 [facility] Comment on above: Performed By: #### L 100.0100, L500.2500, L501.2300, L501.5200 ####[facility] [address] [place], [address] MCH (RBC) [Entitic mass] 25.1 pg Low 27.0-32.0 [facility] Comment on above: Performed By: #### L 100.0100, L500.2500, L501.2300, L501.5200 ####[facility] [address] [place], [address] MCHC (RBC) [Mass/Vol] 31.4 g/dL Low 32-36 [facility] Comment on above: Performed By: #### L 100.0100, L500.2500, L501.2300, L501.5200 ####[facility] [address] [place], [address] MCV (RBC) [Entitic vol] 79.8 fL Low 81-99 [facility] Comment on above: Performed By: #### L 100.0100, L500.2500, L501.2300, L501.5200 ####[facility] [address] [place], [address] Monocytes/100 WBC (Bld) 8.2 % Normal 0-10 [facility] Comment on above: Performed By: #### L 100.0100, L500.2500, L501.2300, L501.5200 ####[facility] [address] [place], [address] Neutrophils/100 WBC (Bld) 61.0 % Normal 47-70 [facility] Comment on above: Performed By: #### L 100.0100, L500.2500, L501.2300, L501.5200 ####[facility] [address] [place], [address] Nucleated RBC (Bld) [#/Vol] 0 10*3/uL Normal 0-5 [facility] Comment on above: Performed By: #### L 100.0100, L500.2500, L501.2300, L501.5200 ####[facility] [address] [place], [address] Platelet mean volume (Bld) [Entitic vol] 8.8 fL Normal 6.2-12.0 [facility] Comment on above: Performed By: #### L 100.0100, L500.2500, L501.2300, L501.5200 ####[facility] [address] [place], [address] Platelets (Bld) [#/Vol] 351 10*3/uL Normal 150-450 [facility] Comment on above: Performed By: #### L 100.0100, L500.2500, L501.2300, L501.5200 ####[facility] [address] [place], [address] RBC (Bld) [#/Vol] 3.47 10*6/uL Low 4.2-5.4 [facility] Comment on above: Performed By: #### L 100.0100, L500.2500, L501.2300, L501.5200 ####[facility] [address] [place], [address] RDW SD 46.9 fl High 35.1-43.9 [facility] Comment on above: Performed By: #### L 100.0100, L500.2500, L501.2300, L501.5200 ####[facility] [address] [place], [address] WBC (Bld) [#/Vol] 6.4 10*3/uL Normal 4.4-11.0 [facility] Comment on above: Performed By: #### L 100.0100, L500.2500, L501.2300, L501.5200 ####[facility] [address] [place], [address] Magnesiumon 11-22-2024 Magnesium [Mass/Vol] 1.3 mg/dL Low 1.5-2.2 [facility] Comment on above: Performed By: #### L 100.0100, L500.2500, L501.2300, L501.5200 ####[facility] [address] [place], [address] Phosphoruson 11-22-2024 Phosphate [Mass/Vol] 2.7 mg/dL Normal 2.7-4.5 [facility] Comment on above: Performed By: #### L 100.0100, L500.2500, L501.2300, L501.5200 ####[facility] [address] [place], [address] Basic Metabolic Profile (BMP )on 11-21-2024 BUN/CRE 11.9 RATIO Normal 10-20 [facility] Comment on above: Performed By: #### L 100.0100, L500.2500 ####[facility] [address] [place], [address] Calcium [Mass/Vol] 9.1 mg/dL Normal 7.6-11.0 [facility] Comment on above: Performed By: #### L 100.0100, L500.2500 ####[facility] [address] [place], [address] Chloride [Moles/Vol] 95 mmol/L Low 98-108 [facility] Comment on above: Performed By: #### L 100.0100, L500.2500 ####[facility] [address] [place], [address] CO2 [Moles/Vol] 15.6 mmol/L Low 21.0-32.0 [facility] Comment on above: Performed By: #### L 100.0100, L500.2500 ####[facility] [address] [place], [address] Creatinine [Mass/Vol] 2.69 mg/dL High 0.70-1.20 [facility] Comment on above: Performed By: #### L 100.0100, L500.2500 ####[facility] [address] [place], [address] ECRCL 30.60 ml/min Low 50-250 [facility] Comment on above: Performed By: #### L 100.0100, L500.2500 ####[facility] [address] [place], [address] GAP 17 High 5-15 [facility] Comment on above: Performed By: #### L 100.0100, L500.2500 ####[facility] [address] [place], [address] GFR/1.73 sq M.predicted among non-blacks MDRD (S/P/Bld) [Vol rate/Area] 22 mL/min/{1.73_m2} Low >60 [facility] Comment on above: Result Comment: mL/m in/1.73m2 CKD-EPI Creatinine Equation (2020) Performed By: #### L 100.0100, L500.2500 ####[facility] [address] [place], [address] Glucose [Mass/Vol] 127 mg/dL High 70-99 [facility] Comment on above: Performed By: #### L 100.0100, L500.2500 ####[facility] [address] [place], [address] Potassium [Moles/Vol] 3.6 mmol/L Normal 3.3-5.1 [facility] Comment on above: Performed By: #### L 100.0100, L500.2500 ####[facility] [address] [place], [address] Sodium [Moles/Vol] 128 mmol/L Low 133-145 [facility] Comment on above: Performed By: #### L 100.0100, L500.2500 ####[facility] [address] [place], [address] Urea nitrogen [Mass/Vol] 32 mg/dL High 4-19 [facility] Comment on above: Performed By: #### L 100.0100, L500.2500 ####[facility] [address] [place], [address] CBC W/Diff, Automatedon 05-2 Absolute Lymph 2.24 X10 3/uL Normal 0.83-4.51 [facility] Comment on above: Performed By: #### L 100.0100, L500.2500 ####[facility] [address] [place], [address] Absolute Neut 5.3 X10 3/uL Normal 2.0-7.7 [facility] Comment on above: Performed By: #### L 100.0100, L500.2500 ####[facility] [address] [place], [address] Basophils/100 WBC (Bld) 0.6 % Normal 0-1 [facility] Comment on above: Performed By: #### L 100.0100, L500.2500 ####[facility] [address] [place], [address] Eosinophils/100 WBC (Bld) 1.9 % Normal 0-5 [facility] Comment on above: Performed By: #### L 100.0100, L500.2500 ####[facility] [address] [place], [address] Erythrocyte distribution width (RBC) [Ratio] 16.3 % High 11.6-14.6 [facility] Comment on above: Performed By: #### L 100.0100, L500.2500 ####[facility] [address] [place], [address] Hematocrit (Bld) [Volume fraction] 30.2 % Low 37-47 [facility] Comment on above: Performed By: #### L 100.0100, L500.2500 ####[facility] [address] [place], [address] Hemoglobin (Bld) [Mass/Vol] 9.5 g/dL Low 12.0-15.0 [facility] Comment on above: Performed By: #### L 100.0100, L500.2500 ####[facility] [address] [place], [address] IG% 0.500 Normal 0.0-0.9 [facility] Comment on above: Result Comment: IG% - Immature Granulocytes (promyelocytes, myelocytes andmetamyelocytes) > 1% indicates that a LEFT SHIFT is Present. Performed By: #### L 100.0100, L500.2500 ####[facility] [address] [place], [address] Lymphocytes/100 WBC (Bld) 26.5 % Normal 19-41 [facility] Comment on above: Performed By: #### L 100.0100, L500.2500 ####[facility] [address] [place], [address] MCH (RBC) [Entitic mass] 24.7 pg Low 27.0-32.0 [facility] Comment on above: Performed By: #### L 100.0100, L500.2500 ####[facility] [address] [place], [address] MCHC (RBC) [Mass/Vol] 31.5 g/dL Low 32-36 [facility] Comment on above: Performed By: #### L 100.0100, L500.2500 ####[facility] [address] [place], [address] MCV (RBC) [Entitic vol] 78.6 fL Low 81-99 [facility] Comment on above: Performed By: #### L 100.0100, L500.2500 ####[facility] [address] [place], [address] Monocytes/100 WBC (Bld) 8.5 % Normal 0-10 [facility] Comment on above: Performed By: #### L 100.0100, L500.2500 ####[facility] [address] [place], [address] Neutrophils/100 WBC (Bld) 62.0 % Normal 47-70 [facility] Comment on above: Performed By: #### L 100.0100, L500.2500 ####[facility] [address] [place], [address] Nucleated RBC (Bld) [#/Vol] 0 10*3/uL Normal 0-5 [facility] Comment on above: Performed By: #### L 100.0100, L500.2500 ####[facility] [address] [place], [address] Platelet mean volume (Bld) [Entitic vol] 8.8 fL Normal 6.2-12.0 [facility] Comment on above: Performed By: #### L 100.0100, L500.2500 ####[facility] [address] [place], [address] Platelets (Bld) [#/Vol] 423 10*3/uL Normal 150-450 [facility] Comment on above: Performed By: #### L 100.0100, L500.2500 ####[facility] [address] [place], [address] RBC (Bld) [#/Vol] 3.84 10*6/uL Low 4.2-5.4 [facility] Comment on above: Performed By: #### L 100.0100, L500.2500 ####[facility] [address] [place], [address] RDW SD 46.2 fl High 35.1-43.9 [facility] Comment on above: Performed By: #### L 100.0100, L500.2500 ####[facility] [address] [place], [address] WBC (Bld) [#/Vol] 8.5 10*3/uL Normal 4.4-11.0 [facility] Comment on above: Performed By: #### L 100.0100, L500.2500 ####[facility] [address] [place], [address] H AND P Exam - Hospital[place] 11-21-2024 H&P Exam - Hospitalist Normal [facility] Urinalysis, Completeon 11-21 BACTERIA 2+ /hpf Normal None Seen [facility] Comment on above: Order Comment: [facility]LE CTOR TO SPECIFY Performed By: #### M 100.678, L400.0001, M100.2200 ####[facility] [address] [place], [address] EPI,SQUAMOUS 0-5 SEEN Normal 5-10 [facility] Comment on above: Order Comment: [facility] CTOR TO SPECIFY Performed By: #### M 100.678, L400.0001, M100.2200 ####[facility] [address] [place], [address] WBC 10-25 SEEN Normal 0-5 [facility] Comment on above: Order Comment: [facility] CTOR TO SPECIFY Performed By: #### M 100.678, L400.0001, M100.2200 ####[facility] [address] [place], [address] YEAST 1+ /hpf Normal None Seen [facility] Comment on above: Order Comment: [facility] CTOR TO SPECIFY Performed By: #### M 100.678, L400.0001, M100.2200 ####[facility] [address] [place], [address] BILIRUBIN URINE Negative Normal Negative [facility] Comment on above: Order Comment: [facility] CTOR TO SPECIFY Performed By: #### M 100.678, L400.0001, M100.2200 ####[facility] [address] [place], [address] Clarity (U) Clear Normal Clear [facility] Comment on above: Order Comment: [facility] CTOR TO SPECIFY Performed By: #### M 100.678, L400.0001, M100.2200 ####[facility] [address] [place], [address] Color (U) Yellow Normal Yellow [facility] Comment on above: Order Comment: [facility] CTOR TO SPECIFY Performed By: #### M 100.678, L400.0001, M100.2200 ####[facility] [address] [place], [address] GLUCOSE, UR Normal Normal Normal [facility] Comment on above: Order Comment: LEO CTOR TO SPECIFY Performed By: #### M 100.678, L400.0001, M100.2200 ####[facility] [address] [place], [address] KETONE UR Negative Normal Negative [facility] Comment on above: Order Comment: LEO CTOR TO SPECIFY Performed By: #### M 100.678, L400.0001, M100.0 ####[facility] [address] [place], [address] LEUK ESTERASE 25 /ul Abnormal Negative [facility] Comment on above: Order Comment: LEO CTOR TO SPECIFY Performed By: #### M 100.678, L400.0001, M100.0 ####[facility] [address] [place], [address] Nitrite Ql (U) Negative Normal Negative [facility] Comment on above: Order Comment: LEO CTOR TO SPECIFY Performed By: #### M 100.678, L400.0001, M100.0 ####[facility] [address] [place], [address] OCCULT BLOOD-UR Negative Normal Negative [facility] Comment on above: Order Comment: [facility] CTOR TO SPECIFY Performed By: #### M 100.678, L400.0001, M1.0 ####[facility] [address] [place], [address] pH UR 5.0 Normal 5.0 - 8.0 [facility] Comment on above: Order Comment: [facility] CTOR TO SPECIFY Performed By: #### M 100.678, L400.0001, M100.2200 ####[facility] [address] [place], [address] PROT DIPSTX 30 mg/dl Abnormal Negative [facility] Comment on above: Order Comment: [facility] CTOR TO SPECIFY Performed By: #### M 100.678, L400.0001, M100.2200 ####[facility] [address] [place], [address] SP.GR. DIPSTX 1.015 Normal 1.002-1.030 [facility] Comment on above: Order Comment: [facility] CTOR TO SPECIFY Performed By: #### M 100.678, L400.0001, M100.2200 ####[facility] [address] [place], [address] UROBILI Normal Normal Normal [facility] Comment on above: Order Comment: [facility] CTOR TO SPECIFY Performed By: #### M 100.678, L400.0001, M100.2200 ####[facility] [address] [place], [address] Mucus Ql (Urine sed) 0 SEEN Normal [facility] Comment on above: Order Comment: [facility] CTOR TO SPECIFY Performed By: #### M 100.678, L400.0001, M100.2200 ####[facility] [address] [place], [address] RBC 0 SEEN Normal 0-5 [facility] Comment on above: Order Comment: [facility] CTOR TO SPECIFY Performed By: #### M 100.678, L400.0001, M100.2200 ####[facility] [address] [place], [address] 12 Lead EKGon 11-20-2024 12 Lead EKG Normal [facility] CBC W/Diff, Automatedon 05-2 PLT EST MKD INC Normal ADEQ [facility] Comment on above: Performed By: #### L 100.0100, L500.4050, L503.6005, L300.3900, L300.4310, M200.1000 ####[facility] [address] [place], [address] PATH REV May foll Normal [facility] Comment on above: Performed By: #### L 100.0100, L500.4050, L503.6005, L300.3900, L300.4310, M200.1000 ####[facility] [address] [place], [address] CTA Chst, Abd, Pel W and/or WOon 11-20-2024 CTA Chst, Abd, Pel W and/or WO Normal [facility] Comprehensive Metabolic Prof ilon 11-20-2024 Albumin [Mass/Vol] 4.7 g/dL Normal 3.5-5.0 [facility] Comment on above: Performed By: #### L 100.0100, L500.4050, L503.6005, L300.3900, L300.4310, M200.1000 ####[facility] [address] [place], [address] Albumin/Globulin [Mass ratio] 0.9 {ratio} Normal 0.9-2.4 [facility] Comment on above: Performed By: #### L 100.0100, L500.4050, L503.6005, L300.3900, L300.4310, M200.1000 ####[facility] [address] [place], [address] ALK PHOS 337 U/L High 35-104 [facility] Comment on above: Performed By: #### L 100.0100, L500.4050, L503.6005, L300.3900, L300.4310, M200.1000 ####[facility] [address] [place], [address] ALT [Catalytic activity/Vol] 127 U/L High <=34 [facility] Comment on above: Performed By: #### L 100.0100, L500.4050, L503.6005, L300.3900, L300.4310, M200.1000 ####[facility] [address] [place], [address] AST [Catalytic activity/Vol] 106 U/L High <=31 [facility] Comment on above: Performed By: #### L 100.0100, L500.4050, L503.6005, L300.3900, L300.4310, M200.1000 ####[facility] [address] [place], [address] Bilirubin [Mass/Vol] 0.82 mg/dL Normal 0.00-1.30 [facility] Comment on above: Performed By: #### L 100.0100, L500.4050, L503.6005, L300.3900, L300.4310, M200.1000 ####[facility] [address] [place], [address] BUN/CRE 8.4 RATIO Low 10-20 [facility] Comment on above: Performed By: #### L 100.0100, L500.4050, L503.6005, L300.3900, L300.4310, M200.1000 ####[facility] [address] [place], [address] Calcium [Mass/Vol] 10.8 mg/dL Normal 7.6-11.0 [facility] Comment on above: Performed By: #### L 100.0100, L500.4050, L503.6005, L300.3900, L300.4310, M200.1000 ####[facility] [address] [place], [address] Chloride [Moles/Vol] 88 mmol/L Low 98-108 [facility] Comment on above: Performed By: #### L 100.0100, L500.4050, L503.6005, L300.3900, L300.4310, M200.1000 ####[facility] [address] [place], [place], [address] CO2 [Moles/Vol] 15.2 mmol/L Low 21.0-32.0 [facility] Comment on above: Performed By: #### L 100.0100, L500.4050, L503.6005, L300.3900, L300.4310, M200.1000 ####[facility] [address] [place], [address] Creatinine [Mass/Vol] 4.32 mg/dL High 0.70-1.20 [facility] Comment on above: Performed By: #### L 100.0100, L500.4050, L503.6005, L300.3900, L300.4310, M200.1000 ####[facility] [address] [place], [place], [phone]) ECRCL 19.01 ml/min Low 50-250 [facility] Comment on above: Performed By: #### L 100.0100, L500.4050, L503.6005, L300.3900, L300.4310, M200.1000 ####[facility] [address] [place], [address] GAP 25 High 5-15 [facility] Comment on above: Performed By: #### L 100.0100, L500.4050, L503.6005, L300.3900, L300.4310, M200.1000 ####[facility] [address] [place], [place], [phone](090) GFR/1.73 sq M.predicted among non-blacks MDRD (S/P/Bld) [Vol rate/Area] 13 mL/min/{1.73_m2} Low >60 [facility] Comment on above: Result Comment: mL/m in/1.73m2 CKD-EPI Creatinine Equation (2020) Performed By: #### L 100.0100, L500.4050, L503.6005, L300.3900, L300.4310, M200.1000 ####[facility] [address] [place], [address] Globulin (S) [Mass/Vol] 5.5 g/dL High 2.2-4.2 [facility] Comment on above: Performed By: #### L 100.0100, L500.4050, L503.6005, L300.3900, L300.4310, M200.1000 ####[facility] [address] [place], [address] Glucose [Mass/Vol] 249 mg/dL High 70-99 [facility] Comment on above: Performed By: #### L 100.0100, L500.4050, L503.6005, L300.3900, L300.4310, M200.1000 ####[facility] [address] [place], [address] Potassium [Moles/Vol] 4.4 mmol/L Normal 3.3-5.1 [facility] Comment on above: Performed By: #### L 100.0100, L500.4050, L503.6005, L300.3900, L300.4310, M200.1000 ####[facility] [address] [place], [address] Sodium [Moles/Vol] 129 mmol/L Low 133-145 [facility] Comment on above: Performed By: #### L 100.0100, L500.4050, L503.6005, L300.3900, L300.4310, M200.1000 ####[facility] [address] [place], [address] T PROT 10.1 g/dL High 5.9-8.4 [facility] Comment on above: Performed By: #### L 100.0100, L500.4050, L503.6005, L300.3900, L300.4310, M200.1000 ####[facility] [address] [place], [address] Urea nitrogen [Mass/Vol] 36 mg/dL High 4-19 [facility] Comment on above: Performed By: #### L 100.0100, L500.4050, L503.6005, L300.3900, L300.4310, M200.1000 ####[facility] [address] [place], [address] Emergency Department Summary on 11-20-2024 Emergency Department Summary Normal [facility] Foot min 3 Viewson 5 Foot min 3 Views Normal [facility] L499.0042on 11-20-2024 Trop T High Sen 32 ng/L High <=14 [facility] Comment on above: Performed By: #### L 499.0042 ####[facility] [address] [place], [address] L499.0043on 11-20-2024 Trop T High Sen 32 ng/L High <=14 [facility] Comment on above: Performed By: #### L 499.0043 ####[facility] [address] [place], [address] L501.4021on 11-20-2024 Trop T High Sen 38 ng/L High <=14 [facility] Comment on above: Performed By: #### L 501.4021 ####[facility] [address] [place], [address] Lactic Acidon 11-20-2024 Lactate [Moles/Vol] 1.7 mmol/L Normal 0.0-2.0 [facility] Comment on above: Performed By: #### L 503.6005 ####[facility] [address] [place], [address] Lactate [Moles/Vol] 6.1 mmol/L Invalid Interpretation Code 0.0-2.0 [facility] Comment on above: Order Comment: Y Result Comment: Crit ical Result(s) Called at: 1557 by: CLAUDIA GUTIERREZ TO HANNACM??Results read back by same. Performed By: #### L 100.0100, L500.4050, L503.6005, L300.3900, L300.4310, M200.1000 ####[facility] [address] [place], [address] M100.678on 11-20-2024 M100.678 Pending SARS-CoV-2 (COVID 19) Negative INFLUENZA A Negative INFLUENZA B Negative RSV PCR Negative Normal [facility] Comment on above: Performed By: #### M 100.678, L400.0001, M100.2200 ####[facility] [address] [place], [address] Partial Thromboplast Timeon 11-20-2024 aPTT Coag (Bld) [Time] 30.1 s Normal 24.1-36.2 [facility] Comment on above: Performed By: #### L 100.0100, L500.4050, L503.6005, L300.3900, L300.4310, M200.1000 ####[facility] [address] [place], [address] Prothrombin Time w/INRon INR Coag (PPP) [Relative time] 1.1 {INR} Normal [facility] Comment on above: Performed By: #### L 100.0100, L500.4050, L503.6005, L300.3900, L300.4310, M200.1000 ####[facility] [address] [place], [address] PT Coag (PPP) [Time] 14.8 s Normal 11.7-14.9 [facility] Comment on above: Performed By: #### L 100.0100, L500.4050, L503.6005, L300.3900, L300.4310, M200.1000 ####[facility] [address] [place], [address] Culture, Anaerobic Any Sourc patricia 11-19-2024 CUAN UNK UNK COLLECTED IN OR No anaerobic bacteria isolated. [facility] Comment on above: Performed By: #### M 100.3000, M100.4001, M100.2000 ####[facility] [address] [place], [address] Culture, Blood (WB)on 2024 CUB Blood cultures x2, f rom two different sites No growth in 5 days. [facility] Comment on above: Performed By: #### M 200.1000 ####[facility] [address] [place], [address] CUB Blood cultures x2, f rom two different sites No growth in 5 days. [facility] Comment on above: Performed By: #### L 300.3900, L300.4310, L503.6005, L500.4050, L501.4021, L503.7505, L100.0100, M200.1000 ####[facility] [address] [place], [address] Wound Cultureon 11-18-2024 [facility] Comment on above: Performed By: #### M 100.3000, M100.4001, M100.2000 ####[facility] [address] [place], [address] Discharge Instructionon 10-26 Discharge Instruction Normal [facility] Basic Metabolic Profile (BMP )on 11-15-2024 BUN/CRE 13.5 RATIO Normal 10-20 [facility] Comment on above: Performed By: #### L 100.0100, L500.2500, L300.3900, L300.4310 ####[facility] [address] [place], [address] Calcium [Mass/Vol] 8.3 mg/dL Normal 7.6-11.0 [facility] Comment on above: Performed By: #### L 100.0100, L500.2500, L300.3900, L300.4310 ####[facility] [address] [place], [address] Chloride [Moles/Vol] 105 mmol/L Normal 98-108 [facility] Comment on above: Performed By: #### L 100.0100, L500.2500, L300.3900, L300.4310 ####[facility] [address] [place], [address] CO2 [Moles/Vol] 19.0 mmol/L Low 21.0-32.0 [facility] Comment on above: Performed By: #### L 100.0100, L500.2500, L300.3900, L300.4310 ####[facility] [address] [place], [address] Creatinine [Mass/Vol] 1.38 mg/dL High 0.70-1.20 [facility] Comment on above: Performed By: #### L 100.0100, L500.2500, L300.3900, L300.4310 ####[facility] [address] [place], [address] ECRCL 60.44 ml/min Normal 50-250 [facility] Comment on above: Performed By: #### L 100.0100, L500.2500, L300.3900, L300.4310 ####[facility] [address] [place], [address] GAP 11 Normal 5-15 [facility] Comment on above: Performed By: #### L 100.0100, L500.2500, L300.3900, L300.4310 ####[facility] [address] [place], [address] GFR/1.73 sq M.predicted among non-blacks MDRD (S/P/Bld) [Vol rate/Area] 49 mL/min/{1.73_m2} Low >60 [facility] Comment on above: Result Comment: mL/m in/1.73m2 CKD-EPI Creatinine Equation (2020) Performed By: #### L 100.0100, L500.2500, L300.3900, L300.4310 ####[facility] [address] [place], [address] Glucose [Mass/Vol] 90 mg/dL Normal 70-99 [facility] Comment on above: Performed By: #### L 100.0100, L500.2500, L300.3900, L300.4310 ####[facility] [address] [place], [address] Potassium [Moles/Vol] 3.2 mmol/L Low 3.3-5.1 [facility] Comment on above: Performed By: #### L 100.0100, L500.2500, L300.3900, L300.4310 ####[facility] [address] [place], [address] Sodium [Moles/Vol] 135 mmol/L Normal 133-145 [facility] Comment on above: Performed By: #### L 100.0100, L500.2500, L300.3900, L300.4310 ####[facility] [address] [place], [address] Urea nitrogen [Mass/Vol] 19 mg/dL Normal 4-19 [facility] Comment on above: Performed By: #### L 100.0100, L500.2500, L300.3900, L300.4310 ####[facility] [address] [place], [address] CBC W/Diff, Automatedon 05-2 -2024 Absolute Lymph 2.01 X10 3/uL Normal 0.83-4.51 [facility] Comment on above: Performed By: #### L 100.0100, L500.2500, L300.3900, L300.4310 ####[facility] [address] [place], [address] Absolute Neut 3.1 X10 3/uL Normal 2.0-7.7 [facility] Comment on above: Performed By: #### L 100.0100, L500.2500, L300.3900, L300.4310 ####[facility] [address] [place], [address] Basophils/100 WBC (Bld) 1.0 % Normal 0-1 [facility] Comment on above: Performed By: #### L 100.0100, L500.2500, L300.3900, L300.4310 ####[facility] [address] [place], [address] Eosinophils/100 WBC (Bld) 1.9 % Normal 0-5 [facility] Comment on above: Performed By: #### L 100.0100, L500.2500, L300.3900, L300.4310 ####[facility] [address] [place], [address] Erythrocyte distribution width (RBC) [Ratio] 16.0 % High 11.6-14.6 [facility] Comment on above: Performed By: #### L 100.0100, L500.2500, L300.3900, L300.4310 ####[facility] [address] [place], [address] Hematocrit (Bld) [Volume fraction] 26.8 % Low 37-47 [facility] Comment on above: Performed By: #### L 100.0100, L500.2500, L300.3900, L300.4310 ####[facility] [address] [place], [address] Hemoglobin (Bld) [Mass/Vol] 8.6 g/dL Low 12.0-15.0 [facility] Comment on above: Performed By: #### L 100.0100, L500.2500, L300.3900, L300.4310 ####[facility] [address] [place], [address] IG% 0.300 Normal 0.0-0.9 [facility] Comment on above: Result Comment: IG% - Immature Granulocytes (promyelocytes, myelocytes andmetamyelocytes) > 1% indicates that a LEFT SHIFT is Present. Performed By: #### L 100.0100, L500.2500, L300.3900, L300.4310 ####[facility] [address] [place], [address] Lymphocytes/100 WBC (Bld) 34.9 % Normal 19-41 [facility] Comment on above: Performed By: #### L 100.0100, L500.2500, L300.3900, L300.4310 ####[facility] [address] [place], [address] MCH (RBC) [Entitic mass] 25.2 pg Low 27.0-32.0 [facility] Comment on above: Performed By: #### L 100.0100, L500.2500, L300.3900, L300.4310 ####[facility] [address] [place], [address] MCHC (RBC) [Mass/Vol] 32.1 g/dL Normal 32-36 [facility] Comment on above: Performed By: #### L 100.0100, L500.2500, L300.3900, L300.4310 ####[facility] [address] [place], [address] MCV (RBC) [Entitic vol] 78.6 fL Low 81-99 [facility] Comment on above: Performed By: #### L 100.0100, L500.2500, L300.3900, L300.4310 ####[facility] [address] [place], [address] Monocytes/100 WBC (Bld) 8.0 % Normal 0-10 [facility] Comment on above: Performed By: #### L 100.0100, L500.2500, L300.3900, L300.4310 ####[facility] [address] [place], [address] Neutrophils/100 WBC (Bld) 53.9 % Normal 47-70 [facility] Comment on above: Performed By: #### L 100.0100, L500.2500, L300.3900, L300.4310 ####[facility] [address] [place], [address] Nucleated RBC (Bld) [#/Vol] 0 10*3/uL Normal 0-5 [facility] Comment on above: Performed By: #### L 100.0100, L500.2500, L300.3900, L300.4310 ####[facility] [address] [place], [address] Platelet mean volume (Bld) [Entitic vol] 9.1 fL Normal 6.2-12.0 [facility] Comment on above: Performed By: #### L 100.0100, L500.2500, L300.3900, L300.4310 ####[facility] [address] [place], [address] Platelets (Bld) [#/Vol] 394 10*3/uL Normal 150-450 [facility] Comment on above: Performed By: #### L 100.0100, L500.2500, L300.3900, L300.4310 ####[facility] [address] [place], [address] RBC (Bld) [#/Vol] 3.41 10*6/uL Low 4.2-5.4 [facility] Comment on above: Performed By: #### L 100.0100, L500.2500, L300.3900, L300.4310 ####[facility] [address] [place], [address] RDW SD 45.2 fl High 35.1-43.9 [facility] Comment on above: Performed By: #### L 100.0100, L500.2500, L300.3900, L300.4310 ####[facility] [address] [place], [address] WBC (Bld) [#/Vol] 5.8 10*3/uL Normal 4.4-11.0 [facility] Comment on above: Performed By: #### L 100.0100, L500.2500, L300.3900, L300.4310 ####[facility] [address] [place], [address] Decalcification bone/plaqueo n 11-15-2024 Decalcification bone/plaque Normal [facility] Comment on above: Performed By: #### P DEC ####[facility] [address] [place], [address] Gram Stainon 11-15-2024 GS UNK UNK COLLECTED IN OR Gram Stain Rare Gram positive cocci Rare Gram positive rods Normal [facility] Comment on above: Performed By: #### M 100.3000, M100.4001, M100.2000 ####[facility] [address] [place], [address] MR/POSTOP.ANEon 11-15-2024 MR/POSTOP.ANE Normal [facility] MR/[id number] 11-15-2024 MR/POSTOPAN2 Normal [facility] [facility] Operative Reporton Operative Report Normal [facility] Partial Thromboplast Timeon 11-15-2024 aPTT Coag (Bld) [Time] 59.2 s High 24.1-36.2 [facility] Comment on above: Performed By: #### L 100.0100, L500.2500, L300.3900, L300.4310 ####[facility] [address] [place], [address] aPTT Coag (Bld) [Time] 82.6 s High 24.1-36.2 [facility] Comment on above: Performed By: #### L 300.4310 ####[facility] [address] [place], [address] ,Urineon 11-15-2024 Beta HCG ( test) Ql (U) Negative Normal [facility] Comment on above: Result Comment: Very dilute urine specimens, as indicated by a low specificgravity, may not contain textile machinery sales representative levels of hCG.If is still suspected, a first morning urinespecimen should be collected 48 hours later and tested. Performed By: #### L 400.7600 ####[facility] [address] [place], [address] Prothrombin Time w/INRon INR Coag (PPP) [Relative time] 1.1 {INR} Normal [facility] Comment on above: Performed By: #### L 100.0100, L500.2500, L300.3900, L300.4310 ####[facility] [address] [place], [address] PT Coag (PPP) [Time] 14.0 s Normal 11.7-14.9 [facility] Comment on above: Performed By: #### L 100.0100, L500.2500, L300.3900, L300.4310 ####[facility] [address] [place], [address] CBC W/Diff, Automatedon 05- Absolute Lymph 1.95 X10 3/uL Normal 0.83-4.51 [facility] Comment on above: Performed By: #### L 100.0100, L500.4050 ####[facility] [address] [place], [address] Absolute Neut 3.7 X10 3/uL Normal 2.0-7.7 [facility] Comment on above: Performed By: #### L 100.0100, L500.4050 ####[facility] [address] [place], [address] Basophils/100 WBC (Bld) 0.8 % Normal 0-1 [facility] Comment on above: Performed By: #### L 100.0100, L500.4050 ####[facility] [address] [place], [address] Eosinophils/100 WBC (Bld) 2.1 % Normal 0-5 [facility] Comment on above: Performed By: #### L 100.0100, L500.4050 ####[facility] [address] [place], [address] Erythrocyte distribution width (RBC) [Ratio] 15.8 % High 11.6-14.6 [facility] Comment on above: Performed By: #### L 100.0100, L500.4050 ####[facility] [address] [place], [address] Hematocrit (Bld) [Volume fraction] 28.9 % Low 37-47 [facility] Comment on above: Performed By: #### L 100.0100, L500.4050 ####[facility] [address] [place], [address] Hemoglobin (Bld) [Mass/Vol] 9.3 g/dL Low 12.0-15.0 [facility] Comment on above: Performed By: #### L 100.0100, L500.4050 ####[facility] [address] [place], [address] IG% 0.300 Normal 0.0-0.9 [facility] Comment on above: Result Comment: IG% - Immature Granulocytes (promyelocytes, myelocytes andmetamyelocytes) > 1% indicates that a LEFT SHIFT is Present. Performed By: #### L 100.0100, L500.4050 ####[facility] [address] [place], [address] Lymphocytes/100 WBC (Bld) 30.8 % Normal 19-41 [facility] Comment on above: Performed By: #### L 100.0100, L500.4050 ####[facility] [address] [place], [address] MCH (RBC) [Entitic mass] 24.7 pg Low 27.0-32.0 [facility] Comment on above: Performed By: #### L 100.0100, L500.4050 ####[facility] [address] [place], [address] MCHC (RBC) [Mass/Vol] 32.2 g/dL Normal 32-36 [facility] Comment on above: Performed By: #### L 100.0100, L500.4050 ####[facility] [address] [place], [address] MCV (RBC) [Entitic vol] 76.9 fL Low 81-99 [facility] Comment on above: Performed By: #### L 100.0100, L500.4050 ####[facility] [address] [place], [address] Monocytes/100 WBC (Bld) 7.4 % Normal 0-10 [facility] Comment on above: Performed By: #### L 100.0100, L500.4050 ####[facility] [address] [place], [address] Neutrophils/100 WBC (Bld) 58.6 % Normal 47-70 [facility] Comment on above: Performed By: #### L 100.0100, L500.4050 ####[facility] [address] [place], [address] Nucleated RBC (Bld) [#/Vol] 0 10*3/uL Normal 0-5 [facility] Comment on above: Performed By: #### L 100.0100, L500.4050 ####[facility] [address] [place], [address] Platelet mean volume (Bld) [Entitic vol] 8.9 fL Normal 6.2-12.0 [facility] Comment on above: Performed By: #### L 100.0100, L500.4050 ####[facility] [address] [place], [address] Platelets (Bld) [#/Vol] 393 10*3/uL Normal 150-450 [facility] Comment on above: Performed By: #### L 100.0100, L500.4050 ####[facility] [address] [place], [address] RBC (Bld) [#/Vol] 3.76 10*6/uL Low 4.2-5.4 [facility] Comment on above: Performed By: #### L 100.0100, L500.4050 ####[facility] [address] [place], [address] RDW SD 43.0 fl Normal 35.1-43.9 [facility] Comment on above: Performed By: #### L 100.0100, L500.4050 ####[facility] [address] [place], [address] WBC (Bld) [#/Vol] 6.3 10*3/uL Normal 4.4-11.0 [facility] Comment on above: Performed By: #### L 100.0100, L500.4050 ####[facility] [address] [place], [address] Comprehensive Metabolic Prof ilon 11-14-2024 Albumin [Mass/Vol] 3.4 g/dL Low 3.5-5.0 [facility] Comment on above: Performed By: #### L 100.0100, L500.4050 ####[facility] [address] [place], [address] Albumin/Globulin [Mass ratio] 1.0 {ratio} Normal 0.9-2.4 [facility] Comment on above: Performed By: #### L 100.0100, L500.4050 ####[facility] [address] [place], [address] ALK PHOS 273 U/L High 35-104 [facility] Comment on above: Performed By: #### L 100.0100, L500.4050 ####[facility] [address] [place], [address] ALT [Catalytic activity/Vol] 205 U/L High <=34 [facility] Comment on above: Performed By: #### L 100.0100, L500.4050 ####[facility] [address] [place], [address] AST [Catalytic activity/Vol] 102 U/L High <=31 [facility] Comment on above: Performed By: #### L 100.0100, L500.4050 ####[facility] [address] [place], [address] Bilirubin [Mass/Vol] 1.20 mg/dL Normal 0.00-1.30 [facility] Comment on above: Performed By: #### L 100.0100, L500.4050 ####[facility] [address] [place], [address] BUN/CRE 18.6 RATIO Normal 10-20 [facility] Comment on above: Performed By: #### L 100.0100, L500.4050 ####[facility] [address] [place], [address] Calcium [Mass/Vol] 8.8 mg/dL Normal 7.6-11.0 [facility] Comment on above: Performed By: #### L 100.0100, L500.4050 ####[facility] [address] [place], [address] Chloride [Moles/Vol] 100 mmol/L Normal 98-108 [facility] Comment on above: Performed By: #### L 100.0100, L500.4050 ####[facility] [address] [place], [address] CO2 [Moles/Vol] 17.5 mmol/L Low 21.0-32.0 [facility] Comment on above: Performed By: #### L 100.0100, L500.4050 ####[facility] [address] [place], [address] Creatinine [Mass/Vol] 2.17 mg/dL High 0.70-1.20 [facility] Comment on above: Performed By: #### L 100.0100, L500.4050 ####[facility] [address] [place], [address] ECRCL 38.54 ml/min Low 50-250 [facility] Comment on above: Performed By: #### L 100.0100, L500.4050 ####[facility] [address] [place], [address] GAP 14 Normal 5-15 [facility] Comment on above: Performed By: #### L 100.0100, L500.4050 ####[facility] [address] [place], [address] GFR/1.73 sq M.predicted among non-blacks MDRD (S/P/Bld) [Vol rate/Area] 29 mL/min/{1.73_m2} Low >60 [facility] Comment on above: Result Comment: mL/m in/1.73m2 CKD-EPI Creatinine Equation (2020) Performed By: #### L 100.0100, L500.4050 ####[facility] [address] [place], [address] Globulin (S) [Mass/Vol] 3.6 g/dL Normal 2.2-4.2 [facility] Comment on above: Performed By: #### L 100.0100, L500.4050 ####[facility] [address] [place], [address] Glucose [Mass/Vol] 146 mg/dL High 70-99 [facility] Comment on above: Performed By: #### L 100.0100, L500.4050 ####[facility] [address] [place], [address] Potassium [Moles/Vol] 3.4 mmol/L Normal 3.3-5.1 [facility] Comment on above: Performed By: #### L 100.0100, L500.4050 ####[facility] [address] [place], [address] Sodium [Moles/Vol] 131 mmol/L Low 133-145 [facility] Comment on above: Performed By: #### L 100.0100, L500.4050 ####[facility] [address] [place], [address] T PROT 7.0 g/dL Normal 5.9-8.4 [facility] Comment on above: Performed By: #### L 100.0100, L500.4050 ####[facility] [address] [place], [address] Urea nitrogen [Mass/Vol] 40 mg/dL High 4-19 [facility] Comment on above: Performed By: #### L 100.0100, L500.4050 ####[facility] [address] [place], [address] Consultation - Surgicalon Consultation - Surgical Normal [facility] Lower Ext Art Exam w/o Exerc marly 11-14-2024 Lower Ext Art Exam w/o Exercis Normal [facility] Partial Thromboplast Timeon 11-14-2024 aPTT Coag (Bld) [Time] 30.6 s Normal 24.1-36.2 [facility] Comment on above: Performed By: #### L 300.4310 ####[facility] [address] [place], [address] aPTT Coag (Bld) [Time] 55.3 s High 24.1-36.2 [facility] Comment on above: Performed By: #### L 300.4310 ####[facility] [address] [place], [address] aPTT Coag (Bld) [Time] 56.1 s High 24.1-36.2 [facility] Comment on above: Performed By: #### L 300.4310 ####[facility] [address] [place], [address] Urine Cultureon 11-14-2024 URC Culture exhibits no growth. Normal [facility] Comment on above: Performed By: #### L 400.0001, M100.678, M100.2200 ####[facility] [address] [place], [address] 12 Lead EKGon 11-13-2024 12 Lead EKG Normal [facility] CRPon 11-13-2024 C-REACTIVE PROT 10.90 mg/L High 0.0-3.0 [facility] Comment on above: Performed By: #### L 501.6710, L101.9900 ####[facility] [address] [place], [address] Chest PA and Lateralon 11-13 Chest PA and Lateral Normal [facility] Comprehensive Metabolic Prof ilon 11-13-2024 Albumin [Mass/Vol] 4.8 g/dL Normal 3.5-5.0 [facility] Comment on above: Performed By: #### L 300.3900, L300.4310, L503.6005, L500.4050, L501.4021, L503.7505, L100.0100, M200.1000 ####[facility] [address] [place], [address] Albumin/Globulin [Mass ratio] 0.9 {ratio} Normal 0.9-2.4 [facility] Comment on above: Performed By: #### L 300.3900, L300.4310, L503.6005, L500.4050, L501.4021, L503.7505, L100.0100, M200.1000 ####[facility] [address] [place], [address] ALK PHOS 459 U/L High 35-104 [facility] Comment on above: Performed By: #### L 300.3900, L300.4310, L503.6005, L500.4050, L501.4021, L503.7505, L100.0100, M200.1000 ####[facility] [address] [place], [address] ALT [Catalytic activity/Vol] 336 U/L High <=34 [facility] Comment on above: Performed By: #### L 300.3900, L300.4310, L503.6005, L500.4050, L501.4021, L503.7505, L100.0100, M200.1000 ####[facility] [address] [place], [address] AST [Catalytic activity/Vol] 197 U/L High <=31 [facility] Comment on above: Performed By: #### L 300.3900, L300.4310, L503.6005, L500.4050, L501.4021, L503.7505, L100.0100, M200.1000 ####[facility] [address] [place], [address] Bilirubin [Mass/Vol] 1.93 mg/dL High 0.00-1.30 [facility] Comment on above: Performed By: #### L 300.3900, L300.4310, L503.6005, L500.4050, L501.4021, L503.7505, L100.0100, M200.1000 ####[facility] [address] [place], [address] BUN/CRE 17.9 RATIO Normal 10-20 [facility] Comment on above: Performed By: #### L 300.3900, L300.4310, L503.6005, L500.4050, L501.4021, L503.7505, L100.0100, M200.1000 ####[facility] [address] [place], [address] Calcium [Mass/Vol] 11.0 mg/dL Normal 7.6-11.0 [facility] Comment on above: Performed By: #### L 300.3900, L300.4310, L503.6005, L500.4050, L501.4021, L503.7505, L100.0100, M200.1000 ####[facility] [address] [place], [address] Chloride [Moles/Vol] 86 mmol/L Low 98-108 [facility] Comment on above: Performed By: #### L 300.3900, L300.4310, L503.6005, L500.4050, L501.4021, L503.7505, L100.0100, M200.1000 ####[facility] [address] [place], [address] CO2 [Moles/Vol] 17.0 mmol/L Low 21.0-32.0 [facility] Comment on above: Performed By: #### L 300.3900, L300.4310, L503.6005, L500.4050, L501.4021, L503.7505, L100.0100, M200.1000 ####[facility] [address] [place], [address] Creatinine [Mass/Vol] 3.70 mg/dL High 0.70-1.20 [facility] Comment on above: Performed By: #### L 300.3900, L300.4310, L503.6005, L500.4050, L501.4021, L503.7505, L100.0100, M200.1000 ####[facility] [address] [place], [address] ECRCL 22.19 ml/min Low 50-250 [facility] Comment on above: Performed By: #### L 300.3900, L300.4310, L503.6005, L500.4050, L501.4021, L503.7505, L100.0100, M200.1000 ####[facility] [address] [place], [address] GAP 23 High 5-15 [facility] Comment on above: Performed By: #### L 300.3900, L300.4310, L503.6005, L500.4050, L501.4021, L503.7505, L100.0100, M200.1000 ####[facility] [address] [place], [address] GFR/1.73 sq M.predicted among non-blacks MDRD (S/P/Bld) [Vol rate/Area] 15 mL/min/{1.73_m2} Low >60 [facility] Comment on above: Result Comment: mL/m in/1.73m2 CKD-EPI Creatinine Equation (2020) Performed By: #### L 300.3900, L300.4310, L503.6005, L500.4050, L501.4021, L503.7505, L100.0100, M200.1000 ####[facility] [address] [place], [address] Globulin (S) [Mass/Vol] 5.5 g/dL High 2.2-4.2 [facility] Comment on above: Performed By: #### L 300.3900, L300.4310, L503.6005, L500.4050, L501.4021, L503.7505, L100.0100, M200.1000 ####[facility] [address] [place], [address] Glucose [Mass/Vol] 168 mg/dL High 70-99 [facility] Comment on above: Performed By: #### L 300.3900, L300.4310, L503.6005, L500.4050, L501.4021, L503.7505, L100.0100, M200.1000 ####[facility] [address] [place], [address] Potassium [Moles/Vol] 4.1 mmol/L Normal 3.3-5.1 [facility] Comment on above: Performed By: #### L 300.3900, L300.4310, L503.6005, L500.4050, L501.4021, L503.7505, L100.0100, M200.1000 ####[facility] [address] [place], [address] Sodium [Moles/Vol] 126 mmol/L Low 133-145 [facility] Comment on above: Performed By: #### L 300.3900, L300.4310, L503.6005, L500.4050, L501.4021, L503.7505, L100.0100, M200.1000 ####[facility] [address] [place], [address] T PROT 10.3 g/dL High 5.9-8.4 [facility] Comment on above: Performed By: #### L 300.3900, L300.4310, L503.6005, L500.4050, L501.4021, L503.7505, L100.0100, M200.1000 ####[facility] [address] [place], [address] Urea nitrogen [Mass/Vol] 66 mg/dL High 4-19 [facility] Comment on above: Performed By: #### L 300.3900, L300.4310, L503.6005, L500.4050, L501.4021, L503.7505, L100.0100, M200.1000 ####[facility] [address] [place], [address] Emergency Department Summary on 11-13-2024 Emergency Department Summary Normal [facility] Erythrocyte Sed Rateon 11-13 SED RATE 87 mm/hr High 0-30 [facility] Comment on above: Performed By: #### L 501.6710, L101.9900 ####[facility] [address] [place], [address] Foot min 3 Viewson 5 Foot min 3 Views Normal [facility] H AND P Exam - Hospitaliston 11-13-2024 H&P Exam - Hospitalist Normal [facility] L501.4021on 11-13-2024 Trop T High Sen 20 ng/L High <=14 [facility] Comment on above: Performed By: #### L 501.4021 ####[facility] [address] [place], [address] Trop T High Sen 30 ng/L High <=14 [facility] Comment on above: Performed By: #### L 300.3900, L300.4310, L503.6005, L500.4050, L501.4021, L503.7505, L100.0100, M200.1000 ####[facility] [address] [place], [address] L503.7505on 11-13-2024 Natriuretic peptide B (Bld) [Mass/Vol] 46 pg/mL Normal <=450 [facility] Comment on above: Result Comment: Hear t Failure Unlikely: < 300 pg/mLHeart Failure Likely< 50 Years: > 450 pg/mL50-75 Years: > 900 pg/mL>75 Years: > 1800 pg/mL Performed By: #### L 300.3900, L300.4310, L503.6005, L500.4050, L501.4021, L503.7505, L100.0100, M200.1000 ####[facility] [address] [place], [address] Lactic Acidon 11-13-2024 Lactate [Moles/Vol] 1.6 mmol/L Normal 0.0-2.0 [facility] Comment on above: Performed By: #### L 503.6005 ####[facility] [address] [place], [address] Lactate [Moles/Vol] 5.8 mmol/L Invalid Interpretation Code 0.0-2.0 [facility] Comment on above: Order Comment: Y Result Comment: Crit ical Result(s) Called at 1343: by: ROSSANA CARLSON. ??Results read back by same. Performed By: #### L 300.3900, L300.4310, L503.6005, L500.4050, L501.4021, L503.7505, L100.0100, M200.1000 ####[facility] [address] [place], [address] M100.678on 11-13-2024 M100.678 Pending SARS-CoV-2 (COVID 19) Negative INFLUENZA A Negative INFLUENZA B Negative RSV PCR Negative Normal [facility] Comment on above: Performed By: #### L 400.0001, M100.678, M100.2200 ####[facility] [address] [place], [address] Partial Thromboplast Timeon 11-13-2024 aPTT Coag (Bld) [Time] 73.1 s High 24.1-36.2 [facility] Comment on above: Performed By: #### L 300.4310 ####[facility] [facility] [address] [place], [address] aPTT Coag (Bld) [Time] 29.6 s Normal 24.1-36.2 [facility] Comment on above: Performed By: #### L 300.3900, L300.4310, L503.6005, L500.4050, L501.4021, L503.7505, L100.0100, M200.1000 ####[facility] [address] [place], [address] Prothrombin Time w/INRon INR Coag (PPP) [Relative time] 1.1 {INR} Normal [facility] Comment on above: Performed By: #### L 300.3900, L300.4310, L503.6005, L500.4050, L501.4021, L503.7505, L100.0100, M200.1000 ####[facility] [address] [place], [address] PT Coag (PPP) [Time] 13.9 s Normal 11.7-14.9 [facility] Comment on above: Performed By: #### L 300.3900, L300.4310, L503.6005, L500.4050, L501.4021, L503.7505, L100.0100, M200.1000 ####[facility] [address] [place], [address] Urinalysis, Completeon 11-13 CAST,HYALINE 10-25 SEEN Normal 0-5 [facility] Comment on above: Order Comment: [facility] CTOR TO SPECIFY Performed By: #### L 400.0001, M100.678, M100.2200 ####[facility] [address] [place], [address] EPI,SQUAMOUS 0-5 SEEN Normal 5-10 [facility] Comment on above: Order Comment: [facility] CTOR TO SPECIFY Performed By: #### L 400.0001, M100.678, M100.2200 ####[facility] [address] [place], [address] WBC 0-5 SEEN Normal 0-5 [facility] Comment on above: Order Comment: [facility] CTOR TO SPECIFY Performed By: #### L 400.0001, M100.678, M100.2200 ####[facility] [address] [place], [address] BACTERIA 0 SEEN Normal None Seen [facility] Comment on above: Order Comment: [facility] CTOR TO SPECIFY Performed By: #### L 400.0001, M100.678, M100.2200 ####[facility] [address] [place], [address] Mucus Ql (Urine sed) 0 SEEN Normal [facility] Comment on above: Order Comment: [facility] CTOR TO SPECIFY Performed By: #### L 400.0001, M100.678, M100.2200 ####[facility] [address] [place], [address] RBC 0 SEEN Normal 0-5 [facility] Comment on above: Order Comment: [facility] CTOR TO SPECIFY Performed By: #### L 400.0001, M100.678, M100.2200 ####[facility] [address] [place], [address] Basic Metabolic Profile (BMP )on 11-05-2024 BUN/CRE 4.7 RATIO Low 10-20 [facility] Comment on above: Performed By: #### L 500.2500 ####[facility] [address] [place], [address] Calcium [Mass/Vol] 8.6 mg/dL Normal 7.6-11.0 [facility] Comment on above: Performed By: #### L 500.2500 ####[facility] [address] [place], [address] Chloride [Moles/Vol] 110 mmol/L High 98-108 [facility] Comment on above: Performed By: #### L 500.2500 ####[facility] [address] [place], [address] CO2 [Moles/Vol] 19.7 mmol/L Low 21.0-32.0 [facility] Comment on above: Performed By: #### L 500.2500 ####[facility] [address] [place], [address] Creatinine [Mass/Vol] 0.94 mg/dL Normal 0.70-1.20 [facility] Comment on above: Performed By: #### L 500.2500 ####[facility] [address] [place], [address] ECRCL 89.97 ml/min Normal 50-250 [facility] Comment on above: Performed By: #### L 500.2500 ####[facility] [address] [place], [address] GAP 10 Normal 5-15 [facility] Comment on above: Performed By: #### L 500.2500 ####[facility] [address] [place], [address] GFR/1.73 sq M.predicted among non-blacks MDRD (S/P/Bld) [Vol rate/Area] 78 mL/min/{1.73_m2} Normal >60 [facility] Comment on above: Result Comment: mL/m in/1.73m2 CKD-EPI Creatinine Equation (2020) Performed By: #### L 500.2500 ####[facility] [address] [place], [address] Glucose [Mass/Vol] 85 mg/dL Normal 70-99 [facility] Comment on above: Performed By: #### L 500.2500 ####[facility] [address] [place], [address] Potassium [Moles/Vol] 3.7 mmol/L Normal 3.3-5.1 [facility] Comment on above: Performed By: #### L 500.2500 ####[facility] [address] [place], [address] Sodium [Moles/Vol] 139 mmol/L Normal 133-145 [facility] Comment on above: Performed By: #### L 500.2500 ####[facility] [address] [place], [address] Urea nitrogen [Mass/Vol] 4 mg/dL Normal 4-19 [facility] Comment on above: Performed By: #### L 500.2500 ####[facility] [address] [place], [address] Basic Metabolic Profile (BMP )on 11-04-2024 BUN/CRE 3.6 RATIO Low 10-20 [facility] Comment on above: Performed By: #### L 500.2500 ####[facility] [address] [place], [address] Calcium [Mass/Vol] 7.8 mg/dL Normal 7.6-11.0 [facility] Comment on above: Performed By: #### L 500.2500 ####[facility] [address] [place], [address] Chloride [Moles/Vol] 113 mmol/L High 98-108 [facility] Comment on above: Performed By: #### L 500.2500 ####[facility] [address] [place], [address] CO2 [Moles/Vol] 17.3 mmol/L Low 21.0-32.0 [facility] Comment on above: Performed By: #### L 500.2500 ####[facility] [address] [place], [address] Creatinine [Mass/Vol] 0.93 mg/dL Normal 0.70-1.20 [facility] Comment on above: Performed By: #### L 500.2500 ####[facility] [address] [place], [address] ECRCL 90.94 ml/min Normal 50-250 [facility] Comment on above: Performed By: #### L 500.2500 ####[facility] [address] [place], [address] GAP 9 Normal 5-15 [facility] Comment on above: Performed By: #### L 500.2500 ####[facility] [address] [place], [address] GFR/1.73 sq M.predicted among non-blacks MDRD (S/P/Bld) [Vol rate/Area] 79 mL/min/{1.73_m2} Normal >60 [facility] Comment on above: Result Comment: mL/m in/1.73m2 CKD-EPI Creatinine Equation (2020) Performed By: #### L 500.2500 ####[facility] [address] [place], [address] Glucose [Mass/Vol] 96 mg/dL Normal 70-99 [facility] Comment on above: Performed By: #### L 500.2500 ####[facility] [address] [place], [address] Potassium [Moles/Vol] 3.9 mmol/L Normal 3.3-5.1 [facility] Comment on above: Performed By: #### L 500.2500 ####[facility] [address] [place], [address] Sodium [Moles/Vol] 140 mmol/L Normal 133-145 [facility] Comment on above: Performed By: #### L 500.2500 ####[facility] [address] [place], [address] Urea nitrogen [Mass/Vol] 3 mg/dL Low - [facility] Comment on above: Performed By: #### L 500.2500 ####[facility] [address] [place], [address] Basic Metabolic Profile (BMP )on 11-03-2024 BUN/CRE 4.1 RATIO Low 10- [facility] Comment on above: Performed By: #### L 500.2500, L501.5200 ####[facility] [address] [place], [address] Calcium [Mass/Vol] 8.3 mg/dL Normal 7.6-11.0 [facility] Comment on above: Performed By: #### L 500.2500, L501.5200 ####[facility] [address] [place], [address] Chloride [Moles/Vol] 110 mmol/L High 98-108 [facility] Comment on above: Performed By: #### L 500.2500, L501.5200 ####[facility] [address] [place], [address] CO2 [Moles/Vol] 20.6 mmol/L Low 21.0-32.0 [facility] Comment on above: Performed By: #### L 500.2500, L501.5200 ####[facility] [address] [place], [address] Creatinine [Mass/Vol] 0.99 mg/dL Normal 0.70-1.20 [facility] Comment on above: Performed By: #### L 500.2500, L501.5200 ####[facility] [address] [place], [address] ECRCL 85.43 ml/min Normal 50-250 [facility] Comment on above: Performed By: #### L 500.2500, L501.5200 ####[facility] [address] [place], [address] GAP 9 Normal 5-15 [facility] Comment on above: Performed By: #### L 500.2500, L501.5200 ####[facility] [address] [place], [address] GFR/1.73 sq M.predicted among non-blacks MDRD (S/P/Bld) [Vol rate/Area] 74 mL/min/{1.73_m2} Normal >60 [facility] Comment on above: Result Comment: mL/m in/1.73m2 CKD-EPI Creatinine Equation (2020) Performed By: #### L 500.2500, L501.5200 ####[facility] [address] [place], [address] Glucose [Mass/Vol] 100 mg/dL High 70-99 [facility] Comment on above: Performed By: #### L 500.2500, L501.5200 ####[facility] [address] [place], [address] Potassium [Moles/Vol] 3.8 mmol/L Normal 3.3-5.1 [facility] Comment on above: Performed By: #### L 500.2500, L501.5200 ####[facility] [address] [place], [address] Sodium [Moles/Vol] 140 mmol/L Normal 133-145 [facility] Comment on above: Performed By: #### L 500.2500, L501.5200 ####[facility] [address] [place], [address] Urea nitrogen [Mass/Vol] 4 mg/dL Normal 4-19 [facility] Comment on above: Performed By: #### L 500.2500, L501.5200 ####[facility] [address] [place], [address] Magnesiumon 11-03-2024 Magnesium [Mass/Vol] 1.3 mg/dL Low 1.5-2.2 [facility] Comment on above: Performed By: #### L 500.2500, L501.5200 ####[facility] [address] [place], [address] Basic Metabolic Profile (BMP )on 11-02-2024 BUN/CRE 7.2 RATIO Low 10-20 [facility] Comment on above: Performed By: #### L 500.2500 ####[facility] [address] [place], [address] Calcium [Mass/Vol] 8.2 mg/dL Normal 7.6-11.0 [facility] Comment on above: Performed By: #### L 500.2500 ####[facility] [address] [place], [address] Chloride [Moles/Vol] 106 mmol/L Normal 98-108 [facility] Comment on above: Performed By: #### L 500.2500 ####[facility] [address] [place], [address] CO2 [Moles/Vol] 22.3 mmol/L Normal 21.0-32.0 [facility] Comment on above: Performed By: #### L 500.2500 ####[facility] [address] [place], [address] Creatinine [Mass/Vol] 0.96 mg/dL Normal 0.70-1.20 [facility] Comment on above: Performed By: #### L 500.2500 ####[facility] [address] [place], [address] ECRCL 88.09 ml/min Normal 50-250 [facility] Comment on above: Performed By: #### L 500.2500 ####[facility] [address] [place], [address] GAP 11 Normal 5-15 [facility] Comment on above: Performed By: #### L 500.2500 ####[facility] [address] [place], [address] GFR/1.73 sq M.predicted among non-blacks MDRD (S/P/Bld) [Vol rate/Area] 76 mL/min/{1.73_m2} Normal >60 [facility] Comment on above: Result Comment: mL/m in/1.73m2 CKD-EPI Creatinine Equation (2020) Performed By: #### L 500.2500 ####[facility] [address] [place], [address] Glucose [Mass/Vol] 79 mg/dL Normal 70-99 [facility] Comment on above: Performed By: #### L 500.2500 ####[facility] [address] [place], [address] Potassium [Moles/Vol] 3.0 mmol/L Low 3.3-5.1 [facility] Comment on above: Performed By: #### L 500.2500 ####[facility] [address] [place], [address] Sodium [Moles/Vol] 139 mmol/L Normal 133-145 [facility] Comment on above: Performed By: #### L 500.2500 ####[facility] [address] [place], [address] Urea nitrogen [Mass/Vol] 7 mg/dL Normal 4-19 [facility] Comment on above: Performed By: #### L 500.2500 ####[facility] [address] [place], [address] Basic Metabolic Profile (BMP )on 11-01-2024 BUN/CRE 8.6 RATIO Low 10-20 [facility] Comment on above: Performed By: #### L 500.2500 ####[facility] [address] [place], [address] Calcium [Mass/Vol] 8.5 mg/dL Normal 7.6-11.0 [facility] Comment on above: Performed By: #### L 500.2500 ####[facility] [address] [place], [address] Chloride [Moles/Vol] 102 mmol/L Normal 98-108 [facility] Comment on above: Performed By: #### L 500.2500 ####[facility] [address] [place], [address] CO2 [Moles/Vol] 24.0 mmol/L Normal 21.0-32.0 [facility] Comment on above: Performed By: #### L 500.2500 ####[facility] [address] [place], [address] Creatinine [Mass/Vol] 1.01 mg/dL Normal 0.70-1.20 [facility] Comment on above: Performed By: #### L 500.2500 ####[facility] [address] [place], [address] ECRCL 83.73 ml/min Normal 50-250 [facility] Comment on above: Performed By: #### L 500.2500 ####[facility] [address] [place], [address] GAP 10 Normal 5-15 [facility] Comment on above: Performed By: #### L 500.2500 ####[facility] [address] [place], [address] GFR/1.73 sq M.predicted among non-blacks MDRD (S/P/Bld) [Vol rate/Area] 72 mL/min/{1.73_m2} Normal >60 [facility] Comment on above: Result Comment: mL/m in/1.73m2 CKD-EPI Creatinine Equation (2020) Performed By: #### L 500.2500 ####[facility] [address] [place], [address] Glucose [Mass/Vol] 90 mg/dL Normal 70-99 [facility] Comment on above: Performed By: #### L 500.2500 ####[facility] [address] [place], [address] Potassium [Moles/Vol] 3.2 mmol/L Low 3.3-5.1 [facility] Comment on above: Performed By: #### L 500.2500 ####[facility] [address] [place], [address] Sodium [Moles/Vol] 136 mmol/L Normal 133-145 [facility] Comment on above: Performed By: #### L 500.2500 ####[facility] [address] [place], [address] Urea nitrogen [Mass/Vol] 9 mg/dL Normal 4-19 [facility] Comment on above: Performed By: #### L 500.2500 ####[facility] [address] [place], [address] Basic Metabolic Profile (BMP )on 10-31-2024 BUN/CRE 10.7 RATIO Normal 10-20 [facility] Comment on above: Performed By: #### L 100.0500, L500.2500 ####[facility] [address] [place], [address] Calcium [Mass/Vol] 8.6 mg/dL Normal 7.6-11.0 [facility] Comment on above: Performed By: #### L 100.0500, L500.2500 ####[facility] [address] [place], [address] Chloride [Moles/Vol] 100 mmol/L Normal 98-108 [facility] Comment on above: Performed By: #### L 100.0500, L500.2500 ####[facility] [address] [place], [address] CO2 [Moles/Vol] 21.6 mmol/L Normal 21.0-32.0 [facility] Comment on above: Performed By: #### L 100.0500, L500.2500 ####[facility] [address] [place], [address] Creatinine [Mass/Vol] 1.04 mg/dL Normal 0.70-1.20 [facility] Comment on above: Performed By: #### L 100.0500, L500.2500 ####[facility] [address] [place], [address] ECRCL 81.32 ml/min Normal 50-250 [facility] Comment on above: Performed By: #### L 100.0500, L500.2500 ####[facility] [address] [place], [address] GAP 13 Normal 5-15 [facility] Comment on above: Performed By: #### L 100.0500, L500.2500 ####[facility] [address] [place], [address] GFR/1.73 sq M.predicted among non-blacks MDRD (S/P/Bld) [Vol rate/Area] 69 mL/min/{1.73_m2} Normal >60 [facility] Comment on above: Result Comment: mL/m in/1.73m2 CKD-EPI Creatinine Equation (2020) Performed By: #### L 100.0500, L500.2500 ####[facility] [address] [place], [address] Glucose [Mass/Vol] 91 mg/dL Normal 70-99 [facility] Comment on above: Performed By: #### L 100.0500, L500.2500 ####[facility] [address] [place], [address] Potassium [Moles/Vol] 3.2 mmol/L Low 3.3-5.1 [facility] Comment on above: Performed By: #### L 100.0500, L500.2500 ####[facility] [address] [place], [address] Sodium [Moles/Vol] 135 mmol/L Normal 133-145 [facility] Comment on above: Performed By: #### L 100.0500, L500.2500 ####[facility] [address] [place], [address] Urea nitrogen [Mass/Vol] 11 mg/dL Normal 4-19 [facility] Comment on above: Performed By: #### L 100.0500, L500.2500 ####[facility] [address] [place], [address] CBC-Complete Blood Cnt No Di ffon 10-31-2024 Erythrocyte distribution width (RBC) [Ratio] 15.1 % High 11.6-14.6 [facility] Comment on above: Performed By: #### L 100.0500, L500.2500 ####[facility] [address] [place], [address] Hematocrit (Bld) [Volume fraction] 28.9 % Low 37-47 [facility] Comment on above: Performed By: #### L 100.0500, L500.2500 ####[facility] [address] [place], [address] Hemoglobin (Bld) [Mass/Vol] 8.9 g/dL Low 12.0-15.0 [facility] Comment on above: Performed By: #### L 100.0500, L500.2500 ####[facility] [address] [place], [address] MCH (RBC) [Entitic mass] 24.4 pg Low 27.0-32.0 [facility] Comment on above: Performed By: #### L 100.0500, L500.2500 ####[facility] [address] [place], [address] MCHC (RBC) [Mass/Vol] 30.8 g/dL Low 32-36 [facility] Comment on above: Performed By: #### L 100.0500, L500.2500 ####[facility] [address] [place], [address] MCV (RBC) [Entitic vol] 79.2 fL Low 81-99 [facility] Comment on above: Performed By: #### L 100.0500, L500.2500 ####[facility] [address] [place], [address] Platelet mean volume (Bld) [Entitic vol] 9.0 fL Normal 6.2-12.0 [facility] Comment on above: Performed By: #### L 100.0500, L500.2500 ####[facility] [address] [place], [address] Platelets (Bld) [#/Vol] 357 10*3/uL Normal 150-450 [facility] Comment on above: Performed By: #### L 100.0500, L500.2500 ####[facility] [address] [place], [address] RBC (Bld) [#/Vol] 3.65 10*6/uL Low 4.2-5.4 [facility] Comment on above: Performed By: #### L 100.0500, L500.2500 ####[facility] [address] [place], [address] RDW SD 43.3 fl Normal 35.1-43.9 [facility] Comment on above: Performed By: #### L 100.0500, L500.2500 ####[facility] [address] [place], [address] WBC (Bld) [#/Vol] 4.9 10*3/uL Normal 4.4-11.0 [facility] Comment on above: Performed By: #### L 100.0500, L500.2500 ####[facility] [address] [place], [address] Basic Metabolic Profile (BMP )on 10-30-2024 BUN/CRE 14.8 RATIO Normal 10-20 [facility] Comment on above: Performed By: #### L 100.0100, L500.2500 ####[facility] [address] [place], [address] Calcium [Mass/Vol] 8.6 mg/dL Normal 7.6-11.0 [facility] Comment on above: Performed By: #### L 100.0100, L500.2500 ####[facility] [address] [place], [address] Chloride [Moles/Vol] 100 mmol/L Normal 98-108 [facility] Comment on above: Performed By: #### L 100.0100, L500.2500 ####[facility] [address] [place], [address] CO2 [Moles/Vol] 22.0 mmol/L Normal 21.0-32.0 [facility] Comment on above: Performed By: #### L 100.0100, L500.2500 ####[facility] [address] [place], [address] Creatinine [Mass/Vol] 1.26 mg/dL High 0.70-1.20 [facility] Comment on above: Performed By: #### L 100.0100, L500.2500 ####[facility] [address] [place], [address] ECRCL 67.12 ml/min Normal 50-250 [facility] Comment on above: Performed By: #### L 100.0100, L500.2500 ####[facility] [address] [place], [address] GAP 14 Normal 5-15 [facility] Comment on above: Performed By: #### L 100.0100, L500.2500 ####[facility] [address] [place], [address] GFR/1.73 sq M.predicted among non-blacks MDRD (S/P/Bld) [Vol rate/Area] 55 mL/min/{1.73_m2} Low >60 [facility] Comment on above: Result Comment: mL/m in/1.73m2 CKD-EPI Creatinine Equation (2020) Performed By: #### L 100.0100, L500.2500 ####[facility] [address] [place], [address] Glucose [Mass/Vol] 96 mg/dL Normal 70-99 [facility] Comment on above: Performed By: #### L 100.0100, L500.2500 ####[facility] [address] [place], [address] Potassium [Moles/Vol] 3.6 mmol/L Normal 3.3-5.1 [facility] Comment on above: Performed By: #### L 100.0100, L500.2500 ####[facility] [address] [place], [address] Sodium [Moles/Vol] 135 mmol/L Normal 133-145 [facility] Comment on above: Performed By: #### L 100.0100, L500.2500 ####[facility] [address] [place], [address] Urea nitrogen [Mass/Vol] 19 mg/dL Normal 4-19 [facility] Comment on above: Performed By: #### L 100.0100, L500.2500 ####[facility] [address] [place], [address] CBC W/Diff, Automatedon 05-0 6-2024 Absolute Lymph 2.28 X10 3/uL Normal 0.83-4.51 [facility] Comment on above: Performed By: #### L 100.0100, L500.2500 ####[facility] [address] [place], [address] Absolute Neut 2.8 X10 3/uL Normal 2.0-7.7 [facility] Comment on above: Performed By: #### L 100.0100, L500.2500 ####[facility] [address] [place], [address] Basophils/100 WBC (Bld) 0.9 % Normal 0-1 [facility] Comment on above: Performed By: #### L 100.0100, L500.2500 ####[facility] [address] [place], [address] Eosinophils/100 WBC (Bld) 2.6 % Normal 0-5 [facility] Comment on above: Performed By: #### L 100.0100, L500.2500 ####[facility] [address] [place], [address] Erythrocyte distribution width (RBC) [Ratio] 15.1 % High 11.6-14.6 [facility] Comment on above: Performed By: #### L 100.0100, L500.2500 ####[facility] [address] [place], [address] Hematocrit (Bld) [Volume fraction] 28.3 % Low 37-47 [facility] Comment on above: Performed By: #### L 100.0100, L500.2500 ####[facility] [address] [place], [address] Hemoglobin (Bld) [Mass/Vol] 9.1 g/dL Low 12.0-15.0 [facility] Comment on above: Performed By: #### L 100.0100, L500.2500 ####[facility] [address] [place], [address] IG% 0.200 Normal 0.0-0.9 [facility] Comment on above: Result Comment: IG% - Immature Granulocytes (promyelocytes, myelocytes andmetamyelocytes) > 1% indicates that a LEFT SHIFT is Present. Performed By: #### L 100.0100, L500.2500 ####[facility] [address] [place], [address] Lymphocytes/100 WBC (Bld) 39.1 % Normal 19-41 [facility] Comment on above: Performed By: #### L 100.0100, L500.2500 ####[facility] [address] [place], [address] MCH (RBC) [Entitic mass] 24.7 pg Low 27.0-32.0 [facility] Comment on above: Performed By: #### L 100.0100, L500.2500 ####[facility] [address] [place], [address] MCHC (RBC) [Mass/Vol] 32.2 g/dL Normal 32-36 [facility] Comment on above: Performed By: #### L 100.0100, L500.2500 ####[facility] [address] [place], [address] MCV (RBC) [Entitic vol] 76.9 fL Low 81-99 [facility] Comment on above: Performed By: #### L 100.0100, L500.2500 ####[facility] [address] [place], [address] Monocytes/100 WBC (Bld) 8.9 % Normal 0-10 [facility] Comment on above: Performed By: #### L 100.0100, L500.2500 ####[facility] [address] [place], [address] Neutrophils/100 WBC (Bld) 48.3 % Normal 47-70 [facility] Comment on above: Performed By: #### L 100.0100, L500.2500 ####[facility] [address] [place], [address] Nucleated RBC (Bld) [#/Vol] 0 10*3/uL Normal 0-5 [facility] Comment on above: Performed By: #### L 100.0100, L500.2500 ####[facility] [address] [place], [address] Platelet mean volume (Bld) [Entitic vol] 9.0 fL Normal 6.2-12.0 [facility] Comment on above: Performed By: #### L 100.0100, L500.2500 ####[facility] [address] [place], [address] Platelets (Bld) [#/Vol] 403 10*3/uL Normal 150-450 [facility] Comment on above: Performed By: #### L 100.0100, L500.2500 ####[facility] [address] [place], [address] RBC (Bld) [#/Vol] 3.68 10*6/uL Low 4.2-5.4 [facility] Comment on above: Performed By: #### L 100.0100, L500.2500 ####[facility] [address] [place], [address] RDW SD 41.8 fl Normal 35.1-43.9 [facility] Comment on above: Performed By: #### L 100.0100, L500.2500 ####[facility] [address] [place], [address] WBC (Bld) [#/Vol] 5.8 10*3/uL Normal 4.4-11.0 [facility] Comment on above: Performed By: #### L 100.0100, L500.2500 ####[facility] [address] [place], [address] Basic Metabolic Profile (BMP )on 10-29-2024 BUN/CRE 15.4 RATIO Normal 10-20 [facility] Comment on above: Performed By: #### L 501.5200, L100.0100, L500.2500, L501.2300 ####[facility] [address] [place], [address] Calcium [Mass/Vol] 8.5 mg/dL Normal 7.6-11.0 [facility] Comment on above: Performed By: #### L 501.5200, L100.0100, L500.2500, L501.2300 ####[facility] [address] [place], [address] Chloride [Moles/Vol] 95 mmol/L Low 98-108 [facility] Comment on above: Performed By: #### L 501.5200, L100.0100, L500.2500, L501.2300 ####[facility] [address] [place], [address] CO2 [Moles/Vol] 23.1 mmol/L Normal 21.0-32.0 [facility] Comment on above: Performed By: #### L 501.5200, L100.0100, L500.2500, L501.2300 ####[facility] [address] [place], [address] Creatinine [Mass/Vol] 1.93 mg/dL High 0.70-1.20 [facility] Comment on above: Performed By: #### L 501.5200, L100.0100, L500.2500, L501.2300 ####[facility] [address] [place], [address] ECRCL 43.82 ml/min Low 50-250 [facility] Comment on above: Performed By: #### L 501.5200, L100.0100, L500.2500, L501.2300 ####[facility] [address] [place], [address] GAP 12 Normal 5-15 [facility] Comment on above: Performed By: #### L 501.5200, L100.0100, L500.2500, L501.2300 ####[facility] [address] [place], [address] GFR/1.73 sq M.predicted among non-blacks MDRD (S/P/Bld) [Vol rate/Area] 33 mL/min/{1.73_m2} Low >60 [facility] Comment on above: Result Comment: mL/m in/1.73m2 CKD-EPI Creatinine Equation (2020) Performed By: #### L 501.5200, L100.0100, L500.2500, L501.2300 ####[facility] [address] [place], [address] Glucose [Mass/Vol] 100 mg/dL High 70-99 [facility] Comment on above: Performed By: #### L 501.5200, L100.0100, L500.2500, L501.2300 ####[facility] [address] [place], [address] Potassium [Moles/Vol] 3.5 mmol/L Normal 3.3-5.1 [facility] Comment on above: Performed By: #### L 501.5200, L100.0100, L500.2500, L501.2300 ####[facility] [address] [place], [address] Sodium [Moles/Vol] 131 mmol/L Low 133-145 [facility] Comment on above: Performed By: #### L 501.5200, L100.0100, L500.2500, L501.2300 ####[facility] [address] [place], [address] Urea nitrogen [Mass/Vol] 30 mg/dL High 4-19 [facility] Comment on above: Performed By: #### L 501.5200, L100.0100, L500.2500, L501.2300 ####[facility] [address] [place], [address] CBC W/Diff, Automatedon 05-0 5-2024 Absolute Lymph 1.54 X10 3/uL Normal 0.83-4.51 [facility] Comment on above: Performed By: #### L 501.5200, L100.0100, L500.2500, L501.2300 ####[facility] [address] [place], [address] Absolute Neut 3.2 X10 3/uL Normal 2.0-7.7 [facility] Comment on above: Performed By: #### L 501.5200, L100.0100, L500.2500, L501.2300 ####[facility] [address] [place], [address] Basophils/100 WBC (Bld) 0.6 % Normal 0-1 [facility] Comment on above: Performed By: #### L 501.5200, L100.0100, L500.2500, L501.2300 ####[facility] [address] [place], [address] Eosinophils/100 WBC (Bld) 1.5 % Normal 0-5 [facility] Comment on above: Performed By: #### L 501.5200, L100.0100, L500.2500, L501.2300 ####[facility] [address] [place], [address] Erythrocyte distribution width (RBC) [Ratio] 15.2 % High 11.6-14.6 [facility] Comment on above: Performed By: #### L 501.5200, L100.0100, L500.2500, L501.2300 ####[facility] [address] [place], [address] Hematocrit (Bld) [Volume fraction] 27.2 % Low 37-47 [facility] Comment on above: Performed By: #### L 501.5200, L100.0100, L500.2500, L501.2300 ####[facility] [address] [place], [address] Hemoglobin (Bld) [Mass/Vol] 8.8 g/dL Low 12.0-15.0 [facility] Comment on above: Performed By: #### L 501.5200, L100.0100, L500.2500, L501.2300 ####[facility] [address] [place], [address] IG% 0.400 Normal 0.0-0.9 [facility] Comment on above: Result Comment: IG% - Immature Granulocytes (promyelocytes, myelocytes andmetamyelocytes) > 1% indicates that a LEFT SHIFT is Present. Performed By: #### L 501.5200, L100.0100, L500.2500, L501.2300 ####[facility] [address] [place], [address] Lymphocytes/100 WBC (Bld) 28.9 % Normal 19-41 [facility] Comment on above: Performed By: #### L 501.5200, L100.0100, L500.2500, L501.2300 ####[facility] [address] [place], [address] MCH (RBC) [Entitic mass] 24.4 pg Low 27.0-32.0 [facility] Comment on above: Performed By: #### L 501.5200, L100.0100, L500.2500, L501.2300 ####[facility] [address] [place], [address] MCHC (RBC) [Mass/Vol] 32.4 g/dL Normal 32-36 [facility] Comment on above: Performed By: #### L 501.5200, L100.0100, L500.2500, L501.2300 ####[facility] [address] [place], [address] MCV (RBC) [Entitic vol] 75.3 fL Low 81-99 [facility] Comment on above: Performed By: #### L 501.5200, L100.0100, L500.2500, L501.2300 ####[facility] [address] [place], [address] Monocytes/100 WBC (Bld) 9.4 % Normal 0-10 [facility] Comment on above: Performed By: #### L 501.5200, L100.0100, L500.2500, L501.2300 ####[facility] [address] [place], [address] Neutrophils/100 WBC (Bld) 59.2 % Normal 47-70 [facility] Comment on above: Performed By: #### L 501.5200, L100.0100, L500.2500, L501.2300 ####[facility] [address] [place], [address] Nucleated RBC (Bld) [#/Vol] 0 10*3/uL Normal 0-5 [facility] Comment on above: Performed By: #### L 501.5200, L100.0100, L500.2500, L501.2300 ####[facility] [address] [place], [address] Platelet mean volume (Bld) [Entitic vol] 9.3 fL Normal 6.2-12.0 [facility] Comment on above: Performed By: #### L 501.5200, L100.0100, L500.2500, L501.2300 ####[facility] [address] [place], [address] Platelets (Bld) [#/Vol] 396 10*3/uL Normal 150-450 [facility] Comment on above: Performed By: #### L 501.5200, L100.0100, L500.2500, L501.2300 ####[facility] [address] [place], [address] RBC (Bld) [#/Vol] 3.61 10*6/uL Low 4.2-5.4 [facility] Comment on above: Performed By: #### L 501.5200, L100.0100, L500.2500, L501.2300 ####[facility] [address] [place], [address] RDW SD 41.3 fl Normal 35.1-43.9 [facility] Comment on above: Performed By: #### L 501.5200, L100.0100, L500.2500, L501.2300 ####[facility] [address] [place], [address] WBC (Bld) [#/Vol] 5.3 10*3/uL Normal 4.4-11.0 [facility] Comment on above: Performed By: #### L 501.5200, L100.0100, L500.2500, L501.2300 ####[facility] [address] [place], [address] CDIFF (PCR)on 10-29-2024 CDIFF Is the patient recei ving laxatives? N New/unexplained onset of 3 or more stools in past 24 hrs? Y Pending 027 027 NAP1-B1 Presumptive Negative *for epidemiolologic???use C. Diff PCR Negative- No toxigenic C. Diff Detected Normal [facility] Comment on above: Performed By: #### M 100.6796 ####[facility] [address] [place], [address] ENTERIC PATHOGEN PANEL STOOL on 10-29-2024 EP PANEL CAMPYLOBACTER Not Detected Norovirus Not Detected Rotavirus Not Detected Salmonella Not Detected Shiga Toxin Not Detected Shigella sp. Not Detected VIBRIO Not Detected Yersinia Not Detected Normal [facility] Comment on above: Performed By: #### M 100.637 ####[facility] [address] [place], [address] Magnesiumon 10-29-2024 Magnesium [Mass/Vol] 1.5 mg/dL Normal 1.5-2.2 [facility] Comment on above: Performed By: #### L 501.5200, L100.0100, L500.2500, L501.2300 ####[facility] [address] [place], [address] Phosphoruson 10-29-2024 Phosphate [Mass/Vol] 4.0 mg/dL Normal 2.7-4.5 [facility] Comment on above: Performed By: #### L 501.5200, L100.0100, L500.2500, L501.2300 ####[facility] [address] [place], [address] Basic Metabolic Profile (BMP )on 10-28-2024 BUN/CRE 10.4 RATIO Normal 10-20 [facility] Comment on above: Performed By: #### L 100.0100, L501.5200, L500.2500 ####[facility] [address] [place], [address] Calcium [Mass/Vol] 10.5 mg/dL Normal 7.6-11.0 [facility] Comment on above: Performed By: #### L 100.0100, L501.5200, L500.2500 ####[facility] [address] [place], [address] Chloride [Moles/Vol] 81 mmol/L Low 98-108 [facility] Comment on above: Performed By: #### L 100.0100, L501.5200, L500.2500 ####[facility] [address] [place], [address] CO2 [Moles/Vol] 20.9 mmol/L Low 21.0-32.0 [facility] Comment on above: Performed By: #### L 100.0100, L501.5200, L500.2500 ####[facility] [address] [place], [address] Creatinine [Mass/Vol] 3.36 mg/dL High 0.70-1.20 [facility] Comment on above: Performed By: #### L 100.0100, L501.5200, L500.2500 ####[facility] [address] [place], [address] ECRCL 24.64 ml/min Low 50-250 [facility] Comment on above: Performed By: #### L 100.0100, L501.5200, L500.2500 ####[facility] [address] [place], [address] GAP 26 High 5-15 [facility] Comment on above: Performed By: #### L 100.0100, L501.5200, L500.2500 ####[facility] [address] [place], [address] GFR/1.73 sq M.predicted among non-blacks MDRD (S/P/Bld) [Vol rate/Area] 17 mL/min/{1.73_m2} Low >60 [facility] Comment on above: Result Comment: mL/m in/1.73m2 CKD-EPI Creatinine Equation (2020) Performed By: #### L 100.0100, L501.5200, L500.2500 ####[facility] [address] [place], [address] Glucose [Mass/Vol] 165 mg/dL High 70-99 [facility] Comment on above: Performed By: #### L 100.0100, L501.5200, L500.2500 ####[facility] [address] [place], [address] Potassium [Moles/Vol] 4.5 mmol/L Normal 3.3-5.1 [facility] Comment on above: Result Comment: Hemo lysis present, Results??could be affected.?? Performed By: #### L 100.0100, L501.5200, L500.2500 ####[facility] [address] [place], [address] Sodium [Moles/Vol] 127 mmol/L Low 133-145 [facility] Comment on above: Performed By: #### L 100.0100, L501.5200, L500.2500 ####[facility] [address] [place], [address] Urea nitrogen [Mass/Vol] 35 mg/dL High 4-19 [facility] Comment on above: Performed By: #### L 100.0100, L501.5200, L500.2500 ####[facility] [address] [place], [address] CBC W/Diff, Automatedon 05-0 -2024 Absolute Lymph 2.13 X10 3/uL Normal 0.83-4.51 [facility] Comment on above: Performed By: #### L 100.0100, L501.5200, L500.2500 ####[facility] [facility] [address] [place], [address] Absolute Neut 9.2 X10 3/uL High 2.0-7.7 [facility] Comment on above: Performed By: #### L 100.0100, L501.5200, L500.2500 ####[facility] [address] [place], [address] Basophils/100 WBC (Bld) 0.4 % Normal 0-1 [facility] Comment on above: Performed By: #### L 100.0100, L501.5200, L500.2500 ####[facility] [address] [place], [address] Eosinophils/100 WBC (Bld) 0.1 % Normal 0-5 [facility] Comment on above: Performed By: #### L 100.0100, L501.5200, L500.2500 ####[facility] [address] [place], [address] Erythrocyte distribution width (RBC) [Ratio] 15.5 % High 11.6-14.6 [facility] Comment on above: Performed By: #### L 100.0100, L501.5200, L500.2500 ####[facility] [address] [place], [address] Hematocrit (Bld) [Volume fraction] 38.3 % Normal 37-47 [facility] Comment on above: Performed By: #### L 100.0100, L501.5200, L500.2500 ####[facility] [address] [place], [address] Hemoglobin (Bld) [Mass/Vol] 12.2 g/dL Normal 12.0-15.0 [facility] Comment on above: Performed By: #### L 100.0100, L501.5200, L500.2500 ####[facility] [address] [place], [address] IG% 0.500 Normal 0.0-0.9 [facility] Comment on above: Result Comment: IG% - Immature Granulocytes (promyelocytes, myelocytes andmetamyelocytes) > 1% indicates that a LEFT SHIFT is Present. Performed By: #### L 100.0100, L501.5200, L500.2500 ####[facility] [address] [place], [address] Lymphocytes/100 WBC (Bld) 17.1 % Low 19-41 [facility] Comment on above: Performed By: #### L 100.0100, L501.5200, L500.2500 ####[facility] [address] [place], [address] MCH (RBC) [Entitic mass] 24.4 pg Low 27.0-32.0 [facility] Comment on above: Performed By: #### L 100.0100, L501.5200, L500.2500 ####[facility] [address] [place], [address] MCHC (RBC) [Mass/Vol] 31.9 g/dL Low 32-36 [facility] Comment on above: Performed By: #### L 100.0100, L501.5200, L500.2500 ####[facility] [address] [place], [address] MCV (RBC) [Entitic vol] 76.4 fL Low 81-99 [facility] Comment on above: Performed By: #### L 100.0100, L501.5200, L500.2500 ####[facility] [address] [place], [address] Monocytes/100 WBC (Bld) 7.7 % Normal 0-10 [facility] Comment on above: Performed By: #### L 100.0100, L501.5200, L500.2500 ####[facility] [address] [place], [address] Neutrophils/100 WBC (Bld) 74.2 % High 47-70 [facility] Comment on above: Performed By: #### L 100.0100, L501.5200, L500.2500 ####[facility] [address] [place], [address] Nucleated RBC (Bld) [#/Vol] 0 10*3/uL Normal 0-5 [facility] Comment on above: Performed By: #### L 100.0100, L501.5200, L500.2500 ####[facility] [address] [place], [address] Platelet mean volume (Bld) [Entitic vol] 10.1 fL Normal 6.2-12.0 [facility] Comment on above: Performed By: #### L 100.0100, L501.5200, L500.2500 ####[facility] [address] [place], [address] Platelets (Bld) [#/Vol] 675 10*3/uL High 150-450 [facility] Comment on above: Performed By: #### L 100.0100, L501.5200, L500.2500 ####[facility] [address] [place], [address] RBC (Bld) [#/Vol] 5.01 10*6/uL Normal 4.2-5.4 [facility] Comment on above: Performed By: #### L 100.0100, L501.5200, L500.2500 ####[facility] [address] [place], [address] RDW SD 41.5 fl Normal 35.1-43.9 [facility] Comment on above: Performed By: #### L 100.0100, L501.5200, L500.2500 ####[facility] [address] [place], [address] WBC (Bld) [#/Vol] 12.4 10*3/uL High 4.4-11.0 [facility] Comment on above: Performed By: #### L 100.0100, L501.5200, L500.2500 ####[facility] [address] [place], [address] Emergency Department Summary on 10-28-2024 Emergency Department Summary Normal [facility] H AND P Exam - Hospitaliston 10-28-2024 H&P Exam - Hospitalist Normal [facility] Magnesiumon 10-28-2024 Magnesium [Mass/Vol] 1.7 mg/dL Normal 1.5-2.2 [facility] Comment on above: Performed By: #### L 100.0100, L501.5200, L500.2500 ####[facility] [address] [place], [address] ALLIED HEALTHon 10-26-2024 ALLIED HEALTH HNO ID: [id number] Author: STEFANY CALVERT RN Service: Wound/Ostomy Author [...] x 1 1/4 Oval (Coloplast 2Pc Pouch #39177 Convex Wafer #[id number]) Placed Attached 2pc Pouch Over Over Stoma [...] Independent Recommended Supplies: Coloplast 2pc High Output #23162 Pouch attached to drainage bag Coloplast #99439 Convex Wafer Cut To 1 1/2 x 1 1/4 Oval [place] #7806 Large Barrier Ring [place] Barrier Extenders # [phone] Please Advise Wound Care [phone] If You Have Difficulty Getting Supplies From Cart Room. Patient tolerated the change well. Supplies at bedside. If additional ostomy supplies are needed, please call [facility] [employer] ([phone]) for above mentioned supplies. If supplies are unavailable in [facility] [employer], please secure chat [facility] or call extension [phone] to request more supplies. Normal [facility] CBC panel Auto (Bld)on 10-26 Erythrocyte distribution width (RBC) [Ratio] 14.7 % Normal 11.5-15.0 [facility] Comment on above: Order Comment: Speci men Type: BLOOD SPECIMEN Ordering Facility: [facility] Address: [address] [place] [address] Performed By: #### 5 7021-8 #### [facility] CLIA [id number] [address] [place] [address] [place] Hematocrit (Bld) [Volume fraction] 29.9 % Low 36.0-46.0 [facility] Comment on above: Order Comment: Speci men Type: BLOOD SPECIMEN Ordering Facility: [facility] Address: [address] [place] [address] Performed By: #### 5 7021-8 #### [facility] CLIA [id number] [address] [place] [address] [place] Hemoglobin (Bld) [Mass/Vol] 9.2 g/dL Low 11.5-15.5 [facility] Comment on above: Order Comment: Speci men Type: BLOOD SPECIMEN Ordering Facility: [facility] Address: [address] [place] [address] Performed By: #### 5 7021-8 #### [facility] CLIA [id number] [address] [place] [address] [place] MCH (RBC) [Entitic mass] 24.1 pg Low 26.0-34.0 [facility] Comment on above: Order Comment: Speci men Type: BLOOD SPECIMEN Ordering Facility: [facility] Address: [address] [place] [address] Performed By: #### 5 7021-8 #### [facility] CLIA [id number] [address] [place] [address] [place] MCHC (RBC) [Mass/Vol] 30.8 g/dL Normal 30.5-36.0 [facility] Comment on above: Order Comment: Speci men Type: BLOOD SPECIMEN Ordering Facility: [facility] Address: [address] [place] [address] Performed By: #### 5 7021-8 #### [facility] CLIA [id number] [address] [place] [address] [place] MCV (RBC) [Entitic vol] 78.5 fL Low 80.0-100.0 [facility] Comment on above: Order Comment: Speci men Type: BLOOD SPECIMEN Ordering Facility: [facility] Address: [address] [place] [id number] Performed By: #### 5 7021-8 #### [facility] CLIA [id number] [address] [place] [address] [place] Nucleated RBC (Bld) [#/Vol] 10*3/uL Normal <0.01 [facility] Comment on above: Order Comment: Speci men Type: BLOOD SPECIMEN Ordering Facility: [facility] Address: [address] [place] [address] Performed By: #### 5 7021-8 #### [facility] CLIA [id number] [address] [place] [address] [place] Platelet mean volume (Bld) [Entitic vol] 8.9 fL Low 9.0-12.7 [facility] Comment on above: Order Comment: Speci men Type: BLOOD SPECIMEN Ordering Facility: [facility] Address: [address] [place] [address] Performed By: #### 5 7021-8 #### [facility] CLIA [id number] [address] [place] [address] [place] Platelets (Bld) [#/Vol] 371 10*3/uL Normal 150-400 [facility] Comment on above: Order Comment: Speci men Type: BLOOD SPECIMEN Ordering Facility: [facility] Address: [address] [place] [address] Performed By: #### 5 7021-8 #### [facility] CLIA [id number] [address] [place], [place] [address] [place] RBC (Bld) [#/Vol] 3.81 10*6/uL Low 3.90-5.20 [facility] Comment on above: Order Comment: Speci men Type: BLOOD SPECIMEN Ordering Facility: [facility] Address: [address] [place] [address] Performed By: #### 5 7021-8 #### [facility] CLIA [id number] [address] [place] [id number] [place] WBC (Bld) [#/Vol] 4.79 10*3/uL Normal 3.70-11.00 [facility] Comment on above: Order Comment: Speci men Type: BLOOD SPECIMEN Ordering Facility: [facility] Address: [address] [place] [address] Performed By: #### 5 7021-8 #### [facility] CLIA [id number] [address] [place] [id number] [place] CNDSon 10-26-2024 [facility] HNO ID: [id number] Author: WILLIS FINCH DO Service: Hospital Medicine Author Type: Physician Type: Discharge Summary Filed: 10/26/2024 15:42 Note Text: DISCHARGE SUMMARY PATIENT NAME: Daly Joaquinr ADMISSION DATE: 10/19/2024 DISCHARGE DATE: 10/26/2024 ATTENDING [...] resection with ostomy Patient sent to an [facility] ED due to high output ostomy She had evidence of renal failure as well as multiple electrolyte abnormalities (see below) Gastroenterology consulted C. diff negative Stool PCR negative Home Imodium dose was increased Ostomy care offered Output did lessen Patient will follow-up at [facility] with her surgeon Dr. Smith as well as transplant surgeon Dr. Devine Acute kidney injury Creatinine 2.8 in [facility] ED Likely secondary to GI losses Patient given IV fluids Creatinine normalized by discharge Hyponatremia Sodium 130 in [facility] ED Likely secondary to GI losses Patient given IV fluids Hypokalemia Potassium 3.3 in [facility] ED Likely secondary to GI losses Supplementation provided Rx for potassium chloride provided on discharge Left foot discoloration, ?gangrene Left toes are black, per patient this began while she was at [facility] Chart review indicates she had bilateral [...] These medications were sent to e- [id number] [place] [address] - [address] (more content not included)... Normal [facility] Comprehensive metabolic 2000 panelon 10-26-2024 Albumin [Mass/Vol] 3.0 g/dL Low 3.2-5.0 [facility] Comment on above: Order Comment: Dora finch Type: BLOOD SPECIMEN Ordering Facility: [facility] Address: [address] [place] [address] Performed By: #### 5 7021-8 #### [facility] CLIA [id number] [address] [place] [address] [place] ALP [Catalytic activity/Vol] 125 U/L High 45-117 [facility] Comment on above: Order Comment: Dora finch Type: BLOOD SPECIMEN Ordering Facility: [facility] Address: [address] [place], [place] [address] Performed By: #### 5 7021-8 #### [facility] CLIA [id number] [address] [place] [address] [place] ALT [Catalytic activity/Vol] 16 U/L Normal 13-61 [facility] Comment on above: Order Comment: Dora finch Type: BLOOD SPECIMEN Ordering Facility: [facility] Address: [address] [place] [address] Result Comment: Resu lts may be falsely depressed after the administration of Sulfasalazine and/or Sulfapyridine. Performed By: #### 5 7021-8 #### [facility] CLIA [id number] [address] [place], [place] [address] [place] Anion gap [Moles/Vol] 9 mmol/L Normal 5-16 [facility] Comment on above: Order Comment: Speci men Type: BLOOD SPECIMEN Ordering Facility: [facility] Address: [address] [place] [address] Performed By: #### 5 7021-8 #### [facility] CLIA [id number] [address] [place] [address] [place] AST [Catalytic activity/Vol] 24 U/L Normal 8-34 [facility] Comment on above: Order Comment: Florii stef Type: BLOOD SPECIMEN Ordering Facility: [facility] Address: [address] [place] [address] Result Comment: Resu lts may be falsely depressed after the administration of Sulfasalazine and/or Sulfapyridine. Performed By: #### 5 7021-8 #### [facility] CLIA [id number] [address] [place] [address] [place] Bilirubin [Mass/Vol] 1.2 mg/dL High 0.2-1.0 [facility] Comment on above: Order Comment: Florii stef Type: BLOOD SPECIMEN Ordering Facility: [facility] Address: [address] [place] [address] Performed By: #### 5 7021-8 #### [facility] CLIA [id number] [address] [place] [address] [place] Calcium [Mass/Vol] 9.5 mg/dL Normal 8.5-10.5 [facility] Comment on above: Order Comment: Florii stef Type: BLOOD SPECIMEN Ordering Facility: [facility] Address: [address] [place] [address] Performed By: #### 5 7021-8 #### [facility] CLIA [id number] [address] [place], [place] [address] [place] Chloride [Moles/Vol] 94 mmol/L Low 98-107 [facility] Comment on above: Order Comment: Speci men Type: BLOOD SPECIMEN Ordering Facility: [facility] Address: [address] [place] [address] Performed By: #### 5 7021-8 #### [facility] CLIA [id number] [address] [place] [address] [place] CO2 [Moles/Vol] 30 mmol/L Normal 21-32 [facility] Comment on above: Order Comment: Speci men Type: BLOOD SPECIMEN Ordering Facility: [facility] Address: [address] [place] [address] Performed By: #### 5 7021-8 #### [facility] CLIA [id number] [address] [place] [address] [place] Creatinine [Mass/Vol] 0.92 mg/dL Normal 0.51-0.95 [facility] Comment on above: Order Comment: Speci men Type: BLOOD SPECIMEN Ordering Facility: [facility] Address: [address] [place] [address] Result Comment: Marissa ents receiving either N-Acetylcysteine (NAC) or Metamizole prior to venipuncture, may have falsely depressed results. Performed By: #### 5 7021-8 #### [facility] CLIA [id number] [address] [place] [address] [place] Creatinine and Glomerular filtration rate.predicted panel (S/P/Bld) 80 mL/min/1.73m??? Normal >=60 [facility] Comment on above: Order Comment: Speci men Type: BLOOD SPECIMEN Ordering Facility: [facility] Address: [address] [place] [address] Result Comment: Zeny mated Glomerular Filtration Rate [...] GFR. Performed By: #### 5 7021-8 #### [facility] CLIA [id number] [address] [place] [address] [place] Glucose [Mass/Vol] 100 mg/dL Normal 70-100 [facility] Comment on above: Order Comment: Dora finch Type: BLOOD SPECIMEN Ordering Facility: [facility] Address: [address] [place], [place] [address] Result Comment: The [place] Diabetes Association (ADA) provides guidance for cutoff [...] Standards of Medical Care in Diabetes 2016, [place] [employer]. Diabetes Care. 2016.39(Suppl 1). Results may be falsely elevated after the administration of Sulfapyridine. Results may be falsely depressed after the administration of Sulfasalazine. Performed By: #### 5 7021-8 #### [facility] CLIA [id number] [address] [place] [address] [place] Potassium [Moles/Vol] 3.4 mmol/L Low 3.5-5.1 [facility] Comment on above: Order Comment: Dora finch Type: BLOOD SPECIMEN Ordering Facility: [facility] Address: [address] [place] [address] Performed By: #### 5 7021-8 #### [facility] CLIA [id number] [address] [place] [address] [place] Protein [Mass/Vol] 7.3 g/dL Normal 6.0-8.5 [facility] Comment on above: Order Comment: Dora finch Type: BLOOD SPECIMEN Ordering Facility: [facility] Address: [address] [place] [address] Performed By: #### 5 7021-8 #### [facility] CLIA [id number] [address] [place], [place] [address] [place] Sodium [Moles/Vol] 133 mmol/L Low 136-145 [facility] Comment on above: Order Comment: Speci men Type: BLOOD SPECIMEN Ordering Facility: [facility] Address: [address] [place] [address] Performed By: #### 5 7021-8 #### [facility] CLIA [id number] [address] [place] [address] [place] Urea nitrogen [Mass/Vol] 8 mg/dL Normal 7-26 [facility] Comment on above: Order Comment: Speci men Type: BLOOD SPECIMEN Ordering Facility: [facility] Address: [address] [place] [address] Performed By: #### 5 7021-8 #### [facility] CLIA [id number] [address] [place] [address] [place] Magnesium SerPl-mCncon 10-26 Magnesium [Mass/Vol] 1.5 mg/dL Low 1.6-2.6 [facility] Comment on above: Order Comment: Speci men Type: BLOOD SPECIMEN Ordering Facility: [facility] Address: [address] [place] [address] Performed By: #### 2 4321-2 #### [facility] CLIA [id number] [address] [place] [address] [place] ALLIED HEALTHon 10-25-2024 ALLIED HEALTH HNO ID: [id number] Author: STEFANY CALVERT, NATHANAEL Service: Wound/Ostomy Author Type: Registered Nurse [...] nursing Recommended Supplies: Coloplast 2pc High Output #16478 Pouch attached to drainage bag Coloplast #57241 Convex Wafer Cut To 1 1/2 x 1 1/4 Oval [place] #8815 Small Barrier Ring [place] Barrier Extenders # [id number] Please Advise Wound Care [phone] If You Have Difficulty Getting Supplies From Cart Room. If additional ostomy supplies are needed, please call [facility] ([phone]) for above mentioned supplies. If supplies are unavailable in [facility], please secure chat [facility] or call extension [phone] to request more supplies. [facility] ALLIED HEALTH HNO ID: [id number] Author: STEFANY CALVERT RN Service: Wound/Ostomy Author [...] Supplies Are Available Through Cart/Supply Room In [facility]. Recommended Supplies: Coloplast 2pc High Output #20845 Pouch attached to drainage bag Coloplast #61090 Flat Wafer [place] #8815 Small Barrier Ring [place] Barrier Extenders # [id number] Please Advise Wound Care [phone] If You Have Difficulty Getting Supplies From Cart Room. Normal [facility] CBC panel Auto (Bld)on 10-25 Erythrocyte distribution width (RBC) [Ratio] 14.8 % Normal 11.5-15.0 [facility] Comment on above: Order Comment: Dora finch Type: BLOOD SPECIMEN Ordering Facility: [facility] Address: [address] [place] [address] Performed By: #### 5 7021-8 #### [facility] CLIA [id number] [address] [place] [address] [place] Hematocrit (Bld) [Volume fraction] 33.3 % Low 36.0-46.0 [facility] Comment on above: Order Comment: Dora finch Type: BLOOD SPECIMEN Ordering Facility: [facility] Address: [address] [place] [address] Performed By: #### 5 7021-8 #### [facility] CLIA [id number] [address] [place] [address] [place] Hemoglobin (Bld) [Mass/Vol] 10.3 g/dL Low 11.5-15.5 [facility] Comment on above: Order Comment: Dora finch Type: BLOOD SPECIMEN Ordering Facility: [facility] Address: [address] [place] [address] Performed By: #### 5 7021-8 #### [facility] CLIA [id number] [address] [place] [address] OF [facility] MCH (RBC) [Entitic mass] 24.0 pg Low 26.0-34.0 [facility] Comment on above: Order Comment: Speci men Type: BLOOD SPECIMEN Ordering Facility: [facility] Address: [address] [place] [address] Performed By: #### 5 7021-8 #### [facility] CLIA [id number] [address] [place] [address] [place] MCHC (RBC) [Mass/Vol] 30.9 g/dL Normal 30.5-36.0 [facility] Comment on above: Order Comment: Speci men Type: BLOOD SPECIMEN Ordering Facility: [facility] Address: [address] [place] [address] Performed By: #### 5 7021-8 #### [facility] [place] [id number] [address] [place] [address] [place] MCV (RBC) [Entitic vol] 77.6 fL Low 80.0-100.0 [facility] Comment on above: Order Comment: Speci men Type: BLOOD SPECIMEN Ordering Facility: [facility] Address: [address] [place] [address] Performed By: #### 5 7021-8 #### [facility] [place] [id number] [address] [place] [address] [place] Nucleated RBC (Bld) [#/Vol] 10*3/uL Normal <0.01 [facility] Comment on above: Order Comment: Speci men Type: BLOOD SPECIMEN Ordering Facility: [facility] Address: [address] [place] [address] Performed By: #### 5 7021-8 #### [facility] IA [id number] [address] [place] [address] OF [place] Platelet mean volume (Bld) [Entitic vol] 9.3 fL Normal 9.0-12.7 [facility] Comment on above: Order Comment: Speci men Type: BLOOD SPECIMEN Ordering Facility: [facility] Address: [address] [place] [id number] Performed By: #### 5 7021-8 #### [facility] CLIA [id number] [address] [place], [place] [address] [facility] Platelets (Bld) [#/Vol] 364 10*3/uL Normal 150-400 [facility] Comment on above: Order Comment: Speci men Type: BLOOD SPECIMEN Ordering Facility: [facility] Address: [address] [place], [place] [address] Performed By: #### 5 7021-8 #### [facility] CLIA [id number] [address] [place] [address] RBC (Bld) [#/Vol] 4.29 10*6/uL Normal 3.90-5.20 [facility] Comment on above: Order Comment: Speci men Type: BLOOD SPECIMEN Ordering Facility: [facility] Address: [address] [place] [address] Performed By: #### 5 7021-8 #### [facility] CLIA [id number] [address] [place] [address] [place] WBC (Bld) [#/Vol] 6.18 10*3/uL Normal 3.70-11.00 [facility] Comment on above: Order Comment: Speci men Type: BLOOD SPECIMEN Ordering Facility: [facility] Address: [facility] [place] [id number] Performed By: #### 5 7021-8 #### [facility] CLIA [id number] [address] [place], [place] [address] [facility] Comprehensive metabolic 2000 panelon 10-25-2024 Albumin [Mass/Vol] 3.0 g/dL Low 3.2-5.0 [facility] Comment on above: Order Comment: Speci men Type: BLOOD SPECIMEN Ordering Facility: [facility] Address: [facility] [place] [address] Performed By: #### 5 7021-8 #### [facility] CLIA [id number] [address] [place] [address] [place] ALP [Catalytic activity/Vol] 137 U/L High 45-117 [facility] Comment on above: Order Comment: Speci men Type: BLOOD SPECIMEN Ordering Facility: [facility] Address: [address] [place] [address] Performed By: #### 5 7021-8 #### [facility] CLIA [id number] [address] [place] [address] [place] ALT [Catalytic activity/Vol] 14 U/L Normal 13-61 [facility] Comment on above: Order Comment: Speci men Type: BLOOD SPECIMEN Ordering Facility: [facility] Address: [address] [place] [address] Result Comment: Resu lts may be falsely depressed after the administration of Sulfasalazine and/or Sulfapyridine. Performed By: #### 5 7021-8 #### [facility] CLIA [id number] [address] [place] [address] [place] Anion gap [Moles/Vol] 9 mmol/L Normal 5-16 [facility] Comment on above: Order Comment: Speci men Type: BLOOD SPECIMEN Ordering Facility: [facility] Address: [address] [place] [address] Performed By: #### 5 7021-8 #### [facility] CLIA [id number] [address] [place] [address] [place] AST [Catalytic activity/Vol] 16 U/L Normal 8-34 [facility] Comment on above: Order Comment: Speci men Type: BLOOD SPECIMEN Ordering Facility: [facility] Address: [address] [place] [address] Result Comment: Resu lts may be falsely depressed after the administration of Sulfasalazine and/or Sulfapyridine. Performed By: #### 5 7021-8 #### [facility] CLIA [id number] [address] [place] [address] [place] Bilirubin [Mass/Vol] 1.3 mg/dL High 0.2-1.0 [facility] Comment on above: Order Comment: Speci men Type: BLOOD SPECIMEN Ordering Facility: [facility] Address: [address] [place] [address] Performed By: #### 5 7021-8 #### [facility] CLIA [id number] [address] [place] [address] [place] Calcium [Mass/Vol] 9.6 mg/dL Normal 8.5-10.5 [facility] Comment on above: Order Comment: Speci men Type: BLOOD SPECIMEN Ordering Facility: [facility] Address: [address] [place] [address] Performed By: #### 5 7021-8 #### [facility] CLIA [id number] [address] [place] [address] [place] Chloride [Moles/Vol] 93 mmol/L Low 98-107 [facility] Comment on above: Order Comment: Speci men Type: BLOOD SPECIMEN Ordering Facility: [facility] Address: [address] [place] [address] Performed By: #### 5 7021-8 #### [facility] CLIA [id number] [address] [place] [address] [place] CO2 [Moles/Vol] 33 mmol/L High 21-32 [facility] Comment on above: Order Comment: Speci men Type: BLOOD SPECIMEN Ordering Facility: [facility] Address: [address] [place] [address] Performed By: #### 5 7021-8 #### [facility] CLIA [id number] [address] [place] [address] [place] Creatinine [Mass/Vol] 1.00 mg/dL High 0.51-0.95 [facility] Comment on above: Order Comment: Speci men Type: BLOOD SPECIMEN Ordering Facility: [facility] Address: [address] [place] [address] Result Comment: Marissa ents receiving either N-Acetylcysteine (NAC) or Metamizole prior to venipuncture, may have falsely depressed results. Performed By: #### 5 7021-8 #### [facility] CLIA [id number] [address] [place] [address] [place] Creatinine and Glomerular filtration rate.predicted panel (S/P/Bld) 73 mL/min/1.73m??? Normal >=60 [facility] Comment on above: Order Comment: Dora finch Type: BLOOD SPECIMEN Ordering Facility: [facility] Address: [address] [place] [address] Result Comment: Zeny mated Glomerular Filtration Rate [...] GFR. Performed By: #### 5 7021-8 #### [facility] CLIA [id number] [address] [place] [address] [place] Glucose [Mass/Vol] 89 mg/dL Normal 70-100 [facility] Comment on above: Order Comment: Dora finch Type: BLOOD SPECIMEN Ordering Facility: [facility] Address: [address] [place] [address] Result Comment: The [place] Diabetes Association (ADA) provides guidance for cutoff [...] Standards of Medical Care in Diabetes 2016, [place] [employer]. Diabetes Care. 2016.39(Suppl 1). Results may be falsely elevated after the administration of Sulfapyridine. Results may be falsely depressed after the administration of Sulfasalazine. Performed By: #### 5 7021-8 #### [facility] CLIA [id number] [address] [place] [address] [place] Potassium [Moles/Vol] 3.4 mmol/L Low 3.5-5.1 [facility] Comment on above: Order Comment: Speci men Type: BLOOD SPECIMEN Ordering Facility: [facility] Address: [address] [place] [address] Performed By: #### 5 7021-8 #### [facility] CLIA [id number] [address] [place] [address] [place] Protein [Mass/Vol] 7.7 g/dL Normal 6.0-8.5 [facility] Comment on above: Order Comment: Speci men Type: BLOOD SPECIMEN Ordering Facility: [facility] Address: [address] [place] [address] Performed By: #### 5 7021-8 #### [facility] CLIA [id number] [address] [place] [address] [place] Sodium [Moles/Vol] 135 mmol/L Low 136-145 [facility] Comment on above: Order Comment: Speci men Type: BLOOD SPECIMEN Ordering Facility: [facility] Address: [address] [place] [address] Performed By: #### 5 7021-8 #### [facility] CLIA [id number] [address] [place] [address] [place] Urea nitrogen [Mass/Vol] 11 mg/dL Normal 7-26 [facility] Comment on above: Order Comment: Speci men Type: BLOOD SPECIMEN Ordering Facility: [facility] Address: [address] [place] [address] Performed By: #### 5 7021-8 #### [facility] CLIA [id number] [address] [place] [address] [place] Magnesium SerPl-mCncon 10-25 Magnesium [Mass/Vol] 1.7 mg/dL Normal 1.6-2.6 [facility] Comment on above: Order Comment: Speci men Type: BLOOD SPECIMEN Ordering Facility: [facility] Address: [address] [place] [address] Performed By: #### 5 7021-8 #### [facility] CLIA [id number] [address] [id number] [place] CBC panel Auto (Bld)on 10-24 Erythrocyte distribution width (RBC) [Ratio] 14.8 % Normal 11.5-15.0 [facility] Comment on above: Order Comment: Speci men Type: BLOOD SPECIMENOrdering Facility: [facility] Address: [address] [place] [address] Performed By: #### 5 8410-2 ####[facility] [id number] [address] OF [facility] Hematocrit (Bld) [Volume fraction] 32.6 % Low 36.0-46.0 [facility] Comment on above: Order Comment: Speci men Type: BLOOD SPECIMENOrdering Facility: [facility] Address: [address] [place] [address] Performed By: #### 5 8410-2 ####[facility] [id number] [address] [place] Hemoglobin (Bld) [Mass/Vol] 10.3 g/dL Low 11.5-15.5 [facility] Comment on above: Order Comment: Speci men Type: BLOOD SPECIMENOrdering Facility: [facility] Address: [address] [place] [address] Performed By: #### 5 8410-2 ####[facility] [id number] [address] [place] MCH (RBC) [Entitic mass] 24.1 pg Low 26.0-34.0 [facility] Comment on above: Order Comment: Speci men Type: BLOOD SPECIMENOrdering Facility: [facility] Address: [address] [place] [address] Performed By: #### 5 8410-2 ####[facility] [id number] [address] [place] MCHC (RBC) [Mass/Vol] 31.6 g/dL Normal 30.5-36.0 [facility] Comment on above: Order Comment: Speci men Type: BLOOD SPECIMENOrdering Facility: [facility] Address: [facility] [place] [address] Performed By: #### 5 8410-2 ####[facility] [id number] [place] [id number] [place] MCV (RBC) [Entitic vol] 76.2 fL Low 80.0-100.0 [facility] Comment on above: Order Comment: Speci men Type: BLOOD SPECIMENOrdering Facility: [facility] Address: [address] [place] [address] Performed By: #### 5 8410-2 ####[facility] [id number] [place] [address] [place] Nucleated RBC (Bld) [#/Vol] 10*3/uL Normal <0.01 [facility] Comment on above: Order Comment: Speci men Type: BLOOD SPECIMENOrdering Facility: [facility] Address: [address] [place] [address] Performed By: #### 5 8410-2 ####[facility] [id number] [place] [address] [place] Platelet mean volume (Bld) [Entitic vol] 8.7 fL Low 9.0-12.7 [facility] Comment on above: Order Comment: Speci men Type: BLOOD SPECIMENOrdering Facility: [facility] Address: [address] [place] [address] Performed By: #### 5 8410-2 ####[facility] [id number] [place] [address] [place] Platelets (Bld) [#/Vol] 408 10*3/uL High 150-400 [facility] Comment on above: Order Comment: Speci men Type: BLOOD SPECIMENOrdering Facility: [facility] Address: [address] [place] [address] Performed By: #### 5 8410-2 ####[facility] [id number] [place] [id number] [facility] [place] RBC (Bld) [#/Vol] 4.28 10*6/uL Normal 3.90-5.20 [facility] Comment on above: Order Comment: Speci men Type: BLOOD SPECIMENOrdering Facility: [facility] Address: [address] [place] [address] Performed By: #### 5 8410-2 ####[facility] [id number] [address] WBC (Bld) [#/Vol] 6.06 10*3/uL Normal 3.70-11.00 [facility] Comment on above: Order Comment: Speci men Type: BLOOD SPECIMENOrdering Facility: [facility] Address: [address] [place] [address] Performed By: #### 5 8410-2 ####[facility]CLIA [id number] [place] [id number] [facility] Comprehensive metabolic 2000 panelon 10-24-2024 Albumin [Mass/Vol] 3.1 g/dL Low 3.2-5.0 [facility] Comment on above: Order Comment: Speci men Type: BLOOD SPECIMENOrdering Facility: [facility] Address: [address] [place] [address] Performed By: #### 1 9123-9, 27543-0 ####[facility] [id number] [place] [address] [place] ALP [Catalytic activity/Vol] 131 U/L High 45-117 [facility] Comment on above: Order Comment: Speci men Type: BLOOD SPECIMENOrdering Facility: [facility] Address: [address] [place] [address] Performed By: #### 1 9123-9, 69449-4 ####[facility] [id number] [place] [id number] [place] ALT [Catalytic activity/Vol] 15 U/L Normal 13-61 [facility] Comment on above: Order Comment: Speci men Type: BLOOD SPECIMENOrdering Facility: [facility] Address: [address] [place] [address] Result Comment: Resu lts may be falsely depressed after the administration of Sulfasalazine and/or Sulfapyridine. Performed By: #### 1 9123-9, 30992-4 ####[facility] [id number] [place] [id number] [place] Anion gap [Moles/Vol] 10 mmol/L Normal 5-16 [facility] Comment on above: Order Comment: Speci men Type: BLOOD SPECIMENOrdering Facility: [facility] Address: [address] [place] [address] Performed By: #### 1 9123-9, 71350-0 ####[facility]ORYCLIA [id number] [place] [address] [place] AST [Catalytic activity/Vol] 12 U/L Normal 8-34 [facility] Comment on above: Order Comment: Speci men Type: BLOOD SPECIMENOrdering Facility: [facility] Address: [address] [place] [address] Result Comment: Resu lts may be falsely depressed after the administration of Sulfasalazine and/or Sulfapyridine. Performed By: #### 1 9123-9, 78201-8 ####[facility]ORYCLIA [id number] [place] [address] [place] Bilirubin [Mass/Vol] 1.2 mg/dL High 0.2-1.0 [facility] Comment on above: Order Comment: Speci men Type: BLOOD SPECIMENOrdering Facility: [facility] Address: [address] [place] [address] Performed By: #### 1 9123-9, 97910-8 ####[facility] [id number] [place] [id number] [place] Calcium [Mass/Vol] 9.6 mg/dL Normal 8.5-10.5 [facility] Comment on above: Order Comment: Speci men Type: BLOOD SPECIMENOrdering Facility: [facility] Address: [address] [place] [address] Performed By: #### 1 9123-9, 35934-5 ####[facility]CLIA [id number] [place] [id number] [place] Chloride [Moles/Vol] 92 mmol/L Low 98-107 [facility] Comment on above: Order Comment: Speci men Type: BLOOD SPECIMENOrdering Facility: [facility] Address: [address] [place] [address] Performed By: #### 1 9123-9, 54996-1 ####[facility]ORYCLIA [id number] [place] [id number] [place] CO2 [Moles/Vol] 31 mmol/L Normal 21-32 [facility] Comment on above: Order Comment: Speci men Type: BLOOD SPECIMENOrdering Facility: [facility] Address: [address] [place] [address] Performed By: #### 1 9123-9, 17232-2 ####[facility]ORYCLIA [id number] [place] [address] [place] Creatinine [Mass/Vol] 1.04 mg/dL High 0.51-0.95 [facility] Comment on above: Order Comment: Speci men Type: BLOOD SPECIMENOrdering Facility: [facility] Address: [address] [place] [address] Result Comment: Marissa ents receiving either N-Acetylcysteine (NAC) or Metamizole prior to venipuncture, may have falsely depressed results. Performed By: #### 1 9123-9, 77578-2 ####[facility]ORYCLIA [id number] [place] [address] [place] Creatinine and Glomerular filtration rate.predicted panel (S/P/Bld) 69 mL/min/1.73m??? Normal >=60 [facility] Comment on above: Order Comment: Speci men Type: BLOOD SPECIMENOrdering Facility: [facility] Address: [address] [place] [address] Result Comment: Zeny mated Glomerular Filtration Rate [...] actual GFR. Performed By: #### 1 9123-9, 29659-2 ####[facility]ORYCLIA [id number] [place] [address] [place] Glucose [Mass/Vol] 101 mg/dL High 70-100 [facility] Comment on above: Order Comment: Dora finch Type: BLOOD SPECIMENOrdering Facility: [facility] Address: [address] [place] [address] Result Comment: The [place] Diabetes Association (ADA) provides guidance for cutoff [...] Standards of Medical Care in Diabetes 2016, [place] [employer]. Diabetes Care. 2016.39(Suppl 1). Results may be falsely elevated after the administration of Sulfapyridine. Results may be falsely depressed after the administration of Sulfasalazine. Performed By: #### 1 9123-9, 00874-1 ####[facility]ORYCLIA [id number] [place] [id number] [place] Potassium [Moles/Vol] 3.4 mmol/L Low 3.5-5.1 [facility] Comment on above: Order Comment: Dora finch Type: BLOOD SPECIMENOrdering Facility: [facility] Address: [address] [place] [address] Performed By: #### 1 9123-9, ####[facility]ORYCLIA [id number] [place] [id number] [place] Protein [Mass/Vol] 7.5 g/dL Normal 6.0-8.5 [facility] Comment on above: Order Comment: Speci men Type: BLOOD SPECIMENOrdering Facility: [facility] Address: [address] [place] [address] Performed By: #### 1 9123-9, ####[facility]ORYCLIA [id number] [place] [id number] [place] Sodium [Moles/Vol] 133 mmol/L Low 136-145 [facility] Comment on above: Order Comment: Speci men Type: BLOOD SPECIMENOrdering Facility: [facility] Address: [address] [place] [address] Performed By: #### 1 9123-9, ####[facility]ORYCLIA [id number] [place] [id number] [place] Urea nitrogen [Mass/Vol] 10 mg/dL Normal 7-26 [facility] Comment on above: Order Comment: Speci men Type: BLOOD SPECIMENOrdering Facility: [facility] Address: [address] [place] [address] Performed By: #### 1 9123-9, ####[facility]ORYCLIA [id number] [place] [id number] [place] Magnesium SerPl-mCncon 10-24 Magnesium [Mass/Vol] 1.8 mg/dL Normal 1.6-2.6 [facility] Comment on above: Order Comment: Speci men Type: BLOOD SPECIMENOrdering Facility: [facility] Address: [address] [place] [address] Performed By: #### 1 9123-9, 67695-5 ####[facility]ORYCLIA [id number] [place] [id number] [place] NUTRITIONon 10-24-2024 NUTRITION HNO ID: [id number] Author: LELIA RAMEY RD Service: ? Author [...] needs: 1849 - 2049 Calorie Calculation Method: [place]-St. Jeor (with activity factor) Estimated protein needs [...] October 24, 2024 TIME: 1:56 PM Normal [facility] CBC panel Auto (Bld)on 10-23 Erythrocyte distribution width (RBC) [Ratio] 14.8 % Normal 11.5-15.0 [facility] Comment on above: Order Comment: Speci men Type: BLOOD SPECIMENOrdering Facility: [facility] Address: [address] [place] [address] Performed By: #### 5 8410-2 ####[facility]ATORYCLIA [id number] [place] [address] [place] Hematocrit (Bld) [Volume fraction] 30.5 % Low 36.0-46.0 [facility] Comment on above: Order Comment: Speci men Type: BLOOD SPECIMENOrdering Facility: [facility] Address: [address] [place] [address] Performed By: #### 5 8410-2 ####[facility]ATORYCLIA [id number] [place] [address] [place] Hemoglobin (Bld) [Mass/Vol] 9.4 g/dL Low 11.5-15.5 [facility] Comment on above: Order Comment: Speci men Type: BLOOD SPECIMENOrdering Facility: [facility] Address: [address] [place] [address] Performed By: #### 5 8410-2 ####[facility]ATORYCLIA [id number] [place] [address] [place] MCH (RBC) [Entitic mass] 24.0 pg Low 26.0-34.0 [facility] Comment on above: Order Comment: Speci men Type: BLOOD SPECIMENOrdering Facility: [facility] Address: [address] [place] [address] Performed By: #### 5 8410-2 ####[facility]ORYCLIA [id number] [address] [place] MCHC (RBC) [Mass/Vol] 30.8 g/dL Normal 30.5-36.0 [facility] Comment on above: Order Comment: Speci men Type: BLOOD SPECIMENOrdering Facility: [facility] Address: [address] [place] [address] Performed By: #### 5 8410-2 ####[facility]ORYCLIA [id number] [address] [place] MCV (RBC) [Entitic vol] 77.8 fL Low 80.0-100.0 [facility] Comment on above: Order Comment: Speci men Type: BLOOD SPECIMENOrdering Facility: [facility] Address: [address] [place] [address] Performed By: #### 5 8410-2 ####[facility]ORYCLIA [id number] [address] [place] Nucleated RBC (Bld) [#/Vol] 10*3/uL Normal <0.01 [facility] Comment on above: Order Comment: Speci men Type: BLOOD SPECIMENOrdering Facility: [facility] Address: [address] [place] [address] Performed By: #### 5 8410-2 ####[facility]ATORYCLIA [id number] [address] [place] Platelet mean volume (Bld) [Entitic vol] 8.6 fL Low 9.0-12.7 [facility] Comment on above: Order Comment: Speci men Type: BLOOD SPECIMENOrdering Facility: [facility] Address: [address] [place] [address] Performed By: #### 5 8410-2 ####[facility]ATORYCLIA [id number] [place] [address] [place] Platelets (Bld) [#/Vol] 413 10*3/uL High 150-400 [facility] Comment on above: Order Comment: Speci men Type: BLOOD SPECIMENOrdering Facility: [facility] Address: [address] [place], [place] [address] Performed By: #### 5 8410-2 ####[facility]ATORYCLIA [id number] [place] [address] [place] RBC (Bld) [#/Vol] 3.92 10*6/uL Normal 3.90-5.20 [facility] Comment on above: Order Comment: Speci men Type: BLOOD SPECIMENOrdering Facility: [facility] Address: [address] [place], [place] [address] Performed By: #### 5 8410-2 ####[facility]ATORYCLIA [id number] [place] [id number] [place] WBC (Bld) [#/Vol] 5.26 10*3/uL Normal 3.70-11.00 [facility] Comment on above: Order Comment: Speci men Type: BLOOD SPECIMENOrdering Facility: [facility] Address: [address] [place], [place] [address] Performed By: #### 5 8410-2 ####[facility] LABORATORYCLIA [id number] [place] [id number] [facility] CONSULTon 10-23-2024 CONSULT HNO ID: [id number] Author: YOHANA MCCARTHY III, DPM Service: Podiatry Author Type: Physician Type: Consults Filed: 10/23/2024 06:37 Note Text: PODIATRIC INITIAL CONSULT Patient Name: Daly Joaquinr Account #: Data Unavailable Admission Date: 10/19/2024 [...] feet. No x-rays have been done today. Stencil Inspector consult regarding management of bilateral foot gangrene. Originally presented to hospital with persistent stools. She had recent vascular follow-up at the end of August. PAST MEDICAL HISTORY Diagnosis Date Attempted suicide (HCC) polysubstance Bipolar depression (HCC) [facility] Camelia Whyte Gestational diabetes mellitus in ([facility]) Impaired fasting blood sugar 06/2015 a1c [...] Urine Negative 08/30/2024 Nitrites Negative 08/30/2024 Specific [place], Ur 1.016 08/30/2024 Protein, Urine 1+ 08/30/2024 Leukest Negative 08/30/2024 WBC, Urine 0-5 /HPF 08/30/2024 Bacteria Negative 08/30/2024 SED RATE/CRP: Sed Rate, Westergren 2 02/05/2022 CRP 10.4 09/03/2024 CRP 20.2 08/31/2024 CRP 18.1 (more content not included)... [facility] CONSULT PROGon 10-23-2024 CONSULT PROG HNO ID: [id number] Author: ALOK GIVENS MD Service: Gastroenterology Author [...] primary team -Outpatient GI follow-up, referral line [phone] -Please call with questions, nothing further to add from a GI standpoint at this time GI will sign off at this time. Please don't hesitate to call us back. Please contact on-call GI staff physician with any questions or concerns. SIGNATURE: Rakesh Davis APRN.JUMBO OPERATOR DATE: October 23, 2024 TIME: 11:56 AM (Some elements copied from my note, dated 10/22, which have been reviewed and updated where appropriate. All reflect current medical decision making from today, 10/23.) Normal [facility] Comprehensive metabolic 2000 panelon 10-23-2024 Albumin [Mass/Vol] 2.8 g/dL Low 3.2-5.0 [facility] Comment on above: Order Comment: Speci men Type: BLOOD SPECIMENOrdering Facility: [facility] Address: [address] [place] [address] Performed By: #### 1 9123-9, 55174-7 ####[facility] LABORATORYCLIA [id number] [place] [address] [place] ALP [Catalytic activity/Vol] 118 U/L High 45-117 [facility] Comment on above: Order Comment: Speci men Type: BLOOD SPECIMENOrdering Facility: [facility] Address: [address] [place] [id number] Performed By: #### 1 9123-9, 15982-5 ####[facility]ORATORYCLIA [id number] [address] [place] ALT [Catalytic activity/Vol] 15 U/L Normal 13-61 [facility] Comment on above: Order Comment: Speci men Type: BLOOD SPECIMENOrdering Facility: [facility] Address: [address] [place] [address] Result Comment: Resu lts may be falsely depressed after the administration of Sulfasalazine and/or Sulfapyridine. Performed By: #### 1 9123-9, 04419-1 ####[facility] LABORATORYCLIA [id number] [place] [address] [place] Anion gap [Moles/Vol] 10 mmol/L Normal 5-16 [facility] Comment on above: Order Comment: Speci men Type: BLOOD SPECIMENOrdering Facility: [facility] Address: [address] [place] [address] Performed By: #### 1 9123-9, 13545-9 ####[facility] LABORATORYCLIA [id number] [place] [address] [place] AST [Catalytic activity/Vol] 14 U/L Normal 8-34 [facility] Comment on above: Order Comment: Florii men Type: BLOOD SPECIMENOrdering Facility: [facility] Address: [address] [place] [address] Result Comment: Resu lts may be falsely depressed after the administration of Sulfasalazine and/or Sulfapyridine. Performed By: #### 1 9123-9, 46472-7 ####[facility]ORATORYCLIA [id number] [place] [address] [place] Bilirubin [Mass/Vol] 0.9 mg/dL Normal 0.2-1.0 [facility] Comment on above: Order Comment: Florii men Type: BLOOD SPECIMENOrdering Facility: [facility] Address: [address] [place] [address] Performed By: #### 1 9123-9, 64867-5 ####[facility] LABORATORYCLIA [id number] [place] [id number] [place] Calcium [Mass/Vol] 9.1 mg/dL Normal 8.5-10.5 [facility] Comment on above: Order Comment: Speci men Type: BLOOD SPECIMENOrdering Facility: [facility] Address: [address] [place] [address] Performed By: #### 1 9123-9, 52650-4 ####[facility] LABORATORYCLIA [id number] [place] [id number] [place] Chloride [Moles/Vol] 98 mmol/L Normal 98-107 [facility] Comment on above: Order Comment: Speci men Type: BLOOD SPECIMENOrdering Facility: [facility] Address: [address] [place] [address] Performed By: #### 1 9123-9, 94843-3 ####[facility]ORATORYCLIA [id number] [place] [address] [place] CO2 [Moles/Vol] 29 mmol/L Normal 21-32 [facility] Comment on above: Order Comment: Speci men Type: BLOOD SPECIMENOrdering Facility: [facility] Address: [address] [place] [address] Performed By: #### 1 9123-9, 31488-3 ####[facility] LABORATORYCLIA [id number] [address] STATES OF [facility] Creatinine [Mass/Vol] 0.90 mg/dL Normal 0.51-0.95 [facility] Comment on above: Order Comment: Speci men Type: BLOOD SPECIMENOrdering Facility: [facility] Address: [address] [place] [address] Result Comment: Marissa ents receiving either N-Acetylcysteine (NAC) or Metamizole prior to venipuncture, may have falsely depressed results. Performed By: #### 1 9123-9, 39621-2 ####[facility]ORATORYCLIA [id number] [address] [place] Creatinine and Glomerular filtration rate.predicted panel (S/P/Bld) 83 mL/min/1.73m??? Normal >=60 [facility] Comment on above: Order Comment: Speci men Type: BLOOD SPECIMENOrdering Facility: [facility] Address: [address] [place] [address] Result Comment: Zeny mated Glomerular Filtration Rate [...] actual GFR. Performed By: #### 1 9123-9, 91045-2 ####[facility] LABORATORYCLIA [id number] [place] [address] [place] Glucose [Mass/Vol] 98 mg/dL Normal 70-100 [facility] Comment on above: Order Comment: Speci men Type: BLOOD SPECIMENOrdering Facility: [facility] Address: [address] [place] [address] Result Comment: The [place] Diabetes Association (ADA) provides guidance for cutoff [...] Standards of Medical Care in Diabetes 2016, [place] [employer]. Diabetes Care. 2016.39(Suppl 1). Results may be falsely elevated after the administration of Sulfapyridine. Results may be falsely depressed after the administration of Sulfasalazine. Performed By: #### 1 9123-9, ####[facility]ORATORYCLIA [id number] [place] [id number] [place] Potassium [Moles/Vol] 3.4 mmol/L Low 3.5-5.1 [facility] Comment on above: Order Comment: Dora finch Type: BLOOD SPECIMENOrdering Facility: [facility] Address: [address] [place] [address] Performed By: #### 1 9123-9, 45698-8 ####[facility] LABORATORYCLIA [id number] [place] [address] [place] Protein [Mass/Vol] 6.9 g/dL Normal 6.0-8.5 [facility] Comment on above: Order Comment: Speci men Type: BLOOD SPECIMENOrdering Facility: [facility] Address: [address] [place] [address] [place] [id number] Performed By: #### 1 9123-9, 81822-1 ####[facility]ORATORYCLIA [id number] [place] [id number] [place] Sodium [Moles/Vol] 137 mmol/L Normal 136-145 [facility] Comment on above: Order Comment: Speci men Type: BLOOD SPECIMENOrdering Facility: [facility] Address: [address] [place], [place] [address] Performed By: #### 1 9123-9, 56324-1 ####[facility]ORATORYCLIA [id number] [place] [address] [place] Urea nitrogen [Mass/Vol] 7 mg/dL Normal 7-26 [facility] Comment on above: Order Comment: Speci men Type: BLOOD SPECIMENOrdering Facility: [facility] Address: [address] [place], [place] [address] Performed By: #### 1 9123-9, 78487-2 ####[facility] LABORATORYCLIA [id number] [place] [id number] [place] Magnesium SerPl-mCncon 10-23 Magnesium [Mass/Vol] 1.9 mg/dL Normal 1.6-2.6 [facility] Comment on above: Order Comment: Speci men Type: BLOOD SPECIMENOrdering Facility: [facility] Address: [address] [place] [address] Performed By: #### 1 9123-9, 74138-6 ####[facility] LABORATORYCLIA [id number] [place] [id number] [place] XR FOOT 3V [...] of osteomyelitis. Mild distal soft tissue swelling. Athletics Director: PSCB Transcribe Date/Time: Oct 23 2024 4:00P Dictated by : HOMA EDMONDSON MD This examination was interpreted and the report reviewed and electronically signed by: HOMA EDMONDSON MD on Oct 23 2024 4:03PM EST [id number] [facility] ALLIED HEALTHon 10-22-2024 ALLIED HEALTH HNO ID: [id number] Author: STEFANY CALVERT RN Service: Wound/Ostomy Author [...] Applied And Attached To Drainage Bag Barrier Counseling Specialist Strips Applied To Edges Patient Educated On Need To Watch Drainage Tubing To Ensure Its Draining And Pouch Doesn't Get Too Full And Starts Leaking. Assessment Stoma Type: End-loop jejunostomy Size/Diameter: 38mm Location: LLQ Protrusion: Flush, Retracted, Etc. Mucosal condition and color: [place] Red Moist Mucocutaneous junction: Intact Character of output: Liquid Yellow Brown Emptying frequency per day: per floor nursing Current pouching system: Coloplast 2pc High Output #90840 Pouch attached to drainage bag Coloplast #65039 Flat Wafer [place] #8815 Small Barrier Ring Wear Time Goal: 3-4 days Coloplast 2pc Colostomy Pouch # 85059 Left In Room When Stool Thickens Too Much To Use High Output Bag. If additional ostomy supplies are needed, please call [employer] ([phone]) for above mentioned supplies. If supplies are unavailable in [employer], please secure chat [facility] or call extension [phone] to request more supplies. Normal [facility] CBC panel Auto (Bld)on 10-22 Erythrocyte distribution width (RBC) [Ratio] 14.6 % Normal 11.5-15.0 [facility] Comment on above: Order Comment: Speci men Type: BLOOD SPECIMEN [facility] Address: [address] [place] [id number] Performed By: #### 4 091-5 #### [facility] CLIA [id number] [address] [place] [address] [place] Hematocrit (Bld) [Volume fraction] 28.0 % Low 36.0-46.0 [facility] Comment on above: Order Comment: Speci men Type: BLOOD SPECIMEN [facility] Address: [address] [place] [address] Performed By: #### 4 091-5 #### [facility] CLIA [id number] [address] [place] [address] [place] Hemoglobin (Bld) [Mass/Vol] 8.8 g/dL Low 11.5-15.5 [facility] Comment on above: Order Comment: Speci men Type: BLOOD SPECIMEN [facility] Address: [address] [place] [address] Performed By: #### 4 091-5 #### [facility] CLIA [id number] [address] [place] [address] MCH (RBC) [Entitic mass] 24.6 pg Low 26.0-34.0 [facility] Comment on above: Order Comment: Speci men Type: BLOOD SPECIMEN [facility] Address: [address] [place] [address] Performed By: #### 4 091-5 #### [facility] CLIA [id number] [address] [place] [address] MCHC (RBC) [Mass/Vol] 31.4 g/dL Normal 30.5-36.0 [facility] Comment on above: Order Comment: Speci men Type: BLOOD SPECIMEN [facility] Address: [address] [place] [address] Performed By: #### 4 091-5 #### [facility] CLIA [id number] [address] [place] [address] [place] MCV (RBC) [Entitic vol] 78.4 fL Low 80.0-100.0 [facility] Comment on above: Order Comment: Speci men Type: BLOOD SPECIMEN [facility] Address: [address] [place] [address] Performed By: #### 4 091-5 #### [facility] CLIA [id number] [address] [place] [address] Nucleated RBC (Bld) [#/Vol] 10*3/uL Normal <0.01 [facility] Comment on above: Order Comment: Speci men Type: BLOOD SPECIMEN [facility] Address: [address] [place] [address] Performed By: #### 4 091-5 #### [facility] CLIA [id number] [address] [place] [address] [place] Platelet mean volume (Bld) [Entitic vol] 8.7 fL Low 9.0-12.7 [facility] Comment on above: Order Comment: Speci men Type: BLOOD SPECIMEN [facility] Address: [address] [place] [address] Performed By: #### 4 091-5 #### [facility] CLIA [id number] [address] [place] [address] [place] Platelets (Bld) [#/Vol] 396 10*3/uL Normal 150-400 [facility] Comment on above: Order Comment: Speci men Type: BLOOD SPECIMEN [facility] Address: [address] [place] [address] Performed By: #### 4 091-5 #### [facility] CLIA [id number] [address] [place] [address] [place] RBC (Bld) [#/Vol] 3.57 10*6/uL Low 3.90-5.20 [facility] Comment on above: Order Comment: Speci men Type: BLOOD SPECIMEN [facility] Address: [address] [place] [address] Performed By: #### 4 091-5 #### [facility] CLIA [id number] [address] [place] [address] [place] WBC (Bld) [#/Vol] 5.87 10*3/uL Normal 3.70-11.00 [facility] Comment on above: Order Comment: Speci men Type: BLOOD SPECIMEN [facility] Address: [address] [place] [address] Performed By: #### 4 091-5 #### [facility] CLIA [id number] [address] [place] [address] OF [facility] CONSULT PROGon 10-22-2024 CONSULT PROG HNO ID: [id number] Author: TUNG JENNINGS MD Service: Gastroenterology Author [...] medical decision making from today, 10/22.) Normal [facility] Comprehensive metabolic 2000 panelon 10-22-2024 Albumin [Mass/Vol] 2.6 g/dL Low 3.2-5.0 [facility] Comment on above: Order Comment: Speci men Type: BLOOD SPECIMEN [facility] Address: [address] [place] [address] Performed By: #### 4 091-5 #### [facility] CLIA [id number] [address] [place] [address] [place] ALP [Catalytic activity/Vol] 110 U/L Normal 45-117 [facility] Comment on above: Order Comment: Speci men Type: BLOOD SPECIMEN [facility] Address: [address] [place] [address] Performed By: #### 4 091-5 #### [facility] CLIA [id number] [address] [place] [address] [place] ALT [Catalytic activity/Vol] 15 U/L Normal 13-61 [facility] Comment on above: Order Comment: Speci men Type: BLOOD SPECIMEN [facility] Address: [address] [place] [address] Result Comment: Resu lts may be falsely depressed after the administration of Sulfasalazine and/or Sulfapyridine. Performed By: #### 4 091-5 #### [facility] CLIA [id number] [address] [place] [address] [place] Anion gap [Moles/Vol] 8 mmol/L Normal 5-16 [facility] Comment on above: Order Comment: Speci men Type: BLOOD SPECIMEN [facility] Address: [address] [place] [address] Performed By: #### 4 091-5 #### [facility] CLIA [id number] [address] [place] [address] [place] AST [Catalytic activity/Vol] 14 U/L Normal 8-34 [facility] Comment on above: Order Comment: Speci men Type: BLOOD SPECIMEN [facility] Address: [address] [place] [address] Result Comment: Resu lts may be falsely depressed after the administration of Sulfasalazine and/or Sulfapyridine. Performed By: #### 4 091-5 #### [facility] CLIA [id number] [address] [place] [address] [place] Bilirubin [Mass/Vol] 0.9 mg/dL Normal 0.2-1.0 [facility] Comment on above: Order Comment: Speci men Type: BLOOD SPECIMEN [facility] Address: [address] [place] [address] Performed By: #### 4 091-5 #### [facility] CLIA [id number] [address] [place] [address] [place] Calcium [Mass/Vol] 8.9 mg/dL Normal 8.5-10.5 [facility] Comment on above: Order Comment: Speci men Type: BLOOD SPECIMEN [facility] Address: [address] [place] [address] Performed By: #### 4 091-5 #### [facility] CLIA [id number] [address] [place] [address] [place] Chloride [Moles/Vol] 98 mmol/L Normal 98-107 [facility] Comment on above: Order Comment: Speci men Type: BLOOD SPECIMEN [facility] Address: [address] [place] [address] Performed By: #### 4 091-5 #### [facility] CLIA [id number] [address] [place] [address] [place] CO2 [Moles/Vol] 30 mmol/L Normal 21-32 [facility] Comment on above: Order Comment: Speci men Type: BLOOD SPECIMEN [facility] Address: [address] [place] [address] Performed By: #### 4 091-5 #### [facility] CLIA [id number] [address] [place] [address] [place] Creatinine [Mass/Vol] 0.95 mg/dL Normal 0.51-0.95 [facility] Comment on above: Order Comment: Dora finch Type: BLOOD SPECIMEN [facility] Address: [address] [place] [address] Result Comment: Marissa ents receiving either N-Acetylcysteine (NAC) or Metamizole prior to venipuncture, may have falsely depressed results. Performed By: #### 4 091-5 #### [facility] CLIA [id number] [address] [place] [address] [facility] [place] Creatinine and Glomerular filtration rate.predicted panel (S/P/Bld) 77 mL/min/1.73m??? Normal >=60 [facility] Comment on above: Order Comment: Dora finch Type: BLOOD SPECIMEN [facility] Address: [address] [place] [address] Result Comment: Zeny mated Glomerular Filtration Rate [...] GFR. Performed By: #### 4 091-5 #### [facility] CLIA [id number] [address] [place] [address] [place] Glucose [Mass/Vol] 83 mg/dL Normal 70-100 [facility] Comment on above: Order Comment: Dora finch Type: BLOOD SPECIMEN [facility] Address: [address] [place] [address] Result Comment: The [place] Diabetes Association (ADA) provides guidance for cutoff [...] Standards of Medical Care in Diabetes 2016, [place] [employer]. Diabetes Care. 2016.39(Suppl 1). Results may be falsely elevated after the administration of Sulfapyridine. Results may be falsely depressed after the administration of Sulfasalazine. Performed By: #### 4 091-5 #### [facility] CLIA [id number] [address] [place] [address] [place] Potassium [Moles/Vol] 3.2 mmol/L Low 3.5-5.1 [facility] Comment on above: Order Comment: Dora finch Type: BLOOD SPECIMEN [facility] Address: [address] [place] [address] Performed By: #### 4 091-5 #### [facility] CLIA [id number] [address] [place] [address] [place] Protein [Mass/Vol] 6.4 g/dL Normal 6.0-8.5 [facility] Comment on above: Order Comment: Dora finch Type: BLOOD SPECIMEN [facility] Address: [address] [place] [address] Performed By: #### 4 091-5 #### [facility] CLIA [id number] [address] [place] [address] [place] Sodium [Moles/Vol] 136 mmol/L Normal 136-145 [facility] Comment on above: Order Comment: Dora finch Type: BLOOD SPECIMEN Order[facility]: [facility] Address: [address] [place] [address] Performed By: #### 4 091-5 #### [facility] CLIA [id number] [address] [place] [address] [place] Urea nitrogen [Mass/Vol] 9 mg/dL Normal 7-26 [facility] Comment on above: Order Comment: Dora finch Type: BLOOD SPECIMEN [facility]: [facility] Address: [address] [place] [address] Performed By: #### 4 091-5 #### [facility] CLIA [id number] [address] [place] [address] [place] Gastrointestinal pathogens p bowen LAUREANO+probe (Stl)on 10-22-2024 ADENOVIRUS F 40/41 DNA Not detected Normal Not Detected [facility] Comment on above: Order Comment: Speci men Type: STOOL SPECIMENOrdering Facility: [facility] Address: [address] [place] [address] Performed By: #### 7 9381-0 ####[facility]ATORYCLIA [id number] [place] [address] [place] ASTROVIRUS RNA Not detected Normal Not Detected [facility] Comment on above: Order Comment: Speci men Type: STOOL SPECIMENOrdering Facility: [facility] Address: [address] [place] [address] Performed By: #### 7 9381-0 ####[facility] LABORATORYCLIA [id number] [place] [address] [place] C. cayetanensis DNA LAUREANO+probe Ql (Unsp spec) Not detected Normal Not Detected [facility] Comment on above: Order Comment: Speci men Type: STOOL SPECIMENOrdering Facility: [facility] [facility] Address: [address] [place] [address] Performed By: #### 7 9381-0 ####[facility]ATORYCLIA [id number] [place] [address] [place] Campylobacter sp DNA.diarrheagenic LAUREANO+probe Ql (Stl) Not detected Normal Not Detected [facility] Comment on above: Order Comment: Speci men Type: STOOL SPECIMENOrdering Facility: [facility] Address: [address] [place] [address] Performed By: #### 7 9381-0 ####[facility]ORATORYCLIA [id number] [place] [address] [place] Cryptosporidium sp DNA LAUREANO+probe Ql (Unsp spec) Not detected Normal Not Detected [facility] Comment on above: Order Comment: Speci men Type: STOOL SPECIMENOrdering Facility: [facility] Address: [address] [place] [address] Performed By: #### 7 9381-0 ####[facility]ORATORYCLIA [id number] [address] E. coli O157:H7 DNA LAUREANO+probe Ql (Unsp spec) Not applicable Normal Not detected [facility] Comment on above: Order Comment: Speci men Type: STOOL SPECIMENOrdering Facility: [facility] Address: [address] [place] [address] Performed By: #### 7 9381-0 ####[facility]ATORYCLIA [id number] [address] E. coli stx1+stx2 genes LAUREANO+probe Ql (Stl) Not detected Normal Not Detected [facility] Comment on above: Order Comment: Speci men Type: STOOL SPECIMENOrdering Facility: [facility] Address: [address] [place] [address] Performed By: #### 7 9381-0 ####[facility]ORATORYCLIA [id number] [address] E. histolytica DNA LAUREANO+probe Ql (Unsp spec) Not detected Normal Not Detected [facility] Comment on above: Order Comment: Speci men Type: STOOL SPECIMENOrdering Facility: [facility] Address: [address] [place] [address] Performed By: #### 7 9381-0 ####[facility]ORATORYCLIA [id number] [address] ENTEROAGGREGATIVE E. COLI (EAEC) DNA Not detected Normal Not Detected [facility] Comment on above: Order Comment: Speci men Type: STOOL SPECIMENOrdering Facility: [facility] Address: [address] [place] [address] Performed By: #### 7 9381-0 ####[facility]ATORYCLIA [id number] [address] [place] ENTEROPATHOGENIC E. COLI (EPEC) DNA Not detected Normal Not detected [facility] Comment on above: Order Comment: Speci men Type: STOOL SPECIMENOrdering Facility: [facility] Address: [address] [place] [address] Performed By: #### 7 9381-0 ####[facility]ORATORYCLIA [id number] [place] [address] [place] ENTEROTOXIGENIC E. COLI (ETEC) DNA Not detected Normal Not Detected [facility] Comment on above: Order Comment: Speci men Type: STOOL SPECIMENOrdering Facility: [facility] Address: [address] [place] [address] Performed By: #### 7 9381-0 ####[facility]ATORYCLIA [id number] [place] [address] [place] G. lamblia DNA LAUREANO+probe Ql (Unsp spec) Not detected Normal Not Detected [facility] Comment on above: Order Comment: Speci men Type: STOOL SPECIMENOrdering Facility: [facility] Address: [address] [place] [address] Performed By: #### 7 9381-0 ####[facility]ATORYCLIA [id number] [place] [address] [place] NOROVIRUS GI/GII RNA Not detected Normal Not Detected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 feeling lightheaded she has been passing out and they may give her IV fluids it is a care home and it has not been working.). Principal Diagnosis Dizziness. Syncope. Renal insufficiency. questioning dumping syndrome. ICD-10 Codes R55: Syncope and collapse R42: Dizziness and giddiness N28.9: Disorder of kidney and ureter, unspecified 2 of 2 Normal [facility] ED VISIT SUMMARYon ED VISIT SUMMARY Visit Overview Visit Overview [place] [address] [facility] [place] [address] [id number] 10/19/2024 Patient: DALY EVANS Sex: Female : [...] She denies any syncopal episodes. ) ALLERGIES [place] HOME MEDICATIONS acetaminophen 325 mg chewable tablet: 1 tablet every six hours . Visit Overview aspirin 81 mg chewable tablet: 1 tablet once a day . atorvastatin 40 mg tablet: 1 tablet once a day . enoxaparin 100 mg/mL subcutaneous syringe: twice a day . (give per [place] MAR dose of 0.95ml) escitalopram 20 mg [...] RENAL INSUFFICIENCY SYNCOPE 4 of 4 Normal [facility] ED VITALS FLOW SHEETon 10-20 ED VITALS FLOW SHEET Vitals Vital Sign Flow Sheet [address] [address] [id number] 10/19/2024 Patient: DALY EVANS Sex: Female : [...] 98.1 F 0 1 of 1 Normal [facility] Magnesium SerPl-mCncon 10-20 Magnesium [Mass/Vol] 1.7 mg/dL Normal 1.6-2.6 [facility] Comment on above: Order Comment: Speci men Type: BLOOD SPECIMEN Ordering Facility: [facility] Address: [address] [place] [address] Performed By: #### 4 5066-8 #### [facility] CLIA [id number] [address] [place] [address] [place] NUTRITIONon 10-20-2024 NUTRITION HNO ID: [id number] Author: MOUNIKA SARABIA RD Service: ? Author [...] needs: 1849 - 2049 Calorie Calculation Method: [place]-St. Jeor (with activity factor) Estimated protein needs [...] October 20, 2024 TIME: 2:59 PM Normal [facility] TSH SerPl-aCncon 10-20-2024 TSH Qn 2.798 m[IU]/L Normal 0.358-3.740 [facility] Comment on above: Order Comment: Speci men Type: BLOOD SPECIMEN Ordering Facility: [facility] Address: [address] [place] [address] Result Comment: 3rd generation ultra sensitive TSH. Performed By: #### 4 5066-8 #### [facility] CLIA [id number] [facility] [place] [address] [place] BMP with eGFRon 10-19-2024 AGE 39 years Normal [facility] Comment on above: Performed By: #### 2 73786 #### [facility],[address] [place] [address] Anion gap [Moles/Vol] 17 mmol/L Normal 10 - 20 [facility] Comment on above: Performed By: #### 2 47976 #### [facility],[address] [place] [address] 6[address] BMP with eGFR Normal [facility] Comment on above: Result Comment: BASI C METABOLIC PANEL Performed By: #### 2 39486 #### [facility],[address] [place] [address] Calcium [Mass/Vol] 9.8 mg/dL Normal 8.5 - 10.1 [facility] Comment on above: Result Comment: CALC IUM REPEATED Performed By: #### 2 17361 #### [facility],[address] [place] [address] 07739 Chloride [Moles/Vol] 97 mmol/L Low 98 - 107 [facility] Comment on above: Performed By: #### 2 88511 #### [facility],[address] [place] [address] 66583 CO2 [Moles/Vol] 23.4 mmol/L Normal 21.0 - 32.0 [facility] Comment on above: Performed By: #### 2 01065 #### [facility],[address] [place] [address] 69064 Creatinine [Mass/Vol] 1.44 mg/dL High 0.55 - 1.02 [facility] Comment on above: Performed By: #### 2 24122 #### [facility],[address] [place] [address] 73506 eGFR 40 ML/MINUTE Low 60 - 999 [facility] Comment on above: Performed By: #### 2 88748 #### [facility],[address] [place] [address] 69012 eGFR(AA) 49 ML/MINUTE Low 60 - 999 [facility] Comment on above: Result Comment: ACCO RDING TO THE NATIONAL KIDNEY DISEASE EDUCATION PROGRAM(NKDE), A NORMAL eGFR IS A VALUE GREATER THAN OR EQUAL TO 60 ML/MIN/1.73 SQ METERS. CHRONIC KIDNEY DISEASE: <60mL/MIN/1.73 SQ METERS KIDNEY FAILURE: <15mL/MIN/1.73 SQ METERS THIS TEST SHOULD ONLY BE USED FOR PATIENTS 18 YEARS OF AGE AND OLDER. Performed By: #### 2 31046 #### [facility],[address] [place] [address] 21920 Glucose [Mass/Vol] 108 mg/dL High 74 - 106 [facility] Comment on above: Performed By: #### 2 84687 #### [facility],[address] [place], [place] [id number] Potassium [Moles/Vol] 3.0 mmol/L Low 3.5 - 5.1 [facility] Comment on above: Performed By: #### 2 08553 #### [facility],[address] [place] [address] Sodium [Moles/Vol] 134 mmol/L Low 136 - 145 [facility] Comment on above: Performed By: #### 2 95016 #### [place] [address] Urea nitrogen [Mass/Vol] 19 mg/dL High 7 - 18 [facility] Comment on above: Performed By: #### 2 58950 #### [facility],[address] [place], [place] [address] CBC + DIFFon 10-19-2024 Baso # 0.07 x10EE3/UL Normal 0.00 - 0.10 [facility] Comment on above: Performed By: #### 2 88695 ####[facility],[address] [place] [address] 65566 Basophils/100 WBC (Bld) 0.6 % Normal 0.0 - 2.0 [facility] Comment on above: Performed By: #### 2 43639 ####[facility],[address] [place] [address] 53738 CBC + DIFF Normal [facility] Comment on above: Result Comment: CBC- COMPLETE BLOOD COUNT Performed By: #### 2 73800 ####[facility],[address] [place], [place] [id number] EO # 0.06 x10EE3/UL Normal 0.00 - 0.50 [facility] Comment on above: Performed By: #### 2 34140 ####[facility],[address] [place], [place] [address] Eosinophils/100 WBC (Bld) 0.5 % Normal 0.0 - 7.0 [facility] Comment on above: Performed By: #### 2 50589 ####[facility],[address] [place] [address] Erythrocyte distribution width (RBC) [Ratio] 16.3 % High 12.0 - 15.6 [facility] Comment on above: Performed By: #### 2 47522 ####[facility],[address] [place] [address] Hematocrit (Bld) [Volume fraction] 38.0 % Normal 34.0 - 46.0 [facility] Comment on above: Performed By: #### 2 58589 ####[facility],[address] [place] [address] Hemoglobin (Bld) [Mass/Vol] 12.6 g/dL Normal 12.0 - 16.0 [facility] Comment on above: Performed By: #### 2 48482 ####[facility],[address] [place] [address] 07022 Lymph # 2.40 x10EE3/UL Normal 0.80 - 2.80 [facility] Comment on above: Performed By: #### 2 05675 ####[facility],[address] [place], [place] [phone] Lymphocytes/100 WBC (Bld) 20.0 % Normal 20.0 - 45.0 [facility] Comment on above: Performed By: #### 2 15388 ####[facility],[address] [place] [address] MANUAL DIFF N/A Normal [facility] Comment on above: Performed By: #### 2 52191 ####[facility],[address] [place] [address] MCH (RBC) [Entitic mass] 25 pg Low 27 - 33 [facility] Comment on above: Performed By: #### 2 03591 ####[facility],[address] [place] [address] MCHC 33 X10 3 Normal 32 - 36 [facility] Comment on above: Performed By: #### 2 59405 ####[facility],[address] [place] [address] MCV (RBC) [Entitic vol] 74 fL Low 80 - 99 [facility] Comment on above: Performed By: #### 2 20577 ####[facility],[address] [place] [address] [place] # 0.86 x10EE3/UL Normal 0.20 - 1.00 [facility] Comment on above: Performed By: #### 2 65323 ####[facility],[address] [place] [address] MONOS % 7.2 % Normal 0.0 - 10.0 [facility] Comment on above: Performed By: #### 2 26192 ####[facility],[address] [place] [address] Morphology Stan (Bld) [Interp] SEE BELOW Normal [facility] Comment on above: Performed By: #### 2 50425 ####[facility],[address] [place] [address] Neut # 8.62 x10EE3/UL High 1.50 - 7.10 [facility] Comment on above: Performed By: #### 2 03292 ####[facility],[address] [place] [address] Neutrophils/100 WBC (Bld) 71.8 % Normal 46.0 - 76.0 [facility] Comment on above: Performed By: #### 2 49435 ####[facility],[address] [place] [address] 70996 PLATELET 804 x10EE3/UL High 150 - 450 [facility] Comment on above: Performed By: #### 2 67012 ####[facility],[address] [place] [address] 84455 Platelet mean volume (Bld) [Entitic vol] 7.9 fL Normal 6.6 - 10.5 [facility] Comment on above: Result Comment: AUTO MATED DIFFERENTIAL Performed By: #### 2 85386 ####[facility],[address] [place] [address] 59315 PLT EST INCREASED Normal [facility] Comment on above: Performed By: #### 2 36184 ####[facility],[address] [place] [address] 64861 RBC 5.12 x 10EE6/UL Normal 4.10 - 5.30 [facility] Comment on above: Performed By: #### 2 29819 ####[facility],[address] [place] [address] 24793 WBC 12.0 x 10EE3/UL High 4.5 - 10.8 [facility] Comment on above: Performed By: #### 2 98167 ####[facility],[address] [place] [address] 11929 CMP with eGFRon 10-19-2024 AGE 39 years Normal [facility] Comment on above: Performed By: #### 2 94423 ####[facility],[address] [place] [address] 15817 Albumin [Mass/Vol] 3.5 g/dL Normal 3.4 - 5.0 [facility] Comment on above: Performed By: #### 2 47529 ####[facility],[address] [place] [address] 77486 Albumin/Globulin [Mass ratio] 0.6 {ratio} Low 0.9 - 1.6 [facility] Comment on above: Performed By: #### 2 46535 ####[facility],[address] [place] [address] 15612 ALK PHOS 170 U/L High 46 - 116 [facility] Comment on above: Performed By: #### 2 91904 ####[facility],[address] [place] [address] 28051 ALT [Catalytic activity/Vol] 37 U/L Normal 16 - 63 [facility] Comment on above: Performed By: #### 2 53971 ####[facility],[address] [place] [address] 85467 Anion gap [Moles/Vol] 17 mmol/L Normal 10 - 20 [facility] Comment on above: Performed By: #### 2 46094 ####[facility],[address] [place] [address] 90765 AST [Catalytic activity/Vol] 30 U/L Normal 13 - 39 [facility] Comment on above: Performed By: #### 2 25000 ####[facility],[address] [place] [address] 16395 B/C RATIO 10 ratio Normal 0 - 30 [facility] Comment on above: Performed By: #### 2 85446 ####[facility],[address] [place] [address] 70496 Bilirubin [Mass/Vol] 1.1 mg/dL High 0.2 - 1.0 [facility] Comment on above: Performed By: #### 2 96962 ####[facility],[address] [place] [address] 31622 Calcium [Mass/Vol] 9.7 mg/dL Normal 8.5 - 10.1 [facility] Comment on above: Performed By: #### 2 57575 ####[facility],[address] [place] [address] 51350 Chloride [Moles/Vol] 92 mmol/L Low 98 - 107 [facility] Comment on above: Performed By: #### 2 96729 ####[facility],[address] [place] [address] 89360 CMP with eGFR Normal [facility] Comment on above: Result Comment: COMP REHENSIVE METABOLIC PANEL Performed By: #### 2 87275 ####[facility],[address] [place] [address] 89740 CO2 [Moles/Vol] 24.6 mmol/L Normal 21.0 - 32.0 [facility] Comment on above: Performed By: #### 2 14572 ####[facility],[address] [place] [address] 48813 Creatinine [Mass/Vol] 2.18 mg/dL High 0.55 - 1.02 [facility] Comment on above: Performed By: #### 2 68709 ####[facility],[address] [place] [address] 37635 eGFR 25 ML/MINUTE Low 60 - 999 [facility] Comment on above: Performed By: #### 2 88200 ####[facility],[address] [place] [address] 96720 eGFR(AA) 30 ML/MINUTE Low 60 - 999 [facility] Comment on above: Result Comment: ACCO RDING TO THE NATIONAL KIDNEY DISEASE EDUCATION PROGRAM(NKDE), A NORMAL eGFR IS A VALUE GREATER THAN OR EQUAL TO 60 ML/MIN/1.73 SQ METERS. CHRONIC KIDNEY DISEASE: <60mL/MIN/1.73 SQ METERS KIDNEY FAILURE: <15mL/MIN/1.73 SQ METERS THIS TEST SHOULD ONLY BE USED FOR PATIENTS 18 YEARS OF AGE AND OLDER. Performed By: #### 2 28411 ####[facility],[address] [place] [address] 82698 Globulin (S) [Mass/Vol] 6.0 g/dL High 1.5 - 3.8 [facility] Comment on above: Performed By: #### 2 81322 ####[facility],[address] [place] [address] 18659 Glucose [Mass/Vol] 146 mg/dL High 74 - 106 [facility] Comment on above: Performed By: #### 2 27189 ####[facility],[address] [place] [address] 86335 Potassium [Moles/Vol] 3.3 mmol/L Low 3.5 - 5.1 [facility] Comment on above: Performed By: #### 2 87632 ####[facility],[address] [place] [address] 40992 Protein [Mass/Vol] 9.5 g/dL High 6.4 - 8.2 [facility] Comment on above: Performed By: #### 2 26817 ####[facility],[address] [place] [address] 77699 Sodium [Moles/Vol] 130 mmol/L Low 136 - 145 [facility] Comment on above: Performed By: #### 2 35225 ####[facility],[address] [place] [address] 92538 Urea nitrogen [Mass/Vol] 21 mg/dL High 7 - 18 [facility] Comment on above: Performed By: #### 2 52953 ####[facility],[address] [place] [address] 98369 HISTORY PHYSICALon HISTORY PHYSICAL HNO ID: [id number] Author: MICHAEL ELLIS MD Service: Hospital Medicine Author Type: Physician Type: H&P Filed: 10/19/2024 23:29 Note Text: HISTORY AND PHYSICAL EXAMINATION PATIENT NAME: Daly Evans SERVICE DATE AND TIME: 10/19/2024 11:22 PM PRIMARY CARE PHYSICIAN: Fredrick Boland DO CHIEF COMPLAINT: Persistent stools since having ileostomy placed at [facility] HPI: The patient is a 39-year-old female [...] jejunostomy and closure open abdomen 08/22/2024 at [facility] during that stay developed a DVT and was placed on Lovenox, presently in a group home facility who continues to have frequent recurring diarrhea. She was on TPN through a PICC line until 2 weeks ago. Due to her persistent diarrhea she was sent to the outside ER. The outside ER contacted her surgeon at the [facility] who felt patient could safely be admitted [...] Patient quit (more content not included)... Normal [facility] MAGNESIUMon 10-19-2024 Magnesium [Mass/Vol] 1.9 mg/dL Normal 1.8 - 2.4 [facility] Comment on above: Performed By: #### 2 77346 #### [facility],[address] [place] [address] TROPONINon 10-19-2024 HS TROPONIN 4.1 pg/mL Normal 0.0 - 51.4 [facility] Comment on above: Performed By: #### 2 42297 #### [facility],[address] [place] [address] BMP with eGFRon 10-16-2024 AGE 39 years Normal [facility] Comment on above: Performed By: #### 2 27863 #### [facility],[address] [place] [address] 34938 Anion gap [Moles/Vol] 14 mmol/L Normal 10 - 20 [facility] Comment on above: Performed By: #### 2 73232 #### [facility],[address] [place] [address] 66362 BMP with eGFR Normal [facility] Comment on above: Result Comment: BASI C METABOLIC PANEL Performed By: #### 2 55176 #### [facility],[address] [place] [address] 83719 Calcium [Mass/Vol] 8.7 mg/dL Normal 8.5 - 10.1 [facility] Comment on above: Performed By: #### 2 76157 #### [facility],[address] [place] [address] 66026 Chloride [Moles/Vol] 99 mmol/L Normal 98 - 107 [facility] Comment on above: Performed By: #### 2 77062 #### [facility],[address] [place] [address] 07581 CO2 [Moles/Vol] 24.5 mmol/L Normal 21.0 - 32.0 [facility] Comment on above: Performed By: #### 2 79105 #### [facility],[address] [place] [address] 49267 Creatinine [Mass/Vol] 1.16 mg/dL High 0.55 - 1.02 [facility] Comment on above: Performed By: #### 2 80301 #### [facility],[address] [place] [address] 68808 eGFR 51 ML/MINUTE Low 60 - 999 [facility] Comment on above: Performed By: #### 2 35504 #### [facility],[address] [place] [address] 21842 GFR/1.73 sq M.predicted among non-blacks MDRD (S/P/Bld) [Vol rate/Area] mL/min/{1.73_m2} Normal 60 - 999 [facility] Comment on above: Result Comment: ACCO RDING TO THE NATIONAL KIDNEY DISEASE EDUCATION PROGRAM(NKDE), A NORMAL eGFR IS A VALUE GREATER THAN OR EQUAL TO 60 ML/MIN/1.73 SQ METERS. CHRONIC KIDNEY DISEASE: <60mL/MIN/1.73 SQ METERS KIDNEY FAILURE: <15mL/MIN/1.73 SQ METERS THIS TEST SHOULD ONLY BE USED FOR PATIENTS 18 YEARS OF AGE AND OLDER. Performed By: #### 2 52692 #### [facility],[address] [place] [address] 13630 Glucose [Mass/Vol] 97 mg/dL Normal 74 - 106 [facility] Comment on above: Performed By: #### 2 29494 #### [facility],[address] [place] [address] 71133 Potassium [Moles/Vol] 3.2 mmol/L Low 3.5 - 5.1 [facility] Comment on above: Performed By: #### 2 52073 #### [facility],[address] [place] [address] 19016 Sodium [Moles/Vol] 134 mmol/L Low 136 - 145 [facility] Comment on above: Performed By: #### 2 64057 #### [facility],[address] [place] [address] 20221 Urea nitrogen [Mass/Vol] 22 mg/dL High 7 - 18 [facility] Comment on above: Performed By: #### 2 53178 #### [facility],[address] [place] [address] 27295 CBC + DIFFon 10-16-2024 Baso # 0.02 x10EE3/UL Normal 0.00 - 0.10 [facility] Comment on above: Performed By: #### 2 87091 #### [facility],[address] [place] [address] 53753 Basophils/100 WBC (Bld) 0.4 % Normal 0.0 - 2.0 [facility] Comment on above: Performed By: #### 2 85476 #### [facility],[address] [place] [address] 97473 CBC + DIFF Normal [facility] Comment on above: Result Comment: CBC- COMPLETE BLOOD COUNT Performed By: #### 2 09741 #### [facility],[address] [place] [address] 51250 EO # 0.15 x10EE3/UL Normal 0.00 - 0.50 [facility] Comment on above: Performed By: #### 2 32208 #### [facility],[address] [place] [address] 29872 Eosinophils/100 WBC (Bld) 2.3 % Normal 0.0 - 7.0 [facility] Comment on above: Performed By: #### 2 58907 #### [place] [address] Erythrocyte distribution width (RBC) [Ratio] 16.1 % High 12.0 - 15.6 [facility] Comment on above: Performed By: #### 2 79654 #### [facility],[address] [place], [place] [address] Hematocrit (Bld) [Volume fraction] 31.0 % Low 34.0 - 46.0 [facility] Comment on above: Performed By: #### 2 66826 #### [facility],[address] [place] [address] 00500 Hemoglobin (Bld) [Mass/Vol] 10.3 g/dL Low 12.0 - 16.0 [facility] Comment on above: Performed By: #### 2 24345 #### [address] [address] Lymph # 2.20 x10EE3/UL Normal 0.80 - 2.80 [facility] Comment on above: Performed By: #### 2 79534 #### [facility],[address] [place] [address] 97508 Lymphocytes/100 WBC (Bld) 33.9 % Normal 20.0 - 45.0 [facility] Comment on above: Performed By: #### 2 02952 #### [facility],[address] [place] [address] MANUAL DIFF N/A Normal [facility] Comment on above: Performed By: #### 2 14521 #### [facility],[address] [place] [address] MCH (RBC) [Entitic mass] 24 pg Low 27 - 33 [facility] Comment on above: Performed By: #### 2 29553 #### [facility],[address] [place] [address] MCHC 33 X10 3 Normal 32 - 36 [facility] Comment on above: Performed By: #### 2 97456 #### [facility],[address] [place] [address] MCV (RBC) [Entitic vol] 73 fL Low 80 - 99 [facility] Comment on above: Performed By: #### 2 17178 #### [facility],[address] [place] [address] [place] # 0.66 x10EE3/UL Normal 0.20 - 1.00 [facility] Comment on above: Performed By: #### 2 70586 #### [facility],[address] [place] [address] MONOS % 10.2 % High 0.0 - 10.0 [facility] Comment on above: Performed By: #### 2 37584 #### [facility],[address] [place], [place] [address] Morphology Stan (Bld) [Interp] N/A Normal [facility] Comment on above: Performed By: #### 2 16765 #### [facility],[address] [place] [address] Neut # 3.46 x10EE3/UL Normal 1.50 - 7.10 [facility] Comment on above: Performed By: #### 2 35492 #### [facility],[address] [place] [address] 36296 Neutrophils/100 WBC (Bld) 53.3 % Normal 46.0 - 76.0 [facility] Comment on above: Performed By: #### 2 63888 #### [facility],[address] [place] [address] 64199 PLATELET 516 x10EE3/UL High 150 - 450 [facility] Comment on above: Performed By: #### 2 53297 #### [facility],[address] [place] [address] 62300 Platelet mean volume (Bld) [Entitic vol] 7.2 fL Normal 6.6 - 10.5 [facility] Comment on above: Result Comment: AUTO MATED DIFFERENTIAL Performed By: #### 2 46369 #### [facility],[address] [place] [address] 48660 RBC 4.23 x 10EE6/UL Normal 4.10 - 5.30 [facility] Comment on above: Performed By: #### 2 00773 #### [facility],[address] [place] [address] 55713 WBC 6.5 x 10EE3/UL Normal 4.5 - 10.8 [facility] Comment on above: Performed By: #### 2 47680 #### [facility],[address] [place] [address] 61584 CBC + DIFFon 10-15-2024 Baso # 0.04 x10EE3/UL Normal 0.00 - 0.10 [facility] Comment on above: Performed By: #### 2 81359 #### [facility],[address] [place] [address] 04120 Basophils/100 WBC (Bld) 0.5 % Normal 0.0 - 2.0 [facility] Comment on above: Performed By: #### 2 70480 #### [facility],[address] [place] [address] 78275 CBC + DIFF Normal [facility] Comment on above: Result Comment: CBC- COMPLETE BLOOD COUNT Performed By: #### 2 99388 #### [facility],[address] [place] [address] 40516 EO # 0.15 x10EE3/UL Normal 0.00 - 0.50 [facility] Comment on above: Performed By: #### 2 68358 #### [facility],[address] [place] [address] 30509 Eosinophils/100 WBC (Bld) 1.9 % Normal 0.0 - 7.0 [facility] Comment on above: Performed By: #### 2 74557 #### [address] [address] Erythrocyte distribution width (RBC) [Ratio] 16.6 % High 12.0 - 15.6 [facility] Comment on above: Performed By: #### 2 32041 #### [facility],[address] [place] [address] 65514 Hematocrit (Bld) [Volume fraction] 36.9 % Normal 34.0 - 46.0 [facility] Comment on above: Performed By: #### 2 09940 #### [facility],[address] [place] [address] 59871 Hemoglobin (Bld) [Mass/Vol] 12.3 g/dL Normal 12.0 - 16.0 [facility] Comment on above: Result Comment: TEST REPEATED Performed By: #### 2 52976 #### [address] [address] Lymph # 2.93 x10EE3/UL High 0.80 - 2.80 [facility] Comment on above: Performed By: #### 2 63479 #### [facility],[address] [place] [address] 50775 Lymphocytes/100 WBC (Bld) 37.1 % Normal 20.0 - 45.0 [facility] Comment on above: Performed By: #### 2 48836 #### [facility],[address] [place] [address] MANUAL DIFF N/A Normal [facility] Comment on above: Performed By: #### 2 94092 #### [facility],[address] [place] [address] MCH (RBC) [Entitic mass] 25 pg Low 27 - 33 [facility] Comment on above: Performed By: #### 2 80942 #### [place] [address] MCHC 33 X10 3 Normal 32 - 36 [facility] Comment on above: Performed By: #### 2 56364 #### [facility],[address] [place] [address] MCV (RBC) [Entitic vol] 75 fL Low 80 - 99 [facility] Comment on above: Performed By: #### 2 03210 #### [facility],[address] [place] [address] [place] # 0.58 x10EE3/UL Normal 0.20 - 1.00 [facility] Comment on above: Performed By: #### 2 43797 #### [facility],[address] [place] [address] MONOS % 7.3 % Normal 0.0 - 10.0 [facility] Comment on above: Performed By: #### 2 84250 #### [facility],[address] [place] [address] Morphology Stan (Bld) [Interp] N/A Normal [facility] Comment on above: Performed By: #### 2 05783 #### [place] [address] Neut # 4.21 x10EE3/UL Normal 1.50 - 7.10 [facility] Comment on above: Performed By: #### 2 68369 #### [facility],[address] [place] [address] 32184 Neutrophils/100 WBC (Bld) 53.3 % Normal 46.0 - 76.0 [facility] Comment on above: Performed By: #### 2 39458 #### [facility],[address] [place] [address] 76066 PLATELET 562 x10EE3/UL High 150 - 450 [facility] Comment on above: Performed By: #### 2 38457 #### [facility],[address] [place] [address] 80925 Platelet mean volume (Bld) [Entitic vol] 8.2 fL Normal 6.6 - 10.5 [facility] Comment on above: Result Comment: AUTO MATED DIFFERENTIAL Performed By: #### 2 16893 #### [facility],[address] [place] [address] 23862 RBC 4.92 x 10EE6/UL Normal 4.10 - 5.30 [facility] Comment on above: Performed By: #### 2 60401 #### [facility],[address] [place] [address] 01640 WBC 7.9 x 10EE3/UL Normal 4.5 - 10.8 [facility] Comment on above: Performed By: #### 2 22934 #### [facility],[address] [place] [address] 11176 CMP with eGFRon 10-15-2024 AGE 39 years Normal [facility] Comment on above: Performed By: #### 2 06563 #### [facility],[address] [place] [address] 04226 Albumin [Mass/Vol] 2.9 g/dL Low 3.4 - 5.0 [facility] Comment on above: Performed By: #### 2 64754 #### [facility],[address] [place] [address] 09901 Albumin/Globulin [Mass ratio] 0.5 {ratio} Low 0.9 - 1.6 [facility] Comment on above: Performed By: #### 2 09176 #### [facility],[address] [place] [address] 37711 ALK PHOS 151 U/L High 46 - 116 [facility] Comment on above: Performed By: #### 2 58452 #### [facility],[address] [place] [address] 47733 ALT [Catalytic activity/Vol] 45 U/L Normal 16 - 63 [facility] Comment on above: Performed By: #### 2 17295 #### [facility],[address] [place] [address] 87575 Anion gap [Moles/Vol] 21 mmol/L High 10 - 20 [facility] Comment on above: Performed By: #### 2 88238 #### [facility],[address] [place] [address] 73357 AST [Catalytic activity/Vol] 30 U/L Normal 13 - 39 [facility] Comment on above: Performed By: #### 2 40757 #### [facility],[address] [place] [address] 36216 B/C RATIO 19 ratio Normal 0 - 30 [facility] Comment on above: Performed By: #### 2 58603 #### [facility],[address] [place] [address] 18083 Bilirubin [Mass/Vol] 0.9 mg/dL Normal 0.2 - 1.0 [facility] Comment on above: Performed By: #### 2 69288 #### [facility],[address] [place] [address] 29552 Calcium [Mass/Vol] 9.4 mg/dL Normal 8.5 - 10.1 [facility] Comment on above: Result Comment: RESU LTS REPEATED AND VERIFIED Performed By: #### 2 63897 #### [facility],[address] [place] [address] 40405 Chloride [Moles/Vol] 94 mmol/L Low 98 - 107 [facility] Comment on above: Performed By: #### 2 75631 #### [facility],[address] [place] [address] 60085 CMP with eGFR Normal [facility] Comment on above: Result Comment: COMP REHENSIVE METABOLIC PANEL Performed By: #### 2 85354 #### [facility],[address] [place] [address] 66130 CO2 [Moles/Vol] 20.9 mmol/L Low 21.0 - 32.0 [facility] Comment on above: Result Comment: RESU LTS REPEATED AND VERIFIED Performed By: #### 2 93198 #### [address] [address] Creatinine [Mass/Vol] 1.49 mg/dL High 0.55 - 1.02 [facility] Comment on above: Result Comment: RESU LTS REPEATED AND VERIFIED Performed By: #### 2 29921 #### [facility],[address] [place] [address] 95382 eGFR 39 ML/MINUTE Low 60 - 999 [facility] Comment on above: Performed By: #### 2 68798 #### [facility],[address] [place] [address] 73818 eGFR(AA) 47 ML/MINUTE Low 60 - 999 [facility] Comment on above: Result Comment: ACCO RDING TO THE NATIONAL KIDNEY DISEASE EDUCATION PROGRAM(NKDE), A NORMAL eGFR IS A VALUE GREATER THAN OR EQUAL TO 60 ML/MIN/1.73 SQ METERS. CHRONIC KIDNEY DISEASE: <60mL/MIN/1.73 SQ METERS KIDNEY FAILURE: <15mL/MIN/1.73 SQ METERS THIS TEST SHOULD ONLY BE USED FOR PATIENTS 18 YEARS OF AGE AND OLDER. Performed By: #### 2 12326 #### [facility],[address] [place] [address] 52614 Globulin (S) [Mass/Vol] 5.8 g/dL High 1.5 - 3.8 [facility] Comment on above: Performed By: #### 2 19081 #### [facility],[address] [place] [address] 33130 Glucose [Mass/Vol] 101 mg/dL Normal 74 - 106 [facility] Comment on above: Performed By: #### 2 44461 #### [facility],[address] [place] [address] 97599 Potassium [Moles/Vol] 3.4 mmol/L Low 3.5 - 5.1 [facility] Comment on above: Performed By: #### 2 40820 #### [facility],[address] [place] [address] 17959 Protein [Mass/Vol] 8.7 g/dL High 6.4 - 8.2 [facility] Comment on above: Performed By: #### 2 64836 #### [facility],[address] [place] [address] 99562 Sodium [Moles/Vol] 132 mmol/L Low 136 - 145 [facility] Comment on above: Performed By: #### 2 46542 #### [facility],[address] [place] [address] 52576 Urea nitrogen [Mass/Vol] 29 mg/dL High 7 - 18 [facility] Comment on above: Performed By: #### 2 62136 #### [facility],[address] [place] [address] 41372 HEMOGLOBIN A1C (POM)on 10-15 Glucose [Mass/Vol] 131.2 mg/dL High 0.0 - 0.0 [facility] Comment on above: Result Comment: BLDo HEMOGLOBIN A1C REFERENCE RANGESBLDo Suggested Diagnosis HbA1c(%) HbA1C (mmol/mol Diabetic >/=6.5 >/=48 Prediabetes 5.7 - 6.4 39 - 47 Normal <5.7 <39 Performed By: #### 2 80418 #### [facility],[address] [place] [address] 86425 HbA1c (Bld) [Mass fraction] 6.2 % Normal 0.0 - 6.5 [facility] Comment on above: Performed By: #### 2 56581 #### [facility],[address] [place] [address] 93017 LIPID PROFILEon 10-15-2024 Cholesterol [Mass/Vol] 88 mg/dL Normal 0 - 240 [facility] Comment on above: Performed By: #### 2 11351 #### [facility],[address] [place] [address] 94380 Cholesterol in HDL [Mass/Vol] 66 mg/dL High 40 - 60 [facility] Comment on above: Performed By: #### 2 90721 #### [facility],[address] [place] [address] 09419 Cholesterol in LDL [Mass/Vol] 8 mg/dL Normal 0 - 129 [facility] Comment on above: Performed By: #### 2 50727 #### [facility],[address] [place] [address] 01200 Cholesterol.total/C holesterol in HDL [Mass ratio] 1.3 {ratio} Normal 0.0 - 5.0 [facility] Comment on above: Performed By: #### 2 24663 #### [facility],[address] [place] [address] 89794 Lipid 1996 panel Normal [facility] Comment on above: Result Comment: LIPI D PROFILE Performed By: #### 2 23181 #### [facility],[address] [place] [address] 48582 Triglyceride [Mass/Vol] 72 mg/dL Normal 0 - 150 [facility] Comment on above: Performed By: #### 2 39914 #### [facility],[address] [place] [address] 29264 HALOPERIDOL [CCL]on 04-19-20 25 Haloperidol <0.6 Low 5.0-20.0 [facility] Comment on above: Result Comment: INTE RPRETIVE INFORMATION: Haloperidol Level Therapeutic Range: 5.0-20.0 ng/mL Toxic: Greater than 50 ng/mL The therapeutic range is based on serum pre-dose (trough) draw at steady-state concentration. Adverse effects may include drowsiness, blurred vision, tardive dyskinesia, tachycardia, hypotension and muscular rigidity. This test was developed and its performance characteristics determined by [facility]. It has not been cleared or approved by the [place] Food and Drug Administration. This test was performed in a CLIA certified laboratory and is intended for clinical purposes. Performed By: [facility] [address] [place] [address] Exchange Architect: Willis Christine MD, PhD CLIA Number: [id number] [place] [address] Jaison Lema III, M.D. [id number] Performed By: #### 2 28292 #### [facility],[address] [place] [address] Basic metabolic 2000 panelon 10-12-2024 Anion gap [Moles/Vol] 7 mmol/L Normal 5-16 [facility] Comment on above: Order Comment: Speci men Type: BLOOD SPECIMEN Ordering Facility: [facility] Address: [address] [place] [address] Performed By: #### 4 5066-8 #### [facility] CLIA [id number] [address] [place] [address] [place] Calcium [Mass/Vol] 9.4 mg/dL Normal 8.5-10.5 [facility] Comment on above: Order Comment: Florii stef Type: BLOOD SPECIMEN Ordering Facility: [facility] Address: [address] [place] [address] Performed By: #### 4 5066-8 #### [facility] CLIA [id number] [address] [place], [place] [address] [place] Chloride [Moles/Vol] 103 mmol/L Normal 98-107 [facility] Comment on above: Order Comment: Speci men Type: BLOOD SPECIMEN Ordering Facility: [facility] Address: [address] [place] [address] Performed By: #### 4 5066-8 #### [facility] CLIA [id number] [address] [place] [address] [place] CO2 [Moles/Vol] 24 mmol/L Normal 21-32 [facility] Comment on above: Order Comment: Speci men Type: BLOOD SPECIMEN Ordering Facility: [facility] Address: [address] [place] [address] Performed By: #### 4 5066-8 #### [facility] CLIA [id number] [address] [place] [address] [place] Creatinine [Mass/Vol] 0.83 mg/dL Normal 0.51-0.95 [facility] Comment on above: Order Comment: Speci men Type: BLOOD SPECIMEN Ordering Facility: [facility] Address: [address] [place] [address] Result Comment: Marissa ents receiving either N-Acetylcysteine (NAC) or Metamizole prior to venipuncture, may have falsely depressed results. Performed By: #### 4 5066-8 #### [facility] CLIA [id number] [address] [place] [address] [place] Creatinine and Glomerular filtration rate.predicted panel (S/P/Bld) 91 mL/min/1.73m??? Normal >=60 [facility] Comment on above: Order Comment: Speci men Type: BLOOD SPECIMEN Ordering Facility: [facility] Address: [address] [place] [address] Result Comment: Zeny mated Glomerular Filtration Rate [...] GFR. Performed By: #### 4 5066-8 #### [facility] CLIA [id number] [address] [place] [address] [place] Glucose [Mass/Vol] 99 mg/dL Normal 70-100 [facility] Comment on above: Order Comment: Dora finch Type: BLOOD SPECIMEN Ordering Facility: [facility] Address: [address] [place] [address] Result Comment: The [place] Diabetes Association (ADA) provides guidance for cutoff [...] Standards of Medical Care in Diabetes 2016, [place] [employer]. Diabetes Care. 2016.39(Suppl 1). Results may be falsely elevated after the administration of Sulfapyridine. Results may be falsely depressed after the administration of Sulfasalazine. Performed By: #### 4 5066-8 #### [facility] CLIA [id number] [address] [place] [address] [place] Potassium [Moles/Vol] 3.6 mmol/L Normal 3.5-5.1 [facility] Comment on above: Order Comment: Dora finch Type: BLOOD SPECIMEN Ordering Facility: [facility] Address: [address] [place] [address] Performed By: #### 4 5066-8 #### [facility] CLIA [id number] [address] [place] [address] [place] Sodium [Moles/Vol] 134 mmol/L Low 136-145 [facility] Comment on above: Order Comment: Dora finch Type: BLOOD SPECIMEN Ordering Facility: [facility] Address: [address] [place], [place] [address] Performed By: #### 4 5066-8 #### [facility] CLIA [id number] [address] [place] [address] [place] Urea nitrogen [Mass/Vol] 7 mg/dL Normal 7-26 [facility] Comment on above: Order Comment: Speci men Type: BLOOD SPECIMEN Ordering Facility: [facility] Address: [address] [place] [address] Performed By: #### 4 5066-8 #### [facility] CLIA [id number] [address] [place] [address] [place] CBC W Auto Differential pane l (Bld)on 10-12-2024 Basophils (Bld) [#/Vol] 0.05 10*3/uL Normal <0.11 [facility] Comment on above: Order Comment: Speci men Type: BLOOD SPECIMEN Ordering Facility: [facility] Address: [address] [place] [address] Performed By: #### 4 5066-8 #### [facility] CLIA [id number] [address] [place] [address] [place] Basophils/100 WBC (Bld) 0.7 % Normal [facility] Comment on above: Order Comment: Speci men Type: BLOOD SPECIMEN Ordering Facility: [facility] Address: [address] [place] [address] Performed By: #### 4 5066-8 #### [facility] CLIA [id number] [address] [place] [address] [place] Differential cell count method Nom (Bld) Auto Normal [facility] Comment on above: Order Comment: Speci men Type: BLOOD SPECIMEN Ordering Facility: [facility] Address: [address] [place] [address] Performed By: #### 4 5066-8 #### [facility] CLIA [id number] [address] [place] [address] [place] Eosinophils (Bld) [#/Vol] 0.14 10*3/uL Normal <0.46 [facility] Comment on above: Order Comment: Speci men Type: BLOOD SPECIMEN Ordering Facility: [facility] Address: [address] [place], [place] [id number] Performed By: #### 4 5066-8 #### [facility] CLIA [id number] [address] [place] [address] [place] Eosinophils/100 WBC (Bld) 1.9 % Normal [facility] Comment on above: Order Comment: Speci men Type: BLOOD SPECIMEN Ordering Facility: [facility] Address: [address] [place] [address] Performed By: #### 4 5066-8 #### [facility] CLIA [id number] [address] [place] [address] [place] Erythrocyte distribution width (RBC) [Ratio] 14.6 % Normal 11.5-15.0 [facility] Comment on above: Order Comment: Speci men Type: BLOOD SPECIMEN Ordering Facility: [facility] Address: [address] [place] [address] Performed By: #### 4 5066-8 #### [facility] CLIA [id number] [address] [place] [address] [place] Hematocrit (Bld) [Volume fraction] 33.2 % Low 36.0-46.0 [facility] Comment on above: Order Comment: Speci men Type: BLOOD SPECIMEN Ordering Facility: [facility] Address: [address] [place] [address] Performed By: #### 4 5066-8 #### [facility] CLIA [id number] [address] [place] [address] [place] Hemoglobin (Bld) [Mass/Vol] 10.1 g/dL Low 11.5-15.5 [facility] Comment on above: Order Comment: Speci men Type: BLOOD SPECIMEN Ordering Facility: [facility] Address: [address] [place] [address] Performed By: #### 4 5066-8 #### [facility] CLIA [id number] [address] [place] [address] [place] Immature granulocytes (Bld) [#/Vol] 0.04 10*3/uL Normal <0.10 [facility] Comment on above: Order Comment: Speci men Type: BLOOD SPECIMEN Ordering Facility: [facility] Address: [address] [place] [address] Performed By: #### 4 5066-8 #### [facility] CLIA [id number] [address] [place] [address] [place] Immature granulocytes/100 WBC (Bld) 0.5 % Normal [facility] Comment on above: Order Comment: Speci men Type: BLOOD SPECIMEN Ordering Facility: [facility] Address: [address] [place] [address] Performed By: #### 4 5066-8 #### [facility] CLIA [id number] [address] [place] [address] [place] Lymphocytes (Bld) [#/Vol] 2.84 10*3/uL Normal 1.00-4.00 [facility] Comment on above: Order Comment: Speci men Type: BLOOD SPECIMEN Ordering Facility: [facility] Address: [address] [place] [address] Performed By: #### 4 5066-8 #### [facility] CLIA [id number] [address] [place] [address] Lymphocytes/100 WBC (Bld) 38.4 % Normal [facility] Comment on above: Order Comment: Speci men Type: BLOOD SPECIMEN Ordering Facility: [facility] Address: [address] [place] [address] Performed By: #### 4 5066-8 #### [facility] CLIA [id number] [address] [place] [address] [place] MCH (RBC) [Entitic mass] 24.1 pg Low 26.0-34.0 [facility] Comment on above: Order Comment: Speci men Type: BLOOD SPECIMEN Ordering Facility: [facility] Address: [address] [place] [address] Performed By: #### 4 5066-8 #### [facility] CLIA [id number] [address] [place] [address] [place] MCHC (RBC) [Mass/Vol] 30.4 g/dL Low 30.5-36.0 [facility] Comment on above: Order Comment: Speci men Type: BLOOD SPECIMEN Ordering Facility: [facility] Address: [address] [place] [address] Performed By: #### 4 5066-8 #### [facility] CLIA [id number] [address] [place] [address] [place] MCV (RBC) [Entitic vol] 79.2 fL Low 80.0-100.0 [facility] Comment on above: Order Comment: Speci men Type: BLOOD SPECIMEN Ordering Facility: [facility] Address: [address] [place] [address] Performed By: #### 4 5066-8 #### [facility] CLIA [id number] [address] [place] [address] [place] Monocytes (Bld) [#/Vol] 0.68 10*3/uL Normal <0.87 [facility] Comment on above: Order Comment: Speci men Type: BLOOD SPECIMEN Ordering Facility: [facility] Address: [address] [place] [address] Performed By: #### 4 5066-8 #### [facility] CLIA [id number] [address] [place] [address] [place] Monocytes/100 WBC (Bld) 9.2 % Normal [facility] Comment on above: Order Comment: Speci men Type: BLOOD SPECIMEN Ordering Facility: [facility] Address: [address] [place] [address] Performed By: #### 4 5066-8 #### [facility] CLIA [id number] [address] [place] [address] [place] Neutrophils (Bld) [#/Vol] 3.65 10*3/uL Normal 1.45-7.50 [facility] Comment on above: Order Comment: Speci men Type: BLOOD SPECIMEN Ordering Facility: [facility] Address: [address] [place] [address] Performed By: #### 4 5066-8 #### [facility] CLIA [id number] [address] [place] [address] [place] Neutrophils/100 WBC (Bld) 49.3 % Normal [facility] Comment on above: Order Comment: Speci men Type: BLOOD SPECIMEN Ordering Facility: [facility] Address: [address] [place] [address] Performed By: #### 4 5066-8 #### [facility] CLIA [id number] [address] [place] [address] [place] Nucleated RBC (Bld) [#/Vol] 10*3/uL Normal <0.01 [facility] Comment on above: Order Comment: Speci men Type: BLOOD SPECIMEN Ordering Facility: [facility] Address: [address] [place] [address] Performed By: #### 4 5066-8 #### [facility] CLIA [id number] [address] [place] [address] [place] Nucleated RBC/100 WBC (Bld) [Ratio] 0.0 /100 WBC Normal [facility] Comment on above: Order Comment: Speci men Type: BLOOD SPECIMEN Ordering Facility: [facility] Address: [address] [place] [address] Performed By: #### 4 5066-8 #### [facility] CLIA [id number] [address] [place] [address] [place] Platelet mean volume (Bld) [Entitic vol] 8.9 fL Low 9.0-12.7 [facility] Comment on above: Order Comment: Speci men Type: BLOOD SPECIMEN Ordering Facility: [facility] Address: [address] [place] [address] Performed By: #### 4 5066-8 #### [facility] CLIA [id number] [address] [place] [address] [place] Platelets (Bld) [#/Vol] 344 10*3/uL Normal 150-400 [facility] Comment on above: Order Comment: Speci men Type: BLOOD SPECIMEN Ordering Facility: [facility] Address: [address] [place] [address] Performed By: #### 4 5066-8 #### [facility] CLIA [id number] [address] [place], [place] [address] [facility] RBC (Bld) [#/Vol] 4.19 10*6/uL Normal 3.90-5.20 [facility] Comment on above: Order Comment: Speci men Type: BLOOD SPECIMEN Ordering Facility: [facility] Address: [address] [place] [address] Performed By: #### 4 5066-8 #### [facility] CLIA [id number] [address] [place], [place] [address] [facility] WBC (Bld) [#/Vol] 7.40 10*3/uL Normal 3.70-11.00 [facility] Comment on above: Order Comment: Speci men Type: BLOOD SPECIMEN Ordering Facility: [facility] Address: [address] [place] [address] Performed By: #### 4 5066-8 #### [facility] CLIA [id number] [address] [place], [place] [address] [facility] CNDSon 10-12-2024 CNDS HNO ID: [id number] Author: DIANDRA MARTINEZ MD Service: General Internal Medicine Author Type: Physician Type: Discharge Summary Filed: 10/12/2024 09:43 Note Text: DISCHARGE SUMMARY PATIENT NAME: Daly Estrella Lover ADMISSION DATE: 10/09/2024 Date or Evaluation: 10/12/2024 [...] Lovenox, status post colostomy who presented to [facility] ED for accidental overdose. Patient resides in a nursing facility, approximately 1 month ago was taken to [facility] for colostomy after developing bowel obstruction. [...] PATIENT CONDITION AT DISCHARGE: Stable DISCHARGE DISPOSITION: [facility] Facility Physical Exam: General: Not in acute [...] escitalopram oxa (more content not included)... Normal [facility] Basic metabolic 2000 panelon 10-11-2024 Anion gap [Moles/Vol] 10 mmol/L Normal 5-16 [facility] Comment on above: Order Comment: Speci stef Type: BLOOD SPECIMENOrdering Facility: [facility] Address: [address] [place] [address] Performed By: #### 2 4321-2 ####[facility] [id number] [place] [address] [place] Calcium [Mass/Vol] 9.2 mg/dL Normal 8.5-10.5 [facility] Comment on above: Order Comment: Florii stef Type: BLOOD SPECIMENOrdering Facility: [facility] Address: [address] [place] [address] Performed By: #### 2 4321-2 ####[facility] [id number] [place] [address] [place] Chloride [Moles/Vol] 101 mmol/L Normal 98-107 [facility] Comment on above: Order Comment: Speci men Type: BLOOD SPECIMENOrdering Facility: [facility] Address: [address] [place] [address] Performed By: #### 2 4321-2 ####[facility] [id number] [place] [address] [place] CO2 [Moles/Vol] 25 mmol/L Normal 21-32 [facility] Comment on above: Order Comment: Speci men Type: BLOOD SPECIMENOrdering Facility: [facility] Address: [address] [place] [address] Performed By: #### 2 4321-2 ####[facility] [id number] [address] [place] Creatinine [Mass/Vol] 0.76 mg/dL Normal 0.51-0.95 [facility] Comment on above: Order Comment: Speci men Type: BLOOD SPECIMENOrdering Facility: [facility] Address: [address] [place] [address] Result Comment: Marissa ents receiving either N-Acetylcysteine (NAC) or Metamizole prior to venipuncture, may have falsely depressed results. Performed By: #### 2 4321-2 ####[facility] [id number] [place] [address] [place] Creatinine and Glomerular filtration rate.predicted panel (S/P/Bld) 101 mL/min/1.73m??? Normal >=60 [facility] Comment on above: Order Comment: Speci men Type: BLOOD SPECIMENOrdering Facility: [facility] Address: [address] [place] [address] Result Comment: Zeny mated Glomerular Filtration Rate [...] actual GFR. Performed By: #### 2 4321-2 ####[facility] [id number] [place] [id number] [place] Glucose [Mass/Vol] 102 mg/dL High 70-100 [facility] Comment on above: Order Comment: Speci stef Type: BLOOD SPECIMENOrdering Facility: [facility] Address: [address] [place] [id number] Result Comment: The [place] Diabetes Association (ADA) provides guidance for cutoff [...] Standards of Medical Care in Diabetes 2016, [place] [employer]. Diabetes Care. 2016.39(Suppl 1). Results may be falsely elevated after the administration of Sulfapyridine. Results may be falsely depressed after the administration of Sulfasalazine. Performed By: #### 2 4321-2 ####[facility] [id number] [place] [id number] [place] Potassium [Moles/Vol] 3.0 mmol/L Low 3.5-5.1 [facility] Comment on above: Order Comment: Florii men Type: BLOOD SPECIMENOrdering Facility: [facility] Address: [address] [place] [address] Performed By: #### 2 4321-2 ####[facility] [id number] [place] [id number] [place] Sodium [Moles/Vol] 136 mmol/L Normal 136-145 [facility] Comment on above: Order Comment: Florii stef Type: BLOOD SPECIMENOrdering Facility: [facility] Address: [address] [place] [address] Performed By: #### 2 4321-2 ####[facility] [id number] [place] [address] [place] Urea nitrogen [Mass/Vol] 6 mg/dL Low 01-19 [facility] Comment on above: Order Comment: Speci men Type: BLOOD SPECIMENOrdering Facility: [facility] Address: [address] [place] [address] Performed By: #### 2 4321-2 ####[facility] [id number] [place] [address] [place] CBC W Auto Differential pane l (Bld)on 10-11-2024 Basophils (Bld) [#/Vol] 0.03 10*3/uL Normal <0.11 [facility] Comment on above: Order Comment: Speci men Type: BLOOD SPECIMENOrdering Facility: [facility] Address: [address] [place] [address] Performed By: #### 5 7021-8 ####[facility]IA [id number] [place] [address] [place] Basophils/100 WBC (Bld) 0.5 % Normal [facility] Comment on above: Order Comment: Speci men Type: BLOOD SPECIMENOrdering Facility: [facility] Address: [address] [place] [address] Performed By: #### 5 7021-8 ####[facility] [id number] [address] [place] Differential cell count method Nom (Bld) Auto Normal [facility] Comment on above: Order Comment: Speci men Type: BLOOD SPECIMENOrdering Facility: [facility] Address: [address] [place] [address] Performed By: #### 5 7021-8 ####[facility]IA [id number] [place] [address] [place] Eosinophils (Bld) [#/Vol] 0.09 10*3/uL Normal <0.46 [facility] Comment on above: Order Comment: Speci men Type: BLOOD SPECIMENOrdering Facility: [facility] Address: [address] [place] [address] Performed By: #### 5 7021-8 ####[facility]ORYCLIA [id number] [place] [id number] [place] Eosinophils/100 WBC (Bld) 1.5 % Normal [facility] Comment on above: Order Comment: Speci men Type: BLOOD SPECIMENOrdering Facility: [facility] Address: [address] [place] [address] Performed By: #### 5 7021-8 ####[facility] [id number] [address] [place] Erythrocyte distribution width (RBC) [Ratio] 14.8 % Normal 11.5-15.0 [facility] Comment on above: Order Comment: Speci men Type: BLOOD SPECIMENOrdering Facility: [facility] Address: [address] [place] [address] Performed By: #### 5 7021-8 ####[facility]ORYCLIA [id number] [place] [address] [place] Hematocrit (Bld) [Volume fraction] 29.6 % Low 36.0-46.0 [facility] Comment on above: Order Comment: Speci men Type: BLOOD SPECIMENOrdering Facility: [facility] Address: [address] [place] [address] Performed By: #### 5 7021-8 ####[facility]ORYCLIA [id number] [place] [address] [place] Hemoglobin (Bld) [Mass/Vol] 9.2 g/dL Low 11.5-15.5 [facility] Comment on above: Order Comment: Speci men Type: BLOOD SPECIMENOrdering Facility: [facility] Address: [address] [place] [address] Performed By: #### 5 7021-8 ####[facility]ORYCLIA [id number] [place] [id number] [place] Immature granulocytes (Bld) [#/Vol] 0.03 10*3/uL Normal <0.10 [facility] Comment on above: Order Comment: Speci men Type: BLOOD SPECIMENOrdering Facility: [facility] Address: [address] [place] [address] Performed By: #### 5 7021-8 ####[facility]ORYCLIA [id number] [place] [address] [place] Immature granulocytes/100 WBC (Bld) 0.5 % Normal [facility] Comment on above: Order Comment: Speci men Type: BLOOD SPECIMENOrdering Facility: [facility] Address: [address] [place] [address] Performed By: #### 5 7021-8 ####[facility]ORYCLIA [id number] [place] [address] [place] Lymphocytes (Bld) [#/Vol] 1.59 10*3/uL Normal 1.00-4.00 [facility] Comment on above: Order Comment: Speci men Type: BLOOD SPECIMENOrdering Facility: [facility] Address: [address] [place] [address] Performed By: #### 5 7021-8 ####[facility]ORYCLIA [id number] [address] [place] Lymphocytes/100 WBC (Bld) 27.2 % Normal [facility] Comment on above: Order Comment: Speci men Type: BLOOD SPECIMENOrdering Facility: [facility] Address: [address] [place] [address] Performed By: #### 5 7021-8 ####[facility]ORYCLIA [id number] [place] [address] [place] MCH (RBC) [Entitic mass] 24.2 pg Low 26.0-34.0 [facility] Comment on above: Order Comment: Speci men Type: BLOOD SPECIMENOrdering Facility: [facility] Address: [address] [place] [address] Performed By: #### 5 7021-8 ####[facility]ORYCLIA [id number] [place] [address] [place] MCHC (RBC) [Mass/Vol] 31.1 g/dL Normal 30.5-36.0 [facility] Comment on above: Order Comment: Speci men Type: BLOOD SPECIMENOrdering Facility: [facility] Address: [address] [place] [address] Performed By: #### 5 7021-8 ####[facility]ORYCLIA [id number] [place] [address] [place] MCV (RBC) [Entitic vol] 77.9 fL Low 80.0-100.0 [facility] Comment on above: Order Comment: Speci men Type: BLOOD SPECIMENOrdering Facility: [facility] Address: [address] [place] [address] Performed By: #### 5 7021-8 ####[facility]ORYCLIA [id number] [place] [address] [place] Monocytes (Bld) [#/Vol] 0.62 10*3/uL Normal <0.87 [facility] Comment on above: Order Comment: Speci men Type: BLOOD SPECIMENOrdering Facility: [facility] Address: [address] [place] [address] Performed By: #### 5 7021-8 ####[facility]ORYCLIA [id number] [address] [place] Monocytes/100 WBC (Bld) 10.6 % Normal [facility] Comment on above: Order Comment: Speci men Type: BLOOD SPECIMENOrdering Facility: [facility] Address: [address] [place] [address] Performed By: #### 5 7021-8 ####[facility]ORYCLIA [id number] [place] [address] [place] Neutrophils (Bld) [#/Vol] 3.48 10*3/uL Normal 1.45-7.50 [facility] Comment on above: Order Comment: Speci men Type: BLOOD SPECIMENOrdering Facility: [facility] Address: [address] [place] [address] Performed By: #### 5 7021-8 ####[facility]ORYCLIA [id number] [place] [id number] [facility] Neutrophils/100 WBC (Bld) 59.7 % Normal [facility] Comment on above: Order Comment: Speci men Type: BLOOD SPECIMENOrdering Facility: [facility] Address: [address] [place] [address] Performed By: #### 5 7021-8 ####[facility]ORYCLIA [id number] [place] [address] [place] Nucleated RBC (Bld) [#/Vol] 10*3/uL Normal <0.01 [facility] Comment on above: Order Comment: Speci men Type: BLOOD SPECIMENOrdering Facility: [facility] Address: [address] [place] [address] Performed By: #### 5 7021-8 ####[facility]ORYCLIA [id number] [address] [place] Nucleated RBC/100 WBC (Bld) [Ratio] 0.0 /100 WBC Normal [facility] Comment on above: Order Comment: Speci men Type: BLOOD SPECIMENOrdering Facility: [facility] Address: [address] [place] [address] Performed By: #### 5 7021-8 ####[facility]ORYCLIA [id number] [place] [address] [place] Platelet mean volume (Bld) [Entitic vol] 9.3 fL Normal 9.0-12.7 [facility] Comment on above: Order Comment: Speci men Type: BLOOD SPECIMENOrdering Facility: [facility] Address: [address] [place] [address] Performed By: #### 5 7021-8 ####[facility]ORYCLIA [id number] [place] [address] [place] Platelets (Bld) [#/Vol] 362 10*3/uL Normal 150-400 [facility] Comment on above: Order Comment: Speci men Type: BLOOD SPECIMENOrdering Facility: [facility] Address: [address] [id number] Performed By: #### 5 7021-8 ####[facility]ORYCLIA [id number] [address] OF [facility] RBC (Bld) [#/Vol] 3.80 10*6/uL Low 3.90-5.20 [facility] Comment on above: Order Comment: Speci men Type: BLOOD SPECIMENOrdering Facility: [facility] Address: [address] [place] [address] Performed By: #### 5 7021-8 ####[facility]ORYCLIA [id number] [address] OF [facility] WBC (Bld) [#/Vol] 5.84 10*3/uL Normal 3.70-11.00 [facility] Comment on above: Order Comment: Speci men Type: BLOOD SPECIMENOrdering Facility: [facility] Address: [address] [place] [address] Performed By: #### 5 7021-8 ####[facility]ORYCLIA [id number] [address] OF [facility] ALLIED HEALTHon 10-10-2024 ALLIED HEALTH HNO ID: [id number] Author: SANG CASE RN Service: Wound/Ostomy Author [...] is using betadine for the toes/heel. RECOMMENDATIONS: retort cooler Communication Order; Dressing recommendations require a provider's order, please obtain and place as a Dressing Care order. Right and left toe and Left Heel eschar. Donaldson with betadine daily. If you notice drainage anywhere, apply silver alginate and gauze-change daily. Maintain pressure prevention interventions-offload heels with pillows or Truevue boots.. Re-consult Wound Care if skin or wounds deteriorate further or if new problems arise. [facility] ALLIED HEALTH HNO ID: [id number] Author: SANG CASE RN Service: Wound/Ostomy Author [...] sting skin prep pad. Apply Augustine paste #44951 into any creases at 3 and 9 o'clock. Apply Augustine #8815 adapt ring around the stoma. Apply pouching system: Pouching System: There are 2 pouches for the patient to try 1) #42160 [employer] [place] 2 piece Flex High Output ostomy pouch with soft outlet-included a clip in case the drainage is too thick for the outlet. In this case, just cut off the spout and use a clip to secure/empty. #[id number] Convex light ostomy 2 piece flex with belt tabs 2) can also try #12315 JERONIMO Ultramax cut to fit large deep convex pouch Wear Time Goal: 3-4 days If additional ostomy supplies are needed, please call [facility] [employer] ([phone]) for above mentioned supplies. If supplies are unavailable in [facility] [employer], please secure chat [facility] or call extension [phone] to request more supplies. Normal [facility] Basic metabolic 2000 panelon 10-10-2024 Anion gap [Moles/Vol] 9 mmol/L Normal 11-09 [facility] Comment on above: Order Comment: Speci men Type: BLOOD SPECIMEN Ordering Facility: [facility] Address: [address] [place], [place] [address] [address] Performed By: #### 2 4321-2 #### [facility] CLIA [id number] [address] [place], [place] [address] [place] Calcium [Mass/Vol] 9.2 mg/dL Normal 8.5-10.5 [facility] Comment on above: Order Comment: Speci men Type: BLOOD SPECIMEN Ordering Facility: [facility] Address: [address] [place] [address] Performed By: #### 2 4321-2 #### [facility] CLIA [id number] [address] [place] [address] [place] Chloride [Moles/Vol] 99 mmol/L Normal 98-107 [facility] Comment on above: Order Comment: Speci men Type: BLOOD SPECIMEN Ordering Facility: [facility] Address: [address] [place] [address] Performed By: #### 2 4321-2 #### [facility] CLIA [id number] [address] [place] [address] [place] CO2 [Moles/Vol] 22 mmol/L Normal 21-32 [facility] Comment on above: Order Comment: Speci men Type: BLOOD SPECIMEN Ordering Facility: [facility] Address: [address] [place] [address] Performed By: #### 2 4321-2 #### [facility] CLIA [id number] [address] [place] [address] [place] Creatinine [Mass/Vol] 0.76 mg/dL Normal 0.51-0.95 [facility] Comment on above: Order Comment: Speci men Type: BLOOD SPECIMEN Ordering Facility: [facility] Address: [address] [place] [address] Result Comment: Marissa ents receiving either N-Acetylcysteine (NAC) or Metamizole prior to venipuncture, may have falsely depressed results. Performed By: #### 2 4321-2 #### [facility] CLIA [id number] [address] [place], [place] [address] [place] Creatinine and Glomerular filtration rate.predicted panel (S/P/Bld) 101 mL/min/1.73m??? Normal >=60 [facility] Comment on above: Order Comment: Dora finch Type: BLOOD SPECIMEN Ordering Facility: [facility] Address: [address] [place] [address] Result Comment: Zeny mated Glomerular Filtration Rate [...] GFR. Performed By: #### 2 4321-2 #### [facility] CLIA [id number] [address] [place] [address] [place] Glucose [Mass/Vol] 88 mg/dL Normal 70-100 [facility] Comment on above: Order Comment: Dora finch Type: BLOOD SPECIMEN Ordering Facility: [facility] Address: [address] [place] [address] Result Comment: The [place] Diabetes Association (ADA) provides guidance for cutoff [...] Standards of Medical Care in Diabetes 2016, [place] [employer] Association. Diabetes Care. 2016.39(Suppl 1). Results may be falsely elevated after the administration of Sulfapyridine. Results may be falsely depressed after the administration of Sulfasalazine. Performed By: #### 2 4321-2 #### [facility] CLIA [id number] [address] [place] [address] [place] Potassium [Moles/Vol] 3.4 mmol/L Low 3.5-5.1 [facility] Comment on above: Order Comment: Speci men Type: BLOOD SPECIMEN Ordering Facility: [facility] Address: [address] [place] [address] Performed By: #### 2 4321-2 #### [facility] CLIA [id number] [address] [place] [address] [place] Sodium [Moles/Vol] 130 mmol/L Low 136-145 [facility] Comment on above: Order Comment: Speci men Type: BLOOD SPECIMEN Ordering Facility: [facility] Address: [address] [place] [address] Performed By: #### 2 4321-2 #### [facility] CLIA [id number] [address] [place] [address] [place] Urea nitrogen [Mass/Vol] 9 mg/dL Normal 01-19 [facility] Comment on above: Order Comment: Speci men Type: BLOOD SPECIMEN Ordering Facility: [facility] Address: [address] [place] [address] Performed By: #### 2 4321-2 #### [facility] CLIA [id number] [address] [place] [address] [place] CBC W Auto Differential pane l (Bld)on 10-10-2024 Basophils (Bld) [#/Vol] 0.05 10*3/uL Normal <0.11 [facility] Comment on above: Order Comment: Speci men Type: BLOOD SPECIMEN Ordering Facility: [facility] Address: [address] [place] [address] Performed By: #### 5 7021-8 #### [facility] CLIA [id number] [address] [place] [address] [place] Basophils/100 WBC (Bld) 0.7 % Normal [facility] Comment on above: Order Comment: Speci men Type: BLOOD SPECIMEN Ordering Facility: [facility] Address: [address] [place] [address] Performed By: #### 5 7021-8 #### [facility] CLIA [id number] [address] [place] [address] [place] Differential cell count method Nom (Bld) Auto Normal [facility] Comment on above: Order Comment: Speci men Type: BLOOD SPECIMEN Ordering Facility: [facility] Address: [address] [place] [address] Performed By: #### 5 7021-8 #### [facility] CLIA [id number] [address] [place] [address] [place] Eosinophils (Bld) [#/Vol] 0.07 10*3/uL Normal <0.46 [facility] Comment on above: Order Comment: Speci men Type: BLOOD SPECIMEN Ordering Facility: [facility] Address: [address] [place] [address] Performed By: #### 5 7021-8 #### [facility] CLIA [id number] [address] [place] [address] [place] Eosinophils/100 WBC (Bld) 1.0 % Normal [facility] Comment on above: Order Comment: Speci men Type: BLOOD SPECIMEN Ordering Facility: [facility] Address: [address] [place] [address] Performed By: #### 5 7021-8 #### [facility] CLIA [id number] [address] [place] [address] [place] Erythrocyte distribution width (RBC) [Ratio] 14.9 % Normal 11.5-15.0 [facility] Comment on above: Order Comment: Speci men Type: BLOOD SPECIMEN Ordering Facility: [facility] Address: [address] [place] [address] Performed By: #### 5 7021-8 #### [facility] CLIA [id number] [address] [place] [address] [place] Hematocrit (Bld) [Volume fraction] 33.3 % Low 36.0-46.0 [facility] Comment on above: Order Comment: Speci men Type: BLOOD SPECIMEN Ordering Facility: [facility] Address: [address] [place] [address] Performed By: #### 5 7021-8 #### [facility] CLIA [id number] [address] [place] [address] [place] Hemoglobin (Bld) [Mass/Vol] 10.4 g/dL Low 11.5-15.5 [facility] Comment on above: Order Comment: Speci men Type: BLOOD SPECIMEN Ordering Facility: [facility] Address: [address] [place] [address] Performed By: #### 5 7021-8 #### [facility] CLIA [id number] [address] [place] [address] [place] Immature granulocytes (Bld) [#/Vol] 10*3/uL Normal <0.10 [facility] Comment on above: Order Comment: Speci men Type: BLOOD SPECIMEN Ordering Facility: [facility] Address: [address] [place] [address] Performed By: #### 5 7021-8 #### [facility] CLIA [id number] [address] [place] [address] [place] Immature granulocytes/100 WBC (Bld) 0.3 % Normal [facility] Comment on above: Order Comment: Speci men Type: BLOOD SPECIMEN Ordering Facility: [facility] Address: [address] [place] [address] Performed By: #### 5 7021-8 #### [facility] CLIA [id number] [address] [place] [address] [place] Lymphocytes (Bld) [#/Vol] 2.17 10*3/uL Normal 1.00-4.00 [facility] Comment on above: Order Comment: Speci men Type: BLOOD SPECIMEN Ordering Facility: [facility] Address: [address] [place] [address] Performed By: #### 5 7021-8 #### [facility] CLIA [id number] [address] [place] [address] [place] Lymphocytes/100 WBC (Bld) 30.6 % Normal [facility] Comment on above: Order Comment: Speci men Type: BLOOD SPECIMEN Ordering Facility: [facility] Address: [address] [place] [address] Performed By: #### 5 7021-8 #### [facility] CLIA [id number] [address] [place] [address] [place] MCH (RBC) [Entitic mass] 24.3 pg Low 26.0-34.0 [facility] Comment on above: Order Comment: Speci men Type: BLOOD SPECIMEN Ordering Facility: [facility] Address: [address] [place] [address] Performed By: #### 5 7021-8 #### [facility] CLIA [id number] [address] [place] [address] [place] MCHC (RBC) [Mass/Vol] 31.2 g/dL Normal 30.5-36.0 [facility] Comment on above: Order Comment: Speci men Type: BLOOD SPECIMEN Ordering Facility: [facility] Address: [address] [place] [address] Performed By: #### 5 7021-8 #### [facility] CLIA [id number] [address] [place] [address] [place] [facility] MCV (RBC) [Entitic vol] 77.8 fL Low 80.0-100.0 [facility] Comment on above: Order Comment: Speci men Type: BLOOD SPECIMEN Ordering Facility: [facility] Address: [address] [place] [address] Performed By: #### 5 7021-8 #### [facility] CLIA [id number] [address] [place] [address] [place] Monocytes (Bld) [#/Vol] 0.77 10*3/uL Normal <0.87 [facility] Comment on above: Order Comment: Speci men Type: BLOOD SPECIMEN Ordering Facility: [facility] Address: [address] [place] [address] Performed By: #### 5 7021-8 #### [facility] CLIA [id number] [address] [place] [address] [place] Monocytes/100 WBC (Bld) 10.9 % Normal [facility] Comment on above: Order Comment: Speci men Type: BLOOD SPECIMEN Ordering Facility: [facility] Address: [address] [place] [address] Performed By: #### 5 7021-8 #### [facility] CLIA [id number] [address] [place] [address] [place] Neutrophils (Bld) [#/Vol] 4.01 10*3/uL Normal 1.45-7.50 [facility] Comment on above: Order Comment: Speci men Type: BLOOD SPECIMEN Ordering Facility: [facility] Address: [address] [place] [address] Performed By: #### 5 7021-8 #### [facility] CLIA [id number] [address] [place] [address] [place] Neutrophils/100 WBC (Bld) 56.5 % Normal [facility] Comment on above: Order Comment: Speci men Type: BLOOD SPECIMEN Ordering Facility: [facility] Address: [address] [place] [address] Performed By: #### 5 7021-8 #### [facility] CLIA [id number] [address] [place] [address] [place] Nucleated RBC (Bld) [#/Vol] 10*3/uL Normal <0.01 [facility] Comment on above: Order Comment: Speci men Type: BLOOD SPECIMEN Ordering Facility: [facility] Address: [address] [place] [address] Performed By: #### 5 7021-8 #### [facility] CLIA [id number] [address] [place] [address] [place] Nucleated RBC/100 WBC (Bld) [Ratio] 0.0 /100 WBC Normal [facility] Comment on above: Order Comment: Speci men Type: BLOOD SPECIMEN Ordering Facility: [facility] Address: [address] [place] [address] Performed By: #### 5 7021-8 #### [facility] CLIA [id number] [address] [place] [address] [place] Platelet mean volume (Bld) [Entitic vol] 8.8 fL Low 9.0-12.7 [facility] Comment on above: Order Comment: Speci men Type: BLOOD SPECIMEN Ordering Facility: [facility] Address: [address] [place] [address] Performed By: #### 5 7021-8 #### [facility] CLIA [id number] [address] [place] [address] [place] Platelets (Bld) [#/Vol] 380 10*3/uL Normal 150-400 [facility] Comment on above: Order Comment: Speci men Type: BLOOD SPECIMEN Ordering Facility: [facility] Address: [address] [place] [address] Performed By: #### 5 7021-8 #### [facility] CLIA [id number] [address] [place] [address] [place] RBC (Bld) [#/Vol] 4.28 10*6/uL Normal 3.90-5.20 [facility] Comment on above: Order Comment: Speci men Type: BLOOD SPECIMEN Ordering Facility: [facility] Address: [address] [place] [address] Performed By: #### 5 7021-8 #### [facility] CLIA [id number] [address] [place] [address] [place] WBC (Bld) [#/Vol] 7.09 10*3/uL Normal 3.70-11.00 [facility] Comment on above: Order Comment: Speci men Type: BLOOD SPECIMEN Ordering Facility: [facility] Address: [address] [place] [address] Performed By: #### 5 7021-8 #### [facility] CLIA [id number] [address] [place] [address] CONSULTon 10-10-2024 CONSULT HNO ID: [id number] Author: RAKESH DAVIS APRN.JUMBO OPERATOR Service: Gastroenterology Author Type: Nurse Practitioner Type: [...] decrease to once daily until seen by biology lecturer as an outpatient. Once her anticoagulation can [...] extremity lateral fasciotomy closures 08/23/2024, presented to [facility] 10/09 as a transfer from [facility] for [...] Narcan x2 doses. Patient was taken to [facility] ED and transferred to [facility] for GI evaluation. The patient is [...] state on Loven (more content not included)... [facility] CONSULT PROGon 10-10-2024 CONSULT PROG HNO ID: [id number] Author: FREDRICK SALAS RPh Service: Pharmacy Author Type: Pharmacist [...] contact pharmacy if there are questions. Fredrick Salas RPh [facility] NUTRITIONon 10-10-2024 NUTRITION HNO ID: [id number] Author: KENYA SANTAMARIA RD Service: Nutrition Therapy Author Type: Registered Dietitian Type: Nutrition Filed: 10/10/2024 14:27 Note Text: NUTRITION THERAPY INITIAL ASSESSMENT SERVICE DATE: 10/10/2024 SERVICE TIME: 5 REASON FOR VISIT: MST 2 / Nutrition [...] Weight Type: Current weight Estimated kilocalorie needs: 7995-4624 Calorie Calculation Method: 20-25 kcals/kg Estimated protein [...] October 10, 2024 TIME: 2:23 PM Normal [facility] APTTon 10-09-2024 aPTT Coag (Bld) [Time] 30.8 s Normal 25.4 - 38.4 [facility] Comment on above: Performed By: #### 2 81106 #### [facility],[address] [place] [address] 80752 CBC + DIFFon 10-09-2024 Baso # 0.06 x10EE3/UL Normal 0.00 - 0.10 [facility] Comment on above: Performed By: #### 2 07314 #### [facility],[address] [place] [address] 16294 Basophils/100 WBC (Bld) 0.4 % Normal 0.0 - 2.0 [facility] Comment on above: Performed By: #### 2 85902 #### [facility],[address] [place] [address] 43253 CBC + DIFF Normal [facility] Comment on above: Result Comment: CBC- COMPLETE BLOOD COUNT Performed By: #### 2 61251 #### [facility],[address] [place] [address] 20657 EO # 0.11 x10EE3/UL Normal 0.00 - 0.50 [facility] Comment on above: Performed By: #### 2 09644 #### [facility],[address] [place] [address] 31513 Eosinophils/100 WBC (Bld) 0.6 % Normal 0.0 - 7.0 [facility] Comment on above: Performed By: #### 2 96266 #### [facility],[address] [place] [address] 42992 Erythrocyte distribution width (RBC) [Ratio] 16.5 % High 12.0 - 15.6 [facility] Comment on above: Performed By: #### 2 70558 #### [facility],[address] [place] [address] 16187 Hematocrit (Bld) [Volume fraction] 37.0 % Normal 34.0 - 46.0 [facility] Comment on above: Performed By: #### 2 77450 #### [facility],[address] [place] [address] 33554 Hemoglobin (Bld) [Mass/Vol] 12.3 g/dL Normal 12.0 - 16.0 [facility] Comment on above: Performed By: #### 2 72926 #### [facility],[address] [place] [address] Lymph # 3.19 x10EE3/UL High 0.80 - 2.80 [facility] Comment on above: Performed By: #### 2 09593 #### [facility],[address] [place], [place] [address] Lymphocytes/100 WBC (Bld) 18.0 % Low 20.0 - 45.0 [facility] Comment on above: Performed By: #### 2 12872 #### [facility],[address] [place] [address] 38498 MANUAL DIFF N/A Normal [facility] Comment on above: Performed By: #### 2 45851 #### [facility],[address] [place] [address] 54118 MCH (RBC) [Entitic mass] 25 pg Low 27 - 33 [facility] Comment on above: Performed By: #### 2 45497 #### [facility],[address] [place] [address] 45780 MCHC 33 X10 3 Normal 32 - 36 [facility] Comment on above: Performed By: #### 2 75932 #### [facility],[address] [place] [address] 54350 MCV (RBC) [Entitic vol] 76 fL Low 80 - 99 [facility] Comment on above: Performed By: #### 2 67664 #### [facility],[address] [place] [address] 37460 [place] # 1.03 x10EE3/UL High 0.20 - 1.00 [facility] Comment on above: Performed By: #### 2 25328 #### [facility],[address] [place] [address] 97858 MONOS % 5.8 % Normal 0.0 - 10.0 [facility] Comment on above: Performed By: #### 2 68286 #### [facility],[address] [place] [address] 62867 Morphology Stan (Bld) [Interp] N/A Normal [facility] Comment on above: Performed By: #### 2 38802 #### [facility],[address] [place] [address] 03149 Neut # 13.36 x10EE3/UL High 1.50 - 7.10 [facility] Comment on above: Performed By: #### 2 92878 #### [facility],[address] [place] [address] 22172 Neutrophils/100 WBC (Bld) 75.2 % Normal 46.0 - 76.0 [facility] Comment on above: Performed By: #### 2 93869 #### [facility],[address] [place] [address] 03048 PLATELET 657 x10EE3/UL High 150 - 450 [facility] Comment on above: Performed By: #### 2 98459 #### [facility],[address] [place] [address] 57866 Platelet mean volume (Bld) [Entitic vol] 7.7 fL Normal 6.6 - 10.5 [facility] Comment on above: Result Comment: AUTO MATED DIFFERENTIAL Performed By: #### 2 63121 #### [facility],[address] [place] [address] 28902 RBC 4.85 x 10EE6/UL Normal 4.10 - 5.30 [facility] Comment on above: Performed By: #### 2 82787 #### [facility],[address] [place] [address] 11518 WBC 17.8 x 10EE3/UL High 4.5 - 10.8 [facility] Comment on above: Performed By: #### 2 13432 #### [facility],[address] [place], [place] [address] CMP with eGFRon 10-09-2024 AGE 39 years Normal [facility] Comment on above: Performed By: #### 2 10645 #### [facility],[address] [place] [address] 65130 Albumin [Mass/Vol] 3.1 g/dL Low 3.4 - 5.0 [facility] Comment on above: Performed By: #### 2 15638 #### [facility],[address] [place] [address] Albumin/Globulin [Mass ratio] 0.5 {ratio} Low 0.9 - 1.6 [facility] Comment on above: Performed By: #### 2 88598 #### [facility],[address] [place] [address] 03997 ALK PHOS 175 U/L High 46 - 116 [facility] Comment on above: Performed By: #### 2 41878 #### [facility],[address] [place] [address] 66060 ALT [Catalytic activity/Vol] 65 U/L High 16 - 63 [facility] Comment on above: Performed By: #### 2 02107 #### [facility],[address] [place] [address] 25688 Anion gap [Moles/Vol] 18 mmol/L Normal 10 - 20 [facility] Comment on above: Performed By: #### 2 56198 #### [facility],[address] [place] [address] 83365 AST [Catalytic activity/Vol] 23 U/L Normal 13 - 39 [facility] Comment on above: Performed By: #### 2 45892 #### [facility],[address] [place] [address] 65976 B/C RATIO 12 ratio Normal 0 - 30 [facility] Comment on above: Performed By: #### 2 61636 #### [facility],[address] [place] [address] 69284 Bilirubin [Mass/Vol] 0.7 mg/dL Normal 0.2 - 1.0 [facility] Comment on above: Performed By: #### 2 60781 #### [facility],[address] [place] [address] 44265 Calcium [Mass/Vol] 9.7 mg/dL Normal 8.5 - 10.1 [facility] Comment on above: Performed By: #### 2 03523 #### [facility],[address] [place] [address] 48055 Chloride [Moles/Vol] 94 mmol/L Low 98 - 107 [facility] Comment on above: Performed By: #### 2 21718 #### [facility],[address] [place] [address] 11229 CMP with eGFR Normal [facility] Comment on above: Result Comment: COMP REHENSIVE METABOLIC PANEL Performed By: #### 2 89533 #### [facility],[address] [place] [address] 63445 CO2 [Moles/Vol] 25.4 mmol/L Normal 21.0 - 32.0 [facility] Comment on above: Performed By: #### 2 46778 #### [facility],[address] [place] [address] 27977 Creatinine [Mass/Vol] 1.72 mg/dL High 0.55 - 1.02 [facility] Comment on above: Performed By: #### 2 15862 #### [facility],[address] [place] [address] 51062 eGFR 33 ML/MINUTE Low 60 - 999 [facility] Comment on above: Performed By: #### 2 65814 #### [address] [address] eGFR(AA) 40 ML/MINUTE Low 60 - 999 [facility] Comment on above: Result Comment: ACCO RDING TO THE NATIONAL KIDNEY DISEASE EDUCATION PROGRAM(NKDE), A NORMAL eGFR IS A VALUE GREATER THAN OR EQUAL TO 60 ML/MIN/1.73 SQ METERS. CHRONIC KIDNEY DISEASE: <60mL/MIN/1.73 SQ METERS KIDNEY FAILURE: <15mL/MIN/1.73 SQ METERS THIS TEST SHOULD ONLY BE USED FOR PATIENTS 18 YEARS OF AGE AND OLDER. Performed By: #### 2 03845 #### [address] [address] Globulin (S) [Mass/Vol] 6.6 g/dL High 1.5 - 3.8 [facility] Comment on above: Performed By: #### 2 61567 #### [address] [address] Glucose [Mass/Vol] 245 mg/dL High 74 - 106 [facility] Comment on above: Performed By: #### 2 42947 #### [place] [id number] Potassium [Moles/Vol] 2.3 mmol/L Critically low 3.5 - 5.1 [facility] Comment on above: Result Comment: { CA LLED TO NATHANAEL REDMOND BY LMM @ 0937 { READ BACK BY NATHANAEL REDMOND RA 0922 Performed By: #### 2 37502 #### [address] [address] Protein [Mass/Vol] 9.7 g/dL High 6.4 - 8.2 [facility] Comment on above: Performed By: #### 2 34162 #### [place] [id number] Sodium [Moles/Vol] 135 mmol/L Low 136 - 145 [facility] Comment on above: Performed By: #### 2 81636 #### [facility],[address] [place] [address] 17171 Urea nitrogen [Mass/Vol] 21 mg/dL High 7 - 18 [facility] Comment on above: Performed By: #### 2 94584 #### [facility],[address] [place] [address] CONSULT PROGon 10-09-2024 CONSULT PROG HNO ID: [id number] Author: MORENA ALLEN RPh Service: Pharmacy Author [...] vancomycin level was 11.1 mcg/mL drawn at 1 on 10/09/24. This is a 25 hour [...] Date/Time Value 10/09/20242039 11.1 08/22/20242024 12.7 Morena Allen [facility] CT ABDOMEN/PELVIS WO 10-09 CT ABDOMEN/PELVIS WO [place] [address] Patient: DALY EVANS Phone#: : 1985 Age: 39 Gender: F Pt. Type: ER Account: [id number] Location: 2 Ordering: FARZANEH DELATORRE Exam Date: 10/09/2024/10:19 Family Phys: MAGGIE PUTNAM Charge Code: 858439 Physician: Nicollet Order #: [id number] Dose#: 13.40 mGy PROCEDURE: CT ABDOMEN/PELVIS WITHOUT CONTRAST COMPARISON: [facility], CT, ABDOMEN/PELVIS W CON, 09/17/2024, 5:25. INDICATIONS: [...] 39 Gender: F Pt. Type: ER Account: [id number] Location: [facility] Ordering: FARZANEH DELATORRE Exam Date: 10/09/2024/10:19 Family Phys: MAGGIE INDY Charge Code: 335000 Physician: Nicollet Order #: [id number] Dose#: 13.40 mGy 2. No appreciable acute intra-abdominal or pelvic abnormality within the limits of a noncontrast exam. Dictated by: Alicia Maya MD on 10/09/2024 at 10:49 Approved by: Alicia Maya MD on 10/09/2024 at 10:57 Normal [facility] Creatinine + eGFR Pnl SerPlB ldon 10-09-2024 Creatinine and Glomerular filtration rate.predicted panel (S/P/Bld) 74 mL/min/1.73m??? Normal >=60 [facility] Comment on above: Order Comment: Speci men Type: BLOOD SPECIMEN Ordering Facility: [facility] Address: [address] [id number] Result Comment: Zeny mated Glomerular Filtration Rate [...] GFR. Performed By: #### 4 5066-8 #### [facility] CLIA [id number] [address] [place] [address] Creatinine and Glomerular fi ltration rate.predicted panel (S/P/Bld)on 10-09-2024 Creatinine [Mass/Vol] 0.99 mg/dL High 0.51-0.95 [facility] Comment on above: Order Comment: Speci men Type: BLOOD SPECIMEN Ordering Facility: [facility] Address: [address] [place] [address] Result Comment: Marissa ents receiving either N-Acetylcysteine (NAC) or Metamizole prior to venipuncture, may have falsely depressed results. Performed By: #### 4 5066-8 #### [facility] CLIA [id number] [address] [place] [address] STATES OF [facility] ED MED ADMINISTRATION DETAIL on 10-09-2024 ED MED ADMINISTRATION DETAIL Certified Nuclear Medicine Technologist Medication Administration Record [address] [address] [id number] 10/09/2024 Patient: DALY EVANS Sex: Female : 1985 Age: 39y MEASUREMENTS: Wt: 90.7 kg, Ht/Jean-Paul: 67.0 in, BMI: 31.32 ALLERGIES: [place] Medication Ordered Medication Administration Date/Time Zofran IVP 4 mg 08:53 10/09 Zofran IVP 4 mg given via Site# 1. Allergies verified Given (NOW x1) and confirmed 5 rights. IV patency established. IV site checked: no 08:53 10/09/2024 pain, redness, or swelling. IV flushed thoroughly pre-medication Ariella Santamaria, R.N. administration. IVP given by nurse. Information [...] with patient including reason for taking this 10:10/09/2024 medication. - 08:59 Shameka Sheehan R.N. Scanned 10:10/09 Medication Discontinued: bag #1 infused. Total amount infused: 1000 mL. IV patency established. IV site checked: no pain, redness, or swelling. IV flushed thoroughly post-medication administration. - 10:31 Ariella Santamaria R.N. 1 of 4 Certified Nuclear Medicine Technologist Medication Ordered Medication Administration Date/Time Reglan IVP [...] 13:35 Ariella Santamaria R.N. 2 of 4 Certified Nuclear Medicine Technologist Medication Ordered Medication Administration Date/Time Haloperidol IVP [...] 13:29 Johnathan (more content not included)... Normal [facility] ED NURSES CLINICAL NOTEon ED NURSES CLINICAL NOTE Nurse Narrative Nurse Clinical Narrative [address] [address] [id number] 10/09/2024 08:13:00 Patient: DALY EVANS Sex: Female : 1985 Age: 39y Disposition: Transfer to [facility] Disposition Decision Time: 12:52 10/09/2024 Departure Time: 15:44 10/09/2024 TRIAGE Arrived by EMS. Historian: (care home records and patient). Primary physician (Krystian). Triage time: 08:21 10/09/2024. Acuity: LEVEL 2. Chief Complaint: ACCIDENTAL INGESTION (Pt received 115mg of methadone from a nurse at the care home that was not prescribed to her.). This occurred today. ( n/v; dizziness). SEPSIS SCREEN: NEGATIVE. SIRS criteria negative: heart rate greater than 90. No possible sources of infection. -- 08:35 10/09/24 EDT Jessica Vidales R.N. 08:34 10/09/24. BP: 111/81 MAP: 91. HR: 114. RR: 10. O2 saturation: 96% Temperature: 98.8 F (oral). Pain level now 0/10. -- 08:34 10/09/24 EDT Jessica Vidales R.N. Measurements: 08:33 10/09/24 Wt: 90.7 kg, Ht/Jean-Paul: 67.0 in, BMI: 31.32 -- 08:34 10/09/24 CHARLY Vidales R.N. Medications: enoxaparin 100 mg/mL subcutaneous syringe: twice a day. (give per [place] MAR dose of 0.95ml) -- 09:10/09/24 CHARLY [...] through eRx -- :10/09/24 CHARLY Vidales R.N. pantoprazole 40 mg tablet,delayed [...] through eRx -- :10/09/24 CHARLY Vidales R.N. ferrous sulfate 325 mg (65 mg iron) tablet -- 09:10/09/24 CHARLY Vidales R.N.Updated through eRx -- :10/09/24 CHARLY Vidales R.N. escitalopram 20 mg tablet [...] R.N. 2 of 8 Nurse Narrative Allergies: [place] -- 08:31 10/09/24 [place] Jessica Vidales R.N. Home Medications/Allergy Information Source: patient, care home record -- 08:28 10/09/24 CHARLY Vidales R.N. Problems: Depression -- 08:31 10/09/24 CHARLY Vidales R.N. Diabetes Mellitus -- 08:31 10/09/24 [place] Jessica Vidales R.N. 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 Monoclonal gammopathy (clinical) -- 08:51 10/09/24 CHARLY Vidales R.N. Thrombophilia -- 08:59 10/09/24 CHARLY Vidales R.N. Hyperlipidemia -- 08:59 10/09/24 [place] Jessica Vidales R.N. embolism and thrombosis of thoracic aorta -- 09:00 10/09/24 CHARLY Vidales R.N. 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 Iron deficiency anemia -- 09:02 (more content not included)... Normal [facility] ED ORDER SHEET (CPOE ONLY)on 10-09-2024 ED ORDER SHEET (CPOE ONLY) Order Sheet Order Sheet [address] [address] [id number] 10/09/2024 Patient: DALY EVANS Sex: Female : 1985 Age: 39y MEASUREMENTS: Wt: 90.7 kg, Ht/Jean-Paul: 67.0 in, BMI: 31.32 ALLERGIES: [place] MEDICATION/IV/DRIP/FLUID ORDERS Order Description Priority Entered Acknowledged Completed Zofran IVP4 mg (NOW x1) 08:23 10/09/2024 08:40 08:55 Farzaneh Delatorre D.O. 10/09/2024 10/09/2024 Ariella Sheehan, Dano.N. R.N. IV NS 0.9 %1000 mL at 999 08:32 10/09/2024 08:40 08:59 mL/hr (NOW x1) Farzaneh Delatorre D.O. 10/09/2024 10/09/2024 Ariella Sheehan R.N. R.N. Reglan IVP10 mg (NOW x1) 09:45 10/09/2024 09:46 09:50 Farzaneh Delatorre D.O. 10/09/2024 10/09/2024 Ariella Sheehan, Dano.N. R.N. Reason for ordering with alerts: Benefits [...] Farzaneh Delatorre D.O. 10/09/2024 10/09/2024 Ariella Sheehan, Dano.N. R.N. Reason for ordering with alerts: Clinical consideration given --10:28 10/09/2024 Farzaneh Delatorre D.O. Haloperidol IVP2 mg (NOW x1) 10:29 10/09/2024 10:30 12:21 Farzaneh Delatorre D.O. 10/09/2024 10/09/2024 Ariella Sheehan R.N. RIrene Reason for ordering with alerts: Clinical consideration [...] Farzaneh Delatorre, 2 of 5 Order Sheet DDee Haloperidol IVP2 mg 12:19 10/09/2024 12:24 Farzaneh [...] l Farzaneh Delatorre D.O. 10/09/2024 10/09/2024 IVPB [id number] mEq at 50 mL/hr Ariella Sheehan, (NOW x1, HIGH ALERT R.N. R.N. MEDICATION) potassium 14:42 10/09/2024 Cancelled: Patient Off Unit chloride(K-Philip)20mEq/100m l Farzaneh Delatorre D.O. 16:22 EDT Ariella Santamaria R.N. IVPB [id number] mEq at 50 mL/hr (NOW x1, HIGH [...] Ariella Harrington Natalie Yoder, D.O. R.NPriscila R.N. Haloperidol [CCL] Stat Stat 12:18 10/09/2024 12:24 10/09/2024 12:24 10/09/2024 Ariella Harrington, Na (more content not included)... Normal [facility] ED PHYSICIAN CLINICAL REPORT on 10-09-2024 ED PHYSICIAN CLINICAL REPORT Narrative Physician Clinical Narrative [address] [place] [address] [id number] 10/09/2024 08:13:00 Patient: DALY EVANS Sex: Female : 1985 Age: 39y Disposition: Transfer to [facility] Disposition Decision Time: 12:52 10/09/2024 Measurements Wt: [...] subcutaneous syringe: twice a day. (give per [place] MAR dose of 0.95ml) escitalopram 20 mg [...] piggyback: 1500 mg twice a day. Allergies: [facility] Medications/Allergy Information Source: patient, care home record - Jessica Vidales R.N., 10/09/2024 [...] 37.0 % 34.0 - 46.0 Final EDT Narrative Lab Test Result Reference Status Received [...] 450 Fi (more content not included)... Normal [facility] ED SUPER BILLon 10-09-2024 ED SUPER BILL [facility] [address] [place] [address] [id number] 10/09/2024 Patient: DALY EVANS Sex: Female : 1985 Age: 39y Facility Professional Category Item Description Code Code Quantity Fee Total Nurse/E/M EMERGENCY 877695 1 $0.00 $0.00 DEPT VISIT HIGH SEVERITYFUNCJ (65621-38) Nurse/IV/IM/Infusions Drip/IVPB initial 322498 1 $0.00 $0.00 (54494) Nurse/IV/IM/Infusions Drip/IVPB seq 595678 2 $0.00 $0.00 (34545) Nurse/IV/IM/Infusions Hydration 310663 1 $0.00 $0.00 additional hour (92856) Nurse/IV/IM/Infusions IVP additional 991621 2 $0.00 $0.00 push (41632) Nurse/IV/IM/Infusions IVP initial (81125) 327719 1 $0.00 $0.00 Grand $0.00 Total Providers Farzaneh Delatorre D.O. 1 of 2 Superbil Chief Complaint DRUG OVERDOSE. Principal Diagnosis Accidental overdose with methadone. Occult and minor GI bleed. Moderate acute renal failure. Hyperglycemia. Hypokalemia. Hypomagnesemia. ICD-10 Codes T40.3X1A: Poisoning by methadone, accidental (unintentional), initial encounter N19: Unspecified kidney failure N17.9: Acute kidney failure, unspecified E83.42: Hypomagnesemia E87.6: Hypokalemia K52.9: Noninfective gastroenteritis and colitis, unspecified R73.9: Hyperglycemia, unspecified K92.2: Gastrointestinal hemorrhage, unspecified 2 of 2 Normal [facility] ED VISIT SUMMARYon ED VISIT SUMMARY Visit Overview Visit Overview [address] [address] [id number] 10/09/2024 Patient: DALY EVANS Sex: Female : 1985 Age: 39y 10/09/2024 04:30 PM EDT ED Arrival:08:13 10/09/2024 EDT Status:not Recent Travel:no Language:eng Adv Directive: Isolation Status: Ethnicity:N Fall Risk:risk Infectious Disease Exposure:no Measurements:5'7 / 170.2 Self-Harm Status:risk Sepsis Screen:negative cm 200.0 lb / 90.7 kg Chief Complaint:ACCIDENTAL INGESTION, ([place]), (n/v; dizziness), and (Pt received 115mg of methadone from a nurse at the care home that was not prescribed to her. ) ALLERGIES [place] [facility] MEDICATIONS acetaminophen 325 mg chewable tablet: 1 tablet every six hours as needed. aspirin 81 mg chewable tablet: 1 tablet once a day. atorvastatin 40 mg tablet: 1 tablet once a day. Visit Overview enoxaparin 100 mg/mL subcutaneous syringe: twice a day. (give per [place] MAR dose of 0.95ml) escitalopram 20 mg [...] MINOR GI BLEED 4 of 4 Normal [facility] ED VITALS FLOW SHEETon 10-09 ED VITALS FLOW SHEET Vitals Vital Sign Flow Sheet [facility] [address] [place] [address] [id number] 10/09/2024 Patient: DALY EVANS Sex: Female : [...] 10:10/09/2024 97 97% 10:22 10/09/2024 108 98% 10:10/09/2024 91/63 72 89 10:17 10/09/2024 94 94% [...] 10/09/2024 111 96% 4 of 4 Normal [facility] HISTORY PHYSICALon HISTORY PHYSICAL HNO ID: [id number] Author: ROSA MARIA BULLOCK MD Service: General [...] Lovenox, status post colostomy who presented to [facility] ED for accidental overdose. Patient resides in a nursing facility, approximately 1 month ago was taken to [facility] for colostomy after developing bowel obstruction. [...] suicide (HCC) polysubstance Bipolar depression (HCC) [facility] Camelia Joyman Gestational diabetes mellitus in ([facility]) Impaired fasting blood sugar 06/2015 a1c [...] Patient ta (more content not included)... Normal [facility] MAGNESIUMon 10-09-2024 Magnesium [Mass/Vol] 1.5 mg/dL Low 1.8 - 2.4 [facility] Comment on above: Performed By: #### 2 26311 #### [facility],[address] [place], [place] [id number] OCCULT BLOOD GASTRICon 10-09 OCCULT BLOOD GASTRIC Normal [facility] Comment on above: Result Comment: { OC CULT BLOOD POSITIVE (NEGATIVE ) { SPECIMEN GASTRIC ASPIRATE Performed By: #### 2 42990 #### [facility],[address] [place] [address] pH (Bld) 4 [pH] Normal [facility] Comment on above: Performed By: #### 2 77874 #### [facility],[address] [place] [address] PROTHROMBIN TIME AND INRon 0 10-09-2024 INR Coag (PPP) [Relative time] 1.3 {INR} High 0.8 - 1.2 [facility] Comment on above: Result Comment: T [...] MECHANICAL HEART VALVES Performed By: #### 2 25361 #### [facility],[address] [place], [place] [address] PROTHROMBIN TIME AND INR Normal [facility] Comment on above: Result Comment: PROT HROMBIN TIME AND INR Performed By: #### 2 09646 #### [facility],[address] [place], [place] [id number] PT-COUMADIN 14.2 sec High 9.3 - 14.1 [facility] Comment on above: Performed By: #### 2 20552 #### [facility],[address] [place], [place] [id number] TROPONINon 10-09-2024 HS TROPONIN 6.2 pg/mL Normal 0.0 - 51.4 [facility] Comment on above: Performed By: #### 2 13060 #### [facility],[address] [place], [place] [id number] US KIDNEY/BLADDERon 10-10-19 25 US KIDNEY/BLADDER * * *Final Report* * * DATE OF EXAM: Oct 09 2024 7:04PM [facility] 1055 - US KIDNEY/BLADDER / PROCEDURE [...] the bladder lumen; please correlate with urinalysis. Athletics Director: NANCY Transcribe Date/Time: Oct 10 2024 4:59A Dictated by : CHRISTIAN LEE MD This examination was interpreted and the report reviewed and electronically signed by: CHRISTIAN LEE MD on Oct 10 2024 5:02AM EST [id number] Normal [facility] Vancomycin [place] SerPl-mCncon 10-09-2024 Vancomycin random [Mass/Vol] 11.1 ug/mL Normal 10.0-25.0 [facility] Comment on above: Order Comment: Speci men Type: BLOOD SPECIMEN Ordering Facility: [facility] Address: [address] [place] [address] Result Comment: Refe rence ranges and high/low indicator flags are provided as general guidelines only. The treating physician must determine appropriate target levels/dosing based on the specific clinical situation. Performed By: #### 4 091-5 #### [facility] CLIA [id number] [facility] [place] [address] [place] CBC + DIFFon 10-04-2024 Baso # 0.02 x10EE3/UL Normal 0.00 - 0.10 [facility] Comment on above: Performed By: #### 2 84360 #### [address] [address] Basophils/100 WBC (Bld) 0.3 % Normal 0.0 - 2.0 [facility] Comment on above: Performed By: #### 2 67912 #### [facility],[address] [place] [address] CBC + DIFF Normal [facility] Comment on above: Result Comment: CBC- COMPLETE BLOOD COUNT Performed By: #### 2 50127 #### [facility],[address] [place] [address] EO # 0.16 x10EE3/UL Normal 0.00 - 0.50 [facility] Comment on above: Performed By: #### 2 61247 #### [facility],[address] [place] [address] Eosinophils/100 WBC (Bld) 2.7 % Normal 0.0 - 7.0 [facility] Comment on above: Performed By: #### 2 94011 #### [facility],[address] [place], [place] [id number] Erythrocyte distribution width (RBC) [Ratio] 15.9 % High 12.0 - 15.6 [facility] Comment on above: Performed By: #### 2 06259 #### [facility],[address] [place], [place] [address] Hematocrit (Bld) [Volume fraction] 29.2 % Low 34.0 - 46.0 [facility] Comment on above: Performed By: #### 2 03812 #### [facility],[address] [place] [address] Hemoglobin (Bld) [Mass/Vol] 9.7 g/dL Low 12.0 - 16.0 [facility] Comment on above: Performed By: #### 2 67746 #### [facility],[address] [place] [address] Lymph # 2.40 x10EE3/UL Normal 0.80 - 2.80 [facility] Comment on above: Performed By: #### 2 34956 #### [facility],[address] [place] [address] Lymphocytes/100 WBC (Bld) 39.2 % Normal 20.0 - 45.0 [facility] Comment on above: Performed By: #### 2 05396 #### [facility],[address] [place] [address] MANUAL DIFF N/A Normal [facility] Comment on above: Performed By: #### 2 60738 #### [facility],[address] [place] [address] MCH (RBC) [Entitic mass] 26 pg Low 27 - 33 [facility] Comment on above: Performed By: #### 2 05601 #### [facility],[address] [place] [address] MCHC 33 X10 3 Normal 32 - 36 [facility] Comment on above: Performed By: #### 2 48196 #### [facility],[address] [place] [address] MCV (RBC) [Entitic vol] 77 fL Low 80 - 99 [facility] Comment on above: Performed By: #### 2 60227 #### [facility],[address] [place] [address] [place] # 0.56 x10EE3/UL Normal 0.20 - 1.00 [facility] Comment on above: Performed By: #### 2 91510 #### [facility],[address] [place] [address] MONOS % 9.2 % Normal 0.0 - 10.0 [facility] Comment on above: Performed By: #### 2 11019 #### [facility],[address] [place] [address] Morphology Stan (Bld) [Interp] N/A Normal [facility] Comment on above: Performed By: #### 2 97208 #### [facility],[address] [place] [address] Neut # 2.99 x10EE3/UL Normal 1.50 - 7.10 [facility] Comment on above: Performed By: #### 2 22810 #### [facility],[address] [place] [address] Neutrophils/100 WBC (Bld) 48.7 % Normal 46.0 - 76.0 [facility] Comment on above: Performed By: #### 2 04400 #### [facility],[address] [place], [place] [id number] PLATELET 504 x10EE3/UL High 150 - 450 [facility] Comment on above: Performed By: #### 2 95132 #### [facility],[address] [place] [address] Platelet mean volume (Bld) [Entitic vol] 7.8 fL Normal 6.6 - 10.5 [facility] Comment on above: Result Comment: AUTO MATED DIFFERENTIAL Performed By: #### 2 96180 #### [place] [address] RBC 3.79 x 10EE6/UL Low 4.10 - 5.30 [facility] Comment on above: Performed By: #### 2 08792 #### [facility],[address] [place], [place] [address] WBC 6.1 x 10EE3/UL Normal 4.5 - 10.8 [facility] Comment on above: Performed By: #### 2 70867 #### [facility],[address] [place] [address] VANCOMYCIN TROUGHon 10-04-19 25 VANCOMYCIN,TROUGH 11.5 ug/mL High 5.0 - 10.0 [facility] Comment on above: Performed By: #### 2 95836 ####[facility],[address] [place], [place] [address] CBC W Ordered Manual Differe ntial panel (Bld)on 10-02-2024 Basophils (Bld) [#/Vol] 0.04 10*3/uL NINF [facility] Basophils/100 WBC (Bld) 0.5 % [facility] Differential cell count method Nom (Bld) Auto [facility] Eosinophils (Bld) [#/Vol] 0.14 10*3/uL [facility] Eosinophils/100 WBC (Bld) 1.9 % [facility] Erythrocyte distribution width (RBC) [Ratio] 15.7 % High 11.5 - 15.0 % [facility] Hematocrit (Bld) [Volume fraction] 30.2 % Low 36.0 - 46.0 % [facility] Hemoglobin (Bld) [Mass/Vol] 9.2 g/dL Low 11.5 - 15.5 g/dL [facility] Immature granulocytes (Bld) [#/Vol] [facility] Immature granulocytes/100 WBC (Bld) 0.3 % [facility] Interpretation and review of laboratory results Abnormal [facility] Lymphocytes (Bld) [#/Vol] 2.27 10*3/uL [facility] Lymphocytes/100 WBC (Bld) 30.5 % [facility] MCH (RBC) [Entitic mass] 24.2 pg Low 26.0 - 34.0 pg [facility] MCHC (RBC) [Mass/Vol] 30.5 g/dL 30.5 - 36.0 g/dL [facility] MCV (RBC) [Entitic vol] 79.5 fL Low 80.0 - 100.0 fL [facility] Monocytes (Bld) [#/Vol] 0.53 10*3/uL [facility] Monocytes/100 WBC (Bld) 7.1 % [facility] Neutrophils (Bld) [#/Vol] 4.44 10*3/uL [facility] Neutrophils/100 WBC (Bld) 59.7 % [facility] Nucleated RBC (Bld) [#/Vol] [facility] Nucleated RBC/100 WBC (Bld) [Ratio] 0 % /100 WBC [facility] Platelet mean volume (Bld) [Entitic vol] 9 fL 9.0 - 12.7 fL [facility] Platelets (Bld) [#/Vol] 443 10*3/uL High [facility] RBC (Bld) [#/Vol] 3.8 10*6/uL Low 3.90 - 5.2 0 m/uL [facility] WBC (Bld) [#/Vol] 7.44 10*3/uL [facility] This is an appended report. These results have been appended to a previously verified report. [facility] IMMUNOGLOBULINS,IGG,IGA,IGMo n 10-02-2024 IgA [Mass/Vol] 324 mg/dL 70 - 400 mg/dL [facility] IgG [Mass/Vol] 2708 mg/dL High 700 - 1600 mg/dL [facility] IgM [Mass/Vol] 99 mg/dL 40 - 230 mg/dL [facility] Interpretation and review of laboratory results Abnormal [facility] LMW ANTI XA ASSAYOrdered By: Yoseph Urban on 10-02-2024 LMW Heparin Qn (PPP) 0.[address] [facility] Comment on above: Therapeutic Range: 0 .5 to 1.1 IU/mL ([facility] Med 1998: 122:799 to 807). LMW Heparin Qn (PPP)Ordered By: Yoseph Urban on 10-02-2024 Interpretation and review of laboratory results Abnormal [facility] Frozen Plasma Aliquo t [facility] PATHOLOGIST INTERPRETATION C BC/DIFFOrdered By: Jaden Sr on 10-02-2024 Hospital Product Specialist review Stan (Unsp spec) [Interp] No review performed. [facility] Pathologist Interpretation, CBCDIF The Pathologist Interpretation on this sample was cancelled because the hematology analyzer did not flag any parameters as requiring manual review. If there is a specific clinical concern for which you would like a pathologist to review the blood smear, please call Lab Client Services within 28 days. Account Credited [facility] CMP with eGFRon 10-01-2024 AGE 39 years Normal [facility] Comment on above: Performed By: #### 2 45969 ####[facility],[address] [place] [address] Albumin [Mass/Vol] 1.8 g/dL Low 3.4 - 5.0 [facility] Comment on above: Performed By: #### 2 99384 ####[address] [address] Albumin/Globulin [Mass ratio] 0.4 {ratio} Low 0.9 - 1.6 [facility] Comment on above: Performed By: #### 2 64635 ####[facility],[address] [place] [address] ALK PHOS 114 U/L Normal 46 - 116 [facility] Comment on above: Performed By: #### 2 42003 ####[facility],[address] [place], [place] [id number] ALT [Catalytic activity/Vol] 79 U/L High 16 - 63 [facility] Comment on above: Performed By: #### 2 20993 ####[facility],[address] [place] [address] Anion gap [Moles/Vol] 10 mmol/L Normal 10 - 20 [facility] Comment on above: Performed By: #### 2 29777 ####[facility],[address] [place], [place] [id number] AST [Catalytic activity/Vol] 34 U/L Normal 13 - 39 [facility] Comment on above: Performed By: #### 2 54342 ####[facility],[address] [place], [place] [id number] B/C RATIO 21 ratio Normal 0 - 30 [facility] Comment on above: Performed By: #### 2 93430 ####[facility],[address] [place] [address] Bilirubin [Mass/Vol] 0.5 mg/dL Normal 0.2 - 1.0 [facility] Comment on above: Performed By: #### 2 65774 ####[facility],[address] [place], [place] [id number] Calcium [Mass/Vol] 7.8 mg/dL Low 8.5 - 10.1 [facility] Comment on above: Performed By: #### 2 73774 ####[facility],[address] [place], [place] [id number] Chloride [Moles/Vol] 105 mmol/L Normal 98 - 107 [facility] Comment on above: Performed By: #### 2 80842 ####[facility],[address] [place], [place] [id number] CMP with eGFR Normal [facility] Comment on above: Result Comment: COMP REHENSIVE METABOLIC PANEL Performed By: #### 2 39007 ####[facility],[address] [place] [address] CO2 [Moles/Vol] 27.9 mmol/L Normal 21.0 - 32.0 [facility] Comment on above: Performed By: #### 2 34094 ####[facility],[address] [place] [address] Creatinine [Mass/Vol] 0.71 mg/dL Normal 0.55 - 1.02 [facility] Comment on above: Performed By: #### 2 64286 ####[facility],[address] [place] [address] GFR/1.73 sq M.predicted among non-blacks MDRD (S/P/Bld) [Vol rate/Area] mL/min/{1.73_m2} Normal 60 - 999 [facility] Comment on above: Performed By: #### 2 64903 ####[facility],[address] [place] [address] Result Comment: ACCO RDING TO THE NATIONAL KIDNEY DISEASE EDUCATION PROGRAM(NKDE), A NORMAL eGFR IS A VALUE GREATER THAN OR EQUAL TO 60 ML/MIN/1.73 SQ METERS. CHRONIC KIDNEY DISEASE: <60mL/MIN/1.73 SQ METERS KIDNEY FAILURE: <15mL/MIN/1.73 SQ METERS THIS TEST SHOULD ONLY BE USED FOR PATIENTS 18 YEARS OF AGE AND OLDER. Globulin (S) [Mass/Vol] 5.1 g/dL High 1.5 - 3.8 [facility] Comment on above: Performed By: #### 2 44444 ####[facility],[address] [place], [place] [id number] Glucose [Mass/Vol] 170 mg/dL High 74 - 106 [facility] Comment on above: Performed By: #### 2 19184 ####[facility],[address] [place], [place] [id number] Potassium [Moles/Vol] 3.7 mmol/L Normal 3.5 - 5.1 [facility] Comment on above: Performed By: #### 2 88960 ####[facility],[address] [place] [address]61 Protein [Mass/Vol] 6.9 g/dL Normal 6.4 - 8.2 [facility] Comment on above: Performed By: #### 2 46108 ####[facility],[address] [place] [address] Sodium [Moles/Vol] 139 mmol/L Normal 136 - 145 [facility] Comment on above: Performed By: #### 2 94830 ####[facility],[address] [place], [place] [id number] Urea nitrogen [Mass/Vol] 15 mg/dL Normal 7 - 18 [facility] Comment on above: Performed By: #### 2 68374 ####[facility],[address] [place] [address] 08759 MAGNESIUMon 10-01-2024 Magnesium [Mass/Vol] 1.8 mg/dL Normal 1.8 - 2.4 [facility] Comment on above: Performed By: #### 2 30591 #### [facility],[address] [place] [address] 82893 PHOSPHORUSon 10-01-2024 Phosphate [Mass/Vol] 3.6 mg/dL Normal 2.6 - 4.7 [facility] Comment on above: Performed By: #### 2 15195 ####[facility],[address] [place] [address] 66076 VANCOMYCIN TROUGHon 10-02-19 25 VANCOMYCIN,TROUGH 10.8 ug/mL High 5.0 - 10.0 [facility] Comment on above: Performed By: #### 2 19132 ####[facility],[address] [place] [address] 34808 VANCOMYCIN TROUGHon 09-29-19 25 VANCOMYCIN,TROUGH 9.6 ug/mL Normal 5.0 - 10.0 [facility] Comment on above: Performed By: #### 2 04126 #### [facility],[address] [place] [address] CBC + DIFFon 09-27-2024 Baso # 0.03 x10EE3/UL Normal 0.00 - 0.10 [facility] Comment on above: Performed By: #### 2 49477 ####[facility],[address] [place], [place] [id number] Basophils/100 WBC (Bld) 0.5 % Normal 0.0 - 2.0 [facility] Comment on above: Performed By: #### 2 16941 ####[facility],[address] [place] [address] CBC + DIFF Normal [facility] Comment on above: Result Comment: CBC- COMPLETE BLOOD COUNT Performed By: #### 2 47340 ####[facility],[address] [place] [address] EO # 0.16 x10EE3/UL Normal 0.00 - 0.50 [facility] Comment on above: Performed By: #### 2 35503 ####[facility],[address] [place], [place] [id number] Eosinophils/100 WBC (Bld) 2.4 % Normal 0.0 - 7.0 [facility] Comment on above: Performed By: #### 2 51329 ####[facility],[address] [place], [place] [id number] Erythrocyte distribution width (RBC) [Ratio] 16.7 % High 12.0 - 15.6 [facility] Comment on above: Performed By: #### 2 40564 ####[facility],[address] [place] [address] Hematocrit (Bld) [Volume fraction] 27.6 % Low 34.0 - 46.0 [facility] Comment on above: Performed By: #### 2 33559 ####[facility],[address] [place] [address] 01128 Hemoglobin (Bld) [Mass/Vol] 8.8 g/dL Low 12.0 - 16.0 [facility] Comment on above: Performed By: #### 2 13994 ####[facility],[address] [place] [address] 22041 Lymph # 1.44 x10EE3/UL Normal 0.80 - 2.80 [facility] Comment on above: Performed By: #### 2 14490 ####[facility],[address] [place] [address] 02123 Lymphocytes/100 WBC (Bld) 21.3 % Normal 20.0 - 45.0 [facility] Comment on above: Performed By: #### 2 88914 ####[facility],[address] [place], [place] [id number] MANUAL DIFF N/A Normal [facility] Comment on above: Performed By: #### 2 92943 ####[facility],[address] [place] [address] 01628 MCH (RBC) [Entitic mass] 25 pg Low 27 - 33 [facility] Comment on above: Performed By: #### 2 65231 ####[facility],[address] [place] [address] 22837 MCHC 32 X10 3 Normal 32 - 36 [facility] Comment on above: Performed By: #### 2 21049 ####[facility],[address] [place] [address] 21680 MCV (RBC) [Entitic vol] 79 fL Low 80 - 99 [facility] Comment on above: Performed By: #### 2 62241 ####[facility],[address] [place] [address] 66088 [place] # 0.61 x10EE3/UL Normal 0.20 - 1.00 [facility] Comment on above: Performed By: #### 2 79225 ####[facility],[address] [place] [address] 42127 MONOS % 9.1 % Normal 0.0 - 10.0 [facility] Comment on above: Performed By: #### 2 80485 ####[facility],[address] [place] [address] 19526 Morphology Stan (Bld) [Interp] N/A Normal [facility] Comment on above: Performed By: #### 2 33167 ####[facility],[address] [place] [address] 15981 Neut # 4.51 x10EE3/UL Normal 1.50 - 7.10 [facility] Comment on above: Performed By: #### 2 08959 ####[facility],[address] [place] [address] 78237 Neutrophils/100 WBC (Bld) 66.8 % Normal 46.0 - 76.0 [facility] Comment on above: Performed By: #### 2 82436 ####[facility],[address] [place] [address] 07793 PLATELET 543 x10EE3/UL High 150 - 450 [facility] Comment on above: Performed By: #### 2 35971 ####[facility],[address] [place] [address] 23497 Platelet mean volume (Bld) [Entitic vol] 7.9 fL Normal 6.6 - 10.5 [facility] Comment on above: Result Comment: AUTO MATED DIFFERENTIAL Performed By: #### 2 50254 ####[facility],[address] [place] [address] 63339 RBC 3.51 x 10EE6/UL Low 4.10 - 5.30 [facility] Comment on above: Performed By: #### 2 71859 ####[facility],[address] [place] [address] 86336 WBC 6.8 x 10EE3/UL Normal 4.5 - 10.8 [facility] Comment on above: Performed By: #### 2 88783 ####[facility],[address] [place] [address] 00625 CMP with eGFRon 09-27-2024 AGE 39 years Normal [facility] Comment on above: Performed By: #### 2 32746 ####[facility],[address] [place] [address] 52154 Albumin [Mass/Vol] 1.8 g/dL Low 3.4 - 5.0 [facility] Comment on above: Performed By: #### 2 46752 ####[facility],[address] [place] [address] 81985 Albumin/Globulin [Mass ratio] 0.3 {ratio} Low 0.9 - 1.6 [facility] Comment on above: Performed By: #### 2 89536 ####[facility],[address] [place] [address] 53489 ALK PHOS 131 U/L High 46 - 116 [facility] Comment on above: Performed By: #### 2 92196 ####[facility],[address] [place] [address] 88898 ALT [Catalytic activity/Vol] 90 U/L High 16 - 63 [facility] Comment on above: Performed By: #### 2 76500 ####[facility],[address] [place] [address] 16416 Anion gap [Moles/Vol] 10 mmol/L Normal 10 - 20 [facility] Comment on above: Performed By: #### 2 64377 ####[facility],[address] [place] [address] 87991 AST [Catalytic activity/Vol] 40 U/L High 13 - 39 [facility] Comment on above: Performed By: #### 2 02593 ####[facility],[address] [place] [address] 24379 B/C RATIO 20 ratio Normal 0 - 30 [facility] Comment on above: Performed By: #### 2 85117 ####[facility],[address] [place] [address] 50024 Bilirubin [Mass/Vol] 0.5 mg/dL Normal 0.2 - 1.0 [facility] Comment on above: Performed By: #### 2 72496 ####[facility],[address] [place] [address] 90390 Calcium [Mass/Vol] 8.1 mg/dL Low 8.5 - 10.1 [facility] Comment on above: Performed By: #### 2 75512 ####[facility],[address] [place] [address] 20383 Chloride [Moles/Vol] 102 mmol/L Normal 98 - 107 [facility] Comment on above: Performed By: #### 2 26950 ####[facility],[address] [place] [address] 89977 CMP with eGFR Normal [facility] Comment on above: Result Comment: COMP REHENSIVE METABOLIC PANEL Performed By: #### 2 34978 ####[facility],[address] [place] [address] 82788 CO2 [Moles/Vol] 26.0 mmol/L Normal 21.0 - 32.0 [facility] Comment on above: Performed By: #### 2 98169 ####[facility],[address] [place] [address] 35637 Creatinine [Mass/Vol] 0.71 mg/dL Normal 0.55 - 1.02 [facility] Comment on above: Performed By: #### 2 71807 ####[facility],[address] [place] [address] 12384 GFR/1.73 sq M.predicted among non-blacks MDRD (S/P/Bld) [Vol rate/Area] mL/min/{1.73_m2} Normal 60 - 999 [facility] Comment on above: Performed By: #### 2 08683 ####[facility],[address] [place] [address] 22150 Result Comment: ACCO RDING TO THE NATIONAL KIDNEY DISEASE EDUCATION PROGRAM(NKDE), A NORMAL eGFR IS A VALUE GREATER THAN OR EQUAL TO 60 ML/MIN/1.73 SQ METERS. CHRONIC KIDNEY DISEASE: <60mL/MIN/1.73 SQ METERS KIDNEY FAILURE: <15mL/MIN/1.73 SQ METERS THIS TEST SHOULD ONLY BE USED FOR PATIENTS 18 YEARS OF AGE AND OLDER. Globulin (S) [Mass/Vol] 5.3 g/dL High 1.5 - 3.8 [facility] Comment on above: Performed By: #### 2 96772 ####[address] [address] Glucose [Mass/Vol] 82 mg/dL Normal 74 - 106 [facility] Comment on above: Performed By: #### 2 94440 ####[address] [address] Potassium [Moles/Vol] 3.6 mmol/L Normal 3.5 - 5.1 [facility] Comment on above: Performed By: #### 2 52868 ####[address] [address] Protein [Mass/Vol] 7.1 g/dL Normal 6.4 - 8.2 [facility] Comment on above: Performed By: #### 2 35807 ####[address] [address] Sodium [Moles/Vol] 134 mmol/L Low 136 - 145 [facility] Comment on above: Performed By: #### 2 95049 ####[address] [address] Urea nitrogen [Mass/Vol] 14 mg/dL Normal 7 - 18 [facility] Comment on above: Performed By: #### 2 83810 ####[address] [address] MAGNESIUMon 09-27-2024 Magnesium [Mass/Vol] 1.9 mg/dL Normal 1.8 - 2.4 [facility] Comment on above: Performed By: #### 2 12747 #### [facility],[address] [place] [address] 26311 BMP with eGFRon 09-25-2024 AGE 39 years Normal [facility] Comment on above: Performed By: #### 2 62381 ####[facility],[address] [place] [address] Anion gap [Moles/Vol] 14 mmol/L Normal 10 - 20 [facility] Comment on above: Performed By: #### 2 77663 ####[facility],[address] [place] [address] 91648 BMP with eGFR Normal [facility] Comment on above: Result Comment: BASI C METABOLIC PANEL Performed By: #### 2 68609 ####[facility],[address] [place], [place] [id number] Calcium [Mass/Vol] 8.5 mg/dL Normal 8.5 - 10.1 [facility] Comment on above: Performed By: #### 2 21488 ####[facility],[address] [place], [place] [id number] Chloride [Moles/Vol] 101 mmol/L Normal 98 - 107 [facility] Comment on above: Performed By: #### 2 48996 ####[facility],[address] [place] [address] 86499 CO2 [Moles/Vol] 23.2 mmol/L Normal 21.0 - 32.0 [facility] Comment on above: Performed By: #### 2 16125 ####[facility],[address] [place] [address] 11732 Creatinine [Mass/Vol] 0.87 mg/dL Normal 0.55 - 1.02 [facility] Comment on above: Performed By: #### 2 70845 ####[place] [address] GFR/1.73 sq M.predicted among non-blacks MDRD (S/P/Bld) [Vol rate/Area] mL/min/{1.73_m2} Normal 60 - 999 [facility] Comment on above: Performed By: #### 2 92996 ####[place] [address] Result Comment: ACCO RDING TO THE NATIONAL KIDNEY DISEASE EDUCATION PROGRAM(NKDE), A NORMAL eGFR IS A VALUE GREATER THAN OR EQUAL TO 60 ML/MIN/1.73 SQ METERS. CHRONIC KIDNEY DISEASE: <60mL/MIN/1.73 SQ METERS KIDNEY FAILURE: <15mL/MIN/1.73 SQ METERS THIS TEST SHOULD ONLY BE USED FOR PATIENTS 18 YEARS OF AGE AND OLDER. Glucose [Mass/Vol] 89 mg/dL Normal 74 - 106 [facility] Comment on above: Performed By: #### 2 57054 ####[place] [id number] Potassium [Moles/Vol] 4.6 mmol/L Normal 3.5 - 5.1 [facility] Comment on above: Performed By: #### 2 48682 ####[place] [id number] Sodium [Moles/Vol] 134 mmol/L Low 136 - 145 [facility] Comment on above: Performed By: #### 2 97406 ####[place] [id number] Urea nitrogen [Mass/Vol] 11 mg/dL Normal 7 - 18 [facility] Comment on above: Performed By: #### 2 87563 ####[address] [address] VANCOMYCIN TROUGHon 09-26-19 25 VANCOMYCIN,TROUGH 4.9 ug/mL Low 5.0 - 10.0 [facility] Comment on above: Performed By: #### 2 63254 #### [place] [address],[place] [address] VANCOMYCIN,TROUGH 5.0 ug/mL Normal 5.0 - 10.0 [facility] Comment on above: Performed By: #### 2 27654 #### [facility],[address] [place] [address] 39585 CBC + DIFFon 09-24-2024 Baso # 0.07 x10EE3/UL Normal 0.00 - 0.10 [facility] Comment on above: Performed By: #### 2 69755 ####[facility],[address] [place] [address] 41391 Basophils/100 WBC (Bld) 0.6 % Normal 0.0 - 2.0 [facility] Comment on above: Performed By: #### 2 20454 ####[facility],[address] [place], [place] [id number] CBC + DIFF Normal [facility] Comment on above: Result Comment: CBC- COMPLETE BLOOD COUNT Performed By: #### 2 93762 ####[facility],[address] [place] [address] 48914 EO # 0.24 x10EE3/UL Normal 0.00 - 0.50 [facility] Comment on above: Performed By: #### 2 79556 ####[facility],[address] [place] [address] 10432 Eosinophils/100 WBC (Bld) 1.9 % Normal 0.0 - 7.0 [facility] Comment on above: Performed By: #### 2 52006 ####[facility],[address] [place] [address] 17792 Erythrocyte distribution width (RBC) [Ratio] 17.1 % High 12.0 - 15.6 [facility] Comment on above: Performed By: #### 2 26162 ####[facility],[address] [place] [address] 67077 Hematocrit (Bld) [Volume fraction] 26.8 % Low 34.0 - 46.0 [facility] Comment on above: Performed By: #### 2 80758 ####[facility],[address] [place] [address] Hemoglobin (Bld) [Mass/Vol] 8.6 g/dL Low 12.0 - 16.0 [facility] Comment on above: Performed By: #### 2 85157 ####[facility],[address] [place] [address] Lymph # 2.14 x10EE3/UL Normal 0.80 - 2.80 [facility] Comment on above: Performed By: #### 2 25191 ####[facility],[address] [place] [address] Lymphocytes/100 WBC (Bld) 17.2 % Low 20.0 - 45.0 [facility] Comment on above: Performed By: #### 2 06146 ####[facility],[address] [place] [address] MANUAL DIFF N/A Normal [facility] Comment on above: Performed By: #### 2 38065 ####[facility],[address] [place] [address] MCH (RBC) [Entitic mass] 25 pg Low 27 - 33 [facility] Comment on above: Performed By: #### 2 06489 ####[facility],[address] [place], [place] [id number] MCHC 32 X10 3 Normal 32 - 36 [facility] Comment on above: Performed By: #### 2 57608 ####[facility],[address] [place], [place] [id number] MCV (RBC) [Entitic vol] 79 fL Low 80 - 99 [facility] Comment on above: Performed By: #### 2 32433 ####[facility],[address] [place] [address] [place] # 1.36 x10EE3/UL High 0.20 - 1.00 [facility] Comment on above: Performed By: #### 2 32991 ####[facility],[address] [place] [address] 81970 MONOS % 10.9 % High 0.0 - 10.0 [facility] Comment on above: Performed By: #### 2 46672 ####[facility],[address] [place] [address] 56475 Morphology Stan (Bld) [Interp] N/A Normal [facility] Comment on above: Performed By: #### 2 31734 ####[facility],[address] [place] [address] 85578 Neut # 8.65 x10EE3/UL High 1.50 - 7.10 [facility] Comment on above: Performed By: #### 2 84531 ####[facility],[address] [place] [address] 17878 Neutrophils/100 WBC (Bld) 69.4 % Normal 46.0 - 76.0 [facility] Comment on above: Performed By: #### 2 53036 ####[facility],[address] [place] [address] 68385 PLATELET 538 x10EE3/UL High 150 - 450 [facility] Comment on above: Performed By: #### 2 85713 ####[facility],[address] [place] [address] 04426 Platelet mean volume (Bld) [Entitic vol] 8.1 fL Normal 6.6 - 10.5 [facility] Comment on above: Result Comment: AUTO MATED DIFFERENTIAL Performed By: #### 2 49105 ####[facility],[address] [place] [address] 96989 RBC 3.39 x 10EE6/UL Low 4.10 - 5.30 [facility] Comment on above: Performed By: #### 2 77411 ####[facility],[address] [place] [address] 76807 WBC 12.5 x 10EE3/UL High 4.5 - 10.8 [facility] Comment on above: Performed By: #### 2 50432 ####[facility],[address] [place] [address] 10149 CMP with eGFRon 09-24-2024 AGE 39 years Normal [facility] Comment on above: Performed By: #### 2 59370 #### [facility],[address] [place], [place] [id number] Albumin [Mass/Vol] 1.7 g/dL Low 3.4 - 5.0 [facility] Comment on above: Performed By: #### 2 08906 #### [facility],[address] [place], [place] [id number] Albumin/Globulin [Mass ratio] 0.3 {ratio} Low 0.9 - 1.6 [facility] Comment on above: Performed By: #### 2 05313 #### [facility],[address] [place], [place] [id number] ALK PHOS 144 U/L High 46 - 116 [facility] Comment on above: Performed By: #### 2 35005 #### [facility],[address] [place] [address] 39129 ALT [Catalytic activity/Vol] 90 U/L High 16 - 63 [facility] Comment on above: Performed By: #### 2 93413 #### [facility],[address] [place] [address] 12609 Anion gap [Moles/Vol] 13 mmol/L Normal 10 - 20 [facility] Comment on above: Performed By: #### 2 85579 #### [facility],[address] [place] [address] 89138 AST [Catalytic activity/Vol] 40 U/L High 13 - 39 [facility] Comment on above: Performed By: #### 2 84319 #### [facility],[address] [place] [address] 55052 B/C RATIO 22 ratio Normal 0 - 30 [facility] Comment on above: Performed By: #### 2 76351 #### [facility],[address] [place] [address] 99111 Bilirubin [Mass/Vol] 0.5 mg/dL Normal 0.2 - 1.0 [facility] Comment on above: Performed By: #### 2 80742 #### [facility],[address] [place] [address] 55226 Calcium [Mass/Vol] 8.1 mg/dL Low 8.5 - 10.1 [facility] Comment on above: Performed By: #### 2 55503 #### [facility],[address] [place], [place] [id number] Chloride [Moles/Vol] 101 mmol/L Normal 98 - 107 [facility] Comment on above: Performed By: #### 2 85647 #### [facility],[address] [place], [place] [id number] CMP with eGFR Normal [facility] Comment on above: Result Comment: COMP REHENSIVE METABOLIC PANEL Performed By: #### 2 80443 #### [address] [address] CO2 [Moles/Vol] 25.9 mmol/L Normal 21.0 - 32.0 [facility] Comment on above: Performed By: #### 2 32830 #### [facility],[address] [place] [address] 38547 Creatinine [Mass/Vol] 0.76 mg/dL Normal 0.55 - 1.02 [facility] Comment on above: Performed By: #### 2 78867 #### [address] [address] GFR/1.73 sq M.predicted among non-blacks MDRD (S/P/Bld) [Vol rate/Area] mL/min/{1.73_m2} Normal 60 - 999 [facility] Comment on above: Performed By: #### 2 07533 #### [facility],[address] [place], [place] [id number] Result Comment: ACCO RDING TO THE NATIONAL KIDNEY DISEASE EDUCATION PROGRAM(NKDE), A NORMAL eGFR IS A VALUE GREATER THAN OR EQUAL TO 60 ML/MIN/1.73 SQ METERS. CHRONIC KIDNEY DISEASE: <60mL/MIN/1.73 SQ METERS KIDNEY FAILURE: <15mL/MIN/1.73 SQ METERS THIS TEST SHOULD ONLY BE USED FOR PATIENTS 18 YEARS OF AGE AND OLDER. Globulin (S) [Mass/Vol] 5.4 g/dL High 1.5 - 3.8 [facility] Comment on above: Performed By: #### 2 41116 #### [facility],[address] [place] [address] 96078 Glucose [Mass/Vol] 88 mg/dL Normal 74 - 106 [facility] Comment on above: Performed By: #### 2 75384 #### [facility],[address] [place], [place] [id number] Potassium [Moles/Vol] 3.7 mmol/L Normal 3.5 - 5.1 [facility] Comment on above: Performed By: #### 2 38509 #### [facility],[address] [place], [place] [id number] Protein [Mass/Vol] 7.1 g/dL Normal 6.4 - 8.2 [facility] Comment on above: Performed By: #### 2 30175 #### [facility],[address] [place] [address] 66040 Sodium [Moles/Vol] 136 mmol/L Normal 136 - 145 [facility] Comment on above: Performed By: #### 2 40693 #### [facility],[address] [place] [address] 03938 Urea nitrogen [Mass/Vol] 17 mg/dL Normal 7 - 18 [facility] Comment on above: Performed By: #### 2 02274 #### [facility],[address] [place] [address] MAGNESIUMon 09-24-2024 Magnesium [Mass/Vol] 1.9 mg/dL Normal 1.8 - 2.4 [facility] Comment on above: Performed By: #### 2 17996 #### [facility],[address] [place], [place] [id number] BCIDon 09-23-2024 Acinetobacter michael-baumanii complex Not detected Normal Not Detected [facility] Comment on above: Performed By: #### B ANITHA #### [place] [address] Bacteroides fragilis Not detected Normal Not Detected [facility] Comment on above: Performed By: #### B ANITHA #### [place] [address] BCID Comment See Comment Normal [facility] Comment on above: Result Comment: [...] follow. Performed By: #### B ANITHA #### [place] [address] [place] albicans Not detected Normal Not Detected [facility] Comment on above: Performed By: #### B ANITHA #### [place] [address] [place] auris Not detected Normal Not Detected [facility] Comment on above: Performed By: #### B ANITHA #### [place] [address] [place] glabrata Not detected Normal Not Detected [facility] [facility] Comment on above: Performed By: #### B ANITHA #### [place] [address] Mary Ann krusei Not detected Normal Not Detected [facility] Comment on above: Performed By: #### B ANITHA #### [place] [address] Mary Ann parapsilosis Not detected Normal Not Detected [facility] Comment on above: Performed By: #### B ANITHA #### [facility] [address] [place] [address] Mary Ann tropicalis Not detected Normal Not Detected [facility] Comment on above: Performed By: #### B ANITHA #### [facility] [address] [place] [address] Cryptococcus neoformans-gattii Not detected Normal Not Detected [facility] Comment on above: Performed By: #### B ANITHA #### [facility] [address] [place] [address] CTX-M (ESBL) Not Applicable Normal Not Detected [facility] Comment on above: Performed By: #### B ANITHA #### [facility] [address] [place] [address] E. Coli Not detected Normal Not Detected [facility] Comment on above: Performed By: #### B ANITHA #### [facility] [address] [place] [address] Enterobacter cloacae Complex Not detected Normal Not Detected [facility] Comment on above: Performed By: #### B ANITHA #### [facility] [address] [place] [address] Enterobacterales Not detected Normal Not Detected [facility] Comment on above: Performed By: #### B ANITHA #### [facility] [address] [place] [address] Enterococcus faecalis Not detected Normal Not Detected [facility] Comment on above: Performed By: #### B ANITHA #### [facility] [address] [place] [address] Enterococcus faecium Not detected Normal Not Detected [facility] Comment on above: Performed By: #### B ANITHA #### [facility] [address] [place] [address] Haemophilus influenzae Not detected Normal Not Detected [facility] Comment on above: Performed By: #### B ANITHA #### [facility] [address] [place] [address] IMP (Carbapenemase) Not Applicable Normal Not Detected [facility] Comment on above: Performed By: #### B ANITHA #### [facility] [address] [place] [address] Klebsiella aerogenes Not detected Normal Not Detected [facility] Comment on above: Performed By: #### B ANITHA #### [facility] [address] [place] [address] Klebsiella oxytoca Not detected Normal Not Detected [facility] Comment on above: Performed By: #### B ANITHA #### [facility] [address] [place] [address] Klebsiella pneumoniae group Not detected Normal Not Detected [facility] Comment on above: Performed By: #### B ANITHA #### [facility] [address] [place] [address] KPC (Carbapenemase) Not Applicable Normal Not Detected [facility] Comment on above: Performed By: #### B ANITHA #### [place] [address] Listeria monocytogenes Not detected Normal Not Detected [facility] Comment on above: Performed By: #### B ANITHA #### [place] [address] MCR-1 (Colistin Resistance) Not Applicable Normal Not Detected [facility] Comment on above: Performed By: #### B ANITHA #### [place] [address] Mec A/C Detected Abnormal Not Detected [facility] Comment on above: Performed By: #### B ANITHA #### [place] [address] Mec A/C-MREJ (MRSA) Not Applicable Normal Not Detected [facility] Comment on above: Performed By: #### B ANITHA #### [place] [address] NDM (Carbapenemase) Not Applicable Normal Not Detected [facility] Comment on above: Performed By: #### B ANITHA #### [place] [phone] Neisseria meningitidis (Encapsalated) Not detected Normal Not Detected [facility] Comment on above: Performed By: #### B ANITHA #### [place] [address] OXA-48 like (Carbapenemase) Not Applicable Normal Not Detected [facility] Comment on above: Performed By: #### B ANITHA #### [place] [address] [place], [place] [id number] Proteus Not detected Normal Not Detected [facility] Comment on above: Performed By: #### B ANITHA #### [facility] [address] [place], [place] [id number] Pseudomonas aeruginosa Not detected Normal Not Detected [facility] Comment on above: Performed By: #### B ANITHA #### [place] [phone] S. agalactiae Org specific cx Ql (Vag fld) Not detected Normal Not Detected [facility] Comment on above: Performed By: #### B ANITHA #### [place] [address] Salmonella species Not detected Normal Not Detected [facility] Comment on above: Performed By: #### B ANITHA #### [place] [address] Serratia marcescens Not detected Normal Not Detected [facility] Comment on above: Performed By: #### B ANITHA #### [place] [address] Staphylococcus Detected Abnormal Not Detected [facility] Comment on above: Performed By: #### B ANITHA #### [place] [address] Staphylococcus aureus Not detected Normal Not Detected [facility] Comment on above: Result Comment: If S taphylococcus aureus is Detected, an Infectious Disease physician consult is required on identification. Performed By: #### B ANITHA #### [place] [address] Staphylococcus epidermidis Detected Abnormal Not Detected [facility] Comment on above: Performed By: #### B ANITHA #### [place] [phone] Staphylococcus lugdunensis Not detected Normal Not Detected [facility] Comment on above: Performed By: #### B ANITHA #### [place] [phone] Stenotrophomonas maltophilia Not detected Normal Not Detected [facility] Comment on above: Performed By: #### B ANITHA #### [place] [address] Streptococcus Not detected Normal Not Detected [facility] Comment on above: Performed By: #### B ANITHA #### [place] [address] Streptococcus pneumoniae Not detected Normal Not Detected [facility] Comment on above: Performed By: #### B ANITHA #### [facility] [address] [place] [address] Streptococcus pyogenes Not detected Normal Not Detected [facility] Comment on above: Performed By: #### B ANITHA #### [place] [address] Van A/B Not Applicable Normal Not Detected [facility] Comment on above: Performed By: #### B ANITHA #### [place] [address] VIM (Carbapenemase) Not Applicable Normal Not Detected [facility] Comment on above: Performed By: #### B ANITHA #### [place] [address] CULTURE CATHETER TIP [AULTMA N]on 09-23-2024 CULTURE CATHETER TIP [IRASEMA] CULTURE CATHETER TIP [IRASEMA] _CATHETER TIP CULTURE_ GO TO [employer] REPORTS AND ATTACHMENTS FOR SCANNED REPORT 09/28/24.DNP.COMPLETE Normal [facility] Comment on above: Performed By: #### 2 17633 #### [facility],[address] [place], [place] [id number] CULTURE BLOOD [IRASEMA]on Microscopic examination of blood, culture CULTURE BLOOD [IRASEMA] _BLOOD CULTURE_ GO TO [employer] REPORTS AND ATTACHMENTS FOR SCANNED REPORT 09/28/24.DNP.COMPLETE Normal [facility] Comment on above: Performed By: #### 2 88534 #### [facility],[address] [place], [place] [phone] Microscopic examination of blood, culture CULTURE BLOOD [IRASEMA] _BLOOD CULTURE_ GO TO [employer] REPORTS AND ATTACHMENTS FOR SCANNED REPORT 09/28/24.DNP.COMPLETE Normal [facility] Comment on above: Performed By: #### 2 16373 #### [facility],[address] [place] [address]118 URINALYSISon 09-21-2024 Bilirubin Ql (U) Negative Normal NORMAL: NEGATIVE [facility] Comment on above: Performed By: #### 2 88569 #### [facility],[address] [place] [address] 23542 Clarity (U) clear Normal NORMAL: CLEAR [facility] Comment on above: Performed By: #### 2 51363 #### [facility],[address] [place] [address]2561 Color (U) yellow Normal NORMAL: YELLOW [facility] Comment on above: Performed By: #### 2 85942 #### [facility],[address] [place] [address] 04111 Glucose Ql (U) NORM Normal NORMAL: NORMAL [facility] Comment on above: Performed By: #### 2 22984 #### [facility],[address] [place] [address] 17851 Hemoglobin Ql (U) Negative Normal NORMAL: NEGATIVE [facility] Comment on above: Performed By: #### 2 37208 #### [facility],[address] [place] [address] 15766 Ketone Negative Normal NORMAL: NEGATIVE [facility] Comment on above: Performed By: #### 2 40298 #### [facility],[address] [place] [address] 90750 Leukocytes Negative Normal NORMAL: NEGATIVE [facility] Comment on above: Performed By: #### 2 86749 #### [facility],[address] [place] [address] 46985 Nitrite Ql (U) Negative Normal NORMAL: NEGATIVE [facility] Comment on above: Performed By: #### 2 03103 #### [facility],[address] [place] [address] 04026 pH (U) 6.5 [pH] Normal NORMAL: 5.0-8.0 [facility] Comment on above: Performed By: #### 2 44286 #### [facility],[address] [place] [address] Protein Ql (U) 15 Abnormal NORMAL: NEGATIVE [facility] Comment on above: Performed By: #### 2 56056 #### [facility],[address] [place] [address] Sp [place] 1.020 Normal NORMAL: 1.010-1.030 [facility] Comment on above: Performed By: #### 2 15242 #### [facility],[address] [place] [address] Specimen Type Clean catch Normal [facility] Comment on above: Performed By: #### 2 18342 #### [place] [address] Urinalysis dipstick W Reflex Microscopic panel (U) NOT INDICATED Normal [facility] Comment on above: Performed By: #### 2 39294 #### [place] [address] Urobilinog NORM Normal NORMAL: NORMAL [facility] Comment on above: Performed By: #### 2 24381 #### [place] [address] URINE CULTURE [CCL]on 2024 Bacteria identified Cx Nom (U) URCUL See Results Below See Below CULTURE, URINE MIXED MICROBIOTA 10,000 -<50,000 CFU/ml Mixed microbiota No further workup. Mixed microbiota can be due to???urine???contamination with s SOURCE: Urine (Nonspecific) [facility] [address] [place] [address] Jaison Lema III, M.D. [id number] Normal [facility] Comment on above: Performed By: #### 2 59074 #### [facility],[address] [place] [address] 91012 CBC + DIFFon 09-20-2024 Baso # 0.06 x10EE3/UL Normal 0.00 - 0.10 [facility] Comment on above: Performed By: #### 2 80338 ####[facility],[address] [place] [address] 30267 Basophils/100 WBC (Bld) 0.4 % Normal 0.0 - 2.0 [facility] Comment on above: Performed By: #### 2 84160 ####[facility],[address] [place] [address] 64663 Basophils/100 WBC (Bld) 1.0 % Normal 0.0 - 2.0 [facility] Comment on above: Performed By: #### 2 02709 ####[facility],[address] [place] [address] 89925 CBC + DIFF Normal [facility] Comment on above: Result Comment: CBC- COMPLETE BLOOD COUNT Performed By: #### 2 29962 ####[facility],[address] [place] [address] 61585 CELL COUNT 100 Normal [facility] Comment on above: Performed By: #### 2 80175 ####[facility],[address] [place] [address] 46798 EO 1.0 % Normal 0.0 - 7.0 [facility] Comment on above: Performed By: #### 2 07682 ####[facility],[address] [place] [address] 94051 EO # 0.22 x10EE3/UL Normal 0.00 - 0.50 [facility] Comment on above: Performed By: #### 2 24610 ####[facility],[address] [place] [address] 90629 Eosinophils/100 WBC (Bld) 1.4 % Normal 0.0 - 7.0 [facility] Comment on above: Performed By: #### 2 41862 ####[facility],[address] [place] [address] 21797 Erythrocyte distribution width (RBC) [Ratio] 18.0 % High 12.0 - 15.6 [facility] Comment on above: Performed By: #### 2 52651 ####[facility],[address] [place], [place] [id number] Hematocrit (Bld) [Volume fraction] 28.2 % Low 34.0 - 46.0 [facility] Comment on above: Performed By: #### 2 80109 ####[facility],[address] [place] [address] Hemoglobin (Bld) [Mass/Vol] 9.1 g/dL Low 12.0 - 16.0 [facility] Comment on above: Performed By: #### 2 25252 ####[facility],[address] [place] [address] Lymph # 2.04 x10EE3/UL Normal 0.80 - 2.80 [facility] Comment on above: Performed By: #### 2 08877 ####[facility],[address] [place] [address] 40381 Lymphocytes/100 WBC (Bld) 12.6 % Low 20.0 - 45.0 [facility] Comment on above: Performed By: #### 2 77852 ####[facility],[address] [place] [address] 58514 Lymphocytes/100 WBC (Bld) 13 % Low 20 - 45 [facility] Comment on above: Performed By: #### 2 80891 ####[facility],[address] [place] [address] 41095 MANUAL DIFF SEE BELOW Normal [facility] Comment on above: Performed By: #### 2 47940 ####[facility],[address] [place] [address] 64084 MCH (RBC) [Entitic mass] 26 pg Low 27 - 33 [facility] Comment on above: Performed By: #### 2 79878 ####[facility],[address] [place] [address] MCHC 32 X10 3 Normal 32 - 36 [facility] Comment on above: Performed By: #### 2 78325 ####[facility],[address] [place] [address] MCV (RBC) [Entitic vol] 80 fL Normal 80 - 99 [facility] Comment on above: Performed By: #### 2 85755 ####[facility],[address] [place] [address] [place] # 1.34 x10EE3/UL High 0.20 - 1.00 [facility] Comment on above: Performed By: #### 2 79806 ####[facility],[address] [place] [address] MONOS 4 % Normal 0 - 10 [facility] Comment on above: Performed By: #### 2 54693 ####[facility],[address] [place] [address] MONOS % 8.3 % Normal 0.0 - 10.0 [facility] Comment on above: Performed By: #### 2 20883 ####[facility],[address] [place] [address] Morphology Stan (Bld) [Interp] REVIEWED Normal [facility] Comment on above: Performed By: #### 2 43326 ####[facility],[address] [place] [address] Neut # 12.46 x10EE3/UL High 1.50 - 7.10 [facility] Comment on above: Performed By: #### 2 44990 ####[facility],[address] [place] [address] Neutrophils/100 WBC (Bld) 77.3 % High 46.0 - 76.0 [facility] Comment on above: Performed By: #### 2 99270 ####[facility],[address] [place], [place] [address] NRBC 1 /100 Normal [facility] Comment on above: Performed By: #### 2 21393 ####[facility],[address] [place] [address] 89554 PLATELET 422 x10EE3/UL Normal 150 - 450 [facility] Comment on above: Performed By: #### 2 99237 ####[facility],[address] [place] [address] Platelet mean volume (Bld) [Entitic vol] 8.8 fL Normal 6.6 - 10.5 [facility] Comment on above: Result Comment: AUTO MATED DIFFERENTIAL Performed By: #### 2 58489 ####[facility],[address] [place] [address] RBC 3.52 x 10EE6/UL Low 4.10 - 5.30 [facility] Comment on above: Performed By: #### 2 35413 ####[facility],[address] [place] [address] SEGS 81 % High 46 - 76 [facility] Comment on above: Performed By: #### 2 22325 ####[facility],[address] [place], [place] [address] WBC 16.1 x 10EE3/UL High 4.5 - 10.8 [facility] Comment on above: Performed By: #### 2 30911 ####[facility],[address] [place] [address] 50149 CMP with eGFRon 09-20-2024 AGE 39 years Normal [facility] Comment on above: Performed By: #### 2 92845 #### [facility],[address] [place] [address] 48912 Albumin [Mass/Vol] 1.6 g/dL Low 3.4 - 5.0 [facility] Comment on above: Performed By: #### 2 89524 #### [facility],[address] [place], [place] [address] Albumin/Globulin [Mass ratio] 0.3 {ratio} Low 0.9 - 1.6 [facility] Comment on above: Performed By: #### 2 67694 #### [facility],[address] [place], [place] [id number] ALK PHOS 136 U/L High 46 - 116 [facility] Comment on above: Performed By: #### 2 28117 #### [facility],[address] [place] [address] ALT [Catalytic activity/Vol] 80 U/L High 16 - 63 [facility] Comment on above: Performed By: #### 2 18446 #### [facility],[address] [place] [address] Anion gap [Moles/Vol] 10 mmol/L Normal 10 - 20 [facility] Comment on above: Performed By: #### 2 54525 #### [facility],[address] [place] [address] AST [Catalytic activity/Vol] 34 U/L Normal 13 - 39 [facility] Comment on above: Performed By: #### 2 09929 #### [facility],[address] [place] [address] B/C RATIO 15 ratio Normal 0 - 30 [facility] Comment on above: Performed By: #### 2 49689 #### [facility],[address] [place] [address] Bilirubin [Mass/Vol] 0.6 mg/dL Normal 0.2 - 1.0 [facility] Comment on above: Performed By: #### 2 95220 #### [facility],[address] [place], [place] [id number] Calcium [Mass/Vol] 8.1 mg/dL Low 8.5 - 10.1 [facility] Comment on above: Performed By: #### 2 65013 #### [facility],[address] [place], [place] [id number] Chloride [Moles/Vol] 101 mmol/L Normal 98 - 107 [facility] Comment on above: Performed By: #### 2 18138 #### [facility],[address] [place] [address] CMP with eGFR Normal [facility] Comment on above: Result Comment: COMP REHENSIVE METABOLIC PANEL Performed By: #### 2 78830 #### [facility],[address] [place] [address] CO2 [Moles/Vol] 29.0 mmol/L Normal 21.0 - 32.0 [facility] Comment on above: Performed By: #### 2 75600 #### [facility],[address] [place] [address] Creatinine [Mass/Vol] 0.80 mg/dL Normal 0.55 - 1.02 [facility] Comment on above: Performed By: #### 2 62669 #### [facility],[address] [place] [address] GFR/1.73 sq M.predicted among non-blacks MDRD (S/P/Bld) [Vol rate/Area] mL/min/{1.73_m2} Normal 60 - 999 [facility] Comment on above: Performed By: #### 2 42190 #### [facility],[address] [place] [address] Result Comment: ACCO RDING TO THE NATIONAL KIDNEY DISEASE EDUCATION PROGRAM(NKDE), A NORMAL eGFR IS A VALUE GREATER THAN OR EQUAL TO 60 ML/MIN/1.73 SQ METERS. CHRONIC KIDNEY DISEASE: <60mL/MIN/1.73 SQ METERS KIDNEY FAILURE: <15mL/MIN/1.73 SQ METERS THIS TEST SHOULD ONLY BE USED FOR PATIENTS 18 YEARS OF AGE AND OLDER. Globulin (S) [Mass/Vol] 5.3 g/dL High 1.5 - 3.8 [facility] Comment on above: Performed By: #### 2 79770 #### [facility],[address] [place] [address] 65387 Glucose [Mass/Vol] 98 mg/dL Normal 74 - 106 [facility] Comment on above: Performed By: #### 2 85034 #### [facility],[address] [place] [address] 10034 Potassium [Moles/Vol] 4.2 mmol/L Normal 3.5 - 5.1 [facility] Comment on above: Performed By: #### 2 25124 #### [facility],[address] [place] [address] 96256 Protein [Mass/Vol] 6.9 g/dL Normal 6.4 - 8.2 [facility] Comment on above: Performed By: #### 2 47890 #### [facility],[address] [place] [address] 63343 Sodium [Moles/Vol] 136 mmol/L Normal 136 - 145 [facility] Comment on above: Performed By: #### 2 28574 #### [facility],[address] [place] [address] 74502 Urea nitrogen [Mass/Vol] 12 mg/dL Normal 7 - 18 [facility] Comment on above: Performed By: #### 2 51658 #### [facility],[address] [place] [address] 73949 MAGNESIUMon 09-20-2024 Magnesium [Mass/Vol] 1.7 mg/dL Low 1.8 - 2.4 [facility] Comment on above: Performed By: #### 2 33852 ####[facility],[address] [place] [address] 84222 BCIDon 09-18-2024 Acinetobacter michael-baumanii complex Not detected Normal Not Detected [facility] Comment on above: Order Comment: aer Performed By: #### B ANITHA #### [place] [address] Bacteroides fragilis Not detected Normal Not Detected [facility] Comment on above: Order Comment: aer Performed By: #### B ANITHA #### [place] [address] BCID Comment See Comment Normal [facility] Comment on above: Order Comment: [...] follow. Performed By: #### B ANITHA #### [place] [address] [place] albicans Not detected Normal Not Detected [facility] Comment on above: Order Comment: aer Performed By: #### B ANITHA #### [place] [address] [place] auris Not detected Normal Not Detected [facility] Comment on above: Order Comment: aer Performed By: #### B ANITHA #### [place] [address] [place] glabrata Not detected Normal Not Detected [facility] Comment on above: Order Comment: aer Performed By: #### B ANITHA #### [place] [address] [place] krusei Not detected Normal Not Detected [facility] Comment on above: Order Comment: aer Performed By: #### B ANITHA #### [place] [address] [place] parapsilosis Not detected Normal Not Detected [facility] Comment on above: Order Comment: aer Performed By: #### B ANITHA #### [place] [address] [place] tropicalis Not detected Normal Not Detected [facility] Comment on above: Order Comment: aer Performed By: #### B ANITHA #### [place] [address] Cryptococcus neoformans-gattii Not detected Normal Not Detected [facility] Comment on above: Order Comment: aer Performed By: #### B ANITHA #### [place] [address] CTX-M (ESBL) Not Applicable Normal Not Detected [facility] Comment on above: Order Comment: aer Performed By: #### B ANITHA #### [place] [address] E. Coli Not detected Normal Not Detected [facility] Comment on above: Order Comment: aer Performed By: #### B ANITHA #### [place] [address] Enterobacter cloacae Complex Not detected Normal Not Detected [facility] Comment on above: Order Comment: aer Performed By: #### B ANITHA #### [place] [address] Enterobacterales Not detected Normal Not Detected [facility] Comment on above: Order Comment: aer Performed By: #### B ANITHA #### [place] [address] Enterococcus faecalis Not detected Normal Not Detected [facility] Comment on above: Order Comment: aer Performed By: #### B ANITHA #### [place] [address] Enterococcus faecium Not detected Normal Not Detected [facility] Comment on above: Order Comment: aer Performed By: #### B ANITHA #### [place] [address] Haemophilus influenzae Not detected Normal Not Detected [facility] Comment on above: Order Comment: aer Performed By: #### B ANITHA #### [place] [address] IMP (Carbapenemase) Not Applicable Normal Not Detected [facility] [facility] Comment on above: Order Comment: aer Performed By: #### B ANITHA #### [address] [address] Klebsiella aerogenes Not detected Normal Not Detected [facility] Comment on above: Order Comment: aer Performed By: #### B ANITHA #### [facility] [address] [place] [address] Klebsiella oxytoca Not detected Normal Not Detected [facility] Comment on above: Order Comment: aer Performed By: #### B ANITHA #### [place] [address] Klebsiella pneumoniae group Not detected Normal Not Detected [facility] Comment on above: Order Comment: aer Performed By: #### B ANITHA #### [place] [address] KPC (Carbapenemase) Not Applicable Normal Not Detected [facility] Comment on above: Order Comment: aer Performed By: #### B ANITHA #### [place] [address] Listeria monocytogenes Not detected Normal Not Detected [facility] Comment on above: Order Comment: aer Performed By: #### B ANITHA #### [place] [address] MCR-1 (Colistin Resistance) Not Applicable Normal Not Detected [facility] Comment on above: Order Comment: aer Performed By: #### B ANITHA #### [place] [id number] Mec A/C Detected Abnormal Not Detected [facility] Comment on above: Order Comment: aer Performed By: #### B ANITHA #### [place] [id number] Mec A/C-MREJ (MRSA) Not Applicable Normal Not Detected [facility] Comment on above: Order Comment: aer Performed By: #### B ANITHA #### [place] [address] NDM (Carbapenemase) Not Applicable Normal Not Detected [facility] Comment on above: Order Comment: aer Performed By: #### B ANITHA #### [place] [address] Neisseria meningitidis (Encapsalated) Not detected Normal Not Detected [facility] Comment on above: Order Comment: aer Performed By: #### B ANITHA #### [place] [address] OXA-48 like (Carbapenemase) Not Applicable Normal Not Detected [facility] Comment on above: Order Comment: aer Performed By: #### B ANITHA #### [place] [address] Proteus Not detected Normal Not Detected [facility] Comment on above: Order Comment: aer Performed By: #### B ANITHA #### [place] [address] Pseudomonas aeruginosa Not detected Normal Not Detected [facility] Comment on above: Order Comment: aer Performed By: #### B ANITHA #### [place] [address] S. agalactiae Org specific cx Ql (Vag fld) Not detected Normal Not Detected [facility] Comment on above: Order Comment: aer Performed By: #### B ANITHA #### [place] [address] Salmonella species Not detected Normal Not Detected [facility] Comment on above: Order Comment: aer Performed By: #### B ANITHA #### [place] [address] Serratia marcescens Not detected Normal Not Detected [facility] Comment on above: Order Comment: aer Performed By: #### B ANITHA #### [place] [address] Staphylococcus Detected Abnormal Not Detected [facility] Comment on above: Order Comment: aer Performed By: #### B ANITHA #### [place] [address] Staphylococcus aureus Not detected Normal Not Detected [facility] Comment on above: Order Comment: aer Result Comment: If S taphylococcus aureus is Detected, an Infectious Disease physician consult is required on identification. Performed By: #### B ANITHA #### [place] [address] Staphylococcus epidermidis Detected Abnormal Not Detected [facility] Comment on above: Order Comment: aer Performed By: #### B ANITHA #### [place] [address] Staphylococcus lugdunensis Not detected Normal Not Detected [facility] Comment on above: Order Comment: aer Performed By: #### B ANITHA #### [place] [address] Stenotrophomonas maltophilia Not detected Normal Not Detected [facility] Comment on above: Order Comment: aer Performed By: #### B ANITHA #### [place] [address] Streptococcus Not detected Normal Not Detected [facility] Comment on above: Order Comment: aer Performed By: #### B ANITHA #### [place] [id number] Streptococcus pneumoniae Not detected Normal Not Detected [facility] Comment on above: Order Comment: aer Performed By: #### B ANITHA #### [place] [id number] Streptococcus pyogenes Not detected Normal Not Detected [facility] Comment on above: Order Comment: aer Performed By: #### B ANITHA #### [place] [phone] Van A/B Not Applicable Normal Not Detected [facility] Comment on above: Order Comment: aer Performed By: #### B ANITHA #### [place] [address] VIM (Carbapenemase) Not Applicable Normal Not Detected [facility] Comment on above: Order Comment: [id number] aer Performed By: #### B ANITHA #### [place] [phone] C-REACTIVE PROTEINon 025 CRP 6.50 mg/dl High 0.00 - 0.90 [facility] Comment on above: Performed By: #### 2 98718 #### [facility],[address] [place] [address] CBC + DIFFon 09-17-2024 Baso # 0.02 x10EE3/UL Normal 0.00 - 0.10 [facility] Comment on above: Performed By: #### 2 21762 ####[facility],[address] [place] [address] Basophils/100 WBC (Bld) 0.2 % Normal 0.0 - 2.0 [facility] Comment on above: Performed By: #### 2 78829 ####[facility],[address] [place] [address]67 CBC + DIFF Normal [facility] Comment on above: Result Comment: CBC- COMPLETE BLOOD COUNT Performed By: #### 2 76892 ####[facility],[address] [place] [address] EO # 0.05 x10EE3/UL Normal 0.00 - 0.50 [facility] Comment on above: Performed By: #### 2 17952 ####[facility],[address] [place] [address] Eosinophils/100 WBC (Bld) 0.5 % Normal 0.0 - 7.0 [facility] Comment on above: Performed By: #### 2 20788 ####[facility],[address] [place] [address] Erythrocyte distribution width (RBC) [Ratio] 17.2 % High 12.0 - 15.6 [facility] Comment on above: Performed By: #### 2 23167 ####[facility],[address] [place] [address] Hematocrit (Bld) [Volume fraction] 27.0 % Low 34.0 - 46.0 [facility] Comment on above: Performed By: #### 2 88574 ####[facility],[address] [place] [address] Hemoglobin (Bld) [Mass/Vol] 9.1 g/dL Low 12.0 - 16.0 [facility] Comment on above: Performed By: #### 2 89106 ####[facility],[address] [place] [address] Lymph # 1.13 x10EE3/UL Normal 0.80 - 2.80 [facility] Comment on above: Performed By: #### 2 49778 ####[facility],[address] [place] [address] Lymphocytes/100 WBC (Bld) 10.8 % Low 20.0 - 45.0 [facility] Comment on above: Performed By: #### 2 12911 ####[facility],[address] [place] [address] MANUAL DIFF N/A Normal [facility] Comment on above: Performed By: #### 2 90653 ####[facility],[address] [place], [place] [phone] MCH (RBC) [Entitic mass] 27 pg Normal 27 - 33 [facility] Comment on above: Performed By: #### 2 13627 ####[facility],[address] [place] [address] MCHC 34 X10 3 Normal 32 - 36 [facility] Comment on above: Performed By: #### 2 89702 ####[facility],[address] [place], [place] [address] MCV (RBC) [Entitic vol] 80 fL Normal 80 - 99 [facility] Comment on above: Performed By: #### 2 97079 ####[facility],[address] [place] [address] [place] # 0.95 x10EE3/UL Normal 0.20 - 1.00 [facility] Comment on above: Performed By: #### 2 84364 ####[facility],[address] [place] [address] MONOS % 9.1 % Normal 0.0 - 10.0 [facility] Comment on above: Performed By: #### 2 27636 ####[facility],[address] [place] [address] Morphology Stan (Bld) [Interp] N/A Normal [facility] Comment on above: Performed By: #### 2 40300 ####[facility],[address] [place] [address] Neut # 8.26 x10EE3/UL High 1.50 - 7.10 [facility] Comment on above: Performed By: #### 2 01827 ####[facility],[address] [place] [address] Neutrophils/100 WBC (Bld) 79.4 % High 46.0 - 76.0 [facility] Comment on above: Performed By: #### 2 83201 ####[facility],[address] [place] [address] PLATELET 225 x10EE3/UL Normal 150 - 450 [facility] Comment on above: Performed By: #### 2 06747 ####[facility],[address] [place] [address]397 Platelet mean volume (Bld) [Entitic vol] 9.1 fL Normal 6.6 - 10.5 [facility] Comment on above: Result Comment: AUTO MATED DIFFERENTIAL Performed By: #### 2 68417 ####[facility],[address] [place] [address] 92302 RBC 3.39 x 10EE6/UL Low 4.10 - 5.30 [facility] Comment on above: Performed By: #### 2 90252 ####[facility],[address] [place] [address] WBC 10.4 x 10EE3/UL Normal 4.5 - 10.8 [facility] Comment on above: Performed By: #### 2 68653 ####[facility],[address] [place] [address] CHEST 1 VIEWon 09-17-2024 CHEST 1 VIEW [place] [address] Patient: DALY EVANS Phone#: : 1985 Age: 39 Gender: F Pt. Type: ER Account: [id number] Location: [facility] Ordering: DONTE MEZA Exam Date: 09/17/2024/6:23 Family Phys: MAGGIE INDY Charge Code: 187523 Physician: Nicollet Order #: [id number] Dose#: PROCEDURE: X-RAY CHEST 1 VIEW COMPARISON: [...] Berry MD on 09/17/2024 at 10:53 Normal [facility] CMP with eGFRon 09-17-2024 AGE 39 years Normal [facility] Comment on above: Performed By: #### 2 16740 #### [facility],[address] [place] [address] Albumin [Mass/Vol] 1.9 g/dL Low 3.4 - 5.0 [facility] Comment on above: Performed By: #### 2 37466 #### [facility],[address] [place] [address] Albumin/Globulin [Mass ratio] 0.4 {ratio} Low 0.9 - 1.6 [facility] Comment on above: Performed By: #### 2 42022 #### [facility],[address] [place] [address] ALK PHOS 82 U/L Normal 46 - 116 [facility] Comment on above: Performed By: #### 2 45843 #### [facility],[address] [place] [address] 05638 ALT [Catalytic activity/Vol] 68 U/L High 16 - 63 [facility] Comment on above: Performed By: #### 2 88137 #### [facility],[address] [place] [address] 15690 Anion gap [Moles/Vol] 11 mmol/L Normal 10 - 20 [facility] Comment on above: Performed By: #### 2 85607 #### [facility],[address] [place] [address]2794 AST [Catalytic activity/Vol] 48 U/L High 13 - 39 [facility] Comment on above: Performed By: #### 2 43406 #### [facility],[address] [place] [address] 99819 B/C RATIO 22 ratio Normal 0 - 30 [facility] Comment on above: Performed By: #### 2 37538 #### [facility],[address] [place] [address] 59990 Bilirubin [Mass/Vol] 0.4 mg/dL Normal 0.2 - 1.0 [facility] Comment on above: Performed By: #### 2 45912 #### [facility],[address] [place] [address] Calcium [Mass/Vol] 8.1 mg/dL Low 8.5 - 10.1 [facility] Comment on above: Performed By: #### 2 73150 #### [place] [id number] Chloride [Moles/Vol] 101 mmol/L Normal 98 - 107 [facility] Comment on above: Performed By: #### 2 51490 #### [facility],[address] [place] [address] CMP with eGFR Normal [facility] Comment on above: Result Comment: COMP REHENSIVE METABOLIC PANEL Performed By: #### 2 64615 #### [place] [address] CO2 [Moles/Vol] 27.6 mmol/L Normal 21.0 - 32.0 [facility] Comment on above: Performed By: #### 2 05293 #### [place] [address] Creatinine [Mass/Vol] 0.90 mg/dL Normal 0.55 - 1.02 [facility] Comment on above: Performed By: #### 2 57540 #### [place] [address] GFR/1.73 sq M.predicted among non-blacks MDRD (S/P/Bld) [Vol rate/Area] mL/min/{1.73_m2} Normal 60 - 999 [facility] Comment on above: Performed By: #### 2 01997 #### [place] [address] Result Comment: ACCO RDING TO THE NATIONAL KIDNEY DISEASE EDUCATION PROGRAM(NKDE), A NORMAL eGFR IS A VALUE GREATER THAN OR EQUAL TO 60 ML/MIN/1.73 SQ METERS. CHRONIC KIDNEY DISEASE: <60mL/MIN/1.73 SQ METERS KIDNEY FAILURE: <15mL/MIN/1.73 SQ METERS THIS TEST SHOULD ONLY BE USED FOR PATIENTS 18 YEARS OF AGE AND OLDER. Globulin (S) [Mass/Vol] 5.2 g/dL High 1.5 - 3.8 [facility] Comment on above: Performed By: #### 2 15959 #### [facility],[address] [place] [address]90 Glucose [Mass/Vol] 139 mg/dL High 74 - 106 [facility] Comment on above: Performed By: #### 2 76604 #### [facility],[address] [place] [address] 33060 Potassium [Moles/Vol] 3.2 mmol/L Low 3.5 - 5.1 [facility] Comment on above: Performed By: #### 2 35048 #### [facility],[address] [place] [address] 93745 Protein [Mass/Vol] 7.1 g/dL Normal 6.4 - 8.2 [facility] Comment on above: Performed By: #### 2 25697 #### [facility],[address] [place], [place] [address] Sodium [Moles/Vol] 136 mmol/L Normal 136 - 145 [facility] Comment on above: Performed By: #### 2 34891 #### [facility],[address] [place], [place] [address] Urea nitrogen [Mass/Vol] 20 mg/dL High 7 - 18 [facility] Comment on above: Performed By: #### 2 20781 #### [facility],[address] [place], [place] [address] CORONAVIRUS (SARS) ANTIGEN T ESTon 09-17-2024 EXTERNAL QC DONE? YES Normal [facility] Comment on above: Performed By: #### 2 57114 #### [place] [id number] INTERNAL CONTROL PASS Normal [facility] Comment on above: Performed By: #### 2 24750 #### [facility],[address] [place], [place] [address] SARS ANTIGEN Negative Normal NORMAL: NEGATIVE [facility] Comment on above: Performed By: #### 2 60165 #### [facility],[address] [place] [address] SEND TO ? NO Normal [facility] Comment on above: Result Comment: SARS -CoV-2 THIS TEST IS BEING USED UNDER THE FDA EUA PROCEDURE. THIS ASSAY HAS BEEN VALIDATED AT [facility] FOR USE WITH NASAL AND [...] PUBLIC HEALTH AUTHORITIES. Performed By: #### 2 50304 #### [facility],[address] [place] [address] CT ABDOMEN/PELVIS [facility] 2024 CT ABDOMEN/PELVIS [place] [address] Patient: DALY EVANS Phone#: : 1985 Age: 39 Gender: F Pt. Type: ER Account: [id number] Location: 052 Ordering: DONTE Sweeney DIDDAYSI Exam Date: 09/17/2024/5:25 Family Phys: MAGGIE PUTNAM Charge Code: 445547 Physician: Nicollet Order #: [id number] Dose#: 28.4 PROCEDURE: CT ABDOMEN/PELVIS WITH CONTRAST [...] 39 Gender: F Pt. Type: ER Account: [id number] Location: 052 Ordering: DONTE MEZA Exam Date: 09/17/2024/5:25 Family Phys: MAGGIE PUTNAM Charge Code: [id number] Physician: Nicollet Order #: [id number] Dose#: 28.4 CONCLUSION: 1. Findings consistent with colitis. 2. Left-sided ostomy is present. Dictated by: Seda Berry MD on 09/17/2024 at 9:27 Approved by: Seda Berry MD on 09/17/2024 at 9:33 Normal [facility] CULTURE BLOOD [IRASEMA]on Microscopic examination of blood, culture CULTURE BLOOD [IRASEMA] _BLO[facility] CULTURE_ [facility] FOR SCANNED REPORT 09/24/24.1016.DNP.[facility] Comment on above: Performed By: #### 2 13121 #### [facility],[address] [place] [address] Microscopic examination of blood, culture CULTURE BLOOD [BRADDOCK] _BLOOD CULTURE_ [facility] AND ATTACH[facility] FOR SCANNED REPORT 09/21/24.1002.DNP.COMPLETE [facility] Comment on above: Performed By: #### 2 76641 ####[facility],[address] [place] [address] CVFLURVon 09-17-2024 FLU A PCR Negative Normal Negative [facility] Comment on above: Result Comment: Note s 19438 Performed By: #### C VFLURV #### [facility] [address] [place] [address] FLU B PCR Negative Normal Negative [facility] Comment on above: Result Comment: Note s [address] Performed By: #### C VFLURV #### [facility] [address] [place] [address] RSV PCR Negative Normal Negative [facility] Comment on above: Result Comment: [place] [address] Performed By: #### C VFLURV #### [facility] [address] [place] [address] SARS-CoV-2 (COVID-19) RNA LAUREANO+probe Ql (Unsp spec) Negative Normal Negative [facility] Comment on above: Result Comment: Note s [address] This test has been authorized by FDA [...] results. Performed By: #### C VFLURV #### [place] [address] ED MED ADMINISTRATION DETAIL on 09-17-2024 ED MED ADMINISTRATION DETAIL Certified Nuclear Medicine Technologist Medication Administration Record [address] [address] [id number] 09/17/2024 Patient: DALY EVANS Sex: Female : [...] and sedative warning. Verbalizes understanding. (abdominal pain 810). - 05:04 Tasha Schafer R.N. 1 of 2 Certified Nuclear Medicine Technologist Medication Ordered Medication Administration Date/Time Ondansetron IVP [...] Tasha Schafer R.N. 2 of 2 Normal [facility] ED NURSES CLINICAL NOTEon ED NURSES CLINICAL NOTE Nurse Narrative Nurse Clinical Narrative [address] [address] [phone] 09/17/2024 Patient: DALY EVANS Sex: Female : 1985 Age: 39y Primary Insurance: [employer] [employer] Policy Number: [id number] Subscriber: Other Disposition: Discharge to Alf Disposition Decision Time: 07:40 09/17/2024 Departure Time: [...] on TPN with her PICC Line). Treatment CATTLE DEHORNER: (Zofran and Gabapentin). SEPSIS SCREEN: POSITIVE. SIRS [...] a day every AM. -- 05:01 09/17/24 [place] Aranza Winn R.N. atorvastatin 40 mg [...] factors identif (more content not included)... Normal [facility] ED ORDER SHEET (CPOE ONLY)on 09-17-2024 ED ORDER SHEET (CPOE ONLY) Order Sheet Order Sheet [address] [address] [id number] 09/17/2024 Patient: DALY EVANS Sex: Female : [...] 1 Stat Renae Riggs Crystal Brenner, R.N. RIrene Blood Culture Stat 04:48 09/17/2024 04:49 09/17/2024 06:06 09/17/2024 [Irasema] # 2 Stat Renae Riggs Crystal Brenner, R.N. R.N. RSV Stat Stat 04:48 09/17/2024 04:49 09/17/2024 06:06 09/17/2024 Renae Riggs Crystal Brenner, R.N. R.N. Troponin-I Stat Stat 04:48 09/17/2024 04:49 09/17/2024 05:09 09/17/2024 2 of 4 Order Sheet Renae iRggs Crystal Brenner, R.N. R.N. EKG - ED [...] Tasha Sanchez R.N. RIrene Reason for Study: Abdominal Pain STAFF ORDERS Order Description Priority Entered Acknowledged Collected Completed Vital Signs every 30 04:48 09/17/2024 04:49 09/17/2024 05:09 09/17/2024 minutes Renae Riggs Crystal Brenner, R.N. RIrene Respiratory Therapy Aide 04:48 09/17/2024 04:49 09/17/2024 05:09 09/17/2024 Renae Riggs Crystal Brenner, R.N. RIrene Oxygen titrate to 92% 04:48 09/17/2024 04:49 09/17/2024 05:09 09/17/2024 Renae Riggs Crystal Brenner, R.N. RIrene [Electronically signed by Donte Meza D.O. (09/17/2024 08:24 EDT)] 4 of 4 Normal [facility] ED PHYSICIAN CLINICAL REPORT on 09-17-2024 ED PHYSICIAN CLINICAL REPORT Narrative Physician Clinical Narrative [address] [address] [id number] 09/17/2024 Patient: DALY EVANS Sex: Female : 1985 Age: 39y Primary Insurance: [employer] [employer] Policy Number: [id number] Subscriber: Other Disposition: Discharge to Alf Disposition Decision Time: 07:40 09/17/2024 Departure Time: [...] normal EDT (more content not included)... Normal [facility] ED SUPER BILLon 09-17-2024 ED SUPER BILL [facility] [address] [place] [address] [id number] 09/17/2024 Patient: DALY EVANS Sex: Female : 1985 Age: 39y Facility Professional Category Item Description Code Code Quantity Fee Total Drugs Normal Saline 133000 1 $0.00 $0.00 1000cc (050087) Nurse/E/M EMERGENCY 418121 1 $0.00 $0.00 DEPT VISIT HIGH SEVERITYFUNCJ (32611-23) Nurse/IV/IM/Infusions Hydration 161788 3 $0.00 $0.00 additional hour (40043) Nurse/IV/IM/Infusions IVP additional 189015 3 $0.00 $0.00 push (86644) Nurse/IV/IM/Infusions IVP initial (49810) 316305 1 $0.00 $0.00 Nurse/Supplies Central Line 921062 1 $0.00 $0.00 Dressing (304110) Grand $0.00 Total Providers 1 of 2 [facility] Donte Meza D.O. Chief Complaint ABDOMINAL PAIN. Principal Diagnosis Generalized abdominal pain. (Postoperative abdominal pain). Vomiting with nausea. status post abdominal surgery with left-sided ostomy. ICD-10 Codes R10.84: Generalized abdominal pain R11.2: Nausea with vomiting, unspecified 2 of 2 Normal [facility] ED VISIT SUMMARYon ED VISIT SUMMARY Visit Overview Visit Overview [facility] [address] [place] [address] [id number] 09/17/2024 [id number] Sex: Female : 1985 Age: 39y 09/17/2024 [...] 650 mg every 6 hours for pain. Visit Overview aspirin 81 mg chewable tablet: [...] nausea and vomiting. Recent ileostomy placement at [facility]). GENERAL / NEURO / PSYCH: Alert. [...] VOMITING WITH NAUSEA 4 of 4 Normal [facility] ED VITALS FLOW SHEETon 09-17 ED VITALS FLOW SHEET Vitals Vital Sign Flow Sheet [facility] [address] [place] [address] [id number] 09/17/2024 Patient: DALY EVANS Sex: Female : [...] 139/87 94 107 3 of 3 Normal [facility] INFLUENZA VIRUS RAPID A/Bon 09-17-2024 INFLUENZA [...] TO THREE DAYS. RESULT CRITICAL? NO Normal [facility] Comment on above: Performed By: #### 2 31360 #### [place] [address] LACTATEon 09-17-2024 Lactate [Moles/Vol] 1.4 mmol/L Normal 0.4 - 2.0 [facility] Comment on above: Performed By: #### 2 79910 #### [place] [address] LIPASEon 09-17-2024 Lipase [Catalytic activity/Vol] 38.0 U/L Normal 15.0 - 78.0 [facility] Comment on above: Result Comment: *PLE ASE NOTE THAT RANGES FOR LIPASE HAVE CHANGED OF 06/24/23 DUE TO AN ASSAY UPDATE BY THE DOUGH CUTTING MACHINE OPERATOR.THE NEW ASSAY RANGE IS 6-250 U/L, WITH A REFERENCE RANGE OF 16-77 U/L. Performed By: #### 2 60261 #### [place] [address] SERUM QUALon 09-17 EXTERNAL QC DONE? YES Normal [facility] Comment on above: Performed By: #### 2 51595 ####[place] [address] INTERNAL QC PASS Normal [facility] Comment on above: Performed By: #### 2 52437 ####[place] [address] SER Negative Normal NEGATIVE [facility] Comment on above: Performed By: #### 2 00674 ####[place] [address] RSVon 09-17-2024 RSV RSV NEGATIVE INTERNAL NEG QC PASS INTERNAL POS QC PASS EXTERNAL QC DONE? YES THIS TESTS IS INTENDED FOR IN VITRO DIAGNOSTIC USE TO AID IN THE DIAGNOSIS OF RESPIRATORY SYNCTYIAL VIRUS INFECTIONS IN AND PEDIATRIC PATIENTS UNDER THE AGE OF 5. IT IS RECOMMENDED THAT NEGATIVE TEST RESULTS BE CONFIRMED BY CELL CULTURE. Normal [facility] Comment on above: Performed By: #### 2 01636 #### [facility],[address] [place] [address] TROPONINon 09-17-2024 HS TROPONIN 7.5 pg/mL Normal 0.0 - 51.4 [facility] Comment on above: Performed By: #### 2 45510 #### [facility],[address] [place] [address] CBC + DIFFon 09-15-2024 Baso # 0.00 x10EE3/UL Normal 0.00 - 0.10 [facility] Comment on above: Performed By: #### 2 22840 #### [facility],[address] [place], [place] [address] Basophils/100 WBC (Bld) 0.1 % Normal 0.0 - 2.0 [facility] Comment on above: Performed By: #### 2 53083 #### [place] [address] CBC + DIFF Normal [facility] Comment on above: Result Comment: CBC- COMPLETE BLOOD COUNT Performed By: #### 2 46111 #### [facility],[address] [place] [address] EO # 0.01 x10EE3/UL Normal 0.00 - 0.50 [facility] Comment on above: Performed By: #### 2 51733 #### [place] [id number] Eosinophils/100 WBC (Bld) 0.3 % Normal 0.0 - 7.0 [facility] Comment on above: Performed By: #### 2 95887 #### [facility],[address],[place] [address] Erythrocyte distribution width (RBC) [Ratio] 17.5 % High 12.0 - 15.6 [facility] Comment on above: Performed By: #### 2 82161 #### [facility],[address] [place], [place] [id number] Hematocrit (Bld) [Volume fraction] 27.5 % Low 34.0 - 46.0 [facility] Comment on above: Performed By: #### 2 42188 #### [facility],[address] [place], [place] [id number] Hemoglobin (Bld) [Mass/Vol] 8.7 g/dL Low 12.0 - 16.0 [facility] Comment on above: Performed By: #### 2 58639 #### [facility],[address] [place] [address] Lymph # 0.62 x10EE3/UL Low 0.80 - 2.80 [facility] Comment on above: Performed By: #### 2 07949 #### [facility],[address] [place] [address] 78781 Lymphocytes/100 WBC (Bld) 13.7 % Low 20.0 - 45.0 [facility] Comment on above: Performed By: #### 2 62699 #### [facility],[address] [place] [address] 48008 MANUAL DIFF N/A Normal [facility] Comment on above: Performed By: #### 2 15792 #### [facility],[address] [place] [address] 19437 MCH (RBC) [Entitic mass] 25 pg Low 27 - 33 [facility] Comment on above: Performed By: #### 2 09099 #### [facility],[address] [place] [address] 12664 MCHC 32 X10 3 Normal 32 - 36 [facility] Comment on above: Performed By: #### 2 54960 #### [facility],[address] [place] [address] 36956 MCV (RBC) [Entitic vol] 80 fL Normal 80 - 99 [facility] Comment on above: Performed By: #### 2 27880 #### [facility],[address] [place] [address] 20696 [place] # 0.17 x10EE3/UL Low 0.20 - 1.00 [facility] Comment on above: Performed By: #### 2 58457 #### [facility],[address] [place] [address] 12672 MONOS % 3.8 % Normal 0.0 - 10.0 [facility] Comment on above: Performed By: #### 2 40382 #### [facility],[address] [place] [address] 88491 Morphology Stan (Bld) [Interp] N/A Normal [facility] Comment on above: Performed By: #### 2 29272 #### [facility],[address] [place] [address] 23573 Neut # 3.70 x10EE3/UL Normal 1.50 - 7.10 [facility] Comment on above: Performed By: #### 2 99937 #### [facility],[address] [place] [address] 86853 Neutrophils/100 WBC (Bld) 82.2 % High 46.0 - 76.0 [facility] Comment on above: Performed By: #### 2 78659 #### [facility],[address] [place] [address] 75981 PLATELET 272 x10EE3/UL Normal 150 - 450 [facility] Comment on above: Performed By: #### 2 64683 #### [facility],[address] [place] [address] 25027 Platelet mean volume (Bld) [Entitic vol] 8.2 fL Normal 6.6 - 10.5 [facility] Comment on above: Result Comment: AUTO MATED DIFFERENTIAL Performed By: #### 2 86570 #### [facility],[address] [place] [address] 67748 RBC 3.43 x 10EE6/UL Low 4.10 - 5.30 [facility] Comment on above: Performed By: #### 2 68761 #### [facility],[address] [place] [address] 66487 WBC 4.5 x 10EE3/UL Normal 4.5 - 10.8 [facility] Comment on above: Performed By: #### 2 88021 #### [facility],[address] [place] [address] 62594 CMP with eGFRon 09-15-2024 AGE 39 years Normal [facility] Comment on above: Performed By: #### 2 60824 #### [facility],[address] [place] [address] 39632 Albumin [Mass/Vol] 1.9 g/dL Low 3.4 - 5.0 [facility] Comment on above: Performed By: #### 2 67661 #### [facility],[address] [place] [address] 32837 Albumin/Globulin [Mass ratio] 0.3 {ratio} Low 0.9 - 1.6 [facility] Comment on above: Performed By: #### 2 66068 #### [facility],[address] [place] [address] 83575 ALK PHOS 82 U/L Normal 46 - 116 [facility] Comment on above: Performed By: #### 2 60212 #### [facility],[address] [place] [address] 39517 ALT [Catalytic activity/Vol] 27 U/L Normal 16 - 63 [facility] Comment on above: Performed By: #### 2 16597 #### [facility],[address] [place] [address] 64247 Anion gap [Moles/Vol] 13 mmol/L Normal 10 - 20 [facility] Comment on above: Performed By: #### 2 07951 #### [facility],[address] [place] [address] 45818 AST [Catalytic activity/Vol] 31 U/L Normal 13 - 39 [facility] Comment on above: Performed By: #### 2 04056 #### [facility],[address] [place] [address] 79483 B/C RATIO 14 ratio Normal 0 - 30 [facility] Comment on above: Performed By: #### 2 35105 #### [facility],[address] [place] [address] 26817 Bilirubin [Mass/Vol] 0.5 mg/dL Normal 0.2 - 1.0 [facility] Comment on above: Performed By: #### 2 02223 #### [facility],[address] [place] [address] 34406 Calcium [Mass/Vol] 8.0 mg/dL Low 8.5 - 10.1 [facility] Comment on above: Performed By: #### 2 45408 #### [facility],[address] [place] [address] 73928 Chloride [Moles/Vol] 100 mmol/L Normal 98 - 107 [facility] Comment on above: Performed By: #### 2 48702 #### [facility],[address] [place] [address] 78501 CMP with eGFR Normal [facility] Comment on above: Result Comment: COMP REHENSIVE METABOLIC PANEL Performed By: #### 2 70637 #### [facility],[address] [place] [address] 80667 CO2 [Moles/Vol] 24.6 mmol/L Normal 21.0 - 32.0 [facility] Comment on above: Performed By: #### 2 03709 #### [facility],[address] [place] [address] 02853 Creatinine [Mass/Vol] 1.06 mg/dL High 0.55 - 1.02 [facility] Comment on above: Performed By: #### 2 63316 #### [facility],[address] [place] [address] 24537 eGFR 57 ML/MINUTE Low 60 - 999 [facility] Comment on above: Performed By: #### 2 62797 #### [facility],[address] [place] [address] 53075 GFR/1.73 sq M.predicted among non-blacks MDRD (S/P/Bld) [Vol rate/Area] mL/min/{1.73_m2} Normal 60 - 999 [facility] Comment on above: Result Comment: ACCO RDING TO THE NATIONAL KIDNEY DISEASE EDUCATION PROGRAM(NKDE), A NORMAL eGFR IS A VALUE GREATER THAN OR EQUAL TO 60 ML/MIN/1.73 SQ METERS. CHRONIC KIDNEY DISEASE: <60mL/MIN/1.73 SQ METERS KIDNEY FAILURE: <15mL/MIN/1.73 SQ METERS THIS TEST SHOULD ONLY BE USED FOR PATIENTS 18 YEARS OF AGE AND OLDER. Performed By: #### 2 68198 #### [facility],[address] [place] [address] 26869 Globulin (S) [Mass/Vol] 5.5 g/dL High 1.5 - 3.8 [facility] Comment on above: Performed By: #### 2 55345 #### [facility],[address] [place] [address] 93396 Glucose [Mass/Vol] 105 mg/dL Normal 74 - 106 [facility] Comment on above: Performed By: #### 2 55877 #### [facility],[address] [place] [address] 26986 Potassium [Moles/Vol] 3.7 mmol/L Normal 3.5 - 5.1 [facility] Comment on above: Performed By: #### 2 65337 #### [facility],[address] [place] [address] 39101 Protein [Mass/Vol] 7.4 g/dL Normal 6.4 - 8.2 [facility] Comment on above: Performed By: #### 2 52130 #### [facility],[address] [place] [address] Sodium [Moles/Vol] 134 mmol/L Low 136 - 145 [facility] Comment on above: Performed By: #### 2 19877 #### [facility],[address] [place] [address] Urea nitrogen [Mass/Vol] 15 mg/dL Normal 7 - 18 [facility] Comment on above: Performed By: #### 2 28848 #### [facility],[address] [place] [address] CBC + DIFFon 09-13-2024 Baso # 0.02 x10EE3/UL Normal 0.00 - 0.10 [facility] Comment on above: Performed By: #### 2 36579 #### [facility],[address] [place] [address] Basophils/100 WBC (Bld) 0.3 % Normal 0.0 - 2.0 [facility] Comment on above: Performed By: #### 2 03415 #### [facility],[address] [place] [address] CBC + DIFF Normal [facility] Comment on above: Result Comment: CBC- COMPLETE BLOOD COUNT Performed By: #### 2 53082 #### [facility],[address] [place] [address] EO # 0.26 x10EE3/UL Normal 0.00 - 0.50 [facility] Comment on above: Performed By: #### 2 02215 #### [facility],[address] [place] [address] 65778 Eosinophils/100 WBC (Bld) 3.9 % Normal 0.0 - 7.0 [facility] Comment on above: Performed By: #### 2 64824 #### [facility],[address] [place] [address] 19655 Erythrocyte distribution width (RBC) [Ratio] 17.0 % High 12.0 - 15.6 [facility] Comment on above: Performed By: #### 2 13989 #### [facility],[address] [place] [address] 97353 Hematocrit (Bld) [Volume fraction] 29.3 % Low 34.0 - 46.0 [facility] Comment on above: Performed By: #### 2 58764 #### [facility],[address] [place], [place] [id number] Hemoglobin (Bld) [Mass/Vol] 9.5 g/dL Low 12.0 - 16.0 [facility] Comment on above: Performed By: #### 2 31528 #### [facility],[address] [place], [place] [address] Lymph # 1.51 x10EE3/UL Normal 0.80 - 2.80 [facility] Comment on above: Performed By: #### 2 05494 #### [facility],[address] [place] [address] 43614 Lymphocytes/100 WBC (Bld) 22.6 % Normal 20.0 - 45.0 [facility] Comment on above: Performed By: #### 2 11859 #### [facility],[address] [place] [address] 68452 MANUAL DIFF N/A Normal [facility] Comment on above: Performed By: #### 2 37206 #### [facility],[address] [place] [address] 61291 MCH (RBC) [Entitic mass] 26 pg Low 27 - 33 [facility] Comment on above: Performed By: #### 2 08673 #### [facility],[address] [place] [address] 45317 MCHC 33 X10 3 Normal 32 - 36 [facility] Comment on above: Performed By: #### 2 23229 #### [facility],[address] [place] [address] 39291 MCV (RBC) [Entitic vol] 81 fL Normal 80 - 99 [facility] Comment on above: Performed By: #### 2 78144 #### [facility],[address] [place] [address] 46038 [place] # 0.38 x10EE3/UL Normal 0.20 - 1.00 [facility] Comment on above: Performed By: #### 2 61425 #### [facility],[address] [place] [address] 49990 MONOS % 5.6 % Normal 0.0 - 10.0 [facility] Comment on above: Performed By: #### 2 04733 #### [facility],[address] [place] [address] 28753 Morphology Stan (Bld) [Interp] N/A Normal [facility] Comment on above: Performed By: #### 2 63053 #### [facility],[address] [place] [address] 55386 Neut # 4.54 x10EE3/UL Normal 1.50 - 7.10 [facility] Comment on above: Performed By: #### 2 93525 #### [facility],[address] [place] [address] 98764 Neutrophils/100 WBC (Bld) 67.6 % Normal 46.0 - 76.0 [facility] Comment on above: Performed By: #### 2 02656 #### [facility],[address] [place] [address] 56321 PLATELET 455 x10EE3/UL High 150 - 450 [facility] Comment on above: Performed By: #### 2 85880 #### [facility],[address] [place] [address] 18729 Platelet mean volume (Bld) [Entitic vol] 7.9 fL Normal 6.6 - 10.5 [facility] Comment on above: Result Comment: AUTO MATED DIFFERENTIAL Performed By: #### 2 44363 #### [facility],[address] [place] [address] 03495 RBC 3.63 x 10EE6/UL Low 4.10 - 5.30 [facility] Comment on above: Performed By: #### 2 10381 #### [facility],[address] [place] [address] 71912 WBC 6.7 x 10EE3/UL Normal 4.5 - 10.8 [facility] Comment on above: Performed By: #### 2 06131 #### [facility],[address] [place] [address] 80513 CMP with eGFRon 09-13-2024 AGE 39 years Normal [facility] Comment on above: Performed By: #### 2 01380 #### [facility],[address] [place] [address] 22489 Albumin [Mass/Vol] 2.1 g/dL Low 3.4 - 5.0 [facility] Comment on above: Performed By: #### 2 48179 #### [facility],[address] [place] [address] 68703 Albumin/Globulin [Mass ratio] 0.4 {ratio} Low 0.9 - 1.6 [facility] Comment on above: Performed By: #### 2 13035 #### [facility],[address] [place] [address] 67940 ALK PHOS 95 U/L Normal 46 - 116 [facility] Comment on above: Performed By: #### 2 31626 #### [facility],[address] [place] [address] 91262 ALT [Catalytic activity/Vol] 25 U/L Normal 16 - 63 [facility] Comment on above: Performed By: #### 2 71226 #### [facility],[address] [place] [address] 30855 Anion gap [Moles/Vol] 12 mmol/L Normal 10 - 20 [facility] Comment on above: Performed By: #### 2 19244 #### [facility],[address] [place] [address] 92468 AST [Catalytic activity/Vol] 20 U/L Normal 13 - 39 [facility] Comment on above: Performed By: #### 2 28672 #### [facility],[address] [place] [address] 59563 B/C RATIO 24 ratio Normal 0 - 30 [facility] Comment on above: Performed By: #### 2 37624 #### [facility],[address] [place] [address] 97865 Bilirubin [Mass/Vol] 0.4 mg/dL Normal 0.2 - 1.0 [facility] Comment on above: Performed By: #### 2 63734 #### [facility],[address] [place] [address] 77002 Calcium [Mass/Vol] 8.7 mg/dL Normal 8.5 - 10.1 [facility] Comment on above: Performed By: #### 2 53928 #### [facility],[address] [place] [address] 69610 Chloride [Moles/Vol] 102 mmol/L Normal 98 - 107 [facility] Comment on above: Performed By: #### 2 27925 #### [facility],[address] [place] [address] 80771 CMP with eGFR Normal [facility] Comment on above: Result Comment: COMP REHENSIVE METABOLIC PANEL Performed By: #### 2 69505 #### [facility],[address] [place] [address] 80483 CO2 [Moles/Vol] 27.5 mmol/L Normal 21.0 - 32.0 [facility] Comment on above: Performed By: #### 2 64206 #### [facility],[address] [place] [address] 89840 Creatinine [Mass/Vol] 0.87 mg/dL Normal 0.55 - 1.02 [facility] Comment on above: Performed By: #### 2 64809 #### [facility],[address] [place] [address] 65223 GFR/1.73 sq M.predicted among non-blacks MDRD (S/P/Bld) [Vol rate/Area] mL/min/{1.73_m2} Normal 60 - 999 [facility] Comment on above: Performed By: #### 2 83011 #### [facility],[address] [place] [address] Result Comment: ACCO RDING TO THE NATIONAL KIDNEY DISEASE EDUCATION PROGRAM(NKDE), A NORMAL eGFR IS A VALUE GREATER THAN OR EQUAL TO 60 ML/MIN/1.73 SQ METERS. CHRONIC KIDNEY DISEASE: <60mL/MIN/1.73 SQ METERS KIDNEY FAILURE: <15mL/MIN/1.73 SQ METERS THIS TEST SHOULD ONLY BE USED FOR PATIENTS 18 YEARS OF AGE AND OLDER. Globulin (S) [Mass/Vol] 5.8 g/dL High 1.5 - 3.8 [facility] Comment on above: Performed By: #### 2 10114 #### [address] [address] Glucose [Mass/Vol] 74 mg/dL Normal 74 - 106 [facility] Comment on above: Performed By: #### 2 65622 #### [facility],[address] [place] [address] 00945 Potassium [Moles/Vol] 3.7 mmol/L Normal 3.5 - 5.1 [facility] Comment on above: Performed By: #### 2 70401 #### [facility],[address] [place] [address] 32668 Protein [Mass/Vol] 7.9 g/dL Normal 6.4 - 8.2 [facility] Comment on above: Performed By: #### 2 12934 #### [facility],[address] [place] [address] 06525 Sodium [Moles/Vol] 138 mmol/L Normal 136 - 145 [facility] Comment on above: Performed By: #### 2 46387 #### [facility],[address] [place] [address] 56175 Urea nitrogen [Mass/Vol] 21 mg/dL High 7 - 18 [facility] Comment on above: Performed By: #### 2 63268 #### [facility],[address] [place] [address] 89477 MAGNESIUMon 09-13-2024 Magnesium [Mass/Vol] 1.8 mg/dL Normal 1.8 - 2.4 [facility] Comment on above: Performed By: #### 2 21618 #### [facility],[address] [place] [address] 97177 CMP with eGFRon 09-10-2024 AGE 39 years Normal [facility] Comment on above: Performed By: #### 2 55738 ####[facility],[address] [place] [address] 20186 Albumin [Mass/Vol] 2.0 g/dL Low 3.4 - 5.0 [facility] Comment on above: Performed By: #### 2 54809 ####[facility],[address] [place] [address] 38131 Albumin/Globulin [Mass ratio] 0.4 {ratio} Low 0.9 - 1.6 [facility] Comment on above: Performed By: #### 2 63659 ####[facility],[address] [place] [address] 40055 ALK PHOS 93 U/L Normal 46 - 116 [facility] Comment on above: Performed By: #### 2 56302 ####[facility],[address] [place] [address] 46719 ALT [Catalytic activity/Vol] 26 U/L Normal 16 - 63 [facility] Comment on above: Performed By: #### 2 60470 ####[facility],[address] [place] [address] 83604 Anion gap [Moles/Vol] 7 mmol/L Low 10 - 20 [facility] Comment on above: Performed By: #### 2 11777 ####[facility],[address] [place] [address] 89966 AST [Catalytic activity/Vol] 22 U/L Normal 13 - 39 [facility] Comment on above: Performed By: #### 2 27085 ####[facility],[address] [place] [address] 60770 B/C RATIO 19 ratio Normal 0 - 30 [facility] Comment on above: Performed By: #### 2 91112 ####[facility],[address] [place] [address] 17381 Bilirubin [Mass/Vol] 0.3 mg/dL Normal 0.2 - 1.0 [facility] Comment on above: Performed By: #### 2 54659 ####[facility],[address] [place] [address] 65565 Calcium [Mass/Vol] 8.3 mg/dL Low 8.5 - 10.1 [facility] Comment on above: Performed By: #### 2 94916 ####[facility],[address] [place] [address] 84716 Chloride [Moles/Vol] 103 mmol/L Normal 98 - 107 [facility] Comment on above: Performed By: #### 2 92812 ####[facility],[address] [place] [address] 59562 CMP with eGFR Normal [facility] Comment on above: Result Comment: COMP REHENSIVE METABOLIC PANEL Performed By: #### 2 69711 ####[facility],[address] [place] [address] 99106 CO2 [Moles/Vol] 30.7 mmol/L Normal 21.0 - 32.0 [facility] Comment on above: Performed By: #### 2 23557 ####[facility],[address] [place] [address] 17146 Creatinine [Mass/Vol] 0.90 mg/dL Normal 0.55 - 1.02 [facility] Comment on above: Performed By: #### 2 24941 ####[facility],[address] [place] [address] 00834 GFR/1.73 sq M.predicted among non-blacks MDRD (S/P/Bld) [Vol rate/Area] mL/min/{1.73_m2} Normal 60 - 999 [facility] Comment on above: Performed By: #### 2 44207 ####[facility],[address] [place] [address] Result Comment: ACCO RDING TO THE NATIONAL KIDNEY DISEASE EDUCATION PROGRAM(NKDE), A NORMAL eGFR IS A VALUE GREATER THAN OR EQUAL TO 60 ML/MIN/1.73 SQ METERS. CHRONIC KIDNEY DISEASE: <60mL/MIN/1.73 SQ METERS KIDNEY FAILURE: <15mL/MIN/1.73 SQ METERS THIS TEST SHOULD ONLY BE USED FOR PATIENTS 18 YEARS OF AGE AND OLDER. Globulin (S) [Mass/Vol] 5.7 g/dL High 1.5 - 3.8 [facility] Comment on above: Performed By: #### 2 00344 ####[facility],[address] [place] [address] 74048 Glucose [Mass/Vol] 94 mg/dL Normal 74 - 106 [facility] Comment on above: Performed By: #### 2 72871 ####[facility],[address] [place] [address] 35128 Potassium [Moles/Vol] 3.5 mmol/L Normal 3.5 - 5.1 [facility] Comment on above: Performed By: #### 2 39148 ####[facility],[address] [place] [address] 41772 Protein [Mass/Vol] 7.7 g/dL Normal 6.4 - 8.2 [facility] Comment on above: Performed By: #### 2 43601 ####[facility],[address] [place] [address] 29258 Sodium [Moles/Vol] 137 mmol/L Normal 136 - 145 [facility] Comment on above: Performed By: #### 2 42431 ####[facility],[address] [place] [address] Urea nitrogen [Mass/Vol] 17 mg/dL Normal 7 - 18 [facility] Comment on above: Performed By: #### 2 93514 ####[facility],[address] [place] [address] MAGNESIUMon 09-10-2024 Magnesium [Mass/Vol] 1.7 mg/dL Low 1.8 - 2.4 [facility] Comment on above: Performed By: #### 2 07636 #### [facility],[address] [place] [address] CBC + DIFFon 09-06-2024 Baso # 0.04 x10EE3/UL Normal 0.00 - 0.10 [facility] Comment on above: Performed By: #### 2 68111 #### [facility],[address] [place] [address] 49157 Basophils/100 WBC (Bld) 0.4 % Normal 0.0 - 2.0 [facility] Comment on above: Performed By: #### 2 35987 #### [facility],[address] [place] [address] CBC + DIFF Normal [facility] Comment on above: Result Comment: CBC- COMPLETE BLOOD COUNT Performed By: #### 2 65791 #### [facility],[address] [place] [address] 08148 EO # 0.14 x10EE3/UL Normal 0.00 - 0.50 [facility] Comment on above: Performed By: #### 2 84356 #### [facility],[address] [place] [address] 38081 Eosinophils/100 WBC (Bld) 1.3 % Normal 0.0 - 7.0 [facility] Comment on above: Performed By: #### 2 18246 #### [facility],[address] [place] [address] Erythrocyte distribution width (RBC) [Ratio] 18.0 % High 12.0 - 15.6 [facility] Comment on above: Performed By: #### 2 49489 #### [facility],[address] [place] [address] Hematocrit (Bld) [Volume fraction] 27.9 % Low 34.0 - 46.0 [facility] Comment on above: Performed By: #### 2 65409 #### [facility],[address] [place] [address] Hemoglobin (Bld) [Mass/Vol] 9.1 g/dL Low 12.0 - 16.0 [facility] Comment on above: Performed By: #### 2 96726 #### [facility],[address] [place] [address] Lymph # 1.68 x10EE3/UL Normal 0.80 - 2.80 [facility] Comment on above: Performed By: #### 2 92696 #### [facility],[address] [place] [address] Lymphocytes/100 WBC (Bld) 16.1 % Low 20.0 - 45.0 [facility] Comment on above: Performed By: #### 2 01333 #### [facility],[address] [place], [place] [id number] MANUAL DIFF N/A Normal [facility] Comment on above: Performed By: #### 2 87907 #### [facility],[address] [place], [place] [id number] MCH (RBC) [Entitic mass] 27 pg Normal 27 - 33 [facility] Comment on above: Performed By: #### 2 54702 #### [facility],[address] [place], [place] [id number] MCHC 33 X10 3 Normal 32 - 36 [facility] Comment on above: Performed By: #### 2 21502 #### [facility],[address] [place] [address] MCV (RBC) [Entitic vol] 83 fL Normal 80 - 99 [facility] Comment on above: Performed By: #### 2 16489 #### [facility],[address] [place] [address] [place] # 0.87 x10EE3/UL Normal 0.20 - 1.00 [facility] Comment on above: Performed By: #### 2 14630 #### [facility],[address] [place] [address] MONOS % 8.4 % Normal 0.0 - 10.0 [facility] Comment on above: Performed By: #### 2 37617 #### [facility],[address] [place] [address] Morphology Stan (Bld) [Interp] N/A Normal [facility] Comment on above: Performed By: #### 2 71705 #### [facility],[address] [place] [address] Neut # 7.69 x10EE3/UL High 1.50 - 7.10 [facility] Comment on above: Performed By: #### 2 98823 #### [place] [address] Neutrophils/100 WBC (Bld) 73.8 % Normal 46.0 - 76.0 [facility] Comment on above: Performed By: #### 2 76758 #### [place] [address] PLATELET 722 x10EE3/UL High 150 - 450 [facility] Comment on above: Performed By: #### 2 82185 #### [facility],[address],[place] [address] Platelet mean volume (Bld) [Entitic vol] 7.5 fL Normal 6.6 - 10.5 [facility] Comment on above: Result Comment: AUTO MATED DIFFERENTIAL Performed By: #### 2 26889 #### [facility],[address] [place] [address] 29566 RBC 3.37 x 10EE6/UL Low 4.10 - 5.30 [facility] Comment on above: Performed By: #### 2 58463 #### [facility],[address] [place] [address] 05122 WBC 10.4 x 10EE3/UL Normal 4.5 - 10.8 [facility] Comment on above: Performed By: #### 2 94236 #### [facility],[address] [place] [address] 78787 CMP with eGFRon 09-06-2024 AGE 38 years Normal [facility] Comment on above: Performed By: #### 2 21131 ####[facility],[address] [place] [address] 97073 Albumin [Mass/Vol] 1.9 g/dL Low 3.4 - 5.0 [facility] Comment on above: Performed By: #### 2 23319 ####[facility],[address] [place] [address] 19835 Albumin/Globulin [Mass ratio] 0.3 {ratio} Low 0.9 - 1.6 [facility] Comment on above: Performed By: #### 2 64793 ####[facility],[address] [place] [address] 79278 ALK PHOS 97 U/L Normal 46 - 116 [facility] Comment on above: Performed By: #### 2 36671 ####[facility],[address] [place] [address] 83729 ALT [Catalytic activity/Vol] 29 U/L Normal 16 - 63 [facility] Comment on above: Performed By: #### 2 30748 ####[facility],[address] [place] [address] 71711 Anion gap [Moles/Vol] 9 mmol/L Low 10 - 20 [facility] Comment on above: Performed By: #### 2 72367 ####[facility],[address] [place] [address] 36699 AST [Catalytic activity/Vol] 28 U/L Normal 13 - 39 [facility] Comment on above: Performed By: #### 2 67491 ####[facility],[address] [place] [address] 87597 B/C RATIO 21 ratio Normal 0 - 30 [facility] Comment on above: Performed By: #### 2 23471 ####[facility],[address] [place] [address] 60165 Bilirubin [Mass/Vol] 0.3 mg/dL Normal 0.2 - 1.0 [facility] Comment on above: Performed By: #### 2 05258 ####[facility],[address] [place] [address] 11904 Calcium [Mass/Vol] 8.3 mg/dL Low 8.5 - 10.1 [facility] Comment on above: Performed By: #### 2 01880 ####[facility],[address] [place] [address] 80114 Chloride [Moles/Vol] 102 mmol/L Normal 98 - 107 [facility] Comment on above: Performed By: #### 2 58831 ####[facility],[address] [place] [address] 66535 CMP with eGFR Normal [facility] Comment on above: Result Comment: COMP REHENSIVE METABOLIC PANEL Performed By: #### 2 70371 ####[facility],[address] [place] [address] 52737 CO2 [Moles/Vol] 29.5 mmol/L Normal 21.0 - 32.0 [facility] Comment on above: Performed By: #### 2 68110 ####[facility],[address] [place] [address] 27339 Creatinine [Mass/Vol] 0.84 mg/dL Normal 0.55 - 1.02 [facility] Comment on above: Performed By: #### 2 69138 ####[facility],[address] [place] [address] 43249 GFR/1.73 sq M.predicted among non-blacks MDRD (S/P/Bld) [Vol rate/Area] mL/min/{1.73_m2} Normal 60 - 999 [facility] Comment on above: Performed By: #### 2 79609 ####[facility],[address] [place], [place] [address] Result Comment: ACCO RDING TO THE NATIONAL KIDNEY DISEASE EDUCATION PROGRAM(NKDE), A NORMAL eGFR IS A VALUE GREATER THAN OR EQUAL TO 60 ML/MIN/1.73 SQ METERS. CHRONIC KIDNEY DISEASE: <60mL/MIN/1.73 SQ METERS KIDNEY FAILURE: <15mL/MIN/1.73 SQ METERS THIS TEST SHOULD ONLY BE USED FOR PATIENTS 18 YEARS OF AGE AND OLDER. Globulin (S) [Mass/Vol] 6.3 g/dL High 1.5 - 3.8 [facility] Comment on above: Performed By: #### 2 69621 ####[facility],[address] [place] [address] 74371 Glucose [Mass/Vol] 137 mg/dL High 74 - 106 [facility] Comment on above: Performed By: #### 2 08823 ####[facility],[address] [place] [address] 06206 Potassium [Moles/Vol] 3.8 mmol/L Normal 3.5 - 5.1 [facility] Comment on above: Performed By: #### 2 65140 ####[facility],[address] [place] [address] 64255 Protein [Mass/Vol] 8.2 g/dL Normal 6.4 - 8.2 [facility] Comment on above: Performed By: #### 2 09647 ####[facility],[address] [place] [address] 13684 Sodium [Moles/Vol] 137 mmol/L Normal 136 - 145 [facility] Comment on above: Performed By: #### 2 58135 ####[facility],[address] [place] [address] 69109 Urea nitrogen [Mass/Vol] 18 mg/dL Normal 7 - 18 [facility] Comment on above: Performed By: #### 2 94442 ####[facility],[address] [place] [address] 23058 MAGNESIUMon 09-06-2024 Magnesium [Mass/Vol] 2.0 mg/dL Normal 1.8 - 2.4 [facility] Comment on above: Performed By: #### 2 26960 ####[facility],[address] [place] [address] 84123 PHOSPHORUSon 09-06-2024 Phosphate [Mass/Vol] 3.6 mg/dL Normal 2.6 - 4.7 [facility] Comment on above: Performed By: #### 2 46844 #### [facility],[address] [place] [address] 46515 Culture, Blood (WB)on 2024 CUB Blood cultures x2, f rom two different sites No growth in 5 days. Normal [facility] Comment on above: Performed By: #### M 200.1000 ####[facility] [address] [place], [address] 12 Lead EKGon 08-20-2024 12 Lead EKG Normal [facility] Abdomen/Pelvis W IV Cont ONL Yon 08-20-2024 Abdomen/Pelvis W IV Cont ONLY Normal [facility] CBC W/Diff, Automatedon 07-29 STOMATOCYTE RARE Normal [facility] Comment on above: Performed By: #### L 100.0100, L700.6800, L500.4050, L501.2450, L505.5000 ####[facility] [address] [place], [address] Anisocytosis Ql (Bld) 2+ Normal [facility] Comment on above: Performed By: #### L 100.0100, L700.6800, L500.4050, L501.2450, L505.5000 ####[facility] [address] [place], [address] MICROCYTIC 1+ Normal [facility] Comment on above: Performed By: #### L 100.0100, L700.6800, L500.4050, L501.2450, L505.5000 ####[facility] [address] [place], [address] OVALOCYTE RARE Normal [facility] Comment on above: Performed By: #### L 100.0100, L700.6800, L500.4050, L501.2450, L505.5000 ####[facility] [address] [place], [address] POLYCHROMASIA 2+ Normal [facility] Comment on above: Performed By: #### L 100.0100, L700.6800, L500.4050, L501.2450, L505.5000 ####[facility] [address] [place], [address] CTA Chst, Abd, Pel W and/or WOon 08-20-2024 CTA Chst, Abd, Pel W and/or WO Normal [facility] Comprehensive Metabolic Prof ilon 08-20-2024 Albumin [Mass/Vol] 3.0 g/dL Low 3.2-5.0 [facility] Comment on above: Performed By: #### L 100.0100, L700.6800, L500.4050, L501.2450, L505.5000 ####[facility] [address] [place], [address] Albumin/Globulin [Mass ratio] 0.5 {ratio} Low 0.9-2.4 [facility] Comment on above: Performed By: #### L 100.0100, L700.6800, L500.4050, L501.2450, L505.5000 ####[facility] [address] [place], [address] ALK P 98 U/L Normal 45-117 [facility] Comment on above: Performed By: #### L 100.0100, L700.6800, L500.4050, L501.2450, L505.5000 ####[facility] [address] [place], [address] ALT [Catalytic activity/Vol] 15 U/L Normal 13-56 [facility] Comment on above: Performed By: #### L 100.0100, L700.6800, L500.4050, L501.2450, L505.5000 ####[facility] [address] [place], [address] AST [Catalytic activity/Vol] 20 U/L Normal 15-37 [facility] Comment on above: Performed By: #### L 100.0100, L700.6800, L500.4050, L501.2450, L505.5000 ####[facility] [address] [place], [address] Bilirubin [Mass/Vol] 0.30 mg/dL Normal 0.20-1.00 [facility] Comment on above: Result Comment: For patients on eltrombopag therapy, use of Dimension [place] TBIL is not recommended. Performed By: #### L 100.0100, L700.6800, L500.4050, L501.2450, L505.5000 ####[facility] [address] [place], [address] BUN/CRE 10.9 RATIO Normal 10-20 [facility] Comment on above: Performed By: #### L 100.0100, L700.6800, L500.4050, L501.2450, L505.5000 ####[facility] [address] [place], [address] CA,Total 8.8 mg/dL Normal 8.5-10.1 [facility] Comment on above: Performed By: #### L 100.0100, L700.6800, L500.4050, L501.2450, L505.5000 ####[facility] [address] [place], [address] Chloride [Moles/Vol] 106 mmol/L Normal 98-107 [facility] Comment on above: Performed By: #### L 100.0100, L700.6800, L500.4050, L501.2450, L505.5000 ####[facility] [address] [place], [address] CO2 [Moles/Vol] 22.0 mmol/L Normal 21.0-32.0 [facility] Comment on above: Performed By: #### L 100.0100, L700.6800, L500.4050, L501.2450, L505.5000 ####[facility] [address] [place], [address] Creatinine [Mass/Vol] 1.29 mg/dL High 0.55-1.02 [facility] Comment on above: Result Comment: The validity of the calculated GFR GFRAA in patients over70 years has not been determined. Clinical correlation isessential. Performed By: #### L 100.0100, L700.6800, L500.4050, L501.2450, L505.5000 ####[facility] [address] [place], [address] ECRCL 71.07 ml/min Normal [facility] Comment on above: Performed By: #### L 100.0100, L700.6800, L500.4050, L501.2450, L505.5000 ####[facility] [address] [place], [address] EST GFR - AA 59 mL/min Low >60 [facility] Comment on above: Result Comment: Afri can Argentine GFR Calc Performed By: #### L 100.0100, L700.6800, L500.4050, L501.2450, L505.5000 ####[facility] [address] [place], [address] GAP 11 Normal 5-15 [facility] Comment on above: Performed By: #### L 100.0100, L700.6800, L500.4050, L501.2450, L505.5000 ####[facility] [address] [place], [address] GFR/1.73 sq M.predicted among non-blacks MDRD (S/P/Bld) [Vol rate/Area] 48 mL/min/{1.73_m2} Low >60 [facility] Comment on above: Result Comment: Non- GFR Calc Performed By: #### L 100.0100, L700.6800, L500.4050, L501.2450, L505.5000 ####[facility] [address] [place], [address] Globulin (S) [Mass/Vol] 5.6 g/dL High 2.2-4.2 [facility] Comment on above: Performed By: #### L 100.0100, L700.6800, L500.4050, L501.2450, L505.5000 ####[facility] [address] [place], [address] Glucose [Mass/Vol] 187 mg/dL High 74-106 [facility] Comment on above: Result Comment: Fast ing Glucose result greater than or equal to 126 mg/dLsuggests DIABETES MELLITUS per A.D.A. criteria. Performed By: #### L 100.0100, L700.6800, L500.4050, L501.2450, L505.5000 ####[facility] [address] [place], [address] Potassium [Moles/Vol] 3.6 mmol/L Normal 3.5-5.1 [facility] Comment on above: Performed By: #### L 100.0100, L700.6800, L500.4050, L501.2450, L505.5000 ####[facility] [address] [place], [address] Sodium [Moles/Vol] 139 mmol/L Normal 136-145 [facility] Comment on above: Performed By: #### L 100.0100, L700.6800, L500.4050, L501.2450, L505.5000 ####[facility] [address] [place], [address] T PROT 8.6 g/dL High 6.4-8.2 [facility] Comment on above: Performed By: #### L 100.0100, L700.6800, L500.4050, L501.2450, L505.5000 ####[facility] [address] [place], [address] Urea nitrogen [Mass/Vol] 14 mg/dL Normal 7-18 [facility] Comment on above: Performed By: #### L 100.0100, L700.6800, L500.4050, L501.2450, L505.5000 ####[facility] [address] [place], [address] Emergency Department Summary on 08-20-2024 Emergency Department Summary Normal [facility] Lactic Acidon 08-20-2024 Lactate [Moles/Vol] 2.2 mmol/L Invalid Interpretation Code 0.4-1.9 [facility] Comment on above: Order Comment: Y Result Comment: Crit ical Result(s) Called at: 06:12:44 08/20/2024 by:Rossana Wood. Results read back by same. Performed By: #### L 503.6005 ####[facility] [address] [place], [address] Lipaseon 08-20-2024 Lipase [Catalytic activity/Vol] 26 U/L Low 73-393 [facility] Comment on above: Performed By: #### L 100.0100, L700.6800, L500.4050, L501.2450, L505.5000 ####[facility] [address] [place], [address] Partial Thromboplast Timeon 08-20-2024 aPTT Coag (Bld) [Time] 20.9 s Low 24.1-36.2 [facility] Comment on above: Performed By: #### L 300.3900, L300.4310 ####[facility] [address] [place], [address] ,Serum,hCG Quali.on 08-20-2024 HCG, SERUM QUAL Negative Normal [facility] Comment on above: Performed By: #### L 100.0100, L700.6800, L500.4050, L501.2450, L505.5000 ####[facility] [address] [place], [address] Prothrombin Time w/INRon INR Coag (PPP) [Relative time] 1.2 {INR} Normal [facility] Comment on above: Performed By: #### L 300.3900, L300.4310 ####[facility] [address] [place], [address] PT Coag (PPP) [Time] 14.9 s Normal 11.7-14.9 [facility] Comment on above: Performed By: #### L 300.3900, L300.4310 ####[facility] [address] [place], [address] Urinalysis, Completeon 08-20 BACTERIA 3+ /hpf Normal None Seen [facility] Comment on above: Order Comment: CLEAN CATCH Performed By: #### L 400.0001 ####[facility] [address] [place], [address] EPI,SQUAMOUS 0-5 SEEN Normal 5-10 [facility] Comment on above: Order Comment: CLEAN CATCH Performed By: #### L 400.0001 ####[facility] [address] [place], [address] RBC 0-5 SEEN Normal 0-5 [facility] Comment on above: Order Comment: CLEAN CATCH Performed By: #### L 400.0001 ####[facility] [address] [place], [address] Mucus Ql (Urine sed) 0 SEEN Normal [facility] Comment on above: Order Comment: CLEAN CATCH Performed By: #### L 400.0001 ####[facility] [address] [place], [address] WBC 0 SEEN Normal 0-5 [facility] Comment on above: Order Comment: CLEAN CATCH Performed By: #### L 400.0001 ####[facility] [address] [place], [address] Urine Drug Screen (VISTA)on 08-20-2024 AMPHETAMINES Negative Normal <1000 ng/mL [facility] Comment on above: Performed By: #### L 100.0100, L700.6800, L500.4050, L501.2450, L505.5000 ####[facility] [address] [place], [address] BARBITIURATES Negative Normal < 200 ng/mL [facility] Comment on above: Performed By: #### L 100.0100, L700.6800, L500.4050, L501.2450, L505.5000 ####[facility] [address] [place], [place], [phone] BENZODIAZIPINE Negative Normal < 200 ng/mL [facility] Comment on above: Performed By: #### L 100.0100, L700.6800, L500.4050, L501.2450, L505.5000 ####[facility] [address] [place] [address] COCAINE Negative Normal < 300 ng/mL [facility] Comment on above: Performed By: #### L 100.0100, L700.6800, L500.4050, L501.2450, L505.5000 ####[facility] [address] [place] [address] ECSTACY Negative Normal < 500 ng/mL [facility] Comment on above: Performed By: #### L 100.0100, L700.6800, L500.4050, L501.2450, L505.5000 ####[facility] [address] [place] [address] METHADONE Negative Normal < 300 ng/mL [facility] Comment on above: Performed By: #### L 100.0100, L700.6800, L500.4050, L501.2450, L505.5000 ####[facility] [address] [place] [address] OPIATES Positive Abnormal < 300 ng/mL [facility] Comment on above: Performed By: #### L 100.0100, L700.6800, L500.4050, L501.2450, L505.5000 ####[facility] [address] [place] [address] PCP Negative Normal < 25 ng/mL [facility] Comment on above: Performed By: #### L 100.0100, L700.6800, L500.4050, L501.2450, L505.5000 ####[facility] [address] [place], [address] THC Negative Normal < 50 ng/mL [facility] Comment on above: Performed By: #### L 100.0100, L700.6800, L500.4050, L501.2450, L505.5000 ####[facility] [address] [place], [address] VISTA UDS PH 7 Normal [facility] Comment on above: Performed By: #### L 100.0100, L700.6800, L500.4050, L501.2450, L505.5000 ####[facility] [address] [place], [address] Emergency Department Summary on 08-16-2024 Emergency Department Summary Normal [facility] Foot min 3 Viewson 5 Foot min 3 Views Normal [facility] Comprehensive metabolic 2000 panelon 08-08-2024 Albumin [Mass/Vol] 3.8 g/dL Low 3.9 - 4.9 g/dL [facility] ALP [Catalytic activity/Vol] 109 U/L 34 - 123 U/L [facility] ALT [Catalytic activity/Vol] 13 U/L 7 - 38 U/L [facility] Anion gap [Moles/Vol] 12 mmol/L 8 - 15 mmol/L [facility] AST [Catalytic activity/Vol] 16 U/L 13 - 35 U/L [facility] Bilirubin [Mass/Vol] 0.3 mg/dL 0.2 - 1.3 mg/dL [facility] Calcium [Mass/Vol] 9.3 mg/dL 8.5 - 10. 2 mg/dL [facility] Chloride [Moles/Vol] 104 mmol/L 98 - 107 mmol/L [facility] CO2 [Moles/Vol] 23 mmol/L 22 - 30 mmol/L [facility] Creatinine [Mass/Vol] 1.01 mg/dL High 0.58 - 0.96 mg/dL [facility] GFR/1.73 sq M.predicted among non-blacks MDRD (S/P/Bld) [Vol rate/Area] 72 mL/min/{1.73_m2} - PINF [facility] Comment on above: Estimated Glomerular [...] 85 mg/dL 74 - 99 mg/dL [facility] Comment on above: The [place] Diab[employer] Association (ADA) provides guidance for [...] Standards of Medical Care in Diabetes 2016, [place] [employer]. Diabetes Care. 2016.39(Suppl 1). Potassium [Moles/Vol] 4 mmol/L 3.7 - 5.1 mmol/L [facility] Protein [Mass/Vol] 8.1 g/dL High 6.3 - 8.0 g/dL [facility] Sodium [Moles/Vol] 139 mmol/L 136 - 144 mmol/L [facility] Urea nitrogen [Mass/Vol] 6 mg/dL Low 7 - 21 mg/dL [facility] Iron and Iron binding capaci ty panelon 08-08-2024 Iron [Mass/Vol] 19 ug/dL Low 41 - 186 ug/dL [facility] Iron binding capacity [Mass/Vol] 483 ug/dL High 232 - 386 ug/dL [facility] Iron/TIBC [Molar ratio] 3.9 % Low 15.0 - 57.0 % [facility] No Panel Informationon 08-08 Interpretation and review of laboratory results Abnormal [facility] CBC W Auto Differential pane l (Bld)on 08-07-2024 Basophils (Bld) [#/Vol] 0.06 10*3/uL [facility] Basophils/100 WBC (Bld) 1 % [facility] Differential cell count method Nom (Bld) Auto [facility] Eosinophils (Bld) [#/Vol] 0.19 10*3/uL [facility] Eosinophils/100 WBC (Bld) 3.3 % [facility] Erythrocyte distribution width (RBC) [Ratio] 19.2 % High 11.5 - 15.0 % [facility] Hematocrit (Bld) [Volume fraction] 31.5 % Low 36.0 - 46.0 % [facility] Hemoglobin (Bld) [Mass/Vol] 8.5 g/dL Low 11.5 - 15.5 g/dL [facility] Immature granulocytes (Bld) [#/Vol] 0.03 10*3/uL [facility] Immature granulocytes/100 WBC (Bld) 0.5 % [facility] Interpretation and review of laboratory results Abnormal [facility] Lymphocytes (Bld) [#/Vol] 1.04 10*3/uL [facility] Lymphocytes/100 WBC (Bld) 17.8 % [facility] MCH (RBC) [Entitic mass] 19.3 pg Low 26.0 - 34.0 pg [facility] MCHC (RBC) [Mass/Vol] 27 g/dL Low 30.5 - 36.0 g/dL [facility] MCV (RBC) [Entitic vol] 71.4 fL Low 80.0 - 100.0 fL [facility] Monocytes (Bld) [#/Vol] 0.4 10*3/uL [facility] Monocytes/100 WBC (Bld) 6.9 % [facility] Neutrophils (Bld) [#/Vol] 4.11 10*3/uL [facility] Neutrophils/100 WBC (Bld) 70.5 % [facility] Nucleated RBC (Bld) [#/Vol] [facility] Nucleated RBC/100 WBC (Bld) [Ratio] 0 % /100 WBC [facility] Platelet mean volume (Bld) [Entitic vol] 9 fL 9.0 - 12.7 fL [facility] Platelets (Bld) [#/Vol] 602 10*3/uL High [facility] RBC (Bld) [#/Vol] 4.41 10*6/uL 3.90 - 5.2 0 m/uL [facility] WBC (Bld) [#/Vol] 5.83 10*3/uL [facility] HbA1c (Bld)on 08-07-2024 Average glucose Estimated from glycated hemoglobin (Bld) [Mass/Vol] 123 mg/dL [facility] Comment on above: eAG: (Estimated aver age glucose) is a calculated value from HgbA1c and is textile machinery sales representative of the average blood glucose level in the last 2-3 month period. HbA1c (Bld) [Mass fraction] 5.9 % High 4.3 - 5.6 % [facility] Comment on above: [place] Diabetes As sociation guidelines indicate that patients with HgbA1c in the range 5.7-6.4% are at increased risk for development of diabetes, and intervention by lifestyle modification may be beneficial. HgbA1c greater or equal to 6.5% is considered diagnostic of diabetes. Interpretation and review of laboratory results Abnormal [facility] 12 Lead EKGon 07-30-2024 12 Lead EKG Normal [facility] Basic Metabolic Profile (BMP )on 07-30-2024 Potassium [Moles/Vol] 2.7 mmol/L Invalid Interpretation Code 3.5-5.1 [facility] Comment on above: Result Comment: RESU LTS CALLED TO NONI 07/30/241705 Jami Draper.REPORT READ BACK BY . SAME AMENDED REPORT 07/30/241705 K previously reported as: 2.7 *L mmol/L Performed By: #### L 100.0100, L700.6800, L500.2500, L300.3900, L300.4310 ####[facility] [address] [place], [address] CBC W/Diff, Automatedon Absolute Lymph 1.10 X10 3/uL Normal 0.83-4.51 [facility] Comment on above: Performed By: #### L 100.0100, L700.6800, L500.2500, L300.3900, L300.4310 ####[facility] [address] [place], [address] Absolute Neut 8.0 X10 3/uL High 2.0-7.7 [facility] Comment on above: Performed By: #### L 100.0100, L700.6800, L500.2500, L300.3900, L300.4310 ####[facility] [address] [place], [address] Basophils/100 WBC (Bld) 0.6 % Normal 0-1 [facility] Comment on above: Performed By: #### L 100.0100, L700.6800, L500.2500, L300.3900, L300.4310 ####[facility] [address] [place], [address] Eosinophils/100 WBC (Bld) 1.6 % Normal 0-5 [facility] Comment on above: Performed By: #### L 100.0100, L700.6800, L500.2500, L300.3900, L300.4310 ####[facility] [address] [place], [address] Erythrocyte distribution width (RBC) [Ratio] 18.5 % High 11.6-14.6 [facility] Comment on above: Performed By: #### L 100.0100, L700.6800, L500.2500, L300.3900, L300.4310 ####[facility] [address] [place], [address] Hematocrit (Bld) [Volume fraction] 29.3 % Low 37-47 [facility] Comment on above: Performed By: #### L 100.0100, L700.6800, L500.2500, L300.3900, L300.4310 ####[facility] [address] [place], [address] Hemoglobin (Bld) [Mass/Vol] 8.3 g/dL Low 12.0-15.0 [facility] Comment on above: Performed By: #### L 100.0100, L700.6800, L500.2500, L300.3900, L300.4310 ####[facility] [address] [place], [address] IG% 0.400 Normal 0.0-0.9 [facility] Comment on above: Result Comment: IG% - Immature Granulocytes (promyelocytes, myelocytes andmetamyelocytes) > 1% indicates that a LEFT SHIFT is Present. Performed By: #### L 100.0100, L700.6800, L500.2500, L300.3900, L300.4310 ####[facility] [address] [place], [address] Lymphocytes/100 WBC (Bld) 11.0 % Low 19-41 [facility] Comment on above: Performed By: #### L 100.0100, L700.6800, L500.2500, L300.3900, L300.4310 ####[facility] [address] [place], [address] MCH (RBC) [Entitic mass] 19.6 pg Low 27.0-32.0 [facility] Comment on above: Performed By: #### L 100.0100, L700.6800, L500.2500, L300.3900, L300.4310 ####[facility] [address] [place], [address] MCHC (RBC) [Mass/Vol] 28.3 g/dL Low 32-36 [facility] Comment on above: Performed By: #### L 100.0100, L700.6800, L500.2500, L300.3900, L300.4310 ####[facility] [address] [place], [address] MCV (RBC) [Entitic vol] 69.1 fL Low 81-99 [facility] Comment on above: Performed By: #### L 100.0100, L700.6800, L500.2500, L300.3900, L300.4310 ####[facility] [address] [place], [address] Monocytes/100 WBC (Bld) 7.1 % Normal 0-10 [facility] Comment on above: Performed By: #### L 100.0100, L700.6800, L500.2500, L300.3900, L300.4310 ####[facility] [address] [place], [address] Neutrophils/100 WBC (Bld) 79.3 % High 47-70 [facility] Comment on above: Performed By: #### L 100.0100, L700.6800, L500.2500, L300.3900, L300.4310 ####[facility] [address] [place], [address] Nucleated RBC (Bld) [#/Vol] 0 10*3/uL Normal 0-5 [facility] Comment on above: Performed By: #### L 100.0100, L700.6800, L500.2500, L300.3900, L300.4310 ####[facility] [address] [place], [address] Platelet mean volume (Bld) [Entitic vol] 8.9 fL Normal 6.2-12.0 [facility] Comment on above: Performed By: #### L 100.0100, L700.6800, L500.2500, L300.3900, L300.4310 ####[facility] [address] [place], [address] Platelets (Bld) [#/Vol] 466 10*3/uL High 150-450 [facility] Comment on above: Performed By: #### L 100.0100, L700.6800, L500.2500, L300.3900, L300.4310 ####[facility] [address] [place], [address] RBC (Bld) [#/Vol] 4.24 10*6/uL Normal 4.2-5.4 [facility] Comment on above: Performed By: #### L 100.0100, L700.6800, L500.2500, L300.3900, L300.4310 ####[facility] [address] [place], [address] RDW SD 45.1 fl High 35.1-43.9 [facility] Comment on above: Performed By: #### L 100.0100, L700.6800, L500.2500, L300.3900, L300.4310 ####[facility] [address] [place], [address] WBC (Bld) [#/Vol] 10.0 10*3/uL Normal 4.4-11.0 [facility] Comment on above: Performed By: #### L 100.0100, L700.6800, L500.2500, L300.3900, L300.4310 ####[facility] [address] [place], [address] Chest 1 View (Portable)on Chest 1 View (Portable) Normal [facility] Emergency Department Summary on 07-30-2024 Emergency Department Summary Normal [facility] Ferritinon 07-30-2024 Ferritin [Mass/Vol] 11 ng/mL Normal 8-252 [facility] Comment on above: Performed By: #### L 503.6030, L503.9684 ####[facility] [address] [place], [address] Iron+Iron Binding Capacityon 07-30-2024 Iron [Mass/Vol] 12 ug/dL Low 50-170 [facility] Comment on above: Performed By: #### L 503.6030, L503.6550 ####[facility] [address] [place], [address] IRON SATURATION 2.5 Low 15.0-55.0 [facility] Comment on above: Performed By: #### L 503.6030, L503.6550 ####[facility] [address] [place], [address] TIBC 480 ug/dL High 250-450 [facility] Comment on above: Performed By: #### L 503.6030, L503.6550 ####[facility] [address] [place], [address] Partial Thromboplast Timeon 07-30-2024 aPTT Coag (Bld) [Time] 28.8 s Normal 24.1-36.2 [facility] Comment on above: Performed By: #### L 100.0100, L700.6800, L500.2500, L300.3900, L300.4310 ####[facility] [address] [place], [address] ,Serum,hCG Quali.on 07-30-2024 HCG, SERUM QUAL Negative Normal [facility] Comment on above: Performed By: #### L 100.0100, L700.6800, L500.2500, L300.3900, L300.4310 ####[facility] [address] [place], [address] Prothrombin Time w/INRon INR Coag (PPP) [Relative time] 1.1 {INR} Normal [facility] Comment on above: Performed By: #### L 100.0100, L700.6800, L500.2500, L300.3900, L300.4310 ####[facility] [address] [place], [address] PT Coag (PPP) [Time] 14.0 s Normal 11.7-14.9 [facility] Comment on above: Performed By: #### L 100.0100, L700.6800, L500.2500, L300.3900, L300.4310 ####[facility] [address] 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 The patient completed Some college. The patient described their childhood as 'ideal'. The patient lives with a roommate in an house (owned by roommate). Feels safe. No guns The patient has 1 child (10yrs). Shared custody with father. 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 No disability. Service: None Legal: 18 - 2 charges of drug trafficking. No fdc time. No DUI/TRAVON Trauma/Abuse: Denies Psychosocial Supports: [...] psych meds in 2017 2) 2017 @ [place] for SI (pink slipped from crisis line) 3) 2021 - [place] [facility] for SI # of past suicide attempts and methods used:OD in 2017 Intensive outpatient program: 2018 at [facility] - didn't think it was helpful Residential treatment: Denies Prior Diagnosis: Anxiety Disorder, Bipolar Affective Disorder, Borderline Personality Disorder, and Panic Disorder Prior Provider: Followed by PCP Fredrick Boland. Referred to current psych provider. Therapist: Followed at [facility] ([facility] by [facility]. Monthly check-in Past psychotherapy experience: Extensive Current Manager Clinical Services: None Electroconvulsive therapy (ECT): Denies Transcranial magnetic [...] start on next (more content not included)... [facility] HISTORY PHYSICALon 3 HISTORY PHYSICAL HNO ID: [id number] Author: Esa Guillen APRN.JUMBO OPERATOR Service: ? Author Type: Nurse Practitioner Type: [...] REFERRAL SOURCE: Psychiatrist - Clayton Granados CNP ([facility]). Last visit 08/16/22 CHIEF COMPLAINT: Treatment [...] The patient was born and raised in [place]. The patient completed Some college. The patient described their childhood as 'ideal'. The patient lives with a roommate in an house (owned by roommate). Feels safe. No guns The patient has 1 child (10yrs). Shared custody with father. 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 No disability. Service: None Legal: 18 - 2 charges of drug trafficking. No fdc time. No DUI/TRAVON Trauma/Abuse: Denies Psychosocial Supports: [...] psych meds in 2017 2) 2017 @ [place] for SI (pink slipped from crisis line) 3) 2021 - [place] for SI # of past suicide attempts and methods used:OD in 2017 Intensive outpatient program: 2018 at [facility] - didn't think it was helpful Residential treatment: Denies Prior Diagnosis: Anxiety Disorder, Bipolar Affective Disorder, Borderline Personality Disorder, and Panic Disorder Prior Provider: Followed by PCP Fredrick Boland. Referred to current psych provider. Therapist: Followed at [facility] (practice) by Evans. Monthly check-in Past psychotherapy experience: Extensive Current Manager Clinical Services: None Electroconvulsive therapy (ECT): Denies Transcranial magnetic [...] week and st (more content not included)... [facility] 08-24-2022 [facility] Telephone (PSYRL) DALY EVANS ([id number]) 1985 F [facility] Date Time Provider Department 08/24/22 ARIELLA CORTES PSYRL During your visit today, we recorded the following information about you: Ariella Cortes RN 08/24/2022 1:42 PM Signed INTERNAL ([facility]) ECT Referral Received: 08/18/22 - [facility] From: Clayton Granados @ [facility] ECT Eval: TBD Left voicemail requesting callback in ECT office at [phone] to schedule ECT eval. Awaiting patient response. Ariella Cortes RN 08/30/2022 12:24 PM Addendum Scheduled ECT Eval scheduled on 09/30/22 @ 10am with Esa Guillen Patient encouraged to contact RN Industrial Manufacturing Technician at [phone] should any questions or concerns arise between now and then. Ariella Cortes RN 09/30/2022 3:22 PM Signed Patient to receive ECT and related care @ [facility]. MM ECT RN notified AND aware. INTERNAL ([facility]) ECT Referral Received: 08/18/22 - scanned into Epic From: Clayton Granados @ [facility] ECT Eval: 09/30/22 with Esa Guillen ECT [...] Encounter Status:Closed by ARIELLA CORTES on 08/24/22 [facility] TOX SCREEN ROUT URon 022 Amphetamines Confirm (U) [Mass/Vol] Negative Negative [facility] Barbiturates Urine Negative Negative [facility] Benzodiazepines Urine Negative Negative [facility] Cannabinoids, Urine Positive Abnormal Negative [facility] Cocaine Ql (U) Negative Negative [facility] Ethanol (U) [Mass/Vol] <11 mg/dL [facility] Opiates Screen Ql (U) Negative Negative [facility] oxyCODONE cutoff Screen (U) [Mass/Vol] Negative Negative [facility] Phencyclidine Ql (U) Negative Negative [facility] HEP B SURFACE ANTIGENon 04-28 HEP B SURFACE ANTIGEN Non-Reactive [facility] Comment on above: Result Comment: NONR EACTIVE - NEGATIVE FOR HEPATITIS B SURFACE ANTIGEN Performed By: #### H BSAG, HCVAB, HIV #### [facility] [address] [place] [address] HEPATITIS C ABon 05-25-2021 HEPATITIS C AB Non-Reactive [facility] Comment on above: Result Comment: NONR EACTIVE - <0.80 INDEX IS CONSIDERED NEGATIVE FOR IGG ANTIBODIES TO HCV. Performed By: #### M N, ALC #### [facility] [address] [place] [address] HIV AG/AB COMBOon 05-25-2021 HIV AG/AB COMBO Non-Reactive Normal [facility] Comment on above: Result Comment: NONR EACTIVE - NEGATIVE FOR ANTIBODIES TO HIV-1 AND HIV-2 AND p24 ANTIGEN. Performed By: #### M N, ALC #### [address] [address] ALCOHOLon 05-21-2021 Ethanol [Mass/Vol] 169.0 mg/dL Normal [facility] Comment on above: Result Comment: < 3 mg/dl NONE DETECTED 50-100 mg/dl MAY SHOW SIGNS OF INTOXICATION 300-500 mg/dl COMATOSE LEVEL Performed By: #### M N, ALC #### [address] [address] CBC with AUTO DIFFon 021 BAS0 % 0.30 % Normal 0-2 [facility] Comment on above: Performed By: #### C BC, DIFF (MANUAL) #### [address] [address] Basophils (Bld) [#/Vol] 0.0 10*3/uL Normal 0-0.1 [facility] Comment on above: Performed By: #### C BC, DIFF (MANUAL) #### [address] [address] Eosinophils (Bld) [#/Vol] 0.0 10*3/uL Normal 0.0-1.80 [facility] Comment on above: Performed By: #### C BC, DIFF (MANUAL) #### [address] [address] Eosinophils/100 WBC (Bld) 0.1 % Normal 0-8 [facility] Comment on above: Performed By: #### C BC, DIFF (MANUAL) #### [address] [address] GRAN # 11.7 K/uL High 2.2-9.1 [facility] Comment on above: Performed By: #### C BC, DIFF (MANUAL) #### [address] [address] GRAN % 79.6 % Normal 42-80 [facility] Comment on above: Performed By: #### C BC, DIFF (MANUAL) #### [address] [address] Hematocrit (Bld) [Volume fraction] 42.0 % Normal 37.0-47.0 [facility] Comment on above: Performed By: #### C BC, DIFF (MANUAL) #### [address] [address] Hemoglobin (Bld) [Mass/Vol] 14.3 g/dL Normal 12.0-16.0 [facility] Comment on above: Performed By: #### C BC, DIFF (MANUAL) #### [address] [address] Lymphocytes (Bld) [#/Vol] 2.2 10*3/uL Normal 1.0-4.0 [facility] Comment on above: Performed By: #### C BC, DIFF (MANUAL) #### [address] [address] Lymphocytes/100 WBC (Bld) 15.1 % Low 16-48 [facility] Comment on above: Performed By: #### C BC, DIFF (MANUAL) #### [address] [address] MCV (RBC) [Entitic vol] 93.2 fL Normal 80-97 [facility] Comment on above: Performed By: #### C BC, DIFF (MANUAL) #### [address] [address] MEAN CORPUSCULAR HGB 31.8 pg Normal 26.0-32.0 [facility] Comment on above: Performed By: #### C BC, DIFF (MANUAL) #### [address] [address] MEAN CORPUSCULAR HGB CONC 34.1 g/dL Normal 31.0-36.0 [facility] Comment on above: Performed By: #### C BC, DIFF (MANUAL) #### [address] [address] Monocytes (Bld) [#/Vol] 0.7 10*3/uL Normal 0.1-1.7 [facility] Comment on above: Performed By: #### C BC, DIFF (MANUAL) #### [address] [address] Monocytes/100 WBC (Bld) 4.9 % Normal 3-9 [facility] Comment on above: Performed By: #### C BC, DIFF (MANUAL) #### [facility] [address] [place] [address] Platelet mean volume (Bld) [Entitic vol] 6.9 fL Normal 6.6-10.5 [facility] Comment on above: Performed By: #### C BC, DIFF (MANUAL) #### [facility] [address] [place] [address] Platelets (Bld) [#/Vol] 418 10*3/uL Normal 140-450 [facility] Comment on above: Performed By: #### C BC, DIFF (MANUAL) #### [address] [place] [address] RBC (Bld) [#/Vol] 4.51 10*6/uL Normal 4.20-5.50 [facility] Comment on above: Performed By: #### C BC, DIFF (MANUAL) #### [address] [place] [address] RED CELL DISTRI WIDTH 13.0 % Normal 11.0-15.5 [facility] Comment on above: Performed By: #### C BC, DIFF (MANUAL) #### [address] [place] [address] WBC (Bld) [#/Vol] 14.7 10*3/uL High 4.0-11.0 [facility] Comment on above: Performed By: #### C BC, DIFF (MANUAL) #### [address] [place] [address] COMPREHENSIVE METABOLIC PANE Derick 05-21-2021 Albumin [Mass/Vol] 3.5 g/dL Normal 3.4-5.0 [facility] Comment on above: Performed By: #### M N, ALC #### [address] [place] [address] Albumin/Globulin [Mass ratio] 0.9 {ratio} Low 1.1-1.8 [facility] Comment on above: Performed By: #### M N, ALC #### [facility] [address] [place] [address] ALP [Catalytic activity/Vol] 64 U/L Normal 45-117 [facility] Comment on above: Performed By: #### M N, ALC #### [address] [place] [address] ALT [Catalytic activity/Vol] 29 U/L Normal 12-78 [facility] Comment on above: Performed By: #### M N, ALC #### [facility] [address] [place] [address] Anion gap [Moles/Vol] 9.0 mmol/L Low 11-23 [facility] Comment on above: Performed By: #### M N, ALC #### [facility] [address] [place] [address] AST [Catalytic activity/Vol] 20 U/L Normal 15-37 [facility] Comment on above: Performed By: #### M N, ALC #### [facility] [address] [place] [address] Bilirubin [Mass/Vol] 0.3 mg/dL Normal 0.2-1.0 [facility] Comment on above: Performed By: #### M N, ALC #### [address] [place] [address] Calcium [Mass/Vol] 8.5 mg/dL Normal 8.5-10.1 [facility] Comment on above: Performed By: #### M N, ALC #### [facility] [address] [place] [address] Chloride [Moles/Vol] 107 mmol/L Normal 98-107 [facility] Comment on above: Performed By: #### M N, ALC #### [facility] [address] [place] [address] CO2 [Moles/Vol] 27.0 mmol/L Normal 21-32 [facility] Comment on above: Performed By: #### M N, ALC #### [facility] [address] [place] [address] Creatinine [Mass/Vol] 0.80 mg/dL Normal 0.55-1.02 [facility] Comment on above: Performed By: #### M N, ALC #### [facility] [address] [place] [address] GFR > 60.0 [facility] Comment on above: Performed By: #### M N, ALC #### [facility] [address] [place] [address] GFR AM > 60.0 [facility] [facility] Comment on above: Result Comment: THE NORMAL LEVEL OF GFR VARIES ACCORDING TO AGE, SEX, AND BODY SIZE. A GFR LEVEL OF LESS THAN 60 ML/MIN REPRESENTS LOSS OF THE ADULT LEVEL OF NORMAL KIDNEY FUNCTION. Performed By: #### M N, ALC #### [facility] [address] [place] [address] Globulin (S) [Mass/Vol] 4.2 g/dL Normal 2.5-4.6 [facility] Comment on above: Performed By: #### M N, ALC #### [address] [place] [address] Glucose [Mass/Vol] 114 mg/dL High 70-100 [facility] Comment on above: Performed By: #### M N, ALC #### [address] [place] [address] Potassium [Moles/Vol] 3.3 mmol/L Low 3.5-5.1 [facility] Comment on above: Performed By: #### M N, ALC #### [address] [place] [address] Protein [Mass/Vol] 7.7 g/dL Normal 6.0-8.3 [facility] Comment on above: Performed By: #### M N, ALC #### [address] [place] [address] Sodium [Moles/Vol] 140 mmol/L Normal 136-145 [facility] Comment on above: Performed By: #### M N, ALC #### [address] [place] [address] Urea nitrogen [Mass/Vol] 6.0 mg/dL Low 7-18 [facility] Comment on above: Performed By: #### M N, ALC #### [address] [place] [address] CPKon 05-21-2021 CPK 359 U/L High 26-192 [facility] Comment on above: Performed By: #### C PK #### [facility] [address] [place] [address] DIFFERENTIALon 05-21-2021 IMMATURE GRANS NONE SEEN Normal [facility] Comment on above: Performed By: #### C BC, DIFF (MANUAL) #### [facility] [address] [place] [address] PLATELET ESTIMATE NORMAL Normal [facility] Comment on above: Performed By: #### C BC, DIFF (MANUAL) #### [address] [place] [address] RBC morphology finding Nom (Bld) ESSENTIALLY NORMAL Normal [facility] Comment on above: Performed By: #### C BC, DIFF (MANUAL) #### [facility] [address] [place] [address] Band form neutrophils/100 WBC (Bld) 6 % Normal 0-10 [facility] Comment on above: Performed By: #### C BC, DIFF (MANUAL) #### [facility] [address] [place] [address] Eosinophils/100 WBC (Bld) 1 % Normal 0-8 [facility] Comment on above: Performed By: #### C BC, DIFF (MANUAL) #### [facility] [address] [place] [address] Lymphocytes/100 WBC (Bld) 11 % Low 16-48 [facility] Comment on above: Performed By: #### C BC, DIFF (MANUAL) #### [address] [place] [address] Monocytes/100 WBC (Bld) 6 % Normal 3-9 [facility] Comment on above: Performed By: #### C BC, DIFF (MANUAL) #### [address] [place] [address] Neutrophils/100 WBC (Bld) 76 % Normal 42-80 [facility] Comment on above: Performed By: #### C BC, DIFF (MANUAL) #### [address] [place] [address] TOTAL CELLS COUNTED 100 #CELLS Normal [facility] Comment on above: Performed By: #### C BC, DIFF (MANUAL) #### [address] [place] [address] ED.PDOCon 05-21-2021 ED.PDOC DALY EVANS [id number] Attending provider: [facility] [id number] Bebeto Tafoya 1985 35 DOS: 05/21/21 Hx/Exam [...] 05/21/21 06:56 (Bebeto Tafoya) 05/21/21 09:51 LOVER,DALY Estrella Female [id number] Ordering physician: Yohana Bennett LOC:ER [id number] Attending physician: 1985 35 DO S: 05/21/21 [facility]#: [id number] Exam/Proc: HEAD W/O CONTRAST Dept: COMPUTED TOMOGRAPHY EXAMINATION: CT OF THE HEAD WITHOUT TBZSYCVN12/25/2021 8:[address] HEAD/BRAIN WITHOUT CONTRAST COMPARISON: [...] 05/21/2021 8:33:15 AM EST Workstation ID : [id number] REPORT SIGNATURE ON FILE Electronically Signed Date/Time: [...] police report and notes to this point. Medora slip written based on patient self-harm, statement of wanti (more content not included)... Normal [facility] HCG URINEon 05-21-2021 Beta HCG ( test) Ql (U) Negative Normal [facility] Comment on above: Order Comment: What Is Urine Source? Clean Catch [place] Performed By: #### H CGUR #### [address] [address] HEAD W/O CONTRASTon 05-21-20 21 HEAD W/O CONTRAST CRISTINADALYMANAN Grandasameer hakeem [id number] Ordering physician: Yohana Bennett LOC:ER [id number] Attending physician: 1985 35 DO S: 05/21/21 Acc#: [id number] Exam/Proc: HEAD W/O CONTRAST Dept: COMPUTED TOMOGRAPHY EXAMINATION: CT OF THE HEAD WITHOUT [id number]/25/2021 8:[address] HEAD/BRAIN WITHOUT CONTRAST COMPARISON: [...] 05/21/2021 8:33:15 AM EST Workstation ID : [id number] REPORT SIGNATURE ON FILE Electronically Signed Date/Time: 05/21/21832 Dictated Date/time: 05/21/21829 CC: Normal [facility] URINE DRUG SCREENon 05-21-20 21 AMPHETAMINES Positive Abnormal [facility] Comment on above: Order Comment: What Is Urine Source? Random Performed By: #### U DRGS #### [address] [address] Other Comment: URINE DRUG SCREENS ARE FOR [...] and can be ordered separately. BARBITURATES Negative [facility] Comment on above: Order Comment: What Is Urine Source? Random Performed By: #### U DRGS #### [address] [address] Other Comment: URINE DRUG SCREENS ARE FOR [...] and can be ordered separately. BENZODIAZEPINES Negative [facility] Comment on above: Order Comment: What Is Urine Source? Random Performed By: #### U DRGS #### [address] [address] Other Comment: URINE DRUG SCREENS ARE FOR [...] and can be ordered separately. COCAINE Negative [facility] Comment on above: Order Comment: What Is Urine Source? Random Performed By: #### U DRGS #### [facility] [address] [place] [address] Other Comment: URINE DRUG SCREENS ARE FOR [...] and can be ordered separately. METHADONE Negative [facility] Comment on above: Order Comment: What Is Urine Source? Random Performed By: #### U DRGS #### [facility] [address] [place] [address] Other Comment: URINE DRUG SCREENS ARE FOR [...] and can be ordered separately. OPIATES Negative [facility] Comment on above: Order Comment: What Is Urine Source? Random Performed By: #### U DRGS #### [facility] [address] [place] [address] Other Comment: URINE DRUG SCREENS ARE FOR [...] and can be ordered separately. PHENCYCLIDINE Negative [facility] Comment on above: Order Comment: What Is Urine Source? Random Performed By: #### U DRGS #### [facility] [address] [place] [address] Other Comment: URINE DRUG SCREENS ARE FOR [...] and can be ordered separately. THC Negative [facility] Comment on above: Order Comment: What Is Urine Source? Random Performed By: #### U DRGS #### [address] [address] Other Comment: URINE DRUG SCREENS ARE FOR [...] DRG SCREEN CUT OFF SEE BELOW Normal [facility] Comment on above: Order Comment: What Is Urine Source? Random Performed By: #### U DRGS #### [address] [address] Other Comment: URINE DRUG SCREENS ARE FOR [...] be ordered separately. [facility] WRIST-LEFT CMPL MIN 3 VIEWS DALY EVANS Female [id number] Ordering physician: Yohana Bennett LOC:ER [id number] Attending physician: 1985 35 DO S: 05/21/21 Acc#: [id number] Exam/Proc: WRIST-LEFT CMPL MIN 3 VIEWS Dept: [...] 05/21/2021 8:50:09 AM EST Workstation ID : [id number] REPORT SIGNATURE ON FILE Electronically Signed Date/Time: 05/21/2150 Dictated Date/time: 05/21/21842 CC: [facility] XR Knee - left 4 Viewson IMPRESSION: Findings are suggestive of mild degenerative changes in the left knee. Athletics Director: NANCY Transcribe Date/Time: Mar 12 2021 11:00A Dictated by : MATTY CASTELLON MD This examination was interpreted and the report reviewed and electronically signed by: MATTY CASTELLON MD on Mar 12 2021 11:01AM [facility] DIVISION OF RADIOLOGY * * [...] mild degenerative changes in the left knee. Athletics Director: NANCY Transcribe Date/Time: Mar 12 2021 11:00A Dictated by : MATTY CASTELLON MD This examination was interpreted and the report reviewed and electronically signed by: MATTY CASTELLON MD on Mar 12 2021 11:01AM EST [facility] Radiology Study observation (narrative) [facility] XR Knee - left 4 ViewsOrdere d By: Ccf Provider on 03-12-2021 [facility] TS GELon 02-07-2018 TS GEL ABO Group: O Rh, Gel: POS Antibody Screen Gel: NEG Normal [facility] Comment on above: Performed By: #### T SGL ####[employer] [place] [address] Basic Metabolic Panelon 01-25 Anion gap 3 molar conc 8 Normal [facility] Comment on above: Performed By: #### H EMDF, ESR, PT/AP, LACT3, QWNT, CRP2, BMP3 ####[employer] [place] [address] Calcium mass conc 8.8 mg/dL Normal 8.4-10.4 [facility] Comment on above: Performed By: #### H EMDF, ESR, PT/AP, LACT3, QWNT, CRP2, BMP3 ####[facility] [place], [place] CO2 molar conc 24 mmol/L Normal 22-30 [facility] Comment on above: Performed By: #### H EMDF, ESR, PT/AP, LACT3, QWNT, CRP2, BMP3 ####[place] [address] [place], [place] Glucose mass conc 89 mg/dL Normal 70-100 [facility] Comment on above: Performed By: #### H EMDF, ESR, PT/AP, LACT3, QWNT, CRP2, BMP3 ####[address] Urea nitrogen mass conc 10 mg/dL Normal 7-20 [facility] Comment on above: Performed By: #### H EMDF, ESR, PT/AP, LACT3, QWNT, CRP2, BMP3 ####[address] Creatinine mass conc 0.67 mg/dL Normal 0.52-1.25 [facility] Comment on above: Performed By: #### H EMDF, ESR, PT/AP, LACT3, QWNT, CRP2, BMP3 ####[address] GFR/1.73 sq M predicted among blacks MDRD vol rate/area (S/P/Bld) mL/min/{1.73_m2} Normal >60 [facility] Comment on above: Performed By: #### H EMDF, ESR, PT/AP, LACT3, QWNT, CRP2, BMP3 ####[address] [place], [place] GFR/1.73 sq M predicted among non-blacks MDRD vol rate/area (S/P/Bld) mL/min/{1.73_m2} Normal >60 [facility] Comment on above: Result Comment: Sour ce- MDRD equation with creatinine calibration to IDMS(NKDEP) eGFR not recommended for drug dose adjustment Performed By: #### H EMDF, ESR, PT/AP, LACT3, QWNT, CRP2, BMP3 ####[address] [place], [place] Chloride molar conc 108 mmol/L High 98-107 [facility] Comment on above: Performed By: #### H EMDF, ESR, PT/AP, LACT3, QWNT, CRP2, BMP3 ####[address] Potassium molar conc 3.7 mmol/L Normal 3.5-5.1 [facility] Comment on above: Performed By: #### H EMDF, ESR, PT/AP, LACT3, QWNT, CRP2, BMP3 ####[address] [place], [place] Sodium molar conc 140 mmol/L Normal 137-145 [facility] Comment on above: Performed By: #### H EMDF, ESR, PT/AP, LACT3, QWNT, CRP2, BMP3 ####[address] C-Reactive Proteinon 018 CRP mass conc 9.4 mg/L High 0.0-6.0 [facility] Comment on above: Result Comment: . Performed By: #### H EMDF, ESR, PT/AP, LACT3, QWNT, CRP2, BMP3 ####[address] Hemogram w/ Autodiffon 02-06 Abs Baso Cnt 0.0 10*3/uL Normal 0.0-0.2 [facility] Comment on above: Performed By: #### H EMDF, ESR, PT/AP, LACT3, QWNT, CRP2, BMP3 ####[address] [place], [place] Abs Neutrophile Cnt 4.8 10*3/uL Normal 1.8-7.0 [facility] Comment on above: Performed By: #### H EMDF, ESR, PT/AP, LACT3, QWNT, CRP2, BMP3 ####[address] [address] Basophils/100 WBC Auto (Bld) 0.3 % Normal 0.0-2.0 [facility] Comment on above: Performed By: #### H EMDF, ESR, PT/AP, LACT3, QWNT, CRP2, BMP3 ####[address] Eosinophils Auto #/vol (Bld) 0.1 10*3/uL Normal 0.0-0.5 [facility] Comment on above: Performed By: #### H EMDF, ESR, PT/AP, LACT3, QWNT, CRP2, BMP3 ####[address] Eosinophils/100 WBC Auto (Bld) 1.7 % Normal 1.0-6.0 [facility] Comment on above: Performed By: #### H EMDF, ESR, PT/AP, LACT3, QWNT, CRP2, BMP3 ####[address] Erythrocyte distribution width Auto Ratio (RBC) 14.5 % Normal 11.5-14.5 [facility] Comment on above: Performed By: #### H EMDF, ESR, PT/AP, LACT3, QWNT, CRP2, BMP3 ####[address] Granulocytes/100 WBC (Bld) 62.0 % Normal 40.0-80.0 [facility] Comment on above: Performed By: #### H EMDF, ESR, PT/AP, LACT3, QWNT, CRP2, BMP3 ####[address] Hematocrit Auto Volume Fraction (Bld) 40.4 % Normal 35.0-47.0 [facility] Comment on above: Performed By: #### H EMDF, ESR, PT/AP, LACT3, QWNT, CRP2, BMP3 ####[address] Hemoglobin mass conc (Bld) 13.7 g/dL Normal 11.7-16.0 [facility] Comment on above: Performed By: #### H EMDF, ESR, PT/AP, LACT3, QWNT, CRP2, BMP3 ####[address] Lymphocytes Auto #/vol (Bld) 2.3 10*3/uL Normal 1.0-4.3 [facility] Comment on above: Performed By: #### H EMDF, ESR, PT/AP, LACT3, QWNT, CRP2, BMP3 ####[address] Lymphocytes/100 WBC Auto (Bld) 29.4 % Normal 20.0-40.0 [facility] Comment on above: Performed By: #### H EMDF, ESR, PT/AP, LACT3, QWNT, CRP2, BMP3 ####[address] MCH Auto Entitic mass (RBC) 31.2 pg Normal 26.0-34.0 [facility] Comment on above: Performed By: #### H EMDF, ESR, PT/AP, LACT3, QWNT, CRP2, BMP3 ####[address] MCHC Auto mass conc (RBC) 33.9 % Normal 32.0-36.0 [facility] Comment on above: Performed By: #### H EMDF, ESR, PT/AP, LACT3, QWNT, CRP2, BMP3 ####[address] MCV Auto Entitic volume (RBC) 92.2 fL Normal 79.0-98.0 [facility] Comment on above: Performed By: #### H EMDF, ESR, PT/AP, LACT3, QWNT, CRP2, BMP3 ####[address] Monocytes Auto #/vol (Bld) 0.5 10*3/uL Normal 0.0-0.8 [facility] Comment on above: Performed By: #### H EMDF, ESR, PT/AP, LACT3, QWNT, CRP2, BMP3 ####[address] [place], [place] Monocytes/100 WBC Auto (Bld) 6.6 % Normal 2.0-10.0 [facility] Comment on above: Performed By: #### H EMDF, ESR, PT/AP, LACT3, QWNT, CRP2, BMP3 ####[address] [place], [place] Platelet mean volume Auto Entitic volume (Bld) 7.8 fL Normal 7.4-10.4 [facility] Comment on above: Performed By: #### H EMDF, ESR, PT/AP, LACT3, QWNT, CRP2, BMP3 ####[address] Platelets Auto #/vol (Bld) 282 10*3/uL Normal 140-440 [facility] Comment on above: Performed By: #### H EMDF, ESR, PT/AP, LACT3, QWNT, CRP2, BMP3 ####[address] [place], [place] RBC Auto #/vol (Bld) 4.38 10*6/uL Normal 3.80-5.20 [facility] Comment on above: Performed By: #### H EMDF, ESR, PT/AP, LACT3, QWNT, CRP2, BMP3 ####[address] [place], [place] WBC Auto #/vol (Bld) 7.8 10*3/uL Normal 3.6-10.7 [facility] Comment on above: Performed By: #### H EMDF, ESR, PT/AP, LACT3, QWNT, CRP2, BMP3 ####[address] [place], [place] Lactic Acidon 02-06-2018 Lactate molar conc 0.6 mmol/L Low 0.7-2.0 [facility] Comment on above: Performed By: #### H EMDF, ESR, PT/AP, LACT3, QWNT, CRP2, BMP3 ####[facility] [employer] [place] [place] Protime AND APTTon 8 INR Coag RelTime (PPP) 1.0 Normal 0.9-1.1 [facility] Comment on above: Result Comment: Soy mmended [...] EMDF, ESR, PT/AP, LACT3, QWNT, CRP2, BMP3 ####[facility] [employer] [place] Prothrombin time (PT) Coag time (PPP) 10.4 s Normal 9.0-12.0 [facility] Comment on above: Result Comment: . Performed By: #### H EMDF, ESR, PT/AP, LACT3, QWNT, CRP2, BMP3 ####[facility] [employer] [id number] [place] aPTT Coag time (Bld) 24.1 s Normal 20.0-30.5 [facility] Comment on above: Result Comment: NOTE : The therapeutic time for Heparin anticoagulation,based on Xa activity inhibition, is an APTT of 46-80seconds. Performed By: #### H EMDF, ESR, PT/AP, LACT3, QWNT, CRP2, BMP3 ####[facility] [employer] [place], [place] Sed Rateon 02-06-2018 Sed Rate 13 mm/h Normal 0-20 [facility] Comment on above: Performed By: #### H EMDF, ESR, PT/AP, LACT3, QWNT, CRP2, BMP3 ####[facility] [employer] [id number] [place] [address] hCG Quantitativeon 8 hCG Quantitative < 2 Normal < 3 [facility] Comment on above: Performed By: #### H EMDF, ESR, PT/AP, LACT3, QWNT, CRP2, BMP3 ####[facility] [id number] [place] [address] History And Physical-Dictate don 01-03-2018 Discharge Summary [facility], [place] [address]JPACDALY BRADY [facility] [id number] [id number] 1985ADMIT 12/08/2017DISCH 12/13/2017DISCHARGE SUMMARYREASON FOR ADMISSIONDaly Evans is a 32 years young, single female who was admitted asan emergency from [facility] on 12[facility]08[facility]2017 with history of increasingdepression and suicidal ideations. She reported multiple psychosocial issuesincluding recent break-up with a boyfriend, loss of adequate housing andunemployment since May,. She is also a single mother of a 5-year-old son. She was contemplating to take an overdose when she call [facility]'s crisis hotline, and following evaluation at [facility] emergency room, she was admitted for [...] at bedtime, Seroquel 300 mg at bedtime, Dwyzhsdr75 mg at bedtime and trazodone 100 mg [...] [facility] [place] [place].CONDITION AT TIME OF DISCHARGEImproved.LEOBARDO GEORGE, ONEAL 01/03/2018 11:07 [id number] 01/03/2018 11:21 CPP/MODLElectronically Signed By Zakiya George M.D. on 07 Jan 2018 17:56:48 GMT Normal [facility] History And Physical-Dictated [facility], [place] [address]DNQS DALY EVANS [facility] [id number] 1985ADMIT 12/08/2017HISTORY AND PHYSICALIDENTIFICATION DATADaly Evans is a 12-vtlut-pllhp single, female who was admitted asan emergency from [facility] on 12/08/2017.CHIEF COMPLAINTI was [facility] [...] suicide by taking an overdose, she called [facility]'s crisis hotline, [facility]. She reported that prior to thisadmission she was taking a number of medications as prescribed by nursepractitioner at [facility]. She was unable to identify all themedication and the strength.FAMILY HISTORYShe denied any knowledge of psychiatric illness in the family. However, shedid report that her only sibling, a brother, has Asperger syndrome andcurrently he lives at home with his parents.PAST PSYCHIATRIC HISTORYShe reported that she has been receiving outpatient treatment at [facility] off and on since the age of 13.She reported that she was admitted to [facility] in October 2017for 7 days following an overdose of trazodone, Prozac, and Lamictal.PERSONAL HISTORYShe is a 86-ictvm[age]prf young single, female, and mother of a [...] to 7 days.ZAKIYA GEORGE, ONEAL 12/09/2017 11:05 [id number] 12/09/2017 11:34 CPP/MODLElectronically Signed By Zakiya George M.D. on 11 Dec 2017 17:30:48 GMT Normal [address], [place] [address]VDHN DALY EVANS [facility] [id number] [id number] 1985DATE 12/12/2017PROGRESS NOTEDaly was seen individually and [...] with current treatmentplans.ZAKIYA GEORGE, ONEAL 12/12/2017 11:18 [id number] 12/12/2017 17:11 CPP/MODLElectronically Signed By Zakiya George M.D. on 14 Dec 2017 21:36:28 GMT Normal [facility] Lipid Panelon 12-09-2017 Cholesterol 168 mg/dL Normal 100-199 [facility] Comment on above: Performed By: #### T , LIPID ####Unless otherwise noted, all testing performed by [place] [address], [place] [phone]: [id number] Director: Willis Paulino M.D. Cholesterol in VLDL mass conc 21 mg/dL Normal 5-40 [facility] Comment on above: Performed By: #### T SH, LIPID ####Unless otherwise noted, all testing performed by [place] [phone]: [id number] Director: Willis Paulino M.D. Cholesterol to HDL Ratio 2.7 {ratio} Low 3.2-5.0 [facility] Comment on above: Result Comment: Jaqui palacio Coronary Heart Disease Risk Factor (CHDRF):Average risk= 4.41/2 Average risk= 3.32 times Average risk= 7.1 Performed By: #### T SH, LIPID ####Unless otherwise noted, all testing performed by [place] [address]CLIA: [id number] Director: Willis Paulino M.D. HDL Cholesterol 62 mg/dL High 40-[address] [facility] Comment on above: Performed By: #### T SH, LIPID ####Unless otherwise noted, all testing performed by [place] [address]CLIA: [id number] Director: Willis Paulino M.D. LDL Cholesterol 86 mg/dL Normal 10-[address] [facility] Comment on above: Performed By: #### T SH, LIPID ####Unless otherwise noted, all testing performed by [place] [address]CLIA: [id number] Director: Willis Paulino M.D. Triglyceride 105 mg/dL Normal 25-120 [facility] Comment on above: Performed By: #### T SH, LIPID ####Unless otherwise noted, all testing performed by [address] [phone]: [id number] Director: Willis Paulino M.D. TSHon 12-09-2017 Thyroid stimulating hormone (TSH) 1.70 uIU/mL Normal 0.320-5.000 [facility] Comment on above: Result Comment: Samp les from patients routinely receiving high dose biotin therapy(100-300 mg/day) may show falsely decreased results. Please correlateclinically. Performed By: #### T SH, LIPID ####Unless otherwise noted, all testing performed by [address] [phone]: [id number] Director: Willis Paulino M.D. Urinalysis, Routineon 2017 Bilirubin,Urine Negative Normal NEG;NEGATIV E [facility] Comment on above: Performed By: #### U A ####Unless otherwise noted, all testing performed by [address] [phone]: [id number] Director: Willis Paulino M.D. Blood,Urine Negative Normal NEG;NEGATIV E [facility] Comment on above: Performed By: #### U A ####Unless otherwise noted, all testing performed by [address] [phone]: [id number] Director: Willis Paulino M.D. Character Clear [facility] Comment on above: Performed By: #### U A ####Unless otherwise noted, all testing performed by [address] [phone]: [id number] Director: Willis Paulino M.D. Ketone,Urine Negative Normal NEG;NEGATIV E [facility] Comment on above: Performed By: #### U A ####Unless otherwise noted, all testing performed by [address] [phone]: [id number] Director: Willis Paulino M.D. Leuk.Esterase,Urine Negative Normal Negative [facility] Comment on above: Performed By: #### U A ####Unless otherwise noted, all testing performed by [address] [phone]: [id number] Director: Willis Paulino M.D. Nitrite,Urine Negative Normal NEG;NEGATIV E [facility] Comment on above: Performed By: #### U A ####Unless otherwise noted, all testing performed by [address] [phone]: [id number] Director: Willis Paulino M.D. Protein,Urine Negative Normal NEG;NEGATIV E [facility] Comment on above: Performed By: #### U A ####Unless otherwise noted, all testing performed by [address] [phone]: [id number] Director: Willis Paulino M.D. Specific [place],Urine 1.006 Normal 1.003-1.029 [facility] Comment on above: Performed By: #### U A ####Unless otherwise noted, all testing performed by [address], [place] [id number]: [id number] Director: Willis Paulino M.D. Squamous Epithelial 2 /HPF Normal 0-40 [facility] Comment on above: Performed By: #### U A ####Unless otherwise noted, all testing performed by [address] [id number]: [id number] Director: Willis Paulino M.D. Urine, color Yellow Normal [facility] Comment on above: Performed By: #### U A ####Unless otherwise noted, all testing performed by [address] [id number]: [id number] Director: Willis Paulino M.D. Urine, glucose presence Negative Normal NEG;NEGATIV E [facility] Comment on above: Performed By: #### U A ####Unless otherwise noted, all testing performed by [address] [id number]: [id number] Director: Willis Paulino M.D. Urine, leukocytes in sedmiment /[HPF] Normal 0-5 [facility] Comment on above: Performed By: #### U A ####Unless otherwise noted, all testing performed by [address] [id number]: [id number] Director: Willis Paulino M.D. Urine, pH 7.0 [pH] Normal 4.5-8.0 [facility] Comment on above: Performed By: #### U A ####Unless otherwise noted, all testing performed by [place] [address] [place] [place], [place] [id number]: [id number] Director: Willis Paulino M.D. Urobilinogen,Urine < 2.0 Normal <2 [facility] Comment on above: Performed By: #### U A ####Unless otherwise noted, all testing performed by [address] [id number]: [id number] Director: Willis Paulino M.D. Vital Signs Date Time Vital Sign Value Performing Clinician Facility 03-01-2025 10:40-0400 Body mass index (BMI) [Ratio] 28.97 kg/m2 Xochilt Gaston SALES ENGINEER ACCOUNT MANAGER.JUMBO OPERATOR Work Phone: [facility] 03-01-2025 10:40-0400 Body weight 83.92 kg Xochilt Gaston SALES ENGINEER ACCOUNT MANAGER.JUMBO OPERATOR Work Phone: [facility] 03-01-2025 10:40-0400 Diastolic blood pressure 70 mm[Hg] Xochilt Collins n SALES ENGINEER ACCOUNT MANAGER.JUMBO OPERATOR Work Phone: [facility] 03-01-2025 10:40-0400 Heart rate 102 /min Xochilt Cohnman SALES ENGINEER ACCOUNT MANAGER.JUMBO OPERATOR Work Phone: [facility] 03-01-2025 10:40-0400 Respiratory rate 16 /min Xochilt Marilin SALES ENGINEER ACCOUNT MANAGER.JUMBO OPERATOR Work Phone: [facility] 03-01-2025 10:40-0400 SaO2% (BldA) [Mass fraction] 97 % Xochilt Marilin SALES ENGINEER ACCOUNT MANAGER.JUMBO OPERATOR Work Phone: [facility] 03-01-2025 10:40-0400 Systolic blood pressure 118 mm[Hg] Xochilt Marilin SALES ENGINEER ACCOUNT MANAGER.JUMBO OPERATOR Work Phone: [facility] 01-28-2025 14:18-0400 Body mass index (BMI) [Ratio] 27.06 kg/m2 Ed Odessa SALES ENGINEER ACCOUNT MANAGER.JUMBO OPERATOR Work Phone: [facility] 01-28-2025 14:18-0400 Body weight 78.38 kg Ed Odessa SALES ENGINEER ACCOUNT MANAGER.JUMBO OPERATOR Work Phone: [facility] 01-28-2025 14:18-0400 Diastolic blood pressure 64 mm[Hg] Ed Odessa SALES ENGINEER ACCOUNT MANAGER.JUMBO OPERATOR Work Phone: [facility] 01-28-2025 14:18-0400 Heart rate 112 /min Ed Odessa SALES ENGINEER ACCOUNT MANAGER.JUMBO OPERATOR Work Phone: [facility] 01-28-2025 14:18-0400 Respiratory rate 14 /min Ed Odessa SALES ENGINEER ACCOUNT MANAGER.JUMBO OPERATOR Work Phone: [facility] 01-28-2025 14:18-0400 SaO2% (BldA) [Mass fraction] 98 % Ed Odessa SALES ENGINEER ACCOUNT MANAGER.JUMBO OPERATOR Work Phone: [facility] 01-28-2025 14:18-0400 Systolic blood pressure 112 mm[Hg] Ed Odessa SALES ENGINEER ACCOUNT MANAGER.JUMBO OPERATOR Work Phone: [facility] 01-10-2025 13:57-0400 Body mass index (BMI) [Ratio] 29.09 kg/m2 Ed Odessa SALES ENGINEER ACCOUNT MANAGER.JUMBO OPERATOR Work Phone: [facility] 01-10-2025 13:57-0400 Body weight 84.28 kg Ed Odessa SALES ENGINEER ACCOUNT MANAGER.JUMBO OPERATOR Work Phone: [facility] 01-10-2025 13:57-0400 Diastolic blood pressure 60 mm[Hg] Ed Odessa SALES ENGINEER ACCOUNT MANAGER.JUMBO OPERATOR Work Phone: [facility] 01-10-2025 13:57-0400 Heart rate 84 /min Ed Odessa SALES ENGINEER ACCOUNT MANAGER.JUMBO OPERATOR Work Phone: [facility] 01-10-2025 13:57-0400 SaO2% (BldA) [Mass fraction] 99 % Ed Odessa SALES ENGINEER ACCOUNT MANAGER.JUMBO OPERATOR Work Phone: [facility] 01-10-2025 13:57-0400 Systolic blood pressure 90 mm[Hg] Ed Saxena BENOIT Work Phone: [facility] 01-09-2025 11:00-0400 Body mass index (BMI) [Ratio] 29.59 kg/m2 Research Coordinator [facility] 01-09-2025 11:00-0400 Body weight 85.73 kg Research Coordinator [facility] Comment on above: per patient report using home weight sca 12-31-2024 09:50-0400 Body height 170.2 cm Kirit Devine MD Work Phone: [facility] 12-31-2024 09:50-0400 Body mass index (BMI) [Ratio] 29.62 kg/m2 Kirit Devine MD Work Phone: [facility] 12-31-2024 09:50-0400 Body temperature 97.39 [degF] Kirit Devine MD Work Phone: [facility] 12-31-2024 09:50-0400 Body weight 85.8 kg Kirit Devine MD Work Phone: [facility] 12-31-2024 09:50-0400 Diastolic blood pressure 77 mm[Hg] Kirit Devine MD Work Phone: [facility] 12-31-2024 09:50-0400 Heart rate 111 /min Kirit Devine MD Work Phone: [facility] 12-31-2024 09:50-0400 Respiratory rate 18 /min Kirit Devine MD Work Phone: [facility] 12-31-2024 09:50-0400 SaO2% (BldA) [Mass fraction] 98 % Kirit Devine MD Work Phone: [facility] 12-31-2024 09:50-0400 Systolic blood pressure 106 mm[Hg] Kirit Caldwell Work Phone: [facility] 12-12-2024 19:56-0400 SaO2% (BldA) [Mass fraction] 98 % FREDRICK BOLAND [facility] Comment on above: Order Comment: Specimen Type: ARTERIAL B LOOD SPECIMENOrdering Facility: [facility] Address: [address] [place] [address] Performed By: #### A LLBG ####[facility] LABCLIA [id number] [place] [id number] [place] 12-12-2024 18:09-0400 SaO2% (BldA) [Mass fraction] 99 % FREDRICK BOLAND [facility] Comment on above: Order Comment: Specimen Type: ARTERIAL B LOOD SPECIMENOrdering Facility: [facility] Address: [address] [place] [address] Performed By: #### A LLBG ####[facility] LABIA [id number] [place] [id number] [place] 12-12-2024 14:39-0400 SaO2% (BldA) [Mass fraction] 100 % FREDRICK BOLAND [facility] Comment on above: Order Comment: Specimen Type: ARTERIAL B LOOD SPECIMENOrdering Facility: [facility] Address: [address] [place] [address] Performed By: #### A LLMG ####[facility] LABIA [id number] [place] [id number] [place] 12-12-2024 14:06-0400 SaO2% (BldA) [Mass fraction] 100 % FREDRICK BOLAND [facility] Comment on above: Order Comment: Specimen Type: ARTERIAL B LOOD SPECIMENOrdering Facility: [facility] Address: [address] [place], [place] [id number] Performed By: #### A LLMG ####[facility] LABIA [id number] [place] [id number] [place] 12-12-2024 13:31-0400 SaO2% (BldA) [Mass fraction] 100 % FREDRICK BOLAND [facility] Comment on above: Order Comment: Specimen Type: ARTERIAL B LOOD SPECIMENOrdering Facility: [facility] Address: [address] [place] [address] Performed By: #### A LLMG ####[facility] [id number] [place] [id number] [facility] 12-12-2024 11:41-0400 SaO2% (BldA) [Mass fraction] 100 % FREDRICK BOLAND [facility] Comment on above: Order Comment: Specimen Type: ARTERIAL B LOOD SPECIMENOrdering Facility: [facility] Address: [address] [place] [address] Performed By: #### A LLMG ####[facility] [id number] [place] [id number] [facility] 12-12-2024 10:00-0400 SaO2% (BldA) [Mass fraction] 99 % FREDRICK BOLAND [facility] Comment on above: Order Comment: Specimen Type: ARTERIAL B LOOD SPECIMENOrdering Facility: [facility] Address: [address] [place] [address] Performed By: #### A LLMG ####[facility] [id number] [place] [id number] [facility] 10-02-2024 15:02-0400 Body height 169.5 cm Martín [employer] DO Work Phone: [facility] 10-02-2024 15:02-0400 Body mass index (BMI) [Ratio] 32.21 kg/m2 Martín [employer] DO Work Phone: [facility] 10-02-2024 15:02-0400 Body temperature 97.81 [degF] Martín [employer] DO Work Phone: [facility] 10-02-2024 15:02-0400 Body weight 92.53 kg Martín [employer] DO Work Phone: [facility] 10-02-2024 15:02-0400 Diastolic blood pressure 72 mm[Hg] Martín [employer] DO Work Phone: [facility] 10-02-2024 15:02-0400 Heart rate 114 /min Martín Ramiresi DO Work Phone: [facility] 10-02-2024 15:02-0400 SaO2% (BldA) [Mass fraction] 99 % Martín Ramiresi DO Work Phone: [facility] 10-02-2024 15:02-0400 Systolic blood pressure 101 mm[Hg] Martín Ramiresi DO Work Phone: [facility] 09-19-2024 12:21-0400 Diastolic blood pressure 92 mm[Hg] Angela Blackwood SALES ENGINEER ACCOUNT MANAGER.JUMBO OPERATOR Work Phone: [facility] 09-19-2024 12:21-0400 Heart rate 114 /min Angela Blackwood SALES ENGINEER ACCOUNT MANAGER.JUMBO OPERATOR Work Phone: [facility] 09-19-2024 12:21-0400 SaO2% (BldA) [Mass fraction] 96 % Angela Blackwood SALES ENGINEER ACCOUNT MANAGER.JUMBO OPERATOR Work Phone: [facility] 09-19-2024 12:21-0400 Systolic blood pressure 132 mm[Hg] Angela Blackwood SALES ENGINEER ACCOUNT MANAGER.JUMBO OPERATOR Work Phone: [facility] 08-16-2024 09:09-0500 Body mass index (BMI) [Ratio] 33.21 kg/m2 Xochilt Cohnman SALES ENGINEER ACCOUNT MANAGER.JUMBO OPERATOR Work Phone: [facility] 08-16-2024 09:09-0500 Body temperature 97.5 [degF] Xochilt Marilin SALES ENGINEER ACCOUNT MANAGER.JUMBO OPERATOR Work Phone: [facility] 08-16-2024 09:09-0500 Body weight 98.25 kg Xochilt Marilin SALES ENGINEER ACCOUNT MANAGER.JUMBO OPERATOR Work Phone: [facility] 08-16-2024 09:09-0500 Diastolic blood pressure 64 mm[Hg] Xochilt Stdanettema n SALES ENGINEER ACCOUNT MANAGER.JUMBO OPERATOR Work Phone: [facility] 08-16-2024 09:09-0500 Heart rate 104 /min Xochilt Marilin SALES ENGINEER ACCOUNT MANAGER.JUMBO OPERATOR Work Phone: [facility] 08-16-2024 09:09-0500 SaO2% (BldA) [Mass fraction] 98 % Xochilt Marilin SALES ENGINEER ACCOUNT MANAGER.JUMBO OPERATOR Work Phone: [facility] 08-16-2024 09:09-0500 Systolic blood pressure 106 mm[Hg] Xochilt Marilin SALES ENGINEER ACCOUNT MANAGER.JUMBO OPERATOR Work Phone: [facility] 08-07-2024 09:40-0500 Body height 172 cm Xochilt Marilin SALES ENGINEER ACCOUNT MANAGER.JUMBO OPERATOR Work Phone: [facility] 08-07-2024 09:40-0500 Body mass index (BMI) [Ratio] 33.12 kg/m2 Xochilt Marilin SALES ENGINEER ACCOUNT MANAGER.JUMBO OPERATOR Work Phone: [facility] 08-07-2024 09:40-0500 Body weight 97.98 kg Xochilt Marilin SALES ENGINEER ACCOUNT MANAGER.JUMBO OPERATOR Work Phone: [facility] 08-07-2024 09:40-0500 Diastolic blood pressure 72 mm[Hg] Xochilt Stdanettema n SALES ENGINEER ACCOUNT MANAGER.JUMBO OPERATOR Work Phone: [facility] 08-07-2024 09:40-0500 Heart rate 106 /min Xochilt Marilin SALES ENGINEER ACCOUNT MANAGER.JUMBO OPERATOR Work Phone: [facility] 08-07-2024 09:40-0500 SaO2% (BldA) [Mass fraction] 96 % Xochilt Marilin SALES ENGINEER ACCOUNT MANAGER.JUMBO OPERATOR Work Phone: [facility] 08-07-2024 09:40-0500 Systolic blood pressure 108 mm[Hg] Xochilt Marilin SALES ENGINEER ACCOUNT MANAGER.JUMBO OPERATOR Work Phone: [facility] 03-29-2022 12:23-0400 Body temperature 97.5 [degF] Fredrick Boland DO Work Phone: [facility] 03-29-2022 12:23-0400 Body weight 100.7 kg Fredrick Boland DO Work Phone: [facility] 03-29-2022 12:23-0400 Diastolic blood pressure 60 mm[Hg] Fredrick Boland DO Work Phone: [facility] 03-29-2022 12:23-0400 Heart rate 76 /min Fredrick Boland DO Work Phone: [facility] 03-29-2022 12:23-0400 Respiratory rate 16 /min Fredrick Boland DO Work Phone: [facility] 03-29-2022 12:23-0400 Systolic blood pressure 120 mm[Hg] Fredrick Boland DO Work Phone: [facility] 02-02-2022 09:00-0400 Body temperature 97.5 [degF] Fredrick Boland DO Work Phone: [facility] 02-02-2022 09:00-0400 Body weight 100.25 kg Fredrick Boland DO Work Phone: [facility] 02-02-2022 09:00-0400 Diastolic blood pressure 70 mm[Hg] Fredrick Boland DO Work Phone: [facility] 02-02-2022 09:00-0400 Heart rate 80 /min Fredrick Boland DO Work Phone: [facility] 02-02-2022 09:00-0400 Respiratory rate 16 /min Fredrick Boland DO Work Phone: [facility] 02-02-2022 09:00-0400 Systolic blood pressure 100 mm[Hg] Fredrick Boland DO Work Phone: [facility] 10-23-2021 08:43-0400 Body weight 97.52 kg Xochilt Marilin SALES ENGINEER ACCOUNT MANAGER.JUMBO OPERATOR Work Phone: [facility] 10-23-2021 08:43-0400 Diastolic blood pressure 82 mm[Hg] Xochilt Stozzie n SALES ENGINEER ACCOUNT MANAGER.JUMBO OPERATOR Work Phone: [facility] 10-23-2021 08:43-0400 Heart rate 79 /min Xochilt Marilin SALES ENGINEER ACCOUNT MANAGER.JUMBO OPERATOR Work Phone: [facility] 10-23-2021 08:43-0400 Respiratory rate 16 /min Xochilt Marilin SALES ENGINEER ACCOUNT MANAGER.JUMBO OPERATOR Work Phone: [facility] 10-23-2021 08:43-0400 SaO2% (BldA) [Mass fraction] 99 % Xochilt Marilin SALES ENGINEER ACCOUNT MANAGER.JUMBO OPERATOR Work Phone: [facility] 10-23-2021 08:43-0400 Systolic blood pressure 122 mm[Hg] Xochilt Marilin SALES ENGINEER ACCOUNT MANAGER.JUMBO OPERATOR Work Phone: [facility] Encounters Encounter Date Encounter Type Care Provider Facility Start: 05-02-2025 End: 05-02-2025 ambulatory KARTHIK PREBISH Facility:[facility] Start: 04-30-2025 End: 04-30-2025 ambulatory FREDRICK L BOLAND Facility:[facility] Start: 04-22-2025 ambulatory FREDRICK BOLAND DO Faci lity:A Start: 04-10-2025 End: 04-10-[address] [facility] Facility[facility] Start: 04-06-2025 ambulatory Yoseph Fonseca Facili ty:[facility] Start: 04-01-2025 End: 04-01-2025 ambulatory [facility] Facility:[facility] Start: 03-26-2025 ambulatory Fredrick Boland Facilit y:[facility] Start: 03-14-2025 End: 03-26-2025 ambulatory Yoseph Raymundo Facility:[facility] Start: 03-07-2025 End: 03-07-2025 ambulatory [facility] Facility:[facility] Start: 03-06-2025 End: 03-08-2025 ambulatory Xochilt Marilin SALES ENGINEER ACCOUNT MANAGER.JUMBO OPERATOR Work Phone: [facility] Comment on above: Gabapentin Refill Request Start: 03-05-2025 End: 03-05-2025 E-mail encounter from caregiver Clayton Granados APRN.CNP Work Phone: Psychiatry Start: 03-05-2025 End: 03-05-2025 Patient encounter procedure Clayton Granados APRN.JUMBO OPERATOR Work Phone: Psychiatry Comment on above: Appointment Start: 03-01-2025 End: 03-11-2025 Telephone encounter Intestinal Trans Coord Main Work Phone: [facility] Comment on above: Anticoagulation - In itial Consult Start: 03-01-2025 End: 03-01-2025 Office outpatient visit 25 minutes Xochilt Gaston SALES ENGINEER ACCOUNT MANAGER.JUMBO OPERATOR Work Phone: [facility] Comment on above: Short bowel syndrome , 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); Hypokalemia; Malnutrition of moderate degree (HCC); Anticoagulation management encounter; 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) Start: 03-01-2025 End: 03-01-2025 [facility]ulatory [facility] Facility[facility] Start: 02-28-2025 End: 03-01-2025 ambulatory Kirit Devine MD Work Phone: [facility] Comment on above: Attn Libia Start: 02-26-2025 End: 02-26-2025 [facility] Clayton Granados APRN.JUMBO OPERATOR Work Phone: Psychiatry Comment on above: Anxiety [...] Manuel Byrd ) Start: 02-19-2025 ambulatory Donte Cee ty:[facility] Start: 02-19-2025 End: 02-23-2025 Evaluation and management of inpatient Donte Espinal Facility:[facility] Start: 02-14-2025 End: 02-24-2025 ambulatory Yoseph Fonseca Facility:[facility] Start: 02-11-2025 End: 02-11-2025 ambulatory Fredrick Boland DO Work Phone: [facility] Start: 02-11-2025 End: 02-11-2025 Patient encounter procedure Fredrick Boland DO Work Phone: [facility] Comment on above: Referral Start: 02-11-2025 End: 02-12-2025 Telephone encounter Fredrick Boland DO Work Phone: [facility] [place] Comment on above: Consult Start: 02-08-2025 [...] Start: 02-05-2025 End: 02-05-2025 ambulatory Fredrick Boland Facility:[facility] Start: 02-05-2025 End: 02-05-2025 ambulatory Ed Saxena Facility:[facility] Start: 01-28-2025 End: 01-28-2025 Office outpatient visit 25 minutes Ed Saxena APRN.CNP Work Phone: [facility] Comment on above: 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); Anticoagulation management encounter; Short bowel syndrome, 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; Malnutrition of moderate degree (HCC); Hypokalemia; Anemia, unspecified type; PICC (peripherally inserted central catheter) in place Start: 01-28-2025 End: 01-28-2025 ambulatory FREDRICK BOLAND Facility:[facility] Start: 01-28-2025 End: 01-28-2025 Telephone encounter Jigna HowellRn) [facility] Comment on above: Research (JOSEPH JONATAN / [id number]) Start: 01-24-2025 End: 01-24-2025 Telephone encounter [employer] Work Phone: Gastroenterology Start: 01-24-2025 End: 01-24-2025 ambulatory Yoseph Raymundo Facility:[facility] Start: 01-23-2025 End: 01-23-2025 Telephone encounter [employer] Work Phone: Gastroenterology Start: 01-22-2025 End: 01-22-2025 ambulatory [employer] Work Phone: Gastroenterology Start: 01-21-2025 End: 01-21-2025 ambulatory FREDRICK BOLAND Facility:[facility] Start: 01-17-2025 End: 01-17-2025 Telephone encounter [employer] Work Phone: Gastroenterology Start: 01-15-2025 End: 01-24-2025 Follow-up encounter Ed Saxena APRN.JUMBO OPERATOR Work Phone: [facility] Comment on above: Results Start: 01-14-2025 End: 01-14-2025 Telephone encounter Ed Saxena APRN.JUMBO OPERATOR Work Phone: [facility] Start: 01-11-2025 End: 01-11-2025 ambulatory CLAYTON GRANADOS Facility:[facility] Start: 01-11-2025 End: 01-11-2025 [facility] Clayton Granados APRN.JUMBO OPERATOR Work Phone: Psychiatry Comment on above: ELIJAH (generalized anx iety disorder) (Primary Dx); Anxiety about health; Bipolar II disorder (HCC); Encounter for long-term (current) use of medications; Insomnia due to other mental disorder Start: 01-10-2025 End: 01-10-2025 ambulatory FREDRICK BOLAND Facility:[facility] Start: 01-10-2025 End: 01-10-2025 Office outpatient visit 40 minutes Ed Saxena APRN.JUMBO OPERATOR Work Phone: [facility] Comment on above: 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); Pain associated with surgical procedure; Removal of gilberto; Visit for suture removal; Screening for depression; Hypokalemia; Blood thinned due to long-term anticoagulant use Start: 01-10-2025 End: 01-10-2025 ambulatory FREDRICK L BOLAND Facility:[facility] Start: 01-09-2025 End: 01-09-2025 Telephone encounter Research Coordinator Clinical Research Comment on above: Research (IRB: [phone] [id number] Caring for OutPatiEnts after Acute Kidney Injury (COPE-JONATAN) trial PI: Dr. Juan Manuel Byrd) Start: 01-08-2025 End: 01-10-2025 Telephone encounter [employer] Work Phone: Gastroenterology Comment on above: Critical Lab Start: 01-08-2025 End: 01-08-2025 ambulatory Fredrick Britorison Facility:[facility] Start: 01-07-2025 End: 01-07-2025 Telephone encounter Larry Betancourt MD [facility] Department Comment on above: Fabric Transition of Care Start: 01-04-2025 End: 01-04-2025 Telephone encounter Dayan LUA Hematology/Oncology Start: 01-03-2025 End: 01-03-2025 Telephone encounter Dayan LUA Hematology/Oncology Start: 01-02-2025 End: 01-02-2025 Telephone encounter Jigna Rivera) [facility] Comment on above: Transition Of Care Start: 01-01-2025 End: 01-01-2025 Telephone encounter Fredrick Pinedaon Work Phone: NOC Comment on above: Transition Of Care Start: 01-01-2025 ambulatory Fredrick Boland Facilit y:[facility] Start: 12-31-2024 End: 12-31-2024 Patient encounter procedure Kirit Devine MD Work Phone: [facility] Comment on above: S/P exploratory lapa rotomy Start: 12-31-2024 End: 12-31-2024 ambulatory FREDRICK L BOLAND Facility:[facility] Start: 12-25-2024 End: 12-27-2024 ambulatory Jigna Rivera) [facility] Comment on above: Research (JOSEPH CHEUNG / [id number]) Research (JOSEPH-JONATAN Maday manuel/IRB: [id number]- Pharmacist Contact ) Start: 12-25-2024 End: 12-25-2024 Telephone encounter Intestinal Trans Coord Main Work Phone: [facility] Center Comment on above: Hospital F/U Transition Of Care ( RC f/u discharge LVM /) Start: 12-24-2024 End: 12-24-2024 ambulatory Fredrick Boland Facility:[facility] Start: 12-21-2024 End: 12-30-2024 Orders Only [...] questions, please feel call Yuri Salcedo at [phone]/) Start: 12-13-2024 End: 12-13-2024 Telephone encounter Intestinal Trans Coord Main Work Phone: Transplant Center Comment on above: Return Call Request Start: 11-28-2024 End: 11-28-2024 Telephone encounter Intestinal Trans Coord Main Work Phone: Transplant Center Comment on above: Return Call Request Start: 11-28-2024 End: 12-21-2024 Evaluation and management of inpatient SANDRA RILEY Facility:[facility] Start: 11-27-2024 End: 11-27-2024 Telephone encounter Kirit Devine MD Work Phone: Transplant Center Start: 11-21-2024 End: 11-23-2024 Evaluation and management of inpatient Taras Sue Facility:[facility] Start: 11-21-2024 ambulatory Taras Sue Fac ility:[facility] Start: 11-14-2024 ambulatory Joshua Nazario Facility:[facility] Start: 11-13-2024 End: 11-16-2024 ambulatory Fredrick Boland Facility:[facility] Start: 11-13-2024 End: 11-16-2024 Evaluation and management of inpatient Ashley Rosen Facility:[facility] Start: 11-12-2024 End: 11-12-2024 Telephone encounter [facility] Start: 11-06-2024 End: 11-06-2024 Telephone encounter Fredrick Boland DO Work Phone: [address] [place] [address] Comment on above: Transition Of Care ( Left V/m ) Start: 11-05-2024 End: 11-05-2024 Telephone encounter [facility] Start: 10-30-2024 End: 10-30-2024 Telephone encounter Larry Betancourt MD [facility] Department Comment on above: Fabric Transition of Care Start: 10-28-2024 ambulatory Taras F Linette Fac ility:[facility] Start: 10-28-2024 End: 11-05-2024 Evaluation and management of inpatient Taras F Linette Facility:[facility] Start: 10-26-2024 End: 10-26-2024 Patient encounter procedure Stephie Montoya MD Work Phone: Gastroenterology Comment on above: On total parenteral nutrition (TPN) (Primary Dx) Start: 10-19-2024 End: 10-26-2024 Evaluation and management of inpatient MICHAEL ELLIS Facility:[id number] Start: 10-19-2024 ambulatory MAGGIE PUTNAM [facility] Start: 10-19-2024 End: 10-19-2024 Emergency department patient visit HERBERT GANDHI [facility] Start: 10-09-2024 End: 10-12-2024 ambulatory ROSA MARIA BULLOCK Facility:[id number] Start: 10-09-2024 End: 10-10-2024 Telephone encounter Martín Pendleton DO Work Phone: Hematology/Oncology Comment on above: Results; Follow Up Start: 10-09-2024 End: 10-09-2024 [facility] Start: 10-08-2024 End: 10-12-2024 Telephone encounter Nico Bashir [facility] Trans[facility] Center Comment on above: Virtual Education Vi sit Start: 10-03-2024 End: 10-03-2024 Telephone encounter Martín Pendleton DO Work Phone: Hematology/Oncology Comment on above: Electronic Communica tion Start: 10-02-2024 End: 10-02-2024 Patient encounter procedure Martín Sameer Pendleton DO Work Phone: Hematology/Oncology Start: 10-02-2024 End: 10-03-2024 ambulatory Lab/[place] [facility] Work Phone: Hematology/Oncology Comment on above: [...] removal; Arterial occlusion; Acute lower limb ischemia; longterm (current) use of aspirin; 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 Start: 09-12-2024 End: 09-14-2024 Telephone encounter Martín [...] Start: 09-03-2024 End: 10-26-2024 ambulatory MAGGIE VO [facility] Start: 08-28-2024 End: 08-28-2024 Telephone encounter Akua Grigsby MD Work Phone: Vascular Medicine Start: 08-20-2024 End: 08-20-2024 ambulatory Katelyn Villagran SALES ENGINEER ACCOUNT MANAGER.JUMBO OPERATOR Work Phone: Critical Care Start: 08-20-2024 End: 09-03-2024 Evaluation and management of inpatient FREDRICK BOLAND Facility:[facility] Start: 08-20-2024 End: 08-20-2024 Emergency department patient visit Fredrick Boland Facility:[facility] Start: 08-16-2024 End: 08-16-2024 Emergency department patient visit Fredrick Britorison Facility:[facility] Start: 08-16-2024 End: 08-16-2024 ambulatory XOCHILT GASTON Facility:[facility] Start: 08-16-2024 End: 08-16-2024 Office outpatient visit 25 minutes Xochilt Gaston SALES ENGINEER ACCOUNT MANAGER.JUMBO OPERATOR Work Phone: Family Medicine [place] Comment on above: Productive cough (Pr imary Dx); Eczema, unspecified type Start: 08-08-2024 End: 08-29-2024 Follow-up encounter Xochilt Gaston APRN.JUMBO OPERATOR Work Phone: Family Medicine [place] Comment on above: Anemia, unspecified type (Primary Dx) Start: 08-07-2024 End: 08-07-2024 Telephone encounter Xochilt Gaston APRN.JUMBO OPERATOR Work Phone: [facility] [place] Comment on above: Results; EKG Start: 08-07-2024 End: 08-07-2024 ambulatory XOCHILTCARLOS GASTON Facility:[facility] Start: 08-07-2024 End: 08-07-2024 Office outpatient visit 25 minutes Xochilt Gaston APRN.JUMBO OPERATOR Work Phone: [facility] Comment on above: Medication managemen t (Primary Dx); Hypokalemia; Low hemoglobin; Anemia, unspecified type; Elevated hemoglobin A1c Start: 07-30-2024 End: 07-30-2024 Emergency department patient visit [facility] Facility:[facility] Start: 06-19-2024 End: 06-21-2024 ambulatory Clayton Granados APRN.JUMBO OPERATOR Work Phone: Psychiatry Comment on above: EKG Start: 05-21-2024 End: 05-21-2024 ambulatory [facility] Facility:[facility] Start: 05-18-2024 End: 05-18-2024 ambulatory [facility] Facility:[facility] Start: 05-18-2024 End: 05-18-2024 [facility] Clayton Granados APRN.JUMBO OPERATOR Work Phone: Psychiatry Comment on above: ELIJAH (generalized anx iety disorder) (Primary Dx); Panic attacks; Insomnia due to other mental disorder; Bipolar II disorder (HCC); Encounter for long-term (current) use of medications; History of marijuana use; Psychosocial stressors Start: 04-24-2024 End: 04-26-2024 ambulatory Clayton Granados APRN.JUMBO OPERATOR Work Phone: Psychiatry Comment on above: UA Start: 03-27-2024 End: 03-28-2024 ambulatory Clayton Granados APRN.JUMBO OPERATOR Work Phone: Psychiatry Comment on above: Lexapro and zyprexa Start: 03-21-2024 End: 03-21-2024 ambulatory Clayton Granados APRN.JUMBO OPERATOR Work Phone: Psychiatry Start: 03-21-2024 End: 03-21-2024 Patient encounter procedure Clayton Lila Granados SALES ENGINEER ACCOUNT MANAGER.JUMBO OPERATOR Work Phone: Psychiatry Comment on above: Appointment Start: 03-03-2024 End: 03-03-2024 ambulatory Clayton Granados SALES ENGINEER ACCOUNT MANAGER.JUMBO OPERATOR Work Phone: Psychiatry Comment on above: NO SHOW (Primary Dx) Start: 03-03-2024 End: 03-03-2024 Telemedicine consultation with patient Clayton Granados SALES ENGINEER ACCOUNT MANAGER.JUMBO OPERATOR Work Phone: Psychiatry Start: 02-21-2024 End: 02-21-2024 ambulatory Clayton Lila rGanados SALES ENGINEER ACCOUNT MANAGER.JUMBO OPERATOR Work Phone: Psychiatry Comment on above: Lexapro Start: 01-26-2024 ambulatory Clayton Lila Martins u SALES ENGINEER ACCOUNT MANAGER.JUMBO OPERATOR Work Phone: Psychiatry Comment on above: Appt Start: 01-19-2024 End: 01-19-2024 ambulatory Clayton Lila Granados SALES ENGINEER ACCOUNT MANAGER.JUMBO OPERATOR Work Phone: Psychiatry Comment on above: NO SHOW (Primary Dx) Start: 01-19-2024 End: 01-19-2024 Telemedicine consultation with patient Claytno Granados SALES ENGINEER ACCOUNT MANAGER.JUMBO OPERATOR Work Phone: Psychiatry Start: 12-30-2023 ambulatory Clayton Lila Martins u SALES ENGINEER ACCOUNT MANAGER.JUMBO OPERATOR Work Phone: Psychiatry Start: 12-30-2023 End: 12-30-2023 Patient encounter procedure Clayton Granados SALES ENGINEER ACCOUNT MANAGER.JUMBO OPERATOR Work Phone: Psychiatry Comment on above: Appointment APPOINTMENT CANCELLE D (Primary Dx) Start: 12-30-2023 End: 12-30-2023 Telemedicine consultation with patient Clayton Granados SALES ENGINEER ACCOUNT MANAGER.JUMBO OPERATOR Work Phone: Psychiatry Start: 12-12-2023 Refill Fredrick goodwin DO Work Phone: Family [facility] Comment on above: Refill Request Start: 12-10-2023 Get Medical Advice Fredrick Boland DO Work Phone: [facility] [place] Comment on above: Refill Start: 11-12-2023 ambulatory Clayton Lila roman SALES ENGINEER ACCOUNT MANAGER.JUMBO OPERATOR Work Phone: Psychiatry Comment on above: Zyprexa Start: 10-19-2023 ambulatory Fredrick goodwin DO Work Phone: Internal Medicine Main [place] Start: 09-27-2023 Refill Yesenia Juan Carlos SALES ENGINEER ACCOUNT MANAGER.JUMBO OPERATOR Work Phone: [facility] [place] Comment on above: Refill Request Start: 09-02-2023 End: 09-02-2023 Distance [facility] Clayton Granados SALES ENGINEER ACCOUNT MANAGER.JUMBO OPERATOR Work Phone: Psychiatry Comment on above: Bipolar II disorder (HCC) (Primary Dx); Encounter for long-term (current) use of medications; Panic disorder without agoraphobia; History of marijuana use; ELIJAH (generalized anxiety disorder) Start: 05-23-2023 ambulatory Clayton roman SALES ENGINEER ACCOUNT MANAGER.JUMBO OPERATOR Work Phone: Psychiatry Comment on above: Zyprexa Start: 05-16-2023 End: 05-16-2023 Distance [facility] Clayton Granados SALES ENGINEER ACCOUNT MANAGER.JUMBO OPERATOR Work Phone: Psychiatry Comment on above: Encounter for long-t erm (current) use of medications (Primary Dx); ELIJAH (generalized anxiety disorder); Bipolar II disorder (HCC); Panic disorder without agoraphobia Start: 04-18-2023 End: 04-18-2023 [facility] Clayton Granados SALES ENGINEER ACCOUNT MANAGER.JUMBO OPERATOR Work Phone: Psychiatry Comment on above: ELIJAH (generalized anx iety disorder) (Primary Dx); Panic attacks; Bipolar II disorder (HCC); Occasional use of marijuana Start: 03-15-2023 Refill Yesenia Rangel SALES ENGINEER ACCOUNT MANAGER.JUMBO OPERATOR Work Phone: [facility] [place] Comment on above: Refill Request Start: 03-14-2023 End: 03-14-2023 Distance [facility] Clayton Granados SALES ENGINEER ACCOUNT MANAGER.JUMBO OPERATOR Work Phone: Psychiatry Comment on above: Encounter for long-t erm (current) use of medications (Primary Dx); ELIJAH (generalized anxiety disorder); Panic attacks; Bipolar affective disorder, current episode mixed, current episode severity unspecified (HCC) Start: 02-25-2023 ambulatory Clayton roman SALES ENGINEER ACCOUNT MANAGER.JUMBO OPERATOR Work Phone: [facility] [place] Start: 02-25-2023 Patient encounter procedure Clayton Granados SALES ENGINEER ACCOUNT MANAGER.JUMBO OPERATOR Work Phone: Psychiatry Comment on above: Appointment Start: 01-05-2023 Refill Clayton roman SALES ENGINEER ACCOUNT MANAGER.JUMBO OPERATOR Work Phone: Psychiatry Comment on above: Refill Request Start: 01-03-2023 Refill Clayton roman SALES ENGINEER ACCOUNT MANAGER.JUMBO OPERATOR Work Phone: Psychiatry Comment on above: Refill Request Start: 12-31-2022 Refill Clayton roman SALES ENGINEER ACCOUNT MANAGER.JUMBO OPERATOR Work Phone: Psychiatry Comment on above: Refill Request Start: 10-28-2022 End: 10-28-2022 [facility] Clayton Granados SALES ENGINEER ACCOUNT MANAGER.JUMBO OPERATOR Work Phone: Psychiatry Comment on above: History of marijuana use (Primary Dx); Bipolar II disorder (HCC); Panic disorder without agoraphobia Start: 10-01-2022 Telephone encounter [facility] Surgery Comment on above: Tail End Rider - O ther (ECT) Start: 09-30-2022 End: 09-30-2022 [facility] Start: 09-30-2022 End: 09-30-2022 Patient encounter procedure [facility] SALES ENGINEER ACCOUNT MANAGER.JUMBO OPERATOR Work Phone: Psychiatry Comment on above: Bipolar II disorder (HCC) (Primary Dx) Start: 09-27-2022 End: 09-27-2022 [facility] Clayton Granados SALES ENGINEER ACCOUNT MANAGER.JUMBO OPERATOR Work Phone: Psychiatry Comment on above: Bipolar 2 disorder ( HCC) (Primary Dx); Panic disorder without agoraphobia; Marijuana use Start: 09-13-2022 End: 03-20-2023 ambulatory Clayton Granados SALES ENGINEER ACCOUNT MANAGER.JUMBO OPERATOR Work Phone: Psychiatry Comment on above: NO SHOW (Primary Dx) Start: 09-13-2022 End: 09-13-2022 Telemedicine consultation with patient Clayton Omerguru FINNEGAN.JUMBO OPERATOR Work Phone: [facility] [place] Start: 08-24-2022 Telephone encounter Ariella Cortes RN Psychiatry Comment on above: ECT Referral Start: 08-08-2022 Refill Fredrick goodwin DO Work Phone: [facility] [place] Comment on above: Refill Request Start: 07-19-2022 End: 07-19-2022 [facility] Clayton Granados SALES ENGINEER ACCOUNT MANAGER.JUMBO OPERATOR Work Phone: Psychiatry Comment on above: Panic disorder witho ut agoraphobia (Primary Dx); Bipolar 2 disorder (HCC); Marijuana use Start: 07-05-2022 Refill Clayton Nationr u SALES ENGINEER ACCOUNT MANAGER.JUMBO OPERATOR Work Phone: Psychiatry Comment on above: Refill Request Start: 07-01-2022 Refill Fredrick goodwin DO Work Phone: [facility] [place] Comment on above: Refill Request Start: 05-31-2022 End: 05-31-2022 [facility] Clayton Granados SALES ENGINEER ACCOUNT MANAGER.JUMBO OPERATOR Work Phone: Psychiatry Comment on above: Encounter for long-t erm (current) use of medications (Primary Dx); Panic disorder without agoraphobia; Bipolar 2 disorder (HCC) Start: 05-24-2022 Refill Clayton Martins u SALES ENGINEER ACCOUNT MANAGER.JUMBO OPERATOR Work Phone: Psychiatry Comment on above: Refill Request Start: 05-10-2022 Refill Clayton Nationr u SALES ENGINEER ACCOUNT MANAGER.JUMBO OPERATOR Work Phone: Psychiatry Comment on above: Refill Request Lexapro Start: 04-09-2022 End: 04-09-2022 ambulatory Clayton Granados SALES ENGINEER ACCOUNT MANAGER.JUMBO OPERATOR Work Phone: Psychiatry Comment on above: NO SHOW (Primary Dx) Start: 04-09-2022 End: 04-09-2022 Telemedicine consultation with patient Clayton Lila Granados APRN.JUMBO OPERATOR Work Phone: [facility] [place] Start: 03-29-2022 End: 03-29-2022 Patient encounter procedure Fredrick Boland DO Work Phone: [facility] Comment on above: Bilateral hand pain (Primary Dx); Elevated C-reactive protein (CRP); Bipolar affective disorder, current episode mixed, current episode severity unspecified (HCC) Start: 03-10-2022 Telephone encounter Fredrick Yosef walhs DO Work Phone: [facility] Comment on above: Patient Update Start: 03-04-2022 End: 03-04-2022 Distance [facility] Clayton Granados APRN.[facility] Work Phone: Psychiatry Comment on above: Panic disorder witho ut agoraphobia (Primary Dx); Bipolar 2 disorder (HCC) Start: 02-11-2022 Refill Clayton roman APRN.JUMBO OPERATOR Work Phone: Psychiatry Comment on above: Refill Request Start: 02-02-2022 End: 02-02-2022 Patient encounter procedure Fredrick Boland DO Work Phone: [facility] Comment on above: Bilateral hand pain (Primary Dx); Foot pain, bilateral; Fatigue, unspecified type; Myalgia; Multiple joint pain; Iron deficiency Start: 01-27-2022 End: 01-27-2022 Distance [facility] Clayton Granados APRN.JUMBO OPERATOR Work Phone: Psychiatry Comment on above: Bipolar 2 disorder ( HCC) (Primary Dx); Panic disorder without agoraphobia Start: 01-11-2022 ambulatory Clayton Nationr u SALES ENGINEER ACCOUNT MANAGER.JUMBO OPERATOR Work Phone: Psychiatry Comment on above: Lab work Start: 12-24-2021 End: 12-24-2021 Distance [facility] Clayton Granados APRN.JUMBO OPERATOR Work Phone: Psychiatry Comment on above: ELIJAH (generalized anx iety disorder) (Primary Dx); Bipolar 2 disorder (HCC); Panic disorder without agoraphobia Start: 12-22-2021 Refill Yesenia Zurawic k SALES ENGINEER ACCOUNT MANAGER.JUMBO OPERATOR Work Phone: [facility] [place] Comment on above: Refill Request Start: 12-15-2021 ambulatory Claytonsammie Martins u SALES ENGINEER ACCOUNT MANAGER.JUMBO OPERATOR Work Phone: Psychiatry Comment on above: Lexapro Start: 12-08-2021 Telephone encounter Clayton bro SALES ENGINEER ACCOUNT MANAGER.JUMBO OPERATOR Work Phone: Psychiatry Comment on above: Patient Question Start: 11-26-2021 Refill Clayton roman SALES ENGINEER ACCOUNT MANAGER.JUMBO OPERATOR Work Phone: Psychiatry Comment on above: Refill Request Start: 11-12-2021 End: 11-12-2021 [facility] Clayton Granados SALES ENGINEER ACCOUNT MANAGER.JUMBO OPERATOR Work Phone: Psychiatry Comment on above: ELIJAH (generalized anx iety disorder) (Primary Dx); Bipolar 2 disorder (HCC) Start: 11-03-2021 Refill Yesenia Zurpromisec k SALES ENGINEER ACCOUNT MANAGER.JUMBO OPERATOR Work Phone: [facility] [place] Comment on above: Refill Request Start: 10-27-2021 End: 10-27-2021 [facility] Clayton Granados SALES ENGINEER ACCOUNT MANAGER.JUMBO OPERATOR Work Phone: Psychiatry Comment on above: ELIJAH (generalized anx iety disorder) (Primary Dx); Bipolar 2 disorder (HCC) Start: 10-23-2021 ambulatory Xochilt holland SALES ENGINEER ACCOUNT MANAGER.JUMBO OPERATOR Work Phone: [facility] [place] Start: 10-23-2021 End: 10-23-2021 Patient encounter procedure Xochilt Gaston SALES ENGINEER ACCOUNT MANAGER.JUMBO OPERATOR Work Phone: Family Medicine [place] Comment on above: Appointment Bipolar affective di sorder, current episode mixed, current episode severity unspecified (HCC) (Primary Dx); Alcohol abuse; Depressive disorder; Panic attacks; ADD (attention deficit disorder) without hyperactivity; Legal intervention, bystander injured, initial encounter Start: 10-10-2021 ambulatory Room Emergency Radiolog y Comment on above: Radiology CT Start: 10-10-2021 Patient encounter procedure Room Emergency [facility] Start: 03-12-2021 End: 03-12-2021 Subsequent hospital visit by physician Xr [facility] [place] Work Phone: Radiology Comment on above: Acute pain of left k nee [M25.562] Start: 02-07-2018 Patient encounter procedure SANDRA NINO [facility] Start: 12-08-2017 End: 12-13-2017 Evaluation and management of inpatient Zakiya George Facility:[facility] Date Procedure Procedure Detail Performing Clinician Start: 01-10-2025 Adult depression scr eening assessment [employer] Work Phone: Start: 12-18-2024 Antibody screen FREDRICK BOLAND Comment on above: Order Comment: Speci men Type: BLOOD SPECIMENOrdering Facility: [facility] Address: [address] [place] [address] Performed By: #### T SCR ####CC MAIN BLOOD BANKCLIA [id number] [address] Start: 12-10-2024 Colonoscopy FREDRICK GAR RISON Start: 12-10-2024 Antibody screen FREDRICK BOLAND Comment on above: Order Comment: Speci men Type: BLOOD SPECIMENOrdering Facility: [facility] Address: [address] [place] [address] Performed By: #### T SCR ####CC MAIN BLOOD BANKCLIA [id number] [address] Start: 12-06-2024 Colonoscopy FREDRICK GAR RISON Start: 12-05-2024 Colonoscopy FREDRICK GAR RISON Start: 10-02-2024 Heparin assay Martín parisi DO Work Phone: Start: 10-02-2024 PATHOLOGIST INTERPRE TATION CBC/DIFF Martín Pendleton DO Work Phone: Start: 09-21-2024 Urinalysis MAGGIE HAMILTON Comment on above: Result Comment: URIN ALYSIS Performed By: #### [id number] #### [facility],[address] [place], [place] [id number] Start: 08-21-2024 H/O: surgery History of fasciotomy D danni Grigsby MD Work Phone: Start: 03-04-2022 Adult depression scr eening assessment Clayton Granados SALES ENGINEER ACCOUNT MANAGER.JUMBO OPERATOR Work Phone: Start: 01-27-2022 Adult depression scr eening assessment Clayton Granados SALES ENGINEER ACCOUNT MANAGER.JUMBO OPERATOR Work Phone: Start: 12-23-2021 Adult depression scr eening assessment Clayton Granados SALES ENGINEER ACCOUNT MANAGER.JUMBO OPERATOR Work Phone: Start: 11-12-2021 Adult depression scr eening assessment Clayton Granados SALES ENGINEER ACCOUNT MANAGER.JUMBO OPERATOR Work Phone: Start: 10-26-2021 Adult depression scr eening assessment Xochilt Lenzutzman SALES ENGINEER ACCOUNT MANAGER.JUMBO OPERATOR Work Phone: Start: 08-27-2021 Adult depression scr eening assessment Room Emergency Start: 03-12-2021 Radiologic exam knee complete 4/more views Herbert Izquierdo MD Work Phone: H/O: surgery S/P exploratory laparotomy Intestinal Trans Coord Main Work Phone: H/O: surgery S/P exploratory laparotomy Kirit Devine MD Work Phone: Plan of Treatment Date Care Activity Detail Author Start: 05-21-2029 Urine microalbumin profile [facility] Start: 03-01-2026 Annual PCP Team Chronic Disease Visit Annual PCP Team Chronic Disease Visit [facility] Start: 01-28-2026 Annual PCP Team Chronic Disease Visit Annual PCP Team Chronic Disease Visit [facility] Start: 01-10-2026 Annual PCP Team Chronic Disease Visit Annual PCP Team Chronic Disease Visit [facility] Start: 01-10-2026 Depression Screening Depression Screening [facility] Start: 11-29-2025 Hepatitis B screening Urine Albumin:Creatinine Ratio [facility] Start: 09-08-2025 PAP TESTING PAP TESTING [facility] Start: 09-04-2025 Hemoglobin A1c measurement HbA1C [facility] Start: 09-02-2025 End: 09-02-2025 Patient encounter procedure 09/02/2025 12:30 PM EDT OT/PT/Speech Visit [facility] [id number] [id number] Vicente Griffin, PT [address] [place] [address] Disability assessment [facility] Comment on above: Disability assessment Start: 08-27-2025 Diabetic foot examination Diabetic Foot Exam [facility] Start: 08-20-2025 Hepatitis B surface antibody level LDL Cholesterol [facility] Start: 08-16-2025 Annual PCP Team Chronic Disease Visit Annual PCP Team Chronic Disease Visit [facility] Start: 08-07-2025 Hepatitis B Vaccine (1 of 3 - 19+ 3-dose series) Hepatitis B Vaccine (1 of 3 - 19+ 3-dose series) [facility] Comment on above: Postponed from 09/08/2002 (Declined at t his time) Start: 08-07-2025 HIV screening HIV Screening [facility] Comment on above: Postponed from 09/08/2001 (Declined at t his time) Start: 08-07-2025 Pneumococcal vaccination Pneumococcal Vaccine (1 of 2 - PCV) [facility] Comment on above: Postponed from 09/08/2002 (Declined at t his time) Start: 08-07-2025 Screening for malignant neoplasm of breast Mammogram Screening [facility] Comment on above: Postponed from 2023 (Declined at t his time) Start: 04-30-2025 End: 04-30-2025 Follow-up encounter 04/30/2025 2:30 PM [facility] Psychiatry [address] [place] [address] Clayton Granados, SALES ENGINEER ACCOUNT MANAGER.JUMBO OPERATOR [address] [place] [address] 2 month follow up/med check Psychiatry Comment on above: 2 month follow up/med check Start: 03-26-2025 End: 03-26-2025 Patient encounter procedure 03/26/2025 2:30 PM EDT Office Visit Vascular Surg Dept [address] [id number] Aleja Goncalves MD [address] [place] [address] Arterial occlusion Vascular Surg Dept Comment on above: Arterial occlusion Start: 03-26-2025 End: 03-26-2025 Patient encounter procedure Vascular Surgery Comment on above: Arterial occlusion Start: 03-06-2025 End: 06-05-2025 Hemoglobin A1c in Blood HEMOGLOBIN A1C Lab Routine Short bowel syndrome, 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 Hypokalemia Malnutrition of moderate degree (HCC) Expected: 03/06/2025 (Approximate), Expires: 06/05/2025 [facility] Work Phone: Comment on above: Expected: 03/06/2025 (Approximate), Expi res: 06/05/2025 Start: 03-06-2025 End: 06-05-2025 Potassium [Moles/volume] in Serum or Plasma POTASSIUM Lab Routine Hypokalemia Expected: 03/06/2025, Expires: 06/05/2025 [facility] Comment on above: Expected: 03/06/2025, Expires: Start: 03-04-2025 End: 03-04-2025 ambulatory 03/04/2025 2:00 PM EDT [facility] Psychiatry [address] [place] [address] Clayton Granados, SALES ENGINEER ACCOUNT MANAGER.JUMBO OPERATOR [address] [place] [id number] Psychiatry Start: 02-28-2025 End: 02-28-2025 Patient encounter procedure 02/28/2025 1:00 PM EDT Office Visit Family [facility] [address] [place], [place] [id number] Ed Saxena, SALES ENGINEER ACCOUNT MANAGER.JUMBO OPERATOR [address] [place], [place] [id number] 1 month f/up [facility] [place] Comment on above: 1 month f/up Start: 02-27-2025 End: 02-27-2025 Patient encounter procedure 02/27/2025 11:15 AM EDT Office Visit Vascular Medicine [address] [place] [address] Akua Grigsby MD [address], [place] [id number] SMA thrombosis Vascular Medicine Comment on above: SMA thrombosis Start: 02-26-2025 End: 02-26-2025 ambulatory 02/26/2025 3:30 PM EDT [facility] Psychiatry [address] [place] [address] Clayton Granados, SALES ENGINEER ACCOUNT MANAGER.JUMBO OPERATOR [address] [place] [address] Psychiatry Start: 02-15-2025 End: 02-15-2025 Follow-up encounter 02/15/2025 11:30 AM EDT [facility] Psychiatry [address] [place] [address] Clayton Granados, SALES ENGINEER ACCOUNT MANAGER.JUMBO OPERATOR [address] [place] [address] Follow up appointment Psychiatry Comment on above: Follow up appointment Start: 02-04-2025 Hemoglobin A1c measurement HbA1C [facility] Start: 01-28-2025 End: 01-28-2025 Patient encounter procedure 01/28/2025 2:20 PM EDT Office Visit [facility] [address] [place] [address] Ed Saxena, SALES ENGINEER ACCOUNT MANAGER.JUMBO OPERATOR [address] [place], [place] [id number] Blood thinner [facility] Comment on above: Blood thinner Start: 01-28-2025 End: 04-29-2025 CBC panel - Blood by Automated count [facility] Comment on above: Expected: 01/28/2025, Expires: Start: 01-28-2025 End: 04-29-2025 Comprehensive metabolic 2000 panel - Serum or Plasma [facility] Work Phone: Comment on above: Expected: 01/28/2025, Expires: Start: 01-28-2025 End: 04-29-2025 PT panel - Platelet poor plasma by Coagulation assay PROTHROMBIN TIME Lab Routine 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) Expected: 01/28/2025, Expires: 04/29/2025 [facility] Work Phone: Comment on above: Expected: 01/28/2025, Expires: Start: 01-22-2025 End: 01-22-2025 Patient encounter procedure [facility] Comment on above: 1 week f/up Start: 01-14-2025 End: 04-15-2025 Basic metabolic 2000 panel - Serum or Plasma BASIC METABOLIC PANEL Lab Routine Hypokalemia Expected: 01/14/2025, Expires: 04/15/2025 [facility] Comment on above: Expected: 01/14/2025, Expires: Start: 01-14-2025 End: 04-15-2025 PT panel - Platelet poor plasma by Coagulation assay PROTHROMBIN TIME Lab Routine Blood thinned due to long-term anticoagulant use Expected: 01/14/2025, Expires: 04/15/2025 [facility] Work Phone: Comment on above: Expected: 01/14/2025, Expires: Start: 01-11-2025 End: 01-11-2025 Follow-up encounter 01/11/2025 3:00 PM EDT [facility] Psychiatry [address] [place] [address] Clayton Granados, SALES ENGINEER ACCOUNT MANAGER.JUMBO OPERATOR [address] [place] [phone] Follow up appointment Psychiatry Comment on above: Follow up appointment Start: 01-10-2025 End: 01-10-2025 Patient encounter procedure 01/10/2025 2:00 PM EDT Office Visit [facility] [address] [place] [address] Ed Saxena, SALES ENGINEER ACCOUNT MANAGER.JUMBO OPERATOR [address] [place], [place] [phone] check up/pain (MyChart Request) Family Medicine [place] Comment on above: check up/pain (MyChart Request) Start: 01-08-2025 End: 01-08-2025 Patient encounter procedure Gastroenterology Comment on above: hpn page [id number] Start: 01-07-2025 End: 01-07-2025 Follow-up encounter 01/07/2025 2:00 PM EDT [facility] Psychiatry [address] [place] [phone] Clayton Granados, SALES ENGINEER ACCOUNT MANAGER.JUMBO OPERATOR [address] [place] [address] Follow up appointment Psychiatry Comment on above: Follow up appointment Start: 01-03-2025 End: 01-03-2025 Patient encounter procedure 01/03/2025 10:40 AM EDT Office Visit [facility] [address] [place], [place] [phone] Ed Saxena, SALES ENGINEER ACCOUNT MANAGER.JUMBO OPERATOR [address] [place], [place] [phone] check up/pain (MyChart Request) Family Medicine [place] Comment on above: check up/pain (MyChart Request) Start: 01-01-2025 End: 01-01-2025 Patient encounter procedure 01/01/2025 9:00 AM EDT Office Visit Podiatry [address] [address] Suzanne Duval PA-C [address] [place] [address] DOS 12/03/2024 Podiatry Comment on above: DOS [...] 11/15/2024 8:40 AM EDT Appointment Radiology [address] [place] [address] 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] Radiology Comment on above: Short bowel syndrome without colon in co ntinuity [K90.822] Start: 11-13-2024 End: 11-13-2024 Patient encounter procedure 11/13/2024 1:40 PM EDT Office Visit Family [facility] [place] [address] [place], [place] [address] Fredrick Boland DO [address] [place] [address] Follow up [facility] [place] Comment on above: Follow up Start: 11-08-2024 End: 11-08-2024 Patient encounter procedure 11/08/2024 9:40 AM EDT Appointment Radiology [address] [place] [address] 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] Radiology Comment on above: Short bowel syndrome without colon in co ntinuity [K90.822] Start: 11-05-2024 End: 11-05-2024 Patient encounter procedure 11/05/2024 7:30 AM EDT Appointment Radiology [address] [address] 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] Radiology Comment on above: 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] Start: 10-31-2024 End: 10-31-2024 Follow-up encounter 10/31/2024 10:30 AM EDT Visit (SP) Office Hematology/Oncology [address] [place] [address] Martín Pendleton, DO [address] [place] [address] FOLLOW UP-DISCUSS LABS* Hematology/Oncology Comment on above: FOLLOW UP-DISCUSS LABS* Start: 10-29-2024 End: 10-29-2024 Nursing evaluation of patient and report 10/29/2024 1:00 PM EDT Nurse Visit [facility] [address] [place] [address] Ostomy Issues [facility] Comment on above: Ostomy Issues Start: 10-25-2024 End: 10-25-2024 Follow-up encounter 10/25/2024 9:30 AM EDT Visit (SP) Office Hematology/Oncology [address] [place] [address] Martín Pendleton, DO [address] [place] [address] FOLLOW UP-DISCUSS LABS* Hematology/Oncology Comment on above: FOLLOW UP-DISCUSS LABS* Start: 10-22-2024 End: 01-21-2025 25-hydroxyvitamin D3 [Mass/volume] in Serum or Plasma VITAMIN D 25 HYDROXY Lab STAT 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 Expected: 10/22/2024 (Approximate), Expires: 01/21/2025 [facility] Comment on above: Expected: 10/22/2024 (Approximate), Expi res: 01/21/2025 Start: 10-22-2024 End: 01-21-2025 Alpha tocopherol [Mass/volume] in Serum or Plasma VITAMIN E/TOCOPHEROL Lab STAT 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 Expected: 10/22/2024 (Approximate), Expires: 01/21/2025 [facility] Comment on above: Expected: 10/22/2024 (Approximate), Expi res: 01/21/2025 Start: 10-22-2024 End: 01-21-2025 AMINO ACIDS, PLASMA W/ CONSULTATION AMINO ACIDS, PLASMA W/ CONSULTATION Lab STAT 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 Expected: 10/22/2024 (Approximate), Expires: 01/21/2025 [facility] Comment on above: Expected: 10/22/2024 (Approximate), Expi res: 01/21/2025 Start: 10-22-2024 End: 01-21-2025 APC RESISTANCE APC RESISTANCE Lab STAT 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 Expected: 10/22/2024 (Approximate), Expires: 01/21/2025 [facility] Comment on above: Expected: 10/22/2024 (Approximate), Expi res: 01/21/2025 Start: 10-22-2024 End: 01-21-2025 aPTT in Platelet poor plasma by Coagulation assay ACTIVATED PARTIAL THROMBOPLASTIN TIME Lab STAT 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 Expected: 10/22/2024 (Approximate), Expires: 01/21/2025 [facility] Comment on above: Expected: 10/22/2024 (Approximate), Expi res: 01/21/2025 Start: 10-22-2024 End: 01-21-2025 Ascorbate [Mass/volume] in Serum or Plasma VITAMIN C Lab STAT 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 Expected: 10/22/2024 (Approximate), Expires: 01/21/2025 [facility] Comment on above: Expected: 10/22/2024 (Approximate), Expi res: 01/21/2025 Start: 10-22-2024 End: 01-21-2025 CBC W Auto Differential panel - Blood COMPLETE BLOOD COUNT AND DIFFERENTIAL Lab STAT 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 Expected: 10/22/2024 (Approximate), Expires: 01/21/2025 [facility] Comment on above: Expected: 10/22/2024 (Approximate), Expi res: 01/21/2025 Start: 10-22-2024 End: 01-21-2025 Cobalamin (Vitamin B12) [Mass/volume] in Serum or Plasma VITAMIN B12 Lab STAT 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 Expected: 10/22/2024 (Approximate), Expires: 01/21/2025 [facility] Comment on above: Expected: 10/22/2024 (Approximate), Expi res: 01/21/2025 Start: 10-22-2024 End: 01-21-2025 Comprehensive metabolic 2000 panel - Serum or Plasma COMPREHENSIVE METABOLIC PANEL Lab STAT 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 Expected: 10/22/2024 (Approximate), Expires: 01/21/2025 [facility] Comment on above: Expected: 10/22/2024 (Approximate), Expi res: 01/21/2025 Start: 10-22-2024 End: 01-21-2025 Ferritin [Mass/volume] in Serum or Plasma FERRITIN Lab STAT 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 Expected: 10/22/2024 (Approximate), Expires: 01/21/2025 [facility] Comment on above: Expected: 10/22/2024 (Approximate), Expi res: 01/21/2025 Start: 10-22-2024 End: 01-21-2025 Folate [Mass/volume] in Serum or Plasma FOLATE, SERUM Lab STAT 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 Expected: 10/22/2024 (Approximate), Expires: 01/21/2025 [facility] Comment on above: Expected: 10/22/2024 (Approximate), Expi res: 01/21/2025 Start: 10-22-2024 End: 01-21-2025 HYPERCOAG DIAG PNL HYPERCOAG DIAG PNL Lab STAT 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 Expected: 10/22/2024 (Approximate), Expires: 01/21/2025 [facility] Comment on above: Expected: 10/22/2024 (Approximate), Expi res: 01/21/2025 Start: 10-22-2024 End: 01-21-2025 Iron and Iron binding capacity panel - Serum or Plasma IRON AND TIBC Lab STAT 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 Expected: 10/22/2024 (Approximate), Expires: 01/21/2025 [facility] Comment on above: Expected: 10/22/2024 (Approximate), Expi res: 01/21/2025 Start: 10-22-2024 End: 01-21-2025 Magnesium [Mass/volume] in Serum or Plasma MAGNESIUM Lab STAT 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 Expected: 10/22/2024 (Approximate), Expires: 01/21/2025 [facility] Comment on above: Expected: 10/22/2024 (Approximate), Expi res: 01/21/2025 Start: 10-22-2024 End: 01-21-2025 Methylmalonate [Moles/volume] in Serum or Plasma METHYLMALONIC ACID Lab STAT 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 Expected: 10/22/2024 (Approximate), Expires: 01/21/2025 [facility] Comment on above: Expected: 10/22/2024 (Approximate), Expi res: 01/21/2025 Start: 10-22-2024 End: 01-21-2025 Niacin [Mass/volume] in Serum or Plasma VITAMIN B3/NIACIN Lab STAT 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 Expected: 10/22/2024 (Approximate), Expires: 01/21/2025 [facility] Comment on above: Expected: 10/22/2024 (Approximate), Expi res: 01/21/2025 Start: 10-22-2024 End: 01-21-2025 Parathyrin.intact [Mass/volume] in Serum or Plasma PTH INTACT Lab STAT 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 Expected: 10/22/2024 (Approximate), Expires: 01/21/2025 [facility] Comment on above: Expected: 10/22/2024 (Approximate), Expi res: 01/21/2025 Start: 10-22-2024 End: 01-21-2025 Phosphate [Mass/volume] in Serum or Plasma PHOSPHORUS INORGANIC Lab STAT 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 Expected: 10/22/2024 (Approximate), Expires: 01/21/2025 [facility] Comment on above: Expected: 10/22/2024 (Approximate), Expi res: 01/21/2025 Start: 10-22-2024 End: 01-21-2025 Prealbumin [Mass/volume] in Serum or Plasma PREALBUMIN Lab STAT 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 Expected: 10/22/2024 (Approximate), Expires: 01/21/2025 [facility] Comment on above: Expected: 10/22/2024 (Approximate), Expi res: 01/21/2025 Start: 10-22-2024 End: 01-21-2025 PT panel - Platelet poor plasma by Coagulation assay PROTHROMBIN TIME Lab STAT 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 Expected: 10/22/2024 (Approximate), Expires: 01/21/2025 [facility] Comment on above: Expected: 10/22/2024 (Approximate), Expi res: 01/21/2025 Start: 10-22-2024 End: 01-21-2025 Pyridoxine [Mass/volume] in Serum or Plasma VITAMIN B6/PYRIDOXIN Lab STAT 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 Expected: 10/22/2024 (Approximate), Expires: 01/21/2025 [facility] Comment on above: Expected: 10/22/2024 (Approximate), Expi res: 01/21/2025 Start: 10-22-2024 End: 01-21-2025 Retinol [Mass/volume] in Serum or Plasma VITAMIN A/RETINOL Lab STAT 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 Expected: 10/22/2024 (Approximate), Expires: 01/21/2025 [facility] Comment on above: Expected: 10/22/2024 (Approximate), Expi res: 01/21/2025 Start: 10-22-2024 End: 01-21-2025 Thyrotropin [Units/volume] in Serum or Plasma THYROID STIMULATING HORMONE Lab STAT 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 Expected: 10/22/2024 (Approximate), Expires: 01/21/2025 [facility] Comment on above: Expected: 10/22/2024 (Approximate), Expi res: 01/21/2025 Start: 10-22-2024 End: 01-21-2025 TOXICOLOGY PANEL BLD TOXICOLOGY PANEL BLD Lab STAT 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 Expected: 10/22/2024 (Approximate), Expires: 01/21/2025 [facility] Comment on above: Expected: 10/22/2024 (Approximate), Expi res: 01/21/2025 Start: 10-22-2024 End: 01-21-2025 TRACE ELEMENTS/TPN TRACE ELEMENTS/TPN Lab STAT 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 Expected: 10/22/2024 (Approximate), Expires: 01/21/2025 [facility] Comment on above: Expected: 10/22/2024 (Approximate), Expi res: 01/21/2025 Start: 10-22-2024 End: 01-21-2025 TYPE + SCREEN TYPE + SCREEN Blood Bank STAT 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 Expected: 10/22/2024 (Approximate), Expires: 01/21/2025 [facility] Work Phone: Comment on above: Expected: 10/22/2024 (Approximate), Expi res: 01/21/2025 Start: 10-22-2024 End: 10-22-2024 Patient encounter procedure 10/22/2024 11:00 AM EDT Office Visit Vascular Medicine [address] [place] [address] Akua Grigsby MD [address] [place] [address] 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 Comment on above: DX: SMA and leg arterial thrombosis Start: 10-17-2024 End: 10-17-2024 Patient encounter procedure General Surgery Comment on above: post op ACS Start: 10-11-2024 End: 01-10-2025 TOXICOLOGY SCREEN, ROUTINE URINE TOXICOLOGY SCREEN, ROUTINE URINE Lab Routine 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 Expected: 10/11/2024, Expires: 01/10/2025 [facility] Comment on above: Expected: 10/11/2024, Expires: Start: 10-10-2024 End: 10-10-2024 Patient encounter procedure 10/10/2024 12:15 PM EDT Office Visit General Surgery [address] [address] Peter Smith MD [address] [place] [address] post op ACS General Surgery Comment on above: post op ACS Start: 10-06-2024 End: 01-05-2025 CBC W Auto Differential panel - Blood COMPLETE BLOOD COUNT AND DIFFERENTIAL Lab Routine Anemia, unspecified type Expected: 10/06/2024, Expires: 01/05/2025 [facility] Comment on above: Expected: 10/06/2024, Expires: Start: 10-06-2024 End: 01-05-2025 Iron and Iron binding capacity panel - Serum or Plasma IRON AND TIBC Lab Routine Anemia, unspecified type Expected: 10/06/2024, Expires: 01/05/2025 [facility] Work Phone: Comment on above: Expected: 10/06/2024, Expires: Start: 10-02-2024 End: 10-02-2024 ambulatory 10/02/2024 3:00 PM EDT Visit (SP) Office Hematology/Oncology [address] [facility] [place], [place] [id number] Martín Pendleton DO [address] [facility] [place] [address] CIVIL DESIGNER/DX: Hematology/Oncology Comment on above: CIVIL DESIGNER/DX: Start: 10-02-2024 End: 01-01-2025 B 2 GPI IGG & IGM [facility] Comment on above: Expected: 10/02/2024, Expires: Start: 10-02-2024 End: 01-01-2025 Cardiolipin IgG and IgM panel - Serum [facility] Comment on above: Expected: 10/02/2024, Expires: Start: 10-02-2024 End: 01-01-2025 Ferritin [Mass/volume] in Serum or Plasma [facility] Comment on above: Expected: 10/02/2024, Expires: Start: 10-02-2024 End: 01-01-2025 Iron and Iron binding capacity panel - Serum or Plasma [facility] Comment on above: Expected: 10/02/2024, Expires: Start: 10-02-2024 End: 01-01-2025 MONOCLONAL PROTEIN, SERUM (BLOOD) [facility] Work Phone: Comment on above: Expected: 10/02/2024, Expires: Start: 10-02-2024 End: 01-01-2025 PROTEIN C FUNCT [facility] Comment on above: Expected: 10/02/2024, Expires: Start: 10-02-2024 End: 01-01-2025 PROTEIN ELECTROPHORESIS SERUM W/INTERP [facility] Comment on above: Expected: 10/02/2024, Expires: Start: 10-02-2024 End: 01-01-2025 PROTEIN S CLOTTABLE [facility] Comment on above: Expected: 10/02/2024 (Approximate), Expi res: 01/01/2025 Start: 10-02-2024 End: 01-01-2025 PROTEIN S IMMUNO [facility] Comment on above: Expected: 10/02/2024, Expires: Start: 10-02-2024 End: 01-01-2025 Transferrin receptor.soluble [Mass/volume] in Serum or Plasma [facility] Comment on above: Expected: 10/02/2024, Expires: Start: 10-01-2024 End: 10-01-2024 Patient encounter procedure 10/01/2024 11:00 AM EDT Office Visit Vascular Medicine [address] [place] [id number] Akua Grigsby MD [address] [place] [address] 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 Comment on above: DX: SMA and leg arterial thrombosis Start: 09-19-2024 End: 09-19-2024 Patient encounter procedure Vascular Surgery Comment on above: Hospital FU DX:SMA occlusion Start: 09-10-2024 End: 09-10-2024 Follow-up encounter 09/10/2024 2:00 PM EDT [facility] Psychiatry [address] [place] [address] Clayton Granados, SALES ENGINEER ACCOUNT MANAGER.JUMBO OPERATOR [address] [place] [address] Follow up Psychiatry Comment on above: Follow up Start: 08-20-2024 End: 08-20-2024 Laps abd prtm&omentum dx w/wo spec br/wa spx LAPAROSCOPY DIAGNOSTIC Aortic mural thrombus (HCC) 08/20/2024 12:[address] [facility] & VAS Start: 08-20-2024 End: 08-20-2024 Slctv cathj 2nd order abdl pel/lxtr art brnch ANGIOGRAM MESENTERIC Aortic mural thrombus (HCC) 08/20/2024 12:[address] & VAS Start: 06-25-2024 End: 06-25-2024 Patient encounter procedure 06/25/2024 11:00 AM EST Office Visit [facility] [address] [place], [place] [address] Yesenia Ranegl, SALES ENGINEER ACCOUNT MANAGER.JUMBO OPERATOR [address] [place], [place] [address] physical Family [facility] Comment on above: physical Start: 05-18-2024 End: 05-18-2024 ambulatory 05/18/2024 2:00 PM EST [facility] Psychiatry [address] [place] [address] Clayton Granados, SALES ENGINEER ACCOUNT MANAGER.JUMBO OPERATOR [address] [place] [address] med check Psychiatry Comment on above: med check Start: 05-18-2024 End: 08-17-2024 BENZO CONFIRM, URINE BENZO CONFIRM, URINE Lab Routine Encounter for long-term (current) use of medications Expected: 05/18/2024, Expires: 08/17/2024 [facility] Comment on above: Expected: 05/18/2024, Expires: Start: 05-18-2024 End: 08-17-2024 CBC W Auto Differential panel - Blood COMPLETE BLOOD COUNT AND DIFFERENTIAL Lab Routine Encounter for long-term (current) use of medications Expected: 05/18/2024, Expires: 08/17/2024 [facility] Comment on above: Expected: 05/18/2024, Expires: Start: 05-18-2024 End: 08-17-2024 Comprehensive metabolic 2000 panel - Serum or Plasma COMPREHENSIVE METABOLIC PANEL Lab Routine Encounter for long-term (current) use of medications Expected: 05/18/2024, Expires: 08/17/2024 [facility] Work Phone: Comment on above: Expected: 05/18/2024, Expires: Start: 05-18-2024 End: 08-17-2024 Hemoglobin A1c in Blood HEMOGLOBIN A1C Lab Routine Encounter for long-term (current) use of medications Expected: 05/18/2024, Expires: 08/17/2024 [facility] Comment on above: Expected: 05/18/2024, Expires: Start: 05-18-2024 End: 08-17-2024 Lipid 1996 panel - Serum or Plasma LIPID PANEL BASIC Lab Routine Encounter for long-term (current) use of medications Expected: 05/18/2024, Expires: 08/17/2024 [facility] Comment on above: Expected: 05/18/2024, Expires: Start: 05-18-2024 End: 08-17-2024 PHOSPHATIDYLETHANOL (PETH) PHOSPHATIDYLETHANOL (PETH) Lab Routine Encounter for long-term (current) use of medications Expected: 05/18/2024, Expires: 08/17/2024 [facility] Comment on above: Expected: 05/18/2024, Expires: Start: 05-18-2024 End: 08-17-2024 Thyrotropin [Units/volume] in Serum or Plasma THYROID STIMULATING HORMONE Lab Routine Encounter for long-term (current) use of medications Expected: 05/18/2024, Expires: 08/17/2024 [facility] Comment on above: Expected: 05/18/2024, Expires: Start: 05-18-2024 End: 08-17-2024 TOXICOLOGY SCREEN, ROUTINE URINE TOXICOLOGY SCREEN, ROUTINE URINE Lab Routine Encounter for long-term (current) use of medications Expected: 05/18/2024, Expires: 08/17/2024 [facility] Comment on above: Expected: 05/18/2024, Expires: Start: 03-03-2024 End: 03-03-2024 Follow-up encounter 03/03/2024 1:00 PM EDT [facility] Psychiatry [address] [place] [phone] Clayton Granados, SALES ENGINEER ACCOUNT MANAGER.JUMBO OPERATOR [address] [place] [id number] Follow up Psychiatry Comment on above: Follow up Start: 02-26-2024 Covid-19 Vaccine ( season) Covid-19 Vaccine ( season) [facility] Start: 02-26-2024 Covid-19 Vaccine () Covid-19 Vaccine () [facility] Start: 02-26-2024 Influenza vaccination [facility] Start: 01-19-2024 End: 01-19-2024 Follow-up encounter 01/19/2024 9:00 AM EDT [facility] Psych[facility] [address] [place] [address] Clayton Granados, SALES ENGINEER ACCOUNT MANAGER.JUMBO OPERATOR [address] [place] [phone] Follow up Psychiatry Comment on above: Follow up Start: 12-30-2023 End: 12-30-2023 Follow-up encounter 12/30/2023 2:00 PM EDT [facility] Psych[facility] [address] [place] [phone] Clayton Granados, SALES ENGINEER ACCOUNT MANAGER.JUMBO OPERATOR [address] [place] [phone] FOLLOW UP Psychiatry Comment on above: FOLLOW UP Start: 10-28-2023 End: 10-28-2023 Patient encounter procedure 10/28/2023 8:20 AM EDT Office Visit [facility] [address] [facility] [place], [place] [id number] Fredrick Boland DO [address] [place] [address] missing periods [facility] Comment on above: missing periods Start: 2023 Screening for malignant neoplasm of breast Mammogram Screening [facility] Start: 09-08-2023 End: 12-08-2023 TOX SCREEN ROUT UR TOX SCREEN ROUT UR Lab Routine Encounter for long-term (current) use of medications History of marijuana use Expected: 09/08/2023, Expires: 12/08/2023 [facility] Work Phone: Comment on above: Expected: 09/08/2023, Expires: Start: 09-02-2023 End: 12-02-2023 Comprehensive metabolic 2000 panel - Serum or Plasma COMP METABOLIC PANEL Lab Routine Encounter for long-term (current) use of medications Expected: 09/02/2023, Expires: 12/02/2023 [facility] Work Phone: Comment on above: Expected: 09/02/2023, Expires: Start: 09-02-2023 End: 12-02-2023 Hemoglobin A1c in Blood HGB A1C Lab Routine Encounter for long-term (current) use of medications Expected: 09/02/2023, Expires: 12/02/2023 [facility] Work Phone: Comment on above: Expected: 09/02/2023, Expires: Start: 09-02-2023 End: 12-02-2023 Lipid 1996 panel - Serum or Plasma LIPID PANEL BASIC Lab Routine Encounter for long-term (current) use of medications Expected: 09/02/2023, Expires: 12/02/2023 [facility] Work Phone: Comment on above: Expected: 09/02/2023, Expires: Start: 07-12-2023 HPV TESTING HPV TESTING [facility] Start: 07-12-2023 PAP TESTING PAP TESTING [facility] Start: 07-12-2023 Screening for malignant neoplasm of cervix [facility] Start: 06-27-2023 Depression Assessment Depression Assessment [facility] Start: 05-16-2023 End: 08-15-2023 Comprehensive metabolic 2000 panel - Serum or Plasma COMP METABOLIC PANEL Lab Routine Encounter for long-term (current) use of medications Expected: 05/16/2023, Expires: 08/15/2023 [facility] Work Phone: Comment on above: Expected: 05/16/2023, Expires: 4 Start: 05-16-2023 End: 08-15-2023 Hemoglobin A1c in Blood HGB A1C Lab Routine Encounter for long-term (current) use of medications Expected: 05/16/2023, Expires: 08/15/2023 [facility] Work Phone: Comment on above: Expected: 05/16/2023, Expires: 4 Start: 05-16-2023 End: 08-15-2023 Lipid 1996 panel - Serum or Plasma LIPID PANEL BASIC Lab Routine Encounter for long-term (current) use of medications Expected: 05/16/2023, Expires: 08/15/2023 [facility] Work Phone: Comment on above: Expected: 05/16/2023, Expires: 4 Start: 03-04-2023 Adult depression screening assessment DEPRESSION SCREENING [facility] Start: 02-25-2023 Covid-19 Vaccine ( season) Covid-19 Vaccine () [facility] Start: 02-25-2023 Influenza vaccination [facility] Start: 01-27-2023 Adult depression screening assessment DEPRESSION SCREENING [facility] Start: 12-24-2022 Influenza vaccination INFLUENZA (#1) [facility] Comment on above: Postponed from 02/25/2022 (Declined at t his time) Start: 12-23-2022 Adult depression screening assessment DEPRESSION SCREENING [facility] Start: 11-12-2022 Adult depression screening assessment DEPRESSION SCREENING [facility] Start: 10-28-2022 End: 12-28-2022 TOX SCREEN ROUT UR TOX SCREEN ROUT UR Lab Routine History of marijuana use Expected: 10/28/2022, Expires: 12/28/2022 [facility] Work Phone: Comment on above: Expected: 10/28/2022, Expires: 3 Start: 10-26-2022 Adult depression screening assessment DEPRESSION SCREENING [facility] Start: 09-30-2022 End: 11-30-2022 Basic metabolic 2000 panel - Serum or Plasma [facility] Work Phone: Comment on above: Expected: 09/30/2022, Expires: 3 Start: 09-30-2022 End: 11-30-2022 Choriogonadotropin ( test) [Presence] in Urine [facility] Work Phone: Comment on above: Expected: 09/30/2022, Expires: 3 Start: 09-30-2022 End: 11-30-2022 ETHYL GLUCURONIDE UR SCR [facility] Work Phone: Comment on above: Expected: 09/30/2022, Expires: 3 Start: 09-30-2022 End: 11-30-2022 TOX SCREEN ROUT UR [facility] Work Phone: Comment on above: Expected: 09/30/2022, Expires: 3 Start: 08-27-2022 Adult depression screening assessment DEPRESSION SCREENING [facility] Start: 07-20-2022 COVID-19 VACCINE (#1) COVID-19 VACCINE (#1) [facility] Comment on above: Postponed from 09/08/1988 (Declined at t his time) Postponed from 03/11 (Declined at this time) Start: 07-20-2022 COVID-19 VACCINE (1) COVID-19 VACCINE (1) [facility] Comment on above: Postponed from 09/08/1988 (Declined at t his time) Start: 07-05-2022 End: 09-04-2022 TOX SCREEN ROUT UR TOX SCREEN ROUT UR Lab Routine Marijuana use Expected: 07/05/2022, Expires: 09/04/2022 [facility] Work Phone: Comment on above: Expected: 07/05/2022, Expires: 3 Start: 06-27-2022 DEPRESSION ASSESSMENT DEPRESSION ASSESSMENT [facility] Start: 02-25-2022 Influenza vaccination [facility] Start: 02-02-2022 End: 04-04-2022 25-hydroxyvitamin D3 [Mass/volume] in Serum or Plasma VITAMIN D 25 HYDROXY Lab Routine Fatigue, unspecified type Myalgia Expected: 02/02/2022, Expires: 04/04/2022 [facility] Work Phone: Comment on above: Expected: 02/02/2022, Expires: 2 Start: 02-02-2022 End: 04-04-2022 C reactive protein [Mass/volume] in Serum or Plasma C-REACTIVE PROTEIN (CRP) Lab Routine Bilateral hand pain Foot pain, bilateral Expected: 02/02/2022, Expires: 04/04/2022 [facility] Work Phone: Comment on above: Expected: 02/02/2022, Expires: 2 Start: 02-02-2022 End: 04-04-2022 CBC W Auto Differential panel - Blood CBC + DIFF Lab Routine Fatigue, unspecified type Myalgia Expected: 02/02/2022, Expires: 04/04/2022 [facility] Work Phone: Comment on above: Expected: 02/02/2022, Expires: 2 Start: 02-02-2022 End: 04-04-2022 Cobalamin (Vitamin B12) [Mass/volume] in Serum or Plasma VITAMIN B12 BLOOD Lab Routine Fatigue, unspecified type Myalgia Expected: 02/02/2022, Expires: 04/04/2022 [facility] Work Phone: Comment on above: Expected: 02/02/2022, Expires: 2 Start: 02-02-2022 End: 04-04-2022 Comprehensive metabolic 2000 panel - Serum or Plasma COMP METABOLIC PANEL Lab Routine Fatigue, unspecified type Myalgia Expected: 02/02/2022, Expires: 04/04/2022 [facility] Work Phone: Comment on above: Expected: 02/02/2022, Expires: 2 Start: 02-02-2022 End: 04-04-2022 Cyclic citrullinated peptide IgG Ab [Units/volume] in Serum or Plasma CCP ANTIBODY IGG Lab Routine Bilateral hand pain Foot pain, bilateral Expected: 02/02/2022, Expires: 04/04/2022 [facility] Work Phone: Comment on above: Expected: 02/02/2022, Expires: 2 Start: 02-02-2022 End: 04-04-2022 Erythrocyte sedimentation rate SED RATE WESTERGREN Lab Routine Bilateral hand pain Foot pain, bilateral Expected: 02/02/2022, Expires: 04/04/2022 [facility] Work Phone: Comment on above: Expected: 02/02/2022, Expires: 2 Start: 02-02-2022 End: 04-04-2022 Extractable nuclear Ab panel - Serum ANTI ABIGAIL ID Lab Routine Bilateral hand pain Foot pain, bilateral Expected: 02/02/2022, Expires: 04/04/2022 [facility] Work Phone: Comment on above: Expected: 02/02/2022, Expires: 2 Start: 02-02-2022 End: 04-04-2022 Ferritin [Mass/volume] in Serum or Plasma FERRITIN BLD Lab Routine Myalgia Iron deficiency Expected: 02/02/2022, Expires: 04/04/2022 [facility] Work Phone: Comment on above: Expected: 02/02/2022, Expires: 2 Start: 02-02-2022 End: 04-04-2022 Iron and Iron binding capacity panel - Serum or Plasma IRON + TIBC Lab Routine Myalgia Iron deficiency Expected: 02/02/2022, Expires: 04/04/2022 [facility] Work Phone: Comment on above: Expected: 02/02/2022, Expires: 2 Start: 02-02-2022 End: 04-04-2022 Magnesium [Mass/volume] in Serum or Plasma MAGNESIUM BLD Lab Routine Bilateral hand pain Foot pain, bilateral Expected: 02/02/2022, Expires: 04/04/2022 [facility] Work Phone: Comment on above: Expected: 02/02/2022, Expires: 2 Start: 02-02-2022 End: 04-04-2022 Nuclear Ab [Presence] in Serum by Immunoassay ROBERTA BLOOD Lab Routine Bilateral hand pain Foot pain, bilateral Expected: 02/02/2022, Expires: 04/04/2022 [facility] Work Phone: Comment on above: Expected: 02/02/2022, Expires: 2 Start: 02-02-2022 End: 04-04-2022 Rheumatoid factor [Units/volume] in Serum or Plasma RHEUMATOID FACTOR BL Lab Routine Bilateral hand pain Foot pain, bilateral Expected: 02/02/2022, Expires: 04/04/2022 [facility] Work Phone: Comment on above: Expected: 02/02/2022, Expires: 2 Start: 01-11-2022 End: 03-13-2022 TOX SCREEN ROUT UR TOX SCREEN ROUT UR Lab Routine ELIJAH (generalized anxiety disorder) Expected: 01/11/2022, Expires: 03/13/2022 [facility] Work Phone: Comment on above: Expected: 01/11/2022, Expires: 2 Start: 10-27-2021 End: 12-27-2021 Comprehensive metabolic 2000 panel - Serum or Plasma COMP METABOLIC PANEL Lab Routine ELIJAH (generalized anxiety disorder) Bipolar 2 disorder (HCC) Expected: 10/27/2021, Expires: 12/27/2021 [facility] Work Phone: Comment on above: Expected: 10/27/2021, Expires: 2 Start: 10-27-2021 End: 12-27-2021 TOX SCREEN ROUT UR TOX SCREEN ROUT UR Lab Routine ELIJAH (generalized anxiety disorder) Bipolar 2 disorder (HCC) Expected: 10/27/2021, Expires: 12/27/2021 [facility] Work Phone: Comment on above: Expected: 10/27/2021, Expires: 2 Start: 09-08-2010 HPV Vaccine (1 - 3-dose SCDM series) HPV Vaccine (1 - 3-dose SCDM series) [facility] Start: 09-08-2002 Hepatitis B Vaccine (1 of 3 - 19+ 3-dose series) Hepatitis B Vaccine (1 of 3 - 19+ 3-dose series) [facility] Start: 09-08-2002 ONE PNEUMOVAX PRIOR TO AGE 65 ONE PNEUMOVAX PRIOR TO AGE 65 [facility] Start: 09-08-2002 Pneumococcal vaccination Pneumococcal Vaccine (1 of 2 - PCV) [facility] Start: 09-08-2001 Depression Screening Depression Screening [facility] Start: 09-08-2001 HEPATITIS C SCREENING HEPATITIS C SCREENING [facility] Start: 09-08-2001 Hepatitis C screening Hepatitis C Screening [facility] Start: 09-08-2001 HIV SCREENING HIV SCREENING [facility] Start: 09-08-2001 HIV screening HIV Screening [facility] Start: 09-08-1993 Glaucoma screening Dilated Retinal Exam [facility] Start: 09-08-1993 Hepatitis B screening Urine Albumin:Creatinine Ratio [facility] Start: 09-08-1989 PNEUMOCOCCAL (1 - PCV) PNEUMOCOCCAL (1 - PCV) [facility] Start: 09-08-1989 [facility] Start: 03-11-1984 COVID-19 VACCINE (#1) COVID-19 VACCINE (#1) [facility] Start: 1983 HEPATITIS B (1 of 3 - 3-dose series) HEPATITIS B (1 of 3 - 3-dose series) [facility] Start: 1983 Hepatitis B Vaccine (1 of 3 - 3-dose series) Hepatitis B Vaccine (1 of 3 - 3-dose series) [facility] BETA 2 GLYCOPROTEIN, IGG BETA 2 GLYCOPROTEIN, IGG Lab Routine Antiphospholipid antibody syndrome (HCC) Superior mesenteric artery thrombosis (HCC) 10/02/2024 3:47 PM EDT [facility] BETA 2 GLYCOPROTEIN, IGM BETA 2 GLYCOPROTEIN, IGM Lab Routine Antiphospholipid antibody syndrome (HCC) Superior mesenteric artery thrombosis (HCC) 10/02/2024 3:47 PM EDT [facility] Cardiolipin IgA Ab [Units/volume] in Serum by Immunoassay CARDIOLIPIN IGA ABS Lab Routine Antiphospholipid antibody syndrome (HCC) Superior mesenteric artery thrombosis (HCC) 10/02/2024 3:47 PM EDT [facility] CARDIOLIPIN IGG ABS CARDIOLIPIN IGG ABS Lab Routine Antiphospholipid antibody syndrome (HCC) Superior mesenteric artery thrombosis (HCC) 10/02/2024 3:47 PM EDT [facility] CARDIOLIPIN IGM ABS CARDIOLIPIN IGM ABS Lab Routine Antiphospholipid antibody syndrome (HCC) Superior mesenteric artery thrombosis (HCC) 10/02/2024 3:47 PM EDT [facility] End: 11-10-2025 CT Chest W contrast IV CT CHEST W IVCON Radiology Routine Disorder of artery or arteriole 1 Occurrences starting 10/11/2024 until 11/10/2025 [facility] Comment on above: 1 Occurrences starting 10/11/2024 until 11/10/2025 End: 12-24-2022 ECG COMPLETE ECG COMPLETE ECG Routine ELIJAH (generalized anxiety disorder) 1 Occurrences starting 12/24/2021 until 12/24/2022 [facility] Work Phone: Comment on above: 1 Occurrences starting 12/24/2021 until 12/24/2022 End: 03-14-2024 ECG COMPLETE ECG COMPLETE ECG Routine Encounter for long-term (current) use of medications 1 Occurrences starting 03/14/2023 until 03/14/2024 [facility] Work Phone: Comment on above: 1 Occurrences starting 03/14/2023 until 03/14/2024 End: 05-18-2025 ECG COMPLETE ECG COMPLETE ECG Routine Encounter for long-term (current) use of medications 1 Occurrences starting 05/18/2024 until 05/18/2025 [facility] Comment on above: 1 Occurrences starting 05/18/2024 until 05/18/2025 ECG COMPLETE ECG COMPLETE ECG Routine Medication management Ordered: 08/07/2024 [facility] Work Phone: Comment on above: Ordered: 08/07/2024 End: 10-11-2025 EGD DIAGNOSTIC EGD DIAGNOSTIC Endoscopy Routine 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 1 Occurrences starting 10/11/2024 until 10/11/2025 [facility] Comment on above: 1 Occurrences starting 10/11/2024 until 10/11/2025 End: 10-11-2025 Flexible sigmoidoscopy study COLONOSCOPY DIAGNOSTIC Endoscopy Routine 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 1 Occurrences starting 10/11/2024 until 10/11/2025 [facility] Comment on above: 1 Occurrences starting 10/11/2024 until 10/11/2025 IMMUNOFIXATION SCREE N, SERUM IMMUNOFIXATION SCREEN, SERUM Lab Routine Antiphospholipid antibody syndrome (HCC) Superior mesenteric artery thrombosis (HCC) 10/02/2024 3:47 PM EDT [facility] KAPPA/JULIAN,FREE,SER KAPPA/JULIAN,F REE,SER Lab Routine Antiphospholipid antibody syndrome (HCC) Superior mesenteric artery thrombosis (HCC) 10/02/2024 3:47 PM EDT [facility] End: 11-17-2024 MG Breast Screening MILO SCREENING Radiology Routine Encounter for screening mammogram for breast cancer 1 Occurrences starting 10/19/2023 until 11/17/2024 [facility] Work Phone: Comment on above: 1 Occurrences starting 10/19/2023 until 11/17/2024 Protein [Mass/volume ] in Serum or Plasma PROTEIN, TOTAL Lab Routine Antiphospholipid antibody syndrome (HCC) Superior mesenteric artery thrombosis (HCC) 10/02/2024 3:47 PM EDT [facility] PROTEIN ELECTROPHORE SIS SERUM (P) PROTEIN ELECTROPHORESIS SERUM (P) Lab Routine Antiphospholipid antibody syndrome (HCC) Superior mesenteric artery thrombosis (HCC) 10/02/2024 3:47 PM EDT [facility] End: 03-11-2026 PT panel - Platelet poor plasma by Coagulation assay PROTHROMBIN TIME Lab Routine Deep vein thrombosis (DVT) of proximal lower extremity, unspecified chronicity, unspecified laterality (HCC) 2x per week for 99 Occurrences starting 03/11/2025 until 03/11/2026 [facility] Work Phone: Comment on above: 2x per week for 99 Occurrences starting 03/11/2025 until 03/11/2026 End: 11-10-2025 RF Colon Views W barium contrast MT XR COLON SINGLE CONTRAST Radiology Routine 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 1 Occurrences starting 10/11/2024 until 11/10/2025 [facility] Comment on above: 1 Occurrences starting 10/11/2024 until 11/10/2025 End: 11-10-2025 RF Gastrointestinal tract upper Views W barium contrast PO XR UPPER GI SINGLE CONTRAST Radiology Routine 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 1 Occurrences starting 10/11/2024 until 11/10/2025 [facility] Comment on above: 1 Occurrences starting 10/11/2024 until 11/10/2025 End: 09-11-2025 US Lower extremity artery - bilateral [facility] Work Phone: Comment on above: 1 Occurrences starting 09/11/2024 until 09/11/2025 End: 09-19-2025 US Lower extremity artery - bilateral [facility] Work Phone: Comment on above: 1 Occurrences starting 09/19/2024 until 09/19/2025 End: 03-04-2023 XR FOOT GENERAL 3V AP/LAT/OBL BILATERAL XR FOOT GENERAL 3V AP/LAT/OBL BILATERAL Radiology Routine Foot pain, bilateral 1 Occurrences starting 02/02/2022 until 03/04/2023 [facility] Work Phone: Comment on above: 1 Occurrences starting 02/02/2022 until 03/04/2023 End: 11-10-2025 XR GI SMALL BOWEL FOLLOW-THRU XR GI SMALL BOWEL FOLLOW-THRU Radiology Routine 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 1 Occurrences starting 10/11/2024 until 11/10/2025 [facility] Comment on above: 1 Occurrences starting 10/11/2024 until 11/10/2025 End: 03-04-2023 XR HAND GENERAL 3V PA/LAT/OBL BILATERAL XR HAND GENERAL 3V PA/LAT/OBL BILATERAL Radiology Routine Bilateral hand pain 1 Occurrences starting 02/02/2022 until 03/04/2023 [facility] Work Phone: Comment on above: 1 Occurrences starting 02/02/2022 until 03/04/2023 [facility] Immunizations Immunization Date Immunization Notes Care Provider Fa amy 05-21-2019 tetanus toxoid, redu leilani diphtheria toxoid, and acellular pertussis vaccine, adsorbed Room Emergency [facility] 07-12-2018 influenza virus vacc ine, unspecified formulation Clayton Granados APRN.CNP Work Phone: [facility] Payers Date Payer Category Payer Self-pay 2022 Unknown [id number] 2014 Medicaid [employer] [employer] [employer] [id number] 2014-Present [phone] [address] [place] [address] Medicaid [id number] 2014 Medicaid [id number]. [id number] 1983 Unknown [id number] 2.16.840.1.550766.3.579.2.66 8 1983 Unknown [id number] 2.16.840.1.859150.3.579.2.65 1 1983 Unknown [id number] 2.16.840.1.496800.3.579.2.65 1 1983 Unknown [id number] 2.16.840.1.497822.3.579.2.65 1 1983 Unknown [id number] 2.16.840.1.802693.3.579.2.65 1 1983 Unknown [id number] 2.16.840.1.847002.3.579.2.65 1 1983 Unknown [id number] 2.16.840.1.568163.3.579.2.62 7 Unknown [id number] 2.16.840.1.711610.3.579.2.46 2 Unknown [id number] 2.16.840.1.104919.3.579.2.46 2 Unknown [id number] 2.16.840.1.512552.3.579.2.46 2 Unknown [id number] 2.16.840.1.526002.3.579.2.46 2 Unknown [id number] 2.16.840.1.307620.3.579.2.46 2 Unknown [id number] 2.16.840.1.830630.3.579.2.46 2 Unknown [id number] 2.16.840.1.425623.3.579.2.46 2 Unknown [id number] 2.16.840.1.073696.3.579.2.46 2 Unknown [id number] 2.16.840.1.508024.3.579.2.46 2 Unknown [id number] 2.16.840.1.983318.3.579.2.46 2 Unknown [id number] 2.16.840.1.727701.3.579.2.46 2 Unknown [id number] 2.16.840.1.517757.3.579.2.46 2 Unknown [id number] 2.16.840.1.073181.3.579.2.46 2 Unknown [id number] 2.16.840.1.846019.3.579.2.46 2 Unknown [id number] 2.16.840.1.156406.3.579.2.46 2 Unknown [id number] 2.16.840.1.132654.3.579.2.46 2 Unknown [id number] 2.16.840.1.155142.3.579.2.46 2 Unknown [id number] 2.16.840.1.982552.3.579.2.46 2 Unknown [id number] 2.16.840.1.152169.3.579.2.46 2 Unknown [id number] 2.16.840.1.109449.3.579.2.46 2 Unknown [id number] 2.16.840.1.637748.3.579.2.46 2 Unknown [id number] 2.16.840.1.360846.3.579.2.46 2 Unknown [id number] 2.16.840.1.121146.3.579.2.46 2 Unknown [id number] 2.16.840.1.574321.3.579.2.46 2 Unknown [id number] 2.16.840.1.134340.3.579.2.46 2 Unknown [id number] 2.16.840.1.497623.3.579.2.46 2 Unknown [id number] 2.16.840.1.800515.3.579.2.46 2 Unknown [id number] 2.16.840.1.752697.3.579.2.46 2 Unknown [id number] 2.16.840.1.026139.3.579.2.46 2 Unknown [id number] 2.16.840.1.210273.3.579.2.46 2 Unknown [id number] 2.16.840.1.304479.3.579.2.46 2 Unknown [id number] 2.16.840.1.541663.3.579.2.46 2 Unknown [id number] 2.16.840.1.442417.3.579.2.46 2 Unknown [id number] 2.16.840.1.019100.3.579.2.46 2 Unknown [id number] 2.16.840.1.874106.3.579.2.46 2 Unknown [id number] 2.16.840.1.718169.3.579.2.46 2 Unknown [id number] 2.16.840.1.150214.3.579.2.46 2 Unknown [id number] 2.16.840.1.302438.3.579.2.46 2 Unknown [id number] 2.16.840.1.919514.3.579.2.46 2 Unknown [id number] 2.16.840.1.189734.3.579.2.46 2 Worker's Compensation Social History Date Type Detail Facility Start: 07-18-2019 End: 09-19-2024 Tobacco smoking status RIIS Smokes tobacco daily [facility] Work Phone: End: 04-13-2015 History of tobacco use Smoker [facility] Work Phone: Start: 07-18-2019 End: 10-02-2024 Tobacco use and exposure Smokeless tobacco non-user [facility] Work Phone: Start: 10-10-2021 End: 08-20-2024 Alcohol intake Current drinker of alcohol (finding) [facility] Start: 07-18-2021 History SDOH Alcohol Frequency 4 [facility] Start: 07-18-2021 End: 07-13-2022 History SDOH Alcohol Std Drinks 2 [facility] Start: 07-18-2021 End: 07-13-2022 History SDOH [facility] Start: 07-18-2021 End: 07-13-2022 History SDOH Social Connections Living 7 [facility] Start: 07-18-2021 End: 07-13-2022 History SDOH Stress 5 [facility] Start: 11-07-2019 Education 21 [facility] Start: 1985 Sex Assigned At Not on file C [facility] Start: 09-30-2021 End: 10-10-2021 Exposure to SARS-CoV-2 (event) Yes [facility] Start: 02-10-2021 End: 03-29-2022 Exposure to SARS-CoV-2 (event) Not sure [facility] End: 04-13-2015 History of tobacco use Cigarette Smoker [facility] Work Phone: Start: 07-13-2022 History SDOH Alcohol Std Drinks 0 [facility] Start: 07-13-2022 History SDOH Physica l Activity MPS 3 [facility] Start: 07-12-2022 End: 01-28-2025 History of Social function [facility] Start: 07-12-2022 End: 01-28-2025 Social connection and isolation panel [facility] Do you belong to any clubs or organizations such as worship groups, unions, fraternal or athletic groups, or school groups? No [facility] Are you now , , , , never or living with a partner? Never [facility] How often to you hav e a drink containing alcohol? Never [facility] Start: 05-28-[address] inks containing alcohol do you have on a typical day? Patient does not drink [facility] How hard is it for y ou to pay for the very basics like food, housing, medical care, and heating Very hard [facility] Do you feel stress - tense, restless, nervous, or anxious, or unable to sleep at night because your mind is troubled all the time - these days [OSQ] Very much [facility] (I/We) worried wheth er (my/our) food would run out before (I/we) got money to buy more. Often true [facility] Are you now , , , , never or living with a partner? Living with partner [facility] How often to you hav e a drink containing alcohol? 2-4 times a month [facility] How many standard dr inks containing alcohol do you have on a typical day? 3 or 4 [facility] How often do you hav e 6 or more drinks on 1 occasion? Less than monthly [facility] How hard is it for y ou to pay for the very basics like food, housing, medical care, and heating Somewhat hard [facility] (I/We) worried wheth er (my/our) food would run out before (I/we) got money to buy more. Never true [facility] (I/We) worried wheth er (my/our) food would run out before (I/we) got money to buy more. Sometimes true [facility] Start: 09-19-2024 Tobacco Comment Pateint only u ses the Vape She doesnt smoke nicotine [facility] Start: 10-02-2024 Tobacco smoking stat us NHIS Ex-smoker [facility] Start: 10-02-2024 End: 03-01-2025 Alcoholic beverage intake Ex-drinker (finding) [facility] Start: 10-02-2024 Tobacco Comment Pateint only u ses the Vape She doesnt smoke nicotine Patient quit smoking 08/20/2024 [facility] Medical Equipment Procedure Code Equipment Code Equipment Origin al Text Equipment Identifier Dates Catheter Sampson Surecuff 9.6fr 3.2mm 1.6mm 2 Branch 90cm Central Venous 1 - [id number] Start: 08-26-2024 Tray Powerpicc 5 fr .018in Nitinol 70cm Catheter 2 Lumen Guidewire - [id number] Start: 12-08-2024 Goals Date Patient Goal Desired Activity /State Personal health goal Personal health goal Functional Status Date Assessment Result Facility 12-21-2024 Are you deaf, or do you have serious difficulty hearing No 12/21/2024 2:10 PM EDT Morena Toth, NATHANAEL No [facility] 12-21-2024 Are you blind, or do you have serious difficulty seeing, even when wearing glasses No 12/21/2024 2:10 PM EDT Morena Toth, NATHANAEL No [facility] 12-21-2024 Do you have serious difficulty walking or climbing stairs No 12/21/2024 2:10 PM EDT Morena Toth, NATHANAEL No [facility] 12-21-2024 Do you have difficul ty dressing or bathing No 12/21/2024 2:10 PM EDT Morena Toth, NATHANAEL No [facility] 12-21-2024 Because of a physica l, mental, or emotional condition, do you have difficulty doing errands alone such as visiting a physician's office or shopping No 12/21/2024 2:10 PM EDT Morena Toth, NATHANAEL No [facility] 10-26-2024 Are you deaf, or do you have serious difficulty hearing No 10/26/2024 4:40 PM EDT Lyla Sullivan, NATHANAEL No [facility] 10-26-2024 Are you blind, or do you have serious difficulty seeing, even when wearing glasses No 10/26/2024 4:40 PM EDT Lyla Sullivan, NATHANAEL No [facility] 10-26-2024 Do you have serious difficulty walking or climbing stairs No 10/26/2024 4:40 PM EDT Lyla Sullivan, NATHANAEL No [facility] 10-26-2024 Do you have difficul ty dressing or bathing No 10/26/2024 4:40 PM EDT Lyla Sullivan, NATHANAEL No [facility] 10-26-2024 Because of a physica l, mental, or emotional condition, do you have difficulty doing errands alone such as visiting a physician's office or shopping No 10/26/2024 4:40 PM EDT Lyla Sullivan, RN No [facility] 09-03-2024 Are you deaf, or do you have serious difficulty hearing No 09/03/2024 8:13 PM Annabella Ramachandran RN No [facility] 09-03-2024 Are you blind, or do you have serious difficulty seeing, even when wearing glasses No 09/03/2024 8:13 PM Annabella Ramachandran, NATHANAEL No [facility] 09-03-2024 Do you have serious difficulty walking or climbing stairs No 09/03/2024 8:13 PM Annabella Ramachandran RN No [facility] 09-03-2024 Do you have difficul ty dressing or bathing No 09/03/2024 8:13 PM Annabella Ramachandran RN No [facility] 09-03-2024 Because of a physica l, mental, or emotional condition, do you have difficulty doing errands alone such as visiting a physician's office or shopping Yes 09/03/2024 8:13 PM Annabella Ramachandran RN Yes [facility] 01-28-2015 Are you deaf, or do you have serious difficulty hearing No 01/28/2015 11:33 AM Jennifer Davis MA No [facility] 01-28-2015 Are you blind, or do you have serious difficulty seeing, even when wearing glasses No 01/28/2015 11:33 AM Jennifer Davis MA No [facility] 01-28-2015 Do you have serious difficulty walking or climbing stairs No 01/28/2015 11:33 AM Jennifer Davis MA No [facility] 01-28-2015 Do you have difficul ty dressing or bathing No 01/28/2015 11:33 AM Jennifer Davis MA No [facility] 01-28-2015 Because of a physica l, mental, or emotional condition, do you have difficulty doing errands alone such as visiting a physician's office or shopping No 01/28/2015 11:33 AM Jennifer Davis MA No [facility] Mental Status Date Assessment Result Facility 12-21-2024 Because of a physica l, mental, or emotional condition, do you have serious difficulty concentrating, remembering, or making decisions No 12/21/2024 2:10 PM EDT Morena Toth, NATHANAEL No [facility] 10-26-2024 Because of a physica l, mental, or emotional condition, do you have serious difficulty concentrating, remembering, or making decisions No 10/26/2024 4:40 PM EDT Lyla Sullivan, NATHANAEL No [facility] 09-03-2024 Because of a physica l, mental, or emotional condition, do you have serious difficulty concentrating, remembering, or making decisions No 09/03/2024 8:13 PM EDT Annabella Jarquin, NATHANAEL No [facility] 01-28-2015 Because of a physica l, mental, or emotional condition, do you have serious difficulty concentrating, remembering, or making decisions Yes 01/28/2015 11:33 AM EDT Jennifer Hilliard MA Yes [facility] Clinical Notes 11-22-2017 to 05-02-2025 Addendum Note - David Nj [facility] - 03/11/2025 2:16 PM EDTAddendum Note - David Nj [facility] 03/11/2025 2:16 PM EDTTelephone Encounter - David Nj [facility] 03/11/2025 2:14 PM EDT Note Date & Type Note Facility 05-02-2025 Note HNO ID: [id number] Author: KARTHIK MALDONADO APRN.JUMBO OPERATOR Service: ? Author Type: Nurse Practitioner Type: Progress Notes Filed: 05/02/2025 12:36 Note Text: [facility] Today's Date: 05/02/2025 Name: Daly Evans [...] prescribed by her nurse practitioner at [facility], which she reports helps significantly. [...] She is currently seeing a doctor at [facility] for her knee pain and is [...] and validated on 05/02/2025 by Karthik Maldonado APRN.JUMBO OPERATOR All prescriptions have been APPROPRIATELY filled. No suspicious activity was identified. (more content not included)... [facility] 05-02-2025 Note HNO ID: [id number] Author: DALY RODRIGUEZ LPN Service: ? Author [...] for suicidal ideas. The patient is nervous/anxious. [facility] 03-11-2025 Note Addended by: DAVID SMITH on: 03/11/2025 02:16 PM Modules accepted: Orders [facility] 03-11-2025 Miscellaneous Notes Addended by: DAVID NJ on: 03/11/2025 02:16 PM Modules accepted: Orders Spoke with patient and advised can stop warfarin and switch to Eliquis if INR <2.0. Recommended patient have more updated INR drawn as last INR from 02/28/25 (1.4) but patient has been taking warfarin since that time. David Nj, PharmD, [facility] [phone] Spoke with patient who advised she has a starter Eliquis package but needs advise on how to transition to Eliquis. Pharmacy Antico[facility] Clinic will disregard referral at this time. Will route to pharmacist and JUMBO OPERATOR to advise patient on transition from warfarin to Eliquis. Janelle Greenberg RN Pharmacy Anticoagulation [facility] Patient may not be switching to warfarin. Noted in Mychart message Eliquis has been approved by insurance. Janelle Greenberg RN [facility] Call to patient's home/cell telephone number; left a voicemail message with request for the patient to return call to PAC at [phone] Option #2. Mychart message sent. Janelle Greenberg RN Pharmacy, Anticoagulation Clinic A call was placed to patient's home and cell telephone number. A voicemail message was left with request for patient to return call to Pharmacy [facility]tico[facility] at [phone] Option #2 to discuss new referral to PAC. Janelle Greenberg RN Pharmacy, Anticoagulation Clinic documented in this encounter [facility] 03-11-2025 Telephone encounter Note Spoke with patient and advised can stop warfarin and switch to Eliquis if INR <2.0. Recommended patient have more updated INR drawn as last INR from 02/28/25 (1.4) but patient has been taking warfarin since that time. David Nj PharmD, [facility] [phone] [facility] 03-11-2025 Telephone encounter Note Spoke with patient who advised she has a starter Eliquis package but needs advise on how to transition to Eliquis. [facility] will disregard referral at this time. Will route to pharmacist and JUMBO OPERATOR to advise patient on transition from warfarin to Eliquis. Janelle Greenberg RN Pharmacy Anticoagulation Clinic [facility] 03-08-2025 Telephone encounter Note Patient may not be switching to warfarin. Noted in Mychart message Eliquis has been approved by insurance. Janelle Greenberg RN Pharmacy Anticoagulation Clinic [facility] 03-08-2025 Telephone encounter Note The [...] identified. 03/08/2025 by Xochilt Gaston CNP. [facility] 03-08-2025 Miscellaneous Notes The following approved medication requests have been transmitted electronically. Requested Prescriptions Signed Prescriptions Disp Refills gabapentin (NEURONTIN) 300 mg capsule 60 capsule 2 Sig: Take 1 capsule by mouth every 12 hours for 90 days. Authorizing Provider: FREDRICK BOLAND Ordering User: XOCHILT GASTON APRN.CNP PDM website checked and validated. All prescriptions have [...] a hold of me, my number is [phone]. Thanks! Laura documented in this encounter [facility] 03-07-2025 Telephone encounter Note Called [...] Ritter RN March 07, 2025 7:38 PM [facility] 03-07-2025 Telephone encounter Note Please confirm her gabapentin dose, I'm unsure exactly what it is when looking at her MAR. Then I'm happy to send this in for her. Xochilt Gaston APRN.JUANY PDMP website checked and validated. All prescriptions have been APPROPRIATELY filled. No suspicious activity was identified. 03/07/2025 by Xochilt Gaston CNP. [facility] 03-06-2025 Telephone encounter Note I am out of gabapentin, and was hoping to get a refill before the weekend. It helps my wound on my left heel, and my stomach. If you need to get a hold of me, my number is [phone]. Thanks! Laura T [facility] Work Phone: 03-06-2025 Telephone encounter Note Call to patient's home/cell telephone number; left a voicemail message with request for the patient to return call to PAC at [phone] Option #2. Mychart message sent. Janelle Greenberg RN Pharmacy, Anticoagulation Clinic [facility] 03-05-2025 Telephone encounter Note Message on phone and MC left with appointment info. Fabienne Mo LPN T [facility] 03-05-2025 Miscellaneous Notes Message on phone and MC left with appointment info. 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 Patient/authorized textile machinery sales representative agreed to proceed HPI: The [...] PAST MEDICAL HISTORY Diagnosis Date Attempted suicide ([facility]) polysubstance Bipolar depression ([facility]) [facility] Gestational diabetes mellitus in ([facility]) Impaired fasting blood sugar 06/2015 a1c [...] Gaston APRN.CNP documented in this encounter [facility] 03-01-2025 Telephone encounter Note A call was placed to patient's home and cell telephone number. A voicemail message was left with request for patient to return call to Pharmacy Anticoagulation Clinic at [phone] Option #2 to discuss new referral to PAC. Janelle Greenberg RN Pharmacy, Anticoagulation Clinic [facility] 03-01-2025 Instructions Xochilt Gaston APRN.CNP - 03/01/2025 11:13 AM EDT Increase your potassium pills to 3 a day and we'll recheck your level next 03/06 Increase your Coumadin (warfarin) to the 3mg daily, we'll recheck your next level 03/06 We'll get you set up with the Coumadin clinic documented in this encounter [facility] 03-01-2025 Telephone encounter Note Call [...] is same weight [facility]. HPN signed off due to noncompliance, self [...] Abs Lymph 1.00 - 4.00 k/uL 2.31 [place]% % 7.6 Abs [place] <0.87 k/uL 0.58 Eosin% % 2.0 Abs [...] High (L) Low Chance Florentino RN [facility] 03-01-2025 Miscellaneous Notes Call placed [...] is same weight as [facility] weight [facility]. HPN signed off due to noncompliance, self [...] Abs Lymph 1.00 - 4.00 k/uL 2.31 [place]% % 7.6 Abs [place] <0.87 k/uL 0.58 Eosin% % 2.0 Abs [...] Florentino RN documented in this encounter [facility] 03-01-2025 Telephone encounter Note Addressed in phone encounter Chance Florentino RN [facility] 03-01-2025 Miscellaneous Notes Addressed in phone encounter Chance Florentino RN documented in this encounter [facility] 02-26-2025 Instructions Clayton Granados APRN.JUMBO OPERATOR - 02/26/2025 4:04 PM EDT - Continue [...] (potassium, magnesium, sodium, kidney function, CBC) to [employer] so they can be reviewed. - If your uploaded results aren t available or show persistent abnormalities, complete the additional labs already ordered by Ed Saxena. - After reviewing your labs, you will receive a [employer] message with next steps--this may include increasing Lexapro back to 40 mg or other recommendations. For those experiencing a suicidal crisis: --call the National Suicide Prevention Lifeline at 988 (522.928.7027) --text the Crisis Text Line (text HOME to 759400) --call 911 and let them know you are having a mental health crisis or go to your nearest Emergency Room for stabilization. --You can also call Mobile Crisis at [phone]. -- You may call the department appointment line at [phone] to schedule your appointment. -- Please call my nurse at [phone] or send me a message in [employer] with any questions or concerns between appointments. documented in this encounter [facility] 02-26-2025 History of Present illness [...] visit. Either the patient or their legal textile machinery sales representative has been informed of the risks and benefits of -- and alternatives to -- treatment through a remote evaluation and consents to proceed with the evaluation remotely. Recording using LookFlow software for draft documentation of the visit was discussed with the patient/authorized textile machinery sales representative; all questions welcomed and answered. Patient/authorized textile machinery sales representative agreed to proceed CC: Outpatient [...] suicide (HCC) polysubstance Bipolar depression (HCC) [facility] Gestational diabetes mellitus [...] to upload recent hospital lab results to [facility] for review. - Zyprexa refills sent. 4. [...] to upload recent hospital lab results to [employer] for review. - Will hold off on [...] 3:33 PM documented in this encounter [facility] 02-26-2025 History of Present illness Narrative [facility] SERVICE DATE: 02/26/2025 SERVICE TIME: 10:00am Additional Comments: Pt appears on [facility] Social Work Pro Report with a PHQ [...] 10:02 AM documented in this encounter [facility] 02-23-2025 Note [facility] 02-22-2025 Telephone encounter Note Study Title: IRB: 23-738 Caring for OutPatiEnts after Acute Kidney Injury (COPE-JONATAN) trial PI: Dr. Juan Manuel Byrd Date: 02/22/2025 Visit #: Week 9 post Index hospitalization I called the patient to follow up on her participation in the COPE-JONATAN study. Patient is currently hospitalized at [facility] Phone conversation and chart review completed for [...] or burning on void [x]Pain - currently 09/03; hips hurt from prolonged immobility following surgical [...] post-index hospitalization [x] PCP - 02/28/2025 at [facility] [] Other provider Next Nurse Navigator phone follow-up call due 03/08/2025 for the three month follow-up visit. Patient verbalized understanding. Amy Colvin [facility] February 22, 2025 3:20 PM Addendum created on 02/22/2025 for source document clarification. Amy Colvin [facility] February 22, 2025 4:35 PM [facility] 02-22-2025 Miscellaneous Notes Study Title: IRB: 23-738 Caring for OutPatiEnts after Acute Kidney Injury (COPE-JONATAN) trial PI: Dr. Juan Manuel Byrd Date: 02/22/2025 Visit #: Week 9 post Index hospitalization I called the patient to follow up on her participation in the COPE-JONATAN study. Patient is currently hospitalized at [facility] Phone conversation and chart review completed for [...] post-index hospitalization [x] PCP - 02/28/2025 at [facility] [] Other provider Next Nurse Navigator phone follow-up call due 03/08/2025 for the three month follow-up visit. Patient verbalized understanding. Amy Colvin [facility] February 22, 2025 3:20 PM Addendum created on 02/22/2025 for source document clarification. Amy Rasmussen February 22, 2025 4:35 PM documented in this encounter [facility] 02-11-2025 Telephone encounter Note Please see pt message and advise. Once complete, send to information below from pt and update via [employer]. Lauren Hull MA Pt message: I need a doctor's referral for a physical capacity assessment, for a disability claim. I can go to [facility] ([phone]) or [facility] in [place] (fax [phone]). I greatly appreciate it. Daly [facility] 02-11-2025 Miscellaneous Notes Please see pt message and advise. Once complete, send to information below from pt and update via [employer]. Lauren Hull MA Pt message: I need a doctor's referral for a physical capacity assessment, for a disability claim. I can go to [facility] ([phone]) or [facility] in [place] (fax [phone]). I greatly appreciate it. Daly documented in this encounter [facility] 02-11-2025 Telephone encounter Note Turned into TE and routed to PCP to advise. Lauren Hull MA [facility] 02-11-2025 Miscellaneous Notes Turned into TE and routed to PCP to advise. Lauren Hull MA documented in this encounter [facility] 02-08-2025 Telephone encounter Note Study Title: IRB: 23-738 Caring for OutPatiEnts after Acute Kidney Injury (COPE-JONATAN) trial PI: Dr. Juan Manuel Byrd Date: 02/08/2025 Visit #: Week 7 post Index hospitalization I called the patient to follow up on her participation in the COPE-JONATAN study. msg left to return my call. Chart review completed for the following: [facility]:N/A - device use history not recorded [...] in 2-3 days, pending return call from [facility]. Amy Rasmussen February 08, 2025 4:22 PM [facility] 02-08-2025 Miscellaneous Notes Study Title: IRB: 23-738 Caring for OutPatiEnts after Acute Kidney Injury (COPE-JONATAN) trial PI: Dr. Juan Manuel Byrd Date: 02/08/2025 Visit #: Week 7 post Index hospitalization I called the patient to follow up on her participation in the COPE-JONATAN study. left to return my call. Chart review completed for the following: Access patients data on [employer] dashboard:N/A - device use history not recorded [...] in 2-3 days, pending return call from [facility]. Amy Rasmussen February 08, 2025 4:22 PM documented in this encounter [facility] 02-07-2025 Telephone encounter Note Prescription for Flagyl sent to local pharmacy. Sandra Castle PA-C [facility] 02-07-2025 Miscellaneous Notes Prescription for [...] my chart. documented in this encounter [facility] 02-07-2025 Telephone encounter Note I [...] signature. Pt notified via my chart. [facility] 01-28-2025 Instructions Ed Saxena APRN.JUANY - 01/28/2025 2:35 PM EDT Get your labs on your way out today documented in this encounter [facility] 01-28-2025 History of Present illness [...] suicide (HCC) polysubstance Bipolar depression (HCC) [facility] Gestational diabetes mellitus in (HCC) Impaired fasting [...] needing to have her picc line removed. MEAL GRINDER TENDER calling wound center to see if they are comfortable doing so. Labs being drawn today. Discussed treatment plan and patient voices understanding. Patient's questions answered appropriately. Medications and potential side effects were discussed and patient voices understanding. Return to the office as scheduled or as needed for worsening/no improvement. Ed Saxena APRN.JUMBO OPERATOR Recording using LookFlow software for draft documentation of the visit was discussed with the patient/authorized textile machinery sales representative; all questions welcomed and answered. Patient/authorized textile machinery sales representative agreed to proceed documented in this encounter [facility] 01-28-2025 Telephone encounter Note Study [...] Montalvo January 28, 2025 12:18 PM [facility] 01-28-2025 Miscellaneous Notes Study Title: [...] 12:18 PM documented in this encounter [facility] 01-24-2025 Telephone encounter Note Home Nutrition Support Service Dr. Elaine responded and said he agrees we should not manage patient again in the future if she were to require PN again. Routed letter to Dr. Montoya and Tabatha Jalloh for review and signature, to then be mailed via certified and regular mail alerting patient to this. Email ombudsman alerting them of situation. Signoff orders and [...] given severe non-compliance - Email sent to matt as FYI on situation - PICC removal order faxed to infusion center. Infusion center will call patient to schedule removal - HNS episode closed Bisi Seo RD, DEON, CNSC [facility] Work Phone: 01-24-2025 Miscellaneous Notes Home Nutrition Support Service Dr. Elaine responded and said he agrees we should not manage patient again in the future if she were to require PN again. Routed letter to Dr. Montoya and Tabatha Jalloh for review and signature, to then be mailed via certified and regular mail alerting patient to this. Email matt alerting them of situation. Signoff orders and [...] given severe non-compliance - Email sent to matt as FYI on situation - PICC removal order faxed to infusion center. Infusion center will call patient to schedule removal - HNS episode closed Bisi Seo RD, LD, CNSC documented in this encounter [facility] 01-24-2025 Telephone encounter Note Called spoke with pt gave information provided. Pt voices understanding. [facility] 01-24-2025 Miscellaneous Notes Called spoke with pt gave information provided. Pt voices understanding. Images from the original note were not included. Ed Saxena APRN.JUANY to [facility] 01/24/25 8:59 AM Result Note [...] went over results, notes from Ed Saxena CIVIL DESIGNER with understanding. documented in this encounter [facility] 01-24-2025 Telephone encounter Note Images from the original note were not included. Ed Saxena APRN.JUMBO OPERATOR to [facility] 01/24/25 8:59 AM Result Note Call placed [...] went over results, notes from Ed Saxena CIVIL DESIGNER with understanding. [facility] 01-23-2025 Telephone encounter Note Agree that we should not manage in the future. Very sad for her. Farzaneh Elaine MD January 23, 2025 [facility] Work Phone: 01-23-2025 Miscellaneous Notes Agree that we should not manage in the future. Very sad for her. Farzaneh Elaine MD January 23, 2025 Home Nutrition Support Service Received email from [facility] that patient is refusing delivery/all [...] non-compliance letter to patient and email to Anthonysaint johns once confirmed with Dr. Montoya and Dr. Elaine that HNS would not manage in future if patient were to need PN given severe non-compliance and complete self-weaning of PN. Reccs: - Sign off orders sent to [facility] as patient self-weaned her PN [...] LD, CNSC documented in this encounter [facility] 01-23-2025 Telephone encounter Note Home Nutrition Support Service Received email from [facility] that patient is refusing delivery/all [...] non-compliance letter to patient and email to Matt once confirmed with Dr. Montoya and Dr. Elaine that HNS would not manage in future if patient were to need PN given severe non-compliance and complete self-weaning of PN. Reccs: - Sign off orders sent to [facility] as patient self-weaned her PN [...] PN Bisi Seo RD, LD, CNSC [facility] Work Phone: 01-17-2025 Telephone encounter Note Home Nutrition Support Service Patient called office and stated she needs to stop TPN because she no longer has room in her refrigerator, and because Dr. Devine said she needs to stop. [facility]ed [facility] encounters. Last encounter with Dr. Devine was [...] last week Bisi Seo RD, LD, CNSC [facility] Work Phone: 01-17-2025 Miscellaneous Notes [...] Dr. Devine that she needs to discontinue. [phone] documented in this encounter [facility] 01-17-2025 Telephone encounter Note Pt called to discuss weaning TPN. Has been told by Dr. Devine that she needs to discontinue. [phone] [facility] 01-14-2025 Telephone encounter Note Call [...] get it drawn tomorrow. Ed Saxena APRN.JUANY [place] [id number] Miscellaneous Notes Call placed to Daly about [...] get it drawn tomorrow. Ed Saxena APRN.JUANY documented in this encounter [facility] 01-11-2025 Instructions Clayton Granados APRN.JUANY - 01/11/2025 [...] has been sent to your [facility] pharmacy in [address]. - If you experience any gastrointestinal side [...] - Your next appointment is scheduled for Tuesday, March 04, at 2:00 PM. Please let me know if you experience any issues with the Lexapro dose increase or have any other concerns before then. Take care, and I look forward to seeing you at your next visit. For those experiencing a suicidal crisis: --call the National Suicide Prevention Lifeline at 894 (769-333-9093) --text the Crisis Text Line (text HOME to 220166) --call 911 and let them know you are having a mental health crisis or go to your nearest Emergency Room for stabilization. --You can also call Mobile Crisis at [phone]. -- You may call the department appointment line at [phone] to schedule your appointment. -- Please call my nurse at [phone] or send me a message in [employer] with any questions or concerns between appointments. documented in this encounter [facility] 01-11-2025 History of Present illness [...] visit. Either the patient or their legal textile machinery sales representative has been informed of the risks and benefits of -- and alternatives to -- treatment through a remote evaluation and consents to proceed with the evaluation remotely. Recording using ambient Nexthink software for draft documentation of the visit was discussed with the patient/authorized textile machinery sales representative; all questions welcomed and answered. Patient/authorized textile machinery sales representative agreed to proceed CC: Outpatient [...] mg during her hospital stay at [facility], reportedly due to concerns about [...] 3:12 PM documented in this encounter [facility] 01-10-2025 Ed Romano APRN.JUANY - 01/10/2025 2:51 PM EDT Do [...] next week documented in this encounter [facility] 01-10-2025 History of Present illness [...] After all this she was discharged to [facility] around 09/03/24. Then 10/09 she had an accidental overdose of methadone at [facility], started having high output from her stoma [...] during stay in November Staple Removal: - [place] and sutures in place from recent abdominal [...] which included preparing to see the patient, [id number] patient care, obtaining and/or reviewing separately obtained [...] as needed for worsening/no improvement. Ed Saxena APRN.JUMBO OPERATOR Recording using LookFlow software for draft documentation of the visit was discussed with the patient/authorized textile machinery sales representative; all questions welcomed and answered. Patient/authorized textile machinery sales representative agreed to proceed documented in this encounter [facility] 01-10-2025 Telephone encounter Note Home [...] to include CRP Mayra Alexandre RD [facility] 01-10-2025 Miscellaneous Notes Home Nutrition [...] to the ED for repletion. Noted that [facility] has not been able to get ahold of patient since discharge, and these labs are overdue from 12/31. Discussed this w/ patient and she agreed to call [facility] back tomorrow so we can discuss overall plan/ New Patient Week 1. Recs: - Await ED outcome Mayra Alexandre RD documented in this encounter [facility] 01-10-2025 Telephone encounter Note Home Nutrition Support Service Call to pt to follow up. ED visit not seen in [facility] though may have gone to local ED not viewable in [facility]/Care everywhere. No answer, LVM. Rec: await return call aStish Haider RD, LD, CNSC [facility] Work Phone: 01-09-2025 Telephone encounter [...] following: Access patients data on [employer] dashboard: N/A -[employer] devices not in use. [...] Provider Follow-up appointments: [x] COPE Study Team, [facility] follow-up due between 01/13 - 01/27/2025 [] PCP [] Other provider Next Nurse Navigator phone follow-up call due at 5-weeks post-hospital discharge, on or before 01/25/2025. Patient verbalized understanding. Amy Rasmussen January 09, 2025 11:16 AM [facility] 01-09-2025 Miscellaneous Notes Study Title: IRB: [id number] Caring for OutPatiEnts after Acute Kidney Injury (COPE-JONATAN) trial PI: Dr. Juan Manuel Byrd Date: 01/09/2025 Visit #: Week 3 post Index hospitalization I called the patient to follow up on her participation in the COPE-JONATAN study. Phone conversation and chart review completed for the following: Access patients data on [employer] dashboard: N/A -[employer] devices not in use. [...] Provider Follow-up appointments: [x] COPE Study Team, [facility] follow-up due between 01/13 - 01/27/2025 [] PCP [] Other provider Next Nurse Navigator phone follow-up call due at 5-weeks post-hospital discharge, on or before 01/25/2025. Patient verbalized understanding. Amy Rasmussen January 09, 2025 11:16 AM documented in this encounter [facility] 01-08-2025 Telephone encounter Note Home [...] to the ED for repletion. Noted that [facility] has not been able to get ahold of patient since discharge, and these labs are overdue from 12/31. Discussed this w/ patient and she agreed to call [facility] back tomorrow so we can discuss overall plan/ New Patient Week 1. Recs: - Await ED outcome Mayra Alexandre RD [facility] 01-07-2025 Telephone encounter Note Record ID: [id number] Patient name: Daly Evans Date: January 07, [...] the button with your last name. -> Critsina Got it, thank you. Please enter your [...] moved to different rooms five times [facility] 01-07-2025 Miscellaneous Notes Record ID: [id number] Patient name: Daly Evans Date: January 07, [...] five times documented in this encounter [facility] 01-04-2025 Telephone encounter Note Unable To Reach Patient Patient's name appears on the [employer] report for a PHQ-9 score of 14 and +9. Second attempt:SW called Patient to follow up and left a VM requesting a call back. MONIKA Dhillon [facility] 01-04-2025 Miscellaneous Notes Unable To Reach Patient Patient's name appears on the [employer] report for a PHQ-9 score of 14 and +9. Second attempt:SW called Patient to follow up and left a VM requesting a call back. MONIKA Dhillon documented in this encounter [facility] 01-03-2025 Telephone encounter Note Unable To Reach Patient Patient's name appears on the PRO [employer] report for a PHQ-9 score of 14 and +9. SW called Patient to follow up and left a VM requesting a call back. [employer] SEVERITY RATING SCALE Unable to reach Patient to assess. MONIKA Dhillon [facility] 01-03-2025 Miscellaneous Notes Unable To Reach Patient Patient's name appears on the PRO [employer] report for a PHQ-9 score of 14 and +9. SW called Patient to follow up and left a VM requesting a call back. [employer] SUICIDE SEVERITY RATING SCALE Unable to reach Patient to assess. MONIKA Dhillon documented in this encounter [facility] 01-02-2025 Telephone encounter Note Transitional Care Management (TCM) [facility] Monitoring Program Provider Action / FYI: N/a SUMMARY: Outreach type: INITIAL OUTREACH Discharge Network Status: In-Network Discharge Source of Patient: [facility] TCM Discharge Report Patient discharged from [facility] on 12/21/2024. Admitted for Lactic acidosis. Contact made with patient: No, for Follow-up - end outreach and close encounter. Polly Blanton January 02, 2025 2:24 PM [facility] 01-02-2025 Miscellaneous Notes Transitional Care Management (TCM) [facility] Monitoring Program Provider Action / FYI: N/a SUMMARY: Outreach type: INITIAL OUTREACH Discharge Network Status: In-Network Discharge Source of Patient: [facility] TCM Discharge Report Patient discharged from [facility] on 12/21/2024. Admitted for Lactic acidosis. Contact made with patient: No, for Follow-up - end outreach and close encounter. Polly Blanton January 02, 2025 2:24 PM documented in this encounter [facility] 01-02-2025 Telephone encounter Note Study [...] Montalvo January 02, 2025 11:04 AM [facility] 01-02-2025 Miscellaneous Notes Study Title: [...] 11:04 AM documented in this encounter [facility] 01-01-2025 Telephone encounter Note Transitional Care Management (TCM) [facility] Monitoring [facility] Provider Action / FYI: na SUMMARY: Outreach type: INITIAL OUTREACH Discharge Network Status: In-Network Discharge Source of Patient: [facility] TCM Discharge Report Patient discharged from [facility] on 12.21.24. Admitted for Lactic acidosis. . Contact made with patient: No - 2nd unsuccessful attempt - end outreach and close encounter. Sean De La Fuente January 01, 2025 10:37 AM [facility] 01-01-2025 Miscellaneous Notes Transitional Care Management (TCM) [facility] Monitoring [facility] Provider Action / FYI: na SUMMARY: Outreach type: INITIAL OUTREACH Discharge Network Status: In-Network Discharge Source of Patient: [facility] TCM Discharge Report Patient discharged from [facility] on 12.21.24. Admitted for Lactic acidosis. . Contact made with patient: No - 2nd unsuccessful attempt - end outreach and close encounter. Sean De La Fuente January 01, 2025 10:37 AM documented in this encounter [facility] 12-31-2024 History of Present illness [...] a 39 year old single female from [place], [place] ([address], supportive father) with a history of bipolar disorder, severe panic attacks, polysubstance abuse (EtOH, marijuana - sober since at least Apr 2024), violent behavior under influence of EtOH (September 2021), smoking (quit Jul 2024), (2012), preDM, and lap maryellen (2018). She was transferred to [facility] 08/20/24 with a mural thrombus in [...] DC to SNF 09/03/24 and referred to [facility] Medical and Surgical Teams for STEP + Gattex. 10/09/24 OSH Admission for accidental overdose of Methadone at SNF. 10/19/24 OSH Admission for high output stoma. Cdiff negative. Stool for GI panel in process. Remains off TPN. Electrolyte repletion underway. Initial JONATAN Cr >2 has resolved. High stoma output, but it is not measured at the care home. 11/18-11/05/24 OSH Admission for high output [...] stoma and dehydration Presented to the [facility] emergency room with concerns for [...] Partial Omentectom. She was transferred back to [facility]: on SENIOR NETWORK SYSTEMS ENGINEER, with NG tube, with pathak, on continued [...] and examined with Dr. Kirit Devine MD [facility] STAFF PHYSICIAN NOTE OF PERSONAL [...] lagos components of the note. PHYSICAL EXAM: [facility] 08/29/2024 General appearance: well appearing, alert, [...] She has been eating [employer] yesterday and [employer] sausage, egg and cheese for breakfast. She [...] PO TID x 7 days for ASA Sandra Castle PA-C 12/26/2024 documented in this encounter [facility] 12-31-2024 Note [facility] 12-25-2024 Telephone encounter Note Study [...] Discussed care recommendations: Next appointment scheduled: [facility] 12-25-2024 Miscellaneous Notes Study Title: [...] appointment scheduled: documented in this encounter [facility] 12-25-2024 Telephone encounter Note Transitional Care Management (TCM) [facility] Monitoring [facility] Provider Action / FYI: N/A SUMMARY: Outreach type: INITIAL OUTREACH Discharge Network Status: In-Network Discharge Source of Patient: [facility] TCM Discharge Report Patient discharged from [facility] on 12/21/24. Admitted for Lactic acidosis. Contact made with patient: No - next outreach attempt will be on next business day. Suman Guevara RN December 25, 2024 2:27 PM [facility] 12-25-2024 Miscellaneous Notes Transitional Care Management (TCM) [facility] Monitoring [facility] Provider Action / FYI: N/A SUMMARY: Outreach type: INITIAL OUTREACH Discharge Network Status: In-Network Discharge Source of Patient: [facility] TCM Discharge Report Patient discharged from [facility] on 12/21/24. Admitted for Lactic acidosis. Contact made with patient: No - next outreach attempt will be on next business day. Suman Guevara RN December 25, 2024 2:27 PM documented in this encounter [facility] 12-25-2024 Telephone encounter Note Pt [...] Sunday 12/31. Dr. Devine was updated. [facility] 12-25-2024 Miscellaneous Notes Pt was [...] was updated. documented in this encounter [facility] 12-25-2024 History of Present illness [...] PHARMACIST ASSESSMENT/CHECKLIST: -Discharge date: 12/21/24 -Date of [facility] assessment/communication: 12/25/24 -Disposition of the patient at time of assessment? Home -Review study broadcaster (B-38) and nurse navigator (B-41) documentation if [...] in the Hospital: Presented to the [facility] emergency room with concerns for [...] Partial Omentectom. 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 escitalopram oxalate (LEXAPRO) 20 mg [...] 9:10 AM documented in this encounter [facility] 12-25-2024 Note [facility] 12-21-2024 Note [facility] 12-21-2024 Note [facility] 12-21-2024 Note [facility] 12-21-2024 History of Present illness Narrative [facility] Patient education Checklist. Patient Name: Daly Evans MR# [id number] Date: December 21, 2024 10:17 am Performance [...] Pharmacy Nurse documented in this encounter [facility] 12-21-2024 Note [facility] 12-20-2024 Note [facility] 12-20-2024 Note [facility] 12-20-2024 Note [facility] 12-20-2024 History of Present illness Narrative Study Title: Caring for OutPatiEnts aftr Acute Kidney Injury (COPE-JONATAN) Trial IRB:[id number] PI: Dr. Byrd Date: 12/20/2024 Visit: Pre Hospital Discharge Has study broadcaster completed their assessment/guidance for post management: Pending B- Nurse navigator reviewed the plan of management with the study broadcaster to determine: *Follow-up with clinical broadcaster: pending *Follow-up with PCP: Yes-scheduled *What are the targets for BP and volume (weight) management: -BP: 130/80 -Weight: Baseline -Specific management issues study broadcaster is concerned about: Pending Informed the patient of Nurse Navigator Role and Provided NN contact information: Yes Collection of medical care team contacts: PCP: DO Kriss Pruitt study Physician: podiatry - Linda Duval DO and SRIKANTH - Albina Mejia Pharmacy: Study pharmacist Preferred method of communication: Video call NoPhone call: Yes Educational written materials provided: Yes [employer] downloaded & equipment supplied: Yes Patient received training on equipment: Yes Device serial number scale: [id number] Device serial number BP device: [id number] C-24 Labs Collected: blood: No urine: No Contact PCP: pending Next appointment scheduled: 2-3 day visit. Jigna Montalvo December 25, 2024 11:13 AM documented in this encounter [facility] 12-19-2024 Note [facility] 12-19-2024 Note [facility] 12-18-2024 Note [facility] 12-18-2024 Note [facility] 12-17-2024 Note [facility] 12-17-2024 Note [facility] 12-16-2024 Note [facility] 12-16-2024 Note [facility] 12-15-2024 Note [facility] 12-15-2024 Note [facility] 12-14-2024 Note [facility] 12-14-2024 Note [facility] 12-13-2024 Note [facility] 12-13-2024 Telephone encounter Note Message given to Sandra Castle PA-c, inpatient team. [facility] 12-13-2024 Miscellaneous Notes Message given to Sandra Castle PA-c, inpatient team. Ernst called concerning the status of the pt's surgery. Requesting a return call from the warehouse coordinator. Please call Ernst at [phone]. Twila Vargas documented in this encounter [facility] 12-13-2024 Telephone encounter Note Ernst called concerning the status of the pt's surgery. Requesting a return call from the warehouse coordinator. Please call Ernst at [phone]. Twila Vargas [facility] 12-13-2024 Note [facility] 12-12-2024 Note [facility] 12-12-2024 Note [facility] 12-12-2024 Note [facility] 12-12-2024 Note [facility] 12-11-2024 Note [facility] 12-10-2024 Note [facility] 12-09-2024 Note [facility] 12-09-2024 Note [facility] 12-08-2024 Note [facility] 12-07-2024 Note [facility] 12-07-2024 Note [facility] 12-07-2024 Note [facility] 12-06-2024 Note [facility] 12-06-2024 Note [facility] 12-05-2024 Note [facility] 11-28-2024 Telephone encounter Note I [...] the ED as we discussed yesterday. [facility] 11-28-2024 Miscellaneous Notes I called [...] requesting that Libia calls him back at [phone]. Ernst says that Daly is in the emergency room because she is having issues with her ostomy bag. Ernst says that Daly is sweating, dizzy, and in pain. documented in this encounter [facility] 11-28-2024 Telephone encounter Note Enrst (father) called in requesting that Libia calls him back at [phone]. Ernst says that aDly is in the emergency room because she is having issues with her ostomy bag. Ernst says that Daly is sweating, dizzy, and in pain. [facility] Work Phone: 11-27-2024 Telephone encounter Note I returned Daly's call. She was hospitalized again a few days ago. She was given IVF and electrolytes, and then discharged. She has had multiple local hospital admissions for dehydration, high stoma output, and electrolyte imbalance. She has not yet been evaluated by our team, and has decided to come to [facility] ED tomorrow for evaluation and possible admission to the medicine service for stabilization. I told her that I will inform Dr. Devine. I did reach out to Dr. Devine and shared the above. [facility] 11-27-2024 Miscellaneous Notes I returned Daly's call. She was hospitalized again a few days ago. She was given IVF and electrolytes, and then discharged. She has had multiple local hospital admissions for dehydration, high stoma output, and electrolyte imbalance. She has not yet been evaluated by our team, and has decided to come to [facility] ED tomorrow for evaluation and possible admission to the medicine service for stabilization. I told her that I will inform Dr. Devine. I did reach out to Dr. Devine and shared the above. The patient requests a call from Libia.. Gretchen Navarrete documented in this encounter [facility] 11-27-2024 Telephone encounter Note The patient requests a call from Libia.. Gretchen Navarrete [facility] 11-23-2024 Note [facility] 11-16-2024 Note [facility] 11-14-2024 Note [facility] 11-12-2024 Telephone encounter Note I called patient and left a voicemail for her and her father and explained that she should come to the [facility] ED if she is having N, V, high output, or dehydration so that we can evaluate her here and determine what is needed for optimization for surgery. I also explained that the physicians and the hospital she is evaluated at can request transfer to [facility]. [facility] 11-12-2024 Miscellaneous Notes I called patient and left a voicemail for her and her father and explained that she should come to the [facility] ED if she is having N, [...] to reschedule documented in this encounter [facility] 11-12-2024 Telephone encounter Note Patient called in to cancel today's appointment because she going to the Emergency room now and she will call back to reschedule [facility] 11-06-2024 Telephone encounter Note Transitional Care Management (TCM) [facility] Provider Action / FYI: na SUMMARY: Outreach type: INITIAL OUTREACH Discharge Network Status: In-Network Discharge Source of Patient: [facility] TCM Discharge Report Patient discharged from [facility] on 10.26.24. Admitted for Intractable diarrhea . Contact made with patient: No - next outreach attempt will be on next business day. Rico Minor November 06, 2024 4:23 PM [facility] 11-06-2024 Miscellaneous Notes Transitional Care Management (TCM) [facility] Provider Action / FYI: na SUMMARY: Outreach type: INITIAL OUTREACH Discharge Network Status: In-Network Discharge Source of Patient: [facility] TCM Discharge Report Patient discharged from [facility] on 10.26.24. Admitted for Intractable diarrhea . Contact made with patient: No - next outreach attempt will be on next business day. Rico Minor November 06, 2024 4:23 PM documented in this encounter [facility] 11-05-2024 Telephone encounter Note I [...] management CT chest w IV con [facility] 11-05-2024 Miscellaneous Notes I called [...] this request documented in this encounter [facility] 11-05-2024 Telephone encounter Note Patient called in requesting an appointment with Dr. Devine can an order be put in for this request [facility] 11-05-2024 Note [facility] 10-30-2024 Telephone encounter Note Record ID: [id number] Patient name: Daly Evans Date: October 30, [...] you first noticed them? -> Same [facility] 10-30-2024 Miscellaneous Notes Record ID: [id number] Patient name: Daly Evans Date: October 30, [...] -> Same documented in this encounter [facility] 10-26-2024 History of Present illness [...] attend because she is currently admitted to [facility] for diarrhea exacerbation associated with JONATAN, hyponatremia, and hypokalemia. She will be rescheduled. Daly Evans 10/26/2024 documented in this encounter [facility] 10-26-2024 Note HNO ID: [id number] Author: MORENA PALACIOS LSW Service: Care Management Author Type: Leasing Representative Type: Care Mgt Progress Note Filed: 10/26/2024 12:47 Note Text: CARE MANAGEMENT PROGRESS NOTE SERVICE DATE: 10/26/2024 SERVICE TIME: 12:41 PM LOS: 7 days Chart reviewed. Pt admitted from [facility] for intractable diarrhea. She has an ostomy. [...] will discharge to her parents home at: [address] [place], [place]. CHRISTY let Cornelius know this. SIGNATURE: CHANELL Stewart PATIENT NAME: Daly Evans DATE: October 26, 2024 TIME: 12:41 PM [facility] 10-25-2024 Note HNO ID: [id number] Author: WILLIS FINCH DO Service: Hospital Medicine [...] resection with ostomy Patient sent to an [facility] ED due to high output ostomy She had evidence of renal failure as well as multiple electrolyte abnormalities (see below) Gastroenterology is following C. diff negative Stool PCR negative Continue scheduled Imodium 4 mg TID Acute kidney injury Creatinine 2.8 in [facility] ED Likely secondary to GI losses Creatinine now normalized Hyponatremia Sodium 130 in [facility] ED Likely secondary to GI losses Sodium now 135 today Hypokalemia Potassium 3.3 in [facility] ED Likely secondary to GI losses Still 3.4 today Will again supplement Left foot discoloration, ?gangrene Left toes are black, per patient this began while she was at [facility] Chart review indicates she had bilateral lower extremity tibial thromboemboli and underwent thromboembolectomy of the anterior tibial, posterior tibial, and peroneal arteries Podiatry following X-rays obtained on 10/23 showed no evidence of osteomyelitis I spoke with Dr. Mccarthy yesterday, he has no immediate plans for surgical intervention th (more content not included)... [facility] 10-24-2024 Note HNO ID: [id number] Author: WILLIS FINCH DO Service: Hospital Medicine [...] resection with ostomy [facility] due [facility] high output ostomy She had evidence of renal failure as well as multiple electrolyte abnormalities (see below) Gastroenterology is following C. diff negative Stool PCR negative Continue scheduled Imodium 4 mg TID Acute kidney injury Creatinine 2.8 in outlying ED Likely secondary to GI losses Creatinine now normalized Hyponatremia Sodium 130 in outlying ED Likely secondary to GI losses Sodium now 133 today Hypokalemia Potassium 3.3 in outlying ED Likely secondary to GI losses Still 3.4 today Will again supplement Left foot discoloration, ?gangrene Left toes are black, per patient this began while she was at [facility] Chart review indicates she had bilateral lower extremity tibial thromboemboli and underwent thromboembolectomy of the anterior tibial, posterior tibial, and peroneal arteries Podiatry following X-rays obtained yesterday showed no evidence of osteomyelitis I spoke with Dr. Mccarthy today, he has no immediate (more content not included)... [facility] 10-24-2024 Note HNO ID: [id number] Author: MORENA PALACIOS LSW Service: Care Management Author Type: Leasing Representative Type: Care Mgt Progress Note Filed: 10/24/2024 12:21 Note Text: CARE MANAGEMENT PROGRESS NOTE SERVICE DATE: 10/24/2024 SERVICE TIME: 9:36 AM LOS: 5 days Chart reviewed. Pt admitted from [facility] for intractable diarrhea; she has an ostomy. GI consulted for high ostomy output, they signed off yesterday 10/23. Podiatry consulted for left foot discoloration/gangrene. DC plan is to return to [facility] for wound care; precert started today. Post acute checklist on chart, will need wheelchair transport. SIGNATURE: CHANELL Stewart PATIENT NAME: Daly Evans DATE: October 24, 2024 TIME: 9:36 AM [facility] 10-23-2024 Note HNO ID: [id number] Author: WILLIS FINCH DO Service: Hospital Medicine [...] resection with ostomy Patient sent to an [facility] ED due to high output ostomy She had evidence of renal failure as well as multiple electrolyte abnormalities (see below) Gastroenterology is following C. diff negative Stool PCR negative Continue scheduled Imodium, increase today to 4 mg TID Acute kidney injury Creatinine 2.8 in [facility] ED Likely secondary to GI losses Creatinine now normalized Hyponatremia Sodium 130 in [facility] ED Likely secondary to GI losses Sodium now 133 today Hypokalemia Potassium 3.3 in [facility] ED Likely secondary to GI losses Still 3.4 today Will again supplement Left foot discoloration, ?gangrene Left toes are black, per patient this began while she was at [facility] Chart review indicates she had bilateral lower extremity tibial thromboemboli and underwent thromboembolectomy of the anterior tibial, posterior tibial, and peroneal arteries Continue therapeutic Lovenox Podiatry now following X-rays obtained today showed no evidence of osteomyelitis Continue local wound care Chronic comorbidities Bipolar disorder Anxiety Hx of substance abuse SIGNATURE: Willis Finch, (more content not included)... [facility] 10-23-2024 Note HNO ID: [id number] Author: YOHANA MCCARTHY III, DPM Service: Podiatry Author Type: Physician Type: Progress Notes Filed: 10/23/2024 17:49 Note Text: Podiatry Progress Note: X-rays reviewed. No signs of fracture or osteomyelitis or soft tissue gas. Gangrene is dry and stable. Continue wound care. Will follow as outpatient. Yohana Mccarthy III, DPM FACFAS 5:48 PM [facility] 10-22-2024 Note HNO ID: [id number] Author: WILLIS FINCH DO Service: Hospital Medicine [...] resection with ostomy Patient sent to an [facility] ED due to high output ostomy She had evidence of renal failure as well as multiple electrolyte abnormalities (see below) Gastroenterology is following C. diff negative Stool PCR negative Scheduled Imodium started today (2 mg QID) Acute kidney injury Creatinine 2.8 in [facility] ED Likely secondary to GI losses Creatinine now normalized Will stop IV fluids Hyponatremia Sodium 130 in [facility] ED Likely secondary to GI losses Sodium now 136 today Stopping IV fluids Hypokalemia Potassium 3.3 in [facility] ED Likely secondary to GI losses Still 3.2 today Will again supplement Left foot discoloration, ?gangrene Left toes are black, per patient this began while she was at [facility] Chart review indicates she had bilateral lower extremity tibial thromboemboli and underwent thromboembolectomy of the anterior tibial, posterior tibial, and peroneal arteries Continue ther (more content not included)... [facility] 10-22-2024 Note HNO ID: [id number] Author: WILLIS FINCH DO Service: Hospital Medicine Author Type: Physician Type: Progress Notes Filed: 10/22/2024 15:27 Note Text: Documentation Query Please clarify the diagnosis associated with the clinical indicators for this patient Provider Response: Hypokalemia supported by: Oral Supplement of Potassium chloride and IV Infusion of Potassium chloride This document will become part of the patient's medical record. [facility] 10-22-2024 Note HNO ID: [id number] Author: MORENA PALACIOS LSW Service: Care Management Author Type: Leasing Representative Type: Care Mgt Initial Assessment Filed: 10/22/2024 12:51 Note Text: CARE MANAGEMENT: ASSESSMENT AND DISCHARGE PLAN SERVICE DATE: October 22, 2024 SERVICE TIME: 12:43 PM PCP: Fredrick Boland DO Primary Contact: Extended Emergency Contact Information Primary Emergency Contact: Ernst Evans Mobile Relation: Father Secondary Emergency Contact: Mary Evans [facility] Relation: Mother Admission Status: Inpatient Insurance Provider: CARLA MU[employer]OZ MEDICAID Discharge Planning requested by: Potential Transition Plans Advance Directives Current Living Arrangements and Support Lives with: Type of Residence: Support: Current Services/Equipment Discharge Planning Patient Goal(s): [place] Explained: Are you interested in [...] were you homeless or living in a mcfp (including now)?: No Utilities In the past 12 months has the [employer], gas, oil, or water [employer] threatened to shut off services in your home?: No Post-Acute Discharge Plan: Chart reviewed. Pt admitted from [facility] for intractable diarrhea. She has an extensive medical history: [place]: 08/20/2024: Small bowel resection, Ileocecectomy with general surgery. 08/20/24: Bilateral below-knee popliteal cutdown, Thromboembolectomy of AT, PT and peroneal arteries. Primary repair of tibial arteriotomies. Bilateral lower extremity 4 compartment fasciotomies with vascular surgery. 08/22/2024: Second look laparotomy, loop-end jejunosotomy. 08/23/2024: BLE fasciotomy closure. She is currently having high ostomy output. GI consulted. Pt will return to [facility] at discharge. Will need auth to return; she was skilled for wound care. Will need transportation. SIGNATURE: CHANELL Stewart PATIENT NAME: Daly Evans DATE: October 22, 2024 TIME: 12:43 PM [facility] 10-21-2024 Note HNO ID: [id number] Author: WILLIS IFNCH DO Service: Hospital Medicine Author Type: Physician [...] resection with ostomy Patient sent to an [facility] ED due to high output ostomy She had evidence of renal failure as well as multiple electrolyte abnormalities (see below) Gastroenterology is following C. diff negative Stool PCR collected, results pending Antimotility agent being deferred for now until infectious etiology is ruled out Acute kidney injury Creatinine 2.8 in [facility] ED Likely secondary to GI losses Continue IV fluids via lactated Ringer's at 150 cc/hour Creatinine now normalized Hyponatremia Sodium 130 in [facility] ED Likely secondary to GI losses Continue IV fluids as outlined above Sodium now 135 today Hypokalemia Potassium 3.3 in [facility] ED Likely secondary to GI losses Still 2.8 today Will supplement Chronic comorbidities Hx of DVT Bipolar disorder Anxiety Hx of substance abuse SIGNATURE: Willis Finch DO PATIENT NAME: Daly Evans DATE: October 21, 2024 TIME: 11:49 PM [facility] 10-21-2024 Note HNO ID: [id number] Author: TUNG JENNINGS MD Service: Gastroenterology Author [...] October 21, 2024 TIME: 12:09 PM PAGER: [facility] 10-20-2024 Note HNO ID: [id number] Author: WILLIS FINCH DO Service: Hospital Medicine [...] resection with ostomy Patient sent to an [facility] ED due to high output ostomy She had evidence of renal failure as well as multiple electrolyte abnormalities (see below) Gastroenterology is following Stool PCR ordered Antimotility agent being deferred for now until infectious etiology is ruled out Acute kidney injury Creatinine 2.8 in [facility] ED Likely secondary to GI losses Continue IV fluids via lactated Ringer's at 150 cc/hour Hyponatremia Sodium 130 in [facility] ED Likely secondary to GI losses Continue IV fluids as outlined above Hypokalemia Potassium 3.3 in [facility] ED Likely secondary to GI losses Will supplement Chronic comorbidities Hx of DVT Bipolar disorder Anxiety Hx of substance abuse SIGNATURE: Willis Finch DO PATIENT NAME: Daly Evans DATE: October 20, 2024 TIME: 4:15 PM [facility] 10-12-2024 Note HNO ID: [id number] Author: JAKE MORALES RN Service: Care Management Author Type: Registered Nurse Type: Care Mgt Progress Note Filed: 10/12/2024 12:02 Note Text: CARE MANAGEMENT DISCHARGE NOTE SERVICE DATE: October 12, 2024 SERVICE TIME: 11:57 AM Admission Date: 10/09/2024 LOS: 0 days Discharge Arrangement Pt to discharge to [facility] this date at 1200, father to transport pt. Services Arranged [facility]. Provider Name: Dr. Fredrick Boland Caregiver Assessment SNF staff. Transportation Arrangements This RN cancelled transportation setup as pt's father can now transport pt. Handoff Communication: Summary of care sent to PCP and GI. Additional Information: Pt to discharge to [facility] this date at 1200, father to transport pt. No precert or HENS form needed. Discharge packet completed and on chart. Shanta RN called report and placed AVS in discharge packet. This RN sent updates via [employer]. Pt, attending, RN, cheesemaker, and Niki from [facility] notified of and agreeable to discharge plan. LOC SNF. Case closed. Discharge Information Row Name Admission (Current) from 10/09/2024 in [facility] MED[facility]URG [facility] -- Phone# -- SIGNATURE: Jake Morales RN PATIENT NAME: Daly Evans DATE: October 12, 2024 TIME: 11:57 AM [facility] 10-12-2024 Note HNO ID: [id number] Author: SHANTA MIMS RN Service: Nursing Author Type: Registered Nurse Type: Nursing Progress Note Filed: 10/12/2024 10:30 Note Text: Report called to Raisa at [facility]. [facility] 10-11-2024 Note HNO ID: [id number] Author: JAKE MORALES RN Service: Care Management [...] PICC placed for IV access. Pt from [facility]. Pt stated that discharge plan is to [...] of hematemesis before discharging. Current discharge plan [facility]ar[facility]. CM will follow for and assist with transitional discharge needs. Discharge packet on chart. PACF and transportation form completed. Pt will need transportation setup for discharge. Of note, pt admitted at [facility] main 08/20/24 until 09/03/24 for the [...] DATE: October 11, 2024 TIME: 2:19 PM [facility] 10-11-2024 Note HNO ID: [id number] Author: DIANDRA MARTINEZ MD Service: General Internal [...] CHEM: Recent Labs 10/11/24 0451 10/10/24 0527 10/09/241944 NA 136 130* -- K 3.0* 3.4* [...] Component Value Units Date/Time BACTERIAL CULTURE, URINE [[id number]] (Abnormal) Collected: 09/21/24914 Order Status: Completed Specimen: [...] Component Value Units Date/Time BACTERIAL CULTURE, URINE [[id number]] (Abnormal) Collected: 09/21/24914 Order Status: Completed Specimen: [...] Lovenox Hx acute (more content not included)... [facility] 10-10-2024 Note HNO ID: [id number] Author: DIANDRA MARTINEZ MD Service: General Internal [...] injection (PROTONIX) 40 mg INTRAVENOUS BID AC (0600/1599) NaCl 0.9% iv flush bag 20 mL [...] Component Value Units Date/Time BACTERIAL CULTURE, URINE [[id number]] (Abnormal) Collected: 09/21/24 0915 Order Status: Completed [...] Component Value Units Date/Time BACTERIAL CULTURE, URINE [[id number]] (Abnormal) Collected: 09/21/24 0915 Order Status: Completed [...] ordered Hypoglycemia protocol (more content not included)... [facility] 10-10-2024 Note HNO ID: [id number] Author: JAKE MORALES RN Service: Care Management Author Type: Registered Nurse Type: Care Mgt Initial Assessment Filed: 10/10/2024 14:33 Note Text: CARE MANAGEMENT: ASSESSMENT AND DISCHARGE PLAN SERVICE DATE: October 10, 2024 SERVICE TIME: 2:17 PM PCP: Fredrick Boland DO Primary Contact: Extended Emergency Contact Information Primary Emergency Contact: Ernst Evans Mobile Relation: Father Secondary Emergency Contact: Mary Evans [facility] Relation: Mother Admission Status: Observation Insurance Provider: [employer]LA MU[employer]Z MEDICAID Discharge Planning requested by: Per Department Practice Potential Transition Plans To Be Determined Advance Directives Current Advance Directive: None Current Living Arrangements and Support Lives with: (At [facility].) Type of Residence: [facility] Does the patient have to climb stairs at home?: No Care Facility Name: [facility]. Support: Parent, Family members How do you manage to accomplish the following: Independent: Ambulation, Bathe/Shower, Dress, Going to the bathroom Dependent: Meals/Meal Prep, Medication Management, Transportation to appointments/community Current Services/Equipment Current Post-Acute Service(s): None Discharge Planning Patient Goal(s): General wellness [place] Explained: Are you interested in bedside delivery of your medications? No Discharge Planning Participant(s): Patient Patient/Family Comments: Caregiver Assessment: Caregiver is ready, willing and able to meet the patient's needs as recommended by the inter-professional team: (SNF staff.) Transport at Discharge: Transportation Arrangements: To Be Determined Needs Prior to Discharge: Post-Acute Discharge Plan: Pt from [facility]. Pt stated that discharge plan is to return to SNF, this RN requested that [facility] send return referral. Pt denies use [...] transportation setup. Of note, pt admitted at [facility] main 08/20/24 until 09/03/24 for the [...] were you homeless or living in a mcfp (including now)?: No Utilities In the past 12 months has the [employer], gas, oil, or water [employer] threatened to shut off services in your home?: No Social Information Financial Resources: Unemployed SIGNATURE: Jake Morales RN PATIENT NAME: Daly Evans DATE: October 10, 2024 TIME: 2:17 PM [facility] 10-10-2024 Note HNO ID: [id number] Author: CHARLEE GARCIA RN Service: PICC Team Author Type: Registered Nurse Type: Procedures Filed: 10/10/2024 08:37 Note Text: MIDLINE INSERTION PROCEDURE NOTE - PICC TEAM NURSES DATE OF PROCEDURE: 10/10/2024 TIME OF PROCEDURE: 0800 ORDERING PHYSICIAN: Alycia Rawls CNP Indications for line placement: Intravenous access Condition of line placement: Sterile Primary Proceduralist: Shawn Vasquez RN Completions Manager: Charlee Garcia RN Pre-procedure Review: ALLERGIES Allergen [...] with the procedure. Special equipment utilized Site [facility]. Patient/Surrogate Stated/Verified: Patient name, Date of [...] patients). Midline Catheter Placement: Brand: BARD Lot: [id number] Number of lumens: 1 Type of Midline: Power Injectable Midline Lumen size: 3 Kosovan Placement Technique: Lidocaine: Yes, Lidocaine 1% Volume [...] or problems: Call Vascular Access Nurse on [facility] SIGNATURE: Charlee Garcia RN PATIENT NAME: Daly Evans DATE: October 10, 2024 TIME: 8:34 AM PAGER: Call [facility] 10-10-2024 Telephone encounter Note Scheduled. Message left for patient to confirm. Hospital will print at discharge. [facility] Work Phone: 10-10-2024 Miscellaneous Notes Scheduled. Message left for patient to confirm. Hospital will print at discharge. I see she is currently admitted to the hospital for accidental overdose. Please schedule her for follow-up with me after discharge to discuss recent lab work she had done at her initial consultation here. Martín Pendleton DO documented in this encounter [facility] 10-09-2024 Note HNO ID: [id number] Author: LETTY ARAUZ RDMS Service: Radiology Author [...] PATIENT PRESENTS WITH AN IMPLANTABLE OR ATTACHED VENDETTE: No RADIOLOGY DEPARTMENT: Ultrasound PERIPHERAL IV DATA: Not applicable SIGNED BY: Letty Arauz RDMS October 09, 2024 7:05 PM [facility] 10-09-2024 Telephone encounter Note I see she is currently admitted to the hospital for accidental overdose. Please schedule her for follow-up with me after discharge to discuss recent lab work she had done at her initial consultation here. Martín Pendleton DO [facility] Work Phone: 10-08-2024 Telephone encounter Note We were able to complete the virtual education visit as scheduled. [facility] 10-08-2024 Miscellaneous Notes We were [...] this morning his call back number is [phone] documented in this encounter [facility] 10-08-2024 Telephone encounter Note I returned her father's call and got voicemail at the number he asked me to call and left a message. I then tried to call his cell and got voicemail as well and left another message. [facility] 10-08-2024 Telephone encounter Note Patient father called in stated he would like a call back this morning concerning the phone visit scheduled at 10am this morning his call back number is [phone] [facility] 10-08-2024 Telephone encounter Note Images from the original note were not included. [facility] VIRTUAL EDUCATION VISIT REFERRAL: Referring Physician: Dr. Peter Smith ([facility]) Reason for Referral: Surgical rehabilitation Referring Diagnosis: SMA occlusion, disconnected SBS, on TPN HISTORY: Daly Estrella Lover is a 39 year old single female from [place], [place] ([address], supportive father) with a history of bipolar disorder, severe panic attacks, polysubstance abuse (EtOH, marijuana - sober since at least Apr 2024), violent behavior under influence of EtOH (September 2021), smoking (quit Jul 2024), (2012), preDM, and lap maryellen (2018). She was transferred to [facility] 08/20/24 with a mural thrombus in [...] DC to SNF 09/03/24 and referred to [facility] Medical and Surgical Teams for [...] since 08/22/24 stopped approx 10/01/24 at the care home. Tube Feeds: no Height: 172 cm (5' 7.72) Weight: 91.5 kg (201 lb 11.5 oz) on 09/03/24 - BMI 30.9 [facility] Attending Physician manages her TPN. Dr. [...] with labs in A30 at noon. [facility] 10-08-2024 Miscellaneous Notes Images from the original note were not included. [facility] REFERRAL: Referring Physician: Dr. Peter Smith ([facility]) Reason for Referral: Surgical rehabilitation Referring Diagnosis: SMA occlusion, disconnected SBS, on TPN HISTORY: Daly Estrella Lover is a 39 year old single female from [place], [place] ([address], supportive father) with a history of bipolar disorder, severe panic attacks, polysubstance abuse (EtOH, marijuana - sober since at least Apr 2024), violent behavior under influence of EtOH (September 2021), smoking (quit Jul 2024), (2012), preDM, and lap maryellen (2018). She was transferred to [facility] 08/20/24 with a mural thrombus in [...] DC to SNF 09/03/24 and referred to [facility] Medical and Surgical Teams for [...] since 08/22/24 stopped approx 10/01/24 at the care home. Tube Feeds: no Height: 172 cm (5' 7.72) Weight: 91.5 kg (201 lb 11.5 oz) on 09/03/24 - BMI 30.9 [facility] Attending Physician manages her TPN. Dr. [...] in person appointment with Dr. Devine on Kenneth 4/28/25, with labs in A30 at noon. documented in this encounter [facility] 10-03-2024 Telephone encounter Note Faxed. Irma Avila RN [facility] 10-03-2024 Miscellaneous Notes Faxed. Irma Avila RN [facility] called requesting office visit notes from yesterday be faxed to them at [phone] documented in this encounter [facility] 10-03-2024 Telephone encounter Note [facility] Alarcon called requesting office visit notes from yesterday be faxed to them at [phone] [facility] Work Phone: 10-02-2024 History of Present illness Narrative Patient referred by Dr. 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 HPI: The patient is a 39-year-old female with past medical history as outlined below. Presented to the ED at [facility]. 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 Sent to [facility]. Surgical notes reviewed. Heterozygous factor V Leiden. Positive for lupus anticoagulant. JAK2 mutation negative PNH negative. Protein electrophoresis revealed a monoclonal spike quantitated at 0.21 g/dL. No monoclonal protein identified by immunofixation. Both kappa and lambda light chains elevated with an increased ratio of kappa to lambda. Immunoglobulins normal. Beta-2 microglobulin 3.0. Feeling better. At care home. On TPN 12 hours via left arm PICC. Has somewhat of an appetite. Has been eating small amounts. Walking. Still has gilberto in abdominal incision. Tolerating Lovenox injections well. No unusual bleeding or unexplained bruising. PAST MEDICAL HISTORY Diagnosis Date Attempted suicide (HCC) polysubstance Bipolar depression (HCC) [facility] Gestational diabetes mellitus in ([facility]) Impaired fasting blood sugar 06/2015 a1c [...] abdomen is nondistended. Midline incision healing well. [place] in place. Left lower ostomy. Extremities: PICC [...] has follow-up scheduled with vascular medicine at [facility]. - Recheck protein C&S today. - Her weight is 90 kg. Check low molecular weight heparin assay. - Check anticardiolipin and antibeta 2 glycoprotein antibodies today. -Plan on rotating to Coumadin once more stable as outlined above. I spent a total of 60 minutes on the date of the service which included preparing to see the patient, [id number]-[id number] patient care, completing clinical documentation, obtaining and/or reviewing separately obtained history, performing a medically appropriate examination, counseling and educating the patient/family/caregiver, ordering medications, tests, or procedures, communicating with other HCPs (not separately reported), and communicating results to the patient/family/caregiver. Martín Pendleton DO documented in this encounter [facility] 09-27-2024 Note . MICRO - [...] Locations *1: This test was performed at: [facility], [address] [place] [address], [id number] , [facility] 09-27-2024 Note . MICRO - [...] results pending. SUSCEPTIBILITY RESULTS Staphylococcus aureus Antibiotic AURDA Dilut AUDRA Inter Ampicillin >8 Beta Lactamase Positive Ampicillin/ <=8/4 Susceptible Sulbactam Azithromycin <=2 Susceptible Ceftriaxone <=4 Susceptible Ciprofloxacin <=1 Susceptible Clindamycin <=0.25 Susceptible Erythromycin <=0.25 Susceptible ID Panel Not Not Applicable Applicable Levofloxacin <=1 Susceptible Oxacillin <=0.25 Susceptible Penicillin >2 Beta Lactamase Positive Tetracycline <=4 Susceptible Trimethoprim/ <=0.5/9.5 Susceptible Sulfa Vancomycin 0.5 Susceptible Performing Locations *1: This test was performed at: [facility], [address] [place] [address], [facility] , [facility] 09-27-2024 Note . MICRO - [...] Locations *1: This test was performed at: [facility], [address] [place] [address], [facility] , [facility] 09-22-2024 Note . MICRO - [...] Locations *1: This test was performed at: [address], [address]- , [facility] 09-20-2024 Note . MICRO - [...] Locations *1: This test was performed at: [address], [address]- , [facility] 09-19-2024 History of Present illness Narrative Images from the original note were not included. [facility] [employer] DEPARTMENT OF VASCULAR SURGERY OUTPATIENT VISIT DATE [...] Bipolar depression (HCC) [facility] Gestational diabetes [...] sooner if clinically indicated SIGNATURE: Angela Blackwood APRN.JUMBO OPERATOR PATIENT NAME: Daly Evans DATE: September 19, 2024 TIME: 1434 documented in this encounter [facility] 09-17-2024 Note Discharge Instructio ns Discharge Summary [address] [address] [id number] 09/17/2024 Patient: DALY EVANS Sex: Female : 1985 Age: 39y Thank you for visiting [facility]. You have been evaluated today by Donte [...] by patient. Follow-up with: Maggie Putnam MD, [facility], Internal Medicine, Phone: [phone], [address] [place] [address]. Follow up in two days. Reason for referral: evaluation and treatment. Summary of care provided to follow-up provider and patient. Patient Signature 1 of 2 Discharge Instructions Facility Watch Assembler Date/Time General Instructions with ExitWriter [address] [address] [id number] 09/17/2024 Patient: DALY EVANS Sex: Female : 1985 Age: 39y Thank you for visiting [facility]. You have been evaluated today by Donte [...] by patient. Follow-up with: Maggie Putnam MD, [facility], Internal Medicine, Phone: [phone], [address] [id number]. Follow up in two days. Reason for referral: evaluation and treatment. Summary of care provided to follow-up provider and patient. 2 of 2 [facility] 09-12-2024 Telephone encounter Note Called placed to Stefany at the pt's group home facility. Spoke to Stefany and she gave me the patient's room phone number. Tried calling the [phone] (pt's room phone number) but the pt did not answer and I was unable to leave a message. Will try again tomorrow. [facility] 09-12-2024 Miscellaneous Notes Called placed to Stefany at the pt's group home facility. Spoke to Stefany and she gave me the patient's room phone number. Tried calling the [phone] (pt's room phone number) but the pt did not answer and I was unable to leave a message. Will try again tomorrow. documented in this encounter [facility] 09-12-2024 Telephone encounter Note Scheduled with Stefany. [facility] Work Phone: 09-12-2024 Miscellaneous Notes Scheduled with Stefany. 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 Okay to schedule with either physician. Donna Hill LPN Received call from Stefany bazan [facility] stating Dr. Putnam would like patient to be seen by hematology, discharge papers showing blood clots. Patient had been seen at [facility] in vascular. Please advise Stefany at [phone] documented in this encounter [facility] 09-12-2024 Telephone encounter Note DX: Acute phase response (low PC/PS/ATIII, elevated Factor VII, CRP); looks like lupus anticoagulant will be positive (+mix, platelet neutralization, hex phase), aCL and B2GP abs normal PHN, ANDREW-2, UPEP normal SPEP with +M protein Had embolectomy in July. Okay to schedule with either physician. Donna Hill LPN [facility] 09-12-2024 Telephone encounter Note Received call from Stefany bazan [facility] stating Dr. Putnam would like patient to be seen by hematology, discharge papers showing blood clots. Patient had been seen at [facility] in vascular. Please advise Stefany at [phone] [facility] 09-11-2024 Telephone encounter Note Jose Cutler, Looks like this patient was discharged to a facility. Maybe Stefany knows of a way to reach the patient directly? Shi Vargas [facility] 09-11-2024 Miscellaneous Notes Jose Cutler, Looks like this patient was discharged to a facility. Maybe Stefany knows of a way to reach the patient directly? Shi Vargas Stefany from the [facility] is calling in stating that the patients discharge instructions state to consult with the center for gut rehab regarding patients short bowel syndrome. Stefany is asking for a call back at [phone]. documented in this encounter [facility] 09-11-2024 Telephone encounter Note Stefany from the [facility] is calling in stating that the patients discharge instructions state to consult with the center for gut rehab regarding patients short bowel syndrome. Stefany is asking for a call back at [phone]. [facility] 09-10-2024 Telephone encounter Note 2nd call placed, left a vm. Letter sent as well. Will close referral on 09/17 if I do not hear back. [facility] 09-10-2024 Miscellaneous Notes 2nd call placed, left a vm. Letter sent as well. Will close referral on 09/17 if I do not hear back. documented in this encounter [facility] 09-06-2024 Telephone encounter Note Called pt but was unable to leave vm due to vm box full. Tried calling her father Ernst and left him a vm to give our office a call back to begin referral for short bowel. [facility] 09-06-2024 Miscellaneous Notes Called pt but was unable to leave vm due to vm box full. Tried calling her father Ernst and left him a vm to give our office a call back to begin referral for short bowel. documented in this encounter [facility] 09-05-2024 Telephone encounter Note Triage please? Stefany from group home [facility] called for appt for patient with Dr Goncalves.Patient had surgery with Dr Palomares in Jul 2024 please advise? Thanks, [facility] 09-05-2024 Miscellaneous Notes Triage please? Stefany from group home [facility] called for appt for patient with Dr Goncalves.Patient had surgery with Dr Palomares in Jul 2024 please advise? Thanks, Reason for call: Stefany would like to schedule an appointment with Dr Goncalves for f/up Home and cell number [phone] Diagnosis-f/up Kev Cedeno documented in this encounter [facility] 09-05-2024 Telephone encounter Note Reason for call: Stefany would like to schedule an appointment with Dr Goncalves for f/up Home and cell number [phone] Diagnosis-f/up Kev Cedeno [facility] 09-03-2024 Telephone encounter Note Received referral from referral triage for short bowel. Will call the pt for intake once discharged. [facility] 09-03-2024 Miscellaneous Notes Received referral from referral triage for short bowel. Will call the pt for intake once discharged. documented in this encounter [facility] 08-29-2024 Telephone encounter Note Left multiple messages by phone sent my chart message. [facility] 08-29-2024 Telephone encounter Note ----- Message from Xochilt Gaston APRN.JUMBO OPERATOR sent at 08/08/2024 4:07 PM EST ----- Routing information can be restored upon returning to the encounter [facility] 08-29-2024 Miscellaneous Notes Left multiple messages by phone sent my chart message. ----- Message from Xochilt Gaston APRN.JUMBO OPERATOR sent at 08/08/2024 4:07 PM EST ----- Routing information can be restored upon returning to the encounter Line busy will need to try back. ----- Message from Xochilt Gaston APRN.JUMBO OPERATOR sent at 08/08/2024 4:07 PM EST ----- Routing information can be restored upon returning to the encounter Called and left message on patients voicemail to return call to the office and ask to speak with a triage nurse. Lauren Hull MA ----- Message from Xochilt Gaston APRN.JUMBO OPERATOR sent at 08/08/2024 4:07 PM EST ----- [...] diabetes range. No other concerns. Xochilt Gaston APRN.JUMBO OPERATOR documented in this encounter [facility] 08-29-2024 Telephone encounter Note Line busy will need to try back. [facility] 08-29-2024 Telephone encounter Note ----- Message from Xochilt Gaston APRN.JUMBO OPERATOR sent at 08/08/2024 4:07 PM EST ----- Routing information can be restored upon returning to the encounter [facility] 08-20-2024 History of Present illness Narrative Images from the original note were not included. Critical Care Transport Note Patient Name: Daly Evans Service Date: 08/20/24 Referring Physician: Hakeem Referring Facility: [facility] Accepting Physician: David Accepting Facility: [facility] SUBJECTIVE/CHIEF COMPLAINT: abdominal pain, nausea REASON [...] and vit D deficiency. She presented to [facility] early this AM for evaluation of [...] managing the patient requested transfer to the [facility] for tertiary and/or quaternary services unavailable at the referring facility. 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 Air medical transport was requested to reduce the hse-je-fecgywoa time, 19 minutes by air vs. approximately [...] PAST MEDICAL HISTORY Diagnosis Date Attempted suicide ([facility]) polysubstance Bipolar depression ([facility]) [facility] Gestational diabetes mellitus [...] SaO2 >/= 93% - Expedite transport to [facility] for further workup and care The transport was completed without significant incident or change in the patient's status. The patient was transported to the the [facility] by [employer] (Helicopter) for tertiary and/or quaternary evaluation and management of her Emergent Surgical condition(s). Upon arrival to the receiving facility, a telc-bm-gnyv report was given to bedside nursing staff in [facility] and bedside medical team . Patient care [...] pain and the Cardiovascular impairment, Respiratory impairment, DUPLICATOR PUNCH OPERATOR impairment, Shock, Cardiac Arrest, and Severe metabolic abnormality which the patient had and/or had a high probability of suddenly developing. SIGNATURE: Katelyn Villagran APRN.CNP Acute Care Nurse Practitioner [facility] Critical Care Transport Team documented in this encounter [facility] 08-20-2024 Procedure note Procedure(s): ARTERIAL [...] PATIENT NAME: Daly Evans DATE: 08/20/24 [facility] 08-20-2024 Procedure note Procedure(s): ARTERIAL [...] DATE: 08/20/24 documented in this encounter [facility] 08-16-2024 History of Present illness [...] suicide (HCC) polysubstance Bipolar depression (HCC) [facility] Gestational diabetes mellitus [...] 3:37 PM documented in this encounter [facility] 08-10-2024 Telephone encounter Note Called and left message on patients voicemail to return call to the office and ask to speak with a triage nurse. Lauren Hull MA [facility] 08-08-2024 Telephone encounter Note ----- Message from Xochilt Gaston APRN.JUANY sent at 08/08/2024 4:07 PM EST ----- Routing information can be restored upon returning to the encounter [facility] 08-08-2024 Telephone encounter Note Left message to return call Akiko Pettit MA [facility] 08-08-2024 Telephone encounter Note Please let [...] range. No other concerns. Xochilt Gaston APRN.CNP [facility] 08-07-2024 Telephone encounter Note Lexapro and Zyprexa prescription was sent to the patient's pharmacy. [facility] 08-07-2024 Miscellaneous Notes Lexapro and [...] management. Thanks! documented in this encounter [facility] 08-07-2024 Telephone encounter Note Appreciate the update. Glad her EKG was normal and she was able to come in to see you. Will send in her refills. [facility] 08-07-2024 Telephone encounter Note Jose Tipton, We did Daly's EKG today and it looks great, completely normal. She asked me to let you know because you needed it for medication management. Thanks! [facility] 08-07-2024 History of Present illness Narrative [...] Bipolar depression (HCC) [facility] Gestational diabetes [...] Influenza Vaccine(1) due on 02/26/2024 Covid-19 Vaccine( season) Never done DTaP,Tdap,Td Vaccine(2 - Td [...] A1C - COMPREHENSIVE METABOLIC PANEL Xochilt Gaston APRN.JUMBO OPERATOR documented in this encounter [facility] 05-20-2024 Instructions Clayton Granados APRN.JUMBO OPERATOR - 05/20/2024 9:38 PM EST TREATMENT PLAN: Discontinue Lamictal and Trazodone and patient stopped taking them due to reporting lack of efficacy. Complete monitoring lab work and EKG due to the risk of side effects due to manager terminal use of the combination of medication prescribed [...] the National Suicide Prevention Lifeline at 988 (419-150-3237) --text the Crisis Text Line (text HOME to 338607) --call 911 and let them know you are having a mental health crisis or go to your nearest Emergency Room for stabilization. --You can also call Mobile Crisis at [phone]. -- You may call the department appointment line at [phone] to schedule your appointment. -- Please call my nurse at [phone] or send me a message in [employer] with any questions or concerns between appointments. documented in this encounter [facility] 05-18-2024 History of Present illness [...] visit. Either the patient or their legal textile machinery sales representative has been informed of the [...] this at her earliest availability due to alf side effect profile of her current medications. [...] ago. Has not been taking the Lamictal. [place] that she forgot to take it and [...] suicide (HCC) polysubstance Bipolar depression (HCC) [facility] Gestational diabetes mellitus in Impaired [...] the risk of side effects due to manager terminal use of the combination of medication prescribed [...] which included preparing to see the patient, [id number]-[id number] patient care, completing clinical documentation, and counseling and educating the patient/family/caregiver, ordering medications/labs. ADD ON PSYCHOTHERAPY CODE : No SIGNATURE: Clayton Granados APRN.CNP PATIENT NAME: Daly Evans DATE: May 18, 2024 TIME: 2:07 PM documented in this encounter [facility] 03-03-2024 History of Present illness Narrative Patient did not log in for their follow up visit with the provider today. documented in this encounter [facility] 01-30-2024 Telephone encounter Note Tried calling patient no answer or vm available, sent [employer]MT ([employer])t message [facility] 01-30-2024 Miscellaneous Notes Tried calling patient no answer or vm available, sent IMT ([employer])t message documented in this encounter [facility] 01-19-2024 History of Present illness Narrative Patient did not attend her follow up appointment with the provider today. She did not answer her phone when she was contacted prior to the appointment time. It appeared that she had confirmed her appointment today. documented in this encounter [facility] 12-30-2023 History of Present illness Narrative Patient sent a mychart requesting to reschedule the appointment right before the visit. Patient has been assisted in rescheduling this visit. documented in this encounter [facility] 12-12-2023 Telephone encounter Note Prescription [...] MA December 12, 2023 8:34 AM [facility] 12-12-2023 Telephone encounter Note See refill encounter [facility] 12-12-2023 Miscellaneous Notes See refill encounter documented in this encounter [facility] 12-12-2023 Miscellaneous Notes Prescription Refill [...] 2023 8:34 AM [facility]23 Miscellaneous Notes Patient has been identified [...] Baez LPN. documented in this encounter [facility] 09-02-2023 History of Present illness [...] visit. Either the patient or their legal textile machinery sales representative has been informed of the [...] take 3 weeks off her job at [employer]. She is not having any luck in [...] this at her earliest availability due to alf side effect profile of her current medications. [...] which included preparing to see the patient, pfvw-ef-linz patient care, completing clinical documentation, obtaining and/or [...] 10:44 AM documented in this encounter [facility] 05-16-2023 History of Present illness [...] visit. Either the patient or their legal textile machinery sales representative has been informed of the [...] helping in 2 weeks by sending a Viddsee message. 2. Continue the rest of the [...] Would like to get it done after thanks. Looks forward to seeing son and her mother since they have reconciled 3 years. She is looking for a job. Has applied to [employer]. She is worried that the background check [...] suicide (HCC) polysubstance Bipolar depression (HCC) [facility] Camelia Whyte Gestational diabetes mellitus [...] which included preparing to see the patient, ryfl-hn-eozr patient care, completing clinical documentation, obtaining and/or [...] 4:03 PM documented in this encounter [facility] 04-18-2023 History of Present illness [...] visit. Either the patient or their legal textile machinery sales representative has been informed of the [...] [place] [facility]. Would like to do it 3 [...] helping in 2 weeks by sending a Viddsee message. 2. Continue the rest of the [...] which included preparing to see the patient, mvpb-id-dvxa patient care, completing clinical documentation, obtaining and/or reviewing separately obtained history, counseling and educating the patient/family/caregiver, ordering medications, tests, or procedures, and independently interpreting results (not separately reported). ADD ON PSYCHOTHERAPY CODE : No SIGNATURE: Clayton Granados APRN.CNP PATIENT NAME: Daly Evans DATE: April 18, 2023 TIME: 1:04 PM documented in this encounter [facility] 03-15-2023 Miscellaneous Notes Patient has [...] Rand LPN documented in this encounter [facility] 03-14-2023 Instructions Clayton Granados APRN.JUMBO OPERATOR - 03/14/2023 2:00 PM EDT Calixto Kauffman, [...] - Call the National Suicide Hotline at 2-978-OBXBGQS ( ) or 1-364-603-TALK (2260) - Text 6NSRZ to 233602 Medication Update: Lexapro 20 mg - take 2 tablets once daily. Continue the rest of the psychiatric medications at the same dose. Other: Make an appointment to get EKG done. Next appointment: --Schedule in 4 to 6 weeks or sooner if needed -- You may call the department appointment line at [phone] to schedule your appointment. -- Please call my nurse Cassy at [phone] or send me a message in BiometryCloud with any questions or concerns between appointments. documented in this encounter [facility] 03-14-2023 History of Present illness [...] visit. Either the patient or their legal textile machinery sales representative has been informed of the [...] which included preparing to see the patient, tngn-yk-phbk patient care, completing clinical documentation, and counseling and educating the patient/family/caregiver, ordering medications/labs. Clayton Granados APRN.CNP March 14, 2023 1:38 PM This note was partially generated using TranslationExchangeon voice recognition system. Note was reviewed for accuracy. There may be minor misspellings or grammar miscues with Dragon voice recognition. documented in this encounter [facility] 01-05-2023 Miscellaneous Notes Refill sent. Mychart sent. documented in this encounter [facility] 10-28-2022 History of Present illness [...] visit. Either the patient or their legal textile machinery sales representative has been informed of the [...] which included preparing to see the patient, mzol-kf-jidh patient care, completing clinical documentation, and counseling and educating the patient/family/caregiver, ordering medications/labs. Clayton Granados APRN.JUANY October 28, 2022 11:04 AM This note was partially generated using LiveRamp voice recognition system. Note was reviewed for accuracy. There may be minor misspellings or grammar miscues with LiveRamp voice recognition. documented in this encounter [facility] 10-01-2022 Miscellaneous Notes Summary: ECT PA Faxed PA and associated clinicals to [facility] at 1215. Awaiting response documented in this encounter [facility] 09-30-2022 Instructions Esa Guillen APRN.JUANY - 09/30/2022 11:52 AM EDT Calixto Kauffman, We recommend the following adjustments to your medication while getting ECT. Please DO NOT TAKE the following medications on days before an ECT treatment: Lamotrigine These medications have anticonvulsant properties. It will be easier to induce a good seizure when you do not take part of your usual medication dose. Lamotrigine [place] We recommended you do not take lithium [...] the ECT Coordinator at . Esa Guillen APRN.JUANY & Arash Jean Baptiste MD Psychiatric Nurse Practitioner Director of the Electroconvulsive Therapy Service documented in this encounter [facility] 09-30-2022 History and physical note [...] The patient was born and raised in [place]. The patient completed Some college. The patient described their childhood as 'ideal'. The patient lives with a roommate in an house (owned by roommate). Feels safe. No guns The patient has 1 child (10yrs). Shared custody with father. 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 No disability. Service: None Legal: 18 - 2 charges of drug trafficking. No fdc time. No DUI/TRAVON Trauma/Abuse: Denies Psychosocial Supports: [...] psych meds in 2017 2) 2017 @ [place] for SI (pink slipped from crisis line) 3) 2021 - [place] for SI # of past suicide attempts and methods used:OD in 2017 Intensive outpatient program: 2018 at [facility] - didn't think it was helpful Residential treatment: Denies Prior Diagnosis: Anxiety Disorder, Bipolar Affective Disorder, Borderline Personality Disorder, and Panic Disorder Prior Provider: Followed by PCP Fredrick Boland. Referred to current psych provider. Therapist: Followed at [facility] by Evans.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 11/04/2017 documented as of this encounter (statuses as of 07/26/2022) [address]-2018 History of Past illness Narrative* Problem Noted Date Resolved Date 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 Overview: + urine tox on 11/04/2017 documented as of this encounter (statuses as of 08/09/2022) [address]-2018 History of Past illness Narrative* Problem Noted Date Resolved Date 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 Overview: + urine tox on 11/04/2017 documented as of this encounter (statuses as of 08/24/2022) [address]-2018 History of Past illness Narrative* Problem Noted Date Resolved Date 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 Overview: + urine tox on 11/04/2017 documented as of this encounter (statuses as of 09/13/2022) [address]-2018 History of Past illness Narrative* Problem Noted Date Resolved Date 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 Overview: + urine tox on 11/04/2017 documented as of this encounter (statuses as of 09/30/2022) [address]-2018 History of Past illness Narrative* Problem Noted Date Resolved Date 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 Overview: + urine tox on 11/04/2017 documented as of this encounter (statuses as of 10/01/2022) [address]-2018 History of Past illness Narrative* Problem Noted Date Resolved Date 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 Overview: + urine tox on 11/04/2017 documented as of this encounter (statuses as of 10/04/2022) [facility] of Past illness Narrative* Problem Noted Date Resolved Date 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 Overview: + urine tox on 11/04/2017 documented as of this encounter (statuses as of 10/29/2022) [facility] History of Past illness Narrative* Problem Noted Date Resolved Date 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 Overview: + urine tox on 11/04/2017 documented as of this encounter (statuses as of 12/24/2022) [address]-2018 History of Past illness Narrative* Problem Noted Date Diagnosed Date Resolved Date Methamphetamine abuse 11/22/20172018 Overview: + urine tox on 11/04/2017 documented as of this encounter (statuses as of 01/03/2023) [facility] History of Past illness Narrative* Problem Noted Date Diagnosed Date Resolved Date Methamphetamine abuse 11/22/20172018 Overview: + urine tox on 11/04/2017 documented as of this encounter (statuses as of 01/04/2023) [facility] History of Past illness Narrative* Problem Noted Date Diagnosed Date Resolved Date Methamphetamine abuse 11/22/20172018 Overview: + urine tox on 11/04/2017 documented as of this encounter (statuses as of 01/06/2023) [facility] History of Past illness Narrative* Problem Noted Date Diagnosed Date Resolved Date Methamphetamine abuse 11/22/20172018 Overview: + urine tox on 11/04/2017 documented as of this encounter (statuses as of 02/25/2023) [facility] History of Past illness Narrative* Problem Noted Date Diagnosed Date Resolved Date Methamphetamine abuse 11/22/20172018 Overview: + urine tox on 11/04/2017 documented as of this encounter (statuses as of 03/15/2023) [facility] History of Past illness Narrative* Problem Noted Date Diagnosed Date Resolved Date Methamphetamine abuse 11/22/20172018 Overview: + urine tox on 11/04/2017 documented as of this encounter (statuses as of 03/15/2023) [facility] History of Past illness Narrative* Problem Noted Date Diagnosed Date Resolved Date Methamphetamine abuse 11/22/20172018 Overview: + urine tox on 11/04/2017 documented as of this encounter (statuses as of 04/22/2023) [address]-2018 History of Past illness Narrative* Problem Noted Date Diagnosed Date Resolved Date Methamphetamine abuse 11/22/20172018 Overview: + urine tox on 11/04/2017 documented as of this encounter (statuses as of 05/17/2023) [facility] History of Past illness Narrative* Problem Noted Date Diagnosed Date Resolved Date Methamphetamine abuse 11/22/20172018 Overview: + urine tox on 11/04/2017 documented as of this encounter (statuses as of 05/24/2023) [address]-2018 History of Past illness Narrative* Problem Noted Date Diagnosed Date Resolved Date Methamphetamine abuse 11/22/20172018 Overview: + urine tox on 11/04/2017 documented as of this encounter (statuses as of 2023) [facility] History of Past illness Narrative* Problem Noted Date Diagnosed Date Resolved Date Methamphetamine abuse 11/22/20172018 Overview: + urine tox on 11/04/2017 documented as of this encounter (statuses as of 09/28/2023) [facility] Panic attacks Panic disorder without agoraphobia [facility] [place] [facility]* Diagnosis Bipolar affective disorder, current episode mixed, current episode severity unspecified ([facility])- Primary Alcohol abuse Alcohol abuse, unspecified Depressive disorder Depressive disorder, not elsewhere classified Panic attacks Panic disorder without agoraphobia ADD (attention deficit disorder) without hyperactivity Attention deficit disorder without mention of hyperactivity Legal intervention, bystander injured, initial encounter documented in this encounter [facility] note* Diagnosis ELIJAH (generalized anxiety disorder)- Primary Generalized anxiety disorder Bipolar 2 disorder (HCC) Other bipolar disorders [facility] [place] [facility]* Diagnosis ADD (attention deficit disorder) without hyperactivity Attention deficit disorder without mention of hyperactivity [facility] [place] [facility] Diagnosis Iron deficiency anemia, unspecified iron deficiency anemia type [facility] [place] [facility] Diagnosis ELIJAH (generalized anxiety disorder)- Primary Generalized anxiety disorder Bipolar 2 disorder (HCC) Other bipolar disorders [facility] [place] [facility]* Diagnosis ELIJAH (generalized anxiety disorder) Generalized anxiety disorder [facility] [place] [facility] Diagnosis ADD (attention deficit disorder) without hyperactivity Attention deficit disorder without mention of hyperactivity [facility] [place] [facility]* Diagnosis ELIJAH (generalized anxiety disorder)- Primary Generalized anxiety disorder Bipolar 2 disorder (HCC) Other bipolar disorders Panic disorder without agoraphobia [facility] ELIJAH (generalized anxiety disorder) Generalized anxiety disorder [facility] Diagnosis Bipolar 2 disorder (HCC)- Primary Other bipolar disorders Panic disorder without agoraphobia [facility] [place] [facility]* Diagnosis Bilateral hand pain- Primary Pain in limb Foot pain, bilateral Pain in limb Fatigue, unspecified type Myalgia Mylagia and myositis, unspecified Multiple joint pain Pain in joint, multiple sites Iron deficiency Iron deficiency anemia, unspecified [facility] [place] [facility] Diagnosis ELIJAH (generalized anxiety disorder) Generalized anxiety disorder [facility] Diagnosis Panic disorder without agoraphobia- Primary Bipolar 2 disorder (HCC) Other bipolar disorders [facility] [place] [facility] Diagnosis Bilateral hand pain- Primary Pain in limb Elevated C-reactive protein (CRP) Bipolar affective disorder, current episode mixed, current episode severity unspecified ([facility]) documented in this encounter [facility] note* Diagnosis NO SHOW- Primary documented in this encounter [facility] note* Diagnosis Muscle spasm of back Other symptoms referable to back Acute bilateral thoracic back pain [facility] [place] [facility]* Diagnosis Encounter for long-term (current) use of medications- Primary Encounter for long-term (current) use of other medications Panic disorder without agoraphobia Bipolar 2 disorder (HCC) Other bipolar disorders documented in this encounter [facility] note* Diagnosis GERD without esophagitis Esophageal reflux [facility] [place] [facility] Diagnosis Marijuana use- Primary Cannabis abuse, unspecified documented in this encounter [facility] note* Diagnosis Panic disorder without agoraphobia- Primary Bipolar 2 disorder (HCC) Other bipolar disorders Marijuana use Cannabis abuse, unspecified [facility] [place] [facility]* Diagnosis NO SHOW- Primary documented in this encounter [facility] note* Diagnosis Bipolar II disorder (HCC)- Primary Other bipolar disorders documented in this encounter [facility] note* Diagnosis Bipolar 2 disorder (HCC)- Primary Other bipolar disorders Panic disorder without agoraphobia Marijuana use Cannabis abuse, unspecified [facility] [place] [facility] Diagnosis History of marijuana use- Primary Bipolar II disorder (HCC) Other bipolar disorders Panic disorder without agoraphobia documented in this encounter [facility] note* Diagnosis Encounter for long-term (current) use of medications- Primary Encounter for long-term (current) use of other medications ELIJAH (generalized anxiety disorder) Generalized anxiety disorder Panic attacks Panic disorder without agoraphobia Bipolar affective disorder, current episode mixed, current episode severity unspecified (HCC) documented in this encounter [facility] note* Diagnosis ELIJAH (generalized anxiety disorder)- Primary Generalized anxiety disorder Panic attacks Panic disorder without agoraphobia Bipolar II disorder (HCC) Other bipolar disorders Occasional use of marijuana [facility] Diagnosis Encounter for long-term (current) use of medications- Primary Encounter for long-term (current) use of other medications ELIJAH (generalized anxiety disorder) Generalized anxiety disorder Bipolar II disorder (HCC) Other bipolar disorders Panic disorder without agoraphobia documented in this encounter [facility] note* Diagnosis Bipolar II disorder (HCC)- Primary Other bipolar disorders Encounter for long-term (current) use of medications Encounter for long-term (current) use of other medications Panic disorder without agoraphobia History of marijuana use ELIJAH (generalized anxiety disorder) Generalized anxiety disorder [facility] [place] [facility]* Diagnosis GERD without esophagitis Esophageal reflux [facility] [place] [facility]* Diagnosis Encounter for screening mammogram for breast cancer [facility] [place] [facility]* Diagnosis APPOINTMENT CANCELLED- Primary [facility] [place] [facility]* Diagnosis NO SHOW- Primary [facility] [place] [facility]* Diagnosis Acute pain of left knee [facility] [place] [facility]* Diagnosis ELIJAH (generalized anxiety disorder)- Primary Generalized anxiety disorder Marijuana use Cannabis abuse, unspecified Panic attacks Panic disorder without agoraphobia [facility] [place] [facility] Diagnosis ELIJAH (generalized anxiety disorder)- Primary Generalized anxiety disorder Panic attacks Panic disorder without agoraphobia Insomnia due to other mental disorder Bipolar II disorder (HCC) Other bipolar disorders Encounter for long-term (current) use of medications Encounter for long-term (current) use of other medications History of marijuana use Psychosocial stressors Other psychological or physical stress, not elsewhere classified [facility] [place] [facility] Diagnosis Medication management- Primary Encounter for long-term (current) use of other medications Hypokalemia Hypopotassemia Low hemoglobin Anemia, unspecified Anemia, unspecified type Elevated hemoglobin A1c Other abnormal blood chemistry [facility] [place] [facility]* Diagnosis Productive cough- Primary Cough Eczema, unspecified type [facility] [place] [facility]* Diagnosis Anemia, unspecified type- Primary [facility] [place] [facility]* Diagnosis 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 [facility] [place] [facility]* Diagnosis Encounter for post surgical wound check- Primary Encounter for staple removal Encounter for removal of sutures Arterial occlusion Embolism and thrombosis of unspecified artery Acute lower limb ischemia longterm (current) use of aspirin longterm current use of anticoagulant Long-term (current) use of anticoagulants [facility] [facility], [place] [facility]* Diagnosis Aortic thrombus (HCC)- Primary Embolism and thrombosis of thoracic aorta [facility] [place] [facility] Diagnosis Abnormal serum protein electrophoresis- Primary Other nonspecific findings on examination of blood Antiphospholipid antibody syndrome (HCC) Primary hypercoagulable state Superior mesenteric artery thrombosis (HCC) Acute vascular insufficiency of intestine [facility] [place] [facility]* Diagnosis 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 Disorder of artery or arteriole Unspecified disorders of arteries and arterioles [facility] [place] [facility]* Diagnosis On total parenteral nutrition (TPN)- Primary Other specified conditions influencing health status [facility] [place] [facility]* Diagnosis 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 [facility] [place] [facility]* Diagnosis High output ileostomy (HCC)- Primary [...] influencing health status [facility] [place] [facility]* Diagnosis High output ileostomy (HCC)- Primary [...] postprocedural status documented [facility] [place] [facility]* Diagnosis High output ileostomy (HCC)- Primary [...] Other postprocedural status [facility] [place] [facility]* Diagnosis High output ileostomy (HCC)- Primary [...] mental disorder [facility] [place] [facility]* Diagnosis High output ileostomy (HCC)- Primary [...] of anticoagulants [facility] Diagnosis High output ileostomy [...] lower extremity [facility] Diagnosis High output ileostomy [...] vascular catheter [facility] Diagnosis High output ileostomy [...] for disability examination [facility] [place] [facility]* Diagnosis High output ileostomy (HCC)- Primary [...] hyponatremia Hypokalemia Hypopotassemia [facility] [place] [facility]* Diagnosis High output ileostomy (HCC)- Primary [...] of intestines documented [facility] [place] [facility]* Diagnosis High output ileostomy (HCC)- Primary [...] of lower extremity [facility] [place] [facility]* Diagnosis High output ileostomy (HCC)- Primary [...] laterality (HCC)- Primary documented in this encounter [facility] for referral (narrative)* Outpatient Procedure (Routine) - Pending Review Specialty Diagnoses / Procedures Referred By Contac t Referred To Contact [facility] Diagnoses ELIJAH (generalized anxiety disorder) Procedures ECG COMPLETE ECG ROUTINE ECG W/LEAST 12 LDS W/I&R Clayton Granados APRN.JUMBO OPERATOR [address] [place] [address] [facility] [employer] [address] [place] [address] Referral ID Status Reason Start Date Expiration Date Visits Requested Visits Authorized [id number] Pending Review Auto-Generat ed Referral 12/24/2021 12/24/2022 1 1 [facility] for referral (narrative)* Diagnostic Procedure Only (Routine) - Pending Review Specialty Diagnoses / Procedures Referred By Contac t Referred To Contact XR IMAGING Diagnoses Foot pain, bilateral Procedures XR FOOT GENERAL 3V AP/LAT/OBL BILATERAL RADEX FOOT COMPLETE MINIMUM 3 VIEWS Fredrick Boland DO [address] [place] [address] [facility] Referral ID Status Reason Start Date Expiration Date Visits Requested Visits Authorized [id number] Pending Review Auto-Generat ed Referral 02/02/2022 03/04/2023 1 1 * Diagnostic Procedure Only (Routine) - Pending Review Specialty Diagnoses / Procedures Referred By Contac t Referred To Contact XR IMAGING Diagnoses Bilateral hand pain Procedures XR HAND GENERAL 3V PA/LAT/OBL BILATERAL RADEX HAND MINIMUM 3 VIEWS Fredrick Boland, DO [address] [place] [address] [facility] Referral ID Status Reason Start Date Expiration Date Visits Requested Visits Authorized [id number] Pending Review Auto-Generat ed Referral 02/02/2022 03/04/2023 1 1 [facility] for referral (narrative)* Outpatient Procedure (Routine) - Pending Review Specialty Diagnoses / Procedures Referred By Contac t Referred To [facility] Diagnoses Encounter for long-term (current) use of medications Procedures ECG COMPLETE ECG ROUTINE ECG W/LEAST 12 LDS W/I&R Clayton Granados, SALES ENGINEER ACCOUNT MANAGER.JUMBO OPERATOR [address] [place] [address] [facility] [employer] [address] [place] [address] Referral ID Status Reason Start Date Expiration Date Visits Requested Visits Authorized [id number] Pending Review Auto-Generat ed Referral 03/14/2023 03/13/2024 1 1 [facility] for referral (narrative)* Diagnostic Procedure Only (Routine) - Pending Review Specialty Diagnoses / Procedures Referred By Contac t Referred To Contact BR IMAGING Diagnoses Encounter for screening mammogram for breast cancer Procedures MILO SCREENING SCREENING MAMMOGRAPHY BI 2-VIEW BREAST INC CAD Fredrick Boland DO [address] [place] [address] [facility] [address] [place] [address] Referral ID Status Reason Start Date Expiration Date Visits Requested Visits Authorized [id number] Pending Review Auto-Generat ed Referral 10/19/2023 11/17/2024 1 1 [facility] for referral (narrative)* Diagnostic Procedure Only (Routine) - Closed Specialty Diagnoses / Procedures Referred By Contac t Referred To Contact XR IMAGING Diagnoses Acute pain of left knee Procedures XR KNEE GENERAL 4V AP BOTH/PA BOTH/LAT/MERC LT KNEE AP-WGT/LAT/MERCHANT Herbert Izquierdo MD [address] [place] [address] [place] [address] Referral ID Status Reason Start Date Expiration Date V isits Requested Visits Authorized Closed Auto-Generate d Referral 03/12/2021 04/11/2022 1 1 [facility] for referral (narrative)* Outpatient Procedure (Routine) - New Request Specialty Diagnoses / Procedures Referred By Matias vaughan Referred To Contact [facility] [place] Diagnoses Encounter for long-term (current) use of medications Procedures ECG COMPLETE ECG ROUTINE ECG W/LEAST 12 LDS W/I&R Clayton Granados, SALES ENGINEER ACCOUNT MANAGER.JUMBO OPERATOR [address] [place] [address] [facility] [employer] [address] [place] [address] Referral ID Status Reason Start Date Expiration Date Visits Requested Visits Authorized [id number] New Request Auto-Generat ed Referral 4 05/18/2025 1 1 Electronically signed by Clayton Granados SALES ENGINEER ACCOUNT MANAGER.JUMBO OPERATOR at 05/18/2024 2:31 PM EST [facility] for visit Narrative* Diagnostic Procedure Only (Routine) - Closed Specialty Diagnoses / Procedures Referred By Matias vaughan Referred To Contact XR IMAGING Diagnoses Acute pain of left knee Procedures XR KNEE GENERAL 4V AP BOTH/PA BOTH/LAT/MERC LT KNEE AP-WGT/LAT/MERCHANT Herbert Izquierdo MD [address] [place] [address] [place] [address] Referral ID Status Reason Start Date Expiration Date V isits Requested Visits Authorized Closed Auto-Generate d Referral 03/12/2021 04/11/2022 1 1 [facility] Summary Purpose Family History No [...] Documents on File Type Date Recorded Patient Watch Assembler Expl anation Advance Directive(s) 10/10/2021 1:22 AM Documents on File Type Date Recorded Patient Watch Assembler Expl anation Advance Directive(s) 10/10/2021 1:22 AM [...] section and content) DATE CREATED AUTHOR 01/07/2018 [facility] DATE CREATED AUTHOR AUTHOR'S ORGANIZ ATION 06/13/2018 [facility] DATE CREATED AUTHOR AUTHOR'S ORGANIZ ATION 05/30/2021 [facility] DATE CREATED AUTHOR AUTHOR'S ORGANIZ ATION 10/07/2022 [facility] DATE CREATED AUTHOR AUTHOR'S ORGANIZ ATION 10/07/2022 [facility] DATE CREATED AUTHOR AUTHOR'S ORGANIZ ATION 12/08/2022 [facility] DATE CREATED AUTHOR AUTHOR'S ORGANIZ ATION 09/30/2024 [facility] DATE CREATED AUTHOR AUTHOR'S ORGANIZ ATION 10/30/2024 [facility] DATE CREATED AUTHOR AUTHOR'S ORGANIZ ATION 11/04/2024 [facility] DATE CREATED AUTHOR AUTHOR'S ORGANIZ ATION 03/29/2025 [facility] DATE CREATED AUTHOR AUTHOR'S ORGANIZ ATION 04/23/2025 [facility] DATE CREATED AUTHOR AUTHOR'S ORGANIZ ATION 05/03/2025 [facility] DATE CREATED AUTHOR AUTHOR'S ORGANIZ ATION 05/08/2025 [facility] Source Comments (unrecognize d section and content) In the event this informatio n is protected by the Federal Confidentiality of Alcohol and Drug Abuse Patient Records regulations: The Federal rules restrict any use of the information to criminally investigate or prosecute any alcohol or drug abuse patient.[facility] the event this information is protected by the Federal Confidentiality of Alcohol and Drug Abuse Patient Records regulations: The Federal rules restrict any use of the information to criminally investigate or prosecute any alcohol or drug abuse patient.[facility] the event this information is protected by the Federal Confidentiality of Alcohol and Drug Abuse Patient Records regulations: The Federal rules restrict any use of the information to criminally investigate or prosecute any alcohol or drug abuse patient.[facility] the event this information is protected by the Federal Confidentiality of Alcohol and Drug Abuse Patient Records regulations: The Federal rules restrict any use of the information to criminally investigate or prosecute any alcohol or drug abuse patient.[facility] the event this information is protected by the Federal Confidentiality of Alcohol and Drug Abuse Patient Records regulations: The Federal rules restrict any use of the information to criminally investigate or prosecute any alcohol or drug abuse patient.[facility] the event this information is protected by the Federal Confidentiality of Alcohol and Drug Abuse Patient Records regulations: The Federal rules restrict any use of the information to criminally investigate or prosecute any alcohol or drug abuse patient.[facility] Center[facility] the event this information is protected by the Federal Confidentiality of Alcohol and Drug Abuse Patient Records regulations: The Federal rules restrict any use of the information to criminally investigate or prosecute any alcohol or drug abuse patient.[facility] the event this information is protected by the Federal Confidentiality of Alcohol and Drug Abuse Patient Records regulations: The Federal rules restrict any use of the information to criminally investigate or prosecute any alcohol or drug abuse patient.[facility] Center[facility] the event this information is protected by the Federal Confidentiality of Alcohol and Drug Abuse Patient Records regulations: The Federal rules restrict any use of the information to criminally investigate or prosecute any alcohol or drug abuse patient.[facility] Center[facility] the event this information is protected by the Federal Confidentiality of Alcohol and Drug Abuse Patient Records regulations: The Federal rules restrict any use of the information to criminally investigate or prosecute any alcohol or drug abuse patient.[facility] Center[facility] the event this information is protected by the Federal Confidentiality of Alcohol and Drug Abuse Patient Records regulations: The Federal rules restrict any use of the information to criminally investigate or prosecute any alcohol or drug abuse patient.[facility] CenterIn the event this information is protected by the Federal Confidentiality of Alcohol and Drug Abuse Patient Records regulations: The Federal rules restrict any use of the information to criminally investigate or prosecute any alcohol or drug abuse patient.[facility] CenterIn the event this information is protected by the Federal Confidentiality of Alcohol and Drug Abuse Patient Records regulations: The Federal rules restrict any use of the information to criminally investigate or prosecute any alcohol or drug abuse patient.[facility] CenterIn the event this information is protected by the Federal Confidentiality of Alcohol and Drug Abuse Patient Records regulations: The Federal rules restrict any use of the information to criminally investigate or prosecute any alcohol or drug abuse patient.[facility] CenterIn the event this information is protected by the Federal Confidentiality of Alcohol and Drug Abuse Patient Records regulations: The Federal rules restrict any use of the information to criminally investigate or prosecute any alcohol or drug abuse patient.[facility] CenterIn the event this information is protected by the Federal Confidentiality of Alcohol and Drug Abuse Patient Records regulations: The Federal rules restrict any use of the information to criminally investigate or prosecute any alcohol or drug abuse patient.[facility] CenterIn the event this information is protected by the Federal Confidentiality of Alcohol and Drug Abuse Patient Records regulations: The Federal rules restrict any use of the information to criminally investigate or prosecute any alcohol or drug abuse patient.[facility] CenterIn the event this information is protected by the Federal Confidentiality of Alcohol and Drug Abuse Patient Records regulations: The Federal rules restrict any use of the information to criminally investigate or prosecute any alcohol or drug abuse patient.[facility] CenterIn the event this information is protected by the Federal Confidentiality of Alcohol and Drug Abuse Patient Records regulations: The Federal rules restrict any use of the information to criminally investigate or prosecute any alcohol or drug abuse patient.[facility] CenterIn the event this information is protected by the Federal Confidentiality of Alcohol and Drug Abuse Patient Records regulations: The Federal rules restrict any use of the information to criminally investigate or prosecute any alcohol or drug abuse patient.[facility] CenterIn the event this information is protected by the Federal Confidentiality of Alcohol and Drug Abuse Patient Records regulations: The Federal rules restrict any use of the information to criminally investigate or prosecute any alcohol or drug abuse patient.[facility] CenterIn the event this information is protected by the Federal Confidentiality of Alcohol and Drug Abuse Patient Records regulations: The Federal rules restrict any use of the information to criminally investigate or prosecute any alcohol or drug abuse patient.[facility] CenterIn the event this information is protected by the Federal Confidentiality of Alcohol and Drug Abuse Patient Records regulations: The Federal rules restrict any use of the information to criminally investigate or prosecute any alcohol or drug abuse patient.[facility] CenterIn the event this information is protected by the Federal Confidentiality of Alcohol and Drug Abuse Patient Records regulations: The Federal rules restrict any use of the information to criminally investigate or prosecute any alcohol or drug abuse patient.[facility]In the event this information is protected by the Federal Confidentiality of Alcohol and Drug Abuse Patient Records regulations: The Federal rules restrict any use of the information to criminally investigate or prosecute any alcohol or drug abuse patient.[facility] CenterIn the event this information is protected by the Federal Confidentiality of Alcohol and Drug Abuse Patient Records regulations: The Federal rules restrict any use of the information to criminally investigate or prosecute any alcohol or drug abuse patient.[facility] CenterIn the event this information is protected by the Federal Confidentiality of Alcohol and Drug Abuse Patient Records regulations: The Federal rules restrict any use of the information to criminally investigate or prosecute any alcohol or drug abuse patient.[facility] CenterIn the event this information is protected by the Federal Confidentiality of Alcohol and Drug Abuse Patient Records regulations: The Federal rules restrict any use of the information to criminally investigate or prosecute any alcohol or drug abuse patient.[facility] CenterIn the event this information is protected by the Federal Confidentiality of Alcohol and Drug Abuse Patient Records regulations: The Federal rules restrict any use of the information to criminally investigate or prosecute any alcohol or drug abuse patient.[facility] CenterIn the event this information is protected by the Federal Confidentiality of Alcohol and Drug Abuse Patient Records regulations: The Federal rules restrict any use of the information to criminally investigate or prosecute any alcohol or drug abuse patient.[facility] CenterIn the event this information is protected by the Federal Confidentiality of Alcohol and Drug Abuse Patient Records regulations: The Federal rules restrict any use of the information to criminally investigate or prosecute any alcohol or drug abuse patient.[facility] CenterIn the event this information is protected by the Federal Confidentiality of Alcohol and Drug Abuse Patient Records regulations: The Federal rules restrict any use of the information to criminally investigate or prosecute any alcohol or drug abuse patient.[facility] CenterIn the event this information is protected by the Federal Confidentiality of Alcohol and Drug Abuse Patient Records regulations: The Federal rules restrict any use of the information to criminally investigate or prosecute any alcohol or drug abuse patient.[facility] CenterIn the event this information is protected by the Federal Confidentiality of Alcohol and Drug Abuse Patient Records regulations: The Federal rules restrict any use of the information to criminally investigate or prosecute any alcohol or drug abuse patient.[facility] CenterIn the event this information is protected by the Federal Confidentiality of Alcohol and Drug Abuse Patient Records regulations: The Federal rules restrict any use of the information to criminally investigate or prosecute any alcohol or drug abuse patient.[facility] CenterIn the event this information is protected by the Federal Confidentiality of Alcohol and Drug Abuse Patient Records regulations: The Federal rules restrict any use of the information to criminally investigate or prosecute any alcohol or drug abuse patient.[facility] CenterIn the event this information is protected by the Federal Confidentiality of Alcohol and Drug Abuse Patient Records regulations: The Federal rules restrict any use of the information to criminally investigate or prosecute any alcohol or drug abuse patient.[facility] CenterIn the event this information is protected by the Federal Confidentiality of Alcohol and Drug Abuse Patient Records regulations: The Federal rules restrict any use of the information to criminally investigate or prosecute any alcohol or drug abuse patient.[facility] CenterIn the event this information is protected by the Federal Confidentiality of Alcohol and Drug Abuse Patient Records regulations: The Federal rules restrict any use of the information to criminally investigate or prosecute any alcohol or drug abuse patient.[facility] CenterIn the event this information is protected by the Federal Confidentiality of Alcohol and Drug Abuse Patient Records regulations: The Federal rules restrict any use of the information to criminally investigate or prosecute any alcohol or drug abuse patient.[facility] CenterIn the event this information is protected by the Federal Confidentiality of Alcohol and Drug Abuse Patient Records regulations: The Federal rules restrict any use of the information to criminally investigate or prosecute any alcohol or drug abuse patient.[facility] CenterIn the event this information is protected by the Federal Confidentiality of Alcohol and Drug Abuse Patient Records regulations: The Federal rules restrict any use of the information to criminally investigate or prosecute any alcohol or drug abuse patient.[facility] CenterIn the event this information is protected by the Federal Confidentiality of Alcohol and Drug Abuse Patient Records regulations: The Federal rules restrict any use of the information to criminally investigate or prosecute any alcohol or drug abuse patient.[facility] CenterIn the event this information is protected by the Federal Confidentiality of Alcohol and Drug Abuse Patient Records regulations: The Federal rules restrict any use of the information to criminally investigate or prosecute any alcohol or drug abuse patient.[facility] CenterIn the event this information is protected by the Federal Confidentiality of Alcohol and Drug Abuse Patient Records regulations: The Federal rules restrict any use of the information to criminally investigate or prosecute any alcohol or drug abuse patient.[facility] CenterIn the event this information is protected by the Federal Confidentiality of Alcohol and Drug Abuse Patient Records regulations: The Federal rules restrict any use of the information to criminally investigate or prosecute any alcohol or drug abuse patient.[facility] CenterIn the event this information is protected by the Federal Confidentiality of Alcohol and Drug Abuse Patient Records regulations: The Federal rules restrict any use of the information to criminally investigate or prosecute any alcohol or drug abuse patient.[facility] CenterIn the event this information is protected by the Federal Confidentiality of Alcohol and Drug Abuse Patient Records regulations: The Federal rules restrict any use of the information to criminally investigate or prosecute any alcohol or drug abuse patient.[facility] CenterIn the event this information is protected by the Federal Confidentiality of Alcohol and Drug Abuse Patient Records regulations: The Federal rules restrict any use of the information to criminally investigate or prosecute any alcohol or drug abuse patient.[facility] CenterIn the event this information is protected by the Federal Confidentiality of Alcohol and Drug Abuse Patient Records regulations: The Federal rules restrict any use of the information to criminally investigate or prosecute any alcohol or drug abuse patient.[facility] CenterIn the event this information is protected by the Federal Confidentiality of Alcohol and Drug Abuse Patient Records regulations: The Federal rules restrict any use of the information to criminally investigate or prosecute any alcohol or drug abuse patient.[facility] CenterIn the event this information is protected by the Federal Confidentiality of Alcohol and Drug Abuse Patient Records regulations: The Federal rules restrict any use of the information to criminally investigate or prosecute any alcohol or drug abuse patient.[facility] CenterIn the event this information is protected by the Federal Confidentiality of Alcohol and Drug Abuse Patient Records regulations: The Federal rules restrict any use of the information to criminally investigate or prosecute any alcohol or drug abuse patient.[facility] CenterIn the event this information is protected by the Federal Confidentiality of Alcohol and Drug Abuse Patient Records regulations: The Federal rules restrict any use of the information to criminally investigate or prosecute any alcohol or drug abuse patient.[facility] CenterIn the event this information is protected by the Federal Confidentiality of Alcohol and Drug Abuse Patient Records regulations: The Federal rules restrict any use of the information to criminally investigate or prosecute any alcohol or drug abuse patient.[facility] CenterIn the event this information is protected by the Federal Confidentiality of Alcohol and Drug Abuse Patient Records regulations: The Federal rules restrict any use of the information to criminally investigate or prosecute any alcohol or drug abuse patient.[facility] CenterIn the event this information is protected by the Federal Confidentiality of Alcohol and Drug Abuse Patient Records regulations: The Federal rules restrict any use of the information to criminally investigate or prosecute any alcohol or drug abuse patient.[facility] CenterIn the event this information is protected by the Federal Confidentiality of Alcohol and Drug Abuse Patient Records regulations: The Federal rules restrict any use of the information to criminally investigate or prosecute any alcohol or drug abuse patient.[facility] CenterIn the event this information is protected by the Federal Confidentiality of Alcohol and Drug Abuse Patient Records regulations: The Federal rules restrict any use of the information to criminally investigate or prosecute any alcohol or drug abuse patient.[facility] CenterIn the event this information is protected by the Federal Confidentiality of Alcohol and Drug Abuse Patient Records regulations: The Federal rules restrict any use of the information to criminally investigate or prosecute any alcohol or drug abuse patient.[facility] CenterIn the event this information is protected by the Federal Confidentiality of Alcohol and Drug Abuse Patient Records regulations: The Federal rules restrict any use of the information to criminally investigate or prosecute any alcohol or drug abuse patient.[facility] CenterIn the event this information is protected by the Federal Confidentiality of Alcohol and Drug Abuse Patient Records regulations: The Federal rules restrict any use of the information to criminally investigate or prosecute any alcohol or drug abuse patient.[facility] CenterIn the event this information is protected by the Federal Confidentiality of Alcohol and Drug Abuse Patient Records regulations: The Federal rules restrict any use of the information to criminally investigate or prosecute any alcohol or drug abuse patient.[facility] CenterIn the event this information is protected by the Federal Confidentiality of Alcohol and Drug Abuse Patient Records regulations: The Federal rules restrict any use of the information to criminally investigate or prosecute any alcohol or drug abuse patient.[facility] CenterIn the event this information is protected by the Federal Confidentiality of Alcohol and Drug Abuse Patient Records regulations: The Federal rules restrict any use of the information to criminally investigate or prosecute any alcohol or drug abuse patient.[facility] CenterIn the event this information is protected by the Federal Confidentiality of Alcohol and Drug Abuse Patient Records regulations: The Federal rules restrict any use of the information to criminally investigate or prosecute any alcohol or drug abuse patient.[facility] CenterIn the event this information is protected by the Federal Confidentiality of Alcohol and Drug Abuse Patient Records regulations: The Federal rules restrict any use of the information to criminally investigate or prosecute any alcohol or drug abuse patient.[facility] CenterIn the event this information is protected by the Federal Confidentiality of Alcohol and Drug Abuse Patient Records regulations: The Federal rules restrict any use of the information to criminally investigate or prosecute any alcohol or drug abuse patient.[facility] CenterIn the event this information is protected by the Federal Confidentiality of Alcohol and Drug Abuse Patient Records regulations: The Federal rules restrict any use of the information to criminally investigate or prosecute any alcohol or drug abuse patient.[facility] CenterIn the event this information is protected by the Federal Confidentiality of Alcohol and Drug Abuse Patient Records regulations: The Federal rules restrict any use of the information to criminally investigate or prosecute any alcohol or drug abuse patient.[facility] CenterIn the event this information is protected by the Federal Confidentiality of Alcohol and Drug Abuse Patient Records regulations: The Federal rules restrict any use of the information to criminally investigate or prosecute any alcohol or drug abuse patient.[facility] CenterIn the event this information is protected by the Federal Confidentiality of Alcohol and Drug Abuse Patient Records regulations: The Federal rules restrict any use of the information to criminally investigate or prosecute any alcohol or drug abuse patient.[facility] CenterIn the event this information is protected by the Federal Confidentiality of Alcohol and Drug Abuse Patient Records regulations: The Federal rules restrict any use of the information to criminally investigate or prosecute any alcohol or drug abuse patient.[facility] CenterIn the event this information is protected by the Federal Confidentiality of Alcohol and Drug Abuse Patient Records regulations: The Federal rules restrict any use of the information to criminally investigate or prosecute any alcohol or drug abuse patient.[facility] CenterIn the event this information is protected by the Federal Confidentiality of Alcohol and Drug Abuse Patient Records regulations: The Federal rules restrict any use of the information to criminally investigate or prosecute any alcohol or drug abuse patient.[facility] CenterIn the event this information is protected by the Federal Confidentiality of Alcohol and Drug Abuse Patient Records regulations: The Federal rules restrict any use of the information to criminally investigate or prosecute any alcohol or drug abuse patient.[facility] CenterIn the event this information is protected by the Federal Confidentiality of Alcohol and Drug Abuse Patient Records regulations: The Federal rules restrict any use of the information to criminally investigate or prosecute any alcohol or drug abuse patient.[facility] CenterIn the event this information is protected by the Federal Confidentiality of Alcohol and Drug Abuse Patient Records regulations: The Federal rules restrict any use of the information to criminally investigate or prosecute any alcohol or drug abuse patient.[facility] CenterIn the event this information is protected by the Federal Confidentiality of Alcohol and Drug Abuse Patient Records regulations: The Federal rules restrict any use of the information to criminally investigate or prosecute any alcohol or drug abuse patient.[facility] CenterIn the event this information is protected by the Federal Confidentiality of Alcohol and Drug Abuse Patient Records regulations: The Federal rules restrict any use of the information to criminally investigate or prosecute any alcohol or drug abuse patient.[facility] CenterIn the event this information is protected by the Federal Confidentiality of Alcohol and Drug Abuse Patient Records regulations: The Federal rules restrict any use of the information to criminally investigate or prosecute any alcohol or drug abuse patient.[facility] CenterIn the event this information is protected by the Federal Confidentiality of Alcohol and Drug Abuse Patient Records regulations: The Federal rules restrict any use of the information to criminally investigate or prosecute any alcohol or drug abuse patient.[facility] CenterIn the event this information is protected by the Federal Confidentiality of Alcohol and Drug Abuse Patient Records regulations: The Federal rules restrict any use of the information to criminally investigate or prosecute any alcohol or drug abuse patient.[facility] CenterIn the event this information is protected by the Federal Confidentiality of Alcohol and Drug Abuse Patient Records regulations: The Federal rules restrict any use of the information to criminally investigate or prosecute any alcohol or drug abuse patient.[facility] CenterIn the event this information is protected by the Federal Confidentiality of Alcohol and Drug Abuse Patient Records regulations: The Federal rules restrict any use of the information to criminally investigate or prosecute any alcohol or drug abuse patient.[facility] CenterIn the event this information is protected by the Federal Confidentiality of Alcohol and Drug Abuse Patient Records regulations: The Federal rules restrict any use of the information to criminally investigate or prosecute any alcohol or drug abuse patient.[facility] CenterIn the event this information is protected by the Federal Confidentiality of Alcohol and Drug Abuse Patient Records regulations: The Federal rules restrict any use of the information to criminally investigate or prosecute any alcohol or drug abuse patient.[facility] CenterIn the event this information is protected by the Federal Confidentiality of Alcohol and Drug Abuse Patient Records regulations: The Federal rules restrict any use of the information to criminally investigate or prosecute any alcohol or drug abuse patient.[facility] CenterIn the event this information is protected by the Federal Confidentiality of Alcohol and Drug Abuse Patient Records regulations: The Federal rules restrict any use of the information to criminally investigate or prosecute any alcohol or drug abuse patient.[facility] CenterIn the event this information is protected by the Federal Confidentiality of Alcohol and Drug Abuse Patient Records regulations: The Federal rules restrict any use of the information to criminally investigate or prosecute any alcohol or drug abuse patient.[facility] CenterIn the event this information is protected by the Federal Confidentiality of Alcohol and Drug Abuse Patient Records regulations: The Federal rules restrict any use of the information to criminally investigate or prosecute any alcohol or drug abuse patient.[facility] CenterIn the event this information is protected by the Federal Confidentiality of Alcohol and Drug Abuse Patient Records regulations: The Federal rules restrict any use of the information to criminally investigate or prosecute any alcohol or drug abuse patient.[facility] CenterIn the event this information is protected by the Federal Confidentiality of Alcohol and Drug Abuse Patient Records regulations: The Federal rules restrict any use of the information to criminally investigate or prosecute any alcohol or drug abuse patient.[facility] CenterIn the event this information is protected by the Federal Confidentiality of Alcohol and Drug Abuse Patient Records regulations: The Federal rules restrict any use of the information to criminally investigate or prosecute any alcohol or drug abuse patient.[facility] CenterIn the event this information is protected by the Federal Confidentiality of Alcohol and Drug Abuse Patient Records regulations: The Federal rules restrict any use of the information to criminally investigate or prosecute any alcohol or drug abuse patient.[facility] CenterIn the event this information is protected by the Federal Confidentiality of Alcohol and Drug Abuse Patient Records regulations: The Federal rules restrict any use of the information to criminally investigate or prosecute any alcohol or drug abuse patient.[facility] CenterIn the event this information is protected by the Federal Confidentiality of Alcohol and Drug Abuse Patient Records regulations: The Federal rules restrict any use of the information to criminally investigate or prosecute any alcohol or drug abuse patient.[facility] CenterIn the event this information is protected by the Federal Confidentiality of Alcohol and Drug Abuse Patient Records regulations: The Federal rules restrict any use of the information to criminally investigate or prosecute any alcohol or drug abuse patient.[facility] CenterIn the event this information is protected by the Federal Confidentiality of Alcohol and Drug Abuse Patient Records regulations: The Federal rules restrict any use of the information to criminally investigate or prosecute any alcohol or drug abuse patient.[facility] CenterIn the event this information is protected by the Federal Confidentiality of Alcohol and Drug Abuse Patient Records regulations: The Federal rules restrict any use of the information to criminally investigate or prosecute any alcohol or drug abuse patient.[facility] CenterIn the event this information is protected by the Federal Confidentiality of Alcohol and Drug Abuse Patient Records regulations: The Federal rules restrict any use of the information to criminally investigate or prosecute any alcohol or drug abuse patient.[facility] CenterIn the event this information is protected by the Federal Confidentiality of Alcohol and Drug Abuse Patient Records regulations: The Federal rules restrict any use of the information to criminally investigate or prosecute any alcohol or drug abuse patient.[facility] CenterIn the event this information is protected by the Federal Confidentiality of Alcohol and Drug Abuse Patient Records regulations: The Federal rules restrict any use of the information to criminally investigate or prosecute any alcohol or drug abuse patient.[facility] CenterIn the event this information is protected by the Federal Confidentiality of Alcohol and Drug Abuse Patient Records regulations: The Federal rules restrict any use of the information to criminally investigate or prosecute any alcohol or drug abuse patient.[facility] CenterIn the event this information is protected by the Federal Confidentiality of Alcohol and Drug Abuse Patient Records regulations: The Federal rules restrict any use of the information to criminally investigate or prosecute any alcohol or drug abuse patient.[facility] CenterIn the event this information is protected by the Federal Confidentiality of Alcohol and Drug Abuse Patient Records regulations: The Federal rules restrict any use of the information to criminally investigate or prosecute any alcohol or drug abuse patient.[facility] CenterIn the event this information is protected by the Federal Confidentiality of Alcohol and Drug Abuse Patient Records regulations: The Federal rules restrict any use of the information to criminally investigate or prosecute any alcohol or drug abuse patient.[facility] CenterIn the event this information is protected by the Federal Confidentiality of Alcohol and Drug Abuse Patient Records regulations: The Federal rules restrict any use of the information to criminally investigate or prosecute any alcohol or drug abuse patient.[facility] CenterIn the event this information is protected by the Federal Confidentiality of Alcohol and Drug Abuse Patient Records regulations: The Federal rules restrict any use of the information to criminally investigate or prosecute any alcohol or drug abuse patient.[facility] CenterIn the event this information is protected by the Federal Confidentiality of Alcohol and Drug Abuse Patient Records regulations: The Federal rules restrict any use of the information to criminally investigate or prosecute any alcohol or drug abuse patient.[facility] CenterIn the event this information is protected by the Federal Confidentiality of Alcohol and Drug Abuse Patient Records regulations: The Federal rules restrict any use of the information to criminally investigate or prosecute any alcohol or drug abuse patient.[facility] CenterIn the event this information is protected by the Federal Confidentiality of Alcohol and Drug Abuse Patient Records regulations: The Federal rules restrict any use of the information to criminally investigate or prosecute any alcohol or drug abuse patient.[facility] CenterIn the event this information is protected by the Federal Confidentiality of Alcohol and Drug Abuse Patient Records regulations: The Federal rules restrict any use of the information to criminally investigate or prosecute any alcohol or drug abuse patient.[facility] CenterIn the event this information is protected by the Federal Confidentiality of Alcohol and Drug Abuse Patient Records regulations: The Federal rules restrict any use of the information to criminally investigate or prosecute any alcohol or drug abuse patient.[facility] CenterIn the event this information is protected by the Federal Confidentiality of Alcohol and Drug Abuse Patient Records regulations: The Federal rules restrict any use of the information to criminally investigate or prosecute any alcohol or drug abuse patient.[facility] CenterIn the event this information is protected by the Federal Confidentiality of Alcohol and Drug Abuse Patient Records regulations: The Federal rules restrict any use of the information to criminally investigate or prosecute any alcohol or drug abuse patient.[facility] CenterIn the event this information is protected by the Federal Confidentiality of Alcohol and Drug Abuse Patient Records regulations: The Federal rules restrict any use of the information to criminally investigate or prosecute any alcohol or drug abuse patient.[facility] CenterIn the event this information is protected by the Federal Confidentiality of Alcohol and Drug Abuse Patient Records regulations: The Federal rules restrict any use of the information to criminally investigate or prosecute any alcohol or drug abuse patient.[facility] CenterIn the event this information is protected by the Federal Confidentiality of Alcohol and Drug Abuse Patient Records regulations: The Federal rules restrict any use of the information to criminally investigate or prosecute any alcohol or drug abuse patient.[facility] CenterIn the event this information is protected by the Federal Confidentiality of Alcohol and Drug Abuse Patient Records regulations: The Federal rules restrict any use of the information to criminally investigate or prosecute any alcohol or drug abuse patient.[facility] CenterIn the event this information is protected by the Federal Confidentiality of Alcohol and Drug Abuse Patient Records regulations: The Federal rules restrict any use of the information to criminally investigate or prosecute any alcohol or drug abuse patient.[facility] CenterIn the event this information is protected by the Federal Confidentiality of Alcohol and Drug Abuse Patient Records regulations: The Federal rules restrict any use of the information to criminally investigate or prosecute any alcohol or drug abuse patient.[facility] CenterIn the event this information is protected by the Federal Confidentiality of Alcohol and Drug Abuse Patient Records regulations: The Federal rules restrict any use of the information to criminally investigate or prosecute any alcohol or drug abuse patient.[facility] CenterIn the event this information is protected by the Federal Confidentiality of Alcohol and Drug Abuse Patient Records regulations: The Federal rules restrict any use of the information to criminally investigate or prosecute any alcohol or drug abuse patient.[facility] CenterIn the event this information is protected by the Federal Confidentiality of Alcohol and Drug Abuse Patient Records regulations: The Federal rules restrict any use of the information to criminally investigate or prosecute any alcohol or drug abuse patient.[facility] CenterIn the event this information is protected by the Federal Confidentiality of Alcohol and Drug Abuse Patient Records regulations: The Federal rules restrict any use of the information to criminally investigate or prosecute any alcohol or drug abuse patient.[facility] CenterIn the event this information is protected by the Federal Confidentiality of Alcohol and Drug Abuse Patient Records regulations: The Federal rules restrict any use of the information to criminally investigate or prosecute any alcohol or drug abuse patient.[facility] CenterIn the event this information is protected by the Federal Confidentiality of Alcohol and Drug Abuse Patient Records regulations: The Federal rules restrict any use of the information to criminally investigate or prosecute any alcohol or drug abuse patient.[facility] CenterIn the event this information is protected by the Federal Confidentiality of Alcohol and Drug Abuse Patient Records regulations: The Federal rules restrict any use of the information to criminally investigate or prosecute any alcohol or drug abuse patient.[facility] CenterIn the event this information is protected by the Federal Confidentiality of Alcohol and Drug Abuse Patient Records regulations: The Federal rules restrict any use of the information to criminally investigate or prosecute any alcohol or drug abuse patient.[facility] CenterIn the event this information is protected by the Federal Confidentiality of Alcohol and Drug Abuse Patient Records regulations: The Federal rules restrict any use of the information to criminally investigate or prosecute any alcohol or drug abuse patient.[facility] CenterIn the event this information is protected by the Federal Confidentiality of Alcohol and Drug Abuse Patient Records regulations: The Federal rules restrict any use of the information to criminally investigate or prosecute any alcohol or drug abuse patient.[facility] Center[facility] the event this information is protected by the Federal Confidentiality of Alcohol and Drug Abuse Patient Records regulations: The Federal rules restrict any use of the information to criminally investigate or prosecute any alcohol or drug abuse patient.[facility] CenterIn the event this information is protected by the Federal Confidentiality of Alcohol and Drug Abuse Patient Records regulations: The Federal rules restrict any use of the information to criminally investigate or prosecute any alcohol or drug abuse patient.[facility] Reason for Visit (unrecogniz ed section and content) Reason Comments Follow Up Specialty Diagnoses / Procedures Referred By Matias vaughan Referred To Contact Diagnoses Encounter for long-term (current) use of medications Procedures OFFICE/OUTPATIENT NEW HIGH MDM 60 MINUTES Clayton Granados, SALES ENGINEER ACCOUNT MANAGER.JUMBO OPERATOR [address] [place] [address] Phone: tel: fax: Referral ID Status Reason Start Date Expiration Date V isits Requested Visits Authorized [id number] Closed PCP Requested Referral 01/11/2025 01/11/2026 1 1 Reason Comments Follow Up Specialty Diagnoses / Procedures Referred By Matias vaughan Referred To Contact Psychiatry / ADULT PSYCHIATRY Diagnoses med check Procedures VIDEO PSYC/PSYL EST Clayton Granados, SALES ENGINEER ACCOUNT MANAGER.JUMBO OPERATOR [address] [place] [address] Clayton Granados, SALES ENGINEER ACCOUNT MANAGER.JUMBO OPERATOR [address] [place] [address] Referral ID Status Reason Start Date Expiration Date V isits Requested Visits Authorized [id number] New Request 05/18/2024 08/16/2024 [address] Reason Comments Results 10/10 Reason Comments New Patient Evaluation Specialty Diagnoses / Procedures Referred By Contac t Referred To Contact Diagnoses Panic attacks Bipolar affective disorder, current episode mixed, current episode severity unspecified (HCC) Depressive disorder Procedures CONSULT TO PSYCHIATRY OFFICE/OUTPATIENT NEW HIGH MDM 60-74 MINUTES Fredrick Boland, DO [address] [place] [address] Referral ID Status Reason Start Date Expiration Date Visits Requested Visits Authorized [id number] Pending Review PCP Requested Referral 07/20/2021 07/20/2022 [...] ECT Referral 08/24/2022 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 Date Comments 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 End Rider - Other 10/01/2022 ECT Reason Comments Patient [...] questions, please feel call Yuri Salcedo at [phone] Reason Comments Transition Of Care Reason Comments Research IRB: 738 Caring f or OutPatiEnts after Acute Kidney [...] Care Teams (unrecognized sec tion and content) Dynamometer Mechanic Relationship Specialty Start Date End Date Fredrick Boland DO [address], [place] [id number] PCP - General Family Practice 10/29/15 Dynamometer Mechanic Relationship Specialty Start Date End Date Fredrick Boland DO [address], [place] [id number] PCP - General Family Practice 10/29/15 Dynamometer Mechanic Relationship Specialty Start Date End Date Fredrick Boland, DO [address] [place] [address] PCP - General Family Practice 10/29/15 Dynamometer Mechanic Relationship Specialty Start Date End Date Fredrick Boland, DO [address] [place] [address] PCP - General Family Practice 10/29/15 Dynamometer Mechanic Relationship Specialty Start Date End Date Fredrick Boland, DO [address] [place] [address] PCP - General Family Practice 10/29/15 Dynamometer Mechanic Relationship Specialty Start Date End Date Fredrick Boland, DO [address] [place] [address] PCP - General Family Practice 10/29/15 Dynamometer Mechanic Relationship Specialty Start Date End Date Fredrick Boland, DO [address] [place] [address] PCP - General Family Practice 10/29/15 Dynamometer Mechanic Relationship Specialty Start Date End Date Fredrick Boland, DO [address] [place] [address] PCP - General Family Practice 10/29/15 Dynamometer Mechanic Relationship Specialty Start Date End Date Fredrick Boland, DO [address] [place] [address] PCP - General Family Practice 10/29/15 Dynamometer Mechanic Relationship Specialty Start Date End Date Fredrick Boland, DO [address] [place] [address] PCP - General Family Practice 10/29/15 Dynamometer Mechanic Relationship Specialty Start Date End Date Fredrick Boland, DO [address] [place] [address] PCP - General Family Practice 10/29/15 Dynamometer Mechanic Relationship Specialty Start Date End Date Fredrick Boland, DO [address] [place] [address] PCP - General Family Practice 10/29/15 Dynamometer Mechanic Relationship Specialty Start Date End Date Fredrick Boland, DO [address] [place] [address] PCP - General Family Practice 10/29/15 Dynamometer Mechanic Relationship Specialty Start Date End Date Fredrick Boland, DO [address] [place] [address] PCP - General Family Practice 10/29/15 Dynamometer Mechanic Relationship Specialty Start Date End Date Fredrick Boland, DO [address] [place] [address] PCP - General Family Medicine 10/29/15 Dynamometer Mechanic Relationship Specialty Start Date End Date Fredrick Boland, DO [address] [place] [address] PCP - General Family Medicine 10/29/15 Dynamometer Mechanic Relationship Specialty Start Date End Date Fredrick Boland, DO [address] [place] [address] PCP - General Family Medicine 10/29/15 Dynamometer Mechanic Relationship Specialty Start Date End Date Fredrick Boland, DO [address] [place] [address] PCP - General Family Medicine 10/29/15 Dynamometer Mechanic Relationship Specialty Start Date End Date Fredrick Boland, DO [address] [place] [address] PCP - General Family Medicine 10/29/15 Dynamometer Mechanic Relationship Specialty Start Date End Date Fredrick Boland, DO [address] [place] [address] PCP - General Family Medicine 10/29/15 Dynamometer Mechanic Relationship Specialty Start Date End Date Fredrick Boland, DO [address] [place] [address] PCP - General Family Medicine 10/29/15 Dynamometer Mechanic Relationship Specialty Start Date End Date Fredrick Boland, DO [address] [place] [address] PCP - General Family Medicine 10/29/15 Dynamometer Mechanic Relationship Specialty Start Date End Date Fredrick Boland, DO [address] [place] [address] PCP - General Family Medicine 10/29/15 Dynamometer Mechanic Relationship Specialty Start Date End Date Fredrick Boland, DO [address] [place] [address] PCP - General Family Medicine 10/29/15 Dynamometer Mechanic Relationship Specialty Start Date End Date Fredrick Boland, DO [address] [place] [address] PCP - General Family Medicine 10/29/15 Ariella Cortes, RN Registered Nurse Psychiatry 08/30/22 Dynamometer Mechanic Relationship Specialty Start Date End Date Fredrick Boland, DO [address] [place] [address] PCP - General Family Medicine 10/29/15 Ariella Cortes, RN Registered Nurse Psychiatry 08/30/22 Dynamometer Mechanic Relationship Specialty Start Date End Date Fredrick Boland, DO [address] [place] [address] PCP - General Family Medicine 10/29/15 Ariella Cortes, RN Registered Nurse Psychiatry 08/30/22 Dynamometer Mechanic Relationship Specialty Start Date End Date Fredrick Boland, DO [address] [place] [address] PCP - General Family Medicine 10/29/15 Ariella Cortes, RN Registered Nurse Psychiatry 08/30/22 Dynamometer Mechanic Relationship Specialty Start Date End Date Fredrick Boland, DO [address] [facility] [place] [address] PCP - General Family Medicine 10/29/15 Ariella Cortes, RN Registered Nurse Psychiatry 08/30/22 Dynamometer Mechanic Relationship Specialty Start Date End Date Fredrick Boland, DO [address] [place] [address] PCP - General Family Medicine 10/29/15 Ariella Cortes RN Registered Nurse Psychiatry 08/30/22 Dynamometer Mechanic Relationship Specialty Start Date End Date Fredrick Boland DO [address] [place] [address] PCP - General Family Medicine 10/29/15 Ariella Cortes, RN Registered Nurse Psychiatry 08/30/22 Dynamometer Mechanic Relationship Specialty Start Date End Date Fredrick Boland DO [address] [place] [address] PCP - General Family Medicine 10/29/15 Ariella Cortes, RN Registered Nurse Psychiatry 08/30/22 Dynamometer Mechanic Relationship Specialty Start Date End Date Fredrick Boland DO [address] [place] [address] PCP - General Family Medicine 10/29/15 Ariella Cortes, RN Registered Nurse Psychiatry 08/30/22 Dynamometer Mechanic Relationship Specialty Start Date End Date Fredrick Boland DO [address] [place] [address] PCP - General Family Medicine 10/29/15 Ariella Cortes, RN Registered Nurse Psychiatry 08/30/22 Dynamometer Mechanic Relationship Specialty Start Date End Date Fredrick Boland DO [address] [facility] [place] [address] PCP - General Family Medicine 10/29/15 Ariella Cortes RN Registered Nurse Psychiatry 08/30/22 Dynamometer Mechanic Relationship Specialty Start Date End Date Fredrick Boland DO [address] [facility] [place] [address] PCP - General Family Medicine 10/29/15 Ariella Cortes RN Registered Nurse Psychiatry 08/30/22 Dynamometer Mechanic Relationship Specialty Start Date End Date Fredrick Boland DO [address] [facility] [place] [address] PCP - General Family Medicine 10/29/15 Ariella Cortes, RN Registered Nurse Psychiatry 08/30/22 Dynamometer Mechanic Relationship Specialty Start Date End Date Frerdick Boland DO [address] [facility] [place] [address] PCP - General Family Medicine 10/29/15 Ariella Cortes, RN Registered Nurse Psychiatry 08/30/22 Dynamometer Mechanic Relationship Specialty Start Date End Date Fredrick Boland DO [address] [facility] [place] [address] PCP - General Family Medicine 10/29/15 Ariella Cortes RN Registered Nurse Psychiatry 08/30/22 Dynamometer Mechanic Relationship Specialty Start Date End Date Fredrick Boland DO [address] [place] [address] PCP - General Family Medicine 10/29/15 Ariella Cortes, RN Registered Nurse Psychiatry 08/30/22 Dynamometer Mechanic Relationship Specialty Start Date End Date Fredrick Boland DO [address] [place] [address] PCP - General Family Medicine 10/29/15 Ariella Cortes, RN Registered Nurse Psychiatry 08/30/22 Dynamometer Mechanic Relationship Specialty Start Date End Date Fredrick Boland DO [address] [facility] [place] [address] PCP - General Family Medicine 10/29/15 Ariella Cortes, RN Registered Nurse Psychiatry 08/30/22 Dynamometer Mechanic Relationship Specialty Start Date End Date Fredrick Boland DO [address] [place] [address] PCP - General Family Medicine 10/29/15 Ariella Cortes RN Registered Nurse Psychiatry 08/30/22 Dynamometer Mechanic Relationship Specialty Start Date End Date Fredrick Boland DO [address] [place] [address] PCP - General Family Medicine 10/29/15 Ariella Cortes, RN Registered Nurse Psychiatry 08/30/22 Dynamometer Mechanic Relationship Specialty Start Date End Date Fredrick Boland DO [address] [place] [address] PCP - General Family Medicine 10/29/15 Dynamometer Mechanic Relationship Specialty Start Date End Date Fredrick Boland DO [address] [place] [address] PCP - General Family Medicine 10/29/15 Ariella Cortes, RN Registered Nurse Psychiatry 08/30/22 Dynamometer Mechanic Relationship Specialty Start Date End Date Fredrick Boland DO [address] [place] [address] PCP - General Family Medicine 10/29/15 Ariella Cortes, RN Registered Nurse Psychiatry 08/30/22 Yesenia Rangel, SALES ENGINEER ACCOUNT MANAGER.JUMBO OPERATOR [address] [place] [address] Formerly [facility] 06/03/24 MarilinXochilt, SALES ENGINEER ACCOUNT MANAGER.JUMBO OPERATOR [address] [place] [address] Formerly [facility] 06/03/24 Dynamometer Mechanic Relationship Specialty Start Date End Date Fredrick Boland DO [address] [place] [address] PCP - General Family Medicine 10/29/15 Ariella Cortes, RN Registered Nurse Psychiatry 08/30/22 Yesenia Rangel, SALES ENGINEER ACCOUNT MANAGER.JUMBO OPERATOR [address] [place] [address] Formerly [facility] 06/03/24 MarilinXochilt, SALES ENGINEER ACCOUNT MANAGER.JUMBO OPERATOR [address] [place] [address] Formerly [facility] 06/03/24 Dynamometer Mechanic Relationship Specialty Start Date End Date Fredrick Boland DO [address] [place] [address] PCP - General Family Medicine 10/29/15 Ariella Cortes, RN Registered Nurse Psychiatry 08/30/22 08/07/24 Yesenia Rangel, SALES ENGINEER ACCOUNT MANAGER.JUMBO OPERATOR [address] [place] [address] Formerly [facility] 06/03/24 MarilinXochilt, SALES ENGINEER ACCOUNT MANAGER.JUMBO OPERATOR [address] [place] [address] Purchase Order Checker [facility] 06/03/24 Dynamometer Mechanic Relationship Specialty Start Date End Date Fredrick Boland DO [address] [place] [address] PCP - General Family Medicine 10/29/15 Yesenia Rangel, SALES ENGINEER ACCOUNT MANAGER.JUMBO OPERATOR [address] [facility] [place] [address] Purchase Order Checker Family [facility] 06/03/24 MarilinXochilt, SALES ENGINEER ACCOUNT MANAGER.JUMBO OPERATOR [address] [facility] [place] [address] Formerly [facility] 06/03/24 Dynamometer Mechanic Relationship Specialty Start Date End Date Fredrick Boland DO [address] [facility] [place] [address] PCP - General Family Medicine 10/29/15 Yesenia Rangel, SALES ENGINEER ACCOUNT MANAGER.JUMBO OPERATOR [address] [facility] [place] [address] Purchase Order Checker Family [facility] 06/03/24 MarilinXochilt, SALES ENGINEER ACCOUNT MANAGER.JUMBO OPERATOR [address] [facility] [place] [address] [facility] Dynamometer Mechanic Relationship Specialty Start Date End Date Fredrick Boland DO [address] [facility] [place] [address] PCP - General Family Medicine 10/29/15 Yesenia Rangel, SALES ENGINEER ACCOUNT MANAGER.JUMBO OPERATOR [address] [place] [address] Formerly [facility] 06/03/24 [facility], SALES ENGINEER ACCOUNT MANAGER.JUMBO OPERATOR [address] [facility] [place] [address] Formerly [facility] 06/03/24 Dynamometer Mechanic Relationship Specialty Start Date End Date Fredrick Boland DO [address] [facility] [place] [address] PCP - General Family Medicine 10/29/15 Yesenia Rangel, SALES ENGINEER ACCOUNT MANAGER.JUMBO OPERATOR [address] [facility] [place] [address] Formerly [facility] 06/03/24 [facility], SALES ENGINEER ACCOUNT MANAGER.JUMBO OPERATOR [address] [facility] [place] [address] Formerly [facility] 06/03/24 Dynamometer Mechanic Relationship Specialty Start Date End Date Fredrick Boland DO [address] [facility] [place] [address] PCP - General Family Medicine 10/29/15 Yesenia Rangel, SALES ENGINEER ACCOUNT MANAGER.JUMBO OPERATOR [address] [facility] [place] [address] Formerly [facility] 06/03/24 [facility], SALES ENGINEER ACCOUNT MANAGER.JUMBO OPERATOR [address] [facility] [place] [address] Formerly [facility] 06/03/24 Dynamometer Mechanic Relationship Specialty Start Date End Date Fredrick Boland DO [address] [facility] [place] [address] PCP - General Family Medicine 10/29/15 Yesenia Rangel, SALES ENGINEER ACCOUNT MANAGER.JUMBO OPERATOR [address] [place] [address] Purchase Order Checker [facility] 06/03/24 Xochilt Gaston, SALES ENGINEER ACCOUNT MANAGER.JUMBO OPERATOR [address] [facility] [place] [address] Purchase Order Checker [facility] 06/03/24 Dynamometer Mechanic Relationship Specialty Start Date End Date Fredrick Boland DO [address] [place] [address] PCP - General Family Medicine 10/29/15 Yesenia Rangel, SALES ENGINEER ACCOUNT MANAGER.JUMBO OPERATOR [address] [place] [address] Purchase Order Checker [facility] 06/03/24 MarilinXochilt, SALES ENGINEER ACCOUNT MANAGER.JUMBO OPERATOR [address] [place] [address] [facility] Dynamometer Mechanic Relationship Specialty Start Date End Date Fredrick Boland DO [address] [place] [address] PCP - General Family Medicine 10/29/15 Yesenia Rangel, SALES ENGINEER ACCOUNT MANAGER.JUMBO OPERATOR [address] [place] [address] [facility] 06/03/24 Xochilt Gaston, SALES ENGINEER ACCOUNT MANAGER.JUMBO OPERATOR [address] [place] [address] Purchase Order Checker [facility] 06/03/24 Dynamometer Mechanic Relationship Specialty Start Date End Date Fredrick Boland DO [address] [place] [address] PCP - General Family Medicine 10/29/15 Yesenia Rangel, SALES ENGINEER ACCOUNT MANAGER.JUMBO OPERATOR [address] [place] [address] Purchase Order Checker [facility] 06/03/24 MarilinXochilt, SALES ENGINEER ACCOUNT MANAGER.JUMBO OPERATOR [address] [place] [address] Purchase Order Checker [facility] 06/03/24 Dynamometer Mechanic Relationship Specialty Start Date End Date Fredrick Boland DO [address] [place] [address] PCP - General Family Medicine 10/29/15 Yesenia Rangel, SALES ENGINEER ACCOUNT MANAGER.JUMBO OPERATOR [address] [place] [address] Purchase Order Checker [facility] 06/03/24 Xochilt Gaston, SALES ENGINEER ACCOUNT MANAGER.JUMBO OPERATOR [address] [place] [address] Purchase Order Checker [facility] 06/03/24 Dynamometer Mechanic Relationship Specialty Start Date End Date Fredrick Boland DO [address] [place] [address] PCP - General Family Medicine 10/29/15 Xochilt Gaston, SALES ENGINEER ACCOUNT MANAGER.JUMBO OPERATOR [address] [place] [address] Purchase Order Checker [facility] 06/03/24 Dynamometer Mechanic Relationship Specialty Start Date End Date Fredrick Boland DO [address] [place] [address] PCP - General Family Medicine 10/29/15 Yesenia Rangel, SALES ENGINEER ACCOUNT MANAGER.JUMBO OPERATOR [address] [place] [address] Purchase Order Checker [facility] 06/03/24 09/14/24 Xochilt Gaston, SALES ENGINEER ACCOUNT MANAGER.JUMBO OPERATOR [address] [place] [address] Purchase Order Checker [facility] 06/03/24 Dynamometer Mechanic Relationship Specialty Start Date End Date Fredrick Boland DO [address] [place] [address] PCP - General Family Medicine 10/29/15 Yesenia Rangel, SALES ENGINEER ACCOUNT MANAGER.JUMBO OPERATOR [address] [place] [address] Purchase Order Checker Family [facility] 06/03/24 09/14/24 Xochilt Gaston, SALES ENGINEER ACCOUNT MANAGER.JUMBO OPERATOR [address] [place] [address] [facility] Dynamometer Mechanic Relationship Specialty Start Date End Date Fredrick Boland DO [address] [place] [address] PCP - General Family Medicine 10/29/15 Xochilt Gaston, SALES ENGINEER ACCOUNT MANAGER.JUMBO OPERATOR [address] [place] [address] Purchase Order Checker Family [facility] 06/03/24 Maggie Putnam MD [address] [place] [address] Internal Medicine 10/02/24 Dynamometer Mechanic Relationship Specialty Start Date End Date Fredrick Boland DO [address] [place] [address] PCP - General Family Medicine 10/29/15 Xochilt Gaston, SALES ENGINEER ACCOUNT MANAGER.JUMBO OPERATOR [address] [place] [address] Purchase Order Checker Family [facility] 06/03/24 Maggie Putnam MD [address] [place] [address] Internal Medicine 10/02/24 Dynamometer Mechanic Relationship Specialty Start Date End Date Fredrick Boland DO [address] [place] [address] PCP - General Family Medicine 10/29/15 Xochilt Gaston, SALES ENGINEER ACCOUNT MANAGER.JUMBO OPERATOR [address] [place] [address] Purchase Order Checker Family Medicine 06/03/24 Maggie Putnam MD [address] [place] [address] Internal Medicine 10/02/24 Dynamometer Mechanic Relationship Specialty Start Date End Date Fredrick Boland DO [address] [place] [address] PCP - General Family Medicine 10/29/15 Xochilt Gaston, SALES ENGINEER ACCOUNT MANAGER.JUMBO OPERATOR [address] [facility] [place] [address] Purchase Order Checker Family Medicine 06/03/24 Maggie Putnam MD [address] [place] [address] Internal Medicine 10/02/24 Dynamometer Mechanic Relationship Specialty Start Date End Date Fredrick Boland DO [address] [place], [place] [address] PCP - General Family Medicine 10/29/15 [facility] Healthcare[facility], SALES ENGINEER ACCOUNT MANAGER.JUMBO OPERATOR [address] [place], [place] [address] [phone] Purchase Order Checker Family Medicine 06/03/24 Maggie Putnam MD [address] [place] [address] Internal Medicine 10/02/24 Dynamometer Mechanic Relationship Specialty Start Date End Date Fredrick Boland DO [address] [place], [place] [address] PCP - General Family Medicine 10/29/15 [facility], SALES ENGINEER ACCOUNT MANAGER.JUMBO OPERATOR [address] [place] [address] Purchase Order Checker Family Medicine 06/03/24 Maggie Putnam MD [address] [place] [address] Internal Medicine 10/02/24 Larry Betancourt MD Purchase Order Checker 10/12/24 10/26/24 Dynamometer Mechanic Relationship Specialty Start Date End Date Fredrick Boland DO [address] [place], [place] [address] PCP - General Family Medicine 10/29/15 Xochilt Gaston, SALES ENGINEER ACCOUNT MANAGER.JUMBO OPERATOR [address] [place] [address] Purchase Order Checker [facility] 06/03/24 Maggie Putnam MD [address] [place] [address] Internal Medicine 10/02/24 Dynamometer Mechanic Relationship Specialty Start Date End Date Fredrick Boland DO [address] [place], [place] [address] PCP - General Family Medicine 11/28/24 Xochilt Gaston, SALES ENGINEER ACCOUNT MANAGER.JUMBO OPERATOR [address] [place] [address] Purchase Order Checker Family Medicine 06/03/24 Maggie Putnam MD [address] [place] [address] Internal Medicine 10/02/24 Lee Lou MD [address] [place] [address] Night Coverage Internal Medicine 11/28/24 11/28/24 Dynamometer Mechanic Relationship Specialty Start Date End Date Xochilt Gaston, SALES ENGINEER ACCOUNT MANAGER.JUMBO OPERATOR [address] [place] [address] Purchase Order Checker Family Medicine 06/03/24 Maggie Putnam MD [address] [place] [address] Internal Medicine 10/02/24 Dynamometer Mechanic Relationship Specialty Start Date End Date Fredrick Boland DO [address] [place] [address] PCP - General Family Medicine 11/28/24 Xochilt Gaston, SALES ENGINEER ACCOUNT MANAGER.JUMBO OPERATOR [address] [place] [address] Purchase Order Checker [facility] 06/03/24 Maggie Putnam MD [address] [place] [address] Internal Medicine 10/02/24 Ed Saxena, SALES ENGINEER ACCOUNT MANAGER.JUMBO OPERATOR [address] [place] [address] Formerly [facility] 12/10/24 Dynamometer Mechanic Relationship Specialty Start Date End Date Fredrick Boland DO [address] [place] [address] PCP - General Family Medicine 11/28/24 Xochilt Gaston, SALES ENGINEER ACCOUNT MANAGER.JUMBO OPERATOR [address] [place] [address] Purchase Order Checker [facility] 06/03/24 Maggie Putnam MD [address] [place] [address] Internal Medicine 10/02/24 Ed Saxena, SALES ENGINEER ACCOUNT MANAGER.JUMBO OPERATOR [address] [place] [address] [facility] 12/10/24 Keesha June [facility] [address] [place] [address] Transitional Care Pharmacist Pharmacy 12/20/24 03/21/25 Dynamometer Mechanic Relationship Specialty Start Date End Date Fredrick Boland DO [address] [place] [address] PCP - General Family Medicine 11/28/24 Xochilt Gaston, SALES ENGINEER ACCOUNT MANAGER.JUMBO OPERATOR [address] [place] [address] [facility] 06/[facility]/24 Maggie Putnam MD [address] [place] [address] Internal Medicine 10/02/24 Ed Saxena, SALES ENGINEER ACCOUNT MANAGER.JUMBO OPERATOR [address] [place] [address] Formerly [facility] 12/10/24 Mounika Trent, [place] [address] Transitional Care Pharmacist Pharmacy 12/21/24 03/21/25 Dynamometer Mechanic Relationship Specialty Start Date End Date Fredrick Boland DO [address] [place] [address] PCP - General Family Medicine 11/28/24 MarilinXochilt, SALES ENGINEER ACCOUNT MANAGER.JUMBO OPERATOR [address] [place] [address] Formerly [facility] 06/03/24 Maggie Putnam MD [address] [place] [address] Internal Medicine 10/02/24 Ed Saxena APRN.JUMBO OPERATOR [address] [place] [address] Purchase Order Checker Family Medicine 12/10/24 Mounika Trent, [facility] [address] [place] [address] Transitional Care Pharmacist Pharmacy 12/21/24 03/21/25 Dynamometer Mechanic Relationship Specialty Start Date End Date Fredrick Boland DO [address] [place] [address] PCP - General Family Medicine 11/28/24 Xochilt Gaston, SALES ENGINEER ACCOUNT MANAGER.JUMBO OPERATOR [address] [place] [address] Purchase Order Checker Family Medicine 06/03/24 Maggie Putnam MD [address] [place] [address] Internal Medicine 10/02/24 Ed Saxena, SALES ENGINEER ACCOUNT MANAGER.JUMBO OPERATOR [address] [place] [address] Purchase Order Checker Family Medicine 12/10/24 Mounika Trent, [facility] [address] [place] [address] Transitional Care Pharmacist Pharmacy 12/21/24 03/21/25 Dynamometer Mechanic Relationship Specialty Start Date End Date Fredrick Boland DO [address] [place] [address] PCP - General Family Medicine 11/28/24 Xochilt Gaston, SALES ENGINEER ACCOUNT MANAGER.JUMBO OPERATOR [facility] [place] [address] Purchase Order Checker [facility] 06/03/24 Maggie Putnam MD [address] [place] [address] Internal Medicine 10/02/24 Ed Saxena, SALES ENGINEER ACCOUNT MANAGER.JUMBO OPERATOR [address] [place] [address] Purchase Order Checker Family Medicine 12/10/[address] [address] Transitional Care Pharmacist Pharmacy 12/21/24 03/21/25 Dynamometer Mechanic Relationship Specialty Start Date End Date Fredrick Boland DO [address] [place] [address] PCP - General Family Medicine 11/28/24 Xochilt Gaston, SALES ENGINEER ACCOUNT MANAGER.JUMBO OPERATOR [address] [place] [address] 15637 Purchase Order Checker [facility] 06/03/24 Maggie Putnam MD [address] [place] [address] Internal Medicine 10/02/24 Ed Saxena, SALES ENGINEER ACCOUNT MANAGER.JUMBO OPERATOR [address] [place] [address] Purchase Order Checker Family Medicine 12/10/[address] [address] Transitional Care Pharmacist Pharmacy 12/21/24 03/21/25 Dynamometer Mechanic Relationship Specialty Start Date End Date Fredrick Boland DO [address] [place] [address] PCP - General Family Medicine 11/28/24 Xochilt Gaston, SALES ENGINEER ACCOUNT MANAGER.JUMBO OPERATOR [address] [place] [address] Purchase Order Checker [facility] 06/03/24 Maggie Putnam MD [address] [place] [address] [phone] Internal Medicine 10/02/24 Ed Saxena, SALES ENGINEER ACCOUNT MANAGER.JUMBO OPERATOR [address] [place] [address] Formerly [facility] 12/10/[facility] [address] [place], [place] [phone] Transitional Care Pharmacist Pharmacy 12/21/24 03/21/25 Dynamometer Mechanic Relationship Specialty Start Date End Date Fredrick Boland DO [address] [place] [address] PCP - General Family Medicine 11/28/24 Xochilt Gaston, SALES ENGINEER ACCOUNT MANAGER.JUMBO OPERATOR [address] [place] [address] Purchase Order Checker [facility] 06/03/24 Maggie Putnam MD [address] [place] [address] Internal Medicine 10/02/24 Ed Saxena SALES ENGINEER ACCOUNT MANAGER.JUMBO OPERATOR [address] [place] [address] Purchase Order Checker Family Medicine 12/10/[address] [address] Transitional Care Pharmacist Pharmacy 12/21/24 03/21/25 Dynamometer Mechanic Relationship Specialty Start Date End Date Fredrick Boland DO [facility] [place] [address] PCP - General Family Medicine 11/28/24 Xochilt Gaston, KAIN.JUMBO OPERATOR [address] [place] [address] Purchase Order Checker Family Medicine 06/03/24 Maggie Putnam MD [address] [place] [address]56 Internal Medicine 10/02/24 Ed Saxena SALES ENGINEER ACCOUNT MANAGER.JUMBO OPERATOR [address] [place] [address] Purchase Order Checker [facility] 12/10/24 [facility] [address] [place] [address] Transitional Care Pharmacist Pharmacy 12/21/24 03/21/25 Dynamometer Mechanic Relationship Specialty Start Date End Date Fredrick Boland DO [address] [place] [address] PCP - General Family Medicine 11/28/24 Xochilt Gaston, SALES ENGINEER ACCOUNT MANAGER.JUMBO OPERATOR [facility] [place] [address] Purchase Order Checker [facility] 06/03/24 Maggie Putnam MD [address] [place] [address]36 Internal Medicine 10/02/24 Ed Saxena, SALES ENGINEER ACCOUNT MANAGER.JUMBO OPERATOR [address] [place] [address] [phone] Purchase Order Checker [facility] 12/10/[address] [address] Transitional Care Pharmacist Pharmacy 12/21/24 03/21/25 Dynamometer Mechanic Relationship Specialty Start Date End Date Fredrick Boland DO [address] [place] [address] [phone] PCP - General Family Medicine 11/28/24 Xochilt Gaston, SALES ENGINEER ACCOUNT MANAGER.JUMBO OPERATOR [address] [place] [address] 926301 Formerly [facility] 06/03/24 Maggie Putnam MD [address] [place] [address] 85649 Internal Medicine 10/02/24 Ed Saxena, SALES ENGINEER ACCOUNT MANAGER.JUMBO OPERATOR [address] [place] [address] Purchase Order Checker [facility] 12/10/24 [facility] [address] [place] [address] Transitional Care Pharmacist Pharmacy 12/21/24 03/21/25 Dynamometer Mechanic Relationship Specialty Start Date End Date Fredrick Boland DO [address] [place] [address] PCP - General Family Medicine 11/28/24 Xochilt Gaston, KAIN.JUMBO OPERATOR [address] [place] [address] Purchase Order Checker Family Medicine 06/03/24 Maggie Putnam MD [address] [place] [address] Internal Medicine 10/02/24 Ed Saxena, KAIN.JUMBO OPERATOR [address] [place] [address] Purchase Order Checker [facility] 12/10/24 [facility] [address] [place], [place] [phone] Transitional Care Pharmacist Pharmacy 12/21/24 03/21/25 Dynamometer Mechanic Relationship Specialty Start Date End Date Fredrick Boland DO [address] [place] [address] PCP - General Family Medicine 11/28/24 Xochilt Gaston, SALES ENGINEER ACCOUNT MANAGER.JUMBO OPERATOR [address] [place] [address] Purchase Order Checker Family Medicine 06/03/24 Maggie Putnam MD [address] [place] [address] Internal Medicine 10/02/24 Ed Saxena SALES ENGINEER ACCOUNT MANAGER.JUMBO OPERATOR [address] [place] [address] Purchase Order Checker Family Medicine 12/10/24 [facility] [address] [place] [address] Transitional Care Pharmacist Pharmacy 12/21/24 03/21/25 Dynamometer Mechanic Relationship Specialty Start Date End Date Fredrick Boland DO [address] [place] [address] PCP - General Family Medicine 11/28/24 Xochilt Gaston APRN.JUMBO OPERATOR [address] [place] [address] Purchase Order Checker Family Medicine 06/03/24 Maggie Putnam MD [address] [place], [place] [address] Internal Medicine 10/02/24 Ed Saxena APRN.JUMBO OPERATOR [address] [place] [address] Purchase Order Checker [facility] 12/10/24 [facility] [address] [place] [address] Transitional Care Pharmacist Pharmacy 12/21/24 03/21/25 Stephie Montoya MD [address] [place] [address] [facility] Gastroenterology 01/22/25 Stephie Montoya MD [address] [place] [address] Home Parenteral Nutrition Provider Gastroenterology 01/22/25 Dynamometer Mechanic Relationship Specialty Start Date End Date Fredrick Boland DO [address] [place], [place] 437811 PCP - General Family Medicine 11/28/24 Xochilt Gaston APRN.JUMBO OPERATOR [address] [place], [place] 420021 Purchase Order Checker [facility] 06/03/24 Maggie Putnam MD [address] [place] [address] Internal Medicine 10/02/24 Ed Saxena APRN.JUMBO OPERATOR [address] [place], [place] 709741 Purchase Order Checker [facility] 12/10/24 [facility] [address] [place] [address] Transitional Care Pharmacist Pharmacy 12/21/24 03/21/25 Stephie Montoya MD [address] [place] [phone] [facility] Gastroenterology 01/22/25 Stephie Montoya MD [address] [place] [address] Home Parenteral Nutrition Provider Gastroenterology 01/22/25 Dynamometer Mechanic Relationship Specialty Start Date End Date Fredrick Boland DO [address] [place] [address] PCP - General Family Medicine 11/28/24 Xochilt Gaston APRN.JUMBO OPERATOR [address] [place], [place] 633571 Purchase Order Checker [facility] 06/03/24 Maggie Putnam MD [address] [place] [address] Internal Medicine 10/02/24 Ed Saxena APRN.JUMBO OPERATOR [address] [place] [address] [phone] Purchase Order Checker [facility] 12/10/24 [facility] [address] [place] [address] Transitional Care Pharmacist Pharmacy 12/21/24 03/21/25 [place] [address] [place], [place] [phone] [facility] Gastroenterology 01/22/25 Stephie Montoya MD [address] [place] [address] Home Parenteral Nutrition Provider Gastroenterology 01/22/25 Dynamometer Mechanic Relationship Specialty Start Date End Date Fredrick Boland DO [address] [place] [address] PCP - General Family Medicine 11/28/24 Xochilt Gaston, KAIN.JUMBO OPERATOR [address] [place] [address] Purchase Order Checker [facility] 06/03/24 Maggie Putnam MD [address] [place] [address] Internal Medicine 10/02/24 Ed Saxena, SALES ENGINEER ACCOUNT MANAGER.JUMBO OPERATOR [address] [place], [place] 881471 Purchase Order Checker [facility] 12/10/24 [facility] [address] [place] [address] Transitional Care Pharmacist Pharmacy 12/21/24 03/21/25 Stephie Montoya MD [address] [place] [address] [facility] Provider Gastroenterology 01/22/25 [place] [address] [place] [address] Home Parenteral Nutrition Provider Gastroenterology 01/22/25 Dynamometer Mechanic Relationship Specialty Start Date End Date Fredrick Boland DO [address] [place] [address] [phone] PCP - General Family Medicine 11/28/24 Xochilt Gaston, SALES ENGINEER ACCOUNT MANAGER.JUMBO OPERATOR [address] [place] [address] 334351 Purchase Order Checker [facility] 06/03/24 Maggie Putnam MD [address] [place] [address] 13400 Internal Medicine 10/02/24 Ed Saxena, SALES ENGINEER ACCOUNT MANAGER.JUMBO OPERATOR [address] [place] [address] [phone] Purchase Order Checker Family [facility] 12/10/24 Mounika Trent, [facility] [address] [place] [address] Transitional Care Pharmacist Pharmacy 12/21/24 03/21/25 Stephie Montoya MD [address] [place], [place] [phone] [facility] Gastroenterology 01/22/25 Stephie Montoya MD [address] [place] [address] Home Parenteral Nutrition Provider Gastroenterology 01/22/25 Dynamometer Mechanic Relationship Specialty Start Date End Date Fredrick Boland DO [address] [place] [address] 389001 PCP - General Family Medicine 11/28/24 Xochilt Gaston, SALES ENGINEER ACCOUNT MANAGER.JUMBO OPERATOR [address] [place] [address] 033351 Purchase Order Checker Family Medicine 06/03/24 Maggie Putnam MD [address] [place] [address]374 Internal Medicine 10/02/24 Ed Saxena, SALES ENGINEER ACCOUNT MANAGER.JUMBO OPERATOR [address] [place] [address] Purchase Order Checker Family Medicine 12/10/24 Mounika Trent, [facility] [address] [place] [address] Transitional Care Pharmacist Pharmacy 12/21/24 03/21/25 Stephie Montoya MD [address] [place] [phone] [facility] Gastroenterology 01/22/25 Stephie Montoya MD [address] [place] [phone] Home Parenteral Nutrition Provider Gastroenterology 01/22/25 Dynamometer Mechanic Relationship Specialty [place] [address] [place] [address] [phone] PCP - General Family Medicine 11/28/24 Xochilt Gaston APRN.JUMBO OPERATOR [address] [place] [address] [phone] Purchase Order Checker Family Medicine 06/03/24 Maggie Putnam MD [address] [place] [address]10 Internal Medicine 10/02/24 Ed Saxena APRN.JUMBO OPERATOR [address] [place] [address] Purchase Order Checker Family Medicine 12/10/24 Mounika Trent, [facility] [address] [place] [phone] Transitional Care Pharmacist Pharmacy 12/21/24 03/21/25 Stephie Montoya MD [address] [place] [address] [facility] Gastroenterology 01/22/25 Stephie Montoya MD [address] [place] [address] Home Parenteral Nutrition Provider Gastroenterology 01/22/25 Dynamometer Mechanic Relationship Specialty Start Date End Date Fredrick Boland DO [address] [place], [place] 205181 PCP - General Family Medicine 11/28/24 Xochilt Gaston APRN.JUMBO OPERATOR [address] [place], [place] 024261 Purchase Order Checker [facility] 06/03/24 Maggie Putnam MD [address] [place], [place] 389214 Internal Medicine 10/02/24 Ed Saxena APRN.JUMBO OPERATOR [address] [place], [place] 211881 Purchase Order Checker [facility] 12/10/24 [facility] [address] [place] [address] Transitional Care Pharmacist Pharmacy 12/21/24 03/21/25 Stephie Montoya MD [address] [place] [phone] [facility] Gastroenterology 01/22/25 Stephie Montoya MD [address] [place] [address] Home Parenteral Nutrition Provider Gastroenterology 01/22/25 Dynamometer Mechanic Relationship Specialty Start Date End Date Fredrick Boland DO [address] [place] [address] PCP - General Family Medicine 11/28/24 Xochilt Gaston, SALES ENGINEER ACCOUNT MANAGER.JUMBO OPERATOR [address] [place] [address] Purchase Order Checker [facility] 06/03/24 Maggie Putnam MD [address] [place] [address] Internal Medicine 10/02/24 Ed Saxena, SALES ENGINEER ACCOUNT MANAGER.JUMBO OPERATOR [address] [place], [place] 854441 [facility] [address] [place], [place] [phone] Transitional Care Pharmacist Pharmacy 12/21/24 03/21/25 Stephie Montoya MD [address] [place] [address] [facility] Gastroenterology 01/22/25 Stephie Montoya MD [address] [place], [place] [phone] Home Parenteral Nutrition Provider Gastroenterology 01/22/25 Dynamometer Mechanic Relationship Specialty Start Date End Date Fredrick Boland DO [address] [place] [address] PCP - General Family Medicine 11/28/24 Xochilt Gaston, SALES ENGINEER ACCOUNT MANAGER.JUMBO OPERATOR [address] [place] [address] Purchase Order Checker [facility] 06/03/24 Maggie Putnam MD [address] [place] [address] 31783 Internal Medicine 10/02/24 Ed Saxena, SALES ENGINEER ACCOUNT MANAGER.JUMBO OPERATOR [address] [place] [address] [phone] [facility] [address] [place] [address] Transitional Care Pharmacist Pharmacy 12/21/24 03/21/25 Stephie Montoya MD [address] [place], [place] [phone] [facility] Provider Gastroenterology 01/22/25 Stephie Montoya MD [address] [place], [place] [phone] Home Parenteral Nutrition Provider Gastroenterology 01/22/25 Dynamometer Mechanic Relationship Specialty Start Date End Date Fredrick Boland DO [address] [place] [address] [phone] PCP - General Family Medicine 11/28/24 Xochilt Gaston APRN.JUMBO OPERATOR [address] [place] [address] [phone] Purchase Order Checker [facility] 06/03/24 Maggie Putnam MD [address] [place], [place] 549154 Internal Medicine 10/02/24 Ed Saxena, SALES ENGINEER ACCOUNT MANAGER.JUMBO OPERATOR [address] [place], [place] [phone] Purchase Order Checker Family Medicine 12/10/24 Mounika Trent, [facility] [address] [place] [address] Transitional Care Pharmacist Pharmacy 12/21/24 03/21/25 Stephie Montoya MD [address] [place], [place] [phone] [facility] Gastroenterology 01/22/25 Stephie Montoya MD [address] [place] [address] Home Parenteral Nutrition Provider Gastroenterology 01/22/25 Chance Florentino, RN Registered Nurse General Surgery 02/20/25 Lamar Dey RN Registered Nurse Backup General Surgery 02/20/25 Kirit Devine MD [address] [place] [address] Surgeon General Surgery 02/20/25 Dynamometer Mechanic Relationship Specialty Start Date End Date Fredrick Boland DO [address] [place] [address] [phone] PCP - General Family Medicine 11/28/24 Xochilt Gaston, KAIN.JUMBO OPERATOR [address] [place] [address] [phone] Purchase Order Checker Family Medicine 06/03/24 Maggie Putnam MD [address] [place] [address] [phone] Internal Medicine 10/02/24 Ed Saxena, SALES ENGINEER ACCOUNT MANAGER.JUMBO OPERATOR [address] [place], [place] [phone] Purchase Order Checker Family Medicine 12/10/24 Mounika Trent, [facility] [address] [place] [address] Transitional Care Pharmacist Pharmacy 12/21/24 03/21/25 Stephie Montoya MD [address] [place] [phone] [facility] Gastroenterology 01/22/25 Stephie Montoya MD [address] [place] [address] Home Parenteral Nutrition Provider Gastroenterology 01/22/25 Chance Florentino, RN Registered Nurse General Surgery 02/20/25 Lamar Dey RN Registered Nurse Backup General Surgery 02/20/25 Kirit Devine MD [facility] [place] [phone] Surgeon General Surgery 02/20/25 Dynamometer Mechanic Relationship Specialty Start Date End Date Fredrick Boland DO [address] [place], [place] 880001 PCP - General Family Medicine 11/28/24 Xochilt Gaston APRN.JUMBO OPERATOR [address] [place], [place] 895321 Purchase Order Checker Family Medicine 06/03/24 Maggie Putnam MD [address] [place] [address] 73471 Internal Medicine 10/02/24 Ed Saxena APRN.JUMBO OPERATOR [address] [place] [address] Purchase Order Checker Family Medicine 12/10/24 [facility] [address] [place] [address] Transitional Care Pharmacist Pharmacy 12/21/24 03/21/25 Stephie Montoya MD [address] [place] [address] [facility] Gastroenterology 01/22/25 Stephie Montoya MD [address] [place] [address] Home Parenteral Nutrition Provider Gastroenterology 01/22/25 Chance Florentino, RN Registered Nurse General Surgery 02/20/25 Lamar Dey RN Registered Nurse Backup General Surgery 02/20/25 Kirit Devine MD [address] [place] [address] Surgeon General Surgery 02/20/25 Dynamometer Mechanic Relationship Specialty Start Date End Date Fredrick Boland DO [address] [place], [place] [id number] PCP - General Family Medicine 11/28/24 Xochilt Gaston, KAIN.JUMBO OPERATOR [address] [place] [address] Purchase Order Checker Family Medicine 06/03/24 Maggie Putnam MD [address] [place] [address] Internal Medicine 10/02/24 Ed Saxena APRN.JUMBO OPERATOR [address] [place], [place] 063151 Purchase Order Checker Family Medicine 12/10/24 [facility] [address] [place] [phone] Transitional Care Pharmacist Pharmacy 12/21/24 03/21/25 [place] [address] [place], [place] [phone] [facility] Gastroenterology 01/22/25 02/28/25 [place] [address] [place], [place] [phone] Home Parenteral Nutrition Provider Gastroenterology 01/22/25 02/28/25 Chance Florentino, RN Registered Nurse General Surgery 02/20/25 Lamar Dey, NATHANAEL Registered Nurse Backup General Surgery 02/20/25 Kirit Devine MD [address] [place] [phone] Surgeon General Surgery 02/20/25 Dynamometer Mechanic Relationship Specialty Start Date End Date Fredrick Boland DO [address] [place], [place] [id number] PCP - General Family Medicine 11/28/24 Xochilt Gaston APRN.JUMBO OPERATOR [address] [place], [place] [phone] Purchase Order Checker Family Medicine 06/03/24 Maggie Putnam MD [address] [place] [address] Internal Medicine 10/02/24 Ed Saxena, SALES ENGINEER ACCOUNT MANAGER.JUMBO OPERATOR [facility] [place], [place] 817251 Purchase Order Checker Family Medicine 12/10/24 Mounika Trent, [facility] [address] [place] [address] Transitional Care Pharmacist Pharmacy 12/21/24 03/21/25 Chance Florentino, RN Registered Nurse General Surgery 02/20/25 Lamar Dey, NATHANAEL Registered Nurse Backup General Surgery 02/20/25 Kirit Devine MD [address] [place], [place] [phone] Surgeon General Surgery 02/20/25 Dynamometer Mechanic Relationship Specialty Start Date End Date Fredrick Boland DO [address] [place] [address] 39054 PCP - General Family Medicine 11/28/24 Xochilt Gaston, SALES ENGINEER ACCOUNT MANAGER.JUMBO OPERATOR [address] [place] [address] 92256 Purchase Order Checker Family Medicine 06/03/24 Maggie Putnam MD [address] [place] [address] 09791 Internal Medicine 10/02/24 Ed Saxena, SALES ENGINEER ACCOUNT MANAGER.JUMBO OPERATOR [address] [place] [address] [phone] Purchase Order Checker Family Medicine 12/10/24 Mounika Trent, [facility] [address] [place], [place] [phone] Transitional Care Pharmacist Pharmacy 12/21/24 03/21/25 Chance Florentino, RN Registered Nurse General Surgery 02/20/25 Lamar Dey, RN Registered Nurse Backup General Surgery 02/20/25 Kirit Devine MD [facility] [place] [address] Surgeon General Surgery 02/20/25 Dynamometer Mechanic Relationship Specialty Start Date End Date Fredrick Boland DO [address] [place] [address] PCP - General Family Medicine 11/28/24 Xochilt Gaston APRN.JUMBO OPERATOR [address] [place] [address] 44230 Purchase Order Checker Family Medicine 06/03/24 Maggie Putnam MD [address] [place] [address] 76204 Internal Medicine 10/02/24 Ed Saxena APRN.JUMBO OPERATOR [address] [place] [address] 88805 Purchase Order Checker Family Medicine 12/10/24 Mounika Trent [facility] [address] [place] [address] Transitional Care Pharmacist Pharmacy 12/21/24 03/21/25 Chance Florentino, RN Registered Nurse General Surgery 02/20/25 Lamar Dey, RN Registered Nurse Backup General Surgery 02/20/25 Kirit Devine MD [address] [place] [address] Surgeon General Surgery 02/20/25 Dynamometer Mechanic Relationship Specialty Start Date End Date Fredrick Boland DO [address] [place] [address] PCP - General Family Medicine 11/28/24 Xochilt Gaston, SALES ENGINEER ACCOUNT MANAGER.JUMBO OPERATOR [address] [place] [address] Purchase Order Checker [facility] 06/03/24 Maggie Putnam MD [address] [place] [address] Internal Medicine 10/02/24 Ed Saxena, SALES ENGINEER ACCOUNT MANAGER.JUMBO OPERATOR [address] [place] [address] [facility]24 [place] [address] Transitional Care Pharmacist Pharmacy 12/21/24 03/21/25 Chance Florentino, RN Registered Nurse General Surgery 02/20/25 Lamar Dey, NATHANAEL Registered Nurse Backup General Surgery 02/20/25 Kirit Devine MD [address] [place] [address] Surgeon General Surgery 02/20/25 Dynamometer Mechanic Relationship Specialty Start Date End Date Fredrick Boland DO [address] [place] [address] PCP - General Family Medicine 11/28/24 Xochilt Gaston, SALES ENGINEER ACCOUNT MANAGER.JUMBO OPERATOR [address] [place] [address] Purchase Order Checker Family Medicine 06/03/24 Maggie Putnam MD [address] [place] [address] Internal Medicine 10/02/24 Ed Saxena APRN.JUMBO OPERATOR [address] [place], [place] 035811 Purchase Order Checker [facility] 12/10/24 [facility] [address] [place] [address] Transitional Care Pharmacist Pharmacy 12/21/24 03/21/25 Chance Florentino, RN Registered Nurse General Surgery 02/20/25 Lamar Dey RN Registered Nurse Backup General Surgery 02/20/25 Kirit Devine MD [address] [address] Surgeon General Surgery 02/20/25 FOR RECORDS PERTAINING [...] BE BASED ON THE PRIMARY CLINICAL RECORDS. [facility] provides no warranty or guarantee of the accuracy or completeness of information in this document.
[2025-05-25] MEDS: Magnesium Sulfate 4gm/100mL 4 GM/100 ML IV.SOLN. IV (12:28)
[2025-05-25 12:41] VITALS: BP 110/95; PULSE 68; O2SAT 98
[2025-05-25 13:05] VITALS: BP 119/89; PULSE 72; RESP 16; TEMP 36.7; O2SAT 95; BMI 26.6
[2025-05-25] MEDS: Potassium Chloride Oral Tablet 20 MEQ 60 MEQ PO ×2 (14:29→20:31)
[2025-05-25] MEDS: Calcium Gluconate IV 2 GM in 0.9% Normal Saline (100mL Bag) 100 ML IV (14:42)
[2025-05-25 16:15] VITALS: BP 118/87; PULSE 86; RESP 18; TEMP 36.6; O2SAT 97
[2025-05-25] MEDS: HYDROmorphone 0.5 MG/0.5 ML SYRINGE IV (16:20)
[2025-05-25 18:35] LABS: Magnesium 2.1 mg/dL (1.5-2.2)
[2025-05-25 18:48] LABS: Anion Gap 16 (5-15); BUN 3 mg/dL (4-19); BUN/Creat Ratio 2.3 RATIO (10-20); Calcium,Total 6.2 mg/dL (7.6-11.0); Carbon Dioxide 26.6 mmol/L (21.0-32.0); Chloride 101 mmol/L (98-108); Estimated Creatinine Clearance 71.23 ml/min (50-250); Glucose 129 mg/dL (70-99); Potassium 2.4 mmol/L (3.3-5.1)
[2025-05-25] MEDS: Calcium Gluconate IV 1 GM in 0.9% Normal Saline (100mL Bag) 100 ML IV (20:32)
[2025-05-25 21:45] VITALS: BP 118/85; PULSE 73; RESP 16; TEMP 36.9; O2SAT 97
[2025-05-25] MEDS: APIXABAN 5 MG TABLET PO (21:48)
[2025-05-25] MEDS: Doxepin Hydrochloride 10 MG Capsule PO (21:49)
[2025-05-25] MEDS: 0.9% Saline Lock 10 ML Syringe IV (23:10)
[2025-05-26 03:40] VITALS: BP 89/60; PULSE 55; RESP 16; TEMP 36.8; O2SAT 97
[2025-05-26 06:00] VITALS: BP 90/65; PULSE 63; RESP 16; TEMP 36.7; O2SAT 97
[2025-05-26 06:25] LABS: Hematocrit 35.9 % (37-47); Hemoglobin 11.7 g/dL (12.0-15.0); Immature Granulocytes Count 0.010 X10^3/uL (0.0-0.0); Mean Corp Hgb Conc 32.6 g/dL (32-36); Mean Corpuscular Volume 88.0 fL (81-99); Mean Platelet Vol. 10.1 fl (6.2-12.0); NRBC Flagged by Analyzer 0 % (0-5); Platelet Count 403 K/mm3 (150-450); RBC Distribution Width CV 14.1 % (11.6-14.6); RBC Distribution Width SD 45.3 fl (35.1-43.9); Red Blood Count 4.08 M/mm3 (4.2-5.4); White Blood Count 5.8 K/mm3 (4.4-11.0)
[2025-05-26 06:50] LABS: Magnesium 2.0 mg/dL (1.5-2.2)
[2025-05-26 07:03] LABS: Anion Gap 11 (5-15); BUN < 2 mg/dL (4-19); BUN/Creat Ratio UNABLE TO CALCULATE RATIO (10-20); Calcium,Total 6.4 mg/dL (7.6-11.0); Carbon Dioxide 26.7 mmol/L (21.0-32.0); Chloride 106 mmol/L (98-108); Estimated Creatinine Clearance 71.23 ml/min (50-250); Glucose 84 mg/dL (70-99); Potassium 2.5 mmol/L (3.3-5.1)
[2025-05-26 08:36] VITALS: BP 85/59; PULSE 62; RESP 16; TEMP 36.7; O2SAT 97
[2025-05-26] MEDS: Potassium Chloride 10mEq/100mL 10 MEQ/100 ML IV.SOLN. 100 MEQ IV BOLUS ×2 (08:42→09:54)
[2025-05-26] MEDS: APIXABAN 5 MG TABLET PO (08:44)
[2025-05-26] MEDS: Potassium Chloride Oral Tablet 20 MEQ 60 MEQ PO (08:44)
[2025-05-26] MEDS: Ergocalciferol 1.25 MG (50, 000 UNIT) Capsule PO (08:45)
[2025-05-26 10:29] VITALS: BP 116/90; PULSE 65; RESP 18; TEMP 36.7; O2SAT 99
[2025-05-26] MEDS: Potassium Chloride Oral Tablet 20 MEQ 40 MEQ PO ×2 (11:19→15:15)
[2025-05-26 14:12] VITALS: BP 102/78; PULSE 70; RESP 16; TEMP 36.8; O2SAT 98
[2025-05-26 14:33] LABS: Anion Gap 12 (5-15); BUN < 2 mg/dL (4-19); BUN/Creat Ratio UNABLE TO CALCULATE RATIO (10-20); Calcium,Total 7.1 mg/dL (7.6-11.0); Carbon Dioxide 25.0 mmol/L (21.0-32.0); Chloride 105 mmol/L (98-108); Estimated Creatinine Clearance 70.62 ml/min (50-250); Glucose 112 mg/dL (70-99); Potassium 3.1 mmol/L (3.3-5.1)
--- NOTE | 2025-05-26 14:40 | DCINST_ITS ---
Discharge Instructions DC O2, CPAP, BIPAP needs Home O2 Discharge instructions: No Dressing / Incision Discharge Activity: Return to Normal Activity Dressing / Incision Call your doctor if you observe: Fever of 101 or Higher, Shortness of breath, Dizziness, Fainting spells, Swelling in the ankles, Chest pain and Increased palpitations (irregular heartbeat) Follow Up Care Test Results: Test results from this visit will be discussed in further detail at your follow- up appointment, if applicable. Discharge Plan Admission Admit Date/Time: 05/25/25 12:05 Attending Provider: Taras Sue Primary Care Provider: Fredrick Boland Instructions Patient Instructions: ED Potassium-Rich Foods Additional Instructions / Restrictions: buy [id number] Tums 500 mg, chew 2 tablets twice daily and follow-up your calcium as an outpatient. I also ordered another vitamin D level the one that you had in January was low however you are not on vitamin D supplementation if this 1 remains low then I do recommend initiating vitamin D supplementation. Follow-up with your doctor in 3 to 5 days to monitor your electrolytes and make any adjustments as necessary. As discussed, make sure you are taking a multivitamin as well. Discharge Orders/Prescriptions Prescriptions: Continued escitalopram oxalate 20 mg tablet 30 mg PO DAILY omeprazole 40 mg capsule,delayed release(DR/EC) 40 mg PO DAILY olanzapine 10 mg tablet 10 mg PO QHS doxepin 10 mg capsule 10 mg PO DAILY dicyclomine 10 mg capsule 10 mg PO TID Lactobacillus acidoph-L.bulgar [Floranex] 1 million cell tablet 2 tab PO QHS Patient Comments: pt states she has not yet started taking lurasidone 40 mg tablet 40 mg PO QHS Eliquis 5 mg tablet 5 mg PO BID potassium chloride 20 mEq Tablet,Er Particles/Crystals 60 meq PO DAILY Patient Comments: pt ststes dr increased dose to 3 tabs daily Referrals / Follow Up: Fredrick Boland DO [Primary Care Provider, Medical] - Within 1 Week Disposition Disposition (needs filled in before D/C Order can be placed): Home, Self Care
--- NOTE | 2025-05-26 15:13 | DS.PCM_ITS ---
Providers Date of Admission: 05/25/25 Primary Care Physician: Dr. Fredrick Boland, DO Reason For Visit: ELECTROLYTE DERANGEMENTS Diagnosis Discharge Diagnosis (1) Hypokalemia: Status: Acute Code(s): E87.6 - Hypokalemia (2) Hypocalcemia: Status: Acute Code(s): E83.51 - Hypocalcemia Medications at Discharge Home Medications escitalopram oxalate 20 mg tablet 30 mg PO DAILY depression 04/27/22 omeprazole 40 mg capsule,delayed release 40 mg PO DAILY gerd 06/20/23 Lactobacillus acidoph-L.bulgaricus 1 million cell tablet (Floranex) 2 tab PO QHS supplement 05/24/25 apixaban 5 mg tablet (Eliquis) 5 mg PO BID heart 05/24/25 dicyclomine 10 mg capsule 10 mg PO TID gas/bloating 05/24/25 doxepin 10 mg capsule 10 mg PO DAILY pain 05/24/25 lurasidone 40 mg tablet 40 mg PO QHS mood 05/24/25 olanzapine 10 mg tablet 10 mg PO QHS anti psychotic 05/24/25 potassium chloride 20 mEq tablet,extended release(part/cryst) 60 meq PO DAILY k+ replace 05/24/25 Hospital Course Operations None Procedures None Summary of Care Provided Minutes Spent on Discharge: 33 Hospital Course: Per HPI: CHERYL ROSADO, is a 39 F who presents to the hospital because she does not feel well. She presented to the ER yesterday with hypokalemia and was discharged on potassium supplementation now she comes back with continued hypokalemia as well as hypocalcemia and hypomagnesemia. Phosphorus is pending. 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 Her ostomy has been reversed and her diarrhea has improved. Hospital Course: 1. Hypokalemia, hypocalcemia, and hypomagnesemia secondary to short gut syndrome and poor p.o. intake?39-year-old female presented to the hospital with just generalized not feeling well and weakness. She was found to have severe hypokalemia and hypomagnesemia as well as hypocalcemia. She was given multiple doses of replacement for each electrolyte deficiency, her magnesium normalized on discharge, her potassium improved to 3.1 and she was given an extra dose of 40 mEq potassium chloride p.o. prior to discharge, and her calcium had improved to 7.1. I discussed with her the need to improve her p.o. intake specifically with foods rich in these micronutrients, I also recommend a multivitamin which she does not appear to be on. I did order vitamin D level but this will not be back prior to her discharge so I do recommend that she follow-up with her PCP to see if she needs to be on supplementation, I believe she had been on supplementation at the end of January when her vitamin D level did come back at 8.9 but it does not appear that she is on any replacement currently and I do not know if this is because her vitamin D level normalized. I also recommend that she take 2 Tums twice daily to replete her calcium as well. I discussed with her the plan for discharge today and she expressed understanding of the risks and benefits of going home and would like to go home today. 2. 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 Her home medications were continued where appropriate Physical Exam Narrative General: Alert, Oriented x3, Cooperative, No apparent distress HEENT: Atraumatic, PERRLA, EOMI, Normocephalic Oral: Moist Mucosa Neck: Supple, No JVD Lungs: Diminished, Normal air movement, No rhonchi, No wheeze, No rales Cardiovascular: Regular rate, Regular Rhythm, Normal S1, Normal S2, No murmurs Abdomen: Soft, Non Tender, Non-Distended, No Hepato-splenomegaly Extremities: No edema, Capillary Refill Less than 3 Seconds Skin: Heel ulceration is in the final stages of healing on her left foot Musculoskeletal: No Tenderness to Palpation of Joints or Extremities Neurological: No focal neurological deficits, moves all extremities Psych/Mental Status: Normal affect, appropriate Weight / BMI Weight Weight: 175 lb Body Mass Index (BMI) 26.6 ABG / Lab / Microbiology Data 05/26/25 05:47 05/26/25 13:40 Laboratory: Laboratory Results - last 24 hr 05/25/25 17:57: Sodium 144, Potassium 2.4 L*, Chloride 101, Carbon Dioxide 26.6, Anion Gap 16 H, BUN 3 L, Creatinine 1.15, Estim Creat Clear Calc 71.23, Est GFR (MDRD) Non-Af 61, BUN/Creatinine Ratio 2.3 L, Glucose 129 H, Calcium 6.2 L*, Magnesium 2.1 05/26/25 05:47: WBC 5.8, RBC 4.08 L, Hgb 11.7 L, Hct 35.9 L, MCV 88.0, MCH 28.7, MCHC 32.6, RDW Std Deviation 45.3 H, RDW Coeff of Chris 14.1, Plt Count 403, MPV 10.1, Immature Gran % (Auto) 0.200, Neut % (Auto) 50.4, Lymph % (Auto) 37.1, [place] % (Auto) 8.1, Eos % (Auto) 3.3, Baso % (Auto) 0.9, Absolute Neuts (auto) 2.9, Absolute Lymphs (auto) 2.15, Nucleated RBC % 0, Sodium 144, Potassium 2.5 L*, Chloride 106, Carbon Dioxide 26.7, Anion Gap 11, BUN < 2 L, Creatinine 1.15, Estim Creat Clear Calc 71.23, Est GFR (MDRD) Non-Af 61, BUN/Creatinine Ratio UNABLE TO CALCULATE L, Glucose 84, Calcium 6.4 L*, Phosphorus 4.5, Magnesium 2.0 05/26/25 13:40: Sodium 142, Potassium 3.1 L, Chloride 105, Carbon Dioxide 25.0, Anion Gap 12, BUN < 2 L, Creatinine 1.16, Estim Creat Clear Calc 70.62, Est GFR (MDRD) Non-Af 61, BUN/Creatinine Ratio UNABLE TO CALCULATE L, Glucose 112 H, C alcium 7.1 L D/C Instructions Call your doctor if you observe: Fever of 101 or Higher, Shortness of breath, Dizziness, Fainting spells, Swelling in the ankles, Chest pain and Increased palpitations (irregular heartbeat) DC O2, CPAP, BIPAP Needs Home O2 Discharge instructions: No Meaningful Use Info Meaningful Use Meaningful Use Diagnoses (Choose all that apply): None applicable Discharge Plan Admission Admit Date/Time: 05/25/25 12:05 Attending Provider: Taras Sue Primary Care Provider: Fredrick Boland Instructions Patient Instructions: ED Potassium-Rich Foods Additional Instructions / Restrictions: buy dqpm-jus-wihqake Tums 500 mg, chew 2 tablets twice daily and follow-up your calcium as an outpatient. I also ordered another vitamin D level the one that you had in January was low however you are not on vitamin D supplementation if this 1 remains low then I do recommend initiating vitamin D supplementation. Follow-up with your doctor in 3 to 5 days to monitor your electrolytes and make any adjustments as necessary. As discussed, make sure you are taking a multivitamin as well. Discharge Orders/Prescriptions Prescriptions: Continued escitalopram oxalate 20 mg tablet 30 mg PO DAILY omeprazole 40 mg capsule,delayed release(DR/EC) 40 mg PO DAILY olanzapine 10 mg tablet 10 mg PO QHS doxepin 10 mg capsule 10 mg PO DAILY dicyclomine 10 mg capsule 10 mg PO TID Lactobacillus acidoph-L.bulgar [Floranex] 1 million cell tablet 2 tab PO QHS Patient Comments: pt states she has not yet started taking lurasidone 40 mg tablet 40 mg PO QHS Eliquis 5 mg tablet 5 mg PO BID potassium chloride 20 mEq Tablet,Er Particles/Crystals 60 meq PO DAILY Patient Comments: pt ststes dr increased dose to 3 tabs daily Referrals / Follow Up: Fredrick Boland DO [Primary Care Provider, Medical] - Within 1 Week Disposition Disposition (needs filled in before D/C Order can be placed): Home, Self Care Charges/Coding Visit Charges Inpatient E&M: 03383 Disch Hosp >30min
[2025-05-26 15:52] LABS: Vitamin D,25 Hydroxy < 6.0 ng/mL (30-100)
== END 2025-05-26 15:33 | disposition home or self-care (01) ==
LOC: ED 12:06 → PCU 12:18
PROVIDERS: Admitting Provider Family Medicine; Emergency Provider Emergency Medicine; PCP Student in an Organized Health Care Education/Training Program; Visit Provider Family Medicine
DX: E87.6 Hypokalemia (principal); L97.409 Non-pressure chronic ulcer of unspecified heel and midfoot with unspecified severity; F60.3 Borderline personality disorder; F31.9 Bipolar disorder, unspecified; K91.2 Postsurgical malabsorption, not elsewhere classified; Z87.891 Personal history of nicotine dependence; M62.81 Muscle weakness (generalized); F41.9 Anxiety disorder, unspecified; Z79.01 Long term (current) use of anticoagulants; Z86.718 Personal history of other venous thrombosis and embolism; E83.51 Hypocalcemia; E83.42 Hypomagnesemia; Z89.422 Acquired absence of other left toe(s); Z89.421 Acquired absence of other right toe(s); Z79.899 Other long term (current) drug therapy
CPT/HCPCS: J0612 ×2; 36415; 80048; 82306; 83735; 84100; 85025; 96365; 96366; 96367; 96368; 96375; 99221; 99284; A4216; G0378; J2405

== ENCOUNTER 2025-06-23 10:23 | Inpatient (IN) | payer MEDICAID, SELFPAY ==
[2025-06-23] VITALS (7 sets, daily range): BP systolic 108–123; BP diastolic 81–94; PULSE 61–109; RESP 15–17; TEMP 36.3–36.9; O2SAT 98–100; BMI 27.5; BMI 28.0
--- NOTE | 2025-06-23 10:34 | EKG12_ITS ---
Test Reason : Blood Pressure : */* mmHG Vent. Rate : 93 BPM Atrial Rate : 93 BPM P-R Int : 146 ms QRS Dur : 92 ms QT Int : 400 ms P-R-T Axes : -21 44 3 degrees QTcB Int : 497 ms Normal sinus rhythm QTcB >= 480 msec Abnormal ECG Confirmed by Nixon Sawant ([id number]), tape editor APPLE LANDRY ([id number]) on 06/25/2025 10:05:17 AM Referred By: Confirmed By: Nixon Sawant
--- NOTE | 2025-06-23 10:37 | EX.ED.DYSGE1 ---
HPI History of Present Illness Chief Complaint: Abn Labs Narrative Narrative: Patient is a 39-year-old female with a past medical history of small bowel obstruction with partial bowel resection ileostomy with reversal, DVT, bipolar disorder, borderline personality disorder who presented to the emergency department with a chief complaint of hand cramping and pain. She states that she woke up with this pain and cramping and came to the emergency department to be evaluated. She states that she has a history of low potassium when this happens and states that she is on potassium supplementation and taking this as prescribed. She states that she has been eating and drinking. States that she does have diarrhea but this has been going on since her bowel surgery and is unchanged this is not new. Patient also noted last time this happened her magnesium and calcium was low. 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 Abdominal bloating Flatulence Depression Former smoker Ischemic necrosis of toe Sepsis Hx of blood clots Diarrhea Anxiety Tobacco use Borderline personality disorder Obesity Bipolar disorder Home Medications ?Medication ?Instructions ?Recorded ?Last Taken ?Type escitalopram oxalate 20 mg tablet 30 mg PO DAILY depression 04/27/22 05/24/25 History omeprazole 40 mg capsule,delayed 40 mg PO DAILY gerd 06/20/23 05/24/25 History release Lactobacillus acidoph-L.bulgaricus 2 tab PO QHS supplement 05/24/25 05/24/25 History 1 million cell tablet (Floranex) apixaban 5 mg tablet (Eliquis) 5 mg PO BID heart 05/24/25 05/24/25 History dicyclomine 10 mg capsule 10 mg PO TID gas/bloating 05/24/25 05/24/25 History doxepin 10 mg capsule 10 mg PO DAILY pain 05/24/25 05/24/25 History lurasidone 40 mg tablet 40 mg PO QHS mood 05/24/25 05/24/25 History olanzapine 10 mg tablet 10 mg PO QHS anti psychotic 05/24/25 05/24/25 History potassium chloride 20 mEq 60 meq PO DAILY k+ replace 05/24/25 05/24/25 History tablet,extended release(part/cryst) Allergy/AdvReac Type Severity Reaction Status Date / Time hydrocodone (From Vicodin) AdvReac Abd Verified 06/23/25 10:25 cramps/diarrhea Family History Other Heart disease Surgical History History of creation of ostomy Hx of cholecystectomy H/O section History of carpal tunnel surgery Social History Smoking Status: Current every day smoker tobacco type: cigarettes and e-cigarettes substance use type: does not use ROS ROS ED ROS Narrative Constitutional: Denies any fevers, chills, headaches Cardiovascular: Denies chest pain Respiratory: Denies shortness of breath Abdomen: Complains of diarrhea as noted above denies nausea vomiting abdominal pain : Denies urinary symptoms Neurological: Denies any numbness, weakness, ting Musculoskeletal: Denies back pain Skin: Denies rashes or lesions EXAM Physical Exam Narrative Exam Narrative: General: Patient was lying in bed rest comfortably now. In acute distress Head: Atraumatic, normocephalic Eyes: PERRL bilaterally, EOMI bilaterally, no conjunctival injection noted Neck: Soft, supple, trachea midline Cardiovascular: Patient tachycardic with a regular rhythm Respiratory: Clear to auscultation bilaterally Abdomen: Soft, nondistended, nontender to palpation Extremities: +5/5 strength noted in the bilateral lower extremities Neurological: Patient following commands and that she was at [facility] year is 2024 Skin: Warm, dry, intact no rashes or lesions noted Const Vital Signs: 06/23/25 10:23 06/23/25 10:30 Temperature 97.8 F Temperature Source Oral Pulse Rate 109 H Respiratory Rate 16 Respiratory Effort Normal Respiratory Pattern Normal Blood Pressure 116/81 H Blood Pressure Mean 92 Pulse Ox 98 Oxygen Delivery Method Room Air MDM MDM MDM Narrative Medical decision making narrative: Patient is a 39-year-old female who presented to the emergency department with a chief complaint of bilateral hand cramping and concern for low potassium. On the differential diagnose includes but not limited to hypokalemia, hypomagnesia, hypocalcemia. Once workup is obtained reviewed she will be reevaluated. Patient be given a liter of IV fluids. Patient's CBC was reviewed which showed a white blood count of 6.3, hemoglobin is noted to be 11.9, plate count of 329. Patient sodium was noted to be normal at 141 potassium low indicating hypokalemia 2.5 she was ordered 50 mill equivalents orally and 40 mill equivalents intravenously. Patient's creatinine was 1.04 her calcium was noted be low at 5.6 ionized calcium was noted also be low at 0.83 she was ordered 2 g of calcium gluconate. Patient magnesium level low at 0.5 she is ordered 4 g of supplementation here. Patient AST and ALT were 58 and 47 respectively. Patient lipase was noted to be 8. Patient's EKG reviewed and showed a ventricular rate of 93 bpm AK interval was 146 patient's QTc was noted to be 497. At this point time will discuss the case with hospitalist for admission for her electrolyte derangement. Discussed case with hospitalist Dr. Pyle who will except patient for admission. Patient notified is agreeable this plan is requesting more pain medication should be given another 4 mg IV morphine. Lab Data Labs: Laboratory Results - last 24 hr 06/23/25 06/23/25 10:43 11:23 WBC 6.3 RBC 3.93 L Hgb 11.9 L Hct 34.3 L MCV 87.3 MCH 30.3 MCHC 34.7 RDW Std Deviation 42.9 RDW Coeff of Chris 13.5 Plt Count 329 MPV 9.8 Immature Gran % (Auto) 0.200 Neut % (Auto) 58.8 Lymph % (Auto) 32.8 [place] % (Auto) 6.6 Eos % (Auto) 1.1 Baso % (Auto) 0.5 Absolute Neuts (auto) 3.7 Absolute Lymphs (auto) 2.07 Nucleated RBC % 0 Sodium 141 Potassium 2.5 L* Chloride 104 Carbon Dioxide 23.0 Anion Gap 14 BUN 5 Creatinine 1.04 Estim Creat Clear Calc 80.03 Est GFR (MDRD) Non-Af 69 BUN/Creatinine Ratio 4.7 L Glucose 131 H Calcium 5.6 L* Ionized Calcium 0.83 L Magnesium 0.5 L* Total Bilirubin 0.77 AST 58 H ALT 47 H Alkaline Phosphatase 113 H Total Protein 6.2 Albumin 3.3 L Globulin 2.8 Albumin/Globulin Ratio 1.2 Lipase 8 L Discharge Plan Dx/Rx/DC Orders Clinical Impression: Hypokalemia, Hypocalcemia, Low magnesium level, Hand cramps Disposition Disposition: Acute Care Hospital [facility]
[2025-06-23 10:51] LABS: Hematocrit 34.3 % (37-47); Hemoglobin 11.9 g/dL (12.0-15.0); Immature Granulocytes Count 0.010 X10^3/uL (0.0-0.0); Mean Corp Hgb Conc 34.7 g/dL (32-36); Mean Corpuscular Volume 87.3 fL (81-99); Mean Platelet Vol. 9.8 fl (6.2-12.0); NRBC Flagged by Analyzer 0 % (0-5); Platelet Count 329 K/mm3 (150-450); RBC Distribution Width CV 13.5 % (11.6-14.6); RBC Distribution Width SD 42.9 fl (35.1-43.9); Red Blood Count 3.93 M/mm3 (4.2-5.4); White Blood Count 6.3 K/mm3 (4.4-11.0)
[2025-06-23] MEDS: 0.9% Normal Saline (1000mL) 1,000 ML 999 ML IV (10:57)
--- OUTSIDE RECORDS SUMMARY | 2025-06-23 10:58 | XMS RPT_ITS | CCD ---
Author Organization [facility] Care Team Providers Care Bottle House Pumper Name Role Phone Zakiya George Unavailable UnavailZakiya [...] Fredrick Boland DO Primary Care Provider Rangel RN HOSPICE.Yesenia HARRINGTON Unavailable [facility] RN HOSPICE.Xochilt HARRINGTON Unavailable Ariella Cortes RN Unavailable Unavailable Juan Carlos RN HOSPICE.Yesenia HARRINGTON Unavailable Maggie Putnam MD Unavailable Provider [...] Care Provider Lee Lou MD Unavailable [place] RN HOSPICE.BED RUBBER, Ed [place] Unavailable Leuschen [facility], Keesha Unavailable Crnonaomy [facility], Mounika Unavailable Stephie Montoya MD Unavailable Stephie [...] Care Unavailable Jag Thomas Attending Unavailable Boland, [place] [facility] Unavailable Rosa Maria Cai Referring Unavailable Ailyn Robert Attending Unavailable Ashley Rosen Attending Unavailable Taras Sue Attending Unavailable Taras Sue Consulting Unavailable Taras Sue Attending Unavailable Joshua Nazario Attending Unavailable Boland, [place] Primary Care Unavailable Ailyn Robert [facility] Taras Sue Attending [...] ARANA Attending Unavailable Yoseph Fonseca Attending [facility] Unavailable Doloresan, Alok Referring [...] Attending Unavailable JAMI ARANA Referring Unavailable Ed Saxnea Attending Unavailable Ed Saxena J Referring Unavailable [...] [facility] Acetaminophen / HYDROcodone Drug Allergy [facility] (1 source) HYDROcodone Drug Allergy [facility] (1 source) Acetaminophen Drug Allergy 02-19-2025 [facility] (1 source) HYDROcodone Drug Allergy 02-19-2025 [facility] (1 source) oxyCODONE Drug Allergy 02-19-2025 [facility] Rep[facility] Medications Current Medications Medication Drug [...] on above: Take 1 capsule by mo [facility] once daily. OTC NUTRITIONAL [...] Comment on above: Take 1 capsule by [facility] once daily. 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) 5 mg disintegrating tablet Indications: Ocular migraine [...] use of drug therapy; Translations: [Other termite renewal inspector (current) drug therapy] 05-20-2024 Episodic Other aftercare (1 source) Wound ; Translations: [Encounter for other specified surgical aftercare] 09-19-2024 Episodic Other aftercare (2 sources) Surgical follow-up; Translations: [Encounter for removal of sutures] 09-19-2024 Episodic Other aftercare (1 source) Long-term current use of aspirin; Translations: [termite renewal inspector (current) use of aspirin] 09-19-2024 Episodic Other aftercare (2 sources) Long-term current use of anticoagulant; Translations: [longterm (current) use of anticoagulants] 09-19-2024 Episodic Other aftercare (2 sources) Other termite renewal inspector (current) drug therapy; Translations: [Other termite renewal inspector (current) drug therapy] Onset: 5 Episodic Other aftercare (1 source) longterm (current) use of aspirin; Translations: [termite renewal inspector (current) use of aspirin] Onset: 5 Episodic Other aftercare (5 sources) longterm (current) use of anticoagulants; Translations: [longterm (current) use of anticoagulants] Onset: 5 Episodic Other aftercare (1 source) longterm (current) use of insulin; Translations: [termite renewal inspector (current) use of insulin] Onset: Episodic Other [...] limb ischemia 09-19-2024 Unclassified (1 source) 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 Onset: 5 11-08-2024 Unclassified (1 source) Long-term [...] (20 sources) Patient encounter status; Translations: [Other [facility] (current) drug therapy] Onset: 08-21-2024 Episodic Other aftercare (20 sources) Drug therapy finding; Translations: [longterm (current) use of anticoagulants] Onset: 08-20-2024 08-20-2024 Episodic Other aftercare (20 sources) Insulin dose changed; Translations: [termite renewal inspector (current) use of insulin] Onset: 08-30-2024 08-31-2024 [...] CNOV Office Visit (SPAGWO ) DALY EVANS ([id number]) 1985 F CHT Date Time Provider Department 05/02/25 9:00 AM KARTHIK MALDONADO During your visit today, we recorded the following information about you: Pulse Respiration Normal [facility] Ova and Parasites 8623on OP Normal [facility] Comment on above: Performed By: #### M 600.5000 ####[facility] [address] [place], [place], [phone] Prothrombin Time w/INRon INR Normal [facility] Comment on above: Result Comment: Antoine sanches via OM: Order cancelled - Patient discharged Performed By: #### L 300.3900 ####[facility] [address] [place], [address] PROTIME Normal 11.7-14.9 [facility] Comment on above: Result Comment: Antoine sanches via OM: Order cancelled - Patient discharged Performed By: #### L 300.3900 ####[facility] [address] [place], [address] Prothrombin Time w/INRon INR Normal [facility] Comment on above: Result Comment: Canc elled via OM: Order cancelled - Patient discharged Performed By: #### L 300.3900 ####[facility] [address] [place], [address] PROTIME Normal 11.7-14.9 [facility] Comment on above: Result Comment: Canc elled via OM: Order cancelled - Patient discharged Performed By: #### L 300.3900 ####[facility] [address] [place], [address] Basic Metabolic Profile (BMP )on 02-23-2025 BUN/CRE UNABLE TO CALCULATE Low 10-20 [facility] Comment on above: Performed By: #### L 500.2500 ####[facility] [address] [place], [address] Calcium [Mass/Vol] 7.1 mg/dL Low 7.6-11.0 [facility] Comment on above: Performed By: #### L 500.2500 ####[facility] [address] [place], [address] Chloride [Moles/Vol] 109 mmol/L High 98-108 [facility] Comment on above: Performed By: #### L 500.2500 ####[facility] [address] [place], [address] CO2 [Moles/Vol] 25.8 mmol/L Normal 21.0-32.0 [facility] Comment on above: Performed By: #### L 500.2500 ####[facility] [address] [place], [address] Creatinine [Mass/Vol] 0.67 mg/dL Low 0.70-1.20 [facility] Comment on above: Performed By: #### L 500.2500 ####[facility] [address] [place], [address] ECRCL 123.02 ml/min Normal 50-250 [facility] Comment on above: Performed By: #### L 500.2500 ####[facility] [address] [place], [address] GAP 7 Normal 5-15 [facility] Comment on above: Performed By: #### L 500.2500 ####[facility] [address] [place], [address] GFR/1.73 sq M.predicted among non-blacks MDRD (S/P/Bld) [Vol rate/Area] 113 mL/min/{1.73_m2} Normal >60 [facility] Comment on above: Result Comment: mL/m in/1.73m2 CKD-EPI Creatinine Equation (2020) Performed By: #### L 500.2500 ####[facility] [address] [place], [address] Glucose [Mass/Vol] 136 mg/dL High 70-99 [facility] Comment on above: Performed By: #### L 500.2500 ####[facility] [address] [place], [address] Potassium [Moles/Vol] 3.2 mmol/L Low 3.3-5.1 [facility] Comment on above: Performed By: #### L 500.2500 ####[facility] [address] [place], [address] Sodium [Moles/Vol] 142 mmol/L Normal 133-145 [facility] Comment on above: Performed By: #### L 500.2500 ####[facility] [address] [place], [address] Urea nitrogen [Mass/Vol] mg/dL Low 4-19 [facility] Comment on above: Performed By: #### L 500.2500 ####[facility] [address] [place], [address] BUN/CRE 3.5 RATIO Low 10-20 [facility] Comment on above: Performed By: #### L 100.0100, L500.2500, L501.2300, L501.5200 ####[facility] [address] [place], [address] Calcium [Mass/Vol] 7.6 mg/dL Normal 7.6-11.0 [facility] Comment on above: Performed By: #### L 100.0100, L500.2500, L501.2300, L501.5200 ####[facility] [address] [place], [address] Chloride [Moles/Vol] 108 mmol/L Normal 98-108 [facility] Comment on above: Performed By: #### L 100.0100, L500.2500, L501.2300, L501.5200 ####[facility] [address] [place], [address] CO2 [Moles/Vol] 22.5 mmol/L Normal 21.0-32.0 [facility] Comment on above: Performed By: #### L 100.0100, L500.2500, L501.2300, L501.5200 ####[facility] [address] [place], [address] Creatinine [Mass/Vol] 0.69 mg/dL Low 0.70-1.20 [facility] Comment on above: Performed By: #### L 100.0100, L500.2500, L501.2300, L501.5200 ####[facility] [address] [place], [address] ECRCL 119.04 ml/min Normal 50-250 [facility] Comment on above: Performed By: #### L 100.0100, L500.2500, L501.2300, L501.5200 ####[facility] [address] [place], [address] GAP 11 Normal 5-15 [facility] Comment on above: Performed By: #### L 100.0100, L500.2500, L501.2300, L501.5200 ####[facility] [address] [place], [address] GFR/1.73 sq M.predicted among non-blacks MDRD (S/P/Bld) [Vol rate/Area] 112 mL/min/{1.73_m2} Normal >60 [facility] Comment on above: Result Comment: mL/m in/1.73m2 CKD-EPI Creatinine Equation (2020) Performed By: #### L 100.0100, L500.2500, L501.2300, L501.5200 ####[facility] [address] [place], [address] Glucose [Mass/Vol] 112 mg/dL High 70-99 [facility] Comment on above: Performed By: #### L 100.0100, L500.2500, L501.2300, L501.5200 ####[facility] [address] [place], [address] Potassium [Moles/Vol] 2.9 mmol/L Low 3.3-5.1 [facility] Comment on above: Performed By: #### L 100.0100, L500.2500, L501.2300, L501.5200 ####[facility] [address] [place], [address] Sodium [Moles/Vol] 141 mmol/L Normal 133-145 [facility] Comment on above: Performed By: #### L 100.0100, L500.2500, L501.2300, L501.5200 ####[facility] [address] [place], [address] Urea nitrogen [Mass/Vol] 2 mg/dL Low 4-19 [facility] Comment on above: Performed By: #### L 100.0100, L500.2500, L501.2300, L501.5200 ####[facility] [address] [place], [address] CBC W/Diff, Automatedon 08-3 0-5 Absolute Lymph 1.51 X10 3/uL Normal 0.83-4.51 [facility] Comment on above: Performed By: #### L 100.0100, L500.2500, L501.2300, L501.5200 ####[facility] [address] [place], [address] Absolute Neut 3.3 X10 3/uL Normal 2.0-7.7 [facility] Comment on above: Performed By: #### L 100.0100, L500.2500, L501.2300, L501.5200 ####[facility] [address] [place], [address] Basophils/100 WBC (Bld) 0.6 % Normal 0-1 [facility] Comment on above: Performed By: #### L 100.0100, L500.2500, L501.2300, L501.5200 ####[facility] [address] [place], [address] Eosinophils/100 WBC (Bld) 2.6 % Normal 0-5 [facility] Comment on above: Performed By: #### L 100.0100, L500.2500, L501.2300, L501.5200 ####[facility] [address] [place], [address] Erythrocyte distribution width (RBC) [Ratio] 14.6 % Normal 11.6-14.6 [facility] Comment on above: Performed By: #### L 100.0100, L500.2500, L501.2300, L501.5200 ####[facility] [address] [place], [address] Hematocrit (Bld) [Volume fraction] 31.3 % Low 37-47 [facility] Comment on above: Performed By: #### L 100.0100, L500.2500, L501.2300, L501.5200 ####[facility] [address] [place], [address] Hemoglobin (Bld) [Mass/Vol] 10.2 g/dL Low 12.0-15.0 [facility] Comment on above: Performed By: #### L 100.0100, L500.2500, L501.2300, L501.5200 ####[facility] [address] [place], [address] IG% 0.200 Normal 0.0-0.9 [facility] Comment on above: Result Comment: IG% - Immature Granulocytes (promyelocytes, myelocytes andmetamyelocytes) > 1% indicates that a LEFT SHIFT is Present. Performed By: #### L 100.0100, L500.2500, L501.2300, L501.5200 ####[facility] [address] [place], [address] Lymphocytes/100 WBC (Bld) 28.3 % Normal 19-41 [facility] Comment on above: Performed By: #### L 100.0100, L500.2500, L501.2300, L501.5200 ####[facility] [address] [place], [address] MCH (RBC) [Entitic mass] 27.3 pg Normal 27.0-32.0 [facility] Comment on above: Performed By: #### L 100.0100, L500.2500, L501.2300, L501.5200 ####[facility] [address] [place], [address] MCHC (RBC) [Mass/Vol] 32.6 g/dL Normal 32-36 [facility] Comment on above: Performed By: #### L 100.0100, L500.2500, L501.2300, L501.5200 ####[facility] [address] [place], [address] MCV (RBC) [Entitic vol] 83.7 fL Normal 81-99 [facility] Comment on above: Performed By: #### L 100.0100, L500.2500, L501.2300, L501.5200 ####[facility] [address] [place], [address] Monocytes/100 WBC (Bld) 7.5 % Normal 0-10 [facility] Comment on above: Performed By: #### L 100.0100, L500.2500, L501.2300, L501.5200 ####[facility] [address] [place], [address] Neutrophils/100 WBC (Bld) 60.8 % Normal 47-70 [facility] Comment on above: Performed By: #### L 100.0100, L500.2500, L501.2300, L501.5200 ####[facility] [address] [place], [address] Nucleated RBC (Bld) [#/Vol] 0 10*3/uL Normal 0-5 [facility] Comment on above: Performed By: #### L 100.0100, L500.2500, L501.2300, L501.5200 ####[facility] [address] [place], [address] Platelet mean volume (Bld) [Entitic vol] 9.4 fL Normal 6.2-12.0 [facility] Comment on above: Performed By: #### L 100.0100, L500.2500, L501.2300, L501.5200 ####[facility] [address] [place], [address] Platelets (Bld) [#/Vol] 297 10*3/uL Normal 150-450 [facility] Comment on above: Performed By: #### L 100.0100, L500.2500, L501.2300, L501.5200 ####[facility] [address] [place], [address] RBC (Bld) [#/Vol] 3.74 10*6/uL Low 4.2-5.4 [facility] Comment on above: Performed By: #### L 100.0100, L500.2500, L501.2300, L501.5200 ####[facility] [address] [place], [address] RDW SD 44.8 fl High 35.1-43.9 [facility] Comment on above: Performed By: #### L 100.0100, L500.2500, L501.2300, L501.5200 ####[facility] [address] [place], [address] WBC (Bld) [#/Vol] 5.3 10*3/uL Normal 4.4-11.0 [facility] Comment on above: Performed By: #### L 100.0100, L500.2500, L501.2300, L501.5200 ####[facility] [address] [place], [address] Discharge Instructionon 08-3 Discharge Instruction Normal [facility] Magnesiumon 02-23-2025 Magnesium [Mass/Vol] 1.6 mg/dL Normal 1.5-2.2 [facility] Comment on above: Performed By: #### L 100.0100, L500.2500, L501.2300, L501.5200 ####[facility] [address] [place], [address] Phosphoruson 02-23-2025 Phosphate [Mass/Vol] 3.4 mg/dL Normal 2.7-4.5 [facility] Comment on above: Performed By: #### L 100.0100, L500.2500, L501.2300, L501.5200 ####[facility] [address] [place], [address] Prothrombin Time w/INRon INR Coag (PPP) [Relative time] 1.7 {INR} Normal [facility] Comment on above: Performed By: #### L 300.3900 ####[facility] [address] [place], [address] PT Coag (PPP) [Time] 20.0 s High 11.7-14.9 [facility] Comment on above: Performed By: #### L 300.3900 ####[facility] [address] [place], [address] Basic Metabolic Profile (BMP )on 02-22-2025 BUN/CRE UNABLE TO CALCULATE Low 10-20 [facility] Comment on above: Performed By: #### L 500.2500 ####[facility] [address] [place], [address] Calcium [Mass/Vol] 7.9 mg/dL Normal 7.6-11.0 [facility] Comment on above: Performed By: #### L 500.2500 ####[facility] [address] [place], [address] Chloride [Moles/Vol] 109 mmol/L High 98-108 [facility] Comment on above: Performed By: #### L 500.2500 ####[facility] [address] [place], [address] CO2 [Moles/Vol] 25.1 mmol/L Normal 21.0-32.0 [facility] Comment on above: Performed By: #### L 500.2500 ####[facility] [address] [place], [address] Creatinine [Mass/Vol] 0.77 mg/dL Normal 0.70-1.20 [facility] Comment on above: Performed By: #### L 500.2500 ####[facility] [address] [place], [address] ECRCL 106.68 ml/min Normal 50-250 [facility] Comment on above: Performed By: #### L 500.2500 ####[facility] [address] [place], [address] GAP 11 Normal 5-15 [facility] Comment on above: Performed By: #### L 500.2500 ####[facility] [address] [place], [address] GFR/1.73 sq M.predicted among non-blacks MDRD (S/P/Bld) [Vol rate/Area] 100 mL/min/{1.73_m2} Normal >60 [facility] Comment on above: Result Comment: mL/m in/1.73m2 CKD-EPI Creatinine Equation (2020) Performed By: #### L 500.2500 ####[facility] [address] [place], [address] Glucose [Mass/Vol] 143 mg/dL High 70-99 [facility] Comment on above: Performed By: #### L 500.2500 ####[facility] [address] [place], [address] Potassium [Moles/Vol] 2.9 mmol/L Low 3.3-5.1 [facility] Comment on above: Performed By: #### L 500.2500 ####[facility] [address] [place], [address] Sodium [Moles/Vol] 145 mmol/L Normal 133-145 [facility] Comment on above: Performed By: #### L 500.2500 ####[facility] [address] [place], [address] Urea nitrogen [Mass/Vol] mg/dL Low 4-19 [facility] Comment on above: Performed By: #### L 500.2500 ####[facility] [address] [place], [address] BUN/CRE UNABLE TO CALCULATE Low 10-20 [facility] Comment on above: Performed By: #### L 100.0100, L500.2500 ####[facility] [address] [place], [address] Calcium [Mass/Vol] 7.6 mg/dL Normal 7.6-11.0 [facility] Comment on above: Performed By: #### L 100.0100, L500.2500 ####[facility] [address] [place], [address] Chloride [Moles/Vol] 105 mmol/L Normal 98-108 [facility] Comment on above: Performed By: #### L 100.0100, L500.2500 ####[facility] [address] [place], [address] CO2 [Moles/Vol] 25.4 mmol/L Normal 21.0-32.0 [facility] Comment on above: Performed By: #### L 100.0100, L500.2500 ####[facility] [address] [place], [address] Creatinine [Mass/Vol] 0.73 mg/dL Normal 0.70-1.20 [facility] Comment on above: Performed By: #### L 100.0100, L500.2500 ####[facility] [address] [place], [address] ECRCL 112.52 ml/min Normal 50-250 [facility] Comment on above: Performed By: #### L 100.0100, L500.2500 ####[facility] [address] [place], [address] GAP 10 Normal 5-15 [facility] Comment on above: Performed By: #### L 100.0100, L500.2500 ####[facility] [address] [place], [address] GFR/1.73 sq M.predicted among non-blacks MDRD (S/P/Bld) [Vol rate/Area] 106 mL/min/{1.73_m2} Normal >60 [facility] Comment on above: Result Comment: mL/m in/1.73m2 CKD-EPI Creatinine Equation (2020) Performed By: #### L 100.0100, L500.2500 ####[facility] [address] [place], [address] Glucose [Mass/Vol] 121 mg/dL High 70-99 [facility] Comment on above: Performed By: #### L 100.0100, L500.2500 ####[facility] [address] [place], [address] Potassium [Moles/Vol] 2.2 mmol/L Invalid Interpretation Code 3.3-5.1 [facility] Comment on above: Result Comment: Crit ical Result(s) Called at: 0637 by: PHIL JUAREZ TO RNAREAD. ??Results read back by same. Performed By: #### L 100.0100, L500.2500 ####[facility] [address] [place], [address] Sodium [Moles/Vol] 141 mmol/L Normal 133-145 [facility] Comment on above: Performed By: #### L 100.0100, L500.2500 ####[facility] [address] [place], [address] Urea nitrogen [Mass/Vol] mg/dL Low 4-19 [facility] Comment on above: Performed By: #### L 100.0100, L500.2500 ####[facility] [address] [place], [address] CBC W/Diff, Automatedon 01-26 Absolute Lymph 1.32 X10 3/uL Normal 0.83-4.51 [facility] Comment on above: Performed By: #### L 100.0100, L500.2500 ####[facility] [address] [place], [address] Absolute Neut 3.5 X10 3/uL Normal 2.0-7.7 [facility] Comment on above: Performed By: #### L 100.0100, L500.2500 ####[facility] [address] [place], [address] Basophils/100 WBC (Bld) 0.6 % Normal 0-1 [facility] Comment on above: Performed By: #### L 100.0100, L500.2500 ####[facility] [address] [place], [address] Eosinophils/100 WBC (Bld) 3.1 % Normal 0-5 [facility] Comment on above: Performed By: #### L 100.0100, L500.2500 ####[facility] [address] [place], [address] Erythrocyte distribution width (RBC) [Ratio] 14.6 % Normal 11.6-14.6 [facility] Comment on above: Performed By: #### L 100.0100, L500.2500 ####[facility] [address] [place], [address] Hematocrit (Bld) [Volume fraction] 31.7 % Low 37-47 [facility] Comment on above: Performed By: #### L 100.0100, L500.2500 ####[facility] [address] [place], [address] Hemoglobin (Bld) [Mass/Vol] 10.5 g/dL Low 12.0-15.0 [facility] Comment on above: Performed By: #### L 100.0100, L500.2500 ####[facility] [address] [place], [address] IG% 0.200 Normal 0.0-0.9 [facility] Comment on above: Result Comment: IG% - Immature Granulocytes (promyelocytes, myelocytes andmetamyelocytes) > 1% indicates that a LEFT SHIFT is Present. Performed By: #### L 100.0100, L500.2500 ####[facility] [address] [place], [address] Lymphocytes/100 WBC (Bld) 24.4 % Normal 19-41 [facility] Comment on above: Performed By: #### L 100.0100, L500.2500 ####[facility] [address] [place], [address] MCH (RBC) [Entitic mass] 27.1 pg Normal 27.0-32.0 [facility] Comment on above: Performed By: #### L 100.0100, L500.2500 ####[facility] [address] [place], [address] MCHC (RBC) [Mass/Vol] 33.1 g/dL Normal 32-36 [facility] Comment on above: Performed By: #### L 100.0100, L500.2500 ####[facility] [address] [place], [address] MCV (RBC) [Entitic vol] 81.9 fL Normal 81-99 [facility] Comment on above: Performed By: #### L 100.0100, L500.2500 ####[facility] [address] [place], [address] Monocytes/100 WBC (Bld) 7.8 % Normal 0-10 [facility] Comment on above: Performed By: #### L 100.0100, L500.2500 ####[facility] [address] [place], [address] Neutrophils/100 WBC (Bld) 63.9 % Normal 47-70 [facility] Comment on above: Performed By: #### L 100.0100, L500.2500 ####[facility] [address] [place], [address] Nucleated RBC (Bld) [#/Vol] 0 10*3/uL Normal 0-5 [facility] Comment on above: Performed By: #### L 100.0100, L500.2500 ####[facility] [address] [place], [address] Platelet mean volume (Bld) [Entitic vol] 9.3 fL Normal 6.2-12.0 [facility] Comment on above: Performed By: #### L 100.0100, L500.2500 ####[facility] [address] [place], [address] Platelets (Bld) [#/Vol] 315 10*3/uL Normal 150-450 [facility] Comment on above: Performed By: #### L 100.0100, L500.2500 ####[facility] [address] [place], [address] RBC (Bld) [#/Vol] 3.87 10*6/uL Low 4.2-5.4 [facility] Comment on above: Performed By: #### L 100.0100, L500.2500 ####[facility] [address] [place], [address] RDW SD 43.3 fl Normal 35.1-43.9 [facility] Comment on above: Performed By: #### L 100.0100, L500.2500 ####[facility] [address] [place], [address] WBC (Bld) [#/Vol] 5.4 10*3/uL Normal 4.4-11.0 [facility] Comment on above: Performed By: #### L 100.0100, L500.2500 ####[facility] [address] [place], [address] Prothrombin Time w/INRon INR Coag (PPP) [Relative time] 1.8 {INR} Normal [facility] Comment on above: Performed By: #### L 300.3900 ####[facility] [address] [place], [address] PT Coag (PPP) [Time] 21.2 s High 11.7-14.9 [facility] Comment on above: Performed By: #### L 300.3900 ####[facility] [address] [place], [address] Basic Metabolic Profile (BMP )on 02-21-2025 Urea nitrogen [Mass/Vol] 2 mg/dL Low 4-19 [facility] Comment on above: Performed By: #### L 500.2500 ####[facility] [address] [place], [address] CBC W/Diff, Automatedon 01-26 Absolute Lymph 1.41 X10 3/uL Normal 0.83-4.51 [facility] Comment on above: Performed By: #### L 100.0100, L300.3900, L500.4050 ####[facility] [address] [place], [address] Absolute Neut 3.5 X10 3/uL Normal 2.0-7.7 [facility] Comment on above: Performed By: #### L 100.0100, L300.3900, L500.4050 ####[facility] [address] [place], [address] Basophils/100 WBC (Bld) 0.4 % Normal 0-1 [facility] Comment on above: Performed By: #### L 100.0100, L300.3900, L500.4050 ####[facility] [address] [place], [address] Eosinophils/100 WBC (Bld) 1.8 % Normal 0-5 [facility] Comment on above: Performed By: #### L 100.0100, L300.3900, L500.4050 ####[facility] [address] [place], [address] Erythrocyte distribution width (RBC) [Ratio] 14.3 % Normal 11.6-14.6 [facility] Comment on above: Performed By: #### L 100.0100, L300.3900, L500.4050 ####[facility] [address] [place], [address] Hematocrit (Bld) [Volume fraction] 32.9 % Low 37-47 [facility] Comment on above: Performed By: #### L 100.0100, L300.3900, L500.4050 ####[facility] [address] [place], [address] Hemoglobin (Bld) [Mass/Vol] 11.0 g/dL Low 12.0-15.0 [facility] Comment on above: Performed By: #### L 100.0100, L300.3900, L500.4050 ####[facility] [address] [place], [address] IG% 0.200 Normal 0.0-0.9 [facility] Comment on above: Result Comment: IG% - Immature Granulocytes (promyelocytes, myelocytes andmetamyelocytes) > 1% indicates that a LEFT SHIFT is Present. Performed By: #### L 100.0100, L300.3900, L500.4050 ####[facility] [address] [place], [address] Lymphocytes/100 WBC (Bld) 25.9 % Normal 19-41 [facility] Comment on above: Performed By: #### L 100.0100, L300.3900, L500.4050 ####[facility] [address] [place], [address] MCH (RBC) [Entitic mass] 27.4 pg Normal 27.0-32.0 [facility] Comment on above: Performed By: #### L 100.0100, L300.3900, L500.4050 ####[facility] [address] [place], [address] MCHC (RBC) [Mass/Vol] 33.4 g/dL Normal 32-36 [facility] Comment on above: Performed By: #### L 100.0100, L300.3900, L500.4050 ####[facility] [address] [place], [address] MCV (RBC) [Entitic vol] 82.0 fL Normal 81-99 [facility] Comment on above: Performed By: #### L 100.0100, L300.3900, L500.4050 ####[facility] [address] [place], [address] Monocytes/100 WBC (Bld) 7.5 % Normal 0-10 [facility] Comment on above: Performed By: #### L 100.0100, L300.3900, L500.4050 ####[facility] [address] [place], [address] Neutrophils/100 WBC (Bld) 64.2 % Normal 47-70 [facility] Comment on above: Performed By: #### L 100.0100, L300.3900, L500.4050 ####[facility] [address] [place], [address] Nucleated RBC (Bld) [#/Vol] 0 10*3/uL Normal 0-5 [facility] Comment on above: Performed By: #### L 100.0100, L300.3900, L500.4050 ####[facility] [address] [place], [address] Platelet mean volume (Bld) [Entitic vol] 9.5 fL Normal 6.2-12.0 [facility] Comment on above: Performed By: #### L 100.0100, L300.3900, L500.4050 ####[facility] [address] [place], [address] Platelets (Bld) [#/Vol] 322 10*3/uL Normal 150-450 [facility] Comment on above: Performed By: #### L 100.0100, L300.3900, L500.4050 ####[facility] [address] [place], [address] RBC (Bld) [#/Vol] 4.01 10*6/uL Low 4.2-5.4 [facility] Comment on above: Performed By: #### L 100.0100, L300.3900, L500.4050 ####[facility] [address] [place], [address] RDW SD 42.4 fl Normal 35.1-43.9 [facility] Comment on above: Performed By: #### L 100.0100, L300.3900, L500.4050 ####[facility] [address] [place], [address] WBC (Bld) [#/Vol] 5.5 10*3/uL Normal 4.4-11.0 [facility] Comment on above: Performed By: #### L 100.0100, L300.3900, L500.4050 ####[facility] [address] [place], [address] Comprehensive Metabolic Prof ilon 02-21-2025 Potassium [Moles/Vol] 2.1 mmol/L Invalid Interpretation Code 3.3-5.1 [facility] Comment on above: Result Comment: Crit ical Result(s) Called at: 05:08 02-21-25 TO YISSEL by:??SHEN CASE Results read back by same. AMENDED REPORT 02/21/25 0510 K previously reported as: 2.2 *L mmol/LCritical Result(s) Called at: 05:08 02-21-25 TO DAVID by:??SHEN CASE Results read back by same. Performed By: #### L 100.0100, L300.3900, L500.4050 ####[facility] [address] [place], [address] ENTERIC PATHOGEN PANEL STOOL on 02-21-2025 EP PANEL Normal [facility] Comment on above: Performed By: #### M 100.0605, M100.6796, M100.637 ####[facility] [address] [place], [address] Hepatitis Panel Acuteon 01-26 COMMENT Comment Normal . [facility] Comment on above: Result Comment: Not infected with HCV unless early or acute infection issuspected (which may be delayed in an immunocompromisedindividual), or other evidence exists to indicate HCVinfection.Performed at: - [facility] [id number] Director: Christian Alfaro PhD, Phone: [phone] Performed By: #### L 501.9520, L503.6550, L506.0200, L503.6030, L3000.0375 ####[facility] [address] [place], [address] HEP B CORE,IgM Negative Normal Negative [facility] Comment on above: Performed By: #### L 501.9520, L503.6550, L506.0200, L503.6030, L3000.0375 ####[facility] [address] [place], [address] HEP B SURF AG Negative Normal Negative [facility] Comment on above: Performed By: #### L 501.9520, L503.6550, L506.0200, L503.6030, L3000.0375 ####[facility] [address] [place], [address] HEP C VIRUS AB Non-Reactive Normal Non Reactive [facility] Comment on above: Performed By: #### L 501.9520, L503.6550, L506.0200, L503.6030, L3000.0375 ####[facility] [address] [place], [address] HEPATITIS A-IgM Negative Normal Negative [facility] Comment on above: Result Comment: A ne gative anti-HAV IgM result suggests no recent orcurrent HAV infection. Performed By: #### L 501.9520, L503.6550, L506.0200, L503.6030, L3000.0375 ####[facility] [address] [place], [address] Magnesiumon 02-21-2025 Magnesium [Mass/Vol] 1.8 mg/dL Normal 1.5-2.2 [facility] Comment on above: Order Comment: *ADD ON Performed By: #### L 501.2300, L501.5200 ####[facility] [address] [place], [address] Phosphoruson 02-21-2025 Phosphate [Mass/Vol] 3.7 mg/dL Normal 2.7-4.5 [facility] Comment on above: Order Comment: *ADD ON Performed By: #### L 501.2300, L501.5200 ####[facility] [address] [place], [address] Prothrombin Time w/INRon INR Coag (PPP) [Relative time] 1.6 {INR} Normal [facility] Comment on above: Performed By: #### L 100.0100, L300.3900, L500.4050 ####[facility] [address] [place], [address] PT Coag (PPP) [Time] 18.9 s High 11.7-14.9 [facility] Comment on above: Performed By: #### L 100.0100, L300.3900, L500.4050 ####[facility] [address] [place], [address] CBC W/Diff, Automatedon 08-2 Absolute Lymph 1.96 X10 3/uL Normal 0.83-4.51 [facility] Comment on above: Performed By: #### L 100.0100, L501.2300 ####[facility] [address] [place], [address] Absolute Neut 4.8 X10 3/uL Normal 2.0-7.7 [facility] Comment on above: Performed By: #### L 100.0100, L501.2300 ####[facility] [address] [place], [address] Basophils/100 WBC (Bld) 0.4 % Normal 0-1 [facility] Comment on above: Performed By: #### L 100.0100, L501.2300 ####[facility] [address] [place], [address] Eosinophils/100 WBC (Bld) 2.2 % Normal 0-5 [facility] Comment on above: Performed By: #### L 100.0100, L501.2300 ####[facility] [address] [place], [address] Erythrocyte distribution width (RBC) [Ratio] 14.3 % Normal 11.6-14.6 [facility] Comment on above: Performed By: #### L 100.0100, L501.2300 ####[facility] [address] [place], [address] Hematocrit (Bld) [Volume fraction] 35.1 % Low 37-47 [facility] Comment on above: Performed By: #### L 100.0100, L501.2300 ####[facility] [address] [place], [address] Hemoglobin (Bld) [Mass/Vol] 11.7 g/dL Low 12.0-15.0 [facility] Comment on above: Performed By: #### L 100.0100, L501.2300 ####[facility] [address] [place], [address] IG% 0.300 Normal 0.0-0.9 [facility] Comment on above: Result Comment: IG% - Immature Granulocytes (promyelocytes, myelocytes andmetamyelocytes) > 1% indicates that a LEFT SHIFT is Present. Performed By: #### L 100.0100, L501.2300 ####[facility] [address] [place], [address] Lymphocytes/100 WBC (Bld) 26.4 % Normal 19-41 [facility] Comment on above: Performed By: #### L 100.0100, L501.2300 ####[facility] [address] [place], [address] MCH (RBC) [Entitic mass] 27.1 pg Normal 27.0-32.0 [facility] Comment on above: Performed By: #### L 100.0100, L501.2300 ####[facility] [address] [place], [address] MCHC (RBC) [Mass/Vol] 33.3 g/dL Normal 32-36 [facility] Comment on above: Performed By: #### L 100.0100, L501.2300 ####[facility] [address] [place], [address] MCV (RBC) [Entitic vol] 81.3 fL Normal 81-99 [facility] Comment on above: Performed By: #### L 100.0100, L501.2300 ####[facility] [address] [place], [address] Monocytes/100 WBC (Bld) 5.9 % Normal 0-10 [facility] Comment on above: Performed By: #### L 100.0100, L501.2300 ####[facility] [address] [place], [address] Neutrophils/100 WBC (Bld) 64.8 % Normal 47-70 [facility] Comment on above: Performed By: #### L 100.0100, L501.2300 ####[facility] [address] [place], [address] Nucleated RBC (Bld) [#/Vol] 0 10*3/uL Normal 0-5 [facility] Comment on above: Performed By: #### L 100.0100, L501.2300 ####[facility] [address] [place], [address] Platelet mean volume (Bld) [Entitic vol] 9.3 fL Normal 6.2-12.0 [facility] Comment on above: Performed By: #### L 100.0100, L501.2300 ####[facility] [address] [place], [address] Platelets (Bld) [#/Vol] 340 10*3/uL Normal 150-450 [facility] Comment on above: Performed By: #### L 100.0100, L501.2300 ####[facility] [address] [place], [address] RBC (Bld) [#/Vol] 4.32 10*6/uL Normal 4.2-5.4 [facility] Comment on above: Performed By: #### L 100.0100, L501.2300 ####[facility] [address] [place], [address] RDW SD 42.0 fl Normal 35.1-43.9 [facility] Comment on above: Performed By: #### L 100.0100, L501.2300 ####[facility] [address] [place], [address] WBC (Bld) [#/Vol] 7.4 10*3/uL Normal 4.4-11.0 [facility] Comment on above: Performed By: #### L 100.0100, L501.2300 ####[facility] [address] [place], [address] CDIFF (PCR)on 02-20-2025 CDIFF Normal [facility] Comment on above: Performed By: #### M 100.0605, M100.6796, M100.637 ####[facility] [address] [place], [address] Comprehensive Metabolic Prof ilon 02-20-2025 Albumin [Mass/Vol] 3.0 g/dL Low 3.5-5.0 [facility] Comment on above: Performed By: #### L 300.3900, L501.5200, L500.4050 ####[facility] [address] [place], [address] Albumin/Globulin [Mass ratio] 1.1 {ratio} Normal 0.9-2.4 [facility] Comment on above: Performed By: #### L 300.3900, L501.5200, L500.4050 ####[facility] [address] [place], [address] ALK PHOS 154 U/L High 35-104 [facility] Comment on above: Performed By: #### L 300.3900, L501.5200, L500.4050 ####[facility] [address] [place], [address] ALT [Catalytic activity/Vol] 129 U/L High <=34 [facility] Comment on above: Performed By: #### L 300.3900, L501.5200, L500.4050 ####[facility] [address] [place], [address] AST [Catalytic activity/Vol] 288 U/L High <=31 [facility] Comment on above: Performed By: #### L 300.3900, L501.5200, L500.4050 ####[facility] [address] [place], [address] Bilirubin [Mass/Vol] 0.68 mg/dL Normal 0.00-1.30 [facility] Comment on above: Performed By: #### L 300.3900, L501.5200, L500.4050 ####[facility] [address] [place], [address] BUN/CRE 3.5 RATIO Low 10-20 [facility] Comment on above: Performed By: #### L 300.3900, L501.5200, L500.4050 ####[facility] [address] [place], [address] Calcium [Mass/Vol] 7.3 mg/dL Low 7.6-11.0 [facility] Comment on above: Performed By: #### L 300.3900, L501.5200, L500.4050 ####[facility] [address] [place], [address] Chloride [Moles/Vol] 109 mmol/L High 98-108 [facility] Comment on above: Performed By: #### L 300.3900, L501.5200, L500.4050 ####[facility] [address] [place], [address] CO2 [Moles/Vol] 20.7 mmol/L Low 21.0-32.0 [facility] Comment on above: Performed By: #### L 300.3900, L501.5200, L500.4050 ####[facility] [address] [place], [address] Creatinine [Mass/Vol] 0.84 mg/dL Normal 0.70-1.20 [facility] Comment on above: Performed By: #### L 300.3900, L501.5200, L500.4050 ####[facility] [address] [place], [address] ECRCL 99.18 ml/min Normal 50-250 [facility] Comment on above: Performed By: #### L 300.3900, L501.5200, L500.4050 ####[facility] [address] [place], [address] GAP 13 Normal 5-15 [facility] Comment on above: Performed By: #### L 300.3900, L501.5200, L500.4050 ####[facility] [address] [place], [address] GFR/1.73 sq M.predicted among non-blacks MDRD (S/P/Bld) [Vol rate/Area] 90 mL/min/{1.73_m2} Normal >60 [facility] Comment on above: Result Comment: mL/m in/1.73m2 CKD-EPI Creatinine Equation (2020) Performed By: #### L 300.3900, L501.5200, L500.4050 ####[facility] [address] [place], [address] Globulin (S) [Mass/Vol] 2.7 g/dL Normal 2.2-4.2 [facility] Comment on above: Performed By: #### L 300.3900, L501.5200, L500.4050 ####[facility] [address] [place], [address] Glucose [Mass/Vol] 100 mg/dL High 70-99 [facility] Comment on above: Performed By: #### L 300.3900, L501.5200, L500.4050 ####[facility] [address] [place], [address] Potassium [Moles/Vol] 2.1 mmol/L Invalid Interpretation Code 3.3-5.1 [facility] Comment on above: Result Comment: Crit ical Result(s) Called at: by: CLAUDIA GARZA??Resultsread back by same. Performed By: #### L 300.3900, L501.5200, L500.4050 ####[facility] [address] [place], [address] Sodium [Moles/Vol] 143 mmol/L Normal 133-145 [facility] Comment on above: Performed By: #### L 300.3900, L501.5200, L500.4050 ####[facility] [address] [place], [address] T PROT 5.7 g/dL Low 5.9-8.4 [facility] Comment on above: Performed By: #### L 300.3900, L501.5200, L500.4050 ####[facility] [address] [place], [address] Urea nitrogen [Mass/Vol] 3 mg/dL Low 4-19 [facility] Comment on above: Performed By: #### L 300.3900, L501.5200, L500.4050 ####[facility] [address] [place], [address] Folates,Serum (Folic Acid)on 02-20-2025 FOLATES,SERUM 13.60 ng/mL Normal 4.60-34.80 [facility] Comment on above: Order Comment: TY2 3 A Result Comment: Hemo lysis, Results will be affected, Requires Recollection. AMENDED REPORT 02/20/25 0009 FOLATES,SERUM previously reported as: 13.60 ng/mL Performed By: #### L 501.9520, L503.6550, L506.0200, L503.6030, L3000.0375 ####[facility] [address] [place], [address] Iron+Iron Binding Capacityon 02-20-2025 Iron [Mass/Vol] 68 ug/dL Normal 50-170 [facility] Comment on above: Performed By: #### L 501.9520, L503.6550, L506.0200, L503.6030, L3000.0375 ####[facility] [address] [place], [address] IRON SATURATION 23.0 Normal 13-59 [facility] Comment on above: Performed By: #### L 501.9520, L503.6550, L506.0200, L503.6030, L3000.0375 ####[facility] [address] [place], [address] TIBC 299 ug/dL Normal 250-450 [facility] Comment on above: Performed By: #### L 501.9520, L503.6550, L506.0200, L503.6030, L3000.0375 ####[facility] [address] [place], [address] UIBC 231 ug/dL Normal 228-428 [facility] Comment on above: Performed By: #### L 501.9520, L503.6550, L506.0200, L503.6030, L3000.0375 ####[facility] [address] [place], [address] L501.2276on 02-20-2025 Ionized Calcium 1.06 mmol/L Low 1.09-1.30 [facility] Comment on above: Performed By: #### L 501.2276 ####[facility] [address] [place], [address] Magnesiumon 02-20-2025 Magnesium [Mass/Vol] 2.0 mg/dL Normal 1.5-2.2 [facility] Comment on above: Performed By: #### L 300.3900, L501.5200, L500.4050 ####[facility] [address] [place], [address] Phosphoruson 02-20-2025 Phosphate [Mass/Vol] 3.6 mg/dL Normal 2.7-4.5 [facility] Comment on above: Performed By: #### L 100.0100, L501.2300 ####[facility] [address] [place], [address] Prothrombin Time w/INRon INR Coag (PPP) [Relative time] 1.5 {INR} Normal [facility] Comment on above: Performed By: #### L 300.3900, L501.5200, L500.4050 ####[facility] [address] [place], [address] PT Coag (PPP) [Time] 18.8 s High 11.7-14.9 [facility] Comment on above: Performed By: #### L 300.3900, L501.5200, L500.4050 ####[facility] [address] [place], [address] Stool Lactoferrin/WBCon 2 WBCST Normal [facility] Comment on above: Performed By: #### M 100.0605, M100.7096, M100.637 ####[facility] [address] [place], [address] Stool Occult Blood iFOBon STOB Negative Normal [facility] Comment on above: Performed By: #### M 100.7900 ####[facility] [address] [place], [address] Vitamin B12on 02-20-2025 Cobalamin (Vitamin B12) [Mass/Vol] 471 pg/mL Normal 180-914 [facility] Comment on above: Performed By: #### L 503.0106 ####[facility] [address] [place], [address] CBC W/Diff, Automatedon 01-26 Absolute Lymph 2.51 X10 3/uL Normal 0.83-4.51 [facility] Comment on above: Performed By: #### L 100.0100, L503.6005, L500.4050, L501.2450, L501.3620 ####[facility] [address] [place], [address] Absolute Neut 6.1 X10 3/uL Normal 2.0-7.7 [facility] Comment on above: Performed By: #### L 100.0100, L503.6005, L500.4050, L501.2450, L501.3620 ####[facility] [address] [place], [address] Basophils/100 WBC (Bld) 0.5 % Normal 0-1 [facility] Comment on above: Performed By: #### L 100.0100, L503.6005, L500.4050, L501.2450, L501.3620 ####[facility] [address] [place], [address] Eosinophils/100 WBC (Bld) 1.4 % Normal 0-5 [facility] Comment on above: Performed By: #### L 100.0100, L503.6005, L500.4050, L501.2450, L501.3620 ####[facility] [address] [place], [address] Erythrocyte distribution width (RBC) [Ratio] 14.3 % Normal 11.6-14.6 [facility] Comment on above: Performed By: #### L 100.0100, L503.6005, L500.4050, L501.2450, L501.3620 ####[facility] [address] [place], [address] Hematocrit (Bld) [Volume fraction] 38.8 % Normal 37-47 [facility] Comment on above: Performed By: #### L 100.0100, L503.6005, L500.4050, L501.2450, L501.3620 ####[facility] [address] [place], [address] Hemoglobin (Bld) [Mass/Vol] 13.0 g/dL Normal 12.0-15.0 [facility] Comment on above: Performed By: #### L 100.0100, L503.6005, L500.4050, L501.2450, L501.3620 ####[facility] [address] [place], [address] IG% 0.300 Normal 0.0-0.9 [facility] Comment on above: Result Comment: IG% - Immature Granulocytes (promyelocytes, myelocytes andmetamyelocytes) > 1% indicates that a LEFT SHIFT is Present. Performed By: #### L 100.0100, L503.6005, L500.4050, L501.2450, L501.3620 ####[facility] [address] [place], [address] Lymphocytes/100 WBC (Bld) 26.5 % Normal 19-41 [facility] Comment on above: Performed By: #### L 100.0100, L503.6005, L500.4050, L501.2450, L501.3620 ####[facility] [address] [place], [address] MCH (RBC) [Entitic mass] 27.3 pg Normal 27.0-32.0 [facility] Comment on above: Performed By: #### L 100.0100, L503.6005, L500.4050, L501.2450, L501.3620 ####[facility] [address] [place], [address] MCHC (RBC) [Mass/Vol] 33.5 g/dL Normal 32-36 [facility] Comment on above: Performed By: #### L 100.0100, L503.6005, L500.4050, L501.2450, L501.3620 ####[facility] [address] [place], [address] MCV (RBC) [Entitic vol] 81.5 fL Normal 81-99 [facility] Comment on above: Performed By: #### L 100.0100, L503.6005, L500.4050, L501.2450, L501.3620 ####[facility] [address] [place], [address] Monocytes/100 WBC (Bld) 7.3 % Normal 0-10 [facility] Comment on above: Performed By: #### L 100.0100, L503.6005, L500.4050, L501.2450, L501.3620 ####[facility] [address] [place], [address] Neutrophils/100 WBC (Bld) 64.0 % Normal 47-70 [facility] Comment on above: Performed By: #### L 100.0100, L503.6005, L500.4050, L501.2450, L501.3620 ####[facility] [address] [place], [address] Nucleated RBC (Bld) [#/Vol] 0 10*3/uL Normal 0-5 [facility] Comment on above: Performed By: #### L 100.0100, L503.6005, L500.4050, L501.2450, L501.3620 ####[facility] [address] [place], [address] Platelet mean volume (Bld) [Entitic vol] 9.1 fL Normal 6.2-12.0 [facility] Comment on above: Performed By: #### L 100.0100, L503.6005, L500.4050, L501.2450, L501.3620 ####[facility] [address] [place], [address] Platelets (Bld) [#/Vol] 365 10*3/uL Normal 150-450 [facility] Comment on above: Performed By: #### L 100.0100, L503.6005, L500.4050, L501.2450, L501.3620 ####[facility] [address] [place], [address] RBC (Bld) [#/Vol] 4.76 10*6/uL Normal 4.2-5.4 [facility] Comment on above: Performed By: #### L 100.0100, L503.6005, L500.4050, L501.2450, L501.3620 ####[facility] [address] [place], [address] RDW SD 42.4 fl Normal 35.1-43.9 [facility] Comment on above: Performed By: #### L 100.0100, L503.6005, L500.4050, L501.2450, L501.3620 ####[facility] [address] [place], [address] WBC (Bld) [#/Vol] 9.5 10*3/uL Normal 4.4-11.0 [facility] Comment on above: Performed By: #### L 100.0100, L503.6005, L500.4050, L501.2450, L501.3620 ####[facility] [address] [place], [address] CPK Total, Creatine Kinaseon 02-19-2025 CPK TOTAL 700 U/L High 24-195 [facility] Comment on above: Performed By: #### L 100.0100, L503.6005, L500.4050, L501.2450, L501.3620 ####[facility] [address] [place], [address] CTA Abd w/Runoff W/WO Contra ston 02-19-2025 CTA Abd w/Runoff W/WO Contrast Normal [facility] Comprehensive Metabolic Prof ilon 02-19-2025 Potassium [Moles/Vol] 2.1 mmol/L Invalid Interpretation Code 3.3-5.1 [facility] Comment on above: Result Comment: Crit ical Result(s) Called MMARTIN at: 1934 by:SARBJIT??Results read back by same.Critical Result(s) Called at: by:??Results read back bysame. AMENDED REPORT 02/19/251953 K previously reported as: 2.1 *L mmol/LCritical Result(s) Called MMARTIN at: 1934 by:SARBJIT??Results read back by same. Performed By: #### L 100.0100, L503.6005, L500.4050, L501.2450, L501.3620 ####[facility] [address] [place], [address] Emergency Department Summary on 02-19-2025 Emergency Department Summary Normal [facility] Ferritinon 02-19-2025 Ferritin [Mass/Vol] 47 ng/mL Normal 22-378 [facility] Comment on above: Performed By: #### L 501.9520, L503.6550, L506.0200, L503.6030, L3000.0375 ####[facility] [address] [place], [address] H AND P Exam - Hospitaliston 02-19-2025 H&P Exam - Hospitalist Normal [facility] Lactic Acidon 02-19-2025 Lactate [Moles/Vol] 1.4 mmol/L Normal 0.0-2.0 [facility] Comment on above: Performed By: #### L 503.6005 ####[facility] [address] [place], [address] Lactate [Moles/Vol] 2.3 mmol/L Invalid Interpretation Code 0.0-2.0 [facility] Comment on above: Order Comment: Y Result Comment: Crit ical Result(s) Called MMARTIN at: 1934 by:SARBJIT??Results read back by same. Performed By: #### L 100.0100, L503.6005, L500.4050, L501.2450, L501.3620 ####[facility] [address] [place], [address] Lipaseon 02-19-2025 Lipase [Catalytic activity/Vol] 12 U/L Low 13-75 [facility] Comment on above: Result Comment: Plesameer damon note:LIPASE revised reference range effective 22.New Lipase methodology. Expected to produce lower valuesthan the previous assay method.NEW Reference Range: 13 - 75 U/L Performed By: #### L 100.0100, L503.6005, L500.4050, L501.2450, L501.3620 ####[facility] [address] [place], [address] Magnesiumon 02-19-2025 Magnesium [Mass/Vol] 0.8 mg/dL Invalid Interpretation Code 1.5-2.2 [facility] Comment on above: Result Comment: Crit ical Result(s) Called ALAMMERS at: 2117 by:SARBJIT??Results read back by same. Performed By: #### L 501.5200 ####[facility] [address] [place], [address] Partial Thromboplast Timeon 02-19-2025 aPTT Coag (Bld) [Time] 30.6 s Normal 24.1-36.2 [facility] Comment on above: Performed By: #### L 300.3900, L300.4310 ####[facility] [address] [place], [address] ,Serum,hCG Quali.on 02-19-2025 HCG, SERUM QUAL Negative Normal [facility] Comment on above: Performed By: #### L 700.6800 ####[facility] [address] [place], [address] Prothrombin Time w/INRon INR Coag (PPP) [Relative time] 1.4 {INR} Normal [facility] Comment on above: Performed By: #### L 300.3900, L300.4310 ####[facility] [address] [place], [address] PT Coag (PPP) [Time] 17.9 s High 11.7-14.9 [facility] Comment on above: Performed By: #### L 300.3900, L300.4310 ####[facility] [address] [place], [address] Thyroid Stim Hormone (TSH)on 02-19-2025 TSH 2.560 uIU/mL Normal 0.300-4.200 [facility] Comment on above: Performed By: #### L 501.9520, L503.6550, L506.0200, L503.6030, L3000.0375 ####[facility] [address] [place], [address] Urinalysis, Completeon 02-19 EPI,SQUAMOUS 0-5 SEEN Normal 5-10 [facility] Comment on above: Order Comment: CLEAN CATCH Performed By: #### L 400.0001 ####[facility] [address] [place], [address] WBC 0-5 SEEN Normal 0-5 [facility] Comment on above: Order Comment: CLEAN CATCH Performed By: #### L 400.0001 ####[facility] [address] [place], [address] BACTERIA 0 SEEN Normal None Seen [facility] Comment on above: Order Comment: CLEAN CATCH Performed By: #### L 400.0001 ####[facility] [address] [place], [address] Mucus Ql (Urine sed) 0 SEEN Normal [facility] Comment on above: Order Comment: CLEAN CATCH Performed By: #### L 400.0001 ####[facility] [address] [place], [address] RBC 0 SEEN Normal 0-5 [facility] Comment on above: Order Comment: CLEAN CATCH Performed By: #### L 400.0001 ####[facility] [address] [place], [address] BACTERIA Normal None Seen [facility] Comment on above: Order Comment: COLLE CTOR TO SPECIFY Result Comment: DUPL ICATE ORDER Performed By: #### L 400.0001 ####[facility] [address] [place], [address] BILIRUBIN URINE Normal Negative [facility] Comment on above: Order Comment: COLLE CTOR TO SPECIFY Result Comment: DUPL ICATE ORDER Performed By: #### L 400.0001 ####[facility] [address] [place], [address] Clarity (U) Normal Clear [facility] Comment on above: Order Comment: COLLE CTOR TO SPECIFY Result Comment: DUPL ICATE ORDER Performed By: #### L 400.0001 ####[facility] [address] [place], [address] Color (U) Normal Yellow [facility] Comment on above: Order Comment: COLLE CTOR TO SPECIFY Result Comment: DUPL ICATE ORDER Performed By: #### L 400.0001 ####[facility] [address] [place], [address] EPI,SQUAMOUS Normal 5-10 [facility] Comment on above: Order Comment: COLLE CTOR TO SPECIFY Result Comment: DUPL ICATE ORDER Performed By: #### L 400.0001 ####[facility] [address] [place], [address] GLUCOSE, UR Normal Normal [facility] Comment on above: Order Comment: COLLE CTOR TO SPECIFY Result Comment: DUPL ICATE ORDER Performed By: #### L 400.0001 ####[facility] [address] [place], [address] KETONE UR Normal Negative [facility] Comment on above: Order Comment: COLLE CTOR TO SPECIFY Result Comment: DUPL ICATE ORDER Performed By: #### L 400.0001 ####[facility] [address] [place], [address] LEUK ESTERASE Normal Negative [facility] Comment on above: Order Comment: COLLE CTOR TO SPECIFY Result Comment: DUPL ICATE ORDER Performed By: #### L 400.0001 ####[facility] [address] [place], [address] Mucus Ql (Urine sed) Normal [facility] Comment on above: Order Comment: COLLE CTOR TO SPECIFY Result Comment: DUPL ICATE ORDER Performed By: #### L 400.0001 ####[facility] [address] [place], [address] Nitrite Ql (U) Normal Negative [facility] Comment on above: Order Comment: COLLE CTOR TO SPECIFY Result Comment: DUPL ICATE ORDER Performed By: #### L 400.0001 ####[facility] [address] [place], [address] OCCULT BLOOD-UR Normal Negative [facility] Comment on above: Order Comment: COLLE CTOR TO SPECIFY Result Comment: DUPL ICATE ORDER Performed By: #### L 400.0001 ####[facility] [address] [place], [address] pH UR Normal 5.0 - 8.0 [facility] Comment on above: Order Comment: COLLE CTOR TO SPECIFY Result Comment: DUPL ICATE ORDER Performed By: #### L 400.0001 ####[facility] [address] [place], [address] PROT DIPSTX Normal Negative [facility] Comment on above: Order Comment: COLLE CTOR TO SPECIFY Result Comment: DUPL ICATE ORDER Performed By: #### L 400.0001 ####[facility] [address] [place], [address] RBC Normal 0-5 [facility] Comment on above: Order Comment: COLLE CTOR TO SPECIFY Result Comment: DUPL ICATE ORDER Performed By: #### L 400.0001 ####[facility] [address] [place], [address] SP.GR. DIPSTX Normal 1.002-1.030 [facility] Comment on above: Order Comment: COLLE CTOR TO SPECIFY Result Comment: DUPL ICATE ORDER Performed By: #### L 400.0001 ####[facility] [address] [place], [address] UR Preservative Normal [facility] Comment on above: Order Comment: COLLE CTOR TO SPECIFY Result Comment: DUPL ICATE ORDER Performed By: #### L 400.0001 ####[facility] [address] [place], [address] UROBILI Normal Normal [facility] Comment on above: Order Comment: COLLE CTOR TO SPECIFY Result Comment: DUPL ICATE ORDER Performed By: #### L 400.0001 ####[facility] [address] [place], [address] WBC Normal 0-5 [facility] Comment on above: Order Comment: COLLE CTOR TO SPECIFY Result Comment: DUPL ICATE ORDER Performed By: #### L 400.0001 ####[facility] [address] [place] [id number] Urine Drug Screen (VISTA)on 02-19-2025 AMPHETAMINES Negative Normal <1000 ng/mL [facility] Comment on above: Performed By: #### L 505.5000 ####[facility] [address] [facility] [address] BARBITIURATES Negative Normal < 200 ng/mL [facility] Comment on above: Performed By: #### L 505.5000 ####[facility] [address] [place] [id number] BENZODIAZIPINE Positive Normal < 200 ng/mL [facility] Comment on above: Result Comment: If c onfirmation testing is needed, a separate order will berequired to send out testing to the reference laboratory. Performed By: #### L 505.5000 ####[facility] [address] [place] [id number] BUP Ur Drug Scr Negative Normal < 200 ng/mL [facility] Comment on above: Performed By: #### L 505.5000 ####[facility] [address] [place] [address] COCAINE Negative Normal < 300 ng/mL [facility] Comment on above: Performed By: #### L 505.5000 ####[facility] [address] [place] [id number] Fentanyl Negative Normal <5 ng/mL [facility] Comment on above: Result Comment: CONF [...] testmnemonic: [facility]CA Performed By: #### L 505.5000 ####[facility] [address] [place], [address] METHADONE Negative Normal < 300 ng/mL [facility] Comment on above: Performed By: #### L 505.5000 ####[facility] [address] [facility] [address] OPIATES Negative Normal < 300 ng/mL [facility] Comment on above: Performed By: #### L 505.5000 ####[facility] [address] [place], [address] OXYCODONE Negative Normal < 100 ng/mL [facility] Comment on above: Performed By: #### L 505.5000 ####[facility] [address] [place], [address] PCP Negative Normal < 25 ng/mL [facility] Comment on above: Performed By: #### L 505.5000 ####[facility] [address] [place], [address] THC Negative Normal < 50 ng/mL [facility] Comment on above: Performed By: #### L 505.5000 ####[facility] [address] [place], [address] Wound Ctr History AND Physic dorothy 01-17-2025 Wound Ctr History & Physical Normal [facility] L3410.9994on 01-15-2025 [facility] Misc. 2 COMMENT Normal . [facility] Comment on above: Order Comment: 93106 0SELENIUM - ROYAL BLUE - PLASMA Result Comment: Test Ordered: 383492 Selenium, Serum/PlasmaTest(s) 889628-Jvkyetyb, Serum/Plasmawas developed and its performance characteristicsdetermined by [facility]. It has not been cleared or approvedby the Food and Drug Administration.Selenium, Serum/Plasma 100 ug/L Reference Range: 93-198Performed at: [facility] [address] [place], [place] [id number] Director: Kim Mayorga MD, Phone: [phone] at: [facility] [place], [place] [address] Director: Christian Alfaro PhD, Phone: [phone] Performed By: #### L 100.0500, L500.4050, L501.2300, L501.5000, L501.5200, L501.6710, L503.0106, L506.1001, L3300.0100, L3300.8200, L3300.9900, L3410.9992, L7400.3000, L3410.9996, L3410.9994 ####[facility] [address] [place], [address] L3410.9996on 01-13-2025 [facility] COM[facility] Normal . [facility] Comment on above: Order Comment: 45764 9VITAMIN A E - SERUM Result Comment: Test Ordered: 143100 Vitamin A and ETest(s) 752605-Itzpzfz E(Alpha Tocopherol); 478066-Wsanpcv E(Gamma Tocopherol)was developed and its performance characteristicsdetermined [...] gamma-tocopheroldetermined from National Health and Nutrition ExaminationSurvey, 8529-0956. Individuals with alpha-tocopherol levelsless than 5.0 mg/L are considered vitamin E deficient.Performed at: [address] [id number] Director: Kim Mayorga MD, Phone: [phone] at: [address] [id number] Director: Christian Alfaro PhD, Phone: [phone] Performed By: #### L 100.0500, L500.4050, L501.2300, L501.5000, L501.5200, L501.6710, L503.0106, L506.1001, L3300.0100, L3300.8200, L3300.9900, L3410.9992, L7400.3000, L3410.9996, L3410.9994 ####[facility] [address] [place], [address] Methylmalonic Acid [facility] METHYLMAL ACID 239 nmol/L Normal 0-378 [facility] Comment on above: Order Comment: Test( s) 206382-Fdthwtzsgmruh Acid, Serumwas developed and its performance characteristicsdetermined by [facility] [place]. It has not been cleared or approvedby the Food and Drug Administration. Result Comment: Perf ormed at: [address] [id number] Director: Kim Mayorga MD, Phone: [phone] Performed By: #### L 100.0500, L500.4050, L501.2300, L501.5000, L501.5200, L501.6710, L503.0106, L506.1001, L3300.0100, L3300.8200, L3300.9900, L3410.9992, L7400.3000, L3410.9996, L3410.9994 ####[facility] [address] [place], [address] Copper, Serum or Plasmaon COPPER, SERUM 131 ug/dL Normal 80-158 [facility] Comment on above: Order Comment: Test( s) 773640-Jxbawrj B6was developed and its performance characteristicsdetermined by [facility]. It has not been cleared or approvedby the Food and Drug Administration. Result Comment: Dete ction Limit = 5 Performed By: #### L 100.0500, L500.4050, L501.2300, L501.5000, L501.5200, L501.6710, L503.0106, L506.1001, L3300.0100, L3300.8200, L3300.9900, L3410.9992, L7400.3000, L3410.9996, L3410.9994 ####[facility] [address] [place], [place], [address] L3300.8200on 01-12-2025 VITAMIN B6 1.2 ug/L Low 3.4-65.2 [facility] Comment on above: Order Comment: Test( s) 436242-Oekjgas B6was developed and its performance characteristicsdetermined by [facility]. It has not been cleared or approvedby the Food and Drug Administration. Result Comment: Defi ciency: <3.4 Marginal: 3.4 - 5.1 Adequate: >5.1 Performed By: #### L 100.0500, L500.4050, L501.2300, L501.5000, L501.5200, L501.6710, L503.0106, L506.1001, L3300.0100, L3300.8200, L3300.9900, L3410.9992, L7400.3000, L3410.9996, L3410.9994 ####[facility] [address] [place], [place], [address] L3410.9992on 01-12-2025 [facility] Misc. COMMENT Normal . [facility] Comment on above: Order Comment: 94577 5WB MANGANESE - ROYAL BLUE - WB Result Comment: Test Ordered: 008086 Manganese, BloodTest(s) 735901-Wsuwbyjex, Bloodwas developed and its performance characteristicsdetermined by [facility]. It has not been cleared or approvedby the Food and Drug Administration.Manganese, Blood 8.8 ug/L [facility] Reference Range: 8.0-18.7Performed at: [facility], [place], [place] [id number] Director: Wendy Fowler MD, Phone: [phone] at: [address] [id number] Director: Christian Alfaro PhD, Phone: [phone] Performed By: #### L 100.0500, L500.4050, L501.2300, L501.5000, L501.5200, L501.6710, L503.0106, L506.1001, L3300.0100, L3300.8200, L3300.9900, L3410.9992, L7400.3000, L3410.9996, L3410.9994 ####[facility] [address] [place], [address] Zinc, Plasma or Serumon 12-25 ZINC,PLASMA/SER 71 ug/dL Normal 44-115 [facility] Comment on above: Order Comment: Test( s) 470166-Usfcfum B6was developed and its performance characteristicsdetermined by [facility]. It has not been cleared or approvedby the Food and Drug Administration. Result Comment: Dete ction Limit = 5Performed at: [address] [id number] Director: Kim Mayorga MD, Phone: [phone] Performed By: #### L 100.0500, L500.4050, L501.2300, L501.5000, L501.5200, L501.6710, L503.0106, L506.1001, L3300.0100, L3300.8200, L3300.9900, L3410.9992, L7400.3000, L3410.9996, L3410.9994 ####[facility] [address] [place], [address] Basic metabolic 2000 panelon 01-11-2025 Anion gap [Moles/Vol] 16 mmol/L High 8 - 15 mmol/L [facility] Calcium [Mass/Vol] 9.6 mg/dL 8.5 - 10. 2 mg/dL [facility] Chloride [Moles/Vol] 104 mmol/L 98 - 107 mmol/L [facility] CO2 [Moles/Vol] 21 mmol/L Low 22 - 30 mmol/L [facility] Creatinine [Mass/Vol] 0.91 mg/dL 0.58 - 0.96 mg/dL [facility] GFR/1.73 sq M.predicted among non-blacks MDRD (S/P/Bld) [Vol rate/Area] 81 mL/min/{1.73_m2} - PINF [facility] Comment on above: Estimated Glomerular Filtration Rate [...] [Mass/Vol] 99 mg/dL 74 - 99 mg/dL [facility] Comment on above: The [place] Diabete s Association (ADA) provides guidance for [...] Standards of Medical Care in Diabetes 2016, [place] Diabetes Association. Diabetes Care. 2016.39(Suppl 1). Interpretation and review of laboratory results Abnormal [facility] Potassium [Moles/Vol] 3.4 mmol/L Low 3.7 - 5.1 mmol/L [facility] Sodium [Moles/Vol] 141 mmol/L 136 - 144 mmol/L [facility] Urea nitrogen [Mass/Vol] 17 mg/dL 7 - 21 mg/dL [facility] CBC W Auto Differential pane l (Bld)on 01-10-2025 Basophils (Bld) [#/Vol] 0.04 10*3/uL [facility] Basophils/100 WBC (Bld) 0.5 % [facility] Differential cell count method Nom (Bld) Auto [facility] Eosinophils (Bld) [#/Vol] 0.16 10*3/uL [facility] Eosinophils/100 WBC (Bld) 2 % [facility] Erythrocyte distribution width (RBC) [Ratio] 16 % High 11.5 - 15.0 % [facility] Hematocrit (Bld) [Volume fraction] 37.7 % 36.0 - 46.0 % [facility] Hemoglobin (Bld) [Mass/Vol] 12.2 g/dL 11.5 - 15.5 g/dL [facility] Immature granulocytes (Bld) [#/Vol] 0.03 10*3/uL [facility] Immature granulocytes/100 WBC (Bld) 0.4 % [facility] Interpretation and review of laboratory results Abnormal [facility] Lymphocytes (Bld) [#/Vol] 2.59 10*3/uL [facility] Lymphocytes/100 WBC (Bld) 32.4 % [facility] MCH (RBC) [Entitic mass] 27 pg 26.0 - 34.0 pg [facility] MCHC (RBC) [Mass/Vol] 32.4 g/dL 30.5 - 36.0 g/dL [facility] MCV (RBC) [Entitic vol] 83.4 fL 80.0 - 100.0 fL [facility] Monocytes (Bld) [#/Vol] 0.63 10*3/uL [facility] Monocytes/100 WBC (Bld) 7.9 % [facility] Neutrophils (Bld) [#/Vol] 4.55 10*3/uL [facility] Neutrophils/100 WBC (Bld) 56.8 % [facility] Nucleated RBC (Bld) [#/Vol] [facility] Nucleated RBC/100 WBC (Bld) [Ratio] 0 % /100 WBC [facility] Platelet mean volume (Bld) [Entitic vol] 10.1 fL 9.0 - 12.7 fL [facility] Platelets (Bld) [#/Vol] 332 10*3/uL [facility] RBC (Bld) [#/Vol] 4.52 10*6/uL 3.90 - 5.2 0 m/uL [facility] WBC (Bld) [#/Vol] 8 10*3/uL [facility] PT panel Coag (PPP)on 2024 INR Coag (PPP) [Relative time] 1.1 {INR} 0.9 - 1.3 [facility] Comment on above: Vitamin K Antagonist (VKA) Therapeutic Range: INR 2 to 3 (Target INR of 2.5) Note: For patients treated with VKA drugs, such as warfarin, the [place] [employer] 2012 Guideline recommends [...] Interpretation and review of laboratory results Normal [facility] PT Coag (PPP) [Time] 11.4 s [facility] CBC-Complete Blood Cnt No Di ffon 01-08-2025 Erythrocyte distribution width (RBC) [Ratio] 16.0 % High 11.6-14.6 [facility] Comment on above: Performed By: #### L 100.0500, L500.4050, L501.2300, L501.5000, L501.5200, L501.6710, L503.0106, L506.1001, L3300.0100, L3300.8200, L3300.9900, L3410.9992, L7400.3000, L3410.9996, L3410.9994 ####[facility] [address] [place], [place], [address] Hematocrit (Bld) [Volume fraction] 35.9 % Low 37-47 [facility] Comment on above: Performed By: #### L 100.0500, L500.4050, L501.2300, L501.5000, L501.5200, L501.6710, L503.0106, L506.1001, L3300.0100, L3300.8200, L3300.9900, L3410.9992, L7400.3000, L3410.9996, L3410.9994 ####[facility] [address] [place], [place], [address] Hemoglobin (Bld) [Mass/Vol] 11.9 g/dL Low 12.0-15.0 [facility] Comment on above: Performed By: #### L 100.0500, L500.4050, L501.2300, L501.5000, L501.5200, L501.6710, L503.0106, L506.1001, L3300.0100, L3300.8200, L3300.9900, L3410.9992, L7400.3000, L3410.9996, L3410.9994 ####[facility] [address] [place], [address] MCH (RBC) [Entitic mass] 27.1 pg Normal 27.0-32.0 [facility] Comment on above: Performed By: #### L 100.0500, L500.4050, L501.2300, L501.5000, L501.5200, L501.6710, L503.0106, L506.1001, L3300.0100, L3300.8200, L3300.9900, L3410.9992, L7400.3000, L3410.9996, L3410.9994 ####[facility] [address] [place], [place], [address] MCHC (RBC) [Mass/Vol] 33.1 g/dL Normal 32-36 [facility] Comment on above: Performed By: #### L 100.0500, L500.4050, L501.2300, L501.5000, L501.5200, L501.6710, L503.0106, L506.1001, L3300.0100, L3300.8200, L3300.9900, L3410.9992, L7400.3000, L3410.9996, L3410.9994 ####[facility] [address] [place], [place], [address] MCV (RBC) [Entitic vol] 81.8 fL Normal 81-99 [facility] Comment on above: Performed By: #### L 100.0500, L500.4050, L501.2300, L501.5000, L501.5200, L501.6710, L503.0106, L506.1001, L3300.0100, L3300.8200, L3300.9900, L3410.9992, L7400.3000, L3410.9996, L3410.9994 ####[facility] [address] [place], [address] Platelet mean volume (Bld) [Entitic vol] 9.7 fL Normal 6.2-12.0 [facility] Comment on above: Performed By: #### L 100.0500, L500.4050, L501.2300, L501.5000, L501.5200, L501.6710, L503.0106, L506.1001, L3300.0100, L3300.8200, L3300.9900, L3410.9992, L7400.3000, L3410.9996, L3410.9994 ####[facility] [address] [place], [address] Platelets (Bld) [#/Vol] 257 10*3/uL Normal 150-450 [facility] Comment on above: Performed By: #### L 100.0500, L500.4050, L501.2300, L501.5000, L501.5200, L501.6710, L503.0106, L506.1001, L3300.0100, L3300.8200, L3300.9900, L3410.9992, L7400.3000, L3410.9996, L3410.9994 ####[facility] [address] [place], [place], [phone](958) RBC (Bld) [#/Vol] 4.39 10*6/uL Normal 4.2-5.4 [facility] Comment on above: Performed By: #### L 100.0500, L500.4050, L501.2300, L501.5000, L501.5200, L501.6710, L503.0106, L506.1001, L3300.0100, L3300.8200, L3300.9900, L3410.9992, L7400.3000, L3410.9996, L3410.9994 ####[facility] [address] [place], [place], [phone](058) RDW SD 47.8 fl High 35.1-43.9 [facility] Comment on above: Performed By: #### L 100.0500, L500.4050, L501.2300, L501.5000, L501.5200, L501.6710, L503.0106, L506.1001, L3300.0100, L3300.8200, L3300.9900, L3410.9992, L7400.3000, L3410.9996, L3410.9994 ####[facility] [address] [place], [place], [phone](672) WBC (Bld) [#/Vol] 6.3 10*3/uL Normal 4.4-11.0 [place] [facility] Comment on above: Performed By: #### L 100.0500, L500.4050, L501.2300, L501.5000, L501.5200, L501.6710, L503.0106, L506.1001, L3300.0100, L3300.8200, L3300.9900, L3410.9992, L7400.3000, L3410.9996, L3410.9994 ####[facility] [address] [place], [place], [id number] CRPon 01-08-2025 C-REACTIVE PROT 16.50 mg/L High 0.0-3.0 [facility] Comment on above: Performed By: #### L 100.0500, L500.4050, L501.2300, L501.5000, L501.5200, L501.6710, L503.0106, L506.1001, L3300.0100, L3300.8200, L3300.9900, L3410.9992, L7400.3000, L3410.9996, L3410.9994 ####[facility] [address] [place], [address] Comprehensive Metabolic Prof ilon 01-08-2025 Albumin [Mass/Vol] 3.5 g/dL Normal 3.5-5.0 [facility] Comment on above: Performed By: #### L 100.0500, L500.4050, L501.2300, L501.5000, L501.5200, L501.6710, L503.0106, L506.1001, L3300.0100, L3300.8200, L3300.9900, L3410.9992, L7400.3000, L3410.9996, L3410.9994 ####[facility] [address] [place], [place], [phone] Albumin/Globulin [Mass ratio] 0.9 {ratio} Normal 0.9-2.4 [facility] Comment on above: Performed By: #### L 100.0500, L500.4050, L501.2300, L501.5000, L501.5200, L501.6710, L503.0106, L506.1001, L3300.0100, L3300.8200, L3300.9900, L3410.9992, L7400.3000, L3410.9996, L3410.9994 ####[facility] [address] [place], [address] ALK PHOS 141 U/L High 35-104 [facility] Comment on above: Performed By: #### L 100.0500, L500.4050, L501.2300, L501.5000, L501.5200, L501.6710, L503.0106, L506.1001, L3300.0100, L3300.8200, L3300.9900, L3410.9992, L7400.3000, L3410.9996, L3410.9994 ####[facility] [address] [place], [address] ALT [Catalytic activity/Vol] 16 U/L Normal <=34 [facility] Comment on above: Performed By: #### L 100.0500, L500.4050, L501.2300, L501.5000, L501.5200, L501.6710, L503.0106, L506.1001, L3300.0100, L3300.8200, L3300.9900, L3410.9992, L7400.3000, L3410.9996, L3410.9994 ####[facility] [address] [place], [address] AST [Catalytic activity/Vol] 18 U/L Normal <=31 [facility] Comment on above: Performed By: #### L 100.0500, L500.4050, L501.2300, L501.5000, L501.5200, L501.6710, L503.0106, L506.1001, L3300.0100, L3300.8200, L3300.9900, L3410.9992, L7400.3000, L3410.9996, L3410.9994 ####[facility] [address] [place], [place], [id number] Bilirubin [Mass/Vol] 0.44 mg/dL Normal 0.00-1.30 [facility] Comment on above: Performed By: #### L 100.0500, L500.4050, L501.2300, L501.5000, L501.5200, L501.6710, L503.0106, L506.1001, L3300.0100, L3300.8200, L3300.9900, L3410.9992, L7400.3000, L3410.9996, L3410.9994 ####[facility] [address] [facility] [place], [place], [phone] BUN/CRE 17.3 RATIO Normal 10-20 [facility] Comment on above: Performed By: #### L 100.0500, L500.4050, L501.2300, L501.5000, L501.5200, L501.6710, L503.0106, L506.1001, L3300.0100, L3300.8200, L3300.9900, L3410.9992, L7400.3000, L3410.9996, L3410.9994 ####[facility] [address] [facility] [place], [place], [phone] Calcium [Mass/Vol] 9.0 mg/dL Normal 7.6-11.0 [facility] Comment on above: Performed By: #### L 100.0500, L500.4050, L501.2300, L501.5000, L501.5200, L501.6710, L503.0106, L506.1001, L3300.0100, L3300.8200, L3300.9900, L3410.9992, L7400.3000, L3410.9996, L3410.9994 ####[facility] [address] [place], [place], [phone] Chloride [Moles/Vol] 101 mmol/L Normal 98-108 [facility] Comment on above: Performed By: #### L 100.0500, L500.4050, L501.2300, L501.5000, L501.5200, L501.6710, L503.0106, L506.1001, L3300.0100, L3300.8200, L3300.9900, L3410.9992, L7400.3000, L3410.9996, L3410.9994 ####[facility] [address] [place], [place], [id number] CO2 [Moles/Vol] 19.2 mmol/L Low 21.0-32.0 [facility] Comment on above: Performed By: #### L 100.0500, L500.4050, L501.2300, L501.5000, L501.5200, L501.6710, L503.0106, L506.1001, L3300.0100, L3300.8200, L3300.9900, L3410.9992, L7400.3000, L3410.9996, L3410.9994 ####[facility] [address] [place], [address] Creatinine [Mass/Vol] 0.99 mg/dL Normal 0.70-1.20 [facility] Comment on above: Performed By: #### L 100.0500, L500.4050, L501.2300, L501.5000, L501.5200, L501.6710, L503.0106, L506.1001, L3300.0100, L3300.8200, L3300.9900, L3410.9992, L7400.3000, L3410.9996, L3410.9994 ####[facility] [address] [place], [place], [phone] GAP 17 High 5-15 [facility] Comment on above: Performed By: #### L 100.0500, L500.4050, L501.2300, L501.5000, L501.5200, L501.6710, L503.0106, L506.1001, L3300.0100, L3300.8200, L3300.9900, L3410.9992, L7400.3000, L3410.9996, L3410.9994 ####[facility] [address] [place], [address] GFR/1.73 sq M.predicted among non-blacks MDRD (S/P/Bld) [Vol rate/Area] 73 mL/min/{1.73_m2} Normal >60 [facility] Comment on above: Result Comment: mL/m in/1.73m2 CKD-EPI Creatinine Equation (2020) Performed By: #### L 100.0500, L500.4050, L501.2300, L501.5000, L501.5200, L501.6710, L503.0106, L506.1001, L3300.0100, L3300.8200, L3300.9900, L3410.9992, L7400.3000, L3410.9996, L3410.9994 ####[facility] [address] [place], [address] Globulin (S) [Mass/Vol] 4.0 g/dL Normal 2.2-4.2 [facility] Comment on above: Performed By: #### L 100.0500, L500.4050, L501.2300, L501.5000, L501.5200, L501.6710, L503.0106, L506.1001, L3300.0100, L3300.8200, L3300.9900, L3410.9992, L7400.3000, L3410.9996, L3410.9994 ####[facility] [address] [place], [place], [phone] Glucose [Mass/Vol] 148 mg/dL High 70-99 [facility] Comment on above: Performed By: #### L 100.0500, L500.4050, L501.2300, L501.5000, L501.5200, L501.6710, L503.0106, L506.1001, L3300.0100, L3300.8200, L3300.9900, L3410.9992, L7400.3000, L3410.9996, L3410.9994 ####[facility] [address] [place], [address] Potassium [Moles/Vol] 2.6 mmol/L Invalid Interpretation Code 3.3-5.1 [facility] Comment on above: Result Comment: Crit ical Result(s) Called at: 1539 by:??CLAUDIA ALEXANDRE Results read back by same. Performed By: #### L 100.0500, L500.4050, L501.2300, L501.5000, L501.5200, L501.6710, L503.0106, L506.1001, L3300.0100, L3300.8200, L3300.9900, L3410.9992, L7400.3000, L3410.9996, L3410.9994 ####[facility] [address] [place], [place], [phone] Sodium [Moles/Vol] 137 mmol/L Normal 133-145 [facility] Comment on above: Performed By: #### L 100.0500, L500.4050, L501.2300, L501.5000, L501.5200, L501.6710, L503.0106, L506.1001, L3300.0100, L3300.8200, L3300.9900, L3410.9992, L7400.3000, L3410.9996, L3410.9994 ####[facility] [address] [place], [place], [phone] T PROT 7.4 g/dL Normal 5.9-8.4 [facility] Comment on above: Performed By: #### L 100.0500, L500.4050, L501.2300, L501.5000, L501.5200, L501.6710, L503.0106, L506.1001, L3300.0100, L3300.8200, L3300.9900, L3410.9992, L7400.3000, L3410.9996, L3410.9994 ####[facility] [address] [place], [place], [phone] Urea nitrogen [Mass/Vol] 17 mg/dL Normal 4-19 [facility] Comment on above: Performed By: #### L 100.0500, L500.4050, L501.2300, L501.5000, L501.5200, L501.6710, L503.0106, L506.1001, L3300.0100, L3300.8200, L3300.9900, L3410.9992, L7400.3000, L3410.9996, L3410.9994 ####[facility] [address] [place], [place], [phone] Magnesiumon 01-08-2025 Magnesium [Mass/Vol] 2.1 mg/dL Normal 1.5-2.2 [facility] Comment on above: Performed By: #### L 100.0500, L500.4050, L501.2300, L501.5000, L501.5200, L501.6710, L503.0106, L506.1001, L3300.0100, L3300.8200, L3300.9900, L3410.9992, L7400.3000, L3410.9996, L3410.9994 ####[facility] [address] [place], [place], [phone] Phosphoruson 01-08-2025 Phosphate [Mass/Vol] 2.9 mg/dL Normal 2.7-4.5 [facility] Comment on above: Performed By: #### L 100.0500, L500.4050, L501.2300, L501.5000, L501.5200, L501.6710, L503.0106, L506.1001, L3300.0100, L3300.8200, L3300.9900, L3410.9992, L7400.3000, L3410.9996, L3410.9994 ####[facility] [address] [facility] [place], [place], [address] Triglycerideson 01-08-2025 Triglyceride [Mass/Vol] 90 mg/dL Normal [facility] Comment on above: Result Comment: The drugs N-Acetylcysteine and Metamizole may falselydepress this assay.Normal range: <150 mg/dLBorderline High: 150-199 mg/dLHigh: 200-499 mg/dLVery High: >500 mg/dL Performed By: #### L 100.0500, L500.4050, L501.2300, L501.5000, L501.5200, L501.6710, L503.0106, L506.1001, L3300.0100, L3300.8200, L3300.9900, L3410.9992, L7400.3000, L3410.9996, L3410.9994 ####[facility] [address] [place], [address] Vitamin B12on 01-08-2025 Cobalamin (Vitamin B12) [Mass/Vol] 381 pg/mL Normal 180-914 [facility] Comment on above: Performed By: #### L 100.0500, L500.4050, L501.2300, L501.5000, L501.5200, L501.6710, L503.0106, L506.1001, L3300.0100, L3300.8200, L3300.9900, L3410.9992, L7400.3000, L3410.9996, L3410.9994 ####[facility] [address] [place], [address] Vitamin D,25 Hydroxyon 01-08 Vitamin D 25-OH 8.9 ng/mL Low 30-100 [facility] Comment on above: Result Comment: Yamileth min D StatusDeficiency: <20 ng/mL (50nmol/L)Insufficiency: 20-30 ng/mL (50-75 nmol/L)Sufficiency: 30-100 ng/mL (75-250 nmol/L)Toxicity: >100 ng/mL (>250 nmol/L) Performed By: #### L 100.0500, L500.4050, L501.2300, L501.5000, L501.5200, L501.6710, L503.0106, L506.1001, L3300.0100, L3300.8200, L3300.9900, L3410.9992, L7400.3000, L3410.9996, L3410.9994 ####[facility] [address] [place], [address] CNOVon 12-31-2024 CNOV Normal [facility] CNPNon 12-25-2024 CNPN Normal [facility] CNPTOUTREACHon 12-25-2024 CNPTOUTREACH Normal [facility] CBC W/Diff, Automatedon 06-3 0-2024 Absolute Lymph 2.63 X10 3/uL Normal 0.83-4.51 [facility] Comment on above: Performed By: #### L 100.0100, L500.4050, L501.2300, L501.5200 ####[facility] [address] [place], [address] Absolute Neut 7.8 X10 3/uL High 2.0-7.7 [facility] Comment on above: Performed By: #### L 100.0100, L500.4050, L501.2300, L501.5200 ####[facility] [address] [place], [address] Basophils/100 WBC (Bld) 0.4 % Normal 0-1 [facility] Comment on above: Performed By: #### L 100.0100, L500.4050, L501.2300, L501.5200 ####[facility] [address] [place], [address] Eosinophils/100 WBC (Bld) 2.6 % Normal 0-5 [facility] Comment on above: Performed By: #### L 100.0100, L500.4050, L501.2300, L501.5200 ####[facility] [address] [place], [address] Erythrocyte distribution width (RBC) [Ratio] 19.0 % High 11.6-14.6 [facility] Comment on above: Performed By: #### L 100.0100, L500.4050, L501.2300, L501.5200 ####[facility] [address] [place], [address] Hematocrit (Bld) [Volume fraction] 32.9 % Low 37-47 [facility] Comment on above: Performed By: #### L 100.0100, L500.4050, L501.2300, L501.5200 ####[facility] [address] [place], [address] Hemoglobin (Bld) [Mass/Vol] 10.4 g/dL Low 12.0-15.0 [facility] Comment on above: Performed By: #### L 100.0100, L500.4050, L501.2300, L501.5200 ####[facility] [address] [place], [address] IG% 0.600 Normal 0.0-0.9 [facility] Comment on above: Result Comment: IG% - Immature Granulocytes (promyelocytes, myelocytes andmetamyelocytes) > 1% indicates that a LEFT SHIFT is Present. Performed By: #### L 100.0100, L500.4050, L501.2300, L501.5200 ####[facility] [address] [place], [address] Lymphocytes/100 WBC (Bld) 22.8 % Normal 19-41 [facility] Comment on above: Performed By: #### L 100.0100, L500.4050, L501.2300, L501.5200 ####[facility] [address] [place], [address] MCH (RBC) [Entitic mass] 27.2 pg Normal 27.0-32.0 [facility] Comment on above: Performed By: #### L 100.0100, L500.4050, L501.2300, L501.5200 ####[facility] [address] [place], [address] MCHC (RBC) [Mass/Vol] 31.6 g/dL Low 32-36 [facility] Comment on above: Performed By: #### L 100.0100, L500.4050, L501.2300, L501.5200 ####[facility] [address] [place], [address] MCV (RBC) [Entitic vol] 85.9 fL Normal 81-99 [facility] Comment on above: Performed By: #### L 100.0100, L500.4050, L501.2300, L501.5200 ####[facility] [address] [place], [address] Monocytes/100 WBC (Bld) 5.7 % Normal 0-10 [facility] Comment on above: Performed By: #### L 100.0100, L500.4050, L501.2300, L501.5200 ####[facility] [address] [place], [address] Neutrophils/100 WBC (Bld) 67.9 % Normal 47-70 [facility] Comment on above: Performed By: #### L 100.0100, L500.4050, L501.2300, L501.5200 ####[facility] [address] [place], [address] Nucleated RBC (Bld) [#/Vol] 0 10*3/uL Normal 0-5 [facility] Comment on above: Performed By: #### L 100.0100, L500.4050, L501.2300, L501.5200 ####[facility] [address] [place], [address] Platelet mean volume (Bld) [Entitic vol] 9.2 fL Normal 6.2-12.0 [facility] Comment on above: Performed By: #### L 100.0100, L500.4050, L501.2300, L501.5200 ####[facility] [address] [place], [address] Platelets (Bld) [#/Vol] 500 10*3/uL High 150-450 [facility] Comment on above: Performed By: #### L 100.0100, L500.4050, L501.2300, L501.5200 ####[facility] [address] [place], [address] RBC (Bld) [#/Vol] 3.83 10*6/uL Low 4.2-5.4 [facility] Comment on above: Performed By: #### L 100.0100, L500.4050, L501.2300, L501.5200 ####[facility] [address] [place], [address] RDW SD 59.3 fl High 35.1-43.9 [facility] Comment on above: Performed By: #### L 100.0100, L500.4050, L501.2300, L501.5200 ####[facility] [address] [place], [address] WBC (Bld) [#/Vol] 11.5 10*3/uL High 4.4-11.0 [facility] Comment on above: Performed By: #### L 100.0100, L500.4050, L501.2300, L501.5200 ####[facility] [address] [place], [address] Comprehensive Metabolic Prof [facility] 12-24-2024 Albumin [Mass/Vol] 3.6 g/dL Normal 3.5-5.0 [facility] Comment on above: Performed By: #### L 100.0100, L500.4050, L501.2300, L501.5200 ####[facility] [address] [place], [address] Albumin/Globulin [Mass ratio] 0.9 {ratio} Normal 0.9-2.4 [facility] Comment on above: Performed By: #### L 100.0100, L500.4050, L501.2300, L501.5200 ####[facility] [address] [place], [address] ALK PHOS 192 U/L High 35-104 [facility] Comment on above: Performed By: #### L 100.0100, L500.4050, L501.2300, L501.5200 ####[facility] [address] [place], [address] ALT [Catalytic activity/Vol] 77 U/L High <=34 [facility] Comment on above: Performed By: #### L 100.0100, L500.4050, L501.2300, L501.5200 ####[facility] [address] [place], [address] AST [Catalytic activity/Vol] 42 U/L High <=31 [facility] Comment on above: Performed By: #### L 100.0100, L500.4050, L501.2300, L501.5200 ####[facility] [address] [place], [address] Bilirubin [Mass/Vol] 0.28 mg/dL Normal 0.00-1.30 [facility] Comment on above: Performed By: #### L 100.0100, L500.4050, L501.2300, L501.5200 ####[facility] [address] [place], [address] BUN/CRE 25.0 RATIO High 10-20 [facility] Comment on above: Performed By: #### L 100.0100, L500.4050, L501.2300, L501.5200 ####[facility] [address] [place], [address] Calcium [Mass/Vol] 9.1 mg/dL Normal 7.6-11.0 [facility] Comment on above: Performed By: #### L 100.0100, L500.4050, L501.2300, L501.5200 ####[facility] [address] [place], [address] Chloride [Moles/Vol] 105 mmol/L Normal 98-108 [facility] Comment on above: Performed By: #### L 100.0100, L500.4050, L501.2300, L501.5200 ####[facility] [address] [place], [address] CO2 [Moles/Vol] 20.1 mmol/L Low 21.0-32.0 [facility] Comment on above: Performed By: #### L 100.0100, L500.4050, L501.2300, L501.5200 ####[facility] [address] [place], [address] Creatinine [Mass/Vol] 0.94 mg/dL Normal 0.70-1.20 [facility] Comment on above: Performed By: #### L 100.0100, L500.4050, L501.2300, L501.5200 ####[facility] [address] [place], [address] GAP 14 Normal 5-15 [facility] Comment on above: Performed By: #### L 100.0100, L500.4050, L501.2300, L501.5200 ####[facility] [address] [place], [address] GFR/1.73 sq M.predicted among non-blacks MDRD (S/P/Bld) [Vol rate/Area] 79 mL/min/{1.73_m2} Normal >60 [facility] Comment on above: Result Comment: mL/m in/1.73m2 CKD-EPI Creatinine Equation (2020) Performed By: #### L 100.0100, L500.4050, L501.2300, L501.5200 ####[facility] [address] [place], [address] Globulin (S) [Mass/Vol] 3.8 g/dL Normal 2.2-4.2 [facility] Comment on above: Performed By: #### L 100.0100, L500.4050, L501.2300, L501.5200 ####[facility] [address] [place], [address] Glucose [Mass/Vol] 104 mg/dL High 70-99 [facility] Comment on above: Performed By: #### L 100.0100, L500.4050, L501.2300, L501.5200 ####[facility] [address] [place], [address] Potassium [Moles/Vol] 3.7 mmol/L Normal 3.3-5.1 [facility] Comment on above: Performed By: #### L 100.0100, L500.4050, L501.2300, L501.5200 ####[facility] [address] [place], [address] Sodium [Moles/Vol] 139 mmol/L Normal 133-145 [facility] Comment on above: Performed By: #### L 100.0100, L500.4050, L501.2300, L501.5200 ####[facility] [address] [place], [address] T PROT 7.3 g/dL Normal 5.9-8.4 [facility] Comment on above: Performed By: #### L 100.0100, L500.4050, L501.2300, L501.5200 ####[facility] [address] [place], [address] Urea nitrogen [Mass/Vol] 23 mg/dL High 4-19 [facility] Comment on above: Performed By: #### L 100.0100, L500.4050, L501.2300, L501.5200 ####[facility] [address] [place], [address] Magnesiumon 12-24-2024 Magnesium [Mass/Vol] 2.1 mg/dL Normal 1.5-2.2 [facility] Comment on above: Performed By: #### L 100.0100, L500.4050, L501.2300, L501.5200 ####[facility] [address] [place], [address] Phosphoruson 12-24-2024 Phosphate [Mass/Vol] 3.7 mg/dL Normal 2.7-4.5 [facility] Comment on above: Performed By: #### L 100.0100, L500.4050, L501.2300, L501.5200 ####[facility] [address] [place], [address] CASE MANAGEMon 12-21-2024 CASE MANAGEM Normal [facility] CBC W Auto Differential pane l (Bld)on 12-21-2024 Basophils (Bld) [#/Vol] 0.03 10*3/uL Normal <0.11 [facility] Comment on above: Order Comment: Speci men Type: BLOOD SPECIMENOrdering Facility: [facility] Address: [address] [place] [address] Performed By: #### 5 7021-8 ####[facility] LABCLIA [id number] [place] [id number] [place] Basophils/100 WBC (Bld) 0.4 % Normal [facility] Comment on above: Order Comment: Speci men Type: BLOOD SPECIMENOrdering Facility: [facility] Address: [address] [place] [address] Performed By: #### 5 7021-8 ####[facility] LABCLIA [id number] [place] [address] [place] Differential cell count method Nom (Bld) Auto Normal [facility] Comment on above: Order Comment: Speci men Type: BLOOD SPECIMENOrdering Facility: [facility] Address: [address] [place] [address] Performed By: #### 5 7021-8 ####[facility] LABCLIA [id number] [place] [id number] [place] Eosinophils (Bld) [#/Vol] 0.30 10*3/uL Normal <0.46 [facility] Comment on above: Order Comment: Speci men Type: BLOOD SPECIMENOrdering Facility: [facility] Address: [address] [place] [address] Performed By: #### 5 7021-8 ####[facility] LABCLIA [id number] [address], [facility]95 [place] Eosinophils/100 WBC (Bld) 4.0 % Normal [facility] Comment on above: Order Comment: Speci men Type: BLOOD SPECIMENOrdering Facility: [facility] Address: [address] [place] [address] Performed By: #### 5 7021-8 ####[facility] LABIA [id number] [place] [address] [place] Erythrocyte distribution width (RBC) [Ratio] 19.8 % High 11.5-15.0 [facility] Comment on above: Order Comment: Speci men Type: BLOOD SPECIMENOrdering Facility: [facility] Address: [address] [place] [address] Performed By: #### 5 7021-8 ####[facility] LABIA [id number] [place] [address] [place] Hematocrit (Bld) [Volume fraction] 30.5 % Low 36.0-46.0 [facility] Comment on above: Order Comment: Speci men Type: BLOOD SPECIMENOrdering Facility: [facility] Address: [address] [place] [address] Performed By: #### 5 7021-8 ####[facility] LABIA [id number] [place] [address] [place] Hemoglobin (Bld) [Mass/Vol] 9.7 g/dL Low 11.5-15.5 [facility] Comment on above: Order Comment: Speci men Type: BLOOD SPECIMENOrdering Facility: [facility] Address: [address] [place] [address] Performed By: #### 5 7021-8 ####[facility] LABIA [id number] [place] [address] [place] Immature granulocytes (Bld) [#/Vol] 0.05 10*3/uL Normal <0.10 [facility] Comment on above: Order Comment: Speci men Type: BLOOD SPECIMENOrdering Facility: [facility] Address: [address] [place] [address] Performed By: #### 5 7021-8 ####[facility] LABCLIA [id number] [place] [address] [place] Immature granulocytes/100 WBC (Bld) 0.7 % Normal [facility] Comment on above: Order Comment: Speci men Type: BLOOD SPECIMENOrdering Facility: [facility] Address: [address] [place] [address] Performed By: #### 5 7021-8 ####[facility] LABIA [id number] [place] [address] [place] Lymphocytes (Bld) [#/Vol] 1.12 10*3/uL Normal 1.00-4.00 [facility] Comment on above: Order Comment: Speci men Type: BLOOD SPECIMENOrdering Facility: [facility] Address: [address] [place] [address] Performed By: #### 5 7021-8 ####[facility] LABIA [id number] [place] [address] [place] Lymphocytes/100 WBC (Bld) 14.9 % Normal [facility] Comment on above: Order Comment: Speci men Type: BLOOD SPECIMENOrdering Facility: [facility] Address: [address] [place] [address] Performed By: #### 5 7021-8 ####[facility] LABIA [id number] [place] [address] [place] MCH (RBC) [Entitic mass] 27.4 pg Normal 26.0-34.0 [facility] Comment on above: Order Comment: Speci men Type: BLOOD SPECIMENOrdering Facility: [facility] Address: [address] [place] [address] Performed By: #### 5 7021-8 ####[facility] LABIA [id number] [place] [address] [place] MCHC (RBC) [Mass/Vol] 31.8 g/dL Normal 30.5-36.0 [facility] Comment on above: Order Comment: Speci men Type: BLOOD SPECIMENOrdering Facility: [facility] Address: [address] [place] [address] Performed By: #### 5 7021-8 ####[facility] LABIA [id number] [place] [address] [place] MCV (RBC) [Entitic vol] 86.2 fL Normal 80.0-100.0 [facility] Comment on above: Order Comment: Speci men Type: BLOOD SPECIMENOrdering Facility: [facility] Address: [address] [place] [address] Performed By: #### 5 7021-8 ####[facility] LABIA [id number] [place] [address] [place] Monocytes (Bld) [#/Vol] 0.58 10*3/uL Normal <0.87 [facility] Comment on above: Order Comment: Speci men Type: BLOOD SPECIMENOrdering Facility: [facility] Address: [address] [place] [address] Performed By: #### 5 7021-8 ####[facility] LABIA [id number] [place] [address] [place] Monocytes/100 WBC (Bld) 7.7 % Normal [facility] Comment on above: Order Comment: Speci men Type: BLOOD SPECIMENOrdering Facility: [facility] Address: [address] [place] [address] Performed By: #### 5 7021-8 ####[facility] LABIA [id number] [place] [address] [place] Neutrophils (Bld) [#/Vol] 5.45 10*3/uL Normal 1.45-7.50 [facility] Comment on above: Order Comment: Speci men Type: BLOOD SPECIMENOrdering Facility: [facility] Address: [address] [place] [address] Performed By: #### 5 7021-8 ####[facility] LABCLIA [id number] [place] [address] [place] Neutrophils/100 WBC (Bld) 72.3 % Normal [facility] Comment on above: Order Comment: Speci men Type: BLOOD SPECIMENOrdering Facility: [facility] Address: [address] [place] [address] Performed By: #### 5 7021-8 ####[facility] LABCLIA [id number] [place] [address] [place] Nucleated RBC (Bld) [#/Vol] 10*3/uL Normal <0.01 [facility] Comment on above: Order Comment: Speci men Type: BLOOD SPECIMENOrdering Facility: [facility] Address: [address] [place] [address] Performed By: #### 5 7021-8 ####[facility] LABIA [id number] [place] [address] [place] Nucleated RBC/100 WBC (Bld) [Ratio] 0.0 /100 WBC Normal [facility] Comment on above: Order Comment: Speci men Type: BLOOD SPECIMENOrdering Facility: [facility] Address: [address] [place] [address] Performed By: #### 5 7021-8 ####[facility] LABIA [id number] [place] [id number] [place] Platelet mean volume (Bld) [Entitic vol] 9.7 fL Normal 9.0-12.7 [facility] Comment on above: Order Comment: Speci men Type: BLOOD SPECIMENOrdering Facility: [facility] Address: [address] [place] [address] Performed By: #### 5 7021-8 ####[facility] LABIA [id number] [place] [id number] [place] Platelets (Bld) [#/Vol] 428 10*3/uL High 150-400 [facility] Comment on above: Order Comment: Speci men Type: BLOOD SPECIMENOrdering Facility: [facility] Address: [address] [place] [address] Performed By: #### 5 7021-8 ####[facility] LABCLIA [id number] [place] [address] [place] RBC (Bld) [#/Vol] 3.54 10*6/uL Low 3.90-5.20 [facility] Comment on above: Order Comment: Speci men Type: BLOOD SPECIMENOrdering Facility: [facility] Address: [address] [place] [address] Performed By: #### 5 7021-8 ####[facility] LABCLIA [id number] [place] [address] [place] WBC (Bld) [#/Vol] 7.53 10*3/uL Normal 3.70-11.00 [facility] Comment on above: Order Comment: Speci men Type: BLOOD SPECIMENOrdering Facility: [facility] Address: [address] [place] [address] Performed By: #### 5 7021-8 ####[facility] [id number] [place] [address] [place] CNCNPATEDon 12-21-2024 CNCNPATED Normal [facility] CNPNon 12-21-2024 CNPN Normal [facility] CONSULT PROGon 12-21-2024 CONSULT PROG Normal [facility] CONSULT PROG Normal [facility] CRP SerPl-mCncon 12-21-2024 CRP [Mass/Vol] 2.9 mg/dL High <0.9 [facility] Comment on above: Order Comment: Speci men Type: BLOOD SPECIMENOrdering Facility: [facility] Address: [address] [place] [address] Performed By: #### 1 988-5 ####[facility] LABCLIA [id number] [address] [address] [place] Comprehensive metabolic 2000 panelon 12-21-2024 Albumin [Mass/Vol] 2.9 g/dL Low 3.9-4.9 [facility] Comment on above: Order Comment: Speci men Type: BLOOD SPECIMENOrdering Facility: [facility] Address: [address] [place] [address] Performed By: #### 2 4323-8, , 2776- ####[facility] LABCLIA [id number] [address] [address] [place] ALP [Catalytic activity/Vol] 123 U/L Normal 34-123 [facility] Comment on above: Order Comment: Speci men Type: BLOOD SPECIMENOrdering Facility: [facility] Address: [address] [place] [address] Performed By: #### 2 4323-8, , 2776-06 ####[facility] LABCLIA [id number] [address] [address] [place] ALT [Catalytic activity/Vol] 34 U/L Normal 7-38 [facility] Comment on above: Order Comment: Speci men Type: BLOOD SPECIMENOrdering Facility: [facility] Address: [address] [place], [place] [address] Performed By: #### 2 4323-8, , 2776-06 ####[facility] LABCLIA [id number] [address] [address] [place] Anion gap [Moles/Vol] 9 mmol/L Normal 8-15 [facility] Comment on above: Order Comment: Speci men Type: BLOOD SPECIMENOrdering Facility: [facility] Address: [address] [place], [place] [address] Performed By: #### 2 4323-8, 42540-1, 2776- ####[facility] LABCLIA [id number] [place] [address] [place] AST [Catalytic activity/Vol] 26 U/L Normal 13-35 [facility] Comment on above: Order Comment: Speci men Type: BLOOD SPECIMENOrdering Facility: [facility] Address: [address] [place] [address] Performed By: #### 2 4323-8, , 2776-06 ####[facility] LABCLIA [id number] [place] [id number] [place] Bilirubin [Mass/Vol] 0.2 mg/dL Normal 0.2-1.3 [facility] Comment on above: Order Comment: Speci men Type: BLOOD SPECIMENOrdering Facility: [facility] Address: [address] [place] [address] Performed By: #### 2 4323-8, , 2776-06 ####[facility] LABIA [id number] [place] [id number] [place] Calcium [Mass/Vol] 9.1 mg/dL Normal 8.5-10.2 [facility] Comment on above: Order Comment: Speci men Type: BLOOD SPECIMENOrdering Facility: [facility] Address: [address] [place] [address] Performed By: #### 2 4323-8, , 2776-06 ####[facility] LABIA [id number] [place] [address] [place] Chloride [Moles/Vol] 105 mmol/L Normal 98-107 [facility] Comment on above: Order Comment: Speci men Type: BLOOD SPECIMENOrdering Facility: [facility] Address: [address] [place] [address] Performed By: #### 2 4323-8, , 2776-06 ####[facility] LABIA [id number] [address] [place] [address] [place] CO2 [Moles/Vol] 23 mmol/L Normal 22-30 [facility] Comment on above: Order Comment: Dora finch Type: BLOOD SPECIMENOrdering Facility: [facility] Address: [address] [place] [address] Performed By: #### 2 4323-8, , 2776-06 ####[facility] LABCLIA [id number] [place] [address] [place] Creatinine [Mass/Vol] 0.70 mg/dL Normal 0.58-0.96 [facility] Comment on above: Order Comment: Dora finch Type: BLOOD SPECIMENOrdering Facility: [facility] Address: [address] [place] [address] Performed By: #### 2 4323-8, , 2776-06 ####[facility] LABCLIA [id number] [address] [place] [facility] Creatinine and Glomerular filtration rate.predicted panel (S/P/Bld) 112 mL/min/1.73m??? Normal >=60 [facility] Comment on above: Order Comment: Dora finch Type: BLOOD SPECIMENOrdering Facility: [facility] Address: [address] [place] [address] Result Comment: Zeny mated Glomerular Filtration Rate [...] Performed By: #### 2 4323-8, , 2776-06 ####[facility] LABCLIA [id number] [place] [id number] [place] Glucose [Mass/Vol] 125 mg/dL High 74-99 [facility] Comment on above: Order Comment: Florii men Type: BLOOD SPECIMENOrdering Facility: [facility] Address: [address] [place] [address] Result Comment: The [place] Diabetes Association (ADA) provides guidance for cutoff [...] Standards of Medical Care in Diabetes 2016, [place] [employer]. Diabetes Care. 2016.39(Suppl 1). Performed By: #### 2 4323-8, , 2776-06 ####[facility] LABCLIA [id number] [place] [address] [place] Potassium [Moles/Vol] 4.1 mmol/L Normal 3.7-5.1 [facility] Comment on above: Order Comment: Speci men Type: BLOOD SPECIMENOrdering Facility: [facility] Address: [address] [place] [address] Performed By: #### 2 4323-8, , 2776-06 ####[facility] LABCLIA [id number] [place] [id number] [place] Protein [Mass/Vol] 6.2 g/dL Low 6.3-8.0 [facility] Comment on above: Order Comment: Speci men Type: BLOOD SPECIMENOrdering Facility: [facility] Address: [address] [place], [place] [address] Performed By: #### 2 4323-8, , 2776-06 ####[facility] LABCLIA [id number] [facility] [address] [address] [place] Sodium [Moles/Vol] 137 mmol/L Normal 136-144 [facility] Comment on above: Order Comment: Speci men Type: BLOOD SPECIMENOrdering Facility: [facility] Address: [address] [place] [address] Performed By: #### 2 4323-8, , 2776-06 ####[facility] LABCLIA [id number] [address] [place] [address] [place] Urea nitrogen [Mass/Vol] 15 mg/dL Normal 7-21 [facility] Comment on above: Order Comment: Speci men Type: BLOOD SPECIMENOrdering Facility: [facility] Address: [address] [place], [place] [address] Performed By: #### 2 4323-8, , 2776-06 ####[facility] LABCLIA [id number] [address] [place] [address] [place] Magnesium SerPl-mCncon 12-21 Magnesium [Mass/Vol] 2.1 mg/dL Normal 1.7-2.3 [facility] Comment on above: Order Comment: Speci men Type: BLOOD SPECIMENOrdering Facility: [facility] Address: [address] [place], [place] [address] Performed By: #### 2 432-8, , 2776-06 ####[facility] LABCLIA [id number] [address] [place] [address] [place] PT EDon 12-21-2024 PT ED Normal [facility] PT ED Normal [facility] Phosphate SerPl-mCncon 12-21 Phosphate [Mass/Vol] 4.4 mg/dL Normal 2.7-4.8 [facility] Comment on above: Order Comment: Speci men Type: BLOOD SPECIMENOrdering Facility: [facility] Address: [address] [place] [address] Performed By: #### 2 4323-8, , 2776-06 ####[facility] LABCLIA [id number] [address] [place] [address] [place] CASE MANAGEMon 12-20-2024 CASE MANAGEM Normal [facility] CASE MANAGEM Normal [facility] CBC W Auto Differential pane l (Bld)on 12-20-2024 Basophils (Bld) [#/Vol] 0.04 10*3/uL Normal <0.11 [facility] Comment on above: Order Comment: Speci men Type: BLOOD SPECIMENOrdering Facility: [facility] Address: [address] [place] [address] Performed By: #### 5 7021-8 ####[facility] LABIA [id number] [facility] [address] [place] Basophils/100 WBC (Bld) 0.5 % Normal [facility] Comment on above: Order Comment: Speci men Type: BLOOD SPECIMENOrdering Facility: [facility] Address: [address] [place] [address] Performed By: #### 5 7021-8 ####[facility] LABCLIA [id number] [facility] [address] [place] Differential cell count method Nom (Bld) Auto Normal [facility] Comment on above: Order Comment: Speci men Type: BLOOD SPECIMENOrdering Facility: [facility] Address: [address] [place] [address] Performed By: #### 5 7021-8 ####[facility] LABCLIA [id number] [facility] [address] [place] Eosinophils (Bld) [#/Vol] 0.25 10*3/uL Normal <0.46 [facility] Comment on above: Order Comment: Speci men Type: BLOOD SPECIMENOrdering Facility: [facility] Address: [address] [place] [address] Performed By: #### 5 7021-8 ####[facility] LABCLIA [id number] [facility] [address] [place] Eosinophils/100 WBC (Bld) 3.4 % Normal [facility] Comment on above: Order Comment: Speci men Type: BLOOD SPECIMENOrdering Facility: [facility] Address: [address] [place] [address] Performed By: #### 5 7021-8 ####[facility] LABIA [id number] [place] [address] [place] Erythrocyte distribution width (RBC) [Ratio] 20.0 % High 11.5-15.0 [facility] Comment on above: Order Comment: Speci men Type: BLOOD SPECIMENOrdering Facility: [facility] Address: [address] [place] [address] Performed By: #### 5 7021-8 ####[facility] LABIA [id number] [place] [address] [place] Hematocrit (Bld) [Volume fraction] 26.9 % Low 36.0-46.0 [facility] Comment on above: Order Comment: Speci men Type: BLOOD SPECIMENOrdering Facility: [facility] Address: [address] [place] [address] Performed By: #### 5 7021-8 ####[facility] LABIA [id number] [place] [address] [place] Hemoglobin (Bld) [Mass/Vol] 8.6 g/dL Low 11.5-15.5 [facility] Comment on above: Order Comment: Speci men Type: BLOOD SPECIMENOrdering Facility: [facility] Address: [address] [place] [address] Performed By: #### 5 7021-8 ####[facility] LABIA [id number] [place] [address] [place] Immature granulocytes (Bld) [#/Vol] 0.05 10*3/uL Normal <0.10 [facility] Comment on above: Order Comment: Speci men Type: BLOOD SPECIMENOrdering Facility: [facility] Address: [address] [place] [address] Performed By: #### 5 7021-8 ####[facility] LABCLIA [id number] [place] [address] [place] Immature granulocytes/100 WBC (Bld) 0.7 % Normal [facility] Comment on above: Order Comment: Speci men Type: BLOOD SPECIMENOrdering Facility: [facility] Address: [address] [place] [address] Performed By: #### 5 7021-8 ####[facility] LABCLIA [id number] [place] [address] [place] Lymphocytes (Bld) [#/Vol] 1.26 10*3/uL Normal 1.00-4.00 [facility] Comment on above: Order Comment: Speci men Type: BLOOD SPECIMENOrdering Facility: [facility] Address: [address] [place] [address] Performed By: #### 5 7021-8 ####[facility] LABIA [id number] [place] [address] [place] Lymphocytes/100 WBC (Bld) 17.0 % Normal [facility] Comment on above: Order Comment: Speci men Type: BLOOD SPECIMENOrdering Facility: [facility] Address: [address] [place] [address] Performed By: #### 5 7021-8 ####[facility] LABIA [id number] [place] [address] [place] MCH (RBC) [Entitic mass] 27.0 pg Normal 26.0-34.0 [facility] Comment on above: Order Comment: Speci men Type: BLOOD SPECIMENOrdering Facility: [facility] Address: [address] [place] [address] Performed By: #### 5 7021-8 ####[facility] LABIA [id number] [place] [address] [place] MCHC (RBC) [Mass/Vol] 32.0 g/dL Normal 30.5-36.0 [facility] Comment on above: Order Comment: Speci men Type: BLOOD SPECIMENOrdering Facility: [facility] Address: [address] [place] [address] Performed By: #### 5 7021-8 ####[facility] LABCLIA [id number] [place] [address] [place] MCV (RBC) [Entitic vol] 84.6 fL Normal 80.0-100.0 [facility] Comment on above: Order Comment: Speci men Type: BLOOD SPECIMENOrdering Facility: [facility] Address: [address] [place] [address] Performed By: #### 5 7021-8 ####[facility] LABIA [id number] [place] [address] [place] Monocytes (Bld) [#/Vol] 0.50 10*3/uL Normal <0.87 [facility] Comment on above: Order Comment: Speci men Type: BLOOD SPECIMENOrdering Facility: [facility] Address: [address] [place] [address] Performed By: #### 5 7021-8 ####[facility] LABIA [id number] [place] [address] [place] Monocytes/100 WBC (Bld) 6.7 % Normal [facility] Comment on above: Order Comment: Speci men Type: BLOOD SPECIMENOrdering Facility: [facility] Address: [address] [place] [address] Performed By: #### 5 7021-8 ####[facility] LABIA [id number] [place] [address] [place] Neutrophils (Bld) [#/Vol] 5.33 10*3/uL Normal 1.45-7.50 [facility] Comment on above: Order Comment: Speci men Type: BLOOD SPECIMENOrdering Facility: [facility] Address: [address] [place] [address] Performed By: #### 5 7021-8 ####[facility] LABCLIA [id number] [place] [address] [place] Neutrophils/100 WBC (Bld) 71.7 % Normal [facility] Comment on above: Order Comment: Speci men Type: BLOOD SPECIMENOrdering Facility: [facility] Address: [address] [place] [address] Performed By: #### 5 7021-8 ####[facility] LABCLIA [id number] [address], [place] [address] [place] Nucleated RBC (Bld) [#/Vol] 10*3/uL Normal <0.01 [facility] Comment on above: Order Comment: Speci men Type: BLOOD SPECIMENOrdering Facility: [facility] Address: [address] [place] [address] Performed By: #### 5 7021-8 ####[facility] LABIA [id number] [place] [address] [place] Nucleated RBC/100 WBC (Bld) [Ratio] 0.0 /100 WBC Normal [facility] Comment on above: Order Comment: Speci men Type: BLOOD SPECIMENOrdering Facility: [facility] Address: [address] [place] [address] Performed By: #### 5 7021-8 ####[facility] LABIA [id number] [place] [address] [place] Platelet mean volume (Bld) [Entitic vol] 9.2 fL Normal 9.0-12.7 [facility] Comment on above: Order Comment: Speci men Type: BLOOD SPECIMENOrdering Facility: [facility] Address: [address] [place] [address] Performed By: #### 5 7021-8 ####[facility] LABCLIA [id number] [place] [address] [place] Platelets (Bld) [#/Vol] 365 10*3/uL Normal 150-400 [facility] Comment on above: Order Comment: Speci men Type: BLOOD SPECIMENOrdering Facility: [facility] Address: [address] [place] [address] Performed By: #### 5 7021-8 ####[facility] LABCLIA [id number] [place] [id number] [place] RBC (Bld) [#/Vol] 3.18 10*6/uL Low 3.90-5.20 [facility] Comment on above: Order Comment: Speci men Type: BLOOD SPECIMENOrdering Facility: [facility] Address: [address] [place] [address] Performed By: #### 5 7021-8 ####[facility] LABCLIA [id number] [place] [address] [place] WBC (Bld) [#/Vol] 7.43 10*3/uL Normal 3.70-11.00 [facility] Comment on above: Order Comment: Speci men Type: BLOOD SPECIMENOrdering Facility: [facility] Address: [address] [place] [address] Performed By: #### 5 7021-8 ####[facility] LABIA [id number] [place] [id number] [place] CONSULTon 12-20-2024 CONSULT Normal [facility] CONSULT Normal [facility] CONSULT PROGon 12-20-2024 CONSULT PROG Normal [facility] Comprehensive metabolic 2000 panelon 12-20-2024 Albumin [Mass/Vol] 2.7 g/dL Low 3.9-4.9 [facility] Comment on above: Order Comment: Speci men Type: BLOOD SPECIMENOrdering Facility: [facility] Address: [address] [place] [address] Performed By: #### 1 9123-9, 56429-0, 2777-1 ####[facility] LABCLIA [id number] [address] [place] [address] [place] [Catalytic activity/Vol] 95 U/L Normal 34-123 [facility] Comment on above: Order Comment: Speci men Type: BLOOD SPECIMENOrdering Facility: [facility] Address: [address] [place] [address] Performed By: #### 1 9123-9, 64685-8, 277- ####[facility] LABCLIA [id number] [address] [address] [place] ALT [Catalytic activity/Vol] 23 U/L Normal 7-38 [facility] Comment on above: Order Comment: Speci men Type: BLOOD SPECIMENOrdering Facility: [facility] Address: [address] [place] [address] Performed By: #### 1 9123-9, 11395-0, 277- ####[facility] LABCLIA [id number] [place] [id number] [place] Anion gap [Moles/Vol] 11 mmol/L Normal 8-15 [facility] Comment on above: Order Comment: Speci men Type: BLOOD SPECIMENOrdering Facility: [facility] Address: [address] [place] [address] Performed By: #### 1 9123-9, 23773-0, 277- ####[facility] LABCLIA [id number] [place] [address] [place] AST [Catalytic activity/Vol] 20 U/L Normal 13-35 [facility] Comment on above: Order Comment: Speci men Type: BLOOD SPECIMENOrdering Facility: [facility] Address: [address] [place] [address] Performed By: #### 1 9123-9, 48582-0, 2777-1 ####[facility] LABCLIA [id number] [address] [id number], [place] [address] [place] Bilirubin [Mass/Vol] 0.2 mg/dL Normal 0.2-1.3 [facility] Comment on above: Order Comment: Speci men Type: BLOOD SPECIMENOrdering Facility: [facility] Address: [address] [place] [address] Performed By: #### 1 9123-9, 29737-7, 2776- ####[facility] LABCLIA [id number] [address] [place] [address] [place] Calcium [Mass/Vol] 8.8 mg/dL Normal 8.5-10.2 [facility] Comment on above: Order Comment: Speci men Type: BLOOD SPECIMENOrdering Facility: [facility] Address: [address] [place] [address] Performed By: #### 1 9123-9, 05805-3, 2776- ####[facility] LABCLIA [id number] [place] [address] [place] Chloride [Moles/Vol] 106 mmol/L Normal 98-107 [facility] Comment on above: Order Comment: Speci men Type: BLOOD SPECIMENOrdering Facility: [facility] Address: [address] [place] [address] Performed By: #### 1 9123-9, 48395-8, 2776- ####[facility] LABCLIA [id number] [address], [facility]95 [place] CO2 [Moles/Vol] 22 mmol/L Normal 22-30 [facility] Comment on above: Order Comment: Speci men Type: BLOOD SPECIMENOrdering Facility: [facility] Address: [address] [place] [address] Performed By: #### 1 9123-9, 95205-5, 2776- ####[facility] LABCLIA [id number] [address] [place] [address] [place] Creatinine [Mass/Vol] 0.68 mg/dL Normal 0.58-0.96 [facility] Comment on above: Order Comment: Dora finch Type: BLOOD SPECIMENOrdering Facility: [facility] Address: [address] [place] [address] Performed By: #### 1 9123-9, 13592-3, 277- ####[facility] LABCLIA [id number] [place] [address] [place] Creatinine and Glomerular filtration rate.predicted panel (S/P/Bld) 112 mL/min/1.73m??? Normal >=60 [facility] Comment on above: Order Comment: Dora finch Type: BLOOD SPECIMENOrdering Facility: [facility] Address: [address] [place] [address] Result Comment: Zeny mated Glomerular Filtration Rate [...] actual GFR. Performed By: #### 1 9123-9, 69052-9, 27712-25 ####[facility] LABCLIA [id number] [place] [address] [place] Glucose [Mass/Vol] 127 mg/dL High 74-99 [facility] Comment on above: Order Comment: Dora finch Type: BLOOD SPECIMENOrdering Facility: [facility] Address: [address] [place] [address] Result Comment: The [place] Diabetes Association (ADA) provides guidance for cutoff [...] Standards of Medical Care in Diabetes 2016, [place] Diabetes Association. Diabetes Care. 2016.39(Suppl 1). Performed By: #### 1 9123-9, 60752-0, 277- ####[facility] LABCLIA [id number] [address] [address] [place] Potassium [Moles/Vol] 4.0 mmol/L Normal 3.7-5.1 [facility] Comment on above: Order Comment: Speci men Type: BLOOD SPECIMENOrdering Facility: [facility] Address: [address] [place], [place] [address] Performed By: #### 1 9123-9, 68979-6, 27712-25 ####[facility] LABCLIA [id number] [address] [address] [place] Protein [Mass/Vol] 5.9 g/dL Low 6.3-8.0 [facility] Comment on above: Order Comment: Speci men Type: BLOOD SPECIMENOrdering Facility: [facility] Address: [address] [place], [place] [address] Performed By: #### 1 9123-9, 23227-2, 2776-06 ####[facility] LABCLIA [id number] [address] [address] [place] Sodium [Moles/Vol] 139 mmol/L Normal 136-144 [facility] Comment on above: Order Comment: Speci men Type: BLOOD SPECIMENOrdering Facility: [facility] Address: [address] [place] [address] Performed By: #### 1 9123-9, 09262-7, 2776-06 ####[facility] LABCLIA [id number] [address] [address] [place] Urea nitrogen [Mass/Vol] 10 mg/dL Normal 7-21 [facility] Comment on above: Order Comment: Speci men Type: BLOOD SPECIMENOrdering Facility: [facility] Address: [address] [place], [place] [address] Performed By: #### 1 9123-9, 08561-6, 2777-1 ####[facility] LABCLIA [id number] [address], [facility]95 [place] Magnesium SerPl-ncon 12-20 Magnesium [Mass/Vol] 1.9 mg/dL Normal 1.7-2.3 [facility] Comment on above: Order Comment: Speci men Type: BLOOD SPECIMENOrdering Facility: [facility] Address: [address] [place] [address] Performed By: #### 1 9123-9, 61624-5, 2777-1 ####[facility] LABCLIA [id number] [place] [address] [place] NUTRITIONon 12-20-2024 NUTRITION Normal [facility] Phosphate SerPl-mCncon 12-20 Phosphate [Mass/Vol] 4.6 mg/dL Normal 2.7-4.8 [facility] Comment on above: Order Comment: Speci men Type: BLOOD SPECIMENOrdering Facility: [facility] Address: [address] [place] [address] Performed By: #### 1 9123-9, 88823-5, 2777-1 ####[facility] LABCLIA [id number] [address], [place] [address] [place] CASE MANAGEMon 12-19-2024 CASE MANAGEM Normal [facility] CBC W Auto Differential pane l (Bld)on 12-19-2024 Basophils (Bld) [#/Vol] 10*3/uL Normal <0.11 [facility] Comment on above: Order Comment: Speci men Type: BLOOD SPECIMENOrdering Facility: [facility] Address: [address] [place] [address] Performed By: #### 5 7021-8 ####[facility] LABCLIA [id number] [address] [id number], [place] [address] [place] Basophils/100 WBC (Bld) 0.3 % Normal [facility] Comment on above: Order Comment: Speci men Type: BLOOD SPECIMENOrdering Facility: [facility] Address: [address] [place] [address] Performed By: #### 5 7021-8 ####[facility] LABCLIA [id number] [place] [address] [place] Differential cell count method Nom (Bld) Auto Normal [facility] Comment on above: Order Comment: Speci men Type: BLOOD SPECIMENOrdering Facility: [facility] Address: [address] [place] [address] Performed By: #### 5 7021-8 ####[facility] LABCLIA [id number] [place] [address] [place] Eosinophils (Bld) [#/Vol] 0.24 10*3/uL Normal <0.46 [facility] Comment on above: Order Comment: Speci men Type: BLOOD SPECIMENOrdering Facility: [facility] Address: [address] [place] [address] Performed By: #### 5 7021-8 ####[facility] LABCLIA [id number] [place] [address] [place] Eosinophils/100 WBC (Bld) 3.0 % Normal [facility] Comment on above: Order Comment: Speci men Type: BLOOD SPECIMENOrdering Facility: [facility] Address: [address] [place] [address] Performed By: #### 5 7021-8 ####[facility] LABCLIA [id number] [place] [address] [place] Erythrocyte distribution width (RBC) [Ratio] 19.9 % High 11.5-15.0 [facility] Comment on above: Order Comment: Speci men Type: BLOOD SPECIMENOrdering Facility: [facility] Address: [address] [place] [address] Performed By: #### 5 7021-8 ####[facility] LABCLIA [id number] [address], [place] [address] [place] Hematocrit (Bld) [Volume fraction] 26.4 % Low 36.0-46.0 [facility] Comment on above: Order Comment: Speci men Type: BLOOD SPECIMENOrdering Facility: [facility] Address: [address] [place] [address] Performed By: #### 5 7021-8 ####[facility] LABIA [id number] [address], [place] [address] [place] Hemoglobin (Bld) [Mass/Vol] 8.5 g/dL Low 11.5-15.5 [facility] Comment on above: Order Comment: Speci men Type: BLOOD SPECIMENOrdering Facility: [facility] Address: [address] [place] [address] Performed By: #### 5 7021-8 ####[facility] LABIA [id number] [address], [place] [address] [place] Immature granulocytes (Bld) [#/Vol] 0.05 10*3/uL Normal <0.10 [facility] Comment on above: Order Comment: Speci men Type: BLOOD SPECIMENOrdering Facility: [facility] Address: [address] [place] [address] Performed By: #### 5 7021-8 ####[facility] LABIA [id number] [place] [address] [place] Immature granulocytes/100 WBC (Bld) 0.6 % Normal [facility] Comment on above: Order Comment: Speci men Type: BLOOD SPECIMENOrdering Facility: [facility] Address: [address] [place] [address] Performed By: #### 5 7021-8 ####[facility] LABIA [id number] [place] [address] [place] Lymphocytes (Bld) [#/Vol] 1.35 10*3/uL Normal 1.00-4.00 [facility] Comment on above: Order Comment: Speci men Type: BLOOD SPECIMENOrdering Facility: [facility] Address: [address] [place] [address] Performed By: #### 5 7021-8 ####[facility] LABCLIA [id number] [place] [address] [place] Lymphocytes/100 WBC (Bld) 17.1 % Normal [facility] Comment on above: Order Comment: Speci men Type: BLOOD SPECIMENOrdering Facility: [facility] Address: [address] [place] [address] Performed By: #### 5 7021-8 ####[facility] LABIA [id number] [place] [address] [place] MCH (RBC) [Entitic mass] 27.3 pg Normal 26.0-34.0 [facility] Comment on above: Order Comment: Speci men Type: BLOOD SPECIMENOrdering Facility: [facility] Address: [address] [place] [address] Performed By: #### 5 7021-8 ####[facility] LABIA [id number] [address] [place] MCHC (RBC) [Mass/Vol] 32.2 g/dL Normal 30.5-36.0 [facility] Comment on above: Order Comment: Speci men Type: BLOOD SPECIMENOrdering Facility: [facility] Address: [address] [place] [address] Performed By: #### 5 7021-8 ####[facility] LABIA [id number] [address] [place] MCV (RBC) [Entitic vol] 84.9 fL Normal 80.0-100.0 [facility] Comment on above: Order Comment: Speci men Type: BLOOD SPECIMENOrdering Facility: [facility] Address: [address] [place] [address] Performed By: #### 5 7021-8 ####[facility] LABCLIA [id number] [address], [place] [address] [place] Monocytes (Bld) [#/Vol] 0.67 10*3/uL Normal <0.87 [facility] Comment on above: Order Comment: Speci men Type: BLOOD SPECIMENOrdering Facility: [facility] Address: [address] [place] [address] Performed By: #### 5 7021-8 ####[facility] LABCLIA [id number] [address], [place] [address] [place] Monocytes/100 WBC (Bld) 8.5 % Normal [facility] Comment on above: Order Comment: Speci men Type: BLOOD SPECIMENOrdering Facility: [facility] Address: [address] [place] [address] Performed By: #### 5 7021-8 ####[facility] LABCLIA [id number] [address], [facility]95 [place] Neutrophils (Bld) [#/Vol] 5.58 10*3/uL Normal 1.45-7.50 [facility] Comment on above: Order Comment: Speci men Type: BLOOD SPECIMENOrdering Facility: [facility] Address: [address] [place] [address] Performed By: #### 5 7021-8 ####[facility] LABCLIA [id number] [facility] [address], [facility]95 [place] Neutrophils/100 WBC (Bld) 70.5 % Normal [facility] Comment on above: Order Comment: Speci men Type: BLOOD SPECIMENOrdering Facility: [facility] Address: [address] [place] [address] Performed By: #### 5 7021-8 ####[facility] LABCLIA [id number] [address] [place] [address] [place] Nucleated RBC (Bld) [#/Vol] 10*3/uL Normal <0.01 [facility] Comment on above: Order Comment: Speci men Type: BLOOD SPECIMENOrdering Facility: [facility] Address: [address] [place] [address] Performed By: #### 5 7021-8 ####[facility] LABCLIA [id number] [place] [address] [place] Nucleated RBC/100 WBC (Bld) [Ratio] 0.0 /100 WBC Normal [facility] Comment on above: Order Comment: Speci men Type: BLOOD SPECIMENOrdering Facility: [facility] Address: [address] [place] [address] Performed By: #### 5 7021-8 ####[facility] LABCLIA [id number] [place] [address] [place] Platelet mean volume (Bld) [Entitic vol] 9.7 fL Normal 9.0-12.7 [facility] Comment on above: Order Comment: Speci men Type: BLOOD SPECIMENOrdering Facility: [facility] Address: [address] [place] [address] Performed By: #### 5 7021-8 ####[facility] LABIA [id number] [place] [address] [place] Platelets (Bld) [#/Vol] 362 10*3/uL Normal 150-400 [facility] Comment on above: Order Comment: Speci men Type: BLOOD SPECIMENOrdering Facility: [facility] Address: [address] [place] [address] Performed By: #### 5 7021-8 ####[facility] LABCLIA [id number] [place] [address] [place] RBC (Bld) [#/Vol] 3.11 10*6/uL Low 3.90-5.20 [facility] Comment on above: Order Comment: Speci men Type: BLOOD SPECIMENOrdering Facility: [facility] Address: [address] [place], [place] [address] Performed By: #### 5 7021-8 ####[facility] LABCLIA [id number] [address] [place] [address] [place] WBC (Bld) [#/Vol] 7.91 10*3/uL Normal 3.70-11.00 [facility] Comment on above: Order Comment: Speci men Type: BLOOD SPECIMENOrdering Facility: [facility] Address: [address] [place] [address] Performed By: #### 5 7021-8 ####[facility] LABCLIA [id number] [address] [address] [place] CONSULT PROGon 12-19-2024 CONSULT PROG Normal [facility] CRP SerPl-mCncon 12-19-2024 CRP [Mass/Vol] 5.7 mg/dL High <0.9 [facility] Comment on above: Order Comment: Speci men Type: BLOOD SPECIMENOrdering Facility: [facility] Address: [address] [place] [address] Performed By: #### 2 4323-8, 1987-10, , 2776-06 ####[facility] LABCLIA [id number] [address] [address] [place] Comprehensive metabolic 2000 panelon 12-19-2024 Albumin [Mass/Vol] 2.8 g/dL Low 3.9-4.9 [facility] Comment on above: Order Comment: Speci men Type: BLOOD SPECIMENOrdering Facility: [facility] Address: [address] [place], [place] [address] Performed By: #### 2 4323-8, 1987-10, , 2776-06 ####[facility] LABCLIA [id number] [address] [place] [address] [place] ALP [Catalytic activity/Vol] 85 U/L Normal 34-123 [facility] Comment on above: Order Comment: Speci men Type: BLOOD SPECIMENOrdering Facility: [facility] Address: [address] [place] [address] Performed By: #### 2 432-8, 1987-10, , 2776-06 ####[facility] LABCLIA [id number] [place] [address] [place] ALT [Catalytic activity/Vol] 12 U/L Normal 7-38 [facility] Comment on above: Order Comment: Speci men Type: BLOOD SPECIMENOrdering Facility: [facility] Address: [address] [place] [address] Performed By: #### 2 4328, 1987-10, , 2776-06 ####[facility] LABCLIA [id number] [place] [address] [place] Anion gap [Moles/Vol] 11 mmol/L Normal 8-15 [facility] Comment on above: Order Comment: Speci men Type: BLOOD SPECIMENOrdering Facility: [facility] Address: [address] [place] [address] Performed By: #### 2 4328, 1987-10, , 2776-06 ####[facility] LABIA [id number] [place] [address] [place] AST [Catalytic activity/Vol] 12 U/L Low 13-35 [facility] Comment on above: Order Comment: Speci men Type: BLOOD SPECIMENOrdering Facility: [facility] Address: [address] [place], [place] [address] Performed By: #### 2 4328, 1987-10, , 2776-06 ####[facility] LABCLIA [id number] [address] [address] [place] Bilirubin [Mass/Vol] 0.3 mg/dL Normal 0.2-1.3 [facility] Comment on above: Order Comment: Speci men Type: BLOOD SPECIMENOrdering Facility: [facility] Address: [address] [place] [address] Performed By: #### 2 432-8, 1987-10, , 2776-06 ####[facility] LABCLIA [id number] [facility] [id number] [address] [place] Calcium [Mass/Vol] 8.6 mg/dL Normal 8.5-10.2 [facility] Comment on above: Order Comment: Speci men Type: BLOOD SPECIMENOrdering Facility: [facility] Address: [address] [place], [place] [address] Performed By: #### 2 432-8, 1987-10, , 2776-06 ####[facility] LABCLIA [id number] [address] [address] [place] Chloride [Moles/Vol] 104 mmol/L Normal 98-107 [facility] Comment on above: Order Comment: Speci men Type: BLOOD SPECIMENOrdering Facility: [facility] Address: [address] [place], [place] [address] Performed By: #### 2 4323-8, 1987-10, , 2776-06 ####[facility] LABCLIA [id number] [facility] [address] [address] [place] CO2 [Moles/Vol] 22 mmol/L Normal 22-30 [facility] Comment on above: Order Comment: Speci men Type: BLOOD SPECIMENOrdering Facility: [facility] Address: [address] [place] [address] Performed By: #### 2 4323-8, 1987-10, , 2776-06 ####[facility] LABCLIA [id number] [facility] [place] [id number], [place] [address] [place] Creatinine [Mass/Vol] 0.64 mg/dL Normal 0.58-0.96 [facility] Comment on above: Order Comment: Speci men Type: BLOOD SPECIMENOrdering Facility: [facility] Address: [address] [place] [address] Performed By: #### 2 4323-8, 1987-10, , 2776-06 ####[facility] LABIA [id number] [address] [address] [place] Creatinine and Glomerular filtration rate.predicted panel (S/P/Bld) 114 mL/min/1.73m??? Normal >=60 [facility] Comment on above: Order Comment: Dora stef Type: BLOOD SPECIMENOrdering Facility: [facility] Address: [address] [place] [address] Result Comment: Zeny mated Glomerular Filtration Rate [...] By: #### 2 4323-8, 1987-10, , 2776-06 ####[facility] LABCLIA [id number] [address] [address] [place] Glucose [Mass/Vol] 103 mg/dL High 74-99 [facility] Comment on above: Order Comment: Dora finch Type: BLOOD SPECIMENOrdering Facility: [facility] Address: [address] [place] [address] Result Comment: The [place] Diabetes Association (ADA) provides guidance for cutoff [...] Standards of Medical Care in Diabetes 2016, [place] [employer]. Diabetes Care. 2016.39(Suppl 1). Performed By: #### 2 432-8, 1987-10, , 2776-06 ####[facility] LABCLIA [id number] [facility] [address] [place] [address] [place] Potassium [Moles/Vol] 3.6 mmol/L Low 3.7-5.1 [facility] Comment on above: Order Comment: Speci men Type: BLOOD SPECIMENOrdering Facility: [facility] Address: [address] [place] [address] Performed By: #### 2 432-8, 1987-10, , 2776-06 ####[facility] LABIA [id number] [address] [place] [address] [place] Protein [Mass/Vol] 5.5 g/dL Low 6.3-8.0 [facility] Comment on above: Order Comment: Speci men Type: BLOOD SPECIMENOrdering Facility: [facility] Address: [address] [place] [address] Performed By: #### 2 4328, 1987-10, , 2776-06 ####[facility] LABIA [id number] [address] [place] [address] [place] Sodium [Moles/Vol] 137 mmol/L Normal 136-144 [facility] Comment on above: Order Comment: Speci men Type: BLOOD SPECIMENOrdering Facility: [facility] Address: [address] [place] [id number] Performed By: #### 2 4323-8, 1987-10, , 2776-06 ####[facility] LABCLIA [id number] [facility] [place] [address] [place] Urea nitrogen [Mass/Vol] 11 mg/dL Normal 7-21 [facility] Comment on above: Order Comment: Speci men Type: BLOOD SPECIMENOrdering Facility: [facility] Address: [address] [place] [address] Performed By: #### 2 4323-8, 1987-10, , 2776-06 ####[facility] LABCLIA [id number] [place] [id number] [place] Magnesium SerPl-mCncon 12-19 Magnesium [Mass/Vol] 1.9 mg/dL Normal 1.7-2.3 [facility] Comment on above: Order Comment: Speci men Type: BLOOD SPECIMENOrdering Facility: [facility] Address: [address] [place] [address] Performed By: #### 2 4323-8, 1987-10, , 2776-06 ####[facility] LABCLIA [id number] [place] [address] [place] NURSING PROGon 12-19-2024 NURSING PROG Normal [facility] Phosphate SerPl-mCncon 12-19 Phosphate [Mass/Vol] 4.2 mg/dL Normal 2.7-4.8 [facility] Comment on above: Order Comment: Speci men Type: BLOOD SPECIMENOrdering Facility: [facility] Address: [address] [place] [address] Performed By: #### 2 4323-8, 1987-10, , 2776-06 ####[facility] LABCLIA [id number] [place] [address] [place] CBC W Auto Differential pane l (Bld)on 12-18-2024 Basophils (Bld) [#/Vol] 0.03 10*3/uL Normal <0.11 [facility] Comment on above: Order Comment: Speci men Type: BLOOD SPECIMENOrdering Facility: [facility] Address: [address] [place] [address] Performed By: #### 5 7021-8 ####[facility] LABCLIA [id number] [address], [place] [address] [place] Basophils/100 WBC (Bld) 0.4 % Normal [facility] Comment on above: Order Comment: Speci men Type: BLOOD SPECIMENOrdering Facility: [facility] Address: [address] [place] [address] Performed By: #### 5 7021-8 ####[facility] LABCLIA [id number] [address], [place] [address] [place] Differential cell count method Nom (Bld) Auto Normal [facility] Comment on above: Order Comment: Speci men Type: BLOOD SPECIMENOrdering Facility: [facility] Address: [address] [place] [address] Performed By: #### 5 7021-8 ####[facility] LABCLIA [id number] [address], [place] [address] [place] Eosinophils (Bld) [#/Vol] 0.31 10*3/uL Normal <0.46 [facility] Comment on above: Order Comment: Speci men Type: BLOOD SPECIMENOrdering Facility: [facility] Address: [address] [place] [address] Performed By: #### 5 7021-8 ####[facility] LABCLIA [id number] [address], [place] [address] [place] Eosinophils/100 WBC (Bld) 4.4 % Normal [facility] Comment on above: Order Comment: Speci men Type: BLOOD SPECIMENOrdering Facility: [facility] Address: [address] [place] [address] Performed By: #### 5 7021-8 ####[facility] LABCLIA [id number] [address], [place] [address] [place] Erythrocyte distribution width (RBC) [Ratio] 21.3 % High 11.5-15.0 [facility] Comment on above: Order Comment: Speci men Type: BLOOD SPECIMENOrdering Facility: [facility] Address: [address] [place] [address] Performed By: #### 5 7021-8 ####[facility] LABCLIA [id number] [place] [address] [place] Hematocrit (Bld) [Volume fraction] 21.9 % Low 36.0-46.0 [facility] Comment on above: Order Comment: Speci men Type: BLOOD SPECIMENOrdering Facility: [facility] Address: [address] [place] [address] Performed By: #### 5 7021-8 ####[facility] LABIA [id number] [place] [address] [place] Hemoglobin (Bld) [Mass/Vol] 6.8 g/dL Low 11.5-15.5 [facility] Comment on above: Order Comment: Speci men Type: BLOOD SPECIMENOrdering Facility: [facility] Address: [address] [place] [address] Performed By: #### 5 7021-8 ####[facility] LABIA [id number] [place] [address] [place] Immature granulocytes (Bld) [#/Vol] 0.05 10*3/uL Normal <0.10 [facility] Comment on above: Order Comment: Speci men Type: BLOOD SPECIMENOrdering Facility: [facility] Address: [address] [place] [address] Performed By: #### 5 7021-8 ####[facility] LABCLIA [id number] [place] [address] [place] Immature granulocytes/100 WBC (Bld) 0.7 % Normal [facility] Comment on above: Order Comment: Speci men Type: BLOOD SPECIMENOrdering Facility: [facility] Address: [address] [place] [address] Performed By: #### 5 7021-8 ####[facility] LABCLIA [id number] [place] [address] [place] Lymphocytes (Bld) [#/Vol] 1.19 10*3/uL Normal 1.00-4.00 [facility] Comment on above: Order Comment: Speci men Type: BLOOD SPECIMENOrdering Facility: [facility] Address: [address] [place] [address] Performed By: #### 5 7021-8 ####[facility] LABCLIA [id number] [address] [place] Lymphocytes/100 WBC (Bld) 17.0 % Normal [facility] Comment on above: Order Comment: Speci men Type: BLOOD SPECIMENOrdering Facility: [facility] Address: [address] [place] [address] Performed By: #### 5 7021-8 ####[facility] LABCLIA [id number] [place] [address] [place] MCH (RBC) [Entitic mass] 26.7 pg Normal 26.0-34.0 [facility] Comment on above: Order Comment: Speci men Type: BLOOD SPECIMENOrdering Facility: [facility] Address: [address] [place] [address] Performed By: #### 5 7021-8 ####[facility] LABCLIA [id number] [place] [address] [place] MCHC (RBC) [Mass/Vol] 31.1 g/dL Normal 30.5-36.0 [facility] Comment on above: Order Comment: Speci men Type: BLOOD SPECIMENOrdering Facility: [facility] Address: [address] [place] [address] Performed By: #### 5 7021-8 ####[facility] LABCLIA [id number] [place] [address] [place] MCV (RBC) [Entitic vol] 85.9 fL Normal 80.0-100.0 [facility] Comment on above: Order Comment: Speci men Type: BLOOD SPECIMENOrdering Facility: [facility] Address: [address] [place] [address] Performed By: #### 5 7021-8 ####[facility] LABCLIA [id number] [place] [address] [place] Monocytes (Bld) [#/Vol] 0.48 10*3/uL Normal <0.87 [facility] Comment on above: Order Comment: Speci men Type: BLOOD SPECIMENOrdering Facility: [facility] Address: [address] [place] [address] Performed By: #### 5 7021-8 ####[facility] LABCLIA [id number] [place] [address] [place] Monocytes/100 WBC (Bld) 6.8 % Normal [facility] Comment on above: Order Comment: Speci men Type: BLOOD SPECIMENOrdering Facility: [facility] Address: [address] [place] [address] Performed By: #### 5 7021-8 ####[facility] LABCLIA [id number] [place] [address] [place] Neutrophils (Bld) [#/Vol] 4.96 10*3/uL Normal 1.45-7.50 [facility] Comment on above: Order Comment: Speci men Type: BLOOD SPECIMENOrdering Facility: [facility] Address: [address] [place] [address] Performed By: #### 5 7021-8 ####[facility] LABCLIA [id number] [place] [id number] [place] Neutrophils/100 WBC (Bld) 70.7 % Normal [facility] Comment on above: Order Comment: Speci men Type: BLOOD SPECIMENOrdering Facility: [facility] Address: [address] [place] [address] Performed By: #### 5 7021-8 ####[facility] LABCLIA [id number] [place] [address] [place] Nucleated RBC (Bld) [#/Vol] 10*3/uL Normal <0.01 [facility] Comment on above: Order Comment: Speci men Type: BLOOD SPECIMENOrdering Facility: [facility] Address: [address] [place] [address] Performed By: #### 5 7021-8 ####[facility] LABIA [id number] [place] [address] [place] Nucleated RBC/100 WBC (Bld) [Ratio] 0.0 /100 WBC Normal [facility] Comment on above: Order Comment: Speci men Type: BLOOD SPECIMENOrdering Facility: [facility] Address: [address] [place] [address] Performed By: #### 5 7021-8 ####[facility] LABIA [id number] [place] [address] [place] Platelet mean volume (Bld) [Entitic vol] 9.7 fL Normal 9.0-12.7 [facility] Comment on above: Order Comment: Speci men Type: BLOOD SPECIMENOrdering Facility: [facility] Address: [address] [place] [address] Performed By: #### 5 7021-8 ####[facility] LABIA [id number] [place] [address] [place] Platelets (Bld) [#/Vol] 265 10*3/uL Normal 150-400 [facility] Comment on above: Order Comment: Speci men Type: BLOOD SPECIMENOrdering Facility: [facility] Address: [address] [place] [address] Performed By: #### 5 7021-8 ####[facility] LABCLIA [id number] [address], [facility]95 [place] RBC (Bld) [#/Vol] 2.55 10*6/uL Low 3.90-5.20 [facility] Comment on above: Order Comment: Speci men Type: BLOOD SPECIMENOrdering Facility: [facility] Address: [address] [place] [address] Performed By: #### 5 7021-8 ####[facility] LABCLIA [id number] [place] [address] [place] WBC (Bld) [#/Vol] 7.02 10*3/uL Normal 3.70-11.00 [facility] Comment on above: Order Comment: Speci men Type: BLOOD SPECIMENOrdering Facility: [facility] Address: [address] [place] [address] Performed By: #### 5 7021-8 ####[facility] LABCLIA [id number] [place] [address] [place] CBC panel Auto (Bld)on 12-18 Erythrocyte distribution width (RBC) [Ratio] 20.3 % High 11.5-15.0 [facility] Comment on above: Order Comment: Speci men Type: BLOOD SPECIMENOrdering Facility: [facility] Address: [address] [place] [address] Performed By: #### 5 8410-2 ####[facility] LABCLIA [id number] [place] [address] [place] Hematocrit (Bld) [Volume fraction] 26.1 % Low 36.0-46.0 [facility] Comment on above: Order Comment: Speci men Type: BLOOD SPECIMENOrdering Facility: [facility] Address: [address] [place] [address] Performed By: #### 5 8410-2 ####[facility] LABCLIA [id number] [place] [address] [place] Hemoglobin (Bld) [Mass/Vol] 7.9 g/dL Low 11.5-15.5 [facility] Comment on above: Order Comment: Speci men Type: BLOOD SPECIMENOrdering Facility: [facility] Address: [address] [place] [address] Performed By: #### 5 8410-2 ####[facility] LABIA [id number] [place] [address] [place] [facility] MCH (RBC) [Entitic mass] 27.0 pg Normal 26.0-34.0 [facility] Comment on above: Order Comment: Speci men Type: BLOOD SPECIMENOrdering Facility: [facility] Address: [address] [place] [address] Performed By: #### 5 8410-2 ####[facility] LABIA [id number] [place] [address] [place] MCHC (RBC) [Mass/Vol] 30.3 g/dL Low 30.5-36.0 [facility] Comment on above: Order Comment: Speci men Type: BLOOD SPECIMENOrdering Facility: [facility] Address: [address] [place] [address] Performed By: #### 5 8410-2 ####[facility] LABIA [id number] [place] [address] [place] MCV (RBC) [Entitic vol] 89.1 fL Normal 80.0-100.0 [facility] Comment on above: Order Comment: Speci men Type: BLOOD SPECIMENOrdering Facility: [facility] Address: [address] [place] [address] Performed By: #### 5 8410-2 ####[facility] LABCLIA [id number] [place] [address] [place] Nucleated RBC (Bld) [#/Vol] 10*3/uL Normal <0.01 [facility] Comment on above: Order Comment: Speci men Type: BLOOD SPECIMENOrdering Facility: [facility] Address: [address] [place] [address] Performed By: #### 5 8410-2 ####[facility] LABCLIA [id number] [address] [place] [address] [place] Platelet mean volume (Bld) [Entitic vol] 9.8 fL Normal 9.0-12.7 [facility] Comment on above: Order Comment: Speci men Type: BLOOD SPECIMENOrdering Facility: [facility] Address: [address] [place] [address] Performed By: #### 5 8410-2 ####[facility] LABIA [id number] [place] [address] [place] Platelets (Bld) [#/Vol] 287 10*3/uL Normal 150-400 [facility] Comment on above: Order Comment: Speci men Type: BLOOD SPECIMENOrdering Facility: [facility] Address: [address] [place] [address] Performed By: #### 5 8410-2 ####[facility] LABIA [id number] [address], [place] [address] [place] RBC (Bld) [#/Vol] 2.93 10*6/uL Low 3.90-5.20 [facility] Comment on above: Order Comment: Speci men Type: BLOOD SPECIMENOrdering Facility: [facility] Address: [address] [place] [address] Performed By: #### 5 8410-2 ####[facility] LABIA [id number] [place] [address] [place] WBC (Bld) [#/Vol] 8.64 10*3/uL Normal 3.70-11.00 [facility] Comment on above: Order Comment: Speci men Type: BLOOD SPECIMENOrdering Facility: [facility] Address: [address] [place] [address] Performed By: #### 5 8410-2 ####[facility] LABIA [id number] [address], [facility]95 [place] Erythrocyte distribution width (RBC) [Ratio] 21.2 % High 11.5-15.0 [facility] Comment on above: Order Comment: Speci men Type: BLOOD SPECIMENOrdering Facility: [facility] Address: [address] [place] [address] Performed By: #### 5 8410-2 ####[facility] LABIA [id number] [place] [address] [place] Hematocrit (Bld) [Volume fraction] 22.2 % Low 36.0-46.0 [facility] Comment on above: Order Comment: Speci men Type: BLOOD SPECIMENOrdering Facility: [facility] Address: [address] [place] [address] Performed By: #### 5 8410-2 ####[facility] LABIA [id number] [place] [address] [place] Hemoglobin (Bld) [Mass/Vol] 6.9 g/dL Low 11.5-15.5 [facility] Comment on above: Order Comment: Speci men Type: BLOOD SPECIMENOrdering Facility: [facility] Address: [address] [place] [address] Performed By: #### 5 8410-2 ####[facility] LABIA [id number] [place] [address] [place] MCH (RBC) [Entitic mass] 27.0 pg Normal 26.0-34.0 [facility] Comment on above: Order Comment: Speci men Type: BLOOD SPECIMENOrdering Facility: [facility] Address: [address] [place] [address] Performed By: #### 5 8410-2 ####[facility] LABIA [id number] [place] [address] [place] MCHC (RBC) [Mass/Vol] 31.1 g/dL Normal 30.5-36.0 [facility] Comment on above: Order Comment: Speci men Type: BLOOD SPECIMENOrdering Facility: [facility] Address: [address] [place] [address] Performed By: #### 5 8410-2 ####[facility] LABCLIA [id number] [place] [address] [place] MCV (RBC) [Entitic vol] 86.7 fL Normal 80.0-100.0 [facility] Comment on above: Order Comment: Speci men Type: BLOOD SPECIMENOrdering Facility: [facility] Address: [address] [place] [address] Performed By: #### 5 8410-2 ####[facility] LABIA [id number] [place] [address] [place] Nucleated RBC (Bld) [#/Vol] 10*3/uL Normal <0.01 [facility] Comment on above: Order Comment: Speci men Type: BLOOD SPECIMENOrdering Facility: [facility] Address: [address] [place] [address] Performed By: #### 5 8410-2 ####[facility] LABIA [id number] [place] [address] [place] Platelet mean volume (Bld) [Entitic vol] 9.5 fL Normal 9.0-12.7 [facility] Comment on above: Order Comment: Speci men Type: BLOOD SPECIMENOrdering Facility: [facility] Address: [address] [place] [address] Performed By: #### 5 8410-2 ####[facility] LABIA [id number] [place] [address] [place] Platelets (Bld) [#/Vol] 284 10*3/uL Normal 150-400 [facility] Comment on above: Order Comment: Speci men Type: BLOOD SPECIMENOrdering Facility: [facility] Address: [address] [place] [address] Performed By: #### 5 8410-2 ####[facility] LABCLIA [id number] [place] [address] [place] RBC (Bld) [#/Vol] 2.56 10*6/uL Low 3.90-5.20 [facility] Comment on above: Order Comment: Speci men Type: BLOOD SPECIMENOrdering Facility: [facility] Address: [address] [place] [address] Performed By: #### 5 8410-2 ####[facility] LABCLIA [id number] [place] [address] [place] WBC (Bld) [#/Vol] 7.45 10*3/uL Normal 3.70-11.00 [facility] Comment on above: Order Comment: Speci men Type: BLOOD SPECIMENOrdering Facility: [facility] Address: [address] [place] [address] Performed By: #### 5 8410-2 ####[facility] LABIA [id number] [place] [address] [place] Comprehensive metabolic 2000 panelon 12-18-2024 Albumin [Mass/Vol] 2.3 g/dL Low 3.9-4.9 [facility] Comment on above: Order Comment: Speci men Type: BLOOD SPECIMENOrdering Facility: [facility] Address: [address] [place] [address] Performed By: #### 2 4323-8, 43991-1, 2777-1, 257-8 ####[facility] LABIA [id number] [place] [address] [place] ALP [Catalytic activity/Vol] 71 U/L Normal 34-123 [facility] Comment on above: Order Comment: Speci men Type: BLOOD SPECIMENOrdering Facility: [facility] Address: [address] [place] [address] Performed By: #### 2 4323-8, 50568-7, 2777-1, 2571-8 ####[facility] LABCLIA [id number] [place] [address] [place] ALT [Catalytic activity/Vol] 9 U/L Normal 7-38 [facility] Comment on above: Order Comment: Speci men Type: BLOOD SPECIMENOrdering Facility: [facility] Address: [address] [place] [address] Performed By: #### 2 4323-8, 66150-4, 277-1, 2570-8 ####[facility] LABCLIA [id number] [place] [address] [place] Anion gap [Moles/Vol] 10 mmol/L Normal 8-15 [facility] Comment on above: Order Comment: Speci men Type: BLOOD SPECIMENOrdering Facility: [facility] Address: [address] [place] [address] Performed By: #### 2 4323-8, 46488-0, 2776-1, 2570-8 ####[facility] LABCLIA [id number] [place] [address] [place] AST [Catalytic activity/Vol] 9 U/L Low 13-35 [facility] Comment on above: Order Comment: Speci men Type: BLOOD SPECIMENOrdering Facility: [facility] Address: [address] [place] [address] Performed By: #### 2 4323-8, 97240-5, 277-1, 257-8 ####[facility] LABIA [id number] [place] [id number] [place] Bilirubin [Mass/Vol] 0.2 mg/dL Normal 0.2-1.3 [facility] Comment on above: Order Comment: Speci men Type: BLOOD SPECIMENOrdering Facility: [facility] Address: [address] [place] [address] Performed By: #### 2 4323-8, 31332-7, 277-1, 257-8 ####[facility] LABCLIA [id number] [place] [id number] [place] Calcium [Mass/Vol] 8.0 mg/dL Low 8.5-10.2 [facility] Comment on above: Order Comment: Speci men Type: BLOOD SPECIMENOrdering Facility: [facility] Address: [address] [place] [address] Performed By: #### 2 4323-8, 79746-6, 277-1, 2570-8 ####[facility] LABCLIA [id number] [place] [address] [place] Chloride [Moles/Vol] 106 mmol/L Normal 98-107 [facility] Comment on above: Order Comment: Speci men Type: BLOOD SPECIMENOrdering Facility: [facility] Address: [address] [place] [address] Performed By: #### 2 4323-8, 25995-7, 277-1, 8 ####[facility] LABCLIA [id number] [place] [address] [place] CO2 [Moles/Vol] 22 mmol/L Normal 22-30 [facility] Comment on above: Order Comment: Speci men Type: BLOOD SPECIMENOrdering Facility: [facility] Address: [address] [place] [address] Performed By: #### 2 4323-8, 34550-1, 277-1, 257-8 ####[facility] LABCLIA [id number] [place] [id number] [place] Creatinine [Mass/Vol] 0.53 mg/dL Low 0.58-0.96 [facility] Comment on above: Order Comment: Speci men Type: BLOOD SPECIMENOrdering Facility: [facility] Address: [address] [place] [address] Performed By: #### 2 4323-8, 29503-0, 277-1, 257-8 ####[facility] LABCLIA [id number] [place] [id number] Creatinine and Glomerular filtration rate.predicted panel (S/P/Bld) 119 mL/min/1.73m??? Normal >=60 [facility] Comment on above: Order Comment: Dora finch Type: BLOOD SPECIMENOrdering Facility: [facility] Address: [address] [place] [address] Result Comment: Zeny mated Glomerular Filtration Rate [...] actual GFR. Performed By: #### 2 4323-8, 31220-8, 2776-, 2571-01 ####[facility] LABCLIA [id number] [address] [place] Glucose [Mass/Vol] 115 mg/dL High 74-99 [facility] Comment on above: Order Comment: Dora finch Type: BLOOD SPECIMENOrdering Facility: [facility] Address: [address] [place] [address] Result Comment: The [place] Diabetes Association (ADA) provides guidance for cutoff [...] Standards of Medical Care in Diabetes 2016, [place] Diabetes Association. Diabetes Care. 2016.39(Suppl 1). Performed By: #### 2 4323-8, 59392-5, 2776-, 2570-8 ####[facility] LABCLIA [id number] [place] [id number] [place] Potassium [Moles/Vol] 3.3 mmol/L Low 3.7-5.1 [facility] Comment on above: Order Comment: Speci men Type: BLOOD SPECIMENOrdering Facility: [facility] Address: [address] [place] [address] Performed By: #### 2 4323-8, 93194-7, 2776-1, 8 ####[facility] LABCLIA [id number] [facility] [place] [id number] [place] Protein [Mass/Vol] 5.1 g/dL Low 6.3-8.0 [facility] Comment on above: Order Comment: Speci men Type: BLOOD SPECIMENOrdering Facility: [facility] Address: [address] [place] [address] Performed By: #### 2 4323-8, 67861-0, 2776-06, 8 ####[facility] LABCLIA [id number] [place] [id number] [place] Sodium [Moles/Vol] 138 mmol/L Normal 136-144 [facility] Comment on above: Order Comment: Speci men Type: BLOOD SPECIMENOrdering Facility: [facility] Address: [address] [place] [address] Performed By: #### 2 4323-8, 29878-0, 2776-06, 8 ####[facility] LABCLIA [id number] [place] [id number] [place] Urea nitrogen [Mass/Vol] 8 mg/dL Normal 7-21 [facility] Comment on above: Order Comment: Speci men Type: BLOOD SPECIMENOrdering Facility: [facility] Address: [address] [place] [address] Performed By: #### 2 4323-8, 34753-5, 2776-1, 2570-8 ####[facility] LABCLIA [id number] [facility] [id number] [place] [address] [place] Magnesium SerPl-mCncon 12-18 Magnesium [Mass/Vol] 1.8 mg/dL Normal 1.7-2.3 [facility] Comment on above: Order Comment: Speci men Type: BLOOD SPECIMENOrdering Facility: [facility] Address: [address] [place] [address] Performed By: #### 2 4323-8, 79614-4, 2777-1, 257-8 ####[facility] LABCLIA [id number] [place] [address] [place] Phosphate SerPl-mCncon 12-18 Phosphate [Mass/Vol] 3.8 mg/dL Normal 2.7-4.8 [facility] Comment on above: Order Comment: Speci men Type: BLOOD SPECIMENOrdering Facility: [facility] Address: [address] [place] [address] Performed By: #### 2 4323-8, 49757-0, 2777-1, 257-8 ####[facility] LABCLIA [id number] [place] [address] [place] TYPE + SCREENon 12-18-2024 ABO O Normal [facility] Comment on above: Order Comment: Speci men Type: BLOOD SPECIMENOrdering Facility: [facility] Address: [address] [place] [address] Performed By: #### T SCR ####[facility] BLOOD BANKCLIA [id number] [place] [address] [place] Rh Nom (Bld) Positive Normal [facility] Comment on above: Order Comment: Speci men Type: BLOOD SPECIMENOrdering Facility: [facility] Address: [address] [place] [address] Performed By: #### T SCR ####[facility] BLOOD BANKCLIA [id number] [place] [address] [place] TYPE AND SCREEN EXPIRATION 12/21/2024 23:59 Normal [facility] Comment on above: Order Comment: Speci men Type: BLOOD SPECIMENOrdering Facility: [facility] Address: [address] [place] [address] Performed By: #### T SCR ####[facility] BLOOD [facility] [id number] [place] [address] [place] Trigl SerPl-mCncon Triglyceride [Mass/Vol] 81 mg/dL Normal <150 [facility] Comment on above: Order Comment: Speci men Type: BLOOD SPECIMENOrdering Facility: [facility] Address: [address] [place] [address] Result Comment: <150 mg/dL, Normal 150-199 mg/dL, Borderline high 200-499 mg/dL, High>499 mg/dL, Very highReference:1. National Cholesterol Education Program ATP III Guideline At-A-Glance Quick Desk Reference: National Heart, Lung, and Blood Boss. National Institutes of Health. 2001: NIH Publication No. 01-3305. Performed By: #### 2 4323-8, 35212-2, 2777-1, 2571-8 ####[facility] [id number] [place] [address] [place] Triglyceride [Mass/Vol]on FASTING TIME 12 hrs Normal [facility] Comment on above: Order Comment: Speci men Type: BLOOD SPECIMENOrdering Facility: [facility] Address: [address] [place] [address] Performed By: #### 2 4323-8, 01821-9, 2777-1, 2571-8 ####[facility] [id number] [place] [id number] [place] Basic metabolic 2000 panelon 12-17-2024 Anion gap [Moles/Vol] 9 mmol/L Normal 8-15 [facility] Comment on above: Order Comment: Speci men Type: BLOOD SPECIMENOrdering Facility: [facility] Address: [address] [place] [address] Performed By: #### 2 4321-2 ####[facility] LABCLIA [id number] [place] [address] [place] Calcium [Mass/Vol] 8.0 mg/dL Low 8.5-10.2 [facility] Comment on above: Order Comment: Speci men Type: BLOOD SPECIMENOrdering Facility: [facility] Address: [address] [place] [address] Performed By: #### 2 4321-2 ####[facility] LABCLIA [id number] [facility] [place] [address] [place] Chloride [Moles/Vol] 104 mmol/L Normal 98-107 [facility] Comment on above: Order Comment: Speci men Type: BLOOD SPECIMENOrdering Facility: [facility] Address: [address] [place] [address] Performed By: #### 2 4321-2 ####[facility] LABCLIA [id number] [place] [address] [place] CO2 [Moles/Vol] 23 mmol/L Normal 22-30 [facility] Comment on above: Order Comment: Speci men Type: BLOOD SPECIMENOrdering Facility: [facility] Address: [address] [place] [address] Performed By: #### 2 4321-2 ####[facility] LABCLIA [id number] [place] [address] [place] Creatinine [Mass/Vol] 0.54 mg/dL Low 0.58-0.96 [facility] Comment on above: Order Comment: Speci men Type: BLOOD SPECIMENOrdering Facility: [facility] Address: [address] [place] [address] Performed By: #### 2 4321-2 ####[facility] LABCLIA [id number] [place] [id number] [place] Creatinine and Glomerular filtration rate.predicted panel (S/P/Bld) 119 mL/min/1.73m??? Normal >=60 [facility] Comment on above: Order Comment: Dora finch Type: BLOOD SPECIMENOrdering Facility: [facility] Address: [address] [place] [address] Result Comment: Zeny mated Glomerular Filtration Rate [...] actual GFR. Performed By: #### 2 4321-2 ####[facility] [id number] [place] [address] [place] Glucose [Mass/Vol] 152 mg/dL High 74-99 [facility] Comment on above: Order Comment: Dora finch Type: BLOOD SPECIMENOrdering Facility: [facility] Address: [address] [place] [address] Result Comment: The [place] Diabetes Association (ADA) provides guidance for cutoff [...] Standards of Medical Care in Diabetes 2016, [place] Diabetes Association. Diabetes Care. 2016.39(Suppl 1). Performed By: #### 2 4321-2 ####[facility] [id number] [place] [id number] [place] Potassium [Moles/Vol] 3.7 mmol/L Normal 3.7-5.1 [facility] Comment on above: Order Comment: Speci men Type: BLOOD SPECIMENOrdering Facility: [facility] Address: [address] [place] [address] Performed By: #### 2 4321-2 ####[facility] LABCLIA [id number] [address] [address] [place] Sodium [Moles/Vol] 136 mmol/L Normal 136-144 [facility] Comment on above: Order Comment: Speci men Type: BLOOD SPECIMENOrdering Facility: [facility] Address: [address] [place] [address] Performed By: #### 2 4321-2 ####[facility] LABCLIA [id number] [place] [address] [place] Urea nitrogen [Mass/Vol] 12 mg/dL Normal 7-21 [facility] Comment on above: Order Comment: Speci men Type: BLOOD SPECIMENOrdering Facility: [facility] Address: [address] [place] [address] Performed By: #### 2 4321-2 ####[facility] LABIA [id number] [place] [id number] [place] CASE MANAGEMon 12-17-2024 CASE MANAGEM Normal [facility] CBC W Auto Differential pane l (Bld)on 12-17-2024 Basophils (Bld) [#/Vol] 10*3/uL Normal <0.11 [facility] Comment on above: Order Comment: Speci men Type: BLOOD SPECIMENOrdering Facility: [facility] Address: [address] [place] [address] Performed By: #### 5 7021-8 ####[facility] LABCLIA [id number] [place] [id number] [place] Basophils/100 WBC (Bld) 0.2 % Normal [facility] Comment on above: Order Comment: Speci men Type: BLOOD SPECIMENOrdering Facility: [facility] Address: [address] [place] [address] Performed By: #### 5 7021-8 ####[facility] LABCLIA [id number] [address], [place] [address] [place] Differential cell count method Nom (Bld) Auto Normal [facility] Comment on above: Order Comment: Speci men Type: BLOOD SPECIMENOrdering Facility: [facility] Address: [address] [place] [address] Performed By: #### 5 7021-8 ####[facility] LABCLIA [id number] [address], [place] [address] [place] Eosinophils (Bld) [#/Vol] 0.29 10*3/uL Normal <0.46 [facility] Comment on above: Order Comment: Speci men Type: BLOOD SPECIMENOrdering Facility: [facility] Address: [address] [place] [address] Performed By: #### 5 7021-8 ####[facility] LABCLIA [id number] [place] [address] [place] Eosinophils/100 WBC (Bld) 3.3 % Normal [facility] Comment on above: Order Comment: Speci men Type: BLOOD SPECIMENOrdering Facility: [facility] Address: [address] [place] [address] Performed By: #### 5 7021-8 ####[facility] LABCLIA [id number] [place] [address] [place] Erythrocyte distribution width (RBC) [Ratio] 21.2 % High 11.5-15.0 [facility] Comment on above: Order Comment: Speci men Type: BLOOD SPECIMENOrdering Facility: [facility] Address: [address] [place] [address] Performed By: #### 5 7021-8 ####[facility] LABCLIA [id number] [place] [id number] [place] Hematocrit (Bld) [Volume fraction] 24.6 % Low 36.0-46.0 [facility] Comment on above: Order Comment: Speci men Type: BLOOD SPECIMENOrdering Facility: [facility] Address: [address] [place] [address] Performed By: #### 5 7021-8 ####[facility] LABCLIA [id number] [place] [address] [place] Hemoglobin (Bld) [Mass/Vol] 7.6 g/dL Low 11.5-15.5 [facility] Comment on above: Order Comment: Speci men Type: BLOOD SPECIMENOrdering Facility: [facility] Address: [address] [place] [address] Performed By: #### 5 7021-8 ####[facility] LABCLIA [id number] [place] [address] [place] Immature granulocytes (Bld) [#/Vol] 0.04 10*3/uL Normal <0.10 [facility] Comment on above: Order Comment: Speci men Type: BLOOD SPECIMENOrdering Facility: [facility] Address: [address] [place] [address] Performed By: #### 5 7021-8 ####[facility] LABIA [id number] [place] [address] [place] Immature granulocytes/100 WBC (Bld) 0.5 % Normal [facility] Comment on above: Order Comment: Speci men Type: BLOOD SPECIMENOrdering Facility: [facility] Address: [address] [place] [address] Performed By: #### 5 7021-8 ####[facility] LABCLIA [id number] [place] [address] [place] Lymphocytes (Bld) [#/Vol] 1.04 10*3/uL Normal 1.00-4.00 [facility] Comment on above: Order Comment: Speci men Type: BLOOD SPECIMENOrdering Facility: [facility] Address: [address] [place] [address] Performed By: #### 5 7021-8 ####[facility] LABIA [id number] [place] [address] [place] Lymphocytes/100 WBC (Bld) 11.7 % Normal [facility] Comment on above: Order Comment: Speci men Type: BLOOD SPECIMENOrdering Facility: [facility] Address: [address] [place] [address] Performed By: #### 5 7021-8 ####[facility] LABIA [id number] [place] [address] [place] MCH (RBC) [Entitic mass] 26.5 pg Normal 26.0-34.0 [facility] Comment on above: Order Comment: Speci men Type: BLOOD SPECIMENOrdering Facility: [facility] Address: [address] [place] [address] Performed By: #### 5 7021-8 ####[facility] LABIA [id number] [place] [address] [place] MCHC (RBC) [Mass/Vol] 30.9 g/dL Normal 30.5-36.0 [facility] Comment on above: Order Comment: Speci men Type: BLOOD SPECIMENOrdering Facility: [facility] Address: [address] [place] [address] Performed By: #### 5 7021-8 ####[facility] LABIA [id number] [place] [address] [place] MCV (RBC) [Entitic vol] 85.7 fL Normal 80.0-100.0 [facility] Comment on above: Order Comment: Speci men Type: BLOOD SPECIMENOrdering Facility: [facility] Address: [address] [place] [address] Performed By: #### 5 7021-8 ####[facility] LABIA [id number] [place] [address] [place] Monocytes (Bld) [#/Vol] 0.61 10*3/uL Normal <0.87 [facility] Comment on above: Order Comment: Speci men Type: BLOOD SPECIMENOrdering Facility: [facility] Address: [address] [place] [address] Performed By: #### 5 7021-8 ####[facility] LABCLIA [id number] [facility] [place] [address] [place] Monocytes/100 WBC (Bld) 6.9 % Normal [facility] Comment on above: Order Comment: Speci men Type: BLOOD SPECIMENOrdering Facility: [facility] Address: [address] [place] [address] Performed By: #### 5 7021-8 ####[facility] LABCLIA [id number] [facility] [address] [place] Neutrophils (Bld) [#/Vol] 6.88 10*3/uL Normal 1.45-7.50 [facility] Comment on above: Order Comment: Speci men Type: BLOOD SPECIMENOrdering Facility: [facility] Address: [address] [place] [address] Performed By: #### 5 7021-8 ####[facility] LABCLIA [id number] [place] [address] [place] Neutrophils/100 WBC (Bld) 77.4 % Normal [facility] Comment on above: Order Comment: Speci men Type: BLOOD SPECIMENOrdering Facility: [facility] Address: [address] [place] [address] Performed By: #### 5 7021-8 ####[facility] LABCLIA [id number] [place] [address] [place] Nucleated RBC (Bld) [#/Vol] 10*3/uL Normal <0.01 [facility] Comment on above: Order Comment: Speci men Type: BLOOD SPECIMENOrdering Facility: [facility] Address: [address] [place] [address] Performed By: #### 5 7021-8 ####[facility] LABCLIA [id number] [address] [place] [address] [place] Nucleated RBC/100 WBC (Bld) [Ratio] 0.0 /100 WBC Normal [facility] Comment on above: Order Comment: Speci men Type: BLOOD SPECIMENOrdering Facility: [facility] Address: [address] [place] [address] Performed By: #### 5 7021-8 ####[facility] LABCLIA [id number] [address] [place] [address] [place] Platelet mean volume (Bld) [Entitic vol] 9.5 fL Normal 9.0-12.7 [facility] Comment on above: Order Comment: Speci men Type: BLOOD SPECIMENOrdering Facility: [facility] Address: [address] [place] [address] Performed By: #### 5 7021-8 ####[facility] LABIA [id number] [address], [place] [address] [place] Platelets (Bld) [#/Vol] 245 10*3/uL Normal 150-400 [facility] Comment on above: Order Comment: Speci men Type: BLOOD SPECIMENOrdering Facility: [facility] Address: [address] [place] [address] Performed By: #### 5 7021-8 ####[facility] LABCLIA [id number] [address] [place] [address] [place] RBC (Bld) [#/Vol] 2.87 10*6/uL Low 3.90-5.20 [facility] Comment on above: Order Comment: Speci men Type: BLOOD SPECIMENOrdering Facility: [facility] Address: [address] [place] [address] Performed By: #### 5 7021-8 ####[facility] LABIA [id number] [address], [facility] [place] WBC (Bld) [#/Vol] 8.88 10*3/uL Normal 3.70-11.00 [facility] Comment on above: Order Comment: Speci men Type: BLOOD SPECIMENOrdering Facility: [facility] Address: [address] [place], [place] [address] Performed By: #### 5 7021-8 ####[facility] LABCLIA [id number] [place] [id number] [place] CONSULT PROGon 12-17-2024 CONSULT PROG Normal [facility] CONSULT PROG Normal [facility] CRP SerPl-mCncon 12-17-2024 CRP [Mass/Vol] 10.3 mg/dL High <0.9 [facility] Comment on above: Order Comment: Speci men Type: BLOOD SPECIMENOrdering Facility: [facility] Address: [address] [place] [address] Performed By: #### 1 988-5 ####[facility] LABCLIA [id number] [place] [id number] [place] Comprehensive metabolic 2000 panelon 12-17-2024 Albumin [Mass/Vol] 2.6 g/dL Low 3.9-4.9 [facility] Comment on above: Order Comment: Speci men Type: BLOOD SPECIMENOrdering Facility: [facility] Address: [address] [place] [address] Performed By: #### 2 4323-8, 21715-1, 2777-1 ####[facility] LABCLIA [id number] [place] [id number] [place] ALP [Catalytic activity/Vol] 80 U/L Normal 34-123 [facility] Comment on above: Order Comment: Speci men Type: BLOOD SPECIMENOrdering Facility: [facility] Address: [address] [place] [address] Performed By: #### 2 4323-8, , 2777-1 ####[facility] LABCLIA [id number] [address] [place] [address] [place] ALT [Catalytic activity/Vol] 14 U/L Normal 7-38 [facility] Comment on above: Order Comment: Speci men Type: BLOOD SPECIMENOrdering Facility: [facility] Address: [address] [place] [address] Performed By: #### 2 4323-8, 04209-1, 2776-06 ####[facility] LABCLIA [id number] [address] [place] [address] [place] Anion gap [Moles/Vol] 12 mmol/L Normal 8-15 [facility] Comment on above: Order Comment: Speci men Type: BLOOD SPECIMENOrdering Facility: [facility] Address: [address] [place] [address] Performed By: #### 2 4323-8, , 2776-06 ####[facility] LABCLIA [id number] [place] [id number] [place] AST [Catalytic activity/Vol] 7 U/L Low 13-35 [facility] Comment on above: Order Comment: Speci men Type: BLOOD SPECIMENOrdering Facility: [facility] Address: [address] [place] [address] Performed By: #### 2 4323-8, , 2776-06 ####[facility] LABCLIA [id number] [address], [facility] [place] Bilirubin [Mass/Vol] 0.3 mg/dL Normal 0.2-1.3 [facility] Comment on above: Order Comment: Speci men Type: BLOOD SPECIMENOrdering Facility: [facility] Address: [address] [place] [address] Performed By: #### 2 4323-8, , 2776-06 ####[facility] LABCLIA [id number] [address] [place] [address] [place] Calcium [Mass/Vol] 8.5 mg/dL Normal 8.5-10.2 [facility] Comment on above: Order Comment: Speci men Type: BLOOD SPECIMENOrdering Facility: [facility] Address: [address] [place], [place] [address] Performed By: #### 2 4323-8, , 2776-06 ####[facility] LABCLIA [id number] [facility] [address] [place] [address] [place] Chloride [Moles/Vol] 102 mmol/L Normal 98-107 [facility] Comment on above: Order Comment: Speci men Type: BLOOD SPECIMENOrdering Facility: [facility] Address: [address] [place] [address] Performed By: #### 2 4323-8, , 2776-06 ####[facility] LABCLIA [id number] [facility] [place] [id number] [place] CO2 [Moles/Vol] 23 mmol/L Normal 22-30 [facility] Comment on above: Order Comment: Speci men Type: BLOOD SPECIMENOrdering Facility: [facility] [facility] Address: [address] [place] [address] Performed By: #### 2 4323-8, , 2776-06 ####[facility] LABCLIA [id number] [facility] [address], [facility]95 [place] Creatinine [Mass/Vol] 0.58 mg/dL Normal 0.58-0.96 [facility] Comment on above: Order Comment: Speci men Type: BLOOD SPECIMENOrdering Facility: [facility] Address: [address] [place], [place] [address] Performed By: #### 2 4323-8, , 2776-06 ####[facility] LABCLIA [id number] [facility] [address] [place] [address] [place] Creatinine and Glomerular filtration rate.predicted panel (S/P/Bld) 117 mL/min/1.73m??? Normal >=60 [facility] Comment on above: Order Comment: Dora finch Type: BLOOD SPECIMENOrdering Facility: [facility] Address: [address] [place] [address] Result Comment: Zeny mated Glomerular Filtration Rate [...] actual GFR. Performed By: #### 2 4323-8, 06926-6, 2776- ####[facility] [id number] [place] [address] [place] Glucose [Mass/Vol] 131 mg/dL High 74-99 [facility] Comment on above: Order Comment: Dora finch Type: BLOOD SPECIMENOrdering Facility: [facility] Address: [address] [place] [address] Result Comment: The [place] Diabetes Association (ADA) provides guidance for cutoff [...] Standards of Medical Care in Diabetes 2016, [place] Diabetes [employer]. Diabetes Care. 2016.39(Suppl 1). Performed By: #### 2 4323-8, 04269-2, 2776- ####[facility] LABIA [id number] [address] [address] [place] Potassium [Moles/Vol] 2.9 mmol/L Low 3.7-5.1 [facility] Comment on above: Order Comment: Speci men Type: BLOOD SPECIMENOrdering Facility: [facility] Address: [address] [place], [place] [address] Performed By: #### 2 4323-8, , 2776-06 ####[facility] LABCLIA [id number] [address] [address] [place] Protein [Mass/Vol] 5.5 g/dL Low 6.3-8.0 [facility] Comment on above: Order Comment: Speci men Type: BLOOD SPECIMENOrdering Facility: [facility] Address: [address] [place], [place] [address] Performed By: #### 2 4323-8, , 2776-06 ####[facility] LABCLIA [id number] [address] [address] [place] Sodium [Moles/Vol] 137 mmol/L Normal 136-144 [facility] Comment on above: Order Comment: Speci men Type: BLOOD SPECIMENOrdering Facility: [facility] Address: [address] [place], [place] [address] Performed By: #### 2 4323-8, , 2776-06 ####[facility] LABCLIA [id number] [address] [address] [place] Urea nitrogen [Mass/Vol] 11 mg/dL Normal 7-21 [facility] Comment on above: Order Comment: Speci men Type: BLOOD SPECIMENOrdering Facility: [facility] Address: [address] [place], [place] [address] Performed By: #### 2 4323-8, , 2776-06 ####[facility] LABCLIA [id number] [address] [address] [place] Magnesium SerPl-mCncon 12-17 Magnesium [Mass/Vol] 1.8 mg/dL Normal 1.7-2.3 [facility] Comment on above: Order Comment: Speci men Type: BLOOD SPECIMENOrdering Facility: [facility] Address: [address] [place] [address] Performed By: #### 2 4323-8, 27467-3, 7- ####[facility] LABCLIA [id number] [address] [place] [address] [place] Phosphate SerPl-mCncon 12-17 Phosphate [Mass/Vol] 3.1 mg/dL Normal 2.7-4.8 [facility] Comment on above: Order Comment: Speci men Type: BLOOD SPECIMENOrdering Facility: [facility] Address: [address] [place] [address] Performed By: #### 2 4323-8, , 2776-06 ####[facility] LABCLIA [id number] [address], [place] [address] [place] CBC W Auto Differential pane l (Bld)on 12-16-2024 Basophils (Bld) [#/Vol] 10*3/uL Normal <0.11 [facility] Comment on above: Order Comment: Speci men Type: BLOOD SPECIMENOrdering Facility: [facility] Address: [address] [place] [address] Performed By: #### 5 7021-8 ####[facility] LABCLIA [id number] [address], [facility]95 [place] Basophils/100 WBC (Bld) 0.2 % Normal [facility] Comment on above: Order Comment: Speci men Type: BLOOD SPECIMENOrdering Facility: [facility] Address: [address] [place] [address] Performed By: #### 5 7021-8 ####[facility] LABCLIA [id number] [address], [facility]95 [place] Differential cell count method Nom (Bld) Auto Normal [facility] Comment on above: Order Comment: Speci men Type: BLOOD SPECIMENOrdering Facility: [facility] Address: [address] [place] [address] Performed By: #### 5 7021-8 ####[facility] LABCLIA [id number] [address], [place] [address] [place] Eosinophils (Bld) [#/Vol] 0.32 10*3/uL Normal <0.46 [facility] Comment on above: Order Comment: Speci men Type: BLOOD SPECIMENOrdering Facility: [facility] Address: [address] [place] [address] Performed By: #### 5 7021-8 ####[facility] LABCLIA [id number] [address], [place] [address] [place] Eosinophils/100 WBC (Bld) 3.7 % Normal [facility] Comment on above: Order Comment: Speci men Type: BLOOD SPECIMENOrdering Facility: [facility] Address: [address] [place] [address] Performed By: #### 5 7021-8 ####[facility] LABCLIA [id number] [address], [facility]95 [place] Erythrocyte distribution width (RBC) [Ratio] 21.1 % High 11.5-15.0 [facility] Comment on above: Order Comment: Speci men Type: BLOOD SPECIMENOrdering Facility: [facility] Address: [address] [place] [address] Performed By: #### 5 7021-8 ####[facility] LABCLIA [id number] [address], [facility]95 [place] Hematocrit (Bld) [Volume fraction] 24.0 % Low 36.0-46.0 [facility] Comment on above: Order Comment: Speci men Type: BLOOD SPECIMENOrdering Facility: [facility] Address: [address] [place] [address] Performed By: #### 5 7021-8 ####[facility] LABCLIA [id number] [address], [facility]95 [place] Hemoglobin (Bld) [Mass/Vol] 7.4 g/dL Low 11.5-15.5 [facility] Comment on above: Order Comment: Speci men Type: BLOOD SPECIMENOrdering Facility: [facility] Address: [address] [place] [address] Performed By: #### 5 7021-8 ####[facility] LABCLIA [id number] [place] [address] [place] Immature granulocytes (Bld) [#/Vol] 0.04 10*3/uL Normal <0.10 [facility] Comment on above: Order Comment: Speci men Type: BLOOD SPECIMENOrdering Facility: [facility] Address: [address] [place] [address] Performed By: #### 5 7021-8 ####[facility] LABCLIA [id number] [place] [address] [place] Immature granulocytes/100 WBC (Bld) 0.5 % Normal [facility] Comment on above: Order Comment: Speci men Type: BLOOD SPECIMENOrdering Facility: [facility] Address: [address] [place] [address] Performed By: #### 5 7021-8 ####[facility] LABCLIA [id number] [place] [address] [place] Lymphocytes (Bld) [#/Vol] 1.03 10*3/uL Normal 1.00-4.00 [facility] Comment on above: Order Comment: Speci men Type: BLOOD SPECIMENOrdering Facility: [facility] Address: [address] [place] [address] Performed By: #### 5 7021-8 ####[facility] LABCLIA [id number] [place] [address] [place] Lymphocytes/100 WBC (Bld) 11.9 % Normal [facility] Comment on above: Order Comment: Speci men Type: BLOOD SPECIMENOrdering Facility: [facility] Address: [address] [place] [address] Performed By: #### 5 7021-8 ####[facility] LABIA [id number] [place] [address] [place] [facility] MCH (RBC) [Entitic mass] 26.9 pg Normal 26.0-34.0 [facility] Comment on above: Order Comment: Speci men Type: BLOOD SPECIMENOrdering Facility: [facility] Address: [address] [place] [address] Performed By: #### 5 7021-8 ####[facility] LABIA [id number] [place] [address] [place] MCHC (RBC) [Mass/Vol] 30.8 g/dL Normal 30.5-36.0 [facility] Comment on above: Order Comment: Speci men Type: BLOOD SPECIMENOrdering Facility: [facility] Address: [address] [place] [address] Performed By: #### 5 7021-8 ####[facility] LABIA [id number] [place] [address] [place] MCV (RBC) [Entitic vol] 87.3 fL Normal 80.0-100.0 [facility] Comment on above: Order Comment: Speci men Type: BLOOD SPECIMENOrdering Facility: [facility] Address: [address] [place] [address] Performed By: #### 5 7021-8 ####[facility] LABIA [id number] [place] [address] [place] Monocytes (Bld) [#/Vol] 0.59 10*3/uL Normal <0.87 [facility] Comment on above: Order Comment: Speci men Type: BLOOD SPECIMENOrdering Facility: [facility] Address: [address] [place] [address] Performed By: #### 5 7021-8 ####[facility] LABCLIA [id number] [place] [address] [place] Monocytes/100 WBC (Bld) 6.8 % Normal [facility] Comment on above: Order Comment: Speci men Type: BLOOD SPECIMENOrdering Facility: [facility] Address: [address] [place] [address] Performed By: #### 5 7021-8 ####[facility] LABCLIA [id number] [place] [address] [place] Neutrophils (Bld) [#/Vol] 6.65 10*3/uL Normal 1.45-7.50 [facility] Comment on above: Order Comment: Speci men Type: BLOOD SPECIMENOrdering Facility: [facility] Address: [address] [place] [address] Performed By: #### 5 7021-8 ####[facility] LABCLIA [id number] [place] [address] [place] Neutrophils/100 WBC (Bld) 76.9 % Normal [facility] Comment on above: Order Comment: Speci men Type: BLOOD SPECIMENOrdering Facility: [facility] Address: [address] [place] [address] Performed By: #### 5 7021-8 ####[facility] LABIA [id number] [place] [address] [place] Nucleated RBC (Bld) [#/Vol] 10*3/uL Normal <0.01 [facility] Comment on above: Order Comment: Speci men Type: BLOOD SPECIMENOrdering Facility: [facility] Address: [address] [place] [address] Performed By: #### 5 7021-8 ####[facility] LABCLIA [id number] [place] [address] [place] Nucleated RBC/100 WBC (Bld) [Ratio] 0.0 /100 WBC Normal [facility] Comment on above: Order Comment: Speci men Type: BLOOD SPECIMENOrdering Facility: [facility] Address: [address] [place] [address] Performed By: #### 5 7021-8 ####[facility] LABIA [id number] [place] [address] [place] Platelet mean volume (Bld) [Entitic vol] 10.0 fL Normal 9.0-12.7 [facility] Comment on above: Order Comment: Speci men Type: BLOOD SPECIMENOrdering Facility: [facility] Address: [address] [place] [address] Performed By: #### 5 7021-8 ####[facility] LABIA [id number] [place] [address] [place] Platelets (Bld) [#/Vol] 225 10*3/uL Normal 150-400 [facility] Comment on above: Order Comment: Speci men Type: BLOOD SPECIMENOrdering Facility: [facility] Address: [address] [place] [address] Performed By: #### 5 7021-8 ####[facility] LABIA [id number] [place] [address] [place] RBC (Bld) [#/Vol] 2.75 10*6/uL Low 3.90-5.20 [facility] Comment on above: Order Comment: Speci men Type: BLOOD SPECIMENOrdering Facility: [facility] Address: [address] [place] [address] Performed By: #### 5 7021-8 ####[facility] LABIA [id number] [place] [address] [place] WBC (Bld) [#/Vol] 8.65 10*3/uL Normal 3.70-11.00 [facility] Comment on above: Order Comment: Speci men Type: BLOOD SPECIMENOrdering Facility: [facility] Address: [address] [place] [address] Performed By: #### 5 7021-8 ####[facility] LABCLIA [id number] [address] [address] [place] Comprehensive metabolic 2000 panelon 12-16-2024 Albumin [Mass/Vol] 2.8 g/dL Low 3.9-4.9 [facility] Comment on above: Order Comment: Speci men Type: BLOOD SPECIMENOrdering Facility: [facility] Address: [address] [place] [address] Performed By: #### 2 4323-8, , 2776- ####[facility] LABCLIA [id number] [place] [address] [place] ALP [Catalytic activity/Vol] 84 U/L Normal 34-123 [facility] Comment on above: Order Comment: Speci men Type: BLOOD SPECIMENOrdering Facility: [facility] Address: [address] [place] [address] Performed By: #### 2 4323-8, , 2776-06 ####[facility] LABCLIA [id number] [place] [address] [place] ALT [Catalytic activity/Vol] 16 U/L Normal 7-38 [facility] Comment on above: Order Comment: Speci men Type: BLOOD SPECIMENOrdering Facility: [facility] Address: [address] [place] [address] Performed By: #### 2 4323-8, , 2776-06 ####[facility] LABCLIA [id number] [address] [address] [place] Anion gap [Moles/Vol] 12 mmol/L Normal 8-15 [facility] Comment on above: Order Comment: Speci men Type: BLOOD SPECIMENOrdering Facility: [facility] Address: [address] [place] [address] Performed By: #### 2 4323-8, , 2776- ####[facility] LABCLIA [id number] [address] [place] [address] [place] AST [Catalytic activity/Vol] 11 U/L Low 13-35 [facility] Comment on above: Order Comment: Speci men Type: BLOOD SPECIMENOrdering Facility: [facility] Address: [address] [place] [address] Performed By: #### 2 4323-8, , 2776-06 ####[facility] LABCLIA [id number] [address] [place] [address] [place] Bilirubin [Mass/Vol] 0.3 mg/dL Normal 0.2-1.3 [facility] Comment on above: Order Comment: Speci men Type: BLOOD SPECIMENOrdering Facility: [facility] Address: [address] [place] [address] Performed By: #### 2 4323-8, , 2776-06 ####[facility] LABCLIA [id number] [address], [facility]95 [place] Calcium [Mass/Vol] 8.6 mg/dL Normal 8.5-10.2 [facility] Comment on above: Order Comment: Speci men Type: BLOOD SPECIMENOrdering Facility: [facility] Address: [address] [place] [address] Performed By: #### 2 4323-8, , 2776-06 ####[facility] LABCLIA [id number] [place] [address] [place] Chloride [Moles/Vol] 101 mmol/L Normal 98-107 [facility] Comment on above: Order Comment: Speci men Type: BLOOD SPECIMENOrdering Facility: [facility] Address: [address] [place] [address] Performed By: #### 2 4323-8, , 2776-06 ####[facility] LABCLIA [id number] [address] [address] [place] CO2 [Moles/Vol] 23 mmol/L Normal 22-30 [facility] Comment on above: Order Comment: Speci men Type: BLOOD SPECIMENOrdering Facility: [facility] Address: [address] [place] [address] Performed By: #### 2 4323-8, 62462-2, 2776-06 ####[facility] LABCLIA [id number] [place] [address] [place] Creatinine [Mass/Vol] 0.64 mg/dL Normal 0.58-0.96 [facility] Comment on above: Order Comment: Speci men Type: BLOOD SPECIMENOrdering Facility: [facility] Address: [address] [place] [address] Performed By: #### 2 4323-8, , 2776-06 ####[facility] LABIA [id number] [place] [address] [place] Creatinine and Glomerular filtration rate.predicted panel (S/P/Bld) 114 mL/min/1.73m??? Normal >=60 [facility] Comment on above: Order Comment: Dora finch Type: BLOOD SPECIMENOrdering Facility: [facility] Address: [address] [place] [address] Result Comment: Zeny mated Glomerular Filtration Rate [...] Performed By: #### 2 4323-8, , 2776-06 ####[facility] LABCLIA [id number] [place] [address] [place] Glucose [Mass/Vol] 140 mg/dL High 74-99 [facility] Comment on above: Order Comment: Speci men Type: BLOOD SPECIMENOrdering Facility: [facility] Address: [address] [place], [place] [address] Result Comment: The [place] Diabetes Association (ADA) provides guidance for cutoff [...] Standards of Medical Care in Diabetes 2016, [place] [employer]. Diabetes Care. 2016.39(Suppl 1). Performed By: #### 2 4323-8, , 2776-06 ####[facility] LABCLIA [id number] [place] [address] [place] Potassium [Moles/Vol] 2.8 mmol/L Low 3.7-5.1 [facility] Comment on above: Order Comment: Speci men Type: BLOOD SPECIMENOrdering Facility: [facility] Address: [address] [place], [place] [address] Performed By: #### 2 4323-8, , 2776-06 ####[facility] LABCLIA [id number] [address] [address] [place] Protein [Mass/Vol] 5.7 g/dL Low 6.3-8.0 [facility] Comment on above: Order Comment: Speci men Type: BLOOD SPECIMENOrdering Facility: [facility] Address: [address] [place], [place] [address] Performed By: #### 2 4323-8, , 2776-06 ####[facility] LABCLIA [id number] [address] [address] [place] Sodium [Moles/Vol] 136 mmol/L Normal 136-144 [facility] Comment on above: Order Comment: Speci men Type: BLOOD SPECIMENOrdering Facility: [facility] Address: [address] [place] [address] Performed By: #### 2 4323-8, , 2776-06 ####[facility] LABCLIA [id number] [place] [address] [place] Urea nitrogen [Mass/Vol] 11 mg/dL Normal 7-21 [facility] Comment on above: Order Comment: Speci men Type: BLOOD SPECIMENOrdering Facility: [facility] Address: [address] [place] [address] Performed By: #### 2 4323-8, , 2776-06 ####[facility] LABIA [id number] [place] [address] [place] Magnesium SerPl-mCncon 12-16 Magnesium [Mass/Vol] 1.9 mg/dL Normal 1.7-2.3 [facility] Comment on above: Order Comment: Speci men Type: BLOOD SPECIMENOrdering Facility: [facility] Address: [address] [place] [address] Performed By: #### 2 4323-8, , 2776-06 ####[facility] [id number] [place] [address] [place] Phosphate SerPl-mCncon 12-16 Phosphate [Mass/Vol] 2.4 mg/dL Low 2.7-4.8 [facility] Comment on above: Order Comment: Speci men Type: BLOOD SPECIMENOrdering Facility: [facility] Address: [address] [place] [address] Performed By: #### 2 4323-8, , 2776-06 ####[facility] LABIA [id number] [place] [address] [place] Vancomycin [place] SerPl-mCncon 12-16-2024 Vancomycin random [Mass/Vol] 11.6 ug/mL Normal 10.0-20.0 [facility] Comment on above: Order Comment: Speci men Type: BLOOD SPECIMENOrdering Facility: [facility] Address: [address] [place] [address] Result Comment: Refe rence ranges and high/low indicator flags are provided as general guidelines only. The treating physician must determine appropriate target levels/dosing based on the specific clinical situation. Performed By: #### 4 091-5 ####[facility] LABCLIA [id number] [place] [address] [place] CBC W Auto Differential pane l (Bld)on 12-15-2024 Basophils (Bld) [#/Vol] 0.03 10*3/uL Normal <0.11 [facility] Comment on above: Order Comment: Speci men Type: BLOOD SPECIMENOrdering Facility: [facility] Address: [address] [place] [address] Performed By: #### 5 7021-8 ####[facility] LABCLIA [id number] [place] [address] [place] Basophils/100 WBC (Bld) 0.3 % Normal [facility] Comment on above: Order Comment: Speci men Type: BLOOD SPECIMENOrdering Facility: [facility] Address: [address] [place] [address] Performed By: #### 5 7021-8 ####[facility] LABCLIA [id number] [place] [address] [place] Differential cell count method Nom (Bld) Auto Normal [facility] Comment on above: Order Comment: Speci men Type: BLOOD SPECIMENOrdering Facility: [facility] Address: [address] [place] [address] Performed By: #### 5 7021-8 ####[facility] LABCLIA [id number] [place] [id number] [place] Eosinophils (Bld) [#/Vol] 0.38 10*3/uL Normal <0.46 [facility] Comment on above: Order Comment: Speci men Type: BLOOD SPECIMENOrdering Facility: [facility] Address: [address] [place] [address] Performed By: #### 5 7021-8 ####[facility] LABCLIA [id number] [facility] [address] [place] Eosinophils/100 WBC (Bld) 3.4 % Normal [facility] Comment on above: Order Comment: Speci men Type: BLOOD SPECIMENOrdering Facility: [facility] Address: [address] [place] [address] Performed By: #### 5 7021-8 ####[facility] LABIA [id number] [address], [place] [address] [place] Erythrocyte distribution width (RBC) [Ratio] 21.5 % High 11.5-15.0 [facility] Comment on above: Order Comment: Speci men Type: BLOOD SPECIMENOrdering Facility: [facility] Address: [address] [place] [address] Performed By: #### 5 7021-8 ####[facility] LABIA [id number] [place] [address] [place] Hematocrit (Bld) [Volume fraction] 25.3 % Low 36.0-46.0 [facility] Comment on above: Order Comment: Speci men Type: BLOOD SPECIMENOrdering Facility: [facility] Address: [address] [place] [address] Performed By: #### 5 7021-8 ####[facility] LABIA [id number] [place] [address] [place] Hemoglobin (Bld) [Mass/Vol] 7.6 g/dL Low 11.5-15.5 [facility] Comment on above: Order Comment: Speci men Type: BLOOD SPECIMENOrdering Facility: [facility] Address: [address] [place] [address] Performed By: #### 5 7021-8 ####[facility] LABCLIA [id number] [place] [address] [place] Immature granulocytes (Bld) [#/Vol] 0.08 10*3/uL Normal <0.10 [facility] Comment on above: Order Comment: Speci men Type: BLOOD SPECIMENOrdering Facility: [facility] Address: [address] [place] [address] Performed By: #### 5 7021-8 ####[facility] LABCLIA [id number] [address] [place] Immature granulocytes/100 WBC (Bld) 0.7 % Normal [facility] Comment on above: Order Comment: Speci men Type: BLOOD SPECIMENOrdering Facility: [facility] Address: [address] [place] [address] Performed By: #### 5 7021-8 ####[facility] LABCLIA [id number] [place] [address] [place] Lymphocytes (Bld) [#/Vol] 1.39 10*3/uL Normal 1.00-4.00 [facility] Comment on above: Order Comment: Speci men Type: BLOOD SPECIMENOrdering Facility: [facility] Address: [address] [place] [address] Performed By: #### 5 7021-8 ####[facility] LABCLIA [id number] [place] [id number] [place] Lymphocytes/100 WBC (Bld) 12.5 % Normal [facility] Comment on above: Order Comment: Speci men Type: BLOOD SPECIMENOrdering Facility: [facility] Address: [address] [place] [address] Performed By: #### 5 7021-8 ####[facility] LABCLIA [id number] [place] [id number] [place] MCH (RBC) [Entitic mass] 26.4 pg Normal 26.0-34.0 [facility] Comment on above: Order Comment: Speci men Type: BLOOD SPECIMENOrdering Facility: [facility] Address: [address] [place] [address] Performed By: #### 5 7021-8 ####[facility] LABCLIA [id number] [place] [address] [place] MCHC (RBC) [Mass/Vol] 30.0 g/dL Low 30.5-36.0 [facility] Comment on above: Order Comment: Speci men Type: BLOOD SPECIMENOrdering Facility: [facility] Address: [address] [place] [address] Performed By: #### 5 7021-8 ####[facility] LABIA [id number] [place] [address] [place] MCV (RBC) [Entitic vol] 87.8 fL Normal 80.0-100.0 [facility] Comment on above: Order Comment: Speci men Type: BLOOD SPECIMENOrdering Facility: [facility] Address: [address] [place] [address] Performed By: #### 5 7021-8 ####[facility] LABIA [id number] [place] [address] [place] Monocytes (Bld) [#/Vol] 0.82 10*3/uL Normal <0.87 [facility] Comment on above: Order Comment: Speci men Type: BLOOD SPECIMENOrdering Facility: [facility] Address: [address] [place] [address] Performed By: #### 5 7021-8 ####[facility] LABCLIA [id number] [address] [place] Monocytes/100 WBC (Bld) 7.4 % Normal [facility] Comment on above: Order Comment: Speci men Type: BLOOD SPECIMENOrdering Facility: [facility] Address: [address] [place] [address] Performed By: #### 5 7021-8 ####[facility] LABCLIA [id number] [address], [place] [address] [place] Neutrophils (Bld) [#/Vol] 8.45 10*3/uL High 1.45-7.50 [facility] Comment on above: Order Comment: Speci men Type: BLOOD SPECIMENOrdering Facility: [facility] Address: [address] [place] [address] Performed By: #### 5 7021-8 ####[facility] LABCLIA [id number] [address], [place] [address] [place] Neutrophils/100 WBC (Bld) 75.7 % Normal [facility] Comment on above: Order Comment: Speci men Type: BLOOD SPECIMENOrdering Facility: [facility] Address: [address] [place] [address] Performed By: #### 5 7021-8 ####[facility] LABCLIA [id number] [address], [place] [address] [place] Nucleated RBC (Bld) [#/Vol] 10*3/uL Normal <0.01 [facility] Comment on above: Order Comment: Speci men Type: BLOOD SPECIMENOrdering Facility: [facility] Address: [address] [place] [address] Performed By: #### 5 7021-8 ####[facility] LABCLIA [id number] [facility] [address], [facility]95 [place] Nucleated RBC/100 WBC (Bld) [Ratio] 0.0 /100 WBC Normal [facility] Comment on above: Order Comment: Speci men Type: BLOOD SPECIMENOrdering Facility: [facility] Address: [address] [place] [address] Performed By: #### 5 7021-8 ####[facility] LABCLIA [id number] [place] [address] [place] Platelet mean volume (Bld) [Entitic vol] 10.1 fL Normal 9.0-12.7 [facility] Comment on above: Order Comment: Speci men Type: BLOOD SPECIMENOrdering Facility: [facility] Address: [address] [place] [address] Performed By: #### 5 7021-8 ####[facility] LABIA [id number] [place] [address] [place] Platelets (Bld) [#/Vol] 209 10*3/uL Normal 150-400 [facility] Comment on above: Order Comment: Speci men Type: BLOOD SPECIMENOrdering Facility: [facility] Address: [address] [place] [address] Performed By: #### 5 7021-8 ####[facility] LABIA [id number] [place] [address] [place] RBC (Bld) [#/Vol] 2.88 10*6/uL Low 3.90-5.20 [facility] Comment on above: Order Comment: Speci men Type: BLOOD SPECIMENOrdering Facility: [facility] Address: [address] [place] [address] Performed By: #### 5 7021-8 ####[facility] LABIA [id number] [place] [address] [place] WBC (Bld) [#/Vol] 11.15 10*3/uL High 3.70-11.00 [facility] Comment on above: Order Comment: Speci men Type: BLOOD SPECIMENOrdering Facility: [facility] Address: [address] [place] [address] Performed By: #### 5 7021-8 ####[facility] LABIA [id number] [place] [id number] [place] CBC panel Auto (Bld)on 12-15 Erythrocyte distribution width (RBC) [Ratio] 21.4 % High 11.5-15.0 [facility] Comment on above: Order Comment: Speci men Type: BLOOD SPECIMENOrdering Facility: [facility] Address: [address] [place] [address] Performed By: #### 5 8410-2 ####[facility] LABIA [id number] [place] [address] [place] Hematocrit (Bld) [Volume fraction] 25.5 % Low 36.0-46.0 [facility] Comment on above: Order Comment: Speci men Type: BLOOD SPECIMENOrdering Facility: [facility] Address: [address] [place] [address] Performed By: #### 5 8410-2 ####[facility] LABIA [id number] [place] [address] [place] Hemoglobin (Bld) [Mass/Vol] 7.7 g/dL Low 11.5-15.5 [facility] Comment on above: Order Comment: Speci men Type: BLOOD SPECIMENOrdering Facility: [facility] Address: [address] [place] [address] Performed By: #### 5 8410-2 ####[facility] LABIA [id number] [place] [address] [place] MCH (RBC) [Entitic mass] 26.6 pg Normal 26.0-34.0 [facility] Comment on above: Order Comment: Speci men Type: BLOOD SPECIMENOrdering Facility: [facility] Address: [address] [place] [address] Performed By: #### 5 8410-2 ####[facility] LABIA [id number] [place] [address] [place] MCHC (RBC) [Mass/Vol] 30.2 g/dL Low 30.5-36.0 [facility] Comment on above: Order Comment: Speci men Type: BLOOD SPECIMENOrdering Facility: [facility] Address: [address] [place] [address] Performed By: #### 5 8410-2 ####[facility] LABCLIA [id number] [place] [address] [place] MCV (RBC) [Entitic vol] 87.9 fL Normal 80.0-100.0 [facility] Comment on above: Order Comment: Speci men Type: BLOOD SPECIMENOrdering Facility: [facility] Address: [address] [place] [address] Performed By: #### 5 8410-2 ####[facility] LABIA [id number] [place] [address] [place] Nucleated RBC (Bld) [#/Vol] 10*3/uL Normal <0.01 [facility] Comment on above: Order Comment: Speci men Type: BLOOD SPECIMENOrdering Facility: [facility] Address: [address] [place] [address] Performed By: #### 5 8410-2 ####[facility] LABIA [id number] [place] [address] [place] Platelet mean volume (Bld) [Entitic vol] 9.6 fL Normal 9.0-12.7 [facility] Comment on above: Order Comment: Speci men Type: BLOOD SPECIMENOrdering Facility: [facility] Address: [address] [place] [address] Performed By: #### 5 8410-2 ####[facility] LABCLIA [id number] [place] [id number] [place] Platelets (Bld) [#/Vol] 212 10*3/uL Normal 150-400 [facility] Comment on above: Order Comment: Speci men Type: BLOOD SPECIMENOrdering Facility: [facility] Address: [address] [place] [address] Performed By: #### 5 8410-2 ####[facility] LABCLIA [id number] [address] [address] [place] RBC (Bld) [#/Vol] 2.90 10*6/uL Low 3.90-5.20 [facility] Comment on above: Order Comment: Speci men Type: BLOOD SPECIMENOrdering Facility: [facility] Address: [address] [place] [address] Performed By: #### 5 8410-2 ####[facility] LABCLIA [id number] [place] [id number] [place] WBC (Bld) [#/Vol] 11.25 10*3/uL High 3.70-11.00 [facility] Comment on above: Order Comment: Speci men Type: BLOOD SPECIMENOrdering Facility: [facility] Address: [address] [place] [address] Performed By: #### 5 8410-2 ####[facility] LABCLIA [id number] [place] [id number] [place] CRP SerPl-ncon 12-15-2024 CRP [Mass/Vol] 26.8 mg/dL High <0.9 [facility] Comment on above: Order Comment: Speci men Type: BLOOD SPECIMENOrdering Facility: [facility] Address: [address] [place] [address] Performed By: #### 2 4323-8, 1987-10, , 2776-06 ####[facility] LABCLIA [id number] [place] [id number] [place] Comprehensive metabolic 2000 panelon 12-15-2024 Albumin [Mass/Vol] 2.9 g/dL Low 3.9-4.9 [facility] Comment on above: Order Comment: Speci men Type: BLOOD SPECIMENOrdering Facility: [facility] Address: [address] [place] [address] Performed By: #### 2 4323-8, 1987-10, , 2776-06 ####[facility] LABCLIA [id number] [address] [address] [place] ALP [Catalytic activity/Vol] 95 U/L Normal 34-123 [facility] Comment on above: Order Comment: Speci men Type: BLOOD SPECIMENOrdering Facility: [facility] Address: [address] [place] [address] Performed By: #### 2 4323-8, 1987-10, , 2776-06 ####[facility] LABCLIA [id number] [place] [id number] [place] ALT [Catalytic activity/Vol] 19 U/L Normal 7-38 [facility] Comment on above: Order Comment: Speci men Type: BLOOD SPECIMENOrdering Facility: [facility] Address: [address] [place] [address] Performed By: #### 2 4328, 1987-10, , 2776-06 ####[facility] LABCLIA [id number] [place] [address] [place] Anion gap [Moles/Vol] 11 mmol/L Normal 8-15 [facility] Comment on above: Order Comment: Speci men Type: BLOOD SPECIMENOrdering Facility: [facility] Address: [address] [place] [address] Performed By: #### 2 43238, 1987-10, , 2776-06 ####[facility] LABCLIA [id number] [place] [id number] [place] AST [Catalytic activity/Vol] 11 U/L Low 13-35 [facility] Comment on above: Order Comment: Speci men Type: BLOOD SPECIMENOrdering Facility: [facility] Address: [address] [place] [address] Performed By: #### 2 4323-8, 1987-10, , 2776-06 ####[facility] LABCLIA [id number] [address] [place] [address] [place] Bilirubin [Mass/Vol] 0.5 mg/dL Normal 0.2-1.3 [facility] Comment on above: Order Comment: Speci men Type: BLOOD SPECIMENOrdering Facility: [facility] Address: [address] [place], [place] [address] Performed By: #### 2 4328, 1987-10, , 2776-06 ####[facility] LABCLIA [id number] [facility] [address] [place] [address] [place] Calcium [Mass/Vol] 8.6 mg/dL Normal 8.5-10.2 [facility] Comment on above: Order Comment: Speci men Type: BLOOD SPECIMENOrdering Facility: [facility] Address: [address] [place] [address] Performed By: #### 2 4328, 1987-10, , 2776-06 ####[facility] LABCLIA [id number] [facility] [address] [place] [address] [place] Chloride [Moles/Vol] 100 mmol/L Normal 98-107 [facility] Comment on above: Order Comment: Speci men Type: BLOOD SPECIMENOrdering Facility: [facility] Address: [address] [place], [place] [address] Performed By: #### 2 4328, 1987-10, , 2776-06 ####[facility] LABCLIA [id number] [facility] [address] [place] [address] [place] CO2 [Moles/Vol] 23 mmol/L Normal 22-30 [facility] Comment on above: Order Comment: Speci men Type: BLOOD SPECIMENOrdering Facility: [facility] Address: [address] [place], [place] [address] Performed By: #### 2 4323-8, 1987-10, , 2776-06 ####[facility] LABCLIA [id number] [place] [address] [address] [place] Creatinine [Mass/Vol] 0.75 mg/dL Normal 0.58-0.96 [facility] Comment on above: Order Comment: Dora finch Type: BLOOD SPECIMENOrdering Facility: [facility] Address: [address] [place] [address] Performed By: #### 2 4323-8, 1987-10, , 2776-06 ####[facility] LABIA [id number] [place] [address] [place] Creatinine and Glomerular filtration rate.predicted panel (S/P/Bld) 103 mL/min/1.73m??? Normal >=60 [facility] Comment on above: Order Comment: Dora finch Type: BLOOD SPECIMENOrdering Facility: [facility] Address: [address] [place] [address] Result Comment: Zeny mated Glomerular Filtration Rate [...] By: #### 2 4323-8, 1987-10, , 2776-06 ####[facility] LABIA [id number] [place] [id number] [place] Glucose [Mass/Vol] 103 mg/dL High 74-99 [facility] Comment on above: Order Comment: Dora finch Type: BLOOD SPECIMENOrdering Facility: [facility] Address: [address] [place] [address] Result Comment: The [place] [employer] Association (ADA) provides guidance for cutoff [...] Standards of Medical Care in Diabetes 2016, [place] [employer]. Diabetes Care. 2016.39(Suppl 1). Performed By: #### 2 43238, 1987-10, , 2776-06 ####[facility] LABCLIA [id number] [address] [address] [place] Potassium [Moles/Vol] 3.0 mmol/L Low 3.7-5.1 [facility] Comment on above: Order Comment: Speci men Type: BLOOD SPECIMENOrdering Facility: [facility] Address: [address] [place] [address] Performed By: #### 2 43209-01, 1987-10, , 2776-06 ####[facility] LABIA [id number] [place] [address] [place] Protein [Mass/Vol] 6.0 g/dL Low 6.3-8.0 [facility] Comment on above: Order Comment: Florii men Type: BLOOD SPECIMENOrdering Facility: [facility] Address: [address] [place] [address] Performed By: #### 2 43209-01, 1987-10, , 2776-06 ####[facility] LABIA [id number] [place] [address] [place] Sodium [Moles/Vol] 134 mmol/L Low 136-144 [facility] Comment on above: Order Comment: Speci men Type: BLOOD SPECIMENOrdering Facility: [facility] Address: [address] [place] [address] Performed By: #### 2 43238, 1987-10, , 2776-06 ####[facility] LABIA [id number] [place] [address] [place] Urea nitrogen [Mass/Vol] 11 mg/dL Normal 7-21 [facility] Comment on above: Order Comment: Speci men Type: BLOOD SPECIMENOrdering Facility: [facility] Address: [address] [place], [place] [address] Performed By: #### 2 4323-8, 1987-10, , 2776-06 ####[facility] LABIA [id number] [place] [id number] [place] Magnesium SerPl-mCncon 12-15 Magnesium [Mass/Vol] 1.9 mg/dL Normal 1.7-2.3 [facility] Comment on above: Order Comment: Speci men Type: BLOOD SPECIMENOrdering Facility: [facility] Address: [address] [place] [address] Performed By: #### 2 4323-8, 1987-10, , 2776-06 ####[facility] LABIA [id number] [place] [id number] [place] Phosphate SerPl-mCncon 12-15 Phosphate [Mass/Vol] 2.8 mg/dL Normal 2.7-4.8 [facility] Comment on above: Order Comment: Speci men Type: BLOOD SPECIMENOrdering Facility: [facility] Address: [address] [place] [address] Performed By: #### 2 43238, 1987-10, , 2776-06 ####[facility] LABIA [id number] [address] [address] [place] CASE MANAGEMon 12-14-2024 CASE MANAGEM Normal [facility] CBC W Auto Differential pane l (Bld)on 12-14-2024 Basophils (Bld) [#/Vol] 0.05 10*3/uL Normal <0.11 [facility] Comment on above: Order Comment: Speci men Type: BLOOD SPECIMENOrdering Facility: [facility] Address: [address] [place] [address] Performed By: #### 5 7021-8 ####[facility] LABCLIA [id number] [place] [address] [place] Basophils/100 WBC (Bld) 0.3 % Normal [facility] Comment on above: Order Comment: Speci men Type: BLOOD SPECIMENOrdering Facility: [facility] Address: [address] [place] [address] Performed By: #### 5 7021-8 ####[facility] LABCLIA [id number] [place] [address] [place] Differential cell count method Nom (Bld) Auto Normal [facility] Comment on above: Order Comment: Speci men Type: BLOOD SPECIMENOrdering Facility: [facility] Address: [address] [place] [address] Performed By: #### 5 7021-8 ####[facility] LABCLIA [id number] [place] [address] [place] Eosinophils (Bld) [#/Vol] 0.14 10*3/uL Normal <0.46 [facility] Comment on above: Order Comment: Speci men Type: BLOOD SPECIMENOrdering Facility: [facility] Address: [address] [place] [address] Performed By: #### 5 7021-8 ####[facility] LABCLIA [id number] [place] [address] [place] Eosinophils/100 WBC (Bld) 0.9 % Normal [facility] Comment on above: Order Comment: Speci men Type: BLOOD SPECIMENOrdering Facility: [facility] Address: [address] [place] [address] Performed By: #### 5 7021-8 ####[facility] LABCLIA [id number] [place] [address] [place] Erythrocyte distribution width (RBC) [Ratio] 22.0 % High 11.5-15.0 [facility] Comment on above: Order Comment: Speci men Type: BLOOD SPECIMENOrdering Facility: [facility] Address: [address] [place] [address] Performed By: #### 5 7021-8 ####[facility] LABCLIA [id number] [place] [address] [place] Hematocrit (Bld) [Volume fraction] 28.7 % Low 36.0-46.0 [facility] Comment on above: Order Comment: Speci men Type: BLOOD SPECIMENOrdering Facility: [facility] Address: [address] [place] [address] Performed By: #### 5 7021-8 ####[facility] LABCLIA [id number] [place] [address] [place] Hemoglobin (Bld) [Mass/Vol] 8.6 g/dL Low 11.5-15.5 [facility] Comment on above: Order Comment: Speci men Type: BLOOD SPECIMENOrdering Facility: [facility] Address: [address] [place] [address] Performed By: #### 5 7021-8 ####[facility] LABIA [id number] [place] [address] [place] Immature granulocytes (Bld) [#/Vol] 0.12 10*3/uL High <0.10 [facility] Comment on above: Order Comment: Speci men Type: BLOOD SPECIMENOrdering Facility: [facility] Address: [address] [place] [address] Performed By: #### 5 7021-8 ####[facility] LABIA [id number] [place] [address] [place] Immature granulocytes/100 WBC (Bld) 0.7 % Normal [facility] Comment on above: Order Comment: Speci men Type: BLOOD SPECIMENOrdering Facility: [facility] Address: [address] [place] [address] Performed By: #### 5 7021-8 ####[facility] LABCLIA [id number] [place] [address] [place] Lymphocytes (Bld) [#/Vol] 1.56 10*3/uL Normal 1.00-4.00 [facility] Comment on above: Order Comment: Speci men Type: BLOOD SPECIMENOrdering Facility: [facility] Address: [address] [place] [address] Performed By: #### 5 7021-8 ####[facility] LABCLIA [id number] [place] [address] [place] Lymphocytes/100 WBC (Bld) 9.7 % Normal [facility] Comment on above: Order Comment: Speci men Type: BLOOD SPECIMENOrdering Facility: [facility] Address: [address] [place] [address] Performed By: #### 5 7021-8 ####[facility] LABCLIA [id number] [place] [address] [place] MCH (RBC) [Entitic mass] 26.5 pg Normal 26.0-34.0 [facility] Comment on above: Order Comment: Speci men Type: BLOOD SPECIMENOrdering Facility: [facility] Address: [address] [place] [address] Performed By: #### 5 7021-8 ####[facility] LABCLIA [id number] [place] [address] [place] MCHC (RBC) [Mass/Vol] 30.0 g/dL Low 30.5-36.0 [facility] Comment on above: Order Comment: Speci men Type: BLOOD SPECIMENOrdering Facility: [facility] Address: [address] [place] [address] Performed By: #### 5 7021-8 ####[facility] LABCLIA [id number] [place] [address] [place] MCV (RBC) [Entitic vol] 88.6 fL Normal 80.0-100.0 [facility] Comment on above: Order Comment: Speci men Type: BLOOD SPECIMENOrdering Facility: [facility] Address: [address] [place] [address] Performed By: #### 5 7021-8 ####[facility] LABCLIA [id number] [place] [address] [place] Monocytes (Bld) [#/Vol] 1.48 10*3/uL High <0.87 [facility] Comment on above: Order Comment: Speci men Type: BLOOD SPECIMENOrdering Facility: [facility] Address: [address] [place] [address] Performed By: #### 5 7021-8 ####[facility] LABCLIA [id number] [place] [address] [place] Monocytes/100 WBC (Bld) 9.2 % Normal [facility] Comment on above: Order Comment: Speci men Type: BLOOD SPECIMENOrdering Facility: [facility] Address: [address] [place] [address] Performed By: #### 5 7021-8 ####[facility] LABCLIA [id number] [place] [address] [place] Neutrophils (Bld) [#/Vol] 12.66 10*3/uL High 1.45-7.50 [facility] Comment on above: Order Comment: Speci men Type: BLOOD SPECIMENOrdering Facility: [facility] Address: [address] [place] [address] Performed By: #### 5 7021-8 ####[facility] LABIA [id number] [place] [address] [place] Neutrophils/100 WBC (Bld) 79.2 % Normal [facility] Comment on above: Order Comment: Speci men Type: BLOOD SPECIMENOrdering Facility: [facility] Address: [address] [place] [address] Performed By: #### 5 7021-8 ####[facility] LABCLIA [id number] [place] [address] [place] Nucleated RBC (Bld) [#/Vol] 0.02 10*3/uL High <0.01 [facility] Comment on above: Order Comment: Speci men Type: BLOOD SPECIMENOrdering Facility: [facility] Address: [address] [place] [address] Performed By: #### 5 7021-8 ####[facility] LABCLIA [id number] [place] [address] [place] Nucleated RBC/100 WBC (Bld) [Ratio] 0.1 /100 WBC Normal [facility] Comment on above: Order Comment: Speci men Type: BLOOD SPECIMENOrdering Facility: [facility] Address: [address] [place] [address] Performed By: #### 5 7021-8 ####[facility] LABIA [id number] [place] [address] [place] Platelet mean volume (Bld) [Entitic vol] 9.7 fL Normal 9.0-12.7 [facility] Comment on above: Order Comment: Speci men Type: BLOOD SPECIMENOrdering Facility: [facility] Address: [address] [place] [address] Performed By: #### 5 7021-8 ####[facility] LABCLIA [id number] [place] [address] [place] Platelets (Bld) [#/Vol] 236 10*3/uL Normal 150-400 [facility] Comment on above: Order Comment: Speci men Type: BLOOD SPECIMENOrdering Facility: [facility] Address: [address] [place] [address] Performed By: #### 5 7021-8 ####[facility] LABCLIA [id number] [address] [address] [place] RBC (Bld) [#/Vol] 3.24 10*6/uL Low 3.90-5.20 [facility] Comment on above: Order Comment: Speci men Type: BLOOD SPECIMENOrdering Facility: [facility] Address: [address] [place] [address] Performed By: #### 5 7021-8 ####[facility] LABCLIA [id number] [place] [id number] [place] WBC (Bld) [#/Vol] 16.01 10*3/uL High 3.70-11.00 [facility] Comment on above: Order Comment: Speci men Type: BLOOD SPECIMENOrdering Facility: [facility] Address: [address] [place] [address] Performed By: #### 5 7021-8 ####[facility] LABCLIA [id number] [place] [id number] [place] CONSULT PROGon 12-14-2024 CONSULT PROG Normal [facility] CONSULT PROG Normal [facility] Comprehensive metabolic 2000 panelon 12-14-2024 Albumin [Mass/Vol] 3.3 g/dL Low 3.9-4.9 [facility] Comment on above: Order Comment: Speci men Type: BLOOD SPECIMENOrdering Facility: [facility] Address: [address] [place] [address] Performed By: #### 2 4323-8, 59757-8, 2777- ####[facility] LABCLIA [id number] [place] [id number] [place] ALP [Catalytic activity/Vol] 103 U/L Normal 34-123 [facility] Comment on above: Order Comment: Speci men Type: BLOOD SPECIMENOrdering Facility: [facility] Address: [address] [place] [address] Performed By: #### 2 4323-8, 55030-2, 2777-1 ####[facility] LABCLIA [id number] [facility] [id number] [address] [place] ALT [Catalytic activity/Vol] 25 U/L Normal 7-38 [facility] Comment on above: Order Comment: Speci men Type: BLOOD SPECIMENOrdering Facility: [facility] Address: [address] [place] [address] Performed By: #### 2 4323-8, , 2776-06 ####[facility] LABCLIA [id number] [facility] [address] [place] [address] [place] Anion gap [Moles/Vol] 12 mmol/L Normal 8-15 [facility] Comment on above: Order Comment: Speci men Type: BLOOD SPECIMENOrdering Facility: [facility] Address: [address] [place] [address] Performed By: #### 2 4323-8, , 2776-06 ####[facility] LABCLIA [id number] [address] [place] [address] [place] AST [Catalytic activity/Vol] 19 U/L Normal 13-35 [facility] Comment on above: Order Comment: Speci men Type: BLOOD SPECIMENOrdering Facility: [facility] Address: [address] [place] [address] Performed By: #### 2 4323-8, , 2776-06 ####[facility] LABCLIA [id number] [address] [place] [address] [place] Bilirubin [Mass/Vol] 0.9 mg/dL Normal 0.2-1.3 [facility] Comment on above: Order Comment: Speci men Type: BLOOD SPECIMENOrdering Facility: [facility] Address: [address] [place] [address] Performed By: #### 2 4323-8, , 2776- ####[facility] LABCLIA [id number] [address] [place] [address] [place] Calcium [Mass/Vol] 8.6 mg/dL Normal 8.5-10.2 [facility] Comment on above: Order Comment: Speci men Type: BLOOD SPECIMENOrdering Facility: [facility] Address: [address] [place] [address] Performed By: #### 2 4323-8, 05412-2, 2776-06 ####[facility] LABCLIA [id number] [place] [id number] [place] Chloride [Moles/Vol] 100 mmol/L Normal 98-107 [facility] Comment on above: Order Comment: Speci men Type: BLOOD SPECIMENOrdering Facility: [facility] Address: [address] [place] [address] Performed By: #### 2 4323-8, , 2776-06 ####[facility] LABCLIA [id number] [place] [address] [place] CO2 [Moles/Vol] 21 mmol/L Low 22-30 [facility] Comment on above: Order Comment: Speci men Type: BLOOD SPECIMENOrdering Facility: [facility] Address: [address] [place] [address] Performed By: #### 2 4323-8, , 2776-06 ####[facility] LABCLIA [id number] [place] [id number] [place] Creatinine [Mass/Vol] 0.91 mg/dL Normal 0.58-0.96 [facility] Comment on above: Order Comment: Speci men Type: BLOOD SPECIMENOrdering Facility: [facility] Address: [address] [place] [address] Performed By: #### 2 4323-8, , 2776-06 ####[facility] LABCLIA [id number] [facility] [place] [id number] [place] Creatinine and Glomerular filtration rate.predicted panel (S/P/Bld) 81 mL/min/1.73m??? Normal >=60 [facility] Comment on above: Order Comment: Dora finch Type: BLOOD SPECIMENOrdering Facility: [facility] Address: [address] [place] [address] Result Comment: Zeny mated Glomerular Filtration Rate [...] Performed By: #### 2 4323-8, , 2776-06 ####[facility] LABIA [id number] [address] [address] [place] Glucose [Mass/Vol] 139 mg/dL High 74-99 [facility] Comment on above: Order Comment: Dora finch Type: BLOOD SPECIMENOrdering Facility: [facility] Address: [address] [place] [address] Result Comment: The [place] Diabetes Association (ADA) provides guidance for cutoff [...] Standards of Medical Care in Diabetes 2016, [place] [employer]. Diabetes Care. 2016.39(Suppl 1). Performed By: #### 2 4323-8, 84981-1, 2776- ####[facility] LABIA [id number] [address] [address] [place] Potassium [Moles/Vol] 3.8 mmol/L Normal 3.7-5.1 [facility] Comment on above: Order Comment: Speci men Type: BLOOD SPECIMENOrdering Facility: [facility] Address: [address] [place], [place] [address] Performed By: #### 2 4323-8, , 2776-06 ####[facility] LABCLIA [id number] [address] [place] [address] [place] Protein [Mass/Vol] 6.2 g/dL Low 6.3-8.0 [facility] Comment on above: Order Comment: Speci men Type: BLOOD SPECIMENOrdering Facility: [facility] Address: [address] [place], [place] [address] Performed By: #### 2 4323-8, , 2776-06 ####[facility] LABCLIA [id number] [address] [address] [place] Sodium [Moles/Vol] 133 mmol/L Low 136-144 [facility] Comment on above: Order Comment: Speci men Type: BLOOD SPECIMENOrdering Facility: [facility] Address: [address] [place], [place] [address] Performed By: #### 2 4323-8, , 2776-06 ####[facility] LABCLIA [id number] [address] [address] [place] Urea nitrogen [Mass/Vol] 11 mg/dL Normal 7-21 [facility] Comment on above: Order Comment: Speci men Type: BLOOD SPECIMENOrdering Facility: [facility] Address: [address] [place], [place] [address] Performed By: #### 2 4323-8, , 2776-06 ####[facility] LABCLIA [id number] [address] [address] [place] Magnesium SerPl-mCncon 12-14 Magnesium [Mass/Vol] 1.9 mg/dL Normal 1.7-2.3 [facility] Comment on above: Order Comment: Speci men Type: BLOOD SPECIMENOrdering Facility: [facility] Address: [address] [place] [address] Performed By: #### 2 4323-8, , 2776-06 ####[facility] LABCLIA [id number] [place] [address] [place] Phosphate SerPl-mCncon 12-14 Phosphate [Mass/Vol] 2.3 mg/dL Low 2.7-4.8 [facility] Comment on above: Order Comment: Speci men Type: BLOOD SPECIMENOrdering Facility: [facility] Address: [address] [place] [address] Performed By: #### 2 4323-8, , 2776-06 ####[facility] LABCLIA [id number] [place] [address] [place] XR ABDOMEN 1V SUPINEon 12-14 XR ABDOMEN 1V SUPINE Normal [facility] CBC W Auto Differential pane l (Bld)on 12-13-2024 Basophils (Bld) [#/Vol] 0.04 10*3/uL Normal <0.11 [facility] Comment on above: Order Comment: Speci men Type: BLOOD SPECIMENOrdering Facility: [facility] Address: [address] [place] [address] Performed By: #### 5 7021-8 ####[facility] LABCLIA [id number] [place] [address] [place] Basophils/100 WBC (Bld) 0.3 % Normal [facility] Comment on above: Order Comment: Speci men Type: BLOOD SPECIMENOrdering Facility: [facility] Address: [address] [place] [address] Performed By: #### 5 7021-8 ####[facility] LABCLIA [id number] [place] [address] [place] Differential cell count method Nom (Bld) Auto Normal [facility] Comment on above: Order Comment: Speci men Type: BLOOD SPECIMENOrdering Facility: [facility] Address: [address] [place] [address] Performed By: #### 5 7021-8 ####[facility] LABCLIA [id number] [place] [address] [place] Eosinophils (Bld) [#/Vol] 10*3/uL Normal <0.46 [facility] Comment on above: Order Comment: Speci men Type: BLOOD SPECIMENOrdering Facility: [facility] Address: [address] [place] [address] Performed By: #### 5 7021-8 ####[facility] LABIA [id number] [place] [address] [place] Eosinophils/100 WBC (Bld) 0.1 % Normal [facility] Comment on above: Order Comment: Speci men Type: BLOOD SPECIMENOrdering Facility: [facility] Address: [address] [place] [address] Performed By: #### 5 7021-8 ####[facility] LABIA [id number] [place] [address] [place] Erythrocyte distribution width (RBC) [Ratio] 23.1 % High 11.5-15.0 [facility] Comment on above: Order Comment: Speci men Type: BLOOD SPECIMENOrdering Facility: [facility] Address: [address] [place] [address] Performed By: #### 5 7021-8 ####[facility] LABIA [id number] [place] [id number] [place] Hematocrit (Bld) [Volume fraction] 34.3 % Low 36.0-46.0 [facility] Comment on above: Order Comment: Speci men Type: BLOOD SPECIMENOrdering Facility: [facility] Address: [address] [place] [address] Performed By: #### 5 7021-8 ####[facility] LABCLIA [id number] [place] [address] [place] Hemoglobin (Bld) [Mass/Vol] 10.3 g/dL Low 11.5-15.5 [facility] Comment on above: Order Comment: Speci men Type: BLOOD SPECIMENOrdering Facility: [facility] Address: [address] [place] [address] Performed By: #### 5 7021-8 ####[facility] LABIA [id number] [place] [address] [place] Immature granulocytes (Bld) [#/Vol] 0.12 10*3/uL High <0.10 [facility] Comment on above: Order Comment: Speci men Type: BLOOD SPECIMENOrdering Facility: [facility] Address: [address] [place] [address] Performed By: #### 5 7021-8 ####[facility] LABIA [id number] [place] [address] [place] Immature granulocytes/100 WBC (Bld) 0.8 % Normal [facility] Comment on above: Order Comment: Speci men Type: BLOOD SPECIMENOrdering Facility: [facility] Address: [address] [place] [address] Performed By: #### 5 7021-8 ####[facility] LABIA [id number] [place] [address] [place] Lymphocytes (Bld) [#/Vol] 1.27 10*3/uL Normal 1.00-4.00 [facility] Comment on above: Order Comment: Speci men Type: BLOOD SPECIMENOrdering Facility: [facility] Address: [address] [place] [address] Performed By: #### 5 7021-8 ####[facility] LABIA [id number] [place] [address] [place] Lymphocytes/100 WBC (Bld) 8.0 % Normal [facility] Comment on above: Order Comment: Speci men Type: BLOOD SPECIMENOrdering Facility: [facility] Address: [address] [place] [address] Performed By: #### 5 7021-8 ####[facility] LABIA [id number] [place] [address] [place] MCH (RBC) [Entitic mass] 26.9 pg Normal 26.0-34.0 [facility] Comment on above: Order Comment: Speci men Type: BLOOD SPECIMENOrdering Facility: [facility] Address: [address] [place] [address] Performed By: #### 5 7021-8 ####[facility] LABIA [id number] [place] [address] [place] MCHC (RBC) [Mass/Vol] 30.0 g/dL Low 30.5-36.0 [facility] Comment on above: Order Comment: Speci men Type: BLOOD SPECIMENOrdering Facility: [facility] Address: [address] [place] [address] Performed By: #### 5 7021-8 ####[facility] [id number] [place] [address] [place] MCV (RBC) [Entitic vol] 89.6 fL Normal 80.0-100.0 [facility] Comment on above: Order Comment: Speci men Type: BLOOD SPECIMENOrdering Facility: [facility] Address: [address] [place] [address] Performed By: #### 5 7021-8 ####[facility] LABIA [id number] [place] [address] [place] Monocytes (Bld) [#/Vol] 1.51 10*3/uL High <0.87 [facility] Comment on above: Order Comment: Speci men Type: BLOOD SPECIMENOrdering Facility: [facility] Address: [address] [place] [address] Performed By: #### 5 7021-8 ####[facility] LABCLIA [id number] [place] [address] [place] Monocytes/100 WBC (Bld) 9.5 % Normal [facility] Comment on above: Order Comment: Speci men Type: BLOOD SPECIMENOrdering Facility: [facility] Address: [address] [place] [address] Performed By: #### 5 7021-8 ####[facility] LABCLIA [id number] [place] [address] [place] Neutrophils (Bld) [#/Vol] 12.87 10*3/uL High 1.45-7.50 [facility] Comment on above: Order Comment: Speci men Type: BLOOD SPECIMENOrdering Facility: [facility] Address: [address] [place] [address] Performed By: #### 5 7021-8 ####[facility] LABCLIA [id number] [place] [address] [place] Neutrophils/100 WBC (Bld) 81.3 % Normal [facility] Comment on above: Order Comment: Speci men Type: BLOOD SPECIMENOrdering Facility: [facility] Address: [address] [place] [address] Performed By: #### 5 7021-8 ####[facility] LABCLIA [id number] [place] [address] [place] Nucleated RBC (Bld) [#/Vol] 0.02 10*3/uL High <0.01 [facility] Comment on above: Order Comment: Speci men Type: BLOOD SPECIMENOrdering Facility: [facility] Address: [address] [place] [address] Performed By: #### 5 7021-8 ####[facility] LABCLIA [id number] [place] [address] [place] Nucleated RBC/100 WBC (Bld) [Ratio] 0.1 /100 WBC Normal [facility] Comment on above: Order Comment: Speci men Type: BLOOD SPECIMENOrdering Facility: [facility] Address: [address] [place] [address] Performed By: #### 5 7021-8 ####[facility] LABCLIA [id number] [place] [address] [place] Platelet mean volume (Bld) [Entitic vol] 9.7 fL Normal 9.0-12.7 [facility] Comment on above: Order Comment: Speci men Type: BLOOD SPECIMENOrdering Facility: [facility] Address: [address] [place] [address] Performed By: #### 5 7021-8 ####[facility] LABIA [id number] [place] [address] [place] Platelets (Bld) [#/Vol] 274 10*3/uL Normal 150-400 [facility] Comment on above: Order Comment: Speci men Type: BLOOD SPECIMENOrdering Facility: [facility] Address: [address] [place] [address] Performed By: #### 5 7021-8 ####[facility] LABIA [id number] [place] [address] [place] RBC (Bld) [#/Vol] 3.83 10*6/uL Low 3.90-5.20 [facility] Comment on above: Order Comment: Speci men Type: BLOOD SPECIMENOrdering Facility: [facility] Address: [address] [place] [address] Performed By: #### 5 7021-8 ####[facility] LABIA [id number] [place] [address] [place] WBC (Bld) [#/Vol] 15.82 10*3/uL High 3.70-11.00 [facility] Comment on above: Order Comment: Speci men Type: BLOOD SPECIMENOrdering Facility: [facility] Address: [address] [place] [address] Performed By: #### 5 7021-8 ####[facility] LABCLIA [id number] [address] [address] [place] CNPNon 12-13-2024 CNPN Normal [facility] CONSULTon 12-13-2024 CONSULT Normal [facility] CONSULT PROGon 12-13-2024 CONSULT PROG Normal [facility] CONSULT PROG Normal [facility] CRP SerPl-mCncon 12-13-2024 CRP [Mass/Vol] 14.4 mg/dL High <0.9 [facility] Comment on above: Order Comment: Speci men Type: BLOOD SPECIMENOrdering Facility: [facility] Address: [address] [place] [address] Performed By: #### 1 988-5 ####[facility] LABCLIA [id number] [address], [facility]95 [place] Comprehensive metabolic 2000 panelon 12-13-2024 Albumin [Mass/Vol] 3.8 g/dL Low 3.9-4.9 [facility] Comment on above: Order Comment: Speci men Type: BLOOD SPECIMENOrdering Facility: [facility] Address: [address] [place] [address] Performed By: #### 2 4323-8, , 2776- ####[facility] LABCLIA [id number] [address] [place] [address] [place] ALP [Catalytic activity/Vol] 118 U/L Normal 34-123 [facility] Comment on above: Order Comment: Speci men Type: BLOOD SPECIMENOrdering Facility: [facility] Address: [address] [place] [address] Performed By: #### 2 4323-8, 34737-6, 7- ####[facility] LABCLIA [id number] [address] [place] [address] [place] ALT [Catalytic activity/Vol] 40 U/L High 7-38 [facility] Comment on above: Order Comment: Speci men Type: BLOOD SPECIMENOrdering Facility: [facility] Address: [address] [place], [place] [address] Performed By: #### 2 4323-8, 64518-6, 2776-06 ####[facility] LABCLIA [id number] [facility] [address] [place] [address] [place] Anion gap [Moles/Vol] 14 mmol/L Normal 8-15 [facility] Comment on above: Order Comment: Speci men Type: BLOOD SPECIMENOrdering Facility: [facility] Address: [address] [place] [address] Performed By: #### 2 4323-8, , 2776-06 ####[facility] LABCLIA [id number] [place] [address] [place] AST [Catalytic activity/Vol] 31 U/L Normal 13-35 [facility] Comment on above: Order Comment: Speci men Type: BLOOD SPECIMENOrdering Facility: [facility] Address: [address] [place] [address] Performed By: #### 2 4323-8, , 2776-06 ####[facility] LABCLIA [id number] [facility] [address], [facility]95 [place] Bilirubin [Mass/Vol] 1.1 mg/dL Normal 0.2-1.3 [facility] Comment on above: Order Comment: Speci men Type: BLOOD SPECIMENOrdering Facility: [facility] Address: [address] [place], [place] [address] Performed By: #### 2 4323-8, , 2776-06 ####[facility] LABCLIA [id number] [facility] [address] [place] [address] [place] Calcium [Mass/Vol] 9.0 mg/dL Normal 8.5-10.2 [facility] Comment on above: Order Comment: Speci men Type: BLOOD SPECIMENOrdering Facility: [facility] Address: [address] [place], [place] [address] Performed By: #### 2 4323-8, , 2776-06 ####[facility] LABCLIA [id number] [facility] [id number] [address] [place] Chloride [Moles/Vol] 102 mmol/L Normal 98-107 [facility] Comment on above: Order Comment: Speci men Type: BLOOD SPECIMENOrdering Facility: [facility] Address: [address] [place], [place] [address] Performed By: #### 2 4323-8, , 2776-06 ####[facility] LABCLIA [id number] [address] [address] [place] CO2 [Moles/Vol] 21 mmol/L Low 22-30 [facility] Comment on above: Order Comment: Speci men Type: BLOOD SPECIMENOrdering Facility: [facility] Address: [address] [place], [place] [address] Performed By: #### 2 4323-8, , 2776-06 ####[facility] LABCLIA [id number] [address] [place] [address] [place] Creatinine [Mass/Vol] 0.74 mg/dL Normal 0.58-0.96 [facility] Comment on above: Order Comment: Speci men Type: BLOOD SPECIMENOrdering Facility: [facility] Address: [address] [place] [address] Performed By: #### 2 4323-8, , 2776-06 ####[facility] LABCLIA [id number] [facility] [address] [place] [address] [place] Creatinine and Glomerular filtration rate.predicted panel (S/P/Bld) 104 mL/min/1.73m??? Normal >=60 [facility] Comment on above: Order Comment: Speci men Type: BLOOD SPECIMENOrdering Facility: [facility] Address: [address] [place] [address] Result Comment: Zeny mated Glomerular Filtration Rate [...] actual GFR. Performed By: #### 2 4323-8, 08153-1, 2776-06 ####[facility] LABIA [id number] [place] [id number] [place] Glucose [Mass/Vol] 124 mg/dL High 74-99 [facility] Comment on above: Order Comment: Dora finch Type: BLOOD SPECIMENOrdering Facility: [facility] Address: [address] [place] [address] Result Comment: The [place] Diabetes Association (ADA) provides guidance for cutoff [...] Standards of Medical Care in Diabetes 2016, [place] [employer]. Diabetes Care. 2016.39(Suppl 1). Performed By: #### 2 4323-8, 19883-8, 2776-06 ####[facility] LABIA [id number] [place] [id number] [place] Potassium [Moles/Vol] 4.5 mmol/L Normal 3.7-5.1 [facility] Comment on above: Order Comment: Dora finch Type: BLOOD SPECIMENOrdering Facility: [facility] Address: [address] [place] [address] Performed By: #### 2 4323-8, 51822-0, 2776-06 ####[facility] LABIA [id number] [place] [id number] [place] Protein [Mass/Vol] 6.5 g/dL Normal 6.3-8.0 [facility] Comment on above: Order Comment: Speci men Type: BLOOD SPECIMENOrdering Facility: [facility] Address: [address] [place] [address] Performed By: #### 2 4323-8, 98319-8, 2776-06 ####[facility] LABIA [id number] [place] [id number] [place] Sodium [Moles/Vol] 137 mmol/L Normal 136-144 [facility] Comment on above: Order Comment: Speci men Type: BLOOD SPECIMENOrdering Facility: [facility] Address: [address] [place] [address] Performed By: #### 2 4323-8, 96608-8, 2776-06 ####[facility] LABIA [id number] [place] [id number] [place] Urea nitrogen [Mass/Vol] 11 mg/dL Normal 7-21 [facility] Comment on above: Order Comment: Speci men Type: BLOOD SPECIMENOrdering Facility: [facility] Address: [address] [place] [address] Performed By: #### 2 4323-8, 50143-7, 2776-06 ####[facility] LABIA [id number] [address] [address] [place] Magnesium SerPl-mCncon 12-13 Magnesium [Mass/Vol] 1.6 mg/dL Low 1.7-2.3 [facility] Comment on above: Order Comment: Speci men Type: BLOOD SPECIMENOrdering Facility: [facility] Address: [address] [place], [place] [address] Performed By: #### 2 4323-8, 75044-5, 2777-1 ####[facility] LABCLIA [id number] [place] [id number] [place] Phosphate SerPl-mCncon 12-13 Phosphate [Mass/Vol] 3.8 mg/dL Normal 2.7-4.8 [facility] Comment on above: Order Comment: Speci men Type: BLOOD SPECIMENOrdering Facility: [facility] Address: [address] [place] [address] Performed By: #### 2 4323-8, 01081-6, 2777-1 ####[facility] LABIA [id number] [place] [address] [place] ANES POSTPROC EVALon [address] Normal [facility] ANES PRE-OPon 12-12-2024 ANES PRE-OP Normal [facility] ARTERIAL BLOOD GASESon 12-12 Base deficit (BldA) [Moles/Vol] -6 mmol/L Low -2-0 [facility] Comment on above: Order Comment: Speci men Type: ARTERIAL BLOOD SPECIMENOrdering Facility: [facility] Address: [address] [place] [address] Performed By: #### A LLBG ####[facility] LABIA [id number] [place] [id number] [place] Body temperature 97.34 [degF] Normal [facility] Comment on above: Order Comment: Speci men Type: ARTERIAL BLOOD SPECIMENOrdering Facility: [facility] Address: [address] [place] [address] Performed By: #### A LLBG ####[facility] LABCLIA [id number] [place] [id number] [place] Calcium.ionized (Bld) [Mass/Vol] 1.19 mmol/L Normal 1.08-1.30 [facility] Comment on above: Order Comment: Speci men Type: ARTERIAL BLOOD SPECIMENOrdering Facility: [facility] Address: [address] [place] [address] Performed By: #### A LLBG ####[facility] LABCLIA [id number] [place] [address] [place] Calcium.ionized adjusted to pH 7.4 (BldA) [Moles/Vol] 1.15 mmol/L Normal 1.08-1.30 [facility] Comment on above: Order Comment: Speci men Type: ARTERIAL BLOOD SPECIMENOrdering Facility: [facility] Address: [address] [place] [address] Performed By: #### A LLBG ####[facility] LABCLIA [id number] [place] [address] [place] Carboxyhemoglobin (BldA) [Mass fraction] 1.6 % Normal 0.0-2.0 [facility] Comment on above: Order Comment: Speci men Type: ARTERIAL BLOOD SPECIMENOrdering Facility: [facility] Address: [address] [place] [address] Result Comment: Carb oxyhemoglobin Reference Range for Smokers: 2.0-8.0% Performed By: #### A LLBG ####[facility] LABCLIA [id number] [place] [address] [place] CO2 (Bld) [Partial pressure] 38 mm Hg Normal 36-46 [facility] Comment on above: Order Comment: Speci men Type: ARTERIAL BLOOD SPECIMENOrdering Facility: [facility] Address: [address] [place] [address] Performed By: #### A LLBG ####[facility] LABCLIA [id number] [place] [id number] [place] CO2 adjusted to patient's actual temperature (Bld) [Partial pressure] 36 mmHg Normal 36-46 [facility] Comment on above: Order Comment: Speci men Type: ARTERIAL BLOOD SPECIMENOrdering Facility: [facility] Address: [address] [place] [address] Performed By: #### A LLBG ####[facility] LABCLIA [id number] [place] [address] [place] Glucose [Mass/Vol] 178 mg/dL High 60-105 [facility] Comment on above: Order Comment: Speci men Type: ARTERIAL BLOOD SPECIMENOrdering Facility: [facility] Address: [address] [place] [address] Performed By: #### A LLBG ####[facility] LABCLIA [id number] [place] [address] [place] HCO3 (Bld) [Moles/Vol] 19 mmol/L Low 22-26 [facility] Comment on above: Order Comment: Speci men Type: ARTERIAL BLOOD SPECIMENOrdering Facility: [facility] Address: [address] [place] [address] Performed By: #### A LLBG ####[facility] LABCLIA [id number] [place] [address] [place] Hematocrit (Bld) [Volume fraction] 27.9 % Low 36.0-46.0 [facility] Comment on above: Order Comment: Speci men Type: ARTERIAL BLOOD SPECIMENOrdering Facility: [facility] Address: [address] [place] [address] Performed By: #### A LLBG ####[facility] LABCLIA [id number] [place] [id number] [place] Hemoglobin (Bld) [Mass/Vol] 9.0 g/dL Low 11.5-15.5 [facility] Comment on above: Order Comment: Speci men Type: ARTERIAL BLOOD SPECIMENOrdering Facility: [facility] Address: [address] [place] [address] Performed By: #### A LLBG ####[facility] LABCLIA [id number] [place] [id number] [place] Lactate [Moles/Vol] 5.1 mmol/L High 0.5-2.2 [facility] Comment on above: Order Comment: Speci men Type: ARTERIAL BLOOD SPECIMENOrdering Facility: [facility] Address: [address] [place] [address] Performed By: #### A LLBG ####[facility] LABCLIA [id number] [place] [address] [place] LITERS 2 Liters/min Normal [facility] Comment on above: Order Comment: Speci men Type: ARTERIAL BLOOD SPECIMENOrdering Facility: [facility] Address: [address] [place] [address] Performed By: #### A LLBG ####[facility] LABCLIA [id number] [place] [address] [place] Methemoglobin (Bld) [Mass fraction] 1.0 % Normal 0.0-1.5 [facility] Comment on above: Order Comment: Speci men Type: ARTERIAL BLOOD SPECIMENOrdering Facility: [facility] Address: [address] [place] [address] Performed By: #### A LLBG ####[facility] LABCLIA [id number] [place] [address] [place] O2 THERAPY NC = Nasal Cannula Normal [facility] Comment on above: Order Comment: Speci men Type: ARTERIAL BLOOD SPECIMENOrdering Facility: [facility] Address: [address] [place] [address] Performed By: #### A LLBG ####[facility] LABCLIA [id number] [place] [id number] [place] Oxygen (Bld) [Partial pressure] 110 mm Hg High 85-95 [facility] Comment on above: Order Comment: Speci men Type: ARTERIAL BLOOD SPECIMENOrdering Facility: [facility] Address: [address] [place] [address] Performed By: #### A LLBG ####[facility] LABCLIA [id number] [place] [address] [place] Oxygen adjusted to patient's actual temperature (Bld) [Partial pressure] 106 mmHg High 85-95 [facility] Comment on above: Order Comment: Speci men Type: ARTERIAL BLOOD SPECIMENOrdering Facility: [facility] Address: [address] [place] [address] Performed By: #### A LLBG ####[facility] LABIA [id number] [place] [address] [place] Oxyhemoglobin (BldA) [Mass fraction] 96 % Normal 95-98 [facility] Comment on above: Order Comment: Speci men Type: ARTERIAL BLOOD SPECIMENOrdering Facility: [facility] Address: [address] [place] [address] Performed By: #### A LLBG ####[facility] LABIA [id number] [place] [address] [place] pH (Bld) 7.33 [pH] Low 7.35-7.45 [facility] Comment on above: Order Comment: Speci men Type: ARTERIAL BLOOD SPECIMENOrdering Facility: [facility] Address: [address] [place] [address] Performed By: #### A LLBG ####[facility] LABIA [id number] [place] [address] [place] pH adjusted to patient's actual temperature (Bld) 7.34 Low 7.35-7.45 [facility] Comment on above: Order Comment: Speci men Type: ARTERIAL BLOOD SPECIMENOrdering Facility: [facility] Address: [address] [place] [address] Performed By: #### A LLBG ####[facility] LABIA [id number] [place] [id number] [place] Potassium [Moles/Vol] 4.3 mmol/L Normal 3.5-5.0 [facility] Comment on above: Order Comment: Speci men Type: ARTERIAL BLOOD SPECIMENOrdering Facility: [facility] Address: [facility] [place] [address] Performed By: #### A LLBG ####[facility] LABCLIA [id number] [place] [address] [place] Sodium [Moles/Vol] 139 mmol/L Normal 136-144 [facility] Comment on above: Order Comment: Speci men Type: ARTERIAL BLOOD SPECIMENOrdering Facility: [facility] Address: [address] [place] [address] Performed By: #### A LLBG ####[facility] LABCLIA [id number] [place] [address] [place] Base deficit (BldA) [Moles/Vol] -7 mmol/L Low -2-0 [facility] Comment on above: Order Comment: Speci men Type: ARTERIAL BLOOD SPECIMENOrdering Facility: [facility] Address: [address] [place] [address] Performed By: #### A LLBG ####[facility] LABCLIA [id number] [place] [address] [place] Body temperature 97.52 [degF] Normal [facility] Comment on above: Order Comment: Speci men Type: ARTERIAL BLOOD SPECIMENOrdering Facility: [facility] Address: [address] [place] [address] Performed By: #### A LLBG ####[facility] LABCLIA [id number] [place] [address] [place] Calcium.ionized (Bld) [Mass/Vol] 1.17 mmol/L Normal 1.08-1.30 [facility] Comment on above: Order Comment: Speci men Type: ARTERIAL BLOOD SPECIMENOrdering Facility: [facility] Address: [address] [place] [address] Performed By: #### A LLBG ####[facility] LABCLIA [id number] [place] [address] [place] Calcium.ionized adjusted to pH 7.4 (BldA) [Moles/Vol] 1.13 mmol/L Normal 1.08-1.30 [facility] Comment on above: Order Comment: Speci men Type: ARTERIAL BLOOD SPECIMENOrdering Facility: [facility] Address: [address] [place] [address] Performed By: #### A LLBG ####[facility] LABCLIA [id number] [place] [address] [place] Carboxyhemoglobin (BldA) [Mass fraction] 1.6 % Normal 0.0-2.0 [facility] Comment on above: Order Comment: Speci men Type: ARTERIAL BLOOD SPECIMENOrdering Facility: [facility] Address: [address] [place] [address] Result Comment: Carb oxyhemoglobin Reference Range for Smokers: 2.0-8.0% Performed By: #### A LLBG ####[facility] LABCLIA [id number] [place] [address] [place] CO2 (Bld) [Partial pressure] 33 mm Hg Low 36-46 [facility] Comment on above: Order Comment: Speci men Type: ARTERIAL BLOOD SPECIMENOrdering Facility: [facility] Address: [address] [place] [address] Performed By: #### A LLBG ####[facility] LABCLIA [id number] [place] [id number] [place] CO2 adjusted to patient's actual temperature (Bld) [Partial pressure] 32 mmHg Low 36-46 [facility] Comment on above: Order Comment: Speci men Type: ARTERIAL BLOOD SPECIMENOrdering Facility: [facility] Address: [address] [place] [address] Performed By: #### A LLBG ####[facility] LABCLIA [id number] [address] [place] [address] [place] Glucose [Mass/Vol] 206 mg/dL High 60-105 [facility] Comment on above: Order Comment: Speci men Type: ARTERIAL BLOOD SPECIMENOrdering Facility: [facility] Address: [address] [place] [address] Performed By: #### A LLBG ####[facility] LABCLIA [id number] [place] [address] [place] HCO3 (Bld) [Moles/Vol] 17 mmol/L Low 22-26 [facility] Comment on above: Order Comment: Speci men Type: ARTERIAL BLOOD SPECIMENOrdering Facility: [facility] Address: [address] [place] [address] Performed By: #### A LLBG ####[facility] LABCLIA [id number] [place] [address] [place] Hematocrit (Bld) [Volume fraction] 27.6 % Low 36.0-46.0 [facility] Comment on above: Order Comment: Speci men Type: ARTERIAL BLOOD SPECIMENOrdering Facility: [facility] Address: [address] [place] [address] Performed By: #### A LLBG ####[facility] LABCLIA [id number] [place] [id number] [place] Hemoglobin (Bld) [Mass/Vol] 8.9 g/dL Low 11.5-15.5 [facility] Comment on above: Order Comment: Speci men Type: ARTERIAL BLOOD SPECIMENOrdering Facility: [facility] Address: [address] [place] [address] Performed By: #### A LLBG ####[facility] LABCLIA [id number] [place] [id number] [place] Lactate [Moles/Vol] 5.8 mmol/L High 0.5-2.2 [facility] Comment on above: Order Comment: Speci men Type: ARTERIAL BLOOD SPECIMENOrdering Facility: [facility] Address: [address] [place] [id number] Performed By: #### A LLBG ####[facility] LABCLIA [id number] [address] [address] [place] LITERS 2 Liters/min Normal [facility] Comment on above: Order Comment: Speci men Type: ARTERIAL BLOOD SPECIMENOrdering Facility: [facility] Address: [address] [place] [address] Performed By: #### A LLBG ####[facility] LABCLIA [id number] [place] [id number] [place] Methemoglobin (Bld) [Mass fraction] 0.7 % Normal 0.0-1.5 [facility] Comment on above: Order Comment: Speci men Type: ARTERIAL BLOOD SPECIMENOrdering Facility: [facility] Address: [address] [place] [address] Performed By: #### A LLBG ####[facility] LABCLIA [id number] [place] [id number] [place] O2 THERAPY NC = Nasal Cannula Normal [facility] Comment on above: Order Comment: Speci men Type: ARTERIAL BLOOD SPECIMENOrdering Facility: [facility] Address: [address] [place], [place] [address] Performed By: #### A LLBG ####[facility] LABCLIA [id number] [place] [id number] [place] Oxygen (Bld) [Partial pressure] 127 mm Hg High 85-95 [facility] Comment on above: Order Comment: Speci men Type: ARTERIAL BLOOD SPECIMENOrdering Facility: [facility] Address: [address] [place] [address] Performed By: #### A LLBG ####[facility] LABCLIA [id number] [address] [address] [place] Oxygen adjusted to patient's actual temperature (Bld) [Partial pressure] 124 mmHg High 85-95 [facility] Comment on above: Order Comment: Speci men Type: ARTERIAL BLOOD SPECIMENOrdering Facility: [facility] [facility] Address: [address] [place] [address] Performed By: #### A LLBG ####[facility] LABCLIA [id number] [address] [address] [place] Oxyhemoglobin (BldA) [Mass fraction] 97 % Normal 95-98 [facility] Comment on above: Order Comment: Speci men Type: ARTERIAL BLOOD SPECIMENOrdering Facility: [facility] Address: [address] [place] [address] Performed By: #### A LLBG ####[facility] LABCLIA [id number] [address] [address] [place] pH (Bld) 7.33 [pH] Low 7.35-7.45 [facility] Comment on above: Order Comment: Speci men Type: ARTERIAL BLOOD SPECIMENOrdering Facility: [facility] Address: [address] [place] [address] Performed By: #### A LLBG ####[facility] LABCLIA [id number] [place] [id number] [place] pH adjusted to patient's actual temperature (Bld) 7.34 Low 7.35-7.45 [facility] Comment on above: Order Comment: Speci men Type: ARTERIAL BLOOD SPECIMENOrdering Facility: [facility] Address: [address] [place] [address] Performed By: #### A LLBG ####[facility] LABIA [id number] [place] [id number] [place] Potassium [Moles/Vol] 4.1 mmol/L Normal 3.5-5.0 [facility] Comment on above: Order Comment: Speci men Type: ARTERIAL BLOOD SPECIMENOrdering Facility: [facility] Address: [address] [place] [address] Performed By: #### A LLBG ####[facility] LABCLIA [id number] [place] [address] [place] Sodium [Moles/Vol] 140 mmol/L Normal 136-144 [facility] Comment on above: Order Comment: Speci men Type: ARTERIAL BLOOD SPECIMENOrdering Facility: [facility] Address: [address] [place] [address] Performed By: #### A LLBG ####[facility] LABCLIA [id number] [place] [address] [place] ARTERIAL BLOOD GASES WITH IO NIZED MAGNESIUMon 12-12-2024 Base deficit (BldA) [Moles/Vol] -4 mmol/L Low -2-0 [facility] Comment on above: Order Comment: Speci men Type: ARTERIAL BLOOD SPECIMENOrdering Facility: [facility] Address: [address] [place] [address] Performed By: #### A LLMG ####[facility] LABCLIA [id number] [place] [address] [place] Calcium.ionized (Bld) [Mass/Vol] 1.14 mmol/L Normal 1.08-1.30 [facility] Comment on above: Order Comment: Speci men Type: ARTERIAL BLOOD SPECIMENOrdering Facility: [facility] Address: [address] [place] [address] Performed By: #### A LLMG ####[facility] LABCLIA [id number] [place] [address] [place] Calcium.ionized adjusted to pH 7.4 (BldA) [Moles/Vol] 1.12 mmol/L Normal 1.08-1.30 [facility] Comment on above: Order Comment: Speci men Type: ARTERIAL BLOOD SPECIMENOrdering Facility: [facility] Address: [address] [place] [address] Performed By: #### A LLMG ####[facility] LABCLIA [id number] [place] [address] [place] Carboxyhemoglobin (BldA) [Mass fraction] 2.0 % Normal 0.0-2.0 [facility] Comment on above: Order Comment: Speci men Type: ARTERIAL BLOOD SPECIMENOrdering Facility: [facility] Address: [address] [place] [address] Result Comment: Carb oxyhemoglobin Reference Range for Smokers: 2.0-8.0% Performed By: #### A LLMG ####[facility] LABIA [id number] [place] [address] [place] CO2 (Bld) [Partial pressure] 37 mm Hg Normal 36-46 [facility] Comment on above: Order Comment: Speci men Type: ARTERIAL BLOOD SPECIMENOrdering Facility: [facility] Address: [address] [place] [address] Performed By: #### A LLMG ####[facility] LABIA [id number] [place] [address] [place] CO2 adjusted to patient's actual temperature (Bld) [Partial pressure] 37 mmHg Normal 36-46 [facility] Comment on above: Order Comment: Speci men Type: ARTERIAL BLOOD SPECIMENOrdering Facility: [facility] Address: [address] [place] [address] Performed By: #### A LLMG ####[facility] LABIA [id number] [place] [address] [place] Glucose [Mass/Vol] 148 mg/dL High 60-105 [facility] Comment on above: Order Comment: Speci men Type: ARTERIAL BLOOD SPECIMENOrdering Facility: [facility] Address: [address] [place] [address] Performed By: #### A LLMG ####[facility] LABIA [id number] [place] [address] [place] HCO3 (Bld) [Moles/Vol] 20 mmol/L Low 22-26 [facility] Comment on above: Order Comment: Speci men Type: ARTERIAL BLOOD SPECIMENOrdering Facility: [facility] Address: [address] [place] [address] Performed By: #### A LLMG ####[facility] LABIA [id number] [place] [address] [place] Hematocrit (Bld) [Volume fraction] 24.9 % Low 36.0-46.0 [facility] Comment on above: Order Comment: Speci men Type: ARTERIAL BLOOD SPECIMENOrdering Facility: [facility] Address: [address] [place] [address] Performed By: #### A LLMG ####[facility] LABIA [id number] [place] [address] [place] Hemoglobin (Bld) [Mass/Vol] 8.0 g/dL Low 11.5-15.5 [facility] Comment on above: Order Comment: Speci men Type: ARTERIAL BLOOD SPECIMENOrdering Facility: [facility] Address: [address] [place] [address] Performed By: #### A LLMG ####[facility] LABIA [id number] [place] [address] [place] Lactate [Moles/Vol] 3.0 mmol/L High 0.5-2.2 [facility] Comment on above: Order Comment: Speci men Type: ARTERIAL BLOOD SPECIMENOrdering Facility: [facility] Address: [address] [place] [address] Performed By: #### A LLMG ####[facility] LABIA [id number] [place] [address] [place] Magnesium [Moles/Vol] 0.55 mmol/L Normal 0.45-0.60 [facility] Comment on above: Order Comment: Speci men Type: ARTERIAL BLOOD SPECIMENOrdering Facility: [facility] Address: [address] [place] [address] Performed By: #### A LLMG ####[facility] LABCLIA [id number] [place] [address] [place] Methemoglobin (Bld) [Mass fraction] 1.2 % Normal 0.0-1.5 [facility] Comment on above: Order Comment: Speci men Type: ARTERIAL BLOOD SPECIMENOrdering Facility: [facility] Address: [address] [place] [address] Performed By: #### A LLMG ####[facility] LABCLIA [id number] [place] [id number] [place] Oxygen (Bld) [Partial pressure] 144 mm Hg High 85-95 [facility] Comment on above: Order Comment: Speci men Type: ARTERIAL BLOOD SPECIMENOrdering Facility: [facility] Address: [address] [place] [address] Performed By: #### A LLMG ####[facility] LABCLIA [id number] [place] [address] [place] Oxygen adjusted to patient's actual temperature (Bld) [Partial pressure] 144 mmHg High 85-95 [facility] Comment on above: Order Comment: Speci men Type: ARTERIAL BLOOD SPECIMENOrdering Facility: [facility] Address: [address] [place] [address] Performed By: #### A LLMG ####[facility] LABCLIA [id number] [place] [id number] [place] Oxyhemoglobin (BldA) [Mass fraction] 96 % Normal 95-98 [facility] Comment on above: Order Comment: Speci men Type: ARTERIAL BLOOD SPECIMENOrdering Facility: [facility] Address: [address] [place] [address] Performed By: #### A LLMG ####[facility] LABCLIA [id number] [place] [id number] [place] pH (Bld) 7.36 [pH] Normal 7.35-7.45 [facility] Comment on above: Order Comment: Speci men Type: ARTERIAL BLOOD SPECIMENOrdering Facility: [facility] Address: [address] [place] [address] Performed By: #### A LLMG ####[facility] LABCLIA [id number] [address] [place] [address] [place] pH adjusted to patient's actual temperature (Bld) 7.36 Normal 7.35-7.45 [facility] Comment on above: Order Comment: Speci men Type: ARTERIAL BLOOD SPECIMENOrdering Facility: [facility] Address: [address] [place] [address] Performed By: #### A LLMG ####[facility] LABIA [id number] [place] [id number] [place] Potassium [Moles/Vol] 4.3 mmol/L Normal 3.5-5.0 [facility] Comment on above: Order Comment: Speci men Type: ARTERIAL BLOOD SPECIMENOrdering Facility: [facility] Address: [address] [place] [address] Performed By: #### A LLMG ####[facility] LABIA [id number] [place] [id number] [place] Sodium [Moles/Vol] 140 mmol/L Normal 136-144 [facility] Comment on above: Order Comment: Speci men Type: ARTERIAL BLOOD SPECIMENOrdering Facility: [facility] Address: [address] [place] [address] Performed By: #### A LLMG ####[facility] LABIA [id number] [place] [id number] [place] Base deficit (BldA) [Moles/Vol] -4 mmol/L Low -2-0 [facility] Comment on above: Order Comment: Speci men Type: ARTERIAL BLOOD SPECIMENOrdering Facility: [facility] Address: [address] [place] [address] Performed By: #### A LLMG ####[facility] LABIA [id number] [place] [address] [place] Calcium.ionized (Bld) [Mass/Vol] 1.12 mmol/L Normal 1.08-1.30 [facility] Comment on above: Order Comment: Speci men Type: ARTERIAL BLOOD SPECIMENOrdering Facility: [facility] Address: [address] [place] [address] Performed By: #### A LLMG ####[facility] [id number] [place] [address] [place] Calcium.ionized adjusted to pH 7.4 (BldA) [Moles/Vol] 1.10 mmol/L Normal 1.08-1.30 [facility] Comment on above: Order Comment: Speci men Type: ARTERIAL BLOOD SPECIMENOrdering Facility: [facility] Address: [address] [place] [address] Performed By: #### A LLMG ####[facility] [id number] [place] [address] [place] Carboxyhemoglobin (BldA) [Mass fraction] 2.0 % Normal 0.0-2.0 [facility] Comment on above: Order Comment: Speci men Type: ARTERIAL BLOOD SPECIMENOrdering Facility: [facility] Address: [address] [place] [address] Result Comment: Carb oxyhemoglobin Reference Range for Smokers: 2.0-8.0% Performed By: #### A LLMG ####[facility] [id number] [place] [address] [place] CO2 (Bld) [Partial pressure] 37 mm Hg Normal 36-46 [facility] Comment on above: Order Comment: Speci men Type: ARTERIAL BLOOD SPECIMENOrdering Facility: [facility] Address: [address] [place] [address] Performed By: #### A LLMG ####[facility] LABCLIA [id number] [place] [id number] [place] CO2 adjusted to patient's actual temperature (Bld) [Partial pressure] 37 mmHg Normal 36-46 [facility] Comment on above: Order Comment: Speci men Type: ARTERIAL BLOOD SPECIMENOrdering Facility: [facility] Address: [address] [place] [address] Performed By: #### A LLMG ####[facility] LABCLIA [id number] [place] [address] [place] Glucose [Mass/Vol] 145 mg/dL High 60-105 [facility] Comment on above: Order Comment: Speci men Type: ARTERIAL BLOOD SPECIMENOrdering Facility: [facility] Address: [address] [place] [address] Performed By: #### A LLMG ####[facility] LABCLIA [id number] [place] [address] [place] HCO3 (Bld) [Moles/Vol] 21 mmol/L Low 22-26 [facility] Comment on above: Order Comment: Speci men Type: ARTERIAL BLOOD SPECIMENOrdering Facility: [facility] Address: [address] [place] [address] Performed By: #### A LLMG ####[facility] LABCLIA [id number] [place] [id number] [place] Hematocrit (Bld) [Volume fraction] 24.5 % Low 36.0-46.0 [facility] Comment on above: Order Comment: Speci men Type: ARTERIAL BLOOD SPECIMENOrdering Facility: [facility] Address: [address] [place] [address] Performed By: #### A LLMG ####[facility] LABCLIA [id number] [address], [facility]95 [place] Hemoglobin (Bld) [Mass/Vol] 7.9 g/dL Low 11.5-15.5 [facility] Comment on above: Order Comment: Speci men Type: ARTERIAL BLOOD SPECIMENOrdering Facility: [facility] Address: [address] [place] [address] Performed By: #### A LLMG ####[facility] LABCLIA [id number] [place] [id number] [place] Lactate [Moles/Vol] 3.0 mmol/L High 0.5-2.2 [facility] Comment on above: Order Comment: Speci men Type: ARTERIAL BLOOD SPECIMENOrdering Facility: [facility] Address: [address] [place] [address] Performed By: #### A LLMG ####[facility] LABIA [id number] [place] [address] [place] Magnesium [Moles/Vol] 0.55 mmol/L Normal 0.45-0.60 [facility] Comment on above: Order Comment: Speci men Type: ARTERIAL BLOOD SPECIMENOrdering Facility: [facility] Address: [address] [place] [address] Performed By: #### A LLMG ####[facility] LABIA [id number] [place] [address] [place] Methemoglobin (Bld) [Mass fraction] 0.7 % Normal 0.0-1.5 [facility] Comment on above: Order Comment: Speci men Type: ARTERIAL BLOOD SPECIMENOrdering Facility: [facility] Address: [address] [place] [address] Performed By: #### A LLMG ####[facility] LABIA [id number] [place] [id number] [place] Oxygen (Bld) [Partial pressure] 183 mm Hg High 85-95 [facility] Comment on above: Order Comment: Speci men Type: ARTERIAL BLOOD SPECIMENOrdering Facility: [facility] Address: [address] [place], [place] [address] Performed By: #### A LLMG ####[facility] LABCLIA [id number] [address] [address] [place] Oxygen adjusted to patient's actual temperature (Bld) [Partial pressure] 183 mmHg High 85-95 [facility] Comment on above: Order Comment: Speci men Type: ARTERIAL BLOOD SPECIMENOrdering Facility: [facility] Address: [address] [place] [address] Performed By: #### A LLMG ####[facility] LABCLIA [id number] [place] [id number] [place] Oxyhemoglobin (BldA) [Mass fraction] 97 % Normal 95-98 [facility] Comment on above: Order Comment: Speci men Type: ARTERIAL BLOOD SPECIMENOrdering Facility: [facility] Address: [address] [place] [address] Performed By: #### A LLMG ####[facility] LABIA [id number] [place] [address] [place] pH (Bld) 7.36 [pH] Normal 7.35-7.45 [facility] Comment on above: Order Comment: Speci men Type: ARTERIAL BLOOD SPECIMENOrdering Facility: [facility] Address: [address] [place] [address] Performed By: #### A LLMG ####[facility] LABCLIA [id number] [place] [address] [place] pH adjusted to patient's actual temperature (Bld) 7.36 Normal 7.35-7.45 [facility] Comment on above: Order Comment: Speci men Type: ARTERIAL BLOOD SPECIMENOrdering Facility: [facility] Address: [address] [place] [address] Performed By: #### A LLMG ####[facility] LABCLIA [id number] [place] [id number] [place] Potassium [Moles/Vol] 4.3 mmol/L Normal 3.5-5.0 [facility] Comment on above: Order Comment: Speci men Type: ARTERIAL BLOOD SPECIMENOrdering Facility: [facility] Address: [address] [place] [address] Performed By: #### A LLMG ####[facility] LABIA [id number] [place] [address] [place] Sodium [Moles/Vol] 139 mmol/L Normal 136-144 [facility] Comment on above: Order Comment: Speci men Type: ARTERIAL BLOOD SPECIMENOrdering Facility: [facility] Address: [address] [place] [address] Performed By: #### A LLMG ####[facility] LABIA [id number] [place] [address] [place] Base deficit (BldA) [Moles/Vol] -5 mmol/L Low -2-0 [facility] Comment on above: Order Comment: Speci men Type: ARTERIAL BLOOD SPECIMENOrdering Facility: [facility] Address: [address] [place] [address] Performed By: #### A LLMG ####[facility] LABIA [id number] [place] [address] [place] Calcium.ionized (Bld) [Mass/Vol] 1.20 mmol/L Normal 1.08-1.30 [facility] Comment on above: Order Comment: Speci men Type: ARTERIAL BLOOD SPECIMENOrdering Facility: [facility] Address: [address] [place] [address] Performed By: #### A LLMG ####[facility] LABIA [id number] [place] [address] [place] Calcium.ionized adjusted to pH 7.4 (BldA) [Moles/Vol] 1.17 mmol/L Normal 1.08-1.30 [facility] Comment on above: Order Comment: Speci men Type: ARTERIAL BLOOD SPECIMENOrdering Facility: [facility] Address: [address] [place] [address] Performed By: #### A LLMG ####[facility] LABCLIA [id number] [place] [address] [place] Carboxyhemoglobin (BldA) [Mass fraction] 2.1 % High 0.0-2.0 [facility] Comment on above: Order Comment: Speci men Type: ARTERIAL BLOOD SPECIMENOrdering Facility: [facility] Address: [address] [place] [address] Result Comment: Carb oxyhemoglobin Reference Range for Smokers: 2.0-8.0% Performed By: #### A LLMG ####[facility] LABCLIA [id number] [place] [address] [place] CO2 (Bld) [Partial pressure] 37 mm Hg Normal 36-46 [facility] Comment on above: Order Comment: Speci men Type: ARTERIAL BLOOD SPECIMENOrdering Facility: [facility] Address: [address] [place] [address] Performed By: #### A LLMG ####[facility] LABCLIA [id number] [address] [place] CO2 adjusted to patient's actual temperature (Bld) [Partial pressure] 37 mmHg Normal 36-46 [facility] Comment on above: Order Comment: Speci men Type: ARTERIAL BLOOD SPECIMENOrdering Facility: [facility] Address: [address] [place] [address] Performed By: #### A LLMG ####[facility] LABCLIA [id number] [place] [id number] [place] Glucose [Mass/Vol] 149 mg/dL High 60-105 [facility] Comment on above: Order Comment: Speci men Type: ARTERIAL BLOOD SPECIMENOrdering Facility: [facility] Address: [address] [place] [address] Performed By: #### A LLMG ####[facility] LABCLIA [id number] [place] [id number] [place] HCO3 (Bld) [Moles/Vol] 19 mmol/L Low 22-26 [facility] Comment on above: Order Comment: Speci men Type: ARTERIAL BLOOD SPECIMENOrdering Facility: [facility] Address: [address] [place] [address] Performed By: #### A LLMG ####[facility] LABCLIA [id number] [place] [address] [place] Hematocrit (Bld) [Volume fraction] 27.8 % Low 36.0-46.0 [facility] Comment on above: Order Comment: Speci men Type: ARTERIAL BLOOD SPECIMENOrdering Facility: [facility] Address: [address] [place] [address] Performed By: #### A LLMG ####[facility] LABIA [id number] [place] [address] [place] Hemoglobin (Bld) [Mass/Vol] 9.0 g/dL Low 11.5-15.5 [facility] Comment on above: Order Comment: Speci men Type: ARTERIAL BLOOD SPECIMENOrdering Facility: [facility] Address: [address] [place] [address] Performed By: #### A LLMG ####[facility] LABCLIA [id number] [place] [address] [place] Lactate [Moles/Vol] 3.3 mmol/L High 0.5-2.2 [facility] Comment on above: Order Comment: Speci men Type: ARTERIAL BLOOD SPECIMENOrdering Facility: [facility] Address: [address] [place] [address] Performed By: #### A LLMG ####[facility] LABCLIA [id number] [place] [address] [place] Magnesium [Moles/Vol] 0.63 mmol/L High 0.45-0.60 [facility] Comment on above: Order Comment: Speci men Type: ARTERIAL BLOOD SPECIMENOrdering Facility: [facility] Address: [address] [place], [place] [id number] Performed By: #### A LLMG ####[facility] LABCLIA [id number] [place] [id number] [place] Methemoglobin (Bld) [Mass fraction] 0.4 % Normal 0.0-1.5 [facility] Comment on above: Order Comment: Speci men Type: ARTERIAL BLOOD SPECIMENOrdering Facility: [facility] Address: [address] [place], [place] [id number] Performed By: #### A LLMG ####[facility] LABCLIA [id number] [place] [id number] [place] Oxygen (Bld) [Partial pressure] 185 mm Hg High 85-95 [facility] Comment on above: Order Comment: Speci men Type: ARTERIAL BLOOD SPECIMENOrdering Facility: [facility] Address: [address] [place] [address] Performed By: #### A LLMG ####[facility] LABCLIA [id number] [place] [id number] [place] Oxygen adjusted to patient's actual temperature (Bld) [Partial pressure] 185 mmHg High 85-95 [facility] Comment on above: Order Comment: Speci men Type: ARTERIAL BLOOD SPECIMENOrdering Facility: [facility] Address: [address] [place], [place] [address] Performed By: #### A LLMG ####[facility] LABCLIA [id number] [address] [place] [address] [place] Oxyhemoglobin (BldA) [Mass fraction] 97 % Normal 95-98 [facility] Comment on above: Order Comment: Speci men Type: ARTERIAL BLOOD SPECIMENOrdering Facility: [facility] Address: [address] [place], [place] [address] Performed By: #### A LLMG ####[facility] LABCLIA [id number] [place] [address] [place] pH (Bld) 7.35 [pH] Normal 7.35-7.45 [facility] Comment on above: Order Comment: Speci men Type: ARTERIAL BLOOD SPECIMENOrdering Facility: [facility] Address: [address] [place] [address] Performed By: #### A LLMG ####[facility] LABCLIA [id number] [place] [address] [place] pH adjusted to patient's actual temperature (Bld) 7.35 Normal 7.35-7.45 [facility] Comment on above: Order Comment: Speci men Type: ARTERIAL BLOOD SPECIMENOrdering Facility: [facility] Address: [address] [place] [address] Performed By: #### A LLMG ####[facility] LABCLIA [id number] [place] [address] [place] Potassium [Moles/Vol] 4.7 mmol/L Normal 3.5-5.0 [facility] Comment on above: Order Comment: Speci men Type: ARTERIAL BLOOD SPECIMENOrdering Facility: [facility] Address: [address] [place] [address] Performed By: #### A LLMG ####[facility] LABCLIA [id number] [place] [address] [place] Sodium [Moles/Vol] 138 mmol/L Normal 136-144 [facility] Comment on above: Order Comment: Speci men Type: ARTERIAL BLOOD SPECIMENOrdering Facility: [facility] Address: [address] [place] [address] Performed By: #### A LLMG ####[facility] LABCLIA [id number] [place] [id number] [place] Base deficit (BldA) [Moles/Vol] -4 mmol/L Low -2-0 [facility] Comment on above: Order Comment: Speci men Type: ARTERIAL BLOOD SPECIMENOrdering Facility: [facility] Address: [address] [place] [address] Performed By: #### A LLMG ####[facility] [id number] [place] [address] [place] Calcium.ionized (Bld) [Mass/Vol] 1.23 mmol/L Normal 1.08-1.30 [facility] Comment on above: Order Comment: Speci men Type: ARTERIAL BLOOD SPECIMENOrdering Facility: [facility] Address: [address] [place] [address] Performed By: #### A LLMG ####[facility] [id number] [place] [address] [place] Calcium.ionized adjusted to pH 7.4 (BldA) [Moles/Vol] 1.20 mmol/L Normal 1.08-1.30 [facility] Comment on above: Order Comment: Speci men Type: ARTERIAL BLOOD SPECIMENOrdering Facility: [facility] Address: [address] [place] [address] Performed By: #### A LLMG ####[facility] [id number] [place] [address] [place] Carboxyhemoglobin (BldA) [Mass fraction] 2.1 % High 0.0-2.0 [facility] Comment on above: Order Comment: Speci men Type: ARTERIAL BLOOD SPECIMENOrdering Facility: [facility] Address: [address] [place] [address] Result Comment: Carb oxyhemoglobin Reference Range for Smokers: 2.0-8.0% Performed By: #### A LLMG ####[facility] [id number] [place] [address] [place] CO2 (Bld) [Partial pressure] 37 mm Hg Normal 36-46 [facility] Comment on above: Order Comment: Speci men Type: ARTERIAL BLOOD SPECIMENOrdering Facility: [facility] Address: [address] [place] [address] Performed By: #### A LLMG ####[facility] LABCLIA [id number] [place] [address] [place] CO2 adjusted to patient's actual temperature (Bld) [Partial pressure] 37 mmHg Normal 36-46 [facility] Comment on above: Order Comment: Speci men Type: ARTERIAL BLOOD SPECIMENOrdering Facility: [facility] Address: [address] [place] [address] Performed By: #### A LLMG ####[facility] LABCLIA [id number] [place] [address] [place] Glucose [Mass/Vol] 154 mg/dL High 60-105 [facility] Comment on above: Order Comment: Speci men Type: ARTERIAL BLOOD SPECIMENOrdering Facility: [facility] Address: [address] [place] [address] Performed By: #### A LLMG ####[facility] LABCLIA [id number] [place] [address] [place] HCO3 (Bld) [Moles/Vol] 20 mmol/L Low 22-26 [facility] Comment on above: Order Comment: Speci men Type: ARTERIAL BLOOD SPECIMENOrdering Facility: [facility] Address: [address] [place] [address] Performed By: #### A LLMG ####[facility] LABCLIA [id number] [place] [address] [place] Hematocrit (Bld) [Volume fraction] 29.2 % Low 36.0-46.0 [facility] Comment on above: Order Comment: Speci men Type: ARTERIAL BLOOD SPECIMENOrdering Facility: [facility] Address: [address] [place] [address] Performed By: #### A LLMG ####[facility] LABCLIA [id number] [place] [address] [place] Hemoglobin (Bld) [Mass/Vol] 9.4 g/dL Low 11.5-15.5 [facility] Comment on above: Order Comment: Speci men Type: ARTERIAL BLOOD SPECIMENOrdering Facility: [facility] Address: [address] [place] [address] Performed By: #### A LLMG ####[facility] LABCLIA [id number] [place] [address] [place] Lactate [Moles/Vol] 2.2 mmol/L Normal 0.5-2.2 [facility] Comment on above: Order Comment: Speci men Type: ARTERIAL BLOOD SPECIMENOrdering Facility: [facility] Address: [address] [place] [address] Performed By: #### A LLMG ####[facility] LABIA [id number] [place] [address] [place] Magnesium [Moles/Vol] 0.67 mmol/L High 0.45-0.60 [facility] Comment on above: Order Comment: Speci men Type: ARTERIAL BLOOD SPECIMENOrdering Facility: [facility] Address: [address] [place] [address] Performed By: #### A LLMG ####[facility] LABIA [id number] [place] [address] [place] Methemoglobin (Bld) [Mass fraction] 0.4 % Normal 0.0-1.5 [facility] Comment on above: Order Comment: Speci men Type: ARTERIAL BLOOD SPECIMENOrdering Facility: [facility] Address: [address] [place] [address] Performed By: #### A LLMG ####[facility] LABIA [id number] [place] [id number] [place] Oxygen (Bld) [Partial pressure] 209 mm Hg High 85-95 [facility] Comment on above: Order Comment: Speci men Type: ARTERIAL BLOOD SPECIMENOrdering Facility: [facility] Address: [address] [place] [address] Performed By: #### A LLMG ####[facility] LABCLIA [id number] [place] [address] [place] Oxygen adjusted to patient's actual temperature (Bld) [Partial pressure] 209 mmHg High 85-95 [facility] Comment on above: Order Comment: Speci men Type: ARTERIAL BLOOD SPECIMENOrdering Facility: [facility] Address: [address] [place] [address] Performed By: #### A LLMG ####[facility] LABCLIA [id number] [place] [address] [place] Oxyhemoglobin (BldA) [Mass fraction] 98 % Normal 95-98 [facility] Comment on above: Order Comment: Speci men Type: ARTERIAL BLOOD SPECIMENOrdering Facility: [facility] Address: [address] [place] [address] Performed By: #### A LLMG ####[facility] LABIA [id number] [place] [address] [place] pH (Bld) 7.35 [pH] Normal 7.35-7.45 [facility] Comment on above: Order Comment: Speci men Type: ARTERIAL BLOOD SPECIMENOrdering Facility: [facility] Address: [address] [place] [address] Performed By: #### A LLMG ####[facility] LABCLIA [id number] [place] [address] [place] pH adjusted to patient's actual temperature (Bld) 7.35 Normal 7.35-7.45 [facility] Comment on above: Order Comment: Speci men Type: ARTERIAL BLOOD SPECIMENOrdering Facility: [facility] Address: [address] [place] [address] Performed By: #### A LLMG ####[facility] LABCLIA [id number] [place] [id number] [place] Potassium [Moles/Vol] 4.7 mmol/L Normal 3.5-5.0 [facility] Comment on above: Order Comment: Speci men Type: ARTERIAL BLOOD SPECIMENOrdering Facility: [facility] Address: [address] [place] [address] Performed By: #### A LLMG ####[facility] LABIA [id number] [place] [address] [place] Sodium [Moles/Vol] 136 mmol/L Normal 136-144 [facility] Comment on above: Order Comment: Speci men Type: ARTERIAL BLOOD SPECIMENOrdering Facility: [facility] Address: [address] [place] [address] Performed By: #### A LLMG ####[facility] LABIA [id number] [place] [address] [place] Base deficit (BldA) [Moles/Vol] -4 mmol/L Low -2-0 [facility] Comment on above: Order Comment: Speci men Type: ARTERIAL BLOOD SPECIMENOrdering Facility: [facility] Address: [address] [place] [address] Performed By: #### A LLMG ####[facility] LABIA [id number] [place] [address] [place] Calcium.ionized (Bld) [Mass/Vol] 1.28 mmol/L Normal 1.08-1.30 [facility] Comment on above: Order Comment: Speci men Type: ARTERIAL BLOOD SPECIMENOrdering Facility: [facility] Address: [address] [place] [address] Performed By: #### A LLMG ####[facility] LABIA [id number] [place] [address] [place] Calcium.ionized adjusted to pH 7.4 (BldA) [Moles/Vol] 1.22 mmol/L Normal 1.08-1.30 [facility] Comment on above: Order Comment: Speci men Type: ARTERIAL BLOOD SPECIMENOrdering Facility: [facility] Address: [address] [place] [address] Performed By: #### A LLMG ####[facility] LABCLIA [id number] [place] [address] [place] Carboxyhemoglobin (BldA) [Mass fraction] 1.9 % Normal 0.0-2.0 [facility] Comment on above: Order Comment: Speci men Type: ARTERIAL BLOOD SPECIMENOrdering Facility: [facility] Address: [address] [place] [address] Result Comment: Carb oxyhemoglobin Reference Range for Smokers: 2.0-8.0% Performed By: #### A LLMG ####[facility] LABCLIA [id number] [place] [address] [place] CO2 (Bld) [Partial pressure] 43 mm Hg Normal 36-46 [facility] Comment on above: Order Comment: Speci men Type: ARTERIAL BLOOD SPECIMENOrdering Facility: [facility] Address: [address] [place] [address] Performed By: #### A LLMG ####[facility] LABCLIA [id number] [place] [address] [place] CO2 adjusted to patient's actual temperature (Bld) [Partial pressure] 43 mmHg Normal 36-46 [facility] Comment on above: Order Comment: Speci men Type: ARTERIAL BLOOD SPECIMENOrdering Facility: [facility] Address: [address] [place] [address] Performed By: #### A LLMG ####[facility] LABCLIA [id number] [place] [address] [place] Glucose [Mass/Vol] 109 mg/dL High 60-105 [facility] Comment on above: Order Comment: Speci men Type: ARTERIAL BLOOD SPECIMENOrdering Facility: [facility] Address: [address] [place] [address] Performed By: #### A LLMG ####[facility] LABCLIA [id number] [address] [address] [place] HCO3 (Bld) [Moles/Vol] 22 mmol/L Normal 22-26 [facility] Comment on above: Order Comment: Speci men Type: ARTERIAL BLOOD SPECIMENOrdering Facility: [facility] Address: [address] [place] [address] Performed By: #### A LLMG ####[facility] LABCLIA [id number] [place] [address] [place] Hematocrit (Bld) [Volume fraction] 27.5 % Low 36.0-46.0 [facility] Comment on above: Order Comment: Speci men Type: ARTERIAL BLOOD SPECIMENOrdering Facility: [facility] Address: [address] [place] [address] Performed By: #### A LLMG ####[facility] LABIA [id number] [place] [address] [place] Hemoglobin (Bld) [Mass/Vol] 8.9 g/dL Low 11.5-15.5 [facility] Comment on above: Order Comment: Speci men Type: ARTERIAL BLOOD SPECIMENOrdering Facility: [facility] Address: [address] [place] [address] Performed By: #### A LLMG ####[facility] LABIA [id number] [place] [address] [place] Lactate [Moles/Vol] 1.5 mmol/L Normal 0.5-2.2 [facility] Comment on above: Order Comment: Speci men Type: ARTERIAL BLOOD SPECIMENOrdering Facility: [facility] Address: [address] [place] [address] Performed By: #### A LLMG ####[facility] LABCLIA [id number] [place] [id number] [place] Magnesium [Moles/Vol] 0.67 mmol/L High 0.45-0.60 [facility] Comment on above: Order Comment: Speci men Type: ARTERIAL BLOOD SPECIMENOrdering Facility: [facility] Address: [address] [place] [address] Performed By: #### A LLMG ####[facility] LABCLIA [id number] [address] [address] [place] Methemoglobin (Bld) [Mass fraction] 1.3 % Normal 0.0-1.5 [facility] Comment on above: Order Comment: Speci men Type: ARTERIAL BLOOD SPECIMENOrdering Facility: [facility] Address: [address] [place] [address] Performed By: #### A LLMG ####[facility] LABCLIA [id number] [place] [id number] [place] Oxygen (Bld) [Partial pressure] 178 mm Hg High 85-95 [facility] Comment on above: Order Comment: Speci men Type: ARTERIAL BLOOD SPECIMENOrdering Facility: [facility] Address: [address] [place] [address] Performed By: #### A LLMG ####[facility] LABCLIA [id number] [place] [id number] [place] Oxygen adjusted to patient's actual temperature (Bld) [Partial pressure] 178 mmHg High 85-95 [facility] Comment on above: Order Comment: Speci men Type: ARTERIAL BLOOD SPECIMENOrdering Facility: [facility] Address: [address] [place] [address] Performed By: #### A LLMG ####[facility] LABCLIA [id number] [place] [id number] [place] Oxyhemoglobin (BldA) [Mass fraction] 96 % Normal 95-98 [facility] Comment on above: Order Comment: Speci men Type: ARTERIAL BLOOD SPECIMENOrdering Facility: [facility] Address: [address] [place], [place] [address] Performed By: #### A LLMG ####[facility] LABCLIA [id number] [address] [address] [place] pH (Bld) 7.32 [pH] Low 7.35-7.45 [facility] Comment on above: Order Comment: Speci men Type: ARTERIAL BLOOD SPECIMENOrdering Facility: [facility] Address: [address] [place] [address] Performed By: #### A LLMG ####[facility] LABCLIA [id number] [address] [address] [place] pH adjusted to patient's actual temperature (Bld) 7.32 Low 7.35-7.45 [facility] Comment on above: Order Comment: Speci men Type: ARTERIAL BLOOD SPECIMENOrdering Facility: [facility] Address: [address] [place] [address] Performed By: #### A LLMG ####[facility] LABIA [id number] [place] [id number] [place] Potassium [Moles/Vol] 4.2 mmol/L Normal 3.5-5.0 [facility] Comment on above: Order Comment: Speci men Type: ARTERIAL BLOOD SPECIMENOrdering Facility: [facility] Address: [address] [place] [address] Performed By: #### A LLMG ####[facility] LABCLIA [id number] [place] [id number] [place] Sodium [Moles/Vol] 138 mmol/L Normal 136-144 [facility] Comment on above: Order Comment: Speci men Type: ARTERIAL BLOOD SPECIMENOrdering Facility: [facility] Address: [address] [place] [address] Performed By: #### A LLMG ####[facility] LABCLIA [id number] [address] [address] [place] BRIEF OP NOTon 12-12-2024 BRIEF OP NOT Normal [facility] CASE MANAGEMon 12-12-2024 CASE MANAGEM Normal [facility] CBC panel Auto (Bld)on 12-12 Erythrocyte distribution width (RBC) [Ratio] 22.2 % High 11.5-15.0 [facility] Comment on above: Order Comment: Speci men Type: BLOOD SPECIMENOrdering Facility: [facility] Address: [address] [place] [address] Performed By: #### 5 8410-2 ####[facility] LABCLIA [id number] [place] [address] [place] Hematocrit (Bld) [Volume fraction] 28.3 % Low 36.0-46.0 [facility] Comment on above: Order Comment: Speci men Type: BLOOD SPECIMENOrdering Facility: [facility] Address: [address] [place] [address] Performed By: #### 5 8410-2 ####[facility] LABCLIA [id number] [place] [address] [place] Hemoglobin (Bld) [Mass/Vol] 8.6 g/dL Low 11.5-15.5 [facility] Comment on above: Order Comment: Speci men Type: BLOOD SPECIMENOrdering Facility: [facility] Address: [address] [place] [address] Performed By: #### 5 8410-2 ####[facility] LABIA [id number] [place] [address] [place] MCH (RBC) [Entitic mass] 26.4 pg Normal 26.0-34.0 [facility] Comment on above: Order Comment: Speci men Type: BLOOD SPECIMENOrdering Facility: [facility] Address: [address] [place] [address] Performed By: #### 5 8410-2 ####[facility] LABCLIA [id number] [place] [id number] [place] MCHC (RBC) [Mass/Vol] 30.4 g/dL Low 30.5-36.0 [facility] Comment on above: Order Comment: Speci men Type: BLOOD SPECIMENOrdering Facility: [facility] Address: [address] [place] [address] Performed By: #### 5 8410-2 ####[facility] LABIA [id number] [place] [address] [place] MCV (RBC) [Entitic vol] 86.8 fL Normal 80.0-100.0 [facility] Comment on above: Order Comment: Speci men Type: BLOOD SPECIMENOrdering Facility: [facility] Address: [address] [place] [address] Performed By: #### 5 8410-2 ####[facility] LABIA [id number] [place] [address] [place] Nucleated RBC (Bld) [#/Vol] 0.02 10*3/uL High <0.01 [facility] Comment on above: Order Comment: Speci men Type: BLOOD SPECIMENOrdering Facility: [facility] Address: [address] [place] [address] Performed By: #### 5 8410-2 ####[facility] LABIA [id number] [place] [address] [place] Platelet mean volume (Bld) [Entitic vol] 9.3 fL Normal 9.0-12.7 [facility] Comment on above: Order Comment: Speci men Type: BLOOD SPECIMENOrdering Facility: [facility] Address: [address] [place] [address] Performed By: #### 5 8410-2 ####[facility] LABIA [id number] [place] [address] [place] Platelets (Bld) [#/Vol] 292 10*3/uL Normal 150-400 [facility] Comment on above: Order Comment: Speci men Type: BLOOD SPECIMENOrdering Facility: [facility] Address: [address] [place] [address] Performed By: #### 5 8410-2 ####[facility] LABIA [id number] [place] [id number] [place] RBC (Bld) [#/Vol] 3.26 10*6/uL Low 3.90-5.20 [facility] Comment on above: Order Comment: Speci men Type: BLOOD SPECIMENOrdering Facility: [facility] Address: [address] [place] [address] Performed By: #### 5 8410-2 ####[facility] LABIA [id number] [place] [id number] [place] WBC (Bld) [#/Vol] 6.93 10*3/uL Normal 3.70-11.00 [facility] Comment on above: Order Comment: Speci men Type: BLOOD SPECIMENOrdering Facility: [facility] Address: [address] [place] [address] Performed By: #### 5 8410-2 ####[facility] LABIA [id number] [place] [id number] [place] Comprehensive metabolic 2000 panelon 12-12-2024 Albumin [Mass/Vol] 3.2 g/dL Low 3.9-4.9 [facility] Comment on above: Order Comment: Speci men Type: BLOOD SPECIMENOrdering Facility: [facility] Address: [address] [place] [address] Performed By: #### 2 4323-8, , 277-1 ####[facility] LABIA [id number] [place] [id number] [place] ALP [Catalytic activity/Vol] 173 U/L High 34-123 [facility] Comment on above: Order Comment: Speci men Type: BLOOD SPECIMENOrdering Facility: [facility] Address: [address] [place] [address] Performed By: #### 2 4323-8, , 2776-06 ####[facility] LABCLIA [id number] [address] [address] [place] ALT [Catalytic activity/Vol] 41 U/L High 7-38 [facility] Comment on above: Order Comment: Speci men Type: BLOOD SPECIMENOrdering Facility: [facility] Address: [address] [place] [address] Performed By: #### 2 4323-8, , 2776-06 ####[facility] LABIA [id number] [address] [address] [place] Anion gap [Moles/Vol] 12 mmol/L Normal 8-15 [facility] Comment on above: Order Comment: Speci men Type: BLOOD SPECIMENOrdering Facility: [facility] Address: [address] [place] [address] Performed By: #### 2 4323-8, , 2776-06 ####[facility] LABIA [id number] [place] [address] [place] AST [Catalytic activity/Vol] 33 U/L Normal 13-35 [facility] Comment on above: Order Comment: Speci men Type: BLOOD SPECIMENOrdering Facility: [facility] Address: [address] [place] [address] Result Comment: Resu lts may be falsely increased due to interference from hemolysis. Suggest reorder as clinically indicated. Performed By: #### 2 4323-8, , 2776-06 ####[facility] [id number] [place] [id number] [place] Bilirubin [Mass/Vol] 0.5 mg/dL Normal 0.2-1.3 [facility] Comment on above: Order Comment: Speci men Type: BLOOD SPECIMENOrdering Facility: [facility] Address: [address] [place] [address] Performed By: #### 2 43238, , 2776-06 ####[facility] LABCLIA [id number] [address] [address] [place] Calcium [Mass/Vol] 8.7 mg/dL Normal 8.5-10.2 [facility] Comment on above: Order Comment: Speci men Type: BLOOD SPECIMENOrdering Facility: [facility] Address: [address] [place] [address] Performed By: #### 2 432-8, , 2776-06 ####[facility] LABCLIA [id number] [place] [address] [place] Chloride [Moles/Vol] 105 mmol/L Normal 98-107 [facility] Comment on above: Order Comment: Speci men Type: BLOOD SPECIMENOrdering Facility: [facility] Address: [address] [place] [address] Performed By: #### 2 432-8, , 2776-06 ####[facility] LABCLIA [id number] [place] [address] [place] CO2 [Moles/Vol] 20 mmol/L Low 22-30 [facility] Comment on above: Order Comment: Speci men Type: BLOOD SPECIMENOrdering Facility: [facility] Address: [address] [place] [address] Performed By: #### 2 4323-8, , 2776-06 ####[facility] LABCLIA [id number] [place] [address] [place] Creatinine [Mass/Vol] 0.82 mg/dL Normal 0.58-0.96 [facility] Comment on above: Order Comment: Speci men Type: BLOOD SPECIMENOrdering Facility: [facility] Address: [address] [place], [place] [address] Performed By: #### 2 4323-8, , 2776-06 ####[facility] LABCLIA [id number] [place] [address] [place] Creatinine and Glomerular filtration rate.predicted panel (S/P/Bld) 92 mL/min/1.73m??? Normal >=60 [facility] Comment on above: Order Comment: Dora finch Type: BLOOD SPECIMENOrdering Facility: [facility] Address: [address] [place] [address] Result Comment: Zeny mated Glomerular Filtration Rate [...] actual GFR. Performed By: #### 2 4323-8, 71732-9, 7- ####[facility] [id number] [place] [address] [place] Glucose [Mass/Vol] 100 mg/dL High 74-99 [facility] Comment on above: Order Comment: Dora finch Type: BLOOD SPECIMENOrdering Facility: [facility] Address: [address] [place] [address] Result Comment: The [place] Diabetes Association (ADA) provides guidance for cutoff [...] Standards of Medical Care in Diabetes 2016, [place] Diabetes Association. Diabetes Care. 2016.39(Suppl 1). Performed By: #### 2 4323-8, 26294-7, 2777-1 ####[facility] LABIA [id number] [address] [address] [place] Potassium [Moles/Vol] 4.4 mmol/L Normal 3.7-5.1 [facility] Comment on above: Order Comment: Speci men Type: BLOOD SPECIMENOrdering Facility: [facility] Address: [address] [place] [address] Performed By: #### 2 4323-8, , 2776-06 ####[facility] LABCLIA [id number] [place] [address] [place] Protein [Mass/Vol] 6.4 g/dL Normal 6.3-8.0 [facility] Comment on above: Order Comment: Speci men Type: BLOOD SPECIMENOrdering Facility: [facility] Address: [address] [place] [address] Performed By: #### 2 432-8, , 2776-06 ####[facility] LABCLIA [id number] [place] [address] [place] Sodium [Moles/Vol] 137 mmol/L Normal 136-144 [facility] Comment on above: Order Comment: Speci men Type: BLOOD SPECIMENOrdering Facility: [facility] Address: [address] [place] [address] Performed By: #### 2 432-8, , 2776-06 ####[facility] LABCLIA [id number] [address], [facility]95 [place] Urea nitrogen [Mass/Vol] 20 mg/dL Normal 7-21 [facility] Comment on above: Order Comment: Speci men Type: BLOOD SPECIMENOrdering Facility: [facility] Address: [address] [place], [place] [address] Performed By: #### 2 4323-8, , 2776-06 ####[facility] LABCLIA [id number] [address] [place] [address] [place] Lactate (Bld) [Moles/Vol]on 12-12-2024 Lactate [Moles/Vol] 5.2 mmol/L High 0.5-2.2 [facility] Comment on above: Order Comment: Speci men Type: BLOOD SPECIMENOrdering Facility: [facility] Address: [address] [place] [address] Performed By: #### 3 2693-4 ####[facility] LABIA [id number] [place] [address] [place] Magnesium SerPl-mCncon 12-12 Magnesium [Mass/Vol] 1.8 mg/dL Normal 1.7-2.3 [facility] Comment on above: Order Comment: Speci men Type: BLOOD SPECIMENOrdering Facility: [facility] Address: [address] [place] [address] Performed By: #### 2 4323-8, 91929-8, 2777-1 ####[facility] [id number] [place] [address] [place] OPERATIVE NOon 12-12-2024 OPERATIVE NO Normal [facility] PTT, ANTICOAGULANT THERAPYon 12-12-2024 aPTT Coag (PPP) [Time] 22.2 s Low 23.0-32.4 [facility] Comment on above: Order Comment: Speci men Type: BLOOD SPECIMENOrdering Facility: [facility] Address: [address] [place] [address] Performed By: #### P TTAC ####[facility] [id number] [place] [address] [place] Pathology biopsy report Stan (Tiss)on 12-12-2024 AP DISCLAIMER Normal [facility] Comment on above: Order Comment: Speci men Type: TISSUE SPECIMENOrdering Facility: [facility] Address: [address] [place] [address] Result Comment: Billie cardenas Developed Test (LDT) Disclaimer:Performance characteristics of immunohistochemical, immunofluorescent, and chromogenic in-situ hybridization tests have been determined by the performing laboratory within [facility] Morales Pathology and Laboratory Medicine Department ([facility], [facility], [facility], [facility], [facility], [facility], or [facility]) in a manner consistent with CLIA requirements. One or more of these tests may not have been cleared or approved by the FDA. [facility] is regulated under CLIA as qualified to perform high-complexity testing. These tests are used for clinical purposes. These should not be regarded as investigational or for research. Positive and negative controls stain appropriately. Performed By: #### 6 6121-5 ####[facility] LABIA [id number] [address] [place] CASE REPORT Normal [facility] Comment on above: Order Comment: Speci men Type: TISSUE SPECIMENOrdering Facility: [facility] Address: [address] [place] [address] Result Comment: Surg ical Pathology Report Case: [id number] Provider: Kirit Devine MD Collected: 12/12/2024 10:48 AMOrdering Location: Admitting Received: 12/12/2024 03:06 PMPathologist: Kae Manning MDSpecimens: A) - Omentum, Resection, omentum B) - Small Bowel, Ileostomy, Loop ileostomy C) - Soft Tissue (Not otherwise specified), Peristomal Fat Performed By: #### 6 6121-5 ####[facility] LABIA [id number] [place] [address] [place] CLINICAL HISTORY Normal [facility] Comment on above: Order Comment: Speci men Type: TISSUE SPECIMENOrdering Facility: [facility] Address: [address] [place] [address] Result Comment: Pre- op diagnosis:High output ileostomy (HCC) [R19.8, Z93.2] Performed By: #### 6 6121-5 ####[facility] LABCLIA [id number] [address] [place] FINAL DIAGNOSIS Normal [facility] Comment on above: Order Comment: Speci men Type: TISSUE SPECIMENOrdering Facility: [facility] Address: [address] [place] [address] Result Comment: A. O mentum, omentectomy:- Benign mature adipose tissue.B. Ileum, ileostomy takedown:- Enterocutaneous tissue with histologic features consistent with an ileostomy site.C. Soft tissue, peristomal fat, excision:- Fibroadipose tissue with fat necrosis. at 1624 EDT Performed By: #### 6 6121-5 ####[facility] LABCLIA [id number] [address] OF [facility] FINAL PERFORMING LAB Normal [facility] Comment on above: Order Comment: Speci men Type: TISSUE SPECIMENOrdering Facility: [facility] Address: [address] [place] [address] Result Comment: Diag nostic interpretation performed at: [facility], [address] [place] [address] CLIA# [id number] Director: Jaison Lema MD Performed By: #### 6 6121-5 ####[facility] LABCLIA [id number] [address] OF [place] GROSS DESCRIPTION Normal [facility] Comment on above: Order Comment: Speci men Type: TISSUE SPECIMENOrdering Facility: [facility] Address: [address] [place] [address] Result Comment: A. O mentum, ResectionReceived fresh labeled omentum is a 15.0 x 14.0 x 1.0 cm aggregate of cunha-yellow, lobulated soft tissue consistent with omentum. No nodules are areas of induration are seen. Sectioning reveals yellow, homogeneous cut surfaces. Metal Work Duct Installer section submitted in A1.B. Small Bowel, IleostomyReceived [...] polyps or mass lesions are identified. A territory sales representative section of the ostomy site is submitted in B1.C. Soft Tissue (Not otherwise specified)Received fresh labeled peristomal fat is a 4.0 x 3.5 x 2.0 cm cunha-yellow lobulated soft tissue fragment. Sectioning reveals cunha-yellow homogenous cut surfaces. No nodules or areas of induration are grossly appreciated. Metal Work Duct Installer section submitted in C1.Gross examination performed at [facility], [address] [place], [place] [address]MSL/ARIELA 12/12/24 3:23 PM Performed By: #### 6 6121-5 ####[facility] LABIA [id number] [place] [address] [place] Phosphate SerPl-mCncon 12-12 Phosphate [Mass/Vol] 3.7 mg/dL Normal 2.7-4.8 [facility] Comment on above: Order Comment: Speci men Type: BLOOD SPECIMENOrdering Facility: [facility] Address: [address] [place] [address] Performed By: #### 2 4323-8, 53780-8, 2777-1 ####[facility] [id number] [place] [address] [place] CBC panel Auto (Bld)on 12-11 Erythrocyte distribution width (RBC) [Ratio] 22.3 % High 11.5-15.0 [facility] Comment on above: Order Comment: Speci men Type: BLOOD SPECIMENOrdering Facility: [facility] Address: [address] [place] [address] Performed By: #### 5 8410-2 ####[facility] LABIA [id number] [place] [address] [place] Hematocrit (Bld) [Volume fraction] 26.7 % Low 36.0-46.0 [facility] Comment on above: Order Comment: Speci men Type: BLOOD SPECIMENOrdering Facility: [facility] Address: [address] [place] [address] Performed By: #### 5 8410-2 ####[facility] LABIA [id number] [place] [address] [place] Hemoglobin (Bld) [Mass/Vol] 8.3 g/dL Low 11.5-15.5 [facility] Comment on above: Order Comment: Speci men Type: BLOOD SPECIMENOrdering Facility: [facility] Address: [address] [place] [address] Performed By: #### 5 8410-2 ####[facility] [id number] [place] [address] [place] MCH (RBC) [Entitic mass] 28.0 pg Normal 26.0-34.0 [facility] Comment on above: Order Comment: Speci men Type: BLOOD SPECIMENOrdering Facility: [facility] Address: [address] [place] [address] Performed By: #### 5 8410-2 ####[facility] [id number] [address] [place] MCHC (RBC) [Mass/Vol] 31.1 g/dL Normal 30.5-36.0 [facility] Comment on above: Order Comment: Speci men Type: BLOOD SPECIMENOrdering Facility: [facility] Address: [address] [place] [address] Performed By: #### 5 8410-2 ####[facility] [id number] [place] [address] [place] MCV (RBC) [Entitic vol] 90.2 fL Normal 80.0-100.0 [facility] Comment on above: Order Comment: Speci men Type: BLOOD SPECIMENOrdering Facility: [facility] Address: [address] [place] [address] Performed By: #### 5 8410-2 ####[facility] LABCLIA [id number] [facility] [address] [place] [address] [place] Nucleated RBC (Bld) [#/Vol] 0.02 10*3/uL High <0.01 [facility] Comment on above: Order Comment: Speci men Type: BLOOD SPECIMENOrdering Facility: [facility] Address: [address] [place] [address] Performed By: #### 5 8410-2 ####[facility] LABIA [id number] [address], [facility]95 [place] Platelet mean volume (Bld) [Entitic vol] 11.2 fL Normal 9.0-12.7 [facility] Comment on above: Order Comment: Speci men Type: BLOOD SPECIMENOrdering Facility: [facility] Address: [address] [place] [address] Performed By: #### 5 8410-2 ####[facility] LABIA [id number] [address], [facility]95 [place] Platelets (Bld) [#/Vol] 301 10*3/uL Normal 150-400 [facility] Comment on above: Order Comment: Speci men Type: BLOOD SPECIMENOrdering Facility: [facility] Address: [address] [place] [address] Performed By: #### 5 8410-2 ####[facility] LABIA [id number] [address], [facility]95 [place] RBC (Bld) [#/Vol] 2.96 10*6/uL Low 3.90-5.20 [facility] Comment on above: Order Comment: Speci men Type: BLOOD SPECIMENOrdering Facility: [facility] Address: [address] [place] [address] Performed By: #### 5 8410-2 ####[facility] LABIA [id number] [address], [facility]95 [place] WBC (Bld) [#/Vol] 6.78 10*3/uL Normal 3.70-11.00 [facility] Comment on above: Order Comment: Speci men Type: BLOOD SPECIMENOrdering Facility: [facility] Address: [address] [place] [address] Performed By: #### 5 8410-2 ####[facility] LABIA [id number] [place] [address] [place] CONSULT PROGon 12-11-2024 CONSULT PROG Normal [facility] CONSULT PROG Normal [facility] CONSULT PROG Normal [facility] Comprehensive metabolic 2000 panelon 12-11-2024 Albumin [Mass/Vol] 3.5 g/dL Low 3.9-4.9 [facility] Comment on above: Order Comment: Speci men Type: BLOOD SPECIMENOrdering Facility: [facility] Address: [address] [place] [address] Performed By: #### 2 4323-8, 15066-0, 277-1, 2570-8 ####[facility] LABIA [id number] [place] [address] [place] ALP [Catalytic activity/Vol] 205 U/L High 34-123 [facility] Comment on above: Order Comment: Speci men Type: BLOOD SPECIMENOrdering Facility: [facility] Address: [address] [place] [address] Performed By: #### 2 4323-8, 78687-3, 277-1, 257-8 ####[facility] LABIA [id number] [place] [address] [place] ALT [Catalytic activity/Vol] 45 U/L High 7-38 [facility] Comment on above: Order Comment: Speci men Type: BLOOD SPECIMENOrdering Facility: [facility] Address: [address] [place] [address] Performed By: #### 2 4323-8, , 2776-06, 2571-01 ####[facility] LABCLIA [id number] [address] [address] [place] Anion gap [Moles/Vol] 12 mmol/L Normal 8-15 [facility] Comment on above: Order Comment: Speci men Type: BLOOD SPECIMENOrdering Facility: [facility] Address: [address] [place] [address] Performed By: #### 2 4323-8, , 2776-06, 2571-01 ####[facility] LABIA [id number] [place] [address] [place] AST [Catalytic activity/Vol] 38 U/L High 13-35 [facility] Comment on above: Order Comment: Speci men Type: BLOOD SPECIMENOrdering Facility: [facility] Address: [address] [place] [address] Performed By: #### 2 4323-8, , 2776-06, 2571-01 ####[facility] LABIA [id number] [place] [address] [place] Bilirubin [Mass/Vol] 0.5 mg/dL Normal 0.2-1.3 [facility] Comment on above: Order Comment: Speci men Type: BLOOD SPECIMENOrdering Facility: [facility] Address: [address] [place], [place] [address] Performed By: #### 2 4323-8, , 2776-06, 2571-01 ####[facility] LABIA [id number] [address] [address] [place] Calcium [Mass/Vol] 9.3 mg/dL Normal 8.5-10.2 [facility] Comment on above: Order Comment: Speci men Type: BLOOD SPECIMENOrdering Facility: [facility] Address: [address] [place], [place] [address] Performed By: #### 2 4323-8, , 2776-06, 2571-01 ####[facility] LABCLIA [id number] [address] [address] [place] Chloride [Moles/Vol] 102 mmol/L Normal 98-107 [facility] Comment on above: Order Comment: Speci men Type: BLOOD SPECIMENOrdering Facility: [facility] Address: [address] [place] [address] Performed By: #### 2 4323-8, , 2776-06, 2571-01 ####[facility] LABIA [id number] [place] [address] [place] CO2 [Moles/Vol] 24 mmol/L Normal 22-30 [facility] Comment on above: Order Comment: Speci men Type: BLOOD SPECIMENOrdering Facility: [facility] Address: [address] [place] [address] Performed By: #### 2 4323-8, 41118-2, 2776-06, 2571-01 ####[facility] LABIA [id number] [place] [address] [place] Creatinine [Mass/Vol] 0.77 mg/dL Normal 0.58-0.96 [facility] Comment on above: Order Comment: Speci men Type: BLOOD SPECIMENOrdering Facility: [facility] Address: [address] [place] [address] Performed By: #### 2 4323-8, 89095-0, 2776-06, 2571-01 ####[facility] LABIA [id number] [address] [address] [place] Creatinine and Glomerular filtration rate.predicted panel (S/P/Bld) 100 mL/min/1.73m??? Normal >=60 [facility] Comment on above: Order Comment: Speci men Type: BLOOD SPECIMENOrdering Facility: [facility] Address: [address] [place] [address] Result Comment: Zeny mated Glomerular Filtration Rate [...] By: #### 2 4323-8, , 2776-06, 2571-01 ####[facility] LABIA [id number] [address] [address] [place] Glucose [Mass/Vol] 118 mg/dL High 74-99 [facility] Comment on above: Order Comment: Dora finch Type: BLOOD SPECIMENOrdering Facility: [facility] Address: [address] [place] [id number] Result Comment: The [place] Diabetes Association (ADA) provides guidance for cutoff [...] Standards of Medical Care in Diabetes 2016, [place] [employer]. Diabetes Care. 2016.39(Suppl 1). Performed By: #### 2 4323-8, , 2776-06, 2571-01 ####[facility] LABIA [id number] [address] [address] [place] Potassium [Moles/Vol] 4.0 mmol/L Normal 3.7-5.1 [facility] Comment on above: Order Comment: Dora finch Type: BLOOD SPECIMENOrdering Facility: [facility] Address: [address] [place] [address] Performed By: #### 2 4323-8, , 2776-06, 8 ####[facility] LABIA [id number] [address] [address] [place] Protein [Mass/Vol] 7.1 g/dL Normal 6.3-8.0 [facility] Comment on above: Order Comment: Speci men Type: BLOOD SPECIMENOrdering Facility: [facility] Address: [address] [place] [address] Performed By: #### 2 4323-8, , 2776-06, 8 ####[facility] LABIA [id number] [place] [address] [place] Sodium [Moles/Vol] 138 mmol/L Normal 136-144 [facility] Comment on above: Order Comment: Speci men Type: BLOOD SPECIMENOrdering Facility: [facility] Address: [address] [place] [address] Performed By: #### 2 4323-8, , 2776-06, 2571-01 ####[facility] [id number] [place] [address] [place] Urea nitrogen [Mass/Vol] 17 mg/dL Normal 7-21 [facility] Comment on above: Order Comment: Speci men Type: BLOOD SPECIMENOrdering Facility: [facility] Address: [address] [place] [address] Performed By: #### 2 4323-8, 25250-4, 2776-06, 8 ####[facility] LABIA [id number] [address] [address] [place] Magnesium SerPl-mCncon 12-11 Magnesium [Mass/Vol] 1.9 mg/dL Normal 1.7-2.3 [facility] Comment on above: Order Comment: Speci men Type: BLOOD SPECIMENOrdering Facility: [facility] Address: [address] [place] [address] Performed By: #### 2 4323-8, 01934-9, 2777-1, 2570-8 ####[facility] [id number] [address] [address] [place] NUTRITIONon 12-11-2024 NUTRITION Normal [facility] PTT, ANTICOAGULANT THERAPYon 12-11-2024 aPTT Coag (PPP) [Time] 55.2 s High 23.0-32.4 [facility] Comment on above: Order Comment: Speci men Type: BLOOD SPECIMENOrdering Facility: [facility] Address: [address] [place] [address] Performed By: #### P TTAC ####[facility] [id number] [address] [place] aPTT Coag (PPP) [Time] 68.6 s High 23.0-32.4 [facility] Comment on above: Order Comment: Speci men Type: BLOOD SPECIMENOrdering Facility: [facility] Address: [address] [place] [address] Performed By: #### P TTAC ####[facility] [id number] [place] [address] [place] Phosphate SerPl-mCncon 12-11 Phosphate [Mass/Vol] 3.1 mg/dL Normal 2.7-4.8 [facility] Comment on above: Order Comment: Speci men Type: BLOOD SPECIMENOrdering Facility: [facility] Address: [address] [place] [address] Performed By: #### 2 4323-8, 97318-3, 2777-1, 2570-8 ####[facility] [id number] [place] [address] [place] Trigl SerPl-mCncon Triglyceride [Mass/Vol] 107 mg/dL Normal <150 [facility] Comment on above: Order Comment: Speci men Type: BLOOD SPECIMENOrdering Facility: [facility] Address: [address] [place] [address] Result Comment: <150 mg/dL, Normal 150-199 mg/dL, Borderline high 200-499 mg/dL, High>499 mg/dL, Very highReference:1. National Cholesterol Education Program ATP III Guideline At-A-Glance Quick Desk Reference: National Heart, Lung, and Blood Boss. National Institutes of Health. 2001: NIH Publication No. 01-3305. Performed By: #### 2 4323-8, 13291-5, 2777-1, 2571-8 ####[facility] [id number] [place] [address] [place] Triglyceride [Mass/Vol]on FASTING TIME 0 hrs Normal [facility] Comment on above: Order Comment: Speci men Type: BLOOD SPECIMENOrdering Facility: [facility] Address: [address] [place] [address] Performed By: #### 2 4323-8, 96084-9, 2777-1, 257-8 ####[facility] LABIA [id number] [place] [address] [place] Vancomycin [place] SerPl-mCncon 12-11-2024 Vancomycin random [Mass/Vol] 14.8 ug/mL Normal 10.0-20.0 [facility] Comment on above: Order Comment: Speci men Type: BLOOD SPECIMENOrdering Facility: [facility] Address: [address] [place] [address] Result Comment: Refe rence ranges and high/low indicator flags are provided as general guidelines only. The treating physician must determine appropriate target levels/dosing based on the specific clinical situation. Performed By: #### 4 091-5 ####[facility] [id number] [place] [id number] [place] ANES POSTPROC EVALon 025 ANES POSTPROC EVAL Normal [facility] ANES PRE-OPon 12-10-2024 ANES PRE-OP Normal [facility] B-HCG SerPl-aCncon HCG.beta subunit Qn m[IU]/mL Normal <5.0 [facility] Comment on above: Order Comment: Speci men Type: BLOOD SPECIMENOrdering Facility: [facility] Address: [address] [place] [address] Result Comment: Negsameer timiles Performed By: #### 2 1198-7 ####[facility] LABIA [id number] [place] [address] [place] CASE MANAGEMon 12-10-2024 CASE MANAGEM Normal [facility] CBC panel Auto (Bld)on 12-10 Erythrocyte distribution width (RBC) [Ratio] 21.9 % High 11.5-15.0 [facility] Comment on above: Order Comment: Speci men Type: BLOOD SPECIMENOrdering Facility: [facility] Address: [address] [place] [address] Performed By: #### 5 8410-2 ####[facility] LABIA [id number] [place] [address] [place] Hematocrit (Bld) [Volume fraction] 28.0 % Low 36.0-46.0 [facility] Comment on above: Order Comment: Speci men Type: BLOOD SPECIMENOrdering Facility: [facility] Address: [address] [place] [address] Performed By: #### 5 8410-2 ####[facility] LABIA [id number] [place] [address] [place] Hemoglobin (Bld) [Mass/Vol] 8.3 g/dL Low 11.5-15.5 [facility] Comment on above: Order Comment: Speci men Type: BLOOD SPECIMENOrdering Facility: [facility] Address: [address] [place] [address] Performed By: #### 5 8410-2 ####[facility] LABCLIA [id number] [place] [address] [place] MCH (RBC) [Entitic mass] 27.9 pg Normal 26.0-34.0 [facility] Comment on above: Order Comment: Speci men Type: BLOOD SPECIMENOrdering Facility: [facility] Address: [address] [place] [address] Performed By: #### 5 8410-2 ####[facility] LABIA [id number] [place] [address] [place] MCHC (RBC) [Mass/Vol] 29.6 g/dL Low 30.5-36.0 [facility] Comment on above: Order Comment: Speci men Type: BLOOD SPECIMENOrdering Facility: [facility] Address: [address] [place] [address] Performed By: #### 5 8410-2 ####[facility] [id number] [place] [address] [place] MCV (RBC) [Entitic vol] 94.0 fL Normal 80.0-100.0 [facility] Comment on above: Order Comment: Speci men Type: BLOOD SPECIMENOrdering Facility: [facility] Address: [address] [place] [address] Result Comment: MCV is >= 10% variation from the most recent sample, clinical correlation suggested to exclude specimen misidentification. Performed By: #### 5 8410-2 ####[facility] LABIA [id number] [place] [address] [place] Nucleated RBC (Bld) [#/Vol] 0.02 10*3/uL High <0.01 [facility] Comment on above: Order Comment: Speci men Type: BLOOD SPECIMENOrdering Facility: [facility] Address: [address] [place] [address] Performed By: #### 5 8410-2 ####[facility] LABIA [id number] [place] [address] [place] Platelet mean volume (Bld) [Entitic vol] 11.7 fL Normal 9.0-12.7 [facility] Comment on above: Order Comment: Speci men Type: BLOOD SPECIMENOrdering Facility: [facility] Address: [address] [place] [address] Performed By: #### 5 8410-2 ####[facility] LABCLIA [id number] [place] [address] [place] Platelets (Bld) [#/Vol] 389 10*3/uL Normal 150-400 [facility] Comment on above: Order Comment: Speci men Type: BLOOD SPECIMENOrdering Facility: [facility] Address: [address] [place] [address] Performed By: #### 5 8410-2 ####[facility] LABCLIA [id number] [place] [address] [place] RBC (Bld) [#/Vol] 2.98 10*6/uL Low 3.90-5.20 [facility] Comment on above: Order Comment: Speci men Type: BLOOD SPECIMENOrdering Facility: [facility] Address: [address] [place] [address] Performed By: #### 5 8410-2 ####[facility] LABIA [id number] [place] [address] [place] WBC (Bld) [#/Vol] 6.68 10*3/uL Normal 3.70-11.00 [facility] Comment on above: Order Comment: Speci men Type: BLOOD SPECIMENOrdering Facility: [facility] Address: [address] [place] [address] Result Comment: No c lot detected. Performed By: #### 5 8410-2 ####[facility] LABCLIA [id number] [place] [address] [place] CONSULT PROGon 12-10-2024 CONSULT PROG Normal [facility] CONSULT PROG Normal [facility] CRP SerPl-mCncon 12-10-2024 CRP [Mass/Vol] Normal <0.9 [facility] Comment on above: Order Comment: Speci men Type: BLOOD SPECIMENOrdering Facility: [facility] Address: [address] [place] [address] Result Comment: Poss ible contamination.Corrected result: Previously reported as <0.3 mg/dL on 12/10/2024 at 8:05 AM EDT. Performed By: #### 1 988-5 ####[facility] LABCLIA [id number] [place] [id number] [place] Comprehensive metabolic 2000 panelon 12-10-2024 Albumin [Mass/Vol] 3.7 g/dL Low 3.9-4.9 [facility] Comment on above: Order Comment: Speci men Type: BLOOD SPECIMENOrdering Facility: [facility] Address: [address] [place] [address] Performed By: #### 2 4323-8, , 2776-06 ####[facility] LABCLIA [id number] [place] [address] [place] ALP [Catalytic activity/Vol] 198 U/L High 34-123 [facility] Comment on above: Order Comment: Speci men Type: BLOOD SPECIMENOrdering Facility: [facility] Address: [address] [place] [address] Performed By: #### 2 4323-8, , 2776-06 ####[facility] LABCLIA [id number] [place] [address] [place] ALT [Catalytic activity/Vol] 43 U/L High 7-38 [facility] Comment on above: Order Comment: Speci men Type: BLOOD SPECIMENOrdering Facility: [facility] Address: [address] [place] [address] Performed By: #### 2 4323-8, , 2776- ####[facility] LABCLIA [id number] [address] [address] [place] Anion gap [Moles/Vol] 11 mmol/L Normal 8-15 [facility] Comment on above: Order Comment: Speci men Type: BLOOD SPECIMENOrdering Facility: [facility] Address: [address] [place] [address] Performed By: #### 2 4323-8, , 2776-06 ####[facility] LABCLIA [id number] [place] [address] [place] AST [Catalytic activity/Vol] 34 U/L Normal 13-35 [facility] Comment on above: Order Comment: Speci men Type: BLOOD SPECIMENOrdering Facility: [facility] Address: [address] [place] [address] Performed By: #### 2 4323-8, , 2776-06 ####[facility] LABCLIA [id number] [place] [address] [place] Bilirubin [Mass/Vol] 0.6 mg/dL Normal 0.2-1.3 [facility] Comment on above: Order Comment: Speci men Type: BLOOD SPECIMENOrdering Facility: [facility] Address: [address] [place] [address] Performed By: #### 2 4323-8, , 2776-06 ####[facility] LABCLIA [id number] [address], [facility]95 [place] Calcium [Mass/Vol] 9.6 mg/dL Normal 8.5-10.2 [facility] Comment on above: Order Comment: Speci men Type: BLOOD SPECIMENOrdering Facility: [facility] Address: [address] [place] [address] Performed By: #### 2 4323-8, , 2776-06 ####[facility] LABCLIA [id number] [address] [place] [address] [place] Chloride [Moles/Vol] 103 mmol/L Normal 98-107 [facility] Comment on above: Order Comment: Speci men Type: BLOOD SPECIMENOrdering Facility: [facility] Address: [address] [place], [place] [address] Performed By: #### 2 4323-8, 99193-4, 2776-06 ####[facility] LABCLIA [id number] [place] [address] [place] CO2 [Moles/Vol] 23 mmol/L Normal 22-30 [facility] Comment on above: Order Comment: Speci men Type: BLOOD SPECIMENOrdering Facility: [facility] Address: [address] [place] [address] Performed By: #### 2 4323-8, , 2776-06 ####[facility] LABIA [id number] [place] [address] [place] Creatinine [Mass/Vol] 0.85 mg/dL Normal 0.58-0.96 [facility] Comment on above: Order Comment: Speci men Type: BLOOD SPECIMENOrdering Facility: [facility] Address: [address] [place] [address] Performed By: #### 2 4323-8, 00228-6, 27712-25 ####[facility] LABIA [id number] [place] [address] [place] Creatinine and Glomerular filtration rate.predicted panel (S/P/Bld) 88 mL/min/1.73m??? Normal >=60 [facility] Comment on above: Order Comment: Speci men Type: BLOOD SPECIMENOrdering Facility: [facility] Address: [address] [place] [address] Result Comment: Zeny mated Glomerular Filtration Rate [...] Performed By: #### 2 4323-8, , 2776-06 ####[facility] LABCLIA [id number] [facility] [id number] [place] [address] [place] Glucose [Mass/Vol] 119 mg/dL High 74-99 [facility] Comment on above: Order Comment: Dora finch Type: BLOOD SPECIMENOrdering Facility: [facility] Address: [address] [place] [address] Result Comment: The [place] Diabetes Association (ADA) provides guidance for cutoff [...] Standards of Medical Care in Diabetes 2016, [place] Diabetes Association. Diabetes Care. 2016.39(Suppl 1). Performed By: #### 2 4323-8, , 2776-06 ####[facility] LABCLIA [id number] [facility] [address] [address] [place] Potassium [Moles/Vol] 4.8 mmol/L Normal 3.7-5.1 [facility] Comment on above: Order Comment: Dora finch Type: BLOOD SPECIMENOrdering Facility: [facility] Address: [address] [place] [address] Performed By: #### 2 4323-8, , 2776-06 ####[facility] LABCLIA [id number] [facility] AVEN[address] [id number], [place] [address] [place] Protein [Mass/Vol] 7.4 g/dL Normal 6.3-8.0 [facility] Comment on above: Order Comment: Speci men Type: BLOOD SPECIMENOrdering Facility: [facility] Address: [address] [place], [place] [address] Performed By: #### 2 4323-8, , 2776-06 ####[facility] LABCLIA [id number] [address] [address] [place] Sodium [Moles/Vol] 137 mmol/L Normal 136-144 [facility] Comment on above: Order Comment: Speci men Type: BLOOD SPECIMENOrdering Facility: [facility] Address: [address] [place], [place] [address] Performed By: #### 2 4323-8, , 2776-06 ####[facility] LABCLIA [id number] [place] [address] [place] Urea nitrogen [Mass/Vol] 16 mg/dL Normal 7-21 [facility] Comment on above: Order Comment: Speci men Type: BLOOD SPECIMENOrdering Facility: [facility] Address: [address] [place], [place] [address] Performed By: #### 2 4323-8, , 2776-06 ####[facility] LABIA [id number] [address] [address] [place] Magnesium SerPl-mCncon 12-10 Magnesium [Mass/Vol] 2.2 mg/dL Normal 1.7-2.3 [facility] Comment on above: Order Comment: Speci men Type: BLOOD SPECIMENOrdering Facility: [facility] Address: [address] [place], [place] [address] Performed By: #### 2 4323-8, , 2776-06 ####[facility] LABCLIA [id number] [address] [address] [place] NUTRITIONon 12-10-2024 NUTRITION Normal [facility] PTT, ANTICOAGULANT THERAPYon 12-10-2024 aPTT Coag (PPP) [Time] 50.4 s High 23.0-32.4 [facility] Comment on above: Order Comment: Speci men Type: BLOOD SPECIMENOrdering Facility: [facility] Address: [address] [place] [address] Performed By: #### P TTAC ####[facility] LABCLIA [id number] [place] [address] [place] aPTT Coag (PPP) [Time] 29.2 s Normal 23.0-32.4 [facility] Comment on above: Order Comment: Speci men Type: BLOOD SPECIMENOrdering Facility: [facility] Address: [address] [place] [address] Result Comment: Inte rpret with caution. Sample centrifuged greater than 1 hour from collection time. According to Clinical and Laboratory Standards Boss guidelines, results could be falsely decreased due to heparin neutralization by in vitro release of platelet factor 4. Suggest correlation with clinical findings and redraw if indicated. Performed By: #### P TTAC ####[facility] LABCLIA [id number] [place] [address] [place] Phosphate SerPl-mCncon 12-10 Phosphate [Mass/Vol] 4.3 mg/dL Normal 2.7-4.8 [facility] Comment on above: Order Comment: Speci men Type: BLOOD SPECIMENOrdering Facility: [facility] Address: [address] [place] [address] Performed By: #### 2 4323-8, 41375-2, 2777-1 ####[facility] LABCLIA [id number] [place] [address] [place] TYPE + SCREENon 12-10-2024 ABO O Normal [facility] Comment on above: Order Comment: Speci men Type: BLOOD SPECIMENOrdering Facility: [facility] Address: [address] [place] [address] Performed By: #### T SCR ####[facility] B[facility] BANKCLIA [id number] [place] [address] [place] Rh Nom (Bld) Positive Normal [facility] Comment on above: Order Comment: Speci men Type: BLOOD SPECIMENOrdering Facility: [facility] Address: [address] [place] [address] Performed By: #### T SCR ####[facility] BLOOD BANKCLIA [id number] [place] [address] [place] TYPE AND SCREEN EXPIRATION 12/13/2024 23:59 Normal [facility] Comment on above: Order Comment: Speci men Type: BLOOD SPECIMENOrdering Facility: [facility] Address: [address] [place] [address] Performed By: #### T SCR ####[facility] BLOOD BANKCLIA [id number] [address] [place] ALLIED HEALTHon 12-09-2024 ALLIED HEALTH Normal [facility] CBC panel Auto (Bld)on 12-09 Erythrocyte distribution width (RBC) [Ratio] 20.9 % High 11.5-15.0 [facility] Comment on above: Order Comment: Speci men Type: BLOOD SPECIMENOrdering Facility: [facility] Address: [address] [place] [address] Performed By: #### 5 8410-2 ####[facility] LABCLIA [id number] [place] [address] [place] Hematocrit (Bld) [Volume fraction] 28.3 % Low 36.0-46.0 [facility] Comment on above: Order Comment: Speci men Type: BLOOD SPECIMENOrdering Facility: [facility] Address: [address] [place] [address] Performed By: #### 5 8410-2 ####[facility] LABCLIA [id number] [place] [address] [place] Hemoglobin (Bld) [Mass/Vol] 8.9 g/dL Low 11.5-15.5 [facility] Comment on above: Order Comment: Speci men Type: BLOOD SPECIMENOrdering Facility: [facility] Address: [address] [place] [address] Performed By: #### 5 8410-2 ####[facility] [id number] [address] [facility] MCH (RBC) [Entitic mass] 26.5 pg Normal 26.0-34.0 [facility] Comment on above: Order Comment: Speci men Type: BLOOD SPECIMENOrdering Facility: [facility] Address: [address] [place] [address] Performed By: #### 5 8410-2 ####[facility] [id number] [address] [place] MCHC (RBC) [Mass/Vol] 31.4 g/dL Normal 30.5-36.0 [facility] Comment on above: Order Comment: Speci men Type: BLOOD SPECIMENOrdering Facility: [facility] Address: [address] [place] [address] Performed By: #### 5 8410-2 ####[facility] [id number] [place] [address] [place] MCV (RBC) [Entitic vol] 84.2 fL Normal 80.0-100.0 [facility] Comment on above: Order Comment: Speci men Type: BLOOD SPECIMENOrdering Facility: [facility] Address: [address] [place] [address] Performed By: #### 5 8410-2 ####[facility] [id number] [place] [address] [place] Nucleated RBC (Bld) [#/Vol] 10*3/uL Normal <0.01 [facility] Comment on above: Order Comment: Speci men Type: BLOOD SPECIMENOrdering Facility: [facility] Address: [address] [place] [address] Performed By: #### 5 8410-2 ####[facility] LABCLIA [id number] [address] [place] [address] [place] Platelet mean volume (Bld) [Entitic vol] 9.2 fL Normal 9.0-12.7 [facility] Comment on above: Order Comment: Speci men Type: BLOOD SPECIMENOrdering Facility: [facility] Address: [address] [place] [address] Performed By: #### 5 8410-2 ####[facility] LABCLIA [id number] [facility] [address] [place] [address] [place] Platelets (Bld) [#/Vol] 423 10*3/uL High 150-400 [facility] Comment on above: Order Comment: Speci men Type: BLOOD SPECIMENOrdering Facility: [facility] Address: [address] [place] [address] Performed By: #### 5 8410-2 ####[facility] LABCLIA [id number] [address], [place] [address] [place] RBC (Bld) [#/Vol] 3.36 10*6/uL Low 3.90-5.20 [facility] Comment on above: Order Comment: Speci men Type: BLOOD SPECIMENOrdering Facility: [facility] Address: [address] [place] [address] Performed By: #### 5 8410-2 ####[facility] LABCLIA [id number] [address] [place] [address] [place] WBC (Bld) [#/Vol] 8.36 10*3/uL Normal 3.70-11.00 [facility] Comment on above: Order Comment: Speci men Type: BLOOD SPECIMENOrdering Facility: [facility] Address: [address] [place] [address] Performed By: #### 5 8410-2 ####[facility] LABCLIA [id number] [address] [place] [address] [place] [facility] Comprehensive metabolic 2000 panelon 12-09-2024 Albumin [Mass/Vol] 3.2 g/dL Low 3.9-4.9 [facility] Comment on above: Order Comment: Speci men Type: BLOOD SPECIMENOrdering Facility: [facility] Address: [address] [place] [address] Performed By: #### 2 4323-8, 96539-3, 2776- ####[facility] LABCLIA [id number] [place] [id number] [place] ALP [Catalytic activity/Vol] 163 U/L High 34-123 [facility] Comment on above: Order Comment: Speci men Type: BLOOD SPECIMENOrdering Facility: [facility] Address: [address] [place] [address] Performed By: #### 2 4323-8, , 2776- ####[facility] LABCLIA [id number] [place] [address] [place] ALT [Catalytic activity/Vol] 37 U/L Normal 7-38 [facility] Comment on above: Order Comment: Speci men Type: BLOOD SPECIMENOrdering Facility: [facility] Address: [address] [place] [address] Performed By: #### 2 4323-8, , 2776- ####[facility] LABCLIA [id number] [place] [id number] [place] Anion gap [Moles/Vol] 12 mmol/L Normal 8-15 [facility] Comment on above: Order Comment: Speci men Type: BLOOD SPECIMENOrdering Facility: [facility] Address: [address] [place] [address] Performed By: #### 2 4323-8, 42709-0, 2776- ####[facility] LABCLIA [id number] [place] [id number] [place] AST [Catalytic activity/Vol] 31 U/L Normal 13-35 [facility] Comment on above: Order Comment: Speci men Type: BLOOD SPECIMENOrdering Facility: [facility] Address: [address] [place], [place] [address] Performed By: #### 2 4323-8, , 2776-06 ####[facility] LABCLIA [id number] [facility] [place] [id number] [place] Bilirubin [Mass/Vol] 0.5 mg/dL Normal 0.2-1.3 [facility] Comment on above: Order Comment: Speci men Type: BLOOD SPECIMENOrdering Facility: [facility] Address: [address] [place] [address] Performed By: #### 2 4323-8, , 2776-06 ####[facility] LABCLIA [id number] [place] [address] [place] Calcium [Mass/Vol] 9.2 mg/dL Normal 8.5-10.2 [facility] Comment on above: Order Comment: Speci men Type: BLOOD SPECIMENOrdering Facility: [facility] Address: [address] [place], [place] [address] Performed By: #### 2 4323-8, , 2776-06 ####[facility] LABCLIA [id number] [place] [address] [place] Chloride [Moles/Vol] 101 mmol/L Normal 98-107 [facility] Comment on above: Order Comment: Speci men Type: BLOOD SPECIMENOrdering Facility: [facility] Address: [address] [place] [address] Performed By: #### 2 4323-8, , 2776-06 ####[facility] LABCLIA [id number] [facility] [address] [place] [address] [place] CO2 [Moles/Vol] 24 mmol/L Normal 22-30 [facility] Comment on above: Order Comment: Speci men Type: BLOOD SPECIMENOrdering Facility: [facility] Address: [address] [place] [address] Performed By: #### 2 4323-8, , 2776-06 ####[facility] LABCLIA [id number] [address] [address] [place] Creatinine [Mass/Vol] 0.89 mg/dL Normal 0.58-0.96 [facility] Comment on above: Order Comment: Florii men Type: BLOOD SPECIMENOrdering Facility: [facility] Address: [address] [place] [address] Performed By: #### 2 4323-8, , 2776-06 ####[facility] LABIA [id number] [address] [address] [place] Creatinine and Glomerular filtration rate.predicted panel (S/P/Bld) 84 mL/min/1.73m??? Normal >=60 [facility] Comment on above: Order Comment: Dora men Type: BLOOD SPECIMENOrdering Facility: [facility] Address: [address] [place] [address] Result Comment: Zeny mated Glomerular Filtration Rate [...] Performed By: #### 2 4323-8, , 2776-06 ####[facility] LABIA [id number] [address] [address] [place] Glucose [Mass/Vol] 105 mg/dL High 74-99 [facility] Comment on above: Order Comment: Dora finch Type: BLOOD SPECIMENOrdering Facility: [facility] Address: [address] [place], [place] [address] Result Comment: The [place] Diabetes Association (ADA) provides guidance for cutoff [...] Standards of Medical Care in Diabetes 2016, [place] [employer]. Diabetes Care. 2016.39(Suppl 1). Performed By: #### 2 4323-8, , 2776-06 ####[facility] [id number] [place] [address] [place] Potassium [Moles/Vol] 3.9 mmol/L Normal 3.7-5.1 [facility] Comment on above: Order Comment: Speci men Type: BLOOD SPECIMENOrdering Facility: [facility] Address: [address] [place] [address] Performed By: #### 2 4323-8, , 2776-06 ####[facility] [id number] [place] [address] [place] Protein [Mass/Vol] 6.4 g/dL Normal 6.3-8.0 [facility] Comment on above: Order Comment: Speci men Type: BLOOD SPECIMENOrdering Facility: [facility] Address: [address] [place] [address] Performed By: #### 2 4323-8, , 2776-06 ####[facility] [id number] [place] [id number] [place] Sodium [Moles/Vol] 137 mmol/L Normal 136-144 [facility] Comment on above: Order Comment: Speci men Type: BLOOD SPECIMENOrdering Facility: [facility] Address: [address] [place] [address] Performed By: #### 2 4323-8, 33371-3, 2777-1 ####[facility] LABCLIA [id number] [place] [address] [place] Urea nitrogen [Mass/Vol] 17 mg/dL Normal 7-21 [facility] Comment on above: Order Comment: Speci men Type: BLOOD SPECIMENOrdering Facility: [facility] Address: [address] [place] [address] Performed By: #### 2 4323-8, 84623-9, 2776- ####[facility] LABIA [id number] [place] [address] [place] Magnesium SerPl-mCncon 12-09 Magnesium [Mass/Vol] 1.9 mg/dL Normal 1.7-2.3 [facility] Comment on above: Order Comment: Speci men Type: BLOOD SPECIMENOrdering Facility: [facility] Address: [address] [place] [address] Performed By: #### 2 4323-8, 94612-7, 277-1 ####[facility] LABIA [id number] [place] [address] [place] NURSING PROGon 12-09-2024 NURSING PROG Normal [facility] PTT, ANTICOAGULANT THERAPYon 12-09-2024 aPTT Coag (PPP) [Time] 64.5 s High 23.0-32.4 [facility] Comment on above: Order Comment: Speci men Type: BLOOD SPECIMENOrdering Facility: [facility] Address: [address] [place] [address] Performed By: #### P TTA ####[facility] LABIA [id number] [place] [id number] [place] aPTT Coag (PPP) [Time] 44.6 s High 23.0-32.4 [facility] Comment on above: Order Comment: Speci men Type: BLOOD SPECIMENOrdering Facility: [facility] Address: [address] [place] [address] Performed By: #### P TTAC ####[facility] LABIA [id number] [place] [address] [place] aPTT Coag (PPP) [Time] 87.9 s High 23.0-32.4 [facility] Comment on above: Order Comment: Speci men Type: BLOOD SPECIMENOrdering Facility: [facility] Address: [address] [place] [address] Performed By: #### P TTAC ####[facility] LABIA [id number] [place] [address] [place] Phosphate SerPl-mCncon 12-09 Phosphate [Mass/Vol] 4.1 mg/dL Normal 2.7-4.8 [facility] Comment on above: Order Comment: Speci men Type: BLOOD SPECIMENOrdering Facility: [facility] Address: [address] [place] [address] Performed By: #### 2 4323-8, 87598-3, 2777-1 ####[facility] [id number] [address] [place] BRIEF OP NOTon 12-08-2024 BRIEF OP NOT Normal [facility] CBC panel Auto (Bld)on 12-08 Erythrocyte distribution width (RBC) [Ratio] 20.5 % High 11.5-15.0 [facility] Comment on above: Order Comment: Speci men Type: BLOOD SPECIMENOrdering Facility: [facility] Address: [address] [place] [address] Performed By: #### 5 8410-2 ####[facility] LABIA [id number] [address] [place] Hematocrit (Bld) [Volume fraction] 27.6 % Low 36.0-46.0 [facility] Comment on above: Order Comment: Speci men Type: BLOOD SPECIMENOrdering Facility: [facility] Address: [address] [place] [address] Performed By: #### 5 8410-2 ####[facility] LABCLIA [id number] [place] [address] [place] Hemoglobin (Bld) [Mass/Vol] 8.4 g/dL Low 11.5-15.5 [facility] Comment on above: Order Comment: Speci men Type: BLOOD SPECIMENOrdering Facility: [facility] Address: [address] [place] [address] Performed By: #### 5 8410-2 ####[facility] LABIA [id number] [place] [address] [place] MCH (RBC) [Entitic mass] 25.9 pg Low 26.0-34.0 [facility] Comment on above: Order Comment: Speci men Type: BLOOD SPECIMENOrdering Facility: [facility] Address: [address] [place] [address] Performed By: #### 5 8410-2 ####[facility] LABIA [id number] [place] [address] [place] MCHC (RBC) [Mass/Vol] 30.4 g/dL Low 30.5-36.0 [facility] Comment on above: Order Comment: Speci men Type: BLOOD SPECIMENOrdering Facility: [facility] Address: [address] [place] [address] Performed By: #### 5 8410-2 ####[facility] LABIA [id number] [place] [address] [place] MCV (RBC) [Entitic vol] 85.2 fL Normal 80.0-100.0 [facility] Comment on above: Order Comment: Speci men Type: BLOOD SPECIMENOrdering Facility: [facility] Address: [address] [place] [address] Performed By: #### 5 8410-2 ####[facility] LABCLIA [id number] [address] [address] [place] Nucleated RBC (Bld) [#/Vol] 0.02 10*3/uL High <0.01 [facility] Comment on above: Order Comment: Speci men Type: BLOOD SPECIMENOrdering Facility: [facility] Address: [address] [place] [address] Performed By: #### 5 8410-2 ####[facility] LABIA [id number] [address], [place] [address] [place] Platelet mean volume (Bld) [Entitic vol] 10.3 fL Normal 9.0-12.7 [facility] Comment on above: Order Comment: Speci men Type: BLOOD SPECIMENOrdering Facility: [facility] Address: [address] [place] [address] Performed By: #### 5 8410-2 ####[facility] LABIA [id number] [place] [address] [place] Platelets (Bld) [#/Vol] 423 10*3/uL High 150-400 [facility] Comment on above: Order Comment: Speci men Type: BLOOD SPECIMENOrdering Facility: [facility] Address: [address] [place] [address] Performed By: #### 5 8410-2 ####[facility] LABIA [id number] [place] [address] [place] RBC (Bld) [#/Vol] 3.24 10*6/uL Low 3.90-5.20 [facility] Comment on above: Order Comment: Speci men Type: BLOOD SPECIMENOrdering Facility: [facility] Address: [address] [place] [address] Performed By: #### 5 8410-2 ####[facility] LABIA [id number] [address], [facility]95 [place] WBC (Bld) [#/Vol] 7.37 10*3/uL Normal 3.70-11.00 [facility] Comment on above: Order Comment: Speci men Type: BLOOD SPECIMENOrdering Facility: [facility] Address: [address] [place] [address] Performed By: #### 5 8410-2 ####[facility] LABCLIA [id number] [place] [address] [place] CONSULT PROGon 12-08-2024 CONSULT PROG Normal [facility] CONSULT PROG Normal [facility] Comprehensive metabolic 2000 panelon 12-08-2024 Albumin [Mass/Vol] 3.2 g/dL Low 3.9-4.9 [facility] Comment on above: Order Comment: Speci men Type: BLOOD SPECIMENOrdering Facility: [facility] Address: [address] [place] [address] Performed By: #### 2 4323-8, , 2776-06 ####[facility] LABCLIA [id number] [address], [facility]95 [place] ALP [Catalytic activity/Vol] 163 U/L High 34-123 [facility] Comment on above: Order Comment: Speci men Type: BLOOD SPECIMENOrdering Facility: [facility] Address: [address] [place] [address] Performed By: #### 2 4323-8, , 2776- ####[facility] LABCLIA [id number] [place] [address] [place] ALT [Catalytic activity/Vol] 41 U/L High 7-38 [facility] Comment on above: Order Comment: Speci men Type: BLOOD SPECIMENOrdering Facility: [facility] Address: [address] [place] [address] Performed By: #### 2 4323-8, 08117-3, 2777- ####[facility] LABCLIA [id number] [place] [address] [place] Anion gap [Moles/Vol] 14 mmol/L Normal 8-15 [facility] Comment on above: Order Comment: Speci men Type: BLOOD SPECIMENOrdering Facility: [facility] Address: [address] [place] [address] Performed By: #### 2 4323-8, 70794-2, 2776-06 ####[facility] LABCLIA [id number] [place] [address] [place] AST [Catalytic activity/Vol] 30 U/L Normal 13-35 [facility] Comment on above: Order Comment: Speci men Type: BLOOD SPECIMENOrdering Facility: [facility] Address: [address] [place] [address] Performed By: #### 2 4323-8, , 2776-06 ####[facility] LABCLIA [id number] [place] [address] [place] Bilirubin [Mass/Vol] 0.4 mg/dL Normal 0.2-1.3 [facility] Comment on above: Order Comment: Speci men Type: BLOOD SPECIMENOrdering Facility: [facility] Address: [address] [place] [address] Performed By: #### 2 4323-8, , 2776-06 ####[facility] LABCLIA [id number] [place] [address] [place] Calcium [Mass/Vol] 9.3 mg/dL Normal 8.5-10.2 [facility] Comment on above: Order Comment: Speci men Type: BLOOD SPECIMENOrdering Facility: [facility] Address: [address] [place] [address] Performed By: #### 2 4323-8, , 2776-06 ####[facility] LABCLIA [id number] [place] [address] [place] Chloride [Moles/Vol] 101 mmol/L Normal 98-107 [facility] Comment on above: Order Comment: Speci men Type: BLOOD SPECIMENOrdering Facility: [facility] Address: [address] [place], [place] [address] Performed By: #### 2 4323-8, , 2776-06 ####[facility] LABCLIA [id number] [place] [address] [place] CO2 [Moles/Vol] 22 mmol/L Normal 22-30 [facility] Comment on above: Order Comment: Speci men Type: BLOOD SPECIMENOrdering Facility: [facility] Address: [address] [place] [address] Performed By: #### 2 4323-8, , 2776-06 ####[facility] LABIA [id number] [place] [address] [place] Creatinine [Mass/Vol] 0.91 mg/dL Normal 0.58-0.96 [facility] Comment on above: Order Comment: Speci men Type: BLOOD SPECIMENOrdering Facility: [facility] Address: [address] [place] [address] Performed By: #### 2 4323-8, , 2776-06 ####[facility] LABIA [id number] [place] [id number] [place] Creatinine and Glomerular filtration rate.predicted panel (S/P/Bld) 81 mL/min/1.73m??? Normal >=60 [facility] Comment on above: Order Comment: Speci men Type: BLOOD SPECIMENOrdering Facility: [facility] Address: [address] [place] [address] Result Comment: Zeny mated Glomerular Filtration Rate [...] Performed By: #### 2 4323-8, , 2776-06 ####[facility] LABCLIA [id number] [address] [address] [place] Glucose [Mass/Vol] 112 mg/dL High 74-99 [facility] Comment on above: Order Comment: Speci men Type: BLOOD SPECIMENOrdering Facility: [facility] Address: [address] [place] [address] Result Comment: The [place] Diabetes Association (ADA) provides guidance for cutoff [...] Standards of Medical Care in Diabetes 2016, [place] [employer]. Diabetes Care. 2016.39(Suppl 1). Performed By: #### 2 4323-8, , 2776-06 ####[facility] LABCLIA [id number] [address] [address] [place] Potassium [Moles/Vol] 4.0 mmol/L Normal 3.7-5.1 [facility] Comment on above: Order Comment: Speci men Type: BLOOD SPECIMENOrdering Facility: [facility] Address: [address] [place] [id number] Performed By: #### 2 4323-8, , 2776-06 ####[facility] LABIA [id number] [address] [address] [place] Protein [Mass/Vol] 6.8 g/dL Normal 6.3-8.0 [facility] Comment on above: Order Comment: Speci men Type: BLOOD SPECIMENOrdering Facility: [facility] Address: [address] [place] [address] Performed By: #### 2 4323-8, 82018-6, 1 ####[facility] LABCLIA [id number] [place] [address] [place] Sodium [Moles/Vol] 137 mmol/L Normal 136-144 [facility] Comment on above: Order Comment: Speci men Type: BLOOD SPECIMENOrdering Facility: [facility] Address: [address] [place] [address] Performed By: #### 2 4323-8, , 2776-06 ####[facility] LABIA [id number] [place] [address] [place] Urea nitrogen [Mass/Vol] 14 mg/dL Normal 7-21 [facility] Comment on above: Order Comment: Florii men Type: BLOOD SPECIMENOrdering Facility: [facility] Address: [address] [place] [address] Performed By: #### 2 4323-8, , 2776-06 ####[facility] LABIA [id number] [place] [address] [place] Fact Xa PPP-aCncon 5 Coagulation factor X activated act Coag Qn (PPP) 0.76 IU/mL High <0.10 [facility] Comment on above: Order Comment: Dora finch Type: BLOOD SPECIMENOrdering Facility: [facility] Address: [address] [place] [address] Result Comment: The recommended therapeutic range for treatment of venous and arterial thrombosis with intravenous unfractionated heparin is an anti Xa activity level of 0.3 to 0.7 IU/mL. In patients with concomitant therapy with thrombolytic agents and/or platelet glycoprotein IIb/IIIa antagonists, the recommended therapeutic range is an anti Xa activity level of 0.2 to 0.5 IU/mL. Performed By: #### 3 217-7 ####[facility] LABCLIA [id number] [place] [address] [place] Coagulation factor X activated act Coag Qn (PPP) 0.55 IU/mL High <0.10 [facility] Comment on above: Order Comment: Dora finch Type: BLOOD SPECIMENOrdering Facility: [facility] Address: [address] [place] [address] Result Comment: The recommended therapeutic range for treatment of venous and arterial thrombosis with intravenous unfractionated heparin is an anti Xa activity level of 0.3 to 0.7 IU/mL. In patients with concomitant therapy with thrombolytic agents and/or platelet glycoprotein IIb/IIIa antagonists, the recommended therapeutic range is an anti Xa activity level of 0.2 to 0.5 IU/mL. Performed By: #### P TTAC, 3217-7 ####[facility] LABIA [id number] [place] [address] [place] IR PICC INSERT PHYSICIANon 0 12-08-2024 IR PICC INSERT PHYSICIAN Normal [facility] Magnesium SerPl-mCncon 12-08 Magnesium [Mass/Vol] 1.9 mg/dL Normal 1.7-2.3 [facility] Comment on above: Order Comment: Dora finch Type: BLOOD SPECIMENOrdering Facility: [facility] Address: [address] [place] [address] Performed By: #### 2 4323-8, 64907-4, 2777-1 ####[facility] LABIA [id number] [place] [address] [place] PTT, ANTICOAGULANT THERAPYon 12-08-2024 aPTT Coag (PPP) [Time] 37.0 s High 23.0-32.4 [facility] Comment on above: Order Comment: Dora finch Type: BLOOD SPECIMENOrdering Facility: [facility] Address: [address] [place] [address] Performed By: #### P TTAC ####[facility] LABIA [id number] [place] [address] [place] aPTT Coag (PPP) [Time] 94.6 s High 23.0-32.4 [facility] Comment on above: Order Comment: Speci men Type: BLOOD SPECIMENOrdering Facility: [facility] Address: [address] [place] [address] Performed By: #### P TTAC ####[facility] LABCLIA [id number] [place] [id number] [place] aPTT Coag (PPP) [Time] 88.0 s High 23.0-32.4 [facility] Comment on above: Order Comment: Speci men Type: BLOOD SPECIMENOrdering Facility: [facility] Address: [address] [place] [address] Performed By: #### P TTAC ####[facility] LABCLIA [id number] [address] [place] [facility] aPTT Coag (PPP) [Time] 56.3 s High 23.0-32.4 [facility] Comment on above: Order Comment: Speci men Type: BLOOD SPECIMENOrdering Facility: [facility] Address: [address] [place] [address] Performed By: #### P TTAC, 3217-7 ####[facility] LABIA [id number] [place] [id number] [place] Phosphate SerPl-mCncon 12-08 Phosphate [Mass/Vol] 4.5 mg/dL Normal 2.7-4.8 [facility] Comment on above: Order Comment: Speci men Type: BLOOD SPECIMENOrdering Facility: [facility] Address: [address] [place] [address] Performed By: #### 2 4323-8, 45803-1, 2777-1 ####[facility] LABCLIA [id number] [place] [id number] [place] ALLIED HEALTHon 12-07-2024 ALLIED HEALTH Normal [facility] CBC panel Auto (Bld)on 12-07 Erythrocyte distribution width (RBC) [Ratio] 20.2 % High 11.5-15.0 [facility] Comment on above: Order Comment: Speci men Type: BLOOD SPECIMENOrdering Facility: [facility] Address: [address] [place] [address] Performed By: #### 5 8410-2 ####[facility] LABIA [id number] [place] [address] [place] Hematocrit (Bld) [Volume fraction] 28.3 % Low 36.0-46.0 [facility] Comment on above: Order Comment: Speci men Type: BLOOD SPECIMENOrdering Facility: [facility] Address: [address] [place] [address] Performed By: #### 5 8410-2 ####[facility] LABIA [id number] [address] [place] Hemoglobin (Bld) [Mass/Vol] 9.0 g/dL Low 11.5-15.5 [facility] Comment on above: Order Comment: Speci men Type: BLOOD SPECIMENOrdering Facility: [facility] Address: [address] [place] [address] Performed By: #### 5 8410-2 ####[facility] LABIA [id number] [place] [address] [place] MCH (RBC) [Entitic mass] 26.5 pg Normal 26.0-34.0 [facility] Comment on above: Order Comment: Speci men Type: BLOOD SPECIMENOrdering Facility: [facility] Address: [address] [place] [address] Performed By: #### 5 8410-2 ####[facility] LABIA [id number] [place] [id number] [place] MCHC (RBC) [Mass/Vol] 31.8 g/dL Normal 30.5-36.0 [facility] Comment on above: Order Comment: Speci men Type: BLOOD SPECIMENOrdering Facility: [facility] Address: [address] [place] [address] Performed By: #### 5 8410-2 ####[facility] [id number] [place] [address] [place] MCV (RBC) [Entitic vol] 83.2 fL Normal 80.0-100.0 [facility] Comment on above: Order Comment: Speci men Type: BLOOD SPECIMENOrdering Facility: [facility] Address: [address] [place] [address] Performed By: #### 5 8410-2 ####[facility] [id number] [place] [address] [place] Nucleated RBC (Bld) [#/Vol] 10*3/uL Normal <0.01 [facility] Comment on above: Order Comment: Speci men Type: BLOOD SPECIMENOrdering Facility: [facility] Address: [address] [place] [address] Performed By: #### 5 8410-2 ####[facility] [id number] [place] [address] [place] Platelet mean volume (Bld) [Entitic vol] 10.0 fL Normal 9.0-12.7 [facility] Comment on above: Order Comment: Speci men Type: BLOOD SPECIMENOrdering Facility: [facility] Address: [address] [place] [address] Performed By: #### 5 8410-2 ####[facility] LABIA [id number] [place] [address] [place] Platelets (Bld) [#/Vol] 414 10*3/uL High 150-400 [facility] Comment on above: Order Comment: Speci men Type: BLOOD SPECIMENOrdering Facility: [facility] Address: [address] [place] [address] Performed By: #### 5 8410-2 ####[facility] LABCLIA [id number] [address] [address] [place] RBC (Bld) [#/Vol] 3.40 10*6/uL Low 3.90-5.20 [facility] Comment on above: Order Comment: Speci men Type: BLOOD SPECIMENOrdering Facility: [facility] Address: [address] [place] [address] Performed By: #### 5 8410-2 ####[facility] LABIA [id number] [address] [address] [place] WBC (Bld) [#/Vol] 7.16 10*3/uL Normal 3.70-11.00 [facility] Comment on above: Order Comment: Speci men Type: BLOOD SPECIMENOrdering Facility: [facility] Address: [address] [place] [address] Performed By: #### 5 8410-2 ####[facility] LABIA [id number] [place] [address] [place] CONSULT PROGon 12-07-2024 CONSULT PROG Normal [facility] Comprehensive metabolic 2000 panelon 12-07-2024 Albumin [Mass/Vol] 3.3 g/dL Low 3.9-4.9 [facility] Comment on above: Order Comment: Speci men Type: BLOOD SPECIMENOrdering Facility: [facility] Address: [address] [place] [address] Performed By: #### 2 4323-8, 21284-4, 27712-25 ####[facility] LABIA [id number] [place] [address] [place] ALP [Catalytic activity/Vol] 185 U/L High 34-123 [facility] Comment on above: Order Comment: Speci men Type: BLOOD SPECIMENOrdering Facility: [facility] Address: [address] [place], [place] [address] Performed By: #### 2 4323-8, , 2776-06 ####[facility] LABCLIA [id number] [facility] [address] [address] [place] ALT [Catalytic activity/Vol] 53 U/L High 7-38 [facility] Comment on above: Order Comment: Speci men Type: BLOOD SPECIMENOrdering Facility: [facility] Address: [address] [place] [address] Performed By: #### 2 432-8, , 2776-06 ####[facility] LABCLIA [id number] [address] [address] [place] Anion gap [Moles/Vol] 16 mmol/L High 8-15 [facility] Comment on above: Order Comment: Speci men Type: BLOOD SPECIMENOrdering Facility: [facility] Address: [address] [place] [address] Performed By: #### 2 8, , 2776-06 ####[facility] LABCLIA [id number] [address] [address] [place] AST [Catalytic activity/Vol] 40 U/L High 13-35 [facility] Comment on above: Order Comment: Speci men Type: BLOOD SPECIMENOrdering Facility: [facility] Address: [address] [place] [address] Performed By: #### 2 4323-8, , 2776-06 ####[facility] LABCLIA [id number] [address] [address] [place] Bilirubin [Mass/Vol] 0.6 mg/dL Normal 0.2-1.3 [facility] Comment on above: Order Comment: Speci men Type: BLOOD SPECIMENOrdering Facility: [facility] Address: [address] [place], [place] [address] Performed By: #### 2 4323-8, , 2776-06 ####[facility] LABCLIA [id number] [address] [place] [address] [place] Calcium [Mass/Vol] 9.0 mg/dL Normal 8.5-10.2 [facility] Comment on above: Order Comment: Speci men Type: BLOOD SPECIMENOrdering Facility: [facility] Address: [address] [place] [address] Performed By: #### 2 4323-8, , 2776-06 ####[facility] LABCLIA [id number] [place] [address] [place] Chloride [Moles/Vol] 101 mmol/L Normal 98-107 [facility] Comment on above: Order Comment: Speci men Type: BLOOD SPECIMENOrdering Facility: [facility] Address: [address] [place] [address] Performed By: #### 2 4323-8, , 2776-06 ####[facility] LABCLIA [id number] [place] [address] [place] CO2 [Moles/Vol] 21 mmol/L Low 22-30 [facility] Comment on above: Order Comment: Speci men Type: BLOOD SPECIMENOrdering Facility: [facility] Address: [address] [place] [address] Performed By: #### 2 4323-8, , 2776-06 ####[facility] LABCLIA [id number] [place] [address] [place] Creatinine [Mass/Vol] 1.04 mg/dL High 0.58-0.96 [facility] Comment on above: Order Comment: Speci men Type: BLOOD SPECIMENOrdering Facility: [facility] Address: [address] [place] [address] Performed By: #### 2 4323-8, , 2776-06 ####[facility] LABCLIA [id number] [address] [address] [place] Creatinine and Glomerular filtration rate.predicted panel (S/P/Bld) 69 mL/min/1.73m??? Normal >=60 [facility] Comment on above: Order Comment: Dora finch Type: BLOOD SPECIMENOrdering Facility: [facility] Address: [address] [place] [address] Result Comment: Zeny mated Glomerular Filtration Rate [...] Performed By: #### 2 4323-8, , 2776-06 ####[facility] LABIA [id number] [place] [address] [place] Glucose [Mass/Vol] 178 mg/dL High 74-99 [facility] Comment on above: Order Comment: Dora finch Type: BLOOD SPECIMENOrdering Facility: [facility] Address: [address] [place] [address] Result Comment: The [place] Diabetes Association (ADA) provides guidance for cutoff [...] Standards of Medical Care in Diabetes 2016, [place] [employer]. Diabetes Care. 2016.39(Suppl 1). Performed By: #### 2 4323-8, 64194-2, 2776- ####[facility] LABIA [id number] [address] [address] [place] Potassium [Moles/Vol] 3.3 mmol/L Low 3.7-5.1 [facility] Comment on above: Order Comment: Speci men Type: BLOOD SPECIMENOrdering Facility: [facility] Address: [address] [place] [address] Performed By: #### 2 4323-8, , 2776-06 ####[facility] LABCLIA [id number] [facility] [place] [id number] [place] Protein [Mass/Vol] 7.0 g/dL Normal 6.3-8.0 [facility] Comment on above: Order Comment: Speci men Type: BLOOD SPECIMENOrdering Facility: [facility] Address: [address] [place] [address] Performed By: #### 2 4323-8, , 2776-06 ####[facility] LABCLIA [id number] [place] [address] [place] Sodium [Moles/Vol] 138 mmol/L Normal 136-144 [facility] Comment on above: Order Comment: Speci men Type: BLOOD SPECIMENOrdering Facility: [facility] Address: [address] [place] [address] Performed By: #### 2 4323-8, , 2776-06 ####[facility] LABCLIA [id number] [place] [address] [place] Urea nitrogen [Mass/Vol] 11 mg/dL Normal 7-21 [facility] Comment on above: Order Comment: Speci men Type: BLOOD SPECIMENOrdering Facility: [facility] Address: [address] [place] [address] Performed By: #### 2 4323-8, , 2776-06 ####[facility] LABCLIA [id number] [address] [address] [place] Fact Xa PPP-aCncon 5 Coagulation factor X activated act Coag Qn (PPP) 0.31 IU/mL High <0.10 [facility] Comment on above: Order Comment: Speci men Type: BLOOD SPECIMENOrdering Facility: [facility] Address: [address] [place] [address] Result Comment: The recommended therapeutic range for treatment of venous and arterial thrombosis with intravenous unfractionated heparin is an anti Xa activity level of 0.3 to 0.7 IU/mL. In patients with concomitant therapy with thrombolytic agents and/or platelet glycoprotein IIb/IIIa antagonists, the recommended therapeutic range is an anti Xa activity level of 0.2 to 0.5 IU/mL. Performed By: #### 3 217-7 ####[facility] LABIA [id number] [place] [address] [place] Magnesium SerPl-mCncon 12-07 Magnesium [Mass/Vol] 2.0 mg/dL Normal 1.7-2.3 [facility] Comment on above: Order Comment: Speci men Type: BLOOD SPECIMENOrdering Facility: [facility] Address: [address] [place] [address] Performed By: #### 2 4323-8, 86044-9, 2777-1 ####[facility] LABIA [id number] [place] [address] [place] NUTRITIONon 12-07-2024 NUTRITION Normal [facility] PTT, ANTICOAGULANT THERAPYon 12-07-2024 aPTT Coag (PPP) [Time] 47.4 s High 23.0-32.4 [facility] Comment on above: Order Comment: Speci men Type: BLOOD SPECIMENOrdering Facility: [facility] Address: [address] [place] [address] Performed By: #### P TTAC ####[facility] [id number] [address] [place] aPTT Coag (PPP) [Time] 41.6 s High 23.0-32.4 [facility] Comment on above: Order Comment: Speci men Type: BLOOD SPECIMENOrdering Facility: [facility] Address: [address] [place] [address] Result Comment: Inte rpret with caution. Sample centrifuged greater than 1 hour from collection time. According to Clinical and Laboratory Standards Boss guidelines, results could be falsely decreased due to heparin neutralization by in vitro release of platelet factor 4. Suggest correlation with clinical findings and redraw if indicated. Performed By: #### P TTAC ####[facility] LABCLIA [id number] [place] [address] [place] Phosphate SerPl-mCncon 12-07 Phosphate [Mass/Vol] 4.5 mg/dL Normal 2.7-4.8 [facility] Comment on above: Order Comment: Speci men Type: BLOOD SPECIMENOrdering Facility: [facility] Address: [address] [place] [address] Performed By: #### 2 4323-8, 16153-3, 2777-1 ####[facility] LABCLIA [id number] [place] [id number] [place] ALLIED HEALTHon 12-06-2024 ALLIED HEALTH Normal [facility] ALLIED HEALTH Normal [facility] ANES POSTPROC EVALon 025 ANES POSTPROC EVAL Normal [facility] ANES PRE-OPon 12-06-2024 ANES PRE-OP Normal [facility] CASE MANAGEMon 12-06-2024 CASE MANAGEM Normal [facility] CBC panel Auto (Bld)on 12-06 Erythrocyte distribution width (RBC) [Ratio] 19.8 % High 11.5-15.0 [facility] Comment on above: Order Comment: Speci men Type: BLOOD SPECIMENOrdering Facility: [facility] Address: [address] [place] [address] Performed By: #### 5 8410-2 ####[facility] LABCLIA [id number] [place] [id number] [place] Hematocrit (Bld) [Volume fraction] 19.8 % Low 36.0-46.0 [facility] Comment on above: Order Comment: Speci men Type: BLOOD SPECIMENOrdering Facility: [facility] Address: [address] [place] [address] Performed By: #### 5 8410-2 ####[facility] LABIA [id number] [place] [address] [place] Hemoglobin (Bld) [Mass/Vol] 6.3 g/dL Low 11.5-15.5 [facility] Comment on above: Order Comment: Speci men Type: BLOOD SPECIMENOrdering Facility: [facility] Address: [address] [place] [address] Performed By: #### 5 8410-2 ####[facility] [id number] [place] [address] [place] MCH (RBC) [Entitic mass] 26.1 pg Normal 26.0-34.0 [facility] Comment on above: Order Comment: Speci men Type: BLOOD SPECIMENOrdering Facility: [facility] Address: [address] [place] [address] Performed By: #### 5 8410-2 ####[facility] [id number] [address] [place] MCHC (RBC) [Mass/Vol] 31.8 g/dL Normal 30.5-36.0 [facility] Comment on above: Order Comment: Speci men Type: BLOOD SPECIMENOrdering Facility: [facility] Address: [address] [place] [address] Performed By: #### 5 8410-2 ####[facility] [id number] [place] [address] [place] MCV (RBC) [Entitic vol] 82.2 fL Normal 80.0-100.0 [facility] Comment on above: Order Comment: Speci men Type: BLOOD SPECIMENOrdering Facility: [facility] Address: [address] [place] [address] Performed By: #### 5 8410-2 ####[facility] LABCLIA [id number] [address] [place] [address] [place] Nucleated RBC (Bld) [#/Vol] 10*3/uL Normal <0.01 [facility] Comment on above: Order Comment: Speci men Type: BLOOD SPECIMENOrdering Facility: [facility] Address: [address] [place] [address] Performed By: #### 5 8410-2 ####[facility] LABIA [id number] [address], [facility]95 [place] Platelet mean volume (Bld) [Entitic vol] 8.9 fL Low 9.0-12.7 [facility] Comment on above: Order Comment: Speci men Type: BLOOD SPECIMENOrdering Facility: [facility] Address: [address] [place] [address] Performed By: #### 5 8410-2 ####[facility] LABIA [id number] [place] [address] [place] Platelets (Bld) [#/Vol] 496 10*3/uL High 150-400 [facility] Comment on above: Order Comment: Speci men Type: BLOOD SPECIMENOrdering Facility: [facility] Address: [address] [place] [address] Performed By: #### 5 8410-2 ####[facility] LABIA [id number] [place] [address] [place] RBC (Bld) [#/Vol] 2.41 10*6/uL Low 3.90-5.20 [facility] Comment on above: Order Comment: Speci men Type: BLOOD SPECIMENOrdering Facility: [facility] Address: [address] [place] [address] Performed By: #### 5 8410-2 ####[facility] LABIA [id number] [place] [id number] [place] WBC (Bld) [#/Vol] 8.40 10*3/uL Normal 3.70-11.00 [facility] Comment on above: Order Comment: Speci men Type: BLOOD SPECIMENOrdering Facility: [facility] Address: [address] [place] [address] Performed By: #### 5 8410-2 ####[facility] LABCLIA [id number] [place] [address] [place] Erythrocyte distribution width (RBC) [Ratio] 19.0 % High 11.5-15.0 [facility] Comment on above: Order Comment: Speci men Type: BLOOD SPECIMENOrdering Facility: [facility] Address: [address] [place] [address] Performed By: #### 5 8410-2 ####[facility] LABCLIA [id number] [address] [place] Hematocrit (Bld) [Volume fraction] 29.1 % Low 36.0-46.0 [facility] Comment on above: Order Comment: Speci men Type: BLOOD SPECIMENOrdering Facility: [facility] Address: [address] [place] [address] Performed By: #### 5 8410-2 ####[facility] LABCLIA [id number] [place] [address] [place] Hemoglobin (Bld) [Mass/Vol] 9.1 g/dL Low 11.5-15.5 [facility] Comment on above: Order Comment: Speci men Type: BLOOD SPECIMENOrdering Facility: [facility] Address: [address] [place] [address] Performed By: #### 5 8410-2 ####[facility] LABCLIA [id number] [place] [id number] [place] MCH (RBC) [Entitic mass] 25.7 pg Low 26.0-34.0 [facility] Comment on above: Order Comment: Speci men Type: BLOOD SPECIMENOrdering Facility: [facility] Address: [address] [place] [address] Performed By: #### 5 8410-2 ####[facility] [id number] [address] [place] MCHC (RBC) [Mass/Vol] 31.3 g/dL Normal 30.5-36.0 [facility] Comment on above: Order Comment: Speci men Type: BLOOD SPECIMENOrdering Facility: [facility] Address: [address] [place] [address] Performed By: #### 5 8410-2 ####[facility] [id number] [place] [address] [place] MCV (RBC) [Entitic vol] 82.2 fL Normal 80.0-100.0 [facility] Comment on above: Order Comment: Speci men Type: BLOOD SPECIMENOrdering Facility: [facility] Address: [address] [place] [address] Performed By: #### 5 8410-2 ####[facility] [id number] [place] [address] [place] Nucleated RBC (Bld) [#/Vol] 10*3/uL Normal <0.01 [facility] Comment on above: Order Comment: Speci men Type: BLOOD SPECIMENOrdering Facility: [facility] Address: [address] [place] [address] Performed By: #### 5 8410-2 ####[facility] [id number] [place] [address] [place] Platelet mean volume (Bld) [Entitic vol] 9.3 fL Normal 9.0-12.7 [facility] Comment on above: Order Comment: Speci men Type: BLOOD SPECIMENOrdering Facility: [facility] Address: [address] [place] [address] Performed By: #### 5 8410-2 ####[facility] LABCLIA [id number] [place] [address] [place] Platelets (Bld) [#/Vol] 474 10*3/uL High 150-400 [facility] Comment on above: Order Comment: Speci men Type: BLOOD SPECIMENOrdering Facility: [facility] Address: [address] [place] [address] Performed By: #### 5 8410-2 ####[facility] LABIA [id number] [place] [address] [place] RBC (Bld) [#/Vol] 3.54 10*6/uL Low 3.90-5.20 [facility] Comment on above: Order Comment: Speci men Type: BLOOD SPECIMENOrdering Facility: [facility] Address: [address] [place] [address] Performed By: #### 5 8410-2 ####[facility] [id number] [place] [address] [place] WBC (Bld) [#/Vol] 8.80 10*3/uL Normal 3.70-11.00 [facility] Comment on above: Order Comment: Speci men Type: BLOOD SPECIMENOrdering Facility: [facility] Address: [address] [place] [address] Performed By: #### 5 8410-2 ####[facility] LABIA [id number] [place] [address] [place] CK SerPl-cCncon 12-06-2024 CK [Catalytic activity/Vol] 9 U/L Low 42-196 [facility] Comment on above: Order Comment: Speci men Type: BLOOD SPECIMENOrdering Facility: [facility] Address: [address] [place] [address] Performed By: #### 2 157-6, 70253-1, 18965-5, 2777-1 ####[facility] LABIA [id number] [address] [address] [place] CONSULT PROGon 12-06-2024 CONSULT PROG Normal [facility] Comprehensive metabolic 2000 panelon 12-06-2024 Albumin [Mass/Vol] 3.3 g/dL Low 3.9-4.9 [facility] Comment on above: Order Comment: Speci men Type: BLOOD SPECIMENOrdering Facility: [facility] Address: [address] [place] [address] Performed By: #### 2 157-6, 50196-4, 26352-5, 2776- ####[facility] LABCLIA [id number] [place] [id number] [place] ALP [Catalytic activity/Vol] 191 U/L High 34-123 [facility] Comment on above: Order Comment: Speci men Type: BLOOD SPECIMENOrdering Facility: [facility] Address: [address] [place] [address] Performed By: #### 2 157-6, 34035-6, 67921-8, 2776- ####[facility] [facility] [id number] [place] [id number] [place] ALT [Catalytic activity/Vol] 44 U/L High 7-38 [facility] Comment on above: Order Comment: Speci men Type: BLOOD SPECIMENOrdering Facility: [facility] Address: [address] [place] [address] Performed By: #### 2 157-6, 24574-1, 65399-4, 2776- ####[facility] LABIA [id number] [address] [address] [place] Anion gap [Moles/Vol] 12 mmol/L Normal 8-15 [facility] Comment on above: Order Comment: Speci men Type: BLOOD SPECIMENOrdering Facility: [facility] Address: [address] [place] [address] Performed By: #### 2 157-6, 98857-7, 81608-1, 2777-1 ####[facility] LABCLIA [id number] [address] [address] [place] AST [Catalytic activity/Vol] 36 U/L High 13-35 [facility] Comment on above: Order Comment: Speci men Type: BLOOD SPECIMENOrdering Facility: [facility] Address: [address] [place] [address] Performed By: #### 2 157-6, 54546-6, , 2776-06 ####[facility] LABCLIA [id number] [address] [address] [place] Bilirubin [Mass/Vol] 0.7 mg/dL Normal 0.2-1.3 [facility] Comment on above: Order Comment: Speci men Type: BLOOD SPECIMENOrdering Facility: [facility] Address: [address] [place] [address] Performed By: #### 2 157-6, 28037-1, , 2776-06 ####[facility] LABIA [id number] [address] [address] [place] Calcium [Mass/Vol] 8.8 mg/dL Normal 8.5-10.2 [facility] Comment on above: Order Comment: Speci men Type: BLOOD SPECIMENOrdering Facility: [facility] Address: [address] [place] [address] Performed By: #### 2 157-6, 50522-3, , 2776-06 ####[facility] LABCLIA [id number] [address] [address] [place] Chloride [Moles/Vol] 102 mmol/L Normal 98-107 [facility] Comment on above: Order Comment: Speci men Type: BLOOD SPECIMENOrdering Facility: [facility] Address: [address] [place] [address] Performed By: #### 2 157-6, 64492-1, 73993-8, 2777-1 ####[facility] LABIA [id number] [address] [address] [place] CO2 [Moles/Vol] 22 mmol/L Normal 22-30 [facility] Comment on above: Order Comment: Speci men Type: BLOOD SPECIMENOrdering Facility: [facility] Address: [address] [place] [address] Performed By: #### 2 157-6, 45670-3, 89833-9, 2776- ####[facility] LABIA [id number] [address] [address] [place] Creatinine [Mass/Vol] 0.95 mg/dL Normal 0.58-0.96 [facility] Comment on above: Order Comment: Speci men Type: BLOOD SPECIMENOrdering Facility: [facility] Address: [address] [place] [address] Performed By: #### 2 157-6, 47368-5, , 2776- ####[facility] [id number] [address] [address] [place] Creatinine and Glomerular filtration rate.predicted panel (S/P/Bld) 77 mL/min/1.73m??? Normal >=60 [facility] Comment on above: Order Comment: Speci men Type: BLOOD SPECIMENOrdering Facility: [facility] Address: [address] [place] [address] Result Comment: Zeny mated Glomerular Filtration Rate [...] actual GFR. Performed By: #### 2 157-6, 67152-1, 89554-7, 2777-1 ####[facility] LABIA [id number] [address] [address] [place] Glucose [Mass/Vol] 136 mg/dL High 74-99 [facility] Comment on above: Order Comment: Speci men Type: BLOOD SPECIMENOrdering Facility: [facility] Address: [address] [place] [address] Result Comment: The [place] Diabetes Association (ADA) provides guidance for cutoff [...] Standards of Medical Care in Diabetes 2016, [place] [employer]. Diabetes Care. 2016.39(Suppl 1). Performed By: #### 2 157-6, 07882-6, 61102-9, 7- ####[facility] LABCLIA [id number] [place] [address] [place] Potassium [Moles/Vol] 3.8 mmol/L Normal 3.7-5.1 [facility] Comment on above: Order Comment: Speci men Type: BLOOD SPECIMENOrdering Facility: [facility] Address: [address] [place] [address] Performed By: #### 2 157-6, 45081-4, 20505-2, 7-1 ####[facility] LABCLIA [id number] [place] [address] [place] Protein [Mass/Vol] 6.6 g/dL Normal 6.3-8.0 [facility] Comment on above: Order Comment: Speci men Type: BLOOD SPECIMENOrdering Facility: [facility] Address: [address] [place] [address] Performed By: #### 2 157-6, 99777-2, 68058-9, 7-1 ####[facility] LABIA [id number] [place] [address] [place] Sodium [Moles/Vol] 136 mmol/L Normal 136-144 [facility] Comment on above: Order Comment: Speci men Type: BLOOD SPECIMENOrdering Facility: [facility] Address: [address] [place] [address] Performed By: #### 2 157-6, 58132-0, 04218-8, 2777-1 ####[facility] LABIA [id number] [place] [address] [place] Urea nitrogen [Mass/Vol] 12 mg/dL Normal 7-21 [facility] Comment on above: Order Comment: Speci men Type: BLOOD SPECIMENOrdering Facility: [facility] Address: [address] [place] [address] Performed By: #### 2 157-6, 66639-0, 76116-3, 2777-1 ####[facility] [id number] [place] [address] [place] Fact Xa PPP-aCncon 5 Coagulation factor X activated act Coag Qn (PPP) 0.64 IU/mL High <0.10 [facility] Comment on above: Order Comment: Speci men Type: BLOOD SPECIMENOrdering Facility: [facility] Address: [address] [place] [address] Result Comment: The recommended therapeutic range for treatment of venous and arterial thrombosis with intravenous unfractionated heparin is an anti Xa activity level of 0.3 to 0.7 IU/mL. In patients with concomitant therapy with thrombolytic agents and/or platelet glycoprotein IIb/IIIa antagonists, the recommended therapeutic range is an anti Xa activity level of 0.2 to 0.5 IU/mL. Performed By: #### 3 217-7 ####[facility] LABIA [id number] [place] [address] [place] Coagulation factor X activated act Coag Qn (PPP) 0.48 IU/mL High <0.10 [facility] Comment on above: Order Comment: Dora finch Type: BLOOD SPECIMENOrdering Facility: [facility] Address: [address] [place] [address] Result Comment: The recommended therapeutic range for treatment of venous and arterial thrombosis with intravenous unfractionated heparin is an anti Xa activity level of 0.3 to 0.7 IU/mL. In patients with concomitant therapy with thrombolytic agents and/or platelet glycoprotein IIb/IIIa antagonists, the recommended therapeutic range is an anti Xa activity level of 0.2 to 0.5 IU/mL. Performed By: #### 3 217-7 ####[facility] LABIA [id number] [place] [address] [place] HISTORY PHYSICALon HISTORY PHYSICAL Normal [facility] Magnesium SerPl-mCncon 12-06 Magnesium [Mass/Vol] 1.5 mg/dL Low 1.7-2.3 [facility] Comment on above: Order Comment: Dora finch Type: BLOOD SPECIMENOrdering Facility: [facility] Address: [address] [place] [address] Performed By: #### 2 157-6, 12139-8, 66878-3, 2777-1 ####[facility] LABIA [id number] [place] [address] [place] NUTRITIONon 12-06-2024 NUTRITION Normal [facility] PT EDon 12-06-2024 PT ED Normal [facility] PT panel Coag (PPP)on 2024 INR Coag (PPP) [Relative time] 1.1 {INR} Normal 0.9-1.3 [facility] Comment on above: Order Comment: Dora finch Type: BLOOD SPECIMENOrdering Facility: [facility] Address: [address] [place] [address] Result Comment: Yamileth min K Antagonist (VKA) Therapeutic Range: INR 2 to 3 (Target INR of 2.5)Note: For patients treated with VKA drugs, such as warfarin, the [place] [employer] 2012 Guideline recommends [...] al. Chest 2012, 141:7S-47SMarkel RA, et al. [facility] 2017, 70: 252-289 Performed By: #### 3 4528-0, 06778-2 ####[facility] LABIA [id number] [place] [address] [place] PT Coag (PPP) [Time] 11.9 s Normal 9.7-13.0 [facility] Comment on above: Order Comment: Speci men Type: BLOOD SPECIMENOrdering Facility: [facility] Address: [address] [place] [address] Performed By: #### 3 4528-0, 12596-9 ####[facility] [id number] [place] [address] [place] PTT, ANTICOAGULANT THERAPYon 12-06-2024 aPTT Coag (PPP) [Time] 58.4 s High 23.0-32.4 [facility] Comment on above: Order Comment: Speci men Type: BLOOD SPECIMENOrdering Facility: [facility] Address: [address] [place] [address] Performed By: #### P TTAC ####[facility] LABIA [id number] [place] [address] [place] Phosphate SerPl-mCncon 12-06 Phosphate [Mass/Vol] 2.8 mg/dL Normal 2.7-4.8 [facility] Comment on above: Order Comment: Speci men Type: BLOOD SPECIMENOrdering Facility: [facility] Address: [address] [place] [address] Performed By: #### 2 157-6, 22397-3, 77480-8, 2777-1 ####[facility] LABCLIA [id number] [place] [id number] [place] aPTT PPPon 12-06-2024 aPTT Coag (PPP) [Time] 53.0 s High 23.0-32.4 [facility] Comment on above: Order Comment: Speci men Type: BLOOD SPECIMENOrdering Facility: [facility] Address: [address] [place] [address] Performed By: #### 3 4528-0, 63376-2 ####[facility] LABCLIA [id number] [place] [id number] [place] ALLIED HEALTHon 12-05-2024 ALLIED HEALTH Normal [facility] ANES POSTPROC EVALon 025 ANES POSTPROC EVAL Normal [facility] ANES PRE-OPon 12-05-2024 ANES PRE-OP Normal [facility] CASE MANAGEMon 12-05-2024 CASE MANAGEM Normal [facility] CBC panel Auto (Bld)on 12-05 Hematocrit (Bld) [Volume fraction] 29.6 % Low 36.0-46.0 [facility] Comment on above: Order Comment: Speci men Type: BLOOD SPECIMENOrdering Facility: [facility] Address: [address] [place] [address] Performed By: #### 5 8410-2 ####[facility] LABCLIA [id number] [place] [id number] [place] Hemoglobin (Bld) [Mass/Vol] 9.0 g/dL Low 11.5-15.5 [facility] Comment on above: Order Comment: Speci men Type: BLOOD SPECIMENOrdering Facility: [facility] Address: [address] [place] [address] Performed By: #### 5 8410-2 ####[facility] LABCLIA [id number] [address], [place] [address] [place] MCH (RBC) [Entitic mass] 25.4 pg Low 26.0-34.0 [facility] Comment on above: Order Comment: Speci men Type: BLOOD SPECIMENOrdering Facility: [facility] Address: [address] [place] [address] Performed By: #### 5 8410-2 ####[facility] LABCLIA [id number] [address], [place] [address] [place] MCV (RBC) [Entitic vol] 83.4 fL Normal 80.0-100.0 [facility] Comment on above: Order Comment: Speci men Type: BLOOD SPECIMENOrdering Facility: [facility] Address: [address] [place] [address] Performed By: #### 5 8410-2 ####[facility] LABIA [id number] [place] [address] [place] Nucleated RBC (Bld) [#/Vol] 10*3/uL Normal <0.01 [facility] Comment on above: Order Comment: Speci men Type: BLOOD SPECIMENOrdering Facility: [facility] Address: [address] [place] [address] Performed By: #### 5 8410-2 ####[facility] LABCLIA [id number] [place] [address] [place] Platelets (Bld) [#/Vol] 438 10*3/uL High 150-400 [facility] Comment on above: Order Comment: Speci men Type: BLOOD SPECIMENOrdering Facility: [facility] Address: [address] [place] [address] Performed By: #### 5 8410-2 ####[facility] LABIA [id number] [place] [address] [place] RBC (Bld) [#/Vol] 3.55 10*6/uL Low 3.90-5.20 [facility] Comment on above: Order Comment: Speci men Type: BLOOD SPECIMENOrdering Facility: [facility] Address: [address] [place] [address] Performed By: #### 5 8410-2 ####[facility] LABCLIA [id number] [place] [address] [place] WBC (Bld) [#/Vol] 6.92 10*3/uL Normal 3.70-11.00 [facility] Comment on above: Order Comment: Speci men Type: BLOOD SPECIMENOrdering Facility: [facility] Address: [address] [place] [address] Performed By: #### 5 8410-2 ####[facility] LABCLIA [id number] [place] [address] [place] CONSULT PROGon 12-05-2024 CONSULT PROG Normal [facility] CONSULT PROG Normal [facility] CONSULT PROG Normal [facility] Comprehensive metabolic 2000 panelon 12-05-2024 Albumin [Mass/Vol] 3.4 g/dL Low 3.9-4.9 [facility] Comment on above: Order Comment: Speci men Type: BLOOD SPECIMENOrdering Facility: [facility] Address: [address] [place] [address] Performed By: #### 2 4323-8, , 2776- ####[facility] LABCLIA [id number] [place] [id number] [place] ALP [Catalytic activity/Vol] 189 U/L High 34-123 [facility] Comment on above: Order Comment: Speci men Type: BLOOD SPECIMENOrdering Facility: [facility] Address: [address] [place] [address] Performed By: #### 2 4323-8, 59543-8, 2777-1 ####[facility] LABCLIA [id number] [address] [place] [address] [place] ALT [Catalytic activity/Vol] 41 U/L High 7-38 [facility] Comment on above: Order Comment: Speci men Type: BLOOD SPECIMENOrdering Facility: [facility] Address: [address] [place] [address] Performed By: #### 2 4323-8, 78158-5, 2776-06 ####[facility] LABCLIA [id number] [address], [facility]95 [place] Anion gap [Moles/Vol] 12 mmol/L Normal 8-15 [facility] Comment on above: Order Comment: Speci men Type: BLOOD SPECIMENOrdering Facility: [facility] Address: [address] [place] [address] Performed By: #### 2 4323-8, , 2776-06 ####[facility] LABCLIA [id number] [place] [address] [place] AST [Catalytic activity/Vol] 33 U/L Normal 13-35 [facility] Comment on above: Order Comment: Speci men Type: BLOOD SPECIMENOrdering Facility: [facility] Address: [address] [place] [address] Performed By: #### 2 4323-8, , 2776-06 ####[facility] LABCLIA [id number] [address], [facility] [place] Bilirubin [Mass/Vol] 0.8 mg/dL Normal 0.2-1.3 [facility] Comment on above: Order Comment: Speci men Type: BLOOD SPECIMENOrdering Facility: [facility] Address: [address] [place] [address] Performed By: #### 2 4323-8, , 2776-06 ####[facility] LABCLIA [id number] [address] [address] [place] Calcium [Mass/Vol] 9.7 mg/dL Normal 8.5-10.2 [facility] Comment on above: Order Comment: Speci men Type: BLOOD SPECIMENOrdering Facility: [facility] Address: [address] [place], [place] [address] Performed By: #### 2 4323-8, , 2776-06 ####[facility] LABCLIA [id number] [facility] [address] [place] [address] [place] Chloride [Moles/Vol] 99 mmol/L Normal 98-107 [facility] Comment on above: Order Comment: Speci men Type: BLOOD SPECIMENOrdering Facility: [facility] Address: [address] [place] [address] Performed By: #### 2 4323-8, , 2776-06 ####[facility] LABCLIA [id number] [place] [address] [place] CO2 [Moles/Vol] 25 mmol/L Normal 22-30 [facility] Comment on above: Order Comment: Speci men Type: BLOOD SPECIMENOrdering Facility: [facility] Address: [address] [place] [address] Performed By: #### 2 4323-8, , 2776-06 ####[facility] LABCLIA [id number] [address] [place] [address] [place] Creatinine [Mass/Vol] 0.93 mg/dL Normal 0.58-0.96 [facility] Comment on above: Order Comment: Speci men Type: BLOOD SPECIMENOrdering Facility: [facility] Address: [address] [place] [address] Performed By: #### 2 4323-8, , 2776-06 ####[facility] LABCLIA [id number] [facility] [address] [place] [address] [place] Creatinine and Glomerular filtration rate.predicted panel (S/P/Bld) 79 mL/min/1.73m??? Normal >=60 [facility] Comment on above: Order Comment: Dora finch Type: BLOOD SPECIMENOrdering Facility: [facility] Address: [address] [place] [address] Result Comment: Zeny mated Glomerular Filtration Rate [...] actual GFR. Performed By: #### 2 4323-8, 82086-2, 2776-06 ####[facility] LABIA [id number] [place] [address] [place] Glucose [Mass/Vol] 91 mg/dL Normal 74-99 [facility] Comment on above: Order Comment: Dora finch Type: BLOOD SPECIMENOrdering Facility: [facility] Address: [address] [place] [address] Result Comment: The [place] [employer] (ADA) provides guidance for cutoff [...] Standards of Medical Care in Diabetes 2016, [place] [employer]. Diabetes Care. 2016.39(Suppl 1). Performed By: #### 2 4323-8, 90808-4, 2776-06 ####[facility] LABIA [id number] [address] [address] [place] Potassium [Moles/Vol] 3.8 mmol/L Normal 3.7-5.1 [facility] Comment on above: Order Comment: Speci men Type: BLOOD SPECIMENOrdering Facility: [facility] Address: [address] [place], [place] [address] Performed By: #### 2 4323-8, , 2776-06 ####[facility] LABCLIA [id number] [address] [address] [place] Protein [Mass/Vol] 6.9 g/dL Normal 6.3-8.0 [facility] Comment on above: Order Comment: Speci men Type: BLOOD SPECIMENOrdering Facility: [facility] Address: [address] [place] [address] Performed By: #### 2 4323-8, , 2776-06 ####[facility] LABCLIA [id number] [place] [address] [place] Sodium [Moles/Vol] 136 mmol/L Normal 136-144 [facility] Comment on above: Order Comment: Speci men Type: BLOOD SPECIMENOrdering Facility: [facility] Address: [address] [place] [address] Performed By: #### 2 4323-8, , 2776-06 ####[facility] LABIA [id number] [place] [address] [place] Urea nitrogen [Mass/Vol] 9 mg/dL Normal 7-21 [facility] Comment on above: Order Comment: Speci men Type: BLOOD SPECIMENOrdering Facility: [facility] Address: [address] [place], [place] [address] Performed By: #### 2 4323-8, , 2776-06 ####[facility] LABIA [id number] [place] [id number] [place] Fact Xa PPP-aCncon 5 Coagulation factor X activated act Coag Qn (PPP) <0.10 Normal <0.10 [facility] Comment on above: Order Comment: Speci men Type: BLOOD SPECIMENOrdering Facility: [facility] Address: [address] [place] [address] Result Comment: The recommended therapeutic range for treatment of venous and arterial thrombosis with intravenous unfractionated heparin is an anti Xa activity level of 0.3 to 0.7 IU/mL. In patients with concomitant therapy with thrombolytic agents and/or platelet glycoprotein IIb/IIIa antagonists, the recommended therapeutic range is an anti Xa activity level of 0.2 to 0.5 IU/mL. Performed By: #### 3 217-7, 93674-8, 51106-0 ####[facility] [id number] [place] [address] [place] Coagulation factor X activated act Coag Qn (PPP) 0.91 IU/mL High <0.10 [facility] Comment on above: Order Comment: Dora finch Type: BLOOD SPECIMENOrdering Facility: [facility] Address: [address] [place] [address] Result Comment: The recommended therapeutic range for treatment of venous and arterial thrombosis with intravenous unfractionated heparin is an anti Xa activity level of 0.3 to 0.7 IU/mL. In patients with concomitant therapy with thrombolytic agents and/or platelet glycoprotein IIb/IIIa antagonists, the recommended therapeutic range is an anti Xa activity level of 0.2 to 0.5 IU/mL. Performed By: #### 3 217-7 ####[facility] [id number] [place] [address] [place] Coagulation factor X activated act Coag Qn (PPP) >1.50 High <0.10 [facility] Comment on above: Order Comment: Dora finch Type: BLOOD SPECIMENOrdering Facility: [facility] Address: [address] [place] [address] Result Comment: Extr ruben high heparin anti-Xa [...] 0.5 IU/mL. Performed By: #### 3 217-7, 59271-3 ####[facility] [id number] [place] [id number] [place] HISTORY PHYSICALon HISTORY PHYSICAL Normal [facility] Magnesium SerPl-mCncon 12-05 Magnesium [Mass/Vol] 1.8 mg/dL Normal 1.7-2.3 [facility] Comment on above: Order Comment: Specsammie finch Type: BLOOD SPECIMENOrdering Facility: [facility] Address: [address] [place] [address] Performed By: #### 2 4323-8, 39945-9, 2777-1 ####[facility] LABIA [id number] [place] [id number] [place] NURSING PROGon 12-05-2024 NURSING PROG Normal [facility] NURSING PROG Normal [facility] NUTRITIONon 12-05-2024 NUTRITION Normal [facility] PT panel Coag (PPP)on 2024 INR Coag (PPP) [Relative time] 1.1 {INR} Normal 0.9-1.3 [facility] [facility] Comment on above: Order Comment: Dora finch Type: BLOOD SPECIMENOrdering Facility: [facility] Address: [address] [place] [address] Result Comment: Yamileth min K Antagonist (VKA) Therapeutic Range: INR 2 to 3 (Target INR of 2.5)Note: For patients treated with VKA drugs, such as warfarin, the [employer] 2012 Guideline recommends [...] al. Chest 2012, 141:7S-47SMarkel RA, et al. [facility] 2017, 70: 252-289 Performed By: #### 3 217-7, 83950-8, 25789-4 ####[facility] [id number] [place] [id number] [place] PT Coag (PPP) [Time] 11.5 s Normal 9.7-13.0 [facility] Comment on above: Order Comment: Dora finch Type: BLOOD SPECIMENOrdering Facility: [facility] Address: [address] [place] [address] Performed By: #### 3 217-7, 20449-9, 14067-1 ####[facility] [id number] [place] [address] [place] INR Coag (PPP) [Relative time] 1.2 {INR} Normal 0.9-1.3 [facility] Comment on above: Order Comment: Dora finch Type: BLOOD SPECIMENOrdering Facility: [facility] Address: [address] [place] [address] Result Comment: Yamileth min K Antagonist (VKA) Therapeutic Range: INR 2 to 3 (Target INR of 2.5)Note: For patients treated with VKA drugs, such as warfarin, the [employer] 2012 Guideline recommends [...] al. Chest 2012, 141:7S-47SNishimura RA, et al. [facility] 2017, 70: 252-289 Performed By: #### 3 217-7, 92271-4 ####[facility] LABIA [id number] [place] [id number] [place] PT Coag (PPP) [Time] 12.4 s Normal 9.7-13.0 [facility] Comment on above: Order Comment: Speci men Type: BLOOD SPECIMENOrdering Facility: [facility] Address: [address] [place] [address] Performed By: #### 3 217-7, 83952-1 ####[facility] LABIA [id number] [place] [address] [place] Phosphate SerPl-mCncon 12-05 Phosphate [Mass/Vol] 3.9 mg/dL Normal 2.7-4.8 [facility] Comment on above: Order Comment: Speci men Type: BLOOD SPECIMENOrdering Facility: [facility] Address: [address] [place] [address] Performed By: #### 2 4323-8, 96449-6, 2777-1 ####[facility] [id number] [place] [address] [place] aPTT PPPon 12-05-2024 aPTT Coag (PPP) [Time] 26.2 s Normal 23.0-32.4 [facility] Comment on above: Order Comment: Speci men Type: BLOOD SPECIMENOrdering Facility: [facility] Address: [address] [place] [address] Performed By: #### 3 217-7, 04113-6, 46175-8 ####[facility] LABIA [id number] [id number] [address] [place] aPTT Coag (PPP) [Time] s High 23.0-32.4 [facility] Comment on above: Order Comment: Speci men Type: BLOOD SPECIMENOrdering Facility: [facility] Address: [address] [place] [address] Result Comment: Samp le checked for clot.Result rechecked. Performed By: #### 1 4979-9 ####[facility] LABCLIA [id number] [facility] [id number] [place], [place] [id number] [place] Culture, Blood (WB)on 2024 CUB Blood cultures x2, f rom two different sites No growth in 5 days. Normal [facility] Comment on above: Performed By: #### L 100.0100, L500.4050, L503.6005, L300.3900, L300.4310, M200.1000 ####[facility] [address] [place], [address] Urine Cultureon 11-25-2024 URC Normal [facility] Comment on above: Performed By: #### M 100.678, L400.0001, M100.2200 ####[facility] [address] [place], [address] Basic Metabolic Profile (BMP )on 11-24-2024 BUN Normal 4-19 [facility] Comment on above: Result Comment: Canc elled via OM: Order cancelled - Patient discharged Performed By: #### L 500.2500, L100.0100 ####[facility] [address] [place], [address] BUN/CRE Normal 10-20 [facility] Comment on above: Result Comment: Canc elled via OM: Order cancelled - Patient discharged Performed By: #### L 500.2500, L100.0100 ####[facility] [address] [place], [address] Calcium Normal 7.6-11.0 [facility] Comment on above: Result Comment: Canc elled via OM: Order cancelled - Patient discharged Performed By: #### L 500.2500, L100.0100 ####[facility] [address] [place], [address] CL Normal 98-108 [facility] Comment on above: Result Comment: Canc elled via OM: Order cancelled - Patient discharged Performed By: #### L 500.2500, L100.0100 ####[facility] [address] [place], [address] CO2 Normal 21.0-32.0 [facility] Comment on above: Result Comment: Canc elled via OM: Order cancelled - Patient discharged Performed By: #### L 500.2500, L100.0100 ####[facility] [address] [place], [address] CREAT,SERUM Normal 0.70-1.20 [facility] Comment on above: Result Comment: Canc elled via OM: Order cancelled - Patient discharged Performed By: #### L 500.2500, L100.0100 ####[facility] [address] [place], [address] eGFR Normal >60 [facility] Comment on above: Result Comment: Canc elled via OM: Order cancelled - Patient discharged Performed By: #### L 500.2500, L100.0100 ####[facility] [address] [place], [address] GAP Normal 5-15 [facility] Comment on above: Result Comment: Canc elled via OM: Order cancelled - Patient discharged Performed By: #### L 500.2500, L100.0100 ####[facility] [address] [place], [address] GLU Normal 70-99 [facility] Comment on above: Result Comment: Canc elled via OM: Order cancelled - Patient discharged Performed By: #### L 500.2500, L100.0100 ####[facility] [address] [place], [address] Potassium Normal 3.3-5.1 [facility] Comment on above: Result Comment: Canc elled via OM: Order cancelled - Patient discharged Performed By: #### L 500.2500, L100.0100 ####[facility] [address] [place], [address] Basic Metabolic Profile (BMP) Normal 133-145 [facility] Comment on above: Result Comment: Canc elled via OM: Order cancelled - Patient discharged Performed By: #### L 500.2500, L100.0100 ####[facility] [address] [place], [address] CBC W/Diff, Automatedon 05-3 Absolute Neut Normal 2.0-7.7 [facility] Comment on above: Result Comment: Canc elled via OM: Order cancelled - Patient discharged Performed By: #### L 500.2500, L100.0100 ####[facility] [address] [place], [address] HCT Normal 37-47 [facility] Comment on above: Result Comment: Canc elled via OM: Order cancelled - Patient discharged Performed By: #### L 500.2500, L100.0100 ####[facility] [address] [place], [address] HGB Normal 12.0-15.0 [facility] Comment on above: Result Comment: Canc elled via OM: Order cancelled - Patient discharged Performed By: #### L 500.2500, L100.0100 ####[facility] [address] [place], [address] MCH Normal 27.0-32.0 [facility] Comment on above: Result Comment: Canc elled via OM: Order cancelled - Patient discharged Performed By: #### L 500.2500, L100.0100 ####[facility] [address] [place], [address] MCHC Normal 32-36 [facility] Comment on above: Result Comment: Canc elled via OM: Order cancelled - Patient discharged Performed By: #### L 500.2500, L100.0100 ####[facility] [address] [place], [address] MCV Normal 81-99 [facility] Comment on above: Result Comment: Canc elled via OM: Order cancelled - Patient discharged Performed By: #### L 500.2500, L100.0100 ####[facility] [address] [place], [address] NEUT% Normal 47-70 [facility] Comment on above: Result Comment: Canc elled via OM: Order cancelled - Patient discharged Performed By: #### L 500.2500, L100.0100 ####[facility] [address] [place], [address] PLT Normal 150-450 [facility] Comment on above: Result Comment: Canc elled via OM: Order cancelled - Patient discharged Performed By: #### L 500.2500, L100.0100 ####[facility] [address] [place], [address] RBC Normal 4.2-5.4 [facility] Comment on above: Result Comment: Canc elled via OM: Order cancelled - Patient discharged Performed By: #### L 500.2500, L100.0100 ####[facility] [address] [place], [address] RDW CV Normal 11.6-14.6 [facility] Comment on above: Result Comment: Canc elled via OM: Order cancelled - Patient discharged Performed By: #### L 500.2500, L100.0100 ####[facility] [address] [place], [address] RDW SD Normal 35.1-43.9 [facility] Comment on above: Result Comment: Canc elled via OM: Order cancelled - Patient discharged Performed By: #### L 500.2500, L100.0100 ####[facility] [address] [place], [address] WBC Normal 4.4-11.0 [facility] Comment on above: Result Comment: Canc elled via OM: Order cancelled - Patient discharged Performed By: #### L 500.2500, L100.0100 ####[facility] [address] [place], [address] Basic Metabolic Profile (BMP )on 11-23-2024 BUN/CRE 7.9 RATIO Low 10-20 [facility] Comment on above: Performed By: #### L 100.0100, L500.2500 ####[facility] [address] [place], [address] Calcium [Mass/Vol] 7.5 mg/dL Low 7.6-11.0 [facility] Comment on above: Performed By: #### L 100.0100, L500.2500 ####[facility] [address] [place], [address] Chloride [Moles/Vol] 111 mmol/L High 98-108 [facility] Comment on above: Performed By: #### L 100.0100, L500.2500 ####[facility] [address] [place], [address] CO2 [Moles/Vol] 18.5 mmol/L Low 21.0-32.0 [facility] Comment on above: Performed By: #### L 100.0100, L500.2500 ####[facility] [address] [place], [address] Creatinine [Mass/Vol] 0.91 mg/dL Normal 0.70-1.20 [facility] Comment on above: Performed By: #### L 100.0100, L500.2500 ####[facility] [address] [place], [address] ECRCL 90.47 ml/min Normal 50-250 [facility] Comment on above: Performed By: #### L 100.0100, L500.2500 ####[facility] [address] [place], [address] GAP 9 Normal 5-15 [facility] Comment on above: Performed By: #### L 100.0100, L500.2500 ####[facility] [address] [place], [address] GFR/1.73 sq M.predicted among non-blacks MDRD (S/P/Bld) [Vol rate/Area] 81 mL/min/{1.73_m2} Normal >60 [facility] Comment on above: Result Comment: mL/m in/1.73m2 CKD-EPI Creatinine Equation (2020) Performed By: #### L 100.0100, L500.2500 ####[facility] [address] [place], [address] Glucose [Mass/Vol] 111 mg/dL High 70-99 [facility] Comment on above: Performed By: #### L 100.0100, L500.2500 ####[facility] [address] [place], [address] Potassium [Moles/Vol] 3.2 mmol/L Low 3.3-5.1 [facility] Comment on above: Performed By: #### L 100.0100, L500.2500 ####[facility] [address] [place], [address] Sodium [Moles/Vol] 139 mmol/L Normal 133-145 [facility] Comment on above: Performed By: #### L 100.0100, L500.2500 ####[facility] [address] [place], [address] Urea nitrogen [Mass/Vol] 7 mg/dL Normal 4-19 [facility] Comment on above: Performed By: #### L 100.0100, L500.2500 ####[facility] [address] [place], [address] CBC W/Diff, Automatedon 10-27 OVALOCYTE 1+ Normal [facility] Comment on above: Performed By: #### L 100.0100, L500.2500 ####[facility] [address] [place], [address] PLT EST A Normal ADEQ [facility] Comment on above: Performed By: #### L 100.0100, L500.2500 ####[facility] [address] [place], [address] ATYPICAL LYMPH 1+ Normal [facility] Comment on above: Performed By: #### L 100.0100, L500.2500 ####[facility] [address] [place], [address] Basic Metabolic Profile (BMP )on 11-22-2024 BUN/CRE 14.4 RATIO Normal 10-20 [facility] Comment on above: Performed By: #### L 100.0100, L500.2500, L501.2300, L501.5200 ####[facility] [address] [place], [address] Calcium [Mass/Vol] 8.5 mg/dL Normal 7.6-11.0 [facility] Comment on above: Performed By: #### L 100.0100, L500.2500, L501.2300, L501.5200 ####[facility] [address] [place], [address] Chloride [Moles/Vol] 107 mmol/L Normal 98-108 [facility] Comment on above: Performed By: #### L 100.0100, L500.2500, L501.2300, L501.5200 ####[facility] [address] [place], [address] CO2 [Moles/Vol] 18.4 mmol/L Low 21.0-32.0 [facility] Comment on above: Performed By: #### L 100.0100, L500.2500, L501.2300, L501.5200 ####[facility] [address] [place], [address] Creatinine [Mass/Vol] 1.24 mg/dL High 0.70-1.20 [facility] Comment on above: Performed By: #### L 100.0100, L500.2500, L501.2300, L501.5200 ####[facility] [address] [place], [address] ECRCL 66.39 ml/min Normal 50-250 [facility] Comment on above: Performed By: #### L 100.0100, L500.2500, L501.2300, L501.5200 ####[facility] [address] [place], [address] GAP 11 Normal 5-15 [facility] Comment on above: Performed By: #### L 100.0100, L500.2500, L501.2300, L501.5200 ####[facility] [address] [place], [address] GFR/1.73 sq M.predicted among non-blacks MDRD (S/P/Bld) [Vol rate/Area] 56 mL/min/{1.73_m2} Low >60 [facility] Comment on above: Result Comment: mL/m in/1.73m2 CKD-EPI Creatinine Equation (2020) Performed By: #### L 100.0100, L500.2500, L501.2300, L501.5200 ####[facility] [address] [place], [address] Glucose [Mass/Vol] 101 mg/dL High 70-99 [facility] Comment on above: Performed By: #### L 100.0100, L500.2500, L501.2300, L501.5200 ####[facility] [address] [place], [address] Potassium [Moles/Vol] 3.4 mmol/L Normal 3.3-5.1 [facility] Comment on above: Performed By: #### L 100.0100, L500.2500, L501.2300, L501.5200 ####[facility] [address] [place], [address] Sodium [Moles/Vol] 137 mmol/L Normal 133-145 [facility] Comment on above: Performed By: #### L 100.0100, L500.2500, L501.2300, L501.5200 ####[facility] [address] [place], [address] Urea nitrogen [Mass/Vol] 18 mg/dL Normal 4-19 [facility] Comment on above: Performed By: #### L 100.0100, L500.2500, L501.2300, L501.5200 ####[facility] [address] [place], [address] CBC W/Diff, Automatedon 05-2 PATH REV Reviewed Normal [facility] Comment on above: Result Comment: SEE REPORT IN PATIENT'S EMR AMENDED REPORT 11/22/24 1421 PATH REV previously reported as: October bianca Performed By: #### L 300.3900, L300.4310, L503.6005, L500.4050, L501.4021, L503.7505, L100.0100, M200.1000 ####[facility] [address] [place], [address] Absolute Lymph 1.71 X10 3/uL Normal 0.83-4.51 [facility] Comment on above: Performed By: #### L 100.0100, L500.2500, L501.2300, L501.5200 ####[facility] [address] [place], [address] Absolute Neut 3.9 X10 3/uL Normal 2.0-7.7 [facility] Comment on above: Performed By: #### L 100.0100, L500.2500, L501.2300, L501.5200 ####[facility] [address] [place], [address] Basophils/100 WBC (Bld) 0.6 % Normal 0-1 [facility] Comment on above: Performed By: #### L 100.0100, L500.2500, L501.2300, L501.5200 ####[facility] [address] [place], [address] Eosinophils/100 WBC (Bld) 3.0 % Normal 0-5 [facility] Comment on above: Performed By: #### L 100.0100, L500.2500, L501.2300, L501.5200 ####[facility] [address] [place], [address] Erythrocyte distribution width (RBC) [Ratio] 16.2 % High 11.6-14.6 [facility] Comment on above: Performed By: #### L 100.0100, L500.2500, L501.2300, L501.5200 ####[facility] [address] [place], [address] Hematocrit (Bld) [Volume fraction] 27.7 % Low 37-47 [facility] Comment on above: Performed By: #### L 100.0100, L500.2500, L501.2300, L501.5200 ####[facility] [address] [place], [address] Hemoglobin (Bld) [Mass/Vol] 8.7 g/dL Low 12.0-15.0 [facility] Comment on above: Performed By: #### L 100.0100, L500.2500, L501.2300, L501.5200 ####[facility] [address] [place], [address] IG% 0.300 Normal 0.0-0.9 [facility] Comment on above: Result Comment: IG% - Immature Granulocytes (promyelocytes, myelocytes andmetamyelocytes) > 1% indicates that a LEFT SHIFT is Present. Performed By: #### L 100.0100, L500.2500, L501.2300, L501.5200 ####[facility] [address] [place], [address] Lymphocytes/100 WBC (Bld) 26.9 % Normal 19-41 [facility] Comment on above: Performed By: #### L 100.0100, L500.2500, L501.2300, L501.5200 ####[facility] [address] [place], [address] MCH (RBC) [Entitic mass] 25.1 pg Low 27.0-32.0 [facility] Comment on above: Performed By: #### L 100.0100, L500.2500, L501.2300, L501.5200 ####[facility] [address] [place], [address] MCHC (RBC) [Mass/Vol] 31.4 g/dL Low 32-36 [facility] Comment on above: Performed By: #### L 100.0100, L500.2500, L501.2300, L501.5200 ####[facility] [address] [place], [address] MCV (RBC) [Entitic vol] 79.8 fL Low 81-99 [facility] Comment on above: Performed By: #### L 100.0100, L500.2500, L501.2300, L501.5200 ####[facility] [address] [place], [address] Monocytes/100 WBC (Bld) 8.2 % Normal 0-10 [facility] Comment on above: Performed By: #### L 100.0100, L500.2500, L501.2300, L501.5200 ####[facility] [address] [place], [address] Neutrophils/100 WBC (Bld) 61.0 % Normal 47-70 [facility] Comment on above: Performed By: #### L 100.0100, L500.2500, L501.2300, L501.5200 ####[facility] [address] [place], [address] Nucleated RBC (Bld) [#/Vol] 0 10*3/uL Normal 0-5 [facility] Comment on above: Performed By: #### L 100.0100, L500.2500, L501.2300, L501.5200 ####[facility] [address] [place], [address] Platelet mean volume (Bld) [Entitic vol] 8.8 fL Normal 6.2-12.0 [facility] Comment on above: Performed By: #### L 100.0100, L500.2500, L501.2300, L501.5200 ####[facility] [address] [place], [address] Platelets (Bld) [#/Vol] 351 10*3/uL Normal 150-450 [facility] Comment on above: Performed By: #### L 100.0100, L500.2500, L501.2300, L501.5200 ####[facility] [address] [place], [address] RBC (Bld) [#/Vol] 3.47 10*6/uL Low 4.2-5.4 [facility] Comment on above: Performed By: #### L 100.0100, L500.2500, L501.2300, L501.5200 ####[facility] [address] [place], [address] RDW SD 46.9 fl High 35.1-43.9 [facility] Comment on above: Performed By: #### L 100.0100, L500.2500, L501.2300, L501.5200 ####[facility] [address] [place], [address] WBC (Bld) [#/Vol] 6.4 10*3/uL Normal 4.4-11.0 [facility] Comment on above: Performed By: #### L 100.0100, L500.2500, L501.2300, L501.5200 ####[facility] [address] [place], [address] Magnesiumon 11-22-2024 Magnesium [Mass/Vol] 1.3 mg/dL Low 1.5-2.2 [facility] Comment on above: Performed By: #### L 100.0100, L500.2500, L501.2300, L501.5200 ####[facility] [address] [place], [address] Phosphoruson 11-22-2024 Phosphate [Mass/Vol] 2.7 mg/dL Normal 2.7-4.5 [facility] Comment on above: Performed By: #### L 100.0100, L500.2500, L501.2300, L501.5200 ####[facility] [address] [place], [address] Basic Metabolic Profile (BMP )on 11-21-2024 BUN/CRE 11.9 RATIO Normal 10-20 [facility] Comment on above: Performed By: #### L 100.0100, L500.2500 ####[facility] [address] [place], [address] Calcium [Mass/Vol] 9.1 mg/dL Normal 7.6-11.0 [facility] Comment on above: Performed By: #### L 100.0100, L500.2500 ####[facility] [address] [place], [address] Chloride [Moles/Vol] 95 mmol/L Low 98-108 [facility] Comment on above: Performed By: #### L 100.0100, L500.2500 ####[facility] [address] [place], [address] CO2 [Moles/Vol] 15.6 mmol/L Low 21.0-32.0 [facility] Comment on above: Performed By: #### L 100.0100, L500.2500 ####[facility] [address] [place], [address] Creatinine [Mass/Vol] 2.69 mg/dL High 0.70-1.20 [facility] Comment on above: Performed By: #### L 100.0100, L500.2500 ####[facility] [address] [place], [address] ECRCL 30.60 ml/min Low 50-250 [facility] Comment on above: Performed By: #### L 100.0100, L500.2500 ####[facility] [address] [place], [address] GAP 17 High 5-15 [facility] Comment on above: Performed By: #### L 100.0100, L500.2500 ####[facility] [address] [place], [address] GFR/1.73 sq M.predicted among non-blacks MDRD (S/P/Bld) [Vol rate/Area] 22 mL/min/{1.73_m2} Low >60 [facility] Comment on above: Result Comment: mL/m in/1.73m2 CKD-EPI Creatinine Equation (2020) Performed By: #### L 100.0100, L500.2500 ####[facility] [address] [place], [address] Glucose [Mass/Vol] 127 mg/dL High 70-99 [facility] Comment on above: Performed By: #### L 100.0100, L500.2500 ####[facility] [address] [place], [address] Potassium [Moles/Vol] 3.6 mmol/L Normal 3.3-5.1 [facility] Comment on above: Performed By: #### L 100.0100, L500.2500 ####[facility] [address] [place], [address] Sodium [Moles/Vol] 128 mmol/L Low 133-145 [facility] Comment on above: Performed By: #### L 100.0100, L500.2500 ####[facility] [address] [place], [address] Urea nitrogen [Mass/Vol] 32 mg/dL High 4-19 [facility] Comment on above: Performed By: #### L 100.0100, L500.2500 ####[facility] [address] [place], [address] CBC W/Diff, Automatedon 05-2 Absolute Lymph 2.24 X10 3/uL Normal 0.83-4.51 [facility] Comment on above: Performed By: #### L 100.0100, L500.2500 ####[facility] [address] [place], [address] Absolute Neut 5.3 X10 3/uL Normal 2.0-7.7 [facility] Comment on above: Performed By: #### L 100.0100, L500.2500 ####[facility] [address] [place], [address] Basophils/100 WBC (Bld) 0.6 % Normal 0-1 [facility] Comment on above: Performed By: #### L 100.0100, L500.2500 ####[facility] [address] [place], [address] Eosinophils/100 WBC (Bld) 1.9 % Normal 0-5 [facility] Comment on above: Performed By: #### L 100.0100, L500.2500 ####[facility] [address] [place], [address] Erythrocyte distribution width (RBC) [Ratio] 16.3 % High 11.6-14.6 [facility] Comment on above: Performed By: #### L 100.0100, L500.2500 ####[facility] [address] [place], [address] Hematocrit (Bld) [Volume fraction] 30.2 % Low 37-47 [facility] Comment on above: Performed By: #### L 100.0100, L500.2500 ####[facility] [address] [place], [address] Hemoglobin (Bld) [Mass/Vol] 9.5 g/dL Low 12.0-15.0 [facility] Comment on above: Performed By: #### L 100.0100, L500.2500 ####[facility] [facility] [address] [place], [address] IG% 0.500 Normal 0.0-0.9 [facility] Comment on above: Result Comment: IG% - Immature Granulocytes (promyelocytes, myelocytes andmetamyelocytes) > 1% indicates that a LEFT SHIFT is Present. Performed By: #### L 100.0100, L500.2500 ####[facility] [address] [place], [address] Lymphocytes/100 WBC (Bld) 26.5 % Normal 19-41 [facility] Comment on above: Performed By: #### L 100.0100, L500.2500 ####[facility] [address] [place], [address] MCH (RBC) [Entitic mass] 24.7 pg Low 27.0-32.0 [facility] Comment on above: Performed By: #### L 100.0100, L500.2500 ####[facility] [address] [place], [address] MCHC (RBC) [Mass/Vol] 31.5 g/dL Low 32-36 [facility] Comment on above: Performed By: #### L 100.0100, L500.2500 ####[facility] [address] [place], [address] MCV (RBC) [Entitic vol] 78.6 fL Low 81-99 [facility] Comment on above: Performed By: #### L 100.0100, L500.2500 ####[facility] [address] [place], [address] Monocytes/100 WBC (Bld) 8.5 % Normal 0-10 [facility] Comment on above: Performed By: #### L 100.0100, L500.2500 ####[facility] [address] [place], [address] Neutrophils/100 WBC (Bld) 62.0 % Normal 47-70 [facility] Comment on above: Performed By: #### L 100.0100, L500.2500 ####[facility] [address] [place], [address] Nucleated RBC (Bld) [#/Vol] 0 10*3/uL Normal 0-5 [facility] Comment on above: Performed By: #### L 100.0100, L500.2500 ####[facility] [address] [place], [address] Platelet mean volume (Bld) [Entitic vol] 8.8 fL Normal 6.2-12.0 [facility] Comment on above: Performed By: #### L 100.0100, L500.2500 ####[facility] [address] [place], [address] Platelets (Bld) [#/Vol] 423 10*3/uL Normal 150-450 [facility] Comment on above: Performed By: #### L 100.0100, L500.2500 ####[facility] [address] [place], [address] RBC (Bld) [#/Vol] 3.84 10*6/uL Low 4.2-5.4 [facility] Comment on above: Performed By: #### L 100.0100, L500.2500 ####[facility] [address] [place], [address] RDW SD 46.2 fl High 35.1-43.9 [facility] Comment on above: Performed By: #### L 100.0100, L500.2500 ####[facility] [address] [place], [address] WBC (Bld) [#/Vol] 8.5 10*3/uL Normal 4.4-11.0 [facility] Comment on above: Performed By: #### L 100.0100, L500.2500 ####[facility] [address] [place], [address] H AND P Exam - Hospital[facility] 11-21-2024 H&P Exam - Hospitalist Normal [facility] Urinalysis, Completeon 11-21 BACTERIA 2+ /hpf Normal None Seen [facility] Comment on above: Order Comment: [facility]OR TO SPECIFY Performed By: #### M 100.678, L400.0001, M100.2200 ####[facility] [address] [place], [address] EPI,SQUAMOUS 0-5 SEEN Normal 5-10 [facility] Comment on above: Order Comment: [facility] CTOR TO SPECIFY Performed By: #### M 100.678, L400.0001, M100.2200 ####[facility] [address] [place], [address] WBC 10-25 SEEN Normal 0-5 [facility] Comment on above: Order Comment: [facility] CTOR TO SPECIFY Performed By: #### M 100.678, L400.0001, M100.2200 ####[facility] [address] [place], [address] YEAST 1+ /hpf Normal None Seen [facility] Comment on above: Order Comment: [facility] CTOR TO SPECIFY Performed By: #### M 100.678, L400.0001, M100.2200 ####[facility] [address] [place], [address] BILIRUBIN URINE Negative Normal Negative [facility] Comment on above: Order Comment: [facility] CTOR TO SPECIFY Performed By: #### M 100.678, L400.0001, M100.2200 ####[facility] [address] [place], [address] Clarity (U) Clear Normal Clear [facility] Comment on above: Order Comment: [facility] CTOR TO SPECIFY Performed By: #### M 100.678, L400.0001, M100.2200 ####[facility] [address] [place], [address] Color (U) Yellow Normal Yellow [facility] Comment on above: Order Comment: [facility] CTOR TO SPECIFY Performed By: #### M 100.678, L400.0001, M100.2200 ####[facility] [address] [place], [address] GLUCOSE, UR Normal Normal Normal [facility] Comment on above: Order Comment: [facility] CTOR TO SPECIFY Performed By: #### M 100.678, L400.0001, M100.2200 ####[facility] [address] [place], [address] KETONE UR Negative Normal Negative [facility] Comment on above: Order Comment: [facility] CTOR TO SPECIFY Performed By: #### M 100.678, L400.0001, M100.0 ####[facility] [address] [place], [address] LEUK ESTERASE 25 /ul Abnormal Negative [facility] Comment on above: Order Comment: [facility] CTOR TO SPECIFY Performed By: #### M 100.678, L400.0001, M100.0 ####[facility] [address] [place], [address] Nitrite Ql (U) Negative Normal Negative [facility] Comment on above: Order Comment: [facility] CTOR TO SPECIFY Performed By: #### M 100.678, L400.0001, M100.0 ####[facility] [address] [place], [address] OCCULT BLOOD-UR Negative Normal Negative [facility] Comment on above: Order Comment: [facility] CTOR TO SPECIFY Performed By: #### M 100.678, L400.0001, M1.0 ####[facility] [address] [place], [address] pH UR 5.0 Normal 5.0 - 8.0 [facility] Comment on above: Order Comment: [facility] CTOR TO SPECIFY Performed By: #### M 100.678, L400.0001, M100.2200 ####[facility] [address] [place], [address] PROT DIPSTX 30 mg/dl Abnormal Negative [facility] Comment on above: Order Comment: [facility] CTOR TO SPECIFY Performed By: #### M 100.678, L400.0001, M100.2200 ####[facility] [address] [place], [address] SP.GR. DIPSTX 1.015 Normal 1.002-1.030 [facility] Comment on above: Order Comment: [facility] CTOR TO SPECIFY Performed By: #### M 100.678, L400.0001, M100.2200 ####[facility] [address] [place], [address] UROBILI Normal Normal Normal [facility] Comment on above: Order Comment: [facility] CTOR TO SPECIFY Performed By: #### M 100.678, L400.0001, M100.2200 ####[facility] [address] [place], [address] Mucus Ql (Urine sed) 0 SEEN Normal [facility] Comment on above: Order Comment: [facility] CTOR TO SPECIFY Performed By: #### M 100.678, L400.0001, M100.2200 ####[facility] [address] [place], [address] RBC 0 SEEN Normal 0-5 [facility] Comment on above: Order Comment: [facility] CTOR TO SPECIFY Performed By: #### M 100.678, L400.0001, M100.2200 ####[facility] [address] [place], [address] 12 Lead EKGon 11-20-2024 12 [place] EKG Normal [facility] CBC W/Diff, Automatedon 05-2 PLT EST MKD INC Normal ADEQ [facility] Comment on above: Performed By: #### L 100.0100, L500.4050, L503.6005, L300.3900, L300.4310, M200.1000 ####[facility] [address] [place], [address] PATH REV May foll Normal [facility] Comment on above: Performed By: #### L 100.0100, L500.4050, L503.6005, L300.3900, L300.4310, M200.1000 ####[facility] [address] [place], [address] CTA Chst, Abd, Pel W and/or WOon 11-20-2024 CTA Chst, Abd, Pel W and/or WO Normal [facility] Comprehensive Metabolic Prof ilon 11-20-2024 Albumin [Mass/Vol] 4.7 g/dL Normal 3.5-5.0 [facility] Comment on above: Performed By: #### L 100.0100, L500.4050, L503.6005, L300.3900, L300.4310, M200.1000 ####[facility] [address] [place], [address] Albumin/Globulin [Mass ratio] 0.9 {ratio} Normal 0.9-2.4 [facility] Comment on above: Performed By: #### L 100.0100, L500.4050, L503.6005, L300.3900, L300.4310, M200.1000 ####[facility] [address] [place], [address] ALK PHOS 337 U/L High 35-104 [facility] Comment on above: Performed By: #### L 100.0100, L500.4050, L503.6005, L300.3900, L300.4310, M200.1000 ####[facility] [address] [place], [address] ALT [Catalytic activity/Vol] 127 U/L High <=34 [facility] Comment on above: Performed By: #### L 100.0100, L500.4050, L503.6005, L300.3900, L300.4310, M200.1000 ####[facility] [address] [place], [address] AST [Catalytic activity/Vol] 106 U/L High <=31 [facility] Comment on above: Performed By: #### L 100.0100, L500.4050, L503.6005, L300.3900, L300.4310, M200.1000 ####[facility] [address] [place], [address] Bilirubin [Mass/Vol] 0.82 mg/dL Normal 0.00-1.30 [facility] Comment on above: Performed By: #### L 100.0100, L500.4050, L503.6005, L300.3900, L300.4310, M200.1000 ####[facility] [address] [place], [address] BUN/CRE 8.4 RATIO Low 10-20 [facility] Comment on above: Performed By: #### L 100.0100, L500.4050, L503.6005, L300.3900, L300.4310, M200.1000 ####[facility] [address] [place], [address] Calcium [Mass/Vol] 10.8 mg/dL Normal 7.6-11.0 [facility] Comment on above: Performed By: #### L 100.0100, L500.4050, L503.6005, L300.3900, L300.4310, M200.1000 ####[facility] [address] [place], [address] Chloride [Moles/Vol] 88 mmol/L Low 98-108 [facility] Comment on above: Performed By: #### L 100.0100, L500.4050, L503.6005, L300.3900, L300.4310, M200.1000 ####[facility] [address] [place], [place], [address] CO2 [Moles/Vol] 15.2 mmol/L Low 21.0-32.0 [facility] Comment on above: Performed By: #### L 100.0100, L500.4050, L503.6005, L300.3900, L300.4310, M200.1000 ####[facility] [address] [place], [address] Creatinine [Mass/Vol] 4.32 mg/dL High 0.70-1.20 [facility] Comment on above: Performed By: #### L 100.0100, L500.4050, L503.6005, L300.3900, L300.4310, M200.1000 ####[facility] [address] [place], [place], [phone]) ECRCL 19.01 ml/min Low 50-250 [facility] Comment on above: Performed By: #### L 100.0100, L500.4050, L503.6005, L300.3900, L300.4310, M200.1000 ####[facility] [address] [place], [address] GAP 25 High 5-15 [facility] Comment on above: Performed By: #### L 100.0100, L500.4050, L503.6005, L300.3900, L300.4310, M200.1000 ####[facility] [address] [place], [place], [phone](328) GFR/1.73 sq M.predicted among non-blacks MDRD (S/P/Bld) [Vol rate/Area] 13 mL/min/{1.73_m2} Low >60 [facility] Comment on above: Result Comment: mL/m in/1.73m2 CKD-EPI Creatinine Equation (2020) Performed By: #### L 100.0100, L500.4050, L503.6005, L300.3900, L300.4310, M200.1000 ####[facility] [address] [place], [address] Globulin (S) [Mass/Vol] 5.5 g/dL High 2.2-4.2 [facility] Comment on above: Performed By: #### L 100.0100, L500.4050, L503.6005, L300.3900, L300.4310, M200.1000 ####[facility] [address] [place], [address] Glucose [Mass/Vol] 249 mg/dL High 70-99 [facility] Comment on above: Performed By: #### L 100.0100, L500.4050, L503.6005, L300.3900, L300.4310, M200.1000 ####[facility] [address] [place], [address] Potassium [Moles/Vol] 4.4 mmol/L Normal 3.3-5.1 [facility] Comment on above: Performed By: #### L 100.0100, L500.4050, L503.6005, L300.3900, L300.4310, M200.1000 ####[facility] [address] [place], [address] Sodium [Moles/Vol] 129 mmol/L Low 133-145 [facility] Comment on above: Performed By: #### L 100.0100, L500.4050, L503.6005, L300.3900, L300.4310, M200.1000 ####[facility] [address] [place], [address] T PROT 10.1 g/dL High 5.9-8.4 [facility] Comment on above: Performed By: #### L 100.0100, L500.4050, L503.6005, L300.3900, L300.4310, M200.1000 ####[facility] [address] [place], [address] Urea nitrogen [Mass/Vol] 36 mg/dL High 4-19 [facility] Comment on above: Performed By: #### L 100.0100, L500.4050, L503.6005, L300.3900, L300.4310, M200.1000 ####[facility] [address] [place], [address] Emergency Department Summary on 11-20-2024 Emergency Department Summary Normal [facility] Foot min 3 Viewson 5 Foot min 3 Views Normal [facility] L499.0042on 11-20-2024 Trop T High Sen 32 ng/L High <=14 [facility] Comment on above: Performed By: #### L 499.0042 ####[facility] [address] [place], [address] L499.0043on 11-20-2024 Trop T High Sen 32 ng/L High <=14 [facility] Comment on above: Performed By: #### L 499.0043 ####[facility] [address] [place], [address] L501.4021on 11-20-2024 Trop T High Sen 38 ng/L High <=14 [facility] Comment on above: Performed By: #### L 501.4021 ####[facility] [address] [place], [address] Lactic Acidon 11-20-2024 Lactate [Moles/Vol] 1.7 mmol/L Normal 0.0-2.0 [facility] Comment on above: Performed By: #### L 503.6005 ####[facility] [address] [place], [address] Lactate [Moles/Vol] 6.1 mmol/L Invalid Interpretation Code 0.0-2.0 [facility] Comment on above: Order Comment: Y Result Comment: Crit ical Result(s) Called at: 1557 by: CLAUDIA GUTIERREZ TO HANNACM??Results read back by same. Performed By: #### L 100.0100, L500.4050, L503.6005, L300.3900, L300.4310, M200.1000 ####[facility] [address] [place], [address] M100.678on 11-20-2024 M100.678 Pending SARS-CoV-2 (COVID 19) Negative INFLUENZA A Negative INFLUENZA B Negative RSV PCR Negative Normal [facility] Comment on above: Performed By: #### M 100.678, L400.0001, M100.2200 ####[facility] [address] [place], [address] Partial Thromboplast Timeon 11-20-2024 aPTT Coag (Bld) [Time] 30.1 s Normal 24.1-36.2 [facility] Comment on above: Performed By: #### L 100.0100, L500.4050, L503.6005, L300.3900, L300.4310, M200.1000 ####[facility] [address] [place], [address] Prothrombin Time w/INRon INR Coag (PPP) [Relative time] 1.1 {INR} Normal [facility] Comment on above: Performed By: #### L 100.0100, L500.4050, L503.6005, L300.3900, L300.4310, M200.1000 ####[facility] [address] [place], [address] PT Coag (PPP) [Time] 14.8 s Normal 11.7-14.9 [facility] Comment on above: Performed By: #### L 100.0100, L500.4050, L503.6005, L300.3900, L300.4310, M200.1000 ####[facility] [address] [place], [address] Culture, Anaerobic Any Sourc patricia 11-19-2024 CUAN UNK UNK COLLECTED IN OR No anaerobic bacteria isolated. [facility] Comment on above: Performed By: #### M 100.3000, M100.4001, M100.2000 ####[facility] [address] [place], [address] Culture, Blood (WB)on 2024 CUB Blood cultures x2, f rom two different sites No growth in 5 days. [facility] Comment on above: Performed By: #### M 200.1000 ####[facility] [address] [place], [address] CUB Blood cultures x2, f rom two different sites No growth in 5 days. [facility] Comment on above: Performed By: #### L 300.3900, L300.4310, L503.6005, L500.4050, L501.4021, L503.7505, L100.0100, M200.1000 ####[facility] [address] [place], [address] Wound Cultureon 11-18-2024 [facility] Comment on above: Performed By: #### M 100.3000, M100.4001, M100.2000 ####[facility] [address] [place], [address] Discharge Instructionon 10-26 Discharge Instruction Normal [facility] Basic Metabolic Profile (BMP )on 11-15-2024 BUN/CRE 13.5 RATIO Normal 10-20 [facility] Comment on above: Performed By: #### L 100.0100, L500.2500, L300.3900, L300.4310 ####[facility] [address] [place], [address] Calcium [Mass/Vol] 8.3 mg/dL Normal 7.6-11.0 [facility] Comment on above: Performed By: #### L 100.0100, L500.2500, L300.3900, L300.4310 ####[facility] [address] [place], [address] Chloride [Moles/Vol] 105 mmol/L Normal 98-108 [facility] Comment on above: Performed By: #### L 100.0100, L500.2500, L300.3900, L300.4310 ####[facility] [address] [place], [address] CO2 [Moles/Vol] 19.0 mmol/L Low 21.0-32.0 [facility] Comment on above: Performed By: #### L 100.0100, L500.2500, L300.3900, L300.4310 ####[facility] [address] [place], [address] Creatinine [Mass/Vol] 1.38 mg/dL High 0.70-1.20 [facility] Comment on above: Performed By: #### L 100.0100, L500.2500, L300.3900, L300.4310 ####[facility] [address] [place], [address] ECRCL 60.44 ml/min Normal 50-250 [facility] Comment on above: Performed By: #### L 100.0100, L500.2500, L300.3900, L300.4310 ####[facility] [address] [place], [address] GAP 11 Normal 5-15 [facility] Comment on above: Performed By: #### L 100.0100, L500.2500, L300.3900, L300.4310 ####[facility] [address] [place], [address] GFR/1.73 sq M.predicted among non-blacks MDRD (S/P/Bld) [Vol rate/Area] 49 mL/min/{1.73_m2} Low >60 [facility] Comment on above: Result Comment: mL/m in/1.73m2 CKD-EPI Creatinine Equation (2020) Performed By: #### L 100.0100, L500.2500, L300.3900, L300.4310 ####[facility] [address] [place], [address] Glucose [Mass/Vol] 90 mg/dL Normal 70-99 [facility] Comment on above: Performed By: #### L 100.0100, L500.2500, L300.3900, L300.4310 ####[facility] [address] [place], [address] Potassium [Moles/Vol] 3.2 mmol/L Low 3.3-5.1 [facility] Comment on above: Performed By: #### L 100.0100, L500.2500, L300.3900, L300.4310 ####[facility] [address] [place], [address] Sodium [Moles/Vol] 135 mmol/L Normal 133-145 [facility] Comment on above: Performed By: #### L 100.0100, L500.2500, L300.3900, L300.4310 ####[facility] [address] [place], [address] Urea nitrogen [Mass/Vol] 19 mg/dL Normal 4-19 [facility] Comment on above: Performed By: #### L 100.0100, L500.2500, L300.3900, L300.4310 ####[facility] [address] [place], [address] CBC W/Diff, Automatedon 05-2 -2024 Absolute Lymph 2.01 X10 3/uL Normal 0.83-4.51 [facility] Comment on above: Performed By: #### L 100.0100, L500.2500, L300.3900, L300.4310 ####[facility] [address] [place], [address] Absolute Neut 3.1 X10 3/uL Normal 2.0-7.7 [facility] Comment on above: Performed By: #### L 100.0100, L500.2500, L300.3900, L300.4310 ####[facility] [address] [place], [address] Basophils/100 WBC (Bld) 1.0 % Normal 0-1 [facility] Comment on above: Performed By: #### L 100.0100, L500.2500, L300.3900, L300.4310 ####[facility] [address] [place], [address] Eosinophils/100 WBC (Bld) 1.9 % Normal 0-5 [facility] Comment on above: Performed By: #### L 100.0100, L500.2500, L300.3900, L300.4310 ####[facility] [address] [place], [address] Erythrocyte distribution width (RBC) [Ratio] 16.0 % High 11.6-14.6 [facility] Comment on above: Performed By: #### L 100.0100, L500.2500, L300.3900, L300.4310 ####[facility] [address] [place], [address] Hematocrit (Bld) [Volume fraction] 26.8 % Low 37-47 [facility] Comment on above: Performed By: #### L 100.0100, L500.2500, L300.3900, L300.4310 ####[facility] [address] [place], [address] Hemoglobin (Bld) [Mass/Vol] 8.6 g/dL Low 12.0-15.0 [facility] Comment on above: Performed By: #### L 100.0100, L500.2500, L300.3900, L300.4310 ####[facility] [address] [place], [address] IG% 0.300 Normal 0.0-0.9 [facility] Comment on above: Result Comment: IG% - Immature Granulocytes (promyelocytes, myelocytes andmetamyelocytes) > 1% indicates that a LEFT SHIFT is Present. Performed By: #### L 100.0100, L500.2500, L300.3900, L300.4310 ####[facility] [address] [place], [address] Lymphocytes/100 WBC (Bld) 34.9 % Normal 19-41 [facility] Comment on above: Performed By: #### L 100.0100, L500.2500, L300.3900, L300.4310 ####[facility] [address] [place], [address] MCH (RBC) [Entitic mass] 25.2 pg Low 27.0-32.0 [facility] Comment on above: Performed By: #### L 100.0100, L500.2500, L300.3900, L300.4310 ####[facility] [address] [place], [address] MCHC (RBC) [Mass/Vol] 32.1 g/dL Normal 32-36 [facility] Comment on above: Performed By: #### L 100.0100, L500.2500, L300.3900, L300.4310 ####[facility] [address] [place], [address] MCV (RBC) [Entitic vol] 78.6 fL Low 81-99 [facility] Comment on above: Performed By: #### L 100.0100, L500.2500, L300.3900, L300.4310 ####[facility] [address] [place], [address] Monocytes/100 WBC (Bld) 8.0 % Normal 0-10 [facility] Comment on above: Performed By: #### L 100.0100, L500.2500, L300.3900, L300.4310 ####[facility] [address] [place], [address] Neutrophils/100 WBC (Bld) 53.9 % Normal 47-70 [facility] Comment on above: Performed By: #### L 100.0100, L500.2500, L300.3900, L300.4310 ####[facility] [address] [place], [address] Nucleated RBC (Bld) [#/Vol] 0 10*3/uL Normal 0-5 [facility] Comment on above: Performed By: #### L 100.0100, L500.2500, L300.3900, L300.4310 ####[facility] [address] [place], [address] Platelet mean volume (Bld) [Entitic vol] 9.1 fL Normal 6.2-12.0 [facility] Comment on above: Performed By: #### L 100.0100, L500.2500, L300.3900, L300.4310 ####[facility] [address] [place], [address] Platelets (Bld) [#/Vol] 394 10*3/uL Normal 150-450 [facility] Comment on above: Performed By: #### L 100.0100, L500.2500, L300.3900, L300.4310 ####[facility] [address] [place], [address] RBC (Bld) [#/Vol] 3.41 10*6/uL Low 4.2-5.4 [facility] Comment on above: Performed By: #### L 100.0100, L500.2500, L300.3900, L300.4310 ####[facility] [address] [place], [address] RDW SD 45.2 fl High 35.1-43.9 [facility] Comment on above: Performed By: #### L 100.0100, L500.2500, L300.3900, L300.4310 ####[facility] [address] [place], [address] WBC (Bld) [#/Vol] 5.8 10*3/uL Normal 4.4-11.0 [facility] Comment on above: Performed By: #### L 100.0100, L500.2500, L300.3900, L300.4310 ####[facility] [address] [place], [address] Decalcification bone/plaqueo n 11-15-2024 Decalcification bone/plaque Normal [facility] Comment on above: Performed By: #### P DEC ####[facility] [address] [place], [address] Gram Stainon 11-15-2024 GS UNK UNK COLLECTED IN OR Gram Stain Rare Gram positive cocci Rare Gram positive rods Normal [facility] Comment on above: Performed By: #### M 100.3000, M100.4001, M100.2000 ####[facility] [address] [place], [address] MR/POSTOP.ANEon 11-15-2024 MR/POSTOP.ANE Normal [facility] MR/TEZIGRMD1ae 11-15-2024 MR/POSTOPAN2 Normal [facility] Operative Reporton Operative Report Normal [facility] Partial Thromboplast Timeon 11-15-2024 aPTT Coag (Bld) [Time] 59.2 s High 24.1-36.2 [facility] Comment on above: Performed By: #### L 100.0100, L500.2500, L300.3900, L300.4310 ####[facility] [address] [place], [address] aPTT Coag (Bld) [Time] 82.6 s High 24.1-36.2 [facility] Comment on above: Performed By: #### L 300.4310 ####[facility] [address] [place], [address] ,Urineon 11-15-2024 Beta HCG ( test) Ql (U) Negative Normal [facility] [facility] Comment on above: Result Comment: Very dilute urine specimens, as indicated by a low specificgravity, may not contain territory sales representative levels of hCG.If is still suspected, a first morning urinespecimen should be collected 48 hours later and tested. Performed By: #### L 400.7600 ####[facility] [address] [place], [address] Prothrombin Time w/INRon INR Coag (PPP) [Relative time] 1.1 {INR} Normal [facility] Comment on above: Performed By: #### L 100.0100, L500.2500, L300.3900, L300.4310 ####[facility] [address] [place], [address] PT Coag (PPP) [Time] 14.0 s Normal 11.7-14.9 [facility] Comment on above: Performed By: #### L 100.0100, L500.2500, L300.3900, L300.4310 ####[facility] [address] [place], [address] CBC W/Diff, Automatedon 05- Absolute Lymph 1.95 X10 3/uL Normal 0.83-4.51 [facility] Comment on above: Performed By: #### L 100.0100, L500.4050 ####[facility] [address] [place], [address] Absolute Neut 3.7 X10 3/uL Normal 2.0-7.7 [facility] Comment on above: Performed By: #### L 100.0100, L500.4050 ####[facility] [address] [place], [address] Basophils/100 WBC (Bld) 0.8 % Normal 0-1 [facility] Comment on above: Performed By: #### L 100.0100, L500.4050 ####[facility] [address] [place], [address] Eosinophils/100 WBC (Bld) 2.1 % Normal 0-5 [facility] Comment on above: Performed By: #### L 100.0100, L500.4050 ####[facility] [address] [place], [address] Erythrocyte distribution width (RBC) [Ratio] 15.8 % High 11.6-14.6 [facility] Comment on above: Performed By: #### L 100.0100, L500.4050 ####[facility] [address] [place], [address] Hematocrit (Bld) [Volume fraction] 28.9 % Low 37-47 [facility] Comment on above: Performed By: #### L 100.0100, L500.4050 ####[facility] [address] [place], [address] Hemoglobin (Bld) [Mass/Vol] 9.3 g/dL Low 12.0-15.0 [facility] Comment on above: Performed By: #### L 100.0100, L500.4050 ####[facility] [address] [place], [address] IG% 0.300 Normal 0.0-0.9 [facility] Comment on above: Result Comment: IG% - Immature Granulocytes (promyelocytes, myelocytes andmetamyelocytes) > 1% indicates that a LEFT SHIFT is Present. Performed By: #### L 100.0100, L500.4050 ####[facility] [address] [place], [address] Lymphocytes/100 WBC (Bld) 30.8 % Normal 19-41 [facility] Comment on above: Performed By: #### L 100.0100, L500.4050 ####[facility] [address] [place], [address] MCH (RBC) [Entitic mass] 24.7 pg Low 27.0-32.0 [facility] Comment on above: Performed By: #### L 100.0100, L500.4050 ####[facility] [address] [place], [address] MCHC (RBC) [Mass/Vol] 32.2 g/dL Normal 32-36 [facility] Comment on above: Performed By: #### L 100.0100, L500.4050 ####[facility] [address] [place], [address] MCV (RBC) [Entitic vol] 76.9 fL Low 81-99 [facility] Comment on above: Performed By: #### L 100.0100, L500.4050 ####[facility] [address] [place], [address] Monocytes/100 WBC (Bld) 7.4 % Normal 0-10 [facility] Comment on above: Performed By: #### L 100.0100, L500.4050 ####[facility] [address] [place], [address] Neutrophils/100 WBC (Bld) 58.6 % Normal 47-70 [facility] Comment on above: Performed By: #### L 100.0100, L500.4050 ####[facility] [address] [place], [address] Nucleated RBC (Bld) [#/Vol] 0 10*3/uL Normal 0-5 [facility] Comment on above: Performed By: #### L 100.0100, L500.4050 ####[facility] [address] [place], [address] Platelet mean volume (Bld) [Entitic vol] 8.9 fL Normal 6.2-12.0 [facility] Comment on above: Performed By: #### L 100.0100, L500.4050 ####[facility] [address] [place], [address] Platelets (Bld) [#/Vol] 393 10*3/uL Normal 150-450 [facility] Comment on above: Performed By: #### L 100.0100, L500.4050 ####[facility] [address] [place], [address] RBC (Bld) [#/Vol] 3.76 10*6/uL Low 4.2-5.4 [facility] Comment on above: Performed By: #### L 100.0100, L500.4050 ####[facility] [address] [place], [address] RDW SD 43.0 fl Normal 35.1-43.9 [facility] Comment on above: Performed By: #### L 100.0100, L500.4050 ####[facility] [address] [place], [address] WBC (Bld) [#/Vol] 6.3 10*3/uL Normal 4.4-11.0 [facility] Comment on above: Performed By: #### L 100.0100, L500.4050 ####[facility] [address] [place], [address] Comprehensive Metabolic Prof ilon 11-14-2024 Albumin [Mass/Vol] 3.4 g/dL Low 3.5-5.0 [facility] Comment on above: Performed By: #### L 100.0100, L500.4050 ####[facility] [address] [place], [address] Albumin/Globulin [Mass ratio] 1.0 {ratio} Normal 0.9-2.4 [facility] Comment on above: Performed By: #### L 100.0100, L500.4050 ####[facility] [address] [place], [address] ALK PHOS 273 U/L High 35-104 [facility] Comment on above: Performed By: #### L 100.0100, L500.4050 ####[facility] [address] [place], [address] ALT [Catalytic activity/Vol] 205 U/L High <=34 [facility] Comment on above: Performed By: #### L 100.0100, L500.4050 ####[facility] [address] [place], [address] AST [Catalytic activity/Vol] 102 U/L High <=31 [facility] Comment on above: Performed By: #### L 100.0100, L500.4050 ####[facility] [address] [place], [address] Bilirubin [Mass/Vol] 1.20 mg/dL Normal 0.00-1.30 [facility] Comment on above: Performed By: #### L 100.0100, L500.4050 ####[facility] [address] [place], [address] BUN/CRE 18.6 RATIO Normal 10-20 [facility] Comment on above: Performed By: #### L 100.0100, L500.4050 ####[facility] [address] [place], [address] Calcium [Mass/Vol] 8.8 mg/dL Normal 7.6-11.0 [facility] Comment on above: Performed By: #### L 100.0100, L500.4050 ####[facility] [address] [place], [address] Chloride [Moles/Vol] 100 mmol/L Normal 98-108 [facility] Comment on above: Performed By: #### L 100.0100, L500.4050 ####[facility] [address] [place], [address] CO2 [Moles/Vol] 17.5 mmol/L Low 21.0-32.0 [facility] Comment on above: Performed By: #### L 100.0100, L500.4050 ####[facility] [address] [place], [address] Creatinine [Mass/Vol] 2.17 mg/dL High 0.70-1.20 [facility] Comment on above: Performed By: #### L 100.0100, L500.4050 ####[facility] [address] [place], [address] ECRCL 38.54 ml/min Low 50-250 [facility] Comment on above: Performed By: #### L 100.0100, L500.4050 ####[facility] [address] [place], [address] GAP 14 Normal 5-15 [facility] Comment on above: Performed By: #### L 100.0100, L500.4050 ####[facility] [address] [place], [address] GFR/1.73 sq M.predicted among non-blacks MDRD (S/P/Bld) [Vol rate/Area] 29 mL/min/{1.73_m2} Low >60 [facility] Comment on above: Result Comment: mL/m in/1.73m2 CKD-EPI Creatinine Equation (2020) Performed By: #### L 100.0100, L500.4050 ####[facility] [address] [place], [address] Globulin (S) [Mass/Vol] 3.6 g/dL Normal 2.2-4.2 [facility] Comment on above: Performed By: #### L 100.0100, L500.4050 ####[facility] [address] [place], [address] Glucose [Mass/Vol] 146 mg/dL High 70-99 [facility] Comment on above: Performed By: #### L 100.0100, L500.4050 ####[facility] [address] [place], [address] Potassium [Moles/Vol] 3.4 mmol/L Normal 3.3-5.1 [facility] Comment on above: Performed By: #### L 100.0100, L500.4050 ####[facility] [address] [place], [address] Sodium [Moles/Vol] 131 mmol/L Low 133-145 [facility] Comment on above: Performed By: #### L 100.0100, L500.4050 ####[facility] [address] [place], [address] T PROT 7.0 g/dL Normal 5.9-8.4 [facility] Comment on above: Performed By: #### L 100.0100, L500.4050 ####[facility] [address] [place], [address] Urea nitrogen [Mass/Vol] 40 mg/dL High 4-19 [facility] Comment on above: Performed By: #### L 100.0100, L500.4050 ####[facility] [address] [place], [address] Consultation - Surgicalon Consultation - Surgical Normal [facility] Lower Ext Art Exam w/o Exerc marly 11-14-2024 Lower Ext Art Exam w/o Exercis Normal [facility] Partial Thromboplast Timeon 11-14-2024 aPTT Coag (Bld) [Time] 30.6 s Normal 24.1-36.2 [facility] Comment on above: Performed By: #### L 300.4310 ####[facility] [address] [place], [address] aPTT Coag (Bld) [Time] 55.3 s High 24.1-36.2 [facility] Comment on above: Performed By: #### L 300.4310 ####[facility] [address] [place], [address] aPTT Coag (Bld) [Time] 56.1 s High 24.1-36.2 [facility] Comment on above: Performed By: #### L 300.4310 ####[facility] [address] [place], [address] Urine Cultureon 11-14-2024 URC Culture exhibits no growth. Normal [facility] Comment on above: Performed By: #### L 400.0001, M100.678, M100.2200 ####[facility] [address] [place], [address] 12 [place] EKGon 11-13-2024 12 [place] EKG Normal [facility] CRPon 11-13-2024 C-REACTIVE PROT 10.90 mg/L High 0.0-3.0 [facility] Comment on above: Performed By: #### L 501.6710, L101.9900 ####[facility] [address] [place], [address] Chest PA and Lateralon 11-13 Chest PA and Lateral Normal [facility] Comprehensive Metabolic Prof ilon 11-13-2024 Albumin [Mass/Vol] 4.8 g/dL Normal 3.5-5.0 [facility] Comment on above: Performed By: #### L 300.3900, L300.4310, L503.6005, L500.4050, L501.4021, L503.7505, L100.0100, M200.1000 ####[facility] [address] [place], [address] Albumin/Globulin [Mass ratio] 0.9 {ratio} Normal 0.9-2.4 [facility] Comment on above: Performed By: #### L 300.3900, L300.4310, L503.6005, L500.4050, L501.4021, L503.7505, L100.0100, M200.1000 ####[facility] [address] [place], [address] ALK PHOS 459 U/L High 35-104 [facility] Comment on above: Performed By: #### L 300.3900, L300.4310, L503.6005, L500.4050, L501.4021, L503.7505, L100.0100, M200.1000 ####[facility] [address] [place], [address] ALT [Catalytic activity/Vol] 336 U/L High <=34 [facility] Comment on above: Performed By: #### L 300.3900, L300.4310, L503.6005, L500.4050, L501.4021, L503.7505, L100.0100, M200.1000 ####[facility] [address] [place], [address] AST [Catalytic activity/Vol] 197 U/L High <=31 [facility] Comment on above: Performed By: #### L 300.3900, L300.4310, L503.6005, L500.4050, L501.4021, L503.7505, L100.0100, M200.1000 ####[facility] [address] [place], [address] Bilirubin [Mass/Vol] 1.93 mg/dL High 0.00-1.30 [facility] Comment on above: Performed By: #### L 300.3900, L300.4310, L503.6005, L500.4050, L501.4021, L503.7505, L100.0100, M200.1000 ####[facility] [address] [place], [address] BUN/CRE 17.9 RATIO Normal 10-20 [facility] Comment on above: Performed By: #### L 300.3900, L300.4310, L503.6005, L500.4050, L501.4021, L503.7505, L100.0100, M200.1000 ####[facility] [address] [place], [address] Calcium [Mass/Vol] 11.0 mg/dL Normal 7.6-11.0 [facility] Comment on above: Performed By: #### L 300.3900, L300.4310, L503.6005, L500.4050, L501.4021, L503.7505, L100.0100, M200.1000 ####[facility] [address] [place], [address] Chloride [Moles/Vol] 86 mmol/L Low 98-108 [facility] Comment on above: Performed By: #### L 300.3900, L300.4310, L503.6005, L500.4050, L501.4021, L503.7505, L100.0100, M200.1000 ####[facility] [address] [place], [address] CO2 [Moles/Vol] 17.0 mmol/L Low 21.0-32.0 [facility] Comment on above: Performed By: #### L 300.3900, L300.4310, L503.6005, L500.4050, L501.4021, L503.7505, L100.0100, M200.1000 ####[facility] [address] [place], [address] Creatinine [Mass/Vol] 3.70 mg/dL High 0.70-1.20 [facility] Comment on above: Performed By: #### L 300.3900, L300.4310, L503.6005, L500.4050, L501.4021, L503.7505, L100.0100, M200.1000 ####[facility] [address] [place], [address] ECRCL 22.19 ml/min Low 50-250 [facility] Comment on above: Performed By: #### L 300.3900, L300.4310, L503.6005, L500.4050, L501.4021, L503.7505, L100.0100, M200.1000 ####[facility] [address] [place], [address] GAP 23 High 5-15 [facility] Comment on above: Performed By: #### L 300.3900, L300.4310, L503.6005, L500.4050, L501.4021, L503.7505, L100.0100, M200.1000 ####[facility] [address] [place], [address] GFR/1.73 sq M.predicted among non-blacks MDRD (S/P/Bld) [Vol rate/Area] 15 mL/min/{1.73_m2} Low >60 [facility] Comment on above: Result Comment: mL/m in/1.73m2 CKD-EPI Creatinine Equation (2020) Performed By: #### L 300.3900, L300.4310, L503.6005, L500.4050, L501.4021, L503.7505, L100.0100, M200.1000 ####[facility] [address] [place], [address] Globulin (S) [Mass/Vol] 5.5 g/dL High 2.2-4.2 [facility] Comment on above: Performed By: #### L 300.3900, L300.4310, L503.6005, L500.4050, L501.4021, L503.7505, L100.0100, M200.1000 ####[facility] [address] [place], [address] Glucose [Mass/Vol] 168 mg/dL High 70-99 [facility] Comment on above: Performed By: #### L 300.3900, L300.4310, L503.6005, L500.4050, L501.4021, L503.7505, L100.0100, M200.1000 ####[facility] [address] [place], [address] Potassium [Moles/Vol] 4.1 mmol/L Normal 3.3-5.1 [facility] Comment on above: Performed By: #### L 300.3900, L300.4310, L503.6005, L500.4050, L501.4021, L503.7505, L100.0100, M200.1000 ####[facility] [address] [place], [address] Sodium [Moles/Vol] 126 mmol/L Low 133-145 [facility] Comment on above: Performed By: #### L 300.3900, L300.4310, L503.6005, L500.4050, L501.4021, L503.7505, L100.0100, M200.1000 ####[facility] [address] [place], [address] T PROT 10.3 g/dL High 5.9-8.4 [facility] Comment on above: Performed By: #### L 300.3900, L300.4310, L503.6005, L500.4050, L501.4021, L503.7505, L100.0100, M200.1000 ####[facility] [address] [place], [address] Urea nitrogen [Mass/Vol] 66 mg/dL High 4-19 [facility] Comment on above: Performed By: #### L 300.3900, L300.4310, L503.6005, L500.4050, L501.4021, L503.7505, L100.0100, M200.1000 ####[facility] [address] [place], [address] Emergency Department Summary on 11-13-2024 Emergency Department Summary Normal [facility] Erythrocyte Sed Rateon 11-13 SED RATE 87 mm/hr High 0-30 [facility] Comment on above: Performed By: #### L 501.6710, L101.9900 ####[facility] [address] [place], [address] Foot min 3 Viewson 5 Foot min 3 Views Normal [facility] H AND P Exam - Hospitaliston 11-13-2024 H&P Exam - Hospitalist Normal [facility] L501.4021on 11-13-2024 Trop T High Sen 20 ng/L High <=14 [facility] Comment on above: Performed By: #### L 501.4021 ####[facility] [address] [place], [address] Trop T High Sen 30 ng/L High <=14 [facility] Comment on above: Performed By: #### L 300.3900, L300.4310, L503.6005, L500.4050, L501.4021, L503.7505, L100.0100, M200.1000 ####[facility] [address] [place], [address] L503.7505on 11-13-2024 Natriuretic peptide B (Bld) [Mass/Vol] 46 pg/mL Normal <=450 [facility] Comment on above: Result Comment: Hear t Failure Unlikely: < 300 pg/mLHeart Failure Likely< 50 Years: > 450 pg/mL50-75 Years: > 900 pg/mL>75 Years: > 1800 pg/mL Performed By: #### L 300.3900, L300.4310, L503.6005, L500.4050, L501.4021, L503.7505, L100.0100, M200.1000 ####[facility] [address] [place], [address] Lactic Acidon 11-13-2024 Lactate [Moles/Vol] 1.6 mmol/L Normal 0.0-2.0 [facility] Comment on above: Performed By: #### L 503.6005 ####[facility] [address] [place], [address] Lactate [Moles/Vol] 5.8 mmol/L Invalid Interpretation Code 0.0-2.0 [facility] Comment on above: Order Comment: Y Result Comment: Crit ical Result(s) Called at 1343: by: ROSSANA CARLSON. ??Results read back by same. Performed By: #### L 300.3900, L300.4310, L503.6005, L500.4050, L501.4021, L503.7505, L100.0100, M200.1000 ####[facility] [address] [place], [address] M100.678on 11-13-2024 M100.678 Pending SARS-CoV-2 (COVID 19) Negative INFLUENZA A Negative INFLUENZA B Negative RSV PCR Negative Normal [facility] Comment on above: Performed By: #### L 400.0001, M100.678, M100.2200 ####[facility] [address] [place], [address] Partial Thromboplast Timeon 11-13-2024 aPTT Coag (Bld) [Time] 73.1 s High 24.1-36.2 [facility] Comment on above: Performed By: #### L 300.4310 ####[facility] [address] [place], [address] aPTT Coag (Bld) [Time] 29.6 s Normal 24.1-36.2 [facility] Comment on above: Performed By: #### L 300.3900, L300.4310, L503.6005, L500.4050, L501.4021, L503.7505, L100.0100, M200.1000 ####[facility] [address] [place], [address] Prothrombin Time w/INRon INR Coag (PPP) [Relative time] 1.1 {INR} Normal [facility] Comment on above: Performed By: #### L 300.3900, L300.4310, L503.6005, L500.4050, L501.4021, L503.7505, L100.0100, M200.1000 ####[facility] [address] [place], [address] PT Coag (PPP) [Time] 13.9 s Normal 11.7-14.9 [facility] Comment on above: Performed By: #### L 300.3900, L300.4310, L503.6005, L500.4050, L501.4021, L503.7505, L100.0100, M200.1000 ####[facility] [address] [place], [address] Urinalysis, Completeon 11-13 CAST,HYALINE 10-25 SEEN Normal 0-5 [facility] Comment on above: Order Comment: [facility] TO SPECIFY Performed By: #### L 400.0001, M100.678, M100.2200 ####[facility] [address] [place], [address] EPI,SQUAMOUS 0-5 SEEN Normal 5-10 [facility] Comment on above: Order Comment: [facility] CTOR TO SPECIFY Performed By: #### L 400.0001, M100.678, M100.2200 ####[facility] [address] [place], [address] WBC 0-5 SEEN Normal 0-5 [facility] Comment on above: Order Comment: [facility] CTOR TO SPECIFY Performed By: #### L 400.0001, M100.678, M100.2200 ####[facility] [address] [place], [address] BACTERIA 0 SEEN Normal None Seen [facility] Comment on above: Order Comment: [facility] CTOR TO SPECIFY Performed By: #### L 400.0001, M100.678, M100.2200 ####[facility] [address] [place], [address] Mucus Ql (Urine sed) 0 SEEN Normal [facility] Comment on above: Order Comment: [facility] CTOR TO SPECIFY Performed By: #### L 400.0001, M100.678, M100.2200 ####[facility] [address] [place], [address] RBC 0 SEEN Normal 0-5 [facility] Comment on above: Order Comment: [facility] CTOR TO SPECIFY Performed By: #### L 400.0001, M100.678, M100.2200 ####[facility] [address] [place], [address] Basic Metabolic Profile (BMP )on 11-05-2024 BUN/CRE 4.7 RATIO Low 10-20 [facility] Comment on above: Performed By: #### L 500.2500 ####[facility] [address] [place], [address] Calcium [Mass/Vol] 8.6 mg/dL Normal 7.6-11.0 [facility] Comment on above: Performed By: #### L 500.2500 ####[facility] [address] [place], [address] Chloride [Moles/Vol] 110 mmol/L High 98-108 [facility] Comment on above: Performed By: #### L 500.2500 ####[facility] [address] [place], [address] CO2 [Moles/Vol] 19.7 mmol/L Low 21.0-32.0 [facility] Comment on above: Performed By: #### L 500.2500 ####[facility] [address] [place], [address] Creatinine [Mass/Vol] 0.94 mg/dL Normal 0.70-1.20 [facility] Comment on above: Performed By: #### L 500.2500 ####[facility] [address] [place], [address] ECRCL 89.97 ml/min Normal 50-250 [facility] Comment on above: Performed By: #### L 500.2500 ####[facility] [address] [place], [address] GAP 10 Normal 5-15 [facility] Comment on above: Performed By: #### L 500.2500 ####[facility] [address] [place], [address] GFR/1.73 sq M.predicted among non-blacks MDRD (S/P/Bld) [Vol rate/Area] 78 mL/min/{1.73_m2} Normal >60 [facility] Comment on above: Result Comment: mL/m in/1.73m2 CKD-EPI Creatinine Equation (2020) Performed By: #### L 500.2500 ####[facility] [address] [place], [address] Glucose [Mass/Vol] 85 mg/dL Normal 70-99 [facility] Comment on above: Performed By: #### L 500.2500 ####[facility] [address] [place], [address] Potassium [Moles/Vol] 3.7 mmol/L Normal 3.3-5.1 [facility] Comment on above: Performed By: #### L 500.2500 ####[facility] [address] [place], [address] Sodium [Moles/Vol] 139 mmol/L Normal 133-145 [facility] Comment on above: Performed By: #### L 500.2500 ####[facility] [address] [place], [address] Urea nitrogen [Mass/Vol] 4 mg/dL Normal 4-19 [facility] Comment on above: Performed By: #### L 500.2500 ####[facility] [address] [place], [address] Basic Metabolic Profile (BMP )on 11-04-2024 BUN/CRE 3.6 RATIO Low 10-20 [facility] Comment on above: Performed By: #### L 500.2500 ####[facility] [address] [place], [address] Calcium [Mass/Vol] 7.8 mg/dL Normal 7.6-11.0 [facility] Comment on above: Performed By: #### L 500.2500 ####[facility] [address] [place], [address] Chloride [Moles/Vol] 113 mmol/L High 98-108 [facility] Comment on above: Performed By: #### L 500.2500 ####[facility] [address] [place], [address] CO2 [Moles/Vol] 17.3 mmol/L Low 21.0-32.0 [facility] Comment on above: Performed By: #### L 500.2500 ####[facility] [address] [place], [address] Creatinine [Mass/Vol] 0.93 mg/dL Normal 0.70-1.20 [facility] Comment on above: Performed By: #### L 500.2500 ####[facility] [address] [place], [address] ECRCL 90.94 ml/min Normal 50-250 [facility] Comment on above: Performed By: #### L 500.2500 ####[facility] [address] [place], [address] GAP 9 Normal 5-15 [facility] Comment on above: Performed By: #### L 500.2500 ####[facility] [address] [place], [address] GFR/1.73 sq M.predicted among non-blacks MDRD (S/P/Bld) [Vol rate/Area] 79 mL/min/{1.73_m2} Normal >60 [facility] Comment on above: Result Comment: mL/m in/1.73m2 CKD-EPI Creatinine Equation (2020) Performed By: #### L 500.2500 ####[facility] [address] [place], [address] Glucose [Mass/Vol] 96 mg/dL Normal 70-99 [facility] Comment on above: Performed By: #### L 500.2500 ####[facility] [address] [place], [address] Potassium [Moles/Vol] 3.9 mmol/L Normal 3.3-5.1 [facility] Comment on above: Performed By: #### L 500.2500 ####[facility] [address] [place], [address] Sodium [Moles/Vol] 140 mmol/L Normal 133-145 [facility] Comment on above: Performed By: #### L 500.2500 ####[facility] [address] [place], [address] Urea nitrogen [Mass/Vol] 3 mg/dL Low - [facility] Comment on above: Performed By: #### L 500.2500 ####[facility] [address] [place], [address] Basic Metabolic Profile (BMP )on 11-03-2024 BUN/CRE 4.1 RATIO Low 10- [facility] Comment on above: Performed By: #### L 500.2500, L501.5200 ####[facility] [address] [place], [address] Calcium [Mass/Vol] 8.3 mg/dL Normal 7.6-11.0 [facility] Comment on above: Performed By: #### L 500.2500, L501.5200 ####[facility] [address] [place], [address] Chloride [Moles/Vol] 110 mmol/L High 98-108 [facility] Comment on above: Performed By: #### L 500.2500, L501.5200 ####[facility] [address] [place], [address] CO2 [Moles/Vol] 20.6 mmol/L Low 21.0-32.0 [facility] Comment on above: Performed By: #### L 500.2500, L501.5200 ####[facility] [facility] [address] [place], [address] Creatinine [Mass/Vol] 0.99 mg/dL Normal 0.70-1.20 [facility] Comment on above: Performed By: #### L 500.2500, L501.5200 ####[facility] [address] [place], [address] ECRCL 85.43 ml/min Normal 50-250 [facility] Comment on above: Performed By: #### L 500.2500, L501.5200 ####[facility] [address] [place], [address] GAP 9 Normal 5-15 [facility] Comment on above: Performed By: #### L 500.2500, L501.5200 ####[facility] [address] [place], [address] GFR/1.73 sq M.predicted among non-blacks MDRD (S/P/Bld) [Vol rate/Area] 74 mL/min/{1.73_m2} Normal >60 [facility] Comment on above: Result Comment: mL/m in/1.73m2 CKD-EPI Creatinine Equation (2020) Performed By: #### L 500.2500, L501.5200 ####[facility] [address] [place], [address] Glucose [Mass/Vol] 100 mg/dL High 70-99 [facility] Comment on above: Performed By: #### L 500.2500, L501.5200 ####[facility] [address] [place], [address] Potassium [Moles/Vol] 3.8 mmol/L Normal 3.3-5.1 [facility] Comment on above: Performed By: #### L 500.2500, L501.5200 ####[facility] [address] [place], [address] Sodium [Moles/Vol] 140 mmol/L Normal 133-145 [facility] Comment on above: Performed By: #### L 500.2500, L501.5200 ####[facility] [address] [place], [address] Urea nitrogen [Mass/Vol] 4 mg/dL Normal 4-19 [facility] Comment on above: Performed By: #### L 500.2500, L501.5200 ####[facility] [address] [place], [address] Magnesiumon 11-03-2024 Magnesium [Mass/Vol] 1.3 mg/dL Low 1.5-2.2 [facility] Comment on above: Performed By: #### L 500.2500, L501.5200 ####[facility] [address] [place], [address] Basic Metabolic Profile (BMP )on 11-02-2024 BUN/CRE 7.2 RATIO Low 10-20 [facility] Comment on above: Performed By: #### L 500.2500 ####[facility] [address] [place], [address] Calcium [Mass/Vol] 8.2 mg/dL Normal 7.6-11.0 [facility] Comment on above: Performed By: #### L 500.2500 ####[facility] [address] [place], [address] Chloride [Moles/Vol] 106 mmol/L Normal 98-108 [facility] Comment on above: Performed By: #### L 500.2500 ####[facility] [address] [place], [address] CO2 [Moles/Vol] 22.3 mmol/L Normal 21.0-32.0 [facility] Comment on above: Performed By: #### L 500.2500 ####[facility] [address] [place], [address] Creatinine [Mass/Vol] 0.96 mg/dL Normal 0.70-1.20 [facility] Comment on above: Performed By: #### L 500.2500 ####[facility] [address] [place], [address] ECRCL 88.09 ml/min Normal 50-250 [facility] Comment on above: Performed By: #### L 500.2500 ####[facility] [address] [place], [address] GAP 11 Normal 5-15 [facility] Comment on above: Performed By: #### L 500.2500 ####[facility] [address] [place], [address] GFR/1.73 sq M.predicted among non-blacks MDRD (S/P/Bld) [Vol rate/Area] 76 mL/min/{1.73_m2} Normal >60 [facility] Comment on above: Result Comment: mL/m in/1.73m2 CKD-EPI Creatinine Equation (2020) Performed By: #### L 500.2500 ####[facility] [address] [place], [address] Glucose [Mass/Vol] 79 mg/dL Normal 70-99 [facility] Comment on above: Performed By: #### L 500.2500 ####[facility] [address] [place], [address] Potassium [Moles/Vol] 3.0 mmol/L Low 3.3-5.1 [facility] Comment on above: Performed By: #### L 500.2500 ####[facility] [address] [place], [address] Sodium [Moles/Vol] 139 mmol/L Normal 133-145 [facility] Comment on above: Performed By: #### L 500.2500 ####[facility] [address] [place], [address] Urea nitrogen [Mass/Vol] 7 mg/dL Normal 4-19 [facility] Comment on above: Performed By: #### L 500.2500 ####[facility] [address] [place], [address] Basic Metabolic Profile (BMP )on 11-01-2024 BUN/CRE 8.6 RATIO Low 10-20 [facility] Comment on above: Performed By: #### L 500.2500 ####[facility] [address] [place], [address] Calcium [Mass/Vol] 8.5 mg/dL Normal 7.6-11.0 [facility] Comment on above: Performed By: #### L 500.2500 ####[facility] [address] [place], [address] Chloride [Moles/Vol] 102 mmol/L Normal 98-108 [facility] Comment on above: Performed By: #### L 500.2500 ####[facility] [address] [place], [address] CO2 [Moles/Vol] 24.0 mmol/L Normal 21.0-32.0 [facility] Comment on above: Performed By: #### L 500.2500 ####[facility] [address] [place], [address] Creatinine [Mass/Vol] 1.01 mg/dL Normal 0.70-1.20 [facility] Comment on above: Performed By: #### L 500.2500 ####[facility] [address] [place], [address] ECRCL 83.73 ml/min Normal 50-250 [facility] Comment on above: Performed By: #### L 500.2500 ####[facility] [address] [place], [address] GAP 10 Normal 5-15 [facility] Comment on above: Performed By: #### L 500.2500 ####[facility] [address] [place], [address] GFR/1.73 sq M.predicted among non-blacks MDRD (S/P/Bld) [Vol rate/Area] 72 mL/min/{1.73_m2} Normal >60 [facility] Comment on above: Result Comment: mL/m in/1.73m2 CKD-EPI Creatinine Equation (2020) Performed By: #### L 500.2500 ####[facility] [address] [place], [address] Glucose [Mass/Vol] 90 mg/dL Normal 70-99 [facility] Comment on above: Performed By: #### L 500.2500 ####[facility] [address] [place], [address] Potassium [Moles/Vol] 3.2 mmol/L Low 3.3-5.1 [facility] Comment on above: Performed By: #### L 500.2500 ####[facility] [address] [place], [address] Sodium [Moles/Vol] 136 mmol/L Normal 133-145 [facility] Comment on above: Performed By: #### L 500.2500 ####[facility] [address] [place], [address] Urea nitrogen [Mass/Vol] 9 mg/dL Normal 4-19 [facility] Comment on above: Performed By: #### L 500.2500 ####[facility] [address] [place], [address] Basic Metabolic Profile (BMP )on 10-31-2024 BUN/CRE 10.7 RATIO Normal 10-20 [facility] Comment on above: Performed By: #### L 100.0500, L500.2500 ####[facility] [address] [place], [address] Calcium [Mass/Vol] 8.6 mg/dL Normal 7.6-11.0 [facility] Comment on above: Performed By: #### L 100.0500, L500.2500 ####[facility] [address] [place], [address] Chloride [Moles/Vol] 100 mmol/L Normal 98-108 [facility] Comment on above: Performed By: #### L 100.0500, L500.2500 ####[facility] [address] [place], [address] CO2 [Moles/Vol] 21.6 mmol/L Normal 21.0-32.0 [facility] Comment on above: Performed By: #### L 100.0500, L500.2500 ####[facility] [address] [place], [address] Creatinine [Mass/Vol] 1.04 mg/dL Normal 0.70-1.20 [facility] Comment on above: Performed By: #### L 100.0500, L500.2500 ####[facility] [address] [place], [address] ECRCL 81.32 ml/min Normal 50-250 [facility] Comment on above: Performed By: #### L 100.0500, L500.2500 ####[facility] [address] [place], [address] GAP 13 Normal 5-15 [facility] Comment on above: Performed By: #### L 100.0500, L500.2500 ####[facility] [address] [place], [address] GFR/1.73 sq M.predicted among non-blacks MDRD (S/P/Bld) [Vol rate/Area] 69 mL/min/{1.73_m2} Normal >60 [facility] Comment on above: Result Comment: mL/m in/1.73m2 CKD-EPI Creatinine Equation (2020) Performed By: #### L 100.0500, L500.2500 ####[facility] [address] [place], [address] Glucose [Mass/Vol] 91 mg/dL Normal 70-99 [facility] Comment on above: Performed By: #### L 100.0500, L500.2500 ####[facility] [address] [place], [address] Potassium [Moles/Vol] 3.2 mmol/L Low 3.3-5.1 [facility] Comment on above: Performed By: #### L 100.0500, L500.2500 ####[facility] [address] [place], [address] Sodium [Moles/Vol] 135 mmol/L Normal 133-145 [facility] Comment on above: Performed By: #### L 100.0500, L500.2500 ####[facility] [address] [place], [address] Urea nitrogen [Mass/Vol] 11 mg/dL Normal 4-19 [facility] Comment on above: Performed By: #### L 100.0500, L500.2500 ####[facility] [address] [place], [address] CBC-Complete Blood Cnt No Di ffon 10-31-2024 Erythrocyte distribution width (RBC) [Ratio] 15.1 % High 11.6-14.6 [facility] Comment on above: Performed By: #### L 100.0500, L500.2500 ####[facility] [address] [place], [address] Hematocrit (Bld) [Volume fraction] 28.9 % Low 37-47 [facility] Comment on above: Performed By: #### L 100.0500, L500.2500 ####[facility] [address] [place], [address] Hemoglobin (Bld) [Mass/Vol] 8.9 g/dL Low 12.0-15.0 [facility] Comment on above: Performed By: #### L 100.0500, L500.2500 ####[facility] [address] [place], [address] MCH (RBC) [Entitic mass] 24.4 pg Low 27.0-32.0 [facility] Comment on above: Performed By: #### L 100.0500, L500.2500 ####[facility] [address] [place], [address] MCHC (RBC) [Mass/Vol] 30.8 g/dL Low 32-36 [facility] Comment on above: Performed By: #### L 100.0500, L500.2500 ####[facility] [address] [place], [address] MCV (RBC) [Entitic vol] 79.2 fL Low 81-99 [facility] Comment on above: Performed By: #### L 100.0500, L500.2500 ####[facility] [address] [place], [address] Platelet mean volume (Bld) [Entitic vol] 9.0 fL Normal 6.2-12.0 [facility] Comment on above: Performed By: #### L 100.0500, L500.2500 ####[facility] [address] [place], [address] Platelets (Bld) [#/Vol] 357 10*3/uL Normal 150-450 [facility] Comment on above: Performed By: #### L 100.0500, L500.2500 ####[facility] [address] [place], [address] RBC (Bld) [#/Vol] 3.65 10*6/uL Low 4.2-5.4 [facility] Comment on above: Performed By: #### L 100.0500, L500.2500 ####[facility] [address] [place], [address] RDW SD 43.3 fl Normal 35.1-43.9 [facility] Comment on above: Performed By: #### L 100.0500, L500.2500 ####[facility] [address] [place], [address] WBC (Bld) [#/Vol] 4.9 10*3/uL Normal 4.4-11.0 [facility] Comment on above: Performed By: #### L 100.0500, L500.2500 ####[facility] [address] [place], [address] Basic Metabolic Profile (BMP )on 10-30-2024 BUN/CRE 14.8 RATIO Normal 10-20 [facility] Comment on above: Performed By: #### L 100.0100, L500.2500 ####[facility] [address] [place], [address] Calcium [Mass/Vol] 8.6 mg/dL Normal 7.6-11.0 [facility] Comment on above: Performed By: #### L 100.0100, L500.2500 ####[facility] [address] [place], [address] Chloride [Moles/Vol] 100 mmol/L Normal 98-108 [facility] Comment on above: Performed By: #### L 100.0100, L500.2500 ####[facility] [address] [place], [address] CO2 [Moles/Vol] 22.0 mmol/L Normal 21.0-32.0 [facility] Comment on above: Performed By: #### L 100.0100, L500.2500 ####[facility] [address] [place], [address] Creatinine [Mass/Vol] 1.26 mg/dL High 0.70-1.20 [facility] Comment on above: Performed By: #### L 100.0100, L500.2500 ####[facility] [address] [place], [address] ECRCL 67.12 ml/min Normal 50-250 [facility] Comment on above: Performed By: #### L 100.0100, L500.2500 ####[facility] [address] [place], [address] GAP 14 Normal 5-15 [facility] Comment on above: Performed By: #### L 100.0100, L500.2500 ####[facility] [address] [place], [address] GFR/1.73 sq M.predicted among non-blacks MDRD (S/P/Bld) [Vol rate/Area] 55 mL/min/{1.73_m2} Low >60 [facility] Comment on above: Result Comment: mL/m in/1.73m2 CKD-EPI Creatinine Equation (2020) Performed By: #### L 100.0100, L500.2500 ####[facility] [address] [place], [address] Glucose [Mass/Vol] 96 mg/dL Normal 70-99 [facility] Comment on above: Performed By: #### L 100.0100, L500.2500 ####[facility] [address] [place], [address] Potassium [Moles/Vol] 3.6 mmol/L Normal 3.3-5.1 [facility] Comment on above: Performed By: #### L 100.0100, L500.2500 ####[facility] [address] [place], [address] Sodium [Moles/Vol] 135 mmol/L Normal 133-145 [facility] Comment on above: Performed By: #### L 100.0100, L500.2500 ####[facility] [address] [place], [address] Urea nitrogen [Mass/Vol] 19 mg/dL Normal 4-19 [facility] Comment on above: Performed By: #### L 100.0100, L500.2500 ####[facility] [address] [place], [address] CBC W/Diff, Automatedon 05-0 6-2024 Absolute Lymph 2.28 X10 3/uL Normal 0.83-4.51 [facility] Comment on above: Performed By: #### L 100.0100, L500.2500 ####[facility] [address] [place], [address] Absolute Neut 2.8 X10 3/uL Normal 2.0-7.7 [facility] Comment on above: Performed By: #### L 100.0100, L500.2500 ####[facility] [address] [place], [address] Basophils/100 WBC (Bld) 0.9 % Normal 0-1 [facility] Comment on above: Performed By: #### L 100.0100, L500.2500 ####[facility] [address] [place], [address] Eosinophils/100 WBC (Bld) 2.6 % Normal 0-5 [facility] Comment on above: Performed By: #### L 100.0100, L500.2500 ####[facility] [address] [place], [address] Erythrocyte distribution width (RBC) [Ratio] 15.1 % High 11.6-14.6 [facility] Comment on above: Performed By: #### L 100.0100, L500.2500 ####[facility] [address] [place], [address] Hematocrit (Bld) [Volume fraction] 28.3 % Low 37-47 [facility] Comment on above: Performed By: #### L 100.0100, L500.2500 ####[facility] [address] [place], [address] Hemoglobin (Bld) [Mass/Vol] 9.1 g/dL Low 12.0-15.0 [facility] Comment on above: Performed By: #### L 100.0100, L500.2500 ####[facility] [address] [place], [address] IG% 0.200 Normal 0.0-0.9 [facility] Comment on above: Result Comment: IG% - Immature Granulocytes (promyelocytes, myelocytes andmetamyelocytes) > 1% indicates that a LEFT SHIFT is Present. Performed By: #### L 100.0100, L500.2500 ####[facility] [address] [place], [address] Lymphocytes/100 WBC (Bld) 39.1 % Normal 19-41 [facility] Comment on above: Performed By: #### L 100.0100, L500.2500 ####[facility] [address] [place], [address] MCH (RBC) [Entitic mass] 24.7 pg Low 27.0-32.0 [facility] Comment on above: Performed By: #### L 100.0100, L500.2500 ####[facility] [address] [place], [address] MCHC (RBC) [Mass/Vol] 32.2 g/dL Normal 32-36 [facility] Comment on above: Performed By: #### L 100.0100, L500.2500 ####[facility] [address] [place], [address] MCV (RBC) [Entitic vol] 76.9 fL Low 81-99 [facility] Comment on above: Performed By: #### L 100.0100, L500.2500 ####[facility] [address] [place], [address] Monocytes/100 WBC (Bld) 8.9 % Normal 0-10 [facility] Comment on above: Performed By: #### L 100.0100, L500.2500 ####[facility] [address] [place], [address] Neutrophils/100 WBC (Bld) 48.3 % Normal 47-70 [facility] Comment on above: Performed By: #### L 100.0100, L500.2500 ####[facility] [address] [place], [address] Nucleated RBC (Bld) [#/Vol] 0 10*3/uL Normal 0-5 [facility] Comment on above: Performed By: #### L 100.0100, L500.2500 ####[facility] [address] [place], [address] Platelet mean volume (Bld) [Entitic vol] 9.0 fL Normal 6.2-12.0 [facility] Comment on above: Performed By: #### L 100.0100, L500.2500 ####[facility] [address] [place], [address] Platelets (Bld) [#/Vol] 403 10*3/uL Normal 150-450 [facility] Comment on above: Performed By: #### L 100.0100, L500.2500 ####[facility] [address] [place], [address] RBC (Bld) [#/Vol] 3.68 10*6/uL Low 4.2-5.4 [facility] Comment on above: Performed By: #### L 100.0100, L500.2500 ####[facility] [address] [place], [address] RDW SD 41.8 fl Normal 35.1-43.9 [facility] Comment on above: Performed By: #### L 100.0100, L500.2500 ####[facility] [address] [place], [address] WBC (Bld) [#/Vol] 5.8 10*3/uL Normal 4.4-11.0 [facility] Comment on above: Performed By: #### L 100.0100, L500.2500 ####[facility] [address] [place], [address] Basic Metabolic Profile (BMP )on 10-29-2024 BUN/CRE 15.4 RATIO Normal 10-20 [facility] Comment on above: Performed By: #### L 501.5200, L100.0100, L500.2500, L501.2300 ####[facility] [address] [place], [address] Calcium [Mass/Vol] 8.5 mg/dL Normal 7.6-11.0 [facility] Comment on above: Performed By: #### L 501.5200, L100.0100, L500.2500, L501.2300 ####[facility] [address] [place], [address] Chloride [Moles/Vol] 95 mmol/L Low 98-108 [facility] Comment on above: Performed By: #### L 501.5200, L100.0100, L500.2500, L501.2300 ####[facility] [address] [place], [address] CO2 [Moles/Vol] 23.1 mmol/L Normal 21.0-32.0 [facility] Comment on above: Performed By: #### L 501.5200, L100.0100, L500.2500, L501.2300 ####[facility] [address] [place], [address] Creatinine [Mass/Vol] 1.93 mg/dL High 0.70-1.20 [facility] Comment on above: Performed By: #### L 501.5200, L100.0100, L500.2500, L501.2300 ####[facility] [address] [place], [address] ECRCL 43.82 ml/min Low 50-250 [facility] Comment on above: Performed By: #### L 501.5200, L100.0100, L500.2500, L501.2300 ####[facility] [address] [place], [address] GAP 12 Normal 5-15 [facility] Comment on above: Performed By: #### L 501.5200, L100.0100, L500.2500, L501.2300 ####[facility] [address] [place], [address] GFR/1.73 sq M.predicted among non-blacks MDRD (S/P/Bld) [Vol rate/Area] 33 mL/min/{1.73_m2} Low >60 [facility] Comment on above: Result Comment: mL/m in/1.73m2 CKD-EPI Creatinine Equation (2020) Performed By: #### L 501.5200, L100.0100, L500.2500, L501.2300 ####[facility] [address] [place], [address] Glucose [Mass/Vol] 100 mg/dL High 70-99 [facility] Comment on above: Performed By: #### L 501.5200, L100.0100, L500.2500, L501.2300 ####[facility] [address] [place], [address] Potassium [Moles/Vol] 3.5 mmol/L Normal 3.3-5.1 [facility] Comment on above: Performed By: #### L 501.5200, L100.0100, L500.2500, L501.2300 ####[facility] [address] [place], [address] Sodium [Moles/Vol] 131 mmol/L Low 133-145 [facility] Comment on above: Performed By: #### L 501.5200, L100.0100, L500.2500, L501.2300 ####[facility] [address] [place], [address] Urea nitrogen [Mass/Vol] 30 mg/dL High 4-19 [facility] Comment on above: Performed By: #### L 501.5200, L100.0100, L500.2500, L501.2300 ####[facility] [address] [place], [address] CBC W/Diff, Automatedon 05-0 5-2024 Absolute Lymph 1.54 X10 3/uL Normal 0.83-4.51 [facility] Comment on above: Performed By: #### L 501.5200, L100.0100, L500.2500, L501.2300 ####[facility] [address] [place], [address] Absolute Neut 3.2 X10 3/uL Normal 2.0-7.7 [facility] Comment on above: Performed By: #### L 501.5200, L100.0100, L500.2500, L501.2300 ####[facility] [address] [place], [address] Basophils/100 WBC (Bld) 0.6 % Normal 0-1 [facility] Comment on above: Performed By: #### L 501.5200, L100.0100, L500.2500, L501.2300 ####[facility] [address] [place], [address] Eosinophils/100 WBC (Bld) 1.5 % Normal 0-5 [facility] Comment on above: Performed By: #### L 501.5200, L100.0100, L500.2500, L501.2300 ####[facility] [address] [place], [address] Erythrocyte distribution width (RBC) [Ratio] 15.2 % High 11.6-14.6 [facility] Comment on above: Performed By: #### L 501.5200, L100.0100, L500.2500, L501.2300 ####[facility] [address] [place], [address] Hematocrit (Bld) [Volume fraction] 27.2 % Low 37-47 [facility] Comment on above: Performed By: #### L 501.5200, L100.0100, L500.2500, L501.2300 ####[facility] [address] [place], [address] Hemoglobin (Bld) [Mass/Vol] 8.8 g/dL Low 12.0-15.0 [facility] Comment on above: Performed By: #### L 501.5200, L100.0100, L500.2500, L501.2300 ####[facility] [address] [place], [address] IG% 0.400 Normal 0.0-0.9 [facility] Comment on above: Result Comment: IG% - Immature Granulocytes (promyelocytes, myelocytes andmetamyelocytes) > 1% indicates that a LEFT SHIFT is Present. Performed By: #### L 501.5200, L100.0100, L500.2500, L501.2300 ####[facility] [address] [place], [address] Lymphocytes/100 WBC (Bld) 28.9 % Normal 19-41 [facility] Comment on above: Performed By: #### L 501.5200, L100.0100, L500.2500, L501.2300 ####[facility] [address] [place], [address] MCH (RBC) [Entitic mass] 24.4 pg Low 27.0-32.0 [facility] Comment on above: Performed By: #### L 501.5200, L100.0100, L500.2500, L501.2300 ####[facility] [address] [place], [address] MCHC (RBC) [Mass/Vol] 32.4 g/dL Normal 32-36 [facility] Comment on above: Performed By: #### L 501.5200, L100.0100, L500.2500, L501.2300 ####[facility] [address] [place], [address] MCV (RBC) [Entitic vol] 75.3 fL Low 81-99 [facility] Comment on above: Performed By: #### L 501.5200, L100.0100, L500.2500, L501.2300 ####[facility] [address] [place], [address] Monocytes/100 WBC (Bld) 9.4 % Normal 0-10 [facility] Comment on above: Performed By: #### L 501.5200, L100.0100, L500.2500, L501.2300 ####[facility] [address] [place], [address] Neutrophils/100 WBC (Bld) 59.2 % Normal 47-70 [facility] Comment on above: Performed By: #### L 501.5200, L100.0100, L500.2500, L501.2300 ####[facility] [address] [place], [address] Nucleated RBC (Bld) [#/Vol] 0 10*3/uL Normal 0-5 [facility] Comment on above: Performed By: #### L 501.5200, L100.0100, L500.2500, L501.2300 ####[facility] [address] [place], [address] Platelet mean volume (Bld) [Entitic vol] 9.3 fL Normal 6.2-12.0 [facility] Comment on above: Performed By: #### L 501.5200, L100.0100, L500.2500, L501.2300 ####[facility] [address] [place], [address] Platelets (Bld) [#/Vol] 396 10*3/uL Normal 150-450 [facility] Comment on above: Performed By: #### L 501.5200, L100.0100, L500.2500, L501.2300 ####[facility] [address] [place], [address] RBC (Bld) [#/Vol] 3.61 10*6/uL Low 4.2-5.4 [facility] Comment on above: Performed By: #### L 501.5200, L100.0100, L500.2500, L501.2300 ####[facility] [address] [place], [address] RDW SD 41.3 fl Normal 35.1-43.9 [facility] Comment on above: Performed By: #### L 501.5200, L100.0100, L500.2500, L501.2300 ####[facility] [address] [place], [address] WBC (Bld) [#/Vol] 5.3 10*3/uL Normal 4.4-11.0 [facility] Comment on above: Performed By: #### L 501.5200, L100.0100, L500.2500, L501.2300 ####[facility] [address] [place], [address] CDIFF (PCR)on 10-29-2024 CDIFF Is the patient recei ving laxatives? N New/unexplained onset of 3 or more stools in past 24 hrs? Y Pending 027 027 NAP1-B1 Presumptive Negative *for epidemiolologic???use C. Diff PCR Negative- No toxigenic C. Diff Detected Normal [facility] Comment on above: Performed By: #### M 100.6796 ####[facility] [address] [place], [address] ENTERIC PATHOGEN PANEL STOOL on 10-29-2024 EP PANEL CAMPYLOBACTER Not Detected Norovirus Not Detected Rotavirus Not Detected Salmonella Not Detected Shiga Toxin Not Detected Shigella sp. Not Detected VIBRIO Not Detected Yersinia Not Detected Normal [facility] Comment on above: Performed By: #### M 100.637 ####[facility] [address] [place], [address] Magnesiumon 10-29-2024 Magnesium [Mass/Vol] 1.5 mg/dL Normal 1.5-2.2 [facility] Comment on above: Performed By: #### L 501.5200, L100.0100, L500.2500, L501.2300 ####[facility] [address] [place], [address] Phosphoruson 10-29-2024 Phosphate [Mass/Vol] 4.0 mg/dL Normal 2.7-4.5 [facility] Comment on above: Performed By: #### L 501.5200, L100.0100, L500.2500, L501.2300 ####[facility] [address] [place], [address] Basic Metabolic Profile (BMP )on 10-28-2024 BUN/CRE 10.4 RATIO Normal 10-20 [facility] Comment on above: Performed By: #### L 100.0100, L501.5200, L500.2500 ####[facility] [address] [place], [address] Calcium [Mass/Vol] 10.5 mg/dL Normal 7.6-11.0 [facility] Comment on above: Performed By: #### L 100.0100, L501.5200, L500.2500 ####[facility] [address] [place], [address] Chloride [Moles/Vol] 81 mmol/L Low 98-108 [facility] Comment on above: Performed By: #### L 100.0100, L501.5200, L500.2500 ####[facility] [address] [place], [address] CO2 [Moles/Vol] 20.9 mmol/L Low 21.0-32.0 [facility] Comment on above: Performed By: #### L 100.0100, L501.5200, L500.2500 ####[facility] [address] [place], [address] Creatinine [Mass/Vol] 3.36 mg/dL High 0.70-1.20 [facility] Comment on above: Performed By: #### L 100.0100, L501.5200, L500.2500 ####[facility] [address] [place], [address] ECRCL 24.64 ml/min Low 50-250 [facility] Comment on above: Performed By: #### L 100.0100, L501.5200, L500.2500 ####[facility] [address] [place], [address] GAP 26 High 5-15 [facility] Comment on above: Performed By: #### L 100.0100, L501.5200, L500.2500 ####[facility] [address] [place], [address] GFR/1.73 sq M.predicted among non-blacks MDRD (S/P/Bld) [Vol rate/Area] 17 mL/min/{1.73_m2} Low >60 [facility] Comment on above: Result Comment: mL/m in/1.73m2 CKD-EPI Creatinine Equation (2020) Performed By: #### L 100.0100, L501.5200, L500.2500 ####[facility] [address] [place], [address] Glucose [Mass/Vol] 165 mg/dL High 70-99 [facility] Comment on above: Performed By: #### L 100.0100, L501.5200, L500.2500 ####[facility] [address] [place], [address] Potassium [Moles/Vol] 4.5 mmol/L Normal 3.3-5.1 [facility] Comment on above: Result Comment: Hemo lysis present, Results??could be affected.?? Performed By: #### L 100.0100, L501.5200, L500.2500 ####[facility] [address] [place], [address] Sodium [Moles/Vol] 127 mmol/L Low 133-145 [facility] Comment on above: Performed By: #### L 100.0100, L501.5200, L500.2500 ####[facility] [address] [place], [address] Urea nitrogen [Mass/Vol] 35 mg/dL High 4-19 [facility] Comment on above: Performed By: #### L 100.0100, L501.5200, L500.2500 ####[facility] [address] [place], [address] CBC W/Diff, Automatedon 05-0 -2024 Absolute Lymph 2.13 X10 3/uL Normal 0.83-4.51 [facility] Comment on above: Performed By: #### L 100.0100, L501.5200, L500.2500 ####[facility] [address] [place], [address] Absolute Neut 9.2 X10 3/uL High 2.0-7.7 [facility] Comment on above: Performed By: #### L 100.0100, L501.5200, L500.2500 ####[facility] [address] [place], [address] Basophils/100 WBC (Bld) 0.4 % Normal 0-1 [facility] Comment on above: Performed By: #### L 100.0100, L501.5200, L500.2500 ####[facility] [address] [place], [address] Eosinophils/100 WBC (Bld) 0.1 % Normal 0-5 [facility] Comment on above: Performed By: #### L 100.0100, L501.5200, L500.2500 ####[facility] [address] [place], [address] Erythrocyte distribution width (RBC) [Ratio] 15.5 % High 11.6-14.6 [facility] Comment on above: Performed By: #### L 100.0100, L501.5200, L500.2500 ####[facility] [address] [place], [address] Hematocrit (Bld) [Volume fraction] 38.3 % Normal 37-47 [facility] Comment on above: Performed By: #### L 100.0100, L501.5200, L500.2500 ####[facility] [address] [place], [address] Hemoglobin (Bld) [Mass/Vol] 12.2 g/dL Normal 12.0-15.0 [facility] Comment on above: Performed By: #### L 100.0100, L501.5200, L500.2500 ####[facility] [address] [place], [address] IG% 0.500 Normal 0.0-0.9 [facility] Comment on above: Result Comment: IG% - Immature Granulocytes (promyelocytes, myelocytes andmetamyelocytes) > 1% indicates that a LEFT SHIFT is Present. Performed By: #### L 100.0100, L501.5200, L500.2500 ####[facility] [address] [place], [address] Lymphocytes/100 WBC (Bld) 17.1 % Low 19-41 [facility] Comment on above: Performed By: #### L 100.0100, L501.5200, L500.2500 ####[facility] [address] [place], [address] MCH (RBC) [Entitic mass] 24.4 pg Low 27.0-32.0 [facility] Comment on above: Performed By: #### L 100.0100, L501.5200, L500.2500 ####[facility] [address] [place], [address] MCHC (RBC) [Mass/Vol] 31.9 g/dL Low 32-36 [facility] Comment on above: Performed By: #### L 100.0100, L501.5200, L500.2500 ####[facility] [address] [place], [address] MCV (RBC) [Entitic vol] 76.4 fL Low 81-99 [facility] Comment on above: Performed By: #### L 100.0100, L501.5200, L500.2500 ####[facility] [address] [place], [address] Monocytes/100 WBC (Bld) 7.7 % Normal 0-10 [facility] Comment on above: Performed By: #### L 100.0100, L501.5200, L500.2500 ####[facility] [address] [place], [address] Neutrophils/100 WBC (Bld) 74.2 % High 47-70 [facility] Comment on above: Performed By: #### L 100.0100, L501.5200, L500.2500 ####[facility] [address] [place], [address] Nucleated RBC (Bld) [#/Vol] 0 10*3/uL Normal 0-5 [facility] Comment on above: Performed By: #### L 100.0100, L501.5200, L500.2500 ####[facility] [address] [place], [address] Platelet mean volume (Bld) [Entitic vol] 10.1 fL Normal 6.2-12.0 [facility] Comment on above: Performed By: #### L 100.0100, L501.5200, L500.2500 ####[facility] [address] [place], [address] Platelets (Bld) [#/Vol] 675 10*3/uL High 150-450 [facility] Comment on above: Performed By: #### L 100.0100, L501.5200, L500.2500 ####[facility] [address] [place], [address] RBC (Bld) [#/Vol] 5.01 10*6/uL Normal 4.2-5.4 [facility] Comment on above: Performed By: #### L 100.0100, L501.5200, L500.2500 ####[facility] [address] [place], [address] RDW SD 41.5 fl Normal 35.1-43.9 [facility] Comment on above: Performed By: #### L 100.0100, L501.5200, L500.2500 ####[facility] [address] [place], [address] WBC (Bld) [#/Vol] 12.4 10*3/uL High 4.4-11.0 [facility] Comment on above: Performed By: #### L 100.0100, L501.5200, L500.2500 ####[facility] [address] [place], [address] Emergency Department Summary on 10-28-2024 Emergency Department Summary Normal [facility] H AND P Exam - Hospitaliston 10-28-2024 H&P Exam - Hospitalist Normal [facility] Magnesiumon 10-28-2024 Magnesium [Mass/Vol] 1.7 mg/dL Normal 1.5-2.2 [facility] Comment on above: Performed By: #### L 100.0100, L501.5200, L500.2500 ####[facility] [address] [place], [address] ALLIED HEALTHon 10-26-2024 ALLIED HEALTH HNO ID: [id number] Author: STEFANY CALVERT RN Service: Wound/Ostomy Author [...] x 1 1/4 Oval (Coloplast 2Pc Pouch #96403 Convex Wafer #[id number]) Placed Attached 2pc Pouch Over Over Stoma [...] Independent Recommended Supplies: Coloplast 2pc High Output #64785 Pouch attached to drainage bag Coloplast #88329 Convex Wafer Cut To 1 1/2 x 1 1/4 Oval Sheridan #[id number] Large Barrier Ring Sheridan Barrier Extenders # [id number] Please Advise Wound Care [phone] If You Have Difficulty Getting Supplies From Cart Room. Patient tolerated the change well. Supplies at bedside. If additional ostomy supplies are needed, please call [facility] [employer] ([phone]) for above mentioned supplies. If supplies are unavailable in [facility] [employer], please secure chat [facility] Wound Care Nurses or call extension [phone] to request more supplies. Normal [facility] CBC panel Auto (Bld)on 10-26 Erythrocyte distribution width (RBC) [Ratio] 14.7 % Normal 11.5-15.0 [facility] Comment on above: Order Comment: Speci men Type: BLOOD SPECIMEN Ordering Facility: [facility] Address: [address] [place] [address] Performed By: #### 5 7021-8 #### [facility] CLIA [id number] [address] [place] [address] [place] Hematocrit (Bld) [Volume fraction] 29.9 % Low 36.0-46.0 [facility] Comment on above: Order Comment: Speci men Type: BLOOD SPECIMEN Ordering Facility: [facility] Address: [address] [place] [address] Performed By: #### 5 7021-8 #### [facility] CLIA [id number] [address] [place] [address] [place] Hemoglobin (Bld) [Mass/Vol] 9.2 g/dL Low 11.5-15.5 [facility] Comment on above: Order Comment: Speci men Type: BLOOD SPECIMEN Ordering Facility: [facility] Address: [address] [place] [address] Performed By: #### 5 7021-8 #### [facility] CLIA [id number] [address] [place] [address] [place] MCH (RBC) [Entitic mass] 24.1 pg Low 26.0-34.0 [facility] Comment on above: Order Comment: Speci men Type: BLOOD SPECIMEN Ordering Facility: [facility] Address: [address] [place] [address] Performed By: #### 5 7021-8 #### [facility] CLIA [id number] [address] [place] [address] [place] MCHC (RBC) [Mass/Vol] 30.8 g/dL Normal 30.5-36.0 [facility] Comment on above: Order Comment: Speci men Type: BLOOD SPECIMEN Ordering Facility: [facility] Address: [address] [place] [address] Performed By: #### 5 7021-8 #### [facility] CLIA [id number] [address] [place] [address] [place] MCV (RBC) [Entitic vol] 78.5 fL Low 80.0-100.0 [facility] Comment on above: Order Comment: Speci men Type: BLOOD SPECIMEN Ordering Facility: [facility] Address: [address] [place] [place] [id number] Performed By: #### 5 7021-8 #### [facility] CLIA [id number] [address] [place] [address] [place] Nucleated RBC (Bld) [#/Vol] 10*3/uL Normal <0.01 [facility] Comment on above: Order Comment: Speci men Type: BLOOD SPECIMEN Ordering Facility: [facility] Address: [address] [place] [address] Performed By: #### 5 7021-8 #### [facility] CLIA [id number] [address] [place] [address] [place] Platelet mean volume (Bld) [Entitic vol] 8.9 fL Low 9.0-12.7 [facility] Comment on above: Order Comment: Speci men Type: BLOOD SPECIMEN Ordering Facility: [facility] Address: [address] [place] [address] Performed By: #### 5 7021-8 #### [facility] CLIA [id number] [address] [place] [address] [place] Platelets (Bld) [#/Vol] 371 10*3/uL Normal 150-400 [facility] Comment on above: Order Comment: Speci men Type: BLOOD SPECIMEN Ordering Facility: [facility] Address: [address] [place] [address] Performed By: #### 5 7021-8 #### [facility] CLIA [id number] [address] [place], [place] [address] [place] RBC (Bld) [#/Vol] 3.81 10*6/uL Low 3.90-5.20 [facility] Comment on above: Order Comment: Speci men Type: BLOOD SPECIMEN Ordering Facility: [facility] Address: [address] [place] [address] Performed By: #### 5 7021-8 #### [facility] CLIA [id number] [address] [place] [id number] [place] WBC (Bld) [#/Vol] 4.79 10*3/uL Normal 3.70-11.00 [facility] Comment on above: Order Comment: Speci men Type: BLOOD SPECIMEN Ordering Facility: [facility] Address: [address] [place] [address] Performed By: #### 5 7021-8 #### [facility] CLIA [id number] [address] [place] [id number] [place] CNDSon 10-26-2024 [facility] HNO ID: [id number] Author: WILLIS FINCH DO Service: Hospital Medicine [...] 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 diff negative Stool PCR negative Home Imodium dose was increased Ostomy care offered Output did lessen Patient will follow-up at [facility] with her surgeon Dr. Smith as well as transplant surgeon Dr. Devine Acute kidney injury Creatinine 2.8 in [facility] ED Likely secondary to GI losses Patient given IV fluids Creatinine normalized by discharge Hyponatremia Sodium 130 in [facility] ED Likely secondary to GI losses Patient given IV fluids Hypokalemia Potassium 3.3 in [facility] Likely secondary to GI losses Supplementation provided Rx for potassium chloride provided on discharge Left foot discoloration, ?gangrene Left toes are black, per patient this began while she was at [facility] Chart review indicates she had bilateral [...] These medications were sent to e- [id number] [place] [address] [address] (more content not included)... Normal [facility] Comprehensive metabolic 2000 panelon 10-26-2024 Albumin [Mass/Vol] 3.0 g/dL Low 3.2-5.0 [facility] Comment on above: Order Comment: Dora finch Type: BLOOD SPECIMEN Ordering Facility: [facility] Address: [address] [place] [address] Performed By: #### 5 7021-8 #### [facility] CLIA [id number] [address] [place] [address] [place] ALP [Catalytic activity/Vol] 125 U/L High 45-117 [facility] Comment on above: Order Comment: Dora finch Type: BLOOD SPECIMEN Ordering Facility: [facility] Address: [address] [place], [place] [address] Performed By: #### 5 7021-8 #### [facility] CLIA [id number] [address] [place] [address] [place] ALT [Catalytic activity/Vol] 16 U/L Normal 13-61 [facility] Comment on above: Order Comment: Dora finch Type: BLOOD SPECIMEN Ordering Facility: [facility] Address: [address] [place] [address] Result Comment: Resu lts may be falsely depressed after the administration of Sulfasalazine and/or Sulfapyridine. Performed By: #### 5 7021-8 #### [facility] CLIA [id number] [address] [place], [place] [address] [place] Anion gap [Moles/Vol] 9 mmol/L Normal 5-16 [facility] Comment on above: Order Comment: Speci men Type: BLOOD SPECIMEN Ordering Facility: [facility] Address: [address] [place] [address] Performed By: #### 5 7021-8 #### [facility] CLIA [id number] [address] [place] [address] [place] AST [Catalytic activity/Vol] 24 U/L Normal 8-34 [facility] Comment on above: Order Comment: Florii stef Type: BLOOD SPECIMEN Ordering Facility: [facility] Address: [address] [place] [address] Result Comment: Resu lts may be falsely depressed after the administration of Sulfasalazine and/or Sulfapyridine. Performed By: #### 5 7021-8 #### [facility] CLIA [id number] [address] [place] [address] [place] Bilirubin [Mass/Vol] 1.2 mg/dL High 0.2-1.0 [facility] Comment on above: Order Comment: Florii stef Type: BLOOD SPECIMEN Ordering Facility: [facility] Address: [address] [place] [address] Performed By: #### 5 7021-8 #### [facility] CLIA [id number] [address] [place] [address] [place] Calcium [Mass/Vol] 9.5 mg/dL Normal 8.5-10.5 [facility] Comment on above: Order Comment: Florii stef Type: BLOOD SPECIMEN Ordering Facility: [facility] Address: [address] [place] [address] Performed By: #### 5 7021-8 #### [facility] CLIA [id number] [address] [place], [place] [address] [place] Chloride [Moles/Vol] 94 mmol/L Low 98-107 [facility] Comment on above: Order Comment: Speci men Type: BLOOD SPECIMEN Ordering Facility: [facility] Address: [address] [place] [address] Performed By: #### 5 7021-8 #### [facility] CLIA [id number] [address] [place] [address] [place] CO2 [Moles/Vol] 30 mmol/L Normal 21-32 [facility] Comment on above: Order Comment: Speci men Type: BLOOD SPECIMEN Ordering Facility: [facility] Address: [address] [place] [address] Performed By: #### 5 7021-8 #### [facility] CLIA [id number] [address] [place] [address] [place] Creatinine [Mass/Vol] 0.92 mg/dL Normal 0.51-0.95 [facility] Comment on above: Order Comment: Speci men Type: BLOOD SPECIMEN Ordering Facility: [facility] Address: [address] [place] [address] Result Comment: Marissa ents receiving either N-Acetylcysteine (NAC) or Metamizole prior to venipuncture, may have falsely depressed results. Performed By: #### 5 7021-8 #### [facility] CLIA [id number] [address] [place] [address] [place] Creatinine and Glomerular filtration rate.predicted panel (S/P/Bld) 80 mL/min/1.73m??? Normal >=60 [facility] Comment on above: Order Comment: Speci men Type: BLOOD SPECIMEN Ordering Facility: [facility] Address: [address] [place] [address] Result Comment: Zeny mated Glomerular Filtration Rate [...] GFR. Performed By: #### 5 7021-8 #### [facility] CLIA [id number] [address] [place] [address] [place] Glucose [Mass/Vol] 100 mg/dL Normal 70-100 [facility] Comment on above: Order Comment: Dora finch Type: BLOOD SPECIMEN Ordering Facility: [facility] Address: [address] [place], [place] [id number] Result Comment: The [place] [employer] Association (ADA) provides guidance for cutoff [...] Standards of Medical Care in Diabetes 2016, [place] [employer]. Diabetes Care. 2016.39(Suppl 1). Results may be falsely elevated after the administration of Sulfapyridine. Results may be falsely depressed after the administration of Sulfasalazine. Performed By: #### 5 7021-8 #### [facility] CLIA [id number] [address] [place] [address] [place] Potassium [Moles/Vol] 3.4 mmol/L Low 3.5-5.1 [facility] Comment on above: Order Comment: Dora finch Type: BLOOD SPECIMEN Ordering Facility: [facility] Address: [address] [place] [address] Performed By: #### 5 7021-8 #### [facility] CLIA [id number] [address] [place] [address] [place] Protein [Mass/Vol] 7.3 g/dL Normal 6.0-8.5 [facility] Comment on above: Order Comment: Dora finch Type: BLOOD SPECIMEN Ordering Facility: [facility] Address: [address] [place] [address] Performed By: #### 5 7021-8 #### [facility] CLIA [id number] [address] [place], [place] [address] [place] Sodium [Moles/Vol] 133 mmol/L Low 136-145 [facility] Comment on above: Order Comment: Speci men Type: BLOOD SPECIMEN Ordering Facility: [facility] Address: [address] [place] [address] Performed By: #### 5 7021-8 #### [facility] CLIA [id number] [address] [place] [address] [place] Urea nitrogen [Mass/Vol] 8 mg/dL Normal 7-26 [facility] Comment on above: Order Comment: Speci men Type: BLOOD SPECIMEN Ordering Facility: [facility] Address: [address] [place] [address] Performed By: #### 5 7021-8 #### [facility] CLIA [id number] [address] [place] [address] [place] Magnesium SerPl-mCncon 10-26 Magnesium [Mass/Vol] 1.5 mg/dL Low 1.6-2.6 [facility] Comment on above: Order Comment: Speci men Type: BLOOD SPECIMEN Ordering Facility: [facility] Address: [address] [place] [address] Performed By: #### 2 4321-2 #### [facility] CLIA [id number] [address] [place] [address] [place] [facility]ALTHon 10-25-2024 [facility] HNO ID: [id number] Author: STEFANY CALVERT, NATHANAEL Service: Wound/Ostomy Author [...] nursing Recommended Supplies: Coloplast 2pc High Output #54895 Pouch attached to drainage bag Coloplast #47348 Convex Wafer Cut To 1 1/2 x 1 1/4 Oval Augustine #8815 Small Barrier Ring Augustine Barrier Extenders # [phone] Please Advise Wound Care [phone] If You Have Difficulty Getting Supplies From Cart Room. If additional ostomy supplies are needed, please call [facility] [employer] ([phone]) for above mentioned supplies. If supplies are unavailable in [facility] [employer], please secure chat [facility] Wound Care Nurses or call extension [phone] to request more supplies. [facility] ALLIED HEALTH HNO ID: [id number] Author: STEFANY CALVERT RN Service: Wound/Ostomy Author [...] Supplies Are Available Through Cart/Supply Room In [facility]. Recommended Supplies: Coloplast 2pc High Output #15131 Pouch attached to drainage bag Coloplast #38493 Flat Wafer Augustine #8815 Small Barrier Ring [place] Barrier Extenders # [phone] Please Advise Wound Care [phone] If You Have Difficulty Getting Supplies From Cart Room. Normal [facility] CBC panel Auto (Bld)on 10-25 Erythrocyte distribution width (RBC) [Ratio] 14.8 % Normal 11.5-15.0 [facility] Comment on above: Order Comment: Dora finch Type: BLOOD SPECIMEN Ordering Facility: [facility] Address: [address] [place] [address] Performed By: #### 5 7021-8 #### [facility] CLIA [id number] [address] [place] [address] [place] Hematocrit (Bld) [Volume fraction] 33.3 % Low 36.0-46.0 [facility] Comment on above: Order Comment: Dora finch Type: BLOOD SPECIMEN Ordering Facility: [facility] Address: [address] [place] [address] Performed By: #### 5 7021-8 #### [facility] CLIA [id number] [address] [place] [address] [place] Hemoglobin (Bld) [Mass/Vol] 10.3 g/dL Low 11.5-15.5 [facility] Comment on above: Order Comment: Dora finch Type: BLOOD SPECIMEN Ordering Facility: [facility] Address: [address] [place] [address] Performed By: #### 5 7021-8 #### [facility] CLIA [id number] [address] [place] [address] OF [facility] MCH (RBC) [Entitic mass] 24.0 pg Low 26.0-34.0 [facility] Comment on above: Order Comment: Speci men Type: BLOOD SPECIMEN Ordering Facility: [facility] Address: [address] [place] [address] Performed By: #### 5 7021-8 #### [facility] CLIA [id number] [address] [place] [address] [place] MCHC (RBC) [Mass/Vol] 30.9 g/dL Normal 30.5-36.0 [facility] Comment on above: Order Comment: Speci men Type: BLOOD SPECIMEN Ordering Facility: [facility] Address: [address] [place] [address] Performed By: #### 5 7021-8 #### [facility] [place] [id number] [address] [place] [address] [place] MCV (RBC) [Entitic vol] 77.6 fL Low 80.0-100.0 [facility] Comment on above: Order Comment: Speci men Type: BLOOD SPECIMEN Ordering Facility: [facility] Address: [address] [place] [address] Performed By: #### 5 7021-8 #### [facility] [place] [id number] [address] [place] [address] [place] Nucleated RBC (Bld) [#/Vol] 10*3/uL Normal <0.01 [facility] Comment on above: Order Comment: Speci men Type: BLOOD SPECIMEN Ordering Facility: [facility] Address: [address] [place] [address] Performed By: #### 5 7021-8 #### [facility] [place] [id number] [address] [place] [address] [place] Platelet mean volume (Bld) [Entitic vol] 9.3 fL Normal 9.0-12.7 [facility] Comment on above: Order Comment: Speci men Type: BLOOD SPECIMEN Ordering Facility: [facility] Address: [address] [place] [id number] Performed By: #### 5 7021-8 #### [facility] CLIA [id number] [address] [place], [place] [address] [facility] Platelets (Bld) [#/Vol] 364 10*3/uL Normal 150-400 [facility] Comment on above: Order Comment: Speci men Type: BLOOD SPECIMEN Ordering Facility: [facility] Address: [address] [place], [place] [address] Performed By: #### 5 7021-8 #### [facility] CLIA [id number] [address] [place] [address] RBC (Bld) [#/Vol] 4.29 10*6/uL Normal 3.90-5.20 [facility] Comment on above: Order Comment: Speci men Type: BLOOD SPECIMEN Ordering Facility: [facility] Address: [address] [place] [address] Performed By: #### 5 7021-8 #### [facility] CLIA [id number] [address] [place] [address] [place] WBC (Bld) [#/Vol] 6.18 10*3/uL Normal 3.70-11.00 [facility] Comment on above: Order Comment: Speci men Type: BLOOD SPECIMEN Ordering Facility: [facility] Address: [facility] [place] [id number] Performed By: #### 5 7021-8 #### [facility] CLIA [id number] [address] [place], [place] [address] [facility] Comprehensive metabolic 2000 panelon 10-25-2024 Albumin [Mass/Vol] 3.0 g/dL Low 3.2-5.0 [facility] Comment on above: Order Comment: Speci men Type: BLOOD SPECIMEN Ordering Facility: [facility] Address: [facility] [place] [address] Performed By: #### 5 7021-8 #### [facility] CLIA [id number] [address] [place] [address] [place] ALP [Catalytic activity/Vol] 137 U/L High 45-117 [facility] Comment on above: Order Comment: Speci men Type: BLOOD SPECIMEN Ordering Facility: [facility] Address: [address] [place] [address] Performed By: #### 5 7021-8 #### [facility] CLIA [id number] [address] [place] [address] [place] ALT [Catalytic activity/Vol] 14 U/L Normal 13-61 [facility] Comment on above: Order Comment: Speci men Type: BLOOD SPECIMEN Ordering Facility: [facility] Address: [address] [place] [address] Result Comment: Resu lts may be falsely depressed after the administration of Sulfasalazine and/or Sulfapyridine. Performed By: #### 5 7021-8 #### [facility] CLIA [id number] [address] [place] [address] [place] Anion gap [Moles/Vol] 9 mmol/L Normal 5-16 [facility] Comment on above: Order Comment: Speci men Type: BLOOD SPECIMEN Ordering Facility: [facility] Address: [address] [place] [address] Performed By: #### 5 7021-8 #### [facility] CLIA [id number] [address] [place] [address] [place] AST [Catalytic activity/Vol] 16 U/L Normal 8-34 [facility] Comment on above: Order Comment: Speci men Type: BLOOD SPECIMEN Ordering Facility: [facility] Address: [address] [place] [address] Result Comment: Resu lts may be falsely depressed after the administration of Sulfasalazine and/or Sulfapyridine. Performed By: #### 5 7021-8 #### [facility] CLIA [id number] [address] [place] [address] [place] Bilirubin [Mass/Vol] 1.3 mg/dL High 0.2-1.0 [facility] Comment on above: Order Comment: Speci men Type: BLOOD SPECIMEN Ordering Facility: [facility] Address: [address] [place] [address] Performed By: #### 5 7021-8 #### [facility] CLIA [id number] [address] [place] [address] [place] Calcium [Mass/Vol] 9.6 mg/dL Normal 8.5-10.5 [facility] Comment on above: Order Comment: Speci men Type: BLOOD SPECIMEN Ordering Facility: [facility] Address: [address] [place] [address] Performed By: #### 5 7021-8 #### [facility] CLIA [id number] [address] [place] [address] [place] Chloride [Moles/Vol] 93 mmol/L Low 98-107 [facility] Comment on above: Order Comment: Speci men Type: BLOOD SPECIMEN Ordering Facility: [facility] Address: [address] [place] [address] Performed By: #### 5 7021-8 #### [facility] CLIA [id number] [address] [place] [address] [place] CO2 [Moles/Vol] 33 mmol/L High 21-32 [facility] Comment on above: Order Comment: Speci men Type: BLOOD SPECIMEN Ordering Facility: [facility] Address: [address] [place] [address] Performed By: #### 5 7021-8 #### [facility] CLIA [id number] [address] [place] [address] [place] Creatinine [Mass/Vol] 1.00 mg/dL High 0.51-0.95 [facility] Comment on above: Order Comment: Speci men Type: BLOOD SPECIMEN Ordering Facility: [facility] Address: [address] [place] [address] Result Comment: Marissa ents receiving either N-Acetylcysteine (NAC) or Metamizole prior to venipuncture, may have falsely depressed results. Performed By: #### 5 7021-8 #### [facility] CLIA [id number] [address] [place] [address] [place] Creatinine and Glomerular filtration rate.predicted panel (S/P/Bld) 73 mL/min/1.73m??? Normal >=60 [facility] Comment on above: Order Comment: Dora finch Type: BLOOD SPECIMEN Ordering Facility: [facility] Address: [address] [place] [address] Result Comment: Zeny mated Glomerular Filtration Rate [...] GFR. Performed By: #### 5 7021-8 #### [facility] CLIA [id number] [address] [place] [address] [place] Glucose [Mass/Vol] 89 mg/dL Normal 70-100 [facility] Comment on above: Order Comment: Dora finch Type: BLOOD SPECIMEN Ordering Facility: [facility] Address: [address] [place] [address] Result Comment: The [place] Diabetes Association (ADA) provides guidance for cutoff [...] Standards of Medical Care in Diabetes 2016, [place] [employer]. Diabetes Care. 2016.39(Suppl 1). Results may be falsely elevated after the administration of Sulfapyridine. Results may be falsely depressed after the administration of Sulfasalazine. Performed By: #### 5 7021-8 #### [facility] CLIA [id number] [address] [place] [address] [place] Potassium [Moles/Vol] 3.4 mmol/L Low 3.5-5.1 [facility] Comment on above: Order Comment: Speci men Type: BLOOD SPECIMEN Ordering Facility: [facility] Address: [address] [place] [address] Performed By: #### 5 7021-8 #### [facility] CLIA [id number] [address] [place] [address] [place] Protein [Mass/Vol] 7.7 g/dL Normal 6.0-8.5 [facility] Comment on above: Order Comment: Speci men Type: BLOOD SPECIMEN Ordering Facility: [facility] Address: [address] [place] [address] Performed By: #### 5 7021-8 #### [facility] CLIA [id number] [address] [place] [address] [place] Sodium [Moles/Vol] 135 mmol/L Low 136-145 [facility] Comment on above: Order Comment: Speci men Type: BLOOD SPECIMEN Ordering Facility: [facility] Address: [address] [place] [address] Performed By: #### 5 7021-8 #### [facility] CLIA [id number] [address] [place] [address] [place] Urea nitrogen [Mass/Vol] 11 mg/dL Normal 7-26 [facility] Comment on above: Order Comment: Speci men Type: BLOOD SPECIMEN Ordering Facility: [facility] Address: [address] [place] [address] Performed By: #### 5 7021-8 #### [facility] CLIA [id number] [address] [place] [address] [place] Magnesium SerPl-mCncon 10-25 Magnesium [Mass/Vol] 1.7 mg/dL Normal 1.6-2.6 [facility] Comment on above: Order Comment: Speci men Type: BLOOD SPECIMEN Ordering Facility: [facility] Address: [address] [place] [address] Performed By: #### 5 7021-8 #### [facility] CLIA [id number] [address] [place] [id number] [place] CBC panel Auto (Bld)on 10-24 Erythrocyte distribution width (RBC) [Ratio] 14.8 % Normal 11.5-15.0 [facility] Comment on above: Order Comment: Speci men Type: BLOOD SPECIMENOrdering Facility: [facility] Address: [address] [place] [address] Performed By: #### 5 8410-2 ####[facility]ORYCLIA [id number] [address] OF [facility] Hematocrit (Bld) [Volume fraction] 32.6 % Low 36.0-46.0 [facility] Comment on above: Order Comment: Speci men Type: BLOOD SPECIMENOrdering Facility: [facility] Address: [address] [place] [address] Performed By: #### 5 8410-2 ####[facility]ORYCLIA [id number] [address] [place] Hemoglobin (Bld) [Mass/Vol] 10.3 g/dL Low 11.5-15.5 [facility] Comment on above: Order Comment: Speci men Type: BLOOD SPECIMENOrdering Facility: [facility] Address: [address] [place] [address] Performed By: #### 5 8410-2 ####[facility]ORYCLIA [id number] [address] [place] MCH (RBC) [Entitic mass] 24.1 pg Low 26.0-34.0 [facility] Comment on above: Order Comment: Speci men Type: BLOOD SPECIMENOrdering Facility: [facility] Address: [address] [place] [address] Performed By: #### 5 8410-2 ####[facility]ORYCLIA [id number] [address] [place] MCHC (RBC) [Mass/Vol] 31.6 g/dL Normal 30.5-36.0 [facility] Comment on above: Order Comment: Speci men Type: BLOOD SPECIMENOrdering Facility: [facility] Address: [facility] [place] [address] Performed By: #### 5 8410-2 ####[facility]ORYCLIA [id number] [place] [id number] [place] MCV (RBC) [Entitic vol] 76.2 fL Low 80.0-100.0 [facility] Comment on above: Order Comment: Speci men Type: BLOOD SPECIMENOrdering Facility: [facility] Address: [address] [place] [address] Performed By: #### 5 8410-2 ####[facility]ORYCLIA [id number] [place] [address] [place] Nucleated RBC (Bld) [#/Vol] 10*3/uL Normal <0.01 [facility] Comment on above: Order Comment: Speci men Type: BLOOD SPECIMENOrdering Facility: [facility] Address: [address] [place] [address] Performed By: #### 5 8410-2 ####[facility]ORYCLIA [id number] [place] [address] [place] Platelet mean volume (Bld) [Entitic vol] 8.7 fL Low 9.0-12.7 [facility] Comment on above: Order Comment: Speci men Type: BLOOD SPECIMENOrdering Facility: [facility] Address: [address] [place] [address] Performed By: #### 5 8410-2 ####[facility]ORYCLIA [id number] [place] [address] [place] Platelets (Bld) [#/Vol] 408 10*3/uL High 150-400 [facility] Comment on above: Order Comment: Speci men Type: BLOOD SPECIMENOrdering Facility: [facility] Address: [address] [place] [address] Performed By: #### 5 8410-2 ####[facility]ATORYCLIA [id number] [place] [id number] [facility] [place] RBC (Bld) [#/Vol] 4.28 10*6/uL Normal 3.90-5.20 [facility] Comment on above: Order Comment: Speci men Type: BLOOD SPECIMENOrdering Facility: [facility] Address: [address] [place] [address] Performed By: #### 5 8410-2 ####[facility]ORYCLIA [id number] [address] WBC (Bld) [#/Vol] 6.06 10*3/uL Normal 3.70-11.00 [facility] Comment on above: Order Comment: Speci men Type: BLOOD SPECIMENOrdering Facility: [facility] Address: [address] [place] [address] Performed By: #### 5 8410-2 ####[facility]ATORYCLIA [id number] [place] [id number] [facility] Comprehensive metabolic 2000 panelon 10-24-2024 Albumin [Mass/Vol] 3.1 g/dL Low 3.2-5.0 [facility] Comment on above: Order Comment: Speci men Type: BLOOD SPECIMENOrdering Facility: [facility] Address: [address] [place] [address] Performed By: #### 1 9123-9, 10136-2 ####[facility]ORYCLIA [id number] [place] [address] [place] ALP [Catalytic activity/Vol] 131 U/L High 45-117 [facility] Comment on above: Order Comment: Speci men Type: BLOOD SPECIMENOrdering Facility: [facility] Address: [address] [place] [address] Performed By: #### 1 9123-9, 51639-7 ####[facility]ATORYCLIA [id number] [place] [id number] [place] ALT [Catalytic activity/Vol] 15 U/L Normal 13-61 [facility] Comment on above: Order Comment: Speci men Type: BLOOD SPECIMENOrdering Facility: [facility] Address: [address] [place] [address] Result Comment: Resu lts may be falsely depressed after the administration of Sulfasalazine and/or Sulfapyridine. Performed By: #### 1 9123-9, 56105-8 ####[facility]ATORYCLIA [id number] [place] [id number] [place] Anion gap [Moles/Vol] 10 mmol/L Normal 5-16 [facility] Comment on above: Order Comment: Speci men Type: BLOOD SPECIMENOrdering Facility: [facility] Address: [address] [place] [address] Performed By: #### 1 9123-9, 97968-1 ####[facility]ATORYCLIA [id number] [place] [address] [place] AST [Catalytic activity/Vol] 12 U/L Normal 8-34 [facility] Comment on above: Order Comment: Speci men Type: BLOOD SPECIMENOrdering Facility: [facility] Address: [address] [place] [address] Result Comment: Resu lts may be falsely depressed after the administration of Sulfasalazine and/or Sulfapyridine. Performed By: #### 1 9123-9, 36537-9 ####[facility]ATORYCLIA [id number] [place] [address] [place] Bilirubin [Mass/Vol] 1.2 mg/dL High 0.2-1.0 [facility] Comment on above: Order Comment: Speci men Type: BLOOD SPECIMENOrdering Facility: [facility] Address: [address] [place] [address] Performed By: #### 1 9123-9, 81165-7 ####[facility]ORATORYCLIA [id number] [place] [id number] [place] Calcium [Mass/Vol] 9.6 mg/dL Normal 8.5-10.5 [facility] Comment on above: Order Comment: Speci men Type: BLOOD SPECIMENOrdering Facility: [facility] Address: [address] [place] [address] Performed By: #### 1 9123-9, 33573-0 ####[facility]ORATORYCLIA [id number] [place] [id number] [place] Chloride [Moles/Vol] 92 mmol/L Low 98-107 [facility] Comment on above: Order Comment: Speci men Type: BLOOD SPECIMENOrdering Facility: [facility] Address: [address] [place] [address] Performed By: #### 1 9123-9, 71560-2 ####[facility]ORATORYCLIA [id number] [place] [id number] [place] CO2 [Moles/Vol] 31 mmol/L Normal 21-32 [facility] Comment on above: Order Comment: Speci men Type: BLOOD SPECIMENOrdering Facility: [facility] Address: [address] [place] [address] Performed By: #### 1 9123-9, 84345-0 ####[facility] LABORATORYCLIA [id number] [place] [address] [place] Creatinine [Mass/Vol] 1.04 mg/dL High 0.51-0.95 [facility] Comment on above: Order Comment: Speci men Type: BLOOD SPECIMENOrdering Facility: [facility] Address: [address] [place] [address] Result Comment: Marissa ents receiving either N-Acetylcysteine (NAC) or Metamizole prior to venipuncture, may have falsely depressed results. Performed By: #### 1 9123-9, 77962-4 ####[facility] LABORATORYCLIA [id number] [place] [address] [place] Creatinine and Glomerular filtration rate.predicted panel (S/P/Bld) 69 mL/min/1.73m??? Normal >=60 [facility] Comment on above: Order Comment: Speci men Type: BLOOD SPECIMENOrdering Facility: [facility] Address: [address] [place] [address] Result Comment: Zeny mated Glomerular Filtration Rate [...] actual GFR. Performed By: #### 1 9123-9, 72510-3 ####[facility] LABORATORYCLIA [id number] [place] [address] [place] Glucose [Mass/Vol] 101 mg/dL High 70-100 [facility] Comment on above: Order Comment: Dora finch Type: BLOOD SPECIMENOrdering Facility: [facility] Address: [address] [place] [address] Result Comment: The [place] Diabetes Association (ADA) provides guidance for cutoff [...] Standards of Medical Care in Diabetes 2016, [place] Diabetes Association. Diabetes Care. 2016.39(Suppl 1). Results may be falsely elevated after the administration of Sulfapyridine. Results may be falsely depressed after the administration of Sulfasalazine. Performed By: #### 1 9123-9, 48766-6 ####[facility] LABORATORYCLIA [id number] [place] [id number] [place] Potassium [Moles/Vol] 3.4 mmol/L Low 3.5-5.1 [facility] Comment on above: Order Comment: Dora finch Type: BLOOD SPECIMENOrdering Facility: [facility] Address: [address] [place] [address] Performed By: #### 1 9123-9, ####[facility] LABORATORYCLIA [id number] [place] [id number] [place] Protein [Mass/Vol] 7.5 g/dL Normal 6.0-8.5 [facility] Comment on above: Order Comment: Speci men Type: BLOOD SPECIMENOrdering Facility: [facility] Address: [address] [place] [address] Performed By: #### 1 9123-9, ####[facility] LABORATORYCLIA [id number] [place] [id number] [place] Sodium [Moles/Vol] 133 mmol/L Low 136-145 [facility] Comment on above: Order Comment: Speci men Type: BLOOD SPECIMENOrdering Facility: [facility] Address: [address] [place] [address] Performed By: #### 1 9123-9, ####[facility] [facility]ORYCLIA [id number] [place] [id number] [place] Urea nitrogen [Mass/Vol] 10 mg/dL Normal 7-26 [facility] Comment on above: Order Comment: Speci men Type: BLOOD SPECIMENOrdering Facility: [facility] Address: [address] [place] [address] Performed By: #### 1 9123-9, ####[facility] LABORATORYCLIA [id number] [place] [id number] [place] Magnesium SerPl-mCncon 10-24 Magnesium [Mass/Vol] 1.8 mg/dL Normal 1.6-2.6 [facility] Comment on above: Order Comment: Speci men Type: BLOOD SPECIMENOrdering Facility: [facility] Address: [address] [place] [address] Performed By: #### 1 9123-9, 35140-2 ####[facility] LABORATORYCLIA [id number] [place] [id number] [place] NUTRITIONon 10-24-2024 NUTRITION HNO ID: [id number] Author: LELIA RAMEY RD Service: ? Author [...] needs: 1849 - 2049 Calorie Calculation Method: Hereford-St. Jeor (with activity factor) Estimated protein needs [...] October 24, 2024 TIME: 1:56 PM Normal [facility] CBC panel Auto (Bld)on 10-23 Erythrocyte distribution width (RBC) [Ratio] 14.8 % Normal 11.5-15.0 [facility] Comment on above: Order Comment: Speci men Type: BLOOD SPECIMENOrdering Facility: [facility] Address: [address] [place] [address] Performed By: #### 5 8410-2 ####[facility] LABORATORYCLIA [id number] [place] [address] [place] Hematocrit (Bld) [Volume fraction] 30.5 % Low 36.0-46.0 [facility] Comment on above: Order Comment: Speci men Type: BLOOD SPECIMENOrdering Facility: [facility] Address: [address] [place] [address] Performed By: #### 5 8410-2 ####[facility] LABORATORYCLIA [id number] [place] [address] [place] Hemoglobin (Bld) [Mass/Vol] 9.4 g/dL Low 11.5-15.5 [facility] Comment on above: Order Comment: Speci men Type: BLOOD SPECIMENOrdering Facility: [facility] Address: [address] [place] [address] Performed By: #### 5 8410-2 ####[facility] LABORATORYCLIA [id number] [place] [address] [place] MCH (RBC) [Entitic mass] 24.0 pg Low 26.0-34.0 [facility] Comment on above: Order Comment: Speci men Type: BLOOD SPECIMENOrdering Facility: [facility] Address: [address] [place] [address] Performed By: #### 5 8410-2 ####[facility] LABORATORYCLIA [id number] [address] [place] MCHC (RBC) [Mass/Vol] 30.8 g/dL Normal 30.5-36.0 [facility] Comment on above: Order Comment: Speci men Type: BLOOD SPECIMENOrdering Facility: [facility] Address: [address] [place] [address] Performed By: #### 5 8410-2 ####[facility] LABORATORYCLIA [id number] [address] [place] MCV (RBC) [Entitic vol] 77.8 fL Low 80.0-100.0 [facility] Comment on above: Order Comment: Speci men Type: BLOOD SPECIMENOrdering Facility: [facility] Address: [address] [place] [address] Performed By: #### 5 8410-2 ####[facility] LABORATORYCLIA [id number] [address] [place] Nucleated RBC (Bld) [#/Vol] 10*3/uL Normal <0.01 [facility] Comment on above: Order Comment: Speci men Type: BLOOD SPECIMENOrdering Facility: [facility] Address: [address] [place] [address] Performed By: #### 5 8410-2 ####[facility] LABORATORYCLIA [id number] [address] [place] Platelet mean volume (Bld) [Entitic vol] 8.6 fL Low 9.0-12.7 [facility] Comment on above: Order Comment: Speci men Type: BLOOD SPECIMENOrdering Facility: [facility] Address: [address] [place] [address] Performed By: #### 5 8410-2 ####[facility] LABORATORYCLIA [id number] [place] [address] [place] Platelets (Bld) [#/Vol] 413 10*3/uL High 150-400 [facility] Comment on above: Order Comment: Speci men Type: BLOOD SPECIMENOrdering Facility: [facility] Address: [address] [place], [place] [address] Performed By: #### 5 8410-2 ####[facility] LABORATORYCLIA [id number] [place] [address] [place] RBC (Bld) [#/Vol] 3.92 10*6/uL Normal 3.90-5.20 [facility] Comment on above: Order Comment: Speci men Type: BLOOD SPECIMENOrdering Facility: [facility] Address: [address] [place], [place] [address] Performed By: #### 5 8410-2 ####[facility] LABORATORYCLIA [id number] [place] [id number] [place] WBC (Bld) [#/Vol] 5.26 10*3/uL Normal 3.70-11.00 [facility] Comment on above: Order Comment: Speci men Type: BLOOD SPECIMENOrdering Facility: [facility] Address: [address] [place], [place] [address] Performed By: #### 5 8410-2 ####[facility] LABORATORYCLIA [id number] [place] [id number] [facility] CONSULTon 10-23-2024 CONSULT HNO ID: [id number] Author: YOHANA MCCARTHY III, DPM Service: Podiatry [...] and polysubstance abuse who originally presented to [facility] with severe abdominal pain and found to [...] feet. No x-rays have been done today. Technology Engineer consult regarding management of bilateral foot gangrene. Originally presented to hospital with persistent stools. She had recent vascular follow-up at the end of August. PAST MEDICAL HISTORY Diagnosis Date Attempted suicide (HCC) polysubstance Bipolar depression (HCC) [facility] Camelia Whyte Gestational diabetes mellitus in ([facility]) Impaired fasting blood sugar 06/2015 a1c [...] Urine Negative 08/30/2024 Nitrites Negative 08/30/2024 Specific [place], Ur 1.016 08/30/2024 Protein, Urine 1+ 08/30/2024 Leukest Negative 08/30/2024 WBC, Urine 0-5 /HPF 08/30/2024 Bacteria Negative 08/30/2024 SED RATE/CRP: Sed Rate, Westergren 2 02/05/2022 CRP 10.4 09/03/2024 CRP 20.2 08/31/2024 CRP 18.1 (more content not included)... [facility] CONSULT PROGon 10-23-2024 CONSULT PROG HNO ID: [id number] Author: ALOK GIVENS MD Service: Gastroenterology Author [...] primary team -Outpatient GI follow-up, referral line [phone] -Please call with questions, nothing further to add from a GI standpoint at this time GI will sign off at this time. Please don't hesitate to call us back. Please contact on-call GI staff physician with any questions or concerns. SIGNATURE: Rakesh Davis APRN.BED RUBBER DATE: October 23, 2024 TIME: 11:56 AM (Some elements copied from my note, dated 10/22, which have been reviewed and updated where appropriate. All reflect current medical decision making from today, 10/23.) Normal [facility] Comprehensive metabolic 2000 panelon 10-23-2024 Albumin [Mass/Vol] 2.8 g/dL Low 3.2-5.0 [facility] Comment on above: Order Comment: Speci men Type: BLOOD SPECIMENOrdering Facility: [facility] Address: [address] [place] [address] Performed By: #### 1 9123-9, 30350-2 ####[facility] LABORATORYCLIA [id number] [place] [address] [place] ALP [Catalytic activity/Vol] 118 U/L High 45-117 [facility] Comment on above: Order Comment: Speci men Type: BLOOD SPECIMENOrdering Facility: [facility] Address: [address] [place] [address] Performed By: #### 1 9123-9, 65609-0 ####[facility] LABORATORYCLIA [id number] [address] [place] ALT [Catalytic activity/Vol] 15 U/L Normal 13-61 [facility] Comment on above: Order Comment: Speci men Type: BLOOD SPECIMENOrdering Facility: [facility] Address: [address] [place] [address] Result Comment: Resu lts may be falsely depressed after the administration of Sulfasalazine and/or Sulfapyridine. Performed By: #### 1 9123-9, 92905-4 ####[facility] LABORATORYCLIA [id number] [place] [address] [place] Anion gap [Moles/Vol] 10 mmol/L Normal 5-16 [facility] Comment on above: Order Comment: Speci men Type: BLOOD SPECIMENOrdering Facility: [facility] Address: [address] [place] [address] Performed By: #### 1 9123-9, 08600-3 ####[facility] LABORATORYCLIA [id number] [place] [address] [place] AST [Catalytic activity/Vol] 14 U/L Normal 8-34 [facility] Comment on above: Order Comment: Florii men Type: BLOOD SPECIMENOrdering Facility: [facility] Address: [address] [place] [address] Result Comment: Resu lts may be falsely depressed after the administration of Sulfasalazine and/or Sulfapyridine. Performed By: #### 1 9123-9, 93321-0 ####[facility] LABORATORYCLIA [id number] [place] [address] [place] Bilirubin [Mass/Vol] 0.9 mg/dL Normal 0.2-1.0 [facility] Comment on above: Order Comment: Florii men Type: BLOOD SPECIMENOrdering Facility: [facility] Address: [address] [place] [address] Performed By: #### 1 9123-9, 45269-6 ####[facility] LABORATORYCLIA [id number] [place] [address] [place] Calcium [Mass/Vol] 9.1 mg/dL Normal 8.5-10.5 [facility] Comment on above: Order Comment: Speci men Type: BLOOD SPECIMENOrdering Facility: [facility] Address: [address] [place] [address] Performed By: #### 1 9123-9, 34789-7 ####[facility] LABORATORYCLIA [id number] [place] [address] [place] Chloride [Moles/Vol] 98 mmol/L Normal 98-107 [facility] Comment on above: Order Comment: Speci men Type: BLOOD SPECIMENOrdering Facility: [facility] Address: [address] [place] [address] Performed By: #### 1 9123-9, 60025-8 ####[facility] LABORATORYCLIA [id number] [place] [address] [place] CO2 [Moles/Vol] 29 mmol/L Normal 21-32 [facility] Comment on above: Order Comment: Speci men Type: BLOOD SPECIMENOrdering Facility: [facility] Address: [address] [place] [address] Performed By: #### 1 9123-9, 82132-0 ####[facility] LABORATORYCLIA [id number] [address] [place] OF [facility] Creatinine [Mass/Vol] 0.90 mg/dL Normal 0.51-0.95 [facility] Comment on above: Order Comment: Speci men Type: BLOOD SPECIMENOrdering Facility: [facility] Address: [address] [place] [address] Result Comment: Marissa ents receiving either N-Acetylcysteine (NAC) or Metamizole prior to venipuncture, may have falsely depressed results. Performed By: #### 1 9123-9, 36451-7 ####[facility] LABORATORYCLIA [id number] [address] [place] Creatinine and Glomerular filtration rate.predicted panel (S/P/Bld) 83 mL/min/1.73m??? Normal >=60 [facility] Comment on above: Order Comment: Speci men Type: BLOOD SPECIMENOrdering Facility: [facility] Address: [address] [place] [address] Result Comment: Zeny mated Glomerular Filtration Rate [...] actual GFR. Performed By: #### 1 9123-9, 58400-2 ####[facility] LABORATORYCLIA [id number] [place] [address] [place] Glucose [Mass/Vol] 98 mg/dL Normal 70-100 [facility] Comment on above: Order Comment: Speci men Type: BLOOD SPECIMENOrdering Facility: [facility] Address: [address] [place] [address] Result Comment: The [place] Diabetes Association (ADA) provides guidance for cutoff [...] Standards of Medical Care in Diabetes 2016, [place] Diabetes Association. Diabetes Care. 2016.39(Suppl 1). Results may be falsely elevated after the administration of Sulfapyridine. Results may be falsely depressed after the administration of Sulfasalazine. Performed By: #### 1 9123-9, ####[facility] LABORATORYCLIA [id number] [place] [id number] [place] Potassium [Moles/Vol] 3.4 mmol/L Low 3.5-5.1 [facility] Comment on above: Order Comment: Dora finch Type: BLOOD SPECIMENOrdering Facility: [facility] Address: [address] [place] [address] Performed By: #### 1 9123-9, 27290-0 ####[facility] LABORATORYCLIA [id number] [place] [address] [place] Protein [Mass/Vol] 6.9 g/dL Normal 6.0-8.5 [facility] Comment on above: Order Comment: Speci men Type: BLOOD SPECIMENOrdering Facility: [facility] Address: [address] [place] [address] [place] [id number] Performed By: #### 1 9123-9, 91449-9 ####[facility] LABORATORYCLIA [id number] [place] [id number] [place] Sodium [Moles/Vol] 137 mmol/L Normal 136-145 [facility] Comment on above: Order Comment: Speci men Type: BLOOD SPECIMENOrdering Facility: [facility] Address: [address] [place], [place] [address] Performed By: #### 1 9123-9, 83239-4 ####[facility] LABORATORYCLIA [id number] [place] [address] [place] Urea nitrogen [Mass/Vol] 7 mg/dL Normal 7-26 [facility] Comment on above: Order Comment: Speci men Type: BLOOD SPECIMENOrdering Facility: [facility] Address: [address] [place], [place] [address] Performed By: #### 1 9123-9, 85815-9 ####[facility] LABORATORYCLIA [id number] [place] [address] [place] Magnesium SerPl-mCncon 10-23 Magnesium [Mass/Vol] 1.9 mg/dL Normal 1.6-2.6 [facility] Comment on above: Order Comment: Speci men Type: BLOOD SPECIMENOrdering Facility: [facility] Address: [address] [place] [address] Performed By: #### 1 9123-9, 00273-8 ####[facility] LABORATORYCLIA [id number] [place] [id number] [place] XR FOOT 3V [...] of osteomyelitis. Mild distal soft tissue swelling. Apartment Assistant Manager: PSCB Transcribe Date/Time: Oct 23 2024 4:00P Dictated by : HOMA EDMONDSON MD This examination was interpreted and the report reviewed and electronically signed by: HOMA EDMONDSON MD on Oct 23 2024 4:03PM EST [id number] [facility] ALLIED HEALTHon 10-22-2024 ALLIED HEALTH HNO ID: [id number] Author: STEFANY CALVERT RN Service: Wound/Ostomy Author [...] Applied And Attached To Drainage Bag Barrier Exterior Work Helper Strips Applied To Edges Patient Educated On Need To Watch Drainage Tubing To Ensure Its Draining And Pouch Doesn't Get Too Full And Starts Leaking. Assessment Stoma Type: End-loop jejunostomy Size/Diameter: 38mm Location: LLQ Protrusion: Flush, Retracted, Etc. Mucosal condition and color: [place] Red Moist Mucocutaneous junction: Intact Character of output: Liquid Yellow Brown Emptying frequency per day: per floor nursing Current pouching system: Coloplast 2pc High Output #47898 Pouch attached to drainage bag Coloplast #39437 Flat Wafer [place] #8815 Small Barrier Ring Wear Time Goal: 3-4 days Coloplast 2pc Colostomy Pouch # 09255 Left In Room When Stool Thickens Too Much To Use High Output Bag. If additional ostomy supplies are needed, please call [employer] ([phone]) for above mentioned supplies. If supplies are unavailable in [employer], please secure chat [facility] Wound Care Nurses or call extension [phone] to request more supplies. Normal [facility] CBC panel Auto (Bld)on 10-22 Erythrocyte distribution width (RBC) [Ratio] 14.6 % Normal 11.5-15.0 [facility] Comment on above: Order Comment: Speci men Type: BLOOD SPECIMEN [facility] Address: [address] [place] [id number] Performed By: #### 4 091-5 #### [facility] CLIA [id number] [address] [place] [address] [place] Hematocrit (Bld) [Volume fraction] 28.0 % Low 36.0-46.0 [facility] Comment on above: Order Comment: Speci men Type: BLOOD SPECIMEN [facility] Address: [address] [place] [address] Performed By: #### 4 091-5 #### [facility] CLIA [id number] [address] [place] [address] [place] Hemoglobin (Bld) [Mass/Vol] 8.8 g/dL Low 11.5-15.5 [facility] Comment on above: Order Comment: Speci men Type: BLOOD SPECIMEN [facility] Address: [address] [place] [address] Performed By: #### 4 091-5 #### [facility] CLIA [id number] [address] [place] [address] MCH (RBC) [Entitic mass] 24.6 pg Low 26.0-34.0 [facility] Comment on above: Order Comment: Speci men Type: BLOOD SPECIMEN [facility] Address: [address] [place] [address] Performed By: #### 4 091-5 #### [facility] CLIA [id number] [address] [place] [address] MCHC (RBC) [Mass/Vol] 31.4 g/dL Normal 30.5-36.0 [facility] Comment on above: Order Comment: Speci men Type: BLOOD SPECIMEN [facility] Address: [address] [place] [address] Performed By: #### 4 091-5 #### [facility] CLIA [id number] [address] [place] [address] [place] MCV (RBC) [Entitic vol] 78.4 fL Low 80.0-100.0 [facility] Comment on above: Order Comment: Speci men Type: BLOOD SPECIMEN [facility] Address: [address] [place] [address] Performed By: #### 4 091-5 #### [facility] CLIA [id number] [address] [place] [address] Nucleated RBC (Bld) [#/Vol] 10*3/uL Normal <0.01 [facility] Comment on above: Order Comment: Speci men Type: BLOOD SPECIMEN [facility] Address: [address] [place] [address] Performed By: #### 4 091-5 #### [facility] CLIA [id number] [address] [place] [address] [place] Platelet mean volume (Bld) [Entitic vol] 8.7 fL Low 9.0-12.7 [facility] Comment on above: Order Comment: Speci men Type: BLOOD SPECIMEN [facility] Address: [address] [place] [address] Performed By: #### 4 091-5 #### [facility] CLIA [id number] [address] [place] [address] [place] Platelets (Bld) [#/Vol] 396 10*3/uL Normal 150-400 [facility] Comment on above: Order Comment: Speci men Type: BLOOD SPECIMEN [facility] Address: [address] [place] [address] Performed By: #### 4 091-5 #### [facility] CLIA [id number] [address] [place] [address] [place] RBC (Bld) [#/Vol] 3.57 10*6/uL Low 3.90-5.20 [facility] Comment on above: Order Comment: Speci men Type: BLOOD SPECIMEN [facility] Address: [address] [place] [address] Performed By: #### 4 091-5 #### [facility] CLIA [id number] [address] [place] [address] [place] WBC (Bld) [#/Vol] 5.87 10*3/uL Normal 3.70-11.00 [facility] Comment on above: Order Comment: Speci men Type: BLOOD SPECIMEN [facility] Address: [address] [place] [address] Performed By: #### 4 091-5 #### [facility] CLIA [id number] [address] [place] [address] OF [facility] CONSULT PROGon 10-22-2024 CONSULT PROG HNO ID: [id number] Author: TUNG JENNINGS MD Service: Gastroenterology Author [...] medical decision making from today, 10/22.) Normal [facility] Comprehensive metabolic 2000 panelon 10-22-2024 Albumin [Mass/Vol] 2.6 g/dL Low 3.2-5.0 [facility] Comment on above: Order Comment: Speci men Type: BLOOD SPECIMEN [facility] Address: [address] [place] [address] Performed By: #### 4 091-5 #### [facility] CLIA [id number] [address] [place] [address] [place] ALP [Catalytic activity/Vol] 110 U/L Normal 45-117 [facility] Comment on above: Order Comment: Speci men Type: BLOOD SPECIMEN [facility] Address: [address] [place] [address] Performed By: #### 4 091-5 #### [facility] CLIA [id number] [address] [place] [address] [place] ALT [Catalytic activity/Vol] 15 U/L Normal 13-61 [facility] Comment on above: Order Comment: Speci men Type: BLOOD SPECIMEN [facility] Address: [address] [place] [address] Result Comment: Resu lts may be falsely depressed after the administration of Sulfasalazine and/or Sulfapyridine. Performed By: #### 4 091-5 #### [facility] CLIA [id number] [address] [place] [address] [place] Anion gap [Moles/Vol] 8 mmol/L Normal 5-16 [facility] Comment on above: Order Comment: Speci men Type: BLOOD SPECIMEN [facility] Address: [address] [place] [address] Performed By: #### 4 091-5 #### [facility] CLIA [id number] [address] [place] [address] [place] AST [Catalytic activity/Vol] 14 U/L Normal 8-34 [facility] Comment on above: Order Comment: Speci men Type: BLOOD SPECIMEN [facility] Address: [address] [place] [address] Result Comment: Resu lts may be falsely depressed after the administration of Sulfasalazine and/or Sulfapyridine. Performed By: #### 4 091-5 #### [facility] CLIA [id number] [address] [place] [address] [place] Bilirubin [Mass/Vol] 0.9 mg/dL Normal 0.2-1.0 [facility] Comment on above: Order Comment: Speci men Type: BLOOD SPECIMEN [facility] Address: [address] [place] [address] Performed By: #### 4 091-5 #### [facility] CLIA [id number] [address] [place] [address] [place] Calcium [Mass/Vol] 8.9 mg/dL Normal 8.5-10.5 [facility] Comment on above: Order Comment: Speci men Type: BLOOD SPECIMEN [facility] Address: [address] [place] [address] Performed By: #### 4 091-5 #### [facility] CLIA [id number] [address] [place] [address] [place] Chloride [Moles/Vol] 98 mmol/L Normal 98-107 [facility] Comment on above: Order Comment: Speci men Type: BLOOD SPECIMEN [facility] [facility] Address: [address] [place] [address] Performed By: #### 4 091-5 #### [facility] CLIA [id number] [address] [place] [address] [place] CO2 [Moles/Vol] 30 mmol/L Normal 21-32 [facility] Comment on above: Order Comment: Speci men Type: BLOOD SPECIMEN Ordering Facility: [facility] Address: [address] [place] [address] Performed By: #### 4 091-5 #### [facility] CLIA [id number] [address] [place] [address] [place] Creatinine [Mass/Vol] 0.95 mg/dL Normal 0.51-0.95 [facility] Comment on above: Order Comment: Dora finch Type: BLOOD SPECIMEN Ordering Facility: [facility] Address: [address] [place] [address] Result Comment: Marissa ents receiving either N-Acetylcysteine (NAC) or Metamizole prior to venipuncture, may have falsely depressed results. Performed By: #### 4 091-5 #### [facility] CLIA [id number] [address] [place] [address] [facility] [place] Creatinine and Glomerular filtration rate.predicted panel (S/P/Bld) 77 mL/min/1.73m??? Normal >=60 [facility] Comment on above: Order Comment: Dora finch Type: BLOOD SPECIMEN Ordering Facility: [facility] Address: [address] [place] [address] Result Comment: Zeny mated Glomerular Filtration Rate [...] GFR. Performed By: #### 4 091-5 #### [facility] CLIA [id number] [address] [place] [address] [place] Glucose [Mass/Vol] 83 mg/dL Normal 70-100 [facility] Comment on above: Order Comment: Dora finch Type: BLOOD SPECIMEN Ordering Facility: [facility] Address: [address] [place] [address] Result Comment: The [place] Diabetes Association (ADA) provides guidance for cutoff [...] Standards of Medical Care in Diabetes 2016, [place] Diabetes Association. Diabetes Care. 2016.39(Suppl 1). Results may be falsely elevated after the administration of Sulfapyridine. Results may be falsely depressed after the administration of Sulfasalazine. Performed By: #### 4 091-5 #### [facility] CLIA [id number] [address] [place] [address] [place] Potassium [Moles/Vol] 3.2 mmol/L Low 3.5-5.1 [facility] Comment on above: Order Comment: Dora finch Type: BLOOD SPECIMEN Ordering Facility: [facility] Address: [address] [place] [address] Performed By: #### 4 091-5 #### [facility] CLIA [id number] [address] [place] [address] [place] Protein [Mass/Vol] 6.4 g/dL Normal 6.0-8.5 [facility] Comment on above: Order Comment: Dora finch Type: BLOOD SPECIMEN Ordering Facility: [facility] Address: [address] [place] [address] Performed By: #### 4 091-5 #### [facility] CLIA [id number] [address] [place] [address] [place] Sodium [Moles/Vol] 136 mmol/L Normal 136-145 [facility] Comment on above: Order Comment: Dora finch Type: BLOOD SPECIMEN Ordering Facility: [facility] Address: [address] [place] [address] Performed By: #### 4 091-5 #### [facility] CLIA [id number] [address] [place] [address] [place] Urea nitrogen [Mass/Vol] 9 mg/dL Normal 7-26 [facility] Comment on above: Order Comment: Dora finch Type: BLOOD SPECIMEN Ordering Facility: [facility] Address: [address] [place] [address] Performed By: #### 4 091-5 #### [facility] CLIA [id number] [address] [place] [address] [place] Gastrointestinal pathogens p bowen LAUREANO+probe (Stl)on 10-22-2024 ADENOVIRUS F 40/41 DNA Not detected Normal Not Detected [facility] Comment on above: Order Comment: Speci men Type: STOOL SPECIMENOrdering Facility: [facility] Address: [address] [place] [address] Performed By: #### 7 9381-0 ####[facility]ORYCLIA [id number] [place] [address] [place] ASTROVIRUS RNA Not detected Normal Not Detected [facility] Comment on above: Order Comment: Speci men Type: STOOL SPECIMENOrdering Facility: [facility] Address: [address] [place] [address] Performed By: #### 7 9381-0 ####[facility]ORYCLIA [id number] [place] [address] [place] C. cayetanensis DNA LAUREANO+probe Ql (Unsp spec) Not detected Normal Not Detected [facility] Comment on above: Order Comment: Speci men Type: STOOL SPECIMENOrdering Facility: [facility] Address: [address] [place] [address] Performed By: #### 7 9381-0 ####[facility]ORYCLIA [id number] [place] [address] [place] Campylobacter sp DNA.diarrheagenic LAUREANO+probe Ql (Stl) Not detected Normal Not Detected [facility] Comment on above: Order Comment: Speci men Type: STOOL SPECIMENOrdering Facility: [facility] Address: [address] [place] [address] Performed By: #### 7 9381-0 ####[facility]ORYCLIA [id number] [place] [address] [place] Cryptosporidium sp DNA LAUREANO+probe Ql (Unsp spec) Not detected Normal Not Detected [facility] Comment on above: Order Comment: Speci men Type: STOOL SPECIMENOrdering Facility: [facility] Address: [address] [place] [address] Performed By: #### 7 9381-0 ####[facility]ORYCLIA [id number] [address] E. coli O157:H7 DNA LAUREANO+probe Ql (Unsp spec) Not applicable Normal Not detected [facility] Comment on above: Order Comment: Speci men Type: STOOL SPECIMENOrdering Facility: [facility] Address: [address] [place] [address] Performed By: #### 7 9381-0 ####[facility]ORYCLIA [id number] [address] E. coli stx1+stx2 genes LAUREANO+probe Ql (Stl) Not detected Normal Not Detected [facility] Comment on above: Order Comment: Speci men Type: STOOL SPECIMENOrdering Facility: [facility] Address: [address] [place] [address] Performed By: #### 7 9381-0 ####[facility]ORYCLIA [id number] [address] E. histolytica DNA LAUREANO+probe Ql (Unsp spec) Not detected Normal Not Detected [facility] Comment on above: Order Comment: Speci men Type: STOOL SPECIMENOrdering Facility: [facility] Address: [address] [place] [address] Performed By: #### 7 9381-0 ####[facility]ORYCLIA [id number] [address] ENTEROAGGREGATIVE E. COLI (EAEC) DNA Not detected Normal Not Detected [facility] Comment on above: Order Comment: Speci men Type: STOOL SPECIMENOrdering Facility: [facility] Address: [address] [place] [address] Performed By: #### 7 9381-0 ####[facility]ORYCLIA [id number] [address] [place] ENTEROPATHOGENIC E. COLI (EPEC) DNA Not detected Normal Not detected [facility] Comment on above: Order Comment: Speci men Type: STOOL SPECIMENOrdering Facility: [facility] Address: [address] [place] [address] Performed By: #### 7 9381-0 ####[facility]ORYCLIA [id number] [place] [address] [place] ENTEROTOXIGENIC E. COLI (ETEC) DNA Not detected Normal Not Detected [facility] Comment on above: Order Comment: Speci men Type: STOOL SPECIMENOrdering Facility: [facility] Address: [address] [place] [address] Performed By: #### 7 9381-0 ####[facility]ORYCLIA [id number] [place] [address] [place] G. lamblia DNA LAUREANO+probe Ql (Unsp spec) Not detected Normal Not Detected [facility] Comment on above: Order Comment: Speci men Type: STOOL SPECIMENOrdering Facility: [facility] Address: [address] [place] [address] Performed By: #### 7 9381-0 ####[facility]ORYCLIA [id number] [place] [address] [place] NOROVIRUS GI/GII RNA Not detected Normal Not Detected [facility] Comment on above: Order Comment: Speci men Type: STOOL SPECIMENOrdering Facility: [facility] Address: [address] [place] [address] Performed By: #### 7 9381-0 ####[facility]ORYCLIA [id number] [place] [address] [place] PLESIOMONAS SHIGELLOIDES DNA Not detected Normal Not Detected [facility] Comment on above: Order Comment: Speci [facility] Type: STOOL SPECIMENOrdering Facility: [facility] Address: [address] [place] [address] Performed By: #### 7 9381-0 ####[facility]ORYCLIA [id number] [place] [address] [place] ROTAVIRUS A RNA Not detected Normal Not Detected [facility] Comment on above: Order Comment: Speci men Type: STOOL SPECIMENOrdering Facility: [facility] Address: [address] [place] [address] Performed By: #### 7 9381-0 ####[facility]ORYCLIA [id number] [place] [address] [place] Salmonella sp DNA LAUREANO+probe Ql (Unsp spec) Not detected Normal Not Detected [facility] Comment on above: Order Comment: Speci men Type: STOOL SPECIMENOrdering Facility: [facility] Address: [address] [place] [address] Performed By: #### 7 9381-0 ####[facility]ATORYCLIA [id number] [address] [place] SAPOVIRUS (GENOGROUPS I, II, IV, V) RNA Not detected Normal Not Detected [facility] Comment on above: Order Comment: Speci men Type: STOOL SPECIMENOrdering Facility: [facility] Address: [address] [place] [address] Performed By: #### 7 9381-0 ####[facility]ATORYCLIA [id number] [address] [place] Shigella species+EIEC invasion plasmid antigen H ipaH gene LAUREANO+probe Ql (Stl) Not detected Normal Not Detected [facility] Comment on above: Order Comment: Speci men Type: STOOL SPECIMENOrdering Facility: [facility] Address: [address] [place] [address] Performed By: #### 7 9381-0 ####[facility]ORYCLIA [id number] [place] [address] [place] V. cholerae DNA LAUREANO+probe Ql (Unsp spec) Not detected Normal Not Detected [facility] Comment on above: Order Comment: Speci men Type: STOOL SPECIMENOrdering Facility: [facility] Address: [address] [place] [address] Performed By: #### 7 9381-0 ####[facility]ORYCLIA [id number] [address] [place] Vibrio sp DNA LAUREANO+probe Nom (Unsp spec) Not detected Normal Not Detected [facility] Comment on above: Order Comment: Speci men Type: STOOL SPECIMENOrdering Facility: [facility] Address: [address] [place] [address] Performed By: #### 7 9381-0 ####[facility]ORYCLIA [id number] [address] Yersinia sp DNA LAUREANO+probe Nom (Unsp spec) Not detected Normal Not Detected [facility] Comment on above: Order Comment: Speci men Type: STOOL SPECIMENOrdering Facility: [facility] Address: [address] [place] [address] Performed By: #### 7 9381-0 ####[facility]ORYCLIA [id number] [address] [place] Magnesium SerPl-mCncon 10-22 Magnesium [Mass/Vol] 1.3 mg/dL Low 1.6-2.6 [facility] Comment on above: Order Comment: Speci men Type: BLOOD SPECIMEN Ordering Facility: [facility] Address: [address] [place] [address] Performed By: #### 4 091-5 #### [facility] CLIA [id number] [address] [place] [address] C diff Tox gens Stl Ql LARUEANO+p robeon 10-21-2024 C. difficile toxin genes LAUREANO+probe Ql (Stl) Negative Normal Negative for C. difficile toxin by PCR [facility] Comment on above: Order Comment: Speci men Type: BLOOD SPECIMEN Ordering Facility: [facility] Address: [address] [place] [address] Performed By: #### 4 091-5 #### [facility] CLIA [id number] [address] [place] [address] [place] CBC panel Auto (Bld)on 10-21 Erythrocyte distribution width (RBC) [Ratio] 14.6 % Normal 11.5-15.0 [facility] Comment on above: Order Comment: Speci men Type: BLOOD SPECIMEN Ordering Facility: [facility] Address: [address] [place] [address] Performed By: #### 4 091-5 #### [facility] CLIA [id number] [address] [place] [address] [facility] [place] Hematocrit (Bld) [Volume fraction] 31.0 % Low 36.0-46.0 [facility] Comment on above: Order Comment: Speci men Type: BLOOD SPECIMEN Ordering Facility: [facility] Address: [address] [place] [address] Performed By: #### 4 091-5 #### [facility] CLIA [id number] [address] [place] [address] [place] Hemoglobin (Bld) [Mass/Vol] 9.3 g/dL Low 11.5-15.5 [facility] Comment on above: Order Comment: Speci men Type: BLOOD SPECIMEN Ordering Facility: [facility] Address: [address] [place] [address] Performed By: #### 4 091-5 #### [facility] CLIA [id number] [address] [place] [address] [place] MCH (RBC) [Entitic mass] 24.1 pg Low 26.0-34.0 [facility] Comment on above: Order Comment: Speci men Type: BLOOD SPECIMEN Ordering Facility: [facility] Address: [address] [place] [address] Performed By: #### 4 091-5 #### [facility] CLIA [id number] [address] [place] [address] [place] MCHC (RBC) [Mass/Vol] 30.0 g/dL Low 30.5-36.0 [facility] Comment on above: Order Comment: Speci men Type: BLOOD SPECIMEN Ordering Facility: [facility] Address: [address] [place] [address] Performed By: #### 4 091-5 #### [facility] CLIA [id number] [address] [place] [address] [place] MCV (RBC) [Entitic vol] 80.3 fL Normal 80.0-100.0 [facility] Comment on above: Order Comment: Speci men Type: BLOOD SPECIMEN Ordering Facility: [facility] Address: [address] [place] [address] Performed By: #### 4 091-5 #### [facility] CLIA [id number] [address] [place] [address] [place] Nucleated RBC (Bld) [#/Vol] 10*3/uL Normal <0.01 [facility] Comment on above: Order Comment: Speci men Type: BLOOD SPECIMEN Ordering Facility: [facility] Address: [address] [place] [address] Performed By: #### 4 091-5 #### [facility] CLIA [id number] [address] [place] [address] [place] Platelet mean volume (Bld) [Entitic vol] 8.9 fL Low 9.0-12.7 [facility] Comment on above: Order Comment: Speci men Type: BLOOD SPECIMEN Ordering Facility: [facility] Address: [address] [place] [address] Performed By: #### 4 091-5 #### [facility] CLIA [id number] [address] [place] [address] [place] Platelets (Bld) [#/Vol] 441 10*3/uL High 150-400 [facility] Comment on above: Order Comment: Speci men Type: BLOOD SPECIMEN Ordering Facility: [facility] Address: [address] [place] [address] Performed By: #### 4 091-5 #### [facility] CLIA [id number] [address] [place] [address] [place] RBC (Bld) [#/Vol] 3.86 10*6/uL Low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 47849 ####[facility],[address] [place] [address] 91124 WBC 12.0 x 10EE3/UL High 4.5 - 10.8 [facility] Comment on above: Performed By: #### 2 15678 ####[facility],[address] [place] [address] 05199 CMP with eGFRon 10-19-2024 AGE 39 years Normal [facility] Comment on above: Performed By: #### 2 13288 ####[facility],[address] [place] [address] 24546 Albumin [Mass/Vol] 3.5 g/dL Normal 3.4 - 5.0 [facility] Comment on above: Performed By: #### 2 46924 ####[facility],[address] [place] [address] 28046 Albumin/Globulin [Mass ratio] 0.6 {ratio} Low 0.9 - 1.6 [facility] Comment on above: Performed By: #### 2 04607 ####[facility],[address] [place] [address] 63256 ALK PHOS 170 U/L High 46 - 116 [facility] Comment on above: Performed By: #### 2 56976 ####[facility],[address] [place] [address] 72681 ALT [Catalytic activity/Vol] 37 U/L Normal 16 - 63 [facility] Comment on above: Performed By: #### 2 76371 ####[facility],[address] [place] [address] 32497 Anion gap [Moles/Vol] 17 mmol/L Normal 10 - 20 [facility] Comment on above: Performed By: #### 2 31457 ####[facility],[address] [place] [address] 41143 AST [Catalytic activity/Vol] 30 U/L Normal 13 - 39 [facility] Comment on above: Performed By: #### 2 37212 ####[facility],[address] [place] [address] 99857 B/C RATIO 10 ratio Normal 0 - 30 [facility] Comment on above: Performed By: #### 2 47747 ####[facility],[address] [place] [address] 09573 Bilirubin [Mass/Vol] 1.1 mg/dL High 0.2 - 1.0 [facility] Comment on above: Performed By: #### 2 24677 ####[facility],[address] [place] [address] 41796 Calcium [Mass/Vol] 9.7 mg/dL Normal 8.5 - 10.1 [facility] Comment on above: Performed By: #### 2 42855 ####[facility],[address] [place] [address] 51937 Chloride [Moles/Vol] 92 mmol/L Low 98 - 107 [facility] Comment on above: Performed By: #### 2 70478 ####[facility],[address] [place] [address] 69479 CMP with eGFR Normal [facility] Comment on above: Result Comment: COMP REHENSIVE METABOLIC PANEL Performed By: #### 2 54306 ####[facility],[address] [place] [address] 36052 CO2 [Moles/Vol] 24.6 mmol/L Normal 21.0 - 32.0 [facility] Comment on above: Performed By: #### 2 31759 ####[facility],[address] [place] [address] 95902 Creatinine [Mass/Vol] 2.18 mg/dL High 0.55 - 1.02 [facility] Comment on above: Performed By: #### 2 95862 ####[facility],[address] [place] [address] 68346 eGFR 25 ML/MINUTE Low 60 - 999 [facility] Comment on above: Performed By: #### 2 66092 ####[facility],[address] [place] [address] 83511 eGFR(AA) 30 ML/MINUTE Low 60 - 999 [facility] [...] AGE AND OLDER. Performed By: #### 2 62893 ####[facility],[address] [place] [address] 23475 Globulin (S) [Mass/Vol] 6.0 g/dL High 1.5 - 3.8 [facility] Comment on above: Performed By: #### 2 08492 ####[facility],[address] [place] [address] 75758 Glucose [Mass/Vol] 146 mg/dL High 74 - 106 [facility] Comment on above: Performed By: #### 2 14245 ####[facility],[address] [place] [address] 04099 Potassium [Moles/Vol] 3.3 mmol/L Low 3.5 - 5.1 [facility] Comment on above: Performed By: #### 2 42261 ####[facility],[address] [place] [address] 68596 Protein [Mass/Vol] 9.5 g/dL High 6.4 - 8.2 [facility] Comment on above: Performed By: #### 2 85690 ####[facility],[address] [place] [address] 60732 Sodium [Moles/Vol] 130 mmol/L Low 136 - 145 [facility] Comment on above: Performed By: #### 2 50118 ####[facility],[address] [place] [address] 71384 Urea nitrogen [Mass/Vol] 21 mg/dL High 7 - 18 [facility] Comment on above: Performed By: #### 2 64739 ####[facility],[address] [place] [address] 46088 HISTORY PHYSICALon HISTORY PHYSICAL HNO ID: [id number] Author: MICHAEL ELLIS MD Service: Hospital Medicine Author Type: Physician Type: H&P Filed: 10/19/2024 23:29 Note Text: HISTORY AND PHYSICAL EXAMINATION PATIENT NAME: Daly Evans SERVICE DATE AND TIME: 10/19/2024 11:22 PM PRIMARY CARE PHYSICIAN: Fredrick Boland DO CHIEF COMPLAINT: Persistent stools since having ileostomy placed at [facility] HPI: The patient is a 39-year-old female with a past medical history of bipolar disorder, generalized anxiety/panic disorder, iron deficiency anemia, vitamin D deficiency, tobacco abuse, polysubstance abuse with a history of suicide attempt and presented to [facility] 08/20/2024 with severe abdominal pain and was [...] jejunostomy and closure open abdomen 08/22/2024 at [facility] during that stay developed a DVT and was placed on Lovenox, presently in a [facility] facility who continues to have frequent recurring diarrhea. She was on TPN through a PICC line until 2 weeks ago. Due to her persistent diarrhea she was sent to the outside ER. The outside ER contacted her surgeon at the [facility] who felt patient could safely [...] Patient quit (more content not included)... Normal [facility] MAGNESIUMon 10-19-2024 Magnesium [Mass/Vol] 1.9 mg/dL Normal 1.8 - 2.4 [facility] Comment on above: Performed By: #### 2 76137 #### [facility],[address] [place] [address] TROPONINon 10-19-2024 HS TROPONIN 4.1 pg/mL Normal 0.0 - 51.4 [facility] Comment on above: Performed By: #### 2 62881 #### [facility],[address] [place] [address] BMP with eGFRon 10-16-2024 AGE 39 years Normal [facility] Comment on above: Performed By: #### 2 73159 #### [facility],[address] [place] [address] 54658 Anion gap [Moles/Vol] 14 mmol/L Normal 10 - 20 [facility] Comment on above: Performed By: #### 2 57783 #### [facility],[address] [place] [address] 33986 BMP with eGFR Normal [facility] Comment on above: Result Comment: BASI C METABOLIC PANEL Performed By: #### 2 61530 #### [facility],[address] [place] [address] 16674 Calcium [Mass/Vol] 8.7 mg/dL Normal 8.5 - 10.1 [facility] Comment on above: Performed By: #### 2 70327 #### [facility],[address] [place] [address] 54561 Chloride [Moles/Vol] 99 mmol/L Normal 98 - 107 [facility] Comment on above: Performed By: #### 2 00430 #### [facility],[address] [place] [address] 89819 CO2 [Moles/Vol] 24.5 mmol/L Normal 21.0 - 32.0 [facility] Comment on above: Performed By: #### 2 08381 #### [facility],[address] [place] [address] 70240 Creatinine [Mass/Vol] 1.16 mg/dL High 0.55 - 1.02 [facility] Comment on above: Performed By: #### 2 75316 #### [facility],[address] [place] [address] 95141 eGFR 51 ML/MINUTE Low 60 - 999 [facility] Comment on above: Performed By: #### 2 93499 #### [facility],[address] [place] [address] 49843 GFR/1.73 sq M.predicted among non-blacks MDRD (S/P/Bld) [Vol rate/Area] mL/min/{1.73_m2} Normal 60 - 999 [facility] [...] AGE AND OLDER. Performed By: #### 2 86650 #### [facility],[address] [place] [address] 31994 Glucose [Mass/Vol] 97 mg/dL Normal 74 - 106 [facility] Comment on above: Performed By: #### 2 36588 #### [facility],[address] [place] [address] 67597 Potassium [Moles/Vol] 3.2 mmol/L Low 3.5 - 5.1 [facility] Comment on above: Performed By: #### 2 48942 #### [facility],[address] [place] [address] 40870 Sodium [Moles/Vol] 134 mmol/L Low 136 - 145 [facility] Comment on above: Performed By: #### 2 74273 #### [facility],[address] [place] [address] 46091 Urea nitrogen [Mass/Vol] 22 mg/dL High 7 - 18 [facility] Comment on above: Performed By: #### 2 25967 #### [facility],[address] [place] [address] 89484 CBC + DIFFon 10-16-2024 Baso # 0.02 x10EE3/UL Normal 0.00 - 0.10 [facility] Comment on above: Performed By: #### 2 03935 #### [facility],[address] [place] [address] 12256 Basophils/100 WBC (Bld) 0.4 % Normal 0.0 - 2.0 [facility] Comment on above: Performed By: #### 2 11921 #### [facility],[address] [place] [address] 55214 CBC + DIFF Normal [facility] Comment on above: Result Comment: CBC- COMPLETE BLOOD COUNT Performed By: #### 2 49789 #### [facility],[address] [place] [address] 79339 EO # 0.15 x10EE3/UL Normal 0.00 - 0.50 [facility] Comment on above: Performed By: #### 2 23486 #### [facility],[address] [place] [address] 60430 Eosinophils/100 WBC (Bld) 2.3 % Normal 0.0 - 7.0 [facility] Comment on above: Performed By: #### 2 33670 #### [place] [address] Erythrocyte distribution width (RBC) [Ratio] 16.1 % High 12.0 - 15.6 [facility] Comment on above: Performed By: #### 2 63230 #### [facility],[address] [place], [place] [id number] Hematocrit (Bld) [Volume fraction] 31.0 % Low 34.0 - 46.0 [facility] Comment on above: Performed By: #### 2 03318 #### [facility],[address] [place] [address] 37285 Hemoglobin (Bld) [Mass/Vol] 10.3 g/dL Low 12.0 - 16.0 [facility] Comment on above: Performed By: #### 2 31450 #### [address] [address] Lymph # 2.20 x10EE3/UL Normal 0.80 - 2.80 [facility] Comment on above: Performed By: #### 2 59508 #### [facility],[address] [place] [address] 02537 Lymphocytes/100 WBC (Bld) 33.9 % Normal 20.0 - 45.0 [facility] Comment on above: Performed By: #### 2 65246 #### [facility],[address] [place] [address] MANUAL DIFF N/A Normal [facility] Comment on above: Performed By: #### 2 27207 #### [facility],[address] [place] [address] MCH (RBC) [Entitic mass] 24 pg Low 27 - 33 [facility] Comment on above: Performed By: #### 2 11953 #### [facility],[address] [place] [address] MCHC 33 X10 3 Normal 32 - 36 [facility] Comment on above: Performed By: #### 2 71990 #### [facility],[address] [place] [address] MCV (RBC) [Entitic vol] 73 fL Low 80 - 99 [facility] Comment on above: Performed By: #### 2 62377 #### [facility],[address] [place] [address] Pickett # 0.66 x10EE3/UL Normal 0.20 - 1.00 [facility] Comment on above: Performed By: #### 2 13425 #### [facility],[address] [place] [address] MONOS % 10.2 % High 0.0 - 10.0 [facility] Comment on above: Performed By: #### 2 35425 #### [facility],[address] [place], [place] [id number] Morphology Stan (Bld) [Interp] N/A Normal [facility] Comment on above: Performed By: #### 2 07226 #### [facility],[address] [place] [address] Neut # 3.46 x10EE3/UL Normal 1.50 - 7.10 [facility] Comment on above: Performed By: #### 2 53265 #### [facility],[address] [place] [address] 57081 Neutrophils/100 WBC (Bld) 53.3 % Normal 46.0 - 76.0 [facility] Comment on above: Performed By: #### 2 50221 #### [facility],[address] [place] [address] 86310 PLATELET 516 x10EE3/UL High 150 - 450 [facility] Comment on above: Performed By: #### 2 99798 #### [facility],[address] [place] [address] 33780 Platelet mean volume (Bld) [Entitic vol] 7.2 fL Normal 6.6 - 10.5 [facility] Comment on above: Result Comment: AUTO MATED DIFFERENTIAL Performed By: #### 2 55806 #### [facility],[address] [place] [address] 58863 RBC 4.23 x 10EE6/UL Normal 4.10 - 5.30 [facility] Comment on above: Performed By: #### 2 89479 #### [facility],[address] [place] [address] 38962 WBC 6.5 x 10EE3/UL Normal 4.5 - 10.8 [facility] Comment on above: Performed By: #### 2 42673 #### [facility],[address] [place] [address] 66887 CBC + DIFFon 10-15-2024 Baso # 0.04 x10EE3/UL Normal 0.00 - 0.10 [facility] Comment on above: Performed By: #### 2 27979 #### [facility],[address] [place] [address] 68625 Basophils/100 WBC (Bld) 0.5 % Normal 0.0 - 2.0 [facility] Comment on above: Performed By: #### 2 20647 #### [facility],[address] [place] [address] 05298 CBC + DIFF Normal [facility] Comment on above: Result Comment: CBC- COMPLETE BLOOD COUNT Performed By: #### 2 87281 #### [facility],[address] [place] [address] 35999 EO # 0.15 x10EE3/UL Normal 0.00 - 0.50 [facility] Comment on above: Performed By: #### 2 28064 #### [facility],[address] [place] [address] 36864 Eosinophils/100 WBC (Bld) 1.9 % Normal 0.0 - 7.0 [facility] Comment on above: Performed By: #### 2 52713 #### [address] [address] Erythrocyte distribution width (RBC) [Ratio] 16.6 % High 12.0 - 15.6 [facility] Comment on above: Performed By: #### 2 47896 #### [facility],[address] [place] [address] 25276 Hematocrit (Bld) [Volume fraction] 36.9 % Normal 34.0 - 46.0 [facility] Comment on above: Performed By: #### 2 66347 #### [facility],[address] [place] [address] 57243 Hemoglobin (Bld) [Mass/Vol] 12.3 g/dL Normal 12.0 - 16.0 [facility] Comment on above: Result Comment: TEST REPEATED Performed By: #### 2 31844 #### [address] [address] Lymph # 2.93 x10EE3/UL High 0.80 - 2.80 [facility] Comment on above: Performed By: #### 2 48196 #### [facility],[address] [place] [address] 79721 Lymphocytes/100 WBC (Bld) 37.1 % Normal 20.0 - 45.0 [facility] Comment on above: Performed By: #### 2 56145 #### [facility],[address] [place] [address] MANUAL DIFF N/A Normal [facility] Comment on above: Performed By: #### 2 20597 #### [facility],[address] [place] [address] MCH (RBC) [Entitic mass] 25 pg Low 27 - 33 [facility] Comment on above: Performed By: #### 2 26508 #### [place] [address] MCHC 33 X10 3 Normal 32 - 36 [facility] Comment on above: Performed By: #### 2 25295 #### [facility],[address] [place] [address] MCV (RBC) [Entitic vol] 75 fL Low 80 - 99 [facility] Comment on above: Performed By: #### 2 03024 #### [facility],[address] [place] [address] Pickett # 0.58 x10EE3/UL Normal 0.20 - 1.00 [facility] Comment on above: Performed By: #### 2 28030 #### [facility],[address] [place] [address] MONOS % 7.3 % Normal 0.0 - 10.0 [facility] Comment on above: Performed By: #### 2 88079 #### [facility],[address] [place] [address] Morphology Stan (Bld) [Interp] N/A Normal [facility] Comment on above: Performed By: #### 2 08772 #### [place] [address] Neut # 4.21 x10EE3/UL Normal 1.50 - 7.10 [facility] Comment on above: Performed By: #### 2 33143 #### [facility],[address] [place] [address] 89178 Neutrophils/100 WBC (Bld) 53.3 % Normal 46.0 - 76.0 [facility] Comment on above: Performed By: #### 2 35941 #### [facility],[address] [place] [address] 93118 PLATELET 562 x10EE3/UL High 150 - 450 [facility] Comment on above: Performed By: #### 2 14867 #### [facility],[address] [place] [address] 20313 Platelet mean volume (Bld) [Entitic vol] 8.2 fL Normal 6.6 - 10.5 [facility] Comment on above: Result Comment: AUTO MATED DIFFERENTIAL Performed By: #### 2 92400 #### [facility],[address] [place] [address] 98514 RBC 4.92 x 10EE6/UL Normal 4.10 - 5.30 [facility] Comment on above: Performed By: #### 2 62605 #### [facility],[address] [place] [address] 16870 WBC 7.9 x 10EE3/UL Normal 4.5 - 10.8 [facility] Comment on above: Performed By: #### 2 71516 #### [facility],[address] [place] [address] 89448 CMP with eGFRon 10-15-2024 AGE 39 years Normal [facility] Comment on above: Performed By: #### 2 67197 #### [facility],[address] [place] [address] 29632 Albumin [Mass/Vol] 2.9 g/dL Low 3.4 - 5.0 [facility] Comment on above: Performed By: #### 2 48418 #### [facility],[address] [place] [address] 55956 Albumin/Globulin [Mass ratio] 0.5 {ratio} Low 0.9 - 1.6 [facility] Comment on above: Performed By: #### 2 30408 #### [facility],[address] [place] [address] 21881 ALK PHOS 151 U/L High 46 - 116 [facility] Comment on above: Performed By: #### 2 15029 #### [facility],[address] [place] [address] [id number] ALT [Catalytic activity/Vol] 45 U/L Normal 16 - 63 [facility] Comment on above: Performed By: #### 2 86706 #### [facility],[address] [place] [address] 62559 Anion gap [Moles/Vol] 21 mmol/L High 10 - 20 [facility] Comment on above: Performed By: #### 2 00480 #### [facility],[address] [place] [address] 29547 AST [Catalytic activity/Vol] 30 U/L Normal 13 - 39 [facility] Comment on above: Performed By: #### 2 41056 #### [facility],[address] [place] [address] 35812 B/C RATIO 19 ratio Normal 0 - 30 [facility] Comment on above: Performed By: #### 2 29344 #### [facility],[address] [place] [address] 04038 Bilirubin [Mass/Vol] 0.9 mg/dL Normal 0.2 - 1.0 [facility] Comment on above: Performed By: #### 2 96719 #### [facility],[address] [place] [address] 74134 Calcium [Mass/Vol] 9.4 mg/dL Normal 8.5 - 10.1 [facility] Comment on above: Result Comment: RESU LTS REPEATED AND VERIFIED Performed By: #### 2 74160 #### [facility],[address] [place] [address] 98373 Chloride [Moles/Vol] 94 mmol/L Low 98 - 107 [facility] Comment on above: Performed By: #### 2 97384 #### [facility],[address] [place] [address] 47933 CMP with eGFR Normal [facility] Comment on above: Result Comment: COMP REHENSIVE METABOLIC PANEL Performed By: #### 2 69467 #### [facility],[address] [place] [address] 23274 CO2 [Moles/Vol] 20.9 mmol/L Low 21.0 - 32.0 [facility] Comment on above: Result Comment: RESU LTS REPEATED AND VERIFIED Performed By: #### 2 91365 #### [address] [address] Creatinine [Mass/Vol] 1.49 mg/dL High 0.55 - 1.02 [facility] Comment on above: Result Comment: RESU LTS REPEATED AND VERIFIED Performed By: #### 2 91074 #### [facility],[address] [place] [address] 75608 eGFR 39 ML/MINUTE Low 60 - 999 [facility] Comment on above: Performed By: #### 2 60708 #### [facility],[address] [place] [address] 12602 eGFR(AA) 47 ML/MINUTE Low 60 - 999 [facility] [...] AGE AND OLDER. Performed By: #### 2 73225 #### [facility],[address] [place] [address] 54547 Globulin (S) [Mass/Vol] 5.8 g/dL High 1.5 - 3.8 [facility] Comment on above: Performed By: #### 2 96004 #### [facility],[address] [place] [address] 19222 Glucose [Mass/Vol] 101 mg/dL Normal 74 - 106 [facility] Comment on above: Performed By: #### 2 82615 #### [facility],[address] [place] [address] 40489 Potassium [Moles/Vol] 3.4 mmol/L Low 3.5 - 5.1 [facility] Comment on above: Performed By: #### 2 38070 #### [facility],[address] [place] [address] 85449 Protein [Mass/Vol] 8.7 g/dL High 6.4 - 8.2 [facility] Comment on above: Performed By: #### 2 52532 #### [facility],[address] [place] [address] 68555 Sodium [Moles/Vol] 132 mmol/L Low 136 - 145 [facility] Comment on above: Performed By: #### 2 79067 #### [facility],[address] [place] [address] 75491 Urea nitrogen [Mass/Vol] 29 mg/dL High 7 - 18 [facility] Comment on above: Performed By: #### 2 74906 #### [facility],[address] [place] [address] 40062 HEMOGLOBIN A1C (POM)on 10-15 Glucose [Mass/Vol] 131.2 mg/dL High 0.0 - 0.0 [facility] Comment on above: Result Comment: BLDo HEMOGLOBIN A1C REFERENCE RANGESBLDo Suggested Diagnosis HbA1c(%) HbA1C (mmol/mol Diabetic >/=6.5 >/=48 Prediabetes 5.7 - 6.4 39 - 47 Normal <5.7 <39 Performed By: #### 2 63244 #### [facility],[address] [place] [address] 94962 HbA1c (Bld) [Mass fraction] 6.2 % Normal 0.0 - 6.5 [facility] Comment on above: Performed By: #### 2 19397 #### [facility],[address] [place] [address] 19201 LIPID PROFILEon 10-15-2024 Cholesterol [Mass/Vol] 88 mg/dL Normal 0 - 240 [facility] Comment on above: Performed By: #### 2 05099 #### [facility],[address] [place] [address] 03771 Cholesterol in HDL [Mass/Vol] 66 mg/dL High 40 - 60 [facility] Comment on above: Performed By: #### 2 83809 #### [facility],[address] [place] [address] 04908 Cholesterol in LDL [Mass/Vol] 8 mg/dL Normal 0 - 129 [facility] Comment on above: Performed By: #### 2 26499 #### [facility],[address] [place] [address] 31226 Cholesterol.total/C holesterol in HDL [Mass ratio] 1.3 {ratio} Normal 0.0 - 5.0 [facility] Comment on above: Performed By: #### 2 46651 #### [facility],[address] [place] [address] 13186 Lipid 1996 panel Normal [facility] Comment on above: Result Comment: LIPI D PROFILE Performed By: #### 2 66919 #### [facility],[address] [place] [address] 48588 Triglyceride [Mass/Vol] 72 mg/dL Normal 0 - 150 [facility] Comment on above: Performed By: #### 2 46504 #### [facility],[address] [place] [address] 54876 HALOPERIDOL [CCL]on 04-19-20 25 Haloperidol <0.6 Low 5.0-20.0 [facility] Comment on above: Result Comment: INTE RPRETIVE INFORMATION: Haloperidol Level Therapeutic Range: 5.0-20.0 ng/mL Toxic: Greater than 50 ng/mL The therapeutic range is based on serum pre-dose (trough) draw at steady-state concentration. Adverse effects may include drowsiness, blurred vision, tardive dyskinesia, tachycardia, hypotension and muscular rigidity. This test was developed and its performance characteristics determined by [facility]. It has not been cleared or approved by the [place] Food and Drug Administration. This test was performed in a CLIA certified laboratory and is intended for clinical purposes. Performed By: [facility] [address] [place] [address] Ground Instructor Advanced: Willis Christine MD, PhD CLIA Number: [id number] [place] [address] Jaison Lema III, M.D. [id number] Performed By: #### 2 37848 #### [facility],[address] [place] [address] Basic metabolic 2000 panelon 10-12-2024 Anion gap [Moles/Vol] 7 mmol/L Normal 5-16 [facility] Comment on above: Order Comment: Speci men Type: BLOOD SPECIMEN Ordering Facility: [facility] Address: [address] [place] [address] Performed By: #### 4 5066-8 #### [facility] CLIA [id number] [address] [place] [address] [place] Calcium [Mass/Vol] 9.4 mg/dL Normal 8.5-10.5 [facility] Comment on above: Order Comment: Florii stef Type: BLOOD SPECIMEN Ordering Facility: [facility] Address: [address] [place] [address] Performed By: #### 4 5066-8 #### [facility] CLIA [id number] [address] [place], [place] [address] [place] Chloride [Moles/Vol] 103 mmol/L Normal 98-107 [facility] Comment on above: Order Comment: Speci men Type: BLOOD SPECIMEN Ordering Facility: [facility] Address: [address] [place] [address] Performed By: #### 4 5066-8 #### [facility] CLIA [id number] [address] [place] [address] [place] CO2 [Moles/Vol] 24 mmol/L Normal 21-32 [facility] Comment on above: Order Comment: Speci men Type: BLOOD SPECIMEN Ordering Facility: [facility] Address: [address] [place] [address] Performed By: #### 4 5066-8 #### [facility] CLIA [id number] [address] [place] [address] [place] Creatinine [Mass/Vol] 0.83 mg/dL Normal 0.51-0.95 [facility] Comment on above: Order Comment: Speci men Type: BLOOD SPECIMEN Ordering Facility: [facility] Address: [address] [place] [address] Result Comment: Marissa ents receiving either N-Acetylcysteine (NAC) or Metamizole prior to venipuncture, may have falsely depressed results. Performed By: #### 4 5066-8 #### [facility] CLIA [id number] [address] [place] [address] [place] Creatinine and Glomerular filtration rate.predicted panel (S/P/Bld) 91 mL/min/1.73m??? Normal >=60 [facility] Comment on above: Order Comment: Speci men Type: BLOOD SPECIMEN Ordering Facility: [facility] Address: [address] [place] [address] Result Comment: Zeny mated Glomerular Filtration Rate [...] GFR. Performed By: #### 4 5066-8 #### [facility] CLIA [id number] [address] [place] [address] [place] Glucose [Mass/Vol] 99 mg/dL Normal 70-100 [facility] Comment on above: Order Comment: Dora finch Type: BLOOD SPECIMEN Ordering Facility: [facility] Address: [address] [place] [address] Result Comment: The [place] Diabetes Association (ADA) provides guidance for cutoff [...] Standards of Medical Care in Diabetes 2016, [place] [employer]. Diabetes Care. 2016.39(Suppl 1). Results may be falsely elevated after the administration of Sulfapyridine. Results may be falsely depressed after the administration of Sulfasalazine. Performed By: #### 4 5066-8 #### [facility] CLIA [id number] [address] [place] [address] [place] Potassium [Moles/Vol] 3.6 mmol/L Normal 3.5-5.1 [facility] Comment on above: Order Comment: Dora finch Type: BLOOD SPECIMEN Ordering Facility: [facility] Address: [address] [place] [address] Performed By: #### 4 5066-8 #### [facility] CLIA [id number] [address] [place] [address] [place] Sodium [Moles/Vol] 134 mmol/L Low 136-145 [facility] Comment on above: Order Comment: Dora finch Type: BLOOD SPECIMEN Ordering Facility: [facility] Address: [address] [place], [place] [address] Performed By: #### 4 5066-8 #### [facility] CLIA [id number] [address] [place] [address] [place] Urea nitrogen [Mass/Vol] 7 mg/dL Normal 7-26 [facility] Comment on above: Order Comment: Speci men Type: BLOOD SPECIMEN Ordering Facility: [facility] Address: [address] [place] [address] Performed By: #### 4 5066-8 #### [facility] CLIA [id number] [address] [place] [address] [place] CBC W Auto Differential pane l (Bld)on 10-12-2024 Basophils (Bld) [#/Vol] 0.05 10*3/uL Normal <0.11 [facility] Comment on above: Order Comment: Speci men Type: BLOOD SPECIMEN Ordering Facility: [facility] Address: [address] [place] [address] Performed By: #### 4 5066-8 #### [facility] CLIA [id number] [address] [place] [address] [place] Basophils/100 WBC (Bld) 0.7 % Normal [facility] Comment on above: Order Comment: Speci men Type: BLOOD SPECIMEN Ordering Facility: [facility] Address: [address] [place] [address] Performed By: #### 4 5066-8 #### [facility] CLIA [id number] [address] [place] [address] [place] Differential cell count method Nom (Bld) Auto Normal [facility] Comment on above: Order Comment: Speci men Type: BLOOD SPECIMEN Ordering Facility: [facility] Address: [address] [place] [address] Performed By: #### 4 5066-8 #### [facility] CLIA [id number] [address] [place] [address] [place] Eosinophils (Bld) [#/Vol] 0.14 10*3/uL Normal <0.46 [facility] Comment on above: Order Comment: Speci men Type: BLOOD SPECIMEN Ordering Facility: [facility] Address: [address] [place], [place] [address] Performed By: #### 4 5066-8 #### [facility] CLIA [id number] [address] [place] [address] [place] Eosinophils/100 WBC (Bld) 1.9 % Normal [facility] Comment on above: Order Comment: Speci men Type: BLOOD SPECIMEN Ordering Facility: [facility] Address: [address] [place] [address] Performed By: #### 4 5066-8 #### [facility] CLIA [id number] [address] [place] [address] [place] Erythrocyte distribution width (RBC) [Ratio] 14.6 % Normal 11.5-15.0 [facility] Comment on above: Order Comment: Speci men Type: BLOOD SPECIMEN Ordering Facility: [facility] Address: [address] [place] [address] Performed By: #### 4 5066-8 #### [facility] CLIA [id number] [address] [place] [address] [place] Hematocrit (Bld) [Volume fraction] 33.2 % Low 36.0-46.0 [facility] Comment on above: Order Comment: Speci men Type: BLOOD SPECIMEN Ordering Facility: [facility] Address: [address] [place] [address] Performed By: #### 4 5066-8 #### [facility] CLIA [id number] [address] [place] [address] [place] Hemoglobin (Bld) [Mass/Vol] 10.1 g/dL Low 11.5-15.5 [facility] Comment on above: Order Comment: Speci men Type: BLOOD SPECIMEN Ordering Facility: [facility] Address: [address] [place] [address] Performed By: #### 4 5066-8 #### [facility] CLIA [id number] [address] [place] [address] [place] Immature granulocytes (Bld) [#/Vol] 0.04 10*3/uL Normal <0.10 [facility] Comment on above: Order Comment: Speci men Type: BLOOD SPECIMEN Ordering Facility: [facility] Address: [address] [place] [address] Performed By: #### 4 5066-8 #### [facility] CLIA [id number] [address] [place] [address] [place] Immature granulocytes/100 WBC (Bld) 0.5 % Normal [facility] Comment on above: Order Comment: Speci men Type: BLOOD SPECIMEN Ordering Facility: [facility] Address: [address] [place] [address] Performed By: #### 4 5066-8 #### [facility] CLIA [id number] [address] [place] [address] [place] Lymphocytes (Bld) [#/Vol] 2.84 10*3/uL Normal 1.00-4.00 [facility] Comment on above: Order Comment: Speci men Type: BLOOD SPECIMEN Ordering Facility: [facility] Address: [address] [place] [address] Performed By: #### 4 5066-8 #### [facility] CLIA [id number] [address] [place] [address] Lymphocytes/100 WBC (Bld) 38.4 % Normal [facility] Comment on above: Order Comment: Speci men Type: BLOOD SPECIMEN Ordering Facility: [facility] Address: [address] [place] [address] Performed By: #### 4 5066-8 #### [facility] CLIA [id number] [address] [place] [address] [place] MCH (RBC) [Entitic mass] 24.1 pg Low 26.0-34.0 [facility] Comment on above: Order Comment: Speci men Type: BLOOD SPECIMEN Ordering Facility: [facility] Address: [address] [place] [address] Performed By: #### 4 5066-8 #### [facility] CLIA [id number] [address] [place] [address] [place] MCHC (RBC) [Mass/Vol] 30.4 g/dL Low 30.5-36.0 [facility] Comment on above: Order Comment: Speci men Type: BLOOD SPECIMEN Ordering Facility: [facility] Address: [address] [place] [address] Performed By: #### 4 5066-8 #### [facility] CLIA [id number] [address] [place] [address] [place] MCV (RBC) [Entitic vol] 79.2 fL Low 80.0-100.0 [facility] Comment on above: Order Comment: Speci men Type: BLOOD SPECIMEN Ordering Facility: [facility] Address: [address] [place] [address] Performed By: #### 4 5066-8 #### [facility] CLIA [id number] [address] [place] [address] [place] Monocytes (Bld) [#/Vol] 0.68 10*3/uL Normal <0.87 [facility] Comment on above: Order Comment: Speci men Type: BLOOD SPECIMEN Ordering Facility: [facility] Address: [address] [place] [address] Performed By: #### 4 5066-8 #### [facility] CLIA [id number] [address] [place] [address] [place] Monocytes/100 WBC (Bld) 9.2 % Normal [facility] Comment on above: Order Comment: Speci men Type: BLOOD SPECIMEN Ordering Facility: [facility] Address: [address] [place] [address] Performed By: #### 4 5066-8 #### [facility] CLIA [id number] [address] [place] [address] [place] Neutrophils (Bld) [#/Vol] 3.65 10*3/uL Normal 1.45-7.50 [facility] Comment on above: Order Comment: Speci men Type: BLOOD SPECIMEN Ordering Facility: [facility] Address: [address] [place] [address] Performed By: #### 4 5066-8 #### [facility] CLIA [id number] [address] [place] [address] [place] Neutrophils/100 WBC (Bld) 49.3 % Normal [facility] Comment on above: Order Comment: Speci men Type: BLOOD SPECIMEN Ordering Facility: [facility] Address: [address] [place] [address] Performed By: #### 4 5066-8 #### [facility] CLIA [id number] [address] [place] [address] [place] Nucleated RBC (Bld) [#/Vol] 10*3/uL Normal <0.01 [facility] Comment on above: Order Comment: Speci men Type: BLOOD SPECIMEN Ordering Facility: [facility] Address: [address] [place] [address] Performed By: #### 4 5066-8 #### [facility] CLIA [id number] [address] [place] [address] [place] Nucleated RBC/100 WBC (Bld) [Ratio] 0.0 /100 WBC Normal [facility] Comment on above: Order Comment: Speci men Type: BLOOD SPECIMEN Ordering Facility: [facility] Address: [address] [place] [address] Performed By: #### 4 5066-8 #### [facility] CLIA [id number] [address] [place] [address] [place] Platelet mean volume (Bld) [Entitic vol] 8.9 fL Low 9.0-12.7 [facility] Comment on above: Order Comment: Speci men Type: BLOOD SPECIMEN Ordering Facility: [facility] Address: [address] [place] [address] Performed By: #### 4 5066-8 #### [facility] CLIA [id number] [address] [place] [address] [place] Platelets (Bld) [#/Vol] 344 10*3/uL Normal 150-400 [facility] Comment on above: Order Comment: Speci men Type: BLOOD SPECIMEN Ordering Facility: [facility] Address: [address] [place] [address] Performed By: #### 4 5066-8 #### [facility] CLIA [id number] [address] [place], [place] [address] [facility] RBC (Bld) [#/Vol] 4.19 10*6/uL Normal 3.90-5.20 [facility] Comment on above: Order Comment: Speci men Type: BLOOD SPECIMEN Ordering Facility: [facility] Address: [address] [place] [address] Performed By: #### 4 5066-8 #### [facility] CLIA [id number] [address] [place], [place] [address] [facility] WBC (Bld) [#/Vol] 7.40 10*3/uL Normal 3.70-11.00 [facility] Comment on above: Order Comment: Speci men Type: BLOOD SPECIMEN Ordering Facility: [facility] Address: [address] [place] [address] Performed By: #### 4 5066-8 #### [facility] CLIA [id number] [address] [place], [place] [address] [facility] CNDSon 10-12-2024 CNDS HNO ID: [id number] Author: DIANDRA MARTINEZ MD Service: General Internal [...] Lovenox, status post colostomy who presented to [facility] ED for accidental overdose. Patient resides in a nursing facility, approximately 1 month ago was taken to [facility] for colostomy after developing bowel obstruction. During [...] escitalopram oxa (more content not included)... Normal [facility] Basic metabolic 2000 panelon 10-11-2024 Anion gap [Moles/Vol] 10 mmol/L Normal 5-16 [facility] Comment on above: Order Comment: Speci stef Type: BLOOD SPECIMENOrdering Facility: [facility] Address: [address] [place] [address] Performed By: #### 2 4321-2 ####[facility] [id number] [place] [address] [place] Calcium [Mass/Vol] 9.2 mg/dL Normal 8.5-10.5 [facility] Comment on above: Order Comment: Florii stef Type: BLOOD SPECIMENOrdering Facility: [facility] Address: [address] [place] [address] Performed By: #### 2 4321-2 ####[facility] [id number] [place] [address] [place] Chloride [Moles/Vol] 101 mmol/L Normal 98-107 [facility] Comment on above: Order Comment: Speci men Type: BLOOD SPECIMENOrdering Facility: [facility] Address: [address] [place] [address] Performed By: #### 2 4321-2 ####[facility] [id number] [place] [id number] [place] CO2 [Moles/Vol] 25 mmol/L Normal 21-32 [facility] Comment on above: Order Comment: Speci men Type: BLOOD SPECIMENOrdering Facility: [facility] Address: [address] [place] [address] Performed By: #### 2 4321-2 ####[facility] LABORATORYCLIA [id number] [address] [place] Creatinine [Mass/Vol] 0.76 mg/dL Normal 0.51-0.95 [facility] Comment on above: Order Comment: Speci men Type: BLOOD SPECIMENOrdering Facility: [facility] Address: [address] [place] [address] Result Comment: Marissa ents receiving either N-Acetylcysteine (NAC) or Metamizole prior to venipuncture, may have falsely depressed results. Performed By: #### 2 4321-2 ####[facility] LABORATORYCLIA [id number] [place] [address] [place] Creatinine and Glomerular filtration rate.predicted panel (S/P/Bld) 101 mL/min/1.73m??? Normal >=60 [facility] Comment on above: Order Comment: Speci men Type: BLOOD SPECIMENOrdering Facility: [facility] Address: [address] [place] [address] Result Comment: Zeny mated Glomerular Filtration Rate [...] actual GFR. Performed By: #### 2 4321-2 ####[facility] LABORATORYCLIA [id number] [place] [id number] [place] Glucose [Mass/Vol] 102 mg/dL High 70-100 [facility] Comment on above: Order Comment: Speci stef Type: BLOOD SPECIMENOrdering Facility: [facility] Address: [address] [id number] Result Comment: The [place] Diabetes Association (ADA) provides guidance for cutoff [...] Standards of Medical Care in Diabetes 2016, [place] Diabetes Association. Diabetes Care. 2016.39(Suppl 1). Results may be falsely elevated after the administration of Sulfapyridine. Results may be falsely depressed after the administration of Sulfasalazine. Performed By: #### 2 4321-2 ####[facility] LABORATORYCLIA [id number] [place] [id number] [place] Potassium [Moles/Vol] 3.0 mmol/L Low 3.5-5.1 [facility] Comment on above: Order Comment: Florii men Type: BLOOD SPECIMENOrdering Facility: [facility] Address: [address] [place] [address] Performed By: #### 2 4321-2 ####[facility] LABORATORYCLIA [id number] [place] [id number] [place] Sodium [Moles/Vol] 136 mmol/L Normal 136-145 [facility] Comment on above: Order Comment: Florii stef Type: BLOOD SPECIMENOrdering Facility: [facility] Address: [address] [place] [address] Performed By: #### 2 4321-2 ####[facility] LABORATORYCLIA [id number] [place] [address] [place] Urea nitrogen [Mass/Vol] 6 mg/dL Low 01-19 [facility] Comment on above: Order Comment: Speci men Type: BLOOD SPECIMENOrdering Facility: [facility] Address: [address] [place] [address] Performed By: #### 2 4321-2 ####[facility] LABORATORYCLIA [id number] [place] [address] [place] CBC W Auto Differential pane l (Bld)on 10-11-2024 Basophils (Bld) [#/Vol] 0.03 10*3/uL Normal <0.11 [facility] Comment on above: Order Comment: Speci men Type: BLOOD SPECIMENOrdering Facility: [facility] Address: [address] [place] [address] Performed By: #### 5 7021-8 ####[facility] LABORATORYCLIA [id number] [place] [address] [place] Basophils/100 WBC (Bld) 0.5 % Normal [facility] Comment on above: Order Comment: Speci men Type: BLOOD SPECIMENOrdering Facility: [facility] Address: [address] [place] [address] Performed By: #### 5 7021-8 ####[facility] LABORATORYCLIA [id number] [address] [place] Differential cell count method Nom (Bld) Auto Normal [facility] Comment on above: Order Comment: Speci men Type: BLOOD SPECIMENOrdering Facility: [facility] Address: [address] [place] [address] Performed By: #### 5 7021-8 ####[facility] LABORATORYCLIA [id number] [place] [address] [place] Eosinophils (Bld) [#/Vol] 0.09 10*3/uL Normal <0.46 [facility] Comment on above: Order Comment: Speci men Type: BLOOD SPECIMENOrdering Facility: [facility] Address: [address] [place] [address] Performed By: #### 5 7021-8 ####[facility] LABORATORYCLIA [id number] [place] [id number] [place] Eosinophils/100 WBC (Bld) 1.5 % Normal [facility] Comment on above: Order Comment: Speci men Type: BLOOD SPECIMENOrdering Facility: [facility] Address: [address] [place] [address] Performed By: #### 5 7021-8 ####[facility] LABORATORYCLIA [id number] [address] [place] Erythrocyte distribution width (RBC) [Ratio] 14.8 % Normal 11.5-15.0 [facility] Comment on above: Order Comment: Speci men Type: BLOOD SPECIMENOrdering Facility: [facility] Address: [address] [place] [address] Performed By: #### 5 7021-8 ####[facility] LABORATORYCLIA [id number] [place] [address] [place] Hematocrit (Bld) [Volume fraction] 29.6 % Low 36.0-46.0 [facility] Comment on above: Order Comment: Speci men Type: BLOOD SPECIMENOrdering Facility: [facility] Address: [address] [place] [address] Performed By: #### 5 7021-8 ####[facility] LABORATORYCLIA [id number] [place] [address] [place] Hemoglobin (Bld) [Mass/Vol] 9.2 g/dL Low 11.5-15.5 [facility] Comment on above: Order Comment: Speci men Type: BLOOD SPECIMENOrdering Facility: [facility] Address: [address] [place] [address] Performed By: #### 5 7021-8 ####[facility] LABORATORYCLIA [id number] [place] [id number] [place] Immature granulocytes (Bld) [#/Vol] 0.03 10*3/uL Normal <0.10 [facility] Comment on above: Order Comment: Speci men Type: BLOOD SPECIMENOrdering Facility: [facility] Address: [address] [place] [address] Performed By: #### 5 7021-8 ####[facility] LABORATORYCLIA [id number] [place] [address] [place] Immature granulocytes/100 WBC (Bld) 0.5 % Normal [facility] Comment on above: Order Comment: Speci men Type: BLOOD SPECIMENOrdering Facility: [facility] Address: [address] [place] [address] Performed By: #### 5 7021-8 ####[facility] LABORATORYCLIA [id number] [place] [address] [place] Lymphocytes (Bld) [#/Vol] 1.59 10*3/uL Normal 1.00-4.00 [facility] Comment on above: Order Comment: Speci men Type: BLOOD SPECIMENOrdering Facility: [facility] Address: [address] [place] [address] Performed By: #### 5 7021-8 ####[facility] LABORATORYCLIA [id number] [address] [place] Lymphocytes/100 WBC (Bld) 27.2 % Normal [facility] Comment on above: Order Comment: Speci men Type: BLOOD SPECIMENOrdering Facility: [facility] Address: [address] [place] [address] Performed By: #### 5 7021-8 ####[facility] LABORATORYCLIA [id number] [place] [address] [place] MCH (RBC) [Entitic mass] 24.2 pg Low 26.0-34.0 [facility] Comment on above: Order Comment: Speci men Type: BLOOD SPECIMENOrdering Facility: [facility] Address: [address] [place] [address] Performed By: #### 5 7021-8 ####[facility] LABORATORYCLIA [id number] [place] [address] [place] MCHC (RBC) [Mass/Vol] 31.1 g/dL Normal 30.5-36.0 [facility] Comment on above: Order Comment: Speci men Type: BLOOD SPECIMENOrdering Facility: [facility] Address: [address] [place] [address] Performed By: #### 5 7021-8 ####[facility] LABORATORYCLIA [id number] [place] [address] [place] MCV (RBC) [Entitic vol] 77.9 fL Low 80.0-100.0 [facility] Comment on above: Order Comment: Speci men Type: BLOOD SPECIMENOrdering Facility: [facility] Address: [address] [place] [address] Performed By: #### 5 7021-8 ####[facility] LABORATORYCLIA [id number] [place] [address] [place] Monocytes (Bld) [#/Vol] 0.62 10*3/uL Normal <0.87 [facility] Comment on above: Order Comment: Speci men Type: BLOOD SPECIMENOrdering Facility: [facility] Address: [address] [place] [address] Performed By: #### 5 7021-8 ####[facility] LABORATORYCLIA [id number] [address] [place] Monocytes/100 WBC (Bld) 10.6 % Normal [facility] Comment on above: Order Comment: Speci men Type: BLOOD SPECIMENOrdering Facility: [facility] Address: [address] [place] [address] Performed By: #### 5 7021-8 ####[facility] LABORATORYCLIA [id number] [place] [address] [place] Neutrophils (Bld) [#/Vol] 3.48 10*3/uL Normal 1.45-7.50 [facility] Comment on above: Order Comment: Speci men Type: BLOOD SPECIMENOrdering Facility: [facility] Address: [address] [place] [address] Performed By: #### 5 7021-8 ####[facility] LABORATORYCLIA [id number] [place] [id number] [facility] Neutrophils/100 WBC (Bld) 59.7 % Normal [facility] Comment on above: Order Comment: Speci men Type: BLOOD SPECIMENOrdering Facility: [facility] Address: [address] [place] [address] Performed By: #### 5 7021-8 ####[facility] LABORATORYCLIA [id number] [place] [address] [place] Nucleated RBC (Bld) [#/Vol] 10*3/uL Normal <0.01 [facility] Comment on above: Order Comment: Speci men Type: BLOOD SPECIMENOrdering Facility: [facility] Address: [address] [place] [address] Performed By: #### 5 7021-8 ####[facility] LABORATORYCLIA [id number] [address] [place] Nucleated RBC/100 WBC (Bld) [Ratio] 0.0 /100 WBC Normal [facility] Comment on above: Order Comment: Speci men Type: BLOOD SPECIMENOrdering Facility: [facility] Address: [address] [place] [address] Performed By: #### 5 7021-8 ####[facility] LABORATORYCLIA [id number] [place] [address] [place] Platelet mean volume (Bld) [Entitic vol] 9.3 fL Normal 9.0-12.7 [facility] Comment on above: Order Comment: Speci men Type: BLOOD SPECIMENOrdering Facility: [facility] Address: [address] [place] [address] Performed By: #### 5 7021-8 ####[facility] LABORATORYCLIA [id number] [place] [address] [place] Platelets (Bld) [#/Vol] 362 10*3/uL Normal 150-400 [facility] Comment on above: Order Comment: Speci men Type: BLOOD SPECIMENOrdering Facility: [facility] Address: [address] [id number] Performed By: #### 5 7021-8 ####[facility] LABORATORYCLIA [id number] [address] OF [facility] RBC (Bld) [#/Vol] 3.80 10*6/uL Low 3.90-5.20 [facility] Comment on above: Order Comment: Speci men Type: BLOOD SPECIMENOrdering Facility: [facility] Address: [address] [place] [address] Performed By: #### 5 7021-8 ####[facility] LABORATORYCLIA [id number] [address] OF [facility] WBC (Bld) [#/Vol] 5.84 10*3/uL Normal 3.70-11.00 [facility] Comment on above: Order Comment: Speci men Type: BLOOD SPECIMENOrdering Facility: [facility] Address: [address] [place] [address] Performed By: #### 5 7021-8 ####[facility] LABORATORYCLIA [id number] [address] OF [facility] ALLIED HEALTHon 10-10-2024 ALLIED HEALTH HNO ID: [id number] Author: SANG CASE RN Service: Wound/Ostomy Author [...] Black Pt states she sees vascular at [facility] and will go there on the for another follow up. States she is using betadine for the toes/heel. RECOMMENDATIONS: bed rubber Communication Order; Dressing recommendations require a provider's order, please obtain and place as a Dressing Care order. Right and left toe and Left Heel eschar. Rosa Sanchez with betadine daily. If you notice drainage anywhere, apply silver alginate and gauze-change daily. Maintain pressure prevention interventions-offload heels with pillows or Truevue boots.. Re-consult Wound Care if skin or wounds deteriorate further or if new problems arise. [facility] ALLIED HEALTH HNO ID: [id number] Author: SANG CASE RN Service: Wound/Ostomy Author [...] sting skin prep pad. Apply Augustine paste #28004 into any creases at 3 and 9 o'clock. Apply Augustine #8815 adapt ring around the stoma. Apply pouching system: Pouching System: There are 2 pouches for the patient to try 1) #07612 Sensura [place] 2 piece Flex High Output ostomy pouch with soft outlet-included a clip in case the drainage is too thick for the outlet. In this case, just cut off the spout and use a clip to secure/empty. #01769 Convex light ostomy 2 piece flex with belt tabs 2) can also try #45658 JERONIMO Ultramax cut to fit large deep convex pouch Wear Time Goal: 3-4 days If additional ostomy supplies are needed, please call [employer] ([phone]) for above mentioned supplies. If supplies are unavailable in [employer], please secure chat [facility] Wound Care Nurses or call extension [phone] to request more supplies. Normal [facility] Basic metabolic 2000 panelon 10-10-2024 Anion gap [Moles/Vol] 9 mmol/L Normal 11-09 [facility] Comment on above: Order Comment: Speci men Type: BLOOD SPECIMEN [facility] Address: [address] [place], [place] [address] [address] Performed By: #### 2 4321-2 #### [facility] CLIA [id number] [address] [place], [place] [address] [place] Calcium [Mass/Vol] 9.2 mg/dL Normal 8.5-10.5 [facility] Comment on above: Order Comment: Speci men Type: BLOOD SPECIMEN [facility] Address: [address] [place] [address] Performed By: #### 2 4321-2 #### [facility] CLIA [id number] [address] [place] [address] [place] Chloride [Moles/Vol] 99 mmol/L Normal 98-107 [facility] Comment on above: Order Comment: Speci men Type: BLOOD SPECIMEN [facility] Address: [address] [place] [address] Performed By: #### 2 4321-2 #### [facility] CLIA [id number] [address] [place] [address] [place] CO2 [Moles/Vol] 22 mmol/L Normal 21-32 [facility] Comment on above: Order Comment: Speci men Type: BLOOD SPECIMEN [facility] Address: [address] [place] [address] Performed By: #### 2 4321-2 #### [facility] CLIA [id number] [address] [place] [address] [place] Creatinine [Mass/Vol] 0.76 mg/dL Normal 0.51-0.95 [facility] Comment on above: Order Comment: Speci men Type: BLOOD SPECIMEN [facility] Address: [address] [place] [address] Result Comment: Marissa ents receiving either N-Acetylcysteine (NAC) or Metamizole prior to venipuncture, may have falsely depressed results. Performed By: #### 2 4321-2 #### [facility] CLIA [id number] [address] [place], [place] [address] [place] Creatinine and Glomerular filtration rate.predicted panel (S/P/Bld) 101 mL/min/1.73m??? Normal >=60 [facility] Comment on above: Order Comment: Dora finch Type: BLOOD SPECIMEN [facility] Address: [address] [place] [address] Result Comment: Zeny mated Glomerular Filtration Rate [...] GFR. Performed By: #### 2 4321-2 #### [facility] CLIA [id number] [address] [place] [address] [place] Glucose [Mass/Vol] 88 mg/dL Normal 70-100 [facility] Comment on above: Order Comment: Dora finch Type: BLOOD SPECIMEN [facility] Address: [address] [place] [address] Result Comment: The [place] Diabetes Association (ADA) provides guidance for cutoff [...] Standards of Medical Care in Diabetes 2016, [place] [employer]. Diabetes Care. 2016.39(Suppl 1). Results may be falsely elevated after the administration of Sulfapyridine. Results may be falsely depressed after the administration of Sulfasalazine. Performed By: #### 2 4321-2 #### [facility] CLIA [id number] [address] [place] [address] [place] Potassium [Moles/Vol] 3.4 mmol/L Low 3.5-5.1 [facility] Comment on above: Order Comment: Speci men Type: BLOOD SPECIMEN [facility] Address: [address] [place] [address] Performed By: #### 2 4321-2 #### [facility] CLIA [id number] [address] [place] [address] [place] Sodium [Moles/Vol] 130 mmol/L Low 136-145 [facility] Comment on above: Order Comment: Speci men Type: BLOOD SPECIMEN [facility] Address: [address] [place] [address] Performed By: #### 2 4321-2 #### [facility] CLIA [id number] [address] [place] [address] [place] Urea nitrogen [Mass/Vol] 9 mg/dL Normal 01-19 [facility] Comment on above: Order Comment: Speci men Type: BLOOD SPECIMEN [facility] Address: [address] [place] [address] Performed By: #### 2 4321-2 #### [facility] CLIA [id number] [address] [place] [address] [place] CBC W Auto Differential pane l (Bld)on 10-10-2024 Basophils (Bld) [#/Vol] 0.05 10*3/uL Normal <0.11 [facility] Comment on above: Order Comment: Speci men Type: BLOOD SPECIMEN [facility] Address: [address] [place] [address] Performed By: #### 5 7021-8 #### [facility] CLIA [id number] [address] [place] [address] [place] Basophils/100 WBC (Bld) 0.7 % Normal [facility] Comment on above: Order Comment: Speci men Type: BLOOD SPECIMEN [facility] Address: [address] [place] [address] Performed By: #### 5 7021-8 #### [facility] CLIA [id number] [address] [place] [address] [place] Differential cell count method Nom (Bld) Auto Normal [facility] Comment on above: Order Comment: Speci men Type: BLOOD SPECIMEN [facility] Address: [address] [place] [address] Performed By: #### 5 7021-8 #### [facility] CLIA [id number] [address] [place] [address] [place] Eosinophils (Bld) [#/Vol] 0.07 10*3/uL Normal <0.46 [facility] Comment on above: Order Comment: Speci men Type: BLOOD SPECIMEN [facility] Address: [address] [place] [address] Performed By: #### 5 7021-8 #### [facility] CLIA [id number] [address] [place] [address] [place] Eosinophils/100 WBC (Bld) 1.0 % Normal [facility] Comment on above: Order Comment: Speci men Type: BLOOD SPECIMEN [facility] Address: [address] [place] [address] Performed By: #### 5 7021-8 #### [facility] CLIA [id number] [address] [place] [address] [place] Erythrocyte distribution width (RBC) [Ratio] 14.9 % Normal 11.5-15.0 [facility] Comment on above: Order Comment: Speci men Type: BLOOD SPECIMEN [facility] Address: [address] [place] [address] Performed By: #### 5 7021-8 #### [facility] CLIA [id number] [address] [place] [address] [place] Hematocrit (Bld) [Volume fraction] 33.3 % Low 36.0-46.0 [facility] Comment on above: Order Comment: Speci men Type: BLOOD SPECIMEN [facility] Address: [address] [place] [address] Performed By: #### 5 7021-8 #### [facility] CLIA [id number] [address] [place] [address] [place] Hemoglobin (Bld) [Mass/Vol] 10.4 g/dL Low 11.5-15.5 [facility] Comment on above: Order Comment: Speci men Type: BLOOD SPECIMEN [facility] Address: [address] [place] [address] Performed By: #### 5 7021-8 #### [facility] CLIA [id number] [address] [place] [address] [place] Immature granulocytes (Bld) [#/Vol] 10*3/uL Normal <0.10 [facility] Comment on above: Order Comment: Speci men Type: BLOOD SPECIMEN [facility] Address: [address] [place] [address] Performed By: #### 5 7021-8 #### [facility] CLIA [id number] [address] [place] [address] [place] Immature granulocytes/100 WBC (Bld) 0.3 % Normal [facility] Comment on above: Order Comment: Speci men Type: BLOOD SPECIMEN [facility] Address: [address] [place] [address] Performed By: #### 5 7021-8 #### [facility] CLIA [id number] [address] [place] [address] [place] Lymphocytes (Bld) [#/Vol] 2.17 10*3/uL Normal 1.00-4.00 [facility] Comment on above: Order Comment: Speci men Type: BLOOD SPECIMEN [facility] Address: [address] [place] [address] Performed By: #### 5 7021-8 #### [facility] CLIA [id number] [address] [place] [address] [place] Lymphocytes/100 WBC (Bld) 30.6 % Normal [facility] Comment on above: Order Comment: Speci men Type: BLOOD SPECIMEN [facility] Address: [address] [place] [address] Performed By: #### 5 7021-8 #### [facility] CLIA [id number] [address] [place] [place] [address] [place] MCH (RBC) [Entitic mass] 24.3 pg Low 26.0-34.0 [facility] Comment on above: Order Comment: Speci men Type: BLOOD SPECIMEN Ordering Facility: [facility] Address: [address] [place] [address] Performed By: #### 5 7021-8 #### [facility] CLIA [id number] [address] [place] [address] [place] MCHC (RBC) [Mass/Vol] 31.2 g/dL Normal 30.5-36.0 [facility] Comment on above: Order Comment: Speci men Type: BLOOD SPECIMEN Ordering Facility: [facility] Address: [address] [place] [address] Performed By: #### 5 7021-8 #### [facility] CLIA [id number] [address] [place] [address] STATES OF [facility] MCV (RBC) [Entitic vol] 77.8 fL Low 80.0-100.0 [facility] Comment on above: Order Comment: Speci men Type: BLOOD SPECIMEN Ordering Facility: [facility] Address: [address] [place] [address] Performed By: #### 5 7021-8 #### [facility] CLIA [id number] [address] [place] [address] [place] Monocytes (Bld) [#/Vol] 0.77 10*3/uL Normal <0.87 [facility] Comment on above: Order Comment: Speci men Type: BLOOD SPECIMEN Ordering Facility: [facility] Address: [address] [place] [address] Performed By: #### 5 7021-8 #### [facility] CLIA [id number] [address] [place] [address] OF [place] Monocytes/100 WBC (Bld) 10.9 % Normal [facility] Comment on above: Order Comment: Speci men Type: BLOOD SPECIMEN Ordering Facility: [facility] Address: [address] [place] [address] Performed By: #### 5 7021-8 #### [facility] CLIA [id number] [address] [place] [address] [place] Neutrophils (Bld) [#/Vol] 4.01 10*3/uL Normal 1.45-7.50 [facility] Comment on above: Order Comment: Speci men Type: BLOOD SPECIMEN Ordering Facility: [facility] Address: [address] [place] [address] Performed By: #### 5 7021-8 #### [facility] CLIA [id number] [address] [place] [address] [place] Neutrophils/100 WBC (Bld) 56.5 % Normal [facility] Comment on above: Order Comment: Speci men Type: BLOOD SPECIMEN Ordering Facility: [facility] Address: [address] [place] [address] Performed By: #### 5 7021-8 #### [facility] CLIA [id number] [address] [place] [address] [place] Nucleated RBC (Bld) [#/Vol] 10*3/uL Normal <0.01 [facility] Comment on above: Order Comment: Speci men Type: BLOOD SPECIMEN Ordering Facility: [facility] Address: [address] [place] [address] Performed By: #### 5 7021-8 #### [facility] CLIA [id number] [address] [place] [address] [place] Nucleated RBC/100 WBC (Bld) [Ratio] 0.0 /100 WBC Normal [facility] Comment on above: Order Comment: Speci men Type: BLOOD SPECIMEN Ordering Facility: [facility] Address: [address] [place] [address] Performed By: #### 5 7021-8 #### [facility] CLIA [id number] [address] [place] [address] [place] Platelet mean volume (Bld) [Entitic vol] 8.8 fL Low 9.0-12.7 [facility] Comment on above: Order Comment: Speci men Type: BLOOD SPECIMEN Ordering Facility: [facility] Address: [address] [place] [address] Performed By: #### 5 7021-8 #### [facility] CLIA [id number] [address] [place] [address] [place] Platelets (Bld) [#/Vol] 380 10*3/uL Normal 150-400 [facility] Comment on above: Order Comment: Speci men Type: BLOOD SPECIMEN Ordering Facility: [facility] Address: [address] [place] [address] Performed By: #### 5 7021-8 #### [facility] CLIA [id number] [address] [place] [address] [place] RBC (Bld) [#/Vol] 4.28 10*6/uL Normal 3.90-5.20 [facility] Comment on above: Order Comment: Speci men Type: BLOOD SPECIMEN Ordering Facility: [facility] Address: [address] [place] [address] Performed By: #### 5 7021-8 #### [facility] CLIA [id number] [address] [place] [address] [place] WBC (Bld) [#/Vol] 7.09 10*3/uL Normal 3.70-11.00 [facility] Comment on above: Order Comment: Speci men Type: BLOOD SPECIMEN Ordering Facility: [facility] Address: [address] [place] [address] Performed By: #### 5 7021-8 #### [facility] CLIA [id number] [address] [place] [address] CONSULTon 10-10-2024 CONSULT HNO ID: [id number] Author: RAKESH DAVIS APRN.BED RUBBER Service: Gastroenterology Author Type: Nurse Practitioner Type: [...] decrease to once daily until seen by program director/morning show host as an outpatient. Once her anticoagulation can [...] extremity lateral fasciotomy closures 08/23/2024, presented to [facility] 10/09 as a transfer from [facility] [...] Narcan x2 doses. Patient was taken to [facility] ED and transferred to [facility] for GI evaluation. The patient is [...] state on Loven (more content not included)... [facility] CONSULT PROGon 10-10-2024 CONSULT PROG HNO ID: [id number] Author: FREDRICK SALAS RPh Service: Pharmacy Author [...] if there are questions. Fredrick Salas RPh [facility] NUTRITIONon 10-10-2024 NUTRITION HNO ID: [id number] Author: KENYA SANTAMARIA RD Service: Nutrition Therapy [...] Weight Type: Current weight Estimated kilocalorie needs: 4604-9050 Calorie Calculation Method: 20-25 kcals/kg Estimated protein [...] October 10, 2024 TIME: 2:23 PM Normal [facility] APTTon 10-09-2024 aPTT Coag (Bld) [Time] 30.8 s Normal 25.4 - 38.4 [facility] Comment on above: Performed By: #### 2 07869 #### [facility],[address] [place] [address] 30814 CBC + DIFFon 10-09-2024 Baso # 0.06 x10EE3/UL Normal 0.00 - 0.10 [facility] Comment on above: Performed By: #### 2 69818 #### [facility],[address] [place] [address] 75573 Basophils/100 WBC (Bld) 0.4 % Normal 0.0 - 2.0 [facility] Comment on above: Performed By: #### 2 38484 #### [facility],[address] [place] [address] 34085 CBC + DIFF Normal [facility] Comment on above: Result Comment: CBC- COMPLETE BLOOD COUNT Performed By: #### 2 47695 #### [facility],[address] [place] [address] 34711 EO # 0.11 x10EE3/UL Normal 0.00 - 0.50 [facility] Comment on above: Performed By: #### 2 58468 #### [facility],[address] [place] [address] 00767 Eosinophils/100 WBC (Bld) 0.6 % Normal 0.0 - 7.0 [facility] Comment on above: Performed By: #### 2 36330 #### [facility],[address] [place] [address] 71354 Erythrocyte distribution width (RBC) [Ratio] 16.5 % High 12.0 - 15.6 [facility] Comment on above: Performed By: #### 2 50241 #### [facility],[address] [place] [address] 90031 Hematocrit (Bld) [Volume fraction] 37.0 % Normal 34.0 - 46.0 [facility] Comment on above: Performed By: #### 2 28112 #### [facility],[address] [place] [address] 67586 Hemoglobin (Bld) [Mass/Vol] 12.3 g/dL Normal 12.0 - 16.0 [facility] Comment on above: Performed By: #### 2 23061 #### [facility],[address] [place] [address] Lymph # 3.19 x10EE3/UL High 0.80 - 2.80 [facility] Comment on above: Performed By: #### 2 78204 #### [facility],[address] [place], [place] [address] Lymphocytes/100 WBC (Bld) 18.0 % Low 20.0 - 45.0 [facility] Comment on above: Performed By: #### 2 90570 #### [facility],[address] [place] [address] 82347 MANUAL DIFF N/A Normal [facility] Comment on above: Performed By: #### 2 10021 #### [facility],[address] [place] [address] 18609 MCH (RBC) [Entitic mass] 25 pg Low 27 - 33 [facility] Comment on above: Performed By: #### 2 35311 #### [facility],[address] [place] [address] 54868 MCHC 33 X10 3 Normal 32 - 36 [facility] Comment on above: Performed By: #### 2 70256 #### [facility],[address] [place] [address] 97266 MCV (RBC) [Entitic vol] 76 fL Low 80 - 99 [facility] Comment on above: Performed By: #### 2 03130 #### [facility],[address] [place] [address] 94026 Pickett # 1.03 x10EE3/UL High 0.20 - 1.00 [facility] Comment on above: Performed By: #### 2 01095 #### [facility],[address] [place] [address] 53727 MONOS % 5.8 % Normal 0.0 - 10.0 [facility] Comment on above: Performed By: #### 2 86382 #### [facility],[address] [place] [address] 19880 Morphology Stan (Bld) [Interp] N/A Normal [facility] Comment on above: Performed By: #### 2 44853 #### [facility],[address] [place] [address] 80532 Neut # 13.36 x10EE3/UL High 1.50 - 7.10 [facility] Comment on above: Performed By: #### 2 55990 #### [facility],[address] [place] [address] 12736 Neutrophils/100 WBC (Bld) 75.2 % Normal 46.0 - 76.0 [facility] Comment on above: Performed By: #### 2 60358 #### [facility],[address] [place] [address] 57024 PLATELET 657 x10EE3/UL High 150 - 450 [facility] Comment on above: Performed By: #### 2 10202 #### [facility],[address] [place] [address] 55255 Platelet mean volume (Bld) [Entitic vol] 7.7 fL Normal 6.6 - 10.5 [facility] Comment on above: Result Comment: AUTO MATED DIFFERENTIAL Performed By: #### 2 23187 #### [facility],[address] [place] [address] 78850 RBC 4.85 x 10EE6/UL Normal 4.10 - 5.30 [facility] Comment on above: Performed By: #### 2 74070 #### [facility],[address] [place] [address] 51965 WBC 17.8 x 10EE3/UL High 4.5 - 10.8 [facility] Comment on above: Performed By: #### 2 58669 #### [facility],[address] [place], [place] [address] CMP with eGFRon 10-09-2024 AGE 39 years Normal [facility] Comment on above: Performed By: #### 2 67954 #### [facility],[address] [place] [address] 73900 Albumin [Mass/Vol] 3.1 g/dL Low 3.4 - 5.0 [facility] Comment on above: Performed By: #### 2 95026 #### [facility],[address] [place] [address] Albumin/Globulin [Mass ratio] 0.5 {ratio} Low 0.9 - 1.6 [facility] Comment on above: Performed By: #### 2 94559 #### [facility],[address] [place] [address] 60655 ALK PHOS 175 U/L High 46 - 116 [facility] Comment on above: Performed By: #### 2 16775 #### [facility],[address] [place] [address] 35582 ALT [Catalytic activity/Vol] 65 U/L High 16 - 63 [facility] Comment on above: Performed By: #### 2 29558 #### [facility],[address] [place] [address] 83206 Anion gap [Moles/Vol] 18 mmol/L Normal 10 - 20 [facility] Comment on above: Performed By: #### 2 52411 #### [facility],[address] [place] [address] 56581 AST [Catalytic activity/Vol] 23 U/L Normal 13 - 39 [facility] Comment on above: Performed By: #### 2 97311 #### [facility],[address] [place] [address] 39788 B/C RATIO 12 ratio Normal 0 - 30 [facility] Comment on above: Performed By: #### 2 10904 #### [facility],[address] [place] [address] 88899 Bilirubin [Mass/Vol] 0.7 mg/dL Normal 0.2 - 1.0 [facility] Comment on above: Performed By: #### 2 27765 #### [facility],[address] [place] [address] 99173 Calcium [Mass/Vol] 9.7 mg/dL Normal 8.5 - 10.1 [facility] Comment on above: Performed By: #### 2 26019 #### [facility],[address] [place] [address] 74882 Chloride [Moles/Vol] 94 mmol/L Low 98 - 107 [facility] Comment on above: Performed By: #### 2 22106 #### [facility],[address] [place] [address] 24503 CMP with eGFR Normal [facility] Comment on above: Result Comment: COMP REHENSIVE METABOLIC PANEL Performed By: #### 2 10772 #### [facility],[address] [place] [address] 15620 CO2 [Moles/Vol] 25.4 mmol/L Normal 21.0 - 32.0 [facility] Comment on above: Performed By: #### 2 12256 #### [facility],[address] [place] [address] 22099 Creatinine [Mass/Vol] 1.72 mg/dL High 0.55 - 1.02 [facility] Comment on above: Performed By: #### 2 36209 #### [facility],[address] [place] [address] 72660 eGFR 33 ML/MINUTE Low 60 - 999 [facility] Comment on above: Performed By: #### 2 80633 #### [address] [address] eGFR(AA) 40 ML/MINUTE Low 60 - 999 [facility] [...] AGE AND OLDER. Performed By: #### 2 94764 #### [address] [address] Globulin (S) [Mass/Vol] 6.6 g/dL High 1.5 - 3.8 [facility] Comment on above: Performed By: #### 2 96129 #### [address] [address] Glucose [Mass/Vol] 245 mg/dL High 74 - 106 [facility] Comment on above: Performed By: #### 2 63095 #### [place] [id number] Potassium [Moles/Vol] 2.3 mmol/L Critically low 3.5 - 5.1 [facility] Comment on above: Result Comment: { CA LLED TO NATHANAEL REDMOND BY LMM @ 0937 { READ BACK BY NATHANAEL REDMOND RA 0979 Performed By: #### 2 94165 #### [address] [address] Protein [Mass/Vol] 9.7 g/dL High 6.4 - 8.2 [facility] Comment on above: Performed By: #### 2 75815 #### [place] [phone] Sodium [Moles/Vol] 135 mmol/L Low 136 - 145 [facility] Comment on above: Performed By: #### 2 07862 #### [facility],[address] [place] [address] 19841 Urea nitrogen [Mass/Vol] 21 mg/dL High 7 - 18 [facility] Comment on above: Performed By: #### 2 07238 #### [facility],[address] [place] [address] 19550 CONSULT PROGon 10-09-2024 CONSULT PROG HNO ID: [id number] Author: MORENA ALLEN RPh Service: Pharmacy Author [...] 10/09/20242039 11.1 08/22/20242024 12.7 Morena Allen [facility] CT ABDOMEN/PELVIS WO 10-09 CT ABDOMEN/PELVIS WO [place] [address] Patient: DALY EVANS Phone#: : 1985 Age: 39 Gender: F Pt. Type: ER Account: [id number] Location: 2 Ordering: FARZANEH DELATORRE Exam Date: 10/09/2024/10:19 Family Phys: MAGGIE PUTNAM Charge Code: [id number] Physician: Meade Order #: [id number] Dose#: 13.40 mGy PROCEDURE: CT ABDOMEN/PELVIS WITHOUT CONTRAST COMPARISON: [facility], CT, ABDOMEN/PELVIS W CON, 09/17/2024, 5:25. [...] 39 Gender: F Pt. Type: ER Account: [id number] Location: [facility] Ordering: FARZANEH DELATORRE Exam Date: 10/09/2024/10:19 Family Phys: MAGGIE INDY Charge Code: 481784 Physician: Meade Order #: [id number] Dose#: 13.40 mGy 2. No appreciable acute intra-abdominal or pelvic abnormality within the limits of a noncontrast exam. Dictated by: Alicia Maya MD on 10/09/2024 at 10:49 Approved by: Alicia Maya MD on 10/09/2024 at 10:57 Normal [facility] Creatinine + eGFR Pnl SerPlB ldon 10-09-2024 Creatinine and Glomerular filtration rate.predicted panel (S/P/Bld) 74 mL/min/1.73m??? Normal >=60 [facility] Comment on above: Order Comment: Speci men Type: BLOOD SPECIMEN Ordering Facility: [facility] Address: [address] [place] [id number] Result Comment: Zeny mated Glomerular Filtration Rate [...] GFR. Performed By: #### 4 5066-8 #### [facility] CLIA [id number] [address] [place] [address] Creatinine and Glomerular fi ltration rate.predicted panel (S/P/Bld)on 10-09-2024 Creatinine [Mass/Vol] 0.99 mg/dL High 0.51-0.95 [facility] Comment on above: Order Comment: Speci men Type: BLOOD SPECIMEN Ordering Facility: [facility] Address: [address] [place] [address] Result Comment: Marissa ents receiving either N-Acetylcysteine (NAC) or Metamizole prior to venipuncture, may have falsely depressed results. 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 1 of 4 Drilling Machine Operator Medication Ordered Medication Administration Date/Time Reglan IVP [...] Ariella Santamaria R.N. medication. - 12:24 Ariella Snatamaria R.N. Not Scanned 13:10/09 Medication Discontinued: IV [...] 13:35 Ariella Santamaria R.N. 2 of 4 Drilling Machine Operator Medication Ordered Medication Administration Date/Time Haloperidol IVP [...] 13:29 Johnathan (more content not included)... Normal [facility] ED NURSES CLINICAL NOTEon ED NURSES CLINICAL NOTE Nurse Narrative Nurse Clinical Narrative [address] [address] [id number] 10/09/2024 08:13:00 Patient: DALY EVANS Sex: Female : 1985 Age: 39y Disposition: Transfer to [facility] Disposition Decision Time: 12:52 10/09/2024 Departure Time: 15:44 10/09/2024 TRIAGE Arrived by EMS. Historian: (shelter records and patient). Primary physician (Krystian). Triage time: 08:21 10/09/2024. Acuity: LEVEL 2. Chief Complaint: ACCIDENTAL INGESTION (Pt received 115mg of methadone from a nurse at the shelter that was not prescribed to her.). This [...] subcutaneous syringe: twice a day. (give per CT MAR dose of 0.95ml) -- 09:10/09/24 CHARLY [...] R.N. 2 of 8 Nurse Narrative Allergies: [place] -- 08:31 10/09/24 [place] Jessica Vidales R.N. Home Medications/Allergy Information Source: patient, shelter record -- 08:28 10/09/24 CHARLY Vidales R.N. [...] -- 09:02 (more content not included)... Normal [facility] ED ORDER SHEET (CPOE ONLY)on 10-09-2024 ED ORDER SHEET (CPOE ONLY) Order Sheet Order Sheet [address] [address] [id number] 10/09/2024 Patient: DALY EVANS Sex: Female : 1985 Age: 39y MEASUREMENTS: Wt: 90.7 kg, Ht/Jean-Paul: 67.0 in, BMI: 31.32 ALLERGIES: [place] MEDICATION/IV/DRIP/FLUID ORDERS Order Description Priority Entered Acknowledged [...] l Farzaneh Delatorre D.O. 10/09/2024 10/09/2024 IVPB [id number] mEq at 50 mL/hr Ariella Sheehan, (NOW x1, HIGH ALERT R.N. R.N. MEDICATION) potassium 14:42 10/09/2024 Cancelled: Patient Off Unit chloride(K-Philip)20mEq/100m l Farzaneh Delatorre D.O. 16:22 EDT Ariella Santamaria R.N. IVPB [id number] mEq at 50 mL/hr (NOW x1, HIGH [...] Harrington, Na (more content not included)... Normal [facility] ED PHYSICIAN CLINICAL REPORT on 10-09-2024 ED PHYSICIAN CLINICAL REPORT Narrative Physician Clinical Narrative [address] [place] [address] [id number] 10/09/2024 08:13:00 Patient: DALY EVANS Sex: Female : 1985 Age: 39y Disposition: Transfer to [facility] Disposition Decision Time: 12:52 10/09/2024 Measurements [...] subcutaneous syringe: twice a day. (give per CT MAR dose of 0.95ml) escitalopram 20 mg [...] piggyback: 1500 mg twice a day. Allergies: [facility] Medications/Allergy Information Source: patient, shelter record - Jessica Vidales R.N., 10/09/2024 08:28 [...] 450 Fi (more content not included)... Normal [facility] ED SUPER BILLon 10-09-2024 ED SUPER BILL [facility] [address] [place] [address] [id number] 10/09/2024 Patient: DALY EVANS Sex: Female : 1985 Age: 39y Facility Professional Category Item Description Code Code Quantity Fee Total Nurse/E/M EMERGENCY 581968 1 $0.00 $0.00 DEPT VISIT HIGH SEVERITYFUNCJ (77058-65) Nurse/IV/IM/Infusions Drip/IVPB initial 081748 1 $0.00 $0.00 (68689) Nurse/IV/IM/Infusions Drip/IVPB seq 680074 2 $0.00 $0.00 (67755) Nurse/IV/IM/Infusions Hydration 851576 1 $0.00 $0.00 additional hour (28356) Nurse/IV/IM/Infusions IVP additional 356990 2 $0.00 $0.00 push (94517) Nurse/IV/IM/Infusions IVP initial (43981) 139594 1 $0.00 $0.00 Grand $0.00 Total Providers [...] Gastrointestinal hemorrhage, unspecified 2 of 2 Normal [facility] ED VISIT SUMMARYon ED VISIT SUMMARY Visit Overview Visit Overview [address] [address] [id number] 10/09/2024 Patient: DALY EVANS Sex: Female : 1985 Age: 39y 10/09/2024 04:30 PM EDT ED Arrival:08:13 10/09/2024 EDT Status:not Recent Travel:no Language:eng Adv Directive: Isolation Status: Ethnicity:N Fall Risk:risk Infectious Disease Exposure:no Measurements:5'7 / 170.2 Self-Harm Status:risk Sepsis Screen:negative cm 200.0 lb / 90.7 kg Chief Complaint:ACCIDENTAL INGESTION, ([place]), (n/v; dizziness), and (Pt received 115mg of methadone from a nurse at the shelter that was not prescribed to her. ) ALLERGIES [place] [facility] acetaminophen 325 mg chewable tablet: [...] MINOR GI BLEED 4 of 4 Normal [facility] ED VITALS FLOW SHEETon 10-09 ED VITALS FLOW SHEET Vitals Vital Sign Flow Sheet [facility] [address] [place] [address] [id number] 10/09/2024 Patient: DALY EVANS Sex: Female : [...] 10/09/2024 111 96% 4 of 4 Normal [facility] HISTORY PHYSICALon HISTORY PHYSICAL HNO ID: [id number] Author: ROSA MARIA BULLOCK MD Service: General [...] Lovenox, status post colostomy who presented to [facility] ED for accidental overdose. Patient resides in a nursing facility, approximately 1 month ago was taken to [facility] for colostomy after developing bowel obstruction. During [...] suicide (HCC) polysubstance Bipolar depression (HCC) [facility] Camelia Joyman Gestational diabetes mellitus in ([facility]) Impaired fasting blood sugar 06/2015 a1c [...] Patient ta (more content not included)... Normal [facility] MAGNESIUMon 10-09-2024 Magnesium [Mass/Vol] 1.5 mg/dL Low 1.8 - 2.4 [facility] Comment on above: Performed By: #### 2 18051 #### [facility],[address] [place], [place] [phone] OCCULT BLOOD GASTRICon 10-09 OCCULT BLOOD GASTRIC Normal [facility] Comment on above: Result Comment: { OC CULT BLOOD POSITIVE (NEGATIVE ) { SPECIMEN GASTRIC ASPIRATE Performed By: #### 2 58525 #### [facility],[address] [place] [address] 56797 pH (Bld) 4 [pH] Normal [facility] Comment on above: Performed By: #### 2 43659 #### [facility],[address] [place] [address]99 PROTHROMBIN TIME AND INRon 0 10-09-2024 INR Coag (PPP) [Relative time] 1.3 {INR} High 0.8 - 1.2 [facility] [...] MECHANICAL HEART VALVES Performed By: #### 2 47175 #### [facility],[address] [place], [place] [phone] PROTHROMBIN TIME AND INR Normal [facility] Comment on above: Result Comment: PROT HROMBIN TIME AND INR Performed By: #### 2 49923 #### [facility],[address] [place], [place] [phone] PT-COUMADIN 14.2 sec High 9.3 - 14.1 [facility] Comment on above: Performed By: #### 2 17571 #### [facility],[address] [place], [place] [phone] TROPONINon 10-09-2024 HS TROPONIN 6.2 pg/mL Normal 0.0 - 51.4 [facility] Comment on above: Performed By: #### 2 45243 #### [facility],[address] [place], [place] [phone] US KIDNEY/BLADDERon 10-10-19 25 US KIDNEY/BLADDER * * *Final Report* * * DATE OF EXAM: Oct 09 2024 7:04PM [facility] 1055 - US KIDNEY/BLADDER / PROCEDURE [...] the bladder lumen; please correlate with urinalysis. Apartment Assistant Manager: NANCY Transcribe Date/Time: Oct 10 2024 4:59A Dictated by : CHRISTIAN LEE MD This examination was interpreted and the report reviewed and electronically signed by: CHRISTIAN LEE MD on Oct 10 2024 5:02AM EST [id number] Normal [facility] Vancomycin [place] SerPl-mCncon 10-09-2024 Vancomycin random [Mass/Vol] 11.1 ug/mL Normal 10.0-25.0 [facility] Comment on above: Order Comment: Speci men Type: BLOOD SPECIMEN Ordering Facility: [facility] Address: [address] [place] [address] Result Comment: Refe rence ranges and high/low indicator flags are provided as general guidelines only. The treating physician must determine appropriate target levels/dosing based on the specific clinical situation. Performed By: #### 4 091-5 #### [facility] CLIA [id number] [facility] [place] [address] [place] CBC + DIFFon 10-04-2024 Baso # 0.02 x10EE3/UL Normal 0.00 - 0.10 [facility] Comment on above: Performed By: #### 2 74160 #### [address] [address] Basophils/100 WBC (Bld) 0.3 % Normal 0.0 - 2.0 [facility] Comment on above: Performed By: #### 2 27306 #### [facility],[address] [place] [address]2777 CBC + DIFF Normal [facility] Comment on above: Result Comment: CBC- COMPLETE BLOOD COUNT Performed By: #### 2 22218 #### [facility],[address] [place] [address] 94623 EO # 0.16 x10EE3/UL Normal 0.00 - 0.50 [facility] Comment on above: Performed By: #### 2 06699 #### [facility],[address] [place] [address] Eosinophils/100 WBC (Bld) 2.7 % Normal 0.0 - 7.0 [facility] Comment on above: Performed By: #### 2 21262 #### [facility],[address] [place], [place] [phone] Erythrocyte distribution width (RBC) [Ratio] 15.9 % High 12.0 - 15.6 [facility] Comment on above: Performed By: #### 2 15597 #### [facility],[address] [place], [place] [phone] Hematocrit (Bld) [Volume fraction] 29.2 % Low 34.0 - 46.0 [facility] Comment on above: Performed By: #### 2 66216 #### [facility],[address] [place] [address]19 Hemoglobin (Bld) [Mass/Vol] 9.7 g/dL Low 12.0 - 16.0 [facility] Comment on above: Performed By: #### 2 89794 #### [facility],[address] [place] [address] 22836 Lymph # 2.40 x10EE3/UL Normal 0.80 - 2.80 [facility] Comment on above: Performed By: #### 2 81982 #### [facility],[address] [place] [address] 14605 Lymphocytes/100 WBC (Bld) 39.2 % Normal 20.0 - 45.0 [facility] Comment on above: Performed By: #### 2 74113 #### [facility],[address] [place] [address] MANUAL DIFF N/A Normal [facility] Comment on above: Performed By: #### 2 35102 #### [facility],[address] [place] [address] MCH (RBC) [Entitic mass] 26 pg Low 27 - 33 [facility] Comment on above: Performed By: #### 2 98689 #### [facility],[address] [place] [address] MCHC 33 X10 3 Normal 32 - 36 [facility] Comment on above: Performed By: #### 2 57274 #### [facility],[address] [place] [address] MCV (RBC) [Entitic vol] 77 fL Low 80 - 99 [facility] Comment on above: Performed By: #### 2 21747 #### [facility],[address] [place] [address] [place]ett # 0.56 x10EE3/UL Normal 0.20 - 1.00 [facility] Comment on above: Performed By: #### 2 69146 #### [facility],[address] [place] [address] MONOS % 9.2 % Normal 0.0 - 10.0 [facility] Comment on above: Performed By: #### 2 45761 #### [facility],[address] [place] [address] Morphology Stan (Bld) [Interp] N/A Normal [facility] Comment on above: Performed By: #### 2 11736 #### [facility],[address] [place] [address] Neut # 2.99 x10EE3/UL Normal 1.50 - 7.10 [facility] Comment on above: Performed By: #### 2 15909 #### [facility],[address] [place] [address]221 Neutrophils/100 WBC (Bld) 48.7 % Normal 46.0 - 76.0 [facility] Comment on above: Performed By: #### 2 62375 #### [facility],[address] [place], [place] [phone] PLATELET 504 x10EE3/UL High 150 - 450 [facility] Comment on above: Performed By: #### 2 66823 #### [facility],[address] [place] [address] Platelet mean volume (Bld) [Entitic vol] 7.8 fL Normal 6.6 - 10.5 [facility] Comment on above: Result Comment: AUTO MATED DIFFERENTIAL Performed By: #### 2 42027 #### [place] [address] RBC 3.79 x 10EE6/UL Low 4.10 - 5.30 [facility] Comment on above: Performed By: #### 2 84349 #### [facility],[address] [place], [place] [phone] WBC 6.1 x 10EE3/UL Normal 4.5 - 10.8 [facility] Comment on above: Performed By: #### 2 88478 #### [facility],[address] [place] [address] VANCOMYCIN TROUGHon 10-04-19 25 VANCOMYCIN,TROUGH 11.5 ug/mL High 5.0 - 10.0 [facility] Comment on above: Performed By: #### 2 12790 ####[facility],[address] [place], [place] [phone] CBC W Ordered Manual Differe ntial panel (Bld)on 10-02-2024 Basophils (Bld) [#/Vol] 0.04 10*3/uL NINF [facility] Basophils/100 WBC (Bld) 0.5 % [facility] Differential cell count method Nom (Bld) Auto [facility] Eosinophils (Bld) [#/Vol] 0.14 10*3/uL [facility] Eosinophils/100 WBC (Bld) 1.9 % [facility] Erythrocyte distribution width (RBC) [Ratio] 15.7 % High 11.5 - 15.0 % [facility] Hematocrit (Bld) [Volume fraction] 30.2 % Low 36.0 - 46.0 % [facility] Hemoglobin (Bld) [Mass/Vol] 9.2 g/dL Low 11.5 - 15.5 g/dL [facility] Immature granulocytes (Bld) [#/Vol] [facility] Immature granulocytes/100 WBC (Bld) 0.3 % [facility] Interpretation and review of laboratory results Abnormal [facility] Lymphocytes (Bld) [#/Vol] 2.27 10*3/uL [facility] Lymphocytes/100 WBC (Bld) 30.5 % [facility] MCH (RBC) [Entitic mass] 24.2 pg Low 26.0 - 34.0 pg [facility] MCHC (RBC) [Mass/Vol] 30.5 g/dL 30.5 - 36.0 g/dL [facility] MCV (RBC) [Entitic vol] 79.5 fL Low 80.0 - 100.0 fL [facility] Monocytes (Bld) [#/Vol] 0.53 10*3/uL [facility] Monocytes/100 WBC (Bld) 7.1 % [facility] Neutrophils (Bld) [#/Vol] 4.44 10*3/uL [facility] Neutrophils/100 WBC (Bld) 59.7 % [facility] Nucleated RBC (Bld) [#/Vol] [facility] Nucleated RBC/100 WBC (Bld) [Ratio] 0 % /100 WBC [facility] Platelet mean volume (Bld) [Entitic vol] 9 fL 9.0 - 12.7 fL [facility] Platelets (Bld) [#/Vol] 443 10*3/uL High [facility] RBC (Bld) [#/Vol] 3.8 10*6/uL Low 3.90 - 5.2 0 m/uL [facility] WBC (Bld) [#/Vol] 7.44 10*3/uL [facility] This is an appended report. These results have been appended to a previously verified report. [facility] IMMUNOGLOBULINS,IGG,IGA,IGMo n 10-02-2024 IgA [Mass/Vol] 324 mg/dL 70 - 400 mg/dL [facility] IgG [Mass/Vol] 2708 mg/dL High 700 - 1600 mg/dL [facility] IgM [Mass/Vol] 99 mg/dL 40 - 230 mg/dL [facility] Interpretation and review of laboratory results Abnormal [facility] LMW ANTI XA ASSAYOrdered By: Yoseph Urban on 10-02-2024 LMW Heparin Qn (PPP) 0.49 High [facility] Comment on above: Therapeutic Range: 0 .5 to 1.1 IU/mL (Arch Pathology Lab Med 1998: 122:799 to 807). LMW Heparin Qn (PPP)Ordered By: Yoseph Urban on 10-02-2024 Interpretation and review of laboratory results Abnormal [facility] Frozen Plasma Aliquo t [facility] PATHOLOGIST INTERPRETATION C BC/DIFFOrdered By: Jaden Sr on 10-02-2024 Quality Audit Representative review Stan (Unsp spec) [Interp] No review performed. [facility] Pathologist Interpretation, CBCDIF The Pathologist Interpretation on this sample was cancelled because the hematology analyzer did not flag any parameters as requiring manual review. If there is a specific clinical concern for which you would like a pathologist to review the blood smear, please call Lab Client Services within 28 days. Account Credited [facility] CMP with eGFRon 10-01-2024 AGE 39 years Normal [facility] Comment on above: Performed By: #### 2 57460 ####[facility],[address] [place] [address]85[address] Albumin [Mass/Vol] 1.8 g/dL Low 3.4 - 5.0 [facility] Comment on above: Performed By: #### 2 33033 ####[address] [address] Albumin/Globulin [Mass ratio] 0.4 {ratio} Low 0.9 - 1.6 [facility] Comment on above: Performed By: #### 2 82018 ####[facility],[address] [place] [address] ALK PHOS 114 U/L Normal 46 - 116 [facility] Comment on above: Performed By: #### 2 58824 ####[facility],[address] [place], [place] [phone] ALT [Catalytic activity/Vol] 79 U/L High 16 - 63 [facility] Comment on above: Performed By: #### 2 09275 ####[facility],[address] [place] [address] Anion gap [Moles/Vol] 10 mmol/L Normal 10 - 20 [facility] Comment on above: Performed By: #### 2 02383 ####[facility],[address] [place], [place] [phone] AST [Catalytic activity/Vol] 34 U/L Normal 13 - 39 [facility] Comment on above: Performed By: #### 2 53621 ####[facility],[address] [place], [place] [phone] B/C RATIO 21 ratio Normal 0 - 30 [facility] Comment on above: Performed By: #### 2 80889 ####[facility],[address] [place] [address] Bilirubin [Mass/Vol] 0.5 mg/dL Normal 0.2 - 1.0 [facility] Comment on above: Performed By: #### 2 10369 ####[facility],[address] [place], [place] [phone] Calcium [Mass/Vol] 7.8 mg/dL Low 8.5 - 10.1 [facility] Comment on above: Performed By: #### 2 59675 ####[facility],[address] [place], [place] [phone] Chloride [Moles/Vol] 105 mmol/L Normal 98 - 107 [facility] Comment on above: Performed By: #### 2 08937 ####[facility],[address] [place], [place] [phone] CMP with eGFR Normal [facility] Comment on above: Result Comment: COMP REHENSIVE METABOLIC PANEL Performed By: #### 2 08062 ####[facility],[address] [place] [address] CO2 [Moles/Vol] 27.9 mmol/L Normal 21.0 - 32.0 [facility] Comment on above: Performed By: #### 2 80483 ####[facility],[address] [place] [address] Creatinine [Mass/Vol] 0.71 mg/dL Normal 0.55 - 1.02 [facility] Comment on above: Performed By: #### 2 91536 ####[facility],[address] [place] [address] GFR/1.73 sq M.predicted among non-blacks MDRD (S/P/Bld) [Vol rate/Area] mL/min/{1.73_m2} Normal 60 - 999 [facility] Comment on above: Performed By: #### 2 12344 ####[facility],[address] [place] [address] Result Comment: ACCO RDING TO THE NATIONAL KIDNEY DISEASE EDUCATION PROGRAM(NKDE), A NORMAL eGFR IS A VALUE GREATER THAN OR EQUAL TO 60 ML/MIN/1.73 SQ METERS. CHRONIC KIDNEY DISEASE: <60mL/MIN/1.73 SQ METERS KIDNEY FAILURE: <15mL/MIN/1.73 SQ METERS THIS TEST SHOULD ONLY BE USED FOR PATIENTS 18 YEARS OF AGE AND OLDER. Globulin (S) [Mass/Vol] 5.1 g/dL High 1.5 - 3.8 [facility] Comment on above: Performed By: #### 2 56205 ####[facility],[address] [place], [place] [phone] Glucose [Mass/Vol] 170 mg/dL High 74 - 106 [facility] Comment on above: Performed By: #### 2 77900 ####[facility],[address] [place], [place] [phone] Potassium [Moles/Vol] 3.7 mmol/L Normal 3.5 - 5.1 [facility] Comment on above: Performed By: #### 2 11409 ####[facility],[address] [place] [address]58 Protein [Mass/Vol] 6.9 g/dL Normal 6.4 - 8.2 [facility] Comment on above: Performed By: #### 2 63773 ####[facility],[address] [place] [address] Sodium [Moles/Vol] 139 mmol/L Normal 136 - 145 [facility] Comment on above: Performed By: #### 2 48583 ####[facility],[address] [place], [place] [phone] Urea nitrogen [Mass/Vol] 15 mg/dL Normal 7 - 18 [facility] Comment on above: Performed By: #### 2 21837 ####[facility],[address] [place] [address] MAGNESIUMon 10-01-2024 Magnesium [Mass/Vol] 1.8 mg/dL Normal 1.8 - 2.4 [facility] Comment on above: Performed By: #### 2 55909 #### [facility],[address] [place] [address] PHOSPHORUSon 10-01-2024 Phosphate [Mass/Vol] 3.6 mg/dL Normal 2.6 - 4.7 [facility] Comment on above: Performed By: #### 2 80942 ####[facility],[address] [place] [address] VANCOMYCIN TROUGHon 10-02-19 25 VANCOMYCIN,TROUGH 10.8 ug/mL High 5.0 - 10.0 [facility] Comment on above: Performed By: #### 2 93754 ####[facility],[address] [place] [address] VANCOMYCIN TROUGHon 09-29-19 25 VANCOMYCIN,TROUGH 9.6 ug/mL Normal 5.0 - 10.0 [facility] Comment on above: Performed By: #### 2 57821 #### [facility],[address] [place] [address] CBC + DIFFon 09-27-2024 Baso # 0.03 x10EE3/UL Normal 0.00 - 0.10 [facility] Comment on above: Performed By: #### 2 68971 ####[facility],[address] [place], [place] [phone] Basophils/100 WBC (Bld) 0.5 % Normal 0.0 - 2.0 [facility] Comment on above: Performed By: #### 2 38004 ####[facility],[address] [place] [address] CBC + DIFF Normal [facility] Comment on above: Result Comment: CBC- COMPLETE BLOOD COUNT Performed By: #### 2 64161 ####[facility],[address] [place] [address] EO # 0.16 x10EE3/UL Normal 0.00 - 0.50 [facility] Comment on above: Performed By: #### 2 86087 ####[facility],[address] [place], [place] [phone] Eosinophils/100 WBC (Bld) 2.4 % Normal 0.0 - 7.0 [facility] Comment on above: Performed By: #### 2 90958 ####[facility],[address] [place], [place] [phone] Erythrocyte distribution width (RBC) [Ratio] 16.7 % High 12.0 - 15.6 [facility] Comment on above: Performed By: #### 2 18444 ####[facility],[address] [place] [address] Hematocrit (Bld) [Volume fraction] 27.6 % Low 34.0 - 46.0 [facility] Comment on above: Performed By: #### 2 28420 ####[facility],[address] [place] [address] Hemoglobin (Bld) [Mass/Vol] 8.8 g/dL Low 12.0 - 16.0 [facility] Comment on above: Performed By: #### 2 25063 ####[facility],[address] [place] [address] 86254 Lymph # 1.44 x10EE3/UL Normal 0.80 - 2.80 [facility] Comment on above: Performed By: #### 2 84778 ####[facility],[address] [place] [address] 74827 Lymphocytes/100 WBC (Bld) 21.3 % Normal 20.0 - 45.0 [facility] Comment on above: Performed By: #### 2 03091 ####[facility],[address] [place], [place] [phone] MANUAL DIFF N/A Normal [facility] Comment on above: Performed By: #### 2 08287 ####[facility],[address] [place] [address] MCH (RBC) [Entitic mass] 25 pg Low 27 - 33 [facility] Comment on above: Performed By: #### 2 47215 ####[facility],[address] [place] [address] 76325 MCHC 32 X10 3 Normal 32 - 36 [facility] Comment on above: Performed By: #### 2 96959 ####[facility],[address] [place] [address] MCV (RBC) [Entitic vol] 79 fL Low 80 - 99 [facility] Comment on above: Performed By: #### 2 05852 ####[facility],[address] [place] [address] 56961 Pickett # 0.61 x10EE3/UL Normal 0.20 - 1.00 [facility] Comment on above: Performed By: #### 2 84122 ####[facility],[address] [place] [address]884 MONOS % 9.1 % Normal 0.0 - 10.0 [facility] Comment on above: Performed By: #### 2 86527 ####[facility],[address] [place] [address]250 Morphology Stan (Bld) [Interp] N/A Normal [facility] Comment on above: Performed By: #### 2 69766 ####[facility],[address] [place] [address] 89646 Neut # 4.51 x10EE3/UL Normal 1.50 - 7.10 [facility] Comment on above: Performed By: #### 2 02917 ####[facility],[address] [place] [address] 17532 Neutrophils/100 WBC (Bld) 66.8 % Normal 46.0 - 76.0 [facility] Comment on above: Performed By: #### 2 62453 ####[facility],[address] [place] [address] 38392 PLATELET 543 x10EE3/UL High 150 - 450 [facility] Comment on above: Performed By: #### 2 33275 ####[facility],[address] [place] [address] 24918 Platelet mean volume (Bld) [Entitic vol] 7.9 fL Normal 6.6 - 10.5 [facility] Comment on above: Result Comment: AUTO MATED DIFFERENTIAL Performed By: #### 2 74461 ####[facility],[address] [place] [address] 44372 RBC 3.51 x 10EE6/UL Low 4.10 - 5.30 [facility] Comment on above: Performed By: #### 2 59144 ####[facility],[address] [place] [address] 75816 WBC 6.8 x 10EE3/UL Normal 4.5 - 10.8 [facility] Comment on above: Performed By: #### 2 32103 ####[facility],[address] [place] [address] 47095 CMP with eGFRon 09-27-2024 AGE 39 years Normal [facility] Comment on above: Performed By: #### 2 54173 ####[facility],[address] [place] [address] 25139 Albumin [Mass/Vol] 1.8 g/dL Low 3.4 - 5.0 [facility] Comment on above: Performed By: #### 2 70305 ####[facility],[address] [place] [address] 11975 Albumin/Globulin [Mass ratio] 0.3 {ratio} Low 0.9 - 1.6 [facility] Comment on above: Performed By: #### 2 92414 ####[facility],[address] [place] [address] 82661 ALK PHOS 131 U/L High 46 - 116 [facility] Comment on above: Performed By: #### 2 39803 ####[facility],[address] [place] [address] 51355 ALT [Catalytic activity/Vol] 90 U/L High 16 - 63 [facility] Comment on above: Performed By: #### 2 11159 ####[facility],[address] [place] [address] 18674 Anion gap [Moles/Vol] 10 mmol/L Normal 10 - 20 [facility] Comment on above: Performed By: #### 2 62669 ####[facility],[address] [place] [address] 06973 AST [Catalytic activity/Vol] 40 U/L High 13 - 39 [facility] Comment on above: Performed By: #### 2 49288 ####[facility],[address] [place] [address] 94654 B/C RATIO 20 ratio Normal 0 - 30 [facility] Comment on above: Performed By: #### 2 72592 ####[facility],[address] [place] [address] 86770 Bilirubin [Mass/Vol] 0.5 mg/dL Normal 0.2 - 1.0 [facility] Comment on above: Performed By: #### 2 67442 ####[facility],[address] [place] [address] 46717 Calcium [Mass/Vol] 8.1 mg/dL Low 8.5 - 10.1 [facility] Comment on above: Performed By: #### 2 02437 ####[facility],[address] [place] [address] 05119 Chloride [Moles/Vol] 102 mmol/L Normal 98 - 107 [facility] Comment on above: Performed By: #### 2 53628 ####[facility],[address] [place] [address] 88938 CMP with eGFR Normal [facility] Comment on above: Result Comment: COMP REHENSIVE METABOLIC PANEL Performed By: #### 2 56213 ####[facility],[address] [place] [address] 65085 CO2 [Moles/Vol] 26.0 mmol/L Normal 21.0 - 32.0 [facility] Comment on above: Performed By: #### 2 25485 ####[facility],[address] [place] [address] 96913 Creatinine [Mass/Vol] 0.71 mg/dL Normal 0.55 - 1.02 [facility] Comment on above: Performed By: #### 2 12117 ####[facility],[address] [place] [address] 01035 GFR/1.73 sq M.predicted among non-blacks MDRD (S/P/Bld) [Vol rate/Area] mL/min/{1.73_m2} Normal 60 - 999 [facility] Comment on above: Performed By: #### 2 77167 ####[facility],[address] [place] [address] 78339 Result Comment: ACCO RDING TO THE NATIONAL KIDNEY DISEASE EDUCATION PROGRAM(NKDE), A NORMAL eGFR IS A VALUE GREATER THAN OR EQUAL TO 60 ML/MIN/1.73 SQ METERS. CHRONIC KIDNEY DISEASE: <60mL/MIN/1.73 SQ METERS KIDNEY FAILURE: <15mL/MIN/1.73 SQ METERS THIS TEST SHOULD ONLY BE USED FOR PATIENTS 18 YEARS OF AGE AND OLDER. Globulin (S) [Mass/Vol] 5.3 g/dL High 1.5 - 3.8 [facility] Comment on above: Performed By: #### 2 17360 ####[address] [address] Glucose [Mass/Vol] 82 mg/dL Normal 74 - 106 [facility] Comment on above: Performed By: #### 2 36337 ####[address] [address] Potassium [Moles/Vol] 3.6 mmol/L Normal 3.5 - 5.1 [facility] Comment on above: Performed By: #### 2 62965 ####[address] [address] Protein [Mass/Vol] 7.1 g/dL Normal 6.4 - 8.2 [facility] Comment on above: Performed By: #### 2 42548 ####[address] [address] Sodium [Moles/Vol] 134 mmol/L Low 136 - 145 [facility] Comment on above: Performed By: #### 2 77416 ####[address] [address] Urea nitrogen [Mass/Vol] 14 mg/dL Normal 7 - 18 [facility] Comment on above: Performed By: #### 2 20872 ####[address] [address] MAGNESIUMon 09-27-2024 Magnesium [Mass/Vol] 1.9 mg/dL Normal 1.8 - 2.4 [facility] Comment on above: Performed By: #### 2 44960 #### [facility],[address] [place] [address] 47788 BMP with eGFRon 09-25-2024 AGE 39 years Normal [facility] Comment on above: Performed By: #### 2 79022 ####[facility],[address] [place] [address] Anion gap [Moles/Vol] 14 mmol/L Normal 10 - 20 [facility] Comment on above: Performed By: #### 2 01838 ####[facility],[address] [place] [address] 43203 BMP with eGFR Normal [facility] Comment on above: Result Comment: BASI C METABOLIC PANEL Performed By: #### 2 79879 ####[facility],[address] [place], [place] [phone] Calcium [Mass/Vol] 8.5 mg/dL Normal 8.5 - 10.1 [facility] Comment on above: Performed By: #### 2 39256 ####[facility],[address] [place], [place] [phone] Chloride [Moles/Vol] 101 mmol/L Normal 98 - 107 [facility] Comment on above: Performed By: #### 2 43030 ####[facility],[address] [place] [address] 46557 CO2 [Moles/Vol] 23.2 mmol/L Normal 21.0 - 32.0 [facility] Comment on above: Performed By: #### 2 25672 ####[facility],[address] [place] [address] 41782 Creatinine [Mass/Vol] 0.87 mg/dL Normal 0.55 - 1.02 [facility] Comment on above: Performed By: #### 2 17696 ####[place] [address] GFR/1.73 sq M.predicted among non-blacks MDRD (S/P/Bld) [Vol rate/Area] mL/min/{1.73_m2} Normal 60 - 999 [facility] Comment on above: Performed By: #### 2 10552 ####[place] [address] Result Comment: ACCO RDING TO THE NATIONAL KIDNEY DISEASE EDUCATION PROGRAM(NKDE), A NORMAL eGFR IS A VALUE GREATER THAN OR EQUAL TO 60 ML/MIN/1.73 SQ METERS. CHRONIC KIDNEY DISEASE: <60mL/MIN/1.73 SQ METERS KIDNEY FAILURE: <15mL/MIN/1.73 SQ METERS THIS TEST SHOULD ONLY BE USED FOR PATIENTS 18 YEARS OF AGE AND OLDER. Glucose [Mass/Vol] 89 mg/dL Normal 74 - 106 [facility] Comment on above: Performed By: #### 2 62719 ####[place] [phone] Potassium [Moles/Vol] 4.6 mmol/L Normal 3.5 - 5.1 [facility] Comment on above: Performed By: #### 2 12079 ####[place] [phone] Sodium [Moles/Vol] 134 mmol/L Low 136 - 145 [facility] Comment on above: Performed By: #### 2 23693 ####[place] [phone] Urea nitrogen [Mass/Vol] 11 mg/dL Normal 7 - 18 [facility] Comment on above: Performed By: #### 2 61112 ####[address] [address] VANCOMYCIN TROUGHon 09-26-19 25 VANCOMYCIN,TROUGH 4.9 ug/mL Low 5.0 - 10.0 [facility] Comment on above: Performed By: #### 2 40434 #### [place] [address],[place] [address] VANCOMYCIN,TROUGH 5.0 ug/mL Normal 5.0 - 10.0 [facility] Comment on above: Performed By: #### 2 94082 #### [facility],[address] [place] [address] 97740 CBC + DIFFon 09-24-2024 Baso # 0.07 x10EE3/UL Normal 0.00 - 0.10 [facility] Comment on above: Performed By: #### 2 21319 ####[facility],[address] [place] [address] 06593 Basophils/100 WBC (Bld) 0.6 % Normal 0.0 - 2.0 [facility] Comment on above: Performed By: #### 2 19018 ####[facility],[address] [place], [place] [phone] CBC + DIFF Normal [facility] Comment on above: Result Comment: CBC- COMPLETE BLOOD COUNT Performed By: #### 2 82864 ####[facility],[address] [place] [address] 93056 EO # 0.24 x10EE3/UL Normal 0.00 - 0.50 [facility] Comment on above: Performed By: #### 2 74522 ####[facility],[address] [place] [address] 42767 Eosinophils/100 WBC (Bld) 1.9 % Normal 0.0 - 7.0 [facility] Comment on above: Performed By: #### 2 83964 ####[facility],[address] [place] [address] 03013 Erythrocyte distribution width (RBC) [Ratio] 17.1 % High 12.0 - 15.6 [facility] Comment on above: Performed By: #### 2 06333 ####[facility],[address] [place] [address] 40298 Hematocrit (Bld) [Volume fraction] 26.8 % Low 34.0 - 46.0 [facility] Comment on above: Performed By: #### 2 71482 ####[facility],[address] [place] [address] Hemoglobin (Bld) [Mass/Vol] 8.6 g/dL Low 12.0 - 16.0 [facility] Comment on above: Performed By: #### 2 12821 ####[facility],[address] [place] [address] Lymph # 2.14 x10EE3/UL Normal 0.80 - 2.80 [facility] Comment on above: Performed By: #### 2 90013 ####[facility],[address] [place] [address] Lymphocytes/100 WBC (Bld) 17.2 % Low 20.0 - 45.0 [facility] Comment on above: Performed By: #### 2 54013 ####[facility],[address] [place] [address] MANUAL DIFF N/A Normal [facility] Comment on above: Performed By: #### 2 99689 ####[facility],[address] [place] [address] MCH (RBC) [Entitic mass] 25 pg Low 27 - 33 [facility] Comment on above: Performed By: #### 2 50006 ####[facility],[address] [place], [place] [phone] MCHC 32 X10 3 Normal 32 - 36 [facility] Comment on above: Performed By: #### 2 58432 ####[facility],[address] [place], [place] [phone] MCV (RBC) [Entitic vol] 79 fL Low 80 - 99 [facility] Comment on above: Performed By: #### 2 51997 ####[facility],[address] [place] [address] Pickett # 1.36 x10EE3/UL High 0.20 - 1.00 [facility] Comment on above: Performed By: #### 2 68363 ####[facility],[address] [place] [address] 94392 MONOS % 10.9 % High 0.0 - 10.0 [facility] Comment on above: Performed By: #### 2 85633 ####[facility],[address] [place] [address] 17135 Morphology Stan (Bld) [Interp] N/A Normal [facility] Comment on above: Performed By: #### 2 72332 ####[facility],[address] [place] [address] 26341 Neut # 8.65 x10EE3/UL High 1.50 - 7.10 [facility] Comment on above: Performed By: #### 2 90797 ####[facility],[address] [place] [address] 09053 Neutrophils/100 WBC (Bld) 69.4 % Normal 46.0 - 76.0 [facility] Comment on above: Performed By: #### 2 97599 ####[facility],[address] [place] [address] 41527 PLATELET 538 x10EE3/UL High 150 - 450 [facility] Comment on above: Performed By: #### 2 85069 ####[facility],[address] [place] [address] 88669 Platelet mean volume (Bld) [Entitic vol] 8.1 fL Normal 6.6 - 10.5 [facility] Comment on above: Result Comment: AUTO MATED DIFFERENTIAL Performed By: #### 2 43415 ####[facility],[address] [place] [address] 54998 RBC 3.39 x 10EE6/UL Low 4.10 - 5.30 [facility] Comment on above: Performed By: #### 2 95400 ####[facility],[address] [place] [address] 55151 WBC 12.5 x 10EE3/UL High 4.5 - 10.8 [facility] Comment on above: Performed By: #### 2 34845 ####[facility],[address] [place] [address] 62983 CMP with eGFRon 09-24-2024 AGE 39 years Normal [facility] Comment on above: Performed By: #### 2 74065 #### [facility],[address] [place], [place] [phone] Albumin [Mass/Vol] 1.7 g/dL Low 3.4 - 5.0 [facility] Comment on above: Performed By: #### 2 84258 #### [facility],[address] [place], [place] [phone] Albumin/Globulin [Mass ratio] 0.3 {ratio} Low 0.9 - 1.6 [facility] Comment on above: Performed By: #### 2 82341 #### [facility],[address] [place], [place] [phone] ALK PHOS 144 U/L High 46 - 116 [facility] Comment on above: Performed By: #### 2 48156 #### [facility],[address] [place] [address] 30182 ALT [Catalytic activity/Vol] 90 U/L High 16 - 63 [facility] Comment on above: Performed By: #### 2 63462 #### [facility],[address] [place] [address] 99785 Anion gap [Moles/Vol] 13 mmol/L Normal 10 - 20 [facility] Comment on above: Performed By: #### 2 60297 #### [facility],[address] [place] [address] 13654 AST [Catalytic activity/Vol] 40 U/L High 13 - 39 [facility] Comment on above: Performed By: #### 2 02624 #### [facility],[address] [place] [address] 62572 B/C RATIO 22 ratio Normal 0 - 30 [facility] Comment on above: Performed By: #### 2 91955 #### [facility],[address] [place] [address] 42303 Bilirubin [Mass/Vol] 0.5 mg/dL Normal 0.2 - 1.0 [facility] Comment on above: Performed By: #### 2 95629 #### [facility],[address] [place] [address] 75260 Calcium [Mass/Vol] 8.1 mg/dL Low 8.5 - 10.1 [facility] Comment on above: Performed By: #### 2 51440 #### [facility],[address] [place], [place] [phone] Chloride [Moles/Vol] 101 mmol/L Normal 98 - 107 [facility] Comment on above: Performed By: #### 2 31320 #### [facility],[address] [place], [place] [phone] CMP with eGFR Normal [facility] Comment on above: Result Comment: COMP REHENSIVE METABOLIC PANEL Performed By: #### 2 48044 #### [address] [address] CO2 [Moles/Vol] 25.9 mmol/L Normal 21.0 - 32.0 [facility] Comment on above: Performed By: #### 2 40914 #### [facility],[address] [place] [address] 84098 Creatinine [Mass/Vol] 0.76 mg/dL Normal 0.55 - 1.02 [facility] Comment on above: Performed By: #### 2 92052 #### [address] [address] GFR/1.73 sq M.predicted among non-blacks MDRD (S/P/Bld) [Vol rate/Area] mL/min/{1.73_m2} Normal 60 - 999 [facility] Comment on above: Performed By: #### 2 54737 #### [facility],[address] [place], [place] [phone] Result Comment: ACCO RDING TO THE NATIONAL KIDNEY DISEASE EDUCATION PROGRAM(NKDE), A NORMAL eGFR IS A VALUE GREATER THAN OR EQUAL TO 60 ML/MIN/1.73 SQ METERS. CHRONIC KIDNEY DISEASE: <60mL/MIN/1.73 SQ METERS KIDNEY FAILURE: <15mL/MIN/1.73 SQ METERS THIS TEST SHOULD ONLY BE USED FOR PATIENTS 18 YEARS OF AGE AND OLDER. Globulin (S) [Mass/Vol] 5.4 g/dL High 1.5 - 3.8 [facility] Comment on above: Performed By: #### 2 41760 #### [facility],[address] [place] [address] 32100 Glucose [Mass/Vol] 88 mg/dL Normal 74 - 106 [facility] Comment on above: Performed By: #### 2 78612 #### [facility],[address] [place], [place] [phone] Potassium [Moles/Vol] 3.7 mmol/L Normal 3.5 - 5.1 [facility] Comment on above: Performed By: #### 2 77813 #### [facility],[address] [place], [place] [phone] Protein [Mass/Vol] 7.1 g/dL Normal 6.4 - 8.2 [facility] Comment on above: Performed By: #### 2 43416 #### [facility],[address] [place] [address] 33108 Sodium [Moles/Vol] 136 mmol/L Normal 136 - 145 [facility] Comment on above: Performed By: #### 2 38809 #### [facility],[address] [place] [address] 56178 Urea nitrogen [Mass/Vol] 17 mg/dL Normal 7 - 18 [facility] Comment on above: Performed By: #### 2 93445 #### [facility],[address] [place] [address] MAGNESIUMon 09-24-2024 Magnesium [Mass/Vol] 1.9 mg/dL Normal 1.8 - 2.4 [facility] Comment on above: Performed By: #### 2 13839 #### [facility],[address] [place], [place] [phone] BCIDon 09-23-2024 Acinetobacter michael-baumanii complex Not detected Normal Not Detected [facility] Comment on above: Performed By: #### B ANITHA #### [place] [address] Bacteroides fragilis Not detected Normal Not Detected [facility] Comment on above: Performed By: #### B ANITHA #### [place] [address] BCID Comment See Comment Normal [facility] Comment on above: Result Comment: Anti [...] follow. Performed By: #### B ANITHA #### [place] [address] [place] albicans Not detected Normal Not Detected [facility] Comment on above: Performed By: #### B ANITHA #### [place] [address] [place] auris Not detected Normal Not Detected [facility] Comment on above: Performed By: #### B ANITHA #### [place] [address] [place] glabrata Not detected Normal Not Detected [facility] Comment on above: Performed By: #### B ANITHA #### [place] [address] [place] krusei Not detected Normal Not Detected [facility] Comment on above: Performed By: #### B ANITHA #### [place] [address] [place] parapsilosis Not detected Normal Not Detected [facility] Comment on above: Performed By: #### B ANITHA #### [facility] [address] [place] [address] [place] tropicalis Not detected Normal Not Detected [facility] Comment on above: Performed By: #### B ANITHA #### [facility] [address] [place] [address] Cryptococcus neoformans-gattii Not detected Normal Not Detected [facility] Comment on above: Performed By: #### B ANITHA #### [facility] [address] [place] [address] CTX-M (ESBL) Not Applicable Normal Not Detected [facility] Comment on above: Performed By: #### B ANITHA #### [facility] [address] [place] [address] E. Coli Not detected Normal Not Detected [facility] Comment on above: Performed By: #### B ANITHA #### [facility] [address] [place] [address] Enterobacter cloacae Complex Not detected Normal Not Detected [facility] Comment on above: Performed By: #### B ANITHA #### [facility] [address] [place] [address] Enterobacterales Not detected Normal Not Detected [facility] Comment on above: Performed By: #### B ANITHA #### [facility] [address] [place], [place] [id number] Enterococcus faecalis Not detected Normal Not Detected [facility] Comment on above: Performed By: #### B ANITHA #### [facility] [address] [place] [address] Enterococcus faecium Not detected Normal Not Detected [facility] Comment on above: Performed By: #### B ANITHA #### [facility] [address] [place] [address] Haemophilus influenzae Not detected Normal Not Detected [facility] Comment on above: Performed By: #### B ANITHA #### [facility] [address] [place] [address] IMP (Carbapenemase) Not Applicable Normal Not Detected [facility] Comment on above: Performed By: #### B ANITHA #### [facility] [address] [place] [address] Klebsiella aerogenes Not detected Normal Not Detected [facility] Comment on above: Performed By: #### B ANITHA #### [facility] [address] [place] [address] Klebsiella oxytoca Not detected Normal Not Detected [facility] Comment on above: Performed By: #### B ANITHA #### [facility] [address] [place] [address] Klebsiella pneumoniae group Not detected Normal Not Detected [facility] Comment on above: Performed By: #### B ANITHA #### [facility] [address] [place] [address] KPC (Carbapenemase) Not Applicable Normal Not Detected [facility] Comment on above: Performed By: #### B ANITHA #### [place] [address] Listeria monocytogenes Not detected Normal Not Detected [facility] Comment on above: Performed By: #### B ANITHA #### [place] [address] MCR-1 (Colistin Resistance) Not Applicable Normal Not Detected [facility] Comment on above: Performed By: #### B ANITHA #### [place] [address] Mec A/C Detected Abnormal Not Detected [facility] Comment on above: Performed By: #### B ANITHA #### [place] [address] Mec A/C-MREJ (MRSA) Not Applicable Normal Not Detected [facility] Comment on above: Performed By: #### B ANITHA #### [place] [address] NDM (Carbapenemase) Not Applicable Normal Not Detected [facility] Comment on above: Performed By: #### B ANITHA #### [place] [id number] Neisseria meningitidis (Encapsalated) Not detected Normal Not Detected [facility] Comment on above: Performed By: #### B ANITHA #### [place] [address] OXA-48 like (Carbapenemase) Not Applicable Normal Not Detected [facility] Comment on above: Performed By: #### B ANITHA #### [place] [address] [place], [place] [id number] Proteus Not detected Normal Not Detected [facility] Comment on above: Performed By: #### B ANITHA #### [facility] [address] [place], [place] [id number] Pseudomonas aeruginosa Not detected Normal Not Detected [facility] Comment on above: Performed By: #### B ANITHA #### [place] [phone] S. agalactiae Org specific cx Ql (Vag fld) Not detected Normal Not Detected [facility] Comment on above: Performed By: #### B ANITHA #### [place] [address] Salmonella species Not detected Normal Not Detected [facility] Comment on above: Performed By: #### B ANITHA #### [place] [address] Serratia marcescens Not detected Normal Not Detected [facility] Comment on above: Performed By: #### B ANITHA #### [place] [address] Staphylococcus Detected Abnormal Not Detected [facility] Comment on above: Performed By: #### B ANITHA #### [place] [address] Staphylococcus aureus Not detected Normal Not Detected [facility] Comment on above: Result Comment: If S taphylococcus aureus is Detected, an Infectious Disease physician consult is required on identification. Performed By: #### B ANITHA #### [place] [address] Staphylococcus epidermidis Detected Abnormal Not Detected [facility] Comment on above: Performed By: #### B ANITHA #### [place] [phone] Staphylococcus lugdunensis Not detected Normal Not Detected [facility] Comment on above: Performed By: #### B ANITHA #### [place] [phone] Stenotrophomonas maltophilia Not detected Normal Not Detected [facility] Comment on above: Performed By: #### B ANITHA #### [place] [address] Streptococcus Not detected Normal Not Detected [facility] Comment on above: Performed By: #### B ANITHA #### [place] [address] Streptococcus pneumoniae Not detected Normal Not Detected [facility] Comment on above: Performed By: #### B ANITHA #### [facility] [address] [place] [address] Streptococcus pyogenes Not detected Normal Not Detected [facility] Comment on above: Performed By: #### B ANITHA #### [place] [address] Van A/B Not Applicable Normal Not Detected [facility] Comment on above: Performed By: #### B ANITHA #### [place] [address] VIM (Carbapenemase) Not Applicable Normal Not Detected [facility] Comment on above: Performed By: #### B ANITHA #### [place] [address] CULTURE CATHETER TIP [AULTMA N]on 09-23-2024 CULTURE CATHETER TIP [IRASEMA] CULTURE CATHETER TIP [IRASEMA] _CATHETER TIP CULTURE_ GO TO [employer]PSI REPORTS AND ATTACHMENTS FOR SCANNED REPORT 09/28/24.DNP.COMPLETE Normal [facility] Comment on above: Performed By: #### 2 64526 #### [facility],[address] [place], [place] [id number] CULTURE BLOOD [IRASEMA]on Microscopic examination of blood, culture CULTURE BLOOD [IRASEMA] _BLOOD CULTURE_ GO TO CPSI REPORTS AND ATTACHMENTS FOR SCANNED REPORT 09/28/24.DNP.COMPLETE Normal [facility] Comment on above: Performed By: #### 2 56387 #### [facility],[address] [place], [place] [phone] Microscopic examination of blood, culture CULTURE BLOOD [IRASEMA] _BLOOD CULTURE_ GO TO CPSI REPORTS AND ATTACHMENTS FOR SCANNED REPORT 09/28/24.DNP.COMPLETE Normal [facility] Comment on above: Performed By: #### 2 63260 #### [facility],[address] [place] [address]57 URINALYSISon 09-21-2024 Bilirubin Ql (U) Negative Normal NORMAL: NEGATIVE [facility] Comment on above: Performed By: #### 2 50925 #### [facility],[address] [place] [address]49 Clarity (U) clear Normal NORMAL: CLEAR [facility] Comment on above: Performed By: #### 2 80151 #### [facility],[address] [place] [address]0586 Color (U) yellow Normal NORMAL: YELLOW [facility] Comment on above: Performed By: #### 2 71232 #### [facility],[address] [place] [address] 65615 Glucose Ql (U) NORM Normal NORMAL: NORMAL [facility] Comment on above: Performed By: #### 2 35528 #### [facility],[address] [place] [address]053 Hemoglobin Ql (U) Negative Normal NORMAL: NEGATIVE [facility] Comment on above: Performed By: #### 2 15110 #### [facility],[address] [place] [address] 21733 Ketone Negative Normal NORMAL: NEGATIVE [facility] Comment on above: Performed By: #### 2 16560 #### [facility],[address] [place] [address]8430 Leukocytes Negative Normal NORMAL: NEGATIVE [facility] Comment on above: Performed By: #### 2 07219 #### [facility],[address] [place] [address] 82165 Nitrite Ql (U) Negative Normal NORMAL: NEGATIVE [facility] Comment on above: Performed By: #### 2 98645 #### [facility],[address] [place] [address] 42104 pH (U) 6.5 [pH] Normal NORMAL: 5.0-8.0 [facility] Comment on above: Performed By: #### 2 39224 #### [facility],[address] [place] [address] Protein Ql (U) 15 Abnormal NORMAL: NEGATIVE [facility] Comment on above: Performed By: #### 2 87065 #### [facility],[address] [place] [address] Sp [place] 1.020 Normal NORMAL: 1.010-1.030 [facility] Comment on above: Performed By: #### 2 07482 #### [facility],[address] [place] [address] Specimen Type Clean catch Normal [facility] Comment on above: Performed By: #### 2 78772 #### [place] [address] Urinalysis dipstick W Reflex Microscopic panel (U) NOT INDICATED Normal [facility] Comment on above: Performed By: #### 2 67894 #### [place] [address] Urobilinog NORM Normal NORMAL: NORMAL [facility] Comment on above: Performed By: #### 2 71318 #### [place] [address] URINE CULTURE [CCL]on 2024 Bacteria identified Cx Nom (U) URCUL See Results Below See Below CULTURE, URINE MIXED MICROBIOTA 10,000 -<50,000 CFU/ml Mixed microbiota No further workup. Mixed microbiota can be due to???urine???contamination with s SOURCE: Urine (Nonspecific) [facility] [address] [place] [address] Jaison Lema III, M.D. [id number] Normal [facility] Comment on above: Performed By: #### 2 75123 #### [facility],[address] [place] [address] 21466 CBC + DIFFon 09-20-2024 Baso # 0.06 x10EE3/UL Normal 0.00 - 0.10 [facility] Comment on above: Performed By: #### 2 96152 ####[facility],[address] [place] [address] 79449 Basophils/100 WBC (Bld) 0.4 % Normal 0.0 - 2.0 [facility] Comment on above: Performed By: #### 2 65180 ####[facility],[address] [place] [address]193 Basophils/100 WBC (Bld) 1.0 % Normal 0.0 - 2.0 [facility] Comment on above: Performed By: #### 2 67967 ####[facility],[address] [place] [address] 47184 CBC + DIFF Normal [facility] Comment on above: Result Comment: CBC- COMPLETE BLOOD COUNT Performed By: #### 2 07322 ####[facility],[address] [place] [address] 02258 CELL COUNT 100 Normal [facility] Comment on above: Performed By: #### 2 92172 ####[facility],[address] [place] [address] 35288 EO 1.0 % Normal 0.0 - 7.0 [facility] Comment on above: Performed By: #### 2 83780 ####[facility],[address] [place] [address] 31069 EO # 0.22 x10EE3/UL Normal 0.00 - 0.50 [facility] Comment on above: Performed By: #### 2 28521 ####[facility],[address] [place] [address] 16770 Eosinophils/100 WBC (Bld) 1.4 % Normal 0.0 - 7.0 [facility] Comment on above: Performed By: #### 2 00233 ####[facility],[address] [place] [address] 31866 Erythrocyte distribution width (RBC) [Ratio] 18.0 % High 12.0 - 15.6 [facility] Comment on above: Performed By: #### 2 62029 ####[facility],[address] [place], [place] [phone] Hematocrit (Bld) [Volume fraction] 28.2 % Low 34.0 - 46.0 [facility] Comment on above: Performed By: #### 2 12837 ####[facility],[address] [place] [address] Hemoglobin (Bld) [Mass/Vol] 9.1 g/dL Low 12.0 - 16.0 [facility] Comment on above: Performed By: #### 2 14256 ####[facility],[address] [place] [address] Lymph # 2.04 x10EE3/UL Normal 0.80 - 2.80 [facility] Comment on above: Performed By: #### 2 22506 ####[facility],[address] [place] [address] 24233 Lymphocytes/100 WBC (Bld) 12.6 % Low 20.0 - 45.0 [facility] Comment on above: Performed By: #### 2 67166 ####[facility],[address] [place] [address] 91370 Lymphocytes/100 WBC (Bld) 13 % Low 20 - 45 [facility] Comment on above: Performed By: #### 2 61834 ####[facility],[address] [place] [address] 63399 MANUAL DIFF SEE BELOW Normal [facility] Comment on above: Performed By: #### 2 79206 ####[facility],[address] [place] [address] 17698 MCH (RBC) [Entitic mass] 26 pg Low 27 - 33 [facility] Comment on above: Performed By: #### 2 19304 ####[facility],[address] [place] [address] MCHC 32 X10 3 Normal 32 - 36 [facility] Comment on above: Performed By: #### 2 72368 ####[facility],[address] [place] [address] MCV (RBC) [Entitic vol] 80 fL Normal 80 - 99 [facility] Comment on above: Performed By: #### 2 35694 ####[facility],[address] [place] [address] [place] # 1.34 x10EE3/UL High 0.20 - 1.00 [facility] Comment on above: Performed By: #### 2 48030 ####[facility],[address] [place] [address] MONOS 4 % Normal 0 - 10 [facility] Comment on above: Performed By: #### 2 20889 ####[facility],[address] [place] [address] MONOS % 8.3 % Normal 0.0 - 10.0 [facility] Comment on above: Performed By: #### 2 51900 ####[facility],[address] [place] [address] Morphology Stan (Bld) [Interp] REVIEWED Normal [facility] Comment on above: Performed By: #### 2 47771 ####[facility],[address] [place] [address] Neut # 12.46 x10EE3/UL High 1.50 - 7.10 [facility] Comment on above: Performed By: #### 2 81250 ####[facility],[address] [place] [address] Neutrophils/100 WBC (Bld) 77.3 % High 46.0 - 76.0 [facility] Comment on above: Performed By: #### 2 30151 ####[facility],[address] [place], [place] [address] NRBC 1 /100 Normal [facility] Comment on above: Performed By: #### 2 03815 ####[facility],[address] [place] [address] 37588 PLATELET 422 x10EE3/UL Normal 150 - 450 [facility] Comment on above: Performed By: #### 2 51014 ####[facility],[address] [place] [address] Platelet mean volume (Bld) [Entitic vol] 8.8 fL Normal 6.6 - 10.5 [facility] Comment on above: Result Comment: AUTO MATED DIFFERENTIAL Performed By: #### 2 08889 ####[facility],[address] [place] [address] RBC 3.52 x 10EE6/UL Low 4.10 - 5.30 [facility] Comment on above: Performed By: #### 2 61117 ####[facility],[address] [place] [address] SEGS 81 % High 46 - 76 [facility] Comment on above: Performed By: #### 2 38837 ####[facility],[address] [place], [place] [phone] WBC 16.1 x 10EE3/UL High 4.5 - 10.8 [facility] Comment on above: Performed By: #### 2 81553 ####[facility],[address] [place] [address] 59814 CMP with eGFRon 09-20-2024 AGE 39 years Normal [facility] Comment on above: Performed By: #### 2 32053 #### [facility],[address] [place] [address] 80725 Albumin [Mass/Vol] 1.6 g/dL Low 3.4 - 5.0 [facility] Comment on above: Performed By: #### 2 54819 #### [facility],[address] [place], [place] [address] Albumin/Globulin [Mass ratio] 0.3 {ratio} Low 0.9 - 1.6 [facility] Comment on above: Performed By: #### 2 53059 #### [facility],[address] [place], [place] [phone] ALK PHOS 136 U/L High 46 - 116 [facility] Comment on above: Performed By: #### 2 31884 #### [facility],[address] [place] [address] ALT [Catalytic activity/Vol] 80 U/L High 16 - 63 [facility] Comment on above: Performed By: #### 2 44832 #### [facility],[address] [place] [address] Anion gap [Moles/Vol] 10 mmol/L Normal 10 - 20 [facility] Comment on above: Performed By: #### 2 83555 #### [facility],[address] [place] [address] AST [Catalytic activity/Vol] 34 U/L Normal 13 - 39 [facility] Comment on above: Performed By: #### 2 31944 #### [facility],[address] [place] [address] B/C RATIO 15 ratio Normal 0 - 30 [facility] Comment on above: Performed By: #### 2 42934 #### [facility],[address] [place] [address] Bilirubin [Mass/Vol] 0.6 mg/dL Normal 0.2 - 1.0 [facility] Comment on above: Performed By: #### 2 10513 #### [facility],[address] [place], [place] [phone] Calcium [Mass/Vol] 8.1 mg/dL Low 8.5 - 10.1 [facility] Comment on above: Performed By: #### 2 25839 #### [facility],[address] [place], [place] [phone] Chloride [Moles/Vol] 101 mmol/L Normal 98 - 107 [facility] Comment on above: Performed By: #### 2 11298 #### [facility],[address] [place] [address] CMP with eGFR Normal [facility] Comment on above: Result Comment: COMP REHENSIVE METABOLIC PANEL Performed By: #### 2 53593 #### [facility],[address] [place] [address] CO2 [Moles/Vol] 29.0 mmol/L Normal 21.0 - 32.0 [facility] Comment on above: Performed By: #### 2 07297 #### [facility],[address] [place] [address] Creatinine [Mass/Vol] 0.80 mg/dL Normal 0.55 - 1.02 [facility] Comment on above: Performed By: #### 2 94349 #### [facility],[address] [place] [address] GFR/1.73 sq M.predicted among non-blacks MDRD (S/P/Bld) [Vol rate/Area] mL/min/{1.73_m2} Normal 60 - 999 [facility] Comment on above: Performed By: #### 2 07478 #### [facility],[address] [place] [address] Result Comment: ACCO RDING TO THE NATIONAL KIDNEY DISEASE EDUCATION PROGRAM(NKDE), A NORMAL eGFR IS A VALUE GREATER THAN OR EQUAL TO 60 ML/MIN/1.73 SQ METERS. CHRONIC KIDNEY DISEASE: <60mL/MIN/1.73 SQ METERS KIDNEY FAILURE: <15mL/MIN/1.73 SQ METERS THIS TEST SHOULD ONLY BE USED FOR PATIENTS 18 YEARS OF AGE AND OLDER. Globulin (S) [Mass/Vol] 5.3 g/dL High 1.5 - 3.8 [facility] Comment on above: Performed By: #### 2 57820 #### [facility],[address] [place] [address] 87122 Glucose [Mass/Vol] 98 mg/dL Normal 74 - 106 [facility] Comment on above: Performed By: #### 2 96619 #### [facility],[address] [place] [address] 79886 Potassium [Moles/Vol] 4.2 mmol/L Normal 3.5 - 5.1 [facility] Comment on above: Performed By: #### 2 02704 #### [facility],[address] [place] [address] 76242 Protein [Mass/Vol] 6.9 g/dL Normal 6.4 - 8.2 [facility] Comment on above: Performed By: #### 2 94752 #### [facility],[address] [place] [address] 38772 Sodium [Moles/Vol] 136 mmol/L Normal 136 - 145 [facility] Comment on above: Performed By: #### 2 08169 #### [facility],[address] [place] [address] 77901 Urea nitrogen [Mass/Vol] 12 mg/dL Normal 7 - 18 [facility] Comment on above: Performed By: #### 2 86357 #### [facility],[address] [place] [address] 57642 MAGNESIUMon 09-20-2024 Magnesium [Mass/Vol] 1.7 mg/dL Low 1.8 - 2.4 [facility] Comment on above: Performed By: #### 2 81836 ####[facility],[address] [place] [address] 83680 BCIDon 09-18-2024 Acinetobacter michael-baumanii complex Not detected Normal Not Detected [facility] Comment on above: Order Comment: aer Performed By: #### B ANITHA #### [place] [address] Bacteroides fragilis Not detected Normal Not Detected [facility] Comment on above: Order Comment: aer Performed By: #### B ANITHA #### [place] [address] BCID Comment See Comment Normal [facility] Comment on above: Order Comment: aer [...] follow. Performed By: #### B ANITHA #### [place] [address] Mary Ann albicans Not detected Normal Not Detected [facility] Comment on above: Order Comment: aer Performed By: #### B ANITHA #### [place] [address] [place] auris Not detected Normal Not Detected [facility] Comment on above: Order Comment: aer Performed By: #### B ANITHA #### [place] [address] [place] glabrata Not detected Normal Not Detected [facility] Comment on above: Order Comment: aer Performed By: #### B ANITHA #### [place] [address] [place] krusei Not detected Normal Not Detected [facility] Comment on above: Order Comment: aer Performed By: #### B ANITHA #### [place] [address] [place] parapsilosis Not detected Normal Not Detected [facility] Comment on above: Order Comment: aer Performed By: #### B ANITHA #### [place] [address] Mary Ann tropicalis Not detected Normal Not Detected [facility] Comment on above: Order Comment: aer Performed By: #### B ANITHA #### [place] [address] Cryptococcus neoformans-gattii Not detected Normal Not Detected [facility] Comment on above: Order Comment: aer Performed By: #### B ANITHA #### [place] [address] CTX-M (ESBL) Not Applicable Normal Not Detected [facility] Comment on above: Order Comment: aer Performed By: #### B ANITHA #### [place] [address] E. Coli Not detected Normal Not Detected [facility] Comment on above: Order Comment: aer Performed By: #### B ANITHA #### [place] [address] Enterobacter cloacae Complex Not detected Normal Not Detected [facility] Comment on above: Order Comment: aer Performed By: #### B ANITHA #### [place] [address] Enterobacterales Not detected Normal Not Detected [facility] Comment on above: Order Comment: aer Performed By: #### B ANITHA #### [place] [address] Enterococcus faecalis Not detected Normal Not Detected [facility] Comment on above: Order Comment: aer Performed By: #### B ANITHA #### [place] [address] Enterococcus faecium Not detected Normal Not Detected [facility] Comment on above: Order Comment: aer Performed By: #### B ANITHA #### [place] [address] Haemophilus influenzae Not detected Normal Not Detected [facility] Comment on above: Order Comment: aer Performed By: #### B ANITHA #### [place] [address] IMP (Carbapenemase) Not Applicable Normal Not Detected [facility] Comment on above: Order Comment: aer Performed By: #### B ANITHA #### [address] [address] Klebsiella aerogenes Not detected Normal Not Detected [facility] Comment on above: Order Comment: aer Performed By: #### B ANITHA #### [facility] [address] [place] [address] Klebsiella oxytoca Not detected Normal Not Detected [facility] Comment on above: Order Comment: aer Performed By: #### B ANITHA #### [place] [address] Klebsiella pneumoniae group Not detected Normal Not Detected [facility] Comment on above: Order Comment: aer Performed By: #### B ANITHA #### [place] [address] KPC (Carbapenemase) Not Applicable Normal Not Detected [facility] Comment on above: Order Comment: aer Performed By: #### B ANITHA #### [place] [address] Listeria monocytogenes Not detected Normal Not Detected [facility] Comment on above: Order Comment: aer Performed By: #### B ANITHA #### [place] [address] MCR-1 (Colistin Resistance) Not Applicable Normal Not Detected [facility] Comment on above: Order Comment: aer Performed By: #### B ANITHA #### [place] [id number] Mec A/C Detected Abnormal Not Detected [facility] Comment on above: Order Comment: aer Performed By: #### B ANITHA #### [place] [id number] Mec A/C-MREJ (MRSA) Not Applicable Normal Not Detected [facility] Comment on above: Order Comment: aer Performed By: #### B ANITHA #### [place] [address] NDM (Carbapenemase) Not Applicable Normal Not Detected [facility] Comment on above: Order Comment: aer Performed By: #### B ANITHA #### [place] [address] Neisseria meningitidis (Encapsalated) Not detected Normal Not Detected [facility] Comment on above: Order Comment: aer Performed By: #### B ANITHA #### [place] [address] OXA-48 like (Carbapenemase) Not Applicable Normal Not Detected [facility] Comment on above: Order Comment: aer Performed By: #### B ANITHA #### [place] [address] Proteus Not detected Normal Not Detected [facility] Comment on above: Order Comment: aer Performed By: #### B ANITHA #### [place] [address] Pseudomonas aeruginosa Not detected Normal Not Detected [facility] Comment on above: Order Comment: aer Performed By: #### B ANITHA #### [place] [address] S. agalactiae Org specific cx Ql (Vag fld) Not detected Normal Not Detected [facility] Comment on above: Order Comment: aer Performed By: #### B ANITHA #### [place] [address] Salmonella species Not detected Normal Not Detected [facility] Comment on above: Order Comment: aer Performed By: #### B ANITHA #### [place] [address] Serratia marcescens Not detected Normal Not Detected [facility] Comment on above: Order Comment: aer Performed By: #### B ANITHA #### [place] [address] Staphylococcus Detected Abnormal Not Detected [facility] Comment on above: Order Comment: aer Performed By: #### B ANITHA #### [place] [address] Staphylococcus aureus Not detected Normal Not Detected [facility] Comment on above: Order Comment: aer Result Comment: If S taphylococcus aureus is Detected, an Infectious Disease physician consult is required on identification. Performed By: #### B ANITHA #### [place] [address] Staphylococcus epidermidis Detected Abnormal Not Detected [facility] Comment on above: Order Comment: aer Performed By: #### B ANITHA #### [place] [address] Staphylococcus lugdunensis Not detected Normal Not Detected [facility] Comment on above: Order Comment: aer Performed By: #### B ANITHA #### [place] [address] Stenotrophomonas maltophilia Not detected Normal Not Detected [facility] Comment on above: Order Comment: aer Performed By: #### B ANITHA #### [place] [address] Streptococcus Not detected Normal Not Detected [facility] Comment on above: Order Comment: aer Performed By: #### B ANITHA #### [place] [id number] Streptococcus pneumoniae Not detected Normal Not Detected [facility] Comment on above: Order Comment: aer Performed By: #### B ANITHA #### [place] [id number] Streptococcus pyogenes Not detected Normal Not Detected [facility] Comment on above: Order Comment: aer Performed By: #### B ANITHA #### [place] [id number] Van A/B Not Applicable Normal Not Detected [facility] Comment on above: Order Comment: aer Performed By: #### B ANITHA #### [place] [address] VIM (Carbapenemase) Not Applicable Normal Not Detected [facility] Comment on above: Order Comment: [id number] aer Performed By: #### B ANITHA #### [place] [id number] C-REACTIVE PROTEINon 025 CRP 6.50 mg/dl High 0.00 - 0.90 [facility] Comment on above: Performed By: #### 2 71794 #### [facility],[address] [place] [address]148 CBC + DIFFon 09-17-2024 Baso # 0.02 x10EE3/UL Normal 0.00 - 0.10 [facility] Comment on above: Performed By: #### 2 64432 ####[facility],[address] [place] [address] 16155 Basophils/100 WBC (Bld) 0.2 % Normal 0.0 - 2.0 [facility] Comment on above: Performed By: #### 2 90825 ####[facility],[address] [place] [address]1200 CBC + DIFF Normal [facility] Comment on above: Result Comment: CBC- COMPLETE BLOOD COUNT Performed By: #### 2 28371 ####[facility],[address] [place] [address] 88727 EO # 0.05 x10EE3/UL Normal 0.00 - 0.50 [facility] Comment on above: Performed By: #### 2 11481 ####[facility],[address] [place] [address] 01414 Eosinophils/100 WBC (Bld) 0.5 % Normal 0.0 - 7.0 [facility] Comment on above: Performed By: #### 2 29366 ####[facility],[address] [place] [address]375 Erythrocyte distribution width (RBC) [Ratio] 17.2 % High 12.0 - 15.6 [facility] Comment on above: Performed By: #### 2 71604 ####[facility],[address] [place] [address] Hematocrit (Bld) [Volume fraction] 27.0 % Low 34.0 - 46.0 [facility] Comment on above: Performed By: #### 2 65272 ####[facility],[address] [place] [address] Hemoglobin (Bld) [Mass/Vol] 9.1 g/dL Low 12.0 - 16.0 [facility] Comment on above: Performed By: #### 2 84334 ####[facility],[address] [place] [address] Lymph # 1.13 x10EE3/UL Normal 0.80 - 2.80 [facility] Comment on above: Performed By: #### 2 62727 ####[facility],[address] [place] [address] Lymphocytes/100 WBC (Bld) 10.8 % Low 20.0 - 45.0 [facility] Comment on above: Performed By: #### 2 99678 ####[facility],[address] [place] [address] MANUAL DIFF N/A Normal [facility] Comment on above: Performed By: #### 2 77032 ####[facility],[address] [place], [place] [phone] MCH (RBC) [Entitic mass] 27 pg Normal 27 - 33 [facility] Comment on above: Performed By: #### 2 50834 ####[facility],[address] [place] [address] MCHC 34 X10 3 Normal 32 - 36 [facility] Comment on above: Performed By: #### 2 28978 ####[facility],[address] [place], [place] [phone] MCV (RBC) [Entitic vol] 80 fL Normal 80 - 99 [facility] Comment on above: Performed By: #### 2 06786 ####[facility],[address] [place] [address] 11908 Pickett # 0.95 x10EE3/UL Normal 0.20 - 1.00 [facility] Comment on above: Performed By: #### 2 41374 ####[facility],[address] [place] [address] 45623 MONOS % 9.1 % Normal 0.0 - 10.0 [facility] Comment on above: Performed By: #### 2 94030 ####[facility],[address] [place] [address] 24248 Morphology Stan (Bld) [Interp] N/A Normal [facility] Comment on above: Performed By: #### 2 65772 ####[facility],[address] [place] [address] 69333 Neut # 8.26 x10EE3/UL High 1.50 - 7.10 [facility] Comment on above: Performed By: #### 2 42639 ####[facility],[address] [place] [address] 83170 Neutrophils/100 WBC (Bld) 79.4 % High 46.0 - 76.0 [facility] Comment on above: Performed By: #### 2 82336 ####[facility],[address] [place] [address] PLATELET 225 x10EE3/UL Normal 150 - 450 [facility] Comment on above: Performed By: #### 2 71742 ####[facility],[address] [place] [address] Platelet mean volume (Bld) [Entitic vol] 9.1 fL Normal 6.6 - 10.5 [facility] Comment on above: Result Comment: AUTO MATED DIFFERENTIAL Performed By: #### 2 00772 ####[facility],[address] [place] [address] 47959 RBC 3.39 x 10EE6/UL Low 4.10 - 5.30 [facility] Comment on above: Performed By: #### 2 51545 ####[facility],[address] [place] [address] 22341 WBC 10.4 x 10EE3/UL Normal 4.5 - 10.8 [facility] Comment on above: Performed By: #### 2 88952 ####[facility],[address] [place] [address]406 CHEST 1 VIEWon 09-17-2024 CHEST 1 VIEW [place] [address] Patient: DALY EVANS Phone#: : 1985 Age: 39 Gender: F Pt. Type: ER Account: [id number] Location: [facility] Ordering: DONTE MEZA Exam Date: 09/17/2024/6:23 Family Phys: MAGGIE INDY Charge Code: [id number] Physician: Meade Order #: [id number] Dose#: PROCEDURE: X-RAY CHEST 1 VIEW COMPARISON: [...] Berry MD on 09/17/2024 at 10:53 Normal [facility] CMP with eGFRon 09-17-2024 AGE 39 years Normal [facility] Comment on above: Performed By: #### 2 69067 #### [facility],[address] [place] [address]3813 Albumin [Mass/Vol] 1.9 g/dL Low 3.4 - 5.0 [facility] Comment on above: Performed By: #### 2 96096 #### [facility],[address] [place] [address] 11493 Albumin/Globulin [Mass ratio] 0.4 {ratio} Low 0.9 - 1.6 [facility] Comment on above: Performed By: #### 2 43663 #### [facility],[address] [place] [address] 99995 ALK PHOS 82 U/L Normal 46 - 116 [facility] Comment on above: Performed By: #### 2 26793 #### [facility],[address] [place] [address] 13349 ALT [Catalytic activity/Vol] 68 U/L High 16 - 63 [facility] Comment on above: Performed By: #### 2 30610 #### [facility],[address] [place] [address] 70231 Anion gap [Moles/Vol] 11 mmol/L Normal 10 - 20 [facility] Comment on above: Performed By: #### 2 41360 #### [facility],[address] [place] [address] 30540 AST [Catalytic activity/Vol] 48 U/L High 13 - 39 [facility] Comment on above: Performed By: #### 2 91739 #### [facility],[address] [place] [address] 25583 B/C RATIO 22 ratio Normal 0 - 30 [facility] Comment on above: Performed By: #### 2 93821 #### [facility],[address] [place] [address] 23312 Bilirubin [Mass/Vol] 0.4 mg/dL Normal 0.2 - 1.0 [facility] Comment on above: Performed By: #### 2 95862 #### [facility],[address] [place] [address] 03041 Calcium [Mass/Vol] 8.1 mg/dL Low 8.5 - 10.1 [facility] Comment on above: Performed By: #### 2 06759 #### [place] [phone] Chloride [Moles/Vol] 101 mmol/L Normal 98 - 107 [facility] Comment on above: Performed By: #### 2 57781 #### [facility],[address] [place] [address] CMP with eGFR Normal [facility] Comment on above: Result Comment: COMP REHENSIVE METABOLIC PANEL Performed By: #### 2 77688 #### [place] [address] CO2 [Moles/Vol] 27.6 mmol/L Normal 21.0 - 32.0 [facility] Comment on above: Performed By: #### 2 77255 #### [place] [address] Creatinine [Mass/Vol] 0.90 mg/dL Normal 0.55 - 1.02 [facility] Comment on above: Performed By: #### 2 60968 #### [place] [address] GFR/1.73 sq M.predicted among non-blacks MDRD (S/P/Bld) [Vol rate/Area] mL/min/{1.73_m2} Normal 60 - 999 [facility] Comment on above: Performed By: #### 2 39939 #### [place] [address] Result Comment: ACCO RDING TO THE NATIONAL KIDNEY DISEASE EDUCATION PROGRAM(NKDE), A NORMAL eGFR IS A VALUE GREATER THAN OR EQUAL TO 60 ML/MIN/1.73 SQ METERS. CHRONIC KIDNEY DISEASE: <60mL/MIN/1.73 SQ METERS KIDNEY FAILURE: <15mL/MIN/1.73 SQ METERS THIS TEST SHOULD ONLY BE USED FOR PATIENTS 18 YEARS OF AGE AND OLDER. Globulin (S) [Mass/Vol] 5.2 g/dL High 1.5 - 3.8 [facility] Comment on above: Performed By: #### 2 97398 #### [facility],[address] [place] [address] 53853 Glucose [Mass/Vol] 139 mg/dL High 74 - 106 [facility] Comment on above: Performed By: #### 2 30717 #### [facility],[address] [place] [address] 41274 Potassium [Moles/Vol] 3.2 mmol/L Low 3.5 - 5.1 [facility] Comment on above: Performed By: #### 2 25632 #### [facility],[address] [place] [address] 36230 Protein [Mass/Vol] 7.1 g/dL Normal 6.4 - 8.2 [facility] Comment on above: Performed By: #### 2 92096 #### [facility],[address] [place], [place] [phone] Sodium [Moles/Vol] 136 mmol/L Normal 136 - 145 [facility] Comment on above: Performed By: #### 2 62237 #### [facility],[address] [place], [place] [address] Urea nitrogen [Mass/Vol] 20 mg/dL High 7 - 18 [facility] Comment on above: Performed By: #### 2 47497 #### [facility],[address] [place], [place] [phone] CORONAVIRUS (SARS) ANTIGEN T ESTon 09-17-2024 EXTERNAL QC DONE? YES Normal [facility] Comment on above: Performed By: #### 2 59262 #### [place] [phone] INTERNAL CONTROL PASS Normal [facility] Comment on above: Performed By: #### 2 51061 #### [facility],[address] [place], [place] [phone] SARS ANTIGEN Negative Normal NORMAL: NEGATIVE [facility] Comment on above: Performed By: #### 2 70592 #### [facility],[address] [place] [address] SEND TO ? NO Normal [facility] Comment on above: Result Comment: SARS -CoV-2 THIS TEST IS BEING USED UNDER THE FDA EUA PROCEDURE. THIS ASSAY HAS BEEN VALIDATED AT [facility] FOR USE WITH NASAL AND NASOPHARYNGEAL [...] PUBLIC HEALTH AUTHORITIES. Performed By: #### 2 01007 #### [facility],[address] [place] [address] CT ABDOMEN/PELVIS [facility] 2024 CT ABDOMEN/PELVIS [place] [address] Patient: DALY EVANS Phone#: : 1985 Age: 39 Gender: F Pt. Type: ER Account: [id number] Location: 052 Ordering: DONTE Sweeney DIDDAYSI Exam Date: 09/17/2024/5:25 Family Phys: MAGGIE PUTNAM Charge Code: [id number] Physician: Meade Order #: [id number] Dose#: 28.4 PROCEDURE: CT ABDOMEN/PELVIS WITH CONTRAST [...] 39 Gender: F Pt. Type: ER Account: [id number] Location: 052 Ordering: DONTE MEZA Exam Date: 09/17/2024/5:25 Family Phys: MAGGIE PUTNAM Charge Code: [id number] Physician: Meade Order #: [id number] Dose#: 28.4 CONCLUSION: 1. Findings consistent with colitis. 2. Left-sided ostomy is present. Dictated by: Seda Berry MD on 09/17/2024 at 9:27 Approved by: Seda Berry MD on 09/17/2024 at 9:33 Normal [facility] CULTURE BLOOD [IRASEMA]on Microscopic examination of blood, culture CULTURE BLOOD [IRASEMA] _BLOOD CULTURE_ [facility] FOR SCANNED REPORT 09/24/24.1016.DNP.[facility] Comment on above: Performed By: #### 2 09513 #### [facility],[address] [place] [address] Microscopic examination of blood, culture CULTURE BLOOD [JUNTURA] _BLOOD CULTURE_ [facility] RE[facility] AND ATTACHMENTS FOR SCANNED REPORT 09/21/24.1002.DNP.COMPLETE [facility] Comment on above: Performed By: #### 2 67488 ####[facility],[address] [place] [address] CVFLURVon 09-17-2024 FLU A PCR Negative Normal Negative [facility] Comment on above: Result Comment: [place] [id number] Performed By: #### C VFLURV #### [facility] [address] [place] [address] FLU B PCR Negative Normal Negative [facility] Comment on above: Result Comment: [place] s [id number] Performed By: #### C VFLURV #### [facility] [address] [place] [address] RSV PCR Negative Normal Negative [facility] Comment on above: Result Comment: [place] [id number] Performed By: #### C VFLURV #### [facility] [address] [place] [address] SARS-CoV-2 (COVID-19) RNA LAUREANO+probe Ql (Unsp spec) Negative Normal Negative [facility] Comment on above: Result Comment: [place] s [id number] This test has been authorized by FDA [...] results. 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 2 of 2 Normal [facility] ED NURSES CLINICAL NOTEon ED NURSES CLINICAL NOTE Nurse Narrative Nurse Clinical Narrative [address] [address] [id number] 09/17/2024 Patient: DALY EVANS Sex: Female : 1985 Age: 39y Primary Insurance: [employer] [employer] Policy Number: [id number] Subscriber: Other Disposition: Discharge to Alf Disposition [...] on TPN with her PICC Line). 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 SEPSIS SCREEN: POSITIVE. SIRS [...] FOR 1 HOUR.) -- 05:15 09/17/24 [place] rAanza Winn R.N. Allergies: no known drug allergies [...] factors identif (more content not included)... Normal [facility] ED ORDER SHEET (CPOE ONLY)on 09-17-2024 ED ORDER SHEET (CPOE ONLY) Order Sheet Order Sheet [address] [address] [id number] 09/17/2024 Patient: DALY EVANS Sex: Female : 1985 Age: 39y MEASUREMENTS: Wt: 97.5 kg, Ht/Jean-Paul: 67.0 in, BMI: 33.67 ALLERGIES: No known drug allergies MEDICATION/IV/DRIP/FLUID ORDERS Order Description Priority Entered Acknowledged Completed IV NS 0.9 %1000 mL at 999 04:48 09/17/2024 04:49 05:08 mL/hr (NOW x1) Donte Meza D.O. 09/17/2024 09/17/2024 Tahsa Sanchez R.N. R.N. MORPHine IVP4 mg (NOW [...] minutes Renae Riggs Crystal Brenner, R.N. 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 RIrene Oxygen titrate to 92% 04:48 09/17/2024 04:49 09/17/2024 05:09 09/17/2024 Renae Riggs Crystal Brenner, R.N. RIrene [Electronically signed by Donte Meza D.O. (09/17/2024 08:24 EDT)] 4 of 4 Normal [facility] ED PHYSICIAN CLINICAL REPORT on 09-17-2024 ED PHYSICIAN CLINICAL REPORT Narrative Physician Clinical Narrative [address] [address] [id number] 09/17/2024 Patient: DALY EVANS Sex: Female : 1985 Age: 39y Primary Insurance: [employer] [employer] Policy Number: [id number] Subscriber: Other Disposition: Discharge to Alf Disposition [...] normal EDT (more content not included)... Normal [facility] ED SUPER BILLon 09-17-2024 ED SUPER BILL [facility] [address] [place] [address] [id number] 09/17/2024 Patient: DALY EVANS Sex: Female : 1985 Age: 39y Facility Professional Category Item Description Code Code Quantity Fee Total Drugs Normal Saline 540151 1 $0.00 $0.00 1000cc ([id number]) Nurse/E/M EMERGENCY [id number] 1 $0.00 $0.00 DEPT VISIT HIGH SEVERITYFUNCJ (10997-80) Nurse/IV/IM/Infusions Hydration [id number] 3 $0.00 $0.00 additional hour (72352) Nurse/IV/IM/Infusions IVP additional [id number] 3 $0.00 $0.00 push (19453) Nurse/IV/IM/Infusions IVP initial (50302) [id number] 1 $0.00 $0.00 Nurse/Supplies Central Line [id number] 1 $0.00 $0.00 Dressing ([id number]) Grand $0.00 Total Providers [address] [facility] Donte Meza D.O. Chief Complaint ABDOMINAL PAIN. Principal Diagnosis Generalized abdominal pain. (Postoperative abdominal pain). Vomiting with nausea. status post abdominal surgery with left-sided ostomy. ICD-10 Codes R10.84: Generalized abdominal pain R11.2: Nausea with vomiting, unspecified 2 of 2 Normal [facility] ED VISIT SUMMARYon ED VISIT SUMMARY Visit Overview Visit Overview [facility] [address] [place] [address] [id number] 09/17/2024 [id number] Sex[facility] Female : 1985 Age: 39y 09/17/2024 [...] nausea and vomiting. Recent ileostomy placement at [facility]). GENERAL / NEURO / PSYCH: Alert. [...] VOMITING WITH NAUSEA 4 of 4 Normal [facility] ED VITALS FLOW SHEETon 09-17 ED VITALS FLOW SHEET Vitals Vital Sign Flow Sheet [facility] [address] [place] [address] [id number] 09/17/2024 Patient: DALY EVANS Sex: Female : [...] 139/87 94 107 3 of 3 Normal [facility] INFLUENZA VIRUS RAPID A/Bon 09-17-2024 [...] TO THREE DAYS. RESULT CRITICAL? NO Normal [facility] Comment on above: Performed By: #### 2 20017 #### [place] [address] LACTATEon 09-17-2024 Lactate [Moles/Vol] 1.4 mmol/L Normal 0.4 - 2.0 [facility] Comment on above: Performed By: #### 2 24084 #### [place] [address] LIPASEon 09-17-2024 Lipase [Catalytic activity/Vol] 38.0 U/L Normal 15.0 - 78.0 [facility] Comment on above: Result Comment: *PLE ASE NOTE THAT RANGES FOR LIPASE HAVE CHANGED OF 06/24/23 DUE TO AN ASSAY UPDATE BY THE MANAGER GIFT.THE NEW ASSAY RANGE IS 6-250 U/L, WITH A REFERENCE RANGE OF 16-77 U/L. Performed By: #### 2 54365 #### [place] [address] SERUM QUALon 09-17 EXTERNAL QC DONE? YES Normal [facility] Comment on above: Performed By: #### 2 57364 ####[place] [address] INTERNAL QC PASS Normal [facility] Comment on above: Performed By: #### 2 00989 ####[place] [address] SER Negative Normal NEGATIVE [facility] Comment on above: Performed By: #### 2 52557 ####[place] [address] RSVon 09-17-2024 RSV RSV NEGATIVE INTERNAL NEG QC PASS INTERNAL POS QC PASS EXTERNAL QC DONE? YES THIS TESTS IS INTENDED FOR IN VITRO DIAGNOSTIC USE TO AID IN THE DIAGNOSIS OF RESPIRATORY SYNCTYIAL VIRUS INFECTIONS IN AND PEDIATRIC PATIENTS UNDER THE AGE OF 5. IT IS RECOMMENDED THAT NEGATIVE TEST RESULTS BE CONFIRMED BY CELL CULTURE. Normal [facility] Comment on above: Performed By: #### 2 30458 #### [facility],[address] [place] [address] TROPONINon 09-17-2024 HS TROPONIN 7.5 pg/mL Normal 0.0 - 51.4 [facility] Comment on above: Performed By: #### 2 09509 #### [facility],[address] [place] [address] CBC + DIFFon 09-15-2024 Baso # 0.00 x10EE3/UL Normal 0.00 - 0.10 [facility] Comment on above: Performed By: #### 2 30354 #### [facility],[address] [place], [place] [id number] Basophils/100 WBC (Bld) 0.1 % Normal 0.0 - 2.0 [facility] Comment on above: Performed By: #### 2 76424 #### [place] [address] CBC + DIFF Normal [facility] Comment on above: Result Comment: CBC- COMPLETE BLOOD COUNT Performed By: #### 2 38621 #### [facility],[address] [place] [address] EO # 0.01 x10EE3/UL Normal 0.00 - 0.50 [facility] Comment on above: Performed By: #### 2 75246 #### [place] [phone] Eosinophils/100 WBC (Bld) 0.3 % Normal 0.0 - 7.0 [facility] Comment on above: Performed By: #### 2 69048 #### [facility],[address],[place] [address] Erythrocyte distribution width (RBC) [Ratio] 17.5 % High 12.0 - 15.6 [facility] Comment on above: Performed By: #### 2 80039 #### [facility],[address] [place], [place] [phone] Hematocrit (Bld) [Volume fraction] 27.5 % Low 34.0 - 46.0 [facility] Comment on above: Performed By: #### 2 39926 #### [facility],[address] [place], [place] [phone] Hemoglobin (Bld) [Mass/Vol] 8.7 g/dL Low 12.0 - 16.0 [facility] Comment on above: Performed By: #### 2 57067 #### [facility],[address] [place] [address] Lymph # 0.62 x10EE3/UL Low 0.80 - 2.80 [facility] Comment on above: Performed By: #### 2 23880 #### [facility],[address] [place] [address]3353 Lymphocytes/100 WBC (Bld) 13.7 % Low 20.0 - 45.0 [facility] Comment on above: Performed By: #### 2 67341 #### [facility],[address] [place] [address] 03061 MANUAL DIFF N/A Normal [facility] Comment on above: Performed By: #### 2 61490 #### [facility],[address] [place] [address] 25915 MCH (RBC) [Entitic mass] 25 pg Low 27 - 33 [facility] Comment on above: Performed By: #### 2 94843 #### [facility],[address] [place] [address] 96116 MCHC 32 X10 3 Normal 32 - 36 [facility] Comment on above: Performed By: #### 2 97513 #### [facility],[address] [place] [address] 96328 MCV (RBC) [Entitic vol] 80 fL Normal 80 - 99 [facility] Comment on above: Performed By: #### 2 21420 #### [facility],[address] [place] [address] 38927 Pickett # 0.17 x10EE3/UL Low 0.20 - 1.00 [facility] Comment on above: Performed By: #### 2 31785 #### [facility],[address] [place] [address] 47945 MONOS % 3.8 % Normal 0.0 - 10.0 [facility] Comment on above: Performed By: #### 2 26751 #### [facility],[address] [place] [address] 70783 Morphology Stan (Bld) [Interp] N/A Normal [facility] Comment on above: Performed By: #### 2 32588 #### [facility],[address] [place] [address] 22341 Neut # 3.70 x10EE3/UL Normal 1.50 - 7.10 [facility] Comment on above: Performed By: #### 2 46334 #### [facility],[address] [place] [address] 48103 Neutrophils/100 WBC (Bld) 82.2 % High 46.0 - 76.0 [facility] Comment on above: Performed By: #### 2 82362 #### [facility],[address] [place] [address] 80220 PLATELET 272 x10EE3/UL Normal 150 - 450 [facility] Comment on above: Performed By: #### 2 40562 #### [facility],[address] [place] [address] 36972 Platelet mean volume (Bld) [Entitic vol] 8.2 fL Normal 6.6 - 10.5 [facility] Comment on above: Result Comment: AUTO MATED DIFFERENTIAL Performed By: #### 2 71473 #### [facility],[address] [place] [address] 95153 RBC 3.43 x 10EE6/UL Low 4.10 - 5.30 [facility] Comment on above: Performed By: #### 2 09235 #### [facility],[address] [place] [address] 82879 WBC 4.5 x 10EE3/UL Normal 4.5 - 10.8 [facility] Comment on above: Performed By: #### 2 08822 #### [facility],[address] [place] [address] 72516 CMP with eGFRon 09-15-2024 AGE 39 years Normal [facility] Comment on above: Performed By: #### 2 01220 #### [facility],[address] [place] [address] 56008 Albumin [Mass/Vol] 1.9 g/dL Low 3.4 - 5.0 [facility] Comment on above: Performed By: #### 2 27952 #### [facility],[address] [place] [address] 28069 Albumin/Globulin [Mass ratio] 0.3 {ratio} Low 0.9 - 1.6 [facility] Comment on above: Performed By: #### 2 58792 #### [facility],[address] [place] [address] 31382 ALK PHOS 82 U/L Normal 46 - 116 [facility] Comment on above: Performed By: #### 2 00890 #### [facility],[address] [place] [address] 72428 ALT [Catalytic activity/Vol] 27 U/L Normal 16 - 63 [facility] Comment on above: Performed By: #### 2 19384 #### [facility],[address] [place] [address] 02153 Anion gap [Moles/Vol] 13 mmol/L Normal 10 - 20 [facility] Comment on above: Performed By: #### 2 99251 #### [facility],[address] [place] [address] 68232 AST [Catalytic activity/Vol] 31 U/L Normal 13 - 39 [facility] Comment on above: Performed By: #### 2 24116 #### [facility],[address] [place] [address] 07730 B/C RATIO 14 ratio Normal 0 - 30 [facility] Comment on above: Performed By: #### 2 72683 #### [facility],[address] [place] [address] 23965 Bilirubin [Mass/Vol] 0.5 mg/dL Normal 0.2 - 1.0 [facility] Comment on above: Performed By: #### 2 19753 #### [facility],[address] [place] [address] 80598 Calcium [Mass/Vol] 8.0 mg/dL Low 8.5 - 10.1 [facility] Comment on above: Performed By: #### 2 61450 #### [facility],[address] [place] [address] 05174 Chloride [Moles/Vol] 100 mmol/L Normal 98 - 107 [facility] Comment on above: Performed By: #### 2 41116 #### [facility],[address] [place] [address] 60152 CMP with eGFR Normal [facility] Comment on above: Result Comment: COMP REHENSIVE METABOLIC PANEL Performed By: #### 2 52960 #### [facility],[address] [place] [address] 98222 CO2 [Moles/Vol] 24.6 mmol/L Normal 21.0 - 32.0 [facility] Comment on above: Performed By: #### 2 25902 #### [facility],[address] [place] [address] 22081 Creatinine [Mass/Vol] 1.06 mg/dL High 0.55 - 1.02 [facility] Comment on above: Performed By: #### 2 38821 #### [facility],[address] [place] [address] 94224 eGFR 57 ML/MINUTE Low 60 - 999 [facility] Comment on above: Performed By: #### 2 22449 #### [facility],[address] [place] [address] 29816 GFR/1.73 sq M.predicted among non-blacks MDRD (S/P/Bld) [Vol rate/Area] mL/min/{1.73_m2} Normal 60 - 999 [facility] [...] AGE AND OLDER. Performed By: #### 2 85720 #### [facility],[address] [place] [address] 23870 Globulin (S) [Mass/Vol] 5.5 g/dL High 1.5 - 3.8 [facility] Comment on above: Performed By: #### 2 44080 #### [facility],[address] [place] [address] 36898 Glucose [Mass/Vol] 105 mg/dL Normal 74 - 106 [facility] Comment on above: Performed By: #### 2 79932 #### [facility],[address] [place] [address] 36361 Potassium [Moles/Vol] 3.7 mmol/L Normal 3.5 - 5.1 [facility] Comment on above: Performed By: #### 2 92518 #### [facility],[address] [place] [address] 81168 Protein [Mass/Vol] 7.4 g/dL Normal 6.4 - 8.2 [facility] Comment on above: Performed By: #### 2 66809 #### [facility],[address] [place] [address] Sodium [Moles/Vol] 134 mmol/L Low 136 - 145 [facility] Comment on above: Performed By: #### 2 41342 #### [facility],[address] [place] [address] Urea nitrogen [Mass/Vol] 15 mg/dL Normal 7 - 18 [facility] Comment on above: Performed By: #### 2 66068 #### [facility],[address] [place] [address] CBC + DIFFon 09-13-2024 Baso # 0.02 x10EE3/UL Normal 0.00 - 0.10 [facility] Comment on above: Performed By: #### 2 55641 #### [facility],[address] [place] [address] Basophils/100 WBC (Bld) 0.3 % Normal 0.0 - 2.0 [facility] Comment on above: Performed By: #### 2 07344 #### [facility],[address] [place] [address] CBC + DIFF Normal [facility] Comment on above: Result Comment: CBC- COMPLETE BLOOD COUNT Performed By: #### 2 87622 #### [facility],[address] [place] [address] EO # 0.26 x10EE3/UL Normal 0.00 - 0.50 [facility] Comment on above: Performed By: #### 2 62776 #### [facility],[address] [place] [address] 43960 Eosinophils/100 WBC (Bld) 3.9 % Normal 0.0 - 7.0 [facility] Comment on above: Performed By: #### 2 03126 #### [facility],[address] [place] [address] 86387 Erythrocyte distribution width (RBC) [Ratio] 17.0 % High 12.0 - 15.6 [facility] Comment on above: Performed By: #### 2 28112 #### [facility],[address] [place] [address] 85484 Hematocrit (Bld) [Volume fraction] 29.3 % Low 34.0 - 46.0 [facility] Comment on above: Performed By: #### 2 79454 #### [facility],[address] [place], [place] [phone] Hemoglobin (Bld) [Mass/Vol] 9.5 g/dL Low 12.0 - 16.0 [facility] Comment on above: Performed By: #### 2 85615 #### [facility],[address] [place], [place] [phone] Lymph # 1.51 x10EE3/UL Normal 0.80 - 2.80 [facility] Comment on above: Performed By: #### 2 95064 #### [facility],[address] [place] [address] 50415 Lymphocytes/100 WBC (Bld) 22.6 % Normal 20.0 - 45.0 [facility] Comment on above: Performed By: #### 2 07821 #### [facility],[address] [place] [address] 96628 MANUAL DIFF N/A Normal [facility] Comment on above: Performed By: #### 2 56094 #### [facility],[address] [place] [address] 60264 MCH (RBC) [Entitic mass] 26 pg Low 27 - 33 [facility] Comment on above: Performed By: #### 2 19793 #### [facility],[address] [place] [address] 37739 MCHC 33 X10 3 Normal 32 - 36 [facility] Comment on above: Performed By: #### 2 54784 #### [facility],[address] [place] [address] 87339 MCV (RBC) [Entitic vol] 81 fL Normal 80 - 99 [facility] Comment on above: Performed By: #### 2 04606 #### [facility],[address] [place] [address] 87229 Pickett # 0.38 x10EE3/UL Normal 0.20 - 1.00 [facility] Comment on above: Performed By: #### 2 64161 #### [facility],[address] [place] [address] 84626 MONOS % 5.6 % Normal 0.0 - 10.0 [facility] Comment on above: Performed By: #### 2 28019 #### [facility],[address] [place] [address] 74459 Morphology Stan (Bld) [Interp] N/A Normal [facility] Comment on above: Performed By: #### 2 19457 #### [facility],[address] [place] [address] 99271 Neut # 4.54 x10EE3/UL Normal 1.50 - 7.10 [facility] Comment on above: Performed By: #### 2 57714 #### [facility],[address] [place] [address] 69463 Neutrophils/100 WBC (Bld) 67.6 % Normal 46.0 - 76.0 [facility] Comment on above: Performed By: #### 2 41601 #### [facility],[address] [place] [address] 26992 PLATELET 455 x10EE3/UL High 150 - 450 [facility] Comment on above: Performed By: #### 2 24823 #### [facility],[address] [place] [address] 64344 Platelet mean volume (Bld) [Entitic vol] 7.9 fL Normal 6.6 - 10.5 [facility] Comment on above: Result Comment: AUTO MATED DIFFERENTIAL Performed By: #### 2 72957 #### [facility],[address] [place] [address] 67956 RBC 3.63 x 10EE6/UL Low 4.10 - 5.30 [facility] Comment on above: Performed By: #### 2 97113 #### [facility],[address] [place] [address] 63497 WBC 6.7 x 10EE3/UL Normal 4.5 - 10.8 [facility] Comment on above: Performed By: #### 2 99339 #### [facility],[address] [place] [address] 22892 CMP with eGFRon 09-13-2024 AGE 39 years Normal [facility] Comment on above: Performed By: #### 2 86667 #### [facility],[address] [place] [address] 12656 Albumin [Mass/Vol] 2.1 g/dL Low 3.4 - 5.0 [facility] Comment on above: Performed By: #### 2 02213 #### [facility],[address] [place] [address] 17132 Albumin/Globulin [Mass ratio] 0.4 {ratio} Low 0.9 - 1.6 [facility] Comment on above: Performed By: #### 2 37873 #### [facility],[address] [place] [address] 75801 ALK PHOS 95 U/L Normal 46 - 116 [facility] Comment on above: Performed By: #### 2 32330 #### [facility],[address] [place] [address] 02759 ALT [Catalytic activity/Vol] 25 U/L Normal 16 - 63 [facility] Comment on above: Performed By: #### 2 66823 #### [facility],[address] [place] [address] 55007 Anion gap [Moles/Vol] 12 mmol/L Normal 10 - 20 [facility] Comment on above: Performed By: #### 2 34349 #### [facility],[address] [place] [address] 02599 AST [Catalytic activity/Vol] 20 U/L Normal 13 - 39 [facility] Comment on above: Performed By: #### 2 55837 #### [facility],[address] [place] [address] 83947 B/C RATIO 24 ratio Normal 0 - 30 [facility] Comment on above: Performed By: #### 2 01131 #### [facility],[address] [place] [address] 04748 Bilirubin [Mass/Vol] 0.4 mg/dL Normal 0.2 - 1.0 [facility] Comment on above: Performed By: #### 2 22762 #### [facility],[address] [place] [address] 78798 Calcium [Mass/Vol] 8.7 mg/dL Normal 8.5 - 10.1 [facility] Comment on above: Performed By: #### 2 61501 #### [facility],[address] [place] [address] 95725 Chloride [Moles/Vol] 102 mmol/L Normal 98 - 107 [facility] Comment on above: Performed By: #### 2 74869 #### [facility],[address] [place] [address] 18846 CMP with eGFR Normal [facility] Comment on above: Result Comment: COMP REHENSIVE METABOLIC PANEL Performed By: #### 2 50840 #### [facility],[address] [place] [address] 92633 CO2 [Moles/Vol] 27.5 mmol/L Normal 21.0 - 32.0 [facility] Comment on above: Performed By: #### 2 07424 #### [facility],[address] [place] [address] 00620 Creatinine [Mass/Vol] 0.87 mg/dL Normal 0.55 - 1.02 [facility] Comment on above: Performed By: #### 2 20268 #### [facility],[address] [place] [address] 63439 GFR/1.73 sq M.predicted among non-blacks MDRD (S/P/Bld) [Vol rate/Area] mL/min/{1.73_m2} Normal 60 - 999 [facility] Comment on above: Performed By: #### 2 78962 #### [facility] [facility],[address] [place] [address] Result Comment: ACCO RDING TO THE NATIONAL KIDNEY DISEASE EDUCATION PROGRAM(NKDE), A NORMAL eGFR IS A VALUE GREATER THAN OR EQUAL TO 60 ML/MIN/1.73 SQ METERS. CHRONIC KIDNEY DISEASE: <60mL/MIN/1.73 SQ METERS KIDNEY FAILURE: <15mL/MIN/1.73 SQ METERS THIS TEST SHOULD ONLY BE USED FOR PATIENTS 18 YEARS OF AGE AND OLDER. Globulin (S) [Mass/Vol] 5.8 g/dL High 1.5 - 3.8 [facility] Comment on above: Performed By: #### 2 99092 #### [address] [address] Glucose [Mass/Vol] 74 mg/dL Normal 74 - 106 [facility] Comment on above: Performed By: #### 2 06152 #### [facility],[address] [place] [address] 13748 Potassium [Moles/Vol] 3.7 mmol/L Normal 3.5 - 5.1 [facility] Comment on above: Performed By: #### 2 99435 #### [facility],[address] [place] [address] 95380 Protein [Mass/Vol] 7.9 g/dL Normal 6.4 - 8.2 [facility] Comment on above: Performed By: #### 2 89332 #### [facility],[address] [place] [address] 06645 Sodium [Moles/Vol] 138 mmol/L Normal 136 - 145 [facility] Comment on above: Performed By: #### 2 53884 #### [facility],[address] [place] [address] 10723 Urea nitrogen [Mass/Vol] 21 mg/dL High 7 - 18 [facility] Comment on above: Performed By: #### 2 28434 #### [facility],[address] [place] [address] 99360 MAGNESIUMon 09-13-2024 Magnesium [Mass/Vol] 1.8 mg/dL Normal 1.8 - 2.4 [facility] Comment on above: Performed By: #### 2 75599 #### [facility],[address] [place] [address] 44488 CMP with eGFRon 09-10-2024 AGE 39 years Normal [facility] Comment on above: Performed By: #### 2 20870 ####[facility],[address] [place] [address] 51571 Albumin [Mass/Vol] 2.0 g/dL Low 3.4 - 5.0 [facility] Comment on above: Performed By: #### 2 27712 ####[facility],[address] [place] [address] 87702 Albumin/Globulin [Mass ratio] 0.4 {ratio} Low 0.9 - 1.6 [facility] Comment on above: Performed By: #### 2 48306 ####[facility],[address] [place] [address] 05915 ALK PHOS 93 U/L Normal 46 - 116 [facility] Comment on above: Performed By: #### 2 25996 ####[facility],[address] [place] [address] 33289 ALT [Catalytic activity/Vol] 26 U/L Normal 16 - 63 [facility] Comment on above: Performed By: #### 2 79029 ####[facility],[address] [place] [address] 11750 Anion gap [Moles/Vol] 7 mmol/L Low 10 - 20 [facility] Comment on above: Performed By: #### 2 64429 ####[facility],[address] [place] [address] 81287 AST [Catalytic activity/Vol] 22 U/L Normal 13 - 39 [facility] Comment on above: Performed By: #### 2 53929 ####[facility],[address] [place] [address] 05973 B/C RATIO 19 ratio Normal 0 - 30 [facility] Comment on above: Performed By: #### 2 03879 ####[facility],[address] [place] [address] 87902 Bilirubin [Mass/Vol] 0.3 mg/dL Normal 0.2 - 1.0 [facility] Comment on above: Performed By: #### 2 78764 ####[facility],[address] [place] [address] 99550 Calcium [Mass/Vol] 8.3 mg/dL Low 8.5 - 10.1 [facility] Comment on above: Performed By: #### 2 31669 ####[facility],[address] [place] [address] 72646 Chloride [Moles/Vol] 103 mmol/L Normal 98 - 107 [facility] Comment on above: Performed By: #### 2 40240 ####[facility],[address] [place] [address] 47970 CMP with eGFR Normal [facility] Comment on above: Result Comment: COMP REHENSIVE METABOLIC PANEL Performed By: #### 2 66871 ####[facility],[address] [place] [address] 58188 CO2 [Moles/Vol] 30.7 mmol/L Normal 21.0 - 32.0 [facility] Comment on above: Performed By: #### 2 64085 ####[facility],[address] [place] [address] 48726 Creatinine [Mass/Vol] 0.90 mg/dL Normal 0.55 - 1.02 [facility] Comment on above: Performed By: #### 2 87687 ####[facility],[address] [place] [address] 13206 GFR/1.73 sq M.predicted among non-blacks MDRD (S/P/Bld) [Vol rate/Area] mL/min/{1.73_m2} Normal 60 - 999 [facility] Comment on above: Performed By: #### 2 65788 ####[facility],[address] [place] [address] Result Comment: ACCO RDING TO THE NATIONAL KIDNEY DISEASE EDUCATION PROGRAM(NKDE), A NORMAL eGFR IS A VALUE GREATER THAN OR EQUAL TO 60 ML/MIN/1.73 SQ METERS. CHRONIC KIDNEY DISEASE: <60mL/MIN/1.73 SQ METERS KIDNEY FAILURE: <15mL/MIN/1.73 SQ METERS THIS TEST SHOULD ONLY BE USED FOR PATIENTS 18 YEARS OF AGE AND OLDER. Globulin (S) [Mass/Vol] 5.7 g/dL High 1.5 - 3.8 [facility] Comment on above: Performed By: #### 2 93147 ####[facility],[address] [place] [address] 32694 Glucose [Mass/Vol] 94 mg/dL Normal 74 - 106 [facility] Comment on above: Performed By: #### 2 49624 ####[facility],[address] [place] [address] 74265 Potassium [Moles/Vol] 3.5 mmol/L Normal 3.5 - 5.1 [facility] Comment on above: Performed By: #### 2 63279 ####[facility],[address] [place] [address] 87786 Protein [Mass/Vol] 7.7 g/dL Normal 6.4 - 8.2 [facility] Comment on above: Performed By: #### 2 85763 ####[facility],[address] [place] [address] 76184 Sodium [Moles/Vol] 137 mmol/L Normal 136 - 145 [facility] Comment on above: Performed By: #### 2 61997 ####[facility],[address] [place] [address] Urea nitrogen [Mass/Vol] 17 mg/dL Normal 7 - 18 [facility] Comment on above: Performed By: #### 2 32688 ####[facility],[address] [place] [address] MAGNESIUMon 09-10-2024 Magnesium [Mass/Vol] 1.7 mg/dL Low 1.8 - 2.4 [facility] Comment on above: Performed By: #### 2 13528 #### [facility],[address] [place] [address] CBC + DIFFon 09-06-2024 Baso # 0.04 x10EE3/UL Normal 0.00 - 0.10 [facility] Comment on above: Performed By: #### 2 53509 #### [facility],[address] [place] [address] 77728 Basophils/100 WBC (Bld) 0.4 % Normal 0.0 - 2.0 [facility] Comment on above: Performed By: #### 2 51811 #### [facility],[address] [place] [address] CBC + DIFF Normal [facility] Comment on above: Result Comment: CBC- COMPLETE BLOOD COUNT Performed By: #### 2 20648 #### [facility],[address] [place] [address] 78521 EO # 0.14 x10EE3/UL Normal 0.00 - 0.50 [facility] Comment on above: Performed By: #### 2 18491 #### [facility],[address] [place] [address] 57031 Eosinophils/100 WBC (Bld) 1.3 % Normal 0.0 - 7.0 [facility] Comment on above: Performed By: #### 2 10376 #### [facility],[address] [place] [address] Erythrocyte distribution width (RBC) [Ratio] 18.0 % High 12.0 - 15.6 [facility] Comment on above: Performed By: #### 2 57748 #### [facility],[address] [place] [address] Hematocrit (Bld) [Volume fraction] 27.9 % Low 34.0 - 46.0 [facility] Comment on above: Performed By: #### 2 25491 #### [facility],[address] [place] [address] Hemoglobin (Bld) [Mass/Vol] 9.1 g/dL Low 12.0 - 16.0 [facility] Comment on above: Performed By: #### 2 70222 #### [facility],[address] [place] [address] Lymph # 1.68 x10EE3/UL Normal 0.80 - 2.80 [facility] Comment on above: Performed By: #### 2 39037 #### [facility],[address] [place] [address] Lymphocytes/100 WBC (Bld) 16.1 % Low 20.0 - 45.0 [facility] Comment on above: Performed By: #### 2 00729 #### [facility],[address] [place], [place] [id number] MANUAL DIFF N/A Normal [facility] Comment on above: Performed By: #### 2 49599 #### [facility],[address] [place], [place] [id number] MCH (RBC) [Entitic mass] 27 pg Normal 27 - 33 [facility] Comment on above: Performed By: #### 2 67446 #### [facility],[address] [place], [place] [id number] MCHC 33 X10 3 Normal 32 - 36 [facility] Comment on above: Performed By: #### 2 40757 #### [facility],[address] [place] [address] MCV (RBC) [Entitic vol] 83 fL Normal 80 - 99 [facility] Comment on above: Performed By: #### 2 44089 #### [facility],[address] [place] [address] Pickett # 0.87 x10EE3/UL Normal 0.20 - 1.00 [facility] Comment on above: Performed By: #### 2 55694 #### [facility],[address] [place] [address] MONOS % 8.4 % Normal 0.0 - 10.0 [facility] Comment on above: Performed By: #### 2 06130 #### [facility],[address] [place] [address] Morphology Stan (Bld) [Interp] N/A Normal [facility] Comment on above: Performed By: #### 2 16312 #### [facility],[address] [place] [address] Neut # 7.69 x10EE3/UL High 1.50 - 7.10 [facility] Comment on above: Performed By: #### 2 16831 #### [place] [address] Neutrophils/100 WBC (Bld) 73.8 % Normal 46.0 - 76.0 [facility] Comment on above: Performed By: #### 2 05937 #### [place] [address] PLATELET 722 x10EE3/UL High 150 - 450 [facility] Comment on above: Performed By: #### 2 55609 #### [facility],[address],[place] [address] Platelet mean volume (Bld) [Entitic vol] 7.5 fL Normal 6.6 - 10.5 [facility] Comment on above: Result Comment: AUTO MATED DIFFERENTIAL Performed By: #### 2 84725 #### [facility],[address] [place] [address] 90276 RBC 3.37 x 10EE6/UL Low 4.10 - 5.30 [facility] Comment on above: Performed By: #### 2 72559 #### [facility],[address] [place] [address] 46493 WBC 10.4 x 10EE3/UL Normal 4.5 - 10.8 [facility] Comment on above: Performed By: #### 2 36570 #### [facility],[address] [place] [address] 27885 CMP with eGFRon 09-06-2024 AGE 38 years Normal [facility] Comment on above: Performed By: #### 2 35982 ####[facility],[address] [place] [address] 78166 Albumin [Mass/Vol] 1.9 g/dL Low 3.4 - 5.0 [facility] Comment on above: Performed By: #### 2 28570 ####[facility],[address] [place] [address] 74036 Albumin/Globulin [Mass ratio] 0.3 {ratio} Low 0.9 - 1.6 [facility] Comment on above: Performed By: #### 2 20078 ####[facility],[address] [place] [address] 76067 ALK PHOS 97 U/L Normal 46 - 116 [facility] Comment on above: Performed By: #### 2 31530 ####[facility],[address] [place] [address] 40163 ALT [Catalytic activity/Vol] 29 U/L Normal 16 - 63 [facility] Comment on above: Performed By: #### 2 73287 ####[facility],[address] [place] [address] 34281 Anion gap [Moles/Vol] 9 mmol/L Low 10 - 20 [facility] Comment on above: Performed By: #### 2 12074 ####[facility],[address] [place] [address] 31471 AST [Catalytic activity/Vol] 28 U/L Normal 13 - 39 [facility] Comment on above: Performed By: #### 2 39207 ####[facility],[address] [place] [address] 88334 B/C RATIO 21 ratio Normal 0 - 30 [facility] Comment on above: Performed By: #### 2 72671 ####[facility],[address] [place] [address] 50709 Bilirubin [Mass/Vol] 0.3 mg/dL Normal 0.2 - 1.0 [facility] Comment on above: Performed By: #### 2 07726 ####[facility],[address] [place] [address] 62001 Calcium [Mass/Vol] 8.3 mg/dL Low 8.5 - 10.1 [facility] Comment on above: Performed By: #### 2 11151 ####[facility],[address] [place] [address] 88784 Chloride [Moles/Vol] 102 mmol/L Normal 98 - 107 [facility] Comment on above: Performed By: #### 2 36586 ####[facility],[address] [place] [address] 06031 CMP with eGFR Normal [facility] Comment on above: Result Comment: COMP REHENSIVE METABOLIC PANEL Performed By: #### 2 50018 ####[facility],[address] [place] [address] 38559 CO2 [Moles/Vol] 29.5 mmol/L Normal 21.0 - 32.0 [facility] Comment on above: Performed By: #### 2 03601 ####[facility],[address] [place] [address] 25446 Creatinine [Mass/Vol] 0.84 mg/dL Normal 0.55 - 1.02 [facility] Comment on above: Performed By: #### 2 25152 ####[facility],[address] [place] [address] 48678 GFR/1.73 sq M.predicted among non-blacks MDRD (S/P/Bld) [Vol rate/Area] mL/min/{1.73_m2} Normal 60 - 999 [facility] Comment on above: Performed By: #### 2 54005 ####[facility],[address] [place], [place] [id number] Result Comment: ACCO RDING TO THE NATIONAL KIDNEY DISEASE EDUCATION PROGRAM(NKDE), A NORMAL eGFR IS A VALUE GREATER THAN OR EQUAL TO 60 ML/MIN/1.73 SQ METERS. CHRONIC KIDNEY DISEASE: <60mL/MIN/1.73 SQ METERS KIDNEY FAILURE: <15mL/MIN/1.73 SQ METERS THIS TEST SHOULD ONLY BE USED FOR PATIENTS 18 YEARS OF AGE AND OLDER. Globulin (S) [Mass/Vol] 6.3 g/dL High 1.5 - 3.8 [facility] Comment on above: Performed By: #### 2 99673 ####[facility],[address] [place] [address] 45106 Glucose [Mass/Vol] 137 mg/dL High 74 - 106 [facility] Comment on above: Performed By: #### 2 78820 ####[facility],[address] [place] [address] 23804 Potassium [Moles/Vol] 3.8 mmol/L Normal 3.5 - 5.1 [facility] Comment on above: Performed By: #### 2 35873 ####[facility],[address] [place] [address] 51168 Protein [Mass/Vol] 8.2 g/dL Normal 6.4 - 8.2 [facility] Comment on above: Performed By: #### 2 04680 ####[facility],[address] [place] [address] 28536 Sodium [Moles/Vol] 137 mmol/L Normal 136 - 145 [facility] Comment on above: Performed By: #### 2 64424 ####[facility],[address] [place] [address] 60954 Urea nitrogen [Mass/Vol] 18 mg/dL Normal 7 - 18 [facility] Comment on above: Performed By: #### 2 12387 ####[facility],[address] [place] [address] 44271 MAGNESIUMon 09-06-2024 Magnesium [Mass/Vol] 2.0 mg/dL Normal 1.8 - 2.4 [facility] Comment on above: Performed By: #### 2 48260 ####[facility],[address] [place] [address] 96118 PHOSPHORUSon 09-06-2024 Phosphate [Mass/Vol] 3.6 mg/dL Normal 2.6 - 4.7 [facility] Comment on above: Performed By: #### 2 96154 #### [facility],[address] [place] [address] 88616 Culture, Blood (WB)on 2024 CUB Blood cultures x2, f rom two different sites No growth in 5 days. Normal [facility] Comment on above: Performed By: #### M 200.1000 ####[facility] [address] [place], [address] 12 Lead EKGon 08-20-2024 12 Lead EKG Normal [facility] Abdomen/Pelvis W IV Cont ONL Yon 08-20-2024 Abdomen/Pelvis W IV Cont ONLY Normal [facility] CBC W/Diff, Automatedon 07-29 STOMATOCYTE RARE Normal [facility] Comment on above: Performed By: #### L 100.0100, L700.6800, L500.4050, L501.2450, L505.5000 ####[facility] [address] [place], [address] Anisocytosis Ql (Bld) 2+ Normal [facility] Comment on above: Performed By: #### L 100.0100, L700.6800, L500.4050, L501.2450, L505.5000 ####[facility] [address] [place], [address] MICROCYTIC 1+ Normal [facility] Comment on above: Performed By: #### L 100.0100, L700.6800, L500.4050, L501.2450, L505.5000 ####[facility] [address] [place], [address] OVALOCYTE RARE Normal [facility] Comment on above: Performed By: #### L 100.0100, L700.6800, L500.4050, L501.2450, L505.5000 ####[facility] [address] [place], [address] POLYCHROMASIA 2+ Normal [facility] Comment on above: Performed By: #### L 100.0100, L700.6800, L500.4050, L501.2450, L505.5000 ####[facility] [address] [place], [address] CTA Chst, Abd, Pel W and/or WOon 08-20-2024 CTA Chst, Abd, Pel W and/or WO Normal [facility] Comprehensive Metabolic Prof ilon 08-20-2024 Albumin [Mass/Vol] 3.0 g/dL Low 3.2-5.0 [facility] Comment on above: Performed By: #### L 100.0100, L700.6800, L500.4050, L501.2450, L505.5000 ####[facility] [address] [place], [address] Albumin/Globulin [Mass ratio] 0.5 {ratio} Low 0.9-2.4 [facility] Comment on above: Performed By: #### L 100.0100, L700.6800, L500.4050, L501.2450, L505.5000 ####[facility] [address] [place], [address] ALK P 98 U/L Normal 45-117 [facility] Comment on above: Performed By: #### L 100.0100, L700.6800, L500.4050, L501.2450, L505.5000 ####[facility] [address] [place], [address] ALT [Catalytic activity/Vol] 15 U/L Normal 13-56 [facility] Comment on above: Performed By: #### L 100.0100, L700.6800, L500.4050, L501.2450, L505.5000 ####[facility] [address] [place], [address] AST [Catalytic activity/Vol] 20 U/L Normal 15-37 [facility] Comment on above: Performed By: #### L 100.0100, L700.6800, L500.4050, L501.2450, L505.5000 ####[facility] [address] [place], [address] Bilirubin [Mass/Vol] 0.30 mg/dL Normal 0.20-1.00 [facility] Comment on above: Result Comment: For patients on eltrombopag therapy, use of Dimension [place] TBIL is not recommended. Performed By: #### L 100.0100, L700.6800, L500.4050, L501.2450, L505.5000 ####[facility] [address] [place], [address] BUN/CRE 10.9 RATIO Normal 10-20 [facility] Comment on above: Performed By: #### L 100.0100, L700.6800, L500.4050, L501.2450, L505.5000 ####[facility] [address] [place], [address] CA,Total 8.8 mg/dL Normal 8.5-10.1 [facility] Comment on above: Performed By: #### L 100.0100, L700.6800, L500.4050, L501.2450, L505.5000 ####[facility] [address] [place], [address] Chloride [Moles/Vol] 106 mmol/L Normal 98-107 [facility] Comment on above: Performed By: #### L 100.0100, L700.6800, L500.4050, L501.2450, L505.5000 ####[facility] [address] [place], [address] CO2 [Moles/Vol] 22.0 mmol/L Normal 21.0-32.0 [facility] Comment on above: Performed By: #### L 100.0100, L700.6800, L500.4050, L501.2450, L505.5000 ####[facility] [address] [place], [address] Creatinine [Mass/Vol] 1.29 mg/dL High 0.55-1.02 [facility] Comment on above: Result Comment: The validity of the calculated GFR GFRAA in patients over70 years has not been determined. Clinical correlation isessential. Performed By: #### L 100.0100, L700.6800, L500.4050, L501.2450, L505.5000 ####[facility] [address] [place], [address] ECRCL 71.07 ml/min Normal [facility] Comment on above: Performed By: #### L 100.0100, L700.6800, L500.4050, L501.2450, L505.5000 ####[facility] [address] [place], [address] EST GFR - AA 59 mL/min Low >60 [facility] Comment on above: Result Comment: Afri can [place] GFR Calc Performed By: #### L 100.0100, L700.6800, L500.4050, L501.2450, L505.5000 ####[facility] [address] [place], [address] GAP 11 Normal 5-15 [facility] Comment on above: Performed By: #### L 100.0100, L700.6800, L500.4050, L501.2450, L505.5000 ####[facility] [address] [place], [address] GFR/1.73 sq M.predicted among non-blacks MDRD (S/P/Bld) [Vol rate/Area] 48 mL/min/{1.73_m2} Low >60 [facility] Comment on above: Result Comment: Non- GFR Calc Performed By: #### L 100.0100, L700.6800, L500.4050, L501.2450, L505.5000 ####[facility] [address] [place], [address] Globulin (S) [Mass/Vol] 5.6 g/dL High 2.2-4.2 [facility] Comment on above: Performed By: #### L 100.0100, L700.6800, L500.4050, L501.2450, L505.5000 ####[facility] [address] [place], [address] Glucose [Mass/Vol] 187 mg/dL High 74-106 [facility] Comment on above: Result Comment: Fast ing Glucose result greater than or equal to 126 mg/dLsuggests DIABETES MELLITUS per A.D.A. criteria. Performed By: #### L 100.0100, L700.6800, L500.4050, L501.2450, L505.5000 ####[facility] [address] [place], [address] Potassium [Moles/Vol] 3.6 mmol/L Normal 3.5-5.1 [facility] Comment on above: Performed By: #### L 100.0100, L700.6800, L500.4050, L501.2450, L505.5000 ####[facility] [address] [place], [address] Sodium [Moles/Vol] 139 mmol/L Normal 136-145 [facility] Comment on above: Performed By: #### L 100.0100, L700.6800, L500.4050, L501.2450, L505.5000 ####[facility] [address] [place], [address] T PROT 8.6 g/dL High 6.4-8.2 [facility] Comment on above: Performed By: #### L 100.0100, L700.6800, L500.4050, L501.2450, L505.5000 ####[facility] [address] [place], [address] Urea nitrogen [Mass/Vol] 14 mg/dL Normal 7-18 [facility] Comment on above: Performed By: #### L 100.0100, L700.6800, L500.4050, L501.2450, L505.5000 ####[facility] [address] [place], [address] Emergency Department Summary on 08-20-2024 Emergency Department Summary Normal [facility] Lactic Acidon 08-20-2024 Lactate [Moles/Vol] 2.2 mmol/L Invalid Interpretation Code 0.4-1.9 [facility] Comment on above: Order Comment: Y Result Comment: Crit ical Result(s) Called at: 06:12:44 08/20/2024 by:Rossana Wood. Results read back by same. Performed By: #### L 503.6005 ####[facility] [address] [place], [address] Lipaseon 08-20-2024 Lipase [Catalytic activity/Vol] 26 U/L Low 73-393 [facility] Comment on above: Performed By: #### L 100.0100, L700.6800, L500.4050, L501.2450, L505.5000 ####[facility] [address] [place], [address] Partial Thromboplast Timeon 08-20-2024 aPTT Coag (Bld) [Time] 20.9 s Low 24.1-36.2 [facility] Comment on above: Performed By: #### L 300.3900, L300.4310 ####[facility] [address] [place], [address] ,Serum,hCG Quali.on 08-20-2024 HCG, SERUM QUAL Negative Normal [facility] Comment on above: Performed By: #### L 100.0100, L700.6800, L500.4050, L501.2450, L505.5000 ####[facility] [address] [place], [address] Prothrombin Time w/INRon INR Coag (PPP) [Relative time] 1.2 {INR} Normal [facility] Comment on above: Performed By: #### L 300.3900, L300.4310 ####[facility] [address] [place], [address] PT Coag (PPP) [Time] 14.9 s Normal 11.7-14.9 [facility] Comment on above: Performed By: #### L 300.3900, L300.4310 ####[facility] [address] [place], [address] Urinalysis, Completeon 08-20 BACTERIA 3+ /hpf Normal None Seen [facility] Comment on above: Order Comment: CLEAN CATCH Performed By: #### L 400.0001 ####[facility] [address] [place], [address] EPI,SQUAMOUS 0-5 SEEN Normal 5-10 [facility] Comment on above: Order Comment: CLEAN CATCH Performed By: #### L 400.0001 ####[facility] [address] [place], [address] RBC 0-5 SEEN Normal 0-5 [facility] Comment on above: Order Comment: CLEAN CATCH Performed By: #### L 400.0001 ####[facility] [address] [place], [address] Mucus Ql (Urine sed) 0 SEEN Normal [facility] Comment on above: Order Comment: CLEAN CATCH Performed By: #### L 400.0001 ####[facility] [address] [place], [address] WBC 0 SEEN Normal 0-5 [facility] Comment on above: Order Comment: CLEAN CATCH Performed By: #### L 400.0001 ####[facility] [address] [place], [address] Urine Drug Screen (VISTA)on 08-20-2024 AMPHETAMINES Negative Normal <1000 ng/mL [facility] Comment on above: Performed By: #### L 100.0100, L700.6800, L500.4050, L501.2450, L505.5000 ####[facility] [address] [place], [address] BARBITIURATES Negative Normal < 200 ng/mL [facility] Comment on above: Performed By: #### L 100.0100, L700.6800, L500.4050, L501.2450, L505.5000 ####[facility] [address] [place], [place], [phone] BENZODIAZIPINE Negative Normal < 200 ng/mL [facility] Comment on above: Performed By: #### L 100.0100, L700.6800, L500.4050, L501.2450, L505.5000 ####[facility] [address] [place] [address] COCAINE Negative Normal < 300 ng/mL [facility] Comment on above: Performed By: #### L 100.0100, L700.6800, L500.4050, L501.2450, L505.5000 ####[facility] [address] [place] [address] ECSTACY Negative Normal < 500 ng/mL [facility] Comment on above: Performed By: #### L 100.0100, L700.6800, L500.4050, L501.2450, L505.5000 ####[facility] [address] [place] [address] METHADONE Negative Normal < 300 ng/mL [facility] Comment on above: Performed By: #### L 100.0100, L700.6800, L500.4050, L501.2450, L505.5000 ####[facility] [address] [place] [address] OPIATES Positive Abnormal < 300 ng/mL [facility] Comment on above: Performed By: #### L 100.0100, L700.6800, L500.4050, L501.2450, L505.5000 ####[facility] [address] [place] [address] PCP Negative Normal < 25 ng/mL [facility] Comment on above: Performed By: #### L 100.0100, L700.6800, L500.4050, L501.2450, L505.5000 ####[facility] [address] [place], [address] THC Negative Normal < 50 ng/mL [facility] Comment on above: Performed By: #### L 100.0100, L700.6800, L500.4050, L501.2450, L505.5000 ####[facility] [address] [place], [address] VISTA UDS PH 7 Normal [facility] Comment on above: Performed By: #### L 100.0100, L700.6800, L500.4050, L501.2450, L505.5000 ####[facility] [address] [place], [address] Emergency Department Summary on 08-16-2024 Emergency Department Summary Normal [facility] Foot min 3 Viewson 5 Foot min 3 Views Normal [facility] Comprehensive metabolic 2000 panelon 08-08-2024 Albumin [Mass/Vol] 3.8 g/dL Low 3.9 - 4.9 g/dL [facility] ALP [Catalytic activity/Vol] 109 U/L 34 - 123 U/L [facility] ALT [Catalytic activity/Vol] 13 U/L 7 - 38 U/L [facility] Anion gap [Moles/Vol] 12 mmol/L 8 - 15 mmol/L [facility] AST [Catalytic activity/Vol] 16 U/L 13 - 35 U/L [facility] Bilirubin [Mass/Vol] 0.3 mg/dL 0.2 - 1.3 mg/dL [facility] Calcium [Mass/Vol] 9.3 mg/dL 8.5 - 10. 2 mg/dL [facility] Chloride [Moles/Vol] 104 mmol/L 98 - 107 mmol/L [facility] CO2 [Moles/Vol] 23 mmol/L 22 - 30 mmol/L [facility] Creatinine [Mass/Vol] 1.01 mg/dL High 0.58 - 0.96 mg/dL [facility] GFR/1.73 sq M.predicted among non-blacks MDRD (S/P/Bld) [Vol rate/Area] 72 mL/min/{1.73_m2} - PINF [facility] Comment on above: Estimated Glomerular Filtration Rate [...] [Mass/Vol] 85 mg/dL 74 - 99 mg/dL [facility] Comment on above: The [place] Diabete s Association (ADA) provides guidance for [...] Standards of Medical Care in Diabetes 2016, [place] Diabetes Association. Diabetes Care. 2016.39(Suppl 1). Potassium [Moles/Vol] 4 mmol/L 3.7 - 5.1 mmol/L [facility] Protein [Mass/Vol] 8.1 g/dL High 6.3 - 8.0 g/dL [facility] Sodium [Moles/Vol] 139 mmol/L 136 - 144 mmol/L [facility] Urea nitrogen [Mass/Vol] 6 mg/dL Low 7 - 21 mg/dL [facility] Iron and Iron binding capaci ty panelon 08-08-2024 Iron [Mass/Vol] 19 ug/dL Low 41 - 186 ug/dL [facility] Iron binding capacity [Mass/Vol] 483 ug/dL High 232 - 386 ug/dL [facility] Iron/TIBC [Molar ratio] 3.9 % Low 15.0 - 57.0 % [facility] No Panel Informationon 08-08 Interpretation and review of laboratory results Abnormal [facility] CBC W Auto Differential pane l (Bld)on 08-07-2024 Basophils (Bld) [#/Vol] 0.06 10*3/uL [facility] Basophils/100 WBC (Bld) 1 % [facility] Differential cell count method Nom (Bld) Auto [facility] Eosinophils (Bld) [#/Vol] 0.19 10*3/uL [facility] Eosinophils/100 WBC (Bld) 3.3 % [facility] Erythrocyte distribution width (RBC) [Ratio] 19.2 % High 11.5 - 15.0 % [facility] Hematocrit (Bld) [Volume fraction] 31.5 % Low 36.0 - 46.0 % [facility] Hemoglobin (Bld) [Mass/Vol] 8.5 g/dL Low 11.5 - 15.5 g/dL [facility] Immature granulocytes (Bld) [#/Vol] 0.03 10*3/uL [facility] Immature granulocytes/100 WBC (Bld) 0.5 % [facility] Interpretation and review of laboratory results Abnormal [facility] Lymphocytes (Bld) [#/Vol] 1.04 10*3/uL [facility] Lymphocytes/100 WBC (Bld) 17.8 % [facility] MCH (RBC) [Entitic mass] 19.3 pg Low 26.0 - 34.0 pg [facility] MCHC (RBC) [Mass/Vol] 27 g/dL Low 30.5 - 36.0 g/dL [facility] MCV (RBC) [Entitic vol] 71.4 fL Low 80.0 - 100.0 fL [facility] Monocytes (Bld) [#/Vol] 0.4 10*3/uL [facility] Monocytes/100 WBC (Bld) 6.9 % [facility] Neutrophils (Bld) [#/Vol] 4.11 10*3/uL [facility] Neutrophils/100 WBC (Bld) 70.5 % [facility] Nucleated RBC (Bld) [#/Vol] [facility] Nucleated RBC/100 WBC (Bld) [Ratio] 0 % /100 WBC [facility] Platelet mean volume (Bld) [Entitic vol] 9 fL 9.0 - 12.7 fL [facility] Platelets (Bld) [#/Vol] 602 10*3/uL High [facility] RBC (Bld) [#/Vol] 4.41 10*6/uL 3.90 - 5.2 0 m/uL [facility] WBC (Bld) [#/Vol] 5.83 10*3/uL [facility] HbA1c (Bld)on 08-07-2024 Average glucose Estimated from glycated hemoglobin (Bld) [Mass/Vol] 123 mg/dL [facility] Comment on above: eAG: (Estimated aver age glucose) is a calculated value from HgbA1c and is territory sales representative of the average blood glucose level in the last 2-3 month period. HbA1c (Bld) [Mass fraction] 5.9 % High 4.3 - 5.6 % [facility] Comment on above: [place] Diabetes As sociation guidelines indicate that patients with HgbA1c in the range 5.7-6.4% are at increased risk for development of diabetes, and intervention by lifestyle modification may be beneficial. HgbA1c greater or equal to 6.5% is considered diagnostic of diabetes. Interpretation and review of laboratory results Abnormal [facility] 12 Lead EKGon 07-30-2024 12 Lead EKG Normal [facility] Basic Metabolic Profile (BMP )on 07-30-2024 Potassium [Moles/Vol] 2.7 mmol/L Invalid Interpretation Code 3.5-5.1 [facility] Comment on above: Result Comment: RESU LTS CALLED TO NONI 07/30/241705 Jami Draper.REPORT READ BACK BY . SAME AMENDED REPORT 07/30/241705 K previously reported as: 2.7 *L mmol/L Performed By: #### L 100.0100, L700.6800, L500.2500, L300.3900, L300.4310 ####[facility] [address] [place], [address] CBC W/Diff, Automatedon Absolute Lymph 1.10 X10 3/uL Normal 0.83-4.51 [facility] Comment on above: Performed By: #### L 100.0100, L700.6800, L500.2500, L300.3900, L300.4310 ####[facility] [address] [place], [address] Absolute Neut 8.0 X10 3/uL High 2.0-7.7 [facility] Comment on above: Performed By: #### L 100.0100, L700.6800, L500.2500, L300.3900, L300.4310 ####[facility] [address] [place], [address] Basophils/100 WBC (Bld) 0.6 % Normal 0-1 [facility] Comment on above: Performed By: #### L 100.0100, L700.6800, L500.2500, L300.3900, L300.4310 ####[facility] [address] [place], [address] Eosinophils/100 WBC (Bld) 1.6 % Normal 0-5 [facility] Comment on above: Performed By: #### L 100.0100, L700.6800, L500.2500, L300.3900, L300.4310 ####[facility] [address] [place], [address] Erythrocyte distribution width (RBC) [Ratio] 18.5 % High 11.6-14.6 [facility] Comment on above: Performed By: #### L 100.0100, L700.6800, L500.2500, L300.3900, L300.4310 ####[facility] [address] [place], [address] Hematocrit (Bld) [Volume fraction] 29.3 % Low 37-47 [facility] Comment on above: Performed By: #### L 100.0100, L700.6800, L500.2500, L300.3900, L300.4310 ####[facility] [address] [place], [address] Hemoglobin (Bld) [Mass/Vol] 8.3 g/dL Low 12.0-15.0 [facility] Comment on above: Performed By: #### L 100.0100, L700.6800, L500.2500, L300.3900, L300.4310 ####[facility] [address] [place], [address] IG% 0.400 Normal 0.0-0.9 [facility] Comment on above: Result Comment: IG% - Immature Granulocytes (promyelocytes, myelocytes andmetamyelocytes) > 1% indicates that a LEFT SHIFT is Present. Performed By: #### L 100.0100, L700.6800, L500.2500, L300.3900, L300.4310 ####[facility] [address] [place], [address] Lymphocytes/100 WBC (Bld) 11.0 % Low 19-41 [facility] Comment on above: Performed By: #### L 100.0100, L700.6800, L500.2500, L300.3900, L300.4310 ####[facility] [address] [place], [address] MCH (RBC) [Entitic mass] 19.6 pg Low 27.0-32.0 [facility] Comment on above: Performed By: #### L 100.0100, L700.6800, L500.2500, L300.3900, L300.4310 ####[facility] [address] [place], [address] MCHC (RBC) [Mass/Vol] 28.3 g/dL Low 32-36 [facility] Comment on above: Performed By: #### L 100.0100, L700.6800, L500.2500, L300.3900, L300.4310 ####[facility] [address] [place], [address] MCV (RBC) [Entitic vol] 69.1 fL Low 81-99 [facility] Comment on above: Performed By: #### L 100.0100, L700.6800, L500.2500, L300.3900, L300.4310 ####[facility] [address] [place], [address] Monocytes/100 WBC (Bld) 7.1 % Normal 0-10 [facility] Comment on above: Performed By: #### L 100.0100, L700.6800, L500.2500, L300.3900, L300.4310 ####[facility] [address] [place], [address] Neutrophils/100 WBC (Bld) 79.3 % High 47-70 [facility] Comment on above: Performed By: #### L 100.0100, L700.6800, L500.2500, L300.3900, L300.4310 ####[facility] [address] [place], [address] Nucleated RBC (Bld) [#/Vol] 0 10*3/uL Normal 0-5 [facility] Comment on above: Performed By: #### L 100.0100, L700.6800, L500.2500, L300.3900, L300.4310 ####[facility] [address] [place], [address] Platelet mean volume (Bld) [Entitic vol] 8.9 fL Normal 6.2-12.0 [facility] Comment on above: Performed By: #### L 100.0100, L700.6800, L500.2500, L300.3900, L300.4310 ####[facility] [address] [place], [address] Platelets (Bld) [#/Vol] 466 10*3/uL High 150-450 [facility] Comment on above: Performed By: #### L 100.0100, L700.6800, L500.2500, L300.3900, L300.4310 ####[facility] [address] [place], [address] RBC (Bld) [#/Vol] 4.24 10*6/uL Normal 4.2-5.4 [facility] Comment on above: Performed By: #### L 100.0100, L700.6800, L500.2500, L300.3900, L300.4310 ####[facility] [address] [place], [address] RDW SD 45.1 fl High 35.1-43.9 [facility] Comment on above: Performed By: #### L 100.0100, L700.6800, L500.2500, L300.3900, L300.4310 ####[facility] [address] [place], [address] WBC (Bld) [#/Vol] 10.0 10*3/uL Normal 4.4-11.0 [facility] Comment on above: Performed By: #### L 100.0100, L700.6800, L500.2500, L300.3900, L300.4310 ####[facility] [address] [place], [address] Chest 1 View (Portable)on Chest 1 View (Portable) Normal [facility] Emergency Department Summary on 07-30-2024 Emergency Department Summary Normal [facility] Ferritinon 07-30-2024 Ferritin [Mass/Vol] 11 ng/mL Normal 8-252 [facility] Comment on above: Performed By: #### L 503.6030, L503.0622 ####[facility] [address] [place], [address] Iron+Iron Binding Capacityon 07-30-2024 Iron [Mass/Vol] 12 ug/dL Low 50-170 [facility] Comment on above: Performed By: #### L 503.6030, L503.6550 ####[facility] [address] [place], [address] IRON SATURATION 2.5 Low 15.0-55.0 [facility] Comment on above: Performed By: #### L 503.6030, L503.6550 ####[facility] [address] [place], [address] TIBC 480 ug/dL High 250-450 [facility] Comment on above: Performed By: #### L 503.6030, L503.6550 ####[facility] [address] [place], [address] Partial Thromboplast Timeon 07-30-2024 aPTT Coag (Bld) [Time] 28.8 s Normal 24.1-36.2 [facility] Comment on above: Performed By: #### L 100.0100, L700.6800, L500.2500, L300.3900, L300.4310 ####[facility] [address] [place], [address] ,Serum,hCG Quali.on 07-30-2024 HCG, SERUM QUAL Negative Normal [facility] Comment on above: Performed By: #### L 100.0100, L700.6800, L500.2500, L300.3900, L300.4310 ####[facility] [address] [place], [address] Prothrombin Time w/INRon INR Coag (PPP) [Relative time] 1.1 {INR} Normal [facility] Comment on above: Performed By: #### L 100.0100, L700.6800, L500.2500, L300.3900, L300.4310 ####[facility] [address] [place], [address] PT Coag (PPP) [Time] 14.0 s Normal 11.7-14.9 [facility] Comment on above: Performed By: #### L 100.0100, L700.6800, L500.2500, L300.3900, L300.4310 ####[facility] [address] 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 The patient completed Some college. The patient described their childhood as 'ideal'. The patient lives with a roommate in an house (owned by roommate). Feels safe. No guns The patient has 1 child (10yrs). Shared custody with father. 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 No disability. Service: [...] psych meds in 2017 2) 2017 @ [place] for SI (pink slipped from crisis line) 3) 2021 - [place] for SI # of past suicide attempts and methods used:OD in 2017 Intensive outpatient program: 2018 at [facility] - didn't think it was helpful Residential treatment: Denies Prior Diagnosis: Anxiety Disorder, Bipolar Affective Disorder, Borderline Personality Disorder, and Panic Disorder Prior Provider: Followed by PCP Fredrick Boland. Referred to current psych provider. Therapist: Followed at [facility] by [facility]. Monthly check-in Past psychotherapy experience: Extensive Current Anesthesiology Physician Assistant: None Electroconvulsive therapy (ECT): Denies Transcranial magnetic [...] start on next (more content not included)... [facility] HISTORY PHYSICALon 3 HISTORY PHYSICAL HNO ID: [id number] Author: Esa Guillen APRN.BED RUBBER Service: ? Author Type: Nurse Practitioner Type: [...] REFERRAL SOURCE: Psychiatrist - Clayton Granados CNP ([facility]). Last visit 08/16/22 CHIEF COMPLAINT: Treatment [...] The patient was born and raised in [place]. The patient completed Some college. The patient described their childhood as 'ideal'. The patient lives with a roommate in an house (owned by roommate). Feels safe. No guns The patient has 1 child (10yrs). Shared custody with father. 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 No disability. Service: [...] psych meds in 2017 2) 2017 @ [place] for SI (pink slipped from crisis line) 3) 2021 - [place] for SI # of past suicide attempts and methods used:OD in 2017 Intensive outpatient program: 2018 at [facility] - didn't think it was helpful Residential treatment: Denies Prior Diagnosis: Anxiety Disorder, Bipolar Affective Disorder, Borderline Personality Disorder, and Panic Disorder Prior Provider: Followed by PCP Fredrick Boland. Referred to current psych provider. Therapist: Followed at [facility] (practice) by Evans. Monthly check-in Past psychotherapy experience: Extensive Current Anesthesiology Physician Assistant: None Electroconvulsive therapy (ECT): Denies Transcranial magnetic [...] week and st (more content not included)... [facility] 08-24-2022 [facility] Telephone (PSYRL) DALY EVANS ([id number]) 1985 F [facility] Date Time Provider Department 08/24/22 ARIELLA CORTES PSYRL During your visit today, we recorded the following information about you: Ariella Cortes RN 08/24/2022 1:42 PM Signed INTERNAL ([facility]) ECT Referral Received: 08/18/22 - scanned into [facility] From: Clayton Granados @ [facility] ECT Eval: TBD Left voicemail requesting callback in ECT office at [phone] to schedule ECT eval. Awaiting patient response. Ariella Cortes RN 08/30/2022 12:24 PM Addendum Scheduled ECT Eval scheduled on 09/30/22 @ 10am with Esa Guillen Patient encouraged to contact RN Vocational Evaluator at [phone] should any questions or concerns arise between now and then. Ariella Cortes RN 09/30/2022 3:22 PM Signed Patient to receive ECT and related care @ [facility]. MM ECT RN notified AND aware. INTERNAL ([facility]) ECT Referral Received: 08/18/22 - scanned into Epic From: Clayton Granados @ [facility] ECT Eval: 09/30/22 with Esa Guillen [...] Encounter Status:Closed by ARIELLA CORTES on 08/24/[address] [facility] TOX SCREEN ROUT URon 022 Amphetamines Confirm (U) [Mass/Vol] Negative Negative [facility] Barbiturates Urine Negative Negative [facility] Benzodiazepines Urine Negative Negative [facility] Cannabinoids, Urine Positive Abnormal Negative [facility] Cocaine Ql (U) Negative Negative [facility] Ethanol (U) [Mass/Vol] <11 mg/dL [facility] Opiates Screen Ql (U) Negative Negative [facility] oxyCODONE cutoff Screen (U) [Mass/Vol] Negative Negative [facility] Phencyclidine Ql (U) Negative Negative [facility] HEP B SURFACE ANTIGENon 04-28 HEP B SURFACE ANTIGEN Non-Reactive [facility] Comment on above: Result Comment: NONR EACTIVE - NEGATIVE FOR HEPATITIS B SURFACE ANTIGEN Performed By: #### H BSAG, HCVAB, HIV #### [facility] [address] [place] [address] HEPATITIS C ABon 05-25-2021 HEPATITIS C AB Non-Reactive [facility] Comment on above: Result Comment: NONR EACTIVE - <0.80 INDEX IS CONSIDERED NEGATIVE FOR IGG ANTIBODIES TO HCV. Performed By: #### M N, ALC #### [facility] [address] [place] [address] HIV AG/AB COMBOon 05-25-2021 HIV AG/AB COMBO Non-Reactive Normal [facility] Comment on above: Result Comment: NONR EACTIVE - NEGATIVE FOR ANTIBODIES TO HIV-1 AND HIV-2 AND p24 ANTIGEN. Performed By: #### M N, ALC #### [address] [address] ALCOHOLon 05-21-2021 Ethanol [Mass/Vol] 169.0 mg/dL Normal [facility] Comment on above: Result Comment: < 3 mg/dl NONE DETECTED 50-100 mg/dl MAY SHOW SIGNS OF INTOXICATION 300-500 mg/dl COMATOSE LEVEL Performed By: #### M N, ALC #### [address] [address] CBC with AUTO DIFFon 021 BAS0 % 0.30 % Normal 0-2 [facility] Comment on above: Performed By: #### C BC, DIFF (MANUAL) #### [address] [address] Basophils (Bld) [#/Vol] 0.0 10*3/uL Normal 0-0.1 [facility] Comment on above: Performed By: #### C BC, DIFF (MANUAL) #### [address] [address] Eosinophils (Bld) [#/Vol] 0.0 10*3/uL Normal 0.0-1.80 [facility] Comment on above: Performed By: #### C BC, DIFF (MANUAL) #### [address] [address] Eosinophils/100 WBC (Bld) 0.1 % Normal 0-8 [facility] Comment on above: Performed By: #### C BC, DIFF (MANUAL) #### [address] [address] GRAN # 11.7 K/uL High 2.2-9.1 [facility] Comment on above: Performed By: #### C BC, DIFF (MANUAL) #### [address] [address] GRAN % 79.6 % Normal 42-80 [facility] Comment on above: Performed By: #### C BC, DIFF (MANUAL) #### [address] [address] Hematocrit (Bld) [Volume fraction] 42.0 % Normal 37.0-47.0 [facility] Comment on above: Performed By: #### C BC, DIFF (MANUAL) #### [address] [address] Hemoglobin (Bld) [Mass/Vol] 14.3 g/dL Normal 12.0-16.0 [facility] Comment on above: Performed By: #### C BC, DIFF (MANUAL) #### [address] [address] Lymphocytes (Bld) [#/Vol] 2.2 10*3/uL Normal 1.0-4.0 [facility] Comment on above: Performed By: #### C BC, DIFF (MANUAL) #### [address] [address] Lymphocytes/100 WBC (Bld) 15.1 % Low 16-48 [facility] Comment on above: Performed By: #### C BC, DIFF (MANUAL) #### [address] [address] MCV (RBC) [Entitic vol] 93.2 fL Normal 80-97 [facility] Comment on above: Performed By: #### C BC, DIFF (MANUAL) #### [address] [address] MEAN CORPUSCULAR HGB 31.8 pg Normal 26.0-32.0 [facility] Comment on above: Performed By: #### C BC, DIFF (MANUAL) #### [address] [address] MEAN CORPUSCULAR HGB CONC 34.1 g/dL Normal 31.0-36.0 [facility] Comment on above: Performed By: #### C BC, DIFF (MANUAL) #### [address] [address] Monocytes (Bld) [#/Vol] 0.7 10*3/uL Normal 0.1-1.7 [facility] Comment on above: Performed By: #### C BC, DIFF (MANUAL) #### [address] [address] Monocytes/100 WBC (Bld) 4.9 % Normal 3-9 [facility] Comment on above: Performed By: #### C BC, DIFF (MANUAL) #### [facility] [address] [facility] [place] [address] Platelet mean volume (Bld) [Entitic vol] 6.9 fL Normal 6.6-10.5 [facility] Comment on above: Performed By: #### C BC, DIFF (MANUAL) #### [facility] [address] [facility] [place] [address] Platelets (Bld) [#/Vol] 418 10*3/uL Normal 140-450 [facility] Comment on above: Performed By: #### C BC, DIFF (MANUAL) #### [address] [place] [address] RBC (Bld) [#/Vol] 4.51 10*6/uL Normal 4.20-5.50 [facility] Comment on above: Performed By: #### C BC, DIFF (MANUAL) #### [address] [place] [address] RED CELL DISTRI WIDTH 13.0 % Normal 11.0-15.5 [facility] Comment on above: Performed By: #### C BC, DIFF (MANUAL) #### [address] [place] [address] WBC (Bld) [#/Vol] 14.7 10*3/uL High 4.0-11.0 [facility] Comment on above: Performed By: #### C BC, DIFF (MANUAL) #### [address] [place] [address] COMPREHENSIVE METABOLIC PANE Derick 05-21-2021 Albumin [Mass/Vol] 3.5 g/dL Normal 3.4-5.0 [facility] Comment on above: Performed By: #### M N, ALC #### [address] [place] [address] Albumin/Globulin [Mass ratio] 0.9 {ratio} Low 1.1-1.8 [facility] Comment on above: Performed By: #### M N, ALC #### [facility] [address] [place] [address] ALP [Catalytic activity/Vol] 64 U/L Normal 45-117 [facility] Comment on above: Performed By: #### M N, ALC #### [address] [place] [address] ALT [Catalytic activity/Vol] 29 U/L Normal 12-78 [facility] Comment on above: Performed By: #### M N, ALC #### [facility] [address] [facility] [place] [address] Anion gap [Moles/Vol] 9.0 mmol/L Low 11-23 [facility] Comment on above: Performed By: #### M N, ALC #### [facility] [address] [facility] [place] [address] AST [Catalytic activity/Vol] 20 U/L Normal 15-37 [facility] Comment on above: Performed By: #### M N, ALC #### [facility] [address] [facility] [place] [address] Bilirubin [Mass/Vol] 0.3 mg/dL Normal 0.2-1.0 [facility] Comment on above: Performed By: #### M N, ALC #### [address] [place] [address] Calcium [Mass/Vol] 8.5 mg/dL Normal 8.5-10.1 [facility] Comment on above: Performed By: #### M N, ALC #### [facility] [address] [facility] [place] [address] Chloride [Moles/Vol] 107 mmol/L Normal 98-107 [facility] Comment on above: Performed By: #### M N, ALC #### [facility] [address] [facility] [place] [address] CO2 [Moles/Vol] 27.0 mmol/L Normal 21-32 [facility] Comment on above: Performed By: #### M N, ALC #### [facility] [address] [facility] [place] [address] Creatinine [Mass/Vol] 0.80 mg/dL Normal 0.55-1.02 [facility] Comment on above: Performed By: #### M N, ALC #### [facility] [address] [facility] [place] [address] GFR > 60.0 [facility] Comment on above: Performed By: #### M N, ALC #### [facility] [address] [facility] [place] [address] GFR AM > 60.0 [facility] Comment on above: Result Comment: THE NORMAL LEVEL OF GFR VARIES ACCORDING TO AGE, SEX, AND BODY SIZE. A GFR LEVEL OF LESS THAN 60 ML/MIN REPRESENTS LOSS OF THE ADULT LEVEL OF NORMAL KIDNEY FUNCTION. Performed By: #### M N, ALC #### [facility] [address] [facility] [place] [address] Globulin (S) [Mass/Vol] 4.2 g/dL Normal 2.5-4.6 [facility] Comment on above: Performed By: #### M N, ALC #### [address] [place] [address] Glucose [Mass/Vol] 114 mg/dL High 70-100 [facility] Comment on above: Performed By: #### M N, ALC #### [address] [place] [address] Potassium [Moles/Vol] 3.3 mmol/L Low 3.5-5.1 [facility] Comment on above: Performed By: #### M N, ALC #### [address] [place] [address] Protein [Mass/Vol] 7.7 g/dL Normal 6.0-8.3 [facility] Comment on above: Performed By: #### M N, ALC #### [address] [place] [address] Sodium [Moles/Vol] 140 mmol/L Normal 136-145 [facility] Comment on above: Performed By: #### M N, ALC #### [address] [place] [address] Urea nitrogen [Mass/Vol] 6.0 mg/dL Low 7-18 [facility] Comment on above: Performed By: #### M N, ALC #### [address] [place] [address] CPKon 05-21-2021 CPK 359 U/L High 26-192 [facility] Comment on above: Performed By: #### C PK #### [facility] [address] [facility] [place] [address] DIFFERENTIALon 05-21-2021 IMMATURE GRANS NONE SEEN Normal [facility] Comment on above: Performed By: #### C BC, DIFF (MANUAL) #### [facility] [address] [facility] [place] [address] PLATELET ESTIMATE NORMAL Normal [facility] Comment on above: Performed By: #### C BC, DIFF (MANUAL) #### [address] [place] [address] RBC morphology finding Nom (Bld) ESSENTIALLY NORMAL Normal [facility] Comment on above: Performed By: #### C BC, DIFF (MANUAL) #### [facility] [address] [facility] [place] [address] Band form neutrophils/100 WBC (Bld) 6 % Normal 0-10 [facility] Comment on above: Performed By: #### C BC, DIFF (MANUAL) #### [facility] [address] [facility] [place] [address] Eosinophils/100 WBC (Bld) 1 % Normal 0-8 [facility] Comment on above: Performed By: #### C BC, DIFF (MANUAL) #### [facility] [address] [facility] [place] [address] Lymphocytes/100 WBC (Bld) 11 % Low 16-48 [facility] Comment on above: Performed By: #### C BC, DIFF (MANUAL) #### [address] [place] [address] Monocytes/100 WBC (Bld) 6 % Normal 3-9 [facility] Comment on above: Performed By: #### C BC, DIFF (MANUAL) #### [address] [place] [address] Neutrophils/100 WBC (Bld) 76 % Normal 42-80 [facility] Comment on above: Performed By: #### C BC, DIFF (MANUAL) #### [address] [place] [address] TOTAL CELLS COUNTED 100 #CELLS Normal [facility] Comment on above: Performed By: #### C BC, DIFF (MANUAL) #### [address] [place] [address] ED.PDOCon 05-21-2021 ED.PDOC DALY EVANS [id number] Attending provider[facility] [id number] Bebeto Tafoya 1985 35 DOS: 05/21/21 Hx/Exam [...] (Bebeto Tafoya) 05/21/21 09:51 LOVER,DALY Estrella Female [id number] Ordering physician: Yohana Bennett LOC:ER [id number] Attending physician: 1985 35 DO S: 05/21/21 [facility]#: [id number] Exam/Proc: HEAD W/O CONTRAST Dept: COMPUTED TOMOGRAPHY EXAMINATION: CT OF THE HEAD WITHOUT [id number]/25/2021 8:[address] HEAD/BRAIN WITHOUT CONTRAST COMPARISON: [...] 05/21/2021 8:33:15 AM EST Workstation ID : [id number] REPORT SIGNATURE ON FILE Electronically Signed Date/Time: [...] police report and notes to this point. [place] slip written based on patient self-harm, statement of wanti (more content not included)... Normal [facility] HCG URINEon 05-21-2021 Beta HCG ( test) Ql (U) Negative Normal [facility] Comment on above: Order Comment: What Is Urine Source? Clean Catch [place] Performed By: #### H CGUR #### [address] [address] HEAD W/O CONTRASTon 05-21-20 21 HEAD W/O CONTRAST CRISTINADALYMANAN Grandasameer hakeem [id number] Ordering physician: Yohana Bennett LOC:ER [id number] Attending physician: 1985 35 DO S: 05/21/21 Acc#: [id number] Exam/Proc: HEAD W/O CONTRAST Dept: COMPUTED TOMOGRAPHY EXAMINATION: CT OF THE HEAD WITHOUT [id number]/25/2021 8:[address] HEAD/BRAIN WITHOUT CONTRAST COMPARISON: [...] 05/21/2021 8:33:15 AM EST Workstation ID : [id number] REPORT SIGNATURE ON FILE Electronically Signed Date/Time: 05/21/21832 Dictated Date/time: 05/21/21829 CC: Normal [facility] URINE DRUG SCREENon 05-21-20 21 AMPHETAMINES Positive Abnormal [facility] Comment on above: Order Comment: What Is Urine Source? Random Performed By: #### U DRGS #### [address] [address] Other Comment: URINE DRUG SCREENS ARE FOR [...] and can be ordered separately. BARBITURATES Negative [facility] Comment on above: Order Comment: What Is Urine Source? Random Performed By: #### U DRGS #### [address] [address] Other Comment: URINE DRUG SCREENS ARE FOR [...] and can be ordered separately. BENZODIAZEPINES Negative [facility] Comment on above: Order Comment: What Is Urine Source? Random Performed By: #### U DRGS #### [address] [address] Other Comment: URINE DRUG SCREENS ARE FOR [...] and can be ordered separately. COCAINE Negative [facility] Comment on above: Order Comment: What Is Urine Source? Random Performed By: #### U DRGS #### [facility] [address] [place] [address] Other Comment: URINE DRUG SCREENS ARE FOR [...] and can be ordered separately. METHADONE Negative [facility] Comment on above: Order Comment: What Is Urine Source? Random Performed By: #### U DRGS #### [facility] [address] [place] [address] Other Comment: URINE DRUG SCREENS ARE FOR [...] and can be ordered separately. OPIATES Negative [facility] Comment on above: Order Comment: What Is Urine Source? Random Performed By: #### U DRGS #### [facility] [address] [place] [address] Other Comment: URINE DRUG SCREENS ARE FOR [...] and can be ordered separately. PHENCYCLIDINE Negative [facility] Comment on above: Order Comment: What Is Urine Source? Random Performed By: #### U DRGS #### [facility] [address] [place] [address] Other Comment: URINE DRUG SCREENS ARE FOR [...] and can be ordered separately. THC Negative [facility] Comment on above: Order Comment: What Is Urine Source? Random Performed By: #### U DRGS #### [address] [address] Other Comment: URINE DRUG SCREENS ARE FOR [...] DRG SCREEN CUT OFF SEE BELOW Normal [facility] Comment on above: Order Comment: What Is Urine Source? Random Performed By: #### U DRGS #### [address] [address] Other Comment: URINE DRUG SCREENS ARE FOR [...] separately. [facility] WRIST-LEFT CMPL MIN 3 VIEWS DALY EVANS Female [id number] Ordering physician: Yohana Bennett LOC:ER [id number] Attending physician: 1985 35 DO S: 05/21/21 Acc#: [id number] Exam/Proc: WRIST-LEFT CMPL MIN 3 VIEWS Dept: [...] 05/21/2021 8:50:09 AM EST Workstation ID : [id number] REPORT SIGNATURE ON FILE Electronically Signed Date/Time: 05/21/2150 Dictated Date/time: 05/21/21842 CC: [facility] XR Knee - left 4 Viewson IMPRESSION: Findings are suggestive of mild degenerative changes in the left knee. Apartment Assistant Manager: NANCY Transcribe Date/Time: Mar 12 2021 11:00A Dictated by : MATTY CASTELLON MD This examination was interpreted and the report reviewed and electronically signed by: MATTY CASTELLON MD on Mar 12 2021 11:01AM [facility] OF RADIOLOGY * * *Final Report* [...] mild degenerative changes in the left knee. Apartment Assistant Manager: NANCY Transcribe Date/Time: Mar 12 2021 11:00A Dictated by : MATTY CASTELLON MD This examination was interpreted and the report reviewed and electronically signed by: MATTY CASTELLON MD on Mar 12 2021 11:01AM EST [facility] Radiology Study observation (narrative) [facility] XR Knee - left 4 ViewsOrdere d By: Ccf Provider on 03-12-2021 [facility] TS GELon 02-07-2018 TS GEL ABO Group: O Rh, Gel: POS Antibody Screen Gel: NEG Normal [facility] Comment on above: Performed By: #### T SGL ####[employer] [place] [address] Basic Metabolic Panelon 01-25 Anion gap 3 molar conc 8 Normal [facility] Comment on above: Performed By: #### H EMDF, ESR, PT/AP, LACT3, QWNT, CRP2, BMP3 ####[employer] [place] [address] Calcium mass conc 8.8 mg/dL Normal 8.4-10.4 [facility] Comment on above: Performed By: #### H EMDF, ESR, PT/AP, LACT3, QWNT, CRP2, BMP3 ####[facility] [place], [place] CO2 molar conc 24 mmol/L Normal 22-30 [facility] Comment on above: Performed By: #### H EMDF, ESR, PT/AP, LACT3, QWNT, CRP2, BMP3 ####[address] [place], [place] Glucose mass conc 89 mg/dL Normal 70-100 [facility] Comment on above: Performed By: #### H EMDF, ESR, PT/AP, LACT3, QWNT, CRP2, BMP3 ####[address] Urea nitrogen mass conc 10 mg/dL Normal 7-20 [facility] Comment on above: Performed By: #### H EMDF, ESR, PT/AP, LACT3, QWNT, CRP2, BMP3 ####[address] Creatinine mass conc 0.67 mg/dL Normal 0.52-1.25 [facility] Comment on above: Performed By: #### H EMDF, ESR, PT/AP, LACT3, QWNT, CRP2, BMP3 ####[address] GFR/1.73 sq M predicted among blacks MDRD vol rate/area (S/P/Bld) mL/min/{1.73_m2} Normal >60 [facility] Comment on above: Performed By: #### H EMDF, ESR, PT/AP, LACT3, QWNT, CRP2, BMP3 ####[address] [place], [place] GFR/1.73 sq M predicted among non-blacks MDRD vol rate/area (S/P/Bld) mL/min/{1.73_m2} Normal >60 [facility] Comment on above: Result Comment: Sour ce- MDRD equation with creatinine calibration to IDMS(NKDEP) eGFR not recommended for drug dose adjustment Performed By: #### H EMDF, ESR, PT/AP, LACT3, QWNT, CRP2, BMP3 ####[address] [place], [place] Chloride molar conc 108 mmol/L High 98-107 [facility] Comment on above: Performed By: #### H EMDF, ESR, PT/AP, LACT3, QWNT, CRP2, BMP3 ####[address] Potassium molar conc 3.7 mmol/L Normal 3.5-5.1 [facility] Comment on above: Performed By: #### H EMDF, ESR, PT/AP, LACT3, QWNT, CRP2, BMP3 ####[address] [place], [place] Sodium molar conc 140 mmol/L Normal 137-145 [facility] Comment on above: Performed By: #### H EMDF, ESR, PT/AP, LACT3, QWNT, CRP2, BMP3 ####[address] C-Reactive Proteinon 018 CRP mass conc 9.4 mg/L High 0.0-6.0 [facility] Comment on above: Result Comment: . Performed By: #### H EMDF, ESR, PT/AP, LACT3, QWNT, CRP2, BMP3 ####[address] Hemogram w/ Autodiffon 02-06 Abs Baso Cnt 0.0 10*3/uL Normal 0.0-0.2 [facility] Comment on above: Performed By: #### H EMDF, ESR, PT/AP, LACT3, QWNT, CRP2, BMP3 ####[address] [place], [place] Abs Neutrophile Cnt 4.8 10*3/uL Normal 1.8-7.0 [facility] Comment on above: Performed By: #### H EMDF, ESR, PT/AP, LACT3, QWNT, CRP2, BMP3 ####[address] [address] Basophils/100 WBC Auto (Bld) 0.3 % Normal 0.0-2.0 [facility] Comment on above: Performed By: #### H EMDF, ESR, PT/AP, LACT3, QWNT, CRP2, BMP3 ####[address] Eosinophils Auto #/vol (Bld) 0.1 10*3/uL Normal 0.0-0.5 [facility] Comment on above: Performed By: #### H EMDF, ESR, PT/AP, LACT3, QWNT, CRP2, BMP3 ####[address] Eosinophils/100 WBC Auto (Bld) 1.7 % Normal 1.0-6.0 [facility] Comment on above: Performed By: #### H EMDF, ESR, PT/AP, LACT3, QWNT, CRP2, BMP3 ####[address] Erythrocyte distribution width Auto Ratio (RBC) 14.5 % Normal 11.5-14.5 [facility] Comment on above: Performed By: #### H EMDF, ESR, PT/AP, LACT3, QWNT, CRP2, BMP3 ####[address] Granulocytes/100 WBC (Bld) 62.0 % Normal 40.0-80.0 [facility] Comment on above: Performed By: #### H EMDF, ESR, PT/AP, LACT3, QWNT, CRP2, BMP3 ####[address] Hematocrit Auto Volume Fraction (Bld) 40.4 % Normal 35.0-47.0 [facility] Comment on above: Performed By: #### H EMDF, ESR, PT/AP, LACT3, QWNT, CRP2, BMP3 ####[address] Hemoglobin mass conc (Bld) 13.7 g/dL Normal 11.7-16.0 [facility] Comment on above: Performed By: #### H EMDF, ESR, PT/AP, LACT3, QWNT, CRP2, BMP3 ####[address] Lymphocytes Auto #/vol (Bld) 2.3 10*3/uL Normal 1.0-4.3 [facility] Comment on above: Performed By: #### H EMDF, ESR, PT/AP, LACT3, QWNT, CRP2, BMP3 ####[address] Lymphocytes/100 WBC Auto (Bld) 29.4 % Normal 20.0-40.0 [facility] Comment on above: Performed By: #### H EMDF, ESR, PT/AP, LACT3, QWNT, CRP2, BMP3 ####[address] MCH Auto Entitic mass (RBC) 31.2 pg Normal 26.0-34.0 [facility] Comment on above: Performed By: #### H EMDF, ESR, PT/AP, LACT3, QWNT, CRP2, BMP3 ####[address] MCHC Auto mass conc (RBC) 33.9 % Normal 32.0-36.0 [facility] Comment on above: Performed By: #### H EMDF, ESR, PT/AP, LACT3, QWNT, CRP2, BMP3 ####[address] MCV Auto Entitic volume (RBC) 92.2 fL Normal 79.0-98.0 [facility] Comment on above: Performed By: #### H EMDF, ESR, PT/AP, LACT3, QWNT, CRP2, BMP3 ####[address] Monocytes Auto #/vol (Bld) 0.5 10*3/uL Normal 0.0-0.8 [facility] Comment on above: Performed By: #### H EMDF, ESR, PT/AP, LACT3, QWNT, CRP2, BMP3 ####[address] [place], [place] Monocytes/100 WBC Auto (Bld) 6.6 % Normal 2.0-10.0 [facility] Comment on above: Performed By: #### H EMDF, ESR, PT/AP, LACT3, QWNT, CRP2, BMP3 ####[address] [place] Platelet mean volume Auto Entitic volume (Bld) 7.8 fL Normal 7.4-10.4 [facility] Comment on above: Performed By: #### H EMDF, ESR, PT/AP, LACT3, QWNT, CRP2, BMP3 ####[address] Platelets Auto #/vol (Bld) 282 10*3/uL Normal 140-440 [facility] Comment on above: Performed By: #### H EMDF, ESR, PT/AP, LACT3, QWNT, CRP2, BMP3 ####[address] [place] RBC Auto #/vol (Bld) 4.38 10*6/uL Normal 3.80-5.20 [facility] Comment on above: Performed By: #### H EMDF, ESR, PT/AP, LACT3, QWNT, CRP2, BMP3 ####[address] [place] WBC Auto #/vol (Bld) 7.8 10*3/uL Normal 3.6-10.7 [facility] Comment on above: Performed By: #### H EMDF, ESR, PT/AP, LACT3, QWNT, CRP2, BMP3 ####[address] [place] Lactic Acidon 02-06-2018 Lactate molar conc 0.6 mmol/L Low 0.7-2.0 [facility] Comment on above: Performed By: #### H EMDF, ESR, PT/AP, LACT3, QWNT, CRP2, BMP3 ####[facility] [employer] [place] Protime AND APTTon 8 INR Coag RelTime (PPP) 1.0 Normal 0.9-1.1 [facility] Comment on above: Result Comment: Soy [...] EMDF, ESR, PT/AP, LACT3, QWNT, CRP2, BMP3 ####[facility] [place] Prothrombin time (PT) Coag time (PPP) 10.4 s Normal 9.0-12.0 [facility] Comment on above: Result Comment: . Performed By: #### H EMDF, ESR, PT/AP, LACT3, QWNT, CRP2, BMP3 ####[facility] [employer] [id number] [place], [place] aPTT Coag time (Bld) 24.1 s Normal 20.0-30.5 [facility] Comment on above: Result Comment: NOTE : The therapeutic time for Heparin anticoagulation,based on Xa activity inhibition, is an APTT of 46-80seconds. Performed By: #### H EMDF, ESR, PT/AP, LACT3, QWNT, CRP2, BMP3 ####[facility] [place] Sed Rateon 02-06-2018 Sed Rate 13 mm/h Normal 0-20 [facility] Comment on above: Performed By: #### H EMDF, ESR, PT/AP, LACT3, QWNT, CRP2, BMP3 ####[facility] [employer] [id number] [place] [address] hCG Quantitativeon 8 hCG Quantitative < 2 Normal < 3 [facility] Comment on above: Performed By: #### H EMDF, ESR, PT/AP, LACT3, QWNT, CRP2, BMP3 ####[facility] [employer] [id number] [place] [address] History And Physical-Dictate don 01-03-2018 Discharge Summary [facility], [place] [address]CAFJDALY BRADY [facility] [id number] 1983ADMIT 12/08/2017DISCH 12/13/2017DISCHARGE SUMMARYREASON FOR ADMISSIONDaly Evans is a 32 years young, single female who was admitted asan emergency from [facility] on 12/08/2017 with history of increasingdepression and suicidal ideations. She reported multiple psychosocial issuesincluding recent break-up with a boyfriend, loss of adequate housing andunemployment since May,. She is also a single mother of a 5-year-old son. She was contemplating to take an overdose when she call [facility]'s crisis hotline, and following evaluation at [facility] emergency room, she was admitted [...] at bedtime, Seroquel 300 mg at bedtime, Mnlldmcy72 mg at bedtime and trazodone 100 mg [...] [facility] [place] [place].CONDITION AT TIME OF DISCHARGEImproved.LEOBARDO GEORGE, ONEAL 01/03/2018 11:07 [id number] 01/03/2018 11:21 CPP/MODLElectronically Signed By Zakiya George M.D. on 07 Jan 2018 17:56:48 GMT Normal [facility] History And Physical-Dictated [facility], [place] [address]WRZI DALY EVANS [facility] [id number] 1983ADMIT 12/08/2017HISTORY AND PHYSICALIDENTIFICATION DATADaly Evans is a 86-biywa-xcbwh single, female who was admitted asan emergency from [facility] on 12/08/2017.CHIEF COMPLAINTI was talking [facility] my depression and [...] suicide by taking an overdose, she called [facility] crisis hotline, and [facility]. She reported that prior to thisadmission she was taking a number of medications as prescribed by nursepractitioner at [facility]. She was unable to identify all themedication and the strength.FAMILY HISTORYShe denied any knowledge of psychiatric illness in the family. However, shedid report that her only sibling, a brother, has Asperger syndrome andcurrently he lives at home with his parents.PAST PSYCHIATRIC HISTORYShe reported that she has been receiving outpatient treatment at [facility] off and on since the age of 13.She reported that she was admitted to [facility]ry in October 2017for 7 days following an overdose of trazodone, Prozac, and Lamictal.PERSONAL HISTORYShe is a 86-zlbmd-krt young single, female, and mother of a [...] to 7 days.ZAKIYA GEORGE, ONEAL 12/09/2017 11:05 [id number] 12/09/2017 11:34 CPP/MODLElectronically Signed By Zakiya George M.D. on 11 Dec 2017 17:30:48 GMT Normal [address], [place] [address]UFGK DALY EVANS [facility] [id number] 1985DATE 12/12/2017PROGRESS NOTEDaly was seen individually and [...] encouraged to continue with current treatmentplans.ZAKIYA GEORGE, ONELA 12/12/2017 11:18 [id number] 12/12/2017 17:11 CPP/MODLElectronically Signed By Zakiya George M.D. on 14 Dec 2017 21:36:28 GMT Normal [facility] Lipid Panelon 12-09-2017 Cholesterol 168 mg/dL Normal 100-199 [facility] Comment on above: Performed By: #### T , LIPID ####Unless otherwise noted, all testing performed by [place] [address], [place] [id number]: [id number] Director: Willis Paulino M.D. Cholesterol in VLDL mass conc 21 mg/dL Normal 5-40 [facility] Comment on above: Performed By: #### T SH, LIPID ####Unless otherwise noted, all testing performed by [place] [id number]: [id number] Director: Willis Paulino M.D. Cholesterol to HDL Ratio 2.7 {ratio} Low 3.2-5.0 [facility] Comment on above: Result Comment: Jaqui palacio Coronary Heart Disease Risk Factor (CHDRF):Average risk= 4.41/2 Average risk= 3.32 times Average risk= 7.1 Performed By: #### T SH, LIPID ####Unless otherwise noted, all testing performed by [place] [id number]: [id number] Director: Willis Paulino M.D. HDL Cholesterol 62 mg/dL High 40-59 [facility] Comment on above: Performed By: #### T SH, LIPID ####Unless otherwise noted, all testing performed by [place] [id number]: [id number] Director: Willis Paulino M.D. LDL Cholesterol 86 mg/dL Normal 10-150 [facility] Comment on above: Performed By: #### T SH, LIPID ####Unless otherwise noted, all testing performed by [place] [id number]: [id number] Director: Willis Paulino M.D. Triglyceride 105 mg/dL Normal 25-120 [facility] Comment on above: Performed By: #### T SH, LIPID ####Unless otherwise noted, all testing performed by [address] [id number]: [id number] Director: Willis Paulino M.D. TSHon 12-09-2017 Thyroid stimulating hormone (TSH) 1.70 uIU/mL Normal 0.320-5.000 [facility] Comment on above: Result Comment: Samp les from patients routinely receiving high dose biotin therapy(100-300 mg/day) may show falsely decreased results. Please correlateclinically. Performed By: #### T SH, LIPID ####Unless otherwise noted, all testing performed by [address] [id number]: [id number] Director: Willis Paulino M.D. Urinalysis, Routineon 2017 Bilirubin,Urine Negative Normal NEG;NEGATIV E [facility] Comment on above: Performed By: #### U A ####Unless otherwise noted, all testing performed by [address] [id number]: [id number] Director: Willis Paluino M.D. Blood,Urine Negative Normal NEG;NEGATIV E [facility] Comment on above: Performed By: #### U A ####Unless otherwise noted, all testing performed by [address] [id number]: [id number] Director: Willis Paulino M.D. Character Clear [facility] Comment on above: Performed By: #### U A ####Unless otherwise noted, all testing performed by [address] [id number]: [id number] Director: Willis Paulino M.D. Ketone,Urine Negative Normal NEG;NEGATIV E [facility] Comment on above: Performed By: #### U A ####Unless otherwise noted, all testing performed by [address] [id number]: [id number] Director: Willis Paulino M.D. Leuk.Esterase,Urine Negative Normal Negative [facility] Comment on above: Performed By: #### U A ####Unless otherwise noted, all testing performed by [address] [id number]: [id number] Director: Willis Paulino M.D. Nitrite,Urine Negative Normal NEG;NEGATIV E [facility] Comment on above: Performed By: #### U A ####Unless otherwise noted, all testing performed by [address] [id number]: [id number] Director: Willis Paulino M.D. Protein,Urine Negative Normal NEG;NEGATIV E [facility] Comment on above: Performed By: #### U A ####Unless otherwise noted, all testing performed by [address] [id number]: [id number] Director: Willis Paulino M.D. Specific [place],Urine 1.006 Normal 1.003-1.029 [facility] Comment on above: Performed By: #### U A ####Unless otherwise noted, all testing performed by [address], [place] [phone]: [id number] Director: Willis Paulino M.D. Squamous Epithelial 2 /HPF Normal 0-40 [facility] Comment on above: Performed By: #### U A ####Unless otherwise noted, all testing performed by [address] [id number]: [id number] Director: Willis Paulino M.D. Urine, color Yellow Normal [facility] Comment on above: Performed By: #### U A ####Unless otherwise noted, all testing performed by [address] [id number]: [id number] Director: Willis Paulino M.D. Urine, glucose presence Negative Normal NEG;NEGATIV E [facility] Comment on above: Performed By: #### U A ####Unless otherwise noted, all testing performed by [address] [id number]: [id number] Director: Willis Paulino M.D. Urine, leukocytes in sedmiment /[HPF] Normal 0-5 [facility] Comment on above: Performed By: #### U A ####Unless otherwise noted, all testing performed by [address] [id number]: [id number] Director: Willis Paulino M.D. Urine, pH 7.0 [pH] Normal 4.5-8.0 [facility] Comment on above: Performed By: #### U A ####Unless otherwise noted, all testing performed by [place] [address] [place], [place] [phone]: [id number] Director: Willis Paulino M.D. Urobilinogen,Urine < 2.0 Normal <2 [facility] Comment on above: Performed By: #### U A ####Unless otherwise noted, all testing performed by [address] [id number]: [id number] Director: Willis Paulino M.D. Vital Signs Date Time Vital Sign Value Performing Clinician Facility 03-01-2025 10:40-0400 Body mass index (BMI) [Ratio] 28.97 kg/m2 Xochilt Gaston RN HOSPICE.BED RUBBER Work Phone: [facility] 03-01-2025 10:40-0400 Body weight 83.92 kg Xochilt Gaston RN HOSPICE.BED RUBBER Work Phone: [facility] 03-01-2025 10:40-0400 Diastolic blood pressure 70 mm[Hg] Xochilt Collins n RN HOSPICE.BED RUBBER Work Phone: [facility] 03-01-2025 10:40-0400 Heart rate 102 /min Xochilt Cohnman RN HOSPICE.BED RUBBER Work Phone: [facility] 03-01-2025 10:40-0400 Respiratory rate 16 /min Xochilt Marilin RN HOSPICE.BED RUBBER Work Phone: [facility] 03-01-2025 10:40-0400 SaO2% (BldA) [Mass fraction] 97 % Xochilt Marilin RN HOSPICE.BED RUBBER Work Phone: [facility] 03-01-2025 10:40-0400 Systolic blood pressure 118 mm[Hg] Xochilt Marilin RN HOSPICE.BED RUBBER Work Phone: [facility] 01-28-2025 14:18-0400 Body mass index (BMI) [Ratio] 27.06 kg/m2 Ed Odessa RN HOSPICE.BED RUBBER Work Phone: [facility] 01-28-2025 14:18-0400 Body weight 78.38 kg Ed Odessa RN HOSPICE.BED RUBBER Work Phone: [facility] 01-28-2025 14:18-0400 Diastolic blood pressure 64 mm[Hg] Ed Odessa RN HOSPICE.BED RUBBER Work Phone: [facility] 01-28-2025 14:18-0400 Heart rate 112 /min Ed Odessa RN HOSPICE.BED RUBBER Work Phone: [facility] 01-28-2025 14:18-0400 Respiratory rate 14 /min Ed Odessa RN HOSPICE.BED RUBBER Work Phone: [facility] 01-28-2025 14:18-0400 SaO2% (BldA) [Mass fraction] 98 % Ed Odessa RN HOSPICE.BED RUBBER Work Phone: [facility] 01-28-2025 14:18-0400 Systolic blood pressure 112 mm[Hg] Ed Odessa RN HOSPICE.BED RUBBER Work Phone: [facility] 01-10-2025 13:57-0400 Body mass index (BMI) [Ratio] 29.09 kg/m2 Ed Odessa RN HOSPICE.BED RUBBER Work Phone: [facility] 01-10-2025 13:57-0400 Body weight 84.28 kg Ed Odessa RN HOSPICE.BED RUBBER Work Phone: [facility] 01-10-2025 13:57-0400 Diastolic blood pressure 60 mm[Hg] Ed Odessa RN HOSPICE.BED RUBBER Work Phone: [facility] 01-10-2025 13:57-0400 Heart rate 84 /min Ed Odessa RN HOSPICE.BED RUBBER Work Phone: [facility] 01-10-2025 13:57-0400 SaO2% (BldA) [Mass fraction] 99 % Ed Odessa RN HOSPICE.BED RUBBER Work Phone: [facility] 01-10-2025 13:57-0400 Systolic blood pressure 90 mm[Hg] Ed Saxena BENOIT Work Phone: [facility] 01-09-2025 11:00-0400 Body mass index (BMI) [Ratio] 29.59 kg/m2 Research Coordinator [facility] 01-09-2025 11:00-0400 Body weight 85.73 kg Research Coordinator [facility] Comment on above: per patient report using home weight sca 12-31-2024 09:50-0400 Body height 170.2 cm Kirit Devine MD Work Phone: [facility] 12-31-2024 09:50-0400 Body mass index (BMI) [Ratio] 29.62 kg/m2 Kirit Devine MD Work Phone: [facility] 12-31-2024 09:50-0400 Body temperature 97.39 [degF] Kirit Devine MD Work Phone: [facility] 12-31-2024 09:50-0400 Body weight 85.8 kg Kirit Devine MD Work Phone: [facility] 12-31-2024 09:50-0400 Diastolic blood pressure 77 mm[Hg] Kirit Devine MD Work Phone: [facility] 12-31-2024 09:50-0400 Heart rate 111 /min Kirit Devine MD Work Phone: [facility] 12-31-2024 09:50-0400 Respiratory rate 18 /min Kirit Devine MD Work Phone: [facility] 12-31-2024 09:50-0400 SaO2% (BldA) [Mass fraction] 98 % Kirit Devine MD Work Phone: [facility] 12-31-2024 09:50-0400 Systolic blood pressure 106 mm[Hg] Kirit Caldwell Work Phone: [facility] 12-12-2024 19:56-0400 SaO2% (BldA) [Mass fraction] 98 % FREDRICK BOLAND [facility] Comment on above: Order Comment: Specimen Type: ARTERIAL B LOOD SPECIMENOrdering Facility: [facility] Address: [address] [place] [address] Performed By: #### A LLBG ####[facility] LABCLIA [id number] [place] [id number] [place] 12-12-2024 18:09-0400 SaO2% (BldA) [Mass fraction] 99 % FREDRICK BOLAND [facility] Comment on above: Order Comment: Specimen Type: ARTERIAL B LOOD SPECIMENOrdering Facility: [facility] Address: [address] [place] [address] Performed By: #### A LLBG ####[facility] [employer] [id number] [place] [id number] [place] 12-12-2024 14:39-0400 SaO2% (BldA) [Mass fraction] 100 % FREDRICK BOLAND [facility] Comment on above: Order Comment: Specimen Type: ARTERIAL B LOOD SPECIMENOrdering Facility: [facility] Address: [address] [place] [address] Performed By: #### A LLMG ####[facility] [employer] [id number] [place] [id number] [place] 12-12-2024 14:06-0400 SaO2% (BldA) [Mass fraction] 100 % FREDRICK BOLAND [facility] Comment on above: Order Comment: Specimen Type: ARTERIAL B LOOD SPECIMENOrdering Facility: [facility] Address: [address] [place], [place] [id number] Performed By: #### A LLMG ####[facility] [employer] [id number] [place] [id number] [place] 12-12-2024 13:31-0400 SaO2% (BldA) [Mass fraction] 100 % FREDRICK BOLAND [facility] Comment on above: Order Comment: Specimen Type: ARTERIAL B LOOD SPECIMENOrdering Facility: [facility] Address: [address] [place] [address] Performed By: #### A LLMG ####[facility] [id number] [place] [id number] [facility] 12-12-2024 11:41-0400 SaO2% (BldA) [Mass fraction] 100 % FREDRICK BOLAND [facility] Comment on above: Order Comment: Specimen Type: ARTERIAL B LOOD SPECIMENOrdering Facility: [facility] Address: [address] [place] [address] Performed By: #### A LLMG ####[facility] [id number] [place] [id number] [facility] 12-12-2024 10:00-0400 SaO2% (BldA) [Mass fraction] 99 % FREDRICK BOLAND [facility] Comment on above: Order Comment: Specimen Type: ARTERIAL B LOOD SPECIMENOrdering Facility: [facility] Address: [address] [place] [address] Performed By: #### A LLMG ####[facility] [id number] [place] [id number] [facility] 10-02-2024 15:02-0400 Body height 169.5 cm Martín stiQRd DO Work Phone: [facility] 10-02-2024 15:02-0400 Body mass index (BMI) [Ratio] 32.21 kg/m2 Martín ufindadsi DO Work Phone: [facility] 10-02-2024 15:02-0400 Body temperature 97.81 [degF] Martín ufindadsi DO Work Phone: [facility] 10-02-2024 15:02-0400 Body weight 92.53 kg Martín ufindadsi DO Work Phone: [facility] 10-02-2024 15:02-0400 Diastolic blood pressure 72 mm[Hg] Martín ufindadsi DO Work Phone: [facility] 10-02-2024 15:02-0400 Heart rate 114 /min Martín Ramiresi DO Work Phone: [facility] 10-02-2024 15:02-0400 SaO2% (BldA) [Mass fraction] 99 % Martín Ramiresi DO Work Phone: [facility] 10-02-2024 15:02-0400 Systolic blood pressure 101 mm[Hg] Martín Ramiresi DO Work Phone: [facility] 09-19-2024 12:21-0400 Diastolic blood pressure 92 mm[Hg] Angela Blackwood RN HOSPICE.BED RUBBER Work Phone: [facility] 09-19-2024 12:21-0400 Heart rate 114 /min Angela Blackwood RN HOSPICE.BED RUBBER Work Phone: [facility] 09-19-2024 12:21-0400 SaO2% (BldA) [Mass fraction] 96 % Angela Blackwood RN HOSPICE.BED RUBBER Work Phone: [facility] 09-19-2024 12:21-0400 Systolic blood pressure 132 mm[Hg] Angela Blackwood RN HOSPICE.BED RUBBER Work Phone: [facility] 08-16-2024 09:09-0500 Body mass index (BMI) [Ratio] 33.21 kg/m2 Xochilt Cohnman RN HOSPICE.BED RUBBER Work Phone: [facility] 08-16-2024 09:09-0500 Body temperature 97.5 [degF] Xochilt Marilin RN HOSPICE.BED RUBBER Work Phone: [facility] 08-16-2024 09:09-0500 Body weight 98.25 kg Xochilt Marilin RN HOSPICE.BED RUBBER Work Phone: [facility] 08-16-2024 09:09-0500 Diastolic blood pressure 64 mm[Hg] Xochilt Stdanettema n RN HOSPICE.BED RUBBER Work Phone: [facility] 08-16-2024 09:09-0500 Heart rate 104 /min Xochilt Marilin RN HOSPICE.BED RUBBER Work Phone: [facility] 08-16-2024 09:09-0500 SaO2% (BldA) [Mass fraction] 98 % Xochilt Marilin RN HOSPICE.BED RUBBER Work Phone: [facility] 08-16-2024 09:09-0500 Systolic blood pressure 106 mm[Hg] Xochilt Marilin RN HOSPICE.BED RUBBER Work Phone: [facility] 08-07-2024 09:40-0500 Body height 172 cm Xochilt Marilin RN HOSPICE.BED RUBBER Work Phone: [facility] 08-07-2024 09:40-0500 Body mass index (BMI) [Ratio] 33.12 kg/m2 Xochilt Marilin RN HOSPICE.BED RUBBER Work Phone: [facility] 08-07-2024 09:40-0500 Body weight 97.98 kg Xochilt Marilin RN HOSPICE.BED RUBBER Work Phone: [facility] 08-07-2024 09:40-0500 Diastolic blood pressure 72 mm[Hg] Xochilt Stdanettema n RN HOSPICE.BED RUBBER Work Phone: [facility] 08-07-2024 09:40-0500 Heart rate 106 /min Xochilt Marilin RN HOSPICE.BED RUBBER Work Phone: [facility] 08-07-2024 09:40-0500 SaO2% (BldA) [Mass fraction] 96 % Xochilt Marilin RN HOSPICE.BED RUBBER Work Phone: [facility] 08-07-2024 09:40-0500 Systolic blood pressure 108 mm[Hg] Xochilt Marilin RN HOSPICE.BED RUBBER Work Phone: [facility] 03-29-2022 12:23-0400 Body temperature 97.5 [degF] Fredrick Boland DO Work Phone: [facility] 03-29-2022 12:23-0400 Body weight 100.7 kg Fredrick Boland DO Work Phone: [facility] 03-29-2022 12:23-0400 Diastolic blood pressure 60 mm[Hg] Fredrick Boland DO Work Phone: [facility] 03-29-2022 12:23-0400 Heart rate 76 /min Fredrick Boland DO Work Phone: [facility] 03-29-2022 12:23-0400 Respiratory rate 16 /min Fredrick Boland DO Work Phone: [facility] 03-29-2022 12:23-0400 Systolic blood pressure 120 mm[Hg] Fredrick Boland DO Work Phone: [facility] 02-02-2022 09:00-0400 Body temperature 97.5 [degF] Fredrick Boland DO Work Phone: [facility] 02-02-2022 09:00-0400 Body weight 100.25 kg Fredrick Boland DO Work Phone: [facility] 02-02-2022 09:00-0400 Diastolic blood pressure 70 mm[Hg] Fredrick Boland DO Work Phone: [facility] 02-02-2022 09:00-0400 Heart rate 80 /min Fredrick Boland DO Work Phone: [facility] 02-02-2022 09:00-0400 Respiratory rate 16 /min Fredrick Boland DO Work Phone: [facility] 02-02-2022 09:00-0400 Systolic blood pressure 100 mm[Hg] Fredrick Boland DO Work Phone: [facility] 10-23-2021 08:43-0400 Body weight 97.52 kg Xochilt Marilin RN HOSPICE.BED RUBBER Work Phone: [facility] 10-23-2021 08:43-0400 Diastolic blood pressure 82 mm[Hg] Xochilt Stozzie n RN HOSPICE.BED RUBBER Work Phone: [facility] 10-23-2021 08:43-0400 Heart rate 79 /min Xochilt Marilin RN HOSPICE.BED RUBBER Work Phone: [facility] 10-23-2021 08:43-0400 Respiratory rate 16 /min Xochilt Marilin RN HOSPICE.BED RUBBER Work Phone: [facility] 10-23-2021 08:43-0400 SaO2% (BldA) [Mass fraction] 99 % Xochilt Marilin RN HOSPICE.BED RUBBER Work Phone: [facility] 10-23-2021 08:43-0400 Systolic blood pressure 122 mm[Hg] Xochilt Marilin RN HOSPICE.BED RUBBER Work Phone: [facility] Encounters Encounter Date Encounter Type Care Provider Facility Start: 05-02-2025 End: 05-02-2025 ambulatory KARTHIK PREBISH Facility:[facility] Start: 04-30-2025 End: 04-30-2025 ambulatory FREDRICK L BOLAND Facility:[facility] Start: 04-22-2025 ambulatory FREDRICK BOLAND DO Faci lity:A Start: 04-10-2025 End: [facility] [facility] Start: 04-06-2025 ambulatory Yoseph Fonseca Facili ty:[facility] Start: 04-01-2025 End: 04-01-2025 ambulatory [facility] Facility:[facility] Start: 03-26-2025 ambulatory Fredrick Boland Facilit y:[facility] Start: 03-14-2025 End: 03-26-2025 ambulatory Yoseph Raymundo Facility:[facility] Start: 03-07-2025 End: 03-07-2025 ambulatory [facility] Facility:[facility] Start: 03-06-2025 End: 03-08-2025 ambulatory Xochilt Marilin RN HOSPICE.BED RUBBER Work Phone: [facility] Lead Comment on above: Gabapentin Refill Request Start: 03-05-2025 End: 03-05-2025 E-mail encounter from caregiver Clayton Granados APRN.CNP Work Phone: Psychiatry Start: 03-05-2025 End: 03-05-2025 Patient encounter procedure Clayton Granados APRN.BED RUBBER Work Phone: Psychiatry Comment on above: Appointment Start: 03-01-2025 End: 03-11-2025 Telephone encounter Intestinal Trans Coord Main Work Phone: [facility] Comment on above: Anticoagulation - In itial Consult Start: 03-01-2025 End: 03-01-2025 Office outpatient visit 25 minutes Xochilt Gaston RN HOSPICE.BED RUBBER Work Phone: Family Medicine Lead Comment on above: Short bowel syndrome , 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); Hypokalemia; Malnutrition of moderate degree (HCC); Anticoagulation management encounter; 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) Start: 03-01-2025 End: 03-01-20[facility] Start: 02-28-2025 End: 03-01-2025 ambulatory Kirit Devine MD Work Phone: [facility] Comment on above: Attn Libia Start: 02-26-2025 End: 02-26-2025 [facility] Clayton Granados APRN.BED RUBBER Work Phone: Psychiatry Comment on above: Anxiety [...] Evaluation and management of inpatient Donte Espinal Facility:[facility] Start: 02-14-2025 End: 02-24-2025 ambulatory Yoseph Fonseca Facility:[facility] Start: 02-11-2025 End: 02-11-2025 ambulatory Fredrick Boladn DO Work Phone: [facility] Lead Start: 02-11-2025 End: 02-11-2025 Patient encounter procedure Fredrick Boland DO Work Phone: [facility] Lead Comment on above: Referral Start: 02-11-2025 End: 02-12-2025 Telephone encounter Fredrick Boland DO Work Phone: [facility] [place] Comment on above: Consult Start: 02-08-2025 [...] Start: 02-05-2025 End: 02-05-2025 ambulatory Fredrick Boland Facility:[facility] Start: 02-05-2025 End: 02-05-2025 ambulatory Ed Saxena Facility:[facility] Start: 01-28-2025 End: 01-28-2025 Office outpatient visit 25 minutes Ed Saxena APRN.CNP Work Phone: [facility] Comment on above: 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); Anticoagulation management encounter; Short bowel syndrome, 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; Malnutrition of moderate degree (HCC); Hypokalemia; Anemia, unspecified type; PICC (peripherally inserted central catheter) in place Start: 01-28-2025 End: 01-28-2025 ambulatory FREDRICK BOLAND Facility:[facility] Start: 01-28-2025 End: 01-28-2025 Telephone encounter Jigna HowellRn) [facility] Comment on above: Research (JOSEPH JONATAN / [id number]) Start: 01-24-2025 End: 01-24-2025 Telephone encounter Hpn Strapping Machine Tender Work Phone: Gastroenterology Start: 01-24-2025 End: 01-24-2025 ambulatory Yoseph Raymundo Facility:[facility] Start: 01-23-2025 End: 01-23-2025 Telephone encounter Hpn Strapping Machine Tender Work Phone: Gastroenterology Start: 01-22-2025 End: 01-22-2025 ambulatory Hpn Strapping Machine Tender Work Phone: Gastroenterology Start: 01-21-2025 End: 01-21-2025 ambulatory FREDRICK BOLAND Facility:[facility] Start: 01-17-2025 End: 01-17-2025 Telephone encounter Hpn Strapping Machine Tender Work Phone: Gastroenterology Start: 01-15-2025 End: 01-24-2025 Follow-up encounter Ed Saxena APRN.BED RUBBER Work Phone: [facility] Comment on above: Results Start: 01-14-2025 End: 01-14-2025 Telephone encounter Ed Saxena APRN.BED RUBBER Work Phone: [facility] Start: 01-11-2025 End: 01-11-2025 ambulatory CLAYTON GRANADOS Facility:[facility] Start: 01-11-2025 End: 01-11-2025 [facility] Clayton Granados APRN.BED RUBBER Work Phone: Psychiatry Comment on above: ELIJAH (generalized anx iety disorder) (Primary Dx); Anxiety about health; Bipolar II disorder (HCC); Encounter for long-term (current) use of medications; Insomnia due to other mental disorder Start: 01-10-2025 End: 01-10-2025 ambulatory FREDRICK BOLAND Facility:[facility] Start: 01-10-2025 End: 01-10-2025 Office outpatient visit 40 minutes Ed Saxena APRN.BED RUBBER Work Phone: [facility] Comment on above: 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); Pain associated with surgical procedure; Removal of gilberto; Visit for suture removal; Screening for depression; Hypokalemia; Blood thinned due to long-term anticoagulant use Start: 01-10-2025 End: 01-10-2025 ambulatory FREDRICK L BOLAND Facility:[facility] Start: 01-09-2025 End: 01-09-2025 Telephone encounter Research Coordinator Clinical Research Comment on above: Research (IRB: [id number] Caring for OutPatiEnts after Acute Kidney Injury (COPE-JONATAN) trial PI: Dr. Juan Manuel Byrd) Start: 01-08-2025 End: 01-10-2025 Telephone encounter Hpn Strapping Machine Tender Work Phone: Gastroenterology Comment on above: Critical Lab Start: 01-08-2025 End: 01-08-2025 ambulatory Fredrick Britorison Facility:[facility] Start: 01-07-2025 End: 01-07-2025 Telephone encounter Larry Betancourt MD [facility] Comment on above: Fabric Transition of Care Start: 01-04-2025 End: 01-04-2025 Telephone encounter Dayan LUA Hematology/Oncology Start: 01-03-2025 End: 01-03-2025 Telephone encounter Dayan LUA Hematology/Oncology Start: 01-02-2025 End: 01-02-2025 Telephone encounter Jigna Rivera) [facility] Comment on above: Transition Of Care Start: 01-01-2025 End: 01-01-2025 Telephone encounter Fredrick Pinedaon Work Phone: NOC Comment on above: Transition Of Care Start: 01-01-2025 ambulatory Fredrick Boland Facilit y:[facility] Start: 12-31-2024 End: 12-31-2024 Patient encounter procedure Kirit Devine MD Work Phone: Transplant Center Comment on above: S/P exploratory lapa rotomy Start: 12-31-2024 End: 12-31-2024 ambulatory FREDRICK L BOLAND Facility:[facility] Start: 12-25-2024 End: 12-27-2024 ambulatory Jigna Rivera) [facility] Comment on above: Research (JOSEPH CHUENG / [id number]) Research (JOSEPH-JONATAN Maday manuel/IRB: [id number]- Pharmacist Contact ) Start: 12-25-2024 End: 12-25-2024 Telephone encounter Intestinal Trans Coord Main Work Phone: Transplant Center Comment on above: Hospital F/U Transition Of Care ( RC f/u discharge LVM /) Start: 12-24-2024 End: 12-24-2024 ambulatory Fredrick Boland Facility:[facility] Start: 12-21-2024 End: 12-30-2024 Orders Only [...] questions, please feel call Yuri Salcedo at [phone]/) Start: 12-13-2024 End: 12-13-2024 Telephone encounter Intestinal Trans Coord Main Work Phone: Transplant Center Comment on above: Return Call Request Start: 11-28-2024 End: 11-28-2024 Telephone encounter Intestinal Trans Coord Main Work Phone: Transplant Center Comment on above: Return Call Request Start: 11-28-2024 End: 12-21-2024 Evaluation and management of inpatient SANDRA RILEY Facility:[facility] Start: 11-27-2024 End: 11-27-2024 Telephone encounter Kirit Devine MD Work Phone: Transplant Center Start: 11-21-2024 End: 11-23-2024 Evaluation and management of inpatient Taras Sue Facility:[facility] Start: 11-21-2024 ambulatory Taras Sue Fac ility:[facility] Start: 11-14-2024 ambulatory Joshua Nazario Facility:[facility] Start: 11-13-2024 End: 11-16-2024 ambulatory Fredrick Boland Facility:[facility] Start: 11-13-2024 End: 11-16-2024 Evaluation and management of inpatient Ashley Rosen Facility:[facility] Start: 11-12-2024 End: 11-12-2024 Telephone encounter [facility] Start: 11-06-2024 End: 11-06-2024 Telephone encounter Fredrick Boland DO Work Phone: [address] [place] [address] Comment on above: Transition Of Care ( Left V/m ) Start: 11-05-2024 End: 11-05-2024 Telephone encounter [facility] Start: 10-30-2024 End: 10-30-2024 Telephone encounter Larry Betancourt MD [facility] Comment on above: Fabric Transition of Care Start: 10-28-2024 ambulatory Taras F Linette Fac ility:[facility] Start: 10-28-2024 End: 11-05-2024 Evaluation and management of inpatient Taras F Linette Facility:[facility] Start: 10-26-2024 End: 10-26-2024 Patient encounter procedure Stephie Montoya MD Work Phone: Gastroenterology Comment on above: On total parenteral nutrition (TPN) (Primary Dx) Start: 10-19-2024 End: 10-26-2024 Evaluation and management of inpatient MICHAEL ELLIS Facility:[id number] Start: 10-19-2024 ambulatory MAGGIE PUTNAM [facility] Start: 10-19-2024 End: 10-19-2024 Emergency department patient visit HERBERT GANDHI [facility] Start: 10-09-2024 End: 10-12-2024 ambulatory ROSA MARIA BULLOCK Facility:[id number] Start: 10-09-2024 End: 10-10-2024 Telephone encounter Martín Pendleton DO Work Phone: Hematology/Oncology Comment on above: Results; Follow Up Start: 10-09-2024 End: 10-09-2024 Emergency department [facility] Start: 10-08-2024 End: 10-12-2024 Telephone encounter Nico Bashir [facility] Transplant Center Comment on above: Virtual Education Vi sit Start: 10-03-2024 End: 10-03-2024 Telephone encounter Martín Pendleton DO Work Phone: Hematology/Oncology Comment on above: Electronic Communica tion Start: 10-02-2024 End: 10-02-2024 Patient encounter procedure Martín Sameer Pendleton DO Work Phone: Hematology/Oncology Start: 10-02-2024 End: 10-03-2024 ambulatory Lab/Port Ernesto [facility] Work Phone: Hematology/Oncology Comment on above: [...] limb ischemia; longterm (current) use of aspirin; 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 Start: 09-19-2024 End: 09-19-2024 ambulatory FREDRICK BOLAND Facility:[facility] Start: 09-17-2024 End: 09-17-2024 Emergency department patient visit MAGGIE VO [facility] Start: 09-12-2024 End: 09-14-2024 Telephone encounter [...] Start: 09-03-2024 End: 10-26-2024 ambulatory MAGGIE VO [facility] Start: 08-28-2024 End: 08-28-2024 Telephone encounter Akua Grigsby MD Work Phone: Vascular Medicine Start: 08-20-2024 End: 08-20-2024 ambulatory Katelyn Villagran RN HOSPICE.BED RUBBER Work Phone: Critical Care Start: 08-20-2024 End: 09-03-2024 Evaluation and management of inpatient FREDRICK BOLAND Facility:[facility] Start: 08-20-2024 End: 08-20-2024 Emergency department patient visit Fredrick Boland Facility:[facility] Start: 08-16-2024 End: 08-16-2024 Emergency department patient visit Fredrick Britorison Facility:[facility] Start: 08-16-2024 End: 08-16-2024 ambulatory XOCHILT GASTON Facility:[facility] Start: 08-16-2024 End: 08-16-2024 Office outpatient visit 25 minutes Xochilt Gaston RN HOSPICE.BED RUBBER Work Phone: [facility] [place] Comment on above: Productive cough (Pr imary Dx); Eczema, unspecified type Start: 08-08-2024 End: 08-29-2024 Follow-up encounter Xochilt Gaston APRN.BED RUBBER Work Phone: [facility] [place] Comment on above: Anemia, unspecified type (Primary Dx) Start: 08-07-2024 End: 08-07-2024 Telephone encounter Xochilt Gaston APRN.BED RUBBER Work Phone: [facility] [place] Comment on above: Results; EKG Start: 08-07-2024 End: 08-07-2024 ambulatory XOCHILTCARLOS GASTON Facility:[facility] Start: 08-07-2024 End: 08-07-2024 Office outpatient visit 25 minutes Xochilt Gaston APRN.BED RUBBER Work Phone: [facility] Comment on above: Medication managemen t (Primary Dx); Hypokalemia; Low hemoglobin; Anemia, unspecified type; Elevated hemoglobin A1c Start: 07-30-2024 End: 07-30-2024 Emergency department patient visit [facility] Facility:[facility] Start: 06-19-2024 End: 06-21-2024 ambulatory Clayton Granados APRN.BED RUBBER Work Phone: Psychiatry Comment on above: EKG Start: 05-21-2024 End: 05-21-2024 ambulatory [facility] Facility:[facility] Start: 05-18-2024 End: 05-18-2024 ambulatory [facility] Facility:[facility] Start: 05-18-2024 End: 05-18-2024 [facility] Clayton Granados APRN.BED RUBBER Work Phone: Psychiatry Comment on above: ELIJAH (generalized anx iety disorder) (Primary Dx); Panic attacks; Insomnia due to other mental disorder; Bipolar II disorder (HCC); Encounter for long-term (current) use of medications; History of marijuana use; Psychosocial stressors Start: 04-24-2024 End: 04-26-2024 ambulatory Clayton Granados APRN.BED RUBBER Work Phone: Psychiatry Comment on above: UA Start: 03-27-2024 End: 03-28-2024 ambulatory Clayton Granados APRN.BED RUBBER Work Phone: Psychiatry Comment on above: Lexapro and zyprexa Start: 03-21-2024 End: 03-21-2024 ambulatory Clayton Granados APRN.BED RUBBER Work Phone: Psychiatry Start: 03-21-2024 End: 03-21-2024 Patient encounter procedure Clayton Lila Granados RN HOSPICE.BED RUBBER Work Phone: Psychiatry Comment on above: Appointment Start: 03-03-2024 End: 03-03-2024 ambulatory Clayton Granados RN HOSPICE.BED RUBBER Work Phone: Psychiatry Comment on above: NO SHOW (Primary Dx) Start: 03-03-2024 End: 03-03-2024 Telemedicine consultation with patient Clayton Granados RN HOSPICE.BED RUBBER Work Phone: Psychiatry Start: 02-21-2024 End: 02-21-2024 ambulatory Clayton Lila Granados RN HOSPICE.BED RUBBER Work Phone: Psychiatry Comment on above: Lexapro Start: 01-26-2024 ambulatory Clayton Lila Martins u RN HOSPICE.BED RUBBER Work Phone: Psychiatry Comment on above: Appt Start: 01-19-2024 End: 01-19-2024 ambulatory Clayton Lila Granados RN HOSPICE.BED RUBBER Work Phone: Psychiatry Comment on above: NO SHOW (Primary Dx) Start: 01-19-2024 End: 01-19-2024 Telemedicine consultation with patient Clayton Granados RN HOSPICE.BED RUBBER Work Phone: Psychiatry Start: 12-30-2023 ambulatory Clayton Lila Martins u RN HOSPICE.BED RUBBER Work Phone: Psychiatry Start: 12-30-2023 End: 12-30-2023 Patient encounter procedure Clayton Granados RN HOSPICE.BED RUBBER Work Phone: Psychiatry Comment on above: Appointment APPOINTMENT CANCELLE D (Primary Dx) Start: 12-30-2023 End: 12-30-2023 Telemedicine consultation with patient Clayton Granados RN HOSPICE.BED RUBBER Work Phone: Psychiatry Start: 12-12-2023 Refill Fredrick goodwin DO Work Phone: Family [facility] Comment on above: Refill Request Start: 12-10-2023 Get Medical Advice Fredrick Boland DO Work Phone: [facility] [place] Comment on above: Refill Start: 11-12-2023 ambulatory Clayton Lila roman RN HOSPICE.BED RUBBER Work Phone: Psychiatry Comment on above: Zyprexa Start: 10-19-2023 ambulatory Fredrick godowin DO Work Phone: Internal Medicine [place] Start: 09-27-2023 Refill Yesenia Juan Carlos RN HOSPICE.BED RUBBER Work Phone: [facility] [place] Comment on above: Refill Request Start: 09-02-2023 End: 09-02-2023 [facility] Clayton Granados RN HOSPICE.BED RUBBER Work Phone: Psychiatry Comment on above: Bipolar II disorder (HCC) (Primary Dx); Encounter for long-term (current) use of medications; Panic disorder without agoraphobia; History of marijuana use; ELIJAH (generalized anxiety disorder) Start: 05-23-2023 ambulatory Clayton roman RN HOSPICE.BED RUBBER Work Phone: Psychiatry Comment on above: Zyprexa Start: 05-16-2023 End: 05-16-2023 [facility] Clayton Granados RN HOSPICE.BED RUBBER Work Phone: Psychiatry Comment on above: Encounter for long-t erm (current) use of medications (Primary Dx); ELIJAH (generalized anxiety disorder); Bipolar II disorder (HCC); Panic disorder without agoraphobia Start: 04-18-2023 End: 04-18-2023 [facility] Clayton Granados RN HOSPICE.BED RUBBER Work Phone: Psychiatry Comment on above: ELIJAH (generalized anx iety disorder) (Primary Dx); Panic attacks; Bipolar II disorder (HCC); Occasional use of marijuana Start: 03-15-2023 Refill Yesenia Rangel RN HOSPICE.BED RUBBER Work Phone: [facility] [place] Comment on above: Refill Request Start: 03-14-2023 End: 03-14-2023 [facility] Clayton Granados RN HOSPICE.BED RUBBER Work Phone: Psychiatry Comment on above: Encounter for long-t erm (current) use of medications (Primary Dx); ELIJAH (generalized anxiety disorder); Panic attacks; Bipolar affective disorder, current episode mixed, current episode severity unspecified (HCC) Start: 02-25-2023 ambulatory Clayton roman RN HOSPICE.BED RUBBER Work Phone: [facility] Start: 02-25-2023 Patient encounter procedure Clayton Granados RN HOSPICE.BED RUBBER Work Phone: Psychiatry Comment on above: Appointment Start: 01-05-2023 Refill Clayton roman RN HOSPICE.BED RUBBER Work Phone: Psychiatry Comment on above: Refill Request Start: 01-03-2023 Refill Clayton roman RN HOSPICE.BED RUBBER Work Phone: Psychiatry Comment on above: Refill Request Start: 12-31-2022 Refill Clayton roman RN HOSPICE.BED RUBBER Work Phone: Psychiatry Comment on above: Refill Request Start: 10-28-2022 End: 10-28-2022 [facility] Clayton Granados RN HOSPICE.BED RUBBER Work Phone: Psychiatry Comment on above: History of marijuana use (Primary Dx); Bipolar II disorder (HCC); Panic disorder without agoraphobia Start: 10-01-2022 Telephone encounter [facility] Surgery Comment on above: Cellular Phone Repairer - O ther (ECT) Start: 09-30-2022 End: 09-30-2022 ambulatory [facility] Facility:[facility] Start: 09-30-2022 End: 09-30-2022 Patient encounter procedure Esa [facility] RN HOSPICE.BED RUBBER Work Phone: Psychiatry Comment on above: Bipolar II disorder (HCC) (Primary Dx) Start: 09-27-2022 End: 09-27-2022 [facility] Clayton Granados RN HOSPICE.BED RUBBER Work Phone: Psychiatry Comment on above: Bipolar 2 disorder ( HCC) (Primary Dx); Panic disorder without agoraphobia; Marijuana use Start: 09-13-2022 End: 03-20-2023 ambulatory Clayton Granados RN HOSPICE.BED RUBBER Work Phone: Psychiatry Comment on above: NO SHOW (Primary Dx) Start: 09-13-2022 End: 09-13-2022 Telemedicine consultation with patient Clayton Omerguru FINNEGAN.BED RUBBER Work Phone: [facility] Start: 08-24-2022 Telephone encounter Ariella Cortes RN Psychiatry Comment on above: ECT Referral Start: 08-08-2022 Refill Fredrick goodwin DO Work Phone: [facility] [place] Comment on above: Refill Request Start: 07-19-2022 End: 07-19-2022 [facility] Clayton Granados RN HOSPICE.BED RUBBER Work Phone: Psychiatry Comment on above: Panic disorder witho ut agoraphobia (Primary Dx); Bipolar 2 disorder (HCC); Marijuana use Start: 07-05-2022 Refill Clayton Nationr u RN HOSPICE.BED RUBBER Work Phone: Psychiatry Comment on above: Refill Request Start: 07-01-2022 Refill Fredrick goodwin DO Work Phone: [facility] [place] Lead Comment on above: Refill Request Start: 05-31-2022 End: 05-31-2022 [facility] Clayton Granados RN HOSPICE.BED RUBBER Work Phone: Psychiatry Comment on above: Encounter for long-t erm (current) use of medications (Primary Dx); Panic disorder without agoraphobia; Bipolar 2 disorder (HCC) Start: 05-24-2022 Refill Clayton Martins u RN HOSPICE.BED RUBBER Work Phone: Psychiatry Comment on above: Refill Request Start: 05-10-2022 Refill Clayton Nationr u RN HOSPICE.BED RUBBER Work Phone: Psychiatry Comment on above: Refill Request Lexapro Start: 04-09-2022 End: 04-09-2022 ambulatory Clayton Granados RN HOSPICE.BED RUBBER Work Phone: Psychiatry Comment on above: NO SHOW (Primary Dx) Start: 04-09-2022 End: 04-09-2022 Telemedicine consultation with patient Clayton Lila Granados APRN.BED RUBBER Work Phone: [facility] Start: 03-29-2022 End: 03-29-2022 Patient encounter procedure Fredrick Boland DO Work Phone: [facility] Comment on above: Bilateral hand pain (Primary Dx); Elevated C-reactive protein (CRP); Bipolar affective disorder, current episode mixed, current episode severity unspecified (HCC) Start: 03-10-2022 Telephone encounter Fredrick Yosef walsh DO Work Phone: [facility] Comment on above: Patient Update Start: 03-04-2022 End: 03-04-2022 [facility] Clayton Granados APRN.[facility] Work Phone: Psychiatry Comment on above: Panic disorder witho ut agoraphobia (Primary Dx); Bipolar 2 disorder (HCC) Start: 02-11-2022 Refill Clayton roman APRN.BED RUBBER Work Phone: Psychiatry Comment on above: Refill Request Start: 02-02-2022 End: 02-02-2022 Patient encounter procedure Fredrick Boland DO Work Phone: [facility] Comment on above: Bilateral hand pain (Primary Dx); Foot pain, bilateral; Fatigue, unspecified type; Myalgia; Multiple joint pain; Iron deficiency Start: 01-27-2022 End: 01-27-2022 [facility] Clayton Granados APRN.BED RUBBER Work Phone: Psychiatry Comment on above: Bipolar 2 disorder ( HCC) (Primary Dx); Panic disorder without agoraphobia Start: 01-11-2022 ambulatory Clayton Nationr u RN HOSPICE.BED RUBBER Work Phone: Psychiatry Comment on above: Lab work Start: 12-24-2021 End: 12-24-2021 [facility] Clayton Granados APRN.BED RUBBER Work Phone: Psychiatry Comment on above: ELIJAH (generalized anx iety disorder) (Primary Dx); Bipolar 2 disorder (HCC); Panic disorder without agoraphobia Start: 12-22-2021 Refill Yesenia Zurawic k RN HOSPICE.BED RUBBER Work Phone: Family Medicine Lead Comment on above: Refill Request Start: 12-15-2021 ambulatory Claytonsammie Martins u RN HOSPICE.BED RUBBER Work Phone: Psychiatry Comment on above: Lexapro Start: 12-08-2021 Telephone encounter Clayton bro RN HOSPICE.BED RUBBER Work Phone: Psychiatry Comment on above: Patient Question Start: 11-26-2021 Refill Clayton roman RN HOSPICE.BED RUBBER Work Phone: Psychiatry Comment on above: Refill Request Start: 11-12-2021 End: 11-12-2021 [facility] Clayton Granados RN HOSPICE.BED RUBBER Work Phone: Psychiatry Comment on above: ELIJAH (generalized anx iety disorder) (Primary Dx); Bipolar 2 disorder (HCC) Start: 11-03-2021 Refill Yesenia Zurpromisec k RN HOSPICE.BED RUBBER Work Phone: [facility] [place] Comment on above: Refill Request Start: 10-27-2021 End: 10-27-2021 [facility] Clayton Granados RN HOSPICE.BED RUBBER Work Phone: Psychiatry Comment on above: ELIJAH (generalized anx iety disorder) (Primary Dx); Bipolar 2 disorder (HCC) Start: 10-23-2021 ambulatory Xochilt holland RN HOSPICE.BED RUBBER Work Phone: [facility] Start: 10-23-2021 End: 10-23-2021 Patient encounter procedure Xochilt Gaston RN HOSPICE.BED RUBBER Work Phone: Family [facility] [place] Comment on above: Appointment Bipolar affective di sorder, current episode mixed, current episode severity unspecified (HCC) (Primary Dx); Alcohol abuse; Depressive disorder; Panic attacks; ADD (attention deficit disorder) without hyperactivity; Legal intervention, bystander injured, initial encounter Start: 10-10-2021 ambulatory Room Emergency Radiolog y Comment on above: Radiology CT Start: 10-10-2021 Patient encounter procedure Room Emergency [facility] Start: 03-12-2021 End: 03-12-2021 Subsequent hospital visit by physician Xr [facility] Lead Work Phone: Radiology Comment on above: Acute pain of left k nee [M25.562] Start: 02-07-2018 Patient encounter procedure SANDRA NINO [facility] Start: 12-08-2017 End: 12-13-2017 Evaluation and management of inpatient Zakiya George Facility:[facility] Date Procedure Procedure Detail Performing Clinician Start: 01-10-2025 Adult depression scr eening assessment Hpn Strapping Machine Tender Work Phone: Start: 12-18-2024 Antibody screen FREDRICK BOLAND Comment on above: Order Comment: Speci men Type: BLOOD SPECIMENOrdering Facility: [facility] Address: [address] [place] [address] Performed By: #### T SCR ####CC MAIN BLOOD BANKCLIA [id number] [address] Start: 12-10-2024 Colonoscopy FREDRICK GAR RISON Start: 12-10-2024 Antibody screen FREDRICK BOLAND Comment on above: Order Comment: Speci men Type: BLOOD SPECIMENOrdering Facility: [facility] Address: [address] [place] [address] Performed By: #### T SCR ####CC MAIN BLOOD BANKCLIA [id number] [address] Start: 12-06-2024 Colonoscopy FREDRICK GAR RISON Start: 12-05-2024 Colonoscopy FREDRICK GAR RISON Start: 10-02-2024 Heparin assay Martín parisi DO Work Phone: Start: 10-02-2024 PATHOLOGIST INTERPRE TATION CBC/DIFF Martín Pendleton DO Work Phone: Start: 09-21-2024 Urinalysis MAGGIE HAMILTON Comment on above: Result Comment: URIN ALYSIS Performed By: #### [id number] #### [facility],[address] [place], [place] [id number] Start: 08-21-2024 H/O: surgery History of fasciotomy D danni Grigsby MD Work Phone: Start: 03-04-2022 Adult depression scr eening assessment Clayton Granados RN HOSPICE.BED RUBBER Work Phone: Start: 01-27-2022 Adult depression scr eening assessment Clayton Granados RN HOSPICE.BED RUBBER Work Phone: Start: 12-23-2021 Adult depression scr eening assessment Clayton Granados RN HOSPICE.BED RUBBER Work Phone: Start: 11-12-2021 Adult depression scr eening assessment Clayton Granados RN HOSPICE.BED RUBBER Work Phone: Start: 10-26-2021 Adult depression scr eening assessment Xochilt Lenzutzman RN HOSPICE.BED RUBBER Work Phone: Start: 08-27-2021 Adult depression scr eening assessment Room Emergency Start: 03-12-2021 Radiologic exam knee complete 4/more views Herbert Izquierdo MD Work Phone: H/O: surgery S/P exploratory laparotomy Intestinal Trans Coord Main Work Phone: H/O: surgery S/P exploratory laparotomy Kirit Devine MD Work Phone: Plan of Treatment Date Care Activity Detail Author Start: 05-21-2029 Urine microalbumin profile [facility] Start: 03-01-2026 Annual PCP Team Chronic Disease Visit Annual PCP Team Chronic Disease Visit [facility] Start: 01-28-2026 Annual PCP Team Chronic Disease Visit Annual PCP Team Chronic Disease Visit [facility] Start: 01-10-2026 Annual PCP Team Chronic Disease Visit Annual PCP Team Chronic Disease Visit [facility] Start: 01-10-2026 Depression Screening Depression Screening [facility] Start: 11-29-2025 Hepatitis B screening Urine Albumin:Creatinine Ratio [facility] Start: 09-08-2025 PAP TESTING PAP TESTING [facility] Start: 09-04-2025 Hemoglobin A1c measurement HbA1C [facility] Start: 09-02-2025 End: 09-02-2025 Patient encounter procedure 09/02/2025 12:30 PM EDT OT/PT/Speech Visit [facility] Physical Therapy [address] [id number] Vicente Griffin, PT [address] [place] [address] Disability assessment [facility] Comment on above: Disability assessment Start: 08-27-2025 Diabetic foot examination Diabetic Foot Exam [facility] Start: 08-20-2025 Hepatitis B surface antibody level LDL Cholesterol [facility] Start: 08-16-2025 Annual PCP Team Chronic Disease Visit Annual PCP Team Chronic Disease Visit [facility] Start: 08-07-2025 Hepatitis B Vaccine (1 of 3 - 19+ 3-dose series) Hepatitis B Vaccine (1 of 3 - 19+ 3-dose series) [facility] Comment on above: Postponed from 09/08/2002 (Declined at t his time) Start: 08-07-2025 HIV screening HIV Screening [facility] Comment on above: Postponed from 09/08/2001 (Declined at t his time) Start: 08-07-2025 Pneumococcal vaccination Pneumococcal Vaccine (1 of 2 - PCV) [facility] Comment on above: Postponed from 09/08/2002 (Declined at t his time) Start: 08-07-2025 Screening for malignant neoplasm of breast Mammogram Screening [facility] Comment on above: Postponed from 2023 (Declined at t his time) Start: 04-30-2025 End: 04-30-2025 Follow-up encounter 04/30/2025 2:30 PM [facility] Psych[facility]ry [address] [place] [address] Clayton Granados, RN HOSPICE.BED RUBBER [address] [place] [address] 2 month follow up/med check Psychiatry Comment on above: 2 month follow up/med check Start: 03-26-2025 End: 03-26-2025 Patient encounter procedure 03/26/2025 2:30 PM EDT Office Visit Vascular Surg Dept [address] [id number] Aleja Goncalves MD [address] [place] [address] Arterial occlusion [facility] Surg Dept Comment on above: Arterial occlusion Start: 03-26-2025 End: 03-26-2025 Patient encounter procedure Vascular Surgery Comment on above: Arterial occlusion Start: 03-06-2025 End: 06-05-2025 Hemoglobin A1c in Blood HEMOGLOBIN A1C Lab Routine Short bowel syndrome, 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 Hypokalemia Malnutrition of moderate degree (HCC) Expected: 03/06/2025 (Approximate), Expires: 06/05/2025 [facility] Work Phone: Comment on above: Expected: 03/06/2025 (Approximate), Expi res: 06/05/2025 Start: 03-06-2025 End: 06-05-2025 Potassium [Moles/volume] in Serum or Plasma POTASSIUM Lab Routine Hypokalemia Expected: 03/06/2025, Expires: 06/05/2025 [facility] Comment on above: Expected: 03/06/2025, Expires: Start: 03-04-2025 End: 03-04-2025 ambulatory 03/04/2025 2:00 PM EDT [facility] Psychiatry [address] [place] [address] Clayton Granados, RN HOSPICE.BED RUBBER [address] [place] [phone] Psychiatry Start: 02-28-2025 End: 02-28-2025 Patient encounter procedure 02/28/2025 1:00 PM EDT Office Visit Family [facility] [address] [place], [place] [id number] Ed Saxena, RN HOSPICE.BED RUBBER [address] [place], [place] [id number] 1 month f/up Family Medicine Lead Comment on above: 1 month f/up Start: 02-27-2025 End: 02-27-2025 Patient encounter procedure 02/27/2025 11:15 AM EDT Office Visit Vascular Medicine [address] [place] [address] Akua Grigsby MD [address] [place], [place] [id number] SMA thrombosis Vascular Medicine Comment on above: SMA thrombosis Start: 02-26-2025 End: 02-26-2025 ambulatory 02/26/2025 3:30 PM EDT [facility] Psychiatry [address] [place] [address] Clayton Granados, RN HOSPICE.BED RUBBER [address] [place] [address] Psychiatry Start: 02-15-2025 End: 02-15-2025 Follow-up encounter 02/15/2025 11:30 AM EDT [facility] Psychiatry [address] [place] [address] Clayton Granados, RN HOSPICE.BED RUBBER [address] [place] [address] Follow up appointment Psychiatry Comment on above: Follow up appointment Start: 02-04-2025 Hemoglobin A1c measurement HbA1C [facility] Start: 01-28-2025 End: 01-28-2025 Patient encounter procedure 01/28/2025 2:20 PM EDT Office Visit [facility] [address] [place] [address] Ed Saxena, RN HOSPICE.BED RUBBER [address] [place], [place] [id number] Blood thinner [facility] Comment on above: Blood thinner Start: 01-28-2025 End: 04-29-2025 CBC panel - Blood by Automated count [facility] Comment on above: Expected: 01/28/2025, Expires: Start: 01-28-2025 End: 04-29-2025 Comprehensive metabolic 2000 panel - Serum or Plasma [facility] Work Phone: Comment on above: Expected: 01/28/2025, Expires: Start: 01-28-2025 End: 04-29-2025 PT panel - Platelet poor plasma by Coagulation assay PROTHROMBIN TIME Lab Routine 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) Expected: 01/28/2025, Expires: 04/29/2025 [facility] Work Phone: Comment on above: Expected: 01/28/2025, Expires: Start: 01-22-2025 End: 01-22-2025 Patient encounter procedure [facility] Comment on above: 1 week f/up Start: 01-14-2025 End: 04-15-2025 Basic metabolic 2000 panel - Serum or Plasma BASIC METABOLIC PANEL Lab Routine Hypokalemia Expected: 01/14/2025, Expires: 04/15/2025 [facility] Comment on above: Expected: 01/14/2025, Expires: Start: 01-14-2025 End: 04-15-2025 PT panel - Platelet poor plasma by Coagulation assay PROTHROMBIN TIME Lab Routine Blood thinned due to long-term anticoagulant use Expected: 01/14/2025, Expires: 04/15/2025 [facility] Work Phone: Comment on above: Expected: 01/14/2025, Expires: Start: 01-11-2025 End: 01-11-2025 Follow-up encounter 01/11/2025 3:00 PM EDT [facility] Psychiatry [address] [place] [address] Clayton Granados, RN HOSPICE.BED RUBBER [address] [place] [phone] Follow up appointment Psychiatry Comment on above: Follow up appointment Start: 01-10-2025 End: 01-10-2025 Patient encounter procedure 01/10/2025 2:00 PM EDT Office Visit [facility] [address] [place] [address] Ed Saxena, RN HOSPICE.BED RUBBER [address] [place], [place] [id number] check up/pain (MyChart Request) Family Medicine [place] Comment on above: check up/pain (MyChart Request) Start: 01-08-2025 End: 01-08-2025 Patient encounter procedure Gastroenterology Comment on above: hpn page [id number] Start: 01-07-2025 End: 01-07-2025 Follow-up encounter 01/07/2025 2:00 PM EDT [facility] Psychiatry [address] [place] [phone] Clayton Granados, RN HOSPICE.BED RUBBER [address] [place] [address] Follow up appointment Psychiatry Comment on above: Follow up appointment Start: 01-03-2025 End: 01-03-2025 Patient encounter procedure 01/03/2025 10:40 AM EDT Office Visit [facility] [address] [place], [place] [id number] Ed Saxena, RN HOSPICE.BED RUBBER [address] [place], [place] [id number] check up/pain (MyChart Request) Family Medicine [place] Comment on above: check up/pain (MyChart Request) Start: 01-01-2025 End: 01-01-2025 Patient encounter procedure 01/01/2025 9:00 AM EDT Office Visit Podiatry [address] [address] Suzanne Duval PA-C [address] [place] [address] DOS 12/03/2024 Podiatry Comment on above: DOS [...] 11/15/2024 8:40 AM EDT Appointment Radiology [address] [place] [address] 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] Radiology Comment on above: Short bowel syndrome without colon in co ntinuity [K90.822] Start: 11-13-2024 End: 11-13-2024 Patient encounter procedure 11/13/2024 1:40 PM EDT Office Visit Family [facility] [place] [address] [place], [place] [phone] Fredrick Boland DO [address] [place] [address] Follow up [facility] [place] Comment on above: Follow up Start: 11-08-2024 End: 11-08-2024 Patient encounter procedure 11/08/2024 9:40 AM EDT Appointment Radiology [address] [place] [address] 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] Radiology Comment on above: Short bowel syndrome without colon in co ntinuity [K90.822] Start: 11-05-2024 End: 11-05-2024 Patient encounter procedure 11/05/2024 7:30 AM EDT Appointment Radiology [address] [address] 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] Radiology Comment on above: 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] Start: 10-31-2024 End: 10-31-2024 Follow-up encounter 10/31/2024 10:30 AM EDT Visit (SP) Office Hematology/Oncology [address] [place] [address] Martín Pendleton, DO [address] [place] [address] FOLLOW UP-DISCUSS LABS* Hematology/Oncology Comment on above: FOLLOW UP-DISCUSS LABS* Start: 10-29-2024 End: 10-29-2024 Nursing evaluation of patient and report 10/29/2024 1:00 PM EDT Nurse Visit [facility] [address] [place] [address] Ostomy Issues [facility] Comment on above: Ostomy Issues Start: 10-25-2024 End: 10-25-2024 Follow-up encounter 10/25/2024 9:30 AM EDT Visit (SP) Office Hematology/Oncology [address] [place] [address] Martín Pendleton, DO [address] [place] [address] FOLLOW UP-DISCUSS LABS* Hematology/Oncology Comment on above: FOLLOW UP-DISCUSS LABS* Start: 10-22-2024 End: 01-21-2025 25-hydroxyvitamin D3 [Mass/volume] in Serum or Plasma VITAMIN D 25 HYDROXY Lab STAT 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 Expected: 10/22/2024 (Approximate), Expires: 01/21/2025 [facility] Comment on above: Expected: 10/22/2024 (Approximate), Expi res: 01/21/2025 Start: 10-22-2024 End: 01-21-2025 Alpha tocopherol [Mass/volume] in Serum or Plasma VITAMIN E/TOCOPHEROL Lab STAT 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 Expected: 10/22/2024 (Approximate), Expires: 01/21/2025 [facility] Comment on above: Expected: 10/22/2024 (Approximate), Expi res: 01/21/2025 Start: 10-22-2024 End: 01-21-2025 AMINO ACIDS, PLASMA W/ CONSULTATION AMINO ACIDS, PLASMA W/ CONSULTATION Lab STAT 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 Expected: 10/22/2024 (Approximate), Expires: 01/21/2025 [facility] Comment on above: Expected: 10/22/2024 (Approximate), Expi res: 01/21/2025 Start: 10-22-2024 End: 01-21-2025 APC RESISTANCE APC RESISTANCE Lab STAT 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 Expected: 10/22/2024 (Approximate), Expires: 01/21/2025 [facility] Comment on above: Expected: 10/22/2024 (Approximate), Expi res: 01/21/2025 Start: 10-22-2024 End: 01-21-2025 aPTT in Platelet poor plasma by Coagulation assay ACTIVATED PARTIAL THROMBOPLASTIN TIME Lab STAT 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 Expected: 10/22/2024 (Approximate), Expires: 01/21/2025 [facility] Comment on above: Expected: 10/22/2024 (Approximate), Expi res: 01/21/2025 Start: 10-22-2024 End: 01-21-2025 Ascorbate [Mass/volume] in Serum or Plasma VITAMIN C Lab STAT 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 Expected: 10/22/2024 (Approximate), Expires: 01/21/2025 [facility] Comment on above: Expected: 10/22/2024 (Approximate), Expi res: 01/21/2025 Start: 10-22-2024 End: 01-21-2025 CBC W Auto Differential panel - Blood COMPLETE BLOOD COUNT AND DIFFERENTIAL Lab STAT 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 Expected: 10/22/2024 (Approximate), Expires: 01/21/2025 [facility] Comment on above: Expected: 10/22/2024 (Approximate), Expi res: 01/21/2025 Start: 10-22-2024 End: 01-21-2025 Cobalamin (Vitamin B12) [Mass/volume] in Serum or Plasma VITAMIN B12 Lab STAT 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 Expected: 10/22/2024 (Approximate), Expires: 01/21/2025 [facility] Comment on above: Expected: 10/22/2024 (Approximate), Expi res: 01/21/2025 Start: 10-22-2024 End: 01-21-2025 Comprehensive metabolic 2000 panel - Serum or Plasma COMPREHENSIVE METABOLIC PANEL Lab STAT 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 Expected: 10/22/2024 (Approximate), Expires: 01/21/2025 [facility] Comment on above: Expected: 10/22/2024 (Approximate), Expi res: 01/21/2025 Start: 10-22-2024 End: 01-21-2025 Ferritin [Mass/volume] in Serum or Plasma FERRITIN Lab STAT 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 Expected: 10/22/2024 (Approximate), Expires: 01/21/2025 [facility] Comment on above: Expected: 10/22/2024 (Approximate), Expi res: 01/21/2025 Start: 10-22-2024 End: 01-21-2025 Folate [Mass/volume] in Serum or Plasma FOLATE, SERUM Lab STAT 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 Expected: 10/22/2024 (Approximate), Expires: 01/21/2025 [facility] Comment on above: Expected: 10/22/2024 (Approximate), Expi res: 01/21/2025 Start: 10-22-2024 End: 01-21-2025 HYPERCOAG DIAG PNL HYPERCOAG DIAG PNL Lab STAT 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 Expected: 10/22/2024 (Approximate), Expires: 01/21/2025 [facility] Comment on above: Expected: 10/22/2024 (Approximate), Expi res: 01/21/2025 Start: 10-22-2024 End: 01-21-2025 Iron and Iron binding capacity panel - Serum or Plasma IRON AND TIBC Lab STAT 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 Expected: 10/22/2024 (Approximate), Expires: 01/21/2025 [facility] Comment on above: Expected: 10/22/2024 (Approximate), Expi res: 01/21/2025 Start: 10-22-2024 End: 01-21-2025 Magnesium [Mass/volume] in Serum or Plasma MAGNESIUM Lab STAT 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 Expected: 10/22/2024 (Approximate), Expires: 01/21/2025 [facility] Comment on above: Expected: 10/22/2024 (Approximate), Expi res: 01/21/2025 Start: 10-22-2024 End: 01-21-2025 Methylmalonate [Moles/volume] in Serum or Plasma METHYLMALONIC ACID Lab STAT 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 Expected: 10/22/2024 (Approximate), Expires: 01/21/2025 [facility] Comment on above: Expected: 10/22/2024 (Approximate), Expi res: 01/21/2025 Start: 10-22-2024 End: 01-21-2025 Niacin [Mass/volume] in Serum or Plasma VITAMIN B3/NIACIN Lab STAT 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 Expected: 10/22/2024 (Approximate), Expires: 01/21/2025 [facility] Comment on above: Expected: 10/22/2024 (Approximate), Expi res: 01/21/2025 Start: 10-22-2024 End: 01-21-2025 Parathyrin.intact [Mass/volume] in Serum or Plasma PTH INTACT Lab STAT 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 Expected: 10/22/2024 (Approximate), Expires: 01/21/2025 [facility] Comment on above: Expected: 10/22/2024 (Approximate), Expi res: 01/21/2025 Start: 10-22-2024 End: 01-21-2025 Phosphate [Mass/volume] in Serum or Plasma PHOSPHORUS INORGANIC Lab STAT 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 Expected: 10/22/2024 (Approximate), Expires: 01/21/2025 [facility] Comment on above: Expected: 10/22/2024 (Approximate), Expi res: 01/21/2025 Start: 10-22-2024 End: 01-21-2025 Prealbumin [Mass/volume] in Serum or Plasma PREALBUMIN Lab STAT 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 Expected: 10/22/2024 (Approximate), Expires: 01/21/2025 [facility] Comment on above: Expected: 10/22/2024 (Approximate), Expi res: 01/21/2025 Start: 10-22-2024 End: 01-21-2025 PT panel - Platelet poor plasma by Coagulation assay PROTHROMBIN TIME Lab STAT 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 Expected: 10/22/2024 (Approximate), Expires: 01/21/2025 [facility] Comment on above: Expected: 10/22/2024 (Approximate), Expi res: 01/21/2025 Start: 10-22-2024 End: 01-21-2025 Pyridoxine [Mass/volume] in Serum or Plasma VITAMIN B6/PYRIDOXIN Lab STAT 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 Expected: 10/22/2024 (Approximate), Expires: 01/21/2025 [facility] Comment on above: Expected: 10/22/2024 (Approximate), Expi res: 01/21/2025 Start: 10-22-2024 End: 01-21-2025 Retinol [Mass/volume] in Serum or Plasma VITAMIN A/RETINOL Lab STAT 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 Expected: 10/22/2024 (Approximate), Expires: 01/21/2025 [facility] Comment on above: Expected: 10/22/2024 (Approximate), Expi res: 01/21/2025 Start: 10-22-2024 End: 01-21-2025 Thyrotropin [Units/volume] in Serum or Plasma THYROID STIMULATING HORMONE Lab STAT 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 Expected: 10/22/2024 (Approximate), Expires: 01/21/2025 [facility] Comment on above: Expected: 10/22/2024 (Approximate), Expi res: 01/21/2025 Start: 10-22-2024 End: 01-21-2025 TOXICOLOGY PANEL BLD TOXICOLOGY PANEL BLD Lab STAT 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 Expected: 10/22/2024 (Approximate), Expires: 01/21/2025 [facility] Comment on above: Expected: 10/22/2024 (Approximate), Expi res: 01/21/2025 Start: 10-22-2024 End: 01-21-2025 TRACE ELEMENTS/TPN TRACE ELEMENTS/TPN Lab STAT 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 Expected: 10/22/2024 (Approximate), Expires: 01/21/2025 [facility] Comment on above: Expected: 10/22/2024 (Approximate), Expi res: 01/21/2025 Start: 10-22-2024 End: 01-21-2025 TYPE + SCREEN TYPE + SCREEN Blood Bank STAT 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 Expected: 10/22/2024 (Approximate), Expires: 01/21/2025 [facility] Work Phone: Comment on above: Expected: 10/22/2024 (Approximate), Expi res: 01/21/2025 Start: 10-22-2024 End: 10-22-2024 Patient encounter procedure 10/22/2024 11:00 AM EDT Office Visit Vascular Medicine [address] [place] [address] Akua Grigsby MD [address] [place] [address] 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 Comment on above: DX: SMA and leg arterial thrombosis Start: 10-17-2024 End: 10-17-2024 Patient encounter procedure General Surgery Comment on above: post op ACS Start: 10-11-2024 End: 01-10-2025 TOXICOLOGY SCREEN, ROUTINE URINE TOXICOLOGY SCREEN, ROUTINE URINE Lab Routine 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 Expected: 10/11/2024, Expires: 01/10/2025 [facility] Comment on above: Expected: 10/11/2024, Expires: Start: 10-10-2024 End: 10-10-2024 Patient encounter procedure 10/10/2024 12:15 PM EDT Office Visit General Surgery [address] [address] Peter Smith MD [address] [place] [address] post op ACS General Surgery Comment on above: post op ACS Start: 10-06-2024 End: 01-05-2025 CBC W Auto Differential panel - Blood COMPLETE BLOOD COUNT AND DIFFERENTIAL Lab Routine Anemia, unspecified type Expected: 10/06/2024, Expires: 01/05/2025 [facility] Comment on above: Expected: 10/06/2024, Expires: Start: 10-06-2024 End: 01-05-2025 Iron and Iron binding capacity panel - Serum or Plasma IRON AND TIBC Lab Routine Anemia, unspecified type Expected: 10/06/2024, Expires: 01/05/2025 [facility] Work Phone: Comment on above: Expected: 10/06/2024, Expires: Start: 10-02-2024 End: 10-02-2024 ambulatory 10/02/2024 3:00 PM EDT Visit (SP) Office Hematology/Oncology [address] [facility] [place], [place] [id number] Martín Pendleton DO [address] [facility] [place] [address] APARTMENT LOCATOR/DX: Hematology/Oncology Comment on above: APARTMENT LOCATOR/DX: Start: 10-02-2024 End: 01-01-2025 B 2 GPI IGG & IGM [facility] Comment on above: Expected: 10/02/2024, Expires: Start: 10-02-2024 End: 01-01-2025 Cardiolipin IgG and IgM panel - Serum [facility] Comment on above: Expected: 10/02/2024, Expires: Start: 10-02-2024 End: 01-01-2025 Ferritin [Mass/volume] in Serum or Plasma [facility] Comment on above: Expected: 10/02/2024, Expires: Start: 10-02-2024 End: 01-01-2025 Iron and Iron binding capacity panel - Serum or Plasma [facility] Comment on above: Expected: 10/02/2024, Expires: Start: 10-02-2024 End: 01-01-2025 MONOCLONAL PROTEIN, SERUM (BLOOD) [facility] Work Phone: Comment on above: Expected: 10/02/2024, Expires: Start: 10-02-2024 End: 01-01-2025 PROTEIN C FUNCT [facility] Comment on above: Expected: 10/02/2024, Expires: Start: 10-02-2024 End: 01-01-2025 PROTEIN ELECTROPHORESIS SERUM W/INTERP [facility] Comment on above: Expected: 10/02/2024, Expires: Start: 10-02-2024 End: 01-01-2025 PROTEIN S CLOTTABLE [facility] Comment on above: Expected: 10/02/2024 (Approximate), Expi res: 01/01/2025 Start: 10-02-2024 End: 01-01-2025 PROTEIN S IMMUNO [facility] Comment on above: Expected: 10/02/2024, Expires: Start: 10-02-2024 End: 01-01-2025 Transferrin receptor.soluble [Mass/volume] in Serum or Plasma [facility] Comment on above: Expected: 10/02/2024, Expires: Start: 10-01-2024 End: 10-01-2024 Patient encounter procedure 10/01/2024 11:00 AM EDT Office Visit Vascular Medicine [address] [id number] Akua Grigsby MD [address] [place] [address] 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 Comment on above: DX: SMA and leg arterial thrombosis Start: 09-19-2024 End: 09-19-2024 Patient encounter procedure Vascular Surgery Comment on above: Hospital FU DX:SMA occlusion Start: 09-10-2024 End: 09-10-2024 Follow-up encounter 09/10/2024 2:00 PM EDT [facility] Psychiatry [address] [place] [address] Clayton Granados, RN HOSPICE.BED RUBBER [address] [place] [address] Follow up Psychiatry Comment on above: Follow up Start: 08-20-2024 End: 08-20-2024 Laps abd prtm&omentum dx w/wo spec br/wa spx LAPAROSCOPY DIAGNOSTIC Aortic mural thrombus (HCC) 08/20/2024 12:41 PM EST [facility] CT & VAS Start: 08-20-2024 End: 08-20-2024 Slctv cathj 2nd order abdl pel/lxtr art brnch ANGIOGRAM MESENTERIC Aortic mural thrombus (HCC) 08/20/2024 12:[address] [facility] [address] & VAS Start: 06-25-2024 End: 06-25-2024 Patient encounter procedure 06/25/2024 11:00 AM EST Office Visit [facility] [address] [place], [place] [address] Yesenia Rangel, RN HOSPICE.BED RUBBER [address] [place], [place] [address] physical Family [facility] Comment on above: physical Start: 05-18-2024 End: 05-18-2024 ambulatory 05/18/2024 2:00 PM EST [facility] Psychiatry [address] [place] [address] Clayton Granados, RN HOSPICE.BED RUBBER [address] [place] [address] med check Psychiatry Comment on above: med check Start: 05-18-2024 End: 08-17-2024 BENZO CONFIRM, URINE BENZO CONFIRM, URINE Lab Routine Encounter for long-term (current) use of medications Expected: 05/18/2024, Expires: 08/17/2024 [facility] Comment on above: Expected: 05/18/2024, Expires: Start: 05-18-2024 End: 08-17-2024 CBC W Auto Differential panel - Blood COMPLETE BLOOD COUNT AND DIFFERENTIAL Lab Routine Encounter for long-term (current) use of medications Expected: 05/18/2024, Expires: 08/17/2024 [facility] Comment on above: Expected: 05/18/2024, Expires: Start: 05-18-2024 End: 08-17-2024 Comprehensive metabolic 2000 panel - Serum or Plasma COMPREHENSIVE METABOLIC PANEL Lab Routine Encounter for long-term (current) use of medications Expected: 05/18/2024, Expires: 08/17/2024 [facility] Work Phone: Comment on above: Expected: 05/18/2024, Expires: Start: 05-18-2024 End: 08-17-2024 Hemoglobin A1c in Blood HEMOGLOBIN A1C Lab Routine Encounter for long-term (current) use of medications Expected: 05/18/2024, Expires: 08/17/2024 [facility] Comment on above: Expected: 05/18/2024, Expires: Start: 05-18-2024 End: 08-17-2024 Lipid 1996 panel - Serum or Plasma LIPID PANEL BASIC Lab Routine Encounter for long-term (current) use of medications Expected: 05/18/2024, Expires: 08/17/2024 [facility] Comment on above: Expected: 05/18/2024, Expires: Start: 05-18-2024 End: 08-17-2024 PHOSPHATIDYLETHANOL (PETH) PHOSPHATIDYLETHANOL (PETH) Lab Routine Encounter for long-term (current) use of medications Expected: 05/18/2024, Expires: 08/17/2024 [facility] Comment on above: Expected: 05/18/2024, Expires: Start: 05-18-2024 End: 08-17-2024 Thyrotropin [Units/volume] in Serum or Plasma THYROID STIMULATING HORMONE Lab Routine Encounter for long-term (current) use of medications Expected: 05/18/2024, Expires: 08/17/2024 [facility] Comment on above: Expected: 05/18/2024, Expires: Start: 05-18-2024 End: 08-17-2024 TOXICOLOGY SCREEN, ROUTINE URINE TOXICOLOGY SCREEN, ROUTINE URINE Lab Routine Encounter for long-term (current) use of medications Expected: 05/18/2024, Expires: 08/17/2024 [facility] Comment on above: Expected: 05/18/2024, Expires: Start: 03-03-2024 End: 03-03-2024 Follow-up encounter 03/03/2024 1:00 PM EDT [facility] [address] [place] [phone] Clayton Granados, RN HOSPICE.[employer]ED [employer]ER [address] [place] [phone] Follow up Psychiatry Comment on above: Follow up Start: 02-26-2024 Covid-19 Vaccine ( season) Covid-19 Vaccine ( season) [facility] Start: 02-26-2024 Covid-19 Vaccine () Covid-19 Vaccine () [facility] Start: 02-26-2024 Influenza vaccination [facility] Start: 01-19-2024 End: 01-19-2024 Follow-up encounter 01/19/2024 9:00 AM EDT [facility] [address] [address] Clayton Granados, RN HOSPICE.[employer]ED RU[employer]ER [address] [place] [phone] Follow up Psychiatry Comment on above: Follow up Start: 12-30-2023 End: 12-30-2023 Follow-up encounter 12/30/2023 2:00 PM EDT [facility] [address] [phone] Clayton Granados, RN HOSPICE.[employer]ER [address] [phone] FOLLOW UP Psychiatry Comment on above: FOLLOW UP Start: 10-28-2023 End: 10-28-2023 Patient encounter procedure 10/28/2023 8:20 AM EDT Office Visit Family Medicine Lead [address] [facility] [place], [place] [id number] Fredrick Boland DO [address] [place] [address] missing periods [facility] Comment on above: missing periods Start: 2023 Screening for malignant neoplasm of breast Mammogram Screening [facility] Start: 09-08-2023 End: 12-08-2023 TOX SCREEN ROUT UR TOX SCREEN ROUT UR Lab Routine Encounter for long-term (current) use of medications History of marijuana use Expected: 09/08/2023, Expires: 12/08/2023 [facility] Work Phone: Comment on above: Expected: 09/08/2023, Expires: Start: 09-02-2023 End: 12-02-2023 Comprehensive metabolic 2000 panel - Serum or Plasma COMP METABOLIC PANEL Lab Routine Encounter for long-term (current) use of medications Expected: 09/02/2023, Expires: 12/02/2023 [facility] Work Phone: Comment on above: Expected: 09/02/2023, Expires: Start: 09-02-2023 End: 12-02-2023 Hemoglobin A1c in Blood HGB A1C Lab Routine Encounter for long-term (current) use of medications Expected: 09/02/2023, Expires: 12/02/2023 [facility] Work Phone: Comment on above: Expected: 09/02/2023, Expires: Start: 09-02-2023 End: 12-02-2023 Lipid 1996 panel - Serum or Plasma LIPID PANEL BASIC Lab Routine Encounter for long-term (current) use of medications Expected: 09/02/2023, Expires: 12/02/2023 [facility] Work Phone: Comment on above: Expected: 09/02/2023, Expires: Start: 07-12-2023 HPV TESTING HPV TESTING [facility] Start: 07-12-2023 PAP TESTING PAP TESTING [facility] Start: 07-12-2023 Screening for malignant neoplasm of cervix [facility] Start: 06-27-2023 Depression Assessment Depression Assessment [facility] Start: 05-16-2023 End: 08-15-2023 Comprehensive metabolic 2000 panel - Serum or Plasma COMP METABOLIC PANEL Lab Routine Encounter for long-term (current) use of medications Expected: 05/16/2023, Expires: 08/15/2023 [facility] Work Phone: Comment on above: Expected: 05/16/2023, Expires: 4 Start: 05-16-2023 End: 08-15-2023 Hemoglobin A1c in Blood HGB A1C Lab Routine Encounter for long-term (current) use of medications Expected: 05/16/2023, Expires: 08/15/2023 [facility] Work Phone: Comment on above: Expected: 05/16/2023, Expires: 4 Start: 05-16-2023 End: 08-15-2023 Lipid 1996 panel - Serum or Plasma LIPID PANEL BASIC Lab Routine Encounter for long-term (current) use of medications Expected: 05/16/2023, Expires: 08/15/2023 [facility] Work Phone: Comment on above: Expected: 05/16/2023, Expires: 4 Start: 03-04-2023 Adult depression screening assessment DEPRESSION SCREENING [facility] Start: 02-25-2023 Covid-19 Vaccine ( season) Covid-19 Vaccine () [facility] Start: 02-25-2023 Influenza vaccination [facility] Start: 01-27-2023 Adult depression screening assessment DEPRESSION SCREENING [facility] Start: 12-24-2022 Influenza vaccination INFLUENZA (#1) [facility] Comment on above: Postponed from 02/25/2022 (Declined at t his time) Start: 12-23-2022 Adult depression screening assessment DEPRESSION SCREENING [facility] Start: 11-12-2022 Adult depression screening assessment DEPRESSION SCREENING [facility] Start: 10-28-2022 End: 12-28-2022 TOX SCREEN ROUT UR TOX SCREEN ROUT UR Lab Routine History of marijuana use Expected: 10/28/2022, Expires: 12/28/2022 [facility] Work Phone: Comment on above: Expected: 10/28/2022, Expires: 3 Start: 10-26-2022 Adult depression screening assessment DEPRESSION SCREENING [facility] Start: 09-30-2022 End: 11-30-2022 Basic metabolic 2000 panel - Serum or Plasma [facility] Work Phone: Comment on above: Expected: 09/30/2022, Expires: 3 Start: 09-30-2022 End: 11-30-2022 Choriogonadotropin ( test) [Presence] in Urine [facility] Work Phone: Comment on above: Expected: 09/30/2022, Expires: 3 Start: 09-30-2022 End: 11-30-2022 ETHYL GLUCURONIDE UR SCR [facility] Work Phone: Comment on above: Expected: 09/30/2022, Expires: 3 Start: 09-30-2022 End: 11-30-2022 TOX SCREEN ROUT UR [facility] Work Phone: Comment on above: Expected: 09/30/2022, Expires: 3 Start: 08-27-2022 Adult depression screening assessment DEPRESSION SCREENING [facility] Start: 07-20-2022 COVID-19 VACCINE (#1) COVID-19 VACCINE (#1) [facility] Comment on above: Postponed from 09/08/1988 (Declined at t his time) Postponed from 03/11 (Declined at this time) Start: 07-20-2022 COVID-19 VACCINE (1) COVID-19 VACCINE (1) [facility] Comment on above: Postponed from 09/08/1988 (Declined at t his time) Start: 07-05-2022 End: 09-04-2022 TOX SCREEN ROUT UR TOX SCREEN ROUT UR Lab Routine Marijuana use Expected: 07/05/2022, Expires: 09/04/2022 [facility] Work Phone: Comment on above: Expected: 07/05/2022, Expires: 3 Start: 06-27-2022 DEPRESSION ASSESSMENT DEPRESSION ASSESSMENT [facility] Start: 02-25-2022 Influenza vaccination [facility] Start: 02-02-2022 End: 04-04-2022 25-hydroxyvitamin D3 [Mass/volume] in Serum or Plasma VITAMIN D 25 HYDROXY Lab Routine Fatigue, unspecified type Myalgia Expected: 02/02/2022, Expires: 04/04/2022 [facility] Work Phone: Comment on above: Expected: 02/02/2022, Expires: 2 Start: 02-02-2022 End: 04-04-2022 C reactive protein [Mass/volume] in Serum or Plasma C-REACTIVE PROTEIN (CRP) Lab Routine Bilateral hand pain Foot pain, bilateral Expected: 02/02/2022, Expires: 04/04/2022 [facility] Work Phone: Comment on above: Expected: 02/02/2022, Expires: 2 Start: 02-02-2022 End: 04-04-2022 CBC W Auto Differential panel - Blood CBC + DIFF Lab Routine Fatigue, unspecified type Myalgia Expected: 02/02/2022, Expires: 04/04/2022 [facility] Work Phone: Comment on above: Expected: 02/02/2022, Expires: 2 Start: 02-02-2022 End: 04-04-2022 Cobalamin (Vitamin B12) [Mass/volume] in Serum or Plasma VITAMIN B12 BLOOD Lab Routine Fatigue, unspecified type Myalgia Expected: 02/02/2022, Expires: 04/04/2022 [facility] Work Phone: Comment on above: Expected: 02/02/2022, Expires: 2 Start: 02-02-2022 End: 04-04-2022 Comprehensive metabolic 2000 panel - Serum or Plasma COMP METABOLIC PANEL Lab Routine Fatigue, unspecified type Myalgia Expected: 02/02/2022, Expires: 04/04/2022 [facility] Work Phone: Comment on above: Expected: 02/02/2022, Expires: 2 Start: 02-02-2022 End: 04-04-2022 Cyclic citrullinated peptide IgG Ab [Units/volume] in Serum or Plasma CCP ANTIBODY IGG Lab Routine Bilateral hand pain Foot pain, bilateral Expected: 02/02/2022, Expires: 04/04/2022 [facility] Work Phone: Comment on above: Expected: 02/02/2022, Expires: 2 Start: 02-02-2022 End: 04-04-2022 Erythrocyte sedimentation rate SED RATE WESTERGREN Lab Routine Bilateral hand pain Foot pain, bilateral Expected: 02/02/2022, Expires: 04/04/2022 [facility] Work Phone: Comment on above: Expected: 02/02/2022, Expires: 2 Start: 02-02-2022 End: 04-04-2022 Extractable nuclear Ab panel - Serum ANTI ABIGAIL ID Lab Routine Bilateral hand pain Foot pain, bilateral Expected: 02/02/2022, Expires: 04/04/2022 [facility] Work Phone: Comment on above: Expected: 02/02/2022, Expires: 2 Start: 02-02-2022 End: 04-04-2022 Ferritin [Mass/volume] in Serum or Plasma FERRITIN BLD Lab Routine Myalgia Iron deficiency Expected: 02/02/2022, Expires: 04/04/2022 [facility] Work Phone: Comment on above: Expected: 02/02/2022, Expires: 2 Start: 02-02-2022 End: 04-04-2022 Iron and Iron binding capacity panel - Serum or Plasma IRON + TIBC Lab Routine Myalgia Iron deficiency Expected: 02/02/2022, Expires: 04/04/2022 [facility] Work Phone: Comment on above: Expected: 02/02/2022, Expires: 2 Start: 02-02-2022 End: 04-04-2022 Magnesium [Mass/volume] in Serum or Plasma MAGNESIUM BLD Lab Routine Bilateral hand pain Foot pain, bilateral Expected: 02/02/2022, Expires: 04/04/2022 [facility] Work Phone: Comment on above: Expected: 02/02/2022, Expires: 2 Start: 02-02-2022 End: 04-04-2022 Nuclear Ab [Presence] in Serum by Immunoassay ROBERTA BLOOD Lab Routine Bilateral hand pain Foot pain, bilateral Expected: 02/02/2022, Expires: 04/04/2022 [facility] Work Phone: Comment on above: Expected: 02/02/2022, Expires: 2 Start: 02-02-2022 End: 04-04-2022 Rheumatoid factor [Units/volume] in Serum or Plasma RHEUMATOID FACTOR BL Lab Routine Bilateral hand pain Foot pain, bilateral Expected: 02/02/2022, Expires: 04/04/2022 [facility] Work Phone: Comment on above: Expected: 02/02/2022, Expires: 2 Start: 01-11-2022 End: 03-13-2022 TOX SCREEN ROUT UR TOX SCREEN ROUT UR Lab Routine ELIJAH (generalized anxiety disorder) Expected: 01/11/2022, Expires: 03/13/2022 [facility] Work Phone: Comment on above: Expected: 01/11/2022, Expires: 2 Start: 10-27-2021 End: 12-27-2021 Comprehensive metabolic 2000 panel - Serum or Plasma COMP METABOLIC PANEL Lab Routine ELIJAH (generalized anxiety disorder) Bipolar 2 disorder (HCC) Expected: 10/27/2021, Expires: 12/27/2021 [facility] Work Phone: Comment on above: Expected: 10/27/2021, Expires: 2 Start: 10-27-2021 End: 12-27-2021 TOX SCREEN ROUT UR TOX SCREEN ROUT UR Lab Routine ELIJAH (generalized anxiety disorder) Bipolar 2 disorder (HCC) Expected: 10/27/2021, Expires: 12/27/2021 [facility] Work Phone: Comment on above: Expected: 10/27/2021, Expires: 2 Start: 09-08-2010 HPV Vaccine (1 - 3-dose SCDM series) HPV Vaccine (1 - 3-dose SCDM series) [facility] Start: 09-08-2002 Hepatitis B Vaccine (1 of 3 - 19+ 3-dose series) Hepatitis B Vaccine (1 of 3 - 19+ 3-dose series) [facility] Start: 09-08-2002 ONE PNEUMOVAX PRIOR TO AGE 65 ONE PNEUMOVAX PRIOR TO AGE 65 [facility] Start: 09-08-2002 Pneumococcal vaccination Pneumococcal Vaccine (1 of 2 - PCV) [facility] Start: 09-08-2001 Depression Screening Depression Screening [facility] Start: 09-08-2001 HEPATITIS C SCREENING HEPATITIS C SCREENING [facility] Start: 09-08-2001 Hepatitis C screening Hepatitis C Screening [facility] Start: 09-08-2001 HIV SCREENING HIV SCREENING [facility] Start: 09-08-2001 HIV screening HIV Screening [facility] Start: 09-08-1993 Glaucoma screening Dilated Retinal Exam [facility] Start: 09-08-1993 Hepatitis B screening Urine Albumin:Creatinine Ratio [facility] Start: 09-08-1989 PNEUMOCOCCAL (1 - PCV) PNEUMOCOCCAL (1 - PCV) [facility] Start: 09-08-1989 [facility] Start: 03-11-1984 COVID-19 VACCINE (#1) COVID-19 VACCINE (#1) [facility] Start: 1983 HEPATITIS B (1 of 3 - 3-dose series) HEPATITIS B (1 of 3 - 3-dose series) [facility] Start: 1983 Hepatitis B Vaccine (1 of 3 - 3-dose series) Hepatitis B Vaccine (1 of 3 - 3-dose series) [facility] BETA 2 GLYCOPROTEIN, IGG BETA 2 GLYCOPROTEIN, IGG Lab Routine Antiphospholipid antibody syndrome (HCC) Superior mesenteric artery thrombosis (HCC) 10/02/2024 3:47 PM EDT [facility] BETA 2 GLYCOPROTEIN, IGM BETA 2 GLYCOPROTEIN, IGM Lab Routine Antiphospholipid antibody syndrome (HCC) Superior mesenteric artery thrombosis (HCC) 10/02/2024 3:47 PM EDT [facility] Cardiolipin IgA Ab [Units/volume] in Serum by Immunoassay CARDIOLIPIN IGA ABS Lab Routine Antiphospholipid antibody syndrome (HCC) Superior mesenteric artery thrombosis (HCC) 10/02/2024 3:47 PM EDT [facility] CARDIOLIPIN IGG ABS CARDIOLIPIN IGG ABS Lab Routine Antiphospholipid antibody syndrome (HCC) Superior mesenteric artery thrombosis (HCC) 10/02/2024 3:47 PM EDT [facility] CARDIOLIPIN IGM ABS CARDIOLIPIN IGM ABS Lab Routine Antiphospholipid antibody syndrome (HCC) Superior mesenteric artery thrombosis (HCC) 10/02/2024 3:47 PM EDT [facility] End: 11-10-2025 CT Chest W contrast IV CT CHEST W IVCON Radiology Routine Disorder of artery or arteriole 1 Occurrences starting 10/11/2024 until 11/10/2025 [facility] Comment on above: 1 Occurrences starting 10/11/2024 until 11/10/2025 End: 12-24-2022 ECG COMPLETE ECG COMPLETE ECG Routine ELIJAH (generalized anxiety disorder) 1 Occurrences starting 12/24/2021 until 12/24/2022 [facility] Work Phone: Comment on above: 1 Occurrences starting 12/24/2021 until 12/24/2022 End: 03-14-2024 ECG COMPLETE ECG COMPLETE ECG Routine Encounter for long-term (current) use of medications 1 Occurrences starting 03/14/2023 until 03/14/2024 [facility] Work Phone: Comment on above: 1 Occurrences starting 03/14/2023 until 03/14/2024 End: 05-18-2025 ECG COMPLETE ECG COMPLETE ECG Routine Encounter for long-term (current) use of medications 1 Occurrences starting 05/18/2024 until 05/18/2025 [facility] Comment on above: 1 Occurrences starting 05/18/2024 until 05/18/2025 ECG COMPLETE ECG COMPLETE ECG Routine Medication management Ordered: 08/07/2024 [facility] Work Phone: Comment on above: Ordered: 08/07/2024 End: 10-11-2025 EGD DIAGNOSTIC EGD DIAGNOSTIC Endoscopy Routine 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 1 Occurrences starting 10/11/2024 until 10/11/2025 [facility] Comment on above: 1 Occurrences starting 10/11/2024 until 10/11/2025 End: 10-11-2025 Flexible sigmoidoscopy study COLONOSCOPY DIAGNOSTIC Endoscopy Routine 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 1 Occurrences starting 10/11/2024 until 10/11/2025 [facility] Comment on above: 1 Occurrences starting 10/11/2024 until 10/11/2025 IMMUNOFIXATION SCREE N, SERUM IMMUNOFIXATION SCREEN, SERUM Lab Routine Antiphospholipid antibody syndrome (HCC) Superior mesenteric artery thrombosis (HCC) 10/02/2024 3:47 PM EDT [facility] KAPPA/JULIAN,FREE,SER KAPPA/JULIAN,F REE,SER Lab Routine Antiphospholipid antibody syndrome (HCC) Superior mesenteric artery thrombosis (HCC) 10/02/2024 3:47 PM EDT [facility] End: 11-17-2024 MG Breast Screening MILO SCREENING Radiology Routine Encounter for screening mammogram for breast cancer 1 Occurrences starting 10/19/2023 until 11/17/2024 [facility] Work Phone: Comment on above: 1 Occurrences starting 10/19/2023 until 11/17/2024 Protein [Mass/volume ] in Serum or Plasma PROTEIN, TOTAL Lab Routine Antiphospholipid antibody syndrome (HCC) Superior mesenteric artery thrombosis (HCC) 10/02/2024 3:47 PM EDT [facility] PROTEIN ELECTROPHORE SIS SERUM (P) PROTEIN ELECTROPHORESIS SERUM (P) Lab Routine Antiphospholipid antibody syndrome (HCC) Superior mesenteric artery thrombosis (HCC) 10/02/2024 3:47 PM EDT [facility] End: 03-11-2026 PT panel - Platelet poor plasma by Coagulation assay PROTHROMBIN TIME Lab Routine Deep vein thrombosis (DVT) of proximal lower extremity, unspecified chronicity, unspecified laterality (HCC) 2x per week for 99 Occurrences starting 03/11/2025 until 03/11/2026 [facility] Work Phone: Comment on above: 2x per week for 99 Occurrences starting 03/11/2025 until 03/11/2026 End: 11-10-2025 RF Colon Views W barium contrast ID XR COLON SINGLE CONTRAST Radiology Routine 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 1 Occurrences starting 10/11/2024 until 11/10/2025 [facility] Comment on above: 1 Occurrences starting 10/11/2024 until 11/10/2025 End: 11-10-2025 RF Gastrointestinal tract upper Views W barium contrast PO XR UPPER GI SINGLE CONTRAST Radiology Routine 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 1 Occurrences starting 10/11/2024 until 11/10/2025 [facility] Comment on above: 1 Occurrences starting 10/11/2024 until 11/10/2025 End: 09-11-2025 US Lower extremity artery - bilateral [facility] Work Phone: Comment on above: 1 Occurrences starting 09/11/2024 until 09/11/2025 End: 09-19-2025 US Lower extremity artery - bilateral [facility] Work Phone: Comment on above: 1 Occurrences starting 09/19/2024 until 09/19/2025 End: 03-04-2023 XR FOOT GENERAL 3V AP/LAT/OBL BILATERAL XR FOOT GENERAL 3V AP/LAT/OBL BILATERAL Radiology Routine Foot pain, bilateral 1 Occurrences starting 02/02/2022 until 03/04/2023 [facility] Work Phone: Comment on above: 1 Occurrences starting 02/02/2022 until 03/04/2023 End: 11-10-2025 XR GI SMALL BOWEL FOLLOW-THRU XR GI SMALL BOWEL FOLLOW-THRU Radiology Routine 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 1 Occurrences starting 10/11/2024 until 11/10/2025 [facility] Comment on above: 1 Occurrences starting 10/11/2024 until 11/10/2025 End: 03-04-2023 XR HAND GENERAL 3V PA/LAT/OBL BILATERAL XR HAND GENERAL 3V PA/LAT/OBL BILATERAL Radiology Routine Bilateral hand pain 1 Occurrences starting 02/02/2022 until 03/04/2023 [facility] Work Phone: Comment on above: 1 Occurrences starting 02/02/2022 until 03/04/2023 [facility] Immunizations Immunization Date Immunization Notes Care Provider Fa amy 05-21-2019 tetanus toxoid, redu leilani diphtheria toxoid, and acellular pertussis vaccine, adsorbed Room Emergency [facility] 07-12-2018 influenza virus vacc ine, unspecified formulation Clayton Granados APRN.CNP Work Phone: [facility] Payers Date Payer Category Payer Self-pay 2022 Unknown [id number] 2014 Medicaid [employer] [employer] [employer] [id number] 2014-Present [phone] [address] [place] [address] Medicaid [id number] 2014 Medicaid [id number]. [id number] 1983 Unknown [id number] 2.16.840.1.945229.3.579.2.66 8 1983 Unknown [id number] 2.16.840.1.538595.3.579.2.65 1 1983 Unknown [id number] 2.16.840.1.860984.3.579.2.65 1 1983 Unknown [id number] 2.16.840.1.610975.3.579.2.65 1 1983 Unknown [id number] 2.16.840.1.656714.3.579.2.65 1 1983 Unknown [id number] 2.16.840.1.552686.3.579.2.65 1 1983 Unknown [id number] 2.16.840.1.434683.3.579.2.62 7 Unknown [id number] 2.16.840.1.660702.3.579.2.46 2 Unknown [id number] 2.16.840.1.660552.3.579.2.46 2 Unknown [id number] 2.16.840.1.629710.3.579.2.46 2 Unknown [id number] 2.16.840.1.292690.3.579.2.46 2 Unknown [id number] 2.16.840.1.256411.3.579.2.46 2 Unknown [id number] 2.16.840.1.728557.3.579.2.46 2 Unknown [id number] 2.16.840.1.745264.3.579.2.46 2 Unknown [id number] 2.16.840.1.060078.3.579.2.46 2 Unknown [id number] 2.16.840.1.611392.3.579.2.46 2 Unknown [id number] 2.16.840.1.975179.3.579.2.46 2 Unknown [id number] 2.16.840.1.887492.3.579.2.46 2 Unknown [id number] 2.16.840.1.627193.3.579.2.46 2 Unknown [id number] 2.16.840.1.087597.3.579.2.46 2 Unknown [id number] 2.16.840.1.371124.3.579.2.46 2 Unknown [id number] 2.16.840.1.398110.3.579.2.46 2 Unknown [id number] 2.16.840.1.231717.3.579.2.46 2 Unknown [id number] 2.16.840.1.907860.3.579.2.46 2 Unknown [id number] 2.16.840.1.282646.3.579.2.46 2 Unknown [id number] 2.16.840.1.957204.3.579.2.46 2 Unknown [id number] 2.16.840.1.670836.3.579.2.46 2 Unknown [id number] 2.16.840.1.934749.3.579.2.46 2 Unknown [id number] 2.16.840.1.847827.3.579.2.46 2 Unknown [id number] 2.16.840.1.890801.3.579.2.46 2 Unknown [id number] 2.16.840.1.212567.3.579.2.46 2 Unknown [id number] 2.16.840.1.926244.3.579.2.46 2 Unknown [id number] 2.16.840.1.861663.3.579.2.46 2 Unknown [id number] 2.16.840.1.517171.3.579.2.46 2 Unknown [id number] 2.16.840.1.765668.3.579.2.46 2 Unknown [id number] 2.16.840.1.537171.3.579.2.46 2 Unknown [id number] 2.16.840.1.559911.3.579.2.46 2 Unknown [id number] 2.16.840.1.851497.3.579.2.46 2 Unknown [id number] 2.16.840.1.788442.3.579.2.46 2 Unknown [id number] 2.16.840.1.427066.3.579.2.46 2 Unknown [id number] 2.16.840.1.401525.3.579.2.46 2 Unknown [id number] 2.16.840.1.523087.3.579.2.46 2 Unknown [id number] 2.16.840.1.064920.3.579.2.46 2 Unknown [id number] 2.16.840.1.162619.3.579.2.46 2 Unknown [id number] 2.16.840.1.509381.3.579.2.46 2 Unknown [id number] 2.16.840.1.233424.3.579.2.46 2 Unknown [id number] 2.16.840.1.192780.3.579.2.46 2 Worker's Compensation Social History Date Type Detail Facility Start: 07-18-2019 End: 09-19-2024 Tobacco smoking status CTIS Smokes tobacco daily [facility] Work Phone: End: 04-13-2015 History of tobacco use Smoker [facility] Work Phone: Start: 07-18-2019 End: 10-02-2024 Tobacco use and exposure Smokeless tobacco non-user [facility] Work Phone: Start: 10-10-2021 End: 08-20-2024 Alcohol intake Current drinker of alcohol (finding) [facility] Start: 07-18-2021 History SDOH Alcohol Frequency 4 [facility] Start: 07-18-2021 End: 07-13-2022 History SDOH Alcohol Std Drinks 2 [facility] Start: 07-18-2021 End: 07-13-2022 History SDOH Social Connections Judaism 1 [facility] Start: 07-18-2021 End: 07-13-2022 History SDOH Social Connections Living 7 [facility] Start: 07-18-2021 End: 07-13-2022 History SDOH Stress 5 [facility] Start: 11-07-2019 Education 21 [facility] Start: 1985 Sex Assigned At Not on file [facility] Start: 09-30-2021 End: 10-10-2021 Exposure to SARS-CoV-2 (event) Yes [facility] Start: 02-10-2021 End: 03-29-2022 Exposure to SARS-CoV-2 (event) Not sure [facility] End: 04-13-2015 History of tobacco use Cigarette Smoker [facility] Work Phone: Start: 07-13-2022 History SDOH Alcohol Std Drinks 0 [facility] Start: 07-13-2022 History SDOH Physica l Activity MPS 3 [facility] Start: 07-12-2022 End: 01-28-2025 History of Social function [facility] Start: 07-12-2022 End: 01-28-2025 Social connection and isolation panel [facility] Do you belong to any clubs or organizations such as uatsdin groups, unions, fraternal or athletic groups, or school groups? No [facility] Are you now , , , , never or living with a partner? Never [facility] How often to you hav e a drink containing alcohol? Never [facility] Start: 05-28-[address] inks containing alcohol do you have on a typical day? Patient does not drink [facility] How hard is it for y ou to pay for the very basics like food, housing, medical care, and heating Very hard [facility] Do you feel stress - tense, restless, nervous, or anxious, or unable to sleep at night because your mind is troubled all the time - these days [OSQ] Very much [facility] (I/We) worried wheth er (my/our) food would run out before (I/we) got money to buy more. Often true [facility] Are you now , , , , never or living with a partner? Living with partner [facility] How often to you hav e a drink containing alcohol? 2-4 times a month [facility] How many standard dr inks containing alcohol do you have on a typical day? 3 or 4 [facility] How often do you hav e 6 or more drinks on 1 occasion? Less than monthly [facility] How hard is it for y ou to pay for the very basics like food, housing, medical care, and heating Somewhat hard [facility] (I/We) worried wheth er (my/our) food would run out before (I/we) got money to buy more. Never true [facility] (I/We) worried wheth er (my/our) food would run out before (I/we) got money to buy more. Sometimes true [facility] Start: 09-19-2024 Tobacco Comment Pateint only u ses the Vape She doesnt smoke nicotine [facility] Start: 10-02-2024 Tobacco smoking stat us NHIS Ex-smoker [facility] Start: 10-02-2024 End: 03-01-2025 Alcoholic beverage intake Ex-drinker (finding) [facility] Start: 10-02-2024 Tobacco Comment Pateint only u ses the Vape She doesnt smoke nicotine Patient quit smoking 08/20/2024 [facility] Medical Equipment Procedure Code Equipment Code Equipment Origin al Text Equipment Identifier Dates Catheter Sampson Surecuff 9.6fr 3.2mm 1.6mm 2 Branch 90cm Central Venous 1 - [id number] Start: 08-26-2024 Tray Powerpicc 5 fr .018in Nitinol 70cm Catheter 2 Lumen Guidewire - [id number] Start: 12-08-2024 Goals Date Patient Goal Desired Activity /State Personal health goal Personal health goal Functional Status Date Assessment Result Facility 12-21-2024 Are you deaf, or do you have serious difficulty hearing No 12/21/2024 2:10 PM EDT Morena Toth, NATHANAEL No [facility] 12-21-2024 Are you blind, or do you have serious difficulty seeing, even when wearing glasses No 12/21/2024 2:10 PM EDT Morena Toth, NATHANAEL No [facility] 12-21-2024 Do you have serious difficulty walking or climbing stairs No 12/21/2024 2:10 PM EDT Morena Toth, NATHANAEL No [facility] 12-21-2024 Do you have difficul ty dressing or bathing No 12/21/2024 2:10 PM EDT Morena Toth, NATHANAEL No [facility] 12-21-2024 Because of a physica l, mental, or emotional condition, do you have difficulty doing errands alone such as visiting a physician's office or shopping No 12/21/2024 2:10 PM EDT Morena Toth, NATHANAEL No [facility] 10-26-2024 Are you deaf, or do you have serious difficulty hearing No 10/26/2024 4:40 PM EDT Lyla Sullivan, NATHANAEL No [facility] 10-26-2024 Are you blind, or do you have serious difficulty seeing, even when wearing glasses No 10/26/2024 4:40 PM EDT Lyla Sullivan, NATHANAEL No [facility] 10-26-2024 Do you have serious difficulty walking or climbing stairs No 10/26/2024 4:40 PM EDT Lyla Sullivan, NATHANAEL No [facility] 10-26-2024 Do you have difficul ty dressing or bathing No 10/26/2024 4:40 PM EDT Lyla Sullivan, NATHANAEL No [facility] 10-26-2024 Because of a physica l, mental, or emotional condition, do you have difficulty doing errands alone such as visiting a physician's office or shopping No 10/26/2024 4:40 PM EDT Lyla Sullivan, RN No [facility] 09-03-2024 Are you deaf, or do you have serious difficulty hearing No 09/03/2024 8:13 PM Annabella Ramachandran RN No [facility] 09-03-2024 Are you blind, or do you have serious difficulty seeing, even when wearing glasses No 09/03/2024 8:13 PM Annabella Ramachandran, NATHANAEL No [facility] 09-03-2024 Do you have serious difficulty walking or climbing stairs No 09/03/2024 8:13 PM Annabella Ramachandran RN No [facility] 09-03-2024 Do you have difficul ty dressing or bathing No 09/03/2024 8:13 PM Annabella Ramachandran RN No [facility] 09-03-2024 Because of a physica l, mental, or emotional condition, do you have difficulty doing errands alone such as visiting a physician's office or shopping Yes 09/03/2024 8:13 PM Annabella Ramachandran RN Yes [facility] 01-28-2015 Are you deaf, or do you have serious difficulty hearing No 01/28/2015 11:33 AM Jennifer Davis MA No [facility] 01-28-2015 Are you blind, or do you have serious difficulty seeing, even when wearing glasses No 01/28/2015 11:33 AM Jennifer Davis MA No [facility] 01-28-2015 Do you have serious difficulty walking or climbing stairs No 01/28/2015 11:33 AM Jennifer Davis MA No [facility] 01-28-2015 Do you have difficul ty dressing or bathing No 01/28/2015 11:33 AM Jennifer Davis MA No [facility] 01-28-2015 Because of a physica l, mental, or emotional condition, do you have difficulty doing errands alone such as visiting a physician's office or shopping No 01/28/2015 11:33 AM Jennifer Davis MA No [facility] Mental Status Date Assessment Result Facility 12-21-2024 Because of a physica l, mental, or emotional condition, do you have serious difficulty concentrating, remembering, or making decisions No 12/21/2024 2:10 PM EDT Morena Toth, NATHANAEL No [facility] 10-26-2024 Because of a physica l, mental, or emotional condition, do you have serious difficulty concentrating, remembering, or making decisions No 10/26/2024 4:40 PM EDT Lyla Sullivan, NATHANAEL No [facility] 09-03-2024 Because of a physica l, mental, or emotional condition, do you have serious difficulty concentrating, remembering, or making decisions No 09/03/2024 8:13 PM EDT Annabella Jarquin, NATHANAEL No [facility] 01-28-2015 Because of a physica l, mental, or emotional condition, do you have serious difficulty concentrating, remembering, or making decisions Yes 01/28/2015 11:33 AM EDT Jennifer Hilliard MA Yes [facility] Clinical Notes 11-22-2017 to 05-02-2025 Addendum Note - David Nj [facility] - 03/11/2025 2:16 PM EDTAddendum Note - David Nj [facility] 03/11/2025 2:16 PM EDTTelephone Encounter - David Nj [facility] 03/11/2025 2:14 PM EDT Note Date & Type Note Facility 05-02-2025 Note HNO ID: [id number] Author: KARTHIK MALDONADO APRN.BED RUBBER Service: ? Author Type: Nurse Practitioner Type: Progress Notes Filed: 05/02/2025 12:36 Note Text: [facility] Today's Date: 05/02/2025 Name: Daly Evans [...] Percocet prescribed by her nurse practitioner at [facility], which she reports helps significantly. She is [...] She is currently seeing a doctor at [facility] for her knee pain and is [...] Risk Tool Date Completed 05/02/2025 Comments MOD.RISK-5 EILJAH-7 Anxiety Score 10 Completed Date 05/02/2025 PHQ9P [...] and validated on 05/02/2025 by Karthik Maldonado APRN.BED RUBBER All prescriptions have been APPROPRIATELY filled. No suspicious activity was identified. (more content not included)... [facility] 05-02-2025 Note HNO ID: [id number] Author: DALY RODRIGUEZ LPN Service: ? Author [...] for suicidal ideas. The patient is nervous/anxious. [facility] 03-11-2025 Note Addended by: DAVID SMITH on: 03/11/2025 02:16 PM Modules accepted: Orders [facility] 03-11-2025 Miscellaneous Notes Addended by: DAVID NJ on: 03/11/2025 02:16 PM Modules accepted: Orders Spoke with patient and advised can stop warfarin and switch to Eliquis if INR <2.0. Recommended patient have more updated INR drawn as last INR from 02/28/25 (1.4) but patient has been taking warfarin since that time. David Nj, PharmD, [facility] [phone] Spoke with patient who advised she has a starter Eliquis package but needs advise on how to transition to Eliquis. [facility] will disregard referral at this time. Will route to pharmacist and BED RUBBER to advise patient on transition from warfarin to Eliquis. Janelle Greenberg RN [facility] Patient may not be switching to warfarin. Noted in Mychart message Eliquis has been approved by insurance. Janelle Greenberg RN [facility] Call to patient's home/cell telephone number; left a voicemail message with request for the patient to return call to PAC at [phone] Option #2. Mychart message sent. Janelle Greenberg RN Pharmacy, Anticoagulation Clinic A call was placed to patient's home and cell telephone number. A voicemail message was left with request for patient to return call to [facility] at [phone] Option #2 to discuss new referral to PAC. Janelle Greenberg RN Pharmacy, Anticoagulation Clinic documented in this encounter [facility] 03-11-2025 Telephone encounter Note Spoke with patient and advised can stop warfarin and switch to Eliquis if INR <2.0. Recommended patient have more updated INR drawn as last INR from 02/28/25 (1.4) but patient has been taking warfarin since that time. David Nj PharmD, [facility] [phone] [facility] 03-11-2025 Telephone encounter Note Spoke with patient who advised she has a starter Eliquis package but needs advise on how to transition to Eliquis. [facility] will disregard referral at this time. Will route to pharmacist and BED RUBBER to advise patient on transition from warfarin to Eliquis. Janelle Greenberg RN [facility] 03-08-2025 Telephone encounter Note Patient may not be switching to warfarin. Noted in Mychart message Eliquis has been approved by insurance. Janelle Greenberg RN [facility] 03-08-2025 Telephone encounter Note The following approved [...] was identified. 03/08/2025 by Xochilt Gaston CNP. [facility] 03-08-2025 Miscellaneous Notes The following approved medication [...] a hold of me, my number is [phone]. Thanks! Laura documented in this encounter [facility] 03-07-2025 Telephone encounter Note Called Pt and [...] capsule by mouth every 12 hours. Yoli Rtiter RN March 07, 2025 7:38 PM [facility] 03-07-2025 Telephone encounter Note Please confirm her gabapentin dose, I'm unsure exactly what it is when looking at her MAR. Then I'm happy to send this in for her. Xochilt Gaston APRN.JUANY PDMP website checked and validated. All prescriptions have been APPROPRIATELY filled. No suspicious activity was identified. 03/07/2025 by Xochilt Gaston CNP. [facility] 03-06-2025 Telephone encounter Note I am out of gabapentin, and was hoping to get a refill before the weekend. It helps my wound on my left heel, and my stomach. If you need to get a hold of me, my number is [phone]. Thanks! Laura T [facility] Work Phone: 03-06-2025 Telephone encounter Note Call to patient's home/cell telephone number; left a voicemail message with request for the patient to return call to PAC at [phone] Option #2. Mychart message sent. Janelle Greenberg RN Pharmacy, Anticoagulation Clinic [facility] 03-05-2025 Telephone encounter Note Message on phone and MC left with appointment info. Fabienne Mo LPN T [facility] 03-05-2025 Miscellaneous Notes Message on phone and MC left with appointment info. Fabienne Mo LPN documented in this encounter [facility] 03-01-2025 History of Present illness Narrative 03/01/2025 Recording using [employer] software for draft documentation of the visit was discussed with the patient/authorized territory sales representative; all questions welcomed and answered. Patient/authorized territory sales representative agreed to proceed HPI: The [...] HISTORY Diagnosis Date Attempted suicide ([facility]) polysubstance Bipolar depression ([facility]) [facility] Gestational diabetes mellitus in ([facility]) Impaired fasting blood sugar 06/2015 a1c [...] Xochilt Gaston APRN.CNP documented in this encounter [facility] 03-01-2025 Telephone encounter Note A call was placed to patient's home and cell telephone number. A voicemail message was left with request for patient to return call to Pharmacy Anticoagulation Clinic at [phone] Option #2 to discuss new referral to PAC. Janelle Greenberg RN Pharmacy, Anticoagulation Clinic [facility] 03-01-2025 Instructions Xochilt Gaston APRN.CNP - 03/01/2025 11:13 AM EDT Increase your potassium pills to 3 a day and we'll recheck your level next 03/06 Increase your Coumadin (warfarin) to the 3mg daily, we'll recheck your next level 03/06 We'll get you set up with the Coumadin clinic documented in this encounter [facility] 03-01-2025 Telephone encounter Note Call placed to [...] is same weight as last weight in [facility]. HPN signed off due to noncompliance, self [...] Abs Lymph 1.00 - 4.00 k/uL 2.31 Pickett% % 7.6 Abs Pickett <0.87 k/uL 0.58 Eosin% % 2.0 Abs [...] (H) High (L) Low Chance Florentino RN [facility] 03-01-2025 Miscellaneous Notes Call placed to Daly, [...] is same weight as last weight in [facility]. HPN signed off due to noncompliance, self [...] Abs Lymph 1.00 - 4.00 k/uL 2.31 Pickett% % 7.6 Abs Pickett <0.87 k/uL 0.58 Eosin% % 2.0 Abs [...] Chance Florentino RN documented in this encounter [facility] 03-01-2025 Telephone encounter Note Addressed in phone encounter Chance Florentino RN [facility] 03-01-2025 Miscellaneous Notes Addressed in phone encounter Chance Florentino RN documented in this encounter [facility] 02-26-2025 Instructions Clayton Granados APRN.BED RUBBER - 02/26/2025 4:04 PM EDT - Continue [...] (potassium, magnesium, sodium, kidney function, CBC) to foodpanda / hellofood so they can be reviewed. - If your uploaded results aren t available or show persistent abnormalities, complete the additional labs already ordered by Ed Saxena. - After reviewing your labs, you will receive a foodpanda / hellofood message with next steps--this may include increasing Lexapro back to 40 mg or other recommendations. For those experiencing a suicidal crisis: --call the National Suicide Prevention Lifeline at 988 (449.167.1461) --text the Crisis Text Line (text HOME to 700996) --call 911 and let them know you are having a mental health crisis or go to your nearest Emergency Room for stabilization. --You can also call Mobile Crisis at [phone]. -- You may call the department appointment line at [phone] to schedule your appointment. -- Please call my nurse at [phone] or send me a message in foodpanda / hellofood with any questions or concerns between appointments. documented in this encounter [facility] 02-26-2025 History of Present illness Narrative Images [...] visit. Either the patient or their legal territory sales representative has been informed of the risks and benefits of -- and alternatives to -- treatment through a remote evaluation and consents to proceed with the evaluation remotely. Recording using [employer] software for draft documentation of the visit was discussed with the patient/authorized territory sales representative; all questions welcomed and answered. Patient/authorized territory sales representative agreed to proceed CC: Outpatient [...] suicide (HCC) polysubstance Bipolar depression (HCC) [facility] Gestational diabetes mellitus [...] to upload recent hospital lab results to [facility] for review. - Zyprexa refills sent. 4. [...] to upload recent hospital lab results to foodpanda / hellofood for review. - Will hold off on [...] TIME: 3:33 PM documented in this encounter [facility] 02-26-2025 History of Present illness Narrative [facility] SAFE-T SERVICE DATE: 02/26/2025 SERVICE TIME: 10:00am Additional Comments: Pt appears on [facility] Social Work Pro Report with a PHQ [...] TIME: 10:02 AM documented in this encounter [facility] 02-23-2025 Note [facility] 02-22-2025 Telephone encounter Note Study Title: IRB: 23-738 Caring for OutPatiEnts after Acute Kidney Injury (COPE-JONATAN) trial PI: Dr. Juan Manuel Byrd Date: 02/22/2025 Visit #: Week 9 post Index hospitalization I called the patient to follow up on her participation in the COPE-JONATAN study. Patient is currently hospitalized at [facility] Phone conversation and chart review completed for [...] post-index hospitalization [x] PCP - 02/28/2025 at [facility] [] Other provider Next Nurse Navigator phone follow-up call due 03/08/2025 for the three month follow-up visit. Patient verbalized understanding. Amy Colvin [facility] February 22, 2025 3:20 PM Addendum created on 02/22/2025 for source document clarification. Amy Colvin [facility] February 22, 2025 4:35 PM [facility] 02-22-2025 Miscellaneous Notes Study Title: IRB: 23-738 Caring for OutPatiEnts after Acute Kidney Injury (COPE-JONATAN) trial PI: Dr. Juan Manuel Byrd Date: 02/22/2025 Visit #: Week 9 post Index hospitalization I called the patient to follow up on her participation in the COPE-JONATAN study. Patient is currently hospitalized at [facility] Phone conversation and chart review completed for [...] post-index hospitalization [x] PCP - 02/28/2025 at [facility] [] Other provider Next Nurse Navigator phone follow-up call due 03/08/2025 for the three month follow-up visit. Patient verbalized understanding. Amy Colvin [facility] February 22, 2025 3:20 PM Addendum created on 02/22/2025 for source document clarification. Amy Rasmussen February 22, 2025 4:35 PM documented in this encounter [facility] 02-11-2025 Telephone encounter Note Please see pt message and advise. Once complete, send to information below from pt and update via [facility]. Lauren Hull MA Pt message: I need a doctor's referral for a physical capacity assessment, for a disability claim. [facility] can [facility] ([phone][facility] or [facility] in [place] (fax [phone]). I greatly appreciate it. Daly [facility] 02-11-2025 Miscellaneous Notes Please see pt message and advise. Once complete, send to information below from pt and update via [facility]. Lauren Hull MA Pt message: I need a doctor's referral for a physical capacity assessment, for a disability claim. I can go to [facility] ([phone]) or [facility] in [place] (fax [phone]). I greatly appreciate it. Daly documented in this encounter [facility] 02-11-2025 Telephone encounter Note Turned into TE and routed to PCP to advise. Lauren Hull MA [facility] 02-11-2025 Miscellaneous Notes Turned into TE and routed to PCP to advise. Lauren Hull MA documented in this encounter [facility] 02-08-2025 Telephone encounter Note Study Title: IRB: 23-738 Caring for OutPatiEnts after Acute Kidney Injury (COPE-JONATAN) trial PI: Dr. Juan Manuel Byrd Date: 02/08/2025 Visit #: Week 7 post Index hospitalization I called the patient to follow up on her participation in the COPE-JONATAN study. msg left to return my call. Chart review completed for the following: [facility] - device use history not recorded [...] in 2-3 days, pending return call from [facility]. Amy Rasmussen February 08, 2025 4:22 PM [facility] 02-08-2025 Miscellaneous Notes Study Title: IRB: 23-738 Caring for OutPatiEnts after Acute Kidney Injury (COPE-JONATAN) trial PI: Dr. Juan Manuel Byrd Date: 02/08/2025 Visit #: Week 7 post Index hospitalization I called the patient to follow up on her participation in the COPE-JONATAN study. left to return my call. Chart review completed for the following: Access patients data on [employer] dashboard:N/A - device use history not recorded [...] in 2-3 days, pending return call from [facility]. Amy Rasmussen February 08, 2025 4:22 PM documented in this encounter [facility] 02-07-2025 Telephone encounter Note Prescription for Flagyl sent to local pharmacy. Sandra Castle PA-C [facility] 02-07-2025 Miscellaneous Notes Prescription for Flagyl sent [...] via my chart. documented in this encounter [facility] 02-07-2025 Telephone encounter Note I called Daly [...] for signature. Pt notified via my chart. [facility] 01-28-2025 Instructions Ed Saxena APRN.JUANY - 01/28/2025 2:35 PM EDT Get your labs on your way out today documented in this encounter [facility] 01-28-2025 History of Present illness Narrative This [...] suicide (HCC) polysubstance Bipolar depression ([facility]CC[facility] Gestational diabetes mellitus in (HCC) Impaired [...] needing to have her picc line removed. [facility] WAITRESS/WAITER calling wound center to see if they are comfortable doing so. Labs being drawn today. Discussed treatment plan and patient voices understanding. Patient's questions answered appropriately. Medications and potential side effects were discussed and patient voices understanding. Return to the office as scheduled or as needed for worsening/no improvement. Ed Saxena APRN.BED RUBBER Recording using [employer] software for draft documentation of the visit was discussed with the patient/authorized territory sales representative; all questions welcomed and answered. Patient/authorized territory sales representative agreed to proceed documented in this encounter [facility] 01-28-2025 Telephone encounter Note Study Title: IRB: [...] Jigna Montalvo January 28, 2025 12:18 PM [facility] 01-28-2025 Miscellaneous Notes Study Title: IRB: 23-738 [...] 2025 12:18 PM documented in this encounter [facility] 01-24-2025 Telephone encounter Note Home Nutrition Support [...] episode closed Bisi Seo RD, DEON, CNSC [facility] Work Phone: 01-24-2025 Miscellaneous Notes Home Nutrition [...] RD, LD, CNSC documented in this encounter [facility] 01-24-2025 Telephone encounter Note Called spoke with pt gave information provided. Pt voices understanding. [facility] 01-24-2025 Miscellaneous Notes Called spoke with pt gave information provided. Pt voices understanding. Images from the original note were not included. Ed Saxena APRN.JUANY to [facility] 01/24/25 8:59 AM Result Note Call placed [...] went over results, notes from Ed Saxena APARTMENT LOCATOR with understanding. documented in this encounter [facility] 01-24-2025 Telephone encounter Note Images from the original note were not included. Ed Saxena APRN.BED RUBBER to [facility] 01/24/25 8:59 AM Result Note Call placed [...] went over results, notes from Ed Saxena APARTMENT LOCATOR with understanding. [facility] 01-23-2025 Telephone encounter Note Agree that we should not manage in the future. Very sad for her. Farzaneh Elaine MD January 23, 2025 [facility] Work Phone: 01-23-2025 Miscellaneous Notes Agree that we should not manage in the future. Very sad for her. Farzaneh Elaine MD January 23, 2025 Home Nutrition Support Service Received email from [facility] that patient is refusing delivery/all future PN [...] non-compliance letter to patient and email to [place] once confirmed with Dr. Montoya and Dr. Elaine that [facility] would not manage in future if patient were to need PN given severe non-compliance and complete self-weaning of PN. Reccs: - Sign off orders sent to [facility] as patient self-weaned her PN completely and is refusing all PN deliveries - Order for PICC removal pended in [facility] and routed to Dr. Montoya for signature - Encounter routed to Dr. Montoya and Dr. Elaine to confirm that [facility] would not manage in the future should patient need PN again given severe non-compliance and complete self-weaning of PN. Also routed to Transplant as an FYI/update on PN Bisi Seo RD, LD, CNSC documented in this encounter [facility] 01-23-2025 Telephone encounter Note Home Nutrition Support Service Received email from [facility] that patient is refusing delivery/all future PN [...] Reccs: - Sign off orders sent to [facility] as patient self-weaned her PN completely and is refusing all PN deliveries - Order for PICC removal pended in [facility] and routed to Dr. Montoya for signature - Encounter routed to Dr. Montoya and Dr. Elaine to confirm that [facility] would not manage in the future should patient need PN again given severe non-compliance and complete self-weaning of PN. Also routed to Transplant as an FYI/update on PN Bisi Seo RD, LD, CNSC [facility] Work Phone: 01-17-2025 Telephone encounter Note Home Nutrition Support Service Patient called office and stated she needs to stop TPN because she no longer has room in her refrigerator, and because Dr. Devine said she needs to stop. Reviewed [facility] encounters. Last encounter with Dr. Devine was [...] last week Bisi Seo RD, LD, CNSC [facility] Work Phone: 01-17-2025 Miscellaneous Notes Home Nutrition [...] Dr. Devine that she needs to discontinue. [phone] documented in this encounter [facility] 01-17-2025 Telephone encounter Note Pt called to discuss weaning TPN. Has been told by Dr. Devine that she needs to discontinue. [phone] [facility] 01-14-2025 Telephone encounter Note Call placed to Daly about her lab work and inquiring if she picked up the lovenox and warfarin and if anyone followed up with her on the labs. 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 She said all the pharmacies were out of lovenox injections. Ordered an INR and told her to get it drawn tomorrow. Ed Saxena APRN.JUANY [place] [id number] Miscellaneous Notes Call placed to Daly about her lab work and inquiring if she picked up the lovenox and warfarin and if anyone followed up with her on the labs. 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 She said all the pharmacies were out of lovenox injections. Ordered an INR and told her to get it drawn tomorrow. Ed Saxena APRN.JUANY documented in this encounter [facility] 01-11-2025 Instructions Clayton Granados APRN.JUANY - 01/11/2025 [...] This prescription has been sent to your [facility] pharmacy in [place]. - If you experience any gastrointestinal side [...] --call the National Suicide Prevention Lifeline at 517 (189-874-9777) --text the Crisis Text Line (text HOME to 394590) --call 911 and let them know you are having a mental health crisis or go to your nearest Emergency Room for stabilization. --You can also call Mobile Crisis at [phone]. -- You may call the department appointment line at [phone] to schedule your appointment. -- Please call my nurse at [phone] or send me a message in foodpanda / hellofood with any questions or concerns between appointments. documented in this encounter [facility] 01-11-2025 History of Present illness Narrative Images [...] visit. Either the patient or their legal territory sales representative has been informed of the risks and benefits of -- and alternatives to -- treatment through a remote evaluation and consents to proceed with the evaluation remotely. Recording using ambient [employer] software for draft documentation of the visit was discussed with the patient/authorized territory sales representative; all questions welcomed and answered. Patient/authorized territory sales representative agreed to proceed CC: Outpatient [...] 20 mg during her hospital stay at [facility], reportedly due to concerns about gut absorption [...] TIME: 3:12 PM documented in this encounter [facility] 01-10-2025 Ed Romano APRN.JUANY - 01/10/2025 2:51 [...] in next week documented in this encounter [facility] 01-10-2025 History of Present illness Narrative This [...] After all this she was discharged to [facility] around 09/03/24. Then 10/09 she had an accidental overdose of methadone at [facility], started having high output from her stoma [...] during stay in November Staple Removal: - Goldvein and sutures in place from recent abdominal [...] which included preparing to see the patient, [id number] patient care, obtaining and/or reviewing separately obtained [...] as needed for worsening/no improvement. Ed Saxena APRN.BED RUBBER Recording using [employer] software for draft documentation of the visit was discussed with the patient/authorized territory sales representative; all questions welcomed and answered. Patient/authorized territory sales representative agreed to proceed documented in this encounter [facility] 01-10-2025 Telephone encounter Note Home Nutrition Support [...] week to include CRP Mayra Alexandre RD [facility] 01-10-2025 Miscellaneous Notes Home Nutrition Support Service [...] local ED not viewable in [facility]/Care everywhere. No answer, LVM. Rec: await return [...] to the ED for repletion. Noted that [facility] has not been able to get ahold of patient since discharge, and these labs are overdue from 12/31. Discussed this w/ patient and she agreed to call [facility] back tomorrow so we can discuss overall plan/ New Patient Week 1. Recs: - Await ED outcome Mayra Alexandre RD documented in this encounter [facility] 01-10-2025 Telephone encounter Note Home Nutrition Support Service Call to pt to follow up. ED visit not seen in [facility] though may have gone to local ED not viewable in [facility]/Care everywhere. No answer, LVM. Rec: await return call Satish Haider RD, LD, CNSC [facility] Work Phone: 01-09-2025 Telephone encounter Note Study [...] Amy Rasmussen January 09, 2025 11:16 AM [facility] 01-09-2025 Miscellaneous Notes Study Title: IRB: 23-738 Caring for OutPatiEnts after Acute Kidney Injury (COPE-JONATAN) trial PI: Dr. Juan Manuel Byrd Date: 01/09/2025 Visit #: Week 3 post Index hospitalization I called the patient to follow up on her participation in the COPE-JONATAN study. Phone conversation and chart review completed for the following: Access patients data on Moxie Jean dashboard: N/A -[employer] devices not in use. [...] 2025 11:16 AM documented in this encounter [facility] 01-08-2025 Telephone encounter Note Home Nutrition Support [...] to the ED for repletion. Noted that [facility] has not been able to get ahold of patient since discharge, and these labs are overdue from 12/31. Discussed this w/ patient and she agreed to call [facility] back tomorrow so we can discuss overall plan/ New Patient Week 1. Recs: - Await ED outcome Mayra Alexandre RD [facility] 01-07-2025 Telephone encounter Note Record ID: [id number] Patient name: Daly Evans Date: January 07, [...] was moved to different rooms five times [facility] 01-07-2025 Miscellaneous Notes Record ID: [id number] Patient name: Daly Evans Date: January 07, 2025 - 12:02 Administered by: LARRY Protocol: -> Great! Now we are in a secure chat environment. Protecting your health information is important to us. Ok, let's get started. Please verify your name and date of . Please click on the button with your first name. -> Dlay Got it. On to the next question... [...] rooms five times documented in this encounter [facility] 01-04-2025 Telephone encounter Note Unable To Reach Patient Patient's name appears on the PRO T[employer]ig report for a PHQ-9 score of 14 and +9. Second attempt:SW called Patient to follow up and left a VM requesting a call back. MONIKA Dhillon [facility] 01-04-2025 Miscellaneous Notes Unable To Reach Patient Patient's name appears on the PRO T[employer]ig report for a PHQ-9 score of 14 and +9. Second attempt:SW called Patient to follow up and left a VM requesting a call back. MONIKA Dhillon documented in this encounter [facility] 01-03-2025 Telephone encounter Note Unable To Reach Patient Patient's name appears on the PRO [employer]ig report for a PHQ-9 score of 14 and +9. SW called Patient to follow up and left a VM requesting a call back. [employer] SEVERITY RATING SCALE Unable to reach Patient to assess. MONIKA Dhillon [facility] 01-03-2025 Miscellaneous Notes Unable To Reach Patient Patient's name appears on the PRO [employer]ig report for a PHQ-9 score of 14 and +9. SW called Patient to follow up and left a VM requesting a call back. [place] SUICIDE SEVERITY RATING SCALE Unable to reach Patient to assess. MONIKA Dhillon documented in this encounter [facility] 01-02-2025 Telephone encounter Note Transitional Care Management (TCM) [facility] Provider Action / FYI: N/a SUMMARY: Outreach type: INITIAL OUTREACH Discharge Network Status: In-Network Discharge Source of Patient: [facility] TCM Discharge Report Patient discharged from [facility] on 12/21/2024. Admitted for Lactic acidosis. Contact made with patient: No, for Follow-up - end outreach and close encounter. Polly Blanton January 02, 2025 2:24 PM [facility] 01-02-2025 Miscellaneous Notes Transitional Care Management (TCM) [facility] Monitoring Program Provider Action / FYI: N/a SUMMARY: Outreach type: INITIAL OUTREACH Discharge Network Status: In-Network Discharge Source of Patient: [facility] TCM Discharge Report Patient discharged from [facility] on 12/21/2024. Admitted for Lactic acidosis. Contact made with patient: No, for Follow-up - end outreach and close encounter. Polly Blanton January 02, 2025 2:24 PM documented in this encounter [facility] 01-02-2025 Telephone encounter Note Study Title: IRB: 23-738 Caring for OutPatiEnts after Acute Kidney Injury (COPE-JONTAAN) trial PI: Dr. Juan Manuel Byrd Date: [...] Jigna Montalvo January 02, 2025 11:04 AM [facility] 01-02-2025 Miscellaneous Notes Study Title: IRB: 23-738 [...] 2025 11:04 AM documented in this encounter [facility] 01-01-2025 Telephone encounter Note Transitional Care Management (TCM) [facility] Provider Action / FYI: na SUMMARY: Outreach type: INITIAL OUTREACH Discharge Network Status: In-Network Discharge Source of Patient: [facility] TCM Discharge Report Patient discharged from [facility] on 12.21.24. Admitted for Lactic acidosis. . Contact made with patient: No - 2nd unsuccessful attempt - end outreach and close encounter. Sean De La Fuente January 01, 2025 10:37 AM [facility] 01-01-2025 Miscellaneous Notes Transitional Care Management (TCM) [facility] Provider Action / FYI: na SUMMARY: Outreach type: INITIAL OUTREACH Discharge Network Status: In-Network Discharge Source of Patient: [facility] TCM Discharge Report Patient discharged from [facility] on 12.21.24. Admitted for Lactic acidosis. . Contact made with patient: No - 2nd unsuccessful attempt - end outreach and close encounter. Sean De La Fuente January 01, 2025 10:37 AM documented in this encounter [facility] 12-31-2024 History of Present illness Narrative Images [...] a 39 year old single female from [place], [place] ([address], supportive father) with a history of bipolar disorder, severe panic attacks, polysubstance abuse (EtOH, marijuana - sober since at least Apr 2024), violent behavior under influence of EtOH (September 2021), smoking (quit Jul 2024), (2012), preDM, and lap maryellen (2018). She was transferred to [facility] 08/20/24 with a mural thrombus in [...] DC to SNF 09/03/24 and referred to [facility] Medical and Surgical Teams for STEP + Gattex. 10/09/24 OSH Admission for accidental overdose of Methadone at SNF. 10/19/24 OSH Admission for high output stoma. Cdiff negative. Stool for GI panel in process. Remains off TPN. Electrolyte repletion underway. Initial JONATAN Cr >2 has resolved. High stoma output, but it is not measured at the shelter. 11/18-11/05/24 OSH Admission for high output stoma [...] output stoma and dehydration Presented to the [facility] emergency room with concerns for dehydration and [...] Partial Omentectom. 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 Kirit Devine MD [facility] STAFF PHYSICIAN NOTE OF PERSONAL INVOLVEMENT IN [...] lagos components of the note. PHYSICAL EXAM: [facility] 08/29/2024 General appearance: well appearing, alert, [...] She has been eating [employer] yesterday and [employer] sausage, egg and cheese for breakfast. She [...] Castle PA-C 12/26/2024 documented in this encounter [facility] 12-31-2024 Note [facility] 12-25-2024 Telephone encounter Note Study Title: [...] call. Discussed care recommendations: Next appointment scheduled: [facility] 12-25-2024 Miscellaneous Notes Study Title: Caring for [...] Next appointment scheduled: documented in this encounter [facility] 12-25-2024 Telephone encounter Note Transitional Care Management (TCM) [facility] Provider Action / FYI: N/A SUMMARY: Outreach type: INITIAL OUTREACH Discharge Network Status: In-Network Discharge Source of Patient: [facility] TCM Discharge Report Patient discharged from [facility] on 12/21/24. Admitted for Lactic acidosis. Contact made with patient: No - next outreach attempt will be on next business day. Suman Guevara RN December 25, 2024 2:27 PM [facility] 12-25-2024 Miscellaneous Notes Transitional Care Management (TCM) [facility] Provider Action / FYI: N/A SUMMARY: Outreach type: INITIAL OUTREACH Discharge Network Status: In-Network Discharge Source of Patient: [facility] TCM Discharge Report Patient discharged from [facility] on 12/21/24. Admitted for Lactic acidosis. Contact made with patient: No - next outreach attempt will be on next business day. Suman Guevara RN December 25, 2024 2:27 PM documented in this encounter [facility] 12-25-2024 Telephone encounter Note Pt was discharged [...] on Sunday 12/31. Dr. Devine was updated. [facility] 12-25-2024 Miscellaneous Notes Pt was discharged 12/21 [...] Devine was updated. documented in this encounter [facility] 12-25-2024 History of Present illness Narrative COPE-JONATAN [...] PHARMACIST ASSESSMENT/CHECKLIST: -Discharge date: 12/21/24 -Date of [facility] assessment/communication: 12/25/24 -Disposition of the patient at time of assessment? Home -Review study patrol judge (B-[id number]) and nurse navigator (B-41) documentation if [...] When in the Hospital: Presented to the [facility] emergency room with concerns for dehydration and [...] Partial Omentectom. 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 escitalopram oxalate (LEXAPRO) 20 mg [...] 2024 9:10 AM documented in this encounter [facility] 12-25-2024 Note [facility] 12-21-2024 Note [facility] 12-21-2024 Note [facility] 12-21-2024 Note [facility] 12-21-2024 History of Present illness Narrative [facility] Patient education Checklist. Patient Name: Daly Evans MR# [id number] Date: December 21, 2024 10:17 am Performance [...] Infusion Pharmacy Nurse documented in this encounter [facility] 12-21-2024 Note [facility] 12-20-2024 Note [facility] 12-20-2024 Note [facility] 12-20-2024 Note [facility] 12-20-2024 History of Present illness Narrative Study Title: Caring for OutPatiEnts aftr Acute Kidney Injury (COPE-JONATAN) Trial IRB:[id number] PI: Dr. Byrd Date: 12/20/2024 Visit: Pre Hospital Discharge Has study patrol judge completed their assessment/guidance for post management: Pending B- Nurse navigator reviewed the plan of management with the study patrol judge to determine: *Follow-up with clinical patrol judge: pending *Follow-up with PCP: Yes-scheduled *What are the targets for BP and volume (weight) management: -BP: 130/80 -Weight: Baseline -Specific management issues study patrol judge is concerned about: Pending Informed the patient [...] on equipment: Yes Device serial number scale: [id number] Device serial number BP device: [id number] C-24 Labs Collected: blood: No urine: No Contact PCP: pending Next appointment scheduled: 2-3 day visit. Jigna Montalvo December 25, 2024 11:13 AM documented in this encounter [facility] 12-19-2024 Note [facility] 12-19-2024 Note [facility] 12-18-2024 Note [facility] 12-18-2024 Note [facility] 12-17-2024 Note [facility] 12-17-2024 Note [facility] 12-16-2024 Note [facility] 12-16-2024 Note [facility] 12-15-2024 Note [facility] 12-15-2024 Note [facility] 12-14-2024 Note [facility] 12-14-2024 Note [facility] 12-13-2024 Note [facility] 12-13-2024 Telephone encounter Note Message given to Sandra Castle PA-c, inpatient team. [facility] 12-13-2024 Miscellaneous Notes Message given to Sandra Castle PA-c, inpatient team. Ernst called concerning the status of the pt's surgery. Requesting a return call from the payroll and benefits coordinator. Please call Ernst at [phone]. Twila Vargas documented in this encounter [facility] 12-13-2024 Telephone encounter Note Ernst called concerning the status of the pt's surgery. Requesting a return call from the payroll and benefits coordinator. Please call Ernst at [phone]. Twila Vargas [facility] 12-13-2024 Note [facility] 12-12-2024 Note [facility] 12-12-2024 Note [facility] 12-12-2024 Note [facility] 12-12-2024 Note [facility] 12-11-2024 Note [facility] 12-10-2024 Note [facility] 12-09-2024 Note [facility] 12-09-2024 Note [facility] 12-08-2024 Note [facility] 12-07-2024 Note [facility] 12-07-2024 Note [facility] 12-07-2024 Note [facility] 12-06-2024 Note [facility] 12-06-2024 Note [facility] 12-05-2024 Note [facility] 11-28-2024 Telephone encounter Note I called [...] to the ED as we discussed yesterday. [facility] 11-28-2024 Miscellaneous Notes I called Ernst back [...] requesting that Libia calls him back at [phone]. Ernst says that Daly is in the emergency room because she is having issues with her ostomy bag. Ernst says that Daly is sweating, dizzy, and in pain. documented in this encounter [facility] 11-28-2024 Telephone encounter Note Ernst (father) called in requesting that Libia calls him back at [phone]. Ernst says that Daly is in the emergency room because she is having issues with her ostomy bag. Ernst says that Daly is sweating, dizzy, and in pain. [facility] Work Phone: 11-27-2024 Telephone encounter Note I returned Daly's call. She was hospitalized again a few days ago. She was given IVF and electrolytes, and then discharged. She has had multiple local hospital admissions for dehydration, high stoma output, and electrolyte imbalance. She has not yet been evaluated by our team, and has decided to come to [facility] ED tomorrow for evaluation and possible admission to the medicine service for stabilization. I told her that I will inform Dr. Devine. I did reach out to Dr. Devine and shared the above. [facility] 11-27-2024 Miscellaneous Notes I returned Daly's call. She was hospitalized again a few days ago. She was given IVF and electrolytes, and then discharged. She has had multiple local hospital admissions for dehydration, high stoma output, and electrolyte imbalance. She has not yet been evaluated by our team, and has decided to come to [facility] ED tomorrow for evaluation and possible admission to the medicine service for stabilization. I told her that I will inform Dr. Devine. I did reach out to Dr. Devine and shared the above. The patient requests a call from Libia.. Gretchen Navarrete documented in this encounter [facility] 11-27-2024 Telephone encounter Note The patient requests a call from Libia.. Gretchen Navarrete [facility] 11-23-2024 Note [facility] 11-16-2024 Note [facility] 11-14-2024 Note [facility] 11-12-2024 Telephone encounter Note I called patient and left a voicemail for her and her father and explained that she should come to the [facility] ED if she is having N, V, high output, or dehydration so that we can evaluate her here and determine what is needed for optimization for surgery. I also explained that the physicians and the hospital she is evaluated at can request transfer to [facility]. [facility] 11-12-2024 Miscellaneous Notes I called patient and left a voicemail for her and her father and explained that she should come to the [facility] ED if she is having N, V, [...] back to reschedule documented in this encounter [facility] 11-12-2024 Telephone encounter Note Patient called in to cancel today's appointment because she going to the Emergency room now and she will call back to reschedule [facility] 11-06-2024 Telephone encounter Note Transitional Care Management (TCM) [facility] Provider Action / FYI: na SUMMARY: Outreach type: INITIAL OUTREACH Discharge Network Status: In-Network Discharge Source of Patient: [facility] TCM Discharge Report Patient discharged from [facility] on 10.26.24. Admitted for Intractable diarrhea . Contact made with patient: No - next outreach attempt will be on next business day. Rico Minor November 06, 2024 4:23 PM [facility] 11-06-2024 Miscellaneous Notes Transitional Care Management (TCM) [facility] Provider Action / FYI: na SUMMARY: Outreach type: INITIAL OUTREACH Discharge Network Status: In-Network Discharge Source of Patient: [facility] TCM Discharge Report Patient discharged from [facility] on 10.26.24. Admitted for Intractable diarrhea . Contact made with patient: No - next outreach attempt will be on next business day. Rico Minor November 06, 2024 4:23 PM documented in this encounter [facility] 11-05-2024 Telephone encounter Note I called Daly and she was disharged from [facility] last week 10/30 to 11/05/24 for dehydration. [...] TPN management CT chest w IV con [facility] 11-05-2024 Miscellaneous Notes I called Daly and she was disharged from [facility] last week 10/30 to 11/05/24 for dehydration. [...] for this request documented in this encounter [facility] 11-05-2024 Telephone encounter Note Patient called in requesting an appointment with Dr. Devine can an order be put in for this request [facility] 11-05-2024 Note [facility] 10-30-2024 Telephone encounter Note Record ID: [id number] Patient name: Daly Evans Date: October 30, [...] since you first noticed them? -> Same [facility] 10-30-2024 Miscellaneous Notes Record ID: [id number] Patient name: Daly Evans Date: October 30, [...] them? -> Same documented in this encounter [facility] 10-26-2024 History of Present illness Narrative Daly [...] attend because she is currently admitted to [facility] for diarrhea exacerbation associated with JONATAN, hyponatremia, and hypokalemia. She will be rescheduled. Daly Evans 10/26/2024 documented in this encounter [facility] 10-26-2024 Note HNO ID: [id number] Author: MORENA PALACIOS LSW Service: Care Management Author Type: Lasting Machine Operator Hand Method Type: Care Mgt Progress Note Filed: 10/26/2024 12:47 Note Text: CARE MANAGEMENT PROGRESS NOTE SERVICE DATE: 10/26/2024 SERVICE TIME: 12:41 PM LOS: 7 days Chart reviewed. Pt admitted from [facility] for intractable diarrhea. She has an [...] will discharge to her parents home at: [address], [place]. CHRISTY let Cornelius know this. SIGNATURE: CHANELL Stewart PATIENT NAME: Daly Evans DATE: October 26, 2024 TIME: 12:41 PM [facility] 10-25-2024 Note HNO ID: [id number] Author: WILLIS FINCH DO Service: Hospital Medicine [...] resection with ostomy [facility] output ostomy She had evidence of renal failure as well as multiple electrolyte abnormalities (see below) Gastroenterology is following C. diff negative Stool PCR negative Continue scheduled Imodium 4 mg TID Acute kidney injury [facility].8 [facility] Likely secondary to GI losses Creatinine now normalized Hyponatremia Sodium 130 [facility] Likely secondary to GI losses Sodium now 135 today Hypokalemia Potassium 3.3 [facility] Likely secondary to GI losses Still 3.4 today Will again supplement Left foot discoloration, ?gangrene Left toes are black, per patient this began while she was at [facility] Chart review indicates she had bilateral lower extremity tibial thromboemboli and underwent thromboembolectomy of the anterior tibial, posterior tibial, and peroneal arteries Podiatry following X-rays obtained on 10/23 showed no evidence of osteomyelitis I spoke with Dr. Mccarthy yesterday, he has no immediate plans for surgical intervention th (more content not included)... [facility] 10-24-2024 Note HNO ID: [id number] Author: WILLIS FINCH DO Service: Hospital Medicine [...] resection with ostomy [facility] due to high output ostomy She [...] patient this began while she was at [facility] Chart review indicates she had bilateral lower extremity tibial thromboemboli and underwent thromboembolectomy of the anterior tibial, posterior tibial, and peroneal arteries Podiatry following X-rays obtained yesterday showed no evidence of osteomyelitis I spoke with Dr. Mccarthy today, he has no immediate (more content not included)... [facility] 10-24-2024 Note HNO ID: [id number] Author: MORENA PALACIOS LSW Service: Care Management Author Type: Lasting Machine Operator Hand Method Type: Care Mgt Progress Note Filed: 10/24/2024 12:21 Note Text: CARE MANAGEMENT PROGRESS NOTE SERVICE DATE: 10/24/2024 SERVICE TIME: 9:36 AM LOS: 5 days Chart reviewed. Pt admitted from [facility] for intractable diarrhea; she has an ostomy. GI consulted for high ostomy output, they signed off yesterday 10/23. Podiatry consulted for left foot discoloration/gangrene. DC plan is to return to [facility] for wound care; precert started today. Post acute checklist on chart, will need wheelchair transport. SIGNATURE: CHANELL Stewart PATIENT NAME: Daly Evans DATE: October 24, 2024 TIME: 9:36 AM [facility] 10-23-2024 Note HNO ID: [id number] Author: WILLIS FINCH DO Service: Hospital Medicine [...] resection with ostomy [facility] due to high output ostomy She had evidence of renal failure as well as multiple electrolyte abnormalities (see below) Gastroenterology is following C. diff negative Stool PCR negative Continue scheduled Imodium, increase today to 4 mg TID Acute kidney injury Creatinine 2.8 [facility] Likely secondary to GI losses Creatinine now normalized Hyponatremia Sodium 130 [facility] Likely secondary to GI losses Sodium now 133 today Hypokalemia Potassium 3.3 [facility] Likely secondary to GI losses Still 3.4 today Will again supplement Left foot discoloration, ?gangrene Left toes are black, per patient this began while she was at [facility] Chart review indicates she had bilateral lower extremity tibial thromboemboli and underwent thromboembolectomy of the anterior tibial, posterior tibial, and peroneal arteries Continue therapeutic Lovenox Podiatry now following X-rays obtained today showed no evidence of osteomyelitis Continue local wound care Chronic comorbidities Bipolar disorder Anxiety Hx of substance abuse SIGNATURE: Willis Finch, (more content not included)... [facility] 10-23-2024 Note HNO ID: [id number] Author: YOHANA MCCARTHY III, DPM Service: Podiatry Author Type: Physician Type: Progress Notes Filed: 10/23/2024 17:49 Note Text: Podiatry Progress Note: X-rays reviewed. No signs of fracture or osteomyelitis or soft tissue gas. Gangrene is dry and stable. Continue wound care. Will follow as outpatient. Yohana Mccarthy III, DPM FACFAS 5:48 PM [facility] 10-22-2024 Note HNO ID: [id number] Author: WILLIS FINCH DO Service: Hospital Medicine [...] resection with ostomy [facility] due to high output ostomy She had evidence of renal failure as well as multiple electrolyte abnormalities (see below) Gastroenterology is following C. diff negative Stool PCR negative Scheduled Imodium started today (2 mg QID) Acute kidney injury Creatinine 2.8 [facility] Likely secondary to GI losses Creatinine now normalized Will stop IV fluids Hyponatremia Sodium 130 in [facility] Likely secondary to GI losses Sodium now 136 today Stopping IV fluids Hypokalemia Potassium 3.3 [facility] Likely secondary to GI losses Still 3.2 today Will again supplement Left foot discoloration, ?gangrene Left toes are black, per patient this began while she was at [facility] Chart review indicates she had bilateral lower extremity tibial thromboemboli and underwent thromboembolectomy of the anterior tibial, posterior tibial, and peroneal arteries Continue ther (more content not included)... [facility] 10-22-2024 Note HNO ID: [id number] Author: WILLIS FINCH DO Service: Hospital Medicine Author Type: Physician Type: Progress Notes Filed: 10/22/2024 15:27 Note Text: Documentation Query Please clarify the diagnosis associated with the clinical indicators for this patient Provider Response: Hypokalemia supported by: Oral Supplement of Potassium chloride and IV Infusion of Potassium chloride This document will become part of the patient's medical record. [facility] 10-22-2024 Note HNO ID: [id number] Author: MORENA PALACIOS LSW Service: Care Management Author Type: Lasting Machine Operator Hand Method Type: Care Mgt Initial Assessment Filed: 10/22/2024 12:51 Note Text: CARE MANAGEMENT: ASSESSMENT AND DISCHARGE PLAN SERVICE DATE: October 22, 2024 SERVICE TIME: 12:43 PM PCP: Fredrick Boland DO Primary Contact: Extended Emergency Contact Information Primary Emergency Contact: Ernst Evans Mobile Relation: Father Secondary Emergency Contact: Mary Evans [facility] Relation: Mother Admission Status: Inpatient Insurance Provider: CARLA MUÑOZ MEDICAID Discharge Planning requested by: Potential Transition Plans Advance Directives Current Living Arrangements and Support Lives with: Type of Residence: Support: Current Services/Equipment Discharge Planning Patient Goal(s): [place] Explained: Are you interested in [...] were you homeless or living in a mcc (including now)?: No Utilities In the past 12 months has the [employer], gas, oil, or water [employer] threatened to shut off services in your home?: No Post-Acute Discharge Plan: Chart reviewed. Pt admitted from [facility] for intractable diarrhea. She has an extensive medical history: Main [place]: 08/20/2024: Small bowel resection, Ileocecectomy with general surgery. 08/20/24: Bilateral below-knee popliteal cutdown, Thromboembolectomy of AT, PT and peroneal arteries. Primary repair of tibial arteriotomies. Bilateral lower extremity 4 compartment fasciotomies with vascular surgery. 08/22/2024: Second look laparotomy, loop-end jejunosotomy. 08/23/2024: BLE fasciotomy closure. She is currently having high ostomy output. GI consulted. Pt will return to [facility] at discharge. Will need auth to return; she was skilled for wound care. Will need transportation. SIGNATURE: CHANELL Stewart PATIENT NAME: Daly Evans DATE: October 22, 2024 TIME: 12:43 PM [facility] 10-21-2024 Note HNO ID: [id number] Author: WILLIS FINCH DO Service: Hospital Medicine [...] resection with ostomy [facility] due to high output ostomy She had evidence of renal failure as well as multiple electrolyte abnormalities (see below) Gastroenterology is following C. diff negative Stool PCR collected, results pending Antimotility agent being deferred for now until infectious etiology is ruled out Acute kidney injury [facility]inine 2.8 [facility] Likely secondary to GI losses Continue IV fluids via lactated Ringer's at 150 cc/hour Creatinine now normalized Hyponatremia Sodium 130 [facility] Likely secondary to GI losses Continue IV fluids as outlined above Sodium now 135 today Hypokalemia Potassium 3.3 in [facility] Likely secondary to GI losses Still 2.8 today Will supplement Chronic comorbidities Hx of DVT Bipolar disorder Anxiety Hx of substance abuse SIGNATURE: Willis Finch DO PATIENT NAME: Daly Evans DATE: October 21, 2024 TIME: 11:49 PM [facility] 10-21-2024 Note HNO ID: [id number] Author: TUNG JENNINGS MD Service: Gastroenterology Author [...] October 21, 2024 TIME: 12:09 PM PAGER: [facility] 10-20-2024 Note HNO ID: [id number] Author: WILLIS FINCH DO Service: Hospital Medicine [...] resection with ostomy [facility] due to high output ostomy She had evidence of renal failure as well as multiple electrolyte abnormalities (see below) Gastroenterology is following Stool PCR ordered Antimotility agent being deferred for now until infectious etiology is ruled out Acute kidney injury Creatinine 2.8 [facility] Likely secondary to GI losses Continue IV fluids via lactated Ringer's at 150 cc/hour Hyponatremia Sodium 130 in [facility] Likely secondary to GI losses Continue IV fluids as outlined above Hypokalemia Potassium 3.3 in [facility] Likely secondary to GI losses Will supplement Chronic comorbidities Hx of DVT Bipolar disorder Anxiety Hx of substance abuse SIGNATURE: Willis Finch DO PATIENT NAME: Daly Evans DATE: October 20, 2024 TIME: 4:15 PM [facility] 10-12-2024 Note HNO ID: [id number] Author: JAKE MORALES RN Service: Care Management Author Type: Registered Nurse Type: Care Mgt Progress Note Filed: 10/12/2024 12:02 Note Text: CARE MANAGEMENT DISCHARGE NOTE SERVICE DATE: October 12, 2024 SERVICE TIME: 11:57 AM Admission Date: 10/09/2024 LOS: 0 days Discharge Arrangement Pt to discharge to [facility] this date at 1200, father to transport pt. Services Arranged [facility]. Provider Name: Dr. Fredrick Boland Caregiver Assessment SNF staff. Transportation Arrangements This RN cancelled transportation setup as pt's father can now transport pt. Handoff Communication: Summary of care sent to PCP and GI. Additional Information: Pt to discharge to [facility] this date at 1200, father to transport pt. No precert or HENS form needed. Discharge packet completed and on chart. Shanta RN called report and placed AVS in discharge packet. This RN sent updates via [employer]. Pt, attending, RN, dry charge process attendant, and Niki from [facility] notified of and agreeable to discharge plan. LOC SNF. Case closed. Discharge Information Row Name Admission (Current) from 10/09/2024 in MR [id number] MED/SURG [facility] Agency [facility] -- Phone# -- SIGNATURE: Jake Morales RN PATIENT NAME: Daly Evans DATE: October 12, 2024 TIME: 11:57 AM [facility] 10-12-2024 Note HNO ID: [id number] Author: SHANTA MIMS RN Service: Nursing Author Type: Registered Nurse Type: Nursing Progress Note Filed: 10/12/2024 10:30 Note Text: Report called to Raisa at [facility]. [facility] 10-11-2024 Note HNO ID: [id number] Author: JAKE MORALES RN Service: Care Management [...] for IV access. 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 Pt stated that discharge plan is to [...] before discharging. Current discharge plan [facility]. CM will follow for and assist with transitional discharge needs. Discharge packet on chart. PACF and transportation form completed. Pt will need transportation setup for discharge. Of note, pt admitted at [facility] main 08/20/24 until 09/03/24 for the [...] DATE: October 11, 2024 TIME: 2:19 PM [facility] 10-11-2024 Note HNO ID: [id number] Author: DIANDRA MARTINEZ MD Service: General Internal [...] Component Value Units Date/Time BACTERIAL CULTURE, URINE [[id number]] (Abnormal) Collected: 09/21/24914 Order Status: Completed Specimen: [...] Component Value Units Date/Time BACTERIAL CULTURE, URINE [[id number]] (Abnormal) Collected: 09/21/24914 Order Status: Completed Specimen: [...] Lovenox Hx acute (more content not included)... [facility] 10-10-2024 Note HNO ID: [id number] Author: DIANDRA MARTINEZ MD Service: General Internal [...] Component Value Units Date/Time BACTERIAL CULTURE, URINE [[id number]] (Abnormal) Collected: 09/21/24 0915 Order Status: Completed [...] Component Value Units Date/Time BACTERIAL CULTURE, URINE [[id number]] (Abnormal) Collected: 09/21/24 0915 Order Status: Completed [...] ordered Hypoglycemia protocol (more content not included)... [facility] 10-10-2024 Note HNO ID: [id number] Author: JAKE MORALES RN Service: Care Management Author Type: Registered Nurse Type: Care Mgt Initial Assessment Filed: 10/10/2024 14:33 Note Text: CARE MANAGEMENT: ASSESSMENT AND DISCHARGE PLAN SERVICE DATE: October 10, 2024 SERVICE TIME: 2:17 PM PCP: Fredrick Boland DO Primary Contact: Extended Emergency Contact Information Primary Emergency Contact: Ernst Evans Mobile Relation: Father Secondary Emergency Contact: Mary Evans [facility] Relation: Mother Admission Status: Observation Insurance Provider: CARLA MUÑOZ MEDICAID Discharge Planning requested by: Per Department Practice Potential Transition Plans To Be Determined Advance Directives Current Advance Directive: None Current Living Arrangements and Support Lives with: (At [facility].) Type of Residence: [facility] Facility Does the patient have to climb stairs at home?: No Care Facility Name: [facility]. Support: Parent, Family members How do you manage to accomplish the following: Independent: Ambulation, Bathe/Shower, Dress, Going to the bathroom Dependent: Meals/Meal Prep, Medication Management, Transportation to appointments/community Current Services/Equipment Current Post-Acute Service(s): None Discharge Planning Patient Goal(s): General wellness [place] Explained: Are you interested in bedside delivery of your medications? 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 Pt stated that discharge plan is to return to SNF, this RN requested that [facility] send return referral. Pt denies [...] transportation setup. Of note, pt admitted at [facility] main 08/20/24 until 09/03/24 for the [...] were you homeless or living in a mcc (including now)?: No Utilities In the past 12 months has the [employer], gas, oil, or water [employer] threatened to shut off services in your home?: No Social Information Financial Resources: Unemployed SIGNATURE: Jake Morales RN PATIENT NAME: Daly Evans DATE: October 10, 2024 TIME: 2:17 PM [facility] 10-10-2024 Note HNO ID: [id number] Author: CHARLEE GARCIA RN Service: PICC Team Author Type: Registered Nurse Type: Procedures Filed: 10/10/2024 08:37 Note Text: MIDLINE INSERTION PROCEDURE NOTE - PICC TEAM NURSES DATE OF PROCEDURE: 10/10/2024 TIME OF PROCEDURE: 0800 ORDERING PHYSICIAN: Alycia Rawls CNP Indications for line placement: Intravenous access Condition of line placement: Sterile Primary Proceduralist: Shawn Vasquez RN Rpg Programmer Analyst: Charlee Garcia RN Pre-procedure Review: ALLERGIES Allergen [...] with the procedure. Special equipment utilized [facility]. Patient/Surrogate Stated/Verified: Patient name, Date of [...] patients). Midline Catheter Placement: Brand: BARD Lot: [id number] Number of lumens: 1 Type of Midline: Power Injectable Midline Lumen size: 3 Guatemalan Placement Technique: Lidocaine: Yes, Lidocaine 1% Volume [...] or problems: Call Vascular Access Nurse on [facility] SIGNATURE: Charlee Garcia RN PATIENT NAME: Daly Evans DATE: October 10, 2024 TIME: 8:34 AM PAGER: Call [facility] 10-10-2024 Telephone encounter Note Scheduled. Message left for patient to confirm. Hospital will print at discharge. [facility] Work Phone: 10-10-2024 Miscellaneous Notes Scheduled. Message left for patient to confirm. Hospital will print at discharge. I see she is currently admitted to the hospital for accidental overdose. Please schedule her for follow-up with me after discharge to discuss recent lab work she had done at her initial consultation here. Martín Pendleton DO documented in this encounter [facility] 10-09-2024 Note HNO ID: [id number] Author: LETTY ARAUZ RDMS Service: Radiology Author [...] PATIENT PRESENTS WITH AN IMPLANTABLE OR ATTACHED REPAIRER KILN CAR: No RADIOLOGY DEPARTMENT: Ultrasound PERIPHERAL IV DATA: Not applicable SIGNED BY: Letty Arauz RDMS October 09, 2024 7:05 PM [facility] 10-09-2024 Telephone encounter Note I see she is currently admitted to the hospital for accidental overdose. Please schedule her for follow-up with me after discharge to discuss recent lab work she had done at her initial consultation here. Martín Pendleton DO [facility] Work Phone: 10-08-2024 Telephone encounter Note We were able to complete the virtual education visit as scheduled. [facility] 10-08-2024 Miscellaneous Notes We were able to [...] this morning his call back number is [phone] documented in this encounter [facility] 10-08-2024 Telephone encounter Note I returned her father's call and got voicemail at the number he asked me to call and left a message. I then tried to call his cell and got voicemail as well and left another message. [facility] 10-08-2024 Telephone encounter Note Patient father called in stated he would like a call back this morning concerning the phone visit scheduled at 10am this morning his call back number is [phone] [facility] 10-08-2024 Telephone encounter Note Images from the original note were not included. [facility] REFERRAL: Referring Physician: Dr. Peter Smith ([facility]) Reason for Referral: Surgical rehabilitation Referring Diagnosis: SMA occlusion, disconnected SBS, on TPN HISTORY: Daly Estrella Lover is a 39 year old single female from [place], [place] ([address], supportive father) with a history of bipolar disorder, severe panic attacks, polysubstance abuse (EtOH, marijuana - sober since at least Apr 2024), violent behavior under influence of EtOH (September 2021), smoking (quit Jul 2024), (2012), preDM, and lap maryellen (2018). She was transferred to [facility] 08/20/24 with a mural thrombus in [...] DC to SNF 09/03/24 and referred to [facility] Medical and Surgical Teams for [...] since 08/22/24 stopped approx 10/01/24 at the shelter. Tube Feeds: no Height: 172 cm (5' [...] Tuesday10/22/24, with labs in A30 at noon. [facility] 10-08-2024 Miscellaneous Notes Images from the original note were not included. [facility] REFERRAL: Referring Physician: Dr. Peter Smith ([facility]) Reason for Referral: Surgical rehabilitation Referring Diagnosis: SMA occlusion, disconnected SBS, on TPN HISTORY: Daly Estrella Lover is a 39 year old single female from [place], [place] ([address], supportive father) with a history of bipolar disorder, severe panic attacks, polysubstance abuse (EtOH, marijuana - sober since at least Apr 2024), violent behavior under influence of EtOH (September 2021), smoking (quit Jul 2024), (2012), preDM, and lap maryellen (2018). She was transferred to [facility] 08/20/24 with a mural thrombus in [...] DC to SNF 09/03/24 and referred to [facility] Medical and Surgical Teams for [...] since 08/22/24 stopped approx 10/01/24 at the shelter. Tube Feeds: no Height: 172 cm (5' [...] A30 at noon. documented in this encounter [facility] 10-03-2024 Telephone encounter Note Faxed. Irma Avila RN [facility] 10-03-2024 Miscellaneous Notes Faxed. Irma Avila RN [facility] called requesting office visit notes from yesterday be faxed to them at [phone] documented in this encounter [facility] 10-03-2024 Telephone encounter Note [facility] called requesting office visit notes from yesterday be faxed to them at [phone] [facility] Work Phone: 10-02-2024 History of Present illness Narrative Patient referred by Dr. 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 HPI: The patient is a 39-year-old female with past medical history as outlined below. Presented to the ED at [facility]. 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 Sent to [facility]. Surgical notes reviewed. Heterozygous factor V Leiden. Positive for lupus anticoagulant. JAK2 mutation negative PNH negative. Protein electrophoresis revealed a monoclonal spike quantitated at 0.21 g/dL. No monoclonal protein identified by immunofixation. Both kappa and lambda light chains elevated with an increased ratio of kappa to lambda. Immunoglobulins normal. Beta-2 microglobulin 3.0. Feeling better. At shelter. On TPN 12 hours via left arm PICC. Has somewhat of an appetite. Has been eating small amounts. Walking. Still has gilberto in abdominal incision. Tolerating Lovenox injections well. No unusual bleeding or unexplained bruising. PAST MEDICAL HISTORY Diagnosis Date Attempted suicide (HCC) polysubstance Bipolar depression (HCC) [facility] Gestational diabetes mellitus in ([facility]) Impaired fasting blood sugar 06/2015 a1c [...] abdomen is nondistended. Midline incision healing well. Goldvein in place. Left lower ostomy. Extremities: PICC [...] has follow-up scheduled with vascular medicine at [facility]. - Recheck protein C&S today. - Her weight is 90 kg. Check low molecular weight heparin assay. - Check anticardiolipin and antibeta 2 glycoprotein antibodies today. -Plan on rotating to Coumadin once more stable as outlined above. I spent a total of 60 minutes on the date of the service which included preparing to see the patient, xnpr-oj-lmlv patient care, completing clinical documentation, obtaining and/or reviewing separately obtained history, performing a medically appropriate examination, counseling and educating the patient/family/caregiver, ordering medications, tests, or procedures, communicating with other HCPs (not separately reported), and communicating results to the patient/family/caregiver. Martín Pendleton DO documented in this encounter [facility] 09-27-2024 Note . MICRO - Microbiology PROCEDURE: [...] Locations *1: This test was performed at: [facility], [address] [place] [address], [id number] , [facility] [place] 09-27-2024 Note . MICRO - Microbiology PROCEDURE: Catheter Tip Culture [*1] SOURCE: Catheter Tip BODY SITE: COLLECTED DATE/TIME: 09/23/2024 15:00 EDT RECEIVED DATE/TIME: 09/24/2024 14:17 EDT START DATE/TIME: 09/24/2024 14:17 EDT FREE TEXT SOURCE: picc FINAL REPORTS Final Report [] Verified Date/Time/Personnel: 09/27/2024 10:23 EDT Heavy Staphylococcus aureus PRELIMINARY REPORTS Preliminary Report [] Verified Date/Time/Personnel: 09/26/2024 09:43 EDT Heavy Staphylococcus aureus UADRA to follow Preliminary Report [] Verified Date/Time/Personnel: [...] Locations *1: This test was performed at: [facility], [address] [place] [address], [facility] , [facility] [place] 09-27-2024 Note . MICRO - Microbiology PROCEDURE: [...] Locations *1: This test was performed at: [facility], [address] [place] [address], [facility] , [facility] [place] 09-22-2024 Note . MICRO - Microbiology PROCEDURE: [...] Locations *1: This test was performed at: [address], [address] , [facility] [place] 09-20-2024 Note . MICRO - Microbiology PROCEDURE: [...] Locations *1: This test was performed at: [address], [address] , [facility] [place] 09-19-2024 History of Present illness Narrative Images from the original note were not included. Heart , Vascular and Thor[facility] DEPARTMENT OF VASCULAR SURGERY OUTPATIENT VISIT DATE [...] sooner if clinically indicated SIGNATURE: Angela Blackwood APRN.BED RUBBER PATIENT NAME: Daly Evans DATE: September 19, 2024 TIME: 1434 documented in this encounter [facility] 09-17-2024 Note Discharge Instructio ns Discharge Summary [address] [address] [id number] 09/17/2024 Patient: DALY EVANS Sex: Female : 1985 Age: 39y Thank you for visiting [facility]. You have been evaluated today by [...] by patient. Follow-up with: Maggie Putnam MD, [facility], Internal Medicine, Phone: [phone], [address] [place] [address]. Follow up in two days. Reason for referral: evaluation and treatment. Summary of care provided to follow-up provider and patient. 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. You have been evaluated today by [...] by patient. Follow-up with: Maggie Putnam MD, [facility], Internal Medicine, Phone: [phone], [address] [phone]. Follow up in two days. Reason for referral: evaluation and treatment. Summary of care provided to follow-up provider and patient. 2 of 2 [facility] 09-12-2024 Telephone encounter Note Called placed to Stefany at [facility]. Spoke to Stefany and she gave me the patient's room phone number. Tried calling the [phone] (pt's room phone number) but the pt did not answer and I was unable to leave a message. Will try again tomorrow. [facility] 09-12-2024 Miscellaneous Notes Called placed to Stefany at the pt's [facility]. Spoke to Stefany and she gave me the patient's room phone number. Tried calling the [phone] (pt's room phone number) but the pt did not answer and I was unable to leave a message. Will try again tomorrow. documented in this encounter [facility] 09-12-2024 Telephone encounter Note Scheduled with Stefany. [facility] Work Phone: 09-12-2024 Miscellaneous Notes Scheduled with Stefany. 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 Okay to schedule with either physician. Donna Hill LPN Received call from Stefany bazan [facility] stating Dr. Putnam would like patient to be seen by hematology, discharge papers showing blood clots. Patient had been seen at [facility] in vascular. Please advise Stefany at [phone] documented in this encounter [facility] 09-12-2024 Telephone encounter Note DX: Acute phase response (low PC/PS/ATIII, elevated Factor VII, CRP); looks like lupus anticoagulant will be positive (+mix, platelet neutralization, hex phase), aCL and B2GP abs normal PHN, ANDREW-2, UPEP normal SPEP with +M protein Had embolectomy in July. Okay to schedule with either physician. Donna Hill LPN [facility] 09-12-2024 Telephone encounter Note Received call from Stefany bazan [facility] stating Dr. Putnam would like patient to be seen by hematology, discharge papers showing blood clots. Patient had been seen at [facility] in vascular. Please advise Stefany at [phone] [facility] 09-11-2024 Telephone encounter Note Jose Cutler, Looks like this patient was discharged to a facility. Maybe Stefany knows of a way to reach the patient directly? Shi Vargas [facility] 09-11-2024 Miscellaneous Notes Jose Cutler, Looks like this patient was discharged to a facility. Maybe Stefany knows of a way to reach the patient directly? Shi Vargas Stefany from the [facility] is calling in stating that the patients discharge instructions state to consult with the center for gut rehab regarding patients short bowel syndrome. Stefany is asking for a call back at [phone]. documented in this encounter [facility] 09-11-2024 Telephone encounter Note Stefany from the [facility] is calling in stating that the patients discharge instructions state to consult with the center for gut rehab regarding patients short bowel syndrome. Stefany is asking for a call back at [phone]. [facility] 09-10-2024 Telephone encounter Note 2nd call placed, left a vm. Letter sent as well. Will close referral on 09/17 if I do not hear back. [facility] 09-10-2024 Miscellaneous Notes 2nd call placed, left a vm. Letter sent as well. Will close referral on 09/17 if I do not hear back. documented in this encounter [facility] 09-06-2024 Telephone encounter Note Called pt but was unable to leave vm due to vm box full. Tried calling her father Ernst and left him a vm to give our office a call back to begin referral for short bowel. [facility] 09-06-2024 Miscellaneous Notes Called pt but was unable to leave vm due to vm box full. Tried calling her father Ernst and left him a vm to give our office a call back to begin referral for short bowel. documented in this encounter [facility] 09-05-2024 Telephone encounter Note Triage please? Stefany from [facility] called for appt for patient with Dr Goncalves.Patient had surgery with Dr Palomares in Jul 2024 please advise? Thanks, [facility] 09-05-2024 Miscellaneous Notes Triage please? Stefany from [facility] called for appt for patient with Dr Goncalves.Patient had surgery with Dr Palomares in Jul 2024 please advise? Thanks, Reason for call: Stefany would like to schedule an appointment with Dr Goncalves for f/up Home and cell number [phone] Diagnosis-f/up Kev Cedeno documented in this encounter [facility] 09-05-2024 Telephone encounter Note Reason for call: Stefany would like to schedule an appointment with Dr Goncalves for f/up Home and cell number [phone] Diagnosis-f/up Kev Cedeno [facility] 09-03-2024 Telephone encounter Note Received referral from referral triage for short bowel. Will call the pt for intake once discharged. [facility] 09-03-2024 Miscellaneous Notes Received referral from referral triage for short bowel. Will call the pt for intake once discharged. documented in this encounter [facility] 08-29-2024 Telephone encounter Note Left multiple messages by phone sent my chart message. [facility] 08-29-2024 Telephone encounter Note ----- Message from Xochilt Gaston APRN.BED RUBBER sent at 08/08/2024 4:07 PM EST ----- Routing information can be restored upon returning to the encounter [facility] 08-29-2024 Miscellaneous Notes Left multiple messages by phone sent my chart message. ----- Message from Xochilt Gaston APRN.BED RUBBER sent at 08/08/2024 4:07 PM EST ----- Routing information can be restored upon returning to the encounter Line busy will need to try back. ----- Message from Xochilt Gaston APRN.BED RUBBER sent at 08/08/2024 4:07 PM EST ----- Routing information can be restored upon returning to the encounter Called and left message on patients voicemail to return call to the office and ask to speak with a triage nurse. Lauren Hull MA ----- Message from Xochilt Gaston APRN.BED RUBBER sent at 08/08/2024 4:07 PM EST ----- [...] diabetes range. No other concerns. Xochilt Gaston APRN.BED RUBBER documented in this encounter [facility] 08-29-2024 Telephone encounter Note Line busy will need to try back. [facility] 08-29-2024 Telephone encounter Note ----- Message from Xochilt Gaston APRN.BED RUBBER sent at 08/08/2024 4:07 PM EST ----- Routing information can be restored upon returning to the encounter [facility] 08-20-2024 History of Present illness Narrative Images from the original note were not included. Critical Care Transport Note Patient Name: Daly Evans Service Date: 08/20/24 Referring Physician: Hakeem Referring Facility: [facility] Accepting Physician: David Accepting Facility: [facility] SUBJECTIVE/CHIEF COMPLAINT: abdominal pain, nausea REASON [...] and vit D deficiency. She presented to [facility] early this AM for evaluation of [...] managing the patient requested transfer to the [facility] for tertiary and/or quaternary services unavailable at the referring facility. The physician managing the patient requested the [facility] Critical Care Transport Team transport and treat the patient for the purpose of tertiary care, evaluation, and management of her acute aortic mural thrombus with SMA occlusion condition(s). Air medical transport was requested to reduce the say-zj-jxefghek time, 19 minutes by air vs. approximately [...] HISTORY Diagnosis Date Attempted suicide ([facility]) polysubstance Bipolar depression ([facility]) [facility] Gestational diabetes mellitus in [...] SaO2 >/= 93% - Expedite transport to [facility] for further workup and care The transport was completed without significant incident or change in the patient's status. The patient was transported to the the [facility] by Rotor (Helicopter) for tertiary and/or quaternary evaluation and management of her Emergent Surgical condition(s). Upon arrival to the receiving facility, a twmv-sp-oxxo report was given to bedside nursing staff in [facility] and bedside medical team . Patient care [...] pain and the Cardiovascular impairment, Respiratory impairment, ASSOCIATE MARKETING MANAGER impairment, Shock, Cardiac Arrest, and Severe metabolic abnormality which the patient had and/or had a high probability of suddenly developing. SIGNATURE: Katelyn Villagran APRN.CNP Acute Care Nurse Practitioner [facility] Critical Care Transport Team documented in this encounter [facility] 08-20-2024 Procedure note Procedure(s): ARTERIAL LINE PLACEMENT [...] APRN.CNP PATIENT NAME: Daly Evans DATE: 08/20/24 [facility] 08-20-2024 Procedure note Procedure(s): ARTERIAL LINE PLACEMENT [...] Evans DATE: 08/20/24 documented in this encounter [facility] 08-16-2024 History of Present illness Narrative Chief [...] suicide (HCC) polysubstance Bipolar depression (HCC) [facility]te Gestational diabetes mellitus [...] Time: 3:37 PM documented in this encounter [facility] 08-10-2024 Telephone encounter Note Called and left message on patients voicemail to return call to the office and ask to speak with a triage nurse. Lauren Hull MA [facility] 08-08-2024 Telephone encounter Note ----- Message from Xocihlt Gaston APRN.JUANY sent at 08/08/2024 4:07 PM EST ----- Routing information can be restored upon returning to the encounter [facility] 08-08-2024 Telephone encounter Note Left message to return call Akiko Pettit MA [facility] 08-08-2024 Telephone encounter Note Please [...] range. No other concerns. Xochilt Gaston APRN.CNP [facility] 08-07-2024 Telephone encounter Note Lexapro and Zyprexa prescription was sent to the patient's pharmacy. [facility] 08-07-2024 Miscellaneous Notes Lexapro and Zyprexa prescription was sent to the patient's pharmacy. Appreciate the update. Glad her EKG was normal and she was able to come in to see you. Will send in her refills. Joes Tipton, We did Daly's EKG today and it looks great, completely normal. She asked me to let you know because you needed it for medication management. Thanks! documented in this encounter [facility] 08-07-2024 Telephone encounter Note Appreciate the update. Glad her EKG was normal and she was able to come in to see you. Will send in her refills. [facility] 08-07-2024 Telephone encounter Note Jose Tipton, We did Daly's EKG today and it looks great, completely normal. She asked me to let you know because you needed it for medication management. Thanks! [facility] 08-07-2024 History of Present illness [...] A1C - COMPREHENSIVE METABOLIC PANEL Xochilt Gaston APRN.BED RUBBER documented in this encounter [facility] 05-20-2024 Instructions Clayton Granados APRN.BED RUBBER - 05/20/2024 9:38 PM EST TREATMENT PLAN: Discontinue Lamictal and Trazodone and patient stopped taking them due to reporting lack of efficacy. 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 --You can also call Mobile Crisis at [phone]. -- You may call the department appointment line at [phone] to schedule your appointment. -- Please call my nurse at [phone] or send me a message in foodpanda / hellofood with any questions or concerns between appointments. documented in this encounter [facility] 05-18-2024 History of Present illness Narrative Images [...] visit. Either the patient or their legal territory sales representative has been informed of the [...] this at her earliest availability due to [facility] side effect profile of her current medications. [...] ago. Has not been taking the Lamictal. Kathleen that she forgot to take it and [...] suicide (HCC) polysubstance Bipolar depression (HCC) [facility] Camelia Whyte Gestational diabetes mellitus in Impaired [...] risk of side effects due to termite renewal inspector use of the combination of medication prescribed [...] which included preparing to see the patient, lgui-ex-ptsc patient care, completing clinical documentation, and counseling and educating the patient/family/caregiver, ordering medications/labs. ADD ON PSYCHOTHERAPY CODE : No SIGNATURE: Clayton Granados APRN.CNP PATIENT NAME: Daly Evans DATE: May 18, 2024 TIME: 2:07 PM documented in this encounter [facility] 03-03-2024 History of Present illness Narrative Patient did not log in for their follow up visit with the provider today. documented in this encounter [facility] 01-30-2024 Telephone encounter Note Tried calling patient no answer or vm available, sent Storefrontt message [facility] 01-30-2024 Miscellaneous Notes Tried calling patient no answer or vm available, sent Storefrontt message documented in this encounter [facility] 01-19-2024 History of Present illness Narrative Patient did not attend her follow up appointment with the provider today. She did not answer her phone when she was contacted prior to the appointment time. It appeared that she had confirmed her appointment today. documented in this encounter [facility] 12-30-2023 History of Present illness Narrative Patient sent a mychart requesting to reschedule the appointment right before the visit. Patient has been assisted in rescheduling this visit. documented in this encounter [facility] 12-12-2023 Telephone encounter Note Prescription Refill Information [...] Caba MA December 12, 2023 8:34 AM [facility] 12-12-2023 Telephone encounter Note See refill encounter [facility] 12-12-2023 Miscellaneous Notes See refill encounter documented in this encounter [facility] 12-12-2023 Miscellaneous Notes Prescription Refill Information The [...] Satish Baez LPN. documented in this encounter [facility] 09-02-2023 History of Present illness Narrative FOLLOW [...] visit. Either the patient or their legal territory sales representative has been informed of the [...] take 3 weeks off her job at [employer]. She is not having any luck in [...] this at her earliest availability due to [facility] side effect profile of her current medications. [...] which included preparing to see the patient, sacc-eg-gtem patient care, completing clinical documentation, obtaining and/or [...] TIME: 10:44 AM documented in this encounter [facility] 05-16-2023 History of Present illness Narrative FOLLOW [...] visit. Either the patient or their legal territory sales representative has been informed of the [...] helping in 2 weeks by sending a [employer] message. 2. Continue the rest of the [...] looking for a job. Has applied to [employer]. She is worried that the background check [...] suicide (HCC) polysubstance Bipolar depression (HCC) [facility] Cam[facility] Whyte Gestational diabetes mellitus [...] which included preparing to see the patient, vgzm-ck-tvyt patient care, completing clinical documentation, obtaining and/or [...] TIME: 4:03 PM documented in this encounter [facility] 04-18-2023 History of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 Problem Noted Date Resolved Date 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 Overview: + urine tox on 11/04/2017 documented as of this encounter (statuses as of 10/30/2021) [facility] History of Past illness Narrative* Problem Noted Date Resolved Date 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 Overview: + urine tox on 11/04/2017 documented as of this encounter (statuses as of 11/04/2021) [facility] History of Past illness Narrative* Problem Noted Date Resolved Date 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 Overview: + urine tox on 11/04/2017 documented as of this encounter (statuses as of 11/04/2021) [facility] History of Past illness Narrative* Problem Noted Date Resolved Date 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 Overview: + urine tox on 11/04/2017 documented as of this encounter (statuses as of 11/13/2021) [facility] History of Past illness Narrative* Problem Noted Date Resolved Date 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 Overview: + urine tox on 11/04/2017 documented as of this encounter (statuses as of 11/27/2021) [facility] History of Past illness Narrative* Problem Noted Date Resolved Date 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 Overview: + urine tox on 11/04/2017 documented as of this encounter (statuses as of 12/08/2021) [facility] History of Past illness Narrative* Problem Noted Date Resolved Date 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 Overview: + urine tox on 11/04/2017 documented as of this encounter (statuses as of 12/15/2021) [facility] History of Past illness Narrative* Problem Noted Date Resolved Date 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 Overview: + urine tox on 11/04/2017 documented as of this encounter (statuses as of 12/23/2021) [facility] History of Past illness Narrative* Problem Noted Date Resolved Date 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 Overview: + urine tox on 11/04/2017 documented as of this encounter (statuses as of 12/26/2021) [facility] History of Past illness Narrative* Problem Noted Date Resolved Date 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 Overview: + urine tox on 11/04/2017 documented as of this encounter (statuses as of 01/11/2022) [facility] History of Past illness Narrative* Problem Noted Date Resolved Date 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 Overview: + urine tox on 11/04/2017 documented as of this encounter (statuses as of 02/02/2022) [address]-2018 History of Past illness Narrative* Problem Noted Date Resolved Date 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 Overview: + urine tox on 11/04/2017 documented as of this encounter (statuses as of 02/02/2022) [facility] History of Past illness Narrative* Problem Noted Date Resolved Date 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 Overview: + urine tox on 11/04/2017 documented as of this encounter (statuses as of 02/12/2022) [address]-2018 History of Past illness Narrative* Problem Noted Date Resolved Date 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 Overview: + urine tox on 11/04/2017 documented as of this encounter (statuses as of 03/09/2022) [address]-2018 History of Past illness Narrative* Problem Noted Date Resolved Date 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 Overview: + urine tox on 11/04/2017 documented as of this encounter (statuses as of 03/29/2022) [facility] of [facility] illness Narrative* Problem Noted Date Resolved Date 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 Overview: + urine tox on 11/04/2017 documented as of this encounter (statuses as of 04/09/2022) [facility]2018 History of Past illness Narrative* Problem Noted Date Resolved Date 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 Overview: + urine tox on 11/04/2017 documented as of this encounter (statuses as of 05/10/2022) [facility]2018 History of Past illness Narrative* Problem Noted Date Resolved Date 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 Overview: + urine tox on 11/04/2017 documented as of this encounter (statuses as of 05/10/2022) [address]29-2018 History of Past illness Narrative* Problem Noted Date Resolved Date 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 Overview: + urine tox on 11/04/2017 documented as of this encounter (statuses as of 05/11/2022) [address]29-2018 History of Past illness Narrative* Problem Noted Date Resolved Date 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 Overview: + urine tox on 11/04/2017 documented as of this encounter (statuses as of 05/24/2022) [address]29-2018 History of Past illness Narrative* Problem Noted Date Resolved Date 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 Overview: + urine tox on 11/04/2017 documented as of this encounter (statuses as of 06/06/2022) [address]-2018 History of Past illness Narrative* Problem Noted Date Resolved Date 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 Overview: + urine tox on 11/04/2017 documented as of this encounter (statuses as of 07/02/2022) [address]29-2018 History of Past illness Narrative* Problem Noted Date Resolved Date 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 Overview: + urine tox on 11/04/2017 documented as of this encounter (statuses as of 07/06/2022) [facility]2018 History of Past illness Narrative* Problem Noted Date Resolved Date 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 Overview: + urine tox on 11/04/2017 documented as of this encounter (statuses as of 07/26/2022) [address]29-2018 History of Past illness Narrative* Problem Noted Date Resolved Date 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 Overview: + urine tox on 11/04/2017 documented as of this encounter (statuses as of 08/09/2022) [address]29-2018 History of Past illness Narrative* Problem Noted Date Resolved Date 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 Overview: + urine tox on 11/04/2017 documented as of this encounter (statuses as of 08/24/2022) [address]29-2018 History of Past illness Narrative* Problem Noted Date Resolved Date 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 Overview: + urine tox on 11/04/2017 documented as of this encounter (statuses as of 09/13/2022) [address]29-2018 History of Past illness Narrative* Problem Noted Date Resolved Date 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 Overview: + urine tox on 11/04/2017 documented as of this encounter (statuses as of 09/30/2022) [address]29-2018 History of Past illness Narrative* Problem Noted Date Resolved Date 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 Overview: + urine tox on 11/04/2017 documented as of this encounter (statuses as of 10/01/2022) [address]-2018 History of Past illness Narrative* Problem Noted Date Resolved Date 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 Overview: + urine tox on 11/04/2017 documented as of this encounter (statuses as of 10/04/2022) [facility]2018 History of Past illness Narrative* Problem Noted Date Resolved Date 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 Overview: + urine tox on 11/04/2017 documented as of this encounter (statuses as of 10/29/2022) [facility]2018 History of Past illness Narrative* Problem Noted Date Resolved Date 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 Overview: + urine tox on 11/04/2017 documented as of this encounter (statuses as of 12/24/2022) [address]-2018 History of Past illness Narrative* Problem Noted Date Diagnosed Date Resolved Date Methamphetamine abuse 11/22/20172018 Overview: + urine tox on 11/04/2017 documented as of this encounter (statuses as of 01/03/2023) [facility]2018 History of Past illness Narrative* Problem Noted Date Diagnosed Date Resolved Date Methamphetamine abuse 11/22/20172018 Overview: + urine tox on 11/04/2017 documented as of this encounter (statuses as of 01/04/2023) [facility]2018 History of Past illness Narrative* Problem Noted Date Diagnosed Date Resolved Date Methamphetamine abuse 11/22/20172018 Overview: + urine tox on 11/04/2017 documented as of this encounter (statuses as of 01/06/2023) [facility]2018 History of Past illness Narrative* Problem Noted Date Diagnosed Date Resolved Date Methamphetamine abuse 11/22/20172018 Overview: + urine tox on 11/04/2017 documented as of this encounter (statuses as of 02/25/2023) [facility]2018 History of Past illness Narrative* Problem Noted Date Diagnosed Date Resolved Date Methamphetamine abuse 11/22/20172018 Overview: + urine tox on 11/04/2017 documented as of this encounter (statuses as of 03/15/2023) [facility]2018 History of Past illness Narrative* Problem Noted Date Diagnosed Date Resolved Date Methamphetamine abuse 11/22/20172018 Overview: + urine tox on 11/04/2017 documented as of this encounter (statuses as of 03/15/2023) [facility]2018 History of Past illness Narrative* Problem Noted Date Diagnosed Date Resolved Date Methamphetamine abuse 11/22/20172018 Overview: + urine tox on 11/04/2017 documented as of this encounter (statuses as of 04/22/2023) [address]-2018 History of Past illness Narrative* Problem Noted Date Diagnosed Date Resolved Date Methamphetamine abuse 11/22/20172018 Overview: + urine tox on 11/04/2017 documented as of this encounter (statuses as of 05/17/2023) [facility]2018 History of Past illness Narrative* Problem Noted Date Diagnosed Date Resolved Date Methamphetamine abuse 11/22/20172018 Overview: + urine tox on 11/04/2017 documented as of this encounter (statuses as of 05/24/2023) [address]-2018 History of Past illness Narrative* Problem Noted Date Diagnosed Date Resolved Date Methamphetamine abuse 11/22/20172018 Overview: + urine tox on 11/04/2017 documented as of this encounter (statuses as of 2023) [facility]2018 History of Past illness Narrative* Problem Noted Date Diagnosed Date Resolved Date Methamphetamine abuse 11/22/20172018 Overview: + urine tox on 11/04/2017 documented as of this encounter (statuses as of 09/28/2023) [facility] Diagnosis Panic attacks Panic disorder without agoraphobia [facility]* Diagnosis Bipolar affective disorder, current episode mixed, current episode severity unspecified ([facility])- Primary Alcohol abuse Alcohol abuse, unspecified Depressive disorder Depressive disorder, not elsewhere classified Panic attacks Panic disorder without agoraphobia ADD (attention deficit disorder) without hyperactivity Attention deficit disorder without mention of hyperactivity Legal intervention, bystander injured, initial encounter documented in this encounter [facility] note* Diagnosis ELIJAH (generalized anxiety disorder)- Primary Generalized anxiety disorder Bipolar 2 disorder (HCC) Other bipolar disorders documented [facility] this encounter [facility]* Diagnosis ADD (attention deficit disorder) without hyperactivity Attention deficit disorder without mention of hyperactivity [facility] Diagnosis Iron deficiency anemia, unspecified iron deficiency anemia type [facility] Diagnosis ELIJAH (generalized anxiety disorder)- Primary Generalized anxiety disorder Bipolar 2 disorder (HCC) Other bipolar disorders documented [facility] this encounter [facility]* Diagnosis ELIJAH (generalized anxiety disorder) Generalized anxiety disorder [facility] Diagnosis ADD (attention deficit disorder) without hyperactivity Attention deficit disorder without mention of hyperactivity [facility] this [facility]* Diagnosis ELIJAH (generalized anxiety disorder)- Primary Generalized anxiety disorder Bipolar 2 disorder (HCC) Other bipolar disorders Panic disorder without agoraphobia [facility]* Diagnosis ELIJAH (generalized anxiety disorder) Generalized anxiety disorder [facility]* Diagnosis Bipolar 2 disorder (HCC)- Primary Other bipolar disorders Panic disorder without agoraphobia [facility] this encounter [facility]* Diagnosis Bilateral hand pain- Primary Pain in limb Foot pain, bilateral Pain in limb Fatigue, unspecified type Myalgia Mylagia and myositis, unspecified Multiple joint pain Pain in joint, multiple sites Iron deficiency Iron deficiency anemia, unspecified [facility] Diagnosis ELIJAH (generalized anxiety disorder) Generalized anxiety disorder [facility]* Diagnosis Panic disorder without agoraphobia- Primary Bipolar 2 disorder (HCC) Other bipolar disorders [facility] Diagnosis Bilateral hand pain- Primary Pain in limb Elevated C-reactive protein (CRP) Bipolar affective disorder, current episode mixed, current episode severity unspecified ([facility]) documented in this encounter [facility] note* Diagnosis NO SHOW- Primary documented in this encounter [facility] note* Diagnosis Muscle spasm of back Other symptoms referable to back Acute bilateral thoracic back pain documented [facility] this encounter [facility]* Diagnosis Encounter for long-term (current) use of medications- Primary Encounter for long-term (current) use of other medications Panic disorder without agoraphobia Bipolar 2 disorder (HCC) Other bipolar disorders documented in this encounter [facility] note* Diagnosis GERD without esophagitis Esophageal reflux [facility] Diagnosis Marijuana use- Primary Cannabis abuse, unspecified documented in this encounter [facility] note* Diagnosis Panic disorder without agoraphobia- Primary Bipolar 2 disorder (HCC) Other bipolar disorders Marijuana use Cannabis abuse, unspecified [facility] this encounter [facility]* Diagnosis NO SHOW- Primary documented in this encounter [facility] note* Diagnosis Bipolar II disorder (HCC)- Primary Other bipolar disorders documented in this encounter [facility] note* Diagnosis Bipolar 2 disorder (HCC)- Primary Other bipolar disorders Panic disorder without agoraphobia Marijuana use Cannabis abuse, unspecified [facility] Diagnosis History of marijuana use- Primary Bipolar II disorder (HCC) Other bipolar disorders Panic disorder without agoraphobia documented in this encounter [facility] note* Diagnosis Encounter for long-term (current) use of medications- Primary Encounter for long-term (current) use of other medications ELIJAH (generalized anxiety disorder) Generalized anxiety disorder Panic attacks Panic disorder without agoraphobia Bipolar affective disorder, current episode mixed, current episode severity unspecified (HCC) documented in this encounter [facility] note* Diagnosis ELIJAH (generalized anxiety disorder)- Primary Generalized anxiety disorder Panic attacks Panic disorder without agoraphobia Bipolar II disorder (HCC) Other bipolar disorders Occasional use of marijuana [facility] Diagnosis Encounter for long-term (current) use of medications- Primary Encounter for long-term (current) use of other medications ELIJAH (generalized anxiety disorder) Generalized anxiety disorder Bipolar II disorder (HCC) Other bipolar disorders Panic disorder without agoraphobia documented in this encounter [facility] note* Diagnosis Bipolar II disorder (HCC)- Primary Other bipolar disorders Encounter for long-term (current) use of medications Encounter for long-term (current) use of other medications Panic disorder without agoraphobia History of marijuana use ELIJAH (generalized anxiety disorder) Generalized anxiety disorder [facility]* Diagnosis GERD without esophagitis Esophageal reflux documented [facility] this encounter [facility]* Diagnosis Encounter for screening mammogram for breast cancer [facility] Diagnosis APPOINTMENT CANCELLED- Primary [facility]* Diagnosis NO SHOW- Primary [facility] Diagnosis Acute pain of left knee [facility] Diagnosis ELIJAH (generalized anxiety disorder)- Primary Generalized anxiety disorder Marijuana use Cannabis abuse, unspecified Panic attacks Panic disorder without agoraphobia [facility]* Diagnosis ELIJAH (generalized anxiety disorder)- Primary Generalized anxiety disorder Panic attacks Panic disorder without agoraphobia Insomnia due to other mental disorder Bipolar II disorder (HCC) Other bipolar disorders Encounter for long-term (current) use of medications Encounter for long-term (current) use of other medications History of marijuana use Psychosocial stressors Other psychological or physical stress, not elsewhere classified [facility] Diagnosis Medication management- Primary Encounter for long-term (current) use of other medications Hypokalemia Hypopotassemia Low hemoglobin Anemia, unspecified Anemia, unspecified type Elevated hemoglobin A1c Other abnormal blood chemistry [facility] this encounter [facility]* Diagnosis Productive cough- Primary Cough Eczema, unspecified type [facility]* Diagnosis Anemia, unspecified type- Primary [facility]* Diagnosis 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 [facility] Diagnosis Encounter for post surgical wound check- Primary Encounter for staple removal Encounter for removal of sutures Arterial occlusion Embolism and thrombosis of unspecified artery Acute lower limb ischemia longterm (current) use of aspirin longterm current use of anticoagulant Long-term (current) use of anticoagulants [facility]* Diagnosis Aortic thrombus (HCC)- Primary Embolism and thrombosis of thoracic aorta [facility] Diagnosis Abnormal serum protein electrophoresis- Primary Other nonspecific findings on examination of blood Antiphospholipid antibody syndrome (HCC) Primary hypercoagulable state Superior mesenteric artery thrombosis (HCC) Acute vascular insufficiency of intestine [facility] Diagnosis 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 Disorder of artery or arteriole Unspecified disorders of arteries and arterioles documented [facility] this encounter [facility]* Diagnosis On total parenteral nutrition (TPN)- Primary Other specified conditions influencing health status [facility] this encounter [facility]* Diagnosis 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 [facility]* Diagnosis High output ileostomy (HCC)- Primary [...] influencing health status [facility] Diagnosis High output ileostomy (HCC)- Primary [...] Other postprocedural status [facility] Diagnosis High output ileostomy (HCC)- Primary [...] Other postprocedural status [facility] this encounter [facility]* Diagnosis High output ileostomy (HCC)- Primary [...] other mental disorder [facility] Diagnosis High output ileostomy (HCC)- Primary [...] use of anticoagulants [facility]* Diagnosis High output ileostomy (HCC)- Primary [...] of lower extremity [facility]* Diagnosis High output ileostomy (HCC)- Primary [...] of vascular catheter [facility]* Diagnosis High output ileostomy (HCC)- Primary [...] for disability examination [facility] Diagnosis High output ileostomy (HCC)- Primary [...] hyponatremia Hypokalemia Hypopotassemia documented [facility] this encounter [facility]* Diagnosis High output ileostomy (HCC)- Primary [...] disorder of intestines [facility] Diagnosis High output ileostomy (HCC)- Primary [...] of lower extremity [facility] this [facility]* Diagnosis High output ileostomy (HCC)- Primary [...] laterality (HCC)- Primary documented in this encounter [facility] for referral (narrative)* Outpatient Procedure (Routine) - Pending Review Specialty Diagnoses / Procedures Referred By Contac t Referred To [facility] Diagnoses ELIJAH (generalized anxiety disorder) Procedures ECG COMPLETE ECG ROUTINE ECG W/LEAST 12 LDS W/I&R Clayton Granados APRN.BED RUBBER [address] [place] [address] [facility] [address] [place] [address] Referral ID Status Reason Start Date Expiration Date Visits Requested Visits Authorized [id number] Pending Review Auto-Generat ed Referral 12/24/2021 12/24/2022 1 1 [facility] for referral (narrative)* Diagnostic Procedure Only (Routine) - Pending Review Specialty Diagnoses / Procedures Referred By Contac t Referred To Contact XR IMAGING Diagnoses Foot pain, bilateral Procedures XR FOOT GENERAL 3V AP/LAT/OBL BILATERAL RADEX FOOT COMPLETE MINIMUM 3 VIEWS Fredrick Boland DO [address] [place] [address] X[facility] Imaging Referral ID Status Reason Start Date Expiration Date Visits Requested Visits Authorized [id number] Pending Review Auto-Generat ed Referral 02/02/2022 03/04/2023 1 1 * Diagnostic Procedure Only (Routine) - Pending Review Specialty Diagnoses / Procedures Referred By Contac t Referred To Contact XR IMAGING Diagnoses Bilateral hand pain Procedures XR HAND GENERAL 3V PA/LAT/OBL BILATERAL RADEX HAND MINIMUM 3 VIEWS Fredrick Boland, DO [address] [place] [address] [facility] Referral ID Status Reason Start Date Expiration Date Visits Requested Visits Authorized [id number] Pending Review Auto-Generat ed Referral 02/02/2022 03/04/2023 1 1 [facility] for referral (narrative)* Outpatient Procedure (Routine) - Pending Review Specialty Diagnoses / Procedures Referred By Contac t Referred To [facility] Diagnoses Encounter for long-term (current) use of medications Procedures ECG COMPLETE ECG ROUTINE ECG W/LEAST 12 LDS W/I&R Clayton Granados, RN HOSPICE.BED RUBBER [address] [place] [address] [facility] [address] [place] [address] Referral ID Status Reason Start Date Expiration Date Visits Requested Visits Authorized [id number] Pending Review Auto-Generat ed Referral 03/14/2023 03/13/2024 1 1 [facility] for referral (narrative)* Diagnostic Procedure Only (Routine) - Pending Review Specialty Diagnoses / Procedures Referred By Contac t Referred To Contact BR IMAGING Diagnoses Encounter for screening mammogram for breast cancer Procedures MILO SCREENING SCREENING MAMMOGRAPHY BI 2-VIEW BREAST INC CAD Fredrick Boland DO [address] [place] [address] [facility] [address] [place] [address] Referral ID Status Reason Start Date Expiration Date Visits Requested Visits Authorized [id number] Pending Review Auto-Generat ed Referral 10/19/2023 11/17/2024 1 1 [facility] for referral (narrative)* Diagnostic Procedure Only (Routine) - Closed Specialty Diagnoses / Procedures Referred By Contac t Referred To Contact XR IMAGING Diagnoses Acute pain of left knee Procedures XR KNEE GENERAL 4V AP BOTH/PA BOTH/LAT/MERC LT KNEE AP-WGT/LAT/MERCHANT Herbert Izquierdo MD [address] [place] [address] [place] [address] Referral ID Status Reason Start Date Expiration Date V isits Requested Visits Authorized Closed Auto-Generate d Referral 03/12/2021 04/11/2022 1 1 [facility] for referral (narrative)* Outpatient Procedure (Routine) - New Request Specialty Diagnoses / Procedures Referred By Matias vaughan Referred To Contact [facility] [place] Diagnoses Encounter for long-term (current) use of medications Procedures ECG COMPLETE ECG ROUTINE ECG W/LEAST 12 LDS W/I&R Clayton Granados, RN HOSPICE.BED RUBBER [address] [place] [address] [facility] [address] [place] [address] Referral ID Status Reason Start Date Expiration Date Visits Requested Visits Authorized [id number] New Request Auto-Generat ed Referral 4 05/18/2025 1 1 [facility] for visit Narrative* Diagnostic Procedure Only (Routine) - Closed Specialty Diagnoses / Procedures Referred By Matias vaughan Referred To Contact XR IMAGING Diagnoses Acute pain of left knee Procedures XR KNEE GENERAL 4V AP BOTH/PA BOTH/LAT/MERC LT KNEE AP-WGT/LAT/MERCHANT Herbert Izquierdo MD [address] [place] [address] [place] [id number] Referral ID Status Reason Start Date Expiration Date V isits Requested Visits Authorized Closed Auto-Generate d Referral 03/12/2021 04/11/2022 1 1 [facility] Summary Purpose Family History No Family History [...] Documents on File Type Date 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 DATE CREATED AUTHOR AUTHOR'S ORGANIZ ATION 10/07/2022 [facility] DATE CREATED AUTHOR AUTHOR'S ORGANIZ ATION 10/07/2022 [facility] DATE CREATED AUTHOR AUTHOR'S ORGANIZ ATION 12/08/2022 [facility] [facility] DATE CREATED AUTHOR AUTHOR'S ORGANIZ ATION 09/30/2024 [facility] DATE CREATED AUTHOR AUTHOR'S ORGANIZ ATION 10/30/2024 [facility] DATE CREATED AUTHOR AUTHOR'S ORGANIZ ATION 11/04/2024 [facility] DATE CREATED AUTHOR AUTHOR'S ORGANIZ ATION 03/29/2025 [facility] DATE CREATED AUTHOR AUTHOR'S ORGANIZ ATION 04/23/2025 [facility] DATE CREATED AUTHOR AUTHOR'S ORGANIZ ATION 05/03/2025 [facility] DATE CREATED AUTHOR AUTHOR'S ORGANIZ ATION 05/08/2025 [facility] Source Comments (unrecognize d section and content) In the event this informatio n is protected by the Federal Confidentiality of Alcohol and Drug Abuse Patient Records regulations: The Federal rules restrict any use of the information to criminally investigate or prosecute any alcohol or drug abuse patient.[facility] the event this information is protected by the Federal Confidentiality of Alcohol and Drug Abuse Patient Records regulations: The Federal rules restrict any use of the information to criminally investigate or prosecute any alcohol or drug abuse patient.[facility]In the event this information is protected by the Federal Confidentiality of Alcohol and Drug Abuse Patient Records regulations: The Federal rules restrict any use of the information to criminally investigate or prosecute any alcohol or drug abuse patient.[facility]In the event this information is protected by the Federal Confidentiality of Alcohol and Drug Abuse Patient Records regulations: The Federal rules restrict any use of the information to criminally investigate or prosecute any alcohol or drug abuse patient.[facility] HealthIn the event this information is protected by the Federal Confidentiality of Alcohol and Drug Abuse Patient Records regulations: The Federal rules restrict any use of the information to criminally investigate or prosecute any alcohol or drug abuse patient.[facility] HealthIn the event this information is protected by the Federal Confidentiality of Alcohol and Drug Abuse Patient Records regulations: The Federal rules restrict any use of the information to criminally investigate or prosecute any alcohol or drug abuse patient.[facility] HealthIn the event this information is protected by the Federal Confidentiality of Alcohol and Drug Abuse Patient Records regulations: The Federal rules restrict any use of the information to criminally investigate or prosecute any alcohol or drug abuse patient.[facility] HealthIn the event this information is protected by the Federal Confidentiality of Alcohol and Drug Abuse Patient Records regulations: The Federal rules restrict any use of the information to criminally investigate or prosecute any alcohol or drug abuse patient.[facility] HealthIn the event this information is protected by the Federal Confidentiality of Alcohol and Drug Abuse Patient Records regulations: The Federal rules restrict any use of the information to criminally investigate or prosecute any alcohol or drug abuse patient.[facility]In the event this information is protected by the Federal Confidentiality of Alcohol and Drug Abuse Patient Records regulations: The Federal rules restrict any use of the information to criminally investigate or prosecute any alcohol or drug abuse patient.[facility]In the event this information is protected by the Federal Confidentiality of Alcohol and Drug Abuse Patient Records regulations: The Federal rules restrict any use of the information to criminally investigate or prosecute any alcohol or drug abuse patient.[facility]In the event this information is protected by the Federal Confidentiality of Alcohol and Drug Abuse Patient Records regulations: The Federal rules restrict any use of the information to criminally investigate or prosecute any alcohol or drug abuse patient.[facility]In the event this information is protected by the Federal Confidentiality of Alcohol and Drug Abuse Patient Records regulations: The Federal rules restrict any use of the information to criminally investigate or prosecute any alcohol or drug abuse patient.[facility] HealthIn the event this information is protected by the Federal Confidentiality of Alcohol and Drug Abuse Patient Records regulations: The Federal rules restrict any use of the information to criminally investigate or prosecute any alcohol or drug abuse patient.[facility]In the event this information is protected by the Federal Confidentiality of Alcohol and Drug Abuse Patient Records regulations: The Federal rules restrict any use of the information to criminally investigate or prosecute any alcohol or drug abuse patient.[facility] HealthIn the event this information is protected by the Federal Confidentiality of Alcohol and Drug Abuse Patient Records regulations: The Federal rules restrict any use of the information to criminally investigate or prosecute any alcohol or drug abuse patient.[facility]In the event this information is protected by the Federal Confidentiality of Alcohol and Drug Abuse Patient Records regulations: The Federal rules restrict any use of the information to criminally investigate or prosecute any alcohol or drug abuse patient.[facility]In the event this information is protected by the Federal Confidentiality of Alcohol and Drug Abuse Patient Records regulations: The Federal rules restrict any use of the information to criminally investigate or prosecute any alcohol or drug abuse patient.[facility]In the event this information is protected by the Federal Confidentiality of Alcohol and Drug Abuse Patient Records regulations: The Federal rules restrict any use of the information to criminally investigate or prosecute any alcohol or drug abuse patient.[facility]In the event this information is protected by the Federal Confidentiality of Alcohol and Drug Abuse Patient Records regulations: The Federal rules restrict any use of the information to criminally investigate or prosecute any alcohol or drug abuse patient.[facility] HealthIn the event this information is protected by the Federal Confidentiality of Alcohol and Drug Abuse Patient Records regulations: The Federal rules restrict any use of the information to criminally investigate or prosecute any alcohol or drug abuse patient.[facility]In the event this information is protected by the Federal Confidentiality of Alcohol and Drug Abuse Patient Records regulations: The Federal rules restrict any use of the information to criminally investigate or prosecute any alcohol or drug abuse patient.[facility]In the event this information is protected by the Federal Confidentiality of Alcohol and Drug Abuse Patient Records regulations: The Federal rules restrict any use of the information to criminally investigate or prosecute any alcohol or drug abuse patient.[facility]In the event this information is protected by the Federal Confidentiality of Alcohol and Drug Abuse Patient Records regulations: The Federal rules restrict any use of the information to criminally investigate or prosecute any alcohol or drug abuse patient.[facility]In the event this information is protected by the Federal Confidentiality of Alcohol and Drug Abuse Patient Records regulations: The Federal rules restrict any use of the information to criminally investigate or prosecute any alcohol or drug abuse patient.[facility]In the event this information is protected by the Federal Confidentiality of Alcohol and Drug Abuse Patient Records regulations: The Federal rules restrict any use of the information to criminally investigate or prosecute any alcohol or drug abuse patient.[facility]In the event this information is protected by the Federal Confidentiality of Alcohol and Drug Abuse Patient Records regulations: The Federal rules restrict any use of the information to criminally investigate or prosecute any alcohol or drug abuse patient.[facility]In the event this information is protected by the Federal Confidentiality of Alcohol and Drug Abuse Patient Records regulations: The Federal rules restrict any use of the information to criminally investigate or prosecute any alcohol or drug abuse patient.[facility]In the event this information is protected by the Federal Confidentiality of Alcohol and Drug Abuse Patient Records regulations: The Federal rules restrict any use of the information to criminally investigate or prosecute any alcohol or drug abuse patient.[facility]In the event this information is protected by the Federal Confidentiality of Alcohol and Drug Abuse Patient Records regulations: The Federal rules restrict any use of the information to criminally investigate or prosecute any alcohol or drug abuse patient.[facility]In the event this information is protected by the Federal Confidentiality of Alcohol and Drug Abuse Patient Records regulations: The Federal rules restrict any use of the information to criminally investigate or prosecute any alcohol or drug abuse patient.[facility]In the event this information is protected by the Federal Confidentiality of Alcohol and Drug Abuse Patient Records regulations: The Federal rules restrict any use of the information to criminally investigate or prosecute any alcohol or drug abuse patient.[facility]In the event this information is protected by the Federal Confidentiality of Alcohol and Drug Abuse Patient Records regulations: The Federal rules restrict any use of the information to criminally investigate or prosecute any alcohol or drug abuse patient.[facility]In the event this information is protected by the Federal Confidentiality of Alcohol and Drug Abuse Patient Records regulations: The Federal rules restrict any use of the information to criminally investigate or prosecute any alcohol or drug abuse patient.[facility]In the event this information is protected by the Federal Confidentiality of Alcohol and Drug Abuse Patient Records regulations: The Federal rules restrict any use of the information to criminally investigate or prosecute any alcohol or drug abuse patient.[facility]In the event this information is protected by the Federal Confidentiality of Alcohol and Drug Abuse Patient Records regulations: The Federal rules restrict any use of the information to criminally investigate or prosecute any alcohol or drug abuse patient.[facility]In the event this information is protected by the Federal Confidentiality of Alcohol and Drug Abuse Patient Records regulations: The Federal rules restrict any use of the information to criminally investigate or prosecute any alcohol or drug abuse patient.[facility]In the event this information is protected by the Federal Confidentiality of Alcohol and Drug Abuse Patient Records regulations: The Federal rules restrict any use of the information to criminally investigate or prosecute any alcohol or drug abuse patient.[facility]In the event this information is protected by the Federal Confidentiality of Alcohol and Drug Abuse Patient Records regulations: The Federal rules restrict any use of the information to criminally investigate or prosecute any alcohol or drug abuse patient.[facility]In the event this information is protected by the Federal Confidentiality of Alcohol and Drug Abuse Patient Records regulations: The Federal rules restrict any use of the information to criminally investigate or prosecute any alcohol or drug abuse patient.[facility]In the event this information is protected by the Federal Confidentiality of Alcohol and Drug Abuse Patient Records regulations: The Federal rules restrict any use of the information to criminally investigate or prosecute any alcohol or drug abuse patient.[facility]In the event this information is protected by the Federal Confidentiality of Alcohol and Drug Abuse Patient Records regulations: The Federal rules restrict any use of the information to criminally investigate or prosecute any alcohol or drug abuse patient.[facility]In the event this information is protected by the Federal Confidentiality of Alcohol and Drug Abuse Patient Records regulations: The Federal rules restrict any use of the information to criminally investigate or prosecute any alcohol or drug abuse patient.[facility]In the event this information is protected by the Federal Confidentiality of Alcohol and Drug Abuse Patient Records regulations: The Federal rules restrict any use of the information to criminally investigate or prosecute any alcohol or drug abuse patient.[facility]In the event this information is protected by the Federal Confidentiality of Alcohol and Drug Abuse Patient Records regulations: The Federal rules restrict any use of the information to criminally investigate or prosecute any alcohol or drug abuse patient.[facility]In the event this information is protected by the Federal Confidentiality of Alcohol and Drug Abuse Patient Records regulations: The Federal rules restrict any use of the information to criminally investigate or prosecute any alcohol or drug abuse patient.[facility]In the event this information is protected by the Federal Confidentiality of Alcohol and Drug Abuse Patient Records regulations: The Federal rules restrict any use of the information to criminally investigate or prosecute any alcohol or drug abuse patient.[facility]In the event this information is protected by the Federal Confidentiality of Alcohol and Drug Abuse Patient Records regulations: The Federal rules restrict any use of the information to criminally investigate or prosecute any alcohol or drug abuse patient.[facility]In the event this information is protected by the Federal Confidentiality of Alcohol and Drug Abuse Patient Records regulations: The Federal rules restrict any use of the information to criminally investigate or prosecute any alcohol or drug abuse patient.[facility]In the event this information is protected by the Federal Confidentiality of Alcohol and Drug Abuse Patient Records regulations: The Federal rules restrict any use of the information to criminally investigate or prosecute any alcohol or drug abuse patient.[facility]In the event this information is protected by the Federal Confidentiality of Alcohol and Drug Abuse Patient Records regulations: The Federal rules restrict any use of the information to criminally investigate or prosecute any alcohol or drug abuse patient.[facility]In the event this information is protected by the Federal Confidentiality of Alcohol and Drug Abuse Patient Records regulations: The Federal rules restrict any use of the information to criminally investigate or prosecute any alcohol or drug abuse patient.[facility]In the event this information is protected by the Federal Confidentiality of Alcohol and Drug Abuse Patient Records regulations: The Federal rules restrict any use of the information to criminally investigate or prosecute any alcohol or drug abuse patient.[facility]In the event this information is protected by the Federal Confidentiality of Alcohol and Drug Abuse Patient Records regulations: The Federal rules restrict any use of the information to criminally investigate or prosecute any alcohol or drug abuse patient.[facility]In the event this information is protected by the Federal Confidentiality of Alcohol and Drug Abuse Patient Records regulations: The Federal rules restrict any use of the information to criminally investigate or prosecute any alcohol or drug abuse patient.[facility]In the event this information is protected by the Federal Confidentiality of Alcohol and Drug Abuse Patient Records regulations: The Federal rules restrict any use of the information to criminally investigate or prosecute any alcohol or drug abuse patient.[facility]In the event this information is protected by the Federal Confidentiality of Alcohol and Drug Abuse Patient Records regulations: The Federal rules restrict any use of the information to criminally investigate or prosecute any alcohol or drug abuse patient.[facility]In the event this information is protected by the Federal Confidentiality of Alcohol and Drug Abuse Patient Records regulations: The Federal rules restrict any use of the information to criminally investigate or prosecute any alcohol or drug abuse patient.[facility]In the event this information is protected by the Federal Confidentiality of Alcohol and Drug Abuse Patient Records regulations: The Federal rules restrict any use of the information to criminally investigate or prosecute any alcohol or drug abuse patient.[facility]In the event this information is protected by the Federal Confidentiality of Alcohol and Drug Abuse Patient Records regulations: The Federal rules restrict any use of the information to criminally investigate or prosecute any alcohol or drug abuse patient.[facility]In the event this information is protected by the Federal Confidentiality of Alcohol and Drug Abuse Patient Records regulations: The Federal rules restrict any use of the information to criminally investigate or prosecute any alcohol or drug abuse patient.[facility]In the event this information is protected by the Federal Confidentiality of Alcohol and Drug Abuse Patient Records regulations: The Federal rules restrict any use of the information to criminally investigate or prosecute any alcohol or drug abuse patient.[facility]In the event this information is protected by the Federal Confidentiality of Alcohol and Drug Abuse Patient Records regulations: The Federal rules restrict any use of the information to criminally investigate or prosecute any alcohol or drug abuse patient.[facility]In the event this information is protected by the Federal Confidentiality of Alcohol and Drug Abuse Patient Records regulations: The Federal rules restrict any use of the information to criminally investigate or prosecute any alcohol or drug abuse patient.[facility]In the event this information is protected by the Federal Confidentiality of Alcohol and Drug Abuse Patient Records regulations: The Federal rules restrict any use of the information to criminally investigate or prosecute any alcohol or drug abuse patient.[facility]In the event this information is protected by the Federal Confidentiality of Alcohol and Drug Abuse Patient Records regulations: The Federal rules restrict any use of the information to criminally investigate or prosecute any alcohol or drug abuse patient.[facility]In the event this information is protected by the Federal Confidentiality of Alcohol and Drug Abuse Patient Records regulations: The Federal rules restrict any use of the information to criminally investigate or prosecute any alcohol or drug abuse patient.[facility]In the event this information is protected by the Federal Confidentiality of Alcohol and Drug Abuse Patient Records regulations: The Federal rules restrict any use of the information to criminally investigate or prosecute any alcohol or drug abuse patient.[facility]In the event this information is protected by the Federal Confidentiality of Alcohol and Drug Abuse Patient Records regulations: The Federal rules restrict any use of the information to criminally investigate or prosecute any alcohol or drug abuse patient.[facility]In the event this information is protected by the Federal Confidentiality of Alcohol and Drug Abuse Patient Records regulations: The Federal rules restrict any use of the information to criminally investigate or prosecute any alcohol or drug abuse patient.[facility]In the event this information is protected by the Federal Confidentiality of Alcohol and Drug Abuse Patient Records regulations: The Federal rules restrict any use of the information to criminally investigate or prosecute any alcohol or drug abuse patient.[facility]In the event this information is protected by the Federal Confidentiality of Alcohol and Drug Abuse Patient Records regulations: The Federal rules restrict any use of the information to criminally investigate or prosecute any alcohol or drug abuse patient.[facility]In the event this information is protected by the Federal Confidentiality of Alcohol and Drug Abuse Patient Records regulations: The Federal rules restrict any use of the information to criminally investigate or prosecute any alcohol or drug abuse patient.[facility]In the event this information is protected by the Federal Confidentiality of Alcohol and Drug Abuse Patient Records regulations: The Federal rules restrict any use of the information to criminally investigate or prosecute any alcohol or drug abuse patient.[facility]In the event this information is protected by the Federal Confidentiality of Alcohol and Drug Abuse Patient Records regulations: The Federal rules restrict any use of the information to criminally investigate or prosecute any alcohol or drug abuse patient.[facility]In the event this information is protected by the Federal Confidentiality of Alcohol and Drug Abuse Patient Records regulations: The Federal rules restrict any use of the information to criminally investigate or prosecute any alcohol or drug abuse patient.[facility]In the event this information is protected by the Federal Confidentiality of Alcohol and Drug Abuse Patient Records regulations: The Federal rules restrict any use of the information to criminally investigate or prosecute any alcohol or drug abuse patient.[facility]In the event this information is protected by the Federal Confidentiality of Alcohol and Drug Abuse Patient Records regulations: The Federal rules restrict any use of the information to criminally investigate or prosecute any alcohol or drug abuse patient.[facility]In the event this information is protected by the Federal Confidentiality of Alcohol and Drug Abuse Patient Records regulations: The Federal rules restrict any use of the information to criminally investigate or prosecute any alcohol or drug abuse patient.[facility]In the event this information is protected by the Federal Confidentiality of Alcohol and Drug Abuse Patient Records regulations: The Federal rules restrict any use of the information to criminally investigate or prosecute any alcohol or drug abuse patient.[facility]In the event this information is protected by the Federal Confidentiality of Alcohol and Drug Abuse Patient Records regulations: The Federal rules restrict any use of the information to criminally investigate or prosecute any alcohol or drug abuse patient.[facility]In the event this information is protected by the Federal Confidentiality of Alcohol and Drug Abuse Patient Records regulations: The Federal rules restrict any use of the information to criminally investigate or prosecute any alcohol or drug abuse patient.[facility]In the event this information is protected by the Federal Confidentiality of Alcohol and Drug Abuse Patient Records regulations: The Federal rules restrict any use of the information to criminally investigate or prosecute any alcohol or drug abuse patient.[facility]In the event this information is protected by the Federal Confidentiality of Alcohol and Drug Abuse Patient Records regulations: The Federal rules restrict any use of the information to criminally investigate or prosecute any alcohol or drug abuse patient.[facility]In the event this information is protected by the Federal Confidentiality of Alcohol and Drug Abuse Patient Records regulations: The Federal rules restrict any use of the information to criminally investigate or prosecute any alcohol or drug abuse patient.[facility]In the event this information is protected by the Federal Confidentiality of Alcohol and Drug Abuse Patient Records regulations: The Federal rules restrict any use of the information to criminally investigate or prosecute any alcohol or drug abuse patient.[facility]In the event this information is protected by the Federal Confidentiality of Alcohol and Drug Abuse Patient Records regulations: The Federal rules restrict any use of the information to criminally investigate or prosecute any alcohol or drug abuse patient.[facility] HealthIn the event this information is protected by the Federal Confidentiality of Alcohol and Drug Abuse Patient Records regulations: The Federal rules restrict any use of the information to criminally investigate or prosecute any alcohol or drug abuse patient.[facility] HealthIn the event this information is protected by the Federal Confidentiality of Alcohol and Drug Abuse Patient Records regulations: The Federal rules restrict any use of the information to criminally investigate or prosecute any alcohol or drug abuse patient.[facility] HealthIn the event this information is protected by the Federal Confidentiality of Alcohol and Drug Abuse Patient Records regulations: The Federal rules restrict any use of the information to criminally investigate or prosecute any alcohol or drug abuse patient.[facility] HealthIn the event this information is protected by the Federal Confidentiality of Alcohol and Drug Abuse Patient Records regulations: The Federal rules restrict any use of the information to criminally investigate or prosecute any alcohol or drug abuse patient.[facility] HealthIn the event this information is protected by the Federal Confidentiality of Alcohol and Drug Abuse Patient Records regulations: The Federal rules restrict any use of the information to criminally investigate or prosecute any alcohol or drug abuse patient.[facility] HealthIn the event this information is protected by the Federal Confidentiality of Alcohol and Drug Abuse Patient Records regulations: The Federal rules restrict any use of the information to criminally investigate or prosecute any alcohol or drug abuse patient.[facility] HealthIn the event this information is protected by the Federal Confidentiality of Alcohol and Drug Abuse Patient Records regulations: The Federal rules restrict any use of the information to criminally investigate or prosecute any alcohol or drug abuse patient.[facility] HealthIn the event this information is protected by the Federal Confidentiality of Alcohol and Drug Abuse Patient Records regulations: The Federal rules restrict any use of the information to criminally investigate or prosecute any alcohol or drug abuse patient.[facility] HealthIn the event this information is protected by the Federal Confidentiality of Alcohol and Drug Abuse Patient Records regulations: The Federal rules restrict any use of the information to criminally investigate or prosecute any alcohol or drug abuse patient.[facility] HealthIn the event this information is protected by the Federal Confidentiality of Alcohol and Drug Abuse Patient Records regulations: The Federal rules restrict any use of the information to criminally investigate or prosecute any alcohol or drug abuse patient.[facility] HealthIn the event this information is protected by the Federal Confidentiality of Alcohol and Drug Abuse Patient Records regulations: The Federal rules restrict any use of the information to criminally investigate or prosecute any alcohol or drug abuse patient.[facility] HealthIn the event this information is protected by the Federal Confidentiality of Alcohol and Drug Abuse Patient Records regulations: The Federal rules restrict any use of the information to criminally investigate or prosecute any alcohol or drug abuse patient.[facility] HealthIn the event this information is protected by the Federal Confidentiality of Alcohol and Drug Abuse Patient Records regulations: The Federal rules restrict any use of the information to criminally investigate or prosecute any alcohol or drug abuse patient.[facility] HealthIn the event this information is protected by the Federal Confidentiality of Alcohol and Drug Abuse Patient Records regulations: The Federal rules restrict any use of the information to criminally investigate or prosecute any alcohol or drug abuse patient.[facility] HealthIn the event this information is protected by the Federal Confidentiality of Alcohol and Drug Abuse Patient Records regulations: The Federal rules restrict any use of the information to criminally investigate or prosecute any alcohol or drug abuse patient.[facility] HealthIn the event this information is protected by the Federal Confidentiality of Alcohol and Drug Abuse Patient Records regulations: The Federal rules restrict any use of the information to criminally investigate or prosecute any alcohol or drug abuse patient.[facility] HealthIn the event this information is protected by the Federal Confidentiality of Alcohol and Drug Abuse Patient Records regulations: The Federal rules restrict any use of the information to criminally investigate or prosecute any alcohol or drug abuse patient.[facility] HealthIn the event this information is protected by the Federal Confidentiality of Alcohol and Drug Abuse Patient Records regulations: The Federal rules restrict any use of the information to criminally investigate or prosecute any alcohol or drug abuse patient.[facility] HealthIn the event this information is protected by the Federal Confidentiality of Alcohol and Drug Abuse Patient Records regulations: The Federal rules restrict any use of the information to criminally investigate or prosecute any alcohol or drug abuse patient.[facility] HealthIn the event this information is protected by the Federal Confidentiality of Alcohol and Drug Abuse Patient Records regulations: The Federal rules restrict any use of the information to criminally investigate or prosecute any alcohol or drug abuse patient.[facility] HealthIn the event this information is protected by the Federal Confidentiality of Alcohol and Drug Abuse Patient Records regulations: The Federal rules restrict any use of the information to criminally investigate or prosecute any alcohol or drug abuse patient.[facility] HealthIn the event this information is protected by the Federal Confidentiality of Alcohol and Drug Abuse Patient Records regulations: The Federal rules restrict any use of the information to criminally investigate or prosecute any alcohol or drug abuse patient.[facility] HealthIn the event this information is protected by the Federal Confidentiality of Alcohol and Drug Abuse Patient Records regulations: The Federal rules restrict any use of the information to criminally investigate or prosecute any alcohol or drug abuse patient.[facility] HealthIn the event this information is protected by the Federal Confidentiality of Alcohol and Drug Abuse Patient Records regulations: The Federal rules restrict any use of the information to criminally investigate or prosecute any alcohol or drug abuse patient.[facility] HealthIn the event this information is protected by the Federal Confidentiality of Alcohol and Drug Abuse Patient Records regulations: The Federal rules restrict any use of the information to criminally investigate or prosecute any alcohol or drug abuse patient.[facility] HealthIn the event this information is protected by the Federal Confidentiality of Alcohol and Drug Abuse Patient Records regulations: The Federal rules restrict any use of the information to criminally investigate or prosecute any alcohol or drug abuse patient.[facility] HealthIn the event this information is protected by the Federal Confidentiality of Alcohol and Drug Abuse Patient Records regulations: The Federal rules restrict any use of the information to criminally investigate or prosecute any alcohol or drug abuse patient.[facility] HealthIn the event this information is protected by the Federal Confidentiality of Alcohol and Drug Abuse Patient Records regulations: The Federal rules restrict any use of the information to criminally investigate or prosecute any alcohol or drug abuse patient.[facility] HealthIn the event this information is protected by the Federal Confidentiality of Alcohol and Drug Abuse Patient Records regulations: The Federal rules restrict any use of the information to criminally investigate or prosecute any alcohol or drug abuse patient.[facility] HealthIn the event this information is protected by the Federal Confidentiality of Alcohol and Drug Abuse Patient Records regulations: The Federal rules restrict any use of the information to criminally investigate or prosecute any alcohol or drug abuse patient.[facility] HealthIn the event this information is protected by the Federal Confidentiality of Alcohol and Drug Abuse Patient Records regulations: The Federal rules restrict any use of the information to criminally investigate or prosecute any alcohol or drug abuse patient.[facility] HealthIn the event this information is protected by the Federal Confidentiality of Alcohol and Drug Abuse Patient Records regulations: The Federal rules restrict any use of the information to criminally investigate or prosecute any alcohol or drug abuse patient.[facility] HealthIn the event this information is protected by the Federal Confidentiality of Alcohol and Drug Abuse Patient Records regulations: The Federal rules restrict any use of the information to criminally investigate or prosecute any alcohol or drug abuse patient.[facility] HealthIn the event this information is protected by the Federal Confidentiality of Alcohol and Drug Abuse Patient Records regulations: The Federal rules restrict any use of the information to criminally investigate or prosecute any alcohol or drug abuse patient.[facility] HealthIn the event this information is protected by the Federal Confidentiality of Alcohol and Drug Abuse Patient Records regulations: The Federal rules restrict any use of the information to criminally investigate or prosecute any alcohol or drug abuse patient.[facility] HealthIn the event this information is protected by the Federal Confidentiality of Alcohol and Drug Abuse Patient Records regulations: The Federal rules restrict any use of the information to criminally investigate or prosecute any alcohol or drug abuse patient.[facility] HealthIn the event this information is protected by the Federal Confidentiality of Alcohol and Drug Abuse Patient Records regulations: The Federal rules restrict any use of the information to criminally investigate or prosecute any alcohol or drug abuse patient.[facility] HealthIn the event this information is protected by the Federal Confidentiality of Alcohol and Drug Abuse Patient Records regulations: The Federal rules restrict any use of the information to criminally investigate or prosecute any alcohol or drug abuse patient.[facility] HealthIn the event this information is protected by the Federal Confidentiality of Alcohol and Drug Abuse Patient Records regulations: The Federal rules restrict any use of the information to criminally investigate or prosecute any alcohol or drug abuse patient.[facility] HealthIn the event this information is protected by the Federal Confidentiality of Alcohol and Drug Abuse Patient Records regulations: The Federal rules restrict any use of the information to criminally investigate or prosecute any alcohol or drug abuse patient.[facility] HealthIn the event this information is protected by the Federal Confidentiality of Alcohol and Drug Abuse Patient Records regulations: The Federal rules restrict any use of the information to criminally investigate or prosecute any alcohol or drug abuse patient.[facility] HealthIn the event this information is protected by the Federal Confidentiality of Alcohol and Drug Abuse Patient Records regulations: The Federal rules restrict any use of the information to criminally investigate or prosecute any alcohol or drug abuse patient.[facility] HealthIn the event this information is protected by the Federal Confidentiality of Alcohol and Drug Abuse Patient Records regulations: The Federal rules restrict any use of the information to criminally investigate or prosecute any alcohol or drug abuse patient.[facility] HealthIn the event this information is protected by the Federal Confidentiality of Alcohol and Drug Abuse Patient Records regulations: The Federal rules restrict any use of the information to criminally investigate or prosecute any alcohol or drug abuse patient.[facility] HealthIn the event this information is protected by the Federal Confidentiality of Alcohol and Drug Abuse Patient Records regulations: The Federal rules restrict any use of the information to criminally investigate or prosecute any alcohol or drug abuse patient.[facility] HealthIn the event this information is protected by the Federal Confidentiality of Alcohol and Drug Abuse Patient Records regulations: The Federal rules restrict any use of the information to criminally investigate or prosecute any alcohol or drug abuse patient.[facility] HealthIn the event this information is protected by the Federal Confidentiality of Alcohol and Drug Abuse Patient Records regulations: The Federal rules restrict any use of the information to criminally investigate or prosecute any alcohol or drug abuse patient.[facility] Reason for Visit (unrecogniz ed section and content) Reason Comments Follow Up Specialty Diagnoses / Procedures Referred By Matias vaughan Referred To Contact Diagnoses Encounter for long-term (current) use of medications Procedures OFFICE/OUTPATIENT NEW HIGH MDM 60 MINUTES Clayton Granados, RN HOSP[facility] [facility] [address] [place] [address] Phone: tel: fax: Referral ID Status Reason Start Date Expiration Date V isits Requested Visits Authorized [id number] Closed PCP Requested Referral 01/11/2025 01/11/2026 1 1 Reason Comments Follow Up Specialty Diagnoses / Procedures Referred By Matias vaughan Referred To Contact Psychiatry / ADULT PSYCHIATRY Diagnoses med check Procedures VIDEO PSYC/PSYL EST Clayton Granados, RN [employer] [address] [place] [address] Clayton Granados, RN [facility] [address] [place] [address] Referral ID Status Reason Start Date Expiration Date V isits Requested Visits Authorized [id number] New Request 05/18/2024 08/16/2024 [address] Reason Comments Results 10/10 Reason Comments New Patient Evaluation Specialty Diagnoses / Procedures Referred By Contac t Referred To Contact Diagnoses Panic attacks Bipolar affective disorder, current episode mixed, current episode severity unspecified (HCC) Depressive disorder Procedures CONSULT TO PSYCHIATRY OFFICE/OUTPATIENT NEW HIGH MDM 60-74 MINUTES Fredrick Boland, DO [address] [place] [address] Referral ID Status Reason Start Date Expiration Date Visits Requested Visits Authorized [id number] Pending Review PCP Requested Referral 07/20/2021 07/20/2022 [...] ECT Referral 08/24/2022 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 Reason Comments Patient [...] questions, please feel call Yuri Salcedo at [phone] Reason Comments Transition Of Care Reason Comments [...] Care Teams (unrecognized sec tion and content) Bottle House Pumper Relationship Specialty Start Date End Date Fredrick Boland DO [address] [place], [place] [id number] PCP - General Family Practice 10/29/15 Bottle House Pumper Relationship Specialty Start Date End Date Fredrick Boland DO [address] [place], [place] [id number] PCP - General Family Practice 10/29/15 Bottle House Pumper Relationship Specialty Start Date End Date Fredrick Boland, DO [address] [place] [address] PCP - General Family Practice 10/29/15 Bottle House Pumper Relationship Specialty Start Date End Date Fredrick Boland, DO [address] [place] [address] PCP - General Family Practice 10/29/15 Bottle House Pumper Relationship Specialty Start Date End Date Fredrick Boland, DO [address] [place] [address] PCP - General Family Practice 10/29/15 Bottle House Pumper Relationship Specialty Start Date End Date Fredrick Boland, DO [address] [place] [address] PCP - General Family Practice 10/29/15 Bottle House Pumper Relationship Specialty Start Date End Date Fredrick Boland, DO [address] [place] [address] PCP - General Family Practice 10/29/15 Bottle House Pumper Relationship Specialty Start Date End Date Fredrick Boland, DO [address] [place] [address] PCP - General Family Practice 10/29/15 Bottle House Pumper Relationship Specialty Start Date End Date Fredrick Boland, DO [address] [place] [address] PCP - General Family Practice 10/29/15 Bottle House Pumper Relationship Specialty Start Date End Date Fredrick Boland, DO [address] [place] [address] PCP - General Family Practice 10/29/15 Bottle House Pumper Relationship Specialty Start Date End Date Fredrick Boland, DO [address] [place] [address] PCP - General Family Practice 10/29/15 Bottle House Pumper Relationship Specialty Start Date End Date Fredrick Boland, DO [address] [place] [address] PCP - General Family Practice 10/29/15 Bottle House Pumper Relationship Specialty Start Date End Date Fredrick Boland, DO [address] [place] [address] PCP - General Family Practice 10/29/15 Bottle House Pumper Relationship Specialty Start Date End Date Fredrick Boland, DO [address] [place] [address] PCP - General Family Practice 10/29/15 Bottle House Pumper Relationship Specialty Start Date End Date Fredrick Boland, DO [address] [place] [address] PCP - General Family Medicine 10/29/15 Bottle House Pumper Relationship Specialty Start Date End Date Fredrick Boland, DO [address] [place] [address] PCP - General Family Medicine 10/29/15 Bottle House Pumper Relationship Specialty Start Date End Date Fredrick Boland, DO [address] [place] [address] PCP - General Family Medicine 10/29/15 Bottle House Pumper Relationship Specialty Start Date End Date Fredrick Boland, DO [address] [place] [address] PCP - General Family Medicine 10/29/15 Bottle House Pumper Relationship Specialty Start Date End Date Fredrick Boland, DO [address] [place] [address] PCP - General Family Medicine 10/29/15 Bottle House Pumper Relationship Specialty Start Date End Date Fredrick Boland, DO [address] [place] [address] PCP - General Family Medicine 10/29/15 Bottle House Pumper Relationship Specialty Start Date End Date Fredrick Boland, DO [address] [place] [address] PCP - General Family Medicine 10/29/15 Bottle House Pumper Relationship Specialty Start Date End Date Fredrick Boland, DO [address] [place] [address] PCP - General Family Medicine 10/29/15 Bottle House Pumper Relationship Specialty Start Date End Date Fredrick Boland, DO [address] [place] [address] PCP - General Family Medicine 10/29/15 Bottle House Pumper Relationship Specialty Start Date End Date Fredrick Boland, DO [address] [place] [address] PCP - General Family Medicine 10/29/15 Bottle House Pumper Relationship Specialty Start Date End Date Fredrick Boland, DO [address] [place] [address] PCP - General Family Medicine 10/29/15 Ariella Cortes, RN Registered Nurse Psychiatry 08/30/22 Bottle House Pumper Relationship Specialty Start Date End Date Fredrick Boland, DO [address] [place] [address] PCP - General Family Medicine 10/29/15 Ariella Cortes, RN Registered Nurse Psychiatry 08/30/22 Bottle House Pumper Relationship Specialty Start Date End Date Fredrick Boland, DO [address] [place] [address] PCP - General Family Medicine 10/29/15 Ariella Cortes, RN Registered Nurse Psychiatry 08/30/22 Bottle House Pumper Relationship Specialty Start Date End Date Fredrick Boland, DO [address] [place] [address] PCP - General Family Medicine 10/29/15 Ariella Cortes, RN Registered Nurse Psychiatry 08/30/22 Bottle House Pumper Relationship Specialty Start Date End Date Fredrick Boland, DO [address] [place] [address] PCP - General Family Medicine 10/29/15 Ariella Cortes, RN Registered Nurse Psychiatry 08/30/22 Bottle House Pumper Relationship Specialty Start Date End Date Fredrick Boland, DO [address] [place] [address] PCP - General Family Medicine 10/29/15 Ariella Cortes RN Registered Nurse Psychiatry 08/30/22 Bottle House Pumper Relationship Specialty Start Date End Date Fredrick Boland DO [address] [place] [address] PCP - General Family Medicine 10/29/15 Ariella Cortes, RN Registered Nurse Psychiatry 08/30/22 Bottle House Pumper Relationship Specialty Start Date End Date Fredrick Boland DO [address] [place] [address] PCP - General Family Medicine 10/29/15 Ariella Cortes, RN Registered Nurse Psychiatry 08/30/22 Bottle House Pumper Relationship Specialty Start Date End Date Fredrick Boland DO [address] [facility] [place] [address] PCP - General Family Medicine 10/29/15 Ariella Cortes, RN Registered Nurse Psychiatry 08/30/22 Bottle House Pumper Relationship Specialty Start Date End Date Fredrick Boland DO [address] [facility] [place] [address] PCP - General Family Medicine 10/29/15 Ariella Cortes, RN Registered Nurse Psychiatry 08/30/22 Bottle House Pumper Relationship Specialty Start Date End Date Fredrick Boland DO [address] [place] [address] PCP - General Family Medicine 10/29/15 Ariella Cortes RN Registered Nurse Psychiatry 08/30/22 Bottle House Pumper Relationship Specialty Start Date End Date Fredrick Boland DO [address] [place] [address] PCP - General Family Medicine 10/29/15 Ariella Cortes RN Registered Nurse Psychiatry 08/30/22 Bottle House Pumper Relationship Specialty Start Date End Date Fredrick Boland DO [address] [place] [address] PCP - General Family Medicine 10/29/15 Ariella Cortes, RN Registered Nurse Psychiatry 08/30/22 Bottle House Pumper Relationship Specialty Start Date End Date Fredrick Boland DO [address] [place] [address] PCP - General Family Medicine 10/29/15 Arilela Cortes, RN Registered Nurse Psychiatry 08/30/22 Bottle House Pumper Relationship Specialty Start Date End Date Fredrick Boland DO [address] [place] [address] PCP - General Family Medicine 10/29/15 Ariella Cortes RN Registered Nurse Psychiatry 08/30/22 Bottle House Pumper Relationship Specialty Start Date End Date Fredrick Boland DO [address] [facility] [place] [address] PCP - General Family Medicine 10/29/15 Ariella Cortes, RN Registered Nurse Psychiatry 08/30/22 Bottle House Pumper Relationship Specialty Start Date End Date Fredrick Boland DO [address] [place] [address] PCP - General Family Medicine 10/29/15 Ariella Cortes, RN Registered Nurse Psychiatry 08/30/22 Bottle House Pumper Relationship Specialty Start Date End Date Fredrick Boland DO [address] [place] [address] PCP - General Family Medicine 10/29/15 Ariella Cortes, RN Registered Nurse Psychiatry 08/30/22 Bottle House Pumper Relationship Specialty Start Date End Date Fredrick Boland DO [address] [facility] [place] [address] PCP - General Family Medicine 10/29/15 Ariella Cortes RN Registered Nurse Psychiatry 08/30/22 Bottle House Pumper Relationship Specialty Start Date End Date Fredrick Boland DO [address] [facility] [place] [address] PCP - General Family Medicine 10/29/15 Ariella Cortes, RN Registered Nurse Psychiatry 08/30/22 Bottle House Pumper Relationship Specialty Start Date End Date Fredrick Boland DO [address] [facility] [place] [address] PCP - General Family Medicine 10/29/15 Bottle House Pumper Relationship Specialty Start Date End Date Fredrick Boland DO [address] [facility] [place] [address] PCP - General Family Medicine 10/29/15 Ariella Cortes, RN Registered Nurse Psychiatry 08/30/22 Bottle House Pumper Relationship Specialty Start Date End Date Fredrick Boland DO [address] [facility] [place] [address] PCP - General Family Medicine 10/29/15 Ariella Cortes, RN Registered Nurse Psychiatry 08/30/22 Yesenia Rangel, RN H[facility] [address] [place] [address] [facility] 06/03/24 MarilinXochilt, RN H[facility] [address] [place] [address] [facility] 06/03/24 Bottle House Pumper Relationship Specialty Start Date End Date Fredrick Boland DO [address] [place] [address] PCP - General Family Medicine 10/29/15 Ariella Cortes, RN Registered Nurse Psychiatry 08/30/22 Yesenia Rangel, RN H[facility].[employer] [facility] [address] [place] [address] [facility] 06/03/24 MarilinXochilt, RN HOSP[facility].[employer] [facility] [address] [place] [address] [facility] 06/03/24 Bottle House Pumper Relationship Specialty Start Date End Date Fredrick Boland DO [address] [place] [address] PCP - General Family Medicine 10/29/15 Ariella Cortes, RN Registered Nurse Psychiatry 08/30/22 08/07/24 Yesenia Rangel, RN HOSPICE.BED RUBBER [address] [place] [address] [facility] 06/03/24 MarilinXochilt, RN HOSPICE.BED RUBBER [address] [place] [address] Staff Accountant Family [facility] 06/03/24 Bottle House Pumper Relationship Specialty Start Date End Date Fredrick Boland DO [address] [place] [address] PCP - General Family Medicine 10/29/15 Yesenia Rangel, RN HOSPICE.BED RUBBER [address] [place] [address] Staff Accountant Family Medicine 06/03/24 MarilinXochilt, RN HOSPICE.BED RUBBER [address] [place] [address] [facility] 06/03/24 Bottle House Pumper Relationship Specialty Start Date End Date Fredrick Boland DO [address] [place] [address] PCP - General Family Medicine 10/29/15 Yesenia Rangel, RN HOSPICE.BED RUBBER [address] [place] [address] Staff Accountant Family Medicine 06/03/24 MarilinXochilt, RN HOSPICE.BED RUBBER [address] [place] [address] [facility] Bottle House Pumper Relationship Specialty Start Date End Date Fredrick Boland DO [address] [place] [address] PCP - General Family Medicine 10/29/15 Yesenia Rangel, RN HOSPICE.BED RUBBER [address] [facility] [place] [address] [facility] 06/03/24 [facility] HOSPICE.BED RUBBER [address] [place] [address] [facility] 06/03/24 Bottle House Pumper Relationship Specialty Start Date End Date Fredrick Boland DO [address] [place] [address] PCP - General Family Medicine 10/29/15 Yesenia Rangel, RN HOSPICE.BED RUBBER [address] [place] [address] [facility] 06/03/24 [facility] HOSPICE.BED RUBBER [address] [place] [address] [facility] 06/03/24 Bottle House Pumper Relationship Specialty Start Date End Date Fredrick Boland DO [address] [place] [address] PCP - General Family Medicine 10/29/15 Yesenia Rangel, RN HOSPICE.BED RUBBER [address] [place] [address] [facility] 06/03/24 [facility] HOSPICE.BED RUBBER [address] [place] [address] [facility] 06/03/24 Bottle House Pumper Relationship Specialty Start Date End Date Fredrick Boland DO [address] [place] [address] PCP - General Family Medicine 10/29/15 Yesenia Rangel, RN HOSPICE.BED RUBBER [address] [place] [address] Staff Accountant Family [facility] 06/03/24 Xochilt Gaston, RN HOSPICE.BED RUBBER [address] [place] [address] Staff Accountant Family [facility] 06/03/24 Bottle House Pumper Relationship Specialty Start Date End Date Fredrick Boland DO [address] [place] [address] PCP - General Family Medicine 10/29/15 Yesenia Rangel, RN HOSPICE.BED RUBBER [address] [place] [address] Staff Accountant [facility] 06/03/24 MarilinXochilt, RN HOSPICE.BED RUBBER [address] [place] [address] [facility] 06/03/24 Bottle House Pumper Relationship Specialty Start Date End Date Fredrick Boland DO [address] [place] [address] PCP - General Family Medicine 10/29/15 Yesenia Rangel, RN HOSPICE.BED RUBBER [address] [place] [address] [facility] 06/03/24 Xochilt Gaston, RN HOSPICE.BED RUBBER [address] [place] [address] Staff Accountant Family [facility] 06/03/24 Bottle House Pumper Relationship Specialty Start Date End Date Fredrick Boland DO [address] [place] [address] PCP - General Family Medicine 10/29/15 Yesenia Rangel, RN HOSPICE.BED RUBBER [address] [place] [address] Staff Accountant Family Medicine 06/03/24 MarilinXochilt, RN HOSPICE.BED RUBBER [address] [place] [address] Staff Accountant Family Medicine 06/03/24 Bottle House Pumper Relationship Specialty Start Date End Date Fredrick Boland DO [address] [place] [address] PCP - General Family Medicine 10/29/15 Yesenia Rangel, RN HOSPICE.BED RUBBER [address] [place] [address] Staff Accountant Family Medicine 06/03/24 Xochilt Gaston, RN HOSPICE.BED RUBBER [address] [place] [address] Staff Accountant Family [facility] 06/03/24 Bottle House Pumper Relationship Specialty Start Date End Date Fredrick Boland DO [address] [place] [address] PCP - General Family Medicine 10/29/15 Xochilt Gaston, RN HOSPICE.BED RUBBER [address] [place] [address] Staff Accountant Family Medicine 06/03/24 Bottle House Pumper Relationship Specialty Start Date End Date Fredrick Boland DO [address] [place] [address] PCP - General Family Medicine 10/29/15 Yesenia Rangel, RN HOSPICE.BED RUBBER [address] [place] [address] Staff Accountant Family [facility] 06/03/24 09/14/24 Xochilt Gaston, RN HOSPICE.BED RUBBER [address] [place] [address] Staff Accountant Family Medicine 06/03/24 Bottle House Pumper Relationship Specialty Start Date End Date Fredrick Boland DO [address] [place] [address] PCP - General Family Medicine 10/29/15 Yesenai Rangel, RN HOSPICE.BED RUBBER [address] [place] [address] Staff Accountant Family Medicine 06/03/24 09/14/24 Xochilt Gaston, RN HOSPICE.BED RUBBER [address] [place] [address] [facility] 06/03/24 Bottle House Pumper Relationship Specialty Start Date End Date Fredrick Boland DO [address] [place] [address] PCP - General Family Medicine 10/29/15 Xochilt Gaston, RN HOSPICE.BED RUBBER [address] [place] [address] Staff Accountant Family Medicine 06/03/24 Maggie Putnam MD [address] [place] [address] Internal Medicine 10/02/24 Bottle House Pumper Relationship Specialty Start Date End Date Fredrick Boland DO [address] [place] [address] PCP - General Family Medicine 10/29/15 Xochilt Gaston, RN HOSPICE.BED RUBBER [address] [facility] [place] [address] Staff Accountant Family Medicine 06/03/24 Maggie Putnam MD [address] [place] [address] Internal Medicine 10/02/24 Bottle House Pumper Relationship Specialty Start Date End Date Fredrick Boland DO [address] [facility] [place] [address] PCP - General Family Medicine 10/29/15 Xochilt Gaston, RN HOSPICE.BED RUBBER [address] [place] [address] Staff Accountant Family Medicine 06/03/24 Maggie Putnam MD [address] [place] [address] Internal Medicine 10/02/24 Bottle House Pumper Relationship Specialty Start Date End Date Fredrick Boland DO [address] [place] [address] PCP - General Family Medicine 10/29/15 Xochilt Gaston, RN HOSPICE.BED RUBBER [address] [place] [address] Staff Accountant Family Medicine 06/03/24 Maggie Putnam MD [address] [place] [address] Internal Medicine 10/02/24 Bottle House Pumper Relationship Specialty Start Date End Date Fredrick Boland DO [address] [place], [place] 826081 PCP - General Family Medicine 10/29/15 [facility], RN HOSPICE.BED RUBBER [address] [place], [place] 341365 [phone] Staff Accountant Family Medicine 06/03/24 Maggie Putnam MD [address] [place] [address] Internal Medicine 10/02/24 Bottle House Pumper Relationship Specialty Start Date End Date Fredrick Boland DO [address] [place], [place] 057971 PCP - General Family Medicine 10/29/15 [facility] RN HOSPICE.BED RUBBER [address] [place] [address] Staff Accountant Family Medicine 06/03/24 Maggie Putnam MD [address] [place] [address] Internal Medicine 10/02/24 Larry Betancourt MD Staff Accountant 10/12/24 10/26/24 Bottle House Pumper Relationship Specialty Start Date End Date Fredrick Boland DO [address] [place], [place] 122561 PCP - General Family Medicine 10/29/15 Xochilt Gaston, RN HOSPICE.BED RUBBER [address] [place] [address] Staff Accountant Family [facility] 06/03/24 Maggie Putnam MD [address] [place] [address] Internal Medicine 10/02/24 Bottle House Pumper Relationship Specialty Start Date End Date Fredrick Boland DO [address] [place], [place] 053021 PCP - General Family Medicine 11/28/24 Xochilt Gaston, RN HOSPICE.BED RUBBER [address] [place] [address] Staff Accountant Family Medicine 06/03/24 Maggie Putnam MD [address] [place] [address] Internal Medicine 10/02/24 Lee Lou MD [address] [place] [address] Night Coverage Internal Medicine 11/28/24 11/28/24 Bottle House Pumper Relationship Specialty Start Date End Date Xochilt Gaston, RN HOSPICE.BED RUBBER [address] [place] [address] Staff Accountant Family Medicine 06/03/24 Maggie Putnam MD [address] [place] [address] Internal Medicine 10/02/24 Bottle House Pumper Relationship Specialty Start Date End Date Fredrick Boland DO [address] [place] [address] PCP - General Family Medicine 11/28/24 Xochilt Gaston, RN HOSPICE.BED RUBBER [address] [place] [address] Staff Accountant Family [facility] 06/03/24 Maggie Putnam MD [address] [place] [address] Internal Medicine 10/02/24 Ed Saxena, RN HOSPICE.BED RUBBER [address] [place] [address] [facility] 12/10/24 Bottle House Pumper Relationship Specialty Start Date End Date Fredrick Boland DO [address] [place] [address] PCP - General Family Medicine 11/28/24 Xochilt Gaston, RN HOSPICE.BED RUBBER [address] [place] [address] Staff Accountant Family [facility] 06/03/24 Maggie Putnam MD [address] [place] [address] Internal Medicine 10/02/24 Ed Saxena, RN HOSPICE.BED RUBBER [address] [place] [address] [facility] Family [facility] 12/10/24 Keesha June [facility] [address] [place] [address] Transitional Care Pharmacist Pharmacy 12/20/24 03/21/25 Bottle House Pumper Relationship Specialty Start Date End Date Fredrick Boland DO [address] [place] [address] PCP - General Family Medicine 11/28/24 Xochilt Gaston, RN HOSPICE.BED RUBBER [address] [place] [address] [facility] 06/03/24 Maggie Putnam MD [address] [place] [address] Internal Medicine 10/02/24 Ed Saxena, RN HOSPICE.BED RUBBER [address] [place] [address] [facility] 12/10/24 Mounika Trent, [place] [address] Transitional Care Pharmacist Pharmacy 12/21/24 03/21/25 Bottle House Pumper Relationship Specialty Start Date End Date Fredrick Boland DO [address] [place] [address] PCP - General Family Medicine 11/28/24 MarilinXochilt, RN HOSPICE.BED RUBBER [address] [place] [address] [facility] 06/03/24 Maggie Putnam MD [address] [place] [address] Internal Medicine 10/02/24 Ed Saxena APRN.BED RUBBER [address] [place] [address] Staff Accountant Family Medicine 12/10/24 Mounika Trent, [facility] [address] [place] [address] Transitional Care Pharmacist Pharmacy 12/21/24 03/21/25 Bottle House Pumper Relationship Specialty Start Date End Date Fredrick Boland DO [address] [place] [address] PCP - General Family Medicine 11/28/24 Xochilt Gaston, RN HOSPICE.BED RUBBER [address] [place] [address] Staff Accountant Family Medicine 06/03/24 Maggie Putnam MD [address] [place] [address] Internal Medicine 10/02/24 Ed Saxena, RN HOSPICE.BED RUBBER [address] [place] [address] Staff Accountant Family Medicine 12/10/24 Mounika Trent, [facility] [address] [place] [address] Transitional Care Pharmacist Pharmacy 12/21/24 03/21/25 Bottle House Pumper Relationship Specialty Start Date End Date Fredrick Boland DO [address] [place] [address] PCP - General Family Medicine 11/28/24 Xochilt Gaston, RN HOSPICE.BED RUBBER [facility] [place] [address] Staff Accountant Family [facility] 06/03/24 Maggie Putnam MD [address] [place] [address] Internal Medicine 10/02/24 Ed Saxena, RN HOSPICE.BED RUBBER [address] [place] [address] Staff Accountant Family Medicine 12/10/[address] [address] Transitional Care Pharmacist Pharmacy 12/21/24 03/21/25 Bottle House Pumper Relationship Specialty Start Date End Date Fredrick Boland DO [address] [place] [address] PCP - General Family Medicine 11/28/24 Xochilt Gaston, RN HOSPICE.BED RUBBER [address] [place] [address] Staff Accountant Family [facility] 06/03/24 Maggie Putnam MD [address] [place] [address] Internal Medicine 10/02/24 Ed Saxena, RN HOSPICE.BED RUBBER [address] [place] [address] Staff Accountant Family Medicine 12/10/[address] [address] Transitional Care Pharmacist Pharmacy 12/21/24 03/21/25 Bottle House Pumper Relationship Specialty Start Date End Date Fredrick Boland DO [address] [place] [address] PCP - General Family Medicine 11/28/24 Xochilt Gaston, RN HOSPICE.BED RUBBER [address] [place] [address] Staff Accountant Family [facility] 06/03/24 Maggie Putnam MD [address] [place] [address] [phone] Internal Medicine 10/02/24 Ed Saxena, RN HOSPICE.BED RUBBER [address] [place] [address] [facility] 12/10/24 [facility] [address] [place], [place] [phone] Transitional Care Pharmacist Pharmacy 12/21/24 03/21/25 Bottle House Pumper Relationship Specialty Start Date End Date Fredrick Boland DO [address] [place] [address] PCP - General Family Medicine 11/28/24 Xochilt Gaston, RN HOSPICE.BED RUBBER [address] [place] [address] Staff Accountant Family [facility] 06/03/24 Maggie Putnam MD [address] [place] [address] Internal Medicine 10/02/24 Ed Saxena RN HOSPICE.BED RUBBER [address] [place] [address] Staff Accountant Family Medicine 12/10/[address] [address] Transitional Care Pharmacist Pharmacy 12/21/24 03/21/25 Bottle House Pumper Relationship Specialty Start Date End Date Fredrick Boland DO [facility] [place] [address] PCP - General Family Medicine 11/28/24 Xochilt Gaston, KAIN.BED RUBBER [address] [place] [address] Staff Accountant Family Medicine 06/03/24 Maggie Putnam MD [address] [place] [address] Internal Medicine 10/02/24 Ed Saxena RN HOSPICE.BED RUBBER [address] [place] [address] Staff Accountant Family [facility] 12/10/24 [facility] [address] [place] [address] Transitional Care Pharmacist Pharmacy 12/21/24 03/21/25 Bottle House Pumper Relationship Specialty Start Date End Date Fredrick Boland DO [address] [place] [address] PCP - General Family Medicine 11/28/24 Xochilt Gaston, RN HOSPICE.BED RUBBER [facility] [place] [address] Staff Accountant Family [facility] 06/03/24 Maggie Putnam MD [address] [place] [address] Internal Medicine 10/02/24 Ed Saxena, RN HOSPICE.BED RUBBER [address] [place] [address] 458181 Staff Accountant Family [facility] 12/10/[address] [address] Transitional Care Pharmacist Pharmacy 12/21/24 03/21/25 Bottle House Pumper Relationship Specialty Start Date End Date Fredrick Boland DO [address] [place] [address] 016841 PCP - General Family Medicine 11/28/24 Xochilt Gaston, RN HOSPICE.BED RUBBER [address] [place] [address] [phone] [facility] 06/03/24 Maggie Putnam MD [address] [place] [address] Internal Medicine 10/02/24 Ed Saxena, RN HOSPICE.BED RUBBER [address] [place] [address] Staff Accountant Family [facility] 12/10/24 [facility] [address] [place] [address] Transitional Care Pharmacist Pharmacy 12/21/24 03/21/25 Bottle House Pumper Relationship Specialty Start Date End Date Fredrick Boland DO [address] [place] [address] PCP - General Family Medicine 11/28/24 Xochilt Gaston, KAIN.BED RUBBER [address] [place] [address] Staff Accountant Family Medicine 06/03/24 Maggie Putnam MD [address] [place] [address] Internal Medicine 10/02/24 Ed Saxena, KAIN.BED RUBBER [address] [place] [address] Staff Accountant Family [facility] 12/10/24 [facility] [address] [place], [place] [phone] Transitional Care Pharmacist Pharmacy 12/21/24 03/21/25 Bottle House Pumper Relationship Specialty Start Date End Date Fredrick Boland DO [address] [place] [address] PCP - General Family Medicine 11/28/24 Xochilt Gaston, RN HOSPICE.BED RUBBER [address] [place] [address] Staff Accountant Family Medicine 06/03/24 Maggie Putnam MD [address] [place] [address] Internal Medicine 10/02/24 Ed Saxena RN HOSPICE.BED RUBBER [address] [place] [address] Staff Accountant Family Medicine 12/10/24 [facility] [address] [place] [address] Transitional Care Pharmacist Pharmacy 12/21/24 03/21/25 Bottle House Pumper Relationship Specialty Start Date End Date Fredrick Boland DO [address] [place] [address] PCP - General Family Medicine 11/28/24 Xochilt Gaston APRN.BED RUBBER [address] [place] [address] Staff Accountant Family Medicine 06/03/24 Maggie Putnam MD [address] [place], [place] [phone] Internal Medicine 10/02/24 Ed Saxena APRN.BED RUBBER [address] [place] [address] Staff Accountant Family [facility] 12/10/24 [facility] [address] [place] [address] Transitional Care Pharmacist Pharmacy 12/21/24 03/21/25 Stephie Montoya MD [address] [place] [address] [facility] Provider Gastroenterology 01/22/25 Stephie Montoya MD [address] [place] [address] Home Parenteral Nutrition Provider Gastroenterology 01/22/25 Bottle House Pumper Relationship Specialty Start Date End Date Fredrick Boland DO [address] [place], [place] 211971 PCP - General Family Medicine 11/28/24 Xochilt Gaston APRN.BED RUBBER [address] [place], [place] 932441 Staff Accountant Family [facility] 06/03/24 Maggie Putnam MD [address] [place] [address] Internal Medicine 10/02/24 Ed Saxena APRN.BED RUBBER [address] [place], [place] 113181 Staff Accountant [facility] 12/10/24 [facility] [address] [place] [address] Transitional Care Pharmacist Pharmacy 12/21/24 03/21/25 Stephie Montoya MD [address] [place] [phone] [facility] Provider Gastroenterology 01/22/25 Stephie Mnotoya MD [address] [place] [address] Home Parenteral Nutrition Provider Gastroenterology 01/22/25 Bottle House Pumper Relationship Specialty Start Date End Date Fredrick Boland DO [address] [place] [address] PCP - General Family Medicine 11/28/24 Xochilt Gaston APRN.BED RUBBER [address] [place], [place] 701971 Staff Accountant Family [facility] 06/03/24 Maggie Putnam MD [address] [place] [address] Internal Medicine 10/02/24 Ed Saxena APRN.BED RUBBER [address] [place] [address] [phone] Staff Accountant [facility] 12/10/24 [facility] [address] [place] [address] Transitional Care Pharmacist Pharmacy 12/21/24 03/21/25 [place] [address] [place], [place] [phone] [facility] Provider Gastroenterology 01/22/25 Stephie Montoya MD [address] [place] [address] Home Parenteral Nutrition Provider Gastroenterology 01/22/25 Bottle House Pumper Relationship Specialty Start Date End Date Fredrick Boland DO [address] [place] [address] PCP - General Family Medicine 11/28/24 Xochilt Gaston, KAIN.BED RUBBER [address] [place] [address] Staff Accountant Family [facility] 06/03/24 Maggie Putnam MD [address] [place] [address] Internal Medicine 10/02/24 Ed Saxena, RN HOSPICE.BED RUBBER [address] [place], [place] 681601 Staff Accountant [facility] 12/10/24 [facility] [address] [place] [address] Transitional Care Pharmacist Pharmacy 12/21/24 03/21/25 Stephie Montoya MD [address] [place] [address] [facility] Provider Gastroenterology 01/22/25 [place] [address] [place] [address] Home Parenteral Nutrition Provider Gastroenterology 01/22/25 Bottle House Pumper Relationship Specialty Start Date End Date Fredrick Boland DO [address] [place] [address] [phone] PCP - General Family Medicine 11/28/24 Xochilt Gaston, RN HOSPICE.BED RUBBER [address] [place] [address] [phone] Staff Accountant Family [facility] 06/03/24 Maggie Putnam MD [address] [place] [address] Internal Medicine 10/02/24 Ed Saxena, RN HOSPICE.BED RUBBER [address] [place] [address] [phone] Staff Accountant Family [facility] 12/10/24 Mounika Trent, [facility] [address] [place] [address] Transitional Care Pharmacist Pharmacy 12/21/24 03/21/25 Stephie Montoya MD [address] [place], [place] [phone] [facility] Provider Gastroenterology 01/22/25 Stephie Montoya MD [address] [place] [address] Home Parenteral Nutrition Provider Gastroenterology 01/22/25 Bottle House Pumper Relationship Specialty Start Date End Date Fredrick Boland DO [address] [place] [address] 835201 PCP - General Family Medicine 11/28/24 Xochilt Gaston, RN HOSPICE.BED RUBBER [address] [place] [address] [phone] Staff Accountant Family Medicine 06/03/24 Maggie Putnam MD [address] [place] [address] 7[address]98 Internal Medicine 10/02/24 Ed Saxena, RN HOSPICE.BED RUBBER [address] [place] [address] Staff Accountant Family Medicine 12/10/24 Mounika Trent, [facility] [address] [place] [address] Transitional Care Pharmacist Pharmacy 12/21/24 03/21/25 Stephie Montoya MD [address] [place] [phone] [facility] Provider Gastroenterology 01/22/25 Stephie Montoya MD [address] [place] [phone] Home Parenteral Nutrition Provider Gastroenterology 01/22/25 Bottle House Pumper Relationship Specialty [place] [address] [place] [address] [phone] PCP - General Family Medicine 11/28/24 Xochilt Gaston APRN.BED RUBBER [address] [place] [address] [phone] Staff Accountant Family Medicine 06/03/24 Maggie Putnam MD [address] [place] [address] 9[address]86 Internal Medicine 10/02/24 Ed Saxena APRN.BED RUBBER [address] [place] [address] Staff Accountant Family Medicine 12/10/24 Mounika Trent, [facility] [address] [place] [phone] Transitional Care Pharmacist Pharmacy 12/21/24 03/21/25 Stephie Montoya MD [address] [place] [address] [facility] Gastroenterology 01/22/25 Stephie Montoya MD [address] [place] [address] Home Parenteral Nutrition Provider Gastroenterology 01/22/25 Bottle House Pumper Relationship Specialty Start Date End Date Fredrick Boland DO [address] [place], [place] 977611 PCP - General Family Medicine 11/28/24 Xochilt Gaston APRN.BED RUBBER [address] [place], [place] 474611 Staff Accountant Family [facility] 06/03/24 Maggie Putnam MD [address] [place], [place] 763934 Internal Medicine 10/02/24 Ed Saxena APRN.BED RUBBER [address] [place], [place] 755731 Staff Accountant [facility] 12/10/24 [facility] [address] [place] [address] Transitional Care Pharmacist Pharmacy 12/21/24 03/21/25 Stephie Montoya MD [address] [place] [phone] [facility] Provider Gastroenterology 01/22/25 Stephie Montoya MD [address] [place] [address] Home Parenteral Nutrition Provider Gastroenterology 01/22/25 Bottle House Pumper Relationship Specialty Start Date End Date Fredrick Boland DO [address] [place] [address] PCP - General Family Medicine 11/28/24 Xochilt Gaston, RN HOSPICE.BED RUBBER [address] [place] [address] Staff Accountant Family [facility] 06/03/24 Maggie Putnam MD [address] [place] [address] Internal Medicine 10/02/24 Ed Saxena, RN HOSPICE.BED RUBBER [address] [place], [place] 214551 [facility]/24 [facility] [address] [place], [place] [phone] Transitional Care Pharmacist Pharmacy 12/21/24 03/21/25 Stephie Montoya MD [address] [place] [address] [facility] Provider Gastroenterology 01/22/25 Stephie Montoya MD [address] [place], [place] [phone] Home Parenteral Nutrition Provider Gastroenterology 01/22/25 Bottle House Pumper Relationship Specialty Start Date End Date Fredrick Boland DO [address] [place] [address] PCP - General Family Medicine 11/28/24 Xochilt Gaston, RN HOSPICE.BED RUBBER [address] [place] [address] Staff Accountant Family [facility] 06/03/24 Maggie Putnam MD [address] [place] [address] Internal Medicine 10/02/24 Ed Saxena, RN HOSPICE.BED RUBBER [address] [place] [address] [phone] [facility]24 [facility] [address] [place] [address] Transitional Care Pharmacist Pharmacy 12/21/24 03/21/25 Stephie Montoya MD [address] [place], [place] [phone] [facility] Provider Gastroenterology 01/22/25 Stephie Montoya MD [address] [place], [place] [phone] Home Parenteral Nutrition Provider Gastroenterology 01/22/25 Bottle House Pumper Relationship Specialty Start Date End Date Fredrick Boland DO [address] [place] [address] [id number] PCP - General Family Medicine 11/28/24 Xochilt Gaston APRN.BED RUBBER [address] [place] [address] [phone] Staff Accountant Family [facility] 06/03/24 Maggie Putnam MD [address] [place], [place] [phone] Internal Medicine 10/02/24 Ed Saxena, RN HOSPICE.BED RUBBER [address] [place], [place] [phone] Staff Accountant Family Medicine 12/10/24 Mounika Trent, [facility] [address] [place] [address] Transitional Care Pharmacist Pharmacy 12/21/24 03/21/25 Stephie Montoya MD [address] [place], [place] [phone] [facility] Provider Gastroenterology 01/22/25 Stephie Montoya MD [address] [place] [address] Home Parenteral Nutrition Provider Gastroenterology 01/22/25 Chance Florentino, RN Registered Nurse General Surgery 02/20/25 Lamar Dey RN Registered Nurse Backup General Surgery 02/20/25 Kirit Devine MD [address] [place] [address] Surgeon General Surgery 02/20/25 Bottle House Pumper Relationship Specialty Start Date End Date Fredrick Boland DO [address] [place] [address] [id number] PCP - General Family Medicine 11/28/24 Xochilt Gaston, KAIN.BED RUBBER [address] [place] [address] [phone] Staff Accountant Family Medicine 06/03/24 Maggie Putnam MD [address] [place] [address] [phone] Internal Medicine 10/02/24 Ed Saxena, RN HOSPICE.BED RUBBER [address] [place], [place] [phone] Staff Accountant Family Medicine 12/10/24 Mounika Trent, [facility] [address] [place] [address] Transitional Care Pharmacist Pharmacy 12/21/24 03/21/25 Stephie Montoya MD [address] [place] [phone] [facility] Provider Gastroenterology 01/22/25 Stephie Montoya MD [address] [place] [address] Home Parenteral Nutrition Provider Gastroenterology 01/22/25 Chance Florentino, RN Registered Nurse General Surgery 02/20/25 Lamar Dey RN Registered Nurse Backup General Surgery 02/20/25 Kirit Devine MD [facility] [place] [phone] Surgeon General Surgery 02/20/25 Bottle House Pumper Relationship Specialty Start Date End Date Fredrick Boland DO [address] [place], [place] 640371 PCP - General Family Medicine 11/28/24 Xochilt Gaston APRN.BED RUBBER [address] [place], [place] [phone] Staff Accountant Family Medicine 06/03/24 Maggie Putnam MD [address] [place] [address] Internal Medicine 10/02/24 Ed Saxena APRN.BED RUBBER [address] [place] [address] Staff Accountant Family Medicine 12/10/24 [facility] [address] [place] [address] Transitional Care Pharmacist Pharmacy 12/21/24 03/21/25 Stephie Montoya MD [address] [place] [address] [facility] Provider Gastroenterology 01/22/25 Stephie Montoya MD [address] [place] [address] Home Parenteral Nutrition Provider Gastroenterology 01/22/25 Chance Florentino, RN Registered Nurse General Surgery 02/20/25 Lamar Dey RN Registered Nurse Backup General Surgery 02/20/25 Kirit Devine MD [address] [place] [address] Surgeon General Surgery 02/20/25 Bottle House Pumper Relationship Specialty Start Date End Date Fredrick Boland DO [address] [place], [place] [id number] PCP - General Family Medicine 11/28/24 Xochilt Gaston, KAIN.BED RUBBER [address] [place] [address] Staff Accountant Family Medicine 06/03/24 Maggie Putnam MD [address] [place] [address] Internal Medicine 10/02/24 Ed Saxena APRN.BED RUBBER [address], [place] 299181 Staff Accountant Family Medicine 12/10/24 [facility] [address] [place] [phone] Transitional Care Pharmacist Pharmacy 12/21/24 03/21/25 [place] [address] [place], [place] [phone] [facility] Provider Gastroenterology 01/22/25 02/28/25 [place] [address] [place], [place] [phone] Home Parenteral Nutrition Provider Gastroenterology 01/22/25 02/28/25 Chance Florentino, RN Registered Nurse General Surgery 02/20/25 Lamar Dey, NATHANAEL Registered Nurse Backup General Surgery 02/20/25 Kirit Devine MD [address] [place] [phone] Surgeon General Surgery 02/20/25 Bottle House Pumper Relationship Specialty Start Date End Date Fredrick Boland DO [address] [place], [place] [phone] PCP - General Family Medicine 11/28/24 Xochilt Gaston APRN.BED RUBBER [address] [place], [place] [phone] Staff Accountant Family Medicine 06/03/24 Maggie Putnam MD [address] [place] [address] Internal Medicine 10/02/24 Ed Saxena, RN HOSPICE.BED RUBBER [facility] [place], [place] 467251 Staff Accountant Family Medicine 12/10/24 Mounika Trent, [facility] [address] [place] [address] Transitional Care Pharmacist Pharmacy 12/21/24 03/21/25 Chance Florentino, RN Registered Nurse General Surgery 02/20/25 Lamar Dey, NATHANAEL Registered Nurse Backup General Surgery 02/20/25 Kirit Devine MD [address] [place], [place] [phone] Surgeon General Surgery 02/20/25 Bottle House Pumper Relationship Specialty Start Date End Date Fredrick Boland DO [address] [place] [id number] PCP - General Family Medicine 11/28/24 Xochilt Gaston, RN HOSPICE.BED RUBBER [address] [place] [address] Staff Accountant Family Medicine 06/03/24 Maggie Putnam MD [address] [place] [address] Internal Medicine 10/02/24 Ed Saxena, RN HOSPICE.BED RUBBER [address] [place] [address] [phone] Staff Accountant Family Medicine 12/10/24 Mounika Trent, [facility] [address] [place], [place] [phone] Transitional Care Pharmacist Pharmacy 12/21/24 03/21/25 Chance Florentino, RN Registered Nurse General Surgery 02/20/25 Lamar Dey, RN Registered Nurse Backup General Surgery 02/20/25 Kirit Devine MD [facility] [place] [address] Surgeon General Surgery 02/20/25 Bottle House Pumper Relationship Specialty Start Date End Date Fredrick Boland DO [address] [place] [address] PCP - General Family Medicine 11/28/24 Xochilt Gaston APRN.BED RUBBER [address] [place] [phone] Staff Accountant Family Medicine 06/03/24 Maggie Putnam MD [address] [place] [address]67 Internal Medicine 10/02/24 Ed Saxena APRN.BED RUBBER [address] [place] [address] Staff Accountant Family Medicine 12/10/24 Mounika Trent [facility] [address] [place] [address] Transitional Care Pharmacist Pharmacy 12/21/24 03/21/25 Chance Florentino, RN Registered Nurse General Surgery 02/20/25 Lamar Dey, RN Registered Nurse Backup General Surgery 02/20/25 Kirit Devine MD [address] [place] [address] Surgeon General Surgery 02/20/25 Bottle House Pumper Relationship Specialty Start Date End Date Fredrick Boland DO [address] [place] [address] PCP - General Family Medicine 11/28/24 Xochilt Gaston, RN HOSPICE.BED RUBBER [address] [place] [address] Staff Accountant Family [facility] 06/03/24 Maggie Putnam MD [address] [place] [address] Internal Medicine 10/02/24 Ed Saxena, RN HOSPICE.BED RUBBER [address] [place] [address] [facility] 12/10/24 [place] [address] Transitional Care Pharmacist Pharmacy 12/21/24 03/21/25 Chance Florentino, RN Registered Nurse General Surgery 02/20/25 Lamar Dey, NATHANAEL Registered Nurse Backup General Surgery 02/20/25 Kirit Devine MD [address] [place] [address] Surgeon General Surgery 02/20/25 Bottle House Pumper Relationship Specialty Start Date End Date Fredrick Boland DO [address] [place] [address] PCP - General Family Medicine 11/28/24 Xochilt Gaston, RN HOSPICE.BED RUBBER [address] [place] [address] Staff Accountant Family Medicine 06/03/24 Maggie Putnam MD [address] [place] [address] Internal Medicine 10/02/24 Ed Saxena APRN.BED RUBBER [address], [place] [phone] Staff Accountant Family [facility] 12/10/24 [facility] [address] [place] [address] Transitional Care Pharmacist Pharmacy 12/21/24 03/21/25 Chance Florentino, RN Registered Nurse General Surgery 02/20/25 Lamar Dey RN Registered Nurse Backup General Surgery 02/20/25 Kirit Devine MD [address] [place] [address] Surgeon General Surgery 02/20/25 FOR RECORDS [...] BE BASED ON THE PRIMARY CLINICAL RECORDS. [facility] [employer] [facility]. provides no warranty or guarantee of the accuracy or completeness of information in this document.
[2025-06-23 11:50] LABS: AST(SGOT) 58 U/L (<=31); Alanine Aminotransfer ALT/SGPT 47 U/L (<=34); Albumin, Serum 3.3 g/dL (3.5-5.0); Alkaline Phosphatase 113 U/L (35-104); Anion Gap 14 (7-18); BUN 5 mg/dL (4-19); BUN/Creat Ratio 4.7 RATIO (10-20); Carbon Dioxide 23.0 mmol/L (20.0-29.0); Chloride 104 mmol/L (96-106); Estimated Creatinine Clearance 80.03 ml/min (50-250); Globulin 2.8 g/dL (2.2-4.2); Glucose 131 mg/dL (70-99); Lipase 8 U/L (13-75)
[2025-06-23 11:55] LABS: Calcium,Total 5.6 mg/dL (7.6-11.0); Magnesium 0.5 mg/dL (1.5-2.2); Potassium 2.5 mmol/L (3.5-5.1)
--- NOTE | 2025-06-23 12:10 | HP.PCM.HOS_ITS ---
HPI - General General Date of Admission: 06/23/25 Date of Service: 06/23/25 Chief Complaint: abdominal pain HPI Narrative CHERYL ROSADO, is a 39 F with a PMH as outlined including small bowel who presents via the ED on 06/23/2025 with a complaint of hand cramping and pain which started on the morning of admission. She admitted to a history of low potassium and said she was on potassium supplementation which she has been compliant with. She started having the above symptoms today and said she had also been having diarrhea which had been going on since her partial bowel resection an ileostomy with subsequent reversal. She also admitted to a history of low magnesium. Review of systems is otherwise negative. Vitals in the ED were BP of 116/81, WV of 109, RR of 16 and temp of 97.8F. She was saturating at 98% on room air. CBC showed Hb of 11.9, wbc of 6.3 and platelets of 329. Chemistry showed sodium of 141 potassium of 2.5 and creatinine of 1.04. Bicarb was 23. Calcium level was 5.6 and magnesium was 0.5. She has been admitted to be managed for multiple electrolyte abnormalities with resultant cramping. 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 Abdominal bloating Flatulence Depression Former smoker Ischemic necrosis of toe Sepsis Hx of blood clots Diarrhea Anxiety Tobacco use Borderline personality disorder Obesity Bipolar disorder Home Medications ?Medication ?Instructions ?Recorded ?Last Taken ?Type escitalopram oxalate 20 mg tablet 30 mg PO DAILY depre ssion 04/27/22 05/24/25 History omeprazole 40 mg capsule,delayed 40 mg PO DAILY gerd 1 08/21/22 05/24/25 History release Lactobacillus acidoph-L.bulgaricus 2 tab PO QHS supple ment 05/24/25 05/24/25 History 1 million cell tablet (Floranex) apixaban 5 mg tablet (Eliquis) 5 mg PO BID heart 05/2405/24/25 History dicyclomine 10 mg capsule 10 mg PO TID gas/bloating 05/24/25 History doxepin 10 mg capsule 10 mg PO DAILY pain 05/24/25 05/24/25 History lurasidone 40 mg tablet 40 mg PO QHS mood 05/24/25 1 07/24/24 History olanzapine 10 mg tablet 10 mg PO QHS anti psychotic 05/24/25 05/24/25 History potassium chloride 20 mEq 60 meq PO DAILY k+ replace 1 07/24/24 05/24/25 History tablet,extended release(part/cryst) Allergy/AdvReac Type Severity Reaction Status Date / Time hydrocodone (From Vicodin) AdvReac Abd Verified 06/23/25 10:25 cramps/diarrhea Family History Other Heart disease Surgical History History of creation of ostomy Hx of cholecystectomy H/O section History of carpal tunnel surgery Social History Smoking Status: Current every day smoker tobacco type: cigarettes and e- cigarettes substance use type: does not use ROS Constitutional Constitutional: Denies anorexia, chills, fatigue, fever(s), malaise or weakness Eyes Eyes: Denies change in vision ENT HEENT: Denies dysphagia, headache(s) or sore throat Cardiovascular Cardiovascular: Denies chest pain, dyspnea on exertion, lightheadedness, orthopnea, palpitations, rapid heart rate or syncope Respiratory/Chest Respiratory/Chest: Denies cough, dyspnea, productive cough, shortness of breath at rest or shortness of breath with exertion Gastrointestinal Gastrointestinal: Denies abdominal pain, constipation, diarrhea, nausea or vomiting Genitourinary Genitourinary: Denies dysuria Musculoskeletal Musculoskeletal: Reports other Details: cramping of hands ; Denies joint pain Neurologic Neurologic: Denies confusion, dizziness, focal weakness, headache(s), numbness, paresthesias, seizures, syncope, tingling or tremor(s) Psychiatric Psychiatric: Denies anxiety Patient's Goals Of Care . What would you like to achieve or improve as a result of your hospital stay?: to get better Vital Signs Vital Signs Vital Signs: 06/23/25 10:23 06/23/25 10:30 Temperature 97.8 F Temperature Source Oral Pulse Rate 109 H Respiratory Rate 16 Respiratory Effort Normal Respiratory Pattern Normal Blood Pressure 116/81 H Blood Pressure Mean 92 Pulse Ox 98 Oxygen Delivery Method Room Air Weight Weight: 181 lb 3 oz Body Mass Index (BMI) 27.5 Physical Exam Const alert, oriented x3 and no apparent distress General Appearance: cooperative HEENT normocephalic, head/scalp atraumatic, moist oral mucous membranes and oropharynx normal Eyes EOMs intact bilaterally and conjunctivae normal Neck supple and no JVD Resp normal respiratory effort, no use of accessory muscles and clear to auscultation bilaterally Cardio regular rate, regular rhythm, S1 normal heart sound, S2 normal heart sound and no murmurs GI normal to inspection, nondistended, normoactive bowel sounds, soft to palpation and non-tender Extremity normal to inspection, full ROM and no clubbing, cyanosis or edema Neuro oriented x3, moves all extremities and no focal motor deficits Sensorium / Orientation: awake and alert Motor Exam: strength 5/5 throughout Psych affect normal Results Lab / Micro Data 06/23/25 10:43 06/23/25 10:43 Labs: Laboratory Results - last 24 hr 06/23/25 10:43: WBC 6.3, RBC 3.93 L, Hgb 11.9 L, Hct 34.3 L, MCV 87.3, MCH 30.3, MCHC 34.7, RDW Std Deviation 42.9, RDW Coeff of Chris 13.5, Plt Count 329, MPV 9.8, Immature Gran % (Auto) 0.200, Neut % (Auto) 58.8, Lymph % (Auto) 32.8, [place] % (Auto) 6.6, Eos % (Auto) 1.1, Baso % (Auto) 0.5, Absolute Neuts (auto) 3.7, Absolute Lymphs (auto) 2.07, Nucleated RBC % 0, Sodium 141, Potassium 2.5 L*, Chloride 104, Carbon Dioxide 23.0, Anion Gap 14, BUN 5, Creatinine 1.04, Estim Creat Clear Calc 80.03, Est GFR (MDRD) Non-Af 69, BUN/Creatinine Ratio 4.7 L, G lucose 131 H, Calcium 5.6 L*, Magnesium 0.5 L*, Total Bilirubin 0.77, AST 58 H, ALT 47 H, Alkaline Phosphatase 113 H, Total Protein 6.2, Albumin 3.3 L, Globulin 2.8, Albumin/Globulin Ratio 1.2, Lipase 8 L 06/23/25 11:23: Ionized Calcium 0.83 L Assessment & Plan Assessment/Plan (1) Hand cramps: (2) Low magnesium level: (3) Hypocalcemia: (4) Hypokalemia: PLAN: Plan #Hypokalemia, hypocalcemia and hypomagnesemia * Patient has a history of small bowel obstruction s/p resection and so she likely has some malabsorption and this resulted in recurrent electrolyte abnormalities. * Potassium is 2.5 with calcium of 5.6 and magnesium of 0.5. * Replace aggressively with IV and p.o. potassium, IV magnesium and IV calcium * EKG did not show any changes indicated of electrolyte abnormalities. * Trend electrolytes every 4 hourly * #History of DVT: On Eliquis #History of depression and anxiety as well as bipolar disorder: On lurasidone and olanzapine as well as escitalopram and doxepin DVT prophylaxis: Already on Eliquis Code status: full code Charges/Coding Visit Charges Inpatient E&M: 07219 Init Hosp L3 Procedures Hospitalists Procedures: 13933 Advncd Care Plan 30 Min
[2025-06-23] MEDS: Magnesium Sulfate 4gm/100mL 4 GM/100 ML IV.SOLN. IV (12:26)
[2025-06-23] MEDS: Potassium Chloride 10mEq/100mL 10 MEQ/100 ML IV.SOLN. 100 MEQ IV BOLUS ×4 (12:26→16:30)
--- OUTSIDE RECORDS SUMMARY | 2025-06-23 12:43 | XMS RPT_ITS | CCD ---
Author Organization [facility] Care Team Providers Care Wildlife Biologist Name Role Phone Zakiya George Unavailable UnavailZakiya [...] Fredrick Boland DO Primary Care Provider Rangel ICE CREAM VAN VENDOR.Yesenia HARRINGTON Unavailable [facility] ICE CREAM VAN VENDOR.Xochilt HARRINGTON Unavailable Ariella Cortes RN Unavailable Unavailable Juan Carlos ICE CREAM VAN VENDOR.Yesenia HARRINGTON Unavailable Maggie Putnam MD Unavailable Provider [...] Care Provider Lee Lou MD Unavailable [place] ICE CREAM VAN VENDOR.DIRECTOR OF CLOUD SERVICES, Ed [place] Unavailable Leuschen [facility], Keesha Unavailable Crnonaomy [facility], Mounika Unavailable Stephie Montoya MD [...] Unavailable Alok Arreaga Consulting Unavailable Rosa Maria Cia Consulting Unavailable Taras Sue Admitting Unavailable Donte Nunez Attending Unavailable Boland, Fredrick Primary Care Unavailable Taras Sue Consulting Unavailable Donte Nunez Consulting Unavailable Ashley Rosen Attending Unavailable Donte Espinal Consulting Unavailable Donte Espinal Attending Unavailable Donte Espinal Admitting Unavailable Boland, Fredrick Primary Care Unavailable Boland, Fredrick Primary Care Unavailable Jag Thomas Attending Unavailable Boland, [place] Primary Care Unavailable Rosa Maria Cai Referring Unavailable Ailyn Robert Attending Unavailable Ashley Rosen Attending Unavailable Taras Sue Attending Unavailable Taras Sue Consulting Unavailable Taras Sue Attending Unavailable Joshua Nazraio Attending Unavailable Boland, [place] Primary Care Unavailable Ailyn Robert Referring [facility] Taras Sue Attending Unavailable Taras Sue Consulting Unavailable Vinicius Sueolas F Admitting Unavailable Boland, Fredrick Primary Care Unavailable Heraclio Palacio Attending Unavailable Yoseph Fonseca Attending Unavailable Boland, Fredrick Primary Care Unavailable Suppan, Alok Referring Unavailable Yoseph Fonseca Attending Unavailable Boland, Fredrcik Primary Care Unavailable Whitley, Alok Referring Unavailable Boland, Fredrick Primary Care Unavailable JAMI ARANA Attending Unavailable Yoseph Fonseca Attending Unavailable [facility] Unavailable Doloresan, Alok Referring Unavailable Boland, Fredrick Primary Care Unavailable JAMI ARANA Referring Unavailable JAMI ARANA Attending Unavailable Donte Espinal Consulting Unavailable Donte Espinal Admitting Unavailable Boland, Fredrick Primary Care Unavailable Taras Sue Attending Unavailable Taras Seu Admitting Unavailable Joshua Hugo Attending Unavailable Boland, [...] [place] Referring Unavailable MARILINXOCHILT Attending Unavailable BOLAND, FRDERICK L Primary Care Unavailable MARILIN, XOCHILT Referring [...] Translations: [HYDROCODONE-ACETA MINOPHEN] [facility] Acetaminophen / HYDROcodone Drug Allergy [facility] (1 source) HYDROcodone Drug Allergy [facility] (1 source) Acetaminophen Drug Allergy 02-19-2025 [facility] (1 source) HYDROcodone Drug Allergy 02-19-2025 [facility] (1 source) oxyCODONE Drug Allergy 02-19-2025 [facility] Medications Current Medications Medication Drug [...] on above: Take 1 capsule by mo [facility] once daily. OTC NUTRITIONAL [...] Comment on above: Take 1 capsule by [facility] once daily. codeine phosphate 2 mg/ml / [...] every two hours as needed rizatriptan (MAXALT CANDY DIPPER HAND) 5 mg disintegrating tablet Indications: Ocular migraine [...] current use of drug therapy; Translations: [Other intermodal dispatcher (current) drug therapy] 05-20-2024 Episodic Other aftercare (1 source) Wound ; Translations: [Encounter for other specified surgical aftercare] 09-19-2024 Episodic Other aftercare (2 sources) Surgical follow-up; Translations: [Encounter for removal of sutures] 09-19-2024 Episodic Other aftercare (1 source) Long-term current use of aspirin; Translations: [continuous churn buttermaker (current) use of aspirin] 09-19-2024 Episodic Other aftercare (2 sources) Long-term current use of anticoagulant; Translations: [MCC (current) use of anticoagulants] 09-19-2024 Episodic Other aftercare (2 sources) Other intermodal dispatcher (current) drug therapy; Translations: [Other intermodal dispatcher (current) drug therapy] Onset: 5 Episodic Other aftercare (1 source) MCC (current) use of aspirin; Translations: [continuous churn buttermaker (current) use of aspirin] Onset: 5 Episodic Other aftercare (5 sources) MCC (current) use of anticoagulants; Translations: [MCC (current) use of anticoagulants] Onset: 5 Episodic Other aftercare (1 source) MCC (current) use of insulin; Translations: [continuous churn buttermaker (current) use of insulin] Onset: Episodic Other [...] limb ischemia 09-19-2024 Unclassified (1 source) Colonoscopy Paving Block Cutter Onset: 5 11-08-2024 Unclassified (1 source) Long-term [...] (20 sources) Patient encounter status; Translations: [Other intermediate (current) drug therapy] Onset: 08-21-2024 Episodic Other aftercare (20 sources) Drug therapy finding; Translations: [MCC (current) use of anticoagulants] Onset: 08-20-2024 08-20-2024 Episodic Other aftercare (20 sources) Insulin dose changed; Translations: [continuous churn buttermaker (current) use of insulin] Onset: 08-30-2024 08-31-2024 [...] CNOV Office Visit (SPAGWO ) DALY EVANS ([id number]) 1985 F CHT Date Time Provider Department 05/02/25 9:00 AM KARTHIK MALDONADO During your visit today, we recorded the following information about you: Pulse Respiration Normal [facility] Ova and Parasites 8623on OP Normal [facility] Comment on above: Performed By: #### M 600.5000 ####[facility] [address] [place], [place], [phone] Prothrombin Time w/INRon INR Normal [facility] Comment on above: Result Comment: Antoine sanches via OM: Order cancelled - Patient discharged Performed By: #### L 300.3900 ####[facility] [address] [place], [address] PROTIME Normal 11.7-14.9 [facility] Comment on above: Result Comment: Antoine sanches via OM: Order cancelled - Patient discharged Performed By: #### L 300.3900 ####[facility] [address] [place], [address] Prothrombin Time w/INRon INR Normal [facility] Comment on above: Result Comment: Canc elled via OM: Order cancelled - Patient discharged Performed By: #### L 300.3900 ####[facility] [address] [place], [address] PROTIME Normal 11.7-14.9 [facility] Comment on above: Result Comment: Canc elled via OM: Order cancelled - Patient discharged Performed By: #### L 300.3900 ####[facility] [address] [place], [address] Basic Metabolic Profile (BMP )on 02-23-2025 BUN/CRE UNABLE TO CALCULATE Low 10-20 [facility] Comment on above: Performed By: #### L 500.2500 ####[facility] [address] [place], [address] Calcium [Mass/Vol] 7.1 mg/dL Low 7.6-11.0 [facility] Comment on above: Performed By: #### L 500.2500 ####[facility] [address] [place], [address] Chloride [Moles/Vol] 109 mmol/L High 98-108 [facility] Comment on above: Performed By: #### L 500.2500 ####[facility] [address] [place], [address] CO2 [Moles/Vol] 25.8 mmol/L Normal 21.0-32.0 [facility] Comment on above: Performed By: #### L 500.2500 ####[facility] [address] [place], [address] Creatinine [Mass/Vol] 0.67 mg/dL Low 0.70-1.20 [facility] Comment on above: Performed By: #### L 500.2500 ####[facility] [address] [place], [address] ECRCL 123.02 ml/min Normal 50-250 [facility] Comment on above: Performed By: #### L 500.2500 ####[facility] [address] [place], [address] GAP 7 Normal 5-15 [facility] Comment on above: Performed By: #### L 500.2500 ####[facility] [address] [place], [address] GFR/1.73 sq M.predicted among non-blacks MDRD (S/P/Bld) [Vol rate/Area] 113 mL/min/{1.73_m2} Normal >60 [facility] Comment on above: Result Comment: mL/m in/1.73m2 CKD-EPI Creatinine Equation (2020) Performed By: #### L 500.2500 ####[facility] [address] [place], [address] Glucose [Mass/Vol] 136 mg/dL High 70-99 [facility] Comment on above: Performed By: #### L 500.2500 ####[facility] [address] [place], [address] Potassium [Moles/Vol] 3.2 mmol/L Low 3.3-5.1 [facility] Comment on above: Performed By: #### L 500.2500 ####[facility] [address] [place], [address] Sodium [Moles/Vol] 142 mmol/L Normal 133-145 [facility] Comment on above: Performed By: #### L 500.2500 ####[facility] [address] [place], [address] Urea nitrogen [Mass/Vol] mg/dL Low 4-19 [facility] Comment on above: Performed By: #### L 500.2500 ####[facility] [address] [place], [address] BUN/CRE 3.5 RATIO Low 10-20 [facility] Comment on above: Performed By: #### L 100.0100, L500.2500, L501.2300, L501.5200 ####[facility] [address] [place], [address] Calcium [Mass/Vol] 7.6 mg/dL Normal 7.6-11.0 [facility] Comment on above: Performed By: #### L 100.0100, L500.2500, L501.2300, L501.5200 ####[facility] [address] [place], [address] Chloride [Moles/Vol] 108 mmol/L Normal 98-108 [facility] Comment on above: Performed By: #### L 100.0100, L500.2500, L501.2300, L501.5200 ####[facility] [address] [place], [address] CO2 [Moles/Vol] 22.5 mmol/L Normal 21.0-32.0 [facility] Comment on above: Performed By: #### L 100.0100, L500.2500, L501.2300, L501.5200 ####[facility] [address] [place], [address] Creatinine [Mass/Vol] 0.69 mg/dL Low 0.70-1.20 [facility] Comment on above: Performed By: #### L 100.0100, L500.2500, L501.2300, L501.5200 ####[facility] [address] [place], [address] ECRCL 119.04 ml/min Normal 50-250 [facility] Comment on above: Performed By: #### L 100.0100, L500.2500, L501.2300, L501.5200 ####[facility] [address] [place], [address] GAP 11 Normal 5-15 [facility] Comment on above: Performed By: #### L 100.0100, L500.2500, L501.2300, L501.5200 ####[facility] [address] [place], [address] GFR/1.73 sq M.predicted among non-blacks MDRD (S/P/Bld) [Vol rate/Area] 112 mL/min/{1.73_m2} Normal >60 [facility] Comment on above: Result Comment: mL/m in/1.73m2 CKD-EPI Creatinine Equation (2020) Performed By: #### L 100.0100, L500.2500, L501.2300, L501.5200 ####[facility] [address] [place], [address] Glucose [Mass/Vol] 112 mg/dL High 70-99 [facility] Comment on above: Performed By: #### L 100.0100, L500.2500, L501.2300, L501.5200 ####[facility] [address] [place], [address] Potassium [Moles/Vol] 2.9 mmol/L Low 3.3-5.1 [facility] Comment on above: Performed By: #### L 100.0100, L500.2500, L501.2300, L501.5200 ####[facility] [address] [place], [address] Sodium [Moles/Vol] 141 mmol/L Normal 133-145 [facility] Comment on above: Performed By: #### L 100.0100, L500.2500, L501.2300, L501.5200 ####[facility] [address] [place], [address] Urea nitrogen [Mass/Vol] 2 mg/dL Low 4-19 [facility] Comment on above: Performed By: #### L 100.0100, L500.2500, L501.2300, L501.5200 ####[facility] [address] [place], [address] CBC W/Diff, Automatedon 08-3 0-5 Absolute Lymph 1.51 X10 3/uL Normal 0.83-4.51 [facility] Comment on above: Performed By: #### L 100.0100, L500.2500, L501.2300, L501.5200 ####[facility] [address] [place], [address] Absolute Neut 3.3 X10 3/uL Normal 2.0-7.7 [facility] Comment on above: Performed By: #### L 100.0100, L500.2500, L501.2300, L501.5200 ####[facility] [address] [place], [address] Basophils/100 WBC (Bld) 0.6 % Normal 0-1 [facility] Comment on above: Performed By: #### L 100.0100, L500.2500, L501.2300, L501.5200 ####[facility] [address] [place], [address] Eosinophils/100 WBC (Bld) 2.6 % Normal 0-5 [facility] Comment on above: Performed By: #### L 100.0100, L500.2500, L501.2300, L501.5200 ####[facility] [address] [place], [address] Erythrocyte distribution width (RBC) [Ratio] 14.6 % Normal 11.6-14.6 [facility] Comment on above: Performed By: #### L 100.0100, L500.2500, L501.2300, L501.5200 ####[facility] [address] [place], [address] Hematocrit (Bld) [Volume fraction] 31.3 % Low 37-47 [facility] Comment on above: Performed By: #### L 100.0100, L500.2500, L501.2300, L501.5200 ####[facility] [address] [place], [address] Hemoglobin (Bld) [Mass/Vol] 10.2 g/dL Low 12.0-15.0 [facility] Comment on above: Performed By: #### L 100.0100, L500.2500, L501.2300, L501.5200 ####[facility] [address] [place], [address] IG% 0.200 Normal 0.0-0.9 [facility] Comment on above: Result Comment: IG% - Immature Granulocytes (promyelocytes, myelocytes andmetamyelocytes) > 1% indicates that a LEFT SHIFT is Present. Performed By: #### L 100.0100, L500.2500, L501.2300, L501.5200 ####[facility] [address] [place], [address] Lymphocytes/100 WBC (Bld) 28.3 % Normal 19-41 [facility] Comment on above: Performed By: #### L 100.0100, L500.2500, L501.2300, L501.5200 ####[facility] [address] [place], [address] MCH (RBC) [Entitic mass] 27.3 pg Normal 27.0-32.0 [facility] Comment on above: Performed By: #### L 100.0100, L500.2500, L501.2300, L501.5200 ####[facility] [address] [place], [address] MCHC (RBC) [Mass/Vol] 32.6 g/dL Normal 32-36 [facility] Comment on above: Performed By: #### L 100.0100, L500.2500, L501.2300, L501.5200 ####[facility] [address] [place], [address] MCV (RBC) [Entitic vol] 83.7 fL Normal 81-99 [facility] Comment on above: Performed By: #### L 100.0100, L500.2500, L501.2300, L501.5200 ####[facility] [address] [place], [address] Monocytes/100 WBC (Bld) 7.5 % Normal 0-10 [facility] Comment on above: Performed By: #### L 100.0100, L500.2500, L501.2300, L501.5200 ####[facility] [address] [place], [address] Neutrophils/100 WBC (Bld) 60.8 % Normal 47-70 [facility] Comment on above: Performed By: #### L 100.0100, L500.2500, L501.2300, L501.5200 ####[facility] [address] [place], [address] Nucleated RBC (Bld) [#/Vol] 0 10*3/uL Normal 0-5 [facility] Comment on above: Performed By: #### L 100.0100, L500.2500, L501.2300, L501.5200 ####[facility] [address] [place], [address] Platelet mean volume (Bld) [Entitic vol] 9.4 fL Normal 6.2-12.0 [facility] Comment on above: Performed By: #### L 100.0100, L500.2500, L501.2300, L501.5200 ####[facility] [address] [place], [address] Platelets (Bld) [#/Vol] 297 10*3/uL Normal 150-450 [facility] Comment on above: Performed By: #### L 100.0100, L500.2500, L501.2300, L501.5200 ####[facility] [address] [place], [address] RBC (Bld) [#/Vol] 3.74 10*6/uL Low 4.2-5.4 [facility] Comment on above: Performed By: #### L 100.0100, L500.2500, L501.2300, L501.5200 ####[facility] [address] [place], [address] RDW SD 44.8 fl High 35.1-43.9 [facility] Comment on above: Performed By: #### L 100.0100, L500.2500, L501.2300, L501.5200 ####[facility] [address] [place], [address] WBC (Bld) [#/Vol] 5.3 10*3/uL Normal 4.4-11.0 [facility] Comment on above: Performed By: #### L 100.0100, L500.2500, L501.2300, L501.5200 ####[facility] [address] [place], [address] Discharge Instructionon 08-3 Discharge Instruction Normal [facility] Magnesiumon 02-23-2025 Magnesium [Mass/Vol] 1.6 mg/dL Normal 1.5-2.2 [facility] Comment on above: Performed By: #### L 100.0100, L500.2500, L501.2300, L501.5200 ####[facility] [address] [place], [address] Phosphoruson 02-23-2025 Phosphate [Mass/Vol] 3.4 mg/dL Normal 2.7-4.5 [facility] Comment on above: Performed By: #### L 100.0100, L500.2500, L501.2300, L501.5200 ####[facility] [address] [place], [address] Prothrombin Time w/INRon INR Coag (PPP) [Relative time] 1.7 {INR} Normal [facility] Comment on above: Performed By: #### L 300.3900 ####[facility] [address] [place], [address] PT Coag (PPP) [Time] 20.0 s High 11.7-14.9 [facility] Comment on above: Performed By: #### L 300.3900 ####[facility] [address] [place], [address] Basic Metabolic Profile (BMP )on 02-22-2025 BUN/CRE UNABLE TO CALCULATE Low 10-20 [facility] Comment on above: Performed By: #### L 500.2500 ####[facility] [address] [place], [address] Calcium [Mass/Vol] 7.9 mg/dL Normal 7.6-11.0 [facility] Comment on above: Performed By: #### L 500.2500 ####[facility] [address] [place], [address] Chloride [Moles/Vol] 109 mmol/L High 98-108 [facility] Comment on above: Performed By: #### L 500.2500 ####[facility] [address] [place], [address] CO2 [Moles/Vol] 25.1 mmol/L Normal 21.0-32.0 [facility] Comment on above: Performed By: #### L 500.2500 ####[facility] [address] [place], [address] Creatinine [Mass/Vol] 0.77 mg/dL Normal 0.70-1.20 [facility] Comment on above: Performed By: #### L 500.2500 ####[facility] [address] [place], [address] ECRCL 106.68 ml/min Normal 50-250 [facility] Comment on above: Performed By: #### L 500.2500 ####[facility] [address] [place], [address] GAP 11 Normal 5-15 [facility] Comment on above: Performed By: #### L 500.2500 ####[facility] [address] [place], [address] GFR/1.73 sq M.predicted among non-blacks MDRD (S/P/Bld) [Vol rate/Area] 100 mL/min/{1.73_m2} Normal >60 [facility] Comment on above: Result Comment: mL/m in/1.73m2 CKD-EPI Creatinine Equation (2020) Performed By: #### L 500.2500 ####[facility] [address] [place], [address] Glucose [Mass/Vol] 143 mg/dL High 70-99 [facility] Comment on above: Performed By: #### L 500.2500 ####[facility] [address] [place], [address] Potassium [Moles/Vol] 2.9 mmol/L Low 3.3-5.1 [facility] Comment on above: Performed By: #### L 500.2500 ####[facility] [address] [place], [address] Sodium [Moles/Vol] 145 mmol/L Normal 133-145 [facility] Comment on above: Performed By: #### L 500.2500 ####[facility] [address] [place], [address] Urea nitrogen [Mass/Vol] mg/dL Low 4-19 [facility] Comment on above: Performed By: #### L 500.2500 ####[facility] [address] [place], [address] BUN/CRE UNABLE TO CALCULATE Low 10-20 [facility] Comment on above: Performed By: #### L 100.0100, L500.2500 ####[facility] [address] [place], [address] Calcium [Mass/Vol] 7.6 mg/dL Normal 7.6-11.0 [facility] Comment on above: Performed By: #### L 100.0100, L500.2500 ####[facility] [address] [place], [address] Chloride [Moles/Vol] 105 mmol/L Normal 98-108 [facility] Comment on above: Performed By: #### L 100.0100, L500.2500 ####[facility] [address] [place], [address] CO2 [Moles/Vol] 25.4 mmol/L Normal 21.0-32.0 [facility] Comment on above: Performed By: #### L 100.0100, L500.2500 ####[facility] [address] [place], [address] Creatinine [Mass/Vol] 0.73 mg/dL Normal 0.70-1.20 [facility] Comment on above: Performed By: #### L 100.0100, L500.2500 ####[facility] [address] [place], [address] ECRCL 112.52 ml/min Normal 50-250 [facility] Comment on above: Performed By: #### L 100.0100, L500.2500 ####[facility] [address] [place], [address] GAP 10 Normal 5-15 [facility] Comment on above: Performed By: #### L 100.0100, L500.2500 ####[facility] [address] [place], [address] GFR/1.73 sq M.predicted among non-blacks MDRD (S/P/Bld) [Vol rate/Area] 106 mL/min/{1.73_m2} Normal >60 [facility] Comment on above: Result Comment: mL/m in/1.73m2 CKD-EPI Creatinine Equation (2020) Performed By: #### L 100.0100, L500.2500 ####[facility] [address] [place], [address] Glucose [Mass/Vol] 121 mg/dL High 70-99 [facility] Comment on above: Performed By: #### L 100.0100, L500.2500 ####[facility] [address] [place], [address] Potassium [Moles/Vol] 2.2 mmol/L Invalid Interpretation Code 3.3-5.1 [facility] Comment on above: Result Comment: Crit ical Result(s) Called at: 0637 by: PHIL JUAREZ TO RNAREAD. ??Results read back by same. Performed By: #### L 100.0100, L500.2500 ####[facility] [address] [place], [address] Sodium [Moles/Vol] 141 mmol/L Normal 133-145 [facility] Comment on above: Performed By: #### L 100.0100, L500.2500 ####[facility] [address] [place], [address] Urea nitrogen [Mass/Vol] mg/dL Low 4-19 [facility] Comment on above: Performed By: #### L 100.0100, L500.2500 ####[facility] [address] [place], [address] CBC W/Diff, Automatedon 01-26 Absolute Lymph 1.32 X10 3/uL Normal 0.83-4.51 [facility] Comment on above: Performed By: #### L 100.0100, L500.2500 ####[facility] [address] [place], [address] Absolute Neut 3.5 X10 3/uL Normal 2.0-7.7 [facility] Comment on above: Performed By: #### L 100.0100, L500.2500 ####[facility] [address] [place], [address] Basophils/100 WBC (Bld) 0.6 % Normal 0-1 [facility] Comment on above: Performed By: #### L 100.0100, L500.2500 ####[facility] [address] [place], [address] Eosinophils/100 WBC (Bld) 3.1 % Normal 0-5 [facility] Comment on above: Performed By: #### L 100.0100, L500.2500 ####[facility] [address] [place], [address] Erythrocyte distribution width (RBC) [Ratio] 14.6 % Normal 11.6-14.6 [facility] Comment on above: Performed By: #### L 100.0100, L500.2500 ####[facility] [address] [place], [address] Hematocrit (Bld) [Volume fraction] 31.7 % Low 37-47 [facility] Comment on above: Performed By: #### L 100.0100, L500.2500 ####[facility] [address] [place], [address] Hemoglobin (Bld) [Mass/Vol] 10.5 g/dL Low 12.0-15.0 [facility] Comment on above: Performed By: #### L 100.0100, L500.2500 ####[facility] [address] [place], [address] IG% 0.200 Normal 0.0-0.9 [facility] Comment on above: Result Comment: IG% - Immature Granulocytes (promyelocytes, myelocytes andmetamyelocytes) > 1% indicates that a LEFT SHIFT is Present. Performed By: #### L 100.0100, L500.2500 ####[facility] [address] [place], [address] Lymphocytes/100 WBC (Bld) 24.4 % Normal 19-41 [facility] Comment on above: Performed By: #### L 100.0100, L500.2500 ####[facility] [address] [place], [address] MCH (RBC) [Entitic mass] 27.1 pg Normal 27.0-32.0 [facility] Comment on above: Performed By: #### L 100.0100, L500.2500 ####[facility] [address] [place], [address] MCHC (RBC) [Mass/Vol] 33.1 g/dL Normal 32-36 [facility] Comment on above: Performed By: #### L 100.0100, L500.2500 ####[facility] [address] [place], [address] MCV (RBC) [Entitic vol] 81.9 fL Normal 81-99 [facility] Comment on above: Performed By: #### L 100.0100, L500.2500 ####[facility] [address] [place], [address] Monocytes/100 WBC (Bld) 7.8 % Normal 0-10 [facility] Comment on above: Performed By: #### L 100.0100, L500.2500 ####[facility] [address] [place], [address] Neutrophils/100 WBC (Bld) 63.9 % Normal 47-70 [facility] Comment on above: Performed By: #### L 100.0100, L500.2500 ####[facility] [address] [place], [address] Nucleated RBC (Bld) [#/Vol] 0 10*3/uL Normal 0-5 [facility] Comment on above: Performed By: #### L 100.0100, L500.2500 ####[facility] [address] [place], [address] Platelet mean volume (Bld) [Entitic vol] 9.3 fL Normal 6.2-12.0 [facility] Comment on above: Performed By: #### L 100.0100, L500.2500 ####[facility] [address] [place], [address] Platelets (Bld) [#/Vol] 315 10*3/uL Normal 150-450 [facility] Comment on above: Performed By: #### L 100.0100, L500.2500 ####[facility] [address] [place], [address] RBC (Bld) [#/Vol] 3.87 10*6/uL Low 4.2-5.4 [facility] Comment on above: Performed By: #### L 100.0100, L500.2500 ####[facility] [address] [place], [address] RDW SD 43.3 fl Normal 35.1-43.9 [facility] Comment on above: Performed By: #### L 100.0100, L500.2500 ####[facility] [address] [place], [address] WBC (Bld) [#/Vol] 5.4 10*3/uL Normal 4.4-11.0 [facility] Comment on above: Performed By: #### L 100.0100, L500.2500 ####[facility] [address] [place], [address] Prothrombin Time w/INRon INR Coag (PPP) [Relative time] 1.8 {INR} Normal [facility] Comment on above: Performed By: #### L 300.3900 ####[facility] [address] [place], [address] PT Coag (PPP) [Time] 21.2 s High 11.7-14.9 [facility] Comment on above: Performed By: #### L 300.3900 ####[facility] [address] [place], [address] Basic Metabolic Profile (BMP )on 02-21-2025 Urea nitrogen [Mass/Vol] 2 mg/dL Low 4-19 [facility] Comment on above: Performed By: #### L 500.2500 ####[facility] [address] [place], [address] CBC W/Diff, Automatedon 01-26 Absolute Lymph 1.41 X10 3/uL Normal 0.83-4.51 [facility] Comment on above: Performed By: #### L 100.0100, L300.3900, L500.4050 ####[facility] [address] [place], [address] Absolute Neut 3.5 X10 3/uL Normal 2.0-7.7 [facility] Comment on above: Performed By: #### L 100.0100, L300.3900, L500.4050 ####[facility] [address] [place], [address] Basophils/100 WBC (Bld) 0.4 % Normal 0-1 [facility] Comment on above: Performed By: #### L 100.0100, L300.3900, L500.4050 ####[facility] [address] [place], [address] Eosinophils/100 WBC (Bld) 1.8 % Normal 0-5 [facility] Comment on above: Performed By: #### L 100.0100, L300.3900, L500.4050 ####[facility] [address] [place], [address] Erythrocyte distribution width (RBC) [Ratio] 14.3 % Normal 11.6-14.6 [facility] Comment on above: Performed By: #### L 100.0100, L300.3900, L500.4050 ####[facility] [address] [place], [address] Hematocrit (Bld) [Volume fraction] 32.9 % Low 37-47 [facility] Comment on above: Performed By: #### L 100.0100, L300.3900, L500.4050 ####[facility] [address] [place], [address] Hemoglobin (Bld) [Mass/Vol] 11.0 g/dL Low 12.0-15.0 [facility] Comment on above: Performed By: #### L 100.0100, L300.3900, L500.4050 ####[facility] [address] [place], [address] IG% 0.200 Normal 0.0-0.9 [facility] Comment on above: Result Comment: IG% - Immature Granulocytes (promyelocytes, myelocytes andmetamyelocytes) > 1% indicates that a LEFT SHIFT is Present. Performed By: #### L 100.0100, L300.3900, L500.4050 ####[facility] [address] [place], [address] Lymphocytes/100 WBC (Bld) 25.9 % Normal 19-41 [facility] Comment on above: Performed By: #### L 100.0100, L300.3900, L500.4050 ####[facility] [address] [place], [address] MCH (RBC) [Entitic mass] 27.4 pg Normal 27.0-32.0 [facility] Comment on above: Performed By: #### L 100.0100, L300.3900, L500.4050 ####[facility] [address] [place], [address] MCHC (RBC) [Mass/Vol] 33.4 g/dL Normal 32-36 [facility] Comment on above: Performed By: #### L 100.0100, L300.3900, L500.4050 ####[facility] [address] [place], [address] MCV (RBC) [Entitic vol] 82.0 fL Normal 81-99 [facility] Comment on above: Performed By: #### L 100.0100, L300.3900, L500.4050 ####[facility] [address] [place], [address] Monocytes/100 WBC (Bld) 7.5 % Normal 0-10 [facility] Comment on above: Performed By: #### L 100.0100, L300.3900, L500.4050 ####[facility] [address] [place], [address] Neutrophils/100 WBC (Bld) 64.2 % Normal 47-70 [facility] Comment on above: Performed By: #### L 100.0100, L300.3900, L500.4050 ####[facility] [address] [place], [address] Nucleated RBC (Bld) [#/Vol] 0 10*3/uL Normal 0-5 [facility] Comment on above: Performed By: #### L 100.0100, L300.3900, L500.4050 ####[facility] [address] [place], [address] Platelet mean volume (Bld) [Entitic vol] 9.5 fL Normal 6.2-12.0 [facility] Comment on above: Performed By: #### L 100.0100, L300.3900, L500.4050 ####[facility] [address] [place], [address] Platelets (Bld) [#/Vol] 322 10*3/uL Normal 150-450 [facility] Comment on above: Performed By: #### L 100.0100, L300.3900, L500.4050 ####[facility] [address] [place], [address] RBC (Bld) [#/Vol] 4.01 10*6/uL Low 4.2-5.4 [facility] Comment on above: Performed By: #### L 100.0100, L300.3900, L500.4050 ####[facility] [address] [place], [address] RDW SD 42.4 fl Normal 35.1-43.9 [facility] Comment on above: Performed By: #### L 100.0100, L300.3900, L500.4050 ####[facility] [address] [place], [address] WBC (Bld) [#/Vol] 5.5 10*3/uL Normal 4.4-11.0 [facility] Comment on above: Performed By: #### L 100.0100, L300.3900, L500.4050 ####[facility] [address] [place], [address] Comprehensive Metabolic Prof ilon 02-21-2025 Potassium [Moles/Vol] 2.1 mmol/L Invalid Interpretation Code 3.3-5.1 [facility] Comment on above: Result Comment: Crit ical Result(s) Called at: 05:08 02-21-25 TO YISSEL by:??SHEN CASE Results read back by same. AMENDED REPORT 02/21/25 0510 K previously reported as: 2.2 *L mmol/LCritical Result(s) Called at: 05:08 02-21-25 TO DAVID by:??SHEN CASE Results read back by same. Performed By: #### L 100.0100, L300.3900, L500.4050 ####[facility] [address] [place], [address] ENTERIC PATHOGEN PANEL STOOL on 02-21-2025 EP PANEL Normal [facility] Comment on above: Performed By: #### M 100.0605, M100.6796, M100.637 ####[facility] [address] [place], [address] Hepatitis Panel Acuteon 01-26 COMMENT Comment Normal . [facility] Comment on above: Result Comment: Not infected with HCV unless early or acute infection issuspected (which may be delayed in an immunocompromisedindividual), or other evidence exists to indicate HCVinfection.Performed at: - [facility] [id number] Director: Christian Alfaro PhD, Phone: [phone] Performed By: #### L 501.9520, L503.6550, L506.0200, L503.6030, L3000.0375 ####[facility] [address] [place], [address] HEP B CORE,IgM Negative Normal Negative [facility] Comment on above: Performed By: #### L 501.9520, L503.6550, L506.0200, L503.6030, L3000.0375 ####[facility] [address] [place], [address] HEP B SURF AG Negative Normal Negative [facility] Comment on above: Performed By: #### L 501.9520, L503.6550, L506.0200, L503.6030, L3000.0375 ####[facility] [address] [place], [address] HEP C VIRUS AB Non-Reactive Normal Non Reactive [facility] Comment on above: Performed By: #### L 501.9520, L503.6550, L506.0200, L503.6030, L3000.0375 ####[facility] [address] [place], [address] HEPATITIS A-IgM Negative Normal Negative [facility] Comment on above: Result Comment: A ne gative anti-HAV IgM result suggests no recent orcurrent HAV infection. Performed By: #### L 501.9520, L503.6550, L506.0200, L503.6030, L3000.0375 ####[facility] [address] [place], [address] Magnesiumon 02-21-2025 Magnesium [Mass/Vol] 1.8 mg/dL Normal 1.5-2.2 [facility] Comment on above: Order Comment: *ADD ON Performed By: #### L 501.2300, L501.5200 ####[facility] [address] [place], [address] Phosphoruson 02-21-2025 Phosphate [Mass/Vol] 3.7 mg/dL Normal 2.7-4.5 [facility] Comment on above: Order Comment: *ADD ON Performed By: #### L 501.2300, L501.5200 ####[facility] [address] [place], [address] Prothrombin Time w/INRon INR Coag (PPP) [Relative time] 1.6 {INR} Normal [facility] Comment on above: Performed By: #### L 100.0100, L300.3900, L500.4050 ####[facility] [address] [place], [address] PT Coag (PPP) [Time] 18.9 s High 11.7-14.9 [facility] Comment on above: Performed By: #### L 100.0100, L300.3900, L500.4050 ####[facility] [address] [place], [address] CBC W/Diff, Automatedon 08-2 Absolute Lymph 1.96 X10 3/uL Normal 0.83-4.51 [facility] Comment on above: Performed By: #### L 100.0100, L501.2300 ####[facility] [address] [place], [address] Absolute Neut 4.8 X10 3/uL Normal 2.0-7.7 [facility] Comment on above: Performed By: #### L 100.0100, L501.2300 ####[facility] [address] [place], [address] Basophils/100 WBC (Bld) 0.4 % Normal 0-1 [facility] Comment on above: Performed By: #### L 100.0100, L501.2300 ####[facility] [address] [place], [address] Eosinophils/100 WBC (Bld) 2.2 % Normal 0-5 [facility] Comment on above: Performed By: #### L 100.0100, L501.2300 ####[facility] [address] [place], [address] Erythrocyte distribution width (RBC) [Ratio] 14.3 % Normal 11.6-14.6 [facility] Comment on above: Performed By: #### L 100.0100, L501.2300 ####[facility] [address] [place], [address] Hematocrit (Bld) [Volume fraction] 35.1 % Low 37-47 [facility] Comment on above: Performed By: #### L 100.0100, L501.2300 ####[facility] [address] [place], [address] Hemoglobin (Bld) [Mass/Vol] 11.7 g/dL Low 12.0-15.0 [facility] Comment on above: Performed By: #### L 100.0100, L501.2300 ####[facility] [address] [place], [address] IG% 0.300 Normal 0.0-0.9 [facility] Comment on above: Result Comment: IG% - Immature Granulocytes (promyelocytes, myelocytes andmetamyelocytes) > 1% indicates that a LEFT SHIFT is Present. Performed By: #### L 100.0100, L501.2300 ####[facility] [address] [place], [address] Lymphocytes/100 WBC (Bld) 26.4 % Normal 19-41 [facility] Comment on above: Performed By: #### L 100.0100, L501.2300 ####[facility] [address] [place], [address] MCH (RBC) [Entitic mass] 27.1 pg Normal 27.0-32.0 [facility] Comment on above: Performed By: #### L 100.0100, L501.2300 ####[facility] [address] [place], [address] MCHC (RBC) [Mass/Vol] 33.3 g/dL Normal 32-36 [facility] Comment on above: Performed By: #### L 100.0100, L501.2300 ####[facility] [address] [place], [address] MCV (RBC) [Entitic vol] 81.3 fL Normal 81-99 [facility] Comment on above: Performed By: #### L 100.0100, L501.2300 ####[facility] [address] [place], [address] Monocytes/100 WBC (Bld) 5.9 % Normal 0-10 [facility] Comment on above: Performed By: #### L 100.0100, L501.2300 ####[facility] [address] [place], [address] Neutrophils/100 WBC (Bld) 64.8 % Normal 47-70 [facility] Comment on above: Performed By: #### L 100.0100, L501.2300 ####[facility] [address] [place], [address] Nucleated RBC (Bld) [#/Vol] 0 10*3/uL Normal 0-5 [facility] Comment on above: Performed By: #### L 100.0100, L501.2300 ####[facility] [address] [place], [address] Platelet mean volume (Bld) [Entitic vol] 9.3 fL Normal 6.2-12.0 [facility] Comment on above: Performed By: #### L 100.0100, L501.2300 ####[facility] [address] [place], [address] Platelets (Bld) [#/Vol] 340 10*3/uL Normal 150-450 [facility] Comment on above: Performed By: #### L 100.0100, L501.2300 ####[facility] [address] [place], [address] RBC (Bld) [#/Vol] 4.32 10*6/uL Normal 4.2-5.4 [facility] Comment on above: Performed By: #### L 100.0100, L501.2300 ####[facility] [address] [place], [address] RDW SD 42.0 fl Normal 35.1-43.9 [facility] Comment on above: Performed By: #### L 100.0100, L501.2300 ####[facility] [address] [place], [address] WBC (Bld) [#/Vol] 7.4 10*3/uL Normal 4.4-11.0 [facility] Comment on above: Performed By: #### L 100.0100, L501.2300 ####[facility] [address] [place], [address] CDIFF (PCR)on 02-20-2025 CDIFF Normal [facility] Comment on above: Performed By: #### M 100.0605, M100.6796, M100.637 ####[facility] [address] [place], [address] Comprehensive Metabolic Prof ilon 02-20-2025 Albumin [Mass/Vol] 3.0 g/dL Low 3.5-5.0 [facility] Comment on above: Performed By: #### L 300.3900, L501.5200, L500.4050 ####[facility] [address] [place], [address] Albumin/Globulin [Mass ratio] 1.1 {ratio} Normal 0.9-2.4 [facility] Comment on above: Performed By: #### L 300.3900, L501.5200, L500.4050 ####[facility] [address] [place], [address] ALK PHOS 154 U/L High 35-104 [facility] Comment on above: Performed By: #### L 300.3900, L501.5200, L500.4050 ####[facility] [address] [place], [address] ALT [Catalytic activity/Vol] 129 U/L High <=34 [facility] Comment on above: Performed By: #### L 300.3900, L501.5200, L500.4050 ####[facility] [address] [place], [address] AST [Catalytic activity/Vol] 288 U/L High <=31 [facility] Comment on above: Performed By: #### L 300.3900, L501.5200, L500.4050 ####[facility] [address] [place], [address] Bilirubin [Mass/Vol] 0.68 mg/dL Normal 0.00-1.30 [facility] Comment on above: Performed By: #### L 300.3900, L501.5200, L500.4050 ####[facility] [address] [place], [address] BUN/CRE 3.5 RATIO Low 10-20 [facility] Comment on above: Performed By: #### L 300.3900, L501.5200, L500.4050 ####[facility] [address] [place], [address] Calcium [Mass/Vol] 7.3 mg/dL Low 7.6-11.0 [facility] Comment on above: Performed By: #### L 300.3900, L501.5200, L500.4050 ####[facility] [address] [place], [address] Chloride [Moles/Vol] 109 mmol/L High 98-108 [facility] Comment on above: Performed By: #### L 300.3900, L501.5200, L500.4050 ####[facility] [address] [place], [address] CO2 [Moles/Vol] 20.7 mmol/L Low 21.0-32.0 [facility] Comment on above: Performed By: #### L 300.3900, L501.5200, L500.4050 ####[facility] [address] [place], [address] Creatinine [Mass/Vol] 0.84 mg/dL Normal 0.70-1.20 [facility] Comment on above: Performed By: #### L 300.3900, L501.5200, L500.4050 ####[facility] [address] [place], [address] ECRCL 99.18 ml/min Normal 50-250 [facility] Comment on above: Performed By: #### L 300.3900, L501.5200, L500.4050 ####[facility] [address] [place], [address] GAP 13 Normal 5-15 [facility] Comment on above: Performed By: #### L 300.3900, L501.5200, L500.4050 ####[facility] [address] [place], [address] GFR/1.73 sq M.predicted among non-blacks MDRD (S/P/Bld) [Vol rate/Area] 90 mL/min/{1.73_m2} Normal >60 [facility] Comment on above: Result Comment: mL/m in/1.73m2 CKD-EPI Creatinine Equation (2020) Performed By: #### L 300.3900, L501.5200, L500.4050 ####[facility] [address] [place], [address] Globulin (S) [Mass/Vol] 2.7 g/dL Normal 2.2-4.2 [facility] Comment on above: Performed By: #### L 300.3900, L501.5200, L500.4050 ####[facility] [address] [place], [address] Glucose [Mass/Vol] 100 mg/dL High 70-99 [facility] Comment on above: Performed By: #### L 300.3900, L501.5200, L500.4050 ####[facility] [address] [place], [address] Potassium [Moles/Vol] 2.1 mmol/L Invalid Interpretation Code 3.3-5.1 [facility] Comment on above: Result Comment: Crit ical Result(s) Called at: by: CLAUDIA GARZA??Resultsread back by same. Performed By: #### L 300.3900, L501.5200, L500.4050 ####[facility] [address] [place], [address] Sodium [Moles/Vol] 143 mmol/L Normal 133-145 [facility] Comment on above: Performed By: #### L 300.3900, L501.5200, L500.4050 ####[facility] [address] [place], [address] T PROT 5.7 g/dL Low 5.9-8.4 [facility] Comment on above: Performed By: #### L 300.3900, L501.5200, L500.4050 ####[facility] [address] [place], [address] Urea nitrogen [Mass/Vol] 3 mg/dL Low 4-19 [facility] Comment on above: Performed By: #### L 300.3900, L501.5200, L500.4050 ####[facility] [address] [place], [address] Folates,Serum (Folic Acid)on 02-20-2025 FOLATES,SERUM 13.60 ng/mL Normal 4.60-34.80 [facility] Comment on above: Order Comment: TY2 3 A Result Comment: Hemo lysis, Results will be affected, Requires Recollection. AMENDED REPORT 02/20/25 0009 FOLATES,SERUM previously reported as: 13.60 ng/mL Performed By: #### L 501.9520, L503.6550, L506.0200, L503.6030, L3000.0375 ####[facility] [address] [place], [address] Iron+Iron Binding Capacityon 02-20-2025 Iron [Mass/Vol] 68 ug/dL Normal 50-170 [facility] Comment on above: Performed By: #### L 501.9520, L503.6550, L506.0200, L503.6030, L3000.0375 ####[facility] [address] [place], [address] IRON SATURATION 23.0 Normal 13-59 [facility] Comment on above: Performed By: #### L 501.9520, L503.6550, L506.0200, L503.6030, L3000.0375 ####[facility] [address] [place], [address] TIBC 299 ug/dL Normal 250-450 [facility] Comment on above: Performed By: #### L 501.9520, L503.6550, L506.0200, L503.6030, L3000.0375 ####[facility] [address] [place], [address] UIBC 231 ug/dL Normal 228-428 [facility] Comment on above: Performed By: #### L 501.9520, L503.6550, L506.0200, L503.6030, L3000.0375 ####[facility] [address] [place], [address] L501.2276on 02-20-2025 Ionized Calcium 1.06 mmol/L Low 1.09-1.30 [facility] Comment on above: Performed By: #### L 501.2276 ####[facility] [address] [place], [address] Magnesiumon 02-20-2025 Magnesium [Mass/Vol] 2.0 mg/dL Normal 1.5-2.2 [facility] Comment on above: Performed By: #### L 300.3900, L501.5200, L500.4050 ####[facility] [address] [place], [address] Phosphoruson 02-20-2025 Phosphate [Mass/Vol] 3.6 mg/dL Normal 2.7-4.5 [facility] Comment on above: Performed By: #### L 100.0100, L501.2300 ####[facility] [address] [place], [address] Prothrombin Time w/INRon INR Coag (PPP) [Relative time] 1.5 {INR} Normal [facility] Comment on above: Performed By: #### L 300.3900, L501.5200, L500.4050 ####[facility] [address] [place], [address] PT Coag (PPP) [Time] 18.8 s High 11.7-14.9 [facility] Comment on above: Performed By: #### L 300.3900, L501.5200, L500.4050 ####[facility] [address] [place], [address] Stool Lactoferrin/WBCon 2 WBCST Normal [facility] Comment on above: Performed By: #### M 100.0605, M100.8496, M100.637 ####[facility] [address] [place], [address] Stool Occult Blood iFOBon STOB Negative Normal [facility] Comment on above: Performed By: #### M 100.7900 ####[facility] [address] [place], [address] Vitamin B12on 02-20-2025 Cobalamin (Vitamin B12) [Mass/Vol] 471 pg/mL Normal 180-914 [facility] Comment on above: Performed By: #### L 503.0106 ####[facility] [address] [place], [address] CBC W/Diff, Automatedon 01-26 Absolute Lymph 2.51 X10 3/uL Normal 0.83-4.51 [facility] Comment on above: Performed By: #### L 100.0100, L503.6005, L500.4050, L501.2450, L501.3620 ####[facility] [address] [place], [address] Absolute Neut 6.1 X10 3/uL Normal 2.0-7.7 [facility] Comment on above: Performed By: #### L 100.0100, L503.6005, L500.4050, L501.2450, L501.3620 ####[facility] [address] [place], [address] Basophils/100 WBC (Bld) 0.5 % Normal 0-1 [facility] Comment on above: Performed By: #### L 100.0100, L503.6005, L500.4050, L501.2450, L501.3620 ####[facility] [address] [place], [address] Eosinophils/100 WBC (Bld) 1.4 % Normal 0-5 [facility] Comment on above: Performed By: #### L 100.0100, L503.6005, L500.4050, L501.2450, L501.3620 ####[facility] [address] [place], [address] Erythrocyte distribution width (RBC) [Ratio] 14.3 % Normal 11.6-14.6 [facility] Comment on above: Performed By: #### L 100.0100, L503.6005, L500.4050, L501.2450, L501.3620 ####[facility] [address] [place], [address] Hematocrit (Bld) [Volume fraction] 38.8 % Normal 37-47 [facility] Comment on above: Performed By: #### L 100.0100, L503.6005, L500.4050, L501.2450, L501.3620 ####[facility] [address] [place], [address] Hemoglobin (Bld) [Mass/Vol] 13.0 g/dL Normal 12.0-15.0 [facility] Comment on above: Performed By: #### L 100.0100, L503.6005, L500.4050, L501.2450, L501.3620 ####[facility] [address] [place], [address] IG% 0.300 Normal 0.0-0.9 [facility] Comment on above: Result Comment: IG% - Immature Granulocytes (promyelocytes, myelocytes andmetamyelocytes) > 1% indicates that a LEFT SHIFT is Present. Performed By: #### L 100.0100, L503.6005, L500.4050, L501.2450, L501.3620 ####[facility] [address] [place], [address] Lymphocytes/100 WBC (Bld) 26.5 % Normal 19-41 [facility] Comment on above: Performed By: #### L 100.0100, L503.6005, L500.4050, L501.2450, L501.3620 ####[facility] [address] [place], [address] MCH (RBC) [Entitic mass] 27.3 pg Normal 27.0-32.0 [facility] Comment on above: Performed By: #### L 100.0100, L503.6005, L500.4050, L501.2450, L501.3620 ####[facility] [address] [place], [address] MCHC (RBC) [Mass/Vol] 33.5 g/dL Normal 32-36 [facility] Comment on above: Performed By: #### L 100.0100, L503.6005, L500.4050, L501.2450, L501.3620 ####[facility] [address] [place], [address] MCV (RBC) [Entitic vol] 81.5 fL Normal 81-99 [facility] Comment on above: Performed By: #### L 100.0100, L503.6005, L500.4050, L501.2450, L501.3620 ####[facility] [address] [place], [address] Monocytes/100 WBC (Bld) 7.3 % Normal 0-10 [facility] Comment on above: Performed By: #### L 100.0100, L503.6005, L500.4050, L501.2450, L501.3620 ####[facility] [address] [place], [address] Neutrophils/100 WBC (Bld) 64.0 % Normal 47-70 [facility] Comment on above: Performed By: #### L 100.0100, L503.6005, L500.4050, L501.2450, L501.3620 ####[facility] [address] [place], [address] Nucleated RBC (Bld) [#/Vol] 0 10*3/uL Normal 0-5 [facility] Comment on above: Performed By: #### L 100.0100, L503.6005, L500.4050, L501.2450, L501.3620 ####[facility] [address] [place], [address] Platelet mean volume (Bld) [Entitic vol] 9.1 fL Normal 6.2-12.0 [facility] Comment on above: Performed By: #### L 100.0100, L503.6005, L500.4050, L501.2450, L501.3620 ####[facility] [address] [place], [address] Platelets (Bld) [#/Vol] 365 10*3/uL Normal 150-450 [facility] Comment on above: Performed By: #### L 100.0100, L503.6005, L500.4050, L501.2450, L501.3620 ####[facility] [address] [place], [address] RBC (Bld) [#/Vol] 4.76 10*6/uL Normal 4.2-5.4 [facility] Comment on above: Performed By: #### L 100.0100, L503.6005, L500.4050, L501.2450, L501.3620 ####[facility] [address] [place], [address] RDW SD 42.4 fl Normal 35.1-43.9 [facility] Comment on above: Performed By: #### L 100.0100, L503.6005, L500.4050, L501.2450, L501.3620 ####[facility] [address] [place], [address] WBC (Bld) [#/Vol] 9.5 10*3/uL Normal 4.4-11.0 [facility] Comment on above: Performed By: #### L 100.0100, L503.6005, L500.4050, L501.2450, L501.3620 ####[facility] [address] [place], [address] CPK Total, Creatine Kinaseon 02-19-2025 CPK TOTAL 700 U/L High 24-195 [facility] Comment on above: Performed By: #### L 100.0100, L503.6005, L500.4050, L501.2450, L501.3620 ####[facility] [address] [place], [address] CTA Abd w/Runoff W/WO Contra ston 02-19-2025 CTA Abd w/Runoff W/WO Contrast Normal [facility] Comprehensive Metabolic Prof ilon 02-19-2025 Potassium [Moles/Vol] 2.1 mmol/L Invalid Interpretation Code 3.3-5.1 [facility] Comment on above: Result Comment: Crit ical Result(s) Called MMARTIN at: 1934 by:SARBJIT??Results read back by same.Critical Result(s) Called at: by:??Results read back bysame. AMENDED REPORT 02/19/251953 K previously reported as: 2.1 *L mmol/LCritical Result(s) Called MMARTIN at: 1934 by:SARBJIT??Results read back by same. Performed By: #### L 100.0100, L503.6005, L500.4050, L501.2450, L501.3620 ####[facility] [address] [place], [address] Emergency Department Summary on 02-19-2025 Emergency Department Summary Normal [facility] Ferritinon 02-19-2025 Ferritin [Mass/Vol] 47 ng/mL Normal 22-378 [facility] Comment on above: Performed By: #### L 501.9520, L503.6550, L506.0200, L503.6030, L3000.0375 ####[facility] [address] [place], [address] H AND P Exam - Hospitaliston 02-19-2025 H&P Exam - Hospitalist Normal [facility] Lactic Acidon 02-19-2025 Lactate [Moles/Vol] 1.4 mmol/L Normal 0.0-2.0 [facility] Comment on above: Performed By: #### L 503.6005 ####[facility] [address] [place], [address] Lactate [Moles/Vol] 2.3 mmol/L Invalid Interpretation Code 0.0-2.0 [facility] Comment on above: Order Comment: Y Result Comment: Crit ical Result(s) Called MMARTIN at: 1934 by:SARBJIT??Results read back by same. Performed By: #### L 100.0100, L503.6005, L500.4050, L501.2450, L501.3620 ####[facility] [address] [place], [address] Lipaseon 02-19-2025 Lipase [Catalytic activity/Vol] 12 U/L Low 13-75 [facility] Comment on above: Result Comment: Plesameer damon note:LIPASE revised reference range effective 22.New Lipase methodology. Expected to produce lower valuesthan the previous assay method.NEW Reference Range: 13 - 75 U/L Performed By: #### L 100.0100, L503.6005, L500.4050, L501.2450, L501.3620 ####[facility] [address] [place], [address] Magnesiumon 02-19-2025 Magnesium [Mass/Vol] 0.8 mg/dL Invalid Interpretation Code 1.5-2.2 [facility] Comment on above: Result Comment: Crit ical Result(s) Called ALAMMERS at: 2117 by:SARBJIT??Results read back by same. Performed By: #### L 501.5200 ####[facility] [address] [place], [address] Partial Thromboplast Timeon 02-19-2025 aPTT Coag (Bld) [Time] 30.6 s Normal 24.1-36.2 [facility] Comment on above: Performed By: #### L 300.3900, L300.4310 ####[facility] [address] [place], [address] ,Serum,hCG Quali.on 02-19-2025 HCG, SERUM QUAL Negative Normal [facility] Comment on above: Performed By: #### L 700.6800 ####[facility] [address] [place], [address] Prothrombin Time w/INRon INR Coag (PPP) [Relative time] 1.4 {INR} Normal [facility] Comment on above: Performed By: #### L 300.3900, L300.4310 ####[facility] [address] [place], [address] PT Coag (PPP) [Time] 17.9 s High 11.7-14.9 [facility] Comment on above: Performed By: #### L 300.3900, L300.4310 ####[facility] [address] [place], [address] Thyroid Stim Hormone (TSH)on 02-19-2025 TSH 2.560 uIU/mL Normal 0.300-4.200 [facility] Comment on above: Performed By: #### L 501.9520, L503.6550, L506.0200, L503.6030, L3000.0375 ####[facility] [address] [place], [address] Urinalysis, Completeon 02-19 EPI,SQUAMOUS 0-5 SEEN Normal 5-10 [facility] Comment on above: Order Comment: CLEAN CATCH Performed By: #### L 400.0001 ####[facility] [address] [place], [address] WBC 0-5 SEEN Normal 0-5 [facility] Comment on above: Order Comment: CLEAN CATCH Performed By: #### L 400.0001 ####[facility] [address] [place], [address] BACTERIA 0 SEEN Normal None Seen [facility] Comment on above: Order Comment: CLEAN CATCH Performed By: #### L 400.0001 ####[facility] [address] [place], [address] Mucus Ql (Urine sed) 0 SEEN Normal [facility] Comment on above: Order Comment: CLEAN CATCH Performed By: #### L 400.0001 ####[facility] [address] [place], [address] RBC 0 SEEN Normal 0-5 [facility] Comment on above: Order Comment: CLEAN CATCH Performed By: #### L 400.0001 ####[facility] [address] [place], [address] BACTERIA Normal None Seen [facility] Comment on above: Order Comment: COLLE CTOR TO SPECIFY Result Comment: DUPL ICATE ORDER Performed By: #### L 400.0001 ####[facility] [address] [place], [address] BILIRUBIN URINE Normal Negative [facility] Comment on above: Order Comment: COLLE CTOR TO SPECIFY Result Comment: DUPL ICATE ORDER Performed By: #### L 400.0001 ####[facility] [address] [place], [address] Clarity (U) Normal Clear [facility] Comment on above: Order Comment: COLLE CTOR TO SPECIFY Result Comment: DUPL ICATE ORDER Performed By: #### L 400.0001 ####[facility] [address] [place], [address] Color (U) Normal Yellow [facility] Comment on above: Order Comment: COLLE CTOR TO SPECIFY Result Comment: DUPL ICATE ORDER Performed By: #### L 400.0001 ####[facility] [address] [place], [address] EPI,SQUAMOUS Normal 5-10 [facility] Comment on above: Order Comment: COLLE CTOR TO SPECIFY Result Comment: DUPL ICATE ORDER Performed By: #### L 400.0001 ####[facility] [address] [place], [address] GLUCOSE, UR Normal Normal [facility] Comment on above: Order Comment: COLLE CTOR TO SPECIFY Result Comment: DUPL ICATE ORDER Performed By: #### L 400.0001 ####[facility] [address] [place], [address] KETONE UR Normal Negative [facility] Comment on above: Order Comment: COLLE CTOR TO SPECIFY Result Comment: DUPL ICATE ORDER Performed By: #### L 400.0001 ####[facility] [address] [place], [address] LEUK ESTERASE Normal Negative [facility] Comment on above: Order Comment: COLLE CTOR TO SPECIFY Result Comment: DUPL ICATE ORDER Performed By: #### L 400.0001 ####[facility] [address] [place], [address] Mucus Ql (Urine sed) Normal [facility] Comment on above: Order Comment: COLLE CTOR TO SPECIFY Result Comment: DUPL ICATE ORDER Performed By: #### L 400.0001 ####[facility] [address] [place], [address] Nitrite Ql (U) Normal Negative [facility] Comment on above: Order Comment: COLLE CTOR TO SPECIFY Result Comment: DUPL ICATE ORDER Performed By: #### L 400.0001 ####[facility] [address] [place], [address] OCCULT BLOOD-UR Normal Negative [facility] Comment on above: Order Comment: COLLE CTOR TO SPECIFY Result Comment: DUPL ICATE ORDER Performed By: #### L 400.0001 ####[facility] [address] [place], [address] pH UR Normal 5.0 - 8.0 [facility] Comment on above: Order Comment: COLLE CTOR TO SPECIFY Result Comment: DUPL ICATE ORDER Performed By: #### L 400.0001 ####[facility] [address] [place], [address] PROT DIPSTX Normal Negative [facility] Comment on above: Order Comment: COLLE CTOR TO SPECIFY Result Comment: DUPL ICATE ORDER Performed By: #### L 400.0001 ####[facility] [address] [place], [address] RBC Normal 0-5 [facility] Comment on above: Order Comment: COLLE CTOR TO SPECIFY Result Comment: DUPL ICATE ORDER Performed By: #### L 400.0001 ####[facility] [address] [place], [address] SP.GR. DIPSTX Normal 1.002-1.030 [facility] Comment on above: Order Comment: COLLE CTOR TO SPECIFY Result Comment: DUPL ICATE ORDER Performed By: #### L 400.0001 ####[facility] [address] [place], [address] UR Preservative Normal [facility] Comment on above: Order Comment: COLLE CTOR TO SPECIFY Result Comment: DUPL ICATE ORDER Performed By: #### L 400.0001 ####[facility] [address] [place], [address] UROBILI Normal Normal [facility] Comment on above: Order Comment: COLLE CTOR TO SPECIFY Result Comment: DUPL ICATE ORDER Performed By: #### L 400.0001 ####[facility] [address] [place], [address] WBC Normal 0-5 [facility] Comment on above: Order Comment: COLLE CTOR TO SPECIFY Result Comment: DUPL ICATE ORDER Performed By: #### L 400.0001 ####[facility] [address] [place] [id number] Urine Drug Screen (VISTA)on 02-19-2025 AMPHETAMINES Negative Normal <1000 ng/mL [facility] Comment on above: Performed By: #### L 505.5000 ####[facility] [address] [facility] [address] BARBITIURATES Negative Normal < 200 ng/mL [facility] Comment on above: Performed By: #### L 505.5000 ####[facility] [address] [place] [id number] BENZODIAZIPINE Positive Normal < 200 ng/mL [facility] Comment on above: Result Comment: If c onfirmation testing is needed, a separate order will berequired to send out testing to the reference laboratory. Performed By: #### L 505.5000 ####[facility] [address] [place] [id number] BUP Ur Drug Scr Negative Normal < 200 ng/mL [facility] Comment on above: Performed By: #### L 505.5000 ####[facility] [address] [place] [address] COCAINE Negative Normal < 300 ng/mL [facility] Comment on above: Performed By: #### L 505.5000 ####[facility] [address] [place] [id number] Fentanyl Negative Normal <5 ng/mL [facility] Comment on above: Result Comment: CONF [...] testmnemonic: [facility]CA Performed By: #### L 505.5000 ####[facility] [address] [place], [address] METHADONE Negative Normal < 300 ng/mL [facility] Comment on above: Performed By: #### L 505.5000 ####[facility] [address] [facility] [address] OPIATES Negative Normal < 300 ng/mL [facility] Comment on above: Performed By: #### L 505.5000 ####[facility] [address] [place], [address] OXYCODONE Negative Normal < 100 ng/mL [facility] Comment on above: Performed By: #### L 505.5000 ####[facility] [address] [place], [address] PCP Negative Normal < 25 ng/mL [facility] Comment on above: Performed By: #### L 505.5000 ####[facility] [address] [place], [address] THC Negative Normal < 50 ng/mL [facility] Comment on above: Performed By: #### L 505.5000 ####[facility] [address] [place], [address] Wound Ctr History AND Physic dorothy 01-17-2025 Wound Ctr History & Physical Normal [facility] L3410.9994on 01-15-2025 [facility] Misc. 2 COMMENT Normal . [facility] Comment on above: Order Comment: 72824 0SELENIUM - ROYAL BLUE - PLASMA Result Comment: Test Ordered: 368075 Selenium, Serum/PlasmaTest(s) 604004-Ecfnfbij, Serum/Plasmawas developed and its performance characteristicsdetermined by [facility]. It has not been cleared or approvedby the Food and Drug Administration.Selenium, Serum/Plasma 100 ug/L Reference Range: 93-198Performed at: [facility] [address] [place], [place] [id number] Director: Kim Mayorga MD, Phone: [phone] at: [facility] [place], [place] [id number] Director: Christian Alfaro PhD, Phone: [phone] Performed By: #### L 100.0500, L500.4050, L501.2300, L501.5000, L501.5200, L501.6710, L503.0106, L506.1001, L3300.0100, L3300.8200, L3300.9900, L3410.9992, L7400.3000, L3410.9996, L3410.9994 ####[facility] [address] [place], [address] L3410.9996on 01-13-[facility] [facility] Misc. 3 COMMENT Normal . [facility] Comment on above: Order Comment: 64202 9VITAMIN A E - SERUM Result Comment: Test Ordered: 257792 Vitamin A and ETest(s) 045526-Yqkulrj E(Alpha Tocopherol); 410890-Xbivgzi E(Gamma Tocopherol)was developed and its performance characteristicsdetermined [...] gamma-tocopheroldetermined from National Health and Nutrition ExaminationSurvey, 8884-0700. Individuals with alpha-tocopherol levelsless than 5.0 mg/L are considered vitamin E deficient.Performed at: [address] [id number] Director: Kim Mayorga MD, Phone: [phone] at: [address] [id number] Director: Christian Alfaro PhD, Phone: [phone] Performed By: #### L 100.0500, L500.4050, L501.2300, L501.5000, L501.5200, L501.6710, L503.0106, L506.1001, L3300.0100, L3300.8200, L3300.9900, L3410.9992, L7400.3000, L3410.9996, L3410.9994 ####[facility] [address] [place], [address] [facility] METHYLMAL ACID 239 nmol/L Normal 0-378 [facility] Comment on above: Order Comment: Test( s) 461419-Vkujsujkjfslb Acid, Serumwas developed and its performance characteristicsdetermined by [facility]. It has not been cleared or approvedby the Food and Drug Administration. Result Comment: Perf ormed at: [address] [id number] Director: Kim Mayorga MD, Phone: [phone] Performed By: #### L 100.0500, L500.4050, L501.2300, L501.5000, L501.5200, L501.6710, L503.0106, L506.1001, L3300.0100, L3300.8200, L3300.9900, L3410.9992, L7400.3000, L3410.9996, L3410.9994 ####[facility] [address] [place], [address] Copper, Serum or Plasmaon COPPER, SERUM 131 ug/dL Normal 80-158 [facility] Comment on above: Order Comment: Test( s) 862555-Ujqhgmn B6was developed and its performance characteristicsdetermined by [employer]. It has not been cleared or approvedby the Food and Drug Administration. Result Comment: Dete ction Limit = 5 Performed By: #### L 100.0500, L500.4050, L501.2300, L501.5000, L501.5200, L501.6710, L503.0106, L506.1001, L3300.0100, L3300.8200, L3300.9900, L3410.9992, L7400.3000, L3410.9996, L3410.9994 ####[facility] [address] [place], [place], [address] L3300.8200on 01-12-2025 VITAMIN B6 1.2 ug/L Low 3.4-65.2 [facility] Comment on above: Order Comment: Test( s) 746343-Dcfonxy B6was developed and its performance characteristicsdetermined by [employer]. It has not been cleared or approvedby the Food and Drug Administration. Result Comment: Defi ciency: <3.4 Marginal: 3.4 - 5.1 Adequate: >5.1 Performed By: #### L 100.0500, L500.4050, L501.2300, L501.5000, L501.5200, L501.6710, L503.0106, L506.1001, L3300.0100, L3300.8200, L3300.9900, L3410.9992, L7400.3000, L3410.9996, L3410.9994 ####[facility] [address] [place], [place], [address] L3410.9992on 01-12-2025 [facility] Misc. COMMENT Normal . [facility] Comment on above: Order Comment: 27596 [address]WB MANGANESE - ROYAL BLUE - WB Result Comment: Test Ordered: 202865 Manganese, BloodTest(s) 656736-Dobhcurbv, Bloodwas developed and its performance characteristicsdetermined by [facility]. It has not been cleared or approvedby the Food and Drug Administration.Manganese, Blood 8.8 ug/L [facility] Reference Range: 8.0-18.7Performed at: [facility], [place], [place] [id number] Director: Wendy Fowler MD, Phone: [phone] at: [address] [id number] Director: Christian Alfaro PhD, Phone: [phone] Performed By: #### L 100.0500, L500.4050, L501.2300, L501.5000, L501.5200, L501.6710, L503.0106, L506.1001, L3300.0100, L3300.8200, L3300.9900, L3410.9992, L7400.3000, L3410.9996, L3410.9994 ####[facility] [address] [place], [address] Zinc, Plasma or Serumon 12-25 ZINC,PLASMA/SER 71 ug/dL Normal 44-115 [facility] Comment on above: Order Comment: Test( s) 517060-Hvmijxh B6was developed and its performance characteristicsdetermined by [facility]. It has not been cleared or approvedby the Food and Drug Administration. Result Comment: Dete ction Limit = 5Performed at: [address] [id number] Director: Kim Mayorga MD, Phone: [phone] Performed By: #### L 100.0500, L500.4050, L501.2300, L501.5000, L501.5200, L501.6710, L503.0106, L506.1001, L3300.0100, L3300.8200, L3300.9900, L3410.9992, L7400.3000, L3410.9996, L3410.9994 ####[facility] [address] [place], [address] Basic metabolic 2000 panelon 01-11-2025 Anion gap [Moles/Vol] 16 mmol/L High 8 - 15 mmol/L [facility] Calcium [Mass/Vol] 9.6 mg/dL 8.5 - 10. 2 mg/dL [facility] Chloride [Moles/Vol] 104 mmol/L 98 - 107 mmol/L [facility] CO2 [Moles/Vol] 21 mmol/L Low 22 - 30 mmol/L [facility] Creatinine [Mass/Vol] 0.91 mg/dL 0.58 - 0.96 mg/dL [facility] GFR/1.73 sq M.predicted among non-blacks MDRD (S/P/Bld) [Vol rate/Area] 81 mL/min/{1.73_m2} - PINF [facility] Comment on above: Estimated Glomerular Filtration [...] [Mass/Vol] 99 mg/dL 74 - 99 mg/dL [facility] Comment on above: The [place] [employer] (ADA) provides guidance for [...] Standards of Medical Care in Diabetes 2016, [place] [employer]. Diabetes Care. 2016.39(Suppl 1). Interpretation and review of laboratory results Abnormal [facility] Potassium [Moles/Vol] 3.4 mmol/L Low 3.7 - 5.1 mmol/L [facility] Sodium [Moles/Vol] 141 mmol/L 136 - 144 mmol/L [facility] Urea nitrogen [Mass/Vol] 17 mg/dL 7 - 21 mg/dL [facility] CBC W Auto Differential pane l (Bld)on 01-10-2025 Basophils (Bld) [#/Vol] 0.04 10*3/uL [facility] Basophils/100 WBC (Bld) 0.5 % [facility] Differential cell count method Nom (Bld) Auto [facility] Eosinophils (Bld) [#/Vol] 0.16 10*3/uL [facility] Eosinophils/100 WBC (Bld) 2 % [facility] Erythrocyte distribution width (RBC) [Ratio] 16 % High 11.5 - 15.0 % [facility] Hematocrit (Bld) [Volume fraction] 37.7 % 36.0 - 46.0 % [facility] Hemoglobin (Bld) [Mass/Vol] 12.2 g/dL 11.5 - 15.5 g/dL [facility] Immature granulocytes (Bld) [#/Vol] 0.03 10*3/uL [facility] Immature granulocytes/100 WBC (Bld) 0.4 % [facility] Interpretation and review of laboratory results Abnormal [facility] Lymphocytes (Bld) [#/Vol] 2.59 10*3/uL [facility] Lymphocytes/100 WBC (Bld) 32.4 % [facility] MCH (RBC) [Entitic mass] 27 pg 26.0 - 34.0 pg [facility] MCHC (RBC) [Mass/Vol] 32.4 g/dL 30.5 - 36.0 g/dL [facility] MCV (RBC) [Entitic vol] 83.4 fL 80.0 - 100.0 fL [facility] Monocytes (Bld) [#/Vol] 0.63 10*3/uL [facility] Monocytes/100 WBC (Bld) 7.9 % [facility] Neutrophils (Bld) [#/Vol] 4.55 10*3/uL [facility] Neutrophils/100 WBC (Bld) 56.8 % [facility] Nucleated RBC (Bld) [#/Vol] [facility] Nucleated RBC/100 WBC (Bld) [Ratio] 0 % /100 WBC [facility] Platelet mean volume (Bld) [Entitic vol] 10.1 fL 9.0 - 12.7 fL [facility] Platelets (Bld) [#/Vol] 332 10*3/uL [facility] RBC (Bld) [#/Vol] 4.52 10*6/uL 3.90 - 5.2 0 m/uL [facility] WBC (Bld) [#/Vol] 8 10*3/uL [facility] PT panel Coag (PPP)on 2024 INR Coag (PPP) [Relative time] 1.1 {INR} 0.9 - 1.3 [facility] Comment on above: Vitamin K Antagonist (VKA) Therapeutic Range: INR 2 to 3 (Target INR of 2.5) Note: For patients treated with VKA drugs, such as warfarin, the [employer] 2012 Guideline recommends [...] Interpretation and review of laboratory results Normal [facility] PT Coag (PPP) [Time] 11.4 s [facility] CBC-Complete Blood Cnt No Di ffon 01-08-2025 Erythrocyte distribution width (RBC) [Ratio] 16.0 % High 11.6-14.6 [facility] Comment on above: Performed By: #### L 100.0500, L500.4050, L501.2300, L501.5000, L501.5200, L501.6710, L503.0106, L506.1001, L3300.0100, L3300.8200, L3300.9900, L3410.9992, L7400.3000, L3410.9996, L3410.9994 ####[facility] [address] [place], [place], [id number] Hematocrit (Bld) [Volume fraction] 35.9 % Low 37-47 [facility] Comment on above: Performed By: #### L 100.0500, L500.4050, L501.2300, L501.5000, L501.5200, L501.6710, L503.0106, L506.1001, L3300.0100, L3300.8200, L3300.9900, L3410.9992, L7400.3000, L3410.9996, L3410.9994 ####[facility] [address] [place], [place], [phone] Hemoglobin (Bld) [Mass/Vol] 11.9 g/dL Low 12.0-15.0 [facility] Comment on above: Performed By: #### L 100.0500, L500.4050, L501.2300, L501.5000, L501.5200, L501.6710, L503.0106, L506.1001, L3300.0100, L3300.8200, L3300.9900, L3410.9992, L7400.3000, L3410.9996, L3410.9994 ####[facility] [address] [place], [address] MCH (RBC) [Entitic mass] 27.1 pg Normal 27.0-32.0 [facility] Comment on above: Performed By: #### L 100.0500, L500.4050, L501.2300, L501.5000, L501.5200, L501.6710, L503.0106, L506.1001, L3300.0100, L3300.8200, L3300.9900, L3410.9992, L7400.3000, L3410.9996, L3410.9994 ####[facility] [address] [place], [place], [phone] MCHC (RBC) [Mass/Vol] 33.1 g/dL Normal 32-36 [facility] Comment on above: Performed By: #### L 100.0500, L500.4050, L501.2300, L501.5000, L501.5200, L501.6710, L503.0106, L506.1001, L3300.0100, L3300.8200, L3300.9900, L3410.9992, L7400.3000, L3410.9996, L3410.9994 ####[facility] [address] [place], [place], [phone] MCV (RBC) [Entitic vol] 81.8 fL Normal 81-99 [facility] Comment on above: Performed By: #### L 100.0500, L500.4050, L501.2300, L501.5000, L501.5200, L501.6710, L503.0106, L506.1001, L3300.0100, L3300.8200, L3300.9900, L3410.9992, L7400.3000, L3410.9996, L3410.9994 ####[facility] [address] [place], [address] Platelet mean volume (Bld) [Entitic vol] 9.7 fL Normal 6.2-12.0 [facility] Comment on above: Performed By: #### L 100.0500, L500.4050, L501.2300, L501.5000, L501.5200, L501.6710, L503.0106, L506.1001, L3300.0100, L3300.8200, L3300.9900, L3410.9992, L7400.3000, L3410.9996, L3410.9994 ####[facility] [address] [place], [address] Platelets (Bld) [#/Vol] 257 10*3/uL Normal 150-450 [facility] Comment on above: Performed By: #### L 100.0500, L500.4050, L501.2300, L501.5000, L501.5200, L501.6710, L503.0106, L506.1001, L3300.0100, L3300.8200, L3300.9900, L3410.9992, L7400.3000, L3410.9996, L3410.9994 ####[facility] [address] [place], [place], [phone] RBC (Bld) [#/Vol] 4.39 10*6/uL Normal 4.2-5.4 [facility] Comment on above: Performed By: #### L 100.0500, L500.4050, L501.2300, L501.5000, L501.5200, L501.6710, L503.0106, L506.1001, L3300.0100, L3300.8200, L3300.9900, L3410.9992, L7400.3000, L3410.9996, L3410.9994 ####[facility] [address] [place], [place], [phone] RDW SD 47.8 fl High 35.1-43.9 [facility] Comment on above: Performed By: #### L 100.0500, L500.4050, L501.2300, L501.5000, L501.5200, L501.6710, L503.0106, L506.1001, L3300.0100, L3300.8200, L3300.9900, L3410.9992, L7400.3000, L3410.9996, L3410.9994 ####[facility] [address] [place], [place], [phone] WBC (Bld) [#/Vol] 6.3 10*3/uL Normal 4.4-11.0 [facility] Comment on above: Performed By: #### L 100.0500, L500.4050, L501.2300, L501.5000, L501.5200, L501.6710, L503.0106, L506.1001, L3300.0100, L3300.8200, L3300.9900, L3410.9992, L7400.3000, L3410.9996, L3410.9994 ####[facility] [address] [place], [place], [phone] CRPon 01-08-2025 C-REACTIVE PROT 16.50 mg/L High 0.0-3.0 [facility] Comment on above: Performed By: #### L 100.0500, L500.4050, L501.2300, L501.5000, L501.5200, L501.6710, L503.0106, L506.1001, L3300.0100, L3300.8200, L3300.9900, L3410.9992, L7400.3000, L3410.9996, L3410.9994 ####[facility] [address] [place], [address] Comprehensive Metabolic Prof ilon 01-08-2025 Albumin [Mass/Vol] 3.5 g/dL Normal 3.5-5.0 [facility] Comment on above: Performed By: #### L 100.0500, L500.4050, L501.2300, L501.5000, L501.5200, L501.6710, L503.0106, L506.1001, L3300.0100, L3300.8200, L3300.9900, L3410.9992, L7400.3000, L3410.9996, L3410.9994 ####[facility] [address] [place], [place], [phone] Albumin/Globulin [Mass ratio] 0.9 {ratio} Normal 0.9-2.4 [facility] Comment on above: Performed By: #### L 100.0500, L500.4050, L501.2300, L501.5000, L501.5200, L501.6710, L503.0106, L506.1001, L3300.0100, L3300.8200, L3300.9900, L3410.9992, L7400.3000, L3410.9996, L3410.9994 ####[facility] [address] [place], [address] ALK PHOS 141 U/L High 35-104 [facility] Comment on above: Performed By: #### L 100.0500, L500.4050, L501.2300, L501.5000, L501.5200, L501.6710, L503.0106, L506.1001, L3300.0100, L3300.8200, L3300.9900, L3410.9992, L7400.3000, L3410.9996, L3410.9994 ####[facility] [address] [place], [address] ALT [Catalytic activity/Vol] 16 U/L Normal <=34 [facility] Comment on above: Performed By: #### L 100.0500, L500.4050, L501.2300, L501.5000, L501.5200, L501.6710, L503.0106, L506.1001, L3300.0100, L3300.8200, L3300.9900, L3410.9992, L7400.3000, L3410.9996, L3410.9994 ####[facility] [address] [place], [address] AST [Catalytic activity/Vol] 18 U/L Normal <=31 [facility] Comment on above: Performed By: #### L 100.0500, L500.4050, L501.2300, L501.5000, L501.5200, L501.6710, L503.0106, L506.1001, L3300.0100, L3300.8200, L3300.9900, L3410.9992, L7400.3000, L3410.9996, L3410.9994 ####[facility] [address] [place], [place], [phone] Bilirubin [Mass/Vol] 0.44 mg/dL Normal 0.00-1.30 [facility] Comment on above: Performed By: #### L 100.0500, L500.4050, L501.2300, L501.5000, L501.5200, L501.6710, L503.0106, L506.1001, L3300.0100, L3300.8200, L3300.9900, L3410.9992, L7400.3000, L3410.9996, L3410.9994 ####[facility] [address] [facility] [place], [place], [phone] BUN/CRE 17.3 RATIO Normal 10-20 [facility] Comment on above: Performed By: #### L 100.0500, L500.4050, L501.2300, L501.5000, L501.5200, L501.6710, L503.0106, L506.1001, L3300.0100, L3300.8200, L3300.9900, L3410.9992, L7400.3000, L3410.9996, L3410.9994 ####[facility] [address] [facility]. [place], [place], [phone] Calcium [Mass/Vol] 9.0 mg/dL Normal 7.6-11.0 [facility] Comment on above: Performed By: #### L 100.0500, L500.4050, L501.2300, L501.5000, L501.5200, L501.6710, L503.0106, L506.1001, L3300.0100, L3300.8200, L3300.9900, L3410.9992, L7400.3000, L3410.9996, L3410.9994 ####[facility] [address] [place], [place], [phone] Chloride [Moles/Vol] 101 mmol/L Normal 98-108 [facility] Comment on above: Performed By: #### L 100.0500, L500.4050, L501.2300, L501.5000, L501.5200, L501.6710, L503.0106, L506.1001, L3300.0100, L3300.8200, L3300.9900, L3410.9992, L7400.3000, L3410.9996, L3410.9994 ####[facility] [address] [place], [place], [phone] CO2 [Moles/Vol] 19.2 mmol/L Low 21.0-32.0 [facility] Comment on above: Performed By: #### L 100.0500, L500.4050, L501.2300, L501.5000, L501.5200, L501.6710, L503.0106, L506.1001, L3300.0100, L3300.8200, L3300.9900, L3410.9992, L7400.3000, L3410.9996, L3410.9994 ####[facility] [address] [place], [address] Creatinine [Mass/Vol] 0.99 mg/dL Normal 0.70-1.20 [facility] Comment on above: Performed By: #### L 100.0500, L500.4050, L501.2300, L501.5000, L501.5200, L501.6710, L503.0106, L506.1001, L3300.0100, L3300.8200, L3300.9900, L3410.9992, L7400.3000, L3410.9996, L3410.9994 ####[facility] [address] [place], [place], [phone] GAP 17 High 5-15 [facility] Comment on above: Performed By: #### L 100.0500, L500.4050, L501.2300, L501.5000, L501.5200, L501.6710, L503.0106, L506.1001, L3300.0100, L3300.8200, L3300.9900, L3410.9992, L7400.3000, L3410.9996, L3410.9994 ####[facility] [address] [place], [address] GFR/1.73 sq M.predicted among non-blacks MDRD (S/P/Bld) [Vol rate/Area] 73 mL/min/{1.73_m2} Normal >60 [facility] Comment on above: Result Comment: mL/m in/1.73m2 CKD-EPI Creatinine Equation (2020) Performed By: #### L 100.0500, L500.4050, L501.2300, L501.5000, L501.5200, L501.6710, L503.0106, L506.1001, L3300.0100, L3300.8200, L3300.9900, L3410.9992, L7400.3000, L3410.9996, L3410.9994 ####[facility] [address] [place], [address] Globulin (S) [Mass/Vol] 4.0 g/dL Normal 2.2-4.2 [facility] Comment on above: Performed By: #### L 100.0500, L500.4050, L501.2300, L501.5000, L501.5200, L501.6710, L503.0106, L506.1001, L3300.0100, L3300.8200, L3300.9900, L3410.9992, L7400.3000, L3410.9996, L3410.9994 ####[facility] [address] [place], [place], [phone] Glucose [Mass/Vol] 148 mg/dL High 70-99 [facility] Comment on above: Performed By: #### L 100.0500, L500.4050, L501.2300, L501.5000, L501.5200, L501.6710, L503.0106, L506.1001, L3300.0100, L3300.8200, L3300.9900, L3410.9992, L7400.3000, L3410.9996, L3410.9994 ####[facility] [address] [place], [address] Potassium [Moles/Vol] 2.6 mmol/L Invalid Interpretation Code 3.3-5.1 [facility] Comment on above: Result Comment: Crit ical Result(s) Called at: 1539 by:??CLAUDIA ALEXANDRE Results read back by same. Performed By: #### L 100.0500, L500.4050, L501.2300, L501.5000, L501.5200, L501.6710, L503.0106, L506.1001, L3300.0100, L3300.8200, L3300.9900, L3410.9992, L7400.3000, L3410.9996, L3410.9994 ####[facility] [address] [place], [place], [phone] Sodium [Moles/Vol] 137 mmol/L Normal 133-145 [facility] Comment on above: Performed By: #### L 100.0500, L500.4050, L501.2300, L501.5000, L501.5200, L501.6710, L503.0106, L506.1001, L3300.0100, L3300.8200, L3300.9900, L3410.9992, L7400.3000, L3410.9996, L3410.9994 ####[facility] [address] [place], [place], [phone] T PROT 7.4 g/dL Normal 5.9-8.4 [facility] Comment on above: Performed By: #### L 100.0500, L500.4050, L501.2300, L501.5000, L501.5200, L501.6710, L503.0106, L506.1001, L3300.0100, L3300.8200, L3300.9900, L3410.9992, L7400.3000, L3410.9996, L3410.9994 ####[facility] [address] [place], [place], [phone] Urea nitrogen [Mass/Vol] 17 mg/dL Normal 4-19 [facility] Comment on above: Performed By: #### L 100.0500, L500.4050, L501.2300, L501.5000, L501.5200, L501.6710, L503.0106, L506.1001, L3300.0100, L3300.8200, L3300.9900, L3410.9992, L7400.3000, L3410.9996, L3410.9994 ####[facility] [address] [place], [place], [phone] Magnesiumon 01-08-2025 Magnesium [Mass/Vol] 2.1 mg/dL Normal 1.5-2.2 [facility] Comment on above: Performed By: #### L 100.0500, L500.4050, L501.2300, L501.5000, L501.5200, L501.6710, L503.0106, L506.1001, L3300.0100, L3300.8200, L3300.9900, L3410.9992, L7400.3000, L3410.9996, L3410.9994 ####[facility] [address] [place], [place], [phone] Phosphoruson 01-08-2025 Phosphate [Mass/Vol] 2.9 mg/dL Normal 2.7-4.5 [facility] Comment on above: Performed By: #### L 100.0500, L500.4050, L501.2300, L501.5000, L501.5200, L501.6710, L503.0106, L506.1001, L3300.0100, L3300.8200, L3300.9900, L3410.9992, L7400.3000, L3410.9996, L3410.9994 ####[facility] [address] [facility] [place], [place], [address] Triglycerideson 01-08-2025 Triglyceride [Mass/Vol] 90 mg/dL Normal [facility] Comment on above: Result Comment: The drugs N-Acetylcysteine and Metamizole may falselydepress this assay.Normal range: <150 mg/dLBorderline High: 150-199 mg/dLHigh: 200-499 mg/dLVery High: >500 mg/dL Performed By: #### L 100.0500, L500.4050, L501.2300, L501.5000, L501.5200, L501.6710, L503.0106, L506.1001, L3300.0100, L3300.8200, L3300.9900, L3410.9992, L7400.3000, L3410.9996, L3410.9994 ####[facility] [address] [place], [address] Vitamin B12on 01-08-2025 Cobalamin (Vitamin B12) [Mass/Vol] 381 pg/mL Normal 180-914 [facility] Comment on above: Performed By: #### L 100.0500, L500.4050, L501.2300, L501.5000, L501.5200, L501.6710, L503.0106, L506.1001, L3300.0100, L3300.8200, L3300.9900, L3410.9992, L7400.3000, L3410.9996, L3410.9994 ####[facility] [address] [place], [address] Vitamin D,25 Hydroxyon 01-08 Vitamin D 25-OH 8.9 ng/mL Low 30-100 [facility] Comment on above: Result Comment: Yamileth min D StatusDeficiency: <20 ng/mL (50nmol/L)Insufficiency: 20-30 ng/mL (50-75 nmol/L)Sufficiency: 30-100 ng/mL (75-250 nmol/L)Toxicity: >100 ng/mL (>250 nmol/L) Performed By: #### L 100.0500, L500.4050, L501.2300, L501.5000, L501.5200, L501.6710, L503.0106, L506.1001, L3300.0100, L3300.8200, L3300.9900, L3410.9992, L7400.3000, L3410.9996, L3410.9994 ####[facility] [address] [place], [address] CNOVon 12-31-2024 CNOV Normal [facility] CNPNon 12-25-2024 CNPN Normal [facility] CNPTOUTREACHon 12-25-2024 CNPTOUTREACH Normal [facility] CBC W/Diff, Automatedon 06-3 0-2024 Absolute Lymph 2.63 X10 3/uL Normal 0.83-4.51 [facility] Comment on above: Performed By: #### L 100.0100, L500.4050, L501.2300, L501.5200 ####[facility] [address] [place], [address] Absolute Neut 7.8 X10 3/uL High 2.0-7.7 [facility] Comment on above: Performed By: #### L 100.0100, L500.4050, L501.2300, L501.5200 ####[facility] [address] [place], [address] Basophils/100 WBC (Bld) 0.4 % Normal 0-1 [facility] Comment on above: Performed By: #### L 100.0100, L500.4050, L501.2300, L501.5200 ####[facility] [address] [place], [address] Eosinophils/100 WBC (Bld) 2.6 % Normal 0-5 [facility] Comment on above: Performed By: #### L 100.0100, L500.4050, L501.2300, L501.5200 ####[facility] [address] [place], [address] Erythrocyte distribution width (RBC) [Ratio] 19.0 % High 11.6-14.6 [facility] Comment on above: Performed By: #### L 100.0100, L500.4050, L501.2300, L501.5200 ####[facility] [address] [place], [address] Hematocrit (Bld) [Volume fraction] 32.9 % Low 37-47 [facility] Comment on above: Performed By: #### L 100.0100, L500.4050, L501.2300, L501.5200 ####[facility] [address] [place], [address] Hemoglobin (Bld) [Mass/Vol] 10.4 g/dL Low 12.0-15.0 [facility] Comment on above: Performed By: #### L 100.0100, L500.4050, L501.2300, L501.5200 ####[facility] [address] [place], [address] IG% 0.600 Normal 0.0-0.9 [facility] Comment on above: Result Comment: IG% - Immature Granulocytes (promyelocytes, myelocytes andmetamyelocytes) > 1% indicates that a LEFT SHIFT is Present. Performed By: #### L 100.0100, L500.4050, L501.2300, L501.5200 ####[facility] [address] [place], [address] Lymphocytes/100 WBC (Bld) 22.8 % Normal 19-41 [facility] Comment on above: Performed By: #### L 100.0100, L500.4050, L501.2300, L501.5200 ####[facility] [address] [place], [address] MCH (RBC) [Entitic mass] 27.2 pg Normal 27.0-32.0 [facility] Comment on above: Performed By: #### L 100.0100, L500.4050, L501.2300, L501.5200 ####[facility] [address] [place], [address] MCHC (RBC) [Mass/Vol] 31.6 g/dL Low 32-36 [facility] Comment on above: Performed By: #### L 100.0100, L500.4050, L501.2300, L501.5200 ####[facility] [address] [place], [address] MCV (RBC) [Entitic vol] 85.9 fL Normal 81-99 [facility] Comment on above: Performed By: #### L 100.0100, L500.4050, L501.2300, L501.5200 ####[facility] [address] [place], [address] Monocytes/100 WBC (Bld) 5.7 % Normal 0-10 [facility] Comment on above: Performed By: #### L 100.0100, L500.4050, L501.2300, L501.5200 ####[facility] [address] [place], [address] Neutrophils/100 WBC (Bld) 67.9 % Normal 47-70 [facility] Comment on above: Performed By: #### L 100.0100, L500.4050, L501.2300, L501.5200 ####[facility] [address] [place], [address] Nucleated RBC (Bld) [#/Vol] 0 10*3/uL Normal 0-5 [facility] Comment on above: Performed By: #### L 100.0100, L500.4050, L501.2300, L501.5200 ####[facility] [address] [place], [address] Platelet mean volume (Bld) [Entitic vol] 9.2 fL Normal 6.2-12.0 [facility] Comment on above: Performed By: #### L 100.0100, L500.4050, L501.2300, L501.5200 ####[facility] [address] [place], [address] Platelets (Bld) [#/Vol] 500 10*3/uL High 150-450 [facility] Comment on above: Performed By: #### L 100.0100, L500.4050, L501.2300, L501.5200 ####[facility] [address] [place], [address] RBC (Bld) [#/Vol] 3.83 10*6/uL Low 4.2-5.4 [facility] Comment on above: Performed By: #### L 100.0100, L500.4050, L501.2300, L501.5200 ####[facility] [address] [place], [address] RDW SD 59.3 fl High 35.1-43.9 [facility] Comment on above: Performed By: #### L 100.0100, L500.4050, L501.2300, L501.5200 ####[facility] [address] [place], [address] WBC (Bld) [#/Vol] 11.5 10*3/uL High 4.4-11.0 [facility] Comment on above: Performed By: #### L 100.0100, L500.4050, L501.2300, L501.5200 ####[facility] [address] [place], [address] Comprehensive Metabolic Prof [facility] 12-24-2024 Albumin [Mass/Vol] 3.6 g/dL Normal 3.5-5.0 [facility] Comment on above: Performed By: #### L 100.0100, L500.4050, L501.2300, L501.5200 ####[facility] [address] [place], [address] Albumin/Globulin [Mass ratio] 0.9 {ratio} Normal 0.9-2.4 [facility] Comment on above: Performed By: #### L 100.0100, L500.4050, L501.2300, L501.5200 ####[facility] [address] [place], [address] ALK PHOS 192 U/L High 35-104 [facility] Comment on above: Performed By: #### L 100.0100, L500.4050, L501.2300, L501.5200 ####[facility] [address] [place], [address] ALT [Catalytic activity/Vol] 77 U/L High <=34 [facility] Comment on above: Performed By: #### L 100.0100, L500.4050, L501.2300, L501.5200 ####[facility] [address] [place], [address] AST [Catalytic activity/Vol] 42 U/L High <=31 [facility] Comment on above: Performed By: #### L 100.0100, L500.4050, L501.2300, L501.5200 ####[facility] [address] [place], [address] Bilirubin [Mass/Vol] 0.28 mg/dL Normal 0.00-1.30 [facility] Comment on above: Performed By: #### L 100.0100, L500.4050, L501.2300, L501.5200 ####[facility] [address] [place], [address] BUN/CRE 25.0 RATIO High 10-20 [facility] Comment on above: Performed By: #### L 100.0100, L500.4050, L501.2300, L501.5200 ####[facility] [address] [place], [address] Calcium [Mass/Vol] 9.1 mg/dL Normal 7.6-11.0 [facility] Comment on above: Performed By: #### L 100.0100, L500.4050, L501.2300, L501.5200 ####[facility] [address] [place], [address] Chloride [Moles/Vol] 105 mmol/L Normal 98-108 [facility] Comment on above: Performed By: #### L 100.0100, L500.4050, L501.2300, L501.5200 ####[facility] [address] [place], [address] CO2 [Moles/Vol] 20.1 mmol/L Low 21.0-32.0 [facility] Comment on above: Performed By: #### L 100.0100, L500.4050, L501.2300, L501.5200 ####[facility] [address] [place], [address] Creatinine [Mass/Vol] 0.94 mg/dL Normal 0.70-1.20 [facility] Comment on above: Performed By: #### L 100.0100, L500.4050, L501.2300, L501.5200 ####[facility] [address] [place], [address] GAP 14 Normal 5-15 [facility] Comment on above: Performed By: #### L 100.0100, L500.4050, L501.2300, L501.5200 ####[facility] [address] [place], [address] GFR/1.73 sq M.predicted among non-blacks MDRD (S/P/Bld) [Vol rate/Area] 79 mL/min/{1.73_m2} Normal >60 [facility] Comment on above: Result Comment: mL/m in/1.73m2 CKD-EPI Creatinine Equation (2020) Performed By: #### L 100.0100, L500.4050, L501.2300, L501.5200 ####[facility] [address] [place], [address] Globulin (S) [Mass/Vol] 3.8 g/dL Normal 2.2-4.2 [facility] Comment on above: Performed By: #### L 100.0100, L500.4050, L501.2300, L501.5200 ####[facility] [address] [place], [address] Glucose [Mass/Vol] 104 mg/dL High 70-99 [facility] Comment on above: Performed By: #### L 100.0100, L500.4050, L501.2300, L501.5200 ####[facility] [address] [place], [address] Potassium [Moles/Vol] 3.7 mmol/L Normal 3.3-5.1 [facility] Comment on above: Performed By: #### L 100.0100, L500.4050, L501.2300, L501.5200 ####[facility] [address] [place], [address] Sodium [Moles/Vol] 139 mmol/L Normal 133-145 [facility] Comment on above: Performed By: #### L 100.0100, L500.4050, L501.2300, L501.5200 ####[facility] [address] [place], [address] T PROT 7.3 g/dL Normal 5.9-8.4 [facility] Comment on above: Performed By: #### L 100.0100, L500.4050, L501.2300, L501.5200 ####[facility] [address] [place], [address] Urea nitrogen [Mass/Vol] 23 mg/dL High 4-19 [facility] Comment on above: Performed By: #### L 100.0100, L500.4050, L501.2300, L501.5200 ####[facility] [address] [place], [address] Magnesiumon 12-24-2024 Magnesium [Mass/Vol] 2.1 mg/dL Normal 1.5-2.2 [facility] Comment on above: Performed By: #### L 100.0100, L500.4050, L501.2300, L501.5200 ####[facility] [address] [place], [address] Phosphoruson 12-24-2024 Phosphate [Mass/Vol] 3.7 mg/dL Normal 2.7-4.5 [facility] Comment on above: Performed By: #### L 100.0100, L500.4050, L501.2300, L501.5200 ####[facility] [address] [place], [address] CASE MANAGEMon 12-21-2024 CASE MANAGEM Normal [facility] CBC W Auto Differential pane l (Bld)on 12-21-2024 Basophils (Bld) [#/Vol] 0.03 10*3/uL Normal <0.11 [facility] Comment on above: Order Comment: Speci men Type: BLOOD SPECIMENOrdering Facility: [facility] Address: [address] [place] [address] Performed By: #### 5 7021-8 ####[facility] LABCLIA [id number] [place] [id number] [place] Basophils/100 WBC (Bld) 0.4 % Normal [facility] Comment on above: Order Comment: Speci men Type: BLOOD SPECIMENOrdering Facility: [facility] Address: [address] [place] [address] Performed By: #### 5 7021-8 ####[facility] LABCLIA [id number] [place] [address] [place] Differential cell count method Nom (Bld) Auto Normal [facility] Comment on above: Order Comment: Speci men Type: BLOOD SPECIMENOrdering Facility: [facility] Address: [address] [place] [address] Performed By: #### 5 7021-8 ####[facility] LABCLIA [id number] [place] [id number] [place] Eosinophils (Bld) [#/Vol] 0.30 10*3/uL Normal <0.46 [facility] [facility] Comment on above: Order Comment: Speci men Type: BLOOD SPECIMENOrdering Facility: [facility] Address: [address] [place] [address] Performed By: #### 5 7021-8 ####[facility] [id number] [address], [facility]95 [place] Eosinophils/100 WBC (Bld) 4.0 % Normal [facility] Comment on above: Order Comment: Speci men Type: BLOOD SPECIMENOrdering Facility: [facility] Address: [address] [place] [address] Performed By: #### 5 7021-8 ####[facility]IA [id number] [place] [address] [place] Erythrocyte distribution width (RBC) [Ratio] 19.8 % High 11.5-15.0 [facility] Comment on above: Order Comment: Speci men Type: BLOOD SPECIMENOrdering Facility: [facility] Address: [address] [place] [address] Performed By: #### 5 7021-8 ####[facility] LABIA [id number] [place] [address] [place] Hematocrit (Bld) [Volume fraction] 30.5 % Low 36.0-46.0 [facility] Comment on above: Order Comment: Speci men Type: BLOOD SPECIMENOrdering Facility: [facility] Address: [address] [place] [address] Performed By: #### 5 7021-8 ####[facility]IA [id number] [place] [address] [place] Hemoglobin (Bld) [Mass/Vol] 9.7 g/dL Low 11.5-15.5 [facility] Comment on above: Order Comment: Speci men Type: BLOOD SPECIMENOrdering Facility: [facility] Address: [address] [place] [address] Performed By: #### 5 7021-8 ####[facility]IA [id number] [place] [address] [place] Immature granulocytes (Bld) [#/Vol] 0.05 10*3/uL Normal <0.10 [facility] Comment on above: Order Comment: Speci men Type: BLOOD SPECIMENOrdering Facility: [facility] Address: [address] [place] [address] Performed By: #### 5 7021-8 ####[facility]CL[facility] [id number] [place] [address] [place] Immature granulocytes/100 WBC (Bld) 0.7 % Normal [facility] Comment on above: Order Comment: Speci men Type: BLOOD SPECIMENOrdering Facility: [facility] Address: [address] [place] [address] Performed By: #### 5 7021-8 ####[facility] LABIA [id number] [place] [address] [place] Lymphocytes (Bld) [#/Vol] 1.12 10*3/uL Normal 1.00-4.00 [facility] Comment on above: Order Comment: Speci men Type: BLOOD SPECIMENOrdering Facility: [facility] Address: [address] [place] [address] Performed By: #### 5 7021-8 ####[facility]IA [id number] [place] [address] [place] Lymphocytes/100 WBC (Bld) 14.9 % Normal [facility] Comment on above: Order Comment: Speci men Type: BLOOD SPECIMENOrdering Facility: [facility] Address: [address] [place] [address] Performed By: #### 5 7021-8 ####[facility]IA [id number] [place] [address] [place] MCH (RBC) [Entitic mass] 27.4 pg Normal 26.0-34.0 [facility] Comment on above: Order Comment: Speci men Type: BLOOD SPECIMENOrdering Facility: [facility] Address: [address] [place] [address] Performed By: #### 5 7021-8 ####[facility]IA [id number] [place] [address] [place] MCHC (RBC) [Mass/Vol] 31.8 g/dL Normal 30.5-36.0 [facility] Comment on above: Order Comment: Speci men Type: BLOOD SPECIMENOrdering Facility: [facility] Address: [address] [place] [address] Performed By: #### 5 7021-8 ####[facility] [id number] [place] [address] [place] MCV (RBC) [Entitic vol] 86.2 fL Normal 80.0-100.0 [facility] Comment on above: Order Comment: Speci men Type: BLOOD SPECIMENOrdering Facility: [facility] Address: [address] [place] [address] Performed By: #### 5 7021-8 ####[facility]IA [id number] [place] [address] [place] Monocytes (Bld) [#/Vol] 0.58 10*3/uL Normal <0.87 [facility] Comment on above: Order Comment: Speci men Type: BLOOD SPECIMENOrdering Facility: [facility] Address: [address] [place] [address] Performed By: #### 5 7021-8 ####[facility] [id number] [place] [address] [place] Monocytes/100 WBC (Bld) 7.7 % Normal [facility] Comment on above: Order Comment: Speci men Type: BLOOD SPECIMENOrdering Facility: [facility] Address: [address] [place] [address] Performed By: #### 5 7021-8 ####[facility] LABIA [id number] [place] [address] [place] Neutrophils (Bld) [#/Vol] 5.45 10*3/uL Normal 1.45-7.50 [facility] Comment on above: Order Comment: Speci men Type: BLOOD SPECIMENOrdering Facility: [facility] Address: [address] [place] [address] Performed By: #### 5 7021-8 ####[facility]CL[facility] [id number] [place] [address] [place] Neutrophils/100 WBC (Bld) 72.3 % Normal [facility] Comment on above: Order Comment: Speci men Type: BLOOD SPECIMENOrdering Facility: [facility] Address: [address] [place] [address] Performed By: #### 5 7021-8 ####[facility]CL[facility] [id number] [place] [address] [place] Nucleated RBC (Bld) [#/Vol] 10*3/uL Normal <0.01 [facility] Comment on above: Order Comment: Speci men Type: BLOOD SPECIMENOrdering Facility: [facility] Address: [address] [place] [address] Performed By: #### 5 7021-8 ####[facility] [id number] [place] [address] [place] Nucleated RBC/100 WBC (Bld) [Ratio] 0.0 /100 WBC Normal [facility] Comment on above: Order Comment: Speci men Type: BLOOD SPECIMENOrdering Facility: [facility] Address: [address] [place] [address] Performed By: #### 5 7021-8 ####[facility]IA [id number] [place] [id number] [place] Platelet mean volume (Bld) [Entitic vol] 9.7 fL Normal 9.0-12.7 [facility] Comment on above: Order Comment: Speci men Type: BLOOD SPECIMENOrdering Facility: [facility] Address: [address] [place] [address] Performed By: #### 5 7021-8 ####[facility] [id number] [place] [id number] [place] Platelets (Bld) [#/Vol] 428 10*3/uL High 150-400 [facility] Comment on above: Order Comment: Speci men Type: BLOOD SPECIMENOrdering Facility: [facility] Address: [address] [place] [address] Performed By: #### 5 7021-8 ####[facility]CL[facility] [id number] [place] [address] [place] RBC (Bld) [#/Vol] 3.54 10*6/uL Low 3.90-5.20 [facility] Comment on above: Order Comment: Speci men Type: BLOOD SPECIMENOrdering Facility: [facility] Address: [address] [place] [address] Performed By: #### 5 7021-8 ####[facility]CL[facility] [id number] [place] [address] [place] WBC (Bld) [#/Vol] 7.53 10*3/uL Normal 3.70-11.00 [facility] Comment on above: Order Comment: Speci men Type: BLOOD SPECIMENOrdering Facility: [facility] Address: [address] [place] [address] Performed By: #### 5 7021-8 ####[facility] [id number] [place] [address] [place] CNCNPATEDon 12-21-2024 CNCNPATED Normal [facility] CNPNon 12-21-2024 CNPN Normal [facility] CONSULT PROGon 12-21-2024 CONSULT PROG Normal [facility] CONSULT PROG Normal [facility] CRP SerPl-mCncon 12-21-2024 CRP [Mass/Vol] 2.9 mg/dL High <0.9 [facility] Comment on above: Order Comment: Speci men Type: BLOOD SPECIMENOrdering Facility: [facility] Address: [address] [place] [address] Performed By: #### 1 988-5 ####[facility]CL[facility] [id number] [address] [address] [place] Comprehensive metabolic 2000 panelon 12-21-2024 Albumin [Mass/Vol] 2.9 g/dL Low 3.9-4.9 [facility] Comment on above: Order Comment: Speci men Type: BLOOD SPECIMENOrdering Facility: [facility] Address: [address] [place] [address] Performed By: #### 2 4323-8, , 2776- ####[facility]CL[facility] [id number] [address] [address] [place] ALP [Catalytic activity/Vol] 123 U/L Normal 34-123 [facility] Comment on above: Order Comment: Speci men Type: BLOOD SPECIMENOrdering Facility: [facility] Address: [address] [place] [address] Performed By: #### 2 4323-8, , 2776-06 ####[facility]CL[facility] [id number] [address] [address] [place] ALT [Catalytic activity/Vol] 34 U/L Normal 7-38 [facility] Comment on above: Order Comment: Speci men Type: BLOOD SPECIMENOrdering Facility: [facility] Address: [address] [place], [place] [address] Performed By: #### 2 4323-8, , 2776-06 ####[facility]CL[facility] [id number] [address] [address] [place] Anion gap [Moles/Vol] 9 mmol/L Normal 8-15 [facility] Comment on above: Order Comment: Speci men Type: BLOOD SPECIMENOrdering Facility: [facility] Address: [address] [place], [place] [address] Performed By: #### 2 4323-8, 16242-9, 2776- ####[facility]CL[facility] [id number] [place] [id number] [place] AST [Catalytic activity/Vol] 26 U/L Normal 13-35 [facility] Comment on above: Order Comment: Speci men Type: BLOOD SPECIMENOrdering Facility: [facility] Address: [address] [place] [address] Performed By: #### 2 4323-8, , 2776-06 ####[facility]CL[facility] [id number] [place] [id number] [place] Bilirubin [Mass/Vol] 0.2 mg/dL Normal 0.2-1.3 [facility] Comment on above: Order Comment: Speci men Type: BLOOD SPECIMENOrdering Facility: [facility] Address: [address] [place] [address] Performed By: #### 2 4323-8, , 2776-06 ####[facility]IA [id number] [place] [id number] [place] Calcium [Mass/Vol] 9.1 mg/dL Normal 8.5-10.2 [facility] Comment on above: Order Comment: Speci men Type: BLOOD SPECIMENOrdering Facility: [facility] Address: [address] [place] [address] Performed By: #### 2 4323-8, , 2776-06 ####[facility]IA [id number] [place] [id number] [place] Chloride [Moles/Vol] 105 mmol/L Normal 98-107 [facility] Comment on above: Order Comment: Speci men Type: BLOOD SPECIMENOrdering Facility: [facility] Address: [address] [place] [address] Performed By: #### 2 4323-8, , 2776-06 ####[facility] LABIA [id number] [address] [place] [address] [place] CO2 [Moles/Vol] 23 mmol/L Normal 22-30 [facility] Comment on above: Order Comment: Dora finch Type: BLOOD SPECIMENOrdering Facility: [facility] Address: [address] [place] [address] Performed By: #### 2 4323-8, , 2776-06 ####[facility]CL[facility] [id number] [place] [id number] [place] Creatinine [Mass/Vol] 0.70 mg/dL Normal 0.58-0.96 [facility] Comment on above: Order Comment: Dora finch Type: BLOOD SPECIMENOrdering Facility: [facility] Address: [address] [place] [address] Performed By: #### 2 4323-8, , 2776-06 ####[facility]CL[facility] [id number] [address] [place] OF [facility] Creatinine and Glomerular filtration rate.predicted panel (S/P/Bld) 112 mL/min/1.73m??? Normal >=60 [facility] Comment on above: Order Comment: Dora finch Type: BLOOD SPECIMENOrdering Facility: [facility] Address: [address] [place] [address] Result Comment: Zeny mated Glomerular Filtration Rate [...] Performed By: #### 2 4323-8, , 2776-06 ####[facility]CL[facility] [id number] [place] [id number] [place] Glucose [Mass/Vol] 125 mg/dL High 74-99 [facility] Comment on above: Order Comment: Florii men Type: BLOOD SPECIMENOrdering Facility: [facility] Address: [address] [place] [address] Result Comment: The [place] [employer] (ADA) provides guidance for cutoff [...] Standards of Medical Care in Diabetes 2016, [place] [employer]. Diabetes Care. 2016.39(Suppl 1). Performed By: #### 2 4323-8, , 2776-06 ####[facility]CL[facility] [id number] [place] [address] [place] Potassium [Moles/Vol] 4.1 mmol/L Normal 3.7-5.1 [facility] Comment on above: Order Comment: Speci men Type: BLOOD SPECIMENOrdering Facility: [facility] Address: [address] [place] [address] Performed By: #### 2 4323-8, , 2776-06 ####[facility]CL[facility] [id number] [place] [id number] [place] Protein [Mass/Vol] 6.2 g/dL Low 6.3-8.0 [facility] Comment on above: Order Comment: Speci men Type: BLOOD SPECIMENOrdering Facility: [facility] Address: [address] [place], [place] [address] Performed By: #### 2 4323-8, , 2776-06 ####[facility] LABCL[facility] [id number] [facility] [address] [address] [place] Sodium [Moles/Vol] 137 mmol/L Normal 136-144 [facility] Comment on above: Order Comment: Speci men Type: BLOOD SPECIMENOrdering Facility: [facility] Address: [address] [place] [address] Performed By: #### 2 4323-8, , 2776-06 ####[facility]CL[facility] [id number] [address] [place] [address] [place] Urea nitrogen [Mass/Vol] 15 mg/dL Normal 7-21 [facility] Comment on above: Order Comment: Speci men Type: BLOOD SPECIMENOrdering Facility: [facility] Address: [address] [place], [place] [address] Performed By: #### 2 4323-8, , 2776-06 ####[facility]CL[facility] [id number] [address] [place] [address] [place] Magnesium SerPl-mCncon 12-21 Magnesium [Mass/Vol] 2.1 mg/dL Normal 1.7-2.3 [facility] Comment on above: Order Comment: Speci men Type: BLOOD SPECIMENOrdering Facility: [facility] Address: [address] [place], [place] [address] Performed By: #### 2 432-8, , 2776-06 ####[facility]CL[facility] [id number] [address] [place] [address] [place] PT EDon 12-21-2024 PT ED Normal [facility] PT ED Normal [facility] Phosphate SerPl-mCncon 12-21 Phosphate [Mass/Vol] 4.4 mg/dL Normal 2.7-4.8 [facility] Comment on above: Order Comment: Speci men Type: BLOOD SPECIMENOrdering Facility: [facility] Address: [address] [place] [address] Performed By: #### 2 4323-8, , 2776-06 ####[facility] [id number] [address] [place] [address] [place] CASE MANAGEMon 12-20-2024 CASE MANAGEM Normal [facility] CASE MANAGEM Normal [facility] CBC W Auto Differential pane l (Bld)on 12-20-2024 Basophils (Bld) [#/Vol] 0.04 10*3/uL Normal <0.11 [facility] Comment on above: Order Comment: Speci men Type: BLOOD SPECIMENOrdering Facility: [facility] Address: [address] [place] [address] Performed By: #### 5 7021-8 ####[facility]IA [id number] [facility] [place] [address] [place] Basophils/100 WBC (Bld) 0.5 % Normal [facility] Comment on above: Order Comment: Speci men Type: BLOOD SPECIMENOrdering Facility: [facility] Address: [address] [place] [address] Performed By: #### 5 7021-8 ####[facility] [id number] [facility] [place] [address] [place] Differential cell count method Nom (Bld) Auto Normal [facility] Comment on above: Order Comment: Speci men Type: BLOOD SPECIMENOrdering Facility: [facility] Address: [address] [place] [address] Performed By: #### 5 7021-8 ####[facility] [id number] [facility] [place] [address] [place] Eosinophils (Bld) [#/Vol] 0.25 10*3/uL Normal <0.46 [facility] Comment on above: Order Comment: Speci men Type: BLOOD SPECIMENOrdering Facility: [facility] Address: [address] [place] [address] Performed By: #### 5 7021-8 ####[facility] [id number] [facility] [place] [address] [place] Eosinophils/100 WBC (Bld) 3.4 % Normal [facility] Comment on above: Order Comment: Speci men Type: BLOOD SPECIMENOrdering Facility: [facility] Address: [address] [place] [address] Performed By: #### 5 7021-8 ####[facility] [id number] [place] [address] [place] Erythrocyte distribution width (RBC) [Ratio] 20.0 % High 11.5-15.0 [facility] Comment on above: Order Comment: Speci men Type: BLOOD SPECIMENOrdering Facility: [facility] Address: [address] [place] [address] Performed By: #### 5 7021-8 ####[facility] [id number] [place] [address] [place] Hematocrit (Bld) [Volume fraction] 26.9 % Low 36.0-46.0 [facility] Comment on above: Order Comment: Speci men Type: BLOOD SPECIMENOrdering Facility: [facility] Address: [address] [place] [address] Performed By: #### 5 7021-8 ####[facility] [id number] [place] [address] [place] Hemoglobin (Bld) [Mass/Vol] 8.6 g/dL Low 11.5-15.5 [facility] Comment on above: Order Comment: Speci men Type: BLOOD SPECIMENOrdering Facility: [facility] Address: [address] [place] [address] Performed By: #### 5 7021-8 ####[facility] [id number] [place] [address] [place] Immature granulocytes (Bld) [#/Vol] 0.05 10*3/uL Normal <0.10 [facility] Comment on above: Order Comment: Speci men Type: BLOOD SPECIMENOrdering Facility: [facility] Address: [address] [place] [address] Performed By: #### 5 7021-8 ####[facility] [id number] [place] [address] [place] Immature granulocytes/100 WBC (Bld) 0.7 % Normal [facility] Comment on above: Order Comment: Speci men Type: BLOOD SPECIMENOrdering Facility: [facility] Address: [address] [place] [address] Performed By: #### 5 7021-8 ####[facility] [id number] [place] [address] [place] Lymphocytes (Bld) [#/Vol] 1.26 10*3/uL Normal 1.00-4.00 [facility] Comment on above: Order Comment: Speci men Type: BLOOD SPECIMENOrdering Facility: [facility] Address: [address] [place] [address] Performed By: #### 5 7021-8 ####[facility] [id number] [place] [address] [place] Lymphocytes/100 WBC (Bld) 17.0 % Normal [facility] Comment on above: Order Comment: Speci men Type: BLOOD SPECIMENOrdering Facility: [facility] Address: [address] [place] [address] Performed By: #### 5 7021-8 ####[facility] [id number] [place] [address] [place] MCH (RBC) [Entitic mass] 27.0 pg Normal 26.0-34.0 [facility] Comment on above: Order Comment: Speci men Type: BLOOD SPECIMENOrdering Facility: [facility] Address: [address] [place] [address] Performed By: #### 5 7021-8 ####[facility] [id number] [place] [address] [place] MCHC (RBC) [Mass/Vol] 32.0 g/dL Normal 30.5-36.0 [facility] Comment on above: Order Comment: Speci men Type: BLOOD SPECIMENOrdering Facility: [facility] Address: [address] [place] [address] Performed By: #### 5 7021-8 ####[facility] [id number] [place] [address] [place] MCV (RBC) [Entitic vol] 84.6 fL Normal 80.0-100.0 [facility] Comment on above: Order Comment: Speci men Type: BLOOD SPECIMENOrdering Facility: [facility] Address: [address] [place] [address] Performed By: #### 5 7021-8 ####[facility] [id number] [place] [address] [place] Monocytes (Bld) [#/Vol] 0.50 10*3/uL Normal <0.87 [facility] Comment on above: Order Comment: Speci men Type: BLOOD SPECIMENOrdering Facility: [facility] Address: [address] [place] [address] Performed By: #### 5 7021-8 ####[facility] [id number] [place] [address] [place] Monocytes/100 WBC (Bld) 6.7 % Normal [facility] Comment on above: Order Comment: Speci men Type: BLOOD SPECIMENOrdering Facility: [facility] Address: [address] [place] [address] Performed By: #### 5 7021-8 ####[facility] [id number] [place] [address] [place] Neutrophils (Bld) [#/Vol] 5.33 10*3/uL Normal 1.45-7.50 [facility] Comment on above: Order Comment: Speci men Type: BLOOD SPECIMENOrdering Facility: [facility] Address: [address] [place] [address] Performed By: #### 5 7021-8 ####[facility] [id number] [place] [address] [place] Neutrophils/100 WBC (Bld) 71.7 % Normal [facility] Comment on above: Order Comment: Speci men Type: BLOOD SPECIMENOrdering Facility: [facility] Address: [address] [place] [address] Performed By: #### 5 7021-8 ####[facility] [id number] [address], [place] [address] [place] Nucleated RBC (Bld) [#/Vol] 10*3/uL Normal <0.01 [facility] Comment on above: Order Comment: Speci men Type: BLOOD SPECIMENOrdering Facility: [facility] Address: [address] [place] [address] Performed By: #### 5 7021-8 ####[facility] [id number] [place] [address] [place] Nucleated RBC/100 WBC (Bld) [Ratio] 0.0 /100 WBC Normal [facility] Comment on above: Order Comment: Speci men Type: BLOOD SPECIMENOrdering Facility: [facility] Address: [address] [place] [address] Performed By: #### 5 7021-8 ####[facility] [id number] [place] [address] [place] Platelet mean volume (Bld) [Entitic vol] 9.2 fL Normal 9.0-12.7 [facility] Comment on above: Order Comment: Speci men Type: BLOOD SPECIMENOrdering Facility: [facility] Address: [address] [place] [address] Performed By: #### 5 7021-8 ####[facility] [id number] [place] [address] [place] Platelets (Bld) [#/Vol] 365 10*3/uL Normal 150-400 [facility] Comment on above: Order Comment: Speci men Type: BLOOD SPECIMENOrdering Facility: [facility] Address: [address] [place] [address] Performed By: #### 5 7021-8 ####[facility] [id number] [place] [id number] [place] RBC (Bld) [#/Vol] 3.18 10*6/uL Low 3.90-5.20 [facility] Comment on above: Order Comment: Speci men Type: BLOOD SPECIMENOrdering Facility: [facility] Address: [address] [place] [address] Performed By: #### 5 7021-8 ####[facility] [id number] [place] [address] [place] WBC (Bld) [#/Vol] 7.43 10*3/uL Normal 3.70-11.00 [facility] Comment on above: Order Comment: Speci men Type: BLOOD SPECIMENOrdering Facility: [facility] Address: [address] [place] [address] Performed By: #### 5 7021-8 ####[facility]IA [id number] [place] [id number] [place] CONSULTon 12-20-2024 CONSULT Normal [facility] CONSULT Normal [facility] CONSULT PROGon 12-20-2024 CONSULT PROG Normal [facility] Comprehensive metabolic 2000 panelon 12-20-2024 Albumin [Mass/Vol] 2.7 g/dL Low 3.9-4.9 [facility] Comment on above: Order Comment: Speci men Type: BLOOD SPECIMENOrdering Facility: [facility] Address: [address] [place] [address] Performed By: #### 1 9123-9, 36091-9, 2777-1 ####[facility] [id number] [address] [place] [address] [place] ALP [Catalytic activity/Vol] 95 U/L Normal 34-123 [facility] Comment on above: Order Comment: Speci men Type: BLOOD SPECIMENOrdering Facility: [facility] Address: [address] [place] [address] Performed By: #### 1 9123-9, 41969-6, 277- ####[facility] [id number] [address] [address] [place] ALT [Catalytic activity/Vol] 23 U/L Normal 7-38 [facility] Comment on above: Order Comment: Speci men Type: BLOOD SPECIMENOrdering Facility: [facility] Address: [address] [place] [address] Performed By: #### 1 9123-9, 52922-1, 277- ####[facility] [id number] [place] [address] [place] Anion gap [Moles/Vol] 11 mmol/L Normal 8-15 [facility] Comment on above: Order Comment: Speci men Type: BLOOD SPECIMENOrdering Facility: [facility] Address: [address] [place] [address] Performed By: #### 1 9123-9, 53510-0, 277- ####[facility] [id number] [place] [address] [place] AST [Catalytic activity/Vol] 20 U/L Normal 13-35 [facility] Comment on above: Order Comment: Speci men Type: BLOOD SPECIMENOrdering Facility: [facility] Address: [address] [place] [address] Performed By: #### 1 9123-9, 59313-7, 2777-1 ####[facility] [id number] [address] [id number], [place] [address] [place] Bilirubin [Mass/Vol] 0.2 mg/dL Normal 0.2-1.3 [facility] Comment on above: Order Comment: Speci men Type: BLOOD SPECIMENOrdering Facility: [facility] Address: [address] [place] [address] Performed By: #### 1 9123-9, 19420-5, 2776- ####[facility] [id number] [address] [place] [address] [place] Calcium [Mass/Vol] 8.8 mg/dL Normal 8.5-10.2 [facility] Comment on above: Order Comment: Speci men Type: BLOOD SPECIMENOrdering Facility: [facility] Address: [address] [place] [address] Performed By: #### 1 9123-9, 55503-3, 2776- ####[facility] [id number] [place] [address] [place] Chloride [Moles/Vol] 106 mmol/L Normal 98-107 [facility] Comment on above: Order Comment: Speci men Type: BLOOD SPECIMENOrdering Facility: [facility] Address: [address] [place] [address] Performed By: #### 1 9123-9, 17025-3, 2776- ####[facility] [id number] [address], [facility]95 [place] CO2 [Moles/Vol] 22 mmol/L Normal 22-30 [facility] Comment on above: Order Comment: Speci men Type: BLOOD SPECIMENOrdering Facility: [facility] Address: [address] [place] [address] Performed By: #### 1 9123-9, 82034-8, 2776- ####[facility] [id number] [address] [place] [address] [place] Creatinine [Mass/Vol] 0.68 mg/dL Normal 0.58-0.96 [facility] Comment on above: Order Comment: Dora finch Type: BLOOD SPECIMENOrdering Facility: [facility] Address: [address] [place] [address] Performed By: #### 1 9123-9, 62820-8, 277- ####[facility] [id number] [place] [address] [place] Creatinine and Glomerular filtration rate.predicted panel (S/P/Bld) 112 mL/min/1.73m??? Normal >=60 [facility] Comment on above: Order Comment: Dora finch Type: BLOOD SPECIMENOrdering Facility: [facility] Address: [address] [place] [address] Result Comment: Zeny mated Glomerular Filtration Rate [...] actual GFR. Performed By: #### 1 9123-9, 60823-0, 27712-25 ####[facility] [id number] [place] [address] [place] Glucose [Mass/Vol] 127 mg/dL High 74-99 [facility] Comment on above: Order Comment: Dora finch Type: BLOOD SPECIMENOrdering Facility: [facility] Address: [address] [place] [address] Result Comment: The [place] Diabetes Association (ADA) provides guidance for cutoff [...] Standards of Medical Care in Diabetes 2016, [place] [employer]. Diabetes Care. 2016.39(Suppl 1). Performed By: #### 1 9123-9, 58998-6, 277- ####[facility] [id number] [address] [address] [place] Potassium [Moles/Vol] 4.0 mmol/L Normal 3.7-5.1 [facility] Comment on above: Order Comment: Speci men Type: BLOOD SPECIMENOrdering Facility: [facility] Address: [address] [place], [place] [address] Performed By: #### 1 9123-9, 90230-8, 27712-25 ####[facility] [id number] [address] [address] [place] Protein [Mass/Vol] 5.9 g/dL Low 6.3-8.0 [facility] Comment on above: Order Comment: Speci men Type: BLOOD SPECIMENOrdering Facility: [facility] Address: [address] [place], [place] [address] Performed By: #### 1 9123-9, 14461-3, 2776-06 ####[facility] [id number] [address] [address] [place] Sodium [Moles/Vol] 139 mmol/L Normal 136-144 [facility] Comment on above: Order Comment: Speci men Type: BLOOD SPECIMENOrdering Facility: [facility] Address: [address] [place] [address] Performed By: #### 1 9123-9, 32408-5, 2776-06 ####[facility] [id number] [address] [address] [place] Urea nitrogen [Mass/Vol] 10 mg/dL Normal 7-21 [facility] Comment on above: Order Comment: Speci men Type: BLOOD SPECIMENOrdering Facility: [facility] Address: [address] [place], [place] [address] Performed By: #### 1 9123-9, 69485-3, 2777-1 ####[facility] [id number] [address], [facility]95 [place] Magnesium SerPl-ncon 12-20 Magnesium [Mass/Vol] 1.9 mg/dL Normal 1.7-2.3 [facility] Comment on above: Order Comment: Speci men Type: BLOOD SPECIMENOrdering Facility: [facility] Address: [address] [place] [address] Performed By: #### 1 9123-9, 88972-5, 2777-1 ####[facility] [id number] [place] [address] [place] NUTRITIONon 12-20-2024 NUTRITION Normal [facility] Phosphate SerPl-mCncon 12-20 Phosphate [Mass/Vol] 4.6 mg/dL Normal 2.7-4.8 [facility] Comment on above: Order Comment: Speci men Type: BLOOD SPECIMENOrdering Facility: [facility] Address: [address] [place] [address] Performed By: #### 1 9123-9, 57331-0, 2777-1 ####[facility] [id number] [address], [place] [address] [place] CASE MANAGEMon 12-19-2024 CASE MANAGEM Normal [facility] CBC W Auto Differential pane l (Bld)on 12-19-2024 Basophils (Bld) [#/Vol] 10*3/uL Normal <0.11 [facility] Comment on above: Order Comment: Speci men Type: BLOOD SPECIMENOrdering Facility: [facility] Address: [address] [place] [address] Performed By: #### 5 7021-8 ####[facility] [id number] [id number], [place] [address] [place] Basophils/100 WBC (Bld) 0.3 % Normal [facility] Comment on above: Order Comment: Speci men Type: BLOOD SPECIMENOrdering Facility: [facility] Address: [address] [place] [address] Performed By: #### 5 7021-8 ####[facility] [id number] [place] [address] [place] Differential cell count method Nom (Bld) Auto Normal [facility] Comment on above: Order Comment: Speci men Type: BLOOD SPECIMENOrdering Facility: [facility] Address: [address] [place] [address] Performed By: #### 5 7021-8 ####[facility] [id number] [place] [address] [place] Eosinophils (Bld) [#/Vol] 0.24 10*3/uL Normal <0.46 [facility] Comment on above: Order Comment: Speci men Type: BLOOD SPECIMENOrdering Facility: [facility] Address: [address] [place] [address] Performed By: #### 5 7021-8 ####[facility] [id number] [place] [address] [place] Eosinophils/100 WBC (Bld) 3.0 % Normal [facility] Comment on above: Order Comment: Speci men Type: BLOOD SPECIMENOrdering Facility: [facility] Address: [address] [place] [address] Performed By: #### 5 7021-8 ####[facility] [id number] [place] [address] [place] Erythrocyte distribution width (RBC) [Ratio] 19.9 % High 11.5-15.0 [facility] Comment on above: Order Comment: Speci men Type: BLOOD SPECIMENOrdering Facility: [facility] Address: [address] [place] [address] Performed By: #### 5 7021-8 ####[facility] [id number] [address], [place] [address] [place] Hematocrit (Bld) [Volume fraction] 26.4 % Low 36.0-46.0 [facility] Comment on above: Order Comment: Speci men Type: BLOOD SPECIMENOrdering Facility: [facility] Address: [address] [place] [address] Performed By: #### 5 7021-8 ####[facility] [id number] [address], [place] [address] [place] Hemoglobin (Bld) [Mass/Vol] 8.5 g/dL Low 11.5-15.5 [facility] Comment on above: Order Comment: Speci men Type: BLOOD SPECIMENOrdering Facility: [facility] Address: [address] [place] [address] Performed By: #### 5 7021-8 ####[facility] [id number] [address], [place] [address] [place] Immature granulocytes (Bld) [#/Vol] 0.05 10*3/uL Normal <0.10 [facility] Comment on above: Order Comment: Speci men Type: BLOOD SPECIMENOrdering Facility: [facility] Address: [address] [place] [address] Performed By: #### 5 7021-8 ####[facility] [id number] [place] [address] [place] Immature granulocytes/100 WBC (Bld) 0.6 % Normal [facility] Comment on above: Order Comment: Speci men Type: BLOOD SPECIMENOrdering Facility: [facility] Address: [address] [place] [address] Performed By: #### 5 7021-8 ####[facility] [id number] [place] [address] [place] Lymphocytes (Bld) [#/Vol] 1.35 10*3/uL Normal 1.00-4.00 [facility] Comment on above: Order Comment: Speci men Type: BLOOD SPECIMENOrdering Facility: [facility] Address: [address] [place] [address] Performed By: #### 5 7021-8 ####[facility] [id number] [place] [address] [place] Lymphocytes/100 WBC (Bld) 17.1 % Normal [facility] Comment on above: Order Comment: Speci men Type: BLOOD SPECIMENOrdering Facility: [facility] Address: [address] [place] [address] Performed By: #### 5 7021-8 ####[facility]IA [id number] [place] [address] [place] MCH (RBC) [Entitic mass] 27.3 pg Normal 26.0-34.0 [facility] Comment on above: Order Comment: Speci men Type: BLOOD SPECIMENOrdering Facility: [facility] Address: [address] [place] [address] Performed By: #### 5 7021-8 ####[facility] [id number] [address] [place] MCHC (RBC) [Mass/Vol] 32.2 g/dL Normal 30.5-36.0 [facility] Comment on above: Order Comment: Speci men Type: BLOOD SPECIMENOrdering Facility: [facility] Address: [address] [place] [address] Performed By: #### 5 7021-8 ####[facility] [id number] [address] [place] MCV (RBC) [Entitic vol] 84.9 fL Normal 80.0-100.0 [facility] Comment on above: Order Comment: Speci men Type: BLOOD SPECIMENOrdering Facility: [facility] Address: [address] [place] [address] Performed By: #### 5 7021-8 ####[facility] [id number] [address], [place] [address] [place] Monocytes (Bld) [#/Vol] 0.67 10*3/uL Normal <0.87 [facility] Comment on above: Order Comment: Speci men Type: BLOOD SPECIMENOrdering Facility: [facility] Address: [address] [place] [address] Performed By: #### 5 7021-8 ####[facility] [id number] [address], [place] [address] [place] Monocytes/100 WBC (Bld) 8.5 % Normal [facility] Comment on above: Order Comment: Speci men Type: BLOOD SPECIMENOrdering Facility: [facility] Address: [address] [place] [address] Performed By: #### 5 7021-8 ####[facility] [id number] [address], [facility]95 [place] Neutrophils (Bld) [#/Vol] 5.58 10*3/uL Normal 1.45-7.50 [facility] Comment on above: Order Comment: Speci men Type: BLOOD SPECIMENOrdering Facility: [facility] Address: [address] [place] [address] Performed By: #### 5 7021-8 ####[facility] [id number] [facility] [address], [facility]95 [place] Neutrophils/100 WBC (Bld) 70.5 % Normal [facility] Comment on above: Order Comment: Speci men Type: BLOOD SPECIMENOrdering Facility: [facility] Address: [address] [place] [address] Performed By: #### 5 7021-8 ####[facility] [id number] [address] [place] [address] [place] Nucleated RBC (Bld) [#/Vol] 10*3/uL Normal <0.01 [facility] Comment on above: Order Comment: Speci men Type: BLOOD SPECIMENOrdering Facility: [facility] Address: [address] [place] [address] Performed By: #### 5 7021-8 ####[facility] [id number] [place] [address] [place] Nucleated RBC/100 WBC (Bld) [Ratio] 0.0 /100 WBC Normal [facility] Comment on above: Order Comment: Speci men Type: BLOOD SPECIMENOrdering Facility: [facility] Address: [address] [place] [address] Performed By: #### 5 7021-8 ####[facility] [id number] [place] [address] [place] Platelet mean volume (Bld) [Entitic vol] 9.7 fL Normal 9.0-12.7 [facility] Comment on above: Order Comment: Speci men Type: BLOOD SPECIMENOrdering Facility: [facility] Address: [address] [place] [address] Performed By: #### 5 7021-8 ####[facility] [id number] [place] [address] [place] Platelets (Bld) [#/Vol] 362 10*3/uL Normal 150-400 [facility] Comment on above: Order Comment: Speci men Type: BLOOD SPECIMENOrdering Facility: [facility] Address: [address] [place] [address] Performed By: #### 5 7021-8 ####[facility] [id number] [place] [address] [place] RBC (Bld) [#/Vol] 3.11 10*6/uL Low 3.90-5.20 [facility] Comment on above: Order Comment: Speci men Type: BLOOD SPECIMENOrdering Facility: [facility] Address: [address] [place], [place] [address] Performed By: #### 5 7021-8 ####[facility] [id number] [address] [place] [address] [place] WBC (Bld) [#/Vol] 7.91 10*3/uL Normal 3.70-11.00 [facility] Comment on above: Order Comment: Speci men Type: BLOOD SPECIMENOrdering Facility: [facility] Address: [address] [place] [address] Performed By: #### 5 7021-8 ####[facility] [id number] [address] [address] [place] CONSULT PROGon 12-19-2024 CONSULT PROG Normal [facility] CRP SerPl-mCncon 12-19-2024 CRP [Mass/Vol] 5.7 mg/dL High <0.9 [facility] Comment on above: Order Comment: Speci men Type: BLOOD SPECIMENOrdering Facility: [facility] Address: [address] [place] [address] Performed By: #### 2 4323-8, 1987-10, , 2776-06 ####[facility] [id number] [address] [address] [place] Comprehensive metabolic 2000 panelon 12-19-2024 Albumin [Mass/Vol] 2.8 g/dL Low 3.9-4.9 [facility] Comment on above: Order Comment: Speci men Type: BLOOD SPECIMENOrdering Facility: [facility] Address: [address] [place], [place] [address] Performed By: #### 2 4323-8, 1987-10, , 2776-06 ####[facility] [id number] [address] [place] [address] [place] ALP [Catalytic activity/Vol] 85 U/L Normal 34-123 [facility] Comment on above: Order Comment: Speci men Type: BLOOD SPECIMENOrdering Facility: [facility] Address: [address] [place] [address] Performed By: #### 2 432-8, 1987-10, , 2776-06 ####[facility] [id number] [place] [address] [place] ALT [Catalytic activity/Vol] 12 U/L Normal 7-38 [facility] Comment on above: Order Comment: Speci men Type: BLOOD SPECIMENOrdering Facility: [facility] Address: [address] [place] [address] Performed By: #### 2 4328, 1987-10, , 2776-06 ####[facility] [id number] [place] [address] [place] Anion gap [Moles/Vol] 11 mmol/L Normal 8-15 [facility] Comment on above: Order Comment: Speci men Type: BLOOD SPECIMENOrdering Facility: [facility] Address: [address] [place] [address] Performed By: #### 2 4328, 1987-10, , 2776-06 ####[facility] [id number] [place] [address] [place] AST [Catalytic activity/Vol] 12 U/L Low 13-35 [facility] Comment on above: Order Comment: Speci men Type: BLOOD SPECIMENOrdering Facility: [facility] Address: [address] [place], [place] [address] Performed By: #### 2 4328, 1987-10, , 2776-06 ####[facility] [id number] [address] [address] [place] Bilirubin [Mass/Vol] 0.3 mg/dL Normal 0.2-1.3 [facility] Comment on above: Order Comment: Speci men Type: BLOOD SPECIMENOrdering Facility: [facility] Address: [address] [place] [address] Performed By: #### 2 432-8, 1987-10, , 2776-06 ####[facility] [id number] [facility] [id number] [address] [place] Calcium [Mass/Vol] 8.6 mg/dL Normal 8.5-10.2 [facility] Comment on above: Order Comment: Speci men Type: BLOOD SPECIMENOrdering Facility: [facility] Address: [address] [place], [place] [address] Performed By: #### 2 432-8, 1987-10, , 2776-06 ####[facility] [id number] [address] [address] [place] Chloride [Moles/Vol] 104 mmol/L Normal 98-107 [facility] Comment on above: Order Comment: Speci men Type: BLOOD SPECIMENOrdering Facility: [facility] Address: [address] [place], [place] [address] Performed By: #### 2 4323-8, 1987-10, , 2776-06 ####[facility] [id number] [facility] [address] [address] [place] CO2 [Moles/Vol] 22 mmol/L Normal 22-30 [facility] Comment on above: Order Comment: Speci men Type: BLOOD SPECIMENOrdering Facility: [facility] Address: [address] [place] [address] Performed By: #### 2 4323-8, 1987-10, , 2776-06 ####[facility] [id number] [facility] AV[facility]UEDAV[facility]ENT[facility] [id number] [address] [place] Creatinine [Mass/Vol] 0.64 mg/dL Normal 0.58-0.96 [facility] Comment on above: Order Comment: Speci men Type: BLOOD SPECIMENOrdering Facility: [facility] Address: [address] [place] [address] Performed By: #### 2 4323-8, 1987-10, , 2776-06 ####[facility] [id number] [address] [address] [place] Creatinine and Glomerular filtration rate.predicted panel (S/P/Bld) 114 mL/min/1.73m??? Normal >=60 [facility] Comment on above: Order Comment: Dora stef Type: BLOOD SPECIMENOrdering Facility: [facility] Address: [address] [place] [address] Result Comment: Zeny mated Glomerular Filtration Rate [...] By: #### 2 4323-8, 1987-10, , 2776-06 ####[facility] [id number] [address] [address] [place] Glucose [Mass/Vol] 103 mg/dL High 74-99 [facility] Comment on above: Order Comment: Dora finch Type: BLOOD SPECIMENOrdering Facility: [facility] Address: [address] [place] [address] Result Comment: The [place] [employer] (ADA) provides guidance for cutoff [...] Standards of Medical Care in Diabetes 2016, [place] [employer]. Diabetes Care. 2016.39(Suppl 1). Performed By: #### 2 432-8, 1987-10, , 2776-06 ####[facility] LABCLIA [id number] [facility] [address] [place] [address] [place] Potassium [Moles/Vol] 3.6 mmol/L Low 3.7-5.1 [facility] Comment on above: Order Comment: Speci men Type: BLOOD SPECIMENOrdering Facility: [facility] Address: [address] [place] [address] [address] Performed By: #### 2 432-8, 1987-10, , 2776-06 ####[facility] [id number] [address] [place] [address] [place] Protein [Mass/Vol] 5.5 g/dL Low 6.3-8.0 [facility] Comment on above: Order Comment: Speci men Type: BLOOD SPECIMENOrdering Facility: [facility] Address: [address] [place] [address] Performed By: #### 2 4328, 1987-10, , 2776-06 ####[facility] [id number] [address] [place] [address] [place] Sodium [Moles/Vol] 137 mmol/L Normal 136-144 [facility] Comment on above: Order Comment: Speci men Type: BLOOD SPECIMENOrdering Facility: [facility] Address: [address] [place] [address] Performed By: #### 2 4323-8, 1987-10, , 2776-06 ####[facility] [id number] [facility] [id number] [address] [place] Urea nitrogen [Mass/Vol] 11 mg/dL Normal 7-21 [facility] Comment on above: Order Comment: Speci men Type: BLOOD SPECIMENOrdering Facility: [facility] Address: [address] [place] [address] Performed By: #### 2 4323-8, 1987-10, , 2776-06 ####[facility] [id number] [place] [id number] [place] Magnesium SerPl-mCncon 12-19 Magnesium [Mass/Vol] 1.9 mg/dL Normal 1.7-2.3 [facility] Comment on above: Order Comment: Speci men Type: BLOOD SPECIMENOrdering Facility: [facility] Address: [address] [place] [address] Performed By: #### 2 4323-8, 1987-10, , 2776-06 ####[facility] [id number] [place] [address] [place] NURSING PROGon 12-19-2024 NURSING PROG Normal [facility] Phosphate SerPl-mCncon 12-19 Phosphate [Mass/Vol] 4.2 mg/dL Normal 2.7-4.8 [facility] Comment on above: Order Comment: Speci men Type: BLOOD SPECIMENOrdering Facility: [facility] Address: [address] [place] [address] Performed By: #### 2 4323-8, 1987-10, , 2776-06 ####[facility] [id number] [place] [address] [place] CBC W Auto Differential pane l (Bld)on 12-18-2024 Basophils (Bld) [#/Vol] 0.03 10*3/uL Normal <0.11 [facility] Comment on above: Order Comment: Speci men Type: BLOOD SPECIMENOrdering Facility: [facility] Address: [address] [place] [address] Performed By: #### 5 7021-8 ####[facility] [id number] [address], [place] [address] [place] Basophils/100 WBC (Bld) 0.4 % Normal [facility] Comment on above: Order Comment: Speci men Type: BLOOD SPECIMENOrdering Facility: [facility] Address: [address] [place] [address] Performed By: #### 5 7021-8 ####[facility] [id number] [address], [place] [address] [place] Differential cell count method Nom (Bld) Auto Normal [facility] Comment on above: Order Comment: Speci men Type: BLOOD SPECIMENOrdering Facility: [facility] Address: [address] [place] [address] Performed By: #### 5 7021-8 ####[facility] [id number] [address], [place] [address] [place] Eosinophils (Bld) [#/Vol] 0.31 10*3/uL Normal <0.46 [facility] Comment on above: Order Comment: Speci men Type: BLOOD SPECIMENOrdering Facility: [facility] Address: [address] [place] [address] Performed By: #### 5 7021-8 ####[facility] [id number] [address], [place] [address] [place] Eosinophils/100 WBC (Bld) 4.4 % Normal [facility] Comment on above: Order Comment: Speci men Type: BLOOD SPECIMENOrdering Facility: [facility] Address: [address] [place] [address] Performed By: #### 5 7021-8 ####[facility] [id number] [address], [place] [address] [place] Erythrocyte distribution width (RBC) [Ratio] 21.3 % High 11.5-15.0 [facility] Comment on above: Order Comment: Speci men Type: BLOOD SPECIMENOrdering Facility: [facility] Address: [address] [place] [address] Performed By: #### 5 7021-8 ####[facility] [id number] [place] [address] [place] Hematocrit (Bld) [Volume fraction] 21.9 % Low 36.0-46.0 [facility] Comment on above: Order Comment: Speci men Type: BLOOD SPECIMENOrdering Facility: [facility] Address: [address] [place] [address] Performed By: #### 5 7021-8 ####[facility] [id number] [place] [address] [place] Hemoglobin (Bld) [Mass/Vol] 6.8 g/dL Low 11.5-15.5 [facility] Comment on above: Order Comment: Speci men Type: BLOOD SPECIMENOrdering Facility: [facility] Address: [address] [place] [address] Performed By: #### 5 7021-8 ####[facility] [id number] [place] [address] [place] Immature granulocytes (Bld) [#/Vol] 0.05 10*3/uL Normal <0.10 [facility] Comment on above: Order Comment: Speci men Type: BLOOD SPECIMENOrdering Facility: [facility] Address: [address] [place] [address] Performed By: #### 5 7021-8 ####[facility] [id number] [place] [address] [place] Immature granulocytes/100 WBC (Bld) 0.7 % Normal [facility] Comment on above: Order Comment: Speci men Type: BLOOD SPECIMENOrdering Facility: [facility] Address: [address] [place] [address] Performed By: #### 5 7021-8 ####[facility] [id number] [place] [address] [place] Lymphocytes (Bld) [#/Vol] 1.19 10*3/uL Normal 1.00-4.00 [facility] Comment on above: Order Comment: Speci men Type: BLOOD SPECIMENOrdering Facility: [facility] Address: [address] [place] [address] Performed By: #### 5 7021-8 ####[facility] [id number] [address] [place] Lymphocytes/100 WBC (Bld) 17.0 % Normal [facility] Comment on above: Order Comment: Speci men Type: BLOOD SPECIMENOrdering Facility: [facility] Address: [address] [place] [address] Performed By: #### 5 7021-8 ####[facility] [id number] [place] [address] [place] MCH (RBC) [Entitic mass] 26.7 pg Normal 26.0-34.0 [facility] Comment on above: Order Comment: Speci men Type: BLOOD SPECIMENOrdering Facility: [facility] Address: [address] [place] [address] Performed By: #### 5 7021-8 ####[facility] [id number] [place] [address] [place] MCHC (RBC) [Mass/Vol] 31.1 g/dL Normal 30.5-36.0 [facility] Comment on above: Order Comment: Speci men Type: BLOOD SPECIMENOrdering Facility: [facility] Address: [address] [place] [address] Performed By: #### 5 7021-8 ####[facility] [id number] [place] [address] [place] MCV (RBC) [Entitic vol] 85.9 fL Normal 80.0-100.0 [facility] Comment on above: Order Comment: Speci men Type: BLOOD SPECIMENOrdering Facility: [facility] Address: [address] [place] [address] Performed By: #### 5 7021-8 ####[facility] [id number] [place] [address] [place] Monocytes (Bld) [#/Vol] 0.48 10*3/uL Normal <0.87 [facility] Comment on above: Order Comment: Speci men Type: BLOOD SPECIMENOrdering Facility: [facility] Address: [address] [place] [address] Performed By: #### 5 7021-8 ####[facility] [id number] [place] [address] [place] Monocytes/100 WBC (Bld) 6.8 % Normal [facility] Comment on above: Order Comment: Speci men Type: BLOOD SPECIMENOrdering Facility: [facility] Address: [address] [place] [address] Performed By: #### 5 7021-8 ####[facility] [id number] [place] [address] [place] Neutrophils (Bld) [#/Vol] 4.96 10*3/uL Normal 1.45-7.50 [facility] Comment on above: Order Comment: Speci men Type: BLOOD SPECIMENOrdering Facility: [facility] Address: [address] [place] [address] Performed By: #### 5 7021-8 ####[facility] [id number] [place] [id number] [place] Neutrophils/100 WBC (Bld) 70.7 % Normal [facility] Comment on above: Order Comment: Speci men Type: BLOOD SPECIMENOrdering Facility: [facility] Address: [address] [place] [address] Performed By: #### 5 7021-8 ####[facility] [id number] [place] [address] [place] Nucleated RBC (Bld) [#/Vol] 10*3/uL Normal <0.01 [facility] Comment on above: Order Comment: Speci men Type: BLOOD SPECIMENOrdering Facility: [facility] Address: [address] [place] [address] Performed By: #### 5 7021-8 ####[facility] [id number] [place] [address] [place] Nucleated RBC/100 WBC (Bld) [Ratio] 0.0 /100 WBC Normal [facility] Comment on above: Order Comment: Speci men Type: BLOOD SPECIMENOrdering Facility: [facility] Address: [address] [place] [address] Performed By: #### 5 7021-8 ####[facility] [id number] [place] [address] [place] Platelet mean volume (Bld) [Entitic vol] 9.7 fL Normal 9.0-12.7 [facility] Comment on above: Order Comment: Speci men Type: BLOOD SPECIMENOrdering Facility: [facility] Address: [address] [place] [address] Performed By: #### 5 7021-8 ####[facility] [id number] [place] [address] [place] Platelets (Bld) [#/Vol] 265 10*3/uL Normal 150-400 [facility] Comment on above: Order Comment: Speci men Type: BLOOD SPECIMENOrdering Facility: [facility] Address: [address] [place] [address] Performed By: #### 5 7021-8 ####[facility] [id number] [address], [facility] [place] RBC (Bld) [#/Vol] 2.55 10*6/uL Low 3.90-5.20 [facility] Comment on above: Order Comment: Speci men Type: BLOOD SPECIMENOrdering Facility: [facility] Address: [address] [place] [address] Performed By: #### 5 7021-8 ####[facility] [id number] [place] [address] [place] WBC (Bld) [#/Vol] 7.02 10*3/uL Normal 3.70-11.00 [facility] Comment on above: Order Comment: Speci men Type: BLOOD SPECIMENOrdering Facility: [facility] Address: [address] [place] [address] Performed By: #### 5 7021-8 ####[facility] [id number] [place] [address] [place] CBC panel Auto (Bld)on 12-18 Erythrocyte distribution width (RBC) [Ratio] 20.3 % High 11.5-15.0 [facility] Comment on above: Order Comment: Speci men Type: BLOOD SPECIMENOrdering Facility: [facility] Address: [address] [place] [address] Performed By: #### 5 8410-2 ####[facility] [id number] [place] [address] [place] Hematocrit (Bld) [Volume fraction] 26.1 % Low 36.0-46.0 [facility] Comment on above: Order Comment: Speci men Type: BLOOD SPECIMENOrdering Facility: [facility] Address: [address] [place] [address] Performed By: #### 5 8410-2 ####[facility] [id number] [place] [address] [place] Hemoglobin (Bld) [Mass/Vol] 7.9 g/dL Low 11.5-15.5 [facility] Comment on above: Order Comment: Speci men Type: BLOOD SPECIMENOrdering Facility: [facility] Address: [address] [place] [address] Performed By: #### 5 8410-2 ####[facility] [id number] [place] [address] [place] [facility] MCH (RBC) [Entitic mass] 27.0 pg Normal 26.0-34.0 [facility] Comment on above: Order Comment: Speci men Type: BLOOD SPECIMENOrdering Facility: [facility] Address: [address] [place] [address] Performed By: #### 5 8410-2 ####[facility] [id number] [place] [address] [place] MCHC (RBC) [Mass/Vol] 30.3 g/dL Low 30.5-36.0 [facility] Comment on above: Order Comment: Speci men Type: BLOOD SPECIMENOrdering Facility: [facility] Address: [address] [place] [address] Performed By: #### 5 8410-2 ####[facility] [id number] [place] [address] [place] MCV (RBC) [Entitic vol] 89.1 fL Normal 80.0-100.0 [facility] Comment on above: Order Comment: Speci men Type: BLOOD SPECIMENOrdering Facility: [facility] Address: [address] [place] [address] Performed By: #### 5 8410-2 ####[facility] [id number] [place] [address] [place] Nucleated RBC (Bld) [#/Vol] 10*3/uL Normal <0.01 [facility] Comment on above: Order Comment: Speci men Type: BLOOD SPECIMENOrdering Facility: [facility] Address: [address] [place] [address] Performed By: #### 5 8410-2 ####[facility] [id number] [address] [place] [address] [place] Platelet mean volume (Bld) [Entitic vol] 9.8 fL Normal 9.0-12.7 [facility] Comment on above: Order Comment: Speci men Type: BLOOD SPECIMENOrdering Facility: [facility] Address: [address] [place] [address] Performed By: #### 5 8410-2 ####[facility] [id number] [place] [address] [place] Platelets (Bld) [#/Vol] 287 10*3/uL Normal 150-400 [facility] Comment on above: Order Comment: Speci men Type: BLOOD SPECIMENOrdering Facility: [facility] Address: [address] [place] [address] Performed By: #### 5 8410-2 ####[facility] [id number] [address], [place] [address] [place] RBC (Bld) [#/Vol] 2.93 10*6/uL Low 3.90-5.20 [facility] Comment on above: Order Comment: Speci men Type: BLOOD SPECIMENOrdering Facility: [facility] Address: [address] [place] [address] Performed By: #### 5 8410-2 ####[facility] [id number] [place] [address] [place] WBC (Bld) [#/Vol] 8.64 10*3/uL Normal 3.70-11.00 [facility] Comment on above: Order Comment: Speci men Type: BLOOD SPECIMENOrdering Facility: [facility] Address: [address] [place] [address] Performed By: #### 5 8410-2 ####[facility] [id number] [address], [facility]95 [place] Erythrocyte distribution width (RBC) [Ratio] 21.2 % High 11.5-15.0 [facility] Comment on above: Order Comment: Speci men Type: BLOOD SPECIMENOrdering Facility: [facility] Address: [address] [place] [address] Performed By: #### 5 8410-2 ####[facility] [id number] [place] [address] [place] Hematocrit (Bld) [Volume fraction] 22.2 % Low 36.0-46.0 [facility] Comment on above: Order Comment: Speci men Type: BLOOD SPECIMENOrdering Facility: [facility] Address: [address] [place] [address] Performed By: #### 5 8410-2 ####[facility] [id number] [place] [address] [place] Hemoglobin (Bld) [Mass/Vol] 6.9 g/dL Low 11.5-15.5 [facility] Comment on above: Order Comment: Speci men Type: BLOOD SPECIMENOrdering Facility: [facility] Address: [address] [place] [address] Performed By: #### 5 8410-2 ####[facility] [id number] [place] [address] [place] MCH (RBC) [Entitic mass] 27.0 pg Normal 26.0-34.0 [facility] Comment on above: Order Comment: Speci men Type: BLOOD SPECIMENOrdering Facility: [facility] Address: [address] [place] [address] Performed By: #### 5 8410-2 ####[facility] [id number] [place] [address] [place] MCHC (RBC) [Mass/Vol] 31.1 g/dL Normal 30.5-36.0 [facility] Comment on above: Order Comment: Speci men Type: BLOOD SPECIMENOrdering Facility: [facility] Address: [address] [place] [address] Performed By: #### 5 8410-2 ####[facility] [id number] [place] [address] [place] MCV (RBC) [Entitic vol] 86.7 fL Normal 80.0-100.0 [facility] Comment on above: Order Comment: Speci men Type: BLOOD SPECIMENOrdering Facility: [facility] Address: [address] [place] [address] Performed By: #### 5 8410-2 ####[facility] [id number] [place] [address] [place] Nucleated RBC (Bld) [#/Vol] 10*3/uL Normal <0.01 [facility] Comment on above: Order Comment: Speci men Type: BLOOD SPECIMENOrdering Facility: [facility] Address: [address] [place] [address] Performed By: #### 5 8410-2 ####[facility] [id number] [place] [address] [place] Platelet mean volume (Bld) [Entitic vol] 9.5 fL Normal 9.0-12.7 [facility] Comment on above: Order Comment: Speci men Type: BLOOD SPECIMENOrdering Facility: [facility] Address: [address] [place] [address] Performed By: #### 5 8410-2 ####[facility] [id number] [place] [address] [place] Platelets (Bld) [#/Vol] 284 10*3/uL Normal 150-400 [facility] Comment on above: Order Comment: Speci men Type: BLOOD SPECIMENOrdering Facility: [facility] Address: [address] [place] [address] Performed By: #### 5 8410-2 ####[facility] [id number] [place] [address] [place] RBC (Bld) [#/Vol] 2.56 10*6/uL Low 3.90-5.20 [facility] Comment on above: Order Comment: Speci men Type: BLOOD SPECIMENOrdering Facility: [facility] Address: [address] [place] [address] Performed By: #### 5 8410-2 ####[facility] [id number] [place] [address] [place] WBC (Bld) [#/Vol] 7.45 10*3/uL Normal 3.70-11.00 [facility] Comment on above: Order Comment: Speci men Type: BLOOD SPECIMENOrdering Facility: [facility] Address: [address] [place] [address] Performed By: #### 5 8410-2 ####[facility] [id number] [place] [address] [place] Comprehensive metabolic 2000 panelon 12-18-2024 Albumin [Mass/Vol] 2.3 g/dL Low 3.9-4.9 [facility] Comment on above: Order Comment: Speci men Type: BLOOD SPECIMENOrdering Facility: [facility] Address: [address] [place] [address] Performed By: #### 2 4323-8, 51954-2, 2777-1, 257-8 ####[facility] [id number] [place] [address] [place] ALP [Catalytic activity/Vol] 71 U/L Normal 34-123 [facility] Comment on above: Order Comment: Speci men Type: BLOOD SPECIMENOrdering Facility: [facility] Address: [address] [place] [address] Performed By: #### 2 4323-8, 63406-8, 2777-1, 2571-8 ####[facility] [id number] [place] [address] [place] ALT [Catalytic activity/Vol] 9 U/L Normal 7-38 [facility] Comment on above: Order Comment: Speci men Type: BLOOD SPECIMENOrdering Facility: [facility] Address: [address] [place] [address] Performed By: #### 2 4323-8, 95697-1, 277-1, 2570-8 ####[facility] [id number] [place] [address] [place] Anion gap [Moles/Vol] 10 mmol/L Normal 8-15 [facility] Comment on above: Order Comment: Speci men Type: BLOOD SPECIMENOrdering Facility: [facility] Address: [address] [place] [address] Performed By: #### 2 4323-8, 11096-2, 2776-1, 2570-8 ####[facility] [id number] [place] [address] [place] AST [Catalytic activity/Vol] 9 U/L Low 13-35 [facility] Comment on above: Order Comment: Speci men Type: BLOOD SPECIMENOrdering Facility: [facility] Address: [address] [place] [address] Performed By: #### 2 4323-8, 51107-1, 277-1, 257-8 ####[facility] [id number] [place] [id number] [place] Bilirubin [Mass/Vol] 0.2 mg/dL Normal 0.2-1.3 [facility] Comment on above: Order Comment: Speci men Type: BLOOD SPECIMENOrdering Facility: [facility] Address: [address] [place] [address] Performed By: #### 2 4323-8, 82523-9, 277-1, 257-8 ####[facility] [id number] [place] [id number] [place] Calcium [Mass/Vol] 8.0 mg/dL Low 8.5-10.2 [facility] Comment on above: Order Comment: Speci men Type: BLOOD SPECIMENOrdering Facility: [facility] Address: [address] [place] [address] Performed By: #### 2 4323-8, 83521-2, 277-1, 2570-8 ####[facility] [id number] [place] [address] [place] Chloride [Moles/Vol] 106 mmol/L Normal 98-107 [facility] Comment on above: Order Comment: Speci men Type: BLOOD SPECIMENOrdering Facility: [facility] Address: [address] [place] [address] Performed By: #### 2 4323-8, 61411-2, 277-1, 8 ####[facility] [id number] [place] [address] [place] CO2 [Moles/Vol] 22 mmol/L Normal 22-30 [facility] Comment on above: Order Comment: Speci men Type: BLOOD SPECIMENOrdering Facility: [facility] Address: [address] [place] [address] Performed By: #### 2 4323-8, 56328-5, 277-1, 257-8 ####[facility] [id number] [place] [id number] [place] Creatinine [Mass/Vol] 0.53 mg/dL Low 0.58-0.96 [facility] Comment on above: Order Comment: Speci men Type: BLOOD SPECIMENOrdering Facility: [facility] Address: [address] [place] [address] Performed By: #### 2 4323-8, 86762-9, 277-1, 257-8 ####[facility] LABCLIA [id number] [id number] Creatinine and Glomerular filtration rate.predicted panel (S/P/Bld) 119 mL/min/1.73m??? Normal >=60 [facility] Comment on above: Order Comment: Dora finch Type: BLOOD SPECIMENOrdering Facility: [facility] Address: [address] [place] [address] Result Comment: Zeny mated Glomerular Filtration Rate [...] actual GFR. Performed By: #### 2 4323-8, 11964-5, 2776-, 2571-01 ####[facility] LABCLIA [id number] [address] [place] Glucose [Mass/Vol] 115 mg/dL High 74-99 [facility] Comment on above: Order Comment: Dora finch Type: BLOOD SPECIMENOrdering Facility: [facility] Address: [address] [place] [address] Result Comment: The [place] Diabetes Association (ADA) provides guidance for cutoff [...] Standards of Medical Care in Diabetes 2016, [place] Diabetes [employer]. Diabetes Care. 2016.39(Suppl 1). Performed By: #### 2 4323-8, 98985-9, 2776-, 2570-8 ####[facility] LABCLIA [id number] [place] [id number] [place] Potassium [Moles/Vol] 3.3 mmol/L Low 3.7-5.1 [facility] Comment on above: Order Comment: Speci men Type: BLOOD SPECIMENOrdering Facility: [facility] Address: [address] [place] [address] Performed By: #### 2 4323-8, 39224-5, 2776-1, 8 ####[facility] LABCLIA [id number] [facility] [place] [id number] [place] Protein [Mass/Vol] 5.1 g/dL Low 6.3-8.0 [facility] Comment on above: Order Comment: Speci men Type: BLOOD SPECIMENOrdering Facility: [facility] Address: [address] [place] [address] Performed By: #### 2 4323-8, 70293-7, 2776-06, 8 ####[facility] LABCLIA [id number] [place] [id number] [place] Sodium [Moles/Vol] 138 mmol/L Normal 136-144 [facility] Comment on above: Order Comment: Speci men Type: BLOOD SPECIMENOrdering Facility: [facility] Address: [address] [place] [address] Performed By: #### 2 4323-8, 14104-1, 2776-06, 8 ####[facility]CL[facility] [id number] [place] [id number] [place] Urea nitrogen [Mass/Vol] 8 mg/dL Normal 7-21 [facility] Comment on above: Order Comment: Speci men Type: BLOOD SPECIMENOrdering Facility: [facility] Address: [address] [place] [address] Performed By: #### 2 4323-8, 84790-7, 2776-1, 2570-8 ####[facility]CL[facility] [id number] [facility] [id number] [place] [address] [place] Magnesium SerPl-mCncon 12-18 Magnesium [Mass/Vol] 1.8 mg/dL Normal 1.7-2.3 [facility] Comment on above: Order Comment: Speci men Type: BLOOD SPECIMENOrdering Facility: [facility] Address: [address] [place] [address] Performed By: #### 2 4323-8, 75021-6, 2777-1, 257-8 ####[facility]CL[facility] [id number] [place] [address] [place] Phosphate SerPl-mCncon 12-18 Phosphate [Mass/Vol] 3.8 mg/dL Normal 2.7-4.8 [facility] Comment on above: Order Comment: Speci men Type: BLOOD SPECIMENOrdering Facility: [facility] Address: [address] [place] [address] Performed By: #### 2 4323-8, 95071-6, 2777-1, 257-8 ####[facility]CL[facility] [id number] [place] [address] [place] TYPE + SCREENon 12-18-2024 ABO O Normal [facility] Comment on above: Order Comment: Speci men Type: BLOOD SPECIMENOrdering Facility: [facility] Address: [address] [place] [address] Performed By: #### T SCR ####[facility] BLOOD BANKCLIA [id number] [place] [address] [place] Rh Nom (Bld) Positive Normal [facility] Comment on above: Order Comment: Speci men Type: BLOOD SPECIMENOrdering Facility: [facility] Address: [address] [place] [address] Performed By: #### T SCR ####[facility] BLOOD BANKCLIA [id number] [place] [address] [place] TYPE AND SCREEN EXPIRATION 12/21/2024 23:59 Normal [facility] Comment on above: Order Comment: Speci men Type: BLOOD SPECIMENOrdering Facility: [facility] Address: [address] [place] [address] Performed By: #### T SCR ####CC [facility] BLOOD [facility] [id number] [place] [address] [place] Trigl SerPl-mCncon Triglyceride [Mass/Vol] 81 mg/dL Normal <150 [facility] Comment on above: Order Comment: Speci men Type: BLOOD SPECIMENOrdering Facility: [facility] Address: [address] [place] [address] Result Comment: <150 mg/dL, Normal 150-199 mg/dL, Borderline high 200-499 mg/dL, High>499 mg/dL, Very highReference:1. National Cholesterol Education Program ATP III Guideline At-A-Glance Quick Desk Reference: National Heart, Lung, and Blood [place]. National Institutes of Health. 2001: NIH Publication No. 01-3305. Performed By: #### 2 4323-8, 12922-7, 2777-1, 2571-8 ####[facility] [id number] [place] [id number] [place] Triglyceride [Mass/Vol]on FASTING TIME 12 hrs Normal [facility] Comment on above: Order Comment: Speci men Type: BLOOD SPECIMENOrdering Facility: [facility] Address: [address] [place] [address] Performed By: #### 2 4323-8, 60901-1, 2777-1, 2571-8 ####[facility] [id number] [place] [id number] [place] Basic metabolic 2000 panelon 12-17-2024 Anion gap [Moles/Vol] 9 mmol/L Normal 8-15 [facility] Comment on above: Order Comment: Speci men Type: BLOOD SPECIMENOrdering Facility: [facility] Address: [address] [place] [address] Performed By: #### 2 4321-2 ####[facility] LABCLIA [id number] [place] [address] [place] Calcium [Mass/Vol] 8.0 mg/dL Low 8.5-10.2 [facility] Comment on above: Order Comment: Speci men Type: BLOOD SPECIMENOrdering Facility: [facility] Address: [address] [place] [address] Performed By: #### 2 4321-2 ####[facility] LABCLIA [id number] [facility] [place] [place] [address] [place] Chloride [Moles/Vol] 104 mmol/L Normal 98-107 [facility] Comment on above: Order Comment: Speci men Type: BLOOD SPECIMENOrdering Facility: [facility] Address: [address] [place] [address] Performed By: #### 2 4321-2 ####[facility] LABCLIA [id number] [place] [address] [place] CO2 [Moles/Vol] 23 mmol/L Normal 22-30 [facility] Comment on above: Order Comment: Speci men Type: BLOOD SPECIMENOrdering Facility: [facility] Address: [address] [place] [address] Performed By: #### 2 4321-2 ####[facility]CLIA [id number] [place] [id number] [place] Creatinine [Mass/Vol] 0.54 mg/dL Low 0.58-0.96 [facility] Comment on above: Order Comment: Speci men Type: BLOOD SPECIMENOrdering Facility: [facility] Address: [address] [place] [address] Performed By: #### 2 4321-2 ####[facility] LABCLIA [id number] [place] [id number] [place] Creatinine and Glomerular filtration rate.predicted panel (S/P/Bld) 119 mL/min/1.73m??? Normal >=60 [facility] Comment on above: Order Comment: Dora finch Type: BLOOD SPECIMENOrdering Facility: [facility] Address: [address] [place] [address] Result Comment: Zeny mated Glomerular Filtration Rate [...] actual GFR. Performed By: #### 2 4321-2 ####[facility]BR[facility] [id number] [place] [address] [place] Glucose [Mass/Vol] 152 mg/dL High 74-99 [facility] Comment on above: Order Comment: oDra finch Type: BLOOD SPECIMENOrdering Facility: [facility] Address: [address] [place] [address] Result Comment: The [place] Diabetes Association (ADA) provides guidance for cutoff [...] Standards of Medical Care in Diabetes 2016, [place] Diabetes Association. Diabetes Care. 2016.39(Suppl 1). Performed By: #### 2 4321-2 ####[facility] [id number] [place] [id number] [place] Potassium [Moles/Vol] 3.7 mmol/L Normal 3.7-5.1 [facility] Comment on above: Order Comment: Speci men Type: BLOOD SPECIMENOrdering Facility: [facility] Address: [address] [place] [address] Performed By: #### 2 4321-2 ####[facility] LABCLIA [id number] [address] [address] [place] Sodium [Moles/Vol] 136 mmol/L Normal 136-144 [facility] Comment on above: Order Comment: Speci men Type: BLOOD SPECIMENOrdering Facility: [facility] Address: [address] [place] [address] Performed By: #### 2 4321-2 ####[facility] LABCLIA [id number] [place] [address] [place] Urea nitrogen [Mass/Vol] 12 mg/dL Normal 7-21 [facility] Comment on above: Order Comment: Speci men Type: BLOOD SPECIMENOrdering Facility: [facility] Address: [address] [place] [address] Performed By: #### 2 4321-2 ####[facility] LABIA [id number] [place] [id number] [place] CASE MANAGEMon 12-17-2024 CASE MANAGEM Normal [facility] CBC W Auto Differential pane l (Bld)on 12-17-2024 Basophils (Bld) [#/Vol] 10*3/uL Normal <0.11 [facility] Comment on above: Order Comment: Speci men Type: BLOOD SPECIMENOrdering Facility: [facility] Address: [address] [place] [address] Performed By: #### 5 7021-8 ####[facility]CLIA [id number] [place] [id number] [place] Basophils/100 WBC (Bld) 0.2 % Normal [facility] Comment on above: Order Comment: Speci men Type: BLOOD SPECIMENOrdering Facility: [facility] Address: [address] [place] [address] Performed By: #### 5 7021-8 ####[facility] LABCLIA [id number] [address], [place] [address] [place] Differential cell count method Nom (Bld) Auto Normal [facility] Comment on above: Order Comment: Speci men Type: BLOOD SPECIMENOrdering Facility: [facility] Address: [address] [place] [address] Performed By: #### 5 7021-8 ####[facility] LABCLIA [id number] [address], [place] [address] [place] Eosinophils (Bld) [#/Vol] 0.29 10*3/uL Normal <0.46 [facility] Comment on above: Order Comment: Speci men Type: BLOOD SPECIMENOrdering Facility: [facility] Address: [address] [place] [address] Performed By: #### 5 7021-8 ####[facility] LABCLIA [id number] [place] [address] [place] Eosinophils/100 WBC (Bld) 3.3 % Normal [facility] Comment on above: Order Comment: Speci men Type: BLOOD SPECIMENOrdering Facility: [facility] Address: [address] [place] [address] Performed By: #### 5 7021-8 ####[facility] LABCLIA [id number] [place] [address] [place] Erythrocyte distribution width (RBC) [Ratio] 21.2 % High 11.5-15.0 [facility] Comment on above: Order Comment: Speci men Type: BLOOD SPECIMENOrdering Facility: [facility] Address: [address] [place] [address] Performed By: #### 5 7021-8 ####[facility] LABCLIA [id number] [place] [id number] [place] Hematocrit (Bld) [Volume fraction] 24.6 % Low 36.0-46.0 [facility] Comment on above: Order Comment: Speci men Type: BLOOD SPECIMENOrdering Facility: [facility] Address: [address] [place] [address] Performed By: #### 5 7021-8 ####[facility] LABCLIA [id number] [place] [address] [place] Hemoglobin (Bld) [Mass/Vol] 7.6 g/dL Low 11.5-15.5 [facility] Comment on above: Order Comment: Speci men Type: BLOOD SPECIMENOrdering Facility: [facility] Address: [address] [place] [address] Performed By: #### 5 7021-8 ####[facility] LABCLIA [id number] [place] [address] [place] Immature granulocytes (Bld) [#/Vol] 0.04 10*3/uL Normal <0.10 [facility] Comment on above: Order Comment: Speci men Type: BLOOD SPECIMENOrdering Facility: [facility] Address: [address] [place] [address] Performed By: #### 5 7021-8 ####[facility] LABIA [id number] [place] [address] [place] Immature granulocytes/100 WBC (Bld) 0.5 % Normal [facility] Comment on above: Order Comment: Speci men Type: BLOOD SPECIMENOrdering Facility: [facility] Address: [address] [place] [address] Performed By: #### 5 7021-8 ####[facility] LABCLIA [id number] [place] [address] [place] Lymphocytes (Bld) [#/Vol] 1.04 10*3/uL Normal 1.00-4.00 [facility] Comment on above: Order Comment: Speci men Type: BLOOD SPECIMENOrdering Facility: [facility] Address: [address] [place] [address] Performed By: #### 5 7021-8 ####[facility] LABIA [id number] [place] [address] [place] Lymphocytes/100 WBC (Bld) 11.7 % Normal [facility] Comment on above: Order Comment: Speci men Type: BLOOD SPECIMENOrdering Facility: [facility] Address: [address] [place] [address] Performed By: #### 5 7021-8 ####[facility] LABIA [id number] [place] [address] [place] MCH (RBC) [Entitic mass] 26.5 pg Normal 26.0-34.0 [facility] Comment on above: Order Comment: Speci men Type: BLOOD SPECIMENOrdering Facility: [facility] Address: [address] [place] [address] Performed By: #### 5 7021-8 ####[facility] LABIA [id number] [place] [address] [place] MCHC (RBC) [Mass/Vol] 30.9 g/dL Normal 30.5-36.0 [facility] Comment on above: Order Comment: Speci men Type: BLOOD SPECIMENOrdering Facility: [facility] Address: [address] [place] [address] Performed By: #### 5 7021-8 ####[facility] LABIA [id number] [place] [address] [place] MCV (RBC) [Entitic vol] 85.7 fL Normal 80.0-100.0 [facility] Comment on above: Order Comment: Speci men Type: BLOOD SPECIMENOrdering Facility: [facility] Address: [address] [place] [address] Performed By: #### 5 7021-8 ####[facility] LABIA [id number] [place] [address] [place] Monocytes (Bld) [#/Vol] 0.61 10*3/uL Normal <0.87 [facility] Comment on above: Order Comment: Speci men Type: BLOOD SPECIMENOrdering Facility: [facility] Address: [address] [place] [address] Performed By: #### 5 7021-8 ####[facility] LABCLIA [id number] [facility] [place] [address] [place] Monocytes/100 WBC (Bld) 6.9 % Normal [facility] Comment on above: Order Comment: Speci men Type: BLOOD SPECIMENOrdering Facility: [facility] Address: [address] [place] [address] Performed By: #### 5 7021-8 ####[facility] LABCLIA [id number] [facility] [place] [address] [place] Neutrophils (Bld) [#/Vol] 6.88 10*3/uL Normal 1.45-7.50 [facility] Comment on above: Order Comment: Speci men Type: BLOOD SPECIMENOrdering Facility: [facility] Address: [address] [place] [address] Performed By: #### 5 7021-8 ####[facility] LABCLIA [id number] [place] [address] [place] Neutrophils/100 WBC (Bld) 77.4 % Normal [facility] Comment on above: Order Comment: Speci men Type: BLOOD SPECIMENOrdering Facility: [facility] Address: [address] [place] [address] Performed By: #### 5 7021-8 ####[facility] LABCLIA [id number] [place] [address] [place] Nucleated RBC (Bld) [#/Vol] 10*3/uL Normal <0.01 [facility] Comment on above: Order Comment: Speci men Type: BLOOD SPECIMENOrdering Facility: [facility] Address: [address] [place] [address] Performed By: #### 5 7021-8 ####[facility] LABCLIA [id number] [address] [place] [address] [place] Nucleated RBC/100 WBC (Bld) [Ratio] 0.0 /100 WBC Normal [facility] Comment on above: Order Comment: Speci men Type: BLOOD SPECIMENOrdering Facility: [facility] Address: [address] [place] [address] Performed By: #### 5 7021-8 ####[facility] LABCLIA [id number] [address] [place] [address] [place] Platelet mean volume (Bld) [Entitic vol] 9.5 fL Normal 9.0-12.7 [facility] Comment on above: Order Comment: Speci men Type: BLOOD SPECIMENOrdering Facility: [facility] Address: [address] [place] [address] Performed By: #### 5 7021-8 ####[facility] LABIA [id number] [address], [place] [address] [place] Platelets (Bld) [#/Vol] 245 10*3/uL Normal 150-400 [facility] Comment on above: Order Comment: Speci men Type: BLOOD SPECIMENOrdering Facility: [facility] Address: [address] [place] [address] Performed By: #### 5 7021-8 ####[facility] LABCLIA [id number] [address] [place] [address] [place] RBC (Bld) [#/Vol] 2.87 10*6/uL Low 3.90-5.20 [facility] Comment on above: Order Comment: Speci men Type: BLOOD SPECIMENOrdering Facility: [facility] Address: [address] [place] [address] Performed By: #### 5 7021-8 ####[facility] LABIA [id number] [address], [facility]95 [place] WBC (Bld) [#/Vol] 8.88 10*3/uL Normal 3.70-11.00 [facility] Comment on above: Order Comment: Speci men Type: BLOOD SPECIMENOrdering Facility: [facility] Address: [address] [place], [place] [address] Performed By: #### 5 7021-8 ####[facility] LABCLIA [id number] [place] [id number] [place] CONSULT PROGon 12-17-2024 CONSULT PROG Normal [facility] CONSULT PROG Normal [facility] CRP SerPl-mCncon 12-17-2024 CRP [Mass/Vol] 10.3 mg/dL High <0.9 [facility] Comment on above: Order Comment: Speci men Type: BLOOD SPECIMENOrdering Facility: [facility] Address: [address] [place] [address] Performed By: #### 1 988-5 ####[facility] LABCLIA [id number] [place] [id number] [place] Comprehensive metabolic 2000 panelon 12-17-2024 Albumin [Mass/Vol] 2.6 g/dL Low 3.9-4.9 [facility] Comment on above: Order Comment: Speci men Type: BLOOD SPECIMENOrdering Facility: [facility] Address: [address] [place] [address] Performed By: #### 2 4323-8, 74417-6, 2777-1 ####[facility] LABCLIA [id number] [place] [id number] [place] ALP [Catalytic activity/Vol] 80 U/L Normal 34-123 [facility] Comment on above: Order Comment: Speci men Type: BLOOD SPECIMENOrdering Facility: [facility] Address: [address] [place] [address] Performed By: #### 2 4323-8, , 2777-1 ####[facility] LABCLIA [id number] [address] [place] [address] [place] ALT [Catalytic activity/Vol] 14 U/L Normal 7-38 [facility] Comment on above: Order Comment: Speci men Type: BLOOD SPECIMENOrdering Facility: [facility] Address: [address] [place] [address] Performed By: #### 2 4323-8, 14637-9, 2776-06 ####[facility] LABCLIA [id number] [address] [place] [address] [place] Anion gap [Moles/Vol] 12 mmol/L Normal 8-15 [facility] Comment on above: Order Comment: Speci men Type: BLOOD SPECIMENOrdering Facility: [facility] Address: [address] [place] [address] Performed By: #### 2 4323-8, , 2776-06 ####[facility] LABCLIA [id number] [place] [id number] [place] AST [Catalytic activity/Vol] 7 U/L Low 13-35 [facility] Comment on above: Order Comment: Speci men Type: BLOOD SPECIMENOrdering Facility: [facility] Address: [address] [place] [address] Performed By: #### 2 4323-8, , 2776-06 ####[facility] LABCLIA [id number] [address], [facility]95 [place] Bilirubin [Mass/Vol] 0.3 mg/dL Normal 0.2-1.3 [facility] Comment on above: Order Comment: Speci men Type: BLOOD SPECIMENOrdering Facility: [facility] Address: [address] [place] [address] Performed By: #### 2 4323-8, , 2776-06 ####[facility] LABCLIA [id number] [address] [place] [address] [place] Calcium [Mass/Vol] 8.5 mg/dL Normal 8.5-10.2 [facility] Comment on above: Order Comment: Speci men Type: BLOOD SPECIMENOrdering Facility: [facility] Address: [address] [place], [place] [address] Performed By: #### 2 4323-8, , 2776-06 ####[facility] LABCLIA [id number] [facility] [address] [place] [address] [place] Chloride [Moles/Vol] 102 mmol/L Normal 98-107 [facility] Comment on above: Order Comment: Speci men Type: BLOOD SPECIMENOrdering Facility: [facility] Address: [address] [place] [address] Performed By: #### 2 4323-8, , 2776-06 ####[facility] LABCLIA [id number] [facility] [place] [id number] [place] CO2 [Moles/Vol] 23 mmol/L Normal 22-30 [facility] Comment on above: Order Comment: Speci men Type: BLOOD SPECIMENOrdering Facility: [facility] Address: [address] [place] [address] Performed By: #### 2 4323-8, , 2776-06 ####[facility] LABCLIA [id number] [facility] [address], [facility]95 [place] Creatinine [Mass/Vol] 0.58 mg/dL Normal 0.58-0.96 [facility] Comment on above: Order Comment: Speci men Type: BLOOD SPECIMENOrdering Facility: [facility] Address: [address] [place], [place] [address] Performed By: #### 2 4323-8, , 2776-06 ####[facility] LABCLIA [id number] [facility] [address] [place] [address] [place] Creatinine and Glomerular filtration rate.predicted panel (S/P/Bld) 117 mL/min/1.73m??? Normal >=60 [facility] Comment on above: Order Comment: Dora finch Type: BLOOD SPECIMENOrdering Facility: [facility] Address: [address] [place] [address] Result Comment: Zeny mated Glomerular Filtration Rate [...] actual GFR. Performed By: #### 2 4323-8, 25778-0, 2776- ####[facility] [id number] [place] [id number] [place] Glucose [Mass/Vol] 131 mg/dL High 74-99 [facility] Comment on above: Order Comment: Dora finch Type: BLOOD SPECIMENOrdering Facility: [facility] Address: [address] [place] [address] Result Comment: The [place] [employer] (ADA) provides guidance for cutoff [...] Standards of Medical Care in Diabetes 2016, [place] Diabetes Association. Diabetes Care. 2016.39(Suppl 1). Performed By: #### 2 4323-8, 75373-0, 2776- ####[facility] [id number] [address] [address] [place] Potassium [Moles/Vol] 2.9 mmol/L Low 3.7-5.1 [facility] Comment on above: Order Comment: Speci men Type: BLOOD SPECIMENOrdering Facility: [facility] Address: [address] [place], [place] [address] Performed By: #### 2 4323-8, , 2776-06 ####[facility] [id number] [address] [address] [place] Protein [Mass/Vol] 5.5 g/dL Low 6.3-8.0 [facility] Comment on above: Order Comment: Speci men Type: BLOOD SPECIMENOrdering Facility: [facility] Address: [address] [place], [place] [address] Performed By: #### 2 4323-8, , 2776-06 ####[facility] [id number] [address] [address] [place] Sodium [Moles/Vol] 137 mmol/L Normal 136-144 [facility] Comment on above: Order Comment: Speci men Type: BLOOD SPECIMENOrdering Facility: [facility] Address: [address] [place], [place] [address] Performed By: #### 2 4323-8, , 2776-06 ####[facility] [id number] [address] [address] [place] Urea nitrogen [Mass/Vol] 11 mg/dL Normal 7-21 [facility] Comment on above: Order Comment: Speci men Type: BLOOD SPECIMENOrdering Facility: [facility] Address: [address] [place], [place] [address] Performed By: #### 2 4323-8, , 2776-06 ####[facility] [id number] [address] [address] [place] Magnesium SerPl-mCncon 12-17 Magnesium [Mass/Vol] 1.8 mg/dL Normal 1.7-2.3 [facility] Comment on above: Order Comment: Speci men Type: BLOOD SPECIMENOrdering Facility: [facility] Address: [address] [place] [address] Performed By: #### 2 4323-8, 86700-7, 7- ####[facility] [id number] [address] [place] [address] [place] Phosphate SerPl-mCncon 12-17 Phosphate [Mass/Vol] 3.1 mg/dL Normal 2.7-4.8 [facility] Comment on above: Order Comment: Speci men Type: BLOOD SPECIMENOrdering Facility: [facility] Address: [address] [place] [address] Performed By: #### 2 4323-8, , 2776-06 ####[facility] [id number] [address], [place] [address] [place] CBC W Auto Differential pane l (Bld)on 12-16-2024 Basophils (Bld) [#/Vol] 10*3/uL Normal <0.11 [facility] Comment on above: Order Comment: Speci men Type: BLOOD SPECIMENOrdering Facility: [facility] Address: [address] [place] [address] Performed By: #### 5 7021-8 ####[facility] [id number] [address], [facility]95 [place] Basophils/100 WBC (Bld) 0.2 % Normal [facility] Comment on above: Order Comment: Speci men Type: BLOOD SPECIMENOrdering Facility: [facility] Address: [address] [place] [address] Performed By: #### 5 7021-8 ####[facility] [id number] [address], [facility]95 [place] Differential cell count method Nom (Bld) Auto Normal [facility] Comment on above: Order Comment: Speci men Type: BLOOD SPECIMENOrdering Facility: [facility] Address: [address] [place] [address] Performed By: #### 5 7021-8 ####[facility] [id number] [address], [place] [address] [place] Eosinophils (Bld) [#/Vol] 0.32 10*3/uL Normal <0.46 [facility] Comment on above: Order Comment: Speci men Type: BLOOD SPECIMENOrdering Facility: [facility] Address: [address] [place] [address] Performed By: #### 5 7021-8 ####[facility] [id number] [address], [place] [address] [place] Eosinophils/100 WBC (Bld) 3.7 % Normal [facility] Comment on above: Order Comment: Speci men Type: BLOOD SPECIMENOrdering Facility: [facility] Address: [address] [place] [address] Performed By: #### 5 7021-8 ####[facility] [id number] [address], [facility]95 [place] Erythrocyte distribution width (RBC) [Ratio] 21.1 % High 11.5-15.0 [facility] Comment on above: Order Comment: Speci men Type: BLOOD SPECIMENOrdering Facility: [facility] Address: [address] [place] [address] Performed By: #### 5 7021-8 ####[facility] [id number] [address], [facility]95 [place] Hematocrit (Bld) [Volume fraction] 24.0 % Low 36.0-46.0 [facility] Comment on above: Order Comment: Speci men Type: BLOOD SPECIMENOrdering Facility: [facility] Address: [address] [place] [address] Performed By: #### 5 7021-8 ####[facility] [id number] [address], [facility]95 [place] Hemoglobin (Bld) [Mass/Vol] 7.4 g/dL Low 11.5-15.5 [facility] Comment on above: Order Comment: Speci men Type: BLOOD SPECIMENOrdering Facility: [facility] Address: [address] [place] [address] Performed By: #### 5 7021-8 ####[facility] [id number] [place] [address] [place] Immature granulocytes (Bld) [#/Vol] 0.04 10*3/uL Normal <0.10 [facility] Comment on above: Order Comment: Speci men Type: BLOOD SPECIMENOrdering Facility: [facility] Address: [address] [place] [address] Performed By: #### 5 7021-8 ####[facility] [id number] [place] [address] [place] Immature granulocytes/100 WBC (Bld) 0.5 % Normal [facility] Comment on above: Order Comment: Speci men Type: BLOOD SPECIMENOrdering Facility: [facility] Address: [address] [place] [address] Performed By: #### 5 7021-8 ####[facility] [id number] [place] [address] [place] Lymphocytes (Bld) [#/Vol] 1.03 10*3/uL Normal 1.00-4.00 [facility] Comment on above: Order Comment: Speci men Type: BLOOD SPECIMENOrdering Facility: [facility] Address: [address] [place] [address] Performed By: #### 5 7021-8 ####[facility] [id number] [place] [address] [place] Lymphocytes/100 WBC (Bld) 11.9 % Normal [facility] Comment on above: Order Comment: Speci men Type: BLOOD SPECIMENOrdering Facility: [facility] Address: [address] [place] [address] Performed By: #### 5 7021-8 ####[facility] [id number] [place] [address] [place] [facility] MCH (RBC) [Entitic mass] 26.9 pg Normal 26.0-34.0 [facility] Comment on above: Order Comment: Speci men Type: BLOOD SPECIMENOrdering Facility: [facility] Address: [address] [place] [address] Performed By: #### 5 7021-8 ####[facility] [id number] [place] [address] [place] MCHC (RBC) [Mass/Vol] 30.8 g/dL Normal 30.5-36.0 [facility] Comment on above: Order Comment: Speci men Type: BLOOD SPECIMENOrdering Facility: [facility] Address: [address] [place] [address] Performed By: #### 5 7021-8 ####[facility] [id number] [place] [address] [place] MCV (RBC) [Entitic vol] 87.3 fL Normal 80.0-100.0 [facility] Comment on above: Order Comment: Speci men Type: BLOOD SPECIMENOrdering Facility: [facility] Address: [address] [place] [address] Performed By: #### 5 7021-8 ####[facility] [id number] [place] [address] [place] Monocytes (Bld) [#/Vol] 0.59 10*3/uL Normal <0.87 [facility] Comment on above: Order Comment: Speci men Type: BLOOD SPECIMENOrdering Facility: [facility] Address: [address] [place] [address] Performed By: #### 5 7021-8 ####[facility] [id number] [place] [address] [place] Monocytes/100 WBC (Bld) 6.8 % Normal [facility] Comment on above: Order Comment: Speci men Type: BLOOD SPECIMENOrdering Facility: [facility] Address: [address] [place] [address] Performed By: #### 5 7021-8 ####[facility] [id number] [place] [address] [place] Neutrophils (Bld) [#/Vol] 6.65 10*3/uL Normal 1.45-7.50 [facility] Comment on above: Order Comment: Speci men Type: BLOOD SPECIMENOrdering Facility: [facility] Address: [address] [place] [address] Performed By: #### 5 7021-8 ####[facility] [id number] [place] [address] [place] Neutrophils/100 WBC (Bld) 76.9 % Normal [facility] Comment on above: Order Comment: Speci men Type: BLOOD SPECIMENOrdering Facility: [facility] Address: [address] [place] [address] Performed By: #### 5 7021-8 ####[facility] [id number] [place] [address] [place] Nucleated RBC (Bld) [#/Vol] 10*3/uL Normal <0.01 [facility] Comment on above: Order Comment: Speci men Type: BLOOD SPECIMENOrdering Facility: [facility] Address: [address] [place] [address] Performed By: #### 5 7021-8 ####[facility] [id number] [place] [id number] [place] Nucleated RBC/100 WBC (Bld) [Ratio] 0.0 /100 WBC Normal [facility] Comment on above: Order Comment: Speci men Type: BLOOD SPECIMENOrdering Facility: [facility] Address: [address] [place] [address] Performed By: #### 5 7021-8 ####[facility] [id number] [place] [address] [place] Platelet mean volume (Bld) [Entitic vol] 10.0 fL Normal 9.0-12.7 [facility] Comment on above: Order Comment: Speci men Type: BLOOD SPECIMENOrdering Facility: [facility] Address: [address] [place] [address] Performed By: #### 5 7021-8 ####[facility] [id number] [place] [address] [place] Platelets (Bld) [#/Vol] 225 10*3/uL Normal 150-400 [facility] Comment on above: Order Comment: Speci men Type: BLOOD SPECIMENOrdering Facility: [facility] Address: [address] [place] [address] Performed By: #### 5 7021-8 ####[facility] [id number] [place] [address] [place] RBC (Bld) [#/Vol] 2.75 10*6/uL Low 3.90-5.20 [facility] Comment on above: Order Comment: Speci men Type: BLOOD SPECIMENOrdering Facility: [facility] Address: [address] [place] [address] Performed By: #### 5 7021-8 ####[facility] [id number] [place] [address] [place] WBC (Bld) [#/Vol] 8.65 10*3/uL Normal 3.70-11.00 [facility] Comment on above: Order Comment: Speci men Type: BLOOD SPECIMENOrdering Facility: [facility] Address: [address] [place] [address] Performed By: #### 5 7021-8 ####[facility] [id number] [address] [address] [place] Comprehensive metabolic 2000 panelon 12-16-2024 Albumin [Mass/Vol] 2.8 g/dL Low 3.9-4.9 [facility] Comment on above: Order Comment: Speci men Type: BLOOD SPECIMENOrdering Facility: [facility] Address: [address] [place] [address] Performed By: #### 2 4323-8, , 2776- ####[facility] [id number] [place] [id number] [place] ALP [Catalytic activity/Vol] 84 U/L Normal 34-123 [facility] Comment on above: Order Comment: Speci men Type: BLOOD SPECIMENOrdering Facility: [facility] Address: [address] [place] [address] Performed By: #### 2 4323-8, , 2776-06 ####[facility] [id number] [place] [id number] [place] ALT [Catalytic activity/Vol] 16 U/L Normal 7-38 [facility] Comment on above: Order Comment: Speci men Type: BLOOD SPECIMENOrdering Facility: [facility] Address: [address] [place] [address] Performed By: #### 2 4323-8, , 2776-06 ####[facility] [id number] [address] [address] [place] Anion gap [Moles/Vol] 12 mmol/L Normal 8-15 [facility] Comment on above: Order Comment: Speci men Type: BLOOD SPECIMENOrdering Facility: [facility] Address: [address] [place] [address] Performed By: #### 2 4323-8, , 2776- ####[facility] [id number] [address] [place] [address] [place] AST [Catalytic activity/Vol] 11 U/L Low 13-35 [facility] Comment on above: Order Comment: Speci men Type: BLOOD SPECIMENOrdering Facility: [facility] Address: [address] [place] [address] Performed By: #### 2 4323-8, , 2776-06 ####[facility] [id number] [address] [place] [address] [place] Bilirubin [Mass/Vol] 0.3 mg/dL Normal 0.2-1.3 [facility] Comment on above: Order Comment: Speci men Type: BLOOD SPECIMENOrdering Facility: [facility] Address: [address] [place] [address] Performed By: #### 2 4323-8, , 2776-06 ####[facility] [id number] [address], [facility]95 [place] Calcium [Mass/Vol] 8.6 mg/dL Normal 8.5-10.2 [facility] Comment on above: Order Comment: Speci men Type: BLOOD SPECIMENOrdering Facility: [facility] Address: [address] [place] [address] Performed By: #### 2 4323-8, , 2776-06 ####[facility] [id number] [place] [id number] [place] Chloride [Moles/Vol] 101 mmol/L Normal 98-107 [facility] Comment on above: Order Comment: Speci men Type: BLOOD SPECIMENOrdering Facility: [facility] Address: [address] [place] [address] Performed By: #### 2 4323-8, , 2776-06 ####[facility] [id number] [address] [address] [place] CO2 [Moles/Vol] 23 mmol/L Normal 22-30 [facility] Comment on above: Order Comment: Speci men Type: BLOOD SPECIMENOrdering Facility: [facility] Address: [address] [place] [address] Performed By: #### 2 4323-8, 85145-2, 2776-06 ####[facility] [id number] [place] [id number] [place] Creatinine [Mass/Vol] 0.64 mg/dL Normal 0.58-0.96 [facility] Comment on above: Order Comment: Speci men Type: BLOOD SPECIMENOrdering Facility: [facility] Address: [address] [place] [address] Performed By: #### 2 4323-8, , 2776-06 ####[facility] [id number] [place] [address] [place] Creatinine and Glomerular filtration rate.predicted panel (S/P/Bld) 114 mL/min/1.73m??? Normal >=60 [facility] Comment on above: Order Comment: Dora finch Type: BLOOD SPECIMENOrdering Facility: [facility] Address: [address] [place] [address] Result Comment: Zeny mated Glomerular Filtration Rate [...] Performed By: #### 2 4323-8, , 2776-06 ####[facility] [id number] [place] [id number] [place] Glucose [Mass/Vol] 140 mg/dL High 74-99 [facility] Comment on above: Order Comment: Speci men Type: BLOOD SPECIMENOrdering Facility: [facility] Address: [address] [place], [place] [address] Result Comment: The [place] [employer] (ADA) provides guidance for cutoff [...] Standards of Medical Care in Diabetes 2016, [place] [employer]. Diabetes Care. 2016.39(Suppl 1). Performed By: #### 2 4323-8, , 2776-06 ####[facility] [id number] [place] [id number] [place] Potassium [Moles/Vol] 2.8 mmol/L Low 3.7-5.1 [facility] Comment on above: Order Comment: Speci men Type: BLOOD SPECIMENOrdering Facility: [facility] Address: [address] [place], [place] [address] Performed By: #### 2 4323-8, , 2776-06 ####[facility] [id number] [address] [address] [place] Protein [Mass/Vol] 5.7 g/dL Low 6.3-8.0 [facility] Comment on above: Order Comment: Speci men Type: BLOOD SPECIMENOrdering Facility: [facility] Address: [address] [place], [place] [address] Performed By: #### 2 4323-8, , 2776-06 ####[facility] [id number] [address] [address] [place] Sodium [Moles/Vol] 136 mmol/L Normal 136-144 [facility] Comment on above: Order Comment: Speci men Type: BLOOD SPECIMENOrdering Facility: [facility] Address: [address] [place] [address] Performed By: #### 2 4323-8, , 2776-06 ####[facility] [id number] [place] [address] [place] Urea nitrogen [Mass/Vol] 11 mg/dL Normal 7-21 [facility] Comment on above: Order Comment: Speci men Type: BLOOD SPECIMENOrdering Facility: [facility] Address: [address] [place] [address] Performed By: #### 2 4323-8, , 2776-06 ####[facility] [id number] [place] [id number] [place] Magnesium SerPl-mCncon 12-16 Magnesium [Mass/Vol] 1.9 mg/dL Normal 1.7-2.3 [facility] Comment on above: Order Comment: Speci men Type: BLOOD SPECIMENOrdering Facility: [facility] Address: [address] [place] [address] Performed By: #### 2 4323-8, , 2776-06 ####[facility] [id number] [place] [id number] [place] Phosphate SerPl-mCncon 12-16 Phosphate [Mass/Vol] 2.4 mg/dL Low 2.7-4.8 [facility] Comment on above: Order Comment: Speci men Type: BLOOD SPECIMENOrdering Facility: [facility] Address: [address] [place] [address] Performed By: #### 2 4323-8, , 2776-06 ####[facility] [id number] [place] [id number] [place] Vancomycin [place] SerPl-mCncon 12-16-2024 Vancomycin random [Mass/Vol] 11.6 ug/mL Normal 10.0-20.0 [facility] Comment on above: Order Comment: Speci men Type: BLOOD SPECIMENOrdering Facility: [facility] Address: [address] [place] [address] Result Comment: Refe rence ranges and high/low indicator flags are provided as general guidelines only. The treating physician must determine appropriate target levels/dosing based on the specific clinical situation. Performed By: #### 4 091-5 ####[facility] [id number] [place] [address] [place] CBC W Auto Differential pane l (Bld)on 12-15-2024 Basophils (Bld) [#/Vol] 0.03 10*3/uL Normal <0.11 [facility] Comment on above: Order Comment: Speci men Type: BLOOD SPECIMENOrdering Facility: [facility] Address: [address] [place] [address] Performed By: #### 5 7021-8 ####[facility] [id number] [place] [address] [place] Basophils/100 WBC (Bld) 0.3 % Normal [facility] Comment on above: Order Comment: Speci men Type: BLOOD SPECIMENOrdering Facility: [facility] Address: [address] [place] [address] Performed By: #### 5 7021-8 ####[facility] [id number] [place] [address] [place] Differential cell count method Nom (Bld) Auto Normal [facility] Comment on above: Order Comment: Speci men Type: BLOOD SPECIMENOrdering Facility: [facility] Address: [address] [place] [address] Performed By: #### 5 7021-8 ####[facility] [id number] [place] [id number] [place] Eosinophils (Bld) [#/Vol] 0.38 10*3/uL Normal <0.46 [facility] Comment on above: Order Comment: Speci men Type: BLOOD SPECIMENOrdering Facility: [facility] Address: [address] [place] [address] Performed By: #### 5 7021-8 ####[facility] [id number] [facility] [place] [address] [place] Eosinophils/100 WBC (Bld) 3.4 % Normal [facility] Comment on above: Order Comment: Speci men Type: BLOOD SPECIMENOrdering Facility: [facility] Address: [address] [place] [address] Performed By: #### 5 7021-8 ####[facility] [id number] [address], [place] [address] [place] Erythrocyte distribution width (RBC) [Ratio] 21.5 % High 11.5-15.0 [facility] Comment on above: Order Comment: Speci men Type: BLOOD SPECIMENOrdering Facility: [facility] Address: [address] [place] [address] Performed By: #### 5 7021-8 ####[facility] [id number] [place] [address] [place] Hematocrit (Bld) [Volume fraction] 25.3 % Low 36.0-46.0 [facility] Comment on above: Order Comment: Speci men Type: BLOOD SPECIMENOrdering Facility: [facility] Address: [address] [place] [address] Performed By: #### 5 7021-8 ####[facility] [id number] [place] [address] [place] Hemoglobin (Bld) [Mass/Vol] 7.6 g/dL Low 11.5-15.5 [facility] Comment on above: Order Comment: Speci men Type: BLOOD SPECIMENOrdering Facility: [facility] Address: [address] [place] [address] Performed By: #### 5 7021-8 ####[facility] [id number] [place] [address] [place] Immature granulocytes (Bld) [#/Vol] 0.08 10*3/uL Normal <0.10 [facility] Comment on above: Order Comment: Speci men Type: BLOOD SPECIMENOrdering Facility: [facility] Address: [address] [place] [address] Performed By: #### 5 7021-8 ####[facility] [id number] [address] [place] Immature granulocytes/100 WBC (Bld) 0.7 % Normal [facility] Comment on above: Order Comment: Speci men Type: BLOOD SPECIMENOrdering Facility: [facility] Address: [address] [place] [address] Performed By: #### 5 7021-8 ####[facility] [id number] [place] [address] [place] Lymphocytes (Bld) [#/Vol] 1.39 10*3/uL Normal 1.00-4.00 [facility] Comment on above: Order Comment: Speci men Type: BLOOD SPECIMENOrdering Facility: [facility] Address: [address] [place] [address] Performed By: #### 5 7021-8 ####[facility] [id number] [place] [id number] [place] Lymphocytes/100 WBC (Bld) 12.5 % Normal [facility] Comment on above: Order Comment: Speci men Type: BLOOD SPECIMENOrdering Facility: [facility] Address: [address] [place] [address] Performed By: #### 5 7021-8 ####[facility] [id number] [place] [place] [id number] [place] MCH (RBC) [Entitic mass] 26.4 pg Normal 26.0-34.0 [facility] Comment on above: Order Comment: Speci men Type: BLOOD SPECIMENOrdering Facility: [facility] Address: [address] [place] [address] Performed By: #### 5 7021-8 ####[facility] [id number] [place] [address] [place] MCHC (RBC) [Mass/Vol] 30.0 g/dL Low 30.5-36.0 [facility] Comment on above: Order Comment: Speci men Type: BLOOD SPECIMENOrdering Facility: [facility] Address: [address] [place] [address] Performed By: #### 5 7021-8 ####[facility] [id number] [place] [address] [place] MCV (RBC) [Entitic vol] 87.8 fL Normal 80.0-100.0 [facility] Comment on above: Order Comment: Speci men Type: BLOOD SPECIMENOrdering Facility: [facility] Address: [address] [place] [address] Performed By: #### 5 7021-8 ####[facility] [id number] [place] [address] [place] Monocytes (Bld) [#/Vol] 0.82 10*3/uL Normal <0.87 [facility] Comment on above: Order Comment: Speci men Type: BLOOD SPECIMENOrdering Facility: [facility] Address: [address] [place] [address] Performed By: #### 5 7021-8 ####[facility] [id number] [address] [place] Monocytes/100 WBC (Bld) 7.4 % Normal [facility] Comment on above: Order Comment: Speci men Type: BLOOD SPECIMENOrdering Facility: [facility] Address: [address] [place] [address] Performed By: #### 5 7021-8 ####[facility] [id number] [address], [place] [address] [place] Neutrophils (Bld) [#/Vol] 8.45 10*3/uL High 1.45-7.50 [facility] Comment on above: Order Comment: Speci men Type: BLOOD SPECIMENOrdering Facility: [facility] Address: [address] [place] [address] Performed By: #### 5 7021-8 ####[facility] [id number] [address], [place] [address] [place] Neutrophils/100 WBC (Bld) 75.7 % Normal [facility] Comment on above: Order Comment: Speci men Type: BLOOD SPECIMENOrdering Facility: [facility] Address: [address] [place] [address] Performed By: #### 5 7021-8 ####[facility] [id number] [address], [place] [address] [place] Nucleated RBC (Bld) [#/Vol] 10*3/uL Normal <0.01 [facility] Comment on above: Order Comment: Speci men Type: BLOOD SPECIMENOrdering Facility: [facility] Address: [address] [place] [address] Performed By: #### 5 7021-8 ####[facility] [id number] [facility] [address], [facility] [place] Nucleated RBC/100 WBC (Bld) [Ratio] 0.0 /100 WBC Normal [facility] Comment on above: Order Comment: Speci men Type: BLOOD SPECIMENOrdering Facility: [facility] Address: [address] [place] [address] Performed By: #### 5 7021-8 ####[facility] [id number] [place] [address] [place] Platelet mean volume (Bld) [Entitic vol] 10.1 fL Normal 9.0-12.7 [facility] Comment on above: Order Comment: Speci men Type: BLOOD SPECIMENOrdering Facility: [facility] Address: [address] [place] [address] Performed By: #### 5 7021-8 ####[facility] [id number] [place] [address] [place] Platelets (Bld) [#/Vol] 209 10*3/uL Normal 150-400 [facility] Comment on above: Order Comment: Speci men Type: BLOOD SPECIMENOrdering Facility: [facility] Address: [address] [place] [address] Performed By: #### 5 7021-8 ####[facility] [id number] [place] [address] [place] RBC (Bld) [#/Vol] 2.88 10*6/uL Low 3.90-5.20 [facility] Comment on above: Order Comment: Speci men Type: BLOOD SPECIMENOrdering Facility: [facility] Address: [address] [place] [address] Performed By: #### 5 7021-8 ####[facility] [id number] [place] [address] [place] WBC (Bld) [#/Vol] 11.15 10*3/uL High 3.70-11.00 [facility] Comment on above: Order Comment: Speci men Type: BLOOD SPECIMENOrdering Facility: [facility] Address: [address] [place] [address] Performed By: #### 5 7021-8 ####[facility] [id number] [place] [id number] [place] CBC panel Auto (Bld)on 12-15 Erythrocyte distribution width (RBC) [Ratio] 21.4 % High 11.5-15.0 [facility] Comment on above: Order Comment: Speci men Type: BLOOD SPECIMENOrdering Facility: [facility] Address: [address] [place] [address] Performed By: #### 5 8410-2 ####[facility] [id number] [place] [address] [place] Hematocrit (Bld) [Volume fraction] 25.5 % Low 36.0-46.0 [facility] Comment on above: Order Comment: Speci men Type: BLOOD SPECIMENOrdering Facility: [facility] Address: [address] [place] [address] Performed By: #### 5 8410-2 ####[facility] [id number] [place] [address] [place] Hemoglobin (Bld) [Mass/Vol] 7.7 g/dL Low 11.5-15.5 [facility] Comment on above: Order Comment: Speci men Type: BLOOD SPECIMENOrdering Facility: [facility] Address: [address] [place] [address] Performed By: #### 5 8410-2 ####[facility] [id number] [place] [address] [place] MCH (RBC) [Entitic mass] 26.6 pg Normal 26.0-34.0 [facility] Comment on above: Order Comment: Speci men Type: BLOOD SPECIMENOrdering Facility: [facility] Address: [address] [place] [address] Performed By: #### 5 8410-2 ####[facility] [id number] [place] [address] [place] MCHC (RBC) [Mass/Vol] 30.2 g/dL Low 30.5-36.0 [facility] Comment on above: Order Comment: Speci men Type: BLOOD SPECIMENOrdering Facility: [facility] Address: [address] [place] [address] Performed By: #### 5 8410-2 ####[facility] [id number] [place] [address] [place] MCV (RBC) [Entitic vol] 87.9 fL Normal 80.0-100.0 [facility] Comment on above: Order Comment: Speci men Type: BLOOD SPECIMENOrdering Facility: [facility] Address: [address] [place] [address] Performed By: #### 5 8410-2 ####[facility] [id number] [place] [address] [place] Nucleated RBC (Bld) [#/Vol] 10*3/uL Normal <0.01 [facility] Comment on above: Order Comment: Speci men Type: BLOOD SPECIMENOrdering Facility: [facility] Address: [address] [place] [address] Performed By: #### 5 8410-2 ####[facility] [id number] [place] [address] [place] Platelet mean volume (Bld) [Entitic vol] 9.6 fL Normal 9.0-12.7 [facility] Comment on above: Order Comment: Speci men Type: BLOOD SPECIMENOrdering Facility: [facility] Address: [address] [place] [address] Performed By: #### 5 8410-2 ####[facility] [id number] [place] [id number] [place] Platelets (Bld) [#/Vol] 212 10*3/uL Normal 150-400 [facility] Comment on above: Order Comment: Speci men Type: BLOOD SPECIMENOrdering Facility: [facility] Address: [address] [place] [address] Performed By: #### 5 8410-2 ####[facility] [id number] [address] [address] [place] RBC (Bld) [#/Vol] 2.90 10*6/uL Low 3.90-5.20 [facility] Comment on above: Order Comment: Speci men Type: BLOOD SPECIMENOrdering Facility: [facility] Address: [address] [place] [address] Performed By: #### 5 8410-2 ####[facility] [id number] [place] [address] [place] WBC (Bld) [#/Vol] 11.25 10*3/uL High 3.70-11.00 [facility] Comment on above: Order Comment: Speci men Type: BLOOD SPECIMENOrdering Facility: [facility] Address: [address] [place] [address] Performed By: #### 5 8410-2 ####[facility] [id number] [place] [address] [place] CRP SerPl-ncon 12-15-2024 CRP [Mass/Vol] 26.8 mg/dL High <0.9 [facility] Comment on above: Order Comment: Speci men Type: BLOOD SPECIMENOrdering Facility: [facility] Address: [address] [place] [address] Performed By: #### 2 4323-8, 1987-10, , 2776-06 ####[facility] [id number] [place] [id number] [place] Comprehensive metabolic 2000 panelon 12-15-2024 Albumin [Mass/Vol] 2.9 g/dL Low 3.9-4.9 [facility] Comment on above: Order Comment: Speci men Type: BLOOD SPECIMENOrdering Facility: [facility] Address: [address] [place] [address] Performed By: #### 2 4323-8, 1987-10, , 2776-06 ####[facility] [id number] [address] [address] [place] ALP [Catalytic activity/Vol] 95 U/L Normal 34-123 [facility] Comment on above: Order Comment: Speci men Type: BLOOD SPECIMENOrdering Facility: [facility] Address: [address] [place] [address] Performed By: #### 2 4323-8, 1987-10, , 2776-06 ####[facility] [id number] [place] [id number] [place] ALT [Catalytic activity/Vol] 19 U/L Normal 7-38 [facility] Comment on above: Order Comment: Speci men Type: BLOOD SPECIMENOrdering Facility: [facility] Address: [address] [place] [address] Performed By: #### 2 4328, 1987-10, , 2776-06 ####[facility] [id number] [place] [address] [place] Anion gap [Moles/Vol] 11 mmol/L Normal 8-15 [facility] Comment on above: Order Comment: Speci men Type: BLOOD SPECIMENOrdering Facility: [facility] Address: [address] [place] [address] Performed By: #### 2 43238, 1987-10, , 2776-06 ####[facility] [id number] [place] [id number] [place] AST [Catalytic activity/Vol] 11 U/L Low 13-35 [facility] Comment on above: Order Comment: Speci men Type: BLOOD SPECIMENOrdering Facility: [facility] Address: [address] [place] [address] Performed By: #### 2 4323-8, 1987-10, , 2776-06 ####[facility] [id number] [address] [place] [address] [place] Bilirubin [Mass/Vol] 0.5 mg/dL Normal 0.2-1.3 [facility] Comment on above: Order Comment: Speci men Type: BLOOD SPECIMENOrdering Facility: [facility] Address: [address] [place], [place] [address] Performed By: #### 2 4328, 1987-10, , 2776-06 ####[facility] [id number] [facility] [address] [place] [address] [place] Calcium [Mass/Vol] 8.6 mg/dL Normal 8.5-10.2 [facility] Comment on above: Order Comment: Speci men Type: BLOOD SPECIMENOrdering Facility: [facility] Address: [address] [place] [address] Performed By: #### 2 4328, 1987-10, , 2776-06 ####[facility] [id number] [facility] [address] [place] [address] [place] Chloride [Moles/Vol] 100 mmol/L Normal 98-107 [facility] Comment on above: Order Comment: Speci men Type: BLOOD SPECIMENOrdering Facility: [facility] Address: [address] [place], [place] [address] Performed By: #### 2 4328, 1987-10, , 2776-06 ####[facility] [id number] [facility] [address] [place] [address] [place] CO2 [Moles/Vol] 23 mmol/L Normal 22-30 [facility] Comment on above: Order Comment: Speci men Type: BLOOD SPECIMENOrdering Facility: [facility] Address: [address] [place], [place] [address] Performed By: #### 2 4323-8, 1987-10, , 2776-06 ####[facility] [id number] [place] [address] [address] [place] Creatinine [Mass/Vol] 0.75 mg/dL Normal 0.58-0.96 [facility] Comment on above: Order Comment: Dora finch Type: BLOOD SPECIMENOrdering Facility: [facility] Address: [address] [place] [id number] Performed By: #### 2 4323-8, 1987-10, , 2776-06 ####[facility] [id number] [place] [address] [place] Creatinine and Glomerular filtration rate.predicted panel (S/P/Bld) 103 mL/min/1.73m??? Normal >=60 [facility] Comment on above: Order Comment: Dora finch Type: BLOOD SPECIMENOrdering Facility: [facility] Address: [address] [place] [address] Result Comment: Zeny mated Glomerular Filtration Rate [...] By: #### 2 4323-8, 1987-10, , 2776-06 ####[facility] [id number] [place] [id number] [place] Glucose [Mass/Vol] 103 mg/dL High 74-99 [facility] Comment on above: Order Comment: Dora finch Type: BLOOD SPECIMENOrdering Facility: [facility] Address: [address] [place] [address] Result Comment: The [place] [employer] (ADA) provides guidance for cutoff [...] Standards of Medical Care in Diabetes 2016, [place] [employer]. Diabetes Care. 2016.39(Suppl 1). Performed By: #### 2 43238, 1987-10, , 2776-06 ####[facility] [id number] [address] [address] [place] Potassium [Moles/Vol] 3.0 mmol/L Low 3.7-5.1 [facility] Comment on above: Order Comment: Speci men Type: BLOOD SPECIMENOrdering Facility: [facility] Address: [address] [place] [address] Performed By: #### 2 43209-01, 1987-10, , 2776-06 ####[facility] [id number] [place] [address] [place] Protein [Mass/Vol] 6.0 g/dL Low 6.3-8.0 [facility] Comment on above: Order Comment: Florii men Type: BLOOD SPECIMENOrdering Facility: [facility] Address: [address] [place] [address] Performed By: #### 2 43209-01, 1987-10, , 2776-06 ####[facility] [id number] [place] [id number] [place] Sodium [Moles/Vol] 134 mmol/L Low 136-144 [facility] Comment on above: Order Comment: Speci men Type: BLOOD SPECIMENOrdering Facility: [facility] Address: [address] [place] [address] Performed By: #### 2 43238, 1987-10, , 2776-06 ####[facility] [id number] [place] [id number] [place] Urea nitrogen [Mass/Vol] 11 mg/dL Normal 7-21 [facility] Comment on above: Order Comment: Speci men Type: BLOOD SPECIMENOrdering Facility: [facility] Address: [address] [place], [place] [address] Performed By: #### 2 4323-8, 1987-10, , 2776-06 ####[facility] [id number] [place] [id number] [place] Magnesium SerPl-mCncon 12-15 Magnesium [Mass/Vol] 1.9 mg/dL Normal 1.7-2.3 [facility] Comment on above: Order Comment: Speci men Type: BLOOD SPECIMENOrdering Facility: [facility] Address: [address] [place] [address] Performed By: #### 2 4323-8, 1987-10, , 2776-06 ####[facility] [id number] [place] [id number] [place] Phosphate SerPl-mCncon 12-15 Phosphate [Mass/Vol] 2.8 mg/dL Normal 2.7-4.8 [facility] Comment on above: Order Comment: Speci men Type: BLOOD SPECIMENOrdering Facility: [facility] Address: [address] [place] [address] Performed By: #### 2 43238, 1987-10, , 2776-06 ####[facility] [id number] [address] [address] [place] CASE MANAGEMon 12-14-2024 CASE MANAGEM Normal [facility] CBC W Auto Differential pane l (Bld)on 12-14-2024 Basophils (Bld) [#/Vol] 0.05 10*3/uL Normal <0.11 [facility] Comment on above: Order Comment: Speci men Type: BLOOD SPECIMENOrdering Facility: [facility] Address: [address] [place] [address] Performed By: #### 5 7021-8 ####[facility] [id number] [place] [address] [place] Basophils/100 WBC (Bld) 0.3 % Normal [facility] Comment on above: Order Comment: Speci men Type: BLOOD SPECIMENOrdering Facility: [facility] Address: [address] [place] [address] Performed By: #### 5 7021-8 ####[facility] [id number] [place] [address] [place] Differential cell count method Nom (Bld) Auto Normal [facility] Comment on above: Order Comment: Speci men Type: BLOOD SPECIMENOrdering Facility: [facility] Address: [address] [place] [address] Performed By: #### 5 7021-8 ####[facility] [id number] [place] [address] [place] Eosinophils (Bld) [#/Vol] 0.14 10*3/uL Normal <0.46 [facility] Comment on above: Order Comment: Speci men Type: BLOOD SPECIMENOrdering Facility: [facility] Address: [address] [place] [address] Performed By: #### 5 7021-8 ####[facility] [id number] [place] [address] [place] Eosinophils/100 WBC (Bld) 0.9 % Normal [facility] Comment on above: Order Comment: Speci men Type: BLOOD SPECIMENOrdering Facility: [facility] Address: [address] [place] [address] Performed By: #### 5 7021-8 ####[facility] [id number] [place] [address] [place] Erythrocyte distribution width (RBC) [Ratio] 22.0 % High 11.5-15.0 [facility] Comment on above: Order Comment: Speci men Type: BLOOD SPECIMENOrdering Facility: [facility] Address: [address] [place] [address] Performed By: #### 5 7021-8 ####[facility] [id number] [place] [address] [place] Hematocrit (Bld) [Volume fraction] 28.7 % Low 36.0-46.0 [facility] Comment on above: Order Comment: Speci men Type: BLOOD SPECIMENOrdering Facility: [facility] Address: [address] [place] [address] Performed By: #### 5 7021-8 ####[facility] [id number] [place] [address] [place] Hemoglobin (Bld) [Mass/Vol] 8.6 g/dL Low 11.5-15.5 [facility] Comment on above: Order Comment: Speci men Type: BLOOD SPECIMENOrdering Facility: [facility] Address: [address] [place] [address] Performed By: #### 5 7021-8 ####[facility] [id number] [place] [address] [place] Immature granulocytes (Bld) [#/Vol] 0.12 10*3/uL High <0.10 [facility] Comment on above: Order Comment: Speci men Type: BLOOD SPECIMENOrdering Facility: [facility] Address: [address] [place] [address] Performed By: #### 5 7021-8 ####[facility] [id number] [place] [address] [place] Immature granulocytes/100 WBC (Bld) 0.7 % Normal [facility] Comment on above: Order Comment: Speci men Type: BLOOD SPECIMENOrdering Facility: [facility] Address: [address] [place] [address] Performed By: #### 5 7021-8 ####[facility] [id number] [place] [address] [place] Lymphocytes (Bld) [#/Vol] 1.56 10*3/uL Normal 1.00-4.00 [facility] Comment on above: Order Comment: Speci men Type: BLOOD SPECIMENOrdering Facility: [facility] Address: [address] [place] [address] Performed By: #### 5 7021-8 ####[facility] [id number] [place] [address] [place] Lymphocytes/100 WBC (Bld) 9.7 % Normal [facility] Comment on above: Order Comment: Speci men Type: BLOOD SPECIMENOrdering Facility: [facility] Address: [address] [place] [address] Performed By: #### 5 7021-8 ####[facility] [id number] [place] [address] [place] MCH (RBC) [Entitic mass] 26.5 pg Normal 26.0-34.0 [facility] Comment on above: Order Comment: Speci men Type: BLOOD SPECIMENOrdering Facility: [facility] Address: [address] [place] [address] Performed By: #### 5 7021-8 ####[facility] [id number] [place] [address] [place] MCHC (RBC) [Mass/Vol] 30.0 g/dL Low 30.5-36.0 [facility] Comment on above: Order Comment: Speci men Type: BLOOD SPECIMENOrdering Facility: [facility] Address: [address] [place] [address] Performed By: #### 5 7021-8 ####[facility] [id number] [place] [address] [place] MCV (RBC) [Entitic vol] 88.6 fL Normal 80.0-100.0 [facility] Comment on above: Order Comment: Speci men Type: BLOOD SPECIMENOrdering Facility: [facility] Address: [address] [place] [address] Performed By: #### 5 7021-8 ####[facility] [id number] [place] [address] [place] Monocytes (Bld) [#/Vol] 1.48 10*3/uL High <0.87 [facility] Comment on above: Order Comment: Speci men Type: BLOOD SPECIMENOrdering Facility: [facility] Address: [address] [place] [address] Performed By: #### 5 7021-8 ####[facility] [id number] [place] [address] [place] Monocytes/100 WBC (Bld) 9.2 % Normal [facility] Comment on above: Order Comment: Speci men Type: BLOOD SPECIMENOrdering Facility: [facility] Address: [address] [place] [address] Performed By: #### 5 7021-8 ####[facility] [id number] [place] [address] [place] Neutrophils (Bld) [#/Vol] 12.66 10*3/uL High 1.45-7.50 [facility] Comment on above: Order Comment: Speci men Type: BLOOD SPECIMENOrdering Facility: [facility] Address: [address] [place] [address] Performed By: #### 5 7021-8 ####[facility] [id number] [place] [address] [place] Neutrophils/100 WBC (Bld) 79.2 % Normal [facility] Comment on above: Order Comment: Speci men Type: BLOOD SPECIMENOrdering Facility: [facility] Address: [address] [place] [address] Performed By: #### 5 7021-8 ####[facility] [id number] [place] [address] [place] Nucleated RBC (Bld) [#/Vol] 0.02 10*3/uL High <0.01 [facility] Comment on above: Order Comment: Speci men Type: BLOOD SPECIMENOrdering Facility: [facility] Address: [address] [place] [address] Performed By: #### 5 7021-8 ####[facility] LABCLIA [id number] [place] [address] [place] Nucleated RBC/100 WBC (Bld) [Ratio] 0.1 /100 WBC Normal [facility] Comment on above: Order Comment: Speci men Type: BLOOD SPECIMENOrdering Facility: [facility] Address: [address] [place] [address] Performed By: #### 5 7021-8 ####[facility] [id number] [place] [address] [place] Platelet mean volume (Bld) [Entitic vol] 9.7 fL Normal 9.0-12.7 [facility] Comment on above: Order Comment: Speci men Type: BLOOD SPECIMENOrdering Facility: [facility] Address: [address] [place] [address] Performed By: #### 5 7021-8 ####[facility] [id number] [place] [address] [place] Platelets (Bld) [#/Vol] 236 10*3/uL Normal 150-400 [facility] Comment on above: Order Comment: Speci men Type: BLOOD SPECIMENOrdering Facility: [facility] Address: [address] [place] [address] Performed By: #### 5 7021-8 ####[facility] [id number] [address] [address] [place] RBC (Bld) [#/Vol] 3.24 10*6/uL Low 3.90-5.20 [facility] Comment on above: Order Comment: Speci men Type: BLOOD SPECIMENOrdering Facility: [facility] Address: [address] [place] [address] Performed By: #### 5 7021-8 ####[facility] [id number] [place] [id number] [place] WBC (Bld) [#/Vol] 16.01 10*3/uL High 3.70-11.00 [facility] Comment on above: Order Comment: Speci men Type: BLOOD SPECIMENOrdering Facility: [facility] Address: [address] [place] [address] Performed By: #### 5 7021-8 ####[facility] [id number] [place] [id number] [place] CONSULT PROGon 12-14-2024 CONSULT PROG Normal [facility] CONSULT PROG Normal [facility] Comprehensive metabolic 2000 panelon 12-14-2024 Albumin [Mass/Vol] 3.3 g/dL Low 3.9-4.9 [facility] Comment on above: Order Comment: Speci men Type: BLOOD SPECIMENOrdering Facility: [facility] Address: [address] [place] [address] Performed By: #### 2 4323-8, 65848-0, 2777- ####[facility] [id number] [place] [id number] [place] ALP [Catalytic activity/Vol] 103 U/L Normal 34-123 [facility] Comment on above: Order Comment: Speci men Type: BLOOD SPECIMENOrdering Facility: [facility] Address: [address] [place] [address] Performed By: #### 2 4323-8, 52224-3, 2777-1 ####[facility] [id number] [facility] [id number] [address] [place] ALT [Catalytic activity/Vol] 25 U/L Normal 7-38 [facility] Comment on above: Order Comment: Speci men Type: BLOOD SPECIMENOrdering Facility: [facility] Address: [address] [place] [address] Performed By: #### 2 4323-8, , 2776-06 ####[facility] [id number] [facility] [address] [place] [address] [place] Anion gap [Moles/Vol] 12 mmol/L Normal 8-15 [facility] Comment on above: Order Comment: Speci men Type: BLOOD SPECIMENOrdering Facility: [facility] Address: [address] [place] [address] Performed By: #### 2 4323-8, , 2776-06 ####[facility] [id number] [address] [place] [address] [place] AST [Catalytic activity/Vol] 19 U/L Normal 13-35 [facility] Comment on above: Order Comment: Speci men Type: BLOOD SPECIMENOrdering Facility: [facility] Address: [address] [place] [address] Performed By: #### 2 4323-8, , 2776-06 ####[facility] [id number] [address] [place] [address] [place] Bilirubin [Mass/Vol] 0.9 mg/dL Normal 0.2-1.3 [facility] Comment on above: Order Comment: Speci men Type: BLOOD SPECIMENOrdering Facility: [facility] Address: [address] [place] [address] Performed By: #### 2 4323-8, , 2776- ####[facility] [id number] [address] [place] [address] [place] Calcium [Mass/Vol] 8.6 mg/dL Normal 8.5-10.2 [facility] Comment on above: Order Comment: Speci men Type: BLOOD SPECIMENOrdering Facility: [facility] Address: [address] [place] [address] Performed By: #### 2 4323-8, 14865-9, 2776-06 ####[facility] [id number] [place] [id number] [place] Chloride [Moles/Vol] 100 mmol/L Normal 98-107 [facility] Comment on above: Order Comment: Speci men Type: BLOOD SPECIMENOrdering Facility: [facility] Address: [address] [place] [address] Performed By: #### 2 4323-8, , 2776-06 ####[facility] [id number] [place] [address] [place] CO2 [Moles/Vol] 21 mmol/L Low 22-30 [facility] Comment on above: Order Comment: Speci men Type: BLOOD SPECIMENOrdering Facility: [facility] Address: [address] [place] [address] Performed By: #### 2 4323-8, , 2776-06 ####[facility] [id number] [place] [address] [place] Creatinine [Mass/Vol] 0.91 mg/dL Normal 0.58-0.96 [facility] Comment on above: Order Comment: Speci men Type: BLOOD SPECIMENOrdering Facility: [facility] Address: [address] [place] [address] Performed By: #### 2 4323-8, , 2776-06 ####[facility] [id number] [facility] [place] [id number] [place] Creatinine and Glomerular filtration rate.predicted panel (S/P/Bld) 81 mL/min/1.73m??? Normal >=60 [facility] Comment on above: Order Comment: Dora finch Type: BLOOD SPECIMENOrdering Facility: [facility] Address: [address] [place] [address] Result Comment: Zeny mated Glomerular Filtration Rate [...] Performed By: #### 2 4323-8, , 2776-06 ####[facility] [id number] [address] [address] [place] Glucose [Mass/Vol] 139 mg/dL High 74-99 [facility] Comment on above: Order Comment: Dora finch Type: BLOOD SPECIMENOrdering Facility: [facility] Address: [address] [place] [address] Result Comment: The [place] Diabetes Association (ADA) provides guidance for cutoff [...] Standards of Medical Care in Diabetes 2016, [employer]. Diabetes Care. 2016.39(Suppl 1). Performed By: #### 2 4323-8, 20608-5, 2776- ####[facility] [id number] [address] [address] [place] Potassium [Moles/Vol] 3.8 mmol/L Normal 3.7-5.1 [facility] Comment on above: Order Comment: Speci men Type: BLOOD SPECIMENOrdering Facility: [facility] Address: [address] [place], [place] [address] Performed By: #### 2 4323-8, , 2776-06 ####[facility] [id number] [address] [place] [address] [place] Protein [Mass/Vol] 6.2 g/dL Low 6.3-8.0 [facility] Comment on above: Order Comment: Speci men Type: BLOOD SPECIMENOrdering Facility: [facility] Address: [address] [place], [place] [address] Performed By: #### 2 4323-8, , 2776-06 ####[facility] [id number] [address] [address] [place] Sodium [Moles/Vol] 133 mmol/L Low 136-144 [facility] Comment on above: Order Comment: Speci men Type: BLOOD SPECIMENOrdering Facility: [facility] Address: [address] [place], [place] [address] Performed By: #### 2 4323-8, , 2776-06 ####[facility] [id number] [address] [address] [place] Urea nitrogen [Mass/Vol] 11 mg/dL Normal 7-21 [facility] Comment on above: Order Comment: Speci men Type: BLOOD SPECIMENOrdering Facility: [facility] Address: [address] [place], [place] [address] Performed By: #### 2 4323-8, , 2776-06 ####[facility] [id number] [address] [address] [place] Magnesium SerPl-mCncon 12-14 Magnesium [Mass/Vol] 1.9 mg/dL Normal 1.7-2.3 [facility] Comment on above: Order Comment: Speci men Type: BLOOD SPECIMENOrdering Facility: [facility] Address: [address] [place] [address] Performed By: #### 2 4323-8, , 2776-06 ####[facility] [id number] [place] [address] [place] Phosphate SerPl-mCncon 12-14 Phosphate [Mass/Vol] 2.3 mg/dL Low 2.7-4.8 [facility] Comment on above: Order Comment: Speci men Type: BLOOD SPECIMENOrdering Facility: [facility] Address: [address] [place] [address] Performed By: #### 2 4323-8, , 2776-06 ####[facility] [id number] [place] [address] [place] XR ABDOMEN 1V SUPINEon 12-14 XR ABDOMEN 1V SUPINE Normal [facility] CBC W Auto Differential pane l (Bld)on 12-13-2024 Basophils (Bld) [#/Vol] 0.04 10*3/uL Normal <0.11 [facility] Comment on above: Order Comment: Speci men Type: BLOOD SPECIMENOrdering Facility: [facility] Address: [address] [place] [address] Performed By: #### 5 7021-8 ####[facility] [id number] [place] [address] [place] Basophils/100 WBC (Bld) 0.3 % Normal [facility] Comment on above: Order Comment: Speci men Type: BLOOD SPECIMENOrdering Facility: [facility] Address: [address] [place] [address] Performed By: #### 5 7021-8 ####[facility] [id number] [place] [address] [place] Differential cell count method Nom (Bld) Auto Normal [facility] Comment on above: Order Comment: Speci men Type: BLOOD SPECIMENOrdering Facility: [facility] Address: [address] [place] [address] Performed By: #### 5 7021-8 ####[facility] [id number] [place] [address] [place] Eosinophils (Bld) [#/Vol] 10*3/uL Normal <0.46 [facility] Comment on above: Order Comment: Speci men Type: BLOOD SPECIMENOrdering Facility: [facility] Address: [address] [place] [address] Performed By: #### 5 7021-8 ####[facility] [id number] [place] [address] [place] Eosinophils/100 WBC (Bld) 0.1 % Normal [facility] Comment on above: Order Comment: Speci men Type: BLOOD SPECIMENOrdering Facility: [facility] Address: [address] [place] [address] Performed By: #### 5 7021-8 ####[facility] [id number] [place] [address] [place] Erythrocyte distribution width (RBC) [Ratio] 23.1 % High 11.5-15.0 [facility] Comment on above: Order Comment: Speci men Type: BLOOD SPECIMENOrdering Facility: [facility] Address: [address] [place] [address] Performed By: #### 5 7021-8 ####[facility] [id number] [place] [id number] [place] Hematocrit (Bld) [Volume fraction] 34.3 % Low 36.0-46.0 [facility] Comment on above: Order Comment: Speci men Type: BLOOD SPECIMENOrdering Facility: [facility] Address: [address] [place] [address] Performed By: #### 5 7021-8 ####[facility] [id number] [place] [address] [place] Hemoglobin (Bld) [Mass/Vol] 10.3 g/dL Low 11.5-15.5 [facility] Comment on above: Order Comment: Speci men Type: BLOOD SPECIMENOrdering Facility: [facility] Address: [address] [place] [address] Performed By: #### 5 7021-8 ####[facility] [id number] [place] [address] [place] Immature granulocytes (Bld) [#/Vol] 0.12 10*3/uL High <0.10 [facility] Comment on above: Order Comment: Speci men Type: BLOOD SPECIMENOrdering Facility: [facility] Address: [address] [place] [address] Performed By: #### 5 7021-8 ####[facility] [id number] [place] [address] [place] Immature granulocytes/100 WBC (Bld) 0.8 % Normal [facility] Comment on above: Order Comment: Speci men Type: BLOOD SPECIMENOrdering Facility: [facility] Address: [address] [place] [address] Performed By: #### 5 7021-8 ####[facility] [id number] [place] [address] [place] Lymphocytes (Bld) [#/Vol] 1.27 10*3/uL Normal 1.00-4.00 [facility] Comment on above: Order Comment: Speci men Type: BLOOD SPECIMENOrdering Facility: [facility] Address: [address] [place] [address] Performed By: #### 5 7021-8 ####[facility] [id number] [place] [address] [place] Lymphocytes/100 WBC (Bld) 8.0 % Normal [facility] Comment on above: Order Comment: Speci men Type: BLOOD SPECIMENOrdering Facility: [facility] Address: [address] [place] [address] Performed By: #### 5 7021-8 ####[facility] [id number] [place] [address] [place] MCH (RBC) [Entitic mass] 26.9 pg Normal 26.0-34.0 [facility] Comment on above: Order Comment: Speci men Type: BLOOD SPECIMENOrdering Facility: [facility] Address: [address] [place] [address] Performed By: #### 5 7021-8 ####[facility] [id number] [place] [address] [place] MCHC (RBC) [Mass/Vol] 30.0 g/dL Low 30.5-36.0 [facility] Comment on above: Order Comment: Speci men Type: BLOOD SPECIMENOrdering Facility: [facility] Address: [address] [place] [address] Performed By: #### 5 7021-8 ####[facility] [id number] [place] [address] [place] MCV (RBC) [Entitic vol] 89.6 fL Normal 80.0-100.0 [facility] Comment on above: Order Comment: Speci men Type: BLOOD SPECIMENOrdering Facility: [facility] Address: [address] [place] [address] Performed By: #### 5 7021-8 ####[facility] [id number] [place] [address] [place] Monocytes (Bld) [#/Vol] 1.51 10*3/uL High <0.87 [facility] Comment on above: Order Comment: Speci men Type: BLOOD SPECIMENOrdering Facility: [facility] Address: [address] [place] [address] Performed By: #### 5 7021-8 ####[facility] [id number] [place] [address] [place] Monocytes/100 WBC (Bld) 9.5 % Normal [facility] Comment on above: Order Comment: Speci men Type: BLOOD SPECIMENOrdering Facility: [facility] Address: [address] [place] [address] Performed By: #### 5 7021-8 ####[facility] [id number] [place] [address] [place] Neutrophils (Bld) [#/Vol] 12.87 10*3/uL High 1.45-7.50 [facility] Comment on above: Order Comment: Speci men Type: BLOOD SPECIMENOrdering Facility: [facility] Address: [address] [place] [address] Performed By: #### 5 7021-8 ####[facility] [id number] [place] [address] [place] Neutrophils/100 WBC (Bld) 81.3 % Normal [facility] Comment on above: Order Comment: Speci men Type: BLOOD SPECIMENOrdering Facility: [facility] Address: [address] [place] [address] Performed By: #### 5 7021-8 ####[facility] [id number] [place] [address] [place] Nucleated RBC (Bld) [#/Vol] 0.02 10*3/uL High <0.01 [facility] Comment on above: Order Comment: Speci men Type: BLOOD SPECIMENOrdering Facility: [facility] Address: [address] [place] [address] Performed By: #### 5 7021-8 ####[facility] [id number] [place] [address] [place] Nucleated RBC/100 WBC (Bld) [Ratio] 0.1 /100 WBC Normal [facility] Comment on above: Order Comment: Speci men Type: BLOOD SPECIMENOrdering Facility: [facility] Address: [address] [place] [address] Performed By: #### 5 7021-8 ####[facility] [id number] [place] [address] [place] Platelet mean volume (Bld) [Entitic vol] 9.7 fL Normal 9.0-12.7 [facility] Comment on above: Order Comment: Speci men Type: BLOOD SPECIMENOrdering Facility: [facility] Address: [address] [place] [address] Performed By: #### 5 7021-8 ####[facility] [id number] [place] [address] [place] Platelets (Bld) [#/Vol] 274 10*3/uL Normal 150-400 [facility] Comment on above: Order Comment: Speci men Type: BLOOD SPECIMENOrdering Facility: [facility] Address: [address] [place] [address] Performed By: #### 5 7021-8 ####[facility] [id number] [place] [address] [place] RBC (Bld) [#/Vol] 3.83 10*6/uL Low 3.90-5.20 [facility] Comment on above: Order Comment: Speci men Type: BLOOD SPECIMENOrdering Facility: [facility] Address: [address] [place] [address] Performed By: #### 5 7021-8 ####[facility] [id number] [place] [address] [place] WBC (Bld) [#/Vol] 15.82 10*3/uL High 3.70-11.00 [facility] Comment on above: Order Comment: Speci men Type: BLOOD SPECIMENOrdering Facility: [facility] Address: [address] [place] [address] Performed By: #### 5 7021-8 ####[facility] [id number] [address] [address] [place] CNPNon 12-13-2024 CNPN Normal [facility] CONSULTon 12-13-2024 CONSULT Normal [facility] CONSULT PROGon 12-13-2024 CONSULT PROG Normal [facility] CONSULT PROG Normal [facility] CRP SerPl-mCncon 12-13-2024 CRP [Mass/Vol] 14.4 mg/dL High <0.9 [facility] Comment on above: Order Comment: Speci men Type: BLOOD SPECIMENOrdering Facility: [facility] Address: [address] [place] [address] Performed By: #### 1 988-5 ####[facility] [id number] [address], [facility]95 [place] Comprehensive metabolic 2000 panelon 12-13-2024 Albumin [Mass/Vol] 3.8 g/dL Low 3.9-4.9 [facility] Comment on above: Order Comment: Speci men Type: BLOOD SPECIMENOrdering Facility: [facility] Address: [address] [place] [address] Performed By: #### 2 4323-8, , 2776- ####[facility] [id number] [address] [place] [address] [place] ALP [Catalytic activity/Vol] 118 U/L Normal 34-123 [facility] Comment on above: Order Comment: Speci men Type: BLOOD SPECIMENOrdering Facility: [facility] Address: [address] [place] [address] Performed By: #### 2 4323-8, 64409-4, 7- ####[facility] [id number] [address] [place] [address] [place] ALT [Catalytic activity/Vol] 40 U/L High 7-38 [facility] Comment on above: Order Comment: Speci men Type: BLOOD SPECIMENOrdering Facility: [facility] Address: [address] [place], [place] [address] Performed By: #### 2 4323-8, 18128-7, 2776-06 ####[facility] [id number] [facility] [address] [place] [address] [place] Anion gap [Moles/Vol] 14 mmol/L Normal 8-15 [facility] Comment on above: Order Comment: Speci men Type: BLOOD SPECIMENOrdering Facility: [facility] Address: [address] [place] [address] Performed By: #### 2 4323-8, , 2776-06 ####[facility] [id number] [place] [id number] [place] AST [Catalytic activity/Vol] 31 U/L Normal 13-35 [facility] Comment on above: Order Comment: Speci men Type: BLOOD SPECIMENOrdering Facility: [facility] Address: [address] [place] [address] Performed By: #### 2 4323-8, , 2776-06 ####[facility] [id number] [facility] [address], [facility] [place] Bilirubin [Mass/Vol] 1.1 mg/dL Normal 0.2-1.3 [facility] Comment on above: Order Comment: Speci men Type: BLOOD SPECIMENOrdering Facility: [facility] Address: [address] [place], [place] [address] Performed By: #### 2 4323-8, , 2776-06 ####[facility] [id number] [facility] [address] [place] [address] [place] Calcium [Mass/Vol] 9.0 mg/dL Normal 8.5-10.2 [facility] Comment on above: Order Comment: Speci men Type: BLOOD SPECIMENOrdering Facility: [facility] Address: [address] [place], [place] [address] Performed By: #### 2 4323-8, , 2776-06 ####[facility] [id number] [facility] [place] [place] [address] [place] Chloride [Moles/Vol] 102 mmol/L Normal 98-107 [facility] Comment on above: Order Comment: Speci men Type: BLOOD SPECIMENOrdering Facility: [facility] Address: [address] [place], [place] [address] Performed By: #### 2 4323-8, , 2776-06 ####[facility] [id number] [address] [address] [place] CO2 [Moles/Vol] 21 mmol/L Low 22-30 [facility] Comment on above: Order Comment: Speci men Type: BLOOD SPECIMENOrdering Facility: [facility] Address: [address] [place], [place] [address] Performed By: #### 2 4323-8, , 2776-06 ####[facility] [id number] [address] [place] [address] [place] Creatinine [Mass/Vol] 0.74 mg/dL Normal 0.58-0.96 [facility] Comment on above: Order Comment: Speci men Type: BLOOD SPECIMENOrdering Facility: [facility] Address: [address] [place] [address] Performed By: #### 2 4323-8, , 2776-06 ####[facility] [id number] [facility] [address] [place] [address] [place] Creatinine and Glomerular filtration rate.predicted panel (S/P/Bld) 104 mL/min/1.73m??? Normal >=60 [facility] Comment on above: Order Comment: Speci men Type: BLOOD SPECIMENOrdering Facility: [facility] Address: [address] [place] [address] Result Comment: Zeny mated Glomerular Filtration Rate [...] actual GFR. Performed By: #### 2 4323-8, 92544-2, 2776-06 ####[facility] [id number] [place] [id number] [place] Glucose [Mass/Vol] 124 mg/dL High 74-99 [facility] Comment on above: Order Comment: Dora finch Type: BLOOD SPECIMENOrdering Facility: [facility] Address: [address] [place] [address] Result Comment: The [employer] (ADA) provides guidance for cutoff [...] Standards of Medical Care in Diabetes 2016, [employer]. Diabetes Care. 2016.39(Suppl 1). Performed By: #### 2 4323-8, 86232-4, 2776-06 ####[facility] [id number] [place] [id number] [place] Potassium [Moles/Vol] 4.5 mmol/L Normal 3.7-5.1 [facility] Comment on above: Order Comment: Dora finch Type: BLOOD SPECIMENOrdering Facility: [facility] Address: [address] [place] [address] Performed By: #### 2 4323-8, 72754-4, 2776-06 ####[facility] [id number] [place] [id number] [place] Protein [Mass/Vol] 6.5 g/dL Normal 6.3-8.0 [facility] Comment on above: Order Comment: Speci men Type: BLOOD SPECIMENOrdering Facility: [facility] Address: [address] [place] [address] Performed By: #### 2 4323-8, 93389-5, 2776-06 ####[facility] [id number] [place] [id number] [place] Sodium [Moles/Vol] 137 mmol/L Normal 136-144 [facility] Comment on above: Order Comment: Speci men Type: BLOOD SPECIMENOrdering Facility: [facility] Address: [address] [place] [address] Performed By: #### 2 4323-8, 26427-9, 2776-06 ####[facility] [id number] [place] [id number] [place] Urea nitrogen [Mass/Vol] 11 mg/dL Normal 7-21 [facility] Comment on above: Order Comment: Speci men Type: BLOOD SPECIMENOrdering Facility: [facility] Address: [address] [place] [address] Performed By: #### 2 4323-8, 06711-0, 2776-06 ####[facility] [id number] [address] [address] [place] Magnesium SerPl-mCncon 12-13 Magnesium [Mass/Vol] 1.6 mg/dL Low 1.7-2.3 [facility] Comment on above: Order Comment: Speci men Type: BLOOD SPECIMENOrdering Facility: [facility] Address: [address] [place], [place] [address] Performed By: #### 2 4323-8, 98577-1, 2777-1 ####[facility] [id number] [place] [id number] [place] Phosphate SerPl-mCncon 12-13 Phosphate [Mass/Vol] 3.8 mg/dL Normal 2.7-4.8 [facility] Comment on above: Order Comment: Speci men Type: BLOOD SPECIMENOrdering Facility: [facility] Address: [address] [place] [address] Performed By: #### 2 4323-8, 28563-8, 2777-1 ####[facility] [id number] [place] [address] [place] ANES POSTPROC EVALon 025 ANES POSTPROC EVAL Normal [facility] ANES PRE-OPon 12-12-2024 ANES PRE-OP Normal [facility] ARTERIAL BLOOD GASESon 12-12 Base deficit (BldA) [Moles/Vol] -6 mmol/L Low -2-0 [facility] Comment on above: Order Comment: Speci men Type: ARTERIAL BLOOD SPECIMENOrdering Facility: [facility] Address: [address] [place] [address] Performed By: #### A LLBG ####[facility] [id number] [place] [id number] [place] Body temperature 97.34 [degF] Normal [facility] Comment on above: Order Comment: Speci men Type: ARTERIAL BLOOD SPECIMENOrdering Facility: [facility] Address: [address] [place] [address] Performed By: #### A LLBG ####[facility] [id number] [place] [id number] [place] Calcium.ionized (Bld) [Mass/Vol] 1.19 mmol/L Normal 1.08-1.30 [facility] Comment on above: Order Comment: Speci men Type: ARTERIAL BLOOD SPECIMENOrdering Facility: [facility] Address: [address] [place] [address] Performed By: #### A LLBG ####[facility] [id number] [place] [address] [place] Calcium.ionized adjusted to pH 7.4 (BldA) [Moles/Vol] 1.15 mmol/L Normal 1.08-1.30 [facility] Comment on above: Order Comment: Speci men Type: ARTERIAL BLOOD SPECIMENOrdering Facility: [facility] Address: [address] [place] [address] Performed By: #### A LLBG ####[facility] [id number] [place] [address] [place] Carboxyhemoglobin (BldA) [Mass fraction] 1.6 % Normal 0.0-2.0 [facility] Comment on above: Order Comment: Speci men Type: ARTERIAL BLOOD SPECIMENOrdering Facility: [facility] Address: [address] [place] [address] Result Comment: Carb oxyhemoglobin Reference Range for Smokers: 2.0-8.0% Performed By: #### A LLBG ####[facility] [id number] [place] [address] [place] CO2 (Bld) [Partial pressure] 38 mm Hg Normal 36-46 [facility] Comment on above: Order Comment: Speci men Type: ARTERIAL BLOOD SPECIMENOrdering Facility: [facility] Address: [address] [place] [address] Performed By: #### A LLBG ####[facility] [id number] [place] [id number] [place] CO2 adjusted to patient's actual temperature (Bld) [Partial pressure] 36 mmHg Normal 36-46 [facility] Comment on above: Order Comment: Speci men Type: ARTERIAL BLOOD SPECIMENOrdering Facility: [facility] Address: [address] [place] [address] Performed By: #### A LLBG ####[facility] [id number] [place] [address] [place] Glucose [Mass/Vol] 178 mg/dL High 60-105 [facility] Comment on above: Order Comment: Speci men Type: ARTERIAL BLOOD SPECIMENOrdering Facility: [facility] Address: [address] [place] [address] Performed By: #### A LLBG ####[facility] [id number] [place] [address] [place] HCO3 (Bld) [Moles/Vol] 19 mmol/L Low 22-26 [facility] Comment on above: Order Comment: Speci men Type: ARTERIAL BLOOD SPECIMENOrdering Facility: [facility] Address: [address] [place] [address] Performed By: #### A LLBG ####[facility] [id number] [place] [address] [place] Hematocrit (Bld) [Volume fraction] 27.9 % Low 36.0-46.0 [facility] Comment on above: Order Comment: Speci men Type: ARTERIAL BLOOD SPECIMENOrdering Facility: [facility] Address: [address] [place] [address] Performed By: #### A LLBG ####[facility] [id number] [place] [id number] [place] Hemoglobin (Bld) [Mass/Vol] 9.0 g/dL Low 11.5-15.5 [facility] Comment on above: Order Comment: Speci men Type: ARTERIAL BLOOD SPECIMENOrdering Facility: [facility] Address: [address] [place] [address] Performed By: #### A LLBG ####[facility] [id number] [place] [address] [place] Lactate [Moles/Vol] 5.1 mmol/L High 0.5-2.2 [facility] Comment on above: Order Comment: Speci men Type: ARTERIAL BLOOD SPECIMENOrdering Facility: [facility] Address: [address] [place] [address] Performed By: #### A LLBG ####[facility] [id number] [place] [address] [place] LITERS 2 Liters/min Normal [facility] Comment on above: Order Comment: Speci men Type: ARTERIAL BLOOD SPECIMENOrdering Facility: [facility] Address: [address] [place] [address] Performed By: #### A LLBG ####[facility] [id number] [place] [address] [place] Methemoglobin (Bld) [Mass fraction] 1.0 % Normal 0.0-1.5 [facility] Comment on above: Order Comment: Speci men Type: ARTERIAL BLOOD SPECIMENOrdering Facility: [facility] Address: [address] [place] [address] Performed By: #### A LLBG ####[facility] [id number] [place] [address] [place] O2 THERAPY NC = Nasal Cannula Normal [facility] Comment on above: Order Comment: Speci men Type: ARTERIAL BLOOD SPECIMENOrdering Facility: [facility] Address: [address] [place] [address] Performed By: #### A LLBG ####[facility] [id number] [place] [id number] [place] Oxygen (Bld) [Partial pressure] 110 mm Hg High 85-95 [facility] Comment on above: Order Comment: Speci men Type: ARTERIAL BLOOD SPECIMENOrdering Facility: [facility] Address: [address] [place] [address] Performed By: #### A LLBG ####[facility] [id number] [place] [address] [place] Oxygen adjusted to patient's actual temperature (Bld) [Partial pressure] 106 mmHg High 85-95 [facility] Comment on above: Order Comment: Speci men Type: ARTERIAL BLOOD SPECIMENOrdering Facility: [facility] Address: [address] [place] [address] Performed By: #### A LLBG ####[facility] [id number] [place] [address] [place] Oxyhemoglobin (BldA) [Mass fraction] 96 % Normal 95-98 [facility] Comment on above: Order Comment: Speci men Type: ARTERIAL BLOOD SPECIMENOrdering Facility: [facility] Address: [address] [place] [address] Performed By: #### A LLBG ####[facility] [id number] [place] [address] [place] pH (Bld) 7.33 [pH] Low 7.35-7.45 [facility] Comment on above: Order Comment: Speci men Type: ARTERIAL BLOOD SPECIMENOrdering Facility: [facility] Address: [address] [place] [address] Performed By: #### A LLBG ####[facility] [id number] [place] [address] [place] pH adjusted to patient's actual temperature (Bld) 7.34 Low 7.35-7.45 [facility] Comment on above: Order Comment: Speci men Type: ARTERIAL BLOOD SPECIMENOrdering Facility: [facility] Address: [address] [place] [address] Performed By: #### A LLBG ####[facility] [id number] [place] [id number] [place] Potassium [Moles/Vol] 4.3 mmol/L Normal 3.5-5.0 [facility] Comment on above: Order Comment: Speci men Type: ARTERIAL BLOOD SPECIMENOrdering Facility: [facility] Address: [facility] [place] [address] Performed By: #### A LLBG ####[facility] [id number] [place] [address] [place] Sodium [Moles/Vol] 139 mmol/L Normal 136-144 [facility] Comment on above: Order Comment: Speci men Type: ARTERIAL BLOOD SPECIMENOrdering Facility: [facility] Address: [address] [place] [address] Performed By: #### A LLBG ####[facility] [id number] [place] [address] [place] Base deficit (BldA) [Moles/Vol] -7 mmol/L Low -2-0 [facility] Comment on above: Order Comment: Speci men Type: ARTERIAL BLOOD SPECIMENOrdering Facility: [facility] Address: [address] [place] [address] Performed By: #### A LLBG ####[facility] [id number] [place] [address] [place] Body temperature 97.52 [degF] Normal [facility] Comment on above: Order Comment: Speci men Type: ARTERIAL BLOOD SPECIMENOrdering Facility: [facility] Address: [address] [place] [address] Performed By: #### A LLBG ####[facility] [id number] [place] [address] [place] Calcium.ionized (Bld) [Mass/Vol] 1.17 mmol/L Normal 1.08-1.30 [facility] Comment on above: Order Comment: Speci men Type: ARTERIAL BLOOD SPECIMENOrdering Facility: [facility] Address: [address] [place] [address] Performed By: #### A LLBG ####[facility] [id number] [place] [address] [place] Calcium.ionized adjusted to pH 7.4 (BldA) [Moles/Vol] 1.13 mmol/L Normal 1.08-1.30 [facility] Comment on above: Order Comment: Speci men Type: ARTERIAL BLOOD SPECIMENOrdering Facility: [facility] Address: [address] [place] [address] Performed By: #### A LLBG ####[facility] [id number] [place] [address] [place] Carboxyhemoglobin (BldA) [Mass fraction] 1.6 % Normal 0.0-2.0 [facility] Comment on above: Order Comment: Speci men Type: ARTERIAL BLOOD SPECIMENOrdering Facility: [facility] Address: [address] [place] [address] Result Comment: Carb oxyhemoglobin Reference Range for Smokers: 2.0-8.0% Performed By: #### A LLBG ####[facility] [id number] [place] [address] [place] CO2 (Bld) [Partial pressure] 33 mm Hg Low 36-46 [facility] Comment on above: Order Comment: Speci men Type: ARTERIAL BLOOD SPECIMENOrdering Facility: [facility] Address: [address] [place] [address] Performed By: #### A LLBG ####[facility] [id number] [place] [id number] [place] CO2 adjusted to patient's actual temperature (Bld) [Partial pressure] 32 mmHg Low 36-46 [facility] Comment on above: Order Comment: Speci men Type: ARTERIAL BLOOD SPECIMENOrdering Facility: [facility] Address: [address] [place] [address] Performed By: #### A LLBG ####[facility] [id number] [address] [place] [address] [place] Glucose [Mass/Vol] 206 mg/dL High 60-105 [facility] Comment on above: Order Comment: Speci men Type: ARTERIAL BLOOD SPECIMENOrdering Facility: [facility] Address: [address] [place] [address] Performed By: #### A LLBG ####[facility] [id number] [place] [address] [place] HCO3 (Bld) [Moles/Vol] 17 mmol/L Low 22-26 [facility] Comment on above: Order Comment: Speci men Type: ARTERIAL BLOOD SPECIMENOrdering Facility: [facility] Address: [address] [place] [address] Performed By: #### A LLBG ####[facility] [id number] [place] [address] [place] Hematocrit (Bld) [Volume fraction] 27.6 % Low 36.0-46.0 [facility] Comment on above: Order Comment: Speci men Type: ARTERIAL BLOOD SPECIMENOrdering Facility: [facility] Address: [address] [place] [address] Performed By: #### A LLBG ####[facility] [id number] [place] [id number] [place] Hemoglobin (Bld) [Mass/Vol] 8.9 g/dL Low 11.5-15.5 [facility] Comment on above: Order Comment: Speci men Type: ARTERIAL BLOOD SPECIMENOrdering Facility: [facility] Address: [address] [place] [address] Performed By: #### A LLBG ####[facility] [id number] [place] [id number] [place] Lactate [Moles/Vol] 5.8 mmol/L High 0.5-2.2 [facility] Comment on above: Order Comment: Speci men Type: ARTERIAL BLOOD SPECIMENOrdering Facility: [facility] Address: [address] [place] [id number] Performed By: #### A LLBG ####[facility] [id number] [address] [address] [place] LITERS 2 Liters/min Normal [facility] Comment on above: Order Comment: Speci men Type: ARTERIAL BLOOD SPECIMENOrdering Facility: [facility] Address: [address] [place] [address] Performed By: #### A LLBG ####[facility] [id number] [place] [id number] [place] Methemoglobin (Bld) [Mass fraction] 0.7 % Normal 0.0-1.5 [facility] Comment on above: Order Comment: Speci men Type: ARTERIAL BLOOD SPECIMENOrdering Facility: [facility] Address: [address] [place] [address] Performed By: #### A LLBG ####[facility] [id number] [place] [id number] [place] O2 THERAPY NC = Nasal Cannula Normal [facility] Comment on above: Order Comment: Speci men Type: ARTERIAL BLOOD SPECIMENOrdering Facility: [facility] Address: [address] [place], [place] [address] Performed By: #### A LLBG ####[facility] [id number] [place] [id number] [place] Oxygen (Bld) [Partial pressure] 127 mm Hg High 85-95 [facility] Comment on above: Order Comment: Speci men Type: ARTERIAL BLOOD SPECIMENOrdering Facility: [facility] Address: [address] [place] [address] Performed By: #### A LLBG ####[facility] [id number] [address] [address] [place] Oxygen adjusted to patient's actual temperature (Bld) [Partial pressure] 124 mmHg High 85-95 [facility] Comment on above: Order Comment: Speci men Type: ARTERIAL BLOOD SPECIMENOrdering Facility: [facility] Address: [address] [place] [address] Performed By: #### A LLBG ####[facility] [id number] [address] [address] [place] Oxyhemoglobin (BldA) [Mass fraction] 97 % Normal 95-98 [facility] Comment on above: Order Comment: Speci men Type: ARTERIAL BLOOD SPECIMENOrdering Facility: [facility] Address: [address] [place] [address] Performed By: #### A LLBG ####[facility] [id number] [address] [address] [place] pH (Bld) 7.33 [pH] Low 7.35-7.45 [facility] Comment on above: Order Comment: Speci men Type: ARTERIAL BLOOD SPECIMENOrdering Facility: [facility] Address: [address] [place] [address] Performed By: #### A LLBG ####[facility] [id number] [place] [id number] [place] pH adjusted to patient's actual temperature (Bld) 7.34 Low 7.35-7.45 [facility] Comment on above: Order Comment: Speci men Type: ARTERIAL BLOOD SPECIMENOrdering Facility: [facility] Address: [address] [place] [address] Performed By: #### A LLBG ####[facility] [id number] [place] [id number] [place] Potassium [Moles/Vol] 4.1 mmol/L Normal 3.5-5.0 [facility] Comment on above: Order Comment: Speci men Type: ARTERIAL BLOOD SPECIMENOrdering Facility: [facility] Address: [address] [place] [address] Performed By: #### A LLBG ####[facility] [id number] [place] [address] [place] Sodium [Moles/Vol] 140 mmol/L Normal 136-144 [facility] Comment on above: Order Comment: Speci men Type: ARTERIAL BLOOD SPECIMENOrdering Facility: [facility] Address: [address] [place] [address] Performed By: #### A LLBG ####[facility] [id number] [place] [address] [place] ARTERIAL BLOOD GASES WITH IO NIZED MAGNESIUMon 12-12-2024 Base deficit (BldA) [Moles/Vol] -4 mmol/L Low -2-0 [facility] Comment on above: Order Comment: Speci men Type: ARTERIAL BLOOD SPECIMENOrdering Facility: [facility] Address: [address] [place] [address] Performed By: #### A LLMG ####[facility] [id number] [place] [address] [place] Calcium.ionized (Bld) [Mass/Vol] 1.14 mmol/L Normal 1.08-1.30 [facility] Comment on above: Order Comment: Speci men Type: ARTERIAL BLOOD SPECIMENOrdering Facility: [facility] Address: [address] [place] [address] Performed By: #### A LLMG ####[facility] [id number] [place] [address] [place] Calcium.ionized adjusted to pH 7.4 (BldA) [Moles/Vol] 1.12 mmol/L Normal 1.08-1.30 [facility] Comment on above: Order Comment: Speci men Type: ARTERIAL BLOOD SPECIMENOrdering Facility: [facility] Address: [address] [place] [address] Performed By: #### A LLMG ####[facility] [id number] [place] [address] [place] Carboxyhemoglobin (BldA) [Mass fraction] 2.0 % Normal 0.0-2.0 [facility] Comment on above: Order Comment: Speci men Type: ARTERIAL BLOOD SPECIMENOrdering Facility: [facility] Address: [address] [place] [address] Result Comment: Carb oxyhemoglobin Reference Range for Smokers: 2.0-8.0% Performed By: #### A LLMG ####[facility] [id number] [place] [address] [place] CO2 (Bld) [Partial pressure] 37 mm Hg Normal 36-46 [facility] Comment on above: Order Comment: Speci men Type: ARTERIAL BLOOD SPECIMENOrdering Facility: [facility] Address: [address] [place] [address] Performed By: #### A LLMG ####[facility] [id number] [place] [address] [place] CO2 adjusted to patient's actual temperature (Bld) [Partial pressure] 37 mmHg Normal 36-46 [facility] Comment on above: Order Comment: Speci men Type: ARTERIAL BLOOD SPECIMENOrdering Facility: [facility] Address: [address] [place] [address] Performed By: #### A LLMG ####[facility] [id number] [place] [address] [place] Glucose [Mass/Vol] 148 mg/dL High 60-105 [facility] Comment on above: Order Comment: Speci men Type: ARTERIAL BLOOD SPECIMENOrdering Facility: [facility] Address: [address] [place] [address] Performed By: #### A LLMG ####[facility] [id number] [place] [address] [place] HCO3 (Bld) [Moles/Vol] 20 mmol/L Low 22-26 [facility] Comment on above: Order Comment: Speci men Type: ARTERIAL BLOOD SPECIMENOrdering Facility: [facility] Address: [address] [place] [address] Performed By: #### A LLMG ####[facility] [id number] [place] [address] [place] Hematocrit (Bld) [Volume fraction] 24.9 % Low 36.0-46.0 [facility] Comment on above: Order Comment: Speci men Type: ARTERIAL BLOOD SPECIMENOrdering Facility: [facility] Address: [address] [place] [address] Performed By: #### A LLMG ####[facility] [id number] [place] [address] [place] Hemoglobin (Bld) [Mass/Vol] 8.0 g/dL Low 11.5-15.5 [facility] Comment on above: Order Comment: Speci men Type: ARTERIAL BLOOD SPECIMENOrdering Facility: [facility] Address: [address] [place] [address] Performed By: #### A LLMG ####[facility] [id number] [place] [address] [place] Lactate [Moles/Vol] 3.0 mmol/L High 0.5-2.2 [facility] Comment on above: Order Comment: Speci men Type: ARTERIAL BLOOD SPECIMENOrdering Facility: [facility] Address: [address] [place] [address] Performed By: #### A LLMG ####[facility] [id number] [place] [address] [place] Magnesium [Moles/Vol] 0.55 mmol/L Normal 0.45-0.60 [facility] Comment on above: Order Comment: Speci men Type: ARTERIAL BLOOD SPECIMENOrdering Facility: [facility] Address: [address] [place] [address] Performed By: #### A LLMG ####[facility] [id number] [place] [address] [place] Methemoglobin (Bld) [Mass fraction] 1.2 % Normal 0.0-1.5 [facility] Comment on above: Order Comment: Speci men Type: ARTERIAL BLOOD SPECIMENOrdering Facility: [facility] Address: [address] [place] [address] Performed By: #### A LLMG ####[facility] LABCLIA [id number] [place] [id number] [place] Oxygen (Bld) [Partial pressure] 144 mm Hg High 85-95 [facility] Comment on above: Order Comment: Speci men Type: ARTERIAL BLOOD SPECIMENOrdering Facility: [facility] Address: [address] [place] [address] Performed By: #### A LLMG ####[facility] [id number] [place] [address] [place] Oxygen adjusted to patient's actual temperature (Bld) [Partial pressure] 144 mmHg High 85-95 [facility] Comment on above: Order Comment: Speci men Type: ARTERIAL BLOOD SPECIMENOrdering Facility: [facility] Address: [address] [place] [address] Performed By: #### A LLMG ####[facility] [id number] [place] [id number] [place] Oxyhemoglobin (BldA) [Mass fraction] 96 % Normal 95-98 [facility] Comment on above: Order Comment: Speci men Type: ARTERIAL BLOOD SPECIMENOrdering Facility: [facility] Address: [address] [place] [address] Performed By: #### A LLMG ####[facility]CL[facility] [id number] [place] [id number] [place] pH (Bld) 7.36 [pH] Normal 7.35-7.45 [facility] Comment on above: Order Comment: Speci men Type: ARTERIAL BLOOD SPECIMENOrdering Facility: [facility] Address: [address] [place] [address] Performed By: #### A LLMG ####[facility] [id number] [address] [place] [address] [place] pH adjusted to patient's actual temperature (Bld) 7.36 Normal 7.35-7.45 [facility] Comment on above: Order Comment: Speci men Type: ARTERIAL BLOOD SPECIMENOrdering Facility: [facility] Address: [address] [place] [address] Performed By: #### A LLMG ####[facility] LABIA [id number] [place] [id number] [place] Potassium [Moles/Vol] 4.3 mmol/L Normal 3.5-5.0 [facility] Comment on above: Order Comment: Speci men Type: ARTERIAL BLOOD SPECIMENOrdering Facility: [facility] Address: [address] [place] [address] Performed By: #### A LLMG ####[facility] LABIA [id number] [place] [id number] [place] Sodium [Moles/Vol] 140 mmol/L Normal 136-144 [facility] Comment on above: Order Comment: Speci men Type: ARTERIAL BLOOD SPECIMENOrdering Facility: [facility] Address: [address] [place] [address] Performed By: #### A LLMG ####[facility] LABIA [id number] [place] [id number] [place] Base deficit (BldA) [Moles/Vol] -4 mmol/L Low -2-0 [facility] Comment on above: Order Comment: Speci men Type: ARTERIAL BLOOD SPECIMENOrdering Facility: [facility] Address: [address] [place] [address] Performed By: #### A LLMG ####[facility] LABIA [id number] [place] [address] [place] Calcium.ionized (Bld) [Mass/Vol] 1.12 mmol/L Normal 1.08-1.30 [facility] Comment on above: Order Comment: Speci men Type: ARTERIAL BLOOD SPECIMENOrdering Facility: [facility] Address: [address] [place] [address] Performed By: #### A LLMG ####[facility] [id number] [place] [address] [place] Calcium.ionized adjusted to pH 7.4 (BldA) [Moles/Vol] 1.10 mmol/L Normal 1.08-1.30 [facility] Comment on above: Order Comment: Speci men Type: ARTERIAL BLOOD SPECIMENOrdering Facility: [facility] Address: [address] [place] [address] Performed By: #### A LLMG ####[facility] [id number] [place] [address] [place] Carboxyhemoglobin (BldA) [Mass fraction] 2.0 % Normal 0.0-2.0 [facility] Comment on above: Order Comment: Speci men Type: ARTERIAL BLOOD SPECIMENOrdering Facility: [facility] Address: [address] [place] [address] Result Comment: Carb oxyhemoglobin Reference Range for Smokers: 2.0-8.0% Performed By: #### A LLMG ####[facility] [id number] [place] [address] [place] CO2 (Bld) [Partial pressure] 37 mm Hg Normal 36-46 [facility] Comment on above: Order Comment: Speci men Type: ARTERIAL BLOOD SPECIMENOrdering Facility: [facility] Address: [address] [place] [address] Performed By: #### A LLMG ####[facility]CL[facility] [id number] [place] [id number] [place] CO2 adjusted to patient's actual temperature (Bld) [Partial pressure] 37 mmHg Normal 36-46 [facility] Comment on above: Order Comment: Speci men Type: ARTERIAL BLOOD SPECIMENOrdering Facility: [facility] Address: [address] [place] [address] Performed By: #### A LLMG ####[facility]CL[facility] [id number] [place] [address] [place] Glucose [Mass/Vol] 145 mg/dL High 60-105 [facility] Comment on above: Order Comment: Speci men Type: ARTERIAL BLOOD SPECIMENOrdering Facility: [facility] Address: [address] [place] [address] Performed By: #### A LLMG ####[facility]CL[facility] [id number] [place] [address] [place] HCO3 (Bld) [Moles/Vol] 21 mmol/L Low 22-26 [facility] Comment on above: Order Comment: Speci men Type: ARTERIAL BLOOD SPECIMENOrdering Facility: [facility] Address: [address] [place] [address] Performed By: #### A LLMG ####[facility]CL[facility] [id number] [place] [id number] [place] Hematocrit (Bld) [Volume fraction] 24.5 % Low 36.0-46.0 [facility] Comment on above: Order Comment: Speci men Type: ARTERIAL BLOOD SPECIMENOrdering Facility: [facility] Address: [address] [place] [address] Performed By: #### A LLMG ####[facility] [id number] [address], [facility]95 [place] Hemoglobin (Bld) [Mass/Vol] 7.9 g/dL Low 11.5-15.5 [facility] Comment on above: Order Comment: Speci men Type: ARTERIAL BLOOD SPECIMENOrdering Facility: [facility] Address: [address] [place] [address] Performed By: #### A LLMG ####[facility]CL[facility] [id number] [place] [id number] [place] Lactate [Moles/Vol] 3.0 mmol/L High 0.5-2.2 [facility] Comment on above: Order Comment: Speci men Type: ARTERIAL BLOOD SPECIMENOrdering Facility: [facility] Address: [address] [place] [address] Performed By: #### A LLMG ####[facility] LABIA [id number] [place] [address] [place] Magnesium [Moles/Vol] 0.55 mmol/L Normal 0.45-0.60 [facility] Comment on above: Order Comment: Speci men Type: ARTERIAL BLOOD SPECIMENOrdering Facility: [facility] Address: [address] [place] [address] Performed By: #### A LLMG ####[facility] LABIA [id number] [place] [address] [place] Methemoglobin (Bld) [Mass fraction] 0.7 % Normal 0.0-1.5 [facility] Comment on above: Order Comment: Speci men Type: ARTERIAL BLOOD SPECIMENOrdering Facility: [facility] Address: [address] [place] [address] Performed By: #### A LLMG ####[facility] LABIA [id number] [place] [id number] [place] Oxygen (Bld) [Partial pressure] 183 mm Hg High 85-95 [facility] Comment on above: Order Comment: Speci men Type: ARTERIAL BLOOD SPECIMENOrdering Facility: [facility] Address: [address] [place], [place] [id number] Performed By: #### A LLMG ####[facility]CL[facility] [id number] [address] [address] [place] Oxygen adjusted to patient's actual temperature (Bld) [Partial pressure] 183 mmHg High 85-95 [facility] Comment on above: Order Comment: Speci men Type: ARTERIAL BLOOD SPECIMENOrdering Facility: [facility] Address: [address] [place] [address] Performed By: #### A LLMG ####[facility]CL[facility] [id number] [place] [id number] [place] Oxyhemoglobin (BldA) [Mass fraction] 97 % Normal 95-98 [facility] Comment on above: Order Comment: Speci men Type: ARTERIAL BLOOD SPECIMENOrdering Facility: [facility] Address: [address] [place] [address] Performed By: #### A LLMG ####[facility] LABIA [id number] [place] [address] [place] pH (Bld) 7.36 [pH] Normal 7.35-7.45 [facility] Comment on above: Order Comment: Speci men Type: ARTERIAL BLOOD SPECIMENOrdering Facility: [facility] Address: [address] [place] [address] Performed By: #### A LLMG ####[facility] LABCL[facility] [id number] [place] [address] [place] pH adjusted to patient's actual temperature (Bld) 7.36 Normal 7.35-7.45 [facility] Comment on above: Order Comment: Speci men Type: ARTERIAL BLOOD SPECIMENOrdering Facility: [facility] Address: [address] [place] [address] Performed By: #### A LLMG ####[facility]CL[facility] [id number] [place] [id number] [place] Potassium [Moles/Vol] 4.3 mmol/L Normal 3.5-5.0 [facility] Comment on above: Order Comment: Speci men Type: ARTERIAL BLOOD SPECIMENOrdering Facility: [facility] Address: [address] [place] [address] Performed By: #### A LLMG ####[facility] LABIA [id number] [place] [address] [place] Sodium [Moles/Vol] 139 mmol/L Normal 136-144 [facility] Comment on above: Order Comment: Speci men Type: ARTERIAL BLOOD SPECIMENOrdering Facility: [facility] Address: [address] [place] [address] Performed By: #### A LLMG ####[facility] LABIA [id number] [place] [address] [place] Base deficit (BldA) [Moles/Vol] -5 mmol/L Low -2-0 [facility] Comment on above: Order Comment: Speci men Type: ARTERIAL BLOOD SPECIMENOrdering Facility: [facility] Address: [address] [place] [address] Performed By: #### A LLMG ####[facility] LABIA [id number] [place] [address] [place] Calcium.ionized (Bld) [Mass/Vol] 1.20 mmol/L Normal 1.08-1.30 [facility] Comment on above: Order Comment: Speci men Type: ARTERIAL BLOOD SPECIMENOrdering Facility: [facility] Address: [address] [place] [address] Performed By: #### A LLMG ####[facility] LABIA [id number] [place] [address] [place] Calcium.ionized adjusted to pH 7.4 (BldA) [Moles/Vol] 1.17 mmol/L Normal 1.08-1.30 [facility] Comment on above: Order Comment: Speci men Type: ARTERIAL BLOOD SPECIMENOrdering Facility: [facility] Address: [address] [place] [address] Performed By: #### A LLMG ####[facility]CL[facility] [id number] [place] [address] [place] Carboxyhemoglobin (BldA) [Mass fraction] 2.1 % High 0.0-2.0 [facility] Comment on above: Order Comment: Speci men Type: ARTERIAL BLOOD SPECIMENOrdering Facility: [facility] Address: [address] [place] [address] Result Comment: Carb oxyhemoglobin Reference Range for Smokers: 2.0-8.0% Performed By: #### A LLMG ####[facility]CL[facility] [id number] [place] [address] [place] CO2 (Bld) [Partial pressure] 37 mm Hg Normal 36-46 [facility] Comment on above: Order Comment: Speci men Type: ARTERIAL BLOOD SPECIMENOrdering Facility: [facility] Address: [address] [place] [address] Performed By: #### A LLMG ####[facility]CL[facility] [id number] [address] [place] CO2 adjusted to patient's actual temperature (Bld) [Partial pressure] 37 mmHg Normal 36-46 [facility] Comment on above: Order Comment: Speci men Type: ARTERIAL BLOOD SPECIMENOrdering Facility: [facility] Address: [address] [place] [address] Performed By: #### A LLMG ####[facility]CL[facility] [id number] [place] [id number] [place] Glucose [Mass/Vol] 149 mg/dL High 60-105 [facility] Comment on above: Order Comment: Speci men Type: ARTERIAL BLOOD SPECIMENOrdering Facility: [facility] Address: [address] [place] [address] Performed By: #### A LLMG ####[facility]CL[facility] [id number] [place] [id number] [place] HCO3 (Bld) [Moles/Vol] 19 mmol/L Low 22-26 [facility] Comment on above: Order Comment: Speci men Type: ARTERIAL BLOOD SPECIMENOrdering Facility: [facility] Address: [address] [place] [address] Performed By: #### A LLMG ####[facility]CL[facility] [id number] [place] [address] [place] Hematocrit (Bld) [Volume fraction] 27.8 % Low 36.0-46.0 [facility] Comment on above: Order Comment: Speci men Type: ARTERIAL BLOOD SPECIMENOrdering Facility: [facility] Address: [address] [place] [address] Performed By: #### A LLMG ####[facility] LABIA [id number] [place] [address] [place] Hemoglobin (Bld) [Mass/Vol] 9.0 g/dL Low 11.5-15.5 [facility] Comment on above: Order Comment: Speci men Type: ARTERIAL BLOOD SPECIMENOrdering Facility: [facility] Address: [address] [place] [address] Performed By: #### A LLMG ####[facility]CL[facility] [id number] [place] [address] [place] Lactate [Moles/Vol] 3.3 mmol/L High 0.5-2.2 [facility] Comment on above: Order Comment: Speci men Type: ARTERIAL BLOOD SPECIMENOrdering Facility: [facility] Address: [address] [place] [address] Performed By: #### A LLMG ####[facility]CL[facility] [id number] [place] [address] [place] Magnesium [Moles/Vol] 0.63 mmol/L High 0.45-0.60 [facility] Comment on above: Order Comment: Speci men Type: ARTERIAL BLOOD SPECIMENOrdering Facility: [facility] Address: [address] [place], [place] [id number] Performed By: #### A LLMG ####[facility]CL[facility] [id number] [place] [id number] [place] Methemoglobin (Bld) [Mass fraction] 0.4 % Normal 0.0-1.5 [facility] Comment on above: Order Comment: Speci men Type: ARTERIAL BLOOD SPECIMENOrdering Facility: [facility] Address: [address] [place], [place] [address] Performed By: #### A LLMG ####[facility]CL[facility] [id number] [place] [id number] [place] Oxygen (Bld) [Partial pressure] 185 mm Hg High 85-95 [facility] Comment on above: Order Comment: Speci men Type: ARTERIAL BLOOD SPECIMENOrdering Facility: [facility] Address: [address] [place] [address] Performed By: #### A LLMG ####[facility]CL[facility] [id number] [place] [id number] [place] Oxygen adjusted to patient's actual temperature (Bld) [Partial pressure] 185 mmHg High 85-95 [facility] Comment on above: Order Comment: Speci men Type: ARTERIAL BLOOD SPECIMENOrdering Facility: [facility] Address: [address] [place], [place] [address] Performed By: #### A LLMG ####[facility]CL[facility] [id number] [address] [place] [address] [place] Oxyhemoglobin (BldA) [Mass fraction] 97 % Normal 95-98 [facility] Comment on above: Order Comment: Speci men Type: ARTERIAL BLOOD SPECIMENOrdering Facility: [facility] Address: [address] [place], [place] [id number] Performed By: #### A LLMG ####[facility]CL[facility] [id number] [place] [address] [place] pH (Bld) 7.35 [pH] Normal 7.35-7.45 [facility] Comment on above: Order Comment: Speci men Type: ARTERIAL BLOOD SPECIMENOrdering Facility: [facility] Address: [address] [place] [address] Performed By: #### A LLMG ####[facility]CL[facility] [id number] [place] [address] [place] pH adjusted to patient's actual temperature (Bld) 7.35 Normal 7.35-7.45 [facility] Comment on above: Order Comment: Speci men Type: ARTERIAL BLOOD SPECIMENOrdering Facility: [facility] Address: [address] [place] [address] Performed By: #### A LLMG ####[facility]CL[facility] [id number] [place] [address] [place] Potassium [Moles/Vol] 4.7 mmol/L Normal 3.5-5.0 [facility] Comment on above: Order Comment: Speci men Type: ARTERIAL BLOOD SPECIMENOrdering Facility: [facility] Address: [address] [place] [address] Performed By: #### A LLMG ####[facility] [id number] [place] [address] [place] Sodium [Moles/Vol] 138 mmol/L Normal 136-144 [facility] Comment on above: Order Comment: Speci men Type: ARTERIAL BLOOD SPECIMENOrdering Facility: [facility] Address: [address] [place] [address] Performed By: #### A LLMG ####[facility]CL[facility] [id number] [place] [id number] [place] Base deficit (BldA) [Moles/Vol] -4 mmol/L Low -2-0 [facility] Comment on above: Order Comment: Speci men Type: ARTERIAL BLOOD SPECIMENOrdering Facility: [facility] Address: [address] [place] [address] Performed By: #### A LLMG ####[facility] [id number] [place] [address] [place] Calcium.ionized (Bld) [Mass/Vol] 1.23 mmol/L Normal 1.08-1.30 [facility] Comment on above: Order Comment: Speci men Type: ARTERIAL BLOOD SPECIMENOrdering Facility: [facility] Address: [address] [place] [address] Performed By: #### A LLMG ####[facility] [id number] [place] [address] [place] Calcium.ionized adjusted to pH 7.4 (BldA) [Moles/Vol] 1.20 mmol/L Normal 1.08-1.30 [facility] Comment on above: Order Comment: Speci men Type: ARTERIAL BLOOD SPECIMENOrdering Facility: [facility] Address: [address] [place] [address] Performed By: #### A LLMG ####[facility] [id number] [place] [address] [place] Carboxyhemoglobin (BldA) [Mass fraction] 2.1 % High 0.0-2.0 [facility] Comment on above: Order Comment: Speci men Type: ARTERIAL BLOOD SPECIMENOrdering Facility: [facility] Address: [address] [place] [address] Result Comment: Carb oxyhemoglobin Reference Range for Smokers: 2.0-8.0% Performed By: #### A LLMG ####[facility] [id number] [place] [address] [place] CO2 (Bld) [Partial pressure] 37 mm Hg Normal 36-46 [facility] Comment on above: Order Comment: Speci men Type: ARTERIAL BLOOD SPECIMENOrdering Facility: [facility] Address: [address] [place] [address] Performed By: #### A LLMG ####[facility]CL[facility] [id number] [place] [address] [place] CO2 adjusted to patient's actual temperature (Bld) [Partial pressure] 37 mmHg Normal 36-46 [facility] Comment on above: Order Comment: Speci men Type: ARTERIAL BLOOD SPECIMENOrdering Facility: [facility] Address: [address] [place] [address] Performed By: #### A LLMG ####[facility] [id number] [place] [address] [place] Glucose [Mass/Vol] 154 mg/dL High 60-105 [facility] Comment on above: Order Comment: Speci men Type: ARTERIAL BLOOD SPECIMENOrdering Facility: [facility] Address: [address] [place] [address] Performed By: #### A LLMG ####[facility] [id number] [place] [address] [place] HCO3 (Bld) [Moles/Vol] 20 mmol/L Low 22-26 [facility] Comment on above: Order Comment: Speci men Type: ARTERIAL BLOOD SPECIMENOrdering Facility: [facility] Address: [address] [place] [address] Performed By: #### A LLMG ####[facility] [id number] [place] [address] [place] Hematocrit (Bld) [Volume fraction] 29.2 % Low 36.0-46.0 [facility] Comment on above: Order Comment: Speci men Type: ARTERIAL BLOOD SPECIMENOrdering Facility: [facility] Address: [address] [place] [address] Performed By: #### A LLMG ####[facility] [id number] [place] [address] [place] Hemoglobin (Bld) [Mass/Vol] 9.4 g/dL Low 11.5-15.5 [facility] Comment on above: Order Comment: Speci men Type: ARTERIAL BLOOD SPECIMENOrdering Facility: [facility] Address: [address] [place] [address] Performed By: #### A LLMG ####[facility] [id number] [place] [address] [place] Lactate [Moles/Vol] 2.2 mmol/L Normal 0.5-2.2 [facility] Comment on above: Order Comment: Speci men Type: ARTERIAL BLOOD SPECIMENOrdering Facility: [facility] Address: [address] [place] [address] Performed By: #### A LLMG ####[facility] [id number] [place] [address] [place] Magnesium [Moles/Vol] 0.67 mmol/L High 0.45-0.60 [facility] Comment on above: Order Comment: Speci men Type: ARTERIAL BLOOD SPECIMENOrdering Facility: [facility] Address: [address] [place] [address] Performed By: #### A LLMG ####[facility] [id number] [place] [address] [place] Methemoglobin (Bld) [Mass fraction] 0.4 % Normal 0.0-1.5 [facility] Comment on above: Order Comment: Speci men Type: ARTERIAL BLOOD SPECIMENOrdering Facility: [facility] Address: [address] [place] [address] Performed By: #### A LLMG ####[facility] [id number] [place] [id number] [place] Oxygen (Bld) [Partial pressure] 209 mm Hg High 85-95 [facility] Comment on above: Order Comment: Speci men Type: ARTERIAL BLOOD SPECIMENOrdering Facility: [facility] Address: [address] [place] [address] Performed By: #### A LLMG ####[facility] [id number] [place] [address] [place] Oxygen adjusted to patient's actual temperature (Bld) [Partial pressure] 209 mmHg High 85-95 [facility] Comment on above: Order Comment: Speci men Type: ARTERIAL BLOOD SPECIMENOrdering Facility: [facility] Address: [address] [place] [address] Performed By: #### A LLMG ####[facility] [id number] [place] [address] [place] Oxyhemoglobin (BldA) [Mass fraction] 98 % Normal 95-98 [facility] Comment on above: Order Comment: Speci men Type: ARTERIAL BLOOD SPECIMENOrdering Facility: [facility] [facility] Address: [address] [place] [address] Performed By: #### A LLMG ####[facility] [id number] [place] [address] [place] pH (Bld) 7.35 [pH] Normal 7.35-7.45 [facility] Comment on above: Order Comment: Speci men Type: ARTERIAL BLOOD SPECIMENOrdering Facility: [facility] Address: [address] [place] [address] Performed By: #### A LLMG ####[facility] LAB[facility] [id number] [place] [address] [place] pH adjusted to patient's actual temperature (Bld) 7.35 Normal 7.35-7.45 [facility] Comment on above: Order Comment: Speci men Type: ARTERIAL BLOOD SPECIMENOrdering Facility: [facility] Address: [address] [place] [address] Performed By: #### A LLMG ####[facility] [id number] [place] [id number] [place] Potassium [Moles/Vol] 4.7 mmol/L Normal 3.5-5.0 [facility] Comment on above: Order Comment: Speci men Type: ARTERIAL BLOOD SPECIMENOrdering Facility: [facility] Address: [address] [place] [address] Performed By: #### A LLMG ####[facility] [id number] [place] [address] [place] Sodium [Moles/Vol] 136 mmol/L Normal 136-144 [facility] Comment on above: Order Comment: Speci men Type: ARTERIAL BLOOD SPECIMENOrdering Facility: [facility] Address: [address] [place] [address] Performed By: #### A LLMG ####[facility] [id number] [place] [address] [place] Base deficit (BldA) [Moles/Vol] -4 mmol/L Low -2-0 [facility] Comment on above: Order Comment: Speci men Type: ARTERIAL BLOOD SPECIMENOrdering Facility: [facility] Address: [address] [place] [address] Performed By: #### A LLMG ####[facility] [id number] [place] [address] [place] Calcium.ionized (Bld) [Mass/Vol] 1.28 mmol/L Normal 1.08-1.30 [facility] Comment on above: Order Comment: Speci men Type: ARTERIAL BLOOD SPECIMENOrdering Facility: [facility] Address: [address] [place] [address] Performed By: #### A LLMG ####[facility] [id number] [place] [address] [place] Calcium.ionized adjusted to pH 7.4 (BldA) [Moles/Vol] 1.22 mmol/L Normal 1.08-1.30 [facility] Comment on above: Order Comment: Speci men Type: ARTERIAL BLOOD SPECIMENOrdering Facility: [facility] Address: [address] [place] [address] Performed By: #### A LLMG ####[facility] [id number] [place] [address] [place] Carboxyhemoglobin (BldA) [Mass fraction] 1.9 % Normal 0.0-2.0 [facility] Comment on above: Order Comment: Speci men Type: ARTERIAL BLOOD SPECIMENOrdering Facility: [facility] Address: [address] [place] [address] Result Comment: Carb oxyhemoglobin Reference Range for Smokers: 2.0-8.0% Performed By: #### A LLMG ####[facility] [id number] [place] [address] [place] CO2 (Bld) [Partial pressure] 43 mm Hg Normal 36-46 [facility] Comment on above: Order Comment: Speci men Type: ARTERIAL BLOOD SPECIMENOrdering Facility: [facility] Address: [address] [place] [address] Performed By: #### A LLMG ####[facility] [id number] [place] [address] [place] CO2 adjusted to patient's actual temperature (Bld) [Partial pressure] 43 mmHg Normal 36-46 [facility] Comment on above: Order Comment: Speci men Type: ARTERIAL BLOOD SPECIMENOrdering Facility: [facility] Address: [address] [place] [address] Performed By: #### A LLMG ####[facility] [id number] [place] [address] [place] Glucose [Mass/Vol] 109 mg/dL High 60-105 [facility] Comment on above: Order Comment: Speci men Type: ARTERIAL BLOOD SPECIMENOrdering Facility: [facility] Address: [address] [place] [address] Performed By: #### A LLMG ####[facility] [id number] [address] [address] [place] HCO3 (Bld) [Moles/Vol] 22 mmol/L Normal 22-26 [facility] Comment on above: Order Comment: Speci men Type: ARTERIAL BLOOD SPECIMENOrdering Facility: [facility] Address: [address] [place] [address] Performed By: #### A LLMG ####[facility] [id number] [place] [address] [place] Hematocrit (Bld) [Volume fraction] 27.5 % Low 36.0-46.0 [facility] Comment on above: Order Comment: Speci men Type: ARTERIAL BLOOD SPECIMENOrdering Facility: [facility] Address: [address] [place] [address] Performed By: #### A LLMG ####[facility] [id number] [place] [address] [place] Hemoglobin (Bld) [Mass/Vol] 8.9 g/dL Low 11.5-15.5 [facility] Comment on above: Order Comment: Speci men Type: ARTERIAL BLOOD SPECIMENOrdering Facility: [facility] Address: [address] [place] [address] Performed By: #### A LLMG ####[facility] [id number] [place] [address] [place] Lactate [Moles/Vol] 1.5 mmol/L Normal 0.5-2.2 [facility] Comment on above: Order Comment: Speci men Type: ARTERIAL BLOOD SPECIMENOrdering Facility: [facility] Address: [address] [place] [address] Performed By: #### A LLMG ####[facility] [id number] [place] [id number] [place] Magnesium [Moles/Vol] 0.67 mmol/L High 0.45-0.60 [facility] Comment on above: Order Comment: Speci men Type: ARTERIAL BLOOD SPECIMENOrdering Facility: [facility] Address: [address] [place] [address] Performed By: #### A LLMG ####[facility] [id number] [address] [address] [place] Methemoglobin (Bld) [Mass fraction] 1.3 % Normal 0.0-1.5 [facility] Comment on above: Order Comment: Speci men Type: ARTERIAL BLOOD SPECIMENOrdering Facility: [facility] Address: [address] [place] [address] Performed By: #### A LLMG ####[facility] [id number] [place] [id number] [place] Oxygen (Bld) [Partial pressure] 178 mm Hg High 85-95 [facility] Comment on above: Order Comment: Speci men Type: ARTERIAL BLOOD SPECIMENOrdering Facility: [facility] Address: [address] [place] [address] Performed By: #### A LLMG ####[facility] [id number] [place] [id number] [place] Oxygen adjusted to patient's actual temperature (Bld) [Partial pressure] 178 mmHg High 85-95 [facility] Comment on above: Order Comment: Speci men Type: ARTERIAL BLOOD SPECIMENOrdering Facility: [facility] Address: [address] [place] [address] Performed By: #### A LLMG ####[facility] [id number] [place] [id number] [place] Oxyhemoglobin (BldA) [Mass fraction] 96 % Normal 95-98 [facility] Comment on above: Order Comment: Speci men Type: ARTERIAL BLOOD SPECIMENOrdering Facility: [facility] Address: [address] [place], [place] [address] Performed By: #### A LLMG ####[facility] [id number] [address] [address] [place] pH (Bld) 7.32 [pH] Low 7.35-7.45 [facility] Comment on above: Order Comment: Speci men Type: ARTERIAL BLOOD SPECIMENOrdering Facility: [facility] Address: [address] [place] [address] Performed By: #### A LLMG ####[facility] [id number] [address] [address] [place] pH adjusted to patient's actual temperature (Bld) 7.32 Low 7.35-7.45 [facility] Comment on above: Order Comment: Speci men Type: ARTERIAL BLOOD SPECIMENOrdering Facility: [facility] Address: [address] [place] [address] Performed By: #### A LLMG ####[facility] [id number] [place] [id number] [place] Potassium [Moles/Vol] 4.2 mmol/L Normal 3.5-5.0 [facility] Comment on above: Order Comment: Speci men Type: ARTERIAL BLOOD SPECIMENOrdering Facility: [facility] Address: [address] [place] [address] Performed By: #### A LLMG ####[facility] [id number] [place] [id number] [place] Sodium [Moles/Vol] 138 mmol/L Normal 136-144 [facility] Comment on above: Order Comment: Speci men Type: ARTERIAL BLOOD SPECIMENOrdering Facility: [facility] Address: [address] [place] [address] Performed By: #### A LLMG ####[facility] [id number] [address] [address] [place] BRIEF OP NOTon 12-12-2024 BRIEF OP NOT Normal [facility] CASE MANAGEMon 12-12-2024 CASE MANAGEM Normal [facility] CBC panel Auto (Bld)on 12-12 Erythrocyte distribution width (RBC) [Ratio] 22.2 % High 11.5-15.0 [facility] Comment on above: Order Comment: Speci men Type: BLOOD SPECIMENOrdering Facility: [facility] Address: [address] [place] [address] Performed By: #### 5 8410-2 ####[facility] [id number] [place] [address] [place] Hematocrit (Bld) [Volume fraction] 28.3 % Low 36.0-46.0 [facility] Comment on above: Order Comment: Speci men Type: BLOOD SPECIMENOrdering Facility: [facility] Address: [address] [place] [address] Performed By: #### 5 8410-2 ####[facility] [id number] [place] [address] [place] Hemoglobin (Bld) [Mass/Vol] 8.6 g/dL Low 11.5-15.5 [facility] Comment on above: Order Comment: Speci men Type: BLOOD SPECIMENOrdering Facility: [facility] Address: [address] [place] [address] Performed By: #### 5 8410-2 ####[facility] [id number] [place] [address] [place] MCH (RBC) [Entitic mass] 26.4 pg Normal 26.0-34.0 [facility] Comment on above: Order Comment: Speci men Type: BLOOD SPECIMENOrdering Facility: [facility] Address: [address] [place] [address] Performed By: #### 5 8410-2 ####[facility] [id number] [place] [id number] [place] MCHC (RBC) [Mass/Vol] 30.4 g/dL Low 30.5-36.0 [facility] Comment on above: Order Comment: Speci men Type: BLOOD SPECIMENOrdering Facility: [facility] Address: [address] [place] [address] Performed By: #### 5 8410-2 ####[facility] [id number] [place] [address] [place] MCV (RBC) [Entitic vol] 86.8 fL Normal 80.0-100.0 [facility] Comment on above: Order Comment: Speci men Type: BLOOD SPECIMENOrdering Facility: [facility] Address: [address] [place] [address] Performed By: #### 5 8410-2 ####[facility] [id number] [place] [address] [place] Nucleated RBC (Bld) [#/Vol] 0.02 10*3/uL High <0.01 [facility] Comment on above: Order Comment: Speci men Type: BLOOD SPECIMENOrdering Facility: [facility] Address: [address] [place] [address] Performed By: #### 5 8410-2 ####[facility] [id number] [place] [address] [place] Platelet mean volume (Bld) [Entitic vol] 9.3 fL Normal 9.0-12.7 [facility] Comment on above: Order Comment: Speci men Type: BLOOD SPECIMENOrdering Facility: [facility] Address: [address] [place] [address] Performed By: #### 5 8410-2 ####[facility] [id number] [place] [address] [place] Platelets (Bld) [#/Vol] 292 10*3/uL Normal 150-400 [facility] Comment on above: Order Comment: Speci men Type: BLOOD SPECIMENOrdering Facility: [facility] Address: [address] [place] [address] Performed By: #### 5 8410-2 ####[facility] [id number] [place] [id number] [place] RBC (Bld) [#/Vol] 3.26 10*6/uL Low 3.90-5.20 [facility] Comment on above: Order Comment: Speci men Type: BLOOD SPECIMENOrdering Facility: [facility] Address: [address] [place] [address] Performed By: #### 5 8410-2 ####[facility] [id number] [place] [id number] [place] WBC (Bld) [#/Vol] 6.93 10*3/uL Normal 3.70-11.00 [facility] Comment on above: Order Comment: Speci men Type: BLOOD SPECIMENOrdering Facility: [facility] Address: [address] [place] [address] Performed By: #### 5 8410-2 ####[facility] [id number] [place] [id number] [place] Comprehensive metabolic 2000 panelon 12-12-2024 Albumin [Mass/Vol] 3.2 g/dL Low 3.9-4.9 [facility] Comment on above: Order Comment: Speci men Type: BLOOD SPECIMENOrdering Facility: [facility] Address: [address] [place] [address] Performed By: #### 2 4323-8, , 277-1 ####[facility] [id number] [place] [id number] [place] ALP [Catalytic activity/Vol] 173 U/L High 34-123 [facility] Comment on above: Order Comment: Speci men Type: BLOOD SPECIMENOrdering Facility: [facility] Address: [address] [place] [address] Performed By: #### 2 4323-8, , 2776-06 ####[facility] [id number] [address] [address] [place] ALT [Catalytic activity/Vol] 41 U/L High 7-38 [facility] Comment on above: Order Comment: Speci men Type: BLOOD SPECIMENOrdering Facility: [facility] Address: [address] [place] [address] Performed By: #### 2 4323-8, , 2776-06 ####[facility] [id number] [address] [address] [place] Anion gap [Moles/Vol] 12 mmol/L Normal 8-15 [facility] Comment on above: Order Comment: Speci men Type: BLOOD SPECIMENOrdering Facility: [facility] Address: [address] [place] [address] Performed By: #### 2 4323-8, , 2776-06 ####[facility] [id number] [place] [id number] [place] AST [Catalytic activity/Vol] 33 U/L Normal 13-35 [facility] Comment on above: Order Comment: Speci men Type: BLOOD SPECIMENOrdering Facility: [facility] Address: [address] [place] [address] Result Comment: Resu lts may be falsely increased due to interference from hemolysis. Suggest reorder as clinically indicated. Performed By: #### 2 4323-8, , 2776-06 ####[facility] [id number] [place] [id number] [place] Bilirubin [Mass/Vol] 0.5 mg/dL Normal 0.2-1.3 [facility] Comment on above: Order Comment: Speci men Type: BLOOD SPECIMENOrdering Facility: [facility] Address: [address] [place] [address] Performed By: #### 2 43238, , 2776-06 ####[facility] [id number] [address] [address] [place] Calcium [Mass/Vol] 8.7 mg/dL Normal 8.5-10.2 [facility] Comment on above: Order Comment: Speci men Type: BLOOD SPECIMENOrdering Facility: [facility] Address: [address] [place] [address] Performed By: #### 2 432-8, , 2776-06 ####[facility] [id number] [place] [id number] [place] Chloride [Moles/Vol] 105 mmol/L Normal 98-107 [facility] Comment on above: Order Comment: Speci men Type: BLOOD SPECIMENOrdering Facility: [facility] Address: [address] [place] [address] Performed By: #### 2 432-8, , 2776-06 ####[facility] [id number] [place] [id number] [place] CO2 [Moles/Vol] 20 mmol/L Low 22-30 [facility] Comment on above: Order Comment: Speci men Type: BLOOD SPECIMENOrdering Facility: [facility] Address: [address] [place] [address] Performed By: #### 2 4323-8, , 2776-06 ####[facility] [id number] [place] [id number] [place] Creatinine [Mass/Vol] 0.82 mg/dL Normal 0.58-0.96 [facility] Comment on above: Order Comment: Speci men Type: BLOOD SPECIMENOrdering Facility: [facility] Address: [address] [place], [place] [address] Performed By: #### 2 4323-8, , 2776-06 ####[facility] [id number] [place] [address] [place] Creatinine and Glomerular filtration rate.predicted panel (S/P/Bld) 92 mL/min/1.73m??? Normal >=60 [facility] Comment on above: Order Comment: Dora finch Type: BLOOD SPECIMENOrdering Facility: [facility] Address: [address] [place] [address] Result Comment: Zeny mated Glomerular Filtration Rate [...] actual GFR. Performed By: #### 2 4323-8, 23651-7, 7- ####[facility] [id number] [place] [address] [place] Glucose [Mass/Vol] 100 mg/dL High 74-99 [facility] Comment on above: Order Comment: Dora finch Type: BLOOD SPECIMENOrdering Facility: [facility] Address: [address] [place] [address] Result Comment: The [place] [employer] (ADA) provides guidance for cutoff [...] Standards of Medical Care in Diabetes 2016, [place] [employer]. Diabetes Care. 2016.39(Suppl 1). Performed By: #### 2 4323-8, 54939-1, 2777-1 ####[facility] [id number] [address] [address] [place] Potassium [Moles/Vol] 4.4 mmol/L Normal 3.7-5.1 [facility] Comment on above: Order Comment: Speci men Type: BLOOD SPECIMENOrdering Facility: [facility] Address: [address] [place] [address] Performed By: #### 2 4323-8, , 2776-06 ####[facility] [id number] [place] [id number] [place] Protein [Mass/Vol] 6.4 g/dL Normal 6.3-8.0 [facility] Comment on above: Order Comment: Speci men Type: BLOOD SPECIMENOrdering Facility: [facility] Address: [address] [place] [address] Performed By: #### 2 432-8, , 2776-06 ####[facility] [id number] [place] [id number] [place] Sodium [Moles/Vol] 137 mmol/L Normal 136-144 [facility] Comment on above: Order Comment: Speci men Type: BLOOD SPECIMENOrdering Facility: [facility] Address: [address] [place] [address] Performed By: #### 2 432-8, , 2776-06 ####[facility] [id number] [address], [facility] [place] Urea nitrogen [Mass/Vol] 20 mg/dL Normal 7-21 [facility] Comment on above: Order Comment: Speci men Type: BLOOD SPECIMENOrdering Facility: [facility] Address: [address] [place], [place] [address] Performed By: #### 2 4323-8, , 2776-06 ####[facility] [id number] [address] [place] [address] [place] Lactate (Bld) [Moles/Vol]on 12-12-2024 Lactate [Moles/Vol] 5.2 mmol/L High 0.5-2.2 [facility] Comment on above: Order Comment: Speci men Type: BLOOD SPECIMENOrdering Facility: [facility] Address: [address] [place] [address] Performed By: #### 3 2693-4 ####[facility] [id number] [place] [address] [place] Magnesium SerPl-mCncon 12-12 Magnesium [Mass/Vol] 1.8 mg/dL Normal 1.7-2.3 [facility] Comment on above: Order Comment: Speci men Type: BLOOD SPECIMENOrdering Facility: [facility] Address: [address] [place] [address] Performed By: #### 2 4323-8, 93643-2, 2777-1 ####[facility] [id number] [place] [address] [place] OPERATIVE NOon 12-12-2024 OPERATIVE NO Normal [facility] PTT, ANTICOAGULANT THERAPYon 12-12-2024 aPTT Coag (PPP) [Time] 22.2 s Low 23.0-32.4 [facility] Comment on above: Order Comment: Speci men Type: BLOOD SPECIMENOrdering Facility: [facility] Address: [address] [place] [address] Performed By: #### P TTAC ####[facility] [id number] [place] [address] [place] Pathology biopsy report Stan (Tiss)on 12-12-2024 AP DISCLAIMER Normal [facility] Comment on above: Order Comment: Speci men Type: TISSUE SPECIMENOrdering Facility: [facility] Address: [address] [place] [address] Result Comment: Billie cardenas Developed Test (LDT) Disclaimer:Performance characteristics of immunohistochemical, immunofluorescent, and chromogenic in-situ hybridization tests have been determined by the performing laboratory within [facility] Morales Pathology and Laboratory Medicine Department ([facility], [facility], [facility], [facility], [facility], [facility], or [facility]) in a manner consistent with CLIA requirements. One or more of these tests may not have been cleared or approved by the FDA. [facility] is regulated under CLIA as qualified to perform high-complexity testing. These tests are used for clinical purposes. These should not be regarded as investigational or for research. Positive and negative controls stain appropriately. Performed By: #### 6 6121-5 ####[facility] [id number] [address] [place] CASE REPORT Normal [facility] Comment on above: Order Comment: Speci men Type: TISSUE SPECIMENOrdering Facility: [facility] Address: [address] [place] [address] Result Comment: Surg ical Pathology Report Case: [id number] Provider: Kirit Devine MD Collected: 12/12/2024 10:48 AMOrdering Location: Admitting Received: 12/12/2024 03:06 PMPathologist: Kae Manning MDSpecimens: A) - Omentum, Resection, omentum B) - Small Bowel, Ileostomy, Loop ileostomy C) - Soft Tissue (Not otherwise specified), Peristomal Fat Performed By: #### 6 6121-5 ####[facility] [id number] [place] [id number] [place] CLINICAL HISTORY Normal [facility] Comment on above: Order Comment: Speci men Type: TISSUE SPECIMENOrdering Facility: [facility] Address: [address] [place] [address] Result Comment: Pre- op diagnosis:High output ileostomy (HCC) [R19.8, Z93.2] Performed By: #### 6 6121-5 ####[facility] [id number] [address] [place] FINAL DIAGNOSIS Normal [facility] Comment on above: Order Comment: Speci men Type: TISSUE SPECIMENOrdering Facility: [facility] Address: [address] [place] [address] Result Comment: A. O mentum, omentectomy:- Benign mature adipose tissue.B. Ileum, ileostomy takedown:- Enterocutaneous tissue with histologic features consistent with an ileostomy site.C. Soft tissue, peristomal fat, excision:- Fibroadipose tissue with fat necrosis. at 1624 EDT Performed By: #### 6 6121-5 ####[facility] [id number] [address] OF [facility] FINAL PERFORMING LAB Normal [facility] Comment on above: Order Comment: Speci men Type: TISSUE SPECIMENOrdering Facility: [facility] Address: [address] [place] [address] Result Comment: Diag nostic interpretation performed at: [facility], [address] [place] [address] CLIA# [id number] Director: Jaison Lema MD Performed By: #### 6 6121-5 ####[facility] LABCLIA [id number] [address] OF [place] DESCRIPTION Normal [facility] Comment on above: Order Comment: Speci men Type: TISSUE SPECIMENOrdering Facility: [facility] Address: [address] [place] [address] Result Comment: A. O mentum, ResectionReceived fresh labeled omentum is a 15.0 x 14.0 x 1.0 cm aggregate of cunha-yellow, lobulated soft tissue consistent with omentum. No nodules are areas of induration are seen. Sectioning reveals yellow, homogeneous cut surfaces. Digital Producer section submitted in A1.B. Small Bowel, IleostomyReceived [...] polyps or mass lesions are identified. A human resources representative section of the ostomy site is submitted in B1.C. Soft Tissue (Not otherwise specified)Received fresh labeled peristomal fat is a 4.0 x 3.5 x 2.0 cm cunha-yellow lobulated soft tissue fragment. Sectioning reveals cunha-yellow homogenous cut surfaces. No nodules or areas of induration are grossly appreciated. Digital Producer section submitted in C1.Gross examination performed at [facility], [address] [place], [place] [address]MSL/AREILA 12/12/24 3:23 PM Performed By: #### 6 6121-5 ####[facility] LABIA [id number] [place] [address] [place] Phosphate SerPl-mCncon 12-12 Phosphate [Mass/Vol] 3.7 mg/dL Normal 2.7-4.8 [facility] Comment on above: Order Comment: Speci men Type: BLOOD SPECIMENOrdering Facility: [facility] Address: [address] [place] [address] Performed By: #### 2 4323-8, 16089-0, 2777-1 ####[facility] [id number] [place] [address] [place] CBC panel Auto (Bld)on 12-11 Erythrocyte distribution width (RBC) [Ratio] 22.3 % High 11.5-15.0 [facility] Comment on above: Order Comment: Speci men Type: BLOOD SPECIMENOrdering Facility: [facility] Address: [address] [place] [address] Performed By: #### 5 8410-2 ####[facility] LABIA [id number] [place] [id number] [place] Hematocrit (Bld) [Volume fraction] 26.7 % Low 36.0-46.0 [facility] Comment on above: Order Comment: Speci men Type: BLOOD SPECIMENOrdering Facility: [facility] Address: [address] [place] [address] Performed By: #### 5 8410-2 ####[facility] LABIA [id number] [place] [address] [place] Hemoglobin (Bld) [Mass/Vol] 8.3 g/dL Low 11.5-15.5 [facility] Comment on above: Order Comment: Speci men Type: BLOOD SPECIMENOrdering Facility: [facility] Address: [address] [place] [address] Performed By: #### 5 8410-2 ####[facility] [id number] [place] [address] [place] MCH (RBC) [Entitic mass] 28.0 pg Normal 26.0-34.0 [facility] Comment on above: Order Comment: Speci men Type: BLOOD SPECIMENOrdering Facility: [facility] Address: [address] [place] [address] Performed By: #### 5 8410-2 ####[facility] [id number] [address] [place] MCHC (RBC) [Mass/Vol] 31.1 g/dL Normal 30.5-36.0 [facility] Comment on above: Order Comment: Speci men Type: BLOOD SPECIMENOrdering Facility: [facility] Address: [address] [place] [address] Performed By: #### 5 8410-2 ####[facility] [id number] [place] [address] [place] MCV (RBC) [Entitic vol] 90.2 fL Normal 80.0-100.0 [facility] Comment on above: Order Comment: Speci men Type: BLOOD SPECIMENOrdering Facility: [facility] Address: [address] [place] [address] Performed By: #### 5 8410-2 ####[facility]CLIA [id number] [facility] [address] [place] [address] [place] Nucleated RBC (Bld) [#/Vol] 0.02 10*3/uL High <0.01 [facility] Comment on above: Order Comment: Speci men Type: BLOOD SPECIMENOrdering Facility: [facility] Address: [address] [place] [address] Performed By: #### 5 8410-2 ####[facility] LABIA [id number] [address], [facility]95 [place] Platelet mean volume (Bld) [Entitic vol] 11.2 fL Normal 9.0-12.7 [facility] Comment on above: Order Comment: Speci men Type: BLOOD SPECIMENOrdering Facility: [facility] Address: [address] [place] [address] Performed By: #### 5 8410-2 ####[facility] LABIA [id number] [address], [facility]95 [place] Platelets (Bld) [#/Vol] 301 10*3/uL Normal 150-400 [facility] Comment on above: Order Comment: Speci men Type: BLOOD SPECIMENOrdering Facility: [facility] Address: [address] [place] [address] Performed By: #### 5 8410-2 ####[facility] LABIA [id number] [address], [facility]95 [place] RBC (Bld) [#/Vol] 2.96 10*6/uL Low 3.90-5.20 [facility] Comment on above: Order Comment: Speci men Type: BLOOD SPECIMENOrdering Facility: [facility] Address: [address] [place] [address] Performed By: #### 5 8410-2 ####[facility] LABIA [id number] [address], [facility]95 [place] WBC (Bld) [#/Vol] 6.78 10*3/uL Normal 3.70-11.00 [facility] Comment on above: Order Comment: Speci men Type: BLOOD SPECIMENOrdering Facility: [facility] Address: [address] [place] [address] Performed By: #### 5 8410-2 ####[facility] LABIA [id number] [place] [address] [place] CONSULT PROGon 12-11-2024 CONSULT PROG Normal [facility] CONSULT PROG Normal [facility] CONSULT PROG Normal [facility] Comprehensive metabolic 2000 panelon 12-11-2024 Albumin [Mass/Vol] 3.5 g/dL Low 3.9-4.9 [facility] Comment on above: Order Comment: Speci men Type: BLOOD SPECIMENOrdering Facility: [facility] Address: [address] [place] [address] Performed By: #### 2 4323-8, 79954-7, 277-1, 2570-8 ####[facility] LABIA [id number] [place] [address] [place] ALP [Catalytic activity/Vol] 205 U/L High 34-123 [facility] Comment on above: Order Comment: Speci men Type: BLOOD SPECIMENOrdering Facility: [facility] Address: [address] [place] [address] Performed By: #### 2 4323-8, 09737-2, 277-1, 257-8 ####[facility] LABIA [id number] [place] [id number] [place] ALT [Catalytic activity/Vol] 45 U/L High 7-38 [facility] Comment on above: Order Comment: Speci men Type: BLOOD SPECIMENOrdering Facility: [facility] Address: [address] [place] [address] Performed By: #### 2 4323-8, , 2776-06, 2571-01 ####[facility] LABCLIA [id number] [address] [address] [place] Anion gap [Moles/Vol] 12 mmol/L Normal 8-15 [facility] Comment on above: Order Comment: Speci men Type: BLOOD SPECIMENOrdering Facility: [facility] Address: [address] [place] [address] Performed By: #### 2 4323-8, , 2776-06, 2571-01 ####[facility] LABIA [id number] [place] [address] [place] AST [Catalytic activity/Vol] 38 U/L High 13-35 [facility] Comment on above: Order Comment: Speci men Type: BLOOD SPECIMENOrdering Facility: [facility] Address: [address] [place] [address] Performed By: #### 2 4323-8, , 2776-06, 2571-01 ####[facility] LABIA [id number] [place] [address] [place] Bilirubin [Mass/Vol] 0.5 mg/dL Normal 0.2-1.3 [facility] Comment on above: Order Comment: Speci men Type: BLOOD SPECIMENOrdering Facility: [facility] Address: [address] [place], [place] [address] Performed By: #### 2 4323-8, , 2776-06, 2571-01 ####[facility] LABIA [id number] [address] [address] [place] Calcium [Mass/Vol] 9.3 mg/dL Normal 8.5-10.2 [facility] Comment on above: Order Comment: Speci men Type: BLOOD SPECIMENOrdering Facility: [facility] Address: [address] [place], [place] [address] Performed By: #### 2 4323-8, , 2776-06, 2571-01 ####[facility] LABCLIA [id number] [address] [address] [place] Chloride [Moles/Vol] 102 mmol/L Normal 98-107 [facility] Comment on above: Order Comment: Speci men Type: BLOOD SPECIMENOrdering Facility: [facility] Address: [address] [place] [address] Performed By: #### 2 4323-8, , 2776-06, 2571-01 ####[facility] LABIA [id number] [place] [address] [place] CO2 [Moles/Vol] 24 mmol/L Normal 22-30 [facility] Comment on above: Order Comment: Speci men Type: BLOOD SPECIMENOrdering Facility: [facility] Address: [address] [place] [address] Performed By: #### 2 4323-8, 72386-0, 2776-06, 2571-01 ####[facility] LABIA [id number] [place] [address] [place] Creatinine [Mass/Vol] 0.77 mg/dL Normal 0.58-0.96 [facility] Comment on above: Order Comment: Speci men Type: BLOOD SPECIMENOrdering Facility: [facility] Address: [address] [place] [address] Performed By: #### 2 4323-8, 21811-4, 2776-06, 2571-01 ####[facility] LABIA [id number] [address] [address] [place] Creatinine and Glomerular filtration rate.predicted panel (S/P/Bld) 100 mL/min/1.73m??? Normal >=60 [facility] Comment on above: Order Comment: Speci men Type: BLOOD SPECIMENOrdering Facility: [facility] Address: [address] [place] [address] Result Comment: Zeny mated Glomerular Filtration Rate [...] By: #### 2 4323-8, , 2776-06, 2571-01 ####[facility] LABIA [id number] [address] [address] [place] Glucose [Mass/Vol] 118 mg/dL High 74-99 [facility] Comment on above: Order Comment: Dora finch Type: BLOOD SPECIMENOrdering Facility: [facility] Address: [address] [place] [id number] Result Comment: The [place] Diabetes Association (ADA) provides guidance for cutoff [...] Standards of Medical Care in Diabetes 2016, [place] [employer]. Diabetes Care. 2016.39(Suppl 1). Performed By: #### 2 4323-8, , 2776-06, 2571-01 ####[facility] LABIA [id number] [address] [address] [place] Potassium [Moles/Vol] 4.0 mmol/L Normal 3.7-5.1 [facility] Comment on above: Order Comment: Dora fnich Type: BLOOD SPECIMENOrdering Facility: [facility] Address: [address] [place] [address] Performed By: #### 2 4323-8, , 2776-06, 8 ####[facility] LABIA [id number] [address] [address] [place] Protein [Mass/Vol] 7.1 g/dL Normal 6.3-8.0 [facility] Comment on above: Order Comment: Speci men Type: BLOOD SPECIMENOrdering Facility: [facility] Address: [address] [place] [address] Performed By: #### 2 4323-8, , 2776-06, 8 ####[facility] LABIA [id number] [place] [address] [place] Sodium [Moles/Vol] 138 mmol/L Normal 136-144 [facility] Comment on above: Order Comment: Speci men Type: BLOOD SPECIMENOrdering Facility: [facility] Address: [address] [place] [address] Performed By: #### 2 4323-8, , 2776-06, 2571-01 ####[facility] [id number] [place] [address] [place] Urea nitrogen [Mass/Vol] 17 mg/dL Normal 7-21 [facility] Comment on above: Order Comment: Speci men Type: BLOOD SPECIMENOrdering Facility: [facility] Address: [address] [place] [address] Performed By: #### 2 4323-8, 20975-1, 2776-06, 8 ####[facility] LABIA [id number] [address] [address] [place] Magnesium SerPl-mCncon 12-11 Magnesium [Mass/Vol] 1.9 mg/dL Normal 1.7-2.3 [facility] Comment on above: Order Comment: Speci men Type: BLOOD SPECIMENOrdering Facility: [facility] Address: [address] [place] [address] Performed By: #### 2 4323-8, 57145-6, 2777-1, 2570-8 ####[facility] [id number] [address] [address] [place] NUTRITIONon 12-11-2024 NUTRITION Normal [facility] PTT, ANTICOAGULANT THERAPYon 12-11-2024 aPTT Coag (PPP) [Time] 55.2 s High 23.0-32.4 [facility] Comment on above: Order Comment: Speci men Type: BLOOD SPECIMENOrdering Facility: [facility] Address: [address] [place] [address] Performed By: #### P TTAC ####[facility] [id number] [address] [place] aPTT Coag (PPP) [Time] 68.6 s High 23.0-32.4 [facility] Comment on above: Order Comment: Speci men Type: BLOOD SPECIMENOrdering Facility: [facility] Address: [address] [place] [address] Performed By: #### P TTAC ####[facility] [id number] [place] [address] [place] Phosphate SerPl-mCncon 12-11 Phosphate [Mass/Vol] 3.1 mg/dL Normal 2.7-4.8 [facility] Comment on above: Order Comment: Speci men Type: BLOOD SPECIMENOrdering Facility: [facility] Address: [address] [place] [address] Performed By: #### 2 4323-8, 37935-4, 2777-1, 2570-8 ####[facility] [id number] [place] [address] [place] Trigl SerPl-mCncon Triglyceride [Mass/Vol] 107 mg/dL Normal <150 [facility] Comment on above: Order Comment: Speci men Type: BLOOD SPECIMENOrdering Facility: [facility] Address: [address] [place] [address] Result Comment: <150 mg/dL, Normal 150-199 mg/dL, Borderline high 200-499 mg/dL, High>499 mg/dL, Very highReference:1. National Cholesterol Education Program ATP III Guideline At-A-Glance Quick Desk Reference: National Heart, Lung, and Blood [place]. National Institutes of Health. 2001: NIH Publication No. 01-3305. Performed By: #### 2 4323-8, 55799-8, 2777-1, 2571-8 ####[facility] LABCLIA [id number] [place] [address] [place] Triglyceride [Mass/Vol]on FASTING TIME 0 hrs Normal [facility] Comment on above: Order Comment: Speci men Type: BLOOD SPECIMENOrdering Facility: [facility] Address: [address] [place] [address] Performed By: #### 2 4323-8, 84113-6, 2777-1, 257-8 ####[facility] LABIA [id number] [place] [id number] [place] Vancomycin [place] SerPl-mCncon 12-11-2024 Vancomycin random [Mass/Vol] 14.8 ug/mL Normal 10.0-20.0 [facility] Comment on above: Order Comment: Speci men Type: BLOOD SPECIMENOrdering Facility: [facility] Address: [address] [place] [address] Result Comment: Refe rence ranges and high/low indicator flags are provided as general guidelines only. The treating physician must determine appropriate target levels/dosing based on the specific clinical situation. Performed By: #### 4 091-5 ####[facility] LABCL[facility] [id number] [place] [id number] [place] ANES POSTPROC EVALon 025 ANES POSTPROC EVAL Normal [facility] ANES PRE-OPon 12-10-2024 ANES PRE-OP Normal [facility] B-HCG SerPl-aCncon HCG.beta subunit Qn m[IU]/mL Normal <5.0 [facility] Comment on above: Order Comment: Speci men Type: BLOOD SPECIMENOrdering Facility: [facility] Address: [address] [place] [address] Result Comment: Negsameer timiles Performed By: #### 2 1198-7 ####[facility] LABIA [id number] [place] [address] [place] CASE MANAGEMon 12-10-2024 CASE MANAGEM Normal [facility] CBC panel Auto (Bld)on 12-10 Erythrocyte distribution width (RBC) [Ratio] 21.9 % High 11.5-15.0 [facility] Comment on above: Order Comment: Speci men Type: BLOOD SPECIMENOrdering Facility: [facility] Address: [address] [place] [address] Performed By: #### 5 8410-2 ####[facility] LABIA [id number] [place] [address] [place] Hematocrit (Bld) [Volume fraction] 28.0 % Low 36.0-46.0 [facility] Comment on above: Order Comment: Speci men Type: BLOOD SPECIMENOrdering Facility: [facility] Address: [address] [place] [address] Performed By: #### 5 8410-2 ####[facility]IA [id number] [place] [id number] [place] Hemoglobin (Bld) [Mass/Vol] 8.3 g/dL Low 11.5-15.5 [facility] Comment on above: Order Comment: Speci men Type: BLOOD SPECIMENOrdering Facility: [facility] Address: [address] [place] [address] Performed By: #### 5 8410-2 ####[facility] LABCL[facility] [id number] [place] [address] [place] MCH (RBC) [Entitic mass] 27.9 pg Normal 26.0-34.0 [facility] Comment on above: Order Comment: Speci men Type: BLOOD SPECIMENOrdering Facility: [facility] Address: [address] [place] [address] Performed By: #### 5 8410-2 ####[facility] LABIA [id number] [place] [address] [place] MCHC (RBC) [Mass/Vol] 29.6 g/dL Low 30.5-36.0 [facility] Comment on above: Order Comment: Speci men Type: BLOOD SPECIMENOrdering Facility: [facility] Address: [address] [place] [address] Performed By: #### 5 8410-2 ####[facility] [id number] [place] [address] [place] MCV (RBC) [Entitic vol] 94.0 fL Normal 80.0-100.0 [facility] Comment on above: Order Comment: Speci men Type: BLOOD SPECIMENOrdering Facility: [facility] Address: [address] [place] [address] Result Comment: MCV is >= 10% variation from the most recent sample, clinical correlation suggested to exclude specimen misidentification. Performed By: #### 5 8410-2 ####[facility] [id number] [place] [address] [place] Nucleated RBC (Bld) [#/Vol] 0.02 10*3/uL High <0.01 [facility] Comment on above: Order Comment: Speci men Type: BLOOD SPECIMENOrdering Facility: [facility] Address: [address] [place] [address] Performed By: #### 5 8410-2 ####[facility] LABIA [id number] [place] [address] [place] Platelet mean volume (Bld) [Entitic vol] 11.7 fL Normal 9.0-12.7 [facility] Comment on above: Order Comment: Speci men Type: BLOOD SPECIMENOrdering Facility: [facility] Address: [address] [place] [address] Performed By: #### 5 8410-2 ####[facility]CL[facility] [id number] [place] [address] [place] Platelets (Bld) [#/Vol] 389 10*3/uL Normal 150-400 [facility] Comment on above: Order Comment: Speci men Type: BLOOD SPECIMENOrdering Facility: [facility] Address: [address] [place] [address] Performed By: #### 5 8410-2 ####[facility]CL[facility] [id number] [place] [address] [place] RBC (Bld) [#/Vol] 2.98 10*6/uL Low 3.90-5.20 [facility] Comment on above: Order Comment: Speci men Type: BLOOD SPECIMENOrdering Facility: [facility] Address: [address] [place] [address] Performed By: #### 5 8410-2 ####[facility] [id number] [place] [address] [place] WBC (Bld) [#/Vol] 6.68 10*3/uL Normal 3.70-11.00 [facility] Comment on above: Order Comment: Speci men Type: BLOOD SPECIMENOrdering Facility: [facility] Address: [address] [place] [address] Result Comment: No c lot detected. Performed By: #### 5 8410-2 ####[facility] [id number] [place] [address] [place] CONSULT PROGon 12-10-2024 CONSULT PROG Normal [facility] CONSULT PROG Normal [facility] CRP SerPl-mCncon 12-10-2024 CRP [Mass/Vol] Normal <0.9 [facility] Comment on above: Order Comment: Speci men Type: BLOOD SPECIMENOrdering Facility: [facility] Address: [address] [place] [address] Result Comment: Poss ible contamination.Corrected result: Previously reported as <0.3 mg/dL on 12/10/2024 at 8:05 AM EDT. Performed By: #### 1 988-5 ####[facility] [id number] [place] [id number] [place] Comprehensive metabolic 2000 panelon 12-10-2024 Albumin [Mass/Vol] 3.7 g/dL Low 3.9-4.9 [facility] Comment on above: Order Comment: Speci men Type: BLOOD SPECIMENOrdering Facility: [facility] Address: [address] [place] [address] Performed By: #### 2 4323-8, , 2776-06 ####[facility] [id number] [place] [address] [place] ALP [Catalytic activity/Vol] 198 U/L High 34-123 [facility] Comment on above: Order Comment: Speci men Type: BLOOD SPECIMENOrdering Facility: [facility] Address: [address] [place] [address] Performed By: #### 2 4323-8, , 2776-06 ####[facility] [id number] [place] [id number] [place] ALT [Catalytic activity/Vol] 43 U/L High 7-38 [facility] Comment on above: Order Comment: Speci men Type: BLOOD SPECIMENOrdering Facility: [facility] Address: [address] [place] [address] Performed By: #### 2 4323-8, , 2776- ####[facility] [id number] [address] [address] [place] Anion gap [Moles/Vol] 11 mmol/L Normal 8-15 [facility] Comment on above: Order Comment: Speci men Type: BLOOD SPECIMENOrdering Facility: [facility] Address: [address] [place] [address] Performed By: #### 2 4323-8, , 2776-06 ####[facility]CL[facility] [id number] [place] [id number] [place] AST [Catalytic activity/Vol] 34 U/L Normal 13-35 [facility] Comment on above: Order Comment: Speci men Type: BLOOD SPECIMENOrdering Facility: [facility] Address: [address] [place] [address] Performed By: #### 2 4323-8, , 2776-06 ####[facility]CL[facility] [id number] [place] [id number] [place] Bilirubin [Mass/Vol] 0.6 mg/dL Normal 0.2-1.3 [facility] Comment on above: Order Comment: Speci men Type: BLOOD SPECIMENOrdering Facility: [facility] Address: [address] [place] [address] Performed By: #### 2 4323-8, , 2776-06 ####[facility] LABCLIA [id number] [address], [facility]95 [place] Calcium [Mass/Vol] 9.6 mg/dL Normal 8.5-10.2 [facility] Comment on above: Order Comment: Speci men Type: BLOOD SPECIMENOrdering Facility: [facility] Address: [address] [place] [address] Performed By: #### 2 4323-8, , 2776-06 ####[facility] LABCLIA [id number] [address] [place] [address] [place] Chloride [Moles/Vol] 103 mmol/L Normal 98-107 [facility] Comment on above: Order Comment: Speci men Type: BLOOD SPECIMENOrdering Facility: [facility] Address: [address] [place], [place] [address] Performed By: #### 2 4323-8, 39932-7, 2776-06 ####[facility] LABCLIA [id number] [place] [id number] [place] CO2 [Moles/Vol] 23 mmol/L Normal 22-30 [facility] Comment on above: Order Comment: Speci men Type: BLOOD SPECIMENOrdering Facility: [facility] Address: [address] [place] [address] Performed By: #### 2 4323-8, , 2776-06 ####[facility] LABIA [id number] [place] [address] [place] Creatinine [Mass/Vol] 0.85 mg/dL Normal 0.58-0.96 [facility] Comment on above: Order Comment: Speci men Type: BLOOD SPECIMENOrdering Facility: [facility] Address: [address] [place] [address] Performed By: #### 2 4323-8, 88942-2, 27712-25 ####[facility] LABIA [id number] [place] [address] [place] Creatinine and Glomerular filtration rate.predicted panel (S/P/Bld) 88 mL/min/1.73m??? Normal >=60 [facility] Comment on above: Order Comment: Speci men Type: BLOOD SPECIMENOrdering Facility: [facility] Address: [address] [place] [address] Result Comment: Zeny mated Glomerular Filtration Rate [...] Performed By: #### 2 4323-8, , 2776-06 ####[facility] LABCLIA [id number] [facility] [id number] [place] [address] [place] Glucose [Mass/Vol] 119 mg/dL High 74-99 [facility] Comment on above: Order Comment: Dora finch Type: BLOOD SPECIMENOrdering Facility: [facility] Address: [address] [place] [address] Result Comment: The [place] Diabetes Association (ADA) provides guidance for cutoff [...] Standards of Medical Care in Diabetes 2016, [place] [employer]. Diabetes Care. 2016.39(Suppl 1). Performed By: #### 2 4323-8, , 2776-06 ####[facility] LABCLIA [id number] [facility]ALK [address] [address] [place] Potassium [Moles/Vol] 4.8 mmol/L Normal 3.7-5.1 [facility] Comment on above: Order Comment: Dora finch Type: BLOOD SPECIMENOrdering Facility: [facility] Address: [address] [place] [address] Performed By: #### 2 4323-8, , 2776-06 ####[facility] LABCLIA [id number] [facility]ENTERLID AVEN[address] [place] [address] [place] Protein [Mass/Vol] 7.4 g/dL Normal 6.3-8.0 [facility] Comment on above: Order Comment: Speci men Type: BLOOD SPECIMENOrdering Facility: [facility] Address: [address] [place], [place] [address] Performed By: #### 2 4323-8, , 2776-06 ####[facility] LABCLIA [id number] [address] [address] [place] Sodium [Moles/Vol] 137 mmol/L Normal 136-144 [facility] Comment on above: Order Comment: Speci men Type: BLOOD SPECIMENOrdering Facility: [facility] Address: [address] [place], [place] [address] Performed By: #### 2 4323-8, , 2776-06 ####[facility] LABCLIA [id number] [place] [address] [place] Urea nitrogen [Mass/Vol] 16 mg/dL Normal 7-21 [facility] Comment on above: Order Comment: Speci men Type: BLOOD SPECIMENOrdering Facility: [facility] Address: [address] [place], [place] [address] Performed By: #### 2 4323-8, , 2776-06 ####[facility] LABIA [id number] [address] [address] [place] Magnesium SerPl-mCncon 12-10 Magnesium [Mass/Vol] 2.2 mg/dL Normal 1.7-2.3 [facility] Comment on above: Order Comment: Speci men Type: BLOOD SPECIMENOrdering Facility: [facility] Address: [address] [place], [place] [address] Performed By: #### 2 4323-8, , 2776-06 ####[facility] LABCLIA [id number] [address] [address] [place] NUTRITIONon 12-10-2024 NUTRITION Normal [facility] PTT, ANTICOAGULANT THERAPYon 12-10-2024 aPTT Coag (PPP) [Time] 50.4 s High 23.0-32.4 [facility] Comment on above: Order Comment: Speci men Type: BLOOD SPECIMENOrdering Facility: [facility] Address: [address] [place] [address] Performed By: #### P TTAC ####[facility] LABCLIA [id number] [place] [address] [place] aPTT Coag (PPP) [Time] 29.2 s Normal 23.0-32.4 [facility] Comment on above: Order Comment: Speci men Type: BLOOD SPECIMENOrdering Facility: [facility] Address: [address] [place] [address] Result Comment: Inte rpret with caution. Sample centrifuged greater than 1 hour from collection time. According to Clinical and Laboratory Standards [place] guidelines, results could be falsely decreased due to heparin neutralization by in vitro release of platelet factor 4. Suggest correlation with clinical findings and redraw if indicated. Performed By: #### P TTAC ####[facility] LABCLIA [id number] [place] [address] [place] Phosphate SerPl-mCncon 12-10 Phosphate [Mass/Vol] 4.3 mg/dL Normal 2.7-4.8 [facility] Comment on above: Order Comment: Speci men Type: BLOOD SPECIMENOrdering Facility: [facility] Address: [address] [place] [address] Performed By: #### 2 4323-8, 34002-7, 2777-1 ####[facility] LABCLIA [id number] [place] [address] [place] TYPE + SCREENon 12-10-2024 ABO O Normal [facility] Comment on above: Order Comment: Speci men Type: BLOOD SPECIMENOrdering Facility: [facility] Address: [address] [place] [address] Performed By: #### T SCR ####[facility] BLOOD BANKCLIA [id number] [place] [address] [place] Rh Nom (Bld) Positive Normal [facility] Comment on above: Order Comment: Speci men Type: BLOOD SPECIMENOrdering Facility: [facility] Address: [address] [place] [address] Performed By: #### T SCR ####[facility] BLOOD BANKCLIA [id number] [place] [address] [place] TYPE AND SCREEN EXPIRATION 12/13/2024 23:59 Normal [facility] Comment on above: Order Comment: Speci men Type: BLOOD SPECIMENOrdering Facility: [facility] Address: [address] [place] [address] Performed By: #### T SCR ####[facility] BLOOD BANKCLIA [id number] [address] [place] ALLIED HEALTHon 12-09-2024 ALLIED HEALTH Normal [facility] CBC panel Auto (Bld)on 12-09 Erythrocyte distribution width (RBC) [Ratio] 20.9 % High 11.5-15.0 [facility] Comment on above: Order Comment: Speci men Type: BLOOD SPECIMENOrdering Facility: [facility] Address: [address] [place] [address] Performed By: #### 5 8410-2 ####[facility] LABCLIA [id number] [place] [address] [place] Hematocrit (Bld) [Volume fraction] 28.3 % Low 36.0-46.0 [facility] Comment on above: Order Comment: Speci men Type: BLOOD SPECIMENOrdering Facility: [facility] Address: [address] [place] [address] Performed By: #### 5 8410-2 ####[facility] LABCLIA [id number] [place] [address] [place] Hemoglobin (Bld) [Mass/Vol] 8.9 g/dL Low 11.5-15.5 [facility] Comment on above: Order Comment: Speci men Type: BLOOD SPECIMENOrdering Facility: [facility] Address: [address] [place] [address] Performed By: #### 5 8410-2 ####[facility]BRATT[facility] [id number] [address] STATES [facility] MCH (RBC) [Entitic mass] 26.5 pg Normal 26.0-34.0 [facility] Comment on above: Order Comment: Speci men Type: BLOOD SPECIMENOrdering Facility: [facility] Address: [address] [place] [address] Performed By: #### 5 8410-2 ####[facility] [id number] [address] [place] MCHC (RBC) [Mass/Vol] 31.4 g/dL Normal 30.5-36.0 [facility] Comment on above: Order Comment: Speci men Type: BLOOD SPECIMENOrdering Facility: [facility] Address: [address] [place] [address] Performed By: #### 5 8410-2 ####[facility] [id number] [place] [address] [place] MCV (RBC) [Entitic vol] 84.2 fL Normal 80.0-100.0 [facility] Comment on above: Order Comment: Speci men Type: BLOOD SPECIMENOrdering Facility: [facility] Address: [address] [place] [address] Performed By: #### 5 8410-2 ####[facility]ATT[facility] [id number] [place] [address] [place] Nucleated RBC (Bld) [#/Vol] 10*3/uL Normal <0.01 [facility] Comment on above: Order Comment: Speci men Type: BLOOD SPECIMENOrdering Facility: [facility] Address: [address] [place] [address] Performed By: #### 5 8410-2 ####[facility] LABCLIA [id number] [address] [place] [address] [place] Platelet mean volume (Bld) [Entitic vol] 9.2 fL Normal 9.0-12.7 [facility] Comment on above: Order Comment: Speci men Type: BLOOD SPECIMENOrdering Facility: [facility] Address: [address] [place] [address] Performed By: #### 5 8410-2 ####[facility] LABCLIA [id number] [facility] [address] [place] [address] [place] Platelets (Bld) [#/Vol] 423 10*3/uL High 150-400 [facility] Comment on above: Order Comment: Speci men Type: BLOOD SPECIMENOrdering Facility: [facility] Address: [address] [place] [address] Performed By: #### 5 8410-2 ####[facility] LABCLIA [id number] [address], [place] [address] [place] RBC (Bld) [#/Vol] 3.36 10*6/uL Low 3.90-5.20 [facility] Comment on above: Order Comment: Speci men Type: BLOOD SPECIMENOrdering Facility: [facility] Address: [address] [place] [address] Performed By: #### 5 8410-2 ####[facility] LABCLIA [id number] [address] [place] [address] [place] WBC (Bld) [#/Vol] 8.36 10*3/uL Normal 3.70-11.00 [facility] Comment on above: Order Comment: Speci men Type: BLOOD SPECIMENOrdering Facility: [facility] Address: [address] [place] [address] Performed By: #### 5 8410-2 ####[facility] LABCLIA [id number] [address] [place] [address] [place] [facility] Comprehensive metabolic 2000 panelon 12-09-2024 Albumin [Mass/Vol] 3.2 g/dL Low 3.9-4.9 [facility] Comment on above: Order Comment: Speci men Type: BLOOD SPECIMENOrdering Facility: [facility] Address: [address] [place] [address] Performed By: #### 2 4323-8, 89849-7, 2776- ####[facility] LABCLIA [id number] [place] [id number] [place] ALP [Catalytic activity/Vol] 163 U/L High 34-123 [facility] Comment on above: Order Comment: Speci men Type: BLOOD SPECIMENOrdering Facility: [facility] Address: [address] [place] [address] Performed By: #### 2 4323-8, , 2776- ####[facility] LABCLIA [id number] [place] [address] [place] ALT [Catalytic activity/Vol] 37 U/L Normal 7-38 [facility] Comment on above: Order Comment: Speci men Type: BLOOD SPECIMENOrdering Facility: [facility] Address: [address] [place] [address] Performed By: #### 2 4323-8, , 2776- ####[facility] LABCLIA [id number] [place] [id number] [place] Anion gap [Moles/Vol] 12 mmol/L Normal 8-15 [facility] Comment on above: Order Comment: Speci men Type: BLOOD SPECIMENOrdering Facility: [facility] Address: [address] [place] [address] Performed By: #### 2 4323-8, 67949-9, 2776- ####[facility] LABCLIA [id number] [place] [id number] [place] AST [Catalytic activity/Vol] 31 U/L Normal 13-35 [facility] Comment on above: Order Comment: Speci men Type: BLOOD SPECIMENOrdering Facility: [facility] Address: [address] [place], [place] [address] Performed By: #### 2 4323-8, , 2776-06 ####[facility] LABCLIA [id number] [facility]D AVENUEDAVID GRANT USAF MEDICAL CENTERK [place] [address] [place] Bilirubin [Mass/Vol] 0.5 mg/dL Normal 0.2-1.3 [facility] Comment on above: Order Comment: Speci men Type: BLOOD SPECIMENOrdering Facility: [facility] Address: [address] [place] [address] Performed By: #### 2 4323-8, , 2776-06 ####[facility] LABCLIA [id number] [place] [address] [place] Calcium [Mass/Vol] 9.2 mg/dL Normal 8.5-10.2 [facility] Comment on above: Order Comment: Speci men Type: BLOOD SPECIMENOrdering Facility: [facility] Address: [address] [place], [place] [address] Performed By: #### 2 4323-8, , 2776-06 ####[facility] LABCLIA [id number] [place] [address] [place] Chloride [Moles/Vol] 101 mmol/L Normal 98-107 [facility] Comment on above: Order Comment: Speci men Type: BLOOD SPECIMENOrdering Facility: [facility] Address: [address] [place] [address] Performed By: #### 2 4323-8, , 2776-06 ####[facility] LABCLIA [id number] [facility] AVENUEDAVID [facility] USA[facility] MED[facility] CENTERK [address] [place] [address] [place] CO2 [Moles/Vol] 24 mmol/L Normal 22-30 [facility] Comment on above: Order Comment: Speci men Type: BLOOD SPECIMENOrdering Facility: [facility] Address: [address] [place] [address] Performed By: #### 2 4323-8, , 2776-06 ####[facility] LABCLIA [id number] [address] [address] [place] Creatinine [Mass/Vol] 0.89 mg/dL Normal 0.58-0.96 [facility] Comment on above: Order Comment: Florii men Type: BLOOD SPECIMENOrdering Facility: [facility] Address: [address] [place] [address] Performed By: #### 2 4323-8, , 2776-06 ####[facility] LABIA [id number] [address] [address] [place] Creatinine and Glomerular filtration rate.predicted panel (S/P/Bld) 84 mL/min/1.73m??? Normal >=60 [facility] Comment on above: Order Comment: Dora men Type: BLOOD SPECIMENOrdering Facility: [facility] Address: [address] [place] [address] Result Comment: Zeny mated Glomerular Filtration Rate [...] Performed By: #### 2 4323-8, , 2776-06 ####[facility] LABIA [id number] [address] [address] [place] Glucose [Mass/Vol] 105 mg/dL High 74-99 [facility] Comment on above: Order Comment: Dora finch Type: BLOOD SPECIMENOrdering Facility: [facility] Address: [address] [place], [place] [address] Result Comment: The [place] Diabetes Association (ADA) provides guidance for cutoff [...] Standards of Medical Care in Diabetes 2016, [place] [employer] Association. Diabetes Care. 2016.39(Suppl 1). Performed By: #### 2 4323-8, , 2776-06 ####[facility]BRATT[facility] [id number] [place] [address] [place] Potassium [Moles/Vol] 3.9 mmol/L Normal 3.7-5.1 [facility] Comment on above: Order Comment: Speci men Type: BLOOD SPECIMENOrdering Facility: [facility] Address: [address] [place] [address] Performed By: #### 2 4323-8, , 2776-06 ####[facility] [id number] [place] [address] [place] Protein [Mass/Vol] 6.4 g/dL Normal 6.3-8.0 [facility] Comment on above: Order Comment: Speci men Type: BLOOD SPECIMENOrdering Facility: [facility] Address: [address] [place] [address] Performed By: #### 2 4323-8, , 2776-06 ####[facility] [id number] [place] [id number] [place] Sodium [Moles/Vol] 137 mmol/L Normal 136-144 [facility] Comment on above: Order Comment: Speci men Type: BLOOD SPECIMENOrdering Facility: [facility] Address: [address] [place] [address] Performed By: #### 2 4323-8, 94724-8, 2777-1 ####[facility] LABCLIA [id number] [place] [id number] [place] Urea nitrogen [Mass/Vol] 17 mg/dL Normal 7-21 [facility] Comment on above: Order Comment: Speci men Type: BLOOD SPECIMENOrdering Facility: [facility] Address: [address] [place] [address] Performed By: #### 2 4323-8, 03835-6, 2776- ####[facility] LABIA [id number] [place] [id number] [place] Magnesium SerPl-mCncon 12-09 Magnesium [Mass/Vol] 1.9 mg/dL Normal 1.7-2.3 [facility] Comment on above: Order Comment: Speci men Type: BLOOD SPECIMENOrdering Facility: [facility] Address: [address] [place] [address] Performed By: #### 2 4323-8, 90845-3, 277-1 ####[facility] LABIA [id number] [place] [id number] [place] NURSING PROGon 12-09-2024 NURSING PROG Normal [facility] PTT, ANTICOAGULANT THERAPYon 12-09-2024 aPTT Coag (PPP) [Time] 64.5 s High 23.0-32.4 [facility] Comment on above: Order Comment: Speci men Type: BLOOD SPECIMENOrdering Facility: [facility] Address: [address] [place] [address] Performed By: #### P TTA ####[facility] LABIA [id number] [place] [id number] [place] aPTT Coag (PPP) [Time] 44.6 s High 23.0-32.4 [facility] Comment on above: Order Comment: Speci men Type: BLOOD SPECIMENOrdering Facility: [facility] Address: [address] [place] [address] Performed By: #### P TTAC ####[facility] LABIA [id number] [place] [address] [place] aPTT Coag (PPP) [Time] 87.9 s High 23.0-32.4 [facility] Comment on above: Order Comment: Speci men Type: BLOOD SPECIMENOrdering Facility: [facility] Address: [address] [place] [address] Performed By: #### P TTAC ####[facility] LABIA [id number] [place] [address] [place] Phosphate SerPl-mCncon 12-09 Phosphate [Mass/Vol] 4.1 mg/dL Normal 2.7-4.8 [facility] Comment on above: Order Comment: Speci men Type: BLOOD SPECIMENOrdering Facility: [facility] Address: [address] [place] [address] Performed By: #### 2 4323-8, 56263-0, 2777-1 ####[facility]ITAL[facility] [id number] [address] [place] BRIEF OP NOTon 12-08-2024 BRIEF OP NOT Normal [facility] CBC panel Auto (Bld)on 12-08 Erythrocyte distribution width (RBC) [Ratio] 20.5 % High 11.5-15.0 [facility] Comment on above: Order Comment: Speci men Type: BLOOD SPECIMENOrdering Facility: [facility] Address: [address] [place] [address] Performed By: #### 5 8410-2 ####[facility] LABIA [id number] [address] [place] Hematocrit (Bld) [Volume fraction] 27.6 % Low 36.0-46.0 [facility] Comment on above: Order Comment: Speci men Type: BLOOD SPECIMENOrdering Facility: [facility] Address: [address] [place] [address] Performed By: #### 5 8410-2 ####[facility] LABCLIA [id number] [place] [address] [place] Hemoglobin (Bld) [Mass/Vol] 8.4 g/dL Low 11.5-15.5 [facility] Comment on above: Order Comment: Speci men Type: BLOOD SPECIMENOrdering Facility: [facility] Address: [address] [place] [address] Performed By: #### 5 8410-2 ####[facility] LABIA [id number] [place] [address] [place] MCH (RBC) [Entitic mass] 25.9 pg Low 26.0-34.0 [facility] Comment on above: Order Comment: Speci men Type: BLOOD SPECIMENOrdering Facility: [facility] Address: [address] [place] [address] Performed By: #### 5 8410-2 ####[facility] LABIA [id number] [place] [address] [place] MCHC (RBC) [Mass/Vol] 30.4 g/dL Low 30.5-36.0 [facility] Comment on above: Order Comment: Speci men Type: BLOOD SPECIMENOrdering Facility: [facility] Address: [address] [place] [address] Performed By: #### 5 8410-2 ####[facility] LABIA [id number] [place] [address] [place] MCV (RBC) [Entitic vol] 85.2 fL Normal 80.0-100.0 [facility] Comment on above: Order Comment: Speci men Type: BLOOD SPECIMENOrdering Facility: [facility] Address: [address] [place] [address] Performed By: #### 5 8410-2 ####[facility] LABCLIA [id number] [address] [address] [place] Nucleated RBC (Bld) [#/Vol] 0.02 10*3/uL High <0.01 [facility] Comment on above: Order Comment: Speci men Type: BLOOD SPECIMENOrdering Facility: [facility] Address: [address] [place] [address] Performed By: #### 5 8410-2 ####[facility] LABIA [id number] [address], [place] [address] [place] Platelet mean volume (Bld) [Entitic vol] 10.3 fL Normal 9.0-12.7 [facility] Comment on above: Order Comment: Speci men Type: BLOOD SPECIMENOrdering Facility: [facility] Address: [address] [place] [address] Performed By: #### 5 8410-2 ####[facility] LABIA [id number] [place] [address] [place] Platelets (Bld) [#/Vol] 423 10*3/uL High 150-400 [facility] Comment on above: Order Comment: Speci men Type: BLOOD SPECIMENOrdering Facility: [facility] Address: [address] [place] [address] Performed By: #### 5 8410-2 ####[facility] [id number] [place] [address] [place] RBC (Bld) [#/Vol] 3.24 10*6/uL Low 3.90-5.20 [facility] Comment on above: Order Comment: Speci men Type: BLOOD SPECIMENOrdering Facility: [facility] Address: [address] [place] [address] Performed By: #### 5 8410-2 ####[facility] [id number] [address], [facility]95 [place] WBC (Bld) [#/Vol] 7.37 10*3/uL Normal 3.70-11.00 [facility] Comment on above: Order Comment: Speci men Type: BLOOD SPECIMENOrdering Facility: [facility] Address: [address] [place] [address] Performed By: #### 5 8410-2 ####[facility]CL[facility] [id number] [place] [id number] [place] CONSULT PROGon 12-08-2024 CONSULT PROG Normal [facility] CONSULT PROG Normal [facility] Comprehensive metabolic 2000 panelon 12-08-2024 Albumin [Mass/Vol] 3.2 g/dL Low 3.9-4.9 [facility] Comment on above: Order Comment: Speci men Type: BLOOD SPECIMENOrdering Facility: [facility] Address: [address] [place] [address] Performed By: #### 2 4323-8, , 2776-06 ####[facility]CL[facility] [id number] [address], [facility]95 [place] ALP [Catalytic activity/Vol] 163 U/L High 34-123 [facility] Comment on above: Order Comment: Speci men Type: BLOOD SPECIMENOrdering Facility: [facility] Address: [address] [place] [address] Performed By: #### 2 4323-8, , 2776- ####[facility]CL[facility] [id number] [place] [id number] [place] ALT [Catalytic activity/Vol] 41 U/L High 7-38 [facility] Comment on above: Order Comment: Speci men Type: BLOOD SPECIMENOrdering Facility: [facility] Address: [address] [place] [address] Performed By: #### 2 4323-8, 71510-5, 2777- ####[facility] [id number] [place] [id number] [place] Anion gap [Moles/Vol] 14 mmol/L Normal 8-15 [facility] Comment on above: Order Comment: Speci men Type: BLOOD SPECIMENOrdering Facility: [facility] Address: [address] [place] [address] Performed By: #### 2 4323-8, 33284-0, 2776-06 ####[facility]CL[facility] [id number] [place] [id number] [place] AST [Catalytic activity/Vol] 30 U/L Normal 13-35 [facility] Comment on above: Order Comment: Speci men Type: BLOOD SPECIMENOrdering Facility: [facility] Address: [address] [place] [address] Performed By: #### 2 4323-8, , 2776-06 ####[facility] [id number] [place] [address] [place] Bilirubin [Mass/Vol] 0.4 mg/dL Normal 0.2-1.3 [facility] Comment on above: Order Comment: Speci men Type: BLOOD SPECIMENOrdering Facility: [facility] Address: [address] [place] [address] Performed By: #### 2 4323-8, , 2776-06 ####[facility] [id number] [place] [id number] [place] Calcium [Mass/Vol] 9.3 mg/dL Normal 8.5-10.2 [facility] Comment on above: Order Comment: Speci men Type: BLOOD SPECIMENOrdering Facility: [facility] Address: [address] [place] [address] Performed By: #### 2 4323-8, , 2776-06 ####[facility] [id number] [place] [id number] [place] Chloride [Moles/Vol] 101 mmol/L Normal 98-107 [facility] Comment on above: Order Comment: Speci men Type: BLOOD SPECIMENOrdering Facility: [facility] Address: [address] [place], [place] [address] Performed By: #### 2 4323-8, , 2776-06 ####[facility] [id number] [place] [id number] [place] CO2 [Moles/Vol] 22 mmol/L Normal 22-30 [facility] Comment on above: Order Comment: Speci men Type: BLOOD SPECIMENOrdering Facility: [facility] Address: [address] [place] [address] Performed By: #### 2 4323-8, , 2776-06 ####[facility] [id number] [place] [id number] [place] Creatinine [Mass/Vol] 0.91 mg/dL Normal 0.58-0.96 [facility] Comment on above: Order Comment: Speci men Type: BLOOD SPECIMENOrdering Facility: [facility] Address: [address] [place] [address] Performed By: #### 2 4323-8, , 2776-06 ####[facility] [id number] [place] [id number] [place] Creatinine and Glomerular filtration rate.predicted panel (S/P/Bld) 81 mL/min/1.73m??? Normal >=60 [facility] Comment on above: Order Comment: Speci men Type: BLOOD SPECIMENOrdering Facility: [facility] Address: [address] [place] [address] Result Comment: Zeny mated Glomerular Filtration Rate [...] Performed By: #### 2 4323-8, , 2776-06 ####[facility]CL[facility] [id number] [address] [address] [place] Glucose [Mass/Vol] 112 mg/dL High 74-99 [facility] Comment on above: Order Comment: Speci men Type: BLOOD SPECIMENOrdering Facility: [facility] Address: [address] [place] [address] Result Comment: The [place] Diabetes Association (ADA) provides guidance for cutoff [...] Standards of Medical Care in Diabetes 2016, [place] [employer]. Diabetes Care. 2016.39(Suppl 1). Performed By: #### 2 4323-8, , 2776-06 ####[facility]CL[facility] [id number] [address] [address] [place] Potassium [Moles/Vol] 4.0 mmol/L Normal 3.7-5.1 [facility] Comment on above: Order Comment: Speci men Type: BLOOD SPECIMENOrdering Facility: [facility] Address: [address] [place] [id number] Performed By: #### 2 4323-8, , 2776-06 ####[facility] [id number] [address] [address] [place] Protein [Mass/Vol] 6.8 g/dL Normal 6.3-8.0 [facility] Comment on above: Order Comment: Speci men Type: BLOOD SPECIMENOrdering Facility: [facility] Address: [address] [place] [address] Performed By: #### 2 4323-8, 36248-9, 1 ####[facility] [id number] [place] [id number] [place] Sodium [Moles/Vol] 137 mmol/L Normal 136-144 [facility] Comment on above: Order Comment: Speci men Type: BLOOD SPECIMENOrdering Facility: [facility] Address: [address] [place] [address] Performed By: #### 2 4323-8, , 2776-06 ####[facility] [id number] [place] [address] [place] Urea nitrogen [Mass/Vol] 14 mg/dL Normal 7-21 [facility] Comment on above: Order Comment: Florii men Type: BLOOD SPECIMENOrdering Facility: [facility] Address: [address] [place] [address] Performed By: #### 2 4323-8, , 2776-06 ####[facility] [id number] [place] [address] [place] Fact Xa PPP-aCncon 5 Coagulation factor X activated act Coag Qn (PPP) 0.76 IU/mL High <0.10 [facility] Comment on above: Order Comment: Dora finch Type: BLOOD SPECIMENOrdering Facility: [facility] Address: [address] [place] [address] Result Comment: The recommended therapeutic range for treatment of venous and arterial thrombosis with intravenous unfractionated heparin is an anti Xa activity level of 0.3 to 0.7 IU/mL. In patients with concomitant therapy with thrombolytic agents and/or platelet glycoprotein IIb/IIIa antagonists, the recommended therapeutic range is an anti Xa activity level of 0.2 to 0.5 IU/mL. Performed By: #### 3 217-7 ####[facility]CL[facility] [id number] [place] [address] [place] Coagulation factor X activated act Coag Qn (PPP) 0.55 IU/mL High <0.10 [facility] Comment on above: Order Comment: Dora finch Type: BLOOD SPECIMENOrdering Facility: [facility] Address: [address] [place] [address] Result Comment: The recommended therapeutic range for treatment of venous and arterial thrombosis with intravenous unfractionated heparin is an anti Xa activity level of 0.3 to 0.7 IU/mL. In patients with concomitant therapy with thrombolytic agents and/or platelet glycoprotein IIb/IIIa antagonists, the recommended therapeutic range is an anti Xa activity level of 0.2 to 0.5 IU/mL. Performed By: #### P TTAC, 3217-7 ####[facility] [id number] [place] [address] [place] IR PICC INSERT PHYSICIANon 0 12-08-2024 IR PICC INSERT PHYSICIAN Normal [facility] Magnesium SerPl-mCncon 12-08 Magnesium [Mass/Vol] 1.9 mg/dL Normal 1.7-2.3 [facility] Comment on above: Order Comment: Dora finch Type: BLOOD SPECIMENOrdering Facility: [facility] Address: [address] [place] [address] Performed By: #### 2 4323-8, 25873-1, 2777-1 ####[facility] [id number] [place] [address] [place] PTT, ANTICOAGULANT THERAPYon 12-08-2024 aPTT Coag (PPP) [Time] 37.0 s High 23.0-32.4 [facility] Comment on above: Order Comment: Dora finch Type: BLOOD SPECIMENOrdering Facility: [facility] Address: [address] [place] [address] Performed By: #### P TTAC ####[facility] [id number] [place] [address] [place] aPTT Coag (PPP) [Time] 94.6 s High 23.0-32.4 [facility] Comment on above: Order Comment: Speci men Type: BLOOD SPECIMENOrdering Facility: [facility] Address: [address] [place] [address] Performed By: #### P TTAC ####[facility]CL[facility] [id number] [place] [id number] [place] aPTT Coag (PPP) [Time] 88.0 s High 23.0-32.4 [facility] Comment on above: Order Comment: Speci men Type: BLOOD SPECIMENOrdering Facility: [facility] Address: [address] [place] [address] Performed By: #### P TTAC ####[facility]CL[facility] [id number] [address] [place] [facility] aPTT Coag (PPP) [Time] 56.3 s High 23.0-32.4 [facility] Comment on above: Order Comment: Speci men Type: BLOOD SPECIMENOrdering Facility: [facility] Address: [address] [place] [address] Performed By: #### P TTAC, 3217-7 ####[facility] [id number] [place] [id number] [place] Phosphate SerPl-mCncon 12-08 Phosphate [Mass/Vol] 4.5 mg/dL Normal 2.7-4.8 [facility] Comment on above: Order Comment: Speci men Type: BLOOD SPECIMENOrdering Facility: [facility] Address: [address] [place] [address] Performed By: #### 2 4323-8, 23779-5, 2777-1 ####[facility]CL[facility] [id number] [place] [id number] [place] ALLIED HEALTHon 12-07-2024 ALLIED HEALTH Normal [facility] CBC panel Auto (Bld)on 12-07 Erythrocyte distribution width (RBC) [Ratio] 20.2 % High 11.5-15.0 [facility] Comment on above: Order Comment: Speci men Type: BLOOD SPECIMENOrdering Facility: [facility] Address: [address] [place] [address] Performed By: #### 5 8410-2 ####[facility] [id number] [place] [address] [place] Hematocrit (Bld) [Volume fraction] 28.3 % Low 36.0-46.0 [facility] Comment on above: Order Comment: Speci men Type: BLOOD SPECIMENOrdering Facility: [facility] Address: [address] [place] [address] Performed By: #### 5 8410-2 ####[facility] [id number] [address] [place] Hemoglobin (Bld) [Mass/Vol] 9.0 g/dL Low 11.5-15.5 [facility] Comment on above: Order Comment: Speci men Type: BLOOD SPECIMENOrdering Facility: [facility] Address: [address] [place] [address] Performed By: #### 5 8410-2 ####[facility] [id number] [place] [address] [place] MCH (RBC) [Entitic mass] 26.5 pg Normal 26.0-34.0 [facility] Comment on above: Order Comment: Speci men Type: BLOOD SPECIMENOrdering Facility: [facility] Address: [address] [place] [address] Performed By: #### 5 8410-2 ####[facility] [id number] [place] [id number] [place] MCHC (RBC) [Mass/Vol] 31.8 g/dL Normal 30.5-36.0 [facility] Comment on above: Order Comment: Speci men Type: BLOOD SPECIMENOrdering Facility: [facility] Address: [address] [place] [address] Performed By: #### 5 8410-2 ####[facility] [id number] [place] [address] [place] MCV (RBC) [Entitic vol] 83.2 fL Normal 80.0-100.0 [facility] Comment on above: Order Comment: Speci men Type: BLOOD SPECIMENOrdering Facility: [facility] Address: [address] [place] [address] Performed By: #### 5 8410-2 ####[facility] [id number] [place] [address] [place] Nucleated RBC (Bld) [#/Vol] 10*3/uL Normal <0.01 [facility] Comment on above: Order Comment: Speci men Type: BLOOD SPECIMENOrdering Facility: [facility] Address: [address] [place] [address] Performed By: #### 5 8410-2 ####[facility] [id number] [place] [address] [place] Platelet mean volume (Bld) [Entitic vol] 10.0 fL Normal 9.0-12.7 [facility] Comment on above: Order Comment: Speci men Type: BLOOD SPECIMENOrdering Facility: [facility] Address: [address] [place] [address] Performed By: #### 5 8410-2 ####[facility] [id number] [place] [address] [place] Platelets (Bld) [#/Vol] 414 10*3/uL High 150-400 [facility] Comment on above: Order Comment: Speci men Type: BLOOD SPECIMENOrdering Facility: [facility] Address: [address] [place] [address] Performed By: #### 5 8410-2 ####[facility]CL[facility] [id number] [address] [address] [place] RBC (Bld) [#/Vol] 3.40 10*6/uL Low 3.90-5.20 [facility] Comment on above: Order Comment: Speci men Type: BLOOD SPECIMENOrdering Facility: [facility] Address: [address] [place] [address] Performed By: #### 5 8410-2 ####[facility] [id number] [address] [address] [place] WBC (Bld) [#/Vol] 7.16 10*3/uL Normal 3.70-11.00 [facility] Comment on above: Order Comment: Speci men Type: BLOOD SPECIMENOrdering Facility: [facility] Address: [address] [place] [address] Performed By: #### 5 8410-2 ####[facility] [id number] [place] [id number] [place] CONSULT PROGon 12-07-2024 CONSULT PROG Normal [facility] Comprehensive metabolic 2000 panelon 12-07-2024 Albumin [Mass/Vol] 3.3 g/dL Low 3.9-4.9 [facility] Comment on above: Order Comment: Speci men Type: BLOOD SPECIMENOrdering Facility: [facility] Address: [address] [place] [address] Performed By: #### 2 4323-8, 41810-6, 27712-25 ####[facility] [id number] [place] [id number] [place] ALP [Catalytic activity/Vol] 185 U/L High 34-123 [facility] Comment on above: Order Comment: Speci men Type: BLOOD SPECIMENOrdering Facility: [facility] Address: [address] [place], [place] [address] Performed By: #### 2 4323-8, , 2776-06 ####[facility]CL[facility] [id number] [facility] [address] [address] [place] ALT [Catalytic activity/Vol] 53 U/L High 7-38 [facility] Comment on above: Order Comment: Speci men Type: BLOOD SPECIMENOrdering Facility: [facility] Address: [address] [place] [address] Performed By: #### 2 432-8, , 2776-06 ####[facility]CL[facility] [id number] [address] [address] [place] Anion gap [Moles/Vol] 16 mmol/L High 8-15 [facility] Comment on above: Order Comment: Speci men Type: BLOOD SPECIMENOrdering Facility: [facility] Address: [address] [place] [address] Performed By: #### 2 8, , 2776-06 ####[facility] [id number] [address] [address] [place] AST [Catalytic activity/Vol] 40 U/L High 13-35 [facility] Comment on above: Order Comment: Speci men Type: BLOOD SPECIMENOrdering Facility: [facility] Address: [address] [place] [address] Performed By: #### 2 4323-8, , 2776-06 ####[facility] [id number] [address] [address] [place] Bilirubin [Mass/Vol] 0.6 mg/dL Normal 0.2-1.3 [facility] Comment on above: Order Comment: Speci men Type: BLOOD SPECIMENOrdering Facility: [facility] Address: [address] [place], [place] [address] Performed By: #### 2 4323-8, , 2776-06 ####[facility]CL[facility] [id number] [address] [place] [address] [place] Calcium [Mass/Vol] 9.0 mg/dL Normal 8.5-10.2 [facility] Comment on above: Order Comment: Speci men Type: BLOOD SPECIMENOrdering Facility: [facility] Address: [address] [place] [address] Performed By: #### 2 4323-8, , 2776-06 ####[facility] [id number] [place] [id number] [place] Chloride [Moles/Vol] 101 mmol/L Normal 98-107 [facility] Comment on above: Order Comment: Speci men Type: BLOOD SPECIMENOrdering Facility: [facility] Address: [address] [place] [address] Performed By: #### 2 4323-8, , 2776-06 ####[facility] [id number] [place] [address] [place] CO2 [Moles/Vol] 21 mmol/L Low 22-30 [facility] Comment on above: Order Comment: Speci men Type: BLOOD SPECIMENOrdering Facility: [facility] Address: [address] [place] [address] Performed By: #### 2 4323-8, , 2776-06 ####[facility] [id number] [place] [id number] [place] Creatinine [Mass/Vol] 1.04 mg/dL High 0.58-0.96 [facility] Comment on above: Order Comment: Speci men Type: BLOOD SPECIMENOrdering Facility: [facility] Address: [address] [place] [address] Performed By: #### 2 4323-8, , 2776-06 ####[facility] [id number] [address] [address] [place] Creatinine and Glomerular filtration rate.predicted panel (S/P/Bld) 69 mL/min/1.73m??? Normal >=60 [facility] Comment on above: Order Comment: Dora finch Type: BLOOD SPECIMENOrdering Facility: [facility] Address: [address] [place] [address] Result Comment: Zeny mated Glomerular Filtration Rate [...] Performed By: #### 2 4323-8, , 2776-06 ####[facility] [id number] [place] [id number] [place] Glucose [Mass/Vol] 178 mg/dL High 74-99 [facility] Comment on above: Order Comment: Dora finch Type: BLOOD SPECIMENOrdering Facility: [facility] Address: [address] [place] [address] Result Comment: The [place] Diabetes Association (ADA) provides guidance for cutoff [...] Standards of Medical Care in Diabetes 2016, [place] [employer]. Diabetes Care. 2016.39(Suppl 1). Performed By: #### 2 4323-8, 56604-5, 2776- ####[facility] [id number] [address] [address] [place] Potassium [Moles/Vol] 3.3 mmol/L Low 3.7-5.1 [facility] Comment on above: Order Comment: Speci men Type: BLOOD SPECIMENOrdering Facility: [facility] Address: [address] [place] [address] Performed By: #### 2 4323-8, , 2776-06 ####[facility]CL[facility] [id number] [facility] [place] [id number] [place] Protein [Mass/Vol] 7.0 g/dL Normal 6.3-8.0 [facility] Comment on above: Order Comment: Speci men Type: BLOOD SPECIMENOrdering Facility: [facility] Address: [address] [place] [address] Performed By: #### 2 4323-8, , 2776-06 ####[facility] [id number] [place] [address] [place] Sodium [Moles/Vol] 138 mmol/L Normal 136-144 [facility] Comment on above: Order Comment: Speci men Type: BLOOD SPECIMENOrdering Facility: [facility] Address: [address] [place] [address] Performed By: #### 2 4323-8, , 2776-06 ####[facility] [id number] [place] [id number] [place] Urea nitrogen [Mass/Vol] 11 mg/dL Normal 7-21 [facility] Comment on above: Order Comment: Speci men Type: BLOOD SPECIMENOrdering Facility: [facility] Address: [address] [place] [address] Performed By: #### 2 4323-8, , 2776-06 ####[facility] [id number] [address] [address] [place] Fact Xa PPP-aCncon 5 Coagulation factor X activated act Coag Qn (PPP) 0.31 IU/mL High <0.10 [facility] Comment on above: Order Comment: Speci men Type: BLOOD SPECIMENOrdering Facility: [facility] Address: [address] [place] [address] Result Comment: The recommended therapeutic range for treatment of venous and arterial thrombosis with intravenous unfractionated heparin is an anti Xa activity level of 0.3 to 0.7 IU/mL. In patients with concomitant therapy with thrombolytic agents and/or platelet glycoprotein IIb/IIIa antagonists, the recommended therapeutic range is an anti Xa activity level of 0.2 to 0.5 IU/mL. Performed By: #### 3 217-7 ####[facility] [id number] [place] [address] [place] Magnesium SerPl-mCncon 12-07 Magnesium [Mass/Vol] 2.0 mg/dL Normal 1.7-2.3 [facility] Comment on above: Order Comment: Speci men Type: BLOOD SPECIMENOrdering Facility: [facility] Address: [address] [place] [address] Performed By: #### 2 4323-8, 56134-7, 2777-1 ####[facility] [id number] [place] [address] [place] NUTRITIONon 12-07-2024 NUTRITION Normal [facility] PTT, ANTICOAGULANT THERAPYon 12-07-2024 aPTT Coag (PPP) [Time] 47.4 s High 23.0-32.4 [facility] Comment on above: Order Comment: Speci men Type: BLOOD SPECIMENOrdering Facility: [facility] Address: [address] [place] [address] Performed By: #### P TTAC ####[facility] [id number] [address] [place] aPTT Coag (PPP) [Time] 41.6 s High 23.0-32.4 [facility] Comment on above: Order Comment: Speci men Type: BLOOD SPECIMENOrdering Facility: [facility] Address: [address] [place] [address] Result Comment: Inte rpret with caution. Sample centrifuged greater than 1 hour from collection time. According to Clinical and Laboratory Standards [place] guidelines, results could be falsely decreased due to heparin neutralization by in vitro release of platelet factor 4. Suggest correlation with clinical findings and redraw if indicated. Performed By: #### P TTAC ####[facility] [id number] [place] [address] [place] Phosphate SerPl-mCncon 12-07 Phosphate [Mass/Vol] 4.5 mg/dL Normal 2.7-4.8 [facility] Comment on above: Order Comment: Speci men Type: BLOOD SPECIMENOrdering Facility: [facility] Address: [address] [place] [address] Performed By: #### 2 4323-8, 65771-0, 2777-1 ####[facility] LABCL[facility] [id number] [place] [id number] [place] ALLIED HEALTHon 12-06-2024 ALLIED HEALTH Normal [facility] ALLIED HEALTH Normal [facility] ANES POSTPROC EVALon 025 ANES POSTPROC EVAL Normal [facility] ANES PRE-OPon 12-06-2024 ANES PRE-OP Normal [facility] CASE MANAGEMon 12-06-2024 CASE MANAGEM Normal [facility] CBC panel Auto (Bld)on 12-06 Erythrocyte distribution width (RBC) [Ratio] 19.8 % High 11.5-15.0 [facility] Comment on above: Order Comment: Speci men Type: BLOOD SPECIMENOrdering Facility: [facility] Address: [address] [place] [address] Performed By: #### 5 8410-2 ####[facility]CL[facility] [id number] [place] [id number] [place] Hematocrit (Bld) [Volume fraction] 19.8 % Low 36.0-46.0 [facility] Comment on above: Order Comment: Speci men Type: BLOOD SPECIMENOrdering Facility: [facility] Address: [address] [place] [address] Performed By: #### 5 8410-2 ####[facility] LABIA [id number] [place] [address] [place] Hemoglobin (Bld) [Mass/Vol] 6.3 g/dL Low 11.5-15.5 [facility] Comment on above: Order Comment: Speci men Type: BLOOD SPECIMENOrdering Facility: [facility] Address: [address] [place] [address] Performed By: #### 5 8410-2 ####[facility] [id number] [place] [address] [place] MCH (RBC) [Entitic mass] 26.1 pg Normal 26.0-34.0 [facility] Comment on above: Order Comment: Speci men Type: BLOOD SPECIMENOrdering Facility: [facility] Address: [address] [place] [address] Performed By: #### 5 8410-2 ####[facility] [id number] [address] [place] MCHC (RBC) [Mass/Vol] 31.8 g/dL Normal 30.5-36.0 [facility] Comment on above: Order Comment: Speci men Type: BLOOD SPECIMENOrdering Facility: [facility] Address: [address] [place] [address] Performed By: #### 5 8410-2 ####[facility] [id number] [place] [address] [place] MCV (RBC) [Entitic vol] 82.2 fL Normal 80.0-100.0 [facility] Comment on above: Order Comment: Speci men Type: BLOOD SPECIMENOrdering Facility: [facility] Address: [address] [place] [address] Performed By: #### 5 8410-2 ####[facility]CL[facility] [id number] [address] [place] [address] [place] Nucleated RBC (Bld) [#/Vol] 10*3/uL Normal <0.01 [facility] Comment on above: Order Comment: Speci men Type: BLOOD SPECIMENOrdering Facility: [facility] Address: [address] [place] [address] Performed By: #### 5 8410-2 ####[facility] LABIA [id number] [address], [facility]95 [place] Platelet mean volume (Bld) [Entitic vol] 8.9 fL Low 9.0-12.7 [facility] Comment on above: Order Comment: Speci men Type: BLOOD SPECIMENOrdering Facility: [facility] Address: [address] [place] [address] Performed By: #### 5 8410-2 ####[facility] LABIA [id number] [place] [address] [place] Platelets (Bld) [#/Vol] 496 10*3/uL High 150-400 [facility] Comment on above: Order Comment: Speci men Type: BLOOD SPECIMENOrdering Facility: [facility] Address: [address] [place] [address] Performed By: #### 5 8410-2 ####[facility] LABIA [id number] [place] [address] [place] RBC (Bld) [#/Vol] 2.41 10*6/uL Low 3.90-5.20 [facility] Comment on above: Order Comment: Speci men Type: BLOOD SPECIMENOrdering Facility: [facility] Address: [address] [place] [address] Performed By: #### 5 8410-2 ####[facility] LABIA [id number] [place] [id number] [place] WBC (Bld) [#/Vol] 8.40 10*3/uL Normal 3.70-11.00 [facility] Comment on above: Order Comment: Speci men Type: BLOOD SPECIMENOrdering Facility: [facility] Address: [address] [place] [address] Performed By: #### 5 8410-2 ####[facility] LABCLIA [id number] [place] [address] [place] Erythrocyte distribution width (RBC) [Ratio] 19.0 % High 11.5-15.0 [facility] Comment on above: Order Comment: Speci men Type: BLOOD SPECIMENOrdering Facility: [facility] Address: [address] [place] [address] Performed By: #### 5 8410-2 ####[facility]CLIA [id number] [address] [place] Hematocrit (Bld) [Volume fraction] 29.1 % Low 36.0-46.0 [facility] Comment on above: Order Comment: Speci men Type: BLOOD SPECIMENOrdering Facility: [facility] Address: [address] [place] [address] Performed By: #### 5 8410-2 ####[facility]CL[facility] [id number] [place] [address] [place] Hemoglobin (Bld) [Mass/Vol] 9.1 g/dL Low 11.5-15.5 [facility] Comment on above: Order Comment: Speci men Type: BLOOD SPECIMENOrdering Facility: [facility] Address: [address] [place] [address] Performed By: #### 5 8410-2 ####[facility]CL[facility] [id number] [place] [id number] [place] MCH (RBC) [Entitic mass] 25.7 pg Low 26.0-34.0 [facility] Comment on above: Order Comment: Speci men Type: BLOOD SPECIMENOrdering Facility: [facility] Address: [address] [place] [address] Performed By: #### 5 8410-2 ####[facility] [id number] [address] [place] MCHC (RBC) [Mass/Vol] 31.3 g/dL Normal 30.5-36.0 [facility] Comment on above: Order Comment: Speci men Type: BLOOD SPECIMENOrdering Facility: [facility] Address: [address] [place] [address] Performed By: #### 5 8410-2 ####[facility] [id number] [place] [address] [place] MCV (RBC) [Entitic vol] 82.2 fL Normal 80.0-100.0 [facility] Comment on above: Order Comment: Speci men Type: BLOOD SPECIMENOrdering Facility: [facility] Address: [address] [place] [address] Performed By: #### 5 8410-2 ####[facility] [id number] [place] [address] [place] Nucleated RBC (Bld) [#/Vol] 10*3/uL Normal <0.01 [facility] Comment on above: Order Comment: Speci men Type: BLOOD SPECIMENOrdering Facility: [facility] Address: [address] [place] [address] Performed By: #### 5 8410-2 ####[facility] [id number] [place] [address] [place] Platelet mean volume (Bld) [Entitic vol] 9.3 fL Normal 9.0-12.7 [facility] Comment on above: Order Comment: Speci men Type: BLOOD SPECIMENOrdering Facility: [facility] Address: [address] [place] [address] Performed By: #### 5 8410-2 ####[facility]CL[facility] [id number] [place] [address] [place] Platelets (Bld) [#/Vol] 474 10*3/uL High 150-400 [facility] Comment on above: Order Comment: Speci men Type: BLOOD SPECIMENOrdering Facility: [facility] Address: [address] [place] [address] Performed By: #### 5 8410-2 ####[facility] LABIA [id number] [place] [address] [place] RBC (Bld) [#/Vol] 3.54 10*6/uL Low 3.90-5.20 [facility] Comment on above: Order Comment: Speci men Type: BLOOD SPECIMENOrdering Facility: [facility] Address: [address] [place] [address] Performed By: #### 5 8410-2 ####[facility] [id number] [place] [address] [place] WBC (Bld) [#/Vol] 8.80 10*3/uL Normal 3.70-11.00 [facility] Comment on above: Order Comment: Speci men Type: BLOOD SPECIMENOrdering Facility: [facility] Address: [address] [place] [address] Performed By: #### 5 8410-2 ####[facility] LABIA [id number] [place] [address] [place] CK SerPl-cCncon 12-06-2024 CK [Catalytic activity/Vol] 9 U/L Low 42-196 [facility] Comment on above: Order Comment: Speci men Type: BLOOD SPECIMENOrdering Facility: [facility] Address: [address] [place] [address] Performed By: #### 2 157-6, 40161-7, 89915-2, 2777-1 ####[facility] LABIA [id number] [address] [address] [place] CONSULT PROGon 12-06-2024 CONSULT PROG Normal [facility] Comprehensive metabolic 2000 panelon 12-06-2024 Albumin [Mass/Vol] 3.3 g/dL Low 3.9-4.9 [facility] Comment on above: Order Comment: Speci men Type: BLOOD SPECIMENOrdering Facility: [facility] Address: [address] [place] [address] Performed By: #### 2 157-6, 00199-8, 82074-7, 2776- ####[facility] LABCLIA [id number] [place] [id number] [place] ALP [Catalytic activity/Vol] 191 U/L High 34-123 [facility] Comment on above: Order Comment: Speci men Type: BLOOD SPECIMENOrdering Facility: [facility] Address: [address] [place] [address] Performed By: #### 2 157-6, 13054-2, 27151-2, 2776- ####[facility] LABIA [id number] [place] [id number] [place] ALT [Catalytic activity/Vol] 44 U/L High 7-38 [facility] Comment on above: Order Comment: Speci men Type: BLOOD SPECIMENOrdering Facility: [facility] Address: [address] [place] [address] Performed By: #### 2 157-6, 72311-8, 28250-0, 2776- ####[facility] LABIA [id number] [address] [address] [place] Anion gap [Moles/Vol] 12 mmol/L Normal 8-15 [facility] Comment on above: Order Comment: Speci men Type: BLOOD SPECIMENOrdering Facility: [facility] Address: [address] [place] [address] Performed By: #### 2 157-6, 20691-8, 11227-8, 2777-1 ####[facility] LABCL[facility] [id number] [address] [address] [place] AST [Catalytic activity/Vol] 36 U/L High 13-35 [facility] Comment on above: Order Comment: Speci men Type: BLOOD SPECIMENOrdering Facility: [facility] Address: [address] [place] [address] Performed By: #### 2 157-6, 10568-7, , 2776-06 ####[facility]CL[facility] [id number] [address] [address] [place] Bilirubin [Mass/Vol] 0.7 mg/dL Normal 0.2-1.3 [facility] Comment on above: Order Comment: Speci men Type: BLOOD SPECIMENOrdering Facility: [facility] Address: [address] [place] [address] Performed By: #### 2 157-6, 70932-2, , 2776-06 ####[facility] LABIA [id number] [address] [address] [place] Calcium [Mass/Vol] 8.8 mg/dL Normal 8.5-10.2 [facility] Comment on above: Order Comment: Speci men Type: BLOOD SPECIMENOrdering Facility: [facility] Address: [address] [place] [address] Performed By: #### 2 157-6, 12997-2, , 2776-06 ####[facility] LABCLIA [id number] [address] [address] [place] Chloride [Moles/Vol] 102 mmol/L Normal 98-107 [facility] Comment on above: Order Comment: Speci men Type: BLOOD SPECIMENOrdering Facility: [facility] Address: [address] [place] [address] Performed By: #### 2 157-6, 11982-1, 44502-7, 2777-1 ####[facility] LABIA [id number] [address] [address] [place] CO2 [Moles/Vol] 22 mmol/L Normal 22-30 [facility] Comment on above: Order Comment: Speci men Type: BLOOD SPECIMENOrdering Facility: [facility] Address: [address] [place] [address] Performed By: #### 2 157-6, 15452-8, 74426-8, 2776- ####[facility]IA [id number] [address] [address] [place] Creatinine [Mass/Vol] 0.95 mg/dL Normal 0.58-0.96 [facility] Comment on above: Order Comment: Speci men Type: BLOOD SPECIMENOrdering Facility: [facility] Address: [address] [place] [address] Performed By: #### 2 157-6, 52414-2, , 2776- ####[facility] [id number] [address] [address] [place] Creatinine and Glomerular filtration rate.predicted panel (S/P/Bld) 77 mL/min/1.73m??? Normal >=60 [facility] Comment on above: Order Comment: Speci men Type: BLOOD SPECIMENOrdering Facility: [facility] Address: [address] [place] [address] Result Comment: Zeny mated Glomerular Filtration Rate [...] actual GFR. Performed By: #### 2 157-6, 53877-8, 50484-6, 2777-1 ####[facility] LABIA [id number] [address] [address] [place] Glucose [Mass/Vol] 136 mg/dL High 74-99 [facility] Comment on above: Order Comment: Speci men Type: BLOOD SPECIMENOrdering Facility: [facility] Address: [address] [place] [address] Result Comment: The [place] [employer] (ADA) provides guidance for cutoff [...] Standards of Medical Care in Diabetes 2016, [place] [employer]. Diabetes Care. 2016.39(Suppl 1). Performed By: #### 2 157-6, 07389-2, 01654-6, 7- ####[facility] LABCL[facility] [id number] [place] [address] [place] Potassium [Moles/Vol] 3.8 mmol/L Normal 3.7-5.1 [facility] Comment on above: Order Comment: Speci men Type: BLOOD SPECIMENOrdering Facility: [facility] Address: [address] [place] [address] Performed By: #### 2 157-6, 46713-7, 36011-4, 7-1 ####[facility]CL[facility] [id number] [place] [id number] [place] Protein [Mass/Vol] 6.6 g/dL Normal 6.3-8.0 [facility] Comment on above: Order Comment: Speci men Type: BLOOD SPECIMENOrdering Facility: [facility] Address: [address] [place] [address] Performed By: #### 2 157-6, 84409-4, 57478-4, 7-1 ####[facility]IA [id number] [place] [address] [place] Sodium [Moles/Vol] 136 mmol/L Normal 136-144 [facility] Comment on above: Order Comment: Speci men Type: BLOOD SPECIMENOrdering Facility: [facility] Address: [address] [place] [address] Performed By: #### 2 157-6, 22634-1, 71097-3, 2777-1 ####[facility] LABIA [id number] [place] [address] [place] Urea nitrogen [Mass/Vol] 12 mg/dL Normal 7-21 [facility] Comment on above: Order Comment: Speci men Type: BLOOD SPECIMENOrdering Facility: [facility] Address: [address] [place] [address] Performed By: #### 2 157-6, 46775-3, 03404-6, 2777-1 ####[facility] [id number] [place] [address] [place] Fact Xa PPP-aCncon 5 Coagulation factor X activated act Coag Qn (PPP) 0.64 IU/mL High <0.10 [facility] Comment on above: Order Comment: Speci men Type: BLOOD SPECIMENOrdering Facility: [facility] Address: [address] [place] [address] Result Comment: The recommended therapeutic range for treatment of venous and arterial thrombosis with intravenous unfractionated heparin is an anti Xa activity level of 0.3 to 0.7 IU/mL. In patients with concomitant therapy with thrombolytic agents and/or platelet glycoprotein IIb/IIIa antagonists, the recommended therapeutic range is an anti Xa activity level of 0.2 to 0.5 IU/mL. Performed By: #### 3 217-7 ####[facility]IA [id number] [place] [id number] [place] Coagulation factor X activated act Coag Qn (PPP) 0.48 IU/mL High <0.10 [facility] Comment on above: Order Comment: Dora finch Type: BLOOD SPECIMENOrdering Facility: [facility] Address: [address] [place] [address] Result Comment: The recommended therapeutic range for treatment of venous and arterial thrombosis with intravenous unfractionated heparin is an anti Xa activity level of 0.3 to 0.7 IU/mL. In patients with concomitant therapy with thrombolytic agents and/or platelet glycoprotein IIb/IIIa antagonists, the recommended therapeutic range is an anti Xa activity level of 0.2 to 0.5 IU/mL. Performed By: #### 3 217-7 ####[facility] [id number] [place] [address] [place] HISTORY PHYSICALon HISTORY PHYSICAL Normal [facility] Magnesium SerPl-mCncon 12-06 Magnesium [Mass/Vol] 1.5 mg/dL Low 1.7-2.3 [facility] Comment on above: Order Comment: Dora finch Type: BLOOD SPECIMENOrdering Facility: [facility] Address: [address] [place] [address] Performed By: #### 2 157-6, 10631-8, 20698-8, 2777-1 ####[facility]IA [id number] [place] [address] [place] NUTRITIONon 12-06-2024 NUTRITION Normal [facility] PT EDon 12-06-2024 PT ED Normal [facility] PT panel Coag (PPP)on 2024 INR Coag (PPP) [Relative time] 1.1 {INR} Normal 0.9-1.3 [facility] Comment on above: Order Comment: Dora finch Type: BLOOD SPECIMENOrdering Facility: [facility] Address: [address] [place] [address] Result Comment: Yamileth min K Antagonist (VKA) Therapeutic Range: INR 2 to 3 (Target INR of 2.5)Note: For patients treated with VKA drugs, such as warfarin, the [employer] 2012 Guideline recommends [...] al. Chest 2012, 141:7S-47SMarkel RA, et al. [facility] 2017, 70: 252-289 Performed By: #### 3 4528-0, 12110-0 ####[facility] [id number] [place] [address] [place] PT Coag (PPP) [Time] 11.9 s Normal 9.7-13.0 [facility] Comment on above: Order Comment: Speci men Type: BLOOD SPECIMENOrdering Facility: [facility] Address: [address] [place] [address] Performed By: #### 3 4528-0, 23199-9 ####[facility] [id number] [place] [address] [place] PTT, ANTICOAGULANT THERAPYon 12-06-2024 aPTT Coag (PPP) [Time] 58.4 s High 23.0-32.4 [facility] Comment on above: Order Comment: Speci men Type: BLOOD SPECIMENOrdering Facility: [facility] Address: [address] [place] [address] Performed By: #### P TTAC ####[facility] [id number] [place] [address] [place] Phosphate SerPl-mCncon 12-06 Phosphate [Mass/Vol] 2.8 mg/dL Normal 2.7-4.8 [facility] Comment on above: Order Comment: Speci men Type: BLOOD SPECIMENOrdering Facility: [facility] Address: [address] [place] [address] Performed By: #### 2 157-6, 86354-0, 05608-1, 2777-1 ####[facility] [id number] [place] [id number] [place] aPTT PPPon 12-06-2024 aPTT Coag (PPP) [Time] 53.0 s High 23.0-32.4 [facility] Comment on above: Order Comment: Speci men Type: BLOOD SPECIMENOrdering Facility: [facility] Address: [address] [place] [address] Performed By: #### 3 4528-0, 29143-6 ####[facility] [id number] [place] [id number] [place] ALLIED HEALTHon 12-05-2024 ALLIED HEALTH Normal [facility] ANES POSTPROC EVALon 025 ANES POSTPROC EVAL Normal [facility] ANES PRE-OPon 12-05-2024 ANES PRE-OP Normal [facility] CASE MANAGEMon 12-05-2024 CASE MANAGEM Normal [facility] CBC panel Auto (Bld)on 12-05 Hematocrit (Bld) [Volume fraction] 29.6 % Low 36.0-46.0 [facility] Comment on above: Order Comment: Speci men Type: BLOOD SPECIMENOrdering Facility: [facility] Address: [address] [place] [address] Performed By: #### 5 8410-2 ####[facility] [id number] [place] [id number] [place] Hemoglobin (Bld) [Mass/Vol] 9.0 g/dL Low 11.5-15.5 [facility] Comment on above: Order Comment: Speci men Type: BLOOD SPECIMENOrdering Facility: [facility] Address: [address] [place] [address] Performed By: #### 5 8410-2 ####[facility] [id number] [address], [place] [address] [place] MCH (RBC) [Entitic mass] 25.4 pg Low 26.0-34.0 [facility] Comment on above: Order Comment: Speci men Type: BLOOD SPECIMENOrdering Facility: [facility] Address: [address] [place] [address] Performed By: #### 5 8410-2 ####[facility] [id number] [address], [place] [address] [place] MCV (RBC) [Entitic vol] 83.4 fL Normal 80.0-100.0 [facility] Comment on above: Order Comment: Speci men Type: BLOOD SPECIMENOrdering Facility: [facility] Address: [address] [place] [address] Performed By: #### 5 8410-2 ####[facility] [id number] [place] [address] [place] Nucleated RBC (Bld) [#/Vol] 10*3/uL Normal <0.01 [facility] Comment on above: Order Comment: Speci men Type: BLOOD SPECIMENOrdering Facility: [facility] Address: [address] [place] [address] Performed By: #### 5 8410-2 ####[facility] [id number] [place] [address] [place] Platelets (Bld) [#/Vol] 438 10*3/uL High 150-400 [facility] Comment on above: Order Comment: Speci men Type: BLOOD SPECIMENOrdering Facility: [facility] Address: [address] [place] [address] Performed By: #### 5 8410-2 ####[facility] [id number] [place] [address] [place] RBC (Bld) [#/Vol] 3.55 10*6/uL Low 3.90-5.20 [facility] Comment on above: Order Comment: Speci men Type: BLOOD SPECIMENOrdering Facility: [facility] Address: [address] [place] [address] Performed By: #### 5 8410-2 ####[facility] [id number] [place] [address] [place] WBC (Bld) [#/Vol] 6.92 10*3/uL Normal 3.70-11.00 [facility] Comment on above: Order Comment: Speci men Type: BLOOD SPECIMENOrdering Facility: [facility] Address: [address] [place] [address] Performed By: #### 5 8410-2 ####[facility] [id number] [place] [address] [place] CONSULT PROGon 12-05-2024 CONSULT PROG Normal [facility] CONSULT PROG Normal [facility] CONSULT PROG Normal [facility] Comprehensive metabolic 2000 panelon 12-05-2024 Albumin [Mass/Vol] 3.4 g/dL Low 3.9-4.9 [facility] Comment on above: Order Comment: Speci men Type: BLOOD SPECIMENOrdering Facility: [facility] Address: [address] [place] [address] Performed By: #### 2 4323-8, , 2776- ####[facility] LABCLIA [id number] [place] [id number] [place] ALP [Catalytic activity/Vol] 189 U/L High 34-123 [facility] Comment on above: Order Comment: Speci men Type: BLOOD SPECIMENOrdering Facility: [facility] Address: [address] [place] [address] Performed By: #### 2 4323-8, 24748-8, 2777-1 ####[facility] LABCLIA [id number] [address] [place] [address] [place] ALT [Catalytic activity/Vol] 41 U/L High 7-38 [facility] Comment on above: Order Comment: Speci men Type: BLOOD SPECIMENOrdering Facility: [facility] Address: [address] [place] [address] Performed By: #### 2 4323-8, 54860-4, 2776-06 ####[facility] LABCLIA [id number] [address], [facility]95 [place] Anion gap [Moles/Vol] 12 mmol/L Normal 8-15 [facility] Comment on above: Order Comment: Speci men Type: BLOOD SPECIMENOrdering Facility: [facility] Address: [address] [place] [address] Performed By: #### 2 4323-8, , 2776-06 ####[facility] LABCLIA [id number] [place] [address] [place] AST [Catalytic activity/Vol] 33 U/L Normal 13-35 [facility] Comment on above: Order Comment: Speci men Type: BLOOD SPECIMENOrdering Facility: [facility] Address: [address] [place] [address] Performed By: #### 2 4323-8, , 2776-06 ####[facility] LABCLIA [id number] [address], [facility]95 [place] Bilirubin [Mass/Vol] 0.8 mg/dL Normal 0.2-1.3 [facility] Comment on above: Order Comment: Speci men Type: BLOOD SPECIMENOrdering Facility: [facility] Address: [address] [place] [address] Performed By: #### 2 4323-8, , 2776-06 ####[facility] LABCLIA [id number] [address] [address] [place] Calcium [Mass/Vol] 9.7 mg/dL Normal 8.5-10.2 [facility] Comment on above: Order Comment: Speci men Type: BLOOD SPECIMENOrdering Facility: [facility] Address: [address] [place], [place] [address] Performed By: #### 2 4323-8, , 2776-06 ####[facility] LABCLIA [id number] [facility] [address] [place] [address] [place] Chloride [Moles/Vol] 99 mmol/L Normal 98-107 [facility] Comment on above: Order Comment: Speci men Type: BLOOD SPECIMENOrdering Facility: [facility] Address: [address] [place] [address] Performed By: #### 2 4323-8, , 2776-06 ####[facility] LABCLIA [id number] [place] [id number] [place] CO2 [Moles/Vol] 25 mmol/L Normal 22-30 [facility] Comment on above: Order Comment: Speci men Type: BLOOD SPECIMENOrdering Facility: [facility] Address: [address] [place] [address] Performed By: #### 2 4323-8, , 2776-06 ####[facility] LABCLIA [id number] [address] [place] [address] [place] Creatinine [Mass/Vol] 0.93 mg/dL Normal 0.58-0.96 [facility] Comment on above: Order Comment: Speci men Type: BLOOD SPECIMENOrdering Facility: [facility] Address: [address] [place] [address] Performed By: #### 2 4323-8, , 2776-06 ####[facility] LABCLIA [id number] [facility] [address] [place] [address] [place] Creatinine and Glomerular filtration rate.predicted panel (S/P/Bld) 79 mL/min/1.73m??? Normal >=60 [facility] Comment on above: Order Comment: Dora finch Type: BLOOD SPECIMENOrdering Facility: [facility] Address: [address] [place] [address] Result Comment: Zeny mated Glomerular Filtration Rate [...] actual GFR. Performed By: #### 2 4323-8, 23621-0, 2776-06 ####[facility] LABIA [id number] [place] [address] [place] Glucose [Mass/Vol] 91 mg/dL Normal 74-99 [facility] Comment on above: Order Comment: Dora finch Type: BLOOD SPECIMENOrdering Facility: [facility] Address: [address] [place] [address] Result Comment: The [place] [employer] (ADA) provides guidance for cutoff [...] Standards of Medical Care in Diabetes 2016, [place] [employer]. Diabetes Care. 2016.39(Suppl 1). Performed By: #### 2 4323-8, 10172-6, 2776-06 ####[facility] LABIA [id number] [address] [address] [place] Potassium [Moles/Vol] 3.8 mmol/L Normal 3.7-5.1 [facility] Comment on above: Order Comment: Speci men Type: BLOOD SPECIMENOrdering Facility: [facility] Address: [address] [place], [place] [address] Performed By: #### 2 4323-8, , 2776-06 ####[facility] LABCLIA [id number] [address] [address] [place] Protein [Mass/Vol] 6.9 g/dL Normal 6.3-8.0 [facility] Comment on above: Order Comment: Speci men Type: BLOOD SPECIMENOrdering Facility: [facility] Address: [address] [place] [address] Performed By: #### 2 4323-8, , 2776-06 ####[facility] LABCLIA [id number] [place] [id number] [place] Sodium [Moles/Vol] 136 mmol/L Normal 136-144 [facility] Comment on above: Order Comment: Speci men Type: BLOOD SPECIMENOrdering Facility: [facility] Address: [address] [place] [address] Performed By: #### 2 4323-8, , 2776-06 ####[facility] LABIA [id number] [place] [address] [place] Urea nitrogen [Mass/Vol] 9 mg/dL Normal 7-21 [facility] Comment on above: Order Comment: Speci men Type: BLOOD SPECIMENOrdering Facility: [facility] Address: [address] [place], [place] [address] Performed By: #### 2 4323-8, , 2776-06 ####[facility] LABIA [id number] [place] [id number] [place] Fact Xa PPP-aCncon 5 Coagulation factor X activated act Coag Qn (PPP) <0.10 Normal <0.10 [facility] Comment on above: Order Comment: Speci men Type: BLOOD SPECIMENOrdering Facility: [facility] Address: [address] [place] [address] Result Comment: The recommended therapeutic range for treatment of venous and arterial thrombosis with intravenous unfractionated heparin is an anti Xa activity level of 0.3 to 0.7 IU/mL. In patients with concomitant therapy with thrombolytic agents and/or platelet glycoprotein IIb/IIIa antagonists, the recommended therapeutic range is an anti Xa activity level of 0.2 to 0.5 IU/mL. Performed By: #### 3 217-7, 63764-1, 93756-3 ####[facility] [id number] [place] [address] [place] Coagulation factor X activated act Coag Qn (PPP) 0.91 IU/mL High <0.10 [facility] Comment on above: Order Comment: Dora finch Type: BLOOD SPECIMENOrdering Facility: [facility] Address: [address] [place] [address] Result Comment: The recommended therapeutic range for treatment of venous and arterial thrombosis with intravenous unfractionated heparin is an anti Xa activity level of 0.3 to 0.7 IU/mL. In patients with concomitant therapy with thrombolytic agents and/or platelet glycoprotein IIb/IIIa antagonists, the recommended therapeutic range is an anti Xa activity level of 0.2 to 0.5 IU/mL. Performed By: #### 3 217-7 ####[facility] [id number] [place] [address] [place] Coagulation factor X activated act Coag Qn (PPP) >1.50 High <0.10 [facility] Comment on above: Order Comment: Dora finch Type: BLOOD SPECIMENOrdering Facility: [facility] Address: [address] [place] [address] Result Comment: Extr ruben high heparin anti-Xa [...] 0.5 IU/mL. Performed By: #### 3 217-7, 71927-9 ####[facility] [id number] [place] [id number] [place] HISTORY PHYSICALon HISTORY PHYSICAL Normal [facility] Magnesium SerPl-mCncon 12-05 Magnesium [Mass/Vol] 1.8 mg/dL Normal 1.7-2.3 [facility] Comment on above: Order Comment: Specsammie finch Type: BLOOD SPECIMENOrdering Facility: [facility] Address: [address] [place] [address] Performed By: #### 2 4323-8, 10338-4, 2777-1 ####[facility] LABIA [id number] [place] [id number] [place] NURSING PROGon 12-05-2024 NURSING PROG Normal [facility] NURSING PROG Normal [facility] NUTRITIONon 12-05-2024 NUTRITION Normal [facility] PT panel Coag (PPP)on 2024 INR Coag (PPP) [Relative time] 1.1 {INR} Normal 0.9-1.3 [facility] Comment on above: Order Comment: Dora finch Type: BLOOD SPECIMENOrdering Facility: [facility] Address: [address] [place] [address] Result Comment: Yamileth min K Antagonist (VKA) Therapeutic Range: INR 2 to 3 (Target INR of 2.5)Note: For patients treated with VKA drugs, such as warfarin, the [employer] 2012 Guideline recommends [...] al. Chest 2012, 141:7S-47SMarkel RA, et al. [facility] 2017, 70: 252-289 Performed By: #### 3 217-7, 32120-2, 80858-7 ####[facility] [id number] [place] [id number] [place] PT Coag (PPP) [Time] 11.5 s Normal 9.7-13.0 [facility] Comment on above: Order Comment: Dora finch Type: BLOOD SPECIMENOrdering Facility: [facility] Address: [address] [place] [address] Performed By: #### 3 217-7, 68661-9, 91062-4 ####[facility] [id number] [place] [address] [place] INR Coag (PPP) [Relative time] 1.2 {INR} Normal 0.9-1.3 [facility] Comment on above: Order Comment: Dora finch Type: BLOOD SPECIMENOrdering Facility: [facility] Address: [address] [place] [address] Result Comment: Yamileth min K Antagonist (VKA) Therapeutic Range: INR 2 to 3 (Target INR of 2.5)Note: For patients treated with VKA drugs, such as warfarin, the [employer] 2012 Guideline recommends [...] al. Chest 2012, 141:7S-47SNishimura RA, et al. [facility] 2017, 70: 252-289 Performed By: #### 3 217-7, 16214-8 ####[facility] LABIA [id number] [place] [id number] [place] PT Coag (PPP) [Time] 12.4 s Normal 9.7-13.0 [facility] Comment on above: Order Comment: Speci men Type: BLOOD SPECIMENOrdering Facility: [facility] Address: [address] [place] [address] Performed By: #### 3 217-7, 16149-8 ####[facility] LABIA [id number] [place] [address] [place] Phosphate SerPl-mCncon 12-05 Phosphate [Mass/Vol] 3.9 mg/dL Normal 2.7-4.8 [facility] Comment on above: Order Comment: Speci men Type: BLOOD SPECIMENOrdering Facility: [facility] Address: [address] [place] [address] Performed By: #### 2 4323-8, 10957-0, 2777-1 ####[facility] [id number] [place] [address] [place] aPTT PPPon 12-05-2024 aPTT Coag (PPP) [Time] 26.2 s Normal 23.0-32.4 [facility] Comment on above: Order Comment: Speci men Type: BLOOD SPECIMENOrdering Facility: [facility] Address: [address] [place] [address] Performed By: #### 3 217-7, 27474-5, 91921-6 ####[facility] LABIA [id number] [address] [address] [id number] [address] [place] aPTT Coag (PPP) [Time] s High 23.0-32.4 [facility] Comment on above: Order Comment: Speci men Type: BLOOD SPECIMENOrdering Facility: [facility] Address: [address] [place] [address] Result Comment: Samp le checked for clot.Result rechecked. Performed By: #### 1 4979-9 ####[facility] LABCLIA [id number] [facility]SD[facility] [id number] [place], [place] [id number] [place] Culture, Blood (WB)on 2024 CUB Blood cultures x2, f rom two different sites No growth in 5 days. Normal [facility] Comment on above: Performed By: #### L 100.0100, L500.4050, L503.6005, L300.3900, L300.4310, M200.1000 ####[facility] [address] [place], [address] Urine Cultureon 11-25-2024 URC Normal [facility] Comment on above: Performed By: #### M 100.678, L400.0001, M100.2200 ####[facility] [address] [place], [address] Basic Metabolic Profile (BMP )on 11-24-2024 BUN Normal 4-19 [facility] Comment on above: Result Comment: Canc elled via OM: Order cancelled - Patient discharged Performed By: #### L 500.2500, L100.0100 ####[facility] [address] [place], [address] BUN/CRE Normal 10-20 [facility] Comment on above: Result Comment: Canc elled via OM: Order cancelled - Patient discharged Performed By: #### L 500.2500, L100.0100 ####[facility] [address] [place], [address] Calcium Normal 7.6-11.0 [facility] Comment on above: Result Comment: Canc elled via OM: Order cancelled - Patient discharged Performed By: #### L 500.2500, L100.0100 ####[facility] [address] [place], [address] CL Normal 98-108 [facility] Comment on above: Result Comment: Canc elled via OM: Order cancelled - Patient discharged Performed By: #### L 500.2500, L100.0100 ####[facility] [address] [place], [address] CO2 Normal 21.0-32.0 [facility] Comment on above: Result Comment: Canc elled via OM: Order cancelled - Patient discharged Performed By: #### L 500.2500, L100.0100 ####[facility] [address] [place], [address] CREAT,SERUM Normal 0.70-1.20 [facility] Comment on above: Result Comment: Canc elled via OM: Order cancelled - Patient discharged Performed By: #### L 500.2500, L100.0100 ####[facility] [address] [place], [address] eGFR Normal >60 [facility] Comment on above: Result Comment: Canc elled via OM: Order cancelled - Patient discharged Performed By: #### L 500.2500, L100.0100 ####[facility] [address] [place], [address] GAP Normal 5-15 [facility] Comment on above: Result Comment: Canc elled via OM: Order cancelled - Patient discharged Performed By: #### L 500.2500, L100.0100 ####[facility] [address] [place], [address] GLU Normal 70-99 [facility] Comment on above: Result Comment: Canc elled via OM: Order cancelled - Patient discharged Performed By: #### L 500.2500, L100.0100 ####[facility] [address] [place], [address] Potassium Normal 3.3-5.1 [facility] Comment on above: Result Comment: Canc elled via OM: Order cancelled - Patient discharged Performed By: #### L 500.2500, L100.0100 ####[facility] [address] [place], [address] Basic Metabolic Profile (BMP) Normal 133-145 [facility] Comment on above: Result Comment: Canc elled via OM: Order cancelled - Patient discharged Performed By: #### L 500.2500, L100.0100 ####[facility] [address] [place], [address] CBC W/Diff, Automatedon 05-3 Absolute Neut Normal 2.0-7.7 [facility] Comment on above: Result Comment: Canc elled via OM: Order cancelled - Patient discharged Performed By: #### L 500.2500, L100.0100 ####[facility] [address] [place], [address] HCT Normal 37-47 [facility] Comment on above: Result Comment: Canc elled via OM: Order cancelled - Patient discharged Performed By: #### L 500.2500, L100.0100 ####[facility] [address] [place], [address] HGB Normal 12.0-15.0 [facility] Comment on above: Result Comment: Canc elled via OM: Order cancelled - Patient discharged Performed By: #### L 500.2500, L100.0100 ####[facility] [address] [place], [address] MCH Normal 27.0-32.0 [facility] Comment on above: Result Comment: Canc elled via OM: Order cancelled - Patient discharged Performed By: #### L 500.2500, L100.0100 ####[facility] [address] [place], [address] MCHC Normal 32-36 [facility] Comment on above: Result Comment: Canc elled via OM: Order cancelled - Patient discharged Performed By: #### L 500.2500, L100.0100 ####[facility] [address] [place], [address] MCV Normal 81-99 [facility] Comment on above: Result Comment: Canc elled via OM: Order cancelled - Patient discharged Performed By: #### L 500.2500, L100.0100 ####[facility] [address] [place], [address] NEUT% Normal 47-70 [facility] Comment on above: Result Comment: Canc elled via OM: Order cancelled - Patient discharged Performed By: #### L 500.2500, L100.0100 ####[facility] [address] [place], [address] PLT Normal 150-450 [facility] Comment on above: Result Comment: Canc elled via OM: Order cancelled - Patient discharged Performed By: #### L 500.2500, L100.0100 ####[facility] [address] [place], [address] RBC Normal 4.2-5.4 [facility] Comment on above: Result Comment: Canc elled via OM: Order cancelled - Patient discharged Performed By: #### L 500.2500, L100.0100 ####[facility] [address] [place], [address] RDW CV Normal 11.6-14.6 [facility] Comment on above: Result Comment: Canc elled via OM: Order cancelled - Patient discharged Performed By: #### L 500.2500, L100.0100 ####[facility] [address] [place], [address] RDW SD Normal 35.1-43.9 [facility] Comment on above: Result Comment: Canc elled via OM: Order cancelled - Patient discharged Performed By: #### L 500.2500, L100.0100 ####[facility] [address] [place], [address] WBC Normal 4.4-11.0 [facility] Comment on above: Result Comment: Canc elled via OM: Order cancelled - Patient discharged Performed By: #### L 500.2500, L100.0100 ####[facility] [address] [place], [address] Basic Metabolic Profile (BMP )on 11-23-2024 BUN/CRE 7.9 RATIO Low 10-20 [facility] Comment on above: Performed By: #### L 100.0100, L500.2500 ####[facility] [address] [place], [address] Calcium [Mass/Vol] 7.5 mg/dL Low 7.6-11.0 [facility] Comment on above: Performed By: #### L 100.0100, L500.2500 ####[facility] [address] [place], [address] Chloride [Moles/Vol] 111 mmol/L High 98-108 [facility] Comment on above: Performed By: #### L 100.0100, L500.2500 ####[facility] [address] [place], [address] CO2 [Moles/Vol] 18.5 mmol/L Low 21.0-32.0 [facility] Comment on above: Performed By: #### L 100.0100, L500.2500 ####[facility] [address] [place], [address] Creatinine [Mass/Vol] 0.91 mg/dL Normal 0.70-1.20 [facility] Comment on above: Performed By: #### L 100.0100, L500.2500 ####[facility] [address] [place], [address] ECRCL 90.47 ml/min Normal 50-250 [facility] Comment on above: Performed By: #### L 100.0100, L500.2500 ####[facility] [address] [place], [address] GAP 9 Normal 5-15 [facility] Comment on above: Performed By: #### L 100.0100, L500.2500 ####[facility] [address] [place], [address] GFR/1.73 sq M.predicted among non-blacks MDRD (S/P/Bld) [Vol rate/Area] 81 mL/min/{1.73_m2} Normal >60 [facility] Comment on above: Result Comment: mL/m in/1.73m2 CKD-EPI Creatinine Equation (2020) Performed By: #### L 100.0100, L500.2500 ####[facility] [address] [place], [address] Glucose [Mass/Vol] 111 mg/dL High 70-99 [facility] Comment on above: Performed By: #### L 100.0100, L500.2500 ####[facility] [address] [place], [address] Potassium [Moles/Vol] 3.2 mmol/L Low 3.3-5.1 [facility] Comment on above: Performed By: #### L 100.0100, L500.2500 ####[facility] [address] [place], [address] Sodium [Moles/Vol] 139 mmol/L Normal 133-145 [facility] Comment on above: Performed By: #### L 100.0100, L500.2500 ####[facility] [address] [place], [address] Urea nitrogen [Mass/Vol] 7 mg/dL Normal 4-19 [facility] Comment on above: Performed By: #### L 100.0100, L500.2500 ####[facility] [address] [place], [address] CBC W/Diff, Automatedon 10-27 OVALOCYTE 1+ Normal [facility] Comment on above: Performed By: #### L 100.0100, L500.2500 ####[facility] [address] [place], [address] PLT EST A Normal ADEQ [facility] Comment on above: Performed By: #### L 100.0100, L500.2500 ####[facility] [address] [place], [address] ATYPICAL LYMPH 1+ Normal [facility] Comment on above: Performed By: #### L 100.0100, L500.2500 ####[facility] [address] [place], [address] Basic Metabolic Profile (BMP )on 11-22-2024 BUN/CRE 14.4 RATIO Normal 10-20 [facility] Comment on above: Performed By: #### L 100.0100, L500.2500, L501.2300, L501.5200 ####[facility] [address] [place], [address] Calcium [Mass/Vol] 8.5 mg/dL Normal 7.6-11.0 [facility] Comment on above: Performed By: #### L 100.0100, L500.2500, L501.2300, L501.5200 ####[facility] [address] [place], [address] Chloride [Moles/Vol] 107 mmol/L Normal 98-108 [facility] Comment on above: Performed By: #### L 100.0100, L500.2500, L501.2300, L501.5200 ####[facility] [address] [place], [address] CO2 [Moles/Vol] 18.4 mmol/L Low 21.0-32.0 [facility] Comment on above: Performed By: #### L 100.0100, L500.2500, L501.2300, L501.5200 ####[facility] [address] [place], [address] Creatinine [Mass/Vol] 1.24 mg/dL High 0.70-1.20 [facility] Comment on above: Performed By: #### L 100.0100, L500.2500, L501.2300, L501.5200 ####[facility] [address] [place], [address] ECRCL 66.39 ml/min Normal 50-250 [facility] Comment on above: Performed By: #### L 100.0100, L500.2500, L501.2300, L501.5200 ####[facility] [address] [place], [address] GAP 11 Normal 5-15 [facility] Comment on above: Performed By: #### L 100.0100, L500.2500, L501.2300, L501.5200 ####[facility] [address] [place], [address] GFR/1.73 sq M.predicted among non-blacks MDRD (S/P/Bld) [Vol rate/Area] 56 mL/min/{1.73_m2} Low >60 [facility] Comment on above: Result Comment: mL/m in/1.73m2 CKD-EPI Creatinine Equation (2020) Performed By: #### L 100.0100, L500.2500, L501.2300, L501.5200 ####[facility] [address] [place], [address] Glucose [Mass/Vol] 101 mg/dL High 70-99 [facility] Comment on above: Performed By: #### L 100.0100, L500.2500, L501.2300, L501.5200 ####[facility] [address] [place], [address] Potassium [Moles/Vol] 3.4 mmol/L Normal 3.3-5.1 [facility] Comment on above: Performed By: #### L 100.0100, L500.2500, L501.2300, L501.5200 ####[facility] [address] [place], [address] Sodium [Moles/Vol] 137 mmol/L Normal 133-145 [facility] Comment on above: Performed By: #### L 100.0100, L500.2500, L501.2300, L501.5200 ####[facility] [address] [place], [address] Urea nitrogen [Mass/Vol] 18 mg/dL Normal 4-19 [facility] Comment on above: Performed By: #### L 100.0100, L500.2500, L501.2300, L501.5200 ####[facility] [address] [place], [address] CBC W/Diff, Automatedon 05-2 PATH REV Reviewed Normal [facility] Comment on above: Result Comment: SEE REPORT IN PATIENT'S EMR AMENDED REPORT 11/22/24 1421 PATH REV previously reported as: October bianca Performed By: #### L 300.3900, L300.4310, L503.6005, L500.4050, L501.4021, L503.7505, L100.0100, M200.1000 ####[facility] [address] [place], [address] Absolute Lymph 1.71 X10 3/uL Normal 0.83-4.51 [facility] Comment on above: Performed By: #### L 100.0100, L500.2500, L501.2300, L501.5200 ####[facility] [address] [place], [address] Absolute Neut 3.9 X10 3/uL Normal 2.0-7.7 [facility] Comment on above: Performed By: #### L 100.0100, L500.2500, L501.2300, L501.5200 ####[facility] [address] [place], [address] Basophils/100 WBC (Bld) 0.6 % Normal 0-1 [facility] Comment on above: Performed By: #### L 100.0100, L500.2500, L501.2300, L501.5200 ####[facility] [address] [place], [address] Eosinophils/100 WBC (Bld) 3.0 % Normal 0-5 [facility] Comment on above: Performed By: #### L 100.0100, L500.2500, L501.2300, L501.5200 ####[facility] [address] [place], [address] Erythrocyte distribution width (RBC) [Ratio] 16.2 % High 11.6-14.6 [facility] Comment on above: Performed By: #### L 100.0100, L500.2500, L501.2300, L501.5200 ####[facility] [address] [place], [address] Hematocrit (Bld) [Volume fraction] 27.7 % Low 37-47 [facility] Comment on above: Performed By: #### L 100.0100, L500.2500, L501.2300, L501.5200 ####[facility] [address] [place], [address] Hemoglobin (Bld) [Mass/Vol] 8.7 g/dL Low 12.0-15.0 [facility] Comment on above: Performed By: #### L 100.0100, L500.2500, L501.2300, L501.5200 ####[facility] [address] [place], [address] IG% 0.300 Normal 0.0-0.9 [facility] Comment on above: Result Comment: IG% - Immature Granulocytes (promyelocytes, myelocytes andmetamyelocytes) > 1% indicates that a LEFT SHIFT is Present. Performed By: #### L 100.0100, L500.2500, L501.2300, L501.5200 ####[facility] [address] [place], [address] Lymphocytes/100 WBC (Bld) 26.9 % Normal 19-41 [facility] Comment on above: Performed By: #### L 100.0100, L500.2500, L501.2300, L501.5200 ####[facility] [address] [place], [address] MCH (RBC) [Entitic mass] 25.1 pg Low 27.0-32.0 [facility] Comment on above: Performed By: #### L 100.0100, L500.2500, L501.2300, L501.5200 ####[facility] [address] [place], [address] MCHC (RBC) [Mass/Vol] 31.4 g/dL Low 32-36 [facility] Comment on above: Performed By: #### L 100.0100, L500.2500, L501.2300, L501.5200 ####[facility] [address] [place], [address] MCV (RBC) [Entitic vol] 79.8 fL Low 81-99 [facility] Comment on above: Performed By: #### L 100.0100, L500.2500, L501.2300, L501.5200 ####[facility] [address] [place], [address] Monocytes/100 WBC (Bld) 8.2 % Normal 0-10 [facility] Comment on above: Performed By: #### L 100.0100, L500.2500, L501.2300, L501.5200 ####[facility] [address] [place], [address] Neutrophils/100 WBC (Bld) 61.0 % Normal 47-70 [facility] Comment on above: Performed By: #### L 100.0100, L500.2500, L501.2300, L501.5200 ####[facility] [address] [place], [address] Nucleated RBC (Bld) [#/Vol] 0 10*3/uL Normal 0-5 [facility] Comment on above: Performed By: #### L 100.0100, L500.2500, L501.2300, L501.5200 ####[facility] [address] [place], [address] Platelet mean volume (Bld) [Entitic vol] 8.8 fL Normal 6.2-12.0 [facility] Comment on above: Performed By: #### L 100.0100, L500.2500, L501.2300, L501.5200 ####[facility] [address] [place], [address] Platelets (Bld) [#/Vol] 351 10*3/uL Normal 150-450 [facility] Comment on above: Performed By: #### L 100.0100, L500.2500, L501.2300, L501.5200 ####[facility] [address] [place], [address] RBC (Bld) [#/Vol] 3.47 10*6/uL Low 4.2-5.4 [facility] Comment on above: Performed By: #### L 100.0100, L500.2500, L501.2300, L501.5200 ####[facility] [address] [place], [address] RDW SD 46.9 fl High 35.1-43.9 [facility] Comment on above: Performed By: #### L 100.0100, L500.2500, L501.2300, L501.5200 ####[facility] [address] [place], [address] WBC (Bld) [#/Vol] 6.4 10*3/uL Normal 4.4-11.0 [facility] Comment on above: Performed By: #### L 100.0100, L500.2500, L501.2300, L501.5200 ####[facility] [address] [place], [address] Magnesiumon 11-22-2024 Magnesium [Mass/Vol] 1.3 mg/dL Low 1.5-2.2 [facility] Comment on above: Performed By: #### L 100.0100, L500.2500, L501.2300, L501.5200 ####[facility] [address] [place], [address] Phosphoruson 11-22-2024 Phosphate [Mass/Vol] 2.7 mg/dL Normal 2.7-4.5 [facility] Comment on above: Performed By: #### L 100.0100, L500.2500, L501.2300, L501.5200 ####[facility] [address] [place], [address] Basic Metabolic Profile (BMP )on 11-21-2024 BUN/CRE 11.9 RATIO Normal 10-20 [facility] Comment on above: Performed By: #### L 100.0100, L500.2500 ####[facility] [address] [place], [address] Calcium [Mass/Vol] 9.1 mg/dL Normal 7.6-11.0 [facility] Comment on above: Performed By: #### L 100.0100, L500.2500 ####[facility] [address] [place], [address] Chloride [Moles/Vol] 95 mmol/L Low 98-108 [facility] Comment on above: Performed By: #### L 100.0100, L500.2500 ####[facility] [address] [place], [address] CO2 [Moles/Vol] 15.6 mmol/L Low 21.0-32.0 [facility] Comment on above: Performed By: #### L 100.0100, L500.2500 ####[facility] [address] [place], [address] Creatinine [Mass/Vol] 2.69 mg/dL High 0.70-1.20 [facility] Comment on above: Performed By: #### L 100.0100, L500.2500 ####[facility] [address] [place], [address] ECRCL 30.60 ml/min Low 50-250 [facility] Comment on above: Performed By: #### L 100.0100, L500.2500 ####[facility] [address] [place], [address] GAP 17 High 5-15 [facility] Comment on above: Performed By: #### L 100.0100, L500.2500 ####[facility] [address] [place], [address] GFR/1.73 sq M.predicted among non-blacks MDRD (S/P/Bld) [Vol rate/Area] 22 mL/min/{1.73_m2} Low >60 [facility] Comment on above: Result Comment: mL/m in/1.73m2 CKD-EPI Creatinine Equation (2020) Performed By: #### L 100.0100, L500.2500 ####[facility] [address] [place], [address] Glucose [Mass/Vol] 127 mg/dL High 70-99 [facility] Comment on above: Performed By: #### L 100.0100, L500.2500 ####[facility] [address] [place], [address] Potassium [Moles/Vol] 3.6 mmol/L Normal 3.3-5.1 [facility] Comment on above: Performed By: #### L 100.0100, L500.2500 ####[facility] [address] [place], [address] Sodium [Moles/Vol] 128 mmol/L Low 133-145 [facility] Comment on above: Performed By: #### L 100.0100, L500.2500 ####[facility] [address] [place], [address] Urea nitrogen [Mass/Vol] 32 mg/dL High 4-19 [facility] Comment on above: Performed By: #### L 100.0100, L500.2500 ####[facility] [address] [place], [address] CBC W/Diff, Automatedon 05-2 Absolute Lymph 2.24 X10 3/uL Normal 0.83-4.51 [facility] Comment on above: Performed By: #### L 100.0100, L500.2500 ####[facility] [address] [place], [address] Absolute Neut 5.3 X10 3/uL Normal 2.0-7.7 [facility] Comment on above: Performed By: #### L 100.0100, L500.2500 ####[facility] [address] [place], [address] Basophils/100 WBC (Bld) 0.6 % Normal 0-1 [facility] Comment on above: Performed By: #### L 100.0100, L500.2500 ####[facility] [address] [place], [address] Eosinophils/100 WBC (Bld) 1.9 % Normal 0-5 [facility] Comment on above: Performed By: #### L 100.0100, L500.2500 ####[facility] [address] [place], [address] Erythrocyte distribution width (RBC) [Ratio] 16.3 % High 11.6-14.6 [facility] Comment on above: Performed By: #### L 100.0100, L500.2500 ####[facility] [address] [place], [address] Hematocrit (Bld) [Volume fraction] 30.2 % Low 37-47 [facility] Comment on above: Performed By: #### L 100.0100, L500.2500 ####[facility] [address] [place], [address] Hemoglobin (Bld) [Mass/Vol] 9.5 g/dL Low 12.0-15.0 [facility] Comment on above: Performed By: #### L 100.0100, L500.2500 ####[facility] [address] [place], [address] IG% 0.500 Normal 0.0-0.9 [facility] Comment on above: Result Comment: IG% - Immature Granulocytes (promyelocytes, myelocytes andmetamyelocytes) > 1% indicates that a LEFT SHIFT is Present. Performed By: #### L 100.0100, L500.2500 ####[facility] [address] [place], [address] Lymphocytes/100 WBC (Bld) 26.5 % Normal 19-41 [facility] Comment on above: Performed By: #### L 100.0100, L500.2500 ####[facility] [address] [place], [address] MCH (RBC) [Entitic mass] 24.7 pg Low 27.0-32.0 [facility] Comment on above: Performed By: #### L 100.0100, L500.2500 ####[facility] [address] [place], [address] MCHC (RBC) [Mass/Vol] 31.5 g/dL Low 32-36 [facility] Comment on above: Performed By: #### L 100.0100, L500.2500 ####[facility] [address] [place], [address] MCV (RBC) [Entitic vol] 78.6 fL Low 81-99 [facility] Comment on above: Performed By: #### L 100.0100, L500.2500 ####[facility] [address] [place], [address] Monocytes/100 WBC (Bld) 8.5 % Normal 0-10 [facility] Comment on above: Performed By: #### L 100.0100, L500.2500 ####[facility] [address] [place], [address] Neutrophils/100 WBC (Bld) 62.0 % Normal 47-70 [facility] Comment on above: Performed By: #### L 100.0100, L500.2500 ####[facility] [address] [place], [address] Nucleated RBC (Bld) [#/Vol] 0 10*3/uL Normal 0-5 [facility] Comment on above: Performed By: #### L 100.0100, L500.2500 ####[facility] [address] [place], [address] Platelet mean volume (Bld) [Entitic vol] 8.8 fL Normal 6.2-12.0 [facility] Comment on above: Performed By: #### L 100.0100, L500.2500 ####[facility] [address] [place], [address] Platelets (Bld) [#/Vol] 423 10*3/uL Normal 150-450 [facility] Comment on above: Performed By: #### L 100.0100, L500.2500 ####[facility] [address] [place], [address] RBC (Bld) [#/Vol] 3.84 10*6/uL Low 4.2-5.4 [facility] Comment on above: Performed By: #### L 100.0100, L500.2500 ####[facility] [address] [place], [address] RDW SD 46.2 fl High 35.1-43.9 [facility] Comment on above: Performed By: #### L 100.0100, L500.2500 ####[facility] [address] [place], [address] WBC (Bld) [#/Vol] 8.5 10*3/uL Normal 4.4-11.0 [facility] Comment on above: Performed By: #### L 100.0100, L500.2500 ####[facility] [address] [place], [address] H AND P Exam - Hospitaliston 11-21-2024 H&P Exam - Hospitalist Normal [facility] Urinalysis, Completeon 11-21 BACTERIA 2+ /hpf Normal None Seen [facility] Comment on above: Order Comment: [facility] CTOR TO SPECIFY Performed By: #### M 100.678, L400.0001, M100.2200 ####[facility] [address] [place], [address] EPI,SQUAMOUS 0-5 SEEN Normal 5-10 [facility] Comment on above: Order Comment: [facility] CTOR TO SPECIFY Performed By: #### M 100.678, L400.0001, M100.2200 ####[facility] [address] [place], [address] WBC 10-25 SEEN Normal 0-5 [facility] Comment on above: Order Comment: [facility] CTOR TO SPECIFY Performed By: #### M 100.678, L400.0001, M100.2200 ####[facility] [address] [place], [address] YEAST 1+ /hpf Normal None Seen [facility] Comment on above: Order Comment: [facility] CTOR TO SPECIFY Performed By: #### M 100.678, L400.0001, M100.2200 ####[facility] [address] [place], [address] BILIRUBIN URINE Negative Normal Negative [facility] Comment on above: Order Comment: [facility] CTOR TO SPECIFY Performed By: #### M 100.678, L400.0001, M100.2200 ####[facility] [address] [place], [address] Clarity (U) Clear Normal Clear [facility] Comment on above: Order Comment: [facility] CTOR TO SPECIFY Performed By: #### M 100.678, L400.0001, M100.2200 ####[facility] [address] [place], [address] Color (U) Yellow Normal Yellow [facility] Comment on above: Order Comment: [facility] CTOR TO SPECIFY Performed By: #### M 100.678, L400.0001, M100.2200 ####[facility] [address] [place], [address] GLUCOSE, UR Normal Normal Normal [facility] Comment on above: Order Comment: [facility] CTOR TO SPECIFY Performed By: #### M 100.678, L400.0001, M100.2200 ####[facility] [address] [place], [address] KETONE UR Negative Normal Negative [facility] Comment on above: Order Comment: [facility] CTOR TO SPECIFY Performed By: #### M 100.678, L400.0001, M100.0 ####[facility] [address] [place], [address] LEUK ESTERASE 25 /ul Abnormal Negative [facility] Comment on above: Order Comment: [facility]O CTOR TO SPECIFY Performed By: #### M 100.678, L400.0001, M100.0 ####[facility] [address] [place], [address] Nitrite Ql (U) Negative Normal Negative [facility] Comment on above: Order Comment: LEO CTOR TO SPECIFY Performed By: #### M 100.678, L400.0001, M100.0 ####[facility] [address] [place], [address] OCCULT BLOOD-UR Negative Normal Negative [facility] Comment on above: Order Comment: [facility] CTOR TO SPECIFY Performed By: #### M 100.678, L400.0001, M1.0 ####[facility] [address] [place], [address] pH UR 5.0 Normal 5.0 - 8.0 [facility] Comment on above: Order Comment: LEO CTOR TO SPECIFY Performed By: #### M 100.678, L400.0001, M100.2200 ####[facility] [address] [place], [address] PROT DIPSTX 30 mg/dl Abnormal Negative [facility] Comment on above: Order Comment: LEO CTOR TO SPECIFY Performed By: #### M 100.678, L400.0001, M100.2200 ####[facility] [address] [place], [address] SP.GR. DIPSTX 1.015 Normal 1.002-1.030 [facility] Comment on above: Order Comment: [facility] CTOR TO SPECIFY Performed By: #### M 100.678, L400.0001, M100.2200 ####[facility] [address] [place], [address] UROBILI Normal Normal Normal [facility] Comment on above: Order Comment: [facility] CTOR TO SPECIFY Performed By: #### M 100.678, L400.0001, M100.2200 ####[facility] [address] [place], [address] Mucus Ql (Urine sed) 0 SEEN Normal [facility] Comment on above: Order Comment: [facility] CTOR TO SPECIFY Performed By: #### M 100.678, L400.0001, M100.2200 ####[facility] [address] [place], [address] RBC 0 SEEN Normal 0-5 [facility] Comment on above: Order Comment: [facility] CTOR TO SPECIFY Performed By: #### M 100.678, L400.0001, M100.2200 ####[facility] [address] [place], [address] 12 Lead EKGon 11-20-2024 12 Lead EKG Normal [facility] CBC W/Diff, Automatedon 05-2 PLT EST MKD INC Normal ADEQ [facility] Comment on above: Performed By: #### L 100.0100, L500.4050, L503.6005, L300.3900, L300.4310, M200.1000 ####[facility] [address] [place], [address] PATH REV May foll Normal [facility] Comment on above: Performed By: #### L 100.0100, L500.4050, L503.6005, L300.3900, L300.4310, M200.1000 ####[facility] [address] [place], [address] CTA Chst, Abd, Pel W and/or WOon 11-20-2024 CTA Chst, Abd, Pel W and/or WO Normal [facility] Comprehensive Metabolic Prof ilon 11-20-2024 Albumin [Mass/Vol] 4.7 g/dL Normal 3.5-5.0 [facility] Comment on above: Performed By: #### L 100.0100, L500.4050, L503.6005, L300.3900, L300.4310, M200.1000 ####[facility] [address] [place], [address] Albumin/Globulin [Mass ratio] 0.9 {ratio} Normal 0.9-2.4 [facility] Comment on above: Performed By: #### L 100.0100, L500.4050, L503.6005, L300.3900, L300.4310, M200.1000 ####[facility] [address] [place], [address] ALK PHOS 337 U/L High 35-104 [facility] Comment on above: Performed By: #### L 100.0100, L500.4050, L503.6005, L300.3900, L300.4310, M200.1000 ####[facility] [address] [place], [address] ALT [Catalytic activity/Vol] 127 U/L High <=34 [facility] Comment on above: Performed By: #### L 100.0100, L500.4050, L503.6005, L300.3900, L300.4310, M200.1000 ####[facility] [address] [place], [address] AST [Catalytic activity/Vol] 106 U/L High <=31 [facility] Comment on above: Performed By: #### L 100.0100, L500.4050, L503.6005, L300.3900, L300.4310, M200.1000 ####[facility] [address] [place], [address] Bilirubin [Mass/Vol] 0.82 mg/dL Normal 0.00-1.30 [facility] Comment on above: Performed By: #### L 100.0100, L500.4050, L503.6005, L300.3900, L300.4310, M200.1000 ####[facility] [address] [place], [address] BUN/CRE 8.4 RATIO Low 10-20 [facility] Comment on above: Performed By: #### L 100.0100, L500.4050, L503.6005, L300.3900, L300.4310, M200.1000 ####[facility] [address] [place], [address] Calcium [Mass/Vol] 10.8 mg/dL Normal 7.6-11.0 [facility] Comment on above: Performed By: #### L 100.0100, L500.4050, L503.6005, L300.3900, L300.4310, M200.1000 ####[facility] [address] [place], [address] Chloride [Moles/Vol] 88 mmol/L Low 98-108 [facility] Comment on above: Performed By: #### L 100.0100, L500.4050, L503.6005, L300.3900, L300.4310, M200.1000 ####[facility] [address] [place], [place], [address] CO2 [Moles/Vol] 15.2 mmol/L Low 21.0-32.0 [facility] Comment on above: Performed By: #### L 100.0100, L500.4050, L503.6005, L300.3900, L300.4310, M200.1000 ####[facility] [address] [place], [address] Creatinine [Mass/Vol] 4.32 mg/dL High 0.70-1.20 [facility] Comment on above: Performed By: #### L 100.0100, L500.4050, L503.6005, L300.3900, L300.4310, M200.1000 ####[facility] [address] [place], [place], [phone]) ECRCL 19.01 ml/min Low 50-250 [facility] Comment on above: Performed By: #### L 100.0100, L500.4050, L503.6005, L300.3900, L300.4310, M200.1000 ####[facility] [address] [place], [address] GAP 25 High 5-15 [facility] Comment on above: Performed By: #### L 100.0100, L500.4050, L503.6005, L300.3900, L300.4310, M200.1000 ####[facility] [address] [place], [place], [phone]) GFR/1.73 sq M.predicted among non-blacks MDRD (S/P/Bld) [Vol rate/Area] 13 mL/min/{1.73_m2} Low >60 [facility] Comment on above: Result Comment: mL/m in/1.73m2 CKD-EPI Creatinine Equation (2020) Performed By: #### L 100.0100, L500.4050, L503.6005, L300.3900, L300.4310, M200.1000 ####[facility] [address] [place], [address] Globulin (S) [Mass/Vol] 5.5 g/dL High 2.2-4.2 [facility] Comment on above: Performed By: #### L 100.0100, L500.4050, L503.6005, L300.3900, L300.4310, M200.1000 ####[facility] [address] [place], [address] Glucose [Mass/Vol] 249 mg/dL High 70-99 [facility] Comment on above: Performed By: #### L 100.0100, L500.4050, L503.6005, L300.3900, L300.4310, M200.1000 ####[facility] [address] [place], [address] Potassium [Moles/Vol] 4.4 mmol/L Normal 3.3-5.1 [facility] Comment on above: Performed By: #### L 100.0100, L500.4050, L503.6005, L300.3900, L300.4310, M200.1000 ####[facility] [address] [place], [address] Sodium [Moles/Vol] 129 mmol/L Low 133-145 [facility] Comment on above: Performed By: #### L 100.0100, L500.4050, L503.6005, L300.3900, L300.4310, M200.1000 ####[facility] [address] [place], [address] T PROT 10.1 g/dL High 5.9-8.4 [facility] Comment on above: Performed By: #### L 100.0100, L500.4050, L503.6005, L300.3900, L300.4310, M200.1000 ####[facility] [address] [place], [address] Urea nitrogen [Mass/Vol] 36 mg/dL High 4-19 [facility] Comment on above: Performed By: #### L 100.0100, L500.4050, L503.6005, L300.3900, L300.4310, M200.1000 ####[facility] [address] [place], [address] Emergency Department Summary on 11-20-2024 Emergency Department Summary Normal [facility] Foot min 3 Viewson 5 Foot min 3 Views Normal [facility] L499.0042on 11-20-2024 Trop T High Sen 32 ng/L High <=14 [facility] Comment on above: Performed By: #### L 499.0042 ####[facility] [address] [place], [address] L499.0043on 11-20-2024 Trop T High Sen 32 ng/L High <=14 [facility] Comment on above: Performed By: #### L 499.0043 ####[facility] [address] [place], [address] L501.4021on 11-20-2024 Trop T High Sen 38 ng/L High <=14 [facility] Comment on above: Performed By: #### L 501.4021 ####[facility] [address] [place], [address] Lactic Acidon 11-20-2024 Lactate [Moles/Vol] 1.7 mmol/L Normal 0.0-2.0 [facility] Comment on above: Performed By: #### L 503.6005 ####[facility] [address] [place], [address] Lactate [Moles/Vol] 6.1 mmol/L Invalid Interpretation Code 0.0-2.0 [facility] Comment on above: Order Comment: Y Result Comment: Crit ical Result(s) Called at: 1557 by: CLAUIDA GUTIERREZ TO HANNACM??Results read back by same. Performed By: #### L 100.0100, L500.4050, L503.6005, L300.3900, L300.4310, M200.1000 ####[facility] [address] [place], [address] M100.678on 11-20-2024 M100.678 Pending SARS-CoV-2 (COVID 19) Negative INFLUENZA A Negative INFLUENZA B Negative RSV PCR Negative Normal [facility] Comment on above: Performed By: #### M 100.678, L400.0001, M100.2200 ####[facility] [address] [place], [address] Partial Thromboplast Timeon 11-20-2024 aPTT Coag (Bld) [Time] 30.1 s Normal 24.1-36.2 [facility] Comment on above: Performed By: #### L 100.0100, L500.4050, L503.6005, L300.3900, L300.4310, M200.1000 ####[facility] [address] [place], [address] Prothrombin Time w/INRon INR Coag (PPP) [Relative time] 1.1 {INR} Normal [facility] Comment on above: Performed By: #### L 100.0100, L500.4050, L503.6005, L300.3900, L300.4310, M200.1000 ####[facility] [address] [place], [address] PT Coag (PPP) [Time] 14.8 s Normal 11.7-14.9 [facility] Comment on above: Performed By: #### L 100.0100, L500.4050, L503.6005, L300.3900, L300.4310, M200.1000 ####[facility] [address] [place], [address] Culture, Anaerobic Any Sourc patricia 11-19-2024 CUAN UNK UNK COLLECTED IN OR No anaerobic bacteria isolated. [facility] Comment on above: Performed By: #### M 100.3000, M100.4001, M100.2000 ####[facility] [address] [place], [address] Culture, Blood (WB)on 2024 CUB Blood cultures x2, f rom two different sites No growth in [address] [facility] Comment on above: Performed By: #### M 200.1000 ####[facility] [address] [place], [address] CUB Blood cultures x2, f rom two different sites No growth in [address] [facility] Comment on above: Performed By: #### L 300.3900, L300.4310, L503.6005, L500.4050, L501.4021, L503.7505, L100.0100, M200.1000 ####[facility] [address] [place], [address] Wound Cultureon 11-18-2024 [facility] Comment on above: Performed By: #### M 100.3000, M100.4001, M100.2000 ####[facility] [address] [place], [address] Discharge Instructionon 10-26 Discharge Instruction Normal [facility] Basic Metabolic Profile (BMP )on 11-15-2024 BUN/CRE 13.5 RATIO Normal 10-20 [facility] Comment on above: Performed By: #### L 100.0100, L500.2500, L300.3900, L300.4310 ####[facility] [address] [place], [address] Calcium [Mass/Vol] 8.3 mg/dL Normal 7.6-11.0 [facility] Comment on above: Performed By: #### L 100.0100, L500.2500, L300.3900, L300.4310 ####[facility] [address] [place], [address] Chloride [Moles/Vol] 105 mmol/L Normal 98-108 [facility] Comment on above: Performed By: #### L 100.0100, L500.2500, L300.3900, L300.4310 ####[facility] [address] [place], [address] CO2 [Moles/Vol] 19.0 mmol/L Low 21.0-32.0 [facility] Comment on above: Performed By: #### L 100.0100, L500.2500, L300.3900, L300.4310 ####[facility] [address] [place], [address] Creatinine [Mass/Vol] 1.38 mg/dL High 0.70-1.20 [facility] Comment on above: Performed By: #### L 100.0100, L500.2500, L300.3900, L300.4310 ####[facility] [address] [place], [address] ECRCL 60.44 ml/min Normal 50-250 [facility] Comment on above: Performed By: #### L 100.0100, L500.2500, L300.3900, L300.4310 ####[facility] [address] [place], [address] GAP 11 Normal 5-15 [facility] Comment on above: Performed By: #### L 100.0100, L500.2500, L300.3900, L300.4310 ####[facility] [address] [place], [address] GFR/1.73 sq M.predicted among non-blacks MDRD (S/P/Bld) [Vol rate/Area] 49 mL/min/{1.73_m2} Low >60 [facility] Comment on above: Result Comment: mL/m in/1.73m2 CKD-EPI Creatinine Equation (2020) Performed By: #### L 100.0100, L500.2500, L300.3900, L300.4310 ####[facility] [address] [place], [address] Glucose [Mass/Vol] 90 mg/dL Normal 70-99 [facility] Comment on above: Performed By: #### L 100.0100, L500.2500, L300.3900, L300.4310 ####[facility] [address] [place], [address] Potassium [Moles/Vol] 3.2 mmol/L Low 3.3-5.1 [facility] Comment on above: Performed By: #### L 100.0100, L500.2500, L300.3900, L300.4310 ####[facility] [address] [place], [address] Sodium [Moles/Vol] 135 mmol/L Normal 133-145 [facility] Comment on above: Performed By: #### L 100.0100, L500.2500, L300.3900, L300.4310 ####[facility] [address] [place], [address] Urea nitrogen [Mass/Vol] 19 mg/dL Normal 4-19 [facility] Comment on above: Performed By: #### L 100.0100, L500.2500, L300.3900, L300.4310 ####[facility] [address] [place], [address] CBC W/Diff, Automatedon 05-2 -2024 Absolute Lymph 2.01 X10 3/uL Normal 0.83-4.51 [facility] Comment on above: Performed By: #### L 100.0100, L500.2500, L300.3900, L300.4310 ####[facility] [address] [place], [address] Absolute Neut 3.1 X10 3/uL Normal 2.0-7.7 [facility] Comment on above: Performed By: #### L 100.0100, L500.2500, L300.3900, L300.4310 ####[facility] [address] [place], [address] Basophils/100 WBC (Bld) 1.0 % Normal 0-1 [facility] Comment on above: Performed By: #### L 100.0100, L500.2500, L300.3900, L300.4310 ####[facility] [address] [place], [address] Eosinophils/100 WBC (Bld) 1.9 % Normal 0-5 [facility] Comment on above: Performed By: #### L 100.0100, L500.2500, L300.3900, L300.4310 ####[facility] [address] [place], [address] Erythrocyte distribution width (RBC) [Ratio] 16.0 % High 11.6-14.6 [facility] Comment on above: Performed By: #### L 100.0100, L500.2500, L300.3900, L300.4310 ####[facility] [address] [place], [address] Hematocrit (Bld) [Volume fraction] 26.8 % Low 37-47 [facility] Comment on above: Performed By: #### L 100.0100, L500.2500, L300.3900, L300.4310 ####[facility] [address] [place], [address] Hemoglobin (Bld) [Mass/Vol] 8.6 g/dL Low 12.0-15.0 [facility] Comment on above: Performed By: #### L 100.0100, L500.2500, L300.3900, L300.4310 ####[facility] [address] [place], [address] IG% 0.300 Normal 0.0-0.9 [facility] Comment on above: Result Comment: IG% - Immature Granulocytes (promyelocytes, myelocytes andmetamyelocytes) > 1% indicates that a LEFT SHIFT is Present. Performed By: #### L 100.0100, L500.2500, L300.3900, L300.4310 ####[facility] [address] [place], [address] Lymphocytes/100 WBC (Bld) 34.9 % Normal 19-41 [facility] Comment on above: Performed By: #### L 100.0100, L500.2500, L300.3900, L300.4310 ####[facility] [address] [place], [address] MCH (RBC) [Entitic mass] 25.2 pg Low 27.0-32.0 [facility] Comment on above: Performed By: #### L 100.0100, L500.2500, L300.3900, L300.4310 ####[facility] [address] [place], [address] MCHC (RBC) [Mass/Vol] 32.1 g/dL Normal 32-36 [facility] Comment on above: Performed By: #### L 100.0100, L500.2500, L300.3900, L300.4310 ####[facility] [address] [place], [address] MCV (RBC) [Entitic vol] 78.6 fL Low 81-99 [facility] Comment on above: Performed By: #### L 100.0100, L500.2500, L300.3900, L300.4310 ####[facility] [address] [place], [address] Monocytes/100 WBC (Bld) 8.0 % Normal 0-10 [facility] Comment on above: Performed By: #### L 100.0100, L500.2500, L300.3900, L300.4310 ####[facility] [address] [place], [address] Neutrophils/100 WBC (Bld) 53.9 % Normal 47-70 [facility] Comment on above: Performed By: #### L 100.0100, L500.2500, L300.3900, L300.4310 ####[facility] [address] [place], [address] Nucleated RBC (Bld) [#/Vol] 0 10*3/uL Normal 0-5 [facility] Comment on above: Performed By: #### L 100.0100, L500.2500, L300.3900, L300.4310 ####[facility] [address] [place], [address] Platelet mean volume (Bld) [Entitic vol] 9.1 fL Normal 6.2-12.0 [facility] Comment on above: Performed By: #### L 100.0100, L500.2500, L300.3900, L300.4310 ####[facility] [address] [place], [address] Platelets (Bld) [#/Vol] 394 10*3/uL Normal 150-450 [facility] Comment on above: Performed By: #### L 100.0100, L500.2500, L300.3900, L300.4310 ####[facility] [address] [place], [address] RBC (Bld) [#/Vol] 3.41 10*6/uL Low 4.2-5.4 [facility] Comment on above: Performed By: #### L 100.0100, L500.2500, L300.3900, L300.4310 ####[facility] [address] [place], [address] RDW SD 45.2 fl High 35.1-43.9 [facility] Comment on above: Performed By: #### L 100.0100, L500.2500, L300.3900, L300.4310 ####[facility] [address] [place], [address] WBC (Bld) [#/Vol] 5.8 10*3/uL Normal 4.4-11.0 [facility] Comment on above: Performed By: #### L 100.0100, L500.2500, L300.3900, L300.4310 ####[facility] [address] [place], [address] Decalcification bone/plaqueo n 11-15-2024 Decalcification bone/plaque Normal [facility] Comment on above: Performed By: #### P DEC ####[facility] [address] [place], [address] Gram Stainon 11-15-2024 GS UNK UNK COLLECTED IN OR Gram Stain Rare Gram positive cocci Rare Gram positive rods Normal [facility] Comment on above: Performed By: #### M 100.3000, M100.4001, M100.2000 ####[facility] [address] [place], [address] MR/POSTOP.ANEon 11-15-2024 MR/POSTOP.ANE Normal [facility] MR/JJONBSSR0jw 11-15-2024 MR/POSTOPAN2 Normal [facility] Operative Reporton Operative Report Normal [facility] Partial Thromboplast Timeon 11-15-2024 aPTT Coag (Bld) [Time] 59.2 s High 24.1-36.2 [facility] Comment on above: Performed By: #### L 100.0100, L500.2500, L300.3900, L300.4310 ####[facility] [address] [place], [address] aPTT Coag (Bld) [Time] 82.6 s High 24.1-36.2 [facility] Comment on above: Performed By: #### L 300.4310 ####[facility] [address] [place], [address] ,Urineon 11-15-2024 Beta HCG ( test) Ql (U) Negative Normal [facility] Comment on above: Result Comment: Very dilute urine specimens, as indicated by a low specificgravity, may not contain human resources representative levels of hCG.If is still suspected, a first morning urinespecimen should be collected 48 hours later and tested. Performed By: #### L 400.7600 ####[facility] [address] [place], [address] Prothrombin Time w/INRon INR Coag (PPP) [Relative time] 1.1 {INR} Normal [facility] Comment on above: Performed By: #### L 100.0100, L500.2500, L300.3900, L300.4310 ####[facility] [address] [place], [address] PT Coag (PPP) [Time] 14.0 s Normal 11.7-14.9 [facility] Comment on above: Performed By: #### L 100.0100, L500.2500, L300.3900, L300.4310 ####[facility] [address] [place], [address] CBC W/Diff, Automatedon 05- Absolute Lymph 1.95 X10 3/uL Normal 0.83-4.51 [facility] Comment on above: Performed By: #### L 100.0100, L500.4050 ####[facility] [address] [place], [address] Absolute Neut 3.7 X10 3/uL Normal 2.0-7.7 [facility] Comment on above: Performed By: #### L 100.0100, L500.4050 ####[facility] [address] [place], [address] Basophils/100 WBC (Bld) 0.8 % Normal 0-1 [facility] Comment on above: Performed By: #### L 100.0100, L500.4050 ####[facility] [address] [place], [address] Eosinophils/100 WBC (Bld) 2.1 % Normal 0-5 [facility] Comment on above: Performed By: #### L 100.0100, L500.4050 ####[facility] [address] [place], [address] Erythrocyte distribution width (RBC) [Ratio] 15.8 % High 11.6-14.6 [facility] Comment on above: Performed By: #### L 100.0100, L500.4050 ####[facility] [address] [place], [address] Hematocrit (Bld) [Volume fraction] 28.9 % Low 37-47 [facility] Comment on above: Performed By: #### L 100.0100, L500.4050 ####[facility] [address] [place], [address] Hemoglobin (Bld) [Mass/Vol] 9.3 g/dL Low 12.0-15.0 [facility] Comment on above: Performed By: #### L 100.0100, L500.4050 ####[facility] [address] [place], [address] IG% 0.300 Normal 0.0-0.9 [facility] Comment on above: Result Comment: IG% - Immature Granulocytes (promyelocytes, myelocytes andmetamyelocytes) > 1% indicates that a LEFT SHIFT is Present. Performed By: #### L 100.0100, L500.4050 ####[facility] [address] [place], [address] Lymphocytes/100 WBC (Bld) 30.8 % Normal 19-41 [facility] Comment on above: Performed By: #### L 100.0100, L500.4050 ####[facility] [address] [place], [address] MCH (RBC) [Entitic mass] 24.7 pg Low 27.0-32.0 [facility] Comment on above: Performed By: #### L 100.0100, L500.4050 ####[facility] [address] [place], [address] MCHC (RBC) [Mass/Vol] 32.2 g/dL Normal 32-36 [facility] Comment on above: Performed By: #### L 100.0100, L500.4050 ####[facility] [address] [place], [address] MCV (RBC) [Entitic vol] 76.9 fL Low 81-99 [facility] Comment on above: Performed By: #### L 100.0100, L500.4050 ####[facility] [address] [place], [address] Monocytes/100 WBC (Bld) 7.4 % Normal 0-10 [facility] Comment on above: Performed By: #### L 100.0100, L500.4050 ####[facility] [address] [place], [address] Neutrophils/100 WBC (Bld) 58.6 % Normal 47-70 [facility] Comment on above: Performed By: #### L 100.0100, L500.4050 ####[facility] [address] [place], [address] Nucleated RBC (Bld) [#/Vol] 0 10*3/uL Normal 0-5 [facility] Comment on above: Performed By: #### L 100.0100, L500.4050 ####[facility] [address] [place], [address] Platelet mean volume (Bld) [Entitic vol] 8.9 fL Normal 6.2-12.0 [facility] Comment on above: Performed By: #### L 100.0100, L500.4050 ####[facility] [address] [place], [address] Platelets (Bld) [#/Vol] 393 10*3/uL Normal 150-450 [facility] Comment on above: Performed By: #### L 100.0100, L500.4050 ####[facility] [address] [place], [address] RBC (Bld) [#/Vol] 3.76 10*6/uL Low 4.2-5.4 [facility] Comment on above: Performed By: #### L 100.0100, L500.4050 ####[facility] [address] [place], [address] RDW SD 43.0 fl Normal 35.1-43.9 [facility] Comment on above: Performed By: #### L 100.0100, L500.4050 ####[facility] [address] [place], [address] WBC (Bld) [#/Vol] 6.3 10*3/uL Normal 4.4-11.0 [facility] Comment on above: Performed By: #### L 100.0100, L500.4050 ####[facility] [address] [place], [address] Comprehensive Metabolic Prof ilon 11-14-2024 Albumin [Mass/Vol] 3.4 g/dL Low 3.5-5.0 [facility] Comment on above: Performed By: #### L 100.0100, L500.4050 ####[facility] [address] [place], [address] Albumin/Globulin [Mass ratio] 1.0 {ratio} Normal 0.9-2.4 [facility] Comment on above: Performed By: #### L 100.0100, L500.4050 ####[facility] [address] [place], [address] ALK PHOS 273 U/L High 35-104 [facility] Comment on above: Performed By: #### L 100.0100, L500.4050 ####[facility] [address] [place], [address] ALT [Catalytic activity/Vol] 205 U/L High <=34 [facility] Comment on above: Performed By: #### L 100.0100, L500.4050 ####[facility] [address] [place], [address] AST [Catalytic activity/Vol] 102 U/L High <=31 [facility] Comment on above: Performed By: #### L 100.0100, L500.4050 ####[facility] [address] [place], [address] Bilirubin [Mass/Vol] 1.20 mg/dL Normal 0.00-1.30 [facility] Comment on above: Performed By: #### L 100.0100, L500.4050 ####[facility] [address] [place], [address] BUN/CRE 18.6 RATIO Normal 10-20 [facility] Comment on above: Performed By: #### L 100.0100, L500.4050 ####[facility] [address] [place], [address] Calcium [Mass/Vol] 8.8 mg/dL Normal 7.6-11.0 [facility] Comment on above: Performed By: #### L 100.0100, L500.4050 ####[facility] [address] [place], [address] Chloride [Moles/Vol] 100 mmol/L Normal 98-108 [facility] Comment on above: Performed By: #### L 100.0100, L500.4050 ####[facility] [address] [place], [address] CO2 [Moles/Vol] 17.5 mmol/L Low 21.0-32.0 [facility] Comment on above: Performed By: #### L 100.0100, L500.4050 ####[facility] [address] [place], [address] Creatinine [Mass/Vol] 2.17 mg/dL High 0.70-1.20 [facility] Comment on above: Performed By: #### L 100.0100, L500.4050 ####[facility] [address] [place], [address] ECRCL 38.54 ml/min Low 50-250 [facility] Comment on above: Performed By: #### L 100.0100, L500.4050 ####[facility] [address] [place], [address] GAP 14 Normal 5-15 [facility] Comment on above: Performed By: #### L 100.0100, L500.4050 ####[facility] [address] [place], [address] GFR/1.73 sq M.predicted among non-blacks MDRD (S/P/Bld) [Vol rate/Area] 29 mL/min/{1.73_m2} Low >60 [facility] Comment on above: Result Comment: mL/m in/1.73m2 CKD-EPI Creatinine Equation (2020) Performed By: #### L 100.0100, L500.4050 ####[facility] [address] [place], [address] Globulin (S) [Mass/Vol] 3.6 g/dL Normal 2.2-4.2 [facility] Comment on above: Performed By: #### L 100.0100, L500.4050 ####[facility] [address] [place], [address] Glucose [Mass/Vol] 146 mg/dL High 70-99 [facility] Comment on above: Performed By: #### L 100.0100, L500.4050 ####[facility] [address] [place], [address] Potassium [Moles/Vol] 3.4 mmol/L Normal 3.3-5.1 [facility] Comment on above: Performed By: #### L 100.0100, L500.4050 ####[facility] [address] [place], [address] Sodium [Moles/Vol] 131 mmol/L Low 133-145 [facility] Comment on above: Performed By: #### L 100.0100, L500.4050 ####[facility] [address] [place], [address] T PROT 7.0 g/dL Normal 5.9-8.4 [facility] Comment on above: Performed By: #### L 100.0100, L500.4050 ####[facility] [address] [place], [address] Urea nitrogen [Mass/Vol] 40 mg/dL High 4-19 [facility] Comment on above: Performed By: #### L 100.0100, L500.4050 ####[facility] [address] [place], [address] Consultation - Surgicalon Consultation - Surgical Normal [facility] Lower Ext Art Exam w/o Exerc marly 11-14-2024 Lower Ext Art Exam w/o Exercis Normal [facility] Partial Thromboplast Timeon 11-14-2024 aPTT Coag (Bld) [Time] 30.6 s Normal 24.1-36.2 [facility] Comment on above: Performed By: #### L 300.4310 ####[facility] [address] [place], [address] aPTT Coag (Bld) [Time] 55.3 s High 24.1-36.2 [facility] Comment on above: Performed By: #### L 300.4310 ####[facility] [address] [place], [address] aPTT Coag (Bld) [Time] 56.1 s High 24.1-36.2 [facility] Comment on above: Performed By: #### L 300.4310 ####[facility] [address] [place], [address] Urine Cultureon 11-14-2024 URC Culture exhibits no growth. Normal [facility] Comment on above: Performed By: #### L 400.0001, M100.678, M100.2200 ####[facility] [address] [place], [address] 12 Lead EKGon 11-13-2024 12 Lead EKG Normal [facility] CRPon 11-13-2024 C-REACTIVE PROT 10.90 mg/L High 0.0-3.0 [facility] Comment on above: Performed By: #### L 501.6710, L101.9900 ####[facility] [address] [place], [address] Chest PA and Lateralon 11-13 Chest PA and Lateral Normal [facility] Comprehensive Metabolic Prof ilon 11-13-2024 Albumin [Mass/Vol] 4.8 g/dL Normal 3.5-5.0 [facility] Comment on above: Performed By: #### L 300.3900, L300.4310, L503.6005, L500.4050, L501.4021, L503.7505, L100.0100, M200.1000 ####[facility] [address] [place], [address] Albumin/Globulin [Mass ratio] 0.9 {ratio} Normal 0.9-2.4 [facility] Comment on above: Performed By: #### L 300.3900, L300.4310, L503.6005, L500.4050, L501.4021, L503.7505, L100.0100, M200.1000 ####[facility] [address] [place], [address] ALK PHOS 459 U/L High 35-104 [facility] Comment on above: Performed By: #### L 300.3900, L300.4310, L503.6005, L500.4050, L501.4021, L503.7505, L100.0100, M200.1000 ####[facility] [address] [place], [address] ALT [Catalytic activity/Vol] 336 U/L High <=34 [facility] Comment on above: Performed By: #### L 300.3900, L300.4310, L503.6005, L500.4050, L501.4021, L503.7505, L100.0100, M200.1000 ####[facility] [address] [place], [address] AST [Catalytic activity/Vol] 197 U/L High <=31 [facility] Comment on above: Performed By: #### L 300.3900, L300.4310, L503.6005, L500.4050, L501.4021, L503.7505, L100.0100, M200.1000 ####[facility] [address] [place], [address] Bilirubin [Mass/Vol] 1.93 mg/dL High 0.00-1.30 [facility] Comment on above: Performed By: #### L 300.3900, L300.4310, L503.6005, L500.4050, L501.4021, L503.7505, L100.0100, M200.1000 ####[facility] [address] [place], [address] BUN/CRE 17.9 RATIO Normal 10-20 [facility] Comment on above: Performed By: #### L 300.3900, L300.4310, L503.6005, L500.4050, L501.4021, L503.7505, L100.0100, M200.1000 ####[facility] [address] [place], [address] Calcium [Mass/Vol] 11.0 mg/dL Normal 7.6-11.0 [facility] Comment on above: Performed By: #### L 300.3900, L300.4310, L503.6005, L500.4050, L501.4021, L503.7505, L100.0100, M200.1000 ####[facility] [address] [place], [address] Chloride [Moles/Vol] 86 mmol/L Low 98-108 [facility] Comment on above: Performed By: #### L 300.3900, L300.4310, L503.6005, L500.4050, L501.4021, L503.7505, L100.0100, M200.1000 ####[facility] [address] [place], [address] CO2 [Moles/Vol] 17.0 mmol/L Low 21.0-32.0 [facility] Comment on above: Performed By: #### L 300.3900, L300.4310, L503.6005, L500.4050, L501.4021, L503.7505, L100.0100, M200.1000 ####[facility] [address] [place], [address] Creatinine [Mass/Vol] 3.70 mg/dL High 0.70-1.20 [facility] Comment on above: Performed By: #### L 300.3900, L300.4310, L503.6005, L500.4050, L501.4021, L503.7505, L100.0100, M200.1000 ####[facility] [address] [place], [address] ECRCL 22.19 ml/min Low 50-250 [facility] Comment on above: Performed By: #### L 300.3900, L300.4310, L503.6005, L500.4050, L501.4021, L503.7505, L100.0100, M200.1000 ####[facility] [address] [place], [address] GAP 23 High 5-15 [facility] Comment on above: Performed By: #### L 300.3900, L300.4310, L503.6005, L500.4050, L501.4021, L503.7505, L100.0100, M200.1000 ####[facility] [address] [place], [address] GFR/1.73 sq M.predicted among non-blacks MDRD (S/P/Bld) [Vol rate/Area] 15 mL/min/{1.73_m2} Low >60 [facility] Comment on above: Result Comment: mL/m in/1.73m2 CKD-EPI Creatinine Equation (2020) Performed By: #### L 300.3900, L300.4310, L503.6005, L500.4050, L501.4021, L503.7505, L100.0100, M200.1000 ####[facility] [address] [place], [address] Globulin (S) [Mass/Vol] 5.5 g/dL High 2.2-4.2 [facility] Comment on above: Performed By: #### L 300.3900, L300.4310, L503.6005, L500.4050, L501.4021, L503.7505, L100.0100, M200.1000 ####[facility] [address] [place], [address] Glucose [Mass/Vol] 168 mg/dL High 70-99 [facility] Comment on above: Performed By: #### L 300.3900, L300.4310, L503.6005, L500.4050, L501.4021, L503.7505, L100.0100, M200.1000 ####[facility] [address] [place], [address] Potassium [Moles/Vol] 4.1 mmol/L Normal 3.3-5.1 [facility] Comment on above: Performed By: #### L 300.3900, L300.4310, L503.6005, L500.4050, L501.4021, L503.7505, L100.0100, M200.1000 ####[facility] [address] [place], [address] Sodium [Moles/Vol] 126 mmol/L Low 133-145 [facility] Comment on above: Performed By: #### L 300.3900, L300.4310, L503.6005, L500.4050, L501.4021, L503.7505, L100.0100, M200.1000 ####[facility] [address] [place], [address] T PROT 10.3 g/dL High 5.9-8.4 [facility] Comment on above: Performed By: #### L 300.3900, L300.4310, L503.6005, L500.4050, L501.4021, L503.7505, L100.0100, M200.1000 ####[facility] [address] [place], [address] Urea nitrogen [Mass/Vol] 66 mg/dL High 4-19 [facility] Comment on above: Performed By: #### L 300.3900, L300.4310, L503.6005, L500.4050, L501.4021, L503.7505, L100.0100, M200.1000 ####[facility] [address] [place], [address] Emergency Department Summary on 11-13-2024 Emergency Department Summary Normal [facility] Erythrocyte Sed Rateon 11-13 SED RATE 87 mm/hr High 0-30 [facility] Comment on above: Performed By: #### L 501.6710, L101.9900 ####[facility] [address] [place], [address] Foot min 3 Viewson 5 Foot min 3 Views Normal [facility] H AND P Exam - Hospitaliston 11-13-2024 H&P Exam - Hospitalist Normal [facility] L501.4021on 11-13-2024 Trop T High Sen 20 ng/L High <=14 [facility] Comment on above: Performed By: #### L 501.4021 ####[facility] [address] [place], [address] Trop T High Sen 30 ng/L High <=14 [facility] Comment on above: Performed By: #### L 300.3900, L300.4310, L503.6005, L500.4050, L501.4021, L503.7505, L100.0100, M200.1000 ####[facility] [address] [place], [address] L503.7505on 11-13-2024 Natriuretic peptide B (Bld) [Mass/Vol] 46 pg/mL Normal <=450 [facility] Comment on above: Result Comment: Hear t Failure Unlikely: < 300 pg/mLHeart Failure Likely< 50 Years: > 450 pg/mL50-75 Years: > 900 pg/mL>75 Years: > 1800 pg/mL Performed By: #### L 300.3900, L300.4310, L503.6005, L500.4050, L501.4021, L503.7505, L100.0100, M200.1000 ####[facility] [address] [place], [address] Lactic Acidon 11-13-2024 Lactate [Moles/Vol] 1.6 mmol/L Normal 0.0-2.0 [facility] Comment on above: Performed By: #### L 503.6005 ####[facility] [address] [place], [address] Lactate [Moles/Vol] 5.8 mmol/L Invalid Interpretation Code 0.0-2.0 [facility] Comment on above: Order Comment: Y Result Comment: Crit ical Result(s) Called at 1343: by: ROSSANA CARLSON. ??Results read back by same. Performed By: #### L 300.3900, L300.4310, L503.6005, L500.4050, L501.4021, L503.7505, L100.0100, M200.1000 ####[facility] [address] [place], [address] M100.678on 11-13-2024 M100.678 Pending SARS-CoV-2 (COVID 19) Negative INFLUENZA A Negative INFLUENZA B Negative RSV PCR Negative Normal [facility] Comment on above: Performed By: #### L 400.0001, M100.678, M100.2200 ####[facility] [address] [place], [address] Partial Thromboplast Timeon 11-13-2024 aPTT Coag (Bld) [Time] 73.1 s High 24.1-36.2 [facility] Comment on above: Performed By: #### L 300.4310 ####[facility] [address] [place], [address] aPTT Coag (Bld) [Time] 29.6 s Normal 24.1-36.2 [facility] Comment on above: Performed By: #### L 300.3900, L300.4310, L503.6005, L500.4050, L501.4021, L503.7505, L100.0100, M200.1000 ####[facility] [address] [place], [address] Prothrombin Time w/INRon INR Coag (PPP) [Relative time] 1.1 {INR} Normal [facility] Comment on above: Performed By: #### L 300.3900, L300.4310, L503.6005, L500.4050, L501.4021, L503.7505, L100.0100, M200.1000 ####[facility] [address] [place], [address] PT Coag (PPP) [Time] 13.9 s Normal 11.7-14.9 [facility] Comment on above: Performed By: #### L 300.3900, L300.4310, L503.6005, L500.4050, L501.4021, L503.7505, L100.0100, M200.1000 ####[facility] [address] [place], [address] Urinalysis, Completeon 11-13 CAST,HYALINE 10-25 SEEN Normal 0-5 [facility] Comment on above: Order Comment: [facility] CTOR TO SPECIFY Performed By: #### L 400.0001, M100.678, M100.2200 ####[facility] [address] [place], [address] EPI,SQUAMOUS 0-5 SEEN Normal 5-10 [facility] Comment on above: Order Comment: [facility] CTOR TO SPECIFY Performed By: #### L 400.0001, M100.678, M100.2200 ####[facility] [address] [place], [address] WBC 0-5 SEEN Normal 0-5 [facility] Comment on above: Order Comment: [facility] CTOR TO SPECIFY Performed By: #### L 400.0001, M100.678, M100.2200 ####[facility] [address] [place], [address] BACTERIA 0 SEEN Normal None Seen [facility] Comment on above: Order Comment: [facility] CTOR TO SPECIFY Performed By: #### L 400.0001, M100.678, M100.2200 ####[facility] [address] [place], [address] Mucus Ql (Urine sed) 0 SEEN Normal [facility] Comment on above: Order Comment: [facility] CTOR TO SPECIFY Performed By: #### L 400.0001, M100.678, M100.2200 ####[facility] [address] [place], [address] RBC 0 SEEN Normal 0-5 [facility] Comment on above: Order Comment: [facility] CTOR TO SPECIFY Performed By: #### L 400.0001, M100.678, M100.2200 ####[facility] [address] [place], [address] Basic Metabolic Profile (BMP )on 11-05-2024 BUN/CRE 4.7 RATIO Low 10-20 [facility] Comment on above: Performed By: #### L 500.2500 ####[facility] [address] [place], [address] Calcium [Mass/Vol] 8.6 mg/dL Normal 7.6-11.0 [facility] Comment on above: Performed By: #### L 500.2500 ####[facility] [address] [place], [address] Chloride [Moles/Vol] 110 mmol/L High 98-108 [facility] Comment on above: Performed By: #### L 500.2500 ####[facility] [address] [place], [address] CO2 [Moles/Vol] 19.7 mmol/L Low 21.0-32.0 [facility] Comment on above: Performed By: #### L 500.2500 ####[facility] [address] [place], [address] Creatinine [Mass/Vol] 0.94 mg/dL Normal 0.70-1.20 [facility] Comment on above: Performed By: #### L 500.2500 ####[facility] [address] [place], [address] ECRCL 89.97 ml/min Normal 50-250 [facility] Comment on above: Performed By: #### L 500.2500 ####[facility] [address] [place], [address] GAP 10 Normal 5-15 [facility] Comment on above: Performed By: #### L 500.2500 ####[facility] [address] [place], [address] GFR/1.73 sq M.predicted among non-blacks MDRD (S/P/Bld) [Vol rate/Area] 78 mL/min/{1.73_m2} Normal >60 [facility] Comment on above: Result Comment: mL/m in/1.73m2 CKD-EPI Creatinine Equation (2020) Performed By: #### L 500.2500 ####[facility] [address] [place], [address] Glucose [Mass/Vol] 85 mg/dL Normal 70-99 [facility] Comment on above: Performed By: #### L 500.2500 ####[facility] [address] [place], [address] Potassium [Moles/Vol] 3.7 mmol/L Normal 3.3-5.1 [facility] Comment on above: Performed By: #### L 500.2500 ####[facility] [address] [place], [address] Sodium [Moles/Vol] 139 mmol/L Normal 133-145 [facility] Comment on above: Performed By: #### L 500.2500 ####[facility] [address] [place], [address] Urea nitrogen [Mass/Vol] 4 mg/dL Normal 4-19 [facility] Comment on above: Performed By: #### L 500.2500 ####[facility] [address] [place], [address] Basic Metabolic Profile (BMP )on 11-04-2024 BUN/CRE 3.6 RATIO Low 10-20 [facility] Comment on above: Performed By: #### L 500.2500 ####[facility] [address] [place], [address] Calcium [Mass/Vol] 7.8 mg/dL Normal 7.6-11.0 [facility] Comment on above: Performed By: #### L 500.2500 ####[facility] [address] [place], [address] Chloride [Moles/Vol] 113 mmol/L High 98-108 [facility] Comment on above: Performed By: #### L 500.2500 ####[facility] [address] [place], [address] CO2 [Moles/Vol] 17.3 mmol/L Low 21.0-32.0 [facility] Comment on above: Performed By: #### L 500.2500 ####[facility] [address] [place], [address] Creatinine [Mass/Vol] 0.93 mg/dL Normal 0.70-1.20 [facility] Comment on above: Performed By: #### L 500.2500 ####[facility] [address] [place], [address] ECRCL 90.94 ml/min Normal 50-250 [facility] Comment on above: Performed By: #### L 500.2500 ####[facility] [address] [place], [address] GAP 9 Normal 5-15 [facility] Comment on above: Performed By: #### L 500.2500 ####[facility] [address] [place], [address] GFR/1.73 sq M.predicted among non-blacks MDRD (S/P/Bld) [Vol rate/Area] 79 mL/min/{1.73_m2} Normal >60 [facility] Comment on above: Result Comment: mL/m in/1.73m2 CKD-EPI Creatinine Equation (2020) Performed By: #### L 500.2500 ####[facility] [address] [place], [address] Glucose [Mass/Vol] 96 mg/dL Normal 70-99 [facility] Comment on above: Performed By: #### L 500.2500 ####[facility] [address] [place], [address] Potassium [Moles/Vol] 3.9 mmol/L Normal 3.3-5.1 [facility] Comment on above: Performed By: #### L 500.2500 ####[facility] [address] [place], [address] Sodium [Moles/Vol] 140 mmol/L Normal 133-145 [facility] Comment on above: Performed By: #### L 500.2500 ####[facility] [address] [place], [address] Urea nitrogen [Mass/Vol] 3 mg/dL Low - [facility] Comment on above: Performed By: #### L 500.2500 ####[facility] [address] [place], [address] Basic Metabolic Profile (BMP )on 11-03-2024 BUN/CRE 4.1 RATIO Low 10- [facility] Comment on above: Performed By: #### L 500.2500, L501.5200 ####[facility] [address] [place], [address] Calcium [Mass/Vol] 8.3 mg/dL Normal 7.6-11.0 [facility] Comment on above: Performed By: #### L 500.2500, L501.5200 ####[facility] [address] [place], [address] Chloride [Moles/Vol] 110 mmol/L High 98-108 [facility] Comment on above: Performed By: #### L 500.2500, L501.5200 ####[facility] [address] [place], [address] CO2 [Moles/Vol] 20.6 mmol/L Low 21.0-32.0 [facility] Comment on above: Performed By: #### L 500.2500, L501.5200 ####[facility] [address] [place], [address] Creatinine [Mass/Vol] 0.99 mg/dL Normal 0.70-1.20 [facility] Comment on above: Performed By: #### L 500.2500, L501.5200 ####[facility] [address] [place], [address] ECRCL 85.43 ml/min Normal 50-250 [facility] Comment on above: Performed By: #### L 500.2500, L501.5200 ####[facility] [address] [place], [address] GAP 9 Normal 5-15 [facility] Comment on above: Performed By: #### L 500.2500, L501.5200 ####[facility] [address] [place], [address] GFR/1.73 sq M.predicted among non-blacks MDRD (S/P/Bld) [Vol rate/Area] 74 mL/min/{1.73_m2} Normal >60 [facility] Comment on above: Result Comment: mL/m in/1.73m2 CKD-EPI Creatinine Equation (2020) Performed By: #### L 500.2500, L501.5200 ####[facility] [address] [place], [address] Glucose [Mass/Vol] 100 mg/dL High 70-99 [facility] Comment on above: Performed By: #### L 500.2500, L501.5200 ####[facility] [address] [place], [address] Potassium [Moles/Vol] 3.8 mmol/L Normal 3.3-5.1 [facility] Comment on above: Performed By: #### L 500.2500, L501.5200 ####[facility] [address] [place], [address] Sodium [Moles/Vol] 140 mmol/L Normal 133-145 [facility] Comment on above: Performed By: #### L 500.2500, L501.5200 ####[facility] [address] [place], [address] Urea nitrogen [Mass/Vol] 4 mg/dL Normal 4-19 [facility] Comment on above: Performed By: #### L 500.2500, L501.5200 ####[facility] [address] [place], [address] Magnesiumon 11-03-2024 Magnesium [Mass/Vol] 1.3 mg/dL Low 1.5-2.2 [facility] Comment on above: Performed By: #### L 500.2500, L501.5200 ####[facility] [address] [place], [address] Basic Metabolic Profile (BMP )on 11-02-2024 BUN/CRE 7.2 RATIO Low 10-20 [facility] Comment on above: Performed By: #### L 500.2500 ####[facility] [address] [place], [address] Calcium [Mass/Vol] 8.2 mg/dL Normal 7.6-11.0 [facility] Comment on above: Performed By: #### L 500.2500 ####[facility] [address] [place], [address] Chloride [Moles/Vol] 106 mmol/L Normal 98-108 [facility] Comment on above: Performed By: #### L 500.2500 ####[facility] [address] [place], [address] CO2 [Moles/Vol] 22.3 mmol/L Normal 21.0-32.0 [facility] Comment on above: Performed By: #### L 500.2500 ####[facility] [address] [place], [address] Creatinine [Mass/Vol] 0.96 mg/dL Normal 0.70-1.20 [facility] Comment on above: Performed By: #### L 500.2500 ####[facility] [address] [place], [address] ECRCL 88.09 ml/min Normal 50-250 [facility] Comment on above: Performed By: #### L 500.2500 ####[facility] [address] [place], [address] GAP 11 Normal 5-15 [facility] Comment on above: Performed By: #### L 500.2500 ####[facility] [address] [place], [address] GFR/1.73 sq M.predicted among non-blacks MDRD (S/P/Bld) [Vol rate/Area] 76 mL/min/{1.73_m2} Normal >60 [facility] Comment on above: Result Comment: mL/m in/1.73m2 CKD-EPI Creatinine Equation (2020) Performed By: #### L 500.2500 ####[facility] [address] [place], [address] Glucose [Mass/Vol] 79 mg/dL Normal 70-99 [facility] Comment on above: Performed By: #### L 500.2500 ####[facility] [address] [place], [address] Potassium [Moles/Vol] 3.0 mmol/L Low 3.3-5.1 [facility] Comment on above: Performed By: #### L 500.2500 ####[facility] [address] [place], [address] Sodium [Moles/Vol] 139 mmol/L Normal 133-145 [facility] Comment on above: Performed By: #### L 500.2500 ####[facility] [address] [place], [address] Urea nitrogen [Mass/Vol] 7 mg/dL Normal 4-19 [facility] Comment on above: Performed By: #### L 500.2500 ####[facility] [address] [place], [address] Basic Metabolic Profile (BMP )on 11-01-2024 BUN/CRE 8.6 RATIO Low 10-20 [facility] Comment on above: Performed By: #### L 500.2500 ####[facility] [address] [place], [address] Calcium [Mass/Vol] 8.5 mg/dL Normal 7.6-11.0 [facility] Comment on above: Performed By: #### L 500.2500 ####[facility] [address] [place], [address] Chloride [Moles/Vol] 102 mmol/L Normal 98-108 [facility] Comment on above: Performed By: #### L 500.2500 ####[facility] [address] [place], [address] CO2 [Moles/Vol] 24.0 mmol/L Normal 21.0-32.0 [facility] Comment on above: Performed By: #### L 500.2500 ####[facility] [address] [place], [address] Creatinine [Mass/Vol] 1.01 mg/dL Normal 0.70-1.20 [facility] Comment on above: Performed By: #### L 500.2500 ####[facility] [address] [place], [address] ECRCL 83.73 ml/min Normal 50-250 [facility] Comment on above: Performed By: #### L 500.2500 ####[facility] [address] [place], [address] GAP 10 Normal 5-15 [facility] Comment on above: Performed By: #### L 500.2500 ####[facility] [address] [place], [address] GFR/1.73 sq M.predicted among non-blacks MDRD (S/P/Bld) [Vol rate/Area] 72 mL/min/{1.73_m2} Normal >60 [facility] Comment on above: Result Comment: mL/m in/1.73m2 CKD-EPI Creatinine Equation (2020) Performed By: #### L 500.2500 ####[facility] [address] [place], [address] Glucose [Mass/Vol] 90 mg/dL Normal 70-99 [facility] Comment on above: Performed By: #### L 500.2500 ####[facility] [address] [place], [address] Potassium [Moles/Vol] 3.2 mmol/L Low 3.3-5.1 [facility] Comment on above: Performed By: #### L 500.2500 ####[facility] [address] [place], [address] Sodium [Moles/Vol] 136 mmol/L Normal 133-145 [facility] Comment on above: Performed By: #### L 500.2500 ####[facility] [address] [place], [address] Urea nitrogen [Mass/Vol] 9 mg/dL Normal 4-19 [facility] Comment on above: Performed By: #### L 500.2500 ####[facility] [address] [place], [address] Basic Metabolic Profile (BMP )on 10-31-2024 BUN/CRE 10.7 RATIO Normal 10-20 [facility] Comment on above: Performed By: #### L 100.0500, L500.2500 ####[facility] [address] [place], [address] Calcium [Mass/Vol] 8.6 mg/dL Normal 7.6-11.0 [facility] Comment on above: Performed By: #### L 100.0500, L500.2500 ####[facility] [address] [place], [address] Chloride [Moles/Vol] 100 mmol/L Normal 98-108 [facility] Comment on above: Performed By: #### L 100.0500, L500.2500 ####[facility] [address] [place], [address] CO2 [Moles/Vol] 21.6 mmol/L Normal 21.0-32.0 [facility] Comment on above: Performed By: #### L 100.0500, L500.2500 ####[facility] [address] [place], [address] Creatinine [Mass/Vol] 1.04 mg/dL Normal 0.70-1.20 [facility] Comment on above: Performed By: #### L 100.0500, L500.2500 ####[facility] [address] [place], [address] ECRCL 81.32 ml/min Normal 50-250 [facility] Comment on above: Performed By: #### L 100.0500, L500.2500 ####[facility] [address] [place], [address] GAP 13 Normal 5-15 [facility] Comment on above: Performed By: #### L 100.0500, L500.2500 ####[facility] [address] [place], [address] GFR/1.73 sq M.predicted among non-blacks MDRD (S/P/Bld) [Vol rate/Area] 69 mL/min/{1.73_m2} Normal >60 [facility] Comment on above: Result Comment: mL/m in/1.73m2 CKD-EPI Creatinine Equation (2020) Performed By: #### L 100.0500, L500.2500 ####[facility] [address] [place], [address] Glucose [Mass/Vol] 91 mg/dL Normal 70-99 [facility] Comment on above: Performed By: #### L 100.0500, L500.2500 ####[facility] [address] [place], [address] Potassium [Moles/Vol] 3.2 mmol/L Low 3.3-5.1 [facility] Comment on above: Performed By: #### L 100.0500, L500.2500 ####[facility] [address] [place], [address] Sodium [Moles/Vol] 135 mmol/L Normal 133-145 [facility] Comment on above: Performed By: #### L 100.0500, L500.2500 ####[facility] [address] [place], [address] Urea nitrogen [Mass/Vol] 11 mg/dL Normal 4-19 [facility] Comment on above: Performed By: #### L 100.0500, L500.2500 ####[facility] [address] [place], [address] CBC-Complete Blood Cnt No Di ffon 10-31-2024 Erythrocyte distribution width (RBC) [Ratio] 15.1 % High 11.6-14.6 [facility] Comment on above: Performed By: #### L 100.0500, L500.2500 ####[facility] [address] [place], [address] Hematocrit (Bld) [Volume fraction] 28.9 % Low 37-47 [facility] Comment on above: Performed By: #### L 100.0500, L500.2500 ####[facility] [address] [place], [address] Hemoglobin (Bld) [Mass/Vol] 8.9 g/dL Low 12.0-15.0 [facility] Comment on above: Performed By: #### L 100.0500, L500.2500 ####[facility] [address] [place], [address] MCH (RBC) [Entitic mass] 24.4 pg Low 27.0-32.0 [facility] Comment on above: Performed By: #### L 100.0500, L500.2500 ####[facility] [address] [place], [address] MCHC (RBC) [Mass/Vol] 30.8 g/dL Low 32-36 [facility] Comment on above: Performed By: #### L 100.0500, L500.2500 ####[facility] [address] [place], [address] MCV (RBC) [Entitic vol] 79.2 fL Low 81-99 [facility] Comment on above: Performed By: #### L 100.0500, L500.2500 ####[facility] [address] [place], [address] Platelet mean volume (Bld) [Entitic vol] 9.0 fL Normal 6.2-12.0 [facility] Comment on above: Performed By: #### L 100.0500, L500.2500 ####[facility] [address] [place], [address] Platelets (Bld) [#/Vol] 357 10*3/uL Normal 150-450 [facility] Comment on above: Performed By: #### L 100.0500, L500.2500 ####[facility] [address] [place], [address] RBC (Bld) [#/Vol] 3.65 10*6/uL Low 4.2-5.4 [facility] Comment on above: Performed By: #### L 100.0500, L500.2500 ####[facility] [address] [place], [address] RDW SD 43.3 fl Normal 35.1-43.9 [facility] Comment on above: Performed By: #### L 100.0500, L500.2500 ####[facility] [address] [place], [address] WBC (Bld) [#/Vol] 4.9 10*3/uL Normal 4.4-11.0 [facility] Comment on above: Performed By: #### L 100.0500, L500.2500 ####[facility] [address] [place], [address] Basic Metabolic Profile (BMP )on 10-30-2024 BUN/CRE 14.8 RATIO Normal 10-20 [facility] Comment on above: Performed By: #### L 100.0100, L500.2500 ####[facility] [address] [place], [address] Calcium [Mass/Vol] 8.6 mg/dL Normal 7.6-11.0 [facility] Comment on above: Performed By: #### L 100.0100, L500.2500 ####[facility] [address] [place], [address] Chloride [Moles/Vol] 100 mmol/L Normal 98-108 [facility] Comment on above: Performed By: #### L 100.0100, L500.2500 ####[facility] [address] [place], [address] CO2 [Moles/Vol] 22.0 mmol/L Normal 21.0-32.0 [facility] Comment on above: Performed By: #### L 100.0100, L500.2500 ####[facility] [address] [place], [address] Creatinine [Mass/Vol] 1.26 mg/dL High 0.70-1.20 [facility] Comment on above: Performed By: #### L 100.0100, L500.2500 ####[facility] [address] [place], [address] ECRCL 67.12 ml/min Normal 50-250 [facility] Comment on above: Performed By: #### L 100.0100, L500.2500 ####[facility] [address] [place], [address] GAP 14 Normal 5-15 [facility] Comment on above: Performed By: #### L 100.0100, L500.2500 ####[facility] [address] [place], [address] GFR/1.73 sq M.predicted among non-blacks MDRD (S/P/Bld) [Vol rate/Area] 55 mL/min/{1.73_m2} Low >60 [facility] Comment on above: Result Comment: mL/m in/1.73m2 CKD-EPI Creatinine Equation (2020) Performed By: #### L 100.0100, L500.2500 ####[facility] [address] [place], [address] Glucose [Mass/Vol] 96 mg/dL Normal 70-99 [facility] Comment on above: Performed By: #### L 100.0100, L500.2500 ####[facility] [address] [place], [address] Potassium [Moles/Vol] 3.6 mmol/L Normal 3.3-5.1 [facility] Comment on above: Performed By: #### L 100.0100, L500.2500 ####[facility] [address] [place], [address] Sodium [Moles/Vol] 135 mmol/L Normal 133-145 [facility] Comment on above: Performed By: #### L 100.0100, L500.2500 ####[facility] [address] [place], [address] Urea nitrogen [Mass/Vol] 19 mg/dL Normal 4-19 [facility] Comment on above: Performed By: #### L 100.0100, L500.2500 ####[facility] [address] [place], [address] CBC W/Diff, Automatedon 05-0 6-2024 Absolute Lymph 2.28 X10 3/uL Normal 0.83-4.51 [facility] Comment on above: Performed By: #### L 100.0100, L500.2500 ####[facility] [address] [place], [address] Absolute Neut 2.8 X10 3/uL Normal 2.0-7.7 [facility] Comment on above: Performed By: #### L 100.0100, L500.2500 ####[facility] [address] [place], [address] Basophils/100 WBC (Bld) 0.9 % Normal 0-1 [facility] Comment on above: Performed By: #### L 100.0100, L500.2500 ####[facility] [address] [place], [address] Eosinophils/100 WBC (Bld) 2.6 % Normal 0-5 [facility] Comment on above: Performed By: #### L 100.0100, L500.2500 ####[facility] [address] [place], [address] Erythrocyte distribution width (RBC) [Ratio] 15.1 % High 11.6-14.6 [facility] Comment on above: Performed By: #### L 100.0100, L500.2500 ####[facility] [address] [place], [address] Hematocrit (Bld) [Volume fraction] 28.3 % Low 37-47 [facility] Comment on above: Performed By: #### L 100.0100, L500.2500 ####[facility] [address] [place], [address] Hemoglobin (Bld) [Mass/Vol] 9.1 g/dL Low 12.0-15.0 [facility] Comment on above: Performed By: #### L 100.0100, L500.2500 ####[facility] [address] [place], [address] IG% 0.200 Normal 0.0-0.9 [facility] Comment on above: Result Comment: IG% - Immature Granulocytes (promyelocytes, myelocytes andmetamyelocytes) > 1% indicates that a LEFT SHIFT is Present. Performed By: #### L 100.0100, L500.2500 ####[facility] [address] [place], [address] Lymphocytes/100 WBC (Bld) 39.1 % Normal 19-41 [facility] Comment on above: Performed By: #### L 100.0100, L500.2500 ####[facility] [address] [place], [address] MCH (RBC) [Entitic mass] 24.7 pg Low 27.0-32.0 [facility] Comment on above: Performed By: #### L 100.0100, L500.2500 ####[facility] [address] [place], [address] MCHC (RBC) [Mass/Vol] 32.2 g/dL Normal 32-36 [facility] Comment on above: Performed By: #### L 100.0100, L500.2500 ####[facility] [address] [place], [address] MCV (RBC) [Entitic vol] 76.9 fL Low 81-99 [facility] Comment on above: Performed By: #### L 100.0100, L500.2500 ####[facility] [address] [place], [address] Monocytes/100 WBC (Bld) 8.9 % Normal 0-10 [facility] Comment on above: Performed By: #### L 100.0100, L500.2500 ####[facility] [address] [place], [address] Neutrophils/100 WBC (Bld) 48.3 % Normal 47-70 [facility] Comment on above: Performed By: #### L 100.0100, L500.2500 ####[facility] [address] [place], [address] Nucleated RBC (Bld) [#/Vol] 0 10*3/uL Normal 0-5 [facility] Comment on above: Performed By: #### L 100.0100, L500.2500 ####[facility] [address] [place], [address] Platelet mean volume (Bld) [Entitic vol] 9.0 fL Normal 6.2-12.0 [facility] Comment on above: Performed By: #### L 100.0100, L500.2500 ####[facility] [address] [place], [address] Platelets (Bld) [#/Vol] 403 10*3/uL Normal 150-450 [facility] Comment on above: Performed By: #### L 100.0100, L500.2500 ####[facility] [address] [place], [address] RBC (Bld) [#/Vol] 3.68 10*6/uL Low 4.2-5.4 [facility] Comment on above: Performed By: #### L 100.0100, L500.2500 ####[facility] [address] [place], [address] RDW SD 41.8 fl Normal 35.1-43.9 [facility] Comment on above: Performed By: #### L 100.0100, L500.2500 ####[facility] [address] [place], [address] WBC (Bld) [#/Vol] 5.8 10*3/uL Normal 4.4-11.0 [facility] Comment on above: Performed By: #### L 100.0100, L500.2500 ####[facility] [address] [place], [address] Basic Metabolic Profile (BMP )on 10-29-2024 BUN/CRE 15.4 RATIO Normal 10-20 [facility] Comment on above: Performed By: #### L 501.5200, L100.0100, L500.2500, L501.2300 ####[facility] [address] [place], [address] Calcium [Mass/Vol] 8.5 mg/dL Normal 7.6-11.0 [facility] Comment on above: Performed By: #### L 501.5200, L100.0100, L500.2500, L501.2300 ####[facility] [address] [place], [address] Chloride [Moles/Vol] 95 mmol/L Low 98-108 [facility] Comment on above: Performed By: #### L 501.5200, L100.0100, L500.2500, L501.2300 ####[facility] [address] [place], [address] CO2 [Moles/Vol] 23.1 mmol/L Normal 21.0-32.0 [facility] Comment on above: Performed By: #### L 501.5200, L100.0100, L500.2500, L501.2300 ####[facility] [address] [place], [address] Creatinine [Mass/Vol] 1.93 mg/dL High 0.70-1.20 [facility] Comment on above: Performed By: #### L 501.5200, L100.0100, L500.2500, L501.2300 ####[facility] [address] [place], [address] ECRCL 43.82 ml/min Low 50-250 [facility] Comment on above: Performed By: #### L 501.5200, L100.0100, L500.2500, L501.2300 ####[facility] [address] [place], [address] GAP 12 Normal 5-15 [facility] Comment on above: Performed By: #### L 501.5200, L100.0100, L500.2500, L501.2300 ####[facility] [address] [place], [address] GFR/1.73 sq M.predicted among non-blacks MDRD (S/P/Bld) [Vol rate/Area] 33 mL/min/{1.73_m2} Low >60 [facility] Comment on above: Result Comment: mL/m in/1.73m2 CKD-EPI Creatinine Equation (2020) Performed By: #### L 501.5200, L100.0100, L500.2500, L501.2300 ####[facility] [address] [place], [address] Glucose [Mass/Vol] 100 mg/dL High 70-99 [facility] Comment on above: Performed By: #### L 501.5200, L100.0100, L500.2500, L501.2300 ####[facility] [address] [place], [address] Potassium [Moles/Vol] 3.5 mmol/L Normal 3.3-5.1 [facility] Comment on above: Performed By: #### L 501.5200, L100.0100, L500.2500, L501.2300 ####[facility] [address] [place], [address] Sodium [Moles/Vol] 131 mmol/L Low 133-145 [facility] Comment on above: Performed By: #### L 501.5200, L100.0100, L500.2500, L501.2300 ####[facility] [address] [place], [address] Urea nitrogen [Mass/Vol] 30 mg/dL High 4-19 [facility] Comment on above: Performed By: #### L 501.5200, L100.0100, L500.2500, L501.2300 ####[facility] [address] [place], [address] CBC W/Diff, Automatedon 05-0 5-2024 Absolute Lymph 1.54 X10 3/uL Normal 0.83-4.51 [facility] Comment on above: Performed By: #### L 501.5200, L100.0100, L500.2500, L501.2300 ####[facility] [address] [place], [address] Absolute Neut 3.2 X10 3/uL Normal 2.0-7.7 [facility] Comment on above: Performed By: #### L 501.5200, L100.0100, L500.2500, L501.2300 ####[facility] [address] [place], [address] Basophils/100 WBC (Bld) 0.6 % Normal 0-1 [facility] Comment on above: Performed By: #### L 501.5200, L100.0100, L500.2500, L501.2300 ####[facility] [address] [place], [address] Eosinophils/100 WBC (Bld) 1.5 % Normal 0-5 [facility] Comment on above: Performed By: #### L 501.5200, L100.0100, L500.2500, L501.2300 ####[facility] [address] [place], [address] Erythrocyte distribution width (RBC) [Ratio] 15.2 % High 11.6-14.6 [facility] Comment on above: Performed By: #### L 501.5200, L100.0100, L500.2500, L501.2300 ####[facility] [address] [place], [address] Hematocrit (Bld) [Volume fraction] 27.2 % Low 37-47 [facility] Comment on above: Performed By: #### L 501.5200, L100.0100, L500.2500, L501.2300 ####[facility] [address] [place], [address] Hemoglobin (Bld) [Mass/Vol] 8.8 g/dL Low 12.0-15.0 [facility] Comment on above: Performed By: #### L 501.5200, L100.0100, L500.2500, L501.2300 ####[facility] [address] [place], [address] IG% 0.400 Normal 0.0-0.9 [facility] Comment on above: Result Comment: IG% - Immature Granulocytes (promyelocytes, myelocytes andmetamyelocytes) > 1% indicates that a LEFT SHIFT is Present. Performed By: #### L 501.5200, L100.0100, L500.2500, L501.2300 ####[facility] [address] [place], [address] Lymphocytes/100 WBC (Bld) 28.9 % Normal 19-41 [facility] Comment on above: Performed By: #### L 501.5200, L100.0100, L500.2500, L501.2300 ####[facility] [address] [place], [address] MCH (RBC) [Entitic mass] 24.4 pg Low 27.0-32.0 [facility] Comment on above: Performed By: #### L 501.5200, L100.0100, L500.2500, L501.2300 ####[facility] [address] [place], [address] MCHC (RBC) [Mass/Vol] 32.4 g/dL Normal 32-36 [facility] Comment on above: Performed By: #### L 501.5200, L100.0100, L500.2500, L501.2300 ####[facility] [address] [place], [address] MCV (RBC) [Entitic vol] 75.3 fL Low 81-99 [facility] Comment on above: Performed By: #### L 501.5200, L100.0100, L500.2500, L501.2300 ####[facility] [address] [place], [address] Monocytes/100 WBC (Bld) 9.4 % Normal 0-10 [facility] Comment on above: Performed By: #### L 501.5200, L100.0100, L500.2500, L501.2300 ####[facility] [address] [place], [address] Neutrophils/100 WBC (Bld) 59.2 % Normal 47-70 [facility] Comment on above: Performed By: #### L 501.5200, L100.0100, L500.2500, L501.2300 ####[facility] [address] [place], [address] Nucleated RBC (Bld) [#/Vol] 0 10*3/uL Normal 0-5 [facility] Comment on above: Performed By: #### L 501.5200, L100.0100, L500.2500, L501.2300 ####[facility] [address] [place], [address] Platelet mean volume (Bld) [Entitic vol] 9.3 fL Normal 6.2-12.0 [facility] Comment on above: Performed By: #### L 501.5200, L100.0100, L500.2500, L501.2300 ####[facility] [address] [place], [address] Platelets (Bld) [#/Vol] 396 10*3/uL Normal 150-450 [facility] Comment on above: Performed By: #### L 501.5200, L100.0100, L500.2500, L501.2300 ####[facility] [address] [place], [address] RBC (Bld) [#/Vol] 3.61 10*6/uL Low 4.2-5.4 [facility] Comment on above: Performed By: #### L 501.5200, L100.0100, L500.2500, L501.2300 ####[facility] [address] [place], [address] RDW SD 41.3 fl Normal 35.1-43.9 [facility] Comment on above: Performed By: #### L 501.5200, L100.0100, L500.2500, L501.2300 ####[facility] [address] [place], [address] WBC (Bld) [#/Vol] 5.3 10*3/uL Normal 4.4-11.0 [facility] Comment on above: Performed By: #### L 501.5200, L100.0100, L500.2500, L501.2300 ####[facility] [address], [address] CDIFF (PCR)on 10-29-2024 CDIFF Is the patient recei ving laxatives? N New/unexplained onset of 3 or more stools in past 24 hrs? Y Pending 027 027 NAP1-B1 Presumptive Negative *for epidemiolologic???use C. Diff PCR Negative- No toxigenic C. Diff Detected Normal [facility] Comment on above: Performed By: #### M 100.6796 ####[facility] [address], [address] ENTERIC PATHOGEN PANEL STOOL on 10-29-2024 EP PANEL CAMPYLOBACTER Not Detected Norovirus Not Detected Rotavirus Not Detected Salmonella Not Detected Shiga Toxin Not Detected Shigella sp. Not Detected VIBRIO Not Detected Yersinia Not Detected Normal [facility] Comment on above: Performed By: #### M 100.637 ####[facility] [address] [place], [address] Magnesiumon 10-29-2024 Magnesium [Mass/Vol] 1.5 mg/dL Normal 1.5-2.2 [facility] Comment on above: Performed By: #### L 501.5200, L100.0100, L500.2500, L501.2300 ####[facility] [address] [place], [address] Phosphoruson 10-29-2024 Phosphate [Mass/Vol] 4.0 mg/dL Normal 2.7-4.5 [facility] Comment on above: Performed By: #### L 501.5200, L100.0100, L500.2500, L501.2300 ####[facility] [address] [place], [address] Basic Metabolic Profile (BMP )on 10-28-2024 BUN/CRE 10.4 RATIO Normal 10-20 [facility] Comment on above: Performed By: #### L 100.0100, L501.5200, L500.2500 ####[facility] [address] [place], [address] Calcium [Mass/Vol] 10.5 mg/dL Normal 7.6-11.0 [facility] Comment on above: Performed By: #### L 100.0100, L501.5200, L500.2500 ####[facility] [address] [place], [address] Chloride [Moles/Vol] 81 mmol/L Low 98-108 [facility] Comment on above: Performed By: #### L 100.0100, L501.5200, L500.2500 ####[facility] [address] [place], [address] CO2 [Moles/Vol] 20.9 mmol/L Low 21.0-32.0 [facility] Comment on above: Performed By: #### L 100.0100, L501.5200, L500.2500 ####[facility] [address] [place], [address] Creatinine [Mass/Vol] 3.36 mg/dL High 0.70-1.20 [facility] Comment on above: Performed By: #### L 100.0100, L501.5200, L500.2500 ####[facility] [address] [place], [address] ECRCL 24.64 ml/min Low 50-250 [facility] Comment on above: Performed By: #### L 100.0100, L501.5200, L500.2500 ####[facility] [address] [place], [address] GAP 26 High 5-15 [facility] Comment on above: Performed By: #### L 100.0100, L501.5200, L500.2500 ####[facility] [address] [place], [address] GFR/1.73 sq M.predicted among non-blacks MDRD (S/P/Bld) [Vol rate/Area] 17 mL/min/{1.73_m2} Low >60 [facility] Comment on above: Result Comment: mL/m in/1.73m2 CKD-EPI Creatinine Equation (2020) Performed By: #### L 100.0100, L501.5200, L500.2500 ####[facility] [address] [place], [address] Glucose [Mass/Vol] 165 mg/dL High 70-99 [facility] Comment on above: Performed By: #### L 100.0100, L501.5200, L500.2500 ####[facility] [address] [place], [address] Potassium [Moles/Vol] 4.5 mmol/L Normal 3.3-5.1 [facility] Comment on above: Result Comment: Hemo lysis present, Results??could be affected.?? Performed By: #### L 100.0100, L501.5200, L500.2500 ####[facility] [address] [place], [address] Sodium [Moles/Vol] 127 mmol/L Low 133-145 [facility] Comment on above: Performed By: #### L 100.0100, L501.5200, L500.2500 ####[facility] [address] [place], [address] Urea nitrogen [Mass/Vol] 35 mg/dL High 4-19 [facility] Comment on above: Performed By: #### L 100.0100, L501.5200, L500.2500 ####[facility] [address] [place], [address] CBC W/Diff, Automatedon 05-0 -2024 Absolute Lymph 2.13 X10 3/uL Normal 0.83-4.51 [facility] Comment on above: Performed By: #### L 100.0100, L501.5200, L500.2500 ####[facility] [address] [place], [address] Absolute Neut 9.2 X10 3/uL High 2.0-7.7 [facility] Comment on above: Performed By: #### L 100.0100, L501.5200, L500.2500 ####[facility] [address] [place], [address] Basophils/100 WBC (Bld) 0.4 % Normal 0-1 [facility] Comment on above: Performed By: #### L 100.0100, L501.5200, L500.2500 ####[facility] [address] [place], [address] Eosinophils/100 WBC (Bld) 0.1 % Normal 0-5 [facility] Comment on above: Performed By: #### L 100.0100, L501.5200, L500.2500 ####[facility] [address] [place], [address] Erythrocyte distribution width (RBC) [Ratio] 15.5 % High 11.6-14.6 [facility] Comment on above: Performed By: #### L 100.0100, L501.5200, L500.2500 ####[facility] [address] [place], [address] Hematocrit (Bld) [Volume fraction] 38.3 % Normal 37-47 [facility] Comment on above: Performed By: #### L 100.0100, L501.5200, L500.2500 ####[facility] [address] [place], [address] Hemoglobin (Bld) [Mass/Vol] 12.2 g/dL Normal 12.0-15.0 [facility] Comment on above: Performed By: #### L 100.0100, L501.5200, L500.2500 ####[facility] [address] [place], [address] IG% 0.500 Normal 0.0-0.9 [facility] Comment on above: Result Comment: IG% - Immature Granulocytes (promyelocytes, myelocytes andmetamyelocytes) > 1% indicates that a LEFT SHIFT is Present. Performed By: #### L 100.0100, L501.5200, L500.2500 ####[facility] [address] [place], [address] Lymphocytes/100 WBC (Bld) 17.1 % Low 19-41 [facility] Comment on above: Performed By: #### L 100.0100, L501.5200, L500.2500 ####[facility] [address] [place], [address] MCH (RBC) [Entitic mass] 24.4 pg Low 27.0-32.0 [facility] Comment on above: Performed By: #### L 100.0100, L501.5200, L500.2500 ####[facility] [address] [place], [address] MCHC (RBC) [Mass/Vol] 31.9 g/dL Low 32-36 [facility] Comment on above: Performed By: #### L 100.0100, L501.5200, L500.2500 ####[facility] [address] [place], [address] MCV (RBC) [Entitic vol] 76.4 fL Low 81-99 [facility] Comment on above: Performed By: #### L 100.0100, L501.5200, L500.2500 ####[facility] [address] [place], [address] Monocytes/100 WBC (Bld) 7.7 % Normal 0-10 [facility] Comment on above: Performed By: #### L 100.0100, L501.5200, L500.2500 ####[facility] [address] [place], [address] Neutrophils/100 WBC (Bld) 74.2 % High 47-70 [facility] Comment on above: Performed By: #### L 100.0100, L501.5200, L500.2500 ####[facility] [address] [place], [address] Nucleated RBC (Bld) [#/Vol] 0 10*3/uL Normal 0-5 [facility] Comment on above: Performed By: #### L 100.0100, L501.5200, L500.2500 ####[facility] [address] [place], [address] Platelet mean volume (Bld) [Entitic vol] 10.1 fL Normal 6.2-12.0 [facility] Comment on above: Performed By: #### L 100.0100, L501.5200, L500.2500 ####[facility] [address] [place], [address] Platelets (Bld) [#/Vol] 675 10*3/uL High 150-450 [facility] Comment on above: Performed By: #### L 100.0100, L501.5200, L500.2500 ####[facility] [address] [place], [address] RBC (Bld) [#/Vol] 5.01 10*6/uL Normal 4.2-5.4 [facility] Comment on above: Performed By: #### L 100.0100, L501.5200, L500.2500 ####[facility] [address] [place], [address] RDW SD 41.5 fl Normal 35.1-43.9 [facility] Comment on above: Performed By: #### L 100.0100, L501.5200, L500.2500 ####[facility] [address] [place], [address] WBC (Bld) [#/Vol] 12.4 10*3/uL High 4.4-11.0 [facility] Comment on above: Performed By: #### L 100.0100, L501.5200, L500.2500 ####[facility] [address] [place], [address] Emergency Department Summary on 10-28-2024 Emergency Department Summary Normal [facility] H AND P Exam - Hospitaliston 10-28-2024 H&P Exam - Hospitalist Normal [facility] Magnesiumon 10-28-2024 Magnesium [Mass/Vol] 1.7 mg/dL Normal 1.5-2.2 [facility] Comment on above: Performed By: #### L 100.0100, L501.5200, L500.2500 ####[facility] [address] [place], [address] ALLIED HEALTHon 10-26-2024 ALLIED HEALTH HNO ID: [id number] Author: STEFANY CALVERT RN Service: Wound/Ostomy Author [...] x 1 1/4 Oval (Coloplast 2Pc Pouch #38370 Convex Wafer #[id number]) Placed Attached 2pc Pouch Over Over Stoma [...] Independent Recommended Supplies: Coloplast 2pc High Output #41116 Pouch attached to drainage bag Coloplast #99290 Convex Wafer Cut To 1 1/2 x 1 1/4 Oval Reading #7806 Large Barrier Ring Reading Barrier Extenders # [phone] Please Advise Wound Care [phone] If You Have Difficulty Getting Supplies From Cart Room. Patient tolerated the change well. Supplies at bedside. If additional ostomy supplies are needed, please call [facility] [employer] ([phone]) for above mentioned supplies. If supplies are unavailable in [facility] [employer], please secure chat [facility] Nurses or call extension [phone] to request more supplies. Normal [facility] CBC panel Auto (Bld)on 10-26 Erythrocyte distribution width (RBC) [Ratio] 14.7 % Normal 11.5-15.0 [facility] Comment on above: Order Comment: Speci men Type: BLOOD SPECIMEN Ordering Facility: [facility] Address: [address] [place] [address] Performed By: #### 5 7021-8 #### [facility] CLIA [id number] [address] [place] [address] [place] Hematocrit (Bld) [Volume fraction] 29.9 % Low 36.0-46.0 [facility] Comment on above: Order Comment: Speci men Type: BLOOD SPECIMEN Ordering Facility: [facility] Address: [address] [place] [address] Performed By: #### 5 7021-8 #### [facility] CLIA [id number] [address] [place] [address] [place] Hemoglobin (Bld) [Mass/Vol] 9.2 g/dL Low 11.5-15.5 [facility] Comment on above: Order Comment: Speci men Type: BLOOD SPECIMEN Ordering Facility: [facility] Address: [address] [place] [address] Performed By: #### 5 7021-8 #### [facility] CLIA [id number] [address] [place] [address] [place] MCH (RBC) [Entitic mass] 24.1 pg Low 26.0-34.0 [facility] Comment on above: Order Comment: Speci men Type: BLOOD SPECIMEN Ordering Facility: [facility] Address: [address] [place] [address] Performed By: #### 5 7021-8 #### [facility] CLIA [id number] [address] [place] [address] [place] MCHC (RBC) [Mass/Vol] 30.8 g/dL Normal 30.5-36.0 [facility] Comment on above: Order Comment: Speci men Type: BLOOD SPECIMEN Ordering Facility: [facility] Address: [address] [place] [address] Performed By: #### 5 7021-8 #### [facility] CLIA [id number] [address] [place] [address] [place] MCV (RBC) [Entitic vol] 78.5 fL Low 80.0-100.0 [facility] Comment on above: Order Comment: Speci men Type: BLOOD SPECIMEN Ordering Facility: [facility] Address: [address] [place] [place] [id number] Performed By: #### 5 7021-8 #### [facility] CLIA [id number] [address] [place] [address] [place] Nucleated RBC (Bld) [#/Vol] 10*3/uL Normal <0.01 [facility] Comment on above: Order Comment: Speci men Type: BLOOD SPECIMEN Ordering Facility: [facility] Address: [address] [place] [address] Performed By: #### 5 7021-8 #### [facility] CLIA [id number] [address] [place] [address] [place] Platelet mean volume (Bld) [Entitic vol] 8.9 fL Low 9.0-12.7 [facility] Comment on above: Order Comment: Speci men Type: BLOOD SPECIMEN Ordering Facility: [facility] Address: [address] [place] [address] Performed By: #### 5 7021-8 #### [facility] CLIA [id number] [address] [place] [address] [place] Platelets (Bld) [#/Vol] 371 10*3/uL Normal 150-400 [facility] Comment on above: Order Comment: Speci men Type: BLOOD SPECIMEN Ordering Facility: [facility] Address: [address] [place] [address] Performed By: #### 5 7021-8 #### [facility] CLIA [id number] [address] [place], [place] [address] [place] RBC (Bld) [#/Vol] 3.81 10*6/uL Low 3.90-5.20 [facility] Comment on above: Order Comment: Speci men Type: BLOOD SPECIMEN Ordering Facility: [facility] Address: [address] [place] [address] Performed By: #### 5 7021-8 #### [facility] CLIA [id number] [address] [id number] [place] WBC (Bld) [#/Vol] 4.79 10*3/uL Normal 3.70-11.00 [facility] Comment on above: Order Comment: Speci men Type: BLOOD SPECIMEN Ordering Facility: [facility] Address: [address] [place] [address] Performed By: #### 5 7021-8 #### [facility] CLIA [id number] [address] [id number] [place] CNDSon 10-26-2024 CNDS HNO ID: [id number] Author: WILLIS FINCH DO Service: Hospital Medicine [...] resection with ostomy Patient sent to an [facility] ED due to high output ostomy She had evidence of renal failure as well as multiple electrolyte abnormalities (see below) Gastroenterology consulted C. diff negative Stool PCR negative Home Imodium dose was increased Ostomy care offered Output did lessen Patient will follow-up at [facility] with her surgeon Dr. Smith as well as transplant surgeon Dr. Devine Acute kidney injury Creatinine 2.8 in [facility] ED Likely secondary to GI losses Patient given IV fluids Creatinine normalized by discharge Hyponatremia Sodium 130 in [facility] ED Likely secondary to GI losses Patient given IV fluids Hypokalemia Potassium 3.3 in [facility] ED Likely secondary to GI losses Supplementation provided Rx for potassium chloride provided on discharge Left foot discoloration, ?gangrene Left toes are black, per patient this began while she was at [facility] Chart review indicates she had bilateral [...] These medications were sent to e- [id number] [place] [address] - [address] (more content not included)... Normal [facility] Comprehensive metabolic 2000 panelon 10-26-2024 Albumin [Mass/Vol] 3.0 g/dL Low 3.2-5.0 [facility] Comment on above: Order Comment: Dora finch Type: BLOOD SPECIMEN Ordering Facility: [facility] Address: [address] [place] [address] Performed By: #### 5 7021-8 #### [facility] CLIA [id number] [address] [place] [address] [place] ALP [Catalytic activity/Vol] 125 U/L High 45-117 [facility] Comment on above: Order Comment: Dora finch Type: BLOOD SPECIMEN Ordering Facility: [facility] Address: [address] [place], [place] [id number] Performed By: #### 5 7021-8 #### [facility] CLIA [id number] [address] [place] [address] [place] ALT [Catalytic activity/Vol] 16 U/L Normal 13-61 [facility] Comment on above: Order Comment: Dora finch Type: BLOOD SPECIMEN Ordering Facility: [facility] Address: [address] [place] [address] Result Comment: Resu lts may be falsely depressed after the administration of Sulfasalazine and/or Sulfapyridine. Performed By: #### 5 7021-8 #### [facility] CLIA [id number] [address] [place], [place] [address] [place] Anion gap [Moles/Vol] 9 mmol/L Normal 5-16 [facility] Comment on above: Order Comment: Speci men Type: BLOOD SPECIMEN Ordering Facility: [facility] Address: [address] [place] [address] Performed By: #### 5 7021-8 #### [facility] CLIA [id number] [address] [place] [address] [place] AST [Catalytic activity/Vol] 24 U/L Normal 8-34 [facility] Comment on above: Order Comment: Florii stef Type: BLOOD SPECIMEN Ordering Facility: [facility] Address: [address] [place] [address] Result Comment: Resu lts may be falsely depressed after the administration of Sulfasalazine and/or Sulfapyridine. Performed By: #### 5 7021-8 #### [facility] CLIA [id number] [address] [place] [address] [place] Bilirubin [Mass/Vol] 1.2 mg/dL High 0.2-1.0 [facility] Comment on above: Order Comment: Florii stef Type: BLOOD SPECIMEN Ordering Facility: [facility] Address: [address] [place] [address] Performed By: #### 5 7021-8 #### [facility] CLIA [id number] [address] [place] [address] [place] Calcium [Mass/Vol] 9.5 mg/dL Normal 8.5-10.5 [facility] Comment on above: Order Comment: Florii stef Type: BLOOD SPECIMEN Ordering Facility: [facility] Address: [address] [place] [address] Performed By: #### 5 7021-8 #### [facility] CLIA [id number] [address] [place], [place] [address] [place] Chloride [Moles/Vol] 94 mmol/L Low 98-107 [facility] Comment on above: Order Comment: Speci men Type: BLOOD SPECIMEN Ordering Facility: [facility] Address: [address] [place] [address] Performed By: #### 5 7021-8 #### [facility] CLIA [id number] [address] [place] [address] [place] CO2 [Moles/Vol] 30 mmol/L Normal 21-32 [facility] Comment on above: Order Comment: Speci men Type: BLOOD SPECIMEN Ordering Facility: [facility] Address: [address] [place] [address] Performed By: #### 5 7021-8 #### [facility] CLIA [id number] [address] [place] [address] [place] Creatinine [Mass/Vol] 0.92 mg/dL Normal 0.51-0.95 [facility] Comment on above: Order Comment: Speci men Type: BLOOD SPECIMEN Ordering Facility: [facility] Address: [address] [place] [address] Result Comment: Marissa ents receiving either N-Acetylcysteine (NAC) or Metamizole prior to venipuncture, may have falsely depressed results. Performed By: #### 5 7021-8 #### [facility] CLIA [id number] [address] [place] [address] [place] Creatinine and Glomerular filtration rate.predicted panel (S/P/Bld) 80 mL/min/1.73m??? Normal >=60 [facility] Comment on above: Order Comment: Speci men Type: BLOOD SPECIMEN Ordering Facility: [facility] Address: [address] [place] [address] Result Comment: Zeny mated Glomerular Filtration Rate [...] GFR. Performed By: #### 5 7021-8 #### [facility] CLIA [id number] [address] [place] [address] [place] Glucose [Mass/Vol] 100 mg/dL Normal 70-100 [facility] Comment on above: Order Comment: Dora finch Type: BLOOD SPECIMEN Ordering Facility: [facility] Address: [address] [place], [place] [id number] Result Comment: The [place] [employer] (ADA) provides guidance for cutoff [...] Standards of Medical Care in Diabetes 2016, [place] [employer]. Diabetes Care. 2016.39(Suppl 1). Results may be falsely elevated after the administration of Sulfapyridine. Results may be falsely depressed after the administration of Sulfasalazine. Performed By: #### 5 7021-8 #### [facility] CLIA [id number] [address] [place] [address] [place] Potassium [Moles/Vol] 3.4 mmol/L Low 3.5-5.1 [facility] Comment on above: Order Comment: Dora finch Type: BLOOD SPECIMEN Ordering Facility: [facility] Address: [address] [place] [address] Performed By: #### 5 7021-8 #### [facility] CLIA [id number] [address] [place] [address] [place] Protein [Mass/Vol] 7.3 g/dL Normal 6.0-8.5 [facility] Comment on above: Order Comment: Dora finch Type: BLOOD SPECIMEN Ordering Facility: [facility] Address: [address] [place] [address] Performed By: #### 5 7021-8 #### [facility] CLIA [id number] [address] [place], [place] [address] [place] Sodium [Moles/Vol] 133 mmol/L Low 136-145 [facility] Comment on above: Order Comment: Speci men Type: BLOOD SPECIMEN Ordering Facility: [facility] Address: [address] [place] [address] Performed By: #### 5 7021-8 #### [facility] CLIA [id number] [address] [place] [address] [place] Urea nitrogen [Mass/Vol] 8 mg/dL Normal 7-26 [facility] Comment on above: Order Comment: Speci men Type: BLOOD SPECIMEN Ordering Facility: [facility] Address: [address] [place] [address] Performed By: #### 5 7021-8 #### [facility] CLIA [id number] [address] [place] [address] [place] Magnesium SerPl-mCncon 10-26 Magnesium [Mass/Vol] 1.5 mg/dL Low 1.6-2.6 [facility] Comment on above: Order Comment: Speci men Type: BLOOD SPECIMEN Ordering Facility: [facility] Address: [address] [place] [address] Performed By: #### 2 4321-2 #### [facility] CLIA [id number] [address] [place] [address] [place] ALLIED HEALTHon 10-25-2024 ALLIED HEALTH HNO ID: [id number] Author: STEFANY CALVERT, NATHANAEL Service: Wound/Ostomy Author [...] nursing Recommended Supplies: Coloplast 2pc High Output #64895 Pouch attached to drainage bag Coloplast #08334 Convex Wafer Cut To 1 1/2 x 1 1/4 Oval Augustine #8815 Small Barrier Ring Augustine Barrier Extenders # [phone] Please Advise Wound Care [phone] If You Have Difficulty Getting Supplies From Cart Room. If additional ostomy supplies are needed, please call [facility] ([phone]) for above mentioned supplies. If supplies are unavailable in [facility], please secure chat [facility] Nurses or call extension [phone] to request more supplies. [facility] ALLIED HEALTH HNO ID: [id number] Author: STEFANY CALVERT RN Service: Wound/Ostomy Author [...] Supplies Are Available Through Cart/Supply Room In [facility]. Recommended Supplies: Coloplast 2pc High Output #69948 Pouch attached to drainage bag Coloplast #09342 Flat Wafer Augustine #8815 Small Barrier Ring Reading Barrier Extenders # [phone] Please Advise Wound Care [phone] If You Have Difficulty Getting Supplies From Cart Room. Normal [facility] CBC panel Auto (Bld)on 10-25 Erythrocyte distribution width (RBC) [Ratio] 14.8 % Normal 11.5-15.0 [facility] Comment on above: Order Comment: Dora finch Type: BLOOD SPECIMEN Ordering Facility: [facility] Address: [address] [place] [address] Performed By: #### 5 7021-8 #### [facility] CLIA [id number] [address] [place] [address] [place] Hematocrit (Bld) [Volume fraction] 33.3 % Low 36.0-46.0 [facility] Comment on above: Order Comment: Dora finch Type: BLOOD SPECIMEN Ordering Facility: [facility] Address: [address] [place] [address] Performed By: #### 5 7021-8 #### [facility] CLIA [id number] [address] [place] [address] [place] Hemoglobin (Bld) [Mass/Vol] 10.3 g/dL Low 11.5-15.5 [facility] Comment on above: Order Comment: Dora finch Type: BLOOD SPECIMEN Ordering Facility: [facility] Address: [address] [place] [address] Performed By: #### 5 7021-8 #### [facility] CLIA [id number] [address] [place] [address] OF [facility] MCH (RBC) [Entitic mass] 24.0 pg Low 26.0-34.0 [facility] Comment on above: Order Comment: Speci men Type: BLOOD SPECIMEN Ordering Facility: [facility] Address: [address] [place] [address] Performed By: #### 5 7021-8 #### [facility] CLIA [id number] [address] [place] [address] [place] MCHC (RBC) [Mass/Vol] 30.9 g/dL Normal 30.5-36.0 [facility] Comment on above: Order Comment: Speci men Type: BLOOD SPECIMEN Ordering Facility: [facility] Address: [address] [place] [address] Performed By: #### 5 7021-8 #### [facility] [place] [id number] [address] [place] [address] [place] MCV (RBC) [Entitic vol] 77.6 fL Low 80.0-100.0 [facility] Comment on above: Order Comment: Speci men Type: BLOOD SPECIMEN Ordering Facility: [facility] Address: [address] [place] [address] Performed By: #### 5 7021-8 #### [facility] IA [id number] [address] [place] [address] [place] Nucleated RBC (Bld) [#/Vol] 10*3/uL Normal <0.01 [facility] Comment on above: Order Comment: Speci men Type: BLOOD SPECIMEN Ordering Facility: [facility] Address: [address] [place] [address] Performed By: #### 5 7021-8 #### [facility] IA [id number] [address] [place] [address] [place] Platelet mean volume (Bld) [Entitic vol] 9.3 fL Normal 9.0-12.7 [facility] Comment on above: Order Comment: Speci men Type: BLOOD SPECIMEN Ordering Facility: [facility] Address: [address] [place] [id number] Performed By: #### 5 7021-8 #### [facility] CLIA [id number] [address] [place], [place] [address] [facility] Platelets (Bld) [#/Vol] 364 10*3/uL Normal 150-400 [facility] Comment on above: Order Comment: Speci men Type: BLOOD SPECIMEN Ordering Facility: [facility] Address: [address] [place], [place] [address] Performed By: #### 5 7021-8 #### [facility] CLIA [id number] [address] [place] [address] RBC (Bld) [#/Vol] 4.29 10*6/uL Normal 3.90-5.20 [facility] Comment on above: Order Comment: Speci men Type: BLOOD SPECIMEN Ordering Facility: [facility] Address: [address] [place] [address] Performed By: #### 5 7021-8 #### [facility] CLIA [id number] [address] [place] [address] [place] WBC (Bld) [#/Vol] 6.18 10*3/uL Normal 3.70-11.00 [facility] Comment on above: Order Comment: Speci men Type: BLOOD SPECIMEN Ordering Facility: [facility] Address: [facility] [place] [id number] Performed By: #### 5 7021-8 #### [facility] CLIA [id number] [address] [place], [place] [address] [facility] Comprehensive metabolic 2000 panelon 10-25-2024 Albumin [Mass/Vol] 3.0 g/dL Low 3.2-5.0 [facility] Comment on above: Order Comment: Speci men Type: BLOOD SPECIMEN Ordering Facility: [facility] Address: [facility] [place] [address] Performed By: #### 5 7021-8 #### [facility] CLIA [id number] [address] [place] [address] [place] ALP [Catalytic activity/Vol] 137 U/L High 45-117 [facility] Comment on above: Order Comment: Speci men Type: BLOOD SPECIMEN Ordering Facility: [facility] Address: [address] [place] [address] Performed By: #### 5 7021-8 #### [facility] CLIA [id number] [address] [place] [address] [place] ALT [Catalytic activity/Vol] 14 U/L Normal 13-61 [facility] Comment on above: Order Comment: Speci men Type: BLOOD SPECIMEN Ordering Facility: [facility] Address: [address] [place] [address] Result Comment: Resu lts may be falsely depressed after the administration of Sulfasalazine and/or Sulfapyridine. Performed By: #### 5 7021-8 #### [facility] CLIA [id number] [address] [place] [address] [place] Anion gap [Moles/Vol] 9 mmol/L Normal 5-16 [facility] Comment on above: Order Comment: Speci men Type: BLOOD SPECIMEN Ordering Facility: [facility] Address: [address] [place] [address] Performed By: #### 5 7021-8 #### [facility] CLIA [id number] [address] [place] [address] [place] AST [Catalytic activity/Vol] 16 U/L Normal 8-34 [facility] Comment on above: Order Comment: Speci men Type: BLOOD SPECIMEN Ordering Facility: [facility] Address: [address] [place] [address] Result Comment: Resu lts may be falsely depressed after the administration of Sulfasalazine and/or Sulfapyridine. Performed By: #### 5 7021-8 #### [facility] CLIA [id number] [address] [place] [address] [place] Bilirubin [Mass/Vol] 1.3 mg/dL High 0.2-1.0 [facility] Comment on above: Order Comment: Speci men Type: BLOOD SPECIMEN Ordering Facility: [facility] Address: [address] [place] [address] Performed By: #### 5 7021-8 #### [facility] CLIA [id number] [address] [place] [address] [place] Calcium [Mass/Vol] 9.6 mg/dL Normal 8.5-10.5 [facility] Comment on above: Order Comment: Speci men Type: BLOOD SPECIMEN Ordering Facility: [facility] Address: [address] [place] [address] Performed By: #### 5 7021-8 #### [facility] CLIA [id number] [address] [place] [address] [place] Chloride [Moles/Vol] 93 mmol/L Low 98-107 [facility] Comment on above: Order Comment: Speci men Type: BLOOD SPECIMEN Ordering Facility: [facility] Address: [address] [place] [address] Performed By: #### 5 7021-8 #### [facility] CLIA [id number] [address] [place] [address] [place] CO2 [Moles/Vol] 33 mmol/L High 21-32 [facility] Comment on above: Order Comment: Speci men Type: BLOOD SPECIMEN Ordering Facility: [facility] Address: [address] [place] [address] Performed By: #### 5 7021-8 #### [facility] CLIA [id number] [address] [place] [address] [place] Creatinine [Mass/Vol] 1.00 mg/dL High 0.51-0.95 [facility] Comment on above: Order Comment: Speci men Type: BLOOD SPECIMEN Ordering Facility: [facility] Address: [address] [place] [address] Result Comment: Marissa ents receiving either N-Acetylcysteine (NAC) or Metamizole prior to venipuncture, may have falsely depressed results. Performed By: #### 5 7021-8 #### [facility] CLIA [id number] [address] [place] [address] [place] Creatinine and Glomerular filtration rate.predicted panel (S/P/Bld) 73 mL/min/1.73m??? Normal >=60 [facility] Comment on above: Order Comment: Dora finch Type: BLOOD SPECIMEN Ordering Facility: [facility] Address: [address] [place] [address] Result Comment: Zeny mated Glomerular Filtration Rate [...] GFR. Performed By: #### 5 7021-8 #### [facility] CLIA [id number] [address] [place] [address] [place] Glucose [Mass/Vol] 89 mg/dL Normal 70-100 [facility] Comment on above: Order Comment: Dora finch Type: BLOOD SPECIMEN Ordering Facility: [facility] Address: [address] [place] [address] Result Comment: The [place] Diabetes [employer] (ADA) provides guidance for cutoff [...] Standards of Medical Care in Diabetes 2016, [place] [employer]. Diabetes Care. 2016.39(Suppl 1). Results may be falsely elevated after the administration of Sulfapyridine. Results may be falsely depressed after the administration of Sulfasalazine. Performed By: #### 5 7021-8 #### [facility] CLIA [id number] [address] [place] [address] [place] Potassium [Moles/Vol] 3.4 mmol/L Low 3.5-5.1 [facility] Comment on above: Order Comment: Speci men Type: BLOOD SPECIMEN Ordering Facility: [facility] Address: [address] [place] [address] Performed By: #### 5 7021-8 #### [facility] CLIA [id number] [address] [place] [address] [place] Protein [Mass/Vol] 7.7 g/dL Normal 6.0-8.5 [facility] Comment on above: Order Comment: Speci men Type: BLOOD SPECIMEN Ordering Facility: [facility] Address: [address] [place] [address] Performed By: #### 5 7021-8 #### [facility] CLIA [id number] [address] [place] [address] [place] Sodium [Moles/Vol] 135 mmol/L Low 136-145 [facility] Comment on above: Order Comment: Speci men Type: BLOOD SPECIMEN Ordering Facility: [facility] Address: [address] [place] [address] Performed By: #### 5 7021-8 #### [facility] CLIA [id number] [address] [place] [address] [place] Urea nitrogen [Mass/Vol] 11 mg/dL Normal 7-26 [facility] Comment on above: Order Comment: Speci men Type: BLOOD SPECIMEN Ordering Facility: [facility] Address: [address] [place] [address] Performed By: #### 5 7021-8 #### [facility] CLIA [id number] [address] [place] [address] [place] Magnesium SerPl-mCncon 10-25 Magnesium [Mass/Vol] 1.7 mg/dL Normal 1.6-2.6 [facility] Comment on above: Order Comment: Speci men Type: BLOOD SPECIMEN Ordering Facility: [facility] Address: [address] [place] [address] Performed By: #### 5 7021-8 #### [facility] CLIA [id number] [address] [place] [place] [id number] [place] CBC panel Auto (Bld)on 10-24 Erythrocyte distribution width (RBC) [Ratio] 14.8 % Normal 11.5-15.0 [facility] Comment on above: Order Comment: Speci men Type: BLOOD SPECIMENOrdering Facility: [facility] Address: [address] [place] [address] Performed By: #### 5 8410-2 ####[facility]ATORYCLIA [id number] [address] [facility] Hematocrit (Bld) [Volume fraction] 32.6 % Low 36.0-46.0 [facility] Comment on above: Order Comment: Speci men Type: BLOOD SPECIMENOrdering Facility: [facility] Address: [address] [place] [address] Performed By: #### 5 8410-2 ####[facility]ORYCLIA [id number] [address] [place] Hemoglobin (Bld) [Mass/Vol] 10.3 g/dL Low 11.5-15.5 [facility] Comment on above: Order Comment: Speci men Type: BLOOD SPECIMENOrdering Facility: [facility] Address: [address] [place] [address] Performed By: #### 5 8410-2 ####[facility]ATORYCLIA [id number] [address] [place] MCH (RBC) [Entitic mass] 24.1 pg Low 26.0-34.0 [facility] Comment on above: Order Comment: Speci men Type: BLOOD SPECIMENOrdering Facility: [facility] Address: [address] [place] [address] Performed By: #### 5 8410-2 ####[facility]ATORYCLIA [id number] [address] [place] MCHC (RBC) [Mass/Vol] 31.6 g/dL Normal 30.5-36.0 [facility] Comment on above: Order Comment: Speci men Type: BLOOD SPECIMENOrdering Facility: [facility] Address: [facility] [place] [place] [address] Performed By: #### 5 8410-2 ####[facility]ATORYCLIA [id number] [place] [id number] [place] MCV (RBC) [Entitic vol] 76.2 fL Low 80.0-100.0 [facility] Comment on above: Order Comment: Speci men Type: BLOOD SPECIMENOrdering Facility: [facility] Address: [address] [place] [address] Performed By: #### 5 8410-2 ####[facility]ATORYCLIA [id number] [place] [address] [place] Nucleated RBC (Bld) [#/Vol] 10*3/uL Normal <0.01 [facility] Comment on above: Order Comment: Speci men Type: BLOOD SPECIMENOrdering Facility: [facility] Address: [address] [place] [address] Performed By: #### 5 8410-2 ####[facility]ATORYCLIA [id number] [place] [address] [place] Platelet mean volume (Bld) [Entitic vol] 8.7 fL Low 9.0-12.7 [facility] Comment on above: Order Comment: Speci men Type: BLOOD SPECIMENOrdering Facility: [facility] Address: [address] [place] [address] Performed By: #### 5 8410-2 ####[facility]ATORYCLIA [id number] [place] [address] [place] Platelets (Bld) [#/Vol] 408 10*3/uL High 150-400 [facility] Comment on above: Order Comment: Speci men Type: BLOOD SPECIMENOrdering Facility: [facility] Address: [address] [place] [address] Performed By: #### 5 8410-2 ####[facility]ATORYCLIA [id number] [place] [id number] [facility] [place] RBC (Bld) [#/Vol] 4.28 10*6/uL Normal 3.90-5.20 [facility] Comment on above: Order Comment: Speci men Type: BLOOD SPECIMENOrdering Facility: [facility] Address: [address] [place] [address] Performed By: #### 5 8410-2 ####[facility]ATORYCLIA [id number] [address] WBC (Bld) [#/Vol] 6.06 10*3/uL Normal 3.70-11.00 [facility] Comment on above: Order Comment: Speci men Type: BLOOD SPECIMENOrdering Facility: [facility] Address: [address] [place] [address] Performed By: #### 5 8410-2 ####[facility]ATORYCLIA [id number] [place] [id number] [facility] Comprehensive metabolic 2000 panelon 10-24-2024 Albumin [Mass/Vol] 3.1 g/dL Low 3.2-5.0 [facility] Comment on above: Order Comment: Speci men Type: BLOOD SPECIMENOrdering Facility: [facility] Address: [address] [place] [address] Performed By: #### 1 9123-9, 96237-4 ####[facility]ATORYCLIA [id number] [place] [address] [place] ALP [Catalytic activity/Vol] 131 U/L High 45-117 [facility] Comment on above: Order Comment: Speci men Type: BLOOD SPECIMENOrdering Facility: [facility] Address: [address] [place] [address] Performed By: #### 1 9123-9, 47393-1 ####[facility]ATORYCLIA [id number] [place] [id number] [place] ALT [Catalytic activity/Vol] 15 U/L Normal 13-61 [facility] Comment on above: Order Comment: Speci men Type: BLOOD SPECIMENOrdering Facility: [facility] Address: [address] [place] [address] Result Comment: Resu lts may be falsely depressed after the administration of Sulfasalazine and/or Sulfapyridine. Performed By: #### 1 9123-9, 18665-3 ####[facility]ATORYCLIA [id number] [place] [id number] [place] Anion gap [Moles/Vol] 10 mmol/L Normal 5-16 [facility] Comment on above: Order Comment: Speci men Type: BLOOD SPECIMENOrdering Facility: [facility] Address: [address] [place] [address] Performed By: #### 1 9123-9, 83531-6 ####[facility]ATORYCLIA [id number] [place] [address] [place] AST [Catalytic activity/Vol] 12 U/L Normal 8-34 [facility] Comment on above: Order Comment: Speci men Type: BLOOD SPECIMENOrdering Facility: [facility] Address: [address] [place] [address] Result Comment: Resu lts may be falsely depressed after the administration of Sulfasalazine and/or Sulfapyridine. Performed By: #### 1 9123-9, 54678-0 ####[facility]ATORYCLIA [id number] [place] [address] [place] Bilirubin [Mass/Vol] 1.2 mg/dL High 0.2-1.0 [facility] Comment on above: Order Comment: Speci men Type: BLOOD SPECIMENOrdering Facility: [facility] Address: [address] [place] [address] Performed By: #### 1 9123-9, 40954-1 ####[facility]ATORYCLIA [id number] [place] [id number] [place] Calcium [Mass/Vol] 9.6 mg/dL Normal 8.5-10.5 [facility] Comment on above: Order Comment: Speci men Type: BLOOD SPECIMENOrdering Facility: [facility] Address: [address] [place] [address] Performed By: #### 1 9123-9, 76392-7 ####[facility]ORYCLIA [id number] [place] [id number] [place] Chloride [Moles/Vol] 92 mmol/L Low 98-107 [facility] Comment on above: Order Comment: Speci men Type: BLOOD SPECIMENOrdering Facility: [facility] Address: [address] [place] [address] Performed By: #### 1 9123-9, 28629-9 ####[facility]ATORYCLIA [id number] [place] [id number] [place] CO2 [Moles/Vol] 31 mmol/L Normal 21-32 [facility] Comment on above: Order Comment: Speci men Type: BLOOD SPECIMENOrdering Facility: [facility] Address: [address] [place] [address] Performed By: #### 1 9123-9, 69855-1 ####[facility]ATORYCLIA [id number] [place] [address] [place] Creatinine [Mass/Vol] 1.04 mg/dL High 0.51-0.95 [facility] Comment on above: Order Comment: Speci men Type: BLOOD SPECIMENOrdering Facility: [facility] Address: [address] [place] [address] Result Comment: Marissa ents receiving either N-Acetylcysteine (NAC) or Metamizole prior to venipuncture, may have falsely depressed results. Performed By: #### 1 9123-9, 87127-1 ####[facility]ORYCLIA [id number] [place] [address] [place] Creatinine and Glomerular filtration rate.predicted panel (S/P/Bld) 69 mL/min/1.73m??? Normal >=60 [facility] Comment on above: Order Comment: Speci men Type: BLOOD SPECIMENOrdering Facility: [facility] Address: [address] [place] [address] Result Comment: Zeny mated Glomerular Filtration Rate [...] actual GFR. Performed By: #### 1 9123-9, 01218-2 ####[facility]ATORYCLIA [id number] [place] [address] [place] Glucose [Mass/Vol] 101 mg/dL High 70-100 [facility] Comment on above: Order Comment: Dora finch Type: BLOOD SPECIMENOrdering Facility: [facility] Address: [address] [place] [address] Result Comment: The [place] Diabetes Association (ADA) provides guidance for cutoff [...] Standards of Medical Care in Diabetes 2016, [place] [employer]. Diabetes Care. 2016.39(Suppl 1). Results may be falsely elevated after the administration of Sulfapyridine. Results may be falsely depressed after the administration of Sulfasalazine. Performed By: #### 1 9123-9, 62985-5 ####[facility]ATORYCLIA [id number] [place] [id number] [place] Potassium [Moles/Vol] 3.4 mmol/L Low 3.5-5.1 [facility] Comment on above: Order Comment: Dora finch Type: BLOOD SPECIMENOrdering Facility: [facility] Address: [address] [place] [address] Performed By: #### 1 9123-9, ####[facility]ATORYCLIA [id number] [place] [id number] [place] Protein [Mass/Vol] 7.5 g/dL Normal 6.0-8.5 [facility] Comment on above: Order Comment: Speci men Type: BLOOD SPECIMENOrdering Facility: [facility] Address: [address] [place] [address] Performed By: #### 1 9123-9, ####[facility]ATORYCLIA [id number] [place] [id number] [place] Sodium [Moles/Vol] 133 mmol/L Low 136-145 [facility] Comment on above: Order Comment: Speci men Type: BLOOD SPECIMENOrdering Facility: [facility] Address: [address] [place] [address] Performed By: #### 1 9123-9, ####[facility]ATORYCLIA [id number] [place] [id number] [place] Urea nitrogen [Mass/Vol] 10 mg/dL Normal 7-26 [facility] Comment on above: Order Comment: Speci men Type: BLOOD SPECIMENOrdering Facility: [facility] Address: [address] [place] [address] Performed By: #### 1 9123-9, ####[facility]ATORYCLIA [id number] [place] [id number] [place] Magnesium SerPl-mCncon 10-24 Magnesium [Mass/Vol] 1.8 mg/dL Normal 1.6-2.6 [facility] Comment on above: Order Comment: Speci men Type: BLOOD SPECIMENOrdering Facility: [facility] Address: [address] [place] [address] Performed By: #### 1 9123-9, 69808-8 ####[facility]ATORYCLIA [id number] [place] [id number] [place] NUTRITIONon 10-24-2024 NUTRITION HNO ID: [id number] Author: LELIA RAMEY RD Service: ? Author [...] needs: 1849 - 2049 Calorie Calculation Method: [place]. Jeor (with activity factor) Estimated protein needs [...] October 24, 2024 TIME: 1:56 PM Normal [facility] CBC panel Auto (Bld)on 10-23 Erythrocyte distribution width (RBC) [Ratio] 14.8 % Normal 11.5-15.0 [facility] Comment on above: Order Comment: Speci men Type: BLOOD SPECIMENOrdering Facility: [facility] Address: [address] [place] [address] Performed By: #### 5 8410-2 ####[facility]ATORYCLIA [id number] [place] [address] [place] Hematocrit (Bld) [Volume fraction] 30.5 % Low 36.0-46.0 [facility] Comment on above: Order Comment: Speci men Type: BLOOD SPECIMENOrdering Facility: [facility] Address: [address] [place] [address] Performed By: #### 5 8410-2 ####[facility]ATORYCLIA [id number] [place] [address] [place] Hemoglobin (Bld) [Mass/Vol] 9.4 g/dL Low 11.5-15.5 [facility] Comment on above: Order Comment: Speci men Type: BLOOD SPECIMENOrdering Facility: [facility] Address: [address] [place] [address] Performed By: #### 5 8410-2 ####[facility]ATORYCLIA [id number] [place] [address] [place] MCH (RBC) [Entitic mass] 24.0 pg Low 26.0-34.0 [facility] Comment on above: Order Comment: Speci men Type: BLOOD SPECIMENOrdering Facility: [facility] Address: [address] [place] [address] Performed By: #### 5 8410-2 ####[facility]ATORYCLIA [id number] [address] [place] MCHC (RBC) [Mass/Vol] 30.8 g/dL Normal 30.5-36.0 [facility] Comment on above: Order Comment: Speci men Type: BLOOD SPECIMENOrdering Facility: [facility] Address: [address] [place] [address] Performed By: #### 5 8410-2 ####[facility]ORATORYCLIA [id number] [address] [place] MCV (RBC) [Entitic vol] 77.8 fL Low 80.0-100.0 [facility] Comment on above: Order Comment: Speci men Type: BLOOD SPECIMENOrdering Facility: [facility] Address: [address] [place] [address] Performed By: #### 5 8410-2 ####[facility]ATORYCLIA [id number] [address] [place] Nucleated RBC (Bld) [#/Vol] 10*3/uL Normal <0.01 [facility] Comment on above: Order Comment: Speci men Type: BLOOD SPECIMENOrdering Facility: [facility] Address: [address] [place] [address] Performed By: #### 5 8410-2 ####[facility]ATORYCLIA [id number] [address] [place] Platelet mean volume (Bld) [Entitic vol] 8.6 fL Low 9.0-12.7 [facility] Comment on above: Order Comment: Speci men Type: BLOOD SPECIMENOrdering Facility: [facility] Address: [address] [place] [address] Performed By: #### 5 8410-2 ####[facility]ORATORYCLIA [id number] [place] [address] [place] Platelets (Bld) [#/Vol] 413 10*3/uL High 150-400 [facility] Comment on above: Order Comment: Speci men Type: BLOOD SPECIMENOrdering Facility: [facility] Address: [address] [place], [place] [address] Performed By: #### 5 8410-2 ####[facility] LABORATORYCLIA [id number] [place] [address] [place] RBC (Bld) [#/Vol] 3.92 10*6/uL Normal 3.90-5.20 [facility] Comment on above: Order Comment: Speci men Type: BLOOD SPECIMENOrdering Facility: [facility] Address: [address] [place], [place] [address] Performed By: #### 5 8410-2 ####[facility] LABORATORYCLIA [id number] [place] [id number] [place] WBC (Bld) [#/Vol] 5.26 10*3/uL Normal 3.70-11.00 [facility] Comment on above: Order Comment: Speci men Type: BLOOD SPECIMENOrdering Facility: [facility] Address: [address] [place], [place] [address] Performed By: #### 5 8410-2 ####[facility] LABORATORYCLIA [id number] [place] [id number] [facility] CONSULTon 10-23-2024 CONSULT HNO ID: [id number] Author: YOHANA MCCARTHY III, DPM Service: Podiatry [...] and polysubstance abuse who originally presented to [facility] with severe abdominal pain and found [...] feet. No x-rays have been done today. Director Of [employer] consult regarding management of bilateral foot gangrene. Originally presented to hospital with persistent stools. She had recent vascular follow-up at the end of August. PAST MEDICAL HISTORY Diagnosis Date Attempted suicide (HCC) polysubstance Bipolar depression (HCC) The [facility] Camelia Whyte Gestational diabetes mellitus in ([facility]) Impaired fasting blood sugar 06/2015 a1c 5.7% [...] Urine Negative 08/30/2024 Nitrites Negative 08/30/2024 Specific [place], Ur 1.016 08/30/2024 Protein, Urine 1+ 08/30/2024 Leukest Negative 08/30/2024 WBC, Urine 0-5 /HPF 08/30/2024 Bacteria Negative 08/30/2024 SED RATE/CRP: Sed Rate, [place]ester[place] 2 02/05/2022 CRP 10.4 09/03/2024 CRP 20.2 08/31/2024 CRP 18.1 (more content not included)... [facility] CONSULT PROGon 10-23-2024 CONSULT PROG HNO ID: [id number] Author: ALOK GIVENS MD Service: Gastroenterology Author [...] primary team -Outpatient GI follow-up, referral line [phone] -Please call with questions, nothing further to add from a GI standpoint at this time GI will sign off at this time. Please don't hesitate to call us back. Please contact on-call GI staff physician with any questions or concerns. SIGNATURE: Rakesh Davis APRN.DIRECTOR OF CLOUD SERVICES DATE: October 23, 2024 TIME: 11:56 AM (Some elements copied from my note, dated 10/22, which have been reviewed and updated where appropriate. All reflect current medical decision making from today, 10/23.) Normal [facility] Comprehensive metabolic 2000 panelon 10-23-2024 Albumin [Mass/Vol] 2.8 g/dL Low 3.2-5.0 [facility] Comment on above: Order Comment: Speci men Type: BLOOD SPECIMENOrdering Facility: [facility] Address: [address] [place] [address] Performed By: #### 1 9123-9, 92812-1 ####[facility] LABORATORYCLIA [id number] [place] [address] [place] ALP [Catalytic activity/Vol] 118 U/L High 45-117 [facility] Comment on above: Order Comment: Speci men Type: BLOOD SPECIMENOrdering Facility: [facility] Address: [address] [place] [id number] Performed By: #### 1 9123-9, 93296-3 ####[facility] LABORATORYCLIA [id number] [address] [place] ALT [Catalytic activity/Vol] 15 U/L Normal 13-61 [facility] Comment on above: Order Comment: Speci men Type: BLOOD SPECIMENOrdering Facility: [facility] Address: [address] [place] [address] Result Comment: Resu lts may be falsely depressed after the administration of Sulfasalazine and/or Sulfapyridine. Performed By: #### 1 9123-9, 13468-2 ####[facility] LABORATORYCLIA [id number] [place] [address] [place] Anion gap [Moles/Vol] 10 mmol/L Normal 5-16 [facility] Comment on above: Order Comment: Speci men Type: BLOOD SPECIMENOrdering Facility: [facility] Address: [address] [place] [place] [address] Performed By: #### 1 9123-9, 02036-5 ####[facility] LABORATORYCLIA [id number] [place] [address] [place] AST [Catalytic activity/Vol] 14 U/L Normal 8-34 [facility] Comment on above: Order Comment: Florii men Type: BLOOD SPECIMENOrdering Facility: [facility] Address: [address] [place] [address] Result Comment: Resu lts may be falsely depressed after the administration of Sulfasalazine and/or Sulfapyridine. Performed By: #### 1 9123-9, 14593-9 ####[facility] LABORATORYCLIA [id number] [place] [address] [place] Bilirubin [Mass/Vol] 0.9 mg/dL Normal 0.2-1.0 [facility] Comment on above: Order Comment: Florii men Type: BLOOD SPECIMENOrdering Facility: [facility] Address: [address] [place] [address] Performed By: #### 1 9123-9, 81880-2 ####[facility] LABORATORYCLIA [id number] [place] [id number] [place] Calcium [Mass/Vol] 9.1 mg/dL Normal 8.5-10.5 [facility] Comment on above: Order Comment: Speci men Type: BLOOD SPECIMENOrdering Facility: [facility] Address: [address] [place] [address] Performed By: #### 1 9123-9, 98546-2 ####[facility] LABORATORYCLIA [id number] [place] [id number] [place] Chloride [Moles/Vol] 98 mmol/L Normal 98-107 [facility] Comment on above: Order Comment: Speci men Type: BLOOD SPECIMENOrdering Facility: [facility] Address: [address] [place] [address] Performed By: #### 1 9123-9, 29318-2 ####[facility] LABORATORYCLIA [id number] [place] [address] [place] CO2 [Moles/Vol] 29 mmol/L Normal 21-32 [facility] Comment on above: Order Comment: Speci men Type: BLOOD SPECIMENOrdering Facility: [facility] Address: [address] [place] [address] Performed By: #### 1 9123-9, 73623-7 ####[facility] LABORATORYCLIA [id number] [address] STATES OF [facility] Creatinine [Mass/Vol] 0.90 mg/dL Normal 0.51-0.95 [facility] Comment on above: Order Comment: Speci men Type: BLOOD SPECIMENOrdering Facility: [facility] Address: [address] [place] [address] Result Comment: Marissa ents receiving either N-Acetylcysteine (NAC) or Metamizole prior to venipuncture, may have falsely depressed results. Performed By: #### 1 9123-9, 57181-4 ####[facility] LABORATORYCLIA [id number] [address] [place] Creatinine and Glomerular filtration rate.predicted panel (S/P/Bld) 83 mL/min/1.73m??? Normal >=60 [facility] Comment on above: Order Comment: Speci men Type: BLOOD SPECIMENOrdering Facility: [facility] Address: [address] [place] [address] Result Comment: Zeny mated Glomerular Filtration Rate [...] actual GFR. Performed By: #### 1 9123-9, 71536-5 ####[facility] LABORATORYCLIA [id number] [place] [address] [place] Glucose [Mass/Vol] 98 mg/dL Normal 70-100 [facility] Comment on above: Order Comment: Speci men Type: BLOOD SPECIMENOrdering Facility: [facility] Address: [address] [place] [address] Result Comment: The [place] Diabetes Association (ADA) provides guidance for cutoff [...] Standards of Medical Care in Diabetes 2016, [place] [employer]. Diabetes Care. 2016.39(Suppl 1). Results may be falsely elevated after the administration of Sulfapyridine. Results may be falsely depressed after the administration of Sulfasalazine. Performed By: #### 1 9123-9, ####[facility] LABORATORYCLIA [id number] [place] [id number] [place] Potassium [Moles/Vol] 3.4 mmol/L Low 3.5-5.1 [facility] Comment on above: Order Comment: Dora finch Type: BLOOD SPECIMENOrdering Facility: [facility] Address: [address] [place] [address] Performed By: #### 1 9123-9, 66007-0 ####[facility] LABORATORYCLIA [id number] [place] [address] [place] Protein [Mass/Vol] 6.9 g/dL Normal 6.0-8.5 [facility] Comment on above: Order Comment: Speci men Type: BLOOD SPECIMENOrdering Facility: [facility] Address: [address] [place] [address] [place] [id number] Performed By: #### 1 9123-9, 84303-4 ####[facility] LABORATORYCLIA [id number] [place] [id number] [place] Sodium [Moles/Vol] 137 mmol/L Normal 136-145 [facility] Comment on above: Order Comment: Speci men Type: BLOOD SPECIMENOrdering Facility: [facility] Address: [address] [place], [place] [address] Performed By: #### 1 9123-9, 16828-3 ####[facility] LABORATORYCLIA [id number] [place] [address] [place] Urea nitrogen [Mass/Vol] 7 mg/dL Normal 7-26 [facility] Comment on above: Order Comment: Speci men Type: BLOOD SPECIMENOrdering Facility: [facility] Address: [address] [place], [place] [address] Performed By: #### 1 9123-9, 01741-7 ####[facility] LABORATORYCLIA [id number] [place] [id number] [place] Magnesium SerPl-mCncon 10-23 Magnesium [Mass/Vol] 1.9 mg/dL Normal 1.6-2.6 [facility] Comment on above: Order Comment: Speci men Type: BLOOD SPECIMENOrdering Facility: [facility] Address: [address] [place] [address] Performed By: #### 1 9123-9, 37835-9 ####[facility] LABORATORYCLIA [id number] [place] [id number] [place] XR FOOT 3V [...] of osteomyelitis. Mild distal soft tissue swelling. Rayon Tester: PSCB Transcribe Date/Time: Oct 23 2024 4:00P Dictated by : HOMA EDMONDSON MD This examination was interpreted and the report reviewed and electronically signed by: HOMA EDMONDSON MD on Oct 23 2024 4:03PM EST [id number] [facility] ALLIED HEALTHon 10-22-2024 ALLIED HEALTH HNO ID: [id number] Author: STEFANY CALVERT RN Service: Wound/Ostomy Author [...] Applied And Attached To Drainage Bag Barrier Ladle Liner Strips Applied To Edges Patient Educated On Need To Watch Drainage Tubing To Ensure Its Draining And Pouch Doesn't Get Too Full And Starts Leaking. Assessment Stoma Type: End-loop jejunostomy Size/Diameter: 38mm Location: LLQ Protrusion: Flush, Retracted, Etc. Mucosal condition and color: [place] Red Moist Mucocutaneous junction: Intact Character of output: Liquid Yellow Brown Emptying frequency per day: per floor nursing Current pouching system: Coloplast 2pc High Output #37639 Pouch attached to drainage bag Coloplast #98742 Flat Wafer Reading #8815 Small Barrier Ring Wear Time Goal: 3-4 days Coloplast 2pc Colostomy Pouch # 80180 Left In Room When Stool Thickens Too Much To Use High Output Bag. If additional ostomy supplies are needed, please call [employer] ([phone]) for above mentioned supplies. If supplies are unavailable in [employer], please secure chat [facility] or call extension [phone] to request more supplies. Normal [facility] CBC panel Auto (Bld)on 10-22 Erythrocyte distribution width (RBC) [Ratio] 14.6 % Normal 11.5-15.0 [facility] Comment on above: Order Comment: Speci men Type: BLOOD SPECIMEN [facility] Address: [address] [place] [id number] Performed By: #### 4 091-5 #### [facility] CLIA [id number] [address] [place] [address] [place] Hematocrit (Bld) [Volume fraction] 28.0 % Low 36.0-46.0 [facility] Comment on above: Order Comment: Speci men Type: BLOOD SPECIMEN [facility] Address: [address] [place] [address] Performed By: #### 4 091-5 #### [facility] CLIA [id number] [address] [place] [address] [place] Hemoglobin (Bld) [Mass/Vol] 8.8 g/dL Low 11.5-15.5 [facility] Comment on above: Order Comment: Speci men Type: BLOOD SPECIMEN [facility] Address: [address] [place] [address] Performed By: #### 4 091-5 #### [facility] CLIA [id number] [address] [place] [address] MCH (RBC) [Entitic mass] 24.6 pg Low 26.0-34.0 [facility] Comment on above: Order Comment: Speci men Type: BLOOD SPECIMEN [facility] Address: [address] [place] [address] Performed By: #### 4 091-5 #### [facility] CLIA [id number] [address] [place] [address] MCHC (RBC) [Mass/Vol] 31.4 g/dL Normal 30.5-36.0 [facility] Comment on above: Order Comment: Speci men Type: BLOOD SPECIMEN [facility] Address: [address] [place] [address] Performed By: #### 4 091-5 #### [facility] CLIA [id number] [address] [place] [address] [place] MCV (RBC) [Entitic vol] 78.4 fL Low 80.0-100.0 [facility] Comment on above: Order Comment: Speci men Type: BLOOD SPECIMEN [facility] Address: [address] [place] [address] Performed By: #### 4 091-5 #### [facility] CLIA [id number] [address] [place] [address] Nucleated RBC (Bld) [#/Vol] 10*3/uL Normal <0.01 [facility] Comment on above: Order Comment: Speci men Type: BLOOD SPECIMEN [facility] Address: [address] [place] [address] Performed By: #### 4 091-5 #### [facility] CLIA [id number] [address] [place] [address] [place] Platelet mean volume (Bld) [Entitic vol] 8.7 fL Low 9.0-12.7 [facility] Comment on above: Order Comment: Speci men Type: BLOOD SPECIMEN [facility] Address: [address] [place] [address] Performed By: #### 4 091-5 #### [facility] CLIA [id number] [address] [place] [address] [place] Platelets (Bld) [#/Vol] 396 10*3/uL Normal 150-400 [facility] Comment on above: Order Comment: Speci men Type: BLOOD SPECIMEN [facility] Address: [address] [place] [address] Performed By: #### 4 091-5 #### [facility] CLIA [id number] [address] [place] [address] [place] RBC (Bld) [#/Vol] 3.57 10*6/uL Low 3.90-5.20 [facility] Comment on above: Order Comment: Speci men Type: BLOOD SPECIMEN [facility] Address: [address] [place] [address] Performed By: #### 4 091-5 #### [facility] CLIA [id number] [address] [place] [address] [place] WBC (Bld) [#/Vol] 5.87 10*3/uL Normal 3.70-11.00 [facility] Comment on above: Order Comment: Speci men Type: BLOOD SPECIMEN [facility] Address: [address] [place] [address] Performed By: #### 4 091-5 #### [facility] CLIA [id number] [address] [place] [address] OF [facility] CONSULT PROGon 10-22-2024 CONSULT PROG HNO ID: [id number] Author: TUNG JENNINGS MD Service: Gastroenterology Author [...] medical decision making from today, 10/22.) Normal [facility] Comprehensive metabolic 2000 panelon 10-22-2024 Albumin [Mass/Vol] 2.6 g/dL Low 3.2-5.0 [facility] Comment on above: Order Comment: Speci men Type: BLOOD SPECIMEN [facility] Address: [address] [place] [address] Performed By: #### 4 091-5 #### [facility] CLIA [id number] [address] [place] [address] [place] ALP [Catalytic activity/Vol] 110 U/L Normal 45-117 [facility] Comment on above: Order Comment: Speci men Type: BLOOD SPECIMEN [facility] Address: [address] [place] [address] Performed By: #### 4 091-5 #### [facility] CLIA [id number] [address] [place] [address] [place] ALT [Catalytic activity/Vol] 15 U/L Normal 13-61 [facility] Comment on above: Order Comment: Speci men Type: BLOOD SPECIMEN [facility] Address: [address] [place] [address] Result Comment: Resu lts may be falsely depressed after the administration of Sulfasalazine and/or Sulfapyridine. Performed By: #### 4 091-5 #### [facility] CLIA [id number] [address] [place] [address] [place] Anion gap [Moles/Vol] 8 mmol/L Normal 5-16 [facility] Comment on above: Order Comment: Speci men Type: BLOOD SPECIMEN [facility] Address: [address] [place] [address] Performed By: #### 4 091-5 #### [facility] CLIA [id number] [address] [place] [address] [place] AST [Catalytic activity/Vol] 14 U/L Normal 8-34 [facility] Comment on above: Order Comment: Speci men Type: BLOOD SPECIMEN [facility] Address: [address] [place] [address] Result Comment: Resu lts may be falsely depressed after the administration of Sulfasalazine and/or Sulfapyridine. Performed By: #### 4 091-5 #### [facility] CLIA [id number] [address] [place] [address] [place] Bilirubin [Mass/Vol] 0.9 mg/dL Normal 0.2-1.0 [facility] Comment on above: Order Comment: Speci men Type: BLOOD SPECIMEN [facility] Address: [address] [place] [address] Performed By: #### 4 091-5 #### [facility] CLIA [id number] [address] [place] [address] [place] Calcium [Mass/Vol] 8.9 mg/dL Normal 8.5-10.5 [facility] Comment on above: Order Comment: Speci men Type: BLOOD SPECIMEN [facility] Address: [address] [place] [address] Performed By: #### 4 091-5 #### [facility] CLIA [id number] [address] [place] [address] [place] Chloride [Moles/Vol] 98 mmol/L Normal 98-107 [facility] Comment on above: Order Comment: Speci men Type: BLOOD SPECIMEN [facility] Address: [address] [place] [address] Performed By: #### 4 091-5 #### [facility] CLIA [id number] [address] [place] [address] [place] CO2 [Moles/Vol] 30 mmol/L Normal 21-32 [facility] Comment on above: Order Comment: Speci men Type: BLOOD SPECIMEN [facility] Address: [address] [place] [address] Performed By: #### 4 091-5 #### [facility] CLIA [id number] [address] [place] [address] [place] Creatinine [Mass/Vol] 0.95 mg/dL Normal 0.51-0.95 [facility] Comment on above: Order Comment: Dora finch Type: BLOOD SPECIMEN [facility] Address: [address] [place] [address] Result Comment: Marissa ents receiving either N-Acetylcysteine (NAC) or Metamizole prior to venipuncture, may have falsely depressed results. Performed By: #### 4 091-5 #### [facility] CLIA [id number] [address] [place] [address] [place] [facility] [place] Creatinine and Glomerular filtration rate.predicted panel (S/P/Bld) 77 mL/min/1.73m??? Normal >=60 [facility] Comment on above: Order Comment: Dora finch Type: BLOOD SPECIMEN [facility] Address: [address] [place] [address] Result Comment: Zeny mated Glomerular Filtration Rate [...] GFR. Performed By: #### 4 091-5 #### [facility] CLIA [id number] [address] [place] [address] [place] Glucose [Mass/Vol] 83 mg/dL Normal 70-100 [facility] Comment on above: Order Comment: Dora finch Type: BLOOD SPECIMEN [facility] Address: [address] [place] [address] Result Comment: The [place] Diabetes Association (ADA) provides guidance for cutoff [...] Standards of Medical Care in Diabetes 2016, [place] [employer]. Diabetes Care. 2016.39(Suppl 1). Results may be falsely elevated after the administration of Sulfapyridine. Results may be falsely depressed after the administration of Sulfasalazine. Performed By: #### 4 091-5 #### [facility] CLIA [id number] [address] [place] [address] [place] Potassium [Moles/Vol] 3.2 mmol/L Low 3.5-5.1 [facility] Comment on above: Order Comment: Dora finch Type: BLOOD SPECIMEN [facility] Address: [address] [place] [address] Performed By: #### 4 091-5 #### [facility] CLIA [id number] [address] [place] [address] [place] Protein [Mass/Vol] 6.4 g/dL Normal 6.0-8.5 [facility] Comment on above: Order Comment: Dora finch Type: BLOOD SPECIMEN [facility] Address: [address] [place] [address] Performed By: #### 4 091-5 #### [facility] CLIA [id number] [address] [place] [address] [place] Sodium [Moles/Vol] 136 mmol/L Normal 136-145 [facility] Comment on above: Order Comment: Dora finch Type: BLOOD SPECIMEN [facility] Address: [address] [place] [address] Performed By: #### 4 091-5 #### [facility] CLIA [id number] [address] [place] [address] [place] Urea nitrogen [Mass/Vol] 9 mg/dL Normal 7-26 [facility] Comment on above: Order Comment: Dora finch Type: BLOOD SPECIMEN [facility] Address: [address] [place] [address] Performed By: #### 4 091-5 #### [facility] CLIA [id number] [address] [place] [address] [place] Gastrointestinal pathogens p bowen LAUREANO+probe (Stl)on 10-22-2024 ADENOVIRUS F 40/41 DNA Not detected Normal Not Detected [facility] Comment on above: Order Comment: Speci men Type: STOOL SPECIMENOrdering Facility: [facility] Address: [address] [place] [address] Performed By: #### 7 9381-0 ####[facility] LABORATORYCLIA [id number] [place] [address] [place] ASTROVIRUS RNA Not detected Normal Not Detected [facility] Comment on above: Order Comment: Speci men Type: STOOL SPECIMENOrdering Facility: [facility] Address: [address] [place] [address] Performed By: #### 7 9381-0 ####[facility] LABORATORYCLIA [id number] [place] [address] [place] C. cayetanensis DNA LAUREANO+probe Ql (Unsp spec) Not detected Normal Not Detected [facility] Comment on above: Order Comment: Speci men Type: STOOL SPECIMENOrdering Facility: [facility] Address: [address] [place] [address] Performed By: #### 7 9381-0 ####[facility] LABORATORYCLIA [id number] [place] [address] [place] Campylobacter sp DNA.diarrheagenic LAUREANO+probe Ql (Stl) Not detected Normal Not Detected [facility] Comment on above: Order Comment: Speci men Type: STOOL SPECIMENOrdering Facility: [facility] Address: [address] [place] [address] Performed By: #### 7 9381-0 ####[facility] LABORATORYCLIA [id number] [place] [address] [place] Cryptosporidium sp DNA LAUREANO+probe Ql (Unsp spec) Not detected Normal Not Detected [facility] Comment on above: Order Comment: Speci men Type: STOOL SPECIMENOrdering Facility: [facility] Address: [address] [place] [address] Performed By: #### 7 9381-0 ####[facility] LABORATORYCLIA [id number] [address] E. coli O157:H7 DNA LAUREANO+probe Ql (Unsp spec) Not applicable Normal Not detected [facility] Comment on above: Order Comment: Speci men Type: STOOL SPECIMENOrdering Facility: [facility] Address: [address] [place] [address] Performed By: #### 7 9381-0 ####[facility] LABORATORYCLIA [id number] [address] E. coli stx1+stx2 genes LAUREANO+probe Ql (Stl) Not detected Normal Not Detected [facility] Comment on above: Order Comment: Speci men Type: STOOL SPECIMENOrdering Facility: [facility] Address: [address] [place] [address] Performed By: #### 7 9381-0 ####[facility] LABORATORYCLIA [id number] [address] E. histolytica DNA LAUREANO+probe Ql (Unsp spec) Not detected Normal Not Detected [facility] Comment on above: Order Comment: Speci men Type: STOOL SPECIMENOrdering Facility: [facility] Address: [address] [place] [address] Performed By: #### 7 9381-0 ####[facility] LABORATORYCLIA [id number] [address] ENTEROAGGREGATIVE E. COLI (EAEC) DNA Not detected Normal Not Detected [facility] Comment on above: Order Comment: Speci men Type: STOOL SPECIMENOrdering Facility: [facility] Address: [address] [place] [address] Performed By: #### 7 9381-0 ####[facility] LABORATORYCLIA [id number] [address] [place] ENTEROPATHOGENIC E. COLI (EPEC) DNA Not detected Normal Not detected [facility] Comment on above: Order Comment: Speci men Type: STOOL SPECIMENOrdering Facility: [facility] Address: [address] [place] [address] Performed By: #### 7 9381-0 ####[facility] LABORATORYCLIA [id number] [place] [address] [place] ENTEROTOXIGENIC E. COLI (ETEC) DNA Not detected Normal Not Detected [facility] Comment on above: Order Comment: Speci men Type: STOOL SPECIMENOrdering Facility: [facility] Address: [address] [place] [address] Performed By: #### 7 9381-0 ####[facility] LABORATORYCLIA [id number] [place] [address] [place] G. lamblia DNA LAUREANO+probe Ql (Unsp spec) Not detected Normal Not Detected [facility] Comment on above: Order Comment: Speci men Type: STOOL SPECIMENOrdering Facility: [facility] Address: [address] [place] [address] Performed By: #### 7 9381-0 ####[facility] LABORATORYCLIA [id number] [place] [address] [place] NOROVIRUS GI/GII RNA Not detected Normal Not Detected [facility] Comment on above: Order Comment: Speci men Type: STOOL SPECIMENOrdering Facility: [facility] Address: [address] [place] [address] Performed By: #### 7 9381-0 ####[facility] LABORATORYCLIA [id number] [place] [address] [place] PLESIOMONAS SHIGELLOIDES DNA Not detected Normal Not Detected [facility] Comment on above: Order Comment: Speci [facility] Type: STOOL SPECIMENOrdering Facility: [facility] Address: [address] [place] [address] Performed By: #### 7 9381-0 ####[facility] LABORATORYCLIA [id number] [place] [address] [place] ROTAVIRUS A RNA Not detected Normal Not Detected [facility] Comment on above: Order Comment: Speci men Type: STOOL SPECIMENOrdering Facility: [facility] Address: [address] [place] [address] Performed By: #### 7 9381-0 ####[facility] LABORATORYCLIA [id number] [place] [address] [place] Salmonella sp DNA LAUREANO+probe Ql (Unsp spec) Not detected Normal Not Detected [facility] Comment on above: Order Comment: Speci men Type: STOOL SPECIMENOrdering Facility: [facility] Address: [address] [place] [address] Performed By: #### 7 9381-0 ####[facility] LABORATORYCLIA [id number] [address] [place] SAPOVIRUS (GENOGROUPS I, II, IV, V) RNA Not detected Normal Not Detected [facility] Comment on above: Order Comment: Speci men Type: STOOL SPECIMENOrdering Facility: [facility] Address: [address] [place] [address] Performed By: #### 7 9381-0 ####[facility] LABORATORYCLIA [id number] [address] [place] Shigella species+EIEC invasion plasmid antigen H ipaH gene LAUREANO+probe Ql (Stl) Not detected Normal Not Detected [facility] Comment on above: Order Comment: Speci men Type: STOOL SPECIMENOrdering Facility: [facility] Address: [address] [place] [address] Performed By: #### 7 9381-0 ####[facility] LABORATORYCLIA [id number] [place] [address] [place] V. cholerae DNA LAUREANO+probe Ql (Unsp spec) Not detected Normal Not Detected [facility] Comment on above: Order Comment: Speci men Type: STOOL SPECIMENOrdering Facility: [facility] Address: [address] [place] [address] Performed By: #### 7 9381-0 ####[facility] LABORATORYCLIA [id number] [address] [place] Vibrio sp DNA LAUREANO+probe Nom (Unsp spec) Not detected Normal Not Detected [facility] Comment on above: Order Comment: Speci men Type: STOOL SPECIMENOrdering Facility: [facility] Address: [address] [place] [address] Performed By: #### 7 9381-0 ####[facility] LABORATORYCLIA [id number] [address] Yersinia sp DNA LAUREANO+probe Nom (Unsp spec) Not detected Normal Not Detected [facility] Comment on above: Order Comment: Speci men Type: STOOL SPECIMENOrdering Facility: [facility] Address: [address] [place] [address] Performed By: #### 7 9381-0 ####[facility] LABORATORYCLIA [id number] [address] [place] Magnesium SerPl-mCncon 10-22 Magnesium [Mass/Vol] 1.3 mg/dL Low 1.6-2.6 [facility] Comment on above: Order Comment: Speci men Type: BLOOD SPECIMEN [facility] Address: [address] [place] [address] Performed By: #### 4 091-5 #### [facility] CLIA [id number] [address] [place] [address] C diff Tox gens Stl Ql LAUREANO+p robeon 10-21-2024 C. difficile toxin genes LAUREANO+probe Ql (Stl) Negative Normal Negative for C. difficile toxin by PCR [facility] Comment on above: Order Comment: Speci men Type: BLOOD SPECIMEN [facility] Address: [address] [place] [address] Performed By: #### 4 091-5 #### [facility] CLIA [id number] [address] [place] [address] [place] CBC panel Auto (Bld)on 10-21 Erythrocyte distribution width (RBC) [Ratio] 14.6 % Normal 11.5-15.0 [facility] Comment on above: Order Comment: Speci men Type: BLOOD SPECIMEN [facility] Address: [address] [place] [address] Performed By: #### 4 091-5 #### [facility] CLIA [id number] [address] [place] [address] [facility] [place] Hematocrit (Bld) [Volume fraction] 31.0 % Low 36.0-46.0 [facility] Comment on above: Order Comment: Speci men Type: BLOOD SPECIMEN [facility] Address: [address] [place] [address] Performed By: #### 4 091-5 #### [facility] CLIA [id number] [address] [place] [address] [place] Hemoglobin (Bld) [Mass/Vol] 9.3 g/dL Low 11.5-15.5 [facility] Comment on above: Order Comment: Speci men Type: BLOOD SPECIMEN [facility] Address: [address] [place] [address] Performed By: #### 4 091-5 #### [facility] CLIA [id number] [address] [place] [address] [place] MCH (RBC) [Entitic mass] 24.1 pg Low 26.0-34.0 [facility] Comment on above: Order Comment: Speci men Type: BLOOD SPECIMEN [facility] Address: [address] [place] [address] Performed By: #### 4 091-5 #### [facility] CLIA [id number] [address] [place] [address] [place] MCHC (RBC) [Mass/Vol] 30.0 g/dL Low 30.5-36.0 [facility] Comment on above: Order Comment: Speci men Type: BLOOD SPECIMEN [facility] Address: [address] [place] [address] Performed By: #### 4 091-5 #### [facility] CLIA [id number] [address] [place] [address] [place] MCV (RBC) [Entitic vol] 80.3 fL Normal 80.0-100.0 [facility] Comment on above: Order Comment: Speci men Type: BLOOD SPECIMEN [facility] Address: [address] [place] [address] Performed By: #### 4 091-5 #### [facility] CLIA [id number] [address] [place] [address] [place] Nucleated RBC (Bld) [#/Vol] 10*3/uL Normal <0.01 [facility] Comment on above: Order Comment: Speci men Type: BLOOD SPECIMEN [facility] Address: [address] [place] [address] Performed By: #### 4 091-5 #### [facility] CLIA [id number] [address] [place] [address] [place] Platelet mean volume (Bld) [Entitic vol] 8.9 fL Low 9.0-12.7 [facility] Comment on above: Order Comment: Speci men Type: BLOOD SPECIMEN [facility] Address: [address] [place] [address] Performed By: #### 4 091-5 #### [facility] CLIA [id number] [address] [place] [address] [place] Platelets (Bld) [#/Vol] 441 10*3/uL High 150-400 [facility] Comment on above: Order Comment: Speci men Type: BLOOD SPECIMEN [facility] Address: [address] [place] [address] Performed By: #### 4 091-5 #### [facility] CLIA [id number] [address] [place] [address] [place] RBC (Bld) [#/Vol] 3.86 10*6/uL Low 3.90-5.20 [facility] Comment on above: Order Comment: Speci men Type: BLOOD SPECIMEN [facility] Address: [address] [place] [address] Performed By: #### 4 091-5 #### [facility] CLIA [id number] [address] [place] [address] WBC (Bld) [#/Vol] 5.24 10*3/uL Normal 3.70-11.00 [facility] Comment on above: Order Comment: Speci men Type: BLOOD SPECIMEN [facility] Address: [address] [place] [address] Performed By: #### 4 091-5 #### [facility] CLIA [id number] [address] [place] [address] OF [facility] Comprehensive metabolic 2000 panelon 10-21-2024 Albumin [Mass/Vol] 2.8 g/dL Low 3.2-5.0 [facility] Comment on above: Order Comment: Speci men Type: BLOOD SPECIMEN [facility] Address: [address] [place] [address] Performed By: #### 4 091-5 #### [facility] CLIA [id number] [address] [place] [address] [place] ALP [Catalytic activity/Vol] 117 U/L Normal 45-117 [facility] Comment on above: Order Comment: Speci men Type: BLOOD SPECIMEN [facility] Address: [address] [place] [address] Performed By: #### 4 091-5 #### [facility] CLIA [id number] [address] [place] [address] [place] ALT [Catalytic activity/Vol] 19 U/L Normal 13-61 [facility] Comment on above: Order Comment: Speci men Type: BLOOD SPECIMEN [facility] Address: [address] [place] [address] Result Comment: Resu lts may be falsely depressed after the administration of Sulfasalazine and/or Sulfapyridine. Performed By: #### 4 091-5 #### [facility] CLIA [id number] [address] [place], [place] [address] [place] Anion gap [Moles/Vol] 9 mmol/L Normal 5-16 [facility] Comment on above: Order Comment: Speci men Type: BLOOD SPECIMEN [facility] Address: [address] [place] [address] Performed By: #### 4 091-5 #### [facility] CLIA [id number] [address] [place] [address] [place] AST [Catalytic activity/Vol] 13 U/L Normal 8-34 [facility] Comment on above: Order Comment: Speci men Type: BLOOD SPECIMEN [facility] Address: [address] [place] [address] Result Comment: Resu lts may be falsely depressed after the administration of Sulfasalazine and/or Sulfapyridine. Performed By: #### 4 091-5 #### [facility] CLIA [id number] [address] [place] [address] [place] Bilirubin [Mass/Vol] 0.9 mg/dL Normal 0.2-1.0 [facility] Comment on above: Order Comment: Speci men Type: BLOOD SPECIMEN [facility] Address: [address] [place] [address] Performed By: #### 4 091-5 #### [facility] CLIA [id number] [address] [place] [address] [place] Calcium [Mass/Vol] 9.1 mg/dL Normal 8.5-10.5 [facility] Comment on above: Order Comment: Speci men Type: BLOOD SPECIMEN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 DISEASE EDUCATION PROGRAM(NKDE), A NORMAL eGFR IS A VALUE GREATER THAN OR EQUAL TO 60 ML/MIN/1.73 SQ METERS. CHRONIC KIDNEY DISEASE: <60mL/MIN/1.73 SQ METERS KIDNEY FAILURE: <15mL/MIN/1.73 SQ METERS THIS TEST SHOULD ONLY BE USED FOR PATIENTS 18 YEARS OF AGE AND OLDER. Performed By: #### 2 13901 ####[facility],[address] [place] [address] 94711 Globulin (S) [Mass/Vol] 6.0 g/dL High 1.5 - 3.8 [facility] Comment on above: Performed By: #### 2 54972 ####[facility],[address] [place] [address] 49542 Glucose [Mass/Vol] 146 mg/dL High 74 - 106 [facility] Comment on above: Performed By: #### 2 97594 ####[facility],[address] [place] [address] 92374 Potassium [Moles/Vol] 3.3 mmol/L Low 3.5 - 5.1 [facility] Comment on above: Performed By: #### 2 23117 ####[facility],[address] [place] [address] 08518 Protein [Mass/Vol] 9.5 g/dL High 6.4 - 8.2 [facility] Comment on above: Performed By: #### 2 65137 ####[facility],[address] [place] [address] 84459 Sodium [Moles/Vol] 130 mmol/L Low 136 - 145 [facility] Comment on above: Performed By: #### 2 32684 ####[facility],[address] [place] [address] 89005 Urea nitrogen [Mass/Vol] 21 mg/dL High 7 - 18 [facility] Comment on above: Performed By: #### 2 89690 ####[facility],[address] [place] [address] 39537 HISTORY PHYSICALon HISTORY PHYSICAL HNO ID: [id number] Author: MICHAEL ELLIS MD Service: Hospital Medicine Author Type: Physician Type: H&P Filed: 10/19/2024 23:29 Note Text: HISTORY AND PHYSICAL EXAMINATION PATIENT NAME: Daly Evans SERVICE DATE AND TIME: 10/19/2024 11:22 PM PRIMARY CARE PHYSICIAN: Fredrick Boland DO CHIEF COMPLAINT: Persistent stools since having ileostomy placed at [facility] HPI: The patient is a 39-year-old female with a past medical history of bipolar disorder, generalized anxiety/panic disorder, iron deficiency anemia, vitamin D deficiency, tobacco abuse, polysubstance abuse with a history of suicide attempt and presented to [facility] 08/20/2024 with severe abdominal pain and [...] jejunostomy and closure open abdomen 08/22/2024 at [facility] during that stay developed a DVT and was placed on Lovenox, presently in a correction facility who continues to have frequent recurring diarrhea. She was on TPN through a PICC line until 2 weeks ago. Due to her persistent diarrhea she was sent to the outside ER. The outside ER contacted her surgeon at the [facility] who felt patient could safely be [...] Patient quit (more content not included)... Normal [facility] MAGNESIUMon 10-19-2024 Magnesium [Mass/Vol] 1.9 mg/dL Normal 1.8 - 2.4 [facility] Comment on above: Performed By: #### 2 59869 #### [facility],[address] [place] [address] TROPONINon 10-19-2024 HS TROPONIN 4.1 pg/mL Normal 0.0 - 51.4 [facility] Comment on above: Performed By: #### 2 31213 #### [facility],[address] [place] [address] BMP with eGFRon 10-16-2024 AGE 39 years Normal [facility] Comment on above: Performed By: #### 2 35753 #### [facility],[address] [place] [address] 98798 Anion gap [Moles/Vol] 14 mmol/L Normal 10 - 20 [facility] Comment on above: Performed By: #### 2 50097 #### [facility],[address] [place] [address] 88224 BMP with eGFR Normal [facility] Comment on above: Result Comment: BASI C METABOLIC PANEL Performed By: #### 2 13314 #### [facility],[address] [place] [address] 76485 Calcium [Mass/Vol] 8.7 mg/dL Normal 8.5 - 10.1 [facility] Comment on above: Performed By: #### 2 09568 #### [facility],[address] [place] [address] 73831 Chloride [Moles/Vol] 99 mmol/L Normal 98 - 107 [facility] Comment on above: Performed By: #### 2 29633 #### [facility],[address] [place] [address] 33173 CO2 [Moles/Vol] 24.5 mmol/L Normal 21.0 - 32.0 [facility] Comment on above: Performed By: #### 2 59817 #### [facility],[address] [place] [address] 28870 Creatinine [Mass/Vol] 1.16 mg/dL High 0.55 - 1.02 [facility] Comment on above: Performed By: #### 2 81227 #### [facility],[address] [place] [address] 02201 eGFR 51 ML/MINUTE Low 60 - 999 [facility] Comment on above: Performed By: #### 2 27130 #### [facility],[address] [place] [address] 69880 GFR/1.73 sq M.predicted among non-blacks MDRD (S/P/Bld) [Vol rate/Area] mL/min/{1.73_m2} Normal 60 - 999 [facility] Comment on above: Result Comment: ACCO RDING TO THE NATIONAL KIDNEY DISEASE EDUCATION PROGRAM(NKDE), A NORMAL eGFR IS A VALUE GREATER THAN OR EQUAL TO 60 ML/MIN/1.73 SQ METERS. CHRONIC KIDNEY DISEASE: <60mL/MIN/1.73 SQ METERS KIDNEY FAILURE: <15mL/MIN/1.73 SQ METERS THIS TEST SHOULD ONLY BE USED FOR PATIENTS 18 YEARS OF AGE AND OLDER. Performed By: #### 2 70356 #### [facility],[address] [place] [address] 85060 Glucose [Mass/Vol] 97 mg/dL Normal 74 - 106 [facility] Comment on above: Performed By: #### 2 86011 #### [facility],[address] [place] [address] 17404 Potassium [Moles/Vol] 3.2 mmol/L Low 3.5 - 5.1 [facility] Comment on above: Performed By: #### 2 03836 #### [facility],[address] [place] [address] 29927 Sodium [Moles/Vol] 134 mmol/L Low 136 - 145 [facility] Comment on above: Performed By: #### 2 40769 #### [facility],[address] [place] [address] 92946 Urea nitrogen [Mass/Vol] 22 mg/dL High 7 - 18 [facility] Comment on above: Performed By: #### 2 52693 #### [facility],[address] [place] [address] 98833 CBC + DIFFon 10-16-2024 Baso # 0.02 x10EE3/UL Normal 0.00 - 0.10 [facility] Comment on above: Performed By: #### 2 52211 #### [facility],[address] [place] [address] 75388 Basophils/100 WBC (Bld) 0.4 % Normal 0.0 - 2.0 [facility] Comment on above: Performed By: #### 2 04317 #### [facility],[address] [place] [address] 78369 CBC + DIFF Normal [facility] Comment on above: Result Comment: CBC- COMPLETE BLOOD COUNT Performed By: #### 2 32556 #### [facility],[address] [place] [address] 89762 EO # 0.15 x10EE3/UL Normal 0.00 - 0.50 [facility] Comment on above: Performed By: #### 2 64164 #### [facility],[address] [place] [address] 37159 Eosinophils/100 WBC (Bld) 2.3 % Normal 0.0 - 7.0 [facility] Comment on above: Performed By: #### 2 19526 #### [place] [address] Erythrocyte distribution width (RBC) [Ratio] 16.1 % High 12.0 - 15.6 [facility] Comment on above: Performed By: #### 2 69924 #### [facility],[address] [place], [place] [address] Hematocrit (Bld) [Volume fraction] 31.0 % Low 34.0 - 46.0 [facility] Comment on above: Performed By: #### 2 46131 #### [facility],[address] [place] [address] 44924 Hemoglobin (Bld) [Mass/Vol] 10.3 g/dL Low 12.0 - 16.0 [facility] Comment on above: Performed By: #### 2 71116 #### [address] [address] Lymph # 2.20 x10EE3/UL Normal 0.80 - 2.80 [facility] Comment on above: Performed By: #### 2 63647 #### [facility],[address] [place] [address] 17297 Lymphocytes/100 WBC (Bld) 33.9 % Normal 20.0 - 45.0 [facility] Comment on above: Performed By: #### 2 59945 #### [facility],[address] [place] [address] MANUAL DIFF N/A Normal [facility] Comment on above: Performed By: #### 2 25239 #### [facility],[address] [place] [address] MCH (RBC) [Entitic mass] 24 pg Low 27 - 33 [facility] Comment on above: Performed By: #### 2 66665 #### [facility],[address] [place] [address] MCHC 33 X10 3 Normal 32 - 36 [facility] Comment on above: Performed By: #### 2 86567 #### [facility],[address] [place] [address] MCV (RBC) [Entitic vol] 73 fL Low 80 - 99 [facility] Comment on above: Performed By: #### 2 10434 #### [facility],[address] [place] [address] [place] # 0.66 x10EE3/UL Normal 0.20 - 1.00 [facility] Comment on above: Performed By: #### 2 15360 #### [facility],[address] [place] [address] MONOS % 10.2 % High 0.0 - 10.0 [facility] Comment on above: Performed By: #### 2 26303 #### [facility],[address] [place], [place] [address] Morphology Stan (Bld) [Interp] N/A Normal [facility] Comment on above: Performed By: #### 2 06108 #### [facility],[address] [place] [address] Neut # 3.46 x10EE3/UL Normal 1.50 - 7.10 [facility] Comment on above: Performed By: #### 2 33044 #### [facility],[address] [place] [address] 94995 Neutrophils/100 WBC (Bld) 53.3 % Normal 46.0 - 76.0 [facility] Comment on above: Performed By: #### 2 07066 #### [facility],[address] [place] [address] 65236 PLATELET 516 x10EE3/UL High 150 - 450 [facility] Comment on above: Performed By: #### 2 66641 #### [facility],[address] [place] [address] 94928 Platelet mean volume (Bld) [Entitic vol] 7.2 fL Normal 6.6 - 10.5 [facility] Comment on above: Result Comment: AUTO MATED DIFFERENTIAL Performed By: #### 2 56611 #### [facility],[address] [place] [address] 00355 RBC 4.23 x 10EE6/UL Normal 4.10 - 5.30 [facility] Comment on above: Performed By: #### 2 83525 #### [facility],[address] [place] [address] 62487 WBC 6.5 x 10EE3/UL Normal 4.5 - 10.8 [facility] Comment on above: Performed By: #### 2 73904 #### [facility],[address] [place] [address] 24733 CBC + DIFFon 10-15-2024 Baso # 0.04 x10EE3/UL Normal 0.00 - 0.10 [facility] Comment on above: Performed By: #### 2 39252 #### [facility],[address] [place] [address] 47098 Basophils/100 WBC (Bld) 0.5 % Normal 0.0 - 2.0 [facility] Comment on above: Performed By: #### 2 96639 #### [facility],[address] [place] [address] 77183 CBC + DIFF Normal [facility] Comment on above: Result Comment: CBC- COMPLETE BLOOD COUNT Performed By: #### 2 13660 #### [facility],[address] [place] [address] 38703 EO # 0.15 x10EE3/UL Normal 0.00 - 0.50 [facility] Comment on above: Performed By: #### 2 31230 #### [facility],[address] [place] [address] 60866 Eosinophils/100 WBC (Bld) 1.9 % Normal 0.0 - 7.0 [facility] Comment on above: Performed By: #### 2 10105 #### [address] [address] Erythrocyte distribution width (RBC) [Ratio] 16.6 % High 12.0 - 15.6 [facility] Comment on above: Performed By: #### 2 62102 #### [facility],[address] [place] [address] 20226 Hematocrit (Bld) [Volume fraction] 36.9 % Normal 34.0 - 46.0 [facility] Comment on above: Performed By: #### 2 28604 #### [facility],[address] [place] [address] 17508 Hemoglobin (Bld) [Mass/Vol] 12.3 g/dL Normal 12.0 - 16.0 [facility] Comment on above: Result Comment: TEST REPEATED Performed By: #### 2 37767 #### [address] [address] Lymph # 2.93 x10EE3/UL High 0.80 - 2.80 [facility] Comment on above: Performed By: #### 2 45329 #### [facility],[address] [place] [address] 16923 Lymphocytes/100 WBC (Bld) 37.1 % Normal 20.0 - 45.0 [facility] Comment on above: Performed By: #### 2 17244 #### [facility],[address] [place] [address] MANUAL DIFF N/A Normal [facility] Comment on above: Performed By: #### 2 08788 #### [facility],[address] [place] [address] MCH (RBC) [Entitic mass] 25 pg Low 27 - 33 [facility] Comment on above: Performed By: #### 2 15644 #### [place] [address] MCHC 33 X10 3 Normal 32 - 36 [facility] Comment on above: Performed By: #### 2 89685 #### [facility],[address] [place] [address] MCV (RBC) [Entitic vol] 75 fL Low 80 - 99 [facility] Comment on above: Performed By: #### 2 84647 #### [facility],[address] [place] [address] [place] # 0.58 x10EE3/UL Normal 0.20 - 1.00 [facility] Comment on above: Performed By: #### 2 68918 #### [facility],[address] [place] [address] MONOS % 7.3 % Normal 0.0 - 10.0 [facility] Comment on above: Performed By: #### 2 36560 #### [facility],[address] [place] [address] Morphology Stan (Bld) [Interp] N/A Normal [facility] Comment on above: Performed By: #### 2 89760 #### [place] [address] Neut # 4.21 x10EE3/UL Normal 1.50 - 7.10 [facility] Comment on above: Performed By: #### 2 78076 #### [facility],[address] [place] [address] 88673 Neutrophils/100 WBC (Bld) 53.3 % Normal 46.0 - 76.0 [facility] Comment on above: Performed By: #### 2 59293 #### [facility],[address] [place] [address] 05734 PLATELET 562 x10EE3/UL High 150 - 450 [facility] Comment on above: Performed By: #### 2 22612 #### [facility],[address] [place] [address] 24783 Platelet mean volume (Bld) [Entitic vol] 8.2 fL Normal 6.6 - 10.5 [facility] Comment on above: Result Comment: AUTO MATED DIFFERENTIAL Performed By: #### 2 56662 #### [facility],[address] [place] [address] 51616 RBC 4.92 x 10EE6/UL Normal 4.10 - 5.30 [facility] Comment on above: Performed By: #### 2 13190 #### [facility],[address] [place] [address] 42391 WBC 7.9 x 10EE3/UL Normal 4.5 - 10.8 [facility] Comment on above: Performed By: #### 2 63040 #### [facility],[address] [place] [address] 92331 CMP with eGFRon 10-15-2024 AGE 39 years Normal [facility] Comment on above: Performed By: #### 2 83108 #### [facility],[address] [place] [address] 52196 Albumin [Mass/Vol] 2.9 g/dL Low 3.4 - 5.0 [facility] Comment on above: Performed By: #### 2 16297 #### [facility],[address] [place] [address] 80672 Albumin/Globulin [Mass ratio] 0.5 {ratio} Low 0.9 - 1.6 [facility] Comment on above: Performed By: #### 2 86000 #### [facility],[address] [place] [address] 26381 ALK PHOS 151 U/L High 46 - 116 [facility] Comment on above: Performed By: #### 2 03472 #### [facility],[address] [place] [address] 57530 ALT [Catalytic activity/Vol] 45 U/L Normal 16 - 63 [facility] Comment on above: Performed By: #### 2 48133 #### [facility],[address] [place] [address] 12283 Anion gap [Moles/Vol] 21 mmol/L High 10 - 20 [facility] Comment on above: Performed By: #### 2 89264 #### [facility],[address] [place] [address] 77126 AST [Catalytic activity/Vol] 30 U/L Normal 13 - 39 [facility] Comment on above: Performed By: #### 2 17310 #### [facility],[address] [place] [address] 26048 B/C RATIO 19 ratio Normal 0 - 30 [facility] Comment on above: Performed By: #### 2 83040 #### [facility],[address] [place] [address] 17439 Bilirubin [Mass/Vol] 0.9 mg/dL Normal 0.2 - 1.0 [facility] Comment on above: Performed By: #### 2 89552 #### [facility],[address] [place] [address] 42437 Calcium [Mass/Vol] 9.4 mg/dL Normal 8.5 - 10.1 [facility] Comment on above: Result Comment: RESU LTS REPEATED AND VERIFIED Performed By: #### 2 62082 #### [facility],[address] [place] [address] 82211 Chloride [Moles/Vol] 94 mmol/L Low 98 - 107 [facility] Comment on above: Performed By: #### 2 22719 #### [facility],[address] [place] [address] 65299 CMP with eGFR Normal [facility] Comment on above: Result Comment: COMP REHENSIVE METABOLIC PANEL Performed By: #### 2 60734 #### [facility],[address] [place] [address] 94130 CO2 [Moles/Vol] 20.9 mmol/L Low 21.0 - 32.0 [facility] Comment on above: Result Comment: RESU LTS REPEATED AND VERIFIED Performed By: #### 2 61460 #### [address] [address] Creatinine [Mass/Vol] 1.49 mg/dL High 0.55 - 1.02 [facility] Comment on above: Result Comment: RESU LTS REPEATED AND VERIFIED Performed By: #### 2 22551 #### [facility],[address] [place] [address] 65381 eGFR 39 ML/MINUTE Low 60 - 999 [facility] Comment on above: Performed By: #### 2 78095 #### [facility],[address] [place] [address] 70410 eGFR(AA) 47 ML/MINUTE Low 60 - 999 [facility] Comment on above: Result Comment: ACCO RDING TO THE NATIONAL KIDNEY DISEASE EDUCATION PROGRAM(NKDE), A NORMAL eGFR IS A VALUE GREATER THAN OR EQUAL TO 60 ML/MIN/1.73 SQ METERS. CHRONIC KIDNEY DISEASE: <60mL/MIN/1.73 SQ METERS KIDNEY FAILURE: <15mL/MIN/1.73 SQ METERS THIS TEST SHOULD ONLY BE USED FOR PATIENTS 18 YEARS OF AGE AND OLDER. Performed By: #### 2 24943 #### [facility],[address] [place] [address] 29335 Globulin (S) [Mass/Vol] 5.8 g/dL High 1.5 - 3.8 [facility] Comment on above: Performed By: #### 2 89672 #### [facility],[address] [place] [address] 19782 Glucose [Mass/Vol] 101 mg/dL Normal 74 - 106 [facility] Comment on above: Performed By: #### 2 71467 #### [facility],[address] [place] [address] 96251 Potassium [Moles/Vol] 3.4 mmol/L Low 3.5 - 5.1 [facility] Comment on above: Performed By: #### 2 49904 #### [facility],[address] [place] [address] 02768 Protein [Mass/Vol] 8.7 g/dL High 6.4 - 8.2 [facility] Comment on above: Performed By: #### 2 58512 #### [facility],[address] [place] [address] 45997 Sodium [Moles/Vol] 132 mmol/L Low 136 - 145 [facility] Comment on above: Performed By: #### 2 02359 #### [facility],[address] [place] [address] 01922 Urea nitrogen [Mass/Vol] 29 mg/dL High 7 - 18 [facility] Comment on above: Performed By: #### 2 67732 #### [facility],[address] [place] [address] 01116 HEMOGLOBIN A1C (POM)on 10-15 Glucose [Mass/Vol] 131.2 mg/dL High 0.0 - 0.0 [facility] Comment on above: Result Comment: BLDo HEMOGLOBIN A1C REFERENCE RANGESBLDo Suggested Diagnosis HbA1c(%) HbA1C (mmol/mol Diabetic >/=6.5 >/=48 Prediabetes 5.7 - 6.4 39 - 47 Normal <5.7 <39 Performed By: #### 2 17801 #### [facility],[address] [place] [address] 33404 HbA1c (Bld) [Mass fraction] 6.2 % Normal 0.0 - 6.5 [facility] Comment on above: Performed By: #### 2 52714 #### [facility],[address] [place] [address] 43759 LIPID PROFILEon 10-15-2024 Cholesterol [Mass/Vol] 88 mg/dL Normal 0 - 240 [facility] Comment on above: Performed By: #### 2 25920 #### [facility],[address] [place] [address] 57589 Cholesterol in HDL [Mass/Vol] 66 mg/dL High 40 - 60 [facility] Comment on above: Performed By: #### 2 68230 #### [facility],[address] [place] [address] 24838 Cholesterol in LDL [Mass/Vol] 8 mg/dL Normal 0 - 129 [facility] Comment on above: Performed By: #### 2 18933 #### [facility],[address] [place] [address] 61404 Cholesterol.total/C holesterol in HDL [Mass ratio] 1.3 {ratio} Normal 0.0 - 5.0 [facility] Comment on above: Performed By: #### 2 89449 #### [facility],[address] [place] [address] 14403 Lipid 1996 panel Normal [facility] Comment on above: Result Comment: LIPI D PROFILE Performed By: #### 2 20377 #### [facility],[address] [place] [address] 55238 Triglyceride [Mass/Vol] 72 mg/dL Normal 0 - 150 [facility] Comment on above: Performed By: #### 2 83499 #### [facility],[address] [place] [address] 45315 HALOPERIDOL [CCL]on 04-19-20 25 Haloperidol <0.6 Low 5.0-20.0 [facility] Comment on above: Result Comment: INTE RPRETIVE INFORMATION: Haloperidol Level Therapeutic Range: 5.0-20.0 ng/mL Toxic: Greater than 50 ng/mL The therapeutic range is based on serum pre-dose (trough) draw at steady-state concentration. Adverse effects may include drowsiness, blurred vision, tardive dyskinesia, tachycardia, hypotension and muscular rigidity. This test was developed and its performance characteristics determined by [facility]. It has not been cleared or approved by the [place] Food and Drug Administration. This test was performed in a CLIA certified laboratory and is intended for clinical purposes. Performed By: [id number] [address] [place] [address] Docketing Specialist: Willis Christine MD, PhD CLIA Number: [id number] [place] [address] Jaison Lema III, M.D. [id number] Performed By: #### 2 15555 #### [facility],[address] [place] [address] Basic metabolic 2000 panelon 10-12-2024 Anion gap [Moles/Vol] 7 mmol/L Normal 5-16 [facility] Comment on above: Order Comment: Speci men Type: BLOOD SPECIMEN Ordering Facility: [facility] Address: [address] [place] [address] Performed By: #### 4 5066-8 #### [facility] CLIA [id number] [address] [place] [address] [place] Calcium [Mass/Vol] 9.4 mg/dL Normal 8.5-10.5 [facility] Comment on above: Order Comment: Florii stef Type: BLOOD SPECIMEN Ordering Facility: [facility] Address: [address] [place] [address] Performed By: #### 4 5066-8 #### [facility] CLIA [id number] [address] [place], [place] [address] [place] Chloride [Moles/Vol] 103 mmol/L Normal 98-107 [facility] Comment on above: Order Comment: Speci men Type: BLOOD SPECIMEN Ordering Facility: [facility] Address: [address] [place] [address] Performed By: #### 4 5066-8 #### [facility] CLIA [id number] [address] [place] [address] [place] CO2 [Moles/Vol] 24 mmol/L Normal 21-32 [facility] Comment on above: Order Comment: Speci men Type: BLOOD SPECIMEN Ordering Facility: [facility] Address: [address] [place] [address] Performed By: #### 4 5066-8 #### [facility] CLIA [id number] [address] [place] [address] [place] Creatinine [Mass/Vol] 0.83 mg/dL Normal 0.51-0.95 [facility] Comment on above: Order Comment: Speci men Type: BLOOD SPECIMEN Ordering Facility: [facility] Address: [address] [place] [address] Result Comment: Marissa ents receiving either N-Acetylcysteine (NAC) or Metamizole prior to venipuncture, may have falsely depressed results. Performed By: #### 4 5066-8 #### [facility] CLIA [id number] [address] [place] [address] [place] Creatinine and Glomerular filtration rate.predicted panel (S/P/Bld) 91 mL/min/1.73m??? Normal >=60 [facility] Comment on above: Order Comment: Speci men Type: BLOOD SPECIMEN Ordering Facility: [facility] Address: [address] [place] [address] Result Comment: Zeny mated Glomerular Filtration Rate [...] GFR. Performed By: #### 4 5066-8 #### [facility] CLIA [id number] [address] [place] [address] [place] Glucose [Mass/Vol] 99 mg/dL Normal 70-100 [facility] Comment on above: Order Comment: Dora finch Type: BLOOD SPECIMEN Ordering Facility: [facility] Address: [address] [place] [address] Result Comment: The [place] [employer] (ADA) provides guidance for cutoff [...] Standards of Medical Care in Diabetes 2016, [place] [employer]. Diabetes Care. 2016.39(Suppl 1). Results may be falsely elevated after the administration of Sulfapyridine. Results may be falsely depressed after the administration of Sulfasalazine. Performed By: #### 4 5066-8 #### [facility] CLIA [id number] [address] [place] [address] [place] Potassium [Moles/Vol] 3.6 mmol/L Normal 3.5-5.1 [facility] Comment on above: Order Comment: Dora finch Type: BLOOD SPECIMEN Ordering Facility: [facility] Address: [address] [place] [address] Performed By: #### 4 5066-8 #### [facility] CLIA [id number] [address] [place] [address] [place] Sodium [Moles/Vol] 134 mmol/L Low 136-145 [facility] Comment on above: Order Comment: Dora finch Type: BLOOD SPECIMEN Ordering Facility: [facility] Address: [address] [place], [place] [address] Performed By: #### 4 5066-8 #### [facility] CLIA [id number] [address] [place] [address] [place] Urea nitrogen [Mass/Vol] 7 mg/dL Normal 7-26 [facility] Comment on above: Order Comment: Speci men Type: BLOOD SPECIMEN Ordering Facility: [facility] Address: [address] [place] [address] Performed By: #### 4 5066-8 #### [facility] CLIA [id number] [address] [place] [address] [place] CBC W Auto Differential pane l (Bld)on 10-12-2024 Basophils (Bld) [#/Vol] 0.05 10*3/uL Normal <0.11 [facility] Comment on above: Order Comment: Speci men Type: BLOOD SPECIMEN Ordering Facility: [facility] Address: [address] [place] [address] Performed By: #### 4 5066-8 #### [facility] CLIA [id number] [address] [place] [address] [place] Basophils/100 WBC (Bld) 0.7 % Normal [facility] Comment on above: Order Comment: Speci men Type: BLOOD SPECIMEN Ordering Facility: [facility] Address: [address] [place] [address] Performed By: #### 4 5066-8 #### [facility] CLIA [id number] [address] [place] [address] [place] Differential cell count method Nom (Bld) Auto Normal [facility] Comment on above: Order Comment: Speci men Type: BLOOD SPECIMEN Ordering Facility: [facility] Address: [address] [place] [address] Performed By: #### 4 5066-8 #### [facility] CLIA [id number] [address] [place] [address] [place] Eosinophils (Bld) [#/Vol] 0.14 10*3/uL Normal <0.46 [facility] Comment on above: Order Comment: Speci men Type: BLOOD SPECIMEN Ordering Facility: [facility] Address: [address] [place], [place] [address] Performed By: #### 4 5066-8 #### [facility] CLIA [id number] [address] [place] [address] [place] Eosinophils/100 WBC (Bld) 1.9 % Normal [facility] Comment on above: Order Comment: Speci men Type: BLOOD SPECIMEN Ordering Facility: [facility] Address: [address] [place] [address] Performed By: #### 4 5066-8 #### [facility] CLIA [id number] [address] [place] [address] [place] Erythrocyte distribution width (RBC) [Ratio] 14.6 % Normal 11.5-15.0 [facility] Comment on above: Order Comment: Speci men Type: BLOOD SPECIMEN Ordering Facility: [facility] Address: [address] [place] [address] Performed By: #### 4 5066-8 #### [facility] CLIA [id number] [address] [place] [address] [place] Hematocrit (Bld) [Volume fraction] 33.2 % Low 36.0-46.0 [facility] Comment on above: Order Comment: Speci men Type: BLOOD SPECIMEN Ordering Facility: [facility] Address: [address] [place] [address] Performed By: #### 4 5066-8 #### [facility] CLIA [id number] [address] [place] [address] [place] Hemoglobin (Bld) [Mass/Vol] 10.1 g/dL Low 11.5-15.5 [facility] Comment on above: Order Comment: Speci men Type: BLOOD SPECIMEN Ordering Facility: [facility] Address: [address] [place] [address] Performed By: #### 4 5066-8 #### [facility] CLIA [id number] [address] [place] [address] [place] Immature granulocytes (Bld) [#/Vol] 0.04 10*3/uL Normal <0.10 [facility] Comment on above: Order Comment: Speci men Type: BLOOD SPECIMEN Ordering Facility: [facility] Address: [address] [place] [address] Performed By: #### 4 5066-8 #### [facility] CLIA [id number] [address] [place] [address] [place] Immature granulocytes/100 WBC (Bld) 0.5 % Normal [facility] Comment on above: Order Comment: Speci men Type: BLOOD SPECIMEN Ordering Facility: [facility] Address: [address] [place] [address] Performed By: #### 4 5066-8 #### [facility] CLIA [id number] [address] [place] [address] [place] Lymphocytes (Bld) [#/Vol] 2.84 10*3/uL Normal 1.00-4.00 [facility] Comment on above: Order Comment: Speci men Type: BLOOD SPECIMEN Ordering Facility: [facility] Address: [address] [place] [address] Performed By: #### 4 5066-8 #### [facility] CLIA [id number] [address] [place] [address] Lymphocytes/100 WBC (Bld) 38.4 % Normal [facility] Comment on above: Order Comment: Speci men Type: BLOOD SPECIMEN Ordering Facility: [facility] Address: [address] [place] [address] Performed By: #### 4 5066-8 #### [facility] CLIA [id number] [address] [place] [address] [place] MCH (RBC) [Entitic mass] 24.1 pg Low 26.0-34.0 [facility] Comment on above: Order Comment: Speci men Type: BLOOD SPECIMEN Ordering Facility: [facility] Address: [address] [place] [address] Performed By: #### 4 5066-8 #### [facility] CLIA [id number] [address] [place] [address] [place] MCHC (RBC) [Mass/Vol] 30.4 g/dL Low 30.5-36.0 [facility] Comment on above: Order Comment: Speci men Type: BLOOD SPECIMEN Ordering Facility: [facility] Address: [address] [place] [address] Performed By: #### 4 5066-8 #### [facility] CLIA [id number] [address] [place] [address] [place] MCV (RBC) [Entitic vol] 79.2 fL Low 80.0-100.0 [facility] Comment on above: Order Comment: Speci men Type: BLOOD SPECIMEN Ordering Facility: [facility] Address: [address] [place] [address] Performed By: #### 4 5066-8 #### [facility] CLIA [id number] [address] [place] [address] [place] Monocytes (Bld) [#/Vol] 0.68 10*3/uL Normal <0.87 [facility] Comment on above: Order Comment: Speci men Type: BLOOD SPECIMEN Ordering Facility: [facility] Address: [address] [place] [address] Performed By: #### 4 5066-8 #### [facility] CLIA [id number] [address] [place] [address] [place] Monocytes/100 WBC (Bld) 9.2 % Normal [facility] Comment on above: Order Comment: Speci men Type: BLOOD SPECIMEN Ordering Facility: [facility] Address: [address] [place] [address] Performed By: #### 4 5066-8 #### [facility] CLIA [id number] [address] [place] [address] [place] Neutrophils (Bld) [#/Vol] 3.65 10*3/uL Normal 1.45-7.50 [facility] Comment on above: Order Comment: Speci men Type: BLOOD SPECIMEN Ordering Facility: [facility] Address: [address] [place] [address] Performed By: #### 4 5066-8 #### [facility] CLIA [id number] [address] [place] [address] [place] Neutrophils/100 WBC (Bld) 49.3 % Normal [facility] Comment on above: Order Comment: Speci men Type: BLOOD SPECIMEN Ordering Facility: [facility] Address: [address] [place] [address] Performed By: #### 4 5066-8 #### [facility] CLIA [id number] [address] [place] [address] [place] Nucleated RBC (Bld) [#/Vol] 10*3/uL Normal <0.01 [facility] Comment on above: Order Comment: Speci men Type: BLOOD SPECIMEN Ordering Facility: [facility] Address: [address] [place] [address] Performed By: #### 4 5066-8 #### [facility] CLIA [id number] [address] [place] [address] [place] Nucleated RBC/100 WBC (Bld) [Ratio] 0.0 /100 WBC Normal [facility] Comment on above: Order Comment: Speci men Type: BLOOD SPECIMEN Ordering Facility: [facility] Address: [address] [place] [address] Performed By: #### 4 5066-8 #### [facility] CLIA [id number] [address] [place] [address] [place] Platelet mean volume (Bld) [Entitic vol] 8.9 fL Low 9.0-12.7 [facility] Comment on above: Order Comment: Speci men Type: BLOOD SPECIMEN Ordering Facility: [facility] Address: [address] [place] [address] Performed By: #### 4 5066-8 #### [facility] CLIA [id number] [address] [place] [address] [place] Platelets (Bld) [#/Vol] 344 10*3/uL Normal 150-400 [facility] Comment on above: Order Comment: Speci men Type: BLOOD SPECIMEN Ordering Facility: [facility] Address: [address] [place] [address] Performed By: #### 4 5066-8 #### [facility] CLIA [id number] [address] [place], [place] [address] [facility] RBC (Bld) [#/Vol] 4.19 10*6/uL Normal 3.90-5.20 [facility] Comment on above: Order Comment: Speci men Type: BLOOD SPECIMEN Ordering Facility: [facility] Address: [address] [place] [address] Performed By: #### 4 5066-8 #### [facility] CLIA [id number] [address] [place], [place] [address] [facility] WBC (Bld) [#/Vol] 7.40 10*3/uL Normal 3.70-11.00 [facility] Comment on above: Order Comment: Speci men Type: BLOOD SPECIMEN Ordering Facility: [facility] Address: [address] [place] [address] Performed By: #### 4 5066-8 #### [facility] CLIA [id number] [address] [place], [place] [address] [facility] CNDSon 10-12-2024 CNDS HNO ID: [id number] Author: DIANDRA MARTINEZ MD Service: General Internal [...] Lovenox, status post colostomy who presented to [facility] ED for accidental overdose. Patient resides in a nursing facility, approximately 1 month ago was taken to [facility] for colostomy after developing bowel obstruction. During [...] PATIENT CONDITION AT DISCHARGE: Stable DISCHARGE DISPOSITION: [facility] Physical Exam: General: Not in acute [...] escitalopram oxa (more content not included)... Normal [facility] Basic metabolic 2000 panelon 10-11-2024 Anion gap [Moles/Vol] 10 mmol/L Normal 5-16 [facility] Comment on above: Order Comment: Speci stef Type: BLOOD SPECIMENOrdering Facility: [facility] Address: [address] [place] [address] Performed By: #### 2 4321-2 ####[facility]ORYCLIA [id number] [place] [address] [place] Calcium [Mass/Vol] 9.2 mg/dL Normal 8.5-10.5 [facility] Comment on above: Order Comment: Florii stef Type: BLOOD SPECIMENOrdering Facility: [facility] Address: [address] [place] [address] Performed By: #### 2 4321-2 ####[facility]ORYCLIA [id number] [place] [address] [place] Chloride [Moles/Vol] 101 mmol/L Normal 98-107 [facility] Comment on above: Order Comment: Speci men Type: BLOOD SPECIMENOrdering Facility: [facility] Address: [address] [place] [address] Performed By: #### 2 4321-2 ####[facility]ORYCLIA [id number] [place] [address] [place] CO2 [Moles/Vol] 25 mmol/L Normal 21-32 [facility] Comment on above: Order Comment: Speci men Type: BLOOD SPECIMENOrdering Facility: [facility] Address: [address] [place] [address] Performed By: #### 2 4321-2 ####[facility]ORYCLIA [id number] [address] [place] Creatinine [Mass/Vol] 0.76 mg/dL Normal 0.51-0.95 [facility] Comment on above: Order Comment: Speci men Type: BLOOD SPECIMENOrdering Facility: [facility] Address: [address] [place] [address] Result Comment: Marissa ents receiving either N-Acetylcysteine (NAC) or Metamizole prior to venipuncture, may have falsely depressed results. Performed By: #### 2 4321-2 ####[facility]ORYCLIA [id number] [place] [address] [place] Creatinine and Glomerular filtration rate.predicted panel (S/P/Bld) 101 mL/min/1.73m??? Normal >=60 [facility] Comment on above: Order Comment: Speci men Type: BLOOD SPECIMENOrdering Facility: [facility] Address: [address] [place] [address] Result Comment: Zeny mated Glomerular Filtration Rate [...] actual GFR. Performed By: #### 2 4321-2 ####[facility]ATORYCLIA [id number] [place] [id number] [place] Glucose [Mass/Vol] 102 mg/dL High 70-100 [facility] Comment on above: Order Comment: Speci stef Type: BLOOD SPECIMENOrdering Facility: [facility] Address: [address] [place] [id number] Result Comment: The [place] [employer] (ADA) provides guidance for cutoff [...] Standards of Medical Care in Diabetes 2016, [place] [employer]. Diabetes Care. 2016.39(Suppl 1). Results may be falsely elevated after the administration of Sulfapyridine. Results may be falsely depressed after the administration of Sulfasalazine. Performed By: #### 2 4321-2 ####[facility]ATORYCLIA [id number] [place] [id number] [place] Potassium [Moles/Vol] 3.0 mmol/L Low 3.5-5.1 [facility] Comment on above: Order Comment: Florii men Type: BLOOD SPECIMENOrdering Facility: [facility] Address: [address] [place] [address] Performed By: #### 2 4321-2 ####[facility]ORYCLIA [id number] [place] [id number] [place] Sodium [Moles/Vol] 136 mmol/L Normal 136-145 [facility] Comment on above: Order Comment: Florii stef Type: BLOOD SPECIMENOrdering Facility: [facility] Address: [address] [place] [address] Performed By: #### 2 4321-2 ####[facility]ATORYCLIA [id number] [place] [address] [place] Urea nitrogen [Mass/Vol] 6 mg/dL Low 01-19 [facility] Comment on above: Order Comment: Speci men Type: BLOOD SPECIMENOrdering Facility: [facility] Address: [address] [place] [address] Performed By: #### 2 4321-2 ####[facility]ATORYCLIA [id number] [place] [address] [place] CBC W Auto Differential pane l (Bld)on 10-11-2024 Basophils (Bld) [#/Vol] 0.03 10*3/uL Normal <0.11 [facility] Comment on above: Order Comment: Speci men Type: BLOOD SPECIMENOrdering Facility: [facility] Address: [address] [place] [address] Performed By: #### 5 7021-8 ####[facility]ATORYCLIA [id number] [place] [address] [place] Basophils/100 WBC (Bld) 0.5 % Normal [facility] Comment on above: Order Comment: Speci men Type: BLOOD SPECIMENOrdering Facility: [facility] Address: [address] [place] [address] Performed By: #### 5 7021-8 ####[facility]ATORYCLIA [id number] [address] [place] Differential cell count method Nom (Bld) Auto Normal [facility] Comment on above: Order Comment: Speci men Type: BLOOD SPECIMENOrdering Facility: [facility] Address: [address] [place] [address] Performed By: #### 5 7021-8 ####[facility]ATORYCLIA [id number] [place] [address] [place] Eosinophils (Bld) [#/Vol] 0.09 10*3/uL Normal <0.46 [facility] Comment on above: Order Comment: Speci men Type: BLOOD SPECIMENOrdering Facility: [facility] Address: [address] [place] [address] Performed By: #### 5 7021-8 ####[facility]ATORYCLIA [id number] [place] [id number] [place] Eosinophils/100 WBC (Bld) 1.5 % Normal [facility] Comment on above: Order Comment: Speci men Type: BLOOD SPECIMENOrdering Facility: [facility] Address: [address] [place] [address] Performed By: #### 5 7021-8 ####[facility]ATORYCLIA [id number] [address] [place] Erythrocyte distribution width (RBC) [Ratio] 14.8 % Normal 11.5-15.0 [facility] Comment on above: Order Comment: Speci men Type: BLOOD SPECIMENOrdering Facility: [facility] Address: [address] [place] [address] Performed By: #### 5 7021-8 ####[facility]ORATORYCLIA [id number] [place] [address] [place] Hematocrit (Bld) [Volume fraction] 29.6 % Low 36.0-46.0 [facility] Comment on above: Order Comment: Speci men Type: BLOOD SPECIMENOrdering Facility: [facility] Address: [address] [place] [address] Performed By: #### 5 7021-8 ####[facility]ORATORYCLIA [id number] [place] [address] [place] Hemoglobin (Bld) [Mass/Vol] 9.2 g/dL Low 11.5-15.5 [facility] Comment on above: Order Comment: Speci men Type: BLOOD SPECIMENOrdering Facility: [facility] Address: [address] [place] [address] Performed By: #### 5 7021-8 ####[facility] LABORATORYCLIA [id number] [place] [id number] [place] Immature granulocytes (Bld) [#/Vol] 0.03 10*3/uL Normal <0.10 [facility] Comment on above: Order Comment: Speci men Type: BLOOD SPECIMENOrdering Facility: [facility] Address: [address] [place] [address] Performed By: #### 5 7021-8 ####[facility] LABORATORYCLIA [id number] [place] [address] [place] Immature granulocytes/100 WBC (Bld) 0.5 % Normal [facility] Comment on above: Order Comment: Speci men Type: BLOOD SPECIMENOrdering Facility: [facility] Address: [address] [place] [address] Performed By: #### 5 7021-8 ####[facility] LABORATORYCLIA [id number] [place] [address] [place] Lymphocytes (Bld) [#/Vol] 1.59 10*3/uL Normal 1.00-4.00 [facility] Comment on above: Order Comment: Speci men Type: BLOOD SPECIMENOrdering Facility: [facility] Address: [address] [place] [address] Performed By: #### 5 7021-8 ####[facility] LABORATORYCLIA [id number] [address] [place] Lymphocytes/100 WBC (Bld) 27.2 % Normal [facility] Comment on above: Order Comment: Speci men Type: BLOOD SPECIMENOrdering Facility: [facility] Address: [address] [place] [address] Performed By: #### 5 7021-8 ####[facility] LABORATORYCLIA [id number] [place] [address] [place] MCH (RBC) [Entitic mass] 24.2 pg Low 26.0-34.0 [facility] Comment on above: Order Comment: Speci men Type: BLOOD SPECIMENOrdering Facility: [facility] Address: [address] [place] [address] Performed By: #### 5 7021-8 ####[facility] LABORATORYCLIA [id number] [place] [address] [place] MCHC (RBC) [Mass/Vol] 31.1 g/dL Normal 30.5-36.0 [facility] Comment on above: Order Comment: Speci men Type: BLOOD SPECIMENOrdering Facility: [facility] Address: [address] [place] [address] Performed By: #### 5 7021-8 ####[facility] LABORATORYCLIA [id number] [place] [address] [place] MCV (RBC) [Entitic vol] 77.9 fL Low 80.0-100.0 [facility] Comment on above: Order Comment: Speci men Type: BLOOD SPECIMENOrdering Facility: [facility] Address: [address] [place] [address] Performed By: #### 5 7021-8 ####[facility] LABORATORYCLIA [id number] [place] [address] [place] Monocytes (Bld) [#/Vol] 0.62 10*3/uL Normal <0.87 [facility] Comment on above: Order Comment: Speci men Type: BLOOD SPECIMENOrdering Facility: [facility] Address: [address] [place] [address] Performed By: #### 5 7021-8 ####[facility] LABORATORYCLIA [id number] [address] [place] Monocytes/100 WBC (Bld) 10.6 % Normal [facility] Comment on above: Order Comment: Speci men Type: BLOOD SPECIMENOrdering Facility: [facility] Address: [address] [place] [address] Performed By: #### 5 7021-8 ####[facility] LABORATORYCLIA [id number] [place] [address] [place] Neutrophils (Bld) [#/Vol] 3.48 10*3/uL Normal 1.45-7.50 [facility] Comment on above: Order Comment: Speci men Type: BLOOD SPECIMENOrdering Facility: [facility] Address: [address] [place] [address] Performed By: #### 5 7021-8 ####[facility] LABORATORYCLIA [id number] [place] [id number] [facility] Neutrophils/100 WBC (Bld) 59.7 % Normal [facility] Comment on above: Order Comment: Speci men Type: BLOOD SPECIMENOrdering Facility: [facility] Address: [address] [place] [address] Performed By: #### 5 7021-8 ####[facility] LABORATORYCLIA [id number] [place] [address] [place] Nucleated RBC (Bld) [#/Vol] 10*3/uL Normal <0.01 [facility] Comment on above: Order Comment: Speci men Type: BLOOD SPECIMENOrdering Facility: [facility] Address: [address] [place] [address] Performed By: #### 5 7021-8 ####[facility] LABORATORYCLIA [id number] [address] [place] Nucleated RBC/100 WBC (Bld) [Ratio] 0.0 /100 WBC Normal [facility] Comment on above: Order Comment: Speci men Type: BLOOD SPECIMENOrdering Facility: [facility] Address: [address] [place] [address] Performed By: #### 5 7021-8 ####[facility] LABORATORYCLIA [id number] [place] [address] [place] Platelet mean volume (Bld) [Entitic vol] 9.3 fL Normal 9.0-12.7 [facility] Center Comment on above: Order Comment: Speci men Type: BLOOD SPECIMENOrdering Facility: [facility] Address: [address] [place] [address] Performed By: #### 5 7021-8 ####[facility] LABORATORYCLIA [id number] [place] [address] [place] Platelets (Bld) [#/Vol] 362 10*3/uL Normal 150-400 [facility] Comment on above: Order Comment: Speci men Type: BLOOD SPECIMENOrdering Facility: [facility] Address: [address] [id number] Performed By: #### 5 7021-8 ####[facility] LABORATORYCLIA [id number] [address] OF [facility] RBC (Bld) [#/Vol] 3.80 10*6/uL Low 3.90-5.20 [facility] Comment on above: Order Comment: Speci men Type: BLOOD SPECIMENOrdering Facility: [facility] Address: [address] [place] [address] Performed By: #### 5 7021-8 ####[facility] LABORATORYCLIA [id number] [address] OF [facility] WBC (Bld) [#/Vol] 5.84 10*3/uL Normal 3.70-11.00 [facility] Comment on above: Order Comment: Speci men Type: BLOOD SPECIMENOrdering Facility: [facility] Address: [address] [place] [address] Performed By: #### 5 7021-8 ####[facility] LABORATORYCLIA [id number] [address] OF [facility] ALLIED HEALTHon 10-10-2024 ALLIED HEALTH HNO ID: [id number] Author: SANG CASE RN Service: Wound/Ostomy Author [...] Black Pt states she sees vascular at [facility] and will go there on the for another follow up. States she is using betadine for the toes/heel. RECOMMENDATIONS: watch inspector final movement Communication Order; Dressing recommendations require a provider's order, please obtain and place as a Dressing Care order. Right and left toe and Left Heel eschar. [place] with betadine daily. If you notice drainage anywhere, apply silver alginate and gauze-change daily. Maintain pressure prevention interventions-offload heels with pillows or Truevue boots.. Re-consult Wound Care if skin or wounds deteriorate further or if new problems arise. [facility] ALLIED HEALTH HNO ID: [id number] Author: SANG CASE RN Service: Wound/Ostomy Author [...] sting skin prep pad. Apply Augustine paste #39220 into any creases at 3 and 9 o'clock. Apply Augustine #8815 adapt ring around the stoma. Apply pouching system: Pouching System: There are 2 pouches for the patient to try 1) #82211 S[employer] [place] 2 piece Flex High Output ostomy pouch with soft outlet-included a clip in case the drainage is too thick for the outlet. In this case, just cut off the spout and use a clip to secure/empty. #74661 Convex light ostomy 2 piece flex with belt tabs 2) can also try #01131 JERONIMO Ultramax cut to fit large deep convex pouch Wear Time Goal: 3-4 days If additional ostomy supplies are needed, please call [facility] [employer] ([phone]) for above mentioned supplies. If supplies are unavailable in [employer], please secure chat [facility] Nurses or call extension [phone] to request more supplies. Normal [facility] Basic metabolic 2000 panelon 10-10-2024 Anion gap [Moles/Vol] 9 mmol/L Normal 11-09 [facility] Comment on above: Order Comment: Speci men Type: BLOOD SPECIMEN [facility] Address: [address] [place], [place] [address] [address] Performed By: #### 2 4321-2 #### [facility] CLIA [id number] [address] [place], [place] [address] [place] Calcium [Mass/Vol] 9.2 mg/dL Normal 8.5-10.5 [facility] Comment on above: Order Comment: Speci men Type: BLOOD SPECIMEN [facility] Address: [address] [place] [address] Performed By: #### 2 4321-2 #### [facility] CLIA [id number] [address] [place] [address] [place] Chloride [Moles/Vol] 99 mmol/L Normal 98-107 [facility] Comment on above: Order Comment: Speci men Type: BLOOD SPECIMEN [facility] Address: [address] [place] [address] Performed By: #### 2 4321-2 #### [facility] CLIA [id number] [address] [place] [address] [place] CO2 [Moles/Vol] 22 mmol/L Normal 21-32 [facility] Comment on above: Order Comment: Speci men Type: BLOOD SPECIMEN [facility] Address: [address] [place] [address] Performed By: #### 2 4321-2 #### [facility] CLIA [id number] [address] [place] [address] [place] Creatinine [Mass/Vol] 0.76 mg/dL Normal 0.51-0.95 [facility] Comment on above: Order Comment: Speci men Type: BLOOD SPECIMEN [facility] Address: [address] [place] [address] Result Comment: Marissa ents receiving either N-Acetylcysteine (NAC) or Metamizole prior to venipuncture, may have falsely depressed results. Performed By: #### 2 4321-2 #### [facility] CLIA [id number] [address] [place], [place] [address] [place] Creatinine and Glomerular filtration rate.predicted panel (S/P/Bld) 101 mL/min/1.73m??? Normal >=60 [facility] Comment on above: Order Comment: Dora finch Type: BLOOD SPECIMEN [facility] Address: [address] [place] [address] Result Comment: Zeny mated Glomerular Filtration Rate [...] GFR. Performed By: #### 2 4321-2 #### [facility] CLIA [id number] [address] [place] [address] [place] Glucose [Mass/Vol] 88 mg/dL Normal 70-100 [facility] Comment on above: Order Comment: Dora finch Type: BLOOD SPECIMEN [facility] Address: [address] [place] [address] Result Comment: The [place] Diabetes Association (ADA) provides guidance for cutoff [...] Standards of Medical Care in Diabetes 2016, [place] [employer]. Diabetes Care. 2016.39(Suppl 1). Results may be falsely elevated after the administration of Sulfapyridine. Results may be falsely depressed after the administration of Sulfasalazine. Performed By: #### 2 4321-2 #### [facility] CLIA [id number] [address] [place] [address] [place] Potassium [Moles/Vol] 3.4 mmol/L Low 3.5-5.1 [facility] Comment on above: Order Comment: Speci men Type: BLOOD SPECIMEN [facility] Address: [address] [place] [address] Performed By: #### 2 4321-2 #### [facility] CLIA [id number] [address] [place] [address] [place] Sodium [Moles/Vol] 130 mmol/L Low 136-145 [facility] Comment on above: Order Comment: Speci men Type: BLOOD SPECIMEN [facility] Address: [address] [place] [address] Performed By: #### 2 4321-2 #### [facility] CLIA [id number] [address] [place] [address] [place] Urea nitrogen [Mass/Vol] 9 mg/dL Normal 01-19 [facility] Comment on above: Order Comment: Speci men Type: BLOOD SPECIMEN [facility] Address: [address] [place] [address] Performed By: #### 2 4321-2 #### [facility] CLIA [id number] [address] [place] [address] [place] CBC W Auto Differential pane l (Bld)on 10-10-2024 Basophils (Bld) [#/Vol] 0.05 10*3/uL Normal <0.11 [facility] Comment on above: Order Comment: Speci men Type: BLOOD SPECIMEN [facility] Address: [address] [place] [address] Performed By: #### 5 7021-8 #### [facility] CLIA [id number] [address] [place] [address] [place] Basophils/100 WBC (Bld) 0.7 % Normal [facility] Comment on above: Order Comment: Speci men Type: BLOOD SPECIMEN [facility] Address: [address] [place] [address] Performed By: #### 5 7021-8 #### [facility] CLIA [id number] [address] [place] [address] [place] Differential cell count method Nom (Bld) Auto Normal [facility] Comment on above: Order Comment: Speci men Type: BLOOD SPECIMEN [facility] Address: [address] [place] [address] Performed By: #### 5 7021-8 #### [facility] CLIA [id number] [address] [place] [address] [place] Eosinophils (Bld) [#/Vol] 0.07 10*3/uL Normal <0.46 [facility] Comment on above: Order Comment: Speci men Type: BLOOD SPECIMEN [facility] Address: [address] [place] [address] Performed By: #### 5 7021-8 #### [facility] CLIA [id number] [address] [place] [address] [place] Eosinophils/100 WBC (Bld) 1.0 % Normal [facility] Comment on above: Order Comment: Speci men Type: BLOOD SPECIMEN [facility] Address: [address] [place] [address] Performed By: #### 5 7021-8 #### [facility] CLIA [id number] [address] [place] [address] [place] Erythrocyte distribution width (RBC) [Ratio] 14.9 % Normal 11.5-15.0 [facility] Comment on above: Order Comment: Speci men Type: BLOOD SPECIMEN [facility] Address: [address] [place] [address] Performed By: #### 5 7021-8 #### [facility] CLIA [id number] [address] [place] [address] [place] Hematocrit (Bld) [Volume fraction] 33.3 % Low 36.0-46.0 [facility] Comment on above: Order Comment: Speci men Type: BLOOD SPECIMEN [facility] Address: [address] [place] [address] Performed By: #### 5 7021-8 #### [facility] CLIA [id number] [address] [place] [address] [place] Hemoglobin (Bld) [Mass/Vol] 10.4 g/dL Low 11.5-15.5 [facility] Comment on above: Order Comment: Speci men Type: BLOOD SPECIMEN [facility] Address: [address] [place] [address] Performed By: #### 5 7021-8 #### [facility] CLIA [id number] [address] [place] [address] [place] Immature granulocytes (Bld) [#/Vol] 10*3/uL Normal <0.10 [facility] Comment on above: Order Comment: Speci men Type: BLOOD SPECIMEN [facility] Address: [address] [place] [address] Performed By: #### 5 7021-8 #### [facility] CLIA [id number] [address] [place] [address] [place] Immature granulocytes/100 WBC (Bld) 0.3 % Normal [facility] Comment on above: Order Comment: Speci men Type: BLOOD SPECIMEN [facility] Address: [address] [place] [address] Performed By: #### 5 7021-8 #### [facility] CLIA [id number] [address] [place] [address] [place] Lymphocytes (Bld) [#/Vol] 2.17 10*3/uL Normal 1.00-4.00 [facility] Comment on above: Order Comment: Speci men Type: BLOOD SPECIMEN [facility] Address: [address] [place] [address] Performed By: #### 5 7021-8 #### [facility] CLIA [id number] [address] [place] [address] [place] Lymphocytes/100 WBC (Bld) 30.6 % Normal [facility] Comment on above: Order Comment: Speci men Type: BLOOD SPECIMEN [facility] Address: [address] [place] [address] Performed By: #### 5 7021-8 #### [facility] CLIA [id number] [address] [place] [address] [place] MCH (RBC) [Entitic mass] 24.3 pg Low 26.0-34.0 [facility] Comment on above: Order Comment: Speci men Type: BLOOD SPECIMEN [facility] Address: [address] [place] [address] Performed By: #### 5 7021-8 #### [facility] CLIA [id number] [address] [place] [address] [place] MCHC (RBC) [Mass/Vol] 31.2 g/dL Normal 30.5-36.0 [facility] Comment on above: Order Comment: Speci men Type: BLOOD SPECIMEN [facility] Address: [address] [place] [address] Performed By: #### 5 7021-8 #### [facility] CLIA [id number] [address] [place] [address] [place] [facility] MCV (RBC) [Entitic vol] 77.8 fL Low 80.0-100.0 [facility] Comment on above: Order Comment: Speci men Type: BLOOD SPECIMEN [facility] Address: [address] [place] [address] Performed By: #### 5 7021-8 #### [facility] CLIA [id number] [address] [place] [address] [place] Monocytes (Bld) [#/Vol] 0.77 10*3/uL Normal <0.87 [facility] Comment on above: Order Comment: Speci men Type: BLOOD SPECIMEN [facility] Address: [address] [place] [address] Performed By: #### 5 7021-8 #### [facility] CLIA [id number] [address] [place] [address] [place] Monocytes/100 WBC (Bld) 10.9 % Normal [facility] Comment on above: Order Comment: Speci men Type: BLOOD SPECIMEN [facility] Address: [address] [place] [address] Performed By: #### 5 7021-8 #### [facility] CLIA [id number] [address] [place] [address] [place] Neutrophils (Bld) [#/Vol] 4.01 10*3/uL Normal 1.45-7.50 [facility] Comment on above: Order Comment: Speci men Type: BLOOD SPECIMEN [facility] Address: [address] [place] [address] Performed By: #### 5 7021-8 #### [facility] CLIA [id number] [address] [place] [address] [place] Neutrophils/100 WBC (Bld) 56.5 % Normal [facility] Comment on above: Order Comment: Speci men Type: BLOOD SPECIMEN [facility]ing [facility] Address: [address] [place] [address] Performed By: #### 5 7021-8 #### [facility] CLIA [id number] [address] [place] [address] [place] Nucleated RBC (Bld) [#/Vol] 10*3/uL Normal <0.01 [facility] Comment on above: Order Comment: Speci men Type: BLOOD SPECIMEN [facility] Address: [address] [place] [address] Performed By: #### 5 7021-8 #### [facility] CLIA [id number] [address] [place] [address] [place] Nucleated RBC/100 WBC (Bld) [Ratio] 0.0 /100 WBC Normal [facility] Comment on above: Order Comment: Speci men Type: BLOOD SPECIMEN [facility] Address: [address] [place] [address] Performed By: #### 5 7021-8 #### [facility] CLIA [id number] [address] [place] [address] [place] Platelet mean volume (Bld) [Entitic vol] 8.8 fL Low 9.0-12.7 [facility] Comment on above: Order Comment: Speci men Type: BLOOD SPECIMEN [facility] Address: [address] [place] [address] Performed By: #### 5 7021-8 #### [facility] CLIA [id number] [address] [place] [address] [place] Platelets (Bld) [#/Vol] 380 10*3/uL Normal 150-400 [facility] Comment on above: Order Comment: Speci men Type: BLOOD SPECIMEN [facility] Address: [address] [place] [address] Performed By: #### 5 7021-8 #### [facility] CLIA [id number] [address] [place] [address] [place] RBC (Bld) [#/Vol] 4.28 10*6/uL Normal 3.90-5.20 [facility] Comment on above: Order Comment: Speci men Type: BLOOD SPECIMEN [facility] Address: [address] [place] [address] Performed By: #### 5 7021-8 #### [facility] CLIA [id number] [address] [place] [address] [place] WBC (Bld) [#/Vol] 7.09 10*3/uL Normal 3.70-11.00 [facility] Comment on above: Order Comment: Speci men Type: BLOOD SPECIMEN [facility] Address: [address] [place] [address] Performed By: #### 5 7021-8 #### [facility] CLIA [id number] [address] [place] [address] CONSULTon 10-10-2024 CONSULT HNO ID: [id number] Author: RAKESH DAVIS APRN.DIRECTOR OF CLOUD SERVICES Service: Gastroenterology Author Type: Nurse Practitioner Type: [...] decrease to once daily until seen by cardiology nurse as an outpatient. Once her anticoagulation can [...] extremity lateral fasciotomy closures 08/23/2024, presented to [facility] 10/09 as a transfer from [facility] [...] Narcan x2 doses. Patient was taken to [facility] ED and transferred to [facility] for GI evaluation. The patient is [...] state on Loven (more content not included)... [facility] CONSULT PROGon 10-10-2024 CONSULT PROG HNO ID: [id number] Author: FREDRICK SALAS RPh Service: Pharmacy Author [...] if there are questions. Fredrick Salas RPh [facility] NUTRITIONon 10-10-2024 NUTRITION HNO ID: [id number] Author: KENYA SANTAMARIA RD Service: Nutrition Therapy [...] Weight Type: Current weight Estimated kilocalorie needs: [id number] Calorie Calculation Method: 20-25 kcals/kg Estimated protein [...] October 10, 2024 TIME: 2:23 PM Normal [facility] APTTon 10-09-2024 aPTT Coag (Bld) [Time] 30.8 s Normal 25.4 - 38.4 [facility] Comment on above: Performed By: #### 2 72708 #### [facility],[address] [place] [address] CBC + DIFFon 10-09-2024 Baso # 0.06 x10EE3/UL Normal 0.00 - 0.10 [facility] Comment on above: Performed By: #### 2 19885 #### [facility],[address] [place] [address] Basophils/100 WBC (Bld) 0.4 % Normal 0.0 - 2.0 [facility] Comment on above: Performed By: #### 2 79561 #### [facility],[address] [place] [address] 24717 CBC + DIFF Normal [facility] Comment on above: Result Comment: CBC- COMPLETE BLOOD COUNT Performed By: #### 2 78528 #### [facility],[address] [place] [address] 89666 EO # 0.11 x10EE3/UL Normal 0.00 - 0.50 [facility] Comment on above: Performed By: #### 2 79952 #### [facility],[address] [place] [address]34 Eosinophils/100 WBC (Bld) 0.6 % Normal 0.0 - 7.0 [facility] Comment on above: Performed By: #### 2 78594 #### [facility],[address] [place] [address] 47869 Erythrocyte distribution width (RBC) [Ratio] 16.5 % High 12.0 - 15.6 [facility] Comment on above: Performed By: #### 2 59680 #### [facility],[address] [place] [address] 01170 Hematocrit (Bld) [Volume fraction] 37.0 % Normal 34.0 - 46.0 [facility] Comment on above: Performed By: #### 2 12189 #### [facility],[address] [place] [address] 47598 Hemoglobin (Bld) [Mass/Vol] 12.3 g/dL Normal 12.0 - 16.0 [facility] Comment on above: Performed By: #### 2 74505 #### [facility],[address] [place] [address] Lymph # 3.19 x10EE3/UL High 0.80 - 2.80 [facility] Comment on above: Performed By: #### 2 02471 #### [facility],[address] [place], [place] [address] Lymphocytes/100 WBC (Bld) 18.0 % Low 20.0 - 45.0 [facility] Comment on above: Performed By: #### 2 25494 #### [facility],[address] [place] [address] 59721 MANUAL DIFF N/A Normal [facility] Comment on above: Performed By: #### 2 05744 #### [facility],[address] [place] [address] 73544 MCH (RBC) [Entitic mass] 25 pg Low 27 - 33 [facility] Comment on above: Performed By: #### 2 13912 #### [facility],[address] [place] [address] 97746 MCHC 33 X10 3 Normal 32 - 36 [facility] Comment on above: Performed By: #### 2 25528 #### [facility],[address] [place] [address] 90907 MCV (RBC) [Entitic vol] 76 fL Low 80 - 99 [facility] Comment on above: Performed By: #### 2 32038 #### [facility],[address] [place] [address] 89399 [place] # 1.03 x10EE3/UL High 0.20 - 1.00 [facility] Comment on above: Performed By: #### 2 28098 #### [facility],[address] [place] [address] 02034 MONOS % 5.8 % Normal 0.0 - 10.0 [facility] Comment on above: Performed By: #### 2 50777 #### [facility],[address] [place] [address] 17110 Morphology Stan (Bld) [Interp] N/A Normal [facility] Comment on above: Performed By: #### 2 98527 #### [facility],[address] [place] [address] 63431 Neut # 13.36 x10EE3/UL High 1.50 - 7.10 [facility] Comment on above: Performed By: #### 2 34089 #### [facility],[address] [place] [address] 92899 Neutrophils/100 WBC (Bld) 75.2 % Normal 46.0 - 76.0 [facility] Comment on above: Performed By: #### 2 27694 #### [facility],[address] [place] [address] 92874 PLATELET 657 x10EE3/UL High 150 - 450 [facility] Comment on above: Performed By: #### 2 30136 #### [facility],[address] [place] [address] 74599 Platelet mean volume (Bld) [Entitic vol] 7.7 fL Normal 6.6 - 10.5 [facility] Comment on above: Result Comment: AUTO MATED DIFFERENTIAL Performed By: #### 2 97096 #### [facility],[address] [place] [address] 82882 RBC 4.85 x 10EE6/UL Normal 4.10 - 5.30 [facility] Comment on above: Performed By: #### 2 06352 #### [facility],[address] [place] [address] 35225 WBC 17.8 x 10EE3/UL High 4.5 - 10.8 [facility] Comment on above: Performed By: #### 2 67252 #### [facility],[address] [place], [place] [address] CMP with eGFRon 10-09-2024 AGE 39 years Normal [facility] Comment on above: Performed By: #### 2 37875 #### [facility],[address] [place] [address] 10575 Albumin [Mass/Vol] 3.1 g/dL Low 3.4 - 5.0 [facility] Comment on above: Performed By: #### 2 48320 #### [facility],[address] [place] [address] Albumin/Globulin [Mass ratio] 0.5 {ratio} Low 0.9 - 1.6 [facility] Comment on above: Performed By: #### 2 57424 #### [facility],[address] [place] [address] 75173 ALK PHOS 175 U/L High 46 - 116 [facility] Comment on above: Performed By: #### 2 09281 #### [facility],[address] [place] [address] 29682 ALT [Catalytic activity/Vol] 65 U/L High 16 - 63 [facility] Comment on above: Performed By: #### 2 73272 #### [facility],[address] [place] [address] 06334 Anion gap [Moles/Vol] 18 mmol/L Normal 10 - 20 [facility] Comment on above: Performed By: #### 2 62308 #### [facility],[address] [place] [address] 57587 AST [Catalytic activity/Vol] 23 U/L Normal 13 - 39 [facility] Comment on above: Performed By: #### 2 52450 #### [facility],[address] [place] [address] 97714 B/C RATIO 12 ratio Normal 0 - 30 [facility] Comment on above: Performed By: #### 2 07602 #### [facility],[address] [place] [address] 70392 Bilirubin [Mass/Vol] 0.7 mg/dL Normal 0.2 - 1.0 [facility] Comment on above: Performed By: #### 2 42587 #### [facility],[address] [place] [address] 26353 Calcium [Mass/Vol] 9.7 mg/dL Normal 8.5 - 10.1 [facility] Comment on above: Performed By: #### 2 82230 #### [facility],[address] [place] [address] 78919 Chloride [Moles/Vol] 94 mmol/L Low 98 - 107 [facility] Comment on above: Performed By: #### 2 07025 #### [facility],[address] [place] [address] 13086 CMP with eGFR Normal [facility] Comment on above: Result Comment: COMP REHENSIVE METABOLIC PANEL Performed By: #### 2 88247 #### [facility],[address] [place] [address] 66613 CO2 [Moles/Vol] 25.4 mmol/L Normal 21.0 - 32.0 [facility] Comment on above: Performed By: #### 2 01778 #### [facility],[address] [place] [address] 01895 Creatinine [Mass/Vol] 1.72 mg/dL High 0.55 - 1.02 [facility] Comment on above: Performed By: #### 2 37114 #### [facility],[address] [place] [address] 77499 eGFR 33 ML/MINUTE Low 60 - 999 [facility] Comment on above: Performed By: #### 2 63613 #### [address] [address] eGFR(AA) 40 ML/MINUTE Low 60 - 999 [facility] Comment on above: Result Comment: ACCO RDING TO THE NATIONAL KIDNEY DISEASE EDUCATION PROGRAM(NKDE), A NORMAL eGFR IS A VALUE GREATER THAN OR EQUAL TO 60 ML/MIN/1.73 SQ METERS. CHRONIC KIDNEY DISEASE: <60mL/MIN/1.73 SQ METERS KIDNEY FAILURE: <15mL/MIN/1.73 SQ METERS THIS TEST SHOULD ONLY BE USED FOR PATIENTS 18 YEARS OF AGE AND OLDER. Performed By: #### 2 21693 #### [address] [address] Globulin (S) [Mass/Vol] 6.6 g/dL High 1.5 - 3.8 [facility] Comment on above: Performed By: #### 2 50158 #### [address] [address] Glucose [Mass/Vol] 245 mg/dL High 74 - 106 [facility] Comment on above: Performed By: #### 2 18549 #### [place] [id number] Potassium [Moles/Vol] 2.3 mmol/L Critically low 3.5 - 5.1 [facility] Comment on above: Result Comment: { CA LLED TO NATHANAEL REDMOND BY LMM @ 0937 { READ BACK BY NATHANAEL REDMOND RA 0951 Performed By: #### 2 30396 #### [address] [address] Protein [Mass/Vol] 9.7 g/dL High 6.4 - 8.2 [facility] Comment on above: Performed By: #### 2 26207 #### [place] [id number] Sodium [Moles/Vol] 135 mmol/L Low 136 - 145 [facility] Comment on above: Performed By: #### 2 46864 #### [facility],[address] [place] [address] 01362 Urea nitrogen [Mass/Vol] 21 mg/dL High 7 - 18 [facility] Comment on above: Performed By: #### 2 58566 #### [facility],[address] [place] [address] 67965 CONSULT PROGon 10-09-2024 CONSULT PROG HNO ID: [id number] Author: MORENA ALLEN RPh Service: Pharmacy Author [...] 10/09/20242039 11.1 08/22/20242024 12.[address] [facility] CT ABDOMEN/PELVIS WO 10-09 CT ABDOMEN/PELVIS WO [place] [address] Patient: DALY EVANS Phone#: : 1985 Age: 39 Gender: F Pt. Type: ER Account: [id number] Location: 2 Ordering: FARZANEH DELATORRE Exam Date: 10/09/2024/10:19 Family Phys: MAGGIE PUTNAM Charge Code: 871926 Physician: Camp Order #: [id number] Dose#: 13.40 mGy PROCEDURE: CT ABDOMEN/PELVIS WITHOUT CONTRAST COMPARISON: [facility], CT, ABDOMEN/PELVIS W CON, 09/17/2024, [...] 39 Gender: F Pt. Type: ER Account: [id number] Location: [facility] Ordering: FARZANEH DELATORRE Exam Date: 10/09/2024/10:19 Family Phys: MAGGIE INDY Charge Code: 602913 Physician: Camp Order #: [id number] Dose#: 13.40 mGy 2. No appreciable acute intra-abdominal or pelvic abnormality within the limits of a noncontrast exam. Dictated by: Alicia Maya MD on 10/09/2024 at 10:49 Approved by: Alicia Maya MD on 10/09/2024 at 10:57 Normal [facility] Creatinine + eGFR Pnl SerPlB ldon 10-09-2024 Creatinine and Glomerular filtration rate.predicted panel (S/P/Bld) 74 mL/min/1.73m??? Normal >=60 [facility] Comment on above: Order Comment: Speci men Type: BLOOD SPECIMEN Ordering Facility: [facility] Address: [address] [id number] Result Comment: Zeny mated Glomerular Filtration Rate [...] GFR. Performed By: #### 4 5066-8 #### [facility] CLIA [id number] [address] [place] [address] Creatinine and Glomerular fi ltration rate.predicted panel (S/P/Bld)on 10-09-2024 Creatinine [Mass/Vol] 0.99 mg/dL High 0.51-0.95 [facility] Comment on above: Order Comment: Speci men Type: BLOOD SPECIMEN Ordering Facility: [facility] Address: [address] [place] [address] Result Comment: Marissa ents receiving either N-Acetylcysteine (NAC) or Metamizole prior to venipuncture, may have falsely depressed results. Performed By: #### 4 5066-8 #### [facility] CLIA [id number] [address] [place] [address] STATES OF [facility] ED MED ADMINISTRATION DETAIL on 10-09-2024 ED MED ADMINISTRATION DETAIL Stamp Presser Medication Administration Record [address] [address] [id number] 10/09/2024 Patient: DALY EVANS Sex: Female : 1985 Age: 39y MEASUREMENTS: Wt: 90.7 kg, Ht/Jean-Paul: 67.0 in, BMI: 31.32 ALLERGIES: [place] Medication Ordered Medication Administration Date/Time Zofran IVP [...] 10:31 Ariella Santamaria R.N. 1 of 4 [place] Medication Ordered Medication Administration Date/Time Reglan IVP [...] 13:35 Ariella Santamaria R.N. 2 of 4 [place] Medication Ordered Medication Administration Date/Time Haloperidol IVP [...] 13:29 Johnathan (more content not included)... Normal [facility] ED NURSES CLINICAL NOTEon ED NURSES CLINICAL NOTE Nurse Narrative Nurse Clinical Narrative [address] [address] [id number] 10/09/2024 08:13:00 Patient: DALY EVANS Sex: Female : 1985 Age: 39y Disposition: Transfer to [facility] Disposition Decision Time: 12:52 10/09/2024 Departure Time: 15:44 10/09/2024 TRIAGE Arrived by EMS. Historian: (jail records and patient). Primary physician (Krystian). Triage time: 08:21 10/09/2024. Acuity: LEVEL 2. Chief Complaint: ACCIDENTAL INGESTION (Pt received 115mg of methadone from a nurse at the jail that was not prescribed to her.). This [...] subcutaneous syringe: twice a day. (give per [place] MAR dose of 0.95ml) -- 09:10/09/24 CHARLY [...] six hours as needed. -- 09:10/09/24 CHARLY Vdiales R.N. acetaminophen 325 mg chewable tablet: 1 [...] R.N. 2 of 8 Nurse Narrative Allergies: [place] -- 08:31 10/09/24 [place] Jessica Vidales R.N. Home Medications/Allergy Information Source: patient, jail record -- 08:28 10/09/24 CHARLY Vidales R.N. Problems: Depression -- 08:31 10/09/24 CHALRY Vidales R.N. Diabetes Mellitus -- 08:31 10/09/24 [...] -- 09:02 (more content not included)... Normal [facility] ED ORDER SHEET (CPOE ONLY)on 10-09-2024 ED ORDER SHEET (CPOE ONLY) Order Sheet Order Sheet [address] [address] [id number] 10/09/2024 Patient: DALY EVANS Sex: Female : 1985 Age: 39y MEASUREMENTS: Wt: 90.7 kg, Ht/Jean-Paul: 67.0 in, BMI: 31.32 ALLERGIES: [place] MEDICATION/IV/DRIP/FLUID ORDERS Order Description Priority Entered Acknowledged [...] l Farzaneh Delatorre D.O. 10/09/2024 10/09/2024 IVPB [id number] mEq at 50 mL/hr Ariella Sehehan, (NOW x1, HIGH ALERT R.N. R.N. MEDICATION) potassium 14:42 10/09/2024 Cancelled: Patient Off Unit chloride(K-Philip)20mEq/100m l Farzaneh Delatorre D.O. 16:22 EDT Ariella Santamaria R.N. IVPB [id number] mEq at 50 mL/hr (NOW x1, HIGH [...] Harrington, Na (more content not included)... Normal [facility] ED PHYSICIAN CLINICAL REPORT on 10-09-2024 ED PHYSICIAN CLINICAL REPORT Narrative Physician Clinical Narrative [address] [place] [address] [id number] 10/09/2024 08:13:00 Patient: DALY EVANS Sex: Female : 1985 Age: 39y Disposition: Transfer to [facility] Disposition Decision Time: 12:52 10/09/2024 Measurements Wt: [...] subcutaneous syringe: twice a day. (give per [place] MAR dose of 0.95ml) escitalopram 20 mg [...] piggyback: 1500 mg twice a day. Allergies: [facility] Medications/Allergy Information Source: patient, jail record - Jessica Vidales R.N., 10/09/2024 08:28 [...] 450 Fi (more content not included)... Normal [facility] ED SUPER BILLon 10-09-2024 ED SUPER BILL [facility] [address] [place] [address] [id number] 10/09/2024 Patient: DALY EVANS Sex: Female : 1985 Age: 39y Facility Professional Category Item Description Code Code Quantity Fee Total Nurse/E/M EMERGENCY 817086 1 $0.00 $0.00 DEPT VISIT HIGH SEVERITYFUNCJ (42088-33) Nurse/IV/IM/Infusions Drip/IVPB initial 651506 1 $0.00 $0.00 (22324) Nurse/IV/IM/Infusions Drip/IVPB seq 442493 2 $0.00 $0.00 (30090) Nurse/IV/IM/Infusions Hydration 114717 1 $0.00 $0.00 additional hour (63641) Nurse/IV/IM/Infusions IVP additional 438727 2 $0.00 $0.00 push (37792) Nurse/IV/IM/Infusions IVP initial (44749) 079914 1 $0.00 $0.00 Grand $0.00 Total Providers [...] Gastrointestinal hemorrhage, unspecified 2 of 2 Normal [facility] ED VISIT SUMMARYon ED VISIT SUMMARY Visit Overview Visit Overview [address] [address] [id number] 10/09/2024 Patient: DALY EVANS Sex: Female : 1985 Age: 39y 10/09/2024 04:30 PM EDT ED Arrival:08:13 10/09/2024 EDT Status:not Recent Travel:no Language:eng Adv Directive: Isolation Status: Ethnicity:N Fall Risk:risk Infectious Disease Exposure:no Measurements:5'7 / 170.2 Self-Harm Status:risk Sepsis Screen:negative cm 200.0 lb / 90.7 kg Chief Complaint:ACCIDENTAL INGESTION, ([place]), (n/v; dizziness), and (Pt received 115mg of methadone from a nurse at the jail that was not prescribed to her. ) ALLERGIES [place] HOME MEDICATIONS acetaminophen 325 mg chewable tablet: [...] MINOR GI BLEED 4 of 4 Normal [facility] ED VITALS FLOW SHEETon 10-09 ED VITALS FLOW SHEET Vitals Vital Sign Flow Sheet [facility] [address] [place] [address] [id number] 10/09/2024 Patient: DALY EVANS Sex: Female : [...] 10/09/2024 111 96% 4 of 4 Normal [facility] HISTORY PHYSICALon HISTORY PHYSICAL HNO ID: [id number] Author: ROSA MARIA BULLOCK MD Service: General [...] Lovenox, status post colostomy who presented to [facility] ED for accidental overdose. Patient resides in a nursing facility, approximately 1 month ago was taken to [facility] for colostomy after developing bowel obstruction. During [...] suicide (HCC) polysubstance Bipolar depression (HCC) The [facility] Camelia Joyman Gestational diabetes mellitus in ([facility]) Impaired fasting blood sugar 06/2015 a1c 5.7% [...] Patient ta (more content not included)... Normal [facility] MAGNESIUMon 10-09-2024 Magnesium [Mass/Vol] 1.5 mg/dL Low 1.8 - 2.4 [facility] Comment on above: Performed By: #### 2 62279 #### [facility],[address] [place], [place] [address] OCCULT BLOOD GASTRICon 10-09 OCCULT BLOOD GASTRIC Normal [facility] Comment on above: Result Comment: { OC CULT BLOOD POSITIVE (NEGATIVE ) { SPECIMEN GASTRIC ASPIRATE Performed By: #### 2 48296 #### [facility],[address] [place] [address]83 pH (Bld) 4 [pH] Normal [facility] Comment on above: Performed By: #### 2 44791 #### [facility],[address] [place] [address] PROTHROMBIN TIME AND INRon 0 10-09-2024 INR Coag (PPP) [Relative time] 1.3 {INR} High 0.8 - 1.2 [facility] Comment on above: Result Comment: T [...] MECHANICAL HEART VALVES Performed By: #### 2 11431 #### [facility],[address] [place], [place] [address] PROTHROMBIN TIME AND INR Normal [facility] Comment on above: Result Comment: PROT HROMBIN TIME AND INR Performed By: #### 2 42863 #### [facility],[address] [place], [place] [address] PT-COUMADIN 14.2 sec High 9.3 - 14.1 [facility] Comment on above: Performed By: #### 2 77877 #### [facility],[address] [place], [place] [address] TROPONINon 10-09-2024 HS TROPONIN 6.2 pg/mL Normal 0.0 - 51.4 [facility] Comment on above: Performed By: #### 2 82093 #### [facility],[address] [place], [place] [address] US KIDNEY/BLADDERon 10-10-19 25 US KIDNEY/BLADDER * * *Final Report* * * DATE OF EXAM: Oct 09 2024 7:04PM [facility] 1055 - US KIDNEY/BLADDER / [...] the bladder lumen; please correlate with urinalysis. [place] Tester: NANCY Transcribe Date/Time: Oct 10 2024 4:59A Dictated by : CHRISTIAN LEE MD This examination was interpreted and the report reviewed and electronically signed by: CHRISTIAN LEE MD on Oct 10 2024 5:02AM EST [id number] Normal [facility] Vancomycin [place] SerPl-mCncon 10-09-2024 Vancomycin random [Mass/Vol] 11.1 ug/mL Normal 10.0-25.0 [facility] Comment on above: Order Comment: Speci men Type: BLOOD SPECIMEN Ordering Facility: [facility] Address: [address] [place] [address] Result Comment: Refe rence ranges and high/low indicator flags are provided as general guidelines only. The treating physician must determine appropriate target levels/dosing based on the specific clinical situation. Performed By: #### 4 091-5 #### [facility] CLIA [id number] [facility] [place] [address] [place] CBC + DIFFon 10-04-2024 Baso # 0.02 x10EE3/UL Normal 0.00 - 0.10 [facility] Comment on above: Performed By: #### 2 63411 #### [address] [address] Basophils/100 WBC (Bld) 0.3 % Normal 0.0 - 2.0 [facility] Comment on above: Performed By: #### 2 23806 #### [facility],[address] [place] [address] CBC + DIFF Normal [facility] Comment on above: Result Comment: CBC- COMPLETE BLOOD COUNT Performed By: #### 2 36389 #### [facility],[address] [place] [address] EO # 0.16 x10EE3/UL Normal 0.00 - 0.50 [facility] Comment on above: Performed By: #### 2 45846 #### [facility],[address] [place] [address] Eosinophils/100 WBC (Bld) 2.7 % Normal 0.0 - 7.0 [facility] Comment on above: Performed By: #### 2 87678 #### [facility],[address] [place], [place] [address] Erythrocyte distribution width (RBC) [Ratio] 15.9 % High 12.0 - 15.6 [facility] Comment on above: Performed By: #### 2 42454 #### [facility],[address] [place], [place] [address] Hematocrit (Bld) [Volume fraction] 29.2 % Low 34.0 - 46.0 [facility] Comment on above: Performed By: #### 2 30140 #### [facility],[address] [place] [address] Hemoglobin (Bld) [Mass/Vol] 9.7 g/dL Low 12.0 - 16.0 [facility] Comment on above: Performed By: #### 2 37215 #### [facility],[address] [place] [address] Lymph # 2.40 x10EE3/UL Normal 0.80 - 2.80 [facility] Comment on above: Performed By: #### 2 74432 #### [facility],[address] [place] [address] Lymphocytes/100 WBC (Bld) 39.2 % Normal 20.0 - 45.0 [facility] Comment on above: Performed By: #### 2 48720 #### [facility],[address] [place] [address] MANUAL DIFF N/A Normal [facility] Comment on above: Performed By: #### 2 50598 #### [facility],[address] [place] [address] MCH (RBC) [Entitic mass] 26 pg Low 27 - 33 [facility] Comment on above: Performed By: #### 2 67499 #### [facility],[address] [place] [address] MCHC 33 X10 3 Normal 32 - 36 [facility] Comment on above: Performed By: #### 2 81436 #### [facility],[address] [place] [address] MCV (RBC) [Entitic vol] 77 fL Low 80 - 99 [facility] Comment on above: Performed By: #### 2 44905 #### [facility],[address] [place] [address] [place] # 0.56 x10EE3/UL Normal 0.20 - 1.00 [facility] Comment on above: Performed By: #### 2 61168 #### [facility],[address] [place] [address] MONOS % 9.2 % Normal 0.0 - 10.0 [facility] Comment on above: Performed By: #### 2 26992 #### [facility],[address] [place] [address] Morphology Stan (Bld) [Interp] N/A Normal [facility] Comment on above: Performed By: #### 2 15120 #### [facility],[address] [place] [address] Neut # 2.99 x10EE3/UL Normal 1.50 - 7.10 [facility] Comment on above: Performed By: #### 2 52516 #### [facility],[address] [place] [address] Neutrophils/100 WBC (Bld) 48.7 % Normal 46.0 - 76.0 [facility] Comment on above: Performed By: #### 2 43888 #### [facility],[address] [place], [place] [address] PLATELET 504 x10EE3/UL High 150 - 450 [facility] Comment on above: Performed By: #### 2 98717 #### [facility],[address] [place] [address] Platelet mean volume (Bld) [Entitic vol] 7.8 fL Normal 6.6 - 10.5 [facility] Comment on above: Result Comment: AUTO MATED DIFFERENTIAL Performed By: #### 2 34665 #### [place] [address] RBC 3.79 x 10EE6/UL Low 4.10 - 5.30 [facility] Comment on above: Performed By: #### 2 39376 #### [facility],[address] [place], [place] [address] WBC 6.1 x 10EE3/UL Normal 4.5 - 10.8 [facility] Comment on above: Performed By: #### 2 56428 #### [facility],[address] [place] [address] VANCOMYCIN TROUGHon 10-04-19 25 VANCOMYCIN,TROUGH 11.5 ug/mL High 5.0 - 10.0 [facility] Comment on above: Performed By: #### 2 08596 ####[facility],[address] [place], [place] [address] CBC W Ordered Manual Differe ntial panel (Bld)on 10-02-2024 Basophils (Bld) [#/Vol] 0.04 10*3/uL NINF [facility] Basophils/100 WBC (Bld) 0.5 % [facility] Differential cell count method Nom (Bld) Auto [facility] Eosinophils (Bld) [#/Vol] 0.14 10*3/uL [facility] Eosinophils/100 WBC (Bld) 1.9 % [facility] Erythrocyte distribution width (RBC) [Ratio] 15.7 % High 11.5 - 15.0 % [facility] Hematocrit (Bld) [Volume fraction] 30.2 % Low 36.0 - 46.0 % [facility] Hemoglobin (Bld) [Mass/Vol] 9.2 g/dL Low 11.5 - 15.5 g/dL [facility] Immature granulocytes (Bld) [#/Vol] [facility] Immature granulocytes/100 WBC (Bld) 0.3 % [facility] Interpretation and review of laboratory results Abnormal [facility] Lymphocytes (Bld) [#/Vol] 2.27 10*3/uL [facility] Lymphocytes/100 WBC (Bld) 30.5 % [facility] MCH (RBC) [Entitic mass] 24.2 pg Low 26.0 - 34.0 pg [facility] MCHC (RBC) [Mass/Vol] 30.5 g/dL 30.5 - 36.0 g/dL [facility] MCV (RBC) [Entitic vol] 79.5 fL Low 80.0 - 100.0 fL [facility] Monocytes (Bld) [#/Vol] 0.53 10*3/uL [facility] Monocytes/100 WBC (Bld) 7.1 % [facility] Neutrophils (Bld) [#/Vol] 4.44 10*3/uL [facility] Neutrophils/100 WBC (Bld) 59.7 % [facility] Nucleated RBC (Bld) [#/Vol] [facility] Nucleated RBC/100 WBC (Bld) [Ratio] 0 % /100 WBC [facility] Platelet mean volume (Bld) [Entitic vol] 9 fL 9.0 - 12.7 fL [facility] Platelets (Bld) [#/Vol] 443 10*3/uL High [facility] RBC (Bld) [#/Vol] 3.8 10*6/uL Low 3.90 - 5.2 0 m/uL [facility] WBC (Bld) [#/Vol] 7.44 10*3/uL [facility] This is an appended report. These results have been appended to a previously verified report. [facility] IMMUNOGLOBULINS,IGG,IGA,IGMo n 10-02-2024 IgA [Mass/Vol] 324 mg/dL 70 - 400 mg/dL [facility] IgG [Mass/Vol] 2708 mg/dL High 700 - 1600 mg/dL [facility] IgM [Mass/Vol] 99 mg/dL 40 - 230 mg/dL [facility] Interpretation and review of laboratory results Abnormal [facility] LMW ANTI XA ASSAYOrdered By: Yoseph Urban on 10-02-2024 LMW Heparin Qn (PPP) 0.49 High [facility] Comment on above: Therapeutic Range: 0 .5 to 1.1 IU/mL ([facility] 1998: 122:799 to 807). LMW Heparin Qn (PPP)Ordered By: Yoseph Urban on 10-02-2024 Interpretation and review of laboratory results Abnormal [facility] Frozen Plasma Aliquo t [facility] PATHOLOGIST INTERPRETATION C BC/DIFFOrdered By: Jaden Sr on 10-02-2024 [employer] Metal Car Operator review Stan (Unsp spec) [Interp] No review performed. [facility] Pathologist Interpretation, CBCDIF The Pathologist Interpretation on this sample was cancelled because the hematology analyzer did not flag any parameters as requiring manual review. If there is a specific clinical concern for which you would like a pathologist to review the blood smear, please call Lab Client Services within 28 days. Account Credited [facility] CMP with eGFRon 10-01-2024 AGE 39 years Normal [facility] Comment on above: Performed By: #### 2 92441 ####[facility],[address] [place] [address] Albumin [Mass/Vol] 1.8 g/dL Low 3.4 - 5.0 [facility] Comment on above: Performed By: #### 2 74327 ####[address] [address] Albumin/Globulin [Mass ratio] 0.4 {ratio} Low 0.9 - 1.6 [facility] Comment on above: Performed By: #### 2 26834 ####[facility],[address] [place] [address] ALK PHOS 114 U/L Normal 46 - 116 [facility] Comment on above: Performed By: #### 2 79745 ####[facility],[address] [place], [place] [address] ALT [Catalytic activity/Vol] 79 U/L High 16 - 63 [facility] Comment on above: Performed By: #### 2 31161 ####[facility],[address] [place] [address] Anion gap [Moles/Vol] 10 mmol/L Normal 10 - 20 [facility] Comment on above: Performed By: #### 2 13444 ####[facility],[address] [place], [place] [address] AST [Catalytic activity/Vol] 34 U/L Normal 13 - 39 [facility] Comment on above: Performed By: #### 2 19462 ####[facility],[address] [place], [place] [address] B/C RATIO 21 ratio Normal 0 - 30 [facility] Comment on above: Performed By: #### 2 60554 ####[facility],[address] [place] [address] Bilirubin [Mass/Vol] 0.5 mg/dL Normal 0.2 - 1.0 [facility] Comment on above: Performed By: #### 2 05408 ####[facility],[address] [place], [place] [address] Calcium [Mass/Vol] 7.8 mg/dL Low 8.5 - 10.1 [facility] Comment on above: Performed By: #### 2 09944 ####[facility],[address] [place], [place] [address] Chloride [Moles/Vol] 105 mmol/L Normal 98 - 107 [facility] Comment on above: Performed By: #### 2 30900 ####[facility],[address] [place], [place] [address] CMP with eGFR Normal [facility] Comment on above: Result Comment: COMP REHENSIVE METABOLIC PANEL Performed By: #### 2 63690 ####[facility],[address] [place] [address] CO2 [Moles/Vol] 27.9 mmol/L Normal 21.0 - 32.0 [facility] Comment on above: Performed By: #### 2 24809 ####[facility],[address] [place] [address] Creatinine [Mass/Vol] 0.71 mg/dL Normal 0.55 - 1.02 [facility] Comment on above: Performed By: #### 2 52613 ####[facility],[address] [place] [address] GFR/1.73 sq M.predicted among non-blacks MDRD (S/P/Bld) [Vol rate/Area] mL/min/{1.73_m2} Normal 60 - 999 [facility] Comment on above: Performed By: #### 2 77907 ####[facility],[address] [place] [address] Result Comment: ACCO RDING TO THE NATIONAL KIDNEY DISEASE EDUCATION PROGRAM(NKDE), A NORMAL eGFR IS A VALUE GREATER THAN OR EQUAL TO 60 ML/MIN/1.73 SQ METERS. CHRONIC KIDNEY DISEASE: <60mL/MIN/1.73 SQ METERS KIDNEY FAILURE: <15mL/MIN/1.73 SQ METERS THIS TEST SHOULD ONLY BE USED FOR PATIENTS 18 YEARS OF AGE AND OLDER. Globulin (S) [Mass/Vol] 5.1 g/dL High 1.5 - 3.8 [facility] Comment on above: Performed By: #### 2 42632 ####[facility],[address] [place], [place] [address] Glucose [Mass/Vol] 170 mg/dL High 74 - 106 [facility] Comment on above: Performed By: #### 2 81067 ####[facility],[address] [place], [place] [address] Potassium [Moles/Vol] 3.7 mmol/L Normal 3.5 - 5.1 [facility] Comment on above: Performed By: #### 2 88892 ####[facility],[address] [place] [address]36 Protein [Mass/Vol] 6.9 g/dL Normal 6.4 - 8.2 [facility] Comment on above: Performed By: #### 2 93755 ####[facility],[address] [place] [address] Sodium [Moles/Vol] 139 mmol/L Normal 136 - 145 [facility] Comment on above: Performed By: #### 2 14552 ####[facility],[address] [place], [place] [address] Urea nitrogen [Mass/Vol] 15 mg/dL Normal 7 - 18 [facility] Comment on above: Performed By: #### 2 41110 ####[facility],[address] [place] [address]245 MAGNESIUMon 10-01-2024 Magnesium [Mass/Vol] 1.8 mg/dL Normal 1.8 - 2.4 [facility] Comment on above: Performed By: #### 2 07369 #### [facility],[address] [place] [address] 44363 PHOSPHORUSon 10-01-2024 Phosphate [Mass/Vol] 3.6 mg/dL Normal 2.6 - 4.7 [facility] Comment on above: Performed By: #### 2 27296 ####[facility],[address] [place] [address] 80904 VANCOMYCIN TROUGHon 10-02-19 25 VANCOMYCIN,TROUGH 10.8 ug/mL High 5.0 - 10.0 [facility] Comment on above: Performed By: #### 2 97936 ####[facility],[address] [place] [address] 43220 VANCOMYCIN TROUGHon 09-29-19 25 VANCOMYCIN,TROUGH 9.6 ug/mL Normal 5.0 - 10.0 [facility] Comment on above: Performed By: #### 2 65609 #### [facility],[address] [place] [address] CBC + DIFFon 09-27-2024 Baso # 0.03 x10EE3/UL Normal 0.00 - 0.10 [facility] Comment on above: Performed By: #### 2 21603 ####[facility],[address] [place], [place] [address] Basophils/100 WBC (Bld) 0.5 % Normal 0.0 - 2.0 [facility] Comment on above: Performed By: #### 2 28712 ####[facility],[address] [place] [address] CBC + DIFF Normal [facility] Comment on above: Result Comment: CBC- COMPLETE BLOOD COUNT Performed By: #### 2 31434 ####[facility],[address] [place] [address] EO # 0.16 x10EE3/UL Normal 0.00 - 0.50 [facility] Comment on above: Performed By: #### 2 07371 ####[facility],[address] [place], [place] [address] Eosinophils/100 WBC (Bld) 2.4 % Normal 0.0 - 7.0 [facility] Comment on above: Performed By: #### 2 90182 ####[facility],[address] [place], [place] [address] Erythrocyte distribution width (RBC) [Ratio] 16.7 % High 12.0 - 15.6 [facility] Comment on above: Performed By: #### 2 55866 ####[facility],[address] [place] [address] Hematocrit (Bld) [Volume fraction] 27.6 % Low 34.0 - 46.0 [facility] Comment on above: Performed By: #### 2 65482 ####[facility],[address] [place] [address] 50094 Hemoglobin (Bld) [Mass/Vol] 8.8 g/dL Low 12.0 - 16.0 [facility] Comment on above: Performed By: #### 2 39053 ####[facility],[address] [place] [address] 21884 Lymph # 1.44 x10EE3/UL Normal 0.80 - 2.80 [facility] Comment on above: Performed By: #### 2 67547 ####[facility],[address] [place] [address] 78871 Lymphocytes/100 WBC (Bld) 21.3 % Normal 20.0 - 45.0 [facility] Comment on above: Performed By: #### 2 78245 ####[facility],[address] [place], [place] [address] MANUAL DIFF N/A Normal [facility] Comment on above: Performed By: #### 2 15176 ####[facility],[address] [place] [address] 17301 MCH (RBC) [Entitic mass] 25 pg Low 27 - 33 [facility] Comment on above: Performed By: #### 2 96793 ####[facility],[address] [place] [address] 92761 MCHC 32 X10 3 Normal 32 - 36 [facility] Comment on above: Performed By: #### 2 71250 ####[facility],[address] [place] [address] 43979 MCV (RBC) [Entitic vol] 79 fL Low 80 - 99 [facility] Comment on above: Performed By: #### 2 43325 ####[facility],[address] [place] [address] 66556 [place] # 0.61 x10EE3/UL Normal 0.20 - 1.00 [facility] Comment on above: Performed By: #### 2 14060 ####[facility],[address] [place] [address] 27921 MONOS % 9.1 % Normal 0.0 - 10.0 [facility] Comment on above: Performed By: #### 2 88564 ####[facility],[address] [place] [address] 97422 Morphology Stan (Bld) [Interp] N/A Normal [facility] Comment on above: Performed By: #### 2 28658 ####[facility],[address] [place] [address] 14686 Neut # 4.51 x10EE3/UL Normal 1.50 - 7.10 [facility] Comment on above: Performed By: #### 2 02845 ####[facility],[address] [place] [address] 03253 Neutrophils/100 WBC (Bld) 66.8 % Normal 46.0 - 76.0 [facility] Comment on above: Performed By: #### 2 03198 ####[facility],[address] [place] [address] 63558 PLATELET 543 x10EE3/UL High 150 - 450 [facility] Comment on above: Performed By: #### 2 60062 ####[facility],[address] [place] [address] 86808 Platelet mean volume (Bld) [Entitic vol] 7.9 fL Normal 6.6 - 10.5 [facility] Comment on above: Result Comment: AUTO MATED DIFFERENTIAL Performed By: #### 2 10816 ####[facility],[address] [place] [address] 87390 RBC 3.51 x 10EE6/UL Low 4.10 - 5.30 [facility] Comment on above: Performed By: #### 2 66060 ####[facility],[address] [place] [address] 20039 WBC 6.8 x 10EE3/UL Normal 4.5 - 10.8 [facility] Comment on above: Performed By: #### 2 04397 ####[facility],[address] [place] [address] 80480 CMP with eGFRon 09-27-2024 AGE 39 years Normal [facility] Comment on above: Performed By: #### 2 57912 ####[facility],[address] [place] [address] 92823 Albumin [Mass/Vol] 1.8 g/dL Low 3.4 - 5.0 [facility] Comment on above: Performed By: #### 2 82639 ####[facility],[address] [place] [address] 26303 Albumin/Globulin [Mass ratio] 0.3 {ratio} Low 0.9 - 1.6 [facility] Comment on above: Performed By: #### 2 09997 ####[facility],[address] [place] [address] 51630 ALK PHOS 131 U/L High 46 - 116 [facility] Comment on above: Performed By: #### 2 74394 ####[facility],[address] [place] [address] 68931 ALT [Catalytic activity/Vol] 90 U/L High 16 - 63 [facility] Comment on above: Performed By: #### 2 51691 ####[facility],[address] [place] [address] 25999 Anion gap [Moles/Vol] 10 mmol/L Normal 10 - 20 [facility] Comment on above: Performed By: #### 2 26401 ####[facility],[address] [place] [address] 66675 AST [Catalytic activity/Vol] 40 U/L High 13 - 39 [facility] Comment on above: Performed By: #### 2 10257 ####[facility],[address] [place] [address] 85364 B/C RATIO 20 ratio Normal 0 - 30 [facility] Comment on above: Performed By: #### 2 32349 ####[facility],[address] [place] [address] 76719 Bilirubin [Mass/Vol] 0.5 mg/dL Normal 0.2 - 1.0 [facility] Comment on above: Performed By: #### 2 51514 ####[facility],[address] [place] [address] 39820 Calcium [Mass/Vol] 8.1 mg/dL Low 8.5 - 10.1 [facility] Comment on above: Performed By: #### 2 20421 ####[facility],[address] [place] [address] 63651 Chloride [Moles/Vol] 102 mmol/L Normal 98 - 107 [facility] Comment on above: Performed By: #### 2 27194 ####[facility],[address] [place] [address] 83394 CMP with eGFR Normal [facility] Comment on above: Result Comment: COMP REHENSIVE METABOLIC PANEL Performed By: #### 2 02194 ####[facility],[address] [place] [address] 90937 CO2 [Moles/Vol] 26.0 mmol/L Normal 21.0 - 32.0 [facility] Comment on above: Performed By: #### 2 64613 ####[facility],[address] [place] [address] 57630 Creatinine [Mass/Vol] 0.71 mg/dL Normal 0.55 - 1.02 [facility] Comment on above: Performed By: #### 2 58599 ####[facility],[address] [place] [address] 32952 GFR/1.73 sq M.predicted among non-blacks MDRD (S/P/Bld) [Vol rate/Area] mL/min/{1.73_m2} Normal 60 - 999 [facility] Comment on above: Performed By: #### 2 31089 ####[facility],[address] [place] [address] 68399 Result Comment: ACCO RDING TO THE NATIONAL KIDNEY DISEASE EDUCATION PROGRAM(NKDE), A NORMAL eGFR IS A VALUE GREATER THAN OR EQUAL TO 60 ML/MIN/1.73 SQ METERS. CHRONIC KIDNEY DISEASE: <60mL/MIN/1.73 SQ METERS KIDNEY FAILURE: <15mL/MIN/1.73 SQ METERS THIS TEST SHOULD ONLY BE USED FOR PATIENTS 18 YEARS OF AGE AND OLDER. Globulin (S) [Mass/Vol] 5.3 g/dL High 1.5 - 3.8 [facility] Comment on above: Performed By: #### 2 02002 ####[address] [address] Glucose [Mass/Vol] 82 mg/dL Normal 74 - 106 [facility] Comment on above: Performed By: #### 2 34334 ####[address] [address] Potassium [Moles/Vol] 3.6 mmol/L Normal 3.5 - 5.1 [facility] Comment on above: Performed By: #### 2 26306 ####[address] [address] Protein [Mass/Vol] 7.1 g/dL Normal 6.4 - 8.2 [facility] Comment on above: Performed By: #### 2 48326 ####[address] [address] Sodium [Moles/Vol] 134 mmol/L Low 136 - 145 [facility] Comment on above: Performed By: #### 2 87158 ####[address] [address] Urea nitrogen [Mass/Vol] 14 mg/dL Normal 7 - 18 [facility] Comment on above: Performed By: #### 2 73588 ####[address] [address] MAGNESIUMon 09-27-2024 Magnesium [Mass/Vol] 1.9 mg/dL Normal 1.8 - 2.4 [facility] Comment on above: Performed By: #### 2 08528 #### [facility],[address] [place] [address] 13400 BMP with eGFRon 09-25-2024 AGE 39 years Normal [facility] Comment on above: Performed By: #### 2 38213 ####[facility],[address] [place] [address] Anion gap [Moles/Vol] 14 mmol/L Normal 10 - 20 [facility] Comment on above: Performed By: #### 2 95366 ####[facility],[address] [place] [address] 42151 BMP with eGFR Normal [facility] Comment on above: Result Comment: BASI C METABOLIC PANEL Performed By: #### 2 37397 ####[facility],[address] [place], [place] [address] Calcium [Mass/Vol] 8.5 mg/dL Normal 8.5 - 10.1 [facility] Comment on above: Performed By: #### 2 82982 ####[facility],[address] [place], [place] [address] Chloride [Moles/Vol] 101 mmol/L Normal 98 - 107 [facility] Comment on above: Performed By: #### 2 47353 ####[facility],[address] [place] [address] 43473 CO2 [Moles/Vol] 23.2 mmol/L Normal 21.0 - 32.0 [facility] Comment on above: Performed By: #### 2 86931 ####[facility],[address] [place] [address] 62878 Creatinine [Mass/Vol] 0.87 mg/dL Normal 0.55 - 1.02 [facility] Comment on above: Performed By: #### 2 40451 ####[place] [address] GFR/1.73 sq M.predicted among non-blacks MDRD (S/P/Bld) [Vol rate/Area] mL/min/{1.73_m2} Normal 60 - 999 [facility] Comment on above: Performed By: #### 2 84847 ####[place] [address] Result Comment: ACCO RDING TO THE NATIONAL KIDNEY DISEASE EDUCATION PROGRAM(NKDE), A NORMAL eGFR IS A VALUE GREATER THAN OR EQUAL TO 60 ML/MIN/1.73 SQ METERS. CHRONIC KIDNEY DISEASE: <60mL/MIN/1.73 SQ METERS KIDNEY FAILURE: <15mL/MIN/1.73 SQ METERS THIS TEST SHOULD ONLY BE USED FOR PATIENTS 18 YEARS OF AGE AND OLDER. Glucose [Mass/Vol] 89 mg/dL Normal 74 - 106 [facility] Comment on above: Performed By: #### 2 61990 ####[place] [id number] Potassium [Moles/Vol] 4.6 mmol/L Normal 3.5 - 5.1 [facility] Comment on above: Performed By: #### 2 14091 ####[place] [id number] Sodium [Moles/Vol] 134 mmol/L Low 136 - 145 [facility] Comment on above: Performed By: #### 2 09224 ####[place] [id number] Urea nitrogen [Mass/Vol] 11 mg/dL Normal 7 - 18 [facility] Comment on above: Performed By: #### 2 67829 ####[address] [address] VANCOMYCIN TROUGHon 09-26-19 25 VANCOMYCIN,TROUGH 4.9 ug/mL Low 5.0 - 10.0 [facility] Comment on above: Performed By: #### 2 00450 #### [place] [address],[place] [address] VANCOMYCIN,TROUGH 5.0 ug/mL Normal 5.0 - 10.0 [facility] Comment on above: Performed By: #### 2 07328 #### [facility],[address] [place] [address] 61169 CBC + DIFFon 09-24-2024 Baso # 0.07 x10EE3/UL Normal 0.00 - 0.10 [facility] Comment on above: Performed By: #### 2 57572 ####[facility],[address] [place] [address] 95336 Basophils/100 WBC (Bld) 0.6 % Normal 0.0 - 2.0 [facility] Comment on above: Performed By: #### 2 66294 ####[facility],[address] [place], [place] [address] CBC + DIFF Normal [facility] Comment on above: Result Comment: CBC- COMPLETE BLOOD COUNT Performed By: #### 2 18443 ####[facility],[address] [place] [address] 08383 EO # 0.24 x10EE3/UL Normal 0.00 - 0.50 [facility] Comment on above: Performed By: #### 2 93899 ####[facility],[address] [place] [address] 57294 Eosinophils/100 WBC (Bld) 1.9 % Normal 0.0 - 7.0 [facility] Comment on above: Performed By: #### 2 69949 ####[facility],[address] [place] [address] 30644 Erythrocyte distribution width (RBC) [Ratio] 17.1 % High 12.0 - 15.6 [facility] Comment on above: Performed By: #### 2 25482 ####[facility],[address] [place] [address] 39725 Hematocrit (Bld) [Volume fraction] 26.8 % Low 34.0 - 46.0 [facility] Comment on above: Performed By: #### 2 16698 ####[facility],[address] [place] [address] Hemoglobin (Bld) [Mass/Vol] 8.6 g/dL Low 12.0 - 16.0 [facility] Comment on above: Performed By: #### 2 36808 ####[facility],[address] [place] [address] Lymph # 2.14 x10EE3/UL Normal 0.80 - 2.80 [facility] Comment on above: Performed By: #### 2 19839 ####[facility],[address] [place] [address] Lymphocytes/100 WBC (Bld) 17.2 % Low 20.0 - 45.0 [facility] Comment on above: Performed By: #### 2 89550 ####[facility],[address] [place] [address] MANUAL DIFF N/A Normal [facility] Comment on above: Performed By: #### 2 43678 ####[facility],[address] [place] [address] MCH (RBC) [Entitic mass] 25 pg Low 27 - 33 [facility] Comment on above: Performed By: #### 2 76930 ####[facility],[address] [place], [place] [address] MCHC 32 X10 3 Normal 32 - 36 [facility] Comment on above: Performed By: #### 2 80864 ####[facility],[address] [place], [place] [address] MCV (RBC) [Entitic vol] 79 fL Low 80 - 99 [facility] Comment on above: Performed By: #### 2 72224 ####[facility],[address] [place] [address] [place] # 1.36 x10EE3/UL High 0.20 - 1.00 [facility] Comment on above: Performed By: #### 2 96725 ####[facility],[address] [place] [address] 90746 MONOS % 10.9 % High 0.0 - 10.0 [facility] Comment on above: Performed By: #### 2 83505 ####[facility],[address] [place] [address] 72866 Morphology Stan (Bld) [Interp] N/A Normal [facility] Comment on above: Performed By: #### 2 88655 ####[facility],[address] [place] [address] 06469 Neut # 8.65 x10EE3/UL High 1.50 - 7.10 [facility] Comment on above: Performed By: #### 2 02809 ####[facility],[address] [place] [address] 64755 Neutrophils/100 WBC (Bld) 69.4 % Normal 46.0 - 76.0 [facility] Comment on above: Performed By: #### 2 91813 ####[facility],[address] [place] [address] 46302 PLATELET 538 x10EE3/UL High 150 - 450 [facility] Comment on above: Performed By: #### 2 86598 ####[facility],[address] [place] [address] 30024 Platelet mean volume (Bld) [Entitic vol] 8.1 fL Normal 6.6 - 10.5 [facility] Comment on above: Result Comment: AUTO MATED DIFFERENTIAL Performed By: #### 2 07639 ####[facility],[address] [place] [address] 00171 RBC 3.39 x 10EE6/UL Low 4.10 - 5.30 [facility] Comment on above: Performed By: #### 2 84274 ####[facility],[address] [place] [address] 87063 WBC 12.5 x 10EE3/UL High 4.5 - 10.8 [facility] Comment on above: Performed By: #### 2 18350 ####[facility],[address] [place] [address] 85903 CMP with eGFRon 09-24-2024 AGE 39 years Normal [facility] Comment on above: Performed By: #### 2 32741 #### [facility],[address] [place], [place] [address] Albumin [Mass/Vol] 1.7 g/dL Low 3.4 - 5.0 [facility] Comment on above: Performed By: #### 2 00354 #### [facility],[address] [place], [place] [address] Albumin/Globulin [Mass ratio] 0.3 {ratio} Low 0.9 - 1.6 [facility] Comment on above: Performed By: #### 2 69631 #### [facility],[address] [place], [place] [address] ALK PHOS 144 U/L High 46 - 116 [facility] Comment on above: Performed By: #### 2 36778 #### [facility],[address] [place] [address] 95186 ALT [Catalytic activity/Vol] 90 U/L High 16 - 63 [facility] Comment on above: Performed By: #### 2 56194 #### [facility],[address] [place] [address] 98669 Anion gap [Moles/Vol] 13 mmol/L Normal 10 - 20 [facility] Comment on above: Performed By: #### 2 40096 #### [facility],[address] [place] [address] 54770 AST [Catalytic activity/Vol] 40 U/L High 13 - 39 [facility] Comment on above: Performed By: #### 2 63393 #### [facility],[address] [place] [address] 16859 B/C RATIO 22 ratio Normal 0 - 30 [facility] Comment on above: Performed By: #### 2 28413 #### [facility],[address] [place] [address] 02605 Bilirubin [Mass/Vol] 0.5 mg/dL Normal 0.2 - 1.0 [facility] Comment on above: Performed By: #### 2 27905 #### [facility],[address] [place] [address] 25818 Calcium [Mass/Vol] 8.1 mg/dL Low 8.5 - 10.1 [facility] Comment on above: Performed By: #### 2 95959 #### [facility],[address] [place], [place] [address] Chloride [Moles/Vol] 101 mmol/L Normal 98 - 107 [facility] Comment on above: Performed By: #### 2 44458 #### [facility],[address] [place], [place] [address] CMP with eGFR Normal [facility] Comment on above: Result Comment: COMP REHENSIVE METABOLIC PANEL Performed By: #### 2 46751 #### [address] [address] CO2 [Moles/Vol] 25.9 mmol/L Normal 21.0 - 32.0 [facility] Comment on above: Performed By: #### 2 34357 #### [facility],[address] [place] [address] 92932 Creatinine [Mass/Vol] 0.76 mg/dL Normal 0.55 - 1.02 [facility] Comment on above: Performed By: #### 2 66351 #### [address] [address] GFR/1.73 sq M.predicted among non-blacks MDRD (S/P/Bld) [Vol rate/Area] mL/min/{1.73_m2} Normal 60 - 999 [facility] Comment on above: Performed By: #### 2 45338 #### [facility],[address] [place], [place] [address] Result Comment: ACCO RDING TO THE NATIONAL KIDNEY DISEASE EDUCATION PROGRAM(NKDE), A NORMAL eGFR IS A VALUE GREATER THAN OR EQUAL TO 60 ML/MIN/1.73 SQ METERS. CHRONIC KIDNEY DISEASE: <60mL/MIN/1.73 SQ METERS KIDNEY FAILURE: <15mL/MIN/1.73 SQ METERS THIS TEST SHOULD ONLY BE USED FOR PATIENTS 18 YEARS OF AGE AND OLDER. Globulin (S) [Mass/Vol] 5.4 g/dL High 1.5 - 3.8 [facility] Comment on above: Performed By: #### 2 [id number] #### [facility],[address] [place] [address] 39780 Glucose [Mass/Vol] 88 mg/dL Normal 74 - 106 [facility] Comment on above: Performed By: #### 2 05661 #### [facility],[address] [place], [place] [address] Potassium [Moles/Vol] 3.7 mmol/L Normal 3.5 - 5.1 [facility] Comment on above: Performed By: #### 2 46865 #### [facility],[address] [place], [place] [address] Protein [Mass/Vol] 7.1 g/dL Normal 6.4 - 8.2 [facility] Comment on above: Performed By: #### 2 29191 #### [facility],[address] [place] [address] 47083 Sodium [Moles/Vol] 136 mmol/L Normal 136 - 145 [facility] Comment on above: Performed By: #### 2 72469 #### [facility],[address] [place] [address] 02250 Urea nitrogen [Mass/Vol] 17 mg/dL Normal 7 - 18 [facility] Comment on above: Performed By: #### 2 92175 #### [facility],[address] [place] [address] MAGNESIUMon 09-24-2024 Magnesium [Mass/Vol] 1.9 mg/dL Normal 1.8 - 2.4 [facility] Comment on above: Performed By: #### 2 45462 #### [facility],[address] [place], [place] [address] BCIDon 09-23-2024 Acinetobacter michael-baumanii complex Not detected Normal Not Detected [facility] Comment on above: Performed By: #### B ANITHA #### [place] [address] Bacteroides fragilis Not detected Normal Not Detected [facility] Comment on above: Performed By: #### B ANITHA #### [place] [address] BCID Comment See Comment Normal [facility] Comment on above: Result Comment: Anti [...] follow. Performed By: #### B ANITHA #### [place] [address] Mary Ann albicans Not detected Normal Not Detected [facility] Comment on above: Performed By: #### B ANITHA #### [place] [address] Mary Ann auris Not detected Normal Not Detected [facility] Comment on above: Performed By: #### B ANITHA #### [place] [address] Mary Ann glabrata Not detected Normal Not Detected [facility] Comment on above: Performed By: #### B ANITHA #### [place] [address] [place] krusei Not detected Normal Not Detected [facility] Comment on above: Performed By: #### B ANITHA #### [place] [address] [place] parapsilosis Not detected Normal Not Detected [facility] Comment on above: Performed By: #### B ANITHA #### [facility] [address] [place] [address] Mary Ann tropicalis Not detected Normal Not Detected [facility] Comment on above: Performed By: #### B ANITHA #### [facility] [address] [place] [address] Cryptococcus neoformans-gattii Not detected Normal Not Detected [facility] Comment on above: Performed By: #### B ANITHA #### [facility] [address] [place] [address] CTX-M (ESBL) Not Applicable Normal Not Detected [facility] Comment on above: Performed By: #### B ANITHA #### [facility] [address] [place] [address] E. Coli Not detected Normal Not Detected [facility] Comment on above: Performed By: #### B ANITHA #### [facility] [address] [place] [address] Enterobacter cloacae Complex Not detected Normal Not Detected [facility] Comment on above: Performed By: #### B ANITHA #### [facility] [address] [place] [address] Enterobacterales Not detected Normal Not Detected [facility] Comment on above: Performed By: #### B ANITHA #### [facility] [address] [place] [address] Enterococcus faecalis Not detected Normal Not Detected [facility] Comment on above: Performed By: #### B ANITHA #### [facility] [address] [place] [address] Enterococcus faecium Not detected Normal Not Detected [facility] Comment on above: Performed By: #### B ANITHA #### [facility] [address] [place] [address] Haemophilus influenzae Not detected Normal Not Detected [facility] Comment on above: Performed By: #### B ANITHA #### [facility] [address] [place] [address] IMP (Carbapenemase) Not Applicable Normal Not Detected [facility] Comment on above: Performed By: #### B ANITHA #### [facility] [address] [place] [address] Klebsiella aerogenes Not detected Normal Not Detected [facility] Comment on above: Performed By: #### B ANITHA #### [facility] [address] [place] [address] Klebsiella oxytoca Not detected Normal Not Detected [facility] Comment on above: Performed By: #### B ANITHA #### [facility] [address] [place] [address] Klebsiella pneumoniae group Not detected Normal Not Detected [facility] Comment on above: Performed By: #### B ANITHA #### [facility] [address] [place] [address] KPC (Carbapenemase) Not Applicable Normal Not Detected [facility] Comment on above: Performed By: #### B ANITHA #### [place] [address] Listeria monocytogenes Not detected Normal Not Detected [facility] Comment on above: Performed By: #### B ANITHA #### [place] [address] MCR-1 (Colistin Resistance) Not Applicable Normal Not Detected [facility] Comment on above: Performed By: #### B ANITHA #### [place] [address] Mec A/C Detected Abnormal Not Detected [facility] Comment on above: Performed By: #### B ANITHA #### [place] [address] Mec A/C-MREJ (MRSA) Not Applicable Normal Not Detected [facility] Comment on above: Performed By: #### B ANITHA #### [place] [address] NDM (Carbapenemase) Not Applicable Normal Not Detected [facility] Comment on above: Performed By: #### B ANITHA #### [place] [id number] Neisseria meningitidis (Encapsalated) Not detected Normal Not Detected [facility] Comment on above: Performed By: #### B ANITHA #### [place] [address] OXA-48 like (Carbapenemase) Not Applicable Normal Not Detected [facility] Comment on above: Performed By: #### B ANITHA #### [place] [address] [place], [place] [id number] Proteus Not detected Normal Not Detected [facility] Comment on above: Performed By: #### B ANITHA #### [facility] [address] [place], [place] [address] Pseudomonas aeruginosa Not detected Normal Not Detected [facility] Comment on above: Performed By: #### B ANITHA #### [place] [phone] S. agalactiae Org specific cx Ql (Vag fld) Not detected Normal Not Detected [facility] Comment on above: Performed By: #### B ANITHA #### [place] [address] Salmonella species Not detected Normal Not Detected [facility] Comment on above: Performed By: #### B ANITHA #### [place] [address] Serratia marcescens Not detected Normal Not Detected [facility] Comment on above: Performed By: #### B ANITHA #### [place] [address] Staphylococcus Detected Abnormal Not Detected [facility] Comment on above: Performed By: #### B ANITHA #### [place] [address] Staphylococcus aureus Not detected Normal Not Detected [facility] Comment on above: Result Comment: If S taphylococcus aureus is Detected, an Infectious Disease physician consult is required on identification. Performed By: #### B ANITHA #### [place] [address] Staphylococcus epidermidis Detected Abnormal Not Detected [facility] Comment on above: Performed By: #### B ANITHA #### [place] [phone] Staphylococcus lugdunensis Not detected Normal Not Detected [facility] Comment on above: Performed By: #### B ANITHA #### [place] [phone] Stenotrophomonas maltophilia Not detected Normal Not Detected [facility] Comment on above: Performed By: #### B ANITHA #### [place] [address] Streptococcus Not detected Normal Not Detected [facility] Comment on above: Performed By: #### B ANITHA #### [place] [address] Streptococcus pneumoniae Not detected Normal Not Detected [facility] Comment on above: Performed By: #### B ANITHA #### [facility] [address] [place] [address] Streptococcus pyogenes Not detected Normal Not Detected [facility] Comment on above: Performed By: #### B ANITHA #### [place] [address] Van A/B Not Applicable Normal Not Detected [facility] Comment on above: Performed By: #### B ANITHA #### [place] [address] VIM (Carbapenemase) Not Applicable Normal Not Detected [facility] Comment on above: Performed By: #### B ANITHA #### [place] [address] CULTURE CATHETER TIP [AULTMA N]on 09-23-2024 CULTURE CATHETER TIP [IRASEMA] CULTURE CATHETER TIP [IRASEMA] _CATHETER TIP CULTURE_ GO TO CPSI REPORTS AND ATTACHMENTS FOR SCANNED REPORT 09/28/24.DNP.COMPLETE Normal [facility] Comment on above: Performed By: #### 2 64392 #### [facility],[address] [place], [place] [address] CULTURE BLOOD [IRASEMA]on Microscopic examination of blood, culture CULTURE BLOOD [IRASEMA] _BLOOD CULTURE_ GO TO CPSI REPORTS AND ATTACHMENTS FOR SCANNED REPORT 09/28/24.DNP.COMPLETE Normal [facility] Comment on above: Performed By: #### 2 97970 #### [facility],[address] [place], [place] [address] Microscopic examination of blood, culture CULTURE BLOOD [IRASEMA] _BLOOD CULTURE_ GO TO CPSI REPORTS AND ATTACHMENTS FOR SCANNED REPORT 09/28/24.DNP.COMPLETE Normal [facility] Comment on above: Performed By: #### 2 78003 #### [facility],[address] [place] [address] 97344 URINALYSISon 09-21-2024 Bilirubin Ql (U) Negative Normal NORMAL: NEGATIVE [facility] Comment on above: Performed By: #### 2 03936 #### [facility],[address] [place] [address] 88506 Clarity (U) clear Normal NORMAL: CLEAR [facility] Comment on above: Performed By: #### 2 04683 #### [facility],[address] [place] [address] 98844 Color (U) yellow Normal NORMAL: YELLOW [facility] Comment on above: Performed By: #### 2 81809 #### [facility],[address] [place] [address] 78310 Glucose Ql (U) NORM Normal NORMAL: NORMAL [facility] Comment on above: Performed By: #### 2 80349 #### [facility],[address] [place] [address] 78359 Hemoglobin Ql (U) Negative Normal NORMAL: NEGATIVE [facility] Comment on above: Performed By: #### 2 34985 #### [facility],[address] [place] [address] 08582 Ketone Negative Normal NORMAL: NEGATIVE [facility] Comment on above: Performed By: #### 2 50020 #### [facility],[address] [place] [address] 65838 Leukocytes Negative Normal NORMAL: NEGATIVE [facility] Comment on above: Performed By: #### 2 40341 #### [facility],[address] [place] [address] 92049 Nitrite Ql (U) Negative Normal NORMAL: NEGATIVE [facility] Comment on above: Performed By: #### 2 30609 #### [facility],[address] [place] [address] 96283 pH (U) 6.5 [pH] Normal NORMAL: 5.0-8.0 [facility] Comment on above: Performed By: #### 2 36084 #### [facility],[address] [place] [address] Protein Ql (U) 15 Abnormal NORMAL: NEGATIVE [facility] Comment on above: Performed By: #### 2 09120 #### [facility],[address] [place] [address] Sp [place] 1.020 Normal NORMAL: 1.010-1.030 [facility] Comment on above: Performed By: #### 2 90253 #### [facility],[address] [place] [address] Specimen Type Clean catch Normal [facility] Comment on above: Performed By: #### 2 73571 #### [place] [address] Urinalysis dipstick W Reflex Microscopic panel (U) NOT INDICATED Normal [facility] Comment on above: Performed By: #### 2 66690 #### [place] [address] Urobilinog NORM Normal NORMAL: NORMAL [facility] Comment on above: Performed By: #### 2 97187 #### [place] [address] URINE CULTURE [CCL]on 2024 Bacteria identified Cx Nom (U) URCUL See Results Below See Below CULTURE, URINE MIXED MICROBIOTA 10,000 -<50,000 CFU/ml Mixed microbiota No further workup. Mixed microbiota can be due to???urine???contamination with s SOURCE: Urine (Nonspecific) [facility] [address] [place] [address] Jaison Lema III, M.D. [id number] Normal [facility] Comment on above: Performed By: #### 2 13987 #### [facility],[address] [place] [address] 89686 CBC + DIFFon 09-20-2024 Baso # 0.06 x10EE3/UL Normal 0.00 - 0.10 [facility] Comment on above: Performed By: #### 2 58059 ####[facility],[address] [place] [address] 68266 Basophils/100 WBC (Bld) 0.4 % Normal 0.0 - 2.0 [facility] Comment on above: Performed By: #### 2 34043 ####[facility],[address] [place] [address] 00942 Basophils/100 WBC (Bld) 1.0 % Normal 0.0 - 2.0 [facility] Comment on above: Performed By: #### 2 10655 ####[facility],[address] [place] [address] 87297 CBC + DIFF Normal [facility] Comment on above: Result Comment: CBC- COMPLETE BLOOD COUNT Performed By: #### 2 19903 ####[facility],[address] [place] [address] 21598 CELL COUNT 100 Normal [facility] Comment on above: Performed By: #### 2 79426 ####[facility],[address] [place] [address] 80218 EO 1.0 % Normal 0.0 - 7.0 [facility] Comment on above: Performed By: #### 2 76795 ####[facility],[address] [place] [address] 77086 EO # 0.22 x10EE3/UL Normal 0.00 - 0.50 [facility] Comment on above: Performed By: #### 2 87268 ####[facility],[address] [place] [address] 40165 Eosinophils/100 WBC (Bld) 1.4 % Normal 0.0 - 7.0 [facility] Comment on above: Performed By: #### 2 21122 ####[facility],[address] [place] [address] 15283 Erythrocyte distribution width (RBC) [Ratio] 18.0 % High 12.0 - 15.6 [facility] Comment on above: Performed By: #### 2 74152 ####[facility],[address] [place], [place] [address] Hematocrit (Bld) [Volume fraction] 28.2 % Low 34.0 - 46.0 [facility] Comment on above: Performed By: #### 2 78555 ####[facility],[address] [place] [address] Hemoglobin (Bld) [Mass/Vol] 9.1 g/dL Low 12.0 - 16.0 [facility] Comment on above: Performed By: #### 2 22146 ####[facility],[address] [place] [address] Lymph # 2.04 x10EE3/UL Normal 0.80 - 2.80 [facility] Comment on above: Performed By: #### 2 35647 ####[facility],[address] [place] [address] 64903 Lymphocytes/100 WBC (Bld) 12.6 % Low 20.0 - 45.0 [facility] Comment on above: Performed By: #### 2 51821 ####[facility],[address] [place] [address] 62666 Lymphocytes/100 WBC (Bld) 13 % Low 20 - 45 [facility] Comment on above: Performed By: #### 2 46196 ####[facility],[address] [place] [address] 20560 MANUAL DIFF SEE BELOW Normal [facility] Comment on above: Performed By: #### 2 54381 ####[facility],[address] [place] [address] 53647 MCH (RBC) [Entitic mass] 26 pg Low 27 - 33 [facility] Comment on above: Performed By: #### 2 97657 ####[facility],[address] [place] [address] MCHC 32 X10 3 Normal 32 - 36 [facility] Comment on above: Performed By: #### 2 13481 ####[facility],[address] [place] [address] MCV (RBC) [Entitic vol] 80 fL Normal 80 - 99 [facility] Comment on above: Performed By: #### 2 85064 ####[facility],[address] [place] [address] [place] # 1.34 x10EE3/UL High 0.20 - 1.00 [facility] Comment on above: Performed By: #### 2 99274 ####[facility],[address] [place] [address] MONOS 4 % Normal 0 - 10 [facility] Comment on above: Performed By: #### 2 15228 ####[facility],[address] [place] [address] MONOS % 8.3 % Normal 0.0 - 10.0 [facility] Comment on above: Performed By: #### 2 30315 ####[facility],[address] [place] [address] Morphology Stan (Bld) [Interp] REVIEWED Normal [facility] Comment on above: Performed By: #### 2 56729 ####[facility],[address] [place] [address] Neut # 12.46 x10EE3/UL High 1.50 - 7.10 [facility] Comment on above: Performed By: #### 2 12317 ####[facility],[address] [place] [address] Neutrophils/100 WBC (Bld) 77.3 % High 46.0 - 76.0 [facility] Comment on above: Performed By: #### 2 86191 ####[facility],[address] [place], [place] [address] NRBC 1 /100 Normal [facility] Comment on above: Performed By: #### 2 36402 ####[facility],[address] [place] [address] 53604 PLATELET 422 x10EE3/UL Normal 150 - 450 [facility] Comment on above: Performed By: #### 2 88233 ####[facility],[address] [place] [address] Platelet mean volume (Bld) [Entitic vol] 8.8 fL Normal 6.6 - 10.5 [facility] Comment on above: Result Comment: AUTO MATED DIFFERENTIAL Performed By: #### 2 53704 ####[facility],[address] [place] [address] RBC 3.52 x 10EE6/UL Low 4.10 - 5.30 [facility] Comment on above: Performed By: #### 2 98695 ####[facility],[address] [place] [address] SEGS 81 % High 46 - 76 [facility] Comment on above: Performed By: #### 2 54814 ####[facility],[address] [place], [place] [address] WBC 16.1 x 10EE3/UL High 4.5 - 10.8 [facility] Comment on above: Performed By: #### 2 96313 ####[facility],[address] [place] [address] 54684 CMP with eGFRon 09-20-2024 AGE 39 years Normal [facility] Comment on above: Performed By: #### 2 87688 #### [facility],[address] [place] [address] 66350 Albumin [Mass/Vol] 1.6 g/dL Low 3.4 - 5.0 [facility] Comment on above: Performed By: #### 2 56080 #### [facility],[address] [place], [place] [address] Albumin/Globulin [Mass ratio] 0.3 {ratio} Low 0.9 - 1.6 [facility] Comment on above: Performed By: #### 2 77173 #### [facility],[address] [place], [place] [address] ALK PHOS 136 U/L High 46 - 116 [facility] Comment on above: Performed By: #### 2 64782 #### [facility],[address] [place] [address] ALT [Catalytic activity/Vol] 80 U/L High 16 - 63 [facility] Comment on above: Performed By: #### 2 38388 #### [facility],[address] [place] [address] Anion gap [Moles/Vol] 10 mmol/L Normal 10 - 20 [facility] Comment on above: Performed By: #### 2 81896 #### [facility],[address] [place] [address] AST [Catalytic activity/Vol] 34 U/L Normal 13 - 39 [facility] Comment on above: Performed By: #### 2 53200 #### [facility],[address] [place] [address] B/C RATIO 15 ratio Normal 0 - 30 [facility] Comment on above: Performed By: #### 2 19511 #### [facility],[address] [place] [address] Bilirubin [Mass/Vol] 0.6 mg/dL Normal 0.2 - 1.0 [facility] Comment on above: Performed By: #### 2 88889 #### [facility],[address] [place], [place] [address] Calcium [Mass/Vol] 8.1 mg/dL Low 8.5 - 10.1 [facility] Comment on above: Performed By: #### 2 62383 #### [facility],[address] [place], [place] [address] Chloride [Moles/Vol] 101 mmol/L Normal 98 - 107 [facility] Comment on above: Performed By: #### 2 71524 #### [facility],[address] [place] [address] CMP with eGFR Normal [facility] Comment on above: Result Comment: COMP REHENSIVE METABOLIC PANEL Performed By: #### 2 57306 #### [facility],[address] [place] [address] CO2 [Moles/Vol] 29.0 mmol/L Normal 21.0 - 32.0 [facility] Comment on above: Performed By: #### 2 56227 #### [facility],[address] [place] [address] Creatinine [Mass/Vol] 0.80 mg/dL Normal 0.55 - 1.02 [facility] Comment on above: Performed By: #### 2 95699 #### [facility],[address] [place] [address] GFR/1.73 sq M.predicted among non-blacks MDRD (S/P/Bld) [Vol rate/Area] mL/min/{1.73_m2} Normal 60 - 999 [facility] Comment on above: Performed By: #### 2 95389 #### [facility],[address] [place] [address] Result Comment: ACCO RDING TO THE NATIONAL KIDNEY DISEASE EDUCATION PROGRAM(NKDE), A NORMAL eGFR IS A VALUE GREATER THAN OR EQUAL TO 60 ML/MIN/1.73 SQ METERS. CHRONIC KIDNEY DISEASE: <60mL/MIN/1.73 SQ METERS KIDNEY FAILURE: <15mL/MIN/1.73 SQ METERS THIS TEST SHOULD ONLY BE USED FOR PATIENTS 18 YEARS OF AGE AND OLDER. Globulin (S) [Mass/Vol] 5.3 g/dL High 1.5 - 3.8 [facility] Comment on above: Performed By: #### 2 13653 #### [facility],[address] [place] [address] 75543 Glucose [Mass/Vol] 98 mg/dL Normal 74 - 106 [facility] Comment on above: Performed By: #### 2 26807 #### [facility],[address] [place] [address] 45705 Potassium [Moles/Vol] 4.2 mmol/L Normal 3.5 - 5.1 [facility] Comment on above: Performed By: #### 2 09187 #### [facility],[address] [place] [address] 59169 Protein [Mass/Vol] 6.9 g/dL Normal 6.4 - 8.2 [facility] Comment on above: Performed By: #### 2 29308 #### [facility],[address] [place] [address] 10792 Sodium [Moles/Vol] 136 mmol/L Normal 136 - 145 [facility] Comment on above: Performed By: #### 2 08122 #### [facility],[address] [place] [address] 52229 Urea nitrogen [Mass/Vol] 12 mg/dL Normal 7 - 18 [facility] Comment on above: Performed By: #### 2 27306 #### [facility],[address] [place] [address] 21103 MAGNESIUMon 09-20-2024 Magnesium [Mass/Vol] 1.7 mg/dL Low 1.8 - 2.4 [facility] Comment on above: Performed By: #### 2 35144 ####[facility],[address] [place] [address] 01245 BCIDon 09-18-2024 Acinetobacter michael-baumanii complex Not detected Normal Not Detected [facility] Comment on above: Order Comment: aer Performed By: #### B ANITHA #### [place] [address] Bacteroides fragilis Not detected Normal Not Detected [facility] Comment on above: Order Comment: aer Performed By: #### B ANITHA #### [place] [address] BCID Comment See Comment Normal [facility] Comment on above: Order Comment: aer [...] follow. Performed By: #### B ANITHA #### [place] [address] Mary Ann albicans Not detected Normal Not Detected [facility] Comment on above: Order Comment: aer Performed By: #### B ANITHA #### [place] [address] Mary Ann auris Not detected Normal Not Detected [facility] Comment on above: Order Comment: aer Performed By: #### B ANITHA #### [place] [address] [place] glabrata Not detected Normal Not Detected [facility] Comment on above: Order Comment: aer Performed By: #### B ANITHA #### [place] [address] [place] krusei Not detected Normal Not Detected [facility] Comment on above: Order Comment: aer Performed By: #### B ANITHA #### [place] [address] [place] parapsilosis Not detected Normal Not Detected [facility] Comment on above: Order Comment: aer Performed By: #### B ANITHA #### [place] [address] Mary [place] tropicalis Not detected Normal Not Detected [facility] Comment on above: Order Comment: aer Performed By: #### B ANITHA #### [place] [address] Cryptococcus neoformans-gattii Not detected Normal Not Detected [facility] Comment on above: Order Comment: aer Performed By: #### B ANITHA #### [place] [address] CTX-M (ESBL) Not Applicable Normal Not Detected [facility] Comment on above: Order Comment: aer Performed By: #### B ANITHA #### [place] [address] E. Coli Not detected Normal Not Detected [facility] Comment on above: Order Comment: aer Performed By: #### B ANITHA #### [place] [address] Enterobacter cloacae Complex Not detected Normal Not Detected [facility] Comment on above: Order Comment: aer Performed By: #### B ANITHA #### [place] [address] Enterobacterales Not detected Normal Not Detected [facility] Comment on above: Order Comment: aer Performed By: #### B ANITHA #### [place] [address] Enterococcus faecalis Not detected Normal Not Detected [facility] Comment on above: Order Comment: aer Performed By: #### B ANITHA #### [place] [address] Enterococcus faecium Not detected Normal Not Detected [facility] Comment on above: Order Comment: aer Performed By: #### B ANITHA #### [place] [address] Haemophilus influenzae Not detected Normal Not Detected [facility] Comment on above: Order Comment: aer Performed By: #### B ANITHA #### [place] [address] IMP (Carbapenemase) Not Applicable Normal Not Detected [facility] Comment on above: Order Comment: aer Performed By: #### B ANITHA #### [address] [address] Klebsiella aerogenes Not detected Normal Not Detected [facility] Comment on above: Order Comment: aer Performed By: #### B ANITHA #### [facility] [address] [place] [address] Klebsiella oxytoca Not detected Normal Not Detected [facility] Comment on above: Order Comment: aer Performed By: #### B ANITHA #### [place] [address] Klebsiella pneumoniae group Not detected Normal Not Detected [facility] Comment on above: Order Comment: aer Performed By: #### B ANITHA #### [place] [address] KPC (Carbapenemase) Not Applicable Normal Not Detected [facility] Comment on above: Order Comment: aer Performed By: #### B ANIHTA #### [place] [address] Listeria monocytogenes Not detected Normal Not Detected [facility] Comment on above: Order Comment: aer Performed By: #### B ANITHA #### [place] [address] MCR-1 (Colistin Resistance) Not Applicable Normal Not Detected [facility] Comment on above: Order Comment: aer Performed By: #### B ANITHA #### [place] [id number] Mec A/C Detected Abnormal Not Detected [facility] Comment on above: Order Comment: aer Performed By: #### B ANITHA #### [place] [id number] Mec A/C-MREJ (MRSA) Not Applicable Normal Not Detected [facility] Comment on above: Order Comment: aer Performed By: #### B ANITHA #### [place] [address] NDM (Carbapenemase) Not Applicable Normal Not Detected [facility] Comment on above: Order Comment: aer Performed By: #### B ANITHA #### [place] [address] Neisseria meningitidis (Encapsalated) Not detected Normal Not Detected [facility] Comment on above: Order Comment: aer Performed By: #### B ANITHA #### [place] [address] OXA-48 like (Carbapenemase) Not Applicable Normal Not Detected [facility] Comment on above: Order Comment: aer Performed By: #### B ANITHA #### [place] [address] Proteus Not detected Normal Not Detected [facility] Comment on above: Order Comment: aer Performed By: #### B ANITHA #### [place] [address] Pseudomonas aeruginosa Not detected Normal Not Detected [facility] Comment on above: Order Comment: aer Performed By: #### B ANITHA #### [place] [address] S. agalactiae Org specific cx Ql (Vag fld) Not detected Normal Not Detected [facility] Comment on above: Order Comment: aer Performed By: #### B ANITHA #### [place] [address] Salmonella species Not detected Normal Not Detected [facility] Comment on above: Order Comment: aer Performed By: #### B ANITHA #### [place] [address] Serratia marcescens Not detected Normal Not Detected [facility] Comment on above: Order Comment: aer Performed By: #### B ANITHA #### [place] [address] Staphylococcus Detected Abnormal Not Detected [facility] Comment on above: Order Comment: aer Performed By: #### B ANITHA #### [place] [address] Staphylococcus aureus Not detected Normal Not Detected [facility] Comment on above: Order Comment: aer Result Comment: If S taphylococcus aureus is Detected, an Infectious Disease physician consult is required on identification. Performed By: #### B ANITHA #### [place] [address] Staphylococcus epidermidis Detected Abnormal Not Detected [facility] Comment on above: Order Comment: aer Performed By: #### B ANITHA #### [place] [address] Staphylococcus lugdunensis Not detected Normal Not Detected [facility] Comment on above: Order Comment: aer Performed By: #### B ANITHA #### [place] [address] Stenotrophomonas maltophilia Not detected Normal Not Detected [facility] Comment on above: Order Comment: aer Performed By: #### B ANITHA #### [place] [address] Streptococcus Not detected Normal Not Detected [facility] Comment on above: Order Comment: aer Performed By: #### B ANITHA #### [place] [id number] Streptococcus pneumoniae Not detected Normal Not Detected [facility] Comment on above: Order Comment: aer Performed By: #### B ANITHA #### [place] [phone] Streptococcus pyogenes Not detected Normal Not Detected [facility] Comment on above: Order Comment: aer Performed By: #### B ANITHA #### [place] [id number] Van A/B Not Applicable Normal Not Detected [facility] Comment on above: Order Comment: aer Performed By: #### B ANITHA #### [place] [address] VIM (Carbapenemase) Not Applicable Normal Not Detected [facility] Comment on above: Order Comment: [id number] aer Performed By: #### B ANITHA #### [place] [id number] C-REACTIVE PROTEINon 025 CRP 6.50 mg/dl High 0.00 - 0.90 [facility] Comment on above: Performed By: #### 2 12821 #### [facility],[address] [place] [address] CBC + DIFFon 09-17-2024 Baso # 0.02 x10EE3/UL Normal 0.00 - 0.10 [facility] Comment on above: Performed By: #### 2 53792 ####[facility],[address] [place] [address] Basophils/100 WBC (Bld) 0.2 % Normal 0.0 - 2.0 [facility] Comment on above: Performed By: #### 2 80164 ####[facility],[address] [place] [address] 23727 CBC + DIFF Normal [facility] Comment on above: Result Comment: CBC- COMPLETE BLOOD COUNT Performed By: #### 2 57613 ####[facility],[address] [place] [address] 32514 EO # 0.05 x10EE3/UL Normal 0.00 - 0.50 [facility] Comment on above: Performed By: #### 2 59619 ####[facility],[address] [place] [address]97[address] Eosinophils/100 WBC (Bld) 0.5 % Normal 0.0 - 7.0 [facility] Comment on above: Performed By: #### 2 11432 ####[facility],[address] [place] [address] Erythrocyte distribution width (RBC) [Ratio] 17.2 % High 12.0 - 15.6 [facility] Comment on above: Performed By: #### 2 15792 ####[facility],[address] [place] [address] Hematocrit (Bld) [Volume fraction] 27.0 % Low 34.0 - 46.0 [facility] Comment on above: Performed By: #### 2 43036 ####[facility],[address] [place] [address] Hemoglobin (Bld) [Mass/Vol] 9.1 g/dL Low 12.0 - 16.0 [facility] Comment on above: Performed By: #### 2 73470 ####[facility],[address] [place] [address] Lymph # 1.13 x10EE3/UL Normal 0.80 - 2.80 [facility] Comment on above: Performed By: #### 2 86349 ####[facility],[address] [place] [address] Lymphocytes/100 WBC (Bld) 10.8 % Low 20.0 - 45.0 [facility] Comment on above: Performed By: #### 2 19309 ####[facility],[address] [place] [address] MANUAL DIFF N/A Normal [facility] Comment on above: Performed By: #### 2 51243 ####[facility],[address] [place], [place] [address] MCH (RBC) [Entitic mass] 27 pg Normal 27 - 33 [facility] Comment on above: Performed By: #### 2 81078 ####[facility],[address] [place] [address] MCHC 34 X10 3 Normal 32 - 36 [facility] Comment on above: Performed By: #### 2 54297 ####[facility],[address] [place], [place] [address] MCV (RBC) [Entitic vol] 80 fL Normal 80 - 99 [facility] Comment on above: Performed By: #### 2 14607 ####[facility],[address] [place] [address] [place] # 0.95 x10EE3/UL Normal 0.20 - 1.00 [facility] Comment on above: Performed By: #### 2 99768 ####[facility],[address] [place] [address] MONOS % 9.1 % Normal 0.0 - 10.0 [facility] Comment on above: Performed By: #### 2 02733 ####[facility],[address] [place] [address] Morphology Stan (Bld) [Interp] N/A Normal [facility] Comment on above: Performed By: #### 2 81439 ####[facility],[address] [place] [address] Neut # 8.26 x10EE3/UL High 1.50 - 7.10 [facility] Comment on above: Performed By: #### 2 62119 ####[facility],[address] [place] [address] 118[address] Neutrophils/100 WBC (Bld) 79.4 % High 46.0 - 76.0 [facility] Comment on above: Performed By: #### 2 35897 ####[facility],[address] [place] [address] PLATELET 225 x10EE3/UL Normal 150 - 450 [facility] Comment on above: Performed By: #### 2 90117 ####[facility],[address] [place] [address]78 Platelet mean volume (Bld) [Entitic vol] 9.1 fL Normal 6.6 - 10.5 [facility] Comment on above: Result Comment: AUTO MATED DIFFERENTIAL Performed By: #### 2 67928 ####[facility],[address] [place] [address] 83383 RBC 3.39 x 10EE6/UL Low 4.10 - 5.30 [facility] Comment on above: Performed By: #### 2 96475 ####[facility],[address] [place] [address] WBC 10.4 x 10EE3/UL Normal 4.5 - 10.8 [facility] Comment on above: Performed By: #### 2 97556 ####[facility],[address] [place] [address] CHEST 1 VIEWon 09-17-2024 CHEST 1 VIEW [place] [address] Patient: DALY EVANS Phone#: : 1985 Age: 39 Gender: F Pt. Type: ER Account: [id number] Location: [facility] Ordering: DONTE MEZA Exam Date: 09/17/2024/6:23 Family Phys: MAGGIE INDY Charge Code: [id number] Physician: Camp Order #: [id number] Dose#: PROCEDURE: X-RAY CHEST 1 VIEW COMPARISON: [...] Berry MD on 09/17/2024 at 10:53 Normal [facility] CMP with eGFRon 09-17-2024 AGE 39 years Normal [facility] Comment on above: Performed By: #### 2 51458 #### [facility],[address] [place] [address]704 Albumin [Mass/Vol] 1.9 g/dL Low 3.4 - 5.0 [facility] Comment on above: Performed By: #### 2 79434 #### [facility],[address] [place] [address] Albumin/Globulin [Mass ratio] 0.4 {ratio} Low 0.9 - 1.6 [facility] Comment on above: Performed By: #### 2 34600 #### [facility],[address] [place] [address] ALK PHOS 82 U/L Normal 46 - 116 [facility] Comment on above: Performed By: #### 2 18850 #### [facility],[address] [place] [address] 79736 ALT [Catalytic activity/Vol] 68 U/L High 16 - 63 [facility] Comment on above: Performed By: #### 2 05786 #### [facility],[address] [place] [address]105 Anion gap [Moles/Vol] 11 mmol/L Normal 10 - 20 [facility] Comment on above: Performed By: #### 2 67689 #### [facility],[address] [place] [address] 32392 AST [Catalytic activity/Vol] 48 U/L High 13 - 39 [facility] Comment on above: Performed By: #### 2 72431 #### [facility],[address] [place] [address] 26951 B/C RATIO 22 ratio Normal 0 - 30 [facility] Comment on above: Performed By: #### 2 11347 #### [facility],[address] [place] [address] 18581 Bilirubin [Mass/Vol] 0.4 mg/dL Normal 0.2 - 1.0 [facility] Comment on above: Performed By: #### 2 67631 #### [facility],[address] [place] [address] 15052 Calcium [Mass/Vol] 8.1 mg/dL Low 8.5 - 10.1 [facility] Comment on above: Performed By: #### 2 46431 #### [place] [id number] Chloride [Moles/Vol] 101 mmol/L Normal 98 - 107 [facility] Comment on above: Performed By: #### 2 17679 #### [facility],[address] [place] [address] CMP with eGFR Normal [facility] Comment on above: Result Comment: COMP REHENSIVE METABOLIC PANEL Performed By: #### 2 56499 #### [place] [address] CO2 [Moles/Vol] 27.6 mmol/L Normal 21.0 - 32.0 [facility] Comment on above: Performed By: #### 2 45255 #### [place] [address] Creatinine [Mass/Vol] 0.90 mg/dL Normal 0.55 - 1.02 [facility] Comment on above: Performed By: #### 2 39834 #### [place] [address] GFR/1.73 sq M.predicted among non-blacks MDRD (S/P/Bld) [Vol rate/Area] mL/min/{1.73_m2} Normal 60 - 999 [facility] Comment on above: Performed By: #### 2 23813 #### [place] [address] Result Comment: ACCO RDING TO THE NATIONAL KIDNEY DISEASE EDUCATION PROGRAM(NKDE), A NORMAL eGFR IS A VALUE GREATER THAN OR EQUAL TO 60 ML/MIN/1.73 SQ METERS. CHRONIC KIDNEY DISEASE: <60mL/MIN/1.73 SQ METERS KIDNEY FAILURE: <15mL/MIN/1.73 SQ METERS THIS TEST SHOULD ONLY BE USED FOR PATIENTS 18 YEARS OF AGE AND OLDER. Globulin (S) [Mass/Vol] 5.2 g/dL High 1.5 - 3.8 [facility] Comment on above: Performed By: #### 2 02492 #### [facility],[address] [place] [address] 30623 Glucose [Mass/Vol] 139 mg/dL High 74 - 106 [facility] Comment on above: Performed By: #### 2 20215 #### [facility],[address] [place] [address] 42748 Potassium [Moles/Vol] 3.2 mmol/L Low 3.5 - 5.1 [facility] Comment on above: Performed By: #### 2 76376 #### [facility],[address] [place] [address] 94240 Protein [Mass/Vol] 7.1 g/dL Normal 6.4 - 8.2 [facility] Comment on above: Performed By: #### 2 91020 #### [facility],[address] [place], [place] [address] Sodium [Moles/Vol] 136 mmol/L Normal 136 - 145 [facility] Comment on above: Performed By: #### 2 73479 #### [facility],[address] [place], [place] [address] Urea nitrogen [Mass/Vol] 20 mg/dL High 7 - 18 [facility] Comment on above: Performed By: #### 2 74690 #### [facility],[address] [place], [place] [address] CORONAVIRUS (SARS) ANTIGEN T ESTon 09-17-2024 EXTERNAL QC DONE? YES Normal [facility] Comment on above: Performed By: #### 2 27106 #### [place] [id number] INTERNAL CONTROL PASS Normal [facility] Comment on above: Performed By: #### 2 80960 #### [facility],[address] [place], [place] [address] SARS ANTIGEN Negative Normal NORMAL: NEGATIVE [facility] Comment on above: Performed By: #### 2 20951 #### [facility],[address] [place] [address] SEND TO ? NO Normal [facility] Comment on above: Result Comment: SARS -CoV-2 THIS TEST IS BEING USED UNDER THE FDA EUA PROCEDURE. THIS ASSAY HAS BEEN VALIDATED AT [facility] FOR USE WITH NASAL AND NASOPHARYNGEAL [...] PUBLIC HEALTH AUTHORITIES. Performed By: #### 2 68134 #### [facility],[address] [place] [address] CT ABDOMEN/PELVIS [facility] 2024 CT ABDOMEN/PELVIS [place] [address] Patient: DALY EVANS Phone#: : 1985 Age: 39 Gender: F Pt. Type: ER Account: [id number] Location: 052 Ordering: DONTE Sweeney DIDDAYSI Exam Date: 09/17/2024/5:25 Family Phys: MAGGIE PUTNAM Charge Code: 777249 Physician: Camp Order #: [id number] Dose#: 28.4 PROCEDURE: CT ABDOMEN/PELVIS WITH CONTRAST [...] 39 Gender: F Pt. Type: ER Account: [id number] Location: 052 Ordering: DONTE MEZA Exam Date: 09/17/2024/5:25 Family Phys: MAGGIE PUTNAM Charge Code: 489308 Physician: Camp Order #: [id number] Dose#: 28.4 CONCLUSION: 1. Findings consistent with colitis. 2. Left-sided ostomy is present. Dictated by: Seda Berry MD on 09/17/2024 at 9:27 Approved by: Seda Berry MD on 09/17/2024 at 9:33 Normal [facility] CULTURE BLOOD [IRASEMA]on Microscopic examination of blood, culture CULTURE BLOOD [IRASEMA] _BLOOD CULTURE_ [facility] AND ATTACH[facility] FOR SCANNED REPORT 09/24/24.1016.DNP.[facility] Comment on above: Performed By: #### 2 86890 #### [facility],[address] [place] [address] Microscopic examination of blood, culture CULTURE BLOOD [MONTROSE] _BLOOD CULTURE_ [facility] REPOR[facility] AND ATTACHMENTS FOR SCANNED REPORT 09/21/24.1002.DNP.[facility] Comment on above: Performed By: #### 2 80572 ####[facility],[address] [place] [address] CVFLURVon 09-17-2024 FLU A PCR Negative Normal Negative [facility] Comment on above: Result Comment: [place] [id number] Performed By: #### C VFLURV #### [facility] [address] [place] [address] FLU B PCR Negative Normal Negative [facility] Comment on above: Result Comment: [place] s [id number] Performed By: #### C VFLURV #### [facility] [address] [place] [address] RSV PCR Negative Normal Negative [facility] Comment on above: Result Comment: [place] s [address] Performed By: #### C VFLURV #### [facility] [address] [place] [address] SARS-CoV-2 (COVID-19) RNA LAUREANO+probe Ql (Unsp spec) Negative Normal Negative [facility] Comment on above: Result Comment: [place] [id number] This test has been authorized by FDA [...] results. Performed By: #### C VFLURV #### [place] [address] ED MED ADMINISTRATION DETAIL on 09-17-2024 ED MED ADMINISTRATION DETAIL Stamp Presser Medication Administration Record [address] [address] [id number] 09/17/2024 Patient: DALY EVANS Sex: Female : [...] 05:04 Tasha Schafer R.N. 1 of 2 [employer] Medication Ordered Medication Administration Date/Time Ondansetron IVP [...] Medication Wastage: 5 mg wasted. - 06:02 Tahsa Schafer R.N. HYDROmorphone 06:29 09/17 HYDROmorphone (Dilaudid) [...] Tasha Schafer R.N. 2 of 2 Normal [facility] ED NURSES CLINICAL NOTEon ED NURSES CLINICAL NOTE Nurse Narrative Nurse Clinical Narrative [address] [address] [id number] 09/17/2024 Patient: DALY EVANS Sex: Female : 1985 Age: 39y Primary Insurance: [employer] Policy Number: [id number] Subscriber: Other Disposition: Discharge to [facility] Disposition [...] on TPN with her PICC Line). 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 SEPSIS SCREEN: POSITIVE. SIRS [...] factors identif (more content not included)... Normal [facility] ED ORDER SHEET (CPOE ONLY)on 09-17-2024 ED ORDER SHEET (CPOE ONLY) Order Sheet Order Sheet [address] [address] [id number] 09/17/2024 Patient: DALY EVANS Sex: Female : [...] minutes Renae Riggs Crystal Brenner, R.N. RIrene 21 Dealer 04:48 09/17/2024 04:49 09/17/2024 05:09 09/17/2024 Renae Riggs Crystal Brenner, R.N. RIrene Oxygen titrate to 92% 04:48 09/17/2024 04:49 09/17/2024 05:09 09/17/2024 Renae Riggs Crystal Brenner, R.N. RIrene [Electronically signed by Donte Meza D.O. (09/17/2024 08:24 EDT)] 4 of 4 Normal [facility] ED PHYSICIAN CLINICAL REPORT on 09-17-2024 ED PHYSICIAN CLINICAL REPORT Narrative Physician Clinical Narrative [address] [address] [id number] 09/17/2024 Patient: DALY EVANS Sex: Female : 1985 Age: 39y Primary Insurance: [employer] Policy Number: [id number] Subscriber: Other Disposition: Discharge to [facility] Disposition [...] normal EDT (more content not included)... Normal [facility] ED SUPER BILLon 09-17-2024 ED SUPER BILL [facility] [address] [place] [address] [id number] 09/17/2024 Patient: DALY EVANS Sex: Female : 1985 Age: 39y Facility Professional Category Item Description Code Code Quantity Fee Total Drugs Normal Saline 197532 1 $0.00 $0.00 1000cc (323083) Nurse/E/M EMERGENCY 625606 1 $0.00 $0.00 DEPT VISIT HIGH SEVERITYFUNCJ (64959-15) Nurse/IV/IM/Infusions Hydration 172092 3 $0.00 $0.00 additional hour (63211) Nurse/IV/IM/Infusions IVP additional 230495 3 $0.00 $0.00 push (65470) Nurse/IV/IM/Infusions IVP initial (83276) 205755 1 $0.00 $0.00 Nurse/Supplies Central Line 427596 1 $0.00 $0.00 Dressing (963530) Grand $0.00 Total Providers 1 of 2 [facility] oDnte Meza D.O. Chief Complaint ABDOMINAL PAIN. Principal Diagnosis Generalized abdominal pain. (Postoperative abdominal pain). Vomiting with nausea. status post abdominal surgery with left-sided ostomy. ICD-10 Codes R10.84: Generalized abdominal pain R11.2: Nausea with vomiting, unspecified 2 of 2 Normal [facility] ED VISIT SUMMARYon ED VISIT SUMMARY Visit Overview Visit Overview [facility] [address] [place] [address] [id number] 09/17/2024 [id number] Sex: Female : 1985 Age: 39y 09/17/2024 [...] nausea and vomiting. Recent ileostomy placement at [facility]). GENERAL / NEURO / PSYCH: Alert. [...] VOMITING WITH NAUSEA 4 of 4 Normal [facility] ED VITALS FLOW SHEETon 09-17 ED VITALS FLOW SHEET Vitals Vital Sign Flow Sheet [facility] [address] [place] [address] [id number] 09/17/2024 Patient: DLAY EVANS Sex: Female : 1985 [...] 139/87 94 107 3 of 3 Normal [facility] INFLUENZA VIRUS RAPID A/Bon 09-17-2024 INFLUENZA [...] TO THREE DAYS. RESULT CRITICAL? NO Normal [facility] Comment on above: Performed By: #### 2 49264 #### [place] [address] LACTATEon 09-17-2024 Lactate [Moles/Vol] 1.4 mmol/L Normal 0.4 - 2.0 [facility] Comment on above: Performed By: #### 2 22065 #### [place] [address] LIPASEon 09-17-2024 Lipase [Catalytic activity/Vol] 38.0 U/L Normal 15.0 - 78.0 [facility] Comment on above: Result Comment: *PLE ASE NOTE THAT RANGES FOR LIPASE HAVE CHANGED OF 06/24/23 DUE TO AN ASSAY UPDATE BY THE [employer] SALES ENGINE[employer].THE NEW ASSAY RANGE IS 6-250 U/L, WITH A REFERENCE RANGE OF 16-77 U/L. Performed By: #### 2 04484 #### [place] [address] SERUM QUALon 09-17 EXTERNAL QC DONE? YES Normal [facility] Comment on above: Performed By: #### 2 59942 ####[place] [address] INTERNAL QC PASS Normal [facility] Comment on above: Performed By: #### 2 95011 ####[place] [address] SER Negative Normal NEGATIVE [facility] Comment on above: Performed By: #### 2 24803 ####[place] [address] RSVon 09-17-2024 RSV RSV NEGATIVE INTERNAL NEG QC PASS INTERNAL POS QC PASS EXTERNAL QC DONE? YES THIS TESTS IS INTENDED FOR IN VITRO DIAGNOSTIC USE TO AID IN THE DIAGNOSIS OF RESPIRATORY SYNCTYIAL VIRUS INFECTIONS IN AND PEDIATRIC PATIENTS UNDER THE AGE OF 5. IT IS RECOMMENDED THAT NEGATIVE TEST RESULTS BE CONFIRMED BY CELL CULTURE. Normal [facility] Comment on above: Performed By: #### 2 43146 #### [facility],[address] [place] [address] TROPONINon 09-17-2024 HS TROPONIN 7.5 pg/mL Normal 0.0 - 51.4 [facility] Comment on above: Performed By: #### 2 39037 #### [facility],[address] [place] [address] CBC + DIFFon 09-15-2024 Baso # 0.00 x10EE3/UL Normal 0.00 - 0.10 [facility] Comment on above: Performed By: #### 2 68313 #### [facility],[address] [place], [place] [address] Basophils/100 WBC (Bld) 0.1 % Normal 0.0 - 2.0 [facility] Comment on above: Performed By: #### 2 27731 #### [place] [address] CBC + DIFF Normal [facility] Comment on above: Result Comment: CBC- COMPLETE BLOOD COUNT Performed By: #### 2 52510 #### [facility],[address] [place] [address] EO # 0.01 x10EE3/UL Normal 0.00 - 0.50 [facility] Comment on above: Performed By: #### 2 73088 #### [place] [id number] Eosinophils/100 WBC (Bld) 0.3 % Normal 0.0 - 7.0 [facility] Comment on above: Performed By: #### 2 73620 #### [facility],[address],[place] [address] Erythrocyte distribution width (RBC) [Ratio] 17.5 % High 12.0 - 15.6 [facility] Comment on above: Performed By: #### 2 19971 #### [facility],[address] [place], [place] [address] Hematocrit (Bld) [Volume fraction] 27.5 % Low 34.0 - 46.0 [facility] Comment on above: Performed By: #### 2 02220 #### [facility],[address] [place], [place] [address] Hemoglobin (Bld) [Mass/Vol] 8.7 g/dL Low 12.0 - 16.0 [facility] Comment on above: Performed By: #### 2 16938 #### [facility],[address] [place] [address] Lymph # 0.62 x10EE3/UL Low 0.80 - 2.80 [facility] Comment on above: Performed By: #### 2 90967 #### [facility],[address] [place] [address] 96784 Lymphocytes/100 WBC (Bld) 13.7 % Low 20.0 - 45.0 [facility] Comment on above: Performed By: #### 2 35645 #### [facility],[address] [place] [address] 89466 MANUAL DIFF N/A Normal [facility] Comment on above: Performed By: #### 2 52531 #### [facility],[address] [place] [address] 16799 MCH (RBC) [Entitic mass] 25 pg Low 27 - 33 [facility] Comment on above: Performed By: #### 2 24271 #### [facility],[address] [place] [address] 73562 MCHC 32 X10 3 Normal 32 - 36 [facility] Comment on above: Performed By: #### 2 40079 #### [facility],[address] [place] [address] 45519 MCV (RBC) [Entitic vol] 80 fL Normal 80 - 99 [facility] Comment on above: Performed By: #### 2 31537 #### [facility],[address] [place] [address] 83003 [place] # 0.17 x10EE3/UL Low 0.20 - 1.00 [facility] Comment on above: Performed By: #### 2 24506 #### [facility],[address] [place] [address] 89866 MONOS % 3.8 % Normal 0.0 - 10.0 [facility] Comment on above: Performed By: #### 2 16336 #### [facility],[address] [place] [address] 72800 Morphology Stan (Bld) [Interp] N/A Normal [facility] Comment on above: Performed By: #### 2 17028 #### [facility],[address] [place] [address] 01752 Neut # 3.70 x10EE3/UL Normal 1.50 - 7.10 [facility] Comment on above: Performed By: #### 2 89712 #### [facility],[address] [place] [address] 96817 Neutrophils/100 WBC (Bld) 82.2 % High 46.0 - 76.0 [facility] Comment on above: Performed By: #### 2 64865 #### [facility],[address] [place] [address] 11660 PLATELET 272 x10EE3/UL Normal 150 - 450 [facility] Comment on above: Performed By: #### 2 86909 #### [facility],[address] [place] [address] 58542 Platelet mean volume (Bld) [Entitic vol] 8.2 fL Normal 6.6 - 10.5 [facility] Comment on above: Result Comment: AUTO MATED DIFFERENTIAL Performed By: #### 2 34798 #### [facility],[address] [place] [address] 15416 RBC 3.43 x 10EE6/UL Low 4.10 - 5.30 [facility] Comment on above: Performed By: #### 2 79615 #### [facility],[address] [place] [address] 45632 WBC 4.5 x 10EE3/UL Normal 4.5 - 10.8 [facility] Comment on above: Performed By: #### 2 43699 #### [facility],[address] [place] [address] 53742 CMP with eGFRon 09-15-2024 AGE 39 years Normal [facility] Comment on above: Performed By: #### 2 52174 #### [facility],[address] [place] [address] 36184 Albumin [Mass/Vol] 1.9 g/dL Low 3.4 - 5.0 [facility] Comment on above: Performed By: #### 2 81865 #### [facility],[address] [place] [address] 92404 Albumin/Globulin [Mass ratio] 0.3 {ratio} Low 0.9 - 1.6 [facility] Comment on above: Performed By: #### 2 94746 #### [facility],[address] [place] [address] 83985 ALK PHOS 82 U/L Normal 46 - 116 [facility] Comment on above: Performed By: #### 2 03850 #### [facility],[address] [place] [address] 22835 ALT [Catalytic activity/Vol] 27 U/L Normal 16 - 63 [facility] Comment on above: Performed By: #### 2 31200 #### [facility],[address] [place] [address] 75664 Anion gap [Moles/Vol] 13 mmol/L Normal 10 - 20 [facility] Comment on above: Performed By: #### 2 42508 #### [facility],[address] [place] [address] 52485 AST [Catalytic activity/Vol] 31 U/L Normal 13 - 39 [facility] Comment on above: Performed By: #### 2 49134 #### [facility],[address] [place] [address] 39204 B/C RATIO 14 ratio Normal 0 - 30 [facility] Comment on above: Performed By: #### 2 43011 #### [facility],[address] [place] [address] 90842 Bilirubin [Mass/Vol] 0.5 mg/dL Normal 0.2 - 1.0 [facility] Comment on above: Performed By: #### 2 04549 #### [facility],[address] [place] [address] 86443 Calcium [Mass/Vol] 8.0 mg/dL Low 8.5 - 10.1 [facility] Comment on above: Performed By: #### 2 42651 #### [facility],[address] [place] [address] 07642 Chloride [Moles/Vol] 100 mmol/L Normal 98 - 107 [facility] Comment on above: Performed By: #### 2 40816 #### [facility],[address] [place] [address] 00879 CMP with eGFR Normal [facility] Comment on above: Result Comment: COMP REHENSIVE METABOLIC PANEL Performed By: #### 2 11331 #### [facility],[address] [place] [address] 98716 CO2 [Moles/Vol] 24.6 mmol/L Normal 21.0 - 32.0 [facility] Comment on above: Performed By: #### 2 50356 #### [facility],[address] [place] [address] 78523 Creatinine [Mass/Vol] 1.06 mg/dL High 0.55 - 1.02 [facility] Comment on above: Performed By: #### 2 74437 #### [facility],[address] [place] [address] 00606 eGFR 57 ML/MINUTE Low 60 - 999 [facility] Comment on above: Performed By: #### 2 21707 #### [facility],[address] [place] [address] 28996 GFR/1.73 sq M.predicted among non-blacks MDRD (S/P/Bld) [Vol rate/Area] mL/min/{1.73_m2} Normal 60 - 999 [facility] Comment on above: Result Comment: ACCO RDING TO THE NATIONAL KIDNEY DISEASE EDUCATION PROGRAM(NKDE), A NORMAL eGFR IS A VALUE GREATER THAN OR EQUAL TO 60 ML/MIN/1.73 SQ METERS. CHRONIC KIDNEY DISEASE: <60mL/MIN/1.73 SQ METERS KIDNEY FAILURE: <15mL/MIN/1.73 SQ METERS THIS TEST SHOULD ONLY BE USED FOR PATIENTS 18 YEARS OF AGE AND OLDER. Performed By: #### 2 94931 #### [facility],[address] [place] [address] 58187 Globulin (S) [Mass/Vol] 5.5 g/dL High 1.5 - 3.8 [facility] Comment on above: Performed By: #### 2 61948 #### [facility],[address] [place] [address] 32553 Glucose [Mass/Vol] 105 mg/dL Normal 74 - 106 [facility] Comment on above: Performed By: #### 2 90439 #### [facility],[address] [place] [address] 60516 Potassium [Moles/Vol] 3.7 mmol/L Normal 3.5 - 5.1 [facility] Comment on above: Performed By: #### 2 62560 #### [facility],[address] [place] [address] 57037 Protein [Mass/Vol] 7.4 g/dL Normal 6.4 - 8.2 [facility] Comment on above: Performed By: #### 2 39124 #### [facility],[address] [place] [address] Sodium [Moles/Vol] 134 mmol/L Low 136 - 145 [facility] Comment on above: Performed By: #### 2 46310 #### [facility],[address] [place] [address] Urea nitrogen [Mass/Vol] 15 mg/dL Normal 7 - 18 [facility] Comment on above: Performed By: #### 2 94285 #### [facility],[address] [place] [address] CBC + DIFFon 09-13-2024 Baso # 0.02 x10EE3/UL Normal 0.00 - 0.10 [facility] Comment on above: Performed By: #### 2 79664 #### [facility],[address] [place] [address] Basophils/100 WBC (Bld) 0.3 % Normal 0.0 - 2.0 [facility] Comment on above: Performed By: #### 2 76286 #### [facility],[address] [place] [address] CBC + DIFF Normal [facility] Comment on above: Result Comment: CBC- COMPLETE BLOOD COUNT Performed By: #### 2 92323 #### [facility],[address] [place] [address] EO # 0.26 x10EE3/UL Normal 0.00 - 0.50 [facility] Comment on above: Performed By: #### 2 20083 #### [facility],[address] [place] [address] 32692 Eosinophils/100 WBC (Bld) 3.9 % Normal 0.0 - 7.0 [facility] Comment on above: Performed By: #### 2 88241 #### [facility],[address] [place] [address] 53180 Erythrocyte distribution width (RBC) [Ratio] 17.0 % High 12.0 - 15.6 [facility] Comment on above: Performed By: #### 2 66355 #### [facility],[address] [place] [address] 01935 Hematocrit (Bld) [Volume fraction] 29.3 % Low 34.0 - 46.0 [facility] Comment on above: Performed By: #### 2 10086 #### [facility],[address] [place], [place] [address] Hemoglobin (Bld) [Mass/Vol] 9.5 g/dL Low 12.0 - 16.0 [facility] Comment on above: Performed By: #### 2 28958 #### [facility],[address] [place], [place] [address] Lymph # 1.51 x10EE3/UL Normal 0.80 - 2.80 [facility] Comment on above: Performed By: #### 2 92016 #### [facility],[address] [place] [address] 65097 Lymphocytes/100 WBC (Bld) 22.6 % Normal 20.0 - 45.0 [facility] Comment on above: Performed By: #### 2 04825 #### [facility],[address] [place] [address] 67513 MANUAL DIFF N/A Normal [facility] Comment on above: Performed By: #### 2 63026 #### [facility],[address] [place] [address] 51890 MCH (RBC) [Entitic mass] 26 pg Low 27 - 33 [facility] Comment on above: Performed By: #### 2 36332 #### [facility],[address] [place] [address] 10261 MCHC 33 X10 3 Normal 32 - 36 [facility] Comment on above: Performed By: #### 2 60006 #### [facility],[address] [place] [address] 73063 MCV (RBC) [Entitic vol] 81 fL Normal 80 - 99 [facility] Comment on above: Performed By: #### 2 70182 #### [facility],[address] [place] [address] 34507 [place] # 0.38 x10EE3/UL Normal 0.20 - 1.00 [facility] Comment on above: Performed By: #### 2 18229 #### [facility],[address] [place] [address] 77351 MONOS % 5.6 % Normal 0.0 - 10.0 [facility] Comment on above: Performed By: #### 2 86020 #### [facility],[address] [place] [address] 46833 Morphology Stan (Bld) [Interp] N/A Normal [facility] Comment on above: Performed By: #### 2 05025 #### [facility],[address] [place] [address] 31823 Neut # 4.54 x10EE3/UL Normal 1.50 - 7.10 [facility] Comment on above: Performed By: #### 2 20173 #### [facility],[address] [place] [address] 67471 Neutrophils/100 WBC (Bld) 67.6 % Normal 46.0 - 76.0 [facility] Comment on above: Performed By: #### 2 23608 #### [facility],[address] [place] [address] 58577 PLATELET 455 x10EE3/UL High 150 - 450 [facility] Comment on above: Performed By: #### 2 15441 #### [facility],[address] [place] [address] 77018 Platelet mean volume (Bld) [Entitic vol] 7.9 fL Normal 6.6 - 10.5 [facility] Comment on above: Result Comment: AUTO MATED DIFFERENTIAL Performed By: #### 2 29294 #### [facility],[address] [place] [address] 79121 RBC 3.63 x 10EE6/UL Low 4.10 - 5.30 [facility] Comment on above: Performed By: #### 2 55905 #### [facility],[address] [place] [address] 70399 WBC 6.7 x 10EE3/UL Normal 4.5 - 10.8 [facility] Comment on above: Performed By: #### 2 20757 #### [facility],[address] [place] [address] 67810 CMP with eGFRon 09-13-2024 AGE 39 years Normal [facility] Comment on above: Performed By: #### 2 06206 #### [facility],[address] [place] [address] 15781 Albumin [Mass/Vol] 2.1 g/dL Low 3.4 - 5.0 [facility] Comment on above: Performed By: #### 2 21664 #### [facility],[address] [place] [address] 62876 Albumin/Globulin [Mass ratio] 0.4 {ratio} Low 0.9 - 1.6 [facility] Comment on above: Performed By: #### 2 01618 #### [facility],[address] [place] [address] 77100 ALK PHOS 95 U/L Normal 46 - 116 [facility] Comment on above: Performed By: #### 2 36362 #### [facility],[address] [place] [address] 55656 ALT [Catalytic activity/Vol] 25 U/L Normal 16 - 63 [facility] Comment on above: Performed By: #### 2 39525 #### [facility],[address] [place] [address] 83086 Anion gap [Moles/Vol] 12 mmol/L Normal 10 - 20 [facility] Comment on above: Performed By: #### 2 17655 #### [facility],[address] [place] [address] 20104 AST [Catalytic activity/Vol] 20 U/L Normal 13 - 39 [facility] Comment on above: Performed By: #### 2 09245 #### [facility],[address] [place] [address] 39774 B/C RATIO 24 ratio Normal 0 - 30 [facility] Comment on above: Performed By: #### 2 75106 #### [facility],[address] [place] [address] 35892 Bilirubin [Mass/Vol] 0.4 mg/dL Normal 0.2 - 1.0 [facility] Comment on above: Performed By: #### 2 35090 #### [facility],[address] [place] [address] 76832 Calcium [Mass/Vol] 8.7 mg/dL Normal 8.5 - 10.1 [facility] Comment on above: Performed By: #### 2 99826 #### [facility],[address] [place] [address] 14258 Chloride [Moles/Vol] 102 mmol/L Normal 98 - 107 [facility] Comment on above: Performed By: #### 2 96818 #### [facility],[address] [place] [address] 69003 CMP with eGFR Normal [facility] Comment on above: Result Comment: COMP REHENSIVE METABOLIC PANEL Performed By: #### 2 80196 #### [facility],[address] [place] [address] 40254 CO2 [Moles/Vol] 27.5 mmol/L Normal 21.0 - 32.0 [facility] Comment on above: Performed By: #### 2 88987 #### [facility],[address] [place] [address] 27857 Creatinine [Mass/Vol] 0.87 mg/dL Normal 0.55 - 1.02 [facility] Comment on above: Performed By: #### 2 71716 #### [facility],[address] [place] [address] 32147 GFR/1.73 sq M.predicted among non-blacks MDRD (S/P/Bld) [Vol rate/Area] mL/min/{1.73_m2} Normal 60 - 999 [facility] Comment on above: Performed By: #### 2 60493 #### [facility],[address] [place] [address] Result Comment: ACCO RDING TO THE NATIONAL KIDNEY DISEASE EDUCATION PROGRAM(NKDE), A NORMAL eGFR IS A VALUE GREATER THAN OR EQUAL TO 60 ML/MIN/1.73 SQ METERS. CHRONIC KIDNEY DISEASE: <60mL/MIN/1.73 SQ METERS KIDNEY FAILURE: <15mL/MIN/1.73 SQ METERS THIS TEST SHOULD ONLY BE USED FOR PATIENTS 18 YEARS OF AGE AND OLDER. Globulin (S) [Mass/Vol] 5.8 g/dL High 1.5 - 3.8 [facility] Comment on above: Performed By: #### 2 53820 #### [address] [address] Glucose [Mass/Vol] 74 mg/dL Normal 74 - 106 [facility] Comment on above: Performed By: #### 2 57597 #### [facility],[address] [place] [address] 31346 Potassium [Moles/Vol] 3.7 mmol/L Normal 3.5 - 5.1 [facility] Comment on above: Performed By: #### 2 50495 #### [facility],[address] [place] [address] 97381 Protein [Mass/Vol] 7.9 g/dL Normal 6.4 - 8.2 [facility] Comment on above: Performed By: #### 2 95728 #### [facility],[address] [place] [address] 04541 Sodium [Moles/Vol] 138 mmol/L Normal 136 - 145 [facility] Comment on above: Performed By: #### 2 36305 #### [facility],[address] [place] [address] 46331 Urea nitrogen [Mass/Vol] 21 mg/dL High 7 - 18 [facility] Comment on above: Performed By: #### 2 80370 #### [facility],[address] [place] [address] 63376 MAGNESIUMon 09-13-2024 Magnesium [Mass/Vol] 1.8 mg/dL Normal 1.8 - 2.4 [facility] Comment on above: Performed By: #### 2 41984 #### [facility],[address] [place] [address] 83539 CMP with eGFRon 09-10-2024 AGE 39 years Normal [facility] Comment on above: Performed By: #### 2 29996 ####[facility],[address] [place] [address] 33704 Albumin [Mass/Vol] 2.0 g/dL Low 3.4 - 5.0 [facility] Comment on above: Performed By: #### 2 04947 ####[facility],[address] [place] [address] 63154 Albumin/Globulin [Mass ratio] 0.4 {ratio} Low 0.9 - 1.6 [facility] Comment on above: Performed By: #### 2 96239 ####[facility],[address] [place] [address] 41203 ALK PHOS 93 U/L Normal 46 - 116 [facility] Comment on above: Performed By: #### 2 91210 ####[facility],[address] [place] [address] 91717 ALT [Catalytic activity/Vol] 26 U/L Normal 16 - 63 [facility] Comment on above: Performed By: #### 2 55190 ####[facility],[address] [place] [address] 00049 Anion gap [Moles/Vol] 7 mmol/L Low 10 - 20 [facility] Comment on above: Performed By: #### 2 40539 ####[facility],[address] [place] [address] 35642 AST [Catalytic activity/Vol] 22 U/L Normal 13 - 39 [facility] Comment on above: Performed By: #### 2 62143 ####[facility],[address] [place] [address] 60183 B/C RATIO 19 ratio Normal 0 - 30 [facility] Comment on above: Performed By: #### 2 84518 ####[facility],[address] [place] [address] 65821 Bilirubin [Mass/Vol] 0.3 mg/dL Normal 0.2 - 1.0 [facility] Comment on above: Performed By: #### 2 72617 ####[facility],[address] [place] [address] 71195 Calcium [Mass/Vol] 8.3 mg/dL Low 8.5 - 10.1 [facility] Comment on above: Performed By: #### 2 61400 ####[facility],[address] [place] [address] 95548 Chloride [Moles/Vol] 103 mmol/L Normal 98 - 107 [facility] Comment on above: Performed By: #### 2 99977 ####[facility],[address] [place] [address] 30397 CMP with eGFR Normal [facility] Comment on above: Result Comment: COMP REHENSIVE METABOLIC PANEL Performed By: #### 2 38180 ####[facility],[address] [place] [address] 07092 CO2 [Moles/Vol] 30.7 mmol/L Normal 21.0 - 32.0 [facility] Comment on above: Performed By: #### 2 59713 ####[facility],[address] [place] [address] 80509 Creatinine [Mass/Vol] 0.90 mg/dL Normal 0.55 - 1.02 [facility] Comment on above: Performed By: #### 2 92026 ####[facility],[address] [place] [address] 32527 GFR/1.73 sq M.predicted among non-blacks MDRD (S/P/Bld) [Vol rate/Area] mL/min/{1.73_m2} Normal 60 - 999 [facility] Comment on above: Performed By: #### 2 78199 ####[facility],[address] [place] [address] Result Comment: ACCO RDING TO THE NATIONAL KIDNEY DISEASE EDUCATION PROGRAM(NKDE), A NORMAL eGFR IS A VALUE GREATER THAN OR EQUAL TO 60 ML/MIN/1.73 SQ METERS. CHRONIC KIDNEY DISEASE: <60mL/MIN/1.73 SQ METERS KIDNEY FAILURE: <15mL/MIN/1.73 SQ METERS THIS TEST SHOULD ONLY BE USED FOR PATIENTS 18 YEARS OF AGE AND OLDER. Globulin (S) [Mass/Vol] 5.7 g/dL High 1.5 - 3.8 [facility] Comment on above: Performed By: #### 2 16375 ####[facility],[address] [place] [address] 06295 Glucose [Mass/Vol] 94 mg/dL Normal 74 - 106 [facility] Comment on above: Performed By: #### 2 94150 ####[facility],[address] [place] [address] 29700 Potassium [Moles/Vol] 3.5 mmol/L Normal 3.5 - 5.1 [facility] Comment on above: Performed By: #### 2 32824 ####[facility],[address] [place] [address] 79171 Protein [Mass/Vol] 7.7 g/dL Normal 6.4 - 8.2 [facility] Comment on above: Performed By: #### 2 97044 ####[facility],[address] [place] [address] 73891 Sodium [Moles/Vol] 137 mmol/L Normal 136 - 145 [facility] Comment on above: Performed By: #### 2 63398 ####[facility],[address] [place] [address] Urea nitrogen [Mass/Vol] 17 mg/dL Normal 7 - 18 [facility] Comment on above: Performed By: #### 2 83062 ####[facility],[address] [place] [address] MAGNESIUMon 09-10-2024 Magnesium [Mass/Vol] 1.7 mg/dL Low 1.8 - 2.4 [facility] Comment on above: Performed By: #### 2 64427 #### [facility],[address] [place] [address] CBC + DIFFon 09-06-2024 Baso # 0.04 x10EE3/UL Normal 0.00 - 0.10 [facility] Comment on above: Performed By: #### 2 42426 #### [facility],[address] [place] [address] 65629 Basophils/100 WBC (Bld) 0.4 % Normal 0.0 - 2.0 [facility] Comment on above: Performed By: #### 2 01663 #### [facility],[address] [place] [address] CBC + DIFF Normal [facility] Comment on above: Result Comment: CBC- COMPLETE BLOOD COUNT Performed By: #### 2 78369 #### [facility],[address] [place] [address] 14107 EO # 0.14 x10EE3/UL Normal 0.00 - 0.50 [facility] Comment on above: Performed By: #### 2 82246 #### [facility],[address] [place] [address] 81493 Eosinophils/100 WBC (Bld) 1.3 % Normal 0.0 - 7.0 [facility] Comment on above: Performed By: #### 2 15187 #### [facility],[address] [place] [address] Erythrocyte distribution width (RBC) [Ratio] 18.0 % High 12.0 - 15.6 [facility] Comment on above: Performed By: #### 2 81452 #### [facility],[address] [place] [address] Hematocrit (Bld) [Volume fraction] 27.9 % Low 34.0 - 46.0 [facility] Comment on above: Performed By: #### 2 39319 #### [facility],[address] [place] [address] Hemoglobin (Bld) [Mass/Vol] 9.1 g/dL Low 12.0 - 16.0 [facility] Comment on above: Performed By: #### 2 76665 #### [facility],[address] [place] [address] Lymph # 1.68 x10EE3/UL Normal 0.80 - 2.80 [facility] Comment on above: Performed By: #### 2 97260 #### [facility],[address] [place] [address] Lymphocytes/100 WBC (Bld) 16.1 % Low 20.0 - 45.0 [facility] Comment on above: Performed By: #### 2 75294 #### [facility],[address] [place], [place] [address] MANUAL DIFF N/A Normal [facility] Comment on above: Performed By: #### 2 16057 #### [facility],[address] [place], [place] [address] MCH (RBC) [Entitic mass] 27 pg Normal 27 - 33 [facility] Comment on above: Performed By: #### 2 36210 #### [facility],[address] [place], [place] [address] MCHC 33 X10 3 Normal 32 - 36 [facility] Comment on above: Performed By: #### 2 64015 #### [facility],[address] [place] [address] MCV (RBC) [Entitic vol] 83 fL Normal 80 - 99 [facility] Comment on above: Performed By: #### 2 06401 #### [facility],[address] [place] [address] [place] # 0.87 x10EE3/UL Normal 0.20 - 1.00 [facility] Comment on above: Performed By: #### 2 03377 #### [facility],[address] [place] [address] MONOS % 8.4 % Normal 0.0 - 10.0 [facility] Comment on above: Performed By: #### 2 07231 #### [facility],[address] [place] [address] Morphology Stan (Bld) [Interp] N/A Normal [facility] Comment on above: Performed By: #### 2 11319 #### [facility],[address] [place] [address] Neut # 7.69 x10EE3/UL High 1.50 - 7.10 [facility] Comment on above: Performed By: #### 2 64989 #### [place] [address] Neutrophils/100 WBC (Bld) 73.8 % Normal 46.0 - 76.0 [facility] Comment on above: Performed By: #### 2 78901 #### [place] [address] PLATELET 722 x10EE3/UL High 150 - 450 [facility] Comment on above: Performed By: #### 2 43897 #### [facility],[address],[place] [address] Platelet mean volume (Bld) [Entitic vol] 7.5 fL Normal 6.6 - 10.5 [facility] Comment on above: Result Comment: AUTO MATED DIFFERENTIAL Performed By: #### 2 34534 #### [facility],[address] [place] [address] 89248 RBC 3.37 x 10EE6/UL Low 4.10 - 5.30 [facility] Comment on above: Performed By: #### 2 66272 #### [facility],[address] [place] [address] 32583 WBC 10.4 x 10EE3/UL Normal 4.5 - 10.8 [facility] Comment on above: Performed By: #### 2 78847 #### [facility],[address] [place] [address] 65820 CMP with eGFRon 09-06-2024 AGE 38 years Normal [facility] Comment on above: Performed By: #### 2 56293 ####[facility],[address] [place] [address] 06686 Albumin [Mass/Vol] 1.9 g/dL Low 3.4 - 5.0 [facility] Comment on above: Performed By: #### 2 73757 ####[facility],[address] [place] [address] 82287 Albumin/Globulin [Mass ratio] 0.3 {ratio} Low 0.9 - 1.6 [facility] Comment on above: Performed By: #### 2 15311 ####[facility],[address] [place] [address] 51757 ALK PHOS 97 U/L Normal 46 - 116 [facility] Comment on above: Performed By: #### 2 56606 ####[facility],[address] [place] [address] 17974 ALT [Catalytic activity/Vol] 29 U/L Normal 16 - 63 [facility] Comment on above: Performed By: #### 2 16147 ####[facility],[address] [place] [address] 92351 Anion gap [Moles/Vol] 9 mmol/L Low 10 - 20 [facility] Comment on above: Performed By: #### 2 51177 ####[facility],[address] [place] [address] 72356 AST [Catalytic activity/Vol] 28 U/L Normal 13 - 39 [facility] Comment on above: Performed By: #### 2 81409 ####[facility],[address] [place] [address] 85363 B/C RATIO 21 ratio Normal 0 - 30 [facility] Comment on above: Performed By: #### 2 84473 ####[facility],[address] [place] [address] 42378 Bilirubin [Mass/Vol] 0.3 mg/dL Normal 0.2 - 1.0 [facility] Comment on above: Performed By: #### 2 85297 ####[facility],[address] [place] [address] 93477 Calcium [Mass/Vol] 8.3 mg/dL Low 8.5 - 10.1 [facility] Comment on above: Performed By: #### 2 37158 ####[facility],[address] [place] [address] 73907 Chloride [Moles/Vol] 102 mmol/L Normal 98 - 107 [facility] Comment on above: Performed By: #### 2 82179 ####[facility],[address] [place] [address] 42171 CMP with eGFR Normal [facility] Comment on above: Result Comment: COMP REHENSIVE METABOLIC PANEL Performed By: #### 2 20793 ####[facility],[address] [place] [address] 79270 CO2 [Moles/Vol] 29.5 mmol/L Normal 21.0 - 32.0 [facility] Comment on above: Performed By: #### 2 59306 ####[facility],[address] [place] [address] 17973 Creatinine [Mass/Vol] 0.84 mg/dL Normal 0.55 - 1.02 [facility] Comment on above: Performed By: #### 2 82321 ####[facility],[address] [place] [address] 61141 GFR/1.73 sq M.predicted among non-blacks MDRD (S/P/Bld) [Vol rate/Area] mL/min/{1.73_m2} Normal 60 - 999 [facility] Comment on above: Performed By: #### 2 37091 ####[facility],[address] [place], [place] [address] Result Comment: ACCO RDING TO THE NATIONAL KIDNEY DISEASE EDUCATION PROGRAM(NKDE), A NORMAL eGFR IS A VALUE GREATER THAN OR EQUAL TO 60 ML/MIN/1.73 SQ METERS. CHRONIC KIDNEY DISEASE: <60mL/MIN/1.73 SQ METERS KIDNEY FAILURE: <15mL/MIN/1.73 SQ METERS THIS TEST SHOULD ONLY BE USED FOR PATIENTS 18 YEARS OF AGE AND OLDER. Globulin (S) [Mass/Vol] 6.3 g/dL High 1.5 - 3.8 [facility] Comment on above: Performed By: #### 2 78021 ####[facility],[address] [place] [address] 37078 Glucose [Mass/Vol] 137 mg/dL High 74 - 106 [facility] Comment on above: Performed By: #### 2 49397 ####[facility],[address] [place] [address] 27700 Potassium [Moles/Vol] 3.8 mmol/L Normal 3.5 - 5.1 [facility] Comment on above: Performed By: #### 2 54524 ####[facility],[address] [place] [address] 64975 Protein [Mass/Vol] 8.2 g/dL Normal 6.4 - 8.2 [facility] Comment on above: Performed By: #### 2 83396 ####[facility],[address] [place] [address] 66000 Sodium [Moles/Vol] 137 mmol/L Normal 136 - 145 [facility] Comment on above: Performed By: #### 2 35501 ####[facility],[address] [place] [address] 23954 Urea nitrogen [Mass/Vol] 18 mg/dL Normal 7 - 18 [facility] Comment on above: Performed By: #### 2 37906 ####[facility],[address] [place] [address] 98921 MAGNESIUMon 09-06-2024 Magnesium [Mass/Vol] 2.0 mg/dL Normal 1.8 - 2.4 [facility] Comment on above: Performed By: #### 2 19534 ####[facility],[address] [place] [address] 76928 PHOSPHORUSon 09-06-2024 Phosphate [Mass/Vol] 3.6 mg/dL Normal 2.6 - 4.7 [facility] Comment on above: Performed By: #### 2 80431 #### [facility],[address] [place] [address] 61720 Culture, Blood (WB)on 2024 CUB Blood cultures x2, f rom two different sites No growth in 5 days. Normal [facility] Comment on above: Performed By: #### M 200.1000 ####[facility] [address] [place], [address] 12 Lead EKGon 08-20-2024 12 Lead EKG Normal [facility] Abdomen/Pelvis W IV Cont ONL Yon 08-20-2024 Abdomen/Pelvis W IV Cont ONLY Normal [facility] CBC W/Diff, Automatedon 07-29 STOMATOCYTE RARE Normal [facility] Comment on above: Performed By: #### L 100.0100, L700.6800, L500.4050, L501.2450, L505.5000 ####[facility] [address] [place], [address] Anisocytosis Ql (Bld) 2+ Normal [facility] Comment on above: Performed By: #### L 100.0100, L700.6800, L500.4050, L501.2450, L505.5000 ####[facility] [address] [place], [address] MICROCYTIC 1+ Normal [facility] Comment on above: Performed By: #### L 100.0100, L700.6800, L500.4050, L501.2450, L505.5000 ####[facility] [address] [place], [address] OVALOCYTE RARE Normal [facility] Comment on above: Performed By: #### L 100.0100, L700.6800, L500.4050, L501.2450, L505.5000 ####[facility] [address] [place], [address] POLYCHROMASIA 2+ Normal [facility] Comment on above: Performed By: #### L 100.0100, L700.6800, L500.4050, L501.2450, L505.5000 ####[facility] [address] [place], [address] CTA Chst, Abd, Pel W and/or WOon 08-20-2024 CTA Chst, Abd, Pel W and/or WO Normal [facility] Comprehensive Metabolic Prof ilon 08-20-2024 Albumin [Mass/Vol] 3.0 g/dL Low 3.2-5.0 [facility] Comment on above: Performed By: #### L 100.0100, L700.6800, L500.4050, L501.2450, L505.5000 ####[facility] [address] [place], [address] Albumin/Globulin [Mass ratio] 0.5 {ratio} Low 0.9-2.4 [facility] Comment on above: Performed By: #### L 100.0100, L700.6800, L500.4050, L501.2450, L505.5000 ####[facility] [address] [place], [address] ALK P 98 U/L Normal 45-117 [facility] Comment on above: Performed By: #### L 100.0100, L700.6800, L500.4050, L501.2450, L505.5000 ####[facility] [address] [place], [address] ALT [Catalytic activity/Vol] 15 U/L Normal 13-56 [facility] Comment on above: Performed By: #### L 100.0100, L700.6800, L500.4050, L501.2450, L505.5000 ####[facility] [address] [place], [address] AST [Catalytic activity/Vol] 20 U/L Normal 15-37 [facility] Comment on above: Performed By: #### L 100.0100, L700.6800, L500.4050, L501.2450, L505.5000 ####[facility] [address] [place], [address] Bilirubin [Mass/Vol] 0.30 mg/dL Normal 0.20-1.00 [facility] Comment on above: Result Comment: For patients on eltrombopag therapy, use of [facility] TBIL is not recommended. Performed By: #### L 100.0100, L700.6800, L500.4050, L501.2450, L505.5000 ####[facility] [address] [place], [address] BUN/CRE 10.9 RATIO Normal 10-20 [facility] Comment on above: Performed By: #### L 100.0100, L700.6800, L500.4050, L501.2450, L505.5000 ####[facility] [address] [place], [address] CA,Total 8.8 mg/dL Normal 8.5-10.1 [facility] Comment on above: Performed By: #### L 100.0100, L700.6800, L500.4050, L501.2450, L505.5000 ####[facility] [address] [place], [address] Chloride [Moles/Vol] 106 mmol/L Normal 98-107 [facility] Comment on above: Performed By: #### L 100.0100, L700.6800, L500.4050, L501.2450, L505.5000 ####[facility] [address] [place], [address] CO2 [Moles/Vol] 22.0 mmol/L Normal 21.0-32.0 [facility] Comment on above: Performed By: #### L 100.0100, L700.6800, L500.4050, L501.2450, L505.5000 ####[facility] [address] [place], [address] Creatinine [Mass/Vol] 1.29 mg/dL High 0.55-1.02 [facility] Comment on above: Result Comment: The validity of the calculated GFR GFRAA in patients over70 years has not been determined. Clinical correlation isessential. Performed By: #### L 100.0100, L700.6800, L500.4050, L501.2450, L505.5000 ####[facility] [address] [place], [address] ECRCL 71.07 ml/min Normal [facility] Comment on above: Performed By: #### L 100.0100, L700.6800, L500.4050, L501.2450, L505.5000 ####[facility] [address] [place], [address] EST GFR - AA 59 mL/min Low >60 [facility] Comment on above: Result Comment: Afri can [place] GFR Calc Performed By: #### L 100.0100, L700.6800, L500.4050, L501.2450, L505.5000 ####[facility] [address] [place], [address] GAP 11 Normal 5-15 [facility] Comment on above: Performed By: #### L 100.0100, L700.6800, L500.4050, L501.2450, L505.5000 ####[facility] [address] [place], [address] GFR/1.73 sq M.predicted among non-blacks MDRD (S/P/Bld) [Vol rate/Area] 48 mL/min/{1.73_m2} Low >60 [facility] Comment on above: Result Comment: Non- GFR Calc Performed By: #### L 100.0100, L700.6800, L500.4050, L501.2450, L505.5000 ####[facility] [address] [place], [address] Globulin (S) [Mass/Vol] 5.6 g/dL High 2.2-4.2 [facility] Comment on above: Performed By: #### L 100.0100, L700.6800, L500.4050, L501.2450, L505.5000 ####[facility] [address] [place], [address] Glucose [Mass/Vol] 187 mg/dL High 74-106 [facility] Comment on above: Result Comment: Fast ing Glucose result greater than or equal to 126 mg/dLsuggests DIABETES MELLITUS per A.D.A. criteria. Performed By: #### L 100.0100, L700.6800, L500.4050, L501.2450, L505.5000 ####[facility] [address] [place], [address] Potassium [Moles/Vol] 3.6 mmol/L Normal 3.5-5.1 [facility] Comment on above: Performed By: #### L 100.0100, L700.6800, L500.4050, L501.2450, L505.5000 ####[facility] [address] [place], [address] Sodium [Moles/Vol] 139 mmol/L Normal 136-145 [facility] Comment on above: Performed By: #### L 100.0100, L700.6800, L500.4050, L501.2450, L505.5000 ####[facility] [address] [place], [address] T PROT 8.6 g/dL High 6.4-8.2 [facility] Comment on above: Performed By: #### L 100.0100, L700.6800, L500.4050, L501.2450, L505.5000 ####[facility] [address] [place], [address] Urea nitrogen [Mass/Vol] 14 mg/dL Normal 7-18 [facility] Comment on above: Performed By: #### L 100.0100, L700.6800, L500.4050, L501.2450, L505.5000 ####[facility] [address] [place], [address] Emergency Department Summary on 08-20-2024 Emergency Department Summary Normal [facility] Lactic Acidon 08-20-2024 Lactate [Moles/Vol] 2.2 mmol/L Invalid Interpretation Code 0.4-1.9 [facility] Comment on above: Order Comment: Y Result Comment: Crit ical Result(s) Called at: 06:12:44 08/20/2024 by:Rossana Wood. Results read back by same. Performed By: #### L 503.6005 ####[facility] [address] [place], [address] Lipaseon 08-20-2024 Lipase [Catalytic activity/Vol] 26 U/L Low 73-393 [facility] Comment on above: Performed By: #### L 100.0100, L700.6800, L500.4050, L501.2450, L505.5000 ####[facility] [address] [place], [address] Partial Thromboplast Timeon 08-20-2024 aPTT Coag (Bld) [Time] 20.9 s Low 24.1-36.2 [facility] Comment on above: Performed By: #### L 300.3900, L300.4310 ####[facility] [address] [place], [address] ,Serum,hCG Quali.on 08-20-2024 HCG, SERUM QUAL Negative Normal [facility] Comment on above: Performed By: #### L 100.0100, L700.6800, L500.4050, L501.2450, L505.5000 ####[facility] [address] [place], [address] Prothrombin Time w/INRon INR Coag (PPP) [Relative time] 1.2 {INR} Normal [facility] Comment on above: Performed By: #### L 300.3900, L300.4310 ####[facility] [address] [place], [address] PT Coag (PPP) [Time] 14.9 s Normal 11.7-14.9 [facility] Comment on above: Performed By: #### L 300.3900, L300.4310 ####[facility] [address] [place], [address] Urinalysis, Completeon 08-20 BACTERIA 3+ /hpf Normal None Seen [facility] Comment on above: Order Comment: CLEAN CATCH Performed By: #### L 400.0001 ####[facility] [address] [place], [address] EPI,SQUAMOUS 0-5 SEEN Normal 5-10 [facility] Comment on above: Order Comment: CLEAN CATCH Performed By: #### L 400.0001 ####[facility] [address] [place], [address] RBC 0-5 SEEN Normal 0-5 [facility] Comment on above: Order Comment: CLEAN CATCH Performed By: #### L 400.0001 ####[facility] [address] [place], [address] Mucus Ql (Urine sed) 0 SEEN Normal [facility] Comment on above: Order Comment: CLEAN CATCH Performed By: #### L 400.0001 ####[facility] [address] [place], [address] WBC 0 SEEN Normal 0-5 [facility] Comment on above: Order Comment: CLEAN CATCH Performed By: #### L 400.0001 ####[facility] [address] [place], [address] Urine Drug Screen (VISTA)on 08-20-2024 AMPHETAMINES Negative Normal <1000 ng/mL [facility] Comment on above: Performed By: #### L 100.0100, L700.6800, L500.4050, L501.2450, L505.5000 ####[facility] [address] [place], [address] BARBITIURATES Negative Normal < 200 ng/mL [facility] Comment on above: Performed By: #### L 100.0100, L700.6800, L500.4050, L501.2450, L505.5000 ####[facility] [address] [place], [phone] BENZODIAZIPINE Negative Normal < 200 ng/mL [facility] Comment on above: Performed By: #### L 100.0100, L700.6800, L500.4050, L501.2450, L505.5000 ####[facility] [address] [place] [address] COCAINE Negative Normal < 300 ng/mL [facility] Comment on above: Performed By: #### L 100.0100, L700.6800, L500.4050, L501.2450, L505.5000 ####[facility] [address] [place] [address] ECSTACY Negative Normal < 500 ng/mL [facility] Comment on above: Performed By: #### L 100.0100, L700.6800, L500.4050, L501.2450, L505.5000 ####[facility] [address] [place] [address] METHADONE Negative Normal < 300 ng/mL [facility] Comment on above: Performed By: #### L 100.0100, L700.6800, L500.4050, L501.2450, L505.5000 ####[facility] [address] [place] [address] OPIATES Positive Abnormal < 300 ng/mL [facility] Comment on above: Performed By: #### L 100.0100, L700.6800, L500.4050, L501.2450, L505.5000 ####[facility] [address] [place] [address] PCP Negative Normal < 25 ng/mL [facility] Comment on above: Performed By: #### L 100.0100, L700.6800, L500.4050, L501.2450, L505.5000 ####[facility] [address] [place], [address] THC Negative Normal < 50 ng/mL [facility] Comment on above: Performed By: #### L 100.0100, L700.6800, L500.4050, L501.2450, L505.5000 ####[facility] [address] [place], [address] VISTA UDS PH 7 Normal [facility] Comment on above: Performed By: #### L 100.0100, L700.6800, L500.4050, L501.2450, L505.5000 ####[facility] [address] [place], [address] Emergency Department Summary on 08-16-2024 Emergency Department Summary Normal [facility] Foot min 3 Viewson 5 Foot min 3 Views Normal [facility] Comprehensive metabolic 2000 panelon 08-08-2024 Albumin [Mass/Vol] 3.8 g/dL Low 3.9 - 4.9 g/dL [facility] ALP [Catalytic activity/Vol] 109 U/L 34 - 123 U/L [facility] ALT [Catalytic activity/Vol] 13 U/L 7 - 38 U/L [facility] Anion gap [Moles/Vol] 12 mmol/L 8 - 15 mmol/L [facility] AST [Catalytic activity/Vol] 16 U/L 13 - 35 U/L [facility] Bilirubin [Mass/Vol] 0.3 mg/dL 0.2 - 1.3 mg/dL [facility] Calcium [Mass/Vol] 9.3 mg/dL 8.5 - 10. 2 mg/dL [facility] Chloride [Moles/Vol] 104 mmol/L 98 - 107 mmol/L [facility] CO2 [Moles/Vol] 23 mmol/L 22 - 30 mmol/L [facility] Creatinine [Mass/Vol] 1.01 mg/dL High 0.58 - 0.96 mg/dL [facility] GFR/1.73 sq M.predicted among non-blacks MDRD (S/P/Bld) [Vol rate/Area] 72 mL/min/{1.73_m2} - PINF [facility] Comment on above: Estimated Glomerular Filtration [...] [Mass/Vol] 85 mg/dL 74 - 99 mg/dL [facility] Comment on above: The [place] Diabete s Association (ADA) provides guidance for [...] Standards of Medical Care in Diabetes 2016, [place] [employer]. Diabetes Care. 2016.39(Suppl 1). Potassium [Moles/Vol] 4 mmol/L 3.7 - 5.1 mmol/L [facility] Protein [Mass/Vol] 8.1 g/dL High 6.3 - 8.0 g/dL [facility] Sodium [Moles/Vol] 139 mmol/L 136 - 144 mmol/L [facility] Urea nitrogen [Mass/Vol] 6 mg/dL Low 7 - 21 mg/dL [facility] Iron and Iron binding capaci ty panelon 08-08-2024 Iron [Mass/Vol] 19 ug/dL Low 41 - 186 ug/dL [facility] Iron binding capacity [Mass/Vol] 483 ug/dL High 232 - 386 ug/dL [facility] Iron/TIBC [Molar ratio] 3.9 % Low 15.0 - 57.0 % [facility] No Panel Informationon 08-08 Interpretation and review of laboratory results Abnormal [facility] CBC W Auto Differential pane l (Bld)on 08-07-2024 Basophils (Bld) [#/Vol] 0.06 10*3/uL [facility] Basophils/100 WBC (Bld) 1 % [facility] Differential cell count method Nom (Bld) Auto [facility] Eosinophils (Bld) [#/Vol] 0.19 10*3/uL [facility] Eosinophils/100 WBC (Bld) 3.3 % [facility] Erythrocyte distribution width (RBC) [Ratio] 19.2 % High 11.5 - 15.0 % [facility] Hematocrit (Bld) [Volume fraction] 31.5 % Low 36.0 - 46.0 % [facility] Hemoglobin (Bld) [Mass/Vol] 8.5 g/dL Low 11.5 - 15.5 g/dL [facility] Immature granulocytes (Bld) [#/Vol] 0.03 10*3/uL [facility] Immature granulocytes/100 WBC (Bld) 0.5 % [facility] Interpretation and review of laboratory results Abnormal [facility] Lymphocytes (Bld) [#/Vol] 1.04 10*3/uL [facility] Lymphocytes/100 WBC (Bld) 17.8 % [facility] MCH (RBC) [Entitic mass] 19.3 pg Low 26.0 - 34.0 pg [facility] MCHC (RBC) [Mass/Vol] 27 g/dL Low 30.5 - 36.0 g/dL [facility] MCV (RBC) [Entitic vol] 71.4 fL Low 80.0 - 100.0 fL [facility] Monocytes (Bld) [#/Vol] 0.4 10*3/uL [facility] Monocytes/100 WBC (Bld) 6.9 % [facility] Neutrophils (Bld) [#/Vol] 4.11 10*3/uL [facility] Neutrophils/100 WBC (Bld) 70.5 % [facility] Nucleated RBC (Bld) [#/Vol] [facility] Nucleated RBC/100 WBC (Bld) [Ratio] 0 % /100 WBC [facility] Platelet mean volume (Bld) [Entitic vol] 9 fL 9.0 - 12.7 fL [facility] Platelets (Bld) [#/Vol] 602 10*3/uL High [facility] RBC (Bld) [#/Vol] 4.41 10*6/uL 3.90 - 5.2 0 m/uL [facility] WBC (Bld) [#/Vol] 5.83 10*3/uL [facility] HbA1c (Bld)on 08-07-2024 Average glucose Estimated from glycated hemoglobin (Bld) [Mass/Vol] 123 mg/dL [facility] Comment on above: eAG: (Estimated aver age glucose) is a calculated value from HgbA1c and is human resources representative of the average blood glucose level in the last 2-3 month period. HbA1c (Bld) [Mass fraction] 5.9 % High 4.3 - 5.6 % [facility] Comment on above: [place] Diabetes As sociation guidelines indicate that patients with HgbA1c in the range 5.7-6.4% are at increased risk for development of diabetes, and intervention by lifestyle modification may be beneficial. HgbA1c greater or equal to 6.5% is considered diagnostic of diabetes. Interpretation and review of laboratory results Abnormal [facility] 12 Lead EKGon 07-30-2024 12 Lead EKG Normal [facility] Basic Metabolic Profile (BMP )on 07-30-2024 Potassium [Moles/Vol] 2.7 mmol/L Invalid Interpretation Code 3.5-5.1 [facility] Comment on above: Result Comment: RESU LTS CALLED TO NONI 07/30/241705 Jami Draper.REPORT READ BACK BY . SAME AMENDED REPORT 07/30/241705 K previously reported as: 2.7 *L mmol/L Performed By: #### L 100.0100, L700.6800, L500.2500, L300.3900, L300.4310 ####[facility] [address] [place], [address] CBC W/Diff, Automatedon Absolute Lymph 1.10 X10 3/uL Normal 0.83-4.51 [facility] Comment on above: Performed By: #### L 100.0100, L700.6800, L500.2500, L300.3900, L300.4310 ####[facility] [address] [place], [address] Absolute Neut 8.0 X10 3/uL High 2.0-7.7 [facility] Comment on above: Performed By: #### L 100.0100, L700.6800, L500.2500, L300.3900, L300.4310 ####[facility] [address] [place], [address] Basophils/100 WBC (Bld) 0.6 % Normal 0-1 [facility] Comment on above: Performed By: #### L 100.0100, L700.6800, L500.2500, L300.3900, L300.4310 ####[facility] [address] [place], [address] Eosinophils/100 WBC (Bld) 1.6 % Normal 0-5 [facility] Comment on above: Performed By: #### L 100.0100, L700.6800, L500.2500, L300.3900, L300.4310 ####[facility] [address] [place], [address] Erythrocyte distribution width (RBC) [Ratio] 18.5 % High 11.6-14.6 [facility] Comment on above: Performed By: #### L 100.0100, L700.6800, L500.2500, L300.3900, L300.4310 ####[facility] [address] [place], [address] Hematocrit (Bld) [Volume fraction] 29.3 % Low 37-47 [facility] Comment on above: Performed By: #### L 100.0100, L700.6800, L500.2500, L300.3900, L300.4310 ####[facility] [address] [place], [address] Hemoglobin (Bld) [Mass/Vol] 8.3 g/dL Low 12.0-15.0 [facility] Comment on above: Performed By: #### L 100.0100, L700.6800, L500.2500, L300.3900, L300.4310 ####[facility] [address] [place], [address] IG% 0.400 Normal 0.0-0.9 [facility] Comment on above: Result Comment: IG% - Immature Granulocytes (promyelocytes, myelocytes andmetamyelocytes) > 1% indicates that a LEFT SHIFT is Present. Performed By: #### L 100.0100, L700.6800, L500.2500, L300.3900, L300.4310 ####[facility] [address] [place], [address] Lymphocytes/100 WBC (Bld) 11.0 % Low 19-41 [facility] Comment on above: Performed By: #### L 100.0100, L700.6800, L500.2500, L300.3900, L300.4310 ####[facility] [address] [place], [address] MCH (RBC) [Entitic mass] 19.6 pg Low 27.0-32.0 [facility] Comment on above: Performed By: #### L 100.0100, L700.6800, L500.2500, L300.3900, L300.4310 ####[facility] [address] [place], [address] MCHC (RBC) [Mass/Vol] 28.3 g/dL Low 32-36 [facility] Comment on above: Performed By: #### L 100.0100, L700.6800, L500.2500, L300.3900, L300.4310 ####[facility] [address] [place], [address] MCV (RBC) [Entitic vol] 69.1 fL Low 81-99 [facility] Comment on above: Performed By: #### L 100.0100, L700.6800, L500.2500, L300.3900, L300.4310 ####[facility] [address] [place], [address] Monocytes/100 WBC (Bld) 7.1 % Normal 0-10 [facility] Comment on above: Performed By: #### L 100.0100, L700.6800, L500.2500, L300.3900, L300.4310 ####[facility] [address] [place], [address] Neutrophils/100 WBC (Bld) 79.3 % High 47-70 [facility] Comment on above: Performed By: #### L 100.0100, L700.6800, L500.2500, L300.3900, L300.4310 ####[facility] [address] [place], [address] Nucleated RBC (Bld) [#/Vol] 0 10*3/uL Normal 0-5 [facility] Comment on above: Performed By: #### L 100.0100, L700.6800, L500.2500, L300.3900, L300.4310 ####[facility] [address] [place], [address] Platelet mean volume (Bld) [Entitic vol] 8.9 fL Normal 6.2-12.0 [facility] Comment on above: Performed By: #### L 100.0100, L700.6800, L500.2500, L300.3900, L300.4310 ####[facility] [address] [place], [address] Platelets (Bld) [#/Vol] 466 10*3/uL High 150-450 [facility] Comment on above: Performed By: #### L 100.0100, L700.6800, L500.2500, L300.3900, L300.4310 ####[facility] [address] [place], [address] RBC (Bld) [#/Vol] 4.24 10*6/uL Normal 4.2-5.4 [facility] Comment on above: Performed By: #### L 100.0100, L700.6800, L500.2500, L300.3900, L300.4310 ####[facility] [address] [place], [address] RDW SD 45.1 fl High 35.1-43.9 [facility] Comment on above: Performed By: #### L 100.0100, L700.6800, L500.2500, L300.3900, L300.4310 ####[facility] [address] [place], [address] WBC (Bld) [#/Vol] 10.0 10*3/uL Normal 4.4-11.0 [facility] Comment on above: Performed By: #### L 100.0100, L700.6800, L500.2500, L300.3900, L300.4310 ####[facility] [address] [place], [address] Chest 1 View (Portable)on Chest 1 View (Portable) Normal [facility] Emergency Department Summary on 07-30-2024 Emergency Department Summary Normal [facility] Ferritinon 07-30-2024 Ferritin [Mass/Vol] 11 ng/mL Normal 8-252 [facility] Comment on above: Performed By: #### L 503.6030, L503.1093 ####[facility] [address] [place], [address] Iron+Iron Binding Capacityon 07-30-2024 Iron [Mass/Vol] 12 ug/dL Low 50-170 [facility] Comment on above: Performed By: #### L 503.6030, L503.6550 ####[facility] [address] [place], [address] IRON SATURATION 2.5 Low 15.0-55.0 [facility] Comment on above: Performed By: #### L 503.6030, L503.6550 ####[facility] [address] [place], [address] TIBC 480 ug/dL High 250-450 [facility] Comment on above: Performed By: #### L 503.6030, L503.6550 ####[facility] [address] [place], [address] Partial Thromboplast Timeon 07-30-2024 aPTT Coag (Bld) [Time] 28.8 s Normal 24.1-36.2 [facility] Comment on above: Performed By: #### L 100.0100, L700.6800, L500.2500, L300.3900, L300.4310 ####[facility] [address] [place], [address] ,Serum,hCG Quali.on 07-30-2024 HCG, SERUM QUAL Negative Normal [facility] Comment on above: Performed By: #### L 100.0100, L700.6800, L500.2500, L300.3900, L300.4310 ####[facility] [address] [place], [address] Prothrombin Time w/INRon INR Coag (PPP) [Relative time] 1.1 {INR} Normal [facility] Comment on above: Performed By: #### L 100.0100, L700.6800, L500.2500, L300.3900, L300.4310 ####[facility] [address] [place], [address] PT Coag (PPP) [Time] 14.0 s Normal 11.7-14.9 [facility] Comment on above: Performed By: #### L 100.0100, L700.6800, L500.2500, L300.3900, L300.4310 ####[facility] [address] 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 Awaiting response Allergies As of Date: 10/01/2022 (No Known Allergies) Date Reviewed: 09/27/2022 Reviewed by: Cassy Chicas LPN - Fully Assessed Reason for Visit: 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 [3602] Cmt: ECT Prescriptions as [...] by SHANDRA OKEEFE on 10/01/22 [facility] CNPN Telephone (MMPRPO) DALY EVANS ([id number]) 1985 F T Date Time Provider Department 10/01/22 SHANDRA OKEEFE MMPRPO During your visit today, we recorded the following information about you: Shandra Okeefe RN 10/22/2022 9:51 AM Addendum Faxed PA and associated clinicals to [facility] at [phone]. 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 The patient completed Some college. The patient described their childhood as 'ideal'. The patient lives with a roommate in an house (owned by roommate). Feels safe. No guns The patient has 1 child (10yrs). Shared custody with father. 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 No disability. Service: None Legal: 18 - 2 charges of drug trafficking. No correction time. No DUI/TRAVON Trauma/Abuse: Denies Psychosocial Supports: [...] psych meds in 2017 2) 2017 @ [place] for SI (pink slipped from crisis line) 3) 2021 - [place] for SI # of past suicide attempts and methods used:OD in 2017 Intensive outpatient program: 2018 at [place] - didn't think it was helpful Residential treatment: Denies Prior Diagnosis: Anxiety Disorder, Bipolar Affective Disorder, Borderline Personality Disorder, and Panic Disorder Prior Provider: Followed by PCP Fredrick Boland. Referred to current psych provider. Therapist: Followed at [facility] ([facility] by [facility]. Monthly check-in Past psychotherapy experience: Extensive Current Tripe Cooker: None Electroconvulsive therapy (ECT): Denies Transcranial magnetic [...] start on next (more content not included)... [facility] HISTORY PHYSICALon 3 HISTORY PHYSICAL HNO ID: [id number] Author: Esa Guillen APRN.DIRECTOR OF CLOUD SERVICES Service: ? Author Type: Nurse Practitioner Type: [...] REFERRAL SOURCE: Psychiatrist - Clayton Granados CNP ([facility]). Last visit 08/16/22 CHIEF COMPLAINT: Treatment [...] The patient was born and raised in [place]. The patient completed Some college. The patient described their childhood as 'ideal'. The patient lives with a roommate in an house (owned by roommate). Feels safe. No guns The patient has 1 child (10yrs). Shared custody with father. 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 No disability. Service: None Legal: 18 - 2 charges of drug trafficking. No correction time. No DUI/TRAVON Trauma/Abuse: Denies Psychosocial Supports: [...] psych meds in 2017 2) 2017 @ [place] for SI (pink slipped from crisis line) 3) 2021 - [place] for SI # of past suicide attempts and methods used:OD in 2017 Intensive outpatient program: 2018 at [place] - didn't think it was helpful Residential treatment: Denies Prior Diagnosis: Anxiety Disorder, Bipolar Affective Disorder, Borderline Personality Disorder, and Panic Disorder Prior Provider: Followed by PCP Fredrick Boland. Referred to current psych provider. Therapist: Followed at [facility] (practice) by Evans. Monthly check-in Past psychotherapy experience: Extensive Current Tripe Cooker: None Electroconvulsive therapy (ECT): Denies Transcranial magnetic [...] week and st (more content not included)... [facility] 08-24-2022 [facility] Telephone (PSYRL) DALY EVANS ([id number]) 1985 F [facility] Date Time Provider Department 08/24/22 ARIELLA CORTES PSYRL During your visit today, we recorded the following information about you: Ariella Cortes RN 08/24/2022 1:42 PM Signed INTERNAL ([facility]) ECT Referral Received: 08/18/22 - scanned into [facility] From: Clayton Granados @ [facility] ECT Eval: TBD Left voicemail requesting callback in ECT office at [phone] to schedule ECT eval. Awaiting patient response. Ariella Cortes RN 08/30/2022 12:24 PM Addendum Scheduled ECT Eval scheduled on 09/30/22 @ 10am with Esa Guillen Patient encouraged to contact RN Network Contract Manager at [phone] should any questions or concerns arise between now and then. Ariella Cortes RN 09/30/2022 3:22 PM Signed Patient to receive ECT and related care @ [facility]. MM ECT RN notified AND aware. INTERNAL ([facility]) ECT Referral Received: 08/18/22 - scanned into Epic From: Clayton Granados @ [facility] ECT Eval: 09/30/22 with Esa Guillen [...] Encounter Status:Closed by ARIELLA CORTES on 08/24/22 [facility] TOX SCREEN ROUT URon 022 Amphetamines Confirm (U) [Mass/Vol] Negative Negative [facility] Barbiturates Urine Negative Negative [facility] Benzodiazepines Urine Negative Negative [facility] Cannabinoids, Urine Positive Abnormal Negative [facility] [place] Cocaine Ql (U) Negative Negative [facility] Ethanol (U) [Mass/Vol] <11 mg/dL [facility] Opiates Screen Ql (U) Negative Negative [facility] oxyCODONE cutoff Screen (U) [Mass/Vol] Negative Negative [facility] Phencyclidine Ql (U) Negative Negative [facility] HEP B SURFACE ANTIGENon 04-28 HEP B SURFACE ANTIGEN Non-Reactive [facility] Comment on above: Result Comment: NONR EACTIVE - NEGATIVE FOR HEPATITIS B SURFACE ANTIGEN Performed By: #### H BSAG, HCVAB, HIV #### [facility] [address] [place] [address] HEPATITIS C ABon 05-25-2021 HEPATITIS C AB Non-Reactive [facility] Comment on above: Result Comment: NONR EACTIVE - <0.80 INDEX IS CONSIDERED NEGATIVE FOR IGG ANTIBODIES TO HCV. Performed By: #### M N, ALC #### [facility] [address] [place] [address] HIV AG/AB COMBOon 05-25-2021 HIV AG/AB COMBO Non-Reactive Normal [facility] Comment on above: Result Comment: NONR EACTIVE - NEGATIVE FOR ANTIBODIES TO HIV-1 AND HIV-2 AND p24 ANTIGEN. Performed By: #### M N, ALC #### [address] [address] ALCOHOLon 05-21-2021 Ethanol [Mass/Vol] 169.0 mg/dL Normal [facility] Comment on above: Result Comment: < 3 mg/dl NONE DETECTED 50-100 mg/dl MAY SHOW SIGNS OF INTOXICATION 300-500 mg/dl COMATOSE LEVEL Performed By: #### M N, ALC #### [address] [address] CBC with AUTO DIFFon 021 BAS0 % 0.30 % Normal 0-2 [facility] Comment on above: Performed By: #### C BC, DIFF (MANUAL) #### [address] [address] Basophils (Bld) [#/Vol] 0.0 10*3/uL Normal 0-0.1 [facility] Comment on above: Performed By: #### C BC, DIFF (MANUAL) #### [address] [address] Eosinophils (Bld) [#/Vol] 0.0 10*3/uL Normal 0.0-1.80 [facility] Comment on above: Performed By: #### C BC, DIFF (MANUAL) #### [address] [address] Eosinophils/100 WBC (Bld) 0.1 % Normal 0-8 [facility] Comment on above: Performed By: #### C BC, DIFF (MANUAL) #### [address] [address] GRAN # 11.7 K/uL High 2.2-9.1 [facility] Comment on above: Performed By: #### C BC, DIFF (MANUAL) #### [address] [address] GRAN % 79.6 % Normal 42-80 [facility] Comment on above: Performed By: #### C BC, DIFF (MANUAL) #### [address] [address] Hematocrit (Bld) [Volume fraction] 42.0 % Normal 37.0-47.0 [facility] Comment on above: Performed By: #### C BC, DIFF (MANUAL) #### [address] [address] Hemoglobin (Bld) [Mass/Vol] 14.3 g/dL Normal 12.0-16.0 [facility] Comment on above: Performed By: #### C BC, DIFF (MANUAL) #### [address] [address] Lymphocytes (Bld) [#/Vol] 2.2 10*3/uL Normal 1.0-4.0 [facility] Comment on above: Performed By: #### C BC, DIFF (MANUAL) #### [address] [address] Lymphocytes/100 WBC (Bld) 15.1 % Low 16-48 [facility] Comment on above: Performed By: #### C BC, DIFF (MANUAL) #### [address] [address] MCV (RBC) [Entitic vol] 93.2 fL Normal 80-97 [facility] Comment on above: Performed By: #### C BC, DIFF (MANUAL) #### [address] [address] MEAN CORPUSCULAR HGB 31.8 pg Normal 26.0-32.0 [facility] Comment on above: Performed By: #### C BC, DIFF (MANUAL) #### [address] [address] MEAN CORPUSCULAR HGB CONC 34.1 g/dL Normal 31.0-36.0 [facility] Comment on above: Performed By: #### C BC, DIFF (MANUAL) #### [address] [address] Monocytes (Bld) [#/Vol] 0.7 10*3/uL Normal 0.1-1.7 [facility] Comment on above: Performed By: #### C BC, DIFF (MANUAL) #### [address] [address] Monocytes/100 WBC (Bld) 4.9 % Normal 3-9 [facility] Comment on above: Performed By: #### C BC, DIFF (MANUAL) #### [facility] [address] [place] [address] Platelet mean volume (Bld) [Entitic vol] 6.9 fL Normal 6.6-10.5 [facility] Comment on above: Performed By: #### C BC, DIFF (MANUAL) #### [facility] [address] [place] [address] Platelets (Bld) [#/Vol] 418 10*3/uL Normal 140-450 [facility] Comment on above: Performed By: #### C BC, DIFF (MANUAL) #### [address] [place] [address] RBC (Bld) [#/Vol] 4.51 10*6/uL Normal 4.20-5.50 [facility] Comment on above: Performed By: #### C BC, DIFF (MANUAL) #### [address] [place] [address] RED CELL DISTRI WIDTH 13.0 % Normal 11.0-15.5 [facility] Comment on above: Performed By: #### C BC, DIFF (MANUAL) #### [address] [place] [address] WBC (Bld) [#/Vol] 14.7 10*3/uL High 4.0-11.0 [facility] Comment on above: Performed By: #### C BC, DIFF (MANUAL) #### [address] [place] [address] COMPREHENSIVE METABOLIC PANE Derick 05-21-2021 Albumin [Mass/Vol] 3.5 g/dL Normal 3.4-5.0 [facility] Comment on above: Performed By: #### M N, ALC #### [address] [place] [address] Albumin/Globulin [Mass ratio] 0.9 {ratio} Low 1.1-1.8 [facility] Comment on above: Performed By: #### M N, ALC #### [facility] [address] [place] [address] ALP [Catalytic activity/Vol] 64 U/L Normal 45-117 [facility] Comment on above: Performed By: #### M N, ALC #### [address] [place] [address] ALT [Catalytic activity/Vol] 29 U/L Normal 12-78 [facility] Comment on above: Performed By: #### M N, ALC #### [facility] [address] [place] [address] Anion gap [Moles/Vol] 9.0 mmol/L Low 11-23 [facility] Comment on above: Performed By: #### M N, ALC #### [facility] [address] [place] [address] AST [Catalytic activity/Vol] 20 U/L Normal 15-37 [facility] Comment on above: Performed By: #### M N, ALC #### [facility] [address] [place] [address] Bilirubin [Mass/Vol] 0.3 mg/dL Normal 0.2-1.0 [facility] Comment on above: Performed By: #### M N, ALC #### [address] [place] [address] Calcium [Mass/Vol] 8.5 mg/dL Normal 8.5-10.1 [facility] Comment on above: Performed By: #### M N, ALC #### [facility] [address] [place] [address] Chloride [Moles/Vol] 107 mmol/L Normal 98-107 [facility] Comment on above: Performed By: #### M N, ALC #### [facility] [address] [place] [address] CO2 [Moles/Vol] 27.0 mmol/L Normal 21-32 [facility] Comment on above: Performed By: #### M N, ALC #### [facility] [address] [place] [address] Creatinine [Mass/Vol] 0.80 mg/dL Normal 0.55-1.02 [facility] Comment on above: Performed By: #### M N, ALC #### [facility] [address] [place] [address] GFR > 60.0 [facility] Comment on above: Performed By: #### M N, ALC #### [facility] [address] [place] [address] GFR AM > 60.0 [facility] Comment on above: Result Comment: THE NORMAL LEVEL OF GFR VARIES ACCORDING TO AGE, SEX, AND BODY SIZE. A GFR LEVEL OF LESS THAN 60 ML/MIN REPRESENTS LOSS OF THE ADULT LEVEL OF NORMAL KIDNEY FUNCTION. Performed By: #### M N, ALC #### [facility] [address] [place] [address] Globulin (S) [Mass/Vol] 4.2 g/dL Normal 2.5-4.6 [facility] Comment on above: Performed By: #### M N, ALC #### [address] [place] [address] Glucose [Mass/Vol] 114 mg/dL High 70-100 [facility] Comment on above: Performed By: #### M N, ALC #### [address] [place] [address] Potassium [Moles/Vol] 3.3 mmol/L Low 3.5-5.1 [facility] Comment on above: Performed By: #### M N, ALC #### [address] [place] [address] Protein [Mass/Vol] 7.7 g/dL Normal 6.0-8.3 [facility] Comment on above: Performed By: #### M N, ALC #### [address] [place] [address] Sodium [Moles/Vol] 140 mmol/L Normal 136-145 [facility] Comment on above: Performed By: #### M N, ALC #### [address] [place] [address] Urea nitrogen [Mass/Vol] 6.0 mg/dL Low 7-18 [facility] Comment on above: Performed By: #### M N, ALC #### [address] [place] [address] CPKon 05-21-2021 CPK 359 U/L High 26-192 [facility] Comment on above: Performed By: #### C PK #### [facility] [address] [place] [address] DIFFERENTIALon 05-21-2021 IMMATURE GRANS NONE SEEN Normal [facility] Comment on above: Performed By: #### C BC, DIFF (MANUAL) #### [facility] [address] [place] [address] PLATELET ESTIMATE NORMAL Normal [facility] Comment on above: Performed By: #### C BC, DIFF (MANUAL) #### [address] [place] [address] RBC morphology finding Nom (Bld) ESSENTIALLY NORMAL Normal [facility] Comment on above: Performed By: #### C BC, DIFF (MANUAL) #### [facility] [address] [place] [address] Band form neutrophils/100 WBC (Bld) 6 % Normal 0-10 [facility] Comment on above: Performed By: #### C BC, DIFF (MANUAL) #### [facility] [address] [place] [address] Eosinophils/100 WBC (Bld) 1 % Normal 0-8 [facility] Comment on above: Performed By: #### C BC, DIFF (MANUAL) #### [facility] [address] [place] [address] Lymphocytes/100 WBC (Bld) 11 % Low 16-48 [facility] Comment on above: Performed By: #### C BC, DIFF (MANUAL) #### [address] [place] [address] Monocytes/100 WBC (Bld) 6 % Normal 3-9 [facility] Comment on above: Performed By: #### C BC, DIFF (MANUAL) #### [address] [place] [address] Neutrophils/100 WBC (Bld) 76 % Normal 42-80 [facility] Comment on above: Performed By: #### C BC, DIFF (MANUAL) #### [address] [place] [address] TOTAL CELLS COUNTED 100 #CELLS Normal [facility] Comment on above: Performed By: #### C BC, DIFF (MANUAL) #### [address] [place] [address] ED.PDOCon 05-21-2021 ED.PDOC DALY EVANS [id number] Attending provider: [facility] [id number] Bebeto Tafoya 1985 35 DOS: 05/21/21 Hx/Exam [...] (Bebeto Tafoya) 05/21/21 09:51 LOVER,DALY Estrella Female [id number] Ordering physician: Yohana Bennett LOC:ER [id number] Attending physician: 1985 35 DO S: 05/21/21 [facility]#: [id number] Exam/Proc: HEAD W/O CONTRAST Dept: COMPUTED TOMOGRAPHY EXAMINATION: CT OF THE HEAD WITHOUT XKVETHHM01/25/2021 8:[address] HEAD/BRAIN WITHOUT CONTRAST COMPARISON: [...] 05/21/2021 8:33:15 AM EST Workstation ID : [id number] REPORT SIGNATURE ON FILE Electronically Signed Date/Time: [...] police report and notes to this point. [place] slip written based on patient self-harm, statement of wanti (more content not included)... Normal [facility] HCG URINEon 05-21-2021 Beta HCG ( test) Ql (U) Negative Normal [facility] Comment on above: Order Comment: What Is Urine Source? Clean Catch [place] Performed By: #### H CGUR #### [address] [address] HEAD W/O CONTRASTon 05-21-20 21 HEAD W/O CONTRAST CRISTINADALYMANAN Grandasameer hakeem [id number] Ordering physician: Yohana Bennett LOC:ER [id number] Attending physician: 1985 35 DO S: 05/21/21 Acc#: [id number] Exam/Proc: HEAD W/O CONTRAST Dept: COMPUTED TOMOGRAPHY EXAMINATION: CT OF THE HEAD WITHOUT NCZTEXLH40/25/2021 8:[address] HEAD/BRAIN WITHOUT CONTRAST COMPARISON: [...] 05/21/2021 8:33:15 AM EST Workstation ID : [id number] REPORT SIGNATURE ON FILE Electronically Signed Date/Time: 05/21/21832 Dictated Date/time: 05/21/21829 CC: Normal [facility] URINE DRUG SCREENon 05-21-20 21 AMPHETAMINES Positive Abnormal [facility] Comment on above: Order Comment: What Is Urine Source? Random Performed By: #### U DRGS #### [address] [address] Other Comment: URINE DRUG SCREENS ARE FOR [...] and can be ordered separately. BARBITURATES Negative [facility] Comment on above: Order Comment: What Is Urine Source? Random Performed By: #### U DRGS #### [address] [address] Other Comment: URINE DRUG SCREENS ARE FOR [...] and can be ordered separately. BENZODIAZEPINES Negative [facility] Comment on above: Order Comment: What Is Urine Source? Random Performed By: #### U DRGS #### [address] [address] Other Comment: URINE DRUG SCREENS ARE FOR [...] and can be ordered separately. COCAINE Negative [facility] Comment on above: Order Comment: What Is Urine Source? Random Performed By: #### U DRGS #### [facility] [address] [place] [address] Other Comment: URINE DRUG SCREENS ARE FOR [...] and can be ordered separately. METHADONE Negative [facility] Comment on above: Order Comment: What Is Urine Source? Random Performed By: #### U DRGS #### [facility] [address] [place] [address] Other Comment: URINE DRUG SCREENS ARE FOR [...] and can be ordered separately. OPIATES Negative [facility] Comment on above: Order Comment: What Is Urine Source? Random Performed By: #### U DRGS #### [facility] [address] [place] [address] Other Comment: URINE DRUG SCREENS ARE FOR [...] and can be ordered separately. PHENCYCLIDINE Negative [facility] Comment on above: Order Comment: What Is Urine Source? Random Performed By: #### U DRGS #### [facility] [address] [place] [address] Other Comment: URINE DRUG SCREENS ARE FOR [...] and can be ordered separately. THC Negative [facility] Comment on above: Order Comment: What Is Urine Source? Random Performed By: #### U DRGS #### [address] [address] Other Comment: URINE DRUG SCREENS ARE FOR [...] DRG SCREEN CUT OFF SEE BELOW Normal [facility] Comment on above: Order Comment: What Is Urine Source? Random Performed By: #### U DRGS #### [address] [address] Other Comment: URINE DRUG SCREENS ARE FOR [...] be ordered separately. [facility]RIST-LEFT CMPL MIN 3 VIEWS DALY EVANS Female [id number] Ordering physician: Yohana Bennett LOC:ER [id number] Attending physician: 1985 35 DO S: 05/21/21 Acc#: [id number] Exam/Proc: WRIST-LEFT CMPL MIN 3 VIEWS Dept: [...] 05/21/2021 8:50:09 AM EST Workstation ID : [id number] REPORT SIGNATURE ON FILE Electronically Signed Date/Time: 05/21/2150 Dictated Date/time: 05/21/21842 CC: [facility] XR Knee - left 4 Viewson IMPRESSION: Findings are suggestive of mild degenerative changes in the left knee. Rayon Tester: NANCY Transcribe Date/Time: Mar 12 2021 11:00A Dictated by : MATTY CASTELLON MD This examination was interpreted and the report reviewed and electronically signed by: MATTY CASTELLON MD on Mar 12 2021 11:01AM [facility] * * *Final [...] mild degenerative changes in the left knee. Rayon Tester: NANCY Transcribe Date/Time: Mar 12 2021 11:00A Dictated by : MATTY CASTELLON MD This examination was interpreted and the report reviewed and electronically signed by: MATTY CASTELLON MD on Mar 12 2021 11:01AM EST [facility] Radiology Study observation (narrative) [facility] XR Knee - left 4 ViewsOrdere d By: Ccf Provider on 03-12-2021 [facility] TS GELon 02-07-2018 TS GEL ABO Group: O Rh, Gel: POS Antibody Screen Gel: NEG Normal [facility] Comment on above: Performed By: #### T SGL ####[address] [place] [address] Basic Metabolic Panelon 01-25 Anion gap 3 molar conc 8 Normal [facility] Comment on above: Performed By: #### H EMDF, ESR, PT/AP, LACT3, QWNT, CRP2, BMP3 ####[address] [place] [address] Calcium mass conc 8.8 mg/dL Normal 8.4-10.4 [facility] Comment on above: Performed By: #### H EMDF, ESR, PT/AP, LACT3, QWNT, CRP2, BMP3 ####[facility] [place], [place] CO2 molar conc 24 mmol/L Normal 22-30 [facility] Comment on above: Performed By: #### H EMDF, ESR, PT/AP, LACT3, QWNT, CRP2, BMP3 ####[place] [address] [place], [place] Glucose mass conc 89 mg/dL Normal 70-100 [facility] Comment on above: Performed By: #### H EMDF, ESR, PT/AP, LACT3, QWNT, CRP2, BMP3 ####[address] Urea nitrogen mass conc 10 mg/dL Normal 7-20 [facility] Comment on above: Performed By: #### H EMDF, ESR, PT/AP, LACT3, QWNT, CRP2, BMP3 ####[address] Creatinine mass conc 0.67 mg/dL Normal 0.52-1.25 [facility] Comment on above: Performed By: #### H EMDF, ESR, PT/AP, LACT3, QWNT, CRP2, BMP3 ####[address] GFR/1.73 sq M predicted among blacks MDRD vol rate/area (S/P/Bld) mL/min/{1.73_m2} Normal >60 [facility] Comment on above: Performed By: #### H EMDF, ESR, PT/AP, LACT3, QWNT, CRP2, BMP3 ####[address] [place], [place] GFR/1.73 sq M predicted among non-blacks MDRD vol rate/area (S/P/Bld) mL/min/{1.73_m2} Normal >60 [facility] Comment on above: Result Comment: Sour ce- MDRD equation with creatinine calibration to IDMS(NKDEP) eGFR not recommended for drug dose adjustment Performed By: #### H EMDF, ESR, PT/AP, LACT3, QWNT, CRP2, BMP3 ####[address] [place], [place] Chloride molar conc 108 mmol/L High 98-107 [facility] Comment on above: Performed By: #### H EMDF, ESR, PT/AP, LACT3, QWNT, CRP2, BMP3 ####[address] Potassium molar conc 3.7 mmol/L Normal 3.5-5.1 [facility] Comment on above: Performed By: #### H EMDF, ESR, PT/AP, LACT3, QWNT, CRP2, BMP3 ####[address] [place], [place] Sodium molar conc 140 mmol/L Normal 137-145 [facility] Comment on above: Performed By: #### H EMDF, ESR, PT/AP, LACT3, QWNT, CRP2, BMP3 ####[address] C-Reactive Proteinon 018 CRP mass conc 9.4 mg/L High 0.0-6.0 [facility] Comment on above: Result Comment: . Performed By: #### H EMDF, ESR, PT/AP, LACT3, QWNT, CRP2, BMP3 ####[address] Hemogram w/ Autodiffon 02-06 Abs Baso Cnt 0.0 10*3/uL Normal 0.0-0.2 [facility] Comment on above: Performed By: #### H EMDF, ESR, PT/AP, LACT3, QWNT, CRP2, BMP3 ####[address] [place], [place] Abs Neutrophile Cnt 4.8 10*3/uL Normal 1.8-7.0 [facility] Comment on above: Performed By: #### H EMDF, ESR, PT/AP, LACT3, QWNT, CRP2, BMP3 ####[address] [address] Basophils/100 WBC Auto (Bld) 0.3 % Normal 0.0-2.0 [facility] Comment on above: Performed By: #### H EMDF, ESR, PT/AP, LACT3, QWNT, CRP2, BMP3 ####[address] Eosinophils Auto #/vol (Bld) 0.1 10*3/uL Normal 0.0-0.5 [facility] Comment on above: Performed By: #### H EMDF, ESR, PT/AP, LACT3, QWNT, CRP2, BMP3 ####[address] Eosinophils/100 WBC Auto (Bld) 1.7 % Normal 1.0-6.0 [facility] Comment on above: Performed By: #### H EMDF, ESR, PT/AP, LACT3, QWNT, CRP2, BMP3 ####[address] Erythrocyte distribution width Auto Ratio (RBC) 14.5 % Normal 11.5-14.5 [facility] Comment on above: Performed By: #### H EMDF, ESR, PT/AP, LACT3, QWNT, CRP2, BMP3 ####[address] Granulocytes/100 WBC (Bld) 62.0 % Normal 40.0-80.0 [facility] Comment on above: Performed By: #### H EMDF, ESR, PT/AP, LACT3, QWNT, CRP2, BMP3 ####[address] Hematocrit Auto Volume Fraction (Bld) 40.4 % Normal 35.0-47.0 [facility] Comment on above: Performed By: #### H EMDF, ESR, PT/AP, LACT3, QWNT, CRP2, BMP3 ####[address] Hemoglobin mass conc (Bld) 13.7 g/dL Normal 11.7-16.0 [facility] Comment on above: Performed By: #### H EMDF, ESR, PT/AP, LACT3, QWNT, CRP2, BMP3 ####[address] Lymphocytes Auto #/vol (Bld) 2.3 10*3/uL Normal 1.0-4.3 [facility] Comment on above: Performed By: #### H EMDF, ESR, PT/AP, LACT3, QWNT, CRP2, BMP3 ####[address] Lymphocytes/100 WBC Auto (Bld) 29.4 % Normal 20.0-40.0 [facility] Comment on above: Performed By: #### H EMDF, ESR, PT/AP, LACT3, QWNT, CRP2, BMP3 ####[address] MCH Auto Entitic mass (RBC) 31.2 pg Normal 26.0-34.0 [facility] Comment on above: Performed By: #### H EMDF, ESR, PT/AP, LACT3, QWNT, CRP2, BMP3 ####[address] MCHC Auto mass conc (RBC) 33.9 % Normal 32.0-36.0 [facility] Comment on above: Performed By: #### H EMDF, ESR, PT/AP, LACT3, QWNT, CRP2, BMP3 ####[address] MCV Auto Entitic volume (RBC) 92.2 fL Normal 79.0-98.0 [facility] Comment on above: Performed By: #### H EMDF, ESR, PT/AP, LACT3, QWNT, CRP2, BMP3 ####[address] Monocytes Auto #/vol (Bld) 0.5 10*3/uL Normal 0.0-0.8 [facility] Comment on above: Performed By: #### H EMDF, ESR, PT/AP, LACT3, QWNT, CRP2, BMP3 ####[address] [place], [place] Monocytes/100 WBC Auto (Bld) 6.6 % Normal 2.0-10.0 [facility] Comment on above: Performed By: #### H EMDF, ESR, PT/AP, LACT3, QWNT, CRP2, BMP3 ####[address] [place], [place] Platelet mean volume Auto Entitic volume (Bld) 7.8 fL Normal 7.4-10.4 [facility] Comment on above: Performed By: #### H EMDF, ESR, PT/AP, LACT3, QWNT, CRP2, BMP3 ####[address] Platelets Auto #/vol (Bld) 282 10*3/uL Normal 140-440 [facility] Comment on above: Performed By: #### H EMDF, ESR, PT/AP, LACT3, QWNT, CRP2, BMP3 ####[address] [place], [place] RBC Auto #/vol (Bld) 4.38 10*6/uL Normal 3.80-5.20 [facility] Comment on above: Performed By: #### H EMDF, ESR, PT/AP, LACT3, QWNT, CRP2, BMP3 ####[address] [place], [place] WBC Auto #/vol (Bld) 7.8 10*3/uL Normal 3.6-10.7 [facility] Comment on above: Performed By: #### H EMDF, ESR, PT/AP, LACT3, QWNT, CRP2, BMP3 ####[address] [place], [place] Lactic Acidon 02-06-2018 Lactate molar conc 0.6 mmol/L Low 0.7-2.0 [facility] Comment on above: Performed By: #### H EMDF, ESR, PT/AP, LACT3, QWNT, CRP2, BMP3 ####[facility] [address] [place], [place] Protime AND APTTon 8 INR Coag RelTime (PPP) 1.0 Normal 0.9-1.1 [facility] Comment on above: Result Comment: Soy [...] EMDF, ESR, PT/AP, LACT3, QWNT, CRP2, BMP3 ####[facility] [address] [place], [place] Prothrombin time (PT) Coag time (PPP) 10.4 s Normal 9.0-12.0 [facility] Comment on above: Result Comment: . Performed By: #### H EMDF, ESR, PT/AP, LACT3, QWNT, CRP2, BMP3 ####[facility] [employer] [id number] [place], [place] aPTT Coag time (Bld) 24.1 s Normal 20.0-30.5 [facility] Comment on above: Result Comment: NOTE : The therapeutic time for Heparin anticoagulation,based on Xa activity inhibition, is an APTT of 46-80seconds. Performed By: #### H EMDF, ESR, PT/AP, LACT3, QWNT, CRP2, BMP3 ####[facility] [address] [place], [place] Sed Rateon 02-06-2018 Sed Rate 13 mm/h Normal 0-20 [facility] Comment on above: Performed By: #### H EMDF, ESR, PT/AP, LACT3, QWNT, CRP2, BMP3 ####[facility] [employer] [id number] [place] [address] hCG Quantitativeon 8 hCG Quantitative < 2 Normal < 3 [facility] Comment on above: Performed By: #### H EMDF, ESR, PT/AP, LACT3, QWNT, CRP2, BMP3 ####[facility] [id number] [place] [address] History And Physical-Dictate don 01-03-2018 Discharge Summary [facility], [place] [address]UJSJDALY BRADY [facility] [id number] 1985ADMIT 12/08/2017DISCH 12/13/2017DISCHARGE SUMMARYREASON FOR ADMISSIONDaly Evans is a 32 years young, single female who was admitted asan emergency from [facility] on 12/08/2017 with history of increasingdepression and suicidal ideations. She reported multiple psychosocial issuesincluding recent break-up with a boyfriend, loss of adequate housing andunemployment since May,. She is also a single mother of a 5-year-old son. She was contemplating to take an overdose when she call [facility]'s crisis hotline, and following evaluation at [facility] emergency room, she was admitted [...] at bedtime, Seroquel 300 mg at bedtime, Keetknbo78 mg at bedtime and trazodone 100 mg [...] [facility] [place] [place].CONDITION AT TIME OF DISCHARGEImproved.LEOBARDO GEORGE, ONEAL 01/03/2018 11:07 [id number] 01/03/2018 11:21 CPP/MODLElectronically Signed By Zakiya George M.D. on 07 Jan 2018 17:56:48 GMT Normal [facility] History And Physical-Dictated [facility], [place] [address]TYIS DALY EVANS [facility] [id number] 1985ADMIT 12/08/2017HISTORY AND PHYSICALIDENTIFICATION DATADaly Evans is a 41-oqpns-tjigh single, female who was admitted asan emergency from [facility] on 12/08/2017.CHIEF COMPLAINTI [facility] and [...] suicide by taking an overdose, she called [facility] crisis hotline, and [facility]. She reported that prior to thisadmission she was taking a number of medications as prescribed by nursepractitioner at [facility]. She was unable to identify all themedication and the strength.FAMILY HISTORYShe denied any knowledge of psychiatric illness in the family. However, shedid report that her only sibling, a brother, has Asperger syndrome andcurrently he lives at home with his parents.PAST PSYCHIATRIC HISTORYShe reported that she has been receiving outpatient treatment at [facility] off and on since the age of 13.She reported that she was admitted to [facility] October 2017for [facility] following an overdose of trazodone, Prozac, and Lamictal.PERSONAL HISTORYShe is a 1-ncjzy[age]luv young single, female, and mother of a [...] to 7 days.ZAKIYA GEORGE, ONEAL 12/09/2017 11:05 [id number] 12/09/2017 11:34 CPP/MODLElectronically Signed By Zakiya George M.D. on 11 Dec 2017 17:30:48 GMT Normal [address], [place] [address]PVTW DALY EVANS [facility] [id number] 1985DATE 12/12/2017PROGRESS NOTEDaly was seen individually and [...] with current treatmentplans.ZAKIYA GEORGE, ONEAL 12/12/2017 11:18 [id number] 12/12/2017 17:11 CPP/MODLElectronically Signed By Zakiya George M.D. on 14 Dec 2017 21:36:28 GMT Normal [facility] Lipid Panelon 12-09-2017 Cholesterol 168 mg/dL Normal 100-199 [facility] Comment on above: Performed By: #### T , LIPID ####Unless otherwise noted, all testing performed by [place] [address], [place] [phone]: [id number] Director: Willis Paulino M.D. Cholesterol in VLDL mass conc 21 mg/dL Normal 5-40 [facility] Comment on above: Performed By: #### T SH, LIPID ####Unless otherwise noted, all testing performed by [place] [phone]: [id number] Director: Willis aPulino M.D. Cholesterol to HDL Ratio 2.7 {ratio} Low 3.2-5.0 [facility] Comment on above: Result Comment: Jqaui palacio Coronary Heart Disease Risk Factor (CHDRF):Average risk= 4.41/2 Average risk= 3.32 times Average risk= 7.1 Performed By: #### T SH, LIPID ####Unless otherwise noted, all testing performed by [place] [id number]: [id number] Director: Willis Paulino M.D. HDL Cholesterol 62 mg/dL High 40-59 [facility] Comment on above: Performed By: #### T SH, LIPID ####Unless otherwise noted, all testing performed by [place] [id number]: [id number] Director: Willis Paulino M.D. LDL Cholesterol 86 mg/dL Normal 10-150 [facility] Comment on above: Performed By: #### T SH, LIPID ####Unless otherwise noted, all testing performed by [place] [id number]: [id number] Director: Willis Paulino M.D. Triglyceride 105 mg/dL Normal 25-120 [facility] Comment on above: Performed By: #### T SH, LIPID ####Unless otherwise noted, all testing performed by [address] [phone]: [id number] Director: Willis Paulino M.D. TSHon 12-09-2017 Thyroid stimulating hormone (TSH) 1.70 uIU/mL Normal 0.320-5.000 [facility] Comment on above: Result Comment: Samp les from patients routinely receiving high dose biotin therapy(100-300 mg/day) may show falsely decreased results. Please correlateclinically. Performed By: #### T SH, LIPID ####Unless otherwise noted, all testing performed by [address] [phone]: [id number] Director: Willis Paulino M.D. Urinalysis, Routineon 2017 Bilirubin,Urine Negative Normal NEG;NEGATIV E [facility] Comment on above: Performed By: #### U A ####Unless otherwise noted, all testing performed by [address] [phone]: [id number] Director: Willis Paulino M.D. Blood,Urine Negative Normal NEG;NEGATIV E [facility] Comment on above: Performed By: #### U A ####Unless otherwise noted, all testing performed by [address] [phone]: [id number] Director: Willis Paulino M.D. Character [facility] Comment on above: Performed By: #### U A ####Unless otherwise noted, all testing performed by [address] [phone]: [id number] Director: Willis Paulino M.D. Ketone,Urine Negative Normal NEG;NEGATIV E [facility] Comment on above: Performed By: #### U A ####Unless otherwise noted, all testing performed by [address] [phone]: [id number] Director: Willis Paulino M.D. Leuk.Esterase,Urine Negative Normal Negative [facility] Comment on above: Performed By: #### U A ####Unless otherwise noted, all testing performed by [address] [phone]: [id number] Director: Willis Paulino M.D. Nitrite,Urine Negative Normal NEG;NEGATIV E [facility] Comment on above: Performed By: #### U A ####Unless otherwise noted, all testing performed by [address] [phone]: [id number] Director: Willis Paulino M.D. Protein,Urine Negative Normal NEG;NEGATIV E [facility] Comment on above: Performed By: #### U A ####Unless otherwise noted, all testing performed by [address] [address] [id number]: [id number] Director: Willis Paulino M.D. Specific [place],Urine 1.006 Normal 1.003-1.029 [facility] Comment on above: Performed By: #### U A ####Unless otherwise noted, all testing performed by [address], [place] [id number]: [id number] Director: Willis Paulino M.D. Squamous Epithelial 2 /HPF Normal 0-40 [facility] Comment on above: Performed By: #### U A ####Unless otherwise noted, all testing performed by [address] [id number]: [id number] Director: Willis Paulino M.D. Urine, color Yellow Normal [facility] Comment on above: Performed By: #### U A ####Unless otherwise noted, all testing performed by [address] [id number]: [id number] Director: Willis Paulino M.D. Urine, glucose presence Negative Normal NEG;NEGATIV E [facility] Comment on above: Performed By: #### U A ####Unless otherwise noted, all testing performed by [address] [id number]: [id number] Director: Willis Paulino M.D. Urine, leukocytes in sedmiment /[HPF] Normal 0-5 [facility] Comment on above: Performed By: #### U A ####Unless otherwise noted, all testing performed by [address] [id number]: [id number] Director: Willis Paulino M.D. Urine, pH 7.0 [pH] Normal 4.5-8.0 [facility] Comment on above: Performed By: #### U A ####Unless otherwise noted, all testing performed by [place] [address] [place], [place] [id number]: [id number] Director: Willis Paulino M.D. Urobilinogen,Urine < 2.0 Normal <2 [facility] Comment on above: Performed By: #### U A ####Unless otherwise noted, all testing performed by [address] [id number]: [id number] Director: Willis Paulino M.D. Vital Signs Date Time Vital Sign Value Performing Clinician Facility 03-01-2025 10:40-0400 Body mass index (BMI) [Ratio] 28.97 kg/m2 Xochilt Gaston [employer].DIRECTOR OF CLOUD SERVICES Work Phone: [facility] 03-01-2025 10:40-0400 Body weight 83.92 kg Xochilt Gaston [employer].DIRECTOR OF CLOUD SERVICES Work Phone: [facility] 03-01-2025 10:40-0400 Diastolic blood pressure 70 mm[Hg] Xochilt Collins n [employer].DIRECTOR OF CLOUD SERVICES Work Phone: [facility] 03-01-2025 10:40-0400 Heart rate 102 /min Xochilt Cohnman [employer].DIRECTOR OF CLOUD SERVICES Work Phone: [facility] 03-01-2025 10:40-0400 Respiratory rate 16 /min Xochilt Marilin [employer].DIRECTOR OF CLOUD SERVICES Work Phone: [facility] 03-01-2025 10:40-0400 SaO2% (BldA) [Mass fraction] 97 % Xochilt Marilin [employer].DIRECTOR OF CLOUD SERVICES Work Phone: [facility] 03-01-2025 10:40-0400 Systolic blood pressure 118 mm[Hg] Xochilt Marilin [employer].DIRECTOR OF CLOUD SERVICES Work Phone: [facility] 01-28-2025 14:18-0400 Body mass index (BMI) [Ratio] 27.06 kg/m2 Ed Odessa [employer].DIRECTOR OF CLOUD SERVICES Work Phone: [facility] 01-28-2025 14:18-0400 Body weight 78.38 kg Ed Odessa [employer].DIRECTOR OF CLOUD SERVICES Work Phone: [facility] 01-28-2025 14:18-0400 Diastolic blood pressure 64 mm[Hg] Ed Odessa [employer].DIRECTOR OF CLOUD SERVICES Work Phone: [facility] 01-28-2025 14:18-0400 Heart rate 112 /min Ed Odessa [employer].DIRECTOR OF CLOUD SERVICES Work Phone: [facility] 01-28-2025 14:18-0400 Respiratory rate 14 /min Ed Odessa [employer].DIRECTOR OF CLOUD SERVICES Work Phone: [facility] 01-28-2025 14:18-0400 SaO2% (BldA) [Mass fraction] 98 % Ed Odessa [employer].DIRECTOR OF CLOUD SERVICES Work Phone: [facility] 01-28-2025 14:18-0400 Systolic blood pressure 112 mm[Hg] Ed Odessa [employer].DIRECTOR OF CLOUD SERVICES Work Phone: [facility] 01-10-2025 13:57-0400 Body mass index (BMI) [Ratio] 29.09 kg/m2 Ed Odessa [employer].DIRECTOR OF CLOUD SERVICES Work Phone: [facility] 01-10-2025 13:57-0400 Body weight 84.28 kg Ed Odessa [employer].DIRECTOR OF CLOUD SERVICES Work Phone: [facility] 01-10-2025 13:57-0400 Diastolic blood pressure 60 mm[Hg] Ed Odessa [employer].DIRECTOR OF CLOUD SERVICES Work Phone: [facility] 01-10-2025 13:57-0400 Heart rate 84 /min Ed Odessa [employer].DIRECTOR OF CLOUD SERVICES Work Phone: [facility] 01-10-2025 13:57-0400 SaO2% (BldA) [Mass fraction] 99 % Ed Odessa [employer].DIRECTOR OF CLOUD SERVICES Work Phone: [facility] 01-10-2025 13:57-0400 Systolic blood pressure 90 mm[Hg] Ed Saxena BENOIT Work Phone: [facility] 01-09-2025 11:00-0400 Body mass index (BMI) [Ratio] 29.59 kg/m2 Research Coordinator [facility] 01-09-2025 11:00-0400 Body weight 85.73 kg Research Coordinator [facility] Comment on above: per patient report using home weight sca 12-31-2024 09:50-0400 Body height 170.2 cm Kirit Devine MD Work Phone: [facility] 12-31-2024 09:50-0400 Body mass index (BMI) [Ratio] 29.62 kg/m2 Kirit Devine MD Work Phone: [facility] 12-31-2024 09:50-0400 Body temperature 97.39 [degF] Kirit Devine MD Work Phone: [facility] 12-31-2024 09:50-0400 Body weight 85.8 kg Kirit Devine MD Work Phone: [facility] 12-31-2024 09:50-0400 Diastolic blood pressure 77 mm[Hg] Kirit Devine MD Work Phone: [facility] 12-31-2024 09:50-0400 Heart rate 111 /min Kirit Devine MD Work Phone: [facility] 12-31-2024 09:50-0400 Respiratory rate 18 /min Kirit Devine MD Work Phone: [facility] 12-31-2024 09:50-0400 SaO2% (BldA) [Mass fraction] 98 % Kirit Devine MD Work Phone: [facility] 12-31-2024 09:50-0400 Systolic blood pressure 106 mm[Hg] Kirit Caldwell Work Phone: [facility] 12-12-2024 19:56-0400 SaO2% (BldA) [Mass fraction] 98 % FREDRICK BOLAND [facility] Comment on above: Order Comment: Specimen Type: ARTERIAL B LOOD SPECIMENOrdering Facility: [facility] Address: [address] [place] [address] Performed By: #### A LLBG ####[facility] LABCLIA [id number] [place] [id number] [place] 12-12-2024 18:09-0400 SaO2% (BldA) [Mass fraction] 99 % FREDRICK BOLAND [facility] Comment on above: Order Comment: Specimen Type: ARTERIAL B LOOD SPECIMENOrdering Facility: [facility] Address: [address] [place] [address] Performed By: #### A LLBG ####[facility] LABIA [id number] [place] [id number] [place] 12-12-2024 14:39-0400 SaO2% (BldA) [Mass fraction] 100 % FREDRICK BOLAND [facility] Comment on above: Order Comment: Specimen Type: ARTERIAL B LOOD SPECIMENOrdering Facility: [facility] Address: [address] [place] [address] Performed By: #### A LLMG ####[facility] LABIA [id number] [place] [id number] [place] 12-12-2024 14:06-0400 SaO2% (BldA) [Mass fraction] 100 % FREDRICK BOLAND [facility] Comment on above: Order Comment: Specimen Type: ARTERIAL B LOOD SPECIMENOrdering Facility: [facility] Address: [address] [place], [place] [id number] Performed By: #### A LLMG ####[facility] LABIA [id number] [place] [id number] [place] 12-12-2024 13:31-0400 SaO2% (BldA) [Mass fraction] 100 % FREDRICK BOLAND [facility] Comment on above: Order Comment: Specimen Type: ARTERIAL B LOOD SPECIMENOrdering Facility: [facility] Address: [address] [place] [address] Performed By: #### A LLMG ####[facility] [id number] [place] [id number] [facility] 12-12-2024 11:41-0400 SaO2% (BldA) [Mass fraction] 100 % FREDRICK BOLAND [facility] Comment on above: Order Comment: Specimen Type: ARTERIAL B LOOD SPECIMENOrdering Facility: [facility] Address: [address] [place] [address] Performed By: #### A LLMG ####[facility] [id number] [place] [id number] [facility] 12-12-2024 10:00-0400 SaO2% (BldA) [Mass fraction] 99 % FREDRICK BOLAND [facility] Comment on above: Order Comment: Specimen Type: ARTERIAL B LOOD SPECIMENOrdering Facility: [facility] Address: [address] [place] [address] Performed By: #### A LLMG ####[facility] [id number] [place] [id number] [facility] 10-02-2024 15:02-0400 Body height 169.5 cm Martín [employer] DO Work Phone: [facility] 10-02-2024 15:02-0400 Body mass index (BMI) [Ratio] 32.21 kg/m2 Martín [employer]I [employer] DO Work Phone: [facility] 10-02-2024 15:02-0400 Body temperature 97.81 [degF] Martín MEI Pharmai DO Work Phone: [facility] 10-02-2024 15:02-0400 Body weight 92.53 kg Martín MEI [employer] DO Work Phone: [facility] 10-02-2024 15:02-0400 Diastolic blood pressure 72 mm[Hg] Martín MEI Pharmai DO Work Phone: [facility] 10-02-2024 15:02-0400 Heart rate 114 /min Martín Ramiresi DO Work Phone: [facility] 10-02-2024 15:02-0400 SaO2% (BldA) [Mass fraction] 99 % Martín Ramiresi DO Work Phone: [facility] 10-02-2024 15:02-0400 Systolic blood pressure 101 mm[Hg] Martín Ramiresi DO Work Phone: [facility] 09-19-2024 12:21-0400 Diastolic blood pressure 92 mm[Hg] Angela Blackwood [employer].DIRECTOR OF CLOUD SERVICES Work Phone: [facility] 09-19-2024 12:21-0400 Heart rate 114 /min Angela Blackwood [employer].DIRECTOR OF CLOUD SERVICES Work Phone: [facility] 09-19-2024 12:21-0400 SaO2% (BldA) [Mass fraction] 96 % Angela Blackwood [employer].DIRECTOR OF CLOUD SERVICES Work Phone: [facility] 09-19-2024 12:21-0400 Systolic blood pressure 132 mm[Hg] Angela Blackwood [employer].DIRECTOR OF CLOUD SERVICES Work Phone: [facility] 08-16-2024 09:09-0500 Body mass index (BMI) [Ratio] 33.21 kg/m2 Xochilt Cohnman [employer].DIRECTOR OF CLOUD SERVICES Work Phone: [facility] 08-16-2024 09:09-0500 Body temperature 97.5 [degF] Xochilt Marilin [employer].DIRECTOR OF CLOUD SERVICES Work Phone: [facility] 08-16-2024 09:09-0500 Body weight 98.25 kg Xochilt Marilin [employer].DIRECTOR OF CLOUD SERVICES Work Phone: [facility] 08-16-2024 09:09-0500 Diastolic blood pressure 64 mm[Hg] Xochilt Stdanettema n [employer].DIRECTOR OF CLOUD SERVICES Work Phone: [facility] 08-16-2024 09:09-0500 Heart rate 104 /min Xochilt Marilin [employer].DIRECTOR OF CLOUD SERVICES Work Phone: [facility] 08-16-2024 09:09-0500 SaO2% (BldA) [Mass fraction] 98 % Xochilt Marilin [employer].DIRECTOR OF CLOUD SERVICES Work Phone: [facility] 08-16-2024 09:09-0500 Systolic blood pressure 106 mm[Hg] Xochilt Marilin [employer].DIRECTOR OF CLOUD SERVICES Work Phone: [facility] 08-07-2024 09:40-0500 Body height 172 cm Xochilt Marilin [employer].DIRECTOR OF CLOUD SERVICES Work Phone: [facility] 08-07-2024 09:40-0500 Body mass index (BMI) [Ratio] 33.12 kg/m2 Xochilt Marilin [employer].DIRECTOR OF CLOUD SERVICES Work Phone: [facility] 08-07-2024 09:40-0500 Body weight 97.98 kg Xochilt Marilin [employer].DIRECTOR OF CLOUD SERVICES Work Phone: [facility] 08-07-2024 09:40-0500 Diastolic blood pressure 72 mm[Hg] Xochilt Stdanettema n [employer].DIRECTOR OF CLOUD SERVICES Work Phone: [facility] 08-07-2024 09:40-0500 Heart rate 106 /min Xochilt Marilin [employer].DIRECTOR OF CLOUD SERVICES Work Phone: [facility] 08-07-2024 09:40-0500 SaO2% (BldA) [Mass fraction] 96 % Xochilt Marilin [employer].DIRECTOR OF CLOUD SERVICES Work Phone: [facility] 08-07-2024 09:40-0500 Systolic blood pressure 108 mm[Hg] Xochilt Marilin [employer].DIRECTOR OF CLOUD SERVICES Work Phone: [facility] 03-29-2022 12:23-0400 Body temperature 97.5 [degF] Fredrick Boland DO Work Phone: [facility] 03-29-2022 12:23-0400 Body weight 100.7 kg Fredrick Boland DO Work Phone: [facility] 03-29-2022 12:23-0400 Diastolic blood pressure 60 mm[Hg] Fredrick Boland DO Work Phone: [facility] 03-29-2022 12:23-0400 Heart rate 76 /min Fredrick Boland DO Work Phone: [facility] 03-29-2022 12:23-0400 Respiratory rate 16 /min Fredrick Boland DO Work Phone: [facility] 03-29-2022 12:23-0400 Systolic blood pressure 120 mm[Hg] Fredrick Boland DO Work Phone: [facility] 02-02-2022 09:00-0400 Body temperature 97.5 [degF] Fredrick Boland DO Work Phone: [facility] 02-02-2022 09:00-0400 Body weight 100.25 kg Fredrick Boland DO Work Phone: [facility] 02-02-2022 09:00-0400 Diastolic blood pressure 70 mm[Hg] Fredrick Boland DO Work Phone: [facility] 02-02-2022 09:00-0400 Heart rate 80 /min Fredrick Boland DO Work Phone: [facility] 02-02-2022 09:00-0400 Respiratory rate 16 /min Fredrick Boland DO Work Phone: [facility] 02-02-2022 09:00-0400 Systolic blood pressure 100 mm[Hg] Fredrick Boland DO Work Phone: [facility] 10-23-2021 08:43-0400 Body weight 97.52 kg Xochilt Marilin [employer].DIRECTOR OF CLOUD SERVICES Work Phone: [facility] 10-23-2021 08:43-0400 Diastolic blood pressure 82 mm[Hg] Xochilt Stozzie n [employer].DIRECTOR OF CLOUD SERVICES Work Phone: [facility] 10-23-2021 08:43-0400 Heart rate 79 /min Xochilt Marilin [employer].DIRECTOR OF CLOUD SERVICES Work Phone: [facility] 10-23-2021 08:43-0400 Respiratory rate 16 /min Xochilt Marilin [employer].DIRECTOR OF CLOUD SERVICES Work Phone: [facility] 10-23-2021 08:43-0400 SaO2% (BldA) [Mass fraction] 99 % Xochilt Marilin [employer].DIRECTOR OF CLOUD SERVICES Work Phone: [facility] 10-23-2021 08:43-0400 Systolic blood pressure 122 mm[Hg] Xochilt Marilin [employer].DIRECTOR OF CLOUD SERVICES Work Phone: [facility] Encounters Encounter Date Encounter Type Care Provider Facility Start: 05-02-2025 End: 05-02-2025 ambulatory KARTHIK PREBISH Facility:[facility] Start: 04-30-2025 End: 04-30-2025 ambulatory FREDRICK L BOLAND Facility:[facility] Start: 04-22-2025 ambulatory FREDRICK BOLAND DO Faci lity:A Start: 04-10-2025 End: 04-10-2025 [facility] Start: 04-06-2025 ambulatory Yoseph Fonseca Facili ty:[facility] Start: 04-01-2025 End: 04-01-2025 ambulatory [facility] Facility:[facility] Start: 03-26-2025 ambulatory Fredrick Boland Facilit y:[facility] Start: 03-14-2025 End: 03-26-2025 ambulatory Yoseph Raymundo Facility:[facility] Start: 03-07-2025 End: 03-07-2025 ambulatory [facility] Facility:[facility] Start: 03-06-2025 End: 03-08-2025 ambulatory Xochilt Marilin [employer].DIRECTOR OF CLOUD SERVICES Work Phone: [facility] Comment on above: Gabapentin Refill Request Start: 03-05-2025 End: 03-05-2025 E-mail encounter from caregiver Clayton Granados APRN.CNP Work Phone: Psychiatry Start: 03-05-2025 End: 03-05-2025 Patient encounter procedure Clayton Granados APRN.DIRECTOR OF CLOUD SERVICES Work Phone: Psychiatry Comment on above: Appointment Start: 03-01-2025 End: 03-11-2025 Telephone encounter Intestinal Trans Coord Main Work Phone: [facility] Comment on above: Anticoagulation - In itial Consult Start: 03-01-2025 End: 03-01-2025 Office outpatient visit 25 minutes Xochilt Gaston [employer].DIRECTOR OF CLOUD SERVICES Work Phone: [facility] Comment on above: Short bowel syndrome , 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); Hypokalemia; Malnutrition of moderate degree (HCC); Anticoagulation management encounter; 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) Start: 03-01-2025 End: 03-01-2025 [facility] Start: 02-28-2025 End: 03-01-2025 ambulatory Kirit Devine MD Work Phone: [facility] Comment on above: Attn Libia Start: 02-26-2025 End: 02-26-2025 [facility] Clayton Granados APRN.DIRECTOR OF CLOUD SERVICES Work Phone: Psychiatry Comment on above: Anxiety [...] Evaluation and management of inpatient Donte Espinal Facility:[facility] Start: 02-14-2025 End: 02-24-2025 ambulatory Yoseph Fonseca Facility:[facility] Start: 02-11-2025 End: 02-11-2025 ambulatory Fredrick Boland DO Work Phone: [facility] Start: 02-11-2025 End: 02-11-2025 Patient encounter procedure Fredrick Boland DO Work Phone: [facility] Comment on above: Referral Start: 02-11-2025 End: 02-12-2025 Telephone encounter Fredrick Boland DO Work Phone: [facility] [place] Comment on above: Consult Start: [...] Start: 02-05-2025 End: 02-05-2025 ambulatory Fredrick Boland Facility:[facility] Start: 02-05-2025 End: 02-05-2025 ambulatory Ed Saxena Facility:[facility] Start: 01-28-2025 End: 01-28-2025 Office outpatient visit 25 minutes Ed Saxena APRN.CNP Work Phone: [facility] Comment on above: 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); Anticoagulation management encounter; Short bowel syndrome, 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; Malnutrition of moderate degree (HCC); Hypokalemia; Anemia, unspecified type; PICC (peripherally inserted central catheter) in place Start: 01-28-2025 End: 01-28-2025 ambulatory FREDRICK BOLAND Facility:[facility] Start: 01-28-2025 End: 01-28-2025 Telephone encounter Jigna HowellRn) [facility] Comment on above: Research (JOSEPH JONATAN / [id number]) Start: 01-24-2025 End: 01-24-2025 Telephone encounter Hpn Fraternity Adviser Work Phone: Gastroenterology Start: 01-24-2025 End: 01-24-2025 ambulatory Yoseph Raymundo Facility:[facility] Start: 01-23-2025 End: 01-23-2025 Telephone encounter Hpn [employer]aternity Adviser Work Phone: Gastroenterology Start: 01-22-2025 End: 01-22-2025 ambulatory Hpn [employer]aternity Adviser Work Phone: Gastroenterology Start: 01-21-2025 End: 01-21-2025 ambulatory FREDRICK BOLAND Facility:[facility] Start: 01-17-2025 End: 01-17-2025 Telephone encounter Hpn [employer]aternity Adviser Work Phone: Gastroenterology Start: 01-15-2025 End: 01-24-2025 Follow-up encounter Ed Saxena APRN.DIRECTOR OF CLOUD SERVICES Work Phone: [facility] Comment on above: Results Start: 01-14-2025 End: 01-14-2025 Telephone encounter Ed Saxena APRN.DIRECTOR OF CLOUD SERVICES Work Phone: [facility] Start: 01-11-2025 End: 01-11-2025 ambulatory CLAYTON GRANADOS Facility:[facility] Start: 01-11-2025 End: 01-11-2025 [facility] Clayton Granados APRN.DIRECTOR OF CLOUD SERVICES Work Phone: Psychiatry Comment on above: ELIJAH (generalized anx iety disorder) (Primary Dx); Anxiety about health; Bipolar II disorder (HCC); Encounter for long-term (current) use of medications; Insomnia due to other mental disorder Start: 01-10-2025 End: 01-10-2025 ambulatory FREDRICK BOLAND Facility:[facility] Start: 01-10-2025 End: 01-10-2025 Office outpatient visit 40 minutes Ed Saxena APRN.DIRECTOR OF CLOUD SERVICES Work Phone: [facility] Comment on above: 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); Pain associated with surgical procedure; Removal of gilberto; Visit for suture removal; Screening for depression; Hypokalemia; Blood thinned due to long-term anticoagulant use Start: 01-10-2025 End: 01-10-2025 ambulatory FREDRICK L BOLAND Facility:[facility] Start: 01-09-2025 End: 01-09-2025 Telephone encounter Research Coordinator Clinical Research Comment on above: Research (IRB: [id number] Caring for OutPatiEnts after Acute Kidney Injury (COPE-JONATAN) trial PI: Dr. Juan Manuel Byrd) Start: 01-08-2025 End: 01-10-2025 Telephone encounter Hpn Fraternity Adviser Work Phone: Gastroenterology Comment on above: Critical Lab Start: 01-08-2025 End: 01-08-2025 ambulatory Fredrick Britorison Facility:[facility] Start: 01-07-2025 End: 01-07-2025 Telephone encounter Larry Betancourt MD [facility] Department Comment on above: Fabric Transition of Care Start: 01-04-2025 End: 01-04-2025 Telephone encounter Dayan LUA Hematology/Oncology Start: 01-03-2025 End: 01-03-2025 Telephone encounter Dayan LUA Hematology/Oncology Start: 01-02-2025 End: 01-02-2025 Telephone encounter Jigna Rivera) [facility] Comment on above: Transition Of Care Start: 01-01-2025 End: 01-01-2025 Telephone encounter Fredrick Pinedaon Work Phone: NOC Comment on above: Transition Of Care Start: 01-01-2025 ambulatory Fredrick Boland Facilit y:[facility] Start: 12-31-2024 End: 12-31-2024 Patient encounter procedure Kirit Devine MD Work Phone: [facility] Comment on above: S/P exploratory lapa rotomy Start: 12-31-2024 End: 12-31-2024 ambulatory FREDRICK L BOLAND Facility:[facility] Start: 12-25-2024 End: 12-27-2024 ambulatory Jigna Rivera) [facility] Comment on above: Research (JOSEPH CHEUNG / [id number]) Research (JOSEPH-JONATAN Maday manuel/IRB: [phone]- Pharmacist Contact ) Start: 12-25-2024 End: 12-25-2024 Telephone encounter Intestinal Trans Coord Main Work Phone: [facility] Comment on above: Hospital F/U Transition Of Care ( RC f/u discharge LVM /) Start: 12-24-2024 End: 12-24-2024 ambulatory Fredrick Boland Facility:[facility] Start: 12-21-2024 End: 12-30-2024 Orders Only [...] questions, please feel call Yuri Salcedo at [phone]/) Start: 12-13-2024 End: 12-13-2024 Telephone encounter Intestinal Trans Coord Main Work Phone: [facility] Comment on above: Return Call Request Start: 11-28-2024 End: 11-28-2024 Telephone encounter Intestinal Trans Coord Main Work Phone: [facility] Comment on above: Return Call Request Start: 11-28-2024 End: 12-21-2024 Evaluation and management of inpatient SANDRA RILEY Facility:[facility] Start: 11-27-2024 End: 11-27-2024 Telephone encounter Kirit Devine MD Work Phone: [facility] Start: 11-21-2024 End: 11-23-2024 Evaluation and management of inpatient Taras Sue Facility:[facility] Start: 11-21-2024 ambulatory Taras Sue Fac ility:[facility] Start: 11-14-2024 ambulatory Joshua Nazario Facility:[facility] Start: 11-13-2024 End: 11-16-2024 ambulatory Fredrick Boland Facility:[facility] Start: 11-13-2024 End: 11-16-2024 Evaluation and management of inpatient Ashley Rosen Facility:[facility] Start: 11-12-2024 End: 11-12-2024 Telephone encounter [facility] Start: 11-06-2024 End: 11-06-2024 Telephone encounter Fredrick Boland DO Work Phone: [address] [place] [address] Comment on above: Transition Of Care ( Left V/m ) Start: 11-05-2024 End: 11-05-2024 Telephone encounter [facility] Start: 10-30-2024 End: 10-30-2024 Telephone encounter Larry Betancourt MD [facility] Department Comment on above: Fabric Transition of Care Start: 10-28-2024 ambulatory Taras F Linette Fac ility:[facility] Start: 10-28-2024 End: 11-05-2024 Evaluation and management of inpatient Taras F Linette Facility:[facility] Start: 10-26-2024 End: 10-26-2024 Patient encounter procedure Stephie Montoya MD Work Phone: Gastroenterology Comment on above: On total parenteral nutrition (TPN) (Primary Dx) Start: 10-19-2024 End: 10-26-2024 Evaluation and management of inpatient MICHAEL ELLIS Facility:[id number] Start: 10-19-2024 ambulatory MAGGIE PUTNAM [facility] Start: 10-19-2024 End: 10-19-2024 Emergency department patient visit HERBERT GANDHI [facility] Start: 10-09-2024 End: 10-12-2024 ambulatory ROSA MARIA BULLOCK Facility:[id number] Start: 10-09-2024 End: 10-10-2024 Telephone encounter Martín Pendleton DO Work Phone: Hematology/Oncology Comment on above: Results; Follow Up Start: 10-09-2024 End: 10-09-2024 [facility] Start: 10-08-2024 End: 10-12-2024 Telephone encounter Nico Bashir 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 Start: 09-19-2024 End: 09-19-2024 ambulatory FREDRICK BOLAND Facility:[facility] Start: 09-17-2024 End: 09-17-2024 Emergency department patient visit MAGGIE VO [facility] Start: 09-12-2024 End: 09-14-2024 Telephone encounter Martín Pendleton DO Work Phone: Hematology/Oncology Comment on above: New Patient Gut Rehab/ Intestine Txp Referral Start: 09-11-2024 End: 09-14-2024 Orders Only Aelja Goncalves MD Work Phone: Vascular Surg Dept [...] Start: 09-03-2024 End: 10-26-2024 ambulatory MAGGIE VO [facility] Start: 08-28-2024 End: 08-28-2024 Telephone encounter Akua Grigsby MD Work Phone: Vascular Medicine Start: 08-20-2024 End: 08-20-2024 ambulatory Katelyn Villagran [employer] VAN VENDOR.DIRECTOR OF CLOUD SERVICES Work Phone: Critical Care Start: 08-20-2024 End: 09-03-2024 Evaluation and management of inpatient FREDRICK BOLAND Facility:[facility] Start: 08-20-2024 End: 08-20-2024 Emergency department patient visit Fredrick Boland Facility:[facility] Start: 08-16-2024 End: 08-16-2024 Emergency department patient visit Fredrick Britorison Facility:[facility] Start: 08-16-2024 End: 08-16-2024 ambulatory XOCHILT GASTON Facility:[facility] Start: 08-16-2024 End: 08-16-2024 Office outpatient visit 25 minutes Xochilt Gaston [employer] V[employer] V[employer]OR.DIRECTOR OF CLOUD SERVICES Work Phone: Family [facility] [place] Comment on above: Productive cough (Pr imary Dx); Eczema, unspecified type Start: 08-08-2024 End: 08-29-2024 Follow-up encounter Xochilt Gaston APRN.DIRECTOR OF CLOUD SERVICES Work Phone: Family Medicine [place] Comment on above: Anemia, unspecified type (Primary Dx) Start: 08-07-2024 End: 08-07-2024 Telephone encounter Xochilt Gaston APRN.DIRECTOR OF CLOUD SERVICES Work Phone: [facility] [place] Comment on above: Results; EKG Start: 08-07-2024 End: 08-07-2024 ambulatory XOCHILTCARLOS GASTON Facility:[facility] Start: 08-07-2024 End: 08-07-2024 Office outpatient visit 25 minutes Xochilt Gaston APRN.DIRECTOR OF CLOUD SERVICES Work Phone: [facility] Comment on above: Medication managemen t (Primary Dx); Hypokalemia; Low hemoglobin; Anemia, unspecified type; Elevated hemoglobin A1c Start: 07-30-2024 End: 07-30-2024 Emergency department patient visit [facility] Facility:[facility] Start: 06-19-2024 End: 06-21-2024 ambulatory Clayton Granados APRN.DIRECTOR OF CLOUD SERVICES Work Phone: Psychiatry Comment on above: EKG Start: 05-21-2024 End: 05-21-2024 ambulatory [facility] Facility:[facility] Start: 05-18-2024 End: 05-18-2024 ambulatory [facility] Facility:[facility] Start: 05-18-2024 End: 05-18-2024 [facility] Clayton Granados APRN.DIRECTOR OF CLOUD SERVICES Work Phone: Psychiatry Comment on above: ELIJAH (generalized anx iety disorder) (Primary Dx); Panic attacks; Insomnia due to other mental disorder; Bipolar II disorder (HCC); Encounter for long-term (current) use of medications; History of marijuana use; Psychosocial stressors Start: 04-24-2024 End: 04-26-2024 ambulatory Clayton Granados APRN.DIRECTOR OF CLOUD SERVICES Work Phone: Psychiatry Comment on above: UA Start: 03-27-2024 End: 03-28-2024 ambulatory Clayton Granados APRN.DIRECTOR OF CLOUD SERVICES Work Phone: Psychiatry Comment on above: Lexapro and zyprexa Start: 03-21-2024 End: 03-21-2024 ambulatory Clayton Granados APRN.DIRECTOR OF CLOUD SERVICES Work Phone: Psychiatry Start: 03-21-2024 End: 03-21-2024 Patient encounter procedure Clayton Lila Granados [employer] V[employer] V[employer]OR.DIRECTOR OF CLOUD SERVICES Work Phone: Psychiatry Comment on above: Appointment Start: 03-03-2024 End: 03-03-2024 ambulatory Clayton Granados [employer] V[employer] VENDOR.DIRECTOR OF CLOUD SERVICES Work Phone: Psychiatry Comment on above: NO SHOW (Primary Dx) Start: 03-03-2024 End: 03-03-2024 Telemedicine consultation with patient Clayton Granados [employer] V[employer] VENDOR.DIRECTOR OF CLOUD SERVICES Work Phone: Psychiatry Start: 02-21-2024 End: 02-21-2024 ambulatory Clayton Lila Granados [employer] V[employer] V[employer]OR.DIRECTOR OF CLOUD SERVICES Work Phone: Psychiatry Comment on above: Lexapro Start: 01-26-2024 ambulatory Clayton Lila Martins u [employer] V[employer] VENDOR.DIRECTOR OF CLOUD SERVICES Work Phone: Psychiatry Comment on above: Appt Start: 01-19-2024 End: 01-19-2024 ambulatory Clayton Lila Granados [employer] V[employer] VENDOR.DIRECTOR OF CLOUD SERVICES Work Phone: Psychiatry Comment on above: NO SHOW (Primary Dx) Start: 01-19-2024 End: 01-19-2024 Telemedicine consultation with patient Clayton Granados [employer] V[employer] V[employer]OR.DIRECTOR OF CLOUD SERVICES Work Phone: Psychiatry Start: 12-30-2023 ambulatory Clayton Lila Martins u [employer] V[employer] V[employer]OR.DIRECTOR OF CLOUD SERVICES Work Phone: Psychiatry Start: 12-30-2023 End: 12-30-2023 Patient encounter procedure Clayton Granados [employer] VAN VENDOR.DIRECTOR OF CLOUD SERVICES Work Phone: Psychiatry Comment on above: Appointment APPOINTMENT CANCELLE D (Primary Dx) Start: 12-30-2023 End: 12-30-2023 Telemedicine consultation with patient Clayton Granados [employer] V[employer] VENDOR.DIRECTOR OF CLOUD SERVICES Work Phone: Psychiatry Start: 12-12-2023 Refill Fredrick goodwin DO Work Phone: Family [facility] Comment on above: Refill Request Start: 12-10-2023 Get Medical Advice Fredrick Boland DO Work Phone: [facility] [place] Comment on above: Refill Start: 11-12-2023 ambulatory Clayton Lila roman [employer] V[employer] VENDOR.DIRECTOR OF CLOUD SERVICES Work Phone: Psychiatry Comment on above: Zyprexa Start: 10-19-2023 ambulatory Fredrick goodwin DO Work Phone: Internal Medicine [facility] [place] Start: 09-27-2023 Refill Yesenia Juan Carlos [employer] V[employer] VENDOR.DIRECTOR OF CLOUD SERVICES Work Phone: [facility] [place] Comment on above: Refill Request Start: 09-02-2023 End: 09-02-2023 [facility] Clayton Granados [employer] VAN VENDOR.DIRECTOR OF CLOUD SERVICES Work Phone: Psychiatry Comment on above: Bipolar II disorder (HCC) (Primary Dx); Encounter for long-term (current) use of medications; Panic disorder without agoraphobia; History of marijuana use; ELIJAH (generalized anxiety disorder) Start: 05-23-2023 ambulatory Clayton roman [employer] VAN VENDOR.DIRECTOR OF CLOUD SERVICES Work Phone: Psychiatry Comment on above: Zyprexa Start: 05-16-2023 End: 05-16-2023 [facility] Clayton Granados ICE CREAM VAN VENDOR.DIRECTOR OF CLOUD SERVICES Work Phone: Psychiatry Comment on above: Encounter for long-t erm (current) use of medications (Primary Dx); ELIJAH (generalized anxiety disorder); Bipolar II disorder (HCC); Panic disorder without agoraphobia Start: 04-18-2023 End: 04-18-2023 [facility] Clayton Granados ICE CREAM VAN VENDOR.DIRECTOR OF CLOUD SERVICES Work Phone: Psychiatry Comment on above: ELIJAH (generalized anx iety disorder) (Primary Dx); Panic attacks; Bipolar II disorder (HCC); Occasional use of marijuana Start: 03-15-2023 Refill Yesenia Rangel [employer] V[employer] VENDOR.DIRECTOR OF CLOUD SERVICES Work Phone: [facility] [place] Comment on above: Refill Request Start: 03-14-2023 End: 03-14-2023 [facility] Clayton Granados [employer] CRE[employer] VAN VENDOR.DIRECTOR OF CLOUD SERVICES Work Phone: Psychiatry Comment on above: Encounter for long-t erm (current) use of medications (Primary Dx); ELIJAH (generalized anxiety disorder); Panic attacks; Bipolar affective disorder, current episode mixed, current episode severity unspecified (HCC) Start: 02-25-2023 ambulatory Clayton roman [employer] V[employer] VENDOR.DIRECTOR OF CLOUD SERVICES Work Phone: [facility] [place] Start: 02-25-2023 Patient encounter procedure Clayton Granados [employer] CRE[employer] VAN VENDOR.DIRECTOR OF CLOUD SERVICES Work Phone: Psychiatry Comment on above: Appointment Start: 01-05-2023 Refill Clayton roman [employer] V[employer]OR.DIRECTOR OF CLOUD SERVICES Work Phone: Psychiatry Comment on above: Refill Request Start: 01-03-2023 Refill Clayton roman [employer] V[employer]OR.DIRECTOR OF CLOUD SERVICES Work Phone: Psychiatry Comment on above: Refill Request Start: 12-31-2022 Refill Clayton roman [employer] V[employer] VENDOR.DIRECTOR OF CLOUD SERVICES Work Phone: Psychiatry Comment on above: Refill Request Start: 10-28-2022 End: 10-28-2022 [facility] Clayton Granados [employer] VAN VENDOR.DIRECTOR OF CLOUD SERVICES Work Phone: Psychiatry Comment on above: History of marijuana use (Primary Dx); Bipolar II disorder (HCC); Panic disorder without agoraphobia Start: 10-01-2022 Telephone encounter [facility] Surgery Comment on above: Workforce Management Consultant - O ther (ECT) Start: 09-30-2022 End: 09-30-2022 ambulatory [facility] Facility:[facility] Start: 09-30-2022 End: 09-30-2022 Patient encounter procedure Esa [facility] ICE CRE[employer] VAN VENDOR.DIRECTOR OF CLOUD SERVICES Work Phone: Psychiatry Comment on above: Bipolar II disorder (HCC) (Primary Dx) Start: 09-27-2022 End: 09-27-2022 [facility] Clayton Granados ICE CREAM VAN VENDOR.DIRECTOR OF CLOUD SERVICES Work Phone: Psychiatry Comment on above: Bipolar 2 disorder ( HCC) (Primary Dx); Panic disorder without agoraphobia; Marijuana use Start: 09-13-2022 End: 03-20-2023 ambulatory Clayton Granados [employer] VAN VENDOR.DIRECTOR OF CLOUD SERVICES Work Phone: Psychiatry Comment on above: NO SHOW (Primary Dx) Start: 09-13-2022 End: 09-13-2022 Telemedicine consultation with patient Clayton Omerguru FINNEGAN.DIRECTOR OF CLOUD SERVICES Work Phone: [facility] [place] Start: 08-24-2022 Telephone encounter Ariella Cortes RN Psychiatry Comment on above: ECT Referral Start: 08-08-2022 Refill Fredrick goodwin DO Work Phone: [facility] [place] Comment on above: Refill Request Start: 07-19-2022 End: 07-19-2022 [facility] Clayton Granados [employer] CRE[employer] VAN VENDOR.DIRECTOR OF CLOUD SERVICES Work Phone: Psychiatry Comment on above: Panic disorder witho ut agoraphobia (Primary Dx); Bipolar 2 disorder (HCC); Marijuana use Start: 07-05-2022 Refill Clayton Nationr u [employer] VAN VENDOR.DIRECTOR OF CLOUD SERVICES Work Phone: Psychiatry Comment on above: Refill Request Start: 07-01-2022 Refill Fredrick goodwin DO Work Phone: [facility] [place] Comment on above: Refill Request Start: 05-31-2022 End: 05-31-2022 [facility] Clayton Granados ICE CREAM VAN VENDOR.DIRECTOR OF CLOUD SERVICES Work Phone: Psychiatry Comment on above: Encounter for long-t erm (current) use of medications (Primary Dx); Panic disorder without agoraphobia; Bipolar 2 disorder (HCC) Start: 05-24-2022 Refill Clayton Martins u [employer] CRE[employer] VAN VENDOR.DIRECTOR OF CLOUD SERVICES Work Phone: Psychiatry Comment on above: Refill Request Start: 05-10-2022 Refill Clayton Nationr u [employer] CRE[employer] VAN VENDOR.DIRECTOR OF CLOUD SERVICES Work Phone: Psychiatry Comment on above: Refill Request Lexapro Start: 04-09-2022 End: 04-09-2022 ambulatory Clayton Granados [employer] VAN VENDOR.DIRECTOR OF CLOUD SERVICES Work Phone: Psychiatry Comment on above: NO SHOW (Primary Dx) Start: 04-09-2022 End: 04-09-2022 Telemedicine consultation with patient Clayton Lila Granados APRN.DIRECTOR OF CLOUD SERVICES Work Phone: [facility] [place] Start: 03-29-2022 End: 03-29-2022 Patient encounter procedure Fredrick Boland DO Work Phone: [facility] Comment on above: Bilateral hand pain (Primary Dx); Elevated C-reactive protein (CRP); Bipolar affective disorder, current episode mixed, current episode severity unspecified (HCC) Start: 03-10-2022 Telephone encounter Fredrick Yosef walsh DO Work Phone: [facility] Comment on above: Patient Update Start: 03-04-2022 End: 03-04-2022 [facility] Clayton Granados APRN.[facility] Work Phone: Psychiatry Comment on above: Panic disorder witho ut agoraphobia (Primary Dx); Bipolar 2 disorder (HCC) Start: 02-11-2022 Refill Clayton roman APRN.DIRECTOR OF CLOUD SERVICES Work Phone: Psychiatry Comment on above: Refill Request Start: 02-02-2022 End: 02-02-2022 Patient encounter procedure Fredrick Boland DO Work Phone: [facility] Comment on above: Bilateral hand pain (Primary Dx); Foot pain, bilateral; Fatigue, unspecified type; Myalgia; Multiple joint pain; Iron deficiency Start: 01-27-2022 End: 01-27-2022 [facility] Clayton Granados APRN.DIRECTOR OF CLOUD SERVICES Work Phone: Psychiatry Comment on above: Bipolar 2 disorder ( HCC) (Primary Dx); Panic disorder without agoraphobia Start: 01-11-2022 ambulatory Clayton Nationr u [employer] VAN VENDOR.DIRECTOR OF CLOUD SERVICES Work Phone: Psychiatry Comment on above: Lab work Start: 12-24-2021 End: 12-24-2021 [facility] Clayton Granados APRN.DIRECTOR OF CLOUD SERVICES Work Phone: Psychiatry Comment on above: ELIJAH (generalized anx iety disorder) (Primary Dx); Bipolar 2 disorder (HCC); Panic disorder without agoraphobia Start: 12-22-2021 Refill Yesenia Zurawic k [employer] CRE[employer] VAN VENDOR.DIRECTOR OF CLOUD SERVICES Work Phone: [facility] [place] Comment on above: Refill Request Start: 12-15-2021 ambulatory Claytonsammie Martins u [employer] CRE[employer] VAN VENDOR.DIRECTOR OF CLOUD SERVICES Work Phone: Psychiatry Comment on above: Lexapro Start: 12-08-2021 Telephone encounter Clayton bro [employer] V[employer] VENDOR.DIRECTOR OF CLOUD SERVICES Work Phone: Psychiatry Comment on above: Patient Question Start: 11-26-2021 Refill Clayton roman [employer] V[employer] VENDOR.DIRECTOR OF CLOUD SERVICES Work Phone: Psychiatry Comment on above: Refill Request Start: 11-12-2021 End: 11-12-2021 [facility] Clayton Granados ICE CREAM VAN VENDOR.DIRECTOR OF CLOUD SERVICES Work Phone: Psychiatry Comment on above: ELIJAH (generalized anx iety disorder) (Primary Dx); Bipolar 2 disorder (HCC) Start: 11-03-2021 Refill Yesenia Zurpromisec k [employer] CREAM VAN VENDOR.DIRECTOR OF CLOUD SERVICES Work Phone: [facility] [place] Comment on above: Refill Request Start: 10-27-2021 End: 10-27-2021 [facility] Clayton Granados ICE CREAM VAN VENDOR.DIRECTOR OF CLOUD SERVICES Work Phone: Psychiatry Comment on above: ELIJAH (generalized anx iety disorder) (Primary Dx); Bipolar 2 disorder (HCC) Start: 10-23-2021 ambulatory Xochilt holland [employer] VAN VENDOR.DIRECTOR OF CLOUD SERVICES Work Phone: [facility] [place] Start: 10-23-2021 End: 10-23-2021 Patient encounter procedure Xochilt Gaston [employer] CRE[employer] VAN VENDOR.DIRECTOR OF CLOUD SERVICES Work Phone: [facility] [place] Comment on above: Appointment Bipolar affective di sorder, current episode mixed, current episode severity unspecified (HCC) (Primary Dx); Alcohol abuse; Depressive disorder; Panic attacks; ADD (attention deficit disorder) without hyperactivity; Legal intervention, bystander injured, initial encounter Start: 10-10-2021 ambulatory Room Emergency Radiolog y Comment on above: Radiology CT Start: 10-10-2021 Patient encounter procedure Room Emergency [facility] Start: 03-12-2021 End: 03-12-2021 Subsequent hospital visit by physician Xr [facility] Work Phone: Radiology Comment on above: Acute pain of left k nee [M25.562] Start: 02-07-2018 Patient encounter procedure SANDRA NINO [facility] Start: 12-08-2017 End: 12-13-2017 Evaluation and management of inpatient Zakiya George Facility:[facility] Date Procedure Procedure Detail Performing Clinician Start: 01-10-2025 Adult depression scr eening assessment Hpn Fraternity Adviser Work Phone: Start: 12-18-2024 Antibody screen FREDRICK BOLAND Comment on above: Order Comment: Speci men Type: BLOOD SPECIMENOrdering Facility: [facility] Address: [address] [place] [address] Performed By: #### T SCR ####CC MAIN BLOOD BANKCLIA [id number] [address] Start: 12-10-2024 Colonoscopy FREDRICK GAR RISON Start: 12-10-2024 Antibody screen FREDRICK BOLAND Comment on above: Order Comment: Speci men Type: BLOOD SPECIMENOrdering Facility: [facility] Address: [address] [place] [address] Performed By: #### T SCR ####CC MAIN BLOOD BANKCLIA [id number] [address] Start: 12-06-2024 Colonoscopy FREDRICK GAR RISON Start: 12-05-2024 Colonoscopy FREDRICK GAR RISON Start: 10-02-2024 Heparin assay Martín parisi DO Work Phone: Start: 10-02-2024 PATHOLOGIST INTERPRE TATION CBC/DIFF Martín Pendleton DO Work Phone: Start: 09-21-2024 Urinalysis MAGGIE HAMILTON Comment on above: Result Comment: URIN ALYSIS Performed By: #### [id number] #### [facility],[address] [place], [place] [id number] Start: 08-21-2024 H/O: surgery History of fasciotomy D danni Grigsby MD Work Phone: Start: 03-04-2022 Adult depression scr eening assessment Clayton Granados ICE CREAM VAN VENDOR.DIRECTOR OF CLOUD SERVICES Work Phone: Start: 01-27-2022 Adult depression scr eening assessment Clayton Granados ICE CREAM VAN VENDOR.DIRECTOR OF CLOUD SERVICES Work Phone: Start: 12-23-2021 Adult depression scr eening assessment Clayton Granados ICE CREAM VAN VENDOR.DIRECTOR OF CLOUD SERVICES Work Phone: Start: 11-12-2021 Adult depression scr eening assessment Clayton Granados ICE CREAM VAN VENDOR.DIRECTOR OF CLOUD SERVICES Work Phone: Start: 10-26-2021 Adult depression scr eening assessment Xochilt Lenzutzman ICE CREAM VAN VENDOR.DIRECTOR OF CLOUD SERVICES Work Phone: Start: 08-27-2021 Adult depression scr eening assessment Room Emergency Start: 03-12-2021 Radiologic exam knee complete 4/more views Herbert Izquierdo MD Work Phone: H/O: surgery S/P exploratory laparotomy Intestinal Trans Coord Main Work Phone: H/O: surgery S/P exploratory laparotomy Kirit Devine MD Work Phone: Plan of Treatment Date Care Activity Detail Author Start: 05-21-2029 Urine microalbumin profile [facility] Start: 03-01-2026 Annual PCP Team Chronic Disease Visit Annual PCP Team Chronic Disease Visit [facility] Start: 01-28-2026 Annual PCP Team Chronic Disease Visit Annual PCP Team Chronic Disease Visit [facility] Start: 01-10-2026 Annual PCP Team Chronic Disease Visit Annual PCP Team Chronic Disease Visit [facility] Start: 01-10-2026 Depression Screening Depression Screening [facility] Start: 11-29-2025 Hepatitis B screening Urine Albumin:Creatinine Ratio [facility] Start: 09-08-2025 PAP TESTING PAP TESTING [facility] Start: 09-04-2025 Hemoglobin A1c measurement HbA1C [facility] Start: 09-02-2025 End: 09-02-2025 Patient encounter procedure 09/02/2025 12:30 PM EDT OT/PT/Speech Visit [facility] Physical Therapy [id number] [id number] Vicente Griffin, PT [address] [place] [address] Disability assessment [facility] Comment on above: Disability assessment Start: 08-27-2025 Diabetic foot examination Diabetic Foot Exam [facility] Start: 08-20-2025 Hepatitis B surface antibody level LDL Cholesterol [facility] Start: 08-16-2025 Annual PCP Team Chronic Disease Visit Annual PCP Team Chronic Disease Visit [facility] Start: 08-07-2025 Hepatitis B Vaccine (1 of 3 - 19+ 3-dose series) Hepatitis B Vaccine (1 of 3 - 19+ 3-dose series) [facility] Comment on above: Postponed from 09/08/2002 (Declined at t his time) Start: 08-07-2025 HIV screening HIV Screening [facility] Comment on above: Postponed from 09/08/2001 (Declined at t his time) Start: 08-07-2025 Pneumococcal vaccination Pneumococcal Vaccine (1 of 2 - PCV) [facility] Comment on above: Postponed from 09/08/2002 (Declined at t his time) Start: 08-07-2025 Screening for malignant neoplasm of breast Mammogram Screening [facility] Comment on above: Postponed from 2023 (Declined at t his time) Start: 04-30-2025 End: 04-30-2025 Follow-up encounter 04/30/2025 2:30 PM [facility] Psychiatry [address] [place] [address] Clayton Grandaos, ICE CREAM VAN VENDOR.DIRECTOR OF CLOUD SERVICES [address] [place] [address] 2 month follow up/med check Psychiatry Comment on above: 2 month follow up/med check Start: 03-26-2025 End: 03-26-2025 Patient encounter procedure 03/26/2025 2:30 PM EDT Office Visit Vascular Surg Dept [address] [id number] Aleja Goncalves MD [address] [place] [address] Arterial occlusion Vascular Surg Dept Comment on above: Arterial occlusion Start: 03-26-2025 End: 03-26-2025 Patient encounter procedure Vascular Surgery Comment on above: Arterial occlusion Start: 03-06-2025 End: 06-05-2025 Hemoglobin A1c in Blood HEMOGLOBIN A1C Lab Routine Short bowel syndrome, 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 Hypokalemia Malnutrition of moderate degree (HCC) Expected: 03/06/2025 (Approximate), Expires: 06/05/2025 [facility] Work Phone: Comment on above: Expected: 03/06/2025 (Approximate), Expi res: 06/05/2025 Start: 03-06-2025 End: 06-05-2025 Potassium [Moles/volume] in Serum or Plasma POTASSIUM Lab Routine Hypokalemia Expected: 03/06/2025, Expires: 06/05/2025 [facility] Comment on above: Expected: 03/06/2025, Expires: Start: 03-04-2025 End: 03-04-2025 ambulatory 03/04/2025 2:00 PM EDT [facility] Psychiatry [address] [place] [address] Clayton Granados, ICE CREAM VAN VENDOR.DIRECTOR OF CLOUD SERVICES [address] [place] [id number] Psychiatry Start: 02-28-2025 End: 02-28-2025 Patient encounter procedure 02/28/2025 1:00 PM EDT Office Visit Family [facility] [address] [place], [place] [id number] Ed Saxena, ICE CREAM VAN VENDOR.DIRECTOR OF CLOUD SERVICES [address] [place], [place] [id number] 1 month f/up [facility] [place] Comment on above: 1 month f/up Start: 02-27-2025 End: 02-27-2025 Patient encounter procedure 02/27/2025 11:15 AM EDT Office Visit Vascular Medicine [address] [place] [address] Akua Grigsby MD [address] [place], [place] [id number] SMA thrombosis Vascular Medicine Comment on above: SMA thrombosis Start: 02-26-2025 End: 02-26-2025 ambulatory 02/26/2025 3:30 PM EDT [facility] Psychiatry [address] [place] [address] Clayton Granados, ICE CREAM VAN VENDOR.DIRECTOR OF CLOUD SERVICES [address] [place] [address] Psychiatry Start: 02-15-2025 End: 02-15-2025 Follow-up encounter 02/15/2025 11:30 AM EDT [facility] Psychiatry [address] [place] [address] Clayton Granados, ICE CREAM VAN VENDOR.DIRECTOR OF CLOUD SERVICES [address] [place] [address] Follow up appointment Psychiatry Comment on above: Follow up appointment Start: 02-04-2025 Hemoglobin A1c measurement HbA1C [facility] Start: 01-28-2025 End: 01-28-2025 Patient encounter procedure 01/28/2025 2:20 PM EDT Office Visit [facility] [address] [place] [address] Ed Saxena, [employer].DIRECTOR OF [employer]OUD SERVICES [address] [place], [place] [id number] Blood thinner [facility] Comment on above: Blood thinner Start: 01-28-2025 End: 04-29-2025 CBC panel - Blood by Automated count [facility] Comment on above: Expected: 01/28/2025, Expires: Start: 01-28-2025 End: 04-29-2025 Comprehensive metabolic 2000 panel - Serum or Plasma [facility] Work Phone: Comment on above: Expected: 01/28/2025, Expires: Start: 01-28-2025 End: 04-29-2025 PT panel - Platelet poor plasma by Coagulation assay PROTHROMBIN TIME Lab Routine 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) Expected: 01/28/2025, Expires: 04/29/2025 [facility] Work Phone: Comment on above: Expected: 01/28/2025, Expires: Start: 01-22-2025 End: 01-22-2025 Patient encounter procedure [facility] Comment on above: 1 week f/up Start: 01-14-2025 End: 04-15-2025 Basic metabolic 2000 panel - Serum or Plasma BASIC METABOLIC PANEL Lab Routine Hypokalemia Expected: 01/14/2025, Expires: 04/15/2025 [facility] Comment on above: Expected: 01/14/2025, Expires: Start: 01-14-2025 End: 04-15-2025 PT panel - Platelet poor plasma by Coagulation assay PROTHROMBIN TIME Lab Routine Blood thinned due to long-term anticoagulant use Expected: 01/14/2025, Expires: 04/15/2025 [facility] Work Phone: Comment on above: Expected: 01/14/2025, Expires: Start: 01-11-2025 End: 01-11-2025 Follow-up encounter 01/11/2025 3:00 PM EDT [facility] Psychiatry [address] [place] [address] Clayton Granados, [employer].DIRECTOR OF [employer] SERVICES [address] [place] [phone] Follow up appointment Psychiatry Comment on above: Follow up appointment Start: 01-10-2025 End: 01-10-2025 Patient encounter procedure 01/10/2025 2:00 PM EDT Office Visit [facility] [address] [place] [address] Ed Saxena, [employer].DIRECTOR OF [employer] [address] [place], [place] [phone] check up/pain (MyChart Request) [facility] [place] Comment on above: check up/pain (MyChart Request) Start: 01-08-2025 End: 01-08-2025 Patient encounter procedure Gastroenterology Comment on above: hpn page [id number] Start: 01-07-2025 End: 01-07-2025 Follow-up encounter 01/07/2025 2:00 PM EDT [facility] Psychiatry [address] [place] [phone] Clayton Granados, [employer].DIRECTOR OF [employer]D SERVICES [address] [place] [address] Follow up appointment Psychiatry Comment on above: Follow up appointment Start: 01-03-2025 End: 01-03-2025 Patient encounter procedure 01/03/2025 10:40 AM EDT Office Visit [facility] [address] [place], [place] [phone] Ed Saxena, [employer].DIRECTOR OF [employer] SERVICES [address] [place], [place] [phone] check up/pain (MyChart Request) [facility] [place] Comment on above: check up/pain (MyChart Request) Start: 01-01-2025 End: 01-01-2025 Patient encounter procedure 01/01/2025 9:00 AM EDT Office Visit Podiatry [address] [address] Suzanne Duval PA-C [address] [place] [address] DOS 12/03/2024 Podiatry Comment on above: DOS [...] 11/15/2024 8:40 AM EDT Appointment Radiology [address] [place] [address] 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] Radiology Comment on above: Short bowel syndrome without colon in co ntinuity [K90.822] Start: 11-13-2024 End: 11-13-2024 Patient encounter procedure 11/13/2024 1:40 PM EDT Office Visit Family [facility] [place] [address] [place], [place] [phone] Fredrick Boland DO [address] [place] [address] Follow up [facility] [place] Comment on above: Follow up Start: 11-08-2024 End: 11-08-2024 Patient encounter procedure 11/08/2024 9:40 AM EDT Appointment Radiology [address] [place] [address] 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] Radiology Comment on above: Short bowel syndrome without colon in co ntinuity [K90.822] Start: 11-05-2024 End: 11-05-2024 Patient encounter procedure 11/05/2024 7:30 AM EDT Appointment Radiology [address] [address] 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] Radiology Comment on above: 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] Start: 10-31-2024 End: 10-31-2024 Follow-up encounter 10/31/2024 10:30 AM EDT Visit (SP) Office Hematology/Oncology [address] [place] [address] Martín Pendleton, DO [address] [place] [address] FOLLOW UP-DISCUSS LABS* Hematology/Oncology Comment on above: FOLLOW UP-DISCUSS LABS* Start: 10-29-2024 End: 10-29-2024 Nursing evaluation of patient and report 10/29/2024 1:00 PM EDT Nurse Visit [facility] [address] [facility] [place] [address] Ostomy Issues [facility] Comment on above: Ostomy Issues Start: 10-25-2024 End: 10-25-2024 Follow-up encounter 10/25/2024 9:30 AM EDT Visit (SP) Office Hematology/Oncology [address] [place] [address] Martín Pendleton, DO [address] [place] [address] FOLLOW UP-DISCUSS LABS* Hematology/Oncology Comment on above: FOLLOW UP-DISCUSS LABS* Start: 10-22-2024 End: 01-21-2025 25-hydroxyvitamin D3 [Mass/volume] in Serum or Plasma VITAMIN D 25 HYDROXY Lab STAT 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 Expected: 10/22/2024 (Approximate), Expires: 01/21/2025 [facility] Comment on above: Expected: 10/22/2024 (Approximate), Expi res: 01/21/2025 Start: 10-22-2024 End: 01-21-2025 Alpha tocopherol [Mass/volume] in Serum or Plasma VITAMIN E/TOCOPHEROL Lab STAT 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 Expected: 10/22/2024 (Approximate), Expires: 01/21/2025 [facility] Comment on above: Expected: 10/22/2024 (Approximate), Expi res: 01/21/2025 Start: 10-22-2024 End: 01-21-2025 AMINO ACIDS, PLASMA W/ CONSULTATION AMINO ACIDS, PLASMA W/ CONSULTATION Lab STAT 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 Expected: 10/22/2024 (Approximate), Expires: 01/21/2025 [facility] Comment on above: Expected: 10/22/2024 (Approximate), Expi res: 01/21/2025 Start: 10-22-2024 End: 01-21-2025 APC RESISTANCE APC RESISTANCE Lab STAT 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 Expected: 10/22/2024 (Approximate), Expires: 01/21/2025 [facility] Comment on above: Expected: 10/22/2024 (Approximate), Expi res: 01/21/2025 Start: 10-22-2024 End: 01-21-2025 aPTT in Platelet poor plasma by Coagulation assay ACTIVATED PARTIAL THROMBOPLASTIN TIME Lab STAT 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 Expected: 10/22/2024 (Approximate), Expires: 01/21/2025 [facility] Comment on above: Expected: 10/22/2024 (Approximate), Expi res: 01/21/2025 Start: 10-22-2024 End: 01-21-2025 Ascorbate [Mass/volume] in Serum or Plasma VITAMIN C Lab STAT 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 Expected: 10/22/2024 (Approximate), Expires: 01/21/2025 [facility] Comment on above: Expected: 10/22/2024 (Approximate), Expi res: 01/21/2025 Start: 10-22-2024 End: 01-21-2025 CBC W Auto Differential panel - Blood COMPLETE BLOOD COUNT AND DIFFERENTIAL Lab STAT 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 Expected: 10/22/2024 (Approximate), Expires: 01/21/2025 [facility] Comment on above: Expected: 10/22/2024 (Approximate), Expi res: 01/21/2025 Start: 10-22-2024 End: 01-21-2025 Cobalamin (Vitamin B12) [Mass/volume] in Serum or Plasma VITAMIN B12 Lab STAT 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 Expected: 10/22/2024 (Approximate), Expires: 01/21/2025 [facility] Comment on above: Expected: 10/22/2024 (Approximate), Expi res: 01/21/2025 Start: 10-22-2024 End: 01-21-2025 Comprehensive metabolic 2000 panel - Serum or Plasma COMPREHENSIVE METABOLIC PANEL Lab STAT 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 Expected: 10/22/2024 (Approximate), Expires: 01/21/2025 [facility] Comment on above: Expected: 10/22/2024 (Approximate), Expi res: 01/21/2025 Start: 10-22-2024 End: 01-21-2025 Ferritin [Mass/volume] in Serum or Plasma FERRITIN Lab STAT 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 Expected: 10/22/2024 (Approximate), Expires: 01/21/2025 [facility] Comment on above: Expected: 10/22/2024 (Approximate), Expi res: 01/21/2025 Start: 10-22-2024 End: 01-21-2025 Folate [Mass/volume] in Serum or Plasma FOLATE, SERUM Lab STAT 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 Expected: 10/22/2024 (Approximate), Expires: 01/21/2025 [facility] Comment on above: Expected: 10/22/2024 (Approximate), Expi res: 01/21/2025 Start: 10-22-2024 End: 01-21-2025 HYPERCOAG DIAG PNL HYPERCOAG DIAG PNL Lab STAT 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 Expected: 10/22/2024 (Approximate), Expires: 01/21/2025 [facility] Comment on above: Expected: 10/22/2024 (Approximate), Expi res: 01/21/2025 Start: 10-22-2024 End: 01-21-2025 Iron and Iron binding capacity panel - Serum or Plasma IRON AND TIBC Lab STAT 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 Expected: 10/22/2024 (Approximate), Expires: 01/21/2025 [facility] Comment on above: Expected: 10/22/2024 (Approximate), Expi res: 01/21/2025 Start: 10-22-2024 End: 01-21-2025 Magnesium [Mass/volume] in Serum or Plasma MAGNESIUM Lab STAT 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 Expected: 10/22/2024 (Approximate), Expires: 01/21/2025 [facility] Comment on above: Expected: 10/22/2024 (Approximate), Expi res: 01/21/2025 Start: 10-22-2024 End: 01-21-2025 Methylmalonate [Moles/volume] in Serum or Plasma METHYLMALONIC ACID Lab STAT 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 Expected: 10/22/2024 (Approximate), Expires: 01/21/2025 [facility] Comment on above: Expected: 10/22/2024 (Approximate), Expi res: 01/21/2025 Start: 10-22-2024 End: 01-21-2025 Niacin [Mass/volume] in Serum or Plasma VITAMIN B3/NIACIN Lab STAT 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 Expected: 10/22/2024 (Approximate), Expires: 01/21/2025 [facility] Comment on above: Expected: 10/22/2024 (Approximate), Expi res: 01/21/2025 Start: 10-22-2024 End: 01-21-2025 Parathyrin.intact [Mass/volume] in Serum or Plasma PTH INTACT Lab STAT 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 Expected: 10/22/2024 (Approximate), Expires: 01/21/2025 [facility] Comment on above: Expected: 10/22/2024 (Approximate), Expi res: 01/21/2025 Start: 10-22-2024 End: 01-21-2025 Phosphate [Mass/volume] in Serum or Plasma PHOSPHORUS INORGANIC Lab STAT 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 Expected: 10/22/2024 (Approximate), Expires: 01/21/2025 [facility] Comment on above: Expected: 10/22/2024 (Approximate), Expi res: 01/21/2025 Start: 10-22-2024 End: 01-21-2025 Prealbumin [Mass/volume] in Serum or Plasma PREALBUMIN Lab STAT 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 Expected: 10/22/2024 (Approximate), Expires: 01/21/2025 [facility] Comment on above: Expected: 10/22/2024 (Approximate), Expi res: 01/21/2025 Start: 10-22-2024 End: 01-21-2025 PT panel - Platelet poor plasma by Coagulation assay PROTHROMBIN TIME Lab STAT 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 Expected: 10/22/2024 (Approximate), Expires: 01/21/2025 [facility] Comment on above: Expected: 10/22/2024 (Approximate), Expi res: 01/21/2025 Start: 10-22-2024 End: 01-21-2025 Pyridoxine [Mass/volume] in Serum or Plasma VITAMIN B6/PYRIDOXIN Lab STAT 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 Expected: 10/22/2024 (Approximate), Expires: 01/21/2025 [facility] Comment on above: Expected: 10/22/2024 (Approximate), Expi res: 01/21/2025 Start: 10-22-2024 End: 01-21-2025 Retinol [Mass/volume] in Serum or Plasma VITAMIN A/RETINOL Lab STAT 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 Expected: 10/22/2024 (Approximate), Expires: 01/21/2025 [facility] Comment on above: Expected: 10/22/2024 (Approximate), Expi res: 01/21/2025 Start: 10-22-2024 End: 01-21-2025 Thyrotropin [Units/volume] in Serum or Plasma THYROID STIMULATING HORMONE Lab STAT 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 Expected: 10/22/2024 (Approximate), Expires: 01/21/2025 [facility] Comment on above: Expected: 10/22/2024 (Approximate), Expi res: 01/21/2025 Start: 10-22-2024 End: 01-21-2025 TOXICOLOGY PANEL BLD TOXICOLOGY PANEL BLD Lab STAT 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 Expected: 10/22/2024 (Approximate), Expires: 01/21/2025 [facility] Comment on above: Expected: 10/22/2024 (Approximate), Expi res: 01/21/2025 Start: 10-22-2024 End: 01-21-2025 TRACE ELEMENTS/TPN TRACE ELEMENTS/TPN Lab STAT 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 Expected: 10/22/2024 (Approximate), Expires: 01/21/2025 [facility] Comment on above: Expected: 10/22/2024 (Approximate), Expi res: 01/21/2025 Start: 10-22-2024 End: 01-21-2025 TYPE + SCREEN TYPE + SCREEN Blood Bank STAT 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 Expected: 10/22/2024 (Approximate), Expires: 01/21/2025 [facility] Work Phone: Comment on above: Expected: 10/22/2024 (Approximate), Expi res: 01/21/2025 Start: 10-22-2024 End: 10-22-2024 Patient encounter procedure 10/22/2024 11:00 AM EDT Office Visit Vascular Medicine [address] [place] [address] Akua Grigsby MD [address] [place] [address] 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 Comment on above: DX: SMA and leg arterial thrombosis Start: 10-17-2024 End: 10-17-2024 Patient encounter procedure General Surgery Comment on above: post op ACS Start: 10-11-2024 End: 01-10-2025 TOXICOLOGY SCREEN, ROUTINE URINE TOXICOLOGY SCREEN, ROUTINE URINE Lab Routine 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 Expected: 10/11/2024, Expires: 01/10/2025 [facility] Comment on above: Expected: 10/11/2024, Expires: Start: 10-10-2024 End: 10-10-2024 Patient encounter procedure 10/10/2024 12:15 PM EDT Office Visit General Surgery [address] [address] Peter Smith MD [address] [place] [address] post op ACS General Surgery Comment on above: post op ACS Start: 10-06-2024 End: 01-05-2025 CBC W Auto Differential panel - Blood COMPLETE BLOOD COUNT AND DIFFERENTIAL Lab Routine Anemia, unspecified type Expected: 10/06/2024, Expires: 01/05/2025 [facility] Comment on above: Expected: 10/06/2024, Expires: Start: 10-06-2024 End: 01-05-2025 Iron and Iron binding capacity panel - Serum or Plasma IRON AND TIBC Lab Routine Anemia, unspecified type Expected: 10/06/2024, Expires: 01/05/2025 [facility] Work Phone: Comment on above: Expected: 10/06/2024, Expires: Start: 10-02-2024 End: 10-02-2024 ambulatory 10/02/2024 3:00 PM EDT Visit (SP) Office Hematology/Oncology [address] [facility] [place], [place] [address] Martín Pendleton DO [address] [facility] [place] [address] BISQUE TILE BURNER/DX: Hematology/Oncology Comment on above: BISQUE TILE BURNER/DX: Start: 10-02-2024 End: 01-01-2025 B 2 GPI IGG & IGM [facility] Comment on above: Expected: 10/02/2024, Expires: Start: 10-02-2024 End: 01-01-2025 Cardiolipin IgG and IgM panel - Serum [facility] Comment on above: Expected: 10/02/2024, Expires: Start: 10-02-2024 End: 01-01-2025 Ferritin [Mass/volume] in Serum or Plasma [facility] Comment on above: Expected: 10/02/2024, Expires: Start: 10-02-2024 End: 01-01-2025 Iron and Iron binding capacity panel - Serum or Plasma [facility] Comment on above: Expected: 10/02/2024, Expires: Start: 10-02-2024 End: 01-01-2025 MONOCLONAL PROTEIN, SERUM (BLOOD) [facility] Work Phone: Comment on above: Expected: 10/02/2024, Expires: Start: 10-02-2024 End: 01-01-2025 PROTEIN C FUNCT [facility] Comment on above: Expected: 10/02/2024, Expires: Start: 10-02-2024 End: 01-01-2025 PROTEIN ELECTROPHORESIS SERUM W/INTERP [facility] Comment on above: Expected: 10/02/2024, Expires: Start: 10-02-2024 End: 01-01-2025 PROTEIN S CLOTTABLE [facility] Comment on above: Expected: 10/02/2024 (Approximate), Expi res: 01/01/2025 Start: 10-02-2024 End: 01-01-2025 PROTEIN S IMMUNO [facility] Comment on above: Expected: 10/02/2024, Expires: Start: 10-02-2024 End: 01-01-2025 Transferrin receptor.soluble [Mass/volume] in Serum or Plasma [facility] Comment on above: Expected: 10/02/2024, Expires: Start: 10-01-2024 End: 10-01-2024 Patient encounter procedure 10/01/2024 11:00 AM EDT Office Visit Vascular Medicine [address] [place] [id number] Akua Grigsby MD [address] [place] [address] 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 Comment on above: DX: SMA and leg arterial thrombosis Start: 09-19-2024 End: 09-19-2024 Patient encounter procedure Vascular Surgery Comment on above: Hospital FU DX:SMA occlusion Start: 09-10-2024 End: 09-10-2024 Follow-up encounter 09/10/2024 2:00 PM EDT [facility] Psychiatry [address] [place] [address] Clayton Granados, [employer].DIRECTOR OF [employer] [address] [place] [address] Follow up Psychiatry Comment on above: Follow up Start: 08-20-2024 End: 08-20-2024 Laps abd prtm&omentum dx w/wo spec br/wa spx LAPAROSCOPY DIAGNOSTIC Aortic mural thrombus (HCC) 08/20/2024 12:41 PM EST [facility] & VAS Start: 08-20-2024 End: 08-20-2024 Slctv cathj 2nd order abdl pel/lxtr art brnch ANGIOGRAM MESENTERIC Aortic mural thrombus (HCC) 08/20/2024 12:[address] [facility] [address] [facility] V[facility] Start: 06-25-2024 End: 06-25-2024 Patient encounter procedure 06/25/2024 11:00 AM EST Office Visit [facility] [address] [place], [place] [id number] Yesenia Rangel, [employer].DIRECTOR OF [employer] SERVICES [address] [place], [place] [address] physical Family [facility] Comment on above: physical Start: 05-18-2024 End: 05-18-2024 ambulatory 05/18/2024 2:00 PM EST [facility] Psychiatry [address] [place] [address] Clayton Granados, [employer].DIRECTOR OF [employer] SERVICES [address] [place] [address] med check Psychiatry Comment on above: med check Start: 05-18-2024 End: 08-17-2024 BENZO CONFIRM, URINE BENZO CONFIRM, URINE Lab Routine Encounter for long-term (current) use of medications Expected: 05/18/2024, Expires: 08/17/2024 [facility] Comment on above: Expected: 05/18/2024, Expires: Start: 05-18-2024 End: 08-17-2024 CBC W Auto Differential panel - Blood COMPLETE BLOOD COUNT AND DIFFERENTIAL Lab Routine Encounter for long-term (current) use of medications Expected: 05/18/2024, Expires: 08/17/2024 [facility] Comment on above: Expected: 05/18/2024, Expires: Start: 05-18-2024 End: 08-17-2024 Comprehensive metabolic 2000 panel - Serum or Plasma COMPREHENSIVE METABOLIC PANEL Lab Routine Encounter for long-term (current) use of medications Expected: 05/18/2024, Expires: 08/17/2024 [facility] Work Phone: Comment on above: Expected: 05/18/2024, Expires: Start: 05-18-2024 End: 08-17-2024 Hemoglobin A1c in Blood HEMOGLOBIN A1C Lab Routine Encounter for long-term (current) use of medications Expected: 05/18/2024, Expires: 08/17/2024 [facility] Comment on above: Expected: 05/18/2024, Expires: Start: 05-18-2024 End: 08-17-2024 Lipid 1996 panel - Serum or Plasma LIPID PANEL BASIC Lab Routine Encounter for long-term (current) use of medications Expected: 05/18/2024, Expires: 08/17/2024 [facility] Comment on above: Expected: 05/18/2024, Expires: Start: 05-18-2024 End: 08-17-2024 PHOSPHATIDYLETHANOL (PETH) PHOSPHATIDYLETHANOL (PETH) Lab Routine Encounter for long-term (current) use of medications Expected: 05/18/2024, Expires: 08/17/2024 [facility] Comment on above: Expected: 05/18/2024, Expires: Start: 05-18-2024 End: 08-17-2024 Thyrotropin [Units/volume] in Serum or Plasma THYROID STIMULATING HORMONE Lab Routine Encounter for long-term (current) use of medications Expected: 05/18/2024, Expires: 08/17/2024 [facility] Comment on above: Expected: 05/18/2024, Expires: Start: 05-18-2024 End: 08-17-2024 TOXICOLOGY SCREEN, ROUTINE URINE TOXICOLOGY SCREEN, ROUTINE URINE Lab Routine Encounter for long-term (current) use of medications Expected: 05/18/2024, Expires: 08/17/2024 [facility] Comment on above: Expected: 05/18/2024, Expires: Start: 03-03-2024 End: 03-03-2024 Follow-up encounter 03/03/2024 1:00 PM EDT [facility] Psychiatry [address] [place] [phone] Clayton Granados, [employer].DIRECTOR OF [employer]D SERVICES [address] [place] [phone] Follow up Psychiatry Comment on above: Follow up Start: 02-26-2024 Covid-19 Vaccine ( season) Covid-19 Vaccine ( season) [facility] Start: 02-26-2024 Covid-19 Vaccine () Covid-19 Vaccine () [facility] Start: 02-26-2024 Influenza vaccination [facility] Start: 01-19-2024 End: 01-19-2024 Follow-up encounter 01/19/2024 9:00 AM EDT [facility] Psychiatry [address] [place] [address] Clayton Granados, [employer].DIRECTOR OF [employer]D SERVICES [address] [place] [phone] Follow up Psychiatry Comment on above: Follow up Start: 12-30-2023 End: 12-30-2023 Follow-up encounter 12/30/2023 2:00 PM EDT [facility] Psychiatry [address] [place] [phone] Clayton Granados, [employer].DIRECTOR OF [employer] SERVICES [address] [place] [phone] FOLLOW UP Psychiatry Comment on above: FOLLOW UP Start: 10-28-2023 End: 10-28-2023 Patient encounter procedure 10/28/2023 8:20 AM EDT Office Visit [facility] [place] [address] [facility] [place], [place] [phone] Fredrick Boland DO [address] [place] [address] missing periods [facility] [place] Comment on above: missing periods Start: 2023 Screening for malignant neoplasm of breast Mammogram Screening [facility] Start: 09-08-2023 End: 12-08-2023 TOX SCREEN ROUT UR TOX SCREEN ROUT UR Lab Routine Encounter for long-term (current) use of medications History of marijuana use Expected: 09/08/2023, Expires: 12/08/2023 [facility] Work Phone: Comment on above: Expected: 09/08/2023, Expires: Start: 09-02-2023 End: 12-02-2023 Comprehensive metabolic 2000 panel - Serum or Plasma COMP METABOLIC PANEL Lab Routine Encounter for long-term (current) use of medications Expected: 09/02/2023, Expires: 12/02/2023 [facility] Work Phone: Comment on above: Expected: 09/02/2023, Expires: Start: 09-02-2023 End: 12-02-2023 Hemoglobin A1c in Blood HGB A1C Lab Routine Encounter for long-term (current) use of medications Expected: 09/02/2023, Expires: 12/02/2023 [facility] Work Phone: Comment on above: Expected: 09/02/2023, Expires: Start: 09-02-2023 End: 12-02-2023 Lipid 1996 panel - Serum or Plasma LIPID PANEL BASIC Lab Routine Encounter for long-term (current) use of medications Expected: 09/02/2023, Expires: 12/02/2023 [facility] Work Phone: Comment on above: Expected: 09/02/2023, Expires: Start: 07-12-2023 HPV TESTING HPV TESTING [facility] Start: 07-12-2023 PAP TESTING PAP TESTING [facility] Start: 07-12-2023 Screening for malignant neoplasm of cervix [facility] Start: 06-27-2023 Depression Assessment Depression Assessment [facility] Start: 05-16-2023 End: 08-15-2023 Comprehensive metabolic 2000 panel - Serum or Plasma COMP METABOLIC PANEL Lab Routine Encounter for long-term (current) use of medications Expected: 05/16/2023, Expires: 08/15/2023 [facility] Work Phone: Comment on above: Expected: 05/16/2023, Expires: 4 Start: 05-16-2023 End: 08-15-2023 Hemoglobin A1c in Blood HGB A1C Lab Routine Encounter for long-term (current) use of medications Expected: 05/16/2023, Expires: 08/15/2023 [facility] Work Phone: Comment on above: Expected: 05/16/2023, Expires: 4 Start: 05-16-2023 End: 08-15-2023 Lipid 1996 panel - Serum or Plasma LIPID PANEL BASIC Lab Routine Encounter for long-term (current) use of medications Expected: 05/16/2023, Expires: 08/15/2023 [facility] Work Phone: Comment on above: Expected: 05/16/2023, Expires: 4 Start: 03-04-2023 Adult depression screening assessment DEPRESSION SCREENING [facility] Start: 02-25-2023 Covid-19 Vaccine ( season) Covid-19 Vaccine () [facility] Start: 02-25-2023 Influenza vaccination [facility] Start: 01-27-2023 Adult depression screening assessment DEPRESSION SCREENING [facility] Start: 12-24-2022 Influenza vaccination INFLUENZA (#1) [facility] Comment on above: Postponed from 02/25/2022 (Declined at t his time) Start: 12-23-2022 Adult depression screening assessment DEPRESSION SCREENING [facility] Start: 11-12-2022 Adult depression screening assessment DEPRESSION SCREENING [facility] Start: 10-28-2022 End: 12-28-2022 TOX SCREEN ROUT UR TOX SCREEN ROUT UR Lab Routine History of marijuana use Expected: 10/28/2022, Expires: 12/28/2022 [facility] Work Phone: Comment on above: Expected: 10/28/2022, Expires: 3 Start: 10-26-2022 Adult depression screening assessment DEPRESSION SCREENING [facility] Start: 09-30-2022 End: 11-30-2022 Basic metabolic 2000 panel - Serum or Plasma [facility] Work Phone: Comment on above: Expected: 09/30/2022, Expires: 3 Start: 09-30-2022 End: 11-30-2022 Choriogonadotropin ( test) [Presence] in Urine [facility] Work Phone: Comment on above: Expected: 09/30/2022, Expires: 3 Start: 09-30-2022 End: 11-30-2022 ETHYL GLUCURONIDE UR SCR [facility] Work Phone: Comment on above: Expected: 09/30/2022, Expires: 3 Start: 09-30-2022 End: 11-30-2022 TOX SCREEN ROUT UR [facility] Work Phone: Comment on above: Expected: 09/30/2022, Expires: 3 Start: 08-27-2022 Adult depression screening assessment DEPRESSION SCREENING [facility] Start: 07-20-2022 COVID-19 VACCINE (#1) COVID-19 VACCINE (#1) [facility] Comment on above: Postponed from 09/08/1988 (Declined at t his time) Postponed from 03/11 (Declined at this time) Start: 07-20-2022 COVID-19 VACCINE (1) COVID-19 VACCINE (1) [facility] Comment on above: Postponed from 09/08/1988 (Declined at t his time) Start: 07-05-2022 End: 09-04-2022 TOX SCREEN ROUT UR TOX SCREEN ROUT UR Lab Routine Marijuana use Expected: 07/05/2022, Expires: 09/04/2022 [facility] Work Phone: Comment on above: Expected: 07/05/2022, Expires: 3 Start: 06-27-2022 DEPRESSION ASSESSMENT DEPRESSION ASSESSMENT [facility] Start: 02-25-2022 Influenza vaccination [facility] Start: 02-02-2022 End: 04-04-2022 25-hydroxyvitamin D3 [Mass/volume] in Serum or Plasma VITAMIN D 25 HYDROXY Lab Routine Fatigue, unspecified type Myalgia Expected: 02/02/2022, Expires: 04/04/2022 [facility] Work Phone: Comment on above: Expected: 02/02/2022, Expires: 2 Start: 02-02-2022 End: 04-04-2022 C reactive protein [Mass/volume] in Serum or Plasma C-REACTIVE PROTEIN (CRP) Lab Routine Bilateral hand pain Foot pain, bilateral Expected: 02/02/2022, Expires: 04/04/2022 [facility] Work Phone: Comment on above: Expected: 02/02/2022, Expires: 2 Start: 02-02-2022 End: 04-04-2022 CBC W Auto Differential panel - Blood CBC + DIFF Lab Routine Fatigue, unspecified type Myalgia Expected: 02/02/2022, Expires: 04/04/2022 [facility] Work Phone: Comment on above: Expected: 02/02/2022, Expires: 2 Start: 02-02-2022 End: 04-04-2022 Cobalamin (Vitamin B12) [Mass/volume] in Serum or Plasma VITAMIN B12 BLOOD Lab Routine Fatigue, unspecified type Myalgia Expected: 02/02/2022, Expires: 04/04/2022 [facility] Work Phone: Comment on above: Expected: 02/02/2022, Expires: 2 Start: 02-02-2022 End: 04-04-2022 Comprehensive metabolic 2000 panel - Serum or Plasma COMP METABOLIC PANEL Lab Routine Fatigue, unspecified type Myalgia Expected: 02/02/2022, Expires: 04/04/2022 [facility] Work Phone: Comment on above: Expected: 02/02/2022, Expires: 2 Start: 02-02-2022 End: 04-04-2022 Cyclic citrullinated peptide IgG Ab [Units/volume] in Serum or Plasma CCP ANTIBODY IGG Lab Routine Bilateral hand pain Foot pain, bilateral Expected: 02/02/2022, Expires: 04/04/2022 [facility] Work Phone: Comment on above: Expected: 02/02/2022, Expires: 2 Start: 02-02-2022 End: 04-04-2022 Erythrocyte sedimentation rate SED RATE WESTERGREN Lab Routine Bilateral hand pain Foot pain, bilateral Expected: 02/02/2022, Expires: 04/04/2022 [facility] Work Phone: Comment on above: Expected: 02/02/2022, Expires: 2 Start: 02-02-2022 End: 04-04-2022 Extractable nuclear Ab panel - Serum ANTI ABIGAIL ID Lab Routine Bilateral hand pain Foot pain, bilateral Expected: 02/02/2022, Expires: 04/04/2022 [facility] Work Phone: Comment on above: Expected: 02/02/2022, Expires: 2 Start: 02-02-2022 End: 04-04-2022 Ferritin [Mass/volume] in Serum or Plasma FERRITIN BLD Lab Routine Myalgia Iron deficiency Expected: 02/02/2022, Expires: 04/04/2022 [facility] Work Phone: Comment on above: Expected: 02/02/2022, Expires: 2 Start: 02-02-2022 End: 04-04-2022 Iron and Iron binding capacity panel - Serum or Plasma IRON + TIBC Lab Routine Myalgia Iron deficiency Expected: 02/02/2022, Expires: 04/04/2022 [facility] Work Phone: Comment on above: Expected: 02/02/2022, Expires: 2 Start: 02-02-2022 End: 04-04-2022 Magnesium [Mass/volume] in Serum or Plasma MAGNESIUM BLD Lab Routine Bilateral hand pain Foot pain, bilateral Expected: 02/02/2022, Expires: 04/04/2022 [facility] Work Phone: Comment on above: Expected: 02/02/2022, Expires: 2 Start: 02-02-2022 End: 04-04-2022 Nuclear Ab [Presence] in Serum by Immunoassay ROBERTA BLOOD Lab Routine Bilateral hand pain Foot pain, bilateral Expected: 02/02/2022, Expires: 04/04/2022 [facility] Work Phone: Comment on above: Expected: 02/02/2022, Expires: 2 Start: 02-02-2022 End: 04-04-2022 Rheumatoid factor [Units/volume] in Serum or Plasma RHEUMATOID FACTOR BL Lab Routine Bilateral hand pain Foot pain, bilateral Expected: 02/02/2022, Expires: 04/04/2022 [facility] Work Phone: Comment on above: Expected: 02/02/2022, Expires: 2 Start: 01-11-2022 End: 03-13-2022 TOX SCREEN ROUT UR TOX SCREEN ROUT UR Lab Routine ELIJAH (generalized anxiety disorder) Expected: 01/11/2022, Expires: 03/13/2022 [facility] Work Phone: Comment on above: Expected: 01/11/2022, Expires: 2 Start: 10-27-2021 End: 12-27-2021 Comprehensive metabolic 2000 panel - Serum or Plasma COMP METABOLIC PANEL Lab Routine ELIJAH (generalized anxiety disorder) Bipolar 2 disorder (HCC) Expected: 10/27/2021, Expires: 12/27/2021 [facility] Work Phone: Comment on above: Expected: 10/27/2021, Expires: 2 Start: 10-27-2021 End: 12-27-2021 TOX SCREEN ROUT UR TOX SCREEN ROUT UR Lab Routine ELIJAH (generalized anxiety disorder) Bipolar 2 disorder (HCC) Expected: 10/27/2021, Expires: 12/27/2021 [facility] Work Phone: Comment on above: Expected: 10/27/2021, Expires: 2 Start: 09-08-2010 HPV Vaccine (1 - 3-dose SCDM series) HPV Vaccine (1 - 3-dose SCDM series) [facility] Start: 09-08-2002 Hepatitis B Vaccine (1 of 3 - 19+ 3-dose series) Hepatitis B Vaccine (1 of 3 - 19+ 3-dose series) [facility] Start: 09-08-2002 ONE PNEUMOVAX PRIOR TO AGE 65 ONE PNEUMOVAX PRIOR TO AGE 65 [facility] Start: 09-08-2002 Pneumococcal vaccination Pneumococcal Vaccine (1 of 2 - PCV) [facility] Start: 09-08-2001 Depression Screening Depression Screening [facility] Start: 09-08-2001 HEPATITIS C SCREENING HEPATITIS C SCREENING [facility] Start: 09-08-2001 Hepatitis C screening Hepatitis C Screening [facility] Start: 09-08-2001 HIV SCREENING HIV SCREENING [facility] Start: 09-08-2001 HIV screening HIV Screening [facility] Start: 09-08-1993 Glaucoma screening Dilated Retinal Exam [facility] Start: 09-08-1993 Hepatitis B screening Urine Albumin:Creatinine Ratio [facility] Start: 09-08-1989 PNEUMOCOCCAL (1 - PCV) PNEUMOCOCCAL (1 - PCV) [facility] Start: 09-08-1989 [facility] Start: 03-11-1984 COVID-19 VACCINE (#1) COVID-19 VACCINE (#1) [facility] Start: 1985 HEPATITIS B (1 of 3 - 3-dose series) HEPATITIS B (1 of 3 - 3-dose series) [facility] Start: 1985 Hepatitis B Vaccine (1 of 3 - 3-dose series) Hepatitis B Vaccine (1 of 3 - 3-dose series) [facility] BETA 2 GLYCOPROTEIN, IGG BETA 2 GLYCOPROTEIN, IGG Lab Routine Antiphospholipid antibody syndrome (HCC) Superior mesenteric artery thrombosis (HCC) 10/02/2024 3:47 PM EDT [facility] BETA 2 GLYCOPROTEIN, IGM BETA 2 GLYCOPROTEIN, IGM Lab Routine Antiphospholipid antibody syndrome (HCC) Superior mesenteric artery thrombosis (HCC) 10/02/2024 3:47 PM EDT [facility] Cardiolipin IgA Ab [Units/volume] in Serum by Immunoassay CARDIOLIPIN IGA ABS Lab Routine Antiphospholipid antibody syndrome (HCC) Superior mesenteric artery thrombosis (HCC) 10/02/2024 3:47 PM EDT [facility] CARDIOLIPIN IGG ABS CARDIOLIPIN IGG ABS Lab Routine Antiphospholipid antibody syndrome (HCC) Superior mesenteric artery thrombosis (HCC) 10/02/2024 3:47 PM EDT [facility] CARDIOLIPIN IGM ABS CARDIOLIPIN IGM ABS Lab Routine Antiphospholipid antibody syndrome (HCC) Superior mesenteric artery thrombosis (HCC) 10/02/2024 3:47 PM EDT [facility] End: 11-10-2025 CT Chest W contrast IV CT CHEST W IVCON Radiology Routine Disorder of artery or arteriole 1 Occurrences starting 10/11/2024 until 11/10/2025 [facility] Comment on above: 1 Occurrences starting 10/11/2024 until 11/10/2025 End: 12-24-2022 ECG COMPLETE ECG COMPLETE ECG Routine ELIJAH (generalized anxiety disorder) 1 Occurrences starting 12/24/2021 until 12/24/2022 [facility] Work Phone: Comment on above: 1 Occurrences starting 12/24/2021 until 12/24/2022 End: 03-14-2024 ECG COMPLETE ECG COMPLETE ECG Routine Encounter for long-term (current) use of medications 1 Occurrences starting 03/14/2023 until 03/14/2024 [facility] Work Phone: Comment on above: 1 Occurrences starting 03/14/2023 until 03/14/2024 End: 05-18-2025 ECG COMPLETE ECG COMPLETE ECG Routine Encounter for long-term (current) use of medications 1 Occurrences starting 05/18/2024 until 05/18/2025 [facility] Comment on above: 1 Occurrences starting 05/18/2024 until 05/18/2025 ECG COMPLETE ECG COMPLETE ECG Routine Medication management Ordered: 08/07/2024 [facility] Work Phone: Comment on above: Ordered: 08/07/2024 End: 10-11-2025 EGD DIAGNOSTIC EGD DIAGNOSTIC Endoscopy Routine 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 1 Occurrences starting 10/11/2024 until 10/11/2025 [facility] Comment on above: 1 Occurrences starting 10/11/2024 until 10/11/2025 End: 10-11-2025 Flexible sigmoidoscopy study COLONOSCOPY DIAGNOSTIC Endoscopy Routine 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 1 Occurrences starting 10/11/2024 until 10/11/2025 [facility] Comment on above: 1 Occurrences starting 10/11/2024 until 10/11/2025 IMMUNOFIXATION SCREE N, SERUM IMMUNOFIXATION SCREEN, SERUM Lab Routine Antiphospholipid antibody syndrome (HCC) Superior mesenteric artery thrombosis (HCC) 10/02/2024 3:47 PM EDT [facility] KAPPA/JULIAN,FREE,SER KAPPA/JULIAN,F REE,SER Lab Routine Antiphospholipid antibody syndrome (HCC) Superior mesenteric artery thrombosis (HCC) 10/02/2024 3:47 PM EDT [facility] End: 11-17-2024 MG Breast Screening MILO SCREENING Radiology Routine Encounter for screening mammogram for breast cancer 1 Occurrences starting 10/19/2023 until 11/17/2024 [facility] Work Phone: Comment on above: 1 Occurrences starting 10/19/2023 until 11/17/2024 Protein [Mass/volume ] in Serum or Plasma PROTEIN, TOTAL Lab Routine Antiphospholipid antibody syndrome (HCC) Superior mesenteric artery thrombosis (HCC) 10/02/2024 3:47 PM EDT [facility] PROTEIN ELECTROPHORE SIS SERUM (P) PROTEIN ELECTROPHORESIS SERUM (P) Lab Routine Antiphospholipid antibody syndrome (HCC) Superior mesenteric artery thrombosis (HCC) 10/02/2024 3:47 PM EDT [facility] End: 03-11-2026 PT panel - Platelet poor plasma by Coagulation assay PROTHROMBIN TIME Lab Routine Deep vein thrombosis (DVT) of proximal lower extremity, unspecified chronicity, unspecified laterality (HCC) 2x per week for 99 Occurrences starting 03/11/2025 until 03/11/2026 [facility] Work Phone: Comment on above: 2x per week for 99 Occurrences starting 03/11/2025 until 03/11/2026 End: 11-10-2025 RF Colon Views W barium contrast MD XR COLON SINGLE CONTRAST Radiology Routine 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 1 Occurrences starting 10/11/2024 until 11/10/2025 [facility] Comment on above: 1 Occurrences starting 10/11/2024 until 11/10/2025 End: 11-10-2025 RF Gastrointestinal tract upper Views W barium contrast PO XR UPPER GI SINGLE CONTRAST Radiology Routine 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 1 Occurrences starting 10/11/2024 until 11/10/2025 [facility] Comment on above: 1 Occurrences starting 10/11/2024 until 11/10/2025 End: 09-11-2025 US Lower extremity artery - bilateral [facility] Work Phone: Comment on above: 1 Occurrences starting 09/11/2024 until 09/11/2025 End: 09-19-2025 US Lower extremity artery - bilateral [facility] Work Phone: Comment on above: 1 Occurrences starting 09/19/2024 until 09/19/2025 End: 03-04-2023 XR FOOT GENERAL 3V AP/LAT/OBL BILATERAL XR FOOT GENERAL 3V AP/LAT/OBL BILATERAL Radiology Routine Foot pain, bilateral 1 Occurrences starting 02/02/2022 until 03/04/2023 [facility] Work Phone: Comment on above: 1 Occurrences starting 02/02/2022 until 03/04/2023 End: 11-10-2025 XR GI SMALL BOWEL FOLLOW-THRU XR GI SMALL BOWEL FOLLOW-THRU Radiology Routine 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 Immunizations Immunization Date Immunization Notes Care Provider Fa amy 05-21-2019 tetanus toxoid, redu leilani diphtheria toxoid, and acellular pertussis vaccine, adsorbed Room Emergency [facility] 07-12-2018 influenza virus vacc ine, unspecified formulation Clayton Granados APRN.CNP Work Phone: [facility] Payers Date Payer Category Payer Self-pay 2022 Unknown [id number] 2014 Medicaid [place] [employer] [place] [employer] [id number] 2014-Present [phone] [address] [place] [address] Medicaid [id number] 2014 Medicaid [id number]. [id number] 1983 Unknown [id number] 2.16.840.1.156828.3.579.2.66 8 1983 Unknown [id number] 2.16.840.1.269716.3.579.2.65 1 1983 Unknown [id number] 2.16.840.1.668399.3.579.2.65 1 1983 Unknown [id number] 2.16.840.1.077023.3.579.2.65 1 1983 Unknown [id number] 2.16.840.1.783497.3.579.2.65 1 1983 Unknown [id number] 2.16.840.1.965571.3.579.2.65 1 1983 Unknown [id number] 2.16.840.1.560192.3.579.2.62 7 Unknown [id number] 2.16.840.1.354480.3.579.2.46 2 Unknown [id number] 2.16.840.1.880468.3.579.2.46 2 Unknown [id number] 2.16.840.1.284155.3.579.2.46 2 Unknown [id number] 2.16.840.1.353829.3.579.2.46 2 Unknown [id number] 2.16.840.1.894513.3.579.2.46 2 Unknown [id number] 2.16.840.1.704136.3.579.2.46 2 Unknown [id number] 2.16.840.1.008911.3.579.2.46 2 Unknown [id number] 2.16.840.1.125935.3.579.2.46 2 Unknown [id number] 2.16.840.1.847590.3.579.2.46 2 Unknown [id number] 2.16.840.1.099645.3.579.2.46 2 Unknown [id number] 2.16.840.1.788802.3.579.2.46 2 Unknown [id number] 2.16.840.1.008139.3.579.2.46 2 Unknown [id number] 2.16.840.1.799832.3.579.2.46 2 Unknown [id number] 2.16.840.1.906300.3.579.2.46 2 Unknown [id number] 2.16.840.1.109618.3.579.2.46 2 Unknown [id number] 2.16.840.1.233041.3.579.2.46 2 Unknown [id number] 2.16.840.1.448202.3.579.2.46 2 Unknown [id number] 2.16.840.1.190963.3.579.2.46 2 Unknown [id number] 2.16.840.1.485597.3.579.2.46 2 Unknown [id number] 2.16.840.1.461904.3.579.2.46 2 Unknown [id number] 2.16.840.1.621596.3.579.2.46 2 Unknown [id number] 2.16.840.1.403209.3.579.2.46 2 Unknown [id number] 2.16.840.1.106285.3.579.2.46 2 Unknown [id number] 2.16.840.1.601192.3.579.2.46 2 Unknown [id number] 2.16.840.1.939489.3.579.2.46 2 Unknown [id number] 2.16.840.1.120123.3.579.2.46 2 Unknown [id number] 2.16.840.1.351295.3.579.2.46 2 Unknown [id number] 2.16.840.1.934949.3.579.2.46 2 Unknown [id number] 2.16.840.1.866958.3.579.2.46 2 Unknown [id number] 2.16.840.1.393279.3.579.2.46 2 Unknown [id number] 2.16.840.1.800203.3.579.2.46 2 Unknown [id number] 2.16.840.1.415318.3.579.2.46 2 Unknown [id number] 2.16.840.1.021443.3.579.2.46 2 Unknown [id number] 2.16.840.1.178460.3.579.2.46 2 Unknown [id number] 2.16.840.1.299127.3.579.2.46 2 Unknown [id number] 2.16.840.1.867966.3.579.2.46 2 Unknown [id number] 2.16.840.1.257502.3.579.2.46 2 Unknown [id number] 2.16.840.1.489536.3.579.2.46 2 Unknown [id number] 2.16.840.1.208006.3.579.2.46 2 Unknown [id number] 2.16.840.1.668204.3.579.2.46 2 Worker's Compensation Social History Date Type Detail Facility Start: 07-18-2019 End: 09-19-2024 Tobacco smoking status MAIS Smokes tobacco daily [facility] Work Phone: End: 04-13-2015 History of tobacco use Smoker [facility] Work Phone: Start: 07-18-2019 End: 10-02-2024 Tobacco use and exposure Smokeless tobacco non-user [facility] Work Phone: Start: 10-10-2021 End: 08-20-2024 Alcohol intake Current drinker of alcohol (finding) [facility] Start: 07-18-2021 History SDOH Alcohol Frequency 4 [facility] Start: 07-18-2021 End: 07-13-2022 History SDOH Alcohol Std Drinks 2 [facility] Start: 07-18-2021 End: 07-13-2022 History SDOH Social Connections Scientologist 1 [facility] Start: 07-18-2021 End: 07-13-2022 History SDOH Social Connections Living 7 [facility] Start: 07-18-2021 End: 07-13-2022 History SDOH Stress 5 [facility] Start: 11-07-2019 Education 21 [facility] Start: 1985 Sex Assigned At Not on file [facility] Start: 09-30-2021 End: 10-10-2021 Exposure to SARS-CoV-2 (event) Yes [facility] Start: 02-10-2021 End: 03-29-2022 Exposure to SARS-CoV-2 (event) Not sure [facility] End: 04-13-2015 History of tobacco use Cigarette Smoker [facility] Work Phone: Start: 07-13-2022 History SDOH Alcohol Std Drinks 0 [facility] Start: 07-13-2022 History SDOH Physica l Activity MPS 3 [facility] Start: 07-12-2022 End: 01-28-2025 History of Social function [facility] Start: 07-12-2022 End: 01-28-2025 Social connection and isolation panel [facility] Do you belong to any clubs or organizations such as restorationist groups, unions, fraternal or athletic groups, or school groups? No [facility] Are you now , , , , never or living with a partner? Never [facility] How often to you hav e a drink containing alcohol? Never [facility] Start: 05-28-[address] inks containing alcohol do you have on a typical day? Patient does not drink [facility] How hard is it for y ou to pay for the very basics like food, housing, medical care, and heating Very hard [facility] Do you feel stress - tense, restless, nervous, or anxious, or unable to sleep at night because your mind is troubled all the time - these days [OSQ] Very much [facility] (I/We) worried wheth er (my/our) food would run out before (I/we) got money to buy more. Often true [facility] Are you now , , , , never or living with a partner? Living with partner [facility] How often to you hav e a drink containing alcohol? 2-4 times a month [facility] How many standard dr inks containing alcohol do you have on a typical day? 3 or 4 [facility] How often do you hav e 6 or more drinks on 1 occasion? Less than monthly [facility] How hard is it for y ou to pay for the very basics like food, housing, medical care, and heating Somewhat hard [facility] (I/We) worried wheth er (my/our) food would run out before (I/we) got money to buy more. Never true [facility] (I/We) worried wheth er (my/our) food would run out before (I/we) got money to buy more. Sometimes true [facility] Start: 09-19-2024 Tobacco Comment Pateint only u ses the Vape She doesnt smoke nicotine [facility] Start: 10-02-2024 Tobacco smoking stat us NHIS Ex-smoker [facility] Start: 10-02-2024 End: 03-01-2025 Alcoholic beverage intake Ex-drinker (finding) [facility] Start: 10-02-2024 Tobacco Comment Pateint only u ses the Vape She doesnt smoke nicotine Patient quit smoking 08/20/2024 [facility] Medical Equipment Procedure Code Equipment Code Equipment Origin al Text Equipment Identifier Dates Catheter Sampson Surecuff 9.6fr 3.2mm 1.6mm 2 Branch 90cm Central Venous 1 - [id number] Start: 08-26-2024 Tray Powerpicc 5 fr .018in Nitinol 70cm Catheter 2 Lumen Guidewire - [id number] Start: 12-08-2024 Goals Date Patient Goal Desired Activity /State Personal health goal Personal health goal Functional Status Date Assessment Result Facility 12-21-2024 Are you deaf, or do you have serious difficulty hearing No 12/21/2024 2:10 PM EDT Morena Toth, NATHANAEL No [facility] 12-21-2024 Are you blind, or do you have serious difficulty seeing, even when wearing glasses No 12/21/2024 2:10 PM EDT Morena Toth, NATHANAEL No [facility] 12-21-2024 Do you have serious difficulty walking or climbing stairs No 12/21/2024 2:10 PM EDT Morena Toth, NATAHNAEL No [facility] 12-21-2024 Do you have difficul ty dressing or bathing No 12/21/2024 2:10 PM EDT Morena Toth, NATHANAEL No [facility] 12-21-2024 Because of a physica l, mental, or emotional condition, do you have difficulty doing errands alone such as visiting a physician's office or shopping No 12/21/2024 2:10 PM EDT Morena Toth, NATHANAEL No [facility] 10-26-2024 Are you deaf, or do you have serious difficulty hearing No 10/26/2024 4:40 PM EDT Lyla Sullivan, NATHANAEL No [facility] 10-26-2024 Are you blind, or do you have serious difficulty seeing, even when wearing glasses No 10/26/2024 4:40 PM EDT Lyla Sullivan, NATHANAEL No [facility] 10-26-2024 Do you have serious difficulty walking or climbing stairs No 10/26/2024 4:40 PM EDT Lyla Sullivan, NATHANAEL No [facility] 10-26-2024 Do you have difficul ty dressing or bathing No 10/26/2024 4:40 PM EDT Lyla Sullivan, NATHANAEL No [facility] 10-26-2024 Because of a physica l, mental, or emotional condition, do you have difficulty doing errands alone such as visiting a physician's office or shopping No 10/26/2024 4:40 PM EDT Lyla Sullivan, RN No [facility] 09-03-2024 Are you deaf, or do you have serious difficulty hearing No 09/03/2024 8:13 PM Annabella Ramachandran RN No [facility] 09-03-2024 Are you blind, or do you have serious difficulty seeing, even when wearing glasses No 09/03/2024 8:13 PM Annabella Ramachandran, NATHANAEL No [facility] 09-03-2024 Do you have serious difficulty walking or climbing stairs No 09/03/2024 8:13 PM Annabella Ramachandran RN No [facility] 09-03-2024 Do you have difficul ty dressing or bathing No 09/03/2024 8:13 PM Annabella Ramachandran RN No [facility] 09-03-2024 Because of a physica l, mental, or emotional condition, do you have difficulty doing errands alone such as visiting a physician's office or shopping Yes 09/03/2024 8:13 PM Annabella Ramachandran RN Yes [facility] 01-28-2015 Are you deaf, or do you have serious difficulty hearing No 01/28/2015 11:33 AM Jennifer Davis MA No [facility] 01-28-2015 Are you blind, or do you have serious difficulty seeing, even when wearing glasses No 01/28/2015 11:33 AM Jennifer Davis MA No [facility] 01-28-2015 Do you have serious difficulty walking or climbing stairs No 01/28/2015 11:33 AM Jennifer Davis MA No [facility] 01-28-2015 Do you have difficul ty dressing or bathing No 01/28/2015 11:33 AM Jennifer Davis MA No [facility] 01-28-2015 Because of a physica l, mental, or emotional condition, do you have difficulty doing errands alone such as visiting a physician's office or shopping No 01/28/2015 11:33 AM Jennifer Davis MA No [facility] Mental Status Date Assessment Result Facility 12-21-2024 Because of a physica l, mental, or emotional condition, do you have serious difficulty concentrating, remembering, or making decisions No 12/21/2024 2:10 PM EDT Morena Toth, NATHANAEL No [facility] 10-26-2024 Because of a physica l, mental, or emotional condition, do you have serious difficulty concentrating, remembering, or making decisions No 10/26/2024 4:40 PM EDT Lyla Sullivan, NATHANAEL No [facility] 09-03-2024 Because of a physica l, mental, or emotional condition, do you have serious difficulty concentrating, remembering, or making decisions No 09/03/2024 8:13 PM EDT Annabella Jarquin, NATHANAEL No [facility] 01-28-2015 Because of a physica l, mental, or emotional condition, do you have serious difficulty concentrating, remembering, or making decisions Yes 01/28/2015 11:33 AM EDT Jennifer Hilliard MA Yes [facility] Clinical Notes 11-22-2017 to 05-02-2025 Addendum Note - David Nj [facility] - 03/11/2025 2:16 PM EDTAddendum Note - David Nj [facility] 03/11/2025 2:16 PM EDTTelephone Encounter - David Nj [facility] 03/11/2025 2:14 PM EDT Note Date & Type Note Facility 05-02-2025 Note HNO ID: [id number] Author: KARTHIK MALDONADO APRN.DIRECTOR OF CLOUD SERVICES Service: ? Author Type: Nurse Practitioner Type: Progress Notes Filed: 05/02/2025 12:36 Note Text: [facility] Today's Date: 05/02/2025 Name: Daly Evans [...] Percocet prescribed by her nurse practitioner at [facility], which she reports helps significantly. She is [...] She is currently seeing a doctor at [facility] for her knee pain and is [...] and validated on 05/02/2025 by Karthik Maldonado APRN.DIRECTOR OF CLOUD SERVICES All prescriptions have been APPROPRIATELY filled. No suspicious activity was identified. (more content not included)... [facility] 05-02-2025 Note HNO ID: [id number] Author: DALY RODRIGUEZ LPN Service: ? Author [...] on: 03/11/2025 02:16 PM Modules accepted: Orders [facility] 03-11-2025 Miscellaneous Notes Addended by: DAVID NJ on: 03/11/2025 02:16 PM Modules accepted: Orders Spoke with patient and advised can stop warfarin and switch to Eliquis if INR <2.0. Recommended patient have more updated INR drawn as last INR from 02/28/25 (1.4) but patient has been taking warfarin since that time. David Nj, PharmD, [facility] [phone] Spoke with patient who advised she has a starter Eliquis package but needs advise on how to transition to Eliquis. Pharmacy Anticoagulation Clinic will disregard referral at this time. Will route to pharmacist and DIRECTOR OF CLOUD SERVICES to advise patient on transition from warfarin to Eliquis. Janelle Greenberg RN [facility] Patient may not be switching to warfarin. Noted in Mychart message Eliquis has been approved by insurance. Janelle Greenberg RN [facility] Call to patient's home/cell telephone number; left a voicemail message with request for the patient to return call to PAC at [phone] Option #2. Mychart message sent. Janelle Greenberg RN Pharmacy, Anticoagulation Clinic A call was placed to patient's home and cell telephone number. A voicemail message was left with request for patient to return call to Pharmacy Anticoagulation [facility] at [phone] Option #2 to discuss new referral to PAC. Janelle Greenberg RN Pharmacy, Anticoagulation Clinic documented in this encounter [facility] 03-11-2025 Telephone encounter Note Spoke with patient and advised can stop warfarin and switch to Eliquis if INR <2.0. Recommended patient have more updated INR drawn as last INR from 02/28/25 (1.4) but patient has been taking warfarin since that time. David Nj PharmD, [facility] [phone] [facility] 03-11-2025 Telephone encounter Note Spoke with patient who advised she has a starter Eliquis package but needs advise on how to transition to Eliquis. Pharmacy Anticoagulation Clinic will disregard referral at this time. Will route to pharmacist and DIRECTOR OF CLOUD SERVICES to advise patient on transition from warfarin to Eliquis. Janelle Greenberg RN Pharmacy [facility] 03-08-2025 Telephone encounter Note Patient may not be switching to warfarin. Noted in Mychart message Eliquis has been approved by insurance. Janelle Greenberg RN Pharmacy [facility]tico[facility] 03-08-2025 Telephone encounter Note The following approved [...] was identified. 03/08/2025 by Xochilt Gaston CNP. [facility] 03-08-2025 Miscellaneous Notes The following approved medication [...] a hold of me, my number is [phone]. Thanks! Laura documented in this encounter [facility] 03-07-2025 Telephone encounter Note Called Pt and [...] Ritter RN March 07, 2025 7:38 PM [facility] 03-07-2025 Telephone encounter Note Please confirm her gabapentin dose, I'm unsure exactly what it is when looking at her MAR. Then I'm happy to send this in for her. Xochilt Gaston APRN.JUANY PDMP website checked and validated. All prescriptions have been APPROPRIATELY filled. No suspicious activity was identified. 03/07/2025 by Xochilt Gaston CNP. [facility] 03-06-2025 Telephone encounter Note I am out of gabapentin, and was hoping to get a refill before the weekend. It helps my wound on my left heel, and my stomach. If you need to get a hold of me, my number is [phone]. Thanks! Laura T [facility] Work Phone: 03-06-2025 Telephone encounter Note Call to patient's home/cell telephone number; left a voicemail message with request for the patient to return call to PAC at [phone] Option #2. Mychart message sent. Janelle Greenberg RN Pharmacy, Anticoagulation Clinic [facility] 03-05-2025 Telephone encounter Note Message on phone and MC left with appointment info. Fabienne Mo LPN T [facility] 03-05-2025 Miscellaneous Notes Message on phone and MC left with appointment info. Fabienne Mo LPN documented in this encounter [facility] 03-01-2025 History of Present illness Narrative 03/01/2025 Recording using Narrative software for draft documentation of the visit was discussed with the patient/authorized human resources representative; all questions welcomed and answered. Patient/authorized human resources representative agreed to proceed HPI: The patient [...] PAST MEDICAL HISTORY Diagnosis Date Attempted suicide ([facility]) polysubstance Bipolar depression ([facility]) [facility] Gestational diabetes mellitus in ([facility]) Impaired fasting blood sugar 06/2015 a1c 5.7% [...] Xochilt Gaston APRN.CNP documented in this encounter [facility] 03-01-2025 Telephone encounter Note A call was placed to patient's home and cell telephone number. A voicemail message was left with request for patient to return call to Pharmacy Anticoagulation Clinic at [phone] Option #2 to discuss new referral to PAC. Janelle Greenberg RN Pharmacy, Anticoagulation Clinic [facility] 03-01-2025 Instructions Xochilt Gaston APRN.CNP - 03/01/2025 11:13 AM EDT Increase your potassium pills to 3 a day and we'll recheck your level next 03/06 Increase your Coumadin (warfarin) to the 3mg daily, we'll recheck your next level 03/06 We'll get you set up with the Coumadin clinic documented in this encounter [facility] 03-01-2025 Telephone encounter Note Call placed to [...] is same weight as last weight in [facility]. HPN signed off due to [...] Abs Lymph 1.00 - 4.00 k/uL 2.31 [place]% % 7.6 Abs [place] <0.87 k/uL 0.58 Eosin% % 2.0 Abs [...] (H) High (L) Low Chance Florentino RN [facility] 03-01-2025 Miscellaneous Notes Call placed to Daly, [...] is same weight as last weight in [facility]. HPN signed off due to [...] Abs Lymph 1.00 - 4.00 k/uL 2.31 [place]% % 7.6 Abs [place] <0.87 k/uL 0.58 Eosin% % 2.0 Abs [...] Chance Florentino RN documented in this encounter [facility] 03-01-2025 Telephone encounter Note Addressed in phone encounter Chance Florentino RN [facility] 03-01-2025 Miscellaneous Notes Addressed in phone encounter Chance Florentino RN documented in this encounter [facility] 02-26-2025 Instructions Clayton Granados APRN.DIRECTOR OF CLOUD SERVICES - 02/26/2025 4:04 PM EDT - Continue [...] (potassium, magnesium, sodium, kidney function, CBC) to Libboo so they can be reviewed. - If your uploaded results aren t available or show persistent abnormalities, complete the additional labs already ordered by Ed Saxena. - After reviewing your labs, you will receive a Libboo message with next steps--this may include increasing Lexapro back to 40 mg or other recommendations. For those experiencing a suicidal crisis: --call the National Suicide Prevention Lifeline at 988 (335.987.5176) --text the Crisis Text Line (text HOME to 059965) --call 911 and let them know you are having a mental health crisis or go to your nearest Emergency Room for stabilization. --You can also call Mobile Crisis at [phone]. -- You may call the department appointment line at [phone] to schedule your appointment. -- Please call my nurse at [phone] or send me a message in Libboo with any questions or concerns between appointments. documented in this encounter [facility] 02-26-2025 History of Present illness Narrative Images [...] visit. Either the patient or their legal human resources representative has been informed of the risks and benefits of -- and alternatives to -- treatment through a remote evaluation and consents to proceed with the evaluation remotely. Recording using Narrative software for draft documentation of the visit was discussed with the patient/authorized human resources representative; all questions welcomed and answered. Patient/authorized human resources representative agreed to proceed CC: Outpatient follow-up [...] suicide (HCC) polysubstance Bipolar depression (HCC) [facility] Gestational diabetes mellitus [...] to upload recent hospital lab results to [facility] for review. - Zyprexa refills sent. [...] to upload recent hospital lab results to Libboo for review. - Will hold off on [...] TIME: 3:33 PM documented in this encounter [facility] 02-26-2025 History of Present illness Narrative [facility] SAFE-T SERVICE DATE: 02/26/2025 SERVICE TIME: 10:00am Additional Comments: Pt appears on [facility] Social Work Pro Report with a PHQ [...] TIME: 10:02 AM documented in this encounter [facility] 02-23-2025 Note [facility] 02-22-2025 Telephone encounter Note Study Title: IRB: 23-738 Caring for OutPatiEnts after Acute Kidney Injury (COPE-JONATAN) trial PI: Dr. Juan Manuel Byrd Date: 02/22/2025 Visit #: Week 9 post Index hospitalization I called the patient to follow up on her participation in the COPE-JONATAN study. Patient is currently hospitalized at [facility] Phone conversation and chart review completed for [...] post-index hospitalization [x] PCP - 02/28/2025 at [facility] [] Other provider Next Nurse Navigator phone follow-up call due 03/08/2025 for the three month follow-up visit. Patient verbalized understanding. Amy Colvin [facility] February 22, 2025 3:20 PM Addendum created on 02/22/2025 for source document clarification. Amy Colvin [facility] February 22, 2025 4:35 PM [facility] 02-22-2025 Miscellaneous Notes Study Title: IRB: 23-738 Caring for OutPatiEnts after Acute Kidney Injury (COPE-JONATAN) trial PI: Dr. Juan Manuel Byrd Date: 02/22/2025 Visit #: Week 9 post Index hospitalization I called the patient to follow up on her participation in the COPE-JONATAN study. Patient is currently hospitalized at [facility] Phone conversation and chart review completed for [...] post-index hospitalization [x] PCP - 02/28/2025 at [facility] [] Other provider Next Nurse Navigator phone follow-up call due 03/08/2025 for the three month follow-up visit. Patient verbalized understanding. Amy Colvin [facility] February 22, 2025 3:20 PM Addendum created on 02/22/2025 for source document clarification. Amy Rasmussen February 22, 2025 4:35 PM documented in this encounter [facility] 02-11-2025 Telephone encounter Note Please see pt message and advise. Once complete, send to information below from pt and update via [employer]. Lauren Hull MA Pt message: I need a doctor's referral for a physical capacity assessment, for a disability claim. I can go to [facility] ([phone]) or [facility] in [place] (fax [phone]). I greatly appreciate it. Daly [facility] 02-11-2025 Miscellaneous Notes Please see pt message and advise. Once complete, send to information below from pt and update via [employer]. Lauren Hull MA Pt message: I need a doctor's referral for a physical capacity assessment, for a disability claim. I can go to [facility] ([phone]) or [facility] in [place] (fax [phone]). I greatly appreciate it. Daly documented in this encounter [facility] 02-11-2025 Telephone encounter Note Turned into TE and routed to PCP to advise. Lauren Hull MA [facility] 02-11-2025 Miscellaneous Notes Turned into TE and routed to PCP to advise. Lauren Hull MA documented in this encounter [facility] 02-08-2025 Telephone encounter Note Study Title: IRB: 23-738 Caring for OutPatiEnts after Acute Kidney Injury (COPE-JONATAN) trial PI: Dr. Juan Manuel Byrd Date: 02/08/2025 Visit #: Week 7 post Index hospitalization I called the patient to follow up on her participation in the COPE-JONATAN study. msg left to return my call. Chart review completed for the following: [facility]A - device use history not recorded [...] in 2-3 days, pending return call from [facility]. Amy Rasmussen February 08, 2025 4:22 PM [facility] 02-08-2025 Miscellaneous Notes Study Title: IRB: 23-738 Caring for OutPatiEnts after Acute Kidney Injury (COPE-JONATAN) trial PI: Dr. Juan Manuel Byrd Date: 02/08/2025 Visit #: Week 7 post Index hospitalization I called the patient to follow up on her participation in the COPE-JONATAN study. left to return my call. Chart review completed for the following: Access patients data on [employer] dashboard:N/A - device use history not recorded [...] in 2-3 days, pending return call from [facility]. Amy Rasmussen February 08, 2025 4:22 PM documented in this encounter [facility] 02-07-2025 Telephone encounter Note Prescription for Flagyl sent to local pharmacy. Sandra Castle PA-C [facility] 02-07-2025 Miscellaneous Notes Prescription for Flagyl [...] via my chart. documented in this encounter [facility] 02-07-2025 Telephone encounter Note I called [...] for signature. Pt notified via my chart. [facility] 01-28-2025 Instructions Ed Saxena APRN.JUANY - 01/28/2025 2:35 PM EDT Get your labs on your way out today documented in this encounter [facility] 01-28-2025 History of Present illness Narrative [...] suicide (HCC) polysubstance Bipolar depression (HCC) [facility] Gestational diabetes mellitus in (HCC) [...] needing to have her picc line removed. DIGITAL MEDIA SPECIALIST calling wound center to see if they are comfortable doing so. Labs being drawn today. Discussed treatment plan and patient voices understanding. Patient's questions answered appropriately. Medications and potential side effects were discussed and patient voices understanding. Return to the office as scheduled or as needed for worsening/no improvement. Ed Saxena APRN.DIRECTOR OF CLOUD SERVICES Recording using Narrative software for draft documentation of the visit was discussed with the patient/authorized human resources representative; all questions welcomed and answered. Patient/authorized human resources representative agreed to proceed documented in this encounter [facility] 01-28-2025 Telephone encounter Note Study Title: [...] Jigna Montalvo January 28, 2025 12:18 PM [facility] 01-28-2025 Miscellaneous Notes Study Title: IRB: [...] 2025 12:18 PM documented in this encounter [facility] 01-24-2025 Telephone encounter Note Home Nutrition [...] to schedule removal - HNS episode closed Bsii Seo RD, DEON, CNSC [facility] Work Phone: 01-24-2025 Miscellaneous Notes Home Nutrition Support Service Dr. Ealine responded and said he agrees we should [...] RD, LD, CNSC documented in this encounter [facility] 01-24-2025 Telephone encounter Note Called spoke with pt gave information provided. Pt voices understanding. [facility] 01-24-2025 Miscellaneous Notes Called spoke with pt gave information provided. Pt voices understanding. Images from the original note were not included. Ed Saxena APRN.JUANY to [facility] 01/24/25 8:59 AM Result Note Call [...] went over results, notes from Ed Saxena BISQUE TILE BURNER with understanding. documented in this encounter [facility] 01-24-2025 Telephone encounter Note Images from the original note were not included. Ed Saxena APRN.DIRECTOR OF CLOUD SERVICES to [facility] 01/24/25 8:59 AM Result Note [...] went over results, notes from Ed Saxena BISQUE TILE BURNER with understanding. [facility] 01-23-2025 Telephone encounter Note Agree that we should not manage in the future. Very sad for her. Farzaneh Elaine MD January 23, 2025 [facility] Work Phone: 01-23-2025 Miscellaneous Notes Agree that we should not manage in the future. Very sad for her. Farzaneh Elaine MD January 23, 2025 Home Nutrition Support Service Received email from [facility] that patient is refusing delivery/all future PN [...] non-compliance letter to patient and email to [place] once confirmed with Dr. Montoya and Dr. Elaine that HNS would not manage in future if patient were to need PN given severe non-compliance and complete self-weaning of PN. Reccs: - Sign off orders sent to [facility] as patient self-weaned her PN completely and is refusing all PN deliveries - Order for PICC removal pended in [facility] and routed to Dr. Montoya for signature - Encounter routed to Dr. Montoya and Dr. Elaine to confirm that HNS would not manage in the future should patient need PN again given severe non-compliance and complete self-weaning of PN. Also routed to Transplant as an FYI/update on PN Bisi Seo RD, LD, CNSC documented in this encounter [facility] 01-23-2025 Telephone encounter Note Home Nutrition Support Service Received email from [facility] that patient is refusing delivery/all future PN [...] Reccs: - Sign off orders sent to [facility] as patient self-weaned her PN completely and is refusing all PN deliveries - Order for PICC removal pended in [facility] and routed to Dr. Montoya for signature - Encounter routed to Dr. Montoya and Dr. Elaine to confirm that HNS would not manage in the future should patient need PN again given severe non-compliance and complete self-weaning of PN. Also routed to Transplant as an FYI/update on PN Bisi Seo RD, LD, CNSC [facility] Work Phone: 01-17-2025 Telephone encounter Note Home Nutrition Support Service Patient called office and stated she needs to stop TPN because she no longer has room in her refrigerator, and because Dr. Devine said she needs to stop. Reviewed [facility] encounters. Last encounter with Dr. [...] last week Bisi Seo RD, LD, CNSC [facility] Work Phone: 01-17-2025 Miscellaneous Notes Home [...] Dr. Devine that she needs to discontinue. [phone] documented in this encounter [facility] 01-17-2025 Telephone encounter Note Pt called to discuss weaning TPN. Has been told by Dr. Devine that she needs to discontinue. [phone] [facility] 01-14-2025 Telephone encounter Note Call placed [...] get it drawn tomorrow. Ed Saxena APRN.JUANY [place] [id number] Miscellaneous Notes Call placed to Daly about [...] Ed Saxena APRN.JUANY documented in this encounter [facility] 01-11-2025 Instructions Clayton Granados APRN.JUANY - [...] This prescription has been sent to your [facility] pharmacy in [place]. - If you experience any gastrointestinal side [...] --call the National Suicide Prevention Lifeline at 482 (497-540-5126) --text the Crisis Text Line (text HOME to 783661) --call 911 and let them know you are having a mental health crisis or go to your nearest Emergency Room for stabilization. --You can also call Mobile Crisis at [phone]. -- You may call the department appointment line at [phone] to schedule your appointment. -- Please call my nurse at [phone] or send me a message in Libboo with any questions or concerns between appointments. documented in this encounter [facility] 01-11-2025 History of Present illness Narrative [...] visit. Either the patient or their legal human resources representative has been informed of the risks and benefits of -- and alternatives to -- treatment through a remote evaluation and consents to proceed with the evaluation remotely. Recording using ambient [employer] software for draft documentation of the visit was discussed with the patient/authorized human resources representative; all questions welcomed and answered. Patient/authorized human resources representative agreed to proceed CC: Outpatient follow-up [...] 20 mg during her hospital stay at [facility], reportedly due to concerns about gut [...] TIME: 3:12 PM documented in this encounter [facility] 01-10-2025 Ed Romano APRN.JUANY - 01/10/2025 2:51 [...] in next week documented in this encounter [facility] 01-10-2025 History of Present illness Narrative [...] After all this she was discharged to [facility] around 09/03/24. Then 10/09 she had an accidental overdose of methadone at [facility], started having high output from her stoma and dehydration and was readmitted in October for that. Then readmitted again later that month for JONAATN and possible PE after stopping her blood [...] during stay in November Staple Removal: - Carlotta and sutures in place from recent abdominal [...] which included preparing to see the patient, [id number] patient care, obtaining and/or reviewing separately obtained [...] as needed for worsening/no improvement. Ed Saxena APRN.DIRECTOR OF CLOUD SERVICES Recording using Narrative software for draft documentation of the visit was discussed with the patient/authorized human resources representative; all questions welcomed and answered. Patient/authorized human resources representative agreed to proceed documented in this encounter [facility] 01-10-2025 Telephone encounter Note Home Nutrition [...] week to include CRP Mayra Alexandre RD [facility] 01-10-2025 Miscellaneous Notes Home Nutrition Support [...] gone to local ED not viewable in [facility]/Care everywhere. No answer, LVM. Rec: [...] to the ED for repletion. Noted that [facility] has not been able to get ahold of patient since discharge, and these labs are overdue from 12/31. Discussed this w/ patient and she agreed to call [facility] back tomorrow so we can discuss overall plan/ New Patient Week 1. Recs: - Await ED outcome Mayra Alexandre RD documented in this encounter [facility] 01-10-2025 Telephone encounter Note Home Nutrition Support Service Call to pt to follow up. ED visit not seen in [facility] though may have gone to local ED not viewable in [facility]/Care everywhere. No answer, LVM. Rec: await return call Satish Haider RD, LD, CNSC [facility] Work Phone: 01-09-2025 Telephone encounter Note [...] Provider Follow-up appointments: [x] COPE Study Team, [facility] follow-up due between 01/13 - 01/27/2025 [] PCP [] Other provider Next Nurse Navigator phone follow-up call due at 5-weeks post-hospital discharge, on or before 01/25/2025. Patient verbalized understanding. Amy Rasmussen January 09, 2025 11:16 AM [facility] 01-09-2025 Miscellaneous Notes Study Title: IRB: [id number] Caring for OutPatiEnts after Acute Kidney Injury (COPE-JONATAN) trial PI: Dr. Juan Manuel Byrd Date: 01/09/2025 Visit #: Week 3 post Index hospitalization I called the patient to follow up on her participation in the COPE-JONATAN study. Phone conversation and chart review completed for the following: Access patients data on alaTest dashboard: N/A -[employer] devices not in use. [...] Provider Follow-up appointments: [x] COPE Study Team, [facility] follow-up due between 01/13 - 01/27/2025 [] PCP [] Other provider Next Nurse Navigator phone follow-up call due at 5-weeks post-hospital discharge, on or before 01/25/2025. Patient verbalized understanding. Amy Rasmussen January 09, 2025 11:16 AM documented in this encounter [facility] 01-08-2025 Telephone encounter Note Home Nutrition [...] to the ED for repletion. Noted that [facility] has not been able to get ahold of patient since discharge, and these labs are overdue from 12/31. Discussed this w/ patient and she agreed to call [facility] back tomorrow so we can discuss overall plan/ New Patient Week 1. Recs: - Await ED outcome Mayra Alexandre RD [facility] 01-07-2025 Telephone encounter Note Record ID: [id number] Patient name: Daly Evans Date: January 07, [...] was moved to different rooms five times [facility] 01-07-2025 Miscellaneous Notes Record ID: [id number] Patient name: Daly Evans Date: January 07, [...] rooms five times documented in this encounter [facility] 01-04-2025 Telephone encounter Note Unable To Reach Patient Patient's name appears on the [facility] [employer] report for a PHQ-9 score of 14 and +9. Second attempt:SW called Patient to follow up and left a VM requesting a call back. MONIKA Dhillon [facility] 01-04-2025 Miscellaneous Notes Unable To Reach Patient Patient's name appears on the [employer] report for a PHQ-9 score of 14 and +9. Second attempt:SW called Patient to follow up and left a VM requesting a call back. MONIKA Dhillon documented in this encounter [facility] 01-03-2025 Telephone encounter Note Unable To Reach Patient Patient's name appears on the [employer] report for a PHQ-9 score of 14 and +9. SW called Patient to follow up and left a VM requesting a call back. [employer] SEVERITY RATING SCALE Unable to reach Patient to assess. MONIKA Dhillon [facility] 01-03-2025 Miscellaneous Notes Unable To Reach Patient Patient's name appears on the [employer] report for a PHQ-9 score of 14 and +9. SW called Patient to follow up and left a VM requesting a call back. [employer] SEVERITY RATING SCALE Unable to reach Patient to assess. MONIKA Dhillon documented in this encounter [facility] 01-02-2025 Telephone encounter Note Transitional Care Management (TCM) [facility] Monitoring [facility] Provider Action / FYI: N/a SUMMARY: Outreach type: INITIAL OUTREACH Discharge Network Status: In-Network Discharge Source of Patient: [facility] TCM Discharge Report Patient discharged from [facility] on 12/21/2024. Admitted for Lactic acidosis. Contact made with patient: No, for Follow-up - end outreach and close encounter. Polly Blanton January 02, 2025 2:24 PM [facility] 01-02-2025 Miscellaneous Notes Transitional Care Management (TCM) [facility] Monitoring Program Provider Action / FYI: N/a SUMMARY: Outreach type: INITIAL OUTREACH Discharge Network Status: In-Network Discharge Source of Patient: [facility] TCM Discharge Report Patient discharged from [facility] on 12/21/2024. Admitted for Lactic acidosis. Contact made with patient: No, for Follow-up - end outreach and close encounter. Polly Blanton January 02, 2025 2:24 PM documented in this encounter [facility] 01-02-2025 Telephone encounter Note Study Title: [...] Jigna Montalvo January 02, 2025 11:04 AM [facility] 01-02-2025 Miscellaneous Notes Study Title: IRB: [...] 2025 11:04 AM documented in this encounter [facility] 01-01-2025 Telephone encounter Note Transitional Care Management (TCM) [facility] Monitoring [facility] Provider Action / FYI: na SUMMARY: Outreach type: INITIAL OUTREACH Discharge Network Status: In-Network Discharge Source of Patient: [facility] TCM Discharge Report Patient discharged from [facility] on 12.21.24. Admitted for Lactic acidosis. . Contact made with patient: No - 2nd unsuccessful attempt - end outreach and close encounter. Sean De La Fuente January 01, 2025 10:37 AM [facility] 01-01-2025 Miscellaneous Notes Transitional Care Management (TCM) [facility] Provider Action / FYI: na SUMMARY: Outreach type: INITIAL OUTREACH Discharge Network Status: In-Network Discharge Source of Patient: [facility] TCM Discharge Report Patient discharged from [facility] on 12.21.24. Admitted for Lactic acidosis. . Contact made with patient: No - 2nd unsuccessful attempt - end outreach and close encounter. Sean De La Fuente January 01, 2025 10:37 AM documented in this encounter [facility] 12-31-2024 History of Present illness Narrative [...] a 39 year old single female from [place], [place] ([address], supportive father) with a history of bipolar disorder, severe panic attacks, polysubstance abuse (EtOH, marijuana - sober since at least Apr 2024), violent behavior under influence of EtOH (September 2021), smoking (quit Jul 2024), (2012), preDM, and lap maryellen (2018). She was transferred to [facility] 08/20/24 with a mural thrombus in [...] DC to SNF 09/03/24 and referred to [facility] for STEP + Gattex. 10/09/24 OSH Admission for accidental overdose of Methadone at SNF. 10/19/24 OSH Admission for high output stoma. Cdiff negative. Stool for GI panel in process. Remains off TPN. Electrolyte repletion underway. Initial JONATAN Cr >2 has resolved. High stoma output, but it is not [facility] at the jail. 11/18-11/05/24 OSH Admission for high output stoma [...] output stoma and dehydration Presented to the [facility] emergency room with concerns for dehydration [...] Omentectom. She was transferred back to [facility]: on STRAW BOSS, with NG tube, with pathak, on continued [...] and examined with Dr. Kirit Devine MD [facility] STAFF PHYSICIAN NOTE OF PERSONAL [...] lagos components of the note. PHYSICAL EXAM: [facility] 08/29/2024 General appearance: well appearing, [...] She has been eating [employer] yesterday and [employer] sausage, egg and cheese for breakfast. She [...] Castle PA-C 12/26/2024 documented in this encounter [facility] 12-31-2024 Note [facility] 12-25-2024 Telephone encounter Note Study Title: [...] call. Discussed care recommendations: Next appointment scheduled: [facility] 12-25-2024 Miscellaneous Notes Study Title: Caring [...] Next appointment scheduled: documented in this encounter [facility] 12-25-2024 Telephone encounter Note Transitional Care Management (TCM) [facility] Provider Action / FYI: N/A SUMMARY: Outreach type: INITIAL OUTREACH Discharge Network Status: In-Network Discharge Source of Patient: [facility] TCM Discharge Report Patient discharged from [facility] on 12/21/24. Admitted for Lactic acidosis. Contact made with patient: No - next outreach attempt will be on next business day. Suman Guevara RN December 25, 2024 2:27 PM [facility] 12-25-2024 Miscellaneous Notes Transitional Care Management (TCM) [facility] Provider Action / FYI: N/A SUMMARY: Outreach type: INITIAL OUTREACH Discharge Network Status: In-Network Discharge Source of Patient: [facility] TCM Discharge Report Patient discharged from [facility] on 12/21/24. Admitted for Lactic acidosis. Contact made with patient: No - next outreach attempt will be on next business day. Suman Guevara RN December 25, 2024 2:27 PM documented in this encounter [facility] 12-25-2024 Telephone encounter Note Pt was [...] on Sunday 12/31. Dr. Devine was updated. [facility] 12-25-2024 Miscellaneous Notes Pt was discharged [...] Devine was updated. documented in this encounter [facility] 12-25-2024 History of Present illness Narrative [...] at time of assessment? Home -Review study staff radiologist (B-38) and nurse navigator (B-41) documentation if [...] When in the Hospital: Presented to the [facility] emergency room with concerns for dehydration [...] Omentectom. She was transferred back to [facility]: on STRAW BOSS, with NG tube, with pathak, on continued [...] 12 hrs and begin bridging to warfarin [facility] has coumadin clinic but only takes referral from [facility] staff. escitalopram oxalate (LEXAPRO) 20 mg tablet [...] 2024 9:10 AM documented in this encounter [facility] 12-25-2024 Note [facility] 12-21-2024 Note [facility] 12-21-2024 Note [facility] 12-21-2024 Note [facility] 12-21-2024 History of Present illness Narrative [facility] Patient education Checklist. Patient Name: Daly Evans MR# [id number] Date: December 21, 2024 10:17 am Performance [...] Infusion Pharmacy Nurse documented in this encounter [facility] 12-21-2024 Note [facility] 12-20-2024 Note [facility] 12-20-2024 Note [facility] 12-20-2024 Note [facility] 12-20-2024 History of Present illness Narrative Study Title: Caring for OutPatiEnts aftr Acute Kidney Injury (COPE-JONATAN) Trial IRB:[id number] PI: Dr. Byrd Date: 12/20/2024 Visit: Pre Hospital Discharge Has study staff radiologist completed their assessment/guidance for post management: Pending B- Nurse navigator reviewed the plan of management with the study staff radiologist to determine: *Follow-up with clinical staff radiologist: pending *Follow-up with PCP: Yes-scheduled *What are the targets for BP and volume (weight) management: -BP: 130/80 -Weight: Baseline -Specific management issues study staff radiologist is concerned about: Pending Informed the patient [...] on equipment: Yes Device serial number scale: [id number] Device serial number BP device: [id number] C-24 Labs Collected: blood: No urine: No Contact PCP: pending Next appointment scheduled: 2-3 day visit. Jigna Montalvo December 25, 2024 11:13 AM documented in this encounter [facility] 12-19-2024 Note [facility] 12-19-2024 Note [facility] 12-18-2024 Note [facility] 12-18-2024 Note [facility] 12-17-2024 Note [facility] 12-17-2024 Note [facility] 12-16-2024 Note [facility] 12-16-2024 Note [facility] 12-15-2024 Note [facility] 12-15-2024 Note [facility] 12-14-2024 Note [facility] 12-14-2024 Note [facility] 12-13-2024 Note [facility] 12-13-2024 Telephone encounter Note Message given to Sandra Castle PA-c, inpatient team. [facility] 12-13-2024 Miscellaneous Notes Message given to Sandra Castle PA-c, inpatient team. Ernst called concerning the status of the pt's surgery. Requesting a return call from the appeals coordinator. Please call Ernst at [phone]. Twila Vargas documented in this encounter [facility] 12-13-2024 Telephone encounter Note Ernst called concerning the status of the pt's surgery. Requesting a return call from the appeals coordinator. Please call Ernst at [phone]. Twila Vargas [facility] 12-13-2024 Note [facility] 12-12-2024 Note [facility] 12-12-2024 Note [facility] 12-12-2024 Note [facility] 12-12-2024 Note [facility] 12-11-2024 Note [facility] 12-10-2024 Note [facility] 12-09-2024 Note [facility] 12-09-2024 Note [facility] 12-08-2024 Note [facility] 12-07-2024 Note [facility] 12-07-2024 Note [facility] 12-07-2024 Note [facility] 12-06-2024 Note [facility] 12-06-2024 Note [facility] 12-05-2024 Note [facility] 11-28-2024 Telephone encounter Note I called [...] to the ED as we discussed yesterday. [facility] 11-28-2024 Miscellaneous Notes I called Ernst [...] requesting that Libia calls him back at [phone]. Ernst says that Daly is in the emergency room because she is having issues with her ostomy bag. Ernst says that Daly is sweating, dizzy, and in pain. documented in this encounter [facility] 11-28-2024 Telephone encounter Note Ernst (father) called in requesting that Libia calls him back at [phone]. Ernst says that Daly is in the emergency room because she is having issues with her ostomy bag. Ernst says that Daly is sweating, dizzy, and in pain. [facility] Work Phone: 11-27-2024 Telephone encounter Note I returned Daly's call. She was hospitalized again a few days ago. She was given IVF and electrolytes, and then discharged. She has had multiple local hospital admissions for dehydration, high stoma output, and electrolyte imbalance. She has not yet been evaluated by our team, and has decided to come to [facility] ED tomorrow for evaluation and possible admission to the medicine service for stabilization. I told her that I will inform Dr. Devine. I did reach out to Dr. Devine and shared the above. [facility] 11-27-2024 Miscellaneous Notes I returned Daly's call. She was hospitalized again a few days ago. She was given IVF and electrolytes, and then discharged. She has had multiple local hospital admissions for dehydration, high stoma output, and electrolyte imbalance. She has not yet been evaluated by our team, and has decided to come to [facility] ED tomorrow for evaluation and possible admission to the medicine service for stabilization. I told her that I will inform Dr. Devine. I did reach out to Dr. Devine and shared the above. The patient requests a call from Libia.. Gretchen Navarrete documented in this encounter [facility] 11-27-2024 Telephone encounter Note The patient requests a call from Libia.. Gretchen Navarrete [facility] 11-23-2024 Note [facility] 11-16-2024 Note [facility] 11-14-2024 Note [facility] 11-12-2024 Telephone encounter Note I called patient and left a voicemail for her and her father and explained that she should come to the [facility] ED if she is having N, V, high output, or dehydration so that we can evaluate her here and determine what is needed for optimization for surgery. I also explained that the physicians and the hospital she is evaluated at can request transfer to [facility]. [facility] 11-12-2024 Miscellaneous Notes I called patient and left a voicemail for her and her father and explained that she should come to the [facility] ED if she is having N, V, [...] back to reschedule documented in this encounter [facility] 11-12-2024 Telephone encounter Note Patient called in to cancel today's appointment because she going to the Emergency room now and she will call back to reschedule [facility] 11-06-2024 Telephone encounter Note Transitional Care Management (TCM) [facility] Monitoring [facility] Provider Action / FYI: na SUMMARY: Outreach type: INITIAL OUTREACH Discharge Network Status: In-Network Discharge Source of Patient: [facility] TCM Discharge Report Patient discharged from [facility] on 10.26.24. Admitted for Intractable diarrhea . Contact made with patient: No - next outreach attempt will be on next business day. Rico Minor November 06, 2024 4:23 PM [facility] 11-06-2024 Miscellaneous Notes Transitional Care Management (TCM) [facility] Provider Action / FYI: na SUMMARY: Outreach type: INITIAL OUTREACH Discharge Network Status: In-Network Discharge Source of Patient: [facility] TCM Discharge Report Patient discharged from [facility] on 10.26.24. Admitted for Intractable diarrhea . Contact made with patient: No - next outreach attempt will be on next business day. Rico Minor November 06, 2024 4:23 PM documented in this encounter [facility] 11-05-2024 Telephone encounter Note I called Daly and she was disharged from [facility] last week 10/30 to 11/05/24 for [...] TPN management CT chest w IV con [facility] 11-05-2024 Miscellaneous Notes I called Daly and she was disharged from [facility] last week 10/30 to 11/05/24 for [...] for this request documented in this encounter [facility] 11-05-2024 Telephone encounter Note Patient called in requesting an appointment with Dr. Devine can an order be put in for this request [facility] 11-05-2024 Note [facility] 10-30-2024 Telephone encounter Note Record ID: [id number] Patient name: Daly Evans Date: October 30, [...] since you first noticed them? -> Same [facility] 10-30-2024 Miscellaneous Notes Record ID: [id number] Patient name: Daly Evans Date: October 30, [...] them? -> Same documented in this encounter [facility] 10-26-2024 History of Present illness Narrative [...] attend because she is currently admitted to [facility] for diarrhea exacerbation associated with JONATAN, hyponatremia, and hypokalemia. She will be rescheduled. Daly Evans 10/26/2024 documented in this encounter [facility] 10-26-2024 Note HNO ID: [id number] Author: MORENA PALACIOS LSW Service: Care Management Author Type: Delicatessen Clerk Type: Care Mgt Progress Note Filed: 10/26/2024 12:47 Note Text: CARE MANAGEMENT PROGRESS NOTE SERVICE DATE: 10/26/2024 SERVICE TIME: 12:41 PM LOS: 7 days Chart reviewed. Pt admitted from [facility] for intractable diarrhea. She has an ostomy. [...] will discharge to her parents home at: [address], [place]. CHRISTY let Cornelius know this. SIGNATURE: CHANELL Stewart PATIENT NAME: Daly Evans DATE: October 26, 2024 TIME: 12:41 PM [facility] 10-25-2024 Note HNO ID: [id number] Author: WILLIS FINCH DO Service: Hospital Medicine [...] resection with ostomy Patient sent to an [facility] ED due to high output ostomy She had evidence of renal failure as well as multiple electrolyte abnormalities (see below) Gastroenterology is following C. diff negative Stool PCR negative Continue scheduled Imodium 4 mg TID Acute kidney injury Creatinine 2.8 in [facility] ED Likely secondary to GI losses Creatinine now normalized Hyponatremia Sodium 130 in [facility] ED Likely secondary to GI losses Sodium now 135 today Hypokalemia Potassium 3.3 in [facility] ED Likely secondary to GI losses Still 3.4 today Will again supplement Left foot discoloration, ?gangrene Left toes are black, per patient this began while she was at [facility] Chart review indicates she had bilateral lower extremity tibial thromboemboli and underwent thromboembolectomy of the anterior tibial, posterior tibial, and peroneal arteries Podiatry following X-rays obtained on 10/23 showed no evidence of osteomyelitis I spoke with Dr. Mccarthy yesterday, he has no immediate plans for surgical intervention th (more content not included)... [facility] 10-24-2024 Note HNO ID: [id number] Author: WILLIS FINCH DO Service: Hospital Medicine [...] resection with ostomy [facility] to high output ostomy She [...] this began while she was at [facility] Chart review indicates she had bilateral lower extremity tibial thromboemboli and underwent thromboembolectomy of the anterior tibial, posterior tibial, and peroneal arteries Podiatry following X-rays obtained yesterday showed no evidence of osteomyelitis I spoke with Dr. Mccarthy today, he has no immediate (more content not included)... [facility] 10-24-2024 Note HNO ID: [id number] Author: MORENA PALACIOS LSW Service: Care Management Author Type: Delicatessen Clerk Type: Care Mgt Progress Note Filed: 10/24/2024 12:21 Note Text: CARE MANAGEMENT PROGRESS NOTE SERVICE DATE: 10/24/2024 SERVICE TIME: 9:36 AM LOS: 5 days Chart reviewed. Pt admitted from [facility] for intractable diarrhea; she has an ostomy. GI consulted for high ostomy output, they signed off yesterday 10/23. Podiatry consulted for left foot discoloration/gangrene. DC plan is to return to [facility] for wound care; precert started today. Post acute checklist on chart, will need wheelchair transport. SIGNATURE: CHANELL Stewart PATIENT NAME: Daly Evans DATE: October 24, 2024 TIME: 9:36 AM [facility] 10-23-2024 Note HNO ID: [id number] Author: WILLIS FINCH DO Service: Hospital Medicine [...] resection with ostomy Patient sent to an [facility] ED due to high output ostomy She had evidence of renal failure as well as multiple electrolyte abnormalities (see below) Gastroenterology is following C. diff negative Stool PCR negative Continue scheduled Imodium, increase today to 4 mg TID Acute kidney injury Creatinine 2.8 in [facility] ED Likely secondary to GI losses Creatinine now normalized Hyponatremia Sodium 130 in [facility] ED Likely secondary to GI losses Sodium now 133 today Hypokalemia Potassium 3.3 in [facility] ED Likely secondary to GI losses Still 3.4 today Will again supplement Left foot discoloration, ?gangrene Left toes are black, per patient this began while she was at [facility] Chart review indicates she had bilateral lower extremity tibial thromboemboli and underwent thromboembolectomy of the anterior tibial, posterior tibial, and peroneal arteries Continue therapeutic Lovenox Podiatry now following X-rays obtained today showed no evidence of osteomyelitis Continue local wound care Chronic comorbidities Bipolar disorder Anxiety Hx of substance abuse SIGNATURE: Willis Finch, (more content not included)... [facility] 10-23-2024 Note HNO ID: [id number] Author: YOHANA MCCARTHY III, DPM Service: Podiatry Author Type: Physician Type: Progress Notes Filed: 10/23/2024 17:49 Note Text: Podiatry Progress Note: X-rays reviewed. No signs of fracture or osteomyelitis or soft tissue gas. Gangrene is dry and stable. Continue wound care. Will follow as outpatient. Yohana Mccarthy III, DPM FACFAS 5:48 PM [facility] 10-22-2024 Note HNO ID: [id number] Author: WILLIS FINCH DO Service: Hospital Medicine [...] resection with ostomy Patient sent to an [facility] ED due to high output ostomy She had evidence of renal failure as well as multiple electrolyte abnormalities (see below) Gastroenterology is following C. diff negative Stool PCR negative Scheduled Imodium started today (2 mg QID) Acute kidney injury Creatinine 2.8 in [facility] ED Likely secondary to GI losses Creatinine now normalized Will stop IV fluids Hyponatremia Sodium 130 in [facility] ED Likely secondary to GI losses Sodium now 136 today Stopping IV fluids Hypokalemia Potassium 3.3 in [facility] ED Likely secondary to GI losses Still 3.2 today Will again supplement Left foot discoloration, ?gangrene Left toes are black, per patient this began while she was at [facility] Chart review indicates she had bilateral lower extremity tibial thromboemboli and underwent thromboembolectomy of the anterior tibial, posterior tibial, and peroneal arteries Continue ther (more content not included)... [facility] 10-22-2024 Note HNO ID: [id number] Author: IWLLIS FINCH DO Service: Hospital Medicine Author Type: Physician Type: Progress Notes Filed: 10/22/2024 15:27 Note Text: Documentation Query Please clarify the diagnosis associated with the clinical indicators for this patient Provider Response: Hypokalemia supported by: Oral Supplement of Potassium chloride and IV Infusion of Potassium chloride This document will become part of the patient's medical record. [facility] 10-22-2024 Note HNO ID: [id number] Author: MORENA PALACIOS LSW Service: Care Management Author Type: Delicatessen Clerk Type: Care Mgt Initial Assessment Filed: 10/22/2024 12:51 Note Text: CARE MANAGEMENT: ASSESSMENT AND DISCHARGE PLAN SERVICE DATE: October 22, 2024 SERVICE TIME: 12:43 PM PCP: Fredrick Boland DO Primary Contact: Extended Emergency Contact Information Primary Emergency Contact: Ernst Evans Mobile Relation: Father Secondary Emergency Contact: Mary Evans [facility] Relation: Mother Admission Status: Inpatient Insurance Provider: CARLA MUÑOZ MEDICAID Discharge Planning requested by: Potential Transition Plans Advance Directives Current Living Arrangements and Support Lives with: Type of Residence: Support: Current Services/Equipment Discharge Planning Patient Goal(s): [place] of Choice Explained: Are you interested in [...] were you homeless or living in a longterm (including now)?: No Utilities In the past 12 months has the [employer], gas, oil, or water [employer] threatened to shut off services in your home?: No Post-Acute Discharge Plan: Chart reviewed. Pt admitted from [facility] for intractable diarrhea. She has an extensive medical history: Main [place]: 08/20/2024: Small bowel resection, Ileocecectomy with general surgery. 08/20/24: Bilateral below-knee popliteal cutdown, Thromboembolectomy of AT, PT and peroneal arteries. Primary repair of tibial arteriotomies. Bilateral lower extremity 4 compartment fasciotomies with vascular surgery. 08/22/2024: Second look laparotomy, loop-end jejunosotomy. 08/23/2024: BLE fasciotomy closure. She is currently having high ostomy output. GI consulted. Pt will return to [facility] at discharge. Will need auth to return; she was skilled for wound care. Will need transportation. SIGNATURE: CHANELL Stewart PATIENT NAME: Daly Evans DATE: October 22, 2024 TIME: 12:43 PM [facility] 10-21-2024 Note HNO ID: [id number] Author: WILLIS FINCH DO Service: Hospital Medicine [...] resection with ostomy Patient sent to an [facility] ED due to high output ostomy She had evidence of renal failure as well as multiple electrolyte abnormalities (see below) Gastroenterology is following C. diff negative Stool PCR collected, results pending Antimotility agent being deferred for now until infectious etiology is ruled out Acute kidney injury Creatinine 2.8 in [facility] ED Likely secondary to GI losses Continue IV fluids via lactated Ringer's at 150 cc/hour Creatinine now normalized Hyponatremia Sodium 130 in [facility] ED Likely secondary to GI losses Continue IV fluids as outlined above Sodium now 135 today Hypokalemia Potassium 3.3 in [facility] ED Likely secondary to GI losses Still 2.8 today Will supplement Chronic comorbidities Hx of DVT Bipolar disorder Anxiety Hx of substance abuse SIGNATURE: Willis Finch DO PATIENT NAME: Daly Evans DATE: October 21, 2024 TIME: 11:49 PM [facility] 10-21-2024 Note HNO ID: [id number] Author: TUNG JENNINGS MD Service: Gastroenterology Author [...] October 21, 2024 TIME: 12:09 PM PAGER: [facility] 10-20-2024 Note HNO ID: [id number] Author: WILLIS FINCH DO Service: Hospital Medicine [...] resection with ostomy Patient sent to an [facility] ED due to high output ostomy She had evidence of renal failure as well as multiple electrolyte abnormalities (see below) Gastroenterology is following Stool PCR ordered Antimotility agent being deferred for now until infectious etiology is ruled out Acute kidney injury Creatinine 2.8 in [facility] ED Likely secondary to GI losses Continue IV fluids via lactated Ringer's at 150 cc/hour Hyponatremia Sodium 130 in [facility] ED Likely secondary to GI losses Continue IV fluids as outlined above Hypokalemia Potassium 3.3 in [facility] ED Likely secondary to GI losses Will supplement Chronic comorbidities Hx of DVT Bipolar disorder Anxiety Hx of substance abuse SIGNATURE: Willis Finch DO PATIENT NAME: Daly Evans DATE: October 20, 2024 TIME: 4:15 PM [facility] 10-12-2024 Note HNO ID: [id number] Author: JAKE MORALES RN Service: Care Management Author Type: Registered Nurse Type: Care Mgt Progress Note Filed: 10/12/2024 12:02 Note Text: CARE MANAGEMENT DISCHARGE NOTE SERVICE DATE: October 12, 2024 SERVICE TIME: 11:57 AM Admission Date: 10/09/2024 LOS: 0 days Discharge Arrangement Pt to discharge to [facility] this date at 1200, father to transport pt. Services Arranged [facility]. Provider Name: Dr. Fredrick Boland Caregiver Assessment SNF staff. Transportation Arrangements This RN cancelled transportation setup as pt's father can now transport pt. Handoff Communication: Summary of care sent to PCP and GI. Additional Information: Pt to discharge to [facility] this date at 1200, father to transport pt. No precert or HENS form needed. Discharge packet completed and on chart. Shanta RN called report and placed AVS in discharge packet. This RN sent updates via [employer]. Pt, attending, RN, nurse discharge planner, and Niki from [facility] notified of and agreeable to discharge plan. LOC SNF. Case closed. Discharge Information Row Name Admission (Current) from 10/09/2024 in [facility] MED/SURG [facility] -- Phone# -- SIGNATURE: Jake Morales RN PATIENT NAME: Daly Evans DATE: October 12, 2024 TIME: 11:57 AM [facility] 10-12-2024 Note HNO ID: [id number] Author: SHANTA MMIS RN Service: Nursing Author Type: Registered Nurse Type: Nursing Progress Note Filed: 10/12/2024 10:30 Note Text: Report called to Raisa at [facility]. [facility] 10-11-2024 Note HNO ID: [id number] Author: JAKE MORALES RN Service: Care Management [...] for IV access. 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 Pt stated that discharge plan is to [...] before discharging. Current discharge plan [facility]. CM will follow for and assist with transitional discharge needs. Discharge packet on chart. PACF and transportation form completed. Pt will need transportation setup for discharge. Of note, pt admitted at [facility] main 08/20/24 until 09/03/24 for the [...] DATE: October 11, 2024 TIME: 2:19 PM [facility] 10-11-2024 Note HNO ID: [id number] Author: DIANDRA MARTINEZ MD Service: General Internal [...] Component Value Units Date/Time BACTERIAL CULTURE, URINE [[id number]] (Abnormal) Collected: 09/21/24914 Order Status: Completed Specimen: [...] Component Value Units Date/Time BACTERIAL CULTURE, URINE [[id number]] (Abnormal) Collected: 09/21/24914 Order Status: Completed Specimen: [...] Lovenox Hx acute (more content not included)... [facility] 10-10-2024 Note HNO ID: [id number] Author: DIANDRA MARTINEZ MD Service: General Internal [...] Component Value Units Date/Time BACTERIAL CULTURE, URINE [[id number]] (Abnormal) Collected: 09/21/24 0915 Order Status: Completed [...] Component Value Units Date/Time BACTERIAL CULTURE, URINE [[id number]] (Abnormal) Collected: 09/21/24 0915 Order Status: Completed [...] ordered Hypoglycemia protocol (more content not included)... [facility] 10-10-2024 Note HNO ID: [id number] Author: JAKE MORALES RN Service: Care Management Author Type: Registered Nurse Type: Care Mgt Initial Assessment Filed: 10/10/2024 14:33 Note Text: CARE MANAGEMENT: ASSESSMENT AND DISCHARGE PLAN SERVICE DATE: October 10, 2024 SERVICE TIME: 2:17 PM PCP: Fredrick Boland DO Primary Contact: Extended Emergency Contact Information Primary Emergency Contact: Ernst Evans Mobile Relation: Father Secondary Emergency Contact: Mary Evans [facility] Relation: Mother Admission Status: Observation Insurance Provider: CARLA MUÑOZ MEDICAID Discharge Planning requested by: Per Department Practice Potential Transition Plans To Be Determined Advance Directives Current Advance Directive: None Current Living Arrangements and Support Lives with: (At [facility].) Type of Residence: [facility] Does the patient have to climb stairs at home?: No Care Facility Name: [facility]. Support: Parent, Family members How do you manage to accomplish the following: Independent: Ambulation, Bathe/Shower, Dress, Going to the bathroom Dependent: Meals/Meal Prep, Medication Management, Transportation to appointments/community Current Services/Equipment Current Post-Acute Service(s): None Discharge Planning Patient Goal(s): General wellness [place] of Choice Explained: Are you interested in bedside delivery of your medications? 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 Pt stated that discharge plan is to return to SNF, this RN requested that [facility] send return referral. Pt denies use [...] transportation setup. Of note, pt admitted at [facility] main 08/20/24 until 09/03/24 for the [...] were you homeless or living in a longterm (including now)?: No Utilities In the past 12 months has the [employer], gas, oil, or water [employer] threatened to shut off services in your home?: No Social Information Financial Resources: Unemployed SIGNATURE: Jake Morales RN PATIENT NAME: Daly Evans DATE: October 10, 2024 TIME: 2:17 PM [facility] 10-10-2024 Note HNO ID: [id number] Author: CHARLEE GARCIA RN Service: PICC Team Author Type: Registered Nurse Type: Procedures Filed: 10/10/2024 08:37 Note Text: MIDLINE INSERTION PROCEDURE NOTE - PICC TEAM NURSES DATE OF PROCEDURE: 10/10/2024 TIME OF PROCEDURE: 0800 ORDERING PHYSICIAN: Alycia Rawls CNP Indications for line placement: Intravenous access Condition of line placement: Sterile Primary Proceduralist: Shawn Vasquez RN Restoration Officer: Charlee Garcia RN Pre-procedure Review: ALLERGIES Allergen [...] with the procedure. Special equipment utilized [facility]. Patient/Surrogate Stated/Verified: Patient name, Date [...] patients). Midline Catheter Placement: Brand: BARD Lot: [id number] Number of lumens: 1 Type of Midline: Power Injectable Midline Lumen size: 3 Malaysian Placement Technique: Lidocaine: Yes, Lidocaine 1% Volume [...] or problems: Call Vascular Access Nurse on [facility] SIGNATURE: Charlee Garcia RN PATIENT NAME: Daly Evans DATE: October 10, 2024 TIME: 8:34 AM PAGER: Call [facility] 10-10-2024 Telephone encounter Note Scheduled. Message left for patient to confirm. Hospital will print at discharge. [facility] Work Phone: 10-10-2024 Miscellaneous Notes Scheduled. Message left for patient to confirm. Hospital will print at discharge. I see she is currently admitted to the hospital for accidental overdose. Please schedule her for follow-up with me after discharge to discuss recent lab work she had done at her initial consultation here. Martín Pendleton DO documented in this encounter [facility] 10-09-2024 Note HNO ID: [id number] Author: LETTY ARAUZ RDMS Service: Radiology Author [...] PATIENT PRESENTS WITH AN IMPLANTABLE OR ATTACHED CHRO: No RADIOLOGY DEPARTMENT: Ultrasound PERIPHERAL IV DATA: Not applicable SIGNED BY: Letty Arauz RDMS October 09, 2024 7:05 PM [facility] 10-09-2024 Telephone encounter Note I see she is currently admitted to the hospital for accidental overdose. Please schedule her for follow-up with me after discharge to discuss recent lab work she had done at her initial consultation here. Martín Pendleton DO [facility] Work Phone: 10-08-2024 Telephone encounter Note We were able to complete the virtual education visit as scheduled. [facility] 10-08-2024 Miscellaneous Notes We were able [...] this morning his call back number is [phone] documented in this encounter [facility] 10-08-2024 Telephone encounter Note I returned her father's call and got voicemail at the number he asked me to call and left a message. I then tried to call his cell and got voicemail as well and left another message. [facility] 10-08-2024 Telephone encounter Note Patient father called in stated he would like a call back this morning concerning the phone visit scheduled at 10am this morning his call back number is [phone] [facility] 10-08-2024 Telephone encounter Note Images from the original note were not included. [facility] V[facility]UAL EDUCATION VISIT REFERRAL: Referring Physician: Dr. Peter Smith ([facility]) Reason for Referral: Surgical rehabilitation Referring Diagnosis: SMA occlusion, disconnected SBS, on TPN HISTORY: Daly Estrella Lover is a 39 year old single female from [place], [place] ([address], supportive father) with a history of bipolar disorder, severe panic attacks, polysubstance abuse (EtOH, marijuana - sober since at least Apr 2024), violent behavior under influence of EtOH (September 2021), smoking (quit Jul 2024), (2012), preDM, and lap maryellen (2018). She was transferred to [facility] 08/20/24 with a mural thrombus in [...] DC to SNF 09/03/24 and referred to [facility] Surgical [facility] for STEP [...] since 08/22/24 [facility] Tube Feeds: no Height: 172 cm (5' 7.72) Weight: 91.5 kg (201 lb 11.5 oz) on 09/03/24 - BMI 30.9 [facility] Attending Physician manages her TPN. Dr. [...] Tuesday10/22/24, with labs in A30 at noon. [facility] 10-08-2024 Miscellaneous Notes Images from the original note were not included. [facility] REFERRAL: Referring Physician: Dr. Peter Smith ([facility]) Reason for Referral: Surgical rehabilitation Referring Diagnosis: SMA occlusion, disconnected SBS, on TPN HISTORY: Daly Estrella Lover is a 39 year old single female from [place], [place] ([address], supportive father) with a history of bipolar disorder, severe panic attacks, polysubstance abuse (EtOH, marijuana - sober since at least Apr 2024), violent behavior under influence of EtOH (September 2021), smoking (quit Jul 2024), (2012), preDM, and lap maryellen (2018). She was transferred to [facility] 08/20/24 with a mural thrombus in [...] DC to SNF 09/03/24 and referred to [facility] Surgical [facility] for STEP [...] since 08/22/24 stopped approx 10/01/[facility] [address] [facility] Tube Feeds: no Height: 172 cm (5' 7.72) Weight: 91.5 kg (201 lb 11.5 oz) on 09/03/24 - BMI 30.9 [facility] Attending Physician manages her TPN. Dr. [...] A30 at noon. documented in this encounter [facility] 10-03-2024 Telephone encounter Note Faxed. Irma Avila RN [facility] 10-03-2024 Miscellaneous Notes Faxed. Irma Avila RN [facility] called requesting office visit notes from yesterday be faxed to them at [phone] documented in this encounter [facility] 10-03-2024 Telephone encounter Note [facility] called requesting office visit notes from yesterday be faxed to them at [phone] [facility] Work Phone: 10-02-2024 History of Present illness Narrative Patient referred by Dr. 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 HPI: The patient is a 39-year-old female with past medical history as outlined below. Presented to the ED at [facility]. 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 Sent to [facility]. Surgical notes reviewed. Heterozygous factor V Leiden. Positive for lupus anticoagulant. JAK2 mutation negative PNH negative. Protein electrophoresis revealed a monoclonal spike quantitated at 0.21 g/dL. No monoclonal protein identified by immunofixation. Both kappa and lambda light chains elevated with an increased ratio of kappa to lambda. Immunoglobulins normal. Beta-2 microglobulin 3.0. Feeling better. At jail. On TPN 12 hours via left arm PICC. Has somewhat of an appetite. Has been eating small amounts. Walking. Still has gilberto in abdominal incision. Tolerating Lovenox injections well. No unusual bleeding or unexplained bruising. PAST MEDICAL HISTORY Diagnosis Date Attempted suicide (HCC) polysubstance Bipolar depression (HCC) [facility] Gestational diabetes mellitus in ([facility]) Impaired fasting blood sugar 06/2015 a1c 5.7% [...] abdomen is nondistended. Midline incision healing well. Carlotta in place. Left lower ostomy. Extremities: PICC [...] follow-up scheduled with vascular medicine at [facility]. - Recheck protein C&S today. - Her weight is 90 kg. Check low molecular weight heparin assay. - Check anticardiolipin and antibeta 2 glycoprotein antibodies today. -Plan on rotating to Coumadin once more stable as outlined above. I spent a total of 60 minutes on the date of the service which included preparing to see the patient, [id number] patient care, completing clinical documentation, obtaining and/or reviewing separately obtained history, performing a medically appropriate examination, counseling and educating the patient/family/caregiver, ordering medications, tests, or procedures, communicating with other HCPs (not separately reported), and communicating results to the patient/family/caregiver. Martín Pendleton DO documented in this encounter [facility] 09-27-2024 Note . MICRO - Microbiology [...] Locations *1: This test was performed at: [facility], [address] [place] [address], [id number] , [facility] 09-27-2024 Note . MICRO - Microbiology [...] Locations *1: This test was performed at: [facility], [address] [place] [address], [facility] , [facility] 09-27-2024 Note . MICRO - Microbiology [...] Locations *1: This test was performed at: [facility], [address] [place] [address], [facility] , [facility] 09-22-2024 Note . MICRO - Microbiology [...] Locations *1: This test was performed at: [address], [address]- , [facility] 09-20-2024 Note . MICRO - Microbiology [...] Locations *1: This test was performed at: [address], [address]- , [facility] 09-19-2024 History of Present illness Narrative Images from the original note were not included. [facility] [place] DEPARTMENT OF VASCULAR SURGERY OUTPATIENT VISIT DATE [...] sooner if clinically indicated SIGNATURE: Angela Blackwood APRN.DIRECTOR OF CLOUD SERVICES PATIENT NAME: Daly Evans DATE: September 19, 2024 TIME: 1434 documented in this encounter [facility] 09-17-2024 Note Discharge Instructio ns Discharge Summary [address] [address] [id number] 09/17/2024 Patient: DALY EVANS Sex: Female : 1985 Age: 39y Thank you for visiting [facility]. You have been evaluated today [...] by patient. Follow-up with: Maggie Putnam MD, [facility], Internal Medicine, Phone: [phone], [address] [place] [address]. Follow up in two days. Reason for referral: evaluation and treatment. Summary of care provided to follow-up provider and patient. Patient Signature 1 of 2 Discharge Instructions Facility Digital Producer Date/Time General Instructions with ExitWriter [address] [address] [id number] 09/17/2024 Patient: DALY EVANS Sex: Female : 1985 Age: 39y Thank you for visiting [facility]. You have been evaluated today [...] by patient. Follow-up with: Maggie Putnam MD, [facility], Internal Medicine, Phone: [phone], [address] [id number]. Follow up in two days. Reason for referral: evaluation and treatment. Summary of care provided to follow-up provider and patient. 2 of 2 [facility] 09-12-2024 Telephone encounter Note Called placed to Stefany at the pt's correction facility. Spoke to Stefany and she gave me the patient's room phone number. Tried calling the [phone] (pt's room phone number) but the pt did not answer and I was unable to leave a message. Will try again tomorrow. [facility] 09-12-2024 Miscellaneous Notes Called placed to Stefany at the pt's correction facility. Spoke to Stefany and she gave me the patient's room phone number. Tried calling the [phone] (pt's room phone number) but the pt did not answer and I was unable to leave a message. Will try again tomorrow. documented in this encounter [facility] 09-12-2024 Telephone encounter Note Scheduled with Stefany. [facility] Work Phone: 09-12-2024 Miscellaneous Notes Scheduled with Stefany. 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 Okay to schedule with either physician. Donna Hill LPN Received call from Stefany bazan [facility] stating Dr. Putnam would like patient to be seen by hematology, discharge papers showing blood clots. Patient had been seen at [facility] in vascular. Please advise Stefany at [phone] documented in this encounter [facility] [facility] Tele[facility] encounter Note DX: Acute phase response (low PC/PS/ATIII, elevated Factor VII, CRP); looks like lupus anticoagulant will be positive (+mix, platelet neutralization, hex phase), aCL and B2GP abs normal PHN, ANDREW-2, UPEP normal SPEP with +M protein Had embolectomy in July. Okay to schedule with either physician. Donna Hill LPN [facility] 09-12-2024 Telephone encounter Note Received call from Stefany bazan [facility] Dorian stating Dr. Putnam would like patient to be seen by hematology, discharge papers showing blood clots. Patient had been seen at [facility] in vascular. Please advise Stefany at [phone] [facility] 09-11-2024 Telephone encounter Note Jose Cutler, Looks like this patient was discharged to a facility. Maybe Stefany knows of a way to reach the patient directly? Shi Vargas [facility] 09-11-2024 Miscellaneous Notes Jose Cutler, Looks like this patient was discharged to a facility. Maybe Stefany knows of a way to reach the patient directly? Shi Vargas Stefany from the [facility] is calling in stating that the patients discharge instructions state to consult with the center for gut rehab regarding patients short bowel syndrome. Stefany is asking for a call back at [phone]. documented in this encounter [facility] 09-11-2024 Telephone encounter Note Stefany from the [facility] is calling in stating that the patients discharge instructions state to consult with the center for gut rehab regarding patients short bowel syndrome. Stefany is asking for a call back at [phone]. [facility] 09-10-2024 Telephone encounter Note 2nd call placed, left a vm. Letter sent as well. Will close referral on 09/17 if I do not hear back. [facility] 09-10-2024 Miscellaneous Notes 2nd call placed, left a vm. Letter sent as well. Will close referral on 09/17 if I do not hear back. documented in this encounter [facility] 09-06-2024 Telephone encounter Note Called pt but was unable to leave vm due to vm box full. Tried calling her father Ernst and left him a vm to give our office a call back to begin referral for short bowel. [facility] 09-06-2024 Miscellaneous Notes Called pt but was unable to leave vm due to vm box full. Tried calling her father Ernst and left him a vm to give our office a call back to begin referral for short bowel. documented in this encounter [facility] 09-05-2024 Telephone encounter Note Triage please? Stefany from [facility] called for appt for patient with Dr Goncalves.Patient had surgery with Dr Palomares in Jul 2024 please advise? Thanks, [facility] 09-05-2024 Miscellaneous Notes Triage please? Stefany from [facility] called for appt for patient with Dr Goncalves.Patient had surgery with Dr Palomares in Jul 2024 please advise? Thanks, Reason for call: Stefany would like to schedule an appointment with Dr Goncalves for f/up Home and cell number [phone] Diagnosis-f/up Kev Cedeno documented in this encounter [facility] 09-05-2024 Telephone encounter Note Reason for call: Stefany would like to schedule an appointment with Dr Goncalves for f/up Home and cell number [phone] Diagnosis-f/up Kev Cedeno [facility] 09-03-2024 Telephone encounter Note Received referral from referral triage for short bowel. Will call the pt for intake once discharged. [facility] 09-03-2024 Miscellaneous Notes Received referral from referral triage for short bowel. Will call the pt for intake once discharged. documented in this encounter [facility] 08-29-2024 Telephone encounter Note Left multiple messages by phone sent my chart message. [facility] 08-29-2024 Telephone encounter Note ----- Message from Xochilt Gaston APRN.DIRECTOR OF CLOUD SERVICES sent at 08/08/2024 4:07 PM EST ----- Routing information can be restored upon returning to the encounter [facility] 08-29-2024 Miscellaneous Notes Left multiple messages by phone sent my chart message. ----- Message from Xochilt Gaston APRN.DIRECTOR OF CLOUD SERVICES sent at 08/08/2024 4:07 PM EST ----- Routing information can be restored upon returning to the encounter Line busy will need to try back. ----- Message from Xochilt Gaston APRN.DIRECTOR OF CLOUD SERVICES sent at 08/08/2024 4:07 PM EST ----- Routing information can be restored upon returning to the encounter Called and left message on patients voicemail to return call to the office and ask to speak with a triage nurse. Lauren Hull MA ----- Message from Xochilt Gaston APRN.DIRECTOR OF CLOUD SERVICES sent at 08/08/2024 4:07 PM EST ----- [...] diabetes range. No other concerns. Xochilt Gaston APRN.DIRECTOR OF CLOUD SERVICES documented in this encounter [facility] 08-29-2024 Telephone encounter Note Line busy will need to try back. [facility] 08-29-2024 Telephone encounter Note ----- Message from Xochilt Gaston APRN.DIRECTOR OF CLOUD SERVICES sent at 08/08/2024 4:07 PM EST ----- Routing information can be restored upon returning to the encounter [facility] 08-20-2024 History of Present illness Narrative Images from the original note were not included. Critical Care Transport Note Patient Name: Daly Evans Service Date: 08/20/24 Referring Physician: Hakeem Referring Facility: [facility] Accepting Physician: David Accepting Facility: [facility] SUBJECTIVE/CHIEF COMPLAINT: abdominal pain, nausea REASON FOR [...] and vit D deficiency. She presented to [facility] early this AM for evaluation of [...] managing the patient requested transfer to the [facility] for tertiary and/or quaternary services unavailable at the referring facility. The physician managing the patient requested the [facility] Critical Care Transport Team transport and treat the patient for the purpose of tertiary care, evaluation, and management of her acute aortic mural thrombus with SMA occlusion condition(s). Air medical transport was requested to reduce the btu-mv-crfgkizb time, 19 minutes by air vs. approximately [...] PAST MEDICAL HISTORY Diagnosis Date Attempted suicide ([facility]) polysubstance Bipolar depression ([facility]) The [facility] Gestational diabetes mellitus [...] SaO2 >/= 93% - Expedite transport to [facility] for further workup and care The transport was completed without significant incident or change in the patient's status. The patient was transported to the the [facility] by Rotor (Helicopter) for tertiary and/or quaternary evaluation and management of her Emergent Surgical condition(s). Upon arrival to the receiving facility, a hqid-tk-lxyh report was given to bedside nursing staff in [facility] and bedside medical team . [...] pain and the Cardiovascular impairment, Respiratory impairment, COMPRESSOR ENGINEER impairment, Shock, Cardiac Arrest, and Severe metabolic abnormality which the patient had and/or had a high probability of suddenly developing. SIGNATURE: Katelyn Villagran APRN.CNP Acute Care Nurse Practitioner [facility] Critical Care Transport Team documented in this encounter [facility] 08-20-2024 Procedure note Procedure(s): ARTERIAL LINE [...] APRN.CNP PATIENT NAME: Daly Evans DATE: 08/20/24 [facility] 08-20-2024 Procedure note Procedure(s): ARTERIAL LINE [...] Evans DATE: 08/20/24 documented in this encounter [facility] 08-16-2024 History of Present illness Narrative [...] suicide (HCC) polysubstance Bipolar depression (HCC) The [facility] Gestational diabetes mellitus [...] Time: 3:37 PM documented in this encounter [facility] 08-10-2024 Telephone encounter Note Called and left message on patients voicemail to return call to the office and ask to speak with a triage nurse. Lauren Hull MA [facility] 08-08-2024 Telephone encounter Note ----- Message from Xochilt Gaston APRN.JUANY sent at 08/08/2024 4:07 PM EST ----- Routing information can be restored upon returning to the encounter [facility] 08-08-2024 Telephone encounter Note Left message [...] range. No other concerns. Xochilt Gaston APRN.CNP [facility] 08-07-2024 Telephone encounter Note Lexapro and Zyprexa prescription was sent to the patient's pharmacy. [facility] 08-07-2024 Miscellaneous Notes Lexapro and Zyprexa [...] medication management. Thanks! documented in this encounter [facility] 08-07-2024 Telephone encounter Note Appreciate the [...] A1C - COMPREHENSIVE METABOLIC PANEL Xochilt Gaston APRN.DIRECTOR OF CLOUD SERVICES documented in this encounter [facility] 05-20-2024 Instructions Clayton Granados APRN.DIRECTOR OF CLOUD SERVICES - 05/20/2024 9:38 PM EST TREATMENT PLAN: Discontinue Lamictal and Trazodone and patient stopped taking them due to reporting lack of efficacy. Complete monitoring lab work and EKG due to the risk of side effects due to intermodal dispatcher use of the combination of medication prescribed [...] the National Suicide Prevention Lifeline at 988 (241-999-9341) --text the Crisis Text Line (text HOME to 579528) --call 911 and let them know you are having a mental health crisis or go to your nearest Emergency Room for stabilization. --You can also call Mobile Crisis at [phone]. -- You may call the department appointment line at [phone] to schedule your appointment. -- Please call my nurse at [phone] or send me a message in Libboo with any questions or concerns between appointments. documented in this encounter [facility] 05-18-2024 History of Present illness Narrative [...] visit. Either the patient or their legal human resources representative has been informed of the risks [...] this at her earliest availability due to intermediate side effect profile of her current medications. [...] ago. Has not been taking the Lamictal. [place] that she forgot to take it and [...] suicide (HCC) polysubstance Bipolar depression (HCC) The [facility] Whyte Gestational diabetes mellitus in Impaired [...] the risk of side effects due to intermodal dispatcher use of the combination of medication prescribed [...] which included preparing to see the patient, wlhb-bn-hgnd patient care, completing clinical documentation, and counseling and educating the patient/family/caregiver, ordering medications/labs. ADD ON PSYCHOTHERAPY CODE : No SIGNATURE: Clayton Granados APRN.CNP PATIENT NAME: Daly Evans DATE: May 18, 2024 TIME: 2:07 PM documented in this encounter [facility] 03-03-2024 History of Present illness Narrative Patient did not log in for their follow up visit with the provider today. documented in this encounter [facility] 01-30-2024 Telephone encounter Note Tried calling patient no answer or vm available, sent [employer] message [facility] 01-30-2024 Miscellaneous Notes Tried calling patient no answer or vm available, sent [employer] message documented in this encounter [facility] 01-19-2024 History of Present illness Narrative Patient did not attend her follow up appointment with the provider today. She did not answer her phone when she was contacted prior to the appointment time. It appeared that she had confirmed her appointment today. documented in this encounter [facility] 12-30-2023 History of Present illness Narrative Patient sent a mychart requesting to reschedule the appointment right before the visit. Patient has been assisted in rescheduling this visit. documented in this encounter [facility] 12-12-2023 Telephone encounter Note Prescription Refill [...] Caba MA December 12, 2023 8:34 AM [facility] 12-12-2023 Telephone encounter Note See refill encounter [facility] 12-12-2023 Miscellaneous Notes See refill encounter documented in this encounter [facility] 12-12-2023 Miscellaneous Notes Prescription Refill Information [...] Satish Baez LPN. documented in this encounter [facility] 09-02-2023 History of Present illness Narrative [...] visit. Either the patient or their legal human resources representative has been informed of the risks [...] take 3 weeks off her job at [employer]. She is not having any luck in [...] this at her earliest availability due to intermediate side effect profile of her current medications. [...] which included preparing to see the patient, uhbq-ip-wdiq patient care, completing clinical documentation, obtaining and/or [...] TIME: 10:44 AM documented in this encounter [facility] 05-16-2023 History of Present illness Narrative [...] visit. Either the patient or their legal human resources representative has been informed of the risks [...] helping in 2 weeks by sending a [employer] message. 2. Continue the rest of the [...] looking for a job. Has applied to [employer]. She is worried that the background check [...] suicide (HCC) polysubstance Bipolar depression (HCC) The [facility] Camelia Whyte Gestational diabetes mellitus [...] which included preparing to see the patient, rmhg-ix-fyyx patient care, completing clinical documentation, obtaining and/or [...] TIME: 4:03 PM documented in this encounter [facility] 04-18-2023 History of Present illness Narrative [...] visit. Either the patient or their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 Noted Date Resolved Date 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 Overview: + urine tox on 11/04/2017 documented as of this encounter (statuses as of 10/28/2021) [facility] of Past [facility] Narrative* Problem Noted Date Resolved Date 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 Overview: + urine tox on 11/04/2017 documented as of this encounter (statuses as of 10/30/2021) [facility] of Past [facility] Narrative* Problem Noted Date Resolved Date 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 Overview: + urine tox on 11/04/2017 documented as of this encounter (statuses as of 11/04/2021) [facility] of [facility] Narrative* Problem Noted Date Resolved Date 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 Overview: + urine tox on 11/04/2017 documented as of this encounter (statuses as of 11/04/2021) [facility] Narrative* Problem Noted Date Resolved Date 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 Overview: + urine tox on 11/04/2017 documented as of this encounter (statuses as of 11/13/2021) [facility] Narrative* Problem Noted Date Resolved Date 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 Overview: + urine tox on 11/04/2017 documented as of this encounter (statuses as of 11/27/2021) [facility] Narrative* Problem Noted Date Resolved Date 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 Overview: + urine tox on 11/04/2017 documented as of this encounter (statuses as of 12/08/2021) [facility] Narrative* Problem Noted Date Resolved Date 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 Overview: + urine tox on 11/04/2017 documented as of this encounter (statuses as of 12/15/2021) [facility] Narrative* Problem Noted Date Resolved Date 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 Overview: + urine tox on 11/04/2017 documented as of this encounter (statuses as of 12/23/2021) [facility] Narrative* Problem Noted Date Resolved Date 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 Overview: + urine tox on 11/04/2017 documented as of this encounter (statuses as of 12/26/2021) [facility] Narrative* Problem Noted Date Resolved Date 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 Overview: + urine tox on 11/04/2017 documented as of this encounter (statuses as of 01/11/2022) [facility] N[facility]* Problem Noted Date Resolved Date 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 Overview: + urine tox on 11/04/2017 documented as of this encounter (statuses as of 02/02/2022) [address] History of Past illness Narrative* Problem Noted Date Resolved Date 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 Overview: + urine tox on 11/04/2017 documented as of this encounter (statuses as of 02/02/2022) [facility]* Problem Noted Date Resolved Date 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 Overview: + urine tox on 11/04/2017 documented as of this encounter (statuses as of 02/12/2022) [address]2018 History of Past illness Narrative* Problem Noted Date Resolved Date 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 Overview: + urine tox on 11/04/2017 documented as of this encounter (statuses as of 03/09/2022) [address]2018 History of Past illness Narrative* Problem Noted Date Resolved Date 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 Overview: + urine tox on 11/04/2017 documented as of this encounter (statuses as of 03/29/2022) [facility]* Problem Noted Date Resolved Date 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 Overview: + urine tox on 11/04/2017 documented as of this encounter (statuses as of 04/09/2022) [facility] Narrative* Problem Noted Date Resolved Date 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 Overview: + urine tox on 11/04/2017 documented as of this encounter (statuses as of 05/10/2022) [facility] N[facility]ative* Problem Noted Date Resolved Date 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 Overview: + urine tox on 11/04/2017 documented as of this encounter (statuses as of 05/10/2022) [address]2018 History of Past illness Narrative* Problem Noted Date Resolved Date 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 Overview: + urine tox on 11/04/2017 documented as of this encounter (statuses as of 05/11/2022) [address]2018 History of Past illness Narrative* Problem Noted Date Resolved Date 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 Overview: + urine tox on 11/04/2017 documented as of this encounter (statuses as of 05/24/2022) [address]2018 History of Past illness Narrative* Problem Noted Date Resolved Date 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 Overview: + urine tox on 11/04/2017 documented as of this encounter (statuses as of 06/06/2022) [address]2018 History of Past illness Narrative* Problem Noted Date Resolved Date 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 Overview: + urine tox on 11/04/2017 documented as of this encounter (statuses as of 07/02/2022) [address]2018 History of Past illness Narrative* Problem Noted Date Resolved Date 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 Overview: + urine tox on 11/04/2017 documented as of this encounter (statuses as of 07/06/2022) [facility]* Problem Noted Date Resolved Date 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 Overview: + urine tox on 11/04/2017 documented as of this encounter (statuses as of 07/26/2022) [address]2018 History of Past illness Narrative* Problem Noted Date Resolved Date 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 Overview: + urine tox on 11/04/2017 documented as of this encounter (statuses as of 08/09/2022) [address]2018 History of Past illness Narrative* Problem Noted Date Resolved Date 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 Overview: + urine tox on 11/04/2017 documented as of this encounter (statuses as of 08/24/2022) [address]2018 History of Past illness Narrative* Problem Noted Date Resolved Date 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 Overview: + urine tox on 11/04/2017 documented as of this encounter (statuses as of 09/13/2022) [address]2018 History of Past illness Narrative* Problem Noted Date Resolved Date 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 Overview: + urine tox on 11/04/2017 documented as of this encounter (statuses as of 09/30/2022) [address]2018 History of Past illness Narrative* Problem Noted Date Resolved Date 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 Overview: + urine tox on 11/04/2017 documented as of this encounter (statuses as of 10/01/2022) [address]2018 History of Past illness Narrative* Problem Noted Date Resolved Date 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 Overview: + urine tox on 11/04/2017 documented as of this encounter (statuses as of 10/04/2022) [facility]* Problem Noted Date Resolved Date 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 Overview: + urine tox on 11/04/2017 documented as of this encounter (statuses as of 10/29/2022) [facility] Narrative* Problem Noted Date Resolved Date 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 Overview: + urine tox on 11/04/2017 documented as of this encounter (statuses as of 12/24/2022) [address]2018 History of Past illness Narrative* Problem Noted Date Diagnosed Date Resolved Date Methamphetamine abuse 11/22/20172018 Overview: + urine tox on 11/04/2017 documented as of this encounter (statuses as of 01/03/2023) [facility] Narrative* Problem Noted Date Diagnosed Date Resolved Date Methamphetamine abuse 11/22/20172018 Overview: + urine tox on 11/04/2017 documented as of this encounter (statuses as of 01/04/2023) [facility] Narrative* Problem Noted Date Diagnosed Date Resolved Date Methamphetamine abuse 11/22/20172018 Overview: + urine tox on 11/04/2017 documented as of this encounter (statuses as of 01/06/2023) [facility] of [facility] Narrative* Problem Noted Date Diagnosed Date Resolved Date Methamphetamine abuse 11/22/20172018 Overview: + urine tox on 11/04/2017 documented as of this encounter (statuses as of 02/25/2023) [facility] Narrative* Problem Noted Date Diagnosed Date Resolved Date Methamphetamine abuse 11/22/20172018 Overview: + urine tox on 11/04/2017 documented as of this encounter (statuses as of 03/15/2023) [facility] of [facility] Narrative* Problem Noted Date Diagnosed Date Resolved Date Methamphetamine abuse 11/22/20172018 Overview: + urine tox on 11/04/2017 documented as of this encounter (statuses as of 03/15/2023) [facility] Narrative* Problem Noted Date Diagnosed Date Resolved Date Methamphetamine abuse 11/22/20172018 Overview: + urine tox on 11/04/2017 documented as of this encounter (statuses as of 04/22/2023) [address]29-2018 History of Past illness Narrative* Problem Noted Date Diagnosed Date Resolved Date Methamphetamine abuse 11/22/20172018 Overview: + urine tox on 11/04/2017 documented as of this encounter (statuses as of 05/17/2023) [facility]-2018 History of Past illness Narrative* Problem Noted Date Diagnosed Date Resolved Date Methamphetamine abuse 11/22/20172018 Overview: + urine tox on 11/04/2017 documented as of this encounter (statuses as of 05/24/2023) [address]29-2018 History of Past illness Narrative* Problem Noted Date Diagnosed Date Resolved Date Methamphetamine abuse 11/22/20172018 Overview: + urine tox on 11/04/2017 documented as of this encounter (statuses as of 2023) [facility]-29-2018 History of Past illness Narrative* Problem Noted Date Diagnosed Date Resolved Date Methamphetamine abuse 11/22/20172018 Overview: + urine tox on 11/04/2017 documented as of this encounter (statuses as of 09/28/2023) [facility] Panic attacks Panic disorder without agoraphobia [facility]* Diagnosis Bipolar affective disorder, current episode mixed, current episode severity unspecified ([facility])- Primary Alcohol abuse Alcohol abuse, unspecified Depressive disorder Depressive disorder, not elsewhere classified Panic attacks Panic disorder without agoraphobia ADD (attention deficit disorder) without hyperactivity Attention deficit disorder without mention of hyperactivity Legal intervention, bystander injured, initial encounter [facility]* Diagnosis ELIJAH (generalized anxiety disorder)- Primary Generalized anxiety disorder Bipolar 2 disorder (HCC) Other bipolar disorders [facility]* Diagnosis ADD (attention deficit disorder) without hyperactivity Attention deficit disorder without mention of hyperactivity [facility] Diagnosis Iron deficiency anemia, unspecified iron deficiency anemia type [facility] Diagnosis ELIJAH (generalized anxiety disorder)- Primary Generalized anxiety disorder Bipolar 2 disorder (HCC) Other bipolar disorders [facility]* Diagnosis ELIJAH (generalized anxiety disorder) Generalized anxiety disorder [facility] Diagnosis ADD (attention deficit disorder) without hyperactivity Attention deficit disorder without mention of hyperactivity [facility]* Diagnosis ELIJAH (generalized anxiety disorder)- Primary Generalized anxiety disorder Bipolar 2 disorder (HCC) Other bipolar disorders Panic disorder without agoraphobia [facility] Diagnosis ELIJAH (generalized anxiety disorder) Generalized anxiety disorder [facility] Diagnosis Bipolar 2 disorder (HCC)- Primary Other bipolar disorders Panic disorder without agoraphobia [facility]* Diagnosis Bilateral hand pain- Primary Pain in limb Foot pain, bilateral Pain in limb Fatigue, unspecified type Myalgia Mylagia and myositis, unspecified Multiple joint pain Pain in joint, multiple sites Iron deficiency Iron deficiency anemia, unspecified [facility] Diagnosis ELIJAH (generalized anxiety disorder) Generalized anxiety disorder [facility] Diagnosis Panic disorder without agoraphobia- Primary Bipolar 2 disorder (HCC) Other bipolar disorders [facility] Diagnosis Bilateral hand pain- Primary Pain in limb Elevated C-reactive protein (CRP) Bipolar affective disorder, current episode mixed, current episode severity unspecified ([facility]) [facility]* Diagnosis NO SHOW- Primary documented in this [facility]* Diagnosis Muscle spasm of back Other symptoms referable to back Acute bilateral thoracic back pain [facility]* Diagnosis Encounter for long-term (current) use of medications- Primary Encounter for long-term (current) use of other medications Panic disorder without agoraphobia Bipolar 2 disorder (HCC) Other bipolar disorders [facility]* Diagnosis GERD without esophagitis Esophageal reflux [facility]* Diagnosis Marijuana use- Primary Cannabis abuse, unspecified [facility]* Diagnosis Panic disorder without agoraphobia- Primary Bipolar 2 disorder (HCC) Other bipolar disorders Marijuana use Cannabis abuse, unspecified [facility]* Diagnosis NO SHOW- Primary [facility]* Diagnosis Bipolar II disorder (HCC)- Primary Other bipolar disorders [facility]* Diagnosis Bipolar 2 disorder (HCC)- Primary Other bipolar disorders Panic disorder without agoraphobia Marijuana use Cannabis abuse, unspecified [facility] Diagnosis History of marijuana use- Primary Bipolar II disorder (HCC) Other bipolar disorders Panic disorder without agoraphobia [facility]* Diagnosis Encounter for long-term (current) use of medications- Primary Encounter for long-term (current) use of other medications ELIJAH (generalized anxiety disorder) Generalized anxiety disorder Panic attacks Panic disorder without agoraphobia Bipolar affective disorder, current episode mixed, current episode severity unspecified (HCC) [facility]* Diagnosis ELIJAH (generalized anxiety disorder)- Primary Generalized anxiety disorder Panic attacks Panic disorder without agoraphobia Bipolar II disorder (HCC) Other bipolar disorders Occasional use of marijuana [facility] Diagnosis Encounter for long-term (current) use of medications- Primary Encounter for long-term (current) use of other medications ELIJAH (generalized anxiety disorder) Generalized anxiety disorder Bipolar II disorder (HCC) Other bipolar disorders Panic disorder without agoraphobia [facility]* Diagnosis Bipolar II disorder (HCC)- Primary Other bipolar disorders Encounter for long-term (current) use of medications Encounter for long-term (current) use of other medications Panic disorder without agoraphobia History of marijuana use ELIJAH (generalized anxiety disorder) Generalized anxiety disorder [facility] Diagnosis GERD without esophagitis Esophageal reflux [facility]* Diagnosis Encounter for screening mammogram for breast cancer [facility]* Diagnosis APPOINTMENT CANCELLED- Primary [facility]* Diagnosis NO SHOW- Primary [facility]* Diagnosis Acute pain of left knee [facility]* Diagnosis ELIJAH (generalized anxiety disorder)- Primary Generalized anxiety disorder Marijuana use Cannabis abuse, unspecified Panic attacks Panic disorder without agoraphobia [facility] Diagnosis ELIJAH (generalized anxiety disorder)- Primary Generalized anxiety disorder Panic attacks Panic disorder without agoraphobia Insomnia due to other mental disorder Bipolar II disorder (HCC) Other bipolar disorders Encounter for long-term (current) use of medications Encounter for long-term (current) use of other medications History of marijuana use Psychosocial stressors Other psychological or physical stress, not elsewhere classified [facility]* Diagnosis Medication management- Primary Encounter for long-term (current) use of other medications Hypokalemia Hypopotassemia Low hemoglobin Anemia, unspecified Anemia, unspecified type Elevated hemoglobin A1c Other abnormal blood chemistry [facility]* Diagnosis Productive cough- Primary Cough Eczema, unspecified type [facility]* Diagnosis Anemia, unspecified type- Primary [facility]* Diagnosis 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 [facility]* Diagnosis Encounter for post surgical wound check- Primary Encounter for staple removal Encounter for removal of sutures Arterial occlusion Embolism and thrombosis of unspecified artery Acute lower limb ischemia MCC (current) use of aspirin MCC current use of anticoagulant Long-term (current) use of anticoagulants [facility]* Diagnosis Aortic thrombus (HCC)- Primary Embolism and thrombosis of thoracic aorta [facility]* Diagnosis Abnormal serum protein electrophoresis- Primary Other nonspecific findings on examination of blood Antiphospholipid antibody syndrome (HCC) Primary hypercoagulable state Superior mesenteric artery thrombosis (HCC) Acute vascular insufficiency of intestine [facility]* Diagnosis 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 Disorder of artery or arteriole Unspecified disorders of arteries and arterioles [facility]* Diagnosis On total parenteral nutrition (TPN)- Primary Other specified conditions influencing health status [facility]* Diagnosis 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 [facility] Diagnosis High output ileostomy (HCC)- Primary [...] health status [facility] Diagnosis High output ileostomy (HCC)- Primary [...] postprocedural status [facility] Diagnosis High output ileostomy (HCC)- Primary [...] Other postprocedural status [facility]* Diagnosis High output ileostomy (HCC)- Primary [...] other mental disorder [facility] Diagnosis High output ileostomy (HCC)- Primary [...] use of anticoagulants [facility] Diagnosis High output ileostomy (HCC)- [...] of lower extremity [facility] Diagnosis High output ileostomy (HCC)- [...] of vascular catheter [facility] Diagnosis High output ileostomy (HCC)- [...] examination [facility] Diagnosis High output ileostomy (HCC)- Primary [...] hyponatremia Hypokalemia Hypopotassemia documented [facility]* Diagnosis High output ileostomy (HCC)- Primary [...] disorder of intestines [facility] Diagnosis High output ileostomy (HCC)- Primary [...] of lower extremity [facility]* Diagnosis High output ileostomy (HCC)- Primary [...] laterality (HCC)- Primary documented in this encounter [facility] for referral (narrative)* Outpatient Procedure (Routine) - Pending Review Specialty Diagnoses / Procedures Referred By Contac t Referred To [facility] Diagnoses ELIJAH (generalized anxiety disorder) Procedures ECG COMPLETE ECG ROUTINE ECG W/LEAST 12 LDS W/I&R Clayton Granados APRN.DIRECTOR OF CLOUD SERVICES [address] [place] [address] [facility] [place] [address] [place] [address] Referral ID Status Reason Start Date Expiration Date Visits Requested Visits Authorized [id number] Pending Review Auto-Generat ed Referral 12/24/2021 12/24/2022 1 1 [facility] for referral (narrative)* Diagnostic Procedure Only (Routine) - Pending Review Specialty Diagnoses / Procedures Referred By Contac t Referred To Contact XR IMAGING Diagnoses Foot pain, bilateral Procedures XR FOOT GENERAL 3V AP/LAT/OBL BILATERAL RADEX FOOT COMPLETE MINIMUM 3 VIEWS Fredrick Boland DO [address] [place] [address] [facility] Referral ID Status Reason Start Date Expiration Date Visits Requested Visits Authorized [id number] Pending Review Auto-Generat ed Referral 02/02/2022 03/04/2023 1 1 * Diagnostic Procedure Only (Routine) - Pending Review Specialty Diagnoses / Procedures Referred By Contac t Referred To Contact XR IMAGING Diagnoses Bilateral hand pain Procedures XR HAND GENERAL 3V PA/LAT/OBL BILATERAL RADEX HAND MINIMUM 3 VIEWS Fredrick Boland, DO [address] [place] [address] [facility] Referral ID Status Reason Start Date Expiration Date Visits Requested Visits Authorized [id number] Pending Review Auto-Generat ed Referral 02/02/2022 03/04/2023 1 1 [facility] for referral (narrative)* Outpatient Procedure (Routine) - Pending Review Specialty Diagnoses / Procedures Referred By Contac t Referred [facility] Diagnoses Encounter for long-term (current) use of medications Procedures ECG COMPLETE ECG ROUTINE ECG W/LEAST 12 LDS W/I&R Clayton Granados, [employer] V[employer]OR.DIRECTOR OF CLOUD SERVICES [address] [place] [address] [facility] [place] [address] [place] [address] Referral ID Status Reason Start Date Expiration Date Visits Requested Visits Authorized [id number] Pending Review Auto-Generat ed Referral 03/14/2023 03/13/2024 1 1 [facility] for referral (narrative)* Diagnostic Procedure Only (Routine) - Pending Review Specialty Diagnoses / Procedures Referred By Contac t Referred To Contact BR IM[facility] Diagnoses Encounter for screening mammogram for breast cancer Procedures MILO SCREENING SCREENING MAMMOGRAPHY BI 2-VIEW BREAST INC CAD Fredrick Boland DO [address] [place] [address] [facility] [address] [place] [address] Referral ID Status Reason Start Date Expiration Date Visits Requested Visits Authorized [id number] Pending Review Auto-Generat ed Referral 10/19/2023 11/17/2024 1 1 [facility] for referral (narrative)* Diagnostic Procedure Only (Routine) - Closed Specialty Diagnoses / Procedures Referred By Contac t Referred To Contact XR IMAGING Diagnoses Acute pain of left knee Procedures XR KNEE GENERAL 4V AP BOTH/PA BOTH/LAT/MERC LT KNEE AP-WGT/LAT/MERCHANT Herbert Izquierdo MD [address] [place] [address] [place] [address] Referral ID Status Reason Start Date Expiration Date V isits Requested Visits Authorized Closed Auto-Generate d Referral 03/12/2021 04/11/2022 1 1 [facility] for referral (narrative)* Outpatient Procedure (Routine) - New Request Specialty Diagnoses / Procedures Referred By Matias vaughan Referred To Contact [facility] [place] Diagnoses Encounter for long-term (current) use of medications Procedures ECG COMPLETE ECG ROUTINE ECG W/LEAST 12 LDS W/I&R Clayton Granados, [employer]OR.DIRECTOR OF CL[employer]D SERVICES [address] [place] [address] [facility] [place] [address] [place] [address] Referral ID Status Reason Start Date Expiration Date Visits Requested Visits Authorized [id number] New Request Auto-Generat ed Referral 4 05/18/2025 1 1 Electronically signed by Clayton Granados [employer] V[employer] VENDOR.DIRECTOR OF CLOUD SERVICES at 05/18/2024 2:31 PM EST [facility] for visit Narrative* Diagnostic Procedure Only (Routine) - Closed Specialty Diagnoses / Procedures Referred By Matias vaughan Referred To Contact XR IMAGING Diagnoses Acute pain of left knee Procedures XR KNEE GENERAL 4V AP BOTH/PA BOTH/LAT/MERC LT KNEE AP-WGT/LAT/MERCHANT Herbert Izquierdo MD [address] [place] [address] [place] [address] Referral ID Status Reason Start Date Expiration Date V isits Requested Visits Authorized Closed Auto-Generate d Referral 03/12/2021 04/11/2022 1 1 [facility] Summary Purpose Family History No Family [...] Documents on File Type Date Recorded Patient Digital Producer Expl anation Advance Directive(s) 10/10/2021 1:22 AM Documents on File Type Date Recorded Patient Digital Producer Expl anation Advance Directive(s) 10/10/2021 1:22 AM [...] section and content) DATE CREATED AUTHOR 01/07/2018 [facility] DATE CREATED AUTHOR AUTHOR'S ORGANIZ ATION 06/13/2018 [facility] DATE CREATED AUTHOR AUTHOR'S ORGANIZ ATION 05/30/2021 [facility] DATE CREATED AUTHOR AUTHOR'S ORGANIZ ATION 10/07/2022 [facility] DATE CREATED AUTHOR AUTHOR'S ORGANIZ ATION 10/07/2022 [facility] DATE CREATED AUTHOR AUTHOR'S ORGANIZ ATION 12/08/2022 [facility] DATE CREATED AUTHOR AUTHOR'S ORGANIZ ATION 09/30/2024 [facility] DATE CREATED AUTHOR AUTHOR'S ORGANIZ ATION 10/30/2024 [facility] DATE CREATED AUTHOR AUTHOR'S ORGANIZ ATION 11/04/2024 [facility] DATE CREATED AUTHOR AUTHOR'S ORGANIZ ATION 03/29/2025 [facility] DATE CREATED AUTHOR AUTHOR'S ORGANIZ ATION 04/23/2025 [facility] DATE CREATED AUTHOR AUTHOR'S ORGANIZ ATION 05/03/2025 [facility] DATE CREATED AUTHOR AUTHOR'S ORGANIZ ATION 05/08/2025 [facility] Source Comments (unrecognize d section and content) In the event this informatio n is protected by the Federal Confidentiality of Alcohol and Drug Abuse Patient Records regulations: The Federal rules restrict any use of the information to criminally investigate or prosecute any alcohol or drug abuse patient.[facility] the event this information is protected by the Federal Confidentiality of Alcohol and Drug Abuse Patient Records regulations: The Federal rules restrict any use of the information to criminally investigate or prosecute any alcohol or drug abuse patient.[facility] the event this information is protected by the Federal Confidentiality of Alcohol and Drug Abuse Patient Records regulations: The Federal rules restrict any use of the information to criminally investigate or prosecute any alcohol or drug abuse patient.[facility] the event this information is protected by the Federal Confidentiality of Alcohol and Drug Abuse Patient Records regulations: The Federal rules restrict any use of the information to criminally investigate or prosecute any alcohol or drug abuse patient.[facility] the event this information is protected by the Federal Confidentiality of Alcohol and Drug Abuse Patient Records regulations: The Federal rules restrict any use of the information to criminally investigate or prosecute any alcohol or drug abuse patient.[facility] the event this information is protected by the Federal Confidentiality of Alcohol and Drug Abuse Patient Records regulations: The Federal rules restrict any use of the information to criminally investigate or prosecute any alcohol or drug abuse patient.[facility] the event this information is protected by the Federal Confidentiality of Alcohol and Drug Abuse Patient Records regulations: The Federal rules restrict any use of the information to criminally investigate or prosecute any alcohol or drug abuse patient.[facility] the event this information is protected by the Federal Confidentiality of Alcohol and Drug Abuse Patient Records regulations: The Federal rules restrict any use of the information to criminally investigate or prosecute any alcohol or drug abuse patient.[facility] the event this information is protected by the Federal Confidentiality of Alcohol and Drug Abuse Patient Records regulations: The Federal rules restrict any use of the information to criminally investigate or prosecute any alcohol or drug abuse patient.[facility] the event this information is protected by the Federal Confidentiality of Alcohol and Drug Abuse Patient Records regulations: The Federal rules restrict any use of the information to criminally investigate or prosecute any alcohol or drug abuse patient.[facility] the event this information is protected by the Federal Confidentiality of Alcohol and Drug Abuse Patient Records regulations: The Federal rules restrict any use of the information to criminally investigate or prosecute any alcohol or drug abuse patient.[facility] the event this information is protected by the Federal Confidentiality of Alcohol and Drug Abuse Patient Records regulations: The Federal rules restrict any use of the information to criminally investigate or prosecute any alcohol or drug abuse patient.[facility] the event this information is protected by the Federal Confidentiality of Alcohol and Drug Abuse Patient Records regulations: The Federal rules restrict any use of the information to criminally investigate or prosecute any alcohol or drug abuse patient.[facility] Hospital[facility] the event this information is protected by the Federal Confidentiality of Alcohol and Drug Abuse Patient Records regulations: The Federal rules restrict any use of the information to criminally investigate or prosecute any alcohol or drug abuse patient.[facility] Hospital[facility] the event this information is protected by the Federal Confidentiality of Alcohol and Drug Abuse Patient Records regulations: The Federal rules restrict any use of the information to criminally investigate or prosecute any alcohol or drug abuse patient.[facility]In the event this information is protected by the Federal Confidentiality of Alcohol and Drug Abuse Patient Records regulations: The Federal rules restrict any use of the information to criminally investigate or prosecute any alcohol or drug abuse patient.[facility] HospitalIn the event this information is protected by the Federal Confidentiality of Alcohol and Drug Abuse Patient Records regulations: The Federal rules restrict any use of the information to criminally investigate or prosecute any alcohol or drug abuse patient.[facility] HospitalIn the event this information is protected by the Federal Confidentiality of Alcohol and Drug Abuse Patient Records regulations: The Federal rules restrict any use of the information to criminally investigate or prosecute any alcohol or drug abuse patient.[facility] HospitalIn the event this information is protected by the Federal Confidentiality of Alcohol and Drug Abuse Patient Records regulations: The Federal rules restrict any use of the information to criminally investigate or prosecute any alcohol or drug abuse patient.[facility] HospitalIn the event this information is protected by the Federal Confidentiality of Alcohol and Drug Abuse Patient Records regulations: The Federal rules restrict any use of the information to criminally investigate or prosecute any alcohol or drug abuse patient.[facility] HospitalIn the event this information is protected by the Federal Confidentiality of Alcohol and Drug Abuse Patient Records regulations: The Federal rules restrict any use of the information to criminally investigate or prosecute any alcohol or drug abuse patient.[facility]In the event this information is protected by the Federal Confidentiality of Alcohol and Drug Abuse Patient Records regulations: The Federal rules restrict any use of the information to criminally investigate or prosecute any alcohol or drug abuse patient.[facility] HospitalIn the event this information is protected by the Federal Confidentiality of Alcohol and Drug Abuse Patient Records regulations: The Federal rules restrict any use of the information to criminally investigate or prosecute any alcohol or drug abuse patient.[facility] HospitalIn the event this information is protected by the Federal Confidentiality of Alcohol and Drug Abuse Patient Records regulations: The Federal rules restrict any use of the information to criminally investigate or prosecute any alcohol or drug abuse patient.[facility] HospitalIn the event this information is protected by the Federal Confidentiality of Alcohol and Drug Abuse Patient Records regulations: The Federal rules restrict any use of the information to criminally investigate or prosecute any alcohol or drug abuse patient.[facility]In the event this information is protected by the Federal Confidentiality of Alcohol and Drug Abuse Patient Records regulations: The Federal rules restrict any use of the information to criminally investigate or prosecute any alcohol or drug abuse patient.[facility]In the event this information is protected by the Federal Confidentiality of Alcohol and Drug Abuse Patient Records regulations: The Federal rules restrict any use of the information to criminally investigate or prosecute any alcohol or drug abuse patient.[facility]In the event this information is protected by the Federal Confidentiality of Alcohol and Drug Abuse Patient Records regulations: The Federal rules restrict any use of the information to criminally investigate or prosecute any alcohol or drug abuse patient.[facility]In the event this information is protected by the Federal Confidentiality of Alcohol and Drug Abuse Patient Records regulations: The Federal rules restrict any use of the information to criminally investigate or prosecute any alcohol or drug abuse patient.[facility] HospitalIn the event this information is protected by the Federal Confidentiality of Alcohol and Drug Abuse Patient Records regulations: The Federal rules restrict any use of the information to criminally investigate or prosecute any alcohol or drug abuse patient.[facility]In the event this information is protected by the Federal Confidentiality of Alcohol and Drug Abuse Patient Records regulations: The Federal rules restrict any use of the information to criminally investigate or prosecute any alcohol or drug abuse patient.[facility] HospitalIn the event this information is protected by the Federal Confidentiality of Alcohol and Drug Abuse Patient Records regulations: The Federal rules restrict any use of the information to criminally investigate or prosecute any alcohol or drug abuse patient.[facility] HospitalIn the event this information is protected by the Federal Confidentiality of Alcohol and Drug Abuse Patient Records regulations: The Federal rules restrict any use of the information to criminally investigate or prosecute any alcohol or drug abuse patient.[facility] HospitalIn the event this information is protected by the Federal Confidentiality of Alcohol and Drug Abuse Patient Records regulations: The Federal rules restrict any use of the information to criminally investigate or prosecute any alcohol or drug abuse patient.[facility] HospitalIn the event this information is protected by the Federal Confidentiality of Alcohol and Drug Abuse Patient Records regulations: The Federal rules restrict any use of the information to criminally investigate or prosecute any alcohol or drug abuse patient.[facility]In the event this information is protected by the Federal Confidentiality of Alcohol and Drug Abuse Patient Records regulations: The Federal rules restrict any use of the information to criminally investigate or prosecute any alcohol or drug abuse patient.[facility]In the event this information is protected by the Federal Confidentiality of Alcohol and Drug Abuse Patient Records regulations: The Federal rules restrict any use of the information to criminally investigate or prosecute any alcohol or drug abuse patient.[facility]In the event this information is protected by the Federal Confidentiality of Alcohol and Drug Abuse Patient Records regulations: The Federal rules restrict any use of the information to criminally investigate or prosecute any alcohol or drug abuse patient.[facility]In the event this information is protected by the Federal Confidentiality of Alcohol and Drug Abuse Patient Records regulations: The Federal rules restrict any use of the information to criminally investigate or prosecute any alcohol or drug abuse patient.[facility] HospitalIn the event this information is protected by the Federal Confidentiality of Alcohol and Drug Abuse Patient Records regulations: The Federal rules restrict any use of the information to criminally investigate or prosecute any alcohol or drug abuse patient.[facility] HospitalIn the event this information is protected by the Federal Confidentiality of Alcohol and Drug Abuse Patient Records regulations: The Federal rules restrict any use of the information to criminally investigate or prosecute any alcohol or drug abuse patient.[facility]In the event this information is protected by the Federal Confidentiality of Alcohol and Drug Abuse Patient Records regulations: The Federal rules restrict any use of the information to criminally investigate or prosecute any alcohol or drug abuse patient.[facility] HospitalIn the event this information is protected by the Federal Confidentiality of Alcohol and Drug Abuse Patient Records regulations: The Federal rules restrict any use of the information to criminally investigate or prosecute any alcohol or drug abuse patient.[facility] HospitalIn the event this information is protected by the Federal Confidentiality of Alcohol and Drug Abuse Patient Records regulations: The Federal rules restrict any use of the information to criminally investigate or prosecute any alcohol or drug abuse patient.[facility] HospitalIn the event this information is protected by the Federal Confidentiality of Alcohol and Drug Abuse Patient Records regulations: The Federal rules restrict any use of the information to criminally investigate or prosecute any alcohol or drug abuse patient.[facility]In the event this information is protected by the Federal Confidentiality of Alcohol and Drug Abuse Patient Records regulations: The Federal rules restrict any use of the information to criminally investigate or prosecute any alcohol or drug abuse patient.[facility]In the event this information is protected by the Federal Confidentiality of Alcohol and Drug Abuse Patient Records regulations: The Federal rules restrict any use of the information to criminally investigate or prosecute any alcohol or drug abuse patient.[facility]In the event this information is protected by the Federal Confidentiality of Alcohol and Drug Abuse Patient Records regulations: The Federal rules restrict any use of the information to criminally investigate or prosecute any alcohol or drug abuse patient.[facility]In the event this information is protected by the Federal Confidentiality of Alcohol and Drug Abuse Patient Records regulations: The Federal rules restrict any use of the information to criminally investigate or prosecute any alcohol or drug abuse patient.[facility]In the event this information is protected by the Federal Confidentiality of Alcohol and Drug Abuse Patient Records regulations: The Federal rules restrict any use of the information to criminally investigate or prosecute any alcohol or drug abuse patient.[facility]In the event this information is protected by the Federal Confidentiality of Alcohol and Drug Abuse Patient Records regulations: The Federal rules restrict any use of the information to criminally investigate or prosecute any alcohol or drug abuse patient.[facility]In the event this information is protected by the Federal Confidentiality of Alcohol and Drug Abuse Patient Records regulations: The Federal rules restrict any use of the information to criminally investigate or prosecute any alcohol or drug abuse patient.[facility]In the event this information is protected by the Federal Confidentiality of Alcohol and Drug Abuse Patient Records regulations: The Federal rules restrict any use of the information to criminally investigate or prosecute any alcohol or drug abuse patient.[facility]In the event this information is protected by the Federal Confidentiality of Alcohol and Drug Abuse Patient Records regulations: The Federal rules restrict any use of the information to criminally investigate or prosecute any alcohol or drug abuse patient.[facility]In the event this information is protected by the Federal Confidentiality of Alcohol and Drug Abuse Patient Records regulations: The Federal rules restrict any use of the information to criminally investigate or prosecute any alcohol or drug abuse patient.[facility]In the event this information is protected by the Federal Confidentiality of Alcohol and Drug Abuse Patient Records regulations: The Federal rules restrict any use of the information to criminally investigate or prosecute any alcohol or drug abuse patient.[facility]In the event this information is protected by the Federal Confidentiality of Alcohol and Drug Abuse Patient Records regulations: The Federal rules restrict any use of the information to criminally investigate or prosecute any alcohol or drug abuse patient.[facility]In the event this information is protected by the Federal Confidentiality of Alcohol and Drug Abuse Patient Records regulations: The Federal rules restrict any use of the information to criminally investigate or prosecute any alcohol or drug abuse patient.[facility]In the event this information is protected by the Federal Confidentiality of Alcohol and Drug Abuse Patient Records regulations: The Federal rules restrict any use of the information to criminally investigate or prosecute any alcohol or drug abuse patient.[facility]In the event this information is protected by the Federal Confidentiality of Alcohol and Drug Abuse Patient Records regulations: The Federal rules restrict any use of the information to criminally investigate or prosecute any alcohol or drug abuse patient.[facility]In the event this information is protected by the Federal Confidentiality of Alcohol and Drug Abuse Patient Records regulations: The Federal rules restrict any use of the information to criminally investigate or prosecute any alcohol or drug abuse patient.[facility]In the event this information is protected by the Federal Confidentiality of Alcohol and Drug Abuse Patient Records regulations: The Federal rules restrict any use of the information to criminally investigate or prosecute any alcohol or drug abuse patient.[facility]In the event this information is protected by the Federal Confidentiality of Alcohol and Drug Abuse Patient Records regulations: The Federal rules restrict any use of the information to criminally investigate or prosecute any alcohol or drug abuse patient.[facility]In the event this information is protected by the Federal Confidentiality of Alcohol and Drug Abuse Patient Records regulations: The Federal rules restrict any use of the information to criminally investigate or prosecute any alcohol or drug abuse patient.[facility]In the event this information is protected by the Federal Confidentiality of Alcohol and Drug Abuse Patient Records regulations: The Federal rules restrict any use of the information to criminally investigate or prosecute any alcohol or drug abuse patient.[facility]In the event this information is protected by the Federal Confidentiality of Alcohol and Drug Abuse Patient Records regulations: The Federal rules restrict any use of the information to criminally investigate or prosecute any alcohol or drug abuse patient.[facility]In the event this information is protected by the Federal Confidentiality of Alcohol and Drug Abuse Patient Records regulations: The Federal rules restrict any use of the information to criminally investigate or prosecute any alcohol or drug abuse patient.[facility]In the event this information is protected by the Federal Confidentiality of Alcohol and Drug Abuse Patient Records regulations: The Federal rules restrict any use of the information to criminally investigate or prosecute any alcohol or drug abuse patient.[facility]In the event this information is protected by the Federal Confidentiality of Alcohol and Drug Abuse Patient Records regulations: The Federal rules restrict any use of the information to criminally investigate or prosecute any alcohol or drug abuse patient.[facility]In the event this information is protected by the Federal Confidentiality of Alcohol and Drug Abuse Patient Records regulations: The Federal rules restrict any use of the information to criminally investigate or prosecute any alcohol or drug abuse patient.[facility]In the event this information is protected by the Federal Confidentiality of Alcohol and Drug Abuse Patient Records regulations: The Federal rules restrict any use of the information to criminally investigate or prosecute any alcohol or drug abuse patient.[facility]In the event this information is protected by the Federal Confidentiality of Alcohol and Drug Abuse Patient Records regulations: The Federal rules restrict any use of the information to criminally investigate or prosecute any alcohol or drug abuse patient.[facility]In the event this information is protected by the Federal Confidentiality of Alcohol and Drug Abuse Patient Records regulations: The Federal rules restrict any use of the information to criminally investigate or prosecute any alcohol or drug abuse patient.[facility]In the event this information is protected by the Federal Confidentiality of Alcohol and Drug Abuse Patient Records regulations: The Federal rules restrict any use of the information to criminally investigate or prosecute any alcohol or drug abuse patient.[facility]In the event this information is protected by the Federal Confidentiality of Alcohol and Drug Abuse Patient Records regulations: The Federal rules restrict any use of the information to criminally investigate or prosecute any alcohol or drug abuse patient.[facility]In the event this information is protected by the Federal Confidentiality of Alcohol and Drug Abuse Patient Records regulations: The Federal rules restrict any use of the information to criminally investigate or prosecute any alcohol or drug abuse patient.[facility]In the event this information is protected by the Federal Confidentiality of Alcohol and Drug Abuse Patient Records regulations: The Federal rules restrict any use of the information to criminally investigate or prosecute any alcohol or drug abuse patient.[facility]In the event this information is protected by the Federal Confidentiality of Alcohol and Drug Abuse Patient Records regulations: The Federal rules restrict any use of the information to criminally investigate or prosecute any alcohol or drug abuse patient.[facility]In the event this information is protected by the Federal Confidentiality of Alcohol and Drug Abuse Patient Records regulations: The Federal rules restrict any use of the information to criminally investigate or prosecute any alcohol or drug abuse patient.[facility]In the event this information is protected by the Federal Confidentiality of Alcohol and Drug Abuse Patient Records regulations: The Federal rules restrict any use of the information to criminally investigate or prosecute any alcohol or drug abuse patient.[facility]In the event this information is protected by the Federal Confidentiality of Alcohol and Drug Abuse Patient Records regulations: The Federal rules restrict any use of the information to criminally investigate or prosecute any alcohol or drug abuse patient.[facility]In the event this information is protected by the Federal Confidentiality of Alcohol and Drug Abuse Patient Records regulations: The Federal rules restrict any use of the information to criminally investigate or prosecute any alcohol or drug abuse patient.[facility]In the event this information is protected by the Federal Confidentiality of Alcohol and Drug Abuse Patient Records regulations: The Federal rules restrict any use of the information to criminally investigate or prosecute any alcohol or drug abuse patient.[facility]In the event this information is protected by the Federal Confidentiality of Alcohol and Drug Abuse Patient Records regulations: The Federal rules restrict any use of the information to criminally investigate or prosecute any alcohol or drug abuse patient.[facility]In the event this information is protected by the Federal Confidentiality of Alcohol and Drug Abuse Patient Records regulations: The Federal rules restrict any use of the information to criminally investigate or prosecute any alcohol or drug abuse patient.[facility]In the event this information is protected by the Federal Confidentiality of Alcohol and Drug Abuse Patient Records regulations: The Federal rules restrict any use of the information to criminally investigate or prosecute any alcohol or drug abuse patient.[facility]In the event this information is protected by the Federal Confidentiality of Alcohol and Drug Abuse Patient Records regulations: The Federal rules restrict any use of the information to criminally investigate or prosecute any alcohol or drug abuse patient.[facility]In the event this information is protected by the Federal Confidentiality of Alcohol and Drug Abuse Patient Records regulations: The Federal rules restrict any use of the information to criminally investigate or prosecute any alcohol or drug abuse patient.[facility]In the event this information is protected by the Federal Confidentiality of Alcohol and Drug Abuse Patient Records regulations: The Federal rules restrict any use of the information to criminally investigate or prosecute any alcohol or drug abuse patient.[facility]In the event this information is protected by the Federal Confidentiality of Alcohol and Drug Abuse Patient Records regulations: The Federal rules restrict any use of the information to criminally investigate or prosecute any alcohol or drug abuse patient.[facility]In the event this information is protected by the Federal Confidentiality of Alcohol and Drug Abuse Patient Records regulations: The Federal rules restrict any use of the information to criminally investigate or prosecute any alcohol or drug abuse patient.[facility]In the event this information is protected by the Federal Confidentiality of Alcohol and Drug Abuse Patient Records regulations: The Federal rules restrict any use of the information to criminally investigate or prosecute any alcohol or drug abuse patient.[facility]In the event this information is protected by the Federal Confidentiality of Alcohol and Drug Abuse Patient Records regulations: The Federal rules restrict any use of the information to criminally investigate or prosecute any alcohol or drug abuse patient.[facility]In the event this information is protected by the Federal Confidentiality of Alcohol and Drug Abuse Patient Records regulations: The Federal rules restrict any use of the information to criminally investigate or prosecute any alcohol or drug abuse patient.[facility]In the event this information is protected by the Federal Confidentiality of Alcohol and Drug Abuse Patient Records regulations: The Federal rules restrict any use of the information to criminally investigate or prosecute any alcohol or drug abuse patient.[facility]In the event this information is protected by the Federal Confidentiality of Alcohol and Drug Abuse Patient Records regulations: The Federal rules restrict any use of the information to criminally investigate or prosecute any alcohol or drug abuse patient.[facility]In the event this information is protected by the Federal Confidentiality of Alcohol and Drug Abuse Patient Records regulations: The Federal rules restrict any use of the information to criminally investigate or prosecute any alcohol or drug abuse patient.[facility]In the event this information is protected by the Federal Confidentiality of Alcohol and Drug Abuse Patient Records regulations: The Federal rules restrict any use of the information to criminally investigate or prosecute any alcohol or drug abuse patient.[facility]In the event this information is protected by the Federal Confidentiality of Alcohol and Drug Abuse Patient Records regulations: The Federal rules restrict any use of the information to criminally investigate or prosecute any alcohol or drug abuse patient.[facility]In the event this information is protected by the Federal Confidentiality of Alcohol and Drug Abuse Patient Records regulations: The Federal rules restrict any use of the information to criminally investigate or prosecute any alcohol or drug abuse patient.[facility]In the event this information is protected by the Federal Confidentiality of Alcohol and Drug Abuse Patient Records regulations: The Federal rules restrict any use of the information to criminally investigate or prosecute any alcohol or drug abuse patient.[facility] HospitalIn the event this information is protected by the Federal Confidentiality of Alcohol and Drug Abuse Patient Records regulations: The Federal rules restrict any use of the information to criminally investigate or prosecute any alcohol or drug abuse patient.[facility] HospitalIn the event this information is protected by the Federal Confidentiality of Alcohol and Drug Abuse Patient Records regulations: The Federal rules restrict any use of the information to criminally investigate or prosecute any alcohol or drug abuse patient.[facility] HospitalIn the event this information is protected by the Federal Confidentiality of Alcohol and Drug Abuse Patient Records regulations: The Federal rules restrict any use of the information to criminally investigate or prosecute any alcohol or drug abuse patient.[facility] HospitalIn the event this information is protected by the Federal Confidentiality of Alcohol and Drug Abuse Patient Records regulations: The Federal rules restrict any use of the information to criminally investigate or prosecute any alcohol or drug abuse patient.[facility] HospitalIn the event this information is protected by the Federal Confidentiality of Alcohol and Drug Abuse Patient Records regulations: The Federal rules restrict any use of the information to criminally investigate or prosecute any alcohol or drug abuse patient.[facility] HospitalIn the event this information is protected by the Federal Confidentiality of Alcohol and Drug Abuse Patient Records regulations: The Federal rules restrict any use of the information to criminally investigate or prosecute any alcohol or drug abuse patient.[facility] HospitalIn the event this information is protected by the Federal Confidentiality of Alcohol and Drug Abuse Patient Records regulations: The Federal rules restrict any use of the information to criminally investigate or prosecute any alcohol or drug abuse patient.[facility] HospitalIn the event this information is protected by the Federal Confidentiality of Alcohol and Drug Abuse Patient Records regulations: The Federal rules restrict any use of the information to criminally investigate or prosecute any alcohol or drug abuse patient.[facility] HospitalIn the event this information is protected by the Federal Confidentiality of Alcohol and Drug Abuse Patient Records regulations: The Federal rules restrict any use of the information to criminally investigate or prosecute any alcohol or drug abuse patient.[facility] HospitalIn the event this information is protected by the Federal Confidentiality of Alcohol and Drug Abuse Patient Records regulations: The Federal rules restrict any use of the information to criminally investigate or prosecute any alcohol or drug abuse patient.[facility] HospitalIn the event this information is protected by the Federal Confidentiality of Alcohol and Drug Abuse Patient Records regulations: The Federal rules restrict any use of the information to criminally investigate or prosecute any alcohol or drug abuse patient.[facility] HospitalIn the event this information is protected by the Federal Confidentiality of Alcohol and Drug Abuse Patient Records regulations: The Federal rules restrict any use of the information to criminally investigate or prosecute any alcohol or drug abuse patient.[facility] HospitalIn the event this information is protected by the Federal Confidentiality of Alcohol and Drug Abuse Patient Records regulations: The Federal rules restrict any use of the information to criminally investigate or prosecute any alcohol or drug abuse patient.[facility] HospitalIn the event this information is protected by the Federal Confidentiality of Alcohol and Drug Abuse Patient Records regulations: The Federal rules restrict any use of the information to criminally investigate or prosecute any alcohol or drug abuse patient.[facility] HospitalIn the event this information is protected by the Federal Confidentiality of Alcohol and Drug Abuse Patient Records regulations: The Federal rules restrict any use of the information to criminally investigate or prosecute any alcohol or drug abuse patient.[facility] HospitalIn the event this information is protected by the Federal Confidentiality of Alcohol and Drug Abuse Patient Records regulations: The Federal rules restrict any use of the information to criminally investigate or prosecute any alcohol or drug abuse patient.[facility] HospitalIn the event this information is protected by the Federal Confidentiality of Alcohol and Drug Abuse Patient Records regulations: The Federal rules restrict any use of the information to criminally investigate or prosecute any alcohol or drug abuse patient.[facility] HospitalIn the event this information is protected by the Federal Confidentiality of Alcohol and Drug Abuse Patient Records regulations: The Federal rules restrict any use of the information to criminally investigate or prosecute any alcohol or drug abuse patient.[facility] HospitalIn the event this information is protected by the Federal Confidentiality of Alcohol and Drug Abuse Patient Records regulations: The Federal rules restrict any use of the information to criminally investigate or prosecute any alcohol or drug abuse patient.[facility] HospitalIn the event this information is protected by the Federal Confidentiality of Alcohol and Drug Abuse Patient Records regulations: The Federal rules restrict any use of the information to criminally investigate or prosecute any alcohol or drug abuse patient.[facility] HospitalIn the event this information is protected by the Federal Confidentiality of Alcohol and Drug Abuse Patient Records regulations: The Federal rules restrict any use of the information to criminally investigate or prosecute any alcohol or drug abuse patient.[facility] HospitalIn the event this information is protected by the Federal Confidentiality of Alcohol and Drug Abuse Patient Records regulations: The Federal rules restrict any use of the information to criminally investigate or prosecute any alcohol or drug abuse patient.[facility] HospitalIn the event this information is protected by the Federal Confidentiality of Alcohol and Drug Abuse Patient Records regulations: The Federal rules restrict any use of the information to criminally investigate or prosecute any alcohol or drug abuse patient.[facility] HospitalIn the event this information is protected by the Federal Confidentiality of Alcohol and Drug Abuse Patient Records regulations: The Federal rules restrict any use of the information to criminally investigate or prosecute any alcohol or drug abuse patient.[facility] HospitalIn the event this information is protected by the Federal Confidentiality of Alcohol and Drug Abuse Patient Records regulations: The Federal rules restrict any use of the information to criminally investigate or prosecute any alcohol or drug abuse patient.[facility] HospitalIn the event this information is protected by the Federal Confidentiality of Alcohol and Drug Abuse Patient Records regulations: The Federal rules restrict any use of the information to criminally investigate or prosecute any alcohol or drug abuse patient.[facility] HospitalIn the event this information is protected by the Federal Confidentiality of Alcohol and Drug Abuse Patient Records regulations: The Federal rules restrict any use of the information to criminally investigate or prosecute any alcohol or drug abuse patient.[facility] HospitalIn the event this information is protected by the Federal Confidentiality of Alcohol and Drug Abuse Patient Records regulations: The Federal rules restrict any use of the information to criminally investigate or prosecute any alcohol or drug abuse patient.[facility] HospitalIn the event this information is protected by the Federal Confidentiality of Alcohol and Drug Abuse Patient Records regulations: The Federal rules restrict any use of the information to criminally investigate or prosecute any alcohol or drug abuse patient.[facility] HospitalIn the event this information is protected by the Federal Confidentiality of Alcohol and Drug Abuse Patient Records regulations: The Federal rules restrict any use of the information to criminally investigate or prosecute any alcohol or drug abuse patient.[facility] HospitalIn the event this information is protected by the Federal Confidentiality of Alcohol and Drug Abuse Patient Records regulations: The Federal rules restrict any use of the information to criminally investigate or prosecute any alcohol or drug abuse patient.[facility] HospitalIn the event this information is protected by the Federal Confidentiality of Alcohol and Drug Abuse Patient Records regulations: The Federal rules restrict any use of the information to criminally investigate or prosecute any alcohol or drug abuse patient.[facility] HospitalIn the event this information is protected by the Federal Confidentiality of Alcohol and Drug Abuse Patient Records regulations: The Federal rules restrict any use of the information to criminally investigate or prosecute any alcohol or drug abuse patient.[facility] Reason for Visit (unrecogniz ed section and content) Reason Comments Follow Up Specialty Diagnoses / Procedures Referred By Matias vaughan Referred To Contact Diagnoses Encounter for long-term (current) use of medications Procedures OFFICE/OUTPATIENT NEW HIGH MDM 60 MINUTES Clatyon Granados, ICE CREAM VAN VENDOR.DIRECTOR OF CLOUD SERVICES [address] [place] [address] Phone: tel: fax: Referral ID Status Reason Start Date Expiration Date V isits Requested Visits Authorized [id number] Closed PCP Requested Referral 01/11/2025 01/11/2026 1 1 Reason Comments Follow Up Specialty Diagnoses / Procedures Referred By Matias vaughan Referred To Contact Psychiatry / ADULT PSYCHIATRY Diagnoses med check Procedures VIDEO PSYC/PSYL EST Clayton Granados, ICE CREAM VAN VENDOR.DIRECTOR OF CLOUD SERVICES [address] [place] [address] Clayton Granados, ICE CREAM VAN VENDOR.DIRECTOR OF CLOUD SERVICES [address] [place] [address] Referral ID Status Reason Start Date Expiration Date V isits Requested Visits Authorized [id number] New Request 05/18/2024 08/16/2024 [address] Reason Comments Results 10/10 Reason Comments New Patient Evaluation Specialty Diagnoses / Procedures Referred By Contac t Referred To Contact Diagnoses Panic attacks Bipolar affective disorder, current episode mixed, current episode severity unspecified (HCC) Depressive disorder Procedures CONSULT TO PSYCHIATRY OFFICE/OUTPATIENT NEW HIGH MDM 60-74 MINUTES Fredrick Boland, DO [address] [place] [address] Referral ID Status Reason Start Date Expiration Date Visits Requested Visits Authorized [id number] Pending Review PCP Requested Referral 07/20/2021 07/20/2022 [...] ECT Referral 08/24/2022 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 Date Comments 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 10/01/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 ECT Reason Comments Patient [...] questions, please feel call Yuri Salcedo at [phone] Reason Comments Transition Of Care Reason Comments [...] Care Teams (unrecognized sec tion and content) Wildlife Biologist Relationship Specialty Start Date End Date Fredrick Boland DO [address] [place], [place] [id number] PCP - General Family Practice 10/29/15 Wildlife Biologist Relationship Specialty Start Date End Date Fredrick Boland DO [address] [place], [place] [id number] PCP - General Family Practice 10/29/15 Wildlife Biologist Relationship Specialty Start Date End Date Fredrick Boland, DO [address] [place] [address] PCP - General Family Practice 10/29/15 Wildlife Biologist Relationship Specialty Start Date End Date Fredrick Boland, DO [address] [place] [address] PCP - General Family Practice 10/29/15 Wildlife Biologist Relationship Specialty Start Date End Date Fredrick Boland, DO [address] [place] [address] PCP - General Family Practice 10/29/15 Wildlife Biologist Relationship Specialty Start Date End Date Fredrick Boland, DO [address] [place] [address] PCP - General Family Practice 10/29/15 Wildlife Biologist Relationship Specialty Start Date End Date Fredrick Boland, DO [address] [place] [address] PCP - General Family Practice 10/29/15 Wildlife Biologist Relationship Specialty Start Date End Date Fredrick Boland, DO [address] [place] [address] PCP - General Family Practice 10/29/15 Wildlife Biologist Relationship Specialty Start Date End Date Fredrick Boland, DO [address] [place] [address] PCP - General Family Practice 10/29/15 Wildlife Biologist Relationship Specialty Start Date End Date Fredrick Boland, DO [address] [place] [address] PCP - General Family Practice 10/29/15 Wildlife Biologist Relationship Specialty Start Date End Date Fredrick Boland, DO [address] [place] [address] PCP - General Family Practice 10/29/15 Wildlife Biologist Relationship Specialty Start Date End Date Fredrick Boland, DO [address] [place] [address] PCP - General Family Practice 10/29/15 Wildlife Biologist Relationship Specialty Start Date End Date Fredrick Boland, DO [address] [place] [address] PCP - General Family Practice 10/29/15 Wildlife Biologist Relationship Specialty Start Date End Date Fredrick Boland, DO [address] [place] [address] PCP - General Family Practice 10/29/15 Wildlife Biologist Relationship Specialty Start Date End Date Fredrick Boland, DO [address] [place] [address] PCP - General Family Medicine 10/29/15 Wildlife Biologist Relationship Specialty Start Date End Date Fredrick Boland, DO [address] [place] [address] PCP - General Family Medicine 10/29/15 Wildlife Biologist Relationship Specialty Start Date End Date Fredrick Boland, DO [address] [place] [address] PCP - General Family Medicine 10/29/15 Wildlife Biologist Relationship Specialty Start Date End Date Fredrick Boland, DO [address] [place] [address] PCP - General Family Medicine 10/29/15 Wildlife Biologist Relationship Specialty Start Date End Date Fredrick Boland, DO [address] [place] [address] PCP - General Family Medicine 10/29/15 Wildlife Biologist Relationship Specialty Start Date End Date Fredrick Boland, DO [address] [place] [address] PCP - General Family Medicine 10/29/15 Wildlife Biologist Relationship Specialty Start Date End Date Fredrick Boland, DO [address] [place] [address] PCP - General Family Medicine 10/29/15 Wildlife Biologist Relationship Specialty Start Date End Date Fredrick Boland, DO [address] [place] [address] PCP - General Family Medicine 10/29/15 Wildlife Biologist Relationship Specialty Start Date End Date Fredrick Boland, DO [address] [place] [address] PCP - General Family Medicine 10/29/15 Wildlife Biologist Relationship Specialty Start Date End Date Fredrick Boland, DO [address] [place] [address] PCP - General Family Medicine 10/29/15 Wildlife Biologist Relationship Specialty Start Date End Date Fredrick Boland, DO [address] [place] [address] PCP - General Family Medicine 10/29/15 Ariella Cortes, RN Registered Nurse Psychiatry 08/30/22 Wildlife Biologist Relationship Specialty Start Date End Date Fredrick Boland, DO [address] [place] [address] PCP - General Family Medicine 10/29/15 Areilla Cortes, RN Registered Nurse Psychiatry 08/30/22 Wildlife Biologist Relationship Specialty Start Date End Date Fredrick Boland, DO [address] [place] [address] PCP - General Family Medicine 10/29/15 Ariella Cortes, RN Registered Nurse Psychiatry 08/30/22 Wildlife Biologist Relationship Specialty Start Date End Date Fredrick Boland, DO [address] [facility] [place] [address] PCP - General Family Medicine 10/29/15 Ariella Cortes, RN Registered Nurse Psychiatry 08/30/22 Wildlife Biologist Relationship Specialty Start Date End Date Fredrick Boland, DO [address] [place] [address] PCP - General Family Medicine 10/29/15 Ariella Cortes, RN Registered Nurse Psychiatry 08/30/22 Wildlife Biologist Relationship Specialty Start Date End Date Fredrick Boland, DO [address] [facility] [place] [address] PCP - General Family Medicine 10/29/15 Ariella Cortes RN Registered Nurse Psychiatry 08/30/22 Wildlife Biologist Relationship Specialty Start Date End Date Fredrick Boland DO [address] [facility] [place] [address] PCP - General Family Medicine 10/29/15 Ariella Cortes, RN Registered Nurse Psychiatry 08/30/22 Wildlife Biologist Relationship Specialty Start Date End Date Fredrick Boland DO [address] [facility] [place] [address] PCP - General Family Medicine 10/29/15 Ariella Cortes, RN Registered Nurse Psychiatry 08/30/22 Wildlife Biologist Relationship Specialty Start Date End Date Fredrick Boland DO [address] [facility] [place] [address] PCP - General Family Medicine 10/29/15 Ariella Cortes, RN Registered Nurse Psychiatry 08/30/22 Wildlife Biologist Relationship Specialty Start Date End Date Fredrick Boland DO [address] [facility] [place] [address] PCP - General Family Medicine 10/29/15 Ariella Cortes, RN Registered Nurse Psychiatry 08/30/22 Wildlife Biologist Relationship Specialty Start Date End Date Fredrick Boland DO [address] [place] [address] PCP - General Family Medicine 10/29/15 Ariella Cortes RN Registered Nurse Psychiatry 08/30/22 Wildlife Biologist Relationship Specialty Start Date End Date Fredrick Boland DO [address] [place] [address] PCP - General Family Medicine 10/29/15 Ariella Cortes RN Registered Nurse Psychiatry 08/30/22 Wildlife Biologist Relationship Specialty Start Date End Date Fredrick Boland DO [address] [place] [address] PCP - General Family Medicine 10/29/15 Ariella Cortes, RN Registered Nurse Psychiatry 08/30/22 Wildlife Biologist Relationship Specialty Start Date End Date Fredrick Boland DO [address] [place] [address] PCP - General Family Medicine 10/29/15 Ariella Cortes, RN Registered Nurse Psychiatry 08/30/22 Wildlife Biologist Relationship Specialty Start Date End Date Fredrick Boland DO [address] [place] [address] PCP - General Family Medicine 10/29/15 Ariella Cortes RN Registered Nurse Psychiatry 08/30/22 Wildlife Biologist Relationship Specialty Start Date End Date Fredrick Boland DO [address] [facility] [place] [address] PCP - General Family Medicine 10/29/15 Ariella Cortes, RN Registered Nurse Psychiatry 08/30/22 Wildlife Biologist Relationship Specialty Start Date End Date Fredrick Boland DO [address] [place] [address] PCP - General Family Medicine 10/29/15 Ariella Cortes, RN Registered Nurse Psychiatry 08/30/22 Wildlife Biologist Relationship Specialty Start Date End Date Fredrick Boland DO [address] [place] [address] PCP - General Family Medicine 10/29/15 Ariella Cortes, RN Registered Nurse Psychiatry 08/30/22 Wildlife Biologist Relationship Specialty Start Date End Date Fredrick Boland DO [address] [facility] [place] [address] PCP - General Family Medicine 10/29/15 Ariella Cortes RN Registered Nurse Psychiatry 08/30/22 Wildlife Biologist Relationship Specialty Start Date End Date Fredrick Boland DO [address] [facility] [place] [address] PCP - General Family Medicine 10/29/15 Ariella Cortes, RN Registered Nurse Psychiatry 08/30/22 Wildlife Biologist Relationship Specialty Start Date End Date Fredrick Boland DO [address] [facility] [place] [address] PCP - General Family Medicine 10/29/15 Wildlife Biologist Relationship Specialty Start Date End Date Fredrick Boland DO [address] [facility] [place] [address] PCP - General Family Medicine 10/29/15 Ariella Cortes, RN Registered Nurse Psychiatry 08/30/22 Wildlife Biologist Relationship Specialty Start Date End Date Fredrick Boland DO [address] [facility] [place] [address] PCP - General Family Medicine 10/29/15 Ariella Cortes, RN Registered Nurse Psychiatry 08/30/22 Yesenia Rangel, ICE CREAM VAN VENDOR.DIRECTOR OF CLOUD SERVICES [address] [place] [address] [facility] 06/03/24 MarilinXochilt, ICE CREAM VAN VENDOR.DIRECTOR OF CLOUD SERVICES [address] [facility] [place] [address] [facility] 06/03/24 Wildlife Biologist Relationship Specialty Start Date End Date Fredrick Boland DO [address] [place] [address] PCP - General Family Medicine 10/29/15 Ariella Cortes, RN Registered Nurse Psychiatry 08/30/22 Yesenia Rangel, ICE CREAM VAN VENDOR.DIRECTOR OF CLOUD SERVICES [address] [place] [address] [facility] 06/03/24 MarilinXochilt, ICE CREAM VAN VENDOR.DIRECTOR OF CLOUD SERVICES [address] [place] [address] [facility] 06/03/24 Wildlife Biologist Relationship Specialty Start Date End Date Fredrick Boland DO [address] [place] [address] PCP - General Family Medicine 10/29/15 Ariella Cortes, RN Registered Nurse Psychiatry 08/30/22 08/07/24 Yesenia Rangel, ICE CREAM VAN VENDOR.DIRECTOR OF CLOUD SERVICES [address] [facility] [place] [address] [facility] 06/03/24 MarilinXochilt, ICE CREAM VAN VENDOR.DIRECTOR OF CLOUD SERVICES [address] [place] [address] [facility] 06/03/24 Wildlife Biologist Relationship Specialty Start Date End Date Fredrick Boland DO [address] [place] [address] PCP - General Family Medicine 10/29/15 Yesenia Rangel, ICE CREAM VAN VENDOR.DIRECTOR OF CLOUD SERVICES [address] [place] [address] [facility] 06/03/24 MarilinXochilt, ICE CREAM VAN VENDOR.DIRECTOR OF CLOUD SERVICES [address] [place] [address] [facility] 06/03/24 Wildlife Biologist Relationship Specialty Start Date End Date Fredrick Boland DO [address] [place] [address] PCP - General Family Medicine 10/29/15 Yesenia Rangel, ICE CREAM VAN VENDOR.DIRECTOR OF CLOUD SERVICES [address] [place] [address] [facility] 06/03/24 MarilinXochilt, ICE CREAM VAN VENDOR.DIRECTOR OF CLOUD SERVICES [address] [place] [address] [facility] Wildlife Biologist Relationship Specialty Start Date End Date Fredrick Boland DO [address] [place] [address] PCP - General Family Medicine 10/29/15 Yesenia Rangel, ICE CREAM VAN VENDOR.DIRECTOR OF CLOUD SERVICES [address] [facility] [place] [address] [facility] 06/03/24 [facility], ICE CREAM VAN VENDOR.DIRECTOR OF CLOUD SERVICES [address] [place] [address] [facility] 06/03/24 Wildlife Biologist Relationship Specialty Start Date End Date Fredrick Boland DO [address] [place] [address] PCP - General Family Medicine 10/29/15 Yesenia Rangel, ICE CREAM VAN VENDOR.DIRECTOR OF CLOUD SERVICES [address] [place] [address] [facility] 06/03/24 [facility], ICE CREAM VAN VENDOR.DIRECTOR OF CLOUD SERVICES [address] [place] [address] [facility] 06/03/24 Wildlife Biologist Relationship Specialty Start Date End Date Fredrick Boland DO [address] [place] [address] PCP - General Family Medicine 10/29/15 Yesenia Rangel, ICE CREAM VAN VENDOR.DIRECTOR OF CLOUD SERVICES [address] [place] [address] [facility] 06/03/24 [facility], ICE CREAM VAN VENDOR.DIRECTOR OF CLOUD SERVICES [address] [place] [address] [facility] 06/03/24 Wildlife Biologist Relationship Specialty Start Date End Date Fredrick Boland DO [address] [place] [address] PCP - General Family Medicine 10/29/15 Yesenia Rangel, ICE CREAM VAN VENDOR.DIRECTOR OF CLOUD SERVICES [address] [facility] [place] [address] [facility] 06/03/24 Xochilt Gaston, ICE CREAM VAN VENDOR.DIRECTOR OF CLOUD SERVICES [address] [place] [address] [facility] 06/03/24 Wildlife Biologist Relationship Specialty Start Date End Date Fredrick Boland DO [address] [facility] [place] [address] PCP - General Family Medicine 10/29/15 Yesenia Rangel, ICE CREAM VAN VENDOR.DIRECTOR OF CLOUD SERVICES [address] [facility] [place] [address] [facility] 06/03/24 MarilinXochilt, ICE CREAM VAN VENDOR.DIRECTOR OF CLOUD SERVICES [address] [facility] [place] [address] [facility] [facility] 06/03/24 Wildlife Biologist Relationship Specialty Start Date End Date Fredrick Boland DO [address] [facility] [place] [address] PCP - General Family Medicine 10/29/15 Yesenia Rangel, ICE CREAM VAN VENDOR.DIRECTOR OF CLOUD SERVICES [address] [facility] [place] [address] [facility] Xochilt Gaston, ICE CREAM VAN VENDOR.DIRECTOR OF CLOUD SERVICES [address] [facility] [place] [address] Tie Bucker Family [facility] 06/03/24 Wildlife Biologist Relationship Specialty Start Date End Date Fredrick Boland DO [address] [place] [address] PCP - General Family Medicine 10/29/15 Yesenia Rangel, ICE CREAM VAN VENDOR.DIRECTOR OF CLOUD SERVICES [address] [place] [address] [facility] 06/03/24 MarilinXochilt, ICE CREAM VAN VENDOR.DIRECTOR OF CLOUD SERVICES [address] [place] [address] [facility] 06/03/24 Wildlife Biologist Relationship Specialty Start Date End Date Fredrick Boland DO [address] [place] [address] PCP - General Family Medicine 10/29/15 Yesenia Rangel, ICE CREAM VAN VENDOR.DIRECTOR OF CLOUD SERVICES [address] [place] [address] [facility] 06/03/24 Xochilt Gaston, ICE CREAM VAN VENDOR.DIRECTOR OF CLOUD SERVICES [address] [place] [address] Tie Bucker Family [facility] 06/03/24 Wildlife Biologist Relationship Specialty Start Date End Date Fredrick Boland DO [address] [place] [address] PCP - General Family Medicine 10/29/15 Xochilt Gaston, ICE CREAM VAN VENDOR.DIRECTOR OF CLOUD SERVICES [address] [place] [address] [facility] 06/03/24 Wildlife Biologist Relationship Specialty Start Date End Date Fredrick Boland DO [address] [place] [address] PCP - General Family Medicine 10/29/15 Yesenia Rangel, ICE CREAM VAN VENDOR.DIRECTOR OF CLOUD SERVICES [address] [place] [address] Tie Bucker Family [facility] 06/03/24 09/14/24 Xochilt Gaston, ICE CREAM VAN VENDOR.DIRECTOR OF CLOUD SERVICES [address] [place] [address] [facility] 06/03/24 Wildlife Biologist Relationship Specialty Start Date End Date Fredrick Boland DO [address] [place] [address] PCP - General Family Medicine 10/29/15 Yesenia Rangel, ICE CREAM VAN VENDOR.DIRECTOR OF CLOUD SERVICES [address] [place] [address] [facility] 06/03/24 09/14/24 Xochilt Gaston, ICE CREAM VAN VENDOR.DIRECTOR OF CLOUD SERVICES [address] [place] [address] [facility] 06/[facility] Wildlife Biologist Relationship Specialty Start Date End Date Fredrick Boland DO [address] [place] [address] PCP - General Family Medicine 10/29/15 Xochilt Gaston, ICE CREAM VAN VENDOR.DIRECTOR OF CLOUD SERVICES [address] [place] [address] [facility] 06/03/24 Maggie Putnam MD [address] [place] [address] Internal Medicine 10/02/24 Wildlife Biologist Relationship Specialty Start Date End Date Fredrick Boland DO [address] [place] [address] PCP - General Family Medicine 10/29/15 Xochilt Gaston, ICE CREAM VAN VENDOR.DIRECTOR OF CLOUD SERVICES [address] [facility] [place] [address] Tie Bucker [facility] 06/03/24 Maggie Putnam MD [address] [place] [address] Internal Medicine 10/02/24 Wildlife Biologist Relationship Specialty Start Date End Date Fredrick Boland DO [address] [facility] [place] [address] PCP - General Family Medicine 10/29/15 Xochilt Gaston, ICE CREAM VAN VENDOR.DIRECTOR OF CLOUD SERVICES [address] [place] [address] [facility] 06/03/24 Maggie Putnam MD [address] [place] [address] Internal Medicine 10/02/24 Wildlife Biologist Relationship Specialty Start Date End Date Fredrick Boland DO [address] [place] [address] PCP - General Family Medicine 10/29/15 Xochilt Gaston, ICE CREAM VAN VENDOR.DIRECTOR OF CLOUD SERVICES [address] [place] [address] [facility] 06/03/24 Maggie Putnam MD [address] [place] [address] Internal Medicine 10/02/24 Wildlife Biologist Relationship Specialty Start Date End Date Fredrick Boland DO [address] [place], [place] 437931 PCP - General Family Medicine 10/29/15 [facility], ICE CREAM VAN VENDOR.DIRECTOR OF CLOUD SERVICES [address] [place], [place] 401147 [phone] [facility] 06/03/24 Maggie Putnam MD [address] [place] [address] Internal Medicine 10/02/24 Wildlife Biologist Relationship Specialty Start Date End Date Fredrick Boland DO [address] [place], [place] 363811 PCP - General Family Medicine 10/29/15 [facility], ICE CREAM VAN VENDOR.DIRECTOR OF CLOUD SERVICES [address] [place] [address] [facility] 06/03/24 Maggie Putnam MD [address] [place] [address] Internal Medicine 10/02/24 Larry Betancourt MD Tie Bucker 10/12/24 10/26/24 Wildlife Biologist Relationship Specialty Start Date End Date Fredrick Boland DO [address] [place], [place] 196401 PCP - General Family Medicine 10/29/15 Xochilt Gaston, ICE CREAM VAN VENDOR.DIRECTOR OF CLOUD SERVICES [address] [place] [address] Tie Bucker Family [facility] 06/03/24 Maggie Putnam MD [address] [place] [address] Internal Medicine 10/02/24 Wildlife Biologist Relationship Specialty Start Date End Date Fredrick Boland DO [address] [place], [place] 881651 PCP - General Family Medicine 11/28/24 Xochilt Gaston, ICE CREAM VAN VENDOR.DIRECTOR OF CLOUD SERVICES [address] [place] [address] [facility] 06/03/24 Maggie Putnam MD [address] [place] [address] Internal Medicine 10/02/24 Lee Lou MD [address] [place] [address] Night Coverage Internal Medicine 11/28/24 11/28/24 Wildlife Biologist Relationship Specialty Start Date End Date Xochilt Gaston, ICE CREAM VAN VENDOR.DIRECTOR OF CLOUD SERVICES [address] [place] [address] [facility] 06/03/24 Maggie Putnam MD [address] [place] [address] Internal Medicine 10/02/24 Wildlife Biologist Relationship Specialty Start Date End Date Fredrick Boland DO [address] [place] [address] PCP - General Family Medicine 11/28/24 Xochilt Gaston, ICE CREAM VAN VENDOR.DIRECTOR OF CLOUD SERVICES [address] [place] [address] Tie Bucker Family [facility] 06/03/24 Maggie Putnam MD [address] [place] [address] Internal Medicine 10/02/24 Ed Saxena, ICE CREAM VAN VENDOR.DIRECTOR OF CLOUD SERVICES [address] [place] [address] [facility] 12/10/24 Wildlife Biologist Relationship Specialty Start Date End Date Fredrick Boland DO [address] [place] [address] PCP - General Family Medicine 11/28/24 Xochilt Gaston, ICE CREAM VAN VENDOR.DIRECTOR OF CLOUD SERVICES [address] [place] [address] Tie Bucker Family [facility] 06/03/24 Maggie Putnam MD [address] [place] [address] Internal Medicine 10/02/24 Ed Saxena, ICE CREAM VAN VENDOR.DIRECTOR OF CLOUD SERVICES [address] [place] [address] [facility] Family [facility] 12/10/24 Keesha June [facility] [address] [place] [address] Transitional Care Pharmacist Pharmacy 12/20/24 03/21/25 Wildlife Biologist Relationship Specialty Start Date End Date Fredrick Boland DO [address] [place] [address] PCP - General Family Medicine 11/28/24 Xochilt Gaston, ICE CREAM VAN VENDOR.DIRECTOR OF CLOUD SERVICES [address] [place] [address] [facility] 06/03/24 Maggie Putnam MD [address] [place] [address] Internal Medicine 10/02/24 Ed Saxena, ICE CREAM VAN VENDOR.DIRECTOR OF CLOUD SERVICES [address] [place] [address] [facility] 12/10/24 Mounika Trent, [place] [address] Transitional Care Pharmacist Pharmacy 12/21/24 03/21/25 Wildlife Biologist Relationship Specialty Start Date End Date Fredrick Boland DO [address] [place] [address] PCP - General Family Medicine 11/28/24 MarilinXochilt, ICE CREAM VAN VENDOR.DIRECTOR OF CLOUD SERVICES [address] [place] [address] [facility] 06/03/24 Maggie Putnam MD [address] [place] [address] Internal Medicine 10/02/24 Ed Saxena APRN.DIRECTOR OF CLOUD SERVICES [address] [place] [address] [facility] 12/10/24 Mounika Trent, [facility] [address] [place] [address] Transitional Care Pharmacist Pharmacy 12/21/24 03/21/25 Wildlife Biologist Relationship Specialty Start Date End Date Fredrick Boland DO [address] [place] [address] PCP - General Family Medicine 11/28/24 Xochilt Gaston, ICE CREAM VAN VENDOR.DIRECTOR OF CLOUD SERVICES [address] [place] [address] [facility] 06/03/24 Maggie Putnam MD [address] [place] [address] Internal Medicine 10/02/24 Ed Saxena, ICE CREAM VAN VENDOR.DIRECTOR OF CLOUD SERVICES [address] [place] [address] [facility] 12/10/24 Mounika Trent, [facility] [address] [place] [address] Transitional Care Pharmacist Pharmacy 12/21/24 03/21/25 Wildlife Biologist Relationship Specialty Start Date End Date Fredrick Boland DO [address] [place] [address] PCP - General Family Medicine 11/28/24 Xochilt Gaston, ICE CREAM VAN VENDOR.DIRECTOR OF CLOUD SERVICES [facility] [place] [address] Tie Bucker Family [facility] 06/03/24 Magige Putnam MD [address] [place] [address] Internal Medicine 10/02/24 Ed Saxena, ICE CREAM VAN VENDOR.DIRECTOR OF CLOUD SERVICES [address] [place] [address] [facility] 12/10/[address] [address] Transitional Care Pharmacist Pharmacy 12/21/24 03/21/25 Wildlife Biologist Relationship Specialty Start Date End Date Fredrick Boland DO [address] [place] [address] PCP - General Family Medicine 11/28/24 Xochilt Gaston, ICE CREAM VAN VENDOR.DIRECTOR OF CLOUD SERVICES [address] [place] [address] [facility] Family [facility] 06/03/24 Maggie Putnam MD [address] [place] [address] Internal Medicine 10/02/24 Ed Saxena, ICE CREAM VAN VENDOR.DIRECTOR OF CLOUD SERVICES [address] [place] [address] [facility] 12/10/[address] [address] Transitional Care Pharmacist Pharmacy 12/21/24 03/21/25 Wildlife Biologist Relationship Specialty Start Date End Date Fredrick Boland DO [address] [place] [address] PCP - General Family Medicine 11/28/24 Xochilt Gasotn, ICE CREAM VAN VENDOR.DIRECTOR OF CLOUD SERVICES [address] [place] [address] T[facility] B[facility] Family [facility] 06/03/24 Maggie Putnam MD [address] [place] [address] 269624 Internal Medicine 10/02/24 Ed Saxena, ICE CREAM VAN VENDOR.DIRECTOR OF CLOUD SERVICES [address] [place] [address] [facility] 12/10/24 [facility] [address] [place], [place] 4[address] Transitional Care Pharmacist Pharmacy 12/21/24 03/21/25 Wildlife Biologist Relationship Specialty Start Date End Date Fredrick Boland DO [address] [place] [address] PCP - General Family Medicine 11/28/24 Xochilt Gaston, ICE CREAM VAN VENDOR.DIRECTOR OF CLOUD SERVICES [address] [place] [address] T[facility] B[facility] Family [facility] 06/03/24 Maggie Putnam MD [address] [place] [address] Internal Medicine 10/02/24 Ed Saxena ICE CREAM VAN VENDOR.DIRECTOR OF CLOUD SERVICES [address] [place] [address] [facility] 12/10/[address] [address] Transitional Care Pharmacist Pharmacy 12/21/24 03/21/25 Wildlife Biologist Relationship Specialty Start Date End Date Fredrick Boland DO [facility] [place] [address] PCP - General Family Medicine 11/28/24 Xochilt Gaston, KAIN.DIRECTOR OF CLOUD SERVICES [address] [place] [address] [facility] 06/03/24 Maggie Putnam MD [address] [place] [address] Internal Medicine 10/02/24 Ed Saxena ICE CREAM VAN VENDOR.DIRECTOR OF CLOUD SERVICES [address] [place] [address] [facility] Family [facility] 12/10/24 [facility] [address] [place] [address] Transitional Care Pharmacist Pharmacy 12/21/24 03/21/25 Wildlife Biologist Relationship Specialty Start Date End Date Fredrick Boland DO [address] [place] [address] PCP - General Family Medicine 11/28/24 Xochilt Gaston, ICE CREAM VAN VENDOR.DIRECTOR OF CLOUD SERVICES [facility] [place] [address] Tie Bucker Family [facility] 06/03/24 Maggie Putnam MD [address] [place] [address] Internal Medicine 10/02/24 Ed Saxena, ICE CREAM VAN VENDOR.DIRECTOR OF CLOUD SERVICES [address] [place] [address] [phone] Tie Bucker Family [facility] 12/10/[address] [address] Transitional Care Pharmacist Pharmacy 12/21/24 03/21/25 Wildlife Biologist Relationship Specialty Start Date End Date Fredrick Boland DO [address] [place] [address] [id number] PCP - General Family Medicine 11/28/24 Xochilt Gaston, ICE CREAM VAN VENDOR.DIRECTOR OF CLOUD SERVICES [address] [place] [address] 016061 [facility] 06/03/24 Maggie Putnam MD [address] [place] [address]99 Internal Medicine 10/02/24 Ed Saxena, ICE CREAM VAN VENDOR.DIRECTOR OF CLOUD SERVICES [address] [place] [address] Tie B[facility] Family [facility] 12/10/24 [facility] [address] [place] [address] Transitional Care Pharmacist Pharmacy 12/21/24 03/21/25 Wildlife Biologist Relationship Specialty Start Date End Date Fredrick Boland DO [address] [place] [address] PCP - General Family Medicine 11/28/24 Xochilt Gaston, KAIN.DIRECTOR OF CLOUD SERVICES [address] [place] [address] [facility] 06/03/24 Maggie Putnam MD [address] [place] [address] Internal Medicine 10/02/24 Ed Saxena, KAIN.DIRECTOR OF CLOUD SERVICES [address] [place] [address] Tie Bucker Family [facility] 12/10/24 [facility] [address] [place], [place] 4606[address] Transitional Care Pharmacist Pharmacy 12/21/24 03/21/25 Wildlife Biologist Relationship Specialty Start Date End Date Fredrick Boland DO [address] [place] [address] PCP - General Family Medicine 11/28/24 Xochilt Gaston, ICE CREAM VAN VENDOR.DIRECTOR OF CLOUD SERVICES [address] [place] [address] [facility] 06/03/24 Maggie Putnam MD [address] [place] [address] Internal Medicine 10/02/24 Ed Saxena ICE CREAM VAN VENDOR.DIRECTOR OF CLOUD SERVICES [address] [place] [address] [facility] 12/10/24 [facility] [address] [place] [address] Transitional Care Pharmacist Pharmacy 12/21/24 03/21/25 Wildlife Biologist Relationship Specialty Start Date End Date Fredrick Boland DO [address] [place] [address] PCP - General Family Medicine 11/28/24 Xochilt Gaston APRN.DIRECTOR OF CLOUD SERVICES [address] [place] [address] [facility] 06/03/24 Maggie Putnam MD [address] [place], [place] [phone] Internal Medicine 10/02/24 Ed Saxena APRN.DIRECTOR OF CLOUD SERVICES [address] [place] [address] Tie Bucker Family [facility] 12/10/24 [facility] [address] [place] [address] Transitional Care Pharmacist Pharmacy 12/21/24 03/21/25 Stephie Montoya MD [address] [place] [address] [facility] Provider Gastroenterology 01/22/25 Stephie Montoya MD [address] [place] [address] Home Parenteral Nutrition Provider Gastroenterology 01/22/25 Wildlife Biologist Relationship Specialty Start Date End Date Fredrick Boland DO [address] [place], [place] 923231 PCP - General Family Medicine 11/28/24 Xochilt Gaston APRN.DIRECTOR OF CLOUD SERVICES [address] [place], [place] 008411 T[facility] Family [facility] 06/03/24 Maggie Putnam MD [address] [place] [address] Internal Medicine 10/02/24 Ed Saxena APRN.DIRECTOR OF CLOUD SERVICES [address] [place], [place] 015121 Tie Bucker [facility] 12/10/24 [facility] [address] [place] [address] Transitional Care Pharmacist Pharmacy 12/21/24 03/21/25 Stephie Montoya MD [address] [place] [phone] [facility] Provider Gastroenterology 01/22/25 Stephie Montoya MD [address] [place] [address] Home Parenteral Nutrition Provider Gastroenterology 01/22/25 Wildlife Biologist Relationship Specialty Start Date End Date Fredrick Boland DO [address] [place] [address] PCP - General Family Medicine 11/28/24 Xochilt Gaston APRN.DIRECTOR OF CLOUD SERVICES [address] [place], [place] 527481 [facility] Family [facility] 06/03/24 Maggie Putnam MD [address] [place] [address]28 Internal Medicine 10/02/24 Ed Saxena APRN.DIRECTOR OF CLOUD SERVICES [address] [place] [address] [phone] Tie Bucker [facility] 12/10/24 [facility] [address] [place] [address] Transitional Care Pharmacist Pharmacy 12/21/24 03/21/25 [place] [address] [place], [place] 2444[address] [facility] Provider Gastroenterology 01/22/25 Stephie Montoya MD [address] [place] [address] Home Parenteral Nutrition Provider Gastroenterology 01/22/25 Wildlife Biologist Relationship Specialty Start Date End Date Fredrick Boland DO [address] [place] [address] PCP - General Family Medicine 11/28/24 Xochilt Gaston, KAIN.DIRECTOR OF CLOUD SERVICES [address] [place] [address] [facility] Family [facility] 06/03/24 Maggie Putnam MD [address] [place] [address] Internal Medicine 10/02/24 Ed Saxena, ICE CREAM VAN VENDOR.DIRECTOR OF CLOUD SERVICES [address] [place], [place] 836611 Tie Bucker [facility] 12/10/24 [facility] [address] [place] [address] Transitional Care Pharmacist Pharmacy 12/21/24 03/21/25 Stephie Montoya MD [address] [place] [address] [facility] Provider Gastroenterology 01/22/25 [place] [address] [place] [address] Home Parenteral Nutrition Provider Gastroenterology 01/22/25 Wildlife Biologist Relationship Specialty Start Date End Date Fredrick Boland DO [address] [place] [address] [phone] PCP - General Family Medicine 11/28/24 Xochilt Gaston, ICE CREAM VAN VENDOR.DIRECTOR OF CLOUD SERVICES [address] [place] [address] 982191 Tie B[facility] Family [facility] 06/03/24 Maggie Putnam MD [address] [place] [address]92 Internal Medicine 10/02/24 Ed Saxena, ICE CREAM VAN VENDOR.DIRECTOR OF CLOUD SERVICES [address] [place] [address] [phone] Tie Bucker Family [facility] 12/10/24 Mounika Trent, [facility] [address] [place] [address] Transitional Care Pharmacist Pharmacy 12/21/24 03/21/25 Stephie Montoya MD [address] [place], [place] [phone] [facility] Provider Gastroenterology 01/22/25 Stephie Montoya MD [address] [place] [address] Home Parenteral Nutrition Provider Gastroenterology 01/22/25 Wildlife Biologist Relationship Specialty Start Date End Date Fredrick Boland DO [address] [place] [address] [id number] PCP - General Family Medicine 11/28/24 Xochilt Gaston, ICE CREAM VAN VENDOR.DIRECTOR OF CLOUD SERVICES [address] [place] [address] 434891 [facility] 06/03/24 Maggie Putnam MD [address] [place] [address]694 Internal Medicine 10/02/24 Ed Saxena, ICE CREAM VAN VENDOR.DIRECTOR OF CLOUD SERVICES [address] [place] [address] [facility] 12/10/24 Mounika Trent, [facility] [address] [place] [address] Transitional Care Pharmacist Pharmacy 12/21/24 03/21/25 Stephie Montoya MD [address] [place] [phone] [facility] Provider Gastroenterology 01/22/25 Stephie Montoya MD [address] [place] [phone] Home Parenteral Nutrition Provider Gastroenterology 01/22/25 Wildlife Biologist Relationship Specialty [place] [address] [place] [address] [phone] PCP - General Family Medicine 11/28/24 Xochilt Gaston APRN.DIRECTOR OF CLOUD SERVICES [address] [place] [address] [phone] [facility] 06/03/24 Maggie Putnam MD [address] [place] [address] 80136 Internal Medicine 10/02/24 Ed Saxena APRN.DIRECTOR OF CLOUD SERVICES [address] [place] [address] [facility] 12/10/24 Mounika Trent, [facility] [address] [place] [phone] Transitional Care Pharmacist Pharmacy 12/21/24 03/21/25 Stephie Montoya MD [address] [place] [address] [facility] Gastroenterology 01/22/25 Stephie Montoya MD [address] [place] [address] Home Parenteral Nutrition Provider Gastroenterology 01/22/25 Wildlife Biologist Relationship Specialty Start Date End Date Fredrick Boland DO [address] [place], [place] [id number] PCP - General Family Medicine 11/28/24 Xochilt Gaston APRN.DIRECTOR OF CLOUD SERVICES [address] [place], [place] 415531 Tie B[facility] Family [facility] 06/03/24 Maggie Putnam MD [address] [place], [place] 893724 Internal Medicine 10/02/24 Ed Saxena APRN.DIRECTOR OF CLOUD SERVICES [address] [place], [place] 605441 Tie Bucker [facility] 12/10/24 [facility] [address] [place] [address] Transitional Care Pharmacist Pharmacy 12/21/24 03/21/25 Stephie Montoya MD [address] [place] [phone] [facility] Provider Gastroenterology 01/22/25 Stephie Montoya MD [address] [place] [address] Home Parenteral Nutrition Provider Gastroenterology 01/22/25 Wildlife Biologist Relationship Specialty Start Date End Date Fredrick Boland DO [address] [place] [address] PCP - General Family Medicine 11/28/24 Xochilt Gaston, ICE CREAM VAN VENDOR.DIRECTOR OF CLOUD SERVICES [address] [place] [address] Tie Bucker Family [facility] 06/03/24 Maggie Putnam MD [address] [place] [address] Internal Medicine 10/02/24 Ed Saxena, ICE CREAM VAN VENDOR.DIRECTOR OF CLOUD SERVICES [address] [place], [place] 234091 [facility] [address] [place], [place] [phone] Transitional Care Pharmacist Pharmacy 12/21/24 03/21/25 Stephie Montoya MD [address] [place] [address] [facility] Gastroenterology 01/22/25 Stephie Montoya MD [address] [place], [place] [phone] Home Parenteral Nutrition Provider Gastroenterology 01/22/25 Wildlife Biologist Relationship Specialty Start Date End Date Fredrick Boland DO [address] [place] [address] PCP - General Family Medicine 11/28/24 Xochilt Gaston, ICE CREAM VAN VENDOR.DIRECTOR OF CLOUD SERVICES [address] [place] [address] Tie Bucker Family [facility] 06/03/24 Maggie Putnam MD [address] [place] [address]26 Internal Medicine 10/02/24 Ed Saxena, ICE CREAM VAN VENDOR.DIRECTOR OF CLOUD SERVICES [address] [place] [address] [phone] [facility]24 [facility] [address] [place] [address] Transitional Care Pharmacist Pharmacy 12/21/24 03/21/25 Stephie Montoya MD [address] [place], [place] [phone] [facility] Provider Gastroenterology 01/22/25 Stephie Montoya MD [address] [place], [place] [phone] Home Parenteral Nutrition Provider Gastroenterology 01/22/25 Wildlife Biologist Relationship Specialty Start Date End Date Fredrick Boland DO [address] [place] [address] [phone] PCP - General Family Medicine 11/28/24 Xochilt Gaston APRN.DIRECTOR OF CLOUD SERVICES [address] [place] [address] 306281 [facility] Family [facility] 06/03/24 Maggie Putnam MD [address] [place], [place] 196934 Internal Medicine 10/02/24 Ed Saxena, ICE CREAM VAN VENDOR.DIRECTOR OF CLOUD SERVICES [address] [place], [place] [phone] [facility] 12/10/24 Mounika Trent, [facility] [address] [place] [address] Transitional Care Pharmacist Pharmacy 12/21/24 03/21/25 Stephie Montoya MD [address] [place], [place] [phone] [facility] Provider Gastroenterology 01/22/25 Stephie Montoya MD [address] [place] [address] Home Parenteral Nutrition Provider Gastroenterology 01/22/25 Chance Florentino, RN Registered Nurse General Surgery 02/20/25 Lamar Dey RN Registered Nurse Backup General Surgery 02/20/25 Kirit Devine MD [address] [place] [address] Surgeon General Surgery 02/20/25 Wildlife Biologist Relationship Specialty Start Date End Date Fredrick Boland DO [address] [place] [address] [id number] PCP - General Family Medicine 11/28/24 Xochilt Gaston, KAIN.DIRECTOR OF CLOUD SERVICES [address] [place] [address] [id number] [facility] 06/03/24 Maggie Putnam MD [address] [place] [address] [phone] Internal Medicine 10/02/24 Ed Saxena, ICE CREAM VAN VENDOR.DIRECTOR OF CLOUD SERVICES [address] [place], [place] [id number] [facility] 12/10/24 Mouniak Trent, [facility] [address] [place] [address] Transitional Care Pharmacist Pharmacy 12/21/24 03/21/25 Stephie Montoya MD [address] [place] [phone] [facility] Provider Gastroenterology 01/22/25 Stephie Montoya MD [address] [place] [address] Home Parenteral Nutrition Provider Gastroenterology 01/22/25 Chance Florentino, RN Registered Nurse General Surgery 02/20/25 Lamar Dey RN Registered Nurse Backup General Surgery 02/20/25 Kirit Devine MD [facility] [place] [phone] Surgeon General Surgery 02/20/25 Wildlife Biologist Relationship Specialty Start Date End Date Fredrick Boland DO [address] [place], [place] [id number] PCP - General Family Medicine 11/28/24 Xochilt Gaston APRN.DIRECTOR OF CLOUD SERVICES [address] [place], [place] 617121 [facility] 06/03/24 Maggie Putnam MD [address] [place] [address] [id number] Internal Medicine 10/02/24 Ed Saxena APRN.DIRECTOR OF CLOUD SERVICES [address] [place] [address] [facility] 12/10/24 [facility] [address] [place] [address] Transitional Care Pharmacist Pharmacy 12/21/24 03/21/25 Stephie Montoya MD [address] [place] [address] [facility] Provider Gastroenterology 01/22/25 Stephie Montoya MD [address] [place] [address] Home Parenteral Nutrition Provider Gastroenterology 01/22/25 Chance Florentino, RN Registered Nurse General Surgery 02/20/25 Lamar Dey RN Registered Nurse Backup General Surgery 02/20/25 Kirit Devine MD [address] [place] [address] Surgeon General Surgery 02/20/25 Wildlife Biologist Relationship Specialty Start Date End Date Fredrick Boland DO [address] [place], [place] [id number] PCP - General Family Medicine 11/28/24 Xochilt Gaston, KAIN.DIRECTOR OF CLOUD SERVICES [address] [place] [address] [facility] 06/03/24 Maggie Putnam MD [address] [place] [address] Internal Medicine 10/02/24 Ed Saxena APRN.DIRECTOR OF CLOUD SERVICES [address] [place], [place] 618681 [facility] Family Medicine 12/10/24 [facility] [address] [place] [phone] Transitional Care Pharmacist Pharmacy 12/21/24 03/21/25 [place] [address] [place], [place] [phone] [facility] Provider Gastroenterology 01/22/25 02/28/25 [place] [address] [place], [place] [phone] Home Parenteral Nutrition Provider Gastroenterology 01/22/25 02/28/25 Chance Florentino, RN Registered Nurse General Surgery 02/20/25 Lamar Dey, NATHANAEL Registered Nurse Backup General Surgery 02/20/25 Kirit Devine MD [address] [place] [phone] Surgeon General Surgery 02/20/25 Wildlife Biologist Relationship Specialty Start Date End Date Fredrick Boland DO [address] [place], [place] [id number] PCP - General Family Medicine 11/28/24 Xochilt Gaston APRN.DIRECTOR OF CLOUD SERVICES [address] [place], [place] [phone] [facility] Family [facility] 06/03/24 Maggie Putnam MD [address] [place] [address] Internal Medicine 10/02/24 dE Saxena, ICE CREAM VAN VENDOR.DIRECTOR OF CLOUD SERVICES [facility] [place], [place] [id number] [facility] Family Medicine 12/10/24 Mounika Trent, [facility] [address] [place] [address] Transitional Care Pharmacist Pharmacy 12/21/24 03/21/25 Chance Florentino, RN Registered Nurse General Surgery 02/20/25 Lamar Dey, NATHANAEL Registered Nurse Backup General Surgery 02/20/25 Kirit Devine MD [address] [place], [place] [phone] Surgeon General Surgery 02/20/25 Wildlife Biologist Relationship Specialty Start Date End Date Fredrick Boland DO [address] [place] [id number] PCP - General Family Medicine 11/28/24 Xochilt Gaston, ICE CREAM VAN VENDOR.DIRECTOR OF CLOUD SERVICES [address] [place] [address] [facility] 06/03/24 Maggie Putnam MD [address] [place] [address] [id number] Internal Medicine 10/02/24 Ed Saxena, ICE CREAM VAN VENDOR.DIRECTOR OF CLOUD SERVICES [address] [place] [address] [id number] [facility] Family Medicine 12/10/24 Mounika Trent, [facility] [address] [place], [place] [phone] Transitional Care Pharmacist Pharmacy 12/21/24 03/21/25 Chance Florentino, RN Registered Nurse General Surgery 02/20/25 Lamar Dey, RN Registered Nurse Backup General Surgery 02/20/25 Kirit Devine MD [facility] [place] [address] Surgeon General Surgery 02/20/25 Wildlife Biologist Relationship Specialty Start Date End Date Fredrick Boland DO [address] [place] [address] PCP - General Family Medicine 11/28/24 Xochilt Gaston APRN.DIRECTOR OF CLOUD SERVICES [address] [place] [address] [facility] Family [facility] 06/03/24 Maggie Putnam MD [address] [place] [address] [phone] Internal Medicine 10/02/24 Ed Saxena APRN.DIRECTOR OF CLOUD SERVICES [address] [place] [id number] [facility] Family Medicine 12/10/24 Mounika Trent [facility] [address] [place] [address] Transitional Care Pharmacist Pharmacy 12/21/24 03/21/25 Chance Florentino, RN Registered Nurse General Surgery 02/20/25 Lamar Dey, RN Registered Nurse Backup General Surgery 02/20/25 Kirit Devine MD [address] [place] [address] Surgeon General Surgery 02/20/25 Wildlife Biologist Relationship Specialty Start Date End Date Fredrick Boland DO [address] [place] [address] PCP - General Family Medicine 11/28/24 Xochilt Gaston, ICE CREAM VAN VENDOR.DIRECTOR OF CLOUD SERVICES [address] [place] [address] Tie Bucker Family [facility] 06/03/24 Maggie Putnam MD [address] [place] [address] Internal Medicine 10/02/24 Ed Saxena, ICE CREAM VAN VENDOR.DIRECTOR OF CLOUD SERVICES [address] [place] [address] [facility]24 [place] [address] Transitional Care Pharmacist Pharmacy 12/21/24 03/21/25 Chance Florentino, RN Registered Nurse General Surgery 02/20/25 Lamar Dey, NATHANAEL Registered Nurse Backup General Surgery 02/20/25 Kirit Devine MD [address] [place] [address] Surgeon General Surgery 02/20/25 Wildlife Biologist Relationship Specialty Start Date End Date Fredrick Boland DO [address] [place] [address] PCP - General Family Medicine 11/28/24 Xochilt Gaston, ICE CREAM VAN VENDOR.DIRECTOR OF CLOUD SERVICES [address] [place] [address] [facility] 06/03/24 Maggie Putnam MD [address] [place] [address] Internal Medicine 10/02/24 Ed Saxena APRN.DIRECTOR OF CLOUD SERVICES [address] [place], [place] [phone] [facility] Family [facility] 12/10/24 [facility] [address] [place] [address] Transitional Care Pharmacist Pharmacy 12/21/24 03/21/25 Chance Florentino, RN Registered Nurse General Surgery 02/20/25 Lamar Dey RN Registered Nurse Backup General Surgery 02/20/25 Kirit Devine MD [address] [place] [address] Surgeon General Surgery 02/20/25 FOR RECORDS [...] BE BASED ON THE PRIMARY CLINICAL RECORDS. [facility] [email or web address] [facility]. provides no warranty or guarantee of the accuracy or completeness of information in this document.
[2025-06-23] MEDS: Potassium Chloride Oral Soln 20 MEQ/15 ML UDC 60 MEQ PO (13:03)
[2025-06-23] MEDS: Calcium Gluconate IV 2 GM in 0.9% Normal Saline (100mL Bag) 100 ML IV ×2 (13:06→18:11)
[2025-06-23 15:57] LABS: Magnesium 2.0 mg/dL (1.5-2.2)
[2025-06-23 16:39] LABS: AST(SGOT) 74 U/L (<=31); Alanine Aminotransfer ALT/SGPT 54 U/L (<=34); Albumin, Serum 3.2 g/dL (3.5-5.0); Alkaline Phosphatase 121 U/L (35-104); Anion Gap 16 (7-18); BUN 4 mg/dL (4-19); BUN/Creat Ratio 4.1 RATIO (10-20); Calcium,Total 6.8 mg/dL (7.6-11.0); Carbon Dioxide 18.0 mmol/L (20.0-29.0); Chloride 109 mmol/L (96-106); Estimated Creatinine Clearance 77.38 ml/min (50-250); Globulin 3.0 g/dL (2.2-4.2); Glucose 153 mg/dL (70-99); Potassium 3.6 mmol/L (3.5-5.1)
[2025-06-23] MEDS: 0.9% Saline Lock 10 ML Syringe IV ×2 (18:10→22:05)
[2025-06-23] MEDS: KCL 20MEQ in 0.9% NS 20 MEQ/1,000 ML IV.SOLN. 125 MEQ IV (18:11)
[2025-06-23 19:17] LABS: Magnesium 2.0 mg/dL (1.5-2.2)
[2025-06-23] MEDS: APIXABAN 5 MG TABLET PO (20:47)
[2025-06-23] MEDS: Lactobacillis Acidophilus 2 CAP PO (20:47)
--- NOTE | 2025-06-23 22:26 | NURSING ---
Upon review of patient orders, suicide precautions were active. This information was not communicated during shift report. This RN assessed patient regarding suicidal ideation. Patient denied suicidal thoughts, intent, or plan at this time, and stated she did not answer yes to any suicidal ideation screening questions during this admission. licensed vocational nurse notified of discrepancy in documentation. Will continue to monitor.
[2025-06-23 23:45] LABS: Magnesium 1.7 mg/dL (1.5-2.2)
[2025-06-24] MEDS: 0.9% Saline Lock 10 ML Syringe IV ×2 (02:13→06:10)
[2025-06-24] MEDS: KCL 20MEQ in 0.9% NS 20 MEQ/1,000 ML IV.SOLN. 125 MEQ IV (02:24)
[2025-06-24 03:08] VITALS: BP 98/66; PULSE 74; RESP 16; TEMP 36.9; O2SAT 98
[2025-06-24 06:07] VITALS: BP 108/81; PULSE 84; RESP 16; TEMP 36.3; O2SAT 99
[2025-06-24 06:57] LABS: Hematocrit 32.8 % (37-47); Hemoglobin 10.9 g/dL (12.0-15.0); Immature Granulocytes Count 0.020 X10^3/uL (0.0-0.0); Mean Corp Hgb Conc 33.2 g/dL (32-36); Mean Corpuscular Volume 91.4 fL (81-99); Mean Platelet Vol. 10.5 fl (6.2-12.0); NRBC Flagged by Analyzer 0 % (0-5); Platelet Count 338 K/mm3 (150-450); RBC Distribution Width CV 13.7 % (11.6-14.6); RBC Distribution Width SD 45.5 fl (35.1-43.9); Red Blood Count 3.59 M/mm3 (4.2-5.4); White Blood Count 5.6 K/mm3 (4.4-11.0)
[2025-06-24 07:02] LABS: Magnesium 1.7 mg/dL (1.5-2.2)
[2025-06-24 07:04] LABS: AST(SGOT) 102 U/L (<=31); Alanine Aminotransfer ALT/SGPT 68 U/L (<=34); Albumin, Serum 2.7 g/dL (3.5-5.0); Alkaline Phosphatase 108 U/L (35-104); Anion Gap 9 (7-18); BUN 2 mg/dL (4-19); Calcium,Total 6.8 mg/dL (7.6-11.0); Carbon Dioxide 19.1 mmol/L (20.0-29.0); Chloride 115 mmol/L (96-106); Estimated Creatinine Clearance 96.73 ml/min (50-250); Globulin 2.7 g/dL (2.2-4.2); Glucose 98 mg/dL (70-99); Potassium 3.8 mmol/L (3.5-5.1)
[2025-06-24 07:14] LABS: BUN/Creat Ratio 2.6 RATIO (10-20)
[2025-06-24 09:15] VITALS: BP 104/74; PULSE 68; RESP 16; TEMP 36.7; O2SAT 98
[2025-06-24] MEDS: Doxepin Hydrochloride 10 MG Capsule PO (09:18)
[2025-06-24] MEDS: APIXABAN 5 MG TABLET PO (09:18)
[2025-06-24] MEDS: Calcium Gluconate IV 1 GM in 0.9% Normal Saline (100mL Bag) 100 ML IV (09:18)
[2025-06-24] MEDS: Magnesium Sulfate 2 GM in Dextrose 5%-Water (100mL Bag) 100 ML IV (10:29)
[2025-06-24 12:40] VITALS: BP 105/83; PULSE 69; RESP 16; TEMP 36.8; O2SAT 97
[2025-06-24 15:10] LABS: Magnesium 2.2 mg/dL (1.5-2.2)
[2025-06-24 15:14] LABS: AST(SGOT) 109 U/L (<=31); Alanine Aminotransfer ALT/SGPT 84 U/L (<=34); Albumin, Serum 3.0 g/dL (3.5-5.0); Alkaline Phosphatase 122 U/L (35-104); Anion Gap 11 (7-18); BUN < 2 mg/dL (4-19); BUN/Creat Ratio UNABLE TO CALCULATE RATIO (10-20); Calcium,Total 7.5 mg/dL (7.6-11.0); Carbon Dioxide 18.4 mmol/L (20.0-29.0); Chloride 112 mmol/L (96-106); Estimated Creatinine Clearance 95.59 ml/min (50-250); Globulin 2.7 g/dL (2.2-4.2); Glucose 128 mg/dL (70-99); Potassium 3.4 mmol/L (3.5-5.1)
--- NOTE | 2025-06-24 16:46 | DCINST_ITS ---
Discharge Instructions DC O2, CPAP, BIPAP needs Home O2 Discharge instructions: No Dressing / Incision Discharge Activity: Return to Normal Activity Weight Bearing Status: Weight bearing as tolerated Dressing / Incision Call your doctor if you observe: Fever of 101 or Higher, Shortness of breath, Dizziness, Swelling in the ankles and Chest pain Follow Up Care Test Results: Test results from this visit will be discussed in further detail at your follow- up appointment, if applicable. Discharge Plan Admission Admit Date/Time: 06/23/25 12:24 Primary Reason for Your Visit: electrolyte abnormalities Attending Provider: Sonal Pyle Primary Care Provider: Fredrick Boland Instructions Patient Instructions: Hypocalcemia Dc, Hypokalemia Dc, Hypomagnesemia Dc, High Potassium Diet Dc, ED Hypokalemia Discharge Orders/Prescriptions Prescriptions: New Tums 320 mg calcium (750 mg) tablet,chewable 650 mg PO BID Qty: 60 0RF Continued escitalopram oxalate 20 mg tablet 30 mg PO DAILY omeprazole 40 mg capsule,delayed release(DR/EC) 40 mg PO DAILY doxepin 10 mg capsule 10 mg PO DAILY dicyclomine 10 mg capsule 10 mg PO TID Lactobacillus acidoph-L.bulgar [Floranex] 1 million cell tablet 2 tab PO QHS Patient Comments: pt states she has not yet started taking Eliquis 5 mg tablet 5 mg PO BID ciprofloxacin HCl 500 mg tablet 500 mg PO BID potassium chloride 20 mEq/15 mL liquid 40 meq PO DAILY alprazolam 0.5 mg tablet 0.5 mg PO BID PRN PRN (Reason: anxiety) olanzapine 20 mg tablet 20 mg PO QHS Referrals / Follow Up: Fredrick Boland DO [Primary Care Provider, Medical] - Within 1 Week Disposition Disposition (needs filled in before D/C Order can be placed): Home, Self Care
--- NOTE | 2025-06-24 16:47 | DS.PCM_ITS ---
Providers Date of Admission: 06/23/25 Date of Discharge: 06/24/25 Primary Care Physician: Dr. Fredrick Boland, Reason For Visit: ELECTROLYTE ABNORMALITIES Diagnosis Discharge Diagnosis (1) Hand cramps: Status: Acute Code(s): R25.2 - Cramp and spasm (2) Low magnesium level: Status: Acute Code(s): R79.0 - Abnormal level of blood mineral (3) Hypocalcemia: Status: Acute Code(s): E83.51 - Hypocalcemia (4) Hypokalemia: Status: Acute Code(s): E87.6 - Hypokalemia Plan #Hypokalemia, hypocalcemia and hypomagnesemia * Patient has a history of small bowel obstruction s/p resection and so she likely has some malabsorption and this resulted in recurrent electrolyte abnormalities. * Potassium is 2.5 with calcium of 5.6 and magnesium of 0.5. * Replace aggressively with IV and p.o. potassium, IV magnesium and IV calcium * EKG did not show any changes indicated of electrolyte abnormalities. * Trend electrolytes every 4 hourly * #History of DVT: On Eliquis #History of depression and anxiety as well as bipolar disorder: On lurasidone and olanzapine as well as escitalopram and doxepin DVT prophylaxis: Already on Eliquis Code status: full code Medications at Discharge Home Medications escitalopram oxalate 20 mg tablet 30 mg PO DAILY depression 04/27/22 omeprazole 40 mg capsule,delayed release 40 mg PO DAILY gerd 06/20/23 Lactobacillus acidoph-L.bulgaricus 1 million cell tablet (Floranex) 2 tab PO QHS supplement 05/24/25 apixaban 5 mg tablet (Eliquis) 5 mg PO BID heart 05/24/25 dicyclomine 10 mg capsule 10 mg PO TID gas/bloating 05/24/25 doxepin 10 mg capsule 10 mg PO DAILY pain 05/24/25 alprazolam 0.5 mg tablet 0.5 mg PO BID PRN PRN anxiety 06/23/25 ciprofloxacin HCl 500 mg tablet 500 mg PO BID 06/23/25 olanzapine 20 mg tablet 20 mg PO QHS 06/23/25 potassium chloride 20 mEq/15 mL oral liquid 40 meq PO DAILY 06/23/25 calcium carbonate (Tums) 650 mg (2.0313 x 320 mg calcium (750 mg)) PO BID #60 tabs 12/29/25 Hospital Course Operations None Procedures None Summary of Care Provided Minutes Spent on Discharge: 45 Hospital Course: CHERYL ROSADO, is a 39 F with a PMH as outlined including small bowel who presents via the ED on 06/23/2025 with a complaint of hand cramping and pain which started on the morning of admission. She admitted to a history of low potassium and said she was on potassium supplementation which she has been compliant with. She started having the above symptoms today and said she had also been having diarrhea which had been going on since her partial bowel resection an ileostomy with subsequent reversal. She also admitted to a history of low magnesium. Review of systems is otherwise negative. Vitals in the ED were BP of 116/81, SD of 109, RR of 16 and temp of 97.8F. She was saturating at 98% on room air. CBC showed Hb of 11.9, wbc of 6.3 and platelets of 329. Chemistry showed sodium of 141 potassium of 2.5 and creatinine of 1.04. Bicarb was 23. Calcium level was 5.6 and magnesium was 0.5. She has been admitted to be managed for multiple electrolyte abnormalities with resultant cramping. Magnesium, potassium and calcium were aggressively replaced IV. Hand cramping subsequently resolved and she felt better. On the day of discharge her potassium was 3.4 and magnesium was 2.2. Calcium was 11.5 but corrected for albumin which was 3, calcium was 8.3. She was discharged home with oral Tums for calcium supplementation as well as continued on her oral potassium chloride syrup 40 mEq daily. She is follow-up with her primary care doctor within 1 week for recheck of her electrolytes and is to follow-up for close monitoring of her electrolyte levels. Patient seen and examined prior to discharge. She felt much better and had no active complaints. She had an uneventful night. Review of systems otherwise negative. Labs and vitals reviewed. Medication reviewed and reconciled. Physical Exam Const alert, oriented x3 and no apparent distress General Appearance: cooperative, comfortable and well kempt HEENT normocephalic, head/scalp atraumatic, hearing grossly normal bilaterally, moist oral mucous membranes and oropharynx normal Mouth: oral and palatal mucosa normal Eyes EOMs intact bilaterally and conjunctivae normal Neck supple and no JVD Resp normal respiratory effort, no use of accessory muscles and clear to auscultation bilaterally Cardio regular rate, regular rhythm, S1 normal heart sound, S2 normal heart sound and no murmurs GI normal to inspection, nondistended, normoactive bowel sounds, soft to palpation and non-tender Extremity normal to inspection, full ROM and no clubbing, cyanosis or edema Skin no rashes or lesions noted and no wounds Neuro oriented x3, moves all extremities and no focal motor deficits Sensorium / Orientation: awake and alert Motor Exam: strength 5/5 throughout Psych affect normal Weight / BMI Weight Weight: 179 lb 7.3 oz Body Mass Index (BMI) 28.0 ABG / Lab / Microbiology Data 06/24/25 05:55 06/24/25 14:15 Laboratory: Laboratory Results - last 24 hr 06/23/25 18:52: Magnesium 2.0 06/23/25 23:12: Magnesium 1.7 06/24/25 05:55: WBC 5.6, RBC 3.59 L, Hgb 10.9 L, Hct 32.8 L, MCV 91.4, MCH 30.4, MCHC 33.2, RDW Std Deviation 45.5 H, RDW Coeff of Chris 13.7, Plt Count 338, MPV 10.5, Immature Gran % (Auto) 0.400, Neut % (Auto) 52.6, Lymph % (Auto) 37.5, Benton % (Auto) 6.3, Eos % (Auto) 2.7, Baso % (Auto) 0.5, Absolute Neuts (auto) 3.0, Absolute Lymphs (auto) 2.10, Nucleated RBC % 0, Sodium 143, Potassium 3.8, Chloride 115 H, Carbon Dioxide 19.1 L, Anion Gap 9, BUN 2 L, Creatinine 0.84, Estim Creat Clear Calc 96.73, Est GFR (MDRD) Non-Af 90, BUN/Creatinine Ratio 2.6 L, Glucose 98, Calcium 6.8 L, Magnesium 1.7, Total Bilirubin 0.69, AST 102 H, A LT 68 H, Alkaline Phosphatase 108 H, Total Protein 5.4 L, Albumin 2.7 L, Globulin 2.7, Albumin/Globulin Ratio 1.0 06/24/25 14:15: Sodium 141, Potassium 3.4 L, Chloride 112 H, Carbon Dioxide 18.4 L, Anion Gap 11, BUN < 2 L, Creatinine 0.85, Estim Creat Clear Calc 95.59, Est GFR (MDRD) Non-Af 88, BUN/Creatinine Ratio UNABLE TO CALCULATE L, Glucose 128 H, Calcium 7.5 L, Magnesium 2.2, Total Bilirubin 0.67, AST 109 H, ALT 84 H, A lkaline Phosphatase 122 H, Total Protein 5.6 L, Albumin 3.0 L, Globulin 2.7, Albumin/Globulin Ratio 1.1 D/C Instructions Discharge Activity: Return to Normal Activity Weight Bearing Status: Weight bearing as tolerated Call your doctor if you observe: Fever of 101 or Higher, Shortness of breath, Dizziness, Swelling in the ankles and Chest pain DC O2, CPAP, BIPAP Needs Home O2 Discharge instructions: No DC home with Oxygen: No Patient's Goals Of Care - F/U Goals Reviewed Goals of care reviewed with patient: Yes - No change Meaningful Use Info Meaningful Use Meaningful Use Diagnoses (Choose all that apply): None applicable Discharge Plan Admission Admit Date/Time: 06/23/25 12:24 Primary Reason for Your Visit: electrolyte abnormalities Attending Provider: Sonal Pyle Primary Care Provider: Fredrick Boland Instructions Patient Instructions: Hypocalcemia Dc, Hypokalemia Dc, Hypomagnesemia Dc, High Potassium Diet Dc, ED Hypokalemia Discharge Orders/Prescriptions Prescriptions: New Tums 320 mg calcium (750 mg) tablet,chewable 650 mg PO BID Qty: 60 0RF Continued escitalopram oxalate 20 mg tablet 30 mg PO DAILY omeprazole 40 mg capsule,delayed release(DR/EC) 40 mg PO DAILY doxepin 10 mg capsule 10 mg PO DAILY dicyclomine 10 mg capsule 10 mg PO TID Lactobacillus acidoph-L.bulgar [Floranex] 1 million cell tablet 2 tab PO QHS Patient Comments: pt states she has not yet started taking Eliquis 5 mg tablet 5 mg PO BID ciprofloxacin HCl 500 mg tablet 500 mg PO BID potassium chloride 20 mEq/15 mL liquid 40 meq PO DAILY alprazolam 0.5 mg tablet 0.5 mg PO BID PRN PRN (Reason: anxiety) olanzapine 20 mg tablet 20 mg PO QHS Referrals / Follow Up: Fredrick Boland DO [Primary Care Provider, Medical] - Within 1 Week Disposition Disposition (needs filled in before D/C Order can be placed): Home, Self Care Charges/Coding Visit Charges Inpatient E&M: 93353 Disch Hosp >30min
[2025-06-24] MEDS: Potassium Chloride Oral Tablet 20 MEQ 40 MEQ PO (17:27)
[2025-06-24 17:29] VITALS: BP 110/81; PULSE 80; RESP 16; TEMP 36.8; O2SAT 98
== END 2025-06-24 17:54 | disposition home or self-care (01) | DRG 425 ==
LOC: ED 12:19 → PCU 06-24 10:03
PROVIDERS: Admitting Provider Student in an Organized Health Care Education/Training Program; Emergency Provider Emergency Medicine; PCP Student in an Organized Health Care Education/Training Program; Visit Provider Student in an Organized Health Care Education/Training Program
DX: E87.6 Hypokalemia (principal); E83.51 Hypocalcemia; F31.9 Bipolar disorder, unspecified; F60.3 Borderline personality disorder; F17.210 Nicotine dependence, cigarettes, uncomplicated; F17.290 Nicotine dependence, other tobacco product, uncomplicated; F41.9 Anxiety disorder, unspecified; Z86.718 Personal history of other venous thrombosis and embolism; Z79.01 Long term (current) use of anticoagulants; Z79.899 Other long term (current) drug therapy
CPT/HCPCS: 36415; 80053; 82330; 83690; 83735; 85025; 93005; 99284; A4216; J0612; J2405